=== PATIENT | male | born 1970 | race Caucasian/White ===

== ENCOUNTER 2018-02-03 17:38 | Observation (INO) | payer SELFPAY ==
[2018-02-03] MEDS ORDERED: NA CHLORIDE 0.9% 1,000 ML ONE (19:53)
[2018-02-03 20:02] LABS: Potassium 4.1 mEq/L (3.6-5.0)
[2018-02-03 20:09] LABS: Albumin 3.8 g/dL (3.2-5.5); Bilirubin Direct 0.1 mg/dL (0-0.2); Bilirubin Total 0.5 mg/dL (0.3-1.2); Protein, Total 6.7 g/dL (6.0-8.3)
[2018-02-03 20:10] LABS: Absolute Lymphocytes (CBC) 1.4 K/uL (0.7-4.9); Absolute Monocytes 0.7 K/uL (0.1-1.3); Absolute Neutrophil 6.2 K/uL (1.8-8.0); Basophils % 0.4 % (0-1.3); Eosinophils % 0.9 % (0-4.4); Hematocrit 41.3 % (39.6-49.0); Lymphocytes % 16.6 % (15.3-44.8); MCH 30.1 pg (27.0-35.0); MCV 89.4 fL (80-100); MPV 8.6 fL (7.6-11.3); Monocytes % 8.4 % (3.3-12.3); RBC Red Blood Cell Count 4.62 M/uL (4.33-5.43)
[2018-02-03 20:31] LABS: Urine Blood NEGATIVE (NEG); Urine Glucose NEGATIVE (NEG); Urine Protein 1+ (NEG); Urine Specific Gravity >1.030 (1.005-1.030); Urine pH 5.5 (5.0-7.0)
[2018-02-03 20:33] LABS: Urine Bacteria <20 /HPF (NONE SEEN); Urine RBC <5 /HPF (NONE SEEN)
[2018-02-03 20:34] LABS: Urine Culture Reflex Order NOT NEEDED
--- NOTE | 2018-02-03 20:55 | RAD REPORT ---
EXAM DESCRIPTION: RAD - Abdomen Acute Series - 02/03/2018 8:39 pm CLINICAL HISTORY: Lower chest pain, abdominal pain, abdominal distention COMPARISON: Chest and abdomen imaging September 2016 FINDINGS: Lungs are clear. Heart size and pulmonary vasculature are normal. No pleural effusion, pne umothorax or other acute cardiopulmonary process seen. Trachea is midline. Left hemidiaphragm elevati on is present but less pronounced than on the prior study. Multiple distended to minimally dilated small bowel loops are present. No gastric dilatation. No free air or pneumatosis. Reidel lobe configuration of the liver noted. No suspicious calcifications. Col on does not appear to be dilated at this time. No suspicious calcifications. No significant bone finding. IMPRESSION: Negative single view chest examination. Prominent to mildly dilated small bowel loops. No free air or pneumatosis. Ileus or enteritis current ly favored over small bowel obstruction. Continued follow-up is needed.
--- NOTE | 2018-02-03 22:13 | ER ---
Nurse's Notes [facility] Name: Rico Mcneill Age: 47 yrs Sex: Male : 1970 Arrival Date: 02/03/2018 Time: 17:40 Bed 26 Private MD: None, None Diagnosis: Ileus, unspecified;Colostomy status;Colostomy complication, unspecified;Nausea Presentation: 02/03 17:57 Presenting complaint: Patient states: Abdominal swelling and increased swelling at colostomy stoma since yesterday. Transition of care: patient was not received from another setting of care. Onset of symptoms was February 03, 2018. Risk Assessment: Do you want to hurt yourself or someone else? Patient reports no desire to harm self or others. Care prior to arrival: None. 17:57 Method Of Arrival: Ambulatory 17:57 Acuity: OCTAVIO 3 02/04 00:24 Initial Sepsis Screen: Does the patient meet any 2 criteria? No. Patient's initial tl3 sepsis screen is negative. Does the patient have a suspected source of infection? No. Patient's initial sepsis screen is negative. Triage Assessment: 02/03 17:59 General: Appears in no apparent distress. comfortable, Behavior is calm, cooperative, aj appropriate for age. Pain: Complains of pain in right lower quadrant. Neuro: Level of Consciousness is awake, alert, obeys commands, Oriented to person, place, time, situation, Appropriate for age. Respiratory: Airway is patent Respiratory effort is even, unlabored, Respiratory pattern is regular, symmetrical. GI: Abdomen is distended, Colostomy site is reddened. Ostomy appliance. Derm: Skin is intact, is healthy with good turgor, Skin is pink, warm \T\ dry. normal. Historical: - Allergies: 17:59 NKDA; aj - Home Meds: 17:59 None [Active]; aj - PMHx: 17:59 Bipolar disorder; bowel obstruction; Hypothyroidism; aj - PSHx: 17:59 Colostomy; aj - Immunization history:: Adult Immunizations up to date. - Social history:: Smoking status: Patient/guardian denies using tobacco, Patient uses alcohol, on a daily basis. - Ebola Screening: : Patient negative for fever greater than or equal to 101.5 degrees Fahrenheit, and additional compatible Ebola Virus Disease symptoms Patient denies exposure to infectious person Patient denies travel to an Ebola-affected area in the 21 days before illness onset No symptoms or risks identified at this time. - Family history:: not pertinent. Screenin:33 Abuse screen: Denies threats or abuse. Nutritional screening: No deficits noted. tl3 Tuberculosis screening: No symptoms or risk factors identified. Fall Risk None identified. Assessment: 18:33 General: Appears uncomfortable, well groomed, well developed, well nourished, Behavior tl3 is calm, cooperative, appropriate for age. Pain: Complains of pain in abdomen Pain currently is 8 out of 10 on a pain scale. Pain began 2-3 days ago. Neuro: Level of Consciousness is awake, alert, obeys commands, Oriented to person, place, time, situation, Appropriate for age. Cardiovascular: Heart tones S1 S2 present Patient's skin is warm and dry. Respiratory: Airway is patent Respiratory effort is even, unlabored, Respiratory pattern is regular, symmetrical, Breath sounds are clear bilaterally. GI: Bowel sounds present X 4 quads. hyperactive in right upper quadrant, left upper quadrant, right lower quadrant and left lower quadrant Abd is rigid X 4 quads. : No deficits noted. No signs and/or symptoms were reported regarding the genitourinary system. EENT: No deficits noted. No signs and/or symptoms were reported regarding the EENT system. Derm: No deficits noted. No signs and/or symptoms reported regarding the dermatologic system. Musculoskeletal: No deficits noted. No signs and/or symptoms reported regarding the musculoskeletal system. 18:33 GI: Reports bloating, stoma red and enlarged. tl3 19:32 Reassessment: Patient and/or family updated on plan of care and expected duration. Pain tl3 level reassessed. Patient is alert, oriented x 3, equal unlabored respirations, skin warm/dry/pink. pts stoma has greatly reduced in size, abdomen still distended. Vital Signs: 17:59 BP 127 / 84; Pulse 85; Resp 19; Temp 98.6; Pulse Ox 98% on R/A; Weight 77.11 kg; Height aj 6 ft. 1 in. (185.42 cm); 19:32 BP 118 / 88; Pulse 81; Resp 18; Pulse Ox 100% on R/A; tl3 14 00:24 BP 125 / 82; Pulse 63; Resp 18; Pulse Ox 99% on R/A; tl3 02/03 17:59 Body Mass Index 22.43 (77.11 kg, 185.42 cm) ED Course: 02/03 17:40 Patient arrived in ED. mr 17:40 None, None is Private Physician. mr 17:58 Triage completed. aj 17:59 Arm band placed on right wrist. Patient placed in an exam room. 18:16 Alma Selby, RN is Primary Nurse. tl3 18:33 Patient has correct armband on for positive identification. Bed in low position. Call tl3 light in reach. Side rails up X 1. Adult w/ patient. 18:33 No provider procedures requiring assistance completed. tl3 19:36 Urine Dipstick--Ancillary (enter results) Sent. tl3 19:42 Rashaun Jiménez MD is Attending Physician. [facility] 20:35 Patient moved to radiology via wheelchair. jb2 20:36 X-ray completed. Patient tolerated procedure well. jb2 20:36 Patient moved back from radiology. jb2 20:36 Abdomen Acute Series XRAY In Process Unspecified. EDMS 22:12 Ashlyn Robison MD is Hospitalizing Provider. [facility] 02/04 00:25 Patient admitted, IV remains in place. tl3 Administered Medications: 02/03 20:02 Drug: NS 0.9% 1000 ml Route: IV; Rate: 1 bolus; Site: right antecubital; Delivery: tl3 Primary tubing; 21:10 Follow up: IV Status: Completed infusion; IV Intake: 1000ml tl3 22:45 Drug: Pepcid 20 mg Route: IVP; Infused Over: 2 mins; Site: right antecubital; tl3 23:38 Follow up: Response: No adverse reaction tl3 22:46 Drug: Cipro 400 mg Volume: 200 ml; Route: IVPB; Infused Over: 60 mins; Site: right tl3 antecubital; 02/04 00:23 Follow up: IV Status: Completed infusion; IV Intake: 200ml tl3 02/03 22:46 Drug: Flagyl 500 mg Volume: 100 ml; Route: IVPB; Rate: 200 ml/hr; Infused Over: 30 tl3 mins; Site: right antecubital; 23:38 Follow up: IV Status: Completed infusion; IV Intake: 100ml tl3 Intake: 21:10 IV: 1000ml; Total: 1000ml. tl3 23:38 IV: 100ml; Total: 1100ml. tl3 02/04 00:23 IV: 200ml; Total: 1300ml. tl3 Outcome: 02/03 22:13 Decision to Hospitalize by Provider. [facility] 02/04 00:25 Admitted to Tele accompanied by tech, via wheelchair, with chart, Report called to tl3 BRITTNY Magaña Condition: stable Instructed on the need for admit, Demonstrated understanding of instructions. 00:26 Patient left the ED. tl3 Signatures: Dispatcher [employer] Drea Degroot, RN RN Rashaun Armenta MD MD cha Rivera, Maria mr Buechter, Jesse jb2 Lowrey, Tammy, BRITTNY RN tl3
--- NOTE | 2018-02-03 22:14 | EDPHYS ---
Physician Documentation [facility] Name: Rico Mcneill Age: 47 yrs Sex: Male : 1970 Arrival Date: 02/03/2018 Time: 17:40 Bed 26 Private MD: None, None ED Physician Rashaun Jiménez HPI: 02/03 19:48 This 47 yrs old Male presents to ER via Ambulatory with complaints of diego Abdominal Swelling. 19:48 The patient presents with abdominal pain in the lower abdomen. Onset: The diego symptoms/episode began/occurred 1 day(s) ago. The symptoms do not radiate. Associated signs and symptoms: none. The symptoms are described as crampy. Modifying factors: The symptoms are alleviated by nothing, the symptoms are aggravated by nothing. Severity of pain: At its worst the pain was mild moderate in the emergency department the pain is unchanged. The patient has not experienced similar symptoms in the past. Historical: - Allergies: 17:59 NKDA; aj - Home Meds: 17:59 None [Active]; aj - PMHx: 17:59 Bipolar disorder; bowel obstruction; Hypothyroidism; aj - PSHx: 17:59 Colostomy; aj - Immunization history:: Adult Immunizations up to date. - Social history:: Smoking status: Patient/guardian denies using tobacco, Patient uses alcohol, on a daily basis. - Ebola Screening: : Patient negative for fever greater than or equal to 101.5 degrees Fahrenheit, and additional compatible Ebola Virus Disease symptoms Patient denies exposure to infectious person Patient denies travel to an Ebola-affected area in the 21 days before illness onset No symptoms or risks identified at this time. - Family history:: not pertinent. ROS: 19:48 Constitutional: Negative for fever, chills, and weight loss, Eyes: Negative for injury, diego pain, redness, and discharge, ENT: Negative for injury, pain, and discharge, Neck: Negative for injury, pain, and swelling, Cardiovascular: Negative for chest pain, palpitations, and edema, Respiratory: Negative for shortness of breath, cough, wheezing, and pleuritic chest pain, Back: Negative for injury and pain, : Negative for injury, bleeding, discharge, and swelling, MS/Extremity: Negative for injury and deformity, Skin: Negative for injury, rash, and discoloration, Neuro: Negative for headache, weakness, numbness, tingling, and seizure, Psych: Negative for depression, anxiety, suicide ideation, homicidal ideation, and hallucinations, Allergy/Immunology: Negative for hives, rash, and allergies, Endocrine: Negative for neck swelling, polydipsia, polyuria, polyphagia, and marked weight changes, Hematologic/Lymphatic: Negative for swollen nodes, abnormal bleeding, and unusual bruising. 19:48 Abdomen/GI: Positive for abdominal pain, abdominal distension, of the right lower quadrant, colostomy. Exam: 19:48 Constitutional: This is a well developed, well nourished patient who is awake, alert, diego and in no acute distress. Head/Face: Normocephalic, atraumatic. Eyes: Pupils equal round and reactive to light, extra-ocular motions intact. Lids and lashes normal. Conjunctiva and sclera are non-icteric and not injected. Cornea within normal limits. Periorbital areas with no swelling, redness, or edema. ENT: Nares patent. No nasal discharge, no septal abnormalities noted. Tympanic membranes are normal and external auditory canals are clear. Oropharynx with no redness, swelling, or masses, exudates, or evidence of obstruction, uvula midline. Mucous membranes moist. Neck: Trachea midline, no thyromegaly or masses palpated, and no cervical lymphadenopathy. Supple, full range of motion without nuchal rigidity, or vertebral point tenderness. No Meningismus. Chest/axilla: Normal chest wall appearance and motion. Nontender with no deformity. No lesions are appreciated. Cardiovascular: Regular rate and rhythm with a normal S1 and S2. No gallops, murmurs, or rubs. Normal PMI, no JVD. No pulse deficits. Respiratory: Lungs have equal breath sounds bilaterally, clear to auscultation and percussion. No rales, rhonchi or wheezes noted. No increased work of breathing, no retractions or nasal flaring. Back: No spinal tenderness. No costovertebral tenderness. Full range of motion. Male : Normal genitalia with no discharge or lesions. Skin: Warm, dry with normal turgor. Normal color with no rashes, no lesions, and no evidence of cellulitis. MS/ Extremity: Pulses equal, no cyanosis. Neurovascular intact. Full, normal range of motion. Neuro: Awake and alert, GCS 15, oriented to person, place, time, and situation. Cranial nerves II-XII grossly intact. Motor strength 5/5 in all extremities. Sensory grossly intact. Cerebellar exam normal. Normal gait. Psych: Awake, alert, with orientation to person, place and time. Behavior, mood, and affect are within normal limits. 19:48 Abdomen/GI: Inspection: distension, Bowel sounds: hyperactive, Palpation: nontender, Liver: no appreciated palpable abnormalities, Hernia: not appreciated, colostomy right lower quadrant. Vital Signs: 17:59 BP 127 / 84; Pulse 85; Resp 19; Temp 98.6; Pulse Ox 98% on R/A; Weight 77.11 kg; Height aj 6 ft. 1 in. (185.42 cm); 19:32 BP 118 / 88; Pulse 81; Resp 18; Pulse Ox 100% on R/A; tl3 02/04 00:24 BP 125 / 82; Pulse 63; Resp 18; Pulse Ox 99% on R/A; tl3 02/03 17:59 Body Mass Index 22.43 (77.11 kg, 185.42 cm) MDM: 02/03 19:42 Patient medically screened. [facility] 19:52 Data reviewed: vital signs, nurses notes, lab test result(s), radiologic studies, plain diego films. 02/03 19:24 Order name: Urine Dipstick--Ancillary (enter results); Complete Time: 20:47 2 02/03 19:35 Order name: Amylase, Serum; Complete Time: 20:47 3 02/03 19:35 Order name: Basic Metabolic Panel; Complete Time: 20:47 3 02/03 19:35 Order name: CBC with Diff; Complete Time: 20:47 3 02/03 19:35 Order name: Creatinine for Radiology; Complete Time: 20:47 3 02/03 19:35 Order name: Hepatic Function; Complete Time: 20:47 3 02/03 19:35 Order name: Lipase; Complete Time: 20:47 3 02/03 19:35 Order name: Urine Microscopic Only; Complete Time: 20:47 3 02/03 19:48 Order name: Abdomen Acute Series XRAY; Complete Time: 21:01 diego 02/03 22:23 Order name: Abdomen W Erect EDMS 02/03 19:35 Order name: IV Saline Lock; Complete Time: 19:36 tl3 02/03 19:35 Order name: Labs collected and sent; Complete Time: 19:36 3 02/03 19:35 Order name: Urine Dipstick-Ancillary (obtain specimen); Complete Time: 19:36 3 02/03 21:00 Order name: PO challenge; Complete Time: 21:12 [facility] 02/03 22:19 Order name: CONS Physician Consult; Complete Time: 23:38 EDMS Administered Medications: 20:02 Drug: NS 0.9% 1000 ml Route: IV; Rate: 1 bolus; Site: right antecubital; Delivery: tl3 Primary tubing; 21:10 Follow up: IV Status: Completed infusion; IV Intake: 1000ml tl3 22:45 Drug: Pepcid 20 mg Route: IVP; Infused Over: 2 mins; Site: right antecubital; tl3 23:38 Follow up: Response: No adverse reaction tl3 22:46 Drug: Cipro 400 mg Volume: 200 ml; Route: IVPB; Infused Over: 60 mins; Site: right tl3 antecubital; 02/04 00:23 Follow up: IV Status: Completed infusion; IV Intake: 200ml 3 02/03 22:46 Drug: Flagyl 500 mg Volume: 100 ml; Route: IVPB; Rate: 200 ml/hr; Infused Over: 30 tl3 mins; Site: right antecubital; 23:38 Follow up: IV Status: Completed infusion; IV Intake: 100ml tl3 Disposition: 02/03/18 22:13 Hospitalization ordered by Ashlyn Robison for Observation. Preliminary diagnosis are Ileus, unspecified, Colostomy status, Colostomy complication, unspecified, Nausea. - Bed requested for Telemetry/MedSurg (observation). - Status is Observation. tl3 - Condition is Stable. - Problem is new. - Symptoms have improved. UTI on Admission? No Signatures: Dispatcher [employer] EDMarj Easley RN RN kl Myers, Amanda, RN RN aj Anderson, Corey, MD MD cha Lowrey, Tammy, RN RN tl3 Corrections: (The following items were deleted from the chart) 23:35 22:13 Hospitalization Ordered by Ashlyn Robison MD for Observation. Preliminary diagnosis is Ileus, unspecified; Colostomy status; Colostomy complication, unspecified; Nausea. Bed requested for Telemetry/MedSurg (observation). Status is Observation. Condition is Stable. Problem is new. Symptoms have improved. UTI on Admission? No. diego 02/04 00:26 02/03 23:35 02/03/2018 22:13 Hospitalization Ordered by Ashlyn Robison MD for tl3 Observation. Preliminary diagnosis is Ileus, unspecified; Colostomy status; Colostomy complication, unspecified; Nausea. Bed requested for Telemetry/MedSurg (observation). Status is Observation. Condition is Stable. Problem is new. Symptoms have improved. UTI on Admission? No. kl
[2018-02-03] MEDS ORDERED: FAMOTIDINE 20 MG/2 ML VIAL IV ONE (22:36)
[2018-02-03] MEDS ORDERED: METRONIDAZOLE 500mg IVPB 500 MG/100 ML BAG IV ONE (22:37)
[2018-02-03] MEDS: NA CHLORIDE 0.9% 1,000 ML IV SCH (23:00)
--- NOTE | 2018-02-03 23:29 | P.HP ---
Certification for Inpatient Patient admitted to: Observation With expected LOS: <2 Midnights Practitioner: I am a practitioner with admitting privileges, knowledge of patient current condition, hospital course, and medical plan of care. Services: Services provided to patient in accordance with Admission requirements found in Title 42 Section 412.3 of the Code of Federal Regulations Patient History Date of Service: 02/03/18 Reason for admission: enteritis/ileus History of Present Illness: Mr Mcneill is a 47 years old male with history of bipolar disorder, bowel resection, colostomy after a volvulus episode, who came to ED complaining of abdominal pain and increasing swelling at the stoma area. The pain is mostly on his lower abdomen described as cramps. He denied nausea or vomiting. No fever or chills either. He noticed that his stools are more liquids since this morning. Lab work shows normal WBC count. Abdominal series report ileus vs enteritis. Allergies No Known Drug Allergies Allergy (Verified 09/09/16 22:36) Unknown Home Medications: Docusate [Colace Cap] 100 mg PO BID #60 cap 09/11/16 Lactulose 20 gm PO DAILY #500 ml 09/11/16 - Past Medical/Surgical History -: HTn -: Bipolar Disorder -: HTN -: bowel obstruction -: colon resection -: colostomy - Family History Family History: Reviewed- Non-Contributory - Social History Smoking Status: Never smoker Alcohol use: Yes CD- Drugs: No Caffeine use: Yes Place of Residence: Home Review of Systems 10-point ROS is otherwise unremarkable Physical Examination - Physical Exam General: Alert, In no apparent distress HEENT: Atraumatic, PERRLA, Mucous membr. moist/pink, EOMI, Sclerae nonicteric Neck: Supple, 2+ carotid pulse no bruit, No LAD, Without JVD or thyroid abnormality Respiratory: Clear to auscultation bilaterally, Normal air movement Cardiovascular: Regular rate/rhythm, Normal S1 S2 Gastrointestinal: Hypoactive, Distended, Tenderness Musculoskeletal: No tenderness Integumentary: No rashes Neurological: Normal speech, Normal strength at 5/5 x4 extr, Normal tone, Normal affect Lymphatics: No axilla or inguinal lymphadenopathy - Studies Laboratory Data (last 24 hrs) 02/03/18 19:30: Creatinine 1.37 H 02/03/18 19:30: WBC 8.4, Hgb 13.9, Hct 41.3, Plt Count 233 02/03/18 19:30: Sodium 137, Potassium 4.1, BUN 23 H, Creatinine 1.42 H, Glucose 96, Total Bilirubin 0.5, AST 24, ALT 28, Alkaline Phosphatase 61, Amylase 41, Lipase 31 Assessment and Plan - Problems (Diagnosis) (1) Enteritis Current Visit: Yes Status: Acute (2) Ileus Current Visit: Yes Status: Acute (3) Bipolar 1 disorder, depressed Current Visit: No Status: Chronic - Plan The patient will be admitted to the hospital due to possible enteritis vs ileus. Will continue empiric abx treatment. Keep the patient NPO, start I fluids , empiric antibiotic therapy. Consult Dr Diaz. - Advance Directives Does patient have a Living Will: No Does patient have a Durable POA for Healthcare: No
[2018-02-04] MEDS: NA CHLORIDE 0.9% 1,000 ML IV SCH ×5 (00:56→23:00)
[2018-02-04] MEDS ORDERED: ONDANSETRON 4 MG/2 ML VIAL IV PRN (01:10)
[2018-02-04 01:11] VITALS: BMI 26.4
[2018-02-04] MEDS: METRONIDAZOLE 500mg IVPB 500 MG/100 ML BAG IV SCH ×4 (05:46→16:59)
[2018-02-04 05:52] LABS: Absolute Lymphocytes (CBC) 1.3 K/uL (0.7-4.9); Absolute Monocytes 0.6 K/uL (0.1-1.3); Basophils % 0.8 % (0-1.3); Eosinophils % 1.7 % (0-4.4); Hematocrit 38.5 % (39.6-49.0); Lymphocytes % 25.6 % (15.3-44.8); MCH 30.2 pg (27.0-35.0); MCV 89.2 fL (80-100); MPV 8.4 fL (7.6-11.3); Monocytes % 12.2 % (3.3-12.3); RBC Red Blood Cell Count 4.32 M/uL (4.33-5.43)
[2018-02-04 06:07] LABS: Potassium 3.5 mEq/L (3.6-5.0)
[2018-02-04 06:30] LABS: Magnesium 2.2 mg/dL (1.8-2.5)
[2018-02-04] MEDS: CIPROFLOXACIN 400mg IV 400 MG/200 ML BAG IV SCH ×2 (08:42→20:55)
[2018-02-04] MEDS ORDERED: KCL 20 MEQ/100 mL IVPB 20 MEQ/100 ML BAG IV SCH (09:00)
--- NOTE | 2018-02-04 10:22 | RAD REPORT ---
EXAM DESCRIPTION: RAD - Abdomen W Erect - 02/04/2018 7:05 am CLINICAL HISTORY: ileus Pain COMPARISON: 09/10/2016 FINDINGS: The bowel gas pattern is non-obstructive. No evidence of free air or pneumatosis. Moderate fecal retention is seen. No suspicious calcifications. No significant bony findings. IMPRESSION: Negative examination.
--- NOTE | 2018-02-04 16:59 | PN ---
Date of Progress Note: 02/04/2018 Subjective: The patient seen and examined, chart reviewed, and case discussed with RN. The patient states, he is still having some abdominal pain and swelling of the ostomy. Review of Systems: Negative except as above. Medications: Reviewed. Objective: Vital signs: Temperature 97.3, heart rate 66, blood pressure 122/89, respirations 18, an d O2 98% on room air. General: Awake, alert, oriented x3, some mild distress, ill-appearing male. CV: S1, S2. No murmurs. Regular rate and rhythm. Peripheral pulses present. Respiratory: Clear to auscultation bilaterally. No wheezing. No stridor. No use of accessory musc les. Gastrointestinal: Abdomen is soft. Mild distention. Mild tenderness to palpation. Ostomy site wit h some swelling of the stoma with some dark liquid stool. Extremities: No clubbing, cyanosis, edema. Neurologic: Nonfocal. Laboratory Data: Sodium 140, potassium 3.5, chloride 109, CO2 25, BUN 18, creatinine 1.07, glucose 8 9, calcium 8.1, and magnesium 2.2. WBC 5, H and H 13.1, 38.5, and platelets 191. Abdominal x-ray, p ersonally reviewed, shows negative examination. Bowel gas pattern is nonobstructive, Assessment And Plan: A 47-year-old male with; 1.Enteritis. Continue supportive care. Continue IV fluids. Follow up on stool cultures. 2.Ileus. Abdominal x-ray does not show any obstructive pattern. Dr. Diaz has been consulted. We will follow up with his recommendation. 3.Bipolar 1 disorder, depressed. 4.Essential hypertension, stable. Plan: Continue empiric antibiotics, IV fluids, follow up with surgical recommendations, keep n.p.o. SA/MODL Voice ID: [id number] Report ID: [id number]
[2018-02-04 18:49] VITALS: O2SAT 98
--- NOTE | 2018-02-04 22:53 | CON ---
Date of Consultation: 02/03/2018 Diagnosis: Abdominal pain. Indications: This is a case of a 47-year-old patient with multiple medical problems including bipola r disorder and history of colostomy after a bowel obstruction many years ago, who come with abdominal pain to the ER overnight. He describe his abdominal pain as on and off cramps. No dysuria, hematur ia, hematochezia, or melena. No recent traveling out of the country. No family member sick at home. The patient had an x-ray that suggests an ileus, so the patient was admitted for observation and a surgical consult was obtained. Past Medical History: Hypertension, bipolar, bowel obstruction, colon resection from volvulus. Surgical History: Include bowel resection and colostomy. Family History: Noncontributory. Allergies: NONE. Medication: Colace and lactulose. Social History: The patient does not smoke. He does not drink alcohol. Review of Systems: Constitutional: Denies any fever. Gastrointestinal: As above. Respiratory: Denies any shortness of breath. Genitourinary: Denies any dysuria or hematuria. Physical Examination: General: The patient is awake and alert. HEENT: Pupils are equal and reactive, anicteric. Neck: Supple. Chest: Clear. Heart: S1, S2. Abdomen: Softly distended. Bowel sounds positive. Ostomy intact. There is some gas on the ostomy back at this moment. The ostomy looked nice and pink. The abdomen's midline incision looks well hea led with no guarding or rebound. Rectal: Deferred. Extremities: Good capillary refill. Laboratory Data: Blood work shows WBC count of 8.4, hemoglobin of 13.9, creatinine is 1.42. UA, nit rite and blood negative. X-ray of the abdomen and pelvis was reviewed with the patient with findings possible consistent with an enteritis or gastroenteritis per Dr. Lebron. Assessment: This is a 47-year-old patient, who come with abdominal pain. He feels better today, pas sing gas from the ostomy site. He is tolerating clear liquid diet, and he is tolerating that. We go ing to advance diet slowly. He was counseled once again on proper chewing of his foot. He understan ds the surgical options in case if he develop bowel obstruction. The benefits, alternatives, and ris ks fully explained to him. Hopefully, he improved with conservative treatment. We are going to cont inue with serial abdominal examinations and advance diet. ANGIE/CAROLE Voice ID: [id number] Report ID: [id number]
[2018-02-05] MEDS: METRONIDAZOLE 500mg IVPB 500 MG/100 ML BAG IV SCH ×5 (00:14→23:20)
[2018-02-05] MEDS: NA CHLORIDE 0.9% 1,000 ML IV SCH ×4 (05:07→20:56)
[2018-02-05 05:13] LABS: Potassium 3.7 mEq/L (3.6-5.0)
[2018-02-05] MEDS ORDERED: POTASSIUM CL SA 10 MEQ TAB PO ONE (06:30)
[2018-02-05] MEDS: CIPROFLOXACIN 400mg IV 400 MG/200 ML BAG IV SCH ×2 (09:11→20:55)
--- NOTE | 2018-02-05 20:07 | P.PN ---
Subjective Date of Service: 02/05/18 Primary Care Provider: none Chief Complaint: enteritis/ileus Subjective: Tolerating diet (Clears, will increase to full liquid, Colostomy contents remain liquid/watery) Review of Systems General: Malaise Eyes: Unremarkable ENT: Unremarkable Respiratory: Unremarkable Cardiovascular: Unremarkable Gastrointestinal: As per HPI Genitourinary: Unremarkable Musculoskeletal: Unremarkable Integumentary: Unremarkable Neurological: Unremarkable Physical Examination - Vital Signs Temperature: 97.6 F Blood Pressure: 159/70 Pulse: 64 Respirations: 16 Pulse Ox (%): 99 - Physical Exam General: Alert, In no apparent distress, Oriented x3 HEENT: Atraumatic, Normocephalic, PERRLA Neck: Supple, 2+ carotid pulse no bruit, JVD not distended Respiratory: Clear to auscultation bilaterally, Normal air movement Cardiovascular: No edema, Normal pulses, Regular rate/rhythm Capillary refill: <2 Seconds Gastrointestinal: Other (no vomiting today, green soupy colostomy contents), Hyperactive Musculoskeletal: No clubbing, No swelling Integumentary: No rashes, No breakdown Neurological: Normal gait, Normal speech Lymphatics: No axilla or inguinal lymphadenopathy External genitalia: Deferred Rectal: Deferred Assessment & Plan - Problems (Diagnosis) (1) Enteritis Onset Date: 02/04/18 Current Visit: Yes Status: Acute Plan: Advance diet, keep on empiric antibiotics, reassessment per Dr. Diaz with probable discharge tomorrow
[2018-02-06] MEDS: METRONIDAZOLE 500mg IVPB 500 MG/100 ML BAG IV SCH ×4 (05:18→23:33)
[2018-02-06 07:07] LABS: Potassium 3.8 mEq/L (3.6-5.0)
[2018-02-06] MEDS: CIPROFLOXACIN 400mg IV 400 MG/200 ML BAG IV SCH ×2 (08:31→20:34)
[2018-02-06] MEDS: NA CHLORIDE 0.9% 1,000 ML IV SCH ×3 (08:37→23:31)
[2018-02-06] MEDS ORDERED: POTASSIUM 25 MEQ EFFERV TAB PO ONE (09:00)
--- NOTE | 2018-02-06 12:35 | P.PN ---
Subjective Date of Service: 02/06/18 Primary Care Provider: none Chief Complaint: enteritis/ileus Subjective: Improving (Patient is doing much better no new complaints diet has been advanced) Review of Systems is unable to be obtained Physical Examination - Vital Signs Temperature: 97.7 F Blood Pressure: 97/62 Pulse: 76 Respirations: 15 Pulse Ox (%): 98 - Physical Exam General: Alert, Oriented x3 Neck: Supple Respiratory: Clear to auscultation bilaterally Cardiovascular: No edema Gastrointestinal: Normal bowel sounds, Soft and benign Assessment & Plan - Problems (Diagnosis) (1) Enteritis Onset Date: 02/04/18 Current Visit: Yes Status: Acute Plan: Patient is 47 years of age admitted with abdominal pain antritis currently doing better diet will be advanced chemistries unremarkable CBC normal vital signs stable patient is on IV antibiotics possible discharge Discharge Plan: Home
[2018-02-07] MEDS: METRONIDAZOLE 500mg IVPB 500 MG/100 ML BAG IV SCH (05:27)
[2018-02-07 08:49] VITALS: BP 124/78; TEMP 97.3
[2018-02-07] MEDS: CIPROFLOXACIN 400mg IV 400 MG/200 ML BAG IV SCH (08:54)
[2018-02-07] MEDS: NA CHLORIDE 0.9% 1,000 ML IV SCH (08:54)
--- NOTE | 2018-02-07 10:12 | P.DS ---
Admission Date: 02/03/18 Discharge Date: 02/07/18 Primary Care Provider: none Disposition: ROUTINE DISCHARGE Discharge Condition: FAIR Reason for Admission: enteritis/ileus Consultations: Dr. Tal Diaz - [place] (1) Enteritis Onset Date: 02/04/18 Current Visit: Yes Status: Acute Brief History of Present Illness: 47-year-old admitted with abdominal pain and swelling in the stromal area Hospital Course: Patient's x-rays showed enteritis versus small-bowel obstruction he did well with conservative therapy at the time of discharge patient was well alert oriented responsive cooperative tolerating a full diet vital signs all stable labs unremarkable On examination chest clear cardiovascular stem os all normal abdomen soft extremities no edema Vital Signs/Physical Exam: Temp Pulse Resp BP Pulse Ox 97.3 F 61 19 124/78 99 02/07/18 08:00 02/07/18 08:00 02/07/18 08:00 02/07/18 08:00 02/07/18 08:00 Laboratory Data at Discharge: WBC 5.0 K/uL (4.3-10.9) D 02/04/18 05:12 Hgb 13.1 g/dL (13.6-17.9) L 02/04/18 05:12 Hct 38.5 % (39.6-49.0) L 02/04/18 05:12 Plt Count 191 K/uL (152-406) 02/04/18 05:12 Sodium 140 mEq/L (135-145) 02/06/18 05:57 Potassium 4.0 mEq/L (3.6-5.0) 02/07/18 05:27 BUN 5 mg/dL (6-20) L 02/06/18 05:57 Creatinine 1.12 mg/dL (0.61-1.24) 02/06/18 05:57 Glucose 108 mg/dL (65-120) 02/06/18 05:57 Magnesium 2.2 mg/dL (1.8-2.5) 02/04/18 05:12 Total Bilirubin 0.5 mg/dL (0.3-1.2) 02/03/18 19:30 AST 24 IU/L (10-42) 02/03/18 19:30 ALT 28 IU/L (10-60) 02/03/18 19:30 Alkaline Phosphatase 61 IU/L (42-121) 02/03/18 19:30 Amylase 41 U/L (28-100) 02/03/18 19:30 Lipase 31 U/L (22-51) 02/03/18 19:30 Home Medications: NK [No Home Meds] 02/04/18 Diet: Regular Activity: Ad tomeka Followup: Tal Diaz MD [ACTIVE - CAN ADMIT] -
== END 2018-02-07 11:10 | disposition home or self-care (01) ==
LOC: ER 17:38 → ERHOLD 22:33 → 4TH 23:40
PROVIDERS: ADMIT Internal Medicine; ATTEND Internal Medicine Sleep Medicine
DX: K52.9 Noninfective gastroenteritis and colitis, unspecified (principal); K56.7 Ileus, unspecified; I10 Essential (primary) hypertension; F31.9 Bipolar disorder, unspecified; Z93.3 Colostomy status; R53.81 Other malaise
CPT/HCPCS: 36415; 74019; 74022; 80048; 80076; 81003; 81015; 82150; 83690; 83735; 84132; 85025; 96361; 96365; 96366; 96368; 96375; 99285; G0378; J0744; J7030

== ENCOUNTER 2018-03-14 10:07 | Emergency (ER) | payer SELFPAY ==
--- OUTSIDE RECORDS SUMMARY | 2018-03-14 10:10 | XMS REPORT | Clinical Summary ---
:1970 Author Organization [facility] Address [address] [place] [id number] Care Team Providers Name Role Phone Unavailable Primary Care Provider Unavailable Allergies No Known Allergies Current Medications Prescription Sig. Disp. Refills Start Date End Date Status thiamine, B-1, 100 mg Take 1 tablet 100 tablet 0 04/14/2017 Active tabletIndications: by mouth Alcohol abuse, in daily. remission multivitamin (DAILY Take 1 tablet 100 tablet 0 04/14/2017 Active VITES) by mouth tabletIndications: daily. Alcohol abuse, in remission diphenhydrAMINE Take 1 capsule 24 capsule 0 04/23/2017 05/03/2017 (BANOPHEN) 25 mg by mouth every capsuleIndications: 6 hours as Environmental needed for up allergies to 10 days for Allergies. Active Problems Problem Noted Date Disorder of stoma 05/08/2017 Encounters Date Type Specialty Care Team Description 07/28/2017 Office Visit General Surgery Dennys Arias NO SHOW ENCOUNTER (Primary Dx) Sophia Schultz PA 06/22/2017 - Emergency Emergency Medicine 06/23/2017 06/09/2017 Office Visit General Surgery Nathaniel Granados NO SHOW ENCOUNTER (Primary Dx) Sophia Schultz PA 05/08/2017 Emergency Emergency Medicine Nini Godoy MD Disorder of stoma (Primary Dx); Colostomy complication, unspecified; Intestinal stoma prolapse 04/23/2017 Office Visit Family Practice Leonora Goetz Environmental allergies (Primary Dx); D, WIRE SETTER Homeless; Health education 04/17/2017 Nurse Only Elba Thomason [facility] KADE Evans care (Primary Dx) 04/14/2017 Office Visit Family Practice Leonora Goetz Routine physical examination (Primary Dx); D, WIRE SETTER Alcohol abuse, in remission; Colostomy present; Preventative health care; Positive depression screening; Homeless; Health education; Screening for HIV without presence of risk factors after 03/13/2017 Immunizations Name Dates Previously Given Next Due PPD 04/14/2017 Family History Relation Name Status Comments Father Mother Social History Tobacco Use Types Packs/Day Years Used Date Never Smoker Smokeless Tobacco: Current User Alcohol Use Drinks/Week oz/Week Comments Yes Sex Assigned at Date Recorded Not on file Last Filed Vital Signs Vital Sign Reading Time Taken Blood Pressure 125/83 06/23/2017 3:50 AM CDT Pulse 64 06/23/2017 3:50 AM CDT Temperature 36.7 C (98.1 F) 06/23/2017 3:50 AM CDT Respiratory Rate 18 06/23/2017 3:50 AM CDT Oxygen Saturation 99% 06/23/2017 3:50 AM CDT Inhaled Oxygen Concentration - - Weight 89.4 kg (197 lb) 04/23/2017 1:04 PM CDT Height 182.9 cm (6') 04/23/2017 1:04 PM CDT Body Mass Index 26.72 04/23/2017 1:04 PM CDT Plan of Treatment Health Maintenance Due Date Last Done Comments IMM Influenza Seasonal May to October (>/=19 yrs) 05/24/2018 Results TROPONIN I POC (06/23/2017 3:30 AM)Only the most recent of3 resultswithin the time period is included. Component Value Ref Range Troponin POC 0.00 0.00 - 0.08 ng/mL Specimen Performing Laboratory MISYS 12 LEAD EKG (06/23/2017 3:21 AM)Only the most recent of3 resultswithin the time period is included. 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 Measurements IntervalsAxis Rate: 67 P: 9 LA: 130QRS: 64 QRSD: 106T: 78 QT: 374 QTc:395 Interpretive Statements SINUS RHYTHM POSSIBLE RIGHT VENTRICULAR CONDUCTION DELAY Electronically Signed On 06-23-17 05:04:21 CDT by Chepe Juan M.D. Specimen Performing Laboratory SMS BMP POC (06/22/2017 10:23 PM)Only the most recent of3 resultswithin the time period is included. Component Value Ref Range CO2 POC 26Comment: Physician Notified 21 - 32 mmol/L Chloride POC 98 98 - 107 mmol/L Potassium POC 3.1 (L) 3.50 - 5.10 mmol/L Sodium POC 138 136 - 145 mmol/L Glucose POC 115 (H) 74 - 106 mg/dL Urea Nitrogen POC 14 7 - 18 mg/dL Creatinine POC 0.9 0.6 - 1.3 mg/dL Calcium Ionized POC 1.10 (L) 1.15 - 1.29 mmol/L Hemoglobin POC 17.0 14.0 - 18.0 g/dL Hematocrit POC 50.0 40.0 - 54.0 % GFR, Estimated >60 mL/min/1.73 m2 GFR, Estim, Afr-Am >60 mL/min/1.73 m2 Specimen Performing Laboratory MIS[facility] XRAY CHEST 2 VIEWS (06/22/2017 9:48 PM) Specimen Performing Laboratory SMS Impressions IMPRESSION: No acute abnormality. If the report is described as "FINALIZED" it indicates the attending/staff radiologist below has reviewed the images and agrees with the resident's interpretation. Dictated By: Mervin Zepeda MD, 06/22/2017 11:35 PM I have reviewed the study and agree with the findings in this report. Signed By: Maia Montes MD, 06/23/2017 12:45 AM Narrative EXAM: XRAY CHEST 2 VIEWS 06/22/2017 9:48 PM INDICATION: cp COMPARISON: None FINDINGS: Unremarkable appearance of the heart, mediastinum, lungs and pleural spaces. Mildly elevated left hemidiaphragm. Mild gaseous distention of the visualized stomach. Procedure Note Interface, Rad/Mammog In - 06/23/2017 12:50 AM CDT EXAM: XRAY CHEST 2 VIEWS 06/22/2017 9:48 PM INDICATION: cp COMPARISON: None FINDINGS: Unremarkable appearance of the heart, mediastinum, lungs and pleural spaces. Mildly elevated left hemidiaphragm. Mild gaseous distention of the visualized stomach. IMPRESSION IMPRESSION: No acute abnormality. If the report is described as "FINALIZED" it indicates the attending/staff radiologist below has reviewed the images and agrees with the resident's interpretation. Dictated By: Mervin Zepeda MD, 06/22/2017 11:35 PM I have reviewed the study and agree with the findings in this report. Signed By: Maia Montes MD, 06/23/2017 12:45 AM HIV-1/HIV-2 ROUTINE SCREENING (06/22/2017 9:30 PM) Component Value Ref Range HIV-1/HIV-2 Negative NEG Specimen Performing Laboratory MISYS CBC/DIFF (06/22/2017 9:30 PM)Only the most recent of2 resultswithin the time period is included. Component Value Ref Range WBC 6.1 4.5 - 12.0 K/uL RBC 4.60 4.60 - 6.20 M/uL Hemoglobin 14.0 14.0 - 18.0 g/dL Hematocrit 42.9 40.0 - 54.0 % MCV 93 (H) 82 - 92 fL MCH 30.4 27.0 - 31.0 pg MCHC 32.6 32.0 - 36.0 g/dL RDW 44.9 (H) 35.1 - 43.9 fL Platelet 197 150 - 400 K/uL Mean Platelet Volume 10.5 9.4 - 12.4 fL Percent NRBC 0.0 Absolute NRBC 0.00 Neutrophil 62.9 34.0 - 67.9 % Lymphocyte 24.5 21.8 - 50.0 % Monocyte 10.6 5.3 - 12.0 % Eosinophil 1.5 0.8 - 5.0 % Basophil 0.3 0.2 - 1.2 % Pct Immat Gran 0.2 0.0 - 0.5 Neutrophil, Abs 3.81 1.78 - 5.36 K/uL Lymphocyte, Abs 1.48 1.32 - 3.57 K/uL Monocyte, Abs 0.64 0.30 - 0.82 K/uL Eosinophil, Abs 0.09 0.04 - 0.54 K/uL Basophil, Abs 0.02 0.01 - 0.08 K/uL Absol Immat Gran 0.01 0.00 - 0.03 K/uL Specimen Performing Laboratory Blood MISYS VBG POC (05/07/2017 3:49 PM) Component Value Ref Range pH, Ruthann POC 7.29 (L)Comment: Physician Notified 7.33 - 7.43 pCO2, Ruthann POC 55.7 (H) 38.0 - 50.0 mm Hg pO2, Ruthann POC 17 (L) 50 - 75 mm Hg Base Deficit, Ruthann POC 1 HCO3, Ruthann POC 26.6 (H) 22.0 - 26.0 mmol/L % Sat, Ruthann POC 20 (L) 60 - 85 % Lactic Acid, Ruthann POC 1.33 0.4 - 2.0 mmol/L Sample Type Ruthann TCO2, RUTHANN POC 28 21 - 32 mmol/L Specimen Performing Laboratory [facility] UA CHEMISTRIES (05/07/2017 3:45 PM) Component Value Ref Range Color Yellow Clarity Clear Spec [place] 1.023 1.001 - 1.035 pH 5.0 5 - 8 Protein Negative NEG Glucose Negative NEG Ketone Negative NEG Bilirubin Negative NEG Nitrate Negative NEG Urobilinogen <1.0 0.2 - 1.0 EU/dL Leukocyte Negative NEG Blood Negative NEG Specimen Performing Laboratory Urine MISYS LIVER PROFILE (05/07/2017 3:45 PM) Component Value Ref Range T Protein 6.7 6.4 - 8.2 g/dL Albumin 3.8 3.4 - 5.0 g/dL T Bilirubin 0.3 0.2 - 1.0 mg/dL Alk Phos 96 45 - 117 U/L AST 21 15 - 37 U/L ALT 32 12 - 78 U/L D Bilirubin 0.1 0.0 - 0.2 mg/dL Specimen Performing Laboratory Blood MISYS LIPASE (05/07/2017 3:45 PM) Component Value Ref Range Lipase 262 73 - 393 U/L Specimen Performing Laboratory Blood MISYS POC RAPID HIV (04/14/2017 1:52 PM) Component Value Ref Range Rapid HIV Result Negative Rapid HIV Control Done Specimen Performing Laboratory Blood GLUCOSE POC (04/14/2017 1:51 PM) Component Value Ref Range Glucose POC 149 (H) 74 - 106 mg/dL Specimen Performing Laboratory MISYS after 03/13/2017
--- OUTSIDE RECORDS SUMMARY | 2018-03-14 10:10 | XMS REPORT ---
:1970 Author Organization [facility] Address [address] [place] [address] [address] [place] [address] Care Team Providers Name Role Phone UNKNOWN, REFFERING Primary Care Provider Unavailable VANIA PERAZA Unavailable Unavailable Problems This patient has no known problems. Allergies, Adverse Reactions, Alerts This patient has no known allergies or adverse reactions. Medications This patient has no known medications. Encounters Start End Encounter Admission Attending Care Care Encounter Date/Time Date/Time Type Type Clinicians Facility Department ID 2017-11-02 2017-11-02 Emergency [facility] MED [id number] 08:33:00 08:33:00 2017-08-05 2017-08-05 Outpatient [facility] [id number] 00:00:00 00:00:00 2017-07-28 2017-07-28 Outpatient [facility] [id number] 00:00:00 00:00:00 2017-06-24 2017-06-24 Outpatient [facility] [id number] 00:00:00 00:00:00 2017-06-22 2017-06-22 Emergency [facility] [id number] 21:37:29 21:37:29 2017-06-22 2017-06-22 Emergency [facility] [id number] 21:06:00 21:06:00 2017-06-22 2017-06-22 Outpatient [facility] [id number] 10:02:31 10:02:31 2017-06-09 2017-06-09 Outpatient [facility] [id number] 00:00:00 00:00:00 2017-06-09 2017-06-09 Outpatient [facility] [id number] 00:00:00 00:00:00 2017-05-08 2017-05-08 Emergency [facility] MED [id number] 01:04:44 01:04:44 2017-05-05 2017-05-05 Emergency [facility] MED [id number] 08:11:00 08:11:00 2017-04-15 2017-04-15 Emergency [facility] MED [id number] 09:53:00 09:53:00 2017-04-14 2017-04-14 Outpatient [facility] [id number] 13:31:02 13:31:02 Results Test Description Test Time Test Comments Text Results Atomic Results Result Comments XR ABDOMEN 2 VIEWS 2017-05-05 09:03:45 XR ABDOMEN 2 VIEWSLOCATION: [id number]: Colstomy ProlapseCOMPARISON: Chest radiograph 04/15/2017, CT of the abdomen and pelvis04/14/2017FINDINGS: AP chest and AP supine/upright abdominal radiographs are obtained.The lungs are grossly clear. There is no evidence for pneumothorax. The cardiomediastinal silhouette is within normal limits. A nonspecific, nonobstructive bowel gas pattern is present.There is no evidence for pneumoperitoneum.There are no acute osseous abnormalities.IMPRESSION: 1. No acute cardiopulmonary abnormalities.2. Nonspecific, nonobstructive bowel gas pattern. XR CHEST 1 VIEW 2017-04-15 11:32:15 EXAM: CHEST ONE VIEWINDICATION: Chest painCOMPARISON: None availableTECHNIQUE: AP view of the chest.FINDINGS: The cardiomediastinal silhouette is normal. The lungs are clearbilaterally. No pneumothorax or pleural effusion is identified. Theosseous structures are unremarkable.IMPRESSION: No acute cardiopulmonary process.LOCATION: R16 Blood Type and RH 2017-04-14 21:21:00 Test Item Value Reference Range Comments ABO type (test code=ABO) O Rh Type (test code=RH) Positive Comprehensive Metabolic [id number] 20:36:00 Test Item Value Reference Range Comments Sodium (test code=NA) 137 mmol/L 135-145 Potassium (test code=K) 4.5 mmol/L 3.5-5.1 Chloride (test code=CL) 103 mmol/L 98-105 Carbon Dioxide (test 25 mmol/L 22-29 code=CO2) Glucose (test code=GLU) 85 mg/dL 70-115 Blood Urea Nitrogen 19 mg/dL 6-20 (test code=BUN) Creatinine (test 1.1 mg/dL 0.7-1.2 code=CREAT) Calcium (test code=CA) 9.3 mg/dL 8.3-10.5 Prot Total (test 6.7 g/dL 6.4-8.3 code=TP) Albumin (test code=ALB) 4.3 g/dL 3.5-5.2 A/G Ratio (test 1.8 Ratio code=AGRATIO) Globulin (test 2.4 2.9-3.1 code=GLOB) Bili Total (test 0.3 mg/dL 0.1-0.9 code=TBIL) Alk Phos (test 67 U/L 40-129 code=APHOS) AST (test code=AST) 22 U/L 1-40 HEMOLYZED ALT (test code=ALT) 18 U/L 1-41 BUN/Creatinine Ratio 17.3 (test code=BCRATIO) Anion Gap (test 9 mmol/L 7-16 code=AGAP) Estimated GFR (test >60 mL/min/1.73m2 eGFR (estimated Glomerular code=GFR) Filtration Rate) is an estimated value,calculated from the patient's serum creatinine using the MDRD equation.It is NOT the patient's actual GFR. The eGFR provides a more clinicallyuseful measure of kidney disease than serum creatinine alone.This calculation takes sex and race into account, if the informationis provided. If the race is not provided, and the patient isAfrican-Barbadian, multiply by 1.212. If sex is not provided, and thepatient is female, multiply by 0.742. Results for patients <18 years ofage have not been validated by the MDRD study and should be interpretedwith caution.eGFR Result Interpretation:eGFR > or=60 is in the Normal RangeeGFR < 60 may mean kidney diseaseeGFR < 15 may mean kidney failureRanges recommended by the National Kidney Foundation,http://nkdep.nih .gov Alcohol/Ethanol, [id number] 20:36:00 Test Item Value Reference Range Comments Alcohol, Ethyl (test <0.01 g/dL 0.00-0.01 Intoxicated 0.080 g/dL or code=ETOH) more Prothrombin [id number] 20:00:00 Test Item Value Reference Range Comments PT (test code=PT) 10.10 seconds 9.78-13.35 INR (test code=INR) 0.88 Ratio 0.6-1.2 Partial Thromboplastin [id number] 20:00:00 Test Item Value Reference Range Comments aPTT (test code=PTT) 31.50 seconds 24.39-37.25 CBC with [id number] 19:50:00 Test Item Value Reference Range Comments WBC (test code=WBC) 6.5 K/cumm 4.4-10.5 RBC (test code=RBC) 4.78 M/cumm 4.10-5.70 Hemoglobin (test code=HGB) 14.0 gm/dL 13.4-17.4 Hematocrit (test code=HCT) 44.9 % 38.7-52.0 MCV (test code=MCV) 93.8 fL 80-100 MCH (test code=MCH) 29.2 pg 27.0-32.5 MCHC (test code=MCHC) 31.1 g/dL 32.0-37.5 RDW (test code=RDW) 16.7 % 11.5-14.5 Platelet Count (test code=PLTCT) 208 K/cumm 140-440 MPV (test code=MPV) 8.6 fL Diff Method (test code=DIFFM) Auto Neutrophil (test code=NEUT) 55.7 % 36-70 Lymphocyte (test code=LYMPH) 34.6 % 12-44 Monocyte (test code=MONO) 6.6 % 0-11 Eosinophil (test code=EOS) 2.6 % 0-7 Basophil (test code=BASO) 0.5 % 0-2 Neutro Abs (test code=ANEUT) 3.6 K/cumm 1.6-7.4 Lymph Abs (test code=ALYMPH) 2.2 K/cumm 0.5-4.6 [place] Abs (test code=AMONO) 0.4 K/cumm 0.0-1.2 Eos Abs (test code=AEOS) 0.17 K/cumm 0.00-0.74 Baso Abs (test code=ABASO) 0.0 K/cumm 0.00-0.21 78531& PELVIS W/O [id number] 17:36:28CT ABDOMEN AND PELVIS WITHOUT CONTRAST.CLINICAL HISTORY: Abdominal pain, GI bleeding, abdominal surgery 6months ago COMPARISON: None TECHNIQUE: Noncontrast images of the abdomen and pelvis were obtainedfrom the diaphragm to the pelvic floor. Coronal and sagittal reformatswere obtained. Oral contrast was not provided. One or more of thefollowing dose reduction techniques were used: Automated exposurecontrol, adjustment of the mA and/or kV according to patient size,and/or utilization of iterative reconstruction technique. FINDINGS:The visualized lung bases are clear. No pleural effusion is seen. Theheart size is normal.Evaluation of the abdominal viscera is limited to lack of intravenouscontrast. The left hepatic lobe is diminutive. No intrahepatic mass isidentified. The gallbladder is contracted. The spleen is normal insize. The pancreas, adrenal glands, and kidneys appear normal. Nohydronephrosis or nephrolithiasis is identified.Oral contrast was not provided. The patient has a right lower quadrantileostomy. The small and large bowel loops show mild diffuse wallthickening. There is no abnormally distended loop of bowel to suggestan obstruction. No free air or free fluid is seen. The normal appendixis identified. The urinary bladder is empty. The prostate gland is normal in size. Noadenopathy is identified.The bones are intact.IMPRESSION: 1. Mild nonspecific wall thickening of the small and large bowel. Correlate for possible enterocolitis.2. Right lower quadrant ileostomy.Location: R16
--- NOTE | 2018-03-14 11:54 | EDPHYS ---
Physician Documentation [facility] Name: Rico Mcneill Age: 48 yrs Sex: Male : 1970 Arrival Date: 03/14/2018 Time: 10:08 Bed 5 Private MD: None, None ED Physician Rashaun Jiménez HPI: 03/14 10:45 This 48 yrs old Male presents to ER via Ambulatory with complaints of needing snw colostomy bags. 10:45 The patient presents with need of supplies. Onset: The symptoms/episode began/occurred snw gradually, 1 week(s) ago, and became persistent. The symptoms do not radiate. Associated signs and symptoms: Pertinent positives: using cup to collect colostomy discharge. The symptoms are described as none. Severity of pain: in the emergency department the pain none. The patient has experienced similar episodes in the past. It is unknown whether or not the patient has recently seen a physician. pt is homeless and has had no colostomy supplies x 1 week. Historical: - Allergies: 10:41 NKDA; iw - PMHx: 10:41 Bipolar disorder; bowel obstruction; Hypertension; Hypothyroidism; iw - PSHx: 10:41 Colostomy; iw - Immunization history:: Adult Immunizations not up to date. - Social history:: Smoking status: Patient uses tobacco products, chewing tobacco. - Ebola Screening: : No symptoms or risks identified at this time. ROS: 10:40 Constitutional: Negative for fever, chills, and weight loss, Eyes: Negative for injury, snw pain, redness, and discharge, ENT: Negative for injury, pain, and discharge, Neck: Negative for injury, pain, and swelling, Cardiovascular: Negative for chest pain, palpitations, and edema, Respiratory: Negative for shortness of breath, cough, wheezing, and pleuritic chest pain, Back: Negative for injury and pain, : Negative for injury, bleeding, discharge, and swelling, MS/Extremity: Negative for injury and deformity, Skin: Negative for injury, rash, and discoloration, Neuro: Negative for headache, weakness, numbness, tingling, and seizure. 10:40 Abdomen/GI: Positive for needs supplies for colostomy, pt is homeless and is using a paper cup to collect stool. Exam: 10:41 Head/Face: Normocephalic, atraumatic. Eyes: Pupils equal round and reactive to light, snw extra-ocular motions intact. Lids and lashes normal. Conjunctiva and sclera are non-icteric and not injected. Cornea within normal limits. Periorbital areas with no swelling, redness, or edema. ENT: Nares patent. No nasal discharge, no septal abnormalities noted. Tympanic membranes are normal and external auditory canals are clear. Oropharynx with no redness, swelling, or masses, exudates, or evidence of obstruction, uvula midline. Mucous membranes moist. Neck: Trachea midline, no thyromegaly or masses palpated, and no cervical lymphadenopathy. Supple, full range of motion without nuchal rigidity, or vertebral point tenderness. No Meningismus. Chest/axilla: Normal chest wall appearance and motion. Nontender with no deformity. No lesions are appreciated. Cardiovascular: Regular rate and rhythm with a normal S1 and S2. No gallops, murmurs, or rubs. Normal PMI, no JVD. No pulse deficits. Respiratory: Lungs have equal breath sounds bilaterally, clear to auscultation and percussion. No rales, rhonchi or wheezes noted. No increased work of breathing, no retractions or nasal flaring. Back: No spinal tenderness. No costovertebral tenderness. Full range of motion. Skin: Warm, dry with normal turgor. Normal color with no rashes, no lesions, and no evidence of cellulitis. MS/ Extremity: Pulses equal, no cyanosis. Neurovascular intact. Full, normal range of motion. Neuro: Awake and alert, GCS 15, oriented to person, place, time, and situation. Cranial nerves II-XII grossly intact. Motor strength 5/5 in all extremities. Sensory grossly intact. Cerebellar exam normal. Normal gait. 10:41 Constitutional: The patient appears in no acute distress, excessively tanned skin 10:41 Abdomen/GI: Inspection: abdomen appears normal, colostomy with external stoma, denies pain, denies bleeding, normal appearance per patient. Vital Signs: 10:40 BP 120 / 83; Pulse 83; Resp 16 S; Temp 98.6; Pulse Ox 98% on R/A; Weight 77.11 kg; iw Height 6 ft. 1 in. (185.42 cm); Pain 0/10; 11:55 BP 114 / 74; Pulse 88; Resp 18 S; Pulse Ox 99% on R/A; aa5 10:40 Body Mass Index 22.43 (77.11 kg, 185.42 cm) [facility]: 10:28 Patient medically screened. [facility] 11:54 Data reviewed: vital signs, nurses notes. Data interpreted: Pulse oximetry: on room air snw is 98 %. Interpretation: normal. Counseling: I had a detailed discussion with the patient and/or guardian regarding: the historical points, exam findings, and any diagnostic results supporting the discharge/admit diagnosis, the presence of at least one elevated blood pressure reading (>120/80) during this emergency department visit, the need for outpatient follow up, to return to the emergency department if symptoms worsen or persist or if there are any questions or concerns that arise at home. Special discussion: Based on the history and exam findings, there is no indication for further emergent testing or inpatient evaluation. I discussed with the patient/guardian the need to see the primary care provider for further evaluation of the symptoms. 03/14 11:51 [place] [facility] [place] supply; Complete Time: 11:59 snw Administered Medications: No medications were administered Disposition: 03/14/18 11:52 Discharged to Home. Impression: Encounter for screening, unspecified. - Condition is Stable. - Medication Reconciliation Form, Thank You Letter, Antibiotic Education, Prescription Opioid Use form. - Follow up: Private Physician; When: 2 - 3 days; Reason: Recheck today's complaints, Continuance of care, Re-evaluation by your physician. Follow up: Emergency Department; When: As needed; Reason: Worsening of condition. Addendum: 03/15/2018 15:16 Co-signature as Attending Physician, Rashaun Jiménez MD I agree with the assessment and c bojorquez plan of care. Signatures: Rashaun Jiménez MD MD cha Therrien, Shelly, TAPROOM ATTENDANT-C TAPROOM ATTENDANT-Csnw Ashlie Goetz, RN RN Julissa Maldonado RN RN aa5 Corrections: (The following items were deleted from the chart) 03/14 12:03 11:52 03/14/2018 11:52 Discharged to Home. Impression: Encounter for screening, aa5 unspecified. Condition is Stable. Forms are Medication Reconciliation Form, Thank You Letter, Antibiotic Education, Prescription Opioid Use. Follow up: Private Physician; When: 2 - 3 days; Reason: Recheck today's complaints, Continuance of care, Re-evaluation by your physician. Follow up: Emergency Department; When: As needed; Reason: Worsening of condition. snw
--- NOTE | 2018-03-14 11:54 | ER ---
Nurse's Notes [facility] Name: Rico Mcneill Age: 48 yrs Sex: Male : 1970 Arrival Date: 03/14/2018 Time: 10:08 Bed 5 Private MD: None, None Diagnosis: Encounter for screening, unspecified Presentation: 03/14 10:35 Presenting complaint: Patient states: has been out of colostomy supplies X 1 month, pt iw is homeless and has not been able to buy supplies, hx of colostomy X 2 years at [facility] s/p bowel obstruction. 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 Transition of care: patient was not received from another setting of care. Onset of symptoms was January 2018. Care prior to arrival: None. 10:35 Method Of Arrival: Ambulatory iw 10:38 Risk Assessment: Do you want to hurt yourself or someone else? Patient reports no iw desire to harm self or others. Initial Sepsis Screen: Does the patient meet any 2 criteria? No. Patient's initial sepsis screen is negative. Does the patient have a suspected source of infection? No. Patient's initial sepsis screen is negative. 10:38 Acuity: OCTAVIO 3 iw Historical: - Allergies: 10:41 NKDA; iw - PMHx: 10:41 Bipolar disorder; bowel obstruction; Hypertension; Hypothyroidism; iw - PSHx: 10:41 Colostomy; iw - Immunization history:: Adult Immunizations not up to date. - Social history:: Smoking status: Patient uses tobacco products, chewing tobacco. - Ebola Screening: : No symptoms or risks identified at this time. Screenin:40 Abuse screen: Denies threats or abuse. Nutritional screening: No deficits noted. aa5 Tuberculosis screening: No symptoms or risk factors identified. Fall Risk None identified. Assessment: 10:40 General: Appears comfortable, Behavior is calm, cooperative. Pain: Denies pain. Neuro: aa5 Level of Consciousness is awake, alert, obeys commands, Oriented to person, place, time, situation. Cardiovascular: Heart tones S1 S2 present Rhythm is regular. Respiratory: Airway is patent Respiratory effort is even, unlabored, Respiratory pattern is regular, symmetrical. GI: Abdomen is distended, Colostomy site is clean and dry. appears healthy, red in color, no ostomy appliance noted at this time. Pt states "my ostomy bag blew up last night and that was my last one" Bowel sounds present X 4 quads. Abd is non tender X 4 quads. : No signs and/or symptoms were reported regarding the genitourinary system. EENT: No signs and/or symptoms were reported regarding the EENT system. Derm: Skin is pink, warm \\T\\ dry. Musculoskeletal: Range of motion: intact in all extremities. 11:52 Reassessment: Colostomy care provided, colostomy bag placed with paste and secured with aa5 colostomy belt. Pt also given several colostomy supplies per [employer]. Pt reports he is homeless and unable to afford supplies. Pt also reports friend will help him buy supplies later. . 12:00 Reassessment: Patient is alert, oriented x 3, equal unlabored respirations, skin aa5 warm/dry/pink. Vital Signs: 10:40 BP 120 / 83; Pulse 83; Resp 16 S; Temp 98.6; Pulse Ox 98% on R/A; Weight 77.11 kg; iw Height 6 ft. 1 in. (185.42 cm); Pain 0/10; 11:55 BP 114 / 74; Pulse 88; Resp 18 S; Pulse Ox 99% on R/A; aa5 10:40 Body Mass Index 22.43 (77.11 kg, 185.42 cm) iw ED Course: 10:08 Patient arrived in ED. mr 10:10 None, None is Private Physician. mr 10:15 [facility] snw 10:15 Rashaun Jiménez MD is Attending Physician. snw 10:32 Julissa Roy, BRITTNY is Primary Nurse. aa5 10:39 Triage completed. iw 10:40 Arm band placed on. iw 10:40 Patient has correct armband on for positive identification. Placed in gown. Bed in low aa5 position. Call light in reach. Side rails up X2. Adult w/ patient. 12:00 Patient did not have IV access during this emergency room visit. aa5 12:00 No provider procedures requiring assistance completed. aa5 Administered Medications: No medications were administered Outcome: 11:52 Discharge ordered by . snw 12:00 Discharged to home ambulatory, with friend. aa5 12:00 Condition: good 12:00 Discharge instructions given to patient, Instructed on discharge instructions, follow up and referral plans. Demonstrated understanding of instructions, follow-up care. 12:03 Patient left the ED. aa5 Signatures: Belem Mcnamara FNP-C FNP-Elisa Sutton Ashlie Goetz, RN RN iw Julissa Roy RN RN aa5 Corrections: (The following items were deleted from the chart) 10:39 10:35 Presenting complaint: Patient states: has been out of colostomy supplies X 1 iw month, pt is homeless and has not been able to buy supplies, hx of colostomy X 2 years at [facility] s/p bowel obstruction. Pt denies pain, abd distention is chronic since the colostomy iw
[2018-03-14 12:06] VITALS: BP 120/83; TEMP 98.6; O2SAT 98
== END 2018-03-14 12:03 | disposition home or self-care (01) ==
LOC: ER 10:07
DX: Z13.9 Encounter for screening, unspecified (principal); I10 Essential (primary) hypertension; Z72.0 Tobacco use
CPT/HCPCS: 99281

== ENCOUNTER 2018-11-27 20:08 | Emergency (ER) | payer SELFPAY ==
--- OUTSIDE RECORDS SUMMARY | 2018-11-27 20:10 | XMS REPORT ---
:1970 Author Organization [facility] Address [address] [place] [address] [address]. [address] [place] [address] Care Team Providers Name Role Phone UNKNOWN, [...] Facility Department ID 2017-11-02 2017-11-02 Emergency [facility] [id number] 08:33:00 08:33:00 2017-08-05 2017-08-05 Outpatient [facility] [id number] 00:00:00 00:00:00 2017-07-28 2017-07-28 Outpatient [facility] [id number] 00:00:00 00:00:00 2017-06-24 2017-06-24 Outpatient [facility] [id number] 00:00:00 00:00:00 2017-06-22 2017-06-22 Emergency [facility] [id number] 21:37:29 21:37:29 2017-06-22 2017-06-22 Emergency [facility] [id number] 21:06:00 21:06:00 2017-06-22 2017-06-22 Outpatient [facility] [id number] 10:02:31 10:02:31 2017-06-09 2017-06-09 Outpatient [facility] [id number] 00:00:00 00:00:00 2017-06-09 2017-06-09 Outpatient [facility] [id number] 00:00:00 00:00:00 2017-05-08 2017-05-08 Emergency [facility] MED [id number] 01:04:44 01:04:44 2017-05-05 2017-05-05 Emergency [facility] [id number] 08:11:00 08:11:00 2017-04-15 2017-04-15 Emergency [facility] MED [id number] 09:53:00 09:53:00 2017-04-14 2017-04-14 Outpatient [facility] [id number] 13:31:02 13:31:02 Results Test Description Test Time Test Comments Text Results Atomic Results Result Comments XR ABDOMEN 2 VIEWS 2017-05-05 09:03:45 XR ABDOMEN 2 VIEWSLOCATION: [id number]: Colstomy ProlapseCOMPARISON: Chest radiograph 04/15/2017, CT of [...] Rh Type (test code=RH) Positive Comprehensive Metabolic [id number] 20:36:00 Test Item Value Reference Range Comments [...] race is not provided, and the patient isAfrican-Andorran, multiply by 1.212. If sex is not provided, and thepatient is female, multiply by 0.742. Results for patients <18 years ofage have not been validated by the MDRD study and should be interpretedwith caution.eGFR Result Interpretation:eGFR > or=60 is in the Normal RangeeGFR < 60 may mean kidney diseaseeGFR < 15 may mean kidney failureRanges recommended by the National Kidney Foundation,http://nkdep.nih .gov Alcohol/Ethanol, [id number] 20:36:00 Test Item Value Reference Range Comments Alcohol, Ethyl (test <0.01 g/dL 0.00-0.01 Intoxicated 0.080 g/dL or code=ETOH) more Prothrombin [id number] 20:00:00 Test Item Value Reference Range Comments PT (test code=PT) 10.10 seconds 9.78-13.35 INR (test code=INR) 0.88 Ratio 0.6-1.2 Partial Thromboplastin [id number] 20:00:00 Test Item Value Reference Range Comments aPTT (test code=PTT) 31.50 seconds 24.39-37.25 CBC with [id number] 19:50:00 Test Item Value Reference Range Comments [...] Lymph Abs (test code=ALYMPH) 2.2 K/cumm 0.5-4.6 [place] Abs (test code=AMONO) 0.4 K/cumm 0.0-1.2 Eos Abs (test code=AEOS) 0.17 K/cumm 0.00-0.74 Baso Abs (test code=ABASO) 0.0 K/cumm 0.00-0.21 [id number]& PELVIS W/O [id number] 17:36:28CT ABDOMEN AND PELVIS WITHOUT CONTRAST.CLINICAL HISTORY: [...]
[2018-11-27] MEDS ORDERED: NA CHLORIDE 0.9% 1,000 ML ONE (20:53)
--- NOTE | 2018-11-27 22:00 | ER ---
Nurse's Notes [facility] Name: Rico Mcneill Age: 48 yrs Sex: Male : 1970 Arrival Date: 11/27/2018 Time: 20:10 Bed 30 Private MD: Diagnosis: Colostomy complication, unspecified Presentation: 11/27 20:11 Presenting complaint: EMS states: they were toned out for report of pt with abdominal bb pain, pt is indigent and has a GI stoma which is open and protruding pt does not have supplies to keep stoma covered for approx 2 weeks now. Transition of care: patient was not received from another setting of care. Onset of symptoms was November 14, 2018. Risk Assessment: Do you want to hurt yourself or someone else? Patient reports no desire to harm self or others. Initial Sepsis Screen: Does the patient meet any 2 criteria? No. Patient's initial sepsis screen is negative. Does the patient have a suspected source of infection? Yes: Skin breakdown/wound. Care prior to arrival: Medication(s) given: Normal saline infusion, toradol 30 mg IV initiated. 20 GA, in the left forearm. 20:11 Method Of Arrival: EMS: [facility] bb 20:11 Acuity: OCTAVIO 2 bb Historical: - Allergies: 20:18 NKDA; bb - Home Meds: 20:18 None [Active]; bb - PMHx: 20:18 Bipolar disorder; bowel obstruction; Hypertension; Hypothyroidism; bb - PSHx: 20:18 bowel surgery with ileostomy; bb - Immunization history:: Adult Immunizations unknown. - Social history:: Smoking status: Patient/guardian denies using tobacco, Patient uses alcohol, occasionally. - Ebola Screening: : No symptoms or risks identified at this time. Screenin:47 Abuse screen: Denies threats or abuse. Denies injuries from another. Nutritional mg2 screening: No deficits noted. Tuberculosis screening: No symptoms or risk factors identified. Fall Risk IV access (20 points). Assessment: 20:45 General: Appears in no apparent distress. comfortable, Behavior is calm, cooperative. mg2 Pain: Complains of pain in abdomen Pain does not radiate. Pain currently is 3 out of 10 on a pain scale. Quality of pain is described as aching, Pain began gradually, Is intermittent. Neuro: Level of Consciousness is awake, alert, obeys commands, Oriented to person, place, time, situation. Cardiovascular: Capillary refill < 3 seconds Patient's skin is warm and dry. Respiratory: Airway is patent Respiratory effort is even, unlabored, Respiratory pattern is regular, symmetrical. GI: Abdomen is round distended, Colostomy site is reddened. is not intact. open without colostomy bag in placed., Reports lower abdominal pain, upper abdominal pain. 20:48 GI: Bowel sounds present X 4 quads. Abd is rigid X 4 quads. mg2 22:26 Reassessment: Patient denies pain at this time. mg2 22:27 Reassessment: colostomy bag applied. patient tolerated well. mg2 Vital Signs: 20:18 BP 130 / 93; Pulse 82; Resp 16 S; Temp 99.6(O); Pulse Ox 99% on R/A; Weight 79.38 kg bb (R); Height 6 ft. 1 in. (185.42 cm) (R); Pain 6/10; 22:20 BP 125 / 78; Pulse 80; Resp 18; Pulse Ox 100% on R/A; Pain 0/10; mg2 20:18 Body Mass Index 23.09 (79.38 kg, 185.42 cm) bb ED Course: 20:10 Patient arrived in ED. bb 20:13 Triage completed. bb 20:18 Oliver Sweeney MD is Attending Physician. gs 20:18 Arm band placed on Patient placed in an exam room, on a stretcher, on pulse oximetry. bb 20:40 Edgardo Tinoco, BRITTNY is Primary Nurse. mg2 20:47 No provider procedures requiring assistance completed. Maintain EMS IV. Dressing mg2 intact. Good blood return noted. Site clean \T\ dry. Gauge \T\ site: 20 \T\ LFA. 20:48 Patient has correct armband on for positive identification. Pulse ox on. NIBP on. Door mg2 closed. Warm blanket given. 21:59 Tal Diaz MD is Referral Physician. gs 22:26 IV discontinued, intact, bleeding controlled, No redness/swelling at site. Pressure mg2 dressing applied. Wound care:. Administered Medications: 20:44 Drug: NS 0.9% 1000 ml Route: IV; Rate: 1 bolus; Site: left forearm; mg2 22:28 Follow up: Response: No adverse reaction; IV Status: Completed infusion mg2 Outcome: 21:59 Discharge ordered by . uday 22:28 Discharged to home ambulatory. mg2 22:28 Condition: stable 22:28 Discharge instructions given to patient, Instructed on discharge instructions, follow up and referral plans. Demonstrated understanding of instructions, follow-up care. 22:29 Patient left the ED. mg2 Signatures: Montserrat Parnell RN RN bb Oliver Sweeney MD MD gs Gardose, Michele, RN RN mg2
--- NOTE | 2018-11-27 22:00 | EDPHYS ---
Physician Documentation [facility] Name: Rico Mcneill Age: 48 yrs Sex: Male : 1970 Arrival Date: 11/27/2018 Time: 20:10 Bed 30 Private MD: ED Physician Oliver Sweeney HPI: 11/27 21:26 This 48 yrs old Male presents to ER via EMS with complaints of GI stoma gs problem. 21:26 The patient presents with no colostomy bags for 2 weeks. Associated signs and symptoms: gs Pertinent negatives: nausea and vomiting, diarrhea, dysuria, fever. The symptoms are described as achy. Severity of pain: At its worst the pain was very mild in the emergency department the pain is unchanged. The patient has experienced similar episodes in the past, a few times. Historical: - Allergies: 20:18 NKDA; bb - Home Meds: 20:18 None [Active]; bb - PMHx: 20:18 Bipolar disorder; bowel obstruction; Hypertension; Hypothyroidism; bb - PSHx: 20:18 bowel surgery with ileostomy; bb - Immunization history:: Adult Immunizations unknown. - Social history:: Smoking status: Patient/guardian denies using tobacco, Patient uses alcohol, occasionally. - Ebola Screening: : No symptoms or risks identified at this time. ROS: 21:26 All other systems are negative. gs Exam: 21:26 Head/Face: Normocephalic, atraumatic. Eyes: Pupils equal round and reactive to light, gs extra-ocular motions intact. Lids and lashes normal. Conjunctiva and sclera are non-icteric and not injected. Cornea within normal limits. Periorbital areas with no swelling, redness, or edema. ENT: Nares patent. No nasal discharge, no septal abnormalities noted. Tympanic membranes are normal and external auditory canals are clear. Oropharynx with no redness, swelling, or masses, exudates, or evidence of obstruction, uvula midline. Mucous membranes moist. Neck: Trachea midline, no thyromegaly or masses palpated, and no cervical lymphadenopathy. Supple, full range of motion without nuchal rigidity, or vertebral point tenderness. No Meningismus. Chest/axilla: Normal chest wall appearance and motion. Nontender with no deformity. No lesions are appreciated. Cardiovascular: Regular rate and rhythm with a normal S1 and S2. No gallops, murmurs, or rubs. Normal PMI, no JVD. No pulse deficits. Respiratory: Lungs have equal breath sounds bilaterally, clear to auscultation and percussion. No rales, rhonchi or wheezes noted. No increased work of breathing, no retractions or nasal flaring. Back: No spinal tenderness. No costovertebral tenderness. Full range of motion. Skin: Warm, dry with normal turgor. Normal color with no rashes, no lesions, and no evidence of cellulitis. MS/ Extremity: Pulses equal, no cyanosis. Neurovascular intact. Full, normal range of motion. Neuro: Awake and alert, GCS 15, oriented to person, place, time, and situation. Cranial nerves II-XII grossly intact. Motor strength 5/5 in all extremities. Sensory grossly intact. Cerebellar exam normal. Normal gait. 21:26 Constitutional: The patient appears alert, awake. 21:26 Abdomen/GI: Palpation: abdomen is soft and non-tender, in all quadrants, stoma intact good output no cellulitis. Vital Signs: 20:18 BP 130 / 93; Pulse 82; Resp 16 S; Temp 99.6(O); Pulse Ox 99% on R/A; Weight 79.38 kg bb (R); Height 6 ft. 1 in. (185.42 cm) (R); Pain 6/10; 22:20 BP 125 / 78; Pulse 80; Resp 18; Pulse Ox 100% on R/A; Pain 0/10; mg2 20:18 Body Mass Index 23.09 (79.38 kg, 185.42 cm) bb MDM: 20:34 Patient medically screened. 21:26 Data reviewed: vital signs, nurses notes. ED course: supplies given, ivf given at pt gs req he thinks he is dehydrated. Administered Medications: 20:44 Drug: NS 0.9% 1000 ml Route: IV; Rate: 1 bolus; Site: left forearm; mg2 22:28 Follow up: Response: No adverse reaction; IV Status: Completed infusion mg2 Disposition: 11/27/18 21:59 Discharged to Home. Impression: Colostomy complication, unspecified. - Condition is Stable. - Discharge Instructions: Colostomy Home Guide, Adult. - Medication Reconciliation Form, Thank You Letter, Antibiotic Education, Prescription Opioid Use form. - Follow up: Tal Diaz MD; When: 2 - 3 days; Reason: Re-evaluation by your physician. Signatures: Montserrat Parnell RN RN bb Oliver Sweeney MD MD gs Edgardo Tinoco RN RN mg2 Corrections: (The following items were deleted from the chart) 22:29 21:59 11/27/2018 21:59 Discharged to Home. Impression: Colostomy complication, mg2 unspecified. Condition is Stable. Forms are Medication Reconciliation Form, Thank You Letter, Antibiotic Education, Prescription Opioid Use. Follow up: Tal Diaz; When: 2 - 3 days; Reason: Re-evaluation by your physician. gs
[2018-11-27 22:49] VITALS: TEMP 99.6
[2018-11-27 22:54] VITALS: BP 125/78; O2SAT 100
== END 2018-11-27 22:29 | disposition home or self-care (01) ==
LOC: ER 20:08
DX: K94.09 Other complications of colostomy (principal); I10 Essential (primary) hypertension
CPT/HCPCS: 96360; 96361; 99284; J7030

== ENCOUNTER 2018-12-08 04:49 | Emergency (ER) | payer SELFPAY ==
--- OUTSIDE RECORDS SUMMARY | 2018-12-08 04:52 | XMS REPORT ---
:1970 [facility] Address [address] [place] [address] Dr. Huitron[address] [place] [id number] Care Team Providers Name Role Phone UNKNOWN, [...] Facility Department ID 2017-11-02 2017-11-02 Emergency [facility] [id number] 08:33:00 08:33:00 2017-08-05 2017-08-05 Outpatient [facility] [id number] 00:00:00 00:00:00 2017-07-28 2017-07-28 Outpatient [facility] [id number] 00:00:00 00:00:00 2017-06-24 2017-06-24 Outpatient [facility] [id number] 00:00:00 00:00:00 2017-06-22 2017-06-22 Emergency [facility] [id number] 21:37:29 21:37:29 2017-06-22 2017-06-22 Emergency [facility] [id number] 21:06:00 21:06:00 2017-06-22 2017-06-22 Outpatient [facility] [id number] 10:02:31 10:02:31 2017-06-09 2017-06-09 Outpatient [facility] [id number] 00:00:00 00:00:00 2017-06-09 2017-06-09 Outpatient [facility] [id number] 00:00:00 00:00:00 2017-05-08 2017-05-08 Emergency [facility] MED [id number] 01:04:44 01:04:44 2017-05-05 2017-05-05 Emergency [facility] [id number] 08:11:00 08:11:00 2017-04-15 2017-04-15 Emergency [facility] [id number] 09:53:00 09:53:00 2017-04-14 2017-04-14 Outpatient [facility] [id number] 13:31:02 13:31:02 Results Test Description Test Time Test Comments Text Results Atomic Results Result Comments XR ABDOMEN 2 VIEWS 2017-05-05 09:03:45 XR ABDOMEN 2 VIEWSLOCATION: [id number]: Colstomy ProlapseCOMPARISON: Chest radiograph 04/15/2017, CT of [...] Rh Type (test code=RH) Positive Comprehensive Metabolic [id number] 20:36:00 Test Item Value Reference Range Comments [...] race is not provided, and the patient isAfrican-Venezuelan, multiply by 1.212. If sex is not provided, and thepatient is female, multiply by 0.742. Results for patients <18 years ofage have not been validated by the MDRD study and should be interpretedwith caution.eGFR Result Interpretation:eGFR > or=60 is in the Normal RangeeGFR < 60 may mean kidney diseaseeGFR < 15 may mean kidney failureRanges recommended by the National Kidney Foundation,http://nkdep.nih .gov Alcohol/Ethanol, [id number] 20:36:00 Test Item Value Reference Range Comments Alcohol, Ethyl (test <0.01 g/dL 0.00-0.01 Intoxicated 0.080 g/dL or code=ETOH) more Prothrombin [id number] 20:00:00 Test Item Value Reference Range Comments PT (test code=PT) 10.10 seconds 9.78-13.35 INR (test code=INR) 0.88 Ratio 0.6-1.2 Partial Thromboplastin [id number] 20:00:00 Test Item Value Reference Range Comments aPTT (test code=PTT) 31.50 seconds 24.39-37.25 CBC with [id number] 19:50:00 Test Item Value Reference Range Comments [...] Lymph Abs (test code=ALYMPH) 2.2 K/cumm 0.5-4.6 [place] Abs (test code=AMONO) 0.4 K/cumm 0.0-1.2 Eos Abs (test code=AEOS) 0.17 K/cumm 0.00-0.74 Baso Abs (test code=ABASO) 0.0 K/cumm 0.00-0.21 11476& PELVIS W/O [id number] 17:36:28CT ABDOMEN AND PELVIS WITHOUT CONTRAST.CLINICAL HISTORY: [...]
--- NOTE | 2018-12-08 06:33 | EDPHYS ---
Physician Documentation [facility] Name: Rico Mcneill Age: 48 yrs Sex: Male : 1970 Arrival Date: 12/08/2018 Time: 05:07 Bed 16 Private MD: ED Physician Chris Ramirez HPI: 12/08 05:35 This 48 yrs old Male presents to ER via EMS with unknown complaint. pkl 05:35 abdominal distention. Onset: The symptoms/episode began/occurred today. H/O colostomy. pkl Denies abdominal pain. Complain of abdominal distention. Historical: - Allergies: 05:11 NKDA; jb4 - Home Meds: 05:11 None [Active]; jb4 - PMHx: 05:11 Bipolar disorder; bowel obstruction; Hypertension; Hypothyroidism; jb4 - PSHx: 05:16 ilieostomy; jb4 - Immunization history:: Adult Immunizations unknown. - Social history:: Smoking status: Patient/guardian denies using tobacco, Patient uses alcohol, occasionally. - Ebola Screening: : No symptoms or risks identified at this time. ROS: 05:35 Eyes: Negative for injury, pain, redness, and discharge, ENT: Negative for injury, pkl pain, and discharge, Neck: Negative for injury, pain, and swelling, Cardiovascular: Negative for chest pain, palpitations, and edema, Respiratory: Negative for shortness of breath, cough, wheezing, and pleuritic chest pain. 05:35 Abdomen/GI: Positive for abdominal distension. 05:35 Back: Negative for acute changes. 05:35 : Negative for urinary symptoms. 05:35 MS/extremity: Negative for acute changes. 05:35 Skin: Negative for rash. 05:35 Neuro: Negative for altered mental status. Exam: 05:35 Head/Face: Normocephalic, atraumatic. Eyes: Pupils equal round and reactive to light, pkl extra-ocular motions intact. Lids and lashes normal. Conjunctiva and sclera are non-icteric and not injected. Cornea within normal limits. Periorbital areas with no swelling, redness, or edema. ENT: Nares patent. No nasal discharge, no septal abnormalities noted. Tympanic membranes are normal and external auditory canals are clear. Oropharynx with no redness, swelling, or masses, exudates, or evidence of obstruction, uvula midline. Mucous membranes moist. Neck: Trachea midline, no thyromegaly or masses palpated, and no cervical lymphadenopathy. Supple, full range of motion without nuchal rigidity, or vertebral point tenderness. No Meningismus. Chest/axilla: Normal chest wall appearance and motion. Nontender with no deformity. No lesions are appreciated. Cardiovascular: Regular rate and rhythm with a normal S1 and S2. No gallops, murmurs, or rubs. Normal PMI, no JVD. No pulse deficits. Respiratory: Lungs have equal breath sounds bilaterally, clear to auscultation and percussion. No rales, rhonchi or wheezes noted. No increased work of breathing, no retractions or nasal flaring. 05:35 Abdomen/GI: Inspection: distension, that is mild, Bowel sounds: normal, Palpation: abdomen is soft and non-tender, in all quadrants. 05:35 Back: Exam negative for acute changes. 05:35 : Exam negative for acute changes. 05:35 Musculoskeletal/extremity: Exam is negative for acute changes. 05:35 Skin: Exam negative for rash. 05:35 Neuro: Orientation: is normal, Mentation: is normal, Cranial nerves: grossly normal, Motor: is normal. Vital Signs: 05:11 BP 131 / 93; Pulse 76; Resp 16; Temp 97.9(O); Pulse Ox 100% on R/A; Weight 79.38 kg jb4 (R); Height 6 ft. 1 in. (185.42 cm) (R); Pain 0/10; 06:00 BP 97 / 67; Pulse 74; Resp 16; Pulse Ox 100% on R/A; jb4 06:39 BP 123 / 87; Pulse 77; Resp 16; Pulse Ox 97% on R/A; jb4 05:11 Body Mass Index 23.09 (79.38 kg, 185.42 cm) jb4 MDM: 05:12 Patient medically screened. pkl 06:12 Data reviewed: vital signs, nurses notes, radiologic studies, plain films. pkl 12/08 05:33 Order name: XRAY Abdomen Acute Series pkl Administered Medications: No medications were administered Disposition: 12/08/18 06:32 Discharged to Home. Impression: Abdominal Distension. - Condition is Stable. - Medication Reconciliation Form, Thank You Letter, Antibiotic Education, Prescription Opioid Use form. - Follow up: Private Physician; When: 2 - 3 days; Reason: Re-evaluation by your physician. - Problem is new. - Symptoms have improved. Signatures: Dispatcher [employer] Chris Flores MD MD pkl Nathaniel Kumar, RN RN jb4 Corrections: (The following items were deleted from the chart) 05:16 05:11 PSHx: Colostomy; jb4 jb4 06:42 06:32 12/08/2018 06:32 Discharged to Home. Impression: Abdominal Distension. Condition jb4 is Stable. Forms are Medication Reconciliation Form, Thank You Letter, Antibiotic Education, Prescription Opioid Use. Follow up: Private Physician; When: 2 - 3 days; Reason: Re-evaluation by your physician. Problem is new. Symptoms have improved. pkl
--- NOTE | 2018-12-08 06:33 | ER ---
Nurse's Notes [facility] Name: Rico Mcneill Age: 48 yrs Sex: Male : 1970 Arrival Date: 12/08/2018 Time: 05:07 Bed 16 Private MD: Diagnosis: Abdominal Distension Presentation: 12/08 05:07 Presenting complaint: Patient states: I am out of ileostomy bags and I have been having jb4 recurring distention of my stomach. I have not had any pain but this is not normal and it keeps coming back. I was wanting to get it checked out. EMS states: Pt was found by Abdifatah Rodrigez who called us. Upon arrival, pt reported being out of Ileostomy bags and was holding a cup to his ostomy. Transition of care: patient was not received from another setting of care. Onset of symptoms. Risk Assessment: Do you want to hurt yourself or someone else? Patient reports no desire to harm self or others. Initial Sepsis Screen: Does the patient meet any 2 criteria? No. Patient's initial sepsis screen is negative. Does the patient have a suspected source of infection? No. Patient's initial sepsis screen is negative. Care prior to arrival: None. 05:07 Method Of Arrival: EMS: [facility] jb4 05:07 Acuity: OCTAVIO 4 jb4 Triage Assessment: 05:11 General: Appears in no apparent distress. comfortable, Behavior is calm, cooperative, jb4 appropriate for age. Pain: Denies pain. EENT: No signs and/or symptoms were reported regarding the EENT system. Neuro: Level of Consciousness is awake, alert, obeys commands, Oriented to person, place, time, situation. Cardiovascular: Patient's skin is warm and dry. Respiratory: Airway is patent Respiratory effort is even, unlabored, Respiratory pattern is regular, symmetrical. GI: Ileostomy site is clean and dry. Ostomy appliance is not intact. Reports bloating, Pt has an ileostomy with not bag attached. Reports being out of appliances for the ostomy, reports recurring distention and bloating that has been going of for "a while". : No signs and/or symptoms were reported regarding the genitourinary system. Derm: Skin is intact, Skin is pink, warm \\T\\ dry. Musculoskeletal: Circulation, motion, and sensation intact. Historical: - Allergies: 05:11 NKDA; jb4 - Home Meds: 05:11 None [Active]; jb4 - PMHx: 05:11 Bipolar disorder; bowel obstruction; Hypertension; Hypothyroidism; jb4 - PSHx: 05:16 ilieostomy; jb4 - Immunization history:: Adult Immunizations unknown. - Social history:: Smoking status: Patient/guardian denies using tobacco, Patient uses alcohol, occasionally. - Ebola Screening: : No symptoms or risks identified at this time. Screenin:17 Abuse screen: Denies threats or abuse. Nutritional screening: No deficits noted. jb4 Tuberculosis screening: No symptoms or risk factors identified. Fall Risk None identified. Assessment: 05:17 General: See triage assessment.. jb4 06:10 Reassessment: Patient appears in no apparent distress at this time. Patient and/or jb4 family updated on plan of care and expected duration. Pain level reassessed. Patient is alert, oriented x 3, equal unlabored respirations, skin warm/dry/pink. Ostomy bag put in place. 06:39 Reassessment: Patient appears in no apparent distress at this time. Patient and/or jb4 family updated on plan of care and expected duration. Pain level reassessed. Patient is alert, oriented x 3, equal unlabored respirations, skin warm/dry/pink. PT discharged to [facility], colostomy bag intact, provider a information about community resources to assist with obtaining additional supplies and healthcare. pt is ambulatory A\\T\\o4, no signs of pain or distress noted. verbalized understanding of instructions. Vital Signs: 05:11 BP 131 / 93; Pulse 76; Resp 16; Temp 97.9(O); Pulse Ox 100% on R/A; Weight 79.38 kg jb4 (R); Height 6 ft. 1 in. (185.42 cm) (R); Pain 0/10; 06:00 BP 97 / 67; Pulse 74; Resp 16; Pulse Ox 100% on R/A; jb4 06:39 BP 123 / 87; Pulse 77; Resp 16; Pulse Ox 97% on R/A; jb4 05:11 Body Mass Index 23.09 (79.38 kg, 185.42 cm) 4 ED Course: 05:07 Patient arrived in ED. jb4 05:10 Triage completed. jb4 05:11 Arm band placed on left wrist. jb4 05:12 Chris Ramirez MD is Attending Physician. pkl 05:17 Patient has correct armband on for positive identification. Bed in low position. Call jb4 light in reach. Side rails up X 1. Pulse ox on. NIBP on. 05:45 Nathaniel Kumar, RN is Primary Nurse. jb4 06:21 Patient moved to radiology via wheelchair. kw 06:21 X-ray completed. Patient tolerated procedure well. kw 06:21 Patient moved back from radiology. kw 06:22 XRAY Abdomen Acute Series In Process Unspecified. EDMS 06:39 No provider procedures requiring assistance completed. Patient did not have IV access jb4 during this emergency room visit. Administered Medications: No medications were administered Outcome: 06:32 Discharge ordered by . pkl 06:39 Discharged to home ambulatory. jb4 06:39 Condition: stable 06:39 Discharge instructions given to patient, Instructed on discharge instructions, follow up and referral plans. Demonstrated understanding of instructions, follow-up care. 06:42 Patient left the ED. jb4 Signatures: Dispatcher [employer] EDRI Chris Ramirez MD MD Sowmya Angulo James, RN RN jb4 Corrections: (The following items were deleted from the chart) 05:16 05:11 PSHx: Colostomy; jb4 jb4 05:17 05:07 Presenting complaint: Patient states: I am out of colostomy bags and I have been jb4 having recurring distention of my stomach. I have not had any pain but this is not normal and it keeps coming back. I was wanting to get it checked out. EMS states: Pt was found by Abdifatah Rodrigez who called us. Upon arrival, pt reported being out of Colostomy bags and was holding a cup to his ostomy. jb4
[2018-12-08 06:47] VITALS: TEMP 97.9
[2018-12-08 06:51] VITALS: BP 123/87; O2SAT 97
--- NOTE | 2018-12-08 08:25 | RAD REPORT ---
EXAM DESCRIPTION: RAD - Abdomen Acute Series - 12/08/2018 6:29 am CLINICAL HISTORY: ABDOMINAL DISTENTION COMPARISON: Abdomen Acute Series dated 02/03/2018; Abdomen Acute Series dated 10/07/2016; Chest Single View dated 09/09/2016; Chest Single View dated 05/14/2016 FINDINGS: Prominent small bowel loops are present in the central abdomen in a relatively unorganized fashion. No pneumoperitoneum seen. The lungs appear grossly clear. No pathologic calcifications seen .
== END 2018-12-08 06:42 | disposition home or self-care (01) ==
LOC: ER 04:49
DX: R14.0 Abdominal distension (gaseous) (principal); F31.9 Bipolar disorder, unspecified; I10 Essential (primary) hypertension; E03.9 Hypothyroidism, unspecified
CPT/HCPCS: 74022; 99283

== ENCOUNTER 2019-02-27 12:02 | Emergency (ER) | payer SELFPAY ==
--- OUTSIDE RECORDS SUMMARY | 2019-02-27 12:05 | XMS REPORT ---
:1970 [facility] Address [address] [place] [address] Dr. Gomez [address] [place] [address] Care Team Providers Name Role Phone UNKNOWN, [...] Facility Department ID 2017-11-02 2017-11-02 Emergency [facility] [id number] 08:33:00 08:33:00 2017-08-05 2017-08-05 Outpatient [facility] [id number] 00:00:00 00:00:00 2017-07-28 2017-07-28 Outpatient [facility] [id number] 00:00:00 00:00:00 2017-06-24 2017-06-24 Outpatient [facility] [id number] 00:00:00 00:00:00 2017-06-22 2017-06-22 Emergency [facility] [id number] 21:37:29 21:37:29 2017-06-22 2017-06-22 Emergency [facility] [id number] 21:06:00 21:06:00 2017-06-22 2017-06-22 Outpatient [facility] [id number] 10:02:31 10:02:31 2017-06-09 2017-06-09 Outpatient [facility] [id number] 00:00:00 00:00:00 2017-06-09 2017-06-09 Outpatient [facility] [id number] 00:00:00 00:00:00 2017-05-08 2017-05-08 Emergency [facility] MED [id number] 01:04:44 01:04:44 2017-05-05 2017-05-05 Emergency [facility] [id number] 08:11:00 08:11:00 2017-04-15 2017-04-15 Emergency E [facility] [id number] 09:53:00 09:53:00 2017-04-14 2017-04-14 Outpatient [facility] [id number] 13:31:02 13:31:02 Results Test Description Test Time Test Comments Text Results Atomic Results Result Comments XR ABDOMEN 2 VIEWS 2017-05-05 09:03:45 XR ABDOMEN 2 VIEWSLOCATION: [id number]: Colstomy ProlapseCOMPARISON: Chest radiograph 04/15/2017, CT of [...] Rh Type (test code=RH) Positive Comprehensive Metabolic [id number] 20:36:00 Test Item Value Reference Range Comments [...] race is not provided, and the patient isAfrican-Thai, multiply by 1.212. If sex is not provided, and thepatient is female, multiply by 0.742. Results for patients <18 years ofage have not been validated by the MDRD study and should be interpretedwith caution.eGFR Result Interpretation:eGFR > or=60 is in the Normal RangeeGFR < 60 may mean kidney diseaseeGFR < 15 may mean kidney failureRanges recommended by the National Kidney Foundation,http://nkdep.nih .gov Alcohol/Ethanol, [id number] 20:36:00 Test Item Value Reference Range Comments Alcohol, Ethyl (test <0.01 g/dL 0.00-0.01 Intoxicated 0.080 g/dL or code=ETOH) more Prothrombin [id number] 20:00:00 Test Item Value Reference Range Comments PT (test code=PT) 10.10 seconds 9.78-13.35 INR (test code=INR) 0.88 Ratio 0.6-1.2 Partial Thromboplastin [id number] 20:00:00 Test Item Value Reference Range Comments aPTT (test code=PTT) 31.50 seconds 24.39-37.25 CBC with [id number] 19:50:00 Test Item Value Reference Range Comments [...] Lymph Abs (test code=ALYMPH) 2.2 K/cumm 0.5-4.6 [place] Abs (test code=AMONO) 0.4 K/cumm 0.0-1.2 Eos Abs (test code=AEOS) 0.17 K/cumm 0.00-0.74 Baso Abs (test code=ABASO) 0.0 K/cumm 0.00-0.21 32323& PELVIS W/O [id number] 17:36:28CT ABDOMEN AND PELVIS WITHOUT CONTRAST.CLINICAL HISTORY: [...]
[2019-02-27 12:45] LABS: Absolute Lymphocytes (CBC) 1.2 K/uL (0.7-4.9); Basophils % 0.6 % (0-1.3); Eosinophils % 0.8 % (0-4.4); Hematocrit 41.9 % (39.6-49.0); Lymphocytes % 19.4 % (15.3-44.8); MPV 8.8 fL (7.6-11.3); Monocytes % 7.5 % (3.3-12.3); RBC Red Blood Cell Count 4.59 M/uL (4.33-5.43)
--- NOTE | 2019-02-27 13:17 | RAD REPORT ---
EXAM DESCRIPTION: RAD - Abdomen 1 View (KUB) - 02/27/2019 12:56 pm CLINICAL HISTORY: Abdominal pain, abdominal distention, history of colostomy COMPARISON: CT since September 2016 FINDINGS: Prominent- is distention of the stomach present. Multiple distended and mildly dilated sma ll bowel loops are present. No free air or pneumatosis. No suspicious calcifications. No significant bony findings IMPRESSION: Prominent air distended stomach with distended and mildly dilated small bowel loops. No free air or pneumatosis.
--- NOTE | 2019-02-27 13:25 | ER ---
Nurse's Notes [facility] Name: Rico Mcneill Age: 49 yrs Sex: Male : 1970 Arrival Date: 02/27/2019 Time: 12:06 Bed 20 Private MD: Diagnosis: Colostomy status;Generalized abdominal pain Presentation: 02/27 12:11 Presenting complaint: EMS states: called out for colostomy stoma that was sticking out em for 2 days, pt was walking from [place] to [place] and someone called EMS, pt reports abd pain and nausea, reports pain 3/10, moist and beefy red stoma noted, no colostomy bag on, holding cup underneath stoma. Transition of care: patient was not received from another setting of care. Onset of symptoms was February 27, 2019. Risk Assessment: Do you want to hurt yourself or someone else? Patient reports no desire to harm self or others. Initial Sepsis Screen: Does the patient meet any 2 criteria? No. Patient's initial sepsis screen is negative. Does the patient have a suspected source of infection? Yes: Skin breakdown/wound. Care prior to arrival: None. 12:11 Method Of Arrival: EMS: [place] [facility] em 12:29 Acuity: OCTAVIO 3 iw Historical: - Allergies: 12:15 NKDA; em - Home Meds: 12:15 None [Active]; em - PMHx: 12:15 Bipolar disorder; bowel obstruction; Hypertension; Hypothyroidism; em - PSHx: 12:15 Colostomy; em - Immunization history:: Adult Immunizations up to date. - Social history:: Smoking status: Patient/guardian denies using tobacco. - Ebola Screening: : Patient negative for fever greater than or equal to 101.5 degrees Fahrenheit, and additional compatible Ebola Virus Disease symptoms Patient denies exposure to infectious person Patient denies travel to an Ebola-affected area in the 21 days before illness onset No symptoms or risks identified at this time. Screenin:17 Abuse screen: Denies threats or abuse. Nutritional screening: No deficits noted. em Tuberculosis screening: No symptoms or risk factors identified. Fall Risk None identified. Assessment: 12:15 General: Appears in no apparent distress. comfortable, Behavior is calm, cooperative. em Pain: Complains of pain in abdomen diffusely Pain currently is 3 out of 10 on a pain scale. Neuro: Level of Consciousness is awake, alert, obeys commands. Cardiovascular: Capillary refill < 3 seconds Patient's skin is warm and dry. Respiratory: Airway is patent Respiratory effort is even, unlabored, Respiratory pattern is regular, symmetrical. GI: Abdomen is flat, Colostomy site is reddened. is not intact. Bowel sounds present X 4 quads. Abd is soft X 4 quads Abdomen is tender to palpation X 4 quads. Reports nausea, colostomy stoma is normal in appearance for patient Patient currently denies diarrhea, vomiting. Derm: Skin is intact, is healthy with good turgor, Skin is pink, warm \T\ dry. Musculoskeletal: Capillary refill < 3 seconds, Range of motion: intact in all extremities. 13:26 Reassessment: Patient appears in no apparent distress at this time. Patient and/or em family updated on plan of care and expected duration. Pain level reassessed. Patient is alert, oriented x 3, equal unlabored respirations, skin warm/dry/pink. Vital Signs: 12:15 BP 112 / 77; Pulse 86; Resp 18; Temp 98.4(O); Pulse Ox 100% on R/A; Weight 77.11 kg; em Height 6 ft. 11 in. (210.82 cm); Pain 3/10; 13:26 BP 104 / 68; Pulse 69; Resp 18; Pulse Ox 99% on R/A; em 12:15 Body Mass Index 17.35 (77.11 kg, 210.82 cm) em ED Course: 12:06 Patient arrived in ED. em 12:09 Lauren Morrell FNP-C [facility]. kb 12:09 Cindy Pastor MD is Attending Physician. kb 12:15 Arm band placed on. em 12:17 Patient has correct armband on for positive identification. Placed in gown. Bed in low em position. Call light in reach. Side rails up X2. Pulse ox on. NIBP on. 12:18 Thomas Goncalves LVN is Primary Nurse. em 12:29 Triage completed. iw 12:30 Initial lab(s) drawn, by me, sent to lab. Inserted saline lock: 20 gauge in right em forearm, using aseptic technique. Blood collected. 12:57 Abdomen 1 View (KUB) XRAY In Process Unspecified. EDMS 13:46 No provider procedures requiring assistance completed. IV discontinued, intact, em bleeding controlled, No redness/swelling at site. Pressure dressing applied. Administered Medications: No medications were administered Outcome: 13:24 Discharge ordered by . tavia 13:46 Discharged to home ambulatory. em 13:46 Condition: good 13:46 Discharge instructions given to patient, Instructed on discharge instructions, follow up and referral plans. Demonstrated understanding of instructions, follow-up care. 13:47 Patient left the ED. em Signatures: Dispatcher [employer] EDMO Lauren Morrell, LANG PATH THERAPIST-C LANG PATH THERAPIST-Thomas Molina, CEMENT MASON HELPER CEMENT MASON HELPER em Ashlie Goetz, RN RN iw Corrections: (The following items were deleted from the chart) 13:16 12:15 GI: Abdomen is flat, Colostomy site is reddened. is not intact. Bowel sounds em present X 4 quads. Abd is soft X 4 quads Abdomen is tender to palpation X 4 quads. Reports nausea, Patient currently denies diarrhea, vomiting, em
--- NOTE | 2019-02-27 13:25 | EDPHYS ---
Physician Documentation [facility] Name: Rico Mcneill Age: 49 yrs Sex: Male : 1970 Arrival Date: 02/27/2019 Time: 12:06 Bed 20 Private MD: ED Physician Cindy Pastor HPI: 02/27 12:23 This 49 yrs old Male presents to ER via EMS with complaints of Abdominal kb Pain, colostomy problem. 12:23 The patient presents with abdominal pain that is diffuse, abdominal distention that is kb diffuse. Onset: The symptoms/episode began/occurred 2 day(s) ago. The symptoms do not radiate. Associated signs and symptoms: none. The symptoms are described as constant. Modifying factors: The symptoms are alleviated by nothing, the symptoms are aggravated by nothing. Severity of pain: At its worst the pain was mild in the emergency department the pain is unchanged. The patient has experienced similar episodes in the past, multiple times. The patient has not recently seen a physician. Historical: - Allergies: 12:15 NKDA; em - Home Meds: 12:15 None [Active]; em - PMHx: 12:15 Bipolar disorder; bowel obstruction; Hypertension; Hypothyroidism; em - PSHx: 12:15 Colostomy; em - Immunization history:: Adult Immunizations up to date. - Social history:: Smoking status: Patient/guardian denies using tobacco. - Ebola Screening: : Patient negative for fever greater than or equal to 101.5 degrees Fahrenheit, and additional compatible Ebola Virus Disease symptoms Patient denies exposure to infectious person Patient denies travel to an Ebola-affected area in the 21 days before illness onset No symptoms or risks identified at this time. ROS: 12:20 Constitutional: Negative for fever, chills, and weight loss, Neck: Negative for injury, kb pain, and swelling, Cardiovascular: Negative for chest pain, palpitations, and edema, Respiratory: Negative for shortness of breath, cough, wheezing, and pleuritic chest pain, Back: Negative for injury and pain, : Negative for injury, bleeding, discharge, and swelling, MS/Extremity: Negative for injury and deformity, Skin: Negative for injury, rash, and discoloration, Neuro: Negative for headache, weakness, numbness, tingling, and seizure. 12:20 Abdomen/GI: Positive for abdominal pain, abdominal distension, Negative for nausea, vomiting, and diarrhea, diarrhea, constipation. Exam: 12:20 Constitutional: This is a well developed, well nourished patient who is awake, alert, kb and in no acute distress. Head/Face: Normocephalic, atraumatic. Chest/axilla: Normal chest wall appearance and motion. Nontender with no deformity. No lesions are appreciated. Cardiovascular: Regular rate and rhythm with a normal S1 and S2. No gallops, murmurs, or rubs. Normal PMI, no JVD. No pulse deficits. Respiratory: Lungs have equal breath sounds bilaterally, clear to auscultation and percussion. No rales, rhonchi or wheezes noted. No increased work of breathing, no retractions or nasal flaring. Back: No spinal tenderness. No costovertebral tenderness. Full range of motion. Skin: Warm, dry with normal turgor. Normal color with no rashes, no lesions, and no evidence of cellulitis. MS/ Extremity: Pulses equal, no cyanosis. Neurovascular intact. Full, normal range of motion. Neuro: Awake and alert, GCS 15, oriented to person, place, time, and situation. Cranial nerves II-XII grossly intact. Motor strength 5/5 in all extremities. Sensory grossly intact. Cerebellar exam normal. Normal gait. 12:20 Abdomen/GI: Inspection: distension, that is mild, in the abdomen diffusely, stoma to RLQ, pt holding paper cup to collect drainage. Appears beefy red and moist. Pt reports it has always stuck out like it is now. Denies any change in stoma, Bowel sounds: hyperactive, Palpation: soft, in all quadrants, mild abdominal tenderness, in all quadrants. Vital Signs: 12:15 BP 112 / 77; Pulse 86; Resp 18; Temp 98.4(O); Pulse Ox 100% on R/A; Weight 77.11 kg; em Height 6 ft. 11 in. (210.82 cm); Pain 3/10; 13:26 BP 104 / 68; Pulse 69; Resp 18; Pulse Ox 99% on R/A; em 12:15 Body Mass Index 17.35 (77.11 kg, 210.82 cm) em MDM: 12:09 Patient medically screened. kb 12:18 Data reviewed: vital signs, nurses notes. Data interpreted: Pulse oximetry: on room air kb is 100 %. Interpretation: normal. 13:10 Counseling: I had a detailed discussion with the patient and/or guardian regarding: the kb historical points, exam findings, and any diagnostic results supporting the discharge/admit diagnosis, lab results, radiology results, the need for outpatient follow up, a family practitioner, a adult ministries director, to return to the emergency department if symptoms worsen or persist or if there are any questions or concerns that arise at home. 02/27 12:18 Order name: Basic Metabolic Panel; Complete Time: 12:58 kb 02/27 12:18 Order name: CBC with Diff; Complete Time: 12:58 kb 02/27 12:18 Order name: IV Saline Lock; Complete Time: 12:45 kb 02/27 12:18 Order name: Labs collected and sent; Complete Time: 12:45 kb 02/27 12:20 Order name: Abdomen 1 View (KUB) XRAY; Complete Time: 13:21 kb Administered Medications: No medications were administered Disposition: 18:59 Co-signature as Attending Physician, Cindy Pastor MD. ma2 Disposition: 02/27/19 13:24 Discharged to Home. Impression: Colostomy status, Generalized abdominal pain. - Condition is Stable. - Discharge Instructions: Abdominal Pain, Adult, [id number]. - Medication Reconciliation Form, Thank You Letter, Antibiotic Education, Prescription Opioid Use form. - Follow up: Emergency Department; When: As needed; Reason: Worsening of condition. Follow up: Private Physician; When: 2 - 3 days; Reason: Recheck today's complaints, Continuance of care, Re-evaluation by your physician. Signatures: Dispatcher [employer] Lauren Juarez, CABLE LACER-C CABLE LACER-Ckb Thomas Goncalves, FILLING LAYER UP FILLING LAYER UP Cindy Linares MD MD ma2 Corrections: (The following items were deleted from the chart) 13:47 13:24 02/27/2019 13:24 Discharged to Home. Impression: Colostomy status; Generalized em abdominal pain. Condition is Stable. Discharge Instructions: Abdominal Pain, Adult, [id number]. Forms are Medication Reconciliation Form, Thank You Letter, Antibiotic Education, Prescription Opioid Use. Follow up: Emergency Department; When: As needed; Reason: Worsening of condition. Follow up: Private Physician; When: 2 - 3 days; Reason: Recheck today's complaints, Continuance of care, Re-evaluation by your physician. kb
[2019-02-27 13:53] VITALS: TEMP 98.4
[2019-02-27 13:55] VITALS: BP 104/68; O2SAT 99
== END 2019-02-27 13:47 | disposition home or self-care (01) ==
LOC: ER 12:02
DX: Z93.3 Colostomy status (principal); R10.9 Unspecified abdominal pain; I10 Essential (primary) hypertension; E03.9 Hypothyroidism, unspecified; F31.9 Bipolar disorder, unspecified
CPT/HCPCS: 36415; 74018; 80048; 85025; 99284

== ENCOUNTER 2019-03-09 19:56 | Emergency (ER) | payer SELFPAY ==
--- OUTSIDE RECORDS SUMMARY | 2019-03-09 20:00 | XMS REPORT ---
:1970 [facility] Address [address] [place] [address] [address] [place] [address] Care Team Providers Name Role Phone UNKNOWN, [...] Facility Department ID 2017-11-02 2017-11-02 Emergency [facility] [id number] 08:33:00 08:33:00 2017-08-05 2017-08-05 Outpatient [facility] [id number] 00:00:00 00:00:00 2017-07-28 2017-07-28 Outpatient [facility] [id number] 00:00:00 00:00:00 2017-06-24 2017-06-24 Outpatient [facility] [id number] 00:00:00 00:00:00 2017-06-22 2017-06-22 Emergency [facility] [id number] 21:37:29 21:37:29 2017-06-22 2017-06-22 Emergency [facility] [id number] 21:06:00 21:06:00 2017-06-22 2017-06-22 Outpatient [facility] [id number] 10:02:31 10:02:31 2017-06-09 2017-06-09 Outpatient [facility] [id number] 00:00:00 00:00:00 2017-06-09 2017-06-09 Outpatient [facility] [id number] 00:00:00 00:00:00 2017-05-08 2017-05-08 Emergency [facility] [id number] 01:04:44 01:04:44 2017-05-05 2017-05-05 Emergency [facility] [id number] 08:11:00 08:11:00 2017-04-15 2017-04-15 Emergency [facility] [id number] 09:53:00 09:53:00 2017-04-14 2017-04-14 Outpatient [facility] [id number] 13:31:02 13:31:02 Results Test Description Test Time Test Comments Text Results Atomic Results Result Comments XR ABDOMEN 2 VIEWS 2017-05-05 09:03:45 XR ABDOMEN 2 VIEWSLOCATION: [id number]: Colstomy ProlapseCOMPARISON: Chest radiograph 04/15/2017, CT of [...] Rh Type (test code=RH) Positive Comprehensive Metabolic [id number] 20:36:00 Test Item Value Reference Range Comments [...] race is not provided, and the patient isAfrican-Ukrainian, multiply by 1.212. If sex is not provided, and thepatient is female, multiply by 0.742. Results for patients <18 years ofage have not been validated by the MDRD study and should be interpretedwith caution.eGFR Result Interpretation:eGFR > or=60 is in the Normal RangeeGFR < 60 may mean kidney diseaseeGFR < 15 may mean kidney failureRanges recommended by the National Kidney Foundation,http://nkdep.nih .gov Alcohol/Ethanol, [id number] 20:36:00 Test Item Value Reference Range Comments Alcohol, Ethyl (test <0.01 g/dL 0.00-0.01 Intoxicated 0.080 g/dL or code=ETOH) more Prothrombin [id number] 20:00:00 Test Item Value Reference Range Comments PT (test code=PT) 10.10 seconds 9.78-13.35 INR (test code=INR) 0.88 Ratio 0.6-1.2 Partial Thromboplastin [id number] 20:00:00 Test Item Value Reference Range Comments aPTT (test code=PTT) 31.50 seconds 24.39-37.25 CBC with [id number] 19:50:00 Test Item Value Reference Range Comments [...] Lymph Abs (test code=ALYMPH) 2.2 K/cumm 0.5-4.6 [place] Abs (test code=AMONO) 0.4 K/cumm 0.0-1.2 Eos Abs (test code=AEOS) 0.17 K/cumm 0.00-0.74 Baso Abs (test code=ABASO) 0.0 K/cumm 0.00-0.21 [id number]& PELVIS W/O [id number] 17:36:28CT ABDOMEN AND PELVIS WITHOUT CONTRAST.CLINICAL HISTORY: [...]
--- NOTE | 2019-03-09 21:19 | ER ---
Nurse's Notes [facility] Name: Rico Mcneill Age: 49 yrs Sex: Male : 1970 Arrival Date: 03/09/2019 Time: 20:00 Bed 12 Private MD: Diagnosis: Need colonoscopy bag clip Presentation: 03/09 20:03 Presenting complaint: Patient states: Patient needs more clips for colostomy bag. aj Transition of care: patient was not received from another setting of care. Onset of symptoms was March 09, 2019. Risk Assessment: Do you want to hurt yourself or someone else? Patient reports no desire to harm self or others. Initial Sepsis Screen: Does the patient meet any 2 criteria? No. Patient's initial sepsis screen is negative. Does the patient have a suspected source of infection? No. Patient's initial sepsis screen is negative. Care prior to arrival: None. 20:03 Method Of Arrival: Ambulatory aj 20:03 Acuity: OCTAVIO 5 aj Triage Assessment: 20:04 General: Appears in no apparent distress. comfortable, Behavior is calm, cooperative, aj appropriate for age. Pain: Denies pain. Neuro: Level of Consciousness is awake, alert, obeys commands, Oriented to person, place, time, situation, Appropriate for age. Respiratory: Airway is patent Respiratory effort is even, unlabored, Respiratory pattern is regular, symmetrical. Derm: Skin is intact, is healthy with good turgor, Skin is pink, warm \T\ dry. normal. Historical: - Allergies: 20:04 NKDA; aj - PMHx: 20:04 Bipolar disorder; bowel obstruction; Hypertension; Hypothyroidism; aj - PSHx: 20:04 Colostomy; aj - Immunization history:: Adult Immunizations up to date. - Social history:: Smoking status: Patient uses tobacco products, chewing tobacco. - Ebola Screening: : Patient negative for fever greater than or equal to 101.5 degrees Fahrenheit, and additional compatible Ebola Virus Disease symptoms Patient denies exposure to infectious person Patient denies travel to an Ebola-affected area in the 21 days before illness onset No symptoms or risks identified at this time. Screenin:10 Abuse screen: Denies threats or abuse. Denies injuries from another. Nutritional aa1 screening: No deficits noted. Tuberculosis screening: No symptoms or risk factors identified. Fall Risk None identified. Assessment: 21:10 General: Appears in no apparent distress. comfortable, Behavior is calm, cooperative, aa1 appropriate for age. Pain: Denies pain. Neuro: Level of Consciousness is awake, alert, obeys commands, Oriented to person, place, time, situation, Gait is steady. Respiratory: Airway is patent Respiratory effort is even, unlabored, Respiratory pattern is regular, symmetrical. GI: No signs and/or symptoms were reported involving the gastrointestinal system. : No signs and/or symptoms were reported regarding the genitourinary system. EENT: No signs and/or symptoms were reported regarding the EENT system. Derm: Skin is intact, is healthy with good turgor, Skin is pink, warm \T\ dry. Musculoskeletal: Circulation, motion, and sensation intact. Capillary refill < 3 seconds. 21:38 Reassessment: Patient appears in no apparent distress at this time. Patient is alert, aa1 oriented x 3, equal unlabored respirations, skin warm/dry/pink. Pt amb to lobby with steady gait. Vital Signs: 20:04 BP 110 / 48; Pulse 86; Resp 16; Temp 98.0; Pulse Ox 97% on R/A; Weight 77.11 kg; Height aj 6 ft. 1 in. (185.42 cm); 21:39 BP 116 / 59; Pulse 81; Resp 16; Temp 98.2; Pulse Ox 96% on R/A; Pain 0/10; aa1 20:04 Body Mass Index 22.43 (77.11 kg, 185.42 cm) ED Course: 20:00 Patient arrived in ED. ag3 20:04 Triage completed. aj 20:04 Arm band placed on left wrist. Patient placed in an exam room. aj 21:03 Chris Ramirez MD is Attending Physician. pkl 21:10 Patient has correct armband on for positive identification. Bed in low position. Call aa1 light in reach. 21:38 Nell Skinner, BRITTNY is Primary Nurse. aa1 21:38 No provider procedures requiring assistance completed. Patient did not have IV access aa1 during this emergency room visit. Administered Medications: No medications were administered Outcome: 21:17 Discharge ordered by MD. pkl 21:38 Discharged to home ambulatory. aa1 21:38 Condition: good 21:38 Discharge instructions given to patient, Instructed on discharge instructions, follow up and referral plans. Demonstrated understanding of instructions, follow-up care. 21:40 Patient left the ED. aa1 Signatures: Nell Skinner RN RN aa1 Drea Galicia RN RN aj Lam, Pin, MD MD pkl Jennifer Khalil ag3
--- NOTE | 2019-03-09 21:19 | EDPHYS ---
Physician Documentation [facility] Name: Rico Mcneill Age: 49 yrs Sex: Male : 1970 Arrival Date: 03/09/2019 Time: 20:00 Bed 12 Private MD: ED Physician Chris Ramirez HPI: 03/09 21:12 This 49 yrs old Male presents to ER via Ambulatory with complaints of pkl COLOSTOMY BAG PROBLEM. 21:12 Patient requesting clip for colostomy bag. Onset: The symptoms/episode began/occurred pkl today. Patient said Medical supply store is out of stock at present. Historical: - Allergies: 20:04 NKDA; aj - PMHx: 20:04 Bipolar disorder; bowel obstruction; Hypertension; Hypothyroidism; aj - PSHx: 20:04 Colostomy; aj - Immunization history:: Adult Immunizations up to date. - Social history:: Smoking status: Patient uses tobacco products, chewing tobacco. - Ebola Screening: : Patient negative for fever greater than or equal to 101.5 degrees Fahrenheit, and additional compatible Ebola Virus Disease symptoms Patient denies exposure to infectious person Patient denies travel to an Ebola-affected area in the 21 days before illness onset No symptoms or risks identified at this time. ROS: 21:12 Eyes: Negative for injury, pain, redness, and discharge, ENT: Negative for injury, pkl pain, and discharge, Neck: Negative for injury, pain, and swelling, Cardiovascular: Negative for chest pain, palpitations, and edema, Respiratory: Negative for shortness of breath, cough, wheezing, and pleuritic chest pain, Abdomen/GI: Negative for abdominal pain, nausea, vomiting, diarrhea, and constipation, Back: Negative for injury and pain, : Negative for injury, bleeding, discharge, and swelling, MS/Extremity: Negative for injury and deformity, Skin: Negative for injury, rash, and discoloration, Neuro: Negative for headache, weakness, numbness, tingling, and seizure. Exam: 21:12 Head/Face: Normocephalic, atraumatic. Eyes: Pupils equal round and reactive to light, pkl extra-ocular motions intact. Lids and lashes normal. Conjunctiva and sclera are non-icteric and not injected. Cornea within normal limits. Periorbital areas with no swelling, redness, or edema. ENT: Nares patent. No nasal discharge, no septal abnormalities noted. Tympanic membranes are normal and external auditory canals are clear. Oropharynx with no redness, swelling, or masses, exudates, or evidence of obstruction, uvula midline. Mucous membranes moist. Neck: Trachea midline, no thyromegaly or masses palpated, and no cervical lymphadenopathy. Supple, full range of motion without nuchal rigidity, or vertebral point tenderness. No Meningismus. Chest/axilla: Normal chest wall appearance and motion. Nontender with no deformity. No lesions are appreciated. Cardiovascular: Regular rate and rhythm with a normal S1 and S2. No gallops, murmurs, or rubs. Normal PMI, no JVD. No pulse deficits. Respiratory: Lungs have equal breath sounds bilaterally, clear to auscultation and percussion. No rales, rhonchi or wheezes noted. No increased work of breathing, no retractions or nasal flaring. Abdomen/GI: Soft, non-tender, with normal bowel sounds. No distension or tympany. No guarding or rebound. No evidence of tenderness throughout. Back: No spinal tenderness. No costovertebral tenderness. Full range of motion. Skin: Warm, dry with normal turgor. Normal color with no rashes, no lesions, and no evidence of cellulitis. MS/ Extremity: Pulses equal, no cyanosis. Neurovascular intact. Full, normal range of motion. Neuro: Awake and alert, GCS 15, oriented to person, place, time, and situation. Cranial nerves II-XII grossly intact. Motor strength 5/5 in all extremities. Sensory grossly intact. Cerebellar exam normal. Normal gait. Vital Signs: 20:04 BP 110 / 48; Pulse 86; Resp 16; Temp 98.0; Pulse Ox 97% on R/A; Weight 77.11 kg; Height aj 6 ft. 1 in. (185.42 cm); 21:39 BP 116 / 59; Pulse 81; Resp 16; Temp 98.2; Pulse Ox 96% on R/A; Pain 0/10; aa1 20:04 Body Mass Index 22.43 (77.11 kg, 185.42 cm) aj MDM: 21:03 Patient medically screened. pkl 21:12 Data reviewed: vital signs, nurses notes. pkl Administered Medications: No medications were administered Disposition: 03/09/19 21:17 Discharged to Home. Impression: Need colonoscopy bag clip. - Condition is Stable. - Medication Reconciliation Form, Thank You Letter, Antibiotic Education, Prescription Opioid Use form. - Follow up: Private Physician; When: 2 - 3 days; Reason: Re-evaluation by your physician. - Problem is new. - Symptoms have improved. Signatures: Nell Skinner RN RN aa1 Drea Galicia RN RN aj Lam, Pin, MD MD pkl Corrections: (The following items were deleted from the chart) 21:40 21:17 03/09/2019 21:17 Discharged to Home. Impression: Need colonoscopy bag clip. aa1 Condition is Stable. Forms are Medication Reconciliation Form, Thank You Letter, Antibiotic Education, Prescription Opioid Use. Follow up: Private Physician; When: 2 - 3 days; Reason: Re-evaluation by your physician. Problem is new. Symptoms have improved. pkl
[2019-03-09 21:47] VITALS: BP 116/59; TEMP 98.2; O2SAT 96
== END 2019-03-09 21:40 | disposition home or self-care (01) ==
LOC: ER 19:56
DX: Z43.3 Encounter for attention to colostomy (principal); F31.9 Bipolar disorder, unspecified; I10 Essential (primary) hypertension; E03.9 Hypothyroidism, unspecified
CPT/HCPCS: 99281

== ENCOUNTER 2019-03-12 19:37 | Emergency (ER) | payer SELFPAY ==
--- OUTSIDE RECORDS SUMMARY | 2019-03-12 19:40 | XMS REPORT ---
:1970 [facility] Address [address] [place] [address] [address] [place] [address] Care Team Providers Name Role Phone UNKNOWN, [...] Facility Department ID 2017-11-02 2017-11-02 Emergency E [facility] MED [id number] 08:33:00 08:33:00 2017-08-05 2017-08-05 Outpatient [facility] [id number] 00:00:00 00:00:00 2017-07-28 2017-07-28 Outpatient [facility] [id number] 00:00:00 00:00:00 2017-06-24 2017-06-24 Outpatient [facility] [id number] 00:00:00 00:00:00 2017-06-22 2017-06-22 Emergency [facility] [id number] 21:37:29 21:37:29 2017-06-22 2017-06-22 Emergency [facility] [id number] 21:06:00 21:06:00 2017-06-22 2017-06-22 Outpatient [facility] [id number] 10:02:31 10:02:31 2017-06-09 2017-06-09 Outpatient [facility] [id number] 00:00:00 00:00:00 2017-06-09 2017-06-09 Outpatient [facility] [id number] 00:00:00 00:00:00 2017-05-08 2017-05-08 Emergency [facility] MED [id number] 01:04:44 01:04:44 2017-05-05 2017-05-05 Emergency E [facility] MED [id number] 08:11:00 08:11:00 2017-04-15 2017-04-15 Emergency E [facility] MED [id number] 09:53:00 09:53:00 2017-04-14 2017-04-14 Outpatient [facility] [id number] 13:31:02 13:31:02 Results Test Description Test Time Test Comments Text Results Atomic Results Result Comments XR ABDOMEN 2 VIEWS 2017-05-05 09:03:45 XR ABDOMEN 2 VIEWSLOCATION: [id number]: Colstomy ProlapseCOMPARISON: Chest radiograph 04/15/2017, CT of [...] Rh Type (test code=RH) Positive Comprehensive Metabolic [id number] 20:36:00 Test Item Value Reference Range Comments [...] race is not provided, and the patient isAfrican-Sri Lankan, multiply by 1.212. If sex is not provided, and thepatient is female, multiply by 0.742. Results for patients <18 years ofage have not been validated by the MDRD study and should be interpretedwith caution.eGFR Result Interpretation:eGFR > or=60 is in the Normal RangeeGFR < 60 may mean kidney diseaseeGFR < 15 may mean kidney failureRanges recommended by the National Kidney Foundation,http://nkdep.nih .gov Alcohol/Ethanol, [id number] 20:36:00 Test Item Value Reference Range Comments Alcohol, Ethyl (test <0.01 g/dL 0.00-0.01 Intoxicated 0.080 g/dL or code=ETOH) more Prothrombin [id number] 20:00:00 Test Item Value Reference Range Comments PT (test code=PT) 10.10 seconds 9.78-13.35 INR (test code=INR) 0.88 Ratio 0.6-1.2 Partial Thromboplastin [id number] 20:00:00 Test Item Value Reference Range Comments aPTT (test code=PTT) 31.50 seconds 24.39-37.25 CBC with [id number] 19:50:00 Test Item Value Reference Range Comments [...] Lymph Abs (test code=ALYMPH) 2.2 K/cumm 0.5-4.6 [place] Abs (test code=AMONO) 0.4 K/cumm 0.0-1.2 Eos Abs (test code=AEOS) 0.17 K/cumm 0.00-0.74 Baso Abs (test code=ABASO) 0.0 K/cumm 0.00-0.21 [id number]& PELVIS W/O [id number] 17:36:28CT ABDOMEN AND PELVIS WITHOUT CONTRAST.CLINICAL HISTORY: [...]
[2019-03-12 20:07] LABS: Absolute Lymphocytes (CBC) 1.9 K/uL (0.7-4.9); Basophils % 0.7 % (0-1.3); Eosinophils % 1.1 % (0-4.4); Lymphocytes % 26.1 % (15.3-44.8); MPV 9.1 fL (7.6-11.3); Monocytes % 8.4 % (3.3-12.3); RBC Red Blood Cell Count 4.88 M/uL (4.33-5.43)
[2019-03-12] MEDS ORDERED: ONDANSETRON 4 MG/2 ML VIAL ONE (20:19)
[2019-03-12] MEDS ORDERED: NA CHLORIDE 0.9% 1,000 ML ONE ×2 (20:19→21:08)
[2019-03-12 20:25] LABS: ALT/SGPT 29 U/L (12-78); AST/SGOT 18 U/L (15-37); Albumin 4.2 g/dL (3.4-5.0); Alkaline Phosphatase 77 U/L (45-117); BUN Blood Urea Nitrogen 43 mg/dL (7-18); Bicarbonate 21 mmol/L (21-32); Bilirubin Direct 0.1 mg/dL (0-0.2); Bilirubin Total 0.6 mg/dL (0.2-1.0); Glucose Level 109 mg/dL (74-106); Magnesium 2.5 mg/dL (1.8-2.4); NT PRO-BNP 39 pg/mL (<125); Potassium 4.2 mmol/L (3.5-5.1); Protein, Total 7.2 g/dL (6.4-8.2); Sodium Level 137 mmol/L (136-145); Troponin (Emerg Dept Use Only) < 0.02 ng/mL (0.0-0.045)
--- NOTE | 2019-03-12 20:47 | RAD REPORT ---
EXAM DESCRIPTION: Lucas Single View03/12/2019 8:11 pm CLINICAL HISTORY: Chest pain COMPARISON: November 2018 FINDINGS: The lungs appear clear of acute infiltrate. The heart is normal size Mild dilatation of small bowel in the upper abdomen IMPRESSION: Mild dilatation of small bowel in the upper abdomen. If clinically indicated further jareth luation with complete abdominal plain film series may be helpful
[2019-03-12 22:58] LABS: BUN Blood Urea Nitrogen 40 mg/dL (7-18); Bicarbonate 20 mmol/L (21-32); Glucose Level 107 mg/dL (74-106); Potassium 3.4 mmol/L (3.5-5.1); Sodium Level 140 mmol/L (136-145); Troponin (Emerg Dept Use Only) < 0.02 ng/mL (0.0-0.045)
--- NOTE | 2019-03-13 00:42 | ER ---
Nurse's Notes [facility] Name: Rico Mcneill Age: 49 yrs Sex: Male : 1970 Arrival Date: 03/12/2019 Time: 19:38 Bed 19 Private MD: Diagnosis: Heat exhaustion, unspecified;Heat fatigue, transient Presentation: 03/12 19:41 Presenting complaint: Patient states: "I've been feeling like I'm having a heat stoke aj and I've been throwing up I feel really weak and sluggish." Patient also reports palpitations. Patient reports chest pain. Transition of care: patient was not received from another setting of care. Onset of symptoms was March 12, 2019. Risk Assessment: Do you want to hurt yourself or someone else? Patient reports no desire to harm self or others. Initial Sepsis Screen: Does the patient meet any 2 criteria? No. Patient's initial sepsis screen is negative. Does the patient have a suspected source of infection? No. Patient's initial sepsis screen is negative. Care prior to arrival: None. 19:41 Method Of Arrival: Ambulatory [facility] 19:41 Acuity: OCTAVIO 3 aj1 Triage Assessment: 19:43 General: Appears in no apparent distress. comfortable, Behavior is calm, cooperative, aj1 appropriate for age. Pain: Complains of pain in chest Pain currently is 6 out of 10 on a pain scale. Neuro: Level of Consciousness is awake, alert, confused. Cardiovascular: Reports chest pain, Patient's skin is warm and dry. Respiratory: Airway is patent Respiratory effort is Respiratory pattern is regular, symmetrical. Historical: - Allergies: 19:43 NKDA; aj1 - Home Meds: 19:43 None [Active]; aj1 - PMHx: 19:43 bowel obstruction; Hypertension; Hypothyroidism; colostomy; aj1 - Immunization history:: Flu vaccine is not up to date. - Social history:: Smoking status: Patient uses tobacco products, chewing tobacco. - Ebola Screening: : Patient denies travel to an Ebola-affected area in the 21 days before illness onset. Screenin:17 Abuse screen: Denies threats or abuse. Denies injuries from another. Nutritional ch screening: No deficits noted. Tuberculosis screening: No symptoms or risk factors identified. Fall Risk None identified. Assessment: 19:55 General: Appears in no apparent distress. comfortable, Behavior is calm, cooperative, ch appropriate for age, Smells of body odor. Pain: Complains of pain in chest Pain currently is 4 out of 10 on a pain scale. Pain began gradually. Neuro: No deficits noted. Cardiovascular: Reports chest pain, chest tightness Heart tones S1 S2 present Capillary refill < 3 seconds in bilateral fingers Clubbing of nail beds is absent. Respiratory: Airway is patent Respiratory effort is even, unlabored, Breath sounds are clear bilaterally. GI: No signs and/or symptoms were reported involving the gastrointestinal system. Derm: Skin is dry, Skin is pt skin is very abad, leathery Skin temperature is warm. Musculoskeletal: Circulation, motion, and sensation intact. 20:43 Reassessment: Patient appears in no apparent distress at this time. Patient and/or ch family updated on plan of care and expected duration. Pain level reassessed. Patient is alert, oriented x 3, equal unlabored respirations, skin warm/dry/pink. Patient states feeling better. Patient states symptoms have improved. 20:57 Reassessment: Patient appears in no apparent distress at this time. pt states he feels ch better, pt is drinking water and eating crackers in room. 22:01 Reassessment: Patient appears in no apparent distress at this time. Patient and/or ch family updated on plan of care and expected duration. Pain level reassessed. Patient is alert, oriented x 3, equal unlabored respirations, skin warm/dry/pink. 22:33 Reassessment: Patient appears in no apparent distress at this time. Patient and/or ch family updated on plan of care and expected duration. Pain level reassessed. Patient is alert, oriented x 3, equal unlabored respirations, skin warm/dry/pink. awaiting repeat blood results. 03/13 00:29 Reassessment: Patient appears in no apparent distress at this time. pt asleep in room. ch no s/s of distress. Vital Signs: 03/12 19:43 BP 103 / 65; Pulse 94; Resp 18; Temp 98.4; Pulse Ox 100% on R/A; Weight 77.11 kg (R); aj1 Height 6 ft. 1 in. (185.42 cm) (R); Pain 6/10; 20:17 BP 115 / 71; Pulse 86; Resp 14; Pulse Ox 99% on R/A; Pain 4/10; ch 20:43 BP 102 / 54; Pulse 80; Resp 18; Temp 98.9(O); Pulse Ox 99% on R/A; Pain 2/10; ch 22:01 BP 97 / 56; Pulse 91; Resp 16; Temp 98.8; Pulse Ox 99% on R/A; Pain 0/10; ch 03/13 00:00 BP 100 / 54; Pulse 76; Resp 15; Temp 98.8; Pulse Ox 100% on R/A; Pain 0/10; ch 00:30 BP 98 / 72; Pulse 80; Resp 14; Temp 98.8; Pulse Ox 99% on R/A; Pain 0/10; ch 03/12 19:43 Body Mass Index 22.43 (77.11 kg, 185.42 cm) aj1 00:00 pt is asleep. Vitals: 03/12 20:43 Cardiac Rhythm Assessment Regular Sinus rhythm. ED Course: 19:38 Patient arrived in ED. am2 19:42 Triage completed. aj1 19:43 Arm band placed on Patient placed in an exam room. aj1 19:47 Hector Garcia MD is Attending Physician. tw4 19:48 No apparent distress. Resting quietly. ch 19:48 EKG done, by ED staff, reviewed by Hector Garcia MD. 19:50 No provider procedures requiring assistance completed. Inserted saline lock: 18 gauge ch in right forearm, using aseptic technique. Blood collected. 20:02 Whit Martin, RN is Primary Nurse. 20:03 Patient has correct armband on for positive identification. Bed in low position. Call light in reach. Side rails up X 1. Pulse ox on. NIBP on. Warm blanket given. Pillow given. PO fluids given. 20:13 XRAY Chest (1 view) In Process Unspecified. EDMS 20:43 manager monitoring on. 22:10 Repeat lab(s) drawn. by mi, sent to lab. 03/13 00:20 IV discontinued, intact, bleeding controlled, No redness/swelling at site. Pressure dressing applied. Administered Medications: 03/12 20:03 Drug: NS 0.9% 1000 ml Route: IV; Rate: 1 bolus; Site: right forearm; 20:44 Follow up: IV Status: Completed infusion; IV Intake: 1000ml 20:05 Drug: Zofran 4 mg Route: IVP; Site: right forearm; 20:44 Follow up: Response: No adverse reaction; Marked relief of symptoms 20:51 Drug: NS 0.9% 1000 ml Route: IV; Rate: 1 bolus; Site: right forearm; 22:34 Follow up: IV Status: Completed infusion; IV Intake: 1000ml ch Intake: 20:44 IV: 1000ml; Total: 1000ml. ch 22:34 IV: 1000ml; Total: 2000ml. Outcome: 03/13 00:30 Discharge ordered by . tw4 00:32 Discharged to home ambulatory. 00:32 Condition: stable 00:32 Discharge instructions given to patient, Instructed on discharge instructions, follow up and referral plans. Demonstrated understanding of instructions, follow-up care. 00:38 Patient left the ED. Signatures: Dispatcher [employer] Whit Julien RN RN ch Johnson, Angela, RN RN radha1 Drea Fisher Terrence, MD MD tw4
--- NOTE | 2019-03-13 00:43 | EDPHYS ---
Physician Documentation [facility] Name: Rico Mcneill Age: 49 yrs Sex: Male : 1970 Arrival Date: 03/12/2019 Time: 19:38 Bed 19 Private MD: ED Physician Hector Garcia HPI: 03/13 04:02 This 49 yrs old Male presents to ER via Ambulatory with complaints of General tw4 Weakness, dehydration, Feels hot. 04:02 The patient presents with feeling faint, generalized weakness. Onset: The tw4 symptoms/episode began/occurred today. Context: occurred at home. Modifying factors: The symptoms are alleviated by nothing, the symptoms are aggravated by nothing. Associated signs and symptoms: Pertinent positives: chest pain. Severity of symptoms: At their worst the symptoms were mild in the emergency department the symptoms are unchanged. Patient's baseline: Neuro: alert and fully oriented. The patient has not experienced similar symptoms in the past. The patient has not recently seen a physician. Patient states that he was in the sun and became "overheated". Historical: - Allergies: 03/12 19:43 NKDA; aj1 - Home Meds: 19:43 None [Active]; aj1 - PMHx: 19:43 bowel obstruction; Hypertension; Hypothyroidism; colostomy; aj1 - Immunization history:: Flu vaccine is not up to date. - Social history:: Smoking status: Patient uses tobacco products, chewing tobacco. - Ebola Screening: : Patient denies travel to an Ebola-affected area in the 21 days before illness onset. ROS: 03/13 04:02 Constitutional: Negative for fever, chills, and weight loss, Eyes: Negative for injury, tw4 pain, redness, and discharge, Respiratory: Negative for shortness of breath, cough, wheezing, and pleuritic chest pain, Abdomen/GI: Negative for abdominal pain, nausea, vomiting, diarrhea, and constipation, Back: Negative for injury and pain. MS/Extremity: Negative for injury and deformity, Skin: Negative for injury, rash, and discoloration, Neuro: Negative for headache, weakness, numbness, tingling, and seizure. Cardiovascular: Positive for chest pain, Negative for edema, orthopnea, palpitations, paroxysmal nocturnal dyspnea. Exam: 04:02 Constitutional: This is a well developed, well nourished patient who is awake, alert, tw4 and in no acute distress. Head/Face: Normocephalic, atraumatic. Chest/axilla: Normal chest wall appearance and motion. Nontender with no deformity. No lesions are appreciated. Cardiovascular: Regular rate and rhythm with a normal S1 and S2. No gallops, murmurs, or rubs. Normal PMI, no JVD. No pulse deficits. Respiratory: Lungs have equal breath sounds bilaterally, clear to auscultation and percussion. No rales, rhonchi or wheezes noted. No increased work of breathing, no retractions or nasal flaring. 04:02 Back: No spinal tenderness. No costovertebral tenderness. Full range of motion. MS/ Extremity: Pulses equal, no cyanosis. Neurovascular intact. Full, normal range of motion. Neuro: Awake and alert, GCS 15, oriented to person, place, time, and situation. Cranial nerves II-XII grossly intact. Motor strength 5/5 in all extremities. Sensory grossly intact. Cerebellar exam normal. Normal gait. 04:02 Abdomen/GI: Inspection: colostomy, Bowel sounds: normal, Palpation: abdomen is soft and non-tender, soft. Vital Signs: 03/12 19:43 BP 103 / 65; Pulse 94; Resp 18; Temp 98.4; Pulse Ox 100% on R/A; Weight 77.11 kg (R); aj1 Height 6 ft. 1 in. (185.42 cm) (R); Pain 6/10; 20:17 BP 115 / 71; Pulse 86; Resp 14; Pulse Ox 99% on R/A; Pain 4/10; ch 20:43 BP 102 / 54; Pulse 80; Resp 18; Temp 98.9(O); Pulse Ox 99% on R/A; Pain 2/10; ch 22:01 BP 97 / 56; Pulse 91; Resp 16; Temp 98.8; Pulse Ox 99% on R/A; Pain 0/10; ch 03/13 00:00 BP 100 / 54; Pulse 76; Resp 15; Temp 98.8; Pulse Ox 100% on R/A; Pain 0/10; ch 00:30 BP 98 / 72; Pulse 80; Resp 14; Temp 98.8; Pulse Ox 99% on R/A; Pain 0/10; ch 03/12 19:43 Body Mass Index 22.43 (77.11 kg, 185.42 cm) aj1 00:00 pt is asleep. MDM: 03/12 19:47 Patient medically screened. 03/13 04:02 Differential diagnosis: cardiac arrhythmia, CVA, generalized weakness, TIA. Data tw4 reviewed: vital signs, nurses notes. Data interpreted: pvc monitor: Pulse oximetry: Interpretation: normal. Counseling: I had a detailed discussion with the patient and/or guardian regarding: the historical points, exam findings, and any diagnostic results supporting the discharge/admit diagnosis, lab results, radiology results. Special discussion: I discussed with the patient/guardian in detail that at this point there is no indication for admission to the hospital. It is understood, however, that if the symptoms persist or worsen the patient needs to return immediately for re-evaluation. 03/12 19:48 Order name: Basic Metabolic Panel [facility] 03/12 19:48 Order name: CBC with Diff [facility] 03/12 19:48 Order name: LFT's [facility] 03/12 19:48 Order name: Magnesium tw 03/12 19:48 Order name: NT PRO-BNP; Complete Time: 20:48 [facility] 03/12 20:48 Interpretation: Within normal limits: NT PRO-BNP 39. tw 03/12 19:48 Order name: PT-INR; Complete Time: 20:48 [facility] 03/12 20:48 Interpretation: Within normal limits: PT 11.8. [facility] 03/12 19:48 Order name: Troponin (emerg Dept Use Only); Complete Time: 20:48 [facility] 03/12 20:49 Interpretation: Within normal limits: TROPED < 0.02. tw 03/12 19:48 Order name: XRAY Chest (1 view); Complete Time: 20:49 [facility] 03/12 20:49 Interpretation: No acute disease. [facility] 03/12 19:50 Order name: Basic Metabolic Panel; Complete Time: 20:48 EDMS 03/12 20:48 Interpretation: Normal except: CRE 2.18; BUN 43; GLUC 109; GFR 32. [facility] 03/12 19:50 Order name: CBC with Automated Diff; Complete Time: 20:48 EDMS 03/12 20:48 Interpretation: Normal except: WBC 7.3. [facility] 03/12 19:50 Order name: Liver (Hepatic) Function; Complete Time: 20:49 EDMS 03/12 20:49 Interpretation: Within normal limits. 03/12 22:05 Order name: Basic Metabolic Panel; Complete Time: 00:28 4 03/13 00:28 Interpretation: Normal except: K 3.4; CL 109; CO2 20; GLUC 107; BUN 40; CRE 1.68; GFR tw4 44. 03/12 22:05 Order name: Troponin (emerg Dept Use Only); Complete Time: 00:29 tw4 03/13 00:29 Interpretation: Within normal limits: TROPED < 0.02. 4 03/12 19:48 Order name: EKG; Complete Time: 19:50 03/12 19:48 Order name: Cardiac monitoring; Complete Time: 20:05 4 03/12 19:48 Order name: EKG - Nurse/Tech; Complete Time: 20:03 4 03/12 19:48 Order name: IV Saline Lock; Complete Time: 20:03 tw4 03/12 19:48 Order name: Labs collected and sent; Complete Time: 20:03 4 03/12 19:48 Order name: O2 Per Protocol; Complete Time: 20:03 03/12 19:48 Order name: O2 Sat Monitoring; Complete Time: 20:03 Administered Medications: 03/12 20:03 Drug: NS 0.9% 1000 ml Route: IV; Rate: 1 bolus; Site: right forearm; ch 20:44 Follow up: IV Status: Completed infusion; IV Intake: 1000ml ch 20:05 Drug: Zofran 4 mg Route: IVP; Site: right forearm; ch 20:44 Follow up: Response: No adverse reaction; Marked relief of symptoms ch 20:51 Drug: NS 0.9% 1000 ml Route: IV; Rate: 1 bolus; Site: right forearm; ch 22:34 Follow up: IV Status: Completed infusion; IV Intake: 1000ml ch Disposition: 03/13/19 00:30 Discharged to Home. Impression: Heat exhaustion, unspecified, Heat fatigue, transient. - Condition is Stable. - Discharge Instructions: Nonspecific Chest Pain, Fatigue, Heat Exhaustion Information, Dehydration, Adult, [id number], Chest Pain Observation. - Medication Reconciliation Form, Thank You Letter, Antibiotic Education, Prescription Opioid Use form. - Follow up: Private Physician; When: Upon discharge from the Emergency Department; Reason: If symptoms return, Recheck today's complaints, Continuance of care. - Problem is new. - Symptoms have improved. Signatures: Dispatcher [employer] EDWhit Fay, RN RN Kimmy Brannon RN RN aj1 Hector Garcia MD MD tw4 Corrections: (The following items were deleted from the chart) 03/13 00:38 00:30 03/13/2019 00:30 Discharged to Home. Impression: Heat exhaustion, unspecified; ch Heat fatigue, transient. Condition is Stable. Forms are Medication Reconciliation Form, Thank You Letter, Antibiotic Education, Prescription Opioid Use. Follow up: Private Physician; When: Upon discharge from the Emergency Department; Reason: If symptoms return, Recheck today's complaints, Continuance of care. Problem is new. Symptoms have improved. tw4
[2019-03-13 02:17] VITALS: TEMP 98.8
[2019-03-13 02:32] VITALS: BP 122/78; O2SAT 98
--- NOTE | 2019-03-13 09:12 | EKG ---
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
== END 2019-03-13 00:38 | disposition home or self-care (01) ==
LOC: ER 19:37
DX: T67.5XXA Heat exhaustion, unspecified, initial encounter (principal); T67.6XXA Heat fatigue, transient, initial encounter; I10 Essential (primary) hypertension; E03.9 Hypothyroidism, unspecified; Z72.0 Tobacco use
CPT/HCPCS: 36415; 71045; 80048; 80076; 83735; 83880; 84484; 85025; 85610; 93005; 96361; 96374; 99284; J2405; J7030

== ENCOUNTER 2019-03-17 05:26 | Emergency (ER) | payer SELFPAY ==
--- OUTSIDE RECORDS SUMMARY | 2019-03-17 05:28 | XMS REPORT ---
:1970 Author Organization [facility] Address [address] [place] [address] [address] [place] [address] Care Team Providers Name Role Phone UNKNOWN, [...] Facility Department ID 2017-11-02 2017-11-02 Emergency E [facility] [id number] 08:33:00 08:33:00 2017-08-05 2017-08-05 Outpatient [facility] [id number] 00:00:00 00:00:00 2017-07-28 2017-07-28 Outpatient [facility] [id number] 00:00:00 00:00:00 2017-06-24 2017-06-24 Outpatient [facility] [id number] 00:00:00 00:00:00 2017-06-22 2017-06-22 Emergency [facility] [id number] 21:37:29 21:37:29 2017-06-22 2017-06-22 Emergency [facility] [id number] 21:06:00 21:06:00 2017-06-22 2017-06-22 Outpatient [facility] [id number] 10:02:31 10:02:31 2017-06-09 2017-06-09 Outpatient [facility] [id number] 00:00:00 00:00:00 2017-06-09 2017-06-09 Outpatient [facility] [id number] 00:00:00 00:00:00 2017-05-08 2017-05-08 Emergency [facility] [id number] 01:04:44 01:04:44 2017-05-05 2017-05-05 Emergency E [facility] [id number] 08:11:00 08:11:00 2017-04-15 2017-04-15 Emergency E [facility] [id number] 09:53:00 09:53:00 2017-04-14 2017-04-14 Outpatient [facility] [id number] 13:31:02 13:31:02 Results Test Description Test Time Test Comments Text Results Atomic Results Result Comments XR ABDOMEN 2 VIEWS 2017-05-05 09:03:45 XR ABDOMEN 2 VIEWSLOCATION: [id number]: Colstomy ProlapseCOMPARISON: Chest radiograph 04/15/2017, CT of [...] Rh Type (test code=RH) Positive Comprehensive Metabolic [id number] 20:36:00 Test Item Value Reference Range Comments [...] race is not provided, and the patient isAfrican-Belarusian, multiply by 1.212. If sex is not provided, and thepatient is female, multiply by 0.742. Results for patients <18 years ofage have not been validated by the MDRD study and should be interpretedwith caution.eGFR Result Interpretation:eGFR > or=60 is in the Normal RangeeGFR < 60 may mean kidney diseaseeGFR < 15 may mean kidney failureRanges recommended by the National Kidney Foundation,http://nkdep.nih .gov Alcohol/Ethanol, [id number] 20:36:00 Test Item Value Reference Range Comments Alcohol, Ethyl (test <0.01 g/dL 0.00-0.01 Intoxicated 0.080 g/dL or code=ETOH) more Prothrombin [id number] 20:00:00 Test Item Value Reference Range Comments PT (test code=PT) 10.10 seconds 9.78-13.35 INR (test code=INR) 0.88 Ratio 0.6-1.2 Partial Thromboplastin [id number] 20:00:00 Test Item Value Reference Range Comments aPTT (test code=PTT) 31.50 seconds 24.39-37.25 CBC with [id number] 19:50:00 Test Item Value Reference Range Comments [...] Lymph Abs (test code=ALYMPH) 2.2 K/cumm 0.5-4.6 Lipscomb Abs (test code=AMONO) 0.4 K/cumm 0.0-1.2 Eos Abs (test code=AEOS) 0.17 K/cumm 0.00-0.74 Baso Abs (test code=ABASO) 0.0 K/cumm 0.00-0.21 72023& PELVIS W/O [id number] 17:36:28CT ABDOMEN AND PELVIS WITHOUT CONTRAST.CLINICAL HISTORY: [...]
[2019-03-17 06:10] LABS: Absolute Lymphocytes (CBC) 2.8 K/uL (0.7-4.9); Basophils % 0.8 % (0-1.3); Hematocrit 42.6 % (39.6-49.0); Lymphocytes % 44.1 % (15.3-44.8); MPV 8.3 fL (7.6-11.3); RBC Red Blood Cell Count 4.67 M/uL (4.33-5.43)
[2019-03-17 06:14] LABS: Protime INR 0.94
[2019-03-17] MEDS ORDERED: MORPHINE 4 MG/ML SYR ONE ×2 (06:20→06:49)
[2019-03-17] MEDS ORDERED: METRONIDAZOLE 500mg IVPB 500 MG/100 ML BAG IV ONE (06:21)
[2019-03-17] MEDS ORDERED: NA CHLORIDE 0.9% 2,000 ML ONE (06:21)
[2019-03-17] MEDS ORDERED: FAMOTIDINE 20 MG/2 ML VIAL IV ONE (06:21)
[2019-03-17] MEDS ORDERED: Levofloxacin500mg IV 500 MG/100 ML BAG IV ONE (06:21)
[2019-03-17] MEDS ORDERED: ONDANSETRON 4 MG/2 ML VIAL ONE ×2 (06:22→06:50)
[2019-03-17 06:28] LABS: ALT/SGPT 26 U/L (12-78); AST/SGOT 17 U/L (15-37); Alkaline Phosphatase 61 U/L (45-117); BUN Blood Urea Nitrogen 20 mg/dL (7-18); Bicarbonate 24 mmol/L (21-32); Bilirubin Direct 0.1 mg/dL (0-0.2); Bilirubin Total 0.6 mg/dL (0.2-1.0); Glucose Level 98 mg/dL (74-106); Lipase 181 U/L (73-393); Magnesium 2.4 mg/dL (1.8-2.4); NT PRO-BNP 66 pg/mL (<125); Potassium 3.9 mmol/L (3.5-5.1); Sodium Level 142 mmol/L (136-145); Troponin (Emerg Dept Use Only) < 0.02 ng/mL (0.0-0.045)
--- NOTE | 2019-03-17 07:29 | ER ---
Nurse's Notes [facility] Name: Rico Mcneill Age: 49 yrs Sex: Male : 1970 Arrival Date: 03/17/2019 Time: 05:30 Bed 14 Private MD: Diagnosis: Colostomy complications-prolapsed bowel, ischemic;Abdominal tenderness;Gastrointestinal hemorrhage, unspecified-colostomy Presentation: 03/17 05:44 Presenting complaint: Patient states: My intestines have popped through my colostomy. jb4 Transition of care: patient was not received from another setting of care. Onset of symptoms was March 16, 2019. Risk Assessment: Do you want to hurt yourself or someone else? Patient reports no desire to harm self or others. Initial Sepsis Screen: Does the patient meet any 2 criteria? No. Patient's initial sepsis screen is negative. Does the patient have a suspected source of infection? Yes: Acute abdominal pain. Care prior to arrival: None. 05:44 Method Of Arrival: Wheelchair jb 05:44 Acuity: OCTAVIO 2 jb4 Historical: - Allergies: 05:44 NKDA; jb4 - Home Meds: 05:44 None [Active]; jb4 - PMHx: 05:44 Bipolar disorder; bowel obstruction; colostomy; Hypertension; Hypothyroidism; jb4 - PSHx: 05:44 Colostomy; jb4 - Immunization history:: Adult Immunizations up to date. - Social history:: Smoking status: Patient/guardian denies using tobacco, Patient uses alcohol, occasionally. - Family history:: not pertinent. - Ebola Screening: : No symptoms or risks identified at this time. Screenin:44 Abuse screen: Denies threats or abuse. Nutritional screening: No deficits noted. jb4 Tuberculosis screening: No symptoms or risk factors identified. Fall Risk IV access (20 points). Gait- Impaired (20 pts.). Total Stanley Fall Scale indicates Low Risk Score (25-44 pts). Fall prevention measures have been instituted. Side Rails Up X 2 Placed close to Nursing Station Frequent Obs/Assesments occuring As available Patient and Family Educated on Fall Prevention Program and strategies. Assessment: 05:44 General: Appears distressed, uncomfortable, Behavior is cooperative, agitated, anxious. jb4 Pain: Complains of pain in right lower quadrant Pain does not radiate. Pain currently is 10 out of 10 on a pain scale. Neuro: Level of Consciousness is awake, alert, obeys commands, Oriented to person, place, time, situation. Cardiovascular: Skin warm and clammy.. Respiratory: Airway is patent Respiratory effort is even, unlabored, Respiratory pattern is regular, symmetrical. GI: Pt's large intestines are protruding through colostomy site. Tissue is dark red/ purple. Reports lower abdominal pain, nausea. : No signs and/or symptoms were reported regarding the genitourinary system. EENT: No signs and/or symptoms were reported regarding the EENT system. Derm: Skin is intact, Skin is clammy, Skin is normal, Skin temperature is warm. Musculoskeletal: Circulation, motion, and sensation intact. Range of motion: intact in all extremities. 06:45 Reassessment: Patient appears in no apparent distress at this time. No changes from jb4 previously documented assessment. Patient and/or family updated on plan of care and expected duration. Pain level reassessed. 07:14 General: Appears in no apparent distress. uncomfortable, Behavior is cooperative, hj anxious. Pain: Complains of pain in abdomen and right lower quadrant Pain currently is 10 out of 10 on a pain scale. Neuro: Level of Consciousness is awake, alert, obeys commands, Oriented to person, place, time, situation, Appropriate for age. Cardiovascular: Capillary refill < 3 seconds. Respiratory: Airway is patent Respiratory effort is even, unlabored, Respiratory pattern is regular, symmetrical. GI: Abdomen is distended, Colostomy site Ostomy appliance is intact. intestinal contents sticking out into the colostomy bag;. : No signs and/or symptoms were reported regarding the genitourinary system. EENT: No signs and/or symptoms were reported regarding the EENT system. Derm: Skin is intact, Skin is clammy, Skin is normal, Skin temperature is warm. Musculoskeletal: No signs and/or symptoms reported regarding the musculoskeletal system. 07:25 Reassessment: per pt colostomy in place for 2 years now;. hj 07:35 Reassessment: NS with kerlix at bedside for wet dressing application to intestinal hj content; awaiting for provider to be assisted;. 07:50 Reassessment: ED doc with RN removed colostomy bag and wrapped perforated bowel with hj kerlix soaked witrh sterile water;. 08:35 Reassessment: surgeon in the room with ED doc, recommended to transfer pt; ordered to wrapped perforated bowel with OR towels soaked with sterile water; called OR to bring sterile OR towels;. Reassessment: OR towels soaked with sterile water applied to perforated bowel;. 09:02 Reassessment: called report to [facility], [id number]- Arcelia Burnett RN; awaiting ambulance transfers;. 09:59 General: Appears in no apparent distress. comfortable, Behavior is calm, cooperative, aj appropriate for age. Neuro: Level of Consciousness is awake, alert, obeys commands, Oriented to person, place, time, situation, Appropriate for age. Respiratory: Airway is patent Respiratory effort is even, unlabored, Respiratory pattern is regular, symmetrical. GI: Colostomy site Ostomy appliance is prolapsed Ostomy is prolapsed. Derm: Skin is intact, is healthy with good turgor, Skin is pink, warm \T\ dry. normal. Vital Signs: 05:44 BP 128 / 88; Pulse 63; Resp 20; Temp 97.8(O); Pulse Ox 98% on R/A; Weight 77.11 kg (R); Height 6 ft. 1 in. (185.42 cm) (R); Pain 10/10; 07:17 BP 133 / 77; Pulse 55; Resp 18; Temp 98.1(TE); Pulse Ox 100% on 2 lpm NC; hj 07:30 BP 106 / 67; Pulse 62; Resp 18; Pulse Ox 99% on 2 lpm NC; hj 08:07 BP 134 / 90; Pulse 59; Resp 18; Pulse Ox 100% on 2 lpm NC; hj 09:05 BP 138 / 82; Pulse 56; Resp 18; Pulse Ox 100% on 2 lpm NC; hj 10:01 BP 110 / 81; Pulse 68; Resp 16; Pulse Ox 99% on 2 lpm NC; aj 10:55 BP 112 / 81; Pulse 79; Resp 19; Pulse Ox 100% on 2 lpm NC; aj 05:44 Body Mass Index 22.43 (77.11 kg, 185.42 cm) ED Course: 05:30 Patient arrived in ED. ag3 05:42 Rashaun Jiménez MD is Attending Physician. diego 05:44 Nathaniel Kumar, BRITTNY is Primary Nurse. jb4 05:44 Arm band placed on right wrist. jb4 05:44 Patient has correct armband on for positive identification. Bed in low position. Call jb4 light in reach. Side rails up X 1. Pulse ox on. NIBP on. 06:27 Radiology exam delayed due to PT WANTS TO WAIT FOR PAIN MED TO WORK. WILL TRY AGAIN. kw 06:41 Triage completed. jb4 07:00 XRAY Chest (1 view) In Process Unspecified. EDMS 07:00 Report given to BRITTNY Parada. jb4 07:00 Inserted saline lock: 20 gauge in right antecubital area, using aseptic technique. hj 07:00 Inserted saline lock: 20 gauge in right forearm, using aseptic technique. hj 07:[address] Jiménez with Tawny from the [facility] transfer center. eb 07:[address] Hernandez the Surgeon senior environmental engineer for [facility] with Dr. Jiménez for patient eb transfer consultation. 08:12 transfer initiated with Emili Dalal by Dr. Jiménez at the [facility] eb Center. 08:38 administrative approval given by Emili Dalal / patient has been accepted to [facility] bed 1555/ Dr. Larson has accepted the patient in transfer/ report to be called to [phone]. 08:45 wrapping bowel with wet lola. hj 09:04 Patient transferred, IV remains in place. intact. hj Administered Medications: 06:06 Drug: Pepcid 20 mg Route: IVP; Site: right forearm; jb4 07:34 Follow up: Response: No adverse reaction hj 06:07 Drug: Zofran 4 mg Route: IVP; Site: right forearm; jb4 06:30 Follow up: Response: No adverse reaction; Nausea unchanged jb4 06:09 Drug: morphine 4 mg Route: IVP; Site: right forearm; jb4 06:30 Follow up: Response: No adverse reaction; Pain is unchanged, physician notified jb4 06:10 Drug: NS 0.9% 1000 ml Route: IV; Rate: 1 bolus; Site: right antecubital; jb4 08:00 Follow up: IV Status: Completed infusion; IV Intake: 1000ml hj 06:10 Drug: NS 0.9% 1000 ml Route: IV; Rate: 125 ml/hr; Site: right forearm; jb4 09:01 Follow up: IV Status: Infusion continued upon transfer hj 06:10 Drug: Flagyl 500 mg Volume: 100 ml; Route: IVPB; Rate: 200 ml/hr; Infused Over: 30 jb4 mins; Site: right forearm; 08:00 Follow up: IV Status: Completed infusion; IV Intake: 100ml hj 06:10 Drug: LevaQUIN 500 mg Volume: 100 ml; Route: IVPB; Infused Over: 60 mins; Site: right jb4 antecubital; 08:00 Follow up: IV Status: Completed infusion hj 06:40 Drug: Zofran 4 mg Route: IVP; Site: right antecubital; jb4 07:34 Follow up: Response: No adverse reaction hj 06:43 Drug: morphine 4 mg Route: IVP; Site: right antecubital; jb4 07:34 Follow up: Response: No adverse reaction hj 07:54 Drug: fentaNYL (PF) 50 mcg Route: IVP; Site: right antecubital; bp 09:00 Follow up: Response: No adverse reaction hj Intake: 08:00 IV: 100ml; Total: 100ml. hj 08:00 IV: 1000ml; Total: 1100ml. hj Outcome: 07:28 ER care complete, transfer ordered by . diego 09:04 Transferred by ground EMS to [facility], Transfer form completed. hj X-rays sent w/ patient. 09:04 Condition: stable 09:04 Instructed on the need for transfer, Demonstrated understanding of instructions. 10:56 Patient left the ED. radha Signatures: Dispatcher [employer] EDMS Drea Galicia RN RN aj Anderson, Corey, MD MD cha Whitley, Kimberlee kw Joaquin, Henry, RN RN hj Bryson, James, RN RN jb4 Peltier, Brian, RN RN bp Botello, Elizabeth eb Gomez, Alice ag3 Corrections: (The following items were deleted from the chart) 08:09 05:44 BP 128 / 88; Pulse 63bpm; Resp 20bpm; Pulse Ox 98% RA; Temp 97.8F Oral; 77.11 kg hj Reported; Height 6 ft. 1 in. Reported; BMI: 22.4; Pain 10/10; jb4 08:09 07:17 BP 133 / 77; Pulse 55bpm; Resp 18bpm; Pulse Ox 100% RA; Temp 98.1F Temporal; hj 08:09 08:07 BP 134 / 90; Pulse 59bpm; Resp 18bpm; Pulse Ox 100% RA; [facility] 09:05 09:05 BP 138 / 82; Pulse 56bpm; Resp 18bpm; Pulse Ox 100% RA; [facility] 10:55 10:01 BP 110 / 81; Pulse 68bpm; Resp 16bpm; Pulse Ox 99% RA; aj aj
--- NOTE | 2019-03-17 07:29 | EDPHYS ---
Physician Documentation [facility] Name: Rico Mcneill Age: 49 yrs Sex: Male : 1970 Arrival Date: 03/17/2019 Time: 05:30 Bed 14 Private MD: JEANNETTE Physician Rashaun Jiménez HPI: 03/17 05:48 This 49 yrs old Male presents to ER via Unassigned with complaints of diego COLOSTOMY BAG PROBLEM. 05:48 The patient presents with abdominal pain in the upper abdomen, abdominal distention in diego the right upper quadrant, in the right lower quadrant. Onset: The symptoms/episode began/occurred yesterday. The symptoms do not radiate. Associated signs and symptoms: Pertinent positives: nausea and vomiting. The symptoms are described as constant. Modifying factors: The symptoms are alleviated by nothing, the symptoms are aggravated by movement, pressure. Severity of pain: At its worst the pain was moderate in the emergency department the pain has resolved. The patient has experienced similar episodes in the past, a few times. Historical: - Allergies: 05:44 NKDA; jb4 - Home Meds: 05:44 None [Active]; jb4 - PMHx: 05:44 Bipolar disorder; bowel obstruction; colostomy; Hypertension; Hypothyroidism; jb4 - PSHx: 05:44 Colostomy; jb4 - Immunization history:: Adult Immunizations up to date. - Social history:: Smoking status: Patient/guardian denies using tobacco, Patient uses alcohol, occasionally. - Family history:: not pertinent. - Ebola Screening: : No symptoms or risks identified at this time. ROS: 05:48 Constitutional: Negative for fever, chills, and weight loss, Eyes: Negative for injury, diego pain, redness, and discharge, ENT: Negative for injury, pain, and discharge, Neck: Negative for injury, pain, and swelling, Cardiovascular: Negative for chest pain, palpitations, and edema, Respiratory: Negative for shortness of breath, cough, wheezing, and pleuritic chest pain, Back: Negative for injury and pain, : Negative for injury, bleeding, discharge, and swelling, MS/Extremity: Negative for injury and deformity, Skin: Negative for injury, rash, and discoloration, Neuro: Negative for headache, weakness, numbness, tingling, and seizure, Psych: Negative for depression, anxiety, suicide ideation, homicidal ideation, and hallucinations, Allergy/Immunology: Negative for hives, rash, and allergies, Endocrine: Negative for neck swelling, polydipsia, polyuria, polyphagia, and marked weight changes, Hematologic/Lymphatic: Negative for swollen nodes, abnormal bleeding, and unusual bruising. 05:48 Abdomen/GI: Positive for abdominal pain, of the right lower quadrant, colostomy, prolapsed bowel, ischemic, 12 inches. Exam: 05:48 Constitutional: This is a well developed, well nourished patient who is awake, alert, diego and in no acute distress. Head/Face: Normocephalic, atraumatic. Eyes: Pupils equal round and reactive to light, extra-ocular motions intact. Lids and lashes normal. Conjunctiva and sclera are non-icteric and not injected. Cornea within normal limits. Periorbital areas with no swelling, redness, or edema. ENT: Nares patent. No nasal discharge, no septal abnormalities noted. Tympanic membranes are normal and external auditory canals are clear. Oropharynx with no redness, swelling, or masses, exudates, or evidence of obstruction, uvula midline. Mucous membranes moist. Neck: Trachea midline, no thyromegaly or masses palpated, and no cervical lymphadenopathy. Supple, full range of motion without nuchal rigidity, or vertebral point tenderness. No Meningismus. Chest/axilla: Normal chest wall appearance and motion. Nontender with no deformity. No lesions are appreciated. Cardiovascular: Regular rate and rhythm with a normal S1 and S2. No gallops, murmurs, or rubs. Normal PMI, no JVD. No pulse deficits. Respiratory: Lungs have equal breath sounds bilaterally, clear to auscultation and percussion. No rales, rhonchi or wheezes noted. No increased work of breathing, no retractions or nasal flaring. Back: No spinal tenderness. No costovertebral tenderness. Full range of motion. Male : Normal genitalia with no discharge or lesions. Skin: Warm, dry with normal turgor. Normal color with no rashes, no lesions, and no evidence of cellulitis. MS/ Extremity: Pulses equal, no cyanosis. Neurovascular intact. Full, normal range of motion. Neuro: Awake and alert, GCS 15, oriented to person, place, time, and situation. Cranial nerves II-XII grossly intact. Motor strength 5/5 in all extremities. Sensory grossly intact. Cerebellar exam normal. Normal gait. Psych: Awake, alert, with orientation to person, place and time. Behavior, mood, and affect are within normal limits. 05:48 Abdomen/GI: Inspection: distension, Bowel sounds: hyperactive, Palpation: mild abdominal tenderness, in the right lower quadrant, Liver: no appreciated palpable abnormalities, Hernia: not appreciated, ischemic. Vital Signs: 05:44 BP 128 / 88; Pulse 63; Resp 20; Temp 97.8(O); Pulse Ox 98% on R/A; Weight 77.11 kg (R); hj Height 6 ft. 1 in. (185.42 cm) (R); Pain 10/10; 07:17 BP 133 / 77; Pulse 55; Resp 18; Temp 98.1(TE); Pulse Ox 100% on 2 lpm NC; hj 07:30 BP 106 / 67; Pulse 62; Resp 18; Pulse Ox 99% on 2 lpm NC; hj 08:07 BP 134 / 90; Pulse 59; Resp 18; Pulse Ox 100% on 2 lpm NC; hj 09:05 BP 138 / 82; Pulse 56; Resp 18; Pulse Ox 100% on 2 lpm NC; hj 10:01 BP 110 / 81; Pulse 68; Resp 16; Pulse Ox 99% on 2 lpm NC; aj 10:55 BP 112 / 81; Pulse 79; Resp 19; Pulse Ox 100% on 2 lpm NC; aj 05:44 Body Mass Index 22.43 (77.11 kg, 185.42 cm) MDM: 05:42 Patient medically screened. [facility] 05:53 Data reviewed: vital signs, nurses notes, lab test result(s), EKG, radiologic studies, [facility] CT scan, plain films. 08:06 ED course: call to dr gautam at 6am, told to call dr Diaz or transfer, will need [facility] colorectal surgeon or the surgeon that did the original surgery, with no history as to why, call to dr diaz x several, dr diaz on the way to see the patient, states will send to colorectal md, meanwhile bowel covered in saline guaze and left outside the colostomy bag . call to [facility] rios. dr diaz in route to see. 03/17 05:48 Order name: Basic Metabolic Panel [facility] 03/17 05:48 Order name: CBC with Diff; Complete Time: 07:13 diego 03/17 05:48 Order name: LFT's; Complete Time: 07:13 [facility] 03/17 05:48 Order name: Magnesium; Complete Time: 07:13 [facility] 03/17 05:48 Order name: NT PRO-BNP; Complete Time: 07:13 [facility] 03/17 05:48 Order name: PT-INR; Complete Time: 07:13 diego 03/17 05:48 Order name: Troponin (emerg Dept Use Only); Complete Time: 07:13 [facility] 03/17 05:48 Order name: XRAY Chest (1 view) [facility] 03/17 05:48 Order name: Lipase; Complete Time: 07:13 [facility] 03/17 05:48 Order name: Basic Metabolic Panel; Complete Time: 07:13 EDMS 03/17 05:48 Order name: EKG; Complete Time: 05:49 [facility] 03/17 05:48 Order name: Cardiac monitoring; Complete Time: 07:11 [facility] 03/17 05:48 Order name: EKG - Nurse/Tech; Complete Time: 07:11 [facility] 03/17 05:48 Order name: IV Saline Lock; Complete Time: 07:11 [facility] 03/17 05:48 Order name: Labs collected and sent; Complete Time: 07:11 [facility] 03/17 05:48 Order name: O2 Per Protocol; Complete Time: 07:11 [facility] 03/17 05:48 Order name: O2 Sat Monitoring; Complete Time: 07:11 [facility] 03/17 08:33 Order name: NPO; Complete Time: 08:45 [facility] Administered Medications: 06:06 Drug: Pepcid 20 mg Route: IVP; Site: right forearm; jb4 07:34 Follow up: Response: No adverse reaction hj 06:07 Drug: Zofran 4 mg Route: IVP; Site: right forearm; jb4 06:30 Follow up: Response: No adverse reaction; Nausea unchanged jb4 06:09 Drug: morphine 4 mg Route: IVP; Site: right forearm; jb4 06:30 Follow up: Response: No adverse reaction; Pain is unchanged, physician notified jb4 06:10 Drug: NS 0.9% 1000 ml Route: IV; Rate: 1 bolus; Site: right antecubital; jb4 08:00 Follow up: IV Status: Completed infusion; IV Intake: 1000ml hj 06:10 Drug: NS 0.9% 1000 ml Route: IV; Rate: 125 ml/hr; Site: right forearm; jb4 09:01 Follow up: IV Status: Infusion continued upon transfer hj 06:10 Drug: Flagyl 500 mg Volume: 100 ml; Route: IVPB; Rate: 200 ml/hr; Infused Over: 30 jb4 mins; Site: right forearm; 08:00 Follow up: IV Status: Completed infusion; IV Intake: 100ml hj 06:10 Drug: LevaQUIN 500 mg Volume: 100 ml; Route: IVPB; Infused Over: 60 mins; Site: right jb4 antecubital; 08:00 Follow up: IV Status: Completed infusion hj 06:40 Drug: Zofran 4 mg Route: IVP; Site: right antecubital; jb4 07:34 Follow up: Response: No adverse reaction hj 06:43 Drug: morphine 4 mg Route: IVP; Site: right antecubital; jb4 07:34 Follow up: Response: No adverse reaction hj 07:54 Drug: fentaNYL (PF) 50 mcg Route: IVP; Site: right antecubital; 09:00 Follow up: Response: No adverse reaction Disposition: 03/17/19 07:[address] [facility]. Diagnosis are Colostomy complications - prolapsed bowel, ischemic, Abdominal tenderness, Gastrointestinal hemorrhage, unspecified - colostomy. - Reason for transfer: Higher level of care. - Accepting physician is to [facility] Dr. RYAN Rodriguez. - Condition is Serious. - Problem is new. - Symptoms have improved. Signatures: Dispatcher [employer] EDMT Drea Galicia RN RN aj Anderson, Corey, MD MD cha Bryson, James, RN RN jb Raffaele Chan RN RN bp Joaquin, Henry RN Corrections: (The following items were deleted from the chart) 08:33 07:28 03/17/2019 07:28 Transfer ordered to [facility]. Diagnosis is Colostomy diego complications - prolapsed bowel, ischemic; Abdominal tenderness; Gastrointestinal hemorrhage, unspecified - colostomy. Reason for transfer: Higher level of care. Accepting physician [facility] to [facility]. Condition is Serious. Problem is new. Symptoms have improved. diego 10:56 08:33 03/17/2019 07:[address] [facility]. Diagnosis is aj Colostomy complications - prolapsed bowel, ischemic; Abdominal tenderness; Gastrointestinal hemorrhage, unspecified - colostomy. Reason for transfer: Higher level of care. Accepting physician is to [facility] Rodriguez, Dr. DAVIS. Condition is Serious. Problem is new. Symptoms have improved. diego
[2019-03-17] MEDS ORDERED: FENTANYL CITR 100 MCG/2 ML ONE (08:06)
--- NOTE | 2019-03-17 09:12 | RAD REPORT ---
EXAM DESCRIPTION: RAD - Chest Single View - 03/17/2019 6:59 am CLINICAL HISTORY: Abdominal pain, abdominal distention COMPARISON: March 12 TECHNIQUE: AP portable chest image was obtained 0656 hours . FINDINGS: No mass or consolidation. Lung pattern is similar to comparison. Hilar regions also simila r and stable. Trachea is midline. Heart and vasculature are normal. No measurable pleural effusion an d no pneumothorax. No acute bony abnormality seen. No acute aortic findings suspected. IMPRESSION: No acute cardiopulmonary process. No significant change from March 12 study.
[2019-03-17 11:03] VITALS: TEMP 98.1
[2019-03-17 11:10] VITALS: BP 112/81; O2SAT 100
--- NOTE | 2019-03-17 11:21 | EKG ---
Test Date: 2019-03-17 Test Time: 06:48:54 [employer]: LUMAT MEASUREMENT RESULTS: Intervals: Rate: 53 MT: 112 QRSD: 92 QT: 458 QTc: 429 [place]: P: 47 MT: 112 QRS: 62 T: 67 INTERPRETIVE STATEMENTS: Sinus bradycardia Otherwise normal ECG Compared to ECG 03/12/2019 19:50:28 Sinus rhythm no longer present Electronically Signed On 03-17-19 11:20:54 CDT by Vicente Walker
--- NOTE | 2019-03-18 08:58 | CON ---
Date of Consultation: 03/17/2019 Reason For Service: Colostomy hernia with herniated bowel. History Of Present Illness: This is a case of a 49-year-old patient with multiple surgical histories , hard to obtain any information from him. When he noticed his colostomy, he said intestines were co chente through his colostomy with prolapse. He decided to come to the ER. We found about a foot of in testines outside. He says that he has been pulling with that before would never really stay outside for that long. He says his surgical history is extensive [facility] until recently. He says he has at least 4 laparotomies done and every time they go there they release and unkink bowel and then after that it kinks once again and they have to do it once again and the last time they just put a c olostomy in. At that moment, does not have any peritonitis but obviously he is trying to take a look at this area. The patient came last night. They were initially intentions to transfer this patient out this morning, I was covering the hospital the last night and they asked to see if I can see this patient before the patient gets transferred. Review of Systems: Ten points unremarkable. He denies any dysuria, hematochezia, or melena. Review of Systems: Ten points, otherwise unremarkable. Past Medical History: Small bowel obstructions as per patient. Colonic obstructions as per patient. Social Habits: Unknown. Family History: Unknown. Past Surgical History: As described above. Allergies: NONE. Physical Examination: General: The patient is awake and, alert in no distress. Once again, he cannot give much informatio n, but not because he does not want to, it is because he really does not know. Eyes: Pupils are equal and reactive, anicteric. Neck: Supple. Chest: Clear. Abdomen: Soft and depressible. No guarding or rebound. He has a lot of foot and a little more of i ntestines prolapsed with the ostomy. There is no ischemia at this moment. Right now, even though th e ER physicians at the beginning he has noticed some ischemia, right now and capillary ref ill of that bowel. It does seem to get reduced like that. The patient is not a big patient's of edilberto t amount of intestines are back. It requires some pushing up, obviously he cannot tolerate with pain if we to do that. Rectal: Deferred. Extremities: Good capillary refill. Assessment: This is a male who comes to us with multiple surgeries. We do not know anything about t he history done in [email or web address] with many complications this area. He has colon coming through the bowel although that is no necrosis or gangrene at this time. I believe shoul d be addressed, but I believe should be addressed with the expertise of the [facility] [[email or web address] colorectal surgeons there since they have been working on him before. At this moment, his vital signs are stable and he is stable, I believe he should be in a tertiary center especially when he has some any surgeries done recently in that institution. So, I agreed with the previous surgeon and the ER physicians to try a nd to transfer this patient to a higher level of care while he still has vital signs stable. He is a wake and alert. He is not in any distress at this moment. ANGIE/CAROLE Voice ID: [id number] Report ID: [id number]
== END 2019-03-17 10:56 | disposition short-term general hospital (02) ==
LOC: ER 05:26
DX: K94.09 Other complications of colostomy (principal); K63.4 Enteroptosis; K92.2 Gastrointestinal hemorrhage, unspecified; F31.9 Bipolar disorder, unspecified; I10 Essential (primary) hypertension; E03.9 Hypothyroidism, unspecified
CPT/HCPCS: 36415; 71045; 80048; 80076; 83690; 83735; 83880; 84484; 85025; 85610; 93005; 96361; 96365; 96366; 96368; 96375; 99285; J2405; J3010; J7030

== ENCOUNTER 2019-04-02 09:52 | Emergency (ER) | payer SELFPAY ==
--- OUTSIDE RECORDS SUMMARY | 2019-04-02 09:56 | XMS REPORT | Clinical Summary ---
:1970 Author Organization [facility] Address [address] [place] [address] Care Team Providers Name Role Phone Pcp, No Primary Care Provider Unavailable Allergies No Known Allergies Medications Medication Sig Dispensed Refills Start Date End Date Status acetaminophen Take 2 tablets 30 tablet 0 04/01/2019 03/26/2020 Active (TYLENOL) 325 MG (650 mg total) tablet by mouth every 6 (six) hours as needed for up to 360 days. tamsulosin (FLOMAX) Take 1 capsule 15 capsule 0 04/02/2019 Active 0.4 mg Cap 24 hr (0.4 mg total) capsule by mouth daily. traMADol (ULTRAM) 50 Take 1 tablet 20 tablet 0 04/01/2019 04/11/2019 Active mg tablet (50 mg total) by mouth every 6 (six) hours as needed for up to 10 days. 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 Encounters Date Type Specialty Care Team Description 03/25/2019 Anesthesia Event Luis Morales MD 03/25/2019 Surgery Graciela Garrison LAPAROTOMY,ISHAAN FMD CHERYL Childers 03/23/2019 Surgery Gastroenterology Vicente Monsivais COLONOSCOPY MD Niru 03/23/2019 Anesthesia Event Gastroenterology Karin Wallis 03/18/2019 Anesthesia Event Chago Moise MD 03/18/2019 Surgery Marsha, REVISION,ILEOSTOMY Juan Alberto Simmons MD 03/17/2019 - [facility] Internal [facility], Intestinal stoma prolapse (HCC); 04/01/2019 Encounter Medicine Juan Alberto Simmons, S/P small bowel resection; Colon stricture (HCC); Increased ileostomy output (HCC) after 04/01/2018 Social History Tobacco Use Types Packs/Day Years Used Date Never Smoker Smokeless Tobacco: Current User Snuff Tobacco Cessation: Ready to Quit: Yes; Counseling Given: No Alcohol Use Drinks/Week oz/Week Comments Yes 1 Cans of beer 0.6 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 Sex Assigned at Date Recorded Not on file Job Start Date Occupation Industry Not on file Not on file Not on file Travel History Travel Start Travel End No recent travel history available. Last Filed Vital Signs Vital Sign Reading Time Taken Blood Pressure 120/72 04/01/2019 2:20 PM CDT Pulse 100 04/01/2019 2:20 PM CDT Temperature 36.1 C (96.9 F) 04/01/2019 2:20 PM CDT Respiratory Rate 18 04/01/2019 2:20 PM CDT Oxygen Saturation 97% 04/01/2019 2:20 PM CDT Inhaled Oxygen Concentration - - Weight 77.1 kg (170 lb) 03/23/2019 9:25 AM CDT Height 185.4 cm (6' 1") 03/23/2019 9:25 AM CDT Body Mass Index 22.43 03/23/2019 9:25 AM CDT Plan of Treatment Not on file Implants Implanted Type Area Data Services Developer Device Shelf Model / Identifier Expiration Serial / Date Lot Memb Sepfilgold [employer] 5x6 4301-02 - [id number] IMPLANTS N/A: GENZYME ROSALIE: 09/23/2021 4301-02 / Implanted: Qty: 1 on 03/25/2019 by Graciela Garrison MD Abdomen BIO-SURG / [id number] Procedures Procedure Name Priority Date/Time Associated Comments Diagnosis CBC (HEMOGRAM ONLY) Routine 04/01/2019 4:48 Results for this AM CDT procedure are in the results section. PHOSPHORUS STAT 04/01/2019 4:48 Results for this AM CDT procedure are in the results section. MAGNESIUM STAT 04/01/2019 4:48 Results for this AM CDT procedure are in the results section. 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 STAT 04/01/2019 4:48 Results for this PANEL (7) AM CDT procedure are in the results section. CBC (HEMOGRAM ONLY) Routine 03/31/2019 4:57 Results for this AM CDT procedure are in the results section. PHOSPHORUS STAT 03/31/2019 4:57 Results for this AM CDT procedure are in the results section. MAGNESIUM STAT 03/31/2019 4:57 Results for this AM CDT procedure are in the results section. 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 STAT 03/31/2019 4:57 Results for this PANEL (7) AM CDT procedure are in the results section. CBC (HEMOGRAM ONLY) Routine 03/30/2019 3:56 Results for this AM CDT procedure are in the results section. PHOSPHORUS STAT 03/30/2019 3:56 Results for this AM CDT procedure are in the results section. MAGNESIUM STAT 03/30/2019 3:56 Results for this AM CDT procedure are in the results section. 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 STAT 03/30/2019 3:56 Results for this PANEL (7) AM CDT procedure are in the results section. CT ABDOMEN/PELVIS STAT 03/29/2019 1:29 Results for this WITH IV CONTRAST PM CDT procedure are in the results section. XR ABDOMEN 1 VIEW Routine 03/29/2019 8:10 Results for this AM CDT procedure are in the results section. CBC (HEMOGRAM ONLY) Routine 03/29/2019 8:00 Results for this AM CDT procedure are in the results section. PHOSPHORUS STAT 03/29/2019 5:02 Results for this AM CDT procedure are in the results section. MAGNESIUM STAT 03/29/2019 5:02 Results for this AM CDT procedure are in the results section. 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 STAT 03/29/2019 5:02 Results for this PANEL (7) AM CDT procedure are in the results section. XR ABDOMEN ACUTE STAT 03/28/2019 9:19 Results for this SERIES FLAT W PM CDT procedure are in UPRIGHT CHEST OR the results DECUBS section. XR ABDOMEN 1 VIEW STAT 03/28/2019 10:10 Results for this AM CDT procedure are in the results section. PHOSPHORUS STAT 03/28/2019 4:10 Results for this AM CDT procedure are in the results section. MAGNESIUM STAT 03/28/2019 4:10 Results for this AM CDT procedure are in the results section. 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 STAT 03/28/2019 4:10 Results for this PANEL (7) AM CDT procedure are in the results section. PHOSPHORUS STAT 03/27/2019 5:06 Results for this AM CDT procedure are in the results section. MAGNESIUM STAT 03/27/2019 5:06 Results for this AM CDT procedure are in the results section. 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 STAT 03/27/2019 5:06 Results for this PANEL (7) AM CDT procedure are in the results section. PHOSPHORUS STAT 03/26/2019 5:20 Results for this AM CDT procedure are in the results section. MAGNESIUM STAT 03/26/2019 5:20 Results for this AM CDT procedure are in the results section. 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 STAT 03/26/2019 5:20 Results for this PANEL (7) AM CDT procedure are in the results section. TRANSFUSION SERVICE 03/25/2019 6:01 REPORT - SCAN PM CDT TISSUE EXAM AP Routine 03/25/2019 11:33 Results for this AM CDT procedure are in the results section. CLOSURE,ILEOSTOMY 03/25/2019 9:05 Ileostomy status AM CDT (HCC) Case Notes [address] ORDONEZ Special Needs (NO ICU BED NEEDED) LAPAROTOMY,EXPLORATORY 03/25/2019 9:05 AM CDT Ileostomy status (HCC) Case Notes [address] ORDONEZ Special Needs (NO ICU BED NEEDED) CBC (HEMOGRAM ONLY) Routine 03/25/2019 5:18 AM Results for this CDT procedure are in the results section. PHOSPHORUS STAT 03/25/2019 5:18 AM Results for this CDT procedure are in the results section. MAGNESIUM STAT 03/25/2019 5:18 AM Results for this CDT procedure are in the results section. 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 PANEL STAT 03/25/2019 5:18 AM Results for this (7) CDT procedure are in the results section. TYPE AND SCREEN, Routine 03/24/2019 12:38 PM Results for this AUTOMATED CDT procedure are in the results section. PHOSPHORUS STAT 03/24/2019 4:17 AM Results for this CDT procedure are in the results section. MAGNESIUM STAT 03/24/2019 4:17 AM Results for this CDT procedure are in the results section. 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 PANEL STAT 03/24/2019 4:17 AM Results for this (7) CDT procedure are in the results section. REPORT OF PROCEDURE - 03/23/2019 10:14 AM ENDOSCOPY URL CDT COLONOSCOPY 03/23/2019 10:00 AM Colonic stricture CDT (HCC) Case Notes DR DIDN'T HAVE HARD COPY TO SEND/freed CBC (HEMOGRAM ONLY) Routine 03/23/2019 5:48 AM Results for this CDT procedure are in the results section. PHOSPHORUS STAT 03/23/2019 5:48 AM Results for this CDT procedure are in the results section. MAGNESIUM STAT 03/23/2019 5:48 AM Results for this CDT procedure are in the results section. 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 PANEL STAT 03/23/2019 5:48 AM Results for this (7) CDT procedure are in the results section. PHOSPHORUS STAT 03/22/2019 6:13 AM Results for this CDT procedure are in the results section. MAGNESIUM STAT 03/22/2019 6:13 AM Results for this CDT procedure are in the results section. 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 PANEL STAT 03/22/2019 6:13 AM Results for this (7) CDT procedure are in the results section. CBC W/PLT COUNT & STAT 03/22/2019 4:46 AM Results for this AUTO DIFFERENTIAL CDT procedure are in the results section. CBC W/PLT COUNT & STAT 03/22/2019 4:46 AM Results for this AUTO DIFFERENTIAL CDT procedure are in the results section. FL COLON JOÃO 03/21/2019 4:30 PM Results for this CDT procedure are in the results section. CBC W/PLT COUNT & STAT 03/21/2019 2:53 AM Results for this AUTO DIFFERENTIAL CDT procedure are in the results section. PHOSPHORUS STAT 03/21/2019 2:53 AM Results for this CDT procedure are in the results section. MAGNESIUM STAT 03/21/2019 2:53 AM Results for this CDT procedure are in the results section. CBC W/PLT COUNT & STAT 03/21/2019 2:53 AM Results for this AUTO DIFFERENTIAL CDT procedure are in the results section. 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 PANEL STAT 03/21/2019 2:53 AM Results for this (7) CDT procedure are in the results section. CBC W/PLT COUNT & STAT 03/20/2019 4:31 AM Results for this AUTO DIFFERENTIAL CDT procedure are in the results section. PHOSPHORUS STAT 03/20/2019 4:31 AM Results for this CDT procedure are in the results section. MAGNESIUM STAT 03/20/2019 4:31 AM Results for this CDT procedure are in the results section. CBC W/PLT COUNT & STAT 03/20/2019 4:31 AM Results for this AUTO DIFFERENTIAL CDT procedure are in the results section. 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 PANEL STAT 03/20/2019 4:31 AM Results for this (7) CDT procedure are in the results section. TRANSFUSION SERVICE 03/19/2019 5:50 PM REPORT - SCAN CDT CBC W/PLT COUNT & STAT 03/19/2019 3:38 AM Results for this AUTO DIFFERENTIAL CDT procedure are in the results section. PHOSPHORUS STAT 03/19/2019 3:38 AM Results for this CDT procedure are in the results section. MAGNESIUM STAT 03/19/2019 3:38 AM Results for this CDT procedure are in the results section. CBC W/PLT COUNT & STAT 03/19/2019 3:38 AM Results for this AUTO DIFFERENTIAL CDT procedure are in the results section. 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 PANEL STAT 03/19/2019 3:38 AM Results for this (7) CDT procedure are in the results section. TISSUE EXAM AP Routine 03/18/2019 6:27 PM Results for this CDT procedure are in the results section. REVISION,ILEOSTOMY 03/18/2019 4:00 PM Prolapse of CDT ileostomy (HCC) Special Needs REQ:TF ABORH, MANUAL STAT 03/18/2019 6:18 AM CDT CBC W/PLT COUNT & AUTO STAT 03/18/2019 5:15 AM CDT Results for this DIFFERENTIAL procedure are in the results section. TYPE AND SCREEN, AUTOMATED STAT 03/18/2019 5:15 AM CDT PHOSPHORUS STAT 03/18/2019 5:15 AM CDT MAGNESIUM STAT 03/18/2019 5:15 AM CDT CBC W/PLT COUNT & AUTO STAT 03/18/2019 5:15 AM CDT Results for this DIFFERENTIAL procedure are in the results section. 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 PANEL (7) STAT 03/18/2019 5:[address] ABDOMEN/PELVIS WITHOUT IV STAT 03/17/2019 4:38 PM CDT Results for this CONTRAST procedure are in the results section. after 04/01/2018 Results CBC (Hemogram only) (04/01/2019 4:48 AM CDT)Only the most recent of6 resultswithin the time period is included. WBC 5.6 3.5 - 10.5 K/L [facility] RBC 3.28 (L) 4.63 - 6.08 M/L [facility] Hemoglobin 9.7 (L) 13.7 - 17.5 GM/DL [facility] Hematocrit 29.9 (L) 40.1 - 51.0 % [facility] MCV 91.2 79.0 - 92.2 fL [facility] MCH 29.6 25.7 - 32.2 pg [facility] MCHC 32.4 32.3 - 36.5 GM/DL [facility] RDW 12.9 11.6 - 14.4 % [facility] Platelets 374 150 - 450 K/CU MM [facility] MPV 9.8 9.4 - 12.4 fL [facility] nRBC 0 0 - 0 /100 WBC [facility] Specimen Blood Performing Organization Address City/[facility] Phone Number [address] [address] [phone] CENTER Phosphorus (04/01/2019 4:48 AM CDT)Only the most recent of15 resultswithin the time period is included. Phosphorus 2.5 2.3 - 4.7 mg/dL [facility] Specimen Blood Performing Organization Address City/[facility] Cent[facility]ode Phone Number [address] [address] [phone] CENTER Magnesium (04/01/2019 4:48 AM CDT)Only the most recent of15 resultswithin the time period is included. Magnesium 1.7 1.6 - 2.6 mg/dL [facility] Specimen Blood Performing Organization Address City/[facility] Cent[facility]ode Phone Number [address] [address] [phone] CENTER Basic Metabolic Panel (04/01/2019 4:48 AM CDT)Only the most recent of15 resultswithin the time period is included. Sodium 137 136 - 145 meq/L [facility] Potassium 3.3 (L) 3.5 - 5.1 meq/L [facility] Chloride 101 98 - 107 meq/L [facility] CO2 24 22 - 29 meq/L [facility] BUN 6 (L) 7 - 21 mg/dL [facility] Creatinine 0.72 0.57 - 1.25 mg/dL [facility] Glucose 82 70 - 105 mg/dL [facility] Calcium 8.0 (L) 8.4 - 10.2 mg/dL [facility] EGFR 116Comment: ESTIMATED GFR IS mL/min/1.73 sq m [facility] NOT ACCURATE CREATININE [facility] CLEARANCE IN PREDICTING GLOMERULAR FILTRATION RATE. ESTIMATED GFR IS NOT APPLICABLE FOR DIALYSIS PATIENTS. Specimen Blood Performing Organization Address City/State/Zipcode Phone Number [facility] [address] [place] [address] abdomen/pelvis with IV contrast (03/29/2019 1:29 PM CDT) Specimen Narrative Performed At FINAL REPORT [employer] TECHNIQUE: CT of the abdomen and pelvis WITH intravenous contrast and WITHOUT oral contrast. Dose modulation, iterative reconstruction, and/or weight-based adjustment of the mA/kV was utilized to reduce the radiation dose to as low as reasonably achievable. INDICATION: 49-year-old man with ileus or small bowel traction. COMPARISON: Abdomen and pelvis CT 03/17/2019. FINDINGS: LOWER THORAX: Trace bilateral pleural effusions, left greater than right, with adjacent relaxation atelectasis. HEPATOBILIARY: No focal hepatic lesions. Gallbladder is unremarkable. No biliary ductal dilatation. SPLEEN: No splenomegaly. PANCREAS: No focal masses or ductal dilatation. ADRENALS: No adrenal nodules. KIDNEYS/URETERS: No hydronephrosis, stones, or solid mass lesions. PELVIC ORGANS/BLADDER: The bladder is decompressed by Zepeda catheter. Trace air in the bladder lumen, likely from catheterization. Prostate and seminal vesicles are grossly unremarkable. PERITONEUM/RETROPERITONEUM: Small amount of free air and free fluid. Stranding within the mesenteric fat which underlies the prior ileostomy site. LYMPH NODES: No lymphadenopathy. VESSELS: Unremarkable. GI TRACT: Recent ileostomy takedown. The colon and small bowel are distended, the transverse colon is distended up to 14.6 cm in diameter and the small bowel is distended up to 9.5 cm in diameter, within apparent abrupt change in caliber in the sigmoid. No bowel wall thickening. BONES AND SOFT TISSUES: Unremarkable. IMPRESSION: Distended colon and small bowel with an apparent abrupt change in bowel caliber at the sigmoid. Ileus is favored, however bowel obstruction cannot be entirely excluded. Small amount of pneumoperitoneum and ascites, likely from recent surgery. Focal fat stranding in the region of prior ileostomy site likely represents postsurgical change. Signed: Marsha Kim MD Report Verified Date/Time:03/29/2019 14:16:01 Reading Location: [facility] B1 C013Y CT Body Reading Room Procedure Note Interface, External Ris In - 03/29/2019 2:18 PM CDT FINAL REPORT TECHNIQUE: CT of the abdomen and pelvis WITH intravenous contrast and WITHOUT oral contrast. Dose modulation, iterative reconstruction, and/or weight-based adjustment of the mA/kV was utilized to reduce the radiation dose to as low as reasonably achievable. INDICATION: 49-year-old man with ileus or small bowel traction. COMPARISON: Abdomen and pelvis CT 03/17/2019. FINDINGS: LOWER THORAX: Trace bilateral pleural effusions, left greater than right, with adjacent relaxation atelectasis. HEPATOBILIARY: No focal hepatic lesions. Gallbladder is unremarkable. No biliary ductal dilatation. SPLEEN: No splenomegaly. PANCREAS: No focal masses or ductal dilatation. ADRENALS: No adrenal nodules. KIDNEYS/URETERS: No hydronephrosis, stones, or solid mass lesions. PELVIC ORGANS/BLADDER: The bladder is decompressed by Zepeda catheter. Trace air in the bladder lumen, likely from catheterization. Prostate and seminal vesicles are grossly unremarkable. PERITONEUM/RETROPERITONEUM: Small amount of free air and free fluid. Stranding within the mesenteric fat which underlies the prior ileostomy site. LYMPH NODES: No lymphadenopathy. VESSELS: Unremarkable. GI TRACT: Recent ileostomy takedown. The colon and small bowel are distended, the transverse colon is distended up to 14.6 cm in diameter and the small bowel is distended up to 9.5 cm in diameter, within apparent abrupt change in caliber in the sigmoid. No bowel wall thickening. BONES AND SOFT TISSUES: Unremarkable. IMPRESSION: Distended colon and small bowel with an apparent abrupt change in bowel caliber at the sigmoid. Ileus is favored, however bowel obstruction cannot be entirely excluded. Small amount of pneumoperitoneum and ascites, likely from recent surgery. Focal fat stranding in the region of prior ileostomy site likely represents postsurgical change. Signed: Marsha Kim MD Report Verified Date/Time: 03/29/2019 14:16:01 Reading Location: [facility] C013Y CT Body Reading Room Performing Organization Address City/State/Zipcode Phone Number [employer] XR abdomen / KUB 1 view (03/29/2019 8:10 AM CDT)Only the most recent of2 resultswithin the time period is included. Specimen Narrative Performed At FINAL REPORT [employer] Technique: Supine radiographs of the abdomen dated 03/29/2019. HISTORY: Evaluate ileus. COMPARISON: Abdominal radiographs dated 03/28/2019 IMPRESSION: There has been no change in the distention of the bowel when compared to prior study. Previously seen pneumoperitoneum has resolved. No abnormal soft tissue mass. Surgical skin carmenza are seen along the midline. No fracture. Signed: Nuria Urbina MD Report Verified Date/Time:03/29/2019 10:23:29 Reading Location: [facility] Mammo Reading Room Procedure Note Interface, External Ris In - 03/29/2019 10:53 PM CDT FINAL REPORT Technique: Supine radiographs of the abdomen dated 03/29/2019. HISTORY: Evaluate ileus. COMPARISON: Abdominal radiographs dated 03/28/2019 IMPRESSION: There has been no change in the distention of the bowel when compared to prior study. Previously seen pneumoperitoneum has resolved. No abnormal soft tissue mass. Surgical skin carmenza are seen along the midline. No fracture. Signed: Nuria Urbina MD Report Verified Date/Time: 03/29/2019 10:23:29 Reading Location: [facility] Reading Room Performing Organization Address City/State/Zipcode Phone Number [facility] XR abdomen acute series flat/uprt with uprt pa chest and/or decubs (03/28/2019 9:19 PM CDT) Specimen Narrative Performed At FINAL REPORT [facility] CLINICAL HISTORY: eval ileus EXAMINATION: RAD, ABDOMEN SERIES W/ UPRIGHT PA CHEST COMPARISON: Plain radiograph the abdomen, same day. FINDINGS: Chest: Normal cardiomediastinal silhouette. No pleural effusion. No focal parenchymal process. No pneumothorax or pneumoperitoneum. No acute osseous abnormalities. Small volume free air underneath the right and the diaphragm. Abdomen: Supine and left lateral decubitus view demonstrates small volume pneumoperitoneum which may be related to recent abdominal surgery. Again seen are multiple air-filled loops of small large bowel throughout the abdomen with multiple abnormal air-fluid levels. Scattered areas of mucosal wall thickening. No distal decompressed bowel suggest ileus over obstruction. Surgical carmenza overlie the mid abdomen. Osseous structures are grossly unremarkable. Impression: Small volume pneumoperitoneum is likely postsurgical. Unchanged diffuse distended loops of small and large bowel within the abdomen with no distal decompressed bowel which suggests ileus over obstruction. However if there is persistent clinical concern recommend further evaluation with CT abdomen pelvis. Signed: Jian Bethea MD Report Verified Date/Time:03/28/2019 22:18:50 Procedure Note Interface, External Ris In - 03/28/2019 10:20 PM CDT FINAL REPORT CLINICAL HISTORY: eval ileus EXAMINATION: RAD, ABDOMEN SERIES W/ UPRIGHT PA CHEST COMPARISON: Plain radiograph the abdomen, same day. FINDINGS: Chest: Normal cardiomediastinal silhouette. No pleural effusion. No focal parenchymal process. No pneumothorax or pneumoperitoneum. No acute osseous abnormalities. Small volume free air underneath the right and the diaphragm. Abdomen: Supine and left lateral decubitus view demonstrates small volume pneumoperitoneum which may be related to recent abdominal surgery. Again seen are multiple air-filled loops of small large bowel throughout the abdomen with multiple abnormal air-fluid levels. Scattered areas of mucosal wall thickening. No distal decompressed bowel suggest ileus over obstruction. Surgical carmenza overlie the mid abdomen. Osseous structures are grossly unremarkable. Impression: Small volume pneumoperitoneum is likely postsurgical. Unchanged diffuse distended loops of small and large bowel within the abdomen with no distal decompressed bowel which suggests ileus over obstruction. However if there is persistent clinical concern recommend further evaluation with CT abdomen pelvis. Signed: Jian Bethea MD Report Verified Date/Time: 03/28/2019 22:18:50 Performing Organization Address City/State/Zipcode Phone Number [employer] TRANSFUSION SERVICE REPORT - SCAN (03/25/2019 6:01 PM CDT)Only the most recent of2 resultswithin the time period is included. Narrative Performed At Tissue Exam (03/25/2019 11:33 AM CDT)Only the most recent of2 resultswithin the time period is included. Case Report Surgical Pathology Report Case: [id number] [facility] Authorizing Provider:Graciela Garrison MD Collected: 03/25/2019 1133 [facility] Ordering Location: [facility] PERIOPERATIVE Received: 03/25/2019 1527 SERVICES Pathologist: Jordan Celaya MD Specimens: A) - Ileostomy, end ileostomy B) - Appendix DIAGNOSIS A. SMALL BOWEL, END ILEOSTOMY, TAKEDOWN: [facility] - ENTERIC WALL WITH ULCERATION, TRANSMURAL ACUTE INFLAMMATION, NECROSIS [facility] AND FOCAL INFLAMMATORY CHANGES CONSISTENT WITH DIVERSION COLITIS - VIABLE MARGINS - NEGATIVE FOR DYSPLASIA OR MALIGNANCY B. APPENDIX, APPENDECTOMY: - APPENDIX WITH NO SIGNIFICANT DIAGNOSTIC ABNORMALITY - NEGATIVE FOR MALIGNANCY Signing Pathologist Direct Phone Line: [phone] CPT Code(s) 00182Q0 [facility] CLINICAL HISTORY Pre and postop diagnosis: [facility] ileostomy status [facility] SPECIMEN SOURCE A. End ileostomy; B. [facility] Appendix [facility] GROSS DESCRIPTION A. Received fresh labeled with the patient's name, accession number and "end ileostomy" is an unoriented segment of small bowel measuring 4 cm in length and 5 cm in diameter with a minimal amount of att [facility] ached mesentery. Also received is a second segment of unoriented small bowel measuring 3 cm in length and ranging 1.7-5.5 cm in diameter which has a small amount of mesentery with a focal area of necros [facility] is and hemorrhage. Each segment of small bowel is opened to reveal focal areas of submucosal hemorrhage. In the area of dilatation of the second mentioned segment of small bowel are focal areas of mucos al hemorrhage. Skin is not grossly identified on either segment. The mucosa is slightly edematous. No gross lesions are identified. Lymph nodes are not identified in the mesentery. Lcsw sections are submitted. Section code: A, product representative section of each end of first mentioned segment of small bowel; A2, product representative of first mentioned segment of small bowel mucosa; A3, area of hemorrhagic mesentery of s econd mentioned segment of mucosa; A4, product representative of hemorrhagic mucosa at open end of second portion of small bowel; A5, product representative of stapled margin from second mentioned segment of small bowel, en face. B. Received fresh labeled with the patient's name, accession number and "appendix" is an intact appendix measuring 3.5 cm in length and 0.6 cm in diameter which has a moderate amount of attached mesoap pendix. The serosa is pink and smooth. The proximal end is cauterized. The specimen is serially sectioned to reveal a abad, smooth mucosa. No fecaliths are present. The wall thickness is 0.2 cm. No gross lesions are identified. Lcsw sections are submitted. Section code: B1, proximal margin en face and tip; B2, product representative cross section. CG/pl MICROSCOPIC DESCRIPTION Performed. [facility] Specimen Tissue Tissue - Appendix structure (body structure) Performing Organization Address City/State/Zipcode Phone Number [facility] [address] [place] [address] [phone] CENTER Type and screen, automated (03/24/2019 12:38 PM CDT)Only the most recent of2 resultswithin the time period is included. ABO/RH AUTOMATED (BEAKER) O POSITIVE [facility] Ab Scrn NEGATIVE [facility] Specimen Blood Performing Organization Address City/State/Zipcode Phone Number [facility] [address] [place] [address] REPORT OF PROCEDURE - ENDOSCOPY URL (03/23/2019 10:14 AM CDT) Narrative Performed At CBC with platelet count + automated diff (03/22/2019 4:46 AM CDT)Only the most recent of5 resultswithin the time period is included. WBC 5.0 3.5 - 10.5 K/L [facility] RBC 3.85 (L) 4.63 - 6.08 M/L [facility] Hemoglobin 11.7 (L) 13.7 - 17.5 GM/DL [facility] Hematocrit 34.8 (L) 40.1 - 51.0 % [facility] MCV 90.4 79.0 - 92.2 fL [facility] MCH 30.4 25.7 - 32.2 pg [facility] MCHC 33.6 32.3 - 36.5 GM/DL [facility] RDW 13.7 11.6 - 14.4 % [facility] Platelets 247 150 - 450 K/CU MM [facility] MPV 11.1 9.4 - 12.4 fL [facility] nRBC 0 0 - 0 /100 WBC [facility] % Neutros 60 % [facility] % Lymphs 26 % [facility] % Monos 9 % [facility] % Eos 4 % [facility] % Baso 1 % [facility] # Neutros 2.99 1.78 - 5.38 K/L [facility] # Lymphs 1.30 (L) 1.32 - 3.57 K/L [facility] # Monos 0.47 0.30 - 0.82 K/L [facility] # Eos 0.18 0.04 - 0.54 K/L [facility] # Baso 0.04 0.01 - 0.08 K/L [facility] Immature Granulocytes-Relative 1 0 - 1 % [facility] Specimen Blood Performing Organization Address City/State/Zipcode Phone Number [facility] [address] [place] [address] [phone] CENTER IN colon (03/21/2019 4:30 PM CDT) Specimen Narrative Performed At FINAL REPORT [facility] Gastrografin enema CLINICAL HISTORY: Evaluate colonic stricture DISCUSSION: After the rectal tube is advanced into the rectum and the balloon inflated (performed by the technologist), Gastrografin is infused into the rectum in a retrograde fashion via gravity, until the cecum is opacified. Sequential fluoroscopic images of the colon are obtained by the radiologist, with additional overhead images obtained by the technologist. There is mild narrowing of the mid to distal descending colon, and sigmoid colon, which has an ahaustral appearance. Mild contour irregularity is noted at the colonic anastomosis. No evidence of bowel obstruction. Fluoroscopy time: 0.83 minutes Number of images obtained: 11 Signed: David Lopez MD Report Verified Date/Time:03/21/2019 17:42:21 Reading Location: [facility] C013X [facility] Consult Reading Room Procedure Note Interface, External Ris In - 03/21/2019 5:44 PM CDT FINAL REPORT Gastrografin enema CLINICAL HISTORY: Evaluate colonic stricture DISCUSSION: After the rectal tube is advanced into the rectum and the balloon inflated (performed by the technologist), Gastrografin is infused into the rectum in a retrograde fashion via gravity, until the cecum is opacified. Sequential fluoroscopic images of the colon are obtained by the radiologist, with additional overhead images obtained by the technologist. There is mild narrowing of the mid to distal descending colon, and sigmoid colon, which has an ahaustral appearance. Mild contour irregularity is noted at the colonic anastomosis. No evidence of bowel obstruction. Fluoroscopy time: 0.83 minutes Number of images obtained: 11 Signed: David Lopez MD Report Verified Date/Time: 03/21/2019 17:42:21 Reading Location: [facility] C013X Ortho Consult Reading Room Performing Organization Address City/[facility]/Zipcode Phone Number [email or web address] RIS ABORH, manual (03/18/2019 6:18 AM CDT) ABO Grouping O [facility] Rh Factor POS [facility] Specimen Blood Performing Organization Address City/[facility]/Zipcode Phone Number [facility] [address] [place] [address] CT abdomen/pelvis without iv contrast (03/17/2019 4:38 PM CDT) Specimen Narrative Performed At FINAL REPORT [facility] ABDOMINAL AND PELVIS CT DATED 03/17/2019 CLINICAL INFORMATION:Abdominal pain, unspecified large prolapse, eval anatomy for potential ileostomy revision TECHNIQUE:Axial images of the abdomen and pelvis were obtained from diaphragm to the pubic symphysis without GI or intravenous contrast. This exam was performed according to our departmental dose-optimization program, which includes automated exposure control, adjustment of the mA and/or kV according to patient size and/or use of interactive reconstruction technique. COMMENT: Liver and spleen are normal in size without focal abnormality.Gallbladder is contracted. No gallstone or biliary dilatation is noted. Pancreas and adrenals are unremarkable. Both kidneys are normal in size. No hydronephrosis, hydroureter, urolithiasis is seen. The small and large bowel are suboptimally evaluated secondary to lack of GI and intravenous contrast. Right mid abdominal hernia is present with herniation a segment of the small bowel, omentum, and ascitic fluid. There is nonspecific wall thickening in the descending and sigmoid colon. No small or large bowel dilatation is apparent. Appendix is not visualized. Prostate is normal in size. The urinary bladder is contracted. No mass, adenopathy or ascites is present. IMPRESSION: 1. Large right mid abdominal hernia with herniation a segment of the small bowel, omentum, and ascites fluid. 2. No mechanical obstruction or ileus. 3. Nonspecific wall thickening in the descending and sigmoid colon secondary to nondistention or colitis. Signed: Amberly Munroe MD Report Verified Date/Time:03/17/2019 17:04:19 Reading Location: [facility] C013Y CT Body Reading Room Procedure Note Interface, External Ris In - 03/17/2019 5:06 PM CDT FINAL REPORT ABDOMINAL AND PELVIS CT DATED 03/17/2019 CLINICAL INFORMATION: Abdominal pain, unspecified large prolapse, eval anatomy for potential ileostomy revision TECHNIQUE: Axial images of the abdomen and pelvis were obtained from diaphragm to the pubic symphysis without GI or intravenous contrast. This exam was performed according to our departmental dose-optimization program, which includes automated exposure control, adjustment of the mA and/or kV according to patient size and/or use of interactive reconstruction technique. COMMENT: Liver and spleen are normal in size without focal abnormality. Gallbladder is contracted. No gallstone or biliary dilatation is noted. Pancreas and adrenals are unremarkable. Both kidneys are normal in size. No hydronephrosis, hydroureter, urolithiasis is seen. The small and large bowel are suboptimally evaluated secondary to lack of GI and intravenous contrast. Right mid abdominal hernia is present with herniation a segment of the small bowel, omentum, and ascitic fluid. There is nonspecific wall thickening in the descending and sigmoid colon. No small or large bowel dilatation is apparent. Appendix is not visualized. Prostate is normal in size. The urinary bladder is contracted. No mass, adenopathy or ascites is present. IMPRESSION: 1. Large right mid abdominal hernia with herniation a segment of the small bowel, omentum, and ascites fluid. 2. No mechanical obstruction or ileus. 3. Nonspecific wall thickening in the descending and sigmoid colon secondary to nondistention or colitis. Signed: Amberly Munroe MD Report Verified Date/Time: 03/17/2019 17:04:19 Reading Location: [facility] B1 C013Y CT Body Reading Room Performing Organization Address City/State/Zipcode Phone Number [facility] RIS after 04/01/2018 Advance Directives For more information, please contact:[address] [place], [place] [phone] Code Status Date Activated Date Inactivated Comments Full Code 03/17/2019 12:08 PM 04/01/2019 8:31 PM This code status was determined by: Patient
--- OUTSIDE RECORDS SUMMARY | 2019-04-02 09:57 | XMS REPORT ---
:1970 [facility] [address] [place] [address] Care Team Providers Name Role Phone UNKNOWN, REFFERING Primary Care Provider Unavailable MELA DAVIS Unavailable Unavailable VANIA PERAZA Unavailable Unavailable Problems This patient has no known problems. Allergies, Adverse Reactions, Alerts This patient has no known allergies or adverse reactions. Medications This patient has no known medications. Encounters Start End Encounter Admission Attending Care Care Encounter Date/Time Date/Time Type Type Clinicians Facility Department ID 2017-11-02 2017-11-02 Emergency E [facility] MED [id number] 08:33:00 08:33:00 2017-08-05 2017-08-05 Outpatient [facility] [id number] 00:00:00 00:00:00 2017-07-28 2017-07-28 Outpatient [facility] [id number] 00:00:00 00:00:00 2017-06-24 2017-06-24 Outpatient [facility] [id number] 00:00:00 00:00:00 2017-06-22 2017-06-22 Emergency [facility] [id number] 21:37:29 21:37:29 2017-06-22 2017-06-22 Emergency [facility] [id number] 21:06:00 21:06:00 2017-06-22 2017-06-22 Outpatient [facility] [id number] 10:02:31 10:02:31 2017-06-09 2017-06-09 Outpatient [facility] [id number] 00:00:00 00:00:00 2017-06-09 2017-06-09 Outpatient [facility] [id number] 00:00:00 00:00:00 2017-05-08 2017-05-08 Emergency [facility] MED [id number] 01:04:44 01:04:44 2017-05-05 2017-05-05 Emergency E [facility] MED [id number] 08:11:00 08:11:00 2017-04-15 2017-04-15 Emergency E [facility] MED [id number] 09:53:00 09:53:00 2017-04-14 2017-04-14 Outpatient [facility] [id number] 13:31:02 13:31:02 Results Test Description Test Time Test Comments Text Results Atomic Results Result Comments PHOSPHORUS 2019-04-01 05:49:00 Test Item Value Reference Range Comments PHOSPHORUS (BEAKER) (test bvfb=991) 2.5 mg/dL 2.3-4.7 [id number] 05:49:00 Test Item Value Reference Range Comments MAGNESIUM (BEAKER) (test bulf=625) 1.7 mg/dL 1.6-2.6 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 [id number] 05:49:00 Test Item Value Reference Range Comments SODIUM (BEAKER) (test 137 meq/L 136-145 xaki=852) POTASSIUM (BEAKER) (test 3.3 meq/L 3.5-5.1 yjxv=488) CHLORIDE (BEAKER) (test 101 meq/L 98-107 qczg=561) CO2 (BEAKER) (test 24 meq/L 22-29 luqc=003) BLOOD UREA NITROGEN 6 mg/dL 7-21 (BEAKER) (test ghms=765) CREATININE (BEAKER) (test 0.72 mg/dL 0.57-1.25 rvdd=426) GLUCOSE RANDOM (BEAKER) 82 mg/dL 70-105 (test lmny=137) CALCIUM (BEAKER) (test 8.0 mg/dL 8.4-10.2 yfqw=677) EGFR (BEAKER) (test 116 mL/min/1.73 sq m ESTIMATED GFR IS NOT wtdj=6502) ACCURATE CREATININE CLEARANCE IN PREDICTING GLOMERULAR FILTRATION RATE. ESTIMATED GFR IS NOT APPLICABLE FOR DIALYSIS PATIENTS. CBC (HEMOGRAM ONLY)2019-04-01 05:17:00 Test Item Value Reference Range Comments WHITE BLOOD CELL COUNT (BEAKER) (test nwvt=361) 5.6 K/ L 3.5-10.5 RED BLOOD CELL COUNT (BEAKER) (test ibbu=199) 3.28 M/ L 4.63-6.08 HEMOGLOBIN (BEAKER) (test cvzw=659) 9.7 GM/DL 13.7-17.5 HEMATOCRIT (BEAKER) (test oism=325) 29.9 % 40.1-51.0 MEAN CORPUSCULAR VOLUME (BEAKER) (test mdwb=543) 91.2 fL 79.0-92.2 MEAN CORPUSCULAR HEMOGLOBIN (BEAKER) (test 29.6 pg 25.7-32.2 daxo=946) MEAN CORPUSCULAR HEMOGLOBIN CONC (BEAKER) (test 32.4 GM/DL 32.3-36.5 arqs=411) RED CELL DISTRIBUTION WIDTH (BEAKER) (test 12.9 % 11.6-14.4 rbzf=238) PLATELET COUNT (BEAKER) (test oxok=380) 374 K/CU MM 150-450 MEAN PLATELET VOLUME (BEAKER) (test vpzw=363) 9.8 fL 9.4-12.4 NUCLEATED RED BLOOD CELLS (BEAKER) (test 0 /100 WBC 0-0 fzep=541) 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 [id number] 06:19:00 Test Item Value Reference Range Comments SODIUM (BEAKER) (test 138 meq/L 136-145 yaan=134) POTASSIUM (BEAKER) (test 3.5 meq/L 3.5-5.1 Specimen slightly eswi=286) hemolyzed CHLORIDE (BEAKER) (test 103 meq/L 98-107 kodq=448) CO2 (BEAKER) (test 24 meq/L 22-29 dxdf=918) BLOOD UREA NITROGEN 7 mg/dL 7-21 (BEAKER) (test swdv=228) CREATININE (BEAKER) (test 0.73 mg/dL 0.57-1.25 Specimen slightly kcuk=171) hemolyzed GLUCOSE RANDOM (BEAKER) 101 mg/dL 70-105 (test pxba=785) CALCIUM (BEAKER) (test 7.9 mg/dL 8.4-10.2 abmj=734) EGFR (BEAKER) (test 114 mL/min/1.73 sq m ESTIMATED GFR IS NOT smcj=9578) ACCURATE CREATININE CLEARANCE IN PREDICTING GLOMERULAR FILTRATION RATE. ESTIMATED GFR IS NOT APPLICABLE FOR DIALYSIS PATIENTS. [id number] 06:10:00 Test Item Value Reference Range Comments MAGNESIUM (BEAKER) (test 1.8 mg/dL 1.6-2.6 Specimen slightly hemolyzed fjky=300) [id number] 06:10:00 Test Item Value Reference Range Comments PHOSPHORUS (BEAKER) (test 2.5 mg/dL 2.3-4.7 Specimen slightly hemolyzed ciqg=196) CBC (HEMOGRAM ONLY)2019-03-31 05:55:00 Test Item Value Reference Range Comments WHITE BLOOD CELL COUNT (BEAKER) (test alfk=000) 6.9 K/ L 3.5-10.5 RED BLOOD CELL COUNT (BEAKER) (test mkxq=443) 3.19 M/ L 4.63-6.08 HEMOGLOBIN (BEAKER) (test oifs=496) 9.5 GM/DL 13.7-17.5 HEMATOCRIT (BEAKER) (test xbjp=248) 29.1 % 40.1-51.0 MEAN CORPUSCULAR VOLUME (BEAKER) (test vgft=378) 91.2 fL 79.0-92.2 MEAN CORPUSCULAR HEMOGLOBIN (BEAKER) (test 29.8 pg 25.7-32.2 ipfd=931) MEAN CORPUSCULAR HEMOGLOBIN CONC (BEAKER) (test 32.6 GM/DL 32.3-36.5 cita=762) RED CELL DISTRIBUTION WIDTH (BEAKER) (test 13.2 % 11.6-14.4 nqvz=355) PLATELET COUNT (BEAKER) (test dpfn=276) 397 K/CU MM 150-450 MEAN PLATELET VOLUME (BEAKER) (test rgje=573) 9.7 fL 9.4-12.4 NUCLEATED RED BLOOD CELLS (BEAKER) (test 0 /100 WBC 0-0 hitv=347) CBC (HEMOGRAM ONLY)2019-03-30 05:17:00 Test Item Value Reference Range Comments WHITE BLOOD CELL COUNT (BEAKER) (test mhbs=277) 6.6 K/ L 3.5-10.5 RED BLOOD CELL COUNT (BEAKER) (test nnqg=288) 3.24 M/ L 4.63-6.08 HEMOGLOBIN (BEAKER) (test ogke=295) 9.5 GM/DL 13.7-17.5 HEMATOCRIT (BEAKER) (test xosy=821) 29.7 % 40.1-51.0 MEAN CORPUSCULAR VOLUME (BEAKER) (test dioe=341) 91.7 fL 79.0-92.2 MEAN CORPUSCULAR HEMOGLOBIN (BEAKER) (test 29.3 pg 25.7-32.2 lzcm=592) MEAN CORPUSCULAR HEMOGLOBIN CONC (BEAKER) (test 32.0 GM/DL 32.3-36.5 yylq=572) RED CELL DISTRIBUTION WIDTH (BEAKER) (test 12.8 % 11.6-14.4 ykgq=102) PLATELET COUNT (BEAKER) (test egif=328) 342 K/CU MM 150-450 MEAN PLATELET VOLUME (BEAKER) (test odxj=434) 9.9 fL 9.4-12.4 NUCLEATED RED BLOOD CELLS (BEAKER) (test 0 /100 WBC 0-0 sqhn=248) 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 [id number] 04:57:00 Test Item Value Reference Range Comments SODIUM (BEAKER) (test 134 meq/L 136-145 fxlh=730) POTASSIUM (BEAKER) (test 3.6 meq/L 3.5-5.1 ucnq=057) CHLORIDE (BEAKER) (test 100 meq/L 98-107 nvjq=890) CO2 (BEAKER) (test 22 meq/L 22-29 sxhd=300) BLOOD UREA NITROGEN 7 mg/dL 7-21 (BEAKER) (test mnid=443) CREATININE (BEAKER) (test 0.74 mg/dL 0.57-1.25 wpvf=793) GLUCOSE RANDOM (BEAKER) 72 mg/dL 70-105 (test rkdh=208) CALCIUM (BEAKER) (test 7.8 mg/dL 8.4-10.2 mizw=939) EGFR (BEAKER) (test 112 mL/min/1.73 sq m ESTIMATED GFR IS NOT jmdn=0230) ACCURATE CREATININE CLEARANCE IN PREDICTING GLOMERULAR FILTRATION RATE. ESTIMATED GFR IS NOT APPLICABLE FOR DIALYSIS PATIENTS. [id number] 04:55:00 Test Item Value Reference Range Comments PHOSPHORUS (BEAKER) (test hypx=261) 2.6 mg/dL 2.3-4.7 [id number] 04:55:00 Test Item Value Reference Range Comments MAGNESIUM (BEAKER) (test wjql=787) 1.8 mg/dL 1.6-2.6 CT, [id number] 14:16:00FINAL REPORT TECHNIQUE: CT of the abdomen and pelvis WITH intravenous contrast and WITHOUT oral contrast. Dose modulation, iterative reconstruction, and/or weight-based adjustment of the mA/kV was utilized to reduce the radiation dose to as low as reasonably achievable. INDICATION: 49-year-old man with ileus or small bowel traction. COMPARISON: Abdomen and pelvis CT 03/17/2019.FINDINGS: LOWER THORAX: Trace bilateral pleural effusions, left greater than right, with adjacent relaxation atelectasis. HEPATOBILIARY: No focal hepatic lesions. Gallbladder is unremarkable. No biliary ductal dilatation.SPLEEN: No splenomegaly.PANCREAS: No focal masses or ductal dilatation. ADRENALS:No adrenal nodules.KIDNEYS/URETERS: No hydronephrosis, stones, or solid mass lesions.PELVIC ORGANS/BLADDER: The bladder is decompressed by Zepeda catheter. Trace air in the bladder lumen, likely from catheterization. Prostate and seminal vesicles are grossly unremarkable. PERITONEUM/RETROPERITONEUM: Small amount of free air and free fluid. Stranding within the mesenteric fat which underlies the prior ileostomy site.LYMPH NODES: No lymphadenopathy.VESSELS: Unremarkable. GI TRACT: Recent ileostomy takedown. The colon and small bowel are distended, the transverse colon is distended up to 14.6 cm in diameter and the small bowel is distended up to 9.5 cm in diameter, within apparent abrupt change in caliber in the sigmoid. No bowel wall thickening. BONES AND SOFT TISSUES: Unremarkable. IMPRESSION:Distended colon and small bowel with an apparent abrupt change in bowel caliber at the sigmoid. Ileus is favored, however bowel obstruction cannot be entirely excluded. Small amount of pneumoperitoneum and ascites, likely from recent surgery. Focal fat stranding in the region of prior ileostomy site likelyrepresents postsurgical change. Signed: Marsha Kim MDReport Verified Date/Time: 03/29/2019 14:16:01 Reading Location: [facility] C013Y CT Body Reading Room RAD, ABDOMEN/KUB, 1 VIEW [id number] 10:23:00Reason for exam:->evaluate ileusFINAL REPORT Technique: Supine radiographs of the abdomen dated 03/29/2019. HISTORY: Evaluate ileus. COMPARISON: Abdominal radiographs dated 03/28/2019 IMPRESSION:There has been no change in the distention of the bowel when compared to prior study. Previously seen pneumoperitoneum has resolved. No abnormal soft tissue mass. Surgical skin carmenza are seen along the midline. No fracture. Signed: Nuria Urbinaeport Verified Date/Time: 03/29/2019 10:23:29 Reading Location: [facility] Reading Room Electronically signed by: NURIA URBINA MD on 2018 10:23 AMCBC (HEMOGRAM ONLY)2019-03-29 08:10:00 Test Item Value Reference Range Comments WHITE BLOOD CELL COUNT (BEAKER) (test nnuo=686) 6.9 K/ L 3.5-10.5 RED BLOOD CELL COUNT (BEAKER) (test tbwn=959) 3.21 M/ L 4.63-6.08 HEMOGLOBIN (BEAKER) (test qfcs=104) 9.4 GM/DL 13.7-17.5 HEMATOCRIT (BEAKER) (test aiuu=445) 29.7 % 40.1-51.0 MEAN CORPUSCULAR VOLUME (BEAKER) (test lreg=708) 92.5 fL 79.0-92.2 MEAN CORPUSCULAR HEMOGLOBIN (BEAKER) (test 29.3 pg 25.7-32.2 ffjr=250) MEAN CORPUSCULAR HEMOGLOBIN CONC (BEAKER) (test 31.6 GM/DL 32.3-36.5 hrwh=137) RED CELL DISTRIBUTION WIDTH (BEAKER) (test 13.0 % 11.6-14.4 lway=007) PLATELET COUNT (BEAKER) (test zltk=410) 312 K/CU MM 150-450 MEAN PLATELET VOLUME (BEAKER) (test emjn=072) 9.4 fL 9.4-12.4 NUCLEATED RED BLOOD CELLS (BEAKER) (test 0 /100 WBC 0-0 agaq=440) [id number] 06:20:00 Test Item Value Reference Range Comments PHOSPHORUS (BEAKER) (test stgk=038) 2.6 mg/dL 2.3-4.7 [id number] 06:20:00 Test Item Value Reference Range Comments MAGNESIUM (BEAKER) (test awus=848) 2.0 mg/dL 1.6-2.6 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 [id number] 06:20:00 Test Item Value Reference Range Comments SODIUM (BEAKER) (test 135 meq/L 136-145 mnoa=807) POTASSIUM (BEAKER) (test 3.6 meq/L 3.5-5.1 wxnt=915) CHLORIDE (BEAKER) (test 99 meq/L 98-107 pkam=473) CO2 (BEAKER) (test 24 meq/L 22-29 xlwt=758) BLOOD UREA NITROGEN 9 mg/dL 7-21 (BEAKER) (test acme=190) CREATININE (BEAKER) (test 0.78 mg/dL 0.57-1.25 lcvc=808) GLUCOSE RANDOM (BEAKER) 71 mg/dL 70-105 (test wvis=159) CALCIUM (BEAKER) (test 8.0 mg/dL 8.4-10.2 ahsx=258) EGFR (BEAKER) (test 106 mL/min/1.73 sq m ESTIMATED GFR IS NOT poqp=3878) ACCURATE CREATININE CLEARANCE IN PREDICTING GLOMERULAR FILTRATION RATE. ESTIMATED GFR IS NOT APPLICABLE FOR DIALYSIS PATIENTS. RAD, ABDOMEN SERIES W/ UPRIGHT PA [id number] 22:18:00Reason for exam:-> eval ileusFINAL REPORT CLINICAL HISTORY: eval ileus EXAMINATION: RAD, ABDOMEN SERIES W/UPRIGHT PA CHEST COMPARISON: Plain radiograph the abdomen, [...] mid abdomen. Osseous structures are grossly unremarkable. Impression:Small volume pneumoperitoneum is likely postsurgical. Unchanged diffuse distended loops of small and large bowel within the abdomenwith no distal decompressed bowel which suggests ileus over obstruction. However if there is persistent clinical concern recommend further evaluation with CT abdomen pelvis. Signed: Abraham Bethea Verified Date/Time: 03/28/2019 22:18:50 RAD, ABDOMEN/KUB, 1 VIEW [id number] 11:23:00Reason for exam:->abdominal distensionShould this be performed at the bedside?->YesFINAL REPORT RAD , ABDOMEN/KUB, 1 VIEW AP CLINICAL INDICATION: abdominal distension COMPARISON: CT 03/17/2019 TECHNIQUE: AP supine view of the abdomen FINDINGS: Markedly distended stomach, small bowel, and colonic loops. The small bowel loops are somewhat featureless with mural thickening. No pneumatosis. Supine positioning limits evaluation for free air. IMPRESSION:Diffuse distended bowel loops with mural thickening, suggestive of ileus or obstruction. No focal transition pointis identified. Signed: Candido Cruzeport Verified Date/Time: 2018 11:23:34 Reading Location: [facility] Radiology Reading Room Electronically signed by: CANDIDO CRUZ MD on03/28/2019 11:23 AMTISSUE [id number] 09:00:00Surgical Pathology Report Case: [id number] Authorizing Provider: Graciela Garrison MD Collected: 03/25/2019 1133 Ordering Location: [facility] PERIOPERATIVE Received: 03/25/2019 1527 SERVICES Pathologist: Joradn Celaya MD Specimens: A) - Ileostomy, end ileostomy B) -Appendix A. SMALL BOWEL, END ILEOSTOMY, TAKEDOWN: - ENTERIC WALL WITH ULCERATION, TRANSMURAL ACUTE INFLAMMATION, NECROSIS AND FOCAL INFLAMMATORY CHANGES CONSISTENT WITH DIVERSION COLITIS - VIABLE MARGINS - NEGATIVE FOR DYSPLASIA OR MALIGNANCYB. APPENDIX, APPENDECTOMY: - APPENDIX WITH NO SIGNIFICANT DIAGNOSTIC ABNORMALITY - NEGATIVE FOR MALIGNANCY Signing Pathologist Direct Phone Line: [phone] and postop diagnosis: ileostomy statusA. End ileostomy; B. Appendix A. Received fresh labeled with the patient's name, accession number and "end ileostomy" is an unoriented segment of small bowel measuring 4 cm in length and 5 cm in diameter with a minimal amount of attached mesentery. Also received is a second segment of unoriented smallbowel measuring 3 cm in length and ranging 1.7-5.5 cm in diameter which has a small amount of mesentery with a focal area of necrosis and hemorrhage. Each segment of small bowel is opened to reveal focal areas of submucosal hemorrhage. In the area of dilatation of the second mentioned segment of smallbowel are focal areas of mucosal hemorrhage. Skin is not grossly identified on either segment. The mucosa is slightly edematous. No gross lesions are identified. Lymph nodes are not identified in the mesentery. Vaccine Manager sections are submitted. Section code: A, outside sales representative section of each end of first mentioned segment of small bowel; A2 , outside sales representative of first mentioned segment of small bowel mucosa; A3, area of hemorrhagic mesentery of second mentioned segment of mucosa; A4, outside sales representative of hemorrhagic mucosa at open end of second portion of small bowel; A5, outside sales representative of stapled margin from second mentioned segment of small bowel, en face. B. Received fresh labeled with the patient's name, accession number and "appendix" is an intact appendix measuring 3.5 cm in length and 0.6 cm in diameter which has a moderate amount of attached mesoappendix. The serosa is pink and smooth. The proximal end is cauterized. The specimen is serially sectioned to reveal a abad, smooth mucosa. No fecaliths are present. The wall thickness is 0.2 cm. No gross lesions are identified. Vaccine Manager sections are submitted. Section code: B1, proximal margin en face and tip; B2, outside sales representative cross section. CG/pl Performed.[id number] 06:23:00 Test Item Value Reference Range Comments PHOSPHORUS (BEAKER) (test zvfw=343) 2.7 mg/dL 2.3-4.7 [id number] 06:23:00 Test Item Value Reference Range Comments MAGNESIUM (BEAKER) (test xmqu=231) 1.9 mg/dL 1.6-2.6 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 [id number] 06:23:00 Test Item Value Reference Range Comments SODIUM (BEAKER) (test 136 meq/L 136-145 oysa=853) POTASSIUM (BEAKER) (test 3.4 meq/L 3.5-5.1 smbi=557) CHLORIDE (BEAKER) (test 99 meq/L 98-107 fdfr=297) CO2 (BEAKER) (test 27 meq/L 22-29 bjvl=391) BLOOD UREA NITROGEN 9 mg/dL 7-21 (BEAKER) (test xqyc=796) CREATININE (BEAKER) (test 0.85 mg/dL 0.57-1.25 mjsa=981) GLUCOSE RANDOM (BEAKER) 80 mg/dL 70-105 (test slgp=626) CALCIUM (BEAKER) (test 8.4 mg/dL 8.4-10.2 ntet=802) EGFR (BEAKER) (test 96 mL/min/1.73 sq m ESTIMATED GFR IS NOT qqvj=0625) ACCURATE CREATININE CLEARANCE IN PREDICTING GLOMERULAR FILTRATION RATE. ESTIMATED GFR IS NOT APPLICABLE FOR DIALYSIS PATIENTS. [id number] 08:20:00 Test Item Value Reference Range Comments PHOSPHORUS (BEAKER) (test opcb=416) 2.6 mg/dL 2.3-4.7 [id number] 08:20:00 Test Item Value Reference Range Comments MAGNESIUM (BEAKER) (test oznj=358) 1.8 mg/dL 1.6-2.6 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 [id number] 08:20:00 Test Item Value Reference Range Comments SODIUM (BEAKER) (test 135 meq/L 136-145 xixg=792) POTASSIUM (BEAKER) (test 3.8 meq/L 3.5-5.1 cawy=121) CHLORIDE (BEAKER) (test 101 meq/L 98-107 athq=886) CO2 (BEAKER) (test 28 meq/L 22-29 vfpo=114) BLOOD UREA NITROGEN 12 mg/dL 7-21 (BEAKER) (test lnyd=616) CREATININE (BEAKER) (test 0.89 mg/dL 0.57-1.25 dzyu=029) GLUCOSE RANDOM (BEAKER) 87 mg/dL 70-105 (test rjxt=689) CALCIUM (BEAKER) (test 8.1 mg/dL 8.4-10.2 jbpt=061) EGFR (BEAKER) (test 91 mL/min/1.73 sq m ESTIMATED GFR IS NOT dpgq=9130) ACCURATE CREATININE CLEARANCE IN PREDICTING GLOMERULAR FILTRATION RATE. ESTIMATED GFR IS NOT APPLICABLE FOR DIALYSIS PATIENTS. [id number] 06:06:00 Test Item Value Reference Range Comments PHOSPHORUS (BEAKER) (test ewlc=935) 4.1 mg/dL 2.3-4.7 [id number] 06:06:00 Test Item Value Reference Range Comments MAGNESIUM (BEAKER) (test eedx=738) 1.8 mg/dL 1.6-2.6 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 [id number] 06:06:00 Test Item Value Reference Range Comments SODIUM (BEAKER) (test 136 meq/L 136-145 hkqh=599) POTASSIUM (BEAKER) (test 4.5 meq/L 3.5-5.1 vwhv=365) CHLORIDE (BEAKER) (test 106 meq/L 98-107 nbsh=917) CO2 (BEAKER) (test 25 meq/L 22-29 lvnu=778) BLOOD UREA NITROGEN 16 mg/dL 7-21 (BEAKER) (test jmnq=580) CREATININE (BEAKER) (test 1.04 mg/dL 0.57-1.25 hlhc=678) GLUCOSE RANDOM (BEAKER) 108 mg/dL 70-105 (test snbg=051) CALCIUM (BEAKER) (test 8.3 mg/dL 8.4-10.2 ylvp=164) EGFR (BEAKER) (test 76 mL/min/1.73 sq m ESTIMATED GFR IS NOT mhkz=1289) ACCURATE CREATININE CLEARANCE IN PREDICTING GLOMERULAR FILTRATION RATE. ESTIMATED GFR IS NOT APPLICABLE FOR DIALYSIS PATIENTS. [id number] 06:03:00 Test Item Value Reference Range Comments PHOSPHORUS (BEAKER) (test ngdl=615) 4.2 mg/dL 2.3-4.7 [id number] 06:03:00 Test Item Value Reference Range Comments MAGNESIUM (BEAKER) (test iooa=848) 2.0 mg/dL 1.6-2.6 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 [id number] 06:03:00 Test Item Value Reference Range Comments SODIUM (BEAKER) (test 136 meq/L 136-145 drwf=888) POTASSIUM (BEAKER) (test 3.9 meq/L 3.5-5.1 yqik=782) CHLORIDE (BEAKER) (test 104 meq/L 98-107 tvtc=308) CO2 (BEAKER) (test 23 meq/L 22-29 bibe=981) BLOOD UREA NITROGEN 11 mg/dL 7-21 (BEAKER) (test ysji=477) CREATININE (BEAKER) (test 1.01 mg/dL 0.57-1.25 vfmo=351) GLUCOSE RANDOM (BEAKER) 88 mg/dL 70-105 (test rsfp=323) CALCIUM (BEAKER) (test 9.2 mg/dL 8.4-10.2 fmgq=058) EGFR (BEAKER) (test 79 mL/min/1.73 sq m ESTIMATED GFR IS NOT ioqt=4216) ACCURATE CREATININE CLEARANCE IN PREDICTING GLOMERULAR FILTRATION RATE. ESTIMATED GFR IS NOT APPLICABLE FOR DIALYSIS PATIENTS. CBC (HEMOGRAM ONLY)2019-03-25 05:40:00 Test Item Value Reference Range Comments WHITE BLOOD CELL COUNT (BEAKER) (test bswi=831) 4.8 K/ L 3.5-10.5 RED BLOOD CELL COUNT (BEAKER) (test qvmu=731) 4.10 M/ L 4.63-6.08 HEMOGLOBIN (BEAKER) (test ngzo=168) 12.1 GM/DL 13.7-17.5 HEMATOCRIT (BEAKER) (test jbaq=749) 36.6 % 40.1-51.0 MEAN CORPUSCULAR VOLUME (BEAKER) (test edtn=458) 89.3 fL 79.0-92.2 MEAN CORPUSCULAR HEMOGLOBIN (BEAKER) (test 29.5 pg 25.7-32.2 xfjf=396) MEAN CORPUSCULAR HEMOGLOBIN CONC (BEAKER) (test 33.1 GM/DL 32.3-36.5 toxl=686) RED CELL DISTRIBUTION WIDTH (BEAKER) (test 13.2 % 11.6-14.4 rmqa=974) PLATELET COUNT (BEAKER) (test cufd=443) 285 K/CU MM 150-450 MEAN PLATELET VOLUME (BEAKER) (test vedw=647) 9.4 fL 9.4-12.4 NUCLEATED RED BLOOD CELLS (BEAKER) (test 0 /100 WBC 0-0 vznx=832) [id number] 05:52:00 Test Item Value Reference Range Comments PHOSPHORUS (BEAKER) (test ovqo=982) 4.2 mg/dL 2.3-4.7 [id number] 05:52:00 Test Item Value Reference Range Comments MAGNESIUM (BEAKER) (test oymj=587) 1.9 mg/dL 1.6-2.6 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 [id number] 05:52:00 Test Item Value Reference Range Comments SODIUM (BEAKER) (test 136 meq/L 136-145 ednm=833) POTASSIUM (BEAKER) (test 3.9 meq/L 3.5-5.1 bjal=862) CHLORIDE (BEAKER) (test 103 meq/L 98-107 icgf=680) CO2 (BEAKER) (test 27 meq/L 22-29 dhjy=489) BLOOD UREA NITROGEN 14 mg/dL 7-21 (BEAKER) (test ogvs=602) CREATININE (BEAKER) (test 0.91 mg/dL 0.57-1.25 jszc=121) GLUCOSE RANDOM (BEAKER) 85 mg/dL 70-105 (test jtog=581) CALCIUM (BEAKER) (test 8.7 mg/dL 8.4-10.2 boyu=549) EGFR (BEAKER) (test 89 mL/min/1.73 sq m ESTIMATED GFR IS NOT lcvx=2117) ACCURATE CREATININE CLEARANCE IN PREDICTING GLOMERULAR FILTRATION RATE. ESTIMATED GFR IS NOT APPLICABLE FOR DIALYSIS PATIENTS. [id number] 06:51:00 Test Item Value Reference Range Comments PHOSPHORUS (BEAKER) (test txiu=261) 4.3 mg/dL 2.3-4.7 [id number] 06:51:00 Test Item Value Reference Range Comments MAGNESIUM (BEAKER) (test thdt=560) 2.0 mg/dL 1.6-2.6 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 [id number] 06:51:00 Test Item Value Reference Range Comments SODIUM (BEAKER) (test 137 meq/L 136-145 zvdt=661) POTASSIUM (BEAKER) (test 4.0 meq/L 3.5-5.1 uutq=992) CHLORIDE (BEAKER) (test 107 meq/L 98-107 wubq=552) CO2 (BEAKER) (test 25 meq/L 22-29 rdws=946) BLOOD UREA NITROGEN 19 mg/dL 7-21 (BEAKER) (test jydy=678) CREATININE (BEAKER) (test 0.88 mg/dL 0.57-1.25 tsld=858) GLUCOSE RANDOM (BEAKER) 91 mg/dL 70-105 (test aapo=413) CALCIUM (BEAKER) (test 8.9 mg/dL 8.4-10.2 emwt=065) EGFR (BEAKER) (test 92 mL/min/1.73 sq m ESTIMATED GFR IS NOT zdfo=2679) ACCURATE CREATININE CLEARANCE IN PREDICTING GLOMERULAR FILTRATION RATE. ESTIMATED GFR IS NOT APPLICABLE FOR DIALYSIS PATIENTS. CBC (HEMOGRAM ONLY)2019-03-23 06:07:00 Test Item Value Reference Range Comments WHITE BLOOD CELL COUNT (BEAKER) (test xpjb=577) 5.0 K/ L 3.5-10.5 RED BLOOD CELL COUNT (BEAKER) (test byxs=026) 3.76 M/ L 4.63-6.08 HEMOGLOBIN (BEAKER) (test iqhx=557) 11.4 GM/DL 13.7-17.5 HEMATOCRIT (BEAKER) (test gsht=855) 34.4 % 40.1-51.0 MEAN CORPUSCULAR VOLUME (BEAKER) (test nflf=417) 91.5 fL 79.0-92.2 MEAN CORPUSCULAR HEMOGLOBIN (BEAKER) (test 30.3 pg 25.7-32.2 wnuu=632) MEAN CORPUSCULAR HEMOGLOBIN CONC (BEAKER) (test 33.1 GM/DL 32.3-36.5 lhre=202) RED CELL DISTRIBUTION WIDTH (BEAKER) (test 13.5 % 11.6-14.4 rkqm=078) PLATELET COUNT (BEAKER) (test jtcf=414) 241 K/CU MM 150-450 MEAN PLATELET VOLUME (BEAKER) (test rtmc=607) 9.7 fL 9.4-12.4 NUCLEATED RED BLOOD CELLS (BEAKER) (test 0 /100 WBC 0-0 typx=418) TISSUE [id number] 11:50:00Surgical Pathology Report Case: [id number] Authorizing Provider: Mela Davis MD Collected: 03/18/2019 1827 Ordering Location: [facility] Received: 03/21/2019 0823 SERVICES Pathologist: Jordan Celaya MD Specimen: Small Bowel, NOS A. SMALL BOWEL, ILEOSTOMY PROLAPSE , TAKEDOWN: - ANASTOMOSIS SITE WITH ACTIVE CHRONIC INFLAMMATION AND FOCAL ISCHEMIC CHANGES - MUCOSAL RESECTION MARGINS, NEGATIVE FOR MALIGNANCY - ONE BENIGN LYMPH NODE (0/1) - NEGATIVE FOR DYSPLASIA OR MALIGNANCY Signing Pathologist Direct Phone Line: [phone] signed by Jordan Celaya MD on 03/22/2019 at 11:50 [id number] of ileostomyReceived in a container labeled "small bowel" is a 48 cm long bowel segment with a diameter ranging from 2.5 to 5 cm. The attached adipose tissue measures 23 x 5 x 0.5 cm. The specimen is unoriented. Mucosal margin is opened with a diameter of 3.5 cm. The outer margin appears to be the ostomy stump with a diameter of 4.2 cm with abad-pink possible skin identified. Serosal surface is abad-pink and smooth. Serosal surface is abad-pink and smooth. The specimen is opened to show blood- filled lumen with abad-pink and hemorrhagic mucosa. The ostomy stump margin is serially sectioned to show underneath adipose tissue with no grossly identified lesions. Sectioning through the fat reveals two lymph nodes ranging from 0.5 to1.2 cm in greatest dimension. Vaccine Manager sections are submitted as follows : A1-A2, mucosal resection margin, en face; A3-A6, outside sales representative sections of the possible ostomy stump; A7-A11, serial outside sales representative sections from mucosal resection margin to the possible ostomy stump; A12, two lymph nodes. TH/ plPerformed.[id number] 06:58:00 Test Item Value Reference Range Comments PHOSPHORUS (BEAKER) (test jonj=942) 3.8 mg/dL 2.3-4.7 [id number] 06:58:00 Test Item Value Reference Range Comments MAGNESIUM (BEAKER) (test xdwg=592) 2.0 mg/dL 1.6-2.6 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 [id number] 06:58:00 Test Item Value Reference Range Comments SODIUM (BEAKER) (test 139 meq/L 136-145 pcro=417) POTASSIUM (BEAKER) (test 3.7 meq/L 3.5-5.1 dupj=354) CHLORIDE (BEAKER) (test 105 meq/L 98-107 ckwa=178) CO2 (BEAKER) (test 28 meq/L 22-29 ilya=235) BLOOD UREA NITROGEN 12 mg/dL 7-21 (BEAKER) (test azsv=357) CREATININE (BEAKER) (test 0.82 mg/dL 0.57-1.25 bdyz=403) GLUCOSE RANDOM (BEAKER) 93 mg/dL 70-105 (test fobd=696) CALCIUM (BEAKER) (test 8.8 mg/dL 8.4-10.2 hwtt=299) EGFR (BEAKER) (test 100 mL/min/1.73 sq m ESTIMATED GFR IS NOT leoa=0939) ACCURATE CREATININE CLEARANCE IN PREDICTING GLOMERULAR FILTRATION RATE. ESTIMATED GFR IS NOT APPLICABLE FOR DIALYSIS PATIENTS. CBC W/PLT COUNT & AUTO [id number] 05:42:00 Test Item Value Reference Range Comments WHITE BLOOD CELL COUNT (BEAKER) (test zqfm=781) 5.0 K/ L 3.5-10.5 RED BLOOD CELL COUNT (BEAKER) (test uren=398) 3.85 M/ L 4.63-6.08 HEMOGLOBIN (BEAKER) (test qlrf=879) 11.7 GM/DL 13.7-17.5 HEMATOCRIT (BEAKER) (test sekb=816) 34.8 % 40.1-51.0 MEAN CORPUSCULAR VOLUME (BEAKER) (test ytcz=831) 90.4 fL 79.0-92.2 MEAN CORPUSCULAR HEMOGLOBIN (BEAKER) (test 30.4 pg 25.7-32.2 lblv=633) MEAN CORPUSCULAR HEMOGLOBIN CONC (BEAKER) (test 33.6 GM/DL 32.3-36.5 jrqm=435) RED CELL DISTRIBUTION WIDTH (BEAKER) (test 13.7 % 11.6-14.4 czok=505) PLATELET COUNT (BEAKER) (test ckdo=107) 247 K/CU MM 150-450 MEAN PLATELET VOLUME (BEAKER) (test xlcm=793) 11.1 fL 9.4-12.4 NUCLEATED RED BLOOD CELLS (BEAKER) (test 0 /100 WBC 0-0 ptho=812) NEUTROPHILS RELATIVE PERCENT (BEAKER) (test 60 % khln=641) LYMPHOCYTES RELATIVE PERCENT (BEAKER) (test 26 % krap=281) MONOCYTES RELATIVE PERCENT (BEAKER) (test 9 % gizk=002) EOSINOPHILS RELATIVE PERCENT (BEAKER) (test 4 % itdu=456) BASOPHILS RELATIVE PERCENT (BEAKER) (test 1 % zcwh=366) NEUTROPHILS ABSOLUTE COUNT (BEAKER) (test 2.99 K/ L 1.78-5.38 hqxw=549) LYMPHOCYTES ABSOLUTE COUNT (BEAKER) (test 1.30 K/ L 1.32-3.57 yxfl=980) MONOCYTES ABSOLUTE COUNT (BEAKER) (test 0.47 K/ L 0.30-0.82 baye=593) EOSINOPHILS ABSOLUTE COUNT (BEAKER) (test 0.18 K/ L 0.04-0.54 fgdp=732) BASOPHILS ABSOLUTE COUNT (BEAKER) (test 0.04 K/ L 0.01-0.08 jplt=997) IMMATURE GRANULOCYTES-RELATIVE PERCENT (BEAKER) 1 % 0-1 (test xhui=4514) [place], [id number] 17:42:00Reason for exam:->evaluate for colon stricture as seen on CTFINAL REPORT Gastrografin enema CLINICAL HISTORY: Evaluate colonic stricture DISCUSSION: After the rectal tube is advanced into the rectum and the balloon inflated (performed bythe technologist) , Gastrografin is infused into the rectum in [...] of images obtained: 11 Signed: David Lopez Verified Date/Time: 03/21/2019 17:42:21 Reading Location: [facility] C013X [facility] Consult Reading Room [id number] 03:58:00 Test Item Value Reference Range Comments PHOSPHORUS (BEAKER) (test wghk=959) 3.0 mg/dL 2.3-4.7 [id number] 03:58:00 Test Item Value Reference Range Comments MAGNESIUM (BEAKER) (test oxsz=638) 2.0 mg/dL 1.6-2.6 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 [id number] 03:58:00 Test Item Value Reference Range Comments SODIUM (BEAKER) (test 137 meq/L 136-145 tijx=619) POTASSIUM (BEAKER) (test 4.0 meq/L 3.5-5.1 qqbx=449) CHLORIDE (BEAKER) (test 104 meq/L 98-107 cqzy=905) CO2 (BEAKER) (test 29 meq/L 22-29 xvod=628) BLOOD UREA NITROGEN 10 mg/dL 7-21 (BEAKER) (test besv=463) CREATININE (BEAKER) (test 0.85 mg/dL 0.57-1.25 lejb=567) GLUCOSE RANDOM (BEAKER) 96 mg/dL 70-105 (test rbui=275) CALCIUM (BEAKER) (test 8.0 mg/dL 8.4-10.2 pkxf=583) EGFR (BEAKER) (test 96 mL/min/1.73 sq m ESTIMATED GFR IS NOT ieum=6018) ACCURATE CREATININE CLEARANCE IN PREDICTING GLOMERULAR FILTRATION RATE. ESTIMATED GFR IS NOT APPLICABLE FOR DIALYSIS PATIENTS. CBC W/PLT COUNT & AUTO [id number] 03:20:00 Test Item Value Reference Range Comments WHITE BLOOD CELL COUNT (BEAKER) (test darf=801) 4.8 K/ L 3.5-10.5 RED BLOOD CELL COUNT (BEAKER) (test rwdz=469) 3.56 M/ L 4.63-6.08 HEMOGLOBIN (BEAKER) (test inwa=949) 10.7 GM/DL 13.7-17.5 HEMATOCRIT (BEAKER) (test xwys=392) 33.3 % 40.1-51.0 MEAN CORPUSCULAR VOLUME (BEAKER) (test djsf=436) 93.5 fL 79.0-92.2 MEAN CORPUSCULAR HEMOGLOBIN (BEAKER) (test 30.1 pg 25.7-32.2 xffr=652) MEAN CORPUSCULAR HEMOGLOBIN CONC (BEAKER) (test 32.1 GM/DL 32.3-36.5 whij=968) RED CELL DISTRIBUTION WIDTH (BEAKER) (test 13.5 % 11.6-14.4 acdv=885) PLATELET COUNT (BEAKER) (test qefv=095) 196 K/CU MM 150-450 MEAN PLATELET VOLUME (BEAKER) (test mqfw=527) 9.8 fL 9.4-12.4 NUCLEATED RED BLOOD CELLS (BEAKER) (test 0 /100 WBC 0-0 cnum=067) NEUTROPHILS RELATIVE PERCENT (BEAKER) (test 58 % mnmu=523) LYMPHOCYTES RELATIVE PERCENT (BEAKER) (test 27 % irrw=734) MONOCYTES RELATIVE PERCENT (BEAKER) (test 12 % epnx=091) EOSINOPHILS RELATIVE PERCENT (BEAKER) (test 2 % mgpe=685) BASOPHILS RELATIVE PERCENT (BEAKER) (test 1 % xzeu=596) NEUTROPHILS ABSOLUTE COUNT (BEAKER) (test 2.77 K/ L 1.78-5.38 qopz=170) LYMPHOCYTES ABSOLUTE COUNT (BEAKER) (test 1.29 K/ L 1.32-3.57 vjuw=339) MONOCYTES ABSOLUTE COUNT (BEAKER) (test 0.59 K/ L 0.30-0.82 uwex=690) EOSINOPHILS ABSOLUTE COUNT (BEAKER) (test 0.11 K/ L 0.04-0.54 phty=327) BASOPHILS ABSOLUTE COUNT (BEAKER) (test 0.03 K/ L 0.01-0.08 iiwe=595) IMMATURE GRANULOCYTES-RELATIVE PERCENT (BEAKER) 0 % 0-1 (test ssqr=8001) 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 [id number] 06:26:00 Test Item Value Reference Range Comments SODIUM (BEAKER) (test 134 meq/L 136-145 yvjs=171) POTASSIUM (BEAKER) (test 3.7 meq/L 3.5-5.1 isds=101) CHLORIDE (BEAKER) (test 103 meq/L 98-107 oily=572) CO2 (BEAKER) (test 26 meq/L 22-29 ipgo=384) BLOOD UREA NITROGEN 15 mg/dL 7-21 (BEAKER) (test jrvl=581) CREATININE (BEAKER) (test 0.84 mg/dL 0.57-1.25 geti=026) GLUCOSE RANDOM (BEAKER) 93 mg/dL 70-105 (test jdes=288) CALCIUM (BEAKER) (test 7.9 mg/dL 8.4-10.2 vobw=867) EGFR (BEAKER) (test 97 mL/min/1.73 sq m ESTIMATED GFR IS NOT nhey=7473) ACCURATE CREATININE CLEARANCE IN PREDICTING GLOMERULAR FILTRATION RATE. ESTIMATED GFR IS NOT APPLICABLE FOR DIALYSIS PATIENTS. [id number] 06:05:00 Test Item Value Reference Range Comments PHOSPHORUS (BEAKER) (test yvjn=427) 2.2 mg/dL 2.3-4.7 [id number] 06:05:00 Test Item Value Reference Range Comments MAGNESIUM (BEAKER) (test bqff=931) 2.0 mg/dL 1.6-2.6 CBC W/PLT COUNT & AUTO [id number] 05:25:00 Test Item Value Reference Range Comments WHITE BLOOD CELL COUNT (BEAKER) (test pptl=505) 5.9 K/ L 3.5-10.5 RED BLOOD CELL COUNT (BEAKER) (test dlup=615) 3.80 M/ L 4.63-6.08 HEMOGLOBIN (BEAKER) (test ozwp=946) 11.4 GM/DL 13.7-17.5 HEMATOCRIT (BEAKER) (test pnzb=111) 35.2 % 40.1-51.0 MEAN CORPUSCULAR VOLUME (BEAKER) (test vimj=088) 92.6 fL 79.0-92.2 MEAN CORPUSCULAR HEMOGLOBIN (BEAKER) (test 30.0 pg 25.7-32.2 fsgd=028) MEAN CORPUSCULAR HEMOGLOBIN CONC (BEAKER) (test 32.4 GM/DL 32.3-36.5 rlbn=945) RED CELL DISTRIBUTION WIDTH (BEAKER) (test 13.8 % 11.6-14.4 wgvz=046) PLATELET COUNT (BEAKER) (test rzgo=893) 201 K/CU MM 150-450 MEAN PLATELET VOLUME (BEAKER) (test bnaw=140) 10.2 fL 9.4-12.4 NUCLEATED RED BLOOD CELLS (BEAKER) (test 0 /100 WBC 0-0 rvog=377) NEUTROPHILS RELATIVE PERCENT (BEAKER) (test 67 % ddbc=109) LYMPHOCYTES RELATIVE PERCENT (BEAKER) (test 21 % ojpw=178) MONOCYTES RELATIVE PERCENT (BEAKER) (test 11 % idns=523) EOSINOPHILS RELATIVE PERCENT (BEAKER) (test 1 % kxdj=825) BASOPHILS RELATIVE PERCENT (BEAKER) (test 0 % trrh=481) NEUTROPHILS ABSOLUTE COUNT (BEAKER) (test 3.92 K/ L 1.78-5.38 xwol=148) LYMPHOCYTES ABSOLUTE COUNT (BEAKER) (test 1.25 K/ L 1.32-3.57 ywdm=506) MONOCYTES ABSOLUTE COUNT (BEAKER) (test 0.63 K/ L 0.30-0.82 qqdd=602) EOSINOPHILS ABSOLUTE COUNT (BEAKER) (test 0.06 K/ L 0.04-0.54 wvjx=505) BASOPHILS ABSOLUTE COUNT (BEAKER) (test 0.02 K/ L 0.01-0.08 sqpb=414) IMMATURE GRANULOCYTES-RELATIVE PERCENT (BEAKER) 0 % 0-1 (test fiwk=8033) [id number] 04:31:00 Test Item Value Reference Range Comments PHOSPHORUS (BEAKER) (test kpnm=889) 3.7 mg/dL 2.3-4.7 [id number] 04:31:00 Test Item Value Reference Range Comments MAGNESIUM (BEAKER) (test dmfe=858) 1.9 mg/dL 1.6-2.6 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 [id number] 04:31:00 Test Item Value Reference Range Comments SODIUM (BEAKER) (test 133 meq/L 136-145 biyf=162) POTASSIUM (BEAKER) (test 4.7 meq/L 3.5-5.1 yqlu=297) CHLORIDE (BEAKER) (test 106 meq/L 98-107 xpsv=537) CO2 (BEAKER) (test 19 meq/L 22-29 vhnq=728) BLOOD UREA NITROGEN 19 mg/dL 7-21 (BEAKER) (test hglt=708) CREATININE (BEAKER) (test 1.10 mg/dL 0.57-1.25 vzwc=314) GLUCOSE RANDOM (BEAKER) 105 mg/dL 70-105 (test ghqx=187) CALCIUM (BEAKER) (test 8.1 mg/dL 8.4-10.2 qhfp=486) EGFR (BEAKER) (test 71 mL/min/1.73 sq m ESTIMATED GFR IS NOT lqdy=1971) ACCURATE CREATININE CLEARANCE IN PREDICTING GLOMERULAR FILTRATION RATE. ESTIMATED GFR IS NOT APPLICABLE FOR DIALYSIS PATIENTS. CBC W/PLT COUNT & AUTO [id number] 04:15:00 Test Item Value Reference Range Comments WHITE BLOOD CELL COUNT (BEAKER) (test cuee=419) 9.9 K/ L 3.5-10.5 RED BLOOD CELL COUNT (BEAKER) (test hocj=454) 4.34 M/ L 4.63-6.08 HEMOGLOBIN (BEAKER) (test penx=472) 13.1 GM/DL 13.7-17.5 HEMATOCRIT (BEAKER) (test kriz=998) 40.3 % 40.1-51.0 MEAN CORPUSCULAR VOLUME (BEAKER) (test rgwn=984) 92.9 fL 79.0-92.2 MEAN CORPUSCULAR HEMOGLOBIN (BEAKER) (test 30.2 pg 25.7-32.2 zrbw=689) MEAN CORPUSCULAR HEMOGLOBIN CONC (BEAKER) (test 32.5 GM/DL 32.3-36.5 kxgj=648) RED CELL DISTRIBUTION WIDTH (BEAKER) (test 14.2 % 11.6-14.4 ogkx=612) PLATELET COUNT (BEAKER) (test lmbl=829) 207 K/CU MM 150-450 MEAN PLATELET VOLUME (BEAKER) (test pasv=151) 10.3 fL 9.4-12.4 NUCLEATED RED BLOOD CELLS (BEAKER) (test 0 /100 WBC 0-0 tdhx=548) NEUTROPHILS RELATIVE PERCENT (BEAKER) (test 79 % vruo=221) LYMPHOCYTES RELATIVE PERCENT (BEAKER) (test 12 % bxee=096) MONOCYTES RELATIVE PERCENT (BEAKER) (test 9 % xlmg=566) EOSINOPHILS RELATIVE PERCENT (BEAKER) (test 0 % wjna=554) BASOPHILS RELATIVE PERCENT (BEAKER) (test 0 % mfxg=263) NEUTROPHILS ABSOLUTE COUNT (BEAKER) (test 7.77 K/ L 1.78-5.38 jjnb=554) LYMPHOCYTES ABSOLUTE COUNT (BEAKER) (test 1.17 K/ L 1.32-3.57 mrvh=875) MONOCYTES ABSOLUTE COUNT (BEAKER) (test 0.89 K/ L 0.30-0.82 vmdr=798) EOSINOPHILS ABSOLUTE COUNT (BEAKER) (test 0.00 K/ L 0.04-0.54 welv=203) BASOPHILS ABSOLUTE COUNT (BEAKER) (test 0.01 K/ L 0.01-0.08 ldhu=055) IMMATURE GRANULOCYTES-RELATIVE PERCENT (BEAKER) 0 % 0-1 (test afxe=8342) [id number] 06:41:00 Test Item Value Reference Range Comments PHOSPHORUS (BEAKER) (test ntrn=196) 3.1 mg/dL 2.3-4.7 [id number] 06:41:00 Test Item Value Reference Range Comments MAGNESIUM (BEAKER) (test labd=348) 1.9 mg/dL 1.6-2.6 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 [id number] 06:41:00 Test Item Value Reference Range Comments SODIUM (BEAKER) (test 136 meq/L 136-145 flzx=863) POTASSIUM (BEAKER) (test 4.0 meq/L 3.5-5.1 vfxg=929) CHLORIDE (BEAKER) (test 108 meq/L 98-107 crgh=343) CO2 (BEAKER) (test 22 meq/L 22-29 qfgm=075) BLOOD UREA NITROGEN 17 mg/dL 7-21 (BEAKER) (test qscn=909) CREATININE (BEAKER) (test 1.00 mg/dL 0.57-1.25 edyf=210) GLUCOSE RANDOM (BEAKER) 106 mg/dL 70-105 (test bwbb=604) CALCIUM (BEAKER) (test 8.5 mg/dL 8.4-10.2 opfv=544) EGFR (BEAKER) (test 79 mL/min/1.73 sq m ESTIMATED GFR IS NOT dopg=4993) ACCURATE CREATININE CLEARANCE IN PREDICTING GLOMERULAR FILTRATION RATE. ESTIMATED GFR IS NOT APPLICABLE FOR DIALYSIS PATIENTS. CBC W/PLT COUNT & AUTO [id number] 06:36:00 Test Item Value Reference Range Comments WHITE BLOOD CELL COUNT (BEAKER) (test plly=029) 11.1 K/ L 3.5-10.5 RED BLOOD CELL COUNT (BEAKER) (test jcfd=835) 4.86 M/ L 4.63-6.08 HEMOGLOBIN (BEAKER) (test nlky=456) 14.6 GM/DL 13.7-17.5 HEMATOCRIT (BEAKER) (test qnyj=363) 43.7 % 40.1-51.0 MEAN CORPUSCULAR VOLUME (BEAKER) (test uoxw=994) 89.9 fL 79.0-92.2 MEAN CORPUSCULAR HEMOGLOBIN (BEAKER) (test 30.0 pg 25.7-32.2 jxdn=445) MEAN CORPUSCULAR HEMOGLOBIN CONC (BEAKER) (test 33.4 GM/DL 32.3-36.5 rmfw=651) RED CELL DISTRIBUTION WIDTH (BEAKER) (test 14.2 % 11.6-14.4 ufcc=317) PLATELET COUNT (BEAKER) (test kxwv=043) 265 K/CU MM 150-450 MEAN PLATELET VOLUME (BEAKER) (test vbus=305) 10.3 fL 9.4-12.4 NUCLEATED RED BLOOD CELLS (BEAKER) (test 0 /100 WBC 0-0 dpcp=981) NEUTROPHILS RELATIVE PERCENT (BEAKER) (test 78 % inca=199) LYMPHOCYTES RELATIVE PERCENT (BEAKER) (test 13 % jrom=245) MONOCYTES RELATIVE PERCENT (BEAKER) (test 8 % jwmi=804) EOSINOPHILS RELATIVE PERCENT (BEAKER) (test 0 % tcun=753) BASOPHILS RELATIVE PERCENT (BEAKER) (test 0 % yzfx=234) NEUTROPHILS ABSOLUTE COUNT (BEAKER) (test 8.60 K/ L 1.78-5.38 qmsl=343) LYMPHOCYTES ABSOLUTE COUNT (BEAKER) (test 1.43 K/ L 1.32-3.57 rhwb=075) MONOCYTES ABSOLUTE COUNT (BEAKER) (test 0.92 K/ L 0.30-0.82 zhge=504) EOSINOPHILS ABSOLUTE COUNT (BEAKER) (test 0.00 K/ L 0.04-0.54 hjdl=394) BASOPHILS ABSOLUTE COUNT (BEAKER) (test 0.04 K/ L 0.01-0.08 rrfl=245) IMMATURE GRANULOCYTES-RELATIVE PERCENT (BEAKER) 1 % 0-1 (test satz=0616) CT, [id number] 17:04:00No PO contrastFINAL REPORT ABDOMINAL AND PELVIS CT DATED 03/17/2019 CLINICAL INFORMATION: Abdominal pain , unspecifiedlarge prolapse, eval anatomy for potential ileostomy revision TECHNIQUE: Axial images of the abdomen and pelvis were obtained from diaphragm to the pubic symphysis without GIor intravenous contrast. This exam was performed according to our departmental dose-optimization program, which includes automated exposure control, adjustment of the mA and/or kV according to patientsize and/or use of interactive reconstruction technique. COMMENT: [...] is nonspecific wall thickening in the descending andsigmoid colon. No small or large bowel dilatation is apparent. Appendix is not visualized. Prostate is normal in size. The urinary bladder is contracted. No mass, adenopathy or ascites is present. IMPRESSION: 1. Large right mid abdominal hernia with herniation a segment of the small bowel, omentum, and ascites fluid.2. No mechanical obstruction or ileus.3. Nonspecific wall thickening in the descending and sigmoid colon secondary to nondistention or colitis. Signed: Amberly Munroe MDReport Verified Date/Time: 03/17/2019 17:04:19 Reading Location: [facility] B1 C013Y CT Body Reading Room XR ABDOMEN 2 [id number] 09:03: 45XR ABDOMEN 2 VIEWSLOCATION: [id number]: Colstomy ProlapseCOMPARISON: Chest radiograph 04/15/2017, CTof the abdomen and pelvis04/14/2017FINDINGS: AP chest and AP supine/upright abdominal radiographs areobtained.The lungs are grossly clear. There is no evidence for pneumothorax. The cardiomediastinal silhouette is within normal limits. A nonspecific, nonobstructive bowel gas pattern is present.There is no evidence for pneumoperitoneum.There are no acute osseous abnormalities.IMPRESSION: 1. No acutecardiopulmonary abnormalities.2. Nonspecific, nonobstructive bowel gas pattern.XR CHEST 1 [id number] 11:32: 15EXAM: CHEST ONE VIEWINDICATION: Chest painCOMPARISON: None availableTECHNIQUE : AP view of the chest.FINDINGS: The cardiomediastinal silhouette is normal. The lungs are clearbilaterally. No pneumothoraxor pleural effusion is identified. Theosseous structures are unremarkable.IMPRESSION: No acute cardiopulmonary process.LOCATION: I89Gwbmt Type and [id number] 21:21:00 Test Item Value Reference Range Comments ABO type (test code=ABO) O Rh Type (test code=RH) Positive Comprehensive Metabolic [id number] 20:36:00 Test Item Value Reference Range Comments [...] race is not provided, and the patient isAfrican-Tanzanian, multiply by 1.212. If sex is not provided, and thepatient is female, multiply by 0.742. Results for patients <18 years ofage have not been validated by the MDRD study and should be interpretedwith caution.eGFR Result Interpretation:eGFR > or=60 is in the Normal RangeeGFR < 60 may mean kidney diseaseeGFR < 15 may mean kidney failureRanges recommended by the National Kidney Foundation,http://nkdep.nih .gov Alcohol/Ethanol, [id number] 20:36:00 Test Item Value Reference Range Comments Alcohol, Ethyl (test <0.01 g/dL 0.00-0.01 Intoxicated 0.080 g/dL or code=ETOH) more Prothrombin [id number] 20:00:00 Test Item Value Reference Range Comments PT (test code=PT) 10.10 seconds 9.78-13.35 INR (test code=INR) 0.88 Ratio 0.6-1.2 Partial Thromboplastin [id number] 20:00:00 Test Item Value Reference Range Comments aPTT (test code=PTT) 31.50 seconds 24.39-37.25 CBC with [id number] 19:50:00 Test Item Value Reference Range Comments [...] Lymph Abs (test code=ALYMPH) 2.2 K/cumm 0.5-4.6 [place] Abs (test code=AMONO) 0.4 K/cumm 0.0-1.2 Eos Abs (test code=AEOS) 0.17 K/cumm 0.00-0.74 Baso Abs (test code=ABASO) 0.0 K/cumm 0.00-0.21 32602& PELVIS W/O [id number] 17:36:28CT ABDOMEN AND PELVIS WITHOUT CONTRAST.CLINICAL HISTORY: [...]
[2019-04-02] MEDS ORDERED: CIPROFLOXACIN 400mg IV 400 MG/200 ML BAG IV ONE (12:04)
[2019-04-02] MEDS ORDERED: METRONIDAZOLE 500mg IVPB 500 MG/100 ML BAG IV ONE (12:05)
[2019-04-02] MEDS ORDERED: NA CHLORIDE 0.9% 1,000 ML ONE (12:05)
--- NOTE | 2019-04-02 12:05 | RAD REPORT ---
EXAM DESCRIPTION: RAD - Chest Single View - 04/02/2019 11:49 am CLINICAL HISTORY: ABDOMINAL DISTENTION Chest pain. COMPARISON: Chest Single View dated 03/17/2019; Chest Single View dated 03/12/2019; Abdomen 1 View ([facility]) dated 02/27/2019; Abdomen Acute Series dated 12/08/2018 FINDINGS: Portable technique limits examination quality. Distended bowel loops in the upper abdomen are seen with underinflated lungs. The heart is normal in size. No displaced fractures.
[2019-04-02 12:32] LABS: Absolute Lymphocytes (CBC) 0.8 K/uL (0.7-4.9); Basophils % 0.9 % (0-1.3); Hematocrit 29.3 % (39.6-49.0); Lymphocytes % 13.1 % (15.3-44.8); MPV 8.4 fL (7.6-11.3); RBC Red Blood Cell Count 3.26 M/uL (4.33-5.43)
[2019-04-02 12:38] LABS: Protime INR 1.1
[2019-04-02 12:49] LABS: ALT/SGPT 17 U/L (12-78); AST/SGOT 18 U/L (15-37); Albumin 2.4 g/dL (3.4-5.0); Alkaline Phosphatase 47 U/L (45-117); BUN Blood Urea Nitrogen 11 mg/dL (7-18); Bicarbonate 25 mmol/L (21-32); Bilirubin Direct < 0.1 mg/dL (0-0.2); Bilirubin Total 0.3 mg/dL (0.2-1.0); Glucose Level 88 mg/dL (74-106); Lipase 62 U/L (73-393); NT PRO-BNP 132 pg/mL (<125); Potassium 3.6 mmol/L (3.5-5.1); Protein, Total 5.7 g/dL (6.4-8.2); Sodium Level 140 mmol/L (136-145); Troponin (Emerg Dept Use Only) < 0.02 ng/mL (0.0-0.045)
[2019-04-02] MEDS ORDERED: NA CHLORIDE 0.9% 2,000 ML ONE (13:03)
[2019-04-02] MEDS ORDERED: FAMOTIDINE 20 MG/2 ML VIAL IV ONE (13:03)
--- NOTE | 2019-04-02 13:33 | RAD REPORT ---
EXAM DESCRIPTION: CTAbdomen Pelvis W Contrast - 04/02/2019 1:19 pm CLINICAL HISTORY: Abdominal pain. ABD PAIN COMPARISON: Abdomen Pelvis W Contrast dated 10/17/2016; Abdomen Pelvis W Contrast dated 09/27/2016; Abdomen Pelvis W Contrast dated 09/09/2016; Abdomen Pelvis W Contrast dated 05/14/2016 TECHNIQUE: Biphasic CT imaging of the abdomen and pelvis was performed with 100 ml non-ionic IV cont rast. All CT scans are performed using dose optimization technique as appropriate and may include automated exposure control or mA/KV adjustment according to patient size. FINDINGS: There is quite significant distention of the colon seen, in particular the transverse colo n which is distended to 9 cm and air-filled. A few small bowel loops also appear mildly thickened and distended in the central and lower abdomen in an unorganized fashion. Mild ascites is present in the abdomen. The left hemidiaphragmatic leaflet is elevated with atelectasis in the left lung base. No aggressive solid organ finding. No intra-abdominal abscess or significant free air. Anterior abdominal wall skin carmenza are noted. IMPRESSION: Findings favor a prominent adynamic ileus involving colon and small bowel loops. Mild as cites is present.
[2019-04-02 13:37] LABS: Urine Blood 3+ (NEG); Urine Glucose NEGATIVE (NEG); Urine Protein NEGATIVE (NEG); Urine pH 5.5 (5.0-7.0)
--- NOTE | 2019-04-02 13:53 | ER ---
Nurse's Notes [facility] Name: Rico Mcneill Age: 49 yrs Sex: Male : 1970 Arrival Date: 04/02/2019 Time: 09:55 Bed 4 Private MD: Diagnosis: Abdominal tenderness;Ileus, unspecified;Ascites Presentation: 04/02 10:00 Presenting complaint: EMS states: Pt had colostomy removed last week, released from [address] yesterday, abdominal surgical incision site leaking, Zepeda catheter in place since last week c/o head of penis burning. Transition of care: patient was not received from another setting of care. Onset of symptoms was April 02, 2019. Risk Assessment: Do you want to hurt yourself or someone else? Patient reports no desire to harm self or others. Initial Sepsis Screen: Does the patient meet any 2 criteria? No. Patient's initial sepsis screen is negative. Does the patient have a suspected source of infection? Yes: Catheter related infection (Zepeda/dialysis/PICC/central line). Care prior to arrival: Medication(s) given: Normal saline infusion, 1000 mL, IV initiated. 20 GA, in the right hand, Glucose check: 137. 10:00 Method Of Arrival: EMS: [facility] 10:00 Acuity: OCTAVIO 3 [facility] Triage Assessment: 10:06 General: Appears in no apparent distress. uncomfortable, Behavior is cooperative, jl7 appropriate for age, anxious. Pain: Complains of pain in abdomen and groin. Neuro: Level of Consciousness is awake, alert, obeys commands, Oriented to person, place, time, situation. GI: Abdomen is round distended, Stools are reported to be diarrhea. Last BM was April 02, 2019. : Zepeda in place to gravity drainage Reports Head of penis burning. Derm: Skin is pink, warm \T\ dry. abdominal incision leaking. Historical: - Allergies: 10:06 NKDA; jl7 - PMHx: 10:06 Bipolar disorder; bowel obstruction; colostomy; Hypertension; Hypothyroidism; jl7 - PSHx: 10:06 Colostomy; Colostomy reversal; jl7 - Immunization history:: Adult Immunizations unknown. - Ebola Screening: : No symptoms or risks identified at this time. - Family history:: not pertinent. - Social history:: Smoking status: Patient uses tobacco products. Screenin:00 Abuse screen: Denies threats or abuse. Denies injuries from another. Nutritional jl7 screening: No deficits noted. Tuberculosis screening: No symptoms or risk factors identified. Fall Risk IV access (20 points). Total Stanley Fall Scale indicates No Risk (0-24 pts). Assessment: 12:38 Reassessment: Patient is alert, oriented x 3, equal unlabored respirations, skin aa5 warm/dry/pink. Lights dimmed for comfort, pt notified of wait time for lab results and notified of wait time for CT scan to be completed. . 13:08 Reassessment: Pt taken to CT via stretcher . aa5 Vital Signs: 10:06 BP 125 / 85; Pulse 105; Resp 16 S; Temp 98.3(O); Pulse Ox 100% on R/A; jl7 12:58 BP 111 / 78; Pulse 80; Resp 14 S; Pulse Ox 100% on R/A; Pain 0/10; aa5 16:30 BP 124 / 80; Pulse 80; Resp 18 S; Pulse Ox 100% on R/A; jl7 ED Course: 09:55 Patient arrived in ED. em1 09:59 Abril Noonan, RN is Primary Nurse. jl7 10:04 Triage completed. jl7 10:06 Arm band placed on right wrist. jl7 10:08 Rashaun Jiménez MD is Attending Physician. diego 10:10 Patient has correct armband on for positive identification. Placed in gown. Bed in low jl7 position. Call light in reach. Side rails up X2. radiation monitor on. Pulse ox on. NIBP on. Warm blanket given. 11:48 XRAY Chest (1 view) In Process Unspecified. EDMS 12:20 2 unsuccessful attempts to draw blood. aa5 12:27 Initial lab(s) drawn, by me, sent to lab. Inserted saline lock: 22 gauge in left aa5 forearm, using aseptic technique. Blood collected. 13:19 CT completed. Patient tolerated procedure well. Patient moved back from CT. mw3 13:20 CT Abd/Pelvis - PO and IV Contrast In Process Unspecified. EDMS 13:45 Urine collected: Zepeda catheter specimen, clear, vicente colored. jb1 16:58 No provider procedures requiring assistance completed. Patient transferred, IV remains jl7 in place. intact, No redness/swelling at site. Administered Medications: 12:37 Drug: NS 0.9% 1000 ml Route: IV; Rate: 1 bolus; Site: left forearm; aa5 14:48 Follow up: IV Status: Completed infusion; IV Intake: 1000ml aa5 12:37 Drug: Flagyl 500 mg Volume: 100 ml; Route: IVPB; Rate: 200 ml/hr; Infused Over: 30 aa5 mins; Site: left forearm; 13:07 Follow up: Response: No adverse reaction; IV Status: Completed infusion; IV Intake: aa5 100ml 13:07 Drug: NS 0.9% 1000 ml Route: IV; Rate: 1 bolus; Site: left forearm; aa5 14:48 Follow up: IV Status: Completed infusion; IV Intake: 1000ml aa5 13:07 Drug: Pepcid 20 mg Route: IVP; Site: left forearm; aa5 13:09 Follow up: Response: No adverse reaction aa5 13:48 Drug: Cipro 400 mg Volume: 200 ml; Route: IVPB; Infused Over: 60 mins; Site: left aa5 forearm; 14:47 Follow up: Response: No adverse reaction; IV Status: Completed infusion aa5 16:55 Drug: NS 0.9% 1000 ml Route: IV; Rate: 125 ml/hr; Site: left forearm; jl7 16:56 Follow up: IV Status: Infusion continued upon transfer jl7 Intake: 13:07 IV: 100ml; Total: 100ml. aa5 14:48 IV: 1000ml; Total: 1100ml. aa5 14:48 IV: 1000ml; Total: 2100ml. aa5 12:35 Vicente colored urine. Will wait for fresh urine to collect for urine specimen, pt aa5 notified. Output: 12:35 Urine: 150ml (Zepeda); Total: 150ml. aa5 12:35 Vicente colored urine. Will wait for fresh urine to collect for urine specimen, pt aa5 notified. Outcome: 13:54 ER care complete, transfer ordered by MD. cortez 16:58 Transferred by [facility], Transfer form completed. [facility] 16:58 Condition: stable 16:58 Discharge instructions given to patient, Instructed on the need for transfer, Demonstrated understanding of instructions. 16:58 Patient left the ED. jl7 Signatures: Dispatcher [employer] EDMS Bernardo Kumari jb1 Rashaun Jiménez MD MD cha Martinez, Eric em1 Julissa Roy RN RN aa5 Abril Noonan RN RN jl7 Funmilayo Munguia mw3 Corrections: (The following items were deleted from the chart) 12:43 12:35 Urine 150, (Zepeda), Output Total 150; Note:Will wait for fresh urine to collect aa5 for urine specimen, pt notified. . aa5
--- NOTE | 2019-04-02 17:00 | EDPHYS ---
Physician Documentation [facility] Name: Rico Mcneill Age: 49 yrs Sex: Male : 1970 Arrival Date: 04/02/2019 Time: 09:55 Bed 4 Private MD: ED Physician Rashaun Jiménez HPI: 04/02 11:23 This 49 yrs old Male presents to ER via EMS with complaints of Urinary diego Problem, Surigal incision draining. 11:23 The patient presents with abdominal pain in the upper abdomen, in the lower abdomen, diego abdominal distention in the upper abdomen, in the lower abdomen. Onset: The symptoms/episode began/occurred 2 day(s) ago. The symptoms do not radiate. Associated signs and symptoms: none. Modifying factors: The symptoms are alleviated by nothing, the symptoms are aggravated by movement, pressure. Severity of pain: At its worst the pain was mild in the emergency department the pain is unchanged. The patient has not experienced similar symptoms in the past. Historical: - Allergies: 10:06 NKDA; jl7 - PMHx: 10:06 Bipolar disorder; bowel obstruction; colostomy; Hypertension; Hypothyroidism; jl7 - PSHx: 10:06 Colostomy; Colostomy reversal; jl7 - Immunization history:: Adult Immunizations unknown. - Ebola Screening: : No symptoms or risks identified at this time. - Family history:: not pertinent. - Social history:: Smoking status: Patient uses tobacco products. ROS: 11:23 Constitutional: Negative for fever, chills, and weight loss, Eyes: Negative for injury, diego pain, redness, and discharge, ENT: Negative for injury, pain, and discharge, Neck: Negative for injury, pain, and swelling, Cardiovascular: Negative for chest pain, palpitations, and edema, Respiratory: Negative for shortness of breath, cough, wheezing, and pleuritic chest pain, Back: Negative for injury and pain, MS/Extremity: Negative for injury and deformity, Skin: Negative for injury, rash, and discoloration, Neuro: Negative for headache, weakness, numbness, tingling, and seizure, Psych: Negative for depression, anxiety, suicide ideation, homicidal ideation, and hallucinations, Allergy/Immunology: Negative for hives, rash, and allergies, Endocrine: Negative for neck swelling, polydipsia, polyuria, polyphagia, and marked weight changes, Hematologic/Lymphatic: Negative for swollen nodes, abnormal bleeding, and unusual bruising. 11:23 Abdomen/GI: Positive for abdominal pain, abdominal distension, of the right upper quadrant, left upper quadrant, right lower quadrant and left lower quadrant. Exam: 11:23 Constitutional: This is a well developed, well nourished patient who is awake, alert, diego and in no acute distress. Head/Face: Normocephalic, atraumatic. Eyes: Pupils equal round and reactive to light, extra-ocular motions intact. Lids and lashes normal. Conjunctiva and sclera are non-icteric and not injected. Cornea within normal limits. Periorbital areas with no swelling, redness, or edema. ENT: Nares patent. No nasal discharge, no septal abnormalities noted. Tympanic membranes are normal and external auditory canals are clear. Oropharynx with no redness, swelling, or masses, exudates, or evidence of obstruction, uvula midline. Mucous membranes moist. Neck: Trachea midline, no thyromegaly or masses palpated, and no cervical lymphadenopathy. Supple, full range of motion without nuchal rigidity, or vertebral point tenderness. No Meningismus. Chest/axilla: Normal chest wall appearance and motion. Nontender with no deformity. No lesions are appreciated. Cardiovascular: Regular rate and rhythm with a normal S1 and S2. No gallops, murmurs, or rubs. Normal PMI, no JVD. No pulse deficits. Respiratory: Lungs have equal breath sounds bilaterally, clear to auscultation and percussion. No rales, rhonchi or wheezes noted. No increased work of breathing, no retractions or nasal flaring. Back: No spinal tenderness. No costovertebral tenderness. Full range of motion. Skin: Warm, dry with normal turgor. Normal color with no rashes, no lesions, and no evidence of cellulitis. MS/ Extremity: Pulses equal, no cyanosis. Neurovascular intact. Full, normal range of motion. Neuro: Awake and alert, GCS 15, oriented to person, place, time, and situation. Cranial nerves II-XII grossly intact. Motor strength 5/5 in all extremities. Sensory grossly intact. Cerebellar exam normal. Normal gait. Psych: Awake, alert, with orientation to person, place and time. Behavior, mood, and affect are within normal limits. 11:23 Abdomen/GI: Inspection: distension, Bowel sounds: hyperactive, Palpation: mild abdominal tenderness, in all quadrants, Liver: no appreciated palpable abnormalities, Hernia: not appreciated. Vital Signs: 10:06 BP 125 / 85; Pulse 105; Resp 16 S; Temp 98.3(O); Pulse Ox 100% on R/A; jl7 12:58 BP 111 / 78; Pulse 80; Resp 14 S; Pulse Ox 100% on R/A; Pain 0/10; aa5 16:30 BP 124 / 80; Pulse 80; Resp 18 S; Pulse Ox 100% on R/A; jl7 MDM: 10:09 Patient medically screened. [facility] 11:26 Data reviewed: vital signs, nurses notes, lab test result(s), EKG, radiologic studies. [facility] 14:23 Other consultation: dr gautam, explained case, transfer to primary facility. [facility] 04/02 11:21 Order name: Basic Metabolic Panel [facility] 04/02 11:21 Order name: CBC with Diff [facility] 04/02 11:21 Order name: LFT's [facility] 04/02 11:21 Order name: Magnesium; Complete Time: 12:51 [facility] 04/02 11:21 Order name: NT PRO-BNP; Complete Time: 12:51 [facility] 04/02 11:21 Order name: PT-INR; Complete Time: 12:49 [facility] 04/02 11:21 Order name: Troponin (emerg Dept Use Only); Complete Time: 12:51 [facility] 04/02 11:21 Order name: XRAY Chest (1 view); Complete Time: 12:49 [facility] 04/02 11:21 Order name: Lipase; Complete Time: 12:51 [facility] 04/02 11:21 Order name: Urine Culture [facility] 04/02 11:22 Order name: Basic Metabolic Panel; Complete Time: 12:51 [facility] 04/02 11:22 Order name: CBC with Automated Diff; Complete Time: 12:49 [facility] 04/02 11:22 Order name: Liver (Hepatic) Function; Complete Time: 12:51 [facility] 04/02 13:33 Order name: Urine Dipstick--Ancillary (enter results); Complete Time: 13:49 em1 04/02 11:21 Order name: EKG; Complete Time: 11:22 [facility] 04/02 11:21 Order name: Cardiac monitoring; Complete Time: 12:40 [facility] 04/02 11:21 Order name: EKG - Nurse/Tech; Complete Time: 12:40 [facility] 04/02 11:21 Order name: IV Saline Lock; Complete Time: 12:40 [facility] 04/02 11:21 Order name: Labs collected and sent; Complete Time: 12:40 [facility] 04/02 11:21 Order name: O2 Per Protocol; Complete Time: 12:40 [facility] 04/02 11:21 Order name: O2 Sat Monitoring; Complete Time: 12:40 [facility] 04/02 11:21 Order name: Urine Dipstick-Ancillary (obtain specimen); Complete Time: 13:31 [facility] 04/02 11:21 Order name: CT Abd/Pelvis - PO and IV Contrast; Complete Time: 13:49 [facility] 04/02 13:53 Order name: NPO; Complete Time: 14:47 [facility] Administered Medications: 12:37 Drug: NS 0.9% 1000 ml Route: IV; Rate: 1 bolus; Site: left forearm; aa5 14:48 Follow up: IV Status: Completed infusion; IV Intake: 1000ml aa5 12:37 Drug: Flagyl 500 mg Volume: 100 ml; Route: IVPB; Rate: 200 ml/hr; Infused Over: 30 aa5 mins; Site: left forearm; 13:07 Follow up: Response: No adverse reaction; IV Status: Completed infusion; IV Intake: aa5 100ml 13:07 Drug: NS 0.9% 1000 ml Route: IV; Rate: 1 bolus; Site: left forearm; aa5 14:48 Follow up: IV Status: Completed infusion; IV Intake: 1000ml aa5 13:07 Drug: Pepcid 20 mg Route: IVP; Site: left forearm; aa5 13:09 Follow up: Response: No adverse reaction aa5 13:48 Drug: Cipro 400 mg Volume: 200 ml; Route: IVPB; Infused Over: 60 mins; Site: left aa5 forearm; 14:47 Follow up: Response: No adverse reaction; IV Status: Completed infusion aa5 16:55 Drug: NS 0.9% 1000 ml Route: IV; Rate: 125 ml/hr; Site: left forearm; jl7 16:56 Follow up: IV Status: Infusion continued upon transfer jl7 Disposition: 04/02/19 13:[address] [facility]. Diagnosis are Abdominal tenderness, Ileus, unspecified, Ascites. - Reason for transfer: Higher level of care. - Accepting physician is abdominal pain. - Condition is Fair. - Problem is new. - Symptoms have improved. Signatures: Dispatcher [employer] Rashaun Delarosa MD MD cha Calderon, Audri, RN RN aa5 Abril Noonan RN RN jl7 Corrections: (The following items were deleted from the chart) 16:58 13:54 04/02/2019 13:[address] [facility]. Diagnosis is jl7 Abdominal tenderness; Ileus, unspecified; Ascites. Reason for transfer: Higher level of care. Accepting physician is abdominal pain. Condition is Fair. Problem is new. Symptoms have improved. diego
[2019-04-02 17:19] VITALS: TEMP 98.3; O2SAT 100
[2019-04-02 17:22] VITALS: BP 124/80
--- NOTE | 2019-04-03 10:24 | EKG ---
Test Date: 2019-04-02 Test Time: 12:33:02 Proration Clerk: EMI MEASUREMENT RESULTS: Intervals: Rate: 85 UT: 142 QRSD: 92 QT: 374 QTc: 445 [place]: P: 66 UT: 142 QRS: 41 T: 60 INTERPRETIVE STATEMENTS: Normal sinus rhythm Normal ECG Compared to ECG 03/17/2019 06:48:54 Sinus bradycardia no longer present Electronically Signed On 04-03-19 10:23:23 CDT by Andre Lynne
== END 2019-04-02 16:58 | disposition short-term general hospital (02) ==
LOC: ER 09:52
DX: R10.10 Upper abdominal pain, unspecified (principal); R10.30 Lower abdominal pain, unspecified; R18.8 Other ascites; F31.9 Bipolar disorder, unspecified; I10 Essential (primary) hypertension; E03.9 Hypothyroidism, unspecified
CPT/HCPCS: 36415; 71045; 74177; 80048; 80076; 81003; 83690; 83735; 83880; 84484; 85025; 85610; 87086; 87088; 93005; 96361; 96365; 96367; 96375; 99285; J0744; J7030; Q9967

== ENCOUNTER 2019-04-16 09:11 | Emergency (ER) | payer SELFPAY ==
--- OUTSIDE RECORDS SUMMARY | 2019-04-16 09:14 | XMS REPORT | Clinical Summary ---
:1970 Author Organization [facility] Address [address] [place] [address] Care Team Providers Name Role Phone Pcp, [...] 1 tablet 20 tablet 0 04/01/2019 04/11/2019 mg tablet (50 mg total) by mouth every 6 (six) hours as needed for up to 10 days. 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 Encounters Date Type Specialty Care Team Description 04/02/2019 - [facility] Internal [facility] Ileus (HCC) 04/04/2019 Encounter Medicine Carmen Smith MD Zindani, Shireen, MD Lin, Fang-Ying, MD 04/02/2019 Travel 03/25/2019 Anesthesia Event Luis Morales MD 03/25/2019 Surgery Graciela Garrison EXPLORA F., MD TORY 03/23/2019 Surgery Gastroenterology Vicente Monsivais COLONOSCOPY MD Niru 03/23/2019 Anesthesia Event Gastroenterology Karin Wallis 03/18/2019 Anesthesia Event Chago Moise MD 03/18/2019 Surgery Marsha, REVISION,ILEOSTOMY Juan Alberto Simmons MD 03/17/2019 - [facility] Internal [facility], Intestinal stoma prolapse (HCC); 04/01/2019 Encounter Medicine Juan Alberto Simmons, S/P small bowel resection; Colon stricture (HCC); Increased ileostomy output (HCC) after 04/15/2018 Social History Tobacco Use Types Packs/Day Years [...] Vital Sign Reading Time Taken Blood Pressure 122/78 04/04/2019 7:37 AM CDT Pulse 85 04/04/2019 7:37 AM CDT Temperature 36 C (96.8 F) 04/04/2019 7:37 AM CDT Respiratory Rate 19 04/04/2019 7:37 AM CDT Oxygen Saturation 99% 04/04/2019 7:37 AM CDT Inhaled Oxygen Concentration - - Weight 77.1 kg (170 lb) 03/23/2019 9:25 AM CDT Height 185.4 cm (6' 1") 03/23/2019 9:25 AM CDT Body Mass Index 22.43 03/23/2019 9:25 AM CDT Plan of Treatment Not on file Implants Implanted Type Area Customer Support Advisor Device Shelf Model / Identifier Expiration Serial / Date Lot Tessab Sepfilm Alpesh Kinney 5x6 4301-02 - [id number] IMPLANTS N/A: GENZYME ROSALIE: 09/23/2021 4301-02 / Implanted: Qty: 1 on 03/25/2019 by Graciela Garrison MD Abdomen BIO-SURG / [id number] Procedures Procedure Name Priority Date/Time Associated Comments Diagnosis (CELLAVISION MANUAL STAT 04/04/2019 6:17 Results for this DIFF) AM CDT procedure are in the results section. CBC W/PLT COUNT & STAT 04/04/2019 6:17 Results for this AUTO DIFFERENTIAL AM CDT procedure are in the results section. CBC W/PLT COUNT & STAT 04/04/2019 6:17 Results for this AUTO DIFFERENTIAL AM CDT procedure are in the results section. PHOSPHORUS STAT 04/04/2019 6:17 Results for this AM CDT procedure are in the results section. MAGNESIUM STAT 04/04/2019 6:17 Results for this AM CDT procedure are in the results section. 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 PANEL STAT 04/04/2019 6:17 Results for this (7) AM CDT procedure are in the results section. XR ABDOMEN 1 VIEW Routine 04/03/2019 5:59 Results for this AM CDT procedure are in the results section. 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 PANEL Routine 04/03/2019 5:00 Results for this (7) AM CDT procedure are in the results section. CBC (HEMOGRAM ONLY) Routine 04/03/2019 5:00 Results for this AM CDT procedure are in the results section. URINALYSIS Routine 04/02/2019 9:45 Results for this MICROSCOPIC PM CDT procedure are in the results section. URINALYSIS WITH Routine 04/02/2019 9:45 Results for this MICROSCOPIC IF PM CDT procedure are in INDICATED the results section. CBC (HEMOGRAM ONLY) Routine 04/01/2019 4:48 Results for this AM CDT procedure are in the results section. PHOSPHORUS STAT 04/01/2019 4:48 Results for this AM CDT procedure are in the results section. MAGNESIUM STAT 04/01/2019 4:48 Results for this AM CDT procedure are in the results section. 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 PANEL STAT 04/01/2019 4:48 Results for this (7) AM CDT procedure are in the results section. CBC (HEMOGRAM ONLY) Routine 03/31/2019 4:57 Results for this AM CDT procedure are in the results section. PHOSPHORUS STAT 03/31/2019 4:57 Results for this AM CDT procedure are in the results section. MAGNESIUM STAT 03/31/2019 4:57 Results for this AM CDT procedure are in the results section. 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 PANEL STAT 03/31/2019 4:57 Results for this (7) AM CDT procedure are in the results section. CBC (HEMOGRAM ONLY) Routine 03/30/2019 3:56 Results for this AM CDT procedure are in the results section. PHOSPHORUS STAT 03/30/2019 3:56 Results for this AM CDT procedure are in the results section. MAGNESIUM STAT 03/30/2019 3:56 Results for this AM CDT procedure are in the results section. 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 PANEL STAT 03/30/2019 3:56 Results for this (7) AM CDT procedure are in the [...] the results section. 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 PANEL STAT 03/29/2019 5:02 Results for this (7) AM CDT procedure are in the results section. XR ABDOMEN ACUTE STAT 03/28/2019 9:19 Results for this SERIES FLAT W UPRIGHT PM CDT procedure are in CHEST OR DECUBS the results section. XR ABDOMEN 1 VIEW STAT 03/28/2019 10:10 Results for this AM CDT procedure are in the results section. PHOSPHORUS STAT 03/28/2019 4:10 Results for this AM CDT procedure are in the results section. MAGNESIUM STAT 03/28/2019 4:10 Results for this AM CDT procedure are in the results section. 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 PANEL STAT 03/28/2019 4:10 Results for this (7) AM CDT procedure are in the results section. PHOSPHORUS STAT 03/27/2019 5:06 Results for this AM CDT procedure are in the results section. MAGNESIUM STAT 03/27/2019 5:06 Results for this AM CDT procedure are in the results section. 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 PANEL STAT 03/27/2019 5:06 Results for this (7) AM CDT procedure are in the results section. PHOSPHORUS STAT 03/26/2019 5:20 Results for this AM CDT procedure are in the results section. MAGNESIUM STAT 03/26/2019 5:20 Results for this AM CDT procedure are in the results section. 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 PANEL STAT 03/26/2019 5:20 Results for this (7) AM CDT procedure are in the [...] procedure are in the results section. after 04/15/2018 Results Manual Differential (04/04/2019 6:17 AM CDT) % Neutros 79 % [facility] % Lymphs 15 % [facility] % Monos 3 % [facility] % Eos 3 % [facility] # Neutros 3.40 1.78 - 5.38 K/ul [facility] # Lymphs 0.65 (L) 1.32 - 3.57 K/ul [facility] # Monos 0.13 (L) 0.30 - 0.82 K/uL [facility] # Eos 0.13 0.04 - 0.54 K/uL [facility] Total Counted 100 [facility] WBC Morphology Normal [facility] Platelet Morphology Normal [facility] Anisocytosis 1+ few [facility] Microcytes 1+ few [facility] Artifact Present [facility] Platelet Conc Adequate [facility] Specimen Blood Narrative Performed At Received comment: [facility] User comments: Slide comments: Performing Organization Address City/[facility] Phone Number [facility] [address] [place] [phone] [place] CBC with platelet count + automated diff (04/04/2019 6:17 AM CDT)Only the most recent of6 resultswithin the time period is included. WBC 4.3 3.5 - 10.5 K/L [facility] RBC 3.06 (L) 4.63 - 6.08 M/L [facility] Hemoglobin 8.8 (L) 13.7 - 17.5 GM/DL [facility] Hematocrit 28.1 (L) 40.1 - 51.0 % [facility] MCV 91.8 79.0 - 92.2 fL [facility] MCH 28.8 25.7 - 32.2 pg [facility] MCHC 31.3 (L) 32.3 - 36.5 GM/DL [facility] RDW 13.3 11.6 - 14.4 % [facility] Platelets 357 150 - 450 K/CU MM [facility] MPV 10.0 9.4 - 12.4 fL [facility] nRBC 0 0 - 0 /100 WBC [facility] Specimen Blood Performing Organization Address City/State/Zipcode Phone Number [facility] [address] [place] [address] [phone] CENTER Phosphorus (04/04/2019 6:17 AM CDT)Only the most recent of16 resultswithin the time period is included. Phosphorus 3.1 2.3 - 4.7 mg/dL [facility] Specimen Blood Performing Organization Address City/[facility]/Zipcode Phone Number [address] [address] [place] Magnesium (04/04/2019 6:17 AM CDT)Only the most recent of16 resultswithin the time period is included. Magnesium 1.6 1.6 - 2.6 mg/dL [facility] Specimen Blood Performing Organization Address [facility] Phone Number [address] [address] [phone] [place] Basic Metabolic Panel (04/04/2019 6:17 AM CDT)Only the most recent of17 resultswithin the time period is included. Sodium 141 136 - 145 meq/L [facility] Potassium 2.8 (L) 3.5 - 5.1 meq/L [facility] Chloride 105 98 - 107 meq/L [facility] CO2 25 22 - 29 meq/L [facility] BUN 5 (L) 7 - 21 mg/dL [facility] Creatinine 0.73 0.57 - 1.25 mg/dL [facility] Glucose 77 70 - 105 mg/dL [facility] Calcium 7.6 (L) 8.4 - 10.2 mg/dL [facility] EGFR 114Comment: ESTIMATED GFR IS mL/min/1.73 sq m [facility] NOT ACCURATE [facility] CLEARANCE IN PREDICTING GLOMERULAR FILTRATION RATE. ESTIMATED GFR IS NOT APPLICABLE FOR DIALYSIS PATIENTS. Specimen Blood Performing Organization Address City/[facility]/Zipcode Phone Number [address] [address] [place] XR abdomen / KUB 1 view (04/03/2019 5:59 AM CDT)Only the most recent of3 resultswithin the time period is included. Specimen Narrative Performed At FINAL REPORT [facility] Abdomen , one view History: Ileus Comparison: 03/29/2019 Findings: Moderate diffuse distention of both small and large bowel, most suggestive of ileus. Surgical carmenza are seen within the midline. No pneumoperitoneum.No definite bowel pneumatosis or portal venous gas.No calcifications along the expected course of the urinary tract. Impression: Moderate diffuse distention of both small and large bowel, most suggestive of ileus. Signed: Diony Gallegos MD Report Verified Date/Time:04/03/2019 07:04:46 Reading Location: [facility] C013X Ortho Consult Reading Room Procedure Note Interface, External Ris In - 04/03/2019 7:06 AM CDT FINAL REPORT Abdomen , one view History: Ileus Comparison: 03/29/2019 Findings: Moderate diffuse distention of both small and large bowel, most suggestive of ileus. Surgical carmenza are seen within the midline. No pneumoperitoneum. No definite bowel pneumatosis or portal venous gas. No calcifications along the expected course of the urinary tract. Impression: Moderate diffuse distention of both small and large bowel, most suggestive of ileus. Signed: Diony Gallegos MD Report Verified Date/Time: 04/03/2019 07:04:46 Reading Location: [facility] B1 C013X Ortho Consult Reading Room Performing Organization Address City/State/Zipcode Phone Number [facility] CBC (Hemogram only) (04/03/2019 5:00 AM CDT)Only the most recent of7 resultswithin the time period is included. WBC 4.4 3.5 - 10.5 K/L [facility] RBC 2.77 (L) 4.63 - 6.08 M/L [facility] Hemoglobin 8.3 (L) 13.7 - 17.5 GM/DL [facility] Hematocrit 25.5 (L) 40.1 - 51.0 % [facility] MCV 92.1 79.0 - 92.2 fL [facility] MCH 30.0 25.7 - 32.2 pg [facility] MCHC 32.5 32.3 - 36.5 GM/DL [facility] RDW 13.2 11.6 - 14.4 % [facility] Platelets 326 150 - 450 K/CU MM [facility] MPV 9.7 9.4 - 12.4 fL [facility] nRBC 0 0 - 0 /100 WBC [facility] Specimen Blood Performing Organization Address City/[facility]/Zipcode Phone Number [address] [address] C[place] Urinalysis Microscopic Only (04/02/2019 9:45 PM CDT) RBC, UA 18 /HPF [facility] WBC, UA 1 /HPF [facility] Ca Oxalate [place], UA Occasional [facility] Specimen Urine Performing Organization Address City/State/Zipcode Phone Number [address] [address] [place] Urinalysis with Microscopic If Indicated (04/02/2019 9:45 PM CDT) Color, UA Light Yellow [facility] Clarity, UA Clear [facility] Specific [place], UA 1.018 1.001 - 1.035 [facility] pH, UA 5.5 5.0 - 8.0 [facility] Protein, UA Negative Negative [facility] Glucose, UA Negative Negative [facility] Ketones, UA 100 mg/dL (A) Negative [facility] Bilirubin, UA Negative Negative [facility] Blood, UA Moderate (A) Negative [facility] Nitrite, UA Negative Negative [facility] Leukocytes, UA Negative Negative [facility] Urobilinogen, UA 0.2 0.2 - 1.0 mg/dL [facility] Specimen Source [facility] Specimen Urine Performing Organization Address City/State/Zipcode Phone Number [facility] [address] [place] [address] abdomen/pelvis with IV contrast (03/29/2019 1:29 PM CDT) Specimen Narrative Performed At FINAL REPORT [facility] TECHNIQUE: CT of the abdomen and pelvis [...] MD Report Verified Date/Time:03/29/2019 14:16:01 Reading Location: [facility] C013Y CT Body Reading Room Procedure Note [...] Report Verified Date/Time: 03/29/2019 14:16:01 Reading Location: [facility] C013Y CT Body Reading Room Performing Organization Address City/State/Zipcode Phone Number [facility] XR abdomen acute series flat/uprt with uprt pa chest and/or decubs (03/28/2019 9:19 PM CDT) Specimen Narrative Performed At FINAL REPORT [facility] CLINICAL HISTORY: eval ileus EXAMINATION: RAD, ABDOMEN [...] 22:18:50 Performing Organization Address City/State/Zipcode Phone Number [facility] TRANSFUSION SERVICE REPORT - SCAN (03/25/2019 6:01 PM CDT)Only the most recent of2 resultswithin the time period is included. Narrative Performed At Tissue Exam (03/25/2019 11:33 AM CDT)Only the most recent of2 resultswithin the time period is included. Case Report Surgical Pathology Report Case: [id number] [facility] Authorizing Provider:Graciela Garrison MD Collected: 03/25/2019 1133 [facility] Ordering Location: [facility] Received: 03/25/2019 1527 SERVICES Pathologist: Jordan Celaya MD Specimens: A) - Ileostomy, end ileostomy B) - Appendix DIAGNOSIS A. SMALL BOWEL, END ILEOSTOMY, TAKEDOWN: [facility] - ENTERIC WALL WITH ULCERATION, TRANSMURAL ACUTE INFLAMMATION, NECROSIS [facility] AND FOCAL INFLAMMATORY CHANGES CONSISTENT WITH DIVERSION COLITIS - VIABLE MARGINS - NEGATIVE FOR DYSPLASIA OR MALIGNANCY B. APPENDIX, APPENDECTOMY: - APPENDIX WITH NO SIGNIFICANT DIAGNOSTIC ABNORMALITY - NEGATIVE FOR MALIGNANCY Signing Pathologist Direct Phone Line: [phone] CPT Code(s) 19942G3 [facility] CLINICAL HISTORY Pre and postop diagnosis: [facility] ileostomy status [facility] SPECIMEN SOURCE A. End ileostomy; B. [facility] Appendix [facility] GROSS DESCRIPTION A. Received fresh labeled with the patient's name, accession number and "end ileostomy" is an unoriented segment of small bowel measuring 4 cm in length and 5 cm in diameter with a minimal amount of att [facility] ached mesentery. Also received is a second segment of unoriented small bowel measuring 3 cm in length and ranging 1.7-5.5 cm in diameter which has a small amount of mesentery with a focal area of necros [facility] is and hemorrhage. Each segment of small bowel is opened to reveal focal areas of submucosal hemorrhage. In the area of dilatation of the second mentioned segment of small bowel are focal areas of mucos al hemorrhage. Skin is not grossly identified on either segment. The mucosa is slightly edematous. No gross lesions are identified. Lymph nodes are not identified in the mesentery. Quarrying Manager sections are submitted. Section code: A, access representative section of each end of first mentioned segment of small bowel; A2, access representative of first mentioned segment of small bowel mucosa; A3, area of hemorrhagic mesentery of s econd mentioned segment of mucosa; A4, access representative of hemorrhagic mucosa at open end of second portion of small bowel; A5, access representative of stapled margin from second mentioned [...] 0.2 cm. No gross lesions are identified. Quarrying Manager sections are submitted. Section code: B1, proximal margin en face and tip; B2, access representative cross section. CG/pl MICROSCOPIC DESCRIPTION Performed. [facility] Specimen Tissue Tissue - Appendix structure (body structure) Performing Organization Address City/State/Zipcode Phone Number [facility] [address] [place] [address] [phone] CENTER Type and screen, automated (03/24/2019 12:38 PM CDT)Only the most recent of2 resultswithin the time period is included. ABO/RH AUTOMATED (BEAKER) O POSITIVE [facility] Ab Scrn NEGATIVE [facility] Specimen Blood Performing Organization Address City/State/Zipcode Phone Number [facility] [address] [place] [address] REPORT OF PROCEDURE - ENDOSCOPY URL (03/23/2019 10:14 AM CDT) Narrative Performed At [place] colon (03/21/2019 4:30 PM CDT) Specimen Narrative Performed At FINAL REPORT [facility] Gastrografin enema CLINICAL HISTORY: Evaluate colonic stricture [...] MD Report Verified Date/Time:03/21/2019 17:42:21 Reading Location: [address] Consult Reading Room Procedure Note Interface, External [...] Report Verified Date/Time: 03/21/2019 17:42:21 Reading Location: [facility] B1 C013X Ortho Consult Reading Room Performing Organization Address City/State/Zipcode Phone Number [facility] maryse [place] (03/18/2019 6:18 AM CDT) ABO Grouping O [facility] Rh Factor POS [facility] Specimen Blood Performing Organization Address City/[facility]/Zipcode Phone Number [facility] [address] [place] [address] CT abdomen/pelvis without iv contrast (03/17/2019 4:38 PM CDT) Specimen Narrative Performed At FINAL REPORT [facility] ABDOMINAL AND PELVIS CT DATED 03/17/2019 CLINICAL [...] MD Report Verified Date/Time:03/17/2019 17:04:19 Reading Location: [facility] B1 C013Y CT Body Reading Room Procedure [...] Report Verified Date/Time: 03/17/2019 17:04:19 Reading Location: [facility] B1 C013Y CT Body Reading Room Performing Organization Address City/State/Zipcode Phone Number GE RIS after 04/15/2018 Insurance Payer Benefit Plan / Group Subscriber ID Type Phone Address PENDING [facility] EMERGENCY ADMIT xxxxxxxxx Advance Directives For more information, please contact:[place] [address] [address] [place], [place] [phone] Code Status Date Activated Date Inactivated Comments Full Code 03/17/2019 12:08 PM 04/01/2019 8:31 PM This code status was determined by: Patient
--- OUTSIDE RECORDS SUMMARY | 2019-04-16 09:15 | XMS REPORT ---
:1970 Author Organization [facility] Address [address] [place] [address] Care Team Providers Name Role Phone UNKNOWN, REFFERING Primary Care Provider Unavailable CINDA ROTHMAN Unavailable Unavailable MELA DAVIS Unavailable Unavailable VANIA PERAZA Unavailable Unavailable Problems This patient has no known problems. Allergies, Adverse Reactions, Alerts This patient has no known allergies or adverse reactions. Medications This patient has no known medications. Encounters Start End Encounter Admission Attending Care Care Encounter Date/Time Date/Time Type Type Clinicians Facility Department ID 2017-11-02 2017-11-02 Emergency [facility] [id number] 08:33:00 08:33:00 2017-08-05 2017-08-05 Outpatient [facility] [id number] 00:00:00 00:00:00 2017-07-28 2017-07-28 Outpatient [facility] [id number] 00:00:00 00:00:00 2017-06-24 2017-06-24 Outpatient [facility] [id number] 00:00:00 00:00:00 2017-06-22 2017-06-22 Emergency [facility] [id number] 21:37:29 21:37:29 2017-06-22 2017-06-22 Emergency [facility] [id number] 21:06:00 21:06:00 2017-06-22 2017-06-22 Outpatient [facility] [id number] 10:02:31 10:02:31 2017-06-09 2017-06-09 Outpatient [facility] [id number] 00:00:00 00:00:00 2017-06-09 2017-06-09 Outpatient [facility] [id number] 00:00:00 00:00:00 2017-05-08 2017-05-08 Emergency [facility] [id number] 01:04:44 01:04:44 2017-05-05 2017-05-05 Emergency [facility] [id number] 08:11:00 08:11:00 2017-04-15 2017-04-15 Emergency [facility] [id number] 09:53:00 09:53:00 2017-04-14 2017-04-14 Outpatient [facility] [id number] 13:31:02 13:31:02 Results Test Description Test Time Test Comments Text Results Atomic Results Result Comments CBC W/PLT COUNT & AUTO DIFFERENTIAL 2019-04-04 08:02:00 Test Item Value Reference Range Comments WHITE BLOOD CELL COUNT (BEAKER) (test xtec=412) 4.3 K/ L 3.5-10.5 RED BLOOD CELL COUNT (BEAKER) (test gvok=542) 3.06 M/ L 4.63-6.08 HEMOGLOBIN (BEAKER) (test qtmc=967) 8.8 GM/DL 13.7-17.5 HEMATOCRIT (BEAKER) (test qqxy=313) 28.1 % 40.1-51.0 MEAN CORPUSCULAR VOLUME (BEAKER) (test wcff=862) 91.8 fL 79.0-92.2 MEAN CORPUSCULAR HEMOGLOBIN (BEAKER) (test meht=820) 28.8 pg 25.7-32.2 MEAN CORPUSCULAR HEMOGLOBIN CONC (BEAKER) (test wmpr=147) 31.3 GM/DL 32.3- 36.5 RED CELL DISTRIBUTION WIDTH (BEAKER) (test pvxx=162) 13.3 % 11.6-14.4 PLATELET COUNT (BEAKER) (test wmfc=876) 357 K/CU MM 150-450 MEAN PLATELET VOLUME (BEAKER) (test bnlc=135) 10.0 fL 9.4-12.4 NUCLEATED RED BLOOD CELLS (BEAKER) (test onkg=627) 0 /100 WBC 0-0 (CELLAVISION MANUAL DIFF)2019-04-04 08:02:00 Test Item Value Reference Range Comments NEUTROPHILS - REL (CELLAVISION)(BEAKER) (test 79 % svic=3682) LYMPHOCYTES - REL (CELLAVISION)(BEAKER) (test 15 % pqbb=9252) MONOCYTES - REL (CELLAVISION)(BEAKER) (test 3 % jghs=2065) EOSINOPHILS - REL (CELLAVISION)(BEAKER) (test 3 % yoqk=6333) NEUTROPHILS - ABS (CELLAVISION)(BEAKER) (test 3.40 K/ul 1.78-5.38 fpzx=1150) LYMPHOCYTES - ABS (CELLAVISION)(BEAKER) (test 0.65 K/ul 1.32-3.57 dkgw=4659) MONOCYTES - ABS (CELLAVISION)(BEAKER) (test 0.13 K/uL 0.30-0.82 ckaq=6037) EOSINOPHILS - ABS (CELLAVISION)(BEAKER) (test 0.13 K/uL 0.04-0.54 enrt=6364) TOTAL COUNTED (BEAKER) (test qjon=5267) 100 WBC MORPHOLOGY (BEAKER) (test hqtj=785) Normal PLT MORPHOLOGY (BEAKER) (test wsqw=652) Normal ANISOCYTOSIS (BEAKER) (test dzxa=664) 1+ few MICROCYTES (BEAKER) (test ppum=957) 1+ few ARTIFACT (CELLAVISION)(BEAKER) (test hjji=8582) Present PLATELET CONCENTRATION (CELLAVISION)(BEAKER) (test Adequate raxy=5540) Received comment: User comments: Slide comments: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 [id number] 07:34:00 Test Item Value Reference Range Comments SODIUM (BEAKER) (test 141 meq/L 136-145 wshb=326) POTASSIUM (BEAKER) (test 2.8 meq/L 3.5-5.1 zhpr=565) CHLORIDE (BEAKER) (test 105 meq/L 98-107 zllu=149) CO2 (BEAKER) (test 25 meq/L 22-29 hvwm=739) BLOOD UREA NITROGEN 5 mg/dL 7-21 (BEAKER) (test cbht=987) CREATININE (BEAKER) (test 0.73 mg/dL 0.57-1.25 fbat=619) GLUCOSE RANDOM (BEAKER) 77 mg/dL 70-105 (test gfyq=459) CALCIUM (BEAKER) (test 7.6 mg/dL 8.4-10.2 lkix=297) EGFR (BEAKER) (test 114 mL/min/1.73 sq m ESTIMATED GFR IS NOT lbyk=9961) ACCURATE CREATININE CLEARANCE IN PREDICTING GLOMERULAR FILTRATION RATE. ESTIMATED GFR IS NOT APPLICABLE FOR DIALYSIS PATIENTS. [id number] 07:26:00 Test Item Value Reference Range Comments PHOSPHORUS (BEAKER) (test czsq=550) 3.1 mg/dL 2.3-4.7 [id number] 07:26:00 Test Item Value Reference Range Comments MAGNESIUM (BEAKER) (test euqd=023) 1.6 mg/dL 1.6-2.6 RAD, ABDOMEN/KUB, 1 VIEW [id number] 07:04:00Reason for exam:->ileusFINAL REPORT Abdomen , one view History: Ileus Comparison: 2018 Findings:Moderate diffuse distention of both small and large bowel, most suggestive of ileus. Surgical staplesare seen within the midline. No pneumoperitoneum. No definite bowel pneumatosis or portal venous gas. No calcifications along the expected course of the urinary tract. Impression: Moderate diffuse distention of both small and large bowel, most suggestive of ileus. Signed: Diony Gallegos MDReport Verified Date/Time: 04/03/2019 07:04: 46 Reading Location: [facility] B1 C013X Ortho Consult Reading Room 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 [id number] 06:47:00 Test Item Value Reference Range Comments SODIUM (BEAKER) (test 140 meq/L 136-145 raiw=460) POTASSIUM (BEAKER) (test 2.9 meq/L 3.5-5.1 ujvn=965) CHLORIDE (BEAKER) (test 106 meq/L 98-107 uvnl=975) CO2 (BEAKER) (test 25 meq/L 22-29 dcpy=951) BLOOD UREA NITROGEN 7 mg/dL 7-21 (BEAKER) (test chgu=922) CREATININE (BEAKER) (test 0.72 mg/dL 0.57-1.25 aubf=561) GLUCOSE RANDOM (BEAKER) 72 mg/dL 70-105 (test xrib=931) CALCIUM (BEAKER) (test 7.7 mg/dL 8.4-10.2 gcev=541) EGFR (BEAKER) (test 116 mL/min/1.73 sq m ESTIMATED GFR IS NOT jwea=6446) ACCURATE CREATININE CLEARANCE IN PREDICTING GLOMERULAR FILTRATION RATE. ESTIMATED GFR IS NOT APPLICABLE FOR DIALYSIS PATIENTS. CBC (HEMOGRAM ONLY)2019-04-03 05:20:00 Test Item Value Reference Range Comments WHITE BLOOD CELL COUNT (BEAKER) (test mdmc=928) 4.4 K/ L 3.5-10.5 RED BLOOD CELL COUNT (BEAKER) (test rgns=156) 2.77 M/ L 4.63-6.08 HEMOGLOBIN (BEAKER) (test kbph=365) 8.3 GM/DL 13.7-17.5 HEMATOCRIT (BEAKER) (test dfab=129) 25.5 % 40.1-51.0 MEAN CORPUSCULAR VOLUME (BEAKER) (test cfsd=299) 92.1 fL 79.0-92.2 MEAN CORPUSCULAR HEMOGLOBIN (BEAKER) (test 30.0 pg 25.7-32.2 vpvw=049) MEAN CORPUSCULAR HEMOGLOBIN CONC (BEAKER) (test 32.5 GM/DL 32.3-36.5 vjeo=288) RED CELL DISTRIBUTION WIDTH (BEAKER) (test 13.2 % 11.6-14.4 ajqr=193) PLATELET COUNT (BEAKER) (test lbkm=765) 326 K/CU MM 150-450 MEAN PLATELET VOLUME (BEAKER) (test ifxq=399) 9.7 fL 9.4-12.4 NUCLEATED RED BLOOD CELLS (BEAKER) (test 0 /100 WBC 0-0 gubl=695) URINALYSIS WITH MICROSCOPIC IF [id number] 22:01:00 Test Item Value Reference Range Comments COLOR (BEAKER) (test mfyy=375) Light Yellow CLARITY (BEAKER) (test nrlq=695) Clear SPECIFIC GRAVITY UA (BEAKER) (test vaqx=315) 1.018 1.001-1.035 PH UA (BEAKER) (test fmfy=639) 5.5 5.0-8.0 PROTEIN UA (BEAKER) (test tphy=329) Negative Negative GLUCOSE UA (BEAKER) (test sklm=039) Negative Negative KETONES UA (BEAKER) (test ocsi=192) 100 mg/dL Negative BILIRUBIN UA (BEAKER) (test ehgk=697) Negative Negative BLOOD UA (BEAKER) (test pfjv=730) Moderate Negative NITRITE UA (BEAKER) (test opgj=640) Negative Negative LEUKOCYTE ESTERASE UA (BEAKER) (test zmjy=609) Negative Negative UROBILINOGEN UA (BEAKER) (test qzva=765) 0.2 mg/dL 0.2-1.0 SOURCE(BEAKER) (test ooqa=8643) URINALYSIS [id number] 22:01:00 Test Item Value Reference Range Comments RBC UA (BEAKER) (test xyht=944) 18 /HPF WBC UA (BEAKER) (test knnv=376) 1 /HPF CALCIUM OXALATE CRYSTALS (BEAKER) (test szng=960) Occasional [id number] 05:49:00 Test Item Value Reference Range Comments PHOSPHORUS (BEAKER) (test bujj=056) 2.5 mg/dL 2.3-4.7 [id number] 05:49:00 Test Item Value Reference Range Comments MAGNESIUM (BEAKER) (test yfto=121) 1.7 mg/dL 1.6-2.6 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 [id number] 05:49:00 Test Item Value Reference Range Comments SODIUM (BEAKER) (test 137 meq/L 136-145 ryjp=427) POTASSIUM (BEAKER) (test 3.3 meq/L 3.5-5.1 kouc=761) CHLORIDE (BEAKER) (test 101 meq/L 98-107 bbxm=038) CO2 (BEAKER) (test 24 meq/L 22-29 obmh=692) BLOOD UREA NITROGEN 6 mg/dL 7-21 (BEAKER) (test yrou=600) CREATININE (BEAKER) (test 0.72 mg/dL 0.57-1.25 nhhf=947) GLUCOSE RANDOM (BEAKER) 82 mg/dL 70-105 (test rljv=197) CALCIUM (BEAKER) (test 8.0 mg/dL 8.4-10.2 begx=695) EGFR (BEAKER) (test 116 mL/min/1.73 sq m ESTIMATED GFR IS NOT jbte=3103) ACCURATE CREATININE CLEARANCE IN PREDICTING GLOMERULAR FILTRATION RATE. ESTIMATED GFR IS NOT APPLICABLE FOR DIALYSIS PATIENTS. CBC (HEMOGRAM ONLY)2019-04-01 05:17:00 Test Item Value Reference Range Comments WHITE BLOOD CELL COUNT (BEAKER) (test xlpu=871) 5.6 K/ L 3.5-10.5 RED BLOOD CELL COUNT (BEAKER) (test dlrt=750) 3.28 M/ L 4.63-6.08 HEMOGLOBIN (BEAKER) (test algz=088) 9.7 GM/DL 13.7-17.5 HEMATOCRIT (BEAKER) (test fugp=846) 29.9 % 40.1-51.0 MEAN CORPUSCULAR VOLUME (BEAKER) (test qxlp=717) 91.2 fL 79.0-92.2 MEAN CORPUSCULAR HEMOGLOBIN (BEAKER) (test 29.6 pg 25.7-32.2 tqvi=746) MEAN CORPUSCULAR HEMOGLOBIN CONC (BEAKER) (test 32.4 GM/DL 32.3-36.5 ffrr=961) RED CELL DISTRIBUTION WIDTH (BEAKER) (test 12.9 % 11.6-14.4 bbqy=953) PLATELET COUNT (BEAKER) (test tabl=229) 374 K/CU MM 150-450 MEAN PLATELET VOLUME (BEAKER) (test hrox=212) 9.8 fL 9.4-12.4 NUCLEATED RED BLOOD CELLS (BEAKER) (test 0 /100 WBC 0-0 lpdq=339) 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 [id number] 06:19:00 Test Item Value Reference Range Comments SODIUM (BEAKER) (test 138 meq/L 136-145 swcw=085) POTASSIUM (BEAKER) (test 3.5 meq/L 3.5-5.1 Specimen slightly sabj=850) hemolyzed CHLORIDE (BEAKER) (test 103 meq/L 98-107 ksbz=731) CO2 (BEAKER) (test 24 meq/L 22-29 rlhk=530) BLOOD UREA NITROGEN 7 mg/dL 7-21 (BEAKER) (test wtij=609) CREATININE (BEAKER) (test 0.73 mg/dL 0.57-1.25 Specimen slightly wnwo=424) hemolyzed GLUCOSE RANDOM (BEAKER) 101 mg/dL 70-105 (test jnad=407) CALCIUM (BEAKER) (test 7.9 mg/dL 8.4-10.2 jayt=056) EGFR (BEAKER) (test 114 mL/min/1.73 sq m ESTIMATED GFR IS NOT phyk=1938) ACCURATE CREATININE CLEARANCE IN PREDICTING GLOMERULAR FILTRATION RATE. ESTIMATED GFR IS NOT APPLICABLE FOR DIALYSIS PATIENTS. [id number] 06:10:00 Test Item Value Reference Range Comments MAGNESIUM (BEAKER) (test 1.8 mg/dL 1.6-2.6 Specimen slightly hemolyzed hvhp=311) [id number] 06:10:00 Test Item Value Reference Range Comments PHOSPHORUS (BEAKER) (test 2.5 mg/dL 2.3-4.7 Specimen slightly hemolyzed nupk=603) CBC (HEMOGRAM ONLY)2019-03-31 05:55:00 Test Item Value Reference Range Comments WHITE BLOOD CELL COUNT (BEAKER) (test avcb=761) 6.9 K/ L 3.5-10.5 RED BLOOD CELL COUNT (BEAKER) (test duaa=844) 3.19 M/ L 4.63-6.08 HEMOGLOBIN (BEAKER) (test fcbq=765) 9.5 GM/DL 13.7-17.5 HEMATOCRIT (BEAKER) (test agqe=433) 29.1 % 40.1-51.0 MEAN CORPUSCULAR VOLUME (BEAKER) (test aomf=961) 91.2 fL 79.0-92.2 MEAN CORPUSCULAR HEMOGLOBIN (BEAKER) (test 29.8 pg 25.7-32.2 upaz=104) MEAN CORPUSCULAR HEMOGLOBIN CONC (BEAKER) (test 32.6 GM/DL 32.3-36.5 ujaz=480) RED CELL DISTRIBUTION WIDTH (BEAKER) (test 13.2 % 11.6-14.4 xtky=615) PLATELET COUNT (BEAKER) (test jajs=539) 397 K/CU MM 150-450 MEAN PLATELET VOLUME (BEAKER) (test nzlu=314) 9.7 fL 9.4-12.4 NUCLEATED RED BLOOD CELLS (BEAKER) (test 0 /100 WBC 0-0 vqag=526) CBC (HEMOGRAM ONLY)2019-03-30 05:17:00 Test Item Value Reference Range Comments WHITE BLOOD CELL COUNT (BEAKER) (test tmhw=962) 6.6 K/ L 3.5-10.5 RED BLOOD CELL COUNT (BEAKER) (test ozco=737) 3.24 M/ L 4.63-6.08 HEMOGLOBIN (BEAKER) (test ofde=481) 9.5 GM/DL 13.7-17.5 HEMATOCRIT (BEAKER) (test qhgk=216) 29.7 % 40.1-51.0 MEAN CORPUSCULAR VOLUME (BEAKER) (test jomp=246) 91.7 fL 79.0-92.2 MEAN CORPUSCULAR HEMOGLOBIN (BEAKER) (test 29.3 pg 25.7-32.2 bjkh=276) MEAN CORPUSCULAR HEMOGLOBIN CONC (BEAKER) (test 32.0 GM/DL 32.3-36.5 anwx=478) RED CELL DISTRIBUTION WIDTH (BEAKER) (test 12.8 % 11.6-14.4 xmxs=681) PLATELET COUNT (BEAKER) (test wygp=881) 342 K/CU MM 150-450 MEAN PLATELET VOLUME (BEAKER) (test ungw=225) 9.9 fL 9.4-12.4 NUCLEATED RED BLOOD CELLS (BEAKER) (test 0 /100 WBC 0-0 slcb=462) 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 [id number] 04:57:00 Test Item Value Reference Range Comments SODIUM (BEAKER) (test 134 meq/L 136-145 syeq=873) POTASSIUM (BEAKER) (test 3.6 meq/L 3.5-5.1 wklx=920) CHLORIDE (BEAKER) (test 100 meq/L 98-107 zsyz=817) CO2 (BEAKER) (test 22 meq/L 22-29 klhu=749) BLOOD UREA NITROGEN 7 mg/dL 7-21 (BEAKER) (test jucp=932) CREATININE (BEAKER) (test 0.74 mg/dL 0.57-1.25 mglv=393) GLUCOSE RANDOM (BEAKER) 72 mg/dL 70-105 (test ivzc=431) CALCIUM (BEAKER) (test 7.8 mg/dL 8.4-10.2 cmuf=071) EGFR (BEAKER) (test 112 mL/min/1.73 sq m ESTIMATED GFR IS NOT zkqi=4938) ACCURATE CREATININE CLEARANCE IN PREDICTING GLOMERULAR FILTRATION RATE. ESTIMATED GFR IS NOT APPLICABLE FOR DIALYSIS PATIENTS. [id number] 04:55:00 Test Item Value Reference Range Comments PHOSPHORUS (BEAKER) (test whka=063) 2.6 mg/dL 2.3-4.7 [id number] 04:55:00 Test Item Value Reference Range Comments MAGNESIUM (BEAKER) (test ficf=708) 1.8 mg/dL 1.6-2.6 CT, [id number] 14:16:00FINAL REPORT TECHNIQUE: CT of the abdomen [...] MDReport Verified Date/Time: 03/29/2019 14:16:01 Reading Location: [facility] C013Y CT Body Reading Room RAD, ABDOMEN/KUB, 1 VIEW [id number] 10:23:00Reason for exam:->evaluate ileusFINAL REPORT Technique: Supine radiographs of the abdomen dated 03/29/2019. HISTORY: Evaluate ileus. COMPARISON: Abdominal radiographs dated 03/28/2019 IMPRESSION:There has been no change in the distention of the bowel when compared to prior study. Previously seen pneumoperitoneum has resolved. No abnormal soft tissue mass. Surgical skin carmenza are seen along the midline. No fracture. Signed: Nuria Urbina MDReport Verified Date/Time: 03/29/2019 10:23:29 Reading Location: [facility] Reading Room Electronically signed by: NURIA URBINA MD on 2018 10:23 [facility] (HEMOGRAM ONLY)2019-03-29 08:10:00 Test Item Value Reference Range Comments WHITE BLOOD CELL COUNT (BEAKER) (test pxxk=543) 6.9 K/ L 3.5-10.5 RED BLOOD CELL COUNT (BEAKER) (test nlvf=325) 3.21 M/ L 4.63-6.08 HEMOGLOBIN (BEAKER) (test zwoo=950) 9.4 GM/DL 13.7-17.5 HEMATOCRIT (BEAKER) (test meov=536) 29.7 % 40.1-51.0 MEAN CORPUSCULAR VOLUME (BEAKER) (test jbbn=940) 92.5 fL 79.0-92.2 MEAN CORPUSCULAR HEMOGLOBIN (BEAKER) (test 29.3 pg 25.7-32.2 uowi=981) MEAN CORPUSCULAR HEMOGLOBIN CONC (BEAKER) (test 31.6 GM/DL 32.3-36.5 amte=005) RED CELL DISTRIBUTION WIDTH (BEAKER) (test 13.0 % 11.6-14.4 mxau=551) PLATELET COUNT (BEAKER) (test bobw=024) 312 K/CU MM 150-450 MEAN PLATELET VOLUME (BEAKER) (test wryf=383) 9.4 fL 9.4-12.4 NUCLEATED RED BLOOD CELLS (BEAKER) (test 0 /100 WBC 0-0 gprg=237) [id number] 06:20:00 Test Item Value Reference Range Comments PHOSPHORUS (BEAKER) (test zppz=639) 2.6 mg/dL 2.3-4.7 [id number] 06:20:00 Test Item Value Reference Range Comments MAGNESIUM (BEAKER) (test ehuc=092) 2.0 mg/dL 1.6-2.6 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 [id number] 06:20:00 Test Item Value Reference Range Comments SODIUM (BEAKER) (test 135 meq/L 136-145 cqul=485) POTASSIUM (BEAKER) (test 3.6 meq/L 3.5-5.1 oinz=782) CHLORIDE (BEAKER) (test 99 meq/L 98-107 slpg=121) CO2 (BEAKER) (test 24 meq/L 22-29 icnd=840) BLOOD UREA NITROGEN 9 mg/dL 7-21 (BEAKER) (test whpm=854) CREATININE (BEAKER) (test 0.78 mg/dL 0.57-1.25 wets=701) GLUCOSE RANDOM (BEAKER) 71 mg/dL 70-105 (test ojll=547) CALCIUM (BEAKER) (test 8.0 mg/dL 8.4-10.2 jsrg=566) EGFR (BEAKER) (test 106 mL/min/1.73 sq m ESTIMATED GFR IS NOT dcns=7606) ACCURATE CREATININE CLEARANCE IN PREDICTING GLOMERULAR FILTRATION RATE. ESTIMATED GFR IS NOT APPLICABLE FOR DIALYSIS PATIENTS. RAD, ABDOMEN SERIES W/ UPRIGHT PA [id number] 22:18:00Reason for exam:-> eval ileusFINAL REPORT CLINICAL [...] Date/Time: 03/28/2019 22:18:50 RAD, ABDOMEN/KUB, 1 VIEW [id number] 11:23:00Reason for exam:->abdominal distensionShould this be performed [...] No focal transition pointis identified. Signed: Candido Cruz Verified Date/Time: 2018 11:23:34 Reading Location: [facility] Radiology Reading Room Electronically signed by: CANDIDO CRUZ MD on03/28/2019 11:23 AMTISSUE [id number] 09:00:00Surgical Pathology Report Case: [id number] Authorizing Provider: Graciela Garrison MD Collected: 03/25/2019 1133 Ordering Location: [facility] PERIOPERATIVE Received: 03/25/2019 1527 SERVICES Pathologist: Jordan [...] FOR MALIGNANCY Signing Pathologist Direct Phone Line: [phone] and postop diagnosis: ileostomy statusA. End ileostomy; [...] nodes are not identified in the mesentery. [employer] sections are submitted. Section code: A, in store marketing representative section of each end of first mentioned segment of small bowel; A2 , in store marketing representative of first mentioned segment of small bowel mucosa; A3, area of hemorrhagic mesentery of second mentioned segment of mucosa; A4, in store marketing representative of hemorrhagic mucosa at open end of second portion of small bowel; A5, in store marketing representative of stapled margin from second mentioned [...] 0.2 cm. No gross lesions are identified. [employer] sections are submitted. Section code: B1, proximal margin en face and tip; B2, in store marketing representative cross section. CG/pl Performed.[id number] 06:23:00 Test Item Value Reference Range Comments PHOSPHORUS (BEAKER) (test dplr=190) 2.7 mg/dL 2.3-4.7 [id number] 06:23:00 Test Item Value Reference Range Comments MAGNESIUM (BEAKER) (test srcx=785) 1.9 mg/dL 1.6-2.6 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 [id number] 06:23:00 Test Item Value Reference Range Comments SODIUM (BEAKER) (test 136 meq/L 136-145 fgmn=416) POTASSIUM (BEAKER) (test 3.4 meq/L 3.5-5.1 wujh=086) CHLORIDE (BEAKER) (test 99 meq/L 98-107 qrcp=736) CO2 (BEAKER) (test 27 meq/L 22-29 doek=130) BLOOD UREA NITROGEN 9 mg/dL 7-21 (BEAKER) (test iezr=937) CREATININE (BEAKER) (test 0.85 mg/dL 0.57-1.25 edqk=129) GLUCOSE RANDOM (BEAKER) 80 mg/dL 70-105 (test ovqa=411) CALCIUM (BEAKER) (test 8.4 mg/dL 8.4-10.2 hhre=463) EGFR (BEAKER) (test 96 mL/min/1.73 sq m ESTIMATED GFR IS NOT mjrm=9146) ACCURATE CREATININE CLEARANCE IN PREDICTING GLOMERULAR FILTRATION RATE. ESTIMATED GFR IS NOT APPLICABLE FOR DIALYSIS PATIENTS. [id number] 08:20:00 Test Item Value Reference Range Comments PHOSPHORUS (BEAKER) (test focn=547) 2.6 mg/dL 2.3-4.7 [id number] 08:20:00 Test Item Value Reference Range Comments MAGNESIUM (BEAKER) (test bgfm=270) 1.8 mg/dL 1.6-2.6 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 [id number] 08:20:00 Test Item Value Reference Range Comments SODIUM (BEAKER) (test 135 meq/L 136-145 mqbu=542) POTASSIUM (BEAKER) (test 3.8 meq/L 3.5-5.1 ungz=363) CHLORIDE (BEAKER) (test 101 meq/L 98-107 wunj=254) CO2 (BEAKER) (test 28 meq/L 22-29 jjfa=317) BLOOD UREA NITROGEN 12 mg/dL 7-21 (BEAKER) (test zbvt=551) CREATININE (BEAKER) (test 0.89 mg/dL 0.57-1.25 jlnw=176) GLUCOSE RANDOM (BEAKER) 87 mg/dL 70-105 (test zoem=636) CALCIUM (BEAKER) (test 8.1 mg/dL 8.4-10.2 dmum=045) EGFR (BEAKER) (test 91 mL/min/1.73 sq m ESTIMATED GFR IS NOT xjwo=2767) ACCURATE CREATININE CLEARANCE IN PREDICTING GLOMERULAR FILTRATION RATE. ESTIMATED GFR IS NOT APPLICABLE FOR DIALYSIS PATIENTS. [id number] 06:06:00 Test Item Value Reference Range Comments PHOSPHORUS (BEAKER) (test coos=345) 4.1 mg/dL 2.3-4.7 [id number] 06:06:00 Test Item Value Reference Range Comments MAGNESIUM (BEAKER) (test hhjm=672) 1.8 mg/dL 1.6-2.6 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 [id number] 06:06:00 Test Item Value Reference Range Comments SODIUM (BEAKER) (test 136 meq/L 136-145 zads=590) POTASSIUM (BEAKER) (test 4.5 meq/L 3.5-5.1 hdcl=565) CHLORIDE (BEAKER) (test 106 meq/L 98-107 augo=430) CO2 (BEAKER) (test 25 meq/L 22-29 xayk=528) BLOOD UREA NITROGEN 16 mg/dL 7-21 (BEAKER) (test knig=932) CREATININE (BEAKER) (test 1.04 mg/dL 0.57-1.25 atag=711) GLUCOSE RANDOM (BEAKER) 108 mg/dL 70-105 (test gsni=999) CALCIUM (BEAKER) (test 8.3 mg/dL 8.4-10.2 utmp=206) EGFR (BEAKER) (test 76 mL/min/1.73 sq m ESTIMATED GFR IS NOT mcks=1559) ACCURATE CREATININE CLEARANCE IN PREDICTING GLOMERULAR FILTRATION RATE. ESTIMATED GFR IS NOT APPLICABLE FOR DIALYSIS PATIENTS. [id number] 06:03:00 Test Item Value Reference Range Comments PHOSPHORUS (BEAKER) (test xfol=548) 4.2 mg/dL 2.3-4.7 [id number] 06:03:00 Test Item Value Reference Range Comments MAGNESIUM (BEAKER) (test evwp=236) 2.0 mg/dL 1.6-2.6 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 [id number] 06:03:00 Test Item Value Reference Range Comments SODIUM (BEAKER) (test 136 meq/L 136-145 awlv=440) POTASSIUM (BEAKER) (test 3.9 meq/L 3.5-5.1 hths=577) CHLORIDE (BEAKER) (test 104 meq/L 98-107 jzyg=656) CO2 (BEAKER) (test 23 meq/L 22-29 rprj=907) BLOOD UREA NITROGEN 11 mg/dL 7-21 (BEAKER) (test tesu=366) CREATININE (BEAKER) (test 1.01 mg/dL 0.57-1.25 vvnx=810) GLUCOSE RANDOM (BEAKER) 88 mg/dL 70-105 (test euen=557) CALCIUM (BEAKER) (test 9.2 mg/dL 8.4-10.2 sfgb=327) EGFR (BEAKER) (test 79 mL/min/1.73 sq m ESTIMATED GFR IS NOT aweu=9669) ACCURATE CREATININE CLEARANCE IN PREDICTING GLOMERULAR FILTRATION RATE. ESTIMATED GFR IS NOT APPLICABLE FOR DIALYSIS PATIENTS. CBC (HEMOGRAM ONLY)2019-03-25 05:40:00 Test Item Value Reference Range Comments WHITE BLOOD CELL COUNT (BEAKER) (test hkmk=732) 4.8 K/ L 3.5-10.5 RED BLOOD CELL COUNT (BEAKER) (test vzum=754) 4.10 M/ L 4.63-6.08 HEMOGLOBIN (BEAKER) (test jenk=639) 12.1 GM/DL 13.7-17.5 HEMATOCRIT (BEAKER) (test ecdb=425) 36.6 % 40.1-51.0 MEAN CORPUSCULAR VOLUME (BEAKER) (test goks=442) 89.3 fL 79.0-92.2 MEAN CORPUSCULAR HEMOGLOBIN (BEAKER) (test 29.5 pg 25.7-32.2 umcd=060) MEAN CORPUSCULAR HEMOGLOBIN CONC (BEAKER) (test 33.1 GM/DL 32.3-36.5 dxdt=239) RED CELL DISTRIBUTION WIDTH (BEAKER) (test 13.2 % 11.6-14.4 rwnt=994) PLATELET COUNT (BEAKER) (test fahx=643) 285 K/CU MM 150-450 MEAN PLATELET VOLUME (BEAKER) (test rutu=556) 9.4 fL 9.4-12.4 NUCLEATED RED BLOOD CELLS (BEAKER) (test 0 /100 WBC 0-0 qrqm=110) [id number] 05:52:00 Test Item Value Reference Range Comments PHOSPHORUS (BEAKER) (test wjrk=522) 4.2 mg/dL 2.3-4.7 [id number] 05:52:00 Test Item Value Reference Range Comments MAGNESIUM (BEAKER) (test kwna=720) 1.9 mg/dL 1.6-2.6 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 [id number] 05:52:00 Test Item Value Reference Range Comments SODIUM (BEAKER) (test 136 meq/L 136-145 tgdw=531) POTASSIUM (BEAKER) (test 3.9 meq/L 3.5-5.1 vjrd=459) CHLORIDE (BEAKER) (test 103 meq/L 98-107 qltk=250) CO2 (BEAKER) (test 27 meq/L 22-29 rfqm=707) BLOOD UREA NITROGEN 14 mg/dL 7-21 (BEAKER) (test rxzd=245) CREATININE (BEAKER) (test 0.91 mg/dL 0.57-1.25 jaxs=349) GLUCOSE RANDOM (BEAKER) 85 mg/dL 70-105 (test zvco=246) CALCIUM (BEAKER) (test 8.7 mg/dL 8.4-10.2 zqbc=230) EGFR (BEAKER) (test 89 mL/min/1.73 sq m ESTIMATED GFR IS NOT umgn=8217) ACCURATE CREATININE CLEARANCE IN PREDICTING GLOMERULAR FILTRATION RATE. ESTIMATED GFR IS NOT APPLICABLE FOR DIALYSIS PATIENTS. [id number] 06:51:00 Test Item Value Reference Range Comments PHOSPHORUS (BEAKER) (test wwpg=779) 4.3 mg/dL 2.3-4.7 [id number] 06:51:00 Test Item Value Reference Range Comments MAGNESIUM (BEAKER) (test wfhd=533) 2.0 mg/dL 1.6-2.6 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 [id number] 06:51:00 Test Item Value Reference Range Comments SODIUM (BEAKER) (test 137 meq/L 136-145 fygq=526) POTASSIUM (BEAKER) (test 4.0 meq/L 3.5-5.1 pnpm=474) CHLORIDE (BEAKER) (test 107 meq/L 98-107 dnrs=289) CO2 (BEAKER) (test 25 meq/L 22-29 ksjo=567) BLOOD UREA NITROGEN 19 mg/dL 7-21 (BEAKER) (test sjwr=477) CREATININE (BEAKER) (test 0.88 mg/dL 0.57-1.25 kupl=806) GLUCOSE RANDOM (BEAKER) 91 mg/dL 70-105 (test djsb=670) CALCIUM (BEAKER) (test 8.9 mg/dL 8.4-10.2 mvuv=980) EGFR (BEAKER) (test 92 mL/min/1.73 sq m ESTIMATED GFR IS NOT hoet=5803) ACCURATE CREATININE CLEARANCE IN PREDICTING GLOMERULAR FILTRATION RATE. ESTIMATED GFR IS NOT APPLICABLE FOR DIALYSIS PATIENTS. CBC (HEMOGRAM ONLY)2019-03-23 06:07:00 Test Item Value Reference Range Comments WHITE BLOOD CELL COUNT (BEAKER) (test txrp=399) 5.0 K/ L 3.5-10.5 RED BLOOD CELL COUNT (BEAKER) (test reru=076) 3.76 M/ L 4.63-6.08 HEMOGLOBIN (BEAKER) (test gipj=589) 11.4 GM/DL 13.7-17.5 HEMATOCRIT (BEAKER) (test jttw=144) 34.4 % 40.1-51.0 MEAN CORPUSCULAR VOLUME (BEAKER) (test qfxs=741) 91.5 fL 79.0-92.2 MEAN CORPUSCULAR HEMOGLOBIN (BEAKER) (test 30.3 pg 25.7-32.2 gnza=277) MEAN CORPUSCULAR HEMOGLOBIN CONC (BEAKER) (test 33.1 GM/DL 32.3-36.5 uqjb=388) RED CELL DISTRIBUTION WIDTH (BEAKER) (test 13.5 % 11.6-14.4 mnkw=004) PLATELET COUNT (BEAKER) (test lemq=285) 241 K/CU MM 150-450 MEAN PLATELET VOLUME (BEAKER) (test iqdg=762) 9.7 fL 9.4-12.4 NUCLEATED RED BLOOD CELLS (BEAKER) (test 0 /100 WBC 0-0 ubor=523) TISSUE [id number] 11:50:00Surgical Pathology Report Case: [id number] Authorizing Provider: Mela Davis MD Collected: 03/18/2019 1827 Ordering Location: [facility] PERIOPERATIVE Received: 03/21/2019 0823 SERVICES Pathologist: Jordan Celaya MD Specimen: Small Bowel, NOS A. SMALL BOWEL, ILEOSTOMY PROLAPSE , TAKEDOWN: - ANASTOMOSIS SITE WITH ACTIVE CHRONIC INFLAMMATION AND FOCAL ISCHEMIC CHANGES - MUCOSAL RESECTION MARGINS, NEGATIVE FOR MALIGNANCY - ONE BENIGN LYMPH NODE (0/1) - NEGATIVE FOR DYSPLASIA OR MALIGNANCY Signing Pathologist Direct Phone Line: [phone] signed by Jordan Celaya MD on 03/22/2019 at 11:50 [id number] of ileostomyReceived in a container labeled "small [...] from 0.5 to1.2 cm in greatest dimension. [employer] sections are submitted as follows : A1-A2, mucosal resection margin, en face; A3-A6, in store marketing representative sections of the possible ostomy stump; A7-A11, serial in store marketing representative sections from mucosal resection margin to the possible ostomy stump; A12, two lymph nodes. TH/ plPerformed.[id number] 06:58:00 Test Item Value Reference Range Comments PHOSPHORUS (BEAKER) (test yjjw=717) 3.8 mg/dL 2.3-4.7 [id number] 06:58:00 Test Item Value Reference Range Comments MAGNESIUM (BEAKER) (test rfuo=132) 2.0 mg/dL 1.6-2.6 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 [id number] 06:58:00 Test Item Value Reference Range Comments SODIUM (BEAKER) (test 139 meq/L 136-145 bzno=567) POTASSIUM (BEAKER) (test 3.7 meq/L 3.5-5.1 pcwx=357) CHLORIDE (BEAKER) (test 105 meq/L 98-107 opqa=180) CO2 (BEAKER) (test 28 meq/L 22-29 dchl=423) BLOOD UREA NITROGEN 12 mg/dL 7-21 (BEAKER) (test yior=909) CREATININE (BEAKER) (test 0.82 mg/dL 0.57-1.25 ebip=291) GLUCOSE RANDOM (BEAKER) 93 mg/dL 70-105 (test ptmi=530) CALCIUM (BEAKER) (test 8.8 mg/dL 8.4-10.2 dxlx=715) EGFR (BEAKER) (test 100 mL/min/1.73 sq m ESTIMATED GFR IS NOT rmfw=8631) ACCURATE CREATININE CLEARANCE IN PREDICTING GLOMERULAR FILTRATION RATE. ESTIMATED GFR IS NOT APPLICABLE FOR DIALYSIS PATIENTS. CBC W/PLT COUNT & AUTO [id number] 05:42:00 Test Item Value Reference Range Comments WHITE BLOOD CELL COUNT (BEAKER) (test dfsh=342) 5.0 K/ L 3.5-10.5 RED BLOOD CELL COUNT (BEAKER) (test bnqk=498) 3.85 M/ L 4.63-6.08 HEMOGLOBIN (BEAKER) (test gubf=694) 11.7 GM/DL 13.7-17.5 HEMATOCRIT (BEAKER) (test goev=174) 34.8 % 40.1-51.0 MEAN CORPUSCULAR VOLUME (BEAKER) (test rxqw=327) 90.4 fL 79.0-92.2 MEAN CORPUSCULAR HEMOGLOBIN (BEAKER) (test 30.4 pg 25.7-32.2 ooce=000) MEAN CORPUSCULAR HEMOGLOBIN CONC (BEAKER) (test 33.6 GM/DL 32.3-36.5 zump=280) RED CELL DISTRIBUTION WIDTH (BEAKER) (test 13.7 % 11.6-14.4 qdic=725) PLATELET COUNT (BEAKER) (test csxp=490) 247 K/CU MM 150-450 MEAN PLATELET VOLUME (BEAKER) (test zdjc=356) 11.1 fL 9.4-12.4 NUCLEATED RED BLOOD CELLS (BEAKER) (test 0 /100 WBC 0-0 ojtv=650) NEUTROPHILS RELATIVE PERCENT (BEAKER) (test 60 % gycl=804) LYMPHOCYTES RELATIVE PERCENT (BEAKER) (test 26 % qqzl=654) MONOCYTES RELATIVE PERCENT (BEAKER) (test 9 % atev=387) EOSINOPHILS RELATIVE PERCENT (BEAKER) (test 4 % gqdy=308) BASOPHILS RELATIVE PERCENT (BEAKER) (test 1 % byxb=885) NEUTROPHILS ABSOLUTE COUNT (BEAKER) (test 2.99 K/ L 1.78-5.38 lnjc=655) LYMPHOCYTES ABSOLUTE COUNT (BEAKER) (test 1.30 K/ L 1.32-3.57 cnod=677) MONOCYTES ABSOLUTE COUNT (BEAKER) (test 0.47 K/ L 0.30-0.82 nynf=520) EOSINOPHILS ABSOLUTE COUNT (BEAKER) (test 0.18 K/ L 0.04-0.54 ppsk=727) BASOPHILS ABSOLUTE COUNT (BEAKER) (test 0.04 K/ L 0.01-0.08 fiwv=967) IMMATURE GRANULOCYTES-RELATIVE PERCENT (BEAKER) 1 % 0-1 (test ndqu=9131) [place], [id number] 17:42:00Reason for exam:->evaluate for colon stricture as [...] Number of images obtained: 11 Signed: David Lopezeport Verified Date/Time: 03/21/2019 17:42:21 Reading Location: [facility] C013X [facility] Consult Reading Room [id number] 03:58:00 Test Item Value Reference Range Comments PHOSPHORUS (BEAKER) (test bwsv=377) 3.0 mg/dL 2.3-4.7 [id number] 03:58:00 Test Item Value Reference Range Comments MAGNESIUM (BEAKER) (test mxrd=927) 2.0 mg/dL 1.6-2.6 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 [id number] 03:58:00 Test Item Value Reference Range Comments SODIUM (BEAKER) (test 137 meq/L 136-145 jzgy=749) POTASSIUM (BEAKER) (test 4.0 meq/L 3.5-5.1 oxnr=182) CHLORIDE (BEAKER) (test 104 meq/L 98-107 bgka=398) CO2 (BEAKER) (test 29 meq/L 22-29 nzep=843) BLOOD UREA NITROGEN 10 mg/dL 7-21 (BEAKER) (test cnis=413) CREATININE (BEAKER) (test 0.85 mg/dL 0.57-1.25 pasw=881) GLUCOSE RANDOM (BEAKER) 96 mg/dL 70-105 (test rmkq=329) CALCIUM (BEAKER) (test 8.0 mg/dL 8.4-10.2 fozy=128) EGFR (BEAKER) (test 96 mL/min/1.73 sq m ESTIMATED GFR IS NOT cdjv=3538) ACCURATE CREATININE CLEARANCE IN PREDICTING GLOMERULAR FILTRATION RATE. ESTIMATED GFR IS NOT APPLICABLE FOR DIALYSIS PATIENTS. CBC W/PLT COUNT & AUTO [id number] 03:20:00 Test Item Value Reference Range Comments WHITE BLOOD CELL COUNT (BEAKER) (test aadl=467) 4.8 K/ L 3.5-10.5 RED BLOOD CELL COUNT (BEAKER) (test jutk=392) 3.56 M/ L 4.63-6.08 HEMOGLOBIN (BEAKER) (test oymf=049) 10.7 GM/DL 13.7-17.5 HEMATOCRIT (BEAKER) (test disz=204) 33.3 % 40.1-51.0 MEAN CORPUSCULAR VOLUME (BEAKER) (test iumh=953) 93.5 fL 79.0-92.2 MEAN CORPUSCULAR HEMOGLOBIN (BEAKER) (test 30.1 pg 25.7-32.2 rymv=056) MEAN CORPUSCULAR HEMOGLOBIN CONC (BEAKER) (test 32.1 GM/DL 32.3-36.5 lovb=842) RED CELL DISTRIBUTION WIDTH (BEAKER) (test 13.5 % 11.6-14.4 uknc=292) PLATELET COUNT (BEAKER) (test ltme=495) 196 K/CU MM 150-450 MEAN PLATELET VOLUME (BEAKER) (test xghf=913) 9.8 fL 9.4-12.4 NUCLEATED RED BLOOD CELLS (BEAKER) (test 0 /100 WBC 0-0 xdtn=273) NEUTROPHILS RELATIVE PERCENT (BEAKER) (test 58 % euav=802) LYMPHOCYTES RELATIVE PERCENT (BEAKER) (test 27 % zcks=453) MONOCYTES RELATIVE PERCENT (BEAKER) (test 12 % wion=080) EOSINOPHILS RELATIVE PERCENT (BEAKER) (test 2 % elma=067) BASOPHILS RELATIVE PERCENT (BEAKER) (test 1 % ufvn=878) NEUTROPHILS ABSOLUTE COUNT (BEAKER) (test 2.77 K/ L 1.78-5.38 mpxh=532) LYMPHOCYTES ABSOLUTE COUNT (BEAKER) (test 1.29 K/ L 1.32-3.57 qspd=490) MONOCYTES ABSOLUTE COUNT (BEAKER) (test 0.59 K/ L 0.30-0.82 ymee=915) EOSINOPHILS ABSOLUTE COUNT (BEAKER) (test 0.11 K/ L 0.04-0.54 nqnm=126) BASOPHILS ABSOLUTE COUNT (BEAKER) (test 0.03 K/ L 0.01-0.08 ufld=104) IMMATURE GRANULOCYTES-RELATIVE PERCENT (BEAKER) 0 % 0-1 (test tzxv=4436) 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 [id number] 06:26:00 Test Item Value Reference Range Comments SODIUM (BEAKER) (test 134 meq/L 136-145 aemb=948) POTASSIUM (BEAKER) (test 3.7 meq/L 3.5-5.1 iruo=148) CHLORIDE (BEAKER) (test 103 meq/L 98-107 dann=213) CO2 (BEAKER) (test 26 meq/L 22-29 jdtl=739) BLOOD UREA NITROGEN 15 mg/dL 7-21 (BEAKER) (test dzqg=316) CREATININE (BEAKER) (test 0.84 mg/dL 0.57-1.25 gtbm=543) GLUCOSE RANDOM (BEAKER) 93 mg/dL 70-105 (test dlnb=026) CALCIUM (BEAKER) (test 7.9 mg/dL 8.4-10.2 arat=789) EGFR (BEAKER) (test 97 mL/min/1.73 sq m ESTIMATED GFR IS NOT jayf=0799) ACCURATE CREATININE CLEARANCE IN PREDICTING GLOMERULAR FILTRATION RATE. ESTIMATED GFR IS NOT APPLICABLE FOR DIALYSIS PATIENTS. [id number] 06:05:00 Test Item Value Reference Range Comments PHOSPHORUS (BEAKER) (test bokf=639) 2.2 mg/dL 2.3-4.7 [id number] 06:05:00 Test Item Value Reference Range Comments MAGNESIUM (BEAKER) (test clbk=399) 2.0 mg/dL 1.6-2.6 CBC W/PLT COUNT & AUTO [id number] 05:25:00 Test Item Value Reference Range Comments WHITE BLOOD CELL COUNT (BEAKER) (test qobx=533) 5.9 K/ L 3.5-10.5 RED BLOOD CELL COUNT (BEAKER) (test uryf=852) 3.80 M/ L 4.63-6.08 HEMOGLOBIN (BEAKER) (test gddm=856) 11.4 GM/DL 13.7-17.5 HEMATOCRIT (BEAKER) (test mtek=685) 35.2 % 40.1-51.0 MEAN CORPUSCULAR VOLUME (BEAKER) (test bvoq=093) 92.6 fL 79.0-92.2 MEAN CORPUSCULAR HEMOGLOBIN (BEAKER) (test 30.0 pg 25.7-32.2 kvvb=050) MEAN CORPUSCULAR HEMOGLOBIN CONC (BEAKER) (test 32.4 GM/DL 32.3-36.5 affg=128) RED CELL DISTRIBUTION WIDTH (BEAKER) (test 13.8 % 11.6-14.4 pjrz=652) PLATELET COUNT (BEAKER) (test itcn=963) 201 K/CU MM 150-450 MEAN PLATELET VOLUME (BEAKER) (test jzip=326) 10.2 fL 9.4-12.4 NUCLEATED RED BLOOD CELLS (BEAKER) (test 0 /100 WBC 0-0 isws=370) NEUTROPHILS RELATIVE PERCENT (BEAKER) (test 67 % eikw=739) LYMPHOCYTES RELATIVE PERCENT (BEAKER) (test 21 % xgdz=396) MONOCYTES RELATIVE PERCENT (BEAKER) (test 11 % kugr=718) EOSINOPHILS RELATIVE PERCENT (BEAKER) (test 1 % gzhz=714) BASOPHILS RELATIVE PERCENT (BEAKER) (test 0 % hnrn=409) NEUTROPHILS ABSOLUTE COUNT (BEAKER) (test 3.92 K/ L 1.78-5.38 ghds=690) LYMPHOCYTES ABSOLUTE COUNT (BEAKER) (test 1.25 K/ L 1.32-3.57 kzat=550) MONOCYTES ABSOLUTE COUNT (BEAKER) (test 0.63 K/ L 0.30-0.82 tovo=724) EOSINOPHILS ABSOLUTE COUNT (BEAKER) (test 0.06 K/ L 0.04-0.54 sxjb=095) BASOPHILS ABSOLUTE COUNT (BEAKER) (test 0.02 K/ L 0.01-0.08 fldc=544) IMMATURE GRANULOCYTES-RELATIVE PERCENT (BEAKER) 0 % 0-1 (test xnlw=4318) [id number] 04:31:00 Test Item Value Reference Range Comments PHOSPHORUS (BEAKER) (test cfnj=840) 3.7 mg/dL 2.3-4.7 [id number] 04:31:00 Test Item Value Reference Range Comments MAGNESIUM (BEAKER) (test wvvz=858) 1.9 mg/dL 1.6-2.6 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 [id number] 04:31:00 Test Item Value Reference Range Comments SODIUM (BEAKER) (test 133 meq/L 136-145 rgnu=706) POTASSIUM (BEAKER) (test 4.7 meq/L 3.5-5.1 aghj=871) CHLORIDE (BEAKER) (test 106 meq/L 98-107 xuxi=687) CO2 (BEAKER) (test 19 meq/L 22-29 ixqh=994) BLOOD UREA NITROGEN 19 mg/dL 7-21 (BEAKER) (test woxl=401) CREATININE (BEAKER) (test 1.10 mg/dL 0.57-1.25 liur=991) GLUCOSE RANDOM (BEAKER) 105 mg/dL 70-105 (test dxrd=750) CALCIUM (BEAKER) (test 8.1 mg/dL 8.4-10.2 rygw=075) EGFR (BEAKER) (test 71 mL/min/1.73 sq m ESTIMATED GFR IS NOT kkqz=6145) ACCURATE CREATININE CLEARANCE IN PREDICTING GLOMERULAR FILTRATION RATE. ESTIMATED GFR IS NOT APPLICABLE FOR DIALYSIS PATIENTS. CBC W/PLT COUNT & AUTO [id number] 04:15:00 Test Item Value Reference Range Comments WHITE BLOOD CELL COUNT (BEAKER) (test uxcy=402) 9.9 K/ L 3.5-10.5 RED BLOOD CELL COUNT (BEAKER) (test lmzc=003) 4.34 M/ L 4.63-6.08 HEMOGLOBIN (BEAKER) (test jjsh=736) 13.1 GM/DL 13.7-17.5 HEMATOCRIT (BEAKER) (test wnlx=764) 40.3 % 40.1-51.0 MEAN CORPUSCULAR VOLUME (BEAKER) (test ueah=156) 92.9 fL 79.0-92.2 MEAN CORPUSCULAR HEMOGLOBIN (BEAKER) (test 30.2 pg 25.7-32.2 iuwu=314) MEAN CORPUSCULAR HEMOGLOBIN CONC (BEAKER) (test 32.5 GM/DL 32.3-36.5 kwmm=999) RED CELL DISTRIBUTION WIDTH (BEAKER) (test 14.2 % 11.6-14.4 htlf=461) PLATELET COUNT (BEAKER) (test hbpl=515) 207 K/CU MM 150-450 MEAN PLATELET VOLUME (BEAKER) (test qssq=361) 10.3 fL 9.4-12.4 NUCLEATED RED BLOOD CELLS (BEAKER) (test 0 /100 WBC 0-0 yxak=142) NEUTROPHILS RELATIVE PERCENT (BEAKER) (test 79 % mxtk=486) LYMPHOCYTES RELATIVE PERCENT (BEAKER) (test 12 % dfyg=278) MONOCYTES RELATIVE PERCENT (BEAKER) (test 9 % uovo=641) EOSINOPHILS RELATIVE PERCENT (BEAKER) (test 0 % niym=854) BASOPHILS RELATIVE PERCENT (BEAKER) (test 0 % gswz=032) NEUTROPHILS ABSOLUTE COUNT (BEAKER) (test 7.77 K/ L 1.78-5.38 gimm=245) LYMPHOCYTES ABSOLUTE COUNT (BEAKER) (test 1.17 K/ L 1.32-3.57 onqd=478) MONOCYTES ABSOLUTE COUNT (BEAKER) (test 0.89 K/ L 0.30-0.82 njco=562) EOSINOPHILS ABSOLUTE COUNT (BEAKER) (test 0.00 K/ L 0.04-0.54 sjdu=329) BASOPHILS ABSOLUTE COUNT (BEAKER) (test 0.01 K/ L 0.01-0.08 uvbi=001) IMMATURE GRANULOCYTES-RELATIVE PERCENT (BEAKER) 0 % 0-1 (test izod=8670) [id number] 06:41:00 Test Item Value Reference Range Comments PHOSPHORUS (BEAKER) (test qafb=875) 3.1 mg/dL 2.3-4.7 [id number] 06:41:00 Test Item Value Reference Range Comments MAGNESIUM (BEAKER) (test mamk=455) 1.9 mg/dL 1.6-2.6 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 [id number] 06:41:00 Test Item Value Reference Range Comments SODIUM (BEAKER) (test 136 meq/L 136-145 fqtx=672) POTASSIUM (BEAKER) (test 4.0 meq/L 3.5-5.1 pqrt=322) CHLORIDE (BEAKER) (test 108 meq/L 98-107 flvn=384) CO2 (BEAKER) (test 22 meq/L 22-29 pndg=958) BLOOD UREA NITROGEN 17 mg/dL 7-21 (BEAKER) (test bgkp=141) CREATININE (BEAKER) (test 1.00 mg/dL 0.57-1.25 zzbt=319) GLUCOSE RANDOM (BEAKER) 106 mg/dL 70-105 (test cgfp=638) CALCIUM (BEAKER) (test 8.5 mg/dL 8.4-10.2 urzs=911) EGFR (BEAKER) (test 79 mL/min/1.73 sq m ESTIMATED GFR IS NOT pcsv=3218) ACCURATE CREATININE CLEARANCE IN PREDICTING GLOMERULAR FILTRATION RATE. ESTIMATED GFR IS NOT APPLICABLE FOR DIALYSIS PATIENTS. CBC W/PLT COUNT & AUTO [id number] 06:36:00 Test Item Value Reference Range Comments WHITE BLOOD CELL COUNT (BEAKER) (test ftcc=406) 11.1 K/ L 3.5-10.5 RED BLOOD CELL COUNT (BEAKER) (test rxnj=096) 4.86 M/ L 4.63-6.08 HEMOGLOBIN (BEAKER) (test njzn=784) 14.6 GM/DL 13.7-17.5 HEMATOCRIT (BEAKER) (test wbov=629) 43.7 % 40.1-51.0 MEAN CORPUSCULAR VOLUME (BEAKER) (test fkgm=829) 89.9 fL 79.0-92.2 MEAN CORPUSCULAR HEMOGLOBIN (BEAKER) (test 30.0 pg 25.7-32.2 sbqe=082) MEAN CORPUSCULAR HEMOGLOBIN CONC (BEAKER) (test 33.4 GM/DL 32.3-36.5 jnvo=147) RED CELL DISTRIBUTION WIDTH (BEAKER) (test 14.2 % 11.6-14.4 axdn=810) PLATELET COUNT (BEAKER) (test ekjf=960) 265 K/CU MM 150-450 MEAN PLATELET VOLUME (BEAKER) (test fxqk=140) 10.3 fL 9.4-12.4 NUCLEATED RED BLOOD CELLS (BEAKER) (test 0 /100 WBC 0-0 vifl=553) NEUTROPHILS RELATIVE PERCENT (BEAKER) (test 78 % fwnj=150) LYMPHOCYTES RELATIVE PERCENT (BEAKER) (test 13 % iish=312) MONOCYTES RELATIVE PERCENT (BEAKER) (test 8 % axqj=296) EOSINOPHILS RELATIVE PERCENT (BEAKER) (test 0 % bhko=166) BASOPHILS RELATIVE PERCENT (BEAKER) (test 0 % ubmg=236) NEUTROPHILS ABSOLUTE COUNT (BEAKER) (test 8.60 K/ L 1.78-5.38 nsfm=666) LYMPHOCYTES ABSOLUTE COUNT (BEAKER) (test 1.43 K/ L 1.32-3.57 hucj=679) MONOCYTES ABSOLUTE COUNT (BEAKER) (test 0.92 K/ L 0.30-0.82 pgmw=697) EOSINOPHILS ABSOLUTE COUNT (BEAKER) (test 0.00 K/ L 0.04-0.54 xfkn=292) BASOPHILS ABSOLUTE COUNT (BEAKER) (test 0.04 K/ L 0.01-0.08 xbzv=228) IMMATURE GRANULOCYTES-RELATIVE PERCENT (BEAKER) 1 % 0-1 (test fbsk=8189) CT, [id number] 17:04:00No PO contrastFINAL REPORT ABDOMINAL AND PELVIS [...] MDReport Verified Date/Time: 03/17/2019 17:04:19 Reading Location: [facility] C013Y CT Body Reading Room XR ABDOMEN 2 [id number] 09:03: 45XR ABDOMEN 2 VIEWSLOCATION: [id number]: Colstomy ProlapseCOMPARISON: Chest radiograph 04/15/2017, CTof the [...] Nonspecific, nonobstructive bowel gas pattern.XR CHEST 1 [id number] 11:32: 15EXAM: CHEST ONE VIEWINDICATION: Chest painCOMPARISON: None availableTECHNIQUE : AP view of the chest.FINDINGS: The cardiomediastinal silhouette is normal. The lungs are clearbilaterally. No pneumothoraxor pleural effusion is identified. Theosseous structures are unremarkable.IMPRESSION: No acute cardiopulmonary process.LOCATION: R78Ecebc Type and [id number] 21:21:00 Test Item Value Reference Range Comments ABO type (test code=ABO) O Rh Type (test code=RH) Positive Comprehensive Metabolic [id number] 20:36:00 Test Item Value Reference Range Comments [...] race is not provided, and the patient isAfrican-Swiss, multiply by 1.212. If sex is not provided, and thepatient is female, multiply by 0.742. Results for patients <18 years ofage have not been validated by the MDRD study and should be interpretedwith caution.eGFR Result Interpretation:eGFR > or=60 is in the Normal RangeeGFR < 60 may mean kidney diseaseeGFR < 15 may mean kidney failureRanges recommended by the National Kidney Foundation,http://nkdep.nih .gov Alcohol/Ethanol, [id number] 20:36:00 Test Item Value Reference Range Comments Alcohol, Ethyl (test <0.01 g/dL 0.00-0.01 Intoxicated 0.080 g/dL or code=ETOH) more Prothrombin [id number] 20:00:00 Test Item Value Reference Range Comments PT (test code=PT) 10.10 seconds 9.78-13.35 INR (test code=INR) 0.88 Ratio 0.6-1.2 Partial Thromboplastin [id number] 20:00:00 Test Item Value Reference Range Comments aPTT (test code=PTT) 31.50 seconds 24.39-37.25 CBC with [id number] 19:50:00 Test Item Value Reference Range Comments [...] Lymph Abs (test code=ALYMPH) 2.2 K/cumm 0.5-4.6 Wilkinson Abs (test code=AMONO) 0.4 K/cumm 0.0-1.2 Eos Abs (test code=AEOS) 0.17 K/cumm 0.00-0.74 Baso Abs (test code=ABASO) 0.0 K/cumm 0.00-0.21 83461& PELVIS W/O [id number] 17:36:28CT ABDOMEN AND PELVIS WITHOUT CONTRAST.CLINICAL HISTORY: [...]
[2019-04-16] MEDS ORDERED: Mastisol Adhesive Liq ONE (09:47)
--- NOTE | 2019-04-16 10:03 | ER ---
Nurse's Notes [facility] Name: Rico Mcneill Age: 49 yrs Sex: Male : 1970 Arrival Date: 04/16/2019 Time: 09:12 Bed 20 Private MD: Diagnosis: Encounter for removal of sutures-carmenza Presentation: 04/16 09:36 Presenting complaint: Patient states: Patient had reanastomosis surgery approximately ss 17 days ago and is here hoping to have carmenza removed. Patient reports after he was discharged from hospital they did not set up a follow up appointment. Transition of care: patient was not received from another setting of care. Onset of symptoms is unknown. Risk Assessment: Do you want to hurt yourself or someone else? Patient reports no desire to harm self or others. Initial Sepsis Screen: Does the patient meet any 2 criteria? No. Patient's initial sepsis screen is negative. Does the patient have a suspected source of infection? No. Patient's initial sepsis screen is negative. Care prior to arrival: None. 09:36 Method Of Arrival: Ambulatory 09:36 Acuity: OCTAVIO 5 ss Historical: - Allergies: 09:39 NKDA; ss - PMHx: 09:39 Bipolar disorder; bowel obstruction; colostomy; Hypertension; Hypothyroidism; ss - PSHx: 09:39 Colostomy; Colostomy reversal; ss - Immunization history:: Adult Immunizations up to date. - Social history:: Smoking status: Patient/guardian denies using tobacco. - Ebola Screening: : Patient denies exposure to infectious person Patient denies travel to an Ebola-affected area in the 21 days before illness onset. - Family history:: not pertinent. Screenin:45 Abuse screen: Denies threats or abuse. Nutritional screening: No deficits noted. em Tuberculosis screening: No symptoms or risk factors identified. Fall Risk None identified. Assessment: 09:45 General: Appears in no apparent distress. comfortable, Behavior is calm, cooperative, em Denies fever. Pain: Denies pain. Neuro: Level of Consciousness is awake, alert, obeys commands, Oriented to person, place, time, situation. Cardiovascular: Capillary refill < 3 seconds Patient's skin is warm and dry. Respiratory: Airway is patent Respiratory effort is even, unlabored, Respiratory pattern is regular, symmetrical. Derm: carmenza noted on abdomen, no drainage or redness noted, denies pain Reports. Musculoskeletal: Capillary refill < 3 seconds, Range of motion: intact in all extremities. Vital Signs: 09:39 BP 103 / 81; Pulse 92; Resp 15; Temp 98.5(TE); Pulse Ox 100% on R/A; Weight 77.11 kg; ss Height 6 ft. 1 in. (185.42 cm); Pain 0/10; 09:39 Body Mass Index 22.43 (77.11 kg, 185.42 cm) ED Course: 09:12 Patient arrived in ED. mr 09:33 Rashaun Jiménez MD is Attending Physician. [facility] 09:38 Triage completed. ss 09:39 Arm band placed on right wrist. 09:45 Patient has correct armband on for positive identification. Bed in low position. Call em light in reach. 09:49 Thomas Goncalves LVN is Primary Nurse. em 10:12 No provider procedures requiring assistance completed. Patient did not have IV access em during this emergency room visit. Administered Medications: No medications were administered Outcome: 10:02 Discharge ordered by . [facility] 10:12 Discharged to home ambulatory. em 10:12 Condition: good 10:12 Discharge instructions given to patient, Instructed on discharge instructions, follow up and referral plans. wound care, Demonstrated understanding of instructions, follow-up care, wound care. 10:13 Patient left the ED. em Signatures: Rashaun Jiménez MD MD cha Rivera, Mary mr SachaThomas, KADE BRAUN em Eryn Aceves, BRITTNY RN
--- NOTE | 2019-04-16 10:03 | EDPHYS ---
Physician Documentation [facility] Name: Rico Mcneill Age: 49 yrs Sex: Male : 1970 Arrival Date: 04/16/2019 Time: 09:12 Bed 20 Private MD: Rashaun Cerna HPI: 04/16 09:58 This 49 yrs old Male presents to ER via Ambulatory with complaints of Suture diego Removal. 09:58 The patient has carmenza on the abdomen. Previous treatment: The patient was initially diego treated 14 day(s) ago. Sutures/carmenza progress: The patient has no c/o's. The wound is well-healing with no redness, swelling, discharge, or dehiscence reported. The patient has not experienced similar symptoms in the past. Historical: - Allergies: 09:39 NKDA; ss - PMHx: 09:39 Bipolar disorder; bowel obstruction; colostomy; Hypertension; Hypothyroidism; ss - PSHx: 09:39 Colostomy; Colostomy reversal; ss - Immunization history:: Adult Immunizations up to date. - Social history:: Smoking status: Patient/guardian denies using tobacco. - Ebola Screening: : Patient denies exposure to infectious person Patient denies travel to an Ebola-affected area in the 21 days before illness onset. - Family history:: not pertinent. ROS: 09:58 Constitutional: Negative for fever, chills, and weight loss, Eyes: Negative for injury, diego pain, redness, and discharge, ENT: Negative for injury, pain, and discharge, Neck: Negative for injury, pain, and swelling, Cardiovascular: Negative for chest pain, palpitations, and edema, Respiratory: Negative for shortness of breath, cough, wheezing, and pleuritic chest pain, Back: Negative for injury and pain, : Negative for injury, bleeding, discharge, and swelling, MS/Extremity: Negative for injury and deformity, Skin: Negative for injury, rash, and discoloration, Neuro: Negative for headache, weakness, numbness, tingling, and seizure, Psych: Negative for depression, anxiety, suicide ideation, homicidal ideation, and hallucinations, Allergy/Immunology: Negative for hives, rash, and allergies, Endocrine: Negative for neck swelling, polydipsia, polyuria, polyphagia, and marked weight changes, Hematologic/Lymphatic: Negative for swollen nodes, abnormal bleeding, and unusual bruising. 09:58 Abdomen/GI: Positive for abdominal pain, of the right upper quadrant, left upper quadrant, right lower quadrant and left lower quadrant. Exam: 09:58 Constitutional: This is a well developed, well nourished patient who is awake, alert, diego and in no acute distress. Head/Face: Normocephalic, atraumatic. Eyes: Pupils equal round and reactive to light, extra-ocular motions intact. Lids and lashes normal. Conjunctiva and sclera are non-icteric and not injected. Cornea within normal limits. Periorbital areas with no swelling, redness, or edema. ENT: Nares patent. No nasal discharge, no septal abnormalities noted. Tympanic membranes are normal and external auditory canals are clear. Oropharynx with no redness, swelling, or masses, exudates, or evidence of obstruction, uvula midline. Mucous membranes moist. Neck: Trachea midline, no thyromegaly or masses palpated, and no cervical lymphadenopathy. Supple, full range of motion without nuchal rigidity, or vertebral point tenderness. No Meningismus. Chest/axilla: Normal chest wall appearance and motion. Nontender with no deformity. No lesions are appreciated. Cardiovascular: Regular rate and rhythm with a normal S1 and S2. No gallops, murmurs, or rubs. Normal PMI, no JVD. No pulse deficits. Respiratory: Lungs have equal breath sounds bilaterally, clear to auscultation and percussion. No rales, rhonchi or wheezes noted. No increased work of breathing, no retractions or nasal flaring. Back: No spinal tenderness. No costovertebral tenderness. Full range of motion. Male : Normal genitalia with no discharge or lesions. Skin: Warm, dry with normal turgor. Normal color with no rashes, no lesions, and no evidence of cellulitis. MS/ Extremity: Pulses equal, no cyanosis. Neurovascular intact. Full, normal range of motion. Neuro: Awake and alert, GCS 15, oriented to person, place, time, and situation. Cranial nerves II-XII grossly intact. Motor strength 5/5 in all extremities. Sensory grossly intact. Cerebellar exam normal. Normal gait. Psych: Awake, alert, with orientation to person, place and time. Behavior, mood, and affect are within normal limits. 09:58 Abdomen/GI: Inspection: distension, Bowel sounds: normal, Palpation: nontender, Liver: no appreciated palpable abnormalities, Hernia: not appreciated. Vital Signs: 09:39 BP 103 / 81; Pulse 92; Resp 15; Temp 98.5(TE); Pulse Ox 100% on R/A; Weight 77.11 kg; ss Height 6 ft. 1 in. (185.42 cm); Pain 0/10; 09:39 Body Mass Index 22.43 (77.11 kg, 185.42 cm) ss MDM: 09:33 Patient medically screened. [facility] 10:00 Data reviewed: vital signs, nurses notes. [facility] Administered Medications: No medications were administered Disposition: 04/16/19 10:02 Discharged to Home. Impression: Encounter for removal of sutures - carmenza. - Condition is Stable. - Discharge Instructions: Stitches, Fowler, or Adhesive Wound Closure, Suture Removal, Care After, Incision Care, Adult, Wound Closure Removal, Incision Care, [id number]. - Medication Reconciliation Form, Thank You Letter, Antibiotic Education, Prescription Opioid Use form. - Follow up: Private Physician; When: 2 - 3 days; Reason: Recheck today's complaints, Continuance of care, Re-evaluation by your physician. - Problem is new. - Symptoms have improved. Signatures: Rashaun Jiménez MD MD cha Munoz, Edgar, DIRECTOR BIOINFORMATICS DIRECTOR BIOINFORMATICS Eryn Kapadia RN RN ss Corrections: (The following items were deleted from the chart) 10:13 10:02 04/16/2019 10:02 Discharged to Home. Impression: Encounter for removal of sutures em - carmenza. Condition is Stable. Forms are Medication Reconciliation Form, Thank You Letter, Antibiotic Education, Prescription Opioid Use. Follow up: Private Physician; When: 2 - 3 days; Reason: Recheck today's complaints, Continuance of care, Re-evaluation by your physician. Problem is new. Symptoms have improved. [facility]
[2019-04-16 10:38] VITALS: BP 103/81; TEMP 98.5; O2SAT 100
== END 2019-04-16 10:13 | disposition home or self-care (01) ==
LOC: ER 09:11
DX: Z48.02 Encounter for removal of sutures (principal)
CPT/HCPCS: 99281

== ENCOUNTER 2019-12-11 14:53 | Emergency (ER) | payer SELFPAY ==
--- OUTSIDE RECORDS SUMMARY | 2019-12-11 14:57 | XMS REPORT ---
:1970 Author Organization [facility] t Address [address] [place] [address] Care Team Providers Name Role Phone UNKNOWN Primary Care Provider Unavailable MARK ROTHMAN Unavailable Unavailable NITHIN DAVIS Unavailable Unavailable HOSRANI Unavailable Unavailable Problems This patient has no known problems. Allergies, Adverse Reactions, Alerts This patient has no known allergies or adverse reactions. Medications This patient has no known medications. Encounters Start End Encounter Admission Attending Care Care Encounter Date/Time Date/Time Type Type Clinicians Facility Department ID 2017-11-02 2017-11-02 Emergency [facility] [id number] 44 08:33:00 08:33:00 2017-05-05 2017-05-05 Emergency [facility] [id number] 42 08:11:00 08:11:00 2017-04-15 2017-04-15 Emergency [facility] [id number] 10 09:53:00 09:53:00 Results Test Description Test Time Test Comments Text Results Atomic Results Result Comments CBC W/PLT COUNT & AUTO DIFFERENTIAL 2019-04-04 08:02:00 Test Item Value Reference Range Comments WHITE BLOOD CELL COUNT (BEAKER) (test code = 775) 4.3 K/ L 3.5-10.5 RED BLOOD CELL COUNT (BEAKER) (test code = 761) 3.06 M/ L 4.63-6.08 HEMOGLOBIN (BEAKER) (test code = 410) 8.8 GM/DL 13.7-17.5 HEMATOCRIT (BEAKER) (test code = 411) 28.1 % 40.1-51.0 MEAN CORPUSCULAR VOLUME (BEAKER) (test code = 753) 91.8 fL 79.0-92.2 MEAN CORPUSCULAR HEMOGLOBIN (BEAKER) (test code = 751) 28.8 pg 25.7-32.2 MEAN CORPUSCULAR HEMOGLOBIN CONC (BEAKER) (test code = 752) 31.3 GM/DL 32.3-36.5 RED CELL DISTRIBUTION WIDTH (BEAKER) (test code = 412) 13.3 % 11.6-14.4 PLATELET COUNT (BEAKER) (test code = 756) 357 K/CU MM 150-45 0 MEAN PLATELET VOLUME (BEAKER) (test code = 754) 10.0 fL 9.4-12.4 NUCLEATED RED BLOOD CELLS (BEAKER) (test code = 413) 0 /100 WBC 0-0 (CELLAVISION MANUAL DIFF)2019-04-04 08:02:00 Test Item Value Reference Range Comments NEUTROPHILS - REL (CELLAVISION)(BEAKER) (test code 79 % = 2816) LYMPHOCYTES - REL (CELLAVISION)(BEAKER) (test code 15 % = 2817) MONOCYTES - REL (CELLAVISION)(BEAKER) (test code = 3 % 2818) EOSINOPHILS - REL (CELLAVISION)(BEAKER) (test code 3 % = 2819) NEUTROPHILS - ABS (CELLAVISION)(BEAKER) (test code 3.40 K/ul 1.78-5.38 = 2830) LYMPHOCYTES - ABS (CELLAVISION)(BEAKER) (test code 0.65 K/ul 1.32-3.57 = 2831) MONOCYTES - ABS (CELLAVISION)(BEAKER) (test code = 0.13 K/uL 0.30-0.82 2832) EOSINOPHILS - ABS (CELLAVISION)(BEAKER) (test code 0.13 K/uL 0.04-0.54 = 2834) TOTAL COUNTED (BEAKER) (test code = 1351) 100 WBC MORPHOLOGY (BEAKER) (test code = 487) Normal PLT MORPHOLOGY (BEAKER) (test code = 486) Normal ANISOCYTOSIS (BEAKER) (test code = 961) 1+ few MICROCYTES (BEAKER) (test code = 965) 1+ few ARTIFACT (CELLAVISION)(BEAKER) (test code = 3432) Present PLATELET CONCENTRATION (CELLAVISION)(BEAKER) (test Adequate code = 3438) Received comment: User comments: Slide comments: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 [id number] 07:34:00 Test Item Value Reference Range Comments SODIUM (BEAKER) (test 141 meq/L 136-145 code = 381) POTASSIUM (BEAKER) (test 2.8 meq/L 3.5-5.1 code = 379) CHLORIDE (BEAKER) (test 105 meq/L 98-107 code = 382) CO2 (BEAKER) (test code = 25 meq/L 22-29 355) BLOOD UREA NITROGEN 5 mg/dL 7-21 (BEAKER) (test code = 354) CREATININE (BEAKER) (test 0.73 mg/dL 0.57-1.25 code = 358) GLUCOSE RANDOM (BEAKER) 77 mg/dL 70-105 (test code = 652) CALCIUM (BEAKER) (test 7.6 mg/dL 8.4-10.2 code = 697) EGFR (BEAKER) (test code 114 mL/min/1.73 sq m ES TIMATED GFR IS NOT = 1092) ACCURATE CREA TININE CLEARANCE IN PRE DICTING GLOMERULAR FILTR ATION RATE. ESTIMATED GFR IS NOT APPLICABLE F OR DIALYSIS PATIENT S. [id number] 07:26:00 Test Item Value Reference Range Comments PHOSPHORUS (BEAKER) (test code = 604) 3.1 mg/dL 2.3-4.7 [id number] 07:26:00 Test Item Value Reference Range Comments MAGNESIUM (BEAKER) (test code = 627) 1.6 mg/dL 1.6-2.6 RAD, ABDOMEN/KUB, 1 VIEW [id number] 07:04:00Reason for exam:->ileusFINAL REPORT Abdomen , one view History: Ileus Comparison: 03/29/2019 Findings:Moderate diffuse distention of both small and large bowel, most suggestive of ileus. Surgical staplesare seen within the midline. No pneumoperitoneum. No definite bowel pneumatosis or portal venous gas. No calcifications along the expected course of the urinary tract. Impression:Moderate diffuse distention of both small and large bowel, most suggestive of ileus. Signed: Diony Gallegos MDReport Verified Date/Time: 04/03/2019 07:04:46 Reading Location: [address] Ortho Consult Reading Room 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 [id number] 06:47:00 Test Item Value Reference Range Comments SODIUM (BEAKER) (test 140 meq/L 136-145 code = 381) POTASSIUM (BEAKER) (test 2.9 meq/L 3.5-5.1 code = 379) CHLORIDE (BEAKER) (test 106 meq/L 98-107 code = 382) CO2 (BEAKER) (test code = 25 meq/L 22-29 355) BLOOD UREA NITROGEN 7 mg/dL 7-21 (BEAKER) (test code = 354) CREATININE (BEAKER) (test 0.72 mg/dL 0.57-1.25 code = 358) GLUCOSE RANDOM (BEAKER) 72 mg/dL 70-105 (test code = 652) CALCIUM (BEAKER) (test 7.7 mg/dL 8.4-10.2 code = 697) EGFR (BEAKER) (test code 116 mL/min/1.73 sq m ES TIMATED GFR IS NOT = 1092) ACCURATE CREA TININE CLEARANCE IN PRE DICTING GLOMERULAR FILTR ATION RATE. ESTIMATED GFR IS NOT APPLICABLE F OR DIALYSIS PATIENT S. CBC (HEMOGRAM ONLY)2019-04-03 05:20:00 Test Item Value Reference Range Comments WHITE BLOOD CELL COUNT (BEAKER) (test code = 4.4 K/ L 3.5 -10.5 775) RED BLOOD CELL COUNT (BEAKER) (test code = 761) 2.77 M/ L 4.63-6.08 HEMOGLOBIN (BEAKER) (test code = 410) 8.3 GM/DL 13.7-17.5 HEMATOCRIT (BEAKER) (test code = 411) 25.5 % 40.1-51.0 MEAN CORPUSCULAR VOLUME (BEAKER) (test code = 92.1 fL 79 .0-92.2 753) MEAN CORPUSCULAR HEMOGLOBIN (BEAKER) (test code 30.0 pg 25.7-32.2 = 751) MEAN CORPUSCULAR HEMOGLOBIN CONC (BEAKER) (test 32.5 GM/DL 32.3-36.5 code = 752) RED CELL DISTRIBUTION WIDTH (BEAKER) (test code 13.2 % 11.6-14.4 = 412) PLATELET COUNT (BEAKER) (test code = 756) 326 K/CU MM 150-45 0 MEAN PLATELET VOLUME (BEAKER) (test code = 754) 9.7 fL 9.4-12.4 NUCLEATED RED BLOOD CELLS (BEAKER) (test code = 0 /100 WBC 0-0 413) URINALYSIS WITH MICROSCOPIC IF [id number] 22:01:00 Test Item Value Reference Range Comments COLOR (BEAKER) (test code = 470) Light Yellow CLARITY (BEAKER) (test code = 469) Clear SPECIFIC GRAVITY UA (BEAKER) (test code = 468) 1.018 1 .001-1.035 PH UA (BEAKER) (test code = 467) 5.5 5.0-8.0 PROTEIN UA (BEAKER) (test code = 464) Negative Negative GLUCOSE UA (BEAKER) (test code = 365) Negative Negative KETONES UA (BEAKER) (test code = 371) 100 mg/dL Negative BILIRUBIN UA (BEAKER) (test code = 462) Negative Negative BLOOD UA (BEAKER) (test code = 461) Moderate Negative NITRITE UA (BEAKER) (test code = 465) Negative Negative LEUKOCYTE ESTERASE UA (BEAKER) (test code = Negative Nega tive 466) UROBILINOGEN UA (BEAKER) (test code = 463) 0.2 mg/dL 0.2-1 .0 SOURCE(BEAKER) (test code = 2795) URINALYSIS [id number] 22:01:00 Test Item Value Reference Range Comments RBC UA (BEAKER) (test code = 519) 18 /HPF WBC UA (BEAKER) (test code = 520) 1 /HPF CALCIUM OXALATE CRYSTALS (BEAKER) (test code = Occasional 518) [id number] 05:49:00 Test Item Value Reference Range Comments PHOSPHORUS (BEAKER) (test code = 604) 2.5 mg/dL 2.3-4.7 [id number] 05:49:00 Test Item Value Reference Range Comments MAGNESIUM (BEAKER) (test code = 627) 1.7 mg/dL 1.6-2.6 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 [id number] 05:49:00 Test Item Value Reference Range Comments SODIUM (BEAKER) (test 137 meq/L 136-145 code = 381) POTASSIUM (BEAKER) (test 3.3 meq/L 3.5-5.1 code = 379) CHLORIDE (BEAKER) (test 101 meq/L 98-107 code = 382) CO2 (BEAKER) (test code = 24 meq/L 22-29 355) BLOOD UREA NITROGEN 6 mg/dL 7-21 (BEAKER) (test code = 354) CREATININE (BEAKER) (test 0.72 mg/dL 0.57-1.25 code = 358) GLUCOSE RANDOM (BEAKER) 82 mg/dL 70-105 (test code = 652) CALCIUM (BEAKER) (test 8.0 mg/dL 8.4-10.2 code = 697) EGFR (BEAKER) (test code 116 mL/min/1.73 sq m ES TIMATED GFR IS NOT = 1092) ACCURATE CREA TININE CLEARANCE IN PRE DICTING GLOMERULAR FILTR ATION RATE. ESTIMATED GFR IS NOT APPLICABLE F OR DIALYSIS PATIENT S. CBC (HEMOGRAM ONLY)2019-04-01 05:17:00 Test Item Value Reference Range Comments WHITE BLOOD CELL COUNT (BEAKER) (test code = 5.6 K/ L 3.5 -10.5 775) RED BLOOD CELL COUNT (BEAKER) (test code = 761) 3.28 M/ L 4.63-6.08 HEMOGLOBIN (BEAKER) (test code = 410) 9.7 GM/DL 13.7-17.5 HEMATOCRIT (BEAKER) (test code = 411) 29.9 % 40.1-51.0 MEAN CORPUSCULAR VOLUME (BEAKER) (test code = 91.2 fL 79 .0-92.2 753) MEAN CORPUSCULAR HEMOGLOBIN (BEAKER) (test code 29.6 pg 25.7-32.2 = 751) MEAN CORPUSCULAR HEMOGLOBIN CONC (BEAKER) (test 32.4 GM/DL 32.3-36.5 code = 752) RED CELL DISTRIBUTION WIDTH (BEAKER) (test code 12.9 % 11.6-14.4 = 412) PLATELET COUNT (BEAKER) (test code = 756) 374 K/CU MM 150-45 0 MEAN PLATELET VOLUME (BEAKER) (test code = 754) 9.8 fL 9.4-12.4 NUCLEATED RED BLOOD CELLS (BEAKER) (test code = 0 /100 WBC 0-0 413) 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 [id number] 06:19:00 Test Item Value Reference Range Comments SODIUM (BEAKER) (test 138 meq/L 136-145 code = 381) POTASSIUM (BEAKER) (test 3.5 meq/L 3.5-5.1 Specime n slightly code = 379) hemolyzed CHLORIDE (BEAKER) (test 103 meq/L 98-107 code = 382) CO2 (BEAKER) (test code = 24 meq/L 22-29 355) BLOOD UREA NITROGEN 7 mg/dL 7-21 (BEAKER) (test code = 354) CREATININE (BEAKER) (test 0.73 mg/dL 0.57-1.25 Specim en slightly code = 358) hemolyzed GLUCOSE RANDOM (BEAKER) 101 mg/dL 70-105 (test code = 652) CALCIUM (BEAKER) (test 7.9 mg/dL 8.4-10.2 code = 697) EGFR (BEAKER) (test code 114 mL/min/1.73 sq m ES TIMATED GFR IS NOT = 1092) ACCURATE CREA TININE CLEARANCE IN PRE DICTING GLOMERULAR FILTR ATION RATE. ESTIMATED GFR IS NOT APPLICABLE F OR DIALYSIS PATIENT S. [id number] 06:10:00 Test Item Value Reference Range Comments MAGNESIUM (BEAKER) (test code = 1.8 mg/dL 1.6-2.6 Specimen slightly hemolyzed 627) [id number] 06:10:00 Test Item Value Reference Range Comments PHOSPHORUS (BEAKER) (test code 2.5 mg/dL 2.3-4.7 S pecimen slightly hemolyzed = 604) CBC (HEMOGRAM ONLY)2019-03-31 05:55:00 Test Item Value Reference Range Comments WHITE BLOOD CELL COUNT (BEAKER) (test code = 6.9 K/ L 3.5 -10.5 775) RED BLOOD CELL COUNT (BEAKER) (test code = 761) 3.19 M/ L 4.63-6.08 HEMOGLOBIN (BEAKER) (test code = 410) 9.5 GM/DL 13.7-17.5 HEMATOCRIT (BEAKER) (test code = 411) 29.1 % 40.1-51.0 MEAN CORPUSCULAR VOLUME (BEAKER) (test code = 91.2 fL 79 .0-92.2 753) MEAN CORPUSCULAR HEMOGLOBIN (BEAKER) (test code 29.8 pg 25.7-32.2 = 751) MEAN CORPUSCULAR HEMOGLOBIN CONC (BEAKER) (test 32.6 GM/DL 32.3-36.5 code = 752) RED CELL DISTRIBUTION WIDTH (BEAKER) (test code 13.2 % 11.6-14.4 = 412) PLATELET COUNT (BEAKER) (test code = 756) 397 K/CU MM 150-45 0 MEAN PLATELET VOLUME (BEAKER) (test code = 754) 9.7 fL 9.4-12.4 NUCLEATED RED BLOOD CELLS (BEAKER) (test code = 0 /100 WBC 0-0 413) CBC (HEMOGRAM ONLY)2019-03-30 05:17:00 Test Item Value Reference Range Comments WHITE BLOOD CELL COUNT (BEAKER) (test code = 6.6 K/ L 3.5 -10.5 775) RED BLOOD CELL COUNT (BEAKER) (test code = 761) 3.24 M/ L 4.63-6.08 HEMOGLOBIN (BEAKER) (test code = 410) 9.5 GM/DL 13.7-17.5 HEMATOCRIT (BEAKER) (test code = 411) 29.7 % 40.1-51.0 MEAN CORPUSCULAR VOLUME (BEAKER) (test code = 91.7 fL 79 .0-92.2 753) MEAN CORPUSCULAR HEMOGLOBIN (BEAKER) (test code 29.3 pg 25.7-32.2 = 751) MEAN CORPUSCULAR HEMOGLOBIN CONC (BEAKER) (test 32.0 GM/DL 32.3-36.5 code = 752) RED CELL DISTRIBUTION WIDTH (BEAKER) (test code 12.8 % 11.6-14.4 = 412) PLATELET COUNT (BEAKER) (test code = 756) 342 K/CU MM 150-45 0 MEAN PLATELET VOLUME (BEAKER) (test code = 754) 9.9 fL 9.4-12.4 NUCLEATED RED BLOOD CELLS (BEAKER) (test code = 0 /100 WBC 0-0 413) 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 [id number] 04:57:00 Test Item Value Reference Range Comments SODIUM (BEAKER) (test 134 meq/L 136-145 code = 381) POTASSIUM (BEAKER) (test 3.6 meq/L 3.5-5.1 code = 379) CHLORIDE (BEAKER) (test 100 meq/L 98-107 code = 382) CO2 (BEAKER) (test code = 22 meq/L 22-29 355) BLOOD UREA NITROGEN 7 mg/dL 7-21 (BEAKER) (test code = 354) CREATININE (BEAKER) (test 0.74 mg/dL 0.57-1.25 code = 358) GLUCOSE RANDOM (BEAKER) 72 mg/dL 70-105 (test code = 652) CALCIUM (BEAKER) (test 7.8 mg/dL 8.4-10.2 code = 697) EGFR (BEAKER) (test code 112 mL/min/1.73 sq m ES TIMATED GFR IS NOT = 1092) ACCURATE CREA TININE CLEARANCE IN PRE DICTING GLOMERULAR FILTR ATION RATE. ESTIMATED GFR IS NOT APPLICABLE F OR DIALYSIS PATIENT S. [id number] 04:55:00 Test Item Value Reference Range Comments PHOSPHORUS (BEAKER) (test code = 604) 2.6 mg/dL 2.3-4.7 [id number] 04:55:00 Test Item Value Reference Range Comments MAGNESIUM (BEAKER) (test code = 627) 1.8 mg/dL 1.6-2.6 CT, [id number] 14:16:00FINAL REPORT TECHNIQUE: CT of the abdomen [...] likely represents postsurgical change. Signed: Marsha Kim MDReport Verified Date/Time: 03/29/2019 14:16:01 Reading Location: [facility] C013Y CT Body Reading Room RAD, ABDOMEN/KUB, 1 VIEW [id number] 10:23:00Reason for exam:->evaluate ileusFINAL REPORT Technique: Supine [...] MDReport Verified Date/Time: 03/29/2019 10:23:29 Reading Location: [facility] Mammo Reading Room CBC (HEMOGRAM ONLY)2019-03-29 08:10:00 Test Item Value Reference Range Comments WHITE BLOOD CELL COUNT (BEAKER) (test code = 6.9 K/ L 3.5 -10.5 775) RED BLOOD CELL COUNT (BEAKER) (test code = 761) 3.21 M/ L 4.63-6.08 HEMOGLOBIN (BEAKER) (test code = 410) 9.4 GM/DL 13.7-17.5 HEMATOCRIT (BEAKER) (test code = 411) 29.7 % 40.1-51.0 MEAN CORPUSCULAR VOLUME (BEAKER) (test code = 92.5 fL 79 .0-92.2 753) MEAN CORPUSCULAR HEMOGLOBIN (BEAKER) (test code 29.3 pg 25.7-32.2 = 751) MEAN CORPUSCULAR HEMOGLOBIN CONC (BEAKER) (test 31.6 GM/DL 32.3-36.5 code = 752) RED CELL DISTRIBUTION WIDTH (BEAKER) (test code 13.0 % 11.6-14.4 = 412) PLATELET COUNT (BEAKER) (test code = 756) 312 K/CU MM 150-45 0 MEAN PLATELET VOLUME (BEAKER) (test code = 754) 9.4 fL 9.4-12.4 NUCLEATED RED BLOOD CELLS (BEAKER) (test code = 0 /100 WBC 0-0 413) [id number] 06:20:00 Test Item Value Reference Range Comments PHOSPHORUS (BEAKER) (test code = 604) 2.6 mg/dL 2.3-4.7 [id number] 06:20:00 Test Item Value Reference Range Comments MAGNESIUM (BEAKER) (test code = 627) 2.0 mg/dL 1.6-2.6 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 [id number] 06:20:00 Test Item Value Reference Range Comments SODIUM (BEAKER) (test 135 meq/L 136-145 code = 381) POTASSIUM (BEAKER) (test 3.6 meq/L 3.5-5.1 code = 379) CHLORIDE (BEAKER) (test 99 meq/L 98-107 code = 382) CO2 (BEAKER) (test code = 24 meq/L 22-29 355) BLOOD UREA NITROGEN 9 mg/dL 7-21 (BEAKER) (test code = 354) CREATININE (BEAKER) (test 0.78 mg/dL 0.57-1.25 code = 358) GLUCOSE RANDOM (BEAKER) 71 mg/dL 70-105 (test code = 652) CALCIUM (BEAKER) (test 8.0 mg/dL 8.4-10.2 code = 697) EGFR (GILMAR) (test code 106 mL/min/1.73 sq m ES TIMATED GFR IS NOT = 1092) ACCURATE CREA TININE CLEARANCE IN PRE DICTING GLOMERULAR FILTR ATION RATE. ESTIMATED GFR IS NOT APPLICABLE F OR DIALYSIS PATIENT S. RAD, ABDOMEN SERIES W/ UPRIGHT PA [id number] 22:18:00Reason for exam:- >eval ileusFINAL REPORT CLINICAL HISTORY: eval ileus EXAMINATION: RAD, ABDOMEN SERIES W/UPRIGHT PA CHEST COMPARISON: Plain radiograph the abdomen, same day. FINDINGS: Chest: Normal cardiomediastinal silhouette. No pleural effusion. No focal parenchymal process. No pneumothorax or pneumoper itoneum. No acute osseous abnormalities. Small volume free [...] Date/Time: 03/28/2019 22:18:50 RAD, ABDOMEN/KUB, 1 VIEW [id number] 11:23:00Reason for exam:->abdominal distensionShould this be performed at the bedside?->YesFINAL REPORT RAD, ABDOMEN/KUB, 1 VIEW AP CLINICAL INDICATION: abdominal distension COMPARISON: CT 03/17/2019 TECHNIQUE: AP supine view of the abdomen FINDINGS: Markedly distended stomach, small bowel, and colonic loops. The small bowel loops are somewhat featureless with mural thi ckening. No pneumatosis. Supine positioning limits evaluation for free air. IMPRESSION:Diffuse distended bowel loops with mural thickening, suggestive of ileus or obstruction. No focal transition pointis identified. Signed: Candido Cruz MDReport Verified Date/Time: 03/28/2019 11:23:34 Reading Location: [facility] Radiology Reading Room Electronically signed by: CANDIDO CRUZ MD on03/28/2019 11:23 AMTISSUE [id number] 09:00:00Surgical Pathology Report Case: [id number] Authorizing Provider: Graciela Garrison MD Collected: 03/25/2019 1133 Ordering Location: [facility] Received: 03/25/2019 1527 SERVICES Pathologist: Jordan Celaya MD Specimens: A) - Ileostomy, end ileostomy B) -Appendix A. SMALL BOWEL, END ILEOSTOMY, TAKEDOWN: - ENTERIC WALL WITH ULCERATION, TRANSMURAL ACUTE INFLAMMATION, NECROSIS AND FOCAL INFLAMMATORY CHANGES CONSISTENT WITH DIVERSION COLITIS - VIABLE MARGINS - NEGATIVE FOR DYSPLASIA OR MALIGNANCYB. APPENDIX, APPENDECTOMY: - APPENDIX WITH NO SIGNIFICANT DIAGNOSTIC ABNORMALITY -NEGATIVE FOR MALIGNANCY Signing Pathologist Direct Phone Line: [phone] signed by Jordan Celaya MD on 03/28/2019 at 9:00 [id number] and postop diagnosis: ileostomy statusA. End ileostomy; [...] not grossly identified on either segment. The mu cosa is slightly edematous. No gross lesions are identified. Lymph nodes are not identified in the mesentery. [employer] Analyst sections are submitted. Section code: A, front desk representative section of each end of first mentioned segment of small bowel; A2, front desk representative of first mentioned segment of small bowel mucosa; A3, area of hemorrhagic mesentery of second mentioned segment of mucosa; A4, front desk representative of hemorrhagic mucosa at open end of second portion of small bowel; A5, front desk representative of stapled margin from second mentioned [...] 0.2 cm. No gross lesions are identified. [employer] Analyst s ections are submitted. Section code: B1, proximal margin en face and tip; B2, front desk representative cross section. CG/pl Performed.[id number] 06:23:00 Test Item Value Reference Range Comments PHOSPHORUS (BEAKER) (test code = 604) 2.7 mg/dL 2.3-4.7 [id number] 06:23:00 Test Item Value Reference Range Comments MAGNESIUM (BEAKER) (test code = 627) 1.9 mg/dL 1.6-2.6 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 [id number] 06:23:00 Test Item Value Reference Range Comments SODIUM (BEAKER) (test 136 meq/L 136-145 code = 381) POTASSIUM (BEAKER) (test 3.4 meq/L 3.5-5.1 code = 379) CHLORIDE (BEAKER) (test 99 meq/L 98-107 code = 382) CO2 (BEAKER) (test code = 27 meq/L 22-29 355) BLOOD UREA NITROGEN 9 mg/dL 7-21 (BEAKER) (test code = 354) CREATININE (BEAKER) (test 0.85 mg/dL 0.57-1.25 code = 358) GLUCOSE RANDOM (BEAKER) 80 mg/dL 70-105 (test code = 652) CALCIUM (BEAKER) (test 8.4 mg/dL 8.4-10.2 code = 697) EGFR (BEAKER) (test code 96 mL/min/1.73 sq m EST IMATED GFR IS NOT = 1092) ACCURATE CREA TININE CLEARANCE IN PRE DICTING GLOMERULAR FILTR ATION RATE. ESTIMATED GFR IS NOT APPLICABLE F OR DIALYSIS PATIENT S. [id number] 08:20:00 Test Item Value Reference Range Comments PHOSPHORUS (BEAKER) (test code = 604) 2.6 mg/dL 2.3-4.7 [id number] 08:20:00 Test Item Value Reference Range Comments MAGNESIUM (BEAKER) (test code = 627) 1.8 mg/dL 1.6-2.6 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 [id number] 08:20:00 Test Item Value Reference Range Comments SODIUM (BEAKER) (test 135 meq/L 136-145 code = 381) POTASSIUM (BEAKER) (test 3.8 meq/L 3.5-5.1 code = 379) CHLORIDE (BEAKER) (test 101 meq/L 98-107 code = 382) CO2 (BEAKER) (test code = 28 meq/L 22-29 355) BLOOD UREA NITROGEN 12 mg/dL 7-21 (BEAKER) (test code = 354) CREATININE (BEAKER) (test 0.89 mg/dL 0.57-1.25 code = 358) GLUCOSE RANDOM (BEAKER) 87 mg/dL 70-105 (test code = 652) CALCIUM (BEAKER) (test 8.1 mg/dL 8.4-10.2 code = 697) EGFR (BEAKER) (test code 91 mL/min/1.73 sq m EST IMATED GFR IS NOT = 1092) ACCURATE CREA TININE CLEARANCE IN PRE DICTING GLOMERULAR FILTR ATION RATE. ESTIMATED GFR IS NOT APPLICABLE F OR DIALYSIS PATIENT S. [id number] 06:06:00 Test Item Value Reference Range Comments PHOSPHORUS (BEAKER) (test code = 604) 4.1 mg/dL 2.3-4.7 [id number] 06:06:00 Test Item Value Reference Range Comments MAGNESIUM (BEAKER) (test code = 627) 1.8 mg/dL 1.6-2.6 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 [id number] 06:06:00 Test Item Value Reference Range Comments SODIUM (BEAKER) (test 136 meq/L 136-145 code = 381) POTASSIUM (BEAKER) (test 4.5 meq/L 3.5-5.1 code = 379) CHLORIDE (BEAKER) (test 106 meq/L 98-107 code = 382) CO2 (BEAKER) (test code = 25 meq/L 22-29 355) BLOOD UREA NITROGEN 16 mg/dL 7-21 (BEAKER) (test code = 354) CREATININE (BEAKER) (test 1.04 mg/dL 0.57-1.25 code = 358) GLUCOSE RANDOM (BEAKER) 108 mg/dL 70-105 (test code = 652) CALCIUM (BEAKER) (test 8.3 mg/dL 8.4-10.2 code = 697) EGFR (BEAKER) (test code 76 mL/min/1.73 sq m EST IMATED GFR IS NOT = 1092) ACCURATE CREA TININE CLEARANCE IN PRE DICTING GLOMERULAR FILTR ATION RATE. ESTIMATED GFR IS NOT APPLICABLE F OR DIALYSIS PATIENT S. [id number] 06:03:00 Test Item Value Reference Range Comments PHOSPHORUS (BEAKER) (test code = 604) 4.2 mg/dL 2.3-4.7 [id number] 06:03:00 Test Item Value Reference Range Comments MAGNESIUM (BEAKER) (test code = 627) 2.0 mg/dL 1.6-2.6 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 [id number] 06:03:00 Test Item Value Reference Range Comments SODIUM (BEAKER) (test 136 meq/L 136-145 code = 381) POTASSIUM (BEAKER) (test 3.9 meq/L 3.5-5.1 code = 379) CHLORIDE (BEAKER) (test 104 meq/L 98-107 code = 382) CO2 (BEAKER) (test code = 23 meq/L 22-29 355) BLOOD UREA NITROGEN 11 mg/dL 7-21 (BEAKER) (test code = 354) CREATININE (BEAKER) (test 1.01 mg/dL 0.57-1.25 code = 358) GLUCOSE RANDOM (BEAKER) 88 mg/dL 70-105 (test code = 652) CALCIUM (BEAKER) (test 9.2 mg/dL 8.4-10.2 code = 697) EGFR (BEAKER) (test code 79 mL/min/1.73 sq m EST IMATED GFR IS NOT = 1092) ACCURATE CREA TININE CLEARANCE IN PRE DICTING GLOMERULAR FILTR ATION RATE. ESTIMATED GFR IS NOT APPLICABLE F OR DIALYSIS PATIENT S. CBC (HEMOGRAM ONLY)2019-03-25 05:40:00 Test Item Value Reference Range Comments WHITE BLOOD CELL COUNT (BEAKER) (test code = 4.8 K/ L 3.5 -10.5 775) RED BLOOD CELL COUNT (BEAKER) (test code = 761) 4.10 M/ L 4.63-6.08 HEMOGLOBIN (BEAKER) (test code = 410) 12.1 GM/DL 13.7-17.5 HEMATOCRIT (BEAKER) (test code = 411) 36.6 % 40.1-51.0 MEAN CORPUSCULAR VOLUME (BEAKER) (test code = 89.3 fL 79 .0-92.2 753) MEAN CORPUSCULAR HEMOGLOBIN (BEAKER) (test code 29.5 pg 25.7-32.2 = 751) MEAN CORPUSCULAR HEMOGLOBIN CONC (BEAKER) (test 33.1 GM/DL 32.3-36.5 code = 752) RED CELL DISTRIBUTION WIDTH (BEAKER) (test code 13.2 % 11.6-14.4 = 412) PLATELET COUNT (BEAKER) (test code = 756) 285 K/CU MM 150-45 0 MEAN PLATELET VOLUME (BEAKER) (test code = 754) 9.4 fL 9.4-12.4 NUCLEATED RED BLOOD CELLS (BEAKER) (test code = 0 /100 WBC 0-0 413) [id number] 05:52:00 Test Item Value Reference Range Comments PHOSPHORUS (BEAKER) (test code = 604) 4.2 mg/dL 2.3-4.7 [id number] 05:52:00 Test Item Value Reference Range Comments MAGNESIUM (BEAKER) (test code = 627) 1.9 mg/dL 1.6-2.6 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 [id number] 05:52:00 Test Item Value Reference Range Comments SODIUM (BEAKER) (test 136 meq/L 136-145 code = 381) POTASSIUM (BEAKER) (test 3.9 meq/L 3.5-5.1 code = 379) CHLORIDE (BEAKER) (test 103 meq/L 98-107 code = 382) CO2 (BEAKER) (test code = 27 meq/L 22-29 355) BLOOD UREA NITROGEN 14 mg/dL 7-21 (BEAKER) (test code = 354) CREATININE (BEAKER) (test 0.91 mg/dL 0.57-1.25 code = 358) GLUCOSE RANDOM (BEAKER) 85 mg/dL 70-105 (test code = 652) CALCIUM (BEAKER) (test 8.7 mg/dL 8.4-10.2 code = 697) EGFR (BEAKER) (test code 89 mL/min/1.73 sq m EST IMATED GFR IS NOT = 1092) ACCURATE CREA TININE CLEARANCE IN PRE DICTING GLOMERULAR FILTR ATION RATE. ESTIMATED GFR IS NOT APPLICABLE F OR DIALYSIS PATIENT S. [id number] 06:51:00 Test Item Value Reference Range Comments PHOSPHORUS (BEAKER) (test code = 604) 4.3 mg/dL 2.3-4.7 [id number] 06:51:00 Test Item Value Reference Range Comments MAGNESIUM (BEAKER) (test code = 627) 2.0 mg/dL 1.6-2.6 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 [id number] 06:51:00 Test Item Value Reference Range Comments SODIUM (BEAKER) (test 137 meq/L 136-145 code = 381) POTASSIUM (BEAKER) (test 4.0 meq/L 3.5-5.1 code = 379) CHLORIDE (BEAKER) (test 107 meq/L 98-107 code = 382) CO2 (BEAKER) (test code = 25 meq/L 22-29 355) BLOOD UREA NITROGEN 19 mg/dL 7-21 (BEAKER) (test code = 354) CREATININE (BEAKER) (test 0.88 mg/dL 0.57-1.25 code = 358) GLUCOSE RANDOM (BEAKER) 91 mg/dL 70-105 (test code = 652) CALCIUM (BEAKER) (test 8.9 mg/dL 8.4-10.2 code = 697) EGFR (BEAKER) (test code 92 mL/min/1.73 sq m EST IMATED GFR IS NOT = 1092) ACCURATE CREA TININE CLEARANCE IN PRE DICTING GLOMERULAR FILTR ATION RATE. ESTIMATED GFR IS NOT APPLICABLE F OR DIALYSIS PATIENT S. CBC (HEMOGRAM ONLY)2019-03-23 06:07:00 Test Item Value Reference Range Comments WHITE BLOOD CELL COUNT (BEAKER) (test code = 5.0 K/ L 3.5 -10.5 775) RED BLOOD CELL COUNT (BEAKER) (test code = 761) 3.76 M/ L 4.63-6.08 HEMOGLOBIN (BEAKER) (test code = 410) 11.4 GM/DL 13.7-17.5 HEMATOCRIT (BEAKER) (test code = 411) 34.4 % 40.1-51.0 MEAN CORPUSCULAR VOLUME (BEAKER) (test code = 91.5 fL 79 .0-92.2 753) MEAN CORPUSCULAR HEMOGLOBIN (BEAKER) (test code 30.3 pg 25.7-32.2 = 751) MEAN CORPUSCULAR HEMOGLOBIN CONC (BEAKER) (test 33.1 GM/DL 32.3-36.5 code = 752) RED CELL DISTRIBUTION WIDTH (BEAKER) (test code 13.5 % 11.6-14.4 = 412) PLATELET COUNT (BEAKER) (test code = 756) 241 K/CU MM 150-45 0 MEAN PLATELET VOLUME (BEAKER) (test code = 754) 9.7 fL 9.4-12.4 NUCLEATED RED BLOOD CELLS (BEAKER) (test code = 0 /100 WBC 0-0 413) TISSUE [id number] 11:50:00Surgical Pathology Report Case: [id number] Authorizing Provider: Juan Alberto Davis MD Collected: 03/18/2019 1827 Ordering Location: [facility] Received: 03/21/2019 0823 SERVICES Pathologist: Jordan Celaya MD Specimen: Small Bowel, NOS A. SMALL BOWEL, ILEOSTOMY PROLAPSE, TAKEDOWN: - ANASTOMOSIS SITE WITH ACTIVE CHRONIC INFLAMMATION AND FOCAL ISCHEMIC CHANGES - MUCOSAL RESECTION MARGINS, NEGATIVE FOR MALIGNANCY - ONE BENIGN LYMPH NODE (0/1) - NEGATIVE FOR DYSPLASIA OR MALIGNANCY Signing Pathologist Direct Phone Line: [phone] signed by Jordan Celaya MD on 03/22/2019 at 11:50 [id number] of ileostomyReceived in a c ontainer labeled "small bowel" is a 48 cm [...] reveals two lymph nodes ranging from 0.5 to 1.2 cm in greatest dimension. [employer] Analyst sections are submitted as follows: A1-A2, mucosal resection margin, en face; A3-A6, front desk representative sections of the possible ostomy stump; A7-A11, serial front desk representative sections from mucosal resection margin to the possible ostomy stump; A12, two lymph nodes. TH/plPerformed.[id number] 06:58:00 Test Item Value Reference Range Comments PHOSPHORUS (BEAKER) (test code = 604) 3.8 mg/dL 2.3-4.7 [id number] 06:58:00 Test Item Value Reference Range Comments MAGNESIUM (BEAKER) (test code = 627) 2.0 mg/dL 1.6-2.6 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 [id number] 06:58:00 Test Item Value Reference Range Comments SODIUM (BEAKER) (test 139 meq/L 136-145 code = 381) POTASSIUM (BEAKER) (test 3.7 meq/L 3.5-5.1 code = 379) CHLORIDE (BEAKER) (test 105 meq/L 98-107 code = 382) CO2 (BEAKER) (test code = 28 meq/L 22-29 355) BLOOD UREA NITROGEN 12 mg/dL 7-21 (BEAKER) (test code = 354) CREATININE (BEAKER) (test 0.82 mg/dL 0.57-1.25 code = 358) GLUCOSE RANDOM (BEAKER) 93 mg/dL 70-105 (test code = 652) CALCIUM (BEAKER) (test 8.8 mg/dL 8.4-10.2 code = 697) EGFR (BEAKER) (test code 100 mL/min/1.73 sq m ES TIMATED GFR IS NOT = 1092) ACCURATE CREA TININE CLEARANCE IN PRE DICTING GLOMERULAR FILTR ATION RATE. ESTIMATED GFR IS NOT APPLICABLE F OR DIALYSIS PATIENT S. CBC W/PLT COUNT & AUTO [id number] 05:42:00 Test Item Value Reference Range Comments WHITE BLOOD CELL COUNT (BEAKER) (test code = 5.0 K/ L 3.5 -10.5 775) RED BLOOD CELL COUNT (BEAKER) (test code = 761) 3.85 M/ L 4.63-6.08 HEMOGLOBIN (BEAKER) (test code = 410) 11.7 GM/DL 13.7-17.5 HEMATOCRIT (BEAKER) (test code = 411) 34.8 % 40.1-51.0 MEAN CORPUSCULAR VOLUME (BEAKER) (test code = 90.4 fL 79 .0-92.2 753) MEAN CORPUSCULAR HEMOGLOBIN (BEAKER) (test code 30.4 pg 25.7-32.2 = 751) MEAN CORPUSCULAR HEMOGLOBIN CONC (BEAKER) (test 33.6 GM/DL 32.3-36.5 code = 752) RED CELL DISTRIBUTION WIDTH (BEAKER) (test code 13.7 % 11.6-14.4 = 412) PLATELET COUNT (BEAKER) (test code = 756) 247 K/CU MM 150-45 0 MEAN PLATELET VOLUME (BEAKER) (test code = 754) 11.1 fL 9.4-12.4 NUCLEATED RED BLOOD CELLS (BEAKER) (test code = 0 /100 WBC 0-0 413) NEUTROPHILS RELATIVE PERCENT (BEAKER) (test code 60 % = 429) LYMPHOCYTES RELATIVE PERCENT (BEAKER) (test code 26 % = 430) MONOCYTES RELATIVE PERCENT (BEAKER) (test code = 9 % 431) EOSINOPHILS RELATIVE PERCENT (BEAKER) (test code 4 % = 432) BASOPHILS RELATIVE PERCENT (BEAKER) (test code = 1 % 437) NEUTROPHILS ABSOLUTE COUNT (BEAKER) (test code = 2.99 K/ L 1.78-5.38 670) LYMPHOCYTES ABSOLUTE COUNT (BEAKER) (test code = 1.30 K/ L 1.32-3.57 414) MONOCYTES ABSOLUTE COUNT (BEAKER) (test code = 0.47 K/ L 0 .30-0.82 415) EOSINOPHILS ABSOLUTE COUNT (BEAKER) (test code = 0.18 K/ L 0.04-0.54 416) BASOPHILS ABSOLUTE COUNT (BEAKER) (test code = 0.04 K/ L 0 .01-0.08 417) IMMATURE GRANULOCYTES-RELATIVE PERCENT (BEAKER) 1 % 0-1 (test code = 2801) ALTHEA [id number] 17:42:00Reason for exam:->evaluate for colon stricture as seen on CTFINAL REPORT Gastrografin enema CLINICAL HISTORY: Evaluate colonic stricture DISCUSSION: After the rectal tube is advanced into the rectum and the balloon inflated (performed bythe technologist), Gastrografin is infused into the rectum [...] Lopez Verified Date/Time: 03/21/2019 17:42:21 Reading Location: [facility] C013X [facility] Consult Reading Room [id number] 03:58:00 Test Item Value Reference Range Comments PHOSPHORUS (BEAKER) (test code = 604) 3.0 mg/dL 2.3-4.7 [id number] 03:58:00 Test Item Value Reference Range Comments MAGNESIUM (BEAKER) (test code = 627) 2.0 mg/dL 1.6-2.6 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 [id number] 03:58:00 Test Item Value Reference Range Comments SODIUM (BEAKER) (test 137 meq/L 136-145 code = 381) POTASSIUM (BEAKER) (test 4.0 meq/L 3.5-5.1 code = 379) CHLORIDE (BEAKER) (test 104 meq/L 98-107 code = 382) CO2 (BEAKER) (test code = 29 meq/L 22-29 355) BLOOD UREA NITROGEN 10 mg/dL 7-21 (BEAKER) (test code = 354) CREATININE (BEAKER) (test 0.85 mg/dL 0.57-1.25 code = 358) GLUCOSE RANDOM (BEAKER) 96 mg/dL 70-105 (test code = 652) CALCIUM (BEAKER) (test 8.0 mg/dL 8.4-10.2 code = 697) EGFR (BEAKER) (test code 96 mL/min/1.73 sq m EST IMATED GFR IS NOT = 1092) ACCURATE CREA TININE CLEARANCE IN PRE DICTING GLOMERULAR FILTR ATION RATE. ESTIMATED GFR IS NOT APPLICABLE F OR DIALYSIS PATIENT S. CBC W/PLT COUNT & AUTO [id number] 03:20:00 Test Item Value Reference Range Comments WHITE BLOOD CELL COUNT (BEAKER) (test code = 4.8 K/ L 3.5 -10.5 775) RED BLOOD CELL COUNT (BEAKER) (test code = 761) 3.56 M/ L 4.63-6.08 HEMOGLOBIN (BEAKER) (test code = 410) 10.7 GM/DL 13.7-17.5 HEMATOCRIT (BEAKER) (test code = 411) 33.3 % 40.1-51.0 MEAN CORPUSCULAR VOLUME (BEAKER) (test code = 93.5 fL 79 .0-92.2 753) MEAN CORPUSCULAR HEMOGLOBIN (BEAKER) (test code 30.1 pg 25.7-32.2 = 751) MEAN CORPUSCULAR HEMOGLOBIN CONC (BEAKER) (test 32.1 GM/DL 32.3-36.5 code = 752) RED CELL DISTRIBUTION WIDTH (BEAKER) (test code 13.5 % 11.6-14.4 = 412) PLATELET COUNT (BEAKER) (test code = 756) 196 K/CU MM 150-45 0 MEAN PLATELET VOLUME (BEAKER) (test code = 754) 9.8 fL 9.4-12.4 NUCLEATED RED BLOOD CELLS (BEAKER) (test code = 0 /100 WBC 0-0 413) NEUTROPHILS RELATIVE PERCENT (BEAKER) (test code 58 % = 429) LYMPHOCYTES RELATIVE PERCENT (BEAKER) (test code 27 % = 430) MONOCYTES RELATIVE PERCENT (BEAKER) (test code = 12 % 431) EOSINOPHILS RELATIVE PERCENT (BEAKER) (test code 2 % = 432) BASOPHILS RELATIVE PERCENT (BEAKER) (test code = 1 % 437) NEUTROPHILS ABSOLUTE COUNT (BEAKER) (test code = 2.77 K/ L 1.78-5.38 670) LYMPHOCYTES ABSOLUTE COUNT (BEAKER) (test code = 1.29 K/ L 1.32-3.57 414) MONOCYTES ABSOLUTE COUNT (BEAKER) (test code = 0.59 K/ L 0 .30-0.82 415) EOSINOPHILS ABSOLUTE COUNT (BEAKER) (test code = 0.11 K/ L 0.04-0.54 416) BASOPHILS ABSOLUTE COUNT (BEAKER) (test code = 0.03 K/ L 0 .01-0.08 417) IMMATURE GRANULOCYTES-RELATIVE PERCENT (BEAKER) 0 % 0-1 (test code = 2801) 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 [id number] 06:26:00 Test Item Value Reference Range Comments SODIUM (BEAKER) (test 134 meq/L 136-145 code = 381) POTASSIUM (BEAKER) (test 3.7 meq/L 3.5-5.1 code = 379) CHLORIDE (BEAKER) (test 103 meq/L 98-107 code = 382) CO2 (BEAKER) (test code = 26 meq/L 22-29 355) BLOOD UREA NITROGEN 15 mg/dL 7-21 (BEAKER) (test code = 354) CREATININE (BEAKER) (test 0.84 mg/dL 0.57-1.25 code = 358) GLUCOSE RANDOM (BEAKER) 93 mg/dL 70-105 (test code = 652) CALCIUM (BEAKER) (test 7.9 mg/dL 8.4-10.2 code = 697) EGFR (BEAKER) (test code 97 mL/min/1.73 sq m EST IMATED GFR IS NOT = 1092) ACCURATE CREA TININE CLEARANCE IN PRE DICTING GLOMERULAR FILTR ATION RATE. ESTIMATED GFR IS NOT APPLICABLE F OR DIALYSIS PATIENT S. [id number] 06:05:00 Test Item Value Reference Range Comments PHOSPHORUS (BEAKER) (test code = 604) 2.2 mg/dL 2.3-4.7 [id number] 06:05:00 Test Item Value Reference Range Comments MAGNESIUM (BEAKER) (test code = 627) 2.0 mg/dL 1.6-2.6 CBC W/PLT COUNT & AUTO [id number] 05:25:00 Test Item Value Reference Range Comments WHITE BLOOD CELL COUNT (BEAKER) (test code = 5.9 K/ L 3.5 -10.5 775) RED BLOOD CELL COUNT (BEAKER) (test code = 761) 3.80 M/ L 4.63-6.08 HEMOGLOBIN (BEAKER) (test code = 410) 11.4 GM/DL 13.7-17.5 HEMATOCRIT (BEAKER) (test code = 411) 35.2 % 40.1-51.0 MEAN CORPUSCULAR VOLUME (BEAKER) (test code = 92.6 fL 79 .0-92.2 753) MEAN CORPUSCULAR HEMOGLOBIN (BEAKER) (test code 30.0 pg 25.7-32.2 = 751) MEAN CORPUSCULAR HEMOGLOBIN CONC (BEAKER) (test 32.4 GM/DL 32.3-36.5 code = 752) RED CELL DISTRIBUTION WIDTH (BEAKER) (test code 13.8 % 11.6-14.4 = 412) PLATELET COUNT (BEAKER) (test code = 756) 201 K/CU MM 150-45 0 MEAN PLATELET VOLUME (BEAKER) (test code = 754) 10.2 fL 9.4-12.4 NUCLEATED RED BLOOD CELLS (BEAKER) (test code = 0 /100 WBC 0-0 413) NEUTROPHILS RELATIVE PERCENT (BEAKER) (test code 67 % = 429) LYMPHOCYTES RELATIVE PERCENT (BEAKER) (test code 21 % = 430) MONOCYTES RELATIVE PERCENT (BEAKER) (test code = 11 % 431) EOSINOPHILS RELATIVE PERCENT (BEAKER) (test code 1 % = 432) BASOPHILS RELATIVE PERCENT (BEAKER) (test code = 0 % 437) NEUTROPHILS ABSOLUTE COUNT (BEAKER) (test code = 3.92 K/ L 1.78-5.38 670) LYMPHOCYTES ABSOLUTE COUNT (BEAKER) (test code = 1.25 K/ L 1.32-3.57 414) MONOCYTES ABSOLUTE COUNT (BEAKER) (test code = 0.63 K/ L 0 .30-0.82 415) EOSINOPHILS ABSOLUTE COUNT (BEAKER) (test code = 0.06 K/ L 0.04-0.54 416) BASOPHILS ABSOLUTE COUNT (BEAKER) (test code = 0.02 K/ L 0 .01-0.08 417) IMMATURE GRANULOCYTES-RELATIVE PERCENT (BEAKER) 0 % 0-1 (test code = 2801) [id number] 04:31:00 Test Item Value Reference Range Comments PHOSPHORUS (BEAKER) (test code = 604) 3.7 mg/dL 2.3-4.7 [id number] 04:31:00 Test Item Value Reference Range Comments MAGNESIUM (BEAKER) (test code = 627) 1.9 mg/dL 1.6-2.6 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 [id number] 04:31:00 Test Item Value Reference Range Comments SODIUM (BEAKER) (test 133 meq/L 136-145 code = 381) POTASSIUM (BEAKER) (test 4.7 meq/L 3.5-5.1 code = 379) CHLORIDE (BEAKER) (test 106 meq/L 98-107 code = 382) CO2 (BEAKER) (test code = 19 meq/L 22-29 355) BLOOD UREA NITROGEN 19 mg/dL 7-21 (BEAKER) (test code = 354) CREATININE (BEAKER) (test 1.10 mg/dL 0.57-1.25 code = 358) GLUCOSE RANDOM (BEAKER) 105 mg/dL 70-105 (test code = 652) CALCIUM (BEAKER) (test 8.1 mg/dL 8.4-10.2 code = 697) EGFR (BEAKER) (test code 71 mL/min/1.73 sq m EST IMATED GFR IS NOT = 1092) ACCURATE CREA TININE CLEARANCE IN PRE DICTING GLOMERULAR FILTR ATION RATE. ESTIMATED GFR IS NOT APPLICABLE F OR DIALYSIS PATIENT S. CBC W/PLT COUNT & AUTO [id number] 04:15:00 Test Item Value Reference Range Comments WHITE BLOOD CELL COUNT (BEAKER) (test code = 9.9 K/ L 3.5 -10.5 775) RED BLOOD CELL COUNT (BEAKER) (test code = 761) 4.34 M/ L 4.63-6.08 HEMOGLOBIN (BEAKER) (test code = 410) 13.1 GM/DL 13.7-17.5 HEMATOCRIT (BEAKER) (test code = 411) 40.3 % 40.1-51.0 MEAN CORPUSCULAR VOLUME (BEAKER) (test code = 92.9 fL 79 .0-92.2 753) MEAN CORPUSCULAR HEMOGLOBIN (BEAKER) (test code 30.2 pg 25.7-32.2 = 751) MEAN CORPUSCULAR HEMOGLOBIN CONC (BEAKER) (test 32.5 GM/DL 32.3-36.5 code = 752) RED CELL DISTRIBUTION WIDTH (BEAKER) (test code 14.2 % 11.6-14.4 = 412) PLATELET COUNT (BEAKER) (test code = 756) 207 K/CU MM 150-45 0 MEAN PLATELET VOLUME (BEAKER) (test code = 754) 10.3 fL 9.4-12.4 NUCLEATED RED BLOOD CELLS (BEAKER) (test code = 0 /100 WBC 0-0 413) NEUTROPHILS RELATIVE PERCENT (BEAKER) (test code 79 % = 429) LYMPHOCYTES RELATIVE PERCENT (BEAKER) (test code 12 % = 430) MONOCYTES RELATIVE PERCENT (BEAKER) (test code = 9 % 431) EOSINOPHILS RELATIVE PERCENT (BEAKER) (test code 0 % = 432) BASOPHILS RELATIVE PERCENT (BEAKER) (test code = 0 % 437) NEUTROPHILS ABSOLUTE COUNT (BEAKER) (test code = 7.77 K/ L 1.78-5.38 670) LYMPHOCYTES ABSOLUTE COUNT (BEAKER) (test code = 1.17 K/ L 1.32-3.57 414) MONOCYTES ABSOLUTE COUNT (BEAKER) (test code = 0.89 K/ L 0 .30-0.82 415) EOSINOPHILS ABSOLUTE COUNT (BEAKER) (test code = 0.00 K/ L 0.04-0.54 416) BASOPHILS ABSOLUTE COUNT (BEAKER) (test code = 0.01 K/ L 0 .01-0.08 417) IMMATURE GRANULOCYTES-RELATIVE PERCENT (BEAKER) 0 % 0-1 (test code = 2801) [id number] 06:41:00 Test Item Value Reference Range Comments PHOSPHORUS (BEAKER) (test code = 604) 3.1 mg/dL 2.3-4.7 [id number] 06:41:00 Test Item Value Reference Range Comments MAGNESIUM (BEAKER) (test code = 627) 1.9 mg/dL 1.6-2.6 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 [id number] 06:41:00 Test Item Value Reference Range Comments SODIUM (BEAKER) (test 136 meq/L 136-145 code = 381) POTASSIUM (BEAKER) (test 4.0 meq/L 3.5-5.1 code = 379) CHLORIDE (BEAKER) (test 108 meq/L 98-107 code = 382) CO2 (BEAKER) (test code = 22 meq/L 22-29 355) BLOOD UREA NITROGEN 17 mg/dL 7-21 (BEAKER) (test code = 354) CREATININE (BEAKER) (test 1.00 mg/dL 0.57-1.25 code = 358) GLUCOSE RANDOM (BEAKER) 106 mg/dL 70-105 (test code = 652) CALCIUM (BEAKER) (test 8.5 mg/dL 8.4-10.2 code = 697) EGFR (BEAKER) (test code 79 mL/min/1.73 sq m EST IMATED GFR IS NOT = 1092) ACCURATE CREA TININE CLEARANCE IN PRE DICTING GLOMERULAR FILTR ATION RATE. ESTIMATED GFR IS NOT APPLICABLE F OR DIALYSIS PATIENT S. CBC W/PLT COUNT & AUTO [id number] 06:36:00 Test Item Value Reference Range Comments WHITE BLOOD CELL COUNT (BEAKER) (test code = 11.1 K/ L 3.5 -10.5 775) RED BLOOD CELL COUNT (BEAKER) (test code = 761) 4.86 M/ L 4.63-6.08 HEMOGLOBIN (BEAKER) (test code = 410) 14.6 GM/DL 13.7-17.5 HEMATOCRIT (BEAKER) (test code = 411) 43.7 % 40.1-51.0 MEAN CORPUSCULAR VOLUME (BEAKER) (test code = 89.9 fL 79 .0-92.2 753) MEAN CORPUSCULAR HEMOGLOBIN (BEAKER) (test code 30.0 pg 25.7-32.2 = 751) MEAN CORPUSCULAR HEMOGLOBIN CONC (BEAKER) (test 33.4 GM/DL 32.3-36.5 code = 752) RED CELL DISTRIBUTION WIDTH (BEAKER) (test code 14.2 % 11.6-14.4 = 412) PLATELET COUNT (BEAKER) (test code = 756) 265 K/CU MM 150-45 0 MEAN PLATELET VOLUME (BEAKER) (test code = 754) 10.3 fL 9.4-12.4 NUCLEATED RED BLOOD CELLS (BEAKER) (test code = 0 /100 WBC 0-0 413) NEUTROPHILS RELATIVE PERCENT (BEAKER) (test code 78 % = 429) LYMPHOCYTES RELATIVE PERCENT (BEAKER) (test code 13 % = 430) MONOCYTES RELATIVE PERCENT (BEAKER) (test code = 8 % 431) EOSINOPHILS RELATIVE PERCENT (BEAKER) (test code 0 % = 432) BASOPHILS RELATIVE PERCENT (BEAKER) (test code = 0 % 437) NEUTROPHILS ABSOLUTE COUNT (BEAKER) (test code = 8.60 K/ L 1.78-5.38 670) LYMPHOCYTES ABSOLUTE COUNT (BEAKER) (test code = 1.43 K/ L 1.32-3.57 414) MONOCYTES ABSOLUTE COUNT (BEAKER) (test code = 0.92 K/ L 0 .30-0.82 415) EOSINOPHILS ABSOLUTE COUNT (BEAKER) (test code = 0.00 K/ L 0.04-0.54 416) BASOPHILS ABSOLUTE COUNT (BEAKER) (test code = 0.04 K/ L 0 .01-0.08 417) IMMATURE GRANULOCYTES-RELATIVE PERCENT (BEAKER) 1 % 0-1 (test code = 2801) CT, [id number] 17:04:00No PO contrastFINAL REPORT ABDOMINAL AND PELVIS CT DATED 03/17/2019 CLINICAL INFORMATION: Abdominal pain, unspecifiedlarge prolapse, eval anatomy for potential ileostomy [...] kidneys are normal in size. No hydronephrosis, hydrou reter, urolithiasis is seen. The small and large [...] MDReport Verified Date/Time: 03/17/2019 17:04:19 Reading Location: [facility] B1 C013Y CT Body Reading Room XR ABDOMEN 2 [id number] 09:03:45XR ABDOMEN 2 VIEWSLOCATION: [id number]: Colstomy ProlapseCOMPARISON: Chest radiograph 04/15/2017, CTof the abdomen and pelvis04/14/2017FINDINGS: AP chest and AP supine/upright abdominal radiographs areobtained.The lungs are grossly clear. There is no evidence for pneumothorax. The cardiomediastinal si lhouette is within normal limits. A nonspecific, nonobstructive bowel gas pattern is present.There is no evidence for pneumoperitoneum.There are no acute osseous abnormalities.IMPRESSION: 1. No acutecardiopulmonary abnormalities.2. Nonspecific, nonobstructive bowel gas pattern.XR CHEST 1 [id number] 11:32:15 EXAM: CHEST ONE VIEWINDICATION: Chest painCOMPARISON: None availableTECHNIQUE: AP view of the chest.FINDINGS: The cardiomediastinal silhouette is normal. The lungs are clearbilaterally. No pneumothoraxor pleural effusion is identified. Theosseous structures are unremarkable.IMPRESSION: No acute cardiopulmonary process.LOCATION: [id number] Type and [id number] 21:21:00 Test Item Value Reference Range Comments ABO type (test code = ABO) O Rh Type (test code = RH) Positive Comprehensive Metabolic [id number] 20:36:00 Test Item Value Reference Range Comments Sodium (test code = NA) 137 mmol/L 135-145 Potassium (test code = 4.5 mmol/L 3.5-5.1 K) Chloride (test code = 103 mmol/L 98-105 CL) Carbon Dioxide (test 25 mmol/L 22-29 code = CO2) Glucose (test code = 85 mg/dL 70-115 GLU) Blood Urea Nitrogen 19 mg/dL 6-20 (test code = BUN) Creatinine (test code = 1.1 mg/dL 0.7-1.2 CREAT) Calcium (test code = CA) 9.3 mg/dL 8.3-10.5 Prot Total (test code = 6.7 g/dL 6.4-8.3 TP) Albumin (test code = 4.3 g/dL 3.5-5.2 ALB) A/G Ratio (test code = 1.8 Ratio AGRATIO) Globulin (test code = 2.4 2.9-3.1 GLOB) Bili Total (test code = 0.3 mg/dL 0.1-0.9 TBIL) Alk Phos (test code = 67 U/L 40-129 APHOS) AST (test code = AST) 22 U/L 1-40 HEMOLYZED ALT (test code = ALT) 18 U/L 1-41 BUN/Creatinine Ratio 17.3 (test code = BCRATIO) Anion Gap (test code = 9 mmol/L 7-16 AGAP) Estimated GFR (test code >60 mL/min/1.73m2 eGFR (estimated Glomerular = GFR) Filtration Rate) is an estimated value, calculated from the patient 's serum creatinine using the MDRD equation.It is N OT the patient's actual GFR. The eGFR provides a more clinicallyuseful measure of kidney disease t duckworth serum creatinine alone .This calculation take s sex and race into accoun t, if the informationis pr ovided. If the race is not provided, and the patient isAfrican-Americ an, multiply by 1.21 2. If sex is not provided, and thepatient is fe male, multiply by 0.74 2. Results for patients <18 years ofage have not b een validated by the MDRD study and should be interpretedwith caution.eGFR Res ult Interpretation:e GFR > or = 60 is in the Nor mal RangeeGFR < 60 m ay mean kidney diseaseeG FR < 15 may mean kidney failureRanges recommended by carmen holland [employer],http: //nkdep.nih .gov Alcohol/Ethanol, [id number] 20:36:00 Test Item Value Reference Range Comments Alcohol, Ethyl (test code <0.01 g/dL 0.00-0.01 Intoxi cated 0.080 g/dL or = ETOH) more Prothrombin [id number] 20:00:00 Test Item Value Reference Range Comments PT (test code = PT) 10.10 seconds 9.78-13.35 INR (test code = INR) 0.88 Ratio 0.6-1.2 Partial Thromboplastin [id number] 20:00:00 Test Item Value Reference Range Comments aPTT (test code = PTT) 31.50 seconds 24.39-37.25 CBC with [id number] 19:50:00 Test Item Value Reference Range Comments WBC (test code = WBC) 6.5 K/cumm 4.4-10.5 RBC (test code = RBC) 4.78 M/cumm 4.10-5.70 Hemoglobin (test code = HGB) 14.0 gm/dL 13.4-17.4 Hematocrit (test code = HCT) 44.9 % 38.7-52.0 MCV (test code = MCV) 93.8 fL 80-100 MCH (test code = MCH) 29.2 pg 27.0-32.5 MCHC (test code = MCHC) 31.1 g/dL 32.0-37.5 RDW (test code = RDW) 16.7 % 11.5-14.5 Platelet Count (test code = PLTCT) 208 K/cumm 140-440 MPV (test code = MPV) 8.6 fL Diff Method (test code = DIFFM) Auto Neutrophil (test code = NEUT) 55.7 % 36-70 Lymphocyte (test code = LYMPH) 34.6 % 12-44 Monocyte (test code = MONO) 6.6 % 0-11 Eosinophil (test code = EOS) 2.6 % 0-7 Basophil (test code = BASO) 0.5 % 0-2 Neutro Abs (test code = ANEUT) 3.6 K/cumm 1.6-7.4 Lymph Abs (test code = ALYMPH) 2.2 K/cumm 0.5-4.6 [place] Abs (test code = AMONO) 0.4 K/cumm 0.0-1.2 Eos Abs (test code = AEOS) 0.17 K/cumm 0.00-0.74 Baso Abs (test code = ABASO) 0.0 K/cumm 0.00-0.21 [id number]& PELVIS W/O [id number] 17:36:28CT ABDOMEN AND PELVIS WITHOUT CONTRAST.CLINICAL HISTORY: [...] No intrahepatic mass isidentified. The gallbladder is con tracted. The spleen is normal insize. The pancreas, [...]
[2019-12-11] MEDS ORDERED: NA CHLORIDE 0.9% 2,000 ML ONE (15:18)
[2019-12-11 15:41] LABS: Absolute Lymphocytes (CBC) 1.4 K/uL (0.7-4.9); Basophils % 0.9 % (0-1.3); Hematocrit 36.5 % (39.6-49.0); Lymphocytes % 26.6 % (15.3-44.8); MPV 8.4 fL (7.6-11.3); RBC Red Blood Cell Count 4.11 M/uL (4.33-5.43)
[2019-12-11 15:53] LABS: Albumin 3.6 g/dL (3.4-5.0); Bilirubin Direct 0.1 mg/dL (0-0.2); Bilirubin Total 0.6 mg/dL (0.2-1.0); Potassium 4.3 mmol/L (3.5-5.1); Protein, Total 6.3 g/dL (6.4-8.2)
--- NOTE | 2019-12-11 18:02 | RAD REPORT ---
EXAM DESCRIPTION: CT - Abdomen Pelvis W Contrast - 12/11/2019 5:30 pm CLINICAL HISTORY: ABD PAIN COMPARISON: Abdomen Pelvis W Contrast dated 04/02/2019; Abdomen Pelvis W Contrast dated 10/17/2016 TECHNIQUE: Biphasic, helical CT imaging of the abdomen and pelvis was performed following 100 ml non -ionic IV contrast. Oral contrast was given. All CT scans are performed using dose optimization technique as appropriate and may include automated exposure control or mA/KV adjustment according to patient size. FINDINGS: No suspicious findings in the lung bases. The liver, spleen, and pancreas show no suspicious findings. Gallbladder and biliary tree are also wi thout suspicious finding. Gallstones can be occult on CT imaging. Symmetric renal function is seen with no hydronephrosis or suspicious renal mass. No pyelonephritis o r acute parenchymal process. Urinary bladder is only partially filled. No gross abnormality seen. Acc entuated bladder lindsey can be accounted for by the diminished volume. No prostate acute finding. No a drenal abnormalities. No dilatation of the stomach and no gastric wall thickening or mass. Small bowel loops are not dilate d. No terminal ileum abnormality. No acute appendicitis findings seen. The terminal ileum, tip of the cecum and periappendiceal region unchanged from comparison. Ascending colon and cecum the without ac [place] finding. Patient has significant gas dilatation of the transverse colon. No wall thickening or ma ss. Left colon anastomotic site shows no wall thickening, mass or stricture. No acute colon finding s een. Oral CT contrast has reached the distal rectum. Transverse colon is 10-12 cm in diameter. No mary e air, free fluid or inflammatory stranding. No hernia, mass or bulky lymphadenopathy. No suspicious bony findings. IMPRESSION: Chronic transverse colon dilation slightly worse than seen on the March 2019. Transvers e colon is 10-12 cm in diameter compared to 9-10 cm in 2019. No bowel obstruction. Oral contrast has reached the distal rectum. The left side colon anastomosis sh ows no stricture or mass. No free air, pneumatosis or other surgically emergent finding.
--- NOTE | 2019-12-11 19:15 | ER ---
Nurse's Notes [facility] Name: Rico Mcneill Age: 49 yrs Sex: Male : 1970 Arrival Date: 12/11/2019 Time: 14:57 Bed 8 Private MD: Diagnosis: Generalized abdominal pain;Gas pain Presentation: 12/10 15:01 Chief complaint: EMS states: Diffuse abdominal pain x 3 days, abdomen is round and jl7 distended, soft on palpation. Pt reports mild nausea and loose stool since this morning. Coronavirus screen: Proceed with normal triage. Patient denies a cough. Patient denies shortness of breath or difficulty breathing. Patient denies measured and/or subjective temperature greater than 100.4F prior to today's visit. Patient denies travel on a cruise ship or to a country the [facility] currently lists as an affected area. Patient denies contact with known and/or suspected case of COVID-19. Ebola Screen: No symptoms or risks identified at this time. Initial Sepsis Screen: Does the patient meet any 2 criteria? No. Patient's initial sepsis screen is negative. Does the patient have a suspected source of infection? No. Patient's initial sepsis screen is negative. Risk Assessment: Do you want to hurt yourself or someone else? Patient reports no desire to harm self or others. Onset of symptoms was December 09, 2019. Care prior to arrival: Medication(s) given: Normal saline infusion, 250 mL IV initiated. 20 GA, in the right antecubital area, Glucose check: 94. 15:01 Method Of Arrival: EMS: [facility] 15:01 Acuity: OCTAVIO 3 jl7 Triage Assessment: 15:00 General: Appears in no apparent distress. uncomfortable, Behavior is calm, cooperative, jl7 appropriate for age. Pain: Complains of pain in abdomen diffusely Pain currently is 6 out of 10 on a pain scale. at worst was 10 out of 10 on a pain scale. Pain began 2-3 days ago. Is intermittent. Neuro: Level of Consciousness is awake, alert, obeys commands, Oriented to person, place, time, situation. Cardiovascular: Patient's skin is warm and dry. Respiratory: Airway is patent Respiratory effort is even, unlabored, Respiratory pattern is regular, symmetrical. GI: Abdomen is round distended, Stools are reported to be loose, Last BM was December 11, 2019. Bowel sounds present X 4 quads. hypoactive in right upper quadrant, left upper quadrant, right lower quadrant and left lower quadrant. : No signs and/or symptoms were reported regarding the genitourinary system. Derm: Skin is pink, warm \T\ dry. Historical: - Allergies: 15:18 NKDA; jl7 - Home Meds: 15:18 None [Active]; jl7 - PMHx: 15:18 Bipolar disorder; bowel obstruction; colostomy; Hypertension; Hypothyroidism; jl7 - PSHx: 15:18 Colostomy; Colostomy reversal; jl7 - Immunization history:: Adult Immunizations unknown. - Social history:: Smoking status: Patient reports use of chewing tobacco. Screenin:21 Abuse screen: Denies threats or abuse. Denies injuries from another. Nutritional jl7 screening: No deficits noted. Tuberculosis screening: No symptoms or risk factors identified. Fall Risk IV access (20 points). Total Stanley Fall Scale indicates No Risk (0-24 pts). Assessment: 15:00 General: See triage assessment. jl7 15:35 Reassessment: Pt finished oral contrast, CT notified. jl7 16:00 Reassessment: Patient appears in no apparent distress at this time. No changes from jl7 previously documented assessment. Patient and/or family updated on plan of care and expected duration. Pain level reassessed. Patient is alert, oriented x 3, equal unlabored respirations, skin warm/dry/pink. 17:00 Reassessment: Patient appears in no apparent distress at this time. No changes from jl7 previously documented assessment. Patient and/or family updated on plan of care and expected duration. Pain level reassessed. Patient is alert, oriented x 3, equal unlabored respirations, skin warm/dry/pink. 18:42 Reassessment: Tap water enema done with approximately 500 mL of tap water. Pt jl7 instructed to hold the water for 5 min and attempt to have a BM, pt verbalized understanding. 18:49 Reassessment: Pt sitting on bedside commode at this time. jl7 19:19 Reassessment: Patient states feeling better. General: Appears in no apparent distress. jl7 comfortable, Behavior is calm, cooperative, appropriate for age. Pain: Denies pain. Neuro: Level of Consciousness is awake, alert, obeys commands, Oriented to person, place, time, situation. Cardiovascular: Denies chest pain, Capillary refill < 3 seconds Patient's skin is warm and dry. Respiratory: Airway is patent Respiratory effort is even, unlabored, Respiratory pattern is regular, symmetrical, Denies cough, shortness of breath. GI: Abdomen is round Abd is soft and non tender X 4 quads. Reports BM at 1915, feeling better Patient currently denies abdominal pain. : No signs and/or symptoms were reported regarding the genitourinary system. EENT: No signs and/or symptoms were reported regarding the EENT system. Derm: Skin is intact, Skin is dry, Skin is normal, Skin temperature is warm. Musculoskeletal: Circulation, motion, and sensation intact. Range of motion: intact in all extremities. Vital Signs: 15:01 BP 112 / 61; Pulse 86; Resp 17 S; Temp 98.6(O); Pulse Ox 99% on R/A; Weight 79.38 kg jl7 (R); Height 6 ft. 1 in. (185.42 cm) (R); Pain 6/10; 16:12 BP 118 / 75; Pulse 65; Resp 16 S; Pulse Ox 99% on R/A; jl7 17:16 BP 119 / 77; Pulse 76; Resp 16 S; Pulse Ox 99% on R/A; jl7 18:17 BP 127 / 88; Pulse 76; Resp 16 S; Pulse Ox 100% on R/A; ca1 18:44 BP 135 / 90; Pulse 69; Resp 16 S; Pulse Ox 100% on R/A; jl7 15:01 Body Mass Index 23.09 (79.38 kg, 185.42 cm) jl7 ED Course: 14:57 Patient arrived in ED. em1 14:57 Belem Mcnamara FNP-C [facility] snw 14:57 Theodore Whyte MD is Attending Physician. snw 15:00 Arm band placed on right wrist. jl7 15:01 Abril Noonan RN is Primary Nurse. jl7 15:06 Triage completed. jl7 15:21 Patient has correct armband on for positive identification. Placed in gown. Bed in low jl7 position. Call light in reach. Side rails up X 1. Pulse ox on. NIBP on. 15:21 Maintain EMS IV. Dressing intact. Good blood return noted. Site clean \T\ dry. Gauge \T\ jl 7 site: 20 R AC. 15:21 Initial lab(s) drawn, by ED staff, sent to lab. First set of blood cultures drawn by me.ca1 15:31 Inserted saline lock: 20 gauge in left forearm, using aseptic technique. Blood ca1 collected. 15:42 Second set of blood cultures drawn by me. ca1 17:30 CT Abd/Pelvis - PO and IV Contrast In Process Unspecified. EDMS 18:44 tap water Patient tolerated well. jl7 19:23 No provider procedures requiring assistance completed. IV discontinued, intact, jl7 bleeding controlled, No redness/swelling at site. Pressure dressing applied. Administered Medications: 15:30 Drug: NS 0.9% 1000 ml Route: IV; Rate: 1 bolus; Site: left femoral; ca1 19:00 Follow up: Response: No adverse reaction; IV Status: Completed infusion; IV Intake: jl7 1000ml 16:30 Drug: NS 0.9% 1000 ml Route: IV; Rate: 125 ml/hr; Site: left forearm; ca1 19:24 Follow up: Response: No adverse reaction; IV Status: Order to discontinue infusion jl7 Intake: 19:00 IV: 1000ml; Total: 1000ml. jl7 Outcome: 19:14 Discharge ordered by MD. pj 19:23 Discharged to home ambulatory. jl7 19:23 Condition: stable 19:23 Discharge instructions given to patient, Instructed on discharge instructions, follow up and referral plans. medication usage, Demonstrated understanding of instructions, follow-up care, medications, Prescriptions given X 1. 19:24 Patient left the ED. jl7 Signatures: Dispatcher [employer] EDMS Belem Mcnamara, VEHICLE OPERATOR TECHNICIAN-C VEHICLE OPERATOR TECHNICIAN-Csnw Miah Plummer PA PA jmm Martinez, Eric em1 Abril Noonan RN RN jl7 Sukh Brooks RN RN jd3 Acob, Cheryl, RN RN ca1 Corrections: (The following items were deleted from the chart) 18:49 18:46 Reassessment: Tap water enema done with approximately 500 mL of tap water. Pt jl7 instructed to hold the water for 5 min and attempt to have a BM, pt verbalized understanding jl7 19:25 19:19 General: Appears in no apparent distress. comfortable, Behavior is calm, jd3 cooperative, appropriate for age, [facility] 19:19 Reassessment: Patient states feeling better. [place] [id number] : 19:19 Neuro: Level of Consciousness is awake, alert, obeys commands, Oriented to jd3 person, place, time, situation, [facility] 19:19 Cardiovascular: Denies chest pain, Capillary refill < 3 seconds Patient's skin is jd3 warm and dry. [facility] 19:19 Respiratory: Airway is patent Respiratory effort is even, unlabored, Respiratory jd3 pattern is regular, symmetrical, Denies cough, shortness of breath [facility] : 19:19 GI: Abdomen is round Abd is soft and non tender X 4 quads. Reports BM at 1915, jd3 feeling better Patient currently denies abdominal pain, [facility] 19:19 : No signs and/or symptoms were reported regarding the genitourinary system. [facility] : 19:19 EENT: No signs and/or symptoms were reported regarding the EENT system. [place] [id number] :25 19:19 Derm: Skin is intact, Skin is dry, Skin is normal, Skin temperature is warm [place] [address] : 19:19 Musculoskeletal: Circulation, motion, and sensation intact. Range of motion: jd3 intact in all extremities, [facility]
--- NOTE | 2019-12-11 19:15 | EDPHYS ---
Physician Documentation [facility] Name: Rico Mcneill Age: 49 yrs Sex: Male : 1970 Arrival Date: 12/11/2019 Time: 14:57 Bed 8 Private MD: ED Physician Theodore Whyte HPI: 12/10 15:21 This 49 yrs old Male presents to ER via EMS with complaints of abdominal pain.snw 15:21 The patient presents with abdominal pain that is diffuse. Onset: The symptoms/episode snw began/occurred gradually, 3 day(s) ago, and became persistent. The symptoms do not radiate. Associated signs and symptoms: Pertinent positives: nausea, one episode of loose stool. The symptoms are described as steady. Modifying factors: The symptoms are alleviated by nothing. Severity of pain: At its worst the pain was mild moderate. The patient has experienced similar episodes in the past. The patient has not recently seen a physician. reanastomosis [address] [facility]. Historical: - Allergies: 15:18 NKDA; jl7 - Home Meds: 15:18 None [Active]; jl7 - PMHx: 15:18 Bipolar disorder; bowel obstruction; colostomy; Hypertension; Hypothyroidism; jl7 - PSHx: 15:18 Colostomy; Colostomy reversal; jl7 - Immunization history:: Adult Immunizations unknown. - Social history:: Smoking status: Patient reports use of chewing tobacco. ROS: 15:21 Constitutional: Negative for fever, chills, and weight loss, Eyes: Negative for injury, snw pain, redness, and discharge, ENT: Negative for injury, pain, and discharge, Neck: Negative for injury, pain, and swelling, Cardiovascular: Negative for chest pain, palpitations, and edema, Respiratory: Negative for shortness of breath, cough, wheezing, and pleuritic chest pain, Back: Negative for injury and pain, : Negative for injury, bleeding, discharge, and swelling, MS/Extremity: Negative for injury and deformity, Skin: Negative for injury, rash, and discoloration, Neuro: Negative for headache, weakness, numbness, tingling, and seizure. 15:21 Abdomen/GI: Positive for abdominal pain, nausea, diarrhea. Exam: 15:21 Constitutional: This is a well developed, well nourished patient who is awake, alert, snw and in no acute distress. Head/Face: Normocephalic, atraumatic. Eyes: Pupils equal round and reactive to light, extra-ocular motions intact. Lids and lashes normal. Conjunctiva and sclera are non-icteric and not injected. Cornea within normal limits. Periorbital areas with no swelling, redness, or edema. ENT: Nares patent. No nasal discharge, no septal abnormalities noted. Tympanic membranes are normal and external auditory canals are clear. Oropharynx with no redness, swelling, or masses, exudates, or evidence of obstruction, uvula midline. Mucous membranes moist. Neck: Trachea midline, no thyromegaly or masses palpated, and no cervical lymphadenopathy. Supple, full range of motion without nuchal rigidity, or vertebral point tenderness. No Meningismus. Chest/axilla: Normal chest wall appearance and motion. Nontender with no deformity. No lesions are appreciated. Cardiovascular: Regular rate and rhythm with a normal S1 and S2. No gallops, murmurs, or rubs. Normal PMI, no JVD. No pulse deficits. Respiratory: Lungs have equal breath sounds bilaterally, clear to auscultation and percussion. No rales, rhonchi or wheezes noted. No increased work of breathing, no retractions or nasal flaring. Back: No spinal tenderness. No costovertebral tenderness. Full range of motion. Skin: Warm, dry with normal turgor. Normal color with no rashes, no lesions, and no evidence of cellulitis. MS/ Extremity: Pulses equal, no cyanosis. Neurovascular intact. Full, normal range of motion. Neuro: Awake and alert, GCS 15, oriented to person, place, time, and situation. Cranial nerves II-XII grossly intact. Motor strength 5/5 in all extremities. Sensory grossly intact. Cerebellar exam normal. Normal gait. Psych: Awake, alert, with orientation to person, place and time. Behavior, mood, and affect are within normal limits. 15:21 Abdomen/GI: Inspection: distension, that is moderate, Bowel sounds: diminished, Palpation: mild abdominal tenderness, in all quadrants. Vital Signs: 15:01 BP 112 / 61; Pulse 86; Resp 17 S; Temp 98.6(O); Pulse Ox 99% on R/A; Weight 79.38 kg jl7 (R); Height 6 ft. 1 in. (185.42 cm) (R); Pain 6/10; 16:12 BP 118 / 75; Pulse 65; Resp 16 S; Pulse Ox 99% on R/A; jl7 17:16 BP 119 / 77; Pulse 76; Resp 16 S; Pulse Ox 99% on R/A; jl7 18:17 BP 127 / 88; Pulse 76; Resp 16 S; Pulse Ox 100% on R/A; ca1 18:44 BP 135 / 90; Pulse 69; Resp 16 S; Pulse Ox 100% on R/A; jl7 15:01 Body Mass Index 23.09 (79.38 kg, 185.42 cm) jl7 MDM: 15:10 Patient medically screened. snw 18:03 Data reviewed: vital signs, nurses notes. Data interpreted: Pulse oximetry: on room air snw is 99 %. Interpretation: normal. Counseling: I had a detailed discussion with the patient and/or guardian regarding: the historical points, exam findings, and any diagnostic results supporting the discharge/admit diagnosis, lab results, radiology results, the need for outpatient follow up, to return to the emergency department if symptoms worsen or persist or if there are any questions or concerns that arise at home. Transition of care: After a detail discussion of the patient's case, care is transferred to [facility]. Special discussion: Based on the patient's Hx, exam, and Dx evaluation, there is no indication for emergent surgery or inpatient Tx. It is understood by the patient/guardian that if the Sx's persist or worsen they need to return immediately for re-evaluation. Based on the history and exam findings, there is no indication for further emergent testing or inpatient evaluation. I discussed with the patient/guardian the need to see the primary care provider for further evaluation of the symptoms. 12/10 15:10 Order name: Basic Metabolic Panel; Complete Time: 15:58 snw 12/10 15:10 Order name: CBC with Diff; Complete Time: 15:51 snw 12/10 15:10 Order name: Creatinine for Radiology; Complete Time: 15:51 snw 12/10 15:10 Order name: Hepatic Function; Complete Time: 15:58 snw 12/10 15:10 Order name: Lipase; Complete Time: 15:58 snw 12/10 15:10 Order name: Blood Culture Adult (2) snw 12/10 15:10 Order name: IV Saline Lock; Complete Time: 15:31 snw 12/10 15:10 Order name: Labs collected and sent; Complete Time: 15:31 snw 12/10 15:10 Order name: CT Abd/Pelvis - PO and IV Contrast; Complete Time: 18:04 snw 12/10 15:10 Order name: Lactate; Complete Time: 15:58 snw 12/10 17:39 Order name: Misc. Order: tap water enema; Complete Time: 18:42 snw Administered Medications: 15:30 Drug: NS 0.9% 1000 ml Route: IV; Rate: 1 bolus; Site: left femoral; ca1 19:00 Follow up: Response: No adverse reaction; IV Status: Completed infusion; IV Intake: jl7 1000ml 16:30 Drug: NS 0.9% 1000 ml Route: IV; Rate: 125 ml/hr; Site: left forearm; ca1 19:24 Follow up: Response: No adverse reaction; IV Status: Order to discontinue infusion jl7 Disposition: 12/11 07:26 Co-signature as Attending Physician, Theodore Whyte MD. rn Disposition: 12/11/19 19:14 Discharged to Home. Impression: Generalized abdominal pain, Gas pain. - Condition is Stable. - Discharge Instructions: Abdominal Pain, Adult, Intestinal Gas and Gas Pains, Pediatric, Rehydration, Adult. - Prescriptions for Miralax 17 gram/dose Oral - take 1 packet by ORAL route once daily dilute powder in 8 ounces of water or juice; 1 Pack. - Medication Reconciliation Form, Thank You Letter, Antibiotic Education, Prescription Opioid Use form. - Follow up: Private Physician; When: 2 - 3 days; Reason: Recheck today's complaints, Continuance of care, Re-evaluation by your physician. Follow up: Emergency Department; When: As needed; Reason: Worsening of condition. Signatures: Dispatcher [employer] EDMS Belem Mcnamara, JEREMY-C STORAGE SOLUTIONS ARCHITECT-Csnw Miah Plummer PA PA jmm Nieto, Roman, MD MD rn Leal, Jahala, RN RN jl7 Nicci Rodriguez RN RN ca1 Corrections: (The following items were deleted from the chart) 12/10 19:24 19:14 12/11/2019 19:14 Discharged to Home. Impression: Generalized abdominal pain; Gas jl7 pain. Condition is Stable. Discharge Instructions: Abdominal Pain, Adult, Intestinal Gas and Gas Pains, Pediatric, Rehydration, Adult. Prescriptions for Miralax 17 gram/dose Oral - take 1 packet by ORAL route once daily dilute powder in 8 ounces of water or juice; 1 Pack. and Forms are Medication Reconciliation Form, Thank You Letter, Antibiotic Education, Prescription Opioid Use. Follow up: Private Physician; When: 2 - 3 days; Reason: Recheck today's complaints, Continuance of care, Re-evaluation by your physician. Follow up: Emergency Department; When: As needed; Reason: Worsening of condition. renée
[2019-12-11 19:31] VITALS: TEMP 98.6
[2019-12-11 19:37] VITALS: O2SAT 100
[2019-12-11 19:39] VITALS: BP 135/90
== END 2019-12-11 19:24 | disposition home or self-care (01) ==
LOC: ER 14:53
DX: R14.1 Gas pain (principal); I10 Essential (primary) hypertension; F17.220 Nicotine dependence, chewing tobacco, uncomplicated
CPT/HCPCS: 36415; 74177; 80048; 80076; 83605; 83690; 85025; 87040; 96360; 96361; 99285; J7030; Q9967

== ENCOUNTER 2019-12-16 21:19 | Emergency (ER) | payer SELFPAY ==
--- OUTSIDE RECORDS SUMMARY | 2019-12-16 21:23 | XMS REPORT | Summary of Care ---
:1970 Author Organization [facility] Address [address] [place] [id number] Care Team Providers Name Role Phone Andre Christensen MD Unavailable Pcp, Does Not Have A Primary Care Provider Reason for Referral (Routine) Status Reason Specialty Diagnoses / Referred By Referred To Procedures Contact Contact New Request [facility] Diagnoses Abdominal distention Osmar Schaffer, Fabien Discharge Follow-Up: Specialty Service [facility]ERY; [address] [place] [id number] Reason for Visit Reason Comments REFERRAL Auth/Cert Status Reason Specialty Diagnoses / Referred By Referred To Procedures Contact Contact Emergency Medicine Diagnoses Dilated Transverse Colon Ed-Emergency Dept [address] [place] [phone] Fax: Encounter Details Date Type Department Care Team Description 12/12/2019 Emergency [facility] Departm ent Osmar Schaffer MD Abdominal distention [address] [place] [address] (Primary Dx) [address] [id number] [id number] Allergies No Known Allergiesdocumented as of this encounter (statuses as of 12/12/2019) Medications Medication Sig Dispensed Refills Start Date End Date Status levothyroxine 50 mcg Take 1 tablet 90 tablet 4 09/30/2016 Active tablet by mouth every morning. mineral oil oral Take 30 mL by 420 mL 0 12/12/2019 12/26/19 20 Active liquidIndications: mouth daily for Abdominal distention 14 days. 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 12/04/2016 Abdominal pain 11/22/2016 Dehiscence of closure of fascia, superficial or muscul ar, initial 10/17/2016 encounter Ileus 10/11/2016 Abdominal distention 10/03/2012 Difficult airway for intubation documented as of this encounter (statuses as of 12/12/2019) Resolved Problems Problem Noted Date Resolved Date Volvulus 10/07/2016 10/11/2016 Colon distention 09/27/2016 10/11/2016 Abdominal pain 05/14/2016 10/11/2016 Constipation 09/30/2012 10/14/2016 Volvulus of colon 09/27/2012 10/11/2016 Suicidal ideation 09/27/2012 10/14/2016 documented as of this encounter (statuses as of 12/12/2019) Immunizations Name Administration Dates Next Due Influenza Virus Vaccine Quad IM 3+ YRS 05/16/2016 documented as of this encounter Social History Tobacco Use Types Packs/Day Years Used Date Never Smoker Smokeless Tobacco: Current User Chew Alcohol Use Drinks/Week oz/Week Comments Yes 6 pk every other week Sex Assigned at Date Recorded Not on file Job Start Date Occupation Industry Not on file Not on file Not on file Travel History Travel Start Travel End No recent travel history available. documented as of this encounter Last Filed Vital Signs Vital Sign Reading Time Taken Comments Blood Pressure 114/77 12/12/2019 8:57 PM CDT Pulse 75 12/12/2019 8:57 PM CDT Temperature 36.7 C (98.1 F) 12/12/2019 9:56 PM CDT Respiratory Rate 20 12/12/2019 8:57 PM CDT Oxygen Saturation 97% 12/12/2019 8:57 PM CDT Inhaled Oxygen Concentration - - Weight 68 kg (150 lb) 12/12/2019 8:57 PM CDT Height 185.4 cm (6' 1") 12/12/2019 8:57 PM CDT Body Mass Index 19.79 12/12/2019 8:57 PM CDT documented in this encounter Plan of Treatment Health Maintenance Due Date Last Done Comments DTaP,Tdap,and Td Vaccines ( - 1981 Tdap) INFLUENZA VACCINE (#1) 2019 05/16/2016 PNEUMOCOCCAL 0-64 YEARS COMBINED Aged Out No longer eligible based on SERIES patient's age to complete this topic documented as of this encounter Results Not on filedocumented in this encounter Visit Diagnoses Diagnosis Abdominal distention - Primary Flatulence, eructation, and gas pain documented in this encounter
--- OUTSIDE RECORDS SUMMARY | 2019-12-16 21:23 | XMS REPORT ---
:1970 Author Organization [facility] t Address [address] [place] [address] Care Team Providers Name Role Phone UNKNOWN Primary Care Provider Unavailable MARK ROTHMAN Unavailable Unavailable NITHIN DAVIS Unavailable Unavailable KARMEN Unavailable Unavailable Payers Payer Name Policy Type Policy Number Effective Date Expiration D ate Problems This patient has no known problems. Allergies, Adverse Reactions, Alerts Allergy Allergy Status Severity Reaction(s) Onset Inactive Treating C omments Name Type Date Date Clinician No Known DA Active U 2013-02 Allergies 00:00:0 0 Medications This patient has no known medications. Encounters Start End Encounter Admission Attending Care Care Encounter Date/Time Date/Time Type Type Clinicians Facility Department ID 2017-11-02 2017-11-[address] [facility] MED [id number] 08:33:00 08:33:00 2017-05-05 2017-05-[address] [facility] MED [id number] 08:11:00 08:11:00 2017-04-15 2017-04-[address] [facility] MED [id number] 09:53:00 09:53:00 Results Test Description Test Time Test Comments Text Results Atomic Results Result Comments - RI 2019-12-13 [place]: St: ABD 19:42:00 REG -- PELVIS Name: KIA JOSEPH [facility] : W/O 1970 Age /S: 49/M [address] Unit: [id number] Loc: [place], [place]: [place] [address] Acct: [id number] Dis Date: Status : REG ER PHONE #: [phone] Exam Date: 12/12 FAX #: [phone] Reason: pain EXAMS: CPT COD E: [id number] CT ABD PELVIS W/O CONT 64152 Examination: CT scan abdomen and pelvis without contrast. Location code: H 60. TECHNIQUE: Multiple axial images of the abdomen and pelvis were obtained without intravenous administration o f contrast with sagittal and coronal reconstructions. CT exam was perform ed using automated dose reduction. COMPARISON: 02/28/2013. Discussion: Clinical history is significant for abdominal pain. No radiopaque renal calculi identified. There is no evidence for hydronephrosis. N o radiopaque gallstones are identified. Given the lack o f intravenous contrast and limitations of the study secondary to lack of intra venous contrast the solid organs are grossly unremarkable. No enlarged retr operitoneal, pelvic or inguinal adenopathy is identified. Bladder is diste nded and is grossly unremarkable. Prostatic calcifications are noted. There is significant distention of the transverse colon. This finding was also described on the prior examination and is likely chronic in nature. No definite obstructing lesion is identified. Images through the lung bases are unremarkable. IMPRESSION: 1. Marked distention of the transverse colon essentially unchanged in appearance when compared to the prior study dated 02/28/2013. No definite obstructive lesi on is identified given the stability of this finding is likely as a crust sorter denise finding. 2. Otherwise unremarkable unenhanced CT scan of abdomen and pelvis. at 19 42 Reported and signed by: SHANEL EDWARDS CC: Technologist: SUJATA ALMANZAR Trnscrd Dt/Tm: 12/13/2019 (1941) [id number] Shawn g Print D/T: S: 12/13/2019 (1945 PAGE 1 Signed Report 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 PANEL 2019-12-13 18:49:00 Test Item Value Reference Range Comments SODIUM (test code = NA) 142 mmol/l 134.0-147.0 POTASSIUM (test code = K) 4.0 mmol/L 3.6-5.2 CHLORIDE (test code = CL) 106 mmol/l 98.0-107.0 CARBON DIOXIDE (test code = CO2) 26.6 mmol/l 21.0-33.0 ANION GAP (test code = GAP) 13.4 0-20 GLUCOSE (test code = GLU) 91 mg/dl 70.0-110.0 BLOOD UREA NITROGEN (test code = BUN) 24 mg/dl 7.0-18.0 CREATININE (test code = CREAT) 1.21 mg/dL 0.60-1.30 GFR NON BLACK (test code = GFRNONBLACK) 68 mL/min 95-105 GFR BLACK (test code = GFRBLACK) 82 mL/min 115-127 CALCIUM (test code = CA) 8.6 mg/dl 8.0-10.5 [id number] 18:49:00 Test Item Value Reference Range Comments LIPASE (test code = LIP) 97 Units/L 65.0-230.0 CBC W/AUTO [id number] 18:38:00 Test Item Value Reference Range Comments WHITE BLOOD CELL (test code = WBC) 6.1 K/mm3 4.5-11.0 RED BLOOD CELL (test code = RBC) 3.48 M/mm3 4.40-5.90 HEMOGLOBIN (test code = HGB) 10.1 gm/dL 13.0-17.0 HEMATOCRIT (test code = HCT) 32.2 % 36.0-48.0 MEAN CELL VOLUME (test code = MCV) 92.5 UM3 80.0-94.0 MEAN CELL HGB (test code = MCH) 29.0 UUG 25.5-32.5 MEAN CELL HGB CONCETRATION (test code = MCHC) 31.4 gm/dL 29 .0-35.5 RED CELL DISTRIBUTION WIDTH (test code = RDW) 15.3 % 11 .5-15.0 RED CELL DISTRIBUTION WIDTH SD (test code = 51.8 fL 34.8 -50.2 RDW-SD) PLATELET COUNT (test code = PLT) 152 K/mm3 150-400 MEAN PLATELET VOLUME (test code = MPV) 9.9 fl 7.4-10.4 NEUTROPHIL % (test code = NT%) 57.0 % 49.0-76.0 IMMATURE GRANULOCYTE % (test code = IG%) 0.2 % 0.0-0.4 LYMPHOCYTE % (test code = LY%) 30.6 % 23.0-38.0 MONOCYTE % (test code = MO%) 10.4 % 1.0-10.0 EOSINOPHIL % (test code = EO%) 1.3 % 1.0-5.0 BASOPHIL % (test code = BA%) 0.5 % 0.0-1.0 NEUTROPHIL # (test code = NT#) 3.5 K/mm3 2.4-6.3 IMMATURE GRANULOCYTE # (test code = IG#) 0.01 x10 3/uL 0.00-0. 07 LYMPHOCYTE # (test code = LY#) 1.9 K/mm3 1.2-4.0 MONOCYTE # (test code = MO#) 0.6 K/mm3 0.0-0.6 EOSINOPHIL # (test code = EO#) 0.1 K/MM3 0.0-0.7 BASOPHIL # (test code = BA#) 0.0 K/mm3 0.0-0.2 - XR CHEST 1 [id number] 18:36:00 [place]: St: PRE Name: DORA JOSEPH [facility] : 1970 Age/S: 49/M [address] [facility] [place] Unit#: [id number] [place], [place]: [place] [address] Acct: [id number] Dis Date: Status: PRE ER PHONE #: [phone] Exam Date: 12/13/2019 1822 FAX #: [phone] Reason: SOB EXAMS: CPT CODE: [id number] XR CHEST 1 V 38421 Examination: One view chest x-ray Location code: H60 Comparison: None Discussion: Clinical history is remarkable for shortness of breath and weakness. Heart is normal in size. Lungs are clear of consolidating infiltrates. No effusions identified. There is significant distention of the colon. Impression: 1. Normal one view chest x-ray. 2. Colonic distention. at 1836 Reported and signed by: SHANEL EDWARDS CC: Technologist: AMBER GENTILE Trnscrd Date/Time/By: 12/13/2019 (1835) : By: GarettVR5 PAGE 1 Signed Report [place]: St: PRE----- Name: DORA JOSEPH [facility] : 1970 Age/S: 49/M [address] [facility] Unit #: [id number] Loc: [place], [place]: [place] [address] Acct: [id number] Dis Date: Status: PRE ER PHONE #: [phone] Exam Date: 12/13/2019 1822 FAX #: [phone] Reason: SOB EXAMS: CPT CODE: [id number] XR CHEST 1 V 34297 <Continued> Orig Print D/T: S: 12/13/2019 (1838) PAGE 2 Signed ReportCBC W/PLT COUNT & AUTO [id number] 08:02:00 Test Item Value Reference Range Comments WHITE BLOOD CELL COUNT (BEAKER) (test code = 4.3 K/ L 3.5 -10.5 775) RED BLOOD CELL COUNT (BEAKER) (test code = 761) 3.06 M/ L 4.63-6.08 HEMOGLOBIN (BEAKER) (test code = 410) 8.8 GM/DL 13.7-17.5 HEMATOCRIT (BEAKER) (test code = 411) 28.1 % 40.1-51.0 MEAN CORPUSCULAR VOLUME (BEAKER) (test code = 91.8 fL 79 .0-92.2 753) MEAN CORPUSCULAR HEMOGLOBIN (BEAKER) (test code 28.8 pg 25.7-32.2 = 751) MEAN CORPUSCULAR HEMOGLOBIN CONC (BEAKER) (test 31.3 GM/DL 32.3-36.5 code = 752) RED CELL DISTRIBUTION WIDTH (BEAKER) (test code 13.3 % 11.6-14.4 = 412) PLATELET COUNT (BEAKER) (test code = 756) 357 K/CU MM 150-45 0 MEAN PLATELET VOLUME (BEAKER) (test code = 754) 10.0 fL 9.4-12.4 NUCLEATED RED BLOOD CELLS (BEAKER) (test code = 0 /100 WBC 0-0 413) (CELLAVISION MANUAL DIFF)2019-04-04 08:02:00 Test Item Value [...] Received comment: User comments: Slide comments: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 [id number] 07:34:00 Test Item Value Reference Range Comments [...] NOT APPLICABLE F OR DIALYSIS PATIENT S. [id number] 07:26:00 Test Item Value Reference Range Comments PHOSPHORUS (BEAKER) (test code = 604) 3.1 mg/dL 2.3-4.7 [id number] 07:26:00 Test Item Value Reference Range Comments MAGNESIUM (BEAKER) (test code = 627) 1.6 mg/dL 1.6-2.6 RAD, ABDOMEN/KUB, 1 VIEW [id number] 07:04:00Reason for exam:->ileusFINAL REPORT Abdomen , one [...] MDReport Verified Date/Time: 04/03/2019 07:04:46 Reading Location: [facility] B1 C013X Ortho Consult Reading Room 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 [id number] 06:47:00 Test Item Value Reference Range Comments [...] WBC 0-0 413) URINALYSIS WITH MICROSCOPIC IF [id number] 22:01:00 Test Item Value Reference Range Comments [...] .0 SOURCE(BEAKER) (test code = 2795) URINALYSIS [id number] 22:01:00 Test Item Value Reference Range Comments RBC UA (BEAKER) (test code = 519) 18 /HPF WBC UA (BEAKER) (test code = 520) 1 /HPF CALCIUM OXALATE CRYSTALS (BEAKER) (test code = Occasional 518) [id number] 05:49:00 Test Item Value Reference Range Comments PHOSPHORUS (BEAKER) (test code = 604) 2.5 mg/dL 2.3-4.7 [id number] 05:49:00 Test Item Value Reference Range Comments MAGNESIUM (BEAKER) (test code = 627) 1.7 mg/dL 1.6-2.6 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 [id number] 05:49:00 Test Item Value Reference Range Comments [...] 0 /100 WBC 0-0 413) 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 [id number] 06:19:00 Test Item Value Reference Range Comments [...] NOT APPLICABLE F OR DIALYSIS PATIENT S. [id number] 06:10:00 Test Item Value Reference Range Comments MAGNESIUM (BEAKER) (test code = 1.8 mg/dL 1.6-2.6 Specimen slightly hemolyzed 627) [id number] 06:10:00 Test Item Value Reference Range Comments [...] 0 /100 WBC 0-0 413) 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 [id number] 04:57:00 Test Item Value Reference Range Comments [...] NOT APPLICABLE F OR DIALYSIS PATIENT S. [id number] 04:55:00 Test Item Value Reference Range Comments PHOSPHORUS (BEAKER) (test code = 604) 2.6 mg/dL 2.3-4.7 [id number] 04:55:00 Test Item Value Reference Range Comments MAGNESIUM (BEAKER) (test code = 627) 1.8 mg/dL 1.6-2.6 CT, [id number] 14:16:00FINAL REPORT TECHNIQUE: CT of the abdomen [...] MDReport Verified Date/Time: 03/29/2019 14:16:01 Reading Location: [facility] B1 C013Y CT Body Reading Room RAD, ABDOMEN/KUB, 1 VIEW [id number] 10:23:00Reason for exam:->evaluate ileusFINAL REPORT Technique: Supine [...] MDReport Verified Date/Time: 03/29/2019 10:23:29 Reading Location: [facility] Mammo Reading Room CBC (HEMOGRAM ONLY)2019-03-29 08:10:00 [...] code = 0 /100 WBC 0-0 413) [id number] 06:20:00 Test Item Value Reference Range Comments PHOSPHORUS (BEAKER) (test code = 604) 2.6 mg/dL 2.3-4.7 [id number] 06:20:00 Test Item Value Reference Range Comments MAGNESIUM (BEAKER) (test code = 627) 2.0 mg/dL 1.6-2.6 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 [id number] 06:20:00 Test Item Value Reference Range Comments [...] code = 697) EGFR (BEAKER) (test code 106 mL/min/1.73 sq m ES TIMATED GFR IS NOT = 1092) ACCURATE CREA TININE CLEARANCE IN PRE DICTING GLOMERULAR FILTR ATION RATE. ESTIMATED GFR IS NOT APPLICABLE F OR DIALYSIS PATIENT S. RAD, ABDOMEN SERIES W/ UPRIGHT PA [id number] 22:18:00Reason for exam:- >eval ileusFINAL REPORT CLINICAL [...] Date/Time: 03/28/2019 22:18:50 RAD, ABDOMEN/KUB, 1 VIEW [id number] 11:23:00Reason for exam:->abdominal distensionShould this be performed [...] MDReport Verified Date/Time: 03/28/2019 11:23:34 Reading Location: [facility] Radiology Reading Room Electronically signed by: CANDIDO CRUZ MD on03/28/2019 11:23 AMTISSUE [id number] 09:00:00Surgical Pathology Report Case: [id number] Authorizing Provider: Graciela Garrison MD Collected: 03/25/2019 1133 Ordering Location: [facility] Received: 03/25/2019 1527 SERVICES Pathologist: Jordan [...] FOR MALIGNANCY Signing Pathologist Direct Phone Line: [phone] signed by Jordan Celaya MD on 03/28/2019 at 9:00 [id number] and postop diagnosis: ileostomy statusA. End ileostomy; [...] nodes are not identified in the mesentery. Composite Mechanic sections are submitted. Section code: A, media sales representative section of each end of first mentioned segment of small bowel; A2, media sales representative of first mentioned segment of small bowel mucosa; A3, area of hemorrhagic mesentery of second mentioned segment of mucosa; A4, media sales representative of hemorrhagic mucosa at open end of second portion of small bowel; A5, media sales representative of stapled margin from second [...] 0.2 cm. No gross lesions are identified. Composite Mechanic s ections are submitted. Section code: B1, proximal margin en face and tip; B2, media sales representative cross section. CG/pl Performed.[id number] 06:23:00 Test Item Value Reference Range Comments PHOSPHORUS (BEAKER) (test code = 604) 2.7 mg/dL 2.3-4.7 [id number] 06:23:00 Test Item Value Reference Range Comments MAGNESIUM (BEAKER) (test code = 627) 1.9 mg/dL 1.6-2.6 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 [id number] 06:23:00 Test Item Value Reference Range Comments [...] NOT APPLICABLE F OR DIALYSIS PATIENT S. [id number] 08:20:00 Test Item Value Reference Range Comments PHOSPHORUS (BEAKER) (test code = 604) 2.6 mg/dL 2.3-4.7 [id number] 08:20:00 Test Item Value Reference Range Comments MAGNESIUM (BEAKER) (test code = 627) 1.8 mg/dL 1.6-2.6 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 [id number] 08:20:00 Test Item Value Reference Range Comments [...] NOT APPLICABLE F OR DIALYSIS PATIENT S. [id number] 06:06:00 Test Item Value Reference Range Comments PHOSPHORUS (BEAKER) (test code = 604) 4.1 mg/dL 2.3-4.7 [id number] 06:06:00 Test Item Value Reference Range Comments MAGNESIUM (BEAKER) (test code = 627) 1.8 mg/dL 1.6-2.6 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 [id number] 06:06:00 Test Item Value Reference Range Comments [...] NOT APPLICABLE F OR DIALYSIS PATIENT S. [id number] 06:03:00 Test Item Value Reference Range Comments PHOSPHORUS (BEAKER) (test code = 604) 4.2 mg/dL 2.3-4.7 [id number] 06:03:00 Test Item Value Reference Range Comments MAGNESIUM (BEAKER) (test code = 627) 2.0 mg/dL 1.6-2.6 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 [id number] 06:03:00 Test Item Value Reference Range Comments [...] code = 0 /100 WBC 0-0 413) [id number] 05:52:00 Test Item Value Reference Range Comments PHOSPHORUS (BEAKER) (test code = 604) 4.2 mg/dL 2.3-4.7 [id number] 05:52:00 Test Item Value Reference Range Comments MAGNESIUM (BEAKER) (test code = 627) 1.9 mg/dL 1.6-2.6 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 [id number] 05:52:00 Test Item Value Reference Range Comments [...] NOT APPLICABLE F OR DIALYSIS PATIENT S. [id number] 06:51:00 Test Item Value Reference Range Comments PHOSPHORUS (BEAKER) (test code = 604) 4.3 mg/dL 2.3-4.7 [id number] 06:51:00 Test Item Value Reference Range Comments MAGNESIUM (BEAKER) (test code = 627) 2.0 mg/dL 1.6-2.6 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 [id number] 06:51:00 Test Item Value Reference Range Comments [...] = 0 /100 WBC 0-0 413) TISSUE [id number] 11:50:00Surgical Pathology Report Case: [id number] Authorizing Provider: Juan Alberto Davis MD Collected: 03/18/2019 1827 Ordering Location: [facility] Received: 03/21/2019 0823 SERVICES Pathologist: Jordan Celaya MD Specimen: Small Bowel, NOS A. SMALL BOWEL, ILEOSTOMY PROLAPSE, TAKEDOWN: - ANASTOMOSIS SITE WITH ACTIVE CHRONIC INFLAMMATION AND FOCAL ISCHEMIC CHANGES - MUCOSAL RESECTION MARGINS, NEGATIVE FOR MALIGNANCY - ONE BENIGN LYMPH NODE (0/1) - NEGATIVE FOR DYSPLASIA OR MALIGNANCY Signing Pathologist Direct Phone Line: [phone] signed by Jordan Celaya MD on 03/22/2019 at 11:50 [id number] of ileostomyReceived in a c ontainer labeled [...] 0.5 to 1.2 cm in greatest dimension. Composite Mechanic sections are submitted as follows: A1-A2, mucosal resection margin, en face; A3-A6, media sales representative sections of the possible ostomy stump; A7-A11, serial media sales representative sections from mucosal resection margin to the possible ostomy stump; A12, two lymph nodes. TH/plPerformed.[id number] 06:58:00 Test Item Value Reference Range Comments PHOSPHORUS (BEAKER) (test code = 604) 3.8 mg/dL 2.3-4.7 [id number] 06:58:00 Test Item Value Reference Range Comments MAGNESIUM (BEAKER) (test code = 627) 2.0 mg/dL 1.6-2.6 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 [id number] 06:58:00 Test Item Value Reference Range Comments [...] PATIENT S. CBC W/PLT COUNT & AUTO [id number] 05:42:00 Test Item Value Reference Range Comments [...] 1 % 0-1 (test code = 2801) FL, [id number] 17:42:00Reason for exam:->evaluate for colon stricture as [...] Lopez Verified Date/Time: 03/21/2019 17:42:21 Reading Location: [address] Reading Room [id number] 03:58:00 Test Item Value Reference Range Comments PHOSPHORUS (BEAKER) (test code = 604) 3.0 mg/dL 2.3-4.7 [id number] 03:58:00 Test Item Value Reference Range Comments MAGNESIUM (BEAKER) (test code = 627) 2.0 mg/dL 1.6-2.6 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 [id number] 03:58:00 Test Item Value Reference Range Comments [...] PATIENT S. CBC W/PLT COUNT & AUTO [id number] 03:20:00 Test Item Value Reference Range Comments [...] 0-1 (test code = 2801) 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 [id number] 06:26:00 Test Item Value Reference Range Comments [...] NOT APPLICABLE F OR DIALYSIS PATIENT S. [id number] 06:05:00 Test Item Value Reference Range Comments PHOSPHORUS (BEAKER) (test code = 604) 2.2 mg/dL 2.3-4.7 [id number] 06:05:00 Test Item Value Reference Range Comments MAGNESIUM (BEAKER) (test code = 627) 2.0 mg/dL 1.6-2.6 CBC W/PLT COUNT & AUTO [id number] 05:25:00 Test Item Value Reference Range Comments [...] 0 % 0-1 (test code = 2801) [id number] 04:31:00 Test Item Value Reference Range Comments PHOSPHORUS (BEAKER) (test code = 604) 3.7 mg/dL 2.3-4.7 [id number] 04:31:00 Test Item Value Reference Range Comments MAGNESIUM (BEAKER) (test code = 627) 1.9 mg/dL 1.6-2.6 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 [id number] 04:31:00 Test Item Value Reference Range Comments [...] PATIENT S. CBC W/PLT COUNT & AUTO [id number] 04:15:00 Test Item Value Reference Range Comments [...] 0 % 0-1 (test code = 2801) [id number] 06:41:00 Test Item Value Reference Range Comments PHOSPHORUS (BEAKER) (test code = 604) 3.1 mg/dL 2.3-4.7 [id number] 06:41:00 Test Item Value Reference Range Comments MAGNESIUM (BEAKER) (test code = 627) 1.9 mg/dL 1.6-2.6 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 [id number] 06:41:00 Test Item Value Reference Range Comments [...] PATIENT S. CBC W/PLT COUNT & AUTO [id number] 06:36:00 Test Item Value Reference Range Comments [...] % 0-1 (test code = 2801) CT, [id number] 17:04:00No PO contrastFINAL REPORT ABDOMINAL AND PELVIS [...] MDReport Verified Date/Time: 03/17/2019 17:04:19 Reading Location: [address] Body Reading Room XR ABDOMEN 2 [id number] 09:03:45XR ABDOMEN 2 VIEWSLOCATION: [id number]: Colstomy ProlapseCOMPARISON: Chest radiograph 04/15/2017, CTof the [...] Nonspecific, nonobstructive bowel gas pattern.XR CHEST 1 [id number] 11:32:15 EXAM: CHEST ONE VIEWINDICATION: Chest painCOMPARISON: None availableTECHNIQUE: AP view of the chest.FINDINGS: The cardiomediastinal silhouette is normal. The lungs are clearbilaterally. No pneumothoraxor pleural effusion is identified. Theosseous structures are unremarkable.IMPRESSION: No acute cardiopulmonary process.LOCATION: [id number] Type and [id number] 21:21:00 Test Item Value Reference Range Comments ABO type (test code = ABO) O Rh Type (test code = RH) Positive Comprehensive Metabolic [id number] 20:36:00 Test Item Value Reference Range Comments [...] [place] [employer],http: //nkdep.nih .gov Alcohol/Ethanol, [id number] 20:36:00 Test Item Value Reference Range Comments Alcohol, Ethyl (test code <0.01 g/dL 0.00-0.01 Intoxi cated 0.080 g/dL or = ETOH) more Prothrombin [id number] 20:00:00 Test Item Value Reference Range Comments PT (test code = PT) 10.10 seconds 9.78-13.35 INR (test code = INR) 0.88 Ratio 0.6-1.2 Partial Thromboplastin [id number] 20:00:00 Test Item Value Reference Range Comments aPTT (test code = PTT) 31.50 seconds 24.39-37.25 CBC with [id number] 19:50:00 Test Item Value Reference Range Comments [...] (test code = ALYMPH) 2.2 K/cumm 0.5-4.6 [place] Abs (test code = AMONO) 0.4 K/cumm 0.0-1.2 Eos Abs (test code = AEOS) 0.17 K/cumm 0.00-0.74 Baso Abs (test code = ABASO) 0.0 K/cumm 0.00-0.21 91602& PELVIS W/O [id number] 17:36:28CT ABDOMEN AND PELVIS WITHOUT CONTRAST.CLINICAL HISTORY: [...]
[2019-12-16] MEDS ORDERED: ONDANSETRON 4 MG/2 ML VIAL ONE (22:13)
[2019-12-16] MEDS ORDERED: NA CHLORIDE 0.9% 1,000 ML ONE (22:13)
[2019-12-16 22:16] LABS: Absolute Lymphocytes (CBC) 1.4 K/uL (0.7-4.9); Hematocrit 34.7 % (39.6-49.0); Lymphocytes % 31.9 % (15.3-44.8); MPV 8.7 fL (7.6-11.3); RBC Red Blood Cell Count 3.91 M/uL (4.33-5.43)
[2019-12-16 22:35] LABS: Albumin 3.7 g/dL (3.4-5.0); Bilirubin Direct 0.3 mg/dL (0-0.2); Potassium 3.6 mmol/L (3.5-5.1); Protein, Total 6.4 g/dL (6.4-8.2)
--- NOTE | 2019-12-17 00:20 | ER ---
Nurse's Notes [facility] Name: Rico Mcneill Age: 49 yrs Sex: Male : 1970 Arrival Date: 12/16/2019 Time: 21:22 Bed 6 Private MD: Diagnosis: Diarrhea, unspecified;Nausea and vomiting Presentation: 12/15 21:28 Chief complaint: Patient states: "After I ate I had diarrhea, I threw up once but just vc a little, I also have a dry mouth." EMS states: "The patient was at [facility] and told someone he thought he had the [place] virus so they called 911. Patient is homeless and states that at 0800 he ate some [employer] after that he started feeling nauseous, vomited and had diarrhea. Patient also claims he started feeling weak and not himself.". Coronavirus screen: Proceed with normal triage. Ebola Screen: No symptoms or risks identified at this time. Initial Sepsis Screen: Does the patient meet any 2 criteria? No. Patient's initial sepsis screen is negative. Does the patient have a suspected source of infection? No. Patient's initial sepsis screen is negative. Risk Assessment: Do you want to hurt yourself or someone else? Patient reports no desire to harm self or others. Onset of symptoms was December 16, 2019 at 08:00. Care prior to arrival: Medication(s) given: Normal saline infusion, 200ml administered IV initiated. 18 GA, in the right antecubital area, Glucose check: 200. 21:28 Method Of Arrival: EMS: [facility] vc 21:28 Acuity: OCTAVIO 3 vc Triage Assessment: 21:37 General: Appears in no apparent distress. Behavior is calm, cooperative, appropriate vc for age. Pain: Denies pain. GI: Reports diarrhea, nausea, vomiting, Patient states he vomited one time and had 3 bouts of diarrhea. Historical: - Allergies: 21:35 NKDA; vc - Home Meds: 21:35 None [Active]; vc - PMHx: 21:35 Bipolar disorder; bowel obstruction; Hypertension; Hypothyroidism; vc - PSHx: 21:35 Colostomy reversal; vc - Immunization history:: Adult Immunizations up to date. - Social history:: Smoking status: Patient reports use of chewing tobacco. Screenin:36 Abuse screen: Denies threats or abuse. Nutritional screening: No deficits noted. vc Tuberculosis screening: No symptoms or risk factors identified. Fall Risk None identified. Assessment: 21:37 General: Appears in no apparent distress. uncomfortable, Behavior is calm, cooperative, vc appropriate for age. Pain: Denies pain. Neuro: Level of Consciousness is awake, alert, obeys commands, Oriented to person, place, time. Cardiovascular: Capillary refill < 3 seconds Patient's skin is warm and dry. Respiratory: Airway is patent Respiratory effort is even, unlabored, Respiratory pattern is regular, symmetrical. : No signs and/or symptoms were reported regarding the genitourinary system. EENT: No signs and/or symptoms were reported regarding the EENT system. Derm: Skin is intact, Skin temperature is warm. Musculoskeletal: Circulation, motion, and sensation intact. Range of motion: intact in all extremities. 21:38 GI: Abdomen is distended, noted to have ascites, Bowel sounds present X 4 quads. vc hyperactive in right upper quadrant, left upper quadrant, right lower quadrant and left lower quadrant Abd is non tender. 22:42 Reassessment: Patient appears in no apparent distress at this time. Patient and/or vc family updated on plan of care and expected duration. Pain level reassessed. 23:30 Reassessment: Patient appears in no apparent distress at this time. Patient and/or vc family updated on plan of care and expected duration. Pain level reassessed. Patient states feeling better. Patient states symptoms have improved. 12/16 00:30 Reassessment: Patient appears in no apparent distress at this time. Patient and/or vc family updated on plan of care and expected duration. Pain level reassessed. Patient states feeling better. Patient states symptoms have improved. Vital Signs: 12/15 21:28 BP 114 / 76; Pulse 92; Resp 14; Temp 98.4(TE); Pulse Ox 99% on R/A; Weight 68.04 kg; vc Height 6 ft. 1 in. (185.42 cm); Pain 0/10; 23:30 BP 108 / 92; Pulse 96; Resp 15; Pulse Ox 98.6% ; vc 12/16 00:30 BP 90 / 61; Pulse 82; Resp 15; Pulse Ox 100% on R/A; vc 12/15 21:28 Body Mass Index 19.79 (68.04 kg, 185.42 cm) vc ED Course: 12/15 21:22 Patient arrived in ED. sg 21:27 Alejandra Mack, RN is Primary Nurse. vc 21:34 Triage completed. vc 21:36 [facility] kb 21:36 Demario Soriano MD is Attending Physician. kb 21:38 Arm band placed on right wrist. vc 21:39 Patient has correct armband on for positive identification. Bed in low position. Call vc light in reach. Side rails up X 1. Pulse ox on. NIBP on. 23:03 CT Stone Protocol In Process Unspecified. EDMS 12/16 00:45 No provider procedures requiring assistance completed. IV discontinued, intact, vc bleeding controlled, No redness/swelling at site. Pressure dressing applied. Administered Medications: 12/15 22:13 Drug: NS 0.9% 1000 ml Route: IV; Rate: 1000 ml; Site: right antecubital; vc 12/16 00:46 Follow up: IV Status: Completed infusion; IV Intake: 1000ml vc 12/15 22:13 Drug: Zofran (Ondansetron) 4 mg Route: IVP; Site: right antecubital; vc 22:47 Follow up: Response: No adverse reaction; Nausea is decreased vc Intake: 12/16 00:46 IV: 1000ml; Total: 1000ml. vc Outcome: 00:19 Discharge ordered by . kb 00:45 Discharged to home ambulatory. vc 00:45 Condition: good 00:45 Discharge instructions given to patient, Instructed on discharge instructions, follow up and referral plans. medication usage, Demonstrated understanding of instructions, follow-up care, medications, Prescriptions given X 1. 00:46 Patient left the ED. vc Signatures: Dispatcher [employer] EDMN Lauren Morrell FNP-C FNP-Ckb Gay, Steven RN RN Alejandra Shahid, RN RN vc
--- NOTE | 2019-12-17 00:20 | EDPHYS ---
Physician Documentation [facility] Name: Rico Mcneill Age: 49 yrs Sex: Male : 1970 Arrival Date: 12/16/2019 Time: 21:22 Bed 6 Private MD: ED Physician Demario Soriano HPI: 12/15 23:14 This 49 yrs old Male presents to ER via EMS with complaints of kb Nausea/Vomiting/Diarrhea. 23:14 The patient presents to the emergency department with nausea, vomiting, diarrhea, kb abdominal pain. Onset: The symptoms/episode began/occurred this morning. Possible causes: unknown. The symptoms are aggravated by nothing. The symptoms are alleviated by nothing. Associated signs and symptoms: Pertinent positives: abdominal pain, diarrhea, nausea, vomiting, Pertinent negatives: constipation, fever. Severity of symptoms: At their worst the symptoms were moderate in the emergency department the symptoms are unchanged. The patient has experienced similar episodes in the past, a few times. The patient has not recently seen a physician. Pt reports he ate breakfast this morning and started having diarrhea. Reports nausea and "very little" vomiting. Reports abd "soreness". Historical: - Allergies: 21:35 NKDA; vc - Home Meds: 21:35 None [Active]; vc - PMHx: 21:35 Bipolar disorder; bowel obstruction; Hypertension; Hypothyroidism; vc - PSHx: 21:35 Colostomy reversal; vc - Immunization history:: Adult Immunizations up to date. - Social history:: Smoking status: Patient reports use of chewing tobacco. ROS: 23:12 Constitutional: Negative for fever, chills, and weight loss, Neck: Negative for injury, kb pain, and swelling, Cardiovascular: Negative for chest pain, palpitations, and edema, Respiratory: Negative for shortness of breath, cough, wheezing, and pleuritic chest pain, Back: Negative for injury and pain, MS/Extremity: Negative for injury and deformity, Skin: Negative for injury, rash, and discoloration, Neuro: Negative for headache, weakness, numbness, tingling, and seizure. 23:12 Abdomen/GI: Positive for abdominal pain, nausea, vomiting, and diarrhea, Negative for constipation, abdominal cramps, abdominal distension, anorexia. Exam: 23:12 Constitutional: This is a well developed, well nourished patient who is awake, alert, kb and in no acute distress. Head/Face: Normocephalic, atraumatic. Chest/axilla: Normal chest wall appearance and motion. Nontender with no deformity. No lesions are appreciated. Cardiovascular: Regular rate and rhythm with a normal S1 and S2. No gallops, murmurs, or rubs. Normal PMI, no JVD. No pulse deficits. Respiratory: Lungs have equal breath sounds bilaterally, clear to auscultation and percussion. No rales, rhonchi or wheezes noted. No increased work of breathing, no retractions or nasal flaring. Back: No spinal tenderness. No costovertebral tenderness. Full range of motion. Skin: Warm, dry with normal turgor. Normal color with no rashes, no lesions, and no evidence of cellulitis. MS/ Extremity: Pulses equal, no cyanosis. Neurovascular intact. Full, normal range of motion. Neuro: Awake and alert, GCS 15, oriented to person, place, time, and situation. Cranial nerves II-XII grossly intact. Motor strength 5/5 in all extremities. Sensory grossly intact. Cerebellar exam normal. Normal gait. 23:12 Abdomen/GI: Inspection: scar(s), are noted in the umbilical area and right lower quadrant, Bowel sounds: normal, in all quadrants, Palpation: soft, in all quadrants, mild abdominal tenderness, in all quadrants. Vital Signs: 21:28 BP 114 / 76; Pulse 92; Resp 14; Temp 98.4(TE); Pulse Ox 99% on R/A; Weight 68.04 kg; vc Height 6 ft. 1 in. (185.42 cm); Pain 0/10; 23:30 BP 108 / 92; Pulse 96; Resp 15; Pulse Ox 98.6% ; vc 12/16 00:30 BP 90 / 61; Pulse 82; Resp 15; Pulse Ox 100% on R/A; vc 12/15 21:28 Body Mass Index 19.79 (68.04 kg, 185.42 cm) vc MDM: 12/15 21:37 Patient medically screened. kb 23:13 Data reviewed: vital signs, nurses notes. Data interpreted: Pulse oximetry: on room air kb is 99 %. Interpretation: normal. 12/16 00:19 Counseling: I had a detailed discussion with the patient and/or guardian regarding: the kb historical points, exam findings, and any diagnostic results supporting the discharge/admit diagnosis, lab results, radiology results, the need for outpatient follow up, a family practitioner, to return to the emergency department if symptoms worsen or persist or if there are any questions or concerns that arise at home. 12/15 21:37 Order name: Basic Metabolic Panel; Complete Time: 22:36 kb 12/15 21:37 Order name: CBC with Diff; Complete Time: 22:27 kb 12/15 21:37 Order name: Hepatic Function; Complete Time: 22:36 kb 12/15 21:37 Order name: Lipase; Complete Time: 22:36 kb 12/15 22:37 Order name: CT Stone Protocol kb 12/15 21:37 Order name: IV Saline Lock; Complete Time: 22:13 kb 12/15 21:37 Order name: Labs collected and sent; Complete Time: 22:13 kb Administered Medications: 12/15 22:13 Drug: NS 0.9% 1000 ml Route: IV; Rate: 1000 ml; Site: right antecubital; vc 12/16 00:46 Follow up: IV Status: Completed infusion; IV Intake: 1000ml vc 12/15 22:13 Drug: Zofran (Ondansetron) 4 mg Route: IVP; Site: right antecubital; vc 22:47 Follow up: Response: No adverse reaction; Nausea is decreased vc Disposition: 12/16 06:34 Co-signature as Attending Physician, Demario Soriano MD I agree with the assessment and kdr plan of care. Disposition: 12/17/19 00:19 Discharged to Home. Impression: Diarrhea, unspecified, Nausea and vomiting. - Condition is Stable. - Discharge Instructions: Food Choices to Help Relieve Diarrhea, Adult, Viral Gastroenteritis, Adult, [id number]. - Prescriptions for Zofran 4 mg Oral Tablet - take 1 tablet by ORAL route every 6 hours As needed; 20 tablet. - Medication Reconciliation Form, Thank You Letter, Antibiotic Education, Prescription Opioid Use form. - Follow up: Emergency Department; When: As needed; Reason: Worsening of condition. Follow up: Private Physician; When: 2 - 3 days; Reason: Recheck today's complaints, Continuance of care, Re-evaluation by your physician. Signatures: Dispatcher [employer] Lauren Juarez FNP-C FNP-Ckb Rittger, Demario, MD MD kdr Alejandra Mack RN RN vc Corrections: (The following items were deleted from the chart) 00:46 00:19 12/17/2019 00:19 Discharged to Home. Impression: Diarrhea, unspecified; Nausea vc and vomiting. Condition is Stable. Forms are Medication Reconciliation Form, Thank You Letter, Antibiotic Education, Prescription Opioid Use. Follow up: Emergency Department; When: As needed; Reason: Worsening of condition. Follow up: Private Physician; When: 2 - 3 days; Reason: Recheck today's complaints, Continuance of care, Re-evaluation by your physician. kb
[2019-12-17 00:54] VITALS: TEMP 98.4
[2019-12-17 00:57] VITALS: BP 90/61; O2SAT 100
--- NOTE | 2019-12-17 18:28 | RAD REPORT ---
EXAM DESCRIPTION: CT - Stone Protocol - 12/17/2019 1:53 am CLINICAL HISTORY: The patient is 49 years old and is Male; ABD PAIN TECHNIQUE: Axial computed tomography images of the abdomen and pelvis without intravenous contrast. Sagittal and coronal reformatted images were created and reviewed. This CT exam was performed usi ng one or more of the following dose reduction techniques: automated exposure control, adjustment o f the mA and/or kV according to patient size, and/or use of iterative reconstruction technique. CONTRAST: CT of the abdomen and pelvis December 11, 2019 COMPARISON: No relevant prior studies available. FINDINGS: LUNG BASES: Unremarkable. No mass. No consolidation. ABDOMEN: LIVER: Homogeneous without focal mass. GALLBLADDER AND BILE DUCTS: The gallbladder is not well distended. PANCREAS: Unremarkable. No ductal dilation. SPLEEN: Unremarkable. ADRENALS: Unremarkable. No mass. KIDNEYS AND URETERS: No obstructing stones. No hydronephrosis. No perinephric fluid. STOMACH AND BOWEL: The stomach is moderately distended with food contents. The small bowel is rel atively normal in caliber. Redemonstration of significant gaseous dilatation of the transverse colon is noted. The transverse colon measures approximately 12.7 cm in greatest AP dimension. Postsurgical change of the left colon with associated anastomosis is present. Stool is present throughout majority the colon. There is no mucosal thickening. PELVIS: APPENDIX: The appendix is normal in caliber without surrounding inflammation. BLADDER: The bladder is moderately distended. No stones. REPRODUCTIVE: Unremarkable as visualized. ABDOMEN and PELVIS: INTRAPERITONEAL SPACE: Unremarkable. No free air. No significant fluid collection. BONES/JOINTS: No acute fracture. SOFT TISSUES: The soft tissues are normal. VASCULATURE: Atherosclerosis of the vasculature is present. No abdominal aortic aneurysm. LYMPH NODES: Unremarkable. No enlarged lymph nodes. IMPRESSION: 1. Slight interval increase in the chronic transverse colon dilatation. There is no bowel obstruction . 2. Chronic findings as detailed above. Electronically signed by: Maya Fairchild MD 12/17/2019 12:09 AM CDT Due to temporary technical issues with the PACS/Fluency reporting system, reports are being signed by the in house radiologist as a courtesy to ensure prompt reporting. The interpreting radiologist is f ully responsible for the content of the report.
== END 2019-12-17 00:46 | disposition home or self-care (01) ==
LOC: ER 21:19
DX: R19.7 Diarrhea, unspecified (principal); I10 Essential (primary) hypertension; F17.220 Nicotine dependence, chewing tobacco, uncomplicated
CPT/HCPCS: 36415; 74176; 76377; 80048; 80076; 83690; 85025; 96361; 96374; 99284; J2405; J7030

== ENCOUNTER 2022-04-14 18:53 | Inpatient (IN) | payer SELFPAY ==
--- OUTSIDE RECORDS SUMMARY | 2022-04-14 19:42 | XMS REPORT | Continuity of Care Document ---
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 vitamin 2021-0 Yes 1000ug Take 1 [facility] s B-12 1,000 1-13 tablet by ity of mcg tablet 00:00: mouth [place] 00 daily. Medical Branch vitamin 2021-0 Yes 1000ug Take 1 [facility] s B-12 1,000 1-13 tablet by ity of mcg tablet 00:00: mouth [place] 00 daily. Medical Branch vitamin 2021-0 Yes 1000ug Take 1 Un[facility] s B-12 1,000 1-13 tablet by ity of mcg tablet 00:00: mouth [place] 00 daily. Medical Branch vitamin 2021-0 Yes 1000ug Take 1 [facility] s B-12 1,000 1-13 tablet by ity of mcg tablet 00:00: mouth [place] 00 daily. Medical Branch vitamin 2021-0 Yes 1000ug Take 1 [facility] s B-12 1,000 1-13 tablet by ity of mcg tablet 00:00: mouth [place] 00 daily. Medical Branch vitamin 2-0 Yes 1000ug Take 1 [facility] s B-12 1,000 1-13 tablet by ity of mcg tablet 00:00: mouth [place] 00 daily. Medical Branch vitamin 2021-0 Yes 1000ug Take 1 [facility] s B-12 1,000 1-13 tablet by ity of mcg tablet 00:00: mouth [place] 00 daily. Medical Branch vitamin 2021-0 Yes 1000ug Take 1 [facility] s B-12 1,000 1-13 tablet by ity of mcg tablet 00:00: mouth [place] 00 daily. Medical Branch vitamin 2021-0 Yes 1000ug Take 1 [facility] s B-12 1,000 1-13 tablet by ity of mcg tablet 00:00: mouth [place] 00 daily. Medical Branch vitamin 2021-0 2022- No 1000ug Take 1 Un[facility] rs B-12 1,000 1-13 08-10 tablet by ity of mcg tablet 00:00: 00:00 mouth [place] 00 :00 daily. Medical Branch acetaminoph 2021-0 Yes 650mg Take 2 Uni vers en 325 mg 1-12 tablets by ity of tablet 00:00: mouth [place] 00 every 6 Medical (six) Branch hours as needed for Pain (scale 1-3). ibuprofen 2021-0 Yes 600mg Take 1 [facility] rs 600 mg 1-12 tablet by ity of tablet 00:00: mouth 3 (three) Medical times Branch daily with meals. loperamide 2021-0 Yes [id number] 2mg Take 1 [facility] 2 mg 1-12 capsule by ity of capsule 00:00: mouth 2 (two) Medical times Branch daily. psyllium 2021-0 Yes 1{packe Take 1 [facility] ers 3.4 gram 1-12 t} Packet by ity of packet 00:00: mouth 2 00 (two) Medical times Branch daily. acetaminoph 2021-0 Yes 650mg Take 2 [facility] vers en 325 mg 1-12 tablets by ity of tablet 00:00: mouth [place] 00 every 6 Medical (six) Branch hours as needed for Pain (scale 1-3). ibuprofen 2022-0 Yes 600mg Take 1 [facility] rs 600 mg 1-12 tablet by ity of tablet 00:00: mouth (three) Medical times Branch daily with meals. loperamide 2022-0 Yes [id number] 2mg Take 1 [facility] 2 mg 1-12 capsule by ity of capsule 00:00: mouth (two) Medical times Branch daily. psyllium 2022-0 Yes 1{packe Take 1 Univ ers 3.4 gram 1-12 t} Packet by ity of packet 00:00: mouth (two) Medical times Branch daily. acetaminoph 2022-0 Yes 650mg Take 2 [facility] vers en 325 mg 1-12 tablets by ity of tablet 00:00: mouth every 6 Medical (six) Branch hours as needed for Pain (scale 1-3). ibuprofen 2022-0 Yes 600mg Take 1 [facility] rs 600 mg 1-12 tablet by ity of tablet 00:00: mouth (three) Medical times Branch daily with meals. loperamide 2022-0 Yes [id number] 2mg Take 1 [facility] 2 mg 1-12 capsule by ity of capsule 00:00: mouth (two) Medical times Branch daily. psyllium 2022-0 Yes 1{packe Take 1 [facility] ers 3.4 gram 1-12 t} Packet by ity of packet 00:00: mouth (two) Medical times Branch daily. acetaminoph 2022-0 Yes 650mg Take 2 [facility] vers en 325 mg 1-12 tablets by ity of tablet 00:00: mouth every 6 Medical (six) Branch hours as needed for Pain (scale 1-3). ibuprofen 2022-0 Yes 600mg Take 1 [facility] rs 600 mg 1-12 tablet by ity of tablet 00:00: mouth (three) Medical times Branch daily with meals. loperamide 2022-0 Yes [id number] 2mg Take 1 [facility] 2 mg 1-12 capsule by ity of capsule 00:00: mouth (two) Medical times Branch daily. psyllium 2022-0 Yes 1{packe Take 1 [facility] ers 3.4 gram 1-12 t} Packet by ity of packet 00:00: mouth (two) Medical times Branch daily. acetaminoph 2022-0 Yes 650mg Take 2 [facility] vers en 325 mg 1-12 tablets by ity of tablet 00:00: mouth every 6 Medical (six) Branch hours as needed for Pain (scale 1-3). ibuprofen 2022-0 Yes 600mg Take 1 [facility] rs 600 mg 1-12 tablet by ity of tablet 00:00: mouth (three) Medical times Branch daily with meals. loperamide 2022-0 Yes [id number] 2mg Take 1 [facility] 2 mg 1-12 capsule by ity of capsule 00:00: mouth (two) Medical times Branch daily. psyllium 2022-0 Yes 1{packe Take 1 [facility] ers 3.4 gram 1-12 t} Packet by ity of packet 00:00: mouth (two) Medical times Branch daily. acetaminoph 2022-0 Yes 650mg Take 2 [facility] vers en 325 mg 1-12 tablets by ity of tablet 00:00: mouth every 6 Medical (six) Branch hours as needed for Pain (scale 1-3). ibuprofen 2022-0 Yes 600mg Take 1 [facility] rs 600 mg 1-12 tablet by ity of tablet 00:00: mouth (three) Medical times Branch daily with meals. loperamide 2022-0 Yes [id number] 2mg Take 1 [facility] 2 mg 1-12 capsule by ity of capsule 00:00: mouth (two) Medical times Branch daily. psyllium 2022-0 Yes 1{packe Take 1 [facility] ers 3.4 gram 1-12 t} Packet by ity of packet 00:00: mouth (two) Medical times Branch daily. acetaminoph 2022-0 Yes 650mg Take 2 [facility] vers en 325 mg 1-12 tablets by ity of tablet 00:00: mouth every 6 Medical (six) Branch hours as needed for Pain (scale 1-3). ibuprofen 2022-0 Yes 600mg Take 1 [facility] rs 600 mg 1-12 tablet by ity of tablet 00:00: mouth (three) Medical times Branch daily with meals. loperamide 2022-0 Yes [id number] 2mg Take 1 [facility] 2 mg 1-12 capsule by ity of capsule 00:00: mouth (two) Medical times Branch daily. psyllium 2022-0 Yes 1{packe Take 1 [facility] ers 3.4 gram 1-12 t} Packet by ity of packet 00:00: mouth (two) Medical times Branch daily. acetaminoph 2022-0 Yes 650mg Take 2 [facility] vers en 325 mg 1-12 tablets by ity of tablet 00:00: mouth every 6 Medical (six) Branch hours as needed for Pain (scale 1-3). ibuprofen 2022-0 Yes 600mg Take 1 [facility] rs 600 mg 1-12 tablet by ity of tablet 00:00: mouth (three) Medical times Branch daily with meals. loperamide 2022-0 Yes [id number] 2mg Take 1 [facility] 2 mg 1-12 capsule by ity of capsule 00:00: mouth (two) Medical times Branch daily. psyllium 2022-0 Yes 1{packe Take 1 Univ ers 3.4 gram 1-12 t} Packet by ity of packet 00:00: mouth (two) Medical times Branch daily. acetaminoph 2022-0 Yes 650mg Take 2 [facility] vers en 325 mg 1-12 tablets by ity of tablet 00:00: mouth every 6 Medical (six) Branch hours as needed for Pain (scale 1-3). ibuprofen 2022-0 Yes 600mg Take 1 [facility] rs 600 mg 1-12 tablet by ity of tablet 00:00: mouth (three) Medical times Branch daily with meals. loperamide 2022-0 Yes [id number] 2mg Take 1 [facility] 2 mg 1-12 capsule by ity of capsule 00:00: mouth (two) Medical times Branch daily. psyllium 2022-0 Yes 1{packe Take 1 Univ ers 3.4 gram 1-12 t} Packet by ity of packet 00:00: mouth (two) Medical times Branch daily. acetaminoph 2022-0 2022- No 650mg Take 2 Un piyush en 325 mg 1-12 08-10 tablets by ity of tablet 00:00: 00:00 mouth [place] 00 :00 every 6 Medical (six) Branch hours as needed for Pain (scale 1-3). ibuprofen 2022-0 2022- No 600mg Take 1 [facility] ers 600 mg 09-04 tablet by ity of tablet 00:00: 00:00 mouth 3 [place] 00 :00 (three) Medical times Branch daily with meals. loperamide 2021- No [id number] 2mg Take 1 [facility] 2 mg 09-04 capsule by ity of capsule 00:00: 00:00 mouth 2 [place] 00 :00 (two) Medical times Branch daily. psyllium 2021- No 1{packe Take 1 Uni vers 3.4 gram 09-04 t} Packet by ity o f packet 00:00: 00:00 mouth 2 [place] 00 :00 (two) Medical times Branch daily. vitamin 2021-0 Yes 1000ug 1,000 mcg, Un piyush B-12 09-03 Oral, ity of (CYANOCOBAL 20:00: DAILY, [place] 00 First dose Medical tablet on [facility] 1,000 mcg 09/03/21 at 1400, Until Discontinu ed, Routine vitamin 2021-0 Yes 1000ug 1,000 mcg, Un piyush -12 09-03 Oral, ity of (CYANOCOBAL 20:00: DAILY, [place] 00 First dose Medical tablet on [facility] 1,000 mcg 09/03/21 at 1400, Until Discontinu ed, Routine ibuprofen 2021- No 600mg 600 mg, Uni vers (IBU) 09-03 Oral, TID ity of tablet 600 18:00: 17:59 MEALS, 15 [place] mg 00 :00 doses, Medical First dose Branch on Thu09/03/21 at 1200, Last dose on 09/08/21 at 0800, Routine ibuprofen 2021- No 600mg 600 mg, Uni vers (IBU) 09-03 Oral, TID ity of tablet 600 18:00: 17:59 MEALS, 15 [place] mg 00 :00 doses, Medical First dose Branch on Thu09/03/21 at 1200, Last dose on 09/08/21 at 0800, Routine traMADoL Yes 50mg 50 mg, Univers (ULTRAM) 09-03 Oral, ity of tablet 50 14:28: Q6HPRN, [place] mg 55 Starting Medical on Thu Branch 09/03/21 at 0828, Until Discontinu ed, Routine, Pain (scale 4-6) traMADoL Yes 50mg 50 mg, Univers (ULTRAM) 09-03 Oral, ity of tablet 50 14:28: Q6HPRN, [place] mg 55 Starting Medical on Thu Branch 09/03/21 at 0828, Until Discontinu ed, Routine, Pain (scale 4-6) lidocaine-e 2021- No PRN, Unive rs pinephrine 09-03 Starting ity of (XYLOCAINE 14:15: 15:38 on Thu [place] WITH 00 :29 09/03/21 at Medical EPINEPHRINE 0815, Branch ) 1 Until Thu %-1:100,000 09/03/21 at injection 0938, Routine, Intra-op D5W 0.45% 2021- No IV [facility] NaCl 09-03 Infusion, ity of (1/2NS) 1 L 09:45: 14:26 at 110 [place] + KCL 20 00 :39 mL/hr, Medical mEq CONTINUOUS Branch , Starting on Thu09/03/21 at 0345, Until Thu09/03/21 at 0826, Routine sulfur 2021- No [id number] 5mL 5 mL, Unive rs hexafluorid 09-02 Intravenou i ty of e microsphr 21:30: 21:30 s, ONCE, 1 [place] (LUMASON) 00 :00 dose, On Medica l injection 5 Mon Branch mL 09/02/21 at 1530, Routine
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 : CAMILA GREGORY NaCl 0.9% 2021- No 500mL at 999 Univ ers (NS) bolus 09-01- mL/hr, 500 it y of infusion 23:15: 22:18 mL, IV [place] 500 mL 00 :00 Piggyback, Medical ONCE, 1 Branch dose, On 09/01/21 at 1715, JOÃO NaCl 0.9% 2021- No 1000mL at 75 Univ ers (NS) IV 09-01- mL/hr, IV ity of infusion 14:00: 16:07 Infusion, [place] 1,000 mL 00 :36 CONTINUOUS Medic al , Starting Branch on 09/01/21 at 0800, Until [place] 09/01/21 at 1007, Routine NaCl 0.9% 2022-0 2022- No 1000mL at 999 Uni vers (NS) bolus 1-08 01-08 mL/hr, ity of infusion 15:15: 15:11 1,000 mL, [place] 1,000 mL 00 :00 IV Medical Infusion, [place] ONCE, 1 dose, [facility] at 0915, STAT pantoprazol 202-0 Yes 40mg 40 mg, Univ ers e 1-08 Oral, ity of (PROTONIX) 15:00: DAILY, [place] EC tablet 00 First dose Medi mariusz 40 [facility] on [facility] Branch 08/31/21 at 0900, Until Discontinu ed, Routine pantoprazol 2021-0 Yes 40mg 40 mg, Univ ers e 1-08 Oral, ity of (PROTONIX) 15:00: DAILY, [place] EC tablet 00 First dose Medi mariusz 40 mg on [facility] Branch 08/31/21 at 0900, Until Discontinu ed, Routine loperamide 2021-0 Yes 2mg 2 mg, Univer s (IMODIUM 1-08 Oral, BID, ity o f A-D) 14:00: First dose [place] capsule 2 00 on [facility] Medical mg 08/31/21 at Branch 0800, Until Discontinu ed, Routine psyllium 2021-0 Yes 1{packe 1 Packet, U nivers (METAMUCIL 1-08 t} Oral, BID, ity of FIBER 14:00: First dose [place] SINGLES) 00 on [facility] Medical 3.4 gram 08/31/21 at Branch packet 1 0800, Packet Until Discontinu ed, Routine heparin 2022-0 Yes 5000U 5,000 Univers (porcine) 1-08 Units, ity of injection 14:00: [place]cut[place]o [place] 5,000 Units 00 us, Q12H, Med ical First dose Branch on 08/31/21 at 0800, Until Discontinu ed, Routine loperamide 2022-0 Yes 2mg 2 mg, Univer s (IMODIUM 1-08 Oral, BID, ity o f A-D) 14:00: First dose [place] capsule 2 00 on Sat Medical mg 08/31/21 at Branch 0800, Until Discontinu ed, Routine psyllium 2021-0 Yes 1{packe 1 Packet, U nivers (METAMUCIL -08 t} Oral, BID, ity of FIBER 14:00: First dose [place] SINGLES) 00 on Sat Medical 3.4 gram 08/31/21 at Branch packet 1 0800, Packet Until Discontinu ed, Routine heparin 2021-0 Yes 5000U 5,000 [facility] (porcine) 1-08 Units, ity of injection 14:00: [place]cut[place] 5,000 Units 00 us, Q12H, Med ical First dose Branch on 08/31/21 at 0800, Until Discontinu ed, Routine NaCl 0.9% 2021-0 2021- No at 125 Unive rs (NS) IV 08-31 01-08 mL/hr, IV ity of infusion 07:15: 08:03 Infusion, [place] 00 :43 CONTINUOUS Medical , Starting Branch on 08/31/21 at 0115, Until 08/31/21 at 0203, Routine acetaminoph 2021-0 Yes 650mg 650 mg, Un piyush en 1-08 Oral, ity of (TYLENOL) 06:03: Q6HPRN, [place] tablet 650 36 Starting Medic al mg on Sat Branch 08/31/21 at 0003, Until Discontinu ed, Routine, Pain (scale 1-3) acetaminoph 2021-0 Yes 650mg 650 mg, Un piyush en 1-08 Oral, ity of (TYLENOL) 06:03: Q6HPRN, [place] tablet 650 36 Starting Medic al mg on Sat Branch 08/31/21 at 0003, Until Discontinu ed, Routine, Pain (scale 1-3) NaCl 0.9% 0 2021- No 1000mL at 999 Uni vers (NS) bolus 08-31 01-08 mL/hr, ity of infusion 01:45: 02:43 1,000 mL, [place] 1,000 mL 00 :00 IV Medical Infusion, Branch ONCE, 1 dose, On Thu08/30/21 at 1945, STAT albuterol 2021-0 202- No 8{puff} 8 Puff, U nivers (VENTOLIN) 08-30 01-07 Inhalation it y of inhaler 8 01:00: 00:20 , ONCE, 1 [place] Puff 00 :00 dose, On Medical [place] 08/29/21 Branch at 1900, JOÃO acetaminoph No 1000mg 1,000 mg, Univers en 08-30 Oral, ity of (TYLENOL) 00:30: 00:20 ONCE, 1 [place] tablet 00 :00 dose, On Medical 1,000 mg [place] 08/29/21 Branc h at 1830, Routine lidocaine No 10mL 10 mL, Unive rs 2% viscous 08-30 Oral, ity of (LIDOCAINE 00:30: 00:20 ONCE, 1 [place] VISCOUS) 2 00 :00 dose, On Medic al % solution [place] 08/29/21 Bra nch 10 mL at 1830, JOÃO benzonatate 2021- No 100mg 100 mg, U nivers (TESSALON 08-30 Oral, ity of PERLES) 00:30: 00:22 ONCE, 1 [place] capsule 100 00 :00 dose, On Medi mariusz mg [place] 08/29/21 Branch at 1830, Routine No known No Univers medications 06 ity of 19:35: [address] Branch NaCl 0.9% 2020-08 Yes 10mL 10 mL, Univer s (NS) 2-12 Slow IV ity of injection 19:13: Push, PRN, [place] 10 mL 37 Starting Medical on [place] Branch 08/04/21 at 1313, Until Discontinu ed, Routine, line maintenanc e lidocaine 2020-08 Yes 5mL 5 mL, Univers 1% (PF) 212 Subcutaneo ity of (XYLOCAINE) 19:13: us, PRN, [place] injection 5 37 Starting Medi mariusz mL on [place] Branch 08/04/21 at 1313, Until Discontinu ed, Routine, Local anesthesia dextrose 5% 2020-08 Yes IV Univer s and 0.45% 2-12 Infusion, ity o f NaCl with 16:00: CONTINUOUS [place] KCl 40 mEq 00 , Starting Med ical 1,000 mL IV on [place] Branch Solution 08/04/21 at 1000, Until Discontinu ed, 1,000 mL, at 125 mL/hr NaCl 0.9% 2020-08- No 1000mL at 999 Uni vers (NS) bolus 2-12 12-12 mL/hr, ity of infusion 15:53: 17:17 1,000 mL, [place] 1,000 mL 00 :00 IV Medical Piggyback, Branch ONCE, 1 dose, On Thu08/04/21 at 1000, JOÃO D5W 0.45% 2020-08- No IV Univers NaCl + KCL 2-10 12-12 Infusion, ity of 20 mEq RTU 15:00: 15:56 CONTINUOUS [place] 20 mEq/L 00 :45 , Starting Medic al 1,000 mL IV on Thu Branch Solution 08/02/21 at 0900, Until Thu08/04/21 at 0956, 1,000 mL, at 100 mL/hr diphenoxyla 2020-08 Yes 2{tbl} 2 tablet, Univers te-atropine 2-10 Oral, TID, it y of (LOMOTIL) 14:00: First dose [place] 2.5-0.025 00 (after Medical mg tablet 2 last Branch tablet modificati on) on Thu08/02/21 at 0800, Until Discontinu ed, Routine pantoprazol 2020-08 Yes 40mg 40 mg, Univ ers e 2-10 Slow IV ity of (PROTONIX) 14:00: Push, [place] injection 00 Q12H, Medical 40 mg First dose Branch on Thu08/02/21 at 0800, Until Discontinu ed psyllium 2020-08 Yes 2{packe 2 Packet, U nivers (METAMUCIL 2-09 t} Oral, TID, ity of FIBER 14:00: First dose [place] SINGLES) 00 (after Medical 3.4 gram last Branch packet 2 modificati Packet on) on Thu08/01/21 at 0800, Until Discontinu ed, Routine diphenoxyla 2020-08- No 1{tbl} 1 tablet, Univers te-atropine 2-09 12-10 Oral, TID, i ty of (LOMOTIL) 14:00: 13:40 First dose [place] 2.5-0.025 00 :20 (after Medical mg tablet 1 last Branch tablet modificati on) on Thu08/01/21 at 0800, Until Discontinu ed, Routine loperamide 2020-08 Yes 4mg 4 mg, Univer s (IMODIUM 10-02 Oral, Q6H, ity o f A-D) 13:30: First dose [place] capsule 4 00 (after Medical mg last Branch modificati on) on [place] 08/01/21 at 0730, Until Discontinu ed, Routine magnesium 2020-08 No 2g 2 g, IV Univ ers sulfate in 10-02 Piggyback, it y of water 2 13:00: 14:28 ONCE, 1 [place] gram/50 mL 00 :00 dose, On Medic al (4 %) [facility] Branch infusion 2 08/01/21 at g 0700, Routine diphenoxyla 2020-08 No 1{tbl} 1 tablet, Univers te-atropine 10-01 Oral, BID, i ty of (LOMOTIL) 15:30: 13:19 First dose [place] 2.5-0.025 00 :28 on Thu Medical mg tablet 1 07/31/21 at Br anch tablet 0930, Until Discontinu ed, Routine iopamidol 2020-08 No [id number] 100mL 100 mL, Univers (ISOVUE 10-01 Intravenou ity o f 370-500 mL) 05:14: 05:14 s, ONCE, 1 [place] injection 00 :00 dose, On Medica l 100 mL [facility] 07/30/21 at 2315, Routine morpHINE 2020-08 No 2mg 2 mg, Slow Un piyush injection 2 09-30 IV Push, ity of mg 17:00: 17:10 ONCE, 1 [place] 00 :00 dose, On Medical [facility] 07/30/21 at 1115, Routine enoxaparin 2020-08 Yes 40mg 40 mg, Unive rs (LOVENOX) 09-30 Subcutaneo ity of injection 15:00: us, DAILY, [place] 40 mg 00 First dose Medical (after Branch last modificati on) on Thu07/30/21 at 0900, Until Discontinu ed, Routine pantoprazol 2020-08 No 40mg 40 mg, Uni vers e 09-30 12-10 Oral, ity of (PROTONIX) 15:00: 13:40 DAILY, [place] EC tablet 00 :20 First dose Medi mariusz 40 mg on Tu Branch 07/30/21 at 0900, Until Discontinu ed, Routine loperamide 2020-08 No 4mg 4 mg, Unive rs (IMODIUM 09-30 Oral, TID, ity of A-D) 14:00: 13:19 First dose [place] capsule 4 00 :28 on [facility] Medical mg 07/30/21 at Branch 0800, Until Discontinu ed, Routine psyllium 2020-08- No 1{packe 1 Packet, Univers (METAMUCIL 09-30 t} Oral, TID, it y of FIBER 14:00: 13:19 First dose [place] SINGLES) 00 :28 on [facility] Medical 3.4 gram 07/30/21 at [facility] h packet 1 0800, Packet Until Discontinu ed, Routine lactated 2020-08 No 1000mL at 75 Unive rs ringers IV 2 12-10 mL/hr, ity of infusion 07:30: 13:59 1,000 mL, [place] 1,000 mL 00 :30 IV Medical Infusion, Branch CONTINUOUS , Starting on Thu07/30/21 at 0130, Until Thu08/02/21 at 0759, Routine NaCl 0.9% 2020-08 No 1000mL at 999 Uni vers (NS) bolus 2-07 12-07 mL/hr, ity of infusion 07:15: 07:17 1,000 mL, [place] 1,000 mL 00 :00 IV Medical Infusion, Branch ONCE, 1 dose, On Thu07/30/21 at 0115, STAT ondansetron 2020-08 Yes 4mg 4 mg, Slow Univers (ZOFRAN 2-07 IV Push, ity of (PF)) 06:10: Administer [place] injection 4 46 over 15 Medic al mg Minutes, Branch Q6HPRN, Starting on Thu07/30/21 at 0010, Until Discontinu ed, Routine, Nausea and Vomiting (N/V) NaCl 0.9% 2020-08 Yes 1000mL at 999 Univ ers (NS) bolus 2-07 mL/hr, ity of infusion 06:10: 1,000 mL, [place] 1,000 mL 43 IV Medical Piggyback, Branch PRN, Starting on Thu07/30/21 at 0010, Until Discontinu ed, Routine acetaminoph 2020-08 Yes 650mg 650 mg, Un piyush en 2-07 Oral, ity of (TYLENOL) 06:10: Q6HPRN, [place] tablet 650 40 Starting Medic al mg on Thu Branch 07/30/21 at 0010, Until Discontinu ed, Routine, Pain (scale 1-3) morpHINE 2020-08- No 4mg 4 mg, Slow Un piyush injection 4 2-07 12- IV Push, ity of mg 03:30: 02:55 ONCE, 1 [place] 00 :00 dose, On [facility] Branch 07/29/21 at 2130, STAT psyllium 2020-08 Yes [id number] 1{packe Take 1 Univers 3.4 gram 2-03 t} Packet by ity of packet 00:00: mouth 3 00 (three) Medical times Branch daily. loperamide 2020-08 Yes [id number] 4mg Take 2 [facility] 2 mg 2-03 capsules ity of capsule 00:00: by mouth 3 [place] 00 (three) Medical times Branch daily. pantoprazol 2020-08 Yes [id number] 40mg Take 1 Univers e 40 mg EC 2-03 tablet by ity of tablet 00:00: mouth 00 daily. Medical Branch psyllium 2020-08 Yes [id number] 1{packe Take 1 [facility] 3.4 gram 2-03 t} Packet by ity of packet 00:00: mouth 3 00 (three) Medical times Branch daily. loperamide 2020-08 Yes [id number] 4mg Take 2 [facility] 2 mg 2-03 capsules ity of capsule 00:00: by mouth 3 [place] 00 (three) Medical times Branch daily. pantoprazol 2020-08 Yes [id number] 40mg Take 1 Univers e 40 mg EC 2-03 tablet by ity of tablet 00:00: mouth 00 daily. Medical Branch psyllium 2020-08- No [id number] 1{packe Take 1 Univers 3.4 gram 2-03 12-13 t} Packet by ity o f packet 00:00: 00:00 mouth 3 [place] 00 :00 (three) Medical times Branch daily. loperamide 2020-08- No [id number] 4mg Take 2 Univers 2 mg 2-11 02-13 capsules ity of capsule 00:00: 00:00 by mouth 3 [place] 00 :00 (three) Medical times Branch daily. pantoprazol 2020-08- No [id number] 40mg Take 1 Univers e 40 mg EC 2-11 02-13 tablet by ity of tablet 00:00: 00:00 mouth [place] 00 :00 daily. Medical Branch psyllium 2020-08- No [id number] 1{packe Take 1 Univers 3.4 gram 2-03 - t} Packet by ity o f packet 00:00: 00:00 mouth 3 [place] 00 :00 (three) Medical times Branch daily for 90 days. loperamide 2020-08- No [id number] 4mg Take 2 Univers 2 mg 2-11 02- capsules ity of capsule 00:00: 00:00 by mouth 3 [place] 00 :00 (three) Medical times Branch daily for 90 days. pantoprazol 2020-08- No [id number] 40mg Take 1 Univers e 40 mg EC 2-07-26 tablet by ity of tablet 00:00: 00:00 mouth [place] 00 :00 daily for Medical 90 days. Branch psyllium 2020-08- No [id number] 1{packe Take 1 Univers 3.4 gram 2-03 - t} Packet by ity o f packet 00:00: 00:00 mouth 3 [place] 00 :00 (three) Medical times Branch daily. pantoprazol 2020-08- No [id number] 40mg Take 1 Univers e 40 mg EC 2-11 02- tablet by ity of tablet 00:00: 00:00 mouth [place] 00 :00 daily. Medical Branch loperamide 2020-08- No [id number] 4mg Take 2 Univers 2 mg 2-03 12- capsules ity of capsule 00:00: 00:00 by mouth 3 [place] 00 :00 (three) Medical times Branch daily. psyllium 2020-08- No [id number] 1{packe Take 1 Univers 3.4 gram 2-03 12-03 t} Packet by ity o f packet 00:00: 00:00 mouth 3 [place] 00 :00 (three) Medical times Branch daily. loperamide 2020-08 No [id number] 4mg Take 2 Univers 2 mg 09-26 capsules ity of capsule 00:00: 00:00 by mouth 3 [place] 00 :00 (three) Medical times Branch daily. pantoprazol 2020-08 No [id number] 40mg Take 1 Univers e 40 mg EC 09-26 tablet by ity of tablet 00:00: 00:00 mouth [place] 00 :00 daily. Medical Branch pantoprazol 2020-08 Yes 40mg 40 mg, Univ ers e 09-25 Oral, ity of (PROTONIX) 15:00: DAILY, [place] EC tablet 00 First dose Medi mariusz [address] [facility] Branch 07/25/21 at 0900, Until Discontinu ed, Routine psyllium 2020-08 Yes 1{packe 1 Packet, U nivers (METAMUCIL 09-25 t} Oral, TID, ity of FIBER 14:00: First dose [place] SINGLES) 00 (after Medical 3.4 gram last Branch packet 1 modificati Packet on) on [place] 07/25/21 at 0800, Until Discontinu ed, Routine diphenoxyla 2020-08- No 1{tbl} 1 tablet, Univers te-atropine 09-25 Oral, BID, i ty of (LOMOTIL) 14:00: 12:39 First dose [place] 2.5-0.025 00 :[address] [facility] Medical mg tablet 1 07/25/21 at Br anch tablet 0800, Until Discontinu ed, Routine NaCl 0.9% 2020-08 Yes 1000mL at 999 Univ ers (NS) bolus 2-02 mL/hr, ity of infusion 13:20: 1,000 mL, [place] 1,000 mL 46 IV Medical Piggyback, Branch PRN, Starting on [place] 07/25/21 at 0720, Until Discontinu ed, Routine NaCl 0.9% 2020-08 No 1000mL at 999 Uni vers (NS) IV 2 12-01 mL/hr, IV ity of infusion 22:45: 21:43 Infusion, [place] 1,000 mL 00 :00 ONCE, 1 Medical dose, On Branch Thu07/24/21 at 1645, Routine lactated 2020-08 No 500mL at 999 Unive rs ringers IV 09-24 mL/hr, 500 it y of infusion 17:15: 17:15 mL, [place] 500 mL 00 :00 Intravenou Medical s, ONCE, 1 Branch dose, On Thu07/24/21 at 1115, Routine loperamide 2020-08 Yes 4mg 4 mg, Univer s (IMODIUM 09-24 Oral, TID, ity o f A-D) 14:00: First dose [place] capsule 4 00 (after Medical mg last Branch modificati on) on Thu07/24/21 at 0800, Until Discontinu ed, Routine psyllium 2020-08 No 1{packe 1 Packet, Univers (METAMUCIL 09-24 t} Oral, BID, it y of FIBER 14:00: 12:09 First dose [place] SINGLES) 00 :58 (after Medical 3.4 gram last Branch packet 1 modificati Packet on) on Thu07/24/21 at 0800, Until Discontinu ed, Routine enoxaparin 2020-08 Yes 40mg 40 mg, Unive rs (LOVENOX) 09-22 Subcutaneo ity of injection 23:00: [place], [place]ILY, [place] 40 mg 00 First dose Medical on Thu07/23/21 at 1700, Until Discontinu ed, Routine psyllium 2020-08 No 1{packe 1 Packet, Univers (METAMUCIL 09-22 t} Oral, ity of FIBER 15:00: 11:41 DAILY, [place] SINGLES) 00 :12 First dose Medic al 3.4 gram on Thu packet 1 07/23/21 Packet at 0900, Until Discontinu ed, Routine loperamide 2020-08- No 2mg 2 mg, Unive rs (IMODIUM 09-22 Oral, TID, ity of A-D) 07:45: 11:41 First dose [place] capsule 2 00 :12 (after Medical mg last Branch modificati on) on Thu07/23/21 at 0145, Until Discontinu ed, Routine pantoprazol 2020-08 No 40mg 40 mg, Uni vers e 09-22 Slow IV ity of (PROTONIX) 07:45: 20:38 Push, [place] injection 00 :59 Q24H, Medical 40 mg First dose Branch on Thu07/23/21 at 0145, Until Discontinu ed D5W 0.45% 2020-08- No IV Univers NaCl 1-30 12-01 Infusion, ity of (1/2NS) 1 L 07:45: 16:08 at 125 [place] + KCL 20 00 :16 mL/hr, Medical mEq CONTINUOUS Branch , Starting on Thu07/23/21 at 0145, Until Thu07/24/21 at 1008, Routine ondansetron 2020-08 Yes 4mg 4 mg, Slow Univers (ZOFRAN 1-30 IV Push, ity of (PF)) 07:31: Administer [place] injection 4 37 over 15 Medic al mg Minutes, Branch Q6HPRN, Starting on Thu07/23/21 at 0131, Until Discontinu ed, Routine, Nausea and Vomiting (N/V) acetaminoph 2020-08 Yes 650mg 650 mg, Un piyush en 130 Oral, ity of (TYLENOL) 07:31: Q6HPRN, [place] tablet 650 37 Starting Medic al mg on Thu Branch 07/23/21 at 0131, Until Discontinu ed, Routine, Pain (scale 1-3) NaCl 0.9% 2020-08- No 1000mL at 999 Uni vers (NS) bolus 1-30 11-30 mL/hr, ity of infusion 06:46: 07:00 1,000 mL, [place] 1,000 mL 00 :00 IV Medical Piggyback, Branch ONCE, 1 dose, On Thu07/23/21 at 0100, STAT heparin 2020-08 Yes 5000U 5,000 Univers (porcine) 0-09 Units, ity of injection 22:00: Subcutaneo [place] 5,000 Units 00 us, Q8H, Medi mariusz First dose Branch on Thu06/01/21 at 1700, Until Discontinu ed, Routine pantoprazol 2020-08 Yes 40mg 40 mg, Univ ers e 0-09 Oral, BID, ity of (PROTONIX) 14:45: First dose [place] EC tablet 00 on Thu Medical 40 mg 06/01/21 at Branch 0945, Until Discontinu ed, Routine psyllium 2020-08 Yes 1{packe 1 Packet, U nivers (METAMUCIL 0-09 t} Oral, ity of FIBER 14:45: DAILY, [place] SINGLES) 00 First dose Medic al 3.4 gram on [facility] packet 1 06/01/21 at Packet 0945, Until Discontinu ed, Routine traMADoL 2020-08 Yes 50mg 50 mg, Univers (ULTRAM) 0-09 Oral, ity of tablet 50 14:39: Q6HPRN, [place] mg 34 Starting [facility] 06/01/21 at 0939, Until Discontinu ed, Routine, Pain (scale 4-6) HYDROcodone 2020-08 Yes 1{tbl} 1 tablet, Univers -acetaminop 0-09 Oral, ity of hen (NORCO 14:39: [facility] 5-325 mg 16 Starting Medi mariusz tablet 1 on [facility] tablet 06/01/21 at 0939, Until Discontinu ed, Routine, Pain (scale 7-10) ondansetron 2020-08 Yes 4mg 4 mg, Slow Univers (ZOFRAN 0-09 IV Push, ity of (PF)) 14:38: Q6HPRN, [place] injection 4 58 Starting Medi mariusz mg on [facility] 06/01/21 at 0938, Until Discontinu ed, Routine, Nausea and Vomiting (N/V) acetaminoph 2020-08 Yes 650mg 650 mg, Un piyush en 0-09 Oral, ity of (TYLENOL) 14:36: Q6HPRN, [place] tablet 650 07 Starting Medic al mg on [facility] 06/01/21 at 0936, Until Discontinu ed, Routine, Pain (scale 1-3), Temp > 38.5 C NaCl 0.9% 2020-08- No 1000mL at 125 Uni vers (NS) IV 0-09 10-10 mL/hr, ity of infusion 02:15: 14:57 Intravenou [place] 1,000 mL 00 :33 s, Medical CONTINUOUS Branch , Starting on Thu05/31/21 at 2115, Until 06/02/21 at 0957, Routine NaCl 0.9% 2020-08- No 1000mL at 999 Uni vers (NS) bolus 0-09 10-09 mL/hr, ity of infusion 01:45: 00:58 1,000 mL, [place] 1,000 mL 00 :00 IV Medical Piggyback, Branch ONCE, 1 dose, On Thu05/31/21 at 2045, STAT iopamidol 2020-08- No [id number] 100mL 100 mL, Univers (ISOVUE 0-09 10-09 Intravenou ity o f 370-500 mL) 00:30: 00:30 s, ONCE, 1 [place] injection 00 :00 dose, On Medica l 100 mL [facility] 05/31/21 at 1930, Routine morpHINE 2020-08- No 4mg 4 mg, Slow Un piyush injection 4 0- 10-08 IV Push, ity of mg 23:30: 22:48 ONCE, 1 [place] 00 :00 dose, On Medical Fri [place] 05/31/21 at 1830, STAT ondansetron 2020-08- No 8mg 8 mg, Slow Univers (ZOFRAN 0-08 IV Push, ity of (PF)) 23:30: 22:47 ONCE, 1 [place] injection 8 00 :00 dose, On Medi mariusz mg [facility] 05/31/21 at 1830, JOÃO NaCl 0.9% 2020-08- No 500mL at 999 Univ ers (NS) bolus 0-08 10-08 mL/hr, 500 it y of infusion 23:30: 23:59 mL, IV [place] 500 mL 00 :00 Piggyback, Medical ONCE, 1 Branch dose, On Thu05/31/21 at 1830, STAT psyllium 0 Yes [id number] 1{packe Take 1 Univers 3.4 gram 9-29 t} Packet by ity of packet 00:00: mouth [place] 00 daily. Medical Branch psyllium Yes [id number] 1{packe Take 1 [facility] 3.4 gram 9-29 t} Packet by ity of packet 00:00: mouth [place] 00 daily. Medical Branch psyllium 0 Yes [id number] 1{packe Take 1 [facility] 3.4 gram 9-29 t} Packet by ity of packet 00:00: mouth [place] 00 daily. Medical Branch psyllium Yes [id number] 1{packe Take 1 [facility] 3.4 gram 9-29 t} Packet by ity of packet 00:00: mouth [place] 00 daily. Medical Branch psyllium Yes [id number] 1{packe Take 1 [facility] 3.4 gram 9-29 t} Packet by ity of packet 00:00: mouth [place] 00 daily. Medical Branch psyllium 202- No [id number] 1{packe Take 1 Univers 3.4 gram -29 12-13 t} Packet by ity o f packet 00:00: 00:00 mouth [place] 00 :00 daily. Medical Branch enoxaparin Yes 40mg 40 mg, Unive rs (LOVENOX) 05-21 Subcutaneo ity of injection 14:00: us, DAILY, [place] 40 mg 00 First dose Medical on Thu [place] 05/21/21 at 0900, Until Discontinu ed, Routine ondansetron Yes 4mg 4 mg, Slow Univers (ZOFRAN 05-21 IV Push, ity of (PF)) 00:15: Q6HPRN, [place] injection 4 13 Starting Medi mariusz mg on Thu05/20/21 at 191, Until Discontinu ed, Routine, Nausea and Vomiting (N/V) HYDROcodone Yes 1{tbl} 1 tablet, Univers -acetaminop 05-21 Oral, ity of hen (NORCO) 00:15: Q6HPRN, [place] 10-325 mg 10 Starting Medica l tablet 1 on Thu [place] tablet 05/20/21 at 1914, Until Discontinu ed, Routine, Pain (scale 7-10) traMADoL No 50mg 50 mg, Univer s (ULTRAM) 05-2130 Oral, ity of tablet 50 00:15: 00:14 Q8HPRN, [place] mg 07 :07 Starting Medical on Thu05/20/21 at 191, Until 05/22/21 at 1914, Routine, Pain (scale 4-6) acetaminoph Yes 650mg 650 mg, Un piyush en 05-21 Oral, ity of (TYLENOL) 00:15: Q6HPRN, [place] tablet 650 01 Starting Medic al mg on [facility] 05/20/21 at 1915, Until Discontinu ed, Routine, Pain (scale 1-3) D5W 0.45% Yes IV Univers NaCl 05-20 Infusion, ity of (1/2NS) 1 L 23:30: at 125 [place] + KCL 20 00 mL/hr, Medical mEq CONTINUOUS Branch , Starting on Thu05/20/21 at 1830, Until Discontinu ed, Routine psyllium Yes 1{packe 1 Packet, U nivers (METAMUCIL 05-20 t} Oral, ity of FIBER 22:15: DAILY, [place] SINGLES) 00 First dose Medic al 3.4 gram (after Branch packet 1 last Packet modificati on) on Thu05/20/21 at 1715, Until Discontinu ed, Routine lactated 2020- No 2000mL at 999 Univ ers ringers IV 05-20 mL/hr, ity of infusion 22:02: 22:36 2,000 mL, [place] 2,000 mL 00 :00 Intravenou Medic al s, ONCE, 1 Branch dose, On Thu05/20/21 at 1715, JOÃO ondansetron 2020- No 4mg 4 mg, Slow Univers (ZOFRAN 05-20 IV Push, ity of (PF)) 21:00: 20:15 ONCE, 1 [place] injection 4 00 :00 dose, On Medi mariusz mg [facility] 05/20/21 at 1600, JOÃO morpHINE 2020- No 4mg 4 mg, Slow Un piyush injection 4 05-20 IV Push, ity of mg 21:00: 20:15 ONCE, 1 [place] 00 :00 dose, On Medical [facility] 05/20/21 at 1600, STAT NaCl 0.9% 202- No 500mL at 999 Univ ers (NS) bolus 05-20 mL/hr, 500 it y of infusion 21:00: 21:00 mL, IV [place] 500 mL 00 :00 Piggyback, Medical ONCE, 1 Branch dose, On [facility] 05/20/21 at 1600, STAT pantoprazol Yes 40mg 40 mg, Univ ers e 05-10 Oral, BID, ity of (PROTONIX) 01:00: First dose [place] EC tablet 00 on [place] [facility] 40 mg 05/09/21 at [place] 1999, Until Discontinu ed, Routine pantoprazol Yes 40mg 40 mg, Univ ers e 9-17 Oral, BID, ity of (PROTONIX) 01:00: First dose [place] EC tablet 00 on [place] [facility] 40 mg 05/09/21 at [place] 1999, Until Discontinu ed, Routine pantoprazol 2020- No [id number] 40mg Take 1 Univers e 40 mg EC 16 16 tablet by ity of tablet 00:00: 05:59 mouth 2 [place] 00 :00 (two) Medical times [place] daily pantoprazol 2020- No [id number] 40mg Take 1 Univers e 40 mg EC 05-0916 tablet by ity of tablet 00:00: 05:59 mouth 2 [place] 00 :00 (two) Medical times [place] daily pantoprazol 2020- No [id number] 40mg Take 1 Univers e 40 mg EC 05-0916 tablet by ity of tablet 00:00: 05:59 mouth 2 [place] 00 :00 (two) Medical times [place] daily pantoprazol 2020- No [id number] 40mg Take 1 Univers e 40 mg EC 16 16 tablet by ity of tablet 00:00: 05:59 mouth 2 [place] 00 :00 (two) Medical times [place] daily pantoprazol 2020- No [id number] 40mg Take 1 Univers e 40 mg EC 16 16 tablet by ity of tablet 00:00: 05:59 mouth 2 [place] 00 :00 (two) Medical times [place] daily pantoprazol 2020- No [id number] 40mg Take 1 Univers e 40 mg EC 16 16 tablet by ity of tablet 00:00: 05:59 mouth 2 [place] 00 :00 (two) Medical times [place] daily pantoprazol 2020- No [id number] 40mg Take 1 Univers e 40 mg EC 16 16 tablet by ity of tablet 00:00: 05:59 mouth 2 [place] 00 :00 (two) Medical times [place] daily enoxaparin Yes 40mg 40 mg, Unive rs (LOVENOX) 9-15 Subcutaneo ity of injection 16:15: us, Q24H, [place] 40 mg 00 First dose Medical on Thu Branch 05/08/21 at 1115, Until Discontinu ed, Routine enoxaparin Yes 40mg 40 mg, Unive rs (LOVENOX) 9-15 Subcutaneo ity of injection 16:15: us, Q24H, [place] 40 mg 00 First dose Medical on Thu Branch 05/08/21 at 1115, Until Discontinu ed, Routine D5W-LR IV 2020- No 1000mL at 75 Univ ers infusion 05-08 09-16 mL/hr, IV ity o f 1,000 mL 15:15: 13:02 Infusion, [place] 00 :56 CONTINUOUS Medical , Starting Branch on Thu05/08/21 at 1015, Until [place] 05/09/21 at 0802, Routine D5W-LR IV 2020- No 1000mL at 75 Univ ers infusion 05-08 09-16 mL/hr, IV ity o f 1,000 mL 15:15: 13:02 Infusion, [place] 00 :56 CONTINUOUS Medical , Starting Branch on Thu05/08/21 at 1015, Until [place] 05/09/21 at 0802, Routine D5W-LR IV 2020- No 1000mL at 125 Uni vers infusion 05-08 09-15 mL/hr, IV ity o f 1,000 mL 12:15: 15:05 Infusion, [place] 00 :30 CONTINUOUS Medical , Starting Branch on Thu05/08/21 at 0715, Until Thu05/08/21 at 1005, Routine D5W-LR IV 2020- No 1000mL at 125 Uni vers infusion 05-08 09-15 mL/hr, IV ity o f 1,000 mL 12:15: 15:05 Infusion, [place] 00 :30 CONTINUOUS Medical , Starting Branch on Thu05/08/21 at 0715, Until Thu05/08/21 at 1005, Routine lactated 2020- No 1000mL at 999 Univ ers ringers IV 05-08 09-15 mL/hr, ity of infusion 12:03: 13:04 1,000 mL, [place] 1,000 mL 00 :00 Intravenou Medic al s, ONCE, 1 Branch dose, On Thu05/08/21 at 0715, Routine lactated 2020- No 1000mL at 999 Univ ers ringers IV 05-08-15 mL/hr, ity of infusion 12:03: 13:04 1,000 mL, [place] 1,000 mL 00 :00 Intravenou Medic al s, ONCE, 1 Branch dose, On Thu05/08/21 at 0715, Routine D5W-LR IV 2020- No 1000mL at 70 Univ ers infusion 05-08-15 mL/hr, IV ity o f 1,000 mL 05:30: 12:03 Infusion, [place] 00 :16 CONTINUOUS Medical , Starting Branch on Thu05/08/21 at 0030, Until Thu05/08/21 at 0703, Routine D5W-LR IV 2020- No 1000mL at 70 Univ ers infusion 05-08-15 mL/hr, IV ity o f 1,000 mL 05:30: 12:03 Infusion, [place] 00 :16 CONTINUOUS Medical , Starting Branch on Thu05/08/21 at 0030, Until Thu05/08/21 at 0703, Routine pantoprazol No 40mg 40 mg, Uni vers e 05-08 Slow IV ity of (PROTONIX) 04:30: 14:42 Push, [place] injection 00 :43 Q12H, Medical 40 mg First dose Branch on Thu05/07/21 at 2330, Until Discontinu ed pantoprazol 2020- No 40mg 40 mg, Uni vers e 05-08 Slow IV ity of (PROTONIX) 04:30: 14:42 Push, [place] injection 00 :43 Q12H, Medical 40 mg First dose Branch on Thu05/07/21 at 2330, Until Discontinu ed ondansetron Yes 4mg 4 mg, Slow Univers (ZOFRAN 05-08 IV Push, ity of (PF)) 04:16: Q6HPRN, [place] injection 4 34 Starting Medi mariusz mg on Tu Branch 05/07/21 at 2316, Until Discontinu ed, Routine, Nausea and Vomiting (N/V) ondansetron Yes 4mg 4 mg, Slow Univers (ZOFRAN 05-08 IV Push, ity of (PF)) 04:16: Q6HPRN, [place] injection 4 34 Starting Medi mariusz mg on [facility] 05/07/21 at 2316, Until Discontinu ed, Routine, Nausea and Vomiting (N/V) morpHINE 2020- No 4mg 4 mg, Slow Un piyush injection 4 05-08 IV Push, ity of mg 04:16: 04:15 Q4HPRN, [place] 32 :32 Starting Medical on [facility] 05/07/21 at 2316, Until 05/08/21 at 2315, Routine, Pain (scale 7-10) morpHINE 2020- No 4mg 4 mg, Slow Un piyush injection 4 05-08 IV Push, ity of mg 04:16: 04:15 Q4HPRN, [place] 32 :32 Starting Medical on [facility] 05/07/21 at 2316, Until Thu05/08/21 at 2315, Routine, Pain (scale 7-10) diazePAM 2020- No 5mg 5 mg, Slow Un piyush (VALIUM) 05-08 IV Push, ity of injection 5 02:45: 02:49 ONCE, 1 [place] mg 00 :00 dose, On [facility] 05/07/21 at 2145, STAT diazePAM 2020- No 5mg 5 mg, Slow Un piyush (VALIUM) 05-08 IV Push, ity of injection 5 02:45: 02:49 ONCE, 1 [place] mg 00 :00 dose, On [facility] 05/07/21 at 2145, STAT iopamidol 2020- No [id number] 100mL 100 mL, Univers (ISOVUE 05-08 Intravenou ity o f 370-500 mL) 02:15: 01:08 s, ONCE, 1 [place] injection 00 :00 dose, On Medica l 100 mL [facility] 05/07/21 at 2115, Routine iopamidol 2020- No [id number] 100mL 100 mL, Univers (ISOVUE 05-08 Intravenou ity o f 370-500 mL) 02:15: 01:08 s, ONCE, 1 [place] injection 00 :00 dose, On Medica l 100 mL [facility] Branch 05/07/21 at 2115, Routine morpHINE 2020- No 4mg 4 mg, Slow Un piyush injection 4 05-08 IV Push, ity of mg 01:45: 00:48 ONCE, 1 [place] 00 :00 dose, On Medical e Branch 05/07/21 at 2044, JOÃO ondansetron 2020- No 4mg 4 mg, Slow Univers (ZOFRAN 05-08 IV Push, ity of (PF)) 01:45: 00:47 ONCE, 1 [place] injection 4 00 :00 dose, On Medi mariusz mg [facility] Branch 05/07/21 at 2044, JOÃO morpHINE 2020- No 4mg 4 mg, Slow Un piyush injection 4 05-08 IV Push, ity of mg 01:45: 00:48 ONCE, 1 [place] 00 :00 dose, On Medical [facility] 05/07/21 at 204, JOÃO ondansetron 2020- No 4mg 4 mg, Slow Univers (ZOFRAN 05-08 IV Push, ity of (PF)) 01:45: 00:47 ONCE, 1 [place] injection 4 00 :00 dose, On Medi mariusz mg [facility] 05/07/21 at 204, JOÃO flu vaccine 2020- No .5mL 0.5 mL, Un piyush 6 months 08-24 Intramuscu ity of and up (PF) 17:30: 18:09 lar, ONCE, [place] (FLUZONE 00 :00 1 dose, Medical QUAD 08/24/20 Branch [id number] at 1130, (PF)) Routine syringe 0.5 mL sulfamethox 2020- No 1{tbl} 1 tablet, [facility] azole-trime 08-24 Oral, BID, i ty of thoprim 02:00: 13:59 7 doses, [place] (BACTRIM 00 :00 First dose Medic al DS) 800-[address] [facility] Branch mg per 08/23/20 tablet 1 at 1999, tablet Last dose on 08/26/20 at 2000, JOÃO
Re ason for Anti-Infec tive: Empiric Therapy for Suspected Infection< br>Empiric Therapy Site: Skin / Soft tissue
Duration of therapy: 72 hours sulfamethox 2020- No [id number] 1{tbl} Take 1 Univers azole-trime 08-24 tablet by it y of 00:00: 05:59 mouth 2 [place] 800-160 mg 00 :00 (two) Medical per tablet times Branch daily for 7 days. enoxaparin 2019-08 Yes 40mg 40 mg, Unive rs (LOVENOX) 2-31 Subcutaneo ity of injection 21:30: us, Q24H, [place] 40 mg 00 First dose Medical on [facility] Branch 08/23/20 at 1530, Until Discontinu ed, Routine docusate 2019-08 Yes 100mg 100 mg, Unive rs (COLACE) 2-31 Oral, ity of capsule 100 15:00: DAILY, [place] mg 00 First dose Medical on [facility] Branch 08/23/20 at 0900, Until Discontinu ed, Routine psyllium 2019-08 Yes 3{packe 3 Packet, U nivers (METAMUCIL 2- t} Oral, TID, ity of FIBER 14:00: First dose [place] SINGLES) [address] [facility] Medical 3.4 gram 08/23/20 Branch packet 3 at 0800, Packet Until Discontinu ed, Routine heparin 2019-08 2020- No 5000U 5,000 Univers (porcine) 2-23 08- Units, ity of injection 14:00: 20:18 Subcutaneo [place] 5,000 Units 00 :30 us, Q12H, Med ical First dose Branch on [place] 08/23/20 at 0800, Until Discontinu ed, Routine NaCl 0.9% 2019-08 Yes 1000mL at 75 Unive rs (NS) IV 2-31 mL/hr, IV ity of infusion 04:45: Infusion, [place] 1,000 mL 00 CONTINUOUS Medic al , Starting Branch 08/22/20 at 2245, Until Discontinu ed, Routine melatonin 2019- Yes 6mg 6 mg, Univers (MELATIN) 2-31 Oral, PRN ity o f tablet 6 mg 03:12: - SEE [place] 40 INSTRUCTIO Medical NS, 1 Branch dose, Starting 08/22/20 at 2111, Until Discontinu ed, Routine, Insomnia, HS labetaloL 2019-08 Yes 10mg 10 mg, Univer s (NORMODYNE) 2-31 Slow IV ity o f injection 03:12: Push, [place] 10 mg 33 Q6HPRN, Medical Starting Branch Thu08/22/20 at 2111, Until Discontinu ed, Routine, hypertensi on ondansetron 2019-08 Yes 4mg 4 mg, Slow Univers (ZOFRAN 2 IV Push, ity of (PF)) 03:12: Q6HPRN, [place] injection 4 08 Starting Medi mariusz mg Wed Branch 08/22/20 at 2111, Until Discontinu ed, Routine, Nausea and Vomiting (N/V) acetaminoph 2019-08 Yes 650mg 650 mg, Un piyush en 2 Oral, ity of (TYLENOL) 03:11: Q6HPRN, [place] tablet 650 56 Starting Medic al mg Wed Branch 08/22/20 at 2110, Until Discontinu ed, Routine, Pain (scale 1-3) NaCl 0.9% 2019-08 2020- No 1000mL at 999 Uni vers (NS) bolus 12-31 mL/hr, ity of infusion 21:45: 00:21 1,000 mL, [place] 1,000 mL 00 :00 IV Medical Infusion, Branch ONCE, 1 dose, Thu08/22/20 at 1545, JOÃO iohexol 2019-08- No 100mL 100 mL, Unive rs (OMNIPAQUE 09-09 Intravenou it y of 350 00:30: 00:14 s, ONCE, 1 [place] BULK-100 00 :00 dose, Mon Medica l mL) 07/09/20 Branch injection at 1830, 100 mL Routine cefTRIAXone 2019-08 2020- No 1000mg 1,000 mg, Univers (ROCEPHIN) 09-08 IV ity of 1,000 mg in 23:30: 00:58 Piggyback, [place] NaCl 0.9% 00 :00 ONCE, 1 Medical (NS) 50 mL dose, Mon Bran ch MINI-BAG 07/09/20 at 1730, 50 mL
Reas on for Anti-Infec tive: Documented Infection< br>Documen dain Infection Site: HEENT
D uration of Therapy: Other (see Comments) NaCl 0.9% 2019-08 No 1000mL at 999 Uni vers (NS) bolus 1-16 11-17 mL/hr, ity of infusion 22:45: 00:07 1,000 mL, [place] 1,000 mL 00 :00 IV Medical Infusion, Branch ONCE, 1 dose, 07/09/20 at 1645, JOÃO amoxicillin 2019-08 Yes [id number] 1{tbl} Take 1 Univers -clavulanat 1-16 tablet by ity of e 875-125 00:00: mouth [place] mg per 00 every 12 Medical tablet (twelve) Branch hours. amoxicillin 2019-08 [id number] 1{tbl} Take 1 Univers -clavulanat 1-16 08-24 tablet by it y of e 875-125 00:00: 00:00 mouth [place] mg per 00 :00 every 12 Medical tablet (twelve) Branch hours. iohexol 2019-08 No 120mL 120 mL, Unive rs (OMNIPAQUE 0-13 10-13 Intravenou it y of 350 13:15: 12:53 s, ONCE, 1 [place] BULK-150 00 :00 dose, Tue Medica l mL) 06/05/20 Branch injection at 0815, 120 mL Routine NaCl 0.9% 2019-08- No 1000mL at 999 Uni vers (NS) bolus 0-13 10-13 mL/hr, ity of infusion 12:00: 13:00 1,000 mL, [place] 1,000 mL 00 :00 IV Medical Infusion, Branch ONCE, 1 dose, 06/05/20 at 0700, JOÃO levoFLOXaci 2019-08- No 750mg 750 mg, U nivers n 0-08 10-08 Oral, Q24H ity of (LEVAQUIN) 04:30: 04:35 ABX, 1 [place] tablet 750 00 :00 dose, Medical mg First dose Branch (after last modificati on) on Thu05/30/20 at 2330, JOÃO
Re ason for Anti-Infec tive: Documented Infection< br>Documen dain Infection Site: Abdominal& lt;br>Dura tion of Therapy: 7 days ibuprofen 2020-1 Yes [id number] 800mg Take 1 U nivers 800 mg 0-08 tablet by ity of tablet 00:00: mouth [place] 00 every 6 Medical (six) Branch hours as needed for Pain (scale 4-6). loperamide 2020-1 Yes [id number] 4mg Take 2 U nivers 2 mg 0-08 capsules ity of capsule 00:00: by mouth 4 [place] 00 (four) Medical times Branch daily. diphenoxyla 2020-1 Yes [id number] 1{tbl} Take 1 Univers te-atropine 0-08 tablet by ity of 2.5-0.025 00:00: mouth [place] mg tablet 00 every 8 Medical (eight) Branch hours. psyllium 2020- Yes [id number] 3{packe Take 3 Univers 3.4 gram 0-08 t} Packets by ity o f packet 00:00: mouth 3 [place] 00 (three) Medical times Branch daily. psyllium 2020-1 Yes [id number] 3{packe Take 3 Univers 3.4 gram 0-08 t} Packets by ity o f packet 00:00: mouth 3 [place] 00 (three) Medical times Branch daily. diphenoxyla 2020- Yes [id number] 1{tbl} Take 1 Univers te-atropine 0-08 tablet by ity of 2.5-0.025 00:00: mouth [place] mg tablet 00 every 8 Medical (eight) Branch hours. loperamide 2020-1 Yes [id number] 4mg Take 2 U nivers 2 mg 0-08 capsules ity of capsule 00:00: by mouth 4 [place] 00 (four) Medical times Branch daily. ibuprofen 2020-1 Yes [id number] 800mg Take 1 U nivers 800 mg 0-08 tablet by ity of tablet 00:00: mouth [place] 00 every 6 Medical (six) Branch hours as needed for Pain (scale 4-6). psyllium 2020-1 Yes [id number] 3{packe Take 3 Univers 3.4 gram 0-08 t} Packets by ity o f packet 00:00: mouth 3 [place] 00 (three) Medical times Branch daily. diphenoxyla 2020- Yes [id number] 1{tbl} Take 1 Univers te-atropine 0-08 tablet by ity of 2.5-0.025 00:00: mouth [place] mg tablet 00 every 8 Medical (eight) Branch hours. loperamide 2020-1 Yes [id number] 4mg Take 2 U nivers 2 mg 0-08 capsules ity of capsule 00:00: by mouth 4 [place] 00 (four) Medical times Branch daily. ibuprofen 2020-1 Yes [id number] 800mg Take 1 U nivers 800 mg 0-08 tablet by ity of tablet 00:00: mouth [place] 00 every 6 Medical (six) Branch hours as needed for Pain (scale 4-6). psyllium 2020-1 Yes [id number] 3{packe Take 3 Univers 3.4 gram 0-08 t} Packets by ity o f packet 00:00: mouth 3 [place] 00 (three) Medical times Branch daily. diphenoxyla 2020-1 Yes [id number] 1{tbl} Take 1 Univers te-atropine 0-08 tablet by ity of 2.5-0.025 00:00: mouth [place] mg tablet 00 every 8 Medical (eight) Branch hours. loperamide 2020-1 Yes [id number] 4mg Take 2 U nivers 2 mg 0-08 capsules ity of capsule 00:00: by mouth 4 [place] 00 (four) Medical times Branch daily. ibuprofen 2020-1 Yes [id number] 800mg Take 1 U nivers 800 mg 0-08 tablet by ity of tablet 00:00: mouth [place] 00 every 6 Medical (six) Branch hours as needed for Pain (scale 4-6). psyllium 2020-1 Yes [id number] 3{packe Take 3 Univers 3.4 gram 0-08 t} Packets by ity o f packet 00:00: mouth 3 [place] 00 (three) Medical times Branch daily. diphenoxyla 2020-1 Yes [id number] 1{tbl} Take 1 Univers te-atropine 0-08 tablet by ity of 2.5-0.025 00:00: mouth [place] mg tablet 00 every 8 Medical (eight) Branch hours. loperamide 2020-1 Yes [id number] 4mg Take 2 U nivers 2 mg 0-08 capsules ity of capsule 00:00: by mouth 4 [place] 00 (four) Medical times Branch daily. ibuprofen 2020-1 Yes [id number] 800mg Take 1 U nivers 800 mg 0-08 tablet by ity of tablet 00:00: mouth [place] 00 every 6 Medical (six) Branch hours as needed for Pain (scale 4-6). psyllium 2020-1 Yes [id number] 3{packe Take 3 [facility] 3.4 gram 0-08 t} Packets by [facility] o f packet 00:00: mouth 3 [place] 00 (three) Medical times Branch daily. diphenoxyla 2020-1 Yes [id number] 1{tbl} Take 1 [facility] te-atropine 0-08 tablet by [facility] of 2.5-0.025 00:00: mouth [place] mg tablet 00 every 8 [facility] (eight) [facility] hours. loperamide 2020- Yes [id number] 4mg Take 2 [facility] 2 mg 0-08 capsules [facility] capsule 00:00: [place] mouth [place] (four[place] [facility] times [facility] daily. ibuprofen 2020- Yes [id number] 800mg Take 1 [facility] 800 mg 0-08 tablet by [facility] of tablet 00:00: mouth [place] 00 every 6 [facility] (six) Branch hours as needed for Pain (scale 4-6). psyllium 2020-1 Yes [id number] 3{packe Take 3 [facility] 3.4 gram 0-08 t} Packets by [facility] o f packet 00:00: mouth 3 [place] 00 (three) Medical times Branch daily. diphenoxyla 2020-1 Yes [id number] 1{tbl} Take 1 [facility] te-atropine 0-08 tablet by ity of 2.5-0.025 00:00: mouth [place] mg tablet 00 every 8 Medical (eight) Branch hours. loperamide 2020-1 Yes [id number] 4mg Take 2 [facility] n[facility] 2 mg 0-08 capsules it[facility] of capsule 00:00: by mouth 4 [place] 00 (four) [facility] times Branch daily. ibuprofen 2020-1 Yes [id number] 800mg Take 1 [facility] 800 mg 0-08 tablet by ity of tablet 00:00: mouth [place] 00 every 6 Medical (six) Branch hours as needed for Pain (scale 4-6). psyllium 2020-1 Yes [id number] 3{packe Take 3 [facility] 3.4 gram 0-08 t} Packets by ity o f packet 00:00: mouth 3 [place] 00 (three) Medical times Branch daily. diphenoxyla 2020-1 Yes [id number] 1{tbl} Take 1 [facility] te-atropine 0-08 tablet by ity of 2.5-0.025 00:00: mouth [place] mg tablet 00 every 8 Medical (eight) Branch hours. loperamide 2020-1 Yes [id number] 4mg Take 2 [facility] 2 mg 0-08 capsules [facility] of capsule 00:00: by mouth 4 [place] 00 (four) Medical times Branch daily. ibuprofen 2020-1 Yes [id number] 800mg Take 1 [facility] 800 mg 0-08 tablet by ity of tablet 00:00: mouth [place] 00 every 6 Medical (six) Branch hours as needed for Pain (scale 4-6). psyllium 2020-1 Yes [id number] 3{packe Take 3 [facility] 3.4 gram 0-08 t} Packets by ity o f packet 00:00: mouth 3 [place] 00 (three) Medical times Branch daily. diphenoxyla 2020-1 Yes [id number] 1{tbl} Take 1 [facility] te-atropine 0-08 tablet by ity of 2.5-0.025 00:00: mouth [place] mg tablet 00 every 8 Medical (eight) Branch hours. loperamide 2020-1 Yes [id number] 4mg Take 2 [facility] 2 mg 0-08 capsules it[facility] of capsule 00:00: by mouth 4 [place] 00 (four) Medical times Branch daily. ibuprofen 2020-1 Yes [id number] 800mg Take 1 [facility] 800 mg 0-08 tablet by ity of tablet 00:00: mouth [place] 00 every 6 Medical (six) Branch hours as needed for Pain (scale 4-6). psyllium 2020-1 Yes [id number] 3{packe Take 3 [facility] 3.4 gram 0-08 t} Packets by ity o f packet 00:00: mouth 3 [place] 00 (three) Medical times Branch daily. diphenoxyla 2020-1 Yes [id number] 1{tbl} Take 1 [facility] te-atropine 0-08 tablet by ity of 2.5-0.025 00:00: mouth [place] mg tablet 00 every 8 Medical (eight) Branch hours. loperamide 2020-1 Yes [id number] 4mg Take 2 [facility] 2 mg 0-08 capsules [facility] of capsule 00:00: by mouth 4 [place] 00 (four) Medical times Branch daily. ibuprofen 2020-1 Yes [id number] 800mg Take 1 [facility] 800 mg 0-08 tablet by ity of tablet 00:00: mouth [place] 00 every 6 Medical (six) Branch hours as needed for Pain (scale 4-6). psyllium 2020-1 Yes [id number] 3{packe Take 3 [facility] 3.4 gram 0-08 t} Packets by ity o f packet 00:00: mouth 3 [place] 00 (three) Medical times Branch daily. diphenoxyla 2020- Yes [id number] 1{tbl} Take 1 [facility] te-atropine 0-08 tablet by ity of 2.5-0.025 00:00: mouth [place] mg tablet 00 every 8 Medical (eight) Branch hours. loperamide 2020- Yes [id number] 4mg Take 2 [facility] 2 mg 0-08 capsules [facility] of capsule 00:00: by mouth 4 [place] 00 (four) Medical times Branch daily. ibuprofen 2020- Yes [id number] 800mg Take 1 [facility] 800 mg 0-08 tablet by ity of tablet 00:00: mouth [place] 00 every 6 Medical (six) Branch hours as needed for Pain (scale 4-6). psyllium 2020- Yes [id number] 3{packe Take 3 [facility] 3.4 gram 0-08 t} Packets by ity o f packet 00:00: mouth 3 [place] 00 (three) Medical times Branch daily. diphenoxyla 2020- Yes [id number] 1{tbl} Take 1 [facility] te-atropine 0-08 tablet by ity of 2.5-0.025 00:00: mouth [place] mg tablet 00 every 8 Medical (eight) Branch hours. loperamide 2020-1 Yes [id number] 4mg Take 2 [facility] 2 mg 0-08 capsules [facility] of capsule 00:00: by mouth 4 [place] 00 (four) Medical times Branch daily. ibuprofen 2020- Yes [id number] 800mg Take 1 [facility] 800 mg 0-08 tablet by ity of tablet 00:00: mouth [place] 00 every 6 Medical (six) Branch hours as needed for Pain (scale 4-6). psyllium 2020-1 Yes [id number] 3{packe Take 3 [facility] 3.4 gram 0-08 t} Packets by ity o f packet 00:00: mouth 3 [place] 00 (three) Medical times Branch daily. diphenoxyla 2020-1 Yes [id number] 1{tbl} Take 1 [facility] te-atropine 0-08 tablet by ity of 2.5-0.025 00:00: mouth [place] mg tablet 00 every 8 Medical (eight) Branch hours. loperamide 2019- Yes [id number] 4mg Take 2 [facility] 2 mg 0-08 capsules [facility] of capsule 00:00: by mouth 4 [place] 00 (four) Medical times Branch daily. ibuprofen 2019-08 Yes [id number] 800mg Take 1 [facility] 800 mg 0-08 tablet by ity of tablet 00:00: mouth [place] 00 every 6 Medical (six) Branch hours as needed for Pain (scale 4-6). psyllium 2019-08 Yes [id number] 3{packe Take 3 [facility] 3.4 gram 0-08 t} Packets by ity o f packet 00:00: mouth 3 [place] 00 (three) Medical times Branch daily. diphenoxyla 2019- Yes [id number] 1{tbl} Take 1 [facility] te-atropine 0-08 tablet by ity of 2.5-0.025 00:00: mouth [place] mg tablet 00 every 8 Medical (eight) Branch hours. loperamide 2019-08 Yes [id number] 4mg Take 2 [facility] 2 mg 0-08 capsules [facility] of capsule 00:00: by mouth 4 [place] 00 (four) Medical times Branch daily. ibuprofen 2019-08 Yes [id number] 800mg Take 1 [facility] 800 mg 0-08 tablet by ity of tablet 00:00: mouth [place] 00 every 6 Medical (six) Branch hours as needed for Pain (scale 4-6). acetaminoph 2019-08- No [id number] 650mg Take 2 [facility] en 325 mg 0-08 10-09 tablets by ity of tablet 00:00: 04:59 mouth [place] 00 :00 every 6 Medical (six) Branch hours as needed for Pain (scale 1-3). acetaminoph 2019-08 No [id number] 650mg Take 2 [facility] en 325 mg 0-08 10-09 tablets by ity of tablet 00:00: 04:59 mouth [place] 00 :00 every 6 Medical (six) Branch hours as needed for Pain (scale 1-3). acetaminoph 2019-08 No [id number] 650mg Take 2 [facility] en 325 mg 0-08 10-09 tablets by ity of tablet 00:00: 04:59 mouth [place] 00 :00 every 6 Medical (six) Branch hours as needed for Pain (scale 1-3). acetaminoph 2019-08 No [id number] 650mg Take 2 [facility] en 325 mg 0-08 10-09 tablets by ity of tablet 00:00: 04:59 mouth [place] 00 :00 every 6 Medical (six) Branch hours as needed for Pain (scale 1-3). acetaminoph 2019-08 No [id number] 650mg Take 2 [facility] en 325 mg 0-08 10-09 tablets by ity of tablet 00:00: 04:59 mouth [place] 00 :00 every 6 Medical (six) Branch hours as needed for Pain (scale 1-3). acetaminoph 2019-08 No [id number] 650mg Take 2 [facility] en 325 mg 0-08 10-09 tablets by ity of tablet 00:00: 04:59 mouth [place] 00 :00 every 6 Medical (six) Branch hours as needed for Pain (scale 1-3). acetaminoph 2019-08 No [id number] 650mg Take 2 [facility] en 325 mg 0-08 10-09 tablets by ity of tablet 00:00: 04:59 mouth [place] 00 :00 every 6 Medical (six) Branch hours as needed for Pain (scale 1-3). acetaminoph 2019-08 No [id number] 650mg Take 2 [facility] en 325 mg 0-08 10-09 tablets by ity of tablet 00:00: 04:59 mouth [place] 00 :00 every 6 Medical (six) Branch hours as needed for Pain (scale 1-3). acetaminoph 2019-08 No [id number] 650mg Take 2 [facility] en 325 mg 0-08 10-09 tablets by ity of tablet 00:00: 04:59 mouth [place] 00 :00 every 6 Medical (six) Branch hours as needed for Pain (scale 1-3). acetaminoph 2019-08 No [id number] 650mg Take 2 [facility] en 325 mg 0-08 10-09 tablets by ity of tablet 00:00: 04:59 mouth [place] 00 :00 every 6 Medical (six) Branch hours as needed for Pain (scale 1-3). acetaminoph 2019-08 No [id number] 650mg Take 2 [facility] en 325 mg 0-08 10-09 tablets by ity of tablet 00:00: 04:59 mouth [place] 00 :00 every 6 Medical (six) Branch hours as needed for Pain (scale 1-3). acetaminoph 2019-08 No [id number] 650mg Take 2 [facility] en 325 mg 0-08 10-09 tablets by ity of tablet 00:00: 04:59 mouth [place] 00 :00 every 6 Medical (six) Branch hours as needed for Pain (scale 1-3). acetaminoph 2019-08 No [id number] 650mg Take 2 [facility] en 325 mg 0-08 10-09 tablets by ity of tablet 00:00: 04:59 mouth [place] 00 :00 every 6 Medical (six) Branch hours as needed for Pain (scale 1-3). acetaminoph 2019-08 No [id number] 650mg Take 2 [facility] en 325 mg 0-08 10-09 tablets by ity of tablet 00:00: 04:59 mouth [place] 00 :00 every 6 Medical (six) Branch hours as needed for Pain (scale 1-3). psyllium 2019-08 No [id number] 3{packe Take 3 [facility] 3.4 gram 0-08 -16 t} Packets by ity of packet 00:00: 00:00 mouth 3 [place] 00 :00 (three) Medical times Branch daily. diphenoxyla 2019-08 No [id number] 1{tbl} Take 1 [facility] te-atropine 0-08 -16 tablet by it y of 2.5-0.025 00:00: 00:00 mouth [place] mg tablet 00 :00 every 8 Medical (eight) Branch hours. loperamide 2019-08 No [id number] 4mg Take 2 [facility] 2 mg 0-08 -16 capsules ity of capsule 00:00: 00:00 by mouth 4 [place] 00 :00 (four) Medical times Branch daily. ibuprofen 2019-08 No [id number] 800mg Take 1 [facility] 800 mg 0-08 -16 tablet by ity of tablet 00:00: 00:00 mouth [place] 00 :00 every 6 Medical (six) Branch hours as needed for Pain (scale 4-6). acetaminoph 2019-08 No [id number] 650mg Take 2 [facility] en 325 mg 0-08 09-16 tablets by ity of tablet 00:00: 00:00 mouth [place] 00 :00 every 6 Medical (six) Branch hours as needed for Pain (scale 1-3). psyllium 2019-08 [id number] 3{packe Take 3 [facility] 3.4 gram 0-08 09-16 t} Packets by ity of packet 00:00: 00:00 mouth 3 [place] 00 :00 (three) Medical times Branch daily. diphenoxyla 2019-08 [id number] 1{tbl} Take 1 [facility] te-atropine 0-08 09-16 tablet by it y of 2.5-0.025 00:00: 00:00 mouth [place] mg tablet 00 :00 every 8 Medical (eight) Branch hours. loperamide 2019-08 [id number] 4mg Take 2 [facility] 2 mg 0-08 09-16 capsules ity of capsule 00:00: 00:00 by mouth 4 [place] 00 :00 (four) Medical times Branch daily. ibuprofen 2019-08 [id number] 800mg Take 1 [facility] 800 mg 0-08 09-16 tablet by ity of tablet 00:00: 00:00 mouth [place] 00 :00 every 6 Medical (six) Branch hours as needed for Pain (scale 4-6). acetaminoph 2019-08 [id number] 650mg Take 2 [facility] en 325 mg 0-08 09-16 tablets by ity of tablet 00:00: 00:00 mouth [place] 00 :00 every 6 Medical (six) Branch hours as needed for Pain (scale 1-3). acetaminoph 2019-08 No [id number] 650mg Take 2 [facility] en 325 mg 0-08 10-08 tablets by ity of tablet 00:00: 00:00 mouth [place] 00 :00 every 6 Medical (six) Branch hours as needed for Pain (scale 1-3). ibuprofen 2019-08 [id number] 800mg Take 1 [facility] 800 mg 0-08 10-08 tablet by ity of tablet 00:00: 00:00 mouth [place] 00 :00 every 6 Medical (six) Branch hours as needed for Pain (scale 4-6). loperamide 2019-08 No [id number] 4mg Take 2 [facility] 2 mg 0-08 10-08 capsules ity of capsule 00:00: 00:00 by mouth 4 [place] 00 :00 (four) Medical times Branch daily. diphenoxyla 2020- 2020- No [id number] 1{tbl} Take 1 [facility] te-atropine 0-08 10-08 tablet by it y of 2.5-0.025 00:00: 00:00 mouth [place] mg tablet 00 :00 every 8 Medical (eight) Branch hours. psyllium 2019- 2020- No [id number] 3{packe Take 3 [facility] 3.4 gram 0-08 10-08 t} Packets by ity of packet 00:00: 00:00 mouth 3 [place] 00 :00 (three) Medical times Branch daily. iohexoL 2019-2019- No 50mL 50 mL, [facility] (OMNIPAQUE 0-07 10-07 Injection, it y of 300-50 mL)) 19:00: 18:59 ONCE, 1 [place] injection 00 :00 dose, Wed Medic al 50 mL 05/30/20 at Branch 1400, Routine diphenoxyla 2019-08 Yes 1{tbl} 1 tablet, [facility] te-atropine 0-06 Oral, Q8H, it y of (LOMOTIL) 14:00: First dose [place] 2.5-0.025 00 on Thu Medical mg tablet 1 05/29/20 at Br anch tablet 0900, Until Discontinu ed, Routine psyllium 2019- Yes 3{packe 3 Packet, U nivers (METAMUCIL 0-06 t} Oral, TID, ity of FIBER 13:00: First dose [place] SINGLES) 00 (after Medical 3.4 gram last Branch packet 3 modificati Packet on) on Thu05/29/20 at 0800, Until Discontinu ed, Routine magnesium 2019- 2020- No 4g 4 g, IV Univ ers sulfate in 0-06 10-06 Piggyback, it y of water 4 12:30: 14:29 ONCE, 1 [place] gram/50 mL 00 :00 dose, Tue Medi mariusz (8 %) IV 05/29/20 at Branc h Piggyback 4 0730, g Routine magnesium 2019- 2020- No 2g 2 g, IV Univ ers sulfate in 0-05 10-05 Piggyback, it y of water 2 13:30: 13:20 ONCE, 1 [place] gram/50 mL 00 :00 dose, Mon Medi mariusz (4 %) 05/28/20 at Branch infusion 2 0830, g Routine loperamide 2019- Yes 4mg 4 mg, Univer s (IMODIUM 0-05 Oral, QID, ity o f A-D) 13:00: First dose [place] capsule 4 00 (after Medical mg last Branch modificati on) on 05/28/20 at 0800, Until Discontinu ed, Routine psyllium 2019- 2020- No 1{packe 1 Packet, Univers (METAMUCIL 0-05 10-06 t} Oral, BID, it y of FIBER 01:00: 12:18 First dose [place] SINGLES) 00 :14 on Sun Medical 3.4 gram 05/27/20 at [facility] h packet 1 1999, Packet Until Discontinu ed, Routine loperamide 2019-08- No 4mg 4 mg, Unive rs (IMODIUM 0-04 10-05 Oral, TID, ity of A-D) 19:00: 12:56 First dose [place] capsule 4 00 :31 (after Medical mg last Branch modificati on) on [place] 05/27/20 at 1400, Until Discontinu ed, Routine magnesium 2019-08- No 2g 2 g, IV Univ ers sulfate in 0-04 10-04 Piggyback, it y of water 2 13:00: 12:28 ONCE, 1 [place] gram/50 mL 00 :00 dose, Sun Medi mariusz (4 %) 05/27/20 at Branch infusion 2 0800, g Routine lactated 2019-08 Yes 1000mL at 999 Unive rs ringers IV 0-03 mL/hr, ity of infusion 11:39: 1,000 mL, [place] 1,000 mL 37 Intravenou Medic al s, PRN - Branch SEE INSTRUCTIO NS, Starting 05/26/20 at 0639, Until Discontinu ed, Routine loperamide 2019-08 2020- No 4mg 4 mg, Unive rs (IMODIUM 0-03 10-04 Oral, BID, ity of A-D) 01:00: 14:08 First dose [place] capsule 4 00 :08 (after Medical mg last Branch modificati on) on Thu05/25/20 at 2000, Until Discontinu ed, Routine lactated 2020-1 2020- No 1000mL at 999 Univ ers ringers IV 002 10-03 mL/hr, ity of infusion 20:08: 01:57 1,000 mL, [place] 1,000 mL 00 :00 Intravenou Medic al s, ONCE, 1 Branch dose, 05/25/20 at 1515, Routine magnesium 2019-08 No 4g 4 g, IV Univ ers sulfate in 005-24 Piggyback, it y of water 4 22:15: 22:07 ONCE, 1 [place] gram/50 mL 00 :00 dose, [place] Medi mariusz (8 %) IV 05/24/20 at [facility] h Piggyback 4 1715, g Routine iohexoL 2019-08- No 50mL 50 mL, Univers (OMNIPAQUE 005-24 Injection, it y of 300-50 mL)) 17:45: 17:37 ONCE, 1 [place] injection 00 :00 dose, [place] Medic al 50 mL 05/24/20 at Branch 1245, Routine FENTanyl PF 2019-08 No Slow IV Un piyush (SUBLIMAZE 005-24 Push, PRN, it y of (PF)) 17:00: 17:26 Starting [place] injection 30 :44 [place] Medical 05/24/20 at Branch 1200, Until Discontinu ed, Routine midazolam 2019-08 No IV Push, Uni vers (VERSED) 005-24 PRN, ity of injection 17:00: 17:00 Starting [place] 16 :16 [place] [facility] 05/24/20 at Branch 1200, Until Discontinu ed, Routine FENTanyl PF 2019-08 No Slow IV Un pi[place]ush (SUBLIMAZE 005-24 Push, PRN, it y of (PF)) 16:01: 16:01 Starting [place] injection 03 :[address] [facility] Medical 05/24/20 at Branch 1101, Until Discontinu ed, Routine loperamide 2019-08- No 2mg 2 mg, Unive rs (IMODIUM 005-25 Oral, BID, ity of A-D) 13:00: 12:33 First dose [place] capsule 2 00 :17 on [place] Medical mg 05/24/20 at Branch 0800, Until Discontinu ed, Routine iohexol 2019- No 100mL 100 mL, Unive rs (OMNIPAQUE 05-23 Intravenou it y of 350 14:54: 14:54 s, ONCE, 1 [place] BULK-100 00 :00 dose, Thu Medica l mL) 05/23/20 at Branch injection 1015, 100 mL Routine docusate 2019-0 2020- No 100mg 100 mg, Univ ers (COLACE) 05-23 10-02 Oral, ity of capsule 100 14:00: 17:31 DAILY, [place] mg 00 :24 First dose Medical on Thu Branch 05/23/20 at 0900, Until Discontinu ed, Routine levoFLOXaci 2019-0 2020- No 750mg 750 mg, U nivers n 05-23 10-07 Oral, Q24H ity of (LEVAQUIN) 04:30: 18:00 ABX, First [place] tablet 750 00 :16 dose on Medica l mg [facility] Branch 05/22/20 at 2330, Until Discontinu ed, JOÃO
Re ason for Anti-Infec tive: Documented Infection< br>Documen dain Infection Site: Abdominal< br>Duratio n of Therapy: 7 days ondansetron 2019-0 Yes 4mg 4 mg, Slow [facility] (ZOFRAN 9-30 IV Push, ity of (PF)) 03:15: Administer [place] injection 4 50 over 15 Medic al mg Minutes, Branch Q8HPRN, Starting Thu05/22/20 at 2215, Until Discontinu ed, Routine, Nausea and Vomiting (N/V) D5W 0.45% 2019-0 Yes IV [facility] NaCl 9-30 Infusion, ity of (1/2NS) 1 L 03:15: at 50 [place] + KCL 20 00 mL/hr, Medical mEq CONTINUOUS Branch , Starting Thu05/22/20 at 2230, Until Discontinu ed, Routine ibuprofen 2019-0 Yes 800mg 800 mg, Univ ers (IBU) 05-23 Oral, ity of tablet 800 03:13: Q6HPRN, [place] mg 38 Starting Medical e Branch 05/22/20 at 2213, Until Discontinu ed, Routine, Pain (scale 4-6) acetaminoph 2019-0 Yes 650mg 650 mg, Un piyush en 05-23 Oral, ity of (TYLENOL) 03:13: Q6HPRN, [place] tablet 650 36 Starting Medic al mg Tue [place] 05/22/20 at 2213, Until Discontinu ed, Routine, Pain (scale 1-3) morpHINE 2019-0 2020- No 4mg 4 mg, Slow Un pi[place] injection 4 05-22 IV Push, ity of mg 03:30: 03:13 ONCE, 1 [place] 00 :00 dose, Mon Medical 05/21/20 at Branch 2230, STAT piperacilli 2019-0 2020- No 3.375g 3.375 g, Univers n-tazobacta 05-20 IV ity of m (ZOSYN) 10:15: 22:14 Piggyback, [place] 3.375 g in 00 :00 ONCE, 1 Medica l NaCl 0.9% dose, Sun Branc h (NS) 100 mL 05/20/20 at MINI-BAG 0515, 100 mL
Reas on for Anti-Infec tive: Documented Infection< br>Documen dain Infection Site: Abdominal< br>Duratio n of Therapy: 7 days iohexol 2019-0 2020- No 100mL 100 mL, Unive rs (OMNIPAQUE 05-20 Intravenou it y of 350 04:02: 04:02 s, ONCE, 1 [place] BULK-100 00 :00 dose, Sat Medica l mL) 05/19/20 at Branch injection 2315, 100 mL Routine ondansetron 2019-0 2019- No 4mg 4 mg, Slow Univers (ZOFRAN 05-20 IV Push, ity of (PF)) 03:45: 03:36 ONCE, 1 [place] injection 4 00 :00 dose, Sat Med ical mg 05/19/20 at Branch 2245, JOÃO morpHINE 2019-0 2019- No 4mg 4 mg, Slow Un piyush injection 4 05-20 IV Push, ity of mg 03:45: 03:36 ONCE, 1 [place] 00 :00 dose, Sat Medical 05/19/20 at Branch 2245, STAT NaCl 0.9% 2019-0 2020- No 1000mL at 999 Uni vers (NS) bolus 05-20 mL/hr, ity of infusion 03:45: 11:13 1,000 mL, [place] 1,000 mL 00 :00 IV Medical Piggyback, [place] ONCE, 1 dose, 05/19/20 at 2245, STAT ibuprofen 2020-0 Yes [id number] 800mg Take 1 U nivers 800 mg 9-18 tablet by ity of tablet 00:00: mouth [place] 00 every 6 Medical (six) Branch hours as needed for Pain (scale 4-6). levoFLOXaci 2020-0 Yes [id number] 750mg Take 1 [facility] n 750 mg 9-18 tablet by ity of tablet 00:00: mouth [place] 00 every 24 Medical (twenty-fo Branch ur) hours. loperamide 2020-0 Yes [id number] 2mg Take 1 U nivers 2 mg 9-18 capsule by ity of capsule 00:00: mouth [place] 00 daily. Medical Branch ibuprofen 2020-0 Yes [id number] 800mg Take 1 U nivers 800 mg 9-18 tablet by ity of tablet 00:00: mouth [place] 00 every 6 Medical (six) Branch hours as needed for Pain (scale 4-6). levoFLOXaci 2020-0 Yes [id number] 750mg Take 1 [facility] n 750 mg 9-18 tablet by ity of tablet 00:00: mouth [place] 00 every 24 Medical (twenty-fo Branch ur) hours. loperamide 2020-0 Yes [id number] 2mg Take 1 U nivers 2 mg 9-18 capsule by ity of capsule 00:00: mouth [place] 00 daily. Medical Branch ibuprofen 2020-0 Yes [id number] 800mg Take 1 U nivers 800 mg 9-18 tablet by ity of tablet 00:00: mouth [place] 00 every 6 Medical (six) Branch hours as needed for Pain (scale 4-6). levoFLOXaci 2020-0 Yes [id number] 750mg Take 1 Univers n 750 mg 9-18 tablet by ity of tablet 00:00: mouth [place] 00 every 24 Medical (twenty-fo Branch ur) hours. loperamide 2020-0 Yes [id number] 2mg Take 1 U nivers 2 mg 9-18 capsule by ity of capsule 00:00: mouth [place] 00 daily. Medical Branch ibuprofen 2020-0 Yes [id number] 800mg Take 1 U nivers 800 mg 9-18 tablet by ity of tablet 00:00: mouth [place] 00 every 6 Medical (six) Branch hours as needed for Pain (scale 4-6). levoFLOXaci 2020-0 Yes [id number] 750mg Take 1 [facility] n 750 mg 9-18 tablet by ity of tablet 00:00: mouth [place] 00 every 24 Medical (twenty-fo Branch ur) hours. loperamide 2020-0 Yes [id number] 2mg Take 1 U nivers 2 mg 9-18 capsule by ity of capsule 00:00: mouth [place] 00 daily. Medical Branch ibuprofen 2020-0 Yes [id number] 800mg Take 1 U nivers 800 mg 9-18 tablet by ity of tablet 00:00: mouth [place] 00 every 6 Medical (six) Branch hours as needed for Pain (scale 4-6). levoFLOXaci 2020-0 Yes [id number] 750mg Take 1 [facility] n 750 mg 9-18 tablet by ity of tablet 00:00: mouth [place] 00 every 24 Medical (twenty-fo Branch ur) hours. loperamide 2020-0 Yes [id number] 2mg Take 1 U nivers 2 mg 9-18 capsule by ity of capsule 00:00: mouth [place] 00 daily. Medical Branch ibuprofen 2020-0 Yes [id number] 800mg Take 1 U nivers 800 mg 9-18 tablet by ity of tablet 00:00: mouth [place] 00 every 6 Medical (six) Branch hours as needed for Pain (scale 4-6). levoFLOXaci 2020-0 Yes [id number] 750mg Take 1 [facility] n 750 mg 9-18 tablet by ity of tablet 00:00: mouth [place] 00 every 24 Medical (twenty-fo Branch ur) hours. loperamide 2020-0 Yes [id number] 2mg Take 1 U nivers 2 mg 9-18 capsule by ity of capsule 00:00: mouth [place] 00 daily. Medical Branch ibuprofen 2020-0 Yes [id number] 800mg Take 1 U nivers 800 mg 9-18 tablet by ity of tablet 00:00: mouth [place] 00 every 6 Medical (six) Branch hours as needed for Pain (scale 4-6). levoFLOXaci 2020-0 Yes [id number] 750mg Take 1 [facility] n 750 mg 9-18 tablet by ity of tablet 00:00: mouth [place] 00 every 24 Medical (twenty-fo Branch ur) hours. loperamide 2020-0 Yes [id number] 2mg Take 1 U nivers 2 mg 9-18 capsule by ity of capsule 00:00: mouth [place] 00 daily. Medical Branch ibuprofen 2020-0 Yes [id number] 800mg Take 1 U nivers 800 mg 9-18 tablet by ity of tablet 00:00: mouth [place] 00 every 6 Medical (six) Branch hours as needed for Pain (scale 4-6). levoFLOXaci 2020-0 Yes [id number] 750mg Take 1 [facility] n 750 mg 9-18 tablet by ity of tablet 00:00: mouth [place] 00 every 24 Medical (twenty-fo Branch ur) hours. loperamide 2020-0 Yes [id number] 2mg Take 1 U nivers 2 mg 9-18 capsule by ity of capsule 00:00: mouth [place] 00 daily. Medical Branch ibuprofen 2020-0 Yes [id number] 800mg Take 1 U nivers 800 mg 9-18 tablet by ity of tablet 00:00: mouth [place] 00 every 6 Medical (six) Branch hours as needed for Pain (scale 4-6). levoFLOXaci 2020-0 Yes [id number] 750mg Take 1 [facility] n 750 mg 9-18 tablet by ity of tablet 00:00: mouth [place] 00 every 24 Medical (twenty-fo Branch ur) hours. loperamide 2020-0 Yes [id number] 2mg Take 1 U nivers 2 mg 9-18 capsule by ity of capsule 00:00: mouth [place] 00 daily. Medical Branch ibuprofen 2020-0 Yes [id number] 800mg Take 1 U nivers 800 mg 9-18 tablet by ity of tablet 00:00: mouth [place] 00 every 6 Medical (six) Branch hours as needed for Pain (scale 4-6). levoFLOXaci 2020-0 Yes [id number] 750mg Take 1 [facility] n 750 mg 9-18 tablet by ity of tablet 00:00: mouth [place] 00 every 24 Medical (twenty-fo Branch ur) hours. loperamide 2020-0 Yes [id number] 2mg Take 1 U nivers 2 mg 9-18 capsule by ity of capsule 00:00: mouth [place] 00 daily. Medical Branch ibuprofen 2020-0 Yes [id number] 800mg Take 1 U nivers 800 mg 9-18 tablet by ity of tablet 00:00: mouth [place] 00 every 6 Medical (six) Branch hours as needed for Pain (scale 4-6). levoFLOXaci 2020-0 Yes [id number] 750mg Take 1 [facility] n 750 mg 9-18 tablet by ity of tablet 00:00: mouth [place] 00 every 24 Medical (twenty-fo Branch ur) hours. loperamide 2020-0 Yes [id number] 2mg Take 1 U nivers 2 mg 9-18 capsule by ity of capsule 00:00: mouth [place] 00 daily. Medical Branch ibuprofen 2020-0 Yes [id number] 800mg Take 1 U nivers 800 mg 9-18 tablet by ity of tablet 00:00: mouth [place] 00 every 6 Medical (six) Branch hours as needed for Pain (scale 4-6). levoFLOXaci 2020-0 Yes [id number] 750mg Take 1 [facility] n 750 mg 9-18 tablet by ity of tablet 00:00: mouth [place] 00 every 24 Medical (twenty-fo Branch ur) hours. loperamide 2020-0 Yes [id number] 2mg Take 1 U nivers 2 mg 9-18 capsule by ity of capsule 00:00: mouth [place] 00 daily. Medical Branch ibuprofen 2020-0 Yes [id number] 800mg Take 1 U nivers 800 mg 9-18 tablet by ity of tablet 00:00: mouth [place] 00 every 6 Medical (six) Branch hours as needed for Pain (scale 4-6). levoFLOXaci 2020-0 Yes [id number] 750mg Take 1 [facility] n 750 mg 9-18 tablet by ity of tablet 00:00: mouth [place] 00 every 24 Medical (twenty-fo Branch ur) hours. loperamide 2020-0 Yes [id number] 2mg Take 1 U nivers 2 mg 9-18 capsule by ity of capsule 00:00: mouth [place] 00 daily. Medical Branch acetaminoph 2019-0 2020- No [id number] 650mg Take 2 [facility] en 325 mg 9-18 09-19 tablets by ity of tablet 00:00: 04:59 mouth [place] 00 :00 every 6 Medical (six) Branch hours as needed for Pain (scale 1-3). acetaminoph 2020-0 2020- No [id number] 650mg Take 2 [facility] en 325 mg 9-18 09-19 tablets by ity of tablet 00:00: 04:59 mouth [place] 00 :00 every 6 Medical (six) Branch hours as needed for Pain (scale 1-3). acetaminoph 2020-0 2020- No [id number] 650mg Take 2 [facility] en 325 mg 9-18 09-19 tablets by ity of tablet 00:00: 04:59 mouth [place] 00 :00 every 6 Medical (six) Branch hours as needed for Pain (scale 1-3). acetaminoph No [id number] 650mg Take 2 [facility] en 325 mg 9-18 09-19 tablets by ity of tablet 00:00: 04:59 mouth [place] 00 :00 every 6 Medical (six) Branch hours as needed for Pain (scale 1-3). acetaminoph No [id number] 650mg Take 2 [facility] en 325 mg 9-18 09-19 tablets by ity of tablet 00:00: 04:59 mouth [place] 00 :00 every 6 Medical (six) Branch hours as needed for Pain (scale 1-3). acetaminoph No [id number] 650mg Take 2 [facility] en 325 mg 9-18 09-19 tablets by ity of tablet 00:00: 04:59 mouth [place] 00 :00 every 6 Medical (six) Branch hours as needed for Pain (scale 1-3). acetaminoph No [id number] 650mg Take 2 [facility] en 325 mg 9-18 09-19 tablets by ity of tablet 00:00: 04:59 mouth [place] 00 :00 every 6 Medical (six) Branch hours as needed for Pain (scale 1-3). acetaminoph No [id number] 650mg Take 2 [facility] en 325 mg 9-18 09-19 tablets by ity of tablet 00:00: 04:59 mouth [place] 00 :00 every 6 Medical (six) Branch hours as needed for Pain (scale 1-3). acetaminoph No [id number] 650mg Take 2 [facility] en 325 mg 9-18 09-19 tablets by ity of tablet 00:00: 04:59 mouth [place] 00 :00 every 6 Medical (six) Branch hours as needed for Pain (scale 1-3). acetaminoph No [id number] 650mg Take 2 [facility] en 325 mg 9-18 09-19 tablets by ity of tablet 00:00: 04:59 mouth [place] 00 :00 every 6 Medical (six) Branch hours as needed for Pain (scale 1-3). acetaminoph No [id number] 650mg Take 2 [facility] en 325 mg 9-18 09-19 tablets by ity of tablet 00:00: 04:59 mouth [place] 00 :00 every 6 Medical (six) Branch hours as needed for Pain (scale 1-3). acetaminoph 2019-2020- No [id number] 650mg Take 2 [facility] en 325 mg 9-18 09-19 tablets by ity of tablet 00:00: 04:59 mouth [place] 00 :00 every 6 Medical (six) Branch hours as needed for Pain (scale 1-3). acetaminoph 2019- No [id number] 650mg Take 2 [facility] en 325 mg 9-18 09-19 tablets by ity of tablet 00:00: 04:59 mouth [place] 00 :00 every 6 Medical (six) Branch hours as needed for Pain (scale 1-3). acetaminoph 2019- No [id number] 650mg Take 2 [facility] en 325 mg 9-18 10-08 tablets by ity of tablet 00:00: 00:00 mouth [place] 00 :00 every 6 Medical (six) Branch hours as needed for Pain (scale 1-3). ibuprofen No [id number] 800mg Take 1 [facility] 800 mg 9-18 10-08 tablet by ity of tablet 00:00: 00:00 mouth [place] 00 :00 every 6 Medical (six) Branch hours as needed for Pain (scale 4-6). levoFLOXaci 2019-2019- No [id number] 750mg Take 1 Univers n 750 mg 9-18 10-08 tablet by ity o f tablet 00:00: 00:00 mouth [place] 00 :00 every 24 Medical (twenty-fo Branch ur) hours. loperamide 2019- No [id number] 2mg Take 1 [facility] 2 mg 9-18 10-08 capsule by ity of capsule 00:00: 00:00 mouth [place] 00 :00 daily. Medical Branch HYDROcodone 2019- No [id number] 1{tbl} Take 1 U nivers -acetaminop 9-18 09-26 tablet by it y of hen 5-325 00:00: 04:59 mouth [place] mg tablet 00 :00 every 6 Medical (six) Branch hours as needed for Pain (scale 4-6) for up to 7 days. Indication s: acute pain HYDROcodone 2019-2019- No [id number] 1{tbl} Take 1 U nivers -acetaminop 9-18 09-26 tablet by it y of hen 5-325 00:00: 04:59 mouth [place] mg tablet 00 :00 every 6 Medical (six) Branch hours as needed for Pain (scale 4-6) for up to 7 days. Indication s: acute pain HYDROcodone 2019-2019- No [id number] 1{tbl} Take 1 U nivers -acetaminop -05-19 tablet by it y of hen 5-325 00:00: 04:59 mouth [place] mg tablet 00 :00 every 6 Medical (six) Branch hours as needed for Pain (scale 4-6) for up to 7 days. Indication s: acute pain HYDROcodone 2019-2019- No [id number] 1{tbl} Take 1 U nivers -acetaminop -05-19 tablet by it y of hen 5-325 00:00: 04:59 mouth [place] mg tablet 00 :00 every 6 Medical (six) Branch hours as needed for Pain (scale 4-6) for up to 7 days. Indication s: acute pain HYDROcodone 2019-2019- No [id number] 1{tbl} Take 1 U nivers -acetaminop -05-19 tablet by it y of hen 5-325 00:00: 04:59 mouth [place] mg tablet 00 :00 every 6 Medical (six) Branch hours as needed for Pain (scale 4-6) for up to 7 days. Indication s: acute pain HYDROcodone 2019-2019- No 4647 1{tbl} Take 1 U nivers -acetaminop 05-11 tablet by it y of hen 5-325 00:00: 04:59 mouth [place] mg tablet 00 :00 every 6 Medical (six) Branch hours as needed for Pain (scale 4-6) for up to 7 days. Indication s: acute pain levoFLOXaci Yes 750mg 750 mg, Un piyush n -17 Oral, Q24H ity of (LEVAQUIN) 00:00: ABX, First [place] tablet 750 00 dose on Medica l mg Wed Branch 05/09/20 at 1900, Until Discontinu ed, JOÃO
Re ason for Anti-Infec tive: Documented Infection< br>Documen dain Infection Site: Abdominal< br>Duratio n of Therapy: 14 days metroNIDAZO 2019- No 500mg 500 mg, U nivers LE (FLAGYL) 05-09 Oral, Q8H it y of tablet 500 21:30: 13:14 ABX, First [place] mg 00 :28 dose on Medical Wed Branch 05/09/20 at 1630, Until Discontinu ed, Routine
Reason for Anti-Infec tive: Documented Infection< br>Documen dain Infection Site: Abdominal< br>Duratio n of Therapy: 14 days magnesium 2020-0 2020- No 4g 4 g, IV Univ ers sulfate in 05-08 Piggyback, it y of water 4 12:30: 12:54 ONCE, 1 [place] gram/50 mL 00 :00 dose, Tue Medi mariusz (8 %) IV 05/08/20 at Branc h Piggyback 4 0730, g Routine loperamide 2019-0 Yes 2mg 2 mg, Univer s (IMODIUM 05-08 Oral, Q4H, ity o f A-D) 01:00: First dose [place] capsule 2 00 on Mon Medical mg 05/07/20 at Branch 2000, Until Discontinu ed, Routine lactated 2020-0 2020- No 1000mL at 999 Univ ers ringers IV 05-07 mL/hr, ity of infusion 22:15: 22:21 1,000 mL, [place] 1,000 mL 00 :00 Intravenou Medic al s, ONCE, 1 Branch dose, [facility] 05/07/20 at 1715, Routine lactated 2020-0 2020- No 1000mL at 999 Univ ers ringers IV 05-07 mL/hr, ity of infusion 13:15: 14:09 1,000 mL, [place] 1,000 mL 00 :00 Intravenou Medic al s, ONCE, 1 Branch dose, [facility] 05/07/20 at 0815, Routine HYDROcodone 2020-0 Yes 1{tbl} 1 tablet, Univers -acetaminop 05-07 Oral, ity of hen (NORCO 13:00: Q6HPRN, [place] 5) 5-325 mg 00 Starting Medi mariusz tablet 1 Mon Branch tablet 05/07/20 at 0800, Until Discontinu ed, Routine, Pain (scale 4-6) magnesium 2020-0 2020- No 2g 2 g, IV Univ ers sulfate in 05-07 Piggyback, it y of water 2 13:00: 15:10 ONCE, 1 [place] gram/50 mL 00 :00 dose, Mon Medi mariusz (4 %) 05/07/20 at Branch infusion 2 0800, g Routine ibuprofen 2019- Yes 800mg 800 mg, Univ ers (IBU) 05-07 Oral, ity of tablet 800 12:45: Q6HPRN, [place] mg 22 Starting Medical [facility] 05/07/20 at 0745, Until Discontinu ed, Routine, Pain (scale 4-6) FENTanyl PF 2019-2019- No Slow IV Un piyush (SUBLIMAZE 05-05 Push, PRN, it y of (PF)) 18:53: 20:05 Starting [place] injection 39 :03 Sat Medical 05/05/20 at Branch 1353, Until Discontinu ed, Routine lidocaine 2019- 2020- No PRN, Univers 1% (PF) 05-05 Starting ity of (XYLOCAINE) 18:26: 18:26 Sat [place] injection 34 :34 05/05/20 at [facility] 1326, Branch Until Discontinu ed, Routine NaCl 0.9% 2019-2019- No CONTINUOUS U nivers (NS) bolus 05-05 PRN, ity of infusion 18:15: 18:15 [place] 06 :06 [facility] 05/05/20 at Branch 1315, Until Discontinu ed, STAT D5W 0.45% 2019-2019- No IV Univers NaCl 05-05 Infusion, ity of (1/2NS) 1 L 09:30: 14:01 at 100 [place] + KCL 20 00 :57 mL/hr, Medical mEq CONTINUOUS Branch , Starting 05/05/20 at 0430, Until 05/06/20 at 0901, Routine metroNIDAZO 2019- 2020- No 500mg 500 mg, IV Univers LE in NaCl 05-05 Infusion, ity of (iso-os) 07:30: 16:36 Q8H ABX, [place] (FLAGYL 00 :33 First dose Medica l I.V.) RTU on [facility] IV infusion 05/05/20 at 500 mg 0230, Until Discontinu ed, 100 mL
Reas on for Anti-Infec tive: Empiric Therapy for Suspected Infection< br>Empiric Therapy Site: Skin / Soft tissue
Duration of therapy: 7 days levoFLOXaci 2019-0 2020- No 750mg 750 mg, IV Univers n in D5W 05-05 Piggyback, ity of (LEVAQUIN) 07:30: 16:36 Administer [place] 750 mg/150 00 :33 over 90 Medica l mL Minutes, Branch Piggyback Q24H ABX, 750 mg First dose on 05/05/20 at 0230, Until Discontinu ed, JOÃO
Re ason for Anti-Infec tive: Documented Infection< br>Documen dain Infection Site: Abdominal< br>Duratio n of Therapy: 7 days morpHINE 2019- 2020- No 2mg 2 mg, Slow Un piyush injection 2 05-05 IV Push, ity of mg 06:15: 06:14 Q4HPRN, [place] 31 :31 Starting Medical Sat Branch 05/05/20 at 0115, Until 05/07/20 at 0114, Routine, Pain (scale 7-10) HYDROcodone 2019- 2020- No 1{tbl} 1 tablet, Univers -acetaminop 05-05 Oral, ity of hen (NORCO 06:15: 12:45 Q4HPRN, [place] 5) 5-325 mg 28 :43 Starting Medi mariusz tablet 1 Sat [place] tablet 05/05/20 at 0115, Until 05/07/20 at 0745, Routine, Pain (scale 4-6) acetaminoph Yes 650mg 650 mg, Un piyush en 05-05 Oral, ity of (TYLENOL) 06:15: Q6HPRN, [place] tablet 650 23 Starting Medic al mg Sat Branch 05/05/20 at 0115, Until Discontinu ed, Routine, Pain (scale 1-3) NaCl 0.9% 2019-0 2020- No 1000mL at 999 Uni vers (NS) bolus 05-05 mL/hr, ity of infusion 06:15: 07:34 1,000 mL, [place] 1,000 mL 00 :00 IV Medical Infusion, Branch ONCE, 1 dose, 05/05/20 at 0115, STAT NaCl 0.9% 2020-0 2020- No 1000mL at 999 Uni vers (NS) bolus 05-05 mL/hr, ity of infusion 06:15: 07:34 1,000 mL, [place] 1,000 mL 00 :00 IV Medical Infusion, Branch ONCE, 1 dose, 05/05/20 at 0115, STAT iohexol 2019-0 2020- No 120mL 120 mL, Unive rs (OMNIPAQUE 05-05 Intravenou it y of 350 04:00: 03:48 s, ONCE, 1 [place] BULK-150 00 :00 dose, Fri Medica l mL) 05/04/20 at Branch injection 2300, 120 mL Routine NaCl 0.9% 2019-0 2020- No 1000mL at 999 Uni vers (NS) bolus 05-05 mL/hr, ity of infusion 03:30: 05:46 1,000 mL, [place] 1,000 mL 00 :00 IV Medical Infusion, Branch ONCE, 1 dose, 05/04/20 at 2230, STAT FENTanyl PF 2019- No 50ug 50 mcg, Un piyush (SUBLIMAZE 05-05 Slow IV ity o f (PF)) 03:15: 03:19 Push, [place] injection 00 :00 ONCE, 1 Medical 50 mcg dose, Fri Branch 05/04/20 at 2215, Routine ondansetron 0 2019- No 4mg 4 mg, Slow Univers (ZOFRAN 05-05 IV Push, ity of (PF)) 03:15: 03:18 ONCE, 1 [place] injection 4 00 :00 dose, Fri Med ical mg 05/04/20 at Branch 2215, JOÃO ketorolac 2019-0 2020- No 60mg 60 mg, Unive rs (TORADOL) 05-03 Intramuscu ity of injection 05:00: 05:14 lar, ONCE, [place] 60 mg 00 :00 1 dose, Medical [place] Branch 05/03/20 at 0015, JOÃO
Fa culty member approving Restricted medication : JOEL BAEZ traMADoL 2020-0 Yes [id number] 50mg Take 1 Univers (ULTRAM) 50 9-10 tablet by ity of mg tablet 00:00: mouth [place] 00 every 6 Medical (six) Branch hours as needed for Pain (scale 7-10). Indication s: acute pain traMADoL 2020-0 Yes [id number] 50mg Take 1 Univers (ULTRAM) 50 9-10 tablet by ity of mg tablet 00:00: mouth [place] 00 every 6 Medical (six) Branch hours as needed for Pain (scale 7-10). Indication s: acute pain traMADoL 2020-0 Yes [id number] 50mg Take 1 Univers (ULTRAM) 50 9-10 tablet by ity of mg tablet 00:00: mouth [place] 00 every 6 Medical (six) Branch hours as needed for Pain (scale 7-10). Indication s: acute pain traMADoL 2020-0 Yes [id number] 50mg Take 1 Univers (ULTRAM) 50 9-10 tablet by ity of mg tablet 00:00: mouth [place] 00 every 6 Medical (six) Branch hours as needed for Pain (scale 7-10). Indication s: acute pain traMADoL 2020-0 Yes 4647 50mg Take 1 Univers (ULTRAM) 50 9-10 tablet by ity of mg tablet 00:00: mouth [place] 00 every 6 Medical (six) Branch hours as needed for Pain (scale 7-10). Indication s: acute pain traMADoL 2020-0 Yes 4647 50mg Take 1 Univers (ULTRAM) 50 9-10 tablet by ity of mg tablet 00:00: mouth [place] 00 every 6 Medical (six) Branch hours as needed for Pain (scale 7-10). Indication s: acute pain traMADoL 2020-0 2020- No 4647 50mg Take 1 Univer s (ULTRAM) 50 9-10 09-18 tablet by it y of mg tablet 00:00: 00:00 mouth [place] 00 :00 every 6 Medical (six) Branch hours as needed for Pain (scale 7-10). Indication s: acute pain ibuprofen 2020-0 Yes [id number] 400mg Take 2 [facility] 200 mg 9-08 tablets by ity of tablet 00:00: mouth [place] 00 every 6 Medical (six) Branch hours as needed for Pain (scale 1-3). ibuprofen 2020-0 Yes [id number] 400mg Take 2 Univers 200 mg 9-08 tablets by ity of tablet 00:00: mouth [place] 00 every 6 Medical (six) Branch hours as needed for Pain (scale 1-3). ibuprofen 2020-0 Yes [id number] 400mg Take 2 [facility] 200 mg 9-08 tablets by ity of tablet 00:00: mouth [place] 00 every 6 Medical (six) Branch hours as needed for Pain (scale 1-3). ibuprofen 2020-0 Yes [id number] 400mg Take 2 [facility] 200 mg 9-08 tablets by ity of tablet 00:00: mouth [place] 00 every 6 Medical (six) Branch hours as needed for Pain (scale 1-3). ibuprofen 2020-0 Yes [id number] 400mg Take 2 [facility] 200 mg 9-08 tablets by ity of tablet 00:00: mouth [place] 00 every 6 Medical (six) Branch hours as needed for Pain (scale 1-3). ibuprofen 2020-0 Yes [id number] 400mg Take 2 [facility] 200 mg 9-08 tablets by ity of tablet 00:00: mouth [place] 00 every 6 Medical (six) Branch hours as needed for Pain (scale 1-3). ibuprofen 2020-0 Yes [id number] 400mg Take 2 [facility] 200 mg 9-08 tablets by ity of tablet 00:00: mouth [place] 00 every 6 Medical (six) Branch hours as needed for Pain (scale 1-3). acetaminoph 2020- No [id number] 650mg Take 2 Univers en - 09-09 tablets by ity of (TYLENOL) 00:00: 04:59 mouth [place] 325 mg 00 :00 every 6 Medical tablet (six) Branch hours as needed for Pain (scale 4-6). acetaminoph 2019-2020- No [id number] 650mg Take 2 Univers en 9- 09-09 tablets by ity of (TYLENOL) 00:00: 04:59 mouth [place] 325 mg 00 :00 every 6 Medical tablet (six) Branch hours as needed for Pain (scale 4-6). acetaminoph 2019-2020- No [id number] 650mg Take 2 Univers en -08 09-09 tablets by ity of (TYLENOL) 00:00: 04:59 mouth [place] 325 mg 00 :00 every 6 Medical tablet (six) Branch hours as needed for Pain (scale 4-6). acetaminoph 2020-2020- No [id number] 650mg Take 2 Univers en 9-08 09-09 tablets by ity of (TYLENOL) 00:00: 04:59 mouth [place] 325 mg 00 :00 every 6 Medical tablet (six) Branch hours as needed for Pain (scale 4-6). acetaminoph 2020- No [id number] 650mg Take 2 Univers en 9-08 09-09 tablets by ity of (TYLENOL) 00:00: 04:59 mouth [place] 325 mg 00 :00 every 6 Medical tablet (six) Branch hours as needed for Pain (scale 4-6). acetaminoph 2019-2020- No [id number] 650mg Take 2 Univers en 05-01 tablets by ity of (TYLENOL) 00:00: 04:59 mouth [place] 325 mg 00 :00 every 6 Medical tablet (six) Branch hours as needed for Pain (scale 4-6). acetaminoph 2019-2020- No [id number] 650mg Take 2 Univers en 05-01 tablets by ity of (TYLENOL) 00:00: 04:59 mouth [place] 325 mg 00 :00 every 6 Medical tablet (six) Branch hours as needed for Pain (scale 4-6). ciprofloxac No [id number] 750mg Take 1 Univers in HCl 750 05-01 tablet by ity of mg tablet 00:00: 04:59 mouth [place] 00 :00 every 12 Medical (twelve) Branch hours for 14 days. amoxicillin No [id number] 1{tbl} Take 1 Univers -clavulanat 05-01 tablet by it y of e 00:00: 04:59 mouth 2 [place] (AUGMENTIN) 00 :00 (two) Medical 875-125 mg times Branch per tablet daily for 14 days. ciprofloxac No [id number] 750mg Take 1 Univers in HCl 750 05-01 tablet by ity of mg tablet 00:00: 04:59 mouth [place] 00 :00 every 12 Medical (twelve) Branch hours for 14 days. amoxicillin No [id number] 1{tbl} Take 1 Univers -clavulanat 05-01 tablet by it y of e 00:00: 04:59 mouth 2 [place] (AUGMENTIN) 00 :00 (two) Medical 875-125 mg times Branch per tablet daily for 14 days. ciprofloxac 2019- No [id number] 750mg Take 1 Univers in HCl 750 05-01 tablet by ity of mg tablet 00:00: 04:59 mouth [place] 00 :00 every 12 Medical (twelve) Branch hours for 14 days. amoxicillin No [id number] 1{tbl} Take 1 Univers -clavulanat 05-01 tablet by it y of e 00:00: 04:59 mouth 2 [place] (AUGMENTIN) 00 :00 (two) Medical 875-125 mg times Branch per tablet daily for 14 days. ciprofloxac 2019-2019- No [id number] 750mg Take 1 Univers in HCl 750 05-01 tablet by ity of mg tablet 00:00: 04:59 mouth [place] 00 :00 every 12 Medical (twelve) Branch hours for 14 days. amoxicillin 2019- 2020- No [id number] 1{tbl} Take 1 Univers -clavulanat 05-01 tablet by it y of e 00:00: 04:59 mouth 2 [place] (AUGMENTIN) 00 :00 (two) Medical 875-125 mg times Branch per tablet daily for 14 days. ciprofloxac 2019-2019- No [id number] 750mg Take 1 Univers in HCl 750 05-01 tablet by ity of mg tablet 00:00: 04:59 mouth [place] 00 :00 every 12 Medical (twelve) Branch hours for 14 days. amoxicillin 2019-2019- No [id number] 1{tbl} Take 1 Univers -clavulanat 05-01 tablet by it y of e 00:00: 04:59 mouth 2 [place] (AUGMENTIN) 00 :00 (two) Medical 875-125 mg times Branch per tablet daily for 14 days. ciprofloxac 2019-0 2019- No [id number] 750mg Take 1 Univers in HCl 750 05-01 tablet by ity of mg tablet 00:00: 04:59 mouth [place] 00 :00 every 12 Medical (twelve) Branch hours for 14 days. amoxicillin 2019-0 2019- No [id number] 1{tbl} Take 1 Univers -clavulanat 05-01 tablet by it y of e 00:00: 04:59 mouth 2 [place] (AUGMENTIN) 00 :00 (two) Medical 875-125 mg times Branch per tablet daily for 14 days. ciprofloxac 2020- 2020- No [id number] 750mg Take 1 Univers in HCl 750 05-01 tablet by ity of mg tablet 00:00: 04:59 mouth [place] 00 :00 every 12 Medical (twelve) Branch hours for 14 days. amoxicillin 2019- 2020- No [id number] 1{tbl} Take 1 Univers -clavulanat 05-01 tablet by it y of e 00:00: 04:59 mouth 2 [place] (AUGMENTIN) 00 :00 (two) Medical 875-125 mg times Branch per tablet daily for 14 days. acetaminoph 2019- 2020- No [id number] 650mg Take 2 Univers en 05-01 tablets by ity of (TYLENOL) 00:00: 00:00 mouth [place] 325 mg 00 :00 every 6 Medical tablet (six) Branch hours as needed for Pain (scale 4-6). ibuprofen 2019-0 2020- No [id number] 400mg Take 2 [facility] 200 mg 05-01 tablets by ity of tablet 00:00: 00:00 mouth [place] 00 :00 every 6 Medical (six) Branch hours as needed for Pain (scale 1-3). ciprofloxac 2019- 2020- No [id number] 750mg Take 1 Univers in HCl 750 05-01 tablet by ity of mg tablet 00:00: 00:00 mouth [place] 00 :00 every 12 Medical (twelve) Branch hours for 14 days. amoxicillin 2019- 2020- No [id number] 1{tbl} Take 1 Univers -clavulanat 05-01 tablet by it y of e 00:00: 00:00 mouth 2 [place] (AUGMENTIN) 00 :00 (two) Medical 875-125 mg times Branch per tablet daily for 14 days. lactated 2019- 2020- No 1000mL at 999 Univ ers ringers IV 04-25 mL/hr, ity of infusion 14:15: 13:31 1,000 mL, [place] 1,000 mL 00 :00 Intravenou Medic al s, ONCE, 1 Branch dose, 04/25/20 at 0915, Routine amoxicillin 2019-0 Yes 1{tbl} 1 tablet, Univers -clavulanat 04-25 Oral, ity of e 01:00: Q12H, [place] (AUGMENTIN) 00 First dose Me dical 875-125 mg on Thu Branch per tablet 04/24/20 at 1 tablet 2000, Until Discontinu ed, Routine
Reason for Anti-Infec tive: Empiric Therapy for Suspected Infection< br>Empiric Therapy Site: Abdominal& lt;br>Dura tion of therapy: 72 hours enoxaparin 2020-0 Yes 40mg 40 mg, Unive rs (LOVENOX) 04-24 Subcutaneo ity of injection 14:00: us, Q24H, [place] 40 mg 00 First dose Medical (after Branch last modificati on) on Thu04/24/20 at 0900, Until Discontinu ed, Routine iohexol 2019-0 2020- No 100mL 100 mL, Unive rs (OMNIPAQUE 04-23 Intravenou it y of 350 23:30: 23:30 s, ONCE, 1 [place] BULK-100 00 :00 dose, [facility] Medica l mL) 04/23/20 at Branch injection 1830, 100 mL Routine lactated 2019-0 2020- No 1000mL at 125 Univ ers ringers IV 04-2301 mL/hr, ity of infusion 23:15: 16:44 1,000 mL, [place] 1,000 mL 00 :20 IV Medical Infusion, Branch CONTINUOUS , Starting Thu04/23/20 at 1815, Until Thu04/24/20 at 1144, Routine NaCl 0.9% 2019-0 2020- No 1000mL at 999 Uni vers (NS) bolus 04-23 mL/hr, ity of infusion 16:30: 16:14 1,000 mL, [place] 1,000 mL 00 :00 IV Medical Piggyback, Branch ONCE, 1 dose, [facility] 04/23/20 at 1130, STAT micafungin 2019-0 2019- No 100mg 100 mg, IV Univers (MYCAMINE) 04-22 Piggyback, it y of 100 mg in 13:00: 15:59 Q24H ABX, [place] NaCl 0.9% 00 :00 1 dose, Medical (NS) 100 mL First dose Br anch MINI-BAG (after last reorder) on [place] 04/22/20 at 0800, 100 mL
Rest ricted use approved by: [employer]< br>Reason for Anti-Infec tive: Documented Infection< br>Documen dain Infection Site: Abdominal< br>Duratio n of Therapy: 7 days ciprofloxac 2020-0 Yes 750mg 750 mg, Un piyush in HCl 04-21 Oral, ity of (CIPRO) 23:00: Q12HA2, [place] tablet 750 00 First dose Med ical [facility] 04/21/20 at 1800, Until Discontinu ed, JOÃO
Re ason for Anti-Infec tive: Documented Infection< br>Documen dain Infection Site: Abdominal< br>Duratio n of Therapy: 7 days aspirin Yes 81mg 81 mg, Univers chewable 04-21 Oral, ity of tablet 81 14:00: DAILY, [place] mg 00 First dose Medical on [facility] 04/21/20 at 0900, Until Discontinu ed, Routine multivitami Yes 1{tbl} 1 tablet, Univers n tablet 1 04-21 Oral, ity of tablet 14:00: DAILY, [place] 00 First dose Medical on [facility] 04/21/20 at 0900, Until Discontinu ed, Routine amoxicillin 2020- No 500mg 500 mg, U nivers -pot 04-21 Oral, TID, ity of clavulanate 13:00: 14:44 First dose [place] 500 mg 00 :32 on [facility] (AUGMENTIN 04/21/20 at [facility] 500) 0800, 500-125 mg Until tablet 500 Discontinu mg ed, JOÃO
Re ason for Anti-Infec tive: Documented Infection< br>Documen dain Infection Site: Abdominal< br>Duratio n of Therapy: 7 days ciprofloxac 2020- No 400mg 400 mg, IV Univers in in 5 % 04-20 Piggyback, ity of dextrose 22:45: 14:44 Administer [place] (CIPRO) 00 :32 over 60 Medical piggyback Minutes, Branch 400 mg Q12H ABX, First dose on Thu04/20/20 at 1745, Until Discontinu ed, JOÃO
Re ason for Anti-Infec tive: Documented Infection< br>Documen dain Infection Site: Abdominal< br>Duratio n of Therapy: 7 days traMADoL 2019-0 2020- No 50mg 50 mg, Univer s (ULTRAM) 04-20 0909 Oral, ity of tablet 50 15:31: 11:12 Q6HPRN, [place] mg 23 :14 Starting Medical Fri Branch 04/20/20 at 1031, Until Thu05/02/20 at 0612, Routine, Pain (scale 7-10) D5W 0.45% 2020- No IV Univers NaCl 04-19 Infusion, ity of (1/2NS) 1 L 16:15: 11:41 at 20 [place] + KCL 20 00 :10 mL/hr, Medical mEq CONTINUOUS Branch , Starting Thu04/19/20 at 1115, Until Thu04/20/20 at 0641, Routine pantoprazol Yes 40mg 40 mg, Univ ers e 04-19 Oral, ity of (PROTONIX) 14:00: DAILY, [place] EC tablet 00 First dose Medi mariusz 40 mg on Thu Branch 04/19/20 at 0900, Until Discontinu ed, Routine acetaminoph Yes 500mg 500 mg, Un piyush en 04-19 Oral, ity of (TYLENOL) 11:00: Q6HPRN, [place] tablet 500 00 Starting Medic al mg Thu Branch 04/19/20 at 0600, Until Discontinu ed, Routine, Pain (scale 4-6), Temp > 38.5 C D5W 0.45% 2020- No IV Univers NaCl 04-18 Infusion, ity of (1/2NS) 1 L 15:00: 16:05 at 42 [place] + KCL 20 00 :11 mL/hr, Medical mEq CONTINUOUS Branch , Starting Thu04/18/20 at 1000, Until Thu04/19/20 at 1105, Routine ciprofloxac 2019- No 500mg 500 mg, U nivers in HCl 04-18 Oral, ity of (CIPRO) 01:45: 15:30 Q12HA2, [place] tablet 500 00 :34 First dose Med ical mg on Thu Branch 04/17/20 at 204, Until Discontinu ed, JOÃO
Re ason for Anti-Infec tive: Documented Infection< br>Documen dain Infection Site: Abdominal< br>Duratio n of Therapy: 7 days micafungin 0 2020- No 100mg 100 mg, IV Univers (MYCAMINE) 04-17 Piggyback, it y of 100 mg in 19:45: 20:45 Q24H ABX, [place] NaCl 0.9% 00 :00 5 doses, Medica l (NS) 100 mL First dose Br anch MINI-BAG (after last reorder) on [facility] 04/17/20 at 1445, [facility] 04/21/20 at 1445, 100 mL
Rest ricted use approved by: [employer]< br>Reason for Anti-Infec tive: Documented Infection< br>Documen dain Infection Site: Abdominal< br>Duratio n of Therapy: 7 days traMADoL 2019- No 50mg 50 mg, Univer s (ULTRAM) 04-17 Oral, ity of tablet 50 17:11: 15:31 Q6HPRN, [place] mg 09 :33 Starting Medical [facility] 04/17/20 at 1211, Until Thu04/20/20 at 1031, Routine, Pain (scale 4-6), Pain (scale 7-10) aspirin 2019- No 325mg 325 mg, Unive rs tablet 325 04-17 Oral, ity of mg 14:00: 15:33 DAILY, [place] 00 :03 First dose Medical on [facility] 04/17/20 at 0900, Until Discontinu ed, Routine lidocaine 2019- 2020- No PRN, Univers 1% (PF) 04-16 Starting ity of (XYLOCAINE) 21:17: 21:17 [facility] - [place] injection 53 :53 04/16/20 at [facility] 1617, Branch Until [facility] 04/16/20 at 1617, Routine FENTanyl PF 2019-0 2020- No Slow IV Un piyush (SUBLIMAZE 04-16 Push, PRN, it y of (PF)) 21:16: 21:16 Starting [place] injection 07 :07 [facility] 04/16/20 at Branch 1616, Until [facility] 04/16/20 at 1616, Routine midazolam 2019-0 2020- No IV Push, Uni vers (VERSED) 04-16 PRN, ity of injection 21:16: 21:16 Starting [place] 07 :07 [facility] 04/16/20 at Branch 1616, Until 04/16/20 at 1616, Routine piperacilli 2019- No 3.375g 3.375 g, Univers n-tazobacta 04-16 IV ity of m (ZOSYN) 18:15: 12:34 [place]back, [place] 3.375 g in 00 :59 Q6H ABX, Medic al NaCl 0.9% First dose Bran ch (NS) 100 mL on Mon MINI-BAG 04/16/20 at 1315, Until Discontinu ed, 100 mL
R mitali for Anti-Infec tive: Documented Infection< br>Documen dain Infection Site: Abdominal< br>Duratio n of Therapy: 7 days iohexol 2019- No 120mL 120 mL, Unive rs (OMNIPAQUE 04-16 Intravenou it y of 350 07:15: 06:55 s, ONCE, 1 [place] BULK-150 00 :00 dose, Mon Medica l mL) 04/16/20 at Branch injection 0215, 120 mL Routine DAPTOmycin No 500mg 500 mg, IV Univers (CUBICIN) 04-16 Piggyback, ity of 500 mg in 02:15: 01:11 Q24H ABX, [place] NaCl 0.9% 00 :00 4 doses, Medica l (NS) First dose Branch piggyback (after last reorder) on 04/15/20 at 2115, Last dose on 04/18/20 at 2115, 100 mL
Reas on for Anti-Infec tive: Empiric Therapy for Suspected Infection< br>Empiric Therapy Site: Abdominal< br>Duratio n of therapy: 7 days
Re stricted use approved by: [employer] lactated 2019- No 1000mL at 100 Univ ers ringers IV 04-14 09-01 mL/hr, ity of infusion 12:01: 17:52 1,000 mL, [place] 1,000 mL 00 :54 IV Medical Infusion, Branch TITRATE, Starting 04/14/20 at 0701, Until 04/24/20 at 1252, Routine D5W 0.45% 2019- No IV Univers NaCl 8-22 08-26 Infusion, ity of (1/2NS) 1 L 11:15: 14:50 at 84 [place] + KCL 20 00 :18 mL/hr, Medical mEq CONTINUOUS Branch , Starting 04/14/20 at 0615, Until 04/18/20 at 0950, Routine FENTanyl PF 2019- No 25ug 25 mcg, Un piyush (SUBLIMAZE 04-13 Slow IV ity o f (PF)) 22:09: 17:11 Push, [place] injection 26 :22 Q3HPRN, Medical 25 mcg Starting Branch 04/13/20 at 1709, Until 04/17/20 at 1211, Routine, Pain (scale 7-10) FENTanyl PF 2019- No Slow IV Un piyush (SUBLIMAZE 04-13 Push, PRN, it y of (PF)) 19:31: 19:55 Starting [place] injection 48 :00 Fri Medical 04/13/20 at Branch 1431, Until 04/13/20 at 1455, Routine midazolam No IV Push, Uni vers (VERSED) 04-13 PRN, ity of injection 19:31: 19:55 Starting [place] 36 :00 Fri Medical 04/13/20 at Branch 1431, Until 04/13/20 at 1455, Routine DAPTOmycin No 500mg 500 mg, IV Univers (CUBICIN) 04-13 Piggyback, ity of 500 mg in 01:00: 00:59 Q24H ABX, [place] NaCl 0.9% 00 :00 4 doses, Medica l (NS) First dose Branch piggyback (after last modificati on) on [place] 04/12/20 at 2000, Last dose on 04/15/20 at 2000, 100 mL
Reas on for Anti-Infec tive: Empiric Therapy for Suspected Infection< br>Empiric Therapy Site: Abdominal< br>Duratio n of therapy: 7 days<br&gt ;Restricte d use approved by: [employer] ampicillin- 2020- No 3g 3 g, IV Un piyush sulbactam 04-13 Piggyback, ity of (UNASYN) 3 01:00: 17:09 Q8H ABX, [place] g in NaCl 00 :25 First dose Medi mariusz 0.9% (NS) (after Branch 100 mL last MINI-BAG modificati on) on [place] 04/12/20 at 2000, Until Discontinu ed, 100 mL
Reas on for Anti-Infec tive: Documented Infection< br>Documen dain Infection Site: Abdominal< br>Duratio n of Therapy: 7 days pantoprazol 2019- No 40mg 40 mg, IV Univers e 04-12 Piggyback, ity of (PROTONIX) 22:45: 14:50 Q24H, [place] 40 mg in 00 :18 First dose Medic al NaCl 0.9% on [place] Branch (NS) 100 mL 04/12/20 at MINI-BAG 1745, Until Discontinu ed, 100 mL micafungin No 100mg 100 mg, IV Univers (MYCAMINE) 04-12 Piggyback, it y of 100 mg in 22:45: 23:08 Q24H ABX, [place] NaCl 0.9% 00 :00 5 doses, Medica l (NS) 100 mL First dose Br anch MINI-BAG on [place] 04/12/20 at 1800, Last dose on 04/16/20 at 1800, 100 mL
Rest ricted use approved by: [employer]< br>Reason for Anti-Infec tive: Documented Infection< br>Documen dain Infection Site: Abdominal< br>Duratio n of Therapy: 7 days D5W 0.45% 2019- No IV Univers NaCl 04-12 Infusion, ity of (1/2NS) 1 L 21:45: 11:01 at 125 [place] + KCL 20 00 :54 mL/hr, Medical mEq CONTINUOUS Branch , Starting [place] 04/12/20 at 1645, Until 04/14/20 at 0601, Routine iohexol 2019- No 100mL 100 mL, Unive rs (OMNIPAQUE 04-12 Intravenou it y of 350 21:30: 21:30 s, ONCE, 1 [place] BULK-100 00 :00 dose, [place] Medica l mL) 04/12/20 at Branch injection 1630, 100 mL Routine piperacilli 2019-0 2020- No 3.375g 3.375 g, Univers n-tazobacta 04-12 IV ity of m (ZOSYN) 19:15: 21:44 [place]gyback, [place] 3.375 g in 00 :46 Q6H ABX, Medic al NaCl 0.9% First dose Bran ch (NS) 100 mL on [place] MINI-BAG 04/12/20 at 1415, Until Discontinu ed, 100 mL
R mitali for Anti-Infec tive: Empiric Therapy for Suspected Infection< br>Empiric Therapy Site: Abdominal< br>Duratio n of therapy: 72 hours ketorolac 2019- 2020- No 15mg 15 mg, Unive rs (TORADOL) 04-12 Slow IV ity of injection 17:00: 17:03 Push, ONCE [place] 15 mg 00 :00 NOW, 1 Medical dose, [place] Branch 04/12/20 at 1200, Routine
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 : PHATAK, BIA D5W 0.45% 2020- No IV Univers NaCl 04-11 Infusion, ity of (1/2NS) 1 L 14:00: 21:44 at 42 [place] + KCL 20 00 :46 mL/hr, Medical mEq CONTINUOUS Branch , Starting 04/11/20 at 0900, Until [place] 04/12/20 at 1644, Routine pantoprazol 2019-2019- No 40mg 40 mg, Uni vers e 04-11 Oral, ity of (PROTONIX) 14:00: 21:44 DAILY, [place] EC tablet 00 :46 First dose Medi mariusz 40 mg on Wed Branch 04/11/20 at 0900, Until Discontinu ed, Routine KCL 2019-0 2020- No IV Univers (POTASSIUM 04-11 Infusion, ity of CHLORIDE) 13:52: 11:01 TITRATE, [place] 20 mEq in 06 :54 Starting Medica l lactated [facility] Branch ringers 04/11/20 at 1,000 mL 0852, infusion Until 04/14/20 at 0601, 1,000 mL, at 50 mL/hr nicotine 2019-0 Yes 1{patch 1 Patch, Un piyush (NICODERM) 04-11 } Topical, ity o f 7 mg/24 hr 13:15: Administer [place] patch 1 00 over 24 Medical Patch Hours, Branch Q24H, First dose on Thu04/11/20 at 0815, Until Discontinu ed, Routine enoxaparin 2019- 2020- No 40mg 40 mg, Univ ers (LOVENOX) 04-11 Subcutaneo ity of injection 13:00: 00:44 us, Q24H, [place] 40 mg 00 :31 First dose Medical on Thu Branch 04/11/20 at 0800, Until Discontinu ed, Routine magnesium 2020-0 2020- No 2g 2 g, IV Univ ers sulfate in 04-11 Piggyback, it y of water 2 11:45: 15:06 ONCE, 1 [place] gram/50 mL 00 :00 dose, Thu Medi mariusz (4 %) 04/11/20 at [place] infusion 2 0645, g Routine Total 2019- 2020- No at 40 Univers Parenteral 04-10 mL/hr, ity of Nutrition 22:00: 11:51 2,040 mL, [place] Adult 00 :29 TPNCONTINU Medical OUS, 1 Branch dose, First dose (after last modificati on) on Thu04/10/20 at 1700 magnesium 2020-0 2020- No 4g 4 g, IV Univ ers sulfate in 04-10 Piggyback, it y of water 4 13:30: 13:41 ONCE, 1 [place] gram/50 mL 00 :00 dose, Thu Medi mariusz (8 %) IV 04/10/20 at [facility] Piggyback 4 0830, g Routine DAPTOmycin 2019-0 2020- No 500mg 500 mg, IV Univers (CUBICIN) 04-10 Piggyback, ity of 500 mg in 06:00: 15:57 Q24H ABX, [place] NaCl 0.9% 00 :33 First dose Medi mariusz (NS) on Thu piggyback 04/10/20 at 0100, Until Discontinu ed, 100 mL
R mitali for Anti-Infec tive: Documented Infection< br>Documen dain Infection Site: Abdominal< br>Duratio n of Therapy: 7 days
Re stricted use approved by: [employer] ibuprofen 2019- No 600mg 600 mg, Uni vers (IBU) 04-10 Oral, Q8H, ity of tablet 600 03:00: 10:59 First dose [place] mg 00 :06 on [facility] Medical 04/09/20 at Branch 2200, Until Discontinu ed, Routine micafungin 2019- No 100mg 100 mg, IV Univers (MYCAMINE) 04-10 Piggyback, it y of 100 mg in 02:45: 15:57 Q24H ABX, [place] NaCl 0.9% 00 :33 First dose Medi mariusz (NS) 100 mL on [facility] MINI-BAG 04/09/20 at 2145, Until Discontinu ed, 100 mL
R estricted use approved by: [employer]< br>Reason for Anti-Infec tive: Documented Infection< br>Documen dain Infection Site: Abdominal< br>Duratio n of Therapy: 7 days ampicillin- 2019- No 3g 3 g, IV Un piyush sulbactam 04-10 Piggyback, ity of (UNASYN) 3 02:45: 16:18 Q8H ABX, [place] g in NaCl 00 :37 First dose Medi mariusz 0.9% (NS) on [facility] 100 mL 04/09/20 at MINI-BAG 2145, Until Discontinu ed, 100 mL
Reas on for Anti-Infec tive: Documented Infection< br>Documen dain Infection Site: Abdominal< br>Duratio n of Therapy: 7 days acetaminoph 2019- No 500mg 500 mg, U nivers en 04-0927 Oral, Q6H, ity of (TYLENOL) 23:00: 10:54 First dose [place] tablet 500 00 :23 on [facility] Medical mg 04/09/20 at Branch 1800, Until Discontinu ed, Routine Total 2019- No at 85 Univers Parenteral 04-09 08-18 mL/hr, ity of Nutrition 22:00: 22:18 2,040 mL, [place] 00 :00 TPNCONTINU Medical OUS, 1 Branch dose, First dose (after last reorder) on Thu04/09/20 at 1700 KCL 2019- 2020- No IV Univers (POTASSIUM 04-09 Infusion, ity of CHLORIDE) 17:43: 13:52 TITRATE, [place] 20 mEq in 20 :43 Starting Medica l lactated Mon Branch ringers 04/09/20 at 1,000 mL 1243, infusion Until Thu04/11/20 at 0852, 1,000 mL, at 50 mL/hr acetaminoph 2019- No 1000mg 1,000 mg, Univers en ADULT 04-09 IV ity of (OFIRMEV) 17:00: 19:44 Infusion, [place] injection 00 :03 Administer Medi mariusz 1,000 mg over 15 Branch Minutes, Q6H, 4 doses, First dose (after last reorder) on Thu04/09/20 at 1200, Last dose on Thu04/10/20 at 0600, Routine
Indicatio n: Perioperat ector Patient sodium 2019- 2020- No Topical, Univer s hypochlorit 04-09 BID, First i ty of e 0.025% 13:00: 14:50 dose on ([employer]) 00 :18 Mon Medical solution 04/09/20 at Bran h 0800, Until Discontinu ed, Routine magnesium 2019-2019- No 2g 2 g, IV Univ ers sulfate in 04-09 Piggyback, it y of water 2 12:00: 12:00 ONCE, 1 [place] gram/50 mL 00 :00 dose, Mon Medi mariusz (4 %) 04/09/20 at Branch infusion 2 0700, g Routine potassium 2019- 2020- No 44meq 44 mEq, IV Univers phosphate 04-09 Piggyback, ity of 44 mEq in 12:00: 13:04 ONCE, 1 [place] NaCl 0.9% 00 :00 dose, Mon Medic al (NS) 250 mL 04/09/20 at Br anch piggyback 0700, 250 mL Total 2019- 2020- No at 85 Univers Parenteral 04-08 mL/hr, ity of Nutrition 22:00: 21:45 2,040 mL, [place] 00 :00 TPNCONTINU Medical OUS, 1 Branch dose, First dose (after last modificati on) on 04/08/20 at 1700 acetaminoph 2019- 2020- No 1000mg 1,000 mg, Univers en ADULT 04-08 IV ity of ([facility]) 17:00: 11:15 Infusion, [place] injection 00 :00 Administer Medi mariusz 1,000 mg over 15 Branch Minutes, Q6H, 4 doses, First dose (after last modificati on) on 04/08/20 at 1200, Last dose on 04/09/20 at 0600, Routine
Indicatio n: Perioperat ector Patient acetaminoph 2020- No 1000mg 1,000 mg, Univers en ADULT 04-07 IV ity of ([facility]) 23:00: 14:28 Infusion, [place] injection 00 :31 Administer Medi mariusz 1,000 mg over 15 Branch Minutes, Q6H, 4 doses, First dose (after last reorder) on 04/07/20 at 1800, Last dose on [place] 04/08/20 at 1200, Routine
Indicatio n: Perioperat ector Patient D5W-LR IV 2019-0 2020- No 1000mL at 60 Univ ers infusion 04-07 08-16 mL/hr, IV ity o f 1,000 mL 22:45: 15:29 Infusion, [place] 00 :52 CONTINUOUS Medical , Starting Branch 04/07/20 at 1745, Until [place] 04/08/20 at 1029, Routine Total 2019- 2020- No at 85 Univers Parenteral 04-07 08-16 mL/hr, ity of Nutrition 22:00: 22:05 2,040 mL, [place] 00 :00 TPNCONTINU Medical OUS, 1 Branch dose, First dose on 04/07/20 at 1700 fluconazole 2019- 2020- No 400mg at 100 Un piyush (DIFLUCAN) 04-07 08-18 mL/hr, IV ity of IV 20:00: 01:35 Piggyback, [place] Piggyback 00 :07 Q24H ABX, Medic al 400 mg First dose Branch on 04/07/20 at 1500, Until Discontinu ed, JOÃO multivitami 2019-0 2020- No 15mL 15 mL, Uni vers n (CENTRUM) 8-15 08-28 Enteral, ity of solution 15 14:00: 15:31 DAILY, [place] mL 00 :33 First dose Medical (after Branch last modificati on) on Thu04/07/20 at 0900, Until Discontinu ed, Routine heparin 2020-0 2020- No 5000U 5,000 Univers (porcine) 04-07 0819 Units, ity of injection 11:00: 11:53 Subcutaneo [place] 5,000 Units 00 :30 us, Q8H, Medi mariusz First dose Branch on Thu04/07/20 at 0600, Until Discontinu ed, Routine D5W-LR IV 2020-0 2020- No 1000mL at 150 Uni vers infusion 04-07 08-15 mL/hr, IV ity o f 1,000 mL 08:45: 22:41 Infusion, [place] 00 :18 CONTINUOUS Medical , Starting Branch Thu04/07/20 at 0345, Until 04/07/20 at 1741, Routine D5W-LR IV 2020-0 2020- No 1000mL at 200 Uni vers infusion 04-07 08-15 mL/hr, IV ity o f 1,000 mL 03:00: 08:43 Infusion, [place] 00 :59 CONTINUOUS Medical , Starting Branch Thu04/06/20 at 2200, Until 04/07/20 at 0343, Routine hydrocortis 2019-0 2020- No 50mg 50 mg, IV Univers one sod 04-0716 Piggyback, ity o f succ 02:00: 02:09 Q6H, First [place] (CORTEF) 50 00 :14 dose on Medic al mg in NaCl Fri Branch 0.9% (NS) 04/06/20 at piggyback 2100, Until Discontinu ed, 50 mL sodium 2020-0 Yes 1{bottl 473 mL (1 Uni vers hypochlorit 04-07 e} Bottle), ity of e 0.5% 01:00: Topical, [place] (DAKINS) 00 BID, First Medic al solution dose Branch 473 mL (after last modificati on) on Thu04/06/20 at 2000, Until Discontinu ed, Routine linezolid 2020-0 2020- No 600mg 600 mg, IV Univers in dextrose 04-06 Infusion, it y of 5% (ZYVOX) 23:15: 01:35 Q12H ABX, [place] 600 mg/300 00 :07 First dose Med ical mL iv on Fri Branch infusion 04/06/20 at 600 mg 1815, Until Discontinu ed, 300 mL
R mitali for Anti-Infec tive: Empiric Therapy for Suspected Infection< br>Empiric Therapy Site: Abdominal< br>Duratio n of therapy: 7 days
Re stricted use approved by: Complicate d intra-abdo anca infection acetaminoph 2019- No 1000mg 1,000 mg, Univers en ADULT 04-06 IV ity of (OFIRMEV) 23:00: 17:13 Infusion, [place] injection 00 :00 Administer Medi mariusz 1,000 mg over 15 Branch Minutes, Q6H, 4 doses, First dose (after last reorder) on Thu04/06/20 at 1800, Last dose on 04/07/20 at 1200, Routine
Indicatio n: Perioperat ector Patient albumin 2019- No 25g 25 g, IV Unive rs (ALBUMINAR- 04-06 Infusion, it y of 5) 5 % 23:00: 22:59 Q6H, 4 [place] injection 00 :00 doses, Medical 25 g First dose Branch on Thu04/06/20 at 1800, Last dose on 04/07/20 at 1200, 500 mL
[place]opa cation: SEVERE SEPSIS AND SEPTIC SHOCK
C omments: First-line therapy: Crystalloi ds. Albumin in fluid resuscitat ion when patient requires substantia l amounts of crystalloi ds. perflutren 2019- No 3mL 3 mL, IV Un piyush protein-A 04-06 Push, ity of microsphr 22:30: 21:00 ONCE, 1 [place] (OPTISON) 00 :00 dose, Fri Medic al injection 3 04/06/20 at Br anch mL 1730, Routine fluconazole 2019- No 800mg at 100 Un piyush (DIFLUCAN) 04-06 mL/hr, IV ity of IV 21:15: 22:10 Piggyback, [place] piggyback 00 :00 ONCE, 1 Medical 800 mg dose, Fri Branch 04/06/20 at 1615, JOÃO hydrocortis 2020- No 100mg 100 mg, IV Univers one sod 04-06 Piggyback, ity o f succ 21:15: 22:41 ONCE, 1 [place] (CORTEF) 00 :00 dose, Fri Medica l 100 mg in 04/06/20 at Bran ch NaCl 0.9% 1615, 50 (NS) mL piggyback vasopressin 2020- No .03U/mi 0.03 Un piyush (PITRESSIN 04-06 n Units/min ity of SYNTHETIC) 21:00: 11:04 (4.5 [place] 40 Units in 00 :07 mL/hr), IV Me dical NaCl 0.9% Infusion, Bran h (NS) 100 mL CONTINUOUS infusion , Starting Thu04/06/20 at 1600 magnesium 2019-2019- No 4g 4 g, IV Univ ers sulfate in 04-06 Piggyback, it y of water 4 21:00: 00:03 ONCE, 1 [place] gram/50 mL 00 :00 dose, Fri Medi mariusz (8 %) IV 04/06/20 at Branc h Piggyback 4 1600, g Routine lactated 2019- 2020- No 1000mL at 999 Univ ers ringers IV 04-06 mL/hr, ity of infusion 20:01: 20:15 1,000 mL, [place] 1,000 mL 00 :00 Intravenou Medic al s, ONCE, 1 Branch dose, Thu04/06/20 at 1515, STAT meropenem 2020- No 1000mg 1,000 mg, Univers (MERREM) 04-06 IV ity of 1,000 mg in 19:30: 01:35 Piggyback, [place] NaCl 0.9% 00 :07 Administer Medi mariusz (NS) 100 mL over 180 Bran ch IV Minutes, piggyback Q8H ABX, First dose (after last modificati on) on Thu04/06/20 at 1430, Until Discontinu ed, JOÃO
Re stricted use approved by: [employer]
R mitali for Anti-Infec tive: Empiric Therapy for Suspected Infection< br>Empiric Therapy Site: Abdominal< br>Duratio n of therapy: 7 days D5W-LR IV 2019-0 2020- No 1000mL at 125 Uni vers infusion 04-06 08-15 mL/hr, IV ity o f 1,000 mL 19:30: 02:50 Infusion, [place] 00 :43 CONTINUOUS Medical , Starting Branch Thu04/06/20 at 1430, Until Thu04/06/20 at 2150, Routine lactated 2019- No 500mL at 999 Unive rs ringers IV 04-06-14 mL/hr, 500 it y of infusion 19:30: 19:30 mL, [place] 500 mL 00 :00 Intravenou Medical s, ONCE, 1 Branch dose, Thu04/06/20 at 1430, Routine NORepinephr 2019- No .05ug/k 0.05-1.5 Univers ine 4 mg in 04-06 08-17 g/min mcg/kg/min ity of D5W 250 mL 18:24: 11:04 ?79.4 kg [place] infusion 00 :07 (14.8875-4 Medic al RTU 46.625 Branch mL/hr, rounded to 14.89-446. 63 mL/hr), IV Infusion, TITRATE, MAP Goal > or = 65 mmHg, Starting Thu04/06/20 at 1324
In itiate titration at 0.05 mcg/kg/min . &nb sp;Increas e by 0.01 mcg/kg/min every 30 seconds to 5 minutes as needed to reach and maintain goal blood pressure.& nbsp;&nbsp ;Maximum dose = 1.5 mcg/kg/min . &nb sp;If goal not maintained at maximum allowed dose, contact prescriber .
fentaNYL PF 2020- No 25ug/h 25-200 U nivers (SUBLIMAZE) 04-06 08-17 mcg/hr ity o f STD 2,500 17:42: 11:04 (2.5-20 [place] mcg in NaCl 33 :07 mL/hr), IV Me dical 0.9% (NS) Infusion, Branc h 250 mL TITRATE, infusion CPOT/Pain RTU Scale Goals Determined by Provider, Starting Thu04/06/20 at 1242
In itiate infusion at 25 mcg/hr. Titrate by 25 mcg/hr every 1 minute to 15 minutes to identified goal pain and/or sedation scores. Maximum dose = 200 mcg/hr. If goal not maintained at maximum allowed dose, contact prescriber .
dexMEDEtomi 2019- 2020- No .2ug/kg 0.2-1.5 Univers dine 200 04-0614 /h mcg/kg/hr ity o f mcg in 0.9 17:28: 20:20 ?79.4 kg [place] % NaCl 50 14 :54 (3.97-29.7 Medi mariusz mL 75 mL/hr, Branch (PRECEDEX) rounded to RTU IV 3.97-29.78 infusion mL/hr), IV Infusion, TITRATE, Sedation-R ASS score (0 to -1), Starting Thu04/06/20 at 1228
In itiate infusion at 0.2 mcg/kg/hr and titrate by 0.1 mcg/kg/hr every 30 minutes to goal sedation score. Maximum dose = 1.5 mcg/kg/hr. If goal not maintained at maximum allowed dose, contact prescriber .
LORazepam 2020- No 2mg 2 mg, Slow U nivers (ATIVAN) 04-06 IV Push, ity of injection 2 16:46: 14:23 Q4HPRN, [place] mg 54 :22 Starting Medical Fri Branch 04/06/20 at 1146, Until 04/08/20 at 0923, Routine, Agitation, Sedation lactated 2019-0 2020- No 1000mL at 150 Univ ers ringers IV 04-06 mL/hr, ity of infusion 16:15: 18:30 1,000 mL, [place] 1,000 mL 00 :12 IV Medical Infusion, Branch CONTINUOUS , Starting Thu04/06/20 at 1115, Until Thu04/06/20 at 1330, Routine sodium 2020-0 2020- No ONCE INTRA Univ ers bicarbonate 04-06 PROCEDURE, i ty of 8.4 % (1 16:10: 16:29 Starting [place] mEq/mL) 00 :35 Fri Medical injection 04/06/20 at Bran ch 1110, Until 04/06/20 at 1129, Routine, Intra-op sodium 2020-0 2020- No ONCE INTRA Univ ers bicarbonate 04-06 PROCEDURE, i ty of 8.4 % (1 16:10: 16:29 Starting [place] mEq/mL) 00 :35 Fri Medical injection 04/06/20 at [facility] 1110, Until Thu04/06/20 at 1129, Routine, Intra-op calcium 2020-0 2020- No ONCE INTRA Uni vers chloride 04-06 PROCEDURE, ity of 100 mg/mL 16:09: 16:29 Starting [place] as (10 %) 00 :35 Fri Medical syringe 04/06/20 at Branch 1109, Until Thu04/06/20 at 1129, Routine, Intra-op calcium 2020-0 2020- No ONCE INTRA Uni vers chloride 04-06 PROCEDURE, ity of 100 mg/mL 16:09: 16:29 Starting [place] (10 %) 00 :35 Fri Medical syringe 04/06/20 at Branch 1109, Until Thu04/06/20 at 1129, Routine, Intra-op midazolam 2020-0 2020- No ONCE INTRA U nivers (VERSED) 04-06 PROCEDURE, ity of injection 15:39: 16:29 Starting [place] as 00 :35 Fri Medical 04/06/20 at Branch 1039, Until Thu04/06/20 at 1129, Routine, Intra-op midazolam 2020-0 2020- No ONCE INTRA U nivers (VERSED) 04-06 PROCEDURE, ity of injection 15:39: 16:29 Starting [place] 00 :35 Fri Medical 04/06/20 at Branch 1039, Until Thu04/06/20 at 1129, Routine, Intra-op EPINEPHrine 2020-0 2020- No CONTINUOUS Univers 1 mg in 04-06 PRN, ity of NaCl 0.9% 15:29: 16:29 Starting [place] as (NS) 00 :35 Fri Medical infusion 04/06/20 at [facility] 1029, Until Thu04/06/20 at 1129, Routine, Intra-op EPINEPHrine 2020-0 2020- No CONTINUOUS Univers 1 mg in 04-06 PRN, ity of NaCl 0.9% 15:29: 16:29 Starting [place] as (NS) 00 :35 Fri Medical infusion 04/06/20 at [facility] 1029, Until Thu04/06/20 at 1129, Routine, Intra-op piperacilli 2020-0 2020- No CONTINUOUS Univers n-tazobacta 04-06 PRN, ity of m (ZOSYN) 14:57: 16:29 Starting [place] as 3.375 g in 00 :35 Fri Medical NaCl 0.9% 04/06/20 at [facility] (NS) 100 mL 0957, infusion Until Discontinu ed, 100 mL, Intra-op piperacilli 2020-0 2020- No CONTINUOUS Univers n-tazobacta 04-06 PRN, ity of m (ZOSYN) 14:57: 16:29 Starting [place] 3.375 g in 00 :35 Fri Medical NaCl 0.9% 04/06/20 at [facility] (NS) 100 mL 0957, infusion Until Discontinu ed, 100 mL, Intra-op EPINEPHrine 2020-0 2020- No ONCE INTRA Univers 1:1,000 (1 04-06 PROCEDURE, it y of mg/mL) 14:54: 16:29 Starting [place] (ADRENALIN) 00 :35 Fri Medical injection 04/06/20 at [facility] 0954, Until Discontinu ed, Routine, Intra-op EPINEPHrine 2020-0 2020- No ONCE INTRA Univers 1:1,000 (1 04-06 PROCEDURE, it y of mg/mL) 14:54: 16:29 Starting [place] (ADRENALIN) 00 :35 Fri Medical injection 04/06/20 at [facility] 0954, Until Discontinu ed, Routine, Intra-op NORepinephr 2020-0 2020- No CONTINUOUS Univers ine 04-06 PRN, ity of (LEVOPHED) 14:39: 16:29 Starting [place] 4 mg in 00 :35 Fri Medical NaCl 0.9% 04/06/20 at [facility] (NS) 250 mL 0939, infusion Intra-op NORepinephr 2020-0 2020- No CONTINUOUS Univers ine 04-06 PRN, ity of (LEVOPHED) 14:39: 16:29 Starting [place] 4 mg in 00 :35 Fri Medical NaCl 0.9% 04/06/20 at [facility] (NS) 250 mL 0939, infusion Intra-op rocuronium 2020-0 2020- No IV Push, Un piyush (ZEMURON) 04-06 ONCE INTRA ity of injection 14:36: 16:29 PROCEDURE, [place] 00 :35 Starting Medical Fri Branch 04/06/20 at 0936, Until Thu04/06/20 at 1129, Routine, Intra-op rocuronium 2020-0 2020- No IV Push, Un piyush (ZEMURON) 04-06 ONCE INTRA ity of injection 14:36: 16:29 PROCEDURE, [place] 00 :35 Starting [facility] Fri Branch 04/06/20 at 0936, Until Thu04/06/20 at 1129, Routine, Intra-op phenylephri 2020-0 2020- No Intravenou Univers ne 04-06 s, ONCE ity of (VAZCULEP) 14:22: 16:29 INTRA [place] injection 00 :35 PROCEDURE, [facility] Starting Branch [facility] 04/06/20 at 0922, Until Thu04/06/20 at 1129, Routine, Intra-op phenylephri 2020-0 2020- No Intravenou Univers ne 04-06 s, ONCE ity of (VAZCULEP) 14:22: 16:29 INTRA [place] injection 00 :35 PROCEDURE, [facility] Starting Branch [facility] 04/06/20 at 0922, Until Thu04/06/20 at 1129, Routine, Intra-op ePHEDrine 2020-0 2020- No Slow IV Univ ers 25 mg/5 mL 04-06 Push, ONCE it y of (5 mg/mL) 14:15: 16:29 INTRA [place] syringe 00 :35 PROCEDURE, Medica l Starting Branch 04/06/20 at 0915, Until Thu04/06/20 at 1129, Routine, Intra-op succinylcho 2020-0 2020- No IV Push, U nivers line 04-06 ONCE INTRA ity of (QUELICIN) 14:15: 16:29 PROCEDURE, [place] injection 00 :35 Starting Medica l Fri Branch 04/06/20 at 0915, Until Thu04/06/20 at 1129, Routine, Intra-op propofol IV 2020-0 2020- No ONCE INTRA Univers infusion 04-06 PROCEDURE, ity of 14:15: 16:29 Starting [place] 00 :35 Fri Medical 04/06/20 at Branch 0915, Until Thu04/06/20 at 1129, Routine, Intra-op lidocaine 2020-0 2020- No ONCE INTRA U nivers 1% 04-06 PROCEDURE, ity of (XYLOCAINE) 14:15: 16:29 [place] 100 mg/10 00 :35 Fri Medical mL (1 %) 04/06/20 at [facility] h injection 0915, Until Thu04/06/20 at 1129, Routine, Intra-op FENTanyl PF 2020-0 2020- No ONCE INTRA Univers (SUBLIMAZE 04-06 PROCEDURE, it y of (PF)) 14:15: 16:29 Starting [place] injection 00 :35 Fri Medical 04/06/20 at Branch 0915, Until Thu04/06/20 at 1129, Routine, Intra-op ePHEDrine 2020-0 2020- No Slow IV Univ ers 25 mg/5 mL 04-06 Push, ONCE it y of (5 mg/mL) 14:15: 16:29 INTRA [place] syringe 00 :35 PROCEDURE, Medica l Starting Branch 04/06/20 at 0915, Until Thu04/06/20 at 1129, Routine, Intra-op succinylcho 2020-0 2020- No IV Push, U nivers line 04-06 ONCE INTRA ity of (QUELICIN) 14:15: 16:29 PROCEDURE, [place] injection 00 :35 Starting Medica l Fri Branch 04/06/20 at 0915, Until Thu04/06/20 at 1129, Routine, Intra-op propofol IV 2020-0 2020- No ONCE INTRA [facility] infusion 04-06 PROCEDURE, ity of 14:15: 16:29 Starting [place] 00 :35 [facility] 04/06/20 at Branch 0915, Until Thu04/06/20 at 1129, Routine, Intra-op lidocaine 2020-0 2020- No ONCE INTRA U nivers 1% 04-06 PROCEDURE, ity of (XYLOCAINE) 14:15: 16:29 [place] 100 mg/10 00 :35 Fri Medical mL (1 %) 04/06/20 at [facility] h injection 0915, Until Thu04/06/20 at 1129, Routine, Intra-op FENTanyl PF 2020-0 2020- No ONCE INTRA Univers (SUBLIMAZE 04-06 PROCEDURE, it y of (PF)) 14:15: 16:29 Starting [place] injection 00 :35 Fri Medical 04/06/20 at Branch 0915, Until Thu04/06/20 at 1129, Routine, Intra-op albumin 2020-0 2020- No CONTINUOUS Uni vers (ALBUMINAR- 04-06 PRN, ity of 5) 5 % 14:10: 16:29 Starting [place] injection 00 :35 [facility] 04/06/20 at Branch 0910, Until Discontinu ed, Intra-op lactated 2020-0 2020- No CONTINUOUS Un piyush ringers IV 04-06 PRN, ity of infusion 14:10: 16:29 [place] 00 :35 [facility] 04/06/20 at Branch 0910, Until Discontinu ed, Routine, Intra-op albumin 2020-0 2020- No CONTINUOUS Uni vers (ALBUMINAR- 04-06 PRN, ity of 5) 5 % 14:10: 16:29 Starting [place] injection 00 :35 [facility] 04/06/20 at Branch 0910, Until Discontinu ed, Intra-op lactated 2020-0 2020- No CONTINUOUS Un piyush ringers IV 04-06 PRN, ity of infusion 14:10: 16:29 [place] 00 :35 [facility] 04/06/20 at Branch 0910, Until Discontinu ed, Routine, Intra-op lactated 2020-0 2020- No 1000mL at 999 Univ ers ringers IV 04-06 mL/hr, ity of infusion 12:30: 12:37 1,000 mL, [place] 1,000 mL 00 :00 Intravenou Medic al s, ONCE, 1 Branch dose, 04/06/20 at 0730, Routine methocarbam 2019-0 2020- No 1000mg 1,000 mg, Univers ol 04-06 Intravenou ity of (ROBAXIN) 03:00: 16:15 s, Q8H, [place] injection 00 :46 First dose Medi mariusz 1,000 mg on [place] Branch 04/05/20 at 2200, Until Discontinu ed, Routine pantoprazol 2019-0 2020- No 40mg 40 mg, IV Univers e 04-06 Piggyback, ity of (PROTONIX) 01:00: 11:53 Q12H, [place] 40 mg in 00 :30 First dose Medic al NaCl 0.9% on [place] Branch (NS) 100 mL 04/05/20 at MINI-BAG 2000, Until Discontinu ed, 100 mL acetaminoph 2020-0 2020- No 1000mg 1,000 mg, Univers en ADULT 04-05 IV ity of (OFIRMEV) 23:00: 22:59 Infusion, [place] injection 00 :00 Administer Medi mariusz 1,000 mg over 15 Branch Minutes, Q6H, 4 doses, First dose on Thu04/05/20 at 1800, Last dose on Thu04/06/20 at 1200, Routine
Indicatio n: Perioperat ector Patient D5W 0.45% 2020-0 2020- No IV Univers NaCl 04-05 Infusion, ity of (1/2NS) 1 L 19:15: 11:04 at 125 [place] + KCL 20 00 :54 mL/hr, Medical mEq CONTINUOUS Branch , Starting Thu04/05/20 at 1415, Until Thu04/06/20 at 0604, Routine acetaminoph 2020-0 2020- No 650mg 650 mg, U nivers en 04-05 Oral, Q6H, ity of (TYLENOL) 17:00: 20:23 First dose [place] 160 mg/5 mL 00 :52 on [place] Medica l liquid 650 04/05/20 at Bra nch mg 1200, Until Discontinu ed, Routine methocarbam 2020-0 2020- No 500mg 500 mg, U nivers ol 04-05 Oral, QID, ity of (ROBAXIN) 13:00: 20:23 First dose [place] tablet 500 00 :52 on [place] Medical mg 04/05/20 at Branch 0800, Until Discontinu ed, Routine acetaminoph 2020-0 2020- No 1000mg 1,000 mg, Univers en ADULT 04-04 IV ity of (OFIRMEV) 23:00: 11:00 Infusion, [place] injection 00 :49 Administer Medi mariusz 1,000 mg over 15 Branch Minutes, Q6H, 4 doses, First dose (after last reorder) on Thu04/04/20 at 1800, Last dose on Thu04/05/20 at 1200, Routine
Indicatio n: Perioperat ector Patient alvimopan 2020-0 2020- No 12mg 12 mg, Unive rs (ENTEREG) 04-04 Oral, ity of capsule 12 20:00: 20:23 DAILY AT [place] mg 00 :52 1500, 6 Medical doses, Branch First dose (after last reorder) on Thu04/04/20 at 1500, Last dose on Thu04/09/20 at 1500, Routine
Restricte d use approved by: HELENE MEDELLIN - SURGERY/GE NERAL D5W 0.45% 2020-0 2020- No IV Univers NaCl 04-04 Infusion, ity of (1/2NS) 1 L 18:00: 19:13 at 42 [place] + KCL 20 00 :30 mL/hr, Medical mEq CONTINUOUS Branch , Starting Thu04/04/20 at 1300, Until [place] 04/05/20 at 1413, Routine enoxaparin 2020-0 2020- No 40mg 40 mg, Univ ers (LOVENOX) 04-04 Subcutaneo ity of injection 14:00: 16:15 us, DAILY, [place] 40 mg 00 :46 First dose Medical (after Branch last modificati on) on Thu04/04/20 at 0900, Until Discontinu ed, Routine pantoprazol 2020-0 2020- No 40mg 40 mg, Uni vers e 04-04 Oral, ity of (PROTONIX) 14:00: 20:23 DAILY, [place] EC tablet 00 :52 First dose Medi mariusz 40 mg on Thu Branch 04/04/20 at 0900, Until Discontinu ed, Routine gabapentin 2020-0 2020- No 300mg 300 mg, Un piyush (NEURONTIN) 04-04 Oral, TID, i ty of 250 mg/5 mL 13:00: 16:15 First dose [place] solution 00 :46 on Thu Medical 300 mg 04/04/20 at Branch 0800, Until Discontinu ed, Routine magnesium 2020-0 2020- No 4g 4 g, IV Univ ers sulfate in 04-04 Piggyback, it y of water 4 12:15: 19:01 ONCE, 1 [place] gram/50 mL 00 :00 dose, Wed Medi mariusz (8 %) IV 04/04/20 at Branc h Piggyback 4 0715, g Routine ketorolac 2020-0 2020- No 30mg 30 mg, Unive rs (TORADOL) 04-04 Slow IV ity of injection 05:00: 16:23 Push, Q6H, [place] 30 mg 00 :00 3 doses, Medical First dose Branch (after last modificati on) on Thu04/04/20 at 0000, Last dose on Thu04/04/20 at 1200, Routine
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
Indicatio n: Perioperat ector Patient ondansetron 2019- Yes 4mg 4 mg, Slow Univers (ZOFRAN 04-03 IV Push, ity of (PF)) 21:27: Q6HPRN, [place] injection 4 26 Starting Medi mariusz mg Branch 04/03/20 at 1627, Until Discontinu ed, Routine, Nausea and Vomiting (N/V) alvimopan 2019-2019- No 12mg 12 mg, Unive rs (ENTEREG) 04-03 Oral, ity of capsule 12 13:45: 14:02 ONCE, 1 [place] mg 00 :00 dose, [facility] Medical 04/03/20 at Branch 0845, Routine
Restricte d use approved by: HELENE MEDELLIN - SURGERY/GE NERAL heparin 2019-0 2020- No 5000U 5,000 Univers (porcine) 04-03 Units, ity of injection 12:00: 12:02 Subcutaneo [place] 5,000 Units 00 :00 us, ONCE, Med ical 1 dose, Branch 04/03/20 at 0700, Routine gabapentin 2019-2019- No 300mg 300 mg, Un piyush (NEURONTIN) 04-03 Oral, ity of 250 mg/5 mL 12:00: 12:02 ONCE, 1 [place] solution 00 :00 dose, Tue Medica l 300 mg 04/03/20 at Branch 0700, Routine D5W 0.45% 2019- 2020- No IV Univers NaCl 04-02 Infusion, ity of (1/2NS) 1 L 23:30: 17:59 at 125 [place] + KCL 20 00 :42 mL/hr, Medical mEq CONTINUOUS Branch , Starting 04/02/20 at 1830, Until 04/04/20 at 1259, Routine NaCl 0.9% 0 2020- No 1000mL at 999 Uni vers (NS) bolus 04-02 mL/hr, ity of infusion 22:45: 21:48 1,000 mL, [place] 1,000 mL 00 :00 IV Medical Piggyback, Branch ONCE, 1 dose, 04/02/20 at 1745, STAT pantoprazol 0 2019- No 40mg 40 mg, IV Univers e 04-02 Piggyback, ity of (PROTONIX) 00:15: 10:49 Q24H, [place] 40 mg in 00 :10 First dose Medic al NaCl 0.9% on [place] Branch (NS) 100 mL 04/01/20 at MINI-BAG 191, Until Discontinu ed, 100 mL D5W 0.45% 2019-0 2020- No IV Univers NaCl 04-02 Infusion, ity of (1/2NS) 1 L 00:15: 23:16 at 150 [place] + KCL 20 00 :16 mL/hr, Medical mEq CONTINUOUS Branch , Starting Thu04/01/20 at 1915, Until Thu04/02/20 at 1816, Routine acetaminoph 2019-0 2019- No 650mg 650 mg, U nivers en 04-01 Oral, ity of (TYLENOL) 23:11: 21:31 Q6HPRN, [place] tablet 650 57 :27 Starting Medic al mg 04/01/20 Branch at 1811, Until Thu04/03/20 at 1631, Routine, Pain (scale 1-3), Pain (scale 4-6) NaCl 0.9% 2019-0 2020- No 1000mL at 999 Uni vers (NS) bolus 04-01 08-10 mL/hr, ity of infusion 23:10: 00:18 1,000 mL, [place] 1,000 mL 00 :00 IV Medical Piggyback, Branch ONCE, 1 dose, [place] 04/01/20 at 1815, STAT lactulose 2019-0 2020- No 15mL 15 mL, Unive rs (CEPHULAC) 04-01 Oral, ity of solution 15 16:15: 16:01 ONCE, 1 [place] mL 00 :00 dose, [facility] 04/01/20 at Branch 1115, Routine Polyethylen 2019-0 2020- No 17g 17 g, Univ ers e Glycol 03-31 Oral, BID ity o f 3350 15:45: 23:13 MEALS, [place] (MIRALAX) 00 :14 First dose Medi mariusz powder 17 g on [facility] 03/31/20 at 1045, Until Discontinu ed, Routine enoxaparin 2019-0 2020- No 40mg 40 mg, Univ ers (LOVENOX) 03-31 Subcutaneo ity of injection 14:00: 10:50 us, DAILY, [place] 40 mg 00 :07 First dose Medical on [facility] 03/31/20 at 0900, Until Discontinu ed, Routine D5W-LR IV 2019-0 2020- No 1000mL at 125 Uni vers infusion 03-31 mL/hr, IV ity o f 1,000 mL 03:00: 23:13 Infusion, [place] 00 :14 CONTINUOUS Medical , Starting Branch Thu03/30/20 at 2200, Until [place] 04/01/20 at 1813, Routine ondansetron 2019-0 2020- No 4mg 4 mg, Slow Univers (ZOFRAN 03-31 IV Push, ity of (PF)) 01:51: 21:31 Q6HPRN, [place] injection 4 28 :27 Starting Medi mariusz mg Thu03/30/20 Branch at 2051, Until Tu04/03/20 at 1631, Routine, Nausea and Vomiting (N/V) iohexol 2019-0 2020- No 100mL 100 mL, Unive rs (OMNIPAQUE 03-31 Intravenou it y of 350 00:15: 21:08 s, ONCE, 1 [place] BULK-100 00 :00 dose, Fri Medica l mL) 03/30/20 at Branch injection 1915, 100 mL Routine ondansetron 2019-0 2020- No 4mg 4 mg, Slow Univers (ZOFRAN 03-30 IV Push, ity of (PF)) 23:15: 22:07 ONCE, 1 [place] injection 4 00 :00 dose, Fri Med ical mg 03/30/20 at Branch 1815, JOÃO FENTanyl PF 2019- 2020- No 50ug 50 mcg, Un piyush (SUBLIMAZE 03-30 Slow IV ity o f (PF)) 23:15: 22:06 Push, [place] injection 00 :00 ONCE, 1 Medical 50 mcg dose, Fri Branch 03/30/20 at 1815, Routine NaCl 0.9% 2019-0 2020- No 1000mL at 999 Uni vers (NS) bolus 03-30 mL/hr, ity of infusion 22:15: 23:43 1,000 mL, [place] 1,000 mL 00 :00 IV Medical Infusion, Branch ONCE, 1 dose, 03/30/20 at 1715, JOÃO metoclopram 2019-0 2020- No 5mg 5 mg, Slow Univers tammi HCl 03-28 08-06 IV Push, ity of (REGLAN) 01:00: 00:59 Q12H, 2 [place] injection 5 00 :00 doses, Medica l mg First dose Branch on Thu03/27/20 at 2000, Last dose on Thu03/28/20 at 0800, Routine metoclopram 2020-0 Yes [id number] 5mg Take 1 Univers tammi HCl 8-05 tablet by ity of (REGLAN) 5 00:00: mouth [place] mg tablet 00 every 12 Medica l (twelve) Branch hours as needed for Nausea and Vomiting (N/V) (constipat ion). metoclopram 2020-0 Yes [id number] 5mg Take 1 Univers tammi HCl 8-05 tablet by ity of (REGLAN) 5 00:00: mouth [place] mg tablet 00 every 12 Medica l (twelve) Branch hours as needed for Nausea and Vomiting (N/V) (constipat ion). metoclopram 2020-0 Yes [id number] 5mg Take 1 Univers tammi HCl 8-05 tablet by ity of (REGLAN) 5 00:00: mouth [place] mg tablet 00 every 12 Medica l (twelve) Branch hours as needed for Nausea and Vomiting (N/V) (constipat ion). metoclopram 2020-0 Yes [id number] 5mg Take 1 Univers tammi HCl 8-05 tablet by ity of (REGLAN) 5 00:00: mouth [place] mg tablet 00 every 12 Medica l (twelve) Branch hours as needed for Nausea and Vomiting (N/V) (constipat ion). metoclopram 2020-0 2020- No [id number] 5mg Take 1 Univers tammi HCl 8-05 09-08 tablet by ity of (REGLAN) 5 00:00: 00:00 mouth [place] mg tablet 00 :00 every 12 Medica l (twelve) Branch hours as needed for Nausea and Vomiting (N/V) (constipat ion). D5W-LR IV 2020-0 Yes 1000mL at 50 Unive rs infusion 8-04 mL/hr, IV ity of 1,000 mL 18:45: Infusion, [place] 00 CONTINUOUS Medical , Starting Branch Tu03/27/20 at 1345, Until Discontinu ed, Routine D5W-LR IV 2020-0 2020- No 1000mL at 100 Uni vers infusion 03-27 08-04 mL/hr, IV ity o f 1,000 mL 05:00: 18:41 Infusion, [place] 00 :45 CONTINUOUS Medical , Starting Branch Tu03/27/20 at 0000, Until Tu03/27/20 at 1341, Routine acetaminoph 2020-0 2020- No 1000mg 1,000 mg, Univers en ADULT 03-26 IV ity of (OFIRMEV) 05:15: 04:42 Infusion, [place] injection 00 :00 Administer Medi mariusz 1,000 mg over 15 Branch Minutes, ONCE, 1 dose, 03/26/20 at 0015, Routine
Indica tion: Perioperat ector Patient metoclopram 2020-0 2020- No 5mg 5 mg, Slow Univers tammi HCl 03-26 IV Push, ity of (REGLAN) 04:30: 22:24 Q8H ABX, 3 [place] injection 5 00 :00 doses, Medica l mg First dose Branch on 03/25/20 at 2330, Last dose on 03/26/20 at 1530, Routine heparin 2020-0 Yes 5000U 5,000 Univers (porcine) 03 Units, ity of injection 03:00: Subcutaneo [place] 5,000 Units 00 us, Q8H, Medi mariusz First dose Branch on 03/25/20 at 2200, Until Discontinu ed, Routine ondansetron 2020-0 Yes 4mg 4 mg, Slow Univers (ZOFRAN 03-26 IV Push, ity of (PF)) 02:46: Q6HPRN, [place] injection 4 11 Starting Medi mariusz mg [place] 03/25/20 Branch at 2146, Until Discontinu ed, Routine, Nausea and Vomiting (N/V) acetaminoph 2020-0 Yes 650mg 650 mg, Un piyush en 03-26 Oral, ity of (TYLENOL) 02:46: Q6HPRN, [place] tablet 650 05 Starting Medic al mg [place] 03/25/20 Branch at 2146, Until Discontinu ed, Routine, Pain (scale 1-3) iohexol 2020-0 2020- No 100mL 100 mL, Unive rs (OMNIPAQUE 03-26 0803 Intravenou it y of 350 01:30: 01:30 s, ONCE, 1 [place] BULK-100 00 :00 dose, [place] Medica l mL) 03/25/20 at Branch injection 2030, 100 mL Routine NaCl 0.9% 2020-0 2020- No 1000mL at 999 Uni vers (NS) bolus 03-26-03 mL/hr, ity of infusion 00:45: 00:42 1,000 mL, [place] 1,000 mL 00 :00 IV Medical Infusion, Branch ONCE, 1 dose, [place] 03/25/20 at 1945, JOÃO enoxaparin 2020-0 Yes 40mg 40 mg, Unive rs (LOVENOX) -11 Subcutaneo ity of injection 14:00: us, DAILY, [place] 40 mg 00 First dose Medical on Sat Branch 03/03/20 at 0900, Until Discontinu ed, Routine lactated 2020-0 Yes 1000mL at 100 Unive rs ringers IV 7-11 mL/hr, ity of infusion 04:15: 1,000 mL, [place] 1,000 mL 00 IV Medical Infusion, Branch CONTINUOUS , Starting Thu03/02/20 at 2315, Until Discontinu ed, Routine ondansetron 2020-0 Yes 4mg 4 mg, Slow Univers (ZOFRAN 7-11 IV Push, ity of (PF)) 04:05: Q6HPRN, [place] injection 4 40 Starting Medi mariusz mg Thu03/02/20 at 2305, Until Discontinu ed, Routine, Nausea and Vomiting (N/V) acetaminoph 2020-0 Yes 650mg 650 mg, Un piyush en 7-11 Oral, ity of (TYLENOL) 04:05: Q6HPRN, [place] tablet 650 30 Starting Medic al mg Thu03/02/20 at 2305, Until Discontinu ed, Routine, Pain (scale 1-3) Polyethylen 2020-0 Yes [id number] 17g Take 1 Univers e Glycol 7-07 Packet by ity of 3350 17 00:00: mouth [place] gram powder 00 daily. Medica l Branch Polyethylen 2020-0 Yes [id number] 17g Take 1 Univers e Glycol 7-07 Packet by ity of 3350 17 00:00: mouth [place] gram powder 00 daily. Medica l Branch Polyethylen 2020-0 Yes [id number] 17g Take 1 Univers e Glycol 7-07 Packet by ity of 3350 17 00:00: mouth [place] gram powder 00 daily. Medica l Branch Polyethylen 2020-0 Yes [id number] 17g Take 1 Univers e Glycol 7-07 Packet by ity of 3350 17 00:00: mouth [place] gram powder 00 daily. Medica l Branch Polyethylen 2020-0 2020- No [id number] 17g Take 1 Univers e Glycol 7-07 08-05 Packet by ity o f 3350 17 00:00: 00:00 mouth [place] gram powder 00 :00 daily. Medica l Branch Polyethylen 2020-0 Yes 17g 17 g, Unive rs e Glycol 7-06 Oral, ity of 3350 18:15: DAILY, [place] (MIRALAX) 00 First dose Medi mariusz powder 17 g on Mon Branch 02/27/20 at 1315, Until Discontinu ed, Routine enoxaparin 2020-0 Yes 40mg 40 mg, Unive rs (LOVENOX) 7-06 Subcutaneo ity of injection 14:00: us, DAILY, [place] 40 mg 00 First dose Medical on Mon Branch 02/27/20 at 0900, Until Discontinu ed, Routine polyethylen 2019-0 Yes [id number] 17g Take 17 g Univers e glycol 17 7-06 by mouth ity of gram/dose 00:00: daily. powder [facility] polyethylen 2020-0 Yes [id number] 17g Take 17 g Univers e glycol 17 7-06 by mouth ity of gram/dose 00:00: daily. powder [facility] polyethylen 2020-0 Yes [id number] 17g Take 17 g Univers e glycol 17 7-06 by mouth ity of gram/dose 00:00: daily. [place] powder [facility] polyethylen 2020-0 Yes [id number] 17g Take 17 g Univers e glycol 17 7-06 by mouth ity of gram/dose 00:00: daily. powder [facility] polyethylen 2020-0 Yes [id number] 17g Take 17 g Univers e glycol 17 7-06 by mouth ity of gram/dose 00:00: daily. powder [facility] polyethylen 2020-0 Yes [id number] 17g Take 17 g Univers e glycol 17 7-06 by mouth ity of gram/dose 00:00: daily. [place] powder [facility] polyethylen 2020-0 Yes [id number] 17g Take 17 g Univers e glycol 17 7-06 by mouth ity of gram/dose 00:00: daily. powder [facility] polyethylen 2020-0 Yes [id number] 17g Take 17 g Univers e glycol 17 7-06 by mouth ity of gram/dose 00:00: daily. [place] powder [facility] polyethylen 2020-0 2020- No [id number] 17g Take 17 g Univers e glycol 17 7-06 09-08 by mouth ity of gram/dose 00:00: 00:00 daily. [place] powder 00 :00 [facility] iohexol 2019-0 2020- No 120mL 120 mL, Unive rs (OMNIPAQUE 02-25 07-05 Intravenou it y of 350 18:30: 18:30 s, ONCE, 1 [place] BULK-100 00 :00 dose, [place] Medica l mL) 02/26/20 at Branch injection 1330, 120 mL Routine lactated 2020-0 2020- No 1000mL at 125 Univ ers ringers IV 7- 07-06 mL/hr, ity of infusion 16:00: 17:57 1,000 mL, [place] 1,000 mL 00 :14 IV Medical Infusion, Branch CONTINUOUS , Starting 02/26/20 at 1100, Until 02/27/20 at 1257, Routine acetaminoph 2019-0 Yes 650mg 650 mg, Un piyush en 705 Oral, ity of (TYLENOL) 15:01: Q6HPRN, [place] tablet 650 46 Starting Medic al mg 02/26/20 Branch at 1001, Until Discontinu ed, Routine, Pain (scale 1-3), Pain (scale 4-6) pantoprazol 2020-0 2020- No [id number] 40mg Take 1 Univers e 40 mg EC 6-15 -14 tablet by ity of tablet 00:00: 04:59 mouth [place] 00 :00 daily for Medical 90 days. Branch pantoprazol 2020-0 2020- No [id number] 40mg Take 1 Univers e 40 mg EC 6-15 -14 tablet by ity of tablet 00:00: 04:59 mouth [place] 00 :00 daily for Medical 90 days. Branch pantoprazol 2020-0 2020- No [id number] 40mg Take 1 Univers e 40 mg EC 6-15 -14 tablet by ity of tablet 00:00: 04:59 mouth [place] 00 :00 daily for Medical 90 days. Branch pantoprazol 2020-0 2020- No [id number] 40mg Take 1 Univers e 40 mg EC 6-15 -14 tablet by ity of tablet 00:00: 04:59 mouth [place] 00 :00 daily for Medical 90 days. Branch pantoprazol 2020-0 2020- No [id number] 40mg Take 1 Univers e 40 mg EC 6-15 -14 tablet by ity of tablet 00:00: 04:59 mouth [place] 00 :00 daily for Medical 90 days. Branch pantoprazol 2020-0 2020- No [id number] 40mg Take 1 Univers e 40 mg EC 6-15 -14 tablet by ity of tablet 00:00: 04:59 mouth [place] 00 :00 daily for Medical 90 days. Branch pantoprazol 2020-0 2020- No [id number] 40mg Take 1 Univers e 40 mg EC 6-15 09-14 tablet by ity of tablet 00:00: 04:59 mouth [place] 00 :00 daily for Medical 90 days. Branch pantoprazol 2020-0 2020- No [id number] 40mg Take 1 Univers e 40 mg EC 6-15 09-14 tablet by ity of tablet 00:00: 04:59 mouth [place] 00 :00 daily for Medical 90 days. Branch pantoprazol 2020-0 2020- No [id number] 40mg Take 1 Univers e 40 mg EC 6-15 -14 tablet by ity of tablet 00:00: 04:59 mouth [place] 00 :00 daily for Medical 90 days. Branch pantoprazol 2020-0 2020- No [id number] 40mg Take 1 Univers e 40 mg EC 6-15 -14 tablet by ity of tablet 00:00: 04:59 mouth [place] 00 :00 daily for Medical 90 days. Branch pantoprazol 2020-0 2020- No [id number] 40mg Take 1 Univers e 40 mg EC 6-15 -14 tablet by ity of tablet 00:00: 04:59 mouth [place] 00 :00 daily for Medical 90 days. Branch pantoprazol 2020-0 2020- No [id number] 40mg Take 1 Univers e 40 mg EC 6-15 -14 tablet by ity of tablet 00:00: 04:59 mouth [place] 00 :00 daily for Medical 90 days. Branch pantoprazol 2020-0 2020- No [id number] 40mg Take 1 Univers e 40 mg EC 6-15 09-08 tablet by ity of tablet 00:00: 00:00 mouth [place] 00 :00 daily for Medical 90 days. Branch docusate 2020-0 2020- No [id number] 100mg Take 1 Univers 100 mg 6-14 09-13 capsule by ity of capsule 00:00: 04:59 mouth 2 [place] 00 :00 (two) Medical times Branch daily for 90 days. docusate 2020-0 2020- No [id number] 100mg Take 1 Univers 100 mg 6-14 09-13 capsule by ity of capsule 00:00: 04:59 mouth 2 [place] 00 :00 (two) Medical times Branch daily for 90 days. docusate 2020-0 2020- No [id number] 100mg Take 1 Univers 100 mg 6-14 09-13 capsule by ity of capsule 00:00: 04:59 mouth 2 [place] 00 :00 (two) Medical times Branch daily for 90 days. docusate 2020-0 2020- No [id number] 100mg Take 1 Univers 100 mg 6-14 09-13 capsule by ity of capsule 00:00: 04:59 mouth 2 [place] 00 :00 (two) Medical times Branch daily for 90 days. docusate 2020-0 2020- No [id number] 100mg Take 1 [facility] 100 mg 6-14 09-13 capsule by ity of capsule 00:00: 04:59 mouth 2 [place] 00 :00 (two) Medical times Branch daily for 90 days. docusate 2020-0 2020- No [id number] 100mg Take 1 [facility] 100 mg 6-14 09-13 capsule by ity of capsule 00:00: 04:59 mouth 2 [place] 00 :00 (two) Medical times Branch daily for 90 days. docusate 2020-0 2020- No [id number] 100mg Take 1 [facility] 100 mg 6-14 09-13 capsule by ity of capsule 00:00: 04:59 mouth 2 [place] 00 :00 (two) Medical times Branch daily for 90 days. docusate 2020-0 2020- No [id number] 100mg Take 1 [facility] 100 mg 6-14 09-13 capsule by ity of capsule 00:00: 04:59 mouth 2 [place] 00 :00 (two) Medical times Branch daily for 90 days. docusate 2020-0 2020- No [id number] 100mg Take 1 [facility] 100 mg 6-14 09-13 capsule by ity of capsule 00:00: 04:59 mouth 2 [place] 00 :00 (two) Medical times Branch daily for 90 days. docusate 2020-0 2020- No [id number] 100mg Take 1 [facility] 100 mg 6-14 09-13 capsule by ity of capsule 00:00: 04:59 mouth 2 [place] 00 :00 (two) Medical times Branch daily for 90 days. docusate 2020-0 2020- No [id number] 100mg Take 1 [facility] 100 mg 6-14 09-13 capsule by ity of capsule 00:00: 04:59 mouth 2 [place] 00 :00 (two) Medical times Branch daily for 90 days. docusate 2020-0 2020- No [id number] 100mg Take 1 [facility] 100 mg 6-14 09-13 capsule by ity of capsule 00:00: 04:59 mouth 2 [place] 00 :00 (two) Medical times Branch daily for 90 days. docusate 2020-0 2020- No [id number] 100mg Take 1 [facility] 100 mg 02-04 capsule by ity of capsule 00:00: 00:00 mouth 2 [place] 00 :00 (two) Medical times [place] daily for 90 days. pantoprazol 2020-0 Yes 40mg 40 mg, Univ ers e 01-28 Oral, ity of (PROTONIX) 14:00: DAILY, [place] EC tablet 00 First dose Medi mariusz 40 mg on [facility] 01/29/20 at 0900, Until Discontinu ed, Routine enoxaparin 2020-0 Yes 40mg 40 mg, Unive rs (LOVENOX) 01-28 Subcutaneo ity of injection 14:00: us, DAILY, [place] 40 mg 00 First dose Medical on [facility] 01/29/20 at 0900, Until Discontinu ed, Routine docusate 2020-0 Yes 100mg 100 mg, Unive rs (COLACE) 01-28 Oral, ity of capsule 100 14:00: DAILY, [place] mg 00 First dose Medical on [facility] 01/29/20 at 0900, Until Discontinu ed, Routine levothyroxi 2020-0 Yes 50ug 50 mcg, Uni vers ne 01-28 Oral, ity of (SYNTHROID) 11:00: QAM-0600, [place] tablet 50 00 First dose Medi mariusz mcg on [facility] 01/29/20 at 0600, Until Discontinu ed, Routine simethicone 2020-0 Yes 80mg 80 mg, Univ ers (GAS RELIEF 01-28 Oral, ity of (SIMETHICON 04:45: PC[place]HS[place] 00 First dose Medical che[facility]able [facility] tablet 80 01/28/20 at mg 2345, Until Discontinu ed, Routine D5W IV 2020-0 2020- No 1000mL at 50 Univers infusion 01-28-14 mL/hr, IV ity o f 1,000 mL 03:45: 18:41 Infusion, Javi as 00 :31 CONTINUOUS Medical , Starting [facility] 01[facility]20 at 2245, Until [place] 02/05/20 at 1341, Routine bisacodyL 2020-0 2020- No 10mg 10 mg, Unive rs (DULCOLAX) 01-28-07 Rectal, ity o f suppository 03:00: 02:52 [place]CE, 1 [place] 10 mg 00 :00 dose, Sat Medical 01/28/20 at Branch 2200, Routine ondansetron 2020-0 Yes 4mg 4 mg, Slow Univers (ZOFRAN 01-28 IV Push, ity of (PF)) 01:32: Q6HPRN, [place] injection 4 44 Starting Medi mariusz mg 01/28/20 Branch at 2031, Until Discontinu ed, Routine, Nausea and Vomiting (N/V) traMADol 2019-0 2020- No 50mg 50 mg, Univer s (ULTRAM) 01-28 06-09 Oral, ity of tablet 50 01:32: 01:31 Q8HPRN, [place] mg 25 :25 Starting Medical 01/28/20 Branch at 2031, Until 01/30/20 at 2030, Routine, Pain (scale 4-6) acetaminoph 2019-0 Yes 650mg 650 mg, Un piyush en 01-28 Oral, ity of (TYLENOL) 01:32: Q6HPRN, [place] tablet 650 14 Starting Medic al mg [facility] 01/28[facility]20 Branch at 2031, Until Discontinu ed, Routine, Pain (scale 1-3) morpHINE 2020-0 2020- No 4mg 4 mg, Slow Un piyush injection 4 01-28- IV Push, ity of mg 00:45: 23:55 ONCE, 1 [place] 00 :00 dose, Sat Medical 01/28/20 at Branch 1945, STAT iohexol 2020-0 2020- No 100mL 100 mL, Unive rs (OMNIPAQUE 01-28 Intravenou it y of 350 00:00: 00:00 s, ONCE, 1 [place] BULK-100 00 :00 dose, Sat Medica l mL) 01/28/20 at Branch injection 1900, 100 mL Routine ondansetron 2020-0 2020- No 4mg 4 mg, Slow Univers (ZOFRAN 01-27- IV Push, ity of (PF)) 23:15: 23:35 Administer [place] injection 4 00 :00 over 15 Medic al mg Minutes, Branch ONCE, 1 dose, 01/28/20 at 1815, STAT heparin 2020-0 Yes 5000U 5,000 Univers (porcine) 6-03 Units, ity of injection 13:00: [place] 5,000 Units 00 us, Q12H, Med ical First dose Branch on Thu01/25/20 at 0800, Until Discontinu ed, Routine D5W 0.9% 2020-0 Yes 1000mL at 100 Unive rs NaCl (NS) 6-03 mL/hr, ity of IV infusion 07:15: 1,000 mL, [place] 1,000 mL 00 IV Medical Infusion, Branch CONTINUOUS , Starting Thu01/25/20 at 0215, Until Discontinu ed, Routine morpHINE 2020-0 Yes 2mg 2 mg, Slow Uni vers injection 2 01-24 IV Push, ity of mg 06:14: Q6HPRN, [place] 00 Starting Medical Thu01/25/20 Branch at 0114, Until Discontinu ed, Routine, Pain (scale 7-10) proCHLORper 2020-0 Yes 10mg 10 mg, Univ ers azine 03 Slow IV ity of (COMPAZINE) 06:12: Push, [place] injection 17 Q6HPRN, Medical 10 mg Starting Branch Thu01/25/20 at 0112, Until Discontinu ed, Routine, Nausea and Vomiting (N/V) iohexol 2020-0 2020- No 100mL 100 mL, Unive rs (OMNIPAQUE 01-24 Intravenou it y of 350 02:15: 02:11 s, ONCE, 1 [place] BULK-100 00 :00 dose, Tue Medica l mL) 01/24/20 at Branch injection 2115, 100 mL Routine morpHINE 2020-0 2020- No 4mg 4 mg, Slow Un piyush injection 4 01-24- IV Push, ity of mg 01:45: 00:43 ONCE, 1 [place] 00 :00 dose, [facility] Medical 01/24/20 at Branch 2045, Routine ondansetron 2020-0 2020- No 4mg 4 mg, Slow Univers (ZOFRAN 01-24 06- IV Push, ity of (PF)) 00:45: 00:58 Administer [place] injection 4 00 :00 over 15 Medic al mg Minutes, Branch ONCE, 1 dose, [facility] 01/24/20 at 1945, STAT NaCl 0.9% 2020-0 2020- No 1000mL at 999 Uni vers (NS) bolus 01-24 06-03 mL/hr, ity of infusion 00:45: 01:15 1,000 mL, Javi as 1,000 mL 00 :00 IV Medical Infusion, [place] ONCE, 1 dose, 01/24/20 at 1945, JOÃO mineral oil 0 2020- No [id number] 30mL Take 30 mL Univers oral liquid 4-20 05-05 by mouth ity of 00:00: 04:59 daily for [place] 00 :00 14 days. Medical Branch tamsulosin Yes .4mg QD Take 1 [facility] (FLOMAX) 8-10 capsule [facility] 0.4 mg Cap 00:00: (0.4 mg Medi mariusz 24 hr 00 total) by Center capsule mouth daily. levothyroxi Yes 50ug Take 1 Univ ers ne 50 mcg 2-07 tablet by ity o f tablet 00:00: mouth [place] 00 every Medical morning. Branch levothyroxi Yes 50ug Take 1 Univ ers ne 50 mcg 2-07 tablet by ity o f tablet 00:00: mouth [place] 00 every Medical morning. Branch levothyroxi Yes 50ug Take 1 Univ ers ne 50 mcg 2-07 tablet by ity o f tablet 00:00: mouth [place] 00 every Medical morning. Branch levothyroxi 2020- No 50ug Take 1 Uni vers ne 50 mcg 2-07 06-14 tablet by ity of tablet 00:00: 00:00 mouth [place] 00 :00 every Medical morning. Branch Immunizations Ordered Filled Immunization Date Status Comments [facility] e Immunization Name Name Influenza Virus 2021-06-04 Completed Universit y of Vaccine Quad IM, 00:00:00 [place] Me dical Preserv and ABX Branch Free 2-64 YRS Influenza Virus 2021-06-04 Completed Universit y of Vaccine Quad IM, 00:00:00 [place] Me dical Preserv and ABX Branch Free 6 MO-64 YRS Influenza Virus 2021-06-04 Completed Universit y of Vaccine Quad IM, 00:00:00 [place] Me dical Preserv and ABX Branch Free 6 MO-64 YRS Influenza Virus 2021-06-04 Completed Universit y of Vaccine Quad IM, 00:00:00 [place] Me dical Preserv and ABX Branch Free 6 MO-64 YRS Influenza Virus 2021-06-04 Completed Universit y of Vaccine Quad IM, 00:00:00 [place] Me dical Preserv and ABX Branch Free 6 MO-64 YRS Influenza Virus 2021-06-04 Completed Universit y of Vaccine Quad IM, 00:00:00 [place] Me dical Preserv and ABX Branch Free 6 MO-64 YRS Influenza Virus 2021-06-04 Completed Universit y of Vaccine Quad IM, 00:00:00 [place] Me dical Preserv and ABX Branch Free 6 MO-64 YRS Influenza Virus 2021-06-04 Completed Universit y of Vaccine Quad IM, 00:00:00 [place] Me dical Preserv and ABX Branch Free 6 MO-64 YRS Influenza Virus 2021-06-04 Completed Universit y of Vaccine Quad IM, 00:00:00 [place] Me dical Preserv and ABX Branch Free 6 MO-64 YRS Influenza Virus 2021-06-04 Completed Universit y of Vaccine Quad IM, 00:00:00 [place] Me dical Preserv and ABX Branch Free 6 MO-64 YRS Influenza Virus 2021-06-04 Completed Universit y of Vaccine Quad IM, 00:00:00 [place] Me dical Preserv and ABX Branch Free 6 MO-64 YRS Influenza Virus 2021-06-04 Completed Universit y of Vaccine Quad IM, 00:00:00 [place] Me dical Preserv and ABX Branch Free 6 MO-64 YRS Influenza Virus 2021-06-04 Completed Universit y of Vaccine Quad IM, 00:00:00 [place] Me dical Preserv and ABX Branch Free 6 MO-64 YRS Influenza Virus 2021-06-04 Completed Universit y of Vaccine Quad IM, 00:00:00 [place] Me dical Preserv and ABX Branch Free 6 MO-64 YRS Influenza Virus 2021-06-04 Completed Universit y of Vaccine Quad IM, 00:00:00 [place] Me dical Preserv and ABX Branch Free 6 MO-64 YRS Influenza Virus 2021-06-04 Completed Universit y of Vaccine Quad IM, 00:00:00 [place] Me dical Preserv and ABX Branch Free 6 MO-64 YRS Influenza Virus 2021-06-04 Completed Universit y of Vaccine Quad IM, 00:00:00 [place] Me dical Preserv and ABX Branch Free 6 MO-64 YRS Influenza Virus 2021-06-04 Completed Universit y of Vaccine Quad IM, 00:00:00 [place] Me dical Preserv and ABX Branch Free 6 MO-64 YRS Influenza Virus 2021-06-04 Completed Universit y of Vaccine Quad IM, 00:00:00 [facility] dical Preserv and ABX Branch Free 6 MO-64 YRS Influenza Virus 2020-08-24 Completed Universit y of Vaccine Quad .5 mL 00:00:00 [place] [facility] IM 6+ MO Branch Influenza Virus 2020-08-24 Completed Universit y of Vaccine Quad .5 mL 00:00:00 [place] [facility] IM 6+ MO Branch Influenza Virus 2020-08-24 Completed Universit y of Vaccine Quad .5 mL 00:00:00 [place] [facility] IM 6+ MO Branch Influenza Virus 2020-08-24 Completed Universit y of Vaccine Quad .5 mL 00:00:[address] [facility] IM 6+ MO Branch Influenza Virus 2020-08-24 Completed Universit y of Vaccine Quad .5 mL 00:00:[address] [facility] IM 6+ MO Branch Influenza Virus 2020-08-24 Completed Universit y of Vaccine Quad .5 mL 00:00:[address] [facility] IM 6+ MO Branch Influenza Virus 2020-08-24 Completed Universit y of Vaccine Quad .5 mL 00:00:[address] [facility] IM 6+ MO Branch Influenza Virus 2020-08-24 Completed Universit y of Vaccine Quad .5 mL 00:00:[address] [facility] IM 6+ MO Branch Influenza Virus 2020-08-24 Completed Universit y of Vaccine Quad .5 mL 00:00:[address] [facility] IM 6+ MO Branch Influenza Virus 2020-08-24 Completed Universit y of Vaccine Quad .5 mL 00:00:[address] [facility] IM 6+ MO Branch Influenza Virus 2020-08-24 Completed Universit y of Vaccine Quad .5 mL 00:00:[address] [facility] IM 6+ MO Branch Influenza Virus 2020-08-24 Completed Universit y of Vaccine Quad .5 mL 00:00:00 [place] [facility] IM 6+ MO Branch Influenza Virus 2020-08-24 Completed Universit y of Vaccine Quad .5 mL 00:00:[address] [facility] IM 6+ MO Branch Influenza Virus 2020-08-24 Completed Universit y of Vaccine Quad .5 mL 00:00:[address] [facility] IM 6+ MO Branch Influenza Virus 2020-08-24 Completed Universit y of Vaccine Quad .5 mL 00:00:[address] [facility] IM 6+ MO Branch Influenza Virus 2020-08-24 Completed Universit y of Vaccine Quad .5 mL 00:00:00 [place] [facility] IM 6+ MO Branch Influenza Virus 2020-08-24 Completed Universit y of Vaccine Quad .5 mL 00:00:00 [place] [facility] IM 6+ MO Branch Influenza Virus 2020-08-24 Completed Universit y of Vaccine Quad .5 mL 00:00:00 [place] [facility] IM 6+ MO Branch Influenza Virus 2020-08-24 Completed Universit y of Vaccine Quad .5 mL 00:00:00 [place] [facility] IM 6+ MO Branch Influenza Virus 2020-08-24 Completed Universit y of Vaccine Quad .5 mL 00:00:00 [place] [facility] IM 6+ MO Branch Influenza Virus 2020-08-24 Completed Universit y of Vaccine Quad .5 mL 00:00:00 [place] [facility] IM 6+ MO Branch Influenza Virus 2020-08-24 Completed Universit y of Vaccine Quad .5 mL 00:00:00 [place] [facility] IM 6+ MO Branch Influenza Virus 2020-08-24 Completed Universit y of Vaccine Quad .5 mL 00:00:00 [place] [facility] IM 6+ MO Branch Influenza Virus 2020-08-24 Completed Universit y of Vaccine Quad .5 mL 00:00:00 [place] [facility] IM 6+ MO Branch Influenza Virus 2020-08-24 Completed Universit y of Vaccine Quad .5 mL 00:00:00 [place] [facility] IM 6+ MO Branch Influenza Virus 2020-08-24 Completed Universit y of Vaccine Quad .5 mL 00:00:00 [place] [facility] IM 6+ MO Branch Influenza Virus 2016-05-16 Completed Universit y of Vaccine Quad IM 3+ 00:00:00 [facility] Influenza Virus 2016-05-16 Completed Universit y of Vaccine Quad IM 3+ 00:00:00 [facility] Influenza Virus 2016-05-16 Completed Universit y of Vaccine Quad IM 3+ 00:00:00 [facility] Influenza Virus 2016-05-16 Completed Universit y of Vaccine Quad IM 3+ 00:00:00 [facility] Influenza Virus 2016-05-16 Completed Universit y of Vaccine Quad IM 3+ 00:00:00 [facility] Influenza Virus 2016-05-16 Completed Universit y of Vaccine Quad IM 3+ 00:00:00 [facility] Influenza Virus 2016-05-16 Completed Universit y of Vaccine Quad IM 3+ 00:00:00 [facility] Influenza Virus 2016-05-16 Completed Universit y of Vaccine Quad IM 3+ 00:00:00 [facility] Influenza Virus 2016-05-16 Completed Universit y of Vaccine Quad IM 3+ 00:00:00 [facility] Influenza Virus 2016-05-16 Completed Universit y of Vaccine Quad IM 3+ 00:00:00 [facility] Influenza Virus 2016-05-16 Completed Universit y of Vaccine Quad IM 3+ 00:00:00 [facility] Influenza Virus 2016-05-16 Completed Universit y of Vaccine Quad IM 3+ 00:00:00 [facility] Influenza Virus 2016-05-16 Completed Universit y of Vaccine Quad IM 3+ 00:00:00 [facility] Influenza Virus 2016-05-16 Completed Universit y of Vaccine Quad IM 3+ 00:00:00 [facility] Influenza Virus 2016-05-16 Completed Universit y of Vaccine Quad IM 3+ 00:00:00 [facility] Influenza Virus 2016-05-16 Completed Universit y of Vaccine Quad IM 3+ 00:00:00 [facility] Influenza Virus 2016-05-16 Completed Universit y of Vaccine Quad IM 3+ 00:00:00 [facility] Influenza Virus 2016-05-16 Completed Universit y of Vaccine Quad IM 3+ 00:00:00 [facility] Influenza Virus 2016-05-16 Completed Universit y of Vaccine Quad IM 3+ 00:00:00 [facility] Influenza Virus 2016-05-16 Completed Universit y of Vaccine Quad IM 3+ 00:00:00 [facility] Influenza Virus 2016-05-16 Completed Universit y of Vaccine Quad IM 3+ 00:00:00 [facility] Influenza Virus 2016-05-16 Completed Universit y of Vaccine Quad IM 3+ 00:00:00 [facility] Influenza Virus 2016-05-16 Completed Universit y of Vaccine Quad IM 3+ 00:00:00 [facility] Influenza Virus 2016-05-16 Completed Universit y of Vaccine Quad IM 3+ 00:00:00 [facility] Influenza Virus 2016-05-16 Completed Universit y of Vaccine Quad IM 3+ 00:00:00 [facility] Influenza Virus 2016-05-16 Completed Universit y of Vaccine Quad IM 3+ 00:00:00 [facility] Influenza Virus 2016-05-16 Completed Universit y of Vaccine Quad IM 3+ 00:00:00 [facility] Influenza Virus 2016-05-16 Completed Universit y of Vaccine Quad IM 3+ 00:00:00 [facility] Influenza Virus 2016-05-16 Completed Universit y of Vaccine Quad IM 3+ 00:00:00 [facility] Influenza Virus 2016-05-16 Completed Universit y of Vaccine Quad IM 3+ 00:00:00 [facility] Influenza Virus 2016-05-16 Completed Universit y of Vaccine Quad IM 3+ 00:00:00 [facility] Influenza Virus 2016-05-16 Completed Universit y of Vaccine Quad IM 3+ 00:00:00 [facility] Influenza Virus 2016-05-16 Completed Universit y of Vaccine Quad IM 3+ 00:00:00 [facility] Influenza Virus 2016-05-16 Completed Universit y of Vaccine Quad IM 3+ 00:00:00 [facility] Influenza Virus 2016-05-16 Completed Universit y of Vaccine Quad IM 3+ 00:00:00 [facility] Influenza Virus 2016-05-16 Completed Universit y of Vaccine Quad IM 3+ 00:00:00 [facility] Influenza Virus 2016-05-16 Completed Universit y of Vaccine Quad IM 3+ 00:00:00 [facility] Influenza Virus 2016-05-16 Completed Universit y of Vaccine Quad IM 3+ 00:00:00 [facility] Influenza Virus 2016-05-16 Completed Universit y of Vaccine Quad IM 3+ 00:00:00 [facility] Influenza Virus 2016-05-16 Completed Universit y of Vaccine Quad IM 3+ 00:00:00 [facility] Influenza Virus 2016-05-16 Completed Universit y of Vaccine Quad IM 3+ 00:00:00 [facility] Influenza Virus 2016-05-16 Completed Universit y of Vaccine Quad IM 3+ 00:00:00 [facility] Influenza Virus 2016-05-16 Completed Universit y of Vaccine Quad IM 3+ 00:00:00 [facility] Influenza Virus 2016-05-16 Completed Universit y of Vaccine Quad IM 3+ 00:00:00 [facility] Influenza Virus 2016-05-16 Completed Universit y of Vaccine Quad IM 3+ 00:00:00 [facility] Influenza Virus 2016-05-16 Completed Universit y of Vaccine Quad IM 3+ 00:00:00 [facility] Influenza Virus 2016-05-16 Completed Universit y of Vaccine Quad IM 3+ 00:00:00 [facility] Influenza Virus 2016-05-16 Completed Universit y of Vaccine Quad IM 3+ 00:00:00 [facility] Influenza Virus 2016-05-16 Completed Universit y of Vaccine Quad IM 3+ 00:00:00 [facility] Influenza Virus 2016-05-16 Completed Universit y of Vaccine Quad IM 3+ 00:00:00 [facility] Influenza Virus 2016-05-16 Completed Universit y of Vaccine Quad IM 3+ 00:00:00 [facility] Influenza Virus 2016-05-16 Completed Universit y of Vaccine Quad IM 3+ 00:00:00 [facility] Influenza Virus 2016-05-16 Completed Universit y of Vaccine Quad IM 3+ 00:00:00 [facility] Influenza Virus 2016-05-16 Completed Universit y of Vaccine Quad IM 3+ 00:00:00 [facility] Influenza Virus 2016-05-16 Completed Universit y of Vaccine Quad IM 3+ 00:00:00 [facility] Influenza Virus 2016-05-16 Completed Universit y of Vaccine Quad IM 3+ 00:00:00 [facility] Influenza Virus 2016-05-16 Completed Universit y of Vaccine Quad IM 3+ 00:00:00 [facility] Influenza Virus 2016-05-16 Completed Universit y of Vaccine Quad IM 3+ 00:00:00 [facility] Influenza Virus 2016-05-16 Completed Universit y of Vaccine Quad IM 3+ 00:00:00 [facility] Influenza Virus 2016-05-16 Completed Universit y of Vaccine Quad IM 3+ 00:00:00 [facility] Influenza Virus 2016-05-16 Completed Universit y of Vaccine Quad IM 3+ 00:00:00 [facility] Influenza Virus 2016-05-16 Completed Universit y of Vaccine Quad IM 3+ 00:00:00 [facility] Influenza Virus 2016-05-16 Completed Universit y of Vaccine Quad IM 3+ 00:00:00 [facility] Influenza Virus 2016-05-16 Completed Universit y of Vaccine Quad IM 3+ 00:00:00 [facility] Influenza Virus 2016-05-16 Completed Universit y of Vaccine Quad IM 3+ 00:00:00 [facility] Influenza Virus 2016-05-16 Completed Universit y of Vaccine Quad IM 3+ 00:00:00 [facility] Influenza Virus 2016-05-16 Completed Universit y of Vaccine Quad IM 3+ 00:00:00 [facility] Influenza Virus 2016-05-16 Completed Universit y of Vaccine Quad IM 3+ 00:00:00 [facility] Influenza Virus 2016-05-16 Completed Universit y of Vaccine Quad IM 3+ 00:00:00 [facility] Influenza Virus 2016-05-16 Completed Universit y of Vaccine Quad IM 3+ 00:00:00 [facility] Influenza Virus 2016-05-16 Completed Universit y of Vaccine Quad IM 3+ 00:00:00 [facility] Influenza Virus 2016-05-16 Completed Universit y of Vaccine Quad IM 3+ 00:00:00 [facility] Influenza Virus 2016-05-16 Completed Universit y of Vaccine Quad IM 3+ 00:00:00 [facility] Vital Signs Vital Name Observation Time Observation Value Comments Source Systolic blood 2022-04-10 115 mm[Hg] University of pressure 05:05:13 [facility] Diastolic blood 2022-04-10 93 mm[Hg] University o f pressure 05:05:13 [facility] Heart rate 2022-04-10 87 /min [facility] 05:05:13 [facility] Respiratory rate 2022-04-10 15 /min [facility] 05:05:13 [facility] Oxygen saturation 2022-04-10 100 /min [facility] in Arterial blood 05:05:13 [facility] by Pulse oximetry [place] Body temperature 2022-04-10 36.61 Tasia [facility] 01:35:00 [facility] Body height 2022-04-10 185.4 cm University of 01:35:00 [facility] Body weight 2022-04-10 68.04 kg [facility] 01:35:00 [facility] BMI 2022-04-10 19.79 kg/m2 University of 01:35:00 [facility] Systolic blood 2022-04-08 86 mm[Hg] University of pressure 13:00:00 [facility] Diastolic blood 2022-04-08 75 mm[Hg] University o f pressure 13:00:00 [facility] Heart rate 2022-04-08 61 /min University of 13:00:00 [facility] Body temperature 2022-04-08 35.67 Tasia University of 13:00:00 [facility] Respiratory rate 2022-04-08 17 /min University of 13:00:00 [facility] Oxygen saturation 2022-04-08 95 /min University of in Arterial blood 13:00:00 [facility] mariusz by Pulse oximetry Branch Body weight 2022-04-06 72.984 kg University of 08:20:00 [facility] BMI 2022-04-06 21.23 kg/m2 University of 08:20:00 [facility] Body height 2022-04-02 185.4 cm University of 16:37:00 [facility] HEIGHT 2022-03-06 185.4 cm 12:05:00 WEIGHT 2022-03-06 65.772 kg 12:05:00 HEIGHT 2022-03-06 185.4 cm 12:05:00 WEIGHT 2022-03-06 65.772 kg 12:05:00 Systolic blood 2021-09-14 106 mm[Hg] University of pressure 03:17:00 [facility] Diastolic blood 2021-09-14 55 mm[Hg] University o f pressure 03:17:00 [facility] Heart rate 2021-09-14 86 /min University of 03:17:00 [facility] Body temperature 2021-09-14 36.89 Tasia University of 03:17:00 [facility] Respiratory rate 2021-09-14 18 /min University of 03:17:00 [facility] Oxygen saturation 2021-09-14 98 /min University of in Arterial blood 03:17:00 [facility] mariusz by Pulse oximetry Branch Systolic blood 2021-09-12 90 mm[Hg] University of pressure 22:20:[address] [facility] Branch Diastolic blood 2021-09-12 66 mm[Hg] University o f pressure 22:20:00 [facility] Heart rate 2021-09-12 97 /min University of 22:20:00 [facility] Body temperature 2021-09-12 36.61 Tasia University of 22:20:[address] [facility] Branch Respiratory rate 2021-09-12 16 /min University of 22:20:00 [facility] Oxygen saturation 2021-09-12 98 /min University of in Arterial blood 22:20:00 [place] Medi mariusz by Pulse oximetry Branch Body weight 2021-09-12 68.04 kg University of 20:25:00 [facility] BMI 2021-09-12 19.79 kg/m2 University of 20:25:00 [facility] Systolic blood 2021-09-12 103 mm[Hg] University of pressure 13:29:00 [facility] Diastolic blood 2021-09-12 67 mm[Hg] University o f pressure 13:29:00 [facility] Heart rate 2021-09-12 91 /min University of 13:29:00 [facility] Body temperature 2021-09-12 36.72 Tasia University of 13:29:00 [facility] Respiratory rate 2021-09-12 33 /min University of 13:29:00 [facility] Oxygen saturation 2021-09-12 98 /min [place] of in Arterial blood 13:29:00 [facility] by Pulse oximetry Branch Body weight 2021-09-12 68.04 kg University of 12:17:00 [facility] BMI 2021-09-12 19.79 kg/m2 University of 12:17:00 [facility] Systolic blood 2021-09-09 100 mm[Hg] University of pressure 04:59:00 [facility] Diastolic blood 2021-09-09 60 mm[Hg] University o f pressure 04:59:00 [facility] Heart rate 2021-09-09 85 /min [place] of 04:59:00 [facility] Body temperature 2021-09-09 36.5 Tasia University of 04:59:00 [facility] Respiratory rate 2021-09-09 16 /min [place] of 04:59:00 [facility] Body height 2021-09-09 185.4 cm University of 04:59:00 [facility] Body weight 2021-09-09 68.04 kg University of 04:59:00 [facility] BMI 2021-09-09 19.79 kg/m2 University of 04:59:00 [facility] Oxygen saturation 2021-09-09 98 /min [place] of in Arterial blood 04:59:00 [facility] by Pulse oximetry Branch Systolic blood 2021-09-08 129 mm[Hg] [facility] of pressure 05:42:00 [facility] Diastolic blood 2021-09-08 69 mm[Hg] [facility] o f pressure 05:42:00 [facility] Heart rate 2021-09-08 85 /min [facility] of 05:42:00 [facility] Respiratory rate 2021-09-08 17 /min [facility] of 05:42:00 [facility] Oxygen saturation 2021-09-08 98 /min [facility] of in Arterial blood 05:42:00 [facility] by Pulse oximetry Branch Body temperature 2021-09-08 37.44 Tasia [facility] of 01:22:00 [facility] Body weight 2021-09-08 68 kg University of :22:00 [facility] BMI 2021-09-08 19.78 kg/m2 University of 01:22:00 [facility] Systolic blood 2021-09-06 123 mm[Hg] [facility] of pressure 21:33:00 [facility] Diastolic blood 2021-09-06 65 mm[Hg] [facility] o f pressure 21:33:00 [facility] Heart rate 2021-09-06 91 /min [facility] of 21:33:00 [facility] Body temperature 2021-09-06 36.39 Tasia [facility] of 21:33:00 [facility] Respiratory rate 2021-09-06 18 /min [facility] of 21:33:00 [facility] Body weight 2021-09-06 68.04 kg University of 21:33:00 [facility] BMI 2021-09-06 19.79 kg/m2 University of 21:33:00 [facility] Oxygen saturation 2021-09-06 100 /min [facility] of in Arterial blood 21:33:00 [facility] by Pulse oximetry Branch Systolic blood 2021-09-05 99 mm[Hg] [facility] pressure 17:16:00 [facility] Diastolic blood 2021-09-05 62 mm[Hg] [facility] o f pressure 17:16:00 [facility] Heart rate 2021-09-05 78 /min [facility] of 17:16:00 [facility] Body temperature 2021-09-05 36.39 Tasia [facility] of 17:16:00 [facility] Respiratory rate 2021-09-05 17 /min [facility] of 17:16:00 [facility] Oxygen saturation 2021-09-05 95 /min [facility] of in Arterial blood 17:16:00 [facility] by Pulse oximetry Branch Body height 2021-08-31 185.4 cm University of 07:29:00 [facility] Body weight 2021-08-31 68.04 kg University of 07:29:00 [facility] BMI 2021-08-31 19.79 kg/m2 University of 07:29:00 [facility] Systolic blood 2021-09-03 111 mm[Hg] [facility] of pressure 15:59:[address] [facility] Diastolic blood 2021-09-03 65 mm[Hg] [facility] o f pressure 15:59:00 [facility] Heart rate 2021-09-03 75 /min [facility] of 15:59:00 [facility] Body temperature 2021-09-03 35.72 Tasia [facility] of 15:59:00 [facility] Respiratory rate 2021-09-03 18 /min [facility] of 15:59:00 [facility] Oxygen saturation 2021-09-03 100 /min [facility] of in Arterial blood 15:59:00 [facility] by Pulse oximetry Branch Body height 2021-08-31 185.4 cm University of 07:29:00 [facility] Body weight 2021-08-31 68.04 kg University of 07:29:00 [facility] BMI 2021-08-31 19.79 kg/m2 University of 07:29:00 [facility] Systolic blood 2021-08-29 111 mm[Hg] [facility] pressure 23:12:00 [facility] Diastolic blood 2021-08-29 73 mm[Hg] [facility] o f pressure 23:12:00 [facility] Heart rate 2021-08-29 95 /min [facility] of 23:12:00 [facility] Body temperature 2021-08-29 37 Tasia [facility] of 23:12:00 [facility] Respiratory rate 2021-08-29 18 /min [facility] of 23:12:00 [facility] Body weight 2021-08-29 68.04 kg University of 23:12:00 [facility] BMI 2021-08-29 19.79 kg/m2 University of 23:12:00 [facility] Oxygen saturation 2021-08-29 99 /min [facility] of in Arterial blood 23:12:00 [facility] by Pulse oximetry Branch Systolic blood 2021-08-05 92 mm[Hg] [facility] of pressure 10:56:00 [facility] Diastolic blood 2021-08-05 75 mm[Hg] [facility] o f pressure 10:56:00 [facility] Heart rate 2021-08-05 67 /min [facility] of 10:56:00 [facility] Body temperature 2021-08-05 36.22 Tasia [facility] of 10:56:00 [facility] Oxygen saturation 2021-08-05 93 /min [facility] of in Arterial blood 10:56:00 [facility] by Pulse oximetry Branch Respiratory rate 2021-08-05 16 /min [facility] of 06:24:00 [facility] Body height 2021-07-30 185.4 cm University of 09:49:00 [facility] Body weight 2021-07-30 65.772 kg University of 09:49:00 [facility] BMI 2021-07-30 19.13 kg/m2 University of 09:49:00 [facility] Systolic blood 2021-07-26 107 mm[Hg] [facility] of pressure 17:32:[address] [facility] Diastolic blood 2021-07-26 69 mm[Hg] [facility] o f pressure 17:32:00 [facility] Heart rate 2021-07-26 70 /min [facility] of 17:32:00 [facility] Body temperature 2021-07-26 36.39 Tasia [facility] of 17:32:00 [facility] Respiratory rate 2021-07-26 16 /min [facility] of 17:32:00 [facility] Oxygen saturation 2021-07-26 96 /min [facility] of in Arterial blood 17:32:00 [facility] by Pulse oximetry Branch Body height 2021-07-23 185.4 cm University of 08:40:00 [facility] Body weight 2021-07-23 84.5 kg University of 08:40:00 [facility] BMI 2021-07-23 24.58 kg/m2 University of 08:40:00 [facility] Systolic blood 2021-06-04 95 mm[Hg] [facility] of pressure 16:20:[address] [facility] Diastolic blood 2021-06-04 60 mm[Hg] [facility] o f pressure 16:20:00 [facility] Heart rate 2021-06-04 61 /min [facility] of 16:20:00 [facility] Body temperature 2021-06-04 36.17 Tasia [facility] of 16:20:[address] [facility] Respiratory rate 2021-06-04 18 /min [facility] of 16:20:00 [facility] Oxygen saturation 2021-06-04 100 /min [facility] of in Arterial blood 16:20:00 [facility] by Pulse oximetry [facility] Body weight 2021-06-01 65.772 kg University of 19:00:00 [facility] BMI 2021-06-01 19.13 kg/m2 University of 19:00:00 [facility] Body height 2021-05-31 185.4 cm University of 22:12:00 [facility] Systolic blood 2021-05-21 101 mm[Hg] [facility] pressure 20:21:[address] [facility] Diastolic blood 2021-05-21 68 mm[Hg] [facility] o f pressure 20:21:00 [facility] Heart rate 2021-05-21 74 /min [facility] of 20:21:00 [facility] Body temperature 2021-05-21 36.56 Tasia [facility] of 20:21:00 [facility] Respiratory rate 2021-05-21 18 /min [facility] of 20:21:00 [facility] Oxygen saturation 2021-05-21 99 /min [facility] of in Arterial blood 20:21:00 [facility] by Pulse oximetry Branch Body height 2021-05-21 185.4 cm University of 00:15:00 [facility] Body weight 2021-05-21 65.772 kg University of 00:15:00 [facility] BMI 2021-05-21 19.13 kg/m2 [facility] of 00:15:00 [facility] Systolic blood 2021-05-09 101 mm[Hg] [facility] of pressure 16:32:00 [facility] Diastolic blood 2021-05-09 70 mm[Hg] [facility] o f pressure 16:32:00 [facility] Heart rate 2021-05-09 69 /min [facility] of 16:32:00 [facility] Body temperature 2021-05-09 36.72 Tasia [facility] of 16:32:00 [facility] Respiratory rate 2021-05-09 16 /min [facility] of 16:32:00 [facility] Oxygen saturation 2021-05-09 99 /min [facility] of in Arterial blood 16:32:00 [facility] by Pulse oximetry [facility] Body height 2021-05-08 185.4 cm [facility] of 05:48:00 [facility] Body weight 2021-05-08 80.196 kg University of 05:48:00 [facility] BMI 2021-05-08 23.33 kg/m2 University of 05:48:00 [facility] Heart rate 2020-09-27 89 /min [facility] of 04:25:00 [facility] Respiratory rate 2020-09-27 20 /min [facility] of 04:25:00 [facility] Oxygen saturation 2020-09-27 99 /min [facility] of in Arterial blood 04:25:00 [facility] by Pulse oximetry Branch Systolic blood 2020-09-27 103 mm[Hg] [facility] pressure 04:02:00 [facility] Diastolic blood 2020-09-27 78 mm[Hg] [facility] o f pressure 04:02:00 [facility] Body temperature 2020-09-27 36.72 Tasia [facility] of 04:00:00 [facility] Body weight 2020-09-26 79.379 kg University of 22:35:00 [facility] BMI 2020-09-26 23.09 kg/m2 [facility] of 22:35:00 [facility] Systolic blood 2020-08-24 105 mm[Hg] [facility] pressure 17:24:00 [facility] Diastolic blood 2020-08-24 64 mm[Hg] [facility] o f pressure 17:24:00 [facility] Heart rate 2020-08-24 83 /min [facility] of 17:24:00 [facility] Body temperature 2020-08-24 36.56 Tasia [facility] of 17:24:00 [facility] Respiratory rate 2020-08-24 16 /min [facility] of 17:24:00 [facility] Oxygen saturation 2020-08-24 98 /min [facility] of in Arterial blood 17:24:00 [facility] by Pulse oximetry [place] Body height 2020-08-23 185.4 cm University of 03:19:00 [facility] Body weight 2020-08-23 79.379 kg University of 03:19:00 [facility] BMI 2020-08-23 23.09 kg/m2 [facility] of 03:19:00 [facility] Systolic blood 2020-07-10 126 mm[Hg] [facility] pressure 01:32:00 [facility] Diastolic blood 2020-07-10 67 mm[Hg] [facility] o f pressure 01:32:00 [facility] Heart rate 2020-07-10 92 /min University of :32:00 [facility] Body temperature 2020-07-10 37.17 Tasia University of :32:00 [facility] Respiratory rate 2020-07-10 16 /min University of :32:00 [facility] Oxygen saturation 2020-07-10 100 /min [facility] of in Arterial blood 01:32:00 [facility] by Pulse oximetry Branch Body height 2020-07-09 154.9 cm University of 22:23:00 [facility] Body weight 2020-07-09 68.04 kg University of 22:23:00 [facility] BMI 2020-07-09 28.34 kg/m2 [facility] of 22:23:00 [facility] Systolic blood 2020-06-05 106 mm[Hg] [facility] of pressure 15:00:[address] [facility] Diastolic blood 2020-06-05 72 mm[Hg] [facility] o f pressure 15:00:[address] [facility] Heart rate 2020-06-05 84 /min University of 15:00:[address] [facility] Respiratory rate 2020-06-05 18 /min [facility] of 15:00:[address] [facility] Oxygen saturation 2020-06-05 100 /min [facility] of in Arterial blood 15:00:00 [facility] by Pulse oximetry Branch Body temperature 2020-06-05 36.61 Tasia [facility] of 14:54:52 [facility] Body weight 2020-06-05 65.772 kg University of 11:48:00 [facility] BMI 2020-06-05 19.13 kg/m2 [facility] of 11:48:00 [facility] Systolic blood 2020-06-04 130 mm[Hg] [facility] pressure 18:30:[address] [facility] Diastolic blood 2020-06-04 84 mm[Hg] [facility] o f pressure 18:30:00 [facility] Heart rate 2020-06-04 72 /min [facility] of 18:30:00 [facility] Body temperature 2020-06-04 36.72 Tasia [facility] of 18:30:00 [facility] Respiratory rate 2020-06-04 16 /min [facility] of 18:30:00 [facility] Oxygen saturation 2020-06-04 98 /min [facility] of in Arterial blood 18:30:00 [facility] by Pulse oximetry Branch Systolic blood 2020-05-31 90 mm[Hg] [facility] pressure 19:59:[address] [facility] Diastolic blood 2020-05-31 59 mm[Hg] [facility] o f pressure 19:59:[address] [facility] Heart rate 2020-05-31 88 /min [facility] of 19:59:00 [facility] Body temperature 2020-05-31 36.78 Tasia [facility] of 19:59:[address] [facility] Respiratory rate 2020-05-31 16 /min [facility] of 19:59:[address] [facility] Oxygen saturation 2020-05-31 98 /min [facility] of in Arterial blood 19:59:00 [facility] by Pulse oximetry Branch Body height 2020-05-30 185.4 cm University of 18:29:00 [facility] Body weight 2020-05-30 69.5 kg weighed in bed University of 18:29:00 [facility] BMI 2020-05-30 20.21 kg/m2 [facility] of 18:29:00 [facility] Systolic blood 2020-05-22 100 mm[Hg] [facility] pressure 04:38:00 [facility] Diastolic blood 2020-05-22 71 mm[Hg] [facility] o f pressure 04:38:00 [facility] Heart rate 2020-05-22 90 /min [facility] of 04:38:00 [facility] Respiratory rate 2020-05-22 18 /min [facility] of 04:38:00 [facility] Oxygen saturation 2020-05-22 97 /min [facility] in Arterial blood 04:38:00 [facility] by Pulse oximetry Branch Body temperature 2020-05-22 36.83 Tasia [facility] of 02:02:11 [facility] Body height 2020-05-22 185.4 cm [facility] of 01:59:00 [facility] Body weight 2020-05-22 65.772 kg University of 01:59:00 [facility] BMI 2020-05-22 19.13 kg/m2 [facility] of 01:59:00 [facility] Systolic blood 2020-05-20 95 mm[Hg] [facility] pressure 18:33:34 [facility] Diastolic blood 2020-05-20 62 mm[Hg] [facility] o f pressure 18:33:34 [facility] Heart rate 2020-05-20 86 /min [facility] of 18:33:34 [facility] Respiratory rate 2020-05-20 20 /min [facility] of 18:33:34 [facility] Oxygen saturation 2020-05-20 98 /min [facility] of in Arterial blood 18:33:34 [facility] by Pulse oximetry Branch Body temperature 2020-05-20 37 Tasia [facility] of 12:02:00 [facility] Body weight 2020-05-20 65.8 kg University of 12:02:00 [facility] BMI 2020-05-20 19.14 kg/m2 [facility] of 12:02:00 [facility] Systolic blood 2020-05-20 101 mm[Hg] [facility] of pressure 10:58:00 [facility] Diastolic blood 2020-05-20 56 mm[Hg] [facility] o f pressure 10:58:00 [facility] Heart rate 2020-05-20 79 /min [facility] of 10:58:00 [facility] Body temperature 2020-05-20 37 Tasia [facility] of 10:58:[address] [facility] Respiratory rate 2020-05-20 16 /min [facility] of 10:58:00 [facility] Oxygen saturation 2020-05-20 99 /min [facility] of in Arterial blood 10:58:00 [facility] by Pulse oximetry Branch Body height 2020-05-20 185.4 cm University of 02:36:00 [facility] Body weight 2020-05-20 65.772 kg University of 02:36:00 [facility] BMI 2020-05-20 19.13 kg/m2 [facility] of 02:36:00 [facility] Systolic blood 2020-05-12 93 mm[Hg] [facility] pressure 17:02:00 [facility] Diastolic blood 2020-05-12 61 mm[Hg] [facility] o f pressure 17:02:00 [facility] Body temperature 2020-05-12 37.06 Tasia [facility] of 17:02:00 [facility] Heart rate 2020-05-12 74 /min [facility] of 09:00:00 [facility] Respiratory rate 2020-05-12 18 /min [facility] of 09:00:00 [facility] Oxygen saturation 2020-05-12 95 /min [facility] of in Arterial blood 09:00:00 [facility] by Pulse oximetry Branch Body height 2020-05-05 185.4 cm [facility] of 09:05:00 [facility] Body weight 2020-05-05 65.772 kg [facility] of 09:05:00 [facility] BMI 2020-05-05 19.13 kg/m2 [facility] of 09:05:00 [facility] Systolic blood 2020-05-03 107 mm[Hg] [facility] of pressure 04:30:00 [facility] Diastolic blood 2020-05-03 62 mm[Hg] [facility] o f pressure 04:30:00 [facility] Heart rate 2020-05-03 105 /min [facility] of 04:30:00 [facility] Body temperature 2020-05-03 37.22 Tasia [facility] of 04:30:00 [facility] Respiratory rate 2020-05-03 14 /min [facility] of 04:30:00 [facility] Body height 2020-05-03 185.4 cm [facility] of 04:30:00 [facility] Body weight 2020-05-03 65.772 kg [facility] of 04:30:00 [facility] BMI 2020-05-03 19.13 kg/m2 [facility] of 04:30:00 [facility] Systolic blood 2020-05-02 105 mm[Hg] [facility] pressure 12:46:00 [facility] Diastolic blood 2020-05-02 57 mm[Hg] [facility] o f pressure 12:46:00 [facility] Heart rate 2020-05-02 79 /min [facility] of 12:46:00 [facility] Body temperature 2020-05-02 36.28 Tasia [facility] of 12:46:00 [facility] Respiratory rate 2020-05-02 16 /min [facility] of 12:46:00 [facility] Oxygen saturation 2020-05-02 98 /min [facility] of in Arterial blood 12:46:00 [facility] by Pulse oximetry Branch Body height 2020-04-16 185.4 cm [facility] of 20:11:00 [facility] Body weight 2020-04-16 79.379 kg University of 20:11:00 [facility] BMI 2020-04-16 23.09 kg/m2 [facility] of 20:11:00 [facility] Respiratory rate 2020-04-06 12 /min [facility] of 16:20:00 [facility] Systolic blood 2020-03-28 125 mm[Hg] [facility] of pressure 16:00:00 [facility] Diastolic blood 2020-03-28 87 mm[Hg] [facility] o f pressure 16:00:00 [facility] Heart rate 2020-03-28 74 /min [facility] of 16:00:00 [facility] Body temperature 2020-03-28 36.44 Tasia [facility] of 16:00:00 [facility] Respiratory rate 2020-03-28 18 /min [facility] of 16:00:00 [facility] Oxygen saturation 2020-03-28 100 /min [facility] of in Arterial blood 16:00:00 [facility] by Pulse oximetry Branch Body height 2020-03-26 185.4 cm [facility] of 03:49:00 [facility] Body weight 2020-03-26 74.844 kg University of 03:49:00 [facility] BMI 2020-03-26 21.77 kg/m2 [facility] of 03:49:00 [facility] Systolic blood 2020-03-05 107 mm[Hg] [facility] of pressure 16:00:00 [facility] Diastolic blood 2020-03-05 67 mm[Hg] [facility] o f pressure 16:00:00 [facility] Heart rate 2020-03-05 56 /min [facility] of 16:00:00 [facility] Body temperature 2020-03-05 36.5 Tasia [facility] of 16:00:00 [facility] Respiratory rate 2020-03-05 18 /min [facility] of 16:00:00 [facility] Oxygen saturation 2020-03-05 100 /min [facility] of in Arterial blood 16:00:00 [facility] by Pulse oximetry [place] Body height 2020-03-03 185.4 cm University of 05:49:00 [facility] Body weight 2020-03-03 71.668 kg University of 05:49:00 [facility] BMI 2020-03-03 20.85 kg/m2 [facility] of 05:49:00 [facility] Systolic blood 2020-02-27 100 mm[Hg] [facility] of pressure 21:12:00 [facility] Diastolic blood 2020-02-27 74 mm[Hg] [facility] o f pressure 21:12:00 [facility] Heart rate 2020-02-27 90 /min [facility] of 21:12:00 [facility] Body temperature 2020-02-27 35.78 Tasia [facility] of 21:12:00 [facility] Respiratory rate 2020-02-27 19 /min [facility] of 21:12:00 [facility] Oxygen saturation 2020-02-27 99 /min [facility] of in Arterial blood 21:12:00 [facility] by Pulse oximetry [place] Body weight 2020-02-26 71.215 kg University of 23:05:00 [facility] BMI 2020-02-26 20.71 kg/m2 [facility] of 23:05:00 [facility] Systolic blood 2020-02-26 132 mm[Hg] [facility] of pressure 07:43:00 [facility] Diastolic blood 2020-02-26 71 mm[Hg] [facility] o f pressure 07:43:00 [facility] Heart rate 2020-02-26 82 /min [facility] of 07:43:00 [facility] Respiratory rate 2020-02-26 18 /min [facility] of 07:43:00 [facility] Oxygen saturation 2020-02-26 100 /min [facility] of in Arterial blood 07:43:00 [facility] by Pulse oximetry [place] Body temperature 2020-02-26 36.94 Tasia [facility] of 04:57:00 [facility] Body height 2020-02-26 185.4 cm University of 02:30:00 [facility] Body weight 2020-02-26 68.04 kg [facility] of 02:30:00 [facility] BMI 2020-02-26 19.79 kg/m2 [facility] of 02:30:00 [facility] Systolic blood 2020-02-05 100 mm[Hg] [facility] of pressure 16:00:[address] [facility] Diastolic blood 2020-02-05 61 mm[Hg] [facility] o f pressure 16:00:00 [facility] Heart rate 2020-02-05 60 /min [facility] of 16:00:00 [facility] Body temperature 2020-02-05 36.67 Tasia [facility] 16:00:00 [facility] Respiratory rate 2020-02-05 17 /min [facility] 16:[facility] [facility] Oxygen saturation 2020-02-05 98 /min University of in Arterial blood 16:00:00 [facility] mariusz by Pulse oximetry Branch Body height 2020-01-28 185.4 cm University of 23:13:00 [facility] Body weight 2020-01-28 68.04 kg University of 23:13:00 [facility] BMI 2020-01-28 19.79 kg/m2 University of 23:13:00 [facility] Systolic blood 2020-02-05 100 mm[Hg] University of pressure 16:00:00 [facility] Diastolic blood 2020-02-05 61 mm[Hg] University o f pressure 16:00:00 [facility] Heart rate 2020-02-05 60 /min University of 16:00:00 [facility] Body temperature 2020-02-05 36.67 Tasia University of 16:00:00 [facility] Respiratory rate 2020-02-05 17 /min University of 16:00:00 [facility] Oxygen saturation 2020-02-05 98 /min University of in Arterial blood 16:00:00 [facility] mariusz by Pulse oximetry [place] Body height 2020-01-28 185.4 cm University of 23:13:00 [facility] Body weight 2020-01-28 68.04 kg University of 23:13:00 [facility] BMI 2020-01-28 19.79 kg/m2 University of 23:13:00 [facility] Systolic blood 2020-01-27 114 mm[Hg] University of pressure 00:32:00 [facility] Diastolic blood 2020-01-27 66 mm[Hg] University o f pressure 00:32:00 [facility] Heart rate 2020-01-27 73 /min University of 00:32:00 [facility] Body temperature 2020-01-27 36.67 Tasia University of 00:32:[address] [facility] Respiratory rate 2020-01-27 18 /min University of 00:32:[address] [facility] Oxygen saturation 2020-01-27 97 /min [facility] in Arterial blood 00:32:00 [place] [facility] by Pulse oximetry Branch Body height 2020-01-24 185.4 cm University of 23:55:00 [facility] Body weight 2020-01-24 68.04 kg University of :55:[address] [facility] BMI 2020-01-24 19.79 kg/m2 University of 23:55:00 [facility] Systolic blood 2020-01-27 114 mm[Hg] University of pressure 00:32:[address] [facility] Diastolic blood 2020-01-27 66 mm[Hg] University o f pressure 00:32:00 [facility] Heart rate 2020-01-27 73 /min University of 00:32:00 [facility] Body temperature 2020-01-27 36.67 Tasia [place] of 00:32:00 [facility] Respiratory rate 2020-01-27 18 /min University of 00:32:00 [facility] Oxygen saturation 2020-01-27 97 /min University of in Arterial blood 00:32:00 [facility] by Pulse oximetry Branch Body height 2020-01-24 185.4 cm University of :55:00 [facility] Body weight 2020-01-24 68.04 kg University of :55:00 [facility] BMI 2020-01-24 19.79 kg/m2 University of :55:00 [facility] Body temperature 2019-12-13 36.72 Tasia [place] of 02:56:16 [facility] Systolic blood 2019-12-13 114 mm[Hg] University of pressure 01:57:00 [facility] Diastolic blood 2019-12-13 77 mm[Hg] University o f pressure 01:57:00 [facility] Heart rate 2019-12-13 75 /min University of :57:[address] [facility] Respiratory rate 2019-12-13 20 /min University of :57:00 [facility] Body height 2019-12-13 185.4 cm University of :57:00 [facility] Body weight 2019-12-13 68.04 kg University of :57:00 [facility] BMI 2019-12-13 19.79 kg/m2 University of :57:00 [facility] Oxygen saturation 2019-12-13 97 /min [facility] in Arterial blood 01:57:00 [facility] by Pulse oximetry [place] Body temperature 2019-12-13 36.72 Tasia [facility] 02:56:16 [facility] Systolic blood 2019-12-13 114 mm[Hg] [facility] pressure 01:57:00 [facility] Diastolic blood 2019-12-13 77 mm[Hg] [facility] pressure 01:57:00 [facility] Heart rate 2019-12-13 75 /min [facility] :57:00 [facility] Respiratory rate 2019-12-13 20 /min [facility] :57:00 [facility] Body height 2019-12-13 185.4 cm [facility] :57:00 [facility] Body weight 2019-12-13 68.04 kg [facility] :57:00 [facility] BMI 2019-12-13 19.79 kg/m2 [facility] :57:00 [facility] Oxygen saturation 2019-12-13 97 /min [facility] in Arterial blood 01:57:00 [facility] by Pulse oximetry [place] Procedures Procedure Date / Time Performing Clinician Source Performed COMP. METABOLIC PANEL 2022-04-10 03:54:00 [id number] CBC WITH DIFF 2022-04-10 03:49:00 Alvarez Guerra [facility] LIPASE 2022-04-10 03:07:00 Alvarez Guerra [facility] XR CHEST 2 VW 2022-04-10 02:59:18 Alvarez Guerra [facility] COVID-19 (ID NOW RAPID 2022-04-10 02:43:00 Alvarez Guerra [facility] TESTING) Medical Branch PHOSPHORUS 2022-04-08 10:26:00 Shelia Lemus [facility] MAGNESIUM 2022-04-08 10:26:00 Kurt [facility] 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 PANEL (NA, 2022-04-08 10:26:00 [facility], CL, CO2, GLUCOSE, BUN, Medica l Branch CREATININE, CA) CBC WITH DIFF 2022-04-08 10:26:00 Kurt [facility] PHOSPHORUS 2022-04-07 09:45:00 [facility] MAGNESIUM 2022-04-07 09:45:00 [facility] 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 PANEL (NA, 2022-04-07 09:45:00 [facility] [place] K, CL, CO2, GLUCOSE, BUN, Medica l Branch CREATININE, CA) LACTIC ACID WHOLE BLOOD 2022-04-06 09:05:00 Kurt [facility] MAGNESIUM 2022-04-06 09:04:00 Kurt [facility] 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 PANEL (NA, 2022-04-06 09:04:00 [facility] K, CL, CO2, GLUCOSE, BUN, Medica l Branch CREATININE, CA) CBC WITH DIFF 2022-04-06 09:04:00 Kurt [facility] 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 PANEL (NA, 2022-04-05 08:12:00 Agatha Noonan [facility] [place] K, CL, CO2, GLUCOSE, BUN, Medica l Branch CREATININE, CA) ACUTE CARE VENOUS BLOOD 2022-04-05 08:12:00 Octavio Macario [facility] CBC WITH DIFF 2022-04-05 08:12:00 [facility] 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 PANEL (NA, 2022-04-04 09:03:00 [facility] K, CL, CO2, GLUCOSE, BUN, Medica l Branch CREATININE, CA) US RETROPERITONEAL LIMITED 2022-04-03 23:10:49 Octavio Macario [facility] ACUTE CARE VENOUS BLOOD 2022-04-03 18:33:00 Octavio Macario [facility] OSMOLALITY URINE 2022-04-03 17:59:00 Amirah [facility] 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 PANEL (NA, 2022-04-03 17:59:00 [facility] K, CL, CO2, GLUCOSE, BUN, Medica l Branch CREATININE, CA) CREATININE, URINE RANDOM 2022-04-03 17:59:00 Octavio Macario [facility] POTASSIUM, URINE RANDOM 2022-04-03 17:59:00 [facility] URINE RANDOM 2022-04-03 17:59:00 Amirah [facility] MAGNESIUM 2022-04-03 09:29:00 [facility]SM[facility]ALITY, SERUM OR 2022-04-03 09:29[facility] 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 PANEL (NA, 2022-04-03 09:29:00 Juventino [facility] K, CL, CO2, GLUCOSE, BUN, Medica l Branch CREATININE, CA) CBC WITH DIFF 2022-04-03 09:29:00 William [facility] CLOSTRIDIUM DIFFICILE 2022-04-03 03:44:00 William Juventino [facility] TOXIN [facility] LACTIC ACID WHOLE BLOOD 2022-04-03 03:38:00 William [facility] LACTIC ACID WHOLE BLOOD 2022-04-03 00:07:00 William [facility] URINE CULTURE 2022-04-02 22:39:00 Aguila [facility] CT ABDOMEN PELVIS WO 2022-04-02 21:07:00 Rekha Sheehan [facility] CONTRAST [facility] LIPASE 2022-04-02 20:00:00 Aguila [facility] TROPONIN I 2022-04-02 20:00:00 Aguila [facility] HEPATIC FUNCTION PANEL 2022-04-02 20:00:00 Rekha Sheehan [facility] ([id number]) (ALB,T.PRO,BILI Medical Branch T,BU/BC,ALT,AST,ALK PHOS) 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 PANEL (NA, 2022-04-02 20:00:00 Rekha [facility] K, CL, CO2, GLUCOSE, BUN, Medica l [place] CREATININE, CA) URINALYSIS 2022-04-02 20:00:00 Rekha Sheehan [facility] CBC WITH DIFF 2022-04-02 18:20:00 Aguila [facility] COVID-19 (ID NOW RAPID 2022-04-02 18:20:00 Rekha Sheehan [facility] TESTING) Medical Branch LAB ONLY COVID 2022-04-02 18:20:00 Aguila [facility] INTERPRETATION [facility] XR CHEST 2 VW 2022-04-02 17:29:13 Aguila [facility] HB ECG ROUTINE & RHYTHM 2022-04-02 16:32:43 Rekha Sheehan [facility] STRIP [facility] CONSENT/REFUSAL FOR 2022-04-02 16:29:46 Doctor Unassigned, [facility] DIAGNOSIS AND TREATMENT [place] [facility] COMP. METABOLIC PANEL 2021-09-14 03:41:00 Mickey Aguirre [facility] ([id number]) [facility] CBC WITH DIFF 2021-09-14 03:41:00 Mickey Aguirre [facility] CT HEAD WO CONTRAST 2021-09-12 14:10:00 Odin [facility] TROPONIN I 2021-09-12 13:00:00 Odin [facility] 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 PANEL (NA, 2021-09-12 13:00:00 Odin [facility] K, CL, CO2, GLUCOSE, BUN, Medica l Branch CREATININE, CA) CBC WITH DIFF 2021-09-12 13:00:00 Odin [facility] N-TERMINAL PRO-BNP 2021-09-12 13:00:00 Alona [facility]by [facility] LIPASE 2021-09-09 05:30:00 Sebastian Pacheco [facility] COMP. METABOLIC PANEL 2021-09-09 05:30:00 Sebastian Pacheco [facility] ([id number]) [facility] CBC WITH DIFF 2021-09-09 05:30:00 Sebastian Pacheco [facility] URINALYSIS 2021-09-08 04:45:00 Sebastian Pacheco [facility] CT ABDOMEN PELVIS W 2021-09-08 02:25:23 Sebastian Pacheco [facility] CONTRAST [facility] LIPASE 2021-09-08 02:02:00 Sebastian Pacheco [facility] COMP. METABOLIC PANEL 2021-09-08 02:02:00 Sebastian Pacheco [facility] ([id number]) Medical Branch CBC WITH DIFF 2021-09-08 02:02:00 Sebastian Pacheco [facility] LACTIC ACID WHOLE BLOOD 2021-09-08 02:02:00 Sebastian Pacheco [facility] COVID-19 (ID NOW RAPID 2021-09-08 01:54:00 Sebastian Pacheco [facility] TESTING) Medical Branch 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 PANEL (NA, 2021-09-04 12:30:00 Demario Godoy [facility] K, CL, CO2, GLUCOSE, BUN, Medica l Branch CREATININE, CA) 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 PANEL (NA, 2021-09-04 12:30:00 Demario Godoy [facility] K, CL, CO2, GLUCOSE, BUN, Medica l Branch CREATININE, CA) SURGICAL PATHOLOGY EXAM 2021-09-03 14:01:00 Mayela [facility] COLOSTOMY REVISION 2021-09-03 12:58:00 Mayela [facility] COLOSTOMY REVISION 2021-09-03 12:58:00 Mayela [facility] 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 PANEL (NA, 2021-09-03 11:26:00 Cynthia [facility]iddiqi [facility] K, CL, CO2, GLUCOSE, BUN, Medica l Branch CREATININE, CA) CBC WITHOUT DIFF 2021-09-03 11:26:00 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 PANEL (NA, 2021-09-03 11:26:00 Cynthai [facility]i [facility] K, CL, CO2, GLUCOSE, BUN, Medica l Branch CREATININE, CA) CBC WITHOUT DIFF 2021-09-03 11:26:00 [facility] TRAN[facility] ECHO (TTE) 2021-09-02 21:22:12 Siddiqi, Cynthia [facility] [place] COMPLETE W/ CONTRAST [facility] TRANSTHORACIC ECHO (TTE) 2021-09-02 21:22:12 Siddiqi, Cynthia [facility] [place] COMPLETE W/ CONTRAST Medical [facility] COVID-19 (ID NOW RAPID 2021-09-02 19:35:00 Demario [facility] TESTING) Medical Branch LAB ONLY COVID 2021-09-02 19:35:00 Demario Godoy [facility] INTERPRETATION Medical Branch COVID-19 (ID NOW RAPID 2021-09-02 19:35:00 Demario [facility] TEST[facility]) Medical Branch LAB ONLY COVID 2021-09-02 19:35:00 Demario Godoy [facility] 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 PANEL (NA, 2021-09-02 10:40:00 Siddiqi, Cynthia [facility] [place] K, CL, CO2, GLUCOSE, BUN, Medica l Branch CREATININE, CA) 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 PANEL (NA, 2021-09-02 10:40:00 Siddiqi, Cynthia [facility] [place] K, CL, CO2, GLUCOSE, BUN, Medica l Branch CREATININE, CA) 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 PANEL (NA, 2021-09-01 21:20:00 Siddiqi, Cynthia [facility] [place] K, CL, CO2, GLUCOSE, BUN, Medica l Branch CREATININE, CA) 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 PANEL (NA, 2021-09-01 21:20:00 Siddiqi, Cynthia [facility] [place] K, CL, CO2, GLUCOSE, BUN, Medica l Branch CREATININE, CA) BLOOD CULTURE SCREEN 2021-09-01 08:03:00 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 PANEL (NA, 2021-09-01 08:03:00 Siddiqi, Cynthia [facility] [place] K, CL, CO2, GLUCOSE, BUN, Medica l Branch CREATININE, CA) CBC WITH DIFF 2021-09-01 08:03:00 Neeru [facility] BLOOD CULTURE SCREEN 2021-09-01 08:03:00 Chasity [facility] 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 PANEL (NA, 2021-09-01 08:03:00 Siddiqi, [facility] K, CL, CO2, GLUCOSE, BUN, Medica l Branch CREATININE, CA) CBC WITH DIFF 2021-09-01 08:03:00 Neeru, [facility] MAGNESIUM 2021-09-01 02:09:00 [facility] 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 PANEL (NA, 2021-09-01 02:09:00 Roberto [facility] K, CL, CO2, GLUCOSE, BUN, Arpita Medica l Branch CREATININE, CA) MAGNESIUM 2021-09-01 02:09:00 [facility] 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 PANEL (NA, 2021-09-01 02:09:00 Roberto [facility] K, CL, CO2, GLUCOSE, BUN, Arpita Medica l Branch CREATININE, CA) LACTIC ACID WHOLE BLOOD 2021-08-31 12:40:00 Siddiqi, [facility] LACTIC ACID WHOLE BLOOD 2021-08-31 12:40:00 [facility] 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 PANEL (NA, 2021-08-31 11:44:00 Gaspar, [facility] [place] K, CL, CO2, GLUCOSE, BUN, Medica l Branch CREATININE, CA) 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 PANEL (NA, 2021-08-31 11:44:00 Gaspar, [facility] [place] K, CL, CO2, GLUCOSE, BUN, Medica l Branch CREATININE, CA) 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 PANEL (NA, 2021-08-31 06:29:00 Gaspar, Roland [facility] [place] K, CL, CO2, GLUCOSE, BUN, Medica l Branch CREATININE, CA) LACTIC ACID WHOLE BLOOD 2021-08-31 06:29:00 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 PANEL (NA, 2021-08-31 06:29:00 Gaspar, [facility] [place] K, CL, CO2, GLUCOSE, BUN, Medica l Branch CREATININE, CA) LACTIC ACID WHOLE BLOOD 2021-08-31 06:29:00 [facility] 2021-08-31 06:28:00 Chasity [facility] BLOOD CULTURE WORKUP 2021-08-31 06:28:00 Chasity [facility] GRAM POSITIVE BLOOD 2021-08-31 06:28:00 Chasity [facility] PATHOGENS DNA [facility] PROBE-AEROBIC BLOOD CULTURE SCREEN 2021-08-31 06:28:00 Chasity [facility] BLOOD CULTURE WORKUP 2021-08-31 06:28:00 Chasity [facility] GRAM POSITIVE BLOOD 2021-08-31 06:28:00 Chasity [facility] PATHOGENS DNA [facility] PROBE-AEROBIC XR CHEST 2 VW 2021-08-31 03:08:00 [facility]W 2021-08-31 03:08:00 Riccardo [facility] OSMOLALITY, SERUM OR 2021-08-31 02:44:00 [facility] 2021-08-31 02:44:00 Riccardo [facility] THYROID STIMULATING 2021-08-31 02:44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EL (NA, 2021-08-31 02:44:00 Riccardo [facility] K, CL, CO2, GLUCOSE, BUN, Mer[place] [facility] [place] CREATININE, CA) OSMOLALITY, SERUM OR 2021-08-31 [facility]:44[facility] 2021-08-31 02:44:00 Riccardo [facility] THYROID STIMULATING 2021-08-31 02:44:00 [facility] 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 PANEL (NA, 2021-08-31 02:44:00 [facility], CO2, GLUCOSE, BUN, [facility] [place] CREATININE, CA) OSMOLALITY URINE 2021-08-31 00:08:00 Chasity [facility] URINALYSIS 2021-08-31 00:08:00 [facility] URINE RANDOM 2021-08-31 00:08:00 Gaspar [facility] CHLORIDE, URINE RANDOM 2021-08-31 00:08:00 Chasity [facility] OSMOLALITY URINE 2021-08-31 00:08:00 Gaspar [facility] URINALYSIS 2021-08-31 00:08:00 [facility], URINE RANDOM 2021-08-31 00:08:00 Gaspar [facility] CHLORIDE, URINE RANDOM 2021-08-31 00:08:00 Chasity [facility] TROPONIN I 2021-08-30 23:27:00 Riccardo [facility] COMP. METABOLIC PANEL 2021-08-30 23:27:00 Riccardo [facility] ([id number]) [facility] CBC WITH DIFF 2021-08-30 23:27:00 Riccardo [facility] N-TERMINAL PRO-BNP 2021-08-30 23:27:00 Gayatri Gu [facility] TROPONIN I 2021-08-30 23:27:00 Riccardo [facility] COMP. METABOLIC PANEL 2021-08-30 23:27:00 Riccardo [facility] ([id number]) [facility] CBC WITH DIFF 2021-08-30 23:27:00 Riccardo [facility] N-TERMINAL PRO-BNP 2021-08-30 23:27:00 Gayatri Gu [facility] HB ECG ROUTINE & RHYTHM 2021-08-30 23:04:48 Gayatri Gu Un [facility] HB ECG ROUTINE & RHYTHM 2021-08-30 23:04:48 Gayatri Gu Un [facility] XR CHEST 1 VW 2021-08-30 00:31:51 Alvarez Guerra [facility] POCT RAPID STREP SCREEN 2021-08-30 00:24:00 Alvarez Guerra [facility] FOR GROUP A [facility] GALV ONLY - INFLUENZA A B 2021-08-30 00:15:00 Alvarez Guerra [facility] RSV PCR Medical Branch COVID-19 (MOLECULAR 2021-08-30 00:15:00 Alvarez Guerra [facility] TESTING [facility] NUCLEIC ACID AMPLIFICATION) PREALBUMIN, SERUM 2021-08-05 10:46:00 Cesar [facility] PHOSPHORUS 2021-08-05 10:46:00 Cesar [facility] ALBUMIN 2021-08-05 10:46:00 Cesar [facility] MAGNESIUM 2021-08-05 10:46:00 Cesar [facility] 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 PANEL (NA, 2021-08-05 10:46:00 Jessica Guerrero [facility] K, CL, CO2, GLUCOSE, BUN, Medica l Branch CREATININE, CA) CBC WITH DIFF 2021-08-05 10:46:00 Cesar [facility] COVID-19 (ID NOW RAPID 2021-08-05 00:29:00 Jessica Guerrero [facility]) Medical Branch PHOSPHORUS 2021-08-04 11:37:00 Hakeem Jo [facility] MAGNESIUM 2021-08-04 11:37:00 Hakeem Jo [facility] 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 PANEL (NA, 2021-08-04 11:37:00 Beau Benedict [facility] K, CL, CO2, GLUCOSE, BUN, [place] [facility]ica [facility] CREATININE, CA) CBC WITH DIFF 2021-08-04 11:37:00 Hakeem Jo [facility] PHOSPHORUS 2021-08-03 10:36:00 Hakeem Jo [facility] MAGNESIUM 2021-08-03 10:36:00 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 (NA, 2021-08-03 10:36:00 Hakeem Jo [facility] [place] K, CL, CO2, GLUCOSE, BUN, [place] [facility] CREATININE, CA) CBC WITH DIFF 2021-08-03 10:36:00 Hakeem Jo [facility] PHOSPHORUS 2021-08-02 10:53:00 Hakeem Jo [facility] MAGNESIUM 2021-08-02 10:53:00 [facility] 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 PANEL (NA, 2021-08-02 10:53:00 Hakeem Jo, [facility] [place] K, CL, CO2, GLUCOSE, BUN, [place] [facility] CREATININE, CA) CBC WITH DIFF 2021-08-02 10:53:00 Hakeem Jo [facility] PHOSPHORUS 2021-08-01 10:03:00 Hakeem Jo [facility] MAGNESIUM 2021-08-01 10:03:00 [facility] 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 PANEL (NA, 2021-08-01 10:03:00 Beau [facility] [place] K, CL, CO2, GLUCOSE, BUN, [place] [facility] CREATININE, CA) CBC WITH DIFF 2021-08-01 10:03:00 [facility] PREALBUMIN, SERUM 2021-07-31 10:22:00 [facility] PHOSPHORUS 2021-07-31 10:22:00 [facility]UM 2021-07-31 10:22:00 [facility] 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 PANEL (NA, 2021-07-31 10:22:00 Beau Benedict [facility] K, CL, CO2, GLUCOSE, BUN, [place] [facility] CREATININE, CA) CBC WITH DIFF 2021-07-31 10:22:00 Hakeem Jo [facility] COVID-19 (ID NOW RAPID 2021-07-30 06:13:00 Jonah Rees [facility] TESTING) Medical Branch LAB ONLY COVID 2021-07-30 06:13:00 Jonah Rees [facility] INTERPRETATION [facility] CT ABDOMEN PELVIS W 2021-07-30 05:19:01 Jonah Rees [facility] CONTRAST [facility] COMP. METABOLIC PANEL 2021-07-30 03:25:00 Jonah Rees [facility] ([id number]) [facility] LACTIC ACID WHOLE BLOOD 2021-07-30 02:53:00 NegritaJonah escoto [facility] LIPASE 2021-07-30 02:52:00 NegritaJonah escoto [facility] CBC WITH DIFF 2021-07-30 02:52:00 NegritaJonah escoto [facility] CONSENT/REFUSAL FOR 2021-07-30 02:09:09 Doctor Unassigned, [facility] DIAGNOSIS AND TREATMENT [place] [facility] PHOSPHORUS 2021-07-26 12:30:00 [facility]ino [facility] MAGNESIUM 2021-07-26 12:30:00 Antonino [facility] 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 PANEL (NA, 2021-07-26 12:30:00 Antonino jin [facility] K, CL, CO2, GLUCOSE, BUN, [place], [place] [facility] CREATININE, CA) CBC WITH DIFF 2021-07-26 12:30:00 Antonino [facility] PHOSPHORUS 2021-07-25 11:32:00 Hakeem Jo [facility] MAGNESIUM 2021-07-25 11:32:00 Hakeem Jo [facility] 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 PANEL (NA, 2021-07-25 11:32:00 Antonino Dietrich de [facility] [place] K, CL, CO2, GLUCOSE, BUN, [place], [place] [facility] CREATININE, CA) CBC WITH DIFF 2021-07-25 11:32:00 Antonino jin [facility] CBC WITH DIFF 2021-07-25 04:13:00 Cesar, [facility] PHOSPHORUS 2021-07-24 12:18:00 Cesar, [facility] MAGNESIUM 2021-07-24 12:18:00 Cesar, [facility] 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 PANEL (NA, 2021-07-24 12:18:00 Cesar, Jessica [facility] [place] K, CL, CO2, GLUCOSE, BUN, Medica l Branch CREATININE, CA) COVID-19 (ID NOW RAPID 2021-07-23 15:23:00 Flaco Lmeus [facility] TESTING) Medical Branch LAB ONLY COVID 2021-07-23 15:23:00 Flaco Lemus [facility] INTERPRETATION [facility] URINALYSIS 2021-07-23 12:49:00 Hakeem Jo [facility] PHOSPHORUS 2021-07-23 12:42:00 Hakeem Jo [facility] MAGNESIUM 2021-07-23 12:42:00 Hakeem Jo [facility] 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 PANEL (NA, 2021-07-23 12:42:00 Beau Benedict niversity of [place] K, CL, CO2, GLUCOSE, BUN, [place] [facility] CREATININE, CA) CBC WITH DIFF 2021-07-23 12:42:00 Hakeem Jo [facility] CT ABDOMEN PELVIS WO 2021-07-23 08:55:17 Flaco Lemus [facility] CONTRAST Medical Branch EXTERNAL PROVIDER RECORDS 2021-06-25 05:01:00 Doctor Unassigned, [facility] [place] [facility] 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 PANEL (NA, 2021-06-03 10:37:00 Shweta Anderson [facility] K, CL, CO2, GLUCOSE, BUN, Medica l Branch CREATININE, CA) 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 PANEL (NA, 2021-06-02 10:54:00 Shweta Anderson [facility] K, CL, CO2, GLUCOSE, BUN, Medica l Branch CREATININE, CA) CLOSTRIDIUM DIFFICILE 2021-06-01 22:51:[address] [facility] TOXIN [facility] FECAL PATHOGENS BY PCR 2021-06-01 22:51:00 JordonWilfrid [facility] 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 PANEL (NA, 2021-06-01 15:42:00 Shweta Anderson [facility] K, CL, CO2, GLUCOSE, BUN, Medica l Branch CREATININE, CA) LACTIC ACID WHOLE BLOOD 2021-06-01 05:38:00 Clementine Castellon [facility] CT ABDOMEN PELVIS W 2021-05-31 23:25:45 Willie Garrett [facility] CONTRAST [facility] Branch LIPASE 2021-05-31 22:44:00 Willie Garrett [facility] TROPONIN I 2021-05-31 22:44:00 Willie Garrett [facility] COMP. METABOLIC PANEL 2021-05-31 22:44:00 Willie Garrett [facility] ([id number]) Medical Branch CBC WITH DIFF 2021-05-31 22:44:00 Willie Garrett [facility] COVID-19 (ID NOW RAPID 2021-05-31 22:44:00 Willie Garrett [facility] TESTING) [facility] Branch LAB ONLY COVID 2021-05-31 22:44:00 Willie Garrett [facility] INTERPRETATION [facility] PHOSPHORUS 2021-05-21 09:03:00 Jessica Guerrero [facility] MAGNESIUM 2021-05-21 09:03:00 Ceasr [facility] 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 PANEL (NA, 2021-05-21 09:03:00 Agatha [facility] K, CL, CO2, GLUCOSE, BUN, Medica l Branch CREATININE, CA) CBC WITH DIFF 2021-05-21 09:03:00 Noonan, Agatha [facility] XR KUB 2021-05-20 20:02:49 Andrzej [facility] LIPASE 2021-05-20 20:00:00 Andrzej [facility] COMP. METABOLIC PANEL 2021-05-20 20:00:00 Bernardo Donnelly [facility] ([id number]) Medical Branch CBC WITH DIFF 2021-05-20 20:00:00 Andrzej [facility] LACTIC ACID WHOLE BLOOD 2021-05-20 20:00:00 Andrzej [facility] COVID-19 (ID NOW RAPID 2021-05-20 20:00:00 Andrzej [facility] TESTING) Medical Branch 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 PANEL (NA, 2021-05-08 10:04:00 Irene Laughlin [facility] K, CL, CO2, GLUCOSE, BUN, Medica l Branch CREATININE, CA) CBC WITH DIFF 2021-05-08 10:04:00 Irene Laughlin [facility] XR KUB 2021-05-08 09:44:22 Beto [facility] XR ABDOMEN 1 VW 2021-05-08 05:32:36 Irene Laughlin [facility] CT ABDOMEN PELVIS W 2021-05-08 01:08:43 Beto [facility] CONTRAST [facility] Branch HEPATIC FUNCTION PANEL 2021-05-08 00:49:00 Beto [facility] ([id number]) (ALB,T.PRO,BILI Medical Branch T,BU/BC,ALT,AST,ALK PHOS) 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 PANEL (NA, 2021-05-08 00:49:00 Alona [facility] K, CL, CO2, GLUCOSE, BUN, Medica l Branch CREATININE, CA) CBC WITH DIFF 2021-05-08 00:49:00 Beto [facility] COVID-19 (ID NOW RAPID 2021-05-08 00:42:00 Beto [facility] TESTING) Medical Branch LAB ONLY COVID 2021-05-08 00:42:00 Beto [facility] INTERPRETATION Medical Branch NOTICE OF PRIVACY 2020-09-27 01:47:31 Doctor Unassigned, [facility] PRACTICES [place] [facility] [place] CONSENT/REFUSAL FOR 2020-09-27 01:47:01 Doctor Unassigned, [facility] DIAGNOSIS AND TREATMENT [place] [facility] [place] 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 PANEL (NA, 2020-08-23 10:03:00 Judith Ingram [facility] K, CL, CO2, GLUCOSE, BUN, Medica l Branch CREATININE, CA) CBC WITHOUT DIFF 2020-08-23 10:03:00 Judith Ingram [facility] COVID-19 (ID NOW RAPID 2020-08-23 00:23:00 Funmilayo Pinzon [facility] TESTING) Medical [place] HB ECG ROUTINE & RHYTHM 2020-08-22 22:19:37 Funmilayo [facility]zon [facility] STRIP [facility] HEPATIC FUNCTION PANEL 2020-08-22 22:08:00 Funmilayo Pinzon [facility] ([id number]) (ALB,T.PRO,BILI Medical Branch T,BU/BC,ALT,AST,ALK PHOS) 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 PANEL (NA, 2020-08-22 22:08:00 Nallely Pinzon [facility] K, CL, CO2, GLUCOSE, BUN, Medica l Branch CREATININE, CA) CBC WITH DIFF 2020-08-22 22:08:00 Funmilayo Pinzon [facility] CT SOFT TISSUE NECK W 2020-07-10 00:21:10 Juan M Castaneda [facility] CONTRAST [facility] URINALYSIS 2020-07-09 23:07:00 Juan M Castaneda [facility] 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 PANEL (NA, 2020-07-09 22:51:00 Kirk Castaneda [facility] K, CL, CO2, GLUCOSE, BUN, Medica l Branch CREATININE, CA) CBC WITH DIFF 2020-07-09 22:51:00 Juan M Castaneda [facility] RAPID STREP SCREEN FOR 2020-07-09 22:51:00 Juan M Castaneda [facility] GROUP A Medical Branch COVID-19 (ID NOW RAPID 2020-07-09 22:51:00 Juan M Castaneda [facility] [place] TESTING) Medical Branch CT ABDOMEN PELVIS W 2020-06-05 13:02:55 Travis Valdez [facility] CONTRAST [facility] URINALYSIS 2020-06-05 13:02:00 More Goetz [facility] EKG-12 LEAD 2020-06-05 11:57:46 More Goetz [facility] LIPASE 2020-06-05 11:57:00 More Goetz [facility] TROPONIN I 2020-06-05 11:57:00 More Goetz [facility] HEPATIC FUNCTION PANEL 2020-06-05 11:57:00 More Goetz [facility] ([id number]) (ALB,T.PRO,BILI [facility] T,BU/BC,ALT,AST,ALK PHOS) 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 PANEL (NA, 2020-06-05 11:57:00 More Goetz [facility] K, CL, CO2, GLUCOSE, BUN, Medica l Branch CREATININE, CA) CBC WITH DIFF 2020-06-05 11:57:00 More Goetz [facility] LACTIC ACID WHOLE BLOOD 2020-06-05 11:57:00 [facility] PH[facility] 2020-05-31 07:54:00 Katia Gomez [facility] MAGNESIUM 2020-05-31 07:54:00 Katia Gomez [facility] 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 PANEL (NA, 2020-05-31 07:54:00 Katia Gomez [facility] K, CL, CO2, GLUCOSE, BUN, Medica l Branch CREATININE, CA) CBC WITH DIFF 2020-05-31 07:54:00 Katia Gomez [facility] IR CHANGE OF ABSCESS DRAIN 2020-05-30 19:33:43 Ahswin [facility] PHOSPHORUS 2020-05-30 08:19:00 Socorro Gonzales [facility] MAGNESIUM 2020-05-30 08:19:00 Socorro Gonzales [facility] 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 PANEL (NA, 2020-05-30 08:19:00 Lambreton Carlos a, [facility] [place] K, CL, CO2, GLUCOSE, BUN, Rex [facility]ica [facility] CREATININE, CA) PHOSPHORUS 2020-05-29 06:43:00 Lambreton Gonzales, [facility] MAGNESIUM 2020-05-29 06:43:00 Lambreton Gonzales, [facility] 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 PANEL (NA, 2020-05-29 06:43:00 Lambreton Carlos a, [facility] [place] K, CL, CO2, GLUCOSE, BUN, [facility] CREATININE, CA) PHOSPHORUS 2020-05-28 09:08:00 Lambreton Gonzales, [facility] MAGNESIUM 2020-05-28 09:08:00 Lambreton Gonzales, [facility] 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 PANEL (NA, 2020-05-28 09:08:00 Lambreton Carlos a, [facility] K, CL, CO2, GLUCOSE, BUN, [facility] CREATININE, CA) PHOSPHORUS 2020-05-27 09:33:00 Lambreton Gonzales, [facility] MAGNESIUM 2020-05-27 09:33:00 Lambreton Gonzales, [facility] 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 PANEL (NA, 2020-05-27 09:33:00 Lambreton Carlos a, [facility] K, CL, CO2, GLUCOSE, BUN, [facility] CREATININE, CA) PHOSPHORUS 2020-05-26 09:27:00 Lambreton Gonzales, [facility] MAGNESIUM 2020-05-26 09:27:00 Lambreton Gonzales, [facility] 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 PANEL (NA, 2020-05-26 09:27:00 Lambreton Carlos a, [facility] [place] K, CL, CO2, GLUCOSE, BUN, [facility] CREATININE, CA) PHOSPHORUS 2020-05-25 21:42:00 Lambreton Gonzales, [facility] MAGNESIUM 2020-05-25 21:42:00 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 PANEL (NA, 2020-05-25 21:42:00 Lambangeloon Carlos a, [facility] [place] K, CL, CO2, GLUCOSE, BUN, [facility] CREATININE, CA) CBC WITH DIFF 2020-05-25 21:42:00 [facility]UB 2020-05-25 20:39:54 Lambreton Gonzales, [facility] PHOSPHORUS 2020-05-25 08:48:00 Lambreton Gonzales, [facility] MAGNESIUM 2020-05-25 08:48:00 [facility] 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 PANEL (NA, 2020-05-25 08:48:00 Lambangeloon Carlos a, [facility] [place] K, CL, CO2, GLUCOSE, BUN, Rex [facility] CREATININE, CA) PHOSPHORUS 2020-05-24 20:41:00 Lambreton Gonzales, [facility] MAGNESIUM 2020-05-24 20:41:00 [facility] 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 PANEL (NA, 2020-05-24 20:41:00 Lambangeloon Carlos a, [facility] [place] K, CL, CO2, GLUCOSE, BUN, Rex [facility] CREATININE, CA) IR CHANGE OF ABSCESS DRAIN 2020-05-24 17:57:11 Vance [facility] IR ASPIRATION ABSCESS 2020-05-24 17:24:40 Randa [facility] BULLA OR CYST BY NEEDLE [facility] ASPIRATE OR ABSCESS 2020-05-24 17:23:00 Nixon Prince [facility] CULTURE(AEROBIC/ANAEROBIC) Medic wa Branch CBC WITH DIFF 2020-05-24 11:08:00 Alondra Fay [facility] PELVIS W 2020-05-23 15:02:24 Julio Tolentino [facility] CONTRAST [facility] 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 PANEL (NA, 2020-05-23 09:45:00 Alondra Fay [facility] K, CL, CO2, GLUCOSE, BUN, Anahi Medica [facility] CREATININE, CA) COVID-19 (PCR MOLECULAR 2020-05-23 06:53:00 Bia Pedro [facility] TESTING) Medical Branch URINALYSIS 2020-05-22 21:41:00 Alvarenga, [facility] LIPASE 2020-05-22 21:26:00 Alvarenga, [facility] HEPATIC FUNCTION PANEL 2020-05-22 21:26:00 Alvarenga, Vageri [facility] ([id number]) (ALB,T.PRO,BILI [facility] T,BU/BC,ALT,AST,ALK PHOS) 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 PANEL (NA, 2020-05-22 21:26:00 [facility], CL, CO2, GLUCOSE, BUN, Medica l Branch CREATININE, CA) CBC WITH DIFF 2020-05-22 21:26:00 Alvarenga, [facility] PROTHROMBIN TIME / INR 2020-05-22 21:26:00 Alvarenga, Vageri [facility] ACTIVATED PARTIAL THRMPLAS 2020-05-22 21:26:00 Alvarenga, Vageri [facility] XR CHEST 1 VW 2020-05-22 20:55:00 Alvarenga, [facility] HOSPITAL ADMISSION 2020-05-22 05:01:00 Doctor Unassigned, [facility] [place] [facility] URINALYSIS 2020-05-20 09:58:00 Jonah Heredia [facility] COVID-19 (ID NOW RAPID 2020-05-20 09:48:00 Jonah Heredia [facility] TESTING) Medical Branch CT ABDOMEN PELVIS W 2020-05-20 04:07:43 Jonah Heredia [facility] CONTRAST [facility] LIPASE 2020-05-20 03:09:00 Jonah Heredia [facility] MAGNESIUM 2020-05-20 03:09:00 [facility] TROPONIN I 2020-05-20 03:09:00 [facility] COMP. METABOLIC PANEL 2020-05-20 03:09:00 Michael [facility] ([id number]) Medical Branch CBC WITH DIFF 2020-05-20 03:09:00 [facility] [place] [facility] 2020-05-10 09:13:00 Randa [facility] MAGNESIUM 2020-05-10 09:13:00 [facility] 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 PANEL (NA, 2020-05-10 09:13:00 Kerr, [facility] K, CL, CO2, GLUCOSE, BUN, Medica l Branch CREATININE, CA) CBC WITH DIFF 2020-05-10 09:13:00 [facility] 2020-05-09 10:28:00 [facility] MAGNESIUM 2020-05-09 10:28:00 [facility] 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 PANEL (NA, 2020-05-09 10:28:00 Randa, [facility] [place] K, CL, CO2, GLUCOSE, BUN, Medica l Branch CREATININE, CA) CBC WITH DIFF 2020-05-09 10:28:00 Randa [facility] PHOSPHORUS 2020-05-08 11:18:00 [facility] MAG[facility] 2020-05-08 11:18:00 [facility] 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 PANEL (NA, 2020-05-08 11:18:00 Kerr, [facility] [place] K, CL, CO2, GLUCOSE, BUN, Medica l Branch CREATININE, CA) CBC WITH DIFF 2020-05-08 11:18:00 [facility] PHOS[facility]US 2020-05-07 09:21:00 [facility] MAGNESIUM 2020-05-07 09:21:00 [facility] 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 PANEL (NA, 2020-05-07 09:21:00 Kerr, [facility] K, CL, CO2, GLUCOSE, BUN, Medica l Branch CREATININE, CA) CBC WITH DIFF 2020-05-07 09:21:00 [facility] PHOS[facility] 2020-05-06 09:57:00 [facility] MAGNESIUM 2020-05-06 09:57:00 [facility] 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 PANEL (NA, 2020-05-06 09:57:00 [facility] K, CL, CO2, GLUCOSE, BUN, Medica l Branch CREATININE, CA) CBC WITH DIFF 2020-05-06 09:56:00 [facility] IR DRAINAGE BY CATHETER 2020-05-05 19:55:00 [facility] Medical Branch RETROPERITONEAL BODY FLUID 2020-05-05 19:06:00 Nixon [facility] CULTURE(AEROBIC/ANAEROBIC) [facility] FUNGUS (ROUTINE) CULTURE 2020-05-05 19:06:00 Suresh Nixon [facility] BODY FLUID 2020-05-05 19:00:[address] [facility] CULTURE(AEROBIC/ANAEROBIC) [facility] FUNGUS (ROUTINE) CULTURE 2020-05-05 19:00:00 Ivan Guthrie [facility] PREPARE PACKED RBC 2020-05-05 15:59:33 [facility]ING 2020-05-05 10:55:00 [facility] PREALBUMIN, SERUM 2020-05-05 08:56:00 [facility] 2020-05-05 08:56:00 [facility] MAGNESIUM 2020-05-05 08:56:00 [facility] 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 PANEL (NA, 2020-05-05 08:56:00 Randa [facility] K, CL, CO2, GLUCOSE, BUN, Medica l Branch CREATININE, CA) CBC WITH DIFF 2020-05-05 08:56:00 [facility] URINALYSIS 2020-05-05 05:11:00 Lora Hall [facility] CT ABDOMEN PELVIS W 2020-05-05 04:18:56 Lora Hall [facility] LIPASE 2020-05-05 02:35:00 Lora Hall [facility] COMP. METABOLIC PANEL 2020-05-05 02:35:00 [facility] ([id number]) [facility] CBC WITH DIFF 2020-05-05 02:35:00 Lora Hall [facility] COVID-19 (ID NOW RAPID 2020-05-05 02:27:00 Lora Hall [facility] TESTING) Medical Branch HOSPITAL ADMISSION 2020-05-04 05:01:00 Doctor Unassigned, [facility] [place] [facility] CBC WITH DIFF 2020-05-01 11:32:00 [facility] PHOS[facility]US 2020-05-01 11:32:00 [facility] MAGNESIUM 2020-05-01 11:32:00 [facility] 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 PANEL (NA, 2020-05-01 11:32:00 Randa [facility] K, CL, CO2, GLUCOSE, BUN, Medica l Branch CREATININE, CA) CBC WITH DIFF 2020-04-29 11:31:00 [facility] PHOS[facility]US 2020-04-29 11:31:00 [facility] MAGNESIUM 2020-04-29 11:31:00 [facility] 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 PANEL (NA, 2020-04-29 11:31:00 Randa [facility] K, CL, CO2, GLUCOSE, BUN, Medica l Branch CREATININE, CA) CBC WITH DIFF 2020-04-28 08:51:00 Becky, [facility] MAGNESIUM 2020-04-28 08:51:00 Becky, [facility] 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 PANEL (NA, 2020-04-28 08:51:00 Becky, [facility] K, CL, CO2, GLUCOSE, BUN, Cathryn Medica l Branch CREATININE, CA) CBC WITH DIFF 2020-04-27 09:34:00 Becky, [facility] MAGNESIUM 2020-04-27 09:34:00 Becky, [facility] 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 PANEL (NA, 2020-04-27 09:34:00 Becky, [facility] K, CL, CO2, GLUCOSE, BUN, Cathryn [facility] CREATININE, CA) CBC WITH DIFF 2020-04-26 09:27:00 Becky, [facility] MAGNESIUM 2020-04-26 09:27:00 Becky, [facility] 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 PANEL (NA, 2020-04-26 09:27:00 Becky, [facility] K, CL, CO2, GLUCOSE, BUN, Cathryn [facility] CREATININE, CA) CBC WITH DIFF 2020-04-25 08:59:00 Becky, [facility] MAGNESIUM 2020-04-25 08:59:00 Becky, [facility] 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 PANEL (NA, 2020-04-25 08:59:00 Becky, [facility] K, CL, CO2, GLUCOSE, BUN, Cathryn [facility] CREATININE, CA) CBC WITH DIFF 2020-04-24 09:44:00 Becky, [facility] MAGNESIUM 2020-04-24 09:44:00 Becky, [facility] 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 PANEL (NA, 2020-04-24 09:44:00 Becky, [facility] K, CL, CO2, GLUCOSE, BUN, Cathryn [facility] CREATININE, CA) CT ABDOMEN PELVIS W 2020-04-23 23:24:02 Grant Cheema, [facility] CONTRAST [facility] CT THORAX W CONTRAST 2020-04-23 23:24:02 Grant Cheema, [facility] COVID-19 (ID NOW RAPID 2020-04-23 15:06:00 [facility] PREALBUMIN, SERUM 2020-04-23 13:42:00 Grant Cheema [facility] POTASSIUM SERUM 2020-04-23 13:42:00 Becky [facility] CBC WITH DIFF 2020-04-23 10:17:00 Becky, [facility] MAGNESIUM 2020-04-23 10:17:00 Becky, [facility] 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 PANEL (NA, 2020-04-23 10:17:00 Becky, [facility] K, CL, CO2, GLUCOSE, BUN, Cathryn [facility] CREATININE, CA) XR CHEST 1 VW 2020-04-23 10:03:00 Becky, [facility] MAGNESIUM 2020-04-22 10:37:00 Becky, [facility] 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 PANEL (NA, 2020-04-22 10:37:00 Becky, [facility] K, CL, CO2, GLUCOSE, BUN, Cathryn [facility] CREATININE, CA) CBC WITH DIFF 2020-04-22 10:30:00 Becky, [facility] XR CHEST 1 VW 2020-04-22 07:30:00 Becky, [facility] CBC WITH DIFF 2020-04-21 13:09:00 Becky, [facility] MAGNESIUM 2020-04-21 13:09:00 Becky, [facility] 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 PANEL (NA, 2020-04-21 13:09:00 Becky, [facility] K, CL, CO2, GLUCOSE, BUN, [facility] [place] [facility] CREATININE, CA) XR CHEST 1 VW 2020-04-21 06:41:[address] [facility] XR CHEST 1 VW 2020-04-20 11:03:[address] [facility] CBC WITH DIFF 2020-04-20 09:45:00 Katrina [facility] PREALBUMIN, SERUM 2020-04-20 09:45:00 Grant Cheema [facility] PHOSPHORUS 2020-04-20 09:45:00 Carola [facility] MAGNESIUM 2020-04-20 09:45:00 Katrina [facility] 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 PANEL (NA, 2020-04-20 09:45:00 Yosvany Herndon [facility] [place] K, CL, CO2, GLUCOSE, BUN, Medica l Branch CREATININE, CA) XR CHEST 1 2020-04-19 10:13:45 Becky [facility] CBC WITH DIFF 2020-04-19 10:10:00 Katrina [facility] PHOSPHORUS 2020-04-19 10:10:00 Carola [facility] MAGNESIUM 2020-04-19 10:10:00 Katrina [facility] 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 PANEL (NA, 2020-04-19 10:10:00 Yosvany Herndon [facility] [place] K, CL, CO2, GLUCOSE, BUN, Medica l Branch CREATININE, CA) XR CHEST 1 2020-04-18 11:01:00 Becky [facility] CBC WITH DIFF 2020-04-18 10:19:00 Katrina [facility] PHOSPHORUS 2020-04-18 10:19:00 Carola [facility] MAGNESIUM 2020-04-18 10:19:00 Katrina [facility] 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 PANEL (NA, 2020-04-18 10:19:00 Yosvany Herndon [facility] [place] K, CL, CO2, GLUCOSE, BUN, Medica l Branch CREATININE, CA) XR CHEST 1 2020-04-17 18:58:00 Becky [facility] CBC WITH DIFF 2020-04-17 09:33:00 Katrina [facility] PHOSPHORUS 2020-04-17 09:33:00 Carola [facility] MAGNESIUM 2020-04-17 09:33:00 Katrina [facility] 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 PANEL (NA, 2020-04-17 09:33:00 Yosvany Herndon [facility] [place] K, CL, CO2, GLUCOSE, BUN, Medica l Branch CREATININE, CA) XR CHEST 1 2020-04-17 08:52:[address] [facility] XR CHEST 1 VW 2020-04-16 23:45:00 [facility] BODY FLUID 2020-04-16 21:50:00 Rivera [facility] CULTURE(AEROBIC/ANAEROBIC) [facility] FUNGUS (ROUTINE) CULTURE 2020-04-16 21:50:00 Vance Stafford [facility] CYTO PLEURAL FLUID 2020-04-16 21:50:00 Rivera [facility] LDH TOTAL BODY FLUID 2020-04-16 21:50:00 Rivera [facility] AMYLASE BODY FLUID 2020-04-16 21:50:00 Rivera [facility] GLUCOSE BODY FLUID 2020-04-16 21:50:00 Rivera [facility] PH, BODY FLUID 2020-04-16 21:50:00 [facility] T.PROTEIN BODY FLUID 2020-04-16 21:50:00 Rivera Vance [facility] BODY FLUID DIRECT COUNT 2020-04-16 21:50:00 Jamie Staffordalan [facility] IR PLEURAL DRAINAGE WITH 2020-04-16 21:36:25 [facility] TUBE WITH IMAGING [facility] PROTHROMBIN TIME / INR 2020-04-16 16:07:00 Rosaura Pena [facility] CBC WITH DIFF 2020-04-16 10:07:00 Yosvany Herndon [facility] PHOSPHORUS 2020-04-16 10:07:00 Sabi Srivastava [facility] MAGNESIUM 2020-04-16 10:07:00 [facility] 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 PANEL (NA, 2020-04-16 10:07:00 Yosvany Herndon [facility] K, CL, CO2, GLUCOSE, BUN, Medica l Branch CREATININE, CA) CT ABDOMEN PELVIS W 2020-04-16 07:02:21 Grant Cheema [facility] CONTRAST [facility] CBC WITH DIFF 2020-04-15 10:02:00 Katrina [facility] PHOSPHORUS 2020-04-15 10:02:00 Carola [facility] MAGNESIUM 2020-04-15 10:02:00 Katrina [facility] 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 PANEL (NA, 2020-04-15 10:02:00 Katrina [facility] K, CL, CO2, GLUCOSE, BUN, Medica l Branch CREATININE, CA) CBC WITH DIFF 2020-04-14 10:26:00 Katrina [facility] PHOSPHORUS 2020-04-14 10:26:00 Carola [facility] MAGNESIUM 2020-04-14 10:26:00 Katrina [facility] 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 PANEL (NA, 2020-04-14 10:26:00 Katrina [facility] K, CL, CO2, GLUCOSE, BUN, Medica l Branch CREATININE, CA) 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 PANEL (NA, 2020-04-13 23:53:00 Grant Santana i, [facility] K, CL, CO2, GLUCOSE, BUN, Danny Medica l Branch CREATININE, CA) CBC WITHOUT DIFF 2020-04-13 23:53:[address] [facility] IR DRAINAGE BY CATHETER 2020-04-13 20:35:08 Grant Cheema, [facility] PERITONEAL OR [facility] RETROPERITONEAL BODY FLUID 2020-04-13 20:05:00 Neris Grier [facility] CULTURE(AEROBIC/ANAEROBIC) Medic al Branch [facility] TOTAL BODY FLUID 2020-04-13 20:05:00 Grant Cheema, Uni [facility] GLUCOSE BODY FLUID 2020-04-13 20:05:00 Grant Cheema, [facility] B[facility] FLUID 2020-04-13 20:05:00 Grant Cheema, Uni [facility] BODY FLUID DIRECT COUNT 2020-04-13 20:05:00 [facility] CBC WITH DIFF 2020-04-13 10:44:00 Katrina [facility] PHOSPHORUS 2020-04-13 10:44:00 Carola [facility] MAGNESIUM 2020-04-13 10:44:00 [facility] 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 PANEL (NA, 2020-04-13 10:44:00 Yosvany Herndon [facility] K, CL, CO2, GLUCOSE, BUN, Medica l Branch CREATININE, CA) CT ABDOMEN PELVIS W 2020-04-12 21:23:19 [facility] 2020-04-12 20:43:00 Becky [facility] URINE CULTURE 2020-04-12 20:43:00 Becky [facility] BLOOD CULTURE WORKUP 2020-04-12 18:51:00 Becky [facility] GRAM NEGATIVE BLOOD 2020-04-12 18:51:00 Rosaura Pena [facility] PATHOGENS DNA [facility] PROBE-ANAEROBIC BLOOD CULTURE SCREEN 2020-04-12 18:51:00 Becky [facility] BLOOD CULTURE SCREEN 2020-04-12 18:50:00 Rosaura Pena [facility] CBC WITH DIFF 2020-04-12 08:46:00 [facility] PHOSPHORUS 2020-04-12 08:46:00 [facility] MAGNESIUM 2020-04-12 08:46:00 [facility] 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 PANEL (NA, 2020-04-12 08:46:00 Yosvany Herndon [facility] K, CL, CO2, GLUCOSE, BUN, Medica l Branch CREATININE, CA) CBC WITH DIFF 2020-04-11 08:54:00 [facility] PHOSPHORUS 2020-04-11 08:54:00 Carola [facility] MAGNESIUM 2020-04-11 08:54:00 [facility] 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 PANEL (NA, 2020-04-11 08:54:00 [facility]don [facility] K, CL, CO2, GLUCOSE, BUN, Medica l Branch CREATININE, CA) CBC WITH DIFF 2020-04-10 09:49:00 [facility] PHOSPHORUS 2020-04-10 09:49:00 [facility] MAGNESIUM 2020-04-10 09:49:00 [facility] XR CHEST 1 VW 2020-04-09 11:27:[address] [facility] CBC WITH DIFF 2020-04-09 09:07:00 [facility] PHOSPHORUS 2020-04-09 09:07:00 [facility] MAGNESIUM 2020-04-09 09:07:00 [facility] 2020-04-09 09:07:00 [facility] ([id number]) (ALB,T.PRO,[facility] T,BU/BC,ALT,AST,ALK PHOS) 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 PANEL (NA, 2020-04-09 09:07:00 Yosvany Herndon [facility] K, CL, CO2, GLUCOSE, BUN, Medica l Branch CREATININE, CA) AC PANEL 20 + LACTIC ACID 2020-04-08 21:11:00 [facility] PO[facility] GLUCOSE (AUTOMATED) 2020-04-08 12:27:00 Bia Pedro [facility] AC PANEL 21 + LACTIC ACID 2020-04-08 09:34:00 [facility]g [facility] PO[facility] GLU[facility]SE (AUTOMATED) 2020-04-08 09:33:00 Bia Pedro [facility] CBC WITH DIFF 2020-04-08 09:26:00 [facility] MAGNESIUM 2020-04-08 09:26:00 [facility] 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 PANEL (NA, 2020-04-08 09:26:00 Yosvany Herndon [facility] K, CL, CO2, GLUCOSE, BUN, Medica l Branch CREATININE, CA) POCT GLUCOSE (AUTOMATED) 2020-04-08 04:24:00 LeonardkGriffina Uni [facility] POCT GLUCOSE (AUTOMATED) 2020-04-08 00:36:00 Phadmitrik, Bia Uni [facility] POCT GLUCOSE (AUTOMATED) 2020-04-07 21:24:00 PhatakBia [facility] POCT GLUCOSE (AUTOMATED) 2020-04-07 16:49:00 Bia Pedro [facility] AC PANEL 20 + LACTIC ACID 2020-04-07 14:14:00 [facility] LACTIC ACID WHOLE BLOOD 2020-04-07 13:53:00 [facility] POCT GLUCOSE (AUTOMATED) 2020-04-07 12:50:00 Bia Pedro [facility] AC PANEL 20 + LACTIC ACID 2020-04-07 11:16:00 Yosvany Herndon [facility] MAGNESIUM 2020-04-07 08:48:00 [facility] 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 PANEL (NA, 2020-04-07 08:48:00 [facility] K, CL, CO2, GLUCOSE, BUN, Medica l Branch CREATININE, CA) CBC WITH DIFF 2020-04-07 08:48:00 [facility] XR CHEST 1 VW 2020-04-07 08:10:00 Rosaura Pena [facility] POCT GLUCOSE (AUTOMATED) 2020-04-07 04:36:00 Bia Pedro [facility] AC PANEL 21 + LACTIC ACID 2020-04-07 02:05:00 Bigg Lawton [facility] MRSA / MSSA SCREEN BY PCR, 2020-04-07 02:05:00 Grant Santana i [facility] BLOOD CULTURE SCREEN 2020-04-07 02:05:00 Grant Cheema [facility] POCT GLUCOSE (AUTOMATED) 2020-04-07 00:37:00 Bia Pedro [facility] HCV ANTIBODY 2020-04-06 23:44:[address] [facility] POCT GLUCOSE (AUTOMATED) 2020-04-06 23:43:00 Bia Pedro [facility] HIV 1/2 AG-AB WITH REFLEX 2020-04-06 23:30:00 Grant Cheema [facility] POCT GLUCOSE (AUTOMATED) 2020-04-06 22:14:00 Bia Pedro [facility] ECHO ROUTINE W/DOPPLER 2020-04-06 20:25:55 Katrina [facility] PROTHROMBIN TIME / INR 2020-04-06 19:00:00 Becky [facility] ACTIVATED PARTIAL THRMPLAS 2020-04-06 19:00:00 Becky [facility] MAGNESIUM 2020-04-06 19:00:00 Becky [facility] 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 PANEL (NA, 2020-04-06 19:00:00 [facility] K, CL, CO2, GLUCOSE, BUN, [facility] CREATININE, CA) COMP. METABOLIC PANEL 2020-04-06 19:00:00 Yosvany Herndon [id number] CBC WITH DIFF 2020-04-06 19:00:00 [facility] AC PANEL 21 + LACTIC ACID 2020-04-06 18:59:00 Simi [facility] ABG+COOX+NA+K+GLU+CA2+ 2020-04-06 16:06:00 Bia Pedro [facility] INTUBATION 2020-04-06 16:04:59 Ana Syed [facility] XR CHEST 1 VW 2020-04-06 15:43:00 [facility] SURGICAL PATHOLOGY EXAM 2020-04-06 15:12:00 [facility], [facility] CENTRAL LINE 2020-04-06 14:52:37 Cynthia Herring [facility] ARTERIAL LINE 2020-04-06 14:51:44 Ana Syed [facility] ASPIRATE OR ABSCESS 2020-04-06 14:50:29 Person, [facility] CULTURE(AEROBIC/ANAEROBIC) Medic al Branch [employer] CULTURE 2020-04-06 14:50:29 Person, [facility] FUNGUS (ROUTINE) CULTURE 2020-04-06 14:50:29 Person, [facility] ABG+COOX+NA+K+GLU+CA2+ 2020-04-06 14:46:00 Bia Pedro [facility] HB ABO GROUPING 2020-04-06 14:39:00 Dana Sampson [facility] EXPLORATORY LAPAROTOMY 2020-04-06 13:51:00 Person, [facility] URINE CULTURE 2020-04-06 13:48:[address] [facility] XR KUB 2020-04-06 13:34:[address] [facility] XR CHEST 1 VW 2020-04-06 13:34:[address] [facility] MAGNESIUM 2020-04-06 11:47:00 Becky [facility] 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 PANEL (NA, 2020-04-06 11:47:00 Becky [facility] K, CL, CO2, GLUCOSE, BUN, [facility] [place] CREATININE, CA) CBC WITH DIFF 2020-04-06 11:47:00 Becky [facility] XR KUB 2020-04-05 21:34:[address] [facility] XR KUB 2020-04-05 19:41:[address] [facility] MAGNESIUM 2020-04-05 09:44:00 Becky [facility] 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 PANEL (NA, 2020-04-05 09:44:00 Becky [facility] K, CL, CO2, GLUCOSE, BUN, Cathryn Medica l Branch CREATININE, CA) CBC WITH DIFF 2020-04-05 09:44:00 Becky [facility] MAGNESIUM 2020-04-04 10:09:00 Becky [facility] 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 PANEL (NA, 2020-04-04 10:09:00 Becky [facility] K, CL, CO2, GLUCOSE, BUN, Cathryn Medica l Branch CREATININE, CA) CBC WITH DIFF 2020-04-04 10:09:00 Becky [facility] SURGICAL PATHOLOGY EXAM 2020-04-03 20:13:00 Mayela [facility] LAPAROSCOPIC COLECTOMY 2020-04-03 15:35:00 Mayela [facility] COLONOSCOPY 2020-04-03 15:35:00 Phataoctavia [facility] COLECTOMY 2020-04-03 15:35:00 Phataoctavia [facility] MAGNESIUM 2020-04-03 09:20:00 Becky [facility] 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 PANEL (NA, 2020-04-03 09:20:00 Becky [facility] K, CL, CO2, GLUCOSE, BUN, Cathryn Medica l Branch CREATININE, CA) CBC WITH DIFF 2020-04-03 09:20:00 Becky [facility] HB ABO GROUPING 2020-04-02 22:45:00 Hugo Alfaro [facility] MAGNESIUM 2020-04-02 10:22:00 Becky [facility] 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 PANEL (NA, 2020-04-02 10:22:00 Becky [facility] K, CL, CO2, GLUCOSE, BUN, Cathryn Medica l Branch CREATININE, CA) CBC WITH DIFF 2020-04-02 10:22:00 Becky [facility] COVID-19 (ID NOW RAPID 2020-04-01 23:02:00 Rosaura Pena [facility] TESTING) [facility] URINALYSIS 2020-03-31 11:25:00 Colette Vageri [facility] CT ABDOMEN PELVIS W 2020-03-31 00:17:06 Alex Alvarenga [facility] CONTRAST Medical Branch XR CHEST 1 VW 2020-03-30 22:43:49 Alex Alvarenga [facility] EKG-12 LEAD 2020-03-30 22:14:24 Doctor Unassigned, [facility] Name Medical [place] PROTHROMBIN TIME / INR 2020-03-30 22:05:00 Alex Alvarenga [facility] ACTIVATED PARTIAL THRMPLAS 2020-03-30 22:05:00 Alex Alvarenga [facility] N-TERMINAL PRO-BNP 2020-03-30 22:05:00 Alex Alvarenga [facility] LIPASE 2020-03-30 22:05:00 Alex Alvarenga [facility] TROPONIN I 2020-03-30 22:05:00 Colette Vageri [facility] HEPATIC FUNCTION PANEL 2020-03-30 22:05:00 Alex Alvarenga [facility] ([id number]) (ALB,T.PRO,BILI Medical Branch T,BU/BC,ALT,AST,ALK PHOS) 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 PANEL (NA, 2020-03-30 22:05:00 [facility] K, CL, CO2, GLUCOSE, BUN, Medica l Branch CREATININE, CA) CBC WITH DIFF 2020-03-30 22:05:00 Alex Alvarenga [facility] EKG-12 LEAD 2020-03-30 22:01:44 Alex Alvarenga [facility] HOSPITAL ADMISSION 2020-03-30 05:01:00 Doctor Unassigned, [facility] Name Medical Branch MAGNESIUM 2020-03-26 09:57:00 [facility] 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 PANEL (NA, 2020-03-26 09:57:00 [facility], CL, CO2, GLUCOSE, BUN, Medica l Branch CREATININE, CA) CBC WITH DIFF 2020-03-26 09:57:00 Simin [facility] LACTIC ACID WHOLE BLOOD 2020-03-26 04:09:00 Sarah Duval [facility] COVID-19 (ID NOW RAPID 2020-03-26 02:01:00 Bernardo Donnelly [facility] TESTING) Medical Branch CT ABDOMEN PELVIS W 2020-03-26 01:17:18 Bernardo Donnelly [facility] CONTRAST [facility] PHOSPHORUS 2020-03-26 00:39:00 Simin [facility] MAGNESIUM 2020-03-26 00:39:00 Simin [facility] HEPATIC FUNCTION PANEL 2020-03-26 00:39:00 Bernardo Donnelly [facility] ([id number]) (ALB,T.PRO,BILI [facility] T,BU/BC,ALT,AST,ALK PHOS) 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 PANEL (NA, 2020-03-26 00:39:00 Bernardo [facility]ly [facility] K, CL, CO2, GLUCOSE, BUN, Medica l Branch CREATININE, CA) CBC WITH DIFF 2020-03-26 00:39:00 Bernardo Donnelly [place] [facility] EXTRA TUBE LT. BLUE 2020-03-26 00:39:00 eBrnardo Donnelly [facility] HOSPITAL ADMISSION 2020-03-25 05:01:00 Doctor Unassigned, [facility] [place] [facility] Branch PROTHROMBIN TIME / INR 2020-03-03 04:27:00 Ori Persaud [facility] ACTIVATED PARTIAL THRMPLAS 2020-03-03 04:27:00 Zahraa Persaud se [facility] XR ABDOMEN ACUTE SERIES 2020-03-03 02:15:00 Sabi Begum [facility] PHOSPHORUS 2020-03-03 01:22:00 Ori Persaud [facility] MAGNESIUM 2020-03-03 01:22:00 Ori Persaud [facility] HEPATIC FUNCTION PANEL 2020-03-03 01:22:00 Sabi Begum [facility] ([id number]) (ALB,T.PRO,BILI Medical Branch T,BU/BC,ALT,AST,ALK PHOS) 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 PANEL (NA, 2020-03-03 01:22:00 [facility]i [facility] K, CL, CO2, GLUCOSE, BUN, Medica l Branch CREATININE, CA) CBC WITH DIFFERENTIAL 2020-03-03 01:22:00 Sabi Begum [facility] URINALYSIS 2020-03-03 01:22:00 Shy [facility] LACTIC ACID WHOLE BLOOD 2020-03-03 01:22:00 Shy [facility] COVID-19 (ID NOW RAPID 2020-03-03 01:22:00 Shy [facility] TESTING) Medical Branch GALV/CLC ONLY - URINE DRUG 2020-02-27 20:02:00 [facility] - [facility] COMPREHENSIVE DRUG SCREEN FREE T4 2020-02-27 17:48:00 [facility] THYROID STIMULATING 2020-02-27 17:48:00 [facility] HORMONE [facility] FREE T3 2020-02-27 17:48:[address] [facility] [address] ABDOMEN PELVIS W 2020-02-26 18:27:28 Alondra Fay [facility] CONTRAST [facility] COVID-19 (ID NOW RAPID 2020-02-26 06:41:00 Shy [facility] TESTING) Medical Branch XR ABDOMEN ACUTE SERIES 2020-02-26 04:48:30 Shy [facility] LIPASE 2020-02-26 03:35:00 Shy [facility] HEPATIC FUNCTION PANEL 2020-02-26 03:35:00 Shy [facility] ([id number]) (ALB,T.PRO,BILI Medical Branch T,BU/BC,ALT,AST,ALK PHOS) 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 PANEL (NA, 2020-02-26 03:35:00 Sabi [facility] K, CL, CO2, GLUCOSE, BUN, Medica l Branch CREATININE, CA) CBC WITH DIFFERENTIAL 2020-02-26 03:35:00 Shy [facility] LACTIC ACID WHOLE BLOOD 2020-02-26 03:35:00 Shy [facility] EXTRA TUBE LT. BLUE 2020-02-26 03:35:00 Sabi Begum [facility] acute [facility] MAGNESIUM 2020-02-03 16:38:00 Simin [facility] 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 PANEL (NA, 2020-02-03 16:38:00 Simin, [facility] K, CL, CO2, GLUCOSE, BUN, Medica l Branch CREATININE, CA) XR KUB 2020-01-31 16:59:00 Helene Griffin [facility] 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 PANEL (NA, 2020-01-31 06:15:00 Kirill [facility] K, CL, CO2, GLUCOSE, BUN, Medica l Branch CREATININE, CA) CBC WITH DIFFERENTIAL 2020-01-31 06:15:00 Kirill Henson [facility] 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 PANEL (NA, 2020-01-29 10:06:00 Nataly [facility] K, CL, CO2, GLUCOSE, BUN, Medica l Branch CREATININE, CA) CBC WITH DIFFERENTIAL 2020-01-29 10:06:00 Judith Ingram [facility] COVID-19 (PCR MOLECULAR 2020-01-29 03:56:00 Liz [facility] TESTING) Medical Branch LACTIC ACID WHOLE BLOOD 2020-01-29 03:55:00 Bernardo Donnelly [facility] EXTRA TUBE LAV 2020-01-29 03:55:00 Liz [facility] o [facility] EXTRA TUBE LT. BLUE 2020-01-29 03:55:00 [facility]. GREEN 2020-01-29 03:55:00 Arleth Hill [facility] URINALYSIS 2020-01-29 01:35:00 Silvia Jurado I [facility] COVID-19 (ID NOW RAPID 2020-01-29 01:32:00 Bernardo Donnelly [facility] TESTING) Medical Branch CT ABDOMEN PELVIS W 2020-01-28 23:53:23 JuradoSilvia I [facility] CONTRAST [facility] LIPASE 2020-01-28 23:19:00 JuradoSoheilaSilviaGeneral acute hospital HEPATIC FUNCTION PANEL 2020-01-28 23:19:00 [facility] ([id number]) (ALB,T.PRO,BILI Medical [place] T,BU/BC,ALT,AST,ALK PHOS) 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 PANEL (NA, 2020-01-28 23:19:00 JuradoSondra [facility] K, CL, CO2, GLUCOSE, BUN, Medica l [place] CREATININE, CA) CBC WITH DIFFERENTIAL 2020-01-28 23:19:00 HollywoodSoheilaSilvia I [facility] HOSPITAL ADMISSION 2020-01-28 05:01:00 Doctor Unassigned, [facility] [place] Medical Branch 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 PANEL (NA, 2020-01-26 18:06:00 [facility], CL, CO2, GLUCOSE, BUN, Medica l [place] CREATININE, CA) MAGNESIUM 2020-01-26 08:17:00 Liz [facility] XR KUB 2020-01-26 06:00:00 Helene Griffin [facility] PHOSPHORUS 2020-01-25 09:43:00 Liz [facility] COVID-19 (ID NOW RAPID 2020-01-25 04:31:00 Shy [facility] TESTING) Medical Branch LACTIC ACID WHOLE BLOOD 2020-01-25 04:27:00 Sabi Begum [facility] CT ABDOMEN PELVIS W 2020-01-25 02:15:22 Sabi Begum [facility] CONTRAST [facility] Branch URINALYSIS 2020-01-25 01:05:00 Shy [facility] LIPASE 2020-01-25 00:42:00 Shy [facility] HEPATIC FUNCTION PANEL 2020-01-25 00:42:00 Sabi Begum [facility] ([id number]) (ALB,T.PRO,BILI [facility] T,BU/BC,ALT,AST,ALK PHOS) 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 PANEL (NA, 2020-01-25 00:42:00 Sabi Begum [facility] K, CL, CO2, GLUCOSE, BUN, Medica l Branch CREATININE, CA) CBC WITH DIFFERENTIAL 2020-01-25 00:42:[address] [id number] 2020-01-09 00:00:[address] [facility] EXTERNAL PROVIDER RECORDS 2019-12-28 05:01:00 Doctor Unassigned, [facility] [place] [facility] Plan of Care Planned Activity Planned Date Details Comments Source Future Scheduled 2029-03-[address] [facility] 00:00:00 malignant neoplasm Medical C enter of colon (procedure) [code = 142604959] Future Scheduled 2020-04-[address] [facility] Test 00:00:00 (#1) [code = [facility] INFLUENZA VACCINE (#1)] Future Scheduled [address] [facility] Test 00:00:00 (procedure) [code = [facility] [id number]] Encounters Start End Encounter Admission Attending Care Care Encounter Source Date/Time Date/Time Type Type Clinicians Facility Department ID 2021-09-13 Inpatient EM Raffaele Levi [facility]L [facility] [id number] [facility] 14:59:00 06 [facility] 2021-06-25 Emergency [facility] [id number] Univers 05:25:[address] [facility] 2021-06-25 Emergency [facility] [id number] Univers 01:41:18 ity [facility] 2021-06-24 Emergency [facility] [id number] Univers 22:38:[address] [facility] 2021-06-22 Emergency [facility] [id number] Univers 21:40:[address] [facility] 2021-06-22 Emergency [facility] [id number] Univers 13:55:[address] [facility] 2021-06-22 Emergency [facility] [id number] Univers 05:54:[address] [facility] 2021-06-21 Emergency [facility] [id number] Univers 22:33:[address] [facility] 2021-06-21 Emergency [facility] [id number] Univers 22:33:[address] [facility] 2021-06-21 Emergency [facility] [id number] Univers 22:22:[address] [facility] 2021-06-21 Emergency [facility] [id number] Univers 20:04:[address] [facility] 2021-06-21 Emergency [facility] [id number] Univers 19:53:[address] [facility] 2021-06-21 Emergency [facility] [id number] Univers 19:37:[address] [facility] 2021-06-21 Emergency [facility] [id number] Univers 19:36:[address] [facility] 2021-06-21 Emergency [facility] [id number] Univers 17:11:[address] [facility] 2021-06-21 Emergency [facility] [id number] Univers 16:44:[address] [facility] 2021-06-21 Emergency [facility] [id number] Univers 11:19:[address] [facility] 2021-06-21 Emergency [facility] [id number] Univers 10:16:[address] [facility] 2021-06-21 Emergency [facility] [id number] Univers 06:08:[address] [facility] 2021-06-21 Emergency [facility] [id number] Univers 04:43:[address] [facility] 2021-06-21 Emergency [facility] [id number] Univers 04:42:[address] [facility] 2021-06-20 Emergency X [facility] [id number] Univers 18:31:[address] [facility] 2020-02-23 Inpatient HCAPM LENNY [id number] [facility] 18:42:00 [id number] [facility] 2020-02-17 Inpatient EM Avtar, HCAPM MAS [id number] [facility] 00:22:00 Oladipo [id number] [facility] 2020-02-16 Inpatient HCAPM LENNY [id number] [facility] 23:50:00 [id number] [facility] 2020-01-05 Inpatient UR Perea, HCAPM MEDI.01 [id number] [facility] 20:23:00 Mark 01253 [facility] 2019-12-13 Inpatient HCAMN JULIA [id number] [facility] 17:52:00 [id number] [facility] 2022-04-14 2022-04-14 Transition MELANIE Valdes [id number] Univers 00:00:00 00:00:00 of Care Miryam RECINOS [id number] [id number] [id number] [facility] 403 Branch 2022-04-09 2022-04-10 Emergency X [facility] ERT [id number] Univers 20:38:00 00:14:[address] [facility] 2022-04-09 2022-04-10 Emergency [facility] [id number] Univers 20:38:00 00:14:00 Alvarez Rosibel [place] [id number] [facility] [id number] [facility] [id number] [facility] 084 Branch 2022-04-09 2022-04-09 Transition ASIA ValdesEddie [id number] Univers 00:00:00 00:00:00 of Care Miryam RECINOS [id number] [id number] [id number] [facility] 403 Branch 2022-04-02 2022-04-08 [id number] Univers 11:42:00 12:30:[address] [facility] 2022-04-02 2022-04-08 [facility] Rekha Sheehan [facility] [id number] Univers 11:42:00 12:30:00 Encounter Open mHealthZahraa dawsonshua [facility] [id number] ity of [place] [id number] [place] [id number] [address] ([facility]) 2022-03-29 2022-03-29 Emergency EM White, HCACL AERS [id number] [facility] 14:26:00 16:45:00 Sabi Adams [facility] 2022-03-29 2022-03-29 Emergency EM White, HCACL HCACL [id number] [facility] 14:26:00 16:45:00 Sabi Pollock [facility] 2022-03-25 2022-03-26 Inpatient E RASHAWNLEE [facility] [id number] [facility] 13:38:00 10:16:00 , YESSI 2022-03-15 2022-03-18 Emergency E RADHA, [facility] MED [id number] [facility] 13:36:00 18:59:00 JULIO 2022-03-13 2022-03-13 Emergency [facility] MED [id number] [place] 15:33:00 20:25:00 [facility] 2022-03-13 2022-03-13 [facility] [id number] [place] 00:00:00 00:00:00 [facility] [place] 2022-03-06 2022-03-09 Inpatient ER LUIS ENRIQUE EARLED [facility] Emergency [id number] [facility] 12:16:00 12:55:00 2022-03-06 2022-03-06 Outpatient [facility] [id number] [facility] 00:00:00 23:59:00 [facility] 2022-02-18 2022-02-20 [facility] [id number] [place] 13:58:00 11:55:00 [facility] 2022-02-18 2022-02-18 [facility] [id number] [place] 15:19:05 15:23:18 [facility] 2022-02-18 2022-02-18 Outpatient 1 TEJAS [facility] [id number] [place] 13:58:00 13:58:00 [facility] 2022-02-18 2022-02-18 Outpatient DENIZ [facility] [id number] [place] 00:00:00 00:00:00 , 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 2022-02-07 2022-02-11 Inpatient ERIBERTO [facility] [id number] [place] 13:40:00 13:22:00 [facility] 2022-02-07 2022-02-07 Outpatient 1 DAILY ISLAS [facility] [id number] [place] 13:40:00 13:40:00 [facility] 2022-01-30 2022-01-30 Emergency EM Tara [facility] [id number] [facility] 17:02:00 18:29:00 Dwain Scanlon [facility] 2022-01-30 2022-01-30 Emergency EM Tara [facility] [id number] [facility] 17:02:00 18:29:00 Dwain Ortiz [facility] 2022-01-22 2022-01-22 Emergency [facility] [id number] [place] 17:24:00 20:39:00 [facility] 2022-01-16 2022-01-21 Outpatient [facility] [id number] [place] 11:04:00 18:08:00 [facility] 2022-01-19 2022-01-19 Outpatient [facility] [id number] [place] 12:34:08 13:29:31 [facility] 2022-01-16 2022-01-16 Outpatient [facility] [id number] [place] 19:42:28 20:01:28 [facility] 2022-01-16 2022-01-16 Outpatient [facility] [id number] [place] 11:04:00 11:04:00 KARIN Khannacarmen 2022-01-10 2022-01-11 [facility] [id number] [place] 10:58:00 11:20:00 [facility] 2022-01-10 2022-01-10 Outpatient 1 [facility] [id number] [place] 10:58:00 10:58:00 [facility] 2022-01-08 2022-01-09 Emergency [facility] [id number] [place] 17:57:00 02:50:00 [facility] 2022-01-08 2022-01-08 Emergency [facility] [id number] [place] 21:40:34 21:50:19 [facility] 2021-09-23 2021-09-23 Emergency EM Raffaele Levi [facility] AERS [id number] [facility] 19:35:00 21:10:00 [facility] 2021-09-13 2021-09-13 Emergency X ROSHAN AGUIRRE ERT [id number] Univers 21:20:00 22:36:00 MICKEY atwood [facility] 2021-09-13 2021-09-13 Emergency Harrosmery, [facility] 1.2.055.881 [id number] Univers 21:20:00 22:36:[address] [facility] 350.1.13.10 it [place] [phone] [address] ([facility]) 2021-09-13 2021-09-13 Emergency EM Raffaele Levi [facility] AERS [id number] [facility] 14:57:00 16:37:00 [facility] 2021-09-12 2021-09-12 Emergency X MORRICAL, [facility] ERT [id number] Univers 14:25:00 17:51:00 DWAIN ity [facility] 2021-09-12 2021-09-12 Emergency Morrical, TRAUMA 1.2.840.114 [id number] Univers 14:25:00 17:51:00 Dwain [facility] 350.1.13.10 [phone] [address] 2021-09-12 2021-09-12 Emergency X JIGARTERESARUST ERT [id number] Univers 06:20:00 10:10:00 CONSTANTIN ity [facility] 2021-09-12 2021-09-12 Emergency Alona Newby TRA[place] 1.2.840 .114 [id number] Univers 06:20:00 10:10:00 Constantin Franco [place] 350.1.13.10 [place] [id number] [address] 2021-09-08 2021-09-09 Emergency X YINA, [facility] ERT [id number] Univers 23:01:00 01:30:00 SEBASTIAN ity [facility] 2021-09-08 2021-09-09 Emergency Pacheco, TRAUMA 1.2.077.434 [id number] Univers 23:01:00 01:30:00 Sebastian L [place] 350.1.13.10 [phone] [address] 2021-09-07 2021-09-07 Emergency X YINARUST ERT [id number] Univers 19:24:00 23:44:[address] of [facility] 2021-09-07 2021-09-07 Emergency Pacheco, TRAUMA 1.2.671.149 [id number] Univers 19:24:00 23:44:00 Sebastian L [place] 350.1.13.10 [place] [id number] [facility] 014 Branch 2021-09-06 2021-09-06 Emergency X YINARUST ERT [id number] Univers 15:35:00 17:52:[address] [facility] 2021-09-06 2021-09-06 Emergency Pacheco, TRAUMA 1.2.515.306 [id number] [id number] Univers 15:35:00 17:52:00 Sebastian L [place] 350.1.13.10 [place] [id number] [facility] 014 Branch 2021-09-06 2021-09-06 Transition MELANIE Vallejo 1.2.840.114 [id number] Univers 00:00:00 00:00:00 of Care Emiillaurel RECINOS 350.1.13.10 it[place] [id number] [facility] 403 Branch 2021-08-30 2021-09-05 Inpatient X [facility] PAKO [id number] Univers 16:53:00 16:00:[address] [facility] 2021-08-30 2021-09-05 [facility] Gayatri Gu 1 .2.840.114 [id number] Univers 16:53:00 16:00:00 Encounter Sophia Andrea 350.1 .13.10 ity of [facility] 4.2.7.2.[address] [facility] [place] [place] [phone] Medical 7 Branch 2021-09-03 2021-09-03 Surgery [facility] ABILIO 1.2.840.114 [id number] Univers 07:15:00 10:04:00 MAGGY 350.1.13.10 it y of [facility] 4.2.7.2.686 Javi as [phone] [facility] 103 Branch 2021-08-29 2021-08-29 Emergency X IBLUCY, [facility] ERT [id number] Univers 17:15:00 20:03:[address] [facility] 2021-08-29 2021-08-29 Emergency Ibikunle, TRAUMA 1.2.840.114 [id number] Univers 17:15:00 20:03:00 [facility] 350.1.13.10 [place] [phone] [facility] 014 Branch 2021-07-29 2021-08-05 Inpatient X [facility] PAKO [id number] Univers 20:15:00 07:43:[address] [facility] 2021-07-29 2021-08-05 [facility] Jonah Rees 1.2.840.1 14 [id number] Univers 20:15:00 07:43:00 Encounter Karin Myers 350.1.13.1 0 ity of [facility] 4.2.7.2.686 [place] [phone] [facility] 091 Branch 2021-07-29 2021-07-29 Transition MELANIE Vallejo 1.2.840.114 [id number] Univers 00:00:00 00:00:00 of Care Emili RECINOS 350.1.13.10 [place] [id number] [facility] 403 Branch 2021-07-27 2021-07-27 Emergency EM Koussayer, HCAMN JULIA [id number] [facility] 10:15:00 12:36:00 [facility] [address] [facility] 2021-07-27 2021-07-27 Emergency EM Koussayer, HCAMN HCAMN [id number] [facility] 10:15:00 12:36:[address] [facility] 2021-07-23 2021-07-26 Inpatient X [facility] PAKO [id number] Univers 00:39:00 14:50:[address] [facility] 2021-07-23 2021-07-26 Hospital Antoine Sabi ABILIO 1.2.840 .114 [id number] Univers 00:39:00 14:50:00 Encounter Bia Pedro 350.1.13.10 ity of HOSPITAL 4.2.7.2.686 Javi as [phone] [facility] 093 Branch 2021-07-22 2021-07-22 Emergency EM Marcelina, [facility] AERS [id number] [facility] 04:25:00 08:20:00 Gabriella 45905 [facility] 2021-06-27 2021-06-27 Emergency EM White, [facility] AERS [id number] 02 [facility] 15:31:00 17:37:00 Sabi 75558 [facility] 2021-06-25 2021-06-25 Orders Doctor BERNARDO 1.2.840.[id number] [place] [address] 00:00:00 00:00:00 Only Unassigned, MAGGY 350.1.13.10 ity of [facility] 4.2.7.2.686 Javi as [phone] [facility] 009 Branch 2021-05-31 2021-06-04 Emergency Willie Garrett [facility] 1.2.840.1 14 [id number] Univers 17:10:00 16:38:00 [facility]ine [facility] 350.1.13.10 ity of Sabi Gann 4.2.7.2.686 [place] Tamika Lyle Bhatt [phone] [address] ([facility]) 2021-05-20 2021-05-21 Emergency Bernardo Donnelly [facility] 1.2.840.114 [id number] Univers 14:29:00 17:10:00 [facility] 350.1.13.10 ity of [place] 4.2.7.2.686 [facility] Bhatt [phone] [address] ([facility]) 2021-05-10 2021-05-10 Transition Mleanie Vallejo 1.2.840.114 [id number] Univers 00:00:00 00:00:00 of Care Emili Jjy 350.1.13.10 ity of [place] 4.2.7.2.[place] [id number] [facility] 403 Branch 2021-05-07 2021-05-09 Hospital Alona Pérez [facility] 1.2.840.11 4 [id number] Univers 19:23:00 15:26:00 Encounter Diogo [facility] 350.1.13. 10 ity of Abad Watson [place] 4.2.7.2.686 [facility] [phone] [facility] 114 Branch ([facility]) 2021-04-28 2021-05-01 [facility] [id number] [facility] 21:05:00 14:18:00 Marcello 14149 [facility] 2020-09-26 2020-09-26 Emergency Jose, [facility] 1.2.878.395 [id number] Univers 16:56:00 23:00:00 Mariaelena Oropeza 350.1.13.10 i ty of [place] 4.2.7.2.686 [facility] [phone] [facility] 084 Branch 2020-08-22 2020-08-24 Emergency Funmilayo Pinzon [facility] 1.2.8 40.114 [id number] Univers 15:31:00 14:20:00 SweeneyBart mata Health 350.1.13.10 ity of Ori Persaud [place] 4.2.7.2.686 [facility] [phone] [facility] 114 Branch ([facility]) 2020-07-09 2020-07-09 Emergency Umbertoeki [facility] 1.2.840.114 [id number] Univers 16:23:00 19:43:00 , Juan M [facility] 350.1.13.10 ity of [place] 4.2.7.2.686 [facility] [phone] [facility] 014 Branch ([facility]) 2020-06-15 2020-06-15 Patient Saira Goodman 1.2.840.114 [id number] Univers 00:00:00 00:00:00 Outreach E Recinos 350.1.13.10 i ty of [place] [phone] [place] [address] Branch 2020-06-12 2020-06-12 Patient Saira Goodman 1.2.840.114 [id number] Univers 00:00:00 00:00:00 Outreach E Recinos 350.1.13.10 i ty of [place] [phone] [place] [address] Branch 2020-06-08 2020-06-08 Patient Melanie Emanuel 1.2.840.114 [id number] Univers 00:00:00 00:00:00 Outreach Mela Nolberto Recinos 350.1.13.10 ity of [place] [phone] [address] 2020-06-07 2020-06-07 Patient Saira Goodman 1.2.840.114 78 [id number] Univers 00:00:00 00:00:00 Outreach E Recinos 350.1.13.10 i ty [place] [phone] [address] 2020-06-05 2020-06-05 Emergency [facility] 1.2.840.114 [id number] Univers 06:47:00 10:55:00 More Oropeza 350.1.13.10 ity of [place].2.[place] [id number] [facility] 084 Branch 2020-06-04 2020-06-04 Emergency DonnellyRUST 1.2.487.218 [id number] Univers 10:36:00 13:38:00 [facility] 350.1.13.10 it y [place] [phone] [facility] 014 Branch ([facility]) 2020-06-04 2020-06-04 Patient Saira Goodman 1.2.840.114 [id number] Univers 00:00:00 00:00:00 Outreach E Recinos 350.1.13.10 i ty of [place] 4.[place].2.[place] [phone] [place] [address] Branch 2020-06-04 2020-06-04 Patient Melanie Emanuel 1.2.840.114 [id number] Univers 00:00:00 00:00:00 Outreach Mela Arvizu Recinos 350.1.13.10 ity of [place] [phone] [address] 2020-06-01 2020-06-01 Transition Melanie Vallejo 1.2.840.114 [id number] Univers 00:00:00 00:00:00 of Care Emili Recinos 350.1.13.10 ity of [place] [id number] [address] 2020-05-22 2020-05-31 Hospital Alex Alvarenga 1.2.840.11 4 [id number] Univers 14:42:00 18:40:00 Encounter Bia Pedro Maggy 350.1.13.10 ity of Hospital 4.2.7.2.686 Javi as [phone] [address] 2020-05-31 2020-05-31 Patient Saira Goodman 1.2.840.114 [id number] Univers 00:00:00 00:00:00 Outreach E Recinos 350.1.13.10 i [place] [id number] [address] 2020-05-23 2020-05-23 Outpatient R [facility] [id number] Univers 10:00:00 10:00:[id number] [facility] 2020-05-23 2020-05-23 Patient Saira Goodman 1.2.840.114 [id number] Univers 00:00:00 00:00:00 Outreach E Reicnos 350.1.13.10 i ty [place] [phone] [address] 2020-05-23 2020-05-23 Patient Saira Goodman 1.2.840.114 78 [id number] Univers 00:00:00 00:00:00 Outreach E Recinos 350.1.13.10 i ty [place].2.[place] [phone] [address] 2020-05-23 2020-05-23 Patient Melanie Emanuel 1.2.840.114 [id number] Univers 00:00:00 00:00:00 Outreach Mela Nolberto Bacilio 350.1.13.10 it[place] of [place].2.[place] [phone] [address] 2020-05-21 2020-05-21 Emergency [facility] 1.2.799.025 [id number] Univers 20:52:00 23:41:00 [facility] 350.1.13.10 it y [place] [phone] [address] ([facility]) 2020-05-20 2020-05-20 Emergency Unknown, TRAUMA 1.2.840.114 [id number] Univers 07:04:00 15:13:00 Attending CENTER 350.1.13.10 [place] [phone] [address] 2020-05-19 2020-05-20 Emergency [facility] 1.2.840.114 [id number] Univers 21:29:00 06:12:00 [facility] 350.1.13.10 it [place].2.[place] [phone] [address] ([facility]) 2020-05-18 2020-05-18 Patient Saira Goodman 1.2.840.114 [id number] Univers 10:18:59 11:28:59 Outreach E Bacilio 350.1.13.10 i ty [place] [phone] [address] 2020-05-18 2020-05-18 Outpatient R [facility] [id number] -[id number] Univers 09:30:00 09:30:[id number] [facility] 2020-05-18 2020-05-18 Patient Melanie Emnauel 1.2.840.114 [id number] Univers 00:00:00 00:00:00 Outreach Mela Nolberto Bacilio 350.1.13.10 it[place] [phone] [address] 2020-05-17 2020-05-17 Outpatient R [facility] [id number] -[id number] Univers 10:00:00 10:00:[id number] [facility] 2020-05-17 2020-05-17 Patient Saira Goodman 1.2.840.114 [id number] Univers 00:00:00 00:00:00 Outreach E Recinos 350.1.13.10 i ty [place] [id number] [address] 2020-05-17 2020-05-17 Patient Asia Emanueleddie 1.2.840.114 [id number] Univers 00:00:00 00:00:00 Outreach Mela Jjy 350.1.13.10 ity of [place] [phone] [address] 2020-05-15 2020-05-15 Patient Asia Emanueleddie 1.2.840.114 [id number] Univers 00:00:00 00:00:00 Outreach Mela Recinos 350.1.13.10 ity of [place] 4[place] [id number] [address] 2020-05-14 2020-05-14 Transition Melanie Vallejo 1.2.840.114 [id number] [id number] Univers 00:00:00 00:00:00 of Care Emili Recinos 350.1.13.10 it[place] of [place] [phone] [address] 2020-05-04 2020-05-12 Hospital [facility] 1.2. 840.114 [id number] Univers 21:09:00 14:03:00 Encounter Carol Ann Jason 350.1.13.10 ity of Hospital 4.2.7.2.686 Javi as [phone] [address] 2020-05-10 2020-05-10 Patient Saira Goodman 1.2.840.114 78 [id number] Univers 00:00:00 00:00:00 Outreach E Recinos 350.1.13.10 i ty [place] [phone] [place] [address] Branch 2020-05-09 2020-05-09 Transition Melanie Vallejo 1.2.840.114 [id number] [id number] Univers 00:00:00 00:00:00 of Care Emili Recinos 350.1.13.10 it[place] [id number] [address] 2020-05-08 2020-05-08 Patient Saira Goodman 1.2.840.114 [id number] Univers 00:00:00 00:00:00 Outreach E Recinos 350.1.13.10 i ty [place] [phone] [address] 2020-05-02 2020-05-03 Emergency [facility] 1.2.038.086 [id number] Univers 23:37:00 01:53:00 Joel Oropeza 350.1.13.10 ity of [place] [phone] [facility] 084 Branch 2020-05-03 2020-05-03 Patient Saira Goodman 1.2.840.114 78 [id number] Univers 00:00:00 00:00:00 Outreach E Recinos 350.1.13.10 i ty [place] [id number] [address] 2020-05-03 2020-05-03 Transition Melanie Vallejo 1.2.840.114 [id number] Univers 00:00:00 00:00:00 of Care Emili Recinos 350.1.13.10 ity of [place].2.[place] [phone] [place] [address] Branch 2020-03-30 2020-05-02 Hospital Alex Alvarenga 1.2.840.11 4 [id number] Univers 16:55:00 16:45:00 Encounter Diogo Brown 350.1.13. 10 ity of [facility] 4.2.7.2.686 [place] [phone] [facility] 091 Branch 2020-04-06 2020-04-06 Anesthesia Dana Sampson 1.2.8 40.114 [id number] Univers 09:10:00 11:29:00 Cynthia Herring 350.1.1 3.10 ity of Hospital 4.2.7.2.686 Javi as [id number] [facility] 103 Branch 2020-03-29 2020-03-29 Transition Melanie Vallejo 1.2.840.114 [id number] Univers 00:00:00 00:00:00 of Care Emili Recinos 350.1.13.10 it[place] of [place].2.[place] [id number] [facility] 403 Branch 2020-03-25 2020-03-28 Hospital Bernardo Donnelly [facility] 1.2.840.114 [id number] Univers 19:12:00 18:43:00 Encounter Felix [facility] 350.1.13.1 0 it[place].2.[place] [phone] [facility] 113 Branch ([facility]) 2020-03-07 2020-03-07 Transition Melanie Vallejo 1.2.840.114 [id number] Univers 00:00:00 00:00:00 of Care Emili Recinos 350.1.13.10 it[place] of [place].2.[place] [phone] [facility] 403 [address] 2020-03-02 2020-03-05 Hospital Sabi Begum [facility] 1.2.840.11 [id number] Univers 19:53:34 17:23:00 Encounter Eliu [facility] 350.1.13.10 ity of Simin, Radmargarethyam [place] 4.2.7.2.686 [place] Bhatt [phone] [facility] 110 Branch ([facility]) 2020-02-29 2020-02-29 Transition Melanie Vallejo 1.2.840.114 [id number] Univers 00:00:00 00:00:00 of Care Emili Recinos 350.1.13.10 ity of [place].2.[place] [phone] [facility] 403 [address] 2020-02-26 2020-02-27 Hospital Juventino Mccabe 1.2.840.11 4 [id number] Univers 04:55:41 19:20:00 Encounter Bia Pedro 350.1.13.10 ity of [facility] 4.2.7.2.686 Javi as [phone] [facility] 090 Branch 2020-02-27 2020-02-27 Patient Saira Goodman Melanie 1.2.840.114 [id number] Univers 00:00:00 00:00:00 Outreach E Recinos 350.1.13.10 i ty of [place].2.[place] 535.6026594 [facility] 403 [address] 2020-02-25 2020-02-26 Emergency Begum, [facility] 1.2.357.770 [id number] Univers 21:25:58 03:55:00 [facility] 350.1.13.10 it y [place].2.[place] [phone] [facility] 014 Branch ([facility]) 2020-02-24 2020-02-24 Outpatient Perea, [facility] LABO [id number] [facility] 07:51:00 07:51:00 Mark 52402 [facility] 2020-02-18 2020-02-18 Outpatient Avtar, [facility] LABO [id number] [facility] 00:26:00 00:26:00 Coco 14126 [facility] 2020-02-07 2020-02-07 Transition Melanie Vallejo 1.2.840.114 [id number] Univers 00:00:00 00:00:00 of Care Emili Recinos 350.1.13.10 ity of [place] 4.[place].7.2.[place] [phone] [place] [address] Branch 2020-02-07 2020-02-07 Transition Melanie Vallejo 1.2.840.114 [id number] [id number] 00:00:00 00:00:00 of Care Emili Recinos 350.1.13.10 [place] 4.2.7.2.686 [id number] [facility] 2020-01-28 2020-02-05 Inpatient X SIMIN [facility] [id number] Univers 18:12:56 15:12:00 RADHESHYAM ity [facility] 2020-01-28 2020-02-05 [facility] Bernardo Donnelly [facility] 1.2.840.114 [id number] Univers 18:12:56 15:12:00 Encounter Ahteetee [facility] 350.1.13.10 ity of [place]in Radheshyam [place] 4.2.7.2.686 [facility] [phone] [facility] 114 [address] ([facility]) 2020-01-28 2020-02-05 [facility] Bernardo Donnelly [facility] 1.2.840.114 [id number] 18:12:56 15:12:00 Encounter Liz [facility] 350.1.13.10 Simin, Radheshyam [place] 4.2.7.2.686 [place] [phone] [place] [address] ([facility]) 2020-01-24 2020-01-26 Emergency Sabi Begum [facility] 1.2.840.1 14 [id number] Univers 18:46:34 19:35:00 Ahteetee [facility] 350.1.13.10 ity of [place], Radheshyam [place] 4.2.7.2.686 [facility] [phone] [facility] 109 [address] ([facility]) 2020-01-24 2020-01-26 Outpatient X SIMIN [facility] [id number] Univers 18:46:34 19:35:00 RADHESHYAM ity [facility] 2020-01-24 2020-01-26 Emergency Sabi Begum [facility] 1.2.840.1 14 [id number] 18:46:34 19:35:00 Ahmed, [facility] 350.1.13.10 Simin, Radheshyam [place] 4.2.7.2.686 [place] [phone] [place] [address] ([facility]) 2020-01-05 2020-01-05 Outpatient JOE Perea OUTD [id number] [facility] 23:52:00 23:52:00 [facility] 2019-12-28 2019-12-28 Orders Doctor BERNARDO 1.2.840.114 [id number] Univers 00:00:00 00:00:00 Only Unassigned, MAGGY 350.1.13.10 ity [facility] 4.2.7.2.686 Javi as [id number] [facility] [address] 2019-12-28 2019-12-28 Orders Doctor BERNARDO [id number] 00:00:00 00:00:00 Only Unassigned, MAGGY 350.1.13.10 [facility] 4.2.7.2.686 [id number] 009 2019-12-12 2019-12-12 Emergency [place], TRAUMA [id number] [facility] 21:02:30 23:20:00 [facility] 350.1.13.10 [place] [id number] [facility] [address] 2019-12-12 2019-12-12 Emergency [place], TRAUMA [id number] 21:02:30 23:20:00 [place] 350.1.13.10 4.2.7.2.686 [id number] 2017-11-02 2017-11-02 Emergency E [facility] [id number] 08:33:00 08:33:00 [facility] 2017-08-05 2017-08-05 Outpatient [facility] [id number] [place] 00:00:00 00:00:00 Health 2017-07-28 2017-07-28 Outpatient [facility] [id number] [place] 00:00:00 00:00:00 [facility] 2017-06-24 2017-06-24 Outpatient [facility] [id number] [place] 00:00:00 00:00:00 [facility] 2017-06-22 2017-06-22 Emergency [facility] [id number] [place] 21:37:29 21:37:29 Health 2017-06-22 2017-06-22 Emergency [facility] [id number] [place] 21:06:00 21:06:00 Health 2017-06-22 2017-06-22 Outpatient [facility] [id number] [place] 10:02:31 10:02:31 Health 2017-06-09 2017-06-09 Outpatient [facility] [id number] [place] 00:00:00 00:00:00 [facility] 2017-06-09 2017-06-09 Outpatient [facility] [id number] [place] 00:00:00 00:00:00 [facility] 2017-05-08 2017-05-08 Emergency [facility] [id number] [place] 01:04:44 01:04:44 [facility] 2017-05-05 2017-05-05 Emergency E [facility] [id number] [address] 08:11:00 08:11:00 [facility] 2017-04-15 2017-04-15 Emergency E [facility] [id number] 09:53:00 09:53:00 [facility] 2017-04-14 2017-04-14 Outpatient [facility] [id number] [place] 13:31:02 13:31:02 Health Results Test Description Test Time Test Comments Results Result Comments Source CBC WITH DIFF 2022-04-10 05:06:34 Test Item Value Reference Range Interpretation Comme nts WBC (test code = 6690-2) See_Comment [A utomated message] The system which Lum[employer] nerated this result transmit dain reference range: 4.20 - 1 0.70 10*3/?L. The reference r meredith was not used to interpr et this result as normal/abnor mal. RBC (test code = 789-8) See_Comment L [Au tomated message] The system which [employer] nerated this result transmit dain reference range: 4.26 - 5 .52 10*6/?L. The reference r meredith was not used to interpr et this result as normal/abnor mal. HGB (test code = 718-7) 9.9 g/dL 12.2-16.4 L HCT (test code = 4544-3) 31.3 % 38.4-49.3 L MCV (test code = 787-2) 87.9 fL 81.7-95.6 MCH (test code = 785-6) 27.8 pg 26.1-32.7 MCHC (test code = 786-4) 31.6 g/dL 31.2-35 RDW-SD (test code = 35094-1) 56.7 fL 38.5-51.6 H RDW-CV (test code = 788-0) 17.4 % 12.1-15.4 H PLT (test code = 777-3) See_Comment [Au tomated message] The system which ge nerated this result transmit dain reference range: 150 - 32 8 10*3/?L. The reference range was not used to interpret th is result as normal/abnormal . MPV (test code = 44720-3) 9.5 fL 9.8-13 L NRBC/100 WBC (test code = See_Comment [ Automated message] The 2315042994) system which ge nerated this result transmit dain reference range: 0.0 - 10 .0 /100 WBCs. The reference r meredith was not used to interpr et this result as normal/abnor mal. NRBC x10^3 (test code = See_Comment [Au tomated message] The 8672320758) system which ge nerated this result transmit dain reference range: 10*3/?L. The reference range was not u sed to interpret this result as normal/abnormal . SEG % (test code = 47106-2) 56 % 33-76 LYMPH % (test code = 28 % 14-54 47902-7) MONO % (test code = 26396-5) 12 % 0-4 H EOS % (test code = 70670-1) 4 % 0-3 H ANC (test code = 753-4) 4.72 10*3/uL 1.99-6.95 PLT ESTIMATE (test code = Normal Normal 9317-9) Lab Interpretation (test Abnormal code = 75948-8) [facility]. METABOLIC PANEL ([id number])2022-04-10 04:19:15 Test Item Value Reference Range Interpretation Comments NA (test code = 137 mmol/L 135-145 0889065412) K (test code = 4.6 mmol/L 3.5-5 8696950054) CL (test code = 108 mmol/L 98-108 9628005147) CO2 TOTAL (test code = 22 mmol/L 23-31 L 3141835110) AGAP (test code = 2-16 1290461258) BUN (test code = 16 mg/dL 7-23 6230877969) GLUCOSE (test code = 96 mg/dL 70-110 1028918039) CREATININE (test code = 1.35 mg/dL 0.6-1.25 H 6310477410) TOTAL BILI (test code = 0.4 mg/dL 0.1-1.4 8617865260) CALCIUM (test code = 9.1 mg/dL 8.6-10.6 6805800895) T PROTEIN (test code = 5.5 g/dL 6.3-8.2 L 2565894871) ALBUMIN (test code = 3.9 g/dL 3.5-5 1139282518) ALK PHOS (test code = 58 U/L 34-122 0390878729) ALTv (test code = 41 U/L 5-50 1742-6) AST(SGOT) (test code = 42 U/L 13-40 H 0975860893) eGFR (test code = mL/min/1.73m2 7964930023) GILBERTO (test code = GILBERTO) Association of Glomerular Filtration Rate (GFR) and Staging of Kidney Disease* + --+ --+ ------+| GFR (mL/min/1.73 m2) ?| With Kidney Damage ?| ?Without Kidney Damage+ --------+ --------+ +| ?>90 ?| ?Stage one ?| ? Normal ?+ ---+ ---+ -------+| ?60-89 ?| ?Stage two ?| ? Decreased GFR ? + --+ --+ ------+| ?30-59 ?| ?Stage three ?| ? Stage three ? + --+ --+ ------+| ?15-29 ?| ?Stage four ? | ? Stage four ?+ ---+ ---+ -------+| ?<15 (or dialysis) ? ?| ?Stage five ? | ? Stage five ?+ ---+ ---+ -------+ *Each stage assumes the associated GFR level has been in effect for at least three months. ?Stages 1 to 5, with or without kidney disease, indicate chronic kidney disease. Notes: Determination of stages one and two (with eGFR >59mL/min/1.73 m2) requires estimation of kidney damage for at least three months as defined by structural or functional abnormalities of the kidney, manifested by either:Pathological abnormalities or Markers of kidney damage (including abnormalities in the composition of the blood or urine or abnormalities in imaging tests). Lab Interpretation Abnormal (test code = 17318-3) [facility] Test Item Value Reference Range Interpretation Comments LIPASE (test code = 8565404526) 90 U/L 0-220 Lab Interpretation (test code = Normal 58782-5) [facility] 12:00:33 Test Item Value Reference Range Interpretation Comments MAGNESIUM (test code = 6400472111) 1.5 mg/dL 1.7-2.4 L Lab Interpretation (test code = Abnormal 71101-3) [facility] METABOLIC PANEL (NA, K, CL, CO2, GLUCOSE, BUN, CREATININE, CA)2022-04-08 11:12:32 Test Item Value Reference Range Interpretation Comments NA (test code = 136 mmol/L 135-145 6240279961) K (test code = 4.1 mmol/L 3.5-5 9951884175) CL (test code = 108 mmol/L 98-108 4422945558) CO2 TOTAL (test code = 25 mmol/L 23-31 8826597817) AGAP (test code = 2-16 8816575675) BUN (test code = 10 mg/dL 7-23 3328469988) GLUCOSE (test code = 82 mg/dL 70-110 1068641200) CREATININE (test code = 1.10 mg/dL 0.6-1.25 4198446799) CALCIUM (test code = 8.3 mg/dL 8.6-10.6 L 5488917389) eGFR (test code = mL/min/1.73m2 6717562965) GILBERTO (test code = GILBERTO) Association of Glomerular Filtration Rate (GFR) and Staging of Kidney Disease* + --+ --+ ------+| GFR (mL/min/1.73 m2) ?| With Kidney Damage ?| ?Without Kidney Damage+ --------+ --------+ +| ?>90 ?| ?Stage one ?| ? Normal ?+ ---+ ---+ -------+| ?60-89 ?| ?Stage two ?| ? Decreased GFR ? + --+ --+ ------+| ?30-59 ?| ?Stage three ?| ? Stage three ? + --+ --+ ------+| ?15-29 ?| ?Stage four ? | ? Stage four ?+ ---+ ---+ -------+| ?<15 (or dialysis) ? ?| ?Stage five ? | ? Stage five ?+ ---+ ---+ -------+ *Each stage assumes the associated GFR level has been in effect for at least three months. ?Stages 1 to 5, with or without kidney disease, indicate chronic kidney disease. Notes: Determination of stages one and two (with eGFR >59mL/min/1.73 m2) requires estimation of kidney damage for at least three months as defined by structural or functional abnormalities of the kidney, manifested by either:Pathological abnormalities or Markers of kidney damage (including abnormalities in the composition of the blood or urine or abnormalities in imaging tests). Lab Interpretation Abnormal (test code = 50282-8) [facility] 11:12:32 Test Item Value Reference Range Interpretation Comments PHOSPHORUS (test code = 7759876397) 2.5 mg/dL 2.5-5 Lab Interpretation (test code = Normal 58150-7) [facility] WITH [id number] 10:47:27 Test Item Value Reference Range Interpretation Comments WBC (test code = See_Comment [Automated 6690-2) message] The sy stem which generated this result transmitted reference range : 4.20 - 10.70 10*3/?L. The reference range was not used to interpret this result as normal/abnormal . RBC (test code = See_Comment L [Automated 789-8) message] The sy stem which generated this result transmitted reference range : 4.26 - 5.52 10*6/?L. The reference range was not used to interpret this result as normal/abnormal . HGB (test code = 10.0 g/dL 12.2-16.4 L 718-7) HCT (test code = 31.1 % 38.4-49.3 L 4544-3) MCV (test code = 87.6 fL 81.7-95.6 787-2) MCH (test code = 28.2 pg 26.1-32.7 785-6) MCHC (test code = 32.2 g/dL 31.2-35 786-4) RDW-SD (test code = 54.4 fL 38.5-51.6 H 97943-1) RDW-CV (test code = 16.9 % 12.1-15.4 H 788-0) PLT (test code = See_Comment [Automated 777-3) message] The sy stem which generated this result transmitted reference range : 150 - 328 10*3/ ?L. The reference r meredith was not used to interpret this result as normal/abnormal . MPV (test code = 9.7 fL 9.8-13 L 74943-9) NRBC/100 WBC (test See_Comment [Automat ed code = 2781799713) message] The system which generated this result transmitted reference range : 0.0 - 10.0 /100 WBCs. The refer ence range was not u sed to interpret th is result as normal/abnormal . NRBC x10^3 (test code See_Comment [Auto mated = 9010798380) message] The s ystem which generated this result transmitted reference range : 10*3/?L. The reference range was not used to interpret this result as normal/abnormal . GRAN MAT (NEUT) % 54.7 % (test code = 770-8) IMM GRAN % (test code 0.40 % = 7486347710) LYMPH % (test code = 33.8 % 736-9) MONO % (test code = 8.7 % 5905-5) EOS % (test code = 2.0 % 713-8) BASO % (test code = 0.4 % 706-2) GRAN MAT x10^3(ANC) 2.95 10*3/uL 1.99-6.95 (test code = 4640006314) IMM GRAN x10^3 (test 0-0.06 code = 3631346110) LYMPH x10^3 (test code 1.82 10*3/uL 1.09-3.23 = 731-0) MONO x10^3 (test code 0.47 10*3/uL 0.36-1.02 = 742-7) EOS x10^3 (test code = 0.11 10*3/uL 0.06-0.53 711-2) BASO x10^3 (test code 0.01-0.09 = 704-7) Lab Interpretation Abnormal (test code = 53273-9) [facility] METABOLIC PANEL (NA, K, CL, CO2, GLUCOSE, BUN, CREATININE, CA)2022-04-06 09:47:17 Test Item Value Reference Range Interpretation Comments NA (test code = 134 mmol/L 135-145 L 1838225349) K (test code = 4.2 mmol/L 3.5-5 Slight 5055941801) hemolysis CL (test code = 114 mmol/L 98-108 H 0259716163) CO2 TOTAL (test code 16 mmol/L 23-31 L = 4229031925) AGAP (test code = 2-16 9165732786) BUN (test code = 16 mg/dL 7-23 Slight 2076353875) hemolysis GLUCOSE (test code = 79 mg/dL 70-110 3478478446) CREATININE (test code 1.00 mg/dL 0.6-1.25 = 2474410341) CALCIUM (test code = 7.5 mg/dL 8.6-10.6 L 1147985371) eGFR (test code = mL/min/1.73m2 5846717020) GILBERTO (test code = GILBERTO) Association of Glomerular Filtration Rate (GFR) and Staging of Kidney Disease* + -----+ --------+ +| GFR (mL/min/1.73 m2) ?| With Kidney Damage ?| ?Without Kidney Damage+ +------- +---- --+| ?>90 ?| ?Stage one ?| ? Normal ?+ ------+ ---------+--------- +| ?60-89 ?| ?Stage two ?| ? Decreased GFR ? + -----+ --------+ +| ?30-59 ?| ?Stage three ?| ? Stage three ? + -----+ --------+ +| ?15-29 ?| ?Stage four ? | ? Stage four ?+ ------+ ---------+--------- +| ?<15 (or dialysis) ? ?| ?Stage five ? | ? Stage five ?+ ------+ ---------+--------- + *Each stage assumes the associated GFR level has been in effect for at least three months. ?Stages 1 to 5, with or without kidney disease, indicate chronic kidney disease. Notes: Determination of stages one and two (with eGFR >59mL/min/1.73 m2) requires estimation of kidney damage for at least three months as defined by structural or functional abnormalities of the kidney, manifested by either:Pathological abnormalities or Markers of kidney damage (including abnormalities in the composition of the blood or urine or abnormalities in imaging tests). Lab Interpretation Abnormal (test code = 29579-9) [facility] 09:47:17 Test Item Value Reference Range Interpretation Comments MAGNESIUM (test code = 7239228428) 1.2 mg/dL 1.7-2.4 L Lab Interpretation (test code = Abnormal 06573-3) [facility] CenterL[facility] Whole [id number] 09:16:49 Test Item Value Reference Range Interpretation Comments LACTIC ACID (test code = 1.35 mmol/L 0.5-2.2 0549412485) Lab Interpretation (test code = Normal 25544-7) [facility] WITH [id number] 09:13:32 Test Item Value Reference Range Interpretation Comments WBC (test code = See_Comment [Automated 6690-2) message] The sy stem which generated this result transmitted reference range : 4.20 - 10.70 10*3/?L. The reference range was not used to interpret this result as normal/abnormal . RBC (test code = See_Comment L [Automated 789-8) message] The sy stem which generated this result transmitted reference range : 4.26 - 5.52 10*6/?L. The reference range was not used to interpret this result as normal/abnormal . HGB (test code = 9.3 g/dL 12.2-16.4 L 718-7) HCT (test code = 27.3 % 38.4-49.3 L 4544-3) MCV (test code = 85.6 fL 81.7-95.6 787-2) MCH (test code = 29.2 pg 26.1-32.7 785-6) MCHC (test code = 34.1 g/dL 31.2-35 786-4) RDW-SD (test code = 52.4 fL 38.5-51.6 H 51605-6) RDW-CV (test code = 16.6 % 12.1-15.4 H 788-0) PLT (test code = See_Comment [Automated 777-3) message] The sy stem which generated this result transmitted reference range : 150 - 328 10*3/ ?L. The reference r meredith was not used to interpret this result as normal/abnormal . MPV (test code = 10.0 fL 9.8-13 52000-0) NRBC/100 WBC (test See_Comment [Automat ed code = 4992024236) message] The system which generated this result transmitted reference range : 0.0 - 10.0 /100 WBCs. The refer ence range was not u sed to interpret th is result as normal/abnormal . NRBC x10^3 (test code See_Comment [Auto mated = 2361140598) message] The s ystem which generated this result transmitted reference range : 10*3/?L. The reference range was not used to interpret this result as normal/abnormal . GRAN MAT (NEUT) % 48.6 % (test code = 770-8) IMM GRAN % (test code 0.20 % = 7661022875) LYMPH % (test code = 39.4 % 736-9) MONO % (test code = 9.3 % 5905-5) EOS % (test code = 1.9 % 713-8) BASO % (test code = 0.6 % 706-2) GRAN MAT x10^3(ANC) 2.36 10*3/uL 1.99-6.95 (test code = 9325890704) IMM GRAN x10^3 (test 0-0.06 code = 7801797757) LYMPH x10^3 (test code 1.91 10*3/uL 1.09-3.23 = 731-0) MONO x10^3 (test code 0.45 10*3/uL 0.36-1.02 = 742-7) EOS x10^3 (test code = 0.09 10*3/uL 0.06-0.53 711-2) BASO x10^3 (test code 0.03 10*3/uL 0.01-0.09 = 704-7) Lab Interpretation Abnormal (test code = 28813-3) [facility] 07:34:48 Test Item Value Reference Range Interpretation Comments MAGNESIUM (test code = 2068350500) 1.8 mg/dL 1.7-2.4 Lab Interpretation (test code = Normal 67238-6) [facility] [id number] 18:40:18 Test Item Value Reference Range Interpretation Comments PH (test code = 7.32-7.42 L 6156801842) PCO2 RUTHANN (test code = See_Comment [Auto mated message] 3249700223) The system [employer] generated this result transmitted ref erence range: 41 - 51 mmHg. The reference r meredith was not used to interpret this result as normal/abnor mal. PO2 RUTHANN (test code = See_Comment L [Autom ated message] 3937173379) The system [employer] generated this result transmitted ref erence range: 25 - 40 mmHg. The reference r meredith was not used to interpret this result as normal/abnor mal. HCO3 RUTHANN (test code = See_Comment L [Auto mated message] 4101993495) The system [employer] generated this result transmitted ref erence range: 24 - 28 mEq/L. The reference r meredith was not used to interpret this result as normal/abnor mal. AC VBE(BEAKER) (test mEq/L code = 8069367795) Lab Interpretation (test Abnormal code = 10796-2) 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 (NA, K, CL, CO2, GLUCOSE, BUN, CREATININE, CA)2022-04-03 18:33:26 Test Item Value Reference Range Interpretation Comments NA (test code = 129 mmol/L 135-145 L 1749779481) K (test code = 3.3 mmol/L 3.5-5 L 1771429027) CL (test code = 100 mmol/L 98-108 5352609915) CO2 TOTAL (test code = 19 mmol/L 23-31 L 9736417546) AGAP (test code = 2-16 0948266841) BUN (test code = 49 mg/dL 7-23 H 7609392492) GLUCOSE (test code = 75 mg/dL 70-110 7136793268) CREATININE (test code = 2.55 mg/dL 0.6-1.25 H 1643399805) CALCIUM (test code = 8.6 mg/dL 8.6-10.6 9704591007) eGFR (test code = mL/min/1.73m2 1995666223) GILBERTO (test code = GILBERTO) Association of Glomerular Filtration Rate (GFR) and Staging of Kidney Disease* + --+ --+ ------+| GFR (mL/min/1.73 m2) ?| With Kidney Damage ?| ?Without Kidney Damage+ --------+ --------+ +| ?>90 ?| ?Stage one ?| ? Normal ?+ ---+ ---+ -------+| ?60-89 ?| ?Stage two ?| ? Decreased GFR ? + --+ --+ ------+| ?30-59 ?| ?Stage three ?| ? Stage three ? + --+ --+ ------+| ?15-29 ?| ?Stage four ? | ? Stage four ?+ ---+ ---+ -------+| ?<15 (or dialysis) ? ?| ?Stage five ? | ? Stage five ?+ ---+ ---+ -------+ *Each stage assumes the associated GFR level has been in effect for at least three months. ?Stages 1 to 5, with or without kidney disease, indicate chronic kidney disease. Notes: Determination of stages one and two (with eGFR >59mL/min/1.73 m2) requires estimation of kidney damage for at least three months as defined by structural or functional abnormalities of the kidney, manifested by either:Pathological abnormalities or Markers of kidney damage (including abnormalities in the composition of the blood or urine or abnormalities in imaging tests). Lab Interpretation Abnormal (test code = 27322-6) [facility] CenterOSMOLALITY, SERUM OR [id number] 15:45:31 Test Item Value Reference Range Interpretation Comments OSMOLALITY (test code = See_Comment [Au tomated message] 3052-2) The system [employer] generated this result transmitted ref erence range: 278 - 30 5 mOsm/kg. The re ference range was not u sed to interpret this result as normal/abnor mal. Lab Interpretation (test Normal code = 95631-1) [facility] with [id number] 11:27:34 Test Item Value Reference Range Interpretation Comments WBC (test code = See_Comment [Automated 4590-2) message] The sy stem which generated this result transmitted reference range : 4.20 - 10.70 10*3/?L. The reference range was not used to interpret this result as normal/abnormal . RBC (test code = See_Comment L [Automated 789-8) message] The sy stem which generated this result transmitted reference range : 4.26 - 5.52 10*6/?L. The reference range was not used to interpret this result as normal/abnormal . HGB (test code = 11.1 g/dL 12.2-16.4 L 718-7) HCT (test code = 33.0 % 38.4-49.3 L 4544-3) MCV (test code = 84.0 fL 81.7-95.6 787-2) MCH (test code = 28.2 pg 26.1-32.7 785-6) MCHC (test code = 33.6 g/dL 31.2-35 786-4) RDW-SD (test code = 48.7 fL 38.5-51.6 22064-5) RDW-CV (test code = 15.9 % 12.1-15.4 H 788-0) PLT (test code = See_Comment [Automated 777-3) message] The sy stem which generated this result transmitted reference range : 150 - 328 10*3/ ?L. The reference r meredith was not used to interpret this result as normal/abnormal . MPV (test code = 9.4 fL 9.8-13 L 69541-4) NRBC/100 WBC (test See_Comment [Automat ed code = 3569520922) message] The system which generated this result transmitted reference range : 0.0 - 10.0 /100 WBCs. The refer ence range was not u sed to interpret th is result as normal/abnormal . NRBC x10^3 (test code See_Comment [Auto mated = 3562639356) message] The s ystem which generated this result transmitted reference range : 10*3/?L. The reference range was not used to interpret this result as normal/abnormal . GRAN MAT (NEUT) % 56.0 % (test code = 770-8) IMM GRAN % (test code 0.50 % = 4162487768) LYMPH % (test code = 33.2 % 736-9) MONO % (test code = 8.6 % 5905-5) EOS % (test code = 1.1 % 713-8) BASO % (test code = 0.6 % 706-2) GRAN MAT x10^3(ANC) 3.64 10*3/uL 1.99-6.95 (test code = 7687244329) IMM GRAN x10^3 (test 0.03 10*3/uL 0-0.06 code = 8226237079) LYMPH x10^3 (test code 2.16 10*3/uL 1.09-3.23 = 731-0) MONO x10^3 (test code 0.56 10*3/uL 0.36-1.02 = 742-7) EOS x10^3 (test code = 0.07 10*3/uL 0.06-0.53 711-2) BASO x10^3 (test code 0.04 10*3/uL 0.01-0.09 = 704-7) Lab Interpretation Abnormal (test code = 85107-3) [facility] Metabolic Panel (NA, K, CL, CO2, GLUCOSE, BUN, CREATININE, CA)2022-04-03 10:08:59 Test Item Value Reference Range Interpretation Comments NA (test code = 125 mmol/L 135-145 L 0351635282) K (test code = 3.7 mmol/L 3.5-5 6079695229) CL (test code = 96 mmol/L 98-108 L 6007257789) CO2 TOTAL (test code = 15 mmol/L 23-31 L 3783686706) AGAP (test code = 2-16 2304908415) BUN (test code = 50 mg/dL 7-23 H 5865215714) GLUCOSE (test code = 86 mg/dL 70-110 2204825189) CREATININE (test code = 3.86 mg/dL 0.6-1.25 H 1748522065) CALCIUM (test code = 8.6 mg/dL 8.6-10.6 3413153054) eGFR (test code = mL/min/1.73m2 7658678616) GILBERTO (test code = GILBERTO) Association of Glomerular Filtration Rate (GFR) and Staging of Kidney Disease* + --+ --+ ------+| GFR (mL/min/1.73 m2) ?| With Kidney Damage ?| ?Without Kidney Damage+ --------+ --------+ +| ?>90 ?| ?Stage one ?| ? Normal ?+ ---+ ---+ -------+| ?60-89 ?| ?Stage two ?| ? Decreased GFR ? + --+ --+ ------+| ?30-59 ?| ?Stage three ?| ? Stage three ? + --+ --+ ------+| ?15-29 ?| ?Stage four ? | ? Stage four ?+ ---+ ---+ -------+| ?<15 (or dialysis) ? ?| ?Stage five ? | ? Stage five ?+ ---+ ---+ -------+ *Each stage assumes the associated GFR level has been in effect for at least three months. ?Stages 1 to 5, with or without kidney disease, indicate chronic kidney disease. Notes: Determination of stages one and two (with eGFR >59mL/min/1.73 m2) requires estimation of kidney damage for at least three months as defined by structural or functional abnormalities of the kidney, manifested by either:Pathological abnormalities or Markers of kidney damage (including abnormalities in the composition of the blood or urine or abnormalities in imaging tests). Lab Interpretation Abnormal (test code = 53979-4) [facility] CenterL[facility] Whole Mvpse6073-13-14 04:09:02 Test Item Value Reference Range Interpretation Comments LACTIC ACID (test code = 1.54 mmol/L 0.5-2.2 5252067726) Lab Interpretation (test code = Normal 17706-4) [facility] CenterL[facility] Whole [id number] 00:25:08 Test Item Value Reference Range Interpretation Comments LACTIC ACID (test code = 2.50 mmol/L 0.5-2.2 H 3567412155) Lab Interpretation (test code = Abnormal 66240-7) [facility] WITH [id number] 20:19:45 Test Item Value Reference Range Interpretation Comments WBC (test code = See_Comment H [Automated 5138-2) message] The system which generated this result transmit dain reference range : 4.20 - 10.70 10*3/?L. The reference range was not used to interpret this result as normal/abnormal . RBC (test code = See_Comment [Automated 850-8) message] The system which generated this result transmit dain reference range : 4.26 - 5.52 10*6/?L. The reference range was not used to interpret this result as normal/abnormal . HGB (test code = 15.1 g/dL 12.2-16.4 718-7) HCT (test code = 44.0 % 38.4-49.3 4544-3) MCV (test code = 82.6 fL 81.7-95.6 787-2) MCH (test code = 28.3 pg 26.1-32.7 785-6) MCHC (test code = 34.3 g/dL 31.2-35 786-4) RDW-SD (test code = 49.8 fL 38.5-51.6 13925-6) RDW-CV (test code = 16.4 % 12.1-15.4 H 788-0) PLT (test code = See_Comment H [Automated 777-3) message] The system which generated this result transmit dain reference range : 150 - 328 10*3/ ?L. The reference range was not u sed to interpret th is result as normal/abnormal . MPV (test code = 10.7 fL 9.8-13 01570-8) NRBC/100 WBC (test See_Comment [Automat ed code = 4490366686) message] The system which generated this result transmit dain reference range : 0.0 - 10.0 /100 WBCs. The reference range was not used to interpret this result as normal/abnormal . NRBC x10^3 (test code See_Comment [Auto mated = 8466772824) message] The system which generated this result transmit dain reference range : 10*3/?L. The reference range was not used to interpret this result as normal/abnormal . GRAN MAT (NEUT) % 73.4 % (test code = 770-8) IMM GRAN % (test code 0.60 % = 2533700388) LYMPH % (test code = 17.2 % 736-9) MONO % (test code = 8.2 % 5905-5) EOS % (test code = 0.2 % 713-8) BASO % (test code = 0.4 % 706-2) GRAN MAT x10^3(ANC) 10.17 10*3/uL 1.99-6.95 H (test code = 6994012154) IMM GRAN x10^3 (test 0.09 10*3/uL 0-0.06 H code = 2460607374) LYMPH x10^3 (test code 2.38 10*3/uL 1.09-3.23 = 731-0) MONO x10^3 (test code 1.13 10*3/uL 0.36-1.02 H = 742-7) EOS x10^3 (test code = 0.03 10*3/uL 0.06-0.53 L 711-2) BASO x10^3 (test code 0.05 10*3/uL 0.01-0.09 = 704-7) Lab Interpretation Abnormal (test code = 79549-3) [facility] W/AUTO [id number] 00:06:00 Test Item Value Reference Range Interpretation Comments WHITE BLOOD CELL (test code = WBC) 5.2 K/uL 3.5-11.0 N RED BLOOD CELL (test code = RBC) 4.40 M/uL 4.00-5.60 N HEMOGLOBIN (test code = HGB) 12.8 GM/DL 12.5-16.9 N HEMATOCRIT (test code = HCT) 36.3 % 40.0-54.0 L MEAN CELL VOLUME (test code = MCV) 82.5 fL 81.0-99.0 N MEAN CELL HGB (test code = MCH) 29.1 pg 27.0-31.0 N MEAN CELL HGB CONCETRATION (test 35.3 GM/DL 33.0-37.0 N code = MCHC) RED CELL DISTRIBUTION WIDTH CV 16.9 % 11.5-14.5 H (test code = RDW) PLATELET COUNT (test code = PLT) 363 K/mm3 150-400 N MEAN PLATELET VOLUME (test code = 9.6 FL 8.8-13.1 N MPV) NEUTROPHIL % (test code = NT%) 60.0 % 40.0-76.0 N LYMPHOCYTE % (test code = LY%) 29.9 % 15.0-40.0 N MIXED % (test code = MX%) 10.1 % 3.0-15.0 N NEUTROPHIL # (test code = NT#) 3.1 K/uL 1.8-7.6 N LYMPHOCYTE # (test code = LY#) 1.6 K/uL 1.0-3.8 N MIXED # (test code = MX#) 0.5 k/mm3 0.1-0.8 N TROPONIN-I [id number] 15:07:00 Test Item Value Reference Range Interpretation Comments TROPONIN-I RAPID 0.00 ng/mL 0.00-0.08 N Performed b y certified (test code = 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 [facility]OP[facility]) Ctr Negative: < = 0.08 Positive: >= 0. 09An elevated tropon in value alone is not rodriguez fficient todiagnose a my ocardial infarction. Rat her, the patient sclinic al presentation (h istory, physical exam) and ECGshould be us ed in conjunction wit h troponin in thediagnosti c evaluation of s uspected myocardial infa rction. Aserial samplin g protocol is recommended to facilitate the identification of temporal changes in trop onin levels characteristic of DC. 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 [id number] 14:56:00 Test Item Value Reference Range Interpretation Comments SODIUM (test code = NA/ABG) 131 MEQ/L 134-147 L POTASSIUM (test code = K/ABG) 3.5 MEQ/L 3.4-5.0 N CHLORIDE (test code = CL/ABG) 94 MEQ/L 100-108 L CREATININE ABG (test code = 1.7 mg/dL 0.8-1.3 H CREAABG) POC IONIZED CALCIUM (test code = 1.12 MMOL/L 1.12-1.32 N POCCA) POC GLUCOSE (test code = POCGLU) 106 MG/DL 70-110 N - XR CHEST 1 [id number] 00:00:00 [facility] 1970 Sex: M FAX: Sabi Urias MD [phone] Gerry: CO St: REG Name: HOANG JOSEPH FSED : 1970 Age/S: 52/M [address] [facility]. Unit #: [id number] Loc: [place] [address] Phys: Sabi Urias MD Acct: [id number] Dis Date: Status: REG ER PHONE #: Exam Date: 03/29/2022 1505 FAX #: Reason: Weakness EXAMS: CPT CODE: [id number] XR CHEST 1 V 17159 PROCEDURE INFORMATION: Exam: XR Chest Exam date and time: 03/29/2022 2:31 PM Age: 52 years old Clinical indication: Other: Weakness; () TECHNIQUE: Imaging protocol: Radiologicexam of the chest. Views: 1 view. COMPARISON: CR XR CHEST 1V 06/27/2021 3:37 PM FINDINGS: Lungs: The lungs appear emphysematous. No appreciable pneumonia or edema. Pleural spaces: No appreciable pleural effusion or pneumothorax. Heart/Mediastinum: Cardiac silhouette within normal limits. Diaphragm: Moderate elevation left hemidiaphragm, unchanged. Bones/joints: Negative acute. IMPRESSION: COPD. Jaymie ctronically Signed by Renée Bailey on 03/29/2022 at 1530 Reported and signed by: Barrett Bailey M.D. CC: Sabi Urias MD Technologist: RT Simone(Esperanza)(CT) Trnazrd Date/Time/By: 03/29/2022 (1530) : By: GarettTTV Orig Print D/T: S: 03/29/2022 (1531) PAGE 1 Signed ReportHEPATIC FUNCTION [id number] 06:45:03 Test Item Value Reference Range Interpretation Comments TOTAL PROTEIN (BEAKER) (test code = 6.9 gm/dL 6.0-8.3 770) ALBUMIN (BEAKER) (test code = 1145) 4.2 g/dL 3.5-5.0 BILIRUBIN TOTAL (BEAKER) (test code 0.6 mg/dL 0.2-1.2 = 377) BILIRUBIN DIRECT (BEAKER) (test 0.2 mg/dL 0.1-0.5 code = 706) ALKALINE PHOSPHATASE (BEAKER) (test 90 U/L 40-150 code = 346) AST (SGOT) (BEAKER) (test code = 17 U/L 5-34 353) ALT (SGPT) (BEAKER) (test code = 13 U/L 6-55 347) Brokerage Manager ID Philipp HOOD W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 [id number] 06:45:02 Test Item Value Reference Range Interpretation Comments SODIUM (BEAKER) 131 meq/L 136-145 L (test code = 381) POTASSIUM (BEAKER) 3.4 meq/L 3.5-5.1 L (test code = 379) CHLORIDE (BEAKER) 106 meq/L 98-107 (test code = 382) CO2 (BEAKER) (test 17 meq/L 22-29 L code = 355) BLOOD UREA NITROGEN 40 mg/dL 7-21 H (BEAKER) (test code = 354) CREATININE (BEAKER) 1.38 mg/dL 0.57-1.25 H (test code = 358) GLUCOSE RANDOM 88 mg/dL 70-105 (BEAKER) (test code = 652) CALCIUM (BEAKER) 9.0 mg/dL 8.4-10.2 (test code = 697) EGFR (BEAKER) (test 54 mL/min/1.73 ESTIMA DAIN GFR IS code = 1092) sq m NOT ACCURATE CREATININE CLEARANCE IN PREDICTING GLOMERULAR FILTRATION RATE . ESTIMATED GFR I S NOT APPLICABLE FOR DIALYSIS PATIEN TS. Brokerage Manager ID Philipp HOOD WCBC W/PLT COUNT & AUTO [id number] 06:26:54 Test Item Value Reference Range Interpretation Comments WHITE BLOOD CELL COUNT (BEAKER) 6.8 K/ L 3.5-10.5 (test code = 775) RED BLOOD CELL COUNT (BEAKER) 4.44 M/ L 4.63-6.08 L (test code = 761) HEMOGLOBIN (BEAKER) (test code = 12.1 GM/DL 13.7-17.5 L 410) HEMATOCRIT (BEAKER) (test code = 36.8 % 40.1-51.0 L 411) MEAN CORPUSCULAR VOLUME (BEAKER) 82.9 fL 79.0-92.2 (test code = 753) MEAN CORPUSCULAR HEMOGLOBIN 27.3 pg 25.7-32.2 (BEAKER) (test code = 751) MEAN CORPUSCULAR HEMOGLOBIN CONC 32.9 GM/DL 32.3-36.5 (BEAKER) (test code = 752) RED CELL DISTRIBUTION WIDTH 17.2 % 11.6-14.4 H (BEAKER) (test code = 412) PLATELET COUNT (BEAKER) (test 309 K/CU MM 150-450 code = 756) MEAN PLATELET VOLUME (BEAKER) 9.6 fL 9.4-12.4 (test code = 754) NUCLEATED RED BLOOD CELLS 0 /100 WBC 0-0 (BEAKER) (test code = 413) NEUTROPHILS RELATIVE PERCENT 59 % (BEAKER) (test code = 429) LYMPHOCYTES RELATIVE PERCENT 30 % (BEAKER) (test code = 430) MONOCYTES RELATIVE PERCENT 9 % (BEAKER) (test code = 431) EOSINOPHILS RELATIVE PERCENT 1 % (BEAKER) (test code = 432) BASOPHILS RELATIVE PERCENT 1 % (BEAKER) (test code = 437) NEUTROPHILS ABSOLUTE COUNT 3.99 K/ L 1.78-5.38 (BEAKER) (test code = 670) LYMPHOCYTES ABSOLUTE COUNT 2.03 K/ L 1.32-3.57 (BEAKER) (test code = 414) MONOCYTES ABSOLUTE COUNT (BEAKER) 0.62 K/ L 0.30-0.82 (test code = 415) EOSINOPHILS ABSOLUTE COUNT 0.09 K/ L 0.04-0.54 (BEAKER) (test code = 416) BASOPHILS ABSOLUTE COUNT (BEAKER) 0.04 K/ L 0.01-0.08 (test code = 417) IMMATURE GRANULOCYTES-RELATIVE 0 % 0-1 PERCENT (BEAKER) (test code = 2801) U/S, RENAL, [id number] 19:23:00Reason for exam:->acute kidney injury [facility] 1970 Sex: MFINAL REPORT TECHNIQUE: Grayscale ultrasound of the kidneys and bladder with Dopplerand spectral analysis. INDICATION: acute kidney injury. COMPARISON: None. FINDINGS: RIGHT KIDNEY: The right kidney is 9.5 x 4.3 x 4.5 cm. Cortical thickness is 0.9 cm. No solid mass lesions. No hydronephrosis. Renal artery and vein are patent. LEFT KIDNEY: The left kidney is 10.4 x 4.4 x 4.1 cm. Cortical thickness is 1.2 cm. No solid mass lesions. No hydronephrosis. Renal artery and vein are patent. BLADDER: Unremarkable. IMPRESSION:Unremarkable ultrasound of the kidneys. Signed: Amberly Praterort Verified Date/Time: 03/06/2022 19:23:41 -COV2/RT-PCR ([facility])2022-03-06 19:17:07 Test Item Value Reference Range Interpretation Comments SARS-COV2/RT-PCR Negative Negative The SARS-Co V-2 target (test code = nucleic acids a re not [id number]) detected in thi s specimen. Negative result s do not preclude SARS-C oV-2 infection and s hould not be used as the richard e basis for patient managem ent decisions. Nega tive results must be combine d with clinical observ ations, patient history , and epidemiological information. A false negativ e result may occur if a spec imen is improperly pat ected, transported or handled. This SARS CoV-2 test is a rapid, real-time RT-PC R test intended for th e qualitative detection of nu cleic acid from SARS-CoV-2 in a nasopharyngeal swab specimen collected from individuals suspected of CO VID-19 by their healthcar e provider. This test has been authorized by FDA under an EUA for use by authorized laboratories. This test is only authorized for the duration of the declaration that circumstances exist justifying the authorization of emergency use of in vitro diagnostic tests for detection and/or diagnosis of COVID-19 under Section 564(b)(1) of the Federal Food, Drug and Cosmetic Act, 21 U.S.C. 360bbb-3(b)(1), unless the authorization is terminated or revoked sooner. Fact Sheet for Healthcare Providers: https://www.[employer] m/Documents/Xpert%20Xpress%20SARS%20CoV-2/Fact%20Sheets/3023802%67KHDC-HBZ-6%20 HEALTHCARE%20PROVIDERS%20FACT%20SHEET.pdf Fact Sheet for Healthcare Patients: https://www.[employer]/Documents/Xpert%20Xp ress%20SARS%20CoV-2/Fact%20Sheets/3023801%61YQPO-FYV-0%20PATIENT%20FACT%20SHEET .pdfCREATINE KINASE (CK)2022-03-06 16:19:14 Test Item Value Reference Range Interpretation Comments CREATINE KINASE TOTAL (BEAKER) (test 141 U/L 29-200 code = 380) Brokerage Manager ID - BST4, [id number] 15:13:16 Test Item Value Reference Range Interpretation Comments FREE T4 (BEAKER) (test code = 655) 0.95 ng/dL 0.70-1.48 Brokerage Manager ID - BSTSH/FREE T4 IF [id number] 15:13:16 Test Item Value Reference Range Interpretation Comments THYROID STIMULATING HORMONE 2.060 uIU/mL 0.350-4.940 (BEAKER) (test code = 772) Brokerage Manager ID - BSB-TYPE NATRIURETIC FACTOR (BNP)2022-03-06 14:26:30 Test Item Value Reference Range Interpretation Comments B-TYPE NATRIURETIC PEPTIDE (BEAKER) < pg/mL 0-100 (test code = 700) Brokerage Manager ID - JSHIGH SENSITIVITY TROPONIN [id number] 14:14:54 Test Item Value Reference Range Interpretation Comments HIGH SENSITIVITY < pg/ml See_Comment [Automated message] TROPONIN I (test code = The system which [id number]) generated this result transmitted ref erence range: <=35. Th e reference range was not used to interpr et this result as normal/abnormal . Brokerage Manager ID - JSThe FABRICATOR ARTIFICIAL BREAST STAT High Sensitivity Troponin-I results should be used in conjunctionwith other diagnostic information such as ECG, clinical observations and information, and patient symptoms to aid in the diagnosis of DC.RAD, CHEST, 1 VIEW, NON [id number] 14:10:00Reason for exam:- >NEUROLOGIC PROBLEMShould this be performed at the bedside?->Yes [facility] 1970 Sex: MFINAL REPORT Chest, 1 view, 03/06/2022 2:03 PM. History: Neurologic problem. Comparison: 03/28/2019. Discussion: The cardiomediastinal silhouette and pulmonary vasculature are within normal limits for a portable exam. The lungs are clear without evidence of consolidation or effusion. The soft tissues and osseous structures are intact. IMPRESSION: No acute cardiopulmonary abnormality. Signed: Alona Brown [facility] Verified Date/Time: 03/06/2022 14:10:44 REHENSIVE METABOLIC [id number] 14:08:22 Test Item Value Reference Range Interpretation Comments TOTAL PROTEIN 7.8 gm/dL 6.0-8.3 (BEAKER) (test code = 770) ALBUMIN (BEAKER) 4.8 g/dL 3.5-5.0 (test code = 1145) ALKALINE PHOSPHATASE 98 U/L 40-150 (BEAKER) (test code = 346) BILIRUBIN TOTAL 0.6 mg/dL 0.2-1.2 (BEAKER) (test code = 377) SODIUM (BEAKER) (test 127 meq/L 136-145 L code = 381) POTASSIUM (BEAKER) 3.4 meq/L 3.5-5.1 L (test code = 379) CHLORIDE (BEAKER) 101 meq/L 98-107 (test code = 382) CO2 (BEAKER) (test 15 meq/L 22-29 L code = 355) BLOOD UREA NITROGEN 52 mg/dL 7-21 H (BEAKER) (test code = 354) CREATININE (BEAKER) 2.70 mg/dL 0.57-1.25 H (test code = 358) GLUCOSE RANDOM 111 mg/dL 70-105 H (BEAKER) (test code = 652) CALCIUM (BEAKER) 10.0 mg/dL 8.4-10.2 (test code = 697) AST (SGOT) (BEAKER) 21 U/L 5-34 (test code = 353) ALT (SGPT) (BEAKER) 15 U/L 6-55 (test code = 347) EGFR (BEAKER) (test 25 mL/min/1.73 ESTIMA DAIN GFR IS code = 1092) sq m NOT ACCURATE CREATININE CLEARANCE IN PREDICTING GLOMERULAR FILTRATION RATE . ESTIMATED GFR I S NOT APPLICABLE FOR DIALYSIS PATIEN TS. Brokerage Manager ID - [id number] 14:07:49 Test Item Value Reference Range Interpretation Comments MAGNESIUM (BEAKER) (test code = 2.0 mg/dL 1.6-2.6 627) Brokerage Manager ID - [id number] 14:07:49 Test Item Value Reference Range Interpretation Comments PHOSPHORUS (BEAKER) (test code = 5.6 mg/dL 2.3-4.7 H 604) Brokerage Manager ID - JSLACTIC ACID, [id number] 13:51:04 Test Item Value Reference Range Interpretation Comments LACTATE BLOOD VENOUS 1.32 mmol/L 0.50-2.20 Specime n slightly (2) (BEAKER) (test hemolyzed code = 6057) Brokerage Manager ID - JSCBC W/PLT COUNT & AUTO [id number] 13:47:24 Test Item Value Reference Range Interpretation Comments WHITE BLOOD CELL COUNT (BEAKER) 10.9 K/ L 3.5-10.5 H (test code = 775) RED BLOOD CELL COUNT (BEAKER) 4.75 M/ L 4.63-6.08 (test code = 761) HEMOGLOBIN (BEAKER) (test code = 13.0 GM/DL 13.7-17.5 L 410) HEMATOCRIT (BEAKER) (test code = 38.6 % 40.1-51.0 L 411) MEAN CORPUSCULAR VOLUME (BEAKER) 81.3 fL 79.0-92.2 (test code = 753) MEAN CORPUSCULAR HEMOGLOBIN 27.4 pg 25.7-32.2 (BEAKER) (test code = 751) MEAN CORPUSCULAR HEMOGLOBIN CONC 33.7 GM/DL 32.3-36.5 (BEAKER) (test code = 752) RED CELL DISTRIBUTION WIDTH 16.8 % 11.6-14.4 H (BEAKER) (test code = 412) PLATELET COUNT (BEAKER) (test 378 K/CU MM 150-450 code = 756) MEAN PLATELET VOLUME (BEAKER) 9.6 fL 9.4-12.4 (test code = 754) NUCLEATED RED BLOOD CELLS 0 /100 WBC 0-0 (BEAKER) (test code = 413) NEUTROPHILS RELATIVE PERCENT 70 % (BEAKER) (test code = 429) LYMPHOCYTES RELATIVE PERCENT 21 % (BEAKER) (test code = 430) MONOCYTES RELATIVE PERCENT 8 % (BEAKER) (test code = 431) EOSINOPHILS RELATIVE PERCENT 0 % (BEAKER) (test code = 432) BASOPHILS RELATIVE PERCENT 1 % (BEAKER) (test code = 437) NEUTROPHILS ABSOLUTE COUNT 7.63 K/ L 1.78-5.38 H (BEAKER) (test code = 670) LYMPHOCYTES ABSOLUTE COUNT 2.26 K/ L 1.32-3.57 (BEAKER) (test code = 414) MONOCYTES ABSOLUTE COUNT (BEAKER) 0.83 K/ L 0.30-0.82 H (test code = 415) EOSINOPHILS ABSOLUTE COUNT 0.04 K/ L 0.04-0.54 (BEAKER) (test code = 416) BASOPHILS ABSOLUTE COUNT (BEAKER) 0.06 K/ L 0.01-0.08 (test code = 417) IMMATURE GRANULOCYTES-RELATIVE 1 % 0-1 PERCENT (BEAKER) (test code = 2801) SARS-CoV-2 ORF1ab Resp Ql OLENA+[id number] 01:07:20 Test Item Value Reference Range Interpretation Comments Hospitalized? (test No code = 01120-2) ICU? (test code = No 10089-0) Symptomatic as No defined by CDC? (test code = 15983-6) Employed in No Healthcare? (test code = 04392-7) Resident in a No congregate care setting (including nursing homes, residential care for people with intellectual and developmental disabilities, psychiatric treatment facilities, group homes, board and care homes, homeless senior care, foster care or other): (test code = 76080-8) SARS-CoV-2 ORF1ab NOT DETECTED Not Detected INTERPRETA TION: No Resp Ql OLENA+probe detectable levels of (test code = SARS-CoV-2 82768-4) Coronavirus (COVID-19) were present in this patient's sampl e by this test. A no t detected result does not exclude the possibility of active infection with this virus due to ot her factors that ma y affect the resu lts such as a poorl y collected sampl e, viral titers be low the limit of detection of th e assay, and the infrequent possibility of inhibitors in t he sample. This re sult should be inter preted in conjunction with clinical, radiographic, a nd other laborator y findings and sh ould not be used as the sole indicator of active infectio n with SARS-CoV-2 Coronavirus (COVID-19).COMM ENT: This Hologic Ap leatha SARS-CoV-2 mole cular diagnostic assa y utilizes Field Human Resources Manager Mediated Amplification ( TMA) technology to r apidly detect the SARS -CoV-2 (COVID-19) viru s from respiratory adriana ples. In accordance with\\XC2A0\\the FDA's guidance docume nt "Policy for Diagnostic Test s for Coronavirus Disease-2019 du ring the Public Heal th Emergency", amalia s test was developed, and its performance characteristics were verified by the [facility] molecular diagn ostics laboratory and is authorized for clinical diagno stic use. \\XC2A0\\Amalia s laboratory is certified under the Clinical Labora tory Improvement Amendments (CLI A) as qualified to pe rform high complexity clinical labora tory testing. SARS-CoV-2 ORF1ab Resp Ql OLENA+[id number] 23:25:40 Test Item Value Reference Range Interpretation Comments Hospitalized? (test No code = 23384-5) ICU? (test code = No 32345-4) Symptomatic as No defined by CDC? (test code = 49928-6) Employed in No Healthcare? (test code = 99289-2) Resident in a No congregate care setting (including nursing homes, residential care for people with intellectual and developmental disabilities, psychiatric treatment facilities, group homes, board and care homes, homeless senior care, foster care or other): (test code = 56278-8) SARS-CoV-2 ORF1ab NOT DETECTED Not Detected INTERPRETA TION: No Resp Ql OLENA+probe detectable levels of (test code = SARS-CoV-2 93200-6) Coronavirus (COVID-19) were present in this patient's sampl e by this test. A no t detected result does not exclude the possibility of active infection with this virus due to ot her factors that ma y affect the resu lts such as a poorl y collected sampl e, viral titers be low the limit of detection of th e assay, and the infrequent possibility of inhibitors in t he sample. This re sult should be inter preted in conjunction with clinical, radiographic, a nd other laborator y findings and sh ould not be used as the sole indicator of active infectio n with SARS-CoV-2 Coronavirus (COVID-19).COMM ENT: This Hologic Ap leatha SARS-CoV-2 mole cular diagnostic assa y utilizes Field Human Resources Manager Mediated Amplification ( TMA) technology to r apidly detect the SARS -CoV-2 (COVID-19) viru s from respiratory adriana ples. In accordance with\\XC2A0\\the FDA's guidance docume nt "Policy for Diagnostic Test s for Coronavirus Disease-2019 du ring the Public Heal Emergency", amalia s test was developed, and its performance characteristics were verified by the [facility] molecular diagn ostics laboratory and is authorized for clinical diagno stic use. \\XC2A0\\Amalia s laboratory is certified under the Clinical Labora tory Improvement Amendments (CLI A) as qualified to pe rform high complexity clinical labora tory testing. HIV 1+2 Ab+HIV1 p24 Ag SerPl Ql [id number] 07:02:58 Test Item Value Reference Range Interpretation Comments HIV 1+2 Ab+HIV1 p24 Ag SerPl Ql IA NEGATIVE Negative (test code = 30397-3) SARS-CoV-2 ORF1ab Resp Ql OLENA+[id number] 19:57:49 Test Item Value Reference Range Interpretation Comments Hospitalized? (test No code = 62272-3) ICU? (test code = No 40593-1) Symptomatic as No defined by CDC? (test code = 87995-2) Employed in No Healthcare? (test code = 26739-7) Resident in a No congregate care setting (including nursing homes, residential care for people with intellectual and developmental disabilities, psychiatric treatment facilities, group homes, board and care homes, homeless senior care, foster care or other): (test code = 90114-5) SARS-CoV-2 ORF1ab NOT DETECTED Not Detected INTERPRETA TION: No Resp Ql OLENA+probe detectable levels of (test code = SARS-CoV-2 28736-5) Coronavirus (COVID-19) were present in this patient's sampl e by this test. A no t detected result does not exclude the possibility of active infection with this virus due to ot her factors that ma y affect the resu lts such as a poorl y collected sampl e, viral titers be low the limit of detection of th e assay, and the infrequent possibility of inhibitors in t he sample. This re sult should be inter preted in conjunction with clinical, radiographic, a nd other laborator y findings and sh ould not be used as the sole indicator of active infectio n with SARS-CoV-2 Coronavirus (COVID-19).COMM ENT: This Hologic Ap leatha SARS-CoV-2 mole cular diagnostic assa y utilizes Field Human Resources Manager Mediated Amplification ( TMA) technology to r apidly detect the SARS -CoV-2 (COVID-19) viru s from respiratory adriana ples. In accordance with\\XC2A0\\the FDA's guidance docume nt "Policy for Diagnostic Test s for Coronavirus Disease-2019 du ring the Public Heal Emergency", thi s test was developed, and its performance characteristics were verified by the [facility] molecular diagn ostics laboratory and is authorized for clinical diagno stic use. \\XC2A0\\Thi s laboratory is certified under the Clinical Labora tory Improvement Amendments (CLI A) as qualified to pe rform high complexity clinical labora tory testing. SARS-CoV-2 ORF1ab Resp Ql OLENA+[id number] 20:25:16 Test Item Value Reference Range Interpretation Comments Hospitalized? (test No code = 31155-7) ICU? (test code = No 70604-5) Symptomatic as No defined by CDC? (test code = 41323-3) Employed in No Healthcare? (test code = 35747-7) Resident in a No congregate care setting (including nursing homes, residential care for people with intellectual and developmental disabilities, psychiatric treatment facilities, group homes, board and care homes, homeless senior care, foster care or other): (test code = 83061-1) SARS-CoV-2 ORF1ab NOT DETECTED Not Detected INTERPRETA TION: No Resp Ql OLENA+probe detectable levels of (test code = SARS-CoV-2 88381-5) Coronavirus (COVID-19) were present in this patient's sampl e by this test. A no t detected result does not exclude the possibility of active infection with this virus due to ot her factors that ma y affect the resu lts such as a poorl y collected sampl e, viral titers be low the limit of detection of th e assay, and the infrequent possibility of inhibitors in t he sample. This re sult should be inter preted in conjunction with clinical, radiographic, a nd other laborator y findings and sh ould not be used as the sole indicator of active infectio n with SARS-CoV-2 Coronavirus (COVID-19).COMM ENT: This Hologic Ap leatha SARS-CoV-2 mole cular diagnostic assa y utilizes Field Human Resources Manager Mediated Amplification ( TMA) technology to r apidly detect the SARS -CoV-2 (COVID-19) viru s from respiratory adriana ples. In accordance with\\XC2A0\\the FDA's guidance docume nt "Policy for Diagnostic Test s for Coronavirus Disease-2019 du ring the Public Heal th Emergency", amalia s test was developed, and its performance characteristics were verified by the [facility] molecular diagn ostics laboratory and is authorized for clinical diagno stic use. \\XC2A0\\Thi s laboratory is certified under the Clinical Labora tory Improvement Amendments (CLI A) as qualified to pe rform high complexity clinical labora tory testing. CBC W/AUTO [id number] 23:52:00 Test Item Value Reference Range Interpretation Comments WHITE BLOOD CELL (test code = WBC) 6.8 K/uL 3.5-11.0 N RED BLOOD CELL (test code = RBC) 3.70 M/uL 4.00-5.60 L HEMOGLOBIN (test code = HGB) 11.1 GM/DL 12.5-16.9 L HEMATOCRIT (test code = HCT) 32.7 % 40.0-54.0 L MEAN CELL VOLUME (test code = MCV) 88.4 fL 81.0-99.0 N MEAN CELL HGB (test code = MCH) 30.0 pg 27.0-31.0 N MEAN CELL HGB CONCETRATION (test 33.9 GM/DL 33.0-37.0 N code = MCHC) RED CELL DISTRIBUTION WIDTH CV 14.3 % 11.5-14.5 N (test code = RDW) PLATELET COUNT (test code = PLT) 415 K/mm3 150-400 H MEAN PLATELET VOLUME (test code = 9.4 FL 8.8-13.1 N MPV) NEUTROPHIL % (test code = NT%) 54.0 % 40.0-76.0 N LYMPHOCYTE % (test code = LY%) 34.1 % 15.0-40.0 N MIXED % (test code = MX%) 11.9 % 3.0-15.0 N NEUTROPHIL # (test code = NT#) 3.7 K/uL 1.8-7.6 N LYMPHOCYTE # (test code = LY#) 2.3 K/uL 1.0-3.8 N MIXED # (test code = MX#) 0.8 k/mm3 0.1-0.8 N LIVER [id number] 20:04:00 Test Item Value Reference Range Interpretation Comments TOTAL PROTEIN (test code 6.7 GM/DL 5.0-8.0 N Per formed by = PROT) 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 [facility] ed Ctr ALBUMIN (test code = 3.4 g/dL 3.4-5.0 N ALB) BILIRUBIN TOTAL (test 0.4 MG/DL 0.0-1.0 N code = BILT) SGOT/AST (test code = 19 IUnit/L 15-37 N AST) SGPT/ALT (test code = 19 IUnit/L 30-65 L ALT) GAMMA GLUTAMYL 13 UNITS/L 5-85 N TRANSPEPTIDASE (test code = GGT) ALKALINE PHOSPHATASE 82 IUNIT/L 20-125 N TOTAL (test code = ALKP) AMYLASE (test code = 67 UNITS/L 25-125 N LYNDSEY) 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 [id number] 19:54:00 Test Item Value Reference Range Interpretation Comments SODIUM (test code = NA/ABG) 138 MEQ/L 134-147 N POTASSIUM (test code = K/ABG) 3.7 MEQ/L 3.4-5.0 N CHLORIDE (test code = CL/ABG) 98 MEQ/L 100-108 L CREATININE ABG (test code = 1.2 mg/dL 0.8-1.3 N CREAABG) POC IONIZED CALCIUM (test code = 1.17 MMOL/L 1.12-1.32 N POCCA) POC GLUCOSE (test code = POCGLU) 81 MG/DL - CT ABD PELVIS [id number] 00:00:00 [facility] 1970 Sex: M Name: HOANG JOSEPH FSED : 1970 Age/S: 51 / M [address] [facility] Unit #: [id number] Loc: [place] [address] Phys: Raffaele Levi MD Acct: [id number] Dis Date: Status: PRE ER PHONE #: Exam Date: 09/23/20211999 FAX #: Reason: RUQ PAIN, VOMITING EXAMS: CPT CODE: [id number] CT ABD PELVIS W/CONT 74525 PROCEDURE INFORMATION: Exam: CT Abdomen And Pelvis With Contrast Exam date and time: 09/23/2021 7:51 PMAge: 51 years old Clinical indication: Abdominal pain; Additional info: Ruq pain, vomiting TECHNIQUE: Imaging protocol: Computed tomography of the abdomen and pelvis with contrast. Radiation optimization: All CT scans at this facility use at least one of these dose optimization techniques: automated exposure control; mA and/or kV adjustment per patient size (includes targeted exams where dose is matched to clinical indication); or iterative reconstruction. Contrast material: ISOVUE 300; Contrast volume: 100 ml; Contrast route: INTRAVENOUS (IV); COMPARISON: CT ABD PELVIS W/CONT 06/27/2021 4:14 PM FINDINGS: Lungs: Mild right basilar atelectasis or scarring. Liver: The left hepatic lobe is not present. No right hepatic lobe abnormality identified. Gallbladder and bile ducts: Gallbladder is contracted. No calcified gallstones are seen. Pancreas: Normal. No ductal dilation. Spleen: Spleen is normal size. Mild splenic varices may be present. Adrenal glands: Normal. No mass. Kidneys and ureters: Punctate 2 mm nonobstructing left renal calculus versus excreted contrast. Bilateral kidneys otherwise normal. Stomach and bowel: The colon has been removed. Mild to moderate wall thickening of few left abdominal small bowel loops are seen. No dilated bowel loops are seen. Right lower quadrant ileostomy present with peristomal fat containing hernia once again seen. Appendix: Not visualized. Intraperitonealspace: No free air or free fluid in the abdomen or pelvis. Vasculature: Abdominal aorta is normal caliber. Lymph nodes: Subcentimeter short axis lymph nodes present. Urinary bladder: Bladder is partially distended with fluid. Reproductive: Unremarkable as visualized. Bones/joints: No suspicious osseous abnormality identified. IMPRESSION: 1. Nonspecific mild to moderate wall thickening of few left PAGE 1 Signed Report (CONTINUED) Name: HOANG JOSEPH FSED : 1970 Age/S: 51 / M [address] [facility] Unit #: [id number] Loc: [place] [address] Phys: Raffaele Levi MD Acct: [id number] Dis Date: Status: PRE ER PHONE #: Exam Date: 09/23/20211999 FAX #: Reason: RUQ PAIN, VOMITING EXAMS: CPT CODE: [id number] CT ABD PELVIS W/CONT 32935 <Continued> abdominal small bowel loops may relate to incom plete luminal distention or enteritis. 2. 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 No obstruction. at 2048 Reported and signed by: Juan Juarez M.D. CC: Raffaele Levi MD Technologist:Stephanie Albrecht, RT(R)(CT) CTDI: DLP: Trnscb Date/Time: 09/23/2021 (2048) t.SDR.SG9 Orig Print D/T: S: 09/23/2021 (2049) PAGE 2 Signed ReportCOMP. METABOLIC PANEL ([id number])2021-09-14 03:57:44 Test Item Value Reference Range Interpretation Comments NA (test code = 132 mmol/L 135-145 L 8401260039) K (test code = 4.1 mmol/L 3.5-5.0 9144327812) CL (test code = 101 mmol/L 98-108 0126690822) CO2 TOTAL (test code = 23 mmol/L 23-31 8949559385) AGAP (test code = 2-16 1540609094) BUN (test code = 23 mg/dL 7-23 5955191873) GLUCOSE (test code = 97 mg/dL 70-110 0252110582) CREATININE (test code = 1.48 mg/dL 0.60-1.25 H 8267321753) TOTAL BILI (test code = 0.3 mg/dL 0.1-1.7 4697273624) CALCIUM (test code = 9.0 mg/dL 8.6-10.6 1032308622) T PROTEIN (test code = 6.2 g/dL 6.3-8.2 L 5650789887) ALBUMIN (test code = 3.7 g/dL 3.5-5.0 6668923508) ALK PHOS (test code = 82 U/L 34-122 7484874318) ALTv (test code = 21 U/L 5-50 1742-6) AST(SGOT) (test code = 20 U/L 13-40 1450577438) eGFR (test code = mL/min/1.73m2 2405799566) GILBERTO (test code = GILBERTO) Association of Glomerular Filtration Rate (GFR) and Staging of Kidney Disease* + --+ --+ ------+| GFR (mL/min/1.73 m2) ?| With Kidney Damage ?| ?Without Kidney Damage+ --------+ --------+ +| ?>90 ?| ?Stage one ?| ? Normal ?+ ---+ ---+ -------+| ?60-89 ?| ?Stage two ?| ? Decreased GFR ? + --+ --+ ------+| ?30-59 ?| ?Stage three ?| ? Stage three ? + --+ --+ ------+| ?15-29 ?| ?Stage four ? | ? Stage four ?+ ---+ ---+ -------+| ?<15 (or dialysis) ? ?| ?Stage five ? | ? Stage five ?+ ---+ ---+ -------+ *Each stage assumes the associated GFR level has been in effect for at least three months. ?Stages 1 to 5, with or without kidney disease, indicate chronic kidney disease. Notes: Determination of stages one and two (with eGFR >59mL/min/1.73 m2) requires estimation of kidney damage for at least three months as defined by structural or functional abnormalities of the kidney, manifested by either:Pathological abnormalities or Markers of kidney damage (including abnormalities in the composition of the blood or urine or abnormalities in imaging tests). Lab Interpretation Abnormal (test code = 48684-7) [facility] WITH [id number] 03:52:42 Test Item Value Reference Range Interpretation Comments WBC (test code = See_Comment [Automated 3434-2) message] The sy stem which generated this result transmitted reference range : 4.20 - 10.70 10*3/?L. The reference range was not used to interpret this result as normal/abnormal . RBC (test code = See_Comment L [Automated 286-8) message] The sy stem which generated this result transmitted reference range : 4.26 - 5.52 10*6/?L. The reference range was not used to interpret this result as normal/abnormal . HGB (test code = 10.0 g/dL 12.2-16.4 L 718-7) HCT (test code = 30.3 % 38.4-49.3 L 4544-3) MCV (test code = 91.3 fL 81.7-95.6 787-2) MCH (test code = 30.1 pg 26.1-32.7 785-6) MCHC (test code = 33.0 g/dL 31.2-35.0 786-4) RDW-SD (test code = 47.2 fL 38.5-51.6 30680-6) RDW-CV (test code = 14.0 % 12.1-15.4 788-0) PLT (test code = See_Comment H [Automated 777-3) message] The sy stem which generated this result transmitted reference range : 150 - 328 10*3/ ?L. The reference r meredith was not used to interpret this result as normal/abnormal . MPV (test code = 9.2 fL 9.8-13.0 L 38730-8) NRBC/100 WBC (test See_Comment [Automat ed code = 9868838934) message] The system which generated this result transmitted reference range : 0.0 - 10.0 /100 WBCs. The refer ence range was not u sed to interpret th is result as normal/abnormal . NRBC x10^3 (test code <0.01 See_Comment [Auto mated = 9412296426) message] The s ystem which generated this result transmitted reference range : 10*3/?L. The reference range was not used to interpret this result as normal/abnormal . GRAN MAT (NEUT) % 61.3 % (test code = 770-8) IMM GRAN % (test code 0.20 % = 0870049115) LYMPH % (test code = 23.1 % 736-9) MONO % (test code = 13.7 % 5905-5) EOS % (test code = 1.5 % 713-8) BASO % (test code = 0.2 % 706-2) GRAN MAT x10^3(ANC) 2.78 10*3/uL 1.99-6.95 (test code = 6110714585) IMM GRAN x10^3 (test <0.03 0.00-0.06 code = 0927821960) LYMPH x10^3 (test code 1.05 10*3/uL 1.09-3.23 L = 731-0) MONO x10^3 (test code 0.62 10*3/uL 0.36-1.02 = 742-7) EOS x10^3 (test code = 0.07 10*3/uL 0.06-0.53 711-2) BASO x10^3 (test code <0.03 0.01-0.09 = 704-7) Lab Interpretation Abnormal (test code = 01139-1) [facility] [id number] 13:36:34 Test Item Value Reference Interpretation Comments Range TROPONIN I (test 0.001 ng/mL See_Comment [Automated code = 6996935500) message] The system which generated this result transmitted reference range : <=0.034. The reference range was not used to interpret this result as normal/abnormal . GILBERTO (test code = Reference (Normal) GILBERTO) Range (defined by the 99th percentile reference limit): <= 0.034 ng/mL Note: Cardiac troponin begins to rise 3-4 hours after the onset of ischemia. Repeat in 4-6 hours if the sample was drawn within 3-4 hours of the onset of the symptom and found normal. Diagnosis of myocardial injury is made with acute changes in cTn concentrations with at least one serial sample above the 99th percentile upper reference limit (URL), taken together with the patient's clinical presentation. Biotin has been reported to cause a negative bias, interpret results relative to patient's use of biotin. Lab Interpretation Normal (test code = 01811-7) [facility] Center[facility]AL [id number] 13:36:34 Test Item Value Reference Range Interpretation Comments NT-proBNP (test code 79 pg/mL See_Comment [Autom ated = 0604367285) message] The system which generated this result transmitted reference range : <=125. The reference range was not used to interpret this result as normal/abnormal . GILBERTO (test code = GILBERTO) Biotin has been reported to cause a negative bias, interpret results relative to patient's use of biotin. Lab Interpretation Normal (test code = 78482-5) [facility] METABOLIC PANEL (NA, K, CL, CO2, GLUCOSE, BUN, CREATININE, CA)2021-09-12 13:24:32 Test Item Value Reference Range Interpretation Comments NA (test code = 134 mmol/L 135-145 L 0678717751) K (test code = 4.3 mmol/L 3.5-5.0 4282730802) CL (test code = 102 mmol/L 98-108 0066780873) CO2 TOTAL (test code = 23 mmol/L 23-31 6098676761) AGAP (test code = 2-16 5087951462) BUN (test code = 22 mg/dL 7-23 4509655372) GLUCOSE (test code = 89 mg/dL 70-110 7616988861) CREATININE (test code = 1.69 mg/dL 0.60-1.25 H 7092690010) CALCIUM (test code = 9.0 mg/dL 8.6-10.6 9762020331) eGFR (test code = mL/min/1.73m2 1684351242) GILBERTO (test code = GILBERTO) Association of Glomerular Filtration Rate (GFR) and Staging of Kidney Disease* + --+ --+ ------+| GFR (mL/min/1.73 m2) ?| With Kidney Damage ?| ?Without Kidney Damage+ --------+ --------+ +| ?>90 ?| ?Stage one ?| ? Normal ?+ ---+ ---+ -------+| ?60-89 ?| ?Stage two ?| ? Decreased GFR ? + --+ --+ ------+| ?30-59 ?| ?Stage three ?| ? Stage three ? + --+ --+ ------+| ?15-29 ?| ?Stage four ? | ? Stage four ?+ ---+ ---+ -------+| ?<15 (or dialysis) ? ?| ?Stage five ? | ? Stage five ?+ ---+ ---+ -------+ *Each stage assumes the associated GFR level has been in effect for at least three months. ?Stages 1 to 5, with or without kidney disease, indicate chronic kidney disease. Notes: Determination of stages one and two (with eGFR >59mL/min/1.73 m2) requires estimation of kidney damage for at least three months as defined by structural or functional abnormalities of the kidney, manifested by either:Pathological abnormalities or Markers of kidney damage (including abnormalities in the composition of the blood or urine or abnormalities in imaging tests). Lab Interpretation Abnormal (test code = 66541-8) [facility] WITH [id number] 13:09:28 Test Item Value Reference Range Interpretation Comments WBC (test code = See_Comment [Automated 6690-2) message] The sy stem which generated this result transmitted reference range : 4.20 - 10.70 10*3/?L. The reference range was not used to interpret this result as normal/abnormal . RBC (test code = See_Comment L [Automated 789-8) message] The sy stem which generated this result transmitted reference range : 4.26 - 5.52 10*6/?L. The reference range was not used to interpret this result as normal/abnormal . HGB (test code = 10.5 g/dL 12.2-16.4 L 718-7) HCT (test code = 31.8 % 38.4-49.3 L 4544-3) MCV (test code = 89.1 fL 81.7-95.6 787-2) MCH (test code = 29.4 pg 26.1-32.7 785-6) MCHC (test code = 33.0 g/dL 31.2-35.0 786-4) RDW-SD (test code = 45.3 fL 38.5-51.6 00784-8) RDW-CV (test code = 13.9 % 12.1-15.4 788-0) PLT (test code = See_Comment H [Automated 777-3) message] The sy stem which generated this result transmitted reference range : 150 - 328 10*3/ ?L. The reference r meredith was not used to interpret this result as normal/abnormal . MPV (test code = 9.0 fL 9.8-13.0 L 35921-1) NRBC/100 WBC (test See_Comment [Automat ed code = 0547945537) message] The system which generated this result transmitted reference range : 0.0 - 10.0 /100 WBCs. The refer ence range was not u sed to interpret th is result as normal/abnormal . NRBC x10^3 (test code <0.01 See_Comment [Auto mated = 0689222002) message] The s ystem which generated this result transmitted reference range : 10*3/?L. The reference range was not used to interpret this result as normal/abnormal . GRAN MAT (NEUT) % 69.7 % (test code = 770-8) IMM GRAN % (test code 0.40 % = 1465522348) LYMPH % (test code = 16.9 % 736-9) MONO % (test code = 11.9 % 5905-5) EOS % (test code = 0.7 % 713-8) BASO % (test code = 0.4 % 706-2) GRAN MAT x10^3(ANC) 3.88 10*3/uL 1.99-6.95 (test code = 5221899913) IMM GRAN x10^3 (test <0.03 0.00-0.06 code = 4073778847) LYMPH x10^3 (test code 0.94 10*3/uL 1.09-3.23 L = 731-0) MONO x10^3 (test code 0.66 10*3/uL 0.36-1.02 = 742-7) EOS x10^3 (test code = 0.04 10*3/uL 0.06-0.53 L 711-2) BASO x10^3 (test code <0.03 0.01-0.09 = 704-7) Lab Interpretation Abnormal (test code = 82418-7) [facility] WITH [id number] 05:55:28 Test Item Value Reference Range Interpretation Comments WBC (test code = See_Comment [Automated 6690-2) message] The sy stem which generated this result transmitted reference range : 4.20 - 10.70 10*3/?L. The reference range was not used to interpret this result as normal/abnormal . RBC (test code = See_Comment L [Automated 789-8) message] The sy stem which generated this result transmitted reference range : 4.26 - 5.52 10*6/?L. The reference range was not used to interpret this result as normal/abnormal . HGB (test code = 9.8 g/dL 12.2-16.4 L 718-7) HCT (test code = 30.0 % 38.4-49.3 L 4544-3) MCV (test code = 89.8 fL 81.7-95.6 787-2) MCH (test code = 29.3 pg 26.1-32.7 785-6) MCHC (test code = 32.7 g/dL 31.2-35.0 786-4) RDW-SD (test code = 45.4 fL 38.5-51.6 97249-7) RDW-CV (test code = 13.8 % 12.1-15.4 788-0) PLT (test code = See_Comment [Automated 777-3) message] The sy stem which generated this result transmitted reference range : 150 - 328 10*3/ ?L. The reference r meredith was not used to interpret this result as normal/abnormal . MPV (test code = 9.2 fL 9.8-13.0 L 45447-4) NRBC/100 WBC (test See_Comment [Automat ed code = 1082839357) message] The system which generated this result transmitted reference range : 0.0 - 10.0 /100 WBCs. The refer ence range was not u sed to interpret th is result as normal/abnormal . NRBC x10^3 (test code <0.01 See_Comment [Auto mated = 3161827637) message] The s ystem which generated this result transmitted reference range : 10*3/?L. The reference range was not used to interpret this result as normal/abnormal . GRAN MAT (NEUT) % 60.6 % (test code = 770-8) IMM GRAN % (test code 0.20 % = 7196256604) LYMPH % (test code = 25.5 % 736-9) MONO % (test code = 10.5 % 5905-5) EOS % (test code = 2.8 % 713-8) BASO % (test code = 0.4 % 706-2) GRAN MAT x10^3(ANC) 3.23 10*3/uL 1.99-6.95 (test code = 0121334742) IMM GRAN x10^3 (test <0.03 0.00-0.06 code = 8404311017) LYMPH x10^3 (test code 1.36 10*3/uL 1.09-3.23 = 731-0) MONO x10^3 (test code 0.56 10*3/uL 0.36-1.02 = 742-7) EOS x10^3 (test code = 0.15 10*3/uL 0.06-0.53 711-2) BASO x10^3 (test code <0.03 0.01-0.09 = 704-7) Lab Interpretation Abnormal (test code = 02098-3) [facility] 05:48:47 Test Item Value Reference Range Interpretation Comments LIPASE (test code = 9012028810) 116 U/L 0-220 Lab Interpretation (test code = Normal 06866-3) [facility] Center[facility] MET[facility]OLIC PANEL ([id number])2021-09-09 05:48:46 Test Item Value Reference Range Interpretation Comments NA (test code = 137 mmol/L 135-145 4947275656) K (test code = 4.0 mmol/L 3.5-5.0 4535607944) CL (test code = 108 mmol/L 98-108 1018862760) CO2 TOTAL (test code = 22 mmol/L 23-31 L 6770829486) AGAP (test code = 2-16 7272920741) BUN (test code = 23 mg/dL 7-23 1551691464) GLUCOSE (test code = 89 mg/dL 70-110 3633816541) CREATININE (test code = 1.28 mg/dL 0.60-1.25 H 6270395333) TOTAL BILI (test code = 0.4 mg/dL 0.1-1.1 0619450160) CALCIUM (test code = 8.9 mg/dL 8.6-10.6 3627100878) T PROTEIN (test code = 6.0 g/dL 6.3-8.2 L 8872037823) ALBUMIN (test code = 3.5 g/dL 3.5-5.0 7929956828) ALK PHOS (test code = 67 U/L 34-122 7312106807) ALTv (test code = 18 U/L 5-50 1742-6) AST(SGOT) (test code = 22 U/L 13-40 1137822359) eGFR (test code = mL/min/1.73m2 0473049965) GILBERTO (test code = GILBERTO) Association of Glomerular Filtration Rate (GFR) and Staging of Kidney Disease* + --+ --+ ------+| GFR (mL/min/1.73 m2) ?| With Kidney Damage ?| ?Without Kidney Damage+ --------+ --------+ +| ?>90 ?| ?Stage one ?| ? Normal ?+ ---+ ---+ -------+| ?60-89 ?| ?Stage two ?| ? Decreased GFR ? + --+ --+ ------+| ?30-59 ?| ?Stage three ?| ? Stage three ? + --+ --+ ------+| ?15-29 ?| ?Stage four ? | ? Stage four ?+ ---+ ---+ -------+| ?<15 (or dialysis) ? ?| ?Stage five ? | ? Stage five ?+ ---+ ---+ -------+ *Each stage assumes the associated GFR level has been in effect for at least three months. ?Stages 1 to 5, with or without kidney disease, indicate chronic kidney disease. Notes: Determination of stages one and two (with eGFR >59mL/min/1.73 m2) requires estimation of kidney damage for at least three months as defined by structural or functional abnormalities of the kidney, manifested by either:Pathological abnormalities or Markers of kidney damage (including abnormalities in the composition of the blood or urine or abnormalities in imaging tests). Lab Interpretation Abnormal (test code = 60335-4) [facility]. METABOLIC PANEL ([id number])2021-09-08 02:29:45 Test Item Value Reference Range Interpretation Comments NA (test code = 138 mmol/L 135-145 5666345086) K (test code = 4.3 mmol/L 3.5-5.0 8239360979) CL (test code = 106 mmol/L 98-108 7982452551) CO2 TOTAL (test code = 27 mmol/L 23-31 9364038489) AGAP (test code = 2-16 5153236965) BUN (test code = 22 mg/dL 7-23 2316293941) GLUCOSE (test code = 90 mg/dL 70-110 2013877503) CREATININE (test code = 1.36 mg/dL 0.60-1.25 H 2892353479) TOTAL BILI (test code = 0.4 mg/dL 0.1-1.9 4613343084) CALCIUM (test code = 9.2 mg/dL 8.6-10.6 6284113657) T PROTEIN (test code = 6.5 g/dL 6.3-8.2 5831806037) ALBUMIN (test code = 3.8 g/dL 3.5-5.0 0317524889) ALK PHOS (test code = 73 U/L 34-122 1223836189) ALTv (test code = 19 U/L 5-50 2-6) AST(SGOT) (test code = 24 U/L 13-40 3333107032) eGFR (test code = mL/min/1.73m2 3547548324) GILBERTO (test code = GILBERTO) Association of Glomerular Filtration Rate (GFR) and Staging of Kidney Disease* + --+ --+ ------+| GFR (mL/min/1.73 m2) ?| With Kidney Damage ?| ?Without Kidney Damage+ --------+ --------+ +| ?>90 ?| ?Stage one ?| ? Normal ?+ ---+ ---+ -------+| ?60-89 ?| ?Stage two ?| ? Decreased GFR ? + --+ --+ ------+| ?30-59 ?| ?Stage three ?| ? Stage three ? + --+ --+ ------+| ?15-29 ?| ?Stage four ? | ? Stage four ?+ ---+ ---+ -------+| ?<15 (or dialysis) ? ?| ?Stage five ? | ? Stage five ?+ ---+ ---+ -------+ *Each stage assumes the associated GFR level has been in effect for at least three months. ?Stages 1 to 5, with or without kidney disease, indicate chronic kidney disease. Notes: Determination of stages one and two (with eGFR >59mL/min/1.73 m2) requires estimation of kidney damage for at least three months as defined by structural or functional abnormalities of the kidney, manifested by either:Pathological abnormalities or Markers of kidney damage (including abnormalities in the composition of the blood or urine or abnormalities in imaging tests). Lab Interpretation Abnormal (test code = 68267-4) [facility] 02:29:45 Test Item Value Reference Range Interpretation Comments LIPASE (test code = 0529318789) 75 U/L 0-220 Lab Interpretation (test code = Normal 03214-1) [facility] Center[facility] WITH [id number] 02:15:21 Test Item Value Reference Range Interpretation Comments WBC (test code = See_Comment [Automated 6690-2) message] The sy stem which generated this result transmitted reference range : 4.20 - 10.70 10*3/?L. The reference range was not used to interpret this result as normal/abnormal . RBC (test code = See_Comment L [Automated 789-8) message] The sy stem which generated this result transmitted reference range : 4.26 - 5.52 10*6/?L. The reference range was not used to interpret this result as normal/abnormal . HGB (test code = 10.7 g/dL 12.2-16.4 L 718-7) HCT (test code = 33.4 % 38.4-49.3 L 4544-3) MCV (test code = 91.0 fL 81.7-95.6 787-2) MCH (test code = 29.2 pg 26.1-32.7 785-6) MCHC (test code = 32.0 g/dL 31.2-35.0 786-4) RDW-SD (test code = 45.9 fL 38.5-51.6 22757-0) RDW-CV (test code = 13.6 % 12.1-15.4 788-0) PLT (test code = See_Comment [Automated 777-3) message] The sy stem which generated this result transmitted reference range : 150 - 328 10*3/ ?L. The reference r meredith was not used to interpret this result as normal/abnormal . MPV (test code = 9.4 fL 9.8-13.0 L 29466-9) NRBC/100 WBC (test See_Comment [Automat ed code = 2661787840) message] The system which generated this result transmitted reference range : 0.0 - 10.0 /100 WBCs. The refer ence range was not u sed to interpret th is result as normal/abnormal . NRBC x10^3 (test code <0.01 See_Comment [Auto mated = 7938357590) message] The s ystem which generated this result transmitted reference range : 10*3/?L. The reference range was not used to interpret this result as normal/abnormal . GRAN MAT (NEUT) % 66.0 % (test code = 770-8) IMM GRAN % (test code 0.50 % = 5073931772) LYMPH % (test code = 20.0 % 736-9) MONO % (test code = 9.8 % 5905-5) EOS % (test code = 3.5 % 713-8) BASO % (test code = 0.2 % 706-2) GRAN MAT x10^3(ANC) 3.77 10*3/uL 1.99-6.95 (test code = 4416600200) IMM GRAN x10^3 (test 0.03 10*3/uL 0.00-0.06 code = 3346802151) LYMPH x10^3 (test code 1.14 10*3/uL 1.09-3.23 = 731-0) MONO x10^3 (test code 0.56 10*3/uL 0.36-1.02 = 742-7) EOS x10^3 (test code = 0.20 10*3/uL 0.06-0.53 711-2) BASO x10^3 (test code <0.03 0.01-0.09 = 704-7) Lab Interpretation Abnormal (test code = 46305-7) [facility] CenterL[facility] Whole [id number] 02:10:44 Test Item Value Reference Range Interpretation Comments LACTIC ACID (test code = 1.35 mmol/L 0.50-2.20 6307946387) Lab Interpretation (test code = Normal 43977-0) [facility] [id number] 15:31:19 Test Item Value Reference Range Interpretation Comments Case Report (test code Surgical Pathology ? ? = [id number]) ?Case: [id number] ? Authorizing Provider: ?iBa Pedro MD ?Collected: ? 09/03/2021800 ?Ordering Location: ? ? [facility] OR ? Received: ?09/03/2021841 ? Department ? Pathologist: ? Shaneka Douglas MD ? Specimen: ? ?ILEUM, Ileostomy ( staple ?end proximal ) ? Final Diagnosis (test v4fsuQDdIDNiy2noHFDfvC code = 2193412105) FuZzEwMzNcZnRuYmpcdWMx IHtccnRmMVxlcGljOTYwMV enpdKlDWJdaCNtK8Iwycso RRbpZH9bOT2sdTasrXUzzF BqBVDaMvKnj7oya570qIFq u7zmGGUCioymfXg1xGwdM8 7dv5S6MyllO22ajHTyZZT3 KCZdTUSkcFBzIITwSRK5AM ZnxOByI4enJSMySG6cjdts FVkaEZqtCMDkpKY7BMGihE UiT9QzQUHmNCskBGGnkgn8 NqPbOi2vnVIxzKjkQHteXE JkXHBsYWluXGZzMjBccGFy IEEuIElMRVVNLCBJTEVPU1 BLIYt7PLTivrPmACSnUZ3j QkVOSUdOIElMRUFMIFRJU1 DHRQVPLELIUNQIB1TQHV3U D75AIKvzMVZTC0mMEeYsAU 3KMXZLQhqCJ5HCSFYIINVP RUxTLCBccGFyICAgICAgIC YCX67HTMFJWJ8UBVxJLUoh RQqHS7IBK18XJEJbzpbdNR JcZnMyMiBTcmkgQmhhcmF0 hMvlT3Y8tUFeEITUScXEWF DofcinIHK6u9ztdFZpQWIw gSMbVfWjQGOwMNHqi8nuTW VmbGFuZzEwMzNcZnRuYmpc yEOiQEJzSdWbd4flm751bL Bce2rvXEIhIcG7dLKdKXJx dMtnrdn2wKryMpFaMBArn8 lzcyBcZmNoYXJzZXQwIEFy yUWzO781NYQgABtiw2rxz2 MwHHIxkICwd3Q4BGEASWaq PkSsG598v8hmk1iqwmFqzQ R2QDSkDYO1OTuwigMowtR0 SUhpoZPsDoI8BJxvarFaZO dmrbJfdrLbAgh6CVQaX901 OMQ4pXgrw3nxBWL9XLUoES HjSlvkUk8ioXFhW216XOLp TJDSOTZrxVq6BSCzevAixl MtuQKCw713G297h1azXZKa pdPzmVoIdzgei6epU562DK BhcGVydzEyMjQwXHBhcGVy uWF8VSVcAN1fxqxpEYtiFT koHVQrzpX1OOKjaDHtH9At FZXjLV4mimfnXBR1BJeiPC PzSWF9QkFkNCMms3Idhzb3 GrDnzt7wqv03BSC5c4VxzM dkJQO5CRZ5QiIzGi0wmOVn PZClZD9hXrHcxXPkCTVtaw 72oFzuOZhmjdGqnM8lOcDw AHOfaWTxCCAtXW5tsGTwNP RylY1qwhilCHGlMtIqpigu BJLatKcqsuDeEl0prUweZE W9TNugZ0lzkN6iPqH4UZzj H2vwlY5iXEc7UIaqcMM1WN DpqX8sUI8adielt8cfVUrd AHodDAWsyfS3kkI4QNDvxK RzE8EsvQ7rNZQkWC4ytgav k5fjMVQ5ACizKCBzEKC3Ay KtDHKxi7Rhqrw2XjJdc6Ty zTOcAAfoD13jc318VNXfqk WaY7cmjZEdujgxnAXtpgws LWlyvqB1KXJyQDCoKOfbPJ YxXGZzMjBcbGFuZzEwMzNc aGljaFxmMVxkYmNoXGYxXG kcE7whAnNvF5GiJMHsNdDf dUOuPYnvtVM8UOJtDJHdh1 1hsZj6VMAubtwoa3RoHIKu dWNqkHRzxG8gwfKur0hvSO AjGREfYHWtQ0LeAUO1uOQu FJZvmLEbpIL5BJ8ptfLxYW 1hZGUgYnkgcmVzaWRlbnRz WFFtPCxsi8owDQ5vBEOcmW pnzG9neEJ2HSZjm8rmhLCp fBBhh9nxc6MdhiZdLEnnTS TxJBogHWBdILKjGC0kVFXb iIIdbjNgs7R3VmnlmCJyze lbNdggcjF9XQegozpzDTVj IEsyG4znRkWoMTHfbZedFw laa0RiNEFsBZEmQmscrMOz fX0= Clinical Information 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] 3119750654) Gross Description (test r7tdvVDlEVXqzZVSPEUbVo code = 0759754254) ozxzHeKMDupPQuH4Ipfgwu WGkkYB7yTQ8phUaazRJvuI AmDQ2MZYLhIjYkIODupIOt woSuIwWcFKYdyDVskIT0IS IrVZ2ecjcbMBnuSSgcINIk iiZ0KQZqqWKmI4YhPGDoVE 4opbteFEC4ELzzlS0svbRU QyhrGj5ieHBhkIabKaOuSk NoYXJzZXQwXGZuaWwgQXJp CNn8jD0YErlgHHM7NILGBc sqRWCqCS3Jq4hvZEBdqFNr WGL1NLkmuLDuAWGcJGRxYS l9UXXsINhtwORrQG4uwUtp QacwvHluc1QdpNOlCAymSB KtNBLyUXdjXRMwXQ3KNiFq RAyLJOYtFYIlMpT1DOn0HD LGTiOrLuMmOQz6Fsl5ZwSu FQc1QJc3BKnALyJrSUO5Ox RdHcK0PYG1JUPzWOoaiXIe IFxcZiBBcmlhbCBcXGZzID RlKUwhNwjjSAxuQ53flSeo eE1uYlPhXVJGKbKKNPLXXC 1yoJQjYC2DVVSqSVzkMUGx uZQQGGU9LX6lKZTGQhrzwA PgZFAnsJosVLkxbD3uKO9Y VSv8sqVdSURxSbLoW7PwR1 htHH3aYYRqzzXhLRFajCXs ZCBmcmVzaCBhbmQgbGFiZW feBTJ0xRHxVATsERCcIAHw UD40W4ZaltPgKPhuDPudca KpNkOxDDMkvQT1bBnueCkx l5A8a425QQXbsASghRZnKA 6zPBDwf7zmmBIgQiQrmfJi B65gn8aqyJVqc6WlYNN0TR 7bkLrrxiLwNClqTZ32SA6p VGJhYQtnQPGkl8PxZVg6Vr VrR27vxA8psEWlH0VyYKZ4 IDQuMiBjbSBpbiBkaWFtZX Lfckczo7d3qCInHNB7c82i XPmnLhgsjYIiRlAkD72ePU wxyiOqYWykiSncYOC1qCwp AGSbmILbKmD9SC6cZhMwj3 1ky7tnoeMmpuDhSYNboKMg pTLnTNPyn3DbdTlevwEyHW GiiM7rBGQkXMJzhNLliI2q biBpcyBvcGVuIHRvIHJldm IotLF3XE8saAtvthRxbh9p y4y7LYDlurRaBQBkVAYsZR LlmWWmh1PfMDXFULGoTTXm tsSvgGf7QVOnXJB5rL1tur QyavJua0AblTs8dAJzXOoh GNJqRECfvd76X4quLVWyHY BhciANClxwYXIgDQpBMTog xGJiiXfoISmroNBpP6euJW RkFIUlHJRqpwHyxXr1GYWk bTBzKR4HYYT2RQE8g23qWK GlJNXqYPVmlaXlhOp1CZnq ZQPqLQnWHcnnTd43SDrmd0 TbpMcpgbNpwyHsBR97RMVw jtTlcJCfMA3WRRKdkyBJAn J5cUuqFJs5LSN6IAqzIDJ3 mP4sf8cxc0QqJcHGo9Ieb7 UposGsb9E9ELYruLbzsW2x PX3vzttsYNQdXIW1x7BdOC VRXRmhbTljzD8dGWKyR23w i5WCx3JlJPMvAHfgn4gpeH zmj1NvpVYlVNfpIJAwiXFp LBrkdB9bFwVdi5bwaXy5AZ rmomT6QMTfkf2SOmzuoE1c KfJry8sucZk8BVZLZwyewo R0w7dkuUcgh2UzxARyXS9Z Cn0= Disclaimer (test code = a5stmCKqPGKlz3jmXOIgfM [id number]) FuZzEwMzNcZnRuYmpcdWMx EMiqfhCyCAnwp5KcW0OrOt AwMFxhbnNpXGRlZmxhbmcx JGNfETR7chJiZUNpBMprNZ ZnQIcfMq7mjCZddDkrAlOw COFij5hzquEYCXtxAtGsH9 32LITwOJhqw3egz9QkBRJf sRBtx8J3BDVHeyaqbTz8rS gyP42rl0D3ZrpgQ2fyAOWy SZWxC2XwRM1dOQGvXjy7LP A0PRC4VUXiBPXtK9UiGN5f ELSwhAYvZUy5x0oeeZwaUF ZaCMJ7l6xbPXvdgmSsVI8r lu4doWr4w8ulgbVqPHXuGF QoyBFBUXKeR8IlbDuwLb5o pKi5lElaHqxfCVJ5Rcv1ET 7puu35jqj5hBrmCMSjcxjj WsS4ILaaACUksjqzXXf2XG kzSIJqtUF7FHUomWAqI9Kc SRJzLY5cjqd6TGZ0YNycAF KtPbC9LLPnfDNqMUGjtXml JEzzk701EGK4UmEdTB9dU8 Vfr3V2eP7xuLQaGBZxmUMo AnGqRYReaw6aoRAgXDqbg5 CqNPW8vmP0yCHykHMmMIZq UM22Vnmdw4GdZtxqu1FdY5 5daAP7VKupj5gmBH6iWwI1 jnLwXUxhm9ogrK8aCyO5DC gvQD5uKA1vCQCwrW7ktbrt XHBnYnJkcmhlYWRccGdicm LtVc7qdSrlNOV3HUisR1zd sO9kOvH4UQsqP1yzsE0vWG u3MEcagXE5KGQdwT9gRV7j asrpn3cgJTnjCJceLXRypd O2zfD5CVFmrSZaT7BuhT3a TGWtTJ2pkecuq0paJMR8ML fqVCSsEAN4LoHrXRNtf1Mp bpn8OdDef8JybAWtPNthM4 2dj377OYBltwZyI6yesLHx udddrEWmlxfjERzkgcK9UH QztsVyt9BxRCIrOLY9AHfu ZLmagGSbWNCohTxow9ynH3 RscGFyXHBsYWluXGYxXGZz MjBcbGFuZzEwMzNcaGljaF wxNBjpCkQrPJVeSJqpV5if QjRuC0RcGCHvGpZhvNOdO5 ggVGhpcyByZXBvcnQgbWF5 MRbaM4r6CDFkjeQrePb4sh JlUwIpDUOrPMQ1ZHrvoZNu CNYwz4CmvurniINvUp0wsL DqPMMkcS6bRVAfMXXcOKzy QZ5hfSo7VKJNkRIrfFUcLd RQKKWrXT82iwUsSSOSbmmj l7J1CBgtFPIcc1GtnZGlN5 edy9RiQYGug70pWM4zp9D6 c4qnVGP5OX6mr9RdXGBupN McjHPsYUVul0Asumwwg1Rl EHLkfnAwf0VmSWQtuyNisQ HeAPOfkcPbov8viiZhSJAy QIErJ7GkgitxmWscyqZpRH Ekqq0jdlDkUIF3FXNQDMKf GVFhb2CalU1pvCQZETU8cT Cpux2yyrCOwLAnNXNvll24 QRAgPG3iZ5nnDKMtSLUdhr GgfIRcp5LzBPHuhAX5rGWf PZ6FYgEQj28gWVIxWNULkj QoEJVpcNullIY1dmN6yK7u IChGREEpLlx+IFRoZSBGRE OpBC5mmrFgr1FxfmLzzNmu RKJbqRLwh3KvhIMdz1CzeG ygx0PkhTDxbYWeFJ9qVBLv clxwYXIgVVRNQiBMYWJvcm Z3s0NlRQUnOQLsPTA0bUnb sol7EDZhvC8jWLHvY8bdcr jxZXicDSZln3PpbZ4ppRPK wWNpw0UozEVvxVNIkJWcZT 0msfJqPWfHDKzCSTL7fqBp XXGpg4MpJEcaL7woV14xmD rssCy6yON6GLW0pQ6dGbc+ IFxwYXJccGFyIEFwcHJvcH CoYKJvrYtjrcMuP9MxlfGr vK6unGLfeaHiWC5nJD2sW5 P7aZTnYCJqcwXpt9nmYAln dmUgYmVlbiByZXZpZXdlZC Kto0CiINtpVTN2LKrgkpAr bmNsdWRpbmcgSCZFLCBTcG KisWAuXND5LIqjmiZetsPq HZ2tdB6ugTmhzL9xeKNkcO V3hnymHAOmAMWdkAtlIKGc SL0tzAByVLRivuPTvGlrpX QihA9oG9BrTXJxKWAvyy9b ILGlbJ0tURdkv1MbsjjwFL FlQMRtGBKognVaqo7uCHMl wFWLIV9JVMqhxJEoj7Tvhv OgA4cJHKT6MYGmUpZmIokm KDHdrYSllFMtCUBfol66WU CfpW1seLwvIEUmyD4jwI1d nXwulW7nMnGiEiIzOKemGG 6ySXOtM0ubsZMqUYUzWNPz J0ipPpBcoM2juRrhYZdqFh IvCbNoXAxeOWP1zA== Embedded Images (test code = 4917641799) [facility] [id number] 09:01:06 Test Item Value Reference Range Interpretation Comments Blood Culture-Aerobic No organisms No growth Previo us (test code = 31681-6) isolated prelim inary verified result was Culture In Progress on 08/31/2021 at 060 1 CSTPrevious preliminary verified result was No growth a t 24 hours on 09/01/2021 at 030 1 CSTPrevious preliminary verified result was No growth a t 48 hours on 09/02/2021 at 03 01 CSTPrevious preliminary verified result was No growth a t 72 hours on 09/03/2021 at 03 01 ENGRAVER LETTER Blood No organisms No growth Previous Culture-Anaerobic isolated preliminar y (test code = 10756-9) verifi ed result was Culture In Progress on 08/31/2021 at 060 1 CSTPrevious preliminary verified result was No growth a t 24 hours on 09/01/2021 at 030 1 CSTPrevious preliminary verified result was No growth a t 48 hours on 09/02/2021 at 03 01 CSTPrevious preliminary verified result was No growth a t 72 hours on 09/03/2021 at 03 01 ENGRAVER LETTER Lab Interpretation Normal (test code = 37310-7) [facility] (NA, K, CL, CO2, GLUCOSE, BUN, CREATININE, CA)2021-09-04 13:22:54 Test Item Value Reference Range Interpretation Comments NA (test code = 132 mmol/L 135-145 L 6079969364) K (test code = 4.3 mmol/L 3.5-5.0 1124857358) CL (test code = 104 mmol/L 98-108 1486112219) CO2 TOTAL (test code = 23 mmol/L 23-31 9304036588) AGAP (test code = 2-16 5269242102) BUN (test code = 15 mg/dL 7-23 1578367771) GLUCOSE (test code = 96 mg/dL 70-110 0214475598) CREATININE (test code = 1.42 mg/dL 0.60-1.25 H 3558075050) CALCIUM (test code = 8.7 mg/dL 8.6-10.6 8882269968) eGFR (test code = mL/min/1.73m2 2816616243) GILBERTO (test code = GILBERTO) Association of Glomerular Filtration Rate (GFR) and Staging of Kidney Disease* + --+ --+ ------+| GFR (mL/min/1.73 m2) ?| With Kidney Damage ?| ?Without Kidney Damage+ --------+ --------+ +| ?>90 ?| ?Stage one ?| ? Normal ?+ ---+ ---+ -------+| ?60-89 ?| ?Stage two ?| ? Decreased GFR ? + --+ --+ ------+| ?30-59 ?| ?Stage three ?| ? Stage three ? + --+ --+ ------+| ?15-29 ?| ?Stage four ? | ? Stage four ?+ ---+ ---+ -------+| ?<15 (or dialysis) ? ?| ?Stage five ? | ? Stage five ?+ ---+ ---+ -------+ *Each stage assumes the associated GFR level has been in effect for at least three months. ?Stages 1 to 5, with or without kidney disease, indicate chronic kidney disease. Notes: Determination of stages one and two (with eGFR >59mL/min/1.73 m2) requires estimation of kidney damage for at least three months as defined by structural or functional abnormalities of the kidney, manifested by either:Pathological abnormalities or Markers of kidney damage (including abnormalities in the composition of the blood or urine or abnormalities in imaging tests). Lab Interpretation Abnormal (test code = 25112-1) [facility] (NA, K, CL, CO2, GLUCOSE, BUN, CREATININE, CA)2021-09-04 13:22:54 Test Item Value Reference Range Interpretation Comments NA (test code = 132 mmol/L 135-145 L 0571675214) K (test code = 4.3 mmol/L 3.5-5.0 0255894694) CL (test code = 104 mmol/L 98-108 2143544055) CO2 TOTAL (test code = 23 mmol/L 23-31 9098472069) AGAP (test code = 2-16 4213629985) BUN (test code = 15 mg/dL 7-23 2597141873) GLUCOSE (test code = 96 mg/dL 70-110 7260890913) CREATININE (test code = 1.42 mg/dL 0.60-1.25 H 4644940265) CALCIUM (test code = 8.7 mg/dL 8.6-10.6 3087740814) eGFR (test code = mL/min/1.73m2 0054884799) GILBERTO (test code = GILBERTO) Association of Glomerular Filtration Rate (GFR) and Staging of Kidney Disease* + --+ --+ ------+| GFR (mL/min/1.73 m2) ?| With Kidney Damage ?| ?Without Kidney Damage+ --------+ --------+ +| ?>90 ?| ?Stage one ?| ? Normal ?+ ---+ ---+ -------+| ?60-89 ?| ?Stage two ?| ? Decreased GFR ? + --+ --+ ------+| ?30-59 ?| ?Stage three ?| ? Stage three ? + --+ --+ ------+| ?15-29 ?| ?Stage four ? | ? Stage four ?+ ---+ ---+ -------+| ?<15 (or dialysis) ? ?| ?Stage five ? | ? Stage five ?+ ---+ ---+ -------+ *Each stage assumes the associated GFR level has been in effect for at least three months. ?Stages 1 to 5, with or without kidney disease, indicate chronic kidney disease. Notes: Determination of stages one and two (with eGFR >59mL/min/1.73 m2) requires estimation of kidney damage for at least three months as defined by structural or functional abnormalities of the kidney, manifested by either:Pathological abnormalities or Markers of kidney damage (including abnormalities in the composition of the blood or urine or abnormalities in imaging tests). Lab Interpretation Abnormal (test code = 31696-6) [facility] CULTURE [id number] 17:16:36 Test Item Value Reference Range Interpretation Comments Blood Culture Coagulase negative Addition al Workup (test Staphylococcus work-up perfo rmed code = 600-7) only per reque st. Culture plate(s ) will be saved until this date : 09/08/21 Gram stain Isolated from aerobic (test code = bottle Gram positive 664-3) cocci in clusters [facility] CULTURE [id number] 17:16:36 Test Item Value Reference Range Interpretation Comments Blood Culture Coagulase negative Addition al Workup (test Staphylococcus work-up perfo rmed code = 600-7) only per reque st. Culture plate(s ) will be saved until this date : - 09/08/21 Gram stain Isolated from aerobic (test code = bottle Gram positive 664-3) cocci in clusters [facility] Culture - Peripheral Vein # 17:16:26 Test Item Value Reference Range Interpretation Comments Blood Culture-Aerobic Culture positive. No growth AA P revious (test code = 57510-2) See Blood Culture p reliminary Workup for verified result additional was Culture In information. Progress on 08/31/2021 at 060 1 ENGRAVER LETTER Blood No organisms No growth Previous Culture-Anaerobic isolated preliminar y (test code = 29479-1) verifi ed result was Culture In Progress on 09/01/2021 at 012 7 ENGRAVER LETTER Lab Interpretation Abnormal (test code = 68459-2) [facility] Culture - Peripheral Vein # 17:16:26 Test Item Value Reference Range Interpretation Comments Blood Culture-Aerobic Culture positive. No growth AA P revious (test code = 25747-6) See Blood Culture p reliminary Workup for verified result additional was Culture In information. Progress on 08/31/2021 at 060 1 ENGRAVER LETTER Blood No organisms No growth Previous Culture-Anaerobic isolated preliminar y (test code = 74822-1) verifi ed result was Culture In Progress on 09/01/2021 at 012 7 ENGRAVER LETTER Lab Interpretation Abnormal (test code = 84119-8) [facility] (NA, K, CL, CO2, GLUCOSE, BUN, CREATININE, CA)2021-09-03 12:16:04 Test Item Value Reference Range Interpretation Comments NA (test code = 130 mmol/L 135-145 L 3262901111) K (test code = 4.1 mmol/L 3.5-5.0 9916777736) CL (test code = 103 mmol/L 98-108 4495953282) CO2 TOTAL (test code = 21 mmol/L 23-31 L 0300681834) AGAP (test code = 2-16 3418001678) BUN (test code = 14 mg/dL 7-23 7744316311) GLUCOSE (test code = 90 mg/dL 70-110 8481329802) CREATININE (test code = 1.28 mg/dL 0.60-1.25 H 0918633947) CALCIUM (test code = 8.8 mg/dL 8.6-10.6 0719882992) eGFR (test code = mL/min/1.73m2 1468449816) GILBERTO (test code = GILBERTO) Association of Glomerular Filtration Rate (GFR) and Staging of Kidney Disease* + --+ --+ ------+| GFR (mL/min/1.73 m2) ?| With Kidney Damage ?| ?Without Kidney Damage+ --------+ --------+ +| ?>90 ?| ?Stage one ?| ? Normal ?+ ---+ ---+ -------+| ?60-89 ?| ?Stage two ?| ? Decreased GFR ? + --+ --+ ------+| ?30-59 ?| ?Stage three ?| ? Stage three ? + --+ --+ ------+| ?15-29 ?| ?Stage four ? | ? Stage four ?+ ---+ ---+ -------+| ?<15 (or dialysis) ? ?| ?Stage five ? | ? Stage five ?+ ---+ ---+ -------+ *Each stage assumes the associated GFR level has been in effect for at least three months. ?Stages 1 to 5, with or without kidney disease, indicate chronic kidney disease. Notes: Determination of stages one and two (with eGFR >59mL/min/1.73 m2) requires estimation of kidney damage for at least three months as defined by structural or functional abnormalities of the kidney, manifested by either:Pathological abnormalities or Markers of kidney damage (including abnormalities in the composition of the blood or urine or abnormalities in imaging tests). Lab Interpretation Abnormal (test code = 64000-9) [facility] (NA, K, CL, CO2, GLUCOSE, BUN, CREATININE, CA)2021-09-03 12:16:04 Test Item Value Reference Range Interpretation Comments NA (test code = 130 mmol/L 135-145 L 0035619602) K (test code = 4.1 mmol/L 3.5-5.0 1703012846) CL (test code = 103 mmol/L 98-108 4749889619) CO2 TOTAL (test code = 21 mmol/L 23-31 L 5626541350) AGAP (test code = 2-16 6864168765) BUN (test code = 14 mg/dL 7-23 4409796146) GLUCOSE (test code = 90 mg/dL 70-110 5696736341) CREATININE (test code = 1.28 mg/dL 0.60-1.25 H 4334032347) CALCIUM (test code = 8.8 mg/dL 8.6-10.6 8862576418) eGFR (test code = mL/min/1.73m2 8975956332) GILBERTO (test code = GILBERTO) Association of Glomerular Filtration Rate (GFR) and Staging of Kidney Disease* + --+ --+ ------+| GFR (mL/min/1.73 m2) ?| With Kidney Damage ?| ?Without Kidney Damage+ --------+ --------+ +| ?>90 ?| ?Stage one ?| ? Normal ?+ ---+ ---+ -------+| ?60-89 ?| ?Stage two ?| ? Decreased GFR ? + --+ --+ ------+| ?30-59 ?| ?Stage three ?| ? Stage three ? + --+ --+ ------+| ?15-29 ?| ?Stage four ? | ? Stage four ?+ ---+ ---+ -------+| ?<15 (or dialysis) ? ?| ?Stage five ? | ? Stage five ?+ ---+ ---+ -------+ *Each stage assumes the associated GFR level has been in effect for at least three months. ?Stages 1 to 5, with or without kidney disease, indicate chronic kidney disease. Notes: Determination of stages one and two (with eGFR >59mL/min/1.73 m2) requires estimation of kidney damage for at least three months as defined by structural or functional abnormalities of the kidney, manifested by either:Pathological abnormalities or Markers of kidney damage (including abnormalities in the composition of the blood or urine or abnormalities in imaging tests). Lab Interpretation Abnormal (test code = 42214-4) [facility] WITHOUT [id number] 11:53:39 Test Item Value Reference Range Interpretation Comments WBC (test code = 6690-2) See_Comment [A utomated message] The system [employer] generated this result transmit dain reference range : 4.20 - 10.70 10*3/?L. The reference range was not used to interpret this result as normal/abnormal . RBC (test code = 789-8) See_Comment L [Au tomated message] The system [employer] generated this result transmit dain reference range : 4.26 - 5.52 10* 6/?L. The reference r meredith was not used to interpret this result as normal/abnormal . HGB (test code = 718-7) 10.7 g/dL 12.2-16.4 L HCT (test code = 4544-3) 32.5 % 38.4-49.3 L MCH (test code = 785-6) 29.6 pg 26.1-32.7 MCV (test code = 787-2) 89.8 fL 81.7-95.6 MCHC (test code = 786-4) 32.9 g/dL 31.2-35.0 PLT (test code = 777-3) See_Comment [Au tomated message] The system [facility] generated this result transmit dain reference range : 150 - 328 10*3/?L. The reference range was not used to interpret this result as normal/abnormal . MPV (test code = 10.1 fL 9.8-13.0 79124-9) RDW-CV (test code = 13.5 % 12.1-15.4 788-0) RDW-SD (test code = 44.6 fL 38.5-51.6 22660-3) NRBC x10^3 (test code = <0.01 See_Comment [Au tomated message] 7927882199) The system [employer] generated this result transmit dain reference range : 10*3/?L. The reference range was not used to interpret this result as normal/abnormal . NRBC/100 WBC (test code See_Comment [Au tomated message] = 1611862357) The system [facility] generated this result transmit dain reference range : 0.0 - 10.0 /100 WBC s. The reference r meredith was not used to interpret this result as normal/abnormal . IPF % (test code = 8239230958) Lab Interpretation (test Abnormal code = 49457-2) [facility] WITHOUT [id number] 11:53:39 Test Item Value Reference Range Interpretation Comments WBC (test code = 6690-2) See_Comment [A utomated message] The system [employer] generated this result transmit dain reference range : 4.20 - 10.70 10*3/?L. The reference range was not used to interpret this result as normal/abnormal . RBC (test code = 789-8) See_Comment L [Au tomated message] The system [employer] generated this result transmit dain reference range : 4.26 - 5.52 10* 6/?L. The reference r meredith was not used to interpret this result as normal/abnormal . HGB (test code = 718-7) 10.7 g/dL 12.2-16.4 L HCT (test code = 4544-3) 32.5 % 38.4-49.3 L MCH (test code = 785-6) 29.6 pg 26.1-32.7 MCV (test code = 787-2) 89.8 fL 81.7-95.6 MCHC (test code = 786-4) 32.9 g/dL 31.2-35.0 PLT (test code = 777-3) See_Comment [Au tomated message] The system [employer] generated this result transmit dain reference range : 150 - 328 10*3/?L. The reference range was not used to interpret this result as normal/abnormal . MPV (test code = 10.1 fL 9.8-13.0 71054-0) RDW-CV (test code = 13.5 % 12.1-15.4 788-0) RDW-SD (test code = 44.6 fL 38.5-51.6 31858-0) NRBC x10^3 (test code = <0.01 See_Comment [Au tomated message] 3374267873) The system [employer] generated this result transmit dain reference range : 10*3/?L. The reference range was not used to interpret this result as normal/abnormal . NRBC/100 WBC (test code See_Comment [Au tomated message] = 8439897527) The system [facility] generated this result transmit dain reference range : 0.0 - 10.0 /100 WBC s. The reference r meredith was not used to interpret this result as normal/abnormal . IPF % (test code = 7826108966) Lab Interpretation (test Abnormal code = 43413-4) [facility] (NA, K, CL, CO2, GLUCOSE, BUN, CREATININE, CA)2021-09-02 12:06:01 Test Item Value Reference Range Interpretation Comments NA (test code = 132 mmol/L 135-145 L 1337322682) K (test code = 4.4 mmol/L 3.5-5.0 1471174527) CL (test code = 106 mmol/L 98-108 6586643617) CO2 TOTAL (test code = 22 mmol/L 23-31 L 2037070002) AGAP (test code = 2-16 4270202444) BUN (test code = 16 mg/dL 7-23 7816815510) GLUCOSE (test code = 83 mg/dL 70-110 8533559511) CREATININE (test code = 1.33 mg/dL 0.60-1.25 H 9350870693) CALCIUM (test code = 8.8 mg/dL 8.6-10.6 1442748600) eGFR (test code = mL/min/1.73m2 7764208430) GILBERTO (test code = GILBERTO) Association of Glomerular Filtration Rate (GFR) and Staging of Kidney Disease* + --+ --+ ------+| GFR (mL/min/1.73 m2) ?| With Kidney Damage ?| ?Without Kidney Damage+ --------+ --------+ +| ?>90 ?| ?Stage one ?| ? Normal ?+ ---+ ---+ -------+| ?60-89 ?| ?Stage two ?| ? Decreased GFR ? + --+ --+ ------+| ?30-59 ?| ?Stage three ?| ? Stage three ? + --+ --+ ------+| ?15-29 ?| ?Stage four ? | ? Stage four ?+ ---+ ---+ -------+| ?<15 (or dialysis) ? ?| ?Stage five ? | ? Stage five ?+ ---+ ---+ -------+ *Each stage assumes the associated GFR level has been in effect for at least three months. ?Stages 1 to 5, with or without kidney disease, indicate chronic kidney disease. Notes: Determination of stages one and two (with eGFR >59mL/min/1.73 m2) requires estimation of kidney damage for at least three months as defined by structural or functional abnormalities of the kidney, manifested by either:Pathological abnormalities or Markers of kidney damage (including abnormalities in the composition of the blood or urine or abnormalities in imaging tests). Lab Interpretation Abnormal (test code = 22190-4) [facility] METABOLIC PANEL (NA, K, CL, CO2, GLUCOSE, BUN, CREATININE, CA)2021-09-02 12:06:01 Test Item Value Reference Range Interpretation Comments NA (test code = 132 mmol/L 135-145 L 3333012319) K (test code = 4.4 mmol/L 3.5-5.0 0937531605) CL (test code = 106 mmol/L 98-108 6288086102) CO2 TOTAL (test code = 22 mmol/L 23-31 L 0221137872) AGAP (test code = 2-16 6712282648) BUN (test code = 16 mg/dL 7-23 2472052360) GLUCOSE (test code = 83 mg/dL 70-110 7599736560) CREATININE (test code = 1.33 mg/dL 0.60-1.25 H 5341071345) CALCIUM (test code = 8.8 mg/dL 8.6-10.6 8235451231) eGFR (test code = mL/min/1.73m2 4931584914) GILBERTO (test code = GILBERTO) Association of Glomerular Filtration Rate (GFR) and Staging of Kidney Disease* + --+ --+ ------+| GFR (mL/min/1.73 m2) ?| With Kidney Damage ?| ?Without Kidney Damage+ --------+ --------+ +| ?>90 ?| ?Stage one ?| ? Normal ?+ ---+ ---+ -------+| ?60-89 ?| ?Stage two ?| ? Decreased GFR ? + --+ --+ ------+| ?30-59 ?| ?Stage three ?| ? Stage three ? + --+ --+ ------+| ?15-29 ?| ?Stage four ? | ? Stage four ?+ ---+ ---+ -------+| ?<15 (or dialysis) ? ?| ?Stage five ? | ? Stage five ?+ ---+ ---+ -------+ *Each stage assumes the associated GFR level has been in effect for at least three months. ?Stages 1 to 5, with or without kidney disease, indicate chronic kidney disease. Notes: Determination of stages one and two (with eGFR >59mL/min/1.73 m2) requires estimation of kidney damage for at least three months as defined by structural or functional abnormalities of the kidney, manifested by either:Pathological abnormalities or Markers of kidney damage (including abnormalities in the composition of the blood or urine or abnormalities in imaging tests). Lab Interpretation Abnormal (test code = 59771-3) [facility] METABOLIC PANEL (NA, K, CL, CO2, GLUCOSE, BUN, CREATININE, CA)2021-09-01 21:55:22 Test Item Value Reference Range Interpretation Comments NA (test code = 130 mmol/L 135-145 L [id number]) K (test code = 4.2 mmol/L 3.5-5.0 3390755625) CL (test code = 103 mmol/L 98-108 4466281172) CO2 TOTAL (test code = 20 mmol/L 23-31 L 8950257105) AGAP (test code = 2-16 6380959706) BUN (test code = 20 mg/dL 7-23 6074773136) GLUCOSE (test code = 106 mg/dL 70-110 8430359059) CREATININE (test code = 1.51 mg/dL 0.60-1.25 H 6182723651) CALCIUM (test code = 8.5 mg/dL 8.6-10.6 L 7417260426) eGFR (test code = mL/min/1.73m2 1574872093) GILBERTO (test code = GILBERTO) Association of Glomerular Filtration Rate (GFR) and Staging of Kidney Disease* + --+ --+ ------+| GFR (mL/min/1.73 m2) ?| With Kidney Damage ?| ?Without Kidney Damage+ --------+ --------+ +| ?>90 ?| ?Stage one ?| ? Normal ?+ ---+ ---+ -------+| ?60-89 ?| ?Stage two ?| ? Decreased GFR ? + --+ --+ ------+| ?30-59 ?| ?Stage three ?| ? Stage three ? + --+ --+ ------+| ?15-29 ?| ?Stage four ? | ? Stage four ?+ ---+ ---+ -------+| ?<15 (or dialysis) ? ?| ?Stage five ? | ? Stage five ?+ ---+ ---+ -------+ *Each stage assumes the associated GFR level has been in effect for at least three months. ?Stages 1 to 5, with or without kidney disease, indicate chronic kidney disease. Notes: Determination of stages one and two (with eGFR >59mL/min/1.73 m2) requires estimation of kidney damage for at least three months as defined by structural or functional abnormalities of the kidney, manifested by either:Pathological abnormalities or Markers of kidney damage (including abnormalities in the composition of the blood or urine or abnormalities in imaging tests). Lab Interpretation Abnormal (test code = 72430-6) [facility] [facility] METABOLIC PANEL (NA, K, CL, CO2, GLUCOSE, BUN, CREATININE, [place])2021-09-01 21:55:22 Test Item Value Reference Range Interpretation Comments NA (test code = 130 mmol/L 135-145 L 8590324722) K (test code = 4.2 mmol/L 3.5-5.0 1355296546) CL (test code = 103 mmol/L 98-108 7469232392) CO2 TOTAL (test code = 20 mmol/L 23-31 L 6721895108) AGAP (test code = 2-16 7364266795) BUN (test code = 20 mg/dL 7-23 5271593200) GLUCOSE (test code = 106 mg/dL 70-110 0913049440) CREATININE (test code = 1.51 mg/dL 0.60-1.25 H 6947651623) CALCIUM (test code = 8.5 mg/dL 8.6-10.6 L 2625381805) eGFR (test code = mL/min/1.73m2 0231517272) GILBERTO (test code = GILBERTO) Association of Glomerular Filtration Rate (GFR) and Staging of Kidney Disease* + --+ --+ ------+| GFR (mL/min/1.73 m2) ?| With Kidney Damage ?| ?Without Kidney Damage+ --------+ --------+ +| ?>90 ?| ?Stage one ?| ? Normal ?+ ---+ ---+ -------+| ?60-89 ?| ?Stage two ?| ? Decreased GFR ? + --+ --+ ------+| ?30-59 ?| ?Stage three ?| ? Stage three ? + --+ --+ ------+| ?15-29 ?| ?Stage four ? | ? Stage four ?+ ---+ ---+ -------+| ?<15 (or dialysis) ? ?| ?Stage five ? | ? Stage five ?+ ---+ ---+ -------+ *Each stage assumes the associated GFR level has been in effect for at least three months. ?Stages 1 to 5, with or without kidney disease, indicate chronic kidney disease. Notes: Determination of stages one and two (with eGFR >59mL/min/1.73 m2) requires estimation of kidney damage for at least three months as defined by structural or functional abnormalities of the kidney, manifested by either:Pathological abnormalities or Markers of kidney damage (including abnormalities in the composition of the blood or urine or abnormalities in imaging tests). Lab Interpretation Abnormal (test code = 62699-4) [facility] DNA [id number] 10:31:32 Test Item Value Reference Range Interpretation Comments Coagulase Negative Positive Negative, See A Staphylococcus (test Comment/Narrative code = 12503-6) GILBERTO (test code = GILBERTO) Coagulase negative Staphylococcus (CoNS) detected by DNA probe. ?CoNS often contaminate blood cultures from skin colonization during phlebotomy. ?Preferred management is to repeat blood cultures, and monitor off antibiotics. ?Contamination is suggested by culture growth after 48 hours, or growth in single culture (i.e., one of two sets). ?True bacteremia is suggested by the fever, hypotension, and leukocytosis that are not explained by an alternative infection, or indwelling foreign devices that appear infected (catheters, lines, or prostheses). Consider Infectious Diseases consultation if differentiation of CoNS bacteremia from contamination is uncertain. If clinical context suggests true bacteremia, preferred therapy is vancomycin. Please contact the Antimicrobial Stewardship Program with questions.Pager: ?[phone] Testing included eleven identification and three resistance marker targets. Lab Interpretation Abnormal (test code = 01013-0) [facility] DNA [id number] 10:31:32 Test Item Value Reference Range Interpretation Comments Coagulase Negative Positive Negative, See A Staphylococcus (test Comment/Narrative code = 82618-1) GILBERTO (test code = GILBERTO) Coagulase negative Staphylococcus (CoNS) detected by DNA probe. ?CoNS often contaminate blood cultures from skin colonization during phlebotomy. ?Preferred management is to repeat blood cultures, and monitor off antibiotics. ?Contamination is suggested by culture growth after 48 hours, or growth in single culture (i.e., one of two sets). ?True bacteremia is suggested by the fever, hypotension, and leukocytosis that are not explained by an alternative infection, or indwelling foreign devices that appear infected (catheters, lines, or prostheses). Consider Infectious Diseases consultation if differentiation of CoNS bacteremia from contamination is uncertain. If clinical context suggests true bacteremia, preferred therapy is vancomycin. Please contact the Antimicrobial Stewardship Program with questions.Pager: ?[phone] Testing included eleven identification and three resistance marker targets. Lab Interpretation Abnormal (test code = 53925-5) [facility] (NA, K, CL, CO2, GLUCOSE, BUN, CREATININE, CA)2021-09-01 08:38:47 Test Item Value Reference Range Interpretation Comments NA (test code = 130 mmol/L 135-145 L 7848001684) K (test code = 4.0 mmol/L 3.5-5.0 4265479773) CL (test code = 105 mmol/L 98-108 7992570369) CO2 TOTAL (test code = 20 mmol/L 23-31 L 0500039501) AGAP (test code = 2-16 2647085658) BUN (test code = 21 mg/dL 7-23 8124834408) GLUCOSE (test code = 88 mg/dL 70-110 0500952814) CREATININE (test code = 1.31 mg/dL 0.60-1.25 H 0239563387) CALCIUM (test code = 8.5 mg/dL 8.6-10.6 L 3623902797) eGFR (test code = mL/min/1.73m2 2498537708) GILBERTO (test code = GILBERTO) Association of Glomerular Filtration Rate (GFR) and Staging of Kidney Disease* + --+ --+ ------+| GFR (mL/min/1.73 m2) ?| With Kidney Damage ?| ?Without Kidney Damage+ --------+ --------+ +| ?>90 ?| ?Stage one ?| ? Normal ?+ ---+ ---+ -------+| ?60-89 ?| ?Stage two ?| ? Decreased GFR ? + --+ --+ ------+| ?30-59 ?| ?Stage three ?| ? Stage three ? + --+ --+ ------+| ?15-29 ?| ?Stage four ? | ? Stage four ?+ ---+ ---+ -------+| ?<15 (or dialysis) ? ?| ?Stage five ? | ? Stage five ?+ ---+ ---+ -------+ *Each stage assumes the associated GFR level has been in effect for at least three months. ?Stages 1 to 5, with or without kidney disease, indicate chronic kidney disease. Notes: Determination of stages one and two (with eGFR >59mL/min/1.73 m2) requires estimation of kidney damage for at least three months as defined by structural or functional abnormalities of the kidney, manifested by either:Pathological abnormalities or Markers of kidney damage (including abnormalities in the composition of the blood or urine or abnormalities in imaging tests). Lab Interpretation Abnormal (test code = 58490-5) [facility] METABOLIC PANEL (NA, K, CL, CO2, GLUCOSE, BUN, CREATININE, CA)2021-09-01 08:38:47 Test Item Value Reference Range Interpretation Comments NA (test code = 130 mmol/L 135-145 L 8924885473) K (test code = 4.0 mmol/L 3.5-5.0 6298111029) CL (test code = 105 mmol/L 98-108 8215266013) CO2 TOTAL (test code = 20 mmol/L 23-31 L 8615096830) AGAP (test code = 2-16 2473216140) BUN (test code = 21 mg/dL 7-23 4479786228) GLUCOSE (test code = 88 mg/dL 70-110 7910580024) CREATININE (test code = 1.31 mg/dL 0.60-1.25 H 6327282748) CALCIUM (test code = 8.5 mg/dL 8.6-10.6 L 9456475323) eGFR (test code = mL/min/1.73m2 9608136964) GILBERTO (test code = GILBERTO) Association of Glomerular Filtration Rate (GFR) and Staging of Kidney Disease* + --+ --+ ------+| GFR (mL/min/1.73 m2) ?| With Kidney Damage ?| ?Without Kidney Damage+ --------+ --------+ +| ?>90 ?| ?Stage one ?| ? Normal ?+ ---+ ---+ -------+| ?60-89 ?| ?Stage two ?| ? Decreased GFR ? + --+ --+ ------+| ?30-59 ?| ?Stage three ?| ? Stage three ? + --+ --+ ------+| ?15-29 ?| ?Stage four ? | ? Stage four ?+ ---+ ---+ -------+| ?<15 (or dialysis) ? ?| ?Stage five ? | ? Stage five ?+ ---+ ---+ -------+ *Each stage assumes the associated GFR level has been in effect for at least three months. ?Stages 1 to 5, with or without kidney disease, indicate chronic kidney disease. Notes: Determination of stages one and two (with eGFR >59mL/min/1.73 m2) requires estimation of kidney damage for at least three months as defined by structural or functional abnormalities of the kidney, manifested by either:Pathological abnormalities or Markers of kidney damage (including abnormalities in the composition of the blood or urine or abnormalities in imaging tests). Lab Interpretation Abnormal (test code = 83005-5) [facility] WITH [id number] 08:13:43 Test Item Value Reference Range Interpretation Comments WBC (test code = See_Comment [Automated 6690-2) message] The sy stem which generated this result transmitted reference range : 4.20 - 10.70 10*3/?L. The reference range was not used to interpret this result as normal/abnormal . RBC (test code = See_Comment L [Automated 789-8) message] The sy stem which generated this result transmitted reference range : 4.26 - 5.52 10*6/?L. The reference range was not used to interpret this result as normal/abnormal . HGB (test code = 11.4 g/dL 12.2-16.4 L 718-7) HCT (test code = 33.7 % 38.4-49.3 L 4544-3) MCV (test code = 86.6 fL 81.7-95.6 787-2) MCH (test code = 29.3 pg 26.1-32.7 785-6) MCHC (test code = 33.8 g/dL 31.2-35.0 786-4) RDW-SD (test code = 43.0 fL 38.5-51.6 41644-6) RDW-CV (test code = 13.7 % 12.1-15.4 788-0) PLT (test code = See_Comment [Automated 777-3) message] The sy stem which generated this result transmitted reference range : 150 - 328 10*3/ ?L. The reference r meredith was not used to interpret this result as normal/abnormal . MPV (test code = 9.9 fL 9.8-13.0 44333-8) NRBC/100 WBC (test See_Comment [Automat ed code = 2897648087) message] The system which generated this result transmitted reference range : 0.0 - 10.0 /100 WBCs. The refer ence range was not u sed to interpret th is result as normal/abnormal . NRBC x10^3 (test code <0.01 See_Comment [Auto mated = 8143301527) message] The s ystem which generated this result transmitted reference range : 10*3/?L. The reference range was not used to interpret this result as normal/abnormal . GRAN MAT (NEUT) % 48.2 % (test code = 770-8) IMM GRAN % (test code 0.40 % = 6777690837) LYMPH % (test code = 39.5 % 736-9) MONO % (test code = 9.0 % 5905-5) EOS % (test code = 2.3 % 713-8) BASO % (test code = 0.6 % 706-2) GRAN MAT x10^3(ANC) 2.35 10*3/uL 1.99-6.95 (test code = 7698516249) IMM GRAN x10^3 (test <0.03 0.00-0.06 code = 2751563924) LYMPH x10^3 (test code 1.93 10*3/uL 1.09-3.23 = 731-0) MONO x10^3 (test code 0.44 10*3/uL 0.36-1.02 = 742-7) EOS x10^3 (test code = 0.11 10*3/uL 0.06-0.53 711-2) BASO x10^3 (test code 0.03 10*3/uL 0.01-0.09 = 704-7) Lab Interpretation Abnormal (test code = 37951-6) [facility] WITH [id number] 08:13:43 Test Item Value Reference Range Interpretation Comments WBC (test code = See_Comment [Automated 9990-2) message] The sy stem which generated this result transmitted reference range : 4.20 - 10.70 10*3/?L. The reference range was not used to interpret this result as normal/abnormal . RBC (test code = See_Comment L [Automated 939-8) message] The sy stem which generated this result transmitted reference range : 4.26 - 5.52 10*6/?L. The reference range was not used to interpret this result as normal/abnormal . HGB (test code = 11.4 g/dL 12.2-16.4 L 718-7) HCT (test code = 33.7 % 38.4-49.3 L 4544-3) MCV (test code = 86.6 fL 81.7-95.6 787-2) MCH (test code = 29.3 pg 26.1-32.7 785-6) MCHC (test code = 33.8 g/dL 31.2-35.0 786-4) RDW-SD (test code = 43.0 fL 38.5-51.6 51082-4) RDW-CV (test code = 13.7 % 12.1-15.4 788-0) PLT (test code = See_Comment [Automated 777-3) message] The sy stem which generated this result transmitted reference range : 150 - 328 10*3/ ?L. The reference r meredith was not used to interpret this result as normal/abnormal . MPV (test code = 9.9 fL 9.8-13.0 08321-7) NRBC/100 WBC (test See_Comment [Automat ed code = 2484936658) message] The system which generated this result transmitted reference range : 0.0 - 10.0 /100 WBCs. The refer ence range was not u sed to interpret th is result as normal/abnormal . NRBC x10^3 (test code <0.01 See_Comment [Auto mated = 1221400350) message] The s ystem which generated this result transmitted reference range : 10*3/?L. The reference range was not used to interpret this result as normal/abnormal . GRAN MAT (NEUT) % 48.2 % (test code = 770-8) IMM GRAN % (test code 0.40 % = 8557418338) LYMPH % (test code = 39.5 % 736-9) MONO % (test code = 9.0 % 5905-5) EOS % (test code = 2.3 % 713-8) BASO % (test code = 0.6 % 706-2) GRAN MAT x10^3(ANC) 2.35 10*3/uL 1.99-6.95 (test code = 2682005813) IMM GRAN x10^3 (test <0.03 0.00-0.06 code = 9489596803) LYMPH x10^3 (test code 1.93 10*3/uL 1.09-3.23 = 731-0) MONO x10^3 (test code 0.44 10*3/uL 0.36-1.02 = 742-7) EOS x10^3 (test code = 0.11 10*3/uL 0.06-0.53 711-2) BASO x10^3 (test code 0.03 10*3/uL 0.01-0.09 = 704-7) Lab Interpretation Abnormal (test code = 78107-7) [facility] [id number] 06:37:20 Test Item Value Reference Range Interpretation Comments MAGNESIUM (test code = 6234037245) 1.9 mg/dL 1.7-2.4 Lab Interpretation (test code = Normal 01092-7) [facility] [id number] 06:37:20 Test Item Value Reference Range Interpretation Comments MAGNESIUM (test code = 4347027540) 1.9 mg/dL 1.7-2.4 Lab Interpretation (test code = Normal 88294-4) [facility] METABOLIC PANEL (NA, K, CL, CO2, GLUCOSE, BUN, CREATININE, CA)2021-09-01 02:46:47 Test Item Value Reference Range Interpretation Comments NA (test code = 132 mmol/L 135-145 L 1340752610) K (test code = 4.0 mmol/L 3.5-5.0 8483074911) CL (test code = 102 mmol/L 98-108 6515836145) CO2 TOTAL (test code = 21 mmol/L 23-31 L 2281182679) AGAP (test code = 2-16 3130026556) BUN (test code = 24 mg/dL 7-23 H 5521931841) GLUCOSE (test code = 95 mg/dL 70-110 3989011962) CREATININE (test code = 1.40 mg/dL 0.60-1.25 H 2433687377) CALCIUM (test code = 8.6 mg/dL 8.6-10.6 8432245268) eGFR (test code = mL/min/1.73m2 4069411396) GILBERTO (test code = GILBERTO) Association of Glomerular Filtration Rate (GFR) and Staging of Kidney Disease* + --+ --+ ------+| GFR (mL/min/1.73 m2) ?| With Kidney Damage ?| ?Without Kidney Damage+ --------+ --------+ +| ?>90 ?| ?Stage one ?| ? Normal ?+ ---+ ---+ -------+| ?60-89 ?| ?Stage two ?| ? Decreased GFR ? + --+ --+ ------+| ?30-59 ?| ?Stage three ?| ? Stage three ? + --+ --+ ------+| ?15-29 ?| ?Stage four ? | ? Stage four ?+ ---+ ---+ -------+| ?<15 (or dialysis) ? ?| ?Stage five ? | ? Stage five ?+ ---+ ---+ -------+ *Each stage assumes the associated GFR level has been in effect for at least three months. ?Stages 1 to 5, with or without kidney disease, indicate chronic kidney disease. Notes: Determination of stages one and two (with eGFR >59mL/min/1.73 m2) requires estimation of kidney damage for at least three months as defined by structural or functional abnormalities of the kidney, manifested by either:Pathological abnormalities or Markers of kidney damage (including abnormalities in the composition of the blood or urine or abnormalities in imaging tests). Lab Interpretation Abnormal (test code = 74276-2) [facility] METABOLIC PANEL (NA, K, CL, CO2, GLUCOSE, BUN, CREATININE, CA)2021-09-01 02:46:47 Test Item Value Reference Range Interpretation Comments NA (test code = 132 mmol/L 135-145 L 8182749077) K (test code = 4.0 mmol/L 3.5-5.0 7210553748) CL (test code = 102 mmol/L 98-108 9745893093) CO2 TOTAL (test code = 21 mmol/L 23-31 L 3735771590) AGAP (test code = 2-16 9291240978) BUN (test code = 24 mg/dL 7-23 H 6777954211) GLUCOSE (test code = 95 mg/dL 70-110 8345538122) CREATININE (test code = 1.40 mg/dL 0.60-1.25 H 9502296809) CALCIUM (test code = 8.6 mg/dL 8.6-10.6 2181800109) eGFR (test code = mL/min/1.73m2 4624056631) GILBERTO (test code = GILBERTO) Association of Glomerular Filtration Rate (GFR) and Staging of Kidney Disease* + --+ --+ ------+| GFR (mL/min/1.73 m2) ?| With Kidney Damage ?| ?Without Kidney Damage+ --------+ --------+ +| ?>90 ?| ?Stage one ?| ? Normal ?+ ---+ ---+ -------+| ?60-89 ?| ?Stage two ?| ? Decreased GFR ? + --+ --+ ------+| ?30-59 ?| ?Stage three ?| ? Stage three ? + --+ --+ ------+| ?15-29 ?| ?Stage four ? | ? Stage four ?+ ---+ ---+ -------+| ?<15 (or dialysis) ? ?| ?Stage five ? | ? Stage five ?+ ---+ ---+ -------+ *Each stage assumes the associated GFR level has been in effect for at least three months. ?Stages 1 to 5, with or without kidney disease, indicate chronic kidney disease. Notes: Determination of stages one and two (with eGFR >59mL/min/1.73 m2) requires estimation of kidney damage for at least three months as defined by structural or functional abnormalities of the kidney, manifested by either:Pathological abnormalities or Markers of kidney damage (including abnormalities in the composition of the blood or urine or abnormalities in imaging tests). Lab Interpretation Abnormal (test code = 10379-3) [facility] Whole [id number] 12:49:48 Test Item Value Reference Range Interpretation Comments LACTIC ACID (test code = 2.02 mmol/L 0.50-2.20 QUE S 6826418980) Lab Interpretation (test code = Normal 17533-8) [facility] [id number] 12:49:48 Test Item Value Reference Range Interpretation Comments LACTIC ACID (test code = 2.02 mmol/L 0.50-2.20 QUE S 2266149678) Lab Interpretation (test code = Normal 32542-7) [facility] METABOLIC PANEL (NA, K, CL, CO2, GLUCOSE, BUN, CREATININE, CA)2021-08-31 12:29:06 Test Item Value Reference Range Interpretation Comments NA (test code = 129 mmol/L 135-145 L 7049620397) K (test code = 3.6 mmol/L 3.5-5.0 7421852118) CL (test code = 101 mmol/L 98-108 6362602147) CO2 TOTAL (test code = 18 mmol/L 23-31 L 2242587923) AGAP (test code = 2-16 3891635953) BUN (test code = 35 mg/dL 7-23 H 9299122583) GLUCOSE (test code = 97 mg/dL 70-110 8913852067) CREATININE (test code = 1.58 mg/dL 0.60-1.25 H 7148298166) CALCIUM (test code = 8.3 mg/dL 8.6-10.6 L 6473732616) eGFR (test code = mL/min/1.73m2 7397620284) GILBERTO (test code = GILBERTO) Association of Glomerular Filtration Rate (GFR) and Staging of Kidney Disease* + --+ --+ ------+| GFR (mL/min/1.73 m2) ?| With Kidney Damage ?| ?Without Kidney Damage+ --------+ --------+ +| ?>90 ?| ?Stage one ?| ? Normal ?+ ---+ ---+ -------+| ?60-89 ?| ?Stage two ?| ? Decreased GFR ? + --+ --+ ------+| ?30-59 ?| ?Stage three ?| ? Stage three ? + --+ --+ ------+| ?15-29 ?| ?Stage four ? | ? Stage four ?+ ---+ ---+ -------+| ?<15 (or dialysis) ? ?| ?Stage five ? | ? Stage five ?+ ---+ ---+ -------+ *Each stage assumes the associated GFR level has been in effect for at least three months. ?Stages 1 to 5, with or without kidney disease, indicate chronic kidney disease. Notes: Determination of stages one and two (with eGFR >59mL/min/1.73 m2) requires estimation of kidney damage for at least three months as defined by structural or functional abnormalities of the kidney, manifested by either:Pathological abnormalities or Markers of kidney damage (including abnormalities in the composition of the blood or urine or abnormalities in imaging tests). Lab Interpretation Abnormal (test code = 88459-7) [facility] METABOLIC PANEL (NA, K, CL, CO2, GLUCOSE, BUN, CREATININE, CA)2021-08-31 12:29:06 Test Item Value Reference Range Interpretation Comments NA (test code = 129 mmol/L 135-145 L 4616062100) K (test code = 3.6 mmol/L 3.5-5.0 4228205096) CL (test code = 101 mmol/L 98-108 4070500402) CO2 TOTAL (test code = 18 mmol/L 23-31 L 5641807619) AGAP (test code = 2-16 2028655058) BUN (test code = 35 mg/dL 7-23 H 0654774311) GLUCOSE (test code = 97 mg/dL 70-110 2783499082) CREATININE (test code = 1.58 mg/dL 0.60-1.25 H 8480555665) CALCIUM (test code = 8.3 mg/dL 8.6-10.6 L 5074627395) eGFR (test code = mL/min/1.73m2 2389730149) GILBERTO (test code = GILBERTO) Association of Glomerular Filtration Rate (GFR) and Staging of Kidney Disease* + --+ --+ ------+| GFR (mL/min/1.73 m2) ?| With Kidney Damage ?| ?Without Kidney Damage+ --------+ --------+ +| ?>90 ?| ?Stage one ?| ? Normal ?+ ---+ ---+ -------+| ?60-89 ?| ?Stage two ?| ? Decreased GFR ? + --+ --+ ------+| ?30-59 ?| ?Stage three ?| ? Stage three ? + --+ --+ ------+| ?15-29 ?| ?Stage four ? | ? Stage four ?+ ---+ ---+ -------+| ?<15 (or dialysis) ? ?| ?Stage five ? | ? Stage five ?+ ---+ ---+ -------+ *Each stage assumes the associated GFR level has been in effect for at least three months. ?Stages 1 to 5, with or without kidney disease, indicate chronic kidney disease. Notes: Determination of stages one and two (with eGFR >59mL/min/1.73 m2) requires estimation of kidney damage for at least three months as defined by structural or functional abnormalities of the kidney, manifested by either:Pathological abnormalities or Markers of kidney damage (including abnormalities in the composition of the blood or urine or abnormalities in imaging tests). Lab Interpretation Abnormal (test code = 56295-6) [facility] [id number] 07:42:44 Test Item Value Reference Range Interpretation Comments TSH (test code = See_Comment [Automated message] 1123980050) The system [employer] generated this result transmitted ref erence range: 0.45 - 4 .70 mIU/L. The refe rence range was not u sed to interpret this result as normal/abnor mal. Lab Interpretation (test Normal code = 75939-2) [facility] [id number] 07:42:44 Test Item Value Reference Range Interpretation Comments TSH (test code = See_Comment [Automated message] 6433192741) The system [employer] generated this result transmitted ref erence range: 0.45 - 4 .70 mIU/L. The refe rence range was not u sed to interpret this result as normal/abnor mal. Lab Interpretation (test Normal code = 77973-5) [facility] METABOLIC PANEL (NA, K, CL, CO2, GLUCOSE, BUN, CREATININE, CA)2021-08-31 07:40:43 Test Item Value Reference Range Interpretation Comments NA (test code = 129 mmol/L 135-145 L 2755635186) K (test code = 3.8 mmol/L 3.5-5.0 Slight 1325958821) hemolysis CL (test code = 102 mmol/L 98-108 7134044483) CO2 TOTAL (test code 18 mmol/L 23-31 L = 3157900807) AGAP (test code = 2-16 0408056241) BUN (test code = 46 mg/dL 7-23 H Slight 3066010382) hemolysis GLUCOSE (test code = 100 mg/dL 70-110 1936744727) CREATININE (test code 1.72 mg/dL 0.60-1.25 H = 4192630971) CALCIUM (test code = 8.5 mg/dL 8.6-10.6 L 1802785192) eGFR (test code = mL/min/1.73m2 1065852644) GILBERTO (test code = GILBERTO) Association of Glomerular Filtration Rate (GFR) and Staging of Kidney Disease* + -----+ --------+ +| GFR (mL/min/1.73 m2) ?| With Kidney Damage ?| ?Without Kidney Damage+ +------- +---- --+| ?>90 ?| ?Stage one ?| ? Normal ?+ ------+ ---------+--------- +| ?60-89 ?| ?Stage two ?| ? Decreased GFR ? + -----+ --------+ +| ?30-59 ?| ?Stage three ?| ? Stage three ? + -----+ --------+ +| ?15-29 ?| ?Stage four ? | ? Stage four ?+ ------+ ---------+--------- +| ?<15 (or dialysis) ? ?| ?Stage five ? | ? Stage five ?+ ------+ ---------+--------- + *Each stage assumes the associated GFR level has been in effect for at least three months. ?Stages 1 to 5, with or without kidney disease, indicate chronic kidney disease. Notes: Determination of stages one and two (with eGFR >59mL/min/1.73 m2) requires estimation of kidney damage for at least three months as defined by structural or functional abnormalities of the kidney, manifested by either:Pathological abnormalities or Markers of kidney damage (including abnormalities in the composition of the blood or urine or abnormalities in imaging tests). Lab Interpretation Abnormal (test code = 17346-1) [facility] METABOLIC PANEL (NA, K, CL, CO2, GLUCOSE, BUN, CREATININE, CA)2021-08-31 07:40:43 Test Item Value Reference Range Interpretation Comments NA (test code = 129 mmol/L 135-145 L 4064200923) K (test code = 3.8 mmol/L 3.5-5.0 Slight 3786580931) hemolysis CL (test code = 102 mmol/L 98-108 9237267835) CO2 TOTAL (test code 18 mmol/L 23-31 L = 1485855272) AGAP (test code = 2-16 4492013769) BUN (test code = 46 mg/dL 7-23 H Slight 2835728156) hemolysis GLUCOSE (test code = 100 mg/dL 70-110 4465009320) CREATININE (test code 1.72 mg/dL 0.60-1.25 H = 5914113941) CALCIUM (test code = 8.5 mg/dL 8.6-10.6 L 2572363478) eGFR (test code = mL/min/1.73m2 4337664290) GILBERTO (test code = GILBERTO) Association of Glomerular Filtration Rate (GFR) and Staging of Kidney Disease* + -----+ --------+ +| GFR (mL/min/1.73 m2) ?| With Kidney Damage ?| ?Without Kidney Damage+ +------- +---- --+| ?>90 ?| ?Stage one ?| ? Normal ?+ ------+ ---------+--------- +| ?60-89 ?| ?Stage two ?| ? Decreased GFR ? + -----+ --------+ +| ?30-59 ?| ?Stage three ?| ? Stage three ? + -----+ --------+ +| ?15-29 ?| ?Stage four ? | ? Stage four ?+ ------+ ---------+--------- +| ?<15 (or dialysis) ? ?| ?Stage five ? | ? Stage five ?+ ------+ ---------+--------- + *Each stage assumes the associated GFR level has been in effect for at least three months. ?Stages 1 to 5, with or without kidney disease, indicate chronic kidney disease. Notes: Determination of stages one and two (with eGFR >59mL/min/1.73 m2) requires estimation of kidney damage for at least three months as defined by structural or functional abnormalities of the kidney, manifested by either:Pathological abnormalities or Markers of kidney damage (including abnormalities in the composition of the blood or urine or abnormalities in imaging tests). Lab Interpretation Abnormal (test code = 37303-2) [facility] [id number] 07:08:01 Test Item Value Reference Range Interpretation Comments LACTIC ACID (test code = 1.96 mmol/L 0.50-2.20 QUE S [id number]) Lab Interpretation (test code = Normal 91228-8) [facility] [id number] 07:08:01 Test Item Value Reference Range Interpretation Comments LACTIC ACID (test code = 1.96 mmol/L 0.50-2.20 QUE S [id number]) Lab Interpretation (test code = Normal 58176-3) [facility], SERUM OR [id number] 06:33:43 Test Item Value Reference Range Interpretation Comments OSMOLALITY (test code = See_Comment [Au tomated message] [id number]) The system [employer] generated this result transmitted ref erence range: 278 - 30 5 mOsm/kg. The re ference range was not u sed to interpret this result as normal/abnor mal. Lab Interpretation (test Normal code = 55257-7) [facility], SERUM OR [id number] 06:33:43 Test Item Value Reference Range Interpretation Comments OSMOLALITY (test code = See_Comment [Au tomated message] [id number]) The system [employer] generated this result transmitted ref erence range: 278 - 30 5 mOsm/kg. The re ference range was not u sed to interpret this result as normal/abnor mal. Lab Interpretation (test Normal code = 87068-8) [facility] [id number] 04:28:44 Test Item Value Reference Interpretation Comments Range TROPONIN I (test 0.003 ng/mL See_Comment [Automated code = 5253739503) message] The system which generated this result transmitted reference range : <=0.034. The reference range was not used to interpret this result as normal/abnormal . GILBERTO (test code = Reference (Normal) GILBERTO) Range (defined by the 99th percentile reference limit): <= 0.034 ng/mL Note: Cardiac troponin begins to rise 3-4 hours after the onset of ischemia. Repeat in 4-6 hours if the sample was drawn within 3-4 hours of the onset of the symptom and found normal. Diagnosis of myocardial injury is made with acute changes in cTn concentrations with at least one serial sample above the 99th percentile upper reference limit (URL), taken together with the patient's clinical presentation. Biotin has been reported to cause a negative bias, interpret results relative to patient's use of biotin. Lab Interpretation Normal (test code = 48868-6) [facility] [id number] 04:28:44 Test Item Value Reference Interpretation Comments Range TROPONIN I (test 0.003 ng/mL See_Comment [Automated code = 1915552328) message] The system which generated this result transmitted reference range : <=0.034. The reference range was not used to interpret this result as normal/abnormal . GILBERTO (test code = Reference (Normal) GILBERTO) Range (defined by the 99th percentile reference limit): <= 0.034 ng/mL Note: Cardiac troponin begins to rise 3-4 hours after the onset of ischemia. Repeat in 4-6 hours if the sample was drawn within 3-4 hours of the onset of the symptom and found normal. Diagnosis of myocardial injury is made with acute changes in cTn concentrations with at least one serial sample above the 99th percentile upper reference limit (URL), taken together with the patient's clinical presentation. Biotin has been reported to cause a negative bias, interpret results relative to patient's use of biotin. Lab Interpretation Normal (test code = 51444-9) [facility] METABOLIC PANEL (NA, K, CL, CO2, GLUCOSE, BUN, CREATININE, CA)2021-08-31 04:07:42 Test Item Value Reference Range Interpretation Comments NA (test code = 125 mmol/L 135-145 L 0775846916) K (test code = 4.1 mmol/L 3.5-5.0 Slight 1342409000) hemolysis CL (test code = 100 mmol/L 98-108 0288495466) CO2 TOTAL (test code 17 mmol/L 23-31 L = 8227982272) AGAP (test code = 2-16 6324103017) BUN (test code = 52 mg/dL 7-23 H Slight 0621950180) hemolysis GLUCOSE (test code = 94 mg/dL 70-110 3824292797) CREATININE (test code 1.77 mg/dL 0.60-1.25 H = 8707796399) CALCIUM (test code = 8.2 mg/dL 8.6-10.6 L 5520945225) eGFR (test code = mL/min/1.73m2 4503355135) GILBERTO (test code = GILBERTO) Association of Glomerular Filtration Rate (GFR) and Staging of Kidney Disease* + -----+ --------+ +| GFR (mL/min/1.73 m2) ?| With Kidney Damage ?| ?Without Kidney Damage+ +------- +---- --+| ?>90 ?| ?Stage one ?| ? Normal ?+ ------+ ---------+--------- +| ?60-89 ?| ?Stage two ?| ? Decreased GFR ? + -----+ --------+ +| ?30-59 ?| ?Stage three ?| ? Stage three ? + -----+ --------+ +| ?15-29 ?| ?Stage four ? | ? Stage four ?+ ------+ ---------+--------- +| ?<15 (or dialysis) ? ?| ?Stage five ? | ? Stage five ?+ ------+ ---------+--------- + *Each stage assumes the associated GFR level has been in effect for at least three months. ?Stages 1 to 5, with or without kidney disease, indicate chronic kidney disease. Notes: Determination of stages one and two (with eGFR >59mL/min/1.73 m2) requires estimation of kidney damage for at least three months as defined by structural or functional abnormalities of the kidney, manifested by either:Pathological abnormalities or Markers of kidney damage (including abnormalities in the composition of the blood or urine or abnormalities in imaging tests). Lab Interpretation Abnormal (test code = 77343-7) [facility] (NA, K, CL, CO2, GLUCOSE, BUN, CREATININE, CA)2021-08-31 04:07:42 Test Item Value Reference Range Interpretation Comments NA (test code = 125 mmol/L 135-145 L 3949097018) K (test code = 4.1 mmol/L 3.5-5.0 Slight 3778422559) hemolysis CL (test code = 100 mmol/L 98-108 2364968227) CO2 TOTAL (test code 17 mmol/L 23-31 L = 0949642933) AGAP (test code = 2-16 8122887937) BUN (test code = 52 mg/dL 7-23 H Slight 8028561587) hemolysis GLUCOSE (test code = 94 mg/dL 70-110 2313356086) CREATININE (test code 1.77 mg/dL 0.60-1.25 H = 9606224973) CALCIUM (test code = 8.2 mg/dL 8.6-10.6 L 5672359055) eGFR (test code = mL/min/1.73m2 6175293203) GILBERTO (test code = GILBERTO) Association of Glomerular Filtration Rate (GFR) and Staging of Kidney Disease* + -----+ --------+ +| GFR (mL/min/1.73 m2) ?| With Kidney Damage ?| ?Without Kidney Damage+ +------- +---- --+| ?>90 ?| ?Stage one ?| ? Normal ?+ ------+ ---------+--------- +| ?60-89 ?| ?Stage two ?| ? Decreased GFR ? + -----+ --------+ +| ?30-59 ?| ?Stage three ?| ? Stage three ? + -----+ --------+ +| ?15-29 ?| ?Stage four ? | ? Stage four ?+ ------+ ---------+--------- +| ?<15 (or dialysis) ? ?| ?Stage five ? | ? Stage five ?+ ------+ ---------+--------- + *Each stage assumes the associated GFR level has been in effect for at least three months. ?Stages 1 to 5, with or without kidney disease, indicate chronic kidney disease. Notes: Determination of stages one and two (with eGFR >59mL/min/1.73 m2) requires estimation of kidney damage for at least three months as defined by structural or functional abnormalities of the kidney, manifested by either:Pathological abnormalities or Markers of kidney damage (including abnormalities in the composition of the blood or urine or abnormalities in imaging tests). Lab Interpretation Abnormal (test code = 83346-6) [facility] [id number] 00:22:59 Test Item Value Reference Interpretation Comments Range TROPONIN I (test 0.003 ng/mL See_Comment [Automated code = 7117536286) message] The system which generated this result transmitted reference range : <=0.034. The reference range was not used to interpret this result as normal/abnormal . GILBERTO (test code = Reference (Normal) GILBERTO) Range (defined by the 99th percentile reference limit): <= 0.034 ng/mL Note: Cardiac troponin begins to rise 3-4 hours after the onset of ischemia. Repeat in 4-6 hours if the sample was drawn within 3-4 hours of the onset of the symptom and found normal. Diagnosis of myocardial injury is made with acute changes in cTn concentrations with at least one serial sample above the 99th percentile upper reference limit (URL), taken together with the patient's clinical presentation. Biotin has been reported to cause a negative bias, interpret results relative to patient's use of biotin. Lab Interpretation Normal (test code = 39208-9) [facility] [id number] 00:22:59 Test Item Value Reference Range Interpretation Comments NT-proBNP (test code 55 pg/mL See_Comment [Autom ated = 6033429514) message] The system which generated this result transmitted reference range : <=125. The reference range was not used to interpret this result as normal/abnormal . GILBERTO (test code = GILBERTO) Biotin has been reported to cause a negative bias, interpret results relative to patient's use of biotin. Lab Interpretation Normal (test code = 79775-7) [id number] 00:22:59 Test Item Value Reference Interpretation Comments Range TROPONIN I (test 0.003 ng/mL See_Comment [Automated code = 3973255401) message] The system which generated this result transmitted reference range : <=0.034. The reference range was not used to interpret this result as normal/abnormal . GILBERTO (test code = Reference (Normal) GILBERTO) Range (defined by the 99th percentile reference limit): <= 0.034 ng/mL Note: Cardiac troponin begins to rise 3-4 hours after the onset of ischemia. Repeat in 4-6 hours if the sample was drawn within 3-4 hours of the onset of the symptom and found normal. Diagnosis of myocardial injury is made with acute changes in cTn concentrations with at least one serial sample above the 99th percentile upper reference limit (URL), taken together with the patient's clinical presentation. Biotin has been reported to cause a negative bias, interpret results relative to patient's use of biotin. Lab Interpretation Normal (test code = 09378-0) [facility] [id number] 00:22:59 Test Item Value Reference Range Interpretation Comments NT-proBNP (test code 55 pg/mL See_Comment [Autom ated = 9224654703) message] The system which generated this result transmitted reference range : <=125. The reference range was not used to interpret this result as normal/abnormal . GILBERTO (test code = GILBERTO) Biotin has been reported to cause a negative bias, interpret results relative to patient's use of biotin. Lab Interpretation Normal (test code = 13943-8) [facility]. METABOLIC PANEL ([id number])2021-08-31 00:07:17 Test Item Value Reference Range Interpretation Comments NA (test code = 126 mmol/L 135-145 L 9357283113) K (test code = 4.3 mmol/L 3.5-5.0 Slight 2898542241) hemolysis CL (test code = 96 mmol/L 98-108 L 5019616589) CO2 TOTAL (test code 18 mmol/L 23-31 L = 7325932258) AGAP (test code = 2-16 8163258711) BUN (test code = 58 mg/dL 7-23 H Slight 1376567513) hemolysis GLUCOSE (test code = 108 mg/dL 70-110 4859890712) CREATININE (test code 2.11 mg/dL 0.60-1.25 H = 7211041343) TOTAL BILI (test code 0.7 mg/dL 0.1-1.1 = 7684727097) CALCIUM (test code = 9.2 mg/dL 8.6-10.6 7991783315) T PROTEIN (test code 7.6 g/dL 6.3-8.2 = 3459922349) ALBUMIN (test code = 4.9 g/dL 3.5-5.0 7193972240) ALK PHOS (test code = 96 U/L 34-122 Slight 9272911876) hemolysis ALTv (test code = 27 U/L 5-50 1742-6) AST(SGOT) (test code 46 U/L 13-40 H Slight = 0230073014) hemolysis eGFR (test code = mL/min/1.73m2 5987372095) GILBERTO (test code = GILBERTO) Association of Glomerular Filtration Rate (GFR) and Staging of Kidney Disease* + -----+ --------+ +| GFR (mL/min/1.73 m2) ?| With Kidney Damage ?| ?Without Kidney Damage+ +------- +---- --+| ?>90 ?| ?Stage one ?| ? Normal ?+ ------+ ---------+--------- +| ?60-89 ?| ?Stage two ?| ? Decreased GFR ? + -----+ --------+ +| ?30-59 ?| ?Stage three ?| ? Stage three ? + -----+ --------+ +| ?15-29 ?| ?Stage four ? | ? Stage four ?+ ------+ ---------+--------- +| ?<15 (or dialysis) ? ?| ?Stage five ? | ? Stage five ?+ ------+ ---------+--------- + *Each stage assumes the associated GFR level has been in effect for at least three months. ?Stages 1 to 5, with or without kidney disease, indicate chronic kidney disease. Notes: Determination of stages one and two (with eGFR >59mL/min/1.73 m2) requires estimation of kidney damage for at least three months as defined by structural or functional abnormalities of the kidney, manifested by either:Pathological abnormalities or Markers of kidney damage (including abnormalities in the composition of the blood or urine or abnormalities in imaging tests). Lab Interpretation Abnormal (test code = 03113-0) [facility]. METABOLIC PANEL ([id number])2021-08-31 00:07:17 Test Item Value Reference Range Interpretation Comments NA (test code = 126 mmol/L 135-145 L 2999360831) K (test code = 4.3 mmol/L 3.5-5.0 Slight 1986992627) hemolysis CL (test code = 96 mmol/L 98-108 L 1747961473) CO2 TOTAL (test code 18 mmol/L 23-31 L = 4022314083) AGAP (test code = 2-16 4031838026) BUN (test code = 58 mg/dL 7-23 H Slight 2494876578) hemolysis GLUCOSE (test code = 108 mg/dL 70-110 0496791432) CREATININE (test code 2.11 mg/dL 0.60-1.25 H = 8157590388) TOTAL BILI (test code 0.7 mg/dL 0.1-1.1 = 1320930971) CALCIUM (test code = 9.2 mg/dL 8.6-10.6 5653988754) T PROTEIN (test code 7.6 g/dL 6.3-8.2 = 9436955677) ALBUMIN (test code = 4.9 g/dL 3.5-5.0 6773783294) ALK PHOS (test code = 96 U/L 34-122 Slight 0598333888) hemolysis ALTv (test code = 27 U/L 5-50 1742-6) AST(SGOT) (test code 46 U/L 13-40 H Slight = 1843206896) hemolysis eGFR (test code = mL/min/1.73m2 7355081777) GILBERTO (test code = GILBERTO) Association of Glomerular Filtration Rate (GFR) and Staging of Kidney Disease* + -----+ --------+ +| GFR (mL/min/1.73 m2) ?| With Kidney Damage ?| ?Without Kidney Damage+ +------- +---- --+| ?>90 ?| ?Stage one ?| ? Normal ?+ ------+ ---------+--------- +| ?60-89 ?| ?Stage two ?| ? Decreased GFR ? + -----+ --------+ +| ?30-59 ?| ?Stage three ?| ? Stage three ? + -----+ --------+ +| ?15-29 ?| ?Stage four ? | ? Stage four ?+ ------+ ---------+--------- +| ?<15 (or dialysis) ? ?| ?Stage five ? | ? Stage five ?+ ------+ ---------+--------- + *Each stage assumes the associated GFR level has been in effect for at least three months. ?Stages 1 to 5, with or without kidney disease, indicate chronic kidney disease. Notes: Determination of stages one and two (with eGFR >59mL/min/1.73 m2) requires estimation of kidney damage for at least three months as defined by structural or functional abnormalities of the kidney, manifested by either:Pathological abnormalities or Markers of kidney damage (including abnormalities in the composition of the blood or urine or abnormalities in imaging tests). Lab Interpretation Abnormal (test code = 23474-7) [facility] WITH [id number] 23:36:10 Test Item Value Reference Range Interpretation Comments WBC (test code = See_Comment [Automated 8890-2) message] The sy stem which generated this result transmitted reference range : 4.20 - 10.70 10*3/?L. The reference range was not used to interpret this result as normal/abnormal . RBC (test code = See_Comment [Automated 789-8) message] The sy stem which generated this result transmitted reference range : 4.26 - 5.52 10*6/?L. The reference range was not used to interpret this result as normal/abnormal . HGB (test code = 13.9 g/dL 12.2-16.4 718-7) HCT (test code = 38.7 % 38.4-49.3 4544-3) MCV (test code = 83.8 fL 81.7-95.6 787-2) MCH (test code = 30.1 pg 26.1-32.7 785-6) MCHC (test code = 35.9 g/dL 31.2-35.0 H 786-4) RDW-SD (test code = 41.7 fL 38.5-51.6 30451-9) RDW-CV (test code = 13.4 % 12.1-15.4 788-0) PLT (test code = See_Comment [Automated 777-3) message] The sy stem which generated this result transmitted reference range : 150 - 328 10*3/ ?L. The reference r meredith was not used to interpret this result as normal/abnormal . MPV (test code = 10.3 fL 9.8-13.0 86751-8) NRBC/100 WBC (test See_Comment [Automat ed code = 3286648080) message] The system which generated this result transmitted reference range : 0.0 - 10.0 /100 WBCs. The refer ence range was not u sed to interpret th is result as normal/abnormal . NRBC x10^3 (test code <0.01 See_Comment [Auto mated = 5948797915) message] The s ystem which generated this result transmitted reference range : 10*3/?L. The reference range was not used to interpret this result as normal/abnormal . GRAN MAT (NEUT) % 60.6 % (test code = 770-8) IMM GRAN % (test code 0.30 % = 4121668428) LYMPH % (test code = 29.1 % 736-9) MONO % (test code = 8.8 % 5905-5) EOS % (test code = 0.6 % 713-8) BASO % (test code = 0.6 % 706-2) GRAN MAT x10^3(ANC) 4.08 10*3/uL 1.99-6.95 (test code = 9633877566) IMM GRAN x10^3 (test <0.03 0.00-0.06 code = 5438592576) LYMPH x10^3 (test code 1.96 10*3/uL 1.09-3.23 = 731-0) MONO x10^3 (test code 0.59 10*3/uL 0.36-1.02 = 742-7) EOS x10^3 (test code = 0.04 10*3/uL 0.06-0.53 L 711-2) BASO x10^3 (test code 0.04 10*3/uL 0.01-0.09 = 704-7) Lab Interpretation Abnormal (test code = 88052-5) [facility] WITH [id number] 23:36:10 Test Item Value Reference Range Interpretation Comments WBC (test code = See_Comment [Automated 6690-2) message] The sy stem which generated this result transmitted reference range : 4.20 - 10.70 10*3/?L. The reference range was not used to interpret this result as normal/abnormal . RBC (test code = See_Comment [Automated 309-8) message] The sy stem which generated this result transmitted reference range : 4.26 - 5.52 10*6/?L. The reference range was not used to interpret this result as normal/abnormal . HGB (test code = 13.9 g/dL 12.2-16.4 718-7) HCT (test code = 38.7 % 38.4-49.3 4544-3) MCV (test code = 83.8 fL 81.7-95.6 787-2) MCH (test code = 30.1 pg 26.1-32.7 785-6) MCHC (test code = 35.9 g/dL 31.2-35.0 H 786-4) RDW-SD (test code = 41.7 fL 38.5-51.6 73858-5) RDW-CV (test code = 13.4 % 12.1-15.4 788-0) PLT (test code = See_Comment [Automated 777-3) message] The sy stem which generated this result transmitted reference range : 150 - 328 10*3/ ?L. The reference r meredith was not used to interpret this result as normal/abnormal . MPV (test code = 10.3 fL 9.8-13.0 66721-7) NRBC/100 WBC (test See_Comment [Automat ed code = 2596108923) message] The system which generated this result transmitted reference range : 0.0 - 10.0 /100 WBCs. The refer ence range was not u sed to interpret th is result as normal/abnormal . NRBC x10^3 (test code <0.01 See_Comment [Auto mated = 8630311878) message] The s ystem which generated this result transmitted reference range : 10*3/?L. The reference range was not used to interpret this result as normal/abnormal . GRAN MAT (NEUT) % 60.6 % (test code = 770-8) IMM GRAN % (test code 0.30 % = 6068605696) LYMPH % (test code = 29.1 % 736-9) MONO % (test code = 8.8 % 5905-5) EOS % (test code = 0.6 % 713-8) BASO % (test code = 0.6 % 706-2) GRAN MAT x10^3(ANC) 4.08 10*3/uL 1.99-6.95 (test code = 0669251113) IMM GRAN x10^3 (test <0.03 0.00-0.06 code = 5560145733) LYMPH x10^3 (test code 1.96 10*3/uL 1.09-3.23 = 731-0) MONO x10^3 (test code 0.59 10*3/uL 0.36-1.02 = 742-7) EOS x10^3 (test code = 0.04 10*3/uL 0.06-0.53 L 711-2) BASO x10^3 (test code 0.04 10*3/uL 0.01-0.09 = 704-7) Lab Interpretation Abnormal (test code = 90424-7) [facility] RAPID STREP SCREEN FOR GROUP [id number] 00:24:00 Test Item Value Reference Range Interpretation Comments POCT GP A STREP (test code = Negative Negative - Negative 48853-8) Lab Interpretation (test code = Normal 48827-5) [facility] 11:38:43 Test Item Value Reference Range Interpretation Comments PALB (test code = 59720-9) 25.2 mg/dL 18.0-45.0 Lab Interpretation (test code = Normal 07825-8) [facility]OL[facility] (NA, K, CL, CO2, GLUCOSE, BUN, CREATININE, CA)2021-08-05 11:30:59 Test Item Value Reference Range Interpretation Comments NA (test code = 140 mmol/L 135-145 8613611286) K (test code = 4.2 mmol/L 3.5-5.0 9288665912) CL (test code = 110 mmol/L 98-108 H 0195465472) CO2 TOTAL (test code = 27 mmol/L 23-31 1144552695) AGAP (test code = 2-16 2259463448) BUN (test code = 9 mg/dL 7-23 1599507289) GLUCOSE (test code = 86 mg/dL 70-110 3436498734) CREATININE (test code = 1.51 mg/dL 0.60-1.25 H 8487440880) CALCIUM (test code = 8.5 mg/dL 8.6-10.6 L 5814481460) eGFR (test code = mL/min/1.73m2 5088990695) GILBERTO (test code = GILBERTO) Association of Glomerular Filtration Rate (GFR) and Staging of Kidney Disease* + --+ --+ ------+| GFR (mL/min/1.73 m2) ?| With Kidney Damage ?| ?Without Kidney Damage+ --------+ --------+ +| ?>90 ?| ?Stage one ?| ? Normal ?+ ---+ ---+ -------+| ?60-89 ?| ?Stage two ?| ? Decreased GFR ? + --+ --+ ------+| ?30-59 ?| ?Stage three ?| ? Stage three ? + --+ --+ ------+| ?15-29 ?| ?Stage four ? | ? Stage four ?+ ---+ ---+ -------+| ?<15 (or dialysis) ? ?| ?Stage five ? | ? Stage five ?+ ---+ ---+ -------+ *Each stage assumes the associated GFR level has been in effect for at least three months. ?Stages 1 to 5, with or without kidney disease, indicate chronic kidney disease. Notes: Determination of stages one and two (with eGFR >59mL/min/1.73 m2) requires estimation of kidney damage for at least three months as defined by structural or functional abnormalities of the kidney, manifested by either:Pathological abnormalities or Markers of kidney damage (including abnormalities in the composition of the blood or urine or abnormalities in imaging tests). Lab Interpretation Abnormal (test code = 93430-0) [facility] 11:30:59 Test Item Value Reference Range Interpretation Comments MAGNESIUM (test code = 0380845748) 2.0 mg/dL 1.7-2.4 Lab Interpretation (test code = Normal 88269-4) [facility]21[facility] 11:30:59 Test Item Value Reference Range Interpretation Comments PHOSPHORUS (test code = 1927288885) 5.1 mg/dL 2.5-5.0 H Lab Interpretation (test code = Abnormal 35654-5) [facility] 11:30:59 Test Item Value Reference Range Interpretation Comments ALBUMIN (test code = 3869799424) 3.1 g/dL 3.5-5.0 L Lab Interpretation (test code = Abnormal 71583-5) [facility] Center[facility] WITH [id number] 11:05:58 Test Item Value Reference Range Interpretation Comments WBC (test code = See_Comment L [Automated 6690-2) message] The sy stem which generated this result transmitted reference range : 4.20 - 10.70 10*3/?L. The reference range was not used to interpret this result as normal/abnormal . RBC (test code = See_Comment L [Automated 789-8) message] The sy stem which generated this result transmitted reference range : 4.26 - 5.52 10*6/?L. The reference range was not used to interpret this result as normal/abnormal . HGB (test code = 10.7 g/dL 12.2-16.4 L 718-7) HCT (test code = 32.8 % 38.4-49.3 L 4544-3) MCV (test code = 93.4 fL 81.7-95.6 787-2) MCH (test code = 30.5 pg 26.1-32.7 785-6) MCHC (test code = 32.6 g/dL 31.2-35.0 786-4) RDW-SD (test code = 47.5 fL 38.5-51.6 69644-4) RDW-CV (test code = 14.0 % 12.1-15.4 788-0) PLT (test code = See_Comment [Automated 777-3) message] The sy stem which generated this result transmitted reference range : 150 - 328 10*3/ ?L. The reference r meredith was not used to interpret this result as normal/abnormal . MPV (test code = 9.5 fL 9.8-13.0 L 12211-9) NRBC/100 WBC (test See_Comment [Automat ed code = 5026680161) message] The system which generated this result transmitted reference range : 0.0 - 10.0 /100 WBCs. The refer ence range was not u sed to interpret th is result as normal/abnormal . NRBC x10^3 (test code <0.01 See_Comment [Auto mated = 0727723895) message] The s ystem which generated this result transmitted reference range : 10*3/?L. The reference range was not used to interpret this result as normal/abnormal . GRAN MAT (NEUT) % 52.5 % (test code = 770-8) IMM GRAN % (test code 0.30 % = 1694988209) LYMPH % (test code = 31.1 % 736-9) MONO % (test code = 11.7 % 5905-5) EOS % (test code = 3.9 % 713-8) BASO % (test code = 0.5 % 706-2) GRAN MAT x10^3(ANC) 2.03 10*3/uL 1.99-6.95 (test code = 7979791572) IMM GRAN x10^3 (test <0.03 0.00-0.06 code = 8072165002) LYMPH x10^3 (test code 1.20 10*3/uL 1.09-3.23 = 731-0) MONO x10^3 (test code 0.45 10*3/uL 0.36-1.02 = 742-7) EOS x10^3 (test code = 0.15 10*3/uL 0.06-0.53 711-2) BASO x10^3 (test code <0.03 0.01-0.09 = 704-7) Lab Interpretation Abnormal (test code = 48554-2) [facility] WITH [id number] 12:30:17 Test Item Value Reference Range Interpretation Comments WBC (test code = See_Comment L [Automated 7490-2) message] The sy stem which generated this result transmitted reference range : 4.20 - 10.70 10*3/?L. The reference range was not used to interpret this result as normal/abnormal . RBC (test code = See_Comment L [Automated 719-8) message] The sy stem which generated this result transmitted reference range : 4.26 - 5.52 10*6/?L. The reference range was not used to interpret this result as normal/abnormal . HGB (test code = 10.5 g/dL 12.2-16.4 L 718-7) HCT (test code = 33.2 % 38.4-49.3 L 4544-3) MCV (test code = 94.6 fL 81.7-95.6 787-2) MCH (test code = 29.9 pg 26.1-32.7 785-6) MCHC (test code = 31.6 g/dL 31.2-35.0 786-4) RDW-SD (test code = 49.2 fL 38.5-51.6 01954-6) RDW-CV (test code = 14.3 % 12.1-15.4 788-0) PLT (test code = See_Comment [Automated 777-3) message] The sy stem which generated this result transmitted reference range : 150 - 328 10*3/ ?L. The reference r meredith was not used to interpret this result as normal/abnormal . MPV (test code = 9.2 fL 9.8-13.0 L 39801-9) NRBC/100 WBC (test See_Comment [Automat ed code = 5819767725) message] The system which generated this result transmitted reference range : 0.0 - 10.0 /100 WBCs. The refer ence range was not u sed to interpret th is result as normal/abnormal . NRBC x10^3 (test code <0.01 See_Comment [Auto mated = 7885053734) message] The s ystem which generated this result transmitted reference range : 10*3/?L. The reference range was not used to interpret this result as normal/abnormal . GRAN MAT (NEUT) % 47.2 % (test code = 770-8) IMM GRAN % (test code 0.30 % = 9981808182) LYMPH % (test code = 36.0 % 736-9) MONO % (test code = 12.6 % 5905-5) EOS % (test code = 3.4 % 713-8) BASO % (test code = 0.5 % 706-2) GRAN MAT x10^3(ANC) 1.80 10*3/uL 1.99-6.95 L (test code = 7425096832) IMM GRAN x10^3 (test <0.03 0.00-0.06 code = 8720849714) LYMPH x10^3 (test code 1.37 10*3/uL 1.09-3.23 = 731-0) MONO x10^3 (test code 0.48 10*3/uL 0.36-1.02 = 742-7) EOS x10^3 (test code = 0.13 10*3/uL 0.06-0.53 711-2) BASO x10^3 (test code <0.03 0.01-0.09 = 704-7) Lab Interpretation Abnormal (test code = 05892-2) [facility] METABOLIC PANEL (NA, K, CL, CO2, GLUCOSE, BUN, CREATININE, CA)2021-08-04 12:17:48 Test Item Value Reference Range Interpretation Comments NA (test code = 139 mmol/L 135-145 4081555688) K (test code = 4.3 mmol/L 3.5-5.0 6133646358) CL (test code = 110 mmol/L 98-108 H 3605196671) CO2 TOTAL (test code = 26 mmol/L 23-31 2080132512) AGAP (test code = 2-16 5399805526) BUN (test code = 8 mg/dL 7-23 1870248163) GLUCOSE (test code = 87 mg/dL 70-110 5879365106) CREATININE (test code = 1.50 mg/dL 0.60-1.25 H 6175492100) CALCIUM (test code = 8.4 mg/dL 8.6-10.6 L 3814191431) eGFR (test code = mL/min/1.73m2 1861451667) GILBERTO (test code = GILBERTO) Association of Glomerular Filtration Rate (GFR) and Staging of Kidney Disease* + --+ --+ ------+| GFR (mL/min/1.73 m2) ?| With Kidney Damage ?| ?Without Kidney Damage+ --------+ --------+ +| ?>90 ?| ?Stage one ?| ? Normal ?+ ---+ ---+ -------+| ?60-89 ?| ?Stage two ?| ? Decreased GFR ? + --+ --+ ------+| ?30-59 ?| ?Stage three ?| ? Stage three ? + --+ --+ ------+| ?15-29 ?| ?Stage four ? | ? Stage four ?+ ---+ ---+ -------+| ?<15 (or dialysis) ? ?| ?Stage five ? | ? Stage five ?+ ---+ ---+ -------+ *Each stage assumes the associated GFR level has been in effect for at least three months. ?Stages 1 to 5, with or without kidney disease, indicate chronic kidney disease. Notes: Determination of stages one and two (with eGFR >59mL/min/1.73 m2) requires estimation of kidney damage for at least three months as defined by structural or functional abnormalities of the kidney, manifested by either:Pathological abnormalities or Markers of kidney damage (including abnormalities in the composition of the blood or urine or abnormalities in imaging tests). Lab Interpretation Abnormal (test code = 33857-0) [facility] Test Item Value Reference Range Interpretation Comments MAGNESIUM (test code = 0716563509) 1.9 mg/dL 1.7-2.4 Lab Interpretation (test code = Normal 92020-8) [facility] 12:17:48 Test Item Value Reference Range Interpretation Comments PHOSPHORUS (test code = 4016610270) 4.6 mg/dL 2.5-5.0 Lab Interpretation (test code = Normal 79733-1) [facility] WITH [id number] 11:23:38 Test Item Value Reference Range Interpretation Comments WBC (test code = See_Comment L [Automated 6690-2) message] The sy stem which generated this result transmitted reference range : 4.20 - 10.70 10*3/?L. The reference range was not used to interpret this result as normal/abnormal . RBC (test code = See_Comment L [Automated 789-8) message] The sy stem which generated this result transmitted reference range : 4.26 - 5.52 10*6/?L. The reference range was not used to interpret this result as normal/abnormal . HGB (test code = 9.8 g/dL 12.2-16.4 L 718-7) HCT (test code = 30.3 % 38.4-49.3 L 4544-3) MCV (test code = 93.2 fL 81.7-95.6 787-2) MCH (test code = 30.2 pg 26.1-32.7 785-6) MCHC (test code = 32.3 g/dL 31.2-35.0 786-4) RDW-SD (test code = 47.8 fL 38.5-51.6 06648-6) RDW-CV (test code = 14.1 % 12.1-15.4 788-0) PLT (test code = See_Comment [Automated 777-3) message] The sy stem which generated this result transmitted reference range : 150 - 328 10*3/ ?L. The reference r meredith was not used to interpret this result as normal/abnormal . MPV (test code = 9.3 fL 9.8-13.0 L 60648-1) NRBC/100 WBC (test See_Comment [Automat ed code = 7758563682) message] The system which generated this result transmitted reference range : 0.0 - 10.0 /100 WBCs. The refer ence range was not u sed to interpret th is result as normal/abnormal . NRBC x10^3 (test code <0.01 See_Comment [Auto mated = 3379586941) message] The s ystem which generated this result transmitted reference range : 10*3/?L. The reference range was not used to interpret this result as normal/abnormal . GRAN MAT (NEUT) % 49.3 % (test code = 770-8) IMM GRAN % (test code 0.30 % = 3431501174) LYMPH % (test code = 34.6 % 736-9) MONO % (test code = 12.0 % 5905-5) EOS % (test code = 3.3 % 713-8) BASO % (test code = 0.5 % 706-2) GRAN MAT x10^3(ANC) 1.97 10*3/uL 1.99-6.95 L (test code = 6657834161) IMM GRAN x10^3 (test <0.03 0.00-0.06 code = 5571814456) LYMPH x10^3 (test code 1.38 10*3/uL 1.09-3.23 = 731-0) MONO x10^3 (test code 0.48 10*3/uL 0.36-1.02 = 742-7) EOS x10^3 (test code = 0.13 10*3/uL 0.06-0.53 711-2) BASO x10^3 (test code <0.03 0.01-0.09 = 704-7) Lab Interpretation Abnormal (test code = 49900-8) [facility] METABOLIC PANEL (NA, K, CL, CO2, GLUCOSE, BUN, CREATININE, CA)2021-08-03 11:18:55 Test Item Value Reference Range Interpretation Comments NA (test code = 139 mmol/L 135-145 0083429110) K (test code = 4.1 mmol/L 3.5-5.0 9049999160) CL (test code = 110 mmol/L 98-108 H 4843870926) CO2 TOTAL (test code = 27 mmol/L 23-31 5201546358) AGAP (test code = 2-16 3708971235) BUN (test code = 8 mg/dL 7-23 2201263014) GLUCOSE (test code = 93 mg/dL 70-110 2301685673) CREATININE (test code = 1.39 mg/dL 0.60-1.25 H 7670516610) CALCIUM (test code = 8.1 mg/dL 8.6-10.6 L 4391451416) eGFR (test code = mL/min/1.73m2 5168683980) GILBERTO (test code = GILBERTO) Association of Glomerular Filtration Rate (GFR) and Staging of Kidney Disease* + --+ --+ ------+| GFR (mL/min/1.73 m2) ?| With Kidney Damage ?| ?Without Kidney Damage+ --------+ --------+ +| ?>90 ?| ?Stage one ?| ? Normal ?+ ---+ ---+ -------+| ?60-89 ?| ?Stage two ?| ? Decreased GFR ? + --+ --+ ------+| ?30-59 ?| ?Stage three ?| ? Stage three ? + --+ --+ ------+| ?15-29 ?| ?Stage four ? | ? Stage four ?+ ---+ ---+ -------+| ?<15 (or dialysis) ? ?| ?Stage five ? | ? Stage five ?+ ---+ ---+ -------+ *Each stage assumes the associated GFR level has been in effect for at least three months. ?Stages 1 to 5, with or without kidney disease, indicate chronic kidney disease. Notes: Determination of stages one and two (with eGFR >59mL/min/1.73 m2) requires estimation of kidney damage for at least three months as defined by structural or functional abnormalities of the kidney, manifested by either:Pathological abnormalities or Markers of kidney damage (including abnormalities in the composition of the blood or urine or abnormalities in imaging tests). Lab Interpretation Abnormal (test code = 56356-6) [facility] 11:18:55 Test Item Value Reference Range Interpretation Comments MAGNESIUM (test code = 4056060988) 2.0 mg/dL 1.7-2.4 Lab Interpretation (test code = Normal 70689-5) [facility] 11:18:55 Test Item Value Reference Range Interpretation Comments PHOSPHORUS (test code = 3690830539) 3.8 mg/dL 2.5-5.0 Lab Interpretation (test code = Normal 48594-0) [facility] (NA, K, CL, CO2, GLUCOSE, BUN, CREATININE, CA)2021-08-02 14:06:51 Test Item Value Reference Range Interpretation Comments NA (test code = 137 mmol/L 135-145 9312958840) K (test code = 4.4 mmol/L 3.5-5.0 7979598106) CL (test code = 108 mmol/L 98-108 4145337927) CO2 TOTAL (test code = 24 mmol/L 23-31 9092029090) AGAP (test code = 2-16 2759945162) BUN (test code = 10 mg/dL 7-23 2046188149) GLUCOSE (test code = 83 mg/dL 70-110 1248135823) CREATININE (test code = 1.48 mg/dL 0.60-1.25 H 5625062166) CALCIUM (test code = 8.4 mg/dL 8.6-10.6 L 2074327651) eGFR (test code = mL/min/1.73m2 6128362800) GILBERTO (test code = GILBERTO) Association of Glomerular Filtration Rate (GFR) and Staging of Kidney Disease* + --+ --+ ------+| GFR (mL/min/1.73 m2) ?| With Kidney Damage ?| ?Without Kidney Damage+ --------+ --------+ +| ?>90 ?| ?Stage one ?| ? Normal ?+ ---+ ---+ -------+| ?60-89 ?| ?Stage two ?| ? Decreased GFR ? + --+ --+ ------+| ?30-59 ?| ?Stage three ?| ? Stage three ? + --+ --+ ------+| ?15-29 ?| ?Stage four ? | ? Stage four ?+ ---+ ---+ -------+| ?<15 (or dialysis) ? ?| ?Stage five ? | ? Stage five ?+ ---+ ---+ -------+ *Each stage assumes the associated GFR level has been in effect for at least three months. ?Stages 1 to 5, with or without kidney disease, indicate chronic kidney disease. Notes: Determination of stages one and two (with eGFR >59mL/min/1.73 m2) requires estimation of kidney damage for at least three months as defined by structural or functional abnormalities of the kidney, manifested by either:Pathological abnormalities or Markers of kidney damage (including abnormalities in the composition of the blood or urine or abnormalities in imaging tests). Lab Interpretation Abnormal (test code = 46927-2) [facility] 14:06:51 Test Item Value Reference Range Interpretation Comments MAGNESIUM (test code = 7748992486) 2.1 mg/dL 1.7-2.4 Lab Interpretation (test code = Normal 00795-1) [facility] 14:06:51 Test Item Value Reference Range Interpretation Comments PHOSPHORUS (test code = 1968387524) 4.6 mg/dL 2.5-5.0 Lab Interpretation (test code = Normal 41259-3) [facility] [id number] 12:30:05 Test Item Value Reference Range Interpretation Comments WBC (test code = See_Comment L [Automated 6690-2) message] The sy stem which generated this result transmitted reference range : 4.20 - 10.70 10*3/?L. The reference range was not used to interpret this result as normal/abnormal . RBC (test code = See_Comment L [Automated 789-8) message] The sy stem which generated this result transmitted reference range : 4.26 - 5.52 10*6/?L. The reference range was not used to interpret this result as normal/abnormal . HGB (test code = 10.6 g/dL 12.2-16.4 L 718-7) HCT (test code = 33.5 % 38.4-49.3 L 4544-3) MCV (test code = 93.8 fL 81.7-95.6 787-2) MCH (test code = 29.7 pg 26.1-32.7 785-6) MCHC (test code = 31.6 g/dL 31.2-35.0 786-4) RDW-SD (test code = 48.6 fL 38.5-51.6 17411-2) RDW-CV (test code = 14.3 % 12.1-15.4 788-0) PLT (test code = See_Comment [Automated 777-3) message] The sy stem which generated this result transmitted reference range : 150 - 328 10*3/ ?L. The reference r meredith was not used to interpret this result as normal/abnormal . MPV (test code = 10.0 fL 9.8-13.0 91613-2) NRBC/100 WBC (test See_Comment [Automat ed code = 4317486150) message] The system which generated this result transmitted reference range : 0.0 - 10.0 /100 WBCs. The refer ence range was not u sed to interpret th is result as normal/abnormal . NRBC x10^3 (test code <0.01 See_Comment [Auto mated = 8830871009) message] The s ystem which generated this result transmitted reference range : 10*3/?L. The reference range was not used to interpret this result as normal/abnormal . GRAN MAT (NEUT) % 51.9 % (test code = 770-8) IMM GRAN % (test code 0.60 % = 0966430975) LYMPH % (test code = 32.7 % 736-9) MONO % (test code = 11.3 % 5905-5) EOS % (test code = 3.2 % 713-8) BASO % (test code = 0.3 % 706-2) GRAN MAT x10^3(ANC) 1.80 10*3/uL 1.99-6.95 L (test code = 4843312225) IMM GRAN x10^3 (test <0.03 0.00-0.06 code = 8422963850) LYMPH x10^3 (test code 1.13 10*3/uL 1.09-3.23 = 731-0) MONO x10^3 (test code 0.39 10*3/uL 0.36-1.02 = 742-7) EOS x10^3 (test code = 0.11 10*3/uL 0.06-0.53 711-2) BASO x10^3 (test code <0.03 0.01-0.09 = 704-7) Lab Interpretation Abnormal (test code = 72507-6) [facility] WITH [id number] 10:44:18 Test Item Value Reference Range Interpretation Comments WBC (test code = See_Comment L [Automated 6690-2) message] The sy stem which generated this result transmitted reference range : 4.20 - 10.70 10*3/?L. The reference range was not used to interpret this result as normal/abnormal . RBC (test code = See_Comment L [Automated 789-8) message] The sy stem which generated this result transmitted reference range : 4.26 - 5.52 10*6/?L. The reference range was not used to interpret this result as normal/abnormal . HGB (test code = 10.2 g/dL 12.2-16.4 L 718-7) HCT (test code = 30.8 % 38.4-49.3 L 4544-3) MCV (test code = 91.9 fL 81.7-95.6 787-2) MCH (test code = 30.4 pg 26.1-32.7 785-6) MCHC (test code = 33.1 g/dL 31.2-35.0 786-4) RDW-SD (test code = 48.0 fL 38.5-51.6 31639-3) RDW-CV (test code = 14.1 % 12.1-15.4 788-0) PLT (test code = See_Comment [Automated 777-3) message] The sy stem which generated this result transmitted reference range : 150 - 328 10*3/ ?L. The reference r meredith was not used to interpret this result as normal/abnormal . MPV (test code = 9.5 fL 9.8-13.0 L 24161-6) NRBC/100 WBC (test See_Comment [Automat ed code = 2981816810) message] The system which generated this result transmitted reference range : 0.0 - 10.0 /100 WBCs. The refer ence range was not u sed to interpret th is result as normal/abnormal . NRBC x10^3 (test code <0.01 See_Comment [Auto mated = 2914977024) message] The s ystem which generated this result transmitted reference range : 10*3/?L. The reference range was not used to interpret this result as normal/abnormal . GRAN MAT (NEUT) % 50.8 % (test code = 770-8) IMM GRAN % (test code 0.30 % = 6224400594) LYMPH % (test code = 34.6 % 736-9) MONO % (test code = 10.3 % 5905-5) EOS % (test code = 3.7 % 713-8) BASO % (test code = 0.3 % 706-2) GRAN MAT x10^3(ANC) 1.78 10*3/uL 1.99-6.95 L (test code = 8607768997) IMM GRAN x10^3 (test <0.03 0.00-0.06 code = 5223304624) LYMPH x10^3 (test code 1.21 10*3/uL 1.09-3.23 = 731-0) MONO x10^3 (test code 0.36 10*3/uL 0.36-1.02 = 742-7) EOS x10^3 (test code = 0.13 10*3/uL 0.06-0.53 711-2) BASO x10^3 (test code <0.03 0.01-0.09 = 704-7) Lab Interpretation Abnormal (test code = 90645-4) [facility] METABOLIC PANEL (NA, K, CL, CO2, GLUCOSE, BUN, CREATININE, CA)2021-08-01 10:25:17 Test Item Value Reference Range Interpretation Comments NA (test code = 138 mmol/L 135-145 9445510404) K (test code = 4.1 mmol/L 3.5-5.0 5563594952) CL (test code = 105 mmol/L 98-108 6990578088) CO2 TOTAL (test code = 28 mmol/L 23-31 9822302295) AGAP (test code = 2-16 4037496317) BUN (test code = 13 mg/dL 7-23 9426759207) GLUCOSE (test code = 86 mg/dL 70-110 3913369260) CREATININE (test code = 1.46 mg/dL 0.60-1.25 H 3956907902) CALCIUM (test code = 8.7 mg/dL 8.6-10.6 7483458861) eGFR (test code = mL/min/1.73m2 3763662965) GILBERTO (test code = GILBERTO) Association of Glomerular Filtration Rate (GFR) and Staging of Kidney Disease* + --+ --+ ------+| GFR (mL/min/1.73 m2) ?| With Kidney Damage ?| ?Without Kidney Damage+ --------+ --------+ +| ?>90 ?| ?Stage one ?| ? Normal ?+ ---+ ---+ -------+| ?60-89 ?| ?Stage two ?| ? Decreased GFR ? + --+ --+ ------+| ?30-59 ?| ?Stage three ?| ? Stage three ? + --+ --+ ------+| ?15-29 ?| ?Stage four ? | ? Stage four ?+ ---+ ---+ -------+| ?<15 (or dialysis) ? ?| ?Stage five ? | ? Stage five ?+ ---+ ---+ -------+ *Each stage assumes the associated GFR level has been in effect for at least three months. ?Stages 1 to 5, with or without kidney disease, indicate chronic kidney disease. Notes: Determination of stages one and two (with eGFR >59mL/min/1.73 m2) requires estimation of kidney damage for at least three months as defined by structural or functional abnormalities of the kidney, manifested by either:Pathological abnormalities or Markers of kidney damage (including abnormalities in the composition of the blood or urine or abnormalities in imaging tests). Lab Interpretation Abnormal (test code = 60435-9) [facility] 10:25:17 Test Item Value Reference Range Interpretation Comments MAGNESIUM (test code = 2410627109) 1.6 mg/dL 1.7-2.4 L Lab Interpretation (test code = Abnormal 20007-2) [facility] 10:25:17 Test Item Value Reference Range Interpretation Comments PHOSPHORUS (test code = 5408584525) 4.1 mg/dL 2.5-5.0 Lab Interpretation (test code = Normal 23726-1) [facility] 16:18:34 Test Item Value Reference Range Interpretation Comments PALB (test code = 42841-7) 24.3 mg/dL 18.0-45.0 Lab Interpretation (test code = Normal 23902-0) [facility] WITH [id number] 11:20:19 Test Item Value Reference Range Interpretation Comments WBC (test code = See_Comment L [Automated 6690-2) message] The sy stem which generated this result transmitted reference range : 4.20 - 10.70 10*3/?L. The reference range was not used to interpret this result as normal/abnormal . RBC (test code = See_Comment L [Automated 789-8) message] The sy stem which generated this result transmitted reference range : 4.26 - 5.52 10*6/?L. The reference range was not used to interpret this result as normal/abnormal . HGB (test code = 10.5 g/dL 12.2-16.4 L 718-7) HCT (test code = 32.8 % 38.4-49.3 L 4544-3) MCV (test code = 93.2 fL 81.7-95.6 787-2) MCH (test code = 29.8 pg 26.1-32.7 785-6) MCHC (test code = 32.0 g/dL 31.2-35.0 786-4) RDW-SD (test code = 49.6 fL 38.5-51.6 92456-3) RDW-CV (test code = 14.6 % 12.1-15.4 788-0) PLT (test code = See_Comment [Automated 777-3) message] The sy stem which generated this result transmitted reference range : 150 - 328 10*3/ ?L. The reference r meredith was not used to interpret this result as normal/abnormal . MPV (test code = 9.6 fL 9.8-13.0 L 75079-1) NRBC/100 WBC (test See_Comment [Automat ed code = 5953141831) message] The system which generated this result transmitted reference range : 0.0 - 10.0 /100 WBCs. The refer ence range was not u sed to interpret th is result as normal/abnormal . NRBC x10^3 (test code <0.01 See_Comment [Auto mated = 4102230166) message] The s ystem which generated this result transmitted reference range : 10*3/?L. The reference range was not used to interpret this result as normal/abnormal . GRAN MAT (NEUT) % 49.1 % (test code = 770-8) IMM GRAN % (test code 0.30 % = 9731581586) LYMPH % (test code = 36.0 % 736-9) MONO % (test code = 10.6 % 5905-5) EOS % (test code = 3.4 % 713-8) BASO % (test code = 0.6 % 706-2) GRAN MAT x10^3(ANC) 1.76 10*3/uL 1.99-6.95 L (test code = 4943327965) IMM GRAN x10^3 (test <0.03 0.00-0.06 code = 1065223356) LYMPH x10^3 (test code 1.29 10*3/uL 1.09-3.23 = 731-0) MONO x10^3 (test code 0.38 10*3/uL 0.36-1.02 = 742-7) EOS x10^3 (test code = 0.12 10*3/uL 0.06-0.53 711-2) BASO x10^3 (test code <0.03 0.01-0.09 = 704-7) Lab Interpretation Abnormal (test code = 12302-9) [facility] METABOLIC PANEL (NA, K, CL, CO2, GLUCOSE, BUN, CREATININE, CA)2021-07-31 11:11:17 Test Item Value Reference Range Interpretation Comments NA (test code = 135 mmol/L 135-145 0293817695) K (test code = 3.8 mmol/L 3.5-5.0 5868570394) CL (test code = 108 mmol/L 98-108 9379785357) CO2 TOTAL (test code = 24 mmol/L 23-31 2042826851) AGAP (test code = 2-16 2468026085) BUN (test code = 13 mg/dL 7-23 1411441652) GLUCOSE (test code = 88 mg/dL 70-110 7186763242) CREATININE (test code = 1.32 mg/dL 0.60-1.25 H 6158880269) CALCIUM (test code = 8.4 mg/dL 8.6-10.6 L 1918678683) eGFR (test code = mL/min/1.73m2 3893788758) GILBERTO (test code = GILBERTO) Association of Glomerular Filtration Rate (GFR) and Staging of Kidney Disease* + --+ --+ ------+| GFR (mL/min/1.73 m2) ?| With Kidney Damage ?| ?Without Kidney Damage+ --------+ --------+ +| ?>90 ?| ?Stage one ?| ? Normal ?+ ---+ ---+ -------+| ?60-89 ?| ?Stage two ?| ? Decreased GFR ? + --+ --+ ------+| ?30-59 ?| ?Stage three ?| ? Stage three ? + --+ --+ ------+| ?15-29 ?| ?Stage four ? | ? Stage four ?+ ---+ ---+ -------+| ?<15 (or dialysis) ? ?| ?Stage five ? | ? Stage five ?+ ---+ ---+ -------+ *Each stage assumes the associated GFR level has been in effect for at least three months. ?Stages 1 to 5, with or without kidney disease, indicate chronic kidney disease. Notes: Determination of stages one and two (with eGFR >59mL/min/1.73 m2) requires estimation of kidney damage for at least three months as defined by structural or functional abnormalities of the kidney, manifested by either:Pathological abnormalities or Markers of kidney damage (including abnormalities in the composition of the blood or urine or abnormalities in imaging tests). Lab Interpretation Abnormal (test code = 12206-9) [facility] Test Item Value Reference Range Interpretation Comments MAGNESIUM (test code = 4627529015) 1.8 mg/dL 1.7-2.4 Lab Interpretation (test code = Normal 57039-8) [facility]:11:17 Test Item Value Reference Range Interpretation Comments PHOSPHORUS (test code = 0950277745) 4.0 mg/dL 2.5-5.0 Lab Interpretation (test code = Normal 76311-7) [facility]. METABOLIC PANEL ([id number])2021-07-30 03:46:32 Test Item Value Reference Range Interpretation Comments NA (test code = 132 mmol/L 135-145 L 9683801786) K (test code = 4.4 mmol/L 3.5-5.0 5486602924) CL (test code = 102 mmol/L 98-108 9899290573) CO2 TOTAL (test code = 24 mmol/L 23-31 7974406519) AGAP (test code = 2-16 3504701631) BUN (test code = 21 mg/dL 7-23 4834499767) GLUCOSE (test code = 95 mg/dL 70-110 3510903322) CREATININE (test code = 1.76 mg/dL 0.60-1.25 H 2986445072) TOTAL BILI (test code = 0.7 mg/dL 0.1-1.2 1800236677) CALCIUM (test code = 8.8 mg/dL 8.6-10.6 4442489730) T PROTEIN (test code = 6.0 g/dL 6.3-8.2 L 8853404179) ALBUMIN (test code = 3.8 g/dL 3.5-5.0 9406491589) ALK PHOS (test code = 67 U/L 34-122 7985860638) ALTv (test code = 47 U/L 5-50 1742-6) AST(SGOT) (test code = 39 U/L 13-40 9296295090) eGFR (test code = mL/min/1.73m2 0445434783) GILBERTO (test code = GILBERTO) Association of Glomerular Filtration Rate (GFR) and Staging of Kidney Disease* + --+ --+ ------+| GFR (mL/min/1.73 m2) ?| With Kidney Damage ?| ?Without Kidney Damage+ --------+ --------+ +| ?>90 ?| ?Stage one ?| ? Normal ?+ ---+ ---+ -------+| ?60-89 ?| ?Stage two ?| ? Decreased GFR ? + --+ --+ ------+| ?30-59 ?| ?Stage three ?| ? Stage three ? + --+ --+ ------+| ?15-29 ?| ?Stage four ? | ? Stage four ?+ ---+ ---+ -------+| ?<15 (or dialysis) ? ?| ?Stage five ? | ? Stage five ?+ ---+ ---+ -------+ *Each stage assumes the associated GFR level has been in effect for at least three months. ?Stages 1 to 5, with or without kidney disease, indicate chronic kidney disease. Notes: Determination of stages one and two (with eGFR >59mL/min/1.73 m2) requires estimation of kidney damage for at least three months as defined by structural or functional abnormalities of the kidney, manifested by either:Pathological abnormalities or Markers of kidney damage (including abnormalities in the composition of the blood or urine or abnormalities in imaging tests). Lab Interpretation Abnormal (test code = 71934-0) [facility] Test Item Value Reference Range Interpretation Comments LIPASE (test code = 8996488561) 58 U/L 0-220 Lab Interpretation (test code = Normal 12504-7) [facility] WITH [id number] 03:07:20 Test Item Value Reference Range Interpretation Comments WBC (test code = See_Comment [Automated 6690-2) message] The sy stem which generated this result transmitted reference range : 4.20 - 10.70 10*3/?L. The reference range was not used to interpret this result as normal/abnormal . RBC (test code = See_Comment L [Automated 739-8) message] The sy stem which generated this result transmitted reference range : 4.26 - 5.52 10*6/?L. The reference range was not used to interpret this result as normal/abnormal . HGB (test code = 10.8 g/dL 12.2-16.4 L 718-7) HCT (test code = 32.2 % 38.4-49.3 L 4544-3) MCV (test code = 90.7 fL 81.7-95.6 787-2) MCH (test code = 30.4 pg 26.1-32.7 785-6) MCHC (test code = 33.5 g/dL 31.2-35.0 786-4) RDW-SD (test code = 47.4 fL 38.5-51.6 12722-1) RDW-CV (test code = 14.2 % 12.1-15.4 788-0) PLT (test code = See_Comment [Automated 777-3) message] The sy stem which generated this result transmitted reference range : 150 - 328 10*3/ ?L. The reference r meredith was not used to interpret this result as normal/abnormal . MPV (test code = 9.9 fL 9.8-13.0 94858-3) NRBC/100 WBC (test See_Comment [Automat ed code = 1345428214) message] The system which generated this result transmitted reference range : 0.0 - 10.0 /100 WBCs. The refer ence range was not u sed to interpret th is result as normal/abnormal . NRBC x10^3 (test code <0.01 See_Comment [Auto mated = 0179072772) message] The s ystem which generated this result transmitted reference range : 10*3/?L. The reference range was not used to interpret this result as normal/abnormal . GRAN MAT (NEUT) % 61.1 % (test code = 770-8) IMM GRAN % (test code 0.20 % = 4599701208) LYMPH % (test code = 24.4 % 736-9) MONO % (test code = 11.8 % 5905-5) EOS % (test code = 2.2 % 713-8) BASO % (test code = 0.3 % 706-2) GRAN MAT x10^3(ANC) 3.98 10*3/uL 1.99-6.95 (test code = 6384833343) IMM GRAN x10^3 (test <0.03 0.00-0.06 code = 6964016765) LYMPH x10^3 (test code 1.59 10*3/uL 1.09-3.23 = 731-0) MONO x10^3 (test code 0.77 10*3/uL 0.36-1.02 = 742-7) EOS x10^3 (test code = 0.14 10*3/uL 0.06-0.53 711-2) BASO x10^3 (test code <0.03 0.01-0.09 = 704-7) Lab Interpretation Abnormal (test code = 78023-7) [facility] CenterL[facility] Whole [id number] 03:00:47 Test Item Value Reference Range Interpretation Comments LACTIC ACID (test code = 1.45 mmol/L 0.50-2.20 QUE S [id number]) Lab Interpretation (test code = Normal 72037-4) [facility] Center[facility]PRE[facility] METABOLIC [id number] 11:51:00 Test Item Value Reference Range Interpretation Comments SODIUM (test code = NA) 136 mmol/l 134.0-147.0 N POTASSIUM (test code = K) 3.7 mmol/L 3.6-5.2 N CHLORIDE (test code = CL) 102 mmol/l 98.0-107.0 N CARBON DIOXIDE (test code = CO2) 26.3 mmol/l 21.0-33.0 N ANION GAP (test code = GAP) 11.4 0-20 N GLUCOSE (test code = GLU) 99 mg/dl 70.0-110.0 N BLOOD UREA NITROGEN (test code = 10 mg/dl 7.0-18.0 N BUN) CREATININE (test code = CREAT) 1.70 mg/dL 0.60-1.30 H GFR NON BLACK (test code = 45 mL/min 90-95 L GFRNONBLACK) GFR BLACK (test code = GFRBLACK) 55 mL/min 109-115 L TOTAL PROTEIN (test code = PROT) 6.4 GM/DL 6.0-8.1 N ALBUMIN (test code = ALB) 3.5 gm/dL 3.2-4.7 N CALCIUM (test code = CA) 9.2 mg/dl 8.0-10.5 N BILIRUBIN TOTAL (test code = 0.5 mg/dl 0.0-1.0 N BILT) SGOT/AST (test code = AST) 48 Units/L 15-37 H SGPT/ALT (test code = ALT) 54 Units/L 12.0-78.0 N ALKALINE PHOSPHATASE TOTAL (test 74 Units/L 50.0-136.0 N code = ALKP) PROTHROMBIN [id number] 11:41:00 Test Item Value Reference Range Interpretation Comments PROTHROMBIN TIME 10.9 SECONDS 9.9-12.8 N PATIENT (test code = PTP) INTERNATIONAL NORMAL 0.9 0.89-1.14 N THE INR IS TO BE USED RATIO (test code = ONLY FOR MONITORING INR) ORAL ANTICOAGULANTTH ERAPY. THE FOLLOWING A RE SUGGESTED RANGE S [facility] OF CHEST PHYSICIANS:ROOPA CATION INR VALUEPROPHY LAXIS OF VENOUS THROM BOSIS (ORTHOPEDIC PAKO BOB) 2.0 - 3.0PROPHY LAXIS OF VENOUS THROM BOSIS (OTHER THAN HIG H-RISK SURGERY) 2.0 - 3.0TREATMENT OF DEEP VEIN THROMBOSIS OR PULMONARY EMBOL ISM 2.0 - 3.0PREVENTION OF SYSTEMIC EMBOLI SM TISSUE HEART VA LVES 2.0 - 3.0 ACUTE MYOCARDIAL INFA RCTION (TO PREVENT SYS TEMIC EMBOLISM) 2.0 - 3.0 ACUTE MYOCARDIA L INFARCTION (TO PREVENT RECURRENT INFAR CT) 2.5 - 3.0 VALVULAR HEART DISEASE 2.0 - 3 .0 ATRIAL FIBRILAT ION 2.0 - 3.0BILEAFLET MECHANICAL VALV E IN AORTIC POSITION 2.0 - 3.0MECHANICAL PROSTHETIC VALV ES (HIGH RISK) 2.5 - 3.5PRESENCE OF LUPUS ANTICOAGULANT O R ANTIPHOSPHOLIPI D ANTIBODIES 2.5 - 3.5 CBC W/AUTO [id number] 11:36:00 Test Item Value Reference Range Interpretation Comments WHITE BLOOD CELL (test code = 7.5 K/mm3 4.5-11.0 N WBC) RED BLOOD CELL (test code = 3.79 M/mm3 4.40-5.90 L RBC) HEMOGLOBIN (test code = HGB) 11.3 gm/dL 13.0-17.0 L HEMATOCRIT (test code = HCT) 35.3 % 36.0-48.0 L MEAN CELL VOLUME (test code = 93.1 UM3 80.0-94.0 N MCV) MEAN CELL HGB (test code = MCH) 29.8 UUG 25.5-32.5 N MEAN CELL HGB CONCETRATION 32.0 gm/dL 29.0-35.5 N (test code = MCHC) RED CELL DISTRIBUTION WIDTH 14.3 % 11.5-15.0 N (test code = RDW) RED CELL DISTRIBUTION WIDTH SD 48.5 fL 34.8-50.2 N (test code = RDW-SD) PLATELET COUNT (test code = 247 K/mm3 150-400 N PLT) MEAN PLATELET VOLUME (test code 9.5 fl 7.4-10.4 N = MPV) NEUTROPHIL % (test code = NT%) 72.8 % 49.0-76.0 N IMMATURE GRANULOCYTE % (test 0.4 % 0.0-0.4 N code = IG%) LYMPHOCYTE % (test code = LY%) 16.4 % 23.0-38.0 L MONOCYTE % (test code = MO%) 9.5 % 1.0-10.0 N EOSINOPHIL % (test code = EO%) 0.5 % 1.0-5.0 L BASOPHIL % (test code = BA%) 0.4 % 0.0-1.0 N NUCLEATED RBC % (test code = 0.0 % 0.0-0.1 N NRBC%) NEUTROPHIL # (test code = NT#) 5.5 K/mm3 2.4-6.3 N IMMATURE GRANULOCYTE # (test 0.03 x10 3/uL 0.00-0.07 N code = IG#) LYMPHOCYTE # (test code = LY#) 1.2 K/mm3 1.2-4.0 N MONOCYTE # (test code = MO#) 0.7 K/mm3 0.0-0.6 H EOSINOPHIL # (test code = EO#) 0.0 K/MM3 0.0-0.7 N BASOPHIL # (test code = BA#) 0.0 K/mm3 0.0-0.2 N NUCLEATED RBC # (test code = 0.00 X10 3uL 0.00-0.01 N NRBC#) BASIC METABOLIC PANEL (NA, K, CL, CO2, GLUCOSE, BUN, CREATININE, CA)2021-07-26 13:15:26 Test Item Value Reference Range Interpretation Comments NA (test code = 137 mmol/L 135-145 9523129612) K (test code = 4.2 mmol/L 3.5-5.0 9949780247) CL (test code = 109 mmol/L 98-108 H 3091579233) CO2 TOTAL (test code = 25 mmol/L 23-31 1869932851) AGAP (test code = 2-16 6558871393) BUN (test code = 11 mg/dL 7-23 1400041781) GLUCOSE (test code = 83 mg/dL 70-110 0331607247) CREATININE (test code = 1.40 mg/dL 0.60-1.25 H 8382153394) CALCIUM (test code = 8.6 mg/dL 8.6-10.6 7774088803) eGFR (test code = mL/min/1.73m2 4330737503) GILBERTO (test code = GILBERTO) Association of Glomerular Filtration Rate (GFR) and Staging of Kidney Disease* + --+ --+ ------+| GFR (mL/min/1.73 m2) ?| With Kidney Damage ?| ?Without Kidney Damage+ --------+ --------+ +| ?>90 ?| ?Stage one ?| ? Normal ?+ ---+ ---+ -------+| ?60-89 ?| ?Stage two ?| ? Decreased GFR ? + --+ --+ ------+| ?30-59 ?| ?Stage three ?| ? Stage three ? + --+ --+ ------+| ?15-29 ?| ?Stage four ? | ? Stage four ?+ ---+ ---+ -------+| ?<15 (or dialysis) ? ?| ?Stage five ? | ? Stage five ?+ ---+ ---+ -------+ *Each stage assumes the associated GFR level has been in effect for at least three months. ?Stages 1 to 5, with or without kidney disease, indicate chronic kidney disease. Notes: Determination of stages one and two (with eGFR >59mL/min/1.73 m2) requires estimation of kidney damage for at least three months as defined by structural or functional abnormalities of the kidney, manifested by either:Pathological abnormalities or Markers of kidney damage (including abnormalities in the composition of the blood or urine or abnormalities in imaging tests). Lab Interpretation Abnormal (test code = 79646-2) [facility] 13:15:26 Test Item Value Reference Range Interpretation Comments MAGNESIUM (test code = 9898939266) 1.6 mg/dL 1.7-2.4 L Lab Interpretation (test code = Abnormal 82227-8) [facility] 13:15:26 Test Item Value Reference Range Interpretation Comments PHOSPHORUS (test code = 6186004955) 3.5 mg/dL 2.5-5.0 Lab Interpretation (test code = Normal 09976-9) [facility] WITH [id number] 12:50:41 Test Item Value Reference Range Interpretation Comments WBC (test code = See_Comment [Automated 6690-2) message] The sy stem which generated this result transmitted reference range : 4.20 - 10.70 10*3/?L. The reference range was not used to interpret this result as normal/abnormal . RBC (test code = See_Comment L [Automated 789-8) message] The sy stem which generated this result transmitted reference range : 4.26 - 5.52 10*6/?L. The reference range was not used to interpret this result as normal/abnormal . HGB (test code = 11.1 g/dL 12.2-16.4 L 718-7) HCT (test code = 32.9 % 38.4-49.3 L 4544-3) MCV (test code = 89.4 fL 81.7-95.6 787-2) MCH (test code = 30.2 pg 26.1-32.7 785-6) MCHC (test code = 33.7 g/dL 31.2-35.0 786-4) RDW-SD (test code = 46.7 fL 38.5-51.6 96381-3) RDW-CV (test code = 14.3 % 12.1-15.4 788-0) PLT (test code = See_Comment [Automated 777-3) message] The sy stem which generated this result transmitted reference range : 150 - 328 10*3/ ?L. The reference r meredith was not used to interpret this result as normal/abnormal . MPV (test code = 9.6 fL 9.8-13.0 L 01021-8) NRBC/100 WBC (test See_Comment [Automat ed code = 0414825441) message] The system which generated this result transmitted reference range : 0.0 - 10.0 /100 WBCs. The refer ence range was not u sed to interpret th is result as normal/abnormal . NRBC x10^3 (test code <0.01 See_Comment [Auto mated = 3651471585) message] The s ystem which generated this result transmitted reference range : 10*3/?L. The reference range was not used to interpret this result as normal/abnormal . GRAN MAT (NEUT) % 52.7 % (test code = 770-8) IMM GRAN % (test code 0.40 % = 4008161118) LYMPH % (test code = 33.7 % 736-9) MONO % (test code = 10.4 % 5905-5) EOS % (test code = 2.4 % 713-8) BASO % (test code = 0.4 % 706-2) GRAN MAT x10^3(ANC) 2.65 10*3/uL 1.99-6.95 (test code = 0101580029) IMM GRAN x10^3 (test <0.03 0.00-0.06 code = 0896692081) LYMPH x10^3 (test code 1.69 10*3/uL 1.09-3.23 = 731-0) MONO x10^3 (test code 0.52 10*3/uL 0.36-1.02 = 742-7) EOS x10^3 (test code = 0.12 10*3/uL 0.06-0.53 711-2) BASO x10^3 (test code <0.03 0.01-0.09 = 704-7) Lab Interpretation Abnormal (test code = 90398-8) [facility] 12:35:59 Test Item Value Reference Range Interpretation Comments MAGNESIUM (test code = 5664667395) 1.6 mg/dL 1.7-2.4 L Lab Interpretation (test code = Abnormal 83033-8) [facility] 12:35:59 Test Item Value Reference Range Interpretation Comments PHOSPHORUS (test code = 8667871095) 4.0 mg/dL 2.5-5.0 Lab Interpretation (test code = Normal 69153-2) [facility]OL[facility] PAN[facility] (NA, K, CL, CO2, GLUCOSE, BUN, CREATININE, CA)2021-07-25 12:09:12 Test Item Value Reference Range Interpretation Comments NA (test code = 139 mmol/L 135-145 8618922834) K (test code = 4.1 mmol/L 3.5-5.0 9326944452) CL (test code = 111 mmol/L 98-108 H 9740489298) CO2 TOTAL (test code = 25 mmol/L 23-31 7033918342) AGAP (test code = 2-16 0639328802) BUN (test code = 13 mg/dL 7-23 4289792132) GLUCOSE (test code = 86 mg/dL 70-110 0313948122) CREATININE (test code = 1.43 mg/dL 0.60-1.25 H 0754413645) CALCIUM (test code = 8.4 mg/dL 8.6-10.6 L 5462571404) eGFR (test code = mL/min/1.73m2 2384765797) GILBERTO (test code = GILBERTO) Association of Glomerular Filtration Rate (GFR) and Staging of Kidney Disease* + --+ --+ ------+| GFR (mL/min/1.73 m2) ?| With Kidney Damage ?| ?Without Kidney Damage+ --------+ --------+ +| ?>90 ?| ?Stage one ?| ? Normal ?+ ---+ ---+ -------+| ?60-89 ?| ?Stage two ?| ? Decreased GFR ? + --+ --+ ------+| ?30-59 ?| ?Stage three ?| ? Stage three ? + --+ --+ ------+| ?15-29 ?| ?Stage four ? | ? Stage four ?+ ---+ ---+ -------+| ?<15 (or dialysis) ? ?| ?Stage five ? | ? Stage five ?+ ---+ ---+ -------+ *Each stage assumes the associated GFR level has been in effect for at least three months. ?Stages 1 to 5, with or without kidney disease, indicate chronic kidney disease. Notes: Determination of stages one and two (with eGFR >59mL/min/1.73 m2) requires estimation of kidney damage for at least three months as defined by structural or functional abnormalities of the kidney, manifested by either:Pathological abnormalities or Markers of kidney damage (including abnormalities in the composition of the blood or urine or abnormalities in imaging tests). Lab Interpretation Abnormal (test code = 39931-5) [facility] WITH [id number] 11:44:33 Test Item Value Reference Range Interpretation Comments WBC (test code = See_Comment [Automated 6690-2) message] The sy stem which generated this result transmitted reference range : 4.20 - 10.70 10*3/?L. The reference range was not used to interpret this result as normal/abnormal . RBC (test code = See_Comment L [Automated 789-8) message] The sy stem which generated this result transmitted reference range : 4.26 - 5.52 10*6/?L. The reference range was not used to interpret this result as normal/abnormal . HGB (test code = 10.9 g/dL 12.2-16.4 L 718-7) HCT (test code = 33.2 % 38.4-49.3 L 4544-3) MCV (test code = 92.2 fL 81.7-95.6 787-2) MCH (test code = 30.3 pg 26.1-32.7 785-6) MCHC (test code = 32.8 g/dL 31.2-35.0 786-4) RDW-SD (test code = 48.9 fL 38.5-51.6 50784-0) RDW-CV (test code = 14.3 % 12.1-15.4 788-0) PLT (test code = See_Comment [Automated 777-3) message] The sy stem which generated this result transmitted reference range : 150 - 328 10*3/ ?L. The reference r meredith was not used to interpret this result as normal/abnormal . MPV (test code = 9.6 fL 9.8-13.0 L 04350-6) NRBC/100 WBC (test See_Comment [Automat ed code = 0627770015) message] The system which generated this result transmitted reference range : 0.0 - 10.0 /100 WBCs. The refer ence range was not u sed to interpret th is result as normal/abnormal . NRBC x10^3 (test code <0.01 See_Comment [Auto mated = 2132516380) message] The s ystem which generated this result transmitted reference range : 10*3/?L. The reference range was not used to interpret this result as normal/abnormal . GRAN MAT (NEUT) % 50.0 % (test code = 770-8) IMM GRAN % (test code 0.20 % = 8479794102) LYMPH % (test code = 36.7 % 736-9) MONO % (test code = 10.0 % 5905-5) EOS % (test code = 2.6 % 713-8) BASO % (test code = 0.5 % 706-2) GRAN MAT x10^3(ANC) 2.11 10*3/uL 1.99-6.95 (test code = 0814657634) IMM GRAN x10^3 (test <0.03 0.00-0.06 code = 6338283605) LYMPH x10^3 (test code 1.55 10*3/uL 1.09-3.23 = 731-0) MONO x10^3 (test code 0.42 10*3/uL 0.36-1.02 = 742-7) EOS x10^3 (test code = 0.11 10*3/uL 0.06-0.53 711-2) BASO x10^3 (test code <0.03 0.01-0.09 = 704-7) Lab Interpretation Abnormal (test code = 72936-4) [facility] WITH [id number] 04:23:56 Test Item Value Reference Range Interpretation Comments WBC (test code = See_Comment [Automated 6690-2) message] The sy stem which generated this result transmitted reference range : 4.20 - 10.70 10*3/?L. The reference range was not used to interpret this result as normal/abnormal . RBC (test code = See_Comment L [Automated 499-8) message] The sy stem which generated this result transmitted reference range : 4.26 - 5.52 10*6/?L. The reference range was not used to interpret this result as normal/abnormal . HGB (test code = 10.3 g/dL 12.2-16.4 L 718-7) HCT (test code = 31.8 % 38.4-49.3 L 4544-3) MCV (test code = 92.7 fL 81.7-95.6 787-2) MCH (test code = 30.0 pg 26.1-32.7 785-6) MCHC (test code = 32.4 g/dL 31.2-35.0 786-4) RDW-SD (test code = 49.0 fL 38.5-51.6 02924-2) RDW-CV (test code = 14.4 % 12.1-15.4 788-0) PLT (test code = See_Comment [Automated 777-3) message] The sy stem which generated this result transmitted reference range : 150 - 328 10*3/ ?L. The reference r meredith was not used to interpret this result as normal/abnormal . MPV (test code = 9.5 fL 9.8-13.0 L 98290-9) NRBC/100 WBC (test See_Comment [Automat ed code = 6363808899) message] The system which generated this result transmitted reference range : 0.0 - 10.0 /100 WBCs. The refer ence range was not u sed to interpret th is result as normal/abnormal . NRBC x10^3 (test code <0.01 See_Comment [Auto mated = 5115055786) message] The s ystem which generated this result transmitted reference range : 10*3/?L. The reference range was not used to interpret this result as normal/abnormal . GRAN MAT (NEUT) % 49.9 % (test code = 770-8) IMM GRAN % (test code 0.20 % = 4085730335) LYMPH % (test code = 35.2 % 736-9) MONO % (test code = 11.7 % 5905-5) EOS % (test code = 2.4 % 713-8) BASO % (test code = 0.6 % 706-2) GRAN MAT x10^3(ANC) 2.31 10*3/uL 1.99-6.95 (test code = 5770950817) IMM GRAN x10^3 (test <0.03 0.00-0.06 code = 8620309806) LYMPH x10^3 (test code 1.63 10*3/uL 1.09-3.23 = 731-0) MONO x10^3 (test code 0.54 10*3/uL 0.36-1.02 = 742-7) EOS x10^3 (test code = 0.11 10*3/uL 0.06-0.53 711-2) BASO x10^3 (test code 0.03 10*3/uL 0.01-0.09 = 704-7) Lab Interpretation Abnormal (test code = 94815-4) [facility] METABOLIC PANEL (NA, K, CL, CO2, GLUCOSE, BUN, CREATININE, CA)2021-07-24 12:55:24 Test Item Value Reference Range Interpretation Comments NA (test code = 135 mmol/L 135-145 7863607603) K (test code = 4.0 mmol/L 3.5-5.0 8666298427) CL (test code = 109 mmol/L 98-108 H 0611714844) CO2 TOTAL (test code = 22 mmol/L 23-31 L 4937534094) AGAP (test code = 2-16 3991713865) BUN (test code = 12 mg/dL 7-23 2464931573) GLUCOSE (test code = 102 mg/dL 70-110 1902532760) CREATININE (test code = 1.27 mg/dL 0.60-1.25 H 8034471129) CALCIUM (test code = 8.6 mg/dL 8.6-10.6 4576650323) eGFR (test code = mL/min/1.73m2 2572598080) GILBERTO (test code = GILBERTO) Association of Glomerular Filtration Rate (GFR) and Staging of Kidney Disease* + --+ --+ ------+| GFR (mL/min/1.73 m2) ?| With Kidney Damage ?| ?Without Kidney Damage+ --------+ --------+ +| ?>90 ?| ?Stage one ?| ? Normal ?+ ---+ ---+ -------+| ?60-89 ?| ?Stage two ?| ? Decreased GFR ? + --+ --+ ------+| ?30-59 ?| ?Stage three ?| ? Stage three ? + --+ --+ ------+| ?15-29 ?| ?Stage four ? | ? Stage four ?+ ---+ ---+ -------+| ?<15 (or dialysis) ? ?| ?Stage five ? | ? Stage five ?+ ---+ ---+ -------+ *Each stage assumes the associated GFR level has been in effect for at least three months. ?Stages 1 to 5, with or without kidney disease, indicate chronic kidney disease. Notes: Determination of stages one and two (with eGFR >59mL/min/1.73 m2) requires estimation of kidney damage for at least three months as defined by structural or functional abnormalities of the kidney, manifested by either:Pathological abnormalities or Markers of kidney damage (including abnormalities in the composition of the blood or urine or abnormalities in imaging tests). Lab Interpretation Abnormal (test code = 37119-1) [facility] 12:55:24 Test Item Value Reference Range Interpretation Comments MAGNESIUM (test code = 7776162929) 1.7 mg/dL 1.7-2.4 Lab Interpretation (test code = Normal 88613-9) [facility] 12:55:24 Test Item Value Reference Range Interpretation Comments PHOSPHORUS (test code = 9537295649) 3.1 mg/dL 2.5-5.0 Lab Interpretation (test code = Normal 25640-5) [facility] (NA, K, CL, CO2, Glucose, BUN, Creatinine, CA)2021-07-23 13:27:55 Test Item Value Reference Range Interpretation Comments NA (test code = 134 mmol/L 135-145 L 2817568411) K (test code = 3.8 mmol/L 3.5-5.0 2381247068) CL (test code = 107 mmol/L 98-108 7265331218) CO2 TOTAL (test code = 21 mmol/L 23-31 L 3404638443) AGAP (test code = 2-16 3163994494) BUN (test code = 18 mg/dL 7-23 1321270549) GLUCOSE (test code = 120 mg/dL 70-110 H [id number]) CREATININE (test code = 1.46 mg/dL 0.60-1.25 H 1108993664) CALCIUM (test code = 8.7 mg/dL 8.6-10.6 3533053616) eGFR (test code = mL/min/1.73m2 0337535390) GILBERTO (test code = GILBERTO) Association of Glomerular Filtration Rate (GFR) and Staging of Kidney Disease* + --+ --+ ------+| GFR (mL/min/1.73 m2) ?| With Kidney Damage ?| ?Without Kidney Damage+ --------+ --------+ +| ?>90 ?| ?Stage one ?| ? Normal ?+ ---+ ---+ -------+| ?60-89 ?| ?Stage two ?| ? Decreased GFR ? + --+ --+ ------+| ?30-59 ?| ?Stage three ?| ? Stage three ? + --+ --+ ------+| ?15-29 ?| ?Stage four ? | ? Stage four ?+ ---+ ---+ -------+| ?<15 (or dialysis) ? ?| ?Stage five ? | ? Stage five ?+ ---+ ---+ -------+ *Each stage assumes the associated GFR level has been in effect for at least three months. ?Stages 1 to 5, with or without kidney disease, indicate chronic kidney disease. Notes: Determination of stages one and two (with eGFR >59mL/min/1.73 m2) requires estimation of kidney damage for at least three months as defined by structural or functional abnormalities of the kidney, manifested by either:Pathological abnormalities or Markers of kidney damage (including abnormalities in the composition of the blood or urine or abnormalities in imaging tests). Lab Interpretation Abnormal (test code = 55362-0) [facility] Test Item Value Reference Range Interpretation Comments MAGNESIUM (test code = [id number]) 1.9 mg/dL 1.7-2.4 Lab Interpretation (test code = Normal 81311-3) [facility] 13:27:55 Test Item Value Reference Range Interpretation Comments PHOSPHORUS (test code = 1039650913) 3.5 mg/dL 2.5-5.0 Lab Interpretation (test code = Normal 41872-2) [facility] with [id number] 13:06:55 Test Item Value Reference Range Interpretation Comments WBC (test code = See_Comment [Automated 4874-2) message] The sy stem which generated this result transmitted reference range : 4.20 - 10.70 10*3/?L. The reference range was not used to interpret this result as normal/abnormal . RBC (test code = See_Comment L [Automated 789-8) message] The sy stem which generated this result transmitted reference range : 4.26 - 5.52 10*6/?L. The reference range was not used to interpret this result as normal/abnormal . HGB (test code = 11.6 g/dL 12.2-16.4 L 718-7) HCT (test code = 34.8 % 38.4-49.3 L 4544-3) MCV (test code = 90.9 fL 81.7-95.6 787-2) MCH (test code = 30.3 pg 26.1-32.7 785-6) MCHC (test code = 33.3 g/dL 31.2-35.0 786-4) RDW-SD (test code = 47.8 fL 38.5-51.6 68819-8) RDW-CV (test code = 14.4 % 12.1-15.4 788-0) PLT (test code = See_Comment [Automated 777-3) message] The sy stem which generated this result transmitted reference range : 150 - 328 10*3/ ?L. The reference r meredith was not used to interpret this result as normal/abnormal . MPV (test code = 9.4 fL 9.8-13.0 L 57148-3) NRBC/100 WBC (test See_Comment [Automat ed code = 5372049015) message] The system which generated this result transmitted reference range : 0.0 - 10.0 /100 WBCs. The refer ence range was not u sed to interpret th is result as normal/abnormal . NRBC x10^3 (test code <0.01 See_Comment [Auto mated = 3594887709) message] The s ystem which generated this result transmitted reference range : 10*3/?L. The reference range was not used to interpret this result as normal/abnormal . GRAN MAT (NEUT) % 54.7 % (test code = 770-8) IMM GRAN % (test code 0.40 % = 7782929835) LYMPH % (test code = 33.3 % 736-9) MONO % (test code = 9.4 % 5905-5) EOS % (test code = 1.8 % 713-8) BASO % (test code = 0.4 % 706-2) GRAN MAT x10^3(ANC) 2.78 10*3/uL 1.99-6.95 (test code = 3838121846) IMM GRAN x10^3 (test <0.03 0.00-0.06 code = 4677061622) LYMPH x10^3 (test code 1.69 10*3/uL 1.09-3.23 = 731-0) MONO x10^3 (test code 0.48 10*3/uL 0.36-1.02 = 742-7) EOS x10^3 (test code = 0.09 10*3/uL 0.06-0.53 711-2) BASO x10^3 (test code <0.03 0.01-0.09 = 704-7) Lab Interpretation Abnormal (test code = 43794-0) [facility] W/AUTO [id number] 09:48:00 Test Item Value Reference Range Interpretation Comments WHITE BLOOD CELL (test code = WBC) 9.4 K/uL 3.5-11.0 N RED BLOOD CELL (test code = RBC) 4.45 M/uL 4.00-5.60 N HEMOGLOBIN (test code = HGB) 13.7 GM/DL 12.5-16.9 N HEMATOCRIT (test code = HCT) 39.3 % 40.0-54.0 L MEAN CELL VOLUME (test code = MCV) 88.3 fL 81.0-99.0 N MEAN CELL HGB (test code = MCH) 30.8 pg 27.0-31.0 N MEAN CELL HGB CONCETRATION (test 34.9 GM/DL 33.0-37.0 N code = MCHC) RED CELL DISTRIBUTION WIDTH CV 14.7 % 11.5-14.5 H (test code = RDW) PLATELET COUNT (test code = PLT) 361 K/mm3 150-400 N MEAN PLATELET VOLUME (test code = 10.1 FL 8.8-13.1 N MPV) NEUTROPHIL % (test code = NT%) 53.6 % 40.0-76.0 N LYMPHOCYTE % (test code = LY%) 38.0 % 15.0-40.0 N MIXED % (test code = MX%) 8.4 % 3.0-15.0 N NEUTROPHIL # (test code = NT#) 5.0 K/uL 1.8-7.6 N LYMPHOCYTE # (test code = LY#) 3.6 K/uL 1.0-3.8 N MIXED # (test code = MX#) 0.8 k/mm3 0.1-0.8 N GLUCOSE [id number] 06:12:00 Test Item Value Reference Range Interpretation Comments GLUCOSE BEDSIDE (test 129 MG/DL 70-110 H Perfor med by certified code = GLUBED) 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 [facility] BASIC METABOLIC [id number] 05:21:00 Test Item Value Reference Range Interpretation Comments SODIUM (test code = NA/ABG) 136 MEQ/L 134-147 N POTASSIUM (test code = K/ABG) 3.4 MEQ/L 3.4-5.0 N CHLORIDE (test code = CL/ABG) 100 MEQ/L 100-108 N CREATININE ABG (test code = 1.8 mg/dL 0.8-1.3 H CREAABG) POC IONIZED CALCIUM (test code = 1.22 MMOL/L 1.12-1.32 N POCCA) POC GLUCOSE (test code = POCGLU) 92 MG/DL GLUCOSE [id number] 05:19:00 Test Item Value Reference Range Interpretation Comments GLUCOSE BEDSIDE (test 51 MG/DL 70-110 L Perfor med by certified code = GLUBED) 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 [facility] CBC W/AUTO [id number] 14:00:00 Test Item Value Reference Range Interpretation Comments WHITE BLOOD CELL (test code = WBC) 7.5 K/uL 3.5-11.0 N RED BLOOD CELL (test code = RBC) 4.51 M/uL 4.00-5.60 N HEMOGLOBIN (test code = HGB) 14.2 GM/DL 12.5-16.9 N HEMATOCRIT (test code = HCT) 39.3 % 40.0-54.0 L MEAN CELL VOLUME (test code = MCV) 87.1 fL 81.0-99.0 N MEAN CELL HGB (test code = MCH) 31.5 pg 27.0-31.0 H MEAN CELL HGB CONCETRATION (test 36.1 GM/DL 33.0-37.0 N code = MCHC) RED CELL DISTRIBUTION WIDTH CV 15.0 % 11.5-14.5 H (test code = RDW) RED CELL DISTRIBUTION WIDTH SD 46.6 % 37.0-54.0 N (test code = RDW-SD) PLATELET COUNT (test code = PLT) 322 K/mm3 150-400 N MEAN PLATELET VOLUME (test code = 9.5 FL 8.8-13.1 N MPV) NEUTROPHIL % (test code = NT%) 66.0 % 40.0-76.0 N LYMPHOCYTE % (test code = LY%) 32.0 % 15.0-40.0 N MIXED % (test code = MX%) 2.0 % 3.0-15.0 L NEUTROPHIL # (test code = NT#) 4.9 K/uL 1.8-7.6 N LYMPHOCYTE # (test code = LY#) 2.4 K/uL 1.0-3.8 N MIXED # (test code = MX#) 0.2 k/mm3 0.1-0.8 N CBC W/AUTO [id number] 00:07:00 Test Item Value Reference Range Interpretation Comments WHITE BLOOD CELL (test code = 7.7 K/uL 3.5-11.0 N WBC) RED BLOOD CELL (test code = RBC) 4.58 M/uL 4.00-5.60 N HEMOGLOBIN (test code = HGB) 14.3 GM/DL 12.5-16.9 N HEMATOCRIT (test code = HCT) 39.9 % 40.0-54.0 L MEAN CELL VOLUME (test code = 87.1 fL 81.0-99.0 N MCV) MEAN CELL HGB (test code = MCH) 31.2 pg 27.0-31.0 H MEAN CELL HGB CONCETRATION (test 35.8 GM/DL 33.0-37.0 N code = MCHC) RED CELL DISTRIBUTION WIDTH CV 15.0 % 11.5-14.5 H (test code = RDW) PLATELET COUNT (test code = PLT) 327 K/mm3 150-400 N MEAN PLATELET VOLUME (test code = 9.6 FL 8.8-13.1 N MPV) NEUTROPHIL % (test code = NT%) % 40.0-76.0 NO RESULT LYMPHOCYTE % (test code = LY%) 31.7 % 15.0-40.0 N NEUTROPHIL # (test code = NT#) K/uL 1.8-7.6 NO RESULT LYMPHOCYTE # (test code = LY#) 2.4 K/uL 1.0-3.8 N LIVER [id number] 16:14:00 Test Item Value Reference Range Interpretation Comments TOTAL PROTEIN (test code 7.5 GM/DL 5.0-8.0 N Per formed by = PROT) 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 [facility] ALBUMIN (test code = 3.9 g/dL 3.4-5.0 N ALB) BILIRUBIN TOTAL (test 0.5 MG/DL 0.0-1.0 N code = BILT) SGOT/AST (test code = 28 IUnit/L 15-37 N AST) SGPT/ALT (test code = 21 IUnit/L 30-65 L ALT) GAMMA GLUTAMYL 14 UNITS/L 5-85 N TRANSPEPTIDASE (test code = GGT) ALKALINE PHOSPHATASE 90 IUNIT/L 20-125 N TOTAL (test code = ALKP) AMYLASE (test code = 65 UNITS/L 25-125 N LYNDSEY) BASIC METABOLIC [id number] 16:07:00 Test Item Value Reference Range Interpretation Comments SODIUM (test code = NA/ABG) 137 MEQ/L 134-147 N POTASSIUM (test code = K/ABG) 4.7 MEQ/L 3.4-5.0 N CHLORIDE (test code = CL/ABG) 103 MEQ/L 100-108 N CREATININE ABG (test code = 1.6 mg/dL 0.8-1.3 H CREAABG) POC IONIZED CALCIUM (test code = 1.26 MMOL/L 1.12-1.32 N POCCA) POC GLUCOSE (test code = POCGLU) 96 MG/DL - XR CHEST 1 [id number] 00:00:00 [facility] 1970 Sex: MFAX: Sabi Urias MD [phone] [place]erry: [place] St: PRE Name: DORA JOSEPH FSED : 1970 Age/S: 51/M [address] [facility]. Unit #: [id number] Loc: [place] [address] Phys: Sabi Urias MD Acct: [id number] Dis Date: Status: PRE ER PHONE #: Exam Date: 06/27/2021 0396 FAX #: Reason: Abdominal PainEXAMS: CPT CODE: [id number] XR CHEST 1 V 09130 PROCEDURE INFORMATION: Exam: XR Chest Exam date and time: 06/27/2021 3:37 PM Age: 51 years old Clinical indication: Other: Abdominal pain TECHNIQUE: Imagingprotocol: XR of the chest. Views: 1 view. COMPARISON: DX XR CHEST 1V 02/23/2020 8:56 PM FINDINGS: Lungs: No pulmonary infiltrate. Pleural spaces: No pleural effusion or pneumothorax. Heart/Mediastinum: Heart size is within normal limits. Vasculature is unremarkable. Bones/joints: Unremarkable. Gastrointestinal tract: There is gaseous distention of stomach or colon elevating the left diaphragm IMPRESSION: Gaseous distention of stomach or colon elevates the left diaphragm. No acute cardiopulmonary findings otherwise.. at 8586 Reported and signed by: Андрей Mar M.D. CC: Sabi Urias MD Technologist: RT Alanna(R)(CT) Trnscrd Date/Time/By: 06/27/2021 (1551) : By: [email or web address] Orig Print D/T: S: 06/27/2021 (9878) PAGE 1 Signed Report- CT ABD PELVIS W/[id number] 00:00:00 [facility] : 1970 Sex: MName: DORA JOSEPH FSED : 1970 Age/S: 51 / M [address] [facility] Unit #: [id number] Loc: [place] [address] Phys: Sabi Urias MD Acct: [id number] Dis Date: Status: REG ER PHONE #: Exam Date: 06/27/2021 3747 FAX #: Reason: pain in region of colostomy EXAMS: CPT CODE: [id number] CT ABD PELVIS W/CONT 85489 PROCEDURE INFORMATION: Exam: CT Abdomen And Pelvis With Contrast Exam date and time: 06/27/2021 4:14 PM Age: 51 years old Clinical indication: Abdominal pain; Generalized; Additional info: Pain in region of colostomy TECHNIQUE: Imaging protocol: Computed tomography of the abdomen and pelvis with contrast. Radiation optimization: All CT scans at this facility use at least one of these dose optimization techniques: automated exposure control; mA and/or kV adjustment per patient size (includes targeted exams where dose is matched to clinical indication); or iterative reconstruction. Contrast material: 300; Contrast volume: 100 ml; Contrast route: INTRAVENOUS (IV) COMPARISON: CT ABD PELVIS W/CONT 04/28/2021 7:11 PM FINDINGS: ABDOMINAL ORGANS: No acute CT abnormalities of the liver, spleen, pancreas, adrenal glands or kidneys are detected. There is no CT evidence of acute renal collecting system obstruction or calcified renal collecting system stone. BILIARY: The gallbladderis normally distended. No significant biliary ductal dilatation is detected. GASTROINTESTINAL: Bowel assessment is limited by the absence of bowel contrast. No gross abnormalities of the stomach or duodenum are identified. 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 A parastomal fat containing hernia is present is present with ileo stomy prolapse. No small bowel dilatation is present to suggest associated intestinal obstruction. The Aaron pouch has an unremarkable CT appearance. PERITONEUM: No evidence of free intraperitoneal air. No significant free intraperitoneal fluid. RETROPERITONEUM: The abdominal aorta demonstrates no e vidence of aneurysm or dissection. There is no evidence of retroperitoneal mass or adenopathy. PELVIS: The bladder has an unremarkable appearance. No enlarged pelvic lymph nodes are identified. LOWER CHEST: The lung bases appear clear of acute disease. ADDITIONAL FINDINGS: None. IMPRESSION: 1. 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 A peristomal fat containing hernia is present PAGE 1 Signed Report (CONTINUED) Name: DORA JOSEPH FSED : 1970 Age/S: 51 / M [address] [facility] Unit #: [id number] Loc: [place] [address] Phys: Sabi Urias MD Acct: [id number] Dis Date: Status: REG ER PHONE #: Exam Date: 06/27/2021 1625 FAX #: Reason: pain in region of colostomy EXAMS: CPT CODE: [id number] CT ABD PELVIS W/CONT 31450 <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 There is no evidence of associated intestinal obstruction. 2. No additional acute CT abnormalities of the abdomen or pelvis are identified. SL:131 at 1650 Reported and signed by: Marco Raman M.D. CC: Sabi Urias MD Technologist:RT Alanna(R)(CT) CTDI: DLP: Trnscb Date/Time: 06/27/2021 (1649) [place] Orig Print D/T: S: 06/27/2021 (165) PAGE 2 Signed ReportBASIC METABOLIC PANEL (NA, K, CL, CO2, GLUCOSE, BUN, CREATININE, CA)2021-06-03 11:32:40 Test Item Value Reference Range Interpretation Comments NA (test code = 133 mmol/L 135-145 L 9962035977) K (test code = 3.7 mmol/L 3.5-5.0 1636539870) CL (test code = 108 mmol/L 98-108 2741663309) CO2 TOTAL (test code = 20 mmol/L 23-31 L 7540924846) AGAP (test code = 2-16 6156498800) BUN (test code = 11 mg/dL 7-23 2548308330) GLUCOSE (test code = 82 mg/dL 70-110 7923620662) CREATININE (test code = 0.96 mg/dL 0.60-1.25 2519582036) CALCIUM (test code = 8.6 mg/dL 8.6-10.6 2856203138) eGFR (test code = mL/min/1.73m2 1256953127) GILBERTO (test code = GILBERTO) Association of Glomerular Filtration Rate (GFR) and Staging of Kidney Disease* + --+ --+ ------+| GFR (mL/min/1.73 m2) ?| With Kidney Damage ?| ?Without Kidney Damage+ --------+ --------+ +| ?>90 ?| ?Stage one ?| ? Normal ?+ ---+ ---+ -------+| ?60-89 ?| ?Stage two ?| ? Decreased GFR ? + --+ --+ ------+| ?30-59 ?| ?Stage three ?| ? Stage three ? + --+ --+ ------+| ?15-29 ?| ?Stage four ? | ? Stage four ?+ ---+ ---+ -------+| ?<15 (or dialysis) ? ?| ?Stage five ? | ? Stage five ?+ ---+ ---+ -------+ *Each stage assumes the associated GFR level has been in effect for at least three months. ?Stages 1 to 5, with or without kidney disease, indicate chronic kidney disease. Notes: Determination of stages one and two (with eGFR >59mL/min/1.73 m2) requires estimation of kidney damage for at least three months as defined by structural or functional abnormalities of the kidney, manifested by either:Pathological abnormalities or Markers of kidney damage (including abnormalities in the composition of the blood or urine or abnormalities in imaging tests). Lab Interpretation Abnormal (test code = 57615-4) [facility] METABOLIC PANEL (NA, K, CL, CO2, GLUCOSE, BUN, CREATININE, CA)2021-06-02 11:45:25 Test Item Value Reference Range Interpretation Comments NA (test code = 133 mmol/L 135-145 L 7352495888) K (test code = 3.7 mmol/L 3.5-5.0 6697686902) CL (test code = 111 mmol/L 98-108 H 3717273813) CO2 TOTAL (test code = 17 mmol/L 23-31 L 5818583067) AGAP (test code = 2-16 1885560914) BUN (test code = 15 mg/dL 7-23 5508406389) GLUCOSE (test code = 88 mg/dL 70-110 3309757377) CREATININE (test code = 0.96 mg/dL 0.60-1.25 9193683577) CALCIUM (test code = 8.1 mg/dL 8.6-10.6 L 2467202779) eGFR (test code = mL/min/1.73m2 1480563375) GILBERTO (test code = GILBERTO) Association of Glomerular Filtration Rate (GFR) and Staging of Kidney Disease* + --+ --+ ------+| GFR (mL/min/1.73 m2) ?| With Kidney Damage ?| ?Without Kidney Damage+ --------+ --------+ +| ?>90 ?| ?Stage one ?| ? Normal ?+ ---+ ---+ -------+| ?60-89 ?| ?Stage two ?| ? Decreased GFR ? + --+ --+ ------+| ?30-59 ?| ?Stage three ?| ? Stage three ? + --+ --+ ------+| ?15-29 ?| ?Stage four ? | ? Stage four ?+ ---+ ---+ -------+| ?<15 (or dialysis) ? ?| ?Stage five ? | ? Stage five ?+ ---+ ---+ -------+ *Each stage assumes the associated GFR level has been in effect for at least three months. ?Stages 1 to 5, with or without kidney disease, indicate chronic kidney disease. Notes: Determination of stages one and two (with eGFR >59mL/min/1.73 m2) requires estimation of kidney damage for at least three months as defined by structural or functional abnormalities of the kidney, manifested by either:Pathological abnormalities or Markers of kidney damage (including abnormalities in the composition of the blood or urine or abnormalities in imaging tests). Lab Interpretation Abnormal (test code = 69629-8) [facility] METABOLIC PANEL (NA, K, CL, CO2, GLUCOSE, BUN, CREATININE, CA)2021-06-01 17:06:47 Test Item Value Reference Range Interpretation Comments NA (test code = 131 mmol/L 135-145 L 9216215645) K (test code = 3.9 mmol/L 3.5-5.0 Slight 8444309988) hemolysis CL (test code = 108 mmol/L 98-108 3595045053) CO2 TOTAL (test code 15 mmol/L 23-31 L = 3920274620) AGAP (test code = 2-16 3507355334) BUN (test code = 26 mg/dL 7-23 H Slight 6183132934) hemolysis GLUCOSE (test code = 85 mg/dL 70-110 7527697614) CREATININE (test code 1.26 mg/dL 0.60-1.25 H = 1238667498) CALCIUM (test code = 8.1 mg/dL 8.6-10.6 L 9321113004) eGFR (test code = mL/min/1.73m2 3658944226) GILBERTO (test code = GILBERTO) Association of Glomerular Filtration Rate (GFR) and Staging of Kidney Disease* + -----+ --------+ +| GFR (mL/min/1.73 m2) ?| With Kidney Damage ?| ?Without Kidney Damage+ +------- +---- --+| ?>90 ?| ?Stage one ?| ? Normal ?+ ------+ ---------+--------- +| ?60-89 ?| ?Stage two ?| ? Decreased GFR ? + -----+ --------+ +| ?30-59 ?| ?Stage three ?| ? Stage three ? + -----+ --------+ +| ?15-29 ?| ?Stage four ? | ? Stage four ?+ ------+ ---------+--------- +| ?<15 (or dialysis) ? ?| ?Stage five ? | ? Stage five ?+ ------+ ---------+--------- + *Each stage assumes the associated GFR level has been in effect for at least three months. ?Stages 1 to 5, with or without kidney disease, indicate chronic kidney disease. Notes: Determination of stages one and two (with eGFR >59mL/min/1.73 m2) requires estimation of kidney damage for at least three months as defined by structural or functional abnormalities of the kidney, manifested by either:Pathological abnormalities or Markers of kidney damage (including abnormalities in the composition of the blood or urine or abnormalities in imaging tests). Lab Interpretation Abnormal (test code = 97571-6) [facility] CenterLactic Acid Whole [id number] 05:45:35 Test Item Value Reference Range Interpretation Comments LACTIC ACID (test code = 0.67 mmol/L 0.50-2.20 6029225459) Lab Interpretation (test code = Normal 98626-9) [facility] CenterTROP[facility]IN [id number] 23:44:55 Test Item Value Reference Interpretation Comments Range TROPONIN I (test 0.004 ng/mL See_Comment [Automated code = 6889222127) message] The system which generated this result transmitted reference range : <=0.034. The reference range was not used to interpret this result as normal/abnormal . GILBERTO (test code = Reference (Normal) GILBERTO) Range (defined by the 99th percentile reference limit): <= 0.034 ng/mL Note: Cardiac troponin begins to rise 3-4 hours after the onset of ischemia. Repeat in 4-6 hours if the sample was drawn within 3-4 hours of the onset of the symptom and found normal. Diagnosis of myocardial injury is made with acute changes in cTn concentrations with at least one serial sample above the 99th percentile upper reference limit (URL), taken together with the patient's clinical presentation. Biotin has been reported to cause a negative bias, interpret results relative to patient's use of biotin. Lab Interpretation Normal (test code = 44879-5) [facility] CenterLIPASE2021-[facility] 23:33:28 Test Item Value Reference Range Interpretation Comments LIPASE (test code = 2389176434) 386 U/L 0-220 H Lab Interpretation (test code = Abnormal 30640-5) [facility]. METABOLIC PANEL (66478)2021-05-31 23:33:28 Test Item Value Reference Range Interpretation Comments NA (test code = 128 mmol/L 135-145 L 2084160053) K (test code = 4.2 mmol/L 3.5-5.0 1924294395) CL (test code = 102 mmol/L 98-108 1632137024) CO2 TOTAL (test code = 13 mmol/L 23-31 L 1531485291) AGAP (test code = 2-16 3570214862) BUN (test code = 47 mg/dL 7-23 H 4424418312) GLUCOSE (test code = 106 mg/dL 70-110 7978817290) CREATININE (test code = 2.38 mg/dL 0.60-1.25 H 3844452866) TOTAL BILI (test code = 0.6 mg/dL 0.1-1.9 4727400641) CALCIUM (test code = 9.5 mg/dL 8.6-10.6 3736227778) T PROTEIN (test code = 7.3 g/dL 6.3-8.2 4995836524) ALBUMIN (test code = 4.6 g/dL 3.5-5.0 8948696195) ALK PHOS (test code = 110 U/L 34-122 2326953323) ALTv (test code = 29 U/L 5-50 1742-6) AST(SGOT) (test code = 33 U/L 13-40 8164164775) eGFR (test code = mL/min/1.73m2 5035070491) GILBERTO (test code = GILBERTO) Association of Glomerular Filtration Rate (GFR) and Staging of Kidney Disease* + --+ --+ ------+| GFR (mL/min/1.73 m2) ?| With Kidney Damage ?| ?Without Kidney Damage+ --------+ --------+ +| ?>90 ?| ?Stage one ?| ? Normal ?+ ---+ ---+ -------+| ?60-89 ?| ?Stage two ?| ? Decreased GFR ? + --+ --+ ------+| ?30-59 ?| ?Stage three ?| ? Stage three ? + --+ --+ ------+| ?15-29 ?| ?Stage four ? | ? Stage four ?+ ---+ ---+ -------+| ?<15 (or dialysis) ? ?| ?Stage five ? | ? Stage five ?+ ---+ ---+ -------+ *Each stage assumes the associated GFR level has been in effect for at least three months. ?Stages 1 to 5, with or without kidney disease, indicate chronic kidney disease. Notes: Determination of stages one and two (with eGFR >59mL/min/1.73 m2) requires estimation of kidney damage for at least three months as defined by structural or functional abnormalities of the kidney, manifested by either:Pathological abnormalities or Markers of kidney damage (including abnormalities in the composition of the blood or urine or abnormalities in imaging tests). Lab Interpretation Abnormal (test code = 07579-2) [facility] WITH [id number] 22:57:06 Test Item Value Reference Range Interpretation Comments WBC (test code = See_Comment [Automated 0715-2) message] The sy stem which generated this result transmitted reference range : 4.20 - 10.70 10*3/?L. The reference range was not used to interpret this result as normal/abnormal . RBC (test code = See_Comment [Automated 552-8) message] The sy stem which generated this result transmitted reference range : 4.26 - 5.52 10*6/?L. The reference range was not used to interpret this result as normal/abnormal . HGB (test code = 14.2 g/dL 12.2-16.4 718-7) HCT (test code = 39.5 % 38.4-49.3 4544-3) MCV (test code = 87.2 fL 81.7-95.6 787-2) MCH (test code = 31.3 pg 26.1-32.7 785-6) MCHC (test code = 35.9 g/dL 31.2-35.0 H 786-4) RDW-SD (test code = 43.2 fL 38.5-51.6 12460-4) RDW-CV (test code = 13.7 % 12.1-15.4 788-0) PLT (test code = See_Comment [Automated 367-3) message] The sy stem which generated this result transmitted reference range : 150 - 328 10*3/ ?L. The reference r meredith was not used to interpret this result as normal/abnormal . MPV (test code = 10.1 fL 9.8-13.0 43955-1) NRBC/100 WBC (test See_Comment [Automat ed code = 9362807557) message] The system which generated this result transmitted reference range : 0.0 - 10.0 /100 WBCs. The refer ence range was not u sed to interpret th is result as normal/abnormal . NRBC x10^3 (test code <0.01 See_Comment [Auto mated = 0359238501) message] The s ystem which generated this result transmitted reference range : 10*3/?L. The reference range was not used to interpret this result as normal/abnormal . GRAN MAT (NEUT) % 68.1 % (test code = 770-8) IMM GRAN % (test code 0.40 % = 0841166437) LYMPH % (test code = 21.9 % 736-9) MONO % (test code = 8.9 % 5905-5) EOS % (test code = 0.3 % 713-8) BASO % (test code = 0.4 % 706-2) GRAN MAT x10^3(ANC) 5.38 10*3/uL 1.99-6.95 (test code = 2840690798) IMM GRAN x10^3 (test 0.03 10*3/uL 0.00-0.06 code = 1596719182) LYMPH x10^3 (test code 1.73 10*3/uL 1.09-3.23 = 731-0) MONO x10^3 (test code 0.70 10*3/uL 0.36-1.02 = 742-7) EOS x10^3 (test code = <0.03 0.06-0.53 L 711-2) BASO x10^3 (test code 0.03 10*3/uL 0.01-0.09 = 704-7) Lab Interpretation Abnormal (test code = 08189-5) [facility] Test Item Value Reference Range Interpretation Comments MAGNESIUM (test code = 7097829993) 2.0 mg/dL 1.7-2.4 Lab Interpretation (test code = Normal 38151-5) [facility] CenterPHOSPHORUS2021-[facility]-28 09:49:03 Test Item Value Reference Range Interpretation Comments PHOSPHORUS (test code = 5851518459) 4.0 mg/dL 2.5-5.0 Lab Interpretation (test code = Normal 22271-8) [facility] (NA, K, CL, CO2, GLUCOSE, BUN, CREATININE, CA)2021-05-21 09:49:03 Test Item Value Reference Range Interpretation Comments NA (test code = 132 mmol/L 135-145 L [id number]) K (test code = 4.3 mmol/L 3.5-5.0 8616834035) CL (test code = 105 mmol/L 98-108 3710058817) CO2 TOTAL (test code = 21 mmol/L 23-31 L 6291743580) AGAP (test code = 2-16 5586357317) BUN (test code = 25 mg/dL 7-23 H 6744123584) GLUCOSE (test code = 98 mg/dL 70-110 8103247186) CREATININE (test code = 1.20 mg/dL 0.60-1.25 5231565424) CALCIUM (test code = 8.4 mg/dL 8.6-10.6 L 1736483524) eGFR (test code = mL/min/1.73m2 6014687535) GILBERTO (test code = GILBERTO) Association of Glomerular Filtration Rate (GFR) and Staging of Kidney Disease* + --+ --+ ------+| GFR (mL/min/1.73 m2) ?| With Kidney Damage ?| ?Without Kidney Damage+ --------+ --------+ +| ?>90 ?| ?Stage one ?| ? Normal ?+ ---+ ---+ -------+| ?60-89 ?| ?Stage two ?| ? Decreased GFR ? + --+ --+ ------+| ?30-59 ?| ?Stage three ?| ? Stage three ? + --+ --+ ------+| ?15-29 ?| ?Stage four ? | ? Stage four ?+ ---+ ---+ -------+| ?<15 (or dialysis) ? ?| ?Stage five ? | ? Stage five ?+ ---+ ---+ -------+ *Each stage assumes the associated GFR level has been in effect for at least three months. ?Stages 1 to 5, with or without kidney disease, indicate chronic kidney disease. Notes: Determination of stages one and two (with eGFR >59mL/min/1.73 m2) requires estimation of kidney damage for at least three months as defined by structural or functional abnormalities of the kidney, manifested by either:Pathological abnormalities or Markers of kidney damage (including abnormalities in the composition of the blood or urine or abnormalities in imaging tests). Lab Interpretation Abnormal (test code = 67942-0) [facility] with Obphrwgqpjhm9573-46-04 09:22:22 Test Item Value Reference Range Interpretation Comments WBC (test code = See_Comment [Automated 1690-2) message] The sy stem which generated this result transmitted reference range : 4.20 - 10.70 10*3/?L. The reference range was not used to interpret this result as normal/abnormal . RBC (test code = See_Comment L [Automated 789-8) message] The sy stem which generated this result transmitted reference range : 4.26 - 5.52 10*6/?L. The reference range was not used to interpret this result as normal/abnormal . HGB (test code = 12.0 g/dL 12.2-16.4 L 718-7) HCT (test code = 36.3 % 38.4-49.3 L 4544-3) MCV (test code = 90.5 fL 81.7-95.6 787-2) MCH (test code = 29.9 pg 26.1-32.7 785-6) MCHC (test code = 33.1 g/dL 31.2-35.0 786-4) RDW-SD (test code = 45.6 fL 38.5-51.6 22783-6) RDW-CV (test code = 13.7 % 12.1-15.4 788-0) PLT (test code = See_Comment [Automated 777-3) message] The sy stem which generated this result transmitted reference range : 150 - 328 10*3/ ?L. The reference r meredith was not used to interpret this result as normal/abnormal . MPV (test code = 9.7 fL 9.8-13.0 L 50150-8) NRBC/100 WBC (test See_Comment [Automat ed code = 3672257232) message] The system which generated this result transmitted reference range : 0.0 - 10.0 /100 WBCs. The refer ence range was not u sed to interpret th is result as normal/abnormal . NRBC x10^3 (test code <0.01 See_Comment [Auto mated = 9011561996) message] The s ystem which generated this result transmitted reference range : 10*3/?L. The reference range was not used to interpret this result as normal/abnormal . GRAN MAT (NEUT) % 49.4 % (test code = 770-8) IMM GRAN % (test code 0.60 % = 8758720244) LYMPH % (test code = 35.2 % 736-9) MONO % (test code = 11.9 % 5905-5) EOS % (test code = 2.1 % 713-8) BASO % (test code = 0.8 % 706-2) GRAN MAT x10^3(ANC) 2.33 10*3/uL 1.99-6.95 (test code = 9874750338) IMM GRAN x10^3 (test 0.03 10*3/uL 0.00-0.06 code = 5165778937) LYMPH x10^3 (test code 1.66 10*3/uL 1.09-3.23 = 731-0) MONO x10^3 (test code 0.56 10*3/uL 0.36-1.02 = 742-7) EOS x10^3 (test code = 0.10 10*3/uL 0.06-0.53 711-2) BASO x10^3 (test code 0.04 10*3/uL 0.01-0.09 = 704-7) Lab Interpretation Abnormal (test code = 09316-4) [facility] Test Item Value Reference Range Interpretation Comments LIPASE (test code = 6494906191) 307 U/L 0-220 H Lab Interpretation (test code = Abnormal 62418-5) [facility] (41848)2021-05-20 20:21:19 Test Item Value Reference Range Interpretation Comments NA (test code = 132 mmol/L 135-145 L 3607890383) K (test code = 4.3 mmol/L 3.5-5.0 9499103508) CL (test code = 100 mmol/L 98-108 2531306108) CO2 TOTAL (test code = 18 mmol/L 23-31 L 3815963951) AGAP (test code = 2-16 1396082008) BUN (test code = 32 mg/dL 7-23 H 8042682168) GLUCOSE (test code = 100 mg/dL 70-110 4567845381) CREATININE (test code = 1.76 mg/dL 0.60-1.25 H 1321398813) TOTAL BILI (test code = 0.7 mg/dL 0.1-1.8 4484839208) CALCIUM (test code = 9.6 mg/dL 8.6-10.6 2751383898) T PROTEIN (test code = 7.5 g/dL 6.3-8.2 4086034976) ALBUMIN (test code = 4.7 g/dL 3.5-5.0 4465480866) ALK PHOS (test code = 104 U/L 34-122 5170445066) ALTv (test code = 23 U/L 5-50 1742-6) AST(SGOT) (test code = 29 U/L 13-40 4187066795) eGFR (test code = mL/min/1.73m2 7604953233) GILBERTO (test code = GILBERTO) Association of Glomerular Filtration Rate (GFR) and Staging of Kidney Disease* + --+ --+ ------+| GFR (mL/min/1.73 m2) ?| With Kidney Damage ?| ?Without Kidney Damage+ --------+ --------+ +| ?>90 ?| ?Stage one ?| ? Normal ?+ ---+ ---+ -------+| ?60-89 ?| ?Stage two ?| ? Decreased GFR ? + --+ --+ ------+| ?30-59 ?| ?Stage three ?| ? Stage three ? + --+ --+ ------+| ?15-29 ?| ?Stage four ? | ? Stage four ?+ ---+ ---+ -------+| ?<15 (or dialysis) ? ?| ?Stage five ? | ? Stage five ?+ ---+ ---+ -------+ *Each stage assumes the associated GFR level has been in effect for at least three months. ?Stages 1 to 5, with or without kidney disease, indicate chronic kidney disease. Notes: Determination of stages one and two (with eGFR >59mL/min/1.73 m2) requires estimation of kidney damage for at least three months as defined by structural or functional abnormalities of the kidney, manifested by either:Pathological abnormalities or Markers of kidney damage (including abnormalities in the composition of the blood or urine or abnormalities in imaging tests). Lab Interpretation Abnormal (test code = 49244-7) [facility] WITH [id number] 20:15:39 Test Item Value Reference Range Interpretation Comments WBC (test code = See_Comment [Automated message] 3090-2) The system [employer] generated this result transmitted ref erence range: 4.20 - 1 0.70 10*3/?L. The re ference range was not u sed to interpret this result as normal/abnor mal. RBC (test code = See_Comment [Automated message] 499-8) The system [employer] generated this result transmitted ref erence range: 4.26 - 5 .52 10*6/?L. The re ference range was not u sed to interpret this result as normal/abnor mal. HGB (test code = 13.7 g/dL 12.2-16.4 718-7) HCT (test code = 39.8 % 38.4-49.3 4544-3) MCV (test code = 89.4 fL 81.7-95.6 787-2) MCH (test code = 30.8 pg 26.1-32.7 785-6) MCHC (test code = 34.4 g/dL 31.2-35.0 786-4) RDW-SD (test code 44.8 fL 38.5-51.6 = 04698-7) RDW-CV (test code 13.7 % 12.1-15.4 = 788-0) PLT (test code = See_Comment [Automated message] 497-3) The system whic h generated this result transmitted ref erence range: 150 - 32 8 10*3/?L. The re ference range was not u sed to interpret this result as normal/abnor mal. MPV (test code = 9.8 fL 9.8-13.0 73696-1) NRBC/100 WBC (test See_Comment [Automat ed message] code = 0650700081) The syste m which generated this result transmitted ref erence range: 0.0 - 10 .0 /100 WBCs. The refer ence range was not u sed to interpret this result as normal/abnor mal. NRBC x10^3 (test <0.01 See_Comment [Automated message] code = 9946128690) The syste m which generated this result transmitted ref erence range: 10*3/?L. The reference range was not used to interpr et this result as normal/abnormal . GRAN MAT (NEUT) % 55.9 % (test code = 770-8) IMM GRAN % (test 0.40 % code = 2525550054) LYMPH % (test code 32.5 % = 736-9) MONO % (test code 9.4 % = 5905-5) EOS % (test code = 1.2 % 713-8) BASO % (test code 0.6 % = 706-2) GRAN MAT 3.87 10*3/uL 1.99-6.95 x10^3(ANC) (test code = 7538711724) IMM GRAN x10^3 0.03 10*3/uL 0.00-0.06 (test code = 4606268268) LYMPH x10^3 (test 2.25 10*3/uL 1.09-3.23 code = 731-0) MONO x10^3 (test 0.65 10*3/uL 0.36-1.02 code = 742-7) EOS x10^3 (test 0.08 10*3/uL 0.06-0.53 code = 711-2) BASO x10^3 (test 0.04 10*3/uL 0.01-0.09 code = 704-7) [facility] Center[facility] Whole [id number] 20:07:57 Test Item Value Reference Range Interpretation Comments LACTIC ACID (test code = 1.81 mmol/L 0.50-2.20 7903743474) Lab Interpretation (test code = Normal 73937-3) [facility] Metabolic Panel (NA, K, CL, CO2, GLUCOSE, BUN, CREATININE, CA)2021-05-08 10:32:35 Test Item Value Reference Range Interpretation Comments NA (test code = 135 mmol/L 135-145 7676673857) K (test code = 4.2 mmol/L 3.5-5.0 6525625243) CL (test code = 106 mmol/L 98-108 5305829875) CO2 TOTAL (test code 23 mmol/L 23-31 = 1507611288) AGAP (test code = 2-16 1713928691) BUN (test code = 22 mg/dL 7-23 5899093858) GLUCOSE (test code = 87 mg/dL 70-110 0156475046) CREATININE (test code 1.21 mg/dL 0.60-1.25 = 4735010741) CALCIUM (test code = 8.7 mg/dL 8.6-10.6 8783560395) eGFR (test code = mL/min/1.73m2 1230384537) GILBERTO (test code = GILBERTO) Association of Glomerular Filtration Rate (GFR) and Staging of Kidney Disease* + + +- +| GFR (mL/min/1.73 m2) ?| With Kidney Damage ?| ?Without Kidney Damage+ ------+ ----+ ------+| ?>90 ?| ?Stage one ?| ? Normal ?+ -+ + -+| ?60-89 ?| ?Stage two ?| ? Decreased GFR ? + + +- +| ?30-59 ?| ?Stage three ?| ? Stage three ? + + +- +| ?15-29 ?| ?Stage four ? | ? Stage four ?+ -+ + -+| ?<15 (or dialysis) ? ?| ?Stage five ? | ? Stage five ?+ -+ + -+ *Each stage assumes the associated GFR level has been in effect for at least three months. ?Stages 1 to 5, with or without kidney disease, indicate chronic kidney disease. Notes: Determination of stages one and two (with eGFR >59mL/min/1.73 m2) requires estimation of kidney damage for at least three months as defined by structural or functional abnormalities of the kidney, manifested by either:Pathological abnormalities or Markers of kidney damage (including abnormalities in the composition of the blood or urine or abnormalities in imaging tests). [facility] Metabolic Panel (NA, K, CL, CO2, GLUCOSE, BUN, CREATININE, CA)2021-05-08 10:32:35 Test Item Value Reference Range Interpretation Comments NA (test code = 135 mmol/L 135-145 1509072097) K (test code = 4.2 mmol/L 3.5-5.0 6187469852) CL (test code = 106 mmol/L 98-108 8183281285) CO2 TOTAL (test code 23 mmol/L 23-31 = 5578855882) AGAP (test code = 2-16 5559934819) BUN (test code = 22 mg/dL 7-23 9288189537) GLUCOSE (test code = 87 mg/dL 70-110 8483858289) CREATININE (test code 1.21 mg/dL 0.60-1.25 = 5511047247) CALCIUM (test code = 8.7 mg/dL 8.6-10.6 7638378428) eGFR (test code = mL/min/1.73m2 2214861089) GILBERTO (test code = GILBERTO) Association of Glomerular Filtration Rate (GFR) and Staging of Kidney Disease* + + +- +| GFR (mL/min/1.73 m2) ?| With Kidney Damage ?| ?Without Kidney Damage+ ------+ ----+ ------+| ?>90 ?| ?Stage one ?| ? Normal ?+ -+ + -+| ?60-89 ?| ?Stage two ?| ? Decreased GFR ? + + +- +| ?30-59 ?| ?Stage three ?| ? Stage three ? + + +- +| ?15-29 ?| ?Stage four ? | ? Stage four ?+ -+ + -+| ?<15 (or dialysis) ? ?| ?Stage five ? | ? Stage five ?+ -+ + -+ *Each stage assumes the associated GFR level has been in effect for at least three months. ?Stages 1 to 5, with or without kidney disease, indicate chronic kidney disease. Notes: Determination of stages one and two (with eGFR >59mL/min/1.73 m2) requires estimation of kidney damage for at least three months as defined by structural or functional abnormalities of the kidney, manifested by either:Pathological abnormalities or Markers of kidney damage (including abnormalities in the composition of the blood or urine or abnormalities in imaging tests). [facility] with Kexrjgtkzjvx9961-85-99 10:12:52 Test Item Value Reference Range Interpretation Comments WBC (test code = See_Comment [Automated 6690-2) message] The sy stem which generated this result transmitted reference range : 4.20 - 10.70 10*3/?L. The reference range was not used to interpret this result as normal/abnormal . RBC (test code = See_Comment L [Automated 789-8) message] The sy stem which generated this result transmitted reference range : 4.26 - 5.52 10*6/?L. The reference range was not used to interpret this result as normal/abnormal . HGB (test code = 12.0 g/dL 12.2-16.4 L 718-7) HCT (test code = 36.8 % 38.4-49.3 L 4544-3) MCV (test code = 94.8 fL 81.7-95.6 787-2) MCH (test code = 30.9 pg 26.1-32.7 785-6) MCHC (test code = 32.6 g/dL 31.2-35.0 786-4) RDW-SD (test code = 48.4 fL 38.5-51.6 00279-5) RDW-CV (test code = 14.0 % 12.1-15.4 788-0) PLT (test code = See_Comment [Automated 777-3) message] The sy stem which generated this result transmitted reference range : 150 - 328 10*3/ ?L. The reference r meredith was not used to interpret this result as normal/abnormal . MPV (test code = 9.6 fL 9.8-13.0 L 99424-3) NRBC/100 WBC (test See_Comment [Automat ed code = 9383347778) message] The system which generated this result transmitted reference range : 0.0 - 10.0 /100 WBCs. The refer ence range was not u sed to interpret th is result as normal/abnormal . NRBC x10^3 (test code <0.01 See_Comment [Auto mated = 3601604304) message] The s ystem which generated this result transmitted reference range : 10*3/?L. The reference range was not used to interpret this result as normal/abnormal . GRAN MAT (NEUT) % 55.6 % (test code = 770-8) IMM GRAN % (test code 0.20 % = 2372760454) LYMPH % (test code = 31.5 % 736-9) MONO % (test code = 9.9 % 5905-5) EOS % (test code = 2.0 % 713-8) BASO % (test code = 0.8 % 706-2) GRAN MAT x10^3(ANC) 2.76 10*3/uL 1.99-6.95 (test code = 1439696550) IMM GRAN x10^3 (test <0.03 0.00-0.06 code = 6367655383) LYMPH x10^3 (test code 1.56 10*3/uL 1.09-3.23 = 731-0) MONO x10^3 (test code 0.49 10*3/uL 0.36-1.02 = 742-7) EOS x10^3 (test code = 0.10 10*3/uL 0.06-0.53 711-2) BASO x10^3 (test code 0.04 10*3/uL 0.01-0.09 = 704-7) Lab Interpretation Abnormal (test code = 75532-6) [facility] with Sxdwnqxxdpgr5757-89-04 10:12:52 Test Item Value Reference Range Interpretation Comments WBC (test code = See_Comment [Automated 6690-2) message] The sy stem which generated this result transmitted reference range : 4.20 - 10.70 10*3/?L. The reference range was not used to interpret this result as normal/abnormal . RBC (test code = See_Comment L [Automated 789-8) message] The sy stem which generated this result transmitted reference range : 4.26 - 5.52 10*6/?L. The reference range was not used to interpret this result as normal/abnormal . HGB (test code = 12.0 g/dL 12.2-16.4 L 718-7) HCT (test code = 36.8 % 38.4-49.3 L 4544-3) MCV (test code = 94.8 fL 81.7-95.6 787-2) MCH (test code = 30.9 pg 26.1-32.7 785-6) MCHC (test code = 32.6 g/dL 31.2-35.0 786-4) RDW-SD (test code = 48.4 fL 38.5-51.6 42516-9) RDW-CV (test code = 14.0 % 12.1-15.4 788-0) PLT (test code = See_Comment [Automated 777-3) message] The sy stem which generated this result transmitted reference range : 150 - 328 10*3/ ?L. The reference r meredith was not used to interpret this result as normal/abnormal . MPV (test code = 9.6 fL 9.8-13.0 L 74088-6) NRBC/100 WBC (test See_Comment [Automat ed code = 4258905073) message] The system which generated this result transmitted reference range : 0.0 - 10.0 /100 WBCs. The refer ence range was not u sed to interpret th is result as normal/abnormal . NRBC x10^3 (test code <0.01 See_Comment [Auto mated = 5371716579) message] The s ystem which generated this result transmitted reference range : 10*3/?L. The reference range was not used to interpret this result as normal/abnormal . GRAN MAT (NEUT) % 55.6 % (test code = 770-8) IMM GRAN % (test code 0.20 % = 9285402985) LYMPH % (test code = 31.5 % 736-9) MONO % (test code = 9.9 % 5905-5) EOS % (test code = 2.0 % 713-8) BASO % (test code = 0.8 % 706-2) GRAN MAT x10^3(ANC) 2.76 10*3/uL 1.99-6.95 (test code = 7509223258) IMM GRAN x10^3 (test <0.03 0.00-0.06 code = 4779065398) LYMPH x10^3 (test code 1.56 10*3/uL 1.09-3.23 = 731-0) MONO x10^3 (test code 0.49 10*3/uL 0.36-1.02 = 742-7) EOS x10^3 (test code = 0.10 10*3/uL 0.06-0.53 711-2) BASO x10^3 (test code 0.04 10*3/uL 0.01-0.09 = 704-7) Lab Interpretation Abnormal (test code = 88993-1) [facility] METABOLIC PANEL (NA, K, CL, CO2, GLUCOSE, BUN, CREATININE, CA)2021-05-08 01:11:57 Test Item Value Reference Range Interpretation Comments NA (test code = 134 mmol/L 135-145 L 6543580131) K (test code = 4.7 mmol/L 3.5-5.0 3561184037) CL (test code = 100 mmol/L 98-108 4285061117) CO2 TOTAL (test code = 24 mmol/L 23-31 4375065051) AGAP (test code = 2-16 0834018179) BUN (test code = 27 mg/dL 7-23 H 4446301012) GLUCOSE (test code = 94 mg/dL 70-110 1594090903) CREATININE (test code = 1.31 mg/dL 0.60-1.25 H 8252406301) CALCIUM (test code = 9.5 mg/dL 8.6-10.6 2966229931) eGFR (test code = mL/min/1.73m2 9650126178) GILBERTO (test code = GILBERTO) Association of Glomerular Filtration Rate (GFR) and Staging of Kidney Disease* + --+ --+ ------+| GFR (mL/min/1.73 m2) ?| With Kidney Damage ?| ?Without Kidney Damage+ --------+ --------+ +| ?>90 ?| ?Stage one ?| ? Normal ?+ ---+ ---+ -------+| ?60-89 ?| ?Stage two ?| ? Decreased GFR ? + --+ --+ ------+| ?30-59 ?| ?Stage three ?| ? Stage three ? + --+ --+ ------+| ?15-29 ?| ?Stage four ? | ? Stage four ?+ ---+ ---+ -------+| ?<15 (or dialysis) ? ?| ?Stage five ? | ? Stage five ?+ ---+ ---+ -------+ *Each stage assumes the associated GFR level has been in effect for at least three months. ?Stages 1 to 5, with or without kidney disease, indicate chronic kidney disease. Notes: Determination of stages one and two (with eGFR >59mL/min/1.73 m2) requires estimation of kidney damage for at least three months as defined by structural or functional abnormalities of the kidney, manifested by either:Pathological abnormalities or Markers of kidney damage (including abnormalities in the composition of the blood or urine or abnormalities in imaging tests). Lab Interpretation Abnormal (test code = 79800-2) [facility] (ALB,T.PRO,BILI T,BU/BC,ALT,AST,ALK PHOS)2021-05-08 01:11:57 Test Item Value Reference Range Interpretation Comments TOTAL BILI (test code = 9115302643) 0.8 mg/dL 0.1-1.1 BILI UNCON (test code = 6395336494) 0.2 mg/dL 0.1-1.1 BILI CONJ (test code = 3885291916) 0.0 mg/dL 0.0-0.3 T PROTEIN (test code = 2570041441) 7.1 g/dL 6.3-8.2 ALBUMIN (test code = 8041122202) 4.4 g/dL 3.5-5.0 ALK PHOS (test code = 5527719907) 88 U/L 34-122 ALTv (test code = 1742-6) 40 U/L 5-50 AST(SGOT) (test code = 9112343092) 38 U/L 13-40 Lab Interpretation (test code = Normal 98540-6) [facility] METABOLIC PANEL (NA, K, CL, CO2, GLUCOSE, BUN, CREATININE, CA)2021-05-08 01:11:57 Test Item Value Reference Range Interpretation Comments NA (test code = 134 mmol/L 135-145 L 3970576864) K (test code = 4.7 mmol/L 3.5-5.0 4328436263) CL (test code = 100 mmol/L 98-108 3705600453) CO2 TOTAL (test code = 24 mmol/L 23-31 3592201941) AGAP (test code = 2-16 0749191434) BUN (test code = 27 mg/dL 7-23 H 6972555382) GLUCOSE (test code = 94 mg/dL 70-110 7848766763) CREATININE (test code = 1.31 mg/dL 0.60-1.25 H 2869700251) CALCIUM (test code = 9.5 mg/dL 8.6-10.6 6656367063) eGFR (test code = mL/min/1.73m2 3260722670) GILBERTO (test code = GILBERTO) Association of Glomerular Filtration Rate (GFR) and Staging of Kidney Disease* + --+ --+ ------+| GFR (mL/min/1.73 m2) ?| With Kidney Damage ?| ?Without Kidney Damage+ --------+ --------+ +| ?>90 ?| ?Stage one ?| ? Normal ?+ ---+ ---+ -------+| ?60-89 ?| ?Stage two ?| ? Decreased GFR ? + --+ --+ ------+| ?30-59 ?| ?Stage three ?| ? Stage three ? + --+ --+ ------+| ?15-29 ?| ?Stage four ? | ? Stage four ?+ ---+ ---+ -------+| ?<15 (or dialysis) ? ?| ?Stage five ? | ? Stage five ?+ ---+ ---+ -------+ *Each stage assumes the associated GFR level has been in effect for at least three months. ?Stages 1 to 5, with or without kidney disease, indicate chronic kidney disease. Notes: Determination of stages one and two (with eGFR >59mL/min/1.73 m2) requires estimation of kidney damage for at least three months as defined by structural or functional abnormalities of the kidney, manifested by either:Pathological abnormalities or Markers of kidney damage (including abnormalities in the composition of the blood or urine or abnormalities in imaging tests). Lab Interpretation Abnormal (test code = 17107-6) [facility]06040[facility] (ALB,T.PRO,BILI T,BU/BC,ALT,AST,ALK PHOS)2021-05-08 01:11:57 Test Item Value Reference Range Interpretation Comments TOTAL BILI (test code = 7286433724) 0.8 mg/dL 0.1-1.1 BILI UNCON (test code = 3061619543) 0.2 mg/dL 0.1-1.1 BILI CONJ (test code = 1879701499) 0.0 mg/dL 0.0-0.3 T PROTEIN (test code = 0990699474) 7.1 g/dL 6.3-8.2 ALBUMIN (test code = 5502708796) 4.4 g/dL 3.5-5.0 ALK PHOS (test code = 8685636871) 88 U/L 34-122 ALTv (test code = 1742-6) 40 U/L 5-50 AST(SGOT) (test code = 4701991995) 38 U/L 13-40 Lab Interpretation (test code = Normal 73233-9) [facility] [id number] 00:59:56 Test Item Value Reference Range Interpretation Comments WBC (test code = See_Comment [Automated 6590-2) message] The sy stem which generated this result transmitted reference range : 4.20 - 10.70 10*3/?L. The reference range was not used to interpret this result as normal/abnormal . RBC (test code = See_Comment L [Automated 579-8) message] The sy stem which generated this result transmitted reference range : 4.26 - 5.52 10*6/?L. The reference range was not used to interpret this result as normal/abnormal . HGB (test code = 12.3 g/dL 12.2-16.4 718-7) HCT (test code = 37.1 % 38.4-49.3 L 4544-3) MCV (test code = 92.1 fL 81.7-95.6 787-2) MCH (test code = 30.5 pg 26.1-32.7 785-6) MCHC (test code = 33.2 g/dL 31.2-35.0 786-4) RDW-SD (test code = 46.9 fL 38.5-51.6 48983-9) RDW-CV (test code = 13.9 % 12.1-15.4 788-0) PLT (test code = See_Comment [Automated 777-3) message] The sy stem which generated this result transmitted reference range : 150 - 328 10*3/ ?L. The reference r meredith was not used to interpret this result as normal/abnormal . MPV (test code = 10.0 fL 9.8-13.0 98879-4) NRBC/100 WBC (test See_Comment [Automat ed code = 0819061634) message] The system which generated this result transmitted reference range : 0.0 - 10.0 /100 WBCs. The refer ence range was not u sed to interpret th is result as normal/abnormal . NRBC x10^3 (test code <0.01 See_Comment [Auto mated = 9126241324) message] The s ystem which generated this result transmitted reference range : 10*3/?L. The reference range was not used to interpret this result as normal/abnormal . GRAN MAT (NEUT) % 53.9 % (test code = 770-8) IMM GRAN % (test code 0.30 % = 3104111656) LYMPH % (test code = 32.0 % 736-9) MONO % (test code = 11.6 % 5905-5) EOS % (test code = 1.6 % 713-8) BASO % (test code = 0.6 % 706-2) GRAN MAT x10^3(ANC) 3.67 10*3/uL 1.99-6.95 (test code = 5591814168) IMM GRAN x10^3 (test <0.03 0.00-0.06 code = 2809820922) LYMPH x10^3 (test code 2.18 10*3/uL 1.09-3.23 = 731-0) MONO x10^3 (test code 0.79 10*3/uL 0.36-1.02 = 742-7) EOS x10^3 (test code = 0.11 10*3/uL 0.06-0.53 711-2) BASO x10^3 (test code 0.04 10*3/uL 0.01-0.09 = 704-7) Lab Interpretation Abnormal (test code = 69656-0) [facility] WITH [id number] 00:59:56 Test Item Value Reference Range Interpretation Comments WBC (test code = See_Comment [Automated 6690-2) message] The sy stem which generated this result transmitted reference range : 4.20 - 10.70 10*3/?L. The reference range was not used to interpret this result as normal/abnormal . RBC (test code = See_Comment L [Automated 789-8) message] The sy stem which generated this result transmitted reference range : 4.26 - 5.52 10*6/?L. The reference range was not used to interpret this result as normal/abnormal . HGB (test code = 12.3 g/dL 12.2-16.4 718-7) HCT (test code = 37.1 % 38.4-49.3 L 4544-3) MCV (test code = 92.1 fL 81.7-95.6 787-2) MCH (test code = 30.5 pg 26.1-32.7 785-6) MCHC (test code = 33.2 g/dL 31.2-35.0 786-4) RDW-SD (test code = 46.9 fL 38.5-51.6 26794-4) RDW-CV (test code = 13.9 % 12.1-15.4 788-0) PLT (test code = See_Comment [Automated 777-3) message] The sy stem which generated this result transmitted reference range : 150 - 328 10*3/ ?L. The reference r meredith was not used to interpret this result as normal/abnormal . MPV (test code = 10.0 fL 9.8-13.0 04074-3) NRBC/100 WBC (test See_Comment [Automat ed code = 0090197729) message] The system which generated this result transmitted reference range : 0.0 - 10.0 /100 WBCs. The refer ence range was not u sed to interpret th is result as normal/abnormal . NRBC x10^3 (test code <0.01 See_Comment [Auto mated = 0274701921) message] The s ystem which generated this result transmitted reference range : 10*3/?L. The reference range was not used to interpret this result as normal/abnormal . GRAN MAT (NEUT) % 53.9 % (test code = 770-8) IMM GRAN % (test code 0.30 % = 5616685627) LYMPH % (test code = 32.0 % 736-9) MONO % (test code = 11.6 % 5905-5) EOS % (test code = 1.6 % 713-8) BASO % (test code = 0.6 % 706-2) GRAN MAT x10^3(ANC) 3.67 10*3/uL 1.99-6.95 (test code = 9428912344) IMM GRAN x10^3 (test <0.03 0.00-0.06 code = 2797887434) LYMPH x10^3 (test code 2.18 10*3/uL 1.09-3.23 = 731-0) MONO x10^3 (test code 0.79 10*3/uL 0.36-1.02 = 742-7) EOS x10^3 (test code = 0.11 10*3/uL 0.06-0.53 711-2) BASO x10^3 (test code 0.04 10*3/uL 0.01-0.09 = 704-7) Lab Interpretation Abnormal (test code = 74842-9) [facility] W/AUTO [id number] 09:20:00 Test Item Value Reference Range Interpretation Comments WHITE BLOOD CELL (test code = 3.8 x10 3/uL 4.5-11.0 L WBC) RED BLOOD CELL (test code = 3.94 x10 6/uL 4.00-5.60 L RBC) HEMOGLOBIN (test code = HGB) 12.1 g/dL 12.5-16.9 L HEMATOCRIT (test code = HCT) 38.2 % 37.5-50.7 N MEAN CELL VOLUME (test code = 97.0 fL 81.0-99.0 N MCV) MEAN CELL HGB (test code = MCH) 30.7 pg 27.0-33.0 N MEAN CELL HGB CONCETRATION 31.7 g/dL 33.0-37.0 L (test code = MCHC) RED CELL DISTRIBUTION WIDTH CV 13.4 % 11.5-14.5 N (test code = RDW) RED CELL DISTRIBUTION WIDTH SD 48.2 fL 37.0-54.0 N (test code = RDW-SD) PLATELET COUNT (test code = 209 x10 3/uL 150-400 N PLT) MEAN PLATELET VOLUME (test code 10.2 fL 7.0-9.0 H = MPV) NEUTROPHIL % (test code = NT%) 51.3 % 56.0-77.0 L IMMATURE GRANULOCYTE % (test 0.3 % 0.0-2.0 N code = IG%) LYMPHOCYTE % (test code = LY%) 34.1 % 14.0-32.0 H MONOCYTE % (test code = MO%) 10.7 % 4.8-9.0 H EOSINOPHIL % (test code = EO%) 3.1 % 0.3-3.7 N BASOPHIL % (test code = BA%) 0.5 % 0.0-2.0 N NUCLEATED RBC % (test code = 0.0 % 0-0 N NRBC%) NEUTROPHIL # (test code = NT#) 1.97 x10 3/uL 2.0-7.6 L IMMATURE GRANULOCYTE # (test 0.01 x10 3/uL 0.00-0.03 N code = IG#) LYMPHOCYTE # (test code = LY#) 1.31 x10 3/uL 1.0-3.8 N MONOCYTE # (test code = MO#) 0.41 x10 3/uL 0.1-0.8 N EOSINOPHIL # (test code = EO#) 0.12 x10 3/uL 0.0-0.2 N BASOPHIL # (test code = BA#) 0.02 x10 3/uL 0.0-0.2 N NUCLEATED RBC # (test code = 0.00 x10 3/uL 0.0-0.1 N NRBC#) MANUAL DIFF REQUIRED (test code NO = MDIFF) CBC W/AUTO [id number] 08:59:00 Test Item Value Reference Range Interpretation Comments WHITE BLOOD CELL (test code = x10 3/uL 4.5-11.0 WBC) RED BLOOD CELL (test code = RBC) x10 6/uL 4.00-5.60 HEMOGLOBIN (test code = HGB) g/dL 12.5-16.9 HEMATOCRIT (test code = HCT) 38.2 % 37.5-50.7 N MEAN CELL VOLUME (test code = fL 81.0-99.0 MCV) MEAN CELL HGB (test code = MCH) pg 27.0-33.0 MEAN CELL HGB CONCETRATION (test g/dL 33.0-37.0 code = MCHC) RED CELL DISTRIBUTION WIDTH CV % 11.5-14.5 (test code = RDW) PLATELET COUNT (test code = PLT) 209 x10 3/uL 150-400 N NEUTROPHIL % (test code = NT%) % 56.0-77.0 LYMPHOCYTE % (test code = LY%) % 14.0-32.0 NEUTROPHIL # (test code = NT#) x10 3/uL 2.0-7.6 LYMPHOCYTE # (test code = LY#) x10 3/uL 1.0-3.8 MANUAL DIFF REQUIRED (test code = MDIFF) BASIC METABOLIC [id number] 08:21:00 Test Item Value Reference Range Interpretation Comments SODIUM (test code = NA) 144 mEq/L 134-147 N POTASSIUM (test code = 3.9 mEq/L 3.4-5.0 N K) CHLORIDE (test code = 111 mEq/L 100-108 H CL) CARBON DIOXIDE (test 26 mEq/l 21-33 N code = CO2) ANION GAP (test code = 11 0-20 N GAP) GLUCOSE (test code = 76 mg/dL 70-110 N GLU) BLOOD UREA NITROGEN 8 mg/dL 7-18 (test code = BUN) GLOMERULAR FILTRATION 63.8 90-95 L Units of measure = RATE (test code = GFR) ml/mi n/1.73 m2 CREATININE (test code = 1.2 mg/dL 0.6-1.3 N CREAT) CALCIUM (test code = 8.4 mg/dL 8.0-10.5 N CA) BASIC METABOLIC [id number] 08:34:00 Test Item Value Reference Range Interpretation Comments SODIUM (test code = NA) 143 mEq/L 134-147 N POTASSIUM (test code = 3.9 mEq/L 3.4-5.0 N K) CHLORIDE (test code = 110 mEq/L 100-108 H CL) CARBON DIOXIDE (test 25 mEq/l 21-33 N code = CO2) ANION GAP (test code = 12 0-20 N GAP) GLUCOSE (test code = 78 mg/dL 70-110 N GLU) BLOOD UREA NITROGEN 17 mg/dL 7-18 N (test code = BUN) GLOMERULAR FILTRATION 58.2 90-95 L Units of measure = RATE (test code = GFR) ml/mi n/1.73 m2 CREATININE (test code = 1.3 mg/dL 0.6-1.3 N CREAT) CALCIUM (test code = 8.4 mg/dL 8.0-10.5 N CA) CBC W/AUTO [id number] 07:41:00 Test Item Value Reference Range Interpretation Comments WHITE BLOOD CELL (test code = 3.6 x10 3/uL 4.5-11.0 L WBC) RED BLOOD CELL (test code = 3.73 x10 6/uL 4.00-5.60 L RBC) HEMOGLOBIN (test code = HGB) 11.5 g/dL 12.5-16.9 L HEMATOCRIT (test code = HCT) 36.4 % 37.5-50.7 L MEAN CELL VOLUME (test code = 97.6 fL 81.0-99.0 N MCV) MEAN CELL HGB (test code = MCH) 30.8 pg 27.0-33.0 N MEAN CELL HGB CONCETRATION 31.6 g/dL 33.0-37.0 L (test code = MCHC) RED CELL DISTRIBUTION WIDTH CV 13.5 % 11.5-14.5 N (test code = RDW) RED CELL DISTRIBUTION WIDTH SD 48.8 fL 37.0-54.0 N (test code = RDW-SD) PLATELET COUNT (test code = 210 x10 3/uL 150-400 N PLT) MEAN PLATELET VOLUME (test code 10.2 fL 7.0-9.0 H = MPV) NEUTROPHIL % (test code = NT%) 46.5 % 56.0-77.0 L IMMATURE GRANULOCYTE % (test 0.3 % 0.0-2.0 N code = IG%) LYMPHOCYTE % (test code = LY%) 39.4 % 14.0-32.0 H MONOCYTE % (test code = MO%) 9.8 % 4.8-9.0 H EOSINOPHIL % (test code = EO%) 3.4 % 0.3-3.7 N BASOPHIL % (test code = BA%) 0.6 % 0.0-2.0 N NUCLEATED RBC % (test code = 0.0 % 0-0 N NRBC%) NEUTROPHIL # (test code = NT#) 1.67 x10 3/uL 2.0-7.6 L IMMATURE GRANULOCYTE # (test 0.01 x10 3/uL 0.00-0.03 N code = IG#) LYMPHOCYTE # (test code = LY#) 1.41 x10 3/uL 1.0-3.8 N MONOCYTE # (test code = MO#) 0.35 x10 3/uL 0.1-0.8 N EOSINOPHIL # (test code = EO#) 0.12 x10 3/uL 0.0-0.2 N BASOPHIL # (test code = BA#) 0.02 x10 3/uL 0.0-0.2 N NUCLEATED RBC # (test code = 0.00 x10 3/uL 0.0-0.1 N NRBC#) MANUAL DIFF REQUIRED (test code NO = MDIFF) UA RFLX MICR CULT IF [id number] 10:10:00 Test Item Value Reference Range Interpretation Comments UA COLOR (test code = COLU) YELLOW YEL/STRAW UA APPEARANCE (test code = CLEAR CLEAR APPU) UA GLUCOSE DIPSTICK (test code NEGATIVE NEGATIVE = DGLUU) UA BILIRUBIN DIPSTICK (test NEGATIVE NEGATIVE code = BILU) UA KETONE DIPSTICK (test code NEGATIVE NEGATIVE = KETU) UA SPECIFIC GRAVITY (test code 1.048 1.005-1.030 H = SGU) UA BLOOD DIPSTICK (test code = NEGATIVE NEGATIVE LYNETTE) UA PH DIPSTICK (test code = 5.0 5.0-7.0 N OWEN) UA PROTEIN DIPSTICK (test code NEGATIVE NEGATIVE = PROU) UA UROBILINIOGEN DIPSTICK 0.2 mg/dL 0.2-1.0 (test code = URO) UA NITRITE DIPSTICK (test code NEGATIVE NEGATIVE = ERIN) UA LEUKOCYTE ESTERASE DIPSTICK NEGATIVE NEGATIVE (test code = LEUU) UA WBC (test code = WBCU) 0-3 WBC/HPF 0-3 UA RBC (test code = RBCU) 4-10 RBC/HPF 0-3 UA WBC NO REFLEX (test code = 0-3 WBC/HPF 0-3 WBCUCL) UA BACTERIA (test code = BACU) NONE SEEN /HPF NONE SEEN UA SQUAMOUS CELLS (test code = 0-5 /HPF NONE SEEN SQU) UA CALCIUM OXALATE CRYSTALS TRACE /HPF NONE SEEN (test code = CAOXU) UA MUCUS (test code = MUCU) 1+ /LPF NONE SEEN Indication for culture: Dysuria/Frequency Gross Hematuria Flank Pain RiskForSepsis-no oth src Suprapubic Pain Temperature > 100.4 FSpecimen Description: [facility] [id number] 04:13:00 Test Item Value Reference Range Interpretation Comments SODIUM (test code = NA) 141 mEq/L 134-147 N POTASSIUM (test code = 4.0 mEq/L 3.4-5.0 N K) CHLORIDE (test code = 109 mEq/L 100-108 H CL) CARBON DIOXIDE (test 27 mEq/l 21-33 N code = CO2) ANION GAP (test code = 9 0-20 N GAP) GLUCOSE (test code = 89 mg/dL 70-110 N GLU) BLOOD UREA NITROGEN 19 mg/dL 7-18 H (test code = BUN) GLOMERULAR FILTRATION 53.4 90-95 L Units of measure = RATE (test code = GFR) ml/mi n/1.73 m2 CREATININE (test code = 1.4 mg/dL 0.6-1.3 H CREAT) CALCIUM (test code = 9.1 mg/dL 8.0-10.5 N CA) Coronavirus 2019 nCoV [id number] 22:03:00 Test Item Value Reference Range Interpretation Comments Coronavirus 2019 Negative Negative Performed b y certified nCoV Bedside (backend tester at [place] [facility] code = CtrNegative res ults should [id number]) be treated as presumptive and, ifinconsis tent with clinical signs and symptoms or necessaryfor patient management, fifi uld be tested with an alternativemole cular assay. Negative result s do not preclude LKIQ-IuL-1nljok tion and should not be u sed as the sole basis forp atient management deci sions. Negative result s should beconsidered in the context of a patient's recent exposures,histo ry, presence of clinical sig ns and symptoms consis tentwith COVID-19. CBC W/AUTO [id number] 21:11:00 Test Item Value Reference Range Interpretation Comments WHITE BLOOD CELL (test code = WBC) 5.9 K/uL 3.5-11.0 N RED BLOOD CELL (test code = RBC) 3.89 M/uL 4.00-5.60 L HEMOGLOBIN (test code = HGB) 12.0 GM/DL 12.5-16.9 L HEMATOCRIT (test code = HCT) 35.8 % 40.0-54.0 L MEAN CELL VOLUME (test code = MCV) 92.0 fL 81.0-99.0 N MEAN CELL HGB (test code = MCH) 30.8 pg 27.0-31.0 N MEAN CELL HGB CONCETRATION (test 33.5 GM/DL 33.0-37.0 N code = MCHC) RED CELL DISTRIBUTION WIDTH CV 14.2 % 11.5-14.5 N (test code = RDW) PLATELET COUNT (test code = PLT) 206 K/mm3 150-400 N MEAN PLATELET VOLUME (test code = 10.4 FL 8.8-13.1 N MPV) NEUTROPHIL % (test code = NT%) 52.7 % 40.0-76.0 N LYMPHOCYTE % (test code = LY%) 36.5 % 15.0-40.0 N MIXED % (test code = MX%) 10.8 % 3.0-15.0 N NEUTROPHIL # (test code = NT#) 3.1 K/uL 1.8-7.6 N LYMPHOCYTE # (test code = LY#) 2.2 K/uL 1.0-3.8 N MIXED # (test code = MX#) 0.6 k/mm3 0.1-0.8 N BASIC METABOLIC [id number] 19:00:00 Test Item Value Reference Range Interpretation Comments SODIUM (test code = NA/ABG) 139 MEQ/L 134-147 N POTASSIUM (test code = K/ABG) 4.3 MEQ/L 3.4-5.0 N CHLORIDE (test code = CL/ABG) 105 MEQ/L 100-108 N CREATININE ABG (test code = 1.9 mg/dL 0.8-1.3 H CREAABG) POC IONIZED CALCIUM (test code = 1.12 MMOL/L 1.12-1.32 N POCCA) POC GLUCOSE (test code = POCGLU) 92 MG/DL - CT ABD PELVIS [id number] 00:00:00 [facility] 1970 Sex: MName: DORA JOSEPH FSED : 1970 Age/S: 51 / M [address] [facility] Unit #: [id number] Loc: [facility] [address] Phys: Marcello Benoit MD Acct: [id number] Dis Date: Status: KISHOR ER PHONE #: Exam Date: 04/28/2021 1914 FAX #: Reason: epigastric and LLQ pain, R-sided colostomy EXAMS: CPT CODE: [id number] CT ABD PELVIS W/CONT [id number] PROCEDURE INFORMATION: Exam: CT Abdomen And Pelvis With Contrast Exam date and time: 04/28/2021 7:11 PM Age: 51 years old Clinical indication: Abdominal pain; Additional info: Epigastric and llq pain, r-sided colostomy TECHNIQUE: Imaging protocol: Computed tomography of the abdomen and pelvis with contrast. Radiation optimization: All CT scans at this facility use at least one of these dose optimization techniques: automated exposure control; mA and/orkV adjustment per patient size (includes targeted exams where dose is matched to clinical indication); or iterative reconstruction. Contrast material: ISOVUE 300; Contrast volume: 100 ml; Contrast route: INTRAVENOUS (IV); Other technique: CT radiation dose DLP (MGY-CM) : 838.32 COMPARISON: CT ABD PELVIS W/CONT 02/23/2020 8:43 PM FINDINGS: Lungs: Mild compressive atelectasis left base. Additional bandlike opacities in the lower lung zones compatible with subsegmental atelectasis or scarring. There is no consolidation. Diaphragm: Stable elevation left hemidiaphragm. 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 The remaining right lobe of liver is unremarkable. The portal venous system is patent. Gallbladder and bile ducts: The gallbladder is contracted, otherwise unremarkable. There is no biliary dilatation. Pancreas: Normal. No ductal dilation. Spleen: Normal. No splenomegaly. Adrenal glands: Normal. No mass. Kidneys and ureters: Normal. No hydronephrosis. Stomach and bowel: The stomach is unremarkable. There is subjective mucosal prominence/wall thickening throughout the small bowel without pathologic dilatation. Interval subtotal colectomy with right lower quadrant ileostomy. Unremarkable Aaron's pouch. Appendix: No evidence of appendicitis. Intraperitoneal space: There is no free intraperitoneal fluid or air. No focal fluid collection. Vasculature: There is mild atherosclerotic calcification of the coronary arteries. The aorta demonstrates mild atherosclerotic calcification. Lymph nodes: Unremarkable. No enlarged lymph nodes. Urinary bladder: Urinary bladder is contracted otherwise unremarkable. PAGE 1 Signed Report (CONTINUED) Name: DORA JOSEPH FS : 1970 Age/S: 51 / M [address] [facility] Unit #: [id number] Loc: [facility] [address] Phys: Marcello Benoit MD Acct: [id number] Dis Date: Status: REG ER PHONE #: Exam Date: 04/28/20211913 FAX #: Reason: epigastricand LLQ pain, R-sided colostomy EXAMS: CPT CODE: [id number] CT ABD PELVIS W/CONT 70751 <Continued> Reproductive: Unremarkable as visualized. Bones/joints: Unremarkable. No acute fracture. Soft tissues: Unremarkable. IMPRESSION: 1. 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 2. Mild long segment bowel wall thickening/mucosal prominence compatible with an enteritis. No evidence for obstruction. at 1956 Reported and signed by: Hector Nichols M.D. CC: Marcello Benoit MD Technologist:RT Wicho(R)(CT) CTDI: DLP: Trnscb Date/Time: 04/28/2021 (1955) IsabelaL Orig Print D/T: S: 04/28/2021 (1955) PAGE 2 Signed ReportBasic Metabolic Panel (NA, K, CL, CO2, GLUCOSE, BUN, CREATININE, CA)2020-08-23 10:29:00 Test Item Value Reference Range Interpretation Comments NA (test code = 139 mmol/L 135-145 7844056424) K (test code = 4.0 mmol/L 3.5-5 7886194659) CL (test code = 108 mmol/L 98-108 0105900953) CO2 TOTAL (test code = 22 mmol/L 23-31 L 0328042508) AGAP (test code = 2-16 0171120764) BUN (test code = 25 mg/dL 7-23 H 2449552626) GLUCOSE (test code = 91 mg/dL 70-110 3986540780) CREATININE (test code = 1.14 mg/dL 0.6-1.25 4712819283) CALCIUM (test code = 8.9 mg/dL 8.6-10.6 6099988246) eGFR Calculation mL/min/1.73m2 (Non-) (test code = 0811217353) eGFR Calculation mL/min/1.73m2 () (test code = 9128369514) GILBERTO (test code = GILBERTO) Association of Glomerular Filtration Rate (GFR) and Staging of Kidney Disease* + --+ --+ ------+| GFR (mL/min/1.73 m2) ?| With Kidney Damage ?| ?Without Kidney Damage+ --------+ --------+ +| ?>90 ?| ?Stage one ?| ? Normal ?+ ---+ ---+ -------+| ?60-89 ?| ?Stage two ?| ? Decreased GFR ? + --+ --+ ------+| ?30-59 ?| ?Stage three ?| ? Stage three ? + --+ --+ ------+| ?15-29 ?| ?Stage four ? | ? Stage four ?+ ---+ ---+ -------+| ?<15 (or dialysis) ? ?| ?Stage five ? | ? Stage five ?+ ---+ ---+ -------+ *Each stage assumes the associated GFR level has been in effect for at least three months. ?Stages 1 to 5, with or without kidney disease, indicate chronic kidney disease. Notes: Determination of stages one and two (with eGFR >59mL/min/1.73 m2) requires estimation of kidney damage for at least three months as defined by structural or functional abnormalities of the kidney, manifested by either:Pathological abnormalities or Markers of kidney damage (including abnormalities in the composition of the blood or urine or abnormalities in imaging tests). Lab Interpretation Abnormal (test code = 97849-1) [facility] / [id number] 10:13:00 Test Item Value Reference Range Interpretation Comments WBC (test code = 6690-2) See_Comment [A utomated message] The system [employer] generated this result transmit dain reference range : 4.20 - 10.70 10*3/?L. The reference range was not used to interpret this result as normal/abnormal . RBC (test code = 789-8) See_Comment L [Au tomated message] The system [employer] generated this result transmit dain reference range : 4.26 - 5.52 10* 6/?L. The reference r meredith was not used to interpret this result as normal/abnormal . HGB (test code = 718-7) 11.6 g/dL 12.2-16.4 L HCT (test code = 4544-3) 36.1 % 38.4-49.3 L MCH (test code = 785-6) 28.0 pg 26.1-32.7 MCV (test code = 787-2) 87.2 fL 81.7-95.6 MCHC (test code = 786-4) 32.1 g/dL 31.2-35 PLT (test code = 777-3) See_Comment [Au tomated message] The system [employer] generated this result transmit dain reference range : 150 - 328 10*3/?L. The reference range was not used to interpret this result as normal/abnormal . MPV (test code = 9.0 fL 9.8-13 L 44318-1) RDW-CV (test code = 18.7 % 12.1-15.4 H 788-0) RDW-SD (test code = 59.7 fL 38.5-51.6 H 70623-4) NRBC x10^3 (test code = <0.01 See_Comment [Au tomated message] 0813091235) The system [employer] h generated this result transmit dain reference range : 10*3/?L. The reference range was not used to interpret this result as normal/abnormal . NRBC/100 WBC (test code See_Comment [Au tomated message] = 8733362063) The system [employer] ch generated this result transmit dain reference range : 0.0 - 10.0 /100 WBC s. The reference r meredith was not used to interpret this result as normal/abnormal . IPF % (test code = 5739783186) Lab Interpretation (test Abnormal code = 16146-0) [facility] Center[facility]OVID[facility] (ID NOW RAPID TESTING)2020-08-23 00:56:00 Test Item Value Reference Range Interpretation Comments SARS-CoV-2 Rapid ID NOW Not Detected Not Detected (test code = 85904-3) GILBERTO (test code = GILBERTO) ID NOW COVID-19 Assay is an isothermal nucleic acid amplification test intended for the qualitative detection of nucleic acid from SARS-CoV-2 viral RNA in nasopharyngeal (HUMAN GEOGRAPHY INSTRUCTOR) specimens. It is used under Emergency Use Authorization (EUA) by FDA. The limit of detection (LOD) of the assay is 125 Genome Equivalents/mL. A positive result is indicative of the presence of SARS-CoV-2 RNA. ?Clinical correlation with patient history and other diagnostic information is necessary to determine patient infection status. A negative (Not Detected) result does not preclude SARS-CoV-2 infection. In patients with clinical symptoms and other tests that are consistent with SARS-CoV-2 infection, negative results should be treated as presumptive negative and a new specimen should be tested with alternative PCR molecular test. Invalid: Please collect a new specimen for repeat patient testing if clinically indicated. Lab Interpretation Normal (test code = 57897-1) [facility] Metabolic Panel (NA, K, CL, CO2, GLUCOSE, BUN, CREATININE, CA)2020-08-22 22:36:00 Test Item Value Reference Range Interpretation Comments NA (test code = 133 mmol/L 135-145 L 3186955174) K (test code = 4.5 mmol/L 3.5-5 8564619635) CL (test code = 104 mmol/L 98-108 9286215716) CO2 TOTAL (test code = 25 mmol/L 23-31 0527579818) AGAP (test code = 2-16 2641122568) BUN (test code = 27 mg/dL 7-23 H 4941874110) GLUCOSE (test code = 94 mg/dL 70-110 0815327125) CREATININE (test code = 1.33 mg/dL 0.6-1.25 H 8735535226) CALCIUM (test code = 9.5 mg/dL 8.6-10.6 4808655541) eGFR Calculation mL/min/1.73m2 (Non-) (test code = 9052230399) eGFR Calculation mL/min/1.73m2 () (test code = 4798071253) GILBERTO (test code = GILBERTO) Association of Glomerular Filtration Rate (GFR) and Staging of Kidney Disease* + --+ --+ ------+| GFR (mL/min/1.73 m2) ?| With Kidney Damage ?| ?Without Kidney Damage+ --------+ --------+ +| ?>90 ?| ?Stage one ?| ? Normal ?+ ---+ ---+ -------+| ?60-89 ?| ?Stage two ?| ? Decreased GFR ? + --+ --+ ------+| ?30-59 ?| ?Stage three ?| ? Stage three ? + --+ --+ ------+| ?15-29 ?| ?Stage four ? | ? Stage four ?+ ---+ ---+ -------+| ?<15 (or dialysis) ? ?| ?Stage five ? | ? Stage five ?+ ---+ ---+ -------+ *Each stage assumes the associated GFR level has been in effect for at least three months. ?Stages 1 to 5, with or without kidney disease, indicate chronic kidney disease. Notes: Determination of stages one and two (with eGFR >59mL/min/1.73 m2) requires estimation of kidney damage for at least three months as defined by structural or functional abnormalities of the kidney, manifested by either:Pathological abnormalities or Markers of kidney damage (including abnormalities in the composition of the blood or urine or abnormalities in imaging tests). Lab Interpretation Abnormal (test code = 76256-7) [facility] (ALB, T.PRO, BILI T, BU/BC, ALT, AST, ALK PHOS)2020-08-22 22:36:00 Test Item Value Reference Range Interpretation Comments TOTAL BILI (test code = 7881519935) 0.4 mg/dL 0.1-1.1 BILI UNCON (test code = 6896520171) 0.1 mg/dL 0.1-1.1 BILI CONJ (test code = 4323822680) 0.0 mg/dL 0-0.3 T PROTEIN (test code = 2000153032) 6.8 g/dL 6.3-8.2 ALBUMIN (test code = 6678791961) 4.0 g/dL 3.5-5 ALK PHOS (test code = 0959363569) 78 U/L 34-122 ALTv (test code = 1742-6) 35 U/L 5-50 AST(SGOT) (test code = 2023549076) 29 U/L 13-40 Lab Interpretation (test code = Normal 10198-8) [facility] CenterCB with [id number] 22:15:00 Test Item Value Reference Range Interpretation Comments WBC (test code = See_Comment [Automated 3090-2) message] The sy stem which generated this result transmitted reference range : 4.20 - 10.70 10*3/?L. The reference range was not used to interpret this result as normal/abnormal . RBC (test code = See_Comment L [Automated 789-8) message] The sy stem which generated this result transmitted reference range : 4.26 - 5.52 10*6/?L. The reference range was not used to interpret this result as normal/abnormal . HGB (test code = 12.0 g/dL 12.2-16.4 L 718-7) HCT (test code = 36.9 % 38.4-49.3 L 4544-3) MCV (test code = 87.0 fL 81.7-95.6 787-2) MCH (test code = 28.3 pg 26.1-32.7 785-6) MCHC (test code = 32.5 g/dL 31.2-35 786-4) RDW-SD (test code = 60.6 fL 38.5-51.6 H 69483-2) RDW-CV (test code = 19.0 % 12.1-15.4 H 788-0) PLT (test code = See_Comment [Automated 777-3) message] The sy stem which generated this result transmitted reference range : 150 - 328 10*3/ ?L. The reference r meredith was not used to interpret this result as normal/abnormal . MPV (test code = 9.3 fL 9.8-13 L 40324-7) NRBC/100 WBC (test See_Comment [Automat ed code = [id number]) message] The system which generated this result transmitted reference range : 0.0 - 10.0 /100 WBCs. The refer ence range was not u sed to interpret th is result as normal/abnormal . NRBC x10^3 (test code <0.01 See_Comment [Auto mated = [id number]) message] The s ystem which generated this result transmitted reference range : 10*3/?L. The reference range was not used to interpret this result as normal/abnormal . GRAN MAT (NEUT) % 58.6 % (test code = 770-8) IMM GRAN % (test code 0.60 % = [id number]) LYMPH % (test code = 28.2 % 736-9) MONO % (test code = 9.5 % 5905-5) EOS % (test code = 2.4 % 713-8) BASO % (test code = 0.7 % 706-2) GRAN MAT x10^3(ANC) 3.14 10*3/uL 1.99-6.95 (test code = [id number]) IMM GRAN x10^3 (test 0.03 10*3/uL 0-0.06 code = [id number]) LYMPH x10^3 (test code 1.51 10*3/uL 1.09-3.23 = 731-0) MONO x10^3 (test code 0.51 10*3/uL 0.36-1.02 = 742-7) EOS x10^3 (test code = 0.13 10*3/uL 0.06-0.53 711-2) BASO x10^3 (test code 0.04 10*3/uL 0.01-0.09 = 704-7) Lab Interpretation Abnormal (test code = 25948-9) [facility] [id number] 00:47:10Impression: 1. Patent aerodigestive tract.2. No discrete fluid collection or abscess is identified. RL: [id number] End of Report Exam: CT Neck With Contrast, 07/09/2020 5:30 PM. Ordering Physician: JUAN M CASTANEDA. History: Sore throat, difficulty swallowing. Technique: CT neck was obtained with intravenous contrast. ?CT wasperformed according to ALARA (As Low As Reasonably Achievable). Comparison: None. Findings: Aerodigestive tract is patent. Oral and nasal cavity structures are withinnormal limits. Nasopharynx is normal. Oropharynx is normal. Hypopharynx isnormal. Parapharyngeal spaces are normal. Retropharyngeal space is normal.Larynx is normal. No abnormally enlarged lymph nodes are seen. No discrete fluid collectionor abscess is identified. Major blood vessels of the neck, including thecarotid arteries and jugular veins, are patent. Parotid and submandibular glands are normal. Thyroid gland is unremarkable. Metal Drilling Machine Operator spaces are normal. Buccal spaces are normal. Visualizedparanasal sinuses are clear. There is no significant mastoid air cellopacification. Visualized intracranial contents are unremarkable. Visualized esophagus, trachea, and superior mediastinum are within normallimits. Visualized lungs are clear. There are degenerative changes of the spine. 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 [facility], Radiant Results Inft User - 07/09/2020 6:48 PM CSTExam: CT Neck With Contrast, 07/09/2020 5:30 PM.Ordering Physician: JUAN M CASTANEDA.History: Sore throat, difficulty swallowing.Technique: CT neck was obtained with intravenous contrast. CT wasperformed according to ALARA (As Low As Reasonably Achievable).Comparison: None.Findings: Aerodigestive tract is patent. Oral and nasal cavity structures are withinnormal limits. Nasopharynx is normal. Oropharynx is normal. Hypopharynx isnormal. Parapharyngeal spaces are normal. Retropharyngeal space is normal.Larynx is normal. No abnormally enlarged lymph nodes are seen. No discrete fluid collectionor abscess is identified. Major blood vessels of the neck, including thecarotid arteries and jugular veins, are patent.Parotid and submandibular glands are normal. Thyroid gland is unremarkable.Metal Drilling Machine Operator spaces are normal. Buccal spaces are normal. Vi sualizedparanasal sinuses are clear. There is no significant mastoid air cellopacification. Visualized intracranial contents are unremarkable.Visualized esophagus, trachea, and superior mediastinum arewithin normallimits. Visualized lungs are clear. There are degenerative changes of the spine. 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 Patent aerodigestive tract.2. No discrete fluid collection or abscess is identified.RL: [id number] of Report UnTexas [facility] WorthCOVID-19 (ID NOW RAPID TESTING)2020-07-09 23:23:00 Test Item Value Reference Range Interpretation Comments SARS-CoV-2 Rapid ID NOW Not Detected Not Detected (test code = 75270-2) GILBERTO (test code = GILBERTO) ID NOW COVID-19 Assay is an isothermal nucleic acid amplification test intended for the qualitative detection of nucleic acid from SARS-CoV-2 viral RNA in nasopharyngeal (HUMAN GEOGRAPHY INSTRUCTOR) specimens. It is used under Emergency Use Authorization (EUA) by FDA. The limit of detection (LOD) of the assay is 125 Genome Equivalents/mL. A positive result is indicative of the presence of SARS-CoV-2 RNA. ?Clinical correlation with patient history and other diagnostic information is necessary to determine patient infection status. A negative (Not Detected) result does not preclude SARS-CoV-2 infection. In patients with clinical symptoms and other tests that are consistent with SARS-CoV-2 infection, negative results should be treated as presumptive negative and a new specimen should be tested with alternative PCR molecular test. Invalid: Please collect a new specimen for repeat patient testing if clinically indicated. Lab Interpretation Normal (test code = 90875-7) [facility] Center[facility]ysis2020-[facility] 23:21:00 Test Item Value Reference Range Interpretation Comments APPEARANCE (test code = Clear Clear 2744793821) COLOR (test code = Yellow Yellow 6973389022) PH (test code = 4.8-8.0 4025095026) SP GRAVITY (test code = 1.003-1.030 5723402493) GLU U QUAL (test code = Normal Normal 1109058911) BLOOD (test code = Negative Negative 8557194432) KETONES (test code = Negative Negative 4768864111) PROTEIN (test code = 30 mg/dL Negative A 2887-8) UROBILIN (test code = Normal Normal 1499914668) BILIRUBIN (test code = Negative Negative 2797621737) NITRITE (test code = Negative Negative 3961372769) LEUK ROGER (test code = Negative Negative 1860953225) RBC/HPF (test code = <1 See_Comment [Autom ated message] 5387564330) The system [employer] generated this result transmitted ref erence range: 0 - 3 HP F. The reference range was not used to int erpret this result as normal/abnormal . WBC/HPF (test code = See_Comment [Autom ated message] 1428260114) The system [employer] generated this result transmitted ref erence range: 0 - 5 HP F. The reference range was not used to int erpret this result as normal/abnormal . BACTERIA (test code = Negative Negative 8287383535) MUCOUS (test code = Moderate Negative LPF A 5382601333) HYAL CAST (test code = See_Comment H [Aut omated message] 0119046942) The system [employer] generated this result transmitted ref erence range: <=2 LPF. The reference range was not used to int erpret this result as normal/abnormal . Lab Interpretation (test Abnormal code = 52206-8) [facility] (NA, K, CL, CO2, GLUCOSE, BUN, CREATININE, CA)2020-07-09 23:20:00 Test Item Value Reference Range Interpretation Comments NA (test code = 135 mmol/L 135-145 2427964487) K (test code = 3.9 mmol/L 3.5-5 3609169267) CL (test code = 107 mmol/L 98-108 2302228398) CO2 TOTAL (test code = 20 mmol/L 23-31 L 0906835745) AGAP (test code = 2-16 0138922469) BUN (test code = 27 mg/dL 7-23 H 0937550049) GLUCOSE (test code = 86 mg/dL 70-110 3507026300) CREATININE (test code = 1.11 mg/dL 0.6-1.25 3366841541) CALCIUM (test code = 9.0 mg/dL 8.6-10.6 7596846295) eGFR Calculation mL/min/1.73m2 (Non-) (test code = 5997447426) eGFR Calculation mL/min/1.73m2 () (test code = 9979920945) GILBERTO (test code = GILBERTO) Association of Glomerular Filtration Rate (GFR) and Staging of Kidney Disease* + --+ --+ ------+| GFR (mL/min/1.73 m2) ?| With Kidney Damage ?| ?Without Kidney Damage+ --------+ --------+ +| ?>90 ?| ?Stage one ?| ? Normal ?+ ---+ ---+ -------+| ?60-89 ?| ?Stage two ?| ? Decreased GFR ? + --+ --+ ------+| ?30-59 ?| ?Stage three ?| ? Stage three ? + --+ --+ ------+| ?15-29 ?| ?Stage four ? | ? Stage four ?+ ---+ ---+ -------+| ?<15 (or dialysis) ? ?| ?Stage five ? | ? Stage five ?+ ---+ ---+ -------+ *Each stage assumes the associated GFR level has been in effect for at least three months. ?Stages 1 to 5, with or without kidney disease, indicate chronic kidney disease. Notes: Determination of stages one and two (with eGFR >59mL/min/1.73 m2) requires estimation of kidney damage for at least three months as defined by structural or functional abnormalities of the kidney, manifested by either:Pathological abnormalities or Markers of kidney damage (including abnormalities in the composition of the blood or urine or abnormalities in imaging tests). Lab Interpretation Abnormal (test code = 81485-9) [facility] CenterRAPID STREP SCREEN FOR GROUP [id number] 23:11:00 Test Item Value Reference Range Interpretation Comments Streptococcus pyogenes (group A) Negative Negative antigen (test code = 50020-9) Lab Interpretation (test code = Normal 46613-7) [facility] with [id number] 23:02:00 Test Item Value Reference Range Interpretation Comments WBC (test code = See_Comment [Automated 6690-2) message] The sy stem which generated this result transmitted reference range : 4.20 - 10.70 10*3/?L. The reference range was not used to interpret this result as normal/abnormal . RBC (test code = See_Comment L [Automated 789-8) message] The sy stem which generated this result transmitted reference range : 4.26 - 5.52 10*6/?L. The reference range was not used to interpret this result as normal/abnormal . HGB (test code = 11.4 g/dL 12.2-16.4 L 718-7) HCT (test code = 34.3 % 38.4-49.3 L 4544-3) MCV (test code = 80.9 fL 81.7-95.6 L 787-2) MCH (test code = 26.9 pg 26.1-32.7 785-6) MCHC (test code = 33.2 g/dL 31.2-35 786-4) RDW-SD (test code = 55.5 fL 38.5-51.6 H 40844-6) RDW-CV (test code = 18.9 % 12.1-15.4 H 788-0) PLT (test code = See_Comment [Automated 777-3) message] The sy stem which generated this result transmitted reference range : 150 - 328 10*3/ ?L. The reference r meredith was not used to interpret this result as normal/abnormal . MPV (test code = 8.9 fL 9.8-13 L 12040-0) NRBC/100 WBC (test See_Comment [Automat ed code = 3377361532) message] The system which generated this result transmitted reference range : 0.0 - 10.0 /100 WBCs. The refer ence range was not u sed to interpret th is result as normal/abnormal . NRBC x10^3 (test code <0.01 See_Comment [Auto mated = 2341475780) message] The s ystem which generated this result transmitted reference range : 10*3/?L. The reference range was not used to interpret this result as normal/abnormal . GRAN MAT (NEUT) % 59.4 % (test code = 770-8) IMM GRAN % (test code 0.20 % = 2675511171) LYMPH % (test code = 29.9 % 736-9) MONO % (test code = 9.0 % 5905-5) EOS % (test code = 1.2 % 713-8) BASO % (test code = 0.3 % 706-2) GRAN MAT x10^3(ANC) 3.56 10*3/uL 1.99-6.95 (test code = 3642249633) IMM GRAN x10^3 (test <0.03 0-0.06 code = 9001871507) LYMPH x10^3 (test code 1.79 10*3/uL 1.09-3.23 = 731-0) MONO x10^3 (test code 0.54 10*3/uL 0.36-1.02 = 742-7) EOS x10^3 (test code = 0.07 10*3/uL 0.06-0.53 711-2) BASO x10^3 (test code <0.03 0.01-0.09 = 704-7) Lab Interpretation Abnormal (test code = 49055-9) [facility] CenterUrinalysis2020-10-13 13:37:00 Test Item Value Reference Range Interpretation Comments APPEARANCE (test code = Hazy Clear A 5371972059) COLOR (test code = Yellow Yellow 5708396245) PH (test code = 4.8-8.0 1881717817) SP GRAVITY (test code = 1.003-1.030 H 5072681190) GLU U QUAL (test code = Normal Normal 5228922836) BLOOD (test code = Negative Negative 8091355151) KETONES (test code = Negative Negative 9265816444) PROTEIN (test code = Negative Negative 2887-8) UROBILIN (test code = Normal Normal 8816722912) BILIRUBIN (test code = Negative Negative 3570538305) NITRITE (test code = Negative Negative 8782499473) LEUK ROGER (test code = Negative Negative 7202322551) RBC/HPF (test code = See_Comment H [Autom ated message] 5703768794) The system [employer] generated this result transmitted ref erence range: 0 - 3 HP F. The reference range was not used to int erpret this result as normal/abnormal . WBC/HPF (test code = See_Comment [Autom ated message] 7439025279) The system [employer] generated this result transmitted ref erence range: 0 - 5 HP F. The reference range was not used to int erpret this result as normal/abnormal . BACTERIA (test code = Negative Negative 0057471287) MUCOUS (test code = Moderate Negative LPF A 6327012855) CA OXALATE (test code = See_Comment [Au tomated message] 2625713402) The system [employer] generated this result transmitted ref erence range: <=1 HPF. The reference range was not used to int erpret this result as normal/abnormal . SPERM (test code = See_Comment H [Automat ed message] 3657043784) The system [employer] generated this result transmitted ref erence range: <=1 HPF. The reference range was not used to int erpret this result as normal/abnormal . HYAL CAST (test code = See_Comment H [Aut omated message] 4681004713) The system [employer] generated this result transmitted ref erence range: <=2 LPF. The reference range was not used to int erpret this result as normal/abnormal . Lab Interpretation (test Abnormal code = 08573-2) [facility] CenterCT [facility]BDOMEN PEL[facility] W [id number] 13:22:00CT Abdomen and Pelvis with intravenous contrast. CLINICAL HISTORY: Abdominal infection including peritonitis. DOSE: Up-to-date CT equipment and radiation dose reduction techniques wereemployed. CTDIvol: 4.89 mGy. DLP: 248 mGy-cm. TECHNIQUE : Contiguous axial imaging from the level of the lung basesthrough the pubic symphysis were performed after the uncomplicatedadministration of Omnipaque contrast material. Coronal and sagittalreconstructions were obtained. Auto mA and/or iterative reconstruction wereused to reduce radiation dose. FINDINGS: Comparison is made with 05/23/2020 study. Lower lungs: Left basal Pleural thickening with minimal left pleuraleffusion.Probable short sliding hiatal hernia. Liver, Gallbladder and Spleen: No focal lesions detected in the liver or inthe spleen. Gallbladder is collapsed with diffuse thickening of the lindsey. Peritoneum: ?Thickened soft tissues noted in the subdiaphragmatic spacebetween liver and the diaphragm could be scar tissue from prior infection.Pigtail catheter in the right anterior upper abdomen is in place surroundedby small amount of residual fluid. Small track of fluid is seen along themidline over to the left subdiaphragmatic region. Second pigtailcatheter in the left anterior subdiaphragmatic space appearsto have been discontinued since the previous study. Congested mesentery noted throughout abdomen with minimal fluid in theright paracolic gutter. Pancreas and Adrenals: ?Unremarkable pancreas and adrenal glands. Kidneys and Ureters: ?No visible calculi in the renal collecting systems. No hydroureter or hydronephrosis. Vessels: Normal. Retroperitoneum: No abnormal fluid or lymphadenopathy. Bowel: Ileostomy noted on the right side. Rectum andlower portion of thesigmoid noted with normal-appearing Aaron's pouch. Some of the small bowel loops are dilated which could be ileus. Bladder and Reproductive Organs: Thickened bladder lindsey could be due toincomplete luminal distention. Bones: Benign lesion in L4. Bone island in the neck of the right femur. Soft tissues: Unremarkable. CONCLUSION:1. Evidence of large bowel resection. Smith's pouch appears normal.Minimally congested mesenteric fat noted with minimal fluid in the rightparacolic gutter.2. Small amount of fluid along with scar tissue suspected surrounding theliver and spleen in the upper abdomen. Minimal left pleural effusion.Pigtail catheter in the right anterior abdominal good position.3. Functioning right-sided ileostomy.4. Enlarged prostate with central zone calcifications. Diffuse moderateenhancement of the right seminal vesicle noted which is unusual and ofunknown etiology. It could be a sign of infection. Left seminal vesicleshowed no significant enhancement. [facility], Radiant Results Inft User - 06/05/2020 8:23 AM CDTCT Abdomen and Pelvis with intravenous contrast.CLINICAL HISTORY: Abdominal infection including peritonitis.DOSE: Up-to-date CT equipment and radiation dosereduction techniques wereemployed. CTDIvol: 4.89 mGy. DLP: 248 mGy-cm.TECHNIQUE : Contiguous axial imaging from the level of the lung basesthrough the pubic symphysis were performed after the uncomplicatedadministration of Omnipaque contrast material. Coronal and sagittalreconstructions were obtained.Auto mA and/or iterative reconstruction wereused to reduce radiation dose.FINDINGS: Comparison is made with 05/23/2020 study.Lower lungs: Left basal Pleural thickening with minimal left pleuraleffusion.Probable short sliding hiatal hernia.Liver, Gallbladder and Spleen: No focal lesions detected in the liver or inthe spleen. Gallbladder is collapsed with diffuse thickening of the lindsey.Peritoneum: Thickened soft tissues noted in the subdiaphragmatic spacebetween liver and the diaphragm could be scar tissue from prior infection.Pigtail catheter in the right anterior upper abdomen is in place surroundedby small amount of residual fluid. Small track of fluid is seen along themidline over to the left subdiaphragmatic region.Second pigtail catheter in the left anterior subdiaphragmatic space appearsto have been discontinued since the previous study.Congested mesentery noted throughout abdomen with minimal fluid in theright paracolic gutter.Pancreas and Adrenals: Unremarkable pancreas and adrenal glands.Kidneys and Ureters: No visible calculi in the renal collecting systems. No hydroureter or hydronephrosis. Vessels: Normal.Retroperitoneum: No abnormal fluid or lymphadenopathy.Bowel: Ileostomy noted on the right side. Rectum and lower portion of thesigmoid noted with normal-appearing Aaron's pouch.Some of the small bowel loops are dilated which could be ileus.Bladder and Reproductive Organs: Thickened bladder lindsey could be due toincomplete luminal distention.Bones: Benign lesion in L4. Bone island in the neck of the right femur.Soft tissues: Unremarkable.CONCLUSION:1. Evidence of large bowel resection. Smith's pouch appears normal.Minimally congested mesenteric fat noted with minimal fluidin the rightparacolic gutter.2. Small amount of fluid along with scar tissue suspected surrounding theliver and spleen in the upper abdomen. Minimal left pleural effusion.Pigtail catheter in the right anterior abdominal good position.3. Functioning right-sided ileostomy.4. Enlarged prostate with central zone calcifications. Diffuse moderateenhancement of the right seminal vesicle noted which is unusual and ofunknown etiology. It could be a sign of infection. Left seminal vesicleshowed no significantenhancement.[facility] CenterTroponin [id number] 12:40:00 Test Item Value Reference Range Interpretation Comments TROPONIN I (test <0.012 See_Comment [Automated code = 3187033045) message] The system which generated this result transmitted reference range : <=0.034 ng/mL. The reference range was not used to interpr et this result as normal/abnormal . GILBERTO (test code = Equal or Less than GILBERTO) 0.034 ng/ml---Normal ?Note: Cardiac troponin begins to rise 3-4 hours after the onset of ischemia. Repeat in 4-6 hours if the sample was drawn within 3-4 hours of the onset of the symptom and found normal. Between 0.035 and 0.120 ng/mL--- Borderline. Questionable myocardial injury or necrosis ? ?Note: Serial measurement may be necessary to confirm or exclude the diagnosis of myocardial injury or necrosis; Clinical correlation (symptoms, EKGs, imaging studies, and others) required; Repeat in 4-6 hours if clinically indicated. ? Equal or Higher than 0.121 ng/mL---Abnormal. Myocardial Injury or Necrosis Likely ? Biotin has been reported to cause a negative bias, interpret results relative to patient's use of biotin. ? Lab Interpretation Normal (test code = 01281-4) [facility] CenterBasi Metabolic Panel (NA, K, CL, CO2, GLUCOSE, BUN, CREATININE, CA)2020-06-05 12:28:00 Test Item Value Reference Range Interpretation Comments NA (test code = 139 mmol/L 135-145 3221974157) K (test code = 4.4 mmol/L 3.5-5 5128045131) CL (test code = 112 mmol/L 98-108 H 6529099442) CO2 TOTAL (test code = 24 mmol/L 23-31 9756098601) AGAP (test code = 2-16 1356901371) BUN (test code = 23 mg/dL 7-23 3579748875) GLUCOSE (test code = 88 mg/dL 70-110 4011939386) CREATININE (test code = 0.96 mg/dL 0.6-1.25 1453144513) CALCIUM (test code = 9.5 mg/dL 8.6-10.6 9721754580) eGFR Calculation mL/min/1.73m2 (Non-) (test code = 0688182198) eGFR Calculation mL/min/1.73m2 () (test code = 5664864049) GILBERTO (test code = GILBERTO) Association of Glomerular Filtration Rate (GFR) and Staging of Kidney Disease* + --+ --+ ------+| GFR (mL/min/1.73 m2) ?| With Kidney Damage ?| ?Without Kidney Damage+ --------+ --------+ +| ?>90 ?| ?Stage one ?| ? Normal ?+ ---+ ---+ -------+| ?60-89 ?| ?Stage two ?| ? Decreased GFR ? + --+ --+ ------+| ?30-59 ?| ?Stage three ?| ? Stage three ? + --+ --+ ------+| ?15-29 ?| ?Stage four ? | ? Stage four ?+ ---+ ---+ -------+| ?<15 (or dialysis) ? ?| ?Stage five ? | ? Stage five ?+ ---+ ---+ -------+ *Each stage assumes the associated GFR level has been in effect for at least three months. ?Stages 1 to 5, with or without kidney disease, indicate chronic kidney disease. Notes: Determination of stages one and two (with eGFR >59mL/min/1.73 m2) requires estimation of kidney damage for at least three months as defined by structural or functional abnormalities of the kidney, manifested by either:Pathological abnormalities or Markers of kidney damage (including abnormalities in the composition of the blood or urine or abnormalities in imaging tests). Lab Interpretation Abnormal (test code = 05480-6) [facility] CenterHepatic Function Panel (ALB, T.PRO, BILI T, BU/BC, ALT, AST, ALK PHOS)2020-06-05 12:28:00 Test Item Value Reference Range Interpretation Comments TOTAL BILI (test code = 8581749704) 0.5 mg/dL 0.1-1.1 BILI UNCON (test code = 6007312989) 0.3 mg/dL 0.1-1.1 BILI CONJ (test code = 4895821785) 0.0 mg/dL 0-0.3 T PROTEIN (test code = 8681567750) 6.6 g/dL 6.3-8.2 ALBUMIN (test code = 4430513212) 3.7 g/dL 3.5-5 ALK PHOS (test code = 3523802622) 79 U/L 34-122 ALTv (test code = 1742-6) 23 U/L 5-50 AST(SGOT) (test code = 0093784831) 27 U/L 13-40 Lab Interpretation (test code = Normal 08546-1) [facility] CenterLipase [id number] 12:28:00 Test Item Value Reference Range Interpretation Comments LIPASE (test code = 4174070561) 150 U/L 0-220 Lab Interpretation (test code = Normal 66578-7) [facility] CenterCBC with [id number] 12:11:00 Test Item Value Reference Range Interpretation Comments WBC (test code = See_Comment [Automated 6690-2) message] The sy stem which generated this result transmitted reference range : 4.20 - 10.70 10*3/?L. The reference range was not used to interpret this result as normal/abnormal . RBC (test code = See_Comment L [Automated 789-8) message] The sy stem which generated this result transmitted reference range : 4.26 - 5.52 10*6/?L. The reference range was not used to interpret this result as normal/abnormal . HGB (test code = 9.9 g/dL 12.2-16.4 L 718-7) HCT (test code = 32.9 % 38.4-49.3 L 4544-3) MCV (test code = 85.9 fL 81.7-95.6 787-2) MCH (test code = 25.8 pg 26.1-32.7 L 785-6) MCHC (test code = 30.1 g/dL 31.2-35 L 786-4) RDW-SD (test code = 62.2 fL 38.5-51.6 H 95809-1) RDW-CV (test code = 20.0 % 12.1-15.4 H 788-0) PLT (test code = See_Comment [Automated 777-3) message] The sy stem which generated this result transmitted reference range : 150 - 328 10*3/ ?L. The reference r meredith was not used to interpret this result as normal/abnormal . MPV (test code = 10.0 fL 9.8-13 71904-8) NRBC/100 WBC (test See_Comment [Automat ed code = 8154378017) message] The system which generated this result transmitted reference range : 0.0 - 10.0 /100 WBCs. The refer ence range was not u sed to interpret th is result as normal/abnormal . NRBC x10^3 (test code <0.01 See_Comment [Auto mated = 0876698029) message] The s ystem which generated this result transmitted reference range : 10*3/?L. The reference range was not used to interpret this result as normal/abnormal . GRAN MAT (NEUT) % 65.7 % (test code = 770-8) IMM GRAN % (test code 0.30 % = 9051285442) LYMPH % (test code = 21.2 % 736-9) MONO % (test code = 10.0 % 5905-5) EOS % (test code = 2.3 % 713-8) BASO % (test code = 0.5 % 706-2) GRAN MAT x10^3(ANC) 3.99 10*3/uL 1.99-6.95 (test code = 7543975944) IMM GRAN x10^3 (test <0.03 0-0.06 code = 6936550346) LYMPH x10^3 (test code 1.29 10*3/uL 1.09-3.23 = 731-0) MONO x10^3 (test code 0.61 10*3/uL 0.36-1.02 = 742-7) EOS x10^3 (test code = 0.14 10*3/uL 0.06-0.53 711-2) BASO x10^3 (test code 0.03 10*3/uL 0.01-0.09 = 704-7) Lab Interpretation Abnormal (test code = 95935-0) [facility] Acid Whole [id number] 12:04:00 Test Item Value Reference Range Interpretation Comments LACTIC ACID (test code = 1.23 mmol/L 6864359983) [facility] CenterIR ABSCESS DRAIN [id number] 14:57:23 Successful abscessogram demonstrated unchanged position of the pigtailcatheter within the right upper quadrant, with questionable fistulizationto bowel. PLAN: It is advised to leave the catheter in place for 6-8 weeks given thepossibility of fistula formation between the collection and the bowel toallow for maturation of the tract. According to Executive Order [place] 09 and emergency rule 22 [place] ([place] ?187.57(c), this procedure was deemed medicallynecessary to address a medical condition (status post drain placement inright abdomen fluid collection; no output for 3 consecutive days; needdrain evaluation and possible removal) which places this patient at riskfor serious adverse medical consequences or . Preliminary Report Dictated by Resident: Johnny Tilley. As the attendingradiologist, I, Dr. Sadiq Gordon, was present inthe room during the entire procedure. ISadiq MD., have reviewed this study and agree with theabove report.EXAMINATION: PERCUT ANEOUS PERIHEPATIC ABSCESS DRAINAGE CATHETEREVALUATION/EXCHANGE. HISTORY: 50 years-old; Male; s/p Drain placement in right abdomen fluidcollection. No output for 3 consecutive days. Please eval for possibleremoval. ATTENDEES: ?Attending radiologist: Dr. Sadiq Gordon; Resident: Dr. Johnny Tilley;Contributing VIR resident: Dr. Leeanna Valenzuela. SEDATION: No moderate sedation was administered forthis procedure. RADIATION DOSE: 7.7 mGy. TECHNIQUE: The risks, benefits and alternatives were discussed and informed consentwas obtained. Prior to beginning the procedure, Dexter Protocol was usedtoconfirm the patient's identity and planned procedure. Maximum sterilebarriers including cap, mask, bojorquez nd hygiene, sterile gloves, sterile gown,large sterile drape and cutaneous antisepsis were used. Theskin overlying the existing drainage catheter in the right upperquadrant of the abdomen was sterilely prepped, draped and infiltrated with1 percent lidocaine. A drying room operator image was documented prior to the injection of contrast.Approximately 20 mL of contrast was injected through the existing catheterto delineate the collection cavity. Fluoroscopy imaging was obtained andarchived into PACS system. The tipof the catheter was in an unchangedposition compared to the most recent study. No catheter exchange or removalwas performed. The catheter was reconnected to gravity drainage. A sterile dressing wasapplied. The patient tolerated the procedure well without immediatecomplication. COMPLICATIONS: None immediate. ESTIMATED BLOOD LOSS: None. DISCHARGED TO: To inpatient unit. CONDITION: Stable. FINDINGS: Images from the procedure revealed a small residual perihepatic cavity withunchanged position of the drainage catheter and with questionablefistulization to bowel. [facility], Radiant Results Inft User - 05/31/2020 9:58 AM CDTEXAMINATION: PERCUTANEOUS PERIHEPATIC ABSCESS DRAINAGE CATHETEREVALUATION/EXCHANGE.HISTORY: 50 years-old; Male; s/p Drain placement in right abdomen fluidcollection. No output for 3 consecutive days. Please eval for possibleremoval.ATTENDEES: Attending radiologist: Dr. Sadiq Gordon; Resident: Dr. Johnny Tilley;Contributing [facility] resident: Dr. Leeanna Valenzuela.SEDATION: No moderate sedation was administered for this procedure.RADIATION DOSE: 7.7 mGy.TECHNIQUE: The risks, benefits and alternatives were discussed and informed consentwas obtained. Prior to beginning the procedure, Dexter Protocol was usedto confirm the patient's identity and planned procedure. Maximum sterilebarriers including cap, mask, hand hygiene, sterile gloves, sterile gown,large sterile drape and cutaneous antisepsis were used. The skin overlying the existing drainage catheter in the right upperquadrant of the abdomen was sterilely prepped, draped and infiltrated with1 percent lidocaine. A drying room operator image was documented prior to the injection of contrast.Approximately 20 mL of contrast was injected throughthe existing catheterto delineate the collection cavity. Fluoroscopy imaging was obtained andarchived into PACS system. The tip of the catheter was in an unchangedposition compared to the most recent study. No catheter exchange or removalwas performed.The catheter was reconnected to gravity drainage. A sterile dressing wasapplied. The patient tolerated the procedure well without immediatecomplication.COMPLICATIONS: None immediate.ESTIMATED BLOOD LOSS: None.DISCHARGED TO: To inpatient unit.CONDITION:Stable.FINDINGS: Images from the procedure revealed a small residual perihepatic cavity withunchanged position of the drainage catheter and with questionablefistulization to bowel.IMPRESSIONSuccessful abscessogram demonstrated unchanged position of the pigtailcatheter within the right upper quadrant, with questionable fistulizationto bowel.PLAN: It is advised to leave the catheter in place for 6-8 weeks given thepossibility of fistula formation between the collection and the bowel toallow for maturation of the tract.According to Executive Order [place] 09 and emergency rule 22 [place] ([place] ?187.57(c), this procedure was deemed medicallynecessary to address a medical condition (status post drain placement inright abdomen fluid collection; no output for 3 consecutive days; needdrain evaluation and possible removal) which places this patient at riskfor serious adverse medical consequences or .Preliminary Report Dictated by Resident: Johnny Tilley.As the attending radiologist, I, Dr. Sadiq Gordon, was present inthe room during the entire procedure.I, Sadiq Gordon MD., have reviewed this study and agree with theabove report. [facility] (NA, K, CL, CO2, GLUCOSE, BUN, CREATININE, CA)2020-05-31 08:13:00 Test Item Value Reference Range Interpretation Comments NA (test code = 135 mmol/L 135-145 0057387722) K (test code = 4.1 mmol/L 3.5-5 7770067050) CL (test code = 99 mmol/L 98-108 5244181384) CO2 TOTAL (test code = 32 mmol/L 23-31 H 4992076670) AGAP (test code = 2-16 8169904355) BUN (test code = 14 mg/dL 7-23 4666578896) GLUCOSE (test code = 89 mg/dL 70-110 7324978010) CREATININE (test code = 0.67 mg/dL 0.6-1.25 8635298488) CALCIUM (test code = 8.2 mg/dL 8.6-10.6 L 0451685119) eGFR Calculation mL/min/1.73m2 (Non-) (test code = 5811326923) eGFR Calculation mL/min/1.73m2 () (test code = 9866801131) GILBERTO (test code = GILBERTO) Association of Glomerular Filtration Rate (GFR) and Staging of Kidney Disease* + --+ --+ ------+| GFR (mL/min/1.73 m2) ?| With Kidney Damage ?| ?Without Kidney Damage+ --------+ --------+ +| ?>90 ?| ?Stage one ?| ? Normal ?+ ---+ ---+ -------+| ?60-89 ?| ?Stage two ?| ? Decreased GFR ? + --+ --+ ------+| ?30-59 ?| ?Stage three ?| ? Stage three ? + --+ --+ ------+| ?15-29 ?| ?Stage four ? | ? Stage four ?+ ---+ ---+ -------+| ?<15 (or dialysis) ? ?| ?Stage five ? | ? Stage five ?+ ---+ ---+ -------+ *Each stage assumes the associated GFR level has been in effect for at least three months. ?Stages 1 to 5, with or without kidney disease, indicate chronic kidney disease. Notes: Determination of stages one and two (with eGFR >59mL/min/1.73 m2) requires estimation of kidney damage for at least three months as defined by structural or functional abnormalities of the kidney, manifested by either:Pathological abnormalities or Markers of kidney damage (including abnormalities in the composition of the blood or urine or abnormalities in imaging tests). Lab Interpretation Abnormal (test code = 79424-6) [facility]2020-[facility]-08 08:13:00 Test Item Value Reference Range Interpretation Comments MAGNESIUM (test code = 1508713676) 1.8 mg/dL 1.7-2.4 Lab Interpretation (test code = Normal 35948-6) [facility]2020-[facility]-08 08:13:00 Test Item Value Reference Range Interpretation Comments PHOSPHORUS (test code = 1365780006) 5.2 mg/dL 2.5-5 H Lab Interpretation (test code = Abnormal 76932-0) [facility] WITH [id number] 08:05:00 Test Item Value Reference Range Interpretation Comments WBC (test code = See_Comment L [Automated 6690-2) message] The sy stem which generated this result transmitted reference range : 4.20 - 10.70 10*3/?L. The reference range was not used to interpret this result as normal/abnormal . RBC (test code = See_Comment L [Automated 789-8) message] The sy stem which generated this result transmitted reference range : 4.26 - 5.52 10*6/?L. The reference range was not used to interpret this result as normal/abnormal . HGB (test code = 8.2 g/dL 12.2-16.4 L 718-7) HCT (test code = 26.8 % 38.4-49.3 L 4544-3) MCV (test code = 83.8 fL 81.7-95.6 787-2) MCH (test code = 25.6 pg 26.1-32.7 L 785-6) MCHC (test code = 30.6 g/dL 31.2-35 L 786-4) RDW-SD (test code = 57.9 fL 38.5-51.6 H 75762-5) RDW-CV (test code = 18.7 % 12.1-15.4 H 788-0) PLT (test code = See_Comment [Automated 777-3) message] The sy stem which generated this result transmitted reference range : 150 - 328 10*3/ ?L. The reference r meredith was not used to interpret this result as normal/abnormal . MPV (test code = 10.3 fL 9.8-13 40796-2) NRBC/100 WBC (test See_Comment [Automat ed code = 8083725313) message] The system which generated this result transmitted reference range : 0.0 - 10.0 /100 WBCs. The refer ence range was not u sed to interpret th is result as normal/abnormal . NRBC x10^3 (test code <0.01 See_Comment [Auto mated = 9182517912) message] The s ystem which generated this result transmitted reference range : 10*3/?L. The reference range was not used to interpret this result as normal/abnormal . GRAN MAT (NEUT) % 56.4 % (test code = 770-8) IMM GRAN % (test code 0.50 % = 3439065333) LYMPH % (test code = 26.2 % 736-9) MONO % (test code = 12.2 % 5905-5) EOS % (test code = 4.2 % 713-8) BASO % (test code = 0.5 % 706-2) GRAN MAT x10^3(ANC) 2.31 10*3/uL 1.99-6.95 (test code = 4794230601) IMM GRAN x10^3 (test <0.03 0-0.06 code = 7906111239) LYMPH x10^3 (test code 1.07 10*3/uL 1.09-3.23 L = 731-0) MONO x10^3 (test code 0.50 10*3/uL 0.36-1.02 = 742-7) EOS x10^3 (test code = 0.17 10*3/uL 0.06-0.53 711-2) BASO x10^3 (test code <0.03 0.01-0.09 = 704-7) Lab Interpretation Abnormal (test code = 51975-3) [facility] METABOLIC PANEL (NA, K, CL, CO2, GLUCOSE, BUN, CREATININE, CA)2020-05-30 09:04:00 Test Item Value Reference Range Interpretation Comments NA (test code = 138 mmol/L 135-145 2285760359) K (test code = 4.4 mmol/L 3.5-5 3839247299) CL (test code = 99 mmol/L 98-108 0015887795) CO2 TOTAL (test code = 33 mmol/L 23-31 H 5771241509) AGAP (test code = 2-16 2789486391) BUN (test code = 18 mg/dL 7-23 9901515600) GLUCOSE (test code = 86 mg/dL 70-110 4373220516) CREATININE (test code = 0.61 mg/dL 0.6-1.25 0159331253) CALCIUM (test code = 8.1 mg/dL 8.6-10.6 L 0773203949) eGFR Calculation mL/min/1.73m2 (Non-) (test code = 2546763468) eGFR Calculation mL/min/1.73m2 () (test code = 1257984021) GILBERTO (test code = GILBERTO) Association of Glomerular Filtration Rate (GFR) and Staging of Kidney Disease* + --+ --+ ------+| GFR (mL/min/1.73 m2) ?| With Kidney Damage ?| ?Without Kidney Damage+ --------+ --------+ +| ?>90 ?| ?Stage one ?| ? Normal ?+ ---+ ---+ -------+| ?60-89 ?| ?Stage two ?| ? Decreased GFR ? + --+ --+ ------+| ?30-59 ?| ?Stage three ?| ? Stage three ? + --+ --+ ------+| ?15-29 ?| ?Stage four ? | ? Stage four ?+ ---+ ---+ -------+| ?<15 (or dialysis) ? ?| ?Stage five ? | ? Stage five ?+ ---+ ---+ -------+ *Each stage assumes the associated GFR level has been in effect for at least three months. ?Stages 1 to 5, with or without kidney disease, indicate chronic kidney disease. Notes: Determination of stages one and two (with eGFR >59mL/min/1.73 m2) requires estimation of kidney damage for at least three months as defined by structural or functional abnormalities of the kidney, manifested by either:Pathological abnormalities or Markers of kidney damage (including abnormalities in the composition of the blood or urine or abnormalities in imaging tests). Lab Interpretation Abnormal (test code = 16684-0) [facility]2020-10-07 09:04:00 Test Item Value Reference Range Interpretation Comments MAGNESIUM (test code = 1194353172) 2.0 mg/dL 1.7-2.4 Lab Interpretation (test code = Normal 90472-2) [facility]2020-10-07 09:04:00 Test Item Value Reference Range Interpretation Comments PHOSPHORUS (test code = 3212349736) 4.6 mg/dL 2.5-5 Lab Interpretation (test code = Normal 32189-1) [facility] METABOLIC PANEL (NA, K, CL, CO2, GLUCOSE, BUN, CREATININE, CA)2020-05-29 07:31:00 Test Item Value Reference Range Interpretation Comments NA (test code = 135 mmol/L 135-145 6808283786) K (test code = 4.0 mmol/L 3.5-5 7391089920) CL (test code = 100 mmol/L 98-108 3993271606) CO2 TOTAL (test code = 32 mmol/L 23-31 H 4404119180) AGAP (test code = 2-16 8511560176) BUN (test code = 19 mg/dL 7-23 7443576820) GLUCOSE (test code = 86 mg/dL 70-110 3906148216) CREATININE (test code = 0.68 mg/dL 0.6-1.25 7835356947) CALCIUM (test code = 8.0 mg/dL 8.6-10.6 L 6159005297) eGFR Calculation mL/min/1.73m2 (Non-) (test code = 6769316974) eGFR Calculation mL/min/1.73m2 () (test code = 7200949692) GILBERTO (test code = GILBERTO) Association of Glomerular Filtration Rate (GFR) and Staging of Kidney Disease* + --+ --+ ------+| GFR (mL/min/1.73 m2) ?| With Kidney Damage ?| ?Without Kidney Damage+ --------+ --------+ +| ?>90 ?| ?Stage one ?| ? Normal ?+ ---+ ---+ -------+| ?60-89 ?| ?Stage two ?| ? Decreased GFR ? + --+ --+ ------+| ?30-59 ?| ?Stage three ?| ? Stage three ? + --+ --+ ------+| ?15-29 ?| ?Stage four ? | ? Stage four ?+ ---+ ---+ -------+| ?<15 (or dialysis) ? ?| ?Stage five ? | ? Stage five ?+ ---+ ---+ -------+ *Each stage assumes the associated GFR level has been in effect for at least three months. ?Stages 1 to 5, with or without kidney disease, indicate chronic kidney disease. Notes: Determination of stages one and two (with eGFR >59mL/min/1.73 m2) requires estimation of kidney damage for at least three months as defined by structural or functional abnormalities of the kidney, manifested by either:Pathological abnormalities or Markers of kidney damage (including abnormalities in the composition of the blood or urine or abnormalities in imaging tests). Lab Interpretation Abnormal (test code = 20395-3) [facility]2020-10-06 07:31:00 Test Item Value Reference Range Interpretation Comments MAGNESIUM (test code = 1848407063) 1.6 mg/dL 1.7-2.4 L Lab Interpretation (test code = Abnormal 54594-7) [facility]2020-10-06 07:31:00 Test Item Value Reference Range Interpretation Comments PHOSPHORUS (test code = 8750548695) 3.5 mg/dL 2.5-5 Lab Interpretation (test code = Normal 01016-5) [facility] CenterASPIR[facility] OR ABSCESS CULTURE(AEROBIC/ANAEROBIC) 2020-05-28 12:35:00 Test Item Value Reference Range Interpretation Comments Aspirate or Abscess No aerobic/anaerobic Culture (test code = organisms isolated 68195-7) Gram stain (test code Occasional (Rare) = 664-3) Mononuclear cells [facility] MET[facility]OLIC PAN[facility] (NA, K, CL, CO2, GLUCOSE, BUN, CREATININE, CA)2020-05-28 09:36:00 Test Item Value Reference Range Interpretation Comments NA (test code = 136 mmol/L 135-145 0506131933) K (test code = 4.3 mmol/L 3.5-5 8114025516) CL (test code = 102 mmol/L 98-108 7318160287) CO2 TOTAL (test code = 31 mmol/L 23-31 3855366620) AGAP (test code = 2-16 9325876846) BUN (test code = 25 mg/dL 7-23 H 6364755677) GLUCOSE (test code = 87 mg/dL 70-110 2607160152) CREATININE (test code = 0.65 mg/dL 0.6-1.25 4438468769) CALCIUM (test code = 8.2 mg/dL 8.6-10.6 L 6942290045) eGFR Calculation mL/min/1.73m2 (Non-) (test code = 0032721802) eGFR Calculation mL/min/1.73m2 () (test code = 5533353155) GILBERTO (test code = GILBERTO) Association of Glomerular Filtration Rate (GFR) and Staging of Kidney Disease* + --+ --+ ------+| GFR (mL/min/1.73 m2) ?| With Kidney Damage ?| ?Without Kidney Damage+ --------+ --------+ +| ?>90 ?| ?Stage one ?| ? Normal ?+ ---+ ---+ -------+| ?60-89 ?| ?Stage two ?| ? Decreased GFR ? + --+ --+ ------+| ?30-59 ?| ?Stage three ?| ? Stage three ? + --+ --+ ------+| ?15-29 ?| ?Stage four ? | ? Stage four ?+ ---+ ---+ -------+| ?<15 (or dialysis) ? ?| ?Stage five ? | ? Stage five ?+ ---+ ---+ -------+ *Each stage assumes the associated GFR level has been in effect for at least three months. ?Stages 1 to 5, with or without kidney disease, indicate chronic kidney disease. Notes: Determination of stages one and two (with eGFR >59mL/min/1.73 m2) requires estimation of kidney damage for at least three months as defined by structural or functional abnormalities of the kidney, manifested by either:Pathological abnormalities or Markers of kidney damage (including abnormalities in the composition of the blood or urine or abnormalities in imaging tests). Lab Interpretation Abnormal (test code = 61059-4) [facility]2020-10-05 09:36:00 Test Item Value Reference Range Interpretation Comments MAGNESIUM (test code = 5946304135) 1.6 mg/dL 1.7-2.4 L Lab Interpretation (test code = Abnormal 69953-0) [facility]2020-10-05 09:36:00 Test Item Value Reference Range Interpretation Comments PHOSPHORUS (test code = 6941903628) 2.6 mg/dL 2.5-5 Lab Interpretation (test code = Normal 20656-1) [facility]OL[facility] (NA, K, CL, CO2, GLUCOSE, BUN, CREATININE, CA)2020-05-27 10:13:00 Test Item Value Reference Range Interpretation Comments NA (test code = 135 mmol/L 135-145 9131221047) K (test code = 3.9 mmol/L 3.5-5 0101089796) CL (test code = 103 mmol/L 98-108 6433500432) CO2 TOTAL (test code = 28 mmol/L 23-31 6928834779) AGAP (test code = 2-16 0694950396) BUN (test code = 20 mg/dL 7-23 9655988803) GLUCOSE (test code = 95 mg/dL 70-110 7042190260) CREATININE (test code = 0.67 mg/dL 0.6-1.25 5802996058) CALCIUM (test code = 8.2 mg/dL 8.6-10.6 L 3718466881) eGFR Calculation mL/min/1.73m2 (Non-) (test code = 8405623104) eGFR Calculation mL/min/1.73m2 () (test code = 4077675834) GILBERTO (test code = GILBERTO) Association of Glomerular Filtration Rate (GFR) and Staging of Kidney Disease* + --+ --+ ------+| GFR (mL/min/1.73 m2) ?| With Kidney Damage ?| ?Without Kidney Damage+ --------+ --------+ +| ?>90 ?| ?Stage one ?| ? Normal ?+ ---+ ---+ -------+| ?60-89 ?| ?Stage two ?| ? Decreased GFR ? + --+ --+ ------+| ?30-59 ?| ?Stage three ?| ? Stage three ? + --+ --+ ------+| ?15-29 ?| ?Stage four ? | ? Stage four ?+ ---+ ---+ -------+| ?<15 (or dialysis) ? ?| ?Stage five ? | ? Stage five ?+ ---+ ---+ -------+ *Each stage assumes the associated GFR level has been in effect for at least three months. ?Stages 1 to 5, with or without kidney disease, indicate chronic kidney disease. Notes: Determination of stages one and two (with eGFR >59mL/min/1.73 m2) requires estimation of kidney damage for at least three months as defined by structural or functional abnormalities of the kidney, manifested by either:Pathological abnormalities or Markers of kidney damage (including abnormalities in the composition of the blood or urine or abnormalities in imaging tests). Lab Interpretation Abnormal (test code = 00614-8) [facility] Test Item Value Reference Range Interpretation Comments MAGNESIUM (test code = 1081090161) 1.5 mg/dL 1.7-2.4 L Lab Interpretation (test code = Abnormal 59528-4) [facility]2020-[facility]-04 10:13:00 Test Item Value Reference Range Interpretation Comments PHOSPHORUS (test code = 8844409255) 3.4 mg/dL 2.5-5 Lab Interpretation (test code = Normal 09541-1) [facility] Center[facility] CH[facility] ABSCESS [id number] 17:06:27 Successful removal of the left upper quadrant drainage catheter. Replacement of the right upper quadrant catheter into the most superiorsegment of the collection with a new 10 [place] pigtail catheter.PLAN: This tube should be flushed with 10 of saline twice a day. ?We willcontinue to monitor the output of the catheter while the patient isin-house. If the patient is discharged prior to catheter removal, follow-upwith VIR is recommended in 7-10 ?days. This can be arranged by [id number]. Preliminary Report Dictated by Resident: Johnny Tilley I, as teaching physician, was present during the entire procedure and/orduring the botello components. I, Nixon Prince MD., have reviewed this study andagree with theabove report.EXAMINATION: 1. PERCUTANEOUS PERIHEPATIC DRAINAGE REPLACEMENT2. LEFT UPPER QUADRANT DRAINAGE REMOVAL. HISTORY: 50 years- old; Male; abscess ATTENDEES: ?Attending radiologist: Nixon Perez; Resident: Dr. Johnny Tilley;Contributing VIR Fellow: Dr. Vance Stafford. SEDATION: Mo derate sedation was administered under the attendingphysician's direction and continuous monitoring by a trained nursespecialist who was independent from those actually performing theprocedure. Please see [facility] for sedation time. RADIATION DOSE: 33.0 mGy. TECHNIQUE: The risks, benefits and alternativeswere discussed and informed consentwas obtained. Prior to beginning the procedure, Dexter Protocol was usedto confirm the patient's identity and planned procedure. Maximum sterilebarriers including cap, mask, hand hygiene, sterile gloves, sterile gown,large sterile drape and cutaneous antisepsis were used. The skin overlying the fluid collection in the RUQ and LUQ was sterilelyprepped, draped. PROCEDURE 1 (LUQ DRAINAGE REMOVAL): After minimal injection of contrast material into the collection cavitythrough the existing drainage catheter, fluoroscopy images were acquired todelineate the entirety of the fluid collection. The anchor suture at theskin was cut followed by uneventful removal of the catheter. A steriledressing was applied. PROCEDURE 2 (RUQ DRAINAGE REPLACEMENT): Contrast material wasinjected into the collection to delineate the extentof the cavity. A Glidewire was advanced through the existing catheter intothe fluid collection with the tip placed in the most superior segment. A 10F rench pigtail catheter was then advanced over the wire, formed in thecollection and then secured in place with a stitch. The catheter wasconnected to an accordion bag. A sterile dressing was applied. ESTIMATED BLOOD LOSS: Minimal. DISCHARGED TO: Recovery and then to inpatient unit. CONDITION: Stable. FINDINGS: Fluoroscopic images of the RUQ and LUQ drainage catheters afteradministration of contrast material demonstrated placement of the pigtailcatheters within the respective collections. [facility], Radiant Results Inft User - 05/26/2020 12:07 PM CDTEXAMINATION: 1. PERCUTANEOUS PERIHEPATIC DRAINAGE REPLACEMENT2. LEFT UPPER QUADRANT DRAINAGE REMOVAL.HISTORY: 50 years-old; Male; abscess ATTENDEES: Attending radiologist: Nixon Perez; Resident: Dr. Johnny Tilley;Contributing VIR Fellow: Dr. Vance Stafford.SEDATION: Moderate sedation was administered under the attendingphysician's direction and continuous monitoring by a trained nursespecialist who was independent from those actually performing theprocedure. Please see [facility] for sedation time.RADIATION DOSE: 33.0 mGy.TECHNIQUE: The risks, benefits andalternatives were discussed and informed consentwas obtained. Prior to beginning the procedure, Dexter Protocol was usedto confirm the patient's identity and planned procedure. Maximum sterilebarriers including cap, mask, hand hygiene, sterile gloves, sterile gown,large sterile drape and cutaneous a ntisepsis were used. The skin overlying the fluid collection in the RUQ and LUQ was sterilelyprepped, draped.PROCEDURE 1 (LUQ DRAINAGE REMOVAL):After minimal injection of contrast material into the collection cavitythrough the existing drainage catheter, fluoroscopy images were acquired todelineate the entirety of the fluid collection. The anchor suture at theskin was cut followed by uneventful removal of the catheter. A steriledressing was applied.PROCEDURE 2 (RUQ DRAINAGE REPLACEMENT):Contrast material was injected into the collection to delineate the extentof the cavity. A Glidewire was advancedthrough the existing catheter intothe fluid collection with the tip placed in the most superior segme nt. A 10French pigtail catheter was then advanced over the wire, formed in thecollection and then secured in place with a stitch. The catheter wasconnected to an accordion bag. A sterile dressing was applied. ESTIMATED BLOOD LOSS: Minimal.DISCHARGED TO: Recovery and then to inpatient unit.CONDITION: St able.FINDINGS: Fluoroscopic images of the RUQ and LUQ drainage catheters afteradministration of contrast material demonstrated placement of the pigtailcatheters within the respective collections.IMPRESSIONSuccessful removal of the left upper quadrant drainage catheter.Replacement of the right upper neno drant catheter into the most superiorsegment of the collection with a new 10 [place] pigtail catheter.PLAN: This tube should be flushed with 10 of saline twice a day. We willcontinue to monitor the output of the catheter while the patient isin-house. If the patient is discharged prior to catheter removal, follow-upwith VIR is recommended in 7-10 days. This can be arranged by [id number].Preliminary Report Dictated by Resident: Johnny Benitez, as teaching physician, was present during the entire procedure and/orduring the botello components.Nixon Damon MD., have reviewed this study and agree with theabove report.[facility] CenterIR ASP[facility]ATION ABSCESS BULLA OR CYST BY [id number] 17:06:16 Successful ultrasound-guided aspiration of intrahepatic small fluidcollection. Sample sent for culture. Preliminary Report Dictated by Resident: Johnny Tilley I, as teaching physician, was present during the entire procedure and/orduring the botello components. Nixon Damon MD., have reviewed this study and agree with theabove report.EXAMINATION: IMAGE GUIDED PERCUTANEOUS INFRAHEPATIC FLUID COLLECTIONASPIRATION HISTORY: 50 years- old; Male; peritoneal abscess. ATTENDEES: ?Attending radiologist:Nixon Perez; Resident: Dr. Johnny Tilley;Contributing VIR Fellow: Dr. Vnace Satfford. SEDATION: No moderate sedation was utilized for this procedure. TECHNIQUE: The risks, benefits and alternativeswere discussed and informed consentwas obtained. Prior to beginning the procedure, Dexter Protocol was usedto confirm the patient's identity and planned procedure. Maximum sterilebarriers including cap, mask, hand hygiene, sterile gloves, sterile gown,large sterile drape and cutaneous antisepsis were used. The skin overlying the right mid abdomen was sterilely prepped, draped andinfiltrated with 1percent lidocaine. The targeted infrahepatic small collection was then accessed with [id number] micropuncture needle using imaging guidance which includedultrasound. The fluid collection was carefully aspirated. A steriledressing was applied. A sample of the fluid was sent for culture ESTIMATED BLOOD LOSS: Minimal. DISCHARGED TO: Recovery and then to inpatient unit. CONDITION: Stable. FINDINGS: Ultrasound imaging of the infrahepatic area demonstrated a very smallanechoic fluid collection. 1 mL yellowviscous-appearing fluid wasaspirated. [facility], Radiant Results Inft User - 05/26/2020 12:07 PM CDTEXAMINATION: IMAGE GUIDED PERCUTANEOUS INFRAHEPATIC FLUID COLLECTIONASPIRATIONHISTORY: 50 years-old; Male;peritoneal abscess.ATTENDEES: Attending radiologist: Nixon Perez; Resident: Dr. Johnny Tilley;Contributing VIR Fellow: Dr. Vance Stafford.SEDATION: No moderate sedation was utilized for this procedure.TECHNIQUE: The risks, benefits and alternatives were discussed and informed consentwas obtained. Prior to beginning the procedure, Dexter Protocol was usedto confirm the patient's identity and planned procedure. Maximum sterilebarriers including cap, mask, hand hygiene, sterile gloves, sterile gown,large sterile drape and cutaneous antisepsis were used. The skin overlying the right mid abdomen was sterilely prepped, draped andinfiltrated with 1 percent lidocaine. The targeted infrahepatic small collection was then accessed with [id number] micropuncture needle using imaging guidance which includ edultrasound. The fluid collection was carefully aspirated. A steriledressing was applied. A sample of the fluid was sent for cultureESTIMATED BLOOD LOSS: Minimal.DISCHARGED TO: Recovery and then to inpatient unit.CONDITION: Stable.FINDINGS: Ultrasound imaging of the infrahepatic area demonstrated a very smallanechoic fluid collection. 1 mL yellow viscous-appearing fluid wasaspirated.IMPRESSIONSuccessful ultrasound-guided aspiration of intrahepatic small fluidcollection. Sample sent for culture.Preliminary Report Dictated by Resident: Johnny Benitez, as teaching physician, was present during the entire procedure and/orduring the botello components.I, Nixon Prince MD., have reviewed this study and agree with theabove report.[facility] (NA, K, CL, CO2, GLUCOSE, BUN, CREATININE, CA) 2020-05-26 10:13:00 Test Item Value Reference Range Interpretation Comments NA (test code = 135 mmol/L 135-145 0881534811) K (test code = 4.4 mmol/L 3.5-5 1555126883) CL (test code = 107 mmol/L 98-108 7049046564) CO2 TOTAL (test code = 23 mmol/L 23-31 8442486450) AGAP (test code = 2-16 5838804125) BUN (test code = 18 mg/dL 7-23 3367373681) GLUCOSE (test code = 101 mg/dL 70-110 6781802867) CREATININE (test code = 0.61 mg/dL 0.6-1.25 6973304659) CALCIUM (test code = 8.1 mg/dL 8.6-10.6 L 0223731073) eGFR Calculation mL/min/1.73m2 (Non-) (test code = 0628892307) eGFR Calculation mL/min/1.73m2 () (test code = 0034167786) GILBERTO (test code = GILBERTO) Association of Glomerular Filtration Rate (GFR) and Staging of Kidney Disease* + --+ --+ ------+| GFR (mL/min/1.73 m2) ?| With Kidney Damage ?| ?Without Kidney Damage+ --------+ --------+ +| ?>90 ?| ?Stage one ?| ? Normal ?+ ---+ ---+ -------+| ?60-89 ?| ?Stage two ?| ? Decreased GFR ? + --+ --+ ------+| ?30-59 ?| ?Stage three ?| ? Stage three ? + --+ --+ ------+| ?15-29 ?| ?Stage four ? | ? Stage four ?+ ---+ ---+ -------+| ?<15 (or dialysis) ? ?| ?Stage five ? | ? Stage five ?+ ---+ ---+ -------+ *Each stage assumes the associated GFR level has been in effect for at least three months. ?Stages 1 to 5, with or without kidney disease, indicate chronic kidney disease. Notes: Determination of stages one and two (with eGFR >59mL/min/1.73 m2) requires estimation of kidney damage for at least three months as defined by structural or functional abnormalities of the kidney, manifested by either:Pathological abnormalities or Markers of kidney damage (including abnormalities in the composition of the blood or urine or abnormalities in imaging tests). Lab Interpretation Abnormal (test code = 75415-8) [facility] CenterMAG[facility]IUM2020-10-03 10:13:00 Test Item Value Reference Range Interpretation Comments MAGNESIUM (test code = 3157078188) 1.7 mg/dL 1.7-2.4 Lab Interpretation (test code = Normal 17756-2) [facility] CenterPHOSPHORUS2020-10-03 10:13:00 Test Item Value Reference Range Interpretation Comments PHOSPHORUS (test code = 8213461491) 3.4 mg/dL 2.5-5 Lab Interpretation (test code = Normal 31682-7) [facility] CenterXR [id number] 23:20:33 Positioning dictated draining the right upper quadrant. Nopneumoperitoneum. Preliminary Report Dicta dain by Resident: Abhijit Cornell MD., have reviewed this study and agree with theabove report.EXAM: XR KUB HISTORY: Evaluate for free air Please take with patient upright to evaluatefor free air. COMPARISON: Abdomen radiographs 04/06/2020, CT 05/23/2020 FINDINGS: The bowel gaspattern is unremarkable. No pathologically dilated bowelloops. A pigtail tube is noted with the tip at the right upper quadrant. No radiopaque stones or abnormal calcifications are identified. No acutebony abnormality is present. [facility], Radiant Results Inft User - 05/25/2020 6:21 PM CDTEXAM: XR KUBHISTORY: Evaluate for free air Please take with patient upright to evaluatefor free air.COMPARISON: Abdomen radiographs 04/06/2020, CT 05/23/2020FINDINGS:The bowel gas pattern is unremarkable. No pathologically dilated bowelloops. A pigtail tube is noted with the tip at the right upper quadrant.No radiopaque stones or abnormal calcifications are identified.No acute bony abnormality is present.IMPRESSIONPositioning dictated draining the right upper quadrant. Nopneumoperitoneum.Preliminary Report Dictated by Resident: Abhijit Chang MD., have reviewed this study and agree with theabove report.[facility] (NA, K, CL, CO2, GLUCOSE, BUN, CREATININE, CA)2020-05-25 22:49:00 Test Item Value Reference Range Interpretation Comments NA (test code = 136 mmol/L 135-145 9635045202) K (test code = 4.5 mmol/L 3.5-5 2546434230) CL (test code = 105 mmol/L 98-108 0291937116) CO2 TOTAL (test code = 22 mmol/L 23-31 L 5932102654) AGAP (test code = 2-16 9243441679) BUN (test code = 24 mg/dL 7-23 H 8335031008) GLUCOSE (test code = 101 mg/dL 70-110 7793607485) CREATININE (test code = 0.74 mg/dL 0.6-1.25 2333360504) CALCIUM (test code = 8.6 mg/dL 8.6-10.6 0641737570) eGFR Calculation mL/min/1.73m2 (Non-) (test code = 9451435742) eGFR Calculation mL/min/1.73m2 () (test code = 2072378246) GILBERTO (test code = GILBERTO) Association of Glomerular Filtration Rate (GFR) and Staging of Kidney Disease* + --+ --+ ------+| GFR (mL/min/1.73 m2) ?| With Kidney Damage ?| ?Without Kidney Damage+ --------+ --------+ +| ?>90 ?| ?Stage one ?| ? Normal ?+ ---+ ---+ -------+| ?60-89 ?| ?Stage two ?| ? Decreased GFR ? + --+ --+ ------+| ?30-59 ?| ?Stage three ?| ? Stage three ? + --+ --+ ------+| ?15-29 ?| ?Stage four ? | ? Stage four ?+ ---+ ---+ -------+| ?<15 (or dialysis) ? ?| ?Stage five ? | ? Stage five ?+ ---+ ---+ -------+ *Each stage assumes the associated GFR level has been in effect for at least three months. ?Stages 1 to 5, with or without kidney disease, indicate chronic kidney disease. Notes: Determination of stages one and two (with eGFR >59mL/min/1.73 m2) requires estimation of kidney damage for at least three months as defined by structural or functional abnormalities of the kidney, manifested by either:Pathological abnormalities or Markers of kidney damage (including abnormalities in the composition of the blood or urine or abnormalities in imaging tests). Lab Interpretation Abnormal (test code = 22478-3) [facility] CenterMAGN[facility]IUM2020-10-02 22:11:00 Test Item Value Reference Range Interpretation Comments MAGNESIUM (test code = 0098106164) 2.0 mg/dL 1.7-2.4 Lab Interpretation (test code = Normal 35080-1) [facility] CenterPHOSPHORUS2020-10-02 22:11:00 Test Item Value Reference Range Interpretation Comments PHOSPHORUS (test code = 0292968758) 3.1 mg/dL 2.5-5 Lab Interpretation (test code = Normal 72965-2) [facility] CenterCB WITH [id number] 21:51:00 Test Item Value Reference Range Interpretation Comments WBC (test code = See_Comment [Automated 9262-2) message] The sy stem which generated this result transmitted reference range : 4.20 - 10.70 10*3/?L. The reference range was not used to interpret this result as normal/abnormal . RBC (test code = See_Comment [Automated 318-9) message] The sy stem which generated this result transmitted reference range : 4.26 - 5.52 10*6/?L. The reference range was not used to interpret this result as normal/abnormal . HGB (test code = 11.1 g/dL 12.2-16.4 L 718-7) HCT (test code = 35.4 % 38.4-49.3 L 4544-3) MCV (test code = 82.3 fL 81.7-95.6 787-2) MCH (test code = 25.8 pg 26.1-32.7 L 785-6) MCHC (test code = 31.4 g/dL 31.2-35 786-4) RDW-SD (test code = 53.1 fL 38.5-51.6 H 98336-5) RDW-CV (test code = 17.9 % 12.1-15.4 H 788-0) PLT (test code = See_Comment [Automated 777-3) message] The sy stem which generated this result transmitted reference range : 150 - 328 10*3/ ?L. The reference r meredith was not used to interpret this result as normal/abnormal . MPV (test code = 9.1 fL 9.8-13 L 57844-8) NRBC/100 WBC (test See_Comment [Automat ed code = 6140159624) message] The system which generated this result transmitted reference range : 0.0 - 10.0 /100 WBCs. The refer ence range was not u sed to interpret th is result as normal/abnormal . NRBC x10^3 (test code <0.01 See_Comment [Auto mated = 1871582745) message] The s ystem which generated this result transmitted reference range : 10*3/?L. The reference range was not used to interpret this result as normal/abnormal . GRAN MAT (NEUT) % 73.4 % (test code = 770-8) IMM GRAN % (test code 0.50 % = 8128124765) LYMPH % (test code = 17.9 % 736-9) MONO % (test code = 5.2 % 5905-5) EOS % (test code = 2.5 % 713-8) BASO % (test code = 0.5 % 706-2) GRAN MAT x10^3(ANC) 4.05 10*3/uL 1.99-6.95 (test code = 2697821635) IMM GRAN x10^3 (test 0.03 10*3/uL 0-0.06 code = 4303538705) LYMPH x10^3 (test code 0.99 10*3/uL 1.09-3.23 L = 731-0) MONO x10^3 (test code 0.29 10*3/uL 0.36-1.02 L = 742-7) EOS x10^3 (test code = 0.14 10*3/uL 0.06-0.53 711-2) BASO x10^3 (test code 0.03 10*3/uL 0.01-0.09 = 704-7) Lab Interpretation Abnormal (test code = 26767-3) [facility] METABOLIC PANEL (NA, K, CL, CO2, GLUCOSE, BUN, CREATININE, CA)2020-05-25 09:24:00 Test Item Value Reference Range Interpretation Comments NA (test code = 135 mmol/L 135-145 6967523693) K (test code = 5.3 mmol/L 3.5-5 H Slight 8664781635) hemolysis CL (test code = 104 mmol/L 98-108 1850898582) CO2 TOTAL (test code 24 mmol/L 23-31 = 7986259577) AGAP (test code = 2-16 8574857338) BUN (test code = 22 mg/dL 7-23 Slight 1907224161) hemolysis GLUCOSE (test code = 96 mg/dL 70-110 1098617501) CREATININE (test code 0.73 mg/dL 0.6-1.25 = 4190637158) CALCIUM (test code = 8.2 mg/dL 8.6-10.6 L 7082870978) eGFR Calculation mL/min/1.73m2 (Non-) (test code = 9253277893) eGFR Calculation mL/min/1.73m2 () (test code = 1560481238) GILBERTO (test code = GILBERTO) Association of Glomerular Filtration Rate (GFR) and Staging of Kidney Disease* + -----+ --------+ +| GFR (mL/min/1.73 m2) ?| With Kidney Damage ?| ?Without Kidney Damage+ +------- +---- --+| ?>90 ?| ?Stage one ?| ? Normal ?+ ------+ ---------+--------- +| ?60-89 ?| ?Stage two ?| ? Decreased GFR ? + -----+ --------+ +| ?30-59 ?| ?Stage three ?| ? Stage three ? + -----+ --------+ +| ?15-29 ?| ?Stage four ? | ? Stage four ?+ ------+ ---------+--------- +| ?<15 (or dialysis) ? ?| ?Stage five ? | ? Stage five ?+ ------+ ---------+--------- + *Each stage assumes the associated GFR level has been in effect for at least three months. ?Stages 1 to 5, with or without kidney disease, indicate chronic kidney disease. Notes: Determination of stages one and two (with eGFR >59mL/min/1.73 m2) requires estimation of kidney damage for at least three months as defined by structural or functional abnormalities of the kidney, manifested by either:Pathological abnormalities or Markers of kidney damage (including abnormalities in the composition of the blood or urine or abnormalities in imaging tests). Lab Interpretation Abnormal (test code = 83028-4) [facility]MAG[facility]UM2020-10-02 09:24:00 Test Item Value Reference Range Interpretation Comments MAGNESIUM (test code = 1478428199) 2.3 mg/dL 1.7-2.4 Lab Interpretation (test code = Normal 10334-7) [facility]PH[facility]2020-10-02 09:24:00 Test Item Value Reference Range Interpretation Comments PHOSPHORUS (test code = 6581628721) 3.4 mg/dL 2.5-5 Lab Interpretation (test code = Normal 56271-0) [facility] CenterBASIC METABOLIC PANEL (NA, K, CL, CO2, GLUCOSE, BUN, CREATININE, CA)2020-05-24 21:00:00 Test Item Value Reference Range Interpretation Comments NA (test code = 135 mmol/L 135-145 2861329447) K (test code = 4.3 mmol/L 3.5-5 3154604510) CL (test code = 102 mmol/L 98-108 9250340197) CO2 TOTAL (test code = 25 mmol/L 23-31 7444343142) AGAP (test code = 2-16 0626544053) BUN (test code = 20 mg/dL 7-23 6416125976) GLUCOSE (test code = 102 mg/dL 70-110 3564782560) CREATININE (test code 0.97 mg/dL 0.6-1.25 = 2309711940) CALCIUM (test code = 9.0 mg/dL 8.6-10.6 1836446166) eGFR Calculation mL/min/1.73m2 (Non-) (test code = 8465716635) eGFR Calculation mL/min/1.73m2 () (test code = 8249798922) GILBERTO (test code = GILBERTO) Association of Glomerular Filtration Rate (GFR) and Staging of Kidney Disease* + -+ + ---+| GFR (mL/min/1.73 m2) ?| With Kidney Damage ?| ?Without Kidney Damage+ -------+ ------+ ---------+| ?>90 ?| ?Stage one ?| ? Normal ?+ --+ -+ ----+| ?60-89 ?| ?Stage two ?| ? Decreased GFR ? + -+ + ---+| ?30-59 ?| ?Stage three ?| ? Stage three ? + -+ + ---+| ?15-29 ?| ?Stage four ? | ? Stage four ?+ --+ -+ ----+| ?<15 (or dialysis) ? ?| ?Stage five ? | ? Stage five ?+ --+ -+ ----+ *Each stage assumes the associated GFR level has been in effect for at least three months. ?Stages 1 to 5, with or without kidney disease, indicate chronic kidney disease. Notes: Determination of stages one and two (with eGFR >59mL/min/1.73 m2) requires estimation of kidney damage for at least three months as defined by structural or functional abnormalities of the kidney, manifested by either:Pathological abnormalities or Markers of kidney damage (including abnormalities in the composition of the blood or urine or abnormalities in imaging tests). [facility]2020-10-01 21:00:00 Test Item Value Reference Range Interpretation Comments MAGNESIUM (test code = 5701735365) 1.5 mg/dL 1.7-2.4 L Lab Interpretation (test code = Abnormal 98338-2) [facility]2020-10-01 20:58:00 Test Item Value Reference Range Interpretation Comments PHOSPHORUS (test code = 2879372601) 3.3 mg/dL 2.5-5 Lab Interpretation (test code = Normal 05914-6) [id number] 11:31:00 Test Item Value Reference Range Interpretation Comments WBC (test code = See_Comment [Automated 6690-2) message] The sy stem which generated this result transmitted reference range : 4.20 - 10.70 10*3/?L. The reference range was not used to interpret this result as normal/abnormal . RBC (test code = See_Comment L [Automated 789-8) message] The sy stem which generated this result transmitted reference range : 4.26 - 5.52 10*6/?L. The reference range was not used to interpret this result as normal/abnormal . HGB (test code = 10.4 g/dL 12.2-16.4 L 718-7) HCT (test code = 32.9 % 38.4-49.3 L 4544-3) MCV (test code = 81.6 fL 81.7-95.6 L 787-2) MCH (test code = 25.8 pg 26.1-32.7 L 785-6) MCHC (test code = 31.6 g/dL 31.2-35 786-4) RDW-SD (test code = 51.9 fL 38.5-51.6 H 89789-8) RDW-CV (test code = 17.6 % 12.1-15.4 H 788-0) PLT (test code = See_Comment H [Automated 777-3) message] The sy stem which generated this result transmitted reference range : 150 - 328 10*3/ ?L. The reference r meredith was not used to interpret this result as normal/abnormal . MPV (test code = 9.0 fL 9.8-13 L 78185-9) NRBC/100 WBC (test See_Comment [Automat ed code = 7514431654) message] The system which generated this result transmitted reference range : 0.0 - 10.0 /100 WBCs. The refer ence range was not u sed to interpret th is result as normal/abnormal . NRBC x10^3 (test code <0.01 See_Comment [Auto mated = 5586741450) message] The s ystem which generated this result transmitted reference range : 10*3/?L. The reference range was not used to interpret this result as normal/abnormal . GRAN MAT (NEUT) % 66.0 % (test code = 770-8) IMM GRAN % (test code 0.20 % = 8984503592) LYMPH % (test code = 20.3 % 736-9) MONO % (test code = 10.4 % 5905-5) EOS % (test code = 2.6 % 713-8) BASO % (test code = 0.5 % 706-2) GRAN MAT x10^3(ANC) 4.33 10*3/uL 1.99-6.95 (test code = 5694379194) IMM GRAN x10^3 (test <0.03 0-0.06 code = 3458510114) LYMPH x10^3 (test code 1.33 10*3/uL 1.09-3.23 = 731-0) MONO x10^3 (test code 0.68 10*3/uL 0.36-1.02 = 742-7) EOS x10^3 (test code = 0.17 10*3/uL 0.06-0.53 711-2) BASO x10^3 (test code 0.03 10*3/uL 0.01-0.09 = 704-7) Lab Interpretation Abnormal (test code = 67999-6) [facility] CenterCT [facility] PEL[facility] W [id number] 17:39:05 Since 05/19/2020 slight increase in size of collection in the rightparacolic gutter, interval post removal of the right lower quadrant drain. The left diaphragmatic and right perihepatic are unchanged with drains insitu as above. CT ABDOMEN PELVIS W CONTRAST 05/23/2020 9:50 AM HISTORY: fluid collections , eval for IR drainage. 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 Concern for displacement of the RLQ drain COMPARISON: CT abdomen pelvis 05/23/2020 DOSE: 369.5 mGy-cm TECHNIQUE: Axial images of the abdomen and pelvis were acquired afteradministration of 100 ml Omnipaque 350. Coronal and sagittalreconstructions were also created. FINDINGS: LOWERCHEST: Small left pleural effusion and adjacent lung atelectasis. HEPATOBILIARY: No hepatomegaly. Nobiliary ductal dilatation.. No biliaryductal dilatation. No hyperdense stone. Pericholecystic stranding likelysecondary to adjacent subphrenic collection. SPLEEN: No splenomegaly. PANCREAS: No ductal dilation, or solid masses. ADRENAL GLANDS: No adrenal nodules. KIDNEYS: No hydronephrosis or stone. Nosolid mass. GI TRACT/PERITONEUM: Postsurgical changes of total colectomy and ileostomyin the right lower quadrant.. The Aaron pouch is noted. No boweldistention. There are multiple T12 organized collection as follow: Unchanged left subphrenic fluid collection currently measures 3.5 x 2.5 x1.4 cm. Unchanged percutaneous drain anterior inferior aspect of thiscollection. Unchanged right perihepatic gas and fluid collection anterior to thegallbladder measuring 2.5 x 1.8 x 6.9 cm. Unchanged percutaneous drain isnoted in the inferior aspect of the collection. Interval removal of the drain in the rightlower quadrant collection alongthe right paracolic gutter. The collection currently measures 2.5 x 0.9 x2.9 cm collection, previously 1.9 x 1.4 x 1.4 cm. Marked edema and stranding of bilateral paracolic gutters. Unchanged traceascites. LYMPH NODES: No lymphadenopathy is seen. PELVIS/BLADDER: Unremarkable. VESSELS: No aortic aneurysm or critical stenosis. . BONES AND SOFT TISSUES: Stable within L4 victoriano tebral body since priorexamination dated back to 2017 suggestive of benign lesion. [facility], Radiant Results Inft User - 05/23/2020 12:40 PM CDTCT ABDOMEN PELVIS W CONTRAST 05/23/2020 9:50 AMHISTORY: fluid collections, eval for IR drainage. 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 Concern for displacement of the RLQ drainCOMPARISON: CT abdomen pelvis 05/23/2020DOSE: 369.5 mGy- cmTECHNIQUE: Axial images of the abdomen and pelvis were acquired afteradmi nistration of 100 ml Omnipaque 350. Coronal and sagittalreconstructions were also created.FINDINGS:LOWER CHEST: Small left pleural effusion and adjacent lung atelectasis.HEPATOBILIARY: No hepatomegaly.No biliary ductal dilatation.. No biliaryductal dilatation. No hyperdense stone. Pericholecystic stranding likelysecondary to adjacent subphrenic collection.SPLEEN: No splenomegaly.PANCREAS: No ductal dilation, or solid masses.ADRENAL GLANDS: No adrenal nodules.KIDNEYS: No hydronephrosis or stone. No solid mass.GI TRACT/PERITONEUM: Postsurgical changes of total colectomy and ileostomyin the right lower quadrant.. The Aaron pouch is noted. No boweldistention.There are multiple T12 organized collection as follow:Unchanged left subphrenic fluid collection currently measures 3.5 x 2.5 x1.4 cm. Unchanged percutaneous drain anterior inferior aspect of thiscollection.Unchanged right perihepatic gas and fluid collection anterior to thegallbladder measuring 2.5 x 1.8 x 6.9 cm. Unchanged percutaneous drain isnoted in the inferior aspect of the collection.Interval removal of the drain in the right lowerquadrant collection alongthe right paracolic gutter. The collection currently measures 2.5 x 0.9 x2.9 cm collection, previously 1.9 x 1.4 x 1.4 cm.Marked edema and stranding of bilateral paracolic gutters. Unchanged traceascites.LYMPH NODES: No lymphadenopathy is seen.PELVIS/BLADDER: Unremarkable.VESSELS: No aortic aneurysm or critical stenosis. .BONES AND SOFT TISSUES: Stable within L4 vertebral body since priorexamination dated back to 2017 suggestive of benign lesion.IMPRESSIONSince 05/19/2020 slight increase in size of collection in the rightparacolic gutter, interval post removal of the right lower quadrant drain. The left diaphragmatic and right perihepatic are unchanged with drains insitu as above.[facility] (NA, K, CL, CO2, Glucose, BUN, Creatinine, CA)2020-05-23 10:25:00 Test Item Value Reference Range Interpretation Comments NA (test code = 135 mmol/L 135-145 0566517351) K (test code = 3.7 mmol/L 3.5-5 7085003004) CL (test code = 105 mmol/L 98-108 9711639994) CO2 TOTAL (test code = 24 mmol/L 23-31 0456475373) AGAP (test code = 2-16 9654835404) BUN (test code = 19 mg/dL 7-23 1337688071) GLUCOSE (test code = 117 mg/dL 70-110 H 5802012669) CREATININE (test code = 0.74 mg/dL 0.6-1.25 0410125857) CALCIUM (test code = 7.3 mg/dL 8.6-10.6 L 6585913295) eGFR Calculation mL/min/1.73m2 (Non-) (test code = 5725219134) eGFR Calculation mL/min/1.73m2 () (test code = 8588902338) GILBERTO (test code = GILBERTO) Association of Glomerular Filtration Rate (GFR) and Staging of Kidney Disease* + --+ --+ ------+| GFR (mL/min/1.73 m2) ?| With Kidney Damage ?| ?Without Kidney Damage+ --------+ --------+ +| ?>90 ?| ?Stage one ?| ? Normal ?+ ---+ ---+ -------+| ?60-89 ?| ?Stage two ?| ? Decreased GFR ? + --+ --+ ------+| ?30-59 ?| ?Stage three ?| ? Stage three ? + --+ --+ ------+| ?15-29 ?| ?Stage four ? | ? Stage four ?+ ---+ ---+ -------+| ?<15 (or dialysis) ? ?| ?Stage five ? | ? Stage five ?+ ---+ ---+ -------+ *Each stage assumes the associated GFR level has been in effect for at least three months. ?Stages 1 to 5, with or without kidney disease, indicate chronic kidney disease. Notes: Determination of stages one and two (with eGFR >59mL/min/1.73 m2) requires estimation of kidney damage for at least three months as defined by structural or functional abnormalities of the kidney, manifested by either:Pathological abnormalities or Markers of kidney damage (including abnormalities in the composition of the blood or urine or abnormalities in imaging tests). Lab Interpretation Abnormal (test code = 12014-3) [facility] Branch[facility] COVID-19 [id number] 07:40:00 Test Item Value Reference Range Interpretation Comments SARS-CoV-2 Rapid ID NOW Not Detected Not Detected (test code = 57421-5) GILBERTO (test code = GILBERTO) ID NOW COVID-19 Assay is an isothermal nucleic acid amplification test intended for the qualitative detection of nucleic acid from SARS-CoV-2 viral RNA in nasopharyngeal (HUMAN GEOGRAPHY INSTRUCTOR) specimens. It is used under Emergency Use Authorization (EUA) by FDA. The limit of detection (LOD) of the assay is 125 Genome Equivalents/mL. A positive result is indicative of the presence of SARS-CoV-2 RNA. ?Clinical correlation with patient history and other diagnostic information is necessary to determine patient infection status. A negative (Not Detected) result does not preclude SARS-CoV-2 infection. In patients with clinical symptoms and other tests that are consistent with SARS-CoV-2 infection, negative results should be treated as presumptive negative and a new specimen should be tested with alternative PCR molecular test. Invalid: Please collect a new specimen for repeat patient testing if clinically indicated. Lab Interpretation Normal (test code = 56282-6) [facility] CenterUrinalysis2020-09-29 22:41:00 Test Item Value Reference Range Interpretation Comments APPEARANCE (test code = Hazy Clear A 8198430482) COLOR (test code = Yellow Yellow 8540035574) PH (test code = 4.8-8.0 4487920658) SP GRAVITY (test code = 1.003-1.030 5563735944) GLU U QUAL (test code = Normal Normal 3396831699) BLOOD (test code = Negative Negative 1461191896) KETONES (test code = Negative Negative 0612009351) PROTEIN (test code = 30 mg/dL Negative A 2887-8) UROBILIN (test code = Normal Normal 8701294021) BILIRUBIN (test code = Negative Negative 5097977304) NITRITE (test code = Negative Negative 1747440009) LEUK ROGER (test code = Negative Negative 5557260833) RBC/HPF (test code = See_Comment H [Autom ated message] 7710605988) The system [employer] generated this result transmitted ref erence range: 0 - 3 HP F. The reference range was not used to int erpret this result as normal/abnormal . WBC/HPF (test code = See_Comment H [Autom ated message] 4695854998) The system [employer] generated this result transmitted ref erence range: 0 - 5 HP F. The reference range was not used to int erpret this result as normal/abnormal . BACTERIA (test code = Negative Negative 1828869027) MUCOUS (test code = Moderate Negative LPF A 5861338435) SQ EPITH (test code = See_Comment [Auto mated message] 1267016774) The system [employer] generated this result transmitted ref erence range: <=2 HPF. The reference range was not used to int erpret this result as normal/abnormal . CA OXALATE (test code = See_Comment H [Au tomated message] 5824962843) The system [employer] generated this result transmitted ref erence range: <=1 HPF. The reference range was not used to int erpret this result as normal/abnormal . HYAL CAST (test code = See_Comment H [Aut omated message] 0055282425) The system [employer] generated this result transmitted ref erence range: <=2 LPF. The reference range was not used to int erpret this result as normal/abnormal . Lab Interpretation (test Abnormal code = 55898-9) [facility] Metabolic Panel (NA, K, CL, CO2, GLUCOSE, BUN, CREATININE, CA)2020-05-22 21:46:00 Test Item Value Reference Range Interpretation Comments NA (test code = 134 mmol/L 135-145 L 3725881280) K (test code = 5.0 mmol/L 3.5-5 1090877646) CL (test code = 103 mmol/L 98-108 5262244524) CO2 TOTAL (test code = 25 mmol/L 23-31 1086471075) AGAP (test code = 2-16 6204311892) BUN (test code = 24 mg/dL 7-23 H 4953209931) GLUCOSE (test code = 102 mg/dL 70-110 6643031087) CREATININE (test code = 0.87 mg/dL 0.6-1.25 2043575703) CALCIUM (test code = 9.2 mg/dL 8.6-10.6 7923374932) eGFR Calculation mL/min/1.73m2 (Non-) (test code = 3848567666) eGFR Calculation mL/min/1.73m2 () (test code = 8305000410) GILBERTO (test code = GILBERTO) Association of Glomerular Filtration Rate (GFR) and Staging of Kidney Disease* + --+ --+ ------+| GFR (mL/min/1.73 m2) ?| With Kidney Damage ?| ?Without Kidney Damage+ --------+ --------+ +| ?>90 ?| ?Stage one ?| ? Normal ?+ ---+ ---+ -------+| ?60-89 ?| ?Stage two ?| ? Decreased GFR ? + --+ --+ ------+| ?30-59 ?| ?Stage three ?| ? Stage three ? + --+ --+ ------+| ?15-29 ?| ?Stage four ? | ? Stage four ?+ ---+ ---+ -------+| ?<15 (or dialysis) ? ?| ?Stage five ? | ? Stage five ?+ ---+ ---+ -------+ *Each stage assumes the associated GFR level has been in effect for at least three months. ?Stages 1 to 5, with or without kidney disease, indicate chronic kidney disease. Notes: Determination of stages one and two (with eGFR >59mL/min/1.73 m2) requires estimation of kidney damage for at least three months as defined by structural or functional abnormalities of the kidney, manifested by either:Pathological abnormalities or Markers of kidney damage (including abnormalities in the composition of the blood or urine or abnormalities in imaging tests). Lab Interpretation Abnormal (test code = 60055-5) [facility] CenterHepatic Function Panel (ALB, T.PRO, BILI T, BU/BC, ALT, AST, ALK PHOS)2020-05-22 21:46:00 Test Item Value Reference Range Interpretation Comments TOTAL BILI (test code = 8034957524) 0.4 mg/dL 0.1-1.1 BILI UNCON (test code = 3457342269) 0.2 mg/dL 0.1-1.1 BILI CONJ (test code = 2668772014) 0.0 mg/dL 0-0.3 T PROTEIN (test code = 7896208578) 6.5 g/dL 6.3-8.2 ALBUMIN (test code = 4783288101) 3.6 g/dL 3.5-5 ALK PHOS (test code = 8255215959) 96 U/L 34-122 ALTv (test code = 1742-6) 22 U/L 5-50 AST(SGOT) (test code = 7673651874) 28 U/L 13-40 Lab Interpretation (test code = Normal 87915-5) [facility] CenterLipase [id number] 21:46:00 Test Item Value Reference Range Interpretation Comments LIPASE (test code = 6953176602) 95 U/L 0-220 Lab Interpretation (test code = Normal 89259-5) [facility] CenteraPTT2020-09-29 21:46:00 Test Item Value Reference Range Interpretation Comments APTT Patient (test code = See_Comment [ Automated message] 3173-2) The system [employer] generated this result transmitted ref erence range: 26 - 36 Seconds. The re ference range was not u sed to interpret this result as normal/abnor mal. Lab Interpretation (test Normal code = 94508-4) [facility] CenterProthrombin Time (PT) / [id number] 21:46:00 Test Item Value Reference Range Interpretation Comments PROTIME PATIENT (test See_Comment H [Auto mated message] code = 5964-2) The system [employer] generated this result transmitted ref erence range: 10.1 - 1 2.6 Seconds. The reference range was not used to int erpret this result as normal/abnormal . INR (test code = 6301-6) Nor mal INR <1.1; Warfarin Therap eutic range 2.0 to 3. 0 or 2.5 to 3.5, dep ending upon the indica tions. Lab Interpretation (test Abnormal code = 81983-0) [facility] CenterCBC with [id number] 21:41:00 Test Item Value Reference Range Interpretation Comments WBC (test code = See_Comment [Automated 0290-2) message] The sy stem which generated this result transmitted reference range : 4.20 - 10.70 10*3/?L. The reference range was not used to interpret this result as normal/abnormal . RBC (test code = See_Comment L [Automated 089-8) message] The sy stem which generated this result transmitted reference range : 4.26 - 5.52 10*6/?L. The reference range was not used to interpret this result as normal/abnormal . HGB (test code = 10.0 g/dL 12.2-16.4 L 718-7) HCT (test code = 31.3 % 38.4-49.3 L 4544-3) MCV (test code = 82.6 fL 81.7-95.6 787-2) MCH (test code = 26.4 pg 26.1-32.7 785-6) MCHC (test code = 31.9 g/dL 31.2-35 786-4) RDW-SD (test code = 53.0 fL 38.5-51.6 H 82650-0) RDW-CV (test code = 17.6 % 12.1-15.4 H 788-0) PLT (test code = See_Comment H [Automated 777-3) message] The sy stem which generated this result transmitted reference range : 150 - 328 10*3/ ?L. The reference r meredith was not used to interpret this result as normal/abnormal . MPV (test code = 9.1 fL 9.8-13 L 92231-1) NRBC/100 WBC (test See_Comment [Automat ed code = 7559863264) message] The system which generated this result transmitted reference range : 0.0 - 10.0 /100 WBCs. The refer ence range was not u sed to interpret th is result as normal/abnormal . NRBC x10^3 (test code <0.01 See_Comment [Auto mated = 3770085606) message] The s ystem which generated this result transmitted reference range : 10*3/?L. The reference range was not used to interpret this result as normal/abnormal . GRAN MAT (NEUT) % 77.4 % (test code = 770-8) IMM GRAN % (test code 0.50 % = 9032666366) LYMPH % (test code = 15.8 % 736-9) MONO % (test code = 4.9 % 5905-5) EOS % (test code = 0.8 % 713-8) BASO % (test code = 0.6 % 706-2) GRAN MAT x10^3(ANC) 5.04 10*3/uL 1.99-6.95 (test code = 4555820872) IMM GRAN x10^3 (test 0.03 10*3/uL 0-0.06 code = 6216623027) LYMPH x10^3 (test code 1.03 10*3/uL 1.09-3.23 L = 731-0) MONO x10^3 (test code 0.32 10*3/uL 0.36-1.02 L = 742-7) EOS x10^3 (test code = 0.05 10*3/uL 0.06-0.53 L 711-2) BASO x10^3 (test code 0.04 10*3/uL 0.01-0.09 = 704-7) Lab Interpretation Abnormal (test code = 51016-7) [facility] 1 [id number] 21:19:32CHEST ONE VIEW HISTORY: ?Weakness TECHNIQUE: ?AP view of the chest is obtained. COMPARISON: 04/23/2020 FINDINGS: Lungs are clear. Blunting of the left costophrenic angle is seen. Heartsize is normal. A pigtail catheter remains in the left upper quadrant ofthe abdomen. No pneumothorax is seen. CONCLUSIONS: Blunting of the left costophrenic angle suggests a leftpleural effusion. [facility], Radiant Results Inft User - 05/22/2020 4:20 PM CDTCHEST ONE VIEWHISTORY: WeaknessTECHNIQUE: AP view of the chest is obtained.COMPARISON: 04/23/2020FINDINGS:Lungs are clear. Blunting of the left costophrenic angle is seen.Heartsize is normal. A pigtail catheter remains in the left upper quadrant ofthe abdomen. No pneumothorax is seen.CONCLUSIONS: Blunting of the left costophrenic angle suggests a leftpleural effusion.[facility] CenterCOVID-19 (ID NOW RAPID TESTING) 2020-05-20 10:09:00 Test Item Value Reference Range Interpretation Comments SARS-CoV-2 Rapid ID NOW Not Detected Not Detected (test code = 38152-9) GILBERTO (test code = GILBERTO) ID NOW COVID-19 Assay is an isothermal nucleic acid amplification test intended for the qualitative detection of nucleic acid from SARS-CoV-2 viral RNA in nasopharyngeal (HUMAN GEOGRAPHY INSTRUCTOR) specimens. It is used under Emergency Use Authorization (EUA) by FDA. The limit of detection (LOD) of the assay is 125 Genome Equivalents/mL. A positive result is indicative of the presence of SARS-CoV-2 RNA. ?Clinical correlation with patient history and other diagnostic information is necessary to determine patient infection status. A negative (Not Detected) result does not preclude SARS-CoV-2 infection. In patients with clinical symptoms and other tests that are consistent with SARS-CoV-2 infection, negative results should be treated as presumptive negative and a new specimen should be tested with alternative PCR molecular test. Invalid: Please collect a new specimen for repeat patient testing if clinically indicated. Lab Interpretation Normal (test code = 34882-8) [facility] CenterURINALYSIS2020-09-27 10:07:00 Test Item Value Reference Range Interpretation Comments APPEARANCE (test code = Clear Clear 7069424759) COLOR (test code = Yellow Yellow 2278250979) PH (test code = 4.8-8.0 6126101926) SP GRAVITY (test code = 1.003-1.030 H 6855935518) GLU U QUAL (test code = Normal Normal 0776105366) BLOOD (test code = Negative Negative 5119760062) KETONES (test code = Negative Negative 1522900074) PROTEIN (test code = Negative Negative 2887-8) UROBILIN (test code = Normal Normal 6366823480) BILIRUBIN (test code = Negative Negative 3021223755) NITRITE (test code = Negative Negative 1573810768) LEUK ROGER (test code = Negative Negative 6444991993) RBC/HPF (test code = See_Comment [Autom ated message] 8172282725) The system [employer] generated this result transmitted ref erence range: 0 - 3 HP F. The reference range was not used to int erpret this result as normal/abnormal . WBC/HPF (test code = See_Comment [Autom ated message] 3815304030) The system [employer] generated this result transmitted ref erence range: 0 - 5 HP F. The reference range was not used to int erpret this result as normal/abnormal . BACTERIA (test code = Negative Negative 2966743942) MUCOUS (test code = Slight Negative LPF A 1487606575) SQ EPITH (test code = See_Comment [Auto mated message] 6075012336) The system [employer] generated this result transmitted ref erence range: <=2 HPF. The reference range was not used to int erpret this result as normal/abnormal . HYAL CAST (test code = See_Comment H [Aut omated message] 5504210178) The system [employer] generated this result transmitted ref erence range: <=2 LPF. The reference range was not used to int erpret this result as normal/abnormal . Lab Interpretation (test Abnormal code = 48667-2) [facility] CenterCT ABDOMEN PELVIS W [id number] 04:28:40Impression: 1. Multiple rim-enhancing fluid and gas collections noted in the rightperihepatic region, left perisplenic region, and bilateral subphrenicabdomen, likely representing abscesses. Percutaneous drainage catheters arenoted in the right perihepatic fluid collection, right lower quadrant, andleft upper quadrant. Tip of the left upper quadrant drainage catheter maybe positioned peripherally within either the perisplenic or subphreniccollection.2. Interval subtotal colectomy and right lower quadrant ileostomy.3. No evidence of bowel obstruction. Small bowel mucosal fold thickening,which may reflect enteritis.4. Trace abdominal ascites. Small bilateral pleural effusions, possiblyloculated on the left. RL: 2824AFC: [id number] End of Report Exam: CT Abdomen and Pelvis With Contrast, 05/19/2020 10:15 PM. Ordering Physician: JONAH HEREDIA. History: Abdominal pain. Technique: CT abdomen and pelvis was obtained with intravenous contrast. CT was performed according to ALARA (As Low As Reasonably Achievable). Comparison: 03/30/2020. Findings: CT Abdomen:Small bilateral pleural effusions with bibasilar atelectasis. Left pleuraleffusion has aloculated appearance, with surrounding thickened pleuralsurfaces. Left hemidiaphragm is mildly elevated. ?Heart size is normal. Gallbladder is contracted. Liver, pancreas, spleen, and adrenal glands arewithin normal limits. There is no pancreatic or biliary duct dilatation. Kidneys are symmetric in siz e, enhancement, and contrast excretion. Thereis no hydronephrosis or hydroureter. There is trace bilateral abdominal ascites. No free air is noted. There isno abdominal adenopathy. Abdominal aorta is normal in caliber anddemonstrates mild calcified plaque. Stomach is unremarkable. There is diffuse small bowel mucosal foldthickening. There is no evidence of bowel obstruction. Appendix is normal.Changes of subtotal colectomy are noted, with right lower quadrantileostomy. Rim-enhancing fluid and gas collection is demonstrated in theright anterior perihepatic region, measuring up to 11.4 x 4.1 x 2.2 cm. Percutaneous drainage catheter enters the inferior aspect of thiscollection via the right anterior abdominal approach. Additional elongated,multiloculated anterior subphrenic collection is demonstratedspanning theupper abdomen, measuring up to 15.6 x 1.3 x 2.1 cm. Percutaneous drainagecatheter via left anterior abdominal approach enters the left upperquadrant in the subphrenic region. Perisplenic, rim-enhancing fluidcollection in the left upper quadrant measures up to 5.7 x 1.8 x 4.7 cm.Additional percutaneous drainage catheter the right anterolateral lowerabdominal approach terminates in the right lower quadrant in the region ofthe right paracolic gutter. Osseous structures are unremarkable. CT Pelvis:Pelvic small bowel loops are unremarkable. 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 ? Urinary bladder demonstrates wall thickening. Prostate and seminal vesiclesare not enlarged. There is no pelvic free fluid. ?There is no pelvic adenopathy. Osseous structures are unremarkable. [facility], Radiant Results Inft User - 05/19/2020 11:29 PM CDTExam: CT Abdomen and Pelvis With Contrast, 05/19/2020 10:15 PM.Ordering Physician: JONAH HEREDIA.History: Abdominal pain.Technique: CT abdomen and pelvis was obtained with intravenous contrast. CT was performed according to ALARA (As Low As Reaso nably Achievable).Comparison: 03/30/2020.Findings: CT Abdomen:Small bilateral pleural effusions with bibasilar atelectasis. Left pleuraleffusion has a loculated appearance, with surrounding thickened pleuralsurfaces. Left hemidiaphragm is mildly elevated. Heart size is normal.Gallbladder is contracted. Liver, pancreas, spleen, and adrenal glands arewithin normal limits. There is no pancreatic or biliary duct dilatation.Kidneys are symmetric in size, enhancement, and contrast excretion. Thereis no hydronephrosis or hydroureter.There is trace bilateral abdominal ascites. No free air is noted. There isno abdominal adenopathy. Abdominal aorta is normal in caliber anddemonstrates mild calcified plaque.Stomach is unremarkable. There is diffuse small bowel mucosal foldthickening. There is no evidence of bowel obstruction. Appendix is normal.Changes of subtotal colectomy are noted, with right lower quadrantileostomy. Rim-enhancing fluid and gas collection is demonstrated in theright anterior perihepatic region, measuring up to 11.4 x 4.1 x 2.2 cm.Percutaneous drainage catheter enters the inferior aspectof thiscollection via the right anterior abdominal approach. Additional elongated,multiloculated anterior subphrenic collection is demonstrated spanning theupper abdomen, measuring up to 15.6 x 1.3 x 2.1 cm. Percutaneous drainagecatheter via left anterior abdominal approach enters the left upperquadrant in the subphrenic region. Perisplenic, rim-enhancing fluidcollection in the left upper quadrant measures up to 5.7 x 1.8 x 4.7 cm.Additional percutaneous drainage catheter the right anterolateral lowerabdominal approach terminates in the right lower quadrant in the region ofthe right paracolic gutter.Osseous structures are unremarkable. CT Pelvis:Pelvic small bowel loops are unremarkable. 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 Urinary bladder demonstrates wall thickening. Prostateand seminal vesiclesare not enlarged.There is no pelvic free fluid. There is no pelvic adenopathy.Osseous structures are unremarkable. IMPRESSIONImpression: 1. Multiple rim-enhancing fluid and gas collections noted in the rightperihepatic region, left perisplenic region, and bilateral subphrenicabdomen, likely representing abscesses. Percutaneous drainage catheters arenoted in the right perihepatic fluid collection, right lower quadrant, andleft upper quadrant. Tip of the left upper quadrant drainage catheter maybe positioned peripherally within either the perisplenic or subphreniccollection.2. Interval subtotal colectomy and right lower quadrant ileostomy.3. No evidence of bowel obstruction. Small bowel mucosal fold thickening,which may reflect enteritis.4. Trace abdominal ascites. Small bilateral pleural effusions, possiblyloculated on the left.RL: [id number]: [id number] of Report [facility] CenterJOEMCLEOD HEALTH SEACOASTTIMMY [id number] 03:44:00 Test Item Value Reference Range Interpretation Comments TROPONIN I (test 0.001 ng/mL See_Comment [Automated code = 2171363359) message] The system which generated this result transmitted reference range : <=0.034. The reference range was not used to interpret this result as normal/abnormal . GILBERTO (test code = Equal or Less than GILBERTO) 0.034 ng/ml---Normal ?Note: Cardiac troponin begins to rise 3-4 hours after the onset of ischemia. Repeat in 4-6 hours if the sample was drawn within 3-4 hours of the onset of the symptom and found normal. Between 0.035 and 0.120 ng/mL--- Borderline. Questionable myocardial injury or necrosis ? ?Note: Serial measurement may be necessary to confirm or exclude the diagnosis of myocardial injury or necrosis; Clinical correlation (symptoms, EKGs, imaging studies, and others) required; Repeat in 4-6 hours if clinically indicated. ? Equal or Higher than 0.121 ng/mL---Abnormal. Myocardial Injury or Necrosis Likely ? Biotin has been reported to cause a negative bias, interpret results relative to patient's use of biotin. ? Lab Interpretation Normal (test code = 96201-4) [facility] ([id number][facility]2020-05-20 03:33:00 Test Item Value Reference Range Interpretation Comments NA (test code = 138 mmol/L 135-145 5477103256) K (test code = 5.3 mmol/L 3.5-5 H 4252154199) CL (test code = 100 mmol/L 98-108 6246713275) CO2 TOTAL (test code = 28 mmol/L 23-31 1981809256) AGAP (test code = 2-16 8081433398) BUN (test code = 27 mg/dL 7-23 H 6001936982) GLUCOSE (test code = 90 mg/dL 70-110 9382712972) CREATININE (test code = 1.25 mg/dL 0.6-1.25 7719147657) TOTAL BILI (test code = 0.2 mg/dL 0.1-1.9 8379776327) CALCIUM (test code = 9.9 mg/dL 8.6-10.6 5511672773) T PROTEIN (test code = 6.8 g/dL 6.3-8.2 0986338621) ALBUMIN (test code = 3.7 g/dL 3.5-5 3326307551) ALK PHOS (test code = 122 U/L 34-122 0069130683) ALTv (test code = 26 U/L 5-50 1742-6) AST(SGOT) (test code = 24 U/L 13-40 5155061501) eGFR Calculation mL/min/1.73m2 (Non-) (test code = 8361307494) eGFR Calculation mL/min/1.73m2 () (test code = 5795379759) GILBERTO (test code = GILBERTO) Association of Glomerular Filtration Rate (GFR) and Staging of Kidney Disease* + --+ --+ ------+| GFR (mL/min/1.73 m2) ?| With Kidney Damage ?| ?Without Kidney Damage+ --------+ --------+ +| ?>90 ?| ?Stage one ?| ? Normal ?+ ---+ ---+ -------+| ?60-89 ?| ?Stage two ?| ? Decreased GFR ? + --+ --+ ------+| ?30-59 ?| ?Stage three ?| ? Stage three ? + --+ --+ ------+| ?15-29 ?| ?Stage four ? | ? Stage four ?+ ---+ ---+ -------+| ?<15 (or dialysis) ? ?| ?Stage five ? | ? Stage five ?+ ---+ ---+ -------+ *Each stage assumes the associated GFR level has been in effect for at least three months. ?Stages 1 to 5, with or without kidney disease, indicate chronic kidney disease. Notes: Determination of stages one and two (with eGFR >59mL/min/1.73 m2) requires estimation of kidney damage for at least three months as defined by structural or functional abnormalities of the kidney, manifested by either:Pathological abnormalities or Markers of kidney damage (including abnormalities in the composition of the blood or urine or abnormalities in imaging tests). Lab Interpretation Abnormal (test code = 48091-1) [facility]00 Test Item Value Reference Range Interpretation Comments LIPASE (test code = 4611559543) 223 U/L 0-220 H Lab Interpretation (test code = Abnormal 65733-6) [facility]MAG[facility]IUM2020-[facility]-27 03:33:00 Test Item Value Reference Range Interpretation Comments MAGNESIUM (test code = 8851736538) 1.7 mg/dL 1.7-2.4 Lab Interpretation (test code = Normal 22006-8) [facility]CB WITH [id number] 03:17:00 Test Item Value Reference Range Interpretation Comments WBC (test code = See_Comment [Automated 6690-2) message] The sy stem which generated this result transmitted reference range : 4.20 - 10.70 10*3/?L. The reference range was not used to interpret this result as normal/abnormal . RBC (test code = See_Comment L [Automated 789-8) message] The sy stem which generated this result transmitted reference range : 4.26 - 5.52 10*6/?L. The reference range was not used to interpret this result as normal/abnormal . HGB (test code = 10.1 g/dL 12.2-16.4 L 718-7) HCT (test code = 31.6 % 38.4-49.3 L 4544-3) MCV (test code = 81.7 fL 81.7-95.6 787-2) MCH (test code = 26.1 pg 26.1-32.7 785-6) MCHC (test code = 32.0 g/dL 31.2-35 786-4) RDW-SD (test code = 49.9 fL 38.5-51.6 29191-5) RDW-CV (test code = 17.2 % 12.1-15.4 H 788-0) PLT (test code = See_Comment H [Automated 777-3) message] The sy stem which generated this result transmitted reference range : 150 - 328 10*3/ ?L. The reference r meredith was not used to interpret this result as normal/abnormal . MPV (test code = 9.3 fL 9.8-13 L 69020-4) NRBC/100 WBC (test See_Comment [Automat ed code = 5425305656) message] The system which generated this result transmitted reference range : 0.0 - 10.0 /100 WBCs. The refer ence range was not u sed to interpret th is result as normal/abnormal . NRBC x10^3 (test code <0.01 See_Comment [Auto mated = 2790777078) message] The s ystem which generated this result transmitted reference range : 10*3/?L. The reference range was not used to interpret this result as normal/abnormal . GRAN MAT (NEUT) % 78.5 % (test code = 770-8) IMM GRAN % (test code 0.50 % = 1908693245) LYMPH % (test code = 11.6 % 736-9) MONO % (test code = 8.4 % 5905-5) EOS % (test code = 0.6 % 713-8) BASO % (test code = 0.4 % 706-2) GRAN MAT x10^3(ANC) 6.16 10*3/uL 1.99-6.95 (test code = 9028200120) IMM GRAN x10^3 (test 0.04 10*3/uL 0-0.06 code = 2811472499) LYMPH x10^3 (test code 0.91 10*3/uL 1.09-3.23 L = 731-0) MONO x10^3 (test code 0.66 10*3/uL 0.36-1.02 = 742-7) EOS x10^3 (test code = 0.05 10*3/uL 0.06-0.53 L 711-2) BASO x10^3 (test code 0.03 10*3/uL 0.01-0.09 = 704-7) Lab Interpretation Abnormal (test code = 53508-4) [facility] Center[facility]EROBIC/ANAEROBIC) 2020-05-10 15:19:00 Test Item Value Reference Range Interpretation Comments BODY FLUID CULT 2+ Clostridioides (test code = (Clostridium) difficile 611-4) Gram stain (test Few PMNs or Mononuclear code = 664-3) cells observed [facility] Center[facility] Met[facility] Panel (NA, K, CL, CO2, GLUCOSE, BUN, CREATININE, CA)2020-05-10 10:27:00 Test Item Value Reference Range Interpretation Comments NA (test code = 132 mmol/L 135-145 L 7983691907) K (test code = 4.0 mmol/L 3.5-5 2669870510) CL (test code = 97 mmol/L 98-108 L 0679998892) CO2 TOTAL (test code = 28 mmol/L 23-31 0426363010) AGAP (test code = 2-16 9099761649) BUN (test code = 12 mg/dL 7-23 2649257310) GLUCOSE (test code = 128 mg/dL 70-110 H 0038300745) CREATININE (test code = 0.63 mg/dL 0.6-1.25 8151956439) CALCIUM (test code = 8.7 mg/dL 8.6-10.6 7150375941) eGFR Calculation mL/min/1.73m2 (Non-) (test code = 5354724844) eGFR Calculation mL/min/1.73m2 () (test code = 8386279961) GILBERTO (test code = GILBERTO) Association of Glomerular Filtration Rate (GFR) and Staging of Kidney Disease* + --+ --+ ------+| GFR (mL/min/1.73 m2) ?| With Kidney Damage ?| ?Without Kidney Damage+ --------+ --------+ +| ?>90 ?| ?Stage one ?| ? Normal ?+ ---+ ---+ -------+| ?60-89 ?| ?Stage two ?| ? Decreased GFR ? + --+ --+ ------+| ?30-59 ?| ?Stage three ?| ? Stage three ? + --+ --+ ------+| ?15-29 ?| ?Stage four ? | ? Stage four ?+ ---+ ---+ -------+| ?<15 (or dialysis) ? ?| ?Stage five ? | ? Stage five ?+ ---+ ---+ -------+ *Each stage assumes the associated GFR level has been in effect for at least three months. ?Stages 1 to 5, with or without kidney disease, indicate chronic kidney disease. Notes: Determination of stages one and two (with eGFR >59mL/min/1.73 m2) requires estimation of kidney damage for at least three months as defined by structural or functional abnormalities of the kidney, manifested by either:Pathological abnormalities or Markers of kidney damage (including abnormalities in the composition of the blood or urine or abnormalities in imaging tests). Lab Interpretation Abnormal (test code = 32982-3) [facility] CenterMagnesium [id number] 10:27:00 Test Item Value Reference Range Interpretation Comments MAGNESIUM (test code = 4225472186) 1.7 mg/dL 1.7-2.4 Lab Interpretation (test code = Normal 55862-6) [facility] CenterPhosphorus [id number] 10:27:00 Test Item Value Reference Range Interpretation Comments PHOSPHORUS (test code = 9197544977) 3.4 mg/dL 2.5-5 Lab Interpretation (test code = Normal 72049-2) [facility] CenterCB with [id number] 10:03:00 Test Item Value Reference Range Interpretation Comments WBC (test code = See_Comment [Automated 6690-2) message] The sy stem which generated this result transmitted reference range : 4.20 - 10.70 10*3/?L. The reference range was not used to interpret this result as normal/abnormal . RBC (test code = See_Comment L [Automated 789-8) message] The sy stem which generated this result transmitted reference range : 4.26 - 5.52 10*6/?L. The reference range was not used to interpret this result as normal/abnormal . HGB (test code = 8.5 g/dL 12.2-16.4 L 718-7) HCT (test code = 26.5 % 38.4-49.3 L 4544-3) MCV (test code = 82.0 fL 81.7-95.6 787-2) MCH (test code = 26.3 pg 26.1-32.7 785-6) MCHC (test code = 32.1 g/dL 31.2-35 786-4) RDW-SD (test code = 47.3 fL 38.5-51.6 03804-7) RDW-CV (test code = 15.7 % 12.1-15.4 H 788-0) PLT (test code = See_Comment H [Automated 777-3) message] The sy stem which generated this result transmitted reference range : 150 - 328 10*3/ ?L. The reference r meredith was not used to interpret this result as normal/abnormal . MPV (test code = 8.9 fL 9.8-13 L 88251-7) NRBC/100 WBC (test See_Comment [Automat ed code = 2965162239) message] The system which generated this result transmitted reference range : 0.0 - 10.0 /100 WBCs. The refer ence range was not u sed to interpret th is result as normal/abnormal . NRBC x10^3 (test code <0.01 See_Comment [Auto mated = 6604973434) message] The s ystem which generated this result transmitted reference range : 10*3/?L. The reference range was not used to interpret this result as normal/abnormal . GRAN MAT (NEUT) % 80.0 % (test code = 770-8) IMM GRAN % (test code 0.50 % = 4933607311) LYMPH % (test code = 11.8 % 736-9) MONO % (test code = 6.6 % 5905-5) EOS % (test code = 0.8 % 713-8) BASO % (test code = 0.3 % 706-2) GRAN MAT x10^3(ANC) 6.98 10*3/uL 1.99-6.95 H (test code = 9978510839) IMM GRAN x10^3 (test 0.04 10*3/uL 0-0.06 code = 7347076869) LYMPH x10^3 (test code 1.03 10*3/uL 1.09-3.23 L = 731-0) MONO x10^3 (test code 0.58 10*3/uL 0.36-1.02 = 742-7) EOS x10^3 (test code = 0.07 10*3/uL 0.06-0.53 711-2) BASO x10^3 (test code 0.03 10*3/uL 0.01-0.09 = 704-7) Lab Interpretation Abnormal (test code = 33289-1) [facility] Metabolic Panel (NA, K, CL, CO2, GLUCOSE, BUN, CREATININE, CA)2020-05-09 11:07:00 Test Item Value Reference Range Interpretation Comments NA (test code = 133 mmol/L 135-145 L 0851386836) K (test code = 4.4 mmol/L 3.5-5 7861697173) CL (test code = 100 mmol/L 98-108 1295498483) CO2 TOTAL (test code = 25 mmol/L 23-31 3841441356) AGAP (test code = 2-16 3153758268) BUN (test code = 14 mg/dL 7-23 1502379386) GLUCOSE (test code = 93 mg/dL 70-110 0518937029) CREATININE (test code = 0.66 mg/dL 0.6-1.25 7737686419) CALCIUM (test code = 8.3 mg/dL 8.6-10.6 L 0754285153) eGFR Calculation mL/min/1.73m2 (Non-) (test code = 4793407422) eGFR Calculation mL/min/1.73m2 () (test code = 7426439180) GILBERTO (test code = GILBERTO) Association of Glomerular Filtration Rate (GFR) and Staging of Kidney Disease* + --+ --+ ------+| GFR (mL/min/1.73 m2) ?| With Kidney Damage ?| ?Without Kidney Damage+ --------+ --------+ +| ?>90 ?| ?Stage one ?| ? Normal ?+ ---+ ---+ -------+| ?60-89 ?| ?Stage two ?| ? Decreased GFR ? + --+ --+ ------+| ?30-59 ?| ?Stage three ?| ? Stage three ? + --+ --+ ------+| ?15-29 ?| ?Stage four ? | ? Stage four ?+ ---+ ---+ -------+| ?<15 (or dialysis) ? ?| ?Stage five ? | ? Stage five ?+ ---+ ---+ -------+ *Each stage assumes the associated GFR level has been in effect for at least three months. ?Stages 1 to 5, with or without kidney disease, indicate chronic kidney disease. Notes: Determination of stages one and two (with eGFR >59mL/min/1.73 m2) requires estimation of kidney damage for at least three months as defined by structural or functional abnormalities of the kidney, manifested by either:Pathological abnormalities or Markers of kidney damage (including abnormalities in the composition of the blood or urine or abnormalities in imaging tests). Lab Interpretation Abnormal (test code = 21307-1) [facility] CenterMagnesium Aaonw5730-10-45 11:07:00 Test Item Value Reference Range Interpretation Comments MAGNESIUM (test code = 0775461170) 1.8 mg/dL 1.7-2.4 Lab Interpretation (test code = Normal 14871-5) [facility] CenterPhosphorus [id number] 11:07:00 Test Item Value Reference Range Interpretation Comments PHOSPHORUS (test code = 8961821412) 3.2 mg/dL 2.5-5 Lab Interpretation (test code = Normal 79093-1) [facility] CenterCB with Dqddlmuerjuz1180-12-69 10:42:00 Test Item Value Reference Range Interpretation Comments WBC (test code = See_Comment [Automated 6690-2) message] The sy stem which generated this result transmitted reference range : 4.20 - 10.70 10*3/?L. The reference range was not used to interpret this result as normal/abnormal . RBC (test code = See_Comment L [Automated 789-8) message] The sy stem which generated this result transmitted reference range : 4.26 - 5.52 10*6/?L. The reference range was not used to interpret this result as normal/abnormal . HGB (test code = 8.2 g/dL 12.2-16.4 L 718-7) HCT (test code = 25.3 % 38.4-49.3 L 4544-3) MCV (test code = 82.1 fL 81.7-95.6 787-2) MCH (test code = 26.6 pg 26.1-32.7 785-6) MCHC (test code = 32.4 g/dL 31.2-35 786-4) RDW-SD (test code = 45.9 fL 38.5-51.6 67177-6) RDW-CV (test code = 15.4 % 12.1-15.4 788-0) PLT (test code = See_Comment H [Automated 777-3) message] The sy stem which generated this result transmitted reference range : 150 - 328 10*3/ ?L. The reference r meredith was not used to interpret this result as normal/abnormal . MPV (test code = 8.9 fL 9.8-13 L 81780-9) NRBC/100 WBC (test See_Comment [Automat ed code = 6106885317) message] The system which generated this result transmitted reference range : 0.0 - 10.0 /100 WBCs. The refer ence range was not u sed to interpret th is result as normal/abnormal . NRBC x10^3 (test code <0.01 See_Comment [Auto mated = 9944075108) message] The s ystem which generated this result transmitted reference range : 10*3/?L. The reference range was not used to interpret this result as normal/abnormal . GRAN MAT (NEUT) % 77.7 % (test code = 770-8) IMM GRAN % (test code 0.50 % = 0317671622) LYMPH % (test code = 11.8 % 736-9) MONO % (test code = 8.4 % 5905-5) EOS % (test code = 1.4 % 713-8) BASO % (test code = 0.2 % 706-2) GRAN MAT x10^3(ANC) 6.48 10*3/uL 1.99-6.95 (test code = 6591699792) IMM GRAN x10^3 (test 0.04 10*3/uL 0-0.06 code = 9651808849) LYMPH x10^3 (test code 0.98 10*3/uL 1.09-3.23 L = 731-0) MONO x10^3 (test code 0.70 10*3/uL 0.36-1.02 = 742-7) EOS x10^3 (test code = 0.12 10*3/uL 0.06-0.53 711-2) BASO x10^3 (test code <0.03 0.01-0.09 = 704-7) Lab Interpretation Abnormal (test code = 27336-2) [facility] Metabolic Panel (NA, K, CL, CO2, GLUCOSE, BUN, CREATININE, CA)2020-05-08 12:18:00 Test Item Value Reference Range Interpretation Comments NA (test code = 136 mmol/L 135-145 6126348248) K (test code = 4.1 mmol/L 3.5-5 8152045091) CL (test code = 102 mmol/L 98-108 1401959720) CO2 TOTAL (test code = 26 mmol/L 23-31 0462663717) AGAP (test code = 2-16 3008556616) BUN (test code = 18 mg/dL 7-23 8536119388) GLUCOSE (test code = 99 mg/dL 70-110 1797318743) CREATININE (test code = 0.63 mg/dL 0.6-1.25 1954749006) CALCIUM (test code = 8.4 mg/dL 8.6-10.6 L 5455663892) eGFR Calculation mL/min/1.73m2 (Non-) (test code = 7440346059) eGFR Calculation mL/min/1.73m2 () (test code = 4395170067) GILBERTO (test code = GILBERTO) Association of Glomerular Filtration Rate (GFR) and Staging of Kidney Disease* + --+ --+ ------+| GFR (mL/min/1.73 m2) ?| With Kidney Damage ?| ?Without Kidney Damage+ --------+ --------+ +| ?>90 ?| ?Stage one ?| ? Normal ?+ ---+ ---+ -------+| ?60-89 ?| ?Stage two ?| ? Decreased GFR ? + --+ --+ ------+| ?30-59 ?| ?Stage three ?| ? Stage three ? + --+ --+ ------+| ?15-29 ?| ?Stage four ? | ? Stage four ?+ ---+ ---+ -------+| ?<15 (or dialysis) ? ?| ?Stage five ? | ? Stage five ?+ ---+ ---+ -------+ *Each stage assumes the associated GFR level has been in effect for at least three months. ?Stages 1 to 5, with or without kidney disease, indicate chronic kidney disease. Notes: Determination of stages one and two (with eGFR >59mL/min/1.73 m2) requires estimation of kidney damage for at least three months as defined by structural or functional abnormalities of the kidney, manifested by either:Pathological abnormalities or Markers of kidney damage (including abnormalities in the composition of the blood or urine or abnormalities in imaging tests). Lab Interpretation Abnormal (test code = 01606-6) [facility] CenterMagnesium Rxdqr0484-78-21 12:18:00 Test Item Value Reference Range Interpretation Comments MAGNESIUM (test code = 9519062826) 1.8 mg/dL 1.7-2.4 Lab Interpretation (test code = Normal 00071-5) [facility] CenterPhosphorus [id number] 12:18:00 Test Item Value Reference Range Interpretation Comments PHOSPHORUS (test code = 4087558070) 3.2 mg/dL 2.5-5 Lab Interpretation (test code = Normal 59183-2) [facility] CenterCBC with Igbuqvzxppby5544-94-68 11:50:00 Test Item Value Reference Range Interpretation Comments WBC (test code = See_Comment [Automated 0290-2) message] The sy stem which generated this result transmitted reference range : 4.20 - 10.70 10*3/?L. The reference range was not used to interpret this result as normal/abnormal . RBC (test code = See_Comment L [Automated 909-8) message] The sy stem which generated this result transmitted reference range : 4.26 - 5.52 10*6/?L. The reference range was not used to interpret this result as normal/abnormal . HGB (test code = 8.4 g/dL 12.2-16.4 L 718-7) HCT (test code = 26.3 % 38.4-49.3 L 4544-3) MCV (test code = 84.0 fL 81.7-95.6 787-2) MCH (test code = 26.8 pg 26.1-32.7 785-6) MCHC (test code = 31.9 g/dL 31.2-35 786-4) RDW-SD (test code = 46.9 fL 38.5-51.6 13223-8) RDW-CV (test code = 15.2 % 12.1-15.4 788-0) PLT (test code = See_Comment H [Automated 777-3) message] The sy stem which generated this result transmitted reference range : 150 - 328 10*3/ ?L. The reference r meredith was not used to interpret this result as normal/abnormal . MPV (test code = 9.0 fL 9.8-13 L 97097-7) NRBC/100 WBC (test See_Comment [Automat ed code = 9812255780) message] The system which generated this result transmitted reference range : 0.0 - 10.0 /100 WBCs. The refer ence range was not u sed to interpret th is result as normal/abnormal . NRBC x10^3 (test code <0.01 See_Comment [Auto mated = 1510599637) message] The s ystem which generated this result transmitted reference range : 10*3/?L. The reference range was not used to interpret this result as normal/abnormal . GRAN MAT (NEUT) % 76.3 % (test code = 770-8) IMM GRAN % (test code 0.70 % = 9238217394) LYMPH % (test code = 13.3 % 736-9) MONO % (test code = 8.4 % 5905-5) EOS % (test code = 1.1 % 713-8) BASO % (test code = 0.2 % 706-2) GRAN MAT x10^3(ANC) 6.93 10*3/uL 1.99-6.95 (test code = 1549716572) IMM GRAN x10^3 (test 0.06 10*3/uL 0-0.06 code = 4190559012) LYMPH x10^3 (test code 1.21 10*3/uL 1.09-3.23 = 731-0) MONO x10^3 (test code 0.76 10*3/uL 0.36-1.02 = 742-7) EOS x10^3 (test code = 0.10 10*3/uL 0.06-0.53 711-2) BASO x10^3 (test code <0.03 0.01-0.09 = 704-7) Lab Interpretation Abnormal (test code = 10219-2) [facility] CenterIR D[facility]INAGE BY CATHETER PERITONEAL OR [id number] 13:09:04 Technically successful drainage catheter placement in the right upperquadrant, left upper quadrant,and right lower quadrant collections. Preliminary Report Dictated by Resident: Sukhjinder Gregory I, Rach Prince MD., have reviewed this study and agree with theabove report. I, as teaching physician,was present during the entire procedure and/orduring the botello components.EXAMINATION: CT-GUIDED INTRA-ABDOMINAL ABSCESS DRAIN PLACEMENT Procedures: 1. Technically successful right upper quadrant CT guided drain placement.For abscess no immediate complications. 2. Technically successful left upper quadrant CT guided drain placement.For abscess no immediate complications. 3. Technically successful rightlower quadrant CT guided drain placement.For abscess no immediate complications. HISTORY/INDICATION:?need for drain SEDATION: Moderate sedation was administered under the attendingphysician's direction and continuous monitoring by a trained nursespecialist who was independent from those actually performing theprocedure. Please see [facility] for total sedation time. TECHNIQUE: The risks, benefits and alternatives were discussed and informedconsent was obtained. Prior to beginning the procedure, UniversalProtocolwas performed to confirm the patient's identity and the planned procedure.Maximum sterile barriers including cap, mask, hand hygiene, sterile gloves,sterile gown, large sterile drape and cutaneous antisepsis were used. The right upper quadrant collection was identified under real-timeultrasound guidance and a 17-gauge coaxial needle was advanced into thecollection. An Amplatz wire was advanced into the collection and serialdilatation of the tract was performed. A 14 [place] locking pigtail michael inagecatheter was placed in the collection and samples were sent for laboratoryanalysis. The left upper quadrant collection was identified under ultrasound and CTguidance. A 17-gauge coaxial needle wasadvanced into the collection. AnAmplatz wire was advanced into the collection over the needle and serialdilatation of the tract was performed. A 12 [place] locking pigtail drainagecatheter was placed within the collection and samples were sent forlaboratory analysis. The right lower quadrant collectionwas identified under ultrasound and CTguidance. A 17-gauge coaxial needle was advanced into the colle ction.Serial dilatation was performed over the Amplatz wire. A 14 [place] lockingpigtail drainage catheter was placed within the collection. Proper positioning was confirmed with postprocedural CT imaging of theabdomen and pelvis. The catheters were sutured to the skin. ESTIMATED BLOOD LOSS: <3cc. CONDITION: Stable. FINDINGS: Initial CT images demonstrate multiple abscesses in the left upper, rightupper, and right lower quadrants. [facility], Radiant Results Inft User - 05/07/2020 8:10 AM CDTEXAMINATION: CT-GUIDED INTRA-ABDOMINAL ABSCESS DRAIN PLACEMENTProcedures:1. Technically successful right upper quadrant CT guided drain placement.For abscess no immediate complications.2. Technically successful left upper quadrant CT guided drain placement.For abscess no immediate complications.3. Technically successful right lower quadrant CT guided drain placement.For abscess no immediate complications. HISTORY/INDICATION: need for drain SEDATION: Moderate sedation was administered under the attendingphysician's direction and continuous monitoring by a trained nursespecialist who was independent from those actually performing theprocedure. Please see [facility] for total sedation time. TECHNIQUE: The risks, benefits and alternatives were discussed and informedconsent was obtained. Prior to beginning the procedure, Dexter Protocolwas performed to confirm the patient's identity and the planned procedure.Maximum sterile barriers including cap, mask, hand hygiene, sterile gloves,sterile gown, large sterile drape and cutaneous antisepsis were used.The right upper quadrant collection was identified under real-timeultrasound guidance and a 17-gauge coaxial needle was advanced into thecollection. An Amplatz wire was advanced into the collection and serialdilatation of the tract was performed. A 14 [place] lockingpigtail drainagecatheter was placed in the collection and samples were sent for laboratoryanalysis.The left upper quadrant collection was identified under ultrasound and CTguidance. A 17-gauge coaxial needle was advanced into the collection. AnAmplatz wire was advanced into the collection over the needle and serialdilatation of the tract was performed. A 12 [place] locking pigtail drainagecatheter wasplaced within the collection and samples were sent forlaboratory analysis.The right lower quadrant collection was identified under ultrasound and CTguidance. A 17-gauge coaxial needle was advanced intothe collection.Serial dilatation was performed over the Amplatz wire. A 14 [place] lockingpigtail drainage catheter was placed within the collection.Proper positioning was confirmed with postprocedural CT imaging of theabdomen and pelvis. The catheters were sutured to the skin.ESTIMATED BLOOD LOSS: < 3cc.CONDITION: Stable.FINDINGS:Initial CT images demonstrate multiple abscesses in the left upper, rightupper, and right lower quadrants.IMPRESSIONTechnically successful drainage catheter placement in the right upperquadrant, left upper quadrant, and right lower quadrant collections.Preliminary ReportDictated by Resident: Nixon Taylor MD., have reviewed this study and agree withtheabove report.I, as teaching physician, was present during the entire procedure and/orduring the botello components.[facility] Metabolic Panel (NA, K, CL, CO2, GLUCOSE, BUN, CREATININE, CA) 2020-05-07 11:49:00 Test Item Value Reference Range Interpretation Comments NA (test code = 132 mmol/L 135-145 L 8366683253) K (test code = 4.0 mmol/L 3.5-5 1918922284) CL (test code = 101 mmol/L 98-108 6578832624) CO2 TOTAL (test code = 23 mmol/L 23-31 8464243005) AGAP (test code = 2-16 2409655277) BUN (test code = 21 mg/dL 7-23 2313352254) GLUCOSE (test code = 98 mg/dL 70-110 2881845444) CREATININE (test code = 0.65 mg/dL 0.6-1.25 7603076367) CALCIUM (test code = 8.4 mg/dL 8.6-10.6 L 6840452966) eGFR Calculation mL/min/1.73m2 (Non-) (test code = 5058894291) eGFR Calculation mL/min/1.73m2 () (test code = 2062167208) GILBERTO (test code = GILBERTO) Association of Glomerular Filtration Rate (GFR) and Staging of Kidney Disease* + --+ --+ ------+| GFR (mL/min/1.73 m2) ?| With Kidney Damage ?| ?Without Kidney Damage+ --------+ --------+ +| ?>90 ?| ?Stage one ?| ? Normal ?+ ---+ ---+ -------+| ?60-89 ?| ?Stage two ?| ? Decreased GFR ? + --+ --+ ------+| ?30-59 ?| ?Stage three ?| ? Stage three ? + --+ --+ ------+| ?15-29 ?| ?Stage four ? | ? Stage four ?+ ---+ ---+ -------+| ?<15 (or dialysis) ? ?| ?Stage five ? | ? Stage five ?+ ---+ ---+ -------+ *Each stage assumes the associated GFR level has been in effect for at least three months. ?Stages 1 to 5, with or without kidney disease, indicate chronic kidney disease. Notes: Determination of stages one and two (with eGFR >59mL/min/1.73 m2) requires estimation of kidney damage for at least three months as defined by structural or functional abnormalities of the kidney, manifested by either:Pathological abnormalities or Markers of kidney damage (including abnormalities in the composition of the blood or urine or abnormalities in imaging tests). Lab Interpretation Abnormal (test code = 03261-4) [facility] [id number] 11:49:00 Test Item Value Reference Range Interpretation Comments MAGNESIUM (test code = 0251668505) 1.5 mg/dL 1.7-2.4 L Lab Interpretation (test code = Abnormal 70290-3) [facility] CenterPhosphorus [id number] 11:49:00 Test Item Value Reference Range Interpretation Comments PHOSPHORUS (test code = 2171572340) 2.7 mg/dL 2.5-5 Lab Interpretation (test code = Normal 32578-6) [facility] CenterCB with [id number] 11:31:00 Test Item Value Reference Range Interpretation Comments WBC (test code = See_Comment [Automated 6690-2) message] The sy stem which generated this result transmitted reference range : 4.20 - 10.70 10*3/?L. The reference range was not used to interpret this result as normal/abnormal . RBC (test code = See_Comment L [Automated 789-8) message] The sy stem which generated this result transmitted reference range : 4.26 - 5.52 10*6/?L. The reference range was not used to interpret this result as normal/abnormal . HGB (test code = 7.5 g/dL 12.2-16.4 L 718-7) HCT (test code = 23.4 % 38.4-49.3 L 4544-3) MCV (test code = 83.9 fL 81.7-95.6 787-2) MCH (test code = 26.9 pg 26.1-32.7 785-6) MCHC (test code = 32.1 g/dL 31.2-35 786-4) RDW-SD (test code = 47.2 fL 38.5-51.6 42933-2) RDW-CV (test code = 15.3 % 12.1-15.4 788-0) PLT (test code = See_Comment H [Automated 777-3) message] The sy stem which generated this result transmitted reference range : 150 - 328 10*3/ ?L. The reference r meredith was not used to interpret this result as normal/abnormal . MPV (test code = 9.4 fL 9.8-13 L 77708-4) NRBC/100 WBC (test See_Comment [Automat ed code = 4412293967) message] The system which generated this result transmitted reference range : 0.0 - 10.0 /100 WBCs. The refer ence range was not u sed to interpret th is result as normal/abnormal . NRBC x10^3 (test code <0.01 See_Comment [Auto mated = 0432056403) message] The s ystem which generated this result transmitted reference range : 10*3/?L. The reference range was not used to interpret this result as normal/abnormal . GRAN MAT (NEUT) % 81.1 % (test code = 770-8) IMM GRAN % (test code 0.80 % = 1199338873) LYMPH % (test code = 9.5 % 736-9) MONO % (test code = 7.8 % 5905-5) EOS % (test code = 0.6 % 713-8) BASO % (test code = 0.2 % 706-2) GRAN MAT x10^3(ANC) 8.26 10*3/uL 1.99-6.95 H (test code = 3215628499) IMM GRAN x10^3 (test 0.08 10*3/uL 0-0.06 H code = 2004147490) LYMPH x10^3 (test code 0.97 10*3/uL 1.09-3.23 L = 731-0) MONO x10^3 (test code 0.79 10*3/uL 0.36-1.02 = 742-7) EOS x10^3 (test code = 0.06 10*3/uL 0.06-0.53 711-2) BASO x10^3 (test code <0.03 0.01-0.09 = 704-7) Lab Interpretation Abnormal (test code = 69543-3) [facility] Metabolic Panel (NA, K, CL, CO2, GLUCOSE, BUN, CREATININE, CA)2020-05-06 15:02:00 Test Item Value Reference Range Interpretation Comments NA (test code = 134 mmol/L 135-145 L 2559320796) K (test code = 4.3 mmol/L 3.5-5 7228913947) CL (test code = 105 mmol/L 98-108 3388786276) CO2 TOTAL (test code = 23 mmol/L 23-31 3297884552) AGAP (test code = 2-16 8719449919) BUN (test code = 18 mg/dL 7-23 6595817401) GLUCOSE (test code = 96 mg/dL 70-110 6979158191) CREATININE (test code = 0.67 mg/dL 0.6-1.25 4728433033) CALCIUM (test code = 8.5 mg/dL 8.6-10.6 L 7962201627) eGFR Calculation mL/min/1.73m2 (Non-) (test code = 5704741364) eGFR Calculation mL/min/1.73m2 () (test code = 8443026808) GILBERTO (test code = GILBERTO) Association of Glomerular Filtration Rate (GFR) and Staging of Kidney Disease* + --+ --+ ------+| GFR (mL/min/1.73 m2) ?| With Kidney Damage ?| ?Without Kidney Damage+ --------+ --------+ +| ?>90 ?| ?Stage one ?| ? Normal ?+ ---+ ---+ -------+| ?60-89 ?| ?Stage two ?| ? Decreased GFR ? + --+ --+ ------+| ?30-59 ?| ?Stage three ?| ? Stage three ? + --+ --+ ------+| ?15-29 ?| ?Stage four ? | ? Stage four ?+ ---+ ---+ -------+| ?<15 (or dialysis) ? ?| ?Stage five ? | ? Stage five ?+ ---+ ---+ -------+ *Each stage assumes the associated GFR level has been in effect for at least three months. ?Stages 1 to 5, with or without kidney disease, indicate chronic kidney disease. Notes: Determination of stages one and two (with eGFR >59mL/min/1.73 m2) requires estimation of kidney damage for at least three months as defined by structural or functional abnormalities of the kidney, manifested by either:Pathological abnormalities or Markers of kidney damage (including abnormalities in the composition of the blood or urine or abnormalities in imaging tests). Lab Interpretation Abnormal (test code = 55270-8) [facility] CenterMagnesium [id number] 15:02:00 Test Item Value Reference Range Interpretation Comments MAGNESIUM (test code = 9400116588) 1.8 mg/dL 1.7-2.4 Lab Interpretation (test code = Normal 88874-5) [facility] CenterPhosphorus [id number] 15:02:00 Test Item Value Reference Range Interpretation Comments PHOSPHORUS (test code = 1596893449) 3.2 mg/dL 2.5-5 Lab Interpretation (test code = Normal 58253-1) [facility] CenterCB with Nrtecepcekni9015-64-06 10:41:00 Test Item Value Reference Range Interpretation Comments WBC (test code = See_Comment [Automated 6790-2) message] The sy stem which generated this result transmitted reference range : 4.20 - 10.70 10*3/?L. The reference range was not used to interpret this result as normal/abnormal . RBC (test code = See_Comment L [Automated 658-8) message] The sy stem which generated this result transmitted reference range : 4.26 - 5.52 10*6/?L. The reference range was not used to interpret this result as normal/abnormal . HGB (test code = 7.5 g/dL 12.2-16.4 L 718-7) HCT (test code = 23.6 % 38.4-49.3 L 4544-3) MCV (test code = 84.6 fL 81.7-95.6 787-2) MCH (test code = 26.9 pg 26.1-32.7 785-6) MCHC (test code = 31.8 g/dL 31.2-35 786-4) RDW-SD (test code = 47.0 fL 38.5-51.6 73224-1) RDW-CV (test code = 15.2 % 12.1-15.4 788-0) PLT (test code = See_Comment H [Automated 777-3) message] The sy stem which generated this result transmitted reference range : 150 - 328 10*3/ ?L. The reference r meredith was not used to interpret this result as normal/abnormal . MPV (test code = 9.1 fL 9.8-13 L 62509-6) NRBC/100 WBC (test See_Comment [Automat ed code = 0963189717) message] The system which generated this result transmitted reference range : 0.0 - 10.0 /100 WBCs. The refer ence range was not u sed to interpret th is result as normal/abnormal . NRBC x10^3 (test code <0.01 See_Comment [Auto mated = 9427258628) message] The s ystem which generated this result transmitted reference range : 10*3/?L. The reference range was not used to interpret this result as normal/abnormal . GRAN MAT (NEUT) % 77.3 % (test code = 770-8) IMM GRAN % (test code 0.60 % = 3188906954) LYMPH % (test code = 11.6 % 736-9) MONO % (test code = 9.5 % 5905-5) EOS % (test code = 0.8 % 713-8) BASO % (test code = 0.2 % 706-2) GRAN MAT x10^3(ANC) 6.69 10*3/uL 1.99-6.95 (test code = 6447010726) IMM GRAN x10^3 (test 0.05 10*3/uL 0-0.06 code = 3067845480) LYMPH x10^3 (test code 1.00 10*3/uL 1.09-3.23 L = 731-0) MONO x10^3 (test code 0.82 10*3/uL 0.36-1.02 = 742-7) EOS x10^3 (test code = 0.07 10*3/uL 0.06-0.53 711-2) BASO x10^3 (test code <0.03 0.01-0.09 = 704-7) Lab Interpretation Abnormal (test code = 82435-2) [facility] Units 2020-05-05 15:59:33 Test Item Value Reference Range Interpretation Comments Cross Match Result Compatible (test code = 4409) ISBT Blood Type Code (test code = 010636) Unit Blood Type (test O Pos code = 4410) Unit Number (test [id number] code = 4411) Blood Expiration Date & Time (test code = 065763) Status Information Issued (test code = 4412) Product Red Blood Cells Identification (test code = 4413) Product Code (test M1464B79 Performed at [facility] code = 4414) Laboratory Services - [facility] Blood [address] [address]Pexi Free: [phone] A No. [id number] [facility] CenterType and Screen - ONCE Crpspxp9821-60-62 11:34:29 Test Item Value Reference Range Interpretation Comments ABO & RH (test code O POSITIVE Performe d at [facility] = 20) Laboratory Serv [facility] Blood [facility] [facility] [address]Igyj Free: [phone] A No. [id number] IAT (test code = Negative Performed a t [facility] 1185) Laboratory Serv [facility] Blood [facility] [facility] [address]Eavt Free: [phone] A No. [id number] [facility] CenterPREALBUMIN2020-09-12 10:19:00 Test Item Value Reference Range Interpretation Comments PALB (test code = 65334-4) 8.0 mg/dL 18-45 L Lab Interpretation (test code = Abnormal 30649-0) [facility] CenterB[facility] Metabolic Panel (NA, K, CL, CO2, GLUCOSE, BUN, CREATININE, CA)2020-05-05 10:12:00 Test Item Value Reference Range Interpretation Comments NA (test code = 135 mmol/L 135-145 3670650843) K (test code = 4.1 mmol/L 3.5-5 1787983913) CL (test code = 106 mmol/L 98-108 7924509119) CO2 TOTAL (test code = 22 mmol/L 23-31 L 0029090170) AGAP (test code = 2-16 0409598776) BUN (test code = 25 mg/dL 7-23 H 0872570799) GLUCOSE (test code = 91 mg/dL 70-110 5835734490) CREATININE (test code = 0.68 mg/dL 0.6-1.25 7327093419) CALCIUM (test code = 7.4 mg/dL 8.6-10.6 L 2260606141) eGFR Calculation mL/min/1.73m2 (Non-) (test code = 4116547005) eGFR Calculation mL/min/1.73m2 () (test code = 2141701997) GILBERTO (test code = GILBERTO) Association of Glomerular Filtration Rate (GFR) and Staging of Kidney Disease* + --+ --+ ------+| GFR (mL/min/1.73 m2) ?| With Kidney Damage ?| ?Without Kidney Damage+ --------+ --------+ +| ?>90 ?| ?Stage one ?| ? Normal ?+ ---+ ---+ -------+| ?60-89 ?| ?Stage two ?| ? Decreased GFR ? + --+ --+ ------+| ?30-59 ?| ?Stage three ?| ? Stage three ? + --+ --+ ------+| ?15-29 ?| ?Stage four ? | ? Stage four ?+ ---+ ---+ -------+| ?<15 (or dialysis) ? ?| ?Stage five ? | ? Stage five ?+ ---+ ---+ -------+ *Each stage assumes the associated GFR level has been in effect for at least three months. ?Stages 1 to 5, with or without kidney disease, indicate chronic kidney disease. Notes: Determination of stages one and two (with eGFR >59mL/min/1.73 m2) requires estimation of kidney damage for at least three months as defined by structural or functional abnormalities of the kidney, manifested by either:Pathological abnormalities or Markers of kidney damage (including abnormalities in the composition of the blood or urine or abnormalities in imaging tests). Lab Interpretation Abnormal (test code = 03454-5) [facility] CenterMagnesium [id number] 10:12:00 Test Item Value Reference Range Interpretation Comments MAGNESIUM (test code = 5930262513) 1.8 mg/dL 1.7-2.4 Lab Interpretation (test code = Normal 39000-0) [facility] CenterPhosphorus [id number] 10:12:00 Test Item Value Reference Range Interpretation Comments PHOSPHORUS (test code = 9037555973) 3.1 mg/dL 2.5-5 Lab Interpretation (test code = Normal 81112-6) [facility] CenterCBC with [id number] 09:18:00 Test Item Value Reference Range Interpretation Comments WBC (test code = See_Comment [Automated 2590-2) message] The sy stem which generated this result transmitted reference range : 4.20 - 10.70 10*3/?L. The reference range was not used to interpret this result as normal/abnormal . RBC (test code = See_Comment L [Automated 789-8) message] The sy stem which generated this result transmitted reference range : 4.26 - 5.52 10*6/?L. The reference range was not used to interpret this result as normal/abnormal . HGB (test code = 6.7 g/dL 12.2-16.4 L 718-7) HCT (test code = 21.3 % 38.4-49.3 L 4544-3) MCV (test code = 84.5 fL 81.7-95.6 787-2) MCH (test code = 26.6 pg 26.1-32.7 785-6) MCHC (test code = 31.5 g/dL 31.2-35 786-4) RDW-SD (test code = 48.4 fL 38.5-51.6 96627-2) RDW-CV (test code = 15.7 % 12.1-15.4 H 788-0) PLT (test code = See_Comment H [Automated 777-3) message] The sy stem which generated this result transmitted reference range : 150 - 328 10*3/ ?L. The reference r meredith was not used to interpret this result as normal/abnormal . MPV (test code = 9.1 fL 9.8-13 L 87053-2) NRBC/100 WBC (test See_Comment [Automat ed code = 9053625672) message] The system which generated this result transmitted reference range : 0.0 - 10.0 /100 WBCs. The refer ence range was not u sed to interpret th is result as normal/abnormal . NRBC x10^3 (test code <0.01 See_Comment [Auto mated = 7936681259) message] The s ystem which generated this result transmitted reference range : 10*3/?L. The reference range was not used to interpret this result as normal/abnormal . GRAN MAT (NEUT) % 79.0 % (test code = 770-8) IMM GRAN % (test code 0.70 % = 1803390754) LYMPH % (test code = 10.6 % 736-9) MONO % (test code = 8.9 % 5905-5) EOS % (test code = 0.5 % 713-8) BASO % (test code = 0.3 % 706-2) GRAN MAT x10^3(ANC) 7.81 10*3/uL 1.99-6.95 H (test code = 7264850042) IMM GRAN x10^3 (test 0.07 10*3/uL 0-0.06 H code = 4549633873) LYMPH x10^3 (test code 1.05 10*3/uL 1.09-3.23 L = 731-0) MONO x10^3 (test code 0.88 10*3/uL 0.36-1.02 = 742-7) EOS x10^3 (test code = 0.05 10*3/uL 0.06-0.53 L 711-2) BASO x10^3 (test code 0.03 10*3/uL 0.01-0.09 = 704-7) Lab Interpretation Abnormal (test code = 71844-6) [facility] CenterURINALYSIS2020-09-12 06:03:00 Test Item Value Reference Range Interpretation Comments APPEARANCE (test code = Hazy Clear A 1051377731) COLOR (test code = Yellow Yellow 1987555881) PH (test code = 4.8-8.0 7714101995) SP GRAVITY (test code = 1.003-1.030 H 4012815335) GLU U QUAL (test code = Normal Normal 6128253841) BLOOD (test code = Negative Negative 2044286245) KETONES (test code = Negative Negative 4093189520) PROTEIN (test code = Negative Negative 2887-8) UROBILIN (test code = Normal Normal 5808753438) BILIRUBIN (test code = Negative Negative 4611827874) NITRITE (test code = Negative Negative 4198871213) LEUK ROGER (test code = Negative Negative 3443540560) RBC/HPF (test code = See_Comment H [Autom ated message] 9398570226) The system [employer] generated this result transmitted ref erence range: 0 - 3 HP F. The reference range was not used to int erpret this result as normal/abnormal . WBC/HPF (test code = See_Comment [Autom ated message] 9073528209) The system [employer] generated this result transmitted ref erence range: 0 - 5 HP F. The reference range was not used to int erpret this result as normal/abnormal . BACTERIA (test code = Few Negative A 4138574796) MUCOUS (test code = Slight Negative LPF A 9474038706) CA OXALATE (test code = See_Comment H [Au tomated message] 2527808570) The system [employer] generated this result transmitted ref erence range: <=1 HPF. The reference range was not used to int erpret this result as normal/abnormal . Lab Interpretation (test Abnormal code = 48379-5) [facility] CenterCT ABDOMEN PELVIS W [id number] 04:56:59 1. ?Interval removal of left subdiaphragmatic, right lower quadrant andright lower quadrant left abdominal wall approach drainage catheters.2. ?Interval decrease in size of anterior peritoneal large multiloculatedabscess , right subdiaphragmatic perihepatic fluid collection, leftperisplenic fluid pat ection, and right paracolic gutter abscess.3. ?Interval increase in size of left subdiaphragmatic abscess, nowmeasuring 10.9 x 9.0 x 5.8 cm and right lower quadrant fluid and gascollection, now measuring 10.2 x 3.2 x 4.1 cm.4. 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 Preliminary Report Dictated by Resident: Ankush Lott ?MD. Valdo, have reviewed this study and agree with the abovereport.EXAM: CT ABDOMEN/PELVIS WITH CONTRAST HISTORY: ? 50 years-old Male presenting with Abd pain, acute, generalized COMPARISON: CT abdomen pelviswith contrast 04/23/2020 DOSE: 473 mGycm TECHNIQUE AND FINDINGS: Contiguous axial imaging from the level of the lungbases through the proximal thighs was performed after the administration of120 cc of intravenous Omnipaque contrast. Coronal and sagittalreconstructions were obtained. ?Auto mA and/or iterative reconstructionwere used to reduce radiation dose. FINDINGS: LOWER THORAX: Bilateral dependent atelectatic changes. Interval improvementof left basilar hydropneumothorax with small amount of residual fluid andgas. LIVER: Enlarged liver measuring 23.2 cm in craniocaudal dimension. No focalhepatic lesions. Normal contour. Interval decrease in size of rightsubdiaphragmatic hyperattenuating fluid collection abutting the hepaticdome, now measuring 2.1 x 3.6 x 0.8 cm compared to 3.9 x 5.0 x 2.[address] GALLBLADDER AND BILIARY TREE: The gallbladder is contracted with a smallamount of pericholecystic fluid. No biliary ductal dilation. No radiopaquecholelithiasis. No gallbladder wall thickening. SPLEEN: The spleen is borderline enlarged measuring 12.6 cm in transversediameter. PANCREAS: No ductal dilation or masses. ADRENAL GLANDS: No adrenal nodules. KIDNEYS: No hydronephrosis, stones, or masses. PERITONEUM AND RETROPERITONEUM: Interval decrease in size of anteriorperitoneal large multiloculated peripherally enhancing fluid and gascollection now measuring 18.0 x 19.1 x 3.8 cm (CC X TR X AP) compared to 25x 23.5 x 5.[address]. This collection extends into the leftsubdiaphragmatic space with interval removal of the left perisplenicdrainage tube and increase in size of the left subdia phragmatic collection,now measuring 10.9 x 9.0 x 5.8 cm (AP X TR X CC) compared to 6.4 x 5[address] Interval decrease in size of left sided perisplenic fluid collection notedat the inferoposterior aspect of the spleen. Interval removal of right-sided pigtail drainage catheter with intervaldecrease in the right paracolic gutter fluid and gas collection. Interval removal of right lower quadrantleft abdominal wall approachdrainage tube with interval increase in size of fluid and gas collectionwithin the right lower quadrant measuring up to 10.2 x 3.2 x 4.1 cm (TR XAP X CC). Redemonstrated diffuse mesenteric haziness. LYMPH NODES: Prominent mesenteric and todd hepatis lymphadenopathy,unchanged. GI TRACT: Redemonstrated 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 Mild thickeningof the bowel wall with increased enhancement, likely reactive. PELVIS/BLADDER: Urinary bladder is unremarkable for the degree ofdistention. The prostate isnot enlarged. VESSELS: Patent and unremarkable. BONES AND SOFT TISSUES: No suspicious lytic or sclero tic bony lesions.Unchanged L4 1.7 cm radiolucency. Interval decrease in size of midline lower abdominal wall soft tissuedefect. [facility], Radiant Results Inft User - 05/04/2020 11:58 PM CDTEXAM: CT ABDOMEN/PELVIS WITH CONTRASTHISTORY: 50 years- old Male presenting with Abd pain, acute, generalized COMPARISON: CT abdomen pelvis with contrast 04/23/2020DOSE: 473 mGycmTECHNIQUE AND FINDINGS: Contiguous axial imaging from the level of the lungbases through the proximal thighs was performed after the administration of120 cc of intravenous Omnipaque contrast. Coronal and sagittalreconstructions were obtained. Auto mA and/or iterative reconstructionwere used to reduce radiation dose.FINDINGS:LOWER THORAX: Bilat eral dependent atelectatic changes. Interval improvementof left basilar hydropneumothorax with smallamount of residual fluid andgas.LIVER: Enlarged liver measuring 23.2 cm in craniocaudal dimension. No focalhepatic lesions. Normal contour. Interval decrease in size of rightsubdiaphragmatic hyperattenu ating fluid collection abutting the hepaticdome, now measuring 2.1 x 3.6 x 0.8 cm compared to 3.9 x 5.0 x 2.[address]GALLBLADDER AND BILIARY TREE: The gallbladder is contracted with a smallamount of pericholecystic fluid. No biliary ductal dilation. No radiopaquecholelithiasis. No gallbladder wall thickening.SPLEEN: The spleen is borderline enlarged measuring 12.6 cm in transversediameter.PANCREAS: No ductal dilation or masses.ADRENAL GLANDS: No adrenal nodules.KIDNEYS: No hydronephrosis, stones, or masses.PERITONEUM AND RETROPERITONEUM: Interval decrease in size of anteriorperitoneal large m ultiloculated peripherally enhancing fluid and gascollection now measuring 18.0 x 19.1 x 3.8 cm (CC X TR X AP) compared to 25x 23.5 x 5.[address]. This collection extends into the leftsubdiaphragmatic space with interval removal of the left perisplenicdrainage tube and increase in size of the left subdiaphragmatic collection,now measuring 10.9 x 9.0 x 5.8 cm (AP X TR X CC) compared to 6.4 x 5.[address]Interval decrease in size of left sided perisplenic fluid collection notedat the inferoposterior aspect of the spleen.Interval removal of right-sided pigtail drainage catheter with interv aldecrease in the right paracolic gutter fluid and gas collection.Interval removal of right lower quadrant left abdominal wall approachdrainage tube with interval increase in size of fluid and gas collectionwithin the right lower quadrant measuring up to 10.2 x 3.2 x 4.1 cm (TR XAP X CC).Redemonstrated diffuse mesenteric haziness.LYMPH NODES: Prominent mesenteric and todd hepatis lymphadenopathy,unchanged.GI TRACT: Redemonstrated 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 Mild thickeningof the bowel wall with increased enhancement, likely reactive.PELVIS/BLADDER: Urinary bladder is unremarkable for the degree ofdistention. The prostate is not enlarged.VESSELS: Patent and unremarkable.BONES AND SOFT TISSUES: No suspicious lytic or sclerotic bony lesions.Unchanged L4 1.7 cm radiolucency.Interval decrease in size of midline lower abdominal wall soft tissuedefect.IMPRESSION1. Interval removal of left subdiaphragmatic, right lower quadrant andright lower quadrant left abdominal wall approach drainage catheters.2. Interval decrease in size of anterior peritoneal large multiloculatedabscess , right subdiaphragmatic perihepatic fluid collection, leftperisplenic fluid collection, and right paracolic gutter abscess.3. Interval increase in size of left subdiaphragmatic abscess, nowmeasuring 10.9 x 9.0 x 5.8 cm and right lower quadrant fluidand gascollection, now measuring 10.2 x 3.2 x 4.1 cm.4. 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 ([facility] NOW [facility]APID TESTING)2020-05-05 03:40:00 Test Item Value Reference Range Interpretation Comments SARS-CoV-2 Rapid ID NOW Not Detected Not Detected (test code = 32630-7) GILBERTO (test code = GILBERTO) ID NOW COVID-19 Assay is an isothermal nucleic acid amplification test intended for the qualitative detection of nucleic acid from SARS-CoV-2 viral RNA in nasopharyngeal (HUMAN GEOGRAPHY INSTRUCTOR) specimens. It is used under Emergency Use Authorization (EUA) by FDA. The limit of detection (LOD) of the assay is 125 Genome Equivalents/mL. A positive result is indicative of the presence of SARS-CoV-2 RNA. ?Clinical correlation with patient history and other diagnostic information is necessary to determine patient infection status. A negative (Not Detected) result does not preclude SARS-CoV-2 infection. In patients with clinical symptoms and other tests that are consistent with SARS-CoV-2 infection, negative results should be treated as presumptive negative and a new specimen should be tested with alternative PCR molecular test. Invalid: Please collect a new specimen for repeat patient testing if clinically indicated. Lab Interpretation Normal (test code = 93739-9) [facility]. METABOLIC PANEL ([id number])2020-05-05 03:02:00 Test Item Value Reference Range Interpretation Comments NA (test code = 134 mmol/L 135-145 L 9814964341) K (test code = 4.7 mmol/L 3.5-5 5418940609) CL (test code = 99 mmol/L 98-108 4474484381) CO2 TOTAL (test code = 24 mmol/L 23-31 3806996561) AGAP (test code = 2-16 6027033830) BUN (test code = 37 mg/dL 7-23 H 7577873832) GLUCOSE (test code = 105 mg/dL 70-110 7472398058) CREATININE (test code = 0.94 mg/dL 0.6-1.25 4961420065) TOTAL BILI (test code = 0.5 mg/dL 0.1-1.6 0285669897) CALCIUM (test code = 8.8 mg/dL 8.6-10.6 6277361037) T PROTEIN (test code = 6.2 g/dL 6.3-8.2 L 1954230698) ALBUMIN (test code = 3.0 g/dL 3.5-5 L 3770596592) ALK PHOS (test code = 150 U/L 34-122 H 1653483257) ALTv (test code = 28 U/L 5-50 1742-6) AST(SGOT) (test code = 23 U/L 13-40 3092889767) eGFR Calculation mL/min/1.73m2 (Non-) (test code = 2579264078) eGFR Calculation mL/min/1.73m2 () (test code = 4400978496) GILBERTO (test code = GILBERTO) Association of Glomerular Filtration Rate (GFR) and Staging of Kidney Disease* + --+ --+ ------+| GFR (mL/min/1.73 m2) ?| With Kidney Damage ?| ?Without Kidney Damage+ --------+ --------+ +| ?>90 ?| ?Stage one ?| ? Normal ?+ ---+ ---+ -------+| ?60-89 ?| ?Stage two ?| ? Decreased GFR ? + --+ --+ ------+| ?30-59 ?| ?Stage three ?| ? Stage three ? + --+ --+ ------+| ?15-29 ?| ?Stage four ? | ? Stage four ?+ ---+ ---+ -------+| ?<15 (or dialysis) ? ?| ?Stage five ? | ? Stage five ?+ ---+ ---+ -------+ *Each stage assumes the associated GFR level has been in effect for at least three months. ?Stages 1 to 5, with or without kidney disease, indicate chronic kidney disease. Notes: Determination of stages one and two (with eGFR >59mL/min/1.73 m2) requires estimation of kidney damage for at least three months as defined by structural or functional abnormalities of the kidney, manifested by either:Pathological abnormalities or Markers of kidney damage (including abnormalities in the composition of the blood or urine or abnormalities in imaging tests). Lab Interpretation Abnormal (test code = 93277-3) [facility]2020[facility] 03:02:00 Test Item Value Reference Range Interpretation Comments LIPASE (test code = 6871079283) 323 U/L 0-220 H Lab Interpretation (test code = Abnormal 95968-8) [facility] WITH [id number] 02:43:00 Test Item Value Reference Range Interpretation Comments WBC (test code = See_Comment H [Automated 6690-2) message] The system which generated this result transmit dain reference range : 4.20 - 10.70 10*3/?L. The reference range was not used to interpret this result as normal/abnormal . RBC (test code = See_Comment L [Automated 789-8) message] The system which generated this result transmit dain reference range : 4.26 - 5.52 10*6/?L. The reference range was not used to interpret this result as normal/abnormal . HGB (test code = 7.4 g/dL 12.2-16.4 L 718-7) HCT (test code = 22.2 % 38.4-49.3 L 4544-3) MCV (test code = 81.6 fL 81.7-95.6 L 787-2) MCH (test code = 27.2 pg 26.1-32.7 785-6) MCHC (test code = 33.3 g/dL 31.2-35 786-4) RDW-SD (test code = 45.7 fL 38.5-51.6 03168-5) RDW-CV (test code = 15.4 % 12.1-15.4 788-0) PLT (test code = See_Comment H [Automated 777-3) message] The system which generated this result transmit dain reference range : 150 - 328 10*3/ ?L. The reference range was not u sed to interpret th is result as normal/abnormal . MPV (test code = 8.9 fL 9.8-13 L 59847-7) NRBC/100 WBC (test See_Comment [Automat ed code = 6172908865) message] The system which generated this result transmit dain reference range : 0.0 - 10.0 /100 WBCs. The reference range was not used to interpret this result as normal/abnormal . NRBC x10^3 (test code <0.01 See_Comment [Auto mated = 0808170763) message] The system which generated this result transmit dain reference range : 10*3/?L. The reference range was not used to interpret this result as normal/abnormal . GRAN MAT (NEUT) % 82.6 % (test code = 770-8) IMM GRAN % (test code 0.60 % = 3575754114) LYMPH % (test code = 8.1 % 736-9) MONO % (test code = 8.1 % 5905-5) EOS % (test code = 0.4 % 713-8) BASO % (test code = 0.2 % 706-2) GRAN MAT x10^3(ANC) 11.18 10*3/uL 1.99-6.95 H (test code = 6624540631) IMM GRAN x10^3 (test 0.08 10*3/uL 0-0.06 H code = 1783166619) LYMPH x10^3 (test code 1.10 10*3/uL 1.09-3.23 = 731-0) MONO x10^3 (test code 1.09 10*3/uL 0.36-1.02 H = 742-7) EOS x10^3 (test code = 0.05 10*3/uL 0.06-0.53 L 711-2) BASO x10^3 (test code 0.03 10*3/uL 0.01-0.09 = 704-7) Lab Interpretation Abnormal (test code = 23735-8) [facility] METABOLIC PANEL (NA, K, CL, CO2, GLUCOSE, BUN, CREATININE, CA)2020-05-01 12:25:00 Test Item Value Reference Range Interpretation Comments NA (test code = 131 mmol/L 135-145 L 0151377401) K (test code = 4.7 mmol/L 3.5-5 2944065960) CL (test code = 97 mmol/L 98-108 L 1191499679) CO2 TOTAL (test code = 25 mmol/L 23-31 4538030306) AGAP (test code = 2-16 7955612940) BUN (test code = 30 mg/dL 7-23 H 4722215382) GLUCOSE (test code = 111 mg/dL 70-110 H 8895780917) CREATININE (test code = 0.69 mg/dL 0.6-1.25 4070616243) CALCIUM (test code = 9.3 mg/dL 8.6-10.6 8664191745) eGFR Calculation mL/min/1.73m2 (Non-) (test code = 8179812306) eGFR Calculation mL/min/1.73m2 () (test code = 0741086324) GILBERTO (test code = GILBERTO) Association of Glomerular Filtration Rate (GFR) and Staging of Kidney Disease* + --+ --+ ------+| GFR (mL/min/1.73 m2) ?| With Kidney Damage ?| ?Without Kidney Damage+ --------+ --------+ +| ?>90 ?| ?Stage one ?| ? Normal ?+ ---+ ---+ -------+| ?60-89 ?| ?Stage two ?| ? Decreased GFR ? + --+ --+ ------+| ?30-59 ?| ?Stage three ?| ? Stage three ? + --+ --+ ------+| ?15-29 ?| ?Stage four ? | ? Stage four ?+ ---+ ---+ -------+| ?<15 (or dialysis) ? ?| ?Stage five ? | ? Stage five ?+ ---+ ---+ -------+ *Each stage assumes the associated GFR level has been in effect for at least three months. ?Stages 1 to 5, with or without kidney disease, indicate chronic kidney disease. Notes: Determination of stages one and two (with eGFR >59mL/min/1.73 m2) requires estimation of kidney damage for at least three months as defined by structural or functional abnormalities of the kidney, manifested by either:Pathological abnormalities or Markers of kidney damage (including abnormalities in the composition of the blood or urine or abnormalities in imaging tests). Lab Interpretation Abnormal (test code = 45609-3) [facility]2020-[facility]-08 12:07:00 Test Item Value Reference Range Interpretation Comments MAGNESIUM (test code = 2578785766) 2.3 mg/dL 1.7-2.4 Lab Interpretation (test code = Normal 29515-7) [facility]2020-[facility]-08 12:07:00 Test Item Value Reference Range Interpretation Comments PHOSPHORUS (test code = 5317035035) 4.6 mg/dL 2.5-5 Lab Interpretation (test code = Normal 93338-7) [facility]CBC WITH [id number] 11:44:00 Test Item Value Reference Range Interpretation Comments WBC (test code = See_Comment H [Automated 6690-2) message] The system which generated this result transmit dain reference range : 4.20 - 10.70 10*3/?L. The reference range was not used to interpret this result as normal/abnormal . RBC (test code = See_Comment L [Automated 789-8) message] The system which generated this result transmit dain reference range : 4.26 - 5.52 10*6/?L. The reference range was not used to interpret this result as normal/abnormal . HGB (test code = 8.0 g/dL 12.2-16.4 L 718-7) HCT (test code = 24.6 % 38.4-49.3 L 4544-3) MCV (test code = 82.6 fL 81.7-95.6 787-2) MCH (test code = 26.8 pg 26.1-32.7 785-6) MCHC (test code = 32.5 g/dL 31.2-35 786-4) RDW-SD (test code = 44.9 fL 38.5-51.6 63023-3) RDW-CV (test code = 14.8 % 12.1-15.4 788-0) PLT (test code = See_Comment H [Automated 777-3) message] The system which generated this result transmit dain reference range : 150 - 328 10*3/ ?L. The reference range was not u sed to interpret th is result as normal/abnormal . MPV (test code = 9.1 fL 9.8-13 L 07692-4) NRBC/100 WBC (test See_Comment [Automat ed code = 0007455893) message] The system which generated this result transmit dain reference range : 0.0 - 10.0 /100 WBCs. The reference range was not used to interpret this result as normal/abnormal . NRBC x10^3 (test code <0.01 See_Comment [Auto mated = 0376979227) message] The system which generated this result transmit dain reference range : 10*3/?L. The reference range was not used to interpret this result as normal/abnormal . GRAN MAT (NEUT) % 81.4 % (test code = 770-8) IMM GRAN % (test code 0.70 % = 1294186134) LYMPH % (test code = 8.7 % 736-9) MONO % (test code = 8.5 % 5905-5) EOS % (test code = 0.3 % 713-8) BASO % (test code = 0.4 % 706-2) GRAN MAT x10^3(ANC) 12.01 10*3/uL 1.99-6.95 H (test code = 2689314566) IMM GRAN x10^3 (test 0.10 10*3/uL 0-0.06 H code = 8014179572) LYMPH x10^3 (test code 1.28 10*3/uL 1.09-3.23 = 731-0) MONO x10^3 (test code 1.25 10*3/uL 0.36-1.02 H = 742-7) EOS x10^3 (test code = 0.04 10*3/uL 0.06-0.53 L 711-2) BASO x10^3 (test code 0.06 10*3/uL 0.01-0.09 = 704-7) Lab Interpretation Abnormal (test code = 89294-4) [facility] METABOLIC PANEL (NA, K, CL, CO2, GLUCOSE, BUN, CREATININE, CA)2020-04-29 12:08:00 Test Item Value Reference Range Interpretation Comments NA (test code = 130 mmol/L 135-145 L 6894258855) K (test code = 5.0 mmol/L 3.5-5 5332257639) CL (test code = 94 mmol/L 98-108 L 5738503192) CO2 TOTAL (test code = 27 mmol/L 23-31 8582871099) AGAP (test code = 2-16 8844230777) BUN (test code = 35 mg/dL 7-23 H 5990220415) GLUCOSE (test code = 116 mg/dL 70-110 H 0630686922) CREATININE (test code = 0.76 mg/dL 0.6-1.25 8309617277) CALCIUM (test code = 9.0 mg/dL 8.6-10.6 6510131803) eGFR Calculation mL/min/1.73m2 (Non-) (test code = 9273261087) eGFR Calculation mL/min/1.73m2 () (test code = 7484614330) GILBERTO (test code = GILBERTO) Association of Glomerular Filtration Rate (GFR) and Staging of Kidney Disease* + --+ --+ ------+| GFR (mL/min/1.73 m2) ?| With Kidney Damage ?| ?Without Kidney Damage+ --------+ --------+ +| ?>90 ?| ?Stage one ?| ? Normal ?+ ---+ ---+ -------+| ?60-89 ?| ?Stage two ?| ? Decreased GFR ? + --+ --+ ------+| ?30-59 ?| ?Stage three ?| ? Stage three ? + --+ --+ ------+| ?15-29 ?| ?Stage four ? | ? Stage four ?+ ---+ ---+ -------+| ?<15 (or dialysis) ? ?| ?Stage five ? | ? Stage five ?+ ---+ ---+ -------+ *Each stage assumes the associated GFR level has been in effect for at least three months. ?Stages 1 to 5, with or without kidney disease, indicate chronic kidney disease. Notes: Determination of stages one and two (with eGFR >59mL/min/1.73 m2) requires estimation of kidney damage for at least three months as defined by structural or functional abnormalities of the kidney, manifested by either:Pathological abnormalities or Markers of kidney damage (including abnormalities in the composition of the blood or urine or abnormalities in imaging tests). Lab Interpretation Abnormal (test code = 95989-5) [facility] Test Item Value Reference Range Interpretation Comments MAGNESIUM (test code = 2031571482) 2.3 mg/dL 1.7-2.4 Lab Interpretation (test code = Normal 24731-0) [facility] 12:01:00 Test Item Value Reference Range Interpretation Comments PHOSPHORUS (test code = 0884865069) 4.5 mg/dL 2.5-5 Lab Interpretation (test code = Normal 98839-0) [facility] [id number] 11:52:00 Test Item Value Reference Range Interpretation Comments WBC (test code = See_Comment H [Automated 6690-2) message] The system which generated this result transmit dain reference range : 4.20 - 10.70 10*3/?L. The reference range was not used to interpret this result as normal/abnormal . RBC (test code = See_Comment L [Automated 789-8) message] The system which generated this result transmit dain reference range : 4.26 - 5.52 10*6/?L. The reference range was not used to interpret this result as normal/abnormal . HGB (test code = 8.2 g/dL 12.2-16.4 L 718-7) HCT (test code = 24.6 % 38.4-49.3 L 4544-3) MCV (test code = 82.3 fL 81.7-95.6 787-2) MCH (test code = 27.4 pg 26.1-32.7 785-6) MCHC (test code = 33.3 g/dL 31.2-35 786-4) RDW-SD (test code = 44.4 fL 38.5-51.6 21257-8) RDW-CV (test code = 14.7 % 12.1-15.4 788-0) PLT (test code = See_Comment H [Automated 777-3) message] The system which generated this result transmit dain reference range : 150 - 328 10*3/ ?L. The reference range was not u sed to interpret th is result as normal/abnormal . MPV (test code = 9.1 fL 9.8-13 L 61293-7) NRBC/100 WBC (test See_Comment [Automat ed code = 4268057971) message] The system which generated this result transmit dain reference range : 0.0 - 10.0 /100 WBCs. The reference range was not used to interpret this result as normal/abnormal . NRBC x10^3 (test code <0.01 See_Comment [Auto mated = 8547505469) message] The system which generated this result transmit dain reference range : 10*3/?L. The reference range was not used to interpret this result as normal/abnormal . GRAN MAT (NEUT) % 82.5 % (test code = 770-8) IMM GRAN % (test code 1.30 % = 4209780354) LYMPH % (test code = 7.1 % 736-9) MONO % (test code = 8.5 % 5905-5) EOS % (test code = 0.3 % 713-8) BASO % (test code = 0.3 % 706-2) GRAN MAT x10^3(ANC) 14.27 10*3/uL 1.99-6.95 H (test code = 2578220243) IMM GRAN x10^3 (test 0.23 10*3/uL 0-0.06 H code = 5844924014) LYMPH x10^3 (test code 1.23 10*3/uL 1.09-3.23 = 731-0) MONO x10^3 (test code 1.47 10*3/uL 0.36-1.02 H = 742-7) EOS x10^3 (test code = 0.05 10*3/uL 0.06-0.53 L 711-2) BASO x10^3 (test code 0.06 10*3/uL 0.01-0.09 = 704-7) Lab Interpretation Abnormal (test code = 91778-5) [facility] METABOLIC PANEL (NA, K, CL, CO2, GLUCOSE, BUN, CREATININE, CA)2020-04-28 10:15:00 Test Item Value Reference Range Interpretation Comments NA (test code = 130 mmol/L 135-145 L 2436718656) K (test code = 5.3 mmol/L 3.5-5 H 0206812536) CL (test code = 91 mmol/L 98-108 L 0017542821) CO2 TOTAL (test code = 29 mmol/L 23-31 7080413426) AGAP (test code = 2-16 3760989157) BUN (test code = 32 mg/dL 7-23 H 5607975271) GLUCOSE (test code = 101 mg/dL 70-110 6914528297) CREATININE (test code = 0.74 mg/dL 0.6-1.25 1212692894) CALCIUM (test code = 9.5 mg/dL 8.6-10.6 4124146233) eGFR Calculation mL/min/1.73m2 (Non-) (test code = 6085372969) eGFR Calculation mL/min/1.73m2 () (test code = 1233492331) GILBERTO (test code = GILBERTO) Association of Glomerular Filtration Rate (GFR) and Staging of Kidney Disease* + --+ --+ ------+| GFR (mL/min/1.73 m2) ?| With Kidney Damage ?| ?Without Kidney Damage+ --------+ --------+ +| ?>90 ?| ?Stage one ?| ? Normal ?+ ---+ ---+ -------+| ?60-89 ?| ?Stage two ?| ? Decreased GFR ? + --+ --+ ------+| ?30-59 ?| ?Stage three ?| ? Stage three ? + --+ --+ ------+| ?15-29 ?| ?Stage four ? | ? Stage four ?+ ---+ ---+ -------+| ?<15 (or dialysis) ? ?| ?Stage five ? | ? Stage five ?+ ---+ ---+ -------+ *Each stage assumes the associated GFR level has been in effect for at least three months. ?Stages 1 to 5, with or without kidney disease, indicate chronic kidney disease. Notes: Determination of stages one and two (with eGFR >59mL/min/1.73 m2) requires estimation of kidney damage for at least three months as defined by structural or functional abnormalities of the kidney, manifested by either:Pathological abnormalities or Markers of kidney damage (including abnormalities in the composition of the blood or urine or abnormalities in imaging tests). Lab Interpretation Abnormal (test code = 62475-3) [facility] Test Item Value Reference Range Interpretation Comments MAGNESIUM (test code = 6208054839) 2.3 mg/dL 1.7-2.4 Lab Interpretation (test code = Normal 42730-9) [facility] WITH [id number] 09:55:00 Test Item Value Reference Range Interpretation Comments WBC (test code = See_Comment H [Automated 6690-2) message] The system which generated this result transmit dain reference range : 4.20 - 10.70 10*3/?L. The reference range was not used to interpret this result as normal/abnormal . RBC (test code = See_Comment L [Automated 789-8) message] The system which generated this result transmit dain reference range : 4.26 - 5.52 10*6/?L. The reference range was not used to interpret this result as normal/abnormal . HGB (test code = 9.1 g/dL 12.2-16.4 L 718-7) HCT (test code = 28.1 % 38.4-49.3 L 4544-3) MCV (test code = 84.4 fL 81.7-95.6 787-2) MCH (test code = 27.3 pg 26.1-32.7 785-6) MCHC (test code = 32.4 g/dL 31.2-35 786-4) RDW-SD (test code = 45.1 fL 38.5-51.6 78537-3) RDW-CV (test code = 14.7 % 12.1-15.4 788-0) PLT (test code = See_Comment H [Automated 777-3) message] The system which generated this result transmit dain reference range : 150 - 328 10*3/ ?L. The reference range was not u sed to interpret th is result as normal/abnormal . MPV (test code = 9.5 fL 9.8-13 L 75723-6) NRBC/100 WBC (test See_Comment [Automat ed code = 2632231744) message] The system which generated this result transmit dain reference range : 0.0 - 10.0 /100 WBCs. The reference range was not used to interpret this result as normal/abnormal . NRBC x10^3 (test code <0.01 See_Comment [Auto mated = 1499210509) message] The system which generated this result transmit dain reference range : 10*3/?L. The reference range was not used to interpret this result as normal/abnormal . GRAN MAT (NEUT) % 81.1 % (test code = 770-8) IMM GRAN % (test code 1.40 % = 9960754967) LYMPH % (test code = 8.6 % 736-9) MONO % (test code = 7.9 % 5905-5) EOS % (test code = 0.5 % 713-8) BASO % (test code = 0.5 % 706-2) GRAN MAT x10^3(ANC) 14.68 10*3/uL 1.99-6.95 H (test code = 3170309691) IMM GRAN x10^3 (test 0.25 10*3/uL 0-0.06 H code = 6151973237) LYMPH x10^3 (test code 1.55 10*3/uL 1.09-3.23 = 731-0) MONO x10^3 (test code 1.43 10*3/uL 0.36-1.02 H = 742-7) EOS x10^3 (test code = 0.09 10*3/uL 0.06-0.53 711-2) BASO x10^3 (test code 0.09 10*3/uL 0.01-0.09 = 704-7) Lab Interpretation Abnormal (test code = 55298-7) [facility] METABOLIC PANEL (NA, K, CL, CO2, GLUCOSE, BUN, CREATININE, CA)2020-04-27 10:20:00 Test Item Value Reference Range Interpretation Comments NA (test code = 130 mmol/L 135-145 L 8526093894) K (test code = 4.5 mmol/L 3.5-5 3758570063) CL (test code = 93 mmol/L 98-108 L 4386313334) CO2 TOTAL (test code = 28 mmol/L 23-31 8495828730) AGAP (test code = 2-16 9069757474) BUN (test code = 31 mg/dL 7-23 H 3139132048) GLUCOSE (test code = 102 mg/dL 70-110 7029629641) CREATININE (test code = 0.81 mg/dL 0.6-1.25 9534960453) CALCIUM (test code = 9.0 mg/dL 8.6-10.6 6377332951) eGFR Calculation mL/min/1.73m2 (Non-) (test code = 8454147592) eGFR Calculation mL/min/1.73m2 () (test code = 8823088228) GILBERTO (test code = GILBERTO) Association of Glomerular Filtration Rate (GFR) and Staging of Kidney Disease* + --+ --+ ------+| GFR (mL/min/1.73 m2) ?| With Kidney Damage ?| ?Without Kidney Damage+ --------+ --------+ +| ?>90 ?| ?Stage one ?| ? Normal ?+ ---+ ---+ -------+| ?60-89 ?| ?Stage two ?| ? Decreased GFR ? + --+ --+ ------+| ?30-59 ?| ?Stage three ?| ? Stage three ? + --+ --+ ------+| ?15-29 ?| ?Stage four ? | ? Stage four ?+ ---+ ---+ -------+| ?<15 (or dialysis) ? ?| ?Stage five ? | ? Stage five ?+ ---+ ---+ -------+ *Each stage assumes the associated GFR level has been in effect for at least three months. ?Stages 1 to 5, with or without kidney disease, indicate chronic kidney disease. Notes: Determination of stages one and two (with eGFR >59mL/min/1.73 m2) requires estimation of kidney damage for at least three months as defined by structural or functional abnormalities of the kidney, manifested by either:Pathological abnormalities or Markers of kidney damage (including abnormalities in the composition of the blood or urine or abnormalities in imaging tests). Lab Interpretation Abnormal (test code = 84561-9) [facility]20:00 Test Item Value Reference Range Interpretation Comments MAGNESIUM (test code = 1616572452) 2.2 mg/dL 1.7-2.4 Lab Interpretation (test code = Normal 53805-3) [facility] WITH [id number] 09:49:00 Test Item Value Reference Range Interpretation Comments WBC (test code = See_Comment H [Automated 6690-2) message] The system which generated this result transmit dain reference range : 4.20 - 10.70 10*3/?L. The reference range was not used to interpret this result as normal/abnormal . RBC (test code = See_Comment L [Automated 789-8) message] The system which generated this result transmit dain reference range : 4.26 - 5.52 10*6/?L. The reference range was not used to interpret this result as normal/abnormal . HGB (test code = 8.7 g/dL 12.2-16.4 L 718-7) HCT (test code = 27.4 % 38.4-49.3 L 4544-3) MCV (test code = 84.8 fL 81.7-95.6 787-2) MCH (test code = 26.9 pg 26.1-32.7 785-6) MCHC (test code = 31.8 g/dL 31.2-35 786-4) RDW-SD (test code = 45.2 fL 38.5-51.6 04748-4) RDW-CV (test code = 14.5 % 12.1-15.4 788-0) PLT (test code = See_Comment H [Automated 777-3) message] The system which generated this result transmit dain reference range : 150 - 328 10*3/ ?L. The reference range was not u sed to interpret th is result as normal/abnormal . MPV (test code = 9.0 fL 9.8-13 L 21693-0) NRBC/100 WBC (test See_Comment [Automat ed code = 1656244571) message] The system which generated this result transmit dain reference range : 0.0 - 10.0 /100 WBCs. The reference range was not used to interpret this result as normal/abnormal . NRBC x10^3 (test code <0.01 See_Comment [Auto mated = 4692153455) message] The system which generated this result transmit dain reference range : 10*3/?L. The reference range was not used to interpret this result as normal/abnormal . GRAN MAT (NEUT) % 80.9 % (test code = 770-8) IMM GRAN % (test code 1.30 % = 6039314076) LYMPH % (test code = 8.9 % 736-9) MONO % (test code = 7.7 % 5905-5) EOS % (test code = 0.6 % 713-8) BASO % (test code = 0.6 % 706-2) GRAN MAT x10^3(ANC) 13.18 10*3/uL 1.99-6.95 H (test code = 2284276690) IMM GRAN x10^3 (test 0.21 10*3/uL 0-0.06 H code = 2608991349) LYMPH x10^3 (test code 1.45 10*3/uL 1.09-3.23 = 731-0) MONO x10^3 (test code 1.26 10*3/uL 0.36-1.02 H = 742-7) EOS x10^3 (test code = 0.09 10*3/uL 0.06-0.53 711-2) BASO x10^3 (test code 0.10 10*3/uL 0.01-0.09 H = 704-7) Lab Interpretation Abnormal (test code = 68411-5) [facility] (NA, K, CL, CO2, GLUCOSE, BUN, CREATININE, CA)2020-04-26 11:29:00 Test Item Value Reference Range Interpretation Comments NA (test code = 133 mmol/L 135-145 L 7027991695) K (test code = 4.7 mmol/L 3.5-5 8240227521) CL (test code = 98 mmol/L 98-108 4827699718) CO2 TOTAL (test code = 25 mmol/L 23-31 1011194393) AGAP (test code = 2-16 9892588947) BUN (test code = 26 mg/dL 7-23 H 5981799996) GLUCOSE (test code = 97 mg/dL 70-110 8749523621) CREATININE (test code = 0.73 mg/dL 0.6-1.25 1721987748) CALCIUM (test code = 8.7 mg/dL 8.6-10.6 0418797122) eGFR Calculation mL/min/1.73m2 (Non-) (test code = 7029117203) eGFR Calculation mL/min/1.73m2 () (test code = 3949742998) GILBERTO (test code = GILBERTO) Association of Glomerular Filtration Rate (GFR) and Staging of Kidney Disease* + --+ --+ ------+| GFR (mL/min/1.73 m2) ?| With Kidney Damage ?| ?Without Kidney Damage+ --------+ --------+ +| ?>90 ?| ?Stage one ?| ? Normal ?+ ---+ ---+ -------+| ?60-89 ?| ?Stage two ?| ? Decreased GFR ? + --+ --+ ------+| ?30-59 ?| ?Stage three ?| ? Stage three ? + --+ --+ ------+| ?15-29 ?| ?Stage four ? | ? Stage four ?+ ---+ ---+ -------+| ?<15 (or dialysis) ? ?| ?Stage five ? | ? Stage five ?+ ---+ ---+ -------+ *Each stage assumes the associated GFR level has been in effect for at least three months. ?Stages 1 to 5, with or without kidney disease, indicate chronic kidney disease. Notes: Determination of stages one and two (with eGFR >59mL/min/1.73 m2) requires estimation of kidney damage for at least three months as defined by structural or functional abnormalities of the kidney, manifested by either:Pathological abnormalities or Markers of kidney damage (including abnormalities in the composition of the blood or urine or abnormalities in imaging tests). Lab Interpretation Abnormal (test code = 43420-5) [facility] 11[facility]29[facility]00 Test Item Value Reference Range Interpretation Comments MAGNESIUM (test code = 8997756884) 2.1 mg/dL 1.7-2.4 Lab Interpretation (test code = Normal 21803-5) [facility] [id number] 10:27:00 Test Item Value Reference Range Interpretation Comments WBC (test code = See_Comment H [Automated 6690-2) message] The system which generated this result transmit dain reference range : 4.20 - 10.70 10*3/?L. The reference range was not used to interpret this result as normal/abnormal . RBC (test code = See_Comment L [Automated 789-8) message] The system which generated this result transmit dain reference range : 4.26 - 5.52 10*6/?L. The reference range was not used to interpret this result as normal/abnormal . HGB (test code = 8.4 g/dL 12.2-16.4 L 718-7) HCT (test code = 26.4 % 38.4-49.3 L 4544-3) MCV (test code = 85.7 fL 81.7-95.6 787-2) MCH (test code = 27.3 pg 26.1-32.7 785-6) MCHC (test code = 31.8 g/dL 31.2-35 786-4) RDW-SD (test code = 45.4 fL 38.5-51.6 58066-4) RDW-CV (test code = 14.5 % 12.1-15.4 788-0) PLT (test code = See_Comment H [Automated 777-3) message] The system which generated this result transmit dain reference range : 150 - 328 10*3/ ?L. The reference range was not u sed to interpret th is result as normal/abnormal . MPV (test code = 9.3 fL 9.8-13 L 53147-5) NRBC/100 WBC (test See_Comment [Automat ed code = 5142548453) message] The system which generated this result transmit dain reference range : 0.0 - 10.0 /100 WBCs. The reference range was not used to interpret this result as normal/abnormal . NRBC x10^3 (test code <0.01 See_Comment [Auto mated = 6338639965) message] The system which generated this result transmit dain reference range : 10*3/?L. The reference range was not used to interpret this result as normal/abnormal . GRAN MAT (NEUT) % 79.6 % (test code = 770-8) IMM GRAN % (test code 1.30 % = 7896517464) LYMPH % (test code = 8.6 % 736-9) MONO % (test code = 9.3 % 5905-5) EOS % (test code = 0.8 % 713-8) BASO % (test code = 0.4 % 706-2) GRAN MAT x10^3(ANC) 12.46 10*3/uL 1.99-6.95 H (test code = 1878924639) IMM GRAN x10^3 (test 0.21 10*3/uL 0-0.06 H code = 8657384374) LYMPH x10^3 (test code 1.34 10*3/uL 1.09-3.23 = 731-0) MONO x10^3 (test code 1.45 10*3/uL 0.36-1.02 H = 742-7) EOS x10^3 (test code = 0.13 10*3/uL 0.06-0.53 711-2) BASO x10^3 (test code 0.07 10*3/uL 0.01-0.09 = 704-7) Lab Interpretation Abnormal (test code = 53526-9) [facility] METABOLIC PANEL (NA, K, CL, CO2, GLUCOSE, BUN, CREATININE, CA)2020-04-25 10:03:00 Test Item Value Reference Range Interpretation Comments NA (test code = 133 mmol/L 135-145 L 1323987518) K (test code = 4.6 mmol/L 3.5-5 6974313321) CL (test code = 96 mmol/L 98-108 L 7068491237) CO2 TOTAL (test code = 27 mmol/L 23-31 3678025851) AGAP (test code = 2-16 5962509023) BUN (test code = 21 mg/dL 7-23 2402197128) GLUCOSE (test code = 108 mg/dL 70-110 1290047430) CREATININE (test code = 0.76 mg/dL 0.6-1.25 9469154141) CALCIUM (test code = 9.5 mg/dL 8.6-10.6 5815316458) eGFR Calculation mL/min/1.73m2 (Non-) (test code = 0574438517) eGFR Calculation mL/min/1.73m2 () (test code = 4178029505) GILBERTO (test code = GILBERTO) Association of Glomerular Filtration Rate (GFR) and Staging of Kidney Disease* + --+ --+ ------+| GFR (mL/min/1.73 m2) ?| With Kidney Damage ?| ?Without Kidney Damage+ --------+ --------+ +| ?>90 ?| ?Stage one ?| ? Normal ?+ ---+ ---+ -------+| ?60-89 ?| ?Stage two ?| ? Decreased GFR ? + --+ --+ ------+| ?30-59 ?| ?Stage three ?| ? Stage three ? + --+ --+ ------+| ?15-29 ?| ?Stage four ? | ? Stage four ?+ ---+ ---+ -------+| ?<15 (or dialysis) ? ?| ?Stage five ? | ? Stage five ?+ ---+ ---+ -------+ *Each stage assumes the associated GFR level has been in effect for at least three months. ?Stages 1 to 5, with or without kidney disease, indicate chronic kidney disease. Notes: Determination of stages one and two (with eGFR >59mL/min/1.73 m2) requires estimation of kidney damage for at least three months as defined by structural or functional abnormalities of the kidney, manifested by either:Pathological abnormalities or Markers of kidney damage (including abnormalities in the composition of the blood or urine or abnormalities in imaging tests). Lab Interpretation Abnormal (test code = 68138-7) [facility] 10:03:00 Test Item Value Reference Range Interpretation Comments MAGNESIUM (test code = 0043135448) 2.4 mg/dL 1.7-2.4 Lab Interpretation (test code = Normal 39747-3) [facility] WITH [id number] 09:48:00 Test Item Value Reference Range Interpretation Comments WBC (test code = See_Comment H [Automated 8894-2) message] The system which generated this result transmit dain reference range : 4.20 - 10.70 10*3/?L. The reference range was not used to interpret this result as normal/abnormal . RBC (test code = See_Comment L [Automated 067-8) message] The system which generated this result transmit dain reference range : 4.26 - 5.52 10*6/?L. The reference range was not used to interpret this result as normal/abnormal . HGB (test code = 10.0 g/dL 12.2-16.4 L 718-7) HCT (test code = 31.3 % 38.4-49.3 L 4544-3) MCV (test code = 86.7 fL 81.7-95.6 787-2) MCH (test code = 27.7 pg 26.1-32.7 785-6) MCHC (test code = 31.9 g/dL 31.2-35 786-4) RDW-SD (test code = 45.7 fL 38.5-51.6 14081-4) RDW-CV (test code = 14.3 % 12.1-15.4 788-0) PLT (test code = See_Comment HH [Automated 777-3) message] The system which generated this result transmit dain reference range : 150 - 328 10*3/ ?L. The reference range was not u sed to interpret th is result as normal/abnormal . MPV (test code = 9.1 fL 9.8-13 L 78993-3) NRBC/100 WBC (test See_Comment [Automat ed code = 2735061764) message] The system which generated this result transmit dain reference range : 0.0 - 10.0 /100 WBCs. The reference range was not used to interpret this result as normal/abnormal . NRBC x10^3 (test code <0.01 See_Comment [Auto mated = 9157061011) message] The system which generated this result transmit dain reference range : 10*3/?L. The reference range was not used to interpret this result as normal/abnormal . GRAN MAT (NEUT) % 78.9 % (test code = 770-8) IMM GRAN % (test code 1.70 % = 9670957938) LYMPH % (test code = 8.7 % 736-9) MONO % (test code = 9.1 % 5905-5) EOS % (test code = 0.9 % 713-8) BASO % (test code = 0.7 % 706-2) GRAN MAT x10^3(ANC) 11.96 10*3/uL 1.99-6.95 H (test code = 1079884157) IMM GRAN x10^3 (test 0.26 10*3/uL 0-0.06 H code = 0578982077) LYMPH x10^3 (test code 1.32 10*3/uL 1.09-3.23 = 731-0) MONO x10^3 (test code 1.38 10*3/uL 0.36-1.02 H = 742-7) EOS x10^3 (test code = 0.13 10*3/uL 0.06-0.53 711-2) BASO x10^3 (test code 0.11 10*3/uL 0.01-0.09 H = 704-7) Lab Interpretation Abnormal (test code = 78206-8) [facility] WITH [id number] 10:40:00 Test Item Value Reference Range Interpretation Comments WBC (test code = See_Comment H [Automated 6690-2) message] The sy stem which generated this result transmitted reference range : 4.20 - 10.70 10*3/?L. The reference range was not used to interpret this result as normal/abnormal . RBC (test code = See_Comment L [Automated 789-8) message] The sy stem which generated this result transmitted reference range : 4.26 - 5.52 10*6/?L. The reference range was not used to interpret this result as normal/abnormal . HGB (test code = 7.5 g/dL 12.2-16.4 L 718-7) HCT (test code = 23.3 % 38.4-49.3 L 4544-3) MCV (test code = 86.6 fL 81.7-95.6 787-2) MCH (test code = 27.9 pg 26.1-32.7 785-6) MCHC (test code = 32.2 g/dL 31.2-35 786-4) RDW-SD (test code = 46.3 fL 38.5-51.6 09192-9) RDW-CV (test code = 14.5 % 12.1-15.4 788-0) PLT (test code = See_Comment HH [Automated 777-3) message] The sy stem which generated this result transmitted reference range : 150 - 328 10*3/ ?L. The reference r meredith was not used to interpret this result as normal/abnormal . MPV (test code = 9.1 fL 9.8-13 L 53938-8) NRBC/100 WBC (test See_Comment [Automat ed code = 3670897271) message] The system which generated this result transmitted reference range : 0.0 - 10.0 /100 WBCs. The refer ence range was not u sed to interpret th is result as normal/abnormal . NRBC x10^3 (test code <0.01 See_Comment [Auto mated = 7871220272) message] The s ystem which generated this result transmitted reference range : 10*3/?L. The reference range was not used to interpret this result as normal/abnormal . GRAN MAT (NEUT) % 74.7 % (test code = 770-8) IMM GRAN % (test code 2.00 % = 2838731610) LYMPH % (test code = 10.0 % 736-9) MONO % (test code = 11.4 % 5905-5) EOS % (test code = 1.3 % 713-8) BASO % (test code = 0.6 % 706-2) GRAN MAT x10^3(ANC) 9.44 10*3/uL 1.99-6.95 H (test code = 8558375168) IMM GRAN x10^3 (test 0.25 10*3/uL 0-0.06 H code = 4906995358) LYMPH x10^3 (test code 1.26 10*3/uL 1.09-3.23 = 731-0) MONO x10^3 (test code 1.44 10*3/uL 0.36-1.02 H = 742-7) EOS x10^3 (test code = 0.16 10*3/uL 0.06-0.53 711-2) BASO x10^3 (test code 0.07 10*3/uL 0.01-0.09 = 704-7) Lab Interpretation Abnormal (test code = 66996-7) [facility] METABOLIC PANEL (NA, K, CL, CO2, GLUCOSE, BUN, CREATININE, CA)2020-04-24 10:39:00 Test Item Value Reference Range Interpretation Comments NA (test code = 133 mmol/L 135-145 L 4062675589) K (test code = 4.3 mmol/L 3.5-5 3474014457) CL (test code = 99 mmol/L 98-108 3003779353) CO2 TOTAL (test code = 29 mmol/L 23-31 8021205426) AGAP (test code = 2-16 2814735314) BUN (test code = 20 mg/dL 7-23 2191050832) GLUCOSE (test code = 109 mg/dL 70-110 6120022312) CREATININE (test code = 0.78 mg/dL 0.6-1.25 7335229331) CALCIUM (test code = 8.4 mg/dL 8.6-10.6 L 6301138695) eGFR Calculation mL/min/1.73m2 (Non-) (test code = 4967014657) eGFR Calculation mL/min/1.73m2 () (test code = 8188257107) GILBERTO (test code = GILBERTO) Association of Glomerular Filtration Rate (GFR) and Staging of Kidney Disease* + --+ --+ ------+| GFR (mL/min/1.73 m2) ?| With Kidney Damage ?| ?Without Kidney Damage+ --------+ --------+ +| ?>90 ?| ?Stage one ?| ? Normal ?+ ---+ ---+ -------+| ?60-89 ?| ?Stage two ?| ? Decreased GFR ? + --+ --+ ------+| ?30-59 ?| ?Stage three ?| ? Stage three ? + --+ --+ ------+| ?15-29 ?| ?Stage four ? | ? Stage four ?+ ---+ ---+ -------+| ?<15 (or dialysis) ? ?| ?Stage five ? | ? Stage five ?+ ---+ ---+ -------+ *Each stage assumes the associated GFR level has been in effect for at least three months. ?Stages 1 to 5, with or without kidney disease, indicate chronic kidney disease. Notes: Determination of stages one and two (with eGFR >59mL/min/1.73 m2) requires estimation of kidney damage for at least three months as defined by structural or functional abnormalities of the kidney, manifested by either:Pathological abnormalities or Markers of kidney damage (including abnormalities in the composition of the blood or urine or abnormalities in imaging tests). Lab Interpretation Abnormal (test code = 48871-1) [facility] Test Item Value Reference Range Interpretation Comments MAGNESIUM (test code = 0817913598) 2.2 mg/dL 1.7-2.4 Lab Interpretation (test code = Normal 67869-9) [facility] [id number] 09:30:06 1. ?Overall, no significant change in size of multiple large loculated gasand fluid containing collections in the abdomen (since 04/16/2020). 2. ?Interval removal of right approach drainage catheter. 3. 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 4. ?Unchanged mildly edematous appearance of small bowel, probablyreactive. 5. ?Mild thickening of the urinary bladder dome is likely reactive.Consider checking UA. 6. ?Unchanged soft tissue defect in the ventral abdominal wall at the siteof midline incision (containing packing material). 7. ?Mild additional findings as above. Preliminary Report Dictated by Resident: Louis Ames MD., have reviewed this study and agree with theabove report.EXAM: CT ABDOMEN AND PELVIS WITH CONTRAST HISTORY:Acute generalized abdominal pain. Postoperative with fever. COMPARISON: 04/12/2020, 04/16/2020. DOSE: Total exam DLP [867 ] mGy-cm TECHNIQUE AND FINDINGS: Contiguous axial imaging from the level of the lungbases through the proximal femurs was performed after the uncomplicatedadministration of 100 cc ofintravenous Omnipaque contrast. Coronal andsagittal reconstructions were obtained. Auto mA and/or ite rativereconstruction were used to reduce radiation dose. FINDINGS: LOWER THORAX: See separately dictated CT chest report for thoracicfindings. LIVER: Hepatomegaly (25.8 cm craniocaudally). Diminutive left hepatic lobe.See below for subdiaphragmatic and subcapsular hepatic collections. Normalcontour. GA LLBLADDER AND BILIARY TREE: No biliary ductal dilation. The gallbladderis completely decompressed. Small amount of fluid adjacent to thegallbladder, unchanged. SPLEEN: No splenomegaly. Perisplenic collection as below. PANCREAS: No ductal dilation or masses. ADRENAL GLANDS: No adrenal nodules. KIDNEYS: Subcentimeter hypoattenuating lesion within the left upper renalpole is too small to characterize. No hydronephrosis, stones, or solidmasses. PERITONEUM AND RETROPERITONEUM: No free air. Multiple intra-abdominal loculated collections:* ?Scalloped 5.1 x 3.9 x 2.3 cm (AP x TV x CC) right subdiaphragmaticcollection abutting the dome of the liver (5:18), previously measuring upto 6.1 cm.* ?A 2.1 cm subcapsular hypoattenuating lesion/collection within segment 6previously measured 2.7 cm (5:60). * ?A 5.9 x 2.5 x 5.5 cm (AP x TV x CC) perisplenic collection abutting theinferior spleen (5:39), essentially unchanged and in communication with theleft subdiaphragmatic gaseous and fluid containing collection drained bypigtail catheter.* ?Peripherally enhancing multiloculated 5.4 x 25 x 23.5 cm (AP x TV x CC)gas and fluid containing collection spanning the bilateral upper abdomenand right lower abdomen, essentially unchanged. Interval removal of largebore right upper quadrant drain.* ?A 4.4 cm collection within the right lower quadrant containing pigtailcatheter (5:91), previously measured 4.8 cm. A left abdominal approach surgical drainage catheter terminates within theright hemipelvis. No significant drainable collection surrounded the tip ofthe catheter. Diffuse mesenteric haziness. LYMPH NODES: No lym phadenopathy. Mildly prominent 1.1 cm todd hepaticlymph node (5:49), unchanged. 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 No bowel dilation. Edematousappearing small bowel with mural thickening and hyperenhancement, likelyreactive. PELVIS/BLADDER: Moderately distended urinary bladder with mild wallthickening, similar prior. VESSELS: Mild calcified atherosclerosis of the left common iliac artery.Mildly dilated main portal vein measuring 1.8 cm in AP diameter just abovethe splenic vein confluence. BONES AND SOFT TISSUES: Subcutaneous soft tissue defect at the midline incision contains packingmaterial, unchanged. A 1.7 cm radiolucent lesion within the L4 vertebral body, unchanged andwithout aggressive feature. Steeply angulated coccyx. No acute oraggressive osseous abnormality. [facility], Radiant Results Inft User - 04/24/2020 4:31 AM CDTEXAM: CT ABDOMEN AND PELVIS WITH CONTRASTHISTORY: Acute generalized abdominal pain. Postoperative with fever.COMPARISON: 04/12/2020, 04/16/2020.DOSE: Total exam DLP [867 ] mGy-cmTECHNIQUE AND FINDINGS: Contiguous axial imaging from the level of the lungbases through the proximal femurs was performed after the uncomplicatedadministration of 100 cc of intravenous Omnipaque contrast. Coronal andsagittal reconstructions were obtained. Auto mA and/or iterativereconstruction were used to reduce radiation dose.FINDINGS:LOWER THORAX: See separately dictated CT chest report for thoracicfindings.LIVER: Hep atomegaly (25.8 cm craniocaudally). Diminutive left hepatic lobe.See below for subdiaphragmatic and subcapsular hepatic collections. Normalcontour.GALLBLADDER AND BILIARY TREE: No biliary ductal dilation. The gallbladderis completely decompressed. Small amount of fluid adjacent to thegallbladder, uncha nged.SPLEEN: No splenomegaly. Perisplenic collection as below.PANCREAS: No ductal dilation or masses.ADRENAL GLANDS: No adrenal nodules.KIDNEYS: Subcentimeter hypoattenuating lesion within the left upper renalpole is too small to characterize. No hydronephrosis, stones, or solidmasses.PERITONEUM AND RETROPERITONEUM: No free air.Multiple intra-abdominal loculated collections:* Scalloped 5.1 x 3.9 x 2.3 cm (AP x TV x CC) right subdiaphragmaticcollection abutting the dome of the liver (5:18), previously measuring upto 6.1 cm.* A 2.1 cm subcapsular hypoattenuating lesion/collection within segment 6previously measured 2.7 cm (5:60). * A 5.9 x 2.5 x 5.5 cm (AP x TV x CC) perisplenic collection abutting theinferior spleen (5:39), essentially unchanged and in communication with theleft subdiaphragmatic gaseous and fluid containing collection drained bypigtail catheter.* Peripherally enhancing multiloculated 5.4 x 25 x 23.5 cm (AP x TV x CC)gas and fluid containing collection spanning the bilateral upper abdomenand right lower abdomen, essentially unchanged. Interval removal of largebore right upper quadrant drain.* A 4.4 cm collection within the right lower quadrant containing pigtailcatheter (5:91),previously measured 4.8 cm.A left abdominal approach surgical drainage catheter terminates within theright hemipelvis. No significant drainable collection surrounded the tip ofthe catheter. Diffuse mesenteric haziness.LYMPH NODES: No lymphadenopathy. 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 No bowel dilation. Edematousappearing small bowel with mural thickening and hyperenhancement, likelyreactive.PELVIS/BLADDER: Moderately distended urinary bladder with mild wallthickening, similar prior. VESSELS: Mild calcified atherosclerosis of the left common iliac artery.Mildly dilated main portal vein measuring 1.8 cm in AP diameter just abovethe splenic vein confluence.BONES AND SOFT TISSUES: Subcutaneous soft tissue defect at the midline incision contains packingmaterial, unchanged. A 1.7 cm radiolucent lesion within the L4 vertebral body, unchanged andwithout aggressive feature. Steeply angulated coccyx. No acute oraggressive osseous abnormality.IMPRESSION1. Overall, no significant change in size of multiple large loculated gasand fluid containing collections in the abdomen (since 04/16/2020).2. Interval removal of right approach drainage catheter.3. 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 4. Unchanged mildly edematous a ppearance of small bowel, probablyreactive.5. Mild thickening of the urinary bladder dome is likely reactive.Consider checking UA.6. Unchanged soft tissue defect in the ventral abdominal wall at the siteof midline incision (containing packing material).7. Mild additional findings as above.Preliminary Report Dictated by Resident: Louis Dixon MD., have reviewed this study and agree with theabove report.[facility] [id number] 03:46:28 Acute pulmonary emboli in the anterior segmental branch supplying the leftupper lobe. No CT findings of right heart strain. Moderate-sized loculated left hydropneumothorax. Pleural fistula to thesubdiaphragmatic collection should be considered. Focal hypoattenuatingarea within the anterior left diaphragm on 601:60 and 603:68 may representa defect or represent artifacta. Visualization is suboptimal. Small right pleural effusion with associated atelectasis. Loculated gas containing collections of in the upper abdomen with leftquadrant drain. Please refer to the concurrently obtained the separatelydictated abdominal CT report for details. Additional findings as above. Findings relayed to Dr. Flanagan 7:23 PM via telephone. Preliminary Report Dictated by Resident: Louis Rios MD., have reviewed this study and agree with theabove report.PROCEDURE: CT CHEST WITH CONTRAST - CHEST PROTOCOL CLINICAL INDICATION: Pneumonia, unresolved or complicated ? COMPARISON: Same day chest radiograph TECHNIQUE: ?Helical CT was performed of the chest (lung apices to bases)using 100 mL Omnipaque 350 nonionic intravenous contrast, withoutcomplication. Imageswere reconstructed at 1.25 mm slice thickness. MIP andcoronal & sagittal MPR images were generated and reviewed. (DFOV = 40 cm) FINDINGS: The lower neck is unremarkable. Normal thyroid gland. Contrast bolus timing is excellent for evaluation of pulmonary tovasculature. Acute pulmonary emboli in the left upper lobe anterior segmental branch(2:114, 2:112). No other acute pulmonary emboli are seen. No CT evidence of right heart strain. The pulmonary trunk is normal incaliber. Elevated left hemidiaphragm. Small left pleural effusion with layeringpleural fluid extending medially to the posterior mediastinum withintermixed foci of gas and moderate sized pneumothorax extending to theapex posteriorly.Fistula subdiaphragmatic collection is a possibility butone is not definitely visualized. Small right pleural effusion with adjacent compressive atelectasis. Subtle peribronchovascular nodularity in the left lower lobe on 601:96,specifically. Mild groundglass opacity within the right lung apex best seenon coronal image 601:57 probably represents atelectasis. Bibasilar linear opacities with interlobular septal thickening, likelysubsegmental atelectasis with scarring. No right pneumothorax. Solid 3 mmright lower lobe pulmonary nodule on2:183. The central airways are patent. Normal diameter of the thoracic aorta. Three-vessel aortic arch anatomy. Trace proximal LAD coronary arterial calcification. Normal heart size andmorphology. No significant pericardial thickening or effusion. Oftadeys-ke-yiecw cardiomediastinal shift. Scattered subcentimeter mediastinal and bilateral hilar nodes, nonspecificbut likely reactive. No suspicious or aggressive osseous lesion. No lines/tubes in place in the chest. Abdominal drain in the left upperquadrant. Multiple loculated gas containing collections with peripheral enhancementin the upper abdomen, partially visualized. Please refer to the same-dayabdomen ?report for detailed findings in the abdomen. [facility], [facility]iant Results Inft User - 04/23/2020 10:47 PM CDTPROCEDURE: CT CHEST WITH CONTRAST - CHEST PROTOCOLCLINICAL INDICATION: Pneumonia, unresolved or complicated COMPARISON: Same day chest radiographTECHNIQUE: Helical CT was performed of the chest (lung apices to bases)using 100 mL Omnipaque 350 nonionic intravenous contrast, withoutcomplication. Images were reconstructed at 1.25 mm slice thickness. MIP andcoronal & sagittal MPR images were generated and reviewed. (DFOV = 40 cm)FINDINGS:The lower neck is unremarkable. Normal thyroid gland.Contrast bolus timing is excellent for evaluation of pulmonary tovasculature.Acute pulmonary emboli in the left upper lobe anterior segmental branch(2:114, 2:112). No other acute pulmonary emboli are seen. No CT evidence of right heart strain. The pulmonary trunk is normal incaliber.Elevated left hemidiaphragm. Small left pleural effusion with layeringpleural fluid extending mediallyto the posterior mediastinum withintermixed foci of gas and moderate sized pneumothorax extending totheapex posteriorly. Fistula subdiaphragmatic collection is a possibility butone is not definitely visualized.Small right pleural effusion with adjacent compressive atelectasis. Subtle peribronchovascul ar nodularity in the left lower lobe on 601:96,specifically. Mild groundglass opacity within the right lung apex best seenon coronal image 601:57 probably represents atelectasis. Bibasilar linear opacities with interlobular septal thickening, likelysubsegmental atelectasis with scarring. No right pneumothorax. Solid 3 mm right lower lobe pulmonary nodule on2:183. The central airways are patent. Normal diameter of the thoracic aorta. Three-vessel aortic arch anatomy.Trace proximal LAD coronary arterial calcification. Normal heart size andmorphology. No significant pericardial thickening or effusion. Aywskzcz-jh-qyvno cardiomediastinal shift.Scattered subcentimeter mediastinal and bilateral hilar nodes, nonspecificbut likely reactive. No suspicious or aggressive osseous lesion. No lines/tubes in place in the chest. Abdominal drain in the left upperquadrant.Multiple loculated gas containing collections with peripheral enhancementin the upper abdomen, partially visualized. Please refer to the same-dayabdomen report for detailed findings in the abdomen. IMPRESSIONAcute pulmonary emboli in the anterior segmental branch supplying the leftupper lobe. No CT findings of right heart strain. Moderate-sized loculated left hydropneumothorax. Pleural fistula to thesubdiaphragmatic collection should be considered. Focal hypoattenuatingarea within the anterior left diaphragm on 601:60 and 603:68 may representa defect or represent artifacta. Visualization is suboptimal.Small right pleural effusion with associated atelectasis.Loculated gas containing collections of in the upper abdomen with leftquadrant drain. Please refer to the concurrently obtained the separatelydictated abdominal CT report for details.Additional findings as above.Findings relayed to Dr. Godoy at 7:23 PM via telephone. Preliminary Report Dictated by Resident: Dwain Cummings, Louis Rice MD., have reviewed this study and agree with theabove report.[facility] CenterCOVID-19 (ID NOW RAPID TESTING)2020-04-23 17:45:00 Test Item Value Reference Range Interpretation Comments SARS-CoV-2 Rapid ID NOW Not Detected Not Detected (test code = 54522-7) GILBERTO (test code = GILBERTO) ID NOW COVID-19 Assay is an isothermal nucleic acid amplification test intended for the qualitative detection of nucleic acid from SARS-CoV-2 viral RNA in nasopharyngeal (HUMAN GEOGRAPHY INSTRUCTOR) specimens. It is used under Emergency Use Authorization (EUA) by FDA. The limit of detection (LOD) of the assay is 125 Genome Equivalents/mL. A positive result is indicative of the presence of SARS-CoV-2 RNA. ?Clinical correlation with patient history and other diagnostic information is necessary to determine patient infection status. A negative (Not Detected) result does not preclude SARS-CoV-2 infection. In patients with clinical symptoms and other tests that are consistent with SARS-CoV-2 infection, negative results should be treated as presumptive negative and a new specimen should be tested with alternative PCR molecular test. Invalid: Please collect a new specimen for repeat patient testing if clinically indicated. Lab Interpretation Normal (test code = 68170-9) [facility] CenterPRE[facility]UMIN2020-08-31 17:40:00 Test Item Value Reference Range Interpretation Comments PALB (test code = 39002-8) 11.8 mg/dL 18-45 L Lab Interpretation (test code = Abnormal 70617-7) [facility] CenterXR [facility] 1 [id number] 15:00:55 Stable appearance of left pleural effusion and left lung atelectasis. Preliminary Report Dictated by Resident: Bart De La Torre I reviewed this study and agree. IWeston MD., have reviewed this study and agree with theabove report.EXAM: XR CHEST 1 VW CLINICAL INDICATION: 50 years-old Male; left pleural effusion COMPARISON: CXR 04/22/2020 FINDINGS: The tip of a left pigtail catheter remains projecting over the left lowerlung. The previously seen abdominal pigtail catheter is not visualized. The left sided pleural effusion continues to obscure the left costophrenicangle and is mostly unchanged from prior. The lungs are well expanded apartfrom atelectasis in the left middle/lower lung spaces. No interval rightsided pleural effusion or pneumothorax. The cardiomediastinal silhouette is normal. No acute osseous abnormality. [facility], [facility] Results Inft User - 04/23/2020 10:02 AM CDTEXAM: XR CHEST 1 VWCLINICAL INDICATION: 50 years- old Male; left pleural effusion COMPARISON: CXR 8/30/2020FINDINGS:The tip of a left pigtail catheter remains projecting over the left lowerlung. The previously seen abdominal pigtail catheter is not visualized.The left sided pleural effusion continues to obscure theleft costophrenicangle and is mostly unchanged from prior. The lungs are well expanded apartfrom atelectasis in the left middle/lower lung spaces. No interval rightsided pleural effusion or pneumothorax.The cardiomediastinal silhouette is normal. No acute osseous abnormality. IMPRESSIONStable appearance of left pleural effusion and left lung atelectasis.Preliminary Report Dictated by Resident: Bart Klein reviewed this study and agree.IWeston MD., have reviewed this study and agree with theabove report.[facility] CenterPOTASSIUM [id number] 14:14:00 Test Item Value Reference Range Interpretation Comments K (test code = 3169543987) 4.8 mmol/L 3.5-5 Lab Interpretation (test code = Normal 58614-0) [facility] CenterCBC WITH [id number] 11:30:00 Test Item Value Reference Range Interpretation Comments WBC (test code = See_Comment H [Automated 6690-2) message] The sy stem which generated this result transmitted reference range : 4.20 - 10.70 10*3/?L. The reference range was not used to interpret this result as normal/abnormal . RBC (test code = See_Comment L [Automated 729-8) message] The sy stem which generated this result transmitted reference range : 4.26 - 5.52 10*6/?L. The reference range was not used to interpret this result as normal/abnormal . HGB (test code = 9.0 g/dL 12.2-16.4 L 718-7) HCT (test code = 27.9 % 38.4-49.3 L 4544-3) MCV (test code = 85.1 fL 81.7-95.6 787-2) MCH (test code = 27.4 pg 26.1-32.7 785-6) MCHC (test code = 32.3 g/dL 31.2-35 786-4) RDW-SD (test code = 45.0 fL 38.5-51.6 81118-9) RDW-CV (test code = 14.5 % 12.1-15.4 788-0) PLT (test code = See_Comment HH [Automated 777-3) message] The sy stem which generated this result transmitted reference range : 150 - 328 10*3/ ?L. The reference r meredith was not used to interpret this result as normal/abnormal . MPV (test code = 9.4 fL 9.8-13 L 66088-3) IPF % (test code = 1.6 % 1.2-10.7 Platelet count 7910756191) measured by fluorescence method. NRBC/100 WBC (test See_Comment [Automat ed code = 6740528325) message] The system which generated this result transmitted reference range : 0.0 - 10.0 /100 WBCs. The refer ence range was not u sed to interpret th is result as normal/abnormal . NRBC x10^3 (test code <0.01 See_Comment [Auto mated = 8665554610) message] The s ystem which generated this result transmitted reference range : 10*3/?L. The reference range was not used to interpret this result as normal/abnormal . GRAN MAT (NEUT) % 73.4 % (test code = 770-8) IMM GRAN % (test code 1.80 % = 6560135285) LYMPH % (test code = 12.6 % 736-9) MONO % (test code = 10.8 % 5905-5) EOS % (test code = 1.0 % 713-8) BASO % (test code = 0.4 % 706-2) GRAN MAT x10^3(ANC) 9.57 10*3/uL 1.99-6.95 H (test code = 7213743516) IMM GRAN x10^3 (test 0.24 10*3/uL 0-0.06 H code = 6093080924) LYMPH x10^3 (test code 1.64 10*3/uL 1.09-3.23 = 731-0) MONO x10^3 (test code 1.41 10*3/uL 0.36-1.02 H = 742-7) EOS x10^3 (test code = 0.13 10*3/uL 0.06-0.53 711-2) BASO x10^3 (test code 0.05 10*3/uL 0.01-0.09 = 704-7) Lab Interpretation Abnormal (test code = 59235-0) [facility] METABOLIC PANEL (NA, K, CL, CO2, GLUCOSE, BUN, CREATININE, CA)2020-04-23 10:52:00 Test Item Value Reference Range Interpretation Comments NA (test code = 132 mmol/L 135-145 L 2117835825) K (test code = 5.7 mmol/L 3.5-5 H 7189784622) CL (test code = 97 mmol/L 98-108 L 4346465849) CO2 TOTAL (test code = 26 mmol/L 23-31 4791506034) AGAP (test code = 2-16 7643124188) BUN (test code = 34 mg/dL 7-23 H 0545981095) GLUCOSE (test code = 101 mg/dL 70-110 5785458322) CREATININE (test code = 0.85 mg/dL 0.6-1.25 5595923545) CALCIUM (test code = 9.0 mg/dL 8.6-10.6 4904204271) eGFR Calculation mL/min/1.73m2 (Non-) (test code = 8883551370) eGFR Calculation mL/min/1.73m2 () (test code = 4396751300) GILBERTO (test code = GILBERTO) Association of Glomerular Filtration Rate (GFR) and Staging of Kidney Disease* + --+ --+ ------+| GFR (mL/min/1.73 m2) ?| With Kidney Damage ?| ?Without Kidney Damage+ --------+ --------+ +| ?>90 ?| ?Stage one ?| ? Normal ?+ ---+ ---+ -------+| ?60-89 ?| ?Stage two ?| ? Decreased GFR ? + --+ --+ ------+| ?30-59 ?| ?Stage three ?| ? Stage three ? + --+ --+ ------+| ?15-29 ?| ?Stage four ? | ? Stage four ?+ ---+ ---+ -------+| ?<15 (or dialysis) ? ?| ?Stage five ? | ? Stage five ?+ ---+ ---+ -------+ *Each stage assumes the associated GFR level has been in effect for at least three months. ?Stages 1 to 5, with or without kidney disease, indicate chronic kidney disease. Notes: Determination of stages one and two (with eGFR >59mL/min/1.73 m2) requires estimation of kidney damage for at least three months as defined by structural or functional abnormalities of the kidney, manifested by either:Pathological abnormalities or Markers of kidney damage (including abnormalities in the composition of the blood or urine or abnormalities in imaging tests). Lab Interpretation Abnormal (test code = 32850-7) [facility] CenterMAGNESIUM2020-08-31 10:52:00 Test Item Value Reference Range Interpretation Comments MAGNESIUM (test code = 9393727263) 2.3 mg/dL 1.7-2.4 Lab Interpretation (test code = Normal 69622-3) [facility] CenterXR [facility] 1 [id number] 13:26:55 FINDINGS/IMPRESSION: 1. ?A left pigtail chest tube is again noted with overall unchangedleft-sided pleural effusion compared to most recent x-ray. 2. ?The lungs are clear other than minimal areas of subsegmentalatelectasis of the left mid/lower lung. 3. ?The cardiomediastinal silhouette is normal. 4. ?No acute osseous abnormality. A pigtail catheter is partiallyvisualized superimposed upon the left upper abdomen. Preliminary Report Dictated by Resident: Lincoln Lala ?MD Raúl., have reviewed this study and agree with theabove report.XR CHEST 1 VW HISTORY: left pleural effusion COMPARISON: Chest x-ray on 04/21/2020 [facility], [facility] Results Inft User - 04/22/2020 8:28 AM CDTXR CHEST 1 VWHISTORY: left pleural effusion COMPARISON: Chest x-ray on 04/21/2020IMPRESSIONFINDINGS/IMPRESSION:1. A left pigtail chest tube is again noted with overall unchangedleft-sided pleural effusion compared to most recent x-ray.2. The lungs are clear other than minimal areas of subsegmentalatelectasis of the left mid/lower lung.3. The cardiomediastinal silhouette is normal.4. No acute osseous abnormality. A pigtail catheter is partiallyvisualized superimposed upon the left upper abdomen.Preliminary Report Dictated by Resident: Lincoln Palomino MD., have reviewed this study and agree with theabove report.[facility] CenterXR [facility] 1 [facility]W 2020-04-22 13:24:27FINDINGS/IMPRESSION: 1. ?A left pigtail chest tube is again noted with mild interval decrease inthe size of the left-sided pleural effusion. 2. ?The lungs are clear other than minimal subsegmental atelectasis of theleft lower lung. 3. ?The cardiomediastinal silhouette is normal. 4. ?No acute osseous abnormality. Preliminary Report Dictated by Resident: Lincoln Lala MD., have reviewed this study and agree with theabove report.XR CHEST 1 VW HISTORY: chest tube removed siting up in bed COMPARISON: Chest x-ray on 04/20/2020 [facility], [facility]iant Results Inft User - 04/22/2020 8:25 AM CDTXRCHEST 1 VWHISTORY: chest tube removed siting up in bedCOMPARISON: Chest x-ray on 04/20/2020IMPRESSIONFINDINGS/IMPRESSION:1. A left pigtail chest tube is again noted with mild interval decrease inthe size of the left-sided pleural effusion.2. The lungs are clear other than minimal subsegmental atelectasis of theleft lower lung.3. The cardiomediastinal silhouette is normal.4. No acute osseous abnormality.Preliminary Report Dictated by Resident: Lincoln Palomino MD., have reviewed this study and agree with theabove report. [facility] CenterBAS[facility] METABOLIC PANEL (NA, K, CL, CO2, GLUCOSE, BUN, CREATININE, CA)2020-04-22 11:49:00 Test Item Value Reference Range Interpretation Comments NA (test code = 132 mmol/L 135-145 L 7858445805) K (test code = 4.7 mmol/L 3.5-5 9308576744) CL (test code = 97 mmol/L 98-108 L 5619219384) CO2 TOTAL (test code = 30 mmol/L 23-31 0887246604) AGAP (test code = 2-16 2480681107) BUN (test code = 28 mg/dL 7-23 H 9022731100) GLUCOSE (test code = 117 mg/dL 70-110 H 2509357348) CREATININE (test code = 0.88 mg/dL 0.6-1.25 1398016928) CALCIUM (test code = 8.8 mg/dL 8.6-10.6 8794184777) eGFR Calculation mL/min/1.73m2 (Non-) (test code = 9203143052) eGFR Calculation mL/min/1.73m2 () (test code = 2498246731) GILBERTO (test code = GILBERTO) Association of Glomerular Filtration Rate (GFR) and Staging of Kidney Disease* + --+ --+ ------+| GFR (mL/min/1.73 m2) ?| With Kidney Damage ?| ?Without Kidney Damage+ --------+ --------+ +| ?>90 ?| ?Stage one ?| ? Normal ?+ ---+ ---+ -------+| ?60-89 ?| ?Stage two ?| ? Decreased GFR ? + --+ --+ ------+| ?30-59 ?| ?Stage three ?| ? Stage three ? + --+ --+ ------+| ?15-29 ?| ?Stage four ? | ? Stage four ?+ ---+ ---+ -------+| ?<15 (or dialysis) ? ?| ?Stage five ? | ? Stage five ?+ ---+ ---+ -------+ *Each stage assumes the associated GFR level has been in effect for at least three months. ?Stages 1 to 5, with or without kidney disease, indicate chronic kidney disease. Notes: Determination of stages one and two (with eGFR >59mL/min/1.73 m2) requires estimation of kidney damage for at least three months as defined by structural or functional abnormalities of the kidney, manifested by either:Pathological abnormalities or Markers of kidney damage (including abnormalities in the composition of the blood or urine or abnormalities in imaging tests). Lab Interpretation Abnormal (test code = 97535-4) [facility] CenterMAGNESIUM2020-08-30 11:49:00 Test Item Value Reference Range Interpretation Comments MAGNESIUM (test code = 4712545723) 2.4 mg/dL 1.7-2.4 Lab Interpretation (test code = Normal 30419-4) [facility] WITH [id number] 11:23:00 Test Item Value Reference Range Interpretation Comments WBC (test code = See_Comment H [Automated 6690-2) message] The sy stem which generated this result transmitted reference range : 4.20 - 10.70 10*3/?L. The reference range was not used to interpret this result as normal/abnormal . RBC (test code = See_Comment L [Automated 789-8) message] The sy stem which generated this result transmitted reference range : 4.26 - 5.52 10*6/?L. The reference range was not used to interpret this result as normal/abnormal . HGB (test code = 8.7 g/dL 12.2-16.4 L 718-7) HCT (test code = 26.9 % 38.4-49.3 L 4544-3) MCV (test code = 85.7 fL 81.7-95.6 787-2) MCH (test code = 27.7 pg 26.1-32.7 785-6) MCHC (test code = 32.3 g/dL 31.2-35 786-4) RDW-SD (test code = 44.9 fL 38.5-51.6 02829-2) RDW-CV (test code = 14.4 % 12.1-15.4 788-0) PLT (test code = See_Comment HH [Automated 777-3) message] The sy stem which generated this result transmitted reference range : 150 - 328 10*3/ ?L. The reference r meredith was not used to interpret this result as normal/abnormal . MPV (test code = 9.5 fL 9.8-13 L 39263-4) NRBC/100 WBC (test See_Comment [Automat ed code = 4082038234) message] The system which generated this result transmitted reference range : 0.0 - 10.0 /100 WBCs. The refer ence range was not u sed to interpret th is result as normal/abnormal . NRBC x10^3 (test code <0.01 See_Comment [Auto mated = 1680768996) message] The s ystem which generated this result transmitted reference range : 10*3/?L. The reference range was not used to interpret this result as normal/abnormal . GRAN MAT (NEUT) % 80.3 % (test code = 770-8) IMM GRAN % (test code 1.50 % = 7302475680) LYMPH % (test code = 7.2 % 736-9) MONO % (test code = 9.7 % 5905-5) EOS % (test code = 0.7 % 713-8) BASO % (test code = 0.6 % 706-2) GRAN MAT x10^3(ANC) 9.99 10*3/uL 1.99-6.95 H (test code = 3250065184) IMM GRAN x10^3 (test 0.19 10*3/uL 0-0.06 H code = 5757616212) LYMPH x10^3 (test code 0.90 10*3/uL 1.09-3.23 L = 731-0) MONO x10^3 (test code 1.21 10*3/uL 0.36-1.02 H = 742-7) EOS x10^3 (test code = 0.09 10*3/uL 0.06-0.53 711-2) BASO x10^3 (test code 0.07 10*3/uL 0.01-0.09 = 704-7) Lab Interpretation Abnormal (test code = 32208-7) [facility] WITH [id number] 14:15:00 Test Item Value Reference Range Interpretation Comments WBC (test code = See_Comment H [Automated 6690-2) message] The sy stem which generated this result transmitted reference range : 4.20 - 10.70 10*3/?L. The reference range was not used to interpret this result as normal/abnormal . RBC (test code = See_Comment L [Automated 789-8) message] The sy stem which generated this result transmitted reference range : 4.26 - 5.52 10*6/?L. The reference range was not used to interpret this result as normal/abnormal . HGB (test code = 8.4 g/dL 12.2-16.4 L 718-7) HCT (test code = 25.2 % 38.4-49.3 L 4544-3) MCV (test code = 85.4 fL 81.7-95.6 787-2) MCH (test code = 28.5 pg 26.1-32.7 785-6) MCHC (test code = 33.3 g/dL 31.2-35 786-4) RDW-SD (test code = 44.4 fL 38.5-51.6 18362-6) RDW-CV (test code = 14.2 % 12.1-15.4 788-0) PLT (test code = See_Comment HH [Automated 777-3) message] The sy stem which generated this result transmitted reference range : 150 - 328 10*3/ ?L. The reference r meredith was not used to interpret this result as normal/abnormal . MPV (test code = 9.0 fL 9.8-13 L 70167-9) NRBC/100 WBC (test See_Comment [Automat ed code = 9974807696) message] The system which generated this result transmitted reference range : 0.0 - 10.0 /100 WBCs. The refer ence range was not u sed to interpret th is result as normal/abnormal . NRBC x10^3 (test code <0.01 See_Comment [Auto mated = 3727134401) message] The s ystem which generated this result transmitted reference range : 10*3/?L. The reference range was not used to interpret this result as normal/abnormal . GRAN MAT (NEUT) % 76.4 % (test code = 770-8) IMM GRAN % (test code 1.30 % = 5623742763) LYMPH % (test code = 10.9 % 736-9) MONO % (test code = 9.6 % 5905-5) EOS % (test code = 1.1 % 713-8) BASO % (test code = 0.7 % 706-2) GRAN MAT x10^3(ANC) 9.41 10*3/uL 1.99-6.95 H (test code = 5617927193) IMM GRAN x10^3 (test 0.16 10*3/uL 0-0.06 H code = 2775247158) LYMPH x10^3 (test code 1.34 10*3/uL 1.09-3.23 = 731-0) MONO x10^3 (test code 1.18 10*3/uL 0.36-1.02 H = 742-7) EOS x10^3 (test code = 0.13 10*3/uL 0.06-0.53 711-2) BASO x10^3 (test code 0.08 10*3/uL 0.01-0.09 = 704-7) Lab Interpretation Abnormal (test code = 59134-6) [facility] METABOLIC PANEL (NA, K, CL, CO2, GLUCOSE, BUN, CREATININE, CA)2020-04-21 13:47:00 Test Item Value Reference Range Interpretation Comments NA (test code = 130 mmol/L 135-145 L 6807407676) K (test code = 4.8 mmol/L 3.5-5 7123673929) CL (test code = 95 mmol/L 98-108 L 9889524093) CO2 TOTAL (test code = 29 mmol/L 23-31 5347277168) AGAP (test code = 2-16 4525892029) BUN (test code = 25 mg/dL 7-23 H 3480186494) GLUCOSE (test code = 98 mg/dL 70-110 1797821571) CREATININE (test code = 0.78 mg/dL 0.6-1.25 7542314415) CALCIUM (test code = 8.2 mg/dL 8.6-10.6 L 1739870236) eGFR Calculation mL/min/1.73m2 (Non-) (test code = 2171941384) eGFR Calculation mL/min/1.73m2 () (test code = 4631311084) GILBERTO (test code = GILBERTO) Association of Glomerular Filtration Rate (GFR) and Staging of Kidney Disease* + --+ --+ ------+| GFR (mL/min/1.73 m2) ?| With Kidney Damage ?| ?Without Kidney Damage+ --------+ --------+ +| ?>90 ?| ?Stage one ?| ? Normal ?+ ---+ ---+ -------+| ?60-89 ?| ?Stage two ?| ? Decreased GFR ? + --+ --+ ------+| ?30-59 ?| ?Stage three ?| ? Stage three ? + --+ --+ ------+| ?15-29 ?| ?Stage four ? | ? Stage four ?+ ---+ ---+ -------+| ?<15 (or dialysis) ? ?| ?Stage five ? | ? Stage five ?+ ---+ ---+ -------+ *Each stage assumes the associated GFR level has been in effect for at least three months. ?Stages 1 to 5, with or without kidney disease, indicate chronic kidney disease. Notes: Determination of stages one and two (with eGFR >59mL/min/1.73 m2) requires estimation of kidney damage for at least three months as defined by structural or functional abnormalities of the kidney, manifested by either:Pathological abnormalities or Markers of kidney damage (including abnormalities in the composition of the blood or urine or abnormalities in imaging tests). Lab Interpretation Abnormal (test code = 81082-8) [facility]2020-08-29 13:47:00 Test Item Value Reference Range Interpretation Comments MAGNESIUM (test code = 6044557826) 2.1 mg/dL 1.7-2.4 Lab Interpretation (test code = Normal 85906-5) [facility]PRE[facility]2020-08-28 21:30:00 Test Item Value Reference Range Interpretation Comments PALB (test code = 62582-2) 9.3 mg/dL 18-45 L Lab Interpretation (test code = Abnormal 41038-1) [facility] CenterBody Fluid [id number] 14:32:00 Test Item Value Reference Range Interpretation Comments BODY FLUID CULT No organisms isolated (test code = 611-4) Gram stain (test Occasional (Rare) code = 664-3) Polymorphonuclear leukocytes [facility]XR [facility] 1 [id number] 13:09:21EXAM: XR CHEST 1 VW HISTORY: ct removed Sitting up in bed COMPARISON: None. FINDINGS: The upper mostof the 2 chest tubes on the left was removed, but the lowerone remains in place. A large volume of pleural effusion obscures the leftcostophrenic angle, the left hemidiaphragm and the cardiac apex. Fluffydensities in the left mid lung are probably due to atelectasis. The rightlung is well-expanded andclear. The heart and great vessels are normal. ? [facility], [facility]iant Results Inft User - 04/20/2020 8:10 AM CDTEXAM: XR CHEST 1 VWHISTORY: ct removed Sitting up in bedCOMPARISON: None.FINDINGS:The upper mostof the 2 chest tubes on the left was removed, but the lowerone remains in place. A large volume of pleural effusion obscures the leftcostophrenic angle, the left hemidiaphragm and the cardiac apex. Fluffydensities in the left mid lung are probably due to atelectasis. The rightlung is well-expanded andclear. The heart and great vessels are normal. [facility] METABOLIC PANEL (NA, K, CL, CO2, GLUCOSE, BUN, CREATININE, CA)2020-04-20 11:00:00 Test Item Value Reference Range Interpretation Comments NA (test code = 132 mmol/L 135-145 L 8356824926) K (test code = 5.2 mmol/L 3.5-5 H 6342725299) CL (test code = 100 mmol/L 98-108 5183304855) CO2 TOTAL (test code = 24 mmol/L 23-31 3689829210) AGAP (test code = 2-16 7614329266) BUN (test code = 19 mg/dL 7-23 3552595949) GLUCOSE (test code = 121 mg/dL 70-110 H 5052773202) CREATININE (test code = 0.77 mg/dL 0.6-1.25 2627014972) CALCIUM (test code = 8.2 mg/dL 8.6-10.6 L 1519576149) eGFR Calculation mL/min/1.73m2 (Non-) (test code = 8553246328) eGFR Calculation mL/min/1.73m2 () (test code = 8973037486) GILBERTO (test code = GILBERTO) Association of Glomerular Filtration Rate (GFR) and Staging of Kidney Disease* + --+ --+ ------+| GFR (mL/min/1.73 m2) ?| With Kidney Damage ?| ?Without Kidney Damage+ --------+ --------+ +| ?>90 ?| ?Stage one ?| ? Normal ?+ ---+ ---+ -------+| ?60-89 ?| ?Stage two ?| ? Decreased GFR ? + --+ --+ ------+| ?30-59 ?| ?Stage three ?| ? Stage three ? + --+ --+ ------+| ?15-29 ?| ?Stage four ? | ? Stage four ?+ ---+ ---+ -------+| ?<15 (or dialysis) ? ?| ?Stage five ? | ? Stage five ?+ ---+ ---+ -------+ *Each stage assumes the associated GFR level has been in effect for at least three months. ?Stages 1 to 5, with or without kidney disease, indicate chronic kidney disease. Notes: Determination of stages one and two (with eGFR >59mL/min/1.73 m2) requires estimation of kidney damage for at least three months as defined by structural or functional abnormalities of the kidney, manifested by either:Pathological abnormalities or Markers of kidney damage (including abnormalities in the composition of the blood or urine or abnormalities in imaging tests). Lab Interpretation Abnormal (test code = 31716-8) [facility] 11:00:00 Test Item Value Reference Range Interpretation Comments MAGNESIUM (test code = 1259673404) 2.1 mg/dL 1.7-2.4 Lab Interpretation (test code = Normal 54642-9) [facility]2020-[facility]28 11:00:00 Test Item Value Reference Range Interpretation Comments PHOSPHORUS (test code = 1141641973) 3.9 mg/dL 2.5-5 Lab Interpretation (test code = Normal 57538-0) [facility] WITH [id number] 10:23:00 Test Item Value Reference Range Interpretation Comments WBC (test code = See_Comment H [Automated 5190-2) message] The system which generated this result transmit dain reference range : 4.20 - 10.70 10*3/?L. The reference range was not used to interpret this result as normal/abnormal . RBC (test code = See_Comment L [Automated 669-8) message] The system which generated this result transmit dain reference range : 4.26 - 5.52 10*6/?L. The reference range was not used to interpret this result as normal/abnormal . HGB (test code = 8.8 g/dL 12.2-16.4 L 718-7) HCT (test code = 27.5 % 38.4-49.3 L 4544-3) MCV (test code = 87.0 fL 81.7-95.6 787-2) MCH (test code = 27.8 pg 26.1-32.7 785-6) MCHC (test code = 32.0 g/dL 31.2-35 786-4) RDW-SD (test code = 45.2 fL 38.5-51.6 90387-9) RDW-CV (test code = 14.2 % 12.1-15.4 788-0) PLT (test code = See_Comment HH [Automated 777-3) message] The system which generated this result transmit dain reference range : 150 - 328 10*3/ ?L. The reference range was not u sed to interpret th is result as normal/abnormal . MPV (test code = 9.3 fL 9.8-13 L 41581-1) NRBC/100 WBC (test See_Comment [Automat ed code = 0440158840) message] The system which generated this result transmit dain reference range : 0.0 - 10.0 /100 WBCs. The reference range was not used to interpret this result as normal/abnormal . NRBC x10^3 (test code <0.01 See_Comment [Auto mated = 1523971678) message] The system which generated this result transmit dain reference range : 10*3/?L. The reference range was not used to interpret this result as normal/abnormal . GRAN MAT (NEUT) % 79.8 % (test code = 770-8) IMM GRAN % (test code 1.50 % = 3366127657) LYMPH % (test code = 9.8 % 736-9) MONO % (test code = 7.5 % 5905-5) EOS % (test code = 0.6 % 713-8) BASO % (test code = 0.8 % 706-2) GRAN MAT x10^3(ANC) 10.64 10*3/uL 1.99-6.95 H (test code = 9661018997) IMM GRAN x10^3 (test 0.20 10*3/uL 0-0.06 H code = 7932264481) LYMPH x10^3 (test code 1.31 10*3/uL 1.09-3.23 = 731-0) MONO x10^3 (test code 1.00 10*3/uL 0.36-1.02 = 742-7) EOS x10^3 (test code = 0.08 10*3/uL 0.06-0.53 711-2) BASO x10^3 (test code 0.10 10*3/uL 0.01-0.09 H = 704-7) Lab Interpretation Abnormal (test code = 84857-9) [facility] 1 [id number] 12:25:53 No residual pleural effusion noted. Preliminary Report Dictated by Resident: Lincoln Roy MD., have reviewed this study and agree with theabove report.PROCEDURE: XR CHEST 1 VW CLINICAL INDICATION: left pleural effusion COMPARISON: Chest x-ray dated 04/18/2020. FINDINGS: The left lower chest and upper quadrant chest tubes are unchanged. Interval improvement in the previously noted left midlung opacity.Persistent opacity of the left bone. Otherwise, the lungs are clear. Nopleural effusion or pneumothorax is seen. The heart is unchanged. No acute bony abnormality. [facility], Radiant Results Inft User - 04/19/2020 7:27 AM CDTPROCEDURE: XR CHEST 1 VWCLINICAL INDICATION: left pleural effusion COMPARISON: Chest x-ray dated 04/18/2020.FINDINGS:The left lower chest and upper quadrant chest tubes are unchanged.Interval improvement in the previously noted left midlung opacity.Persistent opacity of the left bone. Otherwise, the lungs are clear. Nopleural effusion or pneumothorax is seen. The heart is unchanged.No acute bony abnormality.IMPRESSIONNo residual pleural e ffusion noted.Preliminary Report Dictated by Resident: Lincoln Gee MD., have reviewed this study and agree with theabove report.[facility] Center[facility]OL[facility] PANEL (NA, K, CL, CO2, GLUCOSE, BUN, CREATININE, CA)2020-04-19 11:09:00 Test Item Value Reference Range Interpretation Comments NA (test code = 133 mmol/L 135-145 L 7285411285) K (test code = 4.2 mmol/L 3.5-5 3485549754) CL (test code = 101 mmol/L 98-108 2796206736) CO2 TOTAL (test code = 26 mmol/L 23-31 2502461238) AGAP (test code = 2-16 3637975366) BUN (test code = 15 mg/dL 7-23 3410963971) GLUCOSE (test code = 113 mg/dL 70-110 H 3010243023) CREATININE (test code = 0.73 mg/dL 0.6-1.25 0325741386) CALCIUM (test code = 8.1 mg/dL 8.6-10.6 L 4631265508) eGFR Calculation mL/min/1.73m2 (Non-) (test code = 8118877197) eGFR Calculation mL/min/1.73m2 () (test code = 0877836315) GILBERTO (test code = GILBERTO) Association of Glomerular Filtration Rate (GFR) and Staging of Kidney Disease* + --+ --+ ------+| GFR (mL/min/1.73 m2) ?| With Kidney Damage ?| ?Without Kidney Damage+ --------+ --------+ +| ?>90 ?| ?Stage one ?| ? Normal ?+ ---+ ---+ -------+| ?60-89 ?| ?Stage two ?| ? Decreased GFR ? + --+ --+ ------+| ?30-59 ?| ?Stage three ?| ? Stage three ? + --+ --+ ------+| ?15-29 ?| ?Stage four ? | ? Stage four ?+ ---+ ---+ -------+| ?<15 (or dialysis) ? ?| ?Stage five ? | ? Stage five ?+ ---+ ---+ -------+ *Each stage assumes the associated GFR level has been in effect for at least three months. ?Stages 1 to 5, with or without kidney disease, indicate chronic kidney disease. Notes: Determination of stages one and two (with eGFR >59mL/min/1.73 m2) requires estimation of kidney damage for at least three months as defined by structural or functional abnormalities of the kidney, manifested by either:Pathological abnormalities or Markers of kidney damage (including abnormalities in the composition of the blood or urine or abnormalities in imaging tests). Lab Interpretation Abnormal (test code = 06148-0) [facility] Test Item Value Reference Range Interpretation Comments MAGNESIUM (test code = 7298661488) 2.1 mg/dL 1.7-2.4 Lab Interpretation (test code = Normal 05159-8) [facility]2020-08-27 11:09:00 Test Item Value Reference Range Interpretation Comments PHOSPHORUS (test code = 0370766836) 3.9 mg/dL 2.5-5 Lab Interpretation (test code = Normal 34990-8) [facility] WITH [id number] 10:59:00 Test Item Value Reference Range Interpretation Comments WBC (test code = See_Comment H [Automated 6690-2) message] The sy stem which generated this result transmitted reference range : 4.20 - 10.70 10*3/?L. The reference range was not used to interpret this result as normal/abnormal . RBC (test code = See_Comment L [Automated 789-8) message] The sy stem which generated this result transmitted reference range : 4.26 - 5.52 10*6/?L. The reference range was not used to interpret this result as normal/abnormal . HGB (test code = 8.5 g/dL 12.2-16.4 L 718-7) HCT (test code = 26.6 % 38.4-49.3 L 4544-3) MCV (test code = 87.8 fL 81.7-95.6 787-2) MCH (test code = 28.1 pg 26.1-32.7 785-6) MCHC (test code = 32.0 g/dL 31.2-35 786-4) RDW-SD (test code = 46.0 fL 38.5-51.6 64983-6) RDW-CV (test code = 14.2 % 12.1-15.4 788-0) PLT (test code = See_Comment HH [Automated 777-3) message] The sy stem which generated this result transmitted reference range : 150 - 328 10*3/ ?L. The reference r meredith was not used to interpret this result as normal/abnormal . MPV (test code = 9.3 fL 9.8-13 L 68145-2) NRBC/100 WBC (test See_Comment [Automat ed code = 8739941384) message] The system which generated this result transmitted reference range : 0.0 - 10.0 /100 WBCs. The refer ence range was not u sed to interpret th is result as normal/abnormal . NRBC x10^3 (test code <0.01 See_Comment [Auto mated = 2789075958) message] The s ystem which generated this result transmitted reference range : 10*3/?L. The reference range was not used to interpret this result as normal/abnormal . GRAN MAT (NEUT) % 79.2 % (test code = 770-8) IMM GRAN % (test code 1.00 % = 8650330875) LYMPH % (test code = 11.4 % 736-9) MONO % (test code = 6.7 % 5905-5) EOS % (test code = 1.0 % 713-8) BASO % (test code = 0.7 % 706-2) GRAN MAT x10^3(ANC) 9.49 10*3/uL 1.99-6.95 H (test code = 9923928842) IMM GRAN x10^3 (test 0.12 10*3/uL 0-0.06 H code = 7197207264) LYMPH x10^3 (test code 1.36 10*3/uL 1.09-3.23 = 731-0) MONO x10^3 (test code 0.80 10*3/uL 0.36-1.02 = 742-7) EOS x10^3 (test code = 0.12 10*3/uL 0.06-0.53 711-2) BASO x10^3 (test code 0.08 10*3/uL 0.01-0.09 = 704-7) Lab Interpretation Abnormal (test code = 37172-9) [facility] CenterBL[facility] C[facility] [id number] 22:29:00 Test Item Value Reference Range Interpretation Comments Blood Culture-Aerobic No organisms No growth Previo us (test code = 88020-7) isolated prelim inary verified result was Culture In Progress on 04/13/2020 at 06 06 CDT Blood Culture positive. No growth AA Previous Culture-Anaerobic See Blood Culture preli minary (test code = 30199-9) Workup for verifi ed result additional was Culture In information. Progress on 04/12/2020 at 18 01 CDT Lab Interpretation Abnormal (test code = 50400-9) [facility] CenterIR [facility]RAIN[facility] WITH TUBE WITH IMAGING 2020-04-18 15:38:00Successful image guided 10 [place] pigtail chest tube insertioninto the left pleural space. PLAN: Post procedure chest radiograph will be obtained.EXAMINATION: IMAGE GUIDED LEFT CHEST TUBE INSERTION HIST ORY/INDICATION: ?left pleural effusion ATTENDING PRESENCE: ?As the attending radiologist, I performed the entireprocedure. ? SEDATION: Moderate sedation was administered under the attendingphysician's direction and continuous monitoring by a trained nursespecialist who was independent from those actually performing theprocedure. Total monitored sedation time is documented in Epic. TECHNIQUE: The risks, benefits and alternatives were discussed and informedconsent was obtained. Prior to beginning the procedure, Dexter Protocolwas performed to confirm the patient's identity and the planned procedure.Maximum sterile barriers including cap, mask, hand hygiene, sterile gloves,sterile gown, large sterile drape and cutaneous antisepsis were used. The patient's left chest was examined with ultrasound and a suitablecatheter insertion site was identified. The skin overlying this area wasanesthetized with 1 percent lidocaine. Using real-time ultrasound guidancea 19-gauge coaxial needle was advanced intothe pleural space. ?A wire wasinserted through the catheter and coiled in the pleural space. The tractwas dilated to 10 [place], and a 10 [place] pigtail chest tube was insertedand coiled within the pleural space. The catheter was sutured to the skin,and a sterile dressing was applied. The catheter was connected toPleur-evac gravity drainage. Serous yellow fluid was drained during the procedure. Samples were sent for laboratory analysis. ESTIMATED BLOOD LOSS: Minimal. CONDITION: Stable. DISCHARGED TO:Recovery and then returned to inpatient unit. FINDINGS: Ultrasound demonstrated a large amount of pleural fluid. [facility], Radiant Results Inft User - 04/18/2020 10:39 AM CDTEXAMINATION: IMAGE GUIDED LEFT CHEST TUBE INSERTIONHISTORY/INDICATION: left pleural effusion ATTENDING PRESENCE: As the attending radiologist, I performed the entireprocedure. SEDATION: Moderate sedation was administered under the att endingphysician's direction and continuous monitoring by a trained nursespecialist who was independent from those actually performing theprocedure. Total monitored sedation time is documented in Epic.TECHNIQUE: The risks, benefits and alternatives were discussed and informedconsent was obtained. Prior to beginning the procedure, Dexter Protocolwas performed to confirm the patient's identity and the planned procedure.Maximum sterile barriers including cap, mask, hand hygiene, sterile gloves,sterile gown, large sterile drape and cutaneous antisepsis were used. The patient's left chest was examinedwith ultrasound and a suitablecatheter insertion site was identified. The skin overlying this area wasanesthetized with 1 percent lidocaine. Using real-time ultrasound guidancea 19-gauge coaxial needlewas advanced into the pleural space. A wire wasinserted through the catheter and coiled in the pleural space. The tractwas dilated to 10 [place], and a 10 [place] pigtail chest tube was insertedand coiled within the pleural space. The catheter was sutured to the skin,and a sterile dressing was applied. The catheter was connected toPleur-evac gravity drainage. Serous yellow fluid was drained during the procedure. Samples were sent for laboratory analysis.ESTIMATED BLOOD LOSS: Minimal. CONDITION: Stable.DISCHARGED TO: Recovery and then returned to inpatient unit. FINDINGS: Ultrasound demonstrated a large amount of pleural fluid. IMPRESSIONSuccessful image guided 10 [place] pigtail chest tube insertioninto the left pleural space. PLAN: Post procedure chest radiograph will be obtained.[facility]XR [facility] 1 [id number] 13:37:38 Hazy left midlung opacity, may represent loculated pleural effusion.Further evaluation with CT of the chest is recommended. Preliminary Report Dictated by Resident: Hayden Bundy I, Hoang Norris MD., have reviewed this study and agree with the abovereport.PROCEDURE: XR CHEST 1 VW CLINICAL INDICATION: left pleural effusion COMPARISON: Chest x-ray dated 04/17/2020. FINDINGS: Hazy left midlung opacity is seen, may represent loculated effusion. Nopneumothorax. Unchanged left basal chest tubes. The heart is normal insize. Presumed pleural effusion improved since 04/17. Continued low lungvolume on the left. No acute bony abnormality. [facility], Radiant Results Inft User - 04/18/2020 8:40 AM CDTPROCEDURE: XR CHEST 1 VWCLINICAL INDICATION: left pleural effusion COMPARISON: Chest x-ray dated 04/17/2020.FINDINGS:Hazy left midlung opacity is seen, may represent loculated effusion. Nopneumothorax. Unchanged left basal chest tubes. The heart is normal insize. Presumed pleural effusion improved since 04/17. Continued low lungvolume on the left.No acute bony abnormality.IMPRESSIONHazy left midlung opacity, may represent loculated pleural effusion.Further evaluation with CT of the chest is recommended.Preliminary Report Dictated by Resident: Hayden Galindo, Hoang Norris MD., have reviewed this study and agree with the abovereport.[facility] (NA, K, CL, CO2, GLUCOSE, BUN, CREATININE, CA)2020-04-18 11:18:00 Test Item Value Reference Range Interpretation Comments NA (test code = 134 mmol/L 135-145 L 6318944364) K (test code = 4.4 mmol/L 3.5-5 6679287733) CL (test code = 102 mmol/L 98-108 5155899883) CO2 TOTAL (test code = 26 mmol/L 23-31 6932320089) AGAP (test code = 2-16 2857614123) BUN (test code = 12 mg/dL 7-23 0178385435) GLUCOSE (test code = 106 mg/dL 70-110 8677147328) CREATININE (test code = 0.74 mg/dL 0.6-1.25 4586346295) CALCIUM (test code = 7.5 mg/dL 8.6-10.6 L 4149450605) eGFR Calculation mL/min/1.73m2 (Non-) (test code = 6669650151) eGFR Calculation mL/min/1.73m2 () (test code = 6374440384) GILBERTO (test code = GILBERTO) Association of Glomerular Filtration Rate (GFR) and Staging of Kidney Disease* + --+ --+ ------+| GFR (mL/min/1.73 m2) ?| With Kidney Damage ?| ?Without Kidney Damage+ --------+ --------+ +| ?>90 ?| ?Stage one ?| ? Normal ?+ ---+ ---+ -------+| ?60-89 ?| ?Stage two ?| ? Decreased GFR ? + --+ --+ ------+| ?30-59 ?| ?Stage three ?| ? Stage three ? + --+ --+ ------+| ?15-29 ?| ?Stage four ? | ? Stage four ?+ ---+ ---+ -------+| ?<15 (or dialysis) ? ?| ?Stage five ? | ? Stage five ?+ ---+ ---+ -------+ *Each stage assumes the associated GFR level has been in effect for at least three months. ?Stages 1 to 5, with or without kidney disease, indicate chronic kidney disease. Notes: Determination of stages one and two (with eGFR >59mL/min/1.73 m2) requires estimation of kidney damage for at least three months as defined by structural or functional abnormalities of the kidney, manifested by either:Pathological abnormalities or Markers of kidney damage (including abnormalities in the composition of the blood or urine or abnormalities in imaging tests). Lab Interpretation Abnormal (test code = 68972-9) [facility]MAG[facility]UM2020-08-26 11:18:00 Test Item Value Reference Range Interpretation Comments MAGNESIUM (test code = 1926397872) 2.0 mg/dL 1.7-2.4 Lab Interpretation (test code = Normal 85876-1) [facility]PH[facility]2020-08-26 11:18:00 Test Item Value Reference Range Interpretation Comments PHOSPHORUS (test code = 0645181615) 3.4 mg/dL 2.5-5 Lab Interpretation (test code = Normal 18975-8) [facility]CB WITH [id number] 10:46:00 Test Item Value Reference Range Interpretation Comments WBC (test code = See_Comment H [Automated 1390-2) message] The system which generated this result transmit dain reference range : 4.20 - 10.70 10*3/?L. The reference range was not used to interpret this result as normal/abnormal . RBC (test code = See_Comment L [Automated 749-8) message] The system which generated this result transmit dain reference range : 4.26 - 5.52 10*6/?L. The reference range was not used to interpret this result as normal/abnormal . HGB (test code = 8.2 g/dL 12.2-16.4 L 718-7) HCT (test code = 25.5 % 38.4-49.3 L 4544-3) MCV (test code = 88.2 fL 81.7-95.6 787-2) MCH (test code = 28.4 pg 26.1-32.7 785-6) MCHC (test code = 32.2 g/dL 31.2-35 786-4) RDW-SD (test code = 46.5 fL 38.5-51.6 16694-9) RDW-CV (test code = 14.5 % 12.1-15.4 788-0) PLT (test code = See_Comment HH [Automated 777-3) message] The system which generated this result transmit dain reference range : 150 - 328 10*3/ ?L. The reference range was not u sed to interpret th is result as normal/abnormal . MPV (test code = 9.6 fL 9.8-13 L 37197-9) NRBC/100 WBC (test See_Comment [Automat ed code = 0102079951) message] The system which generated this result transmit dain reference range : 0.0 - 10.0 /100 WBCs. The reference range was not used to interpret this result as normal/abnormal . NRBC x10^3 (test code <0.01 See_Comment [Auto mated = 3260818121) message] The system which generated this result transmit dain reference range : 10*3/?L. The reference range was not used to interpret this result as normal/abnormal . GRAN MAT (NEUT) % 82.1 % (test code = 770-8) IMM GRAN % (test code 0.90 % = 0424823015) LYMPH % (test code = 9.2 % 736-9) MONO % (test code = 6.6 % 5905-5) EOS % (test code = 0.7 % 713-8) BASO % (test code = 0.5 % 706-2) GRAN MAT x10^3(ANC) 10.02 10*3/uL 1.99-6.95 H (test code = 1510466213) IMM GRAN x10^3 (test 0.11 10*3/uL 0-0.06 H code = 7486697224) LYMPH x10^3 (test code 1.12 10*3/uL 1.09-3.23 = 731-0) MONO x10^3 (test code 0.80 10*3/uL 0.36-1.02 = 742-7) EOS x10^3 (test code = 0.08 10*3/uL 0.06-0.53 711-2) BASO x10^3 (test code 0.06 10*3/uL 0.01-0.09 = 704-7) Lab Interpretation Abnormal (test code = 07762-3) [facility] CenterBL[facility] [id number] 20:01:00 Test Item Value Reference Range Interpretation Comments Blood Culture-Aerobic No organisms No growth Previo us (test code = 50501-4) isolated prelim inary verified result was Culture In Progress on 04/12/2020 at 18 01 CDTPrevious preliminary verified result was No growth a t 24 hours on 04/13/2020 at 15 01 CDTPrevious preliminary verified result was No growth a t 48 hours on 04/14/2020 at 15 01 CDTPrevious preliminary verified result was No growth a t 72 hours on 04/15/2020 at 15 01 CDT Blood No organisms No growth Previous Culture-Anaerobic isolated preliminar y (test code = 81290-8) verifi ed result was Culture In Progress on 04/12/2020 at 18 01 CDTPrevious preliminary verified result was No growth a t 24 hours on 04/13/2020 at 15 01 CDTPrevious preliminary verified result was No growth a t 48 hours on 04/14/2020 at 15 01 CDTPrevious preliminary verified result was No growth a t 72 hours on 04/15/2020 at 15 01 CDT Lab Interpretation Normal (test code = 66776-0) [facility] 1 [id number] 19:38:57 FINDINGS/IMPRESSION: There are 2 left-sided chest tube seen again ending at the left lung base. Compared to the prior chest x-ray, there is decreasing opacificationoverlying the left hemithorax compatible with decreasing pleural effusion.Persistent streaky opacities at the left lung base are likely related toatelectasis, less likely infectious infiltrate. There is a tiny left apical pneumothorax measuring approximately 0.8 cmfrom the apex which may have also been present also on previous chestx-raysfrom 04/09/2020 and 04/16/2020. The right lung is clear. Thecardiomediastinal silhouette is not enlarged. Finding regarding tiny apical left pneumothorax discussed with Dr. Riggins at 2:35 PM on 04/17/[address] Mathieu Chapa. EXAM: XR CHEST 1 VW HISTORY: ?50 yearsyear-old Male left pleural effusion COMPARISON: Chest x-ray 04/17/2020, 04/16/2020, 04/09/2020 [facility], Radiant Results Inft User - 04/17/2020 2:40 PM CDTEXAM: XR CHEST 1 VWHISTORY: 50 yearsyear-old Male left pleural effusion COMPARISON: Chest x-ray 04/17/2020, 04/16/2020, 04/09/2020IMPRESSIONFINDINGS/IMPRESSION:There are 2 left- sided chest tube seen again ending at the left lung base.Compared to the prior chest x-ray, there is decreasing opacificationoverlying the left hemithorax compatible with decreasing pleural effusion.Persistent streaky opacities at the left lung base are likely related toatelectasis, less likely infectious infiltrate.There cassandra tiny left apical pneumothorax measuring approximately 0.8 cmfrom the apex which may have also beenpresent also on previous chestx-rays from 04/09/2020 and 04/16/2020. The right lung is clear. Thecardiomediastinal silhouette is not enlarged.Finding regarding tiny apical left pneumothorax discussed with Dr. Riggins at 2:35 PM on 04/17/[address] Mathieu Chapa.[facility] CenterCyt Pleural [id number] 17:29:00 Test Item Value Reference Range Interpretation Comments Case Report (test code Non-Gynecologic = [id number]) Cytology ?Case: [id number] ?Authorizing Provider: ?Vance Stafford MD ?Collected: ? 04/16/2020 1650 ?Ordering Location: ? ? Surgery (NADEGE 9C) ? Received: ?04/16/2020 1809 ?Pathologist: ? Jean Marie, Alice Lopez, ? Specimen: ? ?PLEURAL, LEFT, EFFUSION ? Final Diagnosis (test t3riiFLoROPin4ciVZLuhT code = 3877025165) FuZzEwMzNcZnRuYmpcdWMx PUmexmFaMOmsz3BeH8NvEh AwMFxhbnNpXGRlZmxhbmcx UDAiACT8bkFaMRFtMBzqOF ZwGRgtKr7axTZidLsmKzLn RRMcy4xbyaVFqxmugAr6j0 glLVYwIeP2xQRhYJbaO5pw roWwxUXeCHBjMIh9kG14CH QjwL7jvMZuKQgnubGwJqX9 UEipCQIkTkR4RYWcuGPlOS EgF3ouRHLbLObbKUPwVSjg qHZqTOL7tXjkx8Q8yDMfvW WcsTusBpHwIjSiLQOHj4Xq FAl5lVxjV9BhOBPbXvE4tC QgUGFyYWdyYXBoIEZvbnQ7 jA65VSrbaqI3zQZke7Edz6 4ry118nK2szFBdPGP5FHVj NOYraGZiPYMdZKB5JCZyhW CkC8fqRVpcFT8jmersMDB8 MFxtYXJndDcyMFxtYXJnYj YqpSXmPMNnuArrUMvcb956 WLB4NbRhHA6vD7Zyj1F6hY 9maXRcZGVmdGFiNzIwXGZv sw7yhZMlMQuaa0NjMLJ2ra W9zUFocALuUUTcDA48Kjna z1AxZvsjVTN4KTXkbwOfc2 Ndk9lvAbJkirNyT8sgF4Yx ZHJoZWFkXHBnYnJkcmZvb3 Qsi4EqrDWphSa2g9umIMSr YYOpvKlmp4mgBFF9LHVcG6 N0uMFxb4eoISqgIWKwwAN9 ryTsBYOsyDVyP4XrrM5iQG daVG7mluq7m1tgHbXvLZ6g tpszb3fjYDwnNHKfLAZ0Qd MeKPUqf9FokfmlUqUsm5Qw xUUjUPpqC03nz162YKQjos RrQ6tgmEVktlgopZQaheid VKnyvjF6XGMsdgQleCbupA 7ePpBbLtAeKJyvXC1mJFCl Z4sauHKhZSVhZVDhZ2uyLq QjvF9ijCzzBHjgRtMpBuDf MFxiIEEuICBQTEVVUkEsIE fBUcY8VPOGW0PSN3QFHSZP SVMgRkxVSURccGFyICAgIC WnZT7vQE1ASRNSCRILWE3Y ESWBYtPID42ZPvZEIZaZGQ 0NHMNSU2PVYOzUC4nlGRXk ICAgICAgLSBORUdBVElWRS NNY4PfCXUSIXhAJF0GQBIJ TExTXHBsYWluXGYxXGZzMj BcbGFuZzEwMzNcaGljaFxm QRpdDnLeJUQqMNjeF0hkMw MjKuEyLLUlMYDFSVUGH69M OW5IOXvnCKQ8o8aiiDRcFQ UxpYRiZvTgPFWnUEAzd7jc ZGVmbGFuZzEwMzNcZnRuYm kdxHGcNONjJsHxx5dgg306 xSUin8ddBRObYvP7sBMzSU RytNaivrj4sAwxNuVfAFKt e1qfszWrRpGuLGKlOKMzAJ JxqHLlJ140JEAiJNynz9bs n2FdWHGwhKKqd8Q0AKKARO raFlHmF333w1gtg8epuzXu tSQ8YEOkRQS7UZupycWwua J4NKqalKVyQfH3QUicldSk IVojxjMcmlWnSxp5JYVlP4 06ETX3qRslv6aqYSC3PCKz UTDxBjwfVw9frKReT217CG MaHNGONODpeUm9TZAvynNf usFlaKFTt439S729v4iqCH UbjpEzkUsFrmbfe1zsH023 XHBhcGVydzEyMjQwXHBhcG NelEP8IZTvUY5camakOUzm PLcqILYvxtZ7UKNosIViH6 LrSUMgBZ6fkwgaDBJ3MZhr MHSeUCD6WbItKHJvv3Pjwk m1NfGeir6ayx87PUI9p7Po yMyfGXG1WDG0BpCfBu4kqP QqDHEzLW0vRmDtaOKvOEYi dn20mPzmTQupjrQsfT2aLo XrMEJrmMHjQLPtFL2xeOQi JGNxdB2hiiapWLMjAjQedn irNKFgpFkkurRuXi0gtAwr KGN9OFbuY9dvdH1wYmH5EL loM7cliU1vMVl6PRaqmWE6 WAQbeJ3sND4zhznxz0jbDC upRQcnZBUrfdF1nbZ1AIHy hNCcQ1HgiX3kVGWxSA1ewk syc9yvVTP3CEhlKNWiALT6 OmXlQWKto7Ynksc3LuCmj1 CfvUQsDSjaV20yz455VEHi crKzC8vvfQRteedabSGlfp qkBBqkblX4YWEgBSOaHBha XGYxXGZzMjBcbGFuZzEwMz NcaGljaFxmMVxkYmNoXGYx MPkbF7rnVwQnO0JjAXHkOb WqvXSiKAfqxDY6NSQgTCAp v39fxAo9BYPoflyph3WbBC BciLNbvAVfvJ9vsyUrp4dw UOZoATMuMEEpV1KbANX5dA ZyRMMcmHIhoAO1HZ7ihuCs PT5gLXDhFgsbizOwqWQhbi MoXZVnQMzvi1lrYH0mWHAs dZzjoO9gdBL4ZYIbz4yeeH GihONkv2gbj0WlydLqWAol UICxQAbsEHJlLOCwQR4sWQ SneMVpdeDli4Y8NpgmqINo cvbnAkneehM6BXsjyehdMF TwSMjdD0jjYmTqCZDvkXvy Hdwys0WqOCFfYAWuXfqgoJ FyfX0= Final Diagnosis Comment k6ecbTAeLIMufQOoCkSoUI (test code = ZmIKMsm3wmYVSzeDMiTwLg [id number]) MzNcZnRuYmpcdWMxXGRlZm Ggh3wzv044pENeg3ejKTIs ZgN7xSWmQMXigUFdO129q9 eck8ekvcOjlDQ8ZHEoUXH0 QSxwpsMbcyW3PYbfcISeJv S3JTfebkAbZYvexmTgxxDa Dom9COLxI528ZET6kOfrw7 quDEE8NGMaUFHvZlPxHx9c xHWxK818VMPzYNPLAGWwxS c2TKHyynVsigEpiIWXk758 V974w2yjSUQmjsIzgAxAwq xoe5agU686BCHjoMYtdvOc LnBqIVRbeTQrqPU0JQUeZR 2tkgeuQZJ5BGndHAHfmxNw BIXilMJgI7G3NrUgxTZeM7 PdRBgjTBXbawt9WzQbOk5q eFDcwWY0LDsvv6eqq0hduY LyCpl6QAOeLwZcGjnqTTti o2Tat4kkYFXipz3mINQ5hF SyfVxwl7K9yIXpHORxoYCv fdDtIJDuBcA1MDplQR3ols 61ZOSzRVF1fr6ruBViqEyc okApnQVaRNysK6NsUBSja1 95OKFdM0KfBCQam6P1udAt MdMiBWZgjCW8gsT1BQOwYG v2rSDavvE7xjFboGCfK0jz hE9cRJegBE2rrclfn4gzBE H9VVbwIGXzwVC4plcuJTxr STQsElI8riJpfGWfWZOrbC nkUDdoi332WUN2PfLhHZYk c3YgQ1RucNybG90yoOzhK2 7wGHPqlNcmuY7adDxacL4w ZjBcZnMyNFxxbFxwbGFpbl xmMFxmczIwXGxhbmcxMDMz ZFtpS5bzSkIgQPYmbHhpSY hut2FyZVUmNXGlNiWiW35b DUBbc1kwl7YtoFq8MAOheG 2poKApaLM5eK8mMYbhxMsw xUWsVS6pcO8hlxWpcILyNA P0pu7tjFisygxsVhL6LYx0 qJBsa6G0eJNbLMWxKROpzP TkqP4xQFOiv19ikLJ3MF67 WHtmzWrgGP6oyHAuTK8xZv 7awDWriNyfZY56NQBhgUve XQjmCW00mLEdNFIvULihZE J9 Clinical Information Clinical Hx: ?Total (test code = colectomy complicated [id number]) . Requested per consulting surgery team. Gross Description (test a5rsaTGsYQNmxVXoJiJbVP code = 0933496653) LgGAAxi1ybLQIwuQPjSyGe MzNcZnRuYmpcdWMxXGRlZm Nzm0oar333tCNdb0pbTKOm RmD9rXDsSVGicCZnO123a0 ped2ipekObmQQ1EUWyIRO5 AXvbqwUqtaG1VJikuVUqYq Y1OSudlaXjNSlaltQkzzVa Gmq1RQAyY598PQQ4eFtmq7 esJBT7MBYyASKxVxVmGy3k dJPrU859PNVgRVUJYDLaxO p0IWXiyaTvagNljVTXm234 E597r8byKTEihbJvmQyWub hzi9ndY224GWTfjKQdidYu XpMyCBKocWLkqXM8HDRwZR 7njhanEOK5UTecFZXjlhWo DWJkuHMiF7U2ZrUsgSVsX5 GwPFhoNNOxgkx2DvYuWc6r nTAviBX0LOphm2sgt1dgcD RoAfy3AQLcOsIdIsnmFXxb p9Zux1epWJFept5qQJT5zJ LkeCdrm6N7hUSlJQIcrTVc xmDnZRVbZlM3LTpyHN1jiz 60YASyZGO6vn0mvSExwObp teVodTXtTHxxK8QlKAPgn9 40OTPhW0DhPIDti4B5pqGe UnPtPWUbcIA0utD2HCPoTB k4wEReviU4ipHfmAXfP4zi xW1gLBhgKQ7xrhdsf9iaQZ F6MSscUNHooXQ2ounkZUmy ZWOfIxX2yaOmtWIiMSKbpW txVDlpt989LIA1RvUcPKBy g7ZlJ5XswAnyY62giJlnW8 3hZVXvlVgqzR6ofFcasU1s ZjBcZnMyNFxxbFxwbGFpbl xmMFxmczIwXGxhbmcxMDMz RPtsM0plXbKsEQRxzUzzON omn8OgJWReABYzNoBsXGKr UFVFXRLVPrGzDOxPApG3XY QTV8QOA0UJTTDJURJzSylF UVHjvTTtQDLgR7TssvInGQ SuPPGvUOubFCAxIODzZ8Jw b9HujCQrlX59DJDnvNzkYM xwYXIgUHJlcGFyZWQgMiBz iSgtKXEjYBClGBXsJU8zZ7 6sJU61BGU6rC8unWzsQMCq ujIpQUSEu63nww95d6l4HM M2qA4goHhkLZSsYDPmldG8 jV8uEQavAWO8 Embedded Images (test code = 9031155167) [facility] [id number] 13:05:21EXAM: XR CHEST 1 VW HISTORY: post thoracentesis COMPARISON: None. FINDINGS: The chest tubes on the left are unchanged in position. Similarly unchangedis the pleural effusion on that side, part of it loculated. The density inthe lung on the left is probably due to pneumonia since pulmonary edemawould produce changes on the right as well, and the right lung iswell-expanded and clear. The heart and great vessels are normal. Theappearance of the chest is little different than noted yesterday. ? [facility], Radiant Results Inft User - 04/17/2020 8:06 AM CDTEXAM: XR CHEST 1 VWHISTORY: post thoracentesis COMPARISON: None.FINDINGS:The chest tubes on the left are unchanged in position. Similarly unchangedis the pleural effusion on that side, part of it loculated. The density inthe lung on the left is probably due to pneumonia since pulmonary edemawould produce changes on the right as well, and the right lung iswell-expanded and clear. The heart and great vessels are normal. Theappearance of the chest is little different than noted yesterday.[facility] WITH [id number] 11:18:00 Test Item Value Reference Range Interpretation Comments WBC (test code = See_Comment H [Automated 6090-2) message] The system which generated this result transmit dain reference range : 4.20 - 10.70 10*3/?L. The reference range was not used to interpret this result as normal/abnormal . RBC (test code = See_Comment L [Automated 989-8) message] The system which generated this result transmit dain reference range : 4.26 - 5.52 10*6/?L. The reference range was not used to interpret this result as normal/abnormal . HGB (test code = 8.6 g/dL 12.2-16.4 L 718-7) HCT (test code = 26.4 % 38.4-49.3 L 4544-3) MCV (test code = 88.3 fL 81.7-95.6 787-2) MCH (test code = 28.8 pg 26.1-32.7 785-6) MCHC (test code = 32.6 g/dL 31.2-35 786-4) RDW-SD (test code = 47.8 fL 38.5-51.6 16690-2) RDW-CV (test code = 14.7 % 12.1-15.4 788-0) PLT (test code = See_Comment HH [Automated 777-3) message] The system which generated this result transmit dain reference range : 150 - 328 10*3/ ?L. The reference range was not u sed to interpret th is result as normal/abnormal . MPV (test code = 9.9 fL 9.8-13 30388-8) NRBC/100 WBC (test See_Comment [Automat ed code = 0825786097) message] The system which generated this result transmit dain reference range : 0.0 - 10.0 /100 WBCs. The reference range was not used to interpret this result as normal/abnormal . NRBC x10^3 (test code <0.01 See_Comment [Auto mated = 1347241728) message] The system which generated this result transmit dain reference range : 10*3/?L. The reference range was not used to interpret this result as normal/abnormal . GRAN MAT (NEUT) % 81.7 % (test code = 770-8) IMM GRAN % (test code 1.10 % = 5479506367) LYMPH % (test code = 9.1 % 736-9) MONO % (test code = 7.3 % 5905-5) EOS % (test code = 0.5 % 713-8) BASO % (test code = 0.3 % 706-2) GRAN MAT x10^3(ANC) 10.91 10*3/uL 1.99-6.95 H (test code = 3245255596) IMM GRAN x10^3 (test 0.15 10*3/uL 0-0.06 H code = 7394805479) LYMPH x10^3 (test code 1.21 10*3/uL 1.09-3.23 = 731-0) MONO x10^3 (test code 0.97 10*3/uL 0.36-1.02 = 742-7) EOS x10^3 (test code = 0.07 10*3/uL 0.06-0.53 711-2) BASO x10^3 (test code 0.04 10*3/uL 0.01-0.09 = 704-7) Lab Interpretation Abnormal (test code = 80229-6) [facility] METABOLIC PANEL (NA, K, CL, CO2, GLUCOSE, BUN, CREATININE, CA)2020-04-17 10:49:00 Test Item Value Reference Range Interpretation Comments NA (test code = 134 mmol/L 135-145 L 1491740512) K (test code = 4.2 mmol/L 3.5-5 2535615407) CL (test code = 103 mmol/L 98-108 2123376585) CO2 TOTAL (test code = 26 mmol/L 23-31 7793996587) AGAP (test code = 2-16 2168134351) BUN (test code = 12 mg/dL 7-23 9108974164) GLUCOSE (test code = 107 mg/dL 70-110 3006060243) CREATININE (test code = 0.74 mg/dL 0.6-1.25 3481680579) CALCIUM (test code = 7.8 mg/dL 8.6-10.6 L 1766507559) eGFR Calculation mL/min/1.73m2 (Non-) (test code = 2747269551) eGFR Calculation mL/min/1.73m2 () (test code = 6643082466) GILBERTO (test code = GILBERTO) Association of Glomerular Filtration Rate (GFR) and Staging of Kidney Disease* + --+ --+ ------+| GFR (mL/min/1.73 m2) ?| With Kidney Damage ?| ?Without Kidney Damage+ --------+ --------+ +| ?>90 ?| ?Stage one ?| ? Normal ?+ ---+ ---+ -------+| ?60-89 ?| ?Stage two ?| ? Decreased GFR ? + --+ --+ ------+| ?30-59 ?| ?Stage three ?| ? Stage three ? + --+ --+ ------+| ?15-29 ?| ?Stage four ? | ? Stage four ?+ ---+ ---+ -------+| ?<15 (or dialysis) ? ?| ?Stage five ? | ? Stage five ?+ ---+ ---+ -------+ *Each stage assumes the associated GFR level has been in effect for at least three months. ?Stages 1 to 5, with or without kidney disease, indicate chronic kidney disease. Notes: Determination of stages one and two (with eGFR >59mL/min/1.73 m2) requires estimation of kidney damage for at least three months as defined by structural or functional abnormalities of the kidney, manifested by either:Pathological abnormalities or Markers of kidney damage (including abnormalities in the composition of the blood or urine or abnormalities in imaging tests). Lab Interpretation Abnormal (test code = 69917-3) [facility]2020-08-25 10:49:00 Test Item Value Reference Range Interpretation Comments MAGNESIUM (test code = 9468353139) 2.3 mg/dL 1.7-2.4 Lab Interpretation (test code = Normal 96867-6) [facility]US2020-08-25 10:49:00 Test Item Value Reference Range Interpretation Comments PHOSPHORUS (test code = 5244144207) 3.8 mg/dL 2.5-5 Lab Interpretation (test code = Normal 59073-8) [facility] TOTAL BODY [id number] 00:37:00 Test Item Value Reference Range Interpretation Comments LDH BF (test code = 3707 U/L 6726499907) UNSPUN BODY FLUID Light Yellow COLOR (test code = 2815486374) UNSPUN BODY FLUID Clear CLARITY (test code = 8454915058) SPUN BODY FLUID Light Yellow COLOR (test code = 3272173706) SPUN BODY FLUID Clear CLARITY (test code = 8594658841) Sediment (test code The sediment volume is 0.1 = 9855800113) mLs of the total fluid volume of 3mLs and its color is white. GILBERTO (test code = Test developed and GILBERTO) characteristics determined by [facility] Laboratory Services. [facility] 1 [id number] 00:22:53 1. ?Left lower lung zone [address]. A pleural effusionappears slightly larger compared to 817 with a possible small pneumothorax.EXAM: XR CHEST 1 VW HISTORY: post chest tube COMPARISON: 04/09/2020 FINDINGS: Lines/Tubes: 2 left chest tube pigtail catheters in place. Lungs: The left lung is partial opacified by an enlarging effusion. Thereis also previous central lucency extending along the sulcus suggesting asmall pneumothorax.In the right lung and hemithorax are clear.. Heart/Mediastinum: The cardiomediastinal silhouette is normal fortechnique. Bones: No acute osseous abnormalityis seen. [facility], Radiant Results Inft User - 04/16/2020 7:23 PM CDTEXAM: XR CHEST 1 VWHISTORY: post chest tube COMPARISON: 04/09/2020FINDINGS:Lines/Tubes: 2 left chest tube pigtail catheters in place.Lungs: The left lung is partial opacified by an enlarging effusion. Thereis also previous central lucencyextending along the sulcus suggesting asmall pneumothorax.In the right lung and hemithorax are clear. .Heart/Mediastinum: The cardiomediastinal silhouette is normal fortechnique.Bones: No acute osseous abnormality is seen.IMPRESSION1. Left lower lung zone [address]. A pleural effusionappears slightly larger compared to 817 with a possible small pneumothorax.[facility] CenterBODY FLUID DIRECT [id number] 00:10:00 Test Item Value Reference Range Interpretation Comments BF COLOR Light Yellow (test code = 4231867828) BF WBC Count See_Comment [Automated (test code = message] The sy stem 0420077247) which generated this result transmitted reference range : /?L. The refere nce range was not u sed to interpret th is result as normal/abnormal . BF RBC Count <3000 See_Comment [Automated (test code = message] The sy stem 3641805437) which generated this result transmitted reference range : /?L. The refere nce range was not u sed to interpret th is result as normal/abnormal . GILBERTO (test The reference range code = GILBERTO) and other method performance specifications have not been established for this body fluid. ?The test results must be integrated into the clinical context for interpretation. [facility] CenterBODY FLUID MANUAL [id number] 00:10:00 Test Item Value Reference Range Interpretation Comments BF SEGS (test code = 0765166396) 78 % MACROPHAGE (test code = 1633703764) 22 % #CELS CNTD (test code = 0161536071) [facility] CenterAmylase Body [id number] 00:03:00 Test Item Value Reference Range Interpretation Comments AMYLASE BF (test 313 U/L code = 2593684114) UNSPUN BODY FLUID Yellow COLOR (test code = 2094017349) UNSPUN BODY FLUID Clear CLARITY (test code = 6456022664) SPUN BODY FLUID Yellow COLOR (test code = 5713589577) SPUN BODY FLUID Clear CLARITY (test code = 5991890089) Sediment (test code The sediment volume is = 6658897003) <0.1 mLs of the total fluid volume of 1mL and its color is red. GILBERTO (test code = Test developed and GILBERTO) characteristics determined by [facility] Laboratory Services. [facility] CenterGlucose Body [id number] 00:03:00 Test Item Value Reference Range Interpretation Comments GLUCOSE BF (test 57 mg/dL code = 9017495811) UNSPUN BODY FLUID Yellow COLOR (test code = 6868952122) UNSPUN BODY FLUID Clear CLARITY (test code = 8601227027) SPUN BODY FLUID Yellow COLOR (test code = 7198243949) SPUN BODY FLUID Clear CLARITY (test code = 9251651013) Sediment (test code The sediment volume is = 3084546720) <0.1 mLs of the total fluid volume of 1mL and its color is red. GILBERTO (test code = Test developed and GILBERTO) characteristics determined by [facility] Laboratory Services. [facility] CenterTotal Protein Body [id number] 00:03:00 Test Item Value Reference Range Interpretation Comments T.PROT BF (test 3000.0 mg/dL code = 1907555064) UNSPUN BODY FLUID Yellow COLOR (test code = 6983007050) UNSPUN BODY FLUID Clear CLARITY (test code = 9180707957) SPUN BODY FLUID Yellow COLOR (test code = 3603560381) SPUN BODY FLUID Clear CLARITY (test code = 5313167126) Sediment (test code The sediment volume is = 9905824314) <0.1 mLs of the total fluid volume of 1mL and its color is red. GILBERTO (test code = Test developed and GILBERTO) characteristics determined by [facility] Laboratory Services. [facility] CenterPH, Body [id number] 23:56:00 Test Item Value Reference Range Interpretation Comments PH BF (test code = 0250728874) UNSPUN BODY FLUID COLOR Light Yellow (test code = 0742238187) UNSPUN BODY FLUID Clear CLARITY (test code = 3449304039) SPUN BODY FLUID COLOR Light Yellow (test code = 5195086509) SPUN BODY FLUID CLARITY Clear (test code = 8279426006) Sediment (test code = The sediment volume is 7989145187) 0.1 mLs of the total fluid volume of 5.5mLs and its color is white/red. [facility] CenterIR DRAINAGE BY CATHETER PERITONEAL OR [id number] 21:10:26 Successful placement of a 12 [place] drain in the left upper quadrantcollection. Successful placement of a 14 [place] drain in the midline air fluidcollection. Successful placement of a 10 [place] drain in the right lower quadrant fluidcollection. Preliminary Report Dictated by Resident: Hayden Bundy As the attending radiologist I was present in the room for the entirety ofthe procedure. I, Neris Grier MD., have reviewed this study and agree with the abovereport.EXAMINATION:PERCUTANEOUS ASPIRATION HISTORY: 50-year-old male with postoperative abdominal fluid collections SEDATION: Moderate sedation was administered under the supervision of atrained nurse specialist who was independent from those actually performingthe procedure. Please refer to [facility] regarding sedation time. RADIATION DOSE: 1957 mGy - cm. TECHNIQUE: The risks, benefits and alternatives were discussed and informed consentwas obtained. Prior to beginning the procedure, Dexter Protocol was usedto confirm the patient's identity and planned procedure. Maximum sterilebarriers including cap, mask, hand hygiene, sterile gloves, sterile gown,large sterile drape and cutaneous antisepsis were used. The anteriorabdominal wall was sterilely prepped, and draped. The skinoverlying the left upper, right upper, andright lower quadrants wasinfiltrated with lidocaine 2%. The targeted collection in the left upper quadrant was then accessed with b77-qgohk quadrant needle using CT guidance. A 0.035 Amplatz wire wasadvanced through the coaxial needle. The tract was serially dilated to 12French. A pigtail 12 [place] catheter was placed in the left upper quadrantcollection. Approximately, 210 cc of purulent fluid was removed. The air-fluid collection in the mid abdomen was accessed through the rightupper quadrant. An 18 [place] pigtail catheter was placed in this collectionunder CT guidance in a similar fashion to thedrain and left upperquadrant. Approximately, 1250 cc of purulent material were removed. The fluid collection in the right lower quadrant was also accessed in asimilar fashion. A 10 [place] pigtail catheter was placed in this collectionunder CT guidance. 50 cc of purulent material were removed. A sampleof the fluid was sent to the lab for analysis. ESTIMATED BLOOD LOSS: Minimal. DISCHARGED TO: Recovery and then returned to inpatient unit. CONDITION: Stable. FINDINGS: Images from the procedure revealed air and fluid collections in the leftupper quadrant, midabdomen, and right lower quadrant that wereaccessedunder CT guidance, as described above. The fluid appeared purulent. Approximately total of 1510 mL was aspirated at the time of the procedure. [facility], Radiant Results Inft User - 04/16/2020 4:11 PM CDTEXAMINATION: PERCUTANEOUS ASPIRATIONHISTORY: 50-year-old male with postoperative abdominal fluid collections SEDATION: Moderate sedation was administered under the supervision of atrained nurse specialist who was independent from those actually performingthe procedure. Please refer to [facility] regarding sedation time.RADIATION DOSE: 1957 mGy - cm.TECHNIQUE: The risks, benefits and alternatives were d iscussed and informed consentwas obtained. Prior to beginning the procedure, Dexter Protocol was usedto confirm the patient's identity and planned procedure. Maximum sterilebarriers including cap, mask, hand hygiene, sterile gloves, sterile gown,large sterile drape and cutaneous antisepsis were used. The anterior abdominal wall was sterilely prepped, and draped. The skinoverlying the left upper, right upper, and right lower quadrants wasinfiltrated with lidocaine 2%.The targeted collection in theleft upper quadrant was then accessed with a18- gauge quadrant needle using CT guidance. A 0.035 Amplatz wire wasadvanced through the coaxial needle. The tract was serially dilated to 12French. A pigtail 12 [place] catheter was placed in the left upper quadrantcollection. Approximately, 210 cc of purulent fluid was removed.The air-fluid collection in the mid abdomen was accessed through the rightupper quadrant. An 18 [place] pigtail catheter was placed in this collectionunder CT guidance in a similar fa shion to the drain and left upperquadrant. Approximately, 1250 cc of purulent material were removed.The fluid collection in the right lower quadrant was also accessed in asimilar fashion. A 10 [place] pigtail catheter was placed in this collectionunder CT guidance. 50 cc of purulent material were removed.A sample of the fluid was sent to the lab for analysis.ESTIMATED BLOOD LOSS: Minimal.DISCHARGED TO: Recovery and then returned to inpatient unit.CONDITION: Stable.FINDINGS: Images from the procedure revealed air and fluid collections in the leftupper quadrant, midabdomen, and right lower quadrant that were accessedunder CT guidance, as described above.The fluid appeared purulent.Approximately totalof 1510 mL was aspirated at the time of the procedure. IMPRESSIONSuccessful placement of a 12 Frenchdrain in the left upper quadrantcollection.Successful placement of a 14 [place] drain in the midline air fluidcollection.Successful placement of a 10 [place] drain in the right lower quadrant fluidcollection.Preliminary Report Dictated by Resident: Hayden Murphy the attending radiologist I was present in the room for the entirety ofthe procedure.I, Neris Grier MD., have reviewed this study and agree with the abovereport.[facility] CenterB[facility]EROBIC/ANAEROBIC)2020-04-16 19:45:00 Test Item Value Reference Range Interpretation Comments BODY FLUID CULT 2+ Bacteroides fragillis (test code = 611-4) Gram stain (test Occasional (Rare) code = 664-3) Mononuclear cells [facility] CenterPROTHROMBIN TIME / [id number] 16:38:00 Test Item Value Reference Range Interpretation Comments PROTIME PATIENT (test See_Comment H [Auto mated message] code = 5964-2) The system [facility] generated this result transmitted ref erence range: 10.1 - 1 2.6 Seconds. The reference range was not used to int erpret this result as normal/abnormal . INR (test code = 6301-6) Nor mal INR <1.1; Warfarin Therap eutic range 2.0 to 3. 0 or 2.5 to 3.5, dep ending upon the indica tions. Lab Interpretation (test Abnormal code = 21400-7) [facility] CenterCT ABDOMEN PELVIS W [id number] 13:40:08Impression: 1. ?Interval placement of 4 percutaneous drainage catheters with decreasein size of previously seen collections. Improvement in free air.Subcapsular scalloping collections are again seen around the liver and thespleen. Large left and a small right-sided pleural effusion. 2. ?Stable appearance of postsurgical changes, and open wound in themidline anterior abdominal wall, and oral contrast seen up to the ostomy.Exam: CT ABDOMEN PELVIS W CONTRAST Clinical History: Abd pain, fever, abscess suspected IV and PO contrastneeded Comparison: April 12, 2020 Findings: The visualized lung bases show a large left and a small right-sided pleuraleffusion along with bilateral lower lobe atelectasis. There is no evidenceof pericardial effusion. The liver shows no focal lesions or ductal dilatation. Subcapsularhypodensities are again seen, slightly larger when compared to the priorstudy. A hypodensityabutting hepatic segment 6 measures 1.3 cm, previouslymeasuring 0.9 cm (3:63). The gallbladder is collapsed and unremarkable. Thespleen is normal in size and shows no focal lesions. A scallopingperipheral collection is again seen measuring 6.5 cm (3:41), previouslymeasuring 6.9 cm. The pancreas, adrenals, and the kidneys are unremarkable. Interval placement of a right upper quadrant and a left upper quadrantpercutaneous drainage catheters with their tips in the intra- abdominalcollections which are smaller when compared to the prior study. Theleft-sided subdiaphragmatic collection measures approximately 3 cm(601:46), previously measuring about 5 cm. The previously seen large airand fluid collectionin the upper abdomen, in the midline is also smallerin size and measures approximately 16.5 cm, previously measuring about 27cm. 2 additional percutaneous drainage catheters are seen in the lower quadrantof the abdomen, the tip of one of the catheters is in the right side of thepelvis and the other one is draining the collection in the right lowerquadrant. In this location the collection measures approximately 5 cm,previously measuring about 7.5 cm (3:96). There is no evidence oflymphadenopathy. Free air has also improved when compared to the priorstudy. 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 Oral contrast is visualized uptothe right-sided ileostomy with no evidence of contrast extravasation. Theurinary bladder and prostate are unremarkable. The abdominal wall shows a ostomy on the right side, a midline open woundwith packing material. The vasculature is unremarkable and the bones showmild degenerative changes and no suspicious focal lesions. [facility], Radiant Results Inft User - 04/16/2020 8:41 AM CDTExam: CT ABDOMEN PELVIS W CONTRASTClinical History: Abd pain, fever, abscess suspected IV and PO contrastneededComparison: April 12, 2020Findings: The visualized lung bases show a large left and a small right- sided pleuraleffusion along with bilateral lower lobe atelectasis. There is no evidenceof pericardial effusion.The liver shows no focal lesions or ductal dilatation. Subcapsularhypodensities are again seen, slightly larger when compared to the priorstudy. A hypodensity abutting hepatic segment 6 measures 1.3 cm, previouslymeasuring 0.9 cm (3:63). The gallbladder is collapsed and unremarkable. Thespleen is normal in size and shows no focal lesions. A scallopingperipheral collection is again seen measuring 6.5 cm (3:41), previouslymeasuring 6.9 cm. The pancreas, adrenals, and the kidneys are unremarkable.Intervalplacement of a right upper quadrant and a left upper quadrantpercutaneous drainage catheters with their tips in the intra- abdominalcollections which are smaller when compared to the prior study. Theleft -sided subdiaphragmatic collection measures approximately 3 cm(601:46), previously measuring about 5cm. The previously seen large airand fluid collection in the upper abdomen, in the midline is also smallerin size and measures approximately 16.5 cm, previously measuring about 27cm.2 additional percutaneous drainage catheters are seen in the lower quadrantof the abdomen, the tip of one of the catheters is in the right side of thepelvis and the other one is draining the collection in the right lowerquadrant. In this location the collection measures approximately 5 cm,previously measuring about 7.5 cm (3:96). There is no evidence oflymphadenopathy. Free air has also improved when compared to the priorstudy.Stable appearance of postsurgical changes (colostomy with Smith's pouch)with no evidence ofdilated bowel loops. Oral contrast is visualized up tothe right-sided ileostomy with no evidence of contrast extravasation. Theurinary bladder and prostate are unremarkable.The abdominal wall shows a ostomy on the right side, a midline open woundwith packing material. The vasculature is unremarkable and the bones showmild degenerative changes and no suspicious focal lesions.IMPRESSIONImpression: 1. Interval placement of 4 percutaneous drainage catheters with decreasein size of previously seen collections. Improvement in free air.Subcapsular scalloping collections are again seen around the liver andthespleen. Large left and a small right-sided pleural effusion.2. Stable appearance of postsurgical changes, and open wound in themidline anterior abdominal wall, and oral contrast seen up to the ostomy.[facility] (NA, K, CL, CO2, GLUCOSE, BUN, CREATININE, CA)2020-04-16 10:51:00 Test Item Value Reference Range Interpretation Comments NA (test code = 132 mmol/L 135-145 L 6647543233) K (test code = 4.1 mmol/L 3.5-5 6584499472) CL (test code = 103 mmol/L 98-108 3178479170) CO2 TOTAL (test code = 24 mmol/L 23-31 4400251429) AGAP (test code = 2-16 2878357470) BUN (test code = 13 mg/dL 7-23 3561050803) GLUCOSE (test code = 132 mg/dL 70-110 H 2974254098) CREATININE (test code = 0.77 mg/dL 0.6-1.25 2111141057) CALCIUM (test code = 7.4 mg/dL 8.6-10.6 L 4587058009) eGFR Calculation mL/min/1.73m2 (Non-) (test code = 7556004356) eGFR Calculation mL/min/1.73m2 () (test code = 4015352800) GILBERTO (test code = GILBERTO) Association of Glomerular Filtration Rate (GFR) and Staging of Kidney Disease* + --+ --+ ------+| GFR (mL/min/1.73 m2) ?| With Kidney Damage ?| ?Without Kidney Damage+ --------+ --------+ +| ?>90 ?| ?Stage one ?| ? Normal ?+ ---+ ---+ -------+| ?60-89 ?| ?Stage two ?| ? Decreased GFR ? + --+ --+ ------+| ?30-59 ?| ?Stage three ?| ? Stage three ? + --+ --+ ------+| ?15-29 ?| ?Stage four ? | ? Stage four ?+ ---+ ---+ -------+| ?<15 (or dialysis) ? ?| ?Stage five ? | ? Stage five ?+ ---+ ---+ -------+ *Each stage assumes the associated GFR level has been in effect for at least three months. ?Stages 1 to 5, with or without kidney disease, indicate chronic kidney disease. Notes: Determination of stages one and two (with eGFR >59mL/min/1.73 m2) requires estimation of kidney damage for at least three months as defined by structural or functional abnormalities of the kidney, manifested by either:Pathological abnormalities or Markers of kidney damage (including abnormalities in the composition of the blood or urine or abnormalities in imaging tests). Lab Interpretation Abnormal (test code = 65732-2) [facility]2020-08-24 10:51:00 Test Item Value Reference Range Interpretation Comments MAGNESIUM (test code = 9590268899) 2.2 mg/dL 1.7-2.4 Lab Interpretation (test code = Normal 08315-2) [facility]2020-08-24 10:51:00 Test Item Value Reference Range Interpretation Comments PHOSPHORUS (test code = 9370756748) 3.1 mg/dL 2.5-5 Lab Interpretation (test code = Normal 94872-2) [facility] CenterCB WITH [id number] 10:37:00 Test Item Value Reference Range Interpretation Comments WBC (test code = See_Comment H [Automated 6690-2) message] The system which generated this result transmit dain reference range : 4.20 - 10.70 10*3/?L. The reference range was not used to interpret this result as normal/abnormal . RBC (test code = See_Comment L [Automated 789-8) message] The system which generated this result transmit dain reference range : 4.26 - 5.52 10*6/?L. The reference range was not used to interpret this result as normal/abnormal . HGB (test code = 9.1 g/dL 12.2-16.4 L 718-7) HCT (test code = 28.1 % 38.4-49.3 L 4544-3) MCV (test code = 87.3 fL 81.7-95.6 787-2) MCH (test code = 28.3 pg 26.1-32.7 785-6) MCHC (test code = 32.4 g/dL 31.2-35 786-4) RDW-SD (test code = 47.4 fL 38.5-51.6 87373-4) RDW-CV (test code = 14.7 % 12.1-15.4 788-0) PLT (test code = See_Comment H [Automated 777-3) message] The system which generated this result transmit dain reference range : 150 - 328 10*3/ ?L. The reference range was not u sed to interpret th is result as normal/abnormal . MPV (test code = 10.1 fL 9.8-13 22878-3) NRBC/100 WBC (test See_Comment [Automat ed code = 3344691755) message] The system which generated this result transmit dain reference range : 0.0 - 10.0 /100 WBCs. The reference range was not used to interpret this result as normal/abnormal . NRBC x10^3 (test code <0.01 See_Comment [Auto mated = 3064352950) message] The system which generated this result transmit dain reference range : 10*3/?L. The reference range was not used to interpret this result as normal/abnormal . GRAN MAT (NEUT) % 83.0 % (test code = 770-8) IMM GRAN % (test code 1.50 % = 3247249129) LYMPH % (test code = 7.6 % 736-9) MONO % (test code = 7.3 % 5905-5) EOS % (test code = 0.3 % 713-8) BASO % (test code = 0.3 % 706-2) GRAN MAT x10^3(ANC) 11.53 10*3/uL 1.99-6.95 H (test code = 4038030356) IMM GRAN x10^3 (test 0.21 10*3/uL 0-0.06 H code = 3884309573) LYMPH x10^3 (test code 1.05 10*3/uL 1.09-3.23 L = 731-0) MONO x10^3 (test code 1.01 10*3/uL 0.36-1.02 = 742-7) EOS x10^3 (test code = 0.04 10*3/uL 0.06-0.53 L 711-2) BASO x10^3 (test code 0.04 10*3/uL 0.01-0.09 = 704-7) Lab Interpretation Abnormal (test code = 75559-1) [facility] METABOLIC PANEL (NA, K, CL, CO2, GLUCOSE, BUN, CREATININE, CA)2020-04-15 11:01:00 Test Item Value Reference Range Interpretation Comments NA (test code = 132 mmol/L 135-145 L 9733860187) K (test code = 4.7 mmol/L 3.5-5 9629698189) CL (test code = 103 mmol/L 98-108 2484299785) CO2 TOTAL (test code = 22 mmol/L 23-31 L 8648246512) AGAP (test code = 2-16 9015358538) BUN (test code = 14 mg/dL 7-23 3932405454) GLUCOSE (test code = 114 mg/dL 70-110 H 7545704952) CREATININE (test code = 0.74 mg/dL 0.6-1.25 1800187271) CALCIUM (test code = 7.9 mg/dL 8.6-10.6 L 7604370271) eGFR Calculation mL/min/1.73m2 (Non-) (test code = 1790868679) eGFR Calculation mL/min/1.73m2 () (test code = 2566430225) GILBERTO (test code = GILBERTO) Association of Glomerular Filtration Rate (GFR) and Staging of Kidney Disease* + --+ --+ ------+| GFR (mL/min/1.73 m2) ?| With Kidney Damage ?| ?Without Kidney Damage+ --------+ --------+ +| ?>90 ?| ?Stage one ?| ? Normal ?+ ---+ ---+ -------+| ?60-89 ?| ?Stage two ?| ? Decreased GFR ? + --+ --+ ------+| ?30-59 ?| ?Stage three ?| ? Stage three ? + --+ --+ ------+| ?15-29 ?| ?Stage four ? | ? Stage four ?+ ---+ ---+ -------+| ?<15 (or dialysis) ? ?| ?Stage five ? | ? Stage five ?+ ---+ ---+ -------+ *Each stage assumes the associated GFR level has been in effect for at least three months. ?Stages 1 to 5, with or without kidney disease, indicate chronic kidney disease. Notes: Determination of stages one and two (with eGFR >59mL/min/1.73 m2) requires estimation of kidney damage for at least three months as defined by structural or functional abnormalities of the kidney, manifested by either:Pathological abnormalities or Markers of kidney damage (including abnormalities in the composition of the blood or urine or abnormalities in imaging tests). Lab Interpretation Abnormal (test code = 29565-6) [facility]2020-08-23 11:01:00 Test Item Value Reference Range Interpretation Comments MAGNESIUM (test code = 2228657574) 2.1 mg/dL 1.7-2.4 Lab Interpretation (test code = Normal 07162-8) [facility]PH[facility]2020-08-23 11:01:00 Test Item Value Reference Range Interpretation Comments PHOSPHORUS (test code = 0372723741) 3.4 mg/dL 2.5-5 Lab Interpretation (test code = Normal 34978-8) [facility] CenterCBC WITH [id number] 10:46:00 Test Item Value Reference Range Interpretation Comments WBC (test code = See_Comment H [Automated 6690-2) message] The system which generated this result transmit dain reference range : 4.20 - 10.70 10*3/?L. The reference range was not used to interpret this result as normal/abnormal . RBC (test code = See_Comment L [Automated 789-8) message] The system which generated this result transmit dain reference range : 4.26 - 5.52 10*6/?L. The reference range was not used to interpret this result as normal/abnormal . HGB (test code = 9.5 g/dL 12.2-16.4 L 718-7) HCT (test code = 29.4 % 38.4-49.3 L 4544-3) MCV (test code = 86.2 fL 81.7-95.6 787-2) MCH (test code = 27.9 pg 26.1-32.7 785-6) MCHC (test code = 32.3 g/dL 31.2-35 786-4) RDW-SD (test code = 47.7 fL 38.5-51.6 77331-7) RDW-CV (test code = 15.0 % 12.1-15.4 788-0) PLT (test code = See_Comment H [Automated 777-3) message] The system which generated this result transmit dain reference range : 150 - 328 10*3/ ?L. The reference range was not u sed to interpret th is result as normal/abnormal . MPV (test code = 10.4 fL 9.8-13 52526-5) NRBC/100 WBC (test See_Comment [Automat ed code = 9386333052) message] The system which generated this result transmit dain reference range : 0.0 - 10.0 /100 WBCs. The reference range was not used to interpret this result as normal/abnormal . NRBC x10^3 (test code <0.01 See_Comment [Auto mated = 3449389680) message] The system which generated this result transmit dain reference range : 10*3/?L. The reference range was not used to interpret this result as normal/abnormal . GRAN MAT (NEUT) % 85.0 % (test code = 770-8) IMM GRAN % (test code 1.10 % = 9321334968) LYMPH % (test code = 7.2 % 736-9) MONO % (test code = 6.4 % 5905-5) EOS % (test code = 0.1 % 713-8) BASO % (test code = 0.2 % 706-2) GRAN MAT x10^3(ANC) 14.87 10*3/uL 1.99-6.95 H (test code = 8657607071) IMM GRAN x10^3 (test 0.20 10*3/uL 0-0.06 H code = 2804846235) LYMPH x10^3 (test code 1.25 10*3/uL 1.09-3.23 = 731-0) MONO x10^3 (test code 1.11 10*3/uL 0.36-1.02 H = 742-7) EOS x10^3 (test code = <0.03 0.06-0.53 L 711-2) BASO x10^3 (test code 0.03 10*3/uL 0.01-0.09 = 704-7) Lab Interpretation Abnormal (test code = 66720-8) [facility] METABOLIC PANEL (NA, K, CL, CO2, GLUCOSE, BUN, CREATININE, CA)2020-04-14 12:15:00 Test Item Value Reference Range Interpretation Comments NA (test code = 134 mmol/L 135-145 L 3623803687) K (test code = 4.9 mmol/L 3.5-5 3880171806) CL (test code = 105 mmol/L 98-108 9652744067) CO2 TOTAL (test code = 23 mmol/L 23-31 3022042487) AGAP (test code = 2-16 9733441015) BUN (test code = 16 mg/dL 7-23 5147473808) GLUCOSE (test code = 102 mg/dL 70-110 7758249014) CREATININE (test code = 0.82 mg/dL 0.6-1.25 1496956689) CALCIUM (test code = 7.9 mg/dL 8.6-10.6 L 6799858781) eGFR Calculation mL/min/1.73m2 (Non-) (test code = 8387228978) eGFR Calculation mL/min/1.73m2 () (test code = 4873663404) GILBERTO (test code = GILBERTO) Association of Glomerular Filtration Rate (GFR) and Staging of Kidney Disease* + --+ --+ ------+| GFR (mL/min/1.73 m2) ?| With Kidney Damage ?| ?Without Kidney Damage+ --------+ --------+ +| ?>90 ?| ?Stage one ?| ? Normal ?+ ---+ ---+ -------+| ?60-89 ?| ?Stage two ?| ? Decreased GFR ? + --+ --+ ------+| ?30-59 ?| ?Stage three ?| ? Stage three ? + --+ --+ ------+| ?15-29 ?| ?Stage four ? | ? Stage four ?+ ---+ ---+ -------+| ?<15 (or dialysis) ? ?| ?Stage five ? | ? Stage five ?+ ---+ ---+ -------+ *Each stage assumes the associated GFR level has been in effect for at least three months. ?Stages 1 to 5, with or without kidney disease, indicate chronic kidney disease. Notes: Determination of stages one and two (with eGFR >59mL/min/1.73 m2) requires estimation of kidney damage for at least three months as defined by structural or functional abnormalities of the kidney, manifested by either:Pathological abnormalities or Markers of kidney damage (including abnormalities in the composition of the blood or urine or abnormalities in imaging tests). Lab Interpretation Abnormal (test code = 75972-6) [facility]2020-08-22 12:15:00 Test Item Value Reference Range Interpretation Comments MAGNESIUM (test code = 4176915635) 2.1 mg/dL 1.7-2.4 Lab Interpretation (test code = Normal 92055-8) [facility]2020-08-22 12:15:00 Test Item Value Reference Range Interpretation Comments PHOSPHORUS (test code = 8457620130) 4.2 mg/dL 2.5-5 Lab Interpretation (test code = Normal 25574-2) [facility] WITH [id number] 11:49:00 Test Item Value Reference Range Interpretation Comments WBC (test code = See_Comment H [Automated 6690-2) message] The system which generated this result transmit dain reference range : 4.20 - 10.70 10*3/?L. The reference range was not used to interpret this result as normal/abnormal . RBC (test code = See_Comment L [Automated 789-8) message] The system which generated this result transmit dain reference range : 4.26 - 5.52 10*6/?L. The reference range was not used to interpret this result as normal/abnormal . HGB (test code = 9.9 g/dL 12.2-16.4 L 718-7) HCT (test code = 30.6 % 38.4-49.3 L 4544-3) MCV (test code = 87.2 fL 81.7-95.6 787-2) MCH (test code = 28.2 pg 26.1-32.7 785-6) MCHC (test code = 32.4 g/dL 31.2-35 786-4) RDW-SD (test code = 48.1 fL 38.5-51.6 69184-3) RDW-CV (test code = 15.1 % 12.1-15.4 788-0) PLT (test code = See_Comment H [Automated 777-3) message] The system which generated this result transmit dain reference range : 150 - 328 10*3/ ?L. The reference range was not u sed to interpret th is result as normal/abnormal . MPV (test code = 10.7 fL 9.8-13 00513-1) NRBC/100 WBC (test See_Comment [Automat ed code = 3421169369) message] The system which generated this result transmit dain reference range : 0.0 - 10.0 /100 WBCs. The reference range was not used to interpret this result as normal/abnormal . NRBC x10^3 (test code <0.01 See_Comment [Auto mated = 5315891230) message] The system which generated this result transmit dain reference range : 10*3/?L. The reference range was not used to interpret this result as normal/abnormal . GRAN MAT (NEUT) % 84.4 % (test code = 770-8) IMM GRAN % (test code 1.10 % = 7662071445) LYMPH % (test code = 7.4 % 736-9) MONO % (test code = 6.8 % 5905-5) EOS % (test code = 0.1 % 713-8) BASO % (test code = 0.2 % 706-2) GRAN MAT x10^3(ANC) 13.45 10*3/uL 1.99-6.95 H (test code = 4797785767) IMM GRAN x10^3 (test 0.18 10*3/uL 0-0.06 H code = 0409889450) LYMPH x10^3 (test code 1.18 10*3/uL 1.09-3.23 = 731-0) MONO x10^3 (test code 1.09 10*3/uL 0.36-1.02 H = 742-7) EOS x10^3 (test code = <0.03 0.06-0.53 L 711-2) BASO x10^3 (test code 0.03 10*3/uL 0.01-0.09 = 704-7) Lab Interpretation Abnormal (test code = 72713-8) [facility] TOTAL BODY [id number] 01:27:00 Test Item Value Reference Range Interpretation Comments LDH BF (test code = >6450 U/L 2737132729) UNSPUN BODY FLUID Yellow COLOR (test code = 0336534253) UNSPUN BODY FLUID Turbid CLARITY (test code = 9279939865) SPUN BODY FLUID Yellow COLOR (test code = 1181201120) SPUN BODY FLUID Clear CLARITY (test code = 1373139155) Sediment (test code The sediment volume is 0.1 = 9374593643) mLs of the total fluid volume of 5mLs and its color is Red/White. GILBERTO (test code = Test developed and GILBERTO) characteristics determined by [facility] Laboratory Services. [facility] (NA, K, CL, CO2, GLUCOSE, BUN, CREATININE, CA)2020-04-14 00:15:00 Test Item Value Reference Range Interpretation Comments NA (test code = 132 mmol/L 135-145 L 1165166004) K (test code = 5.3 mmol/L 3.5-5 H 8236446017) CL (test code = 105 mmol/L 98-108 5494277900) CO2 TOTAL (test code = 20 mmol/L 23-31 L 3853068750) AGAP (test code = 2-16 4299874320) BUN (test code = 14 mg/dL 7-23 0080104407) GLUCOSE (test code = 280 mg/dL 70-110 H 4038578599) CREATININE (test code = 0.75 mg/dL 0.6-1.25 7989435656) CALCIUM (test code = 7.4 mg/dL 8.6-10.6 L 4089604388) eGFR Calculation mL/min/1.73m2 (Non-) (test code = 6491519054) eGFR Calculation mL/min/1.73m2 () (test code = 2439554146) GILBERTO (test code = GILBERTO) Association of Glomerular Filtration Rate (GFR) and Staging of Kidney Disease* + --+ --+ ------+| GFR (mL/min/1.73 m2) ?| With Kidney Damage ?| ?Without Kidney Damage+ --------+ --------+ +| ?>90 ?| ?Stage one ?| ? Normal ?+ ---+ ---+ -------+| ?60-89 ?| ?Stage two ?| ? Decreased GFR ? + --+ --+ ------+| ?30-59 ?| ?Stage three ?| ? Stage three ? + --+ --+ ------+| ?15-29 ?| ?Stage four ? | ? Stage four ?+ ---+ ---+ -------+| ?<15 (or dialysis) ? ?| ?Stage five ? | ? Stage five ?+ ---+ ---+ -------+ *Each stage assumes the associated GFR level has been in effect for at least three months. ?Stages 1 to 5, with or without kidney disease, indicate chronic kidney disease. Notes: Determination of stages one and two (with eGFR >59mL/min/1.73 m2) requires estimation of kidney damage for at least three months as defined by structural or functional abnormalities of the kidney, manifested by either:Pathological abnormalities or Markers of kidney damage (including abnormalities in the composition of the blood or urine or abnormalities in imaging tests). Lab Interpretation Abnormal (test code = 79081-3) [facility] WITHOUT [id number] 00:01:00 Test Item Value Reference Range Interpretation Comments WBC (test code = 6690-2) See_Comment H [A utomated message] The system [employer] generated this result transmit dain reference range : 4.20 - 10.70 10*3/?L. The reference range was not used to interpret this result as normal/abnormal . RBC (test code = 789-8) See_Comment L [Au tomated message] The system [employer] generated this result transmit dain reference range : 4.26 - 5.52 10* 6/?L. The reference r meredith was not used to interpret this result as normal/abnormal . HGB (test code = 718-7) 9.9 g/dL 12.2-16.4 L HCT (test code = 4544-3) 29.9 % 38.4-49.3 L MCH (test code = 785-6) 29.0 pg 26.1-32.7 MCV (test code = 787-2) 87.7 fL 81.7-95.6 MCHC (test code = 786-4) 33.1 g/dL 31.2-35 PLT (test code = 777-3) See_Comment H [Au tomated message] The system [employer] generated this result transmit dain reference range : 150 - 328 10*3/?L. The reference range was not used to interpret this result as normal/abnormal . MPV (test code = 10.2 fL 9.8-13 54217-4) RDW-CV (test code = 15.3 % 12.1-15.4 788-0) RDW-SD (test code = 49.1 fL 38.5-51.6 20279-8) NRBC x10^3 (test code = <0.01 See_Comment [Au tomated message] 4673234988) The system [employer] generated this result transmit dain reference range : 10*3/?L. The reference range was not used to interpret this result as normal/abnormal . NRBC/100 WBC (test code See_Comment [Au tomated message] = 9898977914) The system [facility] generated this result transmit dain reference range : 0.0 - 10.0 /100 WBC s. The reference r meredith was not used to interpret this result as normal/abnormal . IPF % (test code = 0789293931) Lab Interpretation (test Abnormal code = 06734-1) [facility] Center[facility] DIRECT [id number] 23:40:00 Test Item Value Reference Range Interpretation Comments BF COLOR Yellow (test code = 2528174842) BF WBC Count See_Comment [Automated (test code = message] The sy stem 8688198743) which generated this result transmitted reference range : /?L. The refere nce range was not u sed to interpret th is result as normal/abnormal . BF RBC Count <3000 See_Comment [Automated (test code = message] The sy stem 0605762473) which generated this result transmitted reference range : /?L. The refere nce range was not u sed to interpret th is result as normal/abnormal . GILBERTO (test The reference range code = GILBERTO) and other method performance specifications have not been established for this body fluid. ?The test results must be integrated into the clinical context for interpretation. [facility] MANUAL [id number] 23:40:00 Test Item Value Reference Range Interpretation Comments BF SEGS (test code 99 % = 4251832903) BF LYMPHS (test 1 % code = 3819088250) #CELS CNTD (test code = 0486593076) GILBERTO (test code = Possible intracellular GILBERTO) bacteria. [facility] CenterGLU[facility]SE BODY [id number] 23:17:00 Test Item Value Reference Range Interpretation Comments GLUCOSE BF (test <20 mg/dL code = 4552645975) UNSPUN BODY FLUID Yellow COLOR (test code = 5695519940) UNSPUN BODY FLUID Turbid CLARITY (test code = 8124622128) SPUN BODY FLUID Yellow COLOR (test code = 8668320315) SPUN BODY FLUID Clear CLARITY (test code = 2756461844) Sediment (test code The sediment volume is 0.1 = 9198601820) mLs of the total fluid volume of 5mLs and its color is Red/White. GILBERTO (test code = Test developed and GILBERTO) characteristics determined by [facility] Laboratory Services. [facility] [id number] 22:52:00 Test Item Value Reference Range Interpretation Comments T.PROT BF (test 3000.0 mg/dL code = 3102803742) UNSPUN BODY FLUID Yellow COLOR (test code = 5427626156) UNSPUN BODY FLUID Turbid CLARITY (test code = 2075009325) SPUN BODY FLUID Yellow COLOR (test code = 6289130486) SPUN BODY FLUID Clear CLARITY (test code = 8584941962) Sediment (test code The sediment volume is 0.1 = 0907140413) mLs of the total fluid volume of 5mLs and its color is Red/White. GILBERTO (test code = Test developed and GILBERTO) characteristics determined by [facility] Laboratory Services. [facility] [id number] 19:44:00 Test Item Value Reference Range Interpretation Comments URINE CULTURE (test No aerobic growth (< code = 630-4) 1000 CFU/mL) [facility] NE[facility] BLO[facility] PATHOGENS DNA [id number] 13:23:00 Test Item Value Reference Range Interpretation Comments Enterobacter species Positive Negative A (test code = 73480-2) GILBERTO (test code = GILBERTO) See blood culture result for additional information. ?Testing included eight identification and six resistance marker targets. Lab Interpretation Abnormal (test code = 39121-3) [facility] WITH [id number] 12:43:00 Test Item Value Reference Range Interpretation Comments WBC (test code = See_Comment H [Automated 6690-2) message] The system which generated this result transmit dain reference range : 4.20 - 10.70 10*3/?L. The reference range was not used to interpret this result as normal/abnormal . RBC (test code = See_Comment L [Automated 789-8) message] The system which generated this result transmit dain reference range : 4.26 - 5.52 10*6/?L. The reference range was not used to interpret this result as normal/abnormal . HGB (test code = 9.7 g/dL 12.2-16.4 L 718-7) HCT (test code = 29.9 % 38.4-49.3 L 4544-3) MCV (test code = 88.2 fL 81.7-95.6 787-2) MCH (test code = 28.6 pg 26.1-32.7 785-6) MCHC (test code = 32.4 g/dL 31.2-35 786-4) RDW-SD (test code = 49.8 fL 38.5-51.6 43827-6) RDW-CV (test code = 15.3 % 12.1-15.4 788-0) PLT (test code = See_Comment H [Automated 777-3) message] The system which generated this result transmit dain reference range : 150 - 328 10*3/ ?L. The reference range was not u sed to interpret th is result as normal/abnormal . MPV (test code = 10.7 fL 9.8-13 80905-1) NRBC/100 WBC (test See_Comment [Automat ed code = 6173046835) message] The system which generated this result transmit dain reference range : 0.0 - 10.0 /100 WBCs. The reference range was not used to interpret this result as normal/abnormal . NRBC x10^3 (test code <0.01 See_Comment [Auto mated = 2075385610) message] The system which generated this result transmit dain reference range : 10*3/?L. The reference range was not used to interpret this result as normal/abnormal . GRAN MAT (NEUT) % 81.3 % (test code = 770-8) IMM GRAN % (test code 1.40 % = 4854743390) LYMPH % (test code = 8.0 % 736-9) MONO % (test code = 8.9 % 5905-5) EOS % (test code = 0.2 % 713-8) BASO % (test code = 0.2 % 706-2) GRAN MAT x10^3(ANC) 10.74 10*3/uL 1.99-6.95 H (test code = 4013864952) IMM GRAN x10^3 (test 0.18 10*3/uL 0-0.06 H code = 0651719501) LYMPH x10^3 (test code 1.06 10*3/uL 1.09-3.23 L = 731-0) MONO x10^3 (test code 1.17 10*3/uL 0.36-1.02 H = 742-7) EOS x10^3 (test code = <0.03 0.06-0.53 L 711-2) BASO x10^3 (test code <0.03 0.01-0.09 = 704-7) Lab Interpretation Abnormal (test code = 07979-0) [facility] METABOLIC PANEL (NA, K, CL, CO2, GLUCOSE, BUN, CREATININE, CA)2020-04-13 11:57:00 Test Item Value Reference Range Interpretation Comments NA (test code = 134 mmol/L 135-145 L 2107161382) K (test code = 4.6 mmol/L 3.5-5 2718192877) CL (test code = 106 mmol/L 98-108 0280691154) CO2 TOTAL (test code = 23 mmol/L 23-31 7667346256) AGAP (test code = 2-16 4703624257) BUN (test code = 14 mg/dL 7-23 8983965986) GLUCOSE (test code = 106 mg/dL 70-110 3390872105) CREATININE (test code = 0.84 mg/dL 0.6-1.25 5574073607) CALCIUM (test code = 7.7 mg/dL 8.6-10.6 L 2659534516) eGFR Calculation mL/min/1.73m2 (Non-) (test code = 8117662150) eGFR Calculation mL/min/1.73m2 () (test code = 7943085651) GILBERTO (test code = GILBERTO) Association of Glomerular Filtration Rate (GFR) and Staging of Kidney Disease* + --+ --+ ------+| GFR (mL/min/1.73 m2) ?| With Kidney Damage ?| ?Without Kidney Damage+ --------+ --------+ +| ?>90 ?| ?Stage one ?| ? Normal ?+ ---+ ---+ -------+| ?60-89 ?| ?Stage two ?| ? Decreased GFR ? + --+ --+ ------+| ?30-59 ?| ?Stage three ?| ? Stage three ? + --+ --+ ------+| ?15-29 ?| ?Stage four ? | ? Stage four ?+ ---+ ---+ -------+| ?<15 (or dialysis) ? ?| ?Stage five ? | ? Stage five ?+ ---+ ---+ -------+ *Each stage assumes the associated GFR level has been in effect for at least three months. ?Stages 1 to 5, with or without kidney disease, indicate chronic kidney disease. Notes: Determination of stages one and two (with eGFR >59mL/min/1.73 m2) requires estimation of kidney damage for at least three months as defined by structural or functional abnormalities of the kidney, manifested by either:Pathological abnormalities or Markers of kidney damage (including abnormalities in the composition of the blood or urine or abnormalities in imaging tests). Lab Interpretation Abnormal (test code = 07377-4) [facility] 11:57:00 Test Item Value Reference Range Interpretation Comments MAGNESIUM (test code = 6253362818) 2.1 mg/dL 1.7-2.4 Lab Interpretation (test code = Normal 98463-2) [facility]2020-[facility]-21 11:57:00 Test Item Value Reference Range Interpretation Comments PHOSPHORUS (test code = 1660591472) 3.4 mg/dL 2.5-5 Lab Interpretation (test code = Normal 14087-1) [facility] CenterCT [facility] W [id number] 00:22:08 1. ?Multiple intraperitoneal collections as detailed above measuring up to26.7 cm. Marked peritoneal and mesenteric fat stranding with trackinginflammatory fluid.2. 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 ?Wound dehiscence with an elongated 4.1 cm peripherally enhancingcollection, may represent a seroma or an abscess.4. ?Ascites and pneumoperitoneum.5. ?Hepatosplenomegaly.6. ?Partially visualized moderate bilateral pleural effusions. Critical Finding Reported to and acknowledged by Dr. Pennington of General surgery and thecolorectal team@ 5:20 PM, 04/12/2020. Multiple intra-abdominal fluid collection, ascites and pneumoperitoneum Failed communication attempts 0 Preliminary Report Dictated by Resident: Mathieu Johnson MD., have reviewed this study and agree with the abovereport.EXAM: CT ABDOMEN PELVIS W CONTRAST HISTORY: Abd pain, fever, abscess suspected IV Contrast, no PO Contrast COMPARISON: CT abdomen and pelvis with contrast 03/30/2020, 03/25/2020 DOSE: DLP-590.09 mGy-cm TECHNIQUE AND FINDINGS: Contiguous axial imaging from the level of the lungbases through the pubic symphysis was performed after the uncomplicatedadministration of 100 mL of intravenous Omnipaque contrast material. Coronal and sagittal reconstructions were obtained. Auto mA and/or iterative reconstruction were used to reduce radiationdose. FINDINGS: LOWER THORAX: Bilateral moderate pleural effusions with adjacentatelectasis. No cardiomegaly. LIVER: ?The liver is markedly enlarged measuring 28.8 cm. Subcapsular hypodensities most likely represents loculated fluid. No focal hepaticlesions . ?Normal contour. GALLBLADDER AND BILIARY TREE: No biliary ductal dilation. The gallbladderis decompressed. SPLEEN: The spleen measures 14.1 cm, splenomegaly.A 6.8 cm hypodensecollection posterior to the inferior lateral pole of the spleen mayrepresent a loculated fluid collection. PANCREAS: No ductal dilation or masses. ADRENAL GLANDS: No adrenal nodules. KIDNEYS: No hydronephrosis, stones, or masses. PERITONEUM AND RETROPERITONEUM: . Multiple intraperitoneal collections asfollow:1. ?A large 9.4 x 26.6 x 26.7 cm air and fluid containing collection withanair-fluid level and thin enhancing wall is seen in the anterior upperabdomen. 2. ?Right-sided peripherally enhancing 7.7 x 4.5 x 6.2 cm collection. Thiscommunicates superiorly with the previously described collection (sagittalimage 106).3. ?Left subphrenic air-containing fluid collection is not fully evaluated.This appears to communicate inferiorly with the previously described largelayering anteriorcollection (collection is appreciated on 602:51).4. ?Multiple perihepatic collections are noted, measuring up to 2.8 cm(sagittal image 101).5. ?A 2.6 x 8.0 x 6.5 cm perisplenic collection is noted posterior to thespleen (sagittal image 54. There is marked mesenteric and peritoneal fat stranding with trackinginflammatory fluid. Free fluid is noted between bowel loops in the leftlower quadrant (3:72. Foci of free air noted in the pelvis (3:113 LYMPH NODES: 1.3 cm portacaval lymph node, similar to prior. Prominentmesenteric lymph nodes measure up to 0.9 cm GI TRACT: Interval changes of total colectomy. Fluid-filled Aaron'spouch with mild concentric wall thickening. Left lower quadrant ileostomy .Left lower quadrant approach percutaneous ?drain traverses the peritoneumand terminates in the right lower quadrant ileostomy (3:100, sagittal image94). The jejunum is diffusely thickened. Fluid-filled ileal loop with thickenedwalls. Findings may be reactive to adjacent inflammatory changes. PELVIS/BLADDER: The bladder is well distended. A tiny focus of air in theurinary bladder is indeterminate but may be related to recentcatheterization. Nonspecific prostatic wall calcification.. VESSELS: Left common iliac atherosclerotic calcifications. BONES AND SOFT TISSUES: No suspicious lytic or sclerotic bonylesions.Midline anterior abdominal wall surgical defect with distraction of thewound ends, concerning for wound dehiscence.A 1.1 x 1.6 x 4.1 cm peripherally enhancing fluid collection is seen in themidline anterior abdominal wall just inferior to the wound defect (3:93) [facility], Radiant Results Inft User- 04/12/2020 7:23 PM CDTEXAM: CT ABDOMEN PELVIS W CONTRASTHISTORY: Abd pain, fever, abscess suspected IV Contrast, no PO ContrastCOMPARISON: CT abdomen and pelvis with contrast 03/30/2020, 03/25/2020DOSE: DLP-590.09 mGy-cmTECHNIQUE AND FINDINGS: Contiguous axial imaging from the level of the lungbases through the pubic symphysis was performed after the uncomplicatedadministration of 100 mL of intravenousOmnipaque contrast material. Coronal and sagittal reconstructions were obtained. Auto mA and/or iterative reconstruction were used to reduce radiationdose.FINDINGS:LOWER THORAX: Bilateral moderate pleural effusions with adjacentatelectasis. No cardiomegaly.LIVER: The liver is markedly enlarged measuring 28.8 cm. Subcapsular hypodensities most likely represents loculated fluid. No focal hepaticlesions. Normal contour.GALLBLADDER AND BILIARY TREE: No biliary ductal dilation. The gallbladderis decompressed.SPLEEN: The spleen measures 14.1 cm, splenomegaly. A 6.8 cm hypodensecollection posterior to the inferior lateral pole of the spleen mayrepresent a loculated fluid collection.PANCREAS: No ductal dilation or masses.ADRENAL GLANDS: No adrenal nodules.KIDNEYS: No hydronephrosis, stones, or masses.PERITONEUM AND RETROPERITONEUM: . Multiple intraperitoneal collections asfollow:1. A large 9.4 x 26.6 x26.7 cm air and fluid containing collection withan air-fluid level and thin enhancing wall is seen in the anterior upperabdomen. 2. Right-sided peripherally enhancing 7.7 x 4.5 x 6.2 cm collection. Thiscommunicates superiorly with the previously described collection (sagittalimage 106).3. Left subphrenic air-containing fluid collection is not fully evaluated.This appears to communicate inferiorly with the previously described largelayering anterior collection (collection is appreciated on 602:51).4.Multiple perihepatic collections are noted, measuring up to 2.8 cm(sagittal image 101).5. A 2.6 x 8.0 x 6.5 cm perisplenic collection is noted posterior to thespleen (sagittal image 54.There is marked mesenteric and peritoneal fat stranding with trackinginflammatory fluid. Free fluid is noted between bowel loops in the leftlower quadrant (3:72.Foci of free air noted in the pelvis (3:113LYMPH NODES: 1.3 cm portacaval lymph node, similar to prior. Prominentmesenteric lymph nodes measure up to 0.9 cmGITRACT: Interval changes of total colectomy. Fluid-filled Aaron'spouch with mild concentric wall th ickening. Left lower quadrant ileostomy .Left lower quadrant approach percutaneous drain traverses the peritoneumand terminates in the right lower quadrant ileostomy (3:100, sagittal image94).The jejunum is diffusely thickened. Fluid-filled ileal loop with thickenedwalls. Findings may be reactive to ad jacent inflammatory changes.PELVIS/BLADDER: The bladder is well distended. A tiny focus of air in theurinary bladder is indeterminate but may be related to recentcatheterization. Nonspecific prostatic wall calcification..VESSELS: Left common iliac atherosclerotic calcifications.BONES AND SOFT TISSUES:No suspicious lytic or sclerotic bony lesions.Midline anterior abdominal wall surgical defect with distraction of thewound ends, concerning for wound dehiscence.A 1.1 x 1.6 x 4.1 cm peripherally enhancing fluid collection is seen in themidline anterior abdominal wall just inferior to the wound defect (3:93)IMPRESSION1. Multiple intraperitoneal collections as detailed above measuring up to26.7 cm. Marked peritoneal and mesenteric fat stranding with trackinginflammatory fluid.2. 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 Wound dehiscence with an elongated 4.1 cm peripherally enhancingcollection, may represent a seroma or an abscess.4. Ascites and pne umoperitoneum.5. Hepatosplenomegaly.6. Partially visualized moderate bilateral pleural effusions.Critical FindingReported to and acknowledged by Dr. Pennington of General surgery and thecolorectal team@ 5:20PM, 04/12/2020.Multiple intra- abdominal fluid collection, ascites and pneumoperitoneum Failed communication attempts 0Preliminary Report Dictated by Resident: Sierra Lamar, Mathieu Chapa MD., have reviewed this study and agree with the abovereport. [facility] 23:20:00 Test Item Value Reference Range Interpretation Comments APPEARANCE (test code = Clear Clear 0355163081) COLOR (test code = Yellow Yellow 0906915362) PH (test code = 4.8-8.0 3308127733) SP GRAVITY (test code = 1.003-1.030 3407530040) GLU U QUAL (test code = Normal Normal 1515122059) BLOOD (test code = Negative Negative 2684764174) KETONES (test code = Negative Negative 8060669752) PROTEIN (test code = 30 mg/dL Negative A 2887-8) UROBILIN (test code = Normal Normal 3773059935) BILIRUBIN (test code = Negative Negative 3557608936) NITRITE (test code = Negative Negative 1859980312) LEUK ROGER (test code = Negative Negative 8734241472) RBC/HPF (test code = See_Comment [Autom ated message] 1476699046) The system [employer] generated this result transmitted ref erence range: 0 - 3 HP F. The reference range was not used to int erpret this result as normal/abnormal . WBC/HPF (test code = <1 See_Comment [Autom ated message] 1122841276) The system [employer] generated this result transmitted ref erence range: 0 - 5 HP F. The reference range was not used to int erpret this result as normal/abnormal . BACTERIA (test code = Negative Negative 3685405086) MUCOUS (test code = Slight Negative LPF A 1252504053) SQ EPITH (test code = See_Comment [Auto mated message] 8126733921) The system [employer] generated this result transmitted ref erence range: <=2 HPF. The reference range was not used to int erpret this result as normal/abnormal . Lab Interpretation (test Abnormal code = 82976-0) [facility] WITH [id number] 12:08:00 Test Item Value Reference Range Interpretation Comments WBC (test code = See_Comment H [Automated 6690-2) message] The sy stem which generated this result transmitted reference range : 4.20 - 10.70 10*3/?L. The reference range was not used to interpret this result as normal/abnormal . RBC (test code = See_Comment L [Automated 789-8) message] The sy stem which generated this result transmitted reference range : 4.26 - 5.52 10*6/?L. The reference range was not used to interpret this result as normal/abnormal . HGB (test code = 10.8 g/dL 12.2-16.4 L 718-7) HCT (test code = 33.0 % 38.4-49.3 L 4544-3) MCV (test code = 87.1 fL 81.7-95.6 787-2) MCH (test code = 28.5 pg 26.1-32.7 785-6) MCHC (test code = 32.7 g/dL 31.2-35 786-4) RDW-SD (test code = 48.9 fL 38.5-51.6 91309-4) RDW-CV (test code = 15.4 % 12.1-15.4 788-0) PLT (test code = See_Comment [Automated 777-3) message] The sy stem which generated this result transmitted reference range : 150 - 328 10*3/ ?L. The reference r meredith was not used to interpret this result as normal/abnormal . MPV (test code = 11.2 fL 9.8-13 09239-3) NRBC/100 WBC (test See_Comment [Automat ed code = 0180482702) message] The system which generated this result transmitted reference range : 0.0 - 10.0 /100 WBCs. The refer ence range was not u sed to interpret th is result as normal/abnormal . NRBC x10^3 (test code <0.01 See_Comment [Auto mated = 2365846600) message] The s ystem which generated this result transmitted reference range : 10*3/?L. The reference range was not used to interpret this result as normal/abnormal . GRAN MAT (NEUT) % 79.9 % (test code = 770-8) IMM GRAN % (test code 1.30 % = 3822052222) LYMPH % (test code = 7.4 % 736-9) MONO % (test code = 11.0 % 5905-5) EOS % (test code = 0.2 % 713-8) BASO % (test code = 0.2 % 706-2) GRAN MAT x10^3(ANC) 9.56 10*3/uL 1.99-6.95 H (test code = 4014300370) IMM GRAN x10^3 (test 0.15 10*3/uL 0-0.06 H code = 5034383328) LYMPH x10^3 (test code 0.89 10*3/uL 1.09-3.23 L = 731-0) MONO x10^3 (test code 1.32 10*3/uL 0.36-1.02 H = 742-7) EOS x10^3 (test code = <0.03 0.06-0.53 L 711-2) BASO x10^3 (test code <0.03 0.01-0.09 = 704-7) Lab Interpretation Abnormal (test code = 50518-7) [facility] METABOLIC PANEL (NA, K, CL, CO2, GLUCOSE, BUN, CREATININE, CA)2020-04-12 10:43:00 Test Item Value Reference Range Interpretation Comments NA (test code = 133 mmol/L 135-145 L 6629516511) K (test code = 4.3 mmol/L 3.5-5 4708978424) CL (test code = 104 mmol/L 98-108 8847143714) CO2 TOTAL (test code = 22 mmol/L 23-31 L 4309968175) AGAP (test code = 2-16 2791961079) BUN (test code = 20 mg/dL 7-23 2953575190) GLUCOSE (test code = 108 mg/dL 70-110 6486430094) CREATININE (test code = 0.77 mg/dL 0.6-1.25 0042752259) CALCIUM (test code = 8.1 mg/dL 8.6-10.6 L 7355280798) eGFR Calculation mL/min/1.73m2 (Non-) (test code = 6248368050) eGFR Calculation mL/min/1.73m2 () (test code = 1050370774) GILBERTO (test code = GILBERTO) Association of Glomerular Filtration Rate (GFR) and Staging of Kidney Disease* + --+ --+ ------+| GFR (mL/min/1.73 m2) ?| With Kidney Damage ?| ?Without Kidney Damage+ --------+ --------+ +| ?>90 ?| ?Stage one ?| ? Normal ?+ ---+ ---+ -------+| ?60-89 ?| ?Stage two ?| ? Decreased GFR ? + --+ --+ ------+| ?30-59 ?| ?Stage three ?| ? Stage three ? + --+ --+ ------+| ?15-29 ?| ?Stage four ? | ? Stage four ?+ ---+ ---+ -------+| ?<15 (or dialysis) ? ?| ?Stage five ? | ? Stage five ?+ ---+ ---+ -------+ *Each stage assumes the associated GFR level has been in effect for at least three months. ?Stages 1 to 5, with or without kidney disease, indicate chronic kidney disease. Notes: Determination of stages one and two (with eGFR >59mL/min/1.73 m2) requires estimation of kidney damage for at least three months as defined by structural or functional abnormalities of the kidney, manifested by either:Pathological abnormalities or Markers of kidney damage (including abnormalities in the composition of the blood or urine or abnormalities in imaging tests). Lab Interpretation Abnormal (test code = 39617-4) [facility] 10:43:00 Test Item Value Reference Range Interpretation Comments MAGNESIUM (test code = 8251757877) 2.0 mg/dL 1.7-2.4 Lab Interpretation (test code = Normal 88194-0) [facility] 10:43:00 Test Item Value Reference Range Interpretation Comments PHOSPHORUS (test code = 3701341170) 4.3 mg/dL 2.5-5 Lab Interpretation (test code = Normal 34511-3) [facility] CULTURE [id number] 04:01:00 Test Item Value Reference Range Interpretation Comments Blood Culture-Aerobic No organisms No growth Previo us (test code = 54941-9) isolated prelim inary verified result was Culture In Progress on 04/07/2020 at 02 CDTPrevious preliminary verified result was No growth a t 24 hours on 04/07/2020 at 23 CDTPrevious preliminary verified result was No growth a t 48 hours on 04/08/2020 at 15 09 CDTPrevious preliminary verified result was No growth a t 72 hours on 04/09/2020 at 23 CDT Blood No organisms No growth Previous Culture-Anaerobic isolated preliminar y (test code = 45728-8) verifi ed result was Culture In Progress on 04/07/2020 at 09 24 CDTPrevious preliminary verified result was No growth a t 24 hours on 04/07/2020 at 15 09 CDTPrevious preliminary verified result was No growth a t 48 hours on 04/08/2020 at 23 CDTPrevious preliminary verified result was No growth a t 72 hours on 04/09/2020 at 23 01 CDT Lab Interpretation Normal (test code = 33152-5) [facility] CULTURE [id number] 04:01:00 Test Item Value Reference Range Interpretation Comments Blood Culture-Aerobic No organisms No growth Previo us (test code = 15365-9) isolated prelim inary verified result was Culture In Progress on 04/07/2020 at 09 24 CDTPrevious preliminary verified result was No growth a t 24 hours on 04/07/2020 at 23 CDTPrevious preliminary verified result was No growth a t 48 hours on 04/08/2020 at 23 CDTPrevious preliminary verified result was No growth a t 72 hours on 04/09/2020 at 23 01 CDT Blood No organisms No growth Previous Culture-Anaerobic isolated preliminar y (test code = 90371-3) verifi ed result was Culture In Progress on 04/07/2020 at 02 CDTPrevious preliminary verified result was No growth a t 24 hours on 04/07/2020 at 23 CDTPrevious preliminary verified result was No growth a t 48 hours on 04/08/2020 at 23 01 CDTPrevious preliminary verified result was No growth a t 72 hours on 04/09/2020 at 23 01 CDT Lab Interpretation Normal (test code = 30007-5) [facility] METABOLIC PANEL (NA, K, CL, CO2, GLUCOSE, BUN, CREATININE, CA)2020-04-11 10:13:00 Test Item Value Reference Range Interpretation Comments NA (test code = 138 mmol/L 135-145 4626405440) K (test code = 3.9 mmol/L 3.5-5 6300838987) CL (test code = 106 mmol/L 98-108 8083008226) CO2 TOTAL (test code = 27 mmol/L 23-31 5599783942) AGAP (test code = 2-16 9318066786) BUN (test code = 24 mg/dL 7-23 H 6710919727) GLUCOSE (test code = 97 mg/dL 70-110 7897219073) CREATININE (test code = 0.63 mg/dL 0.6-1.25 7458819034) CALCIUM (test code = 8.1 mg/dL 8.6-10.6 L 0914499147) eGFR Calculation mL/min/1.73m2 (Non-) (test code = 9787848100) eGFR Calculation mL/min/1.73m2 () (test code = 5457127779) GILBERTO (test code = GILBERTO) Association of Glomerular Filtration Rate (GFR) and Staging of Kidney Disease* + --+ --+ ------+| GFR (mL/min/1.73 m2) ?| With Kidney Damage ?| ?Without Kidney Damage+ --------+ --------+ +| ?>90 ?| ?Stage one ?| ? Normal ?+ ---+ ---+ -------+| ?60-89 ?| ?Stage two ?| ? Decreased GFR ? + --+ --+ ------+| ?30-59 ?| ?Stage three ?| ? Stage three ? + --+ --+ ------+| ?15-29 ?| ?Stage four ? | ? Stage four ?+ ---+ ---+ -------+| ?<15 (or dialysis) ? ?| ?Stage five ? | ? Stage five ?+ ---+ ---+ -------+ *Each stage assumes the associated GFR level has been in effect for at least three months. ?Stages 1 to 5, with or without kidney disease, indicate chronic kidney disease. Notes: Determination of stages one and two (with eGFR >59mL/min/1.73 m2) requires estimation of kidney damage for at least three months as defined by structural or functional abnormalities of the kidney, manifested by either:Pathological abnormalities or Markers of kidney damage (including abnormalities in the composition of the blood or urine or abnormalities in imaging tests). Lab Interpretation Abnormal (test code = 47694-1) [facility]13[facility]00 Test Item Value Reference Range Interpretation Comments MAGNESIUM (test code = 5068049687) 1.8 mg/dL 1.7-2.4 Lab Interpretation (test code = Normal 49834-3) [facility] 10:13:00 Test Item Value Reference Range Interpretation Comments PHOSPHORUS (test code = 2055341623) 3.6 mg/dL 2.5-5 Lab Interpretation (test code = Normal 57126-8) [facility] [id number] 10:06:00 Test Item Value Reference Range Interpretation Comments WBC (test code = See_Comment [Automated 6690-2) message] The sy stem which generated this result transmitted reference range : 4.20 - 10.70 10*3/?L. The reference range was not used to interpret this result as normal/abnormal . RBC (test code = See_Comment L [Automated 239-8) message] The sy stem which generated this result transmitted reference range : 4.26 - 5.52 10*6/?L. The reference range was not used to interpret this result as normal/abnormal . HGB (test code = 8.7 g/dL 12.2-16.4 L 718-7) HCT (test code = 27.2 % 38.4-49.3 L 4544-3) MCV (test code = 87.5 fL 81.7-95.6 787-2) MCH (test code = 28.0 pg 26.1-32.7 785-6) MCHC (test code = 32.0 g/dL 31.2-35 786-4) RDW-SD (test code = 48.9 fL 38.5-51.6 81576-5) RDW-CV (test code = 15.3 % 12.1-15.4 788-0) PLT (test code = See_Comment [Automated 777-3) message] The sy stem which generated this result transmitted reference range : 150 - 328 10*3/ ?L. The reference r meredith was not used to interpret this result as normal/abnormal . MPV (test code = 11.7 fL 9.8-13 95002-4) NRBC/100 WBC (test See_Comment [Automat ed code = 4537949936) message] The system which generated this result transmitted reference range : 0.0 - 10.0 /100 WBCs. The refer ence range was not u sed to interpret th is result as normal/abnormal . NRBC x10^3 (test code <0.01 See_Comment [Auto mated = 9138188890) message] The s ystem which generated this result transmitted reference range : 10*3/?L. The reference range was not used to interpret this result as normal/abnormal . GRAN MAT (NEUT) % 75.6 % (test code = 770-8) IMM GRAN % (test code 1.10 % = 5129871349) LYMPH % (test code = 10.5 % 736-9) MONO % (test code = 11.0 % 5905-5) EOS % (test code = 1.5 % 713-8) BASO % (test code = 0.3 % 706-2) GRAN MAT x10^3(ANC) 5.56 10*3/uL 1.99-6.95 (test code = 4247913283) IMM GRAN x10^3 (test 0.08 10*3/uL 0-0.06 H code = 8897023594) LYMPH x10^3 (test code 0.77 10*3/uL 1.09-3.23 L = 731-0) MONO x10^3 (test code 0.81 10*3/uL 0.36-1.02 = 742-7) EOS x10^3 (test code = 0.11 10*3/uL 0.06-0.53 711-2) BASO x10^3 (test code <0.03 0.01-0.09 = 704-7) TOXIC CHANGES (test Present A code = 803-7) Lab Interpretation Abnormal (test code = 94007-1) [facility] [id number] 22:00:00 Test Item Value Reference Range Interpretation Comments Case Report (test code Surgical Pathology ? ? = [id number]) ?Case: [id number] ? Authorizing Provider: ?Eliot, MD Juventino ? Collected: ? 04/06/2020 1012 ?Ordering Location: ? ? [facility] OR ? Received: ?04/06/2020 1146 ? Department ? Pathologist: ? Misael, MD Shaneka ? Specimen: ? ?SOFT TISSUE, OTHER, ileo rectal anastamosis ? Final Diagnosis (test i1eknTCyCTYvz6qbOFEoiB code = 2100576120) FuZzEwMzNcZnRuYmpcdWMx KJxdubDdRAlry7JmQ6YoSf AwMFxhbnNpXGRlZmxhbmcx ANDwHNO4xfFfJTMnFTcdJE DkXKfjDc3hfJOosKfoPnVu UVMsp5heodHVcmszqUg5n1 hjTRZhKiZ4fCMmXFneN9rq vbUcpSLrEIZoLIw4rV23JS CzqY0ivUOyYArzodOcNlW4 EZvdSCVdWxO8KPToyMDwWU ZvD7saMNBtNFztUVOjLOnz xDCjTRK9oGckr6F4jETgiX ZdlIqiDmOsDyVhNVKTh8Ip DOj6yEmpM6BsQJZbVwT1wG QgUGFyYWdyYXBoIEZvbnQ7 dF54QUbsceG0lEZji3Mlh8 8iu363xQ9dyROaVRP7ZPPt CNNejNUzHSBgJGP0ZGSryY JrA2znRBomMG6mynkyGEC8 MFxtYXJndDcyMFxtYXJnYj AwmQGqNEAepJhwMJibz743 WME3BdDzDX5qL1Rnr4X8iN 9maXRcZGVmdGFiNzIwXGZv na7slMVuUSymq8IeQMF3wg D0oYRiiZZtTDZaTZ11Luzu i9QsLyqsPXC5ALUxbfLmj9 Nqy6vtSaKocqNkS4ayE5Jk ZHJoZWFkXHBnYnJkcmZvb3 Nhi8EomPRecYn1d6egFBSj TNIfbSlyw5ysEIZ7HHFpU9 B6zJFwj4wjVSulFYGpeQW8 ydKsDRGyyNAyG3ZmxA2qMI vqBM2iehy9m2aeUsVmDX6o gbxla2kaAJtfMFQdNHI7Am DeHAXod5QssuslMrLos9Fh gRYlAKvzC71bc168OEHiwh ThZ5wkrHGognrmwHSwgnrl HIitszZ5VAJaXDZqCFdpER YxXGZzMjBcbGFuZzEwMzNc aGljaFxmMVxkYmNoXGYxXG mlV2uhNnRqMuXpQNneWQDy UX9mJ00KD49dNQgHGC2sAd AYTMWXUHMVCROSL24UP8gL OXFDCLRsLZPWZ73UPcDEZL QSFFONJ7RGQ589VWUveuKe AYVzOL2uJxACOJZUCMIVKS ZQQQKOSTVPRYABWSJoF1zF EDXXInFFS02KAuDNNZnAGe dBJW1CFWgQOeviHCzOWPLC NNsGQuinR8XXP2VRWOiAYV FORFxwYXIgICAgICAgICBQ CJILSN1VGWCMB2ntOTElDJ TxQGCfGIIOT9VCUSyAUhSH SLAATD3MTWFJPQPZWACLXP VccGFyXHBhclxwbGFpblxm MVxmczIyXGxhbmcxMDMzXG wpZ2fbYaNtKKYgyRubSDie a2AkKVHmXJQqMnwhklUkAZ BrB6vqgUklLYyfIOR0WD2r SM6PM7jPZRV3LeV3ZqAoHl XeWJD6ShYiXF2foKmxzW3q ZgAqQkJrOUqhVS6uKUDsC1 ghlARnUTLlQHZdE7reUvOm tE2gbTtdMAjhkoReTDPhbJ JyVDHulx30TBZ8UkWij4X0 APDqKgAkDMLfFC8xuKhzNU XgHL9hZKYiQ4jriT0wdps7 QwRuDWQsYxJ9ODTuiwS1Bk a9CUTuJUuqu6skt3NfB3Fb bHRlyRa6t6jdYRYgBeU5cO GtXRxzR1plrmGxfUHdWQJs BVi1gShdLuUpILJjz3tzgh BcZmNoYXJzZXQwIENhbGli oca6oZ48AYWxjT3acXToZT junwCcGtN9JEpmWRRiAvS1 GJReuTDrKGSnI4riWKUoSS fcJHFzKLmqrGRmBUD9zVht c9E6fQExxOJpyTnySeTxQy DfPYWKf0CkZHq2eRntA8Qt CCTrCgQ1pNXtNCViMLziUP PvCGEuqiY9cB92JSkjanY6 mIKcl6Wbv92wr593tG2ucK QlEOC6UZKxPRAwnVBkTOXe TUJ4NSGqbLZsB8ceRBSwMY 9dsgtfIPypMJfsHINggTH5 GKXhrGKgO8RsNYOhCSbjJW Wfzcf2ZyYuVg0qtEPyyCvq XXlnf2kac7qmoTAfBls4XN LdCmInSabtYCsqg7Xtk3wp TWFile9sEIN9cOJbgJqca8 W3wURqMBCtvDXummXkKAAz AkR3XPtkRD6qdh60SYVxHW W3po1jpPUxgWdlmqItfRSt OAanS3ZfDPHlc942CRFyL3 MzLJSvx5A0edNbZbGvLOLt dSO2jgI5YCZgQMm0jEIedw I4bgOwkWHrJ4xmjI5lPNHi PO8iyeksq6pzUKmyWMawWI DciUX7npY5ZOSwwWUwA2Ub oY8yTFMrKMksXBQkwri5Xd OpXc2vyGFosDjpJTjkDvaq YWdlXHBnbmNvbnRccGduZG VjXHBsYWluXHBsYWluXGYw EDEzHlKfvXlscMeimL2pBw HqVyAsHRrnUM7fFFQuI9gl pHRrUQCqMXZgJ7rtPiFihC 9jaFxmMVxjZjJcZnMyMFxw YXIgSSBoYXZlIHBlcnNvbm HdgQbvyoB5wHB7NCJjOTzd PWBdAIZspZIqos6kbVqoHN OeCY8cOBMhccQaRPoonFtp BRdwSIS1ENVvkFGvwLKmzR FkZSBieSByZXNpZGVudHMs CKXmlVzfu5Usq5FuxLD4xX 1tz8shs3KqYILbuGQ4WF22 kbW0tU9mSUKcLI7sKTFqDP 8omUQqkWBfCQBbz93pkAcy cyByZXBvcnQuXHBsYWluXG YyXGZzMjhcbGFuZzEwMzNc aGljaFxmMlxkYmNoXGYyXG xfF0mvCwYsMuJnRUezRTL3 fQ== Clinical Information Abdominal distention (test code = [R14.0] 0498267462) Gross Description (test d0qndIFaDZTyiRVqJcXzOE code = 8166127273) QlIOSox8ozQTAevRCjAgFe MzNcZnRuYmpcdWMxXGRlZm Vxp0bol738dNFdx4kgOMHw MfP3yGUnFGKylBLpQ637HR CdFKzic2roo6QyCHRwmNFa u9N4HUVUdiapoDo4bGdzS4 7nm1B5JvyfA7rzOWDhRKfj NOEaVGubwCPmVSE1YJEvNE K0DRmpblHlzmP3GDpgsJUd DzU5FQn5k8jovEmaLGGeHI S8z1mhKKzvbaEfWD5vzv2e nUz5a5qrejGmHLAhKSGhiO KEECOzU2CwbZmiMs5qwId2 mKksRsteMFX8Lxd0ZM8xej 23huo4mOxvZBKtpmhxToC7 OLgoUTYuclegWWb3MAalWL KfuQZwPWUlyOPcY5OcFGmz IY5gixs2ZuZeDI7gxvanQQ mkRFDnJUM1OxIvPWBvf3Wh rgaoCuOemw9lqn82TFY9u5 AavTmtUFC8MZF6JoWlFe3f oDCzIJDxNK6sMxKbhZEoHG Iqnz52qSdqMTjaofFmuP7e LiKzYDKrcXEaJQUkSK3ypC AqJDTtmH4gcipjECHoKaRx eazkIFDieMuwlrUhLu1ycE qbTVP7LSrvK9zkfW1pMiP5 ZPggP5tzbN1wGFg9TVpkpH D3GYRpiQ2eXK3prjeqy1mi QRB0XRvdORAlisZ2piNjGQ RdiBEtE2CshO94TlLxtNRm H0PskP3eKTojFXRalhg0Se SsGl7ndSMylZB2AUjdKnxb YWdlXHBnbmNvbnRccGduZG VjXHBsYWluXHBsYWluXGYw ZAMqMsIdfMnbsQrdaQ3eZm BcZnMyMFxwbGFpblxmMFxm czIwIFNwZWNpbWVuIEEgcm BuDDn4BBPnGvZsu2mroBDv UGdiDSU9xDPeAUAoHVIrWG TbXD64U6AahkBbUPufGGbz oaXhFoHjFRCgo97tiGU9xH BfrVWcAHndRVKjIXUlM2Su mRUsfnChwF1sp3LvllHtDB 4lIXGindHex9QfDE3wCIEp y1NsnLDhkYBvZEZho5QtnC vkdzTxFaLxuD8jUIUmlfBh z8gpsVPfDD13CTTwJHfbTJ cssxw5pCRgzdNrarEsJ5lj UePzgg0vHBIqCRvulCGztj cuWWjbhoNjEOQ8VkKzCWtz WMJciChefV3sEbGiYcBdQU W7WrVgL03zZMzhvAR5KSZm LGWkasRyi8JaszQwc7s8xY QzhKWlUJSqS8JhkUMvcrZk yW9hr1Cgyk5tQVHTpKMrx7 Lpa9ZwjFHbFRSqc8EgtFcz nbWePE0lFSivWJ1yRUZyPI hpyOGlud79QJMoILVkdHzi QHWyPFS4b89mh1osFTIagT YzBH1oXJV5eKRkafJetGG2 tPKuBrVlOHsvkOA6GQAbPW btSTJAcOLxaBGqYq1cRYAx e90zqMWgkG4bGONyZMBsMy SkQ34zGhWjhGE5hHPddIiy XPmvuVSiK8biTIEjLMTfBz PkLhMbcMS2rDDilzDvhOQo DY7yzyhylf1hVBrzOHY7qh wdS9AbMY9qwvxadrUzOIIf MQ4gSI3lXZKwnfJnqPbaTU SeYQIknBTgNDiiQTwzN5pw XYUzqiG2YGAphT5vNBIpwS BxRu4gPIXlz01qe7r3LWL7 xHDtcI0wkAkwGSBhTJT1d5 4wr9ioWBR3BPLkZEVvzW4o OtSuFfRjLFbcGCFeQK6tIO XdDQRziDPnc5CbtOVehK2p WAGbgaPkrnAkDLPufRR2h1 CrAOVogYNon1MxJSV0uJIs SABlgiFoRSCsGAZlYE4btK BmCVPqbNXog3VfgVK6bVCt YBLmM9Hpn42eQTYeXODzoJ HchKH2OORbVQZwAGPuqBse zX4qJaUsIwNjROl8GWNpEO TnHaa4HMHxAGbzQSAyVRLy MjAgQTQuXHBhclxwYXIgU2 JetGmvsdQar9UjPzcgVXSm EOG0UHASEOO2BIksq8TmV7 voGEfhnQKbV4rqZSPdWTZu PHIhgjLpaMc4DAdyBNRfPX J7LLMIlHConKChxPLfqJGp pMJeFHDtwU8oFOLjoIHkc5 KviYA3vEZbQOOgpgEJBuwp SAWagdHhpfL3bO8hYOThtP IkpDUgETT0RbPnAC3neaKf qRAmHGGrRAY3aR0gAI9pXZ MkWFpyNWFkj1KdDXLhCTDy ITJhpsTyjHv2ASigWGDqkO OdTLQfvsDjvBleuJ5iMyKt ZnMyMFxwbGFpblxmMVxmcz YnPMWwkUovZUXscWSoCF3A FRyZPGRfr3szJ9fqsSLRw5 Qnl5NhzyKcBFFkPZauGOXw XGZzMjBccGFyXHFsXHBsYW ziFKUwPZXbKsTizBodsT8v ZjBcZnMyMFxwYXJccGFyfQ == Embedded Images (test code = 5532690549) [facility] WITH [id number] 11:29:00 Test Item Value Reference Range Interpretation Comments WBC (test code = See_Comment [Automated 6190-2) message] The sy stem which generated this result transmitted reference range : 4.20 - 10.70 10*3/?L. The reference range was not used to interpret this result as normal/abnormal . RBC (test code = See_Comment L [Automated 789-8) message] The sy stem which generated this result transmitted reference range : 4.26 - 5.52 10*6/?L. The reference range was not used to interpret this result as normal/abnormal . HGB (test code = 8.5 g/dL 12.2-16.4 L 718-7) HCT (test code = 26.2 % 38.4-49.3 L 4544-3) MCV (test code = 87.9 fL 81.7-95.6 787-2) MCH (test code = 28.5 pg 26.1-32.7 785-6) MCHC (test code = 32.4 g/dL 31.2-35 786-4) RDW-SD (test code = 48.8 fL 38.5-51.6 55770-7) RDW-CV (test code = 15.2 % 12.1-15.4 788-0) PLT (test code = See_Comment L [Automated 777-3) message] The sy stem which generated this result transmitted reference range : 150 - 328 10*3/ ?L. The reference r meredith was not used to interpret this result as normal/abnormal . MPV (test code = 11.6 fL 9.8-13 16151-6) NRBC/100 WBC (test See_Comment [Automat ed code = 3689152952) message] The system which generated this result transmitted reference range : 0.0 - 10.0 /100 WBCs. The refer ence range was not u sed to interpret th is result as normal/abnormal . NRBC x10^3 (test code <0.01 See_Comment [Auto mated = 7519312627) message] The s ystem which generated this result transmitted reference range : 10*3/?L. The reference range was not used to interpret this result as normal/abnormal . GRAN MAT (NEUT) % 79.1 % (test code = 770-8) IMM GRAN % (test code 0.50 % = 1414542476) LYMPH % (test code = 11.0 % 736-9) MONO % (test code = 7.8 % 5905-5) EOS % (test code = 1.4 % 713-8) BASO % (test code = 0.2 % 706-2) GRAN MAT x10^3(ANC) 4.67 10*3/uL 1.99-6.95 (test code = 8609517966) IMM GRAN x10^3 (test 0.03 10*3/uL 0-0.06 code = 8901943650) LYMPH x10^3 (test code 0.65 10*3/uL 1.09-3.23 L = 731-0) MONO x10^3 (test code 0.46 10*3/uL 0.36-1.02 = 742-7) EOS x10^3 (test code = 0.08 10*3/uL 0.06-0.53 711-2) BASO x10^3 (test code <0.03 0.01-0.09 = 704-7) Lab Interpretation Abnormal (test code = 56311-3) [facility] 11:19:00 Test Item Value Reference Range Interpretation Comments MAGNESIUM (test code = 6240216010) 1.7 mg/dL 1.7-2.4 Lab Interpretation (test code = Normal 77073-0) [facility] 11:19:00 Test Item Value Reference Range Interpretation Comments PHOSPHORUS (test code = 1900147040) 3.0 mg/dL 2.5-5 Lab Interpretation (test code = Normal 32501-2) [facility] [id number] 13:59:01 Interval extubation and removal of enteric tube. No acute cardiopulmonary changes. Preliminary Report Dictated by Resident: Bart De La Torre I reviewed this study and agree. Weston Damon MD., have reviewed this study and agree with theabove report.EXAM: XR CHEST 1 VW CLINICAL INDICATION: 50 years-old Male; sepsis COMPARISON: CXR 04/07/2020 FINDINGS: Lines/tubes: Interval extubation and removal of enteric tube. The tip ofthe right internal jugular line is in stable position and projects over theright atrium. The lungs remain poorly expanded with perihilar vascular congestion. Nointerval pneumothorax. A small right pleural effusion blunts the rightcostophrenic angle. The left hemidiaphragm remains elevated and ispartially obscured by left basilar atelectasis. The stomach and small bowelare distended with gas. The cardiomediastinal silhouette is normal. No acute osseous abnormality. [facility], Radiant Results Inft User - 04/09/2020 9:00 AM CDTEXAM: XR CHEST 1 VWCLINICAL INDICATION: 50 years-old Male; sepsis COMPARISON: CXR 04/07/2020FINDINGS:Lines/tubes: Interval extubation and removal of enteric tube. The tip ofthe right internal jugular line is in stable position and projects over theright atrium.The lungs remain poorly expanded with perihilar vascular congestion. Nointerval pneumothorax. A small right pleural effusion blunts the rightcostophrenic angle. The left hemidiaphragm remains elevated and ispartially obscured by left basilar atelectasis. The stomach and small bowelare distended withgas.The cardiomediastinal silhouette is normal. No acute osseous abnormality. IMPRESSIONInterval extubation and removal of enteric tube.No acute cardiopulmonary changes.Preliminary Report Dictated by Resident: Bart Klein reviewed this study and agree.Weston Damon MD., have reviewed this study and agree with theabove report.[facility] (86928[facility] (ALB,T.PRO,BILI T,BU/BC,ALT,AST,ALK PHOS) 2020-04-09 11:52:00 Test Item Value Reference Range Interpretation Comments TOTAL BILI (test code = 8293291264) 1.2 mg/dL 0.1-1.1 H BILI UNCON (test code = 9591189100) 0.8 mg/dL 0.1-1.1 BILI CONJ (test code = 3894784601) 0.0 mg/dL 0-0.3 T PROTEIN (test code = 2161481751) 4.2 g/dL 6.3-8.2 L ALBUMIN (test code = 4390564439) 2.2 g/dL 3.5-5 L ALK PHOS (test code = 6775116475) 36 U/L 34-122 ALTv (test code = 1742-6) 13 U/L 5-50 AST(SGOT) (test code = 5329029610) 23 U/L 13-40 Lab Interpretation (test code = Abnormal 83037-0) [facility] WITH [id number] 10:01:00 Test Item Value Reference Range Interpretation Comments WBC (test code = See_Comment [Automated 6690-2) message] The sy stem which generated this result transmitted reference range : 4.20 - 10.70 10*3/?L. The reference range was not used to interpret this result as normal/abnormal . RBC (test code = See_Comment L [Automated 789-8) message] The sy stem which generated this result transmitted reference range : 4.26 - 5.52 10*6/?L. The reference range was not used to interpret this result as normal/abnormal . HGB (test code = 8.6 g/dL 12.2-16.4 L 718-7) HCT (test code = 26.5 % 38.4-49.3 L 4544-3) MCV (test code = 86.6 fL 81.7-95.6 787-2) MCH (test code = 28.1 pg 26.1-32.7 785-6) MCHC (test code = 32.5 g/dL 31.2-35 786-4) RDW-SD (test code = 47.6 fL 38.5-51.6 94427-5) RDW-CV (test code = 14.8 % 12.1-15.4 788-0) PLT (test code = See_Comment L [Automated 777-3) message] The sy stem which generated this result transmitted reference range : 150 - 328 10*3/ ?L. The reference r meredith was not used to interpret this result as normal/abnormal . MPV (test code = 11.6 fL 9.8-13 12638-5) NRBC/100 WBC (test See_Comment [Automat ed code = 2802086112) message] The system which generated this result transmitted reference range : 0.0 - 10.0 /100 WBCs. The refer ence range was not u sed to interpret th is result as normal/abnormal . NRBC x10^3 (test code <0.01 See_Comment [Auto mated = 8148700783) message] The s ystem which generated this result transmitted reference range : 10*3/?L. The reference range was not used to interpret this result as normal/abnormal . GRAN MAT (NEUT) % 87.5 % (test code = 770-8) IMM GRAN % (test code 0.90 % = 9478805870) LYMPH % (test code = 7.5 % 736-9) MONO % (test code = 3.4 % 5905-5) EOS % (test code = 0.5 % 713-8) BASO % (test code = 0.2 % 706-2) GRAN MAT x10^3(ANC) 5.12 10*3/uL 1.99-6.95 (test code = 8646282461) IMM GRAN x10^3 (test 0.05 10*3/uL 0-0.06 code = 0704242000) LYMPH x10^3 (test code 0.44 10*3/uL 1.09-3.23 L = 731-0) MONO x10^3 (test code 0.20 10*3/uL 0.36-1.02 L = 742-7) EOS x10^3 (test code = 0.03 10*3/uL 0.06-0.53 L 711-2) BASO x10^3 (test code <0.03 0.01-0.09 = 704-7) DOHLE BODIES (test Present A code = 7792-5) TOXIC CHANGES (test Present A code = 803-7) Lab Interpretation Abnormal (test code = 74363-3) [facility] METABOLIC PANEL (NA, K, CL, CO2, GLUCOSE, BUN, CREATININE, CA)2020-04-09 09:37:00 Test Item Value Reference Range Interpretation Comments NA (test code = 135 mmol/L 135-145 1964439429) K (test code = 3.6 mmol/L 3.5-5 3808412973) CL (test code = 105 mmol/L 98-108 2931725096) CO2 TOTAL (test code = 31 mmol/L 23-31 7935846621) AGAP (test code = <1 2-16 L 4212738946) BUN (test code = 28 mg/dL 7-23 H 6110430593) GLUCOSE (test code = 95 mg/dL 70-110 2200609374) CREATININE (test code = 0.78 mg/dL 0.6-1.25 8698792549) CALCIUM (test code = 8.1 mg/dL 8.6-10.6 L 0355871262) eGFR Calculation mL/min/1.73m2 (Non-) (test code = 2835316085) eGFR Calculation mL/min/1.73m2 () (test code = 7335440799) GILBERTO (test code = GILBERTO) Association of Glomerular Filtration Rate (GFR) and Staging of Kidney Disease* + --+ --+ ------+| GFR (mL/min/1.73 m2) ?| With Kidney Damage ?| ?Without Kidney Damage+ --------+ --------+ +| ?>90 ?| ?Stage one ?| ? Normal ?+ ---+ ---+ -------+| ?60-89 ?| ?Stage two ?| ? Decreased GFR ? + --+ --+ ------+| ?30-59 ?| ?Stage three ?| ? Stage three ? + --+ --+ ------+| ?15-29 ?| ?Stage four ? | ? Stage four ?+ ---+ ---+ -------+| ?<15 (or dialysis) ? ?| ?Stage five ? | ? Stage five ?+ ---+ ---+ -------+ *Each stage assumes the associated GFR level has been in effect for at least three months. ?Stages 1 to 5, with or without kidney disease, indicate chronic kidney disease. Notes: Determination of stages one and two (with eGFR >59mL/min/1.73 m2) requires estimation of kidney damage for at least three months as defined by structural or functional abnormalities of the kidney, manifested by either:Pathological abnormalities or Markers of kidney damage (including abnormalities in the composition of the blood or urine or abnormalities in imaging tests). Lab Interpretation Abnormal (test code = 19795-3) [facility] Test Item Value Reference Range Interpretation Comments MAGNESIUM (test code = 6855476981) 1.8 mg/dL 1.7-2.4 Lab Interpretation (test code = Normal 46018-3) [facility] Test Item Value Reference Range Interpretation Comments PHOSPHORUS (test code = 5256496721) 1.8 mg/dL 2.5-5 L Lab Interpretation (test code = Abnormal 47356-4) [facility] [id number] 21:18:00 Test Item Value Reference Range Interpretation Comments PH (test code = 2) 7.35-7.45 PCO2 (test code = See_Comment [Automate d 2329044648) message] The sy stem which generated this result transmitted reference range : 35 - 45 mmHg. The reference range was not used to interpret this result as normal/abnormal . PO2 (test code = See_Comment L [Automated 6972827906) message] The sy stem which generated this result transmitted reference range : 80 - 100 mmHg. The reference range was not used to interpret this result as normal/abnormal . HCO3 (test code = See_Comment [Automate d 2538945142) message] The sy stem which generated this result transmitted reference range : 22 - 26 mEq/L. The reference range was not used to interpret this result as normal/abnormal . BE (test code = See_Comment [Automated 6501306406) message] The sy stem which generated this result transmitted reference range : -3.0 - 3.0 mEq/ L. The reference r meredith was not used to interpret this result as normal/abnormal . THB (test code = 9.2 g/dL 13.5-18 L 5869679379) %O2HB (test code = 94.3 % 94-99 1358302759) %COHB ART (test code = 0.7 % 0-1.5 1993599009) %METHB ART (test code = 0.3 % 0.4-1.5 L 7549780312) VOL%O2 ART (test code = 12.3 % 15-23 L 0417376305) NA (test code = 135 mmol/L 135-145 6800243541) K+ (test code = 3.7 mmol/L 3.5-5 3612010184) AC CA IONZ (test code = 4.90 mg/dL 4.5-5.3 2947532231) GLUCOSE (test code = 94 mg/dL 70-110 6457173925) LACTIC ACID (test code 1.35 mmol/L = 4249512406) Lab Interpretation Abnormal (test code = 50477-4) [facility] GLUCOSE (AUTOMATED)2020-04-08 16:33:00 Test Item Value Reference Range Interpretation Comments POCT GLU (test code = 5028821344) 109 mg/dL 70-110 Lab Interpretation (test code = Normal 87584-1) [facility] GLUCOSE (AUTOMATED)2020-04-08 16:33:00 Test Item Value Reference Range Interpretation Comments POCT GLU (test code = 1843937227) 120 mg/dL 70-110 H Lab Interpretation (test code = Abnormal 59671-4) [facility] GLUCOSE (AUTOMATED)2020-04-08 16:33:00 Test Item Value Reference Range Interpretation Comments POCT GLU (test code = 5026362110) 93 mg/dL 70-110 Lab Interpretation (test code = Normal 27869-3) [facility] GLUCOSE (AUTOMATED)2020-04-08 12:46:00 Test Item Value Reference Range Interpretation Comments POCT GLU (test code = 6383335257) 109 mg/dL 70-110 Lab Interpretation (test code = Normal 57434-2) [facility] WITH [id number] 10:21:00 Test Item Value Reference Range Interpretation Comments WBC (test code = See_Comment L [Automated 6690-2) message] The system which generated this result transmitted reference range : 4.20 - 10.70 10*3/?L. The reference range was not used to interpret this result as normal/abnormal . RBC (test code = See_Comment L [Automated 789-8) message] The system which generated this result transmitted reference range : 4.26 - 5.52 10*6/?L. The reference range was not used to interpret this result as normal/abnormal . HGB (test code = 9.0 g/dL 12.2-16.4 L 718-7) HCT (test code = 25.8 % 38.4-49.3 L 4544-3) MCV (test code = 87.8 fL 81.7-95.6 787-2) MCH (test code = 30.6 pg 26.1-32.7 785-6) MCHC (test code = 34.9 g/dL 31.2-35 786-4) RDW-SD (test code = 48.4 fL 38.5-51.6 71812-7) RDW-CV (test code = 15.0 % 12.1-15.4 788-0) PLT (test code = See_Comment L [Automated 777-3) message] The system which generated this result transmitted reference range : 150 - 328 10*3/?L. The reference range was not used to interpret this result as normal/abnormal . MPV (test code = 11.4 fL 9.8-13 87188-3) NRBC/100 WBC (test See_Comment [Automat ed code = 6520698210) message] The system which generated this result transmitted reference range : 0.0 - 10.0 /100 WBCs. The reference range was not used to interpret this result as normal/abnormal . NRBC x10^3 (test code <0.01 See_Comment [Auto mated = 3107871180) message] The system which generated this result transmitted reference range : 10*3/?L. The reference range was not used to interpret this result as normal/abnormal . GRAN MAT (NEUT) % 84.9 % (test code = 770-8) IMM GRAN % (test code 0.80 % = 7030666110) LYMPH % (test code = 7.9 % 736-9) MONO % (test code = 5.3 % 5905-5) EOS % (test code = 0.3 % 713-8) BASO % (test code = 0.8 % 706-2) GRAN MAT x10^3(ANC) 3.34 10*3/uL 1.99-6.95 (test code = 9928197402) IMM GRAN x10^3 (test 0.03 10*3/uL 0-0.06 code = 6043445920) LYMPH x10^3 (test 0.31 10*3/uL 1.09-3.23 L code = 731-0) MONO x10^3 (test code 0.21 10*3/uL 0.36-1.02 L = 742-7) EOS x10^3 (test code <0.03 0.06-0.53 L = 711-2) BASO x10^3 (test code 0.03 10*3/uL 0.01-0.09 = 704-7) GOLDEN CELLS (test code 2+ See_Comment A [Auto mated = 7790-9) message] The system which generated this result transmitted reference range : (none). The reference range was not used to interpret this result as normal/abnormal . BANDS (test code = MARKED INCREASED A 3421435744) DOHLE BODIES (test Present A code = 7792-5) TOXIC CHANGES (test Present A code = 803-7) Lab Interpretation Abnormal (test code = 47695-2) [facility] METABOLIC PANEL (NA, K, CL, CO2, GLUCOSE, BUN, CREATININE, CA)2020-04-08 10:02:00 Test Item Value Reference Range Interpretation Comments NA (test code = 138 mmol/L 135-145 8910298006) K (test code = 4.1 mmol/L 3.5-5 8801725570) CL (test code = 109 mmol/L 98-108 H 7683312983) CO2 TOTAL (test code = 25 mmol/L 23-31 6196502074) AGAP (test code = 2-16 7156693792) BUN (test code = 26 mg/dL 7-23 H 2981548506) GLUCOSE (test code = 103 mg/dL 70-110 9912608148) CREATININE (test code = 0.90 mg/dL 0.6-1.25 3515079284) CALCIUM (test code = 8.4 mg/dL 8.6-10.6 L 6018634623) eGFR Calculation mL/min/1.73m2 (Non-) (test code = 0720290406) eGFR Calculation mL/min/1.73m2 () (test code = 9805589227) GILBERTO (test code = GILBERTO) Association of Glomerular Filtration Rate (GFR) and Staging of Kidney Disease* + --+ --+ ------+| GFR (mL/min/1.73 m2) ?| With Kidney Damage ?| ?Without Kidney Damage+ --------+ --------+ +| ?>90 ?| ?Stage one ?| ? Normal ?+ ---+ ---+ -------+| ?60-89 ?| ?Stage two ?| ? Decreased GFR ? + --+ --+ ------+| ?30-59 ?| ?Stage three ?| ? Stage three ? + --+ --+ ------+| ?15-29 ?| ?Stage four ? | ? Stage four ?+ ---+ ---+ -------+| ?<15 (or dialysis) ? ?| ?Stage five ? | ? Stage five ?+ ---+ ---+ -------+ *Each stage assumes the associated GFR level has been in effect for at least three months. ?Stages 1 to 5, with or without kidney disease, indicate chronic kidney disease. Notes: Determination of stages one and two (with eGFR >59mL/min/1.73 m2) requires estimation of kidney damage for at least three months as defined by structural or functional abnormalities of the kidney, manifested by either:Pathological abnormalities or Markers of kidney damage (including abnormalities in the composition of the blood or urine or abnormalities in imaging tests). Lab Interpretation Abnormal (test code = 50526-9) [facility] 10:02[facility]00 Test Item Value Reference Range Interpretation Comments MAGNESIUM (test code = 3549935925) 2.6 mg/dL 1.7-2.4 H Lab Interpretation (test code = Abnormal 58048-4) [facility] + LACTIC [id number] 09:43:00 Test Item Value Reference Range Interpretation Comments PH (test code = 7.32-7.42 2264690104) PCO2 RUTHANN (test code = See_Comment [Auto mated 7827633391) message] The sy stem which generated this result transmitted reference range : 41 - 51 mmHg. The reference range was not used to interpret this result as normal/abnormal . PO2 RUTHANN (test code = See_Comment [Autom ated 0624035337) message] The sy stem which generated this result transmitted reference range : 25 - 40 mmHg. The reference range was not used to interpret this result as normal/abnormal . HCO3 RUTHANN (test code = See_Comment [Auto mated 0948955344) message] The sy stem which generated this result transmitted reference range : 24 - 28 mEq/L. The reference range was not used to interpret this result as normal/abnormal . AC VBE(BEAKER) (test mEq/L code = 0369780249) THB RUTHANN (test code = 11.4 g/dL 13.5-18 L 9191227654) %O2HB RUTHANN (test code = 64.9 % 52-63 H 3882601344) %COHB RUTHANN (test code = 1.0 % 0-1.5 8427717701) %METHB RUTHANN (test code = 0.3 % 0.4-1.5 L 5475908177) VOL%O2 RUTHANN (test code = 10.4 % 6-12 7697198176) NA (test code = 138 mmol/L 135-145 8074002163) K+ (test code = 4.1 mmol/L 3.5-5 7117293348) AC CA IONZ (test code = 4.90 mg/dL 4.5-5.3 8038445543) GLUCOSE (test code = 98 mg/dL 70-110 4617369790) LACTIC ACID (test code 1.90 mmol/L = 0217377554) Lab Interpretation Abnormal (test code = 02742-1) [facility]2020-04-08 04:25:00 Test Item Value Reference Range Interpretation Comments POCT GLU (test code = 9633378586) 106 mg/dL 70-110 Lab Interpretation (test code = Normal 12386-1) [facility] 1 [id number] 22:55:21Impression: Stable findings with no new changes.Exam: XR CHEST 1 VW Clinical History: intubated, sepsis Comparison: April 06, 2020 Findings: Single frontal view of the chest is compared to the prior study. Thecardiomediastinal silhouette and the lung childress show no new changes. Noevidence of an acuteinfiltrate, pleural effusion, or pneumothorax. Otherstable findings include right-sided central venous catheter with its tip inthe right atrium, endotracheal tube, NG tube, and elevated lefthemidiaphragm. Bones and upper abdomen are unchanged. [facility], Radiant Results Inft User - 04/07/2020 5:56 PM CDTExam: XR CHEST 1 VWClinical History: intubated, sepsis Comparison: April 06, 2020Findings: Single frontal view of the chest is compared to the prior study. Thecardiomediastinal silhouette and the lung childress show no new changes. Noevidence of an acute infiltrate, pleural effusion, or pneumothorax. Otherstable findings include right-sided central venous catheter with its tip inthe right atrium, endotracheal tube, NG tube, and elevated lefthemidiaphragm. Bones and upper abdomen are unchanged.IMPRESSIONIm pression: Stable findings with no new changes.[facility] MRSA / MSSA Screen by Estefanía [id number] 19:28:00 Test Item Value Reference Range Interpretation Comments MSSA Screen by Estefanía VIEIRA (test code Negative Negative = 22275-6) MRSA/MSSA Positive? (test code = No No 8290598872) Lab Interpretation (test code = Normal 18957-7) [facility]2020-04-07 17:01:00 Test Item Value Reference Range Interpretation Comments POCT GLU (test code = 5707600791) 95 mg/dL 70-110 Lab Interpretation (test code = Normal 06874-8) [facility] + LACTIC [id number] 14:15:00 Test Item Value Reference Range Interpretation Comments PH (test code = 2) 7.35-7.45 L PCO2 (test code = See_Comment [Automate d 9468849811) message] The sy stem which generated this result transmitted reference range : 35 - 45 mmHg. The reference range was not used to interpret this result as normal/abnormal . PO2 (test code = See_Comment H [Automated 7082138410) message] The sy stem which generated this result transmitted reference range : 80 - 100 mmHg. The reference range was not used to interpret this result as normal/abnormal . HCO3 (test code = See_Comment L [Automate d 2243843762) message] The sy stem which generated this result transmitted reference range : 22 - 26 mEq/L. The reference range was not used to interpret this result as normal/abnormal . BE (test code = See_Comment L [Automated 6812333948) message] The sy stem which generated this result transmitted reference range : -3.0 - 3.0 mEq/ L. The reference r meredith was not used to interpret this result as normal/abnormal . THB (test code = 9.6 g/dL 13.5-18 L 6992570419) %O2HB (test code = 98.6 % 94-99 6254870821) %COHB ART (test code = 0.3 % 0-1.5 1196938418) %METHB ART (test code = 0.0 % 0.4-1.5 L 3471997012) VOL%O2 ART (test code = NA 7979486884) NA (test code = 131 mmol/L 135-145 L 1368672777) K+ (test code = 4.3 mmol/L 3.5-5 6064662050) AC CA IONZ (test code = 4.60 mg/dL 4.5-5.3 8370317532) GLUCOSE (test code = 147 mg/dL 70-110 H 4562826234) LACTIC ACID (test code 3.12 mmol/L 0.5-2.2 H = 0096509409) Lab Interpretation Abnormal (test code = 85832-1) [facility] CenterLaokic Acid Whole [id number] 14:00:00 Test Item Value Reference Range Interpretation Comments LACTIC ACID (test code = 3.12 mmol/L 5967437782) [facility] 12:53:00 Test Item Value Reference Range Interpretation Comments POCT GLU (test code = 5785806867) 140 mg/dL 70-110 H Lab Interpretation (test code = Abnormal 68044-1) [facility] + LACTIC [id number] 12:01:00 Test Item Value Reference Range Interpretation Comments PH (test code = 2) 7.35-7.45 L PCO2 (test code = See_Comment L [Automate d 6873143819) message] The sy stem which generated this result transmitted reference range : 35 - 45 mmHg. The reference range was not used to interpret this result as normal/abnormal . PO2 (test code = See_Comment H [Automated 2945200438) message] The sy stem which generated this result transmitted reference range : 80 - 100 mmHg. The reference range was not used to interpret this result as normal/abnormal . HCO3 (test code = See_Comment L [Automate d 4200521668) message] The sy stem which generated this result transmitted reference range : 22 - 26 mEq/L. The reference range was not used to interpret this result as normal/abnormal . BE (test code = See_Comment L [Automated 9550555998) message] The sy stem which generated this result transmitted reference range : -3.0 - 3.0 mEq/ L. The reference r meredith was not used to interpret this result as normal/abnormal . THB (test code = 10.8 g/dL 13.5-18 L 4112985907) %O2HB (test code = 98.8 % 94-99 0750331882) %COHB ART (test code = 0.3 % 0-1.5 5009033691) %METHB ART (test code = 0.0 % 0.4-1.5 L 0186394533) VOL%O2 ART (test code = 15.4 % 15-23 4541326007) NA (test code = 126 mmol/L 135-145 L 1260018351) K+ (test code = 4.3 mmol/L 3.5-5 3903699939) AC CA IONZ (test code = 4.70 mg/dL 4.5-5.3 0594863144) GLUCOSE (test code = 144 mg/dL 70-110 H 6945830352) LACTIC ACID (test code 2.79 mmol/L = 2427114580) Lab Interpretation Abnormal (test code = 00662-3) [facility] CenterURINE [id number] 11:44:00 Test Item Value Reference Range Interpretation Comments URINE CULTURE (test No aerobic growth (< code = 630-4) 1000 CFU/mL) [facility]CB WITH [id number] 09:53:00 Test Item Value Reference Range Interpretation Comments WBC (test code = See_Comment L [Automated 6690-2) message] The sy stem which generated this result transmitted reference range : 4.20 - 10.70 10*3/?L. The reference range was not used to interpret this result as normal/abnormal . RBC (test code = See_Comment L [Automated 789-8) message] The sy stem which generated this result transmitted reference range : 4.26 - 5.52 10*6/?L. The reference range was not used to interpret this result as normal/abnormal . HGB (test code = 8.9 g/dL 12.2-16.4 L 718-7) HCT (test code = 27.9 % 38.4-49.3 L 4544-3) MCV (test code = 89.7 fL 81.7-95.6 787-2) MCH (test code = 28.6 pg 26.1-32.7 785-6) MCHC (test code = 31.9 g/dL 31.2-35 786-4) RDW-SD (test code = 48.8 fL 38.5-51.6 56182-2) RDW-CV (test code = 15.0 % 12.1-15.4 788-0) PLT (test code = See_Comment L [Automated 777-3) message] The sy stem which generated this result transmitted reference range : 150 - 328 10*3/ ?L. The reference r meredith was not used to interpret this result as normal/abnormal . MPV (test code = 11.8 fL 9.8-13 52594-0) IPF % (test code = 6.5 % 1.2-10.7 Platelet count 7672545062) measured by fluorescence method. NRBC/100 WBC (test See_Comment [Automat ed code = 7201411168) message] The system which generated this result transmitted reference range : 0.0 - 10.0 /100 WBCs. The refer ence range was not u sed to interpret th is result as normal/abnormal . NRBC x10^3 (test code <0.01 See_Comment [Auto mated = 9665380054) message] The s ystem which generated this result transmitted reference range : 10*3/?L. The reference range was not used to interpret this result as normal/abnormal . SEG % (test code = 20 % 33-76 L 81420-0) BAND % (test code = 45 % 0-1 H 90985-3) META % (test code = 9 % See_Comment H [Automa dain 30725-9) message] The sy stem which generated this result transmitted reference range : <=0. The refere nce range was not u sed to interpret th is result as normal/abnormal . MYELO % (test code = 1 % See_Comment H [Autom ated 19106-0) message] The sy stem which generated this result transmitted reference range : <=0. The refere nce range was not u sed to interpret th is result as normal/abnormal . LYMPH % (test code = 20 % 14-54 96460-5) MONO % (test code = 5 % 0-4 H 11669-7) ANC (test code = 1.40 10*3/uL 1.99-6.95 L 6466862599) GOLDEN CELLS (test code 2+ See_Comment A [Auto mated = 7790-9) message] The sy stem which generated this result transmitted reference range : (none). The reference range was not used to interpret this result as normal/abnormal . SCHISTOCYTES (test 1+ A code = 800-3) DOHLE BODIES (test Present A code = 7792-5) TOXIC CHANGES (test Present A code = 803-7) Lab Interpretation Abnormal (test code = 27221-1) [facility] METABOLIC PANEL (NA, K, CL, CO2, GLUCOSE, BUN, CREATININE, CA)2020-04-07 09:21:00 Test Item Value Reference Range Interpretation Comments NA (test code = 137 mmol/L 135-145 3108517882) K (test code = 4.6 mmol/L 3.5-5 0471664131) CL (test code = 110 mmol/L 98-108 H 3777712890) CO2 TOTAL (test code = 17 mmol/L 23-31 L 2607563241) AGAP (test code = 2-16 7119916963) BUN (test code = 24 mg/dL 7-23 H 5587458680) GLUCOSE (test code = 132 mg/dL 70-110 H 1088227458) CREATININE (test code = 1.23 mg/dL 0.6-1.25 1099066268) CALCIUM (test code = 8.0 mg/dL 8.6-10.6 L 5065496776) eGFR Calculation mL/min/1.73m2 (Non-) (test code = 9567764338) eGFR Calculation mL/min/1.73m2 () (test code = 2385230219) GILBERTO (test code = GILBERTO) Association of Glomerular Filtration Rate (GFR) and Staging of Kidney Disease* + --+ --+ ------+| GFR (mL/min/1.73 m2) ?| With Kidney Damage ?| ?Without Kidney Damage+ --------+ --------+ +| ?>90 ?| ?Stage one ?| ? Normal ?+ ---+ ---+ -------+| ?60-89 ?| ?Stage two ?| ? Decreased GFR ? + --+ --+ ------+| ?30-59 ?| ?Stage three ?| ? Stage three ? + --+ --+ ------+| ?15-29 ?| ?Stage four ? | ? Stage four ?+ ---+ ---+ -------+| ?<15 (or dialysis) ? ?| ?Stage five ? | ? Stage five ?+ ---+ ---+ -------+ *Each stage assumes the associated GFR level has been in effect for at least three months. ?Stages 1 to 5, with or without kidney disease, indicate chronic kidney disease. Notes: Determination of stages one and two (with eGFR >59mL/min/1.73 m2) requires estimation of kidney damage for at least three months as defined by structural or functional abnormalities of the kidney, manifested by either:Pathological abnormalities or Markers of kidney damage (including abnormalities in the composition of the blood or urine or abnormalities in imaging tests). Lab Interpretation Abnormal (test code = 16294-9) [facility]15 09:19:00 Test Item Value Reference Range Interpretation Comments MAGNESIUM (test code = 9094123216) 2.9 mg/dL 1.7-2.4 H Lab Interpretation (test code = Abnormal 25525-3) [facility]2020-04-07 04:37:00 Test Item Value Reference Range Interpretation Comments POCT GLU (test code = 7757035189) 111 mg/dL 70-110 H Lab Interpretation (test code = Abnormal 04686-7) [facility] CenterHCV [id number] 02:35:00 Test Item Value Reference Range Interpretation Comments HCV Ab (test code = 05319-8) Negative HCV Semi-Quantitative (test code = 00675-6) [facility] + LACTIC [id number] 02:15:00 Test Item Value Reference Range Interpretation Comments PH (test code = 7.32-7.42 L 5346047443) PCO2 RUTHANN (test code = See_Comment L [Auto mated 1669294006) message] The sy stem which generated this result transmitted reference range : 41 - 51 mmHg. The reference range was not used to interpret this result as normal/abnormal . PO2 RUTHANN (test code = See_Comment HH [Autom ated 7087897991) message] The sy stem which generated this result transmitted reference range : 25 - 40 mmHg. The reference range was not used to interpret this result as normal/abnormal . HCO3 RUTHANN (test code = See_Comment L [Auto mated 7715497644) message] The sy stem which generated this result transmitted reference range : 24 - 28 mEq/L. The reference range was not used to interpret this result as normal/abnormal . AC VBE(BEAKER) (test mEq/L code = 4817479477) THB RUTHANN (test code = 11.2 g/dL 13.5-18 L 3310611422) %O2HB RUTHANN (test code = 98.7 % 52-63 H 5281694492) %COHB RUTHANN (test code = 0.3 % 0-1.5 0418052747) %METHB RUTHANN (test code = 0.1 % 0.4-1.5 L 8443096299) VOL%O2 RUTHANN (test code = 15.9 % 6-12 H 5476693205) NA (test code = 136 mmol/L 135-145 2644213664) K+ (test code = 4.2 mmol/L 3.5-5 3495699922) AC CA IONZ (test code = 4.60 mg/dL 4.5-5.3 0967500198) GLUCOSE (test code = 108 mg/dL 70-110 5234969940) LACTIC ACID (test code 2.37 mmol/L = 5065537191) Lab Interpretation Abnormal (test code = 19483-4) [facility] CenterABG+COOX+NA+K+GLU+CA2+2020-04-07 01:54:00 Test Item Value Reference Range Interpretation Comments PH (test code = 2) 7.35-7.45 LL PCO2 (test code = See_Comment [Automate d message] 2659005110) The system [employer] generated this result transmit dain reference range : 35 - 45 mmHg. The reference range was not used to interpret this result as normal/abnormal . PO2 (test code = See_Comment H [Automated message] 2427248916) The system [employer] generated this result transmit dain reference range : 80 - 100 mmHg. The reference range was not used to interpret this result as normal/abnormal . HCO3 (test code = See_Comment L [Automate d message] 1730341713) The system [employer] generated this result transmit dain reference range : 22 - 26 mEq/L. The reference range was not used to interpret this result as normal/abnormal . BE (test code = See_Comment L [Automated message] 6737343339) The system [employer] generated this result transmit dain reference range : -3.0 - 3.0 mEq/ L. The reference r meredith was not used to interpret this result as normal/abnormal . THB (test code = 10.6 g/dL 13.5-18 L 4660695076) %O2HB (test code = 99.0 % 94-99 5126272224) %COHB ART (test code = 0.3 % 0-1.5 8729074155) %METHB ART (test code = 0.3 % 0.4-1.5 L 0362907874) VOL%O2 ART (test code = 15.3 % 15-23 0167714832) NA (test code = 136 mmol/L 135-145 9281910547) K+ (test code = 3.1 mmol/L 3.5-5 L 2406047937) AC CA IONZ (test code = 4.30 mg/dL 4.5-5.3 L 8837251362) GLUCOSE (test code = 113 mg/dL 70-110 H 2718323496) Lab Interpretation Abnormal (test code = 72637-6) [facility]ABG+COOX+NA+K+GLU+CA2+2020-04-07 01:53:00 Test Item Value Reference Range Interpretation Comments PH (test code = 2) 7.35-7.45 PCO2 (test code = See_Comment L [Automate d message] 5057711124) The system [employer] generated this result transmit dain reference range : 35 - 45 mmHg. The reference range was not used to interpret this result as normal/abnormal . PO2 (test code = See_Comment H [Automated message] 3865562206) The system [employer] generated this result transmit dain reference range : 80 - 100 mmHg. The reference range was not used to interpret this result as normal/abnormal . HCO3 (test code = See_Comment L [Automate d message] 1321805960) The system [employer] generated this result transmit dain reference range : 22 - 26 mEq/L. The reference range was not used to interpret this result as normal/abnormal . BE (test code = See_Comment L [Automated message] 1998631358) The system [employer] generated this result transmit dain reference range : -3.0 - 3.0 mEq/ L. The reference r meredith was not used to interpret this result as normal/abnormal . THB (test code = 13.1 g/dL 13.5-18 L 7606430238) %O2HB (test code = 98.9 % 94-99 2585518059) %COHB ART (test code = 0.1 % 0-1.5 7353446313) %METHB ART (test code = 0.6 % 0.4-1.5 5912449594) VOL%O2 ART (test code = 19.3 % 15-23 4167237009) NA (test code = 132 mmol/L 135-145 L 7593584210) K+ (test code = 4.2 mmol/L 3.5-5 6456109075) AC CA IONZ (test code = 4.60 mg/dL 4.5-5.3 1641664384) GLUCOSE (test code = 99 mg/dL 70-110 2798541178) Lab Interpretation Abnormal (test code = 94797-7) [facility]HIV [facility]2 AG-AB WITH [id number] 01:29:00 Test Item Value Reference Range Interpretation Comments HIV Negative Negative Semi-quantitative (test code = 61960-0) GILBERTO (test code = Non-reactive for HIV-1 GILBERTO) antigen and HIV-1/HIV-2 antibodies. ?No laboratory evidence of HIV infection. ?Repeat in 2-4 weeks if acute HIV infection is suspected. [facility] GLUCOSE (AUTOMATED)2020-04-07 00:40:00 Test Item Value Reference Range Interpretation Comments POCT GLU (test code = 2594361422) 100 mg/dL 70-110 Lab Interpretation (test code = Normal 07817-5) [facility] GLUCOSE (AUTOMATED)2020-04-07 00:06:00 Test Item Value Reference Range Interpretation Comments POCT GLU (test code = 2376138301) 116 mg/dL 70-110 H Lab Interpretation (test code = Abnormal 89888-4) [facility] GLUCOSE (AUTOMATED)2020-04-06 22:48:00 Test Item Value Reference Range Interpretation Comments POCT GLU (test code = 8991232927) 94 mg/dL 70-110 Lab Interpretation (test code = Normal 64476-7) [facility] 1 [id number] 21:06:45 1. Interval placement of right internal jugular central venous catheter andendotracheal tube, as detailed above. Tip of the endotracheal tube is abovethe level of clavicles and should be advanced.2. The side port of the nasogastric tube is in the distal esophagus. Thetube should be advanced by at least 3 to 4 cm3. Elevation of the left hemidiaphragm with left lower lung atelectasis. Preliminary Report Dictated by Resident: Ankush Emerson MD., have reviewed this study and agreewith the abovereport.EXAM: XR CHEST 1 VW HISTORY: intubated COMPARISON: Chest x-ray 04/06/2020 Technique: ?AP view radiograph of the chest FINDINGS: The endotracheal tube tip terminates 8 cm from the matilde, the level of thecarotid. Right internal jugular central venous catheter terminates in theright atrium. The endogastric tube terminates in the stomach body.Side-port is most likely in the distal esophagus. Elevation of the left hemidiaphragm with left lower lung atelectasis. Nopleural effusion or p neumothorax is seen. The cardiac silhouette is normal in size. No acute bony abnormality. Marked gaseous distention of the stomach. [facility], Radiant Results Inft User - 04/06/2020 4:07 PM CDTEXAM: XR CHEST 1 VWHISTORY: intubated COMPARISON: Chest x-ray 04/06/2020Technique: AP view radiograph of the chestFI NDINGS:The endotracheal tube tip terminates 8 cm from the matilde, the level of thecarotid. Right internal jugular central venous catheter terminates in theright atrium. The endogastric tube terminates in the stomach body.Side-port is most likely in the distal esophagus.Elevation of the left hemidiaphragm with left lower lung atelectasis. Nopleural effusion or pneumothorax is seen. The cardiac silhouette is normal in size.No acute bony abnormality.Marked gaseous distention of the stomach.IMPRESSION1.Interval placement of right internal jugular central venous catheter andendotracheal tube, as detailed above. Tip of the endotracheal tube is abovethe level of clavicles and should be advanced.2. The side port of the nasogastric tube is in the distal esophagus. Thetube should be advanced by at least 3to 4 cm3. Elevation of the left hemidiaphragm with left lower lung atelectasis.Preliminary Report Dictated by Resident: Kvng Pelaez, Ankush Lyle MD., have reviewed this study and agree with the abovereport.[facility] WITH [id number] 20:15:00 Test Item Value Reference Range Interpretation Comments WBC (test code = See_Comment LL [Automated 4590-2) message] The sy stem which generated this result transmitted reference range : 4.20 - 10.70 10*3/?L. The reference range was not used to interpret this result as normal/abnormal . RBC (test code = See_Comment L [Automated 929-8) message] The sy stem which generated this result transmitted reference range : 4.26 - 5.52 10*6/?L. The reference range was not used to interpret this result as normal/abnormal . HGB (test code = 9.6 g/dL 12.2-16.4 L 718-7) HCT (test code = 30.3 % 38.4-49.3 L 4544-3) MCV (test code = 91.3 fL 81.7-95.6 787-2) MCH (test code = 28.9 pg 26.1-32.7 785-6) MCHC (test code = 31.7 g/dL 31.2-35 786-4) RDW-SD (test code = 49.2 fL 38.5-51.6 99275-7) RDW-CV (test code = 14.7 % 12.1-15.4 788-0) PLT (test code = See_Comment L [Automated 777-3) message] The sy stem which generated this result transmitted reference range : 150 - 328 10*3/ ?L. The reference r meredith was not used to interpret this result as normal/abnormal . MPV (test code = 12.1 fL 9.8-13 14585-2) NRBC/100 WBC (test See_Comment [Automat ed code = 4001567005) message] The system which generated this result transmitted reference range : 0.0 - 10.0 /100 WBCs. The refer ence range was not u sed to interpret th is result as normal/abnormal . NRBC x10^3 (test code <0.01 See_Comment [Auto mated = 6115892402) message] The s ystem which generated this result transmitted reference range : 10*3/?L. The reference range was not used to interpret this result as normal/abnormal . SEG % (test code = 38 % 33-76 03232-2) BAND % (test code = 28 % 0-1 H 93335-9) META % (test code = 4 % See_Comment H [Automa dain 58022-7) message] The sy stem which generated this result transmitted reference range : <=0. The refere nce range was not u sed to interpret th is result as normal/abnormal . MYELO % (test code = 6 % See_Comment H [Autom ated 42421-7) message] The sy stem which generated this result transmitted reference range : <=0. The refere nce range was not u sed to interpret th is result as normal/abnormal . LYMPH % (test code = 16 % 14-54 16282-7) MONO % (test code = 8 % 0-4 H 10186-3) ANC (test code = 0.40 10*3/uL 1.99-6.95 L 0853555142) GOLDEN CELLS (test code 3+ See_Comment A [Auto mated = 7790-9) message] The sy stem which generated this result transmitted reference range : (none). The reference range was not used to interpret this result as normal/abnormal . DOHLE BODIES (test Present A code = 7792-5) Lab Interpretation Abnormal (test code = 25694-2) [facility] Test Item Value Reference Range Interpretation Comments APTT Patient (test code See_Comment H [Au tomated message] = 3173-2) The system [employer] h generated this result transmitted ref erence range: 26 - 36 Seconds. The reference range was not used to int erpret this result as normal/abnormal . Lab Interpretation (test Abnormal code = 18951-0) [facility] / [id number] 19:55:00 Test Item Value Reference Range Interpretation Comments PROTIME PATIENT (test See_Comment H [Auto mated message] code = 5964-2) The system [employer] generated this result transmitted ref erence range: 10.1 - 1 2.6 Seconds. The reference range was not used to int erpret this result as normal/abnormal . INR (test code = 6301-6) Nor mal INR <1.1; Warfarin Therap eutic range 2.0 to 3. 0 or 2.5 to 3.5, dep ending upon the indica tions. Lab Interpretation (test Abnormal code = 24587-8) [facility]OL[facility] ([id number])2020-04-06 19:50:00 Test Item Value Reference Range Interpretation Comments NA (test code = 137 mmol/L 135-145 6556446835) K (test code = 3.6 mmol/L 3.5-5 4215099896) CL (test code = 109 mmol/L 98-108 H 0813202161) CO2 TOTAL (test code = 18 mmol/L 23-31 L 5279138904) AGAP (test code = 2-16 9034562296) BUN (test code = 27 mg/dL 7-23 H 3575854217) GLUCOSE (test code = 91 mg/dL 70-110 7983334022) CREATININE (test code = 1.38 mg/dL 0.6-1.25 H 8874719167) TOTAL BILI (test code = 1.0 mg/dL 0.1-1.7 2727390335) CALCIUM (test code = 8.0 mg/dL 8.6-10.6 L 1694240057) T PROTEIN (test code = 4.3 g/dL 6.3-8.2 L 4749566911) ALBUMIN (test code = 2.7 g/dL 3.5-5 L 9078330418) ALK PHOS (test code = <20 34-122 L 1183564412) ALTv (test code = 9 U/L 5-50 1742-6) AST(SGOT) (test code = 21 U/L 13-40 1127622092) eGFR Calculation mL/min/1.73m2 (Non-) (test code = 7001954156) eGFR Calculation mL/min/1.73m2 () (test code = 4000162580) GILBERTO (test code = GILBERTO) Association of Glomerular Filtration Rate (GFR) and Staging of Kidney Disease* + --+ --+ ------+| GFR (mL/min/1.73 m2) ?| With Kidney Damage ?| ?Without Kidney Damage+ --------+ --------+ +| ?>90 ?| ?Stage one ?| ? Normal ?+ ---+ ---+ -------+| ?60-89 ?| ?Stage two ?| ? Decreased GFR ? + --+ --+ ------+| ?30-59 ?| ?Stage three ?| ? Stage three ? + --+ --+ ------+| ?15-29 ?| ?Stage four ? | ? Stage four ?+ ---+ ---+ -------+| ?<15 (or dialysis) ? ?| ?Stage five ? | ? Stage five ?+ ---+ ---+ -------+ *Each stage assumes the associated GFR level has been in effect for at least three months. ?Stages 1 to 5, with or without kidney disease, indicate chronic kidney disease. Notes: Determination of stages one and two (with eGFR >59mL/min/1.73 m2) requires estimation of kidney damage for at least three months as defined by structural or functional abnormalities of the kidney, manifested by either:Pathological abnormalities or Markers of kidney damage (including abnormalities in the composition of the blood or urine or abnormalities in imaging tests). Lab Interpretation Abnormal (test code = 57454-9) [facility] METABOLIC PANEL (NA, K, CL, CO2, GLUCOSE, BUN, CREATININE, CA)2020-04-06 19:50:00 Test Item Value Reference Range Interpretation Comments NA (test code = 137 mmol/L 135-145 2633090868) K (test code = 3.6 mmol/L 3.5-5 3380747582) CL (test code = 109 mmol/L 98-108 H 3487150763) CO2 TOTAL (test code = 18 mmol/L 23-31 L 7917744493) AGAP (test code = 2-16 1746049297) BUN (test code = 27 mg/dL 7-23 H 3614713698) GLUCOSE (test code = 91 mg/dL 70-110 9371914843) CREATININE (test code = 1.38 mg/dL 0.6-1.25 H 8436796223) CALCIUM (test code = 8.0 mg/dL 8.6-10.6 L 7041705922) eGFR Calculation mL/min/1.73m2 (Non-) (test code = 3904395256) eGFR Calculation mL/min/1.73m2 () (test code = 5497588457) GILBERTO (test code = GILBERTO) Association of Glomerular Filtration Rate (GFR) and Staging of Kidney Disease* + --+ --+ ------+| GFR (mL/min/1.73 m2) ?| With Kidney Damage ?| ?Without Kidney Damage+ --------+ --------+ +| ?>90 ?| ?Stage one ?| ? Normal ?+ ---+ ---+ -------+| ?60-89 ?| ?Stage two ?| ? Decreased GFR ? + --+ --+ ------+| ?30-59 ?| ?Stage three ?| ? Stage three ? + --+ --+ ------+| ?15-29 ?| ?Stage four ? | ? Stage four ?+ ---+ ---+ -------+| ?<15 (or dialysis) ? ?| ?Stage five ? | ? Stage five ?+ ---+ ---+ -------+ *Each stage assumes the associated GFR level has been in effect for at least three months. ?Stages 1 to 5, with or without kidney disease, indicate chronic kidney disease. Notes: Determination of stages one and two (with eGFR >59mL/min/1.73 m2) requires estimation of kidney damage for at least three months as defined by structural or functional abnormalities of the kidney, manifested by either:Pathological abnormalities or Markers of kidney damage (including abnormalities in the composition of the blood or urine or abnormalities in imaging tests). Lab Interpretation Abnormal (test code = 10130-0) [facility] Center[facility]IUM2020-08-14 19:44:00 Test Item Value Reference Range Interpretation Comments MAGNESIUM (test code = 0624038483) 1.7 mg/dL 1.7-2.4 Lab Interpretation (test code = Normal 47765-6) [facility] Center[facility] 21 + LACTIC [id number] 19:25:00 Test Item Value Reference Range Interpretation Comments PH (test code = 7.32-7.42 L 9686630970) PCO2 RUTHANN (test code = See_Comment L [Auto mated 5112893843) message] The sy stem which generated this result transmitted reference range : 41 - 51 mmHg. The reference range was not used to interpret this result as normal/abnormal . PO2 RUTHANN (test code = See_Comment H [Autom ated 2450598278) message] The sy stem which generated this result transmitted reference range : 25 - 40 mmHg. The reference range was not used to interpret this result as normal/abnormal . HCO3 RUTHANN (test code = See_Comment L [Auto mated 9539652056) message] The sy stem which generated this result transmitted reference range : 24 - 28 mEq/L. The reference range was not used to interpret this result as normal/abnormal . AC VBE(BEAKER) (test mEq/L code = 5852973505) THB RUTHANN (test code = 10.1 g/dL 13.5-18 L 8956782258) %O2HB RUTHANN (test code = 84.0 % 52-63 H 3014121992) %COHB RUTHANN (test code = 0.6 % 0-1.5 9801446983) %METHB RUTHANN (test code = 0.3 % 0.4-1.5 L 7299377790) VOL%O2 RUTHANN (test code = 12.0 % 6-12 3454781466) NA (test code = 135 mmol/L 135-145 1082382207) K+ (test code = 3.5 mmol/L 3.5-5 1038812568) AC CA IONZ (test code = 4.50 mg/dL 4.5-5.3 9826294678) GLUCOSE (test code = 87 mg/dL 70-110 7466701654) LACTIC ACID (test code 3.34 mmol/L = 7313811037) Lab Interpretation Abnormal (test code = 43777-3) [facility] 20 + LACTIC [id number] 19:19:00 Test Item Value Reference Range Interpretation Comments PH (test code = 2) 7.35-7.45 L PCO2 (test code = See_Comment L [Automate d 9226755209) message] The sy stem which generated this result transmitted reference range : 35 - 45 mmHg. The reference range was not used to interpret this result as normal/abnormal . PO2 (test code = See_Comment H [Automated 9124765167) message] The sy stem which generated this result transmitted reference range : 80 - 100 mmHg. The reference range was not used to interpret this result as normal/abnormal . HCO3 (test code = See_Comment L [Automate d 8516970693) message] The sy stem which generated this result transmitted reference range : 22 - 26 mEq/L. The reference range was not used to interpret this result as normal/abnormal . BE (test code = See_Comment L [Automated 3177873537) message] The sy stem which generated this result transmitted reference range : -3.0 - 3.0 mEq/ L. The reference r meredith was not used to interpret this result as normal/abnormal . THB (test code = 10.4 g/dL 13.5-18 L 2513750300) %O2HB (test code = 98.3 % 94-99 5570969008) %COHB ART (test code = 0.3 % 0-1.5 1916376407) %METHB ART (test code = 0.3 % 0.4-1.5 L 0483558176) VOL%O2 ART (test code = 14.8 % 15-23 L 4528669363) NA (test code = 135 mmol/L 135-145 0762957502) K+ (test code = 3.5 mmol/L 3.5-5 1756114883) AC CA IONZ (test code = 4.50 mg/dL 4.5-5.3 7954141801) GLUCOSE (test code = 96 mg/dL 70-110 4877681857) LACTIC ACID (test code 2.95 mmol/L = 0819978115) Lab Interpretation Abnormal (test code = 71949-8) [facility] [id number] 16:51:00 Test Item Value Reference Range Interpretation Comments Case Report (test code Surgical Pathology ? ? = 1797645029) ?Case: [id number] ? Authorizing Provider: ?Bia Pedro MD ?Collected: ? 04/03/2020 1513 ?Ordering Location: ? ? [facility] OR ? Received: ?04/03/2020 1657 ? Department ? Pathologist: ? Nimisha Galloway MD PHD ?Specimens: ? A) - COLON, total abdominal colectomy ? B) - COLON, donuts x2 ? Final Diagnosis (test p2cpfZKoEPQfc0jiJEGkyR code = 0108062530) FuZzEwMzNcZnRuYmpcdWMx PJxjzdGpKKgls3InR7RlNt AwMFxhbnNpXGRlZmxhbmcx NTLqHXE1pfSxFTIwOJhgXI JeHNjtYb0kiJRzvRmjKaXf IGRsy8qvtcDRyyueyTn1m5 akVZPkTbS0zCXnGEvdT8th ptAxkHXmPRVhZOu2yC47NA YwsP3rmKCpJAclhuZrIJjd tnGoboUrOki9MWMdC3veSZ AtYPPaZ7RlNH1uEDXdLln9 BLM1ZIG1zRtdx3W3bVTmrY IfhAkdHqAlCsPdMYUHe4Ur XRy3cFbeA7ZfXSEpHjW6jP QgUGFyYWdyYXBoIEZvbnQ7 jUtxF0QpEPOvMrW1iBGxOT ZrJQsxYIIcHl0ogQi5mMwb AirlMYV9Tfk9WJ8btf60em m7pSiqNVErjrgdSoX8VLuf VKAwhpzzIYb4JMnoJDFzmB NcSUTnxKRiZ5XxPUgfRX0g adq9FpUvBM7cohjkPLblIJ RvDBO4YmUaVBZhh9Rcmpng TdQajt3qok88YPL6y0KodO rrRVN8ZEV8SdIuTj9hzVYp WKZvGU4aTmHkjQEgRKVqqg 52nTqvLVbsrvCriQ2wTiNc GIMyqKWaUSTqIG6loWUoDL YcwX3cfpkdUPIrOwPivecd EUJbsGxibuUiDf4cyQxbUF R9JHihA5kjaU7bSzM8OMft A0grsK4tGAh2ZHpmrDN1HJ AidW1fAZ0ihiays4eqRJL7 MGbfJWEjtsC8yiOrVUXemO TrL8WotF88DgZsaEXtP3Sn kF0hNUebSJZkohw2TeXySl 2rpQEdkBK4CIahYhasAAvx XHBnbmNvbnRccGduZGVjXH BsYWluXHBsYWluXGYwXGZz CsAuzUygxYejeM0mMnQtRs MyMFxwbGFpblxmMVxmczIw HJEhnfOVLbIVF7jJWpnzHZ 4DKCatOdYDFLPKAL3BGrdq OTBfBNYxCN4lPuVOM0ULOL KlZ29NV2BVHUrZIgRFTNBF THPOQd5ZL56WCVNFDP1EAv SSYBrHMSPUF97TGUOEUBLW XuQSUITFFBCMF0qCQMaoWT EwBOPeYXGmQ0YAIDSIN4KQ U70jKIWnxzVxQGMsWGXSKP hYVKZEGTRQKMIMD1WSAU5Q AS6JGWyLXKQfU4bNTTYUCD EmY85FT39FZdALXkVPBCkX TGZYTJKNHV3LPJfDFlINEV aJXhqEDREKL1BDSWYszSEb DZXpUBVmCX6XS5NBWPLIFB 9OXHBhciAgICAgLSBOTyBF WrbGJP0ROGSZAlXDATDKQ0 ITYJ0PG1ZDM3bDMXjqIOOu UHFfCL9xTK0BPQRFTzNSRJ BTRVNTSUxFIFNFUlJBVEVE SRPCVZ2FLLBpzKFzITViMX AtIFJFQUNUSVZFIExZTVBI UZ6AUNJLTQZojxEsXTTpCO YVTEQNCOVsWjZPHGNUNB3J CR4AOcuDKlMaqHXrYEZgky xwbGFpblxmMVxmczIyXGxh erjcHPQjRKtaA3vySzZlGV HjhHeyIQhkn5GpPJPhGZFz MCswggSqGXGtz3afPCYyOk G3yVEoXNYMPhIKVrFpRC5p XG7eGHUkXAInZIgiKaRENM xwbGFpblxmMVxmczIwXHBh cdysOKX2x5hrjDLzJOIxgQ OxWzVgGKCkEOZqy4cnTLWu bGFuZzEwMzNcZnRuYmpcdW YwDVLeLqMqs8njv819rECr o6tjMMViFyN4dTKwBKPkkP frvpy8uNrsCrMrXVKyy1ix cyBcZmNoYXJzZXQwIEFyaW ZsH023SZApJDozs4jer7Bd CZKelMKul4E1WQDCNRkxDs IqO683o9syl2vxtuUptCL7 DCJzCPF8FDjfpbUxicZ1EJ hihXOjJnS3ZHdamqEyNWps idPxozUvDav8YZBvM046ZA F0gSutr4vlNFY6GHBfRZMy ShywHh1zrDRwT683YEUmAW CYGJTjqAu0FEHnalClgoBt zLNAm230I622c3voFKZjyv CddSnHxlzrm5nhD626JFGc cGVydzEyMjQwXHBhcGVyaD E5NAWjDI3qeldiIWtnTTtl MGYisuY6NLGtlRWaW3RzWB UhBG9mgrptAEJ4WUuwNZEl WRO3MkBoVOJme1Dltas2Ld Wsjz4jsc73NXF0a8WrcKpt JAR2OME8LyNbPu0auTFfOA ChHH2xWjNeqXDrXRWfez75 kIhxQXaeoqHcdY4fWlKhCF FsaNKcJKBiSI1gcDYxIDMk mH9wdjyiIFHhHoVwjkxhVI ZanPqleoZeCe1jzDvpHZD8 XLsnV0wokW0zQrF2KHlmA2 oscQ6mCVe0DAxcbZH1PKIf mE7dAM0jsmkyj2yrVOkeDK jdTWBqgaU0alE8SWGqnDSm U3XldL2xBIDpUW5xugkjw5 tmLSV0NNjxDACyBXS0DfPt XYInu8Xblgk9UpRbf6YurX QaOYkdG11ec910ODSzsfCd H1emyIPwtulcpDCizttiUJ viymA2LUMsCTNgGOhxRYXt XGZzMjBcbGFuZzEwMzNcaG ljaFxmMVxkYmNoXGYxXGxv M4cjQvJwO3QbCTAnExPvqG FzZBghdCO8WIVwBUBmi27f aTk0JZSfgkqba1IyYOXjaN VkpIDelH2ptyDqq1jhILFq QTMoCMKcB5NxVNN4lZGyHE HxgOUgdYB1BB3hcgCmFI9o ZGUgYnkgcmVzaWRlbnRzLC OiTZktt0szBJ8aRWUlsHuh aT8mhCJ9MSCcj9yudKMdhY Brs6hok9IytrYdHRzaBQIm FZwoMSMvHKHyIR5oOPLmuX ReixDwf2S6YssdjLXbndhv BxtakvU7UWgzwxokHXXfJQ fhL0rsYvAuNMOjdFiaEhen d3WvMWUnVPDiJpuyhQXuzT 0= Clinical Information Large bowel (test code = obstruction [K56.609] 7274683178) Gross Description (test a7bqzSMdEKCthHAbJfNyMT code = 9396260034) NwWWDar3pbASUeyMYhHyTf MzNcZnRuYmpcdWMxXGRlZm Ldf0obk644hTWfp9rhZEBq IdT2dMLvQEQaqNXvD901WB LcFQccx3bus5RsDFFbhPVk e0D2YIMQyjjgtMg1iOenH9 8oj8G4LgdwA2xhXWZhDNch YUKkZVepkDAjOEC5ZSNuRV N0AWrmqqFyqpU1SFqicNUv BnI1TJy3a6lhyAonJTSqQG R6l2tuFHbeixHnKT1gwi0l pHc0x9vedxSlCPEzXPJgdA EMDEFqG0TlqVpgYb9ahZg7 fYcnKehcRPO1Hig2QF5fmb 74ipr9rGwdFTJmbgmgAfA9 PFivVWTvvavmPEt7YZdpLJ ZlyYFjVBYkaFAkW3RxETgc CW2lfkg1LcUyBR6aurbdXU mjCDMzNCH7DdIgRWAlg7Ln dqqiVcNdqo9jou73ZVZ7a1 KtsZqtJKC4CUW3TlRsOj1v mOCrNWKrLD3mLtAiuJCbAQ Ondh76rHcjFTlmnoBkfU7t QbYrACTqbYQcMVCxQD4enN RjPAGvfJ9qgsopBAIeJeLt nwmsULFdoAetlwSeEp2kuO hqFGV0EIddS8ebzR1mFiF2 FPseP5jczS4aCBj2UBcodT Z6AWQneQ2mME9sldanq5py UKA3XOzlYCSbxcG1xgSeZL FtnBNyI9YltA47ZhAmwWXf Y9BkbF7gEEymHGJhysa1Ta FjXv4pbLAlfID6WKutWwck YWdlXHBnbmNvbnRccGduZG VjXHBsYWluXHBsYWluXGYw QZQySqRbxPhmdVzhpC9pFv BcZnMyMFxwbGFpblxmMVxm czIwIFNwZWNpbWVuIEEgaX SnglEqDWb1JVKmDaVzz9ce pCQfBYmpMWDjm7c0sBK3sC EkpUB0kSLqgDbwGG5soIUl CAQUQC77aJVodgEiF03nm6 9fMZRwjPXvVXKiXK9kbJ0p oJRiy7tcU3VisDxlYQSrqk BsA37qz2anbPHty4UiKYE8 o1PvzFXju4qsM9FawAwxj7 NtF3hhRA5tBSbtBnDxK94i xO0jzLGlV4MlCLzbEM0zYV HrQdNyT84fmF1lAXmkwDD7 DIPjHVqgsTlaHUM5DKYsHT ByjXGhoOwbFMeznFbtbS1s RUKcJNXugEKvsdNnCR5qlT fefGY8BtFzC48dXWpeqNG3 RKZjDHR4bGEhXG8yZFlvk9 NzbHkgaWRlbnRpZmlhYmxl GSRxdWSuXTl7BvQZtPQvx6 Qpq9TrAFjhINUfzs7kVUTo VU1yMGNdo692uSB9uZYdUX OkhCE1KZTgysRuo1Veyj7l VGhlIHNwZWNpbWVuIGlzIG 3tHG4zNMTyzB8yEpFwwGLe JH87bE5ic9QspYXhuYDfOa 9yZGVyLiBUaGVyZSBpcyBh VQNfupK8oETgdaYfyJkjmC E9REtdKVivWJazGBWpT9Gx PUVcv81wVZTcyhT1uZ72cb WouOOgMAS0DNYdPFXigQRb OpXaK43gYqHkpWG4aATdWI mdyZLzVA6itcnkyeNjzwCk VGXcY05dPwWjzDI5vZPtxY GzfBjtMDiecDXgQ9qaHxME sw25zO4fvMH9bfD5dUFmyD TshffkjYUwoLLoOB65jJ3y USAla8LsW9mpMEbvd3Lpww A9kWQjTw51RFxsfYUvXJgk dGVuZGVkIGZvciBhIGxlbm d8rSPaFxKqZP0uGUYlTiLU vRFgiK8kgIexTEEbe5Pdlj TsDGIbDTtay18pfLbyYC59 H95tAUDmzwFlb6JakXm7KI FuOAF6VU7uYMbtC6VecxSq YXIsIHdpdGggYXJlYXMgb2 JlM82cNeegj8JjyrUrJPJu EHZaXK5jAMLnnqOcL2liAj Eyxf1bRYJlEB5yWi95IYVs RG3xGWakLJmkvBved5MvrE qqZMJvt9YqgoOoXYMnGFpa x73vaCIntGlxT7pkkcNhUP NoGTVcrNVsTHW5SUxqSM1x wM7hTZElp47iGT2yFUScDv BaxHcuRUGdKLGyBY8nfU5i tthrlUHph1QfHY2nWIWuCT Lvy0hlzpEhyzZ1HI8nyByr jeTjggLktWwjMUWuq9CwbB GfQQLecP7eGDAaHGFyiwDg lg4te4v3ROMlMMVnMD7lRX QedEsaXAouQU7iGYLadODi rR2kkXmeknB2hMZuZFGqzn BhbiBhZGRpdGlvbmFsIHdl ySkpnULtzPVlPNO9moyfW9 EkXBJaPURlUCDsb1EgwVS6 nhK4cZOkqHetq6PtR0JfSC l4wuZ0lC3pGBDlOAJeEBgq XHMztD5jr4wcnCJusYfjk9 EjV3RgSYPvxVSuHNftrMkp QC3vQIW8MDTsFENjs1XopT CinZMgPlEhsjXtj9ObdqRf OYWqCNVzlWYjneKdGC3aiO zbLwjbWB33EMWuSWrxUSMd SR0tqCUpCBA4eAWsOPVut4 PzvCXwUMSuWDNfx6GweNvr IGxpbmUgYXQgdGhlIGJsaW 4lUGPnEGfjq3Xpzb27bxDm EDElaEVcpIAqZ4pmLOHoIC tcf9ErETHqo9W0KY2oQUpf IHJlbWFpbmluZyBtdWNvc2 Udn5KopBxfWEsvCDNrXBhr IZSfRqL1m5OmxVHjiMQxjQ BhbmQgdGhlIHZpYWJpbGl0 yLJlNcS4aLKnkzMbVMN7lM 9qWS0jykosumPzFV7on9Bu AwHeW9Xys5ExoCDcXCKevl 1pbmVkLiBUaGUgcGVyaWNv sH4lvIBtFDJnnN4xANK7sP ZjdEUnaXRsuJEmjKQ5SJJl Wq6oKDLydU2mf7dvbDApdW nqeSlren0zGPOoPHTboueq elwtNxWltVIxXxBdSD73OL XyWHetJOacCZF1UYE2VJGf sTZkm3knsnnfIFCvcTHfs5 VefRT4yJGpNJLdM6Edl05t MWRiZWJxzQFamVU2FYJtvX 4gQTEtQTEwLlxwYXJccGFy NXEhO3Mze84cR32dFIgrbH PiXNEbNyIOxs67tO2fbMFg RWNvU5Aru95hkORrI1bqUR BlbiBmYWNlLCByZXByZXNl lwGfcAm8TTxkWCTjVZM1JT Dop7YxbLXcKTHrI5Pvs41p fMWkB0ypDOQbncTiVWHuVR OoFVBfYZUgajXmtJp7VAym LAUdFPU7FUozEE3eNPLfgT NubW3yxTlsprN4hUYkZUJ3 ltatO2LjFIMvNVYbKIQrbP Daz7WdcXL1dDUhROKcktYU ACpcRuYpbiUdQJ65VXQmyx Esl9AjwRyzleAza7LxtAOz g7UaSZZqBJC9AQpnZYWqz4 hpbWFsIHRvIHRoZSBkaXN0 NR2vAEHlDXWvFJfwIQGrUU NtIEE6IZXlqWFbx4GqgHY1 iKWyVNAmN7Ino30tXD3dNP 91U51qBKCyyjSai7GshSCr bu4uJLGyUDIweXA4HC5aQU EkSUTsFYaaMVTpTMt7UJFf KVXuz2WuQHM7yvxsT1QrYV NjYXIgZGlzdGFsIHRvIGRp n0LmuoDbPWKlfwCnEKKeFY DfRLZaqdNhgYo5VQgpPXUz ACa2ZDVohDKca9GebFS6hK QaNHIrH6Kzj14rDT6lZK72 K85fGLNpsbWue4NalPCntV U3YYwfkI7wgGazFGBjw0Fn bmRlZCBhcmVhXHBhciBBOT whOZ1rd9xttFPvmUuks0Nd N1PiCNRqlGKeOSMfGGVkNV FskuFbzYb4LCqjTROiTUWi NoBDet9uezIcBNP0zW4bSH 9mIGludGVzdGluZSBhdHRh K4ogJKL6cjFyr1NlgMEaTN BbgQAkZ8EdTVfzgiEmbwDy FIPxeYRag3OtoYP5wXOkYR QbtlOQFIP5TKJtvW1gw7ov aMNwfXrtoZitni3bZXKwFX qvt2ivQGciZLRasCUqROYx urJqiDomaO8vUgFlWiMlFB xwbGFpblxmMVxmczIwIFNw ZWNpbWVuIEIgaXMgcmVjZW i4HOSkMfQbd2bzcRQlARed RUO6zZQkSQNaBPXhATKoPD 76Y7SwjdQbNIngIHualqNk XiNfGLQuo2ahmmrfVA2nkZ DqTDerKPueCcvkGF0wIWYw sqKhl7XvIM7uCGTsZL0jw9 XevQ6teV4eXHUumeQ8vyKf FN51AMvyUV60TMmaCA07WS NtIGFuZCAyLjUgeCAxLjkg dXRhVlmyJ86lIfWHk5ZeXL BuxaH4uaIcimWwEesuNRO7 YKDhDGPlRBKpoOMlaU5mcq CewzKalRNkhGV1YSUuPY93 oONaqXrfKD8oWwWlHGYvgb YEQN7HMgfduBPqD9DsZUYc xzC5AVsvMGWvDMWlJFLuXP BzbWFsbGVyIGRvdWdobnV0 IGluIEIzLiBccGFyXHBhci KDTQB3VDLjdpBhuEpaLXFA JTYwIFEvU0Q3BZXwlEqbJU YiQVC3nyNlACOsV1WoIZWA QQBTL8WhMABcVNbxSRAgRV ZzMTZcbGFuZzEwMzNcaGlj aFxmMVxkYmNoXGYxXGxvY2 vkYhDfZ9JaKGOuYWRzB40r aDpctM6mJdUlKdEpGSerTP UrzRsejBsytM8bRcQrNmPv MFxwbGFpblxmMVxmczIwXH Bhcn0= Embedded Images (test code = [id number]) [facility]Int[facility] 16:04:Ana Ahn MD ? ? 04/06/2020 11:06 AMIntubationUrgency: emergent Difficult airway General Information and Staff Patient location during procedure: ORAnesthesiologist: Cynthia Herring MDResident/WATER QUALITY MANAGER: Dana Sampson DOPerformed: anesthesiologist and resident/WATER QUALITY MANAGER Indications and Patient ConditionIndications for airway management: anesthesiaSpontaneous Ventilation: absentSedation level: deepPreoxygenated: yesPatient position: sniffingMask difficulty assessment: 2 - vent by mask +OA or adjuvant +/- NMBA Final Airway DetailsFinal airway type: endotracheal airway Successful airway: ETT Successful intubation technique: video laryngoscopyFacilitating devices/methods: cricoid pressure and anterior pressure/BURPEndotracheal tube insertion site: oralBlade: MacintoshBlade size: #3ETT size (mm): 7.5Cormack-Lehane Classification: grade I - full view of glottisPlacement verified by: chest auscultation and capnometry Number of attempts at approach: 2Ventilation between attempts: BVMNumber of other approaches attempted: 2 Other AttemptsUnsuccessful endotracheal intubation approaches: needed stiff stylet from glidescope to advance tube into airway. [facility] CenterIntubation2020-08-[facility] 16:04:59Ana Syed MD ? ? 04/08/2020 ?5:11 AMIntubationUrgency: emergent Difficult airway General Information and Staff Patient location during procedure: ORAnesthesiologist: Cynthia Herring MDResident/WATER QUALITY MANAGER: Dana Sampson DOPerformed: anesthesiologist and resident/WATER QUALITY MANAGER Indications and Patient ConditionIndications for airway management: anesthesiaSpontaneous Ventilation: absentSedation level: deepPreoxygenated: yesPatient position: sniffingMask difficulty assessment: 2 - vent by mask +OA or adjuvant +/- NMBA Final Airway DetailsFinal airway type: endotracheal airway Successful airway: ETT Successful intubation technique: video laryngoscopyFacilitating devices/methods: cricoid pressure and anterior pressure/BURPEndotracheal tube insertion site: oralBlade: MacintoshBlade size: #3ETT size (mm): 7.5Cormack-Lehane Classification: grade I - full view of glottisPlacement verified by: chest auscultation and capnometry Number of attempts at approach: 2Ventilation between attempts: BVMNumber of other approaches attempted: 2 Other AttemptsUnsuccessful endotracheal intubation approaches: needed stiff stylet from glidescope to advance tube into airway. Additional OfbpmpmrC1y on VL by CA1, multiple attempts by CA1 with ETT with stylet and bougie, unable to pass ETT through glottis. BVM between attempts. Glidescope stylet with ETT used by faculty under VL, attempt x 1 by faculty, g1v, atraumatic.[facility] CenterXR [id number] 15:42:20 Large volume pneumoperitoneum. Continued gaseous distention and dilatation of the stomach and smallbowelfollowing total colectomy with ileoanal anastomosis may representpostoperative ileus. Findings regarding pneumoperitoneum were already communicated to [facility]. Preliminary Report Dictated by Resident: Bart De La Torre I reviewed this study and agree. 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 A large volume ofintraperitoneal free air is visualized under the righthemidiaphragm, in the right flank, and in the lesser peritoneal sac. Theamount is more than expected for recent surgical procedure. Gaseous distention greatly distends the stomach and small bowel and issimilar to prior radiographs. Carmenza project over the midline in the lowerabdomen. [facility], Radiant Results Inft User - 04/06/2020 10:43 AM CDTEXAM: XR KUBHISTORY: hypotension status post total colectomy with ileoanal anastomosisCOMPARISON: KUB 04/05/2020, CXR 04/06/2020FINDINGS:The tip of the enteric tube is in the body of the stomach with theside-port at the gastroesophageal junction.A large volume of intraperitoneal free air is visualized under the righthemidiaphragm, in the right flank, and in the lesser peritoneal sac. Theamount is more than expected for recent surgical procedure.Gaseous distention greatly distends the stomach and small bowel and issimilar to prior radiographs. Carmenza project over the midline in the lowerabdomen.IMPRESSIONLarge volume pneumoperitoneum.Continued gaseous distention and dilatation of the stomach and small bowelfollowing total colectomy with ileoanal anastomosis may representpostoperative ileus.Findings regarding pneumoperitoneum were already communicated to [facility].Preliminary Report Dictated by Resident: Bart Klein reviewed this study and agree.Weston Damon MD., have reviewed this study andagree with theabove report. [facility] CenterType and Screen - ONCE [id number] 15:18:48 Test Item Value Reference Range Interpretation Comments ABO & RH (test code O POSITIVE Performe d at [facility] = 20) Laboratory Serv [facility] Blood Bank3 [address] [facility] s [address]ke Free: [phone] A No. [id number] IAT (test code = Negative Performed a t [facility] 1185) Laboratory Serv [facility] Blood Bank3 [facility] [place] [address]kn[place] Free: [phone] A No. [id number] [facility] 1 [id number] 15:09:51 1. ?Interval development of a large pneumoperitoneum.2. ?No interval change in lung findings. The findings of this study, including pneumoperitoneum, have been discussedwith and acknowledged by Dr. Haines over the phone on 04/06/2020 at 0931amwith readback. 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 FINDINGS: Lines/tubes: Enteric tube c ourses over the midline and inferiorly beyondthe diaphragm and qxzmz-vj-mezj. Left diaphragm is elevated with interval development of large amount offree air noted under the diaphragms, better seen on concomitant abdominalx-ray. Lungs are clear without focal consolidation, pleural effusion orpneumothorax. The cardiomediastinal silhouette is stable. ?No acute osseousabnormalities. 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 Left diaphragm is elevated with interval development of large amount offree air noted under the diaphragms, better seen on concomitant abdominalx-ray. Lungs are clear without focal consolidation, pleural effusion orpneumothorax.The cardiomediastinal silhouette is stable. No acute osseousabnormalities.IMPRESSION1. Interval development of a large pneumoperitoneum.2. No interval change in lung findings.The findings of this study, including pneumoperitoneum, have been discussedwith and acknowledged by Dr. Haines over the phone on 04/06/2020 at 0931amwith readback. Preliminary R eport Dictated by Resident: Jovanna Bhandari MD., have reviewed this study and agree with the abovereport.[facility] [id number] 14:52:37Ana Syed MD ? ? 04/06/2020 ?9:53 AM Central Line Date/Time: 04/06/2020 9:40 AMPerformed by: Cynthia Herring MD Central Line Placement: ?Ultrasound-Guided: ultrasound guided ? ?Patient Location: ?OR ?Indication: central venous access ?Staff: ?Supervising Anesthesiologist: ?Cynthia Herring MD ?Anesthesiologist: ?Cynthia Herring MDSterility and Timeout Preparation: provider hand hygiene prior to procedure, provider used sterile gloves, gown, hat, mask and maximum barrier technique (sterile drape) was used ?Procedure Detail: ?Patient Position: ?Trendelenburg ?Laterality: ?Right ?Site: ?Internal jugular ?Prep: ?Chloraprep ?Cathether Size: ?7 Fr ?Number of Lumens: ?Triple lumen ?target vein identified, needle advanced into vein and blood aspirated and guidewire advanced into vein ? ?Seldinger Technique?: Yes ? ?Intravenous Verification: verified by ultrasound and venous blood return ?all ports aspirated, all ports flushed easily, guidewire was removed intact, biopatch was applied, line was sutured in place and dressing was applied ? ?Confirmation for Venous Placement: ?UltrasoundEvents: ?Events: patient tolerated procedure well with no complications ? [facility] [id number] 14:52:37Ana Syed MD ? ? 04/06/2020 ?9:53 AM Central Line Date/Time: 04/06/2020 9:40 AMPerformed by: Cynthia Herring MD Central Line Placement: ?Ultrasound-Guided: ultrasound guided ? ?Patient Location: ?OR ?Indication: central venous access ?Staff: ?Supervising Anesthesiologist: ?Cynthia Herring MD ?Anesthesiologist: ?Cynthia Herring MDSterility and Timeout Preparation: provider hand hygiene prior to procedure, provider used sterile gloves, gown, hat, mask and maximum barrier technique (sterile drape) was used ?Procedure Detail: ?Patient Position: ?Trendelenburg ?Laterality: ?Right ?Site: ?Internal jugular ?Prep: ?Chloraprep ?Cathether Size: ?7 Fr ?Number of Lumens: ?Triple lumen ?target vein identified, needle advanced into vein and blood aspirated and guidewire advanced into vein ? ?Seldinger Technique?: Yes ? ?Intravenous Verification: verified by ultrasound and venous blood return ?all ports aspirated, all ports flushed easily, guidewire was removed intact, biopatch was applied, line was sutured in place and dressing was applied ? ?Confirmation for Venous Placement: ?UltrasoundEvents: ?Events: patient tolerated procedure well with no complications ? [facility] Branch[facility] [id number] 14:51:44Ana Syed MD ? ? 04/06/2020 ?9:52 AM Arterial Line Date/Time: 04/06/2020 9:21 AMPerformed by: Ana Syed MD Arterial Line Placement: ?Ultrasound-Guided: ultrasound guided ? ?Patient Location: ?OR ?Indication: continuous blood pressure monitoring and blood sampling needed ?Staff: ?Supervising Anesthesiologist: ?Cynthia Herring MD ?Resident: ?Ana Syed MDProcedure Detail: ?Catheter Size: ?20 gauge ?Catheter Length: ?1 and 3/4 inch ?Catheter Type: ?Arrow ?Seldinger Technique?: No ? ?Laterality: ?Right ?Site: ?Radial artery ?Line Secured: ?Biopatch, Tegaderm andtape ?Preparation: ?Chloroprep, drape, sterile gloves, guidewire removed intact and biopatch appliedEvents: ?Events: ?Patient tolerated procedure well with no complications and all wires accounted for _ [facility] BranchArterial [id number] 14:51:44Ana Syed MD ? ? 04/06/2020 ?9:52 AM Arterial Line Date/Time: 04/06/2020 9:21 AMPerformed by: Ana Syed MD Arterial Line Placement: ?Ultrasound- Guided: ultrasound guided ? ?Patient Location: ?OR ?Indication: continuous blood pressure monitoring and blood sampling needed ?Staff: ?Supervising Anesthesiologist: ?Cynthia Herring MD ?Resident: ?Ana Syed MDProcedure Detail: ?Catheter Size: ?20 gauge ?Catheter Length: ?1 and 3/4 inch ?Catheter Type: ?Arrow ?Seldinger Technique?: No ? ?Laterality: ?Right ?Site: ?Radial artery ?Line Secured: ?Biopatch, Tegaderm andtape ?Preparation: ?Chloroprep, drape, sterile gloves, guidewire removed intact and biopatch appliedEvents: ?Events: ?Patient tolerated procedure well with no complications and all wires accounted for _ [facility] WITH [id number] 13:22:00 Test Item Value Reference Range Interpretation Comments WBC (test code = See_Comment LL [Automated 9523-2) message] The system which generated this result transmitted reference range : 4.20 - 10.70 10*3/?L. The reference range was not used to interpret this result as normal/abnormal . RBC (test code = See_Comment [Automated 809-8) message] The system which generated this result transmitted reference range : 4.26 - 5.52 10*6/?L. The reference range was not used to interpret this result as normal/abnormal . HGB (test code = 13.3 g/dL 12.2-16.4 718-7) HCT (test code = 41.4 % 38.4-49.3 4544-3) MCV (test code = 89.8 fL 81.7-95.6 787-2) MCH (test code = 28.9 pg 26.1-32.7 785-6) MCHC (test code = 32.1 g/dL 31.2-35 786-4) RDW-SD (test code = 47.8 fL 38.5-51.6 22088-4) RDW-CV (test code = 14.6 % 12.1-15.4 788-0) PLT (test code = See_Comment [Automated 777-3) message] The system which generated this result transmitted reference range : 150 - 328 10*3/?L. The reference range was not used to interpret this result as normal/abnormal . MPV (test code = 12.1 fL 9.8-13 11931-2) NRBC/100 WBC (test See_Comment [Automat ed code = 0689928798) message] The system which generated this result transmitted reference range : 0.0 - 10.0 /100 WBCs. The reference range was not used to interpret this result as normal/abnormal . NRBC x10^3 (test code <0.01 See_Comment [Auto mated = 0218258342) message] The system which generated this result transmitted reference range : 10*3/?L. The reference range was not used to interpret this result as normal/abnormal . GRAN MAT (NEUT) % 71.6 % (test code = 770-8) IMM GRAN % (test code 0.90 % = 8344868732) LYMPH % (test code = 18.3 % 736-9) MONO % (test code = 9.2 % 5905-5) EOS % (test code = 0.0 % 713-8) BASO % (test code = 0.0 % 706-2) GRAN MAT x10^3(ANC) 0.78 10*3/uL 1.99-6.95 L (test code = 9410848216) IMM GRAN x10^3 (test <0.03 0-0.06 code = 2777117049) LYMPH x10^3 (test 0.20 10*3/uL 1.09-3.23 L code = 731-0) MONO x10^3 (test code 0.10 10*3/uL 0.36-1.02 L = 742-7) EOS x10^3 (test code <0.03 0.06-0.53 L = 711-2) BASO x10^3 (test code <0.03 0.01-0.09 = 704-7) GOLDEN CELLS (test code 2+ See_Comment A [Auto mated = 5990-9) message] The system which generated this result transmitted reference range : (none). The reference range was not used to interpret this result as normal/abnormal . BANDS (test code = MARKED INCREASED A 8447418756) Lab Interpretation Abnormal (test code = 42838-3) [facility] METABOLIC PANEL (NA, K, CL, CO2, GLUCOSE, BUN, CREATININE, CA)2020-04-06 12:38:00 Test Item Value Reference Range Interpretation Comments NA (test code = 134 mmol/L 135-145 L 8054262423) K (test code = 4.5 mmol/L 3.5-5 0149580688) CL (test code = 105 mmol/L 98-108 1792702321) CO2 TOTAL (test code = 18 mmol/L 23-31 L 3336837243) AGAP (test code = 2-16 2058061487) BUN (test code = 30 mg/dL 7-23 H 3105879755) GLUCOSE (test code = 117 mg/dL 70-110 H 4998440305) CREATININE (test code = 1.95 mg/dL 0.6-1.25 H 3293288990) CALCIUM (test code = 8.6 mg/dL 8.6-10.6 0220320976) eGFR Calculation mL/min/1.73m2 (Non-) (test code = 8860212299) eGFR Calculation mL/min/1.73m2 () (test code = 7572038978) GILBERTO (test code = GILBERTO) Association of Glomerular Filtration Rate (GFR) and Staging of Kidney Disease* + --+ --+ ------+| GFR (mL/min/1.73 m2) ?| With Kidney Damage ?| ?Without Kidney Damage+ --------+ --------+ +| ?>90 ?| ?Stage one ?| ? Normal ?+ ---+ ---+ -------+| ?60-89 ?| ?Stage two ?| ? Decreased GFR ? + --+ --+ ------+| ?30-59 ?| ?Stage three ?| ? Stage three ? + --+ --+ ------+| ?15-29 ?| ?Stage four ? | ? Stage four ?+ ---+ ---+ -------+| ?<15 (or dialysis) ? ?| ?Stage five ? | ? Stage five ?+ ---+ ---+ -------+ *Each stage assumes the associated GFR level has been in effect for at least three months. ?Stages 1 to 5, with or without kidney disease, indicate chronic kidney disease. Notes: Determination of stages one and two (with eGFR >59mL/min/1.73 m2) requires estimation of kidney damage for at least three months as defined by structural or functional abnormalities of the kidney, manifested by either:Pathological abnormalities or Markers of kidney damage (including abnormalities in the composition of the blood or urine or abnormalities in imaging tests). Lab Interpretation Abnormal (test code = 68940-8) [facility] Test Item Value Reference Range Interpretation Comments MAGNESIUM (test code = 5724032804) 2.3 mg/dL 1.7-2.4 Lab Interpretation (test code = Normal 06492-7) [facility] [id number] 23:28:32 Prominent gaseous distention of small bowel and massive distention of thestomach. Findings likely represent postoperative ileus in the perioperativesetting. No definite transition point identified. Paucity of gas within thepelvis, nonspecific. Small bowel obstruction is possible but felt lesslikely given relatively acute perioperative course. Correlate with physicalexam. Preliminary Report Dictated b y Resident: Louis Donnelly MD., have reviewed this study and agree with theabovereport.EXAM: XR KUB HISTORY: 50-year-old male status post total abdominal colectomy withileorectal anastomosis on 04/03/2020. History of colonic dysmotility. COMPARISON: CT abdomen 03/30/2020, CT abdomen 03/25/2020, acute abdominalseries 03/02/2020 TECHNIQUE: AP views of the abdomen and pelvis. Note: Left hemidiaphragm isnot fully within gleqg-pr-npam. FINDINGS: Status post colectomy. Massive gaseous distention of the stomach and to lesser degree of smallbowel. Paucity of gas within the anorectal region and lower pelvis.Multiple surgical clips project over the right lower quadrant. Staplesproject over the midline. No pneumoperitoneum within limits of single AP technique. [facility], Radiant Results Inft User - 04/05/2020 6:29 PM CDTEXAM: XR KUBHISTORY: 50-year-old male status post total abdominal colectomy withileorectal anastomosis on 04/03/2020. History of colonic dysmotility.COMPARISON: CT abdomen 03/30/2020, CT abdomen 03/25/2020, acute abdominalseries 03/02/2020TECHNIQUE: AP views of the abdomen and pelvis.Note: Left hemidiaphragm isnot fully within ewpen-lq-btbk.FINDINGS:Status post colectomy.Massive gaseous distention of the stomach and to lesser degree of smallbowel. Paucity of gas within the anorectal region and lower pelvis.Multiple surgical clips project over the right lower quadrant. Staplesproject over the midline. No pneumoperitoneum within limits of single AP technique.IMPRESSIONProminent gaseous distention of small bowel and massive distention of thestomach. Findings likely represent postoperative ileus in the perioperativesetting. No definite transition point identified. Paucity of gas within thepelvis, nonspecific. Small bowel obstruction is possible but felt lesslikely given relativelyacute perioperative course. Correlate with physicalexam.Preliminary Report Dictated by Resident: Louis Muller MD., have reviewed this study and agree with theabove report. [facility] [id number] 23:22:45 Esophogastric tube tip projects over the stomach fundus. Redemonstration of extensive small bowel dilatation in the recentpostoperative setting status post total colectomy with ileoanalanastomosis. Findings may represent severe ileus. Correlate clinically. Preliminary Report Dictated by Resident: Louis Donnelly MD., have reviewed this study and agree with theabove report.EXAM: XRKUB HISTORY: post ngt placement COMPARISON: [email or web address] 04/05/2020 Technique: Single AP view of the upper abdomen. Note: Bilateralhemidiaphragms and upper abdomen are not within gvqzg-fk-qtwq. FINDINGS: The tipof the esophogastric tube projects over the expected position ofstomach fundus with the side-port projecting over the proximal stomach. Significant distention of small bowel and stomach minimally improved fromreference exam from 04/22/2020 at 14:49. No evidence of pneumoperitoneumwithin limits of supine exam. Surgical carmenza project over the midline andbilateral mid to lower abdomen. [facility], Radiant Results Inft User - 04/05/2020 6:23 PM CDTEXAM: XR KUBHISTORY: post ngt placement COMPARISON: KUB 04/05/2020Technique: Single AP view of the upper abdomen. Note: Bilateralhemidiaphragms and upper abdomen are not within gbxvd-gt-jaou.FINDINGS:The tip of the esophogastric tube projects over the expected position ofstomach fundus with the side-port projecting over the proximal stomach.Significant distentionof small bowel and stomach minimally improved fromreference exam from 04/22/2020 at 14:49. No evidence of pneumoperitoneumwithin limits of supine exam. Surgical carmenza project over the midline andbilateral mid to lower abdomen.IMPRESSIONEsophogastric tube tip projects over the stomach fundus. Redemonstration of extensive small bowel dilatation in the recentpostoperative setting status post total colectomy with ileoanalanastomosis. Findings may represent severe ileus. Correlate clinically. Preliminary Report Dictated by Resident: Louis Muller MD., have reviewed this study and agree with theabove report.[facility] METABOLIC PANEL (NA, K, CL, CO2, GLUCOSE, BUN, CREATININE, CA)2020-04-05 11:08:00 Test Item Value Reference Range Interpretation Comments NA (test code = 137 mmol/L 135-145 1715990994) K (test code = 4.4 mmol/L 3.5-5 5786995066) CL (test code = 104 mmol/L 98-108 1230593915) CO2 TOTAL (test code = 24 mmol/L 23-31 4448583292) AGAP (test code = 2-16 7279486052) BUN (test code = 10 mg/dL 7-23 4157910906) GLUCOSE (test code = 104 mg/dL 70-110 1019915776) CREATININE (test code 1.18 mg/dL 0.6-1.25 = 5764905470) CALCIUM (test code = 8.7 mg/dL 8.6-10.6 6368915077) eGFR Calculation mL/min/1.73m2 (Non-) (test code = 8610941141) eGFR Calculation mL/min/1.73m2 () (test code = 2253626212) GILBERTO (test code = GILBERTO) Association of Glomerular Filtration Rate (GFR) and Staging of Kidney Disease* + -+ + ---+| GFR (mL/min/1.73 m2) ?| With Kidney Damage ?| ?Without Kidney Damage+ -------+ ------+ ---------+| ?>90 ?| ?Stage one ?| ? Normal ?+ --+ -+ ----+| ?60-89 ?| ?Stage two ?| ? Decreased GFR ? + -+ + ---+| ?30-59 ?| ?Stage three ?| ? Stage three ? + -+ + ---+| ?15-29 ?| ?Stage four ? | ? Stage four ?+ --+ -+ ----+| ?<15 (or dialysis) ? ?| ?Stage five ? | ? Stage five ?+ --+ -+ ----+ *Each stage assumes the associated GFR level has been in effect for at least three months. ?Stages 1 to 5, with or without kidney disease, indicate chronic kidney disease. Notes: Determination of stages one and two (with eGFR >59mL/min/1.73 m2) requires estimation of kidney damage for at least three months as defined by structural or functional abnormalities of the kidney, manifested by either:Pathological abnormalities or Markers of kidney damage (including abnormalities in the composition of the blood or urine or abnormalities in imaging tests). [facility]2020-[facility]-13 11:08:00 Test Item Value Reference Range Interpretation Comments MAGNESIUM (test code = 2891729528) 2.3 mg/dL 1.7-2.4 Lab Interpretation (test code = Normal 83981-3) [facility] WITH [id number] 10:32:00 Test Item Value Reference Range Interpretation Comments WBC (test code = See_Comment [Automated 0890-2) message] The sy stem which generated this result transmitted reference range : 4.20 - 10.70 10*3/?L. The reference range was not used to interpret this result as normal/abnormal . RBC (test code = See_Comment L [Automated 699-8) message] The sy stem which generated this result transmitted reference range : 4.26 - 5.52 10*6/?L. The reference range was not used to interpret this result as normal/abnormal . HGB (test code = 11.5 g/dL 12.2-16.4 L 718-7) HCT (test code = 35.8 % 38.4-49.3 L 4544-3) MCV (test code = 89.7 fL 81.7-95.6 787-2) MCH (test code = 28.8 pg 26.1-32.7 785-6) MCHC (test code = 32.1 g/dL 31.2-35 786-4) RDW-SD (test code = 47.8 fL 38.5-51.6 63895-8) RDW-CV (test code = 14.6 % 12.1-15.4 788-0) PLT (test code = See_Comment [Automated 777-3) message] The sy stem which generated this result transmitted reference range : 150 - 328 10*3/ ?L. The reference r meredith was not used to interpret this result as normal/abnormal . MPV (test code = 11.6 fL 9.8-13 84837-4) NRBC/100 WBC (test See_Comment [Automat ed code = 3296191247) message] The system which generated this result transmitted reference range : 0.0 - 10.0 /100 WBCs. The refer ence range was not u sed to interpret th is result as normal/abnormal . NRBC x10^3 (test code <0.01 See_Comment [Auto mated = 8316250048) message] The s ystem which generated this result transmitted reference range : 10*3/?L. The reference range was not used to interpret this result as normal/abnormal . GRAN MAT (NEUT) % 82.4 % (test code = 770-8) IMM GRAN % (test code 0.30 % = 3707207048) LYMPH % (test code = 12.4 % 736-9) MONO % (test code = 4.5 % 5905-5) EOS % (test code = 0.2 % 713-8) BASO % (test code = 0.2 % 706-2) GRAN MAT x10^3(ANC) 5.12 10*3/uL 1.99-6.95 (test code = 7950886403) IMM GRAN x10^3 (test <0.03 0-0.06 code = 2642900053) LYMPH x10^3 (test code 0.77 10*3/uL 1.09-3.23 L = 731-0) MONO x10^3 (test code 0.28 10*3/uL 0.36-1.02 L = 742-7) EOS x10^3 (test code = <0.03 0.06-0.53 L 711-2) BASO x10^3 (test code <0.03 0.01-0.09 = 704-7) Lab Interpretation Abnormal (test code = 59194-9) [facility] (NA, K, CL, CO2, GLUCOSE, BUN, CREATININE, CA)2020-04-04 11:02:00 Test Item Value Reference Range Interpretation Comments NA (test code = 135 mmol/L 135-145 3068539373) K (test code = 4.4 mmol/L 3.5-5 Slight 6999614990) hemolysis CL (test code = 103 mmol/L 98-108 8378187968) CO2 TOTAL (test code 26 mmol/L 23-31 = 4429626829) AGAP (test code = 2-16 8809816096) BUN (test code = 7 mg/dL 7-23 Slight 8081911311) hemolysis GLUCOSE (test code = 119 mg/dL 70-110 H 4435272205) CREATININE (test code 0.95 mg/dL 0.6-1.25 = 4972949224) CALCIUM (test code = 8.3 mg/dL 8.6-10.6 L 5154076857) eGFR Calculation mL/min/1.73m2 (Non-) (test code = 2109101095) eGFR Calculation mL/min/1.73m2 () (test code = 2948333900) GILBERTO (test code = GILBERTO) Association of Glomerular Filtration Rate (GFR) and Staging of Kidney Disease* + -----+ --------+ +| GFR (mL/min/1.73 m2) ?| With Kidney Damage ?| ?Without Kidney Damage+ +------- +---- --+| ?>90 ?| ?Stage one ?| ? Normal ?+ ------+ ---------+--------- +| ?60-89 ?| ?Stage two ?| ? Decreased GFR ? + -----+ --------+ +| ?30-59 ?| ?Stage three ?| ? Stage three ? + -----+ --------+ +| ?15-29 ?| ?Stage four ? | ? Stage four ?+ ------+ ---------+--------- +| ?<15 (or dialysis) ? ?| ?Stage five ? | ? Stage five ?+ ------+ ---------+--------- + *Each stage assumes the associated GFR level has been in effect for at least three months. ?Stages 1 to 5, with or without kidney disease, indicate chronic kidney disease. Notes: Determination of stages one and two (with eGFR >59mL/min/1.73 m2) requires estimation of kidney damage for at least three months as defined by structural or functional abnormalities of the kidney, manifested by either:Pathological abnormalities or Markers of kidney damage (including abnormalities in the composition of the blood or urine or abnormalities in imaging tests). Lab Interpretation Abnormal (test code = 98175-3) [facility]2020-08-12 11:02:00 Test Item Value Reference Range Interpretation Comments MAGNESIUM (test code = 8231222160) 1.7 mg/dL 1.7-2.4 Lab Interpretation (test code = Normal 02087-8) [facility] WITH [id number] 10:31:00 Test Item Value Reference Range Interpretation Comments WBC (test code = See_Comment [Automated 6690-2) message] The sy stem which generated this result transmitted reference range : 4.20 - 10.70 10*3/?L. The reference range was not used to interpret this result as normal/abnormal . RBC (test code = See_Comment L [Automated 789-8) message] The sy stem which generated this result transmitted reference range : 4.26 - 5.52 10*6/?L. The reference range was not used to interpret this result as normal/abnormal . HGB (test code = 11.5 g/dL 12.2-16.4 L 718-7) HCT (test code = 35.2 % 38.4-49.3 L 4544-3) MCV (test code = 89.6 fL 81.7-95.6 787-2) MCH (test code = 29.3 pg 26.1-32.7 785-6) MCHC (test code = 32.7 g/dL 31.2-35 786-4) RDW-SD (test code = 46.5 fL 38.5-51.6 29848-3) RDW-CV (test code = 14.3 % 12.1-15.4 788-0) PLT (test code = See_Comment L [Automated 777-3) message] The sy stem which generated this result transmitted reference range : 150 - 328 10*3/ ?L. The reference r meredith was not used to interpret this result as normal/abnormal . MPV (test code = 11.2 fL 9.8-13 79444-6) NRBC/100 WBC (test See_Comment [Automat ed code = 0487089105) message] The system which generated this result transmitted reference range : 0.0 - 10.0 /100 WBCs. The refer ence range was not u sed to interpret th is result as normal/abnormal . NRBC x10^3 (test code <0.01 See_Comment [Auto mated = 0332942846) message] The s ystem which generated this result transmitted reference range : 10*3/?L. The reference range was not used to interpret this result as normal/abnormal . GRAN MAT (NEUT) % 76.7 % (test code = 770-8) IMM GRAN % (test code 0.30 % = 4573666487) LYMPH % (test code = 16.4 % 736-9) MONO % (test code = 6.2 % 5905-5) EOS % (test code = 0.2 % 713-8) BASO % (test code = 0.2 % 706-2) GRAN MAT x10^3(ANC) 5.12 10*3/uL 1.99-6.95 (test code = 3629988743) IMM GRAN x10^3 (test <0.03 0-0.06 code = 4737463425) LYMPH x10^3 (test code 1.09 10*3/uL 1.09-3.23 = 731-0) MONO x10^3 (test code 0.41 10*3/uL 0.36-1.02 = 742-7) EOS x10^3 (test code = <0.03 0.06-0.53 L 711-2) BASO x10^3 (test code <0.03 0.01-0.09 = 704-7) Lab Interpretation Abnormal (test code = 04208-1) [facility] WITH [id number] 11:04:00 Test Item Value Reference Range Interpretation Comments WBC (test code = See_Comment L [Automated 6690-2) message] The sy stem which generated this result transmitted reference range : 4.20 - 10.70 10*3/?L. The reference range was not used to interpret this result as normal/abnormal . RBC (test code = See_Comment L [Automated 789-8) message] The sy stem which generated this result transmitted reference range : 4.26 - 5.52 10*6/?L. The reference range was not used to interpret this result as normal/abnormal . HGB (test code = 11.3 g/dL 12.2-16.4 L 718-7) HCT (test code = 35.6 % 38.4-49.3 L 4544-3) MCV (test code = 89.7 fL 81.7-95.6 787-2) MCH (test code = 28.5 pg 26.1-32.7 785-6) MCHC (test code = 31.7 g/dL 31.2-35 786-4) RDW-SD (test code = 45.6 fL 38.5-51.6 07342-9) RDW-CV (test code = 14.0 % 12.1-15.4 788-0) PLT (test code = See_Comment L [Automated 777-3) message] The sy stem which generated this result transmitted reference range : 150 - 328 10*3/ ?L. The reference r meredith was not used to interpret this result as normal/abnormal . MPV (test code = 11.2 fL 9.8-13 23329-9) NRBC/100 WBC (test See_Comment [Automat ed code = 5609547849) message] The system which generated this result transmitted reference range : 0.0 - 10.0 /100 WBCs. The refer ence range was not u sed to interpret th is result as normal/abnormal . NRBC x10^3 (test code <0.01 See_Comment [Auto mated = 8246573439) message] The s ystem which generated this result transmitted reference range : 10*3/?L. The reference range was not used to interpret this result as normal/abnormal . GRAN MAT (NEUT) % 52.7 % (test code = 770-8) IMM GRAN % (test code 0.30 % = 3554485499) LYMPH % (test code = 34.6 % 736-9) MONO % (test code = 9.6 % 5905-5) EOS % (test code = 2.2 % 713-8) BASO % (test code = 0.6 % 706-2) GRAN MAT x10^3(ANC) 1.88 10*3/uL 1.99-6.95 L (test code = 4164670199) IMM GRAN x10^3 (test <0.03 0-0.06 code = 5745210354) LYMPH x10^3 (test code 1.23 10*3/uL 1.09-3.23 = 731-0) MONO x10^3 (test code 0.34 10*3/uL 0.36-1.02 L = 742-7) EOS x10^3 (test code = 0.08 10*3/uL 0.06-0.53 711-2) BASO x10^3 (test code <0.03 0.01-0.09 = 704-7) REACT LYMPHS (test Rare code = 2751483431) Lab Interpretation Abnormal (test code = 68867-2) [facility] METABOLIC PANEL (NA, K, CL, CO2, GLUCOSE, BUN, CREATININE, CA)2020-04-03 10:54:00 Test Item Value Reference Range Interpretation Comments NA (test code = 140 mmol/L 135-145 9384556729) K (test code = 3.9 mmol/L 3.5-5 8525013750) CL (test code = 107 mmol/L 98-108 5174501462) CO2 TOTAL (test code = 28 mmol/L 23-31 3052262623) AGAP (test code = 2-16 4866680470) BUN (test code = 4 mg/dL 7-23 L 2750970050) GLUCOSE (test code = 88 mg/dL 70-110 0140166255) CREATININE (test code = 0.96 mg/dL 0.6-1.25 0024343987) CALCIUM (test code = 8.6 mg/dL 8.6-10.6 9096106080) eGFR Calculation mL/min/1.73m2 (Non-) (test code = 8022653226) eGFR Calculation mL/min/1.73m2 () (test code = 2256325089) GILBERTO (test code = GILBERTO) Association of Glomerular Filtration Rate (GFR) and Staging of Kidney Disease* + --+ --+ ------+| GFR (mL/min/1.73 m2) ?| With Kidney Damage ?| ?Without Kidney Damage+ --------+ --------+ +| ?>90 ?| ?Stage one ?| ? Normal ?+ ---+ ---+ -------+| ?60-89 ?| ?Stage two ?| ? Decreased GFR ? + --+ --+ ------+| ?30-59 ?| ?Stage three ?| ? Stage three ? + --+ --+ ------+| ?15-29 ?| ?Stage four ? | ? Stage four ?+ ---+ ---+ -------+| ?<15 (or dialysis) ? ?| ?Stage five ? | ? Stage five ?+ ---+ ---+ -------+ *Each stage assumes the associated GFR level has been in effect for at least three months. ?Stages 1 to 5, with or without kidney disease, indicate chronic kidney disease. Notes: Determination of stages one and two (with eGFR >59mL/min/1.73 m2) requires estimation of kidney damage for at least three months as defined by structural or functional abnormalities of the kidney, manifested by either:Pathological abnormalities or Markers of kidney damage (including abnormalities in the composition of the blood or urine or abnormalities in imaging tests). Lab Interpretation Abnormal (test code = 70904-2) [facility] 10:54:00 Test Item Value Reference Range Interpretation Comments MAGNESIUM (test code = 7780272173) 2.0 mg/dL 1.7-2.4 Lab Interpretation (test code = Normal 54830-1) [facility] Center[facility] Screen - ONCE [id number] 23:40:25 Test Item Value Reference Range Interpretation Comments ABO & RH (test code O POSITIVE Performe d at [facility] = 20) Laboratory Serv [facility] [facility] [address] Free: [phone] A No. [id number] IAT (test code = Negative Performed a t [facility] 1185) Laboratory Serv [facility] Blood [facility] [address] Free: [phone] A No. [id number] [facility] WITH [id number] 11:21:00 Test Item Value Reference Range Interpretation Comments WBC (test code = See_Comment L [Automated 6690-2) message] The sy stem which generated this result transmitted reference range : 4.20 - 10.70 10*3/?L. The reference range was not used to interpret this result as normal/abnormal . RBC (test code = See_Comment L [Automated 789-8) message] The sy stem which generated this result transmitted reference range : 4.26 - 5.52 10*6/?L. The reference range was not used to interpret this result as normal/abnormal . HGB (test code = 11.0 g/dL 12.2-16.4 L 718-7) HCT (test code = 34.3 % 38.4-49.3 L 4544-3) MCV (test code = 89.6 fL 81.7-95.6 787-2) MCH (test code = 28.7 pg 26.1-32.7 785-6) MCHC (test code = 32.1 g/dL 31.2-35 786-4) RDW-SD (test code = 45.8 fL 38.5-51.6 08340-0) RDW-CV (test code = 14.2 % 12.1-15.4 788-0) PLT (test code = See_Comment L [Automated 777-3) message] The sy stem which generated this result transmitted reference range : 150 - 328 10*3/ ?L. The reference r meredith was not used to interpret this result as normal/abnormal . MPV (test code = 10.6 fL 9.8-13 52068-0) NRBC/100 WBC (test See_Comment [Automat ed code = 5009582136) message] The system which generated this result transmitted reference range : 0.0 - 10.0 /100 WBCs. The refer ence range was not u sed to interpret th is result as normal/abnormal . NRBC x10^3 (test code <0.01 See_Comment [Auto mated = 6622792793) message] The s ystem which generated this result transmitted reference range : 10*3/?L. The reference range was not used to interpret this result as normal/abnormal . GRAN MAT (NEUT) % 46.4 % (test code = 770-8) IMM GRAN % (test code 0.30 % = 4912396875) LYMPH % (test code = 38.8 % 736-9) MONO % (test code = 10.5 % 5905-5) EOS % (test code = 3.3 % 713-8) BASO % (test code = 0.7 % 706-2) GRAN MAT x10^3(ANC) 1.41 10*3/uL 1.99-6.95 L (test code = 5467827785) IMM GRAN x10^3 (test <0.03 0-0.06 code = 7414749843) LYMPH x10^3 (test code 1.18 10*3/uL 1.09-3.23 = 731-0) MONO x10^3 (test code 0.32 10*3/uL 0.36-1.02 L = 742-7) EOS x10^3 (test code = 0.10 10*3/uL 0.06-0.53 711-2) BASO x10^3 (test code <0.03 0.01-0.09 = 704-7) HYPERSEG NEUTS (test Present See_Comment A [Autom ated code = 765-8) message] The s ystem which generated this result transmitted reference range : (none). The reference range was not used to interpret this result as normal/abnormal . Lab Interpretation Abnormal (test code = 67301-7) [facility] METABOLIC PANEL (NA, K, CL, CO2, GLUCOSE, BUN, CREATININE, CA)2020-04-02 11:05:00 Test Item Value Reference Range Interpretation Comments NA (test code = 139 mmol/L 135-145 9686117206) K (test code = 4.0 mmol/L 3.5-5 9855756488) CL (test code = 108 mmol/L 98-108 9679317350) CO2 TOTAL (test code = 25 mmol/L 23-31 3762927465) AGAP (test code = 2-16 1844403999) BUN (test code = 6 mg/dL 7-23 L 7775209055) GLUCOSE (test code = 99 mg/dL 70-110 3063327354) CREATININE (test code = 0.92 mg/dL 0.6-1.25 0126035684) CALCIUM (test code = 8.3 mg/dL 8.6-10.6 L 1622730471) eGFR Calculation mL/min/1.73m2 (Non-) (test code = 0037742585) eGFR Calculation mL/min/1.73m2 () (test code = 6977652339) GILBERTO (test code = GILBERTO) Association of Glomerular Filtration Rate (GFR) and Staging of Kidney Disease* + --+ --+ ------+| GFR (mL/min/1.73 m2) ?| With Kidney Damage ?| ?Without Kidney Damage+ --------+ --------+ +| ?>90 ?| ?Stage one ?| ? Normal ?+ ---+ ---+ -------+| ?60-89 ?| ?Stage two ?| ? Decreased GFR ? + --+ --+ ------+| ?30-59 ?| ?Stage three ?| ? Stage three ? + --+ --+ ------+| ?15-29 ?| ?Stage four ? | ? Stage four ?+ ---+ ---+ -------+| ?<15 (or dialysis) ? ?| ?Stage five ? | ? Stage five ?+ ---+ ---+ -------+ *Each stage assumes the associated GFR level has been in effect for at least three months. ?Stages 1 to 5, with or without kidney disease, indicate chronic kidney disease. Notes: Determination of stages one and two (with eGFR >59mL/min/1.73 m2) requires estimation of kidney damage for at least three months as defined by structural or functional abnormalities of the kidney, manifested by either:Pathological abnormalities or Markers of kidney damage (including abnormalities in the composition of the blood or urine or abnormalities in imaging tests). Lab Interpretation Abnormal (test code = 23598-5) [facility]2020-[facility]-10 11:05:00 Test Item Value Reference Range Interpretation Comments MAGNESIUM (test code = 3220668389) 2.0 mg/dL 1.7-2.4 Lab Interpretation (test code = Normal 74503-4) [facility] CenterCOVID[facility] (ID NOW RAPID TESTING)2020-04-02 00:43:00 Test Item Value Reference Range Interpretation Comments SARS-CoV-2 Rapid ID NOW Not Detected Not Detected (test code = 95027-8) GILBERTO (test code = GILBERTO) ID NOW COVID-19 Assay is an isothermal nucleic acid amplification test intended for the qualitative detection of nucleic acid from SARS-CoV-2 viral RNA in nasopharyngeal (HUMAN GEOGRAP[employer] INSTRUCTOR) specimens. It is used under Emergency Use Authorization (EUA) by FDA. The limit of detection (LOD) of the assay is 125 Genome Equivalents/mL. A positive result is indicative of the presence of SARS-CoV-2 RNA. ?Clinical correlation with patient history and other diagnostic information is necessary to determine patient infection status. A negative (Not Detected) result does not preclude SARS-CoV-2 infection. In patients with clinical symptoms and other tests that are consistent with SARS-CoV-2 infection, negative results should be treated as presumptive negative and a new specimen should be tested with alternative PCR molecular test. Invalid: Please collect a new specimen for repeat patient testing if clinically indicated. Lab Interpretation Normal (test code = 97675-3) [facility] CenterUrinalysis2020-08-08 11:39:00 Test Item Value Reference Range Interpretation Comments APPEARANCE (test code = Hazy Clear A 5133711667) COLOR (test code = Yellow Yellow 1393856477) PH (test code = 4.8-8.0 2926766332) SP GRAVITY (test code = 1.003-1.030 H 4964477925) GLU U QUAL (test code = Normal Normal 1821849150) BLOOD (test code = Negative Negative 5038865024) KETONES (test code = 5 mg/dL Negative A 8653981312) PROTEIN (test code = Negative Negative 2887-8) UROBILIN (test code = 2.0 mg/dL Normal A 6574552274) BILIRUBIN (test code = Negative Negative 3689146337) NITRITE (test code = Negative Negative 7577113831) LEUK ROGER (test code = Negative Negative 9243011722) RBC/HPF (test code = See_Comment [Autom ated message] 1870684263) The system [employer] generated this result transmit dain reference range : 0 - 3 HPF. The refe rence range was not u sed to interpret th is result as normal/abnormal . WBC/HPF (test code = See_Comment [Autom ated message] 5565623960) The system [employer] generated this result transmit dain reference range : 0 - 5 HPF. The refe rence range was not u sed to interpret th is result as normal/abnormal . BACTERIA (test code = Negative Negative 6296316758) CA OXALATE (test code = See_Comment H [Au tomated message] 0316519438) The system [employer] generated this result transmit dain reference range : <=1 HPF. The refere nce range was not u sed to interpret th is result as normal/abnormal . Lab Interpretation (test Abnormal code = 04913-6) [facility] CenterCT ABDOMEN PELVIS W [id number] 00:38:37 1. ?Massive air distention of the colon and proximal small bowel. This isslightly increased since the previous exam. Once again no definite point oftransition is identified although there is some mesenteric swirling seen inthe central and right abdomen. The findings could still represent profoundcolonic ileus, however some type of obstruction cannot entirely be ruledout given the degree of progressive distention. Surgical consult should beconsidered.2. No evidence of free air, pneumatosis, or focalloculated drainable fluidcollection. RL: 460 END OF REPORT ORDERING PHYSICIAN: ALEX ALVARENGA CLINICAL INFORMATION: ? Nausea, vomiting Bowelobstruction, high-grade Abdpain, acute, generalized COMPARISON: 03/25/2020 Technique: ? CT of the abdomen and pelvis was performed after theadministration of IV contrast. No p.o. contrast was used. Multip lanarreformats were also obtained. This study was performed according to ALARAprinciple for radiation dose reduction. Findings: There is no evidence of obstructive uropathy. No suspicious renalparenchymal abnormalities are seen. The colon is massively distended withair. Measures up to 13 cm in diameter. No definite clear point oftransition is identified. Due to the severe distention of multipleadjoining loops of bowel it is difficult to identify the specific segments.The distal small bowel also appears grossly distended. There is evidence ofsome mesenteric whirling in the central and right abdomen.No evidence ofpneumatosis, free air, or focal loculated fluid collections are seen. Thereis no evidence of pneumatosis. No pathologically enlarged lymph nodes arepresent. The lung bases remain clear. There are no suspicious focal osseouslesions. [facility], Radiant Results Inft User - 03/30/2020 7:39 PM CDTORDERING PHYSICIAN: ALEX SALCEDONCLINICAL INFORMATION: Nausea, vomiting Bowel obstruction, high-grade Abdpain, acute, generalized COMPARISON: 03/25/2020Technique: CT of the abdomen and pelvis was performed after theadministration of IV contrast. No p.o. contrast was used. Multiplanarreformats were also obtained. This study was performed according to ALARAprinciple for radiation dose reduction.Findings:There is no evidence of obstructive uropathy. No suspicious renalparenchymal abnormalities are seen. The colon is massively distended withair. Measures up to 13 cm in diameter. No definite clear point oftransition is identified. Due to the severe distention of multipleadjoining loops of bowel it is difficult to identify the specific segments.The distal small bowel also appears grossly distended. There i s evidence ofsome mesenteric whirling in the central and right abdomen. No evidence ofpneumatosis, free air, or focal loculated fluid collections are seen. Thereis no evidence of pneumatosis. No pathologically enlarged lymph nodes arepresent. The lung bases remain clear. There are no suspicious focal o sseouslesions.IMPRESSION1. Massive air distention of the colon and proximal small bowel. This isslightly increased since the previous exam. Once again no definite point oftransition is identified although there is some mesenteric swirling seen inthe central and right abdomen. The findings could still r epresent profoundcolonic ileus, however some type of obstruction cannot entirely be ruledout given the degree of progressive distention. Surgical consult should beconsidered.2. No evidence of free air,pneumatosis, or focal loculated drainable fluidcollection.RL: 460END OF REPORT [facility] (NA, K, CL, CO2, GLUCOSE, BUN, CREATININE, CA)2020-03-30 23:45:00 Test Item Value Reference Range Interpretation Comments NA (test code = 140 mmol/L 135-145 1368488191) K (test code = 4.3 mmol/L 3.5-5 4381339689) CL (test code = 101 mmol/L 98-108 6123624587) CO2 TOTAL (test code = 28 mmol/L 23-31 5525765099) AGAP (test code = 2-16 3898639685) BUN (test code = 24 mg/dL 7-23 H 0619096032) GLUCOSE (test code = 90 mg/dL 70-110 0356760610) CREATININE (test code = 1.29 mg/dL 0.6-1.25 H 6493093168) CALCIUM (test code = 9.4 mg/dL 8.6-10.6 7157073977) eGFR Calculation mL/min/1.73m2 (Non-) (test code = 7902610325) eGFR Calculation mL/min/1.73m2 () (test code = 2971077960) GILBERTO (test code = GILBERTO) Association of Glomerular Filtration Rate (GFR) and Staging of Kidney Disease* + --+ --+ ------+| GFR (mL/min/1.73 m2) ?| With Kidney Damage ?| ?Without Kidney Damage+ --------+ --------+ +| ?>90 ?| ?Stage one ?| ? Normal ?+ ---+ ---+ -------+| ?60-89 ?| ?Stage two ?| ? Decreased GFR ? + --+ --+ ------+| ?30-59 ?| ?Stage three ?| ? Stage three ? + --+ --+ ------+| ?15-29 ?| ?Stage four ? | ? Stage four ?+ ---+ ---+ -------+| ?<15 (or dialysis) ? ?| ?Stage five ? | ? Stage five ?+ ---+ ---+ -------+ *Each stage assumes the associated GFR level has been in effect for at least three months. ?Stages 1 to 5, with or without kidney disease, indicate chronic kidney disease. Notes: Determination of stages one and two (with eGFR >59mL/min/1.73 m2) requires estimation of kidney damage for at least three months as defined by structural or functional abnormalities of the kidney, manifested by either:Pathological abnormalities or Markers of kidney damage (including abnormalities in the composition of the blood or urine or abnormalities in imaging tests). Lab Interpretation Abnormal (test code = 31578-9) [facility] 1 [id number] 23:00:46 No evidence for an acute cardiopulmonary process. Unchanged asymmetric elevation of the left hemidiaphragm. Air-filled colon, similar to that seen on the March 02, 2020 exam. RL: ?3708 CHEST SINGLE VIEW CLINICAL HISTORY: Abdominal pain ORDERING PHYSICIAN: RENETTA ALVARENGA TECHNIQUE: Frontal view of chest COMPARISON: Chest and abdominal radiographic series performed March 02, 2020 FINDINGS: There is a normal cardiomediastinal silhouette. The pulmonary vascularitydoes not appear congested. The lungs appear clear demonstrating no focalpulmonary consolidation, pleural effusion, or pneumothorax. No acuteosseous process is observed. Asymmetric elevation of the left hemidiaphragmis unchanged. Air-filled colon is noted within the included upper abdomen.No free air is seen under the diaphragm. [facility], Radiant Results Inft User - 03/30/2020 6:01 PM CDTCHEST SINGLE VIEWCLINICAL HISTORY: Abdominal painORDERING PHYSICIAN: ALEX SALCEDONTECHNIQUE: Frontal view of chestCOMPARISON: Chest and abdominal radiographic series performed March 02, 2020FINDINGS: There is a normal cardiomediastinal silhouette. The pulmonary vascularitydoes not appear congested. The lungs appear clear demonstrating no focalpulmonary consolidation, pleural effusion, or pneumothorax. No acuteosseous process is observed. Asymmetric elevation of the left hemidiaphragmis unchanged. Air-filled colon is noted within the included upper abdomen.No free air is seen under the diaphragm.IMPRESSIONNo evidence for an acute cardiopulmonary process.Unchanged asymmetric elevation of the left hemidiaphragm.Air-filled colon, similar to that seen on the March 02, 2020 exam.RL: 3708 [facility] [id number] 22:39:00 Test Item Value Reference Range Interpretation Comments TROPONIN I (test 0.008 ng/mL See_Comment [Automated code = 8188948255) message] The system which generated this result transmitted reference range : <=0.034. The reference range was not used to interpret this result as normal/abnormal . GILBERTO (test code = Equal or Less than GILBERTO) 0.034 ng/ml---Normal ?Note: Cardiac troponin begins to rise 3-4 hours after the onset of ischemia. Repeat in 4-6 hours if the sample was drawn within 3-4 hours of the onset of the symptom and found normal. Between 0.035 and 0.120 ng/mL--- Borderline. Questionable myocardial injury or necrosis ? ?Note: Serial measurement may be necessary to confirm or exclude the diagnosis of myocardial injury or necrosis; Clinical correlation (symptoms, EKGs, imaging studies, and others) required; Repeat in 4-6 hours if clinically indicated. ? Equal or Higher than 0.121 ng/mL---Abnormal. Myocardial Injury or Necrosis Likely ? Biotin has been reported to cause a negative bias, interpret results relative to patient's use of biotin. ? Lab Interpretation Normal (test code = 74992-7) [facility] CenterN-TERMINAL [id number] 22:39:00 Test Item Value Reference Range Interpretation Comments NT-proBNP (test code 42 pg/mL See_Comment [Autom ated = 0130048920) message] The system which generated this result transmitted reference range : <=125. The reference range was not used to interpret this result as normal/abnormal . GILBERTO (test code = GILBERTO) Biotin has been reported to cause a negative bias, interpret results relative to patient's use of biotin. Lab Interpretation Normal (test code = 14426-6) [facility] CenterHep[facility] Function Panel (ALB, T.PRO, BILI T, BU/BC, ALT, AST, ALK PHOS)2020-03-30 22:27:00 Test Item Value Reference Range Interpretation Comments TOTAL BILI (test code = 9674297816) 0.5 mg/dL 0.1-1.1 BILI UNCON (test code = 6793424320) 0.3 mg/dL 0.1-1.1 BILI CONJ (test code = 8500395174) 0.0 mg/dL 0-0.3 T PROTEIN (test code = 2932376700) 6.7 g/dL 6.3-8.2 ALBUMIN (test code = 7225394939) 4.5 g/dL 3.5-5 ALK PHOS (test code = 3006500461) 57 U/L 34-122 ALTv (test code = 1742-6) 31 U/L 5-50 AST(SGOT) (test code = 1381482436) 38 U/L 13-40 Lab Interpretation (test code = Normal 11155-5) [facility] CenterLipase [id number] 22:27:00 Test Item Value Reference Range Interpretation Comments LIPASE (test code = 7082652537) 62 U/L 0-220 Lab Interpretation (test code = Normal 51782-0) [facility] CenteraPTT2020-08-07 22:25:00 Test Item Value Reference Range Interpretation Comments APTT Patient (test code = See_Comment [ Automated message] 3173-2) The system [employer] generated this result transmitted ref erence range: 26 - 36 Seconds. The re ference range was not u sed to interpret this result as normal/abnor mal. Lab Interpretation (test Normal code = 03171-4) [facility] CenterProthrombin Time (PT) / [id number] 22:25:00 Test Item Value Reference Range Interpretation Comments PROTIME PATIENT (test See_Comment [Auto mated message] code = 5964-2) The system [employer] generated this result transmitted ref erence range: 10.1 - 1 2.6 Seconds. The re ference range was not u sed to interpret this result as normal/abnor mal. INR (test code = 6301-6) Nor mal INR <1.1; Warfarin Therap eutic range 2.0 to 3. 0 or 2.5 to 3.5, dep ending upon the indica tions. Lab Interpretation (test Normal code = 72403-3) [facility] CenterCBC with [id number] 22:17:00 Test Item Value Reference Range Interpretation Comments WBC (test code = See_Comment [Automated 6690-2) message] The sy stem which generated this result transmitted reference range : 4.20 - 10.70 10*3/?L. The reference range was not used to interpret this result as normal/abnormal . RBC (test code = See_Comment L [Automated 789-8) message] The sy stem which generated this result transmitted reference range : 4.26 - 5.52 10*6/?L. The reference range was not used to interpret this result as normal/abnormal . HGB (test code = 12.1 g/dL 12.2-16.4 L 718-7) HCT (test code = 37.0 % 38.4-49.3 L 4544-3) MCV (test code = 89.8 fL 81.7-95.6 787-2) MCH (test code = 29.4 pg 26.1-32.7 785-6) MCHC (test code = 32.7 g/dL 31.2-35 786-4) RDW-SD (test code = 46.9 fL 38.5-51.6 30189-1) RDW-CV (test code = 14.3 % 12.1-15.4 788-0) PLT (test code = See_Comment [Automated 777-3) message] The sy stem which generated this result transmitted reference range : 150 - 328 10*3/ ?L. The reference r meredith was not used to interpret this result as normal/abnormal . MPV (test code = 10.7 fL 9.8-13 49353-5) NRBC/100 WBC (test See_Comment [Automat ed code = 7991842053) message] The system which generated this result transmitted reference range : 0.0 - 10.0 /100 WBCs. The refer ence range was not u sed to interpret th is result as normal/abnormal . NRBC x10^3 (test code <0.01 See_Comment [Auto mated = 2643389197) message] The s ystem which generated this result transmitted reference range : 10*3/?L. The reference range was not used to interpret this result as normal/abnormal . GRAN MAT (NEUT) % 51.7 % (test code = 770-8) IMM GRAN % (test code 0.40 % = 9339640758) LYMPH % (test code = 32.8 % 736-9) MONO % (test code = 12.4 % 5905-5) EOS % (test code = 2.1 % 713-8) BASO % (test code = 0.6 % 706-2) GRAN MAT x10^3(ANC) 2.76 10*3/uL 1.99-6.95 (test code = 0451167966) IMM GRAN x10^3 (test <0.03 0-0.06 code = 0558260285) LYMPH x10^3 (test code 1.75 10*3/uL 1.09-3.23 = 731-0) MONO x10^3 (test code 0.66 10*3/uL 0.36-1.02 = 742-7) EOS x10^3 (test code = 0.11 10*3/uL 0.06-0.53 711-2) BASO x10^3 (test code 0.03 10*3/uL 0.01-0.09 = 704-7) Lab Interpretation Abnormal (test code = 30126-3) [facility] with Axvjwdaffcze6478-19-62 10:26:00 Test Item Value Reference Range Interpretation Comments WBC (test code = See_Comment L [Automated 6690-2) message] The sy stem which generated this result transmitted reference range : 4.20 - 10.70 10*3/?L. The reference range was not used to interpret this result as normal/abnormal . RBC (test code = See_Comment L [Automated 789-8) message] The sy stem which generated this result transmitted reference range : 4.26 - 5.52 10*6/?L. The reference range was not used to interpret this result as normal/abnormal . HGB (test code = 11.8 g/dL 12.2-16.4 L 718-7) HCT (test code = 36.9 % 38.4-49.3 L 4544-3) MCV (test code = 90.2 fL 81.7-95.6 787-2) MCH (test code = 28.9 pg 26.1-32.7 785-6) MCHC (test code = 32.0 g/dL 31.2-35 786-4) RDW-SD (test code = 46.3 fL 38.5-51.6 41121-2) RDW-CV (test code = 14.2 % 12.1-15.4 788-0) PLT (test code = See_Comment L [Automated 777-3) message] The sy stem which generated this result transmitted reference range : 150 - 328 10*3/ ?L. The reference r meredith was not used to interpret this result as normal/abnormal . MPV (test code = 10.6 fL 9.8-13 36642-3) NRBC/100 WBC (test See_Comment [Automat ed code = 8963097418) message] The system which generated this result transmitted reference range : 0.0 - 10.0 /100 WBCs. The refer ence range was not u sed to interpret th is result as normal/abnormal . NRBC x10^3 (test code <0.01 See_Comment [Auto mated = 7050488112) message] The s ystem which generated this result transmitted reference range : 10*3/?L. The reference range was not used to interpret this result as normal/abnormal . GRAN MAT (NEUT) % 51.3 % (test code = 770-8) IMM GRAN % (test code 0.30 % = 6405984513) LYMPH % (test code = 32.2 % 736-9) MONO % (test code = 12.7 % 5905-5) EOS % (test code = 3.0 % 713-8) BASO % (test code = 0.5 % 706-2) GRAN MAT x10^3(ANC) 1.89 10*3/uL 1.99-6.95 L (test code = 0839116080) IMM GRAN x10^3 (test <0.03 0-0.06 code = 3372480990) LYMPH x10^3 (test code 1.19 10*3/uL 1.09-3.23 = 731-0) MONO x10^3 (test code 0.47 10*3/uL 0.36-1.02 = 742-7) EOS x10^3 (test code = 0.11 10*3/uL 0.06-0.53 711-2) BASO x10^3 (test code <0.03 0.01-0.09 = 704-7) Lab Interpretation Abnormal (test code = 24025-5) [facility] Kfjfe2031-72-59 10:17:00 Test Item Value Reference Range Interpretation Comments MAGNESIUM (test code = 3188734636) 2.0 mg/dL 1.7-2.4 Lab Interpretation (test code = Normal 66650-6) [facility] (NA, K, CL, CO2, GLUCOSE, BUN, CREATININE, CA)2020-03-26 10:17:00 Test Item Value Reference Range Interpretation Comments NA (test code = 136 mmol/L 135-145 9130572518) K (test code = 4.6 mmol/L 3.5-5 Slight 5395438540) hemolysis CL (test code = 109 mmol/L 98-108 H 4063242269) CO2 TOTAL (test code 26 mmol/L 23-31 = 1554413591) AGAP (test code = 2-16 L 9052996499) BUN (test code = 22 mg/dL 7-23 Slight 3106571679) hemolysis GLUCOSE (test code = 82 mg/dL 70-110 6945899114) CREATININE (test code 0.88 mg/dL 0.6-1.25 = 6141834891) CALCIUM (test code = 8.1 mg/dL 8.6-10.6 L 9752376910) eGFR Calculation mL/min/1.73m2 (Non-) (test code = 0134749600) eGFR Calculation mL/min/1.73m2 () (test code = 8995210319) GILBERTO (test code = GILBERTO) Association of Glomerular Filtration Rate (GFR) and Staging of Kidney Disease* + -----+ --------+ +| GFR (mL/min/1.73 m2) ?| With Kidney Damage ?| ?Without Kidney Damage+ +------- +---- --+| ?>90 ?| ?Stage one ?| ? Normal ?+ ------+ ---------+--------- +| ?60-89 ?| ?Stage two ?| ? Decreased GFR ? + -----+ --------+ +| ?30-59 ?| ?Stage three ?| ? Stage three ? + -----+ --------+ +| ?15-29 ?| ?Stage four ? | ? Stage four ?+ ------+ ---------+--------- +| ?<15 (or dialysis) ? ?| ?Stage five ? | ? Stage five ?+ ------+ ---------+--------- + *Each stage assumes the associated GFR level has been in effect for at least three months. ?Stages 1 to 5, with or without kidney disease, indicate chronic kidney disease. Notes: Determination of stages one and two (with eGFR >59mL/min/1.73 m2) requires estimation of kidney damage for at least three months as defined by structural or functional abnormalities of the kidney, manifested by either:Pathological abnormalities or Markers of kidney damage (including abnormalities in the composition of the blood or urine or abnormalities in imaging tests). Lab Interpretation Abnormal (test code = 42777-2) [facility] CenterLactic Acid Whole Ncgte3700-51-83 04:22:00 Test Item Value Reference Range Interpretation Comments LACTIC ACID (test code = 1.52 mmol/L 2263305624) [facility] CenterPhosphorus Rwula2729-20-75 03:37:00 Test Item Value Reference Range Interpretation Comments PHOSPHORUS (test code = 8503658174) 4.6 mg/dL 2.5-5 Lab Interpretation (test code = Normal 94436-5) [facility] CenterMAGNESIUM2020-08-03 03:37:00 Test Item Value Reference Range Interpretation Comments MAGNESIUM (test code = 1522379212) 2.3 mg/dL 1.7-2.4 Lab Interpretation (test code = Normal 18312-7) [facility] CenterCOVID-19 (ID NOW RAPID TESTING)2020-03-26 02:24:00 Test Item Value Reference Range Interpretation Comments SARS-CoV-2 Rapid ID NOW Not Detected Not Detected (test code = 69066-6) GILBERTO (test code = GILBERTO) ID NOW COVID-19 Assay is an isothermal nucleic acid amplification test intended for the qualitative detection of nucleic acid from SARS-CoV-2 viral RNA in nasopharyngeal (HUMAN GEOGRAPHY INSTRUCTOR) specimens. It is used under Emergency Use Authorization (EUA) by FDA. The limit of detection (LOD) of the assay is 125 Genome Equivalents/mL. A positive result is indicative of the presence of SARS-CoV-2 RNA. ?Clinical correlation with patient history and other diagnostic information is necessary to determine patient infection status. A negative (Not Detected) result does not preclude SARS-CoV-2 infection. In patients with clinical symptoms and other tests that are consistent with SARS-CoV-2 infection, negative results should be treated as presumptive negative and a new specimen should be tested with alternative PCR molecular test. Invalid: Please collect a new specimen for repeat patient testing if clinically indicated. Lab Interpretation Normal (test code = 19884-8) 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 Overall degree of dilatation is similar incomparison to prior exams. No focal bowel inflammation or wall thickening.. ORDERING PROVIDER: BERNARDO DONNELLY HISTORY: Abdominal distention EXAM: CT abdomen and pelvis TECHNIQUE: Multiple contiguous axial CT images were obtained from the lungbases through the lower pelvis following intravenous contrastadministration. Coronal and sagittal reformatted images were generated andreviewed. CT radiation dose parameters performed according to ALARA. COMPARISON: Abdomen radiograph from 03/02/[address] of the abdomen andpelvis from 02/26/2020 and 01/28/2020. FINDINGS: The imaged lung bases are essentially clear. There is no pleural orpericardial effusion. The liver, spleen, gallbladder, pancreas, and adrenal glands areunremarkable. The kidneys are symmetric insize and enhancement with nohydronephrosis. Abdominal aorta is normal caliber. No abdominal orretroperitoneal adenopathy. There is persistent marked dilatation of the transverse colon withoutevidence of focal obstructing mass, or stricture. There is a moderatevolume of stool within the sigmoid colon and rectum. There is no focalbowel wall thickening or inflammation. There is no evidence ofappendicitis. The urinary bladder is unremarkable. There is no pelvic free fluid. Noinguinal or pelvic adenopathy. No acute osseous abnormality is identified.Lytic lesion within the L4 vertebral body is unchanged from prior exams andis likely benign. [facility], Radiant Results Inft User - 03/25/2020 8:34 PM CDTORDERING PROVIDER: BERNARDO DONNELLYHISTORY: Abdominal distentionEXAM: CT abdomen and pelvisTECHNIQUE: Multiple contiguous axial CT images were obtained from the lungbases through the lower pelvis following intravenous contrastadministration. Coronal and sagittal reformatted images were generated andreviewed. CT radiation dose parameters performed according to ALARA.COMPARISON: Abdomen radiograph from 03/02/[address] of the abdomen andpelvis from 02/26/2020 and 01/28/2020.FINDINGS:The imaged lung bases are essentially clear. There is no pleural orpericardial effusion.The liver, spleen, gallbladder, pancreas, and adrenal glands areunremarkable. The kidneys are symmetric in size and enhancement with nohydronephrosis. Abdominal aorta is normal caliber. No abdominal orretroperitoneal adenopathy.There is persistent marked dilatation of the transverse colon withoutevidence of focal obstructing mass, or stricture. There is a moderatevolume of stool within the sigmoid colon and rectum. There is no focalbowel wall thickening or inflammation. There is no evidence ofappendicitis.The urinary bladder is unremarkable. Thereis no pelvic free fluid. Noinguinal or pelvic adenopathy. 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 Overall degree of dilatation is similar incompa rison to prior exams. No focal bowel inflammation or wall thickening.. [facility] Met[facility] (NA, K, CL, CO2, GLUCOSE, BUN, CREATININE, CA)2020-03-26 00:57:00 Test Item Value Reference Range Interpretation Comments NA (test code = 139 mmol/L 135-145 4436712753) K (test code = 4.4 mmol/L 3.5-5 1862948053) CL (test code = 105 mmol/L 98-108 9982553823) CO2 TOTAL (test code = 29 mmol/L 23-31 0811188942) AGAP (test code = 2-16 5385619460) BUN (test code = 28 mg/dL 7-23 H 9539717330) GLUCOSE (test code = 84 mg/dL 70-110 5873385526) CREATININE (test code = 1.19 mg/dL 0.6-1.25 4663699919) CALCIUM (test code = 8.9 mg/dL 8.6-10.6 1669802644) eGFR Calculation mL/min/1.73m2 (Non-) (test code = 4055860074) eGFR Calculation mL/min/1.73m2 () (test code = 1378507259) GILBERTO (test code = GILBERTO) Association of Glomerular Filtration Rate (GFR) and Staging of Kidney Disease* + --+ --+ ------+| GFR (mL/min/1.73 m2) ?| With Kidney Damage ?| ?Without Kidney Damage+ --------+ --------+ +| ?>90 ?| ?Stage one ?| ? Normal ?+ ---+ ---+ -------+| ?60-89 ?| ?Stage two ?| ? Decreased GFR ? + --+ --+ ------+| ?30-59 ?| ?Stage three ?| ? Stage three ? + --+ --+ ------+| ?15-29 ?| ?Stage four ? | ? Stage four ?+ ---+ ---+ -------+| ?<15 (or dialysis) ? ?| ?Stage five ? | ? Stage five ?+ ---+ ---+ -------+ *Each stage assumes the associated GFR level has been in effect for at least three months. ?Stages 1 to 5, with or without kidney disease, indicate chronic kidney disease. Notes: Determination of stages one and two (with eGFR >59mL/min/1.73 m2) requires estimation of kidney damage for at least three months as defined by structural or functional abnormalities of the kidney, manifested by either:Pathological abnormalities or Markers of kidney damage (including abnormalities in the composition of the blood or urine or abnormalities in imaging tests). Lab Interpretation Abnormal (test code = 97507-1) [facility] CenterHepatic Function Panel (ALB, T.PRO, BILI T, BU/BC, ALT, AST, ALK PHOS)2020-03-26 00:57:00 Test Item Value Reference Range Interpretation Comments TOTAL BILI (test code = 5599936889) 0.2 mg/dL 0.1-1.1 BILI UNCON (test code = 4334165239) 0.0 mg/dL 0.1-1.1 L BILI CONJ (test code = 9364990683) 0.0 mg/dL 0-0.3 T PROTEIN (test code = 4956117681) 6.2 g/dL 6.3-8.2 L ALBUMIN (test code = 5878745549) 4.1 g/dL 3.5-5 ALK PHOS (test code = 1998902952) 56 U/L 34-122 ALTv (test code = 1742-6) 24 U/L 5-50 AST(SGOT) (test code = 9748053743) 28 U/L 13-40 Lab Interpretation (test code = Abnormal 26328-2) [facility] with Ghnfneunvtwo0663-53-38 00:47:00 Test Item Value Reference Range Interpretation Comments WBC (test code = See_Comment [Automated 2690-2) message] The sy stem which generated this result transmitted reference range : 4.20 - 10.70 10*3/?L. The reference range was not used to interpret this result as normal/abnormal . RBC (test code = See_Comment L [Automated 799-8) message] The sy stem which generated this result transmitted reference range : 4.26 - 5.52 10*6/?L. The reference range was not used to interpret this result as normal/abnormal . HGB (test code = 11.5 g/dL 12.2-16.4 L 718-7) HCT (test code = 35.6 % 38.4-49.3 L 4544-3) MCV (test code = 90.4 fL 81.7-95.6 787-2) MCH (test code = 29.2 pg 26.1-32.7 785-6) MCHC (test code = 32.3 g/dL 31.2-35 786-4) RDW-SD (test code = 45.9 fL 38.5-51.6 84594-9) RDW-CV (test code = 14.0 % 12.1-15.4 788-0) PLT (test code = See_Comment [Automated 777-3) message] The sy stem which generated this result transmitted reference range : 150 - 328 10*3/ ?L. The reference r meredith was not used to interpret this result as normal/abnormal . MPV (test code = 10.9 fL 9.8-13 35758-8) NRBC/100 WBC (test See_Comment [Automat ed code = 5382456648) message] The system which generated this result transmitted reference range : 0.0 - 10.0 /100 WBCs. The refer ence range was not u sed to interpret th is result as normal/abnormal . NRBC x10^3 (test code <0.01 See_Comment [Auto mated = 0876258844) message] The s ystem which generated this result transmitted reference range : 10*3/?L. The reference range was not used to interpret this result as normal/abnormal . GRAN MAT (NEUT) % 49.8 % (test code = 770-8) IMM GRAN % (test code 0.20 % = 1621001892) LYMPH % (test code = 32.0 % 736-9) MONO % (test code = 14.3 % 5905-5) EOS % (test code = 3.0 % 713-8) BASO % (test code = 0.7 % 706-2) GRAN MAT x10^3(ANC) 2.29 10*3/uL 1.99-6.95 (test code = 4192541988) IMM GRAN x10^3 (test <0.03 0-0.06 code = 9308703090) LYMPH x10^3 (test code 1.47 10*3/uL 1.09-3.23 = 731-0) MONO x10^3 (test code 0.66 10*3/uL 0.36-1.02 = 742-7) EOS x10^3 (test code = 0.14 10*3/uL 0.06-0.53 711-2) BASO x10^3 (test code 0.03 10*3/uL 0.01-0.09 = 704-7) Lab Interpretation Abnormal (test code = 48671-2) [facility] CenterMagnesium Wjwlg8717-96-81 05:23:00 Test Item Value Reference Range Interpretation Comments MAGNESIUM (test code = 3019366142) 2.1 mg/dL 1.7-2.4 Lab Interpretation (test code = Normal 39788-1) [facility] CenterCOVID[facility]19 (ID NOW RAPID TESTING)2020-03-03 04:45:00 Test Item Value Reference Range Interpretation Comments SARS-CoV-2 Rapid ID NOW Not Detected Not Detected (test code = 96177-8) GILBERTO (test code = GILBERTO) ID NOW COVID-19 Assay is an isothermal nucleic acid amplification test intended for the qualitative detection of nucleic acid from SARS-CoV-2 viral RNA in nasopharyngeal (HUMAN GEOGRAPHY INSTRUCTOR) specimens. It is used under Emergency Use Authorization (EUA) by FDA. The limit of detection (LOD) of the assay is 125 Genome Equivalents/mL. A positive result is indicative of the presence of SARS-CoV-2 RNA. ?Clinical correlation with patient history and other diagnostic information is necessary to determine patient infection status. A negative (Not Detected) result does not preclude SARS-CoV-2 infection. In patients with clinical symptoms and other tests that are consistent with SARS-CoV-2 infection, negative results should be treated as presumptive negative and a new specimen should be tested with alternative PCR molecular test. Invalid: Please collect a new specimen for repeat patient testing if clinically indicated. Lab Interpretation Normal (test code = 33307-4) [facility] CenterProthrombin Time / [id number] 04:40:00 Test Item Value Reference Range Interpretation Comments PROTIME PATIENT (test See_Comment [Auto mated message] code = 5964-2) The system [employer] generated this result transmitted ref erence range: 10.1 - 1 2.6 Seconds. The re ference range was not u sed to interpret this result as normal/abnor mal. INR (test code = 6301-6) Nor mal INR <1.1; Warfarin Therap eutic range 2.0 to 3. 0 or 2.5 to 3.5, dep ending upon the indica tions. Lab Interpretation (test Normal code = 21355-8) [facility] CenteraPTT2020-07-11 04:40:00 Test Item Value Reference Range Interpretation Comments APTT Patient (test code = See_Comment [ Automated message] 3173-2) The system [employer] generated this result transmitted ref erence range: 26 - 36 Seconds. The re ference range was not u sed to interpret this result as normal/abnor mal. Lab Interpretation (test Normal code = 44546-4) [facility] CenterPhosphorus Ynibv6484-21-93 04:31:00 Test Item Value Reference Range Interpretation Comments PHOSPHORUS (test code = 5633548323) 4.0 mg/dL 2.5-5 Lab Interpretation (test code = Normal 89230-1) [facility] CenterXR ABDOMEN ACUTE JJKCDM6716-11-42 02:54:09 Impression: No radiographic evidence for acute cardiopulmonary disease. No radiographic evidence forpneumoperitoneum. Marked gaseous distention of predominantly large bowel loops in the abdomenand pelvis, similar to prior CT of 02/26/2020. On that CT, there was atransition in the distal descending colon, without mass lesion or definitesigmoid volvulus appreciated. RL: 460 AFC: [id number] Indication: Diffuse abdominal pain, obstructionComparison: CT the abdomen and pelvis dated 02/26/2020 Findings: AP view of the chest and upright and supine views of the abdomenand pelvis. The cardiothymic silhouette is within normal limits. The lungsare clear bilaterally. The visualized bony thorax is unremarkable. No free air is seen under either hemidiaphragm to suggest pneumoperitoneum.There is marked gaseous distention of predominantly large bowel loops inthe abdomen and pelvis, similar to prior CT of 02/26/2020 [facility], Radiant Results Inft User -03/02/2020 9:55 PM CDTIndication: Diffuse abdominal pain, obstructionComparison: CT the abdomen and pelvis dated 02/26/2020Findings: AP view of the chest and upright and supine views of the abdomenand pelvis. The cardiothymic silhouette is within normal limits. The lungsare clear bilaterally. The visualized bony thorax is unremarkable.No free air is seen under either hemidiaphragm to suggest pneumoperitoneum.There is marked gaseous distention of predominantly large bowel loops inthe abdomen and pelvis, similar to prior CT of 02/26/2020IMPRESSIONImpression:No radiographic evidence for acute cardiopulmonary disease.No radiographic evidence for pneumoperitoneum.Marked gaseous distention of predominantly large bowel loops in the abdomenand pelvis, similar to prior CT of 02/26/2020. On that CT, there was atransition in the distal descending colon, without mass lesion or definitesigmoid volvulus appreciated. RL: 460AFC: [id number] signed by Angeli Carrillo MD, PhD at 03/02/2020 9:54 PM [facility] CenterUrinalysis2020-07-11 01:50:00 Test Item Value Reference Range Interpretation Comments APPEARANCE (test code = Hazy Clear A 5443836480) COLOR (test code = Tahira Yellow A 1926902041) PH (test code = 4.8-8.0 9764713516) SP GRAVITY (test code = 1.003-1.030 0170868139) GLU U QUAL (test code = Normal Normal 6353035945) BLOOD (test code = Negative Negative 1774624163) KETONES (test code = 5 mg/dL Negative A 1858799225) PROTEIN (test code = Negative Negative 2887-8) UROBILIN (test code = 2.0 mg/dL Normal A 0999634544) BILIRUBIN (test code = Negative Negative 8840842200) NITRITE (test code = Negative Negative 0840807600) LEUK ROGER (test code = Negative Negative 7467698755) RBC/HPF (test code = See_Comment [Autom ated message] 5034180716) The system [employer] generated this result transmit dain reference range : 0 - 3 HPF. The refe rence range was not u sed to interpret th is result as normal/abnormal . WBC/HPF (test code = See_Comment [Autom ated message] 7052110819) The system [employer] generated this result transmit dain reference range : 0 - 5 HPF. The refe rence range was not u sed to interpret th is result as normal/abnormal . BACTERIA (test code = Negative Negative 0893204202) MUCOUS (test code = Slight Negative LPF A 1429278212) SQ EPITH (test code = <1 See_Comment [Auto mated message] 9853472465) The system [employer] generated this result transmit dain reference range : <=2 HPF. The refere nce range was not u sed to interpret th is result as normal/abnormal . CA OXALATE (test code = See_Comment H [Au tomated message] 4553103920) The system [employer] generated this result transmit dain reference range : <=1 HPF. The refere nce range was not u sed to interpret th is result as normal/abnormal . SPERM (test code = See_Comment [Automat ed message] 4252322642) The system [employer] generated this result transmit dain reference range : <=1 HPF. The refere nce range was not u sed to interpret th is result as normal/abnormal . Lab Interpretation (test Abnormal code = 13862-6) [facility] Metabolic Panel (NA, K, CL, CO2, GLUCOSE, BUN, CREATININE, CA)2020-03-03 01:44:00 Test Item Value Reference Range Interpretation Comments NA (test code = 140 mmol/L 135-145 3395120437) K (test code = 4.1 mmol/L 3.5-5 2479797472) CL (test code = 106 mmol/L 98-108 8739507683) CO2 TOTAL (test code = 25 mmol/L 23-31 7272778308) AGAP (test code = 2-16 6117018542) BUN (test code = 17 mg/dL 7-23 2275666922) GLUCOSE (test code = 91 mg/dL 70-110 2353468525) CREATININE (test code 1.13 mg/dL 0.6-1.25 = 9254961073) CALCIUM (test code = 9.0 mg/dL 8.6-10.6 5308479567) eGFR Calculation mL/min/1.73m2 (Non-) (test code = 2414813265) eGFR Calculation mL/min/1.73m2 () (test code = 5617256309) GILBERTO (test code = GILBERTO) Association of Glomerular Filtration Rate (GFR) and Staging of Kidney Disease* + -+ + ---+| GFR (mL/min/1.73 m2) ?| With Kidney Damage ?| ?Without Kidney Damage+ -------+ ------+ ---------+| ?>90 ?| ?Stage one ?| ? Normal ?+ --+ -+ ----+| ?60-89 ?| ?Stage two ?| ? Decreased GFR ? + -+ + ---+| ?30-59 ?| ?Stage three ?| ? Stage three ? + -+ + ---+| ?15-29 ?| ?Stage four ? | ? Stage four ?+ --+ -+ ----+| ?<15 (or dialysis) ? ?| ?Stage five ? | ? Stage five ?+ --+ -+ ----+ *Each stage assumes the associated GFR level has been in effect for at least three months. ?Stages 1 to 5, with or without kidney disease, indicate chronic kidney disease. Notes: Determination of stages one and two (with eGFR >59mL/min/1.73 m2) requires estimation of kidney damage for at least three months as defined by structural or functional abnormalities of the kidney, manifested by either:Pathological abnormalities or Markers of kidney damage (including abnormalities in the composition of the blood or urine or abnormalities in imaging tests). [facility] (ALB, T.PRO, BILI T, BU/BC, ALT, AST, ALK PHOS)2020-03-03 01:44:00 Test Item Value Reference Range Interpretation Comments TOTAL BILI (test code = 4854208838) 0.4 mg/dL 0.1-1.1 BILI UNCON (test code = 5116928408) 0.4 mg/dL 0.1-1.1 BILI CONJ (test code = 6808968426) 0.0 mg/dL 0-0.3 T PROTEIN (test code = 5942403282) 6.3 g/dL 6.3-8.2 ALBUMIN (test code = 0649544116) 4.2 g/dL 3.5-5 ALK PHOS (test code = 5936767565) 43 U/L 34-122 ALTv (test code = 1742-6) 20 U/L 5-50 AST(SGOT) (test code = 0640673604) 26 U/L 13-40 Lab Interpretation (test code = Normal 67038-6) [facility] CenterCBC WITH [id number] 01:37:00 Test Item Value Reference Range Interpretation Comments WBC (test code = See_Comment [Automated 9522-2) message] The sy stem which generated this result transmitted reference range : 4.20 - 10.70 10*3/?L. The reference range was not used to interpret this result as normal/abnormal . RBC (test code = See_Comment L [Automated 823-8) message] The sy stem which generated this result transmitted reference range : 4.26 - 5.52 10*6/?L. The reference range was not used to interpret this result as normal/abnormal . HGB (test code = 11.3 g/dL 12.2-16.4 L 718-7) HCT (test code = 34.5 % 38.4-49.3 L 4544-3) MCV (test code = 90.3 fL 81.7-95.6 787-2) MCH (test code = 29.6 pg 26.1-32.7 785-6) MCHC (test code = 32.8 g/dL 31.2-35 786-4) RDW-SD (test code = 45.0 fL 38.5-51.6 61695-6) RDW-CV (test code = 13.7 % 12.1-15.4 788-0) PLT (test code = See_Comment [Automated 777-3) message] The sy stem which generated this result transmitted reference range : 150 - 328 10*3/ ?L. The reference r meredith was not used to interpret this result as normal/abnormal . MPV (test code = 11.3 fL 9.8-13 02753-5) NRBC/100 WBC (test See_Comment [Automat ed code = 3844733604) message] The system which generated this result transmitted reference range : 0.0 - 10.0 /100 WBCs. The refer ence range was not u sed to interpret th is result as normal/abnormal . NRBC x10^3 (test code <0.01 See_Comment [Auto mated = 3238666327) message] The s ystem which generated this result transmitted reference range : 10*3/?L. The reference range was not used to interpret this result as normal/abnormal . GRAN MAT (NEUT) % 53.2 % (test code = 770-8) IMM GRAN % (test code 0.20 % = 7163019054) LYMPH % (test code = 34.5 % 736-9) MONO % (test code = 9.7 % 5905-5) EOS % (test code = 1.8 % 713-8) BASO % (test code = 0.6 % 706-2) GRAN MAT x10^3(ANC) 2.69 10*3/uL 1.99-6.95 (test code = 4476610799) IMM GRAN x10^3 (test <0.03 0-0.06 code = 7877418271) LYMPH x10^3 (test code 1.74 10*3/uL 1.09-3.23 = 731-0) MONO x10^3 (test code 0.49 10*3/uL 0.36-1.02 = 742-7) EOS x10^3 (test code = 0.09 10*3/uL 0.06-0.53 711-2) BASO x10^3 (test code 0.03 10*3/uL 0.01-0.09 = 704-7) Lab Interpretation Abnormal (test code = 65701-4) [facility] CenterLactic Acid Whole [id number] 01:28:00 Test Item Value Reference Range Interpretation Comments LACTIC ACID (test code = 1.62 mmol/L 8896003918) [facility] CenterDRUG PANEL 2 [id number] 22:13:00 Test Item Value Reference Range Interpretation Comments AMPHET (test code = Negative Negative 4142823828) LOS U (test code = Negative Negative 7714632783) BENZO U (test code = Negative Negative 9762239704) Cocaine Metabolite (test Negative Negative code = 6590833469) METHADONE (test code = Negative Negative 0925098118) OPIATES (test code = Negative Negative 3775471364) PCP (test code = Negative Negative 9141653365) THC (test code = Negative Negative 3087855163) GILBERTO (test code = GILBERTO) Urine Drug Cutoff Ranges Cocaine: ? 150 ng/mLBenzodiazepines: ? ? 200 ng/mLMethadone: ? 300 ng/mLAmphetamine: ? 1,000 ng/mLOpiates: ? 300 ng/mLCannabinoids: ?50 ng/mLPhencyclidine: ? ? ? 25 ng/mLBarbiturates: ?200 ng/mL The results are to be used only for medical (i.e., treatment) purposes. Unconfirmed screening results must not be used for non-medical purposes (e.g., employment testing, legal testing). Lab Interpretation (test Normal code = 83518-8) [facility] CenterTHYROID STIMULATING [id number] 19:02:00 Test Item Value Reference Range Interpretation Comments TSH (test code = See_Comment [Automated message] 4849296234) The system [employer] generated this result transmitted ref erence range: 0.45 - 4 .70 mIU/L. The refe rence range was not u sed to interpret this result as normal/abnor mal. Lab Interpretation (test Normal code = 28213-9) [facility] [id number] 18:49:00 Test Item Value Reference Range Interpretation Comments FREE T3 (test code = 1888647000) 2.56 pg/mL 2.77-5.27 L Lab Interpretation (test code = Abnormal 96419-0) [facility] [id number] 18:49:00 Test Item Value Reference Range Interpretation Comments FREE T4 (test code = See_Comment [Autom ated message] 0389085077) The system [employer] generated this result transmitted ref erence range: 0.78 - 2 .20 ng/dL:. The ref erence range was not u sed to interpret this result as normal/abnor mal. Lab Interpretation (test Normal code = 93504-6) [facility] ABDOMEN PELVIS W [id number] 20:56:47 Persistent marked severe dilatation of the transverse colon and small bowelwithout obstructing massor mural thickening. Additionally, there isgaseous distention and dilatation of the distal bowel. These findings aregrossly unchanged compared to prior CTs. No CT evidence evidence ofvolvulus. Preliminary Report Dictated by Resident: Merritt Fontenot ?MD. Jenniffer, have reviewed this study and agree withthe above report.CT ABDOMEN PELVIS W CONTRAST HISTORY: 50 years-old; Male; VolvulusCOMPARISON: 01/30/2020 TECHNIQUE AND FINDINGS: Contiguous axial imaging from the level of the lungbases through the pubic symphysis was performed after the uncomplicatedadministration of 120 cc of intravenous Omnipaque contrast. Coronal andsagittal reconstructions were obtained. ?Auto mA and/or iterativereconstruction were used to reduce radiation dose. FINDINGS: LOWER THORAX: The lung bases are clear.LIVER: No focal hepatic lesions. Normal contour. Hepatomegaly, uqjrnsuvg15.7 cm, in the craniocaudal dimension. Diffuse hypoattenuation of thehepatic parenchyma relative to the spleen. GALLBLADDER AND BILIARY TREE: No intra or extrahepatic biliary ductaldilation. SPLEEN: Splenomegaly, measuring 13.4 cm, in the craniocaudal dimension. PANCREAS: No ductal dilation or masses. ADRENAL GLANDS: No adrenal l esions. KIDNEYS: No hydronephrosis, stones, or masses. Homogeneous and symmetricalenhancement. GI TRACT: There is marked gaseous distention of the with the transversecolon proximally measuring 13.0 cm,grossly unchanged. Additionally, thereis distal small bowel gaseous distention. Stool is noted in the distalcolon. Anastomotic sutures in the splenic fracture are again noted.Surgical sutures are notedin the right lower quadrant. PERITONEUM AND RETROPERITONEUM: No free air or fluid collection. LYMPH NODES: No intra- abdominal or pelvic lymph node enlargement. PELVIS/BLADDER: Bladder is fully distended with no wall thickening.Heterogeneous appearance of the prostate which indents the bladder base issuggestive of central gland enlargement/BPH. VESSELS: Unremarkable. BONES AND SOFT TISSUES: No suspicious lytic or sclerotic bony lesions. [facility], Radiant Results Inft User - 02/26/2020 3:57 PM CDTCT ABDOMEN PELVIS W CONTRASTHISTORY: 50 years-old; Male; Volvulus COMPARISON: 01/30/2020TECHNIQUE AND FINDINGS:Contiguous axial imaging from the level of the lungbases through the pubic symphysis was performed after the uncomplicatedadministration of 120 cc of intravenous Omnipaque contrast. Coronal andsagittalreconstructions were obtained. Auto mA and/or iterativereconstruction were used to reduce radiation dose.FINDINGS:LOWER THORAX: The lung bases are clear. LIVER: No focal hepatic lesions. Normal contour. Hepatomegaly, qlirasvyf11.7 cm, in the craniocaudal dimension. Diffuse hypoattenuation of thehepatic parenchyma relative to the spleen.GALLBLADDER AND BILIARY TREE: No intra or extrahepatic biliary ductaldilation. SPLEEN: Splenomegaly, measuring 13.4 cm, in the craniocaudal dimension.PANCREAS: No ductal dilation or masses.ADRENAL GLANDS: No adrenal lesions.KIDNEYS: No hydronephrosis, stones, or masses. Homogeneous and symmetricalenhancement.GI TRACT: There is marked gaseous distention of the with the transversecolon proximally measuring 13.0 cm, grossly unchanged. Additionally, thereis distal small bowel gaseous distention. Stool is noted in the distalcolon. Anastomotic sutures in the splenic fracture are again noted.Surgical sutures are noted in the right lower quadrant. PERITONEUM AND RETROPERITONEUM: No free air or fluid collection.LYMPH NODES: No intra-abdominal or pelvic lymph node enlargement.PELVIS/BLADDER: Bladder is fully distended with no wall thickening.Heterogeneous appearance of the prostate which indents the bladder base issuggestive of central gland enlargement/BPH. VESSELS: Unr emarkable.BONES AND SOFT TISSUES: No suspicious lytic or sclerotic bony lesions.IMPRESSIONPersistentmarked severe dilatation of the transverse colon and small bowelwithout obstructing mass or mural thickening. Additionally, there isgaseous distention and dilatation of the distal bowel. These findings aregrossly unchanged compared to prior CTs. No CT evidence evidence ofvolvulus.Preliminary Report Dictated by Resident: Merritt Resendiz MD., have reviewed this study and agree withthe above report. [facility] CenterCOVID-19 (ID NOW RAPID TESTING)2020-02-26 07:03:00 Test Item Value Reference Range Interpretation Comments SARS-CoV-2 Rapid ID NOW Not Detected Not Detected (test code = 51458-6) GILBERTO (test code = GILBERTO) ID NOW COVID-19 Assay is an isothermal nucleic acid amplification test intended for the qualitative detection of nucleic acid from SARS-CoV-2 viral RNA in nasopharyngeal (HUMAN GEOGRAPHY INSTRUCTOR) specimens. It is used under Emergency Use Authorization (EUA) by FDA. The limit of detection (LOD) of the assay is 125 Genome Equivalents/mL. A positive result is indicative of the presence of SARS-CoV-2 RNA. ?Clinical correlation with patient history and other diagnostic information is necessary to determine patient infection status. A negative (Not Detected) result does not preclude SARS-CoV-2 infection. In patients with clinical symptoms and other tests that are consistent with SARS-CoV-2 infection, negative results should be treated as presumptive negative and a new specimen should be tested with alternative PCR molecular test. Invalid: Please collect a new specimen for repeat patient testing if clinically indicated. Lab Interpretation Normal (test code = 51466-6) [facility] CenterXR ABDOMEN ACUTE [id number] 05:00:33 Impression: No radiographic evidence for acute cardiopulmonary disease. Marked gaseous distention ofthe colon, with a relative paucity of gas inthe distal sigmoid colon and rectum. This may reflect pseudoobstruction,but mechanical distal colonic obstruction cannot be excluded. RL: 460 AF: [id number] Ordering physician: SABI Taborcation: Abdominal distention Comparison: None Findings: AP view of the chest and upright and supine views of the abdomenand pelvis. The cardiothymic silhouette is within normal limits. The lungsareclear bilaterally. The visualized bony thorax is unremarkable. No free air is seen under either hemidiaphragm to suggest pneumoperitoneum.There is marked gaseous distention of the colon. There is a relativepaucity of gas in the distal sigmoid colon and rectum. [facility], Radiant Results Inft User - 02/26/2020 12:02 AM CDTOrdering physician: SABI Taborcation: Abdominal distentionComparison: NoneFindi ngs: AP view of the chest and upright and supine views of the abdomenand pelvis. The cardiothymic silhouette is within normal limits. The lungsare clear bilaterally. The visualized bony thorax is unremarkable.No free air is seen under either hemidiaphragm to suggest pneumoperitoneum.There is marked gaseous distention of the colon. There is a relativepaucity of gas in the distal sigmoid colon and rectum.IMPRESSIONImpression:No radiographic evidence for acute cardiopulmonary disease.Marked gaseous distention of the colon, with a relative paucity of gas inthe distal sigmoid colon and rectum. This may reflect pseudoobstruction,but mechanical distal colonic obstruction cannot be excluded.RL: 460AF: [id number] signed by Angeli Carrillo MD, PhD at 02/26/2020 12:00 AMWilson [facility]. [facility] CenterBamarc[facility] Met[facility] Panel (NA, K, CL, CO2, GLUCOSE, BUN, CREATININE, CA)2020-02-26 04:03:00 Test Item Value Reference Range Interpretation Comments NA (test code = 142 mmol/L 135-145 5419453652) K (test code = 4.1 mmol/L 3.5-5 2544298580) CL (test code = 107 mmol/L 98-108 9842404561) CO2 TOTAL (test code = 29 mmol/L 23-31 4194873262) AGAP (test code = 2-16 8088800481) BUN (test code = 13 mg/dL 7-23 5924701069) GLUCOSE (test code = 82 mg/dL 70-110 0117849108) CREATININE (test code 1.14 mg/dL 0.6-1.25 = 4424209124) CALCIUM (test code = 9.5 mg/dL 8.6-10.6 9435412010) eGFR Calculation mL/min/1.73m2 (Non-) (test code = 0399839536) eGFR Calculation mL/min/1.73m2 () (test code = 4700015769) GILBERTO (test code = GILBERTO) Association of Glomerular Filtration Rate (GFR) and Staging of Kidney Disease* + -+ + ---+| GFR (mL/min/1.73 m2) ?| With Kidney Damage ?| ?Without Kidney Damage+ -------+ ------+ ---------+| ?>90 ?| ?Stage one ?| ? Normal ?+ --+ -+ ----+| ?60-89 ?| ?Stage two ?| ? Decreased GFR ? + -+ + ---+| ?30-59 ?| ?Stage three ?| ? Stage three ? + -+ + ---+| ?15-29 ?| ?Stage four ? | ? Stage four ?+ --+ -+ ----+| ?<15 (or dialysis) ? ?| ?Stage five ? | ? Stage five ?+ --+ -+ ----+ *Each stage assumes the associated GFR level has been in effect for at least three months. ?Stages 1 to 5, with or without kidney disease, indicate chronic kidney disease. Notes: Determination of stages one and two (with eGFR >59mL/min/1.73 m2) requires estimation of kidney damage for at least three months as defined by structural or functional abnormalities of the kidney, manifested by either:Pathological abnormalities or Markers of kidney damage (including abnormalities in the composition of the blood or urine or abnormalities in imaging tests). [facility] CenterHep[facility] Function Panel (ALB, T.PRO, BILI T, BU/BC, ALT, AST, ALK PHOS)2020-02-26 04:03:00 Test Item Value Reference Range Interpretation Comments TOTAL BILI (test code = 9708016634) 0.5 mg/dL 0.1-1.1 BILI UNCON (test code = 8926994022) 0.5 mg/dL 0.1-1.1 BILI CONJ (test code = 9619458791) 0.0 mg/dL 0-0.3 T PROTEIN (test code = 1540539427) 6.2 g/dL 6.3-8.2 L ALBUMIN (test code = 3084416381) 4.2 g/dL 3.5-5 ALK PHOS (test code = 4395120923) 40 U/L 34-122 ALTv (test code = 1742-6) 20 U/L 5-50 AST(SGOT) (test code = 7883490873) 26 U/L 13-40 Lab Interpretation (test code = Abnormal 42353-3) [facility] CenterLipase [id number] 04:03:00 Test Item Value Reference Range Interpretation Comments LIPASE (test code = 6270007176) 57 U/L 0-220 Lab Interpretation (test code = Normal 73720-0) [facility] CenterLactic Acid Whole [id number] 03:52:00 Test Item Value Reference Range Interpretation Comments LACTIC ACID (test code = 1.66 mmol/L 0.5-2.2 5633935468) [facility] CenterCB WITH [id number] 03:47:00 Test Item Value Reference Range Interpretation Comments WBC (test code = See_Comment [Automated 4990-2) message] The sy stem which generated this result transmitted reference range : 4.20 - 10.70 10*3/?L. The reference range was not used to interpret this result as normal/abnormal . RBC (test code = See_Comment L [Automated 501-8) message] The sy stem which generated this result transmitted reference range : 4.26 - 5.52 10*6/?L. The reference range was not used to interpret this result as normal/abnormal . HGB (test code = 12.0 g/dL 12.2-16.4 L 718-7) HCT (test code = 37.7 % 38.4-49.3 L 4544-3) MCV (test code = 90.2 fL 81.7-95.6 787-2) MCH (test code = 28.7 pg 26.1-32.7 785-6) MCHC (test code = 31.8 g/dL 31.2-35 786-4) RDW-SD (test code = 45.1 fL 38.5-51.6 74698-0) RDW-CV (test code = 13.7 % 12.1-15.4 788-0) PLT (test code = See_Comment [Automated 777-3) message] The sy stem which generated this result transmitted reference range : 150 - 328 10*3/ ?L. The reference r meredith was not used to interpret this result as normal/abnormal . MPV (test code = 10.7 fL 9.8-13 14544-0) NRBC/100 WBC (test See_Comment [Automat ed code = 9278365485) message] The system which generated this result transmitted reference range : 0.0 - 10.0 /100 WBCs. The refer ence range was not u sed to interpret th is result as normal/abnormal . NRBC x10^3 (test code <0.01 See_Comment [Auto mated = 0889138790) message] The s ystem which generated this result transmitted reference range : 10*3/?L. The reference range was not used to interpret this result as normal/abnormal . GRAN MAT (NEUT) % 63.1 % (test code = 770-8) IMM GRAN % (test code 0.40 % = 8353164879) LYMPH % (test code = 25.1 % 736-9) MONO % (test code = 9.9 % 5905-5) EOS % (test code = 1.1 % 713-8) BASO % (test code = 0.4 % 706-2) GRAN MAT x10^3(ANC) 3.52 10*3/uL 1.99-6.95 (test code = 9448125012) IMM GRAN x10^3 (test <0.03 0-0.06 code = 0761159063) LYMPH x10^3 (test code 1.40 10*3/uL 1.09-3.23 = 731-0) MONO x10^3 (test code 0.55 10*3/uL 0.36-1.02 = 742-7) EOS x10^3 (test code = 0.06 10*3/uL 0.06-0.53 711-2) BASO x10^3 (test code <0.03 0.01-0.09 = 704-7) Lab Interpretation Abnormal (test code = 68738-9) [facility]- XR ABDOMEN 1 [id number] 12:53:00 Name: [facility] : 1970 Age/S: 50 / M [address] Unit #: [id number] Loc: [place] [address] 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 Acct: [id number] Dis Date: Status: ADM IN PHONE #: [phone] Exam Date: 02/25/2020 1036 FAX #: Reason: abdominal distention EXAMS: CPT: [id number] XR ABDOMEN 1 V 91474 Fluoro Time: DAP (Gy m2): Air Kerma (mGy): Location: B2 EXAM: ABDOMEN AP History: Abdominal distention Comparison: CT abdomen and pelvis dated 02/23/2020. Multiple prior abdominal radiographs. Findings: The lung bases are grossly clear. Redemonstrated are markedly dilated, gas-filled small and large bowel loops, filling and distending the abdomen. There is gas in the rectum. The se appear progressed as prior exam with increased distention of small bowel loops in the left lower quadrant (not previously seen) The osseous structures appear normal. Impression: Redemonstrated are markedly dilated, gas-filled small and large bowel loops, filling and distending the abdomen. These appear progressed as prior exam with increased distention of small bowel loops in the left lower quadrant (not previously seen) [id number] Reported and signed by: Sol Paige MD CC: Andre Solano; Mark Perea MD PAGE 1 Signed Report Name: DORA JOSEPH Lehighton : 1970 Age/S: 50 / M [address] Unit #: [id number] Loc: [place] [address] 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 Acct: [id number] Dis Date:Status: ADM IN PHONE #: [phone] Exam Date: 02/25/2020 1036 FAX #: Reason: abdominal distentionEXAMS: CPT: [id number] XR ABDOMEN 1 V 34288 Fluoro Time: DAP (Gy m2): Air Kerma (mGy): <Continued> Technologist: Nichole Dill RT(R) Trnscb Date/Time: 02/25/2020 (3413) [email or web address] Orig Print D/T: S: 02/25/2020 (6118) PAGE 2 Signed Report COMPREHENSIVE METABOLIC [id number] 08:20:00 Test Item Value Reference Range Interpretation Comments SODIUM (test code = NA) 142 mmol/L 134-147 N POTASSIUM (test code = 3.8 mmol/L 3.4-5.0 N K) CHLORIDE (test code = 110 mmol/L 100-108 H CL) CARBON DIOXIDE (test 25 mmol/L 21-32 N code = CO2) ANION GAP (test code = 7.0 GAP calc 4.0-15.0 N GAP) GLUCOSE (test code = 77 MG/DL 70-110 N GLU) BLOOD UREA NITROGEN 11 MG/DL 7-18 N (test code = BUN) GLOMERULAR FILTRATION >=60 max estimate >60 RATE (test code = GFR) estGFR CREATININE (test code = 1.0 MG/DL 0.8-1.3 N CREAT) TOTAL PROTEIN (test code 5.4 G/DL 6.4-8.2 L = PROT) ALBUMIN (test code = 3.0 G/DL 3.4-5.0 L ALB) GLOBULIN (test code = 2.4 GM/dL GLOB) ALBUMIN/GLOBULIN RATIO 1.3 RATIO 1.2-2.2 N (test code = A/G) CALCIUM (test code = CA) 8.1 MG/DL 8.5-10.1 L BILIRUBIN TOTAL (test 0.80 MG/DL 0.2-1.2 N code = BILT) SGOT/AST (test code = 17 Unit/L 15-37 N AST) SGPT/ALT (test code = 21 Unit/L 12-78 N ALT) ALKALINE PHOSPHATASE 40 Unit/L 50-136 L TOTAL (test code = ALKP) [id number] 08:20:00 Test Item Value Reference Range Interpretation Comments MAGNESIUM (test code = MAG) 2.2 MG/DL 1.8-2.4 N THYROID STIMULATING [id number] 08:20:00 Test Item Value Reference Range Interpretation Comments THYROID STIMULATING HORMONE 5.430 mcIU/ML 0.340-4.820 H (test code = TSH) CBC W/AUTO [id number] 07:55:00 Test Item Value Reference Range Interpretation Comments WHITE BLOOD CELL (test code = 3.2 K/mm3 3.5-11.0 L WBC) RED BLOOD CELL (test code = 3.99 M/mm3 4.70-6.10 L RBC) HEMOGLOBIN (test code = HGB) 11.5 G/DL 12.3-15.9 L HEMATOCRIT (test code = HCT) 37.0 % 35.8-46.7 N MEAN CELL VOLUME (test code = 92.7 Fl 86.3-98.9 N MCV) MEAN CELL HGB (test code = MCH) 28.8 pg 28.9-34.4 L MEAN CELL HGB CONCETRATION 31.1 G/DL 32.1-34.5 L (test code = MCHC) RED CELL DISTRIBUTION WIDTH 13.5 SD 11.5-14.5 N (test code = RDW) PLATELET COUNT (test code = 140 K/mm3 150-450 L PLT) MEAN PLATELET VOLUME (test code 10.90 fL 7.0-9.6 H = MPV) NEUTROPHIL % (test code = NT%) 53.5 % 40-76 N LYMPHOCYTE % (test code = LY%) 34.7 % 20.5-51.1 N MONOCYTE % (test code = MO%) 8.4 % 1.7-9.3 N EOSINOPHIL % (test code = EO%) 2.2 % 0.0-6.0 N BASOPHIL % (test code = BA%) 0.9 % 0.0-2.0 N NUCLEATED RBC % (test code = 0.0 /100WBC% 0.0-1.0 N NRBC%) NEUTROPHIL # (test code = NT#) 1.7 K/mm3 1.8-7.6 L IMMATURE GRANULOCYTE # (test 0.01 x10 3/uL 0.00-0.03 N code = IG#) LYMPHOCYTE # (test code = LY#) 1.1 K/mm3 0.6-3.0 N MONOCYTE # (test code = MO#) 0.3 K/mm3 0.2-1.5 N EOSINOPHIL # (test code = EO#) 0.1 K/mm3 0.0-0.4 N BASOPHIL # (test code = BA#) 0.0 K/mm3 0.0-0.2 N NUCLEATED RBC # (test code = 0.0 K/mm3 0.00-0.01 N NRBC#) UA RFLX MICR CULT IF [id number] 12:29:00 Test Item Value Reference Range Interpretation Comments UA COLOR (test code = COLU) YELLOW discript YEL/STRAW UA APPEARANCE (test code = CLEAR discript CLEAR APPU) UA GLUCOSE DIPSTICK (test NEGATIVE mg/dL NEG code = DGLUU) UA BILIRUBIN DIPSTICK (test NEGATIVE mg/dL NEG code = BILU) UA KETONE DIPSTICK (test NEGATIVE mg/dL NEG code = KETU) UA SPECIFIC GRAVITY (test 1.025 SG 1.005-1.030 code = SGU) UA BLOOD DIPSTICK (test NEGATIVE mg/DL NEG code = LYNETTE) UA PH DIPSTICK (test code = 6.0 pH UNITS 5.0-7.0 OWEN) UA PROTEIN DIPSTICK (test NEGATIVE mg/dL NEG code = PROU) UA UROBILINIOGEN DIPSTICK 0.2 mg/dL <2.0 (test code = URO) UA NITRITE DIPSTICK (test NEGATIVE SCREEN NEG code = ERIN) UA LEUKOCYTE ESTERASE NEGATIVE Leuk/mcL NEGATIVE DIPSTICK (test code = LEUU) UA CULTURE NEEDED? (test Criteria Culture CHK code = UACULT) SOURCE OF URINE: CLEAN CATCHIndication for culture: Suprapubic PainUA RFLX MICR CULT IF [id number] 12:29:00 Test Item Value Reference Range Interpretation Comments UA COLOR (test code = COLU) YELLOW discript YEL/STRAW UA APPEARANCE (test code = CLEAR discript CLEAR APPU) UA GLUCOSE DIPSTICK (test NEGATIVE mg/dL NEG code = DGLUU) UA BILIRUBIN DIPSTICK (test NEGATIVE mg/dL NEG code = BILU) UA KETONE DIPSTICK (test NEGATIVE mg/dL NEG code = KETU) UA SPECIFIC GRAVITY (test 1.025 SG 1.005-1.030 code = SGU) UA BLOOD DIPSTICK (test NEGATIVE mg/DL NEG code = LYNETTE) UA PH DIPSTICK (test code = 6.0 pH UNITS 5.0-7.0 OWEN) UA PROTEIN DIPSTICK (test NEGATIVE mg/dL NEG code = PROU) UA UROBILINIOGEN DIPSTICK 0.2 mg/dL <2.0 (test code = URO) UA NITRITE DIPSTICK (test NEGATIVE SCREEN NEG code = ERIN) UA LEUKOCYTE ESTERASE NEGATIVE Leuk/mcL NEGATIVE DIPSTICK (test code = LEUU) SOURCE OF URINE: CLEAN CATCHIndication for culture: Suprapubic PainCOVID 19 Asymptomatic IH [id number] 22:09:00 Test Item Value Reference Range Interpretation Comments COVID 19 Asymptomatic NEGATIVE Negative Per ma nufacturer, IH AG (test code = negative results should COVNONPUIAG) be treated aspresumptive a nd, if inconsistent wi th clinical signs andsymptoms or necessary for p atient management, fifi uld betested with a n alternative mol ecular assay. Negative resultsdo not p reclude SARS-CoV-2 infe ction and should not be usedas the sole basis for patient man agement decisions. Nega tive results should be considered in t he context of apat ient's recent exposure s, history, presen ce of clinicalsigns a nd symptoms consis tent with COVID-19. - CT ABD PELVIS W/[id number] 21:10:00 Name: DORA JOSEPH [facility] : 1970 Age/S: 50 / M [address] Unit #: [id number] Loc: [place] [address] Phys: Evin Castellanos MD Acct: [id number] Dis Date: Status: REG ER PHONE #: [phone] Exam Date: 02/23/20202047 FAX #: Reason: diffuse abdomen pain and distention EXAMS: CPT: [id number] CT ABD PELVIS W/CONT 86956 EXAM: - CT ABD PELVIS W/CONT LOCATION: H61 CLINICAL HISTORY/INDICATION: diffuse abdomen pain and distention COMPARISON: Multiple prior KUBs are intact to 01/06/2020, most recent dated 02/19/2020. Abdominal CT/. TECHNIQUE: Axial CT images of the abdomen and pelvis were obtained from the diaphragm to the lesser trochanter with IV contrast administration. Coronal and sagittal reformations were reconstructed from the axial data set. Postcontrast imageswere acquired in the portal venous phase This examination was performed according to our departmental dose optimization program, which includes automated exposure control, adjustment of the mA and/or kV according to patient size, and/or use of iterative reconstruction technique. FINDINGS: LOWER THORAX: Clear. LIVER: No focal hepatic lesions or intrahepatic biliary dilatation. GALLBLADDER/BILIARY SYSTEM: Contracted gallbladder. PANCREAS: Unremarkable. SPLEEN: No splenomegaly or focal lesions. ADRENALS: No adrenal nodules. KIDNEYS/URETERS: No hydronephrosis, stones, or solid mass lesions. VESSELS: NoAAA. Patent portal vein. LYMPH NODES: No lymphadenopathy. PERITONEUM / RETROPERITONEUM: No free air or fluid. GI TRACT: No findings to suggest small bowel obstruction. There is similar chronic distention of the colon, which is greatest at the transverse segment. The transverse colon measures up to 11.8 cm. No obstructing mass, strictures or volvulus seen. Colonic dilatation is similar when compared to multiple prior KUBs as well as the 12/12/2019 PAGE 1 Signed Report (CONTINUED) Name: DORA JOSEPH [facility] : 1970 Age/S: 50 / M [address] [facility] Unit #: [id number] Loc: [place] [address] Phys: Evin Castellanos MD Acct: [id number] Dis Date: Status: REG ER PHONE #: [phone] Exam Date: 02/23/20202047 FAX #: Reason: diffuse abdomen pain and distention EXAMS: CPT: [id number] CTABD PELVIS W/CONT 39287 <Continued> CT. No bowel wall thickening or pneumatosis. There are postsurgical change of appendectomy. GENITOURINARY ORGANS: Prostatic calcifications are present. Prostate is normal in size. PELVIC FREE FLUID/FLUID COLLECTION: None. URINARY BLADDER: Unremarkable. EXTERNAL SOFT TISSUE: No abnormalities. BONES: Regional osseous structures are intact. Unchanged lucent lesion within the L4 vertebral body which may reflect a hemangioma. IMPRESSION: 1. Unchanged chronic colonic dilatation when compared to multiple prior KUBs and CT. No evidence of stricture, mass or volvulus. No evidence of small bowel obstruction. at 2109 Reported and signed by: Marybel José M.D. CC: Susana Meza NP; Carl Luevano MD Technologist:Rudy Zuniga, RT(R)(CT)(MRI) CTDI: DLP: Trnscb Date/Time: 02/23/2020 (2109) [email or web address] Orig Print D/T: S: 02/23/2020 (2112) PAGE 2 Signed Report- XR CHEST 1 [id number] 21:03:00 Name: DORA JOSEPH [facility] : 1970 Age/S: 50 / M [address] Unit #: [id number] Loc: [place] [address] Phys: Evin Castellanos MD Acct: [id number] Dis Date: Status: REG ER PHONE #: [phone] Exam Date: 02/23/20202055 FAX #: Reason: Code Sepsis EXAMS: CPT: [id number] XR CHEST 1 V 75549 Fluoro Time: DAP (Gy m2): Air Kerma (mGy): DICTATION LOCATION: 8 HISTORY: Male, 50 years of age with Code Sepsis, abdomen pain EXAM: CHEST X-RAY, ONE VIEW COMPARISON: 12/13/2019 COMMENT: Frontal view of the chest is provided. Left diaphragm is chronically elevated. There is chronic colonic air distention which has been present since baseline chest and abdomen x-rays performed 02/27/2013. No focal infiltrate, consolidation, mass lesion, or effusion is seen. Cardiac silhouette is withinnormal limits. No acute bony abnormalities. IMPRESSION: 1. No acute cardiopulmonary disease. 2. Chronic colonic air distention unchanged. at 210 Reported and signed by: Monica Quijano MD CC: Susana Meza NP; Carl Luevano MD PAGE1 Signed Report Name: DORA JOSEPH [facility] : 1970 Age/S: 50 / M [address] Unit #: [id number] Loc: [place] [address] Phys: Evin Castellanos MD Acct: [id number] Dis Date: Status: REG ER PHONE #: [phone] Exam Date: 02/23/20202055 FAX #: Reason: Code Sepsis EXAMS: CPT: [id number] XR CHEST 1 V 53401 Fluoro Time: DAP (Gy m2): Air Kerma (mGy): <Continued> Technologist: Rudy Zuniga RT(R)(CT)(MRI) Trnscb Date/Time: 02/23/2020 (2102) t.[email or web address].CLW Orig Print D/T: S: 02/23/2020 (2106) PAGE 2 Signed ReportBASIC METABOLIC PANEL 2020-02-23 20:02:00 Test Item Value Reference Range Interpretation Comments SODIUM (test code = NA) 144 mmol/L 134-147 N POTASSIUM (test code = K) 3.6 mmol/L 3.4-5.0 N CHLORIDE (test code = CL) 109 mmol/L 100-108 H CARBON DIOXIDE (test code = CO2) 27 mmol/L 21-32 N ANION GAP (test code = GAP) 8.0 GAP calc 4.0-15.0 N GLUCOSE (test code = GLU) 88 MG/DL 70-110 N BLOOD UREA NITROGEN (test code = 22 MG/DL 7-18 H BUN) GLOMERULAR FILTRATION RATE (test 57 estGFR >60 L code = GFR) CREATININE (test code = CREAT) 1.4 MG/DL 0.8-1.3 H CALCIUM (test code = CA) 8.5 MG/DL 8.5-10.1 N Completed by Nursing: NOHEPATIC FUNCTION [id number] 20:02:00 Test Item Value Reference Range Interpretation Comments TOTAL PROTEIN (test code = PROT) 6.5 G/DL 6.4-8.2 N ALBUMIN (test code = ALB) 3.7 G/DL 3.4-5.0 N BILIRUBIN TOTAL (test code = BILT) 0.40 MG/DL 0.2-1.2 N BILIRUBIN DIRECT (test code = 0.10 MG/DL 0.00-0.30 N BILD) BILIRUBIN INDIRECT (test code = 0.30 MG/DL 0.2-1.2 N BILIND) SGOT/AST (test code = AST) 20 Unit/L 15-37 N SGPT/ALT (test code = ALT) 29 Unit/L 12-78 N ALKALINE PHOSPHATASE TOTAL (test 61 Unit/L 50-136 N code = ALKP) Completed by Nursing: [id number] 20:02:00 Test Item Value Reference Range Interpretation Comments LIPASE (test code = LIP) 97 Unit/L 114-286 L Completed by Nursing: [id number] 20:02:00 Test Item Value Reference Range Interpretation Comments TROPONIN-I (test < 0.015 NG/ML 0.000-0.045 N Negative: </= 0.045 code = TROPI) Positive: >/= 0.046 Correlation wit h serial results, other cardiac markers, and cl inical findings is nec essary to determine the c linical significance of this result. Quantit ative results using d ifferent methodologies s hould not be compared to one another as nume rical results may brittani yby method. Completed by Nursing: NOLACTIC [id number] 19:59:00 Test Item Value Reference Range Interpretation Comments LACTIC ACID (test code = LACT) 1.2 mmol/L 0.4-2.0 N CBC W/AUTO [id number] 19:46:00 Test Item Value Reference Range Interpretation Comments WHITE BLOOD CELL (test code = 4.7 K/mm3 3.5-11.0 N WBC) RED BLOOD CELL (test code = 3.90 M/mm3 4.70-6.10 L RBC) HEMOGLOBIN (test code = HGB) 11.3 G/DL 12.3-15.9 L HEMATOCRIT (test code = HCT) 36.4 % 35.8-46.7 N MEAN CELL VOLUME (test code = 93.3 Fl 86.3-98.9 N MCV) MEAN CELL HGB (test code = MCH) 29.0 pg 28.9-34.4 N MEAN CELL HGB CONCETRATION 31.0 G/DL 32.1-34.5 L (test code = MCHC) RED CELL DISTRIBUTION WIDTH 13.8 SD 11.5-14.5 N (test code = RDW) PLATELET COUNT (test code = 172 K/mm3 150-450 N PLT) MEAN PLATELET VOLUME (test code 10.90 fL 7.0-9.6 H = MPV) NEUTROPHIL % (test code = NT%) 50.0 % 40-76 N LYMPHOCYTE % (test code = LY%) 36.6 % 20.5-51.1 N MONOCYTE % (test code = MO%) 10.0 % 1.7-9.3 H EOSINOPHIL % (test code = EO%) 2.6 % 0.0-6.0 N BASOPHIL % (test code = BA%) 0.6 % 0.0-2.0 N NUCLEATED RBC % (test code = 0.0 /100WBC% 0.0-1.0 N NRBC%) NEUTROPHIL # (test code = NT#) 2.4 K/mm3 1.8-7.6 N IMMATURE GRANULOCYTE # (test 0.01 x10 3/uL 0.00-0.03 N code = IG#) LYMPHOCYTE # (test code = LY#) 1.7 K/mm3 0.6-3.0 N MONOCYTE # (test code = MO#) 0.5 K/mm3 0.2-1.5 N EOSINOPHIL # (test code = EO#) 0.1 K/mm3 0.0-0.4 N BASOPHIL # (test code = BA#) 0.0 K/mm3 0.0-0.2 N NUCLEATED RBC # (test code = 0.0 K/mm3 0.00-0.01 N NRBC#) MANUAL DIFF REQUIRED (test code NO DIFF/SCN CRITERIA = MDIFF) - XR ABDOMEN 2 [id number] 06:22:00 Name: DORA JOSEPH [facility] : 1970 Age/S: 50 / M [address] Unit #: [id number] Loc: [place] [address] Phys: Leonidas Robertson MD Acct: [id number] Dis Date: Status: ADM INPHONE #: [phone] Exam Date: 02/19/2020 0440 FAX #: Reason: megacolon EXAMS: CPT: [id number] XR ABDOMEN 2 V 34954 Fluoro Time: DAP (Gy m2): Air Kerma (mGy): EXAM: Abdomen 2 views Location: H24 HISTORY: Megacolon. COMPARISON: 01/10/2020 FINDINGS: AP upright and supine views of the abdomen were obtained. There is marked gaseous distention of the colon followed to level the rectum. Multiple gas dilated loops of small bowel loops are seen centrally. There is no free intraperitoneal air. There is no definite organomegaly. No further radiopacities are seen within the abdomen. Since prior imaging thereis been interval removal of drainage catheter. IMPRESSION: Marked dilation of colonic loops as well as small bowel loops. No free intraperitoneal air. at 0622 Reported and signed by: David Rodríguez M.D. CC: Leonidas Robertson MD; Coco Nova MD PAGE 1 Signed Report Name: DORA JOSEPH [facility] : 1970 Age/S: 50 / M [address] Unit #: [id number] Loc: [place] [address] Phys: Leonidas Robertson MD Acct: [id number] Dis Date: Status: ADM IN PHONE #: [phone] Exam Date: 02/19/2020 0440 FAX #: Reason: megacolon EXAMS:CPT: [id number] XR ABDOMEN 2 V 58650 Fluoro Time: DAP (Gy m2): Air Kerma (mGy): <Continued> Technologist: Carrie Barnett, RT(R)(CT) Trnscb Date/Time: 02/19/2020 (621) [id number] Orig Print D/T: S: 02/19/2020 (06) PAGE 2 Signed ReportBASIC METABOLIC [id number] 05:52:00 Test Item Value Reference Range Interpretation Comments SODIUM (test code = NA) 142 mmol/L 134-147 N POTASSIUM (test code = 3.9 mmol/L 3.4-5.0 N K) CHLORIDE (test code = 110 mmol/L 100-108 H CL) CARBON DIOXIDE (test 27 mmol/L 21-32 N code = CO2) ANION GAP (test code = 5.0 GAP calc 4.0-15.0 N GAP) GLUCOSE (test code = 84 MG/DL 70-110 N GLU) BLOOD UREA NITROGEN 9 MG/DL 7-18 N (test code = BUN) GLOMERULAR FILTRATION >=60 max estimate >60 RATE (test code = GFR) estGFR CREATININE (test code = 1.1 MG/DL 0.8-1.3 N CREAT) CALCIUM (test code = CA) 8.5 MG/DL 8.5-10.1 N CBC W/AUTO [id number] 05:40:00 Test Item Value Reference Range Interpretation Comments WHITE BLOOD CELL (test code = 3.6 K/mm3 3.5-11.0 N WBC) RED BLOOD CELL (test code = 3.92 M/mm3 4.70-6.10 L RBC) HEMOGLOBIN (test code = HGB) 11.6 G/DL 12.3-15.9 L HEMATOCRIT (test code = HCT) 36.7 % 35.8-46.7 N MEAN CELL VOLUME (test code = 93.6 Fl 86.3-98.9 N MCV) MEAN CELL HGB (test code = MCH) 29.6 pg 28.9-34.4 N MEAN CELL HGB CONCETRATION 31.6 G/DL 32.1-34.5 L (test code = MCHC) RED CELL DISTRIBUTION WIDTH 13.5 SD 11.5-14.5 N (test code = RDW) PLATELET COUNT (test code = 179 K/mm3 150-450 N PLT) MEAN PLATELET VOLUME (test code 10.50 fL 7.0-9.6 H = MPV) NEUTROPHIL % (test code = NT%) 46.9 % 40-76 LYMPHOCYTE % (test code = LY%) 39.9 % 20.5-51.1 N MONOCYTE % (test code = MO%) 9.6 % 1.7-9.3 H EOSINOPHIL % (test code = EO%) 2.5 % 0.0-6.0 N BASOPHIL % (test code = BA%) 0.8 % 0.0-2.0 N NUCLEATED RBC % (test code = 0.0 /100WBC% 0.0-1.0 N NRBC%) NEUTROPHIL # (test code = NT#) 1.7 K/mm3 1.8-7.6 L IMMATURE GRANULOCYTE # (test 0.01 x10 3/uL 0.00-0.03 N code = IG#) LYMPHOCYTE # (test code = LY#) 1.4 K/mm3 0.6-3.0 N MONOCYTE # (test code = MO#) 0.3 K/mm3 0.2-1.5 N EOSINOPHIL # (test code = EO#) 0.1 K/mm3 0.0-0.4 N BASOPHIL # (test code = BA#) 0.0 K/mm3 0.0-0.2 N NUCLEATED RBC # (test code = 0.0 K/mm3 0.00-0.01 N NRBC#) MANUAL DIFF REQUIRED (test code NO DIFF/SCN CRITERIA = MDIFF) BASIC METABOLIC [id number] 06:52:00 Test Item Value Reference Range Interpretation Comments SODIUM (test code = NA) 142 mmol/L 134-147 N POTASSIUM (test code = 3.8 mmol/L 3.4-5.0 N K) CHLORIDE (test code = 109 mmol/L 100-108 H CL) CARBON DIOXIDE (test 28 mmol/L 21-32 N code = CO2) ANION GAP (test code = 5.0 GAP calc 4.0-15.0 N GAP) GLUCOSE (test code = 82 MG/DL 70-110 N GLU) BLOOD UREA NITROGEN 14 MG/DL 7-18 N (test code = BUN) GLOMERULAR FILTRATION >=60 max estimate >60 RATE (test code = GFR) estGFR CREATININE (test code = 0.9 MG/DL 0.8-1.3 N CREAT) CALCIUM (test code = CA) 8.3 MG/DL 8.5-10.1 L CBC W/AUTO [id number] 06:39:00 Test Item Value Reference Range Interpretation Comments WHITE BLOOD CELL (test code = 3.8 K/mm3 3.5-11.0 N WBC) RED BLOOD CELL (test code = 3.95 M/mm3 4.70-6.10 L RBC) HEMOGLOBIN (test code = HGB) 11.5 G/DL 12.3-15.9 L HEMATOCRIT (test code = HCT) 36.1 % 35.8-46.7 N MEAN CELL VOLUME (test code = 91.4 Fl 86.3-98.9 N MCV) MEAN CELL HGB (test code = MCH) 29.1 pg 28.9-34.4 N MEAN CELL HGB CONCETRATION 31.9 G/DL 32.1-34.5 L (test code = MCHC) RED CELL DISTRIBUTION WIDTH 13.7 SD 11.5-14.5 N (test code = RDW) PLATELET COUNT (test code = 147 K/mm3 150-450 L PLT) MEAN PLATELET VOLUME (test code 11.10 fL 7.0-9.6 H = MPV) NEUTROPHIL % (test code = NT%) 61.5 % 40-76 N LYMPHOCYTE % (test code = LY%) 27.2 % 20.5-51.1 N MONOCYTE % (test code = MO%) 8.4 % 1.7-9.3 N EOSINOPHIL % (test code = EO%) 1.8 % 0.0-6.0 N BASOPHIL % (test code = BA%) 0.8 % 0.0-2.0 N NUCLEATED RBC % (test code = 0.0 /100WBC% 0.0-1.0 N NRBC%) NEUTROPHIL # (test code = NT#) 2.4 K/mm3 1.8-7.6 N IMMATURE GRANULOCYTE # (test 0.01 x10 3/uL 0.00-0.03 N code = IG#) LYMPHOCYTE # (test code = LY#) 1.0 K/mm3 0.6-3.0 N MONOCYTE # (test code = MO#) 0.3 K/mm3 0.2-1.5 N EOSINOPHIL # (test code = EO#) 0.1 K/mm3 0.0-0.4 N BASOPHIL # (test code = BA#) 0.0 K/mm3 0.0-0.2 N NUCLEATED RBC # (test code = 0.0 K/mm3 0.00-0.01 N NRBC#) MANUAL DIFF REQUIRED (test code NO DIFF/SCN CRITERIA = MDIFF) Coronavirus 2019 nCoV [id number] 05:35:00 Test Item Value Reference Range Interpretation Comments Coronavirus 2019 nCoV Negative NEGATIVE Per sindi nufacturer, Bedside (test code = negativ e results should COVNONPUIBED) be treated aspresumptive a nd, if inconsistent wi th clinical signs andsymptoms or necessary for p atient management, fifi uld betested with a n alternative mol ecular assay. Negative resultsdo not p reclude SARS-CoV-2 infe ction and should not be usedas the sole basis for patient man agement decisions. Nega tive results should be considered in t he context of apat ient's recent exposure s, history, presen ce of clinicalsigns a nd symptoms consis tent with COVID-19. BASIC METABOLIC PANEL (NA, K, CL, CO2, GLUCOSE, BUN, CREATININE, CA)2020-02-03 16:58:00 Test Item Value Reference Range Interpretation Comments NA (test code = 139 mmol/L 135-145 4568368340) K (test code = 4.3 mmol/L 3.5-5 6847188890) CL (test code = 105 mmol/L 98-108 4468765792) CO2 TOTAL (test code = 30 mmol/L 23-31 3479407819) AGAP (test code = 2-16 9881736235) BUN (test code = 6 mg/dL 7-23 L 6540892097) GLUCOSE (test code = 94 mg/dL 70-110 1761394033) CREATININE (test code = 1.07 mg/dL 0.6-1.25 5922154988) CALCIUM (test code = 9.3 mg/dL 8.6-10.6 5119986791) eGFR Calculation mL/min/1.73m2 (Non-) (test code = 9703441982) eGFR Calculation mL/min/1.73m2 () (test code = 7491074189) GILBERTO (test code = GILBERTO) Association of Glomerular Filtration Rate (GFR) and Staging of Kidney Disease* + --+ --+ ------+| GFR (mL/min/1.73 m2) ?| With Kidney Damage ?| ?Without Kidney Damage+ --------+ --------+ +| ?>90 ?| ?Stage one ?| ? Normal ?+ ---+ ---+ -------+| ?60-89 ?| ?Stage two ?| ? Decreased GFR ? + --+ --+ ------+| ?30-59 ?| ?Stage three ?| ? Stage three ? + --+ --+ ------+| ?15-29 ?| ?Stage four ? | ? Stage four ?+ ---+ ---+ -------+| ?<15 (or dialysis) ? ?| ?Stage five ? | ? Stage five ?+ ---+ ---+ -------+ *Each stage assumes the associated GFR level has been in effect for at least three months. ?Stages 1 to 5, with or without kidney disease, indicate chronic kidney disease. Notes: Determination of stages one and two (with eGFR >59mL/min/1.73 m2) requires estimation of kidney damage for at least three months as defined by structural or functional abnormalities of the kidney, manifested by either:Pathological abnormalities or Markers of kidney damage (including abnormalities in the composition of the blood or urine or abnormalities in imaging tests). Lab Interpretation Abnormal (test code = 43136-0) [facility]2020[facility] 16:58:00 Test Item Value Reference Range Interpretation Comments MAGNESIUM (test code = 5144304718) 2.0 mg/dL 1.7-2.4 Lab Interpretation (test code = Normal 01003-4) [facility] CenterXR [id number] 17:02:411. Interval worsening of air distended loops of bowel particularly thecolon with cecum measuring up to 15 cm. EXAM: KUB HISTORY: Abdomen pain TECHNIQUE:A KUB radiograph is obtained. COMPARISON: 01/26/2020 FINDINGS:A small amount of stool is seen in the rectosigmoid colon. Airdistended colon is identified with significant dilation of the cecum andtransverse colon measuring up to 15 cm in size. Mild distention of thesmall bowel loops is noted as well. [facility], Radiant Results Inft User - 01/31/2020 12:03 PM CDTEXAM: KUBHISTORY: Abdomen painTECHNIQUE:A KUB radiograph is obtained.COMPARISON: 01/26/2020FINDINGS:A small amount of stool is seen in the rectosigmoid colon. Airdistended colon is identified with significant dilation of the cecum andtransverse colon measuring up to 15 cm in size. Mild distention ofthesmall bowel loops is noted as well.IMPRESSION1. Interval worsening of air distended loops of bowel particularly thecolon with cecum measuring up to 15 cm. [facility] CenterCBC WITH [id number] 07:20:00 Test Item Value Reference Range Interpretation Comments WBC (test code = See_Comment L [Automated 6690-2) message] The sy stem which generated this result transmitted reference range : 4.20 - 10.70 10*3/?L. The reference range was not used to interpret this result as normal/abnormal . RBC (test code = See_Comment [Automated 789-8) message] The sy stem which generated this result transmitted reference range : 4.26 - 5.52 10*6/?L. The reference range was not used to interpret this result as normal/abnormal . HGB (test code = 12.6 g/dL 12.2-16.4 718-7) HCT (test code = 38.8 % 38.4-49.3 4544-3) MCV (test code = 91.1 fL 81.7-95.6 787-2) MCH (test code = 29.6 pg 26.1-32.7 785-6) MCHC (test code = 32.5 g/dL 31.2-35 786-4) RDW-SD (test code = 46.5 fL 38.5-51.6 26514-6) RDW-CV (test code = 13.9 % 12.1-15.4 788-0) PLT (test code = See_Comment L [Automated 777-3) message] The sy stem which generated this result transmitted reference range : 150 - 328 10*3/ ?L. The reference r meredith was not used to interpret this result as normal/abnormal . MPV (test code = 10.7 fL 9.8-13 94049-1) NRBC/100 WBC (test See_Comment [Automat ed code = 5133215127) message] The system which generated this result transmitted reference range : 0.0 - 10.0 /100 WBCs. The refer ence range was not u sed to interpret th is result as normal/abnormal . NRBC x10^3 (test code <0.01 See_Comment [Auto mated = 6140290209) message] The s ystem which generated this result transmitted reference range : 10*3/?L. The reference range was not used to interpret this result as normal/abnormal . GRAN MAT (NEUT) % 48.6 % (test code = 770-8) IMM GRAN % (test code 0.20 % = 0364452373) LYMPH % (test code = 39.6 % 736-9) MONO % (test code = 8.4 % 5905-5) EOS % (test code = 2.7 % 713-8) BASO % (test code = 0.5 % 706-2) GRAN MAT x10^3(ANC) 1.96 10*3/uL 1.99-6.95 L (test code = 8074906612) IMM GRAN x10^3 (test <0.03 0-0.06 code = 4112602060) LYMPH x10^3 (test code 1.60 10*3/uL 1.09-3.23 = 731-0) MONO x10^3 (test code 0.34 10*3/uL 0.36-1.02 L = 742-7) EOS x10^3 (test code = 0.11 10*3/uL 0.06-0.53 711-2) BASO x10^3 (test code <0.03 0.01-0.09 = 704-7) Lab Interpretation Abnormal (test code = 84736-1) [facility] METABOLIC PANEL (NA, K, CL, CO2, GLUCOSE, BUN, CREATININE, CA)2020-01-31 06:32:00 Test Item Value Reference Range Interpretation Comments NA (test code = 138 mmol/L 135-145 3333715298) K (test code = 4.2 mmol/L 3.5-5 Slight 2682372632) hemolysis CL (test code = 108 mmol/L 98-108 7933287723) CO2 TOTAL (test code 22 mmol/L 23-31 L = 2547709908) AGAP (test code = 2-16 3404207398) BUN (test code = 7 mg/dL 7-23 Slight 3677401217) hemolysis GLUCOSE (test code = 92 mg/dL 70-110 3469692324) CREATININE (test code 1.02 mg/dL 0.6-1.25 = 4338297061) CALCIUM (test code = 8.9 mg/dL 8.6-10.6 6928067007) eGFR Calculation mL/min/1.73m2 (Non-) (test code = 0121675017) eGFR Calculation mL/min/1.73m2 () (test code = 3634027455) GILBERTO (test code = GILBERTO) Association of Glomerular Filtration Rate (GFR) and Staging of Kidney Disease* + -----+ --------+ +| GFR (mL/min/1.73 m2) ?| With Kidney Damage ?| ?Without Kidney Damage+ +------- +---- --+| ?>90 ?| ?Stage one ?| ? Normal ?+ ------+ ---------+--------- +| ?60-89 ?| ?Stage two ?| ? Decreased GFR ? + -----+ --------+ +| ?30-59 ?| ?Stage three ?| ? Stage three ? + -----+ --------+ +| ?15-29 ?| ?Stage four ? | ? Stage four ?+ ------+ ---------+--------- +| ?<15 (or dialysis) ? ?| ?Stage five ? | ? Stage five ?+ ------+ ---------+--------- + *Each stage assumes the associated GFR level has been in effect for at least three months. ?Stages 1 to 5, with or without kidney disease, indicate chronic kidney disease. Notes: Determination of stages one and two (with eGFR >59mL/min/1.73 m2) requires estimation of kidney damage for at least three months as defined by structural or functional abnormalities of the kidney, manifested by either:Pathological abnormalities or Markers of kidney damage (including abnormalities in the composition of the blood or urine or abnormalities in imaging tests). Lab Interpretation Abnormal (test code = 66231-1) [facility] WITH [id number] 11:00:00 Test Item Value Reference Range Interpretation Comments WBC (test code = See_Comment L [Automated 9290-2) message] The sy stem which generated this result transmitted reference range : 4.20 - 10.70 10*3/?L. The reference range was not used to interpret this result as normal/abnormal . RBC (test code = See_Comment L [Automated 609-8) message] The sy stem which generated this result transmitted reference range : 4.26 - 5.52 10*6/?L. The reference range was not used to interpret this result as normal/abnormal . HGB (test code = 11.4 g/dL 12.2-16.4 L 718-7) HCT (test code = 35.6 % 38.4-49.3 L 4544-3) MCV (test code = 93.2 fL 81.7-95.6 787-2) MCH (test code = 29.8 pg 26.1-32.7 785-6) MCHC (test code = 32.0 g/dL 31.2-35 786-4) RDW-SD (test code = 48.7 fL 38.5-51.6 37937-9) RDW-CV (test code = 14.4 % 12.1-15.4 788-0) PLT (test code = See_Comment L [Automated 777-3) message] The sy stem which generated this result transmitted reference range : 150 - 328 10*3/ ?L. The reference r meredith was not used to interpret this result as normal/abnormal . MPV (test code = 10.7 fL 9.8-13 38518-5) IPF % (test code = 5.1 % 1.2-10.7 Platelet count 8143400917) measured by fluorescence method. NRBC/100 WBC (test See_Comment [Automat ed code = 3439271041) message] The system which generated this result transmitted reference range : 0.0 - 10.0 /100 WBCs. The refer ence range was not u sed to interpret th is result as normal/abnormal . NRBC x10^3 (test code <0.01 See_Comment [Auto mated = 6423502942) message] The s ystem which generated this result transmitted reference range : 10*3/?L. The reference range was not used to interpret this result as normal/abnormal . SEG % (test code = 53 % 33-76 41103-4) BAND % (test code = 1 % 0-1 21688-9) LYMPH % (test code = 39 % 14-54 19085-0) MONO % (test code = 4 % 0-4 59685-6) EOS % (test code = 3 % 0-3 57176-3) ANC (test code = 1.93 10*3/uL 1.99-6.95 L 0108565979) Lab Interpretation Abnormal (test code = 71866-2) [facility] Metabolic Panel (NA, K, CL, CO2, GLUCOSE, BUN, CREATININE, CA)2020-01-29 10:23:00 Test Item Value Reference Range Interpretation Comments NA (test code = 138 mmol/L 135-145 9408262254) K (test code = 4.0 mmol/L 3.5-5 3274140952) CL (test code = 109 mmol/L 98-108 H 3341580410) CO2 TOTAL (test code = 27 mmol/L 23-31 6033455536) AGAP (test code = 2-16 1803660639) BUN (test code = 16 mg/dL 7-23 4458639986) GLUCOSE (test code = 81 mg/dL 70-110 0026147552) CREATININE (test code = 1.14 mg/dL 0.6-1.25 5069290800) CALCIUM (test code = 8.6 mg/dL 8.6-10.6 4786351404) eGFR Calculation mL/min/1.73m2 (Non-) (test code = 6323916510) eGFR Calculation mL/min/1.73m2 () (test code = 4380637702) GILBERTO (test code = GILBERTO) Association of Glomerular Filtration Rate (GFR) and Staging of Kidney Disease* + --+ --+ ------+| GFR (mL/min/1.73 m2) ?| With Kidney Damage ?| ?Without Kidney Damage+ --------+ --------+ +| ?>90 ?| ?Stage one ?| ? Normal ?+ ---+ ---+ -------+| ?60-89 ?| ?Stage two ?| ? Decreased GFR ? + --+ --+ ------+| ?30-59 ?| ?Stage three ?| ? Stage three ? + --+ --+ ------+| ?15-29 ?| ?Stage four ? | ? Stage four ?+ ---+ ---+ -------+| ?<15 (or dialysis) ? ?| ?Stage five ? | ? Stage five ?+ ---+ ---+ -------+ *Each stage assumes the associated GFR level has been in effect for at least three months. ?Stages 1 to 5, with or without kidney disease, indicate chronic kidney disease. Notes: Determination of stages one and two (with eGFR >59mL/min/1.73 m2) requires estimation of kidney damage for at least three months as defined by structural or functional abnormalities of the kidney, manifested by either:Pathological abnormalities or Markers of kidney damage (including abnormalities in the composition of the blood or urine or abnormalities in imaging tests). Lab Interpretation Abnormal (test code = 51057-3) [facility] [id number] 04:27:00 Test Item Value Reference Range Interpretation Comments SARS-CoV-2 Rapid ID NOW Not Detected Not Detected (test code = 20550-0) GILBERTO (test code = GILBERTO) ID NOW COVID-19 Assay is an isothermal nucleic acid amplification test intended for the qualitative detection of nucleic acid from SARS-CoV-2 viral RNA in nasopharyngeal (HUMAN GEOGRAPHY INSTRUCTOR) specimens. It is used under Emergency Use Authorization (EUA) by FDA. The limit of detection (LOD) of the assay is 125 Genome Equivalents/mL. A positive result is indicative of the presence of SARS-CoV-2 RNA. ?Clinical correlation with patient history and other diagnostic information is necessary to determine patient infection status. A negative (Not Detected) result does not preclude SARS-CoV-2 infection. In patients with clinical symptoms and other tests that are consistent with SARS-CoV-2 infection, negative results should be treated as presumptive negative and a new specimen should be tested with alternative PCR molecular test. Invalid: Please collect a new specimen for repeat patient testing if clinically indicated. Lab Interpretation Normal (test code = 25422-0) [facility] CenterL[facility] Whole [id number] 04:10:00 Test Item Value Reference Range Interpretation Comments LACTIC ACID (test code = 1.74 mmol/L 0.5-2.2 6920398186) [facility] CenterC[facility] (ID NOW RAPID TESTING)2020-01-29 02:17:00 Test Item Value Reference Range Interpretation Comments SARS-CoV-2 Rapid ID NOW Not Detected Not Detected (test code = 94216-3) GILBERTO (test code = GILBERTO) ID NOW COVID-19 Assay is an isothermal nucleic acid amplification test intended for the qualitative detection of nucleic acid from SARS-CoV-2 viral RNA in nasopharyngeal (HUMAN GEOGRAPHY INSTRUCTOR) specimens. It is used under Emergency Use Authorization (EUA) by FDA. The limit of detection (LOD) of the assay is 125 Genome Equivalents/mL. A positive result is indicative of the presence of SARS-CoV-2 RNA. ?Clinical correlation with patient history and other diagnostic information is necessary to determine patient infection status. A negative (Not Detected) result does not preclude SARS-CoV-2 infection. In patients with clinical symptoms and other tests that are consistent with SARS-CoV-2 infection, negative results should be treated as presumptive negative and a new specimen should be tested with alternative PCR molecular test. Invalid: Please collect a new specimen for repeat patient testing if clinically indicated. Lab Interpretation Normal (test code = 01181-8) [facility] CenterUrinalysis2020-06-07 02:14:00 Test Item Value Reference Range Interpretation Comments APPEARANCE (test code = Clear Clear 5309191457) COLOR (test code = Dark Yellow Yellow A 8361024310) PH (test code = 4.8-8.0 0717986285) SP GRAVITY (test code = 1.003-1.030 H 4598125884) GLU U QUAL (test code = Normal Normal 9158600445) BLOOD (test code = 1+ Negative A 6461298466) KETONES (test code = 5 mg/dL Negative A 9503781572) PROTEIN (test code = Negative Negative 2887-8) UROBILIN (test code = Normal Normal 5753418210) BILIRUBIN (test code = Negative Negative 4937915486) NITRITE (test code = Negative Negative 5108911804) LEUK ROGER (test code = Negative Negative 6248472196) RBC/HPF (test code = See_Comment H [Autom ated 4497533657) message] The sy stem which generated this result transmitted reference range : 0 - 3 HPF. The reference range was not used to interpret this result as normal/abnormal . WBC/HPF (test code = See_Comment [Autom ated 8164758597) message] The sy stem which generated this result transmitted reference range : 0 - 5 HPF. The reference range was not used to interpret this result as normal/abnormal . BACTERIA (test code = Moderate Negative A 5379644286) MUCOUS (test code = Slight Negative LPF A 9894978241) AMORPHOUS (test code = Rare Rare HPF 9515809910) SQ EPITH (test code = <1 See_Comment [Auto mated 1827621896) message] The sy stem which generated this result transmitted reference range : <=2 HPF. The reference range was not used to interpret this result as normal/abnormal . CA OXALATE (test code = See_Comment H [Au tomated 5961421272) message] The sy stem which generated this result transmitted reference range : <=1 HPF. The reference range was not used to interpret this result as normal/abnormal . HYAL CAST (test code = See_Comment H [Aut omated 1570390508) message] The sy stem which generated this result transmitted reference range : <=2 LPF. The reference range was not used to interpret this result as normal/abnormal . ASCORBIC ACID (test Negative code = 1125610766) Lab Interpretation Abnormal (test code = 78294-9) [facility] CenterCT ABDOMEN PELVIS W [id number] 00:25:08Persistent marked and severe dilatation of the transverse colon withoutfocal obstructing masses or lesions identified. This may be functional.Extent of distention is essentially stable compared to prior examination. CLINICAL HISTORY:Abdominal pain. Distention. COMPARISON:01/24/2020 TECHNIQUE: CT scan of the abdomen and pelvis ?performed. Contiguous axial CT imageswere obtained after administration of intravenous contrast material. Study was performed using ALARA principle. FINDINGS:Atelectasis left lower lobe. Liver, pancreas, spleen, adrenal glands, kidneys are stable. There is severe dilatation of the transverse colon as seen on priorexamination, with transition at the left colon/sigmoid junction. Noobstructing masses or lesions identified with stool burden within thesigmoid. This may be functional. No abscess or free air. There is some free fluid within the cul-de-sac. No evidence of aortic aneurysm or dissection. Transverse colon dilated up to 11 cm. Overall, this is essentially stablecompared to prior examination. There are no appreciable acute bony abnormalities. [facility], Radiant Results Inft User - 01/28/2020 7:26 PM CDTCLINICAL HISTORY:Abdominal pain. Distention.COMPARISON:01/24/2020TECHNIQUE: CT scan of the abdomen and pelvis performed. Contiguous axial CT imageswere obtained after administration of intravenous contrast material.Study was performed using ALARA principle. FINDINGS:Atelectasis left lower lobe.Liver, pancreas, spleen,adrenal glands, kidneys are stable.There is severe dilatation of the transverse colon as seen on priorexamination, with transition at the left colon/sigmoid junction. Noobstructing masses or lesions identified with stool burden within thesigmoid. This may be functional.No abscess or free air. There issome free fluid within the cul-de-sac.No evidence of aortic aneurysm or dissection.Transverse colon d ilated up to 11 cm. Overall, this is essentially stablecompared to prior examination.There are no appreciable acute bony abnormalities.IMPRESSIONPersistent marked and severe dilatation of the transverse colon withoutfocal obstructing masses or lesions identified. This may be functional.Extent of distention is essentially stable compared to prior examination. [facility] (NA, K, CL, CO2, GLUCOSE, BUN, CREATININE, CA)2020-01-28 23:38:00 Test Item Value Reference Range Interpretation Comments NA (test code = 143 mmol/L 135-145 6383315017) K (test code = 4.2 mmol/L 3.5-5 6250919639) CL (test code = 111 mmol/L 98-108 H 1162820200) CO2 TOTAL (test code = 28 mmol/L 23-31 0241859303) AGAP (test code = 2-16 1469242716) BUN (test code = 15 mg/dL 7-23 9632410361) GLUCOSE (test code = 68 mg/dL 70-110 L 2393148571) CREATININE (test code = 1.32 mg/dL 0.6-1.25 H 4208274272) CALCIUM (test code = 9.0 mg/dL 8.6-10.6 8174258400) eGFR Calculation mL/min/1.73m2 (Non-) (test code = 3302465526) eGFR Calculation mL/min/1.73m2 () (test code = 1701334034) GILBERTO (test code = GILBERTO) Association of Glomerular Filtration Rate (GFR) and Staging of Kidney Disease* + --+ --+ ------+| GFR (mL/min/1.73 m2) ?| With Kidney Damage ?| ?Without Kidney Damage+ --------+ --------+ +| ?>90 ?| ?Stage one ?| ? Normal ?+ ---+ ---+ -------+| ?60-89 ?| ?Stage two ?| ? Decreased GFR ? + --+ --+ ------+| ?30-59 ?| ?Stage three ?| ? Stage three ? + --+ --+ ------+| ?15-29 ?| ?Stage four ? | ? Stage four ?+ ---+ ---+ -------+| ?<15 (or dialysis) ? ?| ?Stage five ? | ? Stage five ?+ ---+ ---+ -------+ *Each stage assumes the associated GFR level has been in effect for at least three months. ?Stages 1 to 5, with or without kidney disease, indicate chronic kidney disease. Notes: Determination of stages one and two (with eGFR >59mL/min/1.73 m2) requires estimation of kidney damage for at least three months as defined by structural or functional abnormalities of the kidney, manifested by either:Pathological abnormalities or Markers of kidney damage (including abnormalities in the composition of the blood or urine or abnormalities in imaging tests). Lab Interpretation Abnormal (test code = 66601-5) [facility] CenterHepatic Function Panel (ALB, T.PRO, BILI T, BU/BC, ALT, AST, ALK PHOS)2020-01-28 23:38:00 Test Item Value Reference Range Interpretation Comments TOTAL BILI (test code = 8896119544) 0.6 mg/dL 0.1-1.1 BILI UNCON (test code = 6841499976) 0.6 mg/dL 0.1-1.1 BILI CONJ (test code = 7153387778) 0.0 mg/dL 0-0.3 T PROTEIN (test code = 6661446099) 5.7 g/dL 6.3-8.2 L ALBUMIN (test code = 9382012924) 3.8 g/dL 3.5-5 ALK PHOS (test code = 8978698982) 37 U/L 34-122 ALTv (test code = 1742-6) 23 U/L 5-50 AST(SGOT) (test code = 8467601697) 25 U/L 13-40 Lab Interpretation (test code = Abnormal 01519-7) [facility] CenterLipase [id number] 23:38:00 Test Item Value Reference Range Interpretation Comments LIPASE (test code = 5230708662) 62 U/L 0-220 Lab Interpretation (test code = Normal 55562-9) [facility] WITH [id number] 23:29:00 Test Item Value Reference Range Interpretation Comments WBC (test code = See_Comment [Automated 6690-2) message] The sy stem which generated this result transmitted reference range : 4.20 - 10.70 10*3/?L. The reference range was not used to interpret this result as normal/abnormal . RBC (test code = See_Comment L [Automated 789-8) message] The sy stem which generated this result transmitted reference range : 4.26 - 5.52 10*6/?L. The reference range was not used to interpret this result as normal/abnormal . HGB (test code = 11.0 g/dL 12.2-16.4 L 718-7) HCT (test code = 33.9 % 38.4-49.3 L 4544-3) MCV (test code = 91.6 fL 81.7-95.6 787-2) MCH (test code = 29.7 pg 26.1-32.7 785-6) MCHC (test code = 32.4 g/dL 31.2-35 786-4) RDW-SD (test code = 47.5 fL 38.5-51.6 88259-4) RDW-CV (test code = 14.3 % 12.1-15.4 788-0) PLT (test code = See_Comment [Automated 777-3) message] The sy stem which generated this result transmitted reference range : 150 - 328 10*3/ ?L. The reference r meredith was not used to interpret this result as normal/abnormal . MPV (test code = 10.6 fL 9.8-13 60456-6) NRBC/100 WBC (test See_Comment [Automat ed code = 3117590963) message] The system which generated this result transmitted reference range : 0.0 - 10.0 /100 WBCs. The refer ence range was not u sed to interpret th is result as normal/abnormal . NRBC x10^3 (test code <0.01 See_Comment [Auto mated = 1051735340) message] The s ystem which generated this result transmitted reference range : 10*3/?L. The reference range was not used to interpret this result as normal/abnormal . GRAN MAT (NEUT) % 50.1 % (test code = 770-8) IMM GRAN % (test code 0.20 % = 3669175815) LYMPH % (test code = 34.7 % 736-9) MONO % (test code = 12.5 % 5905-5) EOS % (test code = 1.8 % 713-8) BASO % (test code = 0.7 % 706-2) GRAN MAT x10^3(ANC) 2.28 10*3/uL 1.99-6.95 (test code = 3948567459) IMM GRAN x10^3 (test <0.03 0-0.06 code = 1245334739) LYMPH x10^3 (test code 1.58 10*3/uL 1.09-3.23 = 731-0) MONO x10^3 (test code 0.57 10*3/uL 0.36-1.02 = 742-7) EOS x10^3 (test code = 0.08 10*3/uL 0.06-0.53 711-2) BASO x10^3 (test code 0.03 10*3/uL 0.01-0.09 = 704-7) Lab Interpretation Abnormal (test code = 66713-7) [facility] METABOLIC PANEL (NA, K, CL, CO2, GLUCOSE, BUN, CREATININE, CA)2020-01-26 18:34:00 Test Item Value Reference Range Interpretation Comments NA (test code = 138 mmol/L 135-145 2020860033) K (test code = 3.7 mmol/L 3.5-5 6780059373) CL (test code = 108 mmol/L 98-108 8974384069) CO2 TOTAL (test code = 25 mmol/L 23-31 3592477043) AGAP (test code = 2-16 2881275514) BUN (test code = 9 mg/dL 7-23 3404515133) GLUCOSE (test code = 107 mg/dL 70-110 2196215317) CREATININE (test code 0.96 mg/dL 0.6-1.25 = 4276138352) CALCIUM (test code = 8.7 mg/dL 8.6-10.6 0388791900) eGFR Calculation mL/min/1.73m2 (Non-) (test code = 6899564003) eGFR Calculation mL/min/1.73m2 () (test code = 6770313727) GILBERTO (test code = GILBERTO) Association of Glomerular Filtration Rate (GFR) and Staging of Kidney Disease* + -+ + ---+| GFR (mL/min/1.73 m2) ?| With Kidney Damage ?| ?Without Kidney Damage+ -------+ ------+ ---------+| ?>90 ?| ?Stage one ?| ? Normal ?+ --+ -+ ----+| ?60-89 ?| ?Stage two ?| ? Decreased GFR ? + -+ + ---+| ?30-59 ?| ?Stage three ?| ? Stage three ? + -+ + ---+| ?15-29 ?| ?Stage four ? | ? Stage four ?+ --+ -+ ----+| ?<15 (or dialysis) ? ?| ?Stage five ? | ? Stage five ?+ --+ -+ ----+ *Each stage assumes the associated GFR level has been in effect for at least three months. ?Stages 1 to 5, with or without kidney disease, indicate chronic kidney disease. Notes: Determination of stages one and two (with eGFR >59mL/min/1.73 m2) requires estimation of kidney damage for at least three months as defined by structural or functional abnormalities of the kidney, manifested by either:Pathological abnormalities or Markers of kidney damage (including abnormalities in the composition of the blood or urine or abnormalities in imaging tests). [facility] CenterMagnesium [id number] 08:33:00 Test Item Value Reference Range Interpretation Comments MAGNESIUM (test code = 1.9 mg/dL 1.7-2.4 Sligh t hemolysis 7841288645) Lab Interpretation (test Normal code = 47452-9) [facility] CenterXR [id number] 06:18:53 Redemonstration of marked gaseous distention of the transverse anddescending colon. RL: 460 AFC: [id number] Ordering physician: HELENE GRIFFIN INDICATION: Abdominal pain COMPARISON: CT the abdomen and pelvis dated 01/24/2020 FINDINGS:Supine AP views of the abdomen and pelvis. There isredemonstration of marked distention of the transverse and descendingcolon. [facility], Radiant Results Inft User - 01/26/2020 1:20 AM CDTOrdering physician: HELENE GRIFFININDICATION: Abdominal painCOMPARISON: CT the abdomen and pelvis dated 01/24/2020FINDINGS: Supine AP views of the abdomen and pelvis. There isredemonstration of marked distention of the transverse and descendingcolon.IMPRESSIONRedemonstration of marked gaseous distention of the transverse anddescending colon.RL: 460AF: [id number] signed by Angeli Carrillo MD, PhD at 01/26/2020 1:18 AMWilson [facility]. [facility] Phosphorus [id number] 10:11:00 Test Item Value Reference Range Interpretation Comments PHOSPHORUS (test code = 7758366226) 3.9 mg/dL 2.5-5 Lab Interpretation (test code = Normal 55629-4) [facility] CenterCOVID-19 (ID NOW RAPID TESTING)2020-01-25 05:12:00 Test Item Value Reference Range Interpretation Comments SARS-CoV-2 Rapid ID NOW Not Detected Not Detected (test code = 76452-5) GILBERTO (test code = GILBERTO) ID NOW COVID-19 Assay is an isothermal nucleic acid amplification test intended for the qualitative detection of nucleic acid from SARS-CoV-2 viral RNA in nasopharyngeal (HUMAN GEOGRAPHY INSTRUCTOR) specimens. It is used under Emergency Use Authorization (EUA) by FDA. The limit of detection (LOD) of the assay is 125 Genome Equivalents/mL. A positive result is indicative of the presence of SARS-CoV-2 RNA. ?Clinical correlation with patient history and other diagnostic information is necessary to determine patient infection status. A negative (Not Detected) result does not preclude SARS-CoV-2 infection. In patients with clinical symptoms and other tests that are consistent with SARS-CoV-2 infection, negative results should be treated as presumptive negative and a new specimen should be tested with alternative PCR molecular test. Invalid: Please collect a new specimen for repeat patient testing if clinically indicated. Lab Interpretation Normal (test code = 59854-6) [facility] CenterLactic Acid Whole [id number] 04:34:00 Test Item Value Reference Range Interpretation Comments LACTIC ACID (test code = 0.89 mmol/L 0.5-2.2 2137906907) [facility] CenterCT ABDOMEN PELVIS W [id number] 02:47:02Impression: Marked distention and dilatation of the colon with stools and gas withoutany definite evidence of mural thickening or obstruction. There is gaseousdistention and dilatation of the distal small bowel as well. Rectal tubedecompression may be considered.Exam: CT ABDOMEN PELVIS W CONTRAST Clinical History: Abd pain, acute, generalized Comparison: February 2019 Findings: The visualized lungs are clear. There is no evidence of pleural orpericardial effusion. The liver, gallbladder, kidneys, adrenals, spleen, and the pancreas appearsnormal. There is no evidence of free fluid, air, or lymphadenopathy seen in theabdomen and pelvis. There is marked distention of the colon with stools and gas. The transversecolon measures approximately 16 cm in diameter. There is gaseous distentionof distal small bowel loops. Distal to the distention the sigmoid and therectum have small amount of stool with no focal lesions or signs ofobstruction. Anastomotic site in the splenic flexure is unremarkable. Urinary bladder is partially distended and shows nonspecific muralthickening. The prostate is enlarged and measures 4.6 cm in transversedimension. The abdominal wall, vasculature, and the bones are unremarkable. [facility], Radiant Results Inft User - 01/24/2020 9:48 PM CDTExam: CT ABDOMEN PELVIS W CONTRASTClinical History: Abd pain, acute, generalized Comparison: February 2019Findings: The visualized lungs are clear. There is no evidence of pleural orpericardial effusion.The liver, gallbladder, kidneys, adrenals, spleen, and the pancreas appearsnormal.There is no evidence of free fluid, air, or lymphadenopathy seen intheabdomen and pelvis.There is marked distention of the colon with stools and gas. The transversecolon measures approximately 16 cm in diameter. There is gaseous distentionof distal small bowel loops. Distal to the distention the sigmoid and therectum have small amount of stool with no focal lesions or signs ofobstruction. Anastomotic site in the splenic flexure is unremarkable.Urinary bladder is partially distended and shows nonspecific muralthickening. The prostate is enlarged and measures 4.6 cm in transversedimension.The abdominal wall, vasculature, and the bones are unremarkable.IMPRESSIONImpression: Marked distention and dilatation of the colon with stools and gas withoutany definite evidence of mural thickening or obstruction. There is gaseousdistention and dilatation of the distal small bowel as well. Rectal tubedecompression may be considered.[facility] CenterUrinalysis2020-06-03 01:51:00 Test Item Value Reference Range Interpretation Comments APPEARANCE (test code = Hazy Clear A 1806290181) COLOR (test code = Yellow Yellow 3566696195) PH (test code = 4.8-8.0 8288503300) SP GRAVITY (test code = 1.003-1.030 5881944622) GLU U QUAL (test code = Normal Normal 0907477646) BLOOD (test code = Negative Negative 4869864185) KETONES (test code = Negative Negative 2757432406) PROTEIN (test code = Negative Negative 2887-8) UROBILIN (test code = Normal Normal 9130881360) BILIRUBIN (test code = Negative Negative 3405054853) NITRITE (test code = Negative Negative 0054552542) LEUK ROGER (test code = Negative Negative 8770356916) RBC/HPF (test code = See_Comment H [Autom ated message] 5944388697) The system [employer] generated this result transmitted ref erence range: 0 - 3 HP F. The reference range was not used to int erpret this result as normal/abnormal . WBC/HPF (test code = See_Comment [Autom ated message] 5972019785) The system [employer] generated this result transmitted ref erence range: 0 - 5 HP F. The reference range was not used to int erpret this result as normal/abnormal . BACTERIA (test code = Negative Negative 9397114009) SQ EPITH (test code = <1 See_Comment [Auto mated message] 9228977696) The system [employer] generated this result transmitted ref erence range: <=2 HPF. The reference range was not used to int erpret this result as normal/abnormal . CA OXALATE (test code = See_Comment H [Au tomated message] 4264347542) The system [employer] generated this result transmitted ref erence range: <=1 HPF. The reference range was not used to int erpret this result as normal/abnormal . Lab Interpretation (test Abnormal code = 17368-6) [facility] Metabolic Panel (NA, K, CL, CO2, GLUCOSE, BUN, CREATININE, CA)2020-01-25 01:01:00 Test Item Value Reference Range Interpretation Comments NA (test code = 139 mmol/L 135-145 5060738794) K (test code = 4.6 mmol/L 3.5-5 Slight hemoly sis 4975896327) CL (test code = 107 mmol/L 98-108 5609376354) CO2 TOTAL (test 26 mmol/L 23-31 code = 8359475790) AGAP (test code = 2-16 3624129123) BUN (test code = 23 mg/dL 7-23 Slight hemo lysis 3772368025) GLUCOSE (test code 94 mg/dL 70-110 = 8256187828) CREATININE (test 1.13 mg/dL 0.6-1.25 code = 6977634517) CALCIUM (test code 8.9 mg/dL 8.6-10.6 = 7533389434) eGFR Calculation mL/min/1.73m2 (Non-) (test code = 4616403257) eGFR Calculation mL/min/1.73m2 () (test code = 4982149331) GIL[place]ERT[employer] (test code = Association of [employer]) Glomerular Filtration Rate (GFR) and Staging of Kidney Disease* + ----+ ------+ +| GFR (mL/min/1.73 m2) ?| With Kidney Damage ?| ?Without Kidney Damage+ +--------- +------- +| ?>90 ?| ?Stage one ?| ? Normal ?+ -----+ -------+ +| ?60-89 ?| ?Stage two ?| ? Decreased GFR ? + ----+ ------+ +| ?30-59 ?| ?Stage three ?| ? Stage three ? + ----+ ------+ +| ?15-29 ?| ?Stage four ? | ? Stage four ?+ -----+ -------+ +| ?<15 (or dialysis) ? ?| ?Stage five ? | ? Stage five ?+ -----+ -------+ + *Each stage assumes the associated GFR level has been in effect for at least three months. ?Stages 1 to 5, with or without kidney disease, indicate chronic kidney disease. Notes: Determination of stages one and two (with eGFR >59mL/min/1.73 m2) requires estimation of kidney damage for at least three months as defined by structural or functional abnormalities of the kidney, manifested by either:Pathological abnormalities or Markers of kidney damage (including abnormalities in the composition of the blood or urine or abnormalities in imaging tests). [facility] (ALB, T.PRO, BILI T, BU/BC, ALT, AST, ALK PHOS)2020-01-25 01:01:00 Test Item Value Reference Range Interpretation Comments TOTAL BILI (test code = 6885704401) 0.7 mg/dL 0.1-1.1 BILI UNCON (test code = 2519787129) 0.6 mg/dL 0.1-1.1 BILI CONJ (test code = 2964713707) 0.0 mg/dL 0-0.3 T PROTEIN (test code = 1936378144) 6.2 g/dL 6.3-8.2 L ALBUMIN (test code = 7230931471) 4.1 g/dL 3.5-5 ALK PHOS (test code = 0380945747) 46 U/L 34-122 ALTv (test code = 1742-6) 27 U/L 5-50 AST(SGOT) (test code = 8003723046) 31 U/L 13-40 Lab Interpretation (test code = Abnormal 87196-7) [facility] Center[facility] [id number] 01:01:00 Test Item Value Reference Range Interpretation Comments LIPASE (test code = 4927475925) 246 U/L 0-220 H Lab Interpretation (test code = Abnormal 24978-7) [facility] CenterCBC WITH [id number] 00:49:00 Test Item Value Reference Range Interpretation Comments WBC (test code = See_Comment [Automated 6690-2) message] The sy stem which generated this result transmitted reference range : 4.20 - 10.70 10*3/?L. The reference range was not used to interpret this result as normal/abnormal . RBC (test code = See_Comment L [Automated 789-8) message] The sy stem which generated this result transmitted reference range : 4.26 - 5.52 10*6/?L. The reference range was not used to interpret this result as normal/abnormal . HGB (test code = 11.1 g/dL 12.2-16.4 L 718-7) HCT (test code = 33.1 % 38.4-49.3 L 4544-3) MCV (test code = 89.9 fL 81.7-95.6 787-2) MCH (test code = 30.2 pg 26.1-32.7 785-6) MCHC (test code = 33.5 g/dL 31.2-35 786-4) RDW-SD (test code = 46.8 fL 38.5-51.6 32189-3) RDW-CV (test code = 14.2 % 12.1-15.4 788-0) PLT (test code = See_Comment [Automated 777-3) message] The sy stem which generated this result transmitted reference range : 150 - 328 10*3/ ?L. The reference r meredith was not used to interpret this result as normal/abnormal . MPV (test code = 10.7 fL 9.8-13 29011-5) NRBC/100 WBC (test See_Comment [Automat ed code = 6396602240) message] The system which generated this result transmitted reference range : 0.0 - 10.0 /100 WBCs. The refer ence range was not u sed to interpret th is result as normal/abnormal . NRBC x10^3 (test code <0.01 See_Comment [Auto mated = 4254573836) message] The s ystem which generated this result transmitted reference range : 10*3/?L. The reference range was not used to interpret this result as normal/abnormal . GRAN MAT (NEUT) % 56.9 % (test code = 770-8) IMM GRAN % (test code 0.20 % = 3769451422) LYMPH % (test code = 31.2 % 736-9) MONO % (test code = 9.7 % 5905-5) EOS % (test code = 1.6 % 713-8) BASO % (test code = 0.4 % 706-2) GRAN MAT x10^3(ANC) 2.86 10*3/uL 1.99-6.95 (test code = 8053569105) IMM GRAN x10^3 (test <0.03 0-0.06 code = 2685829931) LYMPH x10^3 (test code 1.57 10*3/uL 1.09-3.23 = 731-0) MONO x10^3 (test code 0.49 10*3/uL 0.36-1.02 = 742-7) EOS x10^3 (test code = 0.08 10*3/uL 0.06-0.53 711-2) BASO x10^3 (test code <0.03 0.01-0.09 = 704-7) Lab Interpretation Abnormal (test code = 51414-7) [facility]- X[facility] ABDOMEN 1 [id number] 07:32:00 Name: DORA JOSEPH [facility] : 1970 Age/S: 49 / M [address] [address] Unit #: [id number] Loc: [place] [address] Phys: Jay Mayo MD Acct: [id number] Dis Date: Status: ADM IN PHONE #: [phone] Exam Date: 01/10/2020 0658 FAX #: Reason: follow up colonic ileus EXAMS:CPT: [id number] XR ABDOMEN 1 V 02494 Fluoro Time: DAP (Gy m2): Air Kerma (mGy): EXAM: - XR ABDOMEN 1 V HISTORY: follow up colonic ileus Location code:C3 COMPARISON: 01/09/2020 FINDINGS: 3 views of the abdomen are provided. Drainage catheter about the left upper quadrant is seen. Severe gaseous distention of loops of colon persist without air-fluid levels. Enteric tube is no longer visualized. IMPRESSION: 1. Severe colonic distention is unchanged. at 0732 Reported and signed by: Marcello Santacruz MD CC: Jay Vasquez; Mark Perea MD PAGE 1 Signed Report Name: DORA JOSEPH [facility] : 1970 Age/S: 49 / M [address] [address] Unit #: [id number] Loc: [place] [address] Phys: Jay Mayo MD Acct: [id number] Dis Date: Status: ADM IN PHONE #: [phone] Exam Date: 01/10/2020 0658 FAX #: Reason: follow up colonic ileus EXAMS: CPT: [id number] XR ABDOMEN 1 V 68364 Fluoro Time: DAP (Gy m2): Air Kerma (mGy): <Continued> Technologist: Alexander De Leon RT(R)(CT) Trnscb Date/Time: 01/10/2020 (0732) t.FLEXR.CB5 Orig Print D/T: S: 01/10/2020 (0736) PAGE 2 Signed ReportCOMPREHENSIVE METABOLIC [id number] 05:56:00 Test Item Value Reference Range Interpretation Comments SODIUM (test code = NA) 140 mmol/L 134-147 N POTASSIUM (test code = 4.0 mmol/L 3.4-5.0 N K) CHLORIDE (test code = 110 mmol/L 100-108 H CL) CARBON DIOXIDE (test 25 mmol/L 21-32 N code = CO2) ANION GAP (test code = 5.0 GAP calc 4.0-15.0 N GAP) GLUCOSE (test code = 83 MG/DL 70-110 N GLU) BLOOD UREA NITROGEN 6 MG/DL 7-18 L (test code = BUN) GLOMERULAR FILTRATION >=60 max estimate >60 RATE (test code = GFR) estGFR CREATININE (test code = 1.2 MG/DL 0.8-1.3 N CREAT) TOTAL PROTEIN (test code 6.0 G/DL 6.4-8.2 L = PROT) ALBUMIN (test code = 3.5 G/DL 3.4-5.0 N ALB) GLOBULIN (test code = 2.5 GM/dL GLOB) ALBUMIN/GLOBULIN RATIO 1.4 RATIO 1.2-2.2 N (test code = A/G) CALCIUM (test code = CA) 9.0 MG/DL 8.5-10.1 N BILIRUBIN TOTAL (test 0.60 MG/DL 0.2-1.2 N code = BILT) SGOT/AST (test code = 17 Unit/L 15-37 N AST) SGPT/ALT (test code = 20 Unit/L 12-78 N ALT) ALKALINE PHOSPHATASE 46 Unit/L 50-136 L TOTAL (test code = ALKP) CBC W/AUTO [id number] 05:42:00 Test Item Value Reference Range Interpretation Comments WHITE BLOOD CELL (test code = 3.8 K/mm3 3.5-11.0 N WBC) RED BLOOD CELL (test code = RBC) 4.22 M/mm3 4.70-6.10 L HEMOGLOBIN (test code = HGB) 11.8 G/DL 12.3-15.9 L HEMATOCRIT (test code = HCT) 38.5 % 35.8-46.7 N MEAN CELL VOLUME (test code = 91.2 Fl 86.3-98.9 N MCV) MEAN CELL HGB (test code = MCH) 28.0 pg 28.9-34.4 L MEAN CELL HGB CONCETRATION (test 30.6 G/DL 32.1-34.5 L code = MCHC) RED CELL DISTRIBUTION WIDTH (test 14.8 SD 11.5-14.5 H code = RDW) PLATELET COUNT (test code = PLT) 147.0 K/mm3 150-450 L MEAN PLATELET VOLUME (test code = 10.70 fL 7.0-9.6 H MPV) NEUTROPHIL % (test code = NT%) 46.1 % 40-76 LYMPHOCYTE % (test code = LY%) 38.3 % 20.5-51.1 N MONOCYTE % (test code = MO%) 11.5 % 1.7-9.3 H EOSINOPHIL % (test code = EO%) 3.1 % 0.0-6.0 N BASOPHIL % (test code = BA%) 1.0 % 0.0-2.0 N NEUTROPHIL # (test code = NT#) 1.77 K/mm3 1.8-7.6 L LYMPHOCYTE # (test code = LY#) 1.5 K/mm3 0.6-3.0 N MONOCYTE # (test code = MO#) 0.4 K/mm3 0.2-1.5 N EOSINOPHIL # (test code = EO#) 0.1 K/mm3 0.0-0.4 N BASOPHIL # (test code = BA#) 0.0 K/mm3 0.0-0.2 N MANUAL DIFF REQUIRED (test code = NO DIFF/SCN CRITERIA MDIFF) BASIC METABOLIC [id number] 06:59:00 Test Item Value Reference Range Interpretation Comments SODIUM (test code = NA) 142 mmol/L 134-147 N POTASSIUM (test code = 3.7 mmol/L 3.4-5.0 N K) CHLORIDE (test code = 110 mmol/L 100-108 H CL) CARBON DIOXIDE (test 26 mmol/L 21-32 N code = CO2) ANION GAP (test code = 6.0 GAP calc 4.0-15.0 N GAP) GLUCOSE (test code = 82 MG/DL 70-110 N GLU) BLOOD UREA NITROGEN 7 MG/DL 7-18 N (test code = BUN) GLOMERULAR FILTRATION >=60 max estimate >60 RATE (test code = GFR) estGFR CREATININE (test code = 1.1 MG/DL 0.8-1.3 N CREAT) CALCIUM (test code = CA) 8.5 MG/DL 8.5-10.1 N [id number] 06:59:00 Test Item Value Reference Range Interpretation Comments MAGNESIUM (test code = MAG) 2.2 MG/DL 1.8-2.4 PROTHROMBIN [id number] 06:39:00 Test Item Value Reference Range Interpretation Comments PT PATIENT (test code = PTP) 13.1 SECONDS 9.3-12.9 H INTERNATIONAL NORMAL RATIO 1.16 INR Unit 0.8-1.2 N (test code = INR) CBC W/AUTO [id number] 06:22:00 Test Item Value Reference Range Interpretation Comments WHITE BLOOD CELL (test code = 4.5 K/mm3 3.5-11.0 N WBC) RED BLOOD CELL (test code = RBC) 4.02 M/mm3 4.70-6.10 L HEMOGLOBIN (test code = HGB) 11.4 G/DL 12.3-15.9 L HEMATOCRIT (test code = HCT) 36.9 % 35.8-46.7 N MEAN CELL VOLUME (test code = 91.8 Fl 86.3-98.9 N MCV) MEAN CELL HGB (test code = MCH) 28.4 pg 28.9-34.4 L MEAN CELL HGB CONCETRATION (test 30.9 G/DL 32.1-34.5 L code = MCHC) RED CELL DISTRIBUTION WIDTH (test 14.9 SD 11.5-14.5 H code = RDW) PLATELET COUNT (test code = PLT) 151.0 K/mm3 150-450 N MEAN PLATELET VOLUME (test code = 10.40 fL 7.0-9.6 H MPV) NEUTROPHIL % (test code = NT%) 62.8 % 40-76 N LYMPHOCYTE % (test code = LY%) 24.4 % 20.5-51.1 N MONOCYTE % (test code = MO%) 10.4 % 1.7-9.3 H EOSINOPHIL % (test code = EO%) 2.2 % 0.0-6.0 N BASOPHIL % (test code = BA%) 0.2 % 0.0-2.0 N NEUTROPHIL # (test code = NT#) 2.85 K/mm3 1.8-7.6 N LYMPHOCYTE # (test code = LY#) 1.1 K/mm3 0.6-3.0 N MONOCYTE # (test code = MO#) 0.5 K/mm3 0.2-1.5 N EOSINOPHIL # (test code = EO#) 0.1 K/mm3 0.0-0.4 N BASOPHIL # (test code = BA#) 0.0 K/mm3 0.0-0.2 N MANUAL DIFF REQUIRED (test code = NO DIFF/SCN CRITERIA MDIFF) - XR ABDOMEN 1 [id number] 05:39:00 Name: DORA JOSEPH [facility] : 1970 Age/S: 49 / M [address] [address] Unit #: [id number] Loc: [place] [address] 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 [facility] Acct: [id number] Dis Date: Status: ADM IN PHONE #: [phone] Exam Date: 01/09/2020 0568 FAX #: Reason: colonic ileus/obstruction EXAMS: CPT: [id number] XR ABDOMEN 1 V 81162 Fluoro Time: DAP (Gy m2): Air Kerma (mGy): Exam: KUB. Location: H 12 History: colonic ileus/obstruction COMPARISON: 01/08/2020 Findings: A supine view of the abdomen demonstrates no change has occurred in the dilatation of the distal colon. No organomegaly, abnormal massesor calcifications are seen. No pneumatosis or free air is present. Impression: Stable abdomen. at 0539 Reported and signed by: Teo Do M.D. CC: Andre Solano; Mark Perea MD PAGE 1 Signed Report Name: DORA JOSEPH [facility] : 1970 Age/S: 49 / M [address] [address] Unit #: [id number] Loc: [place] [address] 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 Acct: [id number] Dis Date: Status: ADM IN PHONE #: [phone] Exam Date: 01/09/2020522 FAX #: Reason: colonic ileus/obstruction EXAMS: CPT: [id number] XR ABDOMEN 1 V 69635 Fluoro Time: DAP (Gy m2): Air Kerma (mGy): <Continued> Technologist: Carrie Barnett, RT(R)(CT) Trnscb Date/Time: 01/09/2020 (05) [id number] Orig Print D/T: S: 01/09/2020 (0542) PAGE 2 Signed ReportCoronavirus 2018 nCoV [id number] 22:38:00 Test Item Value Reference Range Interpretation Comments Coronavirus 2019 nCoV Bedside (test Negative Negative code = [id number]) Emergent procedure? YESCoronavirus 2018 nCoV [id number] 22:38:00 Test Item Value Reference Range Interpretation Comments Coronavirus 2019 nCoV Bedside (test Negative Negative code = [id number]) Emergent procedure? YESBASIC METABOLIC [id number] 18:42:00 Test Item Value Reference Range Interpretation Comments SODIUM (test code = NA) 142 mmol/L 134-147 N POTASSIUM (test code = 3.7 mmol/L 3.4-5.0 N K) CHLORIDE (test code = 107 mmol/L 100-108 N CL) CARBON DIOXIDE (test 29 mmol/L 21-32 N code = CO2) ANION GAP (test code = 6.0 GAP calc 4.0-15.0 N GAP) GLUCOSE (test code = 87 MG/DL 70-110 N GLU) BLOOD UREA NITROGEN 7 MG/DL 7-18 N (test code = BUN) GLOMERULAR FILTRATION >=60 max estimate >60 RATE (test code = GFR) estGFR CREATININE (test code = 1.2 MG/DL 0.8-1.3 N CREAT) CALCIUM (test code = CA) 8.5 MG/DL 8.5-10.1 N CBC W/AUTO [id number] 10:50:00 Test Item Value Reference Range Interpretation Comments WHITE BLOOD CELL (test code = 5.2 K/mm3 3.5-11.0 N WBC) RED BLOOD CELL (test code = RBC) 4.30 M/mm3 4.70-6.10 L HEMOGLOBIN (test code = HGB) 12.1 G/DL 12.3-15.9 L HEMATOCRIT (test code = HCT) 39.8 % 35.8-46.7 N MEAN CELL VOLUME (test code = 92.6 Fl 86.3-98.9 N MCV) MEAN CELL HGB (test code = MCH) 28.1 pg 28.9-34.4 L MEAN CELL HGB CONCETRATION (test 30.4 G/DL 32.1-34.5 L code = MCHC) RED CELL DISTRIBUTION WIDTH (test 15.0 SD 11.5-14.5 H code = RDW) PLATELET COUNT (test code = PLT) 182.0 K/mm3 150-450 N MEAN PLATELET VOLUME (test code = 10.80 fL 7.0-9.6 H MPV) NEUTROPHIL % (test code = NT%) 61.1 % 40-76 LYMPHOCYTE % (test code = LY%) 26.1 % 20.5-51.1 N MONOCYTE % (test code = MO%) 9.7 % 1.7-9.3 H EOSINOPHIL % (test code = EO%) 2.7 % 0.0-6.0 N BASOPHIL % (test code = BA%) 0.4 % 0.0-2.0 N NEUTROPHIL # (test code = NT#) 3.16 K/mm3 1.8-7.6 N LYMPHOCYTE # (test code = LY#) 1.4 K/mm3 0.6-3.0 N MONOCYTE # (test code = MO#) 0.5 K/mm3 0.2-1.5 N EOSINOPHIL # (test code = EO#) 0.1 K/mm3 0.0-0.4 N BASOPHIL # (test code = BA#) 0.0 K/mm3 0.0-0.2 N MANUAL DIFF REQUIRED (test code = NO DIFF/SCN CRITERIA MDIFF) COMPREHENSIVE METABOLIC [id number] 10:46:00 Test Item Value Reference Range Interpretation Comments SODIUM (test code = NA) 140 mmol/L 134-147 N POTASSIUM (test code = 3.7 mmol/L 3.4-5.0 N K) CHLORIDE (test code = 108 mmol/L 100-108 CL) CARBON DIOXIDE (test 25 mmol/L 21-32 code = CO2) ANION GAP (test code = 7.0 GAP calc 4.0-15.0 N GAP) GLUCOSE (test code = 104 MG/DL 70-110 N GLU) BLOOD UREA NITROGEN 8 MG/DL 7-18 N (test code = BUN) GLOMERULAR FILTRATION >=60 max estimate >60 RATE (test code = GFR) estGFR CREATININE (test code = 1.3 MG/DL 0.8-1.3 N CREAT) TOTAL PROTEIN (test code 6.7 G/DL 6.4-8.2 = PROT) ALBUMIN (test code = 3.8 G/DL 3.4-5.0 ALB) GLOBULIN (test code = 2.9 GM/dL GLOB) ALBUMIN/GLOBULIN RATIO 1.3 RATIO 1.2-2.2 N (test code = A/G) CALCIUM (test code = CA) 8.8 MG/DL 8.5-10.1 N BILIRUBIN TOTAL (test 0.70 MG/DL 0.2-1.2 N code = BILT) SGOT/AST (test code = 16 Unit/L 15-37 N AST) SGPT/ALT (test code = 23 Unit/L 12-78 N ALT) ALKALINE PHOSPHATASE 50 Unit/L 50-136 N TOTAL (test code = ALKP) [id number] 10:46:00 Test Item Value Reference Range Interpretation Comments MAGNESIUM (test code = MAG) 2.6 MG/DL 1.8-2.4 H COMPREHENSIVE METABOLIC [id number] 10:34:00 Test Item Value Reference Range Interpretation Comments SODIUM (test code = NA) 140 mmol/L 134-147 N POTASSIUM (test code = K) 3.7 mmol/L 3.4-5.0 N CHLORIDE (test code = CL) 108 mmol/L 100-108 CARBON DIOXIDE (test code = CO2) 25 mmol/L 21-32 ANION GAP (test code = GAP) 7.0 GAP calc 4.0-15.0 N GLUCOSE (test code = GLU) 104 MG/DL 70-110 N BLOOD UREA NITROGEN (test code = 8 MG/DL 7-18 N BUN) GLOMERULAR FILTRATION RATE (test estGFR >60 code = GFR) CREATININE (test code = CREAT) MG/DL 0.8-1.3 TOTAL PROTEIN (test code = PROT) G/DL 6.4-8.2 ALBUMIN (test code = ALB) G/DL 3.4-5.0 GLOBULIN (test code = GLOB) GM/dL ALBUMIN/GLOBULIN RATIO (test RATIO 1.2-2.2 code = A/G) CALCIUM (test code = CA) 8.8 MG/DL 8.5-10.1 N BILIRUBIN TOTAL (test code = MG/DL 0.2-1.2 BILT) SGOT/AST (test code = AST) Unit/L 15-37 SGPT/ALT (test code = ALT) Unit/L 12-78 ALKALINE PHOSPHATASE TOTAL (test Unit/L 50-136 code = ALKP) [id number] 10:34:00 Test Item Value Reference Range Interpretation Comments MAGNESIUM (test code = MAG) MG/DL 1.8-2.4 - XR ABDOMEN 1 [id number] 08:28:00 Name: DORA JOSEPH [facility] : 1970 Age/S: 49 / M [address] [facility] Unit #: [id number] Loc: [place] [address] Phys: Yas Edwards MD Acct: [id number] Dis Date: Status: ADM IN PHONE #: [phone] Exam Date: 01/08/2020 0510 FAX #: Reason: ileus EXAMS: CPT: [id number] XR ABDOMEN 1V 87561 Fluoro Time: DAP (Gy m2): Air Kerma (mGy): KUB Location T 18 INDICATION: Ileus, bowel obstruction Comparison 01/07/2020 and 01/06/[address] Significant gaseous distention of the colon, may have increased slightly from the prior studies. Apparent minimal small bowel gas in the mid abdomen. IMPRESSION: Generalized ileus versus distal obstruction. at 0828 Reported and signed by: Bernardo Ochoa M.D. CC: Mark Perea MD; Yas Edwards MD PAGE 1 Signed Report Name[facility] 1970 Age/S: 49 / M [address] [address] Unit #: [id number] Loc: [place] [address] Phys: Yas Edwards MD Acct: [id number] Dis Date: Status: ADM IN PHONE #: [phone] Exam Date: 01/08/2020509 FAX #: Reason: ileus EXAMS: CPT: [id number] XR ABDOMEN 1 V 97895 Fluoro Time: DAP (Gy m2): Air Kerma (mGy): <Continued> Technologist: Carrie Barnett, RT(R)(CT); ... Trnscb Date/Time: 01/08/2020 (827) t.SDR.JTM Orig Print D/T: S: 01/08/2020 (31) PAGE 2 Signed ReportCOMPREHENSIVE METABOLIC [id number] 07:08:00 Test Item Value Reference Range Interpretation Comments SODIUM (test code = NA) 150 mmol/L 134-147 H POTASSIUM (test code = 2.5 mmol/L 3.4-5.0 LL K) CHLORIDE (test code = 127 mmol/L 100-108 H CL) CARBON DIOXIDE (test 16 mmol/L 21-32 L code = CO2) ANION GAP (test code = 7.0 GAP calc 4.0-15.0 N GAP) GLUCOSE (test code = 52 MG/DL 70-110 L GLU) BLOOD UREA NITROGEN 7 MG/DL 7-18 N (test code = BUN) GLOMERULAR FILTRATION >=60 max estimate >60 RATE (test code = GFR) estGFR CREATININE (test code = 0.5 MG/DL 0.8-1.3 L CREAT) TOTAL PROTEIN (test code 2.9 G/DL 6.4-8.2 L = PROT) ALBUMIN (test code = 1.7 G/DL 3.4-5.0 L ALB) GLOBULIN (test code = 1.2 GM/dL GLOB) ALBUMIN/GLOBULIN RATIO 1.4 RATIO 1.2-2.2 N (test code = A/G) CALCIUM (test code = CA) <5.0 MG/DL 8.5-10.1 LL BILIRUBIN TOTAL (test 0.30 MG/DL 0.2-1.2 N code = BILT) SGOT/AST (test code = 8 Unit/L 15-37 L AST) SGPT/ALT (test code = 10 Unit/L 12-78 L ALT) ALKALINE PHOSPHATASE 21 Unit/L 50-136 L TOTAL (test code = ALKP) [id number] 07:08:00 Test Item Value Reference Range Interpretation Comments MAGNESIUM (test code = MAG) 1.3 MG/DL 1.8-2.4 L COMPREHENSIVE METABOLIC [id number] 05:16:00 Test Item Value Reference Range Interpretation Comments SODIUM (test code = NA) 150 mmol/L 134-147 H POTASSIUM (test code = 2.5 mmol/L 3.4-5.0 LL K) CHLORIDE (test code = 127 mmol/L 100-108 H CL) CARBON DIOXIDE (test 16 mmol/L 21-32 L code = CO2) ANION GAP (test code = 7.0 GAP calc 4.0-15.0 N GAP) GLUCOSE (test code = 52 MG/DL 70-110 L GLU) BLOOD UREA NITROGEN 7 MG/DL 7-18 N (test code = BUN) GLOMERULAR FILTRATION >=60 max estimate >60 RATE (test code = GFR) estGFR CREATININE (test code = 0.5 MG/DL 0.8-1.3 L CREAT) TOTAL PROTEIN (test code 2.9 G/DL 6.4-8.2 L = PROT) ALBUMIN (test code = 1.7 G/DL 3.4-5.0 L ALB) GLOBULIN (test code = 1.2 GM/dL GLOB) ALBUMIN/GLOBULIN RATIO 1.4 RATIO 1.2-2.2 N (test code = A/G) CALCIUM (test code = CA) MG/DL 8.5-10.1 BILIRUBIN TOTAL (test 0.30 MG/DL 0.2-1.2 N code = BILT) SGOT/AST (test code = 8 Unit/L 15-37 L AST) SGPT/ALT (test code = 10 Unit/L 12-78 L ALT) ALKALINE PHOSPHATASE 21 Unit/L 50-136 L TOTAL (test code = ALKP) [id number] 05:16:00 Test Item Value Reference Range Interpretation Comments MAGNESIUM (test code = MAG) 1.3 MG/DL 1.8-2.4 L CBC W/AUTO [id number] 05:02:00 Test Item Value Reference Range Interpretation Comments WHITE BLOOD CELL (test code = 2.3 K/mm3 3.5-11.0 LL WBC) RED BLOOD CELL (test code = RBC) 2.70 M/mm3 4.70-6.10 L HEMOGLOBIN (test code = HGB) 7.6 G/DL 12.3-15.9 L HEMATOCRIT (test code = HCT) 25.3 % 35.8-46.7 L MEAN CELL VOLUME (test code = 93.7 Fl 86.3-98.9 N MCV) MEAN CELL HGB (test code = MCH) 28.1 pg 28.9-34.4 L MEAN CELL HGB CONCETRATION (test 30.0 G/DL 32.1-34.5 L code = MCHC) RED CELL DISTRIBUTION WIDTH (test 14.7 SD 11.5-14.5 H code = RDW) PLATELET COUNT (test code = PLT) 113.0 K/mm3 150-450 L MEAN PLATELET VOLUME (test code = 10.30 fL 7.0-9.6 H MPV) NEUTROPHIL % (test code = NT%) 48.9 % 40-76 LYMPHOCYTE % (test code = LY%) 36.8 % 20.5-51.1 N MONOCYTE % (test code = MO%) 11.3 % 1.7-9.3 H EOSINOPHIL % (test code = EO%) 2.6 % 0.0-6.0 N BASOPHIL % (test code = BA%) 0.4 % 0.0-2.0 N NEUTROPHIL # (test code = NT#) 1.13 K/mm3 1.8-7.6 L LYMPHOCYTE # (test code = LY#) 0.9 K/mm3 0.6-3.0 N MONOCYTE # (test code = MO#) 0.3 K/mm3 0.2-1.5 N EOSINOPHIL # (test code = EO#) 0.1 K/mm3 0.0-0.4 N BASOPHIL # (test code = BA#) 0.0 K/mm3 0.0-0.2 N MANUAL DIFF REQUIRED (test code = NO DIFF/SCN CRITERIA MDIFF) [id number] 16:51:00 Test Item Value Reference Range Interpretation Comments MAGNESIUM (test code = MAG) 2.3 MG/DL 1.8-2.4 N FE W/TOTAL IRON BINDING CAP.2020-01-07 16:51:00 Test Item Value Reference Range Interpretation Comments SERUM IRON (test code = IRON) 38 mcG/DL 65-175 L TOTAL IRON BINDING CAPACITY (test 322 mcG/DL 250-450 N code = TIBC) IRON SATURATION (test code = 12 % calc 12-57 N FESAT) [id number] 16:51:00 Test Item Value Reference Range Interpretation Comments FERRITIN (test code = DAVID) 17.6 NG/ML 5.0-323.0 N CALCIUM [id number] 16:50:00 Test Item Value Reference Range Interpretation Comments CALCIUM IONIZED (test code = NAVEED) 1.12 mmol/L 1.12-1.32 N - XR ABDOMEN 1 [id number] 10:29:00 Name: DORA JOSEPH [facility] : 1970 Age/S: 49 / M [address] Unit #: [id number] Loc: [place] [address] Phys: Verona Frost PA-C Acct: [id number] Dis Date: Status: ADM IN PHONE #: [phone] Exam Date: 01/07/2020 0712 FAX #: Reason: reassess SBO EXAMS: CPT: [id number] XR ABDOMEN 1 V 66024 Fluoro Time: DAP (Gy m2): Air Kerma (mGy): CLINICAL INFORMATION: Bowel obstruction.Dictation location: J9 Comparison: 01/06/2020 reported distended colon Technique: Supine view. Findings. Once again noted is diffuse air-filled distention of the colon particularly the transverse section. Formed fecal matter is seen in the left colon and pelvis. An NG tube is in place. No destructive bone lesion or pathologic calcification identified. IMPRESSION: 1. Diffuse gaseous distention of the colon is again identified of approximately similar degree. 2. NG tube in place. at 1029 Reported and signed by: Sukhwinder Hinkle M.D. CC: Mark Perea MD; Verona Frost PAGE 1 Signed Report Name: DORA JOSEPH [facility] : 1970 Age/S: 49 / M [address] Unit #: [id number] Loc: [place] [address] Phys:Verona Frost PA-C Acct: [id number] Dis Date: Status: ADM IN PHONE #: [phone] Exam Date: 01/07/2020711 FAX #: Reason: reassess SBO EXAMS: CPT: [id number] XR ABDOMEN 1 V 83719 Fluoro Time: DAP (Gy m2): Air Kerma (mGy): <Continued> Technologist: Alexander De Leon RT(R)(CT) Trnscb Date/Time: 01/07/2020 (1029) [email or web address].AGV Orig Print D/T: S: 01/07/2020 (3786) PAGE 2 Signed ReportBASIC METABOLIC PANEL 2020-01-07 07:01:00 Test Item Value Reference Range Interpretation Comments SODIUM (test code = NA) 146 mmol/L 134-147 N POTASSIUM (test code = 2.6 mmol/L 3.4-5.0 LL K) CHLORIDE (test code = 122 mmol/L 100-108 H CL) CARBON DIOXIDE (test 15 mmol/L 21-32 L code = CO2) ANION GAP (test code = 9.0 GAP calc 4.0-15.0 N GAP) GLUCOSE (test code = 123 MG/DL 70-110 H GLU) BLOOD UREA NITROGEN 11 MG/DL 7-18 N (test code = BUN) GLOMERULAR FILTRATION >=60 max estimate >60 RATE (test code = GFR) estGFR CREATININE (test code = 0.7 MG/DL 0.8-1.3 L CREAT) CALCIUM (test code = CA) 5.4 MG/DL 8.5-10.1 LL CBC W/AUTO [id number] 06:49:00 Test Item Value Reference Range Interpretation Comments WHITE BLOOD CELL (test code = 4.0 K/mm3 3.5-11.0 N WBC) RED BLOOD CELL (test code = RBC) 3.29 M/mm3 4.70-6.10 L HEMOGLOBIN (test code = HGB) 9.2 G/DL 12.3-15.9 L HEMATOCRIT (test code = HCT) 31.0 % 35.8-46.7 L MEAN CELL VOLUME (test code = 94.2 Fl 86.3-98.9 N MCV) MEAN CELL HGB (test code = MCH) 28.0 pg 28.9-34.4 L MEAN CELL HGB CONCETRATION (test 29.7 G/DL 32.1-34.5 L code = MCHC) RED CELL DISTRIBUTION WIDTH (test 14.9 SD 11.5-14.5 H code = RDW) PLATELET COUNT (test code = PLT) 121.0 K/mm3 150-450 L MEAN PLATELET VOLUME (test code = 10.40 fL 7.0-9.6 H MPV) NEUTROPHIL % (test code = NT%) 68.8 % 40-76 LYMPHOCYTE % (test code = LY%) 20.8 % 20.5-51.1 N MONOCYTE % (test code = MO%) 7.3 % 1.7-9.3 N EOSINOPHIL % (test code = EO%) 2.8 % 0.0-6.0 N BASOPHIL % (test code = BA%) 0.3 % 0.0-2.0 N NEUTROPHIL # (test code = NT#) 2.72 K/mm3 1.8-7.6 N LYMPHOCYTE # (test code = LY#) 0.8 K/mm3 0.6-3.0 N MONOCYTE # (test code = MO#) 0.3 K/mm3 0.2-1.5 N EOSINOPHIL # (test code = EO#) 0.1 K/mm3 0.0-0.4 N BASOPHIL # (test code = BA#) 0.0 K/mm3 0.0-0.2 N MANUAL DIFF REQUIRED (test code = NO DIFF/SCN CRITERIA MDIFF) COMPREHENSIVE METABOLIC [id number] 06:10:00 Test Item Value Reference Range Interpretation Comments SODIUM (test code = NA) 143 mmol/L 134-147 N POTASSIUM (test code = 4.0 mmol/L 3.4-5.0 N K) CHLORIDE (test code = 113 mmol/L 100-108 H CL) CARBON DIOXIDE (test 25 mmol/L 21-32 N code = CO2) ANION GAP (test code = 5.0 GAP calc 4.0-15.0 N GAP) GLUCOSE (test code = 85 MG/DL 70-110 N GLU) BLOOD UREA NITROGEN 22 MG/DL 7-18 H (test code = BUN) GLOMERULAR FILTRATION >=60 max estimate >60 RATE (test code = GFR) estGFR CREATININE (test code = 1.0 MG/DL 0.8-1.3 N CREAT) TOTAL PROTEIN (test code 5.5 G/DL 6.4-8.2 L = PROT) ALBUMIN (test code = 3.3 G/DL 3.4-5.0 L ALB) GLOBULIN (test code = 2.2 GM/dL GLOB) ALBUMIN/GLOBULIN RATIO 1.5 RATIO 1.2-2.2 N (test code = A/G) CALCIUM (test code = CA) 8.2 MG/DL 8.5-10.1 L BILIRUBIN TOTAL (test 0.70 MG/DL 0.2-1.2 N code = BILT) SGOT/AST (test code = 15 Unit/L 15-37 N AST) SGPT/ALT (test code = 27 Unit/L 12-78 N ALT) ALKALINE PHOSPHATASE 44 Unit/L 50-136 L TOTAL (test code = ALKP) CBC W/AUTO [id number] 05:52:00 Test Item Value Reference Range Interpretation Comments WHITE BLOOD CELL (test code = 3.9 K/mm3 3.5-11.0 N WBC) RED BLOOD CELL (test code = RBC) 3.72 M/mm3 4.70-6.10 L HEMOGLOBIN (test code = HGB) 10.4 G/DL 12.3-15.9 L HEMATOCRIT (test code = HCT) 34.5 % 35.8-46.7 L MEAN CELL VOLUME (test code = 92.7 Fl 86.3-98.9 N MCV) MEAN CELL HGB (test code = MCH) 28.0 pg 28.9-34.4 L MEAN CELL HGB CONCETRATION (test 30.1 G/DL 32.1-34.5 L code = MCHC) RED CELL DISTRIBUTION WIDTH (test 15.3 SD 11.5-14.5 H code = RDW) PLATELET COUNT (test code = PLT) 156.0 K/mm3 150-450 N MEAN PLATELET VOLUME (test code = 10.50 fL 7.0-9.6 H MPV) NEUTROPHIL % (test code = NT%) 56.1 % 40-76 N LYMPHOCYTE % (test code = LY%) 32.5 % 20.5-51.1 N MONOCYTE % (test code = MO%) 9.0 % 1.7-9.3 N EOSINOPHIL % (test code = EO%) 2.1 % 0.0-6.0 N BASOPHIL % (test code = BA%) 0.3 % 0.0-2.0 N NEUTROPHIL # (test code = NT#) 2.18 K/mm3 1.8-7.6 N LYMPHOCYTE # (test code = LY#) 1.3 K/mm3 0.6-3.0 N MONOCYTE # (test code = MO#) 0.4 K/mm3 0.2-1.5 N EOSINOPHIL # (test code = EO#) 0.1 K/mm3 0.0-0.4 N BASOPHIL # (test code = BA#) 0.0 K/mm3 0.0-0.2 N MANUAL DIFF REQUIRED (test code = NO DIFF/SCN CRITERIA MDIFF) - XR ABDOMEN 1 [id number] 01:30:00 Name: DORA JOSEPH [facility] : 1970 Age/S: 49 / M [address] [facility] [place] Unit #: [id number] Loc: [place] [address] Phys: 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 Location: H 12 History: NG Tube Placement Verification Findings: A supine view of the abdomen demonstrates gaseous distention of the colon. A nasogastric tube is in place, the tip is in the stomach. No organomegaly, abnormal masses or calcifications are seen. No pneumatosis or free air is present. Impression: Satisfactory nasogastric tube placement. at 0130 Reported and signed by: Teo Do M.D. CC: Mark Perea MD; Ted Coelman HUMAN GEOGRAPHY INSTRUCTOR PAGE 1 Signed Report Name: DORA JOSEPH [facility] : 1970 Age/S:49 / M [address] [place] Unit #: [id number] Loc: [place] [address] Phys: Ted Coleman NP Acct: [id number] Dis Date: Status: ADM IN PHONE #: [phone] Exam Date: 01/06/2020 010 FAX #: Reason: NG Tube Placement Verification EXAMS: CPT: [id number] XR ABDOMEN 1 V 43218 Fluoro Time: DAP (Gy m2): Air Kerma (mGy): <Continued> Technologist: RT Tatum(R) [facility] [place] [place] Date/Time: 01/06/2020 (013) [email or web address] Orig Print D/T: S: 01/06/2020 (0133) PAGE 2 Signed Report- CT ABD PELVIS W/O [id number] 19:42:00 Gerry: St: REG -- Name: DORA JOSEPH [facility] : 1970 Age/S: 49/M [address] [facility] Unit:[id number] Loc: [place], [place] Phys: [place] [address] Acct: [id number] Dis Date: Status: REG ER PHONE #: [phone] Exam Date: 12/13/20191924 FAX #: [phone] Reason: pain EXAMS: CPT CODE: [id number] CT ABD PELVIS W/O CONT 39938 Examination: CT scan abdomen and pelvis without contrast. Location code: H 60. TECHNIQUE: Multiple axial images of the abdomen and pelvis were obtained without intravenous administration of contrast with sagittal and coronal reconstructions. CT exam wa s performed using automated dose reduction. COMPARISON: 02/28/2013. Discussion: Clinical history is significant for abdominal pain. No radiopaque renal calculi identified. There is no evidence for hydronephrosis. No radiopaque gallstones are identified. Given the lack of intravenous contrast and limitations of the study secondary to lack of intravenous contrast the solid organs are grossly unremarkable. No enlarged retroperitoneal, pelvic or inguinal adenopathy is identified. Bladder is distended andis grossly unremarkable. Prostatic calcifications are noted. There [...] prior study dated 02/28/2013. No definite obstructive lesion is identified given the stability of this finding is likely as a chronic finding. 2. Otherwise unremarkable unenhanced CT scan of abdomen and pelvis. at 1942 Reported and signed by: SHANEL EDWARDS CC: Technologist: SUJATA ALMANZAR Trnscrd Dt/Tm: 12/13/2019 (1941) [email or web address] Orig Parvin nt D/T: S: 12/13/2019 (5 PAGE 1 Signed ReportBASIC METABOLIC [id number] 18:49:00 Test Item Value Reference Range Interpretation Comments SODIUM (test code = NA) 142 mmol/l 134.0-147.0 N POTASSIUM (test code = K) 4.0 mmol/L 3.6-5.2 N CHLORIDE (test code = CL) 106 mmol/l 98.0-107.0 N CARBON DIOXIDE (test code = CO2) 26.6 mmol/l 21.0-33.0 N ANION GAP (test code = GAP) 13.4 0-20 N GLUCOSE (test code = GLU) 91 mg/dl 70.0-110.0 N BLOOD UREA NITROGEN (test code = 24 mg/dl 7.0-18.0 H BUN) CREATININE (test code = CREAT) 1.21 mg/dL 0.60-1.30 N GFR NON BLACK (test code = 68 mL/min 95-105 L GFRNONBLACK) GFR BLACK (test code = GFRBLACK) 82 mL/min 115-127 L CALCIUM (test code = CA) 8.6 mg/dl 8.0-10.5 N [id number] 18:49:00 Test Item Value Reference Range Interpretation Comments LIPASE (test code = LIP) 97 Units/L 65.0-230.0 N CBC W/AUTO [id number] 18:38:00 Test Item Value Reference Range Interpretation Comments WHITE BLOOD CELL (test code = 6.1 K/mm3 4.5-11.0 N WBC) RED BLOOD CELL (test code = 3.48 M/mm3 4.40-5.90 L RBC) HEMOGLOBIN (test code = HGB) 10.1 gm/dL 13.0-17.0 L HEMATOCRIT (test code = HCT) 32.2 % 36.0-48.0 L MEAN CELL VOLUME (test code = 92.5 UM3 80.0-94.0 N MCV) MEAN CELL HGB (test code = MCH) 29.0 UUG 25.5-32.5 N MEAN CELL HGB CONCETRATION 31.4 gm/dL 29.0-35.5 N (test code = MCHC) RED CELL DISTRIBUTION WIDTH 15.3 % 11.5-15.0 H (test code = RDW) RED CELL DISTRIBUTION WIDTH SD 51.8 fL 34.8-50.2 H (test code = RDW-SD) PLATELET COUNT (test code = 152 K/mm3 150-400 N PLT) MEAN PLATELET VOLUME (test code 9.9 fl 7.4-10.4 N = MPV) NEUTROPHIL % (test code = NT%) 57.0 % 49.0-76.0 N IMMATURE GRANULOCYTE % (test 0.2 % 0.0-0.4 N code = IG%) LYMPHOCYTE % (test code = LY%) 30.6 % 23.0-38.0 N MONOCYTE % (test code = MO%) 10.4 % 1.0-10.0 H EOSINOPHIL % (test code = EO%) 1.3 % 1.0-5.0 N BASOPHIL % (test code = BA%) 0.5 % 0.0-1.0 N NEUTROPHIL # (test code = NT#) 3.5 K/mm3 2.4-6.3 N IMMATURE GRANULOCYTE # (test 0.01 x10 3/uL 0.00-0.07 N code = IG#) LYMPHOCYTE # (test code = LY#) 1.9 K/mm3 1.2-4.0 N MONOCYTE # (test code = MO#) 0.6 K/mm3 0.0-0.6 N EOSINOPHIL # (test code = EO#) 0.1 K/MM3 0.0-0.7 N BASOPHIL # (test code = BA#) 0.0 K/mm3 0.0-0.2 N - XR CHEST 1 [id number] 18:36:00 Gerry: St: PRE -- Name: DORA JOSEPH [facility] : 1970 Age/S: 49/M [address] [facility] Unit #: [id number] Loc: [place], [place] Phys: [place] [address] Acct: [id number] Dis Date: Status: PRE ER PHONE #: [phone] Exam Date: 12/13/2019 1822 FAX #: [phone] Reason: SOB EXAMS: CPT CODE: [id number] XR CHEST 1 V 74954 Examination: One view chest x-ray Location code: H60 Comparison: None Discussion: Clinical history is remarkable for shortness of breath and weakness. Heart isnormal in size. Lungs are clear of consolidating infiltrates. No effusions identified. There is significant distention of the colon. Impression: 1. Normal one view chest x-ray. 2. Colonic distention. at 1836 Reported and signed by: SHANEL EDWARDS CC: Technologist: AMBER GENTILE [facility] Date/Time/By: 12/13/2019 (1835) : By: [email or web address] PAGE 1 Signed Report Gerry: EM St: PRE ----- Name: DORA JOSEPH [facility] : 1970 Age/S: 49/M [address] [facility] [facility] Unit #: [id number] Loc: [place], [place]: [place] [address] Acct: [id number] Dis Date: Status: PRE ER PHONE #: [phone] Exam Date: 12/13/20191821 FAX #: [phone] Reason: SOB EXAMS: CPT CODE: [id number] XR CHEST 1 V 79573 (Continued) Orig Print D/T: S: 12/13/2019 (183) PAGE 2 [facility] & AUTO [id number] 08:02:00 Test Item Value Reference Range Interpretation Comments WHITE BLOOD CELL COUNT (BEAKER) 4.3 K/ L 3.5-10.5 (test code = 775) RED BLOOD CELL COUNT (BEAKER) 3.06 M/ L 4.63-6.08 L (test code = 761) HEMOGLOBIN (BEAKER) (test code = 8.8 GM/DL 13.7-17.5 L 410) HEMATOCRIT (BEAKER) (test code = 28.1 % 40.1-51.0 L 411) MEAN CORPUSCULAR VOLUME (BEAKER) 91.8 fL 79.0-92.2 (test code = 753) MEAN CORPUSCULAR HEMOGLOBIN 28.8 pg 25.7-32.2 (BEAKER) (test code = 751) MEAN CORPUSCULAR HEMOGLOBIN CONC 31.3 GM/DL 32.3-36.5 L (BEAKER) (test code = 752) RED CELL DISTRIBUTION WIDTH 13.3 % 11.6-14.4 (BEAKER) (test code = 412) PLATELET COUNT (BEAKER) (test 357 K/CU MM 150-450 code = 756) MEAN PLATELET VOLUME (BEAKER) 10.0 fL 9.4-12.4 (test code = 754) NUCLEATED RED BLOOD CELLS 0 /100 WBC 0-0 (BEAKER) (test code = 413) (CELLAVISION MANUAL DIFF)2019-04-04 08:02:00 Test Item Value Reference Range Interpretation Comments NEUTROPHILS - REL 79 % (CELLAVISION)(BEAKER) (test code = 2816) LYMPHOCYTES - REL 15 % (CELLAVISION)(BEAKER) (test code = 2817) MONOCYTES - REL 3 % (CELLAVISION)(BEAKER) (test code = 2818) EOSINOPHILS - REL 3 % (CELLAVISION)(BEAKER) (test code = 2819) NEUTROPHILS - ABS 3.40 K/ul 1.78-5.38 (CELLAVISION)(BEAKER) (test code = 2830) LYMPHOCYTES - ABS 0.65 K/ul 1.32-3.57 L (CELLAVISION)(BEAKER) (test code = 2831) MONOCYTES - ABS 0.13 K/uL 0.30-0.82 L (CELLAVISION)(BEAKER) (test code = 2832) EOSINOPHILS - ABS 0.13 K/uL 0.04-0.54 (CELLAVISION)(BEAKER) (test code = 2834) TOTAL COUNTED (BEAKER) (test code = 100 1351) WBC MORPHOLOGY (BEAKER) (test code Normal = 487) PLT MORPHOLOGY (BEAKER) (test code Normal = 486) ANISOCYTOSIS (BEAKER) (test code = 1+ few 961) MICROCYTES (BEAKER) (test code = 1+ few 965) ARTIFACT (CELLAVISION)(BEAKER) Present (test code = 3432) PLATELET CONCENTRATION Adequate (CELLAVISION)(BEAKER) (test code = 3438) Received comment: User comments: Slide comments:BASIC METABOLIC [id number] 07:34:00 Test Item Value Reference Range Interpretation Comments SODIUM (BEAKER) 141 meq/L 136-145 (test code = 381) POTASSIUM (BEAKER) 2.8 meq/L 3.5-5.1 L (test code = 379) CHLORIDE (BEAKER) 105 meq/L 98-107 (test code = 382) CO2 (BEAKER) (test 25 meq/L 22-29 code = 355) BLOOD UREA NITROGEN 5 mg/dL 7-21 L (BEAKER) (test code = 354) CREATININE (BEAKER) 0.73 mg/dL 0.57-1.25 (test code = 358) GLUCOSE RANDOM 77 mg/dL 70-105 (BEAKER) (test code = 652) CALCIUM (BEAKER) 7.6 mg/dL 8.4-10.2 L (test code = 697) EGFR (BEAKER) (test 114 mL/min/1.73 ESTIM ATED GFR IS code = 1092) sq m NOT ACCURATE CREATININE CLEARANCE IN PREDICTING GLOMERULAR FILTRATION RATE . ESTIMATED GFR I S NOT APPLICABLE FOR DIALYSIS PATIEN TS. [id number] 07:26:00 Test Item Value Reference Range Interpretation Comments PHOSPHORUS (BEAKER) (test code = 3.1 mg/dL 2.3-4.7 604) [id number] 07:26:00 Test Item Value Reference Range Interpretation Comments MAGNESIUM (BEAKER) (test code = 1.6 mg/dL 1.6-2.6 627) RAD, ABDOMEN/KUB, 1 VIEW [id number] 07:04:00Reason for exam:->ileusFINAL REPORT Abdomen , one [...] large bowel, most suggestive of ileus. Signed: iDony Gallegos MDReport Verified Date/Time: 04/03/2019 07:04:46 Reading Location: [facility] C013X Ortho Consult Reading Room BASIC METABOLIC [id number] 06:47:00 Test Item Value Reference Range Interpretation Comments SODIUM (BEAKER) 140 meq/L 136-145 (test code = 381) POTASSIUM (BEAKER) 2.9 meq/L 3.5-5.1 L (test code = 379) CHLORIDE (BEAKER) 106 meq/L 98-107 (test code = 382) CO2 (BEAKER) (test 25 meq/L 22-29 code = 355) BLOOD UREA NITROGEN 7 mg/dL 7-21 (BEAKER) (test code = 354) CREATININE (BEAKER) 0.72 mg/dL 0.57-1.25 (test code = 358) GLUCOSE RANDOM 72 mg/dL 70-105 (BEAKER) (test code = 652) CALCIUM (BEAKER) 7.7 mg/dL 8.4-10.2 L (test code = 697) EGFR (BEAKER) (test 116 mL/min/1.73 ESTIM ATED GFR IS code = 1092) sq m NOT ACCURATE CREATININE CLEARANCE IN PREDICTING GLOMERULAR FILTRATION RATE . ESTIMATED GFR I S NOT APPLICABLE FOR DIALYSIS PATIEN TS. CBC (HEMOGRAM ONLY)2019-04-03 05:20:00 Test Item Value Reference Range Interpretation Comments WHITE BLOOD CELL COUNT (BEAKER) 4.4 K/ L 3.5-10.5 (test code = 775) RED BLOOD CELL COUNT (BEAKER) 2.77 M/ L 4.63-6.08 L (test code = 761) HEMOGLOBIN (BEAKER) (test code = 8.3 GM/DL 13.7-17.5 L 410) HEMATOCRIT (BEAKER) (test code = 25.5 % 40.1-51.0 L 411) MEAN CORPUSCULAR VOLUME (BEAKER) 92.1 fL 79.0-92.2 (test code = 753) MEAN CORPUSCULAR HEMOGLOBIN 30.0 pg 25.7-32.2 (BEAKER) (test code = 751) MEAN CORPUSCULAR HEMOGLOBIN CONC 32.5 GM/DL 32.3-36.5 (BEAKER) (test code = 752) RED CELL DISTRIBUTION WIDTH 13.2 % 11.6-14.4 (BEAKER) (test code = 412) PLATELET COUNT (BEAKER) (test 326 K/CU MM 150-450 code = 756) MEAN PLATELET VOLUME (BEAKER) 9.7 fL 9.4-12.4 (test code = 754) NUCLEATED RED BLOOD CELLS 0 /100 WBC 0-0 (BEAKER) (test code = 413) URINALYSIS WITH MICROSCOPIC IF [id number] 22:01:00 Test Item Value Reference Range Interpretation Comments COLOR (BEAKER) (test code = 470) Light Yellow CLARITY (BEAKER) (test code = Clear 469) SPECIFIC GRAVITY UA (BEAKER) 1.018 1.001-1.035 (test code = 468) PH UA (BEAKER) (test code = 467) 5.5 5.0-8.0 PROTEIN UA (BEAKER) (test code = Negative Negative 464) GLUCOSE UA (BEAKER) (test code = Negative Negative 365) KETONES UA (BEAKER) (test code = 100 mg/dL Negative A 371) BILIRUBIN UA (BEAKER) (test code Negative Negative = 462) BLOOD UA (BEAKER) (test code = Moderate Negative A 461) NITRITE UA (BEAKER) (test code = Negative Negative 465) LEUKOCYTE ESTERASE UA (BEAKER) Negative Negative (test code = 466) UROBILINOGEN UA (BEAKER) (test 0.2 mg/dL 0.2-1.0 code = 463) SOURCE(BEAKER) (test code = 2795) URINALYSIS [id number] 22:01:00 Test Item Value Reference Range Interpretation Comments RBC UA (BEAKER) (test code = 519) 18 /HPF WBC UA (BEAKER) (test code = 520) 1 /HPF CALCIUM OXALATE CRYSTALS (BEAKER) Occasional (test code = 518) [id number] 05:49:00 Test Item Value Reference Range Interpretation Comments PHOSPHORUS (BEAKER) (test code = 2.5 mg/dL 2.3-4.7 604) [id number] 05:49:00 Test Item Value Reference Range Interpretation Comments MAGNESIUM (BEAKER) (test code = 1.7 mg/dL 1.6-2.6 627) BASIC METABOLIC [id number] 05:49:00 Test Item Value Reference Range Interpretation Comments SODIUM (BEAKER) 137 meq/L 136-145 (test code = 381) POTASSIUM (BEAKER) 3.3 meq/L 3.5-5.1 L (test code = 379) CHLORIDE (BEAKER) 101 meq/L 98-107 (test code = 382) CO2 (BEAKER) (test 24 meq/L 22-29 code = 355) BLOOD UREA NITROGEN 6 mg/dL 7-21 L (BEAKER) (test code = 354) CREATININE (BEAKER) 0.72 mg/dL 0.57-1.25 (test code = 358) GLUCOSE RANDOM 82 mg/dL 70-105 (BEAKER) (test code = 652) CALCIUM (BEAKER) 8.0 mg/dL 8.4-10.2 L (test code = 697) EGFR (BEAKER) (test 116 mL/min/1.73 ESTIM ATED GFR IS code = 1092) sq m NOT ACCURATE CREATININE CLEARANCE IN PREDICTING GLOMERULAR FILTRATION RATE . ESTIMATED GFR I S NOT APPLICABLE FOR DIALYSIS PATIEN TS. CBC (HEMOGRAM ONLY)2019-04-01 05:17:00 Test Item Value Reference Range Interpretation Comments WHITE BLOOD CELL COUNT (BEAKER) 5.6 K/ L 3.5-10.5 (test code = 775) RED BLOOD CELL COUNT (BEAKER) 3.28 M/ L 4.63-6.08 L (test code = 761) HEMOGLOBIN (BEAKER) (test code = 9.7 GM/DL 13.7-17.5 L 410) HEMATOCRIT (BEAKER) (test code = 29.9 % 40.1-51.0 L 411) MEAN CORPUSCULAR VOLUME (BEAKER) 91.2 fL 79.0-92.2 (test code = 753) MEAN CORPUSCULAR HEMOGLOBIN 29.6 pg 25.7-32.2 (BEAKER) (test code = 751) MEAN CORPUSCULAR HEMOGLOBIN CONC 32.4 GM/DL 32.3-36.5 (BEAKER) (test code = 752) RED CELL DISTRIBUTION WIDTH 12.9 % 11.6-14.4 (BEAKER) (test code = 412) PLATELET COUNT (BEAKER) (test 374 K/CU MM 150-450 code = 756) MEAN PLATELET VOLUME (BEAKER) 9.8 fL 9.4-12.4 (test code = 754) NUCLEATED RED BLOOD CELLS 0 /100 WBC 0-0 (BEAKER) (test code = 413) BASIC METABOLIC [id number] 06:19:00 Test Item Value Reference Range Interpretation Comments SODIUM (BEAKER) 138 meq/L 136-145 (test code = 381) POTASSIUM (BEAKER) 3.5 meq/L 3.5-5.1 Specimen slightly (test code = 379) hemolyzed CHLORIDE (BEAKER) 103 meq/L 98-107 (test code = 382) CO2 (BEAKER) (test 24 meq/L 22-29 code = 355) BLOOD UREA NITROGEN 7 mg/dL 7-21 (BEAKER) (test code = 354) CREATININE (BEAKER) 0.73 mg/dL 0.57-1.25 Specimen slightly (test code = 358) hemolyzed GLUCOSE RANDOM 101 mg/dL 70-105 (BEAKER) (test code = 652) CALCIUM (BEAKER) 7.9 mg/dL 8.4-10.2 L (test code = 697) EGFR (BEAKER) (test 114 mL/min/1.73 ESTIM ATED GFR IS code = 1092) sq m NOT ACCURATE CREATININE CLEARANCE IN PREDICTING GLOMERULAR FILTRATION RATE . ESTIMATED GFR I S NOT APPLICABLE FOR DIALYSIS PATIEN TS. [id number] 06:10:00 Test Item Value Reference Range Interpretation Comments MAGNESIUM (BEAKER) 1.8 mg/dL 1.6-2.6 Specimen slightly (test code = 627) hemolyzed [id number] 06:10:00 Test Item Value Reference Range Interpretation Comments PHOSPHORUS (BEAKER) 2.5 mg/dL 2.3-4.7 Specimen slightly (test code = 604) hemolyzed CBC (HEMOGRAM ONLY)2019-03-31 05:55:00 Test Item Value Reference Range Interpretation Comments WHITE BLOOD CELL COUNT (BEAKER) 6.9 K/ L 3.5-10.5 (test code = 775) RED BLOOD CELL COUNT (BEAKER) 3.19 M/ L 4.63-6.08 L (test code = 761) HEMOGLOBIN (BEAKER) (test code = 9.5 GM/DL 13.7-17.5 L 410) HEMATOCRIT (BEAKER) (test code = 29.1 % 40.1-51.0 L 411) MEAN CORPUSCULAR VOLUME (BEAKER) 91.2 fL 79.0-92.2 (test code = 753) MEAN CORPUSCULAR HEMOGLOBIN 29.8 pg 25.7-32.2 (BEAKER) (test code = 751) MEAN CORPUSCULAR HEMOGLOBIN CONC 32.6 GM/DL 32.3-36.5 (BEAKER) (test code = 752) RED CELL DISTRIBUTION WIDTH 13.2 % 11.6-14.4 (BEAKER) (test code = 412) PLATELET COUNT (BEAKER) (test 397 K/CU MM 150-450 code = 756) MEAN PLATELET VOLUME (BEAKER) 9.7 fL 9.4-12.4 (test code = 754) NUCLEATED RED BLOOD CELLS 0 /100 WBC 0-0 (BEAKER) (test code = 413) CBC (HEMOGRAM ONLY)2019-03-30 05:17:00 Test Item Value Reference Range Interpretation Comments WHITE BLOOD CELL COUNT (BEAKER) 6.6 K/ L 3.5-10.5 (test code = 775) RED BLOOD CELL COUNT (BEAKER) 3.24 M/ L 4.63-6.08 L (test code = 761) HEMOGLOBIN (BEAKER) (test code = 9.5 GM/DL 13.7-17.5 L 410) HEMATOCRIT (BEAKER) (test code = 29.7 % 40.1-51.0 L 411) MEAN CORPUSCULAR VOLUME (BEAKER) 91.7 fL 79.0-92.2 (test code = 753) MEAN CORPUSCULAR HEMOGLOBIN 29.3 pg 25.7-32.2 (BEAKER) (test code = 751) MEAN CORPUSCULAR HEMOGLOBIN CONC 32.0 GM/DL 32.3-36.5 L (BEAKER) (test code = 752) RED CELL DISTRIBUTION WIDTH 12.8 % 11.6-14.4 (BEAKER) (test code = 412) PLATELET COUNT (BEAKER) (test 342 K/CU MM 150-450 code = 756) MEAN PLATELET VOLUME (BEAKER) 9.9 fL 9.4-12.4 (test code = 754) NUCLEATED RED BLOOD CELLS 0 /100 WBC 0-0 (BEAKER) (test code = 413) BASIC METABOLIC [id number] 04:57:00 Test Item Value Reference Range Interpretation Comments SODIUM (BEAKER) 134 meq/L 136-145 L (test code = 381) POTASSIUM (BEAKER) 3.6 meq/L 3.5-5.1 (test code = 379) CHLORIDE (BEAKER) 100 meq/L 98-107 (test code = 382) CO2 (BEAKER) (test 22 meq/L 22-29 code = 355) BLOOD UREA NITROGEN 7 mg/dL 7-21 (BEAKER) (test code = 354) CREATININE (BEAKER) 0.74 mg/dL 0.57-1.25 (test code = 358) GLUCOSE RANDOM 72 mg/dL 70-105 (BEAKER) (test code = 652) CALCIUM (BEAKER) 7.8 mg/dL 8.4-10.2 L (test code = 697) EGFR (BEAKER) (test 112 mL/min/1.73 ESTIM ATED GFR IS code = 1092) sq m NOT ACCURATE CREATININE CLEARANCE IN PREDICTING GLOMERULAR FILTRATION RATE . ESTIMATED GFR I S NOT APPLICABLE FOR DIALYSIS PATIEN TS. [id number] 04:55:00 Test Item Value Reference Range Interpretation Comments PHOSPHORUS (BEAKER) (test code = 2.6 mg/dL 2.3-4.7 604) [id number] 04:55:00 Test Item Value Reference Range Interpretation Comments MAGNESIUM (BEAKER) (test code = 1.8 mg/dL 1.6-2.6 627) CT, [id number] 14:16:00FINAL REPORT TECHNIQUE: CT of the abdomen [...] splenomegaly.PANCREAS: No focal masses or ductal dilatation. ADRENALS: Noadrenal nodules.KIDNEYS/URETERS: No hydronephrosis, stones, or solid mass lesions.PELVIC ORGANS/BLADDER: The bladder is decompressed by Zepeda catheter. Trace air in the bladder lumen, likely from catheterization. Prostate and seminal vesicles are grossly unremarkable. PERITONEUM/RETROPERITONEUM: Smallamount of free air and free fluid. Stranding [...] site likely represents postsurgical change. Signed: Marsha Pope MDReport Verified Date/Time: 03/29/2019 14:16:01Reading Location: [facility] C013Y CT Body Reading Room , ABDOMEN/KUB, 1 VIEW [id number] 10:23:00Reason for exam:->evaluate ileusFINAL REPORT Technique: Supine [...] Urbinaeport Verified Date/Time: 03/29/2019 10:23:29 Reading Location: [facility] Reading Room CBC (HEMOGRAM ONLY)2019-03-29 08:10:00 Test Item Value Reference Range Interpretation Comments WHITE BLOOD CELL COUNT (BEAKER) 6.9 K/ L 3.5-10.5 (test code = 775) RED BLOOD CELL COUNT (BEAKER) 3.21 M/ L 4.63-6.08 L (test code = 761) HEMOGLOBIN (BEAKER) (test code = 9.4 GM/DL 13.7-17.5 L 410) HEMATOCRIT (BEAKER) (test code = 29.7 % 40.1-51.0 L 411) MEAN CORPUSCULAR VOLUME (BEAKER) 92.5 fL 79.0-92.2 H (test code = 753) MEAN CORPUSCULAR HEMOGLOBIN 29.3 pg 25.7-32.2 (BEAKER) (test code = 751) MEAN CORPUSCULAR HEMOGLOBIN CONC 31.6 GM/DL 32.3-36.5 L (BEAKER) (test code = 752) RED CELL DISTRIBUTION WIDTH 13.0 % 11.6-14.4 (BEAKER) (test code = 412) PLATELET COUNT (BEAKER) (test 312 K/CU MM 150-450 code = 756) MEAN PLATELET VOLUME (BEAKER) 9.4 fL 9.4-12.4 (test code = 754) NUCLEATED RED BLOOD CELLS 0 /100 WBC 0-0 (BEAKER) (test code = 413) [id number] 06:20:00 Test Item Value Reference Range Interpretation Comments PHOSPHORUS (BEAKER) (test code = 2.6 mg/dL 2.3-4.7 604) [id number] 06:20:00 Test Item Value Reference Range Interpretation Comments MAGNESIUM (BEAKER) (test code = 2.0 mg/dL 1.6-2.6 627) BASIC METABOLIC [id number] 06:20:00 Test Item Value Reference Range Interpretation Comments SODIUM (BEAKER) 135 meq/L 136-145 L (test code = 381) POTASSIUM (BEAKER) 3.6 meq/L 3.5-5.1 (test code = 379) CHLORIDE (BEAKER) 99 meq/L 98-107 (test code = 382) CO2 (BEAKER) (test 24 meq/L 22-29 code = 355) BLOOD UREA NITROGEN 9 mg/dL 7-21 (BEAKER) (test code = 354) CREATININE (BEAKER) 0.78 mg/dL 0.57-1.25 (test code = 358) GLUCOSE RANDOM 71 mg/dL 70-105 (BEAKER) (test code = 652) CALCIUM (BEAKER) 8.0 mg/dL 8.4-10.2 L (test code = 697) EGFR (BEAKER) (test 106 mL/min/1.73 ESTIM ATED GFR IS code = 1092) sq m NOT ACCURATE CREATININE CLEARANCE IN PREDICTING GLOMERULAR FILTRATION RATE . ESTIMATED GFR I S NOT APPLICABLE FOR DIALYSIS PATIEN TS. RAD, ABDOMEN SERIES W/ UPRIGHT PA [id number] 22:18:00Reason for exam:- >eval ileusFINAL REPORT CLINICAL HISTORY: eval ileus EXAMINATION: RAD, ABDOMEN SERIES W/ UPRIGHT PA CHEST COMPARISON: Plain radiograph the abdomen, same day. FINDINGS: Chest: Normal cardiomediastinal silhouette. No pleural effusion. No focal parenchymal process. No pneumothorax or pneumoperitoneum. No acute osseous abnormalities. Small volume free air underneath the right and the diaphragm.Abdomen: Supine and left lateral decubitus view demonstrates small volume pneumoperitoneum which maybe related to recent abdominal surgery. Again seen [...] with CT abdomen pelvis. Signed: Jian Bethea Verified Date/Time: 03/28/2019 22:18:50 RAD, ABDOMEN/KUB, 1 VIEW [id number] 11:23:00Reason for exam:->abdominal distensionShould this be performed [...] of ileus or obstruction. No focal transition point is identified. Signed: Candido Cruz Verified Date/Time: 03/28/2019 11:23:34 Reading Location: [facility] Radiology Reading Room TISSUE [id number] 09:00:00Surgical Pathology Report Case: [id number] Authorizing Provider: Graciela Garrison MD Collected: 03/25/2019 1133 Ordering Location: [facility] Received: 03/25/2019 1527 SERVICES Pathologist: Jordan Celaya MD Specimens: A) - Ileostomy, end ileostomy B) - Appendix A. SMALL BOWEL, END ILEOSTOMY, TAKEDOWN: - ENTERIC WALL WITH ULCERATION, TRANSMURAL ACUTE INFLAMMATION, NECROSIS AND FOCAL INFLAMMATORY CHANGES CONSISTENT WITH DIVERSION COLITIS - VIABLE MARGINS - NEGATIVE FOR DYSPLASIA OR MALIGNANCYB. APPENDIX, APPENDECTOMY: - APPENDIX WITH NO SIGNIFICANT DIAGNOSTIC ABNORMALITY - NEGATIVE FOR MALIGNANCY Signing Pathologist Direct Phone Line: [phone] signed by Chiara Celaya MD on 03/28/2019 at 9:00 [id number] and postop diagnosis: ileostomy statusA. End ileostomy; B. Appendix A. Received fresh labeled with the patient's name, accession number and "end ileostomy" is an unoriented segment of small bowel measuring 4 cm in length and 5 cm in diameter with a minimal amount of attached mesentery. Also received is a second segment of unoriented small bowel measuring3 cm in length and ranging 1.7-5.5 cm in diameter which has a small amount of mesentery with a focalarea of necrosis and hemorrhage. Each segment of small bowel is opened to reveal focal areas of submucosal hemorrhage. In the area of dilatation of the second mentioned segment of small bowel are focalareas of mucosal hemorrhage. Skin is not grossly identified on either segment. The mucosa is slightly edematous. No gross lesions are identified. Lymph nodes are not identified in the mesentery. Motor Vehicle Clerk sections are submitted. Section code: A, outside dealer sales representative section of each end of first mentioned segment of small bowel; A2, outside dealer sales representative of first mentioned segment of small bowel mucosa; A3, area of hemorrhagic mesentery of second mentioned segment of mucosa; A4, outside dealer sales representative of hemorrhagicmucosa at open end of second portion of small bowel; A5, outside dealer sales representative of stapled margin from second mentioned segment of small bowel, en face. B. Received fresh labeled with the patient's name, access ion number and "appendix" is an intact appendix measuring 3.5 cm in length and 0.6 cm in diameter which has a moderate amount of attached mesoappendix. The serosa is pink and smooth. The proximal end is cauterized. The specimen is serially sectioned to reveal a abad, smooth mucosa. No fecaliths are present. The wall thickness is 0.2 cm. No gross lesions are identified. Motor Vehicle Clerk sections are submitted. Section code: B1, proximal margin en face and tip; B2, outside dealer sales representative cross section. CG/pl Performed.[id number] 06:23:00 Test Item Value Reference Range Interpretation Comments PHOSPHORUS (BEAKER) (test code = 2.7 mg/dL 2.3-4.7 604) [id number] 06:23:00 Test Item Value Reference Range Interpretation Comments MAGNESIUM (BEAKER) (test code = 1.9 mg/dL 1.6-2.6 627) BASIC METABOLIC [id number] 06:23:00 Test Item Value Reference Range Interpretation Comments SODIUM (BEAKER) 136 meq/L 136-145 (test code = 381) POTASSIUM (BEAKER) 3.4 meq/L 3.5-5.1 L (test code = 379) CHLORIDE (BEAKER) 99 meq/L 98-107 (test code = 382) CO2 (BEAKER) (test 27 meq/L 22-29 code = 355) BLOOD UREA NITROGEN 9 mg/dL 7-21 (BEAKER) (test code = 354) CREATININE (BEAKER) 0.85 mg/dL 0.57-1.25 (test code = 358) GLUCOSE RANDOM 80 mg/dL 70-105 (BEAKER) (test code = 652) CALCIUM (BEAKER) 8.4 mg/dL 8.4-10.2 (test code = 697) EGFR (BEAKER) (test 96 mL/min/1.73 ESTIMA DAIN GFR IS code = 1092) sq m NOT ACCURATE CREATININE CLEARANCE IN PREDICTING GLOMERULAR FILTRATION RATE . ESTIMATED GFR I S NOT APPLICABLE FOR DIALYSIS PATIEN TS. [id number] 08:20:00 Test Item Value Reference Range Interpretation Comments PHOSPHORUS (BEAKER) (test code = 2.6 mg/dL 2.3-4.7 604) [id number] 08:20:00 Test Item Value Reference Range Interpretation Comments MAGNESIUM (BEAKER) (test code = 1.8 mg/dL 1.6-2.6 627) BASIC METABOLIC [id number] 08:20:00 Test Item Value Reference Range Interpretation Comments SODIUM (BEAKER) 135 meq/L 136-145 L (test code = 381) POTASSIUM (BEAKER) 3.8 meq/L 3.5-5.1 (test code = 379) CHLORIDE (BEAKER) 101 meq/L 98-107 (test code = 382) CO2 (BEAKER) (test 28 meq/L 22-29 code = 355) BLOOD UREA NITROGEN 12 mg/dL 7-21 (BEAKER) (test code = 354) CREATININE (BEAKER) 0.89 mg/dL 0.57-1.25 (test code = 358) GLUCOSE RANDOM 87 mg/dL 70-105 (BEAKER) (test code = 652) CALCIUM (BEAKER) 8.1 mg/dL 8.4-10.2 L (test code = 697) EGFR (BEAKER) (test 91 mL/min/1.73 ESTIMA DAIN GFR IS code = 1092) sq m NOT ACCURATE CREATININE CLEARANCE IN PREDICTING GLOMERULAR FILTRATION RATE . ESTIMATED GFR I S NOT APPLICABLE FOR DIALYSIS PATIEN TS. [id number] 06:06:00 Test Item Value Reference Range Interpretation Comments PHOSPHORUS (BEAKER) (test code = 4.1 mg/dL 2.3-4.7 604) [id number] 06:06:00 Test Item Value Reference Range Interpretation Comments MAGNESIUM (BEAKER) (test code = 1.8 mg/dL 1.6-2.6 627) BASIC METABOLIC [id number] 06:06:00 Test Item Value Reference Range Interpretation Comments SODIUM (BEAKER) 136 meq/L 136-145 (test code = 381) POTASSIUM (BEAKER) 4.5 meq/L 3.5-5.1 (test code = 379) CHLORIDE (BEAKER) 106 meq/L 98-107 (test code = 382) CO2 (BEAKER) (test 25 meq/L 22-29 code = 355) BLOOD UREA NITROGEN 16 mg/dL 7-21 (BEAKER) (test code = 354) CREATININE (BEAKER) 1.04 mg/dL 0.57-1.25 (test code = 358) GLUCOSE RANDOM 108 mg/dL 70-105 H (BEAKER) (test code = 652) CALCIUM (BEAKER) 8.3 mg/dL 8.4-10.2 L (test code = 697) EGFR (BEAKER) (test 76 mL/min/1.73 ESTIMA DAIN GFR IS code = 1092) sq m NOT ACCURATE CREATININE CLEARANCE IN PREDICTING GLOMERULAR FILTRATION RATE . ESTIMATED GFR I S NOT APPLICABLE FOR DIALYSIS PATIEN TS. [id number] 06:03:00 Test Item Value Reference Range Interpretation Comments PHOSPHORUS (BEAKER) (test code = 4.2 mg/dL 2.3-4.7 604) [id number] 06:03:00 Test Item Value Reference Range Interpretation Comments MAGNESIUM (BEAKER) (test code = 2.0 mg/dL 1.6-2.6 627) BASIC METABOLIC [id number] 06:03:00 Test Item Value Reference Range Interpretation Comments SODIUM (BEAKER) 136 meq/L 136-145 (test code = 381) POTASSIUM (BEAKER) 3.9 meq/L 3.5-5.1 (test code = 379) CHLORIDE (BEAKER) 104 meq/L 98-107 (test code = 382) CO2 (BEAKER) (test 23 meq/L 22-29 code = 355) BLOOD UREA NITROGEN 11 mg/dL 7-21 (BEAKER) (test code = 354) CREATININE (BEAKER) 1.01 mg/dL 0.57-1.25 (test code = 358) GLUCOSE RANDOM 88 mg/dL 70-105 (BEAKER) (test code = 652) CALCIUM (BEAKER) 9.2 mg/dL 8.4-10.2 (test code = 697) EGFR (BEAKER) (test 79 mL/min/1.73 ESTIMA DAIN GFR IS code = 1092) sq m NOT ACCURATE CREATININE CLEARANCE IN PREDICTING GLOMERULAR FILTRATION RATE . ESTIMATED GFR I S NOT APPLICABLE FOR DIALYSIS PATIEN TS. CBC (HEMOGRAM ONLY)2019-03-25 05:40:00 Test Item Value Reference Range Interpretation Comments WHITE BLOOD CELL COUNT (BEAKER) 4.8 K/ L 3.5-10.5 (test code = 775) RED BLOOD CELL COUNT (BEAKER) 4.10 M/ L 4.63-6.08 L (test code = 761) HEMOGLOBIN (BEAKER) (test code = 12.1 GM/DL 13.7-17.5 L 410) HEMATOCRIT (BEAKER) (test code = 36.6 % 40.1-51.0 L 411) MEAN CORPUSCULAR VOLUME (BEAKER) 89.3 fL 79.0-92.2 (test code = 753) MEAN CORPUSCULAR HEMOGLOBIN 29.5 pg 25.7-32.2 (BEAKER) (test code = 751) MEAN CORPUSCULAR HEMOGLOBIN CONC 33.1 GM/DL 32.3-36.5 (BEAKER) (test code = 752) RED CELL DISTRIBUTION WIDTH 13.2 % 11.6-14.4 (BEAKER) (test code = 412) PLATELET COUNT (BEAKER) (test 285 K/CU MM 150-450 code = 756) MEAN PLATELET VOLUME (BEAKER) 9.4 fL 9.4-12.4 (test code = 754) NUCLEATED RED BLOOD CELLS 0 /100 WBC 0-0 (BEAKER) (test code = 413) [id number] 05:52:00 Test Item Value Reference Range Interpretation Comments PHOSPHORUS (BEAKER) (test code = 4.2 mg/dL 2.3-4.7 604) [id number] 05:52:00 Test Item Value Reference Range Interpretation Comments MAGNESIUM (BEAKER) (test code = 1.9 mg/dL 1.6-2.6 627) BASIC METABOLIC [id number] 05:52:00 Test Item Value Reference Range Interpretation Comments SODIUM (BEAKER) 136 meq/L 136-145 (test code = 381) POTASSIUM (BEAKER) 3.9 meq/L 3.5-5.1 (test code = 379) CHLORIDE (BEAKER) 103 meq/L 98-107 (test code = 382) CO2 (BEAKER) (test 27 meq/L 22-29 code = 355) BLOOD UREA NITROGEN 14 mg/dL 7-21 (BEAKER) (test code = 354) CREATININE (BEAKER) 0.91 mg/dL 0.57-1.25 (test code = 358) GLUCOSE RANDOM 85 mg/dL 70-105 (BEAKER) (test code = 652) CALCIUM (BEAKER) 8.7 mg/dL 8.4-10.2 (test code = 697) EGFR (BEAKER) (test 89 mL/min/1.73 ESTIMA DAIN GFR IS code = 1092) sq m NOT ACCURATE CREATININE CLEARANCE IN PREDICTING GLOMERULAR FILTRATION RATE . ESTIMATED GFR I S NOT APPLICABLE FOR DIALYSIS PATIEN TS. [id number] 06:51:00 Test Item Value Reference Range Interpretation Comments PHOSPHORUS (BEAKER) (test code = 4.3 mg/dL 2.3-4.7 604) [id number] 06:51:00 Test Item Value Reference Range Interpretation Comments MAGNESIUM (BEAKER) (test code = 2.0 mg/dL 1.6-2.6 627) BASIC METABOLIC [id number] 06:51:00 Test Item Value Reference Range Interpretation Comments SODIUM (BEAKER) 137 meq/L 136-145 (test code = 381) POTASSIUM (BEAKER) 4.0 meq/L 3.5-5.1 (test code = 379) CHLORIDE (BEAKER) 107 meq/L 98-107 (test code = 382) CO2 (BEAKER) (test 25 meq/L 22-29 code = 355) BLOOD UREA NITROGEN 19 mg/dL 7-21 (BEAKER) (test code = 354) CREATININE (BEAKER) 0.88 mg/dL 0.57-1.25 (test code = 358) GLUCOSE RANDOM 91 mg/dL 70-105 (BEAKER) (test code = 652) CALCIUM (BEAKER) 8.9 mg/dL 8.4-10.2 (test code = 697) EGFR (BEAKER) (test 92 mL/min/1.73 ESTIMA DAIN GFR IS code = 1092) sq m NOT ACCURATE CREATININE CLEARANCE IN PREDICTING GLOMERULAR FILTRATION RATE . ESTIMATED GFR I S NOT APPLICABLE FOR DIALYSIS PATIEN TS. CBC (HEMOGRAM ONLY)2019-03-23 06:07:00 Test Item Value Reference Range Interpretation Comments WHITE BLOOD CELL COUNT (BEAKER) 5.0 K/ L 3.5-10.5 (test code = 775) RED BLOOD CELL COUNT (BEAKER) 3.76 M/ L 4.63-6.08 L (test code = 761) HEMOGLOBIN (BEAKER) (test code = 11.4 GM/DL 13.7-17.5 L 410) HEMATOCRIT (BEAKER) (test code = 34.4 % 40.1-51.0 L 411) MEAN CORPUSCULAR VOLUME (BEAKER) 91.5 fL 79.0-92.2 (test code = 753) MEAN CORPUSCULAR HEMOGLOBIN 30.3 pg 25.7-32.2 (BEAKER) (test code = 751) MEAN CORPUSCULAR HEMOGLOBIN CONC 33.1 GM/DL 32.3-36.5 (BEAKER) (test code = 752) RED CELL DISTRIBUTION WIDTH 13.5 % 11.6-14.4 (BEAKER) (test code = 412) PLATELET COUNT (BEAKER) (test 241 K/CU MM 150-450 code = 756) MEAN PLATELET VOLUME (BEAKER) 9.7 fL 9.4-12.4 (test code = 754) NUCLEATED RED BLOOD CELLS 0 /100 WBC 0-0 (BEAKER) (test code = 413) TISSUE [id number] 11:50:00Surgical Pathology Report Case: [id number] Authorizing Provider: Mela Larson MD Collected: 03/18/2019 1827 Ordering Location: [facility] Received: 03/21/2019 0823 SERVICES Pathologist: Jordan Celaya MD Specimen: Small Bowel, NOS A. SMALL BOWEL, ILEOSTOMY PROLAPSE, TAKEDOWN: - ANASTOMOSIS SITE WITH ACTIVE CHRONIC INFLAMMATION AND FOCAL ISCHEMIC CHANGES - MUCOSAL RESECTION MARGINS, NEGATIVE FOR MALIGNANCY - ONE BENIGN LYMPH NODE (0/1) - NEGATIVE FOR DYSPLASIA OR MALIGNANCY Signing Pathologist Direct Phone Line: [phone] signed by Jordan Celaya MD on 03/22/2019 at 11:50 [id number] of ileostomyReceived in a container labeled "small [...] smooth. The specimen is opened to show blood-filled lumen with abad-pink and hemorrhagic mucosa. The ostomy stump marginis serially sectioned to show underneath adipose tissue with no grossly identified lesions. Sectioning through the fat reveals two lymph nodes ranging from 0.5 to 1.2 cm in greatest dimension. Motor Vehicle Clerk sections are submitted as follows: A1-A2, mucosal resection margin, en face; A3-A6, outside dealer sales representative sections of the possible ostomy stump; A7-A11, serial outside dealer sales representative sections from mucosal resection margin to the possible ostomy stump; A12, two lymph nodes. TH/plPerformed.[id number] 06:58:00 Test Item Value Reference Range Interpretation Comments PHOSPHORUS (BEAKER) (test code = 3.8 mg/dL 2.3-4.7 604) [id number] 06:58:00 Test Item Value Reference Range Interpretation Comments MAGNESIUM (BEAKER) (test code = 2.0 mg/dL 1.6-2.6 627) BASIC METABOLIC [id number] 06:58:00 Test Item Value Reference Range Interpretation Comments SODIUM (BEAKER) 139 meq/L 136-145 (test code = 381) POTASSIUM (BEAKER) 3.7 meq/L 3.5-5.1 (test code = 379) CHLORIDE (BEAKER) 105 meq/L 98-107 (test code = 382) CO2 (BEAKER) (test 28 meq/L 22-29 code = 355) BLOOD UREA NITROGEN 12 mg/dL 7-21 (BEAKER) (test code = 354) CREATININE (BEAKER) 0.82 mg/dL 0.57-1.25 (test code = 358) GLUCOSE RANDOM 93 mg/dL 70-105 (BEAKER) (test code = 652) CALCIUM (BEAKER) 8.8 mg/dL 8.4-10.2 (test code = 697) EGFR (BEAKER) (test 100 mL/min/1.73 ESTIM ATED GFR IS code = 1092) sq m NOT ACCURATE CREATININE CLEARANCE IN PREDICTING GLOMERULAR FILTRATION RATE . ESTIMATED GFR I S NOT APPLICABLE FOR DIALYSIS PATIEN TS. CBC W/PLT COUNT & AUTO [id number] 05:42:00 Test Item Value Reference Range Interpretation Comments WHITE BLOOD CELL COUNT (BEAKER) 5.0 K/ L 3.5-10.5 (test code = 775) RED BLOOD CELL COUNT (BEAKER) 3.85 M/ L 4.63-6.08 L (test code = 761) HEMOGLOBIN (BEAKER) (test code = 11.7 GM/DL 13.7-17.5 L 410) HEMATOCRIT (BEAKER) (test code = 34.8 % 40.1-51.0 L 411) MEAN CORPUSCULAR VOLUME (BEAKER) 90.4 fL 79.0-92.2 (test code = 753) MEAN CORPUSCULAR HEMOGLOBIN 30.4 pg 25.7-32.2 (BEAKER) (test code = 751) MEAN CORPUSCULAR HEMOGLOBIN CONC 33.6 GM/DL 32.3-36.5 (BEAKER) (test code = 752) RED CELL DISTRIBUTION WIDTH 13.7 % 11.6-14.4 (BEAKER) (test code = 412) PLATELET COUNT (BEAKER) (test 247 K/CU MM 150-450 code = 756) MEAN PLATELET VOLUME (BEAKER) 11.1 fL 9.4-12.4 (test code = 754) NUCLEATED RED BLOOD CELLS 0 /100 WBC 0-0 (BEAKER) (test code = 413) NEUTROPHILS RELATIVE PERCENT 60 % (BEAKER) (test code = 429) LYMPHOCYTES RELATIVE PERCENT 26 % (BEAKER) (test code = 430) MONOCYTES RELATIVE PERCENT 9 % (BEAKER) (test code = 431) EOSINOPHILS RELATIVE PERCENT 4 % (BEAKER) (test code = 432) BASOPHILS RELATIVE PERCENT 1 % (BEAKER) (test code = 437) NEUTROPHILS ABSOLUTE COUNT 2.99 K/ L 1.78-5.38 (BEAKER) (test code = 670) LYMPHOCYTES ABSOLUTE COUNT 1.30 K/ L 1.32-3.57 L (BEAKER) (test code = 414) MONOCYTES ABSOLUTE COUNT (BEAKER) 0.47 K/ L 0.30-0.82 (test code = 415) EOSINOPHILS ABSOLUTE COUNT 0.18 K/ L 0.04-0.54 (BEAKER) (test code = 416) BASOPHILS ABSOLUTE COUNT (BEAKER) 0.04 K/ L 0.01-0.08 (test code = 417) IMMATURE GRANULOCYTES-RELATIVE 1 % 0-1 PERCENT (BEAKER) (test code = 2801) FL, [id number] 17:42:00Reason for exam:->evaluate for colon stricture as [...] minutes Number of images obtained: 11 Signed: Shanelle Lopezeport Verified Date/Time: 03/21/2019 17:42:21 Reading Location: [address] Consult Reading Room [id number] 03:58:00 Test Item Value Reference Range Interpretation Comments PHOSPHORUS (BEAKER) (test code = 3.0 mg/dL 2.3-4.7 604) [id number] 03:58:00 Test Item Value Reference Range Interpretation Comments MAGNESIUM (BEAKER) (test code = 2.0 mg/dL 1.6-2.6 627) BASIC METABOLIC [id number] 03:58:00 Test Item Value Reference Range Interpretation Comments SODIUM (BEAKER) 137 meq/L 136-145 (test code = 381) POTASSIUM (BEAKER) 4.0 meq/L 3.5-5.1 (test code = 379) CHLORIDE (BEAKER) 104 meq/L 98-107 (test code = 382) CO2 (BEAKER) (test 29 meq/L - code = 355) BLOOD UREA NITROGEN 10 mg/dL 7-21 (BEAKER) (test code = 354) CREATININE (BEAKER) 0.85 mg/dL 0.57-1.25 (test code = 358) GLUCOSE RANDOM 96 mg/dL 70-105 (BEAKER) (test code = 652) CALCIUM (BEAKER) 8.0 mg/dL 8.4-10.2 L (test code = 697) EGFR (BEAKER) (test 96 mL/min/1.73 ESTIMA DAIN GFR IS code = 1092) sq m NOT ACCURATE CREATININE CLEARANCE IN PREDICTING GLOMERULAR FILTRATION RATE . ESTIMATED GFR I S NOT APPLICABLE FOR DIALYSIS PATIEN TS. CBC W/PLT COUNT & AUTO [id number] 03:20:00 Test Item Value Reference Range Interpretation Comments WHITE BLOOD CELL COUNT (BEAKER) 4.8 K/ L 3.5-10.5 (test code = 775) RED BLOOD CELL COUNT (BEAKER) 3.56 M/ L 4.63-6.08 L (test code = 761) HEMOGLOBIN (BEAKER) (test code = 10.7 GM/DL 13.7-17.5 L 410) HEMATOCRIT (BEAKER) (test code = 33.3 % 40.1-51.0 L 411) MEAN CORPUSCULAR VOLUME (BEAKER) 93.5 fL 79.0-92.2 H (test code = 753) MEAN CORPUSCULAR HEMOGLOBIN 30.1 pg 25.7-32.2 (BEAKER) (test code = 751) MEAN CORPUSCULAR HEMOGLOBIN CONC 32.1 GM/DL 32.3-36.5 L (BEAKER) (test code = 752) RED CELL DISTRIBUTION WIDTH 13.5 % 11.6-14.4 (BEAKER) (test code = 412) PLATELET COUNT (BEAKER) (test 196 K/CU MM 150-450 code = 756) MEAN PLATELET VOLUME (BEAKER) 9.8 fL 9.4-12.4 (test code = 754) NUCLEATED RED BLOOD CELLS 0 /100 WBC 0-0 (BEAKER) (test code = 413) NEUTROPHILS RELATIVE PERCENT 58 % (BEAKER) (test code = 429) LYMPHOCYTES RELATIVE PERCENT 27 % (BEAKER) (test code = 430) MONOCYTES RELATIVE PERCENT 12 % (BEAKER) (test code = 431) EOSINOPHILS RELATIVE PERCENT 2 % (BEAKER) (test code = 432) BASOPHILS RELATIVE PERCENT 1 % (BEAKER) (test code = 437) NEUTROPHILS ABSOLUTE COUNT 2.77 K/ L 1.78-5.38 (BEAKER) (test code = 670) LYMPHOCYTES ABSOLUTE COUNT 1.29 K/ L 1.32-3.57 L (BEAKER) (test code = 414) MONOCYTES ABSOLUTE COUNT (BEAKER) 0.59 K/ L 0.30-0.82 (test code = 415) EOSINOPHILS ABSOLUTE COUNT 0.11 K/ L 0.04-0.54 (BEAKER) (test code = 416) BASOPHILS ABSOLUTE COUNT (BEAKER) 0.03 K/ L 0.01-0.08 (test code = 417) IMMATURE GRANULOCYTES-RELATIVE 0 % 0-1 PERCENT (BEAKER) (test code = 2801) BASIC METABOLIC [id number] 06:26:00 Test Item Value Reference Range Interpretation Comments SODIUM (BEAKER) 134 meq/L 136-145 L (test code = 381) POTASSIUM (BEAKER) 3.7 meq/L 3.5-5.1 (test code = 379) CHLORIDE (BEAKER) 103 meq/L 98-107 (test code = 382) CO2 (BEAKER) (test 26 meq/L 22-29 code = 355) BLOOD UREA NITROGEN 15 mg/dL 7-21 (BEAKER) (test code = 354) CREATININE (BEAKER) 0.84 mg/dL 0.57-1.25 (test code = 358) GLUCOSE RANDOM 93 mg/dL 70-105 (BEAKER) (test code = 652) CALCIUM (BEAKER) 7.9 mg/dL 8.4-10.2 L (test code = 697) EGFR (BEAKER) (test 97 mL/min/1.73 ESTIMA DAIN GFR IS code = 1092) sq m NOT ACCURATE CREATININE CLEARANCE IN PREDICTING GLOMERULAR FILTRATION RATE . ESTIMATED GFR I S NOT APPLICABLE FOR DIALYSIS PATIEN TS. [id number] 06:05:00 Test Item Value Reference Range Interpretation Comments PHOSPHORUS (BEAKER) (test code = 2.2 mg/dL 2.3-4.7 L 604) [id number] 06:05:00 Test Item Value Reference Range Interpretation Comments MAGNESIUM (BEAKER) (test code = 2.0 mg/dL 1.6-2.6 627) CBC W/PLT COUNT & AUTO [id number] 05:25:00 Test Item Value Reference Range Interpretation Comments WHITE BLOOD CELL COUNT (BEAKER) 5.9 K/ L 3.5-10.5 (test code = 775) RED BLOOD CELL COUNT (BEAKER) 3.80 M/ L 4.63-6.08 L (test code = 761) HEMOGLOBIN (BEAKER) (test code = 11.4 GM/DL 13.7-17.5 L 410) HEMATOCRIT (BEAKER) (test code = 35.2 % 40.1-51.0 L 411) MEAN CORPUSCULAR VOLUME (BEAKER) 92.6 fL 79.0-92.2 H (test code = 753) MEAN CORPUSCULAR HEMOGLOBIN 30.0 pg 25.7-32.2 (BEAKER) (test code = 751) MEAN CORPUSCULAR HEMOGLOBIN CONC 32.4 GM/DL 32.3-36.5 (BEAKER) (test code = 752) RED CELL DISTRIBUTION WIDTH 13.8 % 11.6-14.4 (BEAKER) (test code = 412) PLATELET COUNT (BEAKER) (test 201 K/CU MM 150-450 code = 756) MEAN PLATELET VOLUME (BEAKER) 10.2 fL 9.4-12.4 (test code = 754) NUCLEATED RED BLOOD CELLS 0 /100 WBC 0-0 (BEAKER) (test code = 413) NEUTROPHILS RELATIVE PERCENT 67 % (BEAKER) (test code = 429) LYMPHOCYTES RELATIVE PERCENT 21 % (BEAKER) (test code = 430) MONOCYTES RELATIVE PERCENT 11 % (BEAKER) (test code = 431) EOSINOPHILS RELATIVE PERCENT 1 % (BEAKER) (test code = 432) BASOPHILS RELATIVE PERCENT 0 % (BEAKER) (test code = 437) NEUTROPHILS ABSOLUTE COUNT 3.92 K/ L 1.78-5.38 (BEAKER) (test code = 670) LYMPHOCYTES ABSOLUTE COUNT 1.25 K/ L 1.32-3.57 L (BEAKER) (test code = 414) MONOCYTES ABSOLUTE COUNT (BEAKER) 0.63 K/ L 0.30-0.82 (test code = 415) EOSINOPHILS ABSOLUTE COUNT 0.06 K/ L 0.04-0.54 (BEAKER) (test code = 416) BASOPHILS ABSOLUTE COUNT (BEAKER) 0.02 K/ L 0.01-0.08 (test code = 417) IMMATURE GRANULOCYTES-RELATIVE 0 % 0-1 PERCENT (BEAKER) (test code = 2801) [id number] 04:31:00 Test Item Value Reference Range Interpretation Comments PHOSPHORUS (BEAKER) (test code = 3.7 mg/dL 2.3-4.7 604) [id number] 04:31:00 Test Item Value Reference Range Interpretation Comments MAGNESIUM (BEAKER) (test code = 1.9 mg/dL 1.6-2.6 627) BASIC METABOLIC [id number] 04:31:00 Test Item Value Reference Range Interpretation Comments SODIUM (BEAKER) 133 meq/L 136-145 L (test code = 381) POTASSIUM (BEAKER) 4.7 meq/L 3.5-5.1 (test code = 379) CHLORIDE (BEAKER) 106 meq/L 98-107 (test code = 382) CO2 (BEAKER) (test 19 meq/L 22-29 L code = 355) BLOOD UREA NITROGEN 19 mg/dL 7-21 (BEAKER) (test code = 354) CREATININE (BEAKER) 1.10 mg/dL 0.57-1.25 (test code = 358) GLUCOSE RANDOM 105 mg/dL 70-105 (BEAKER) (test code = 652) CALCIUM (BEAKER) 8.1 mg/dL 8.4-10.2 L (test code = 697) EGFR (BEAKER) (test 71 mL/min/1.73 ESTIMA DAIN GFR IS code = 1092) sq m NOT ACCURATE CREATININE CLEARANCE IN PREDICTING GLOMERULAR FILTRATION RATE . ESTIMATED GFR I S NOT APPLICABLE FOR DIALYSIS PATIEN TS. CBC W/PLT COUNT & AUTO [id number] 04:15:00 Test Item Value Reference Range Interpretation Comments WHITE BLOOD CELL COUNT (BEAKER) 9.9 K/ L 3.5-10.5 (test code = 775) RED BLOOD CELL COUNT (BEAKER) 4.34 M/ L 4.63-6.08 L (test code = 761) HEMOGLOBIN (BEAKER) (test code = 13.1 GM/DL 13.7-17.5 L 410) HEMATOCRIT (BEAKER) (test code = 40.3 % 40.1-51.0 411) MEAN CORPUSCULAR VOLUME (BEAKER) 92.9 fL 79.0-92.2 H (test code = 753) MEAN CORPUSCULAR HEMOGLOBIN 30.2 pg 25.7-32.2 (BEAKER) (test code = 751) MEAN CORPUSCULAR HEMOGLOBIN CONC 32.5 GM/DL 32.3-36.5 (BEAKER) (test code = 752) RED CELL DISTRIBUTION WIDTH 14.2 % 11.6-14.4 (BEAKER) (test code = 412) PLATELET COUNT (BEAKER) (test 207 K/CU MM 150-450 code = 756) MEAN PLATELET VOLUME (BEAKER) 10.3 fL 9.4-12.4 (test code = 754) NUCLEATED RED BLOOD CELLS 0 /100 WBC 0-0 (BEAKER) (test code = 413) NEUTROPHILS RELATIVE PERCENT 79 % (BEAKER) (test code = 429) LYMPHOCYTES RELATIVE PERCENT 12 % (BEAKER) (test code = 430) MONOCYTES RELATIVE PERCENT 9 % (BEAKER) (test code = 431) EOSINOPHILS RELATIVE PERCENT 0 % (BEAKER) (test code = 432) BASOPHILS RELATIVE PERCENT 0 % (BEAKER) (test code = 437) NEUTROPHILS ABSOLUTE COUNT 7.77 K/ L 1.78-5.38 H (BEAKER) (test code = 670) LYMPHOCYTES ABSOLUTE COUNT 1.17 K/ L 1.32-3.57 L (BEAKER) (test code = 414) MONOCYTES ABSOLUTE COUNT (BEAKER) 0.89 K/ L 0.30-0.82 H (test code = 415) EOSINOPHILS ABSOLUTE COUNT 0.00 K/ L 0.04-0.54 L (BEAKER) (test code = 416) BASOPHILS ABSOLUTE COUNT (BEAKER) 0.01 K/ L 0.01-0.08 (test code = 417) IMMATURE GRANULOCYTES-RELATIVE 0 % 0-1 PERCENT (BEAKER) (test code = 2801) [id number] 06:41:00 Test Item Value Reference Range Interpretation Comments PHOSPHORUS (BEAKER) (test code = 3.1 mg/dL 2.3-4.7 604) [id number] 06:41:00 Test Item Value Reference Range Interpretation Comments MAGNESIUM (BEAKER) (test code = 1.9 mg/dL 1.6-2.6 627) BASIC METABOLIC [id number] 06:41:00 Test Item Value Reference Range Interpretation Comments SODIUM (BEAKER) 136 meq/L 136-145 (test code = 381) POTASSIUM (BEAKER) 4.0 meq/L 3.5-5.1 (test code = 379) CHLORIDE (BEAKER) 108 meq/L 98-107 H (test code = 382) CO2 (BEAKER) (test 22 meq/L 22-29 code = 355) BLOOD UREA NITROGEN 17 mg/dL 7-21 (BEAKER) (test code = 354) CREATININE (BEAKER) 1.00 mg/dL 0.57-1.25 (test code = 358) GLUCOSE RANDOM 106 mg/dL 70-105 H (BEAKER) (test code = 652) CALCIUM (BEAKER) 8.5 mg/dL 8.4-10.2 (test code = 697) EGFR (BEAKER) (test 79 mL/min/1.73 ESTIMA DAIN GFR IS code = 1092) sq m NOT ACCURATE CREATININE CLEARANCE IN PREDICTING GLOMERULAR FILTRATION RATE . ESTIMATED GFR I S NOT APPLICABLE FOR DIALYSIS PATIEN TS. CBC W/PLT COUNT & AUTO [id number] 06:36:00 Test Item Value Reference Range Interpretation Comments WHITE BLOOD CELL COUNT (BEAKER) 11.1 K/ L 3.5-10.5 H (test code = 775) RED BLOOD CELL COUNT (BEAKER) 4.86 M/ L 4.63-6.08 (test code = 761) HEMOGLOBIN (BEAKER) (test code = 14.6 GM/DL 13.7-17.5 410) HEMATOCRIT (BEAKER) (test code = 43.7 % 40.1-51.0 411) MEAN CORPUSCULAR VOLUME (BEAKER) 89.9 fL 79.0-92.2 (test code = 753) MEAN CORPUSCULAR HEMOGLOBIN 30.0 pg 25.7-32.2 (BEAKER) (test code = 751) MEAN CORPUSCULAR HEMOGLOBIN CONC 33.4 GM/DL 32.3-36.5 (BEAKER) (test code = 752) RED CELL DISTRIBUTION WIDTH 14.2 % 11.6-14.4 (BEAKER) (test code = 412) PLATELET COUNT (BEAKER) (test 265 K/CU MM 150-450 code = 756) MEAN PLATELET VOLUME (BEAKER) 10.3 fL 9.4-12.4 (test code = 754) NUCLEATED RED BLOOD CELLS 0 /100 WBC 0-0 (BEAKER) (test code = 413) NEUTROPHILS RELATIVE PERCENT 78 % (BEAKER) (test code = 429) LYMPHOCYTES RELATIVE PERCENT 13 % (BEAKER) (test code = 430) MONOCYTES RELATIVE PERCENT 8 % (BEAKER) (test code = 431) EOSINOPHILS RELATIVE PERCENT 0 % (BEAKER) (test code = 432) BASOPHILS RELATIVE PERCENT 0 % (BEAKER) (test code = 437) NEUTROPHILS ABSOLUTE COUNT 8.60 K/ L 1.78-5.38 H (BEAKER) (test code = 670) LYMPHOCYTES ABSOLUTE COUNT 1.43 K/ L 1.32-3.57 (BEAKER) (test code = 414) MONOCYTES ABSOLUTE COUNT (BEAKER) 0.92 K/ L 0.30-0.82 H (test code = 415) EOSINOPHILS ABSOLUTE COUNT 0.00 K/ L 0.04-0.54 L (BEAKER) (test code = 416) BASOPHILS ABSOLUTE COUNT (BEAKER) 0.04 K/ L 0.01-0.08 (test code = 417) IMMATURE GRANULOCYTES-RELATIVE 1 % 0-1 PERCENT (BEAKER) (test code = 2801) CT, [id number] 17:04:00No PO contrastFINAL REPORT ABDOMINAL AND PELVIS CT DATED 03/17/2019 CLINICAL INFORMATION: Abdominal pain, unspecifiedlarge prolapse, eval anatomy for potential ileostomy revision TECHNIQUE: Axialimages of the abdomen and pelvis were obtained from diaphragm to the pubic symphysis without GI or intravenous contrast. This exam was performed according to our departmental dose-optimization program,which includes automated exposure control, adjustment of the mA and/or kV according to patient size a nd/or use of interactive reconstruction technique. COMMENT: Liver [...] mass, adenopathy or ascites is present. IMPRESSION: 1.Large right mid abdominal hernia with herniation a segment of the small bowel, omentum, and ascites fluid.2. No mechanical obstruction or ileus.3. Nonspecific wall thickening in the descending and sigmoid colon secondary to nondistention or colitis. Signed: Amberly Munroe MDReport Verified Date/Time: 03/17/2019 17:04:19 Reading Location: [facility] C013Y CT Body Reading Room XR ABDOMEN 2 [id number] 09:03:45XR ABDOMEN 2 VIEWSLOCATION: [id number]: Colstomy ProlapseCOMPARISON: Chest radiograph 04/15/2017, CT of the abdomen and pelvis04/14/2017FINDINGS: AP chest and AP supine/upright abdominal radiographs are obtained.The lungs are grossly clear. There is no evidence for pneumothorax. The cardiomediastinal silhouette is within normal limits. A nonspecific, nonobstructive bowel gas pattern is present.There isno evidence for pneumoperitoneum.There are no acute osseous abnormalities.IMPRESSION: 1. No acute cardiopulmonary abnormalities.2. Nonspecific, nonobstructive bowel gas pattern.XR CHEST 1 [id number] 11:32:15EXAM: CHEST ONE VIEWINDICATION: Chest painCOMPARISON: None availableTECHNIQUE: AP view of the chest.FINDINGS: The cardiomediastinal silhouette is normal. The lungs are clearbilaterally. No pneumothoraxor pleural effusion is identified. Theosseous structures are unremarkable.IMPRESSION: No acute cardiopulmonary process.LOCATION: [id number] Type and [id number] 21:21:00 Test Item Value Reference Range Interpretation Comments ABO type (test code = ABO) O Rh Type (test code = RH) Positive Comprehensive Metabolic [id number] 20:36:00 Test Item Value Reference Range Interpretation Comments Sodium (test code = 137 mmol/L 135-145 N NA) Potassium (test 4.5 mmol/L 3.5-5.1 N code = K) Chloride (test code 103 mmol/L 98-105 N = CL) Carbon Dioxide 25 mmol/L 22-29 N (test code = CO2) Glucose (test code 85 mg/dL 70-115 N = GLU) Blood Urea Nitrogen 19 mg/dL 6-20 N (test code = BUN) Creatinine (test 1.1 mg/dL 0.7-1.2 N code = CREAT) Calcium (test code 9.3 mg/dL 8.3-10.5 N = CA) Prot Total (test 6.7 g/dL 6.4-8.3 N code = TP) Albumin (test code 4.3 g/dL 3.5-5.2 N = ALB) A/G Ratio (test 1.8 Ratio code = AGRATIO) Globulin (test code 2.4 2.9-3.1 L = GLOB) Bili Total (test 0.3 mg/dL 0.1-0.9 N code = TBIL) Alk Phos (test code 67 U/L 40-129 N = APHOS) AST (test code = 22 U/L 1-40 N HEMOLYZED AST) ALT (test code = 18 U/L 1-41 N ALT) BUN/Creatinine 17.3 Ratio (test code = BCRATIO) Anion Gap (test 9 mmol/L 7-16 N code = AGAP) Estimated GFR (test >60 eGFR (es timated code = GFR) mL/min/1.73m2 Glomerular Glenn tration Rate) is an est imated value,calculate d from the patient's s kamron creatinine usin g the MDRD equation.I t is NOT the patient 's actual GFR. The eGFR provides a more clinicallyusefu l measure of kidn ey disease than se rum creatinine alone.This calculation cathy es sex and race into account, if the informationis provided. If th e race is not provided , and the patient isAfrican-Ameri can, multiply by 1.2 12. If sex is not prov ided, and thepatient is female, multipl y by 0.742. Results for patients <18 ye ars ofage have not been validated by th e MDRD study and shoul d be interpretedwith caution.eGFR Re sult Interpretation: eGFR > or = 60 is in t he Normal RangeeGF R < 60 may mean kidney diseaseeGFR < 1 5 may mean kidney failureRange s recommended by the National Kidney Foundation,http ://nkd ep.nih.gov Alcohol/Ethanol, [id number] 20:36:00 Test Item Value Reference Range Interpretation Comments Alcohol, Ethyl <0.01 g/dL 0.00-0.01 N Intoxicated 0 .080 g/dL (test code = ETOH) or more Prothrombin [id number] 20:00:00 Test Item Value Reference Range Interpretation Comments PT (test code = PT) 10.10 seconds 9.78-13.35 N INR (test code = INR) 0.88 Ratio 0.6-1.2 N Partial Thromboplastin [id number] 20:00:00 Test Item Value Reference Range Interpretation Comments aPTT (test code = PTT) 31.50 seconds 24.39-37.25 N CBC with [id number] 19:50:00 Test Item Value Reference Range Interpretation Comments WBC (test code = WBC) 6.5 K/cumm 4.4-10.5 N RBC (test code = RBC) 4.78 M/cumm 4.10-5.70 N Hemoglobin (test code = HGB) 14.0 gm/dL 13.4-17.4 N Hematocrit (test code = HCT) 44.9 % 38.7-52.0 N MCV (test code = MCV) 93.8 fL 80-100 N MCH (test code = MCH) 29.2 pg 27.0-32.5 N MCHC (test code = MCHC) 31.1 g/dL 32.0-37.5 L RDW (test code = RDW) 16.7 % 11.5-14.5 H Platelet Count (test code = 208 K/cumm 140-440 N PLTCT) MPV (test code = MPV) 8.6 fL Diff Method (test code = DIFFM) Auto Neutrophil (test code = NEUT) 55.7 % 36-70 N Lymphocyte (test code = LYMPH) 34.6 % 12-44 N Monocyte (test code = MONO) 6.6 % 0-11 N Eosinophil (test code = EOS) 2.6 % 0-7 N Basophil (test code = BASO) 0.5 % 0-2 N Neutro Abs (test code = ANEUT) 3.6 K/cumm 1.6-7.4 N Lymph Abs (test code = ALYMPH) 2.2 K/cumm 0.5-4.6 N [place] Abs (test code = AMONO) 0.4 K/cumm 0.0-1.2 N Eos Abs (test code = AEOS) 0.17 K/cumm 0.00-0.74 N Baso Abs (test code = ABASO) 0.0 K/cumm 0.00-0.21 N 00290& PELVIS W/O [id number] 17:36:28CT ABDOMEN AND PELVIS WITHOUT CONTRAST.CLINICAL HISTORY: [...] The prostate gland is normal in size. Noadenopathyis identified.The bones are intact.IMPRESSION: 1. Mild nonspecific wall thickening of the small and large bowel. Correlate for possible enterocolitis.2. Right lower quadrant ileostomy.Location: R16
--- NOTE | 2022-04-14 22:16 | RAD REPORT ---
EXAM DESCRIPTION: Lucas Single View04/14/2022 10:04 pm CLINICAL HISTORY: Abdominal pain COMPARISON: 2018 FINDINGS: Chronic elevation left hemidiaphragm The lungs appear clear of acute infiltrate. The heart is normal size IMPRESSION: No acute abnormalities displayed
[2022-04-14] MEDS ORDERED: NA CHLORIDE 0.9% 1,000 ML ONE (22:43)
[2022-04-14 23:34] LABS: Absolute Lymphocytes (CBC) 1.8 K/uL (0.7-4.9); Hematocrit 38.6 % (39.6-49.0); Lymphocytes % 27.8 % (15.3-44.8); MPV 7.5 fL (7.6-11.3); RBC Red Blood Cell Count 4.49 M/uL (4.33-5.43)
[2022-04-14 23:40] LABS: Protime INR 0.93
[2022-04-14 23:53] LABS: ALT/SGPT 53 U/L (12-78); AST/SGOT 24 U/L (15-37); Alkaline Phosphatase 90 U/L (45-117); BUN Blood Urea Nitrogen 37 mg/dL (7-18); Bicarbonate 24 mmol/L (21-32); Bilirubin Direct 0.1 mg/dL (0-0.2); Bilirubin Total 0.6 mg/dL (0.2-1.0); Glomerular Filtration Rate 30 ml/min (=/>90); Glucose Level 88 mg/dL (74-106); Potassium 4.2 mmol/L (3.5-5.1); Sodium Level 132 mmol/L (136-145)
[2022-04-14 23:54] LABS: Albumin 4.7 g/dL (3.4-5.0); Lipase 200 U/L (73-393); Magnesium 2.2 mg/dL (1.8-2.4); Protein, Total 8.6 g/dL (6.4-8.2)
[2022-04-15 00:04] LABS: Troponin High Sensitivity < 3.0 pg/mL (<58.9)
--- NOTE | 2022-04-15 01:27 | EDPHYS ---
Physician Documentation [facility] Name: Rico Mcneill Age: 52 yrs Sex: Male : 1970 Arrival Date: 04/14/2022 Time: 19:02 Bed 13 Private MD: ED Physician Rashaun Jiménez HPI: 04/14 21:35 This 52 yrs old Male presents to ER via EMS with complaints of Weakness. cp 21:35 The patient presents to the emergency department with weakness of the entire body, cp generalized weakness, that is mild. 21:35 Associated signs and symptoms: Pertinent positives: increased watery stool output from cp ileostomy, decreased urine output, Pertinent negatives: altered mental status, fever, headache. Severity of symptoms: in the emergency department the symptoms are unchanged despite home interventions. Patient's baseline: Neuro: alert and fully oriented, Motor: no deficits, Ambulation: walks without assistance, Speech: normal. Historical: - Allergies: 19:27 NKDA; kb3 - Home Meds: 19:27 None [Active]; kb3 - PMHx: 19:27 Bipolar disorder; bowel obstruction; colostomy; Hypertension; Hypothyroidism; kb3 - PSHx: 19:27 ileostomy; kb3 - Immunization history:: Adult Immunizations unknown, Client reports having NOT received the Covid vaccine. Last tetanus immunization: unknown. - Social history:: Smoking status: Patient denies any tobacco usage or history of. ROS: 21:40 Constitutional: Negative for body aches, chills, fever, poor PO intake. cp 21:40 Eyes: Negative for injury, pain, redness, and discharge. cp 21:40 ENT: Negative for drainage from ear(s), ear pain, sore throat, difficulty swallowing, difficulty handling secretions. 21:40 Cardiovascular: Negative for chest pain, edema, palpitations. 21:40 Respiratory: Negative for cough, shortness of breath, wheezing. 21:40 Abdomen/GI: Positive for abdominal pain, diarrhea, Negative for vomiting, constipation, black/tarry stool, rectal bleeding. 21:40 : Positive for decreased urine output, Negative for flank pain. 21:40 Neuro: Positive for weakness, Negative for altered mental status, headache, loss of consciousness, syncope. 21:40 All other systems are negative. Exam: 21:45 Constitutional: The patient appears in no acute distress, alert, awake, cp non-diaphoretic, non-toxic, well developed, well nourished. 21:45 Head/Face: Normocephalic, atraumatic. cp 21:45 Eyes: Periorbital structures: appear normal, Conjunctiva: normal, no exudate, no injection, Sclera: no appreciated abnormality, Lids and lashes: appear normal, bilaterally. 21:45 ENT: External ear(s): are unremarkable, Nose: is normal, Mouth: Lips: moist, Oral mucosa: pink and intact, moist, Posterior pharynx: Airway: no evidence of obstruction, patent. 21:45 Neck: ROM/movement: is normal, is supple, without pain, no range of motions limitations, no nuchal rigidity. 21:45 Chest/axilla: Inspection: normal, Palpation: is normal, no crepitus, no tenderness. 21:45 Cardiovascular: Rate: normal, Rhythm: regular, Edema: is not appreciated, JVD: is not appreciated. 21:45 Respiratory: the patient does not display signs of respiratory distress, Respirations: normal, no use of accessory muscles, no retractions, labored breathing, is not present, Breath sounds: are clear throughout, no decreased breath sounds, no stridor, no wheezing. 21:45 Abdomen/GI: Inspection: ileostomy noted RLQ, Bowel sounds: active, all quadrants, Palpation: soft, in all quadrants, mild abdominal tenderness, in all quadrants, rebound tenderness, involuntary guarding, is not appreciated. 21:45 Back: pain, is absent, ROM is normal. 21:45 Skin: no rash present. 21:45 Neuro: Orientation: to person, place \T\ time. Mentation: is normal, Cerebellar function: is grossly normal, Motor: moves all fours, strength is normal, Sensation: is normal. 22:45 ECG was reviewed by the Attending Physician. cp Vital Signs: 19:25 BP 97 / 67; Pulse 65; Resp 20; Temp 97.7; Pulse Ox 99% ; Weight 68.04 kg; Height 6 ft. kb3 1 in. (185.42 cm); Pain 10/10; 22:51 BP 91 / 73; Pulse 100; Resp 18; Pulse Ox 100% on R/A; tw5 23:06 BP 103 / 79; Pulse 95; Resp 18; Pulse Ox 100% on R/A; tw5 04/15 02:08 BP 96 / 74; Pulse 73; Resp 16 S; Pulse Ox 98% on R/A; ha1 04/14 19:25 Body Mass Index 19.79 (68.04 kg, 185.42 cm) kb3 MDM: 04/14 21:00 Patient medically screened. diego 23:00 Differential diagnosis: appendicitis, bowel obstruction, cholecystitis, Cholelithiasis, cp diverticulitis, non-specific abd pain, pancreatitis. 04/15 00:30 Data reviewed: vital signs, nurses notes, lab test result(s), EKG, radiologic studies, cp CT scan, plain films. 00:30 Test interpretation: by ED physician or midlevel provider: ECG, plain radiologic cp studies. Counseling: I had a detailed discussion with the patient and/or guardian regarding: the historical points, exam findings, and any diagnostic results supporting the discharge/admit diagnosis, lab results, radiology results, the need for further work-up and treatment in the hospital. Response to treatment: the patient's symptoms have mildly improved after treatment. 04/14 21:27 Order name: Basic Metabolic Panel; Complete Time: 00:14 cp 04/15 00:14 Interpretation: Normal except: NA 132; BUN 37; CRE 2.50; GFR 30; CA 10.3. cp 04/14 21: Order name: CBC with Diff; Complete Time: 00:01 cp 04/15 00:01 Interpretation: Normal except: HGB 12.5; HCT 38.6; RDW 18.0; MPV 7.5. cp 04/14 Order name: LFT's; Complete Time: 00:14 cp 04/15 01:27 Interpretation: Normal except: TP 8.6; GLOB 3.9. cp 04/14 21: Order name: Magnesium; Complete Time: 00:14 cp 04/14 21: Order name: PT-INR; Complete Time: 00:01 cp 04/14 21: Order name: Troponin HS; Complete Time: 00:14 cp 04/14 21:28 Order name: Lipase; Complete Time: 00:14 cp 04/14 21:28 Order name: Urine Microscopic Only cp 04/15 01:38 Order name: SARS RAPID; Complete Time: 02:40 tw5 04/15 05:09 Order name: CBC with Automated Diff; Complete Time: 18:26 EDMS 04/15 05:28 Order name: Renal Panel; Complete Time: 18:26 EDMS 04/15 05:28 Order name: Magnesium; Complete Time: 18:26 EDMS 04/16 02:57 Order name: CBC with Automated Diff EDMS 04/16 03:10 Order name: Renal Panel EDMS 04/14 21:27 Order name: XRAY Chest (1 view); Complete Time: 22:25 cp 04/15 00:02 Interpretation: Report review. cp 04/14 21:27 Order name: EKG; Complete Time: 21:28 cp 04/14 21:27 Order name: Cardiac monitoring; Complete Time: 02:08 cp 04/14 21:27 Order name: EKG - Nurse/Tech; Complete Time: 22:54 cp 04/14 21:27 Order name: IV Saline Lock; Complete Time: 22:54 cp 04/14 21:27 Order name: Labs collected and sent; Complete Time: 22:54 cp 04/14 21:28 Order name: O2 Per Protocol; Complete Time: 22:54 cp 04/15 00:21 Order name: Abdomen EDPA 04/15 07:34 Order name: US; Complete Time: 18:26 EDMS 04/16 03:10 Order name: Uric Acid EDPA 04/16 03:10 Order name: Magnesium EDPA 04/16 03:49 Order name: PTH Intact EDPA 04/16 09:38 Order name: Urine Microscopic Only EDMS 04/14 21:28 Order name: O2 Sat Monitoring; Complete Time: 22:54 cp EC/22 22:45 Rate is 77 beats/min. Rhythm is regular. DE interval is normal. QRS interval is normal. cp QT interval is normal. T waves are Inverted in leads aVL, aVR. Interpreted by me. Reviewed by me. Administered Medications: 23:05 Drug: NS 0.9% 1000 ml Route: IV; Rate: 1 bolus; Site: right hand; tw5 04/15 02:08 Follow up: Response: No adverse reaction; IV Status: Completed infusion; IV Intake: lg3 1000ml 01:52 Drug: NS 0.9% 1000 ml Route: IV; Rate: 125 ml/hr; Site: right hand; tw5 Disposition Summary: 04/15/22 01:26 Hospitalization Ordered Hospitalization Status: Observation cp Provider: Denice Higginbotham cp Condition: Stable cp Problem: new cp Symptoms: have improved cp Bed/Room Type: Standard cp Location: Telemetry/MedSurg (observation)(04/16/22 17:07) dw Room Assignment: 409(04/16/22 17:07) dw Diagnosis - Weakness cp - Unspecified kidney failure cp Forms: - Medication Reconciliation Form cp - SBAR form cp Signatures: Dispatcher [employer] EDPA Clemencia Hook, RN RN Rashaun Pat MD MD cha Page, Corey, PA PA cp Annia Blas, RN RN Radha Myers tw5 Denice Higginbotham PA PA sb3 Margaret Ac RN RN kb3 Ashlyn Ray RN lg3 Corrections: (The following items were deleted from the chart) 00:20 04/14 22:25 Abdomen Pelvis W Con+CT.RAD.BRZ ordered. EDPA EDPA 04/15 03:14 01:26 Telemetry/MedSurg (observation) cp cg 03:14 01:26 cp cg 04/16 17:07 04/15 03:14 [facility] ER HOLD cg dw 04/16 17:07 04/15 03:14 ERHOLD- cg dw
--- NOTE | 2022-04-15 01:27 | ER ---
Nurse's Notes [facility] Name: Rico Mcneill Age: 52 yrs Sex: Male : 1970 Arrival Date: 04/14/2022 Time: 19:02 Bed 13 Private MD: Diagnosis: Weakness;Unspecified kidney failure Presentation: 04/14 19:25 Chief complaint: Patient states: Pt reports right-sided abdominal pin, increased output kb3 from his ileostomy and vomiting x2 episodes since 0900 this morning. Coronavirus screen: Vaccine status: Patient reports being unvaccinated. Client denies travel out of the [place] in the last 14 days. Ebola Screen: Patient negative for fever greater than or equal to 101.5 degrees Fahrenheit, and additional compatible Ebola Virus Disease symptoms Patient denies exposure to infectious person. Patient denies travel to an Ebola-affected area in the 21 days before illness onset. No symptoms or risks identified at this time. No acute neurological deficit is noted. Initial Sepsis Screen: Does the patient meet any 2 criteria? No. Patient's initial sepsis screen is negative. Does the patient have a suspected source of infection? No. Patient's initial sepsis screen is negative. Risk Assessment: Do you want to hurt yourself or someone else? Patient reports no desire to harm self or others. Onset of symptoms was April 14, 2022 at 09:00. 19:25 Method Of Arrival: EMS: [facility] kb3 19:25 Acuity: OCTAVIO 3 kb3 Triage Assessment: 19:27 The onset of the patients symptoms was more than six hours ago. General: Appears in no kb3 apparent distress. Behavior is calm, cooperative. Pain: Complains of pain in right upper quadrant and right lower quadrant Pain does not radiate. Pain currently is 10 out of 10 on a pain scale. Quality of pain is described as burning, Pain began. Neuro: No deficits noted. Historical: - Allergies: 19:27 NKDA; kb3 - Home Meds: 19:27 None [Active]; kb3 - PMHx: 19:27 Bipolar disorder; bowel obstruction; colostomy; Hypertension; Hypothyroidism; kb3 - PSHx: 19:27 ileostomy; kb3 - Immunization history:: Adult Immunizations unknown, Client reports having NOT received the Covid vaccine. Last tetanus immunization: unknown. - Social history:: Smoking status: Patient denies any tobacco usage or history of. Screenin:51 Abuse screen: Denies threats or abuse. Denies injuries from another. Nutritional tw5 screening: No deficits noted. Tuberculosis screening: No symptoms or risk factors identified. Fall Risk None identified. Assessment: 22:51 General: Reports "I have not been able to pee for two days. I dont feel like it has tw5 been leaking out or anything, I just have not peed.". Respiratory: Airway is patent Trachea midline. GI: Colostomy site is clean and dry. : Bladder scanner showed 0 ML in bladder. Patient denies the feeling of 'fullness' or the need to urinate. 04/15 02:08 The patient tolerated 90mL of water. No drooling, immediate coughing, gurgling, or lg3 clearing of the throat was noted. 02:31 Reassessment: No changes from previously documented assessment. Patient and/or family ha1 updated on plan of care and expected duration. Pain level reassessed. Patient is alert, oriented x 3, equal unlabored respirations, skin warm/dry/pink. Vital Signs: 04/14 19:25 BP 97 / 67; Pulse 65; Resp 20; Temp 97.7; Pulse Ox 99% ; Weight 68.04 kg; Height 6 ft. kb3 1 in. (185.42 cm); Pain 10/10; 22:51 BP 91 / 73; Pulse 100; Resp 18; Pulse Ox 100% on R/A; tw5 23:06 BP 103 / 79; Pulse 95; Resp 18; Pulse Ox 100% on R/A; tw5 04/15 02:08 BP 96 / 74; Pulse 73; Resp 16 S; Pulse Ox 98% on R/A; ha1 04/14 19:25 Body Mass Index 19.79 (68.04 kg, 185.42 cm) kb3 ED Course: 04/14 19:02 Patient arrived in ED. mr 19:26 Triage completed. kb3 19:27 Arm band placed on right wrist. kb3 20:40 Rashaun Irby PA is PHCP. cp 20:40 Rashaun Jiménez MD is Attending Physician. cp 21:25 Radha Block is Primary Nurse. tw5 22:07 XRAY Chest (1 view) In Process Unspecified. EDMS 22:51 Patient has correct armband on for positive identification. Bed in low position. Call tw5 light in reach. Side rails up X 1. Pulse ox on. NIBP on. Door closed. Noise minimized. Moved to private room. 22:51 EKG done. tw5 23:05 Inserted saline lock: 22 gauge in right hand, using aseptic technique. unable to tw5 collect blood. Lab paged for blood draw. 04/15 00:37 Abdomen In Process Unspecified. EDMS 01:25 Denice Higginbotham PA is Hospitalizing Provider. cp 01:52 SARS RAPID Sent. tw5 02:09 No provider procedures requiring assistance completed. Patient admitted, IV remains in lg3 place. intact. 04/16 07:03 Primary Nurse role handed off by Rahda Block 07:14 Karin Haro, RN is Primary Nurse. jg9 Administered Medications: 04/14 23:05 Drug: NS 0.9% 1000 ml Route: IV; Rate: 1 bolus; Site: right hand; tw5 04/15 02:08 Follow up: Response: No adverse reaction; IV Status: Completed infusion; IV Intake: lg3 1000ml 01:52 Drug: NS 0.9% 1000 ml Route: IV; Rate: 125 ml/hr; Site: right hand; tw5 Medication: 04/14 22:51 VIS not applicable for this client. tw5 Intake: 04/15 02:08 IV: 1000ml; Total: 1000ml. lg3 Outcome: 01:26 Decision to Hospitalize by Provider. cp 02:09 Admitted to ER Hold. Please see [facility] for further documentation. lg3 02:09 Condition: stable 02:09 Instructed on the need for admit, Demonstrated understanding of instructions. 04/16 17:38 Patient left the ED. jg9 Signatures: Dispatcher [employer] EDMS Yana BlackSaira segal mr Rashaun Irby PA PA cp Gibson, Lacie, RN RN lg3 Radha Block tw5 Karin Haro, RN BRITTNY jg9 Josi Bernardo, BRITTNY RN Margaret Townsend RN RN kb3
[2022-04-15] MEDS ORDERED: NA CHLORIDE 0.9% 1,000 ML ONE ×5 (01:46→15:21)
[2022-04-15 02:17] LABS: SARS-CoV-2 Antigen Rapid Res Negative (Negative)
--- NOTE | 2022-04-15 03:10 | P.HP ---
Certification for Inpatient Patient admitted to: Observation With expected LOS: <2 Midnights Patient will require the following post-hospital care: None Practitioner: I am a practitioner with admitting privileges, knowledge of patient current condition, hospital course, and medical plan of care. Services: Services provided to patient in accordance with Admission requirements found in Title 42 Section 412.3 of the Code of Federal Regulations Patient History Date of Service: 04/15/22 Reason for admission: Acute Renal Failure History of Present Illness: Patient is a 52-year-old male with history of hypertension, hypothyroidism and ileostomy status post colectomy who presented to the ED with complaints of right-sided abdominal pain, decreased urine output, increased ostomy output, and vomiting. Patient reports that the symptoms have been occurring for about 2 days now. He states that he is homeless and drinks a lot of water but has not urinated in 2 days. He feels that all of the water he drinks has just resulted in watery stool through his ostomy. His vitals are stable upon arrival to the ED. Initial bladder scan shows 0 mL. Labs significant for creatinine 2.5, sodium 132, BUN 37, CT negative for acute findings. He was given 2 L of fluid. Upon my assessment, patient still without any urine output. Patient states he does not feel the urge to urinate either. He states that this has never happened before. He denies any current pain, just reports some nausea. Patient is admitted for further evaluation and treatment. Allergies No Known Drug Allergies Allergy (Verified 09/09/16 22:36) Unknown Home Medications: NK [No Home Meds] 02/04/18 - Past Medical/Surgical History Diabetic: No -: Hypothyroidism -: Bipolar Disorder -: HTN -: bowel obstruction -: Colectomy -: Ileostomy Psychosocial/ Personal History: Patient is homeless. - Family History Father -: Cancer Mother -: Heart disease - Social History Smoking Status: Never smoker Alcohol use: Yes CD- Drugs: No Caffeine use: Yes Place of Residence: Homeless Review of Systems Gastrointestinal: Nausea, Vomiting, Diarrhea Genitourinary: As per HPI Physical Examination - Physical Exam General: Alert, In no apparent distress HEENT: Atraumatic, PERRLA, EOMI, Sclerae nonicteric Neck: Supple, 2+ carotid pulse no bruit, No LAD, Without JVD or thyroid abnormality Respiratory: Clear to auscultation bilaterally, Normal air movement Cardiovascular: Regular rate/rhythm, Normal S1 S2 Gastrointestinal: Normal bowel sounds, Soft and benign, Non-distended, No tenderness, Other (Ileostomy) Musculoskeletal: No tenderness Integumentary: No rashes Neurological: Normal speech, Normal strength at 5/5 x4 extr, Normal tone, Normal affect - Studies Laboratory Data (last 24 hrs) 04/14/22 23:21: PT 10.2, INR 0.93 04/14/22 23:21: WBC 6.30, Hgb 12.5 L, Hct 38.6 L, Plt Count 335 04/14/22 23:21: Sodium 132 L, Potassium 4.2, BUN 37 H, Creatinine 2.50 H, Glucose 88, Magnesium 2.2, Total Bilirubin 0.6, AST 24, ALT 53, Alkaline Phosphatase 90, Lipase 200 Assessment and Plan - Problems (Diagnosis) (1) Acute renal failure Current Visit: Yes Status: Acute Qualifiers: Acute renal failure type: unspecified Qualified Code(s): N17.9 - Acute kidney failure, unspecified (2) Anuria Current Visit: Yes Status: Acute (3) Hyponatremia Current Visit: Yes Status: Acute (4) Nausea, vomiting, and diarrhea Current Visit: Yes Status: Acute - Plan -Nephrology consulted. Renal ultrasound ordered. -Repeat labs in morning -Monitor intake and output closely -Continue IV fluids -Antiemetics as needed -Monitor and replete electrolytes per protocol -Reconcile and continue home medications -Lovenox for VTE ppx -Full code Discharge Plan: Other Plan to discharge in: 24 Hours - Advance Directives Does patient have a Living Will: No Does patient have a Durable POA for Healthcare: No - Code Status/Comfort Care Code Status Assessed: Yes (Full) Critical Care: No Time Spent Managing Pts Care (In Minutes): 50
[2022-04-15] MEDS ORDERED: ACETAMINOPHEN 500 MG TAB PO PRN (03:56)
[2022-04-15] MEDS: NA CHLORIDE 0.9% 1,000 ML IV SCH ×2 (04:00→12:00)
[2022-04-15 05:08] LABS: Absolute Lymphocytes (CBC) 1.7 K/uL (0.7-4.9); Hematocrit 33.7 % (39.6-49.0); Lymphocytes % 30.6 % (15.3-44.8); MCV 85.5 fL (80-100); MPV 7.4 fL (7.6-11.3); RBC Red Blood Cell Count 3.95 M/uL (4.33-5.43)
[2022-04-15 05:27] LABS: Albumin 3.7 g/dL (3.4-5.0); Magnesium 2.1 mg/dL (1.8-2.4); Phosphorus 5.3 mg/dL (2.5-4.9); Potassium 3.7 mmol/L (3.5-5.1)
[2022-04-15] MEDS ORDERED: POTASSIUM 25 MEQ EFFERV TAB PO ONE (05:58)
[2022-04-15] MEDS ORDERED: POTASSIUM 25 MEQ EFFERV TAB ONE (06:07)
--- NOTE | 2022-04-15 07:34 | RAD REPORT ---
EXAM DESCRIPTION: US - Renal Ultrasound-Complete - 04/15/2022 4:54 am CLINICAL HISTORY: acute renal failure, oliguria COMPARISON: Abdomen Pelvis Wo Contrast dated 04/15/2022 FINDINGS: Both kidneys are normal in size, shape and echotexture. The right kidney measures 8.6 cm. No hydronephrosis, focal mass or perinephric fluid. The left kidney measures 8.9 cm. No hydronephrosis, focal mass or perinephric fluid. The urinary bladder is incompletely distended without gross abnormality seen. IMPRESSION: Unremarkable renal sonogram. No hydronephrosis.
[2022-04-15] MEDS: ENOXAPARIN 40 MG/0.4 ML SQ SCH (09:00)
[2022-04-15] MEDS ORDERED: ENOXAPARIN 40 MG/0.4 ML SQ ONE (10:21)
[2022-04-15] MEDS ORDERED: NA CHLORIDE 0.9% 1,000 ML IV ONE (13:24)
--- NOTE | 2022-04-15 13:49 | EKG ---
Test Date: 2022-04-14 Test Time: 22:41:13 [employer] Products: MEASUREMENT RESULTS: Intervals: Rate: 77 TN: 144 QRSD: 92 QT: 356 QTc: 402 [place]: P: 78 TN: 144 QRS: 75 T: 78 INTERPRETIVE STATEMENTS: Normal sinus rhythm Possible Left atrial enlargement Borderline ECG Compared to ECG 04/02/2019 12:33:02 No significant changes Electronically Signed On 04-15-22 13:48:03 CDT by Rivera Ascencio
[2022-04-15] MEDS: NA CHLORIDE 0.9% 1,000 ML with POTASSIUM CL 10 MEQ IV SCH ×4 (14:00→22:03)
--- NOTE | 2022-04-15 15:47 | RAD REPORT ---
EXAM DESCRIPTION: CT - Abdomen Pelvis Wo Contrast - 04/15/2022 6:44 am CLINICAL HISTORY: The patient is 52 years old and is Male; diarrhea TECHNIQUE: Axial computed tomography images of the abdomen and pelvis without intravenous contrast. Sagittal and coronal reformatted images were created and reviewed. This CT exam was performed usi ng one or more of the following dose reduction techniques: automated exposure control, adjustment o f the mA and/or kV according to patient size, and/or use of iterative reconstruction technique. COMPARISON: No relevant prior studies available. FINDINGS: LUNG BASES: Unremarkable. No mass. No consolidation. ABDOMEN: LIVER: Homogeneous without focal mass. GALLBLADDER AND BILE DUCTS: The gallbladder is contracted. No calcified gallstones are seen. PANCREAS: Unremarkable. No ductal dilation. SPLEEN: Unremarkable. ADRENALS: Unremarkable. No mass. KIDNEYS AND URETERS: Punctate left intrarenal calcifications are present. There is no hydronephro sis or hydroureter of either kidney. No obstructing renal or ureteral calculus is seen. STOMACH AND BOWEL: The stomach is distended with food contents. The small bowel is normal in irina josefina. Evidence of near-complete colectomy is noted with a right lower quadrant ileostomy in place. The re is no evidence of bowel obstruction. PELVIS: APPENDIX: See above. BLADDER: The bladder is incompletely distended. No stones. REPRODUCTIVE: Calcified stones are present within the prostate. ABDOMEN and PELVIS: INTRAPERITONEAL SPACE: Unremarkable. No free air. No significant fluid collection. BONES/JOINTS: A small cyst is present within the L4 vertebral body. The bones are mildly osteopen ic. SOFT TISSUES: The soft tissues are normal. VASCULATURE: A few calcified phleboliths are present within the pelvis. Minimal atherosclerosis of the vasculature is noted. No abdominal aortic aneurysm. LYMPH NODES: Unremarkable. No enlarged lymph nodes. IMPRESSION: 1. Postsurgical change of the bowel without acute findings. 2. Left nephrolithiasis without obstruction. Electronically signed by: Maya Fairchild MD 04/15/2022 1:08 AM CDT Due to temporary technical issues with the PACS/Fluency reporting system, reports are being signed by the in house radiologists without review as a courtesy to insure prompt reporting. The interpreting radiologist is fully responsible for the content of the report
--- NOTE | 2022-04-15 16:44 | P.PN ---
Date of Service: 04/15/22 Seen and examined. He is complaining of persistent diarrhea. No urine output. He denies abdominal pain No nausea or vomiting. Diagnosis: Acute renal failure: Serum creatinine level is improving slowly. Continue aggressive IV hydration. Continue to monitor renal function. Stool studies. Start antibiotics.
[2022-04-15] MEDS: METRONIDAZOLE 500mg IVPB 500 MG/100 ML BAG IV SCH (17:00)
[2022-04-15] MEDS ORDERED: METRONIDAZOLE 500mg IVPB 500 MG/100 ML BAG IV ONE (17:36)
--- NOTE | 2022-04-15 18:02 | CON ---
Date of Consultation: 04/15/2022 Reason For Consultation: Elevated BUN and creatinine, dehydration, heat exhaustion. History Of Present Illness: This is a 52-year-old gentleman with significant past medical history of hypertension, hypothyroidism, ileostomy. The patient came to the hospital with right-sided abdominal pain with decreased urine output. The patient complaining from nausea and vomiting and increased his ostomy output. Upon arrival to the hospital, found to have elevation in creatinine 2.5 with hyponatremia 132. For that reason, we have been consulted. The patient has been started on IV hydration. The patient is still feeling weak. Past Medical History: Includes; 1. Hypothyroidism. 2. Bipolar. 3. Hypertension. 4. History of small bowel obstruction. Past Surgical History: Includes cholecystectomy, ileostomy. Allergies: NO KNOWN DRUGS ALLERGY. Home Medications: The patient denied taking any nonsteroidal. No IV contrast. Social History: Denied smoking. Occasional alcohol. Denied drugs abuse. Family History: Positive for CAD and hypertension and cancer. Review of Systems: Head and Neck: No red eye. No ear pain. GI: Has nausea, vomiting. Has increased ileostomy output/diarrhea. Turbine Engineer: Not applicable. Respiratory: No shortness of breath. Cardiovascular: No chest pain. : Has decreased urine output. Anuric. Respiratory: No shortness of breath. Cardiovascular: No chest pain. Endocrine: No polydipsia. Skin: No rash. Musculoskeletal: Generalized cramp. Neuro: Has weakness. Physical Examination: Vital Signs: When I saw the patient; blood pressure 89/59, pulse of 68, afebrile. Chest: Clear to auscultation. Heart: S1, S2. Regular. Abdomen: Ileostomy, soft, nontender. No guarding or rebound. Extremities: No edema. Neurologic: Alert. Pleasantly confused. No focality. Laboratory Data: WBC 5.6, H and H 11/33.7. Sodium 137, potassium 3.7, bicarb 26, BUN 37, creatinine 2, GFR of 39, calcium 9.4, phosphorus 5.3, magnesium 2.1, albumin 3.7. Urine not done. Renal ultrasound; small size kidney 8.6/8.9, no obstruction. Reviewing the record for the patient, kidney function back in 2019, creatinine 1.5, GFR of 49. Assessment And Plan: 1. Acute kidney injury on chronic kidney disease, stage 3 secondary to prerenal. Obstructive uropathy and rhabdomyolysis have been ruled out. I am going to go ahead. The patient looked to me still on the dry side. I am going to bolus the patient with another liter of normal saline and we will continue aggressive hydration. We will follow up the patient. 2. Hyponatremia secondary to depletion. We will continue aggressive hydration. 3. Hypokalemia. We will supplement. We will check magnesium within normal limit. 4. Dehydration secondary to heat exhaustion, gastrointestinal loss. We will continue aggressive hydration. 5. Chronic kidney disease, baseline 1.5/with GFR 49 in November 2019, with acute kidney injury as above. We will continue to monitor. We will start IV hydration. Time spent examining the patient [id number], reviewing the data lab and radiology, placing orders, discussing with the patient, explaining risks, benefits, alternatives, discussing with the staff member including nursing discussing with the hospitalist more than 65 minutes. YUN Voice ID: [id number] Report ID: [id number] MTDD
[2022-04-15] MEDS: CIPROFLOXACIN 400mg IV 400 MG/200 ML BAG IV SCH (21:00)
[2022-04-15] MEDS ORDERED: CIPROFLOXACIN 400mg IV 400 MG/200 ML BAG IV ONE (21:56)
[2022-04-16] MEDS ORDERED: MIDODRINE HCL 5 MG TABLET PO ONE (00:35)
[2022-04-16] MEDS: METRONIDAZOLE 500mg IVPB 500 MG/100 ML BAG IV SCH ×3 (02:00→18:42)
[2022-04-16] MEDS ORDERED: METRONIDAZOLE 500mg IVPB 500 MG/100 ML BAG IV ONE ×2 (02:27→09:52)
[2022-04-16 02:53] LABS: Absolute Lymphocytes (CBC) 1.3 K/uL (0.7-4.9); Hematocrit 29.3 % (39.6-49.0); Lymphocytes % 27.2 % (15.3-44.8); MCV 86.6 fL (80-100); MPV 7.8 fL (7.6-11.3); RBC Red Blood Cell Count 3.38 M/uL (4.33-5.43)
[2022-04-16 03:02] LABS: Magnesium 1.8 mg/dL (1.8-2.4); Phosphorus 3.6 mg/dL (2.5-4.9); Potassium 4.1 mmol/L (3.5-5.1); Uric Acid 6.3 mg/dL (3.5-7.2)
[2022-04-16 06:03] VITALS: BMI 19.6
[2022-04-16] MEDS: NA CHLORIDE 0.9% 1,000 ML with POTASSIUM CL 10 MEQ IV SCH ×4 (06:06→14:09)
[2022-04-16] MEDS: ENOXAPARIN 40 MG/0.4 ML SQ SCH (09:00)
[2022-04-16] MEDS: CIPROFLOXACIN 400mg IV 400 MG/200 ML BAG IV SCH ×2 (09:00→21:00)
[2022-04-16 09:38] LABS: Urine Bacteria <20 /HPF (<20); Urine Crystals Unidentified Few /HPF (None Seen); Urine RBC None Seen /HPF (None Seen)
[2022-04-16] MEDS ORDERED: CIPROFLOXACIN 400mg IV 400 MG/200 ML BAG IV ONE (09:52)
[2022-04-16] MEDS ORDERED: ENOXAPARIN 40 MG/0.4 ML SQ ONE (09:52)
--- NOTE | 2022-04-16 14:01 | PN ---
Date of Progress Note: 04/16/2022 Subjective: The patient was admitted with acute kidney injury secondary to prerenal, secondary to GI loss. The patient continued to have diarrhea back. The patient had fluid resuscitation over the night. Kidney function has been improved significantly. Physical Examination: Vital Signs: Blood pressure of 99/60, pulse of 71. Chest: Clear to auscultation. Heart: S1, S2. Regular. Abdomen: Soft, nontender. Ileostomy bag. Extremities: No edema. Neurologic: Alert. No focality. Laboratory Data: Patient WBC 4.9, H and H 9.6/29.3. Sodium 139, potassium 4.1, bicarb 24, BUN 25, creatinine down to 1.2, GFR of 67, uric acid 6.3, calcium 8.2, phosphorus 3.6, magnesium 1.8, albumin of 3. PTH 65. Urinalysis was negative for infection. Assessment And Plan: 1. Acute kidney injury secondary to prerenal, obstructive uropathy has been ruled out, small size kidney bilaterally, the acute kidney injury secondary to prerenal, secondary to GI loss. The patient looked to me still on the dry side. I am going to continue current hydration. 2. Hyponatremia secondary to depletional, recovered, resolved. 3. Hypokalemia. We will continue supplement. 4. Hypomagnesemia. We will supplement. 5. Diarrhea, GI loss. We will follow up with primary. 6. Dehydration with contraction alkalosis and heat exhaustion. Continue IV hydration. 7. Chronic kidney disease, small size kidney, proteinuric, nonnephrotic secondary to hypertension nephrosclerosis with acute kidney injury as above, back to baseline. Time spent examining the patient [id number], reviewing the data lab and radiology, placing orders, discussing with the patient, explaining risks, benefits, alternatives, discussing with the staff member including nursing discussing with the hospitalist more than 35 minutes. YUN Voice ID: [id number] Report ID: [id number] DAAN
--- NOTE | 2022-04-16 14:07 | P.PN ---
Subjective Date of Service: 04/16/22 Chief Complaint: Acute Renal Failure Patient reports persistent diarrhea. He denies any abdominal pain. About 5000 ml output from the colostomy. No fever. Physical Examination - Vital Signs Temperature: 97.8 F Blood Pressure: 128/72 Pulse: 87 Respirations: 12 Pulse Ox (%): 95 Assessment And Plan - Current Problems (Diagnosis) (1) Acute renal failure Current Visit: Yes Status: Acute Qualifiers: Acute renal failure type: unspecified Qualified Code(s): N17.9 - Acute kidney failure, unspecified (2) Hyponatremia Current Visit: Yes Status: Acute (3) Nausea, vomiting, and diarrhea Current Visit: Yes Status: Acute (4) Chronic anemia Current Visit: Yes Status: Acute - Plan Physical Exam General: Alert, In no apparent distress HEENT: Atraumatic, Sclerae nonicteric Respiratory: Clear to auscultation bilaterally, Normal air movement Cardiovascular: Regular rate/rhythm, Normal S1 S2 Gastrointestinal: Normal bowel sounds, Soft and benign, Non-distended, No tenderness. Ileostomy. Integumentary: No rashes Neurological: Normal speech, Normal strength at 5/5 x4 extr. Plan: Acute renal failure resolved. Patient with large ileostomy output. Check stool studies-fecal leukocyte and C. difficile. IV Cipro and Flagyl. Antidiarrheal agent pending stool studies. Continue IV hydration Also encouraged oral rehydration. Continue to monitor renal function. Anemia likely secondary to multiple nutrients malabsorption.
[2022-04-16] MEDS: ONDANSETRON 4 MG/2 ML VIAL IV PRN (18:43)
[2022-04-16 18:58] VITALS: O2SAT 98
[2022-04-17] MEDS: METRONIDAZOLE 500mg IVPB 500 MG/100 ML BAG IV SCH ×3 (00:59→17:10)
[2022-04-17 03:56] LABS: Albumin 2.6 g/dL (3.4-5.0); Magnesium 1.6 mg/dL (1.8-2.4); Phosphorus 2.7 mg/dL (2.5-4.9); Potassium 3.5 mmol/L (3.5-5.1)
[2022-04-17] MEDS ORDERED: MAGNESIUM SULFATE 1 gm IVPB 1 GM/100 ML BAG IV ONE (04:14)
[2022-04-17] MEDS ORDERED: POTASSIUM CL SA 10 MEQ TAB PO ONE (04:15)
[2022-04-17] MEDS: NA CHLORIDE 0.9% 1,000 ML with POTASSIUM CL 10 MEQ IV SCH ×6 (06:15→17:10)
[2022-04-17] MEDS: ONDANSETRON 4 MG/2 ML VIAL IV PRN (09:42)
[2022-04-17] MEDS: CIPROFLOXACIN 400mg IV 400 MG/200 ML BAG IV SCH ×2 (09:43→21:26)
[2022-04-17] MEDS: ENOXAPARIN 40 MG/0.4 ML SQ SCH (09:44)
[2022-04-17 10:55] LABS: C.diff Antigen/Toxin Ag neg : Tox neg (NEG : NEG)
--- NOTE | 2022-04-17 13:44 | PN ---
Subjective: The patient was admitted with acute kidney injury secondary to prerenal, secondary to GI loss with hyponatremia. The patient was started on hydration. Kidney function started being improving significantly. According to him, his stool has been more solid. Physical Examination: Vital Signs: Blood pressure 103/60, pulse of 80, afebrile. The patient had good urine output of more than 600. Still has significant gastric output. Chest: Clear to auscultation. Heart: S1, S2. Regular. Abdomen: Ileostomy. Soft, nontender. Extremities: No edema. Neuro: Alert. No focality. Laboratory Data: WBC 4.9, H and H 9.6/29.3. Sodium 141, potassium 3.5, bicarb 23, BUN 16, creatinine down to 1.1, GFR of 76, calcium 7.7, phosphorus 2.7, magnesium 1.6, albumin 2.6, corrected calcium is 8.9. Current Medications: The patient on include ciprofloxacin, metronidazole, midodrine, Tylenol, Zofran. Assessment And Plan: 1. Acute kidney injury secondary to prerenal, recovered, resolved, looked to me normal volume. I am going to go ahead and decrease IV fluid to 50 per hour. The patient cleared from the Renal standpoint for discharge planning. 2. Hypertension, controlled. Currently, the patient depends on midodrine. 3. Hypokalemia, hypomagnesemia. We will supplement. 4. Increased output from his ileostomy. The patient was started on treatment. We will follow up with primary and GI. Time spent examining the patient [id number], reviewing the data lab and radiology, placing orders, discussing with the patient, explaining risks, benefits, alternatives, discussing with the staff member including nursing discussing with the hospitalist more than 35 minutes. UYN Voice ID: [id number] Report ID: [id number] ADAN
[2022-04-17] MEDS ORDERED: LOPERAMIDE HCL 2 MG CAPSULE PO PRN (18:15)
--- NOTE | 2022-04-17 18:18 | P.PN ---
Subjective Date of Service: 04/17/22 Chief Complaint: Acute Renal Failure Patient state his ileostomy output is more formed but he continues to have copious diarrhea. Physical Examination - Vital Signs Temperature: 97.3 F Blood Pressure: 112/61 Pulse: 65 Respirations: 18 Pulse Ox (%): 99 Assessment And Plan - Current Problems (Diagnosis) (1) Acute renal failure Current Visit: Yes Status: Acute Qualifiers: Acute renal failure type: unspecified Qualified Code(s): N17.9 - Acute kidney failure, unspecified (2) Hyponatremia Current Visit: Yes Status: Acute (3) Nausea, vomiting, and diarrhea Current Visit: Yes Status: Acute (4) Chronic anemia Current Visit: Yes Status: Acute - Plan Physical Exam General: Alert, In no apparent distress HEENT: Atraumatic, Sclerae nonicteric Respiratory: Clear to auscultation bilaterally, Normal air movement Cardiovascular: Regular rate/rhythm, Normal S1 S2 Gastrointestinal: Normal bowel sounds, Soft and benign, Non-distended, No tenderness. Ileostomy. Integumentary: No rashes Plan: Acute renal failure resolved. Patient continues to have copious ileostomy output. fecal leukocyte and C. difficile are negative making infection unlikely. Continue IV Cipro and Flagyl. Start antidiarrheal agent-Imodium Continue IV hydration Also encouraged oral rehydration. Continue to monitor renal function. Anemia likely secondary to multiple nutrients malabsorption. Wound care consult for ileostomy care.
[2022-04-17] MEDS ORDERED: MORPHINE 4 MG/ML SYR IV PRN (21:29)
[2022-04-18] MEDS: METRONIDAZOLE 500mg IVPB 500 MG/100 ML BAG IV SCH ×2 (01:29→09:59)
[2022-04-18 06:31] LABS: Albumin 2.5 g/dL (3.4-5.0); Magnesium 1.8 mg/dL (1.8-2.4); Phosphorus 2.5 mg/dL (2.5-4.9); Potassium 3.7 mmol/L (3.5-5.1)
[2022-04-18] MEDS ORDERED: POTASSIUM CL SA 10 MEQ TAB PO ONE (09:00)
[2022-04-18] MEDS: CIPROFLOXACIN 400mg IV 400 MG/200 ML BAG IV SCH (09:59)
[2022-04-18] MEDS: ENOXAPARIN 40 MG/0.4 ML SQ SCH (10:01)
--- NOTE | 2022-04-18 11:53 | P.PN ---
Subjective Date of Service: 04/18/22 Chief Complaint: Acute Renal Failure Subjective: No new changes Physical Examination - Vital Signs Temperature: 98.1 F Blood Pressure: 96/54 Pulse: 66 Respirations: 18 Pulse Ox (%): 100 - Physical Exam General: Other (appears as his stated age) HEENT: Atraumatic, Normocephalic Neck: Supple, JVD not distended Respiratory: Other (symmetric chest expansion) Cardiovascular: No rubs, No murmurs Gastrointestinal: Soft and benign, No guarding Musculoskeletal: No clubbing Integumentary: No warmth Neurological: Normal tone Urinary: Other (no bladder distention) External genitalia: Deferred Rectal: Deferred Assessment And Plan - Plan 1. Acute kidney injury secondary to prerenal, resolved. [place] po fluid intake. 2. Hypertension. BP currently borderline low. Monitor. 3. Anemia. Monitor H&H. 4. Hypomagnesemia. Improved to serum mag 1.8. Monitor. Replete when necessary. 5. Increased output from his ileostomy. The patient was started on treatment. We will follow up with primary and GI.
[2022-04-18] MEDS: NA CHLORIDE 0.9% 1,000 ML with POTASSIUM CL 10 MEQ IV SCH ×2 (13:52)
--- NOTE | 2022-04-18 15:22 | P.DS ---
Admission Date: 04/15/22 Discharge Date: 04/18/22 Disposition: ROUTINE DISCHARGE Discharge Condition: FAIR Reason for Admission: Acute Renal Failure - Problems (1) Acute renal failure Current Visit: Yes Status: Acute Qualifiers: Acute renal failure type: unspecified Qualified Code(s): N17.9 - Acute kidney failure, unspecified (2) Hyponatremia Current Visit: Yes Status: Acute (3) Nausea, vomiting, and diarrhea Current Visit: Yes Status: Acute (4) Chronic anemia Current Visit: Yes Status: Acute Brief History of Present Illness: Patient is a 52-year-old male with history of hypertension, hypothyroidism and ileostomy status post colectomy who presented to the ED with complaints of ri ght-sided abdominal pain, decreased urine output, increased ostomy output, and vomiting. Patient reports that the symptoms have been occurring for about 2 days now. He states that he is homeless and drinks a lot of water but has not urinated in 2 days. He feels that all of the water he drinks has just resulted in watery stool through his ostomy. His vitals were stable upon arrival to the ED. Initial bladder scan shows 0 mL. Labs significant for creatinine 2.5, sodium 132, BUN 37, CT negative for acute findings. He was given 2 L of fluid. Patient was admitted for further evaluation and treatment. Hospital Course: Admitted to the medical floor and aggressively hydrated with IV fluid. He was seen in consultation by nephrology for acute renal failure The acute renal failure resolved but patient continued to have copious ileostomy output. Fecal leukocyte and C. difficile were done which were negative making infection unlikely. He was treated with IV Cipro and Flagyl for possible infection. Later started on antidiarrheal agent-Imodium to reduce the diarrhea. Patient tolerated his meals, renal function remained stable. Noted his ileostomy prolapsed. He was seen in consultation by surgery Dr. Torres who recommended no surgical intervention. Patient noted to have anemia likely secondary to multiple nutrients malabsorption. Wound care saw patient for ileostomy care. Patient was clinically improved and deemed stable for discharge. Vital Signs/Physical Exam: Temp Pulse Resp BP Pulse Ox 98.1 F 66 18 96/54 L 100 04/18/22 11:53 04/18/22 11:53 04/18/22 11:53 04/18/22 11:53 04/18/22 11:53 General: Alert, In no apparent distress, Oriented x3 HEENT: Mucous membr. moist/pink Neck: Supple, JVD not distended Respiratory: Clear to auscultation bilaterally, Normal air movement Cardiovascular: No edema, Regular rate/rhythm, Normal S1 S2 Gastrointestinal: Soft and benign, Non-distended, Other (Prolapsed right-sided ileostomy) Musculoskeletal: No swelling Integumentary: No rashes Neurological: Normal strength at 5/5 x4 extr Laboratory Data at Discharge: WBC 4.90 K/uL (4.3-10.9) 04/16/22 02:22 Hgb 9.6 g/dL (13.6-17.9) L 04/16/22 02:22 Hct 29.3 % (39.6-49.0) L 04/16/22 02:22 Plt Count 245 K/uL (152-406) 04/16/22 02:22 PT 10.2 SECONDS (9.5-12.5) 04/14/22 23:21 INR 0.93 04/14/22 23:21 Sodium 141 mmol/L (136-145) 04/18/22 05:43 Potassium 3.7 mmol/L (3.5-5.1) 04/18/22 05:43 BUN 13 mg/dL (7-18) 04/18/22 05:43 Creatinine 1.17 mg/dL (0.55-1.3) 04/18/22 05:43 Glucose 91 mg/dL (74-106) 04/18/22 05:43 Uric Acid 6.3 mg/dL (3.5-7.2) 04/16/22 02:22 Phosphorus 2.5 mg/dL (2.5-4.9) 04/18/22 05:43 Magnesium 1.8 mg/dL (1.8-2.4) 04/18/22 05:43 Total Bilirubin 0.6 mg/dL (0.2-1.0) 04/14/22 23:21 AST 24 U/L (15-37) 04/14/22 23:21 ALT 53 U/L (12-78) 04/14/22 23:21 Alkaline Phosphatase 90 U/L (45-117) 04/14/22 23:21 Lipase 200 U/L (73-393) 04/14/22 23:21 Home Medications: Loperamide [Imodium*] 2 mg PO Q4H PRN #30 tab 04/18/22 New Medications: Loperamide [Imodium*] 2 mg PO Q4H PRN #30 tab PRN Reason: Diarrhea Diet: Regular Activity: Ad tomeka Followup: NONE,NONE [Primary Care Provider] - Time spent managing pt's care (in minutes): 37
[2022-04-19 07:17] VITALS: BP 96/54; TEMP 98.1
[2022-04-19 19:01] LABS: Vitamin D 1,25-Dihydroxy Total 16 pg/mL (18-72); Vitamin D,1,25-OH2, D2 <8 pg/mL
== END 2022-04-18 16:57 | disposition home or self-care (01) | DRG 683 ==
LOC: ER 18:53 → ERHOLD 04-15 03:01 → OBSVTOIN 04-15 12:28 → 4TH 04-16 17:42
PROVIDERS: ADMIT Internal Medicine; ATTEND Internal Medicine
DX: N17.9 Acute kidney failure, unspecified (principal); E87.1 Hypo-osmolality and hyponatremia; K94.19 Other complications of enterostomy; I10 Essential (primary) hypertension; E03.9 Hypothyroidism, unspecified; E86.0 Dehydration; E87.6 Hypokalemia; E83.42 Hypomagnesemia; R19.7 Diarrhea, unspecified; D64.9 Anemia, unspecified; R11.2 Nausea with vomiting, unspecified; F31.9 Bipolar disorder, unspecified; Z90.49 Acquired absence of other specified parts of digestive tract; Z59.00 Homelessness unspecified; Z20.822 Contact with and (suspected) exposure to COVID-19
CPT/HCPCS: 36415; 71045; 74176; 76770; 80048; 80069; 80076; 81015; 82652; 83690; 83735; 83970; 84484; 84550; 85025; 85610; 87324; 87811; 89055; 93005; 96360; 96361; 99285; G0378; J0744; J1650; J2405; J3475; J3480; J7030

== ENCOUNTER 2022-04-28 03:22 | Emergency (ER) | payer SELFPAY ==
--- OUTSIDE RECORDS SUMMARY | 2022-04-28 04:03 | XMS REPORT | Continuity of Care Document ---
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 t} [id number] Packet by [employer] 6 gram PwPk 00:00: 00:00 elimination 3D mouth 3 00 :00 due to times intestinal daily ostomy (before meals) for 90 days tamsulosin 2021- No Benign .4mg QD Take 1 Momin rris (FLOMAX) 01-12 prostatic capsule by [employer] 0.4 mg 00:00: 00:00 hyperplasia mouth capsule 00 :00 , daily. unspecified Start on whether 01/12/2022. lower urinary tract symptoms present cyanocobala Yes Malnutritio 1000ug QD Take 1 [place]ne min, 5-21 n due to tablet by [employer] vitamin 00:00: starvation mouth B-12, 1,000 00 daily mcg tablet nutritional 2021- No Malnutritio 1{packa Take 1 Lynne supplemment 01-11- n due to ge} Package by [employer] (BOOST) 00:00: 00:00 starvation mouth 3 oral liquid 00 :00 times daily loperamide 2021- No Disorder of 2mg Take 1 [place] (IMODIUM) 2 01-11 stoma capsule by [employer] mg capsule 00:00: 00:00 mouth once 00 :00 for 1 dose NaCl 0.9% 2021- No 500mL at 999 Univ ers (NS) bolus 09-14 mL/hr, 500 it y of infusion 04:30: 04:20 mL, IV [place] 500 mL 00 :00 Infusion, Medical ONCE, 1 Branch dose, On Thu09/13/21 at 2230, STAT meclizine 2021- No 25mg 25 mg, Unive rs (TRAVEL-EAS 09-1220 Oral, ity of E 22:15: 22:15 ONCE, [...] mg, Slow Un piyush injection 2 09-08 IV Push, ity of mg 02:45: 02:09 ONCE, 1 [place] 00 :00 dose, On Medical Sat Branch 09/07/21 at 2045, STAT ondansetron 2021- No 4mg 4 mg, Slow Univers (ZOFRAN 09-08 IV Push, ity of (PF)) 02:45: 02:09 ONCE, 1 [place] injection 4 00 :00 dose, On Medi mariusz mg Sat Branch 09/07/21 at 2045, JOÃO iopamidol 2021- No [id number] 100mL 100 mL, Univers (ISOVUE 09-08 Intravenou ity o f 370-500 mL) 02:21: 02:21 s, ONCE, 1 [place] injection 00 :00 dose, On Medica l 100 mL Sat Branch 09/07/21 at 2030, Routine traMADoL 50 0 Yes [id number] 50mg Take 1 Univ ers mg tablet 1-15 tablet by ity o f 00:00: mouth [place] 00 every 6 Medical (six) Branch hours as needed for Pain (scale 4-6). Indication s: acute pain ondansetron 2021-0 Yes [id number] 4mg Take 1 Univers 4 mg 1-15 [...] (scale 4-6). Indication s: acute pain ondansetron 2-0 Yes [id number] 4mg Take 1 Univers 4 mg 1-15 [...] Indication s: acute pain ondansetron 2021-0 Yes [id number] 4mg Take 1 Univers 4 mg 1-15 [...] Indication s: acute pain ondansetron 2021-0 Yes [id number] 4mg Take 1 Univers 4 mg 1-15 [...] Indication s: acute pain ondansetron 2021-0 Yes [id number] 4mg Take 1 Univers 4 mg 1-15 tablet by ity of disintegrat 00:00: mouth [place] ing tablet 00 every 8 Medica l (eight) Branch hours as needed for Nausea and Vomiting (N/V). traMADoL 50 2021-0 2021- No [id number] 50mg Take 1 Uni vers mg tablet 1-15 08-10 tablet by ity of 00:00: 00:00 mouth [place] 00 :00 every 6 Medical (six) Branch hours as needed for Pain (scale 4-6). Indication s: acute pain ondansetron 0 2021- No [id number] 4mg Take 1 Univers 4 mg 1-15 [...] [place] 00 daily. Medical Branch vitamin 2021-0 2021- No 1000ug Take 1 Unive rs B-12 1,000 1-13 08-10 tablet by ity of mcg tablet 00:00: 00:00 mouth [place] 00 :00 daily. Medical Branch acetaminoph 2021-0 Yes 650mg Take 2 Uni vers en 325 mg 1-12 tablets by ity of tablet 00:00: mouth 00 every 6 Medical (six) Branch hours as needed for Pain (scale 1-3). ibuprofen 2022-0 Yes 600mg Take 1 Unive rs 600 mg 1-12 tablet by ity of tablet 00:00: mouth (three) Medical times Branch daily with meals. loperamide 2022-0 Yes [id number] 2mg Take 1 Univers 2 mg 1-12 [...] Branch daily with meals. loperamide 2022-0 Yes [id number] 2mg Take 1 Univers 2 mg 1-12 [...] Branch daily with meals. loperamide 2022-0 Yes [id number] 2mg Take 1 Univers 2 mg 1-12 [...] Branch daily with meals. loperamide 2022-0 Yes [id number] 2mg Take 1 Univers 2 mg 1-12 [...] Branch daily with meals. loperamide 2022-0 Yes [id number] 2mg Take 1 Univers 2 mg 1-12 [...] Branch daily with meals. loperamide 2022-0 Yes [id number] 2mg Take 1 Univers 2 mg 1-12 capsule by ity of capsule 00:00: mouth (two) Medical times Branch daily. psyllium 2022-0 Yes 1{packe Take 1 Univ ers 3.4 gram 1-12 t} Packet by ity of packet 00:00: mouth (two) Medical times Branch daily. acetaminoph 2022-0 Yes 650mg Take 2 Uni vers en 325 mg 1-12 tablets by ity of tablet 00:00: mouth 00 every 6 Medical (six) Branch hours as needed for Pain (scale 1-3). ibuprofen 2022-0 Yes 600mg Take 1 Unive rs 600 mg 1-12 tablet by ity of tablet 00:00: mouth (three) Medical times Branch daily with meals. loperamide 2022-0 Yes [id number] 2mg Take 1 Univers 2 mg 1-12 [...] Branch daily with meals. loperamide 2022-0 Yes [id number] 2mg Take 1 Univers 2 mg 1-12 [...] by ity of tablet 00:00: mouth 3 [place] 00 (three) Medical times Branch daily with meals. loperamide 2022-0 Yes [id number] 2mg Take 1 Univers 2 mg 1-12 capsule by ity of capsule 00:00: mouth 2 [place] 00 (two) Medical times Branch daily. psyllium 2022-0 Yes 1{packe Take 1 Univ ers 3.4 gram 1-12 t} Packet by ity of packet 00:00: mouth 2 [place] 00 (two) Medical times Branch daily. acetaminoph 2022-0 2022- No 650mg Take 2 Un piyush en 325 mg 12 08-10 tablets by ity of tablet 00:00: 00:00 mouth [place] 00 :00 every 6 Medical (six) Branch hours as needed for Pain (scale 1-3). ibuprofen 2021-0 2022- No 600mg Take 1 Univ ers 600 mg -12 08-10 tablet by ity of tablet 00:00: 00:00 mouth 3 [place] 00 :00 (three) Medical times Branch daily with meals. loperamide 2022-0 2022- No [id number] 2mg Take 1 Univers 2 mg 1-12 08-10 capsule by ity of capsule 00:00: 00:00 mouth 2 [place] 00 :00 (two) Medical times Branch daily. psyllium 2022-0 2022- No 1{packe Take 1 Uni vers 3.4 gram 1-12 08-10 t} Packet by ity o f packet 00:00: 00:00 mouth 2 [place] 00 :00 (two) Medical times Branch daily. vitamin 2022-0 Yes 1000ug 1,000 mcg, Un piyush B-12 09-03 Oral, ity of (CYANOCOBAL 20:00: DAILY, [place] 00 First dose Medical tablet on Tue Branch 1,000 mcg 09/03/21 at 1400, Until Discontinu ed, Routine vitamin 2022-0 Yes 1000ug 1,000 mcg, Un piyush B-12 09-03 Oral, ity of (CYANOCOBAL 20:00: DAILY, [place] 00 First dose Medical tablet on e Branch 1,000 mcg 09/03/21 at 1400, Until Discontinu ed, Routine ibuprofen 2021- No 600mg 600 mg, Uni vers (IBU) 09-03 Oral, TID ity of tablet 600 18:00: 17:59 MEALS, 15 [place] mg 00 :00 doses, Medical First dose Branch on Thu09/03/21 at 1200, Last dose on Thu09/08/21 at 0800, Routine ibuprofen 2021- No 600mg 600 mg, Uni vers (IBU) 09-03 Oral, TID ity of tablet 600 18:00: 17:59 MEALS, 15 [place] mg 00 :00 doses, Medical First dose Branch on Thu09/03/21 at 1200, Last dose on Thu09/08/21 at 0800, Routine traMADoL Yes 50mg 50 mg, Univers (ULTRAM) 09-03 Oral, ity of tablet 50 14:28: Q6HPRN, [place] mg 55 Starting Medical on Thu [place] 09/03/21 at 0828, Until Discontinu ed, Routine, Pain (scale 4-6) traMADoL Yes 50mg 50 mg, Univers (ULTRAM) 09-03 Oral, ity of tablet 50 14:28: Q6HPRN, [place] mg 55 Starting Medical on [facility] 09/03/21 at 0828, Until Discontinu ed, Routine, Pain (scale 4-6) lidocaine-e 2021- No PRN, Unive rs pinephrine 09-03 Starting ity of (XYLOCAINE 14:15: 15:38 on Thu s WITH 00 :29 09/03/21 at Medical [...] Thu09/03/21 at 0826, Routine sulfur 2021- No [id number] 5mL 5 mL, Unive rs hexafluorid 1-10 01-10 Intravenou i ty of e microsphr 21:30: 21:30 s, ONCE, 1 [place] (LUMASON) 00 :00 dose, On Medica l injection 5 Mon Branch mL 09/02/21 at 1530, Routine
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 : WALKERLazCAMILA NaCl 0.9% 2-0 2022- No 500mL at 999 Univ ers (NS) bolus 09-01-09 mL/hr, 500 it y of infusion 23:15: 22:18 mL, IV [place] 500 mL 00 :00 Piggyback, Medical ONCE, 1 Branch dose, On 09/01/21 at 1715, JOÃO NaCl 0.9% 2021-0 2021- No 1000mL at 75 Univ ers (NS) IV 09-01-09 mL/hr, IV ity of infusion 14:00: 16:07 Infusion, [place]avi as 1,000 mL 00 :36 CONTINUOUS Medic al , Starting Branch on 09/01/21 at 0800, Until [place] 09/01/21 at 1007, Routine NaCl 0.9% 2021-0 2021- No 1000mL at 999 Uni vers (NS) bolus 08-31 01-08 mL/hr, ity of infusion 15:15: 15:11 1,000 mL, [place] 1,000 mL 00 :00 IV Medical Infusion, Branch ONCE, 1 dose, On 08/31/21 at 0915, STAT pantoprazol 2022-0 Yes 40mg 40 mg, Univ ers e 1-08 Oral, ity of (PROTONIX) 15:00: DAILY, [place] EC tablet 00 First dose Medi mariusz 40 mg on Sat Branch 08/31/21 at 0900, Until Discontinu ed, Routine pantoprazol 2022-0 Yes 40mg 40 mg, Univ ers e 1-08 Oral, ity of (PROTONIX) 15:00: DAILY, [place] EC tablet 00 First dose Medi mariusz 40 mg on Sat Branch 08/31/21 at 0900, Until Discontinu ed, Routine loperamide 2022-0 Yes 2mg 2 mg, Univer s (IMODIUM 1-08 Oral, BID, ity o f A-D) 14:00: First dose [place] capsule 2 00 on Sat Medical mg 08/31/21 at Branch 0800, Until Discontinu ed, Routine psyllium 2022-0 Yes 1{packe 1 Packet, U nivers (METAMUCIL [...] at 0800, Until Discontinu ed, Routine loperamide 2021-0 Yes 2mg 2 mg, Univer s (IMODIUM 1-08 Oral, BID, ity o f A-D) 14:00: First dose [place] capsule 2 00 on Sat Medical mg 08/31/21 at Branch 0800, Until Discontinu ed, Routine psyllium 2022-0 Yes 1{packe 1 Packet, U nivers (METAMUCIL [...] Until Discontinu ed, Routine NaCl 0.9% 2021-0 2022- No at 125 Unive rs (NS) IV 1-08 01-08 mL/hr, IV ity of infusion 07:15: 08:03 Infusion, [place] 00 :43 CONTINUOUS Medical , Starting Branch on 08/31/21 at 0115, Until 08/31/21 at 0203, Routine acetaminoph 2022-0 Yes 650mg 650 mg, Un piyush en 1-08 Oral, ity of (TYLENOL) 06:03: Q6HPRN, [place] tablet 650 36 Starting Medic al mg on Sat Branch 08/31/21 at 0003, Until Discontinu ed, Routine, Pain (scale 1-3) acetaminoph Yes 650mg 650 mg, Un piyush en 08 Oral, ity of (TYLENOL) 06:03: Q6HPRN, [place] tablet 650 36 Starting Medic al mg on Sat Branch 08/31/21 at 0003, Until Discontinu ed, Routine, Pain (scale 1-3) NaCl 0.9% No 1000mL at 999 Uni vers (NS) bolus 08-3108 mL/hr, ity of infusion 01:45: 02:43 1,000 mL, [place] 1,000 mL 00 :00 IV Medical Infusion, Branch ONCE, 1 dose, On 08/30/21 at 1945, STAT albuterol 2021- No 8{puff} 8 Puff, U nivers (VENTOLIN) 08-30 Inhalation it y of inhaler 8 01:00: 00:20 , ONCE, 1 [place] Puff 00 :00 dose, On Medical [place] 08/29/21 Branch at 1900, JOÃO acetaminoph No 1000mg 1,000 mg, Univers en 08-30 Oral, ity of (TYLENOL) 00:30: 00:20 ONCE, 1 [place] tablet 00 :00 dose, On Medical 1,000 mg [facility] 08/29/21 Branc h at 1830, Routine lidocaine No 10mL 10 mL, Unive rs 2% viscous 08-30 Oral, ity of (LIDOCAINE 00:30: 00:20 ONCE, 1 [place] VISCOUS) 2 00 :00 dose, On Medic al % solution [facility] 08/29/21 Bra nch 10 mL at 1830, JOÃO benzonatate 2021- No 100mg 100 mg, U nivers (TESSALON 08-30 Oral, ity of PERLES) 00:30: 00:22 ONCE, 1 [place] capsule 100 00 :00 dose, On Medi mariusz mg [place] 08/29/21 Branch at 1830, Routine No known No Univers medications 06 ity of 19:35: [place] 26 Medical Branch NaCl 0.9% 2020-08 Yes 10mL 10 mL, Univer s (NS) 2-12 Slow IV ity of injection 19:13: Push, PRN, [place] 10 mL 37 Starting Medical on [place] 08/04/21 at 1313, Until Discontinu ed, Routine, line maintenanc e lidocaine 2020-08 Yes 5mL 5 mL, Univers 1% (PF) 212 Subcutaneo ity of (XYLOCAINE) 19:13: us, PRN, [place] injection 5 37 Starting Medi mariusz mL on [place] Branch 08/04/21 at 1313, Until Discontinu ed, Routine, Local anesthesia dextrose 5% 2020-08 Yes IV Univer s and 0.45% 212 Infusion, ity o f NaCl with 16:00: CONTINUOUS [place] KCl 40 mEq 00 , Starting Med ical 1,000 mL IV on [place] Branch Solution 08/04/21 at 1000, Until Discontinu [...] Yes 2{packe 2 Packet, U nivers (METAMUCIL 10-02 t} Oral, TID, ity of FIBER 14:00: First dose [place] SINGLES) 00 (after Medical 3.4 gram last Branch packet 2 modificati Packet on) on Thu08/01/21 at 0800, Until Discontinu ed, Routine diphenoxyla 2020-08- No 1{tbl} 1 tablet, Univers te-atropine 10-02 Oral, TID, i ty of (LOMOTIL) 14:00: [...] Medical mg last Branch modificati on) on Thu08/01/21 at 0730, Until Discontinu ed, Routine magnesium 2020-08 No 2g 2 g, IV Univ ers sulfate in 10-02 Piggyback, it y of water 2 13:00: 14:28 ONCE, 1 [place] gram/50 mL 00 :00 dose, On Medic al (4 %) [place] Branch infusion 2 08/01/21 at g 0700, Routine diphenoxyla 2020-08- No 1{tbl} 1 tablet, Univers te-atropine 10-01 Oral, BID, i ty of (LOMOTIL) 15:30: 13:19 First dose [place] 2.5-0.025 00 :28 on Wed Medical mg tablet 1 07/31/21 at Br anch tablet 0930, Until Discontinu ed, Routine iopamidol 2020-08- No [id number] 100mL 100 mL, Univers (ISOVUE 10-01 Intravenou ity o f 370-500 mL) 05:14: 05:14 s, ONCE, 1 [place] injection 00 :00 dose, On Medica l 100 mL Tue Branch 07/30/21 at 2315, Routine morpHINE 2020-08 No 2mg 2 mg, Slow Un piyush injection 2 09-30 IV Push, ity of mg 17:00: 17:10 ONCE, 1 [place] 00 :00 dose, On Medical [facility] 07/30/21 at 1115, Routine enoxaparin 2020-08 Yes 40mg 40 mg, Unive rs (LOVENOX) 09-30 Subcutaneo ity of injection 15:00: us, DAILY, [place] 40 mg 00 First dose Medical (after Branch last modificati on) on [facility] 07/30/21 at 0900, Until Discontinu ed, Routine pantoprazol 2020-08 No 40mg 40 mg, Uni vers e 09-30-10 Oral, ity of (PROTONIX) 15:00: 13:40 DAILY, [place] EC tablet 00 :20 First dose Medi mariusz 40 mg on [facility] 07/30/21 at 0900, Until Discontinu ed, Routine loperamide 2020-08 No 4mg 4 mg, Unive rs (IMODIUM 09-30 Oral, TID, ity of A-D) 14:00: 13:19 First dose [place] capsule 4 00 :28 on [facility] Medical mg 07/30/21 at Branch 0800, Until Discontinu ed, Routine psyllium 2020-08- No 1{packe 1 Packet, Univers (METAMUCIL 09-30 t} Oral, TID, it y of FIBER 14:00: 13:19 First dose [place] SINGLES) 00 :28 on [facility] Medical 3.4 gram 07/30/21 at [facility] h packet 1 0800, Packet Until Discontinu ed, Routine lactated 2020-08- No 1000mL at 75 Unive rs ringers IV 09-30 12-10 mL/hr, ity of infusion 07:30: 13:59 1,000 mL, [place] 1,000 mL 00 :30 IV Medical Infusion, Branch CONTINUOUS , Starting on Thu07/30/21 at 0130, Until Thu08/02/21 at 0759, Routine NaCl 0.9% 2020-08- No 1000mL at [...] 2-07 Oral, ity of (TYLENOL) 06:10: Q6HPRN, [place] tablet 650 40 Starting Medic al mg on Thu Branch 07/30/21 at 0010, Until Discontinu ed, Routine, Pain (scale 1-3) morpHINE 2020-08 4mg 4 mg, Slow Un piyush injection 4 2-07 12-07 IV Push, ity of mg 03:30: 02:55 ONCE, 1 [place] 00 :00 dose, On Medical Mon Branch 07/29/21 at 2130, STAT psyllium 2020-08 Yes [id number] 1{packe Take 1 Univers 3.4 gram 2-03 t} Packet by ity of packet 00:00: mouth 3 [place] 00 (three) Medical times Branch daily. loperamide 2020-08 Yes [id number] 4mg Take 2 Univers 2 mg 2-03 capsules ity of capsule 00:00: by mouth 3 [place] 00 (three) Medical times Branch daily. pantoprazol 2020-08 Yes [id number] 40mg Take 1 Univers e 40 mg EC 2-03 tablet by ity of tablet 00:00: mouth [place] 00 daily. Medical Branch psyllium 2020-08 Yes [id number] 1{packe Take 1 Univers 3.4 gram 2-03 t} Packet by ity of packet 00:00: mouth 3 [place] 00 (three) Medical times Branch daily. loperamide 2020-08 Yes [id number] 4mg Take 2 Univers 2 mg 2-03 capsules ity of capsule 00:00: by mouth 3 [place] 00 (three) Medical times Branch daily. pantoprazol 2020-08 Yes [id number] 40mg Take 1 Univers e 40 mg EC 2-03 tablet by ity of tablet 00:00: mouth [place] 00 daily. Medical Branch psyllium 2020-08- No [id number] 1{packe Take 1 Univers 3.4 gram 2-03 12-13 t} Packet by ity o f packet 00:00: 00:00 mouth 3 [place] 00 :00 (three) Medical times Branch daily. loperamide 2020-08- No [id number] 4mg Take 2 Univers 2 mg 2-03 12-13 capsules ity of capsule 00:00: 00:00 by mouth 3 [place] 00 :00 (three) Medical times Branch daily. pantoprazol 2020-08- No [id number] 40mg Take 1 Univers e 40 mg EC 2-03 12-13 tablet by ity of tablet 00:00: 00:00 mouth [place] 00 :00 daily. Medical Branch psyllium 2020-08- No [id number] 1{packe Take 1 Univers 3.4 gram 2-03 12-03 t} Packet by ity o f packet 00:00: 00:00 mouth 3 [place] 00 :00 (three) Medical times Branch daily for 90 days. loperamide 2020-08- No [id number] 4mg Take 2 Univers 2 mg 2-03 12-03 capsules ity of capsule 00:00: 00:00 by mouth 3 [place] 00 :00 (three) Medical times Branch daily for 90 days. pantoprazol 2020-08- No [id number] 40mg Take 1 Univers e 40 mg EC 2-03 12-03 tablet by ity of tablet 00:00: 00:00 mouth [place] 00 :00 daily for Medical 90 days. Branch psyllium 2020-08- No [id number] 1{packe Take 1 Univers 3.4 gram 2-03 12-03 t} Packet by ity o f packet 00:00: 00:00 mouth 3 [place] 00 :00 (three) Medical times Branch daily. pantoprazol 2020-08- No [id number] 40mg Take 1 Univers e 40 mg EC 09-26 tablet by ity of tablet 00:00: 00:00 mouth [place] 00 :00 daily. Medical Branch loperamide 2020-08- No [id number] 4mg Take 2 Univers 2 mg 09-26 capsules ity of capsule 00:00: 00:00 by mouth 3 [place] 00 :00 (three) Medical times Branch daily. psyllium 2020-08- No [id number] 1{packe Take 1 Univers 3.4 gram 09-26 t} Packet by ity o f packet 00:00: 00:00 mouth 3 [place] 00 :00 (three) Medical times Branch daily. loperamide 2020-08- No [id number] 4mg Take 2 Univers 2 mg 09-26 capsules ity of capsule 00:00: 00:00 by mouth 3 [place] 00 :00 (three) Medical times Branch daily. pantoprazol 2020-08- No [id number] 40mg Take 1 Univers e 40 mg EC 09-26 tablet by ity of tablet 00:00: 00:00 mouth [place] 00 :00 daily. Medical Branch pantoprazol 2020-08 Yes 40mg 40 mg, Univ ers e 2- Oral, ity of (PROTONIX) 15:00: DAILY, [place] EC tablet 00 First dose Medi mariusz 40 mg on [facility] Branch 07/25/21 at 0900, Until Discontinu ed, Routine psyllium 2020-08 Yes 1{packe 1 Packet, U nivers (METAMUCIL 2 t} Oral, TID, ity of FIBER 14:00: First dose [place] SINGLES) 00 (after Medical 3.4 gram last Branch packet 1 modificati Packet on) on [facility] 07/25/21 at 0800, Until Discontinu ed, Routine diphenoxyla 2020-08- No 1{tbl} 1 tablet, Univers te-atropine 207-26 Oral, BID, i ty of (LOMOTIL) 14:00: 12:39 First dose [place] 2.5-0.025 00 :48 on [place] Medical mg tablet 1 07/25/21 at Br anch tablet 0800, Until Discontinu ed, Routine NaCl 0.9% 2020-08 Yes 1000mL at 999 Univ ers (NS) bolus 2-02 mL/hr, ity of infusion 13:20: 1,000 mL, [place] 1,000 mL 46 IV Medical Piggyback, Branch PRN, Starting on Thu07/25/21 at 0720, Until Discontinu ed, Routine NaCl 0.9% 2020-08- No 1000mL at 999 Uni vers (NS) IV 2 12-01 mL/hr, IV ity of infusion 22:45: 21:43 Infusion, [place] 1,000 mL 00 :00 ONCE, 1 Medical dose, On Thu07/24/21 at 1645, Routine lactated 2020-08- No 500mL at 999 Unive rs ringers IV 09-24 12- mL/hr, 500 it y of infusion 17:15: [...] at 0800, Until Discontinu ed, Routine psyllium 2020-08- No 1{packe 1 Packet, Univers (METAMUCIL 09-24 t} Oral, BID, it y of FIBER 14:00: 12:09 First dose [place] SINGLES) 00 :58 (after Medical 3.4 gram last Branch packet 1 modificati Packet on) on Thu07/24/21 at 0800, Until Discontinu ed, Routine enoxaparin 2020-08 Yes 40mg 40 mg, Unive rs (LOVENOX) 1-30 Subcutaneo ity of injection 23:00: us, DAILY, [place] 40 mg 00 First dose Medical on Thu07/23/21 at 1700, Until Discontinu ed, Routine psyllium 2020-08- No 1{packe 1 Packet, Univers (METAMUCIL 09-22 t} Oral, ity of FIBER 15:00: 11:41 DAILY, [place] SINGLES) 00 :12 First dose Medic al 3.4 gram on Thu Branch packet 1 07/23/21 Packet at 0900, Until [...] at 0145, Until Discontinu ed D5W 0.45% 2020-08 No IV Univers NaCl 09-22 Infusion, ity of (1/2NS) 1 L 07:45: 16:08 at 125 Javi as + KCL 20 00 :16 mL/hr, Medical mEq CONTINUOUS Branch , Starting on Thu07/23/21 at 0145, Until Thu07/24/21 at 1008, Routine ondansetron 2020-08 Yes 4mg 4 mg, Slow Univers (ZOFRAN 09-22 IV Push, ity of (PF)) 07:31: Administer [place] injection 4 37 over 15 Medic al mg Minutes, Branch Q6HPRN, Starting on Thu07/23/21 at 0131, Until Discontinu ed, Routine, Nausea and Vomiting (N/V) acetaminoph 2020-08 Yes 650mg 650 mg, Un piyush en 30 Oral, ity of (TYLENOL) 07:31: Q6HPRN, [place] tablet 650 37 Starting Medic al mg on Thu Branch 07/23/21 at 0131, Until Discontinu ed, Routine, Pain (scale 1-3) NaCl 0.9% 2020-08- No 1000mL at 999 Uni vers (NS) bolus 1-30 11-30 mL/hr, ity of infusion 06:46: 07:00 1,000 mL, [place] 1,000 mL 00 :00 IV Medical Piggyback, [place] ONCE, 1 dose, On Thu07/23/21 at 0100, STAT heparin 2020-08 Yes 5000U 5,000 Univers (porcine) 0-09 Units, ity of injection 22:00: Subcutaneo [place] 5,000 Units 00 us, Q8H, Medi mariusz First dose Branch on 06/01/21 at 1700, Until Discontinu ed, Routine pantoprazol 2020-08 Yes 40mg 40 mg, Univ ers e 0-09 Oral, BID, ity of (PROTONIX) 14:45: First dose [place] EC tablet 00 on [facility] Medical 40 mg 06/01/21 at Branch 0945, Until Discontinu ed, Routine psyllium 2020-08 Yes 1{packe 1 Packet, U nivers (METAMUCIL 0-09 t} Oral, ity of FIBER 14:45: DAILY, [place] SINGLES) 00 First dose Medic al 3.4 gram on [facility] Branch packet 1 06/01/21 at Packet 0945, Until Discontinu ed, Routine traMADoL 2020-08 Yes 50mg 50 mg, Univers (ULTRAM) 0-09 Oral, ity of tablet 50 14:39: Q6HPRN, [place] mg 34 Starting Medical on Sat Branch 06/01/21 at 0939, Until Discontinu ed, Routine, Pain (scale 4-6) HYDROcodone 2020-08 Yes 1{tbl} 1 tablet, Univers -acetaminop 0-09 Oral, ity of hen (NORCO 14:39: Q6HPRN, [place] 5) 5-325 mg 16 Starting Medi mariusz tablet 1 on [facility] Branch tablet 06/01/21 at 0939, Until Discontinu ed, Routine, Pain (scale 7-10) ondansetron 2020-08 Yes 4mg 4 mg, Slow Univers (ZOFRAN 0-09 IV Push, ity of (PF)) 14:38: Q6HPRN, [place] injection 4 58 Starting Medi mariusz mg on Sat Branch 06/01/21 at 0938, Until Discontinu ed, Routine, Nausea and Vomiting (N/V) acetaminoph 2020-08 Yes 650mg 650 mg, Un piyush en 0-09 Oral, ity of (TYLENOL) 14:36: Q6HPRN, [place] tablet 650 07 Starting Medic al mg on Sat Branch 06/01/21 at 0936, Until Discontinu ed, [...] Thu05/31/21 at 2045, STAT iopamidol 2020-08- No [id number] 100mL 100 mL, Univers (ISOVUE 0-09 10-09 Intravenou ity o f 370-500 mL) 00:30: 00:30 s, ONCE, 1 [place] injection 00 :00 dose, On Medica l 100 mL Fri Branch 05/31/21 at 1930, Routine morpHINE 2020-08- No 4mg 4 mg, Slow Un piyush injection 4 0-08 10-08 IV Push, ity of mg 23:30: 22:48 ONCE, 1 [place] 00 :00 dose, On Medical Fri Branch 05/31/21 at 1830, STAT ondansetron 2020-08- No 8mg 8 mg, Slow Univers (ZOFRAN 0-08 10-08 IV Push, ity of (PF)) 23:30: 22:47 ONCE, 1 [place] injection 8 00 :00 dose, On Medi mariusz mg Fri Branch 05/31/21 at 1830, JOÃO NaCl 0.9% 2020-08- No 500mL at 999 Univ ers (NS) bolus 0-08 10-08 mL/hr, 500 it y of infusion 23:30: 23:59 mL, IV [place] 500 mL 00 :00 Piggyback, [facility] ONCE, 1 Branch dose, On Thu05/31/21 at 1830, STAT psyllium Yes [id number] 1{packe Take 1 Univers 3.4 gram 9-29 t} Packet by ity of packet 00:00: mouth [place] 00 daily. [facility] Branch psyllium 0 Yes [id number] 1{packe Take 1 Univers 3.4 gram 9-29 t} Packet by ity of packet 00:00: mouth [place] 00 daily. [facility] Branch psyllium 0 Yes [id number] 1{packe Take 1 Univers 3.4 gram 9-29 t} Packet by ity of packet 00:00: mouth [place] 00 daily. [facility] psyllium 0 Yes [id number] 1{packe Take 1 Univers 3.4 gram 9-29 t} Packet by ity of packet 00:00: mouth [place] 00 daily. [facility] psyllium Yes [id number] 1{packe Take 1 [facility] 3.4 gram 9-29 t} Packet by ity of packet 00:00: mouth [place] 00 daily. [facility] psyllium 202- No [id number] 1{packe Take 1 [facility] 3.4 gram 9-29 12-13 t} Packet by ity o f packet 00:00: 00:00 mouth [place] 00 :00 daily. [facility] Branch enoxaparin Yes 40mg 40 mg, Unive rs (LOVENOX) 05-21 Subcutaneo ity of injection 14:00: [place], DAILY, [place] 40 mg 00 First dose Medical on Thu Branch 05/21/21 at 0900, Until Discontinu ed, Routine ondansetron Yes 4mg 4 mg, Slow Univers (ZOFRAN 05-21 IV Push, ity of (PF)) 00:15: Q6HPRN, [place] injection 4 13 Starting Medi mariusz mg on Thu Branch 05/20/21 at 1915, Until Discontinu ed, Routine, Nausea and Vomiting (N/V) HYDROcodone Yes 1{tbl} 1 tablet, Univers -acetaminop 05-21 Oral, ity of hen (NORCO) 00:15: Q6HPRN, [place] 10-325 mg 10 Starting Medica l tablet 1 on Thu Branch tablet 05/20/21 at 1915, Until Discontinu ed, Routine, Pain (scale 7-10) traMADoL 2020- No 50mg 50 mg, Univer s (ULTRAM) 05-21 0930 Oral, ity of tablet 50 00:15: 00:14 Q8HPRN, [place] mg 07 :07 Starting Medical on Thu Branch 05/20/21 at 1915, Until Thu05/22/21 at 1914, Routine, Pain (scale 4-6) acetaminoph Yes 650mg 650 mg, Un piyush en 05-21 Oral, ity of (TYLENOL) 00:15: Q6HPRN, [place] tablet 650 01 Starting Medic al mg on Thu Branch 05/20/21 at 1915, Until Discontinu ed, Routine, Pain (scale 1-3) D5W 0.45% Yes IV Univers NaCl 05-20 Infusion, ity of (1/2NS) 1 L 23:30: at 125 [place] + KCL 20 00 mL/hr, Medical mEq CONTINUOUS Branch , Starting on Thu05/20/21 at 1830, Until Discontinu ed, Routine psyllium Yes 1{packe 1 Packet, U nivers (METAMUCIL 05-20 t} Oral, ity of FIBER 22:15: DAILY, [place] SINGLES) 00 First dose Medic al 3.4 [...] 00 :00 dose, On Medi mariusz mg [facility] 05/20/21 at 1600, JOÃO morpHINE 2020- No 4mg 4 mg, Slow Un piyush injection 4 05-20 IV Push, ity of mg 21:00: 20:15 ONCE, 1 [place] 00 :00 dose, On Medical [facility] 05/20/21 at 1600, STAT NaCl 0.9% 2020- No 500mL at 999 Univ ers (NS) bolus 05-20 mL/hr, 500 it y of infusion 21:00: 21:00 mL, IV [place] 500 mL 00 :00 Piggyback, Medical ONCE, 1 [place] dose, On [facility] 05/20/21 at 1600, STAT pantoprazol Yes 40mg 40 mg, Univ ers e 9-17 Oral, BID, ity of (PROTONIX) 01:00: First dose [place] EC tablet 00 on [facility] Medical 40 mg 05/09/21 at [place] 1999, Until Discontinu ed, Routine pantoprazol Yes 40mg 40 mg, Univ ers e 9-17 Oral, BID, ity of (PROTONIX) 01:00: First dose [place] EC tablet 00 on [facility] 40 mg 05/09/21 at [place] 1999, Until Discontinu ed, Routine pantoprazol 2020- No [id number] 40mg Take 1 Univers e 40 mg EC 9-16 11-16 tablet by ity of tablet 00:00: 05:59 mouth 2 [place] 00 :00 (two) Medical [facility] daily pantoprazol 2020- No [id number] 40mg Take 1 Univers e 40 mg EC 9-16 11-16 tablet by ity of tablet 00:00: 05:59 mouth 2 [place] 00 :00 (two) Medical [facility] daily pantoprazol 2020- No [id number] 40mg Take 1 Univers e 40 mg EC 9-16 11-16 tablet by ity of tablet 00:00: 05:59 mouth 2 [place] 00 :00 (two) Medical [facility] daily pantoprazol 2020- No [id number] 40mg Take 1 Univers e 40 mg EC 9-16 11-16 tablet by ity of tablet 00:00: 05:59 mouth 2 [place] 00 :00 (two) Medical times Branch daily pantoprazol 2020-0 2020- No [id number] 40mg Take 1 Univers e 40 mg EC 9-16 11-16 tablet by ity of tablet 00:00: 05:59 mouth 2 [place] 00 :00 (two) Medical times Branch daily pantoprazol 2020-0 2020- No [id number] 40mg Take 1 Univers e 40 mg EC 9-16 11-16 tablet by ity of tablet 00:00: 05:59 mouth 2 [place] 00 :00 (two) Medical times Branch daily pantoprazol 2020- No [id number] 40mg Take 1 Univers e 40 mg EC 9-16 11-16 tablet by ity of tablet 00:00: 05:59 mouth 2 [place] 00 :00 (two) Medical times Branch daily enoxaparin Yes 40mg 40 mg, Unive rs (LOVENOX) 9-15 Subcutaneo ity of injection 16:15: us, Q24H, [place] 40 mg 00 First dose Medical on Thu05/08/21 at 1115, Until Discontinu ed, Routine enoxaparin Yes 40mg 40 mg, Unive rs (LOVENOX) 9-15 Subcutaneo ity of injection 16:15: us, Q24H, [place] 40 mg 00 First dose Medical on Thu05/08/21 at 1115, Until Discontinu ed, Routine D5W-LR IV 2020- No 1000mL at 75 Univ ers infusion 05-08-16 mL/hr, IV ity o f 1,000 mL [...] No 1000mL at 125 Uni vers infusion 9-15 09-15 mL/hr, IV ity o f 1,000 [...] No 1000mL at 70 Univ ers infusion 05-08 09-15 mL/hr, IV ity o f 1,000 mL 05:30: 12:03 Infusion, [place] 00 :16 CONTINUOUS Medical , Starting Branch on Thu05/08/21 at 0030, Until Thu05/08/21 at 0703, Routine D5W-LR IV 2020- No 1000mL at 70 Univ ers infusion 05-08 09-15 mL/hr, IV ity o f 1,000 mL 05:30: 12:03 Infusion, [place] 00 :16 CONTINUOUS Medical , Starting Branch on Thu05/08/21 at 0030, Until Thu05/08/21 at 0703, Routine pantoprazol 2020- No 40mg 40 mg, Uni vers e 05-08 Slow IV ity of (PROTONIX) 04:30: 14:42 Push, [place] injection 00 :43 Q12H, Medical 40 mg First dose Branch on [facility] 05/07/21 at 2330, Until Discontinu ed pantoprazol No 40mg 40 mg, Uni vers e 05-08 Slow IV ity of (PROTONIX) 04:30: 14:42 Push, [place] injection 00 :43 Q12H, Medical 40 mg First dose Branch on [facility] 05/07/21 at 2330, Until Discontinu ed ondansetron Yes 4mg 4 mg, Slow Univers (ZOFRAN 9-15 IV Push, ity of (PF)) 04:16: Q6HPRN, [place] injection 4 34 Starting Medi mariusz mg on [facility] 05/07/21 at 2316, Until Discontinu ed, Routine, Nausea and Vomiting (N/V) ondansetron Yes 4mg 4 mg, Slow Univers (ZOFRAN 9-15 IV Push, ity of (PF)) 04:16: Q6HPRN, [place] injection 4 34 Starting Medi mariusz mg on [facility] 05/07/21 at 2316, Until Discontinu ed, Routine, Nausea and Vomiting (N/V) morpHINE 2020- No 4mg 4 mg, Slow Un piyush injection 4 05-08 IV Push, ity of mg 04:16: [facility] [place] [facility]32 Starting Medical on [facility] 05/07/21 at 2316, Until Thu05/08/21 at 2315, Routine, Pain (scale 7-10) morpHINE 2020- No 4mg 4 mg, Slow Un piyush injection 4 05-08 IV Push, ity of mg 04:16: 04:15 [facility] [place] 32 :32 Starting Medical on [facility] 05/07/21 at 2316, Until Thu05/08/21 at 2315, Routine, Pain (scale 7-10) diazePAM 2020- No 5mg 5 mg, Slow Un piyush (VALIUM) 05-08 IV Push, ity of injection 5 02:45: 02:49 ONCE, 1 [place] mg 00 :00 dose, On Medical [facility] 05/07/21 at 2145, STAT diazePAM 2020- No 5mg 5 mg, Slow Un piyush (VALIUM) 05-08 IV Push, ity of injection 5 02:45: 02:49 ONCE, 1 [place] mg 00 :00 dose, On [facility] 05/07/21 at 2145, STAT iopamidol 2020-0 2020- No [id number] 100mL 100 mL, Univers (ISOVUE 05-08 Intravenou ity o f 370-500 mL) 02:15: 01:08 s, ONCE, 1 [place] injection 00 :00 dose, On Medica l 100 mL [facility] 05/07/21 at 2115, Routine iopamidol 2020- No [id number] 100mL 100 mL, Univers (ISOVUE 05-08 Intravenou ity o f 370-500 mL) 02:15: 01:08 s, ONCE, 1 [place] injection 00 :00 dose, On Medica l 100 mL [facility] 05/07/21 at 2115, Routine morpHINE 2020-2020- No 4mg 4 mg, Slow Un piyush injection 4 05-08 IV Push, ity of mg 01:45: 00:48 ONCE, 1 [place] 00 :00 dose, On [facility] 05/07/21 at 2044, JOÃO ondansetron 2020-2020- No 4mg 4 mg, Slow Univers (ZOFRAN 05-08 IV Push, ity of (PF)) 01:45: 00:47 ONCE, 1 [place] injection 4 00 :00 dose, On Medi mariusz mg [facility] 05/07/21 at 2044, JOÃO morpHINE 2020-0 2020- No 4mg 4 mg, Slow Un piyush injection 4 05-08 IV Push, ity of mg 01:45: 00:48 ONCE, 1 [place] 00 :00 dose, On [facility] 05/07/21 at 2044, JOÃO ondansetron 2020-0 2020- No 4mg 4 mg, Slow Univers (ZOFRAN 05-08 IV Push, ity of (PF)) 01:45: 00:47 ONCE, 1 [place] injection 4 00 :00 dose, On Medi mariusz mg e Branch 05/07/21 at 2045, JOÃO flu vaccine 2020- No .5mL 0.5 mL, Un piyush 6 months 08-24 Intramuscu ity of and up (PF) 17:30: 18:09 lar, ONCE, [place] (FLUZONE 00 :00 1 dose, Medical QUAD 08/24/20 Branch at 1130, (PF)) Routine syringe 0.5 mL sulfamethox 2020- No 1{tbl} 1 tablet, [facility] azole-trime 08-24 Oral, BID, i ty of thoprim 02:00: 13:59 7 doses, [place] (BACTRIM 00 :00 First dose Medic al DS) 800-160 on [facility] Branch mg per 08/23/20 tablet 1 at 1999, tablet Last dose on 08/26/20 at 1999, JOÃO
Re ason for Anti-Infec tive: Empiric Therapy for Suspected Infection< br>Empiric Therapy Site: Skin / Soft tissue
Duration of therapy: 72 hours sulfamethox 2020- No [id number] 1{tbl} Take 1 Univers azole-trime 08-24 tablet by it y of thoprim 00:00: 05:59 mouth 2 [place] 800-160 mg 00 :00 (two) Medical per tablet times Branch daily for 7 days. enoxaparin 2019-08 Yes 40mg 40 mg, Unive rs (LOVENOX) 2- Subcutaneo ity of injection 21:30: us, Q24H, [place] 40 mg 00 First dose Medical on [facility] Branch 08/23/20 at 1530, Until Discontinu ed, Routine docusate 2019-08 Yes 100mg 100 mg, Unive rs (COLACE) 2-31 Oral, ity of capsule 100 15:00: DAILY, [place] mg 00 First dose Medical on [facility] Branch 08/23/20 at 0900, Until Discontinu ed, Routine psyllium 2019-08 Yes 3{packe 3 Packet, U nivers (METAMUCIL 2-31 t} Oral, TID, ity of FIBER 14:00: First dose [place] SINGLES) 00 on [facility] Medical 3.4 gram 08/23/20 Branch packet 3 at 0800, Packet Until Discontinu ed, Routine heparin 2019-08 2020- No 5000U 5,000 Univers (porcine) 2-31 12- Units, ity of injection 14:00: 20:18 Subcutaneo [place] 5,000 Units 00 :30 us, Q12H, Med ical First dose Branch on [facility] 08/23/20 at 0800, Until Discontinu ed, Routine NaCl 0.9% 2019-08 Yes 1000mL at 75 Unive rs (NS) IV 2-31 mL/hr, IV ity of infusion 04:45: Infusion, [place] 1,000 mL 00 CONTINUOUS Medic al , Starting Branch Thu08/22/20 at 2245, Until Discontinu ed, Routine melatonin 2019-08 Yes 6mg 6 mg, Univers (MELATIN) 2-31 Oral, PRN ity o f tablet 6 mg 03:12: - SEE [address] Medical NS, 1 Branch dose, Starting Thu08/22/20 at 2111, Until Discontinu ed, Routine, Insomnia, HS labetaloL 2019-08 Yes 10mg 10 mg, Univer s (NORMODYNE) 2-31 Slow IV ity o f injection 03:12: Push, [place] 10 mg 33 Q6HPRN, Medical Starting Branch Thu08/22/20 at 2111, Until Discontinu ed, Routine, hypertensi on ondansetron 2019-08 Yes 4mg 4 mg, Slow Univers (ZOFRAN 2-31 IV Push, ity of (PF)) 03:12: Q6HPRN, [place] injection 4 08 Starting Medi mariusz mg Wed Branch 08/22/20 at 2111, Until Discontinu ed, Routine, Nausea and Vomiting (N/V) acetaminoph 2019-08 Yes 650mg 650 mg, Un piyush en 2-31 Oral, ity of (TYLENOL) 03:11: Q6HPRN, [place] tablet 650 56 Starting Medic al mg Wed Branch 08/22/20 at 2110, Until Discontinu ed, Routine, Pain (scale 1-3) NaCl 0.9% 2019-08 2020- No 1000mL at 999 Uni vers (NS) bolus 2-30 12-31 mL/hr, ity of infusion 21:45: 00:21 1,000 mL, [place] 1,000 mL 00 :00 IV Medical Infusion, Branch ONCE, 1 dose, 08/22/20 at 1545, JOÃO iohexol 2019-08- No 100mL 100 mL, Unive rs (OMNIPAQUE 17 07-10 Intravenou it y of 350 00:30: 00:14 s, ONCE, 1 [place] BULK-100 00 :00 dose, Mon Medica l mL) 07/09/20 Branch injection at 1830, 100 mL Routine cefTRIAXone 2019-08- No 1000mg 1,000 mg, Univers (ROCEPHIN) 09-08 IV ity of 1,000 mg in 23:30: 00:58 Piggyback, [place] NaCl 0.9% 00 :00 ONCE, 1 Medical (NS) 50 mL dose, Mon Bran ch MINI-BAG 07/09/20 at 1730, 50 mL
Reas on for Anti-Infec tive: Documented Infection< br>Documen dain Infection Site: HEENT
D uration of Therapy: Other (see Comments) NaCl 0.9% 2019-08- No 1000mL at 999 Uni vers (NS) bolus 09-08-17 mL/hr, ity of infusion 22:45: 00:07 1,000 mL, [place] 1,000 mL 00 :00 IV Medical Infusion, Branch ONCE, 1 dose, 07/09/20 at 1645, [facility] amoxicillin 2019-08 Yes [id number] 1{tbl} Take 1 Univers -clavulanat 1-16 tablet by ity of e 875-125 00:00: mouth [place] mg per 00 every 12 Medical tablet (twelve) Branch hours. amoxicillin 2019-08- No [id number] 1{tbl} Take 1 Univers -clavulanat 1-16 - tablet by it y of e 875-125 00:00: 00:00 mouth [place] mg per 00 :00 every 12 Medical tablet (twelve) Branch hours. iohexol 2019-08- No 120mL 120 mL, Unive rs (OMNIPAQUE 0-13 - Intravenou it y of 350 13:15: 12:53 s, ONCE, 1 [place] BULK-150 00 :00 dose, Tue Medica l mL) 06/05/20 Branch injection at 0815, 120 mL Routine NaCl 0.9% 2019-08- No 1000mL at 999 Uni vers (NS) bolus 0-13 10-13 mL/hr, ity of infusion 12:00: 13:00 1,000 mL, [place] 1,000 mL 00 :00 IV Medical Infusion, Branch ONCE, 1 dose, Thu06/05/20 at 0700, JOÃO levoFLOXaci 2019-08- No 750mg 750 mg, U nivers n 0-08 10-08 Oral, Q24H ity of (LEVAQUIN) 04:30: 04:35 ABX, 1 [place] tablet 750 00 :00 dose, Medical mg First dose Branch (after last modificati on) on Thu05/30/20 at 2330, JOÃO
Re ason for Anti-Infec tive: Documented Infection< br>Documen dain Infection Site: Abdominal& lt;br>Dura tion of Therapy: 7 days ibuprofen 2019-08 Yes [id number] 800mg Take 1 U nivers 800 mg 0-08 tablet by ity of tablet 00:00: mouth [place] 00 every 6 Medical (six) Branch hours as needed for Pain (scale 4-6). loperamide 2019-08 Yes [id number] 4mg Take 2 U nivers 2 mg 0-08 capsules ity of capsule 00:00: by mouth 4 [place] 00 (four) Medical times Branch daily. diphenoxyla 2019-08 Yes [id number] 1{tbl} Take 1 Univers te-atropine 0-08 tablet by ity of 2.5-0.025 00:00: mouth [place] mg tablet 00 every 8 Medical (eight) Branch hours. psyllium 2019- Yes [id number] 3{packe Take 3 Univers 3.4 gram 0-08 t} Packets by ity o f packet 00:00: mouth 3 [place] 00 (three) Medical times Branch daily. psyllium 2020- Yes [id number] 3{packe Take 3 Univers 3.4 gram 0-08 t} Packets by ity o f packet 00:00: mouth 3 [place] 00 (three) Medical times Branch daily. diphenoxyla 2019- Yes [id number] 1{tbl} Take 1 Univers te-atropine 0-08 tablet by ity of 2.5-0.025 00:00: mouth [place] mg tablet 00 every 8 Medical (eight) Branch hours. loperamide 2020-1 Yes [id number] 4mg Take 2 U nivers 2 mg 0-08 capsules ity of capsule 00:00: by mouth 4 [place] 00 (four) Medical times Branch daily. ibuprofen 2020-1 Yes [id number] 800mg Take 1 U nivers 800 mg 0-08 tablet by ity of tablet 00:00: mouth [place] 00 every 6 Medical (six) Branch hours as needed for Pain (scale 4-6). psyllium 2020-1 Yes [id number] 3{packe Take 3 Univers 3.4 gram 0-08 t} Packets by ity o f packet 00:00: mouth 3 [place] 00 (three) Medical times Branch daily. diphenoxyla 2020-1 Yes [id number] 1{tbl} Take 1 Univers te-atropine 0-08 tablet by ity of 2.5-0.025 00:00: mouth [place] mg tablet 00 every 8 Medical (eight) Branch hours. loperamide 2020-1 Yes [id number] 4mg Take 2 U nivers 2 mg 0-08 capsules ity of capsule 00:00: by mouth 4 [place] 00 (four) Medical times Branch daily. ibuprofen 2020-1 Yes [id number] 800mg Take 1 U nivers 800 mg 0-08 tablet by ity of tablet 00:00: mouth [place] 00 every 6 Medical (six) Branch hours as needed for Pain (scale 4-6). psyllium 2020-1 Yes [id number] 3{packe Take 3 Univers 3.4 gram 0-08 t} Packets by ity o f packet 00:00: mouth 3 [place] 00 (three) Medical times Branch daily. diphenoxyla 2020-1 Yes [id number] 1{tbl} Take 1 Univers te-atropine 0-08 tablet by ity of 2.5-0.025 00:00: mouth [place] mg tablet 00 every 8 Medical (eight) Branch hours. loperamide 2020-1 Yes [id number] 4mg Take 2 U nivers 2 mg 0-08 capsules ity of capsule 00:00: by mouth 4 [place] 00 (four) Medical times Branch daily. ibuprofen 2020-1 Yes [id number] 800mg Take 1 U nivers 800 mg 0-08 tablet by ity of tablet 00:00: mouth [place] 00 every 6 Medical (six) Branch hours as needed for Pain (scale 4-6). psyllium 2020-1 Yes [id number] 3{packe Take 3 Univers 3.4 gram 0-08 t} Packets by ity o f packet 00:00: mouth 3 [place] 00 (three) Medical times Branch daily. diphenoxyla 2020-1 Yes [id number] 1{tbl} Take 1 Univers te-atropine 0-08 tablet by ity of 2.5-0.025 00:00: mouth [place] mg tablet 00 every 8 Medical (eight) Branch hours. loperamide 2020- Yes [id number] 4mg Take 2 U nivers 2 mg 0-08 capsules ity of capsule 00:00: by mouth 4 [place] 00 (four) Medical times Branch daily. ibuprofen 2020- Yes [id number] 800mg Take 1 U nivers 800 mg 0-08 tablet by ity of tablet 00:00: mouth [place] 00 every 6 Medical (six) Branch hours as needed for Pain (scale 4-6). psyllium 2020-1 Yes [id number] 3{packe Take 3 Univers 3.4 gram 0-08 t} Packets by ity o f packet 00:00: mouth 3 [place] 00 (three) Medical times Branch daily. diphenoxyla 2020- Yes [id number] 1{tbl} Take 1 Univers te-atropine 0-08 tablet by ity of 2.5-0.025 00:00: mouth [place] mg tablet 00 every 8 Medical (eight) Branch hours. loperamide 2020-1 Yes [id number] 4mg Take 2 U nivers 2 mg 0-08 capsules ity of capsule 00:00: by mouth 4 [place] 00 (four) Medical times Branch daily. ibuprofen 2020- Yes [id number] 800mg Take 1 U nivers 800 mg 0-08 tablet by ity of tablet 00:00: mouth [place] 00 every 6 Medical (six) Branch hours as needed for Pain (scale 4-6). psyllium 2020-1 Yes [id number] 3{packe Take 3 Univers 3.4 gram 0-08 t} Packets by ity o f packet 00:00: mouth 3 [place] 00 (three) Medical times Branch daily. diphenoxyla 2020-1 Yes [id number] 1{tbl} Take 1 Univers te-atropine 0-08 tablet by ity of 2.5-0.025 00:00: mouth [place] mg tablet 00 every 8 Medical (eight) Branch hours. loperamide 2020-1 Yes [id number] 4mg Take 2 U nivers 2 mg 0-08 capsules ity of capsule 00:00: by mouth 4 [place] 00 (four) Medical times Branch daily. ibuprofen 2020-1 Yes [id number] 800mg Take 1 U nivers 800 mg 0-08 tablet by ity of tablet 00:00: mouth [place] 00 every 6 Medical (six) Branch hours as needed for Pain (scale 4-6). psyllium 2020-1 Yes [id number] 3{packe Take 3 Univers 3.4 gram 0-08 t} Packets by ity o f packet 00:00: mouth 3 [place] 00 (three) Medical times Branch daily. diphenoxyla 2020-1 Yes [id number] 1{tbl} Take 1 Univers te-atropine 0-08 tablet by ity of 2.5-0.025 00:00: mouth [place] mg tablet 00 every 8 Medical (eight) Branch hours. loperamide 2020-1 Yes [id number] 4mg Take 2 U nivers 2 mg 0-08 capsules ity of capsule 00:00: by mouth 4 [place] 00 (four) Medical times Branch daily. ibuprofen 2020-1 Yes [id number] 800mg Take 1 U nivers 800 mg 0-08 tablet by ity of tablet 00:00: mouth [place] 00 every 6 Medical (six) Branch hours as needed for Pain (scale 4-6). psyllium 2020-1 Yes [id number] 3{packe Take 3 Univers 3.4 gram 0-08 t} Packets by ity o f packet 00:00: mouth 3 [place] 00 (three) Medical times Branch daily. diphenoxyla 2020-1 Yes [id number] 1{tbl} Take 1 Univers te-atropine 0-08 tablet by ity of 2.5-0.025 00:00: mouth [place] mg tablet 00 every 8 Medical (eight) Branch hours. loperamide 2020-1 Yes [id number] 4mg Take 2 U nivers 2 mg 0-08 capsules ity of capsule 00:00: by mouth 4 [place] 00 (four) Medical times Branch daily. ibuprofen 2020-1 Yes [id number] 800mg Take 1 U nivers 800 mg 0-08 tablet by ity of tablet 00:00: mouth [place] 00 every 6 Medical (six) Branch hours as needed for Pain (scale 4-6). psyllium 2020-1 Yes [id number] 3{packe Take 3 Univers 3.4 gram 0-08 t} Packets by ity o f packet 00:00: mouth 3 [place] 00 (three) Medical times Branch daily. diphenoxyla 2020-1 Yes [id number] 1{tbl} Take 1 Univers te-atropine 0-08 tablet by ity of 2.5-0.025 00:00: mouth [place] mg tablet 00 every 8 Medical (eight) Branch hours. loperamide 2020-1 Yes [id number] 4mg Take 2 U nivers 2 mg 0-08 capsules ity of capsule 00:00: by mouth 4 [place] 00 (four) Medical times Branch daily. ibuprofen 2020-1 Yes [id number] 800mg Take 1 U nivers 800 mg 0-08 tablet by ity of tablet 00:00: mouth [place] 00 every 6 Medical (six) Branch hours as needed for Pain (scale 4-6). psyllium 2020-1 Yes [id number] 3{packe Take 3 Univers 3.4 gram 0-08 t} Packets by ity o f packet 00:00: mouth 3 [place] 00 (three) Medical times Branch daily. diphenoxyla 2020-1 Yes [id number] 1{tbl} Take 1 Univers te-atropine 0-08 tablet by ity of 2.5-0.025 00:00: mouth [place] mg tablet 00 every 8 Medical (eight) Branch hours. loperamide 2020-1 Yes [id number] 4mg Take 2 U nivers 2 mg 0-08 capsules ity of capsule 00:00: by mouth 4 [place] 00 (four) Medical times Branch daily. ibuprofen 2020-1 Yes [id number] 800mg Take 1 U nivers 800 mg 0-08 tablet by ity of tablet 00:00: mouth [place] 00 every 6 Medical (six) Branch hours as needed for Pain (scale 4-6). psyllium 2020-1 Yes [id number] 3{packe Take 3 Univers 3.4 gram 0-08 t} Packets by ity o f packet 00:00: mouth 3 [place] 00 (three) Medical times Branch daily. diphenoxyla 2020-1 Yes [id number] 1{tbl} Take 1 Univers te-atropine 0-08 tablet by ity of 2.5-0.025 00:00: mouth [place] mg tablet 00 every 8 Medical (eight) Branch hours. loperamide 2020-1 Yes [id number] 4mg Take 2 U nivers 2 mg 0-08 capsules ity of capsule 00:00: by mouth 4 [place] 00 (four) Medical times Branch daily. ibuprofen 2019- Yes [id number] 800mg Take 1 U nivers 800 mg 0-08 tablet by ity of tablet 00:00: mouth [place] 00 every 6 Medical (six) Branch hours as needed for Pain (scale 4-6). psyllium 2020- Yes [id number] 3{packe Take 3 Univers 3.4 gram 0-08 t} Packets by ity o f packet 00:00: mouth 3 [place] 00 (three) Medical times Branch daily. diphenoxyla 2020-1 Yes [id number] 1{tbl} Take 1 Univers te-atropine 0-08 tablet by ity of 2.5-0.025 00:00: mouth [place] mg tablet 00 every 8 Medical (eight) Branch hours. loperamide 2019- Yes [id number] 4mg Take 2 U nivers 2 mg 0-08 capsules ity of capsule 00:00: by mouth 4 [place] 00 (four) Medical times Branch daily. ibuprofen 2019- Yes [id number] 800mg Take 1 U nivers 800 mg 0-08 tablet by ity of tablet 00:00: mouth [place] 00 every 6 Medical (six) Branch hours as needed for Pain (scale 4-6). psyllium 2020-1 Yes [id number] 3{packe Take 3 Univers 3.4 gram 0-08 t} Packets by ity o f packet 00:00: mouth 3 [place] 00 (three) Medical times Branch daily. diphenoxyla 2020-1 Yes [id number] 1{tbl} Take 1 Univers te-atropine 0-08 tablet by ity of 2.5-0.025 00:00: mouth [place] mg tablet 00 every 8 Medical (eight) Branch hours. loperamide 2020-1 Yes [id number] 4mg Take 2 U nivers 2 mg 0-08 capsules ity of capsule 00:00: by mouth 4 [place] 00 (four) Medical times Branch daily. ibuprofen 2020- Yes [id number] 800mg Take 1 U nivers 800 mg 0-08 tablet by ity of tablet 00:00: mouth [place] 00 every 6 Medical (six) Branch hours as needed for Pain (scale 4-6). acetaminoph 2019-08- No [id number] 650mg Take 2 Univers en 325 mg 0-08 10-09 tablets by ity of tablet 00:00: 04:59 mouth [place] 00 :00 every 6 Medical (six) Branch hours as needed for Pain (scale 1-3). acetaminoph 2019-08- No [id number] 650mg Take 2 Univers en 325 mg 0-08 10-09 tablets by ity of tablet 00:00: 04:59 mouth [place] 00 :00 every 6 Medical (six) Branch hours as needed for Pain (scale 1-3). acetaminoph 2019-08 No [id number] 650mg Take 2 Univers en 325 mg 0-08 10-09 tablets by ity of tablet 00:00: 04:59 mouth [place] 00 :00 every 6 Medical (six) Branch hours as needed for Pain (scale 1-3). acetaminoph 2019-08 No [id number] 650mg Take 2 Univers en 325 mg 0-08 10-09 tablets by ity of tablet 00:00: 04:59 mouth [place] 00 :00 every 6 Medical (six) Branch hours as needed for Pain (scale 1-3). acetaminoph 2019-08 No [id number] 650mg Take 2 Univers en 325 mg 0-08 10-09 tablets by ity of tablet 00:00: 04:59 mouth [place] 00 :00 every 6 Medical (six) Branch hours as needed for Pain (scale 1-3). acetaminoph 2019-08- No [id number] 650mg Take 2 Univers en 325 mg 0-08 10-09 tablets by ity of tablet 00:00: 04:59 mouth [place] 00 :00 every 6 Medical (six) Branch hours as needed for Pain (scale 1-3). acetaminoph 2019-08- No [id number] 650mg Take 2 Univers en 325 mg 0-08 10-09 tablets by ity of tablet 00:00: 04:59 mouth [place] 00 :00 every 6 Medical (six) Branch hours as needed for Pain (scale 1-3). acetaminoph 2019-08 No [id number] 650mg Take 2 Univers en 325 mg 0-08 10-09 tablets by ity of tablet 00:00: 04:59 mouth [place] 00 :00 every 6 Medical (six) Branch hours as needed for Pain (scale 1-3). acetaminoph 2019-08- No [id number] 650mg Take 2 Univers en 325 mg 0-08 10-09 tablets by ity of tablet 00:00: 04:59 mouth [place] 00 :00 every 6 Medical (six) Branch hours as needed for Pain (scale 1-3). acetaminoph 2019-08- No [id number] 650mg Take 2 [facility] en 325 mg 0-08 10-09 tablets by ity of tablet 00:00: 04:59 mouth [place] 00 :00 every 6 Medical (six) Branch hours as needed for Pain (scale 1-3). acetaminoph 2019-08- No [id number] 650mg Take 2 [facility] en 325 mg 0-08 10-09 tablets by ity of tablet 00:00: 04:59 mouth [place] 00 :00 every 6 Medical (six) Branch hours as needed for Pain (scale 1-3). acetaminoph 2019-08- No [id number] 650mg Take 2 [facility] en 325 mg 0-08 10-09 tablets by ity of tablet 00:00: 04:59 mouth [place] 00 :00 every 6 Medical (six) Branch hours as needed for Pain (scale 1-3). acetaminoph 2019-08- No [id number] 650mg Take 2 [facility] en 325 mg 0-08 10-09 tablets by ity of tablet 00:00: 04:59 mouth [place] 00 :00 every 6 Medical (six) Branch hours as needed for Pain (scale 1-3). acetaminoph 2019-08- No [id number] 650mg Take 2 [facility] en 325 mg 0-08 10-09 tablets by ity of tablet 00:00: 04:59 mouth [place] 00 :00 every 6 Medical (six) Branch hours as needed for Pain (scale 1-3). psyllium 2019-08- No [id number] 3{packe Take 3 [facility] 3.4 gram 0-08 09-16 t} Packets by ity of packet 00:00: 00:00 mouth 3 [place] 00 :00 (three) Medical times Branch daily. diphenoxyla 2019-08 No [id number] 1{tbl} Take 1 [facility] te-atropine 0-08 -16 tablet by it y of 2.5-0.025 00:00: 00:00 mouth [place] mg tablet 00 :00 every 8 Medical (eight) Branch hours. loperamide 2019-08 No [id number] 4mg Take 2 [facility] 2 mg 0-08 09-16 capsules ity of capsule 00:00: 00:00 by mouth 4 [place] 00 :00 (four) Medical times Branch daily. ibuprofen 2019-08 No [id number] 800mg Take 1 [facility] 800 mg 0-08 09-16 tablet by ity of tablet 00:00: 00:00 mouth [place] 00 :00 every 6 Medical (six) Branch hours as needed for Pain (scale 4-6). acetaminoph 2019-08 No [id number] 650mg Take 2 [facility] en 325 mg 0-08 -16 tablets by ity of tablet 00:00: 00:00 mouth [place] 00 :00 every 6 Medical (six) Branch hours as needed for Pain (scale 1-3). psyllium 2019-08 No [id number] 3{packe Take 3 [facility] 3.4 gram 0-08 -16 t} Packets by ity of packet 00:00: 00:00 mouth 3 [place] 00 :00 (three) Medical times Branch daily. diphenoxyla 2019-08 No [id number] 1{tbl} Take 1 [facility] te-atropine 0-08 -16 tablet by it y of 2.5-0.025 00:00: 00:00 mouth [place] mg tablet 00 :00 every 8 Medical (eight) Branch hours. loperamide 2019-08 No [id number] 4mg Take 2 [facility] 2 mg 0-08 09-16 capsules ity of capsule 00:00: 00:00 by mouth 4 [place] 00 :00 (four) Medical times Branch daily. ibuprofen 2019-08 No [id number] 800mg Take 1 [facility] 800 mg 0-08 09-16 tablet by ity of tablet 00:00: 00:00 mouth [place] 00 :00 every 6 Medical (six) Branch hours as needed for Pain (scale 4-6). acetaminoph 2019-08 No [id number] 650mg Take 2 [facility] en 325 mg 0-08 09-16 tablets by ity of tablet 00:00: 00:00 mouth [place] 00 :00 every 6 Medical (six) Branch hours as needed for Pain (scale 1-3). acetaminoph 2019-08- No [id number] 650mg Take 2 [facility] en 325 mg 0-08 10-08 tablets by ity of tablet 00:00: 00:00 mouth [place] 00 :00 every 6 Medical (six) Branch hours as needed for Pain (scale 1-3). ibuprofen 2019-08- No [id number] 800mg Take 1 [facility] 800 mg 0-08 10-08 tablet by ity of tablet 00:00: 00:00 mouth [place] 00 :00 every 6 Medical (six) Branch hours as needed for Pain (scale 4-6). loperamide 2019-08- No [id number] 4mg Take 2 [facility] 2 mg 0-08 10-08 capsules ity of capsule 00:00: 00:00 by mouth 4 [place] 00 :00 (four) Medical times Branch daily. diphenoxyla 2019-08- No [id number] 1{tbl} Take 1 [facility] te-atropine 0-08 10-08 tablet by it y of 2.5-0.025 00:00: 00:00 mouth [place] mg tablet 00 :00 every 8 Medical (eight) Branch hours. psyllium 2019-08- No [id number] 3{packe Take 3 [facility] 3.4 gram 0-08 10-08 t} Packets by ity of packet 00:00: 00:00 mouth 3 [place] 00 :00 (three) Medical times Branch daily. iohexoL 2019-08 2020- No 50mL 50 mL, Univers (OMNIPAQUE 0-07 10-07 Injection, it y of 300-50 mL)) 19:00: 18:59 ONCE, 1 [place] injection 00 :00 dose, Wed Medic al 50 mL 05/30/20 at Branch 1400, Routine diphenoxyla 2019-08 Yes 1{tbl} 1 tablet, Univers te-atropine 0-06 Oral, Q8H, it y of (LOMOTIL) 14:00: First dose [place] 2.5-0.025 00 on Tue Medical mg tablet 1 05/29/20 at Br anch tablet 0900, Until Discontinu ed, Routine psyllium 2020-1 Yes 3{packe 3 Packet, U nivers (METAMUCIL 0-06 t} Oral, TID, ity of FIBER 13:00: First dose [place] SINGLES) 00 (after Medical 3.4 gram last Branch packet 3 modificati Packet on) on Thu05/29/20 at 0800, Until Discontinu ed, Routine magnesium 2019- 2020- No 4g 4 g, IV Univ ers sulfate in 0-06 -06 Piggyback, it y of water 4 12:30: 14:29 ONCE, 1 [place] gram/50 mL 00 :00 dose, Thu Medi mariusz (8 %) IV 05/29/20 at [facility] Piggyback 4 0730, g Routine magnesium 2019-08 2020- No 2g 2 g, IV Univ ers sulfate in 0- 10-05 Piggyback, it y of water 2 13:30: 13:20 ONCE, 1 [place] gram/50 mL 00 :00 dose, [facility] Medi mariusz (4 %) 05/28/20 at Branch infusion 2 0830, g Routine loperamide 2019-08 Yes 4mg 4 mg, Univer s (IMODIUM 0-05 Oral, QID, ity o f A-D) 13:00: First dose [place] capsule 4 00 (after Medical mg last Branch modificati on) on Thu05/28/20 at 0800, Until Discontinu ed, Routine psyllium 2020- 2020- No 1{packe 1 Packet, Univers (METAMUCIL 0-05 10-06 t} Oral, BID, it y of FIBER 01:00: 12:18 First dose [place] SINGLES) 00 :14 on [place] [facility] 3.4 gram 05/27/20 at [facility] packet 1 1999, Packet Until Discontinu ed, Routine loperamide 2019-08 2020- No 4mg 4 mg, Unive rs (IMODIUM 0-04 10-05 Oral, TID, ity of A-D) 19:00: 12:56 First dose [place] capsule 4 00 :31 (after Medical mg last Branch modificati on) on [place] 05/27/20 at 1400, Until Discontinu ed, Routine magnesium 2020- 2020- No 2g 2 g, IV Univ ers sulfate in 0-04 10-04 Piggyback, it y of water 2 13:00: 12:28 ONCE, 1 [place] gram/50 mL 00 :00 dose, Sun Medi mariusz (4 %) 05/27/20 at [place] infusion 2 0800, g Routine lactated 2019-08 Yes 1000mL at 999 Unive rs ringers IV 0-03 mL/hr, ity of infusion 11:39: 1,000 mL, [place] 1,000 mL 37 Intravenou Medic al s, PRN - Branch SEE INSTRUCTIO NS, Starting 05/26/20 at 0639, Until Discontinu ed, Routine loperamide 2019-08- No 4mg 4 mg, Unive rs (IMODIUM 005-27 Oral, BID, ity of A-D) 01:00: 14:08 First dose [place] capsule 4 00 :08 (after Medical mg last Branch modificati on) on Thu05/25/20 at 2000, Until Discontinu ed, Routine lactated 2019-08- No 1000mL at 999 Univ ers ringers IV 0-02 10-03 mL/hr, ity of infusion 20:08: 01:57 1,000 mL, [place] 1,000 mL 00 :00 Intravenou Medic al s, ONCE, 1 Branch dose, 05/25/20 at 1515, Routine magnesium 2019-08- No 4g 4 g, IV Univ ers sulfate in 005-24 Piggyback, it y of water 4 22:15: 22:07 ONCE, 1 [place] gram/50 mL 00 :00 dose, [place] Medi mariusz (8 %) IV 05/24/20 at [facility] h Piggyback 4 1715, g Routine iohexoL 2019-08- No 50mL 50 mL, Univers (OMNIPAQUE 005-24 Injection, it y of 300-50 mL)) 17:45: 17:37 ONCE, 1 [place] injection 00 :00 dose, [place] Medic al 50 mL 05/24/20 at Branch 1245, Routine FENTanyl PF 2019-08- No Slow IV Un piyush (SUBLIMAZE 005-24 Push, PRN, it y of (PF)) 17:00: 17:26 Starting [place] injection 30 :44 [place] [facility] 05/24/20 at Branch 1200, Until Discontinu ed, Routine midazolam 2019-08- No IV Push, Uni vers (VERSED) 001 PRN, ity of injection 17:00: 17:00 Starting [place] 16 :16 [place] [facility] 05/24/20 at Branch 1200, Until Discontinu ed, Routine FENTanyl PF 2019-08- No Slow IV Un piyush (SUBLIMAZE 05-24 Push, PRN, it y of (PF)) 16:01: 16:01 Starting [place] injection 03 :03 [place] [facility] 05/24/20 at Branch 1101, Until Discontinu ed, Routine loperamide 2019-08- No 2mg 2 mg, Unive rs (IMODIUM 05-25 Oral, BID, ity of A-D) 13:00: 12:33 First dose [place] capsule 2 00 :17 on [place] [facility] mg 05/24/20 at Branch 0800, Until Discontinu ed, Routine iohexol 2019- No 100mL 100 mL, Unive rs (OMNIPAQUE 05-23 Intravenou it y of 350 14:54: 14:54 s, ONCE, 1 [place] BULK-100 00 :00 dose, Thu Medica l mL) 05/23/20 at [place] injection 1015, 100 mL Routine docusate 2019- No 100mg 100 mg, Univ ers (COLACE) 05-23 Oral, ity of capsule 100 14:00: 17:31 DAILY, [place] mg 00 :24 First dose Medical on Thu Branch 05/23/20 at 0900, Until Discontinu ed, Routine levoFLOXaci 2019- No 750mg 750 mg, U nivers n 05-2307 Oral, Q24H ity of (LEVAQUIN) 04:30: 18:00 ABX, First [place] tablet 750 00 :16 dose on Medica l mg Thu [place] 05/22/20 at 2330, Until Discontinu ed, JOÃO
Re ason for Anti-Infec tive: Documented Infection< br>Documen dain Infection Site: Abdominal< br>Duratio n of Therapy: 7 days ondansetron 2019-0 Yes 4mg 4 mg, Slow Univers (ZOFRAN 05-23 IV Push, ity of (PF)) 03:15: Administer [place] injection 4 50 over 15 Medic al mg Minutes, Branch Q8HPRN, Starting 05/22/20 at 2215, Until Discontinu ed, Routine, Nausea and Vomiting (N/V) D5W 0.45% 2020-0 Yes IV Univers NaCl 05-23 Infusion, ity of (1/2NS) 1 L 03:15: at 50 [place] + KCL 20 00 mL/hr, Medical mEq CONTINUOUS Branch , Starting 05/22/20 at 2230, Until Discontinu ed, Routine ibuprofen 2020-0 Yes 800mg 800 mg, Univ ers (IBU) 05-23 Oral, ity of tablet 800 03:13: Q6HPRN, [place] mg 38 Starting Medical Tue Branch 05/22/20 at 2213, Until Discontinu ed, Routine, Pain (scale 4-6) acetaminoph 2019-0 Yes 650mg 650 mg, Un piyush en 05-23 Oral, ity of (TYLENOL) 03:13: Q6HPRN, [place] tablet 650 36 Starting Medic al mg [facility] Branch 05/22/20 at 2213, Until Discontinu ed, Routine, Pain (scale 1-3) morpHINE 2019-0 2020- No 4mg 4 mg, Slow Un piyush injection 4 05-22 IV Push, ity of mg 03:30: 03:13 ONCE, 1 [place] 00 :00 dose, [facility] 05/21/20 at Branch 2230, STAT piperacilli 2020-0 2020- No 3.375g 3.375 g, Univers n-tazobacta 05-20 IV ity of m (ZOSYN) 10:15: 22:14 Piggyback, [place] 3.375 g in 00 :00 ONCE, 1 Medica l NaCl 0.9% dose, [facility] h (NS) 100 mL 05/20/20 at MINI-BAG 0515, 100 mL
Reas on for Anti-Infec tive: Documented Infection< br>Documen dain Infection Site: Abdominal< br>Duratio n of Therapy: 7 days iohexol 2020-0 2020- No 100mL 100 mL, Unive rs (OMNIPAQUE 05-20 Intravenou it y of 350 04:02: 04:02 s, ONCE, 1 [place] BULK-100 00 :00 dose, Sat Medica l mL) 05/19/20 at Branch injection 2315, 100 mL Routine ondansetron 2019-0 2020- No 4mg 4 mg, Slow Univers (ZOFRAN 05-20 IV Push, ity of (PF)) 03:45: 03:36 ONCE, 1 [place] injection 4 00 :00 dose, Sat Med ical mg 05/19/20 at Branch 2245, JOÃO morpHINE 2019-0 2020- No 4mg 4 mg, Slow Un piyush injection 4 05-20 IV Push, ity of mg 03:45: 03:36 ONCE, 1 [place] 00 :00 dose, Sat Medical 05/19/20 at Branch 2245, STAT NaCl 0.9% 2019-0 2020- No 1000mL at 999 Uni vers (NS) bolus 05-20 mL/hr, ity of infusion 03:45: 11:13 1,000 mL, [place] 1,000 mL 00 :00 IV Medical Piggyback, [place] ONCE, 1 dose, 05/19/20 at 2245, STAT ibuprofen 2020-0 Yes [id number] 800mg Take 1 U nivers 800 mg 9-18 tablet by ity of tablet 00:00: mouth [place] 00 every 6 Medical (six) Branch hours as needed for Pain (scale 4-6). levoFLOXaci 2020-0 Yes [id number] 750mg Take 1 Univers n 750 mg 9-18 tablet by ity of tablet 00:00: mouth [place] 00 every 24 Medical (twenty-fo Branch ur) hours. loperamide 2020-0 Yes [id number] 2mg Take 1 U nivers 2 mg 9-18 capsule by ity of capsule 00:00: mouth [place] 00 daily. Medical Branch ibuprofen 2020-0 Yes [id number] 800mg Take 1 U nivers 800 mg 9-18 tablet by ity of tablet 00:00: mouth [place] 00 every 6 Medical (six) Branch hours as needed for Pain (scale 4-6). levoFLOXaci 2020-0 Yes [id number] 750mg Take 1 Univers n 750 mg 9-18 tablet by ity of tablet 00:00: mouth [place] 00 every 24 Medical (twenty-fo Branch ur) hours. loperamide 2020-0 Yes [id number] 2mg Take 1 U nivers 2 mg 9-18 capsule by ity of capsule 00:00: mouth [place] 00 daily. Medical Branch ibuprofen 2020-0 Yes [id number] 800mg Take 1 U nivers 800 mg 9-18 tablet by ity of tablet 00:00: mouth [place] 00 every 6 Medical (six) Branch hours as needed for Pain (scale 4-6). levoFLOXaci 2020-0 Yes [id number] 750mg Take 1 Univers n 750 mg 9-18 tablet by ity of tablet 00:00: mouth [place] 00 every 24 Medical (twenty-fo Branch ur) hours. loperamide 2020-0 Yes [id number] 2mg Take 1 U nivers 2 mg 9-18 capsule by ity of capsule 00:00: mouth [place] 00 daily. Medical Branch ibuprofen 2020-0 Yes [id number] 800mg Take 1 U nivers 800 mg 9-18 tablet by ity of tablet 00:00: mouth [place] 00 every 6 Medical (six) Branch hours as needed for Pain (scale 4-6). levoFLOXaci 2020-0 Yes [id number] 750mg Take 1 Univers n 750 mg 9-18 tablet by ity of tablet 00:00: mouth [place] 00 every 24 Medical (twenty-fo Branch ur) hours. loperamide 2020-0 Yes [id number] 2mg Take 1 U nivers 2 mg 9-18 capsule by ity of capsule 00:00: mouth [place] 00 daily. Medical Branch ibuprofen 2020-0 Yes [id number] 800mg Take 1 U nivers 800 mg 9-18 tablet by ity of tablet 00:00: mouth [place] 00 every 6 Medical (six) Branch hours as needed for Pain (scale 4-6). levoFLOXaci 2020-0 Yes [id number] 750mg Take 1 Univers n 750 mg 9-18 tablet by ity of tablet 00:00: mouth [place] 00 every 24 Medical (twenty-fo Branch ur) hours. loperamide 2020-0 Yes [id number] 2mg Take 1 U nivers 2 mg 9-18 capsule by ity of capsule 00:00: mouth [place] 00 daily. Medical Branch ibuprofen 2020-0 Yes [id number] 800mg Take 1 U nivers 800 mg 9-18 tablet by ity of tablet 00:00: mouth [place] 00 every 6 Medical (six) Branch hours as needed for Pain (scale 4-6). levoFLOXaci 2020-0 Yes [id number] 750mg Take 1 Univers n 750 mg 9-18 tablet by ity of tablet 00:00: mouth [place] 00 every 24 Medical (twenty-fo Branch ur) hours. loperamide 2020-0 Yes [id number] 2mg Take 1 U nivers 2 mg 9-18 capsule by ity of capsule 00:00: mouth [place] 00 daily. Medical Branch ibuprofen 2020-0 Yes [id number] 800mg Take 1 U nivers 800 mg 9-18 tablet by ity of tablet 00:00: mouth [place] 00 every 6 Medical (six) Branch hours as needed for Pain (scale 4-6). levoFLOXaci 2020-0 Yes [id number] 750mg Take 1 Univers n 750 mg 9-18 tablet by ity of tablet 00:00: mouth [place] 00 every 24 Medical (twenty-fo Branch ur) hours. loperamide 2020-0 Yes [id number] 2mg Take 1 U nivers 2 mg 9-18 capsule by ity of capsule 00:00: mouth [place] 00 daily. Medical Branch ibuprofen 2020-0 Yes [id number] 800mg Take 1 U nivers 800 mg 9-18 tablet by ity of tablet 00:00: mouth [place] 00 every 6 Medical (six) Branch hours as needed for Pain (scale 4-6). levoFLOXaci 2020-0 Yes [id number] 750mg Take 1 Univers n 750 mg 9-18 tablet by ity of tablet 00:00: mouth [place] 00 every 24 Medical (twenty-fo Branch ur) hours. loperamide 2020-0 Yes [id number] 2mg Take 1 U nivers 2 mg 9-18 capsule by ity of capsule 00:00: mouth [place] 00 daily. Medical Branch ibuprofen 2020-0 Yes [id number] 800mg Take 1 U nivers 800 mg 9-18 tablet by ity of tablet 00:00: mouth [place] 00 every 6 Medical (six) Branch hours as needed for Pain (scale 4-6). levoFLOXaci 2020-0 Yes [id number] 750mg Take 1 Univers n 750 mg 9-18 tablet by ity of tablet 00:00: mouth [place] 00 every 24 Medical (twenty-fo Branch ur) hours. loperamide 2020-0 Yes [id number] 2mg Take 1 U nivers 2 mg 9-18 capsule by ity of capsule 00:00: mouth [place] 00 daily. Medical Branch ibuprofen 2020-0 Yes [id number] 800mg Take 1 U nivers 800 mg 9-18 tablet by ity of tablet 00:00: mouth [place] 00 every 6 Medical (six) Branch hours as needed for Pain (scale 4-6). levoFLOXaci 2020-0 Yes [id number] 750mg Take 1 Univers n 750 mg 9-18 tablet by ity of tablet 00:00: mouth [place] 00 every 24 Medical (twenty-fo Branch ur) hours. loperamide 2020-0 Yes [id number] 2mg Take 1 U nivers 2 mg 9-18 capsule by ity of capsule 00:00: mouth [place] 00 daily. Medical Branch ibuprofen 2020-0 Yes [id number] 800mg Take 1 U nivers 800 mg 9-18 tablet by ity of tablet 00:00: mouth [place] 00 every 6 Medical (six) Branch hours as needed for Pain (scale 4-6). levoFLOXaci 2020-0 Yes [id number] 750mg Take 1 Univers n 750 mg 9-18 tablet by ity of tablet 00:00: mouth [place] 00 every 24 Medical (twenty-fo Branch ur) hours. loperamide 2020-0 Yes [id number] 2mg Take 1 U nivers 2 mg 9-18 capsule by ity of capsule 00:00: mouth [place] 00 daily. Medical Branch ibuprofen 2020-0 Yes [id number] 800mg Take 1 U nivers 800 mg 9-18 tablet by ity of tablet 00:00: mouth [place] 00 every 6 Medical (six) Branch hours as needed for Pain (scale 4-6). levoFLOXaci 2020-0 Yes [id number] 750mg Take 1 Univers n 750 mg 9-18 tablet by ity of tablet 00:00: mouth [place] 00 every 24 Medical (twenty-fo Branch ur) hours. loperamide 2020-0 Yes [id number] 2mg Take 1 U nivers 2 mg 9-18 capsule by ity of capsule 00:00: mouth [place] 00 daily. Medical Branch ibuprofen 2020-0 Yes [id number] 800mg Take 1 U nivers 800 mg 9-18 tablet by ity of tablet 00:00: mouth [place] 00 every 6 Medical (six) Branch hours as needed for Pain (scale 4-6). levoFLOXaci 2020-0 Yes [id number] 750mg Take 1 Univers n 750 mg 9-18 tablet by ity of tablet 00:00: mouth [place] 00 every 24 Medical (twenty-fo Branch ur) hours. loperamide 2020-0 Yes [id number] 2mg Take 1 U nivers 2 mg 9-18 capsule by ity of capsule 00:00: mouth [place] 00 daily. Medical Branch acetaminoph No [id number] 650mg Take 2 Univers en 325 mg 9-18 09-19 tablets by ity of tablet 00:00: 04:59 mouth [place] 00 :00 every 6 Medical (six) Branch hours as needed for Pain (scale 1-3). acetaminoph No [id number] 650mg Take 2 Univers en 325 mg 9-18 09-19 tablets by ity of tablet 00:00: 04:59 mouth [place] 00 :00 every 6 Medical (six) Branch hours as needed for Pain (scale 1-3). acetaminoph No [id number] 650mg Take 2 Univers en 325 mg 9-18 09-19 tablets by ity of tablet 00:00: 04:59 mouth [place] 00 :00 every 6 Medical (six) Branch hours as needed for Pain (scale 1-3). acetaminoph No [id number] 650mg Take 2 Univers en 325 mg 9-18 09-19 tablets by ity of tablet 00:00: 04:59 mouth [place] 00 :00 every 6 Medical (six) Branch hours as needed for Pain (scale 1-3). acetaminoph No [id number] 650mg Take 2 Univers en 325 mg 9-18 09-19 tablets by ity of tablet 00:00: 04:59 mouth [place] 00 :00 every 6 Medical (six) Branch hours as needed for Pain (scale 1-3). acetaminoph No [id number] 650mg Take 2 Univers en 325 mg 9-18 09-19 tablets by ity of tablet 00:00: 04:59 mouth [place] 00 :00 every 6 Medical (six) Branch hours as needed for Pain (scale 1-3). acetaminoph No [id number] 650mg Take 2 [facility] en 325 mg 9-18 09-19 tablets by ity of tablet 00:00: 04:59 mouth [place] 00 :00 every 6 Medical (six) Branch hours as needed for Pain (scale 1-3). acetaminoph No [id number] 650mg Take 2 Univers en 325 mg 9-18 09-19 tablets by ity of tablet 00:00: 04:59 mouth [place] 00 :00 every 6 Medical (six) Branch hours as needed for Pain (scale 1-3). acetaminoph No [id number] 650mg Take 2 Univers en 325 mg 9-18 09-19 tablets by ity of tablet 00:00: 04:59 mouth [place] 00 :00 every 6 Medical (six) Branch hours as needed for Pain (scale 1-3). acetaminoph No [id number] 650mg Take 2 Univers en 325 mg 9-18 09-19 tablets by ity of tablet 00:00: 04:59 mouth [place] 00 :00 every 6 Medical (six) Branch hours as needed for Pain (scale 1-3). acetaminoph No [id number] 650mg Take 2 Univers en 325 mg 9-18 09-19 tablets by ity of tablet 00:00: 04:59 mouth [place] 00 :00 every 6 Medical (six) Branch hours as needed for Pain (scale 1-3). acetaminoph No [id number] 650mg Take 2 Univers en 325 mg 9-18 09-19 tablets by ity of tablet 00:00: 04:59 mouth [place] 00 :00 every 6 Medical (six) Branch hours as needed for Pain (scale 1-3). acetaminoph No [id number] 650mg Take 2 Univers en 325 mg 9-18 09-19 tablets by ity of tablet 00:00: 04:59 mouth [place] 00 :00 every 6 Medical (six) Branch hours as needed for Pain (scale 1-3). acetaminoph No [id number] 650mg Take 2 Univers en 325 mg 9-18 10-08 tablets by ity of tablet 00:00: 00:00 mouth [place] 00 :00 every 6 Medical (six) Branch hours as needed for Pain (scale 1-3). ibuprofen 2019- No [id number] 800mg Take 1 [facility] 800 mg 9-18 10-08 tablet by ity of tablet 00:00: 00:00 mouth [place] 00 :00 every 6 Medical (six) Branch hours as needed for Pain (scale 4-6). levoFLOXaci 2019- No [id number] 750mg Take 1 Univers n 750 mg 9-18 10-08 tablet by ity o f tablet 00:00: 00:00 mouth [place] 00 :00 every 24 Medical (twenty-fo Branch ur) hours. loperamide 2019- No [id number] 2mg Take 1 Univers 2 mg 9-18 10-08 capsule by ity of capsule 00:00: 00:00 mouth [place] 00 :00 daily. Medical Branch HYDROcodone No [id number] 1{tbl} Take 1 U nivers -acetaminop 9-18 09-26 tablet by it y of hen 5-325 00:00: 04:59 mouth [place] mg tablet 00 :00 every 6 Medical (six) Branch hours as needed for Pain (scale 4-6) for up to 7 days. Indication s: acute pain HYDROcodone No [id number] 1{tbl} Take 1 U nivers -acetaminop 9-18 09-26 tablet by it y of hen 5-325 00:00: 04:59 mouth [place] mg tablet 00 :00 every 6 Medical (six) Branch hours as needed for Pain (scale 4-6) for up to 7 days. Indication s: acute pain HYDROcodone No [id number] 1{tbl} Take 1 U nivers -acetaminop 9-18 09-26 tablet by it y of hen 5-325 00:00: 04:59 mouth [place] mg tablet 00 :00 every 6 Medical (six) Branch hours as needed for Pain (scale 4-6) for up to 7 days. Indication s: acute pain HYDROcodone No 4647 1{tbl} Take 1 U nivers -acetaminop 9-18 09-26 tablet by it y of hen 5-325 00:00: 04:59 mouth [place] mg tablet 00 :00 every 6 Medical (six) Branch hours as needed for Pain (scale 4-6) for up to 7 days. Indication s: acute pain HYDROcodone 2019- No 4647 1{tbl} Take 1 U nivers -acetaminop 9-18 09-26 tablet by it y of hen 5-325 00:00: 04:59 mouth [place] mg tablet 00 :00 every 6 Medical (six) Branch hours as needed for Pain (scale 4-6) for up to 7 days. Indication s: acute pain HYDROcodone No 4647 1{tbl} Take 1 U nivers -acetaminop 9-18 09-26 tablet by it y of hen 5-325 00:00: 04:59 mouth [place] mg tablet 00 :00 every 6 Medical (six) Branch hours as needed for Pain (scale 4-6) for up to 7 days. Indication s: acute pain levoFLOXaci 2020-0 Yes 750mg 750 mg, Un piyush n 17 Oral, Q24H ity of (LEVAQUIN) 00:00: ABX, First [place] tablet 750 00 dose on Medica l mg Thu Branch 05/09/20 at 1900, Until Discontinu ed, JOÃO
Re ason for Anti-Infec tive: Documented Infection< br>Documen dain Infection Site: Abdominal< br>Duratio n of Therapy: 14 days metroNIDAZO 2019-0 2020- No 500mg 500 mg, U nivers LE (FLAGYL) 05-09 Oral, Q8H it y of tablet 500 21:30: 13:14 ABX, First [place] mg 00 :28 dose on Medical [facility] Branch 05/09/20 at 1630, Until Discontinu ed, Routine
Reason for Anti-Infec tive: Documented Infection< br>Documen dain Infection Site: Abdominal< br>Duratio n of Therapy: 14 days magnesium 2019-0 2020- No 4g 4 g, IV Univ ers sulfate in 05-08 Piggyback, it y of water 4 12:30: 12:54 ONCE, 1 [place] gram/50 mL 00 :00 dose, Tue Medi mariusz (8 %) IV 05/08/20 at Branc h Piggyback 4 0730, g Routine loperamide 2019-0 Yes 2mg 2 mg, Univer s (IMODIUM -15 Oral, Q4H, ity o f A-D) 01:00: First dose [place] capsule 2 00 on Mon Medical mg 05/07/20 at Branch 2000, Until Discontinu ed, Routine lactated 2020-0 2020- No 1000mL at 999 Univ ers ringers IV 05-07- mL/hr, ity of infusion 22:15: 22:21 1,000 mL, [place] 1,000 mL 00 :00 Intravenou Medic al s, ONCE, 1 Branch dose, 05/07/20 at 1715, Routine lactated 2020-0 2020- No 1000mL at 999 Univ ers ringers IV 05-07 mL/hr, ity of infusion 13:15: 14:09 1,000 mL, [place] 1,000 mL 00 :00 Intravenou Medic al s, ONCE, 1 [place] dose, [facility] 05/07/20 at 0815, Routine HYDROcodone 2020-0 Yes 1{tbl} 1 tablet, Univers -acetaminop 05-07 Oral, ity of hen (NORCO 13:00: Q6HPRN, [place] 5) 5-325 mg 00 Starting [facility] tablet 1 Mon [place] tablet 05/07/20 at 0800, Until Discontinu ed, Routine, Pain (scale 4-6) magnesium 2020-0 2020- No 2g 2 g, IV [facility] ers sulfate in 05-07 Piggyback, it y of water 2 13:00: 15:10 ONCE, 1 [place] gram/50 mL 00 :00 dose, [facility] (4 %) 05/07/20 at [place] infusion 2 0800, g Routine ibuprofen 2020-0 Yes 800mg 800 mg, [facility] ers (IBU) 05-07 Oral, ity of tablet 800 12:45: Q6HPRN, [place] mg 22 Starting [facility] 05/07/20 at 0745, Until Discontinu ed, Routine, Pain (scale 4-6) FENTanyl PF 2020-0 2020- No Slow IV Un piyush (SUBLIMAZE 05-05 Push, PRN, it y of (PF)) 18:53: 20:05 Starting [place] injection 39 :03 [facility] 05/05/20 at Branch 1353, Until Discontinu ed, Routine lidocaine 2019-0 2020- No PRN, Univers 1% (PF) 05-05 Starting ity of (XYLOCAINE) 18:26: 18:26 [facility] [place] injection 34 :34 05/05/20 at [facility] 1326, Branch Until Discontinu ed, Routine NaCl 0.9% 2020-0 2020- No CONTINUOUS U nivers (NS) bolus 05-05 PRN, ity of infusion 18:15: 18:15 [place] 06 :06 [facility] 05/05/20 at Branch 1315, Until Discontinu ed, STAT D5W 0.45% 2020-0 2020- No IV Univers NaCl 9-12 09-13 Infusion, ity of (1/2NS) 1 L 09:30: [...] First dose Medica l I.V.) RTU on Sat Branch IV infusion 05/05/20 at 500 mg 0230, Until Discontinu ed, 100 mL
Reas on for Anti-Infec tive: Empiric Therapy for Suspected Infection< br>Empiric Therapy Site: Skin / Soft tissue
Duration of therapy: 7 days levoFLOXaci 2020- No 750mg 750 mg, IV Univers [...] br>Duratio n of Therapy: 7 days morpHINE 2020- No 2mg 2 mg, Slow Un piyush injection 2 05-05 IV Push, ity of mg 06:15: 06:14 Q4HPRN, [place] 31 :31 Starting Medical Sat Branch 05/05/20 at 0115, Until 05/07/20 at 0114, Routine, Pain (scale 7-10) HYDROcodone 2019-0 2020- No 1{tbl} 1 tablet, Univers -acetaminop 05-05 Oral, ity of hen (NORCO 06:15: 12:45 Q4HPRN, [place] 5) 5-325 mg 28 :43 Starting Medi mariusz tablet 1 Sat Branch tablet 05/05/20 at 0115, Until 05/07/20 at 0745, Routine, Pain (scale 4-6) acetaminoph 2020-0 Yes 650mg 650 mg, Un piyush en 05-05 Oral, ity of (TYLENOL) 06:15: Q6HPRN, [place] tablet 650 23 Starting Medic al mg Sat Branch 05/05/20 at 0115, Until Discontinu ed, Routine, Pain (scale 1-3) NaCl 0.9% 2020-0 2020- No 1000mL at [...] 1 dose, 05/05/20 at 0115, STAT iohexol 2020-0 2020- No 120mL 120 mL, Unive rs (OMNIPAQUE 05-05 Intravenou it y of 350 04:00: 03:48 s, ONCE, 1 [place] BULK-150 00 :00 dose, Fri Medica l mL) 05/04/20 at Branch injection 2300, 120 mL Routine NaCl 0.9% 2020-0 2020- No 1000mL at 999 Uni vers (NS) bolus 05-05 mL/hr, ity of infusion 03:30: 05:46 1,000 mL, [place] 1,000 mL 00 :00 IV Medical Infusion, Branch ONCE, 1 dose, 05/04/20 at 2230, STAT FENTanyl PF 2020-0 2020- No 50ug 50 mcg, Un piyush (SUBLIMAZE 05-05 Slow IV ity o f (PF)) 03:15: 03:19 Push, [place] injection 00 :00 ONCE, 1 Medical 50 mcg dose, Fri [place] 05/04/20 at 2215, Routine ondansetron 2020-0 2020- No 4mg 4 mg, Slow Univers (ZOFRAN 05-05 IV Push, ity of (PF)) 03:15: 03:18 ONCE, 1 [place] injection 4 00 :00 dose, Fri Med ical mg 05/04/20 at Branch 2215, JOÃO ketorolac 2020-0 2020- No 60mg 60 mg, Unive rs (TORADOL) 05-03 0910 Intramuscu ity of injection 05:00: 05:14 lar, [...] Take 1 Univer s (ULTRAM) 50 9-10 -18 tablet by it y of mg tablet 00:00: 00:00 mouth [place] 00 :00 every 6 Medical (six) Branch hours as needed for Pain (scale 7-10). Indication s: acute pain ibuprofen 2020-0 Yes [id number] 400mg Take 2 Univers 200 mg 9-08 tablets by ity of tablet 00:00: mouth [place] 00 every 6 Medical (six) Branch hours as needed for Pain (scale 1-3). ibuprofen 2020-0 Yes [id number] 400mg Take 2 Univers 200 mg 9-08 tablets by ity of tablet 00:00: mouth [place] 00 every 6 Medical (six) Branch hours as needed for Pain (scale 1-3). ibuprofen 2020-0 Yes [id number] 400mg Take 2 Univers 200 mg 9-08 tablets by ity of tablet 00:00: mouth [place] 00 every 6 Medical (six) Branch hours as needed for Pain (scale 1-3). ibuprofen 2020-0 Yes [id number] 400mg Take 2 Univers 200 mg 9-08 tablets by ity of tablet 00:00: mouth [place] 00 every 6 Medical (six) Branch hours as needed for Pain (scale 1-3). ibuprofen 2020-0 Yes [id number] 400mg Take 2 Univers 200 mg 9-08 tablets by ity of tablet 00:00: mouth [place] 00 every 6 Medical (six) Branch hours as needed for Pain (scale 1-3). ibuprofen 2020-0 Yes [id number] 400mg Take 2 Univers 200 mg 9-08 tablets by ity of tablet 00:00: mouth [place] 00 every 6 Medical (six) Branch hours as needed for Pain (scale 1-3). ibuprofen 2020-0 Yes [id number] 400mg Take 2 Univers 200 mg 9-08 tablets by ity of tablet 00:00: mouth [place] 00 every 6 Medical (six) Branch hours as needed for Pain (scale 1-3). acetaminoph 2020-0 2021- No [id number] 650mg Take 2 Univers en 9-08 09-09 tablets by ity of (TYLENOL) 00:00: 04:59 mouth [place] 325 mg 00 :00 every 6 Medical tablet (six) Branch hours as needed for Pain (scale 4-6). acetaminoph 2020-0 1- No [id number] 650mg Take 2 Univers en 9-08 09-09 tablets by ity of (TYLENOL) 00:00: 04:59 mouth [place] 325 mg 00 :00 every 6 Medical tablet (six) Branch hours as needed for Pain (scale 4-6). acetaminoph 2019-2020- No [id number] 650mg Take 2 Univers en 05-01 tablets by ity of (TYLENOL) 00:00: 04:59 mouth [place] 325 mg 00 :00 every 6 Medical tablet (six) Branch hours as needed for Pain (scale 4-6). acetaminoph 2019-2020- No [id number] 650mg Take 2 Univers en 05-01 tablets by ity of (TYLENOL) 00:00: 04:59 mouth [place] 325 mg 00 :00 every 6 Medical tablet (six) Branch hours as needed for Pain (scale 4-6). acetaminoph 2020- No [id number] 650mg Take 2 Univers en 05-01 tablets by ity of (TYLENOL) 00:00: 04:59 mouth [place] 325 mg 00 :00 every 6 Medical tablet (six) Branch hours as needed for Pain (scale 4-6). acetaminoph 2020- No [id number] 650mg Take 2 Univers en 05-01 tablets by ity of (TYLENOL) 00:00: 04:59 mouth [place] 325 mg 00 :00 every 6 Medical tablet (six) Branch hours as needed for Pain (scale 4-6). acetaminoph No [id number] 650mg Take 2 Univers en 05-01 tablets by ity of (TYLENOL) 00:00: 04:59 mouth [place] 325 mg 00 :00 every 6 Medical tablet (six) Branch hours as needed for Pain (scale 4-6). ciprofloxac 2019- No [id number] 750mg Take 1 Univers in HCl 750 05-01 tablet by ity of mg tablet 00:00: 04:59 mouth [place] 00 :00 every 12 Medical (twelve) Branch hours for 14 days. amoxicillin 2019-2019- No [id number] 1{tbl} Take 1 Univers -clavulanat 05-01 tablet by it y of e 00:00: 04:59 mouth 2 [place] (AUGMENTIN) 00 :00 (two) Medical 875-125 mg times Branch per tablet daily for 14 days. ciprofloxac 2019- No [id number] 750mg Take 1 Univers in HCl 750 05-01 tablet by ity of mg tablet 00:00: 04:59 mouth [place] 00 :00 every 12 Medical (twelve) Branch hours for 14 days. amoxicillin 2019- 2020- No [id number] 1{tbl} Take 1 Univers -clavulanat 05-01 tablet by it y of e 00:00: 04:59 mouth 2 [place] (AUGMENTIN) 00 :00 (two) Medical 875-125 mg times Branch per tablet daily for 14 days. ciprofloxac 2019-2019- No [id number] 750mg Take 1 Univers in HCl 750 05-01 tablet by ity of mg tablet 00:00: 04:59 mouth [place] 00 :00 every 12 Medical (twelve) Branch hours for 14 days. amoxicillin 2019-2019- No [id number] 1{tbl} Take 1 Univers -clavulanat 05-01 tablet by it y of e 00:00: 04:59 mouth 2 [place] (AUGMENTIN) 00 :00 (two) Medical 875-125 mg times Branch per tablet daily for 14 days. ciprofloxac 2019-0 2019- No [id number] 750mg Take 1 Univers in HCl 750 05-01 tablet by ity of mg tablet 00:00: 04:59 mouth [place] 00 :00 every 12 Medical (twelve) Branch hours for 14 days. amoxicillin 2019-2019- No [id number] 1{tbl} Take 1 Univers -clavulanat 05-01 tablet by it y of e 00:00: 04:59 mouth 2 [place] (AUGMENTIN) 00 :00 (two) Medical 875-125 mg times Branch per tablet daily for 14 days. ciprofloxac 2019-0 2019- No [id number] 750mg Take 1 Univers in HCl 750 05-01 tablet by ity of mg tablet 00:00: 04:59 mouth [place] 00 :00 every 12 Medical (twelve) Branch hours for 14 days. amoxicillin 2019-2019- No [id number] 1{tbl} Take 1 Univers -clavulanat 05-01 tablet by it y of e 00:00: 04:59 mouth 2 [place] (AUGMENTIN) 00 :00 (two) Medical 875-125 mg times Branch per tablet daily for 14 days. ciprofloxac 2020-0 2020- No [id number] 750mg Take 1 Univers in HCl 750 05-01 tablet by ity of mg tablet 00:00: 04:59 mouth [place] 00 :00 every 12 Medical (twelve) Branch hours for 14 days. amoxicillin 2019-0 2020- No [id number] 1{tbl} Take 1 Univers -clavulanat 05-01 tablet by it y of e 00:00: 04:59 mouth 2 [place] (AUGMENTIN) 00 :00 (two) Medical 875-125 mg times Branch per tablet daily for 14 days. ciprofloxac 2019- 2020- No [id number] 750mg Take 1 Univers in HCl 750 05-01 tablet by ity of mg tablet 00:00: 04:59 mouth [place] 00 :00 every 12 Medical (twelve) Branch hours for 14 days. amoxicillin 2019-2019- No [id number] 1{tbl} Take 1 Univers -clavulanat 05-01 tablet by it y of e 00:00: 04:59 mouth 2 [place] (AUGMENTIN) 00 :00 (two) Medical 875-125 mg times Branch per tablet daily for 14 days. acetaminoph 2020-0 2020- No [id number] 650mg Take 2 Univers en 05-01 tablets by ity of (TYLENOL) 00:00: 00:00 mouth [place] 325 mg 00 :00 every 6 Medical tablet (six) Branch hours as needed for Pain (scale 4-6). ibuprofen 2019-0 2020- No [id number] 400mg Take 2 Univers 200 mg 05-01 tablets by ity of tablet 00:00: 00:00 mouth [place] 00 :00 every 6 Medical (six) Branch hours as needed for Pain (scale 1-3). ciprofloxac 2019-0 2020- No [id number] 750mg Take 1 Univers in HCl 750 05-01 tablet by ity of mg tablet 00:00: 00:00 mouth [place] 00 :00 every 12 Medical (twelve) Branch hours for 14 days. amoxicillin 2019-0 2020- No [id number] 1{tbl} Take 1 Univers -clavulanat 05-01 tablet by it y of e 00:00: 00:00 mouth 2 [place] (AUGMENTIN) 00 :00 (two) Medical 875-125 mg times Branch per tablet daily for 14 days. lactated 2020-0 2020- No 1000mL at 999 Univ ers ringers IV 04-25 09-02 mL/hr, ity of infusion 14:15: 13:31 1,000 mL, [place] 1,000 mL 00 :00 Intravenou Medic al s, ONCE, 1 Branch dose, 04/25/20 at 0915, Routine amoxicillin 2020-0 Yes 1{tbl} 1 tablet, Univers -clavulanat 04-25 Oral, ity of e 01:00: Q12H, [place] (AUGMENTIN) 00 First dose Me dical 875-125 [...] at 0900, Until Discontinu ed, Routine iohexol 2020-0 2020- No 100mL 100 mL, Unive rs (OMNIPAQUE 04-23 Intravenou it y of 350 23:30: 23:30 s, ONCE, 1 [place] BULK-100 00 :00 dose, Mon Medica l mL) 04/23/20 at Branch injection 1830, 100 mL Routine lactated 2020-0 2020- No 1000mL at 125 Univ ers ringers IV 04-23 09-01 mL/hr, ity of infusion 23:15: 16:44 1,000 mL, [place] 1,000 mL 00 :20 IV Medical Infusion, Branch CONTINUOUS , Starting 04/23/20 at 1815, Until Thu04/24/20 at 1144, Routine NaCl 0.9% 2020-0 2020- No 1000mL at 999 Uni vers (NS) bolus 04-23 mL/hr, ity of infusion 16:30: 16:14 1,000 mL, [place] 1,000 mL 00 :00 IV Medical Piggyback, [place] ONCE, 1 dose, 04/23/20 at 1130, STAT micafungin 2020- No 100mg 100 mg, IV Univers (MYCAMINE) 04-22 Piggyback, it y of 100 mg in 13:00: 15:59 Q24H ABX, [place] NaCl 0.9% 00 :00 1 dose, Medical (NS) 100 mL First dose Br anch MINI-BAG (after last reorder) on 04/22/20 at 0800, 100 mL
Rest ricted use approved by: [employer]< br>Reason for Anti-Infec tive: Documented Infection< br>Documen dain Infection Site: Abdominal< br>Duratio n of Therapy: 7 days ciprofloxac 2019-0 Yes 750mg 750 mg, Un piyush in HCl 04-21 Oral, ity of (CIPRO) 23:00: Q12HA2, [place] tablet 750 00 First dose Med ical mg on [facility] [place] 04/21/20 at 1800, Until Discontinu ed, JOÃO
Re ason for Anti-Infec tive: Documented Infection< br>Documen dain Infection Site: Abdominal< br>Duratio n of Therapy: 7 days aspirin 2019-0 Yes 81mg 81 mg, Univers chewable 04-21 Oral, ity of tablet 81 14:00: DAILY, [place] mg 00 First dose Medical on [facility] [place] 04/21/20 at 0900, Until Discontinu ed, Routine multivitami 2019-0 Yes 1{tbl} 1 tablet, Univers n tablet 1 04-21 Oral, ity of tablet 14:00: DAILY, [place] 00 First dose Medical on [facility] [place] 04/21/20 at 0900, Until Discontinu ed, Routine amoxicillin 2019- 2020- No 500mg 500 mg, U nivers -pot 04-21 Oral, TID, ity of clavulanate 13:00: 14:44 First dose [place] 500 mg 00 :32 on [facility] (AUGMENTIN 04/21/20 at [facility] 500) 0800, 500-125 mg Until tablet 500 Discontinu mg ed, JOÃO
Re ason for Anti-Infec tive: Documented Infection< br>Documen dain Infection Site: Abdominal< br>Duratio n of Therapy: 7 days ciprofloxac 2019-2019- No 400mg 400 mg, IV Univers in [...] Q6HPRN, [place] mg 23 :14 Starting [facility] Fri Branch 04/20/20 at 1031, Until Thu05/02/20 at 0612, Routine, Pain (scale 7-10) D5W 0.45% 2019- No IV Univers NaCl 04-19 Infusion, ity of (1/2NS) 1 L 16:15: 11:41 at 20 [place] + KCL 20 00 :10 mL/hr, [facility] mEq CONTINUOUS Branch , Starting [place] 04/19/20 at 1115, Until Thu04/20/20 at 0641, Routine pantoprazol 2019-0 Yes 40mg 40 mg, Univ ers e 04-19 Oral, ity of (PROTONIX) 14:00: DAILY, [place] EC tablet 00 First dose Medi mariusz 40 mg on [facility] Branch 04/19/20 at 0900, Until Discontinu ed, Routine acetaminoph 2020-0 Yes 500mg 500 mg, Un piyush en 04-19 Oral, ity of (TYLENOL) 11:00: Q6HPRN, [place] tablet 500 00 Starting Medic al mg [facility] Branch 04/19/20 at 0600, Until Discontinu ed, Routine, Pain (scale 4-6), Temp > 38.5 C D5W 0.45% 0 2020- No IV Univers NaCl 04-18 Infusion, ity of (1/2NS) 1 L 15:00: 16:05 at 42 [place] + KCL 20 00 :11 mL/hr, Medical mEq CONTINUOUS Branch , Starting Thu04/18/20 at 1000, Until [place] 04/19/20 at 1105, Routine ciprofloxac 2020- No 500mg 500 mg, U nivers in HCl 04-18 Oral, ity of (CIPRO) 01:45: 15:30 Q12HA2, [place] tablet 500 00 :34 First dose Med ical mg on Branch 04/17/20 at 2045, Until Discontinu ed, JOÃO
Re ason for Anti-Infec tive: Documented Infection< br>Documen dain Infection Site: Abdominal< br>Duratio n of Therapy: 7 days micafungin 2019- No 100mg 100 mg, IV Univers (MYCAMINE) 04-17 Piggyback, it y of 100 mg in 19:45: 20:45 Q24H ABX, [place] NaCl 0.9% 00 :00 5 doses, Medica l (NS) 100 mL First dose Br anch MINI-BAG (after last reorder) on Thu04/17/20 at 1445, Last dose on Thu04/21/20 at 1445, 100 mL
Rest ricted use approved by: [employer]< br>Reason for Anti-Infec tive: Documented Infection< br>Documen dain Infection Site: Abdominal< br>Duratio n of Therapy: 7 days traMADoL 2019- No 50mg 50 mg, Univer s (ULTRAM) 04-17 Oral, ity of tablet 50 17:11: 15:31 Q6HPRN, [place] mg 09 :33 Starting Medical Thu Branch 04/17/20 at 1211, Until Thu04/20/20 at 1031, Routine, Pain (scale 4-6), Pain (scale 7-10) aspirin 2019- 2020- No 325mg 325 mg, Unive rs tablet 325 04-17 Oral, ity of mg 14:00: 15:33 DAILY, [place] 00 :03 First dose Medical on [facility] 04/17/20 at 0900, Until Discontinu ed, Routine lidocaine 2020-0 2020- No PRN, Univers 1% (PF) 04-16 Starting ity of (XYLOCAINE) 21:17: 21:17 Mon [place] injection 53 :53 04/16/20 at [facility] 1617, Branch Until 04/16/20 at 1617, Routine FENTanyl PF 2020- No Slow IV Un piyush (SUBLIMAZE 04-16 Push, PRN, it y of (PF)) 21:16: 21:16 Starting [place] injection 07 :07 [facility] Medical 04/16/20 at Branch 1616, Until 04/16/20 at 1616, Routine midazolam 2020- No IV Push, Uni vers (VERSED) 04-16 PRN, ity of injection 21:16: 21:16 Starting [place] 07 :07 [facility] Medical 04/16/20 at [place] 1616, Until 04/16/20 at 1616, Routine piperacilli 2019- No 3.375g 3.375 g, Univers n-tazobacta 04-16 IV ity of m (ZOSYN) 18:15: 12:34 [place]back, [place] 3.375 g in 00 :59 Q6H ABX, Medic al NaCl 0.9% First dose Bran ch (NS) 100 mL on Thu MINI-BAG 04/16/20 at 1315, Until Discontinu ed, 100 mL
R mitali for Anti-Infec tive: Documented Infection< br>Documen dain Infection Site: Abdominal< br>Duratio n of Therapy: 7 days iohexol 2019- No 120mL 120 mL, Unive rs (OMNIPAQUE 04-16 Intravenou it y of 350 07:15: 06:55 s, ONCE, 1 [place] BULK-150 00 :00 dose, Mon Medica l mL) 04/16/20 at [place] injection 0215, 120 mL Routine DAPTOmycin 2019- No 500mg 500 mg, IV Univers (CUBICIN) 04-16 Piggyback, ity of 500 mg in 02:15: 01:11 Q24H ABX, [place] NaCl 0.9% 00 :00 4 doses, Medica l (NS) First dose Branch piggyback (after last reorder) on 8/23/20 at 2115, Last dose on Thu04/18/20 at 2115, 100 mL
Reas on for Anti-Infec tive: Empiric Therapy for Suspected Infection< br>Empiric Therapy Site: Abdominal< br>Duratio n of therapy: 7 days
Re stricted use approved by: [employer] lactated 2019- No 1000mL at 100 Univ ers ringers IV 04-14-01 mL/hr, ity of infusion 12:01: 17:52 1,000 mL, [place] 1,000 mL 00 :54 IV Medical Infusion, Branch TITRATE, Starting 04/14/20 at 0701, Until Thu04/24/20 at 1252, Routine D5W 0.45% 2019- No IV Univers NaCl 04-14 Infusion, ity of (1/2NS) 1 L 11:15: 14:50 at 84 [place] + KCL 20 00 :18 mL/hr, Medical mEq CONTINUOUS Branch , Starting 04/14/20 at 0615, Until Thu04/18/20 at 0950, Routine FENTanyl PF 2019- No 25ug 25 mcg, Un piyush (SUBLIMAZE 04-13 Slow IV ity o f (PF)) 22:09: 17:11 Push, [place] injection 26 :22 Q3HPRN, Medical 25 mcg Starting Branch Thu04/13/20 at 1709, Until Thu04/17/20 at 1211, Routine, Pain (scale 7-10) FENTanyl PF 2019- No Slow IV Un piyush (SUBLIMAZE 04-13 Push, PRN, it y of (PF)) 19:31: 19:55 Starting [place] injection 48 :00 Fri Medical 04/13/20 at Branch 1431, Until Thu04/13/20 at 1455, Routine midazolam 2019- No IV Push, Uni vers (VERSED) 04-13 PRN, ity of injection 19:31: 19:55 Starting [place] 36 :00 Fri Medical 04/13/20 at Branch 1431, Until Thu04/13/20 at 1455, Routine DAPTOmycin 2019- No 500mg 500 mg, IV Univers (CUBICIN) 8-21 08-25 Piggyback, ity of 500 mg in 01:00: 00:59 Q24H ABX, [place] NaCl 0.9% 00 :00 4 doses, Medica l (NS) First dose Branch piggyback (after last modificati on) on [place] 04/12/20 at 1999, Last dose on 04/15/20 at 1999, 100 mL
Reas on for Anti-Infec tive: [...] MINI-BAG modificati on) on [place] 04/12/20 at 1999, Until Discontinu ed, 100 mL
Reas on for Anti-Infec tive: Documented Infection< br>Documen dain Infection Site: Abdominal< br>Duratio n of Therapy: 7 days pantoprazol 2020- No 40mg 40 mg, IV Univers e 04-12 Piggyback, ity of (PROTONIX) 22:45: 14:50 Q24H, [place] 40 mg in 00 :18 First dose Medic al NaCl 0.9% on [place] Branch (NS) 100 mL 04/12/20 at MINI-BAG 1745, Until Discontinu ed, 100 mL micafungin 2020- No 100mg 100 mg, IV Univers [...] Branch injection 1630, 100 mL Routine piperacilli No 3.375g 3.375 g, Univers n-tazobacta 04-12 [...] br>Duratio n of therapy: 72 hours ketorolac No 15mg 15 mg, Unive rs (TORADOL) 04-12 Slow IV ity of injection 17:00: 17:03 Push, ONCE [place] 15 mg 00 :00 NOW, 1 Medical dose, [place] Branch 04/12/20 at 1200, Routine
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 : BIA PEDRO D5W 0.45% 2019- No IV Univers NaCl 04-11 Infusion, ity of (1/2NS) 1 L 14:00: 21:44 at 42 [place] + KCL 20 00 :46 mL/hr, Medical mEq CONTINUOUS Branch , Starting Wed 20 at 0900, Until [place] 04/12/20 at 1644, Routine pantoprazol 2020-0 2020- No 40mg 40 mg, Uni vers e 04-11 Oral, ity of (PROTONIX) 14:00: 21:44 DAILY, [place] EC tablet 00 :46 First dose Medi mariusz 40 mg on Thu Branch 04/11/20 at 0900, Until Discontinu ed, Routine KCL 2020-0 2020- No IV Univers (POTASSIUM 04-11 Infusion, ity of CHLORIDE) 13:52: 11:01 TITRATE, [place] 20 mEq in 06 :54 Starting Medica l lactated Thu Branch ringers 04/11/20 at 1,000 mL 0852, infusion Until 04/14/20 at 0601, 1,000 mL, at 50 mL/hr nicotine 2020-0 Yes 1{patch 1 Patch, Un piyush (NICODERM) 04-11 } Topical, ity o f 7 mg/24 hr 13:15: Administer [place] patch 1 00 over 24 Medical Patch Hours, Branch Q24H, First dose on Thu04/11/20 at 0815, Until Discontinu ed, Routine enoxaparin 2020-0 2020- No 40mg 40 [...] Thu Medi mariusz (4 %) 04/11/20 at Branch infusion 2 0645, g Routine Total 2020-0 2020- No at 40 Univers Parenteral 04-10 [...] dose, Tue Medi mariusz (8 %) IV 04/10/20 at [facility] h Piggyback 4 0830, g Routine DAPTOmycin 2019- No 500mg 500 mg, IV Univers (CUBICIN) 04-10 Piggyback, ity of 500 mg in 06:00: 15:57 Q24H ABX, [place] NaCl 0.9% 00 :33 First dose Medi mariusz (NS) on [facility] piggyback 04/10/20 at 0100, Until Discontinu ed, 100 mL
R mitali for Anti-Infec tive: Documented Infection< br>Documen dain Infection Site: Abdominal< br>Duratio n of Therapy: 7 days
Re stricted use approved by: [employer] ibuprofen 2019- No 600mg 600 mg, Uni vers (IBU) 04-10 Oral, Q8H, ity of tablet 600 03:00: 10:59 First dose [place] mg 00 :06 on [facility] Medical 04/09/20 at Branch 2200, Until Discontinu ed, Routine micafungin 2019- No 100mg 100 mg, IV Univers (MYCAMINE) 04-10 Piggyback, it y of 100 mg in 02:45: 15:57 Q24H ABX, [place] NaCl 0.9% 00 :33 First dose Medi mariusz (NS) 100 mL on [facility] MINI-BAG 04/09/20 at 2145, Until Discontinu ed, 100 mL
R estricted use approved by: [employer]< br>Reason for Anti-Infec tive: Documented Infection< br>Documen dain Infection Site: Abdominal< br>Duratio n of Therapy: 7 days ampicillin- 2020- No 3g 3 g, IV Un piyush sulbactam 04-10 Piggyback, ity of (UNASYN) 3 02:45: 16:18 Q8H ABX, [place] g in NaCl 00 :37 First dose Medi mariusz 0.9% (NS) on Mon Branch 100 mL 04/09/20 at MINI-BAG 2145, Until Discontinu ed, 100 mL
Reas on for Anti-Infec tive: Documented Infection< br>Documen dain Infection Site: Abdominal< br>Duratio n of Therapy: 7 days acetaminoph 2019- 2020- No 500mg 500 mg, U nivers en 04-09 Oral, Q6H, ity of (TYLENOL) 23:00: 10:54 First dose [place] tablet 500 00 :23 on [facility] Medical mg 04/09/20 at Branch 1800, Until Discontinu ed, Routine Total 2019- 2020- No at 85 Univers Parenteral 04-09 mL/hr, ity of Nutrition 22:00: 22:18 2,040 mL, [place] Adult 00 :00 TPNCONTINU Medical OUS, 1 Branch dose, First dose (after last reorder) on Thu04/09/20 at 1700 KCL 2019- 2020- No IV Univers (POTASSIUM 04-09 Infusion, ity of CHLORIDE) 17:43: 13:52 TITRATE, [place] 20 mEq in 20 :43 Starting Medica l lactated [facility] ringers 04/09/20 at 1,000 mL 1243, infusion Until Thu04/11/20 at 0852, 1,000 mL, at 50 mL/hr acetaminoph 2020- No 1000mg 1,000 mg, Univers en ADULT 04-09 IV ity of (OFIRMEV) 17:00: 19:44 Infusion, [place] injection 00 :03 Administer Medi mariusz 1,000 mg over 15 Branch Minutes, Q6H, 4 doses, First dose (after last reorder) on Thu04/09/20 at 1200, Last dose on Thu04/10/20 at 0600, Routine
Indicatio n: Perioperat ector Patient sodium 2020- 2020- No Topical, Univer s hypochlorit 04-09 BID, First i ty of e 0.025% 13:00: 14:50 dose on ([facility]) 00 :18 [facility] Medical solution 04/09/20 at Bran h 0800, Until Discontinu ed, Routine magnesium 2019- 2020- No 2g 2 [...] Univers en ADULT 04-08 IV ity of (OFIRMEV) 17:00: 11:15 Infusion, [place] injection 00 :00 Administer Medi mariusz 1,000 mg over 15 Branch Minutes, Q6H, 4 doses, First dose (after last modificati on) on 04/08/20 at 1200, Last dose on 04/09/20 at 0600, Routine
Indicatio n: Perioperat ector Patient acetaminoph 2019- 2020- No 1000mg 1,000 mg, Univers en ADULT 04-07 IV ity of (OFIRMEV) 23:00: 14:28 Infusion, [place] injection 00 :31 Administer Medi mariusz 1,000 mg over 15 Branch Minutes, Q6H, 4 doses, First dose (after last reorder) on 04/07/20 at 1800, Last dose on 04/08/20 at 1200, Routine
Indicatio n: Perioperat ector Patient D5W-LR IV 2019-0 2020- No 1000mL at 60 Univ ers infusion 04-07 mL/hr, IV ity o f 1,000 mL 22:45: 15:29 Infusion, [place] 00 :52 CONTINUOUS Medical , Starting Branch 04/07/20 at 1745, Until 04/08/20 at 1029, Routine Total 2020-0 2020- No at 85 Univers Parenteral 04-07 08-16 mL/hr, ity of Nutrition 22:00: 22:05 2,040 mL, [place] 00 :00 TPNCONTINU Medical OUS, 1 Branch dose, First dose on 04/07/20 at 1700 fluconazole 2020- No 400mg at 100 Un piyush (DIFLUCAN) 04-07 08-18 mL/hr, IV ity of IV 20:00: 01:35 Piggyback, [place] Piggyback 00 :07 Q24H ABX, Medic al 400 mg First dose Branch on 04/07/20 at 1500, Until Discontinu ed, JOÃO multivitami 2020- No 15mL 15 mL, Uni vers n (CENTRUM) 04-07 08-28 Enteral, ity of solution 15 14:00: 15:31 DAILY, [place] mL 00 :33 First dose Medical (after Branch last modificati on) on 04/07/20 at 0900, Until Discontinu ed, Routine heparin 2020- No 5000U 5,000 Univers (porcine) 04-07 08-19 Units, ity of injection 11:00: 11:53 Subcutaneo [place] 5,000 Units 00 :30 us, Q8H, Medi [facility] First dose Branch on 04/07/20 at 0600, Until Discontinu ed, Routine D5W-LR IV 2020- No 1000mL at 150 Uni vers infusion 04-07 08-15 mL/hr, IV ity o f 1,000 mL 08:45: 22:41 Infusion, Javi as 00 :18 CONTINUOUS Medical , Starting Branch 04/07/20 at 0345, Until 04/07/20 at 1741, Routine D5W-LR IV 0 2020- No 1000mL at 200 Uni vers infusion 04-07 08-15 mL/hr, IV ity o f 1,000 mL 03:00: 08:43 Infusion, Javi as 00 :59 CONTINUOUS Medical , Starting Branch 04/06/20 at 2200, Until 04/07/20 at 0343, Routine hydrocortis 2020- No 50mg 50 mg, IV Univers one sod 04-07 Piggyback, ity o f succ 02:00: 02:09 Q6H, First [place] (CORTEF) 50 00 :14 dose on Medic al mg in NaCl Fri Branch 0.9% (NS) 04/06/20 at piggyback 2100, Until Discontinu ed, 50 mL sodium 2019-0 Yes 1{bottl 473 mL (1 Uni vers hypochlorit 04-07 e} Bottle), ity of e 0.5% 01:00: Topical, [place] (DAKINS) 00 BID, First Medic al solution dose Branch 473 mL (after last modificati on) on Thu04/06/20 at 2000, Until Discontinu ed, Routine linezolid 2019- No 600mg 600 mg, IV Univers in dextrose 04-06 Infusion, it y of 5% (ZYVOX) 23:15: 01:35 Q12H ABX, [place] 600 mg/300 00 :07 First dose Med ical mL iv on Thu Branch infusion 04/06/20 at 600 mg 1815, [...] Routine
Indicatio n: Perioperat ector Patient albumin 2020- No 25g 25 g, IV Unive rs [...] Fri Branch 04/06/20 at 1615, JOÃO hydrocortis 2019- No 100mg 100 mg, IV Univers one sod 04-06 Piggyback, ity o f succ 21:15: 22:41 ONCE, 1 [place] (CORTEF) 00 :00 dose, Fri Medica l 100 mg in 04/06/20 at Bran NaCl 0.9% 1615, 50 (NS) mL piggyback vasopressin 2019- No .03U/mi 0.03 Un piyush (PITRESSIN 04-06 08-17 n Units/min ity of SYNTHETIC) 21:00: 11:04 (4.5 [place] 40 Units in 00 :07 mL/hr), IV Me dical NaCl 0.9% Infusion, [facility] h (NS) 100 mL CONTINUOUS infusion , Starting 04/06/20 at 1600 magnesium 2019-2019- No 4g 4 g, IV Univ ers sulfate in 04-0615 Piggyback, it y of water 4 21:00: 00:03 ONCE, 1 [place] gram/50 mL 00 :00 dose, Thu Medi mariusz (8 %) IV 04/06/20 at Branc h Piggyback 4 1600, g Routine lactated 2019-2019- No 1000mL at 999 Univ ers ringers IV 04-06-14 mL/hr, ity of infusion 20:01: 20:15 1,000 mL, [place] 1,000 mL 00 :00 Intravenou Medic al s, ONCE, 1 Branch dose, Thu04/06/20 at 1515, STAT meropenem 2019- No 1000mg 1,000 mg, Univers (MERREM) 04-06 08-18 IV ity of 1,000 mg in 19:30: 01:35 Piggyback, [place] NaCl 0.9% 00 :07 Administer Medi mariusz (NS) 100 mL over 180 Bran ch IV Minutes, piggyback Q8H ABX, First dose (after last modificati on) on Thu04/06/20 at 1430, Until Discontinu ed, JOÃO
Re stricted use approved by: [employer] [employer] [employer]
R mitali for Anti-Infec tive: Empiric Therapy for Suspected Infection< br>Empiric Therapy Site: Abdominal< br>Duratio n of therapy: 7 days D5W-LR IV 2019- No 1000mL at 125 Uni vers infusion 04-06 08-15 mL/hr, IV ity o f 1,000 mL 19:30: 02:50 Infusion, [place] 00 :43 CONTINUOUS Medical , Starting Branch Thu04/06/20 at 1430, Until Thu04/06/20 at 2150, Routine lactated 2019- 2020- No 500mL at 999 Unive rs ringers IV 04-06-14 mL/hr, 500 it y of infusion 19:30: 19:30 mL, [place] 500 mL 00 :00 Intravenou Medical s, ONCE, 1 Branch dose, Thu04/06/20 at 1430, Routine NORepinephr 2019-2019- No .05ug/k 0.05-1.5 Univers ine 4 mg [...] allowed dose, contact prescriber .
dexMEDEtomi 2019- No .2ug/kg 0.2-1.5 Univers dine 200 04-06 08-14 /h mcg/kg/hr ity o f mcg in [...] maximum allowed dose, contact prescriber .
LORazepam 2019- No 2mg 2 mg, Slow U nivers (ATIVAN) 04-06-16 IV Push, ity of injection 2 16:46: 14:23 Q4HPRN, [place] mg 54 :22 Starting Medical Fri Branch 04/06/20 at 1146, Until 04/08/20 at 0923, Routine, Agitation, Sedation lactated 2020-0 2020- No 1000mL at 150 Univ ers [...] 00 :35 Fri Medical injection 04/06/20 at [facility] 1110, Until Thu04/06/20 at 1129, Routine, Intra-op sodium 2020-0 2020- No ONCE INTRA Univ ers bicarbonate 04-06 PROCEDURE, i ty of 8.4 % (1 16:10: 16:29 [place] mEq/mL) 00 :35 Fri Medical injection 04/06/20 at [facility] 1110, Until Thu04/06/20 at 1129, Routine, Intra-op [...] as 00 :35 Fri Medical 04/06/20 at [place] 1039, Until Thu04/06/20 at 1129, Routine, Intra-op EPINEPHrine 2020-0 2020- No CONTINUOUS Univers 1 mg in 04-06 PRN, ity of NaCl 0.9% 15:29: 16:29 Starting [place] (NS) 00 :35 Fri Medical infusion 04/06/20 at [facility] 1029, Until Thu04/06/20 at 1129, Routine, Intra-op EPINEPHrine 2020-0 2020- No CONTINUOUS Univers 1 mg in 04-06 PRN, ity of NaCl 0.9% 15:29: 16:29 Starting [place] (NS) 00 :35 Thu Medical infusion 04/06/20 at [facility] 1029, Until Thu04/06/20 at 1129, Routine, Intra-op piperacilli 2020-0 2020- No CONTINUOUS Univers n-tazobacta 04-06 PRN, ity of m (ZOSYN) 14:57: 16:29 Starting [place] 3.375 g in 00 :35 Fri Medical NaCl 0.9% 04/06/20 at [facility] (NS) 100 mL 0957, infusion Until Discontinu ed, 100 mL, Intra-op piperacilli 2020-0 2020- No CONTINUOUS Univers n-tazobacta 04-06 PRN, ity of m (ZOSYN) 14:57: 16:29 Starting [place] as 3.375 g in 00 :35 [place] [facility] Medical NaCl 0.9% 04/06/20 at [facility] (NS) 100 mL 0957, infusion Until Discontinu ed, 100 mL, Intra-op EPINEPHrine 2020-0 2020- No ONCE INTRA Univers 1:1,000 (1 04-06 PROCEDURE, it y of mg/mL) 14:54: 16:29 Starting [place] (ADRENALIN) 00 :35 Fri Medical injection 04/06/20 at [facility] 0954, Until Discontinu ed, Routine, Intra-op EPINEPHrine 2020-0 2020- No ONCE INTRA Univers 1:1,000 (1 04-06 PROCEDURE, it y of mg/mL) 14:54: 16:29 Starting [place] (ADRENALIN) 00 :35 Fri Medical injection 04/06/20 at [facility] 0954, Until Discontinu ed, Routine, Intra-op NORepinephr 2020-0 2020- No CONTINUOUS Univers ine 04-06 PRN, ity of (LEVOPHED) 14:39: 16:29 [place] 4 mg in 00 :35 Fri Medical NaCl 0.9% 04/06/20 at [facility] (NS) 250 mL 0939, infusion Intra-op NORepinephr 2020-0 2020- No CONTINUOUS Univers ine 04-06 PRN, ity of (LEVOPHED) 14:39: 16:29 [place] 4 mg in 00 :35 Fri Medical NaCl 0.9% 04/06/20 at [facility] (NS) 250 mL 0939, infusion Intra-op rocuronium [...] phenylephri 2020-0 2020- No Intravenou Univers ne 04-06- s, ONCE ity of (VAZCULEP) 14:22: 16:29 INTRA [place] injection 00 :35 PROCEDURE, [facility] Starting Branch 04/06/20 at 0922, Until Thu04/06/20 at 1129, Routine, Intra-op phenylephri 2020-0 2020- No Intravenou Univers ne 04-06 s, ONCE ity of (VAZCULEP) 14:22: 16:29 INTRA [place] injection 00 :35 PROCEDURE, [facility] Starting Branch 04/06/20 at 0922, Until Thu04/06/20 at 1129, Routine, Intra-op ePHEDrine 2020-0 2020- No Slow IV Univ ers 25 mg/5 mL 04-06 Push, ONCE it y of (5 mg/mL) 14:15: 16:29 INTRA [place] syringe 00 :35 PROCEDURE, Medica l Starting Branch 04/06/20 at 0915, Until 04/06/20 at 1129, Routine, Intra-op succinylcho 2020-0 2020- [...] 04/06/20 at [facility] h injection 0915, Until Thu04/06/20 at 1129, [...] l Starting Branch 04/06/20 at 0915, Until 04/06/20 at 1129, Routine, Intra-op succinylcho 2020-0 2020- No IV Push, U nivers line 04-06 ONCE INTRA ity of (QUELICIN) 14:15: 16:29 PROCEDURE, [place] injection 00 :35 Starting Medica l Fri Branch 04/06/20 at 0915, Until Thu04/06/20 at 1129, Routine, Intra-op propofol IV 2020-0 2020- No ONCE INTRA Univers infusion 04-06 PROCEDURE, ity of 14:15: 16:29 Starting [place] 00 :35 [facility] 04/06/20 at Branch 0915, Until Thu04/06/20 at 1129, Routine, Intra-op lidocaine 2020-0 2020- No ONCE INTRA U nivers 1% 04-06 PROCEDURE, ity of (XYLOCAINE) 14:15: 16:29 Starting [place] 100 mg/10 00 :35 [facility] mL (1 %) 04/06/20 at [facility] h injection 0915, Until Thu04/06/20 at 1129, Routine, Intra-op FENTanyl PF 2020-0 2020- No ONCE INTRA Univers (SUBLIMAZE 04-06 PROCEDURE, it y of (PF)) 14:15: 16:29 Starting [place] injection 00 :35 [facility] 04/06/20 at Branch 0915, Until Thu04/06/20 at 1129, Routine, Intra-op albumin 2020-0 2020- No CONTINUOUS Uni vers (ALBUMINAR- 04-06 PRN, ity of 5) 5 % 14:10: 16:29 Starting [place] injection 00 :35 [facility] 04/06/20 at Branch 0910, Until Discontinu ed, Intra-op lactated 2020-0 2020- No CONTINUOUS Un piyush ringers IV 04-06 PRN, ity of infusion 14:10: 16:29 [place] 00 :35 [facility] 04/06/20 at Branch 0910, Until Discontinu ed, Routine, Intra-op albumin 2020-0 2020- No CONTINUOUS Uni vers (ALBUMINAR- 04-06 PRN, ity of 5) 5 % 14:10: 16:29 Starting [place] injection 00 :35 [facility] 04/06/20 at Branch 0910, Until Discontinu ed, Intra-op lactated 2020-0 2020- No CONTINUOUS Un piyush ringers IV 04-06 PRN, ity of infusion 14:10: 16:29 [place] 00 :35 [facility] 04/06/20 at Branch 0910, Until Discontinu ed, Routine, Intra-op lactated 2020-0 2020- No 1000mL at 999 Univ ers ringers IV 04-06 mL/hr, ity of infusion 12:30: 12:37 1,000 mL, [place] 1,000 mL 00 :00 Intravenou Medic al s, ONCE, 1 Branch dose, Thu04/06/20 at 0730, Routine methocarbam 2020-0 2020- No 1000mg 1,000 mg, Univers ol 04-06 Intravenou ity of (ROBAXIN) 03:00: 16:15 s, Q8H, [place] injection 00 :46 First dose Medi mariusz 1,000 mg on [place] Branch 04/05/20 at 2200, Until Discontinu ed, Routine pantoprazol 2020-0 2020- No 40mg 40 mg, IV Univers [...] Medical mEq CONTINUOUS Branch , Starting [place] 04/05/20 at 1415, Until Thu04/06/20 at 0604, Routine [...] Routine
Indicatio n: Perioperat ector Patient alvimopan 2019-0 2020- No 12mg 12 mg, Unive rs (ENTEREG) 04-04 Oral, ity of capsule 12 20:00: 20:23 DAILY AT [place] mg 00 :52 1500, 6 Medical doses, Branch First dose (after last reorder) on Thu04/04/20 at 1500, Last dose on Thu04/09/20 at 1500, Routine
Restricte d use approved by: HELENE MEDELLIN - SURGERY/GE NERAL D5W 0.45% 2019- 2020- No IV Univers NaCl 04-04 Infusion, ity of (1/2NS) 1 L 18:00: 19:13 at 42 [place] + KCL 20 00 :30 mL/hr, Medical mEq CONTINUOUS Branch , Starting Thu04/04/20 at 1300, Until Thu04/05/20 at 1413, Routine enoxaparin 2019-0 2020- No 40mg 40 [...] at 0900, Until Discontinu ed, Routine gabapentin 2019-0 2020- No 300mg 300 mg, Un piyush (NEURONTIN) 04-04 Oral, TID, i ty of 250 mg/5 mL 13:00: 16:15 First dose [place] solution 00 :46 on Thu Medical 300 mg 04/04/20 at Branch 0800, Until Discontinu ed, Routine magnesium 2019- 2020- No 4g 4 g, IV Univ ers sulfate in 04-04 Piggyback, it y of water 4 12:15: 19:01 ONCE, 1 [place] gram/50 mL 00 :00 dose, Thu Medi mariusz (8 %) IV 04/04/20 at Branc h Piggyback 4 0715, g Routine ketorolac 2019-2019- No 30mg 30 mg, Unive rs (TORADOL) 04-04 Slow IV ity of injection 05:00: 16:23 Push, Q6H, [place] 30 mg 00 :00 3 doses, Medical First dose Branch (after last modificati on) on Thu04/04/20 at 0000, Last dose on Thu04/04/20 at 1200, Routine
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
Indicatio n: Perioperat ector Patient ondansetron 2019-0 Yes 4mg 4 mg, Slow Univers (ZOFRAN 04-03 IV Push, ity of (PF)) 21:27: Q6HPRN, [place] injection 4 26 Starting Medi mariusz mg [facility] 04/03/20 at 1627, Until Discontinu ed, Routine, Nausea and Vomiting (N/V) alvimopan 2019- No 12mg 12 mg, Unive rs (ENTEREG) 04-03 Oral, ity of capsule 12 13:45: 14:02 ONCE, 1 [place] mg 00 :00 dose, [facility] 04/03/20 at Branch 0845, Routine
Restricte d use approved by: HELENE MEDELLIN - SURGERY/GE NERAL heparin 2019- No 5000U 5,000 Univers (porcine) 04-03 Units, ity of injection 12:00: 12:02 Subcutaneo [place] 5,000 Units 00 :00 , ONCE, Med ical 1 dose, [facility] 04/03/20 at 0700, Routine gabapentin 2019- No 300mg 300 mg, Un piyush (NEURONTIN) 04-03 Oral, ity of 250 mg/5 mL 12:00: 12:02 ONCE, 1 [place] solution 00 :00 dose, [facility] Medica l 300 mg 04/03/20 at Branch 0700, Routine D5W 0.45% 2019- No IV Univers NaCl 04-02 Infusion, ity of (1/2NS) 1 L 23:30: 17:59 at 125 [place] + KCL 20 00 :42 mL/hr, Medical mEq CONTINUOUS [place] , Starting 04/02/20 at 1830, Until 04/04/20 at 1259, Routine NaCl 0.9% 2019- No 1000mL at 999 Uni vers (NS) bolus 04-02 mL/hr, ity of infusion 22:45: 21:48 1,000 mL, [place] 1,000 mL 00 :00 IV Medical Piggyback, [place] ONCE, 1 dose, 04/02/20 at 1745, STAT pantoprazol 2019-2019- No 40mg 40 mg, IV Univers e 04-02 Piggyback, ity of (PROTONIX) 00:15: 10:49 Q24H, [place] 40 mg in 00 :10 First dose Medic al NaCl 0.9% on [place] Branch (NS) 100 mL 04/01/20 at MINI-BAG 1915, Until Discontinu ed, 100 mL D5W 0.45% 2019-2019- No IV Univers NaCl 04-0210 Infusion, ity of (1/2NS) 1 L 00:15: 23:16 at 150 [place] + KCL 20 00 :16 mL/hr, Medical mEq CONTINUOUS Branch , Starting [place] 04/01/20 at 1915, Until 04/02/20 at 1816, Routine acetaminoph 2019- No 650mg 650 mg, U nivers en 04-01 Oral, ity of (TYLENOL) 23:11: 21:31 Q6HPRN, [place] tablet 650 57 :27 Starting Medic al mg [place] 04/01/20 Branch at 1811, Until Tu04/03/20 at 1631, Routine, Pain (scale 1-3), Pain (scale 4-6) NaCl 0.9% 2019- No 1000mL at 999 Uni vers (NS) bolus 04-01 mL/hr, ity of infusion 23:10: 00:18 1,000 mL, [place] 1,000 mL 00 :00 IV Medical Piggyback, [place] ONCE, 1 dose, [place] 04/01/20 at 1815, STAT lactulose 2019- No 15mL 15 mL, Unive rs (CEPHULAC) 04-01 Oral, ity of solution 15 16:15: 16:01 ONCE, 1 [place] mL 00 :00 dose, [facility] 04/01/20 at Branch 1115, Routine Polyethylen 2019- No 17g 17 g, Univ ers e Glycol 03-31 Oral, BID ity o f 3350 15:45: 23:13 MEALS, [place] (MIRALAX) 00 :14 First dose Medi mariusz powder 17 g on [facility] 03/31/20 at 1045, Until Discontinu ed, Routine enoxaparin 2019- No 40mg 40 mg, Univ ers (LOVENOX) 03-31 Subcutaneo ity of injection 14:00: 10:50 us, DAILY, [place] 40 mg 00 :07 First dose Medical on [facility] [place] 03/31/20 at 0900, Until Discontinu ed, Routine D5W-LR IV 2020-0 2020- No 1000mL at 125 Uni vers infusion 03-31- mL/hr, IV ity o f 1,000 mL 03:00: 23:13 Infusion, [place] 00 :14 CONTINUOUS Medical , Starting Branch 03/30/20 at 2200, Until 04/01/20 at 1813, Routine ondansetron 2019-0 2020- No 4mg 4 mg, Slow Univers (ZOFRAN 03-31 IV Push, ity of (PF)) 01:51: 21:31 Q6HPRN, [place] injection 4 28 :27 Starting Medi mariusz mg 03/30/20 Branch at 2051, Until 04/03/20 at 1631, Routine, Nausea and Vomiting (N/V) iohexol 2019-0 2020- No 100mL 100 mL, Unive rs (OMNIPAQUE 03-31 Intravenou it y of 350 00:15: 21:08 s, ONCE, 1 [place] BULK-100 00 :00 dose, Fri Medica l mL) 03/30/20 at Branch injection 1915, 100 mL Routine ondansetron 2020- No 4mg 4 mg, Slow Univers (ZOFRAN 03-30 IV Push, ity of (PF)) 23:15: 22:07 ONCE, 1 [place] injection 4 00 :00 dose, Fri Med ical mg 03/30/20 at Branch 1815, JOÃO FENTanyl PF 2020- No 50ug 50 mcg, Un piyush (SUBLIMAZE 03-30 Slow IV ity o f (PF)) 23:15: 22:06 Push, [place] injection 00 :00 ONCE, 1 Medical 50 mcg dose, Fri Branch 03/30/20 at 1815, Routine NaCl 0.9% 2019- 2020- No 1000mL at 999 Uni vers (NS) bolus 03-30 mL/hr, ity of infusion 22:15: 23:43 1,000 mL, [place] 1,000 mL 00 :00 IV Medical Infusion, Branch ONCE, 1 dose, 03/30/20 at 1715, JOÃO metoclopram 2020- No 5mg 5 mg, Slow Univers tammi HCl 8-05 08-06 IV Push, ity of (REGLAN) 01:00: 00:59 Q12H, 2 [place] injection 5 00 :00 doses, Medica l mg First dose Branch on Thu03/27/20 at 2000, Last dose on Thu03/28/20 at 0800, Routine metoclopram 2020-0 Yes [id number] 5mg Take 1 Univers tammi HCl 8-05 tablet by ity of (REGLAN) 5 00:00: mouth [place] mg tablet 00 every 12 Medica l (twelve) Branch hours as needed for Nausea and Vomiting (N/V) (constipat ion). metoclopram 2020-0 Yes [id number] 5mg Take 1 Univers tammi HCl 8-05 tablet by ity of (REGLAN) 5 00:00: mouth [place] mg tablet 00 every 12 Medica l (twelve) Branch hours as needed for Nausea and Vomiting (N/V) (constipat ion). metoclopram 2020-0 Yes [id number] 5mg Take 1 Univers tammi HCl 8-05 tablet by ity of (REGLAN) 5 00:00: mouth [place] mg tablet 00 every 12 Medica l (twelve) Branch hours as needed for Nausea and Vomiting (N/V) (constipat ion). metoclopram 2020-0 Yes [id number] 5mg Take 1 Univers tammi HCl 8-05 tablet by ity of (REGLAN) 5 00:00: mouth [place] mg tablet 00 every 12 Medica l (twelve) Branch hours as needed for Nausea and Vomiting (N/V) (constipat ion). metoclopram 2020-0 2020- No [id number] 5mg Take 1 Univers tammi HCl 8-05 [...] s 00 CONTINUOUS Medical , Starting Branch Thu03/27/20 at 1345, Until Discontinu ed, Routine D5W-LR IV 2020-0 2020- No 1000mL at 100 Uni vers infusion 8-04 08-04 mL/hr, IV ity o f 1,000 mL 05:00: 18:41 Infusion, [place] 00 :45 CONTINUOUS Medical , Starting Branch Thu03/27/20 at 0000, Until Thu03/27/20 at 1341, Routine acetaminoph 2020-0 2020- No 1000mg 1,000 mg, Univers en ADULT 03-26 08-03 IV ity of (OFIRMEV) 05:15: 04:42 Infusion, [place] injection 00 :00 Administer Medi mariusz 1,000 mg over 15 Branch Minutes, ONCE, 1 dose, Thu03/26/20 at 0015, Routine
Indica tion: Perioperat ector Patient metoclopram 2019-0 2020- No 5mg 5 mg, Slow Univers tammi HCl 03-26 IV Push, ity of (REGLAN) 04:30: 22:24 Q8H ABX, 3 [place] injection 5 00 :00 doses, Medica l mg First dose Branch on Thu03/25/20 at 2330, Last dose on Thu03/26/20 at 1530, Routine heparin 2020-0 Yes 5000U 5,000 Univers (porcine) 03-26 Units, ity of injection 03:00: Subcutaneo [place] 5,000 Units 00 us, Q8H, Medi mariusz First dose Branch on Thu03/25/20 at 2200, Until Discontinu ed, Routine ondansetron 2020-0 Yes 4mg 4 mg, Slow Univers (ZOFRAN 03-26 IV Push, ity of (PF)) 02:46: Q6HPRN, [place] injection 4 11 Starting Medi mariusz mg [place] 03/25/20 Branch at 2146, Until Discontinu ed, Routine, Nausea and Vomiting (N/V) acetaminoph 2020-0 Yes 650mg 650 mg, Un piyush en 03 Oral, ity of (TYLENOL) 02:46: Q6HPRN, [place] tablet 650 05 Starting Medic al mg [place] 03/25/20 Branch at 2146, Until Discontinu ed, Routine, Pain (scale 1-3) iohexol 2020-0 2020- No 100mL 100 mL, Unive rs (OMNIPAQUE 03-26 Intravenou it y of 350 01:30: 01:30 s, ONCE, 1 [place] BULK-100 00 :00 dose, [place] Medica l mL) 03/25/20 at Branch injection 2030, 100 mL Routine NaCl 0.9% 2020-0 2020- No 1000mL at 999 Uni vers (NS) bolus 8 08-03 mL/hr, ity of infusion 00:45: 00:42 1,000 mL, [place] 1,000 mL 00 :00 IV Medical Infusion, [place] ONCE, 1 dose, [place] 03/25/20 at 1945, JOÃO enoxaparin 2020-0 Yes 40mg 40 mg, Unive rs (LOVENOX) 7-11 Subcutaneo ity of injection 14:00: us, DAILY, [place] 40 mg 00 First dose Medical on Sat [place] 03/03/20 at 0900, Until Discontinu ed, Routine lactated 2020-0 Yes 1000mL at 100 Unive rs ringers IV 7-11 mL/hr, ity of infusion 04:15: 1,000 mL, [place] 1,000 mL 00 IV Medical Infusion, Branch CONTINUOUS , Starting Thu03/02/20 at 2315, Until Discontinu ed, Routine ondansetron 2020-0 Yes 4mg 4 mg, Slow Univers (ZOFRAN 7-11 IV Push, ity of (PF)) 04:05: Q6HPRN, [place] injection 4 40 Starting Medi mariusz mg Fri [place] 03/02/20 at 2305, Until Discontinu ed, Routine, Nausea and Vomiting (N/V) acetaminoph 2020-0 Yes 650mg 650 mg, Un piyush en 7-11 Oral, ity of (TYLENOL) 04:05: Q6HPRN, [place] tablet 650 30 Starting Medic al mg Fri [place] 03/02/20 at 2305, Until Discontinu ed, Routine, Pain (scale 1-3) Polyethylen 2020-0 Yes [id number] 17g Take 1 Univers e Glycol 7-07 Packet by ity of 3350 17 00:00: mouth [place] gram powder 00 daily. Medica l Branch Polyethylen 2020-0 Yes [id number] 17g Take 1 Univers e Glycol 7-07 Packet by ity of 3350 17 00:00: mouth [place] gram powder 00 daily. Medica l Branch Polyethylen 2020-0 Yes [id number] 17g Take 1 Univers e Glycol 7-07 Packet by ity of 3350 17 00:00: mouth [place] gram powder 00 daily. Medica l Branch Polyethylen 2020-0 Yes [id number] 17g Take 1 Univers e Glycol 7-07 Packet by ity of 3350 17 00:00: mouth [place] gram powder 00 daily. Medica l Branch Polyethylen 2020-0 2020- No [id number] 17g Take 1 Univers e Glycol 7-07 08-05 Packet by ity o f 3350 17 00:00: 00:00 mouth [place] gram powder 00 :00 daily. Medica l Branch Polyethylen 2020-0 Yes 17g 17 g, Unive rs e Glycol 7-06 Oral, ity of 3350 18:15: DAILY, [place] (MIRALAX) 00 First dose Medi mariusz powder 17 g on Thu [place] 02/27/20 at 1315, Until Discontinu ed, Routine enoxaparin 2020-0 Yes 40mg 40 mg, Unive rs (LOVENOX) 7-06 Subcutaneo ity of injection 14:00: us, DAILY, [place] 40 mg 00 First dose Medical on [facility] 02/27/20 at 0900, Until Discontinu ed, Routine polyethylen 2020-0 Yes [id number] 17g Take 17 g Univers e glycol 17 7-06 by mouth ity of gram/dose 00:00: daily. [place] powder [facility] polyethylen 2020-0 Yes [id number] 17g Take 17 g Univers e glycol 17 7-06 by mouth ity of gram/dose 00:00: daily. [place] powder [facility] polyethylen 2020-0 Yes [id number] 17g Take 17 g Univers e glycol 17 7-06 by mouth ity of gram/dose 00:00: daily. [place] powder [facility] polyethylen 2020-0 Yes [id number] 17g Take 17 g Univers e glycol 17 7-06 by mouth ity of gram/dose 00:00: daily. [place] powder [facility] polyethylen 2020-0 Yes [id number] 17g Take 17 g Univers e glycol 17 7-06 by mouth ity of gram/dose 00:00: daily. [place] powder [facility] polyethylen 2020-0 Yes [id number] 17g Take 17 g Univers e glycol 17 7-06 by mouth ity of gram/dose 00:00: daily. [place] powder [facility] polyethylen 2020-0 Yes [id number] 17g Take 17 g Univers e glycol 17 7-06 by mouth ity of gram/dose 00:00: daily. [place] powder 00 Medical Branch polyethylen 2020-0 Yes [id number] 17g Take 17 g Univers e glycol 17 -06 by mouth ity of gram/dose 00:00: daily. [place] powder 00 Medical Branch polyethylen 2019-0 2020- No [id number] 17g Take 17 g Univers e glycol 17 - 09-08 by mouth ity of gram/dose 00:00: 00:00 daily. [place] powder 00 :00 Medical Branch iohexol 2019-0 2020- No 120mL 120 mL, Unive rs (OMNIPAQUE 02-25 Intravenou it y of 350 18:30: 18:30 s, ONCE, 1 [place] BULK-100 00 :00 dose, [place] Medica l mL) 02/26/20 at Branch injection 1330, 120 mL Routine lactated 2019-0 2020- No 1000mL at 125 Univ ers ringers IV 02-25-06 mL/hr, ity of infusion 16:00: 17:57 1,000 mL, [place] 1,000 mL 00 :14 IV Medical Infusion, Branch CONTINUOUS , Starting 02/26/20 at 1100, Until 02/27/20 at 1257, Routine acetaminoph Yes 650mg 650 mg, Un piyush en 02-25 Oral, ity of (TYLENOL) 15:01: Q6HPRN, [place] tablet 650 46 Starting Medic al mg 02/26/20 Branch at 1001, Until Discontinu ed, Routine, Pain (scale 1-3), Pain (scale 4-6) pantoprazol 2019-0 2020- No [id number] 40mg Take 1 Univers e 40 mg EC 614 tablet by ity of tablet 00:00: 04:59 mouth [place] 00 :00 daily for Medical 90 days. Branch pantoprazol 2020-0 2020- No [id number] 40mg Take 1 Univers e 40 mg EC 6-08 05-14 tablet by ity of tablet 00:00: 04:59 mouth [place] 00 :00 daily for Medical 90 days. Branch pantoprazol 2020-0 2020- No [id number] 40mg Take 1 Univers e 40 mg EC 6-08 05-14 tablet by ity of tablet 00:00: 04:59 mouth [place] 00 :00 daily for Medical 90 days. Branch pantoprazol 2019-0 2020- No [id number] 40mg Take 1 Univers e 40 mg EC 6-15 -14 tablet by ity of tablet 00:00: 04:59 mouth [place] 00 :00 daily for Medical 90 days. Branch pantoprazol 2019-0 2019- No [id number] 40mg Take 1 [facility] 40 mg EC 6-15 14 tablet by [facility] tablet 00:00: 04:59 mouth [place] 00 :00 daily for Medical 90 days. Branch pantoprazol 2020-0 2020- No [id number] 40mg Take 1 [facility] 40 mg EC 6-15 14 tablet by [facility] tablet 00:00: 04:59 mouth [place] 00 :00 daily for Medical 90 days. Branch pantoprazol 2019-0 2019- No [id number] 40mg Take 1 [facility] 40 mg EC 6-15 14 tablet by [facility] of tablet 00:00: 04:59 mouth [place] 00 :00 daily for Medical 90 days. Branch pantoprazol 2019-0 2019- No [id number] 40mg Take 1 [facility] 40 mg EC 6-15 14 tablet by [facility] of tablet 00:00: 04:59 mouth [place] 00 :00 daily for Medical 90 days. Branch pantoprazol 2019-0 2020- No [id number] 40mg Take 1 [facility] 40 mg EC 6-15 14 tablet by [facility] of tablet 00:00: 04:59 mouth [place] 00 :00 daily for Medical 90 days. Branch pantoprazol 2020-0 2020- No [id number] 40mg Take 1 Univers e 40 mg EC 6-15 14 tablet by ity of tablet 00:00: 04:59 mouth [place] 00 :00 daily for Medical 90 days. Branch pantoprazol 2020-0 2020- No [id number] 40mg Take 1 Univers e 40 mg EC 6-15 -14 tablet by ity of tablet 00:00: 04:59 mouth [place] 00 :00 daily for Medical 90 days. Branch pantoprazol 2020-0 2020- No [id number] 40mg Take 1 Univers e 40 mg EC 6-15 14 tablet by ity of tablet 00:00: 04:59 mouth [place] 00 :00 daily for Medical 90 days. Branch pantoprazol 2020-0 2020- No [id number] 40mg Take 1 Univers e 40 mg EC 6-15 08 tablet by ity of tablet 00:00: 00:00 mouth [place] 00 :00 daily for Medical 90 days. Branch docusate 2020-0 2020- No [id number] 100mg Take 1 Univers 100 mg 6-14 09-13 capsule by ity of capsule 00:00: 04:59 mouth 2 [place] 00 :00 (two) Medical times Branch daily for 90 days. docusate 2020-0 2020- No [id number] 100mg Take 1 Univers 100 mg 6-14 09-13 capsule by ity of capsule 00:00: 04:59 mouth 2 [place] 00 :00 (two) Medical times Branch daily for 90 days. docusate 2020-0 2020- No [id number] 100mg Take 1 Univers 100 mg 6-14 09-13 capsule by ity of capsule 00:00: 04:59 mouth 2 [place] 00 :00 (two) Medical times Branch daily for 90 days. docusate 2020-0 2020- No [id number] 100mg Take 1 Univers 100 mg 6-14 09-13 capsule by ity of capsule 00:00: 04:59 mouth 2 [place] 00 :00 (two) Medical times Branch daily for 90 days. docusate 2020-0 2020- No [id number] 100mg Take 1 Univers 100 mg 6-14 09-13 capsule by ity of capsule 00:00: 04:59 mouth 2 [place] 00 :00 (two) Medical times Branch daily for 90 days. docusate 2020-0 2020- No [id number] 100mg Take 1 Univers 100 mg 6-14 09-13 capsule by ity of capsule 00:00: 04:59 mouth 2 [place] 00 :00 (two) Medical times Branch daily for 90 days. docusate 2020-0 2020- No [id number] 100mg Take 1 Univers 100 mg 6-14 09-13 capsule by ity of capsule 00:00: 04:59 mouth 2 [place] 00 :00 (two) Medical times Branch daily for 90 days. docusate 2020-0 2020- No [id number] 100mg Take 1 Univers 100 mg 6-14 09-13 capsule by ity of capsule 00:00: 04:59 mouth 2 [place] 00 :00 (two) Medical times Branch daily for 90 days. docusate 2020-0 2020- No [id number] 100mg Take 1 Univers 100 mg 6-14 09-13 capsule by ity of capsule 00:00: 04:59 mouth 2 [place] 00 :00 (two) Medical times Branch daily for 90 days. docusate 2020-0 2020- No [id number] 100mg Take 1 [facility] 100 mg 02-04 capsule by ity of capsule 00:00: 04:59 mouth 2 [place] 00 :00 (two) Medical times Branch daily for 90 days. docusate 2020-0 2020- No [id number] 100mg Take 1 [facility] 100 mg 02-04 capsule by ity of capsule 00:00: 04:59 mouth 2 [place] 00 :00 (two) Medical times Branch daily for 90 days. docusate 2020-0 2020- No [id number] 100mg Take 1 [facility] 100 mg 02-04 capsule by ity of capsule 00:00: 04:59 mouth 2 [place] 00 :00 (two) Medical times Branch daily for 90 days. docusate 2020-0 2020- No [id number] 100mg Take 1 [facility] 100 mg 02-04 capsule by ity of capsule 00:00: 00:00 mouth 2 [place] 00 :00 (two) Medical times Branch daily for 90 days. pantoprazol 2019-0 Yes 40mg 40 mg, Univ ers e 01-28 Oral, ity of (PROTONIX) 14:00: DAILY, [place] EC tablet 00 First dose Medi mariusz 40 mg on Sun [place] 01/29/20 at 0900, Until Discontinu ed, Routine enoxaparin 2020-0 Yes 40mg 40 mg, Unive rs (LOVENOX) 01-28 Subcutaneo ity of injection 14:00: [place], [place]ILY, [place] 40 mg 00 First dose Medical on Sun [facility] 01/29/20 at 0900, Until Discontinu ed, Routine docusate 2020-0 Yes 100mg 100 mg, Unive rs (COLACE) 01-28 Oral, ity of capsule 100 14:00: DAILY, [place] mg 00 First dose Medical on Sun [facility] 01/29/20 at 0900, Until Discontinu ed, Routine levothyroxi 2020-0 Yes 50ug 50 mcg, Uni vers ne 01-28 Oral, ity of (SYNTHROID) 11:00: QAM-0600, [place] tablet 50 00 First dose Medi mariusz mcg on Sun Branch 01/29/20 at 0600, Until Discontinu ed, Routine simethicone 2020-0 Yes 80mg 80 mg, Univ ers (GAS RELIEF 01-28 Oral, ity of (SIMETHICON 04:45: PC+HS, [place] E)) 00 First dose Medical chewable on [facility] Branch tablet 80 01/28/20 at mg 2345, Until Discontinu ed, Routine D5W IV 2020-0 2020- No 1000mL at 50 Univers infusion 01-28 06-14 mL/hr, IV ity o f 1,000 mL 03:45: 18:41 Infusion, [place] 00 :31 CONTINUOUS Medical , Starting Branch 01/28/20 at 2245, Until 02/05/20 at 1341, Routine bisacodyL 2019-0 2020- No 10mg 10 mg, Unive rs (DULCOLAX) 01-28 Rectal, ity o f suppository 03:00: 02:52 ONCE, 1 [place] 10 mg 00 :00 dose, [facility] 01/28/20 at Branch 2200, Routine ondansetron 2019-0 Yes 4mg 4 mg, Slow Univers (ZOFRAN 01-28 IV Push, ity of (PF)) 01:32: Q6HPRN, [place] injection 4 44 Starting Medi mariusz mg [facility] 01/28/20 Branch at 2031, Until Discontinu ed, Routine, Nausea and Vomiting (N/V) traMADol 2019-0 2020- No 50mg 50 mg, Univer s (ULTRAM) 01-28 06-09 Oral, ity of tablet 50 01:32: 01:31 Q8HPRN, [place] mg 25 :25 Starting Medical [facility] 01/28/20 Branch at 2031, Until 01/30/20 at 2030, Routine, Pain (scale 4-6) acetaminoph 2019-0 Yes 650mg 650 mg, Un piyush en 07 Oral, ity of (TYLENOL) 01:32: Q6HPRN, [place] tablet 650 14 Starting Medic al mg [facility] 01/28/20 Branch at 2031, Until Discontinu ed, Routine, Pain (scale 1-3) morpHINE 2020-0 2020- No 4mg 4 mg, Slow Un piyush injection 4 01-28 06-06 IV Push, ity of mg 00:45: 23:55 ONCE, 1 [place] 00 :00 dose, [facility] 01/28/20 at Branch 1945, STAT iohexol 2020-0 2020- No 100mL 100 mL, Unive rs (OMNIPAQUE 01-28- Intravenou it y of 350 00:00: 00:00 s, ONCE, 1 [place] BULK-100 00 :00 dose, Sat Medica l mL) 01/28/20 at Branch injection 1900, 100 mL Routine ondansetron 2019-0 2020- No 4mg 4 mg, Slow Univers (ZOFRAN 01-27-06 IV Push, ity of (PF)) 23:15: 23:35 [...] 2 mg, Slow Uni vers injection 2 -03 IV Push, ity of mg 06:14: Q6HPRN, [place] 00 Starting Medical Thu01/25/20 Branch at 0114, Until Discontinu ed, Routine, Pain (scale 7-10) proCHLORper 2020-0 Yes 10mg 10 mg, Univ ers azine 6-03 Slow IV ity of (COMPAZINE) 06:12: Push, [place] injection 17 Q6HPRN, Medical 10 mg Starting Branch Thu01/25/20 at 0112, Until Discontinu ed, Routine, Nausea and Vomiting (N/V) iohexol 2020-0 2020- No 100mL 100 mL, Unive rs (OMNIPAQUE 01-24- Intravenou it y of 350 02:15: 02:11 s, ONCE, 1 [place] BULK-100 00 :00 dose, Tue Medica l mL) 01/24/20 at [place] injection 2114, 100 mL Routine morpHINE 2019- No 4mg 4 mg, Slow Un piyush injection 4 01-24 IV Push, ity of mg 01:45: 00:43 ONCE, 1 [place] 00 :00 dose, Tue Medical 01/24/20 at Branch 2044, Routine ondansetron 2019- No 4mg 4 mg, Slow Univers (ZOFRAN 01-24 IV Push, ity of (PF)) 00:45: 00:58 Administer [place] injection 4 00 :00 over 15 Medic al mg Minutes, Branch ONCE, 1 dose, [facility] 01/24/20 at 194, STAT NaCl 0.9% 2019- No 1000mL at 999 Uni vers (NS) bolus 01-24 mL/hr, ity of infusion 00:45: 01:15 1,000 mL, Javi as 1,000 mL 00 :00 IV Medical Infusion, [place] ONCE, 1 dose, [facility] 01/24/20 at 5, JOÃO mineral oil 2019- No [id number] 30mL Take 30 mL Univers oral liquid 12-11 05-05 by mouth ity of 00:00: 04:59 daily for [place] 00 :00 14 days. [facility] tamsulosin Yes .4mg QD Take 1 [facility] (FLOMAX[facility] 8-10 [facility] mg Cap 00:00: (0.4 mg Medi mariusz 24 hr 00 total) by Center capsule mouth daily. tamsulosin Yes .4mg QD Take 1 [facility] (FLOMAX[facility] 8[facility]10 [facility] 0.4 mg Cap 00:00: (0.4 mg Medi mariusz 24 hr 00 total) by Center capsule mouth daily. 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 multivitami 2021- No Alcohol 1{tbl} QD Take 1 [place] n (DAILY 04-14 abuse, in tablet by [employer]) 00:00: 00:00 remission mouth tablet 00 :00 daily. levothyroxi Yes 50ug Take 1 Univ [...] Immunizations Ordered Filled Immunization Date Status Comments [facility] e Immunization Name Name Influenza Virus 2021-06-04 Completed Universit y of Vaccine Quad IM, 00:00:00 [place] Me dical Preserv and ABX Branch Free 2-64 YRS Influenza Virus 2021-06-04 Completed Universit y of Vaccine Quad IM, 00:00:00 [place] Me dical Preserv and ABX Branch Free 6 MO-64 YRS Influenza Virus 2021-06-04 Completed Universit y of Vaccine Quad IM, 00:00:00 [place] Me dical Preserv and ABX Branch Free 6 MO-64 YRS Influenza Virus 2021-06-04 Completed Universit y of Vaccine Quad IM, 00:00:00 [place] Me dical Preserv and ABX Branch Free 6 MO-64 YRS Influenza Virus 2021-06-04 Completed Universit y of Vaccine Quad IM, 00:00:00 [place] Me dical Preserv and ABX Branch Free [...] Universit y of Vaccine Quad IM, 00:00:00 [place] Me dical Preserv and ABX Branch Free [...] y of Vaccine Quad .5 mL 00:00:00 [place] Medical IM 6+ MO Branch Influenza Virus 2020-08-24 Completed Universit y of Vaccine Quad .5 mL 00:00:00 [place] Medical IM 6+ MO Branch Influenza Virus 2020-08-24 Completed Universit y of Vaccine Quad .5 mL 00:00:00 [place] Medical IM 6+ MO Branch Influenza Virus 2020-08-24 Completed Universit y of Vaccine Quad .5 mL 00:00:00 [place] Medical IM 6+ MO Branch Influenza Virus 2020-08-24 Completed Universit y of Vaccine Quad .5 mL 00:00:00 [place] Medical IM 6+ MO Branch Influenza Virus 2020-08-24 Completed Universit y of Vaccine Quad .5 mL 00:00:00 [place] Medical IM 6+ MO Branch PPD 2017-04-14 Completed [facility] 00:00:00 Influenza Virus 2016-05-16 Completed Universit y of Vaccine Quad IM 3+ 00:00:00 [facility] Influenza Virus 2016-05-16 Completed Universit y of Vaccine Quad IM 3+ 00:00:00 [facility] Influenza Virus 2016-05-16 Completed Universit y of Vaccine Quad IM 3+ 00:00:00 [facility] Influenza Virus 2016-05-16 Completed Universit y of Vaccine Quad IM 3+ 00:00:00 [facility] Influenza Virus 2016-05-16 Completed Universit y of Vaccine Quad IM 3+ 00:00:00 [facility] Influenza Virus 2016-05-16 Completed Universit y of Vaccine Quad IM 3+ 00:00:00 [facility] Influenza Virus 2016-05-16 Completed Universit y of Vaccine Quad IM 3+ 00:00:00 [facility] Influenza Virus 2016-05-16 Completed Universit y of Vaccine Quad IM 3+ 00:00:00 [facility] Influenza Virus 2016-05-16 Completed Universit y of Vaccine Quad IM 3+ 00:00:00 [facility] Influenza Virus 2016-05-16 Completed Universit y of Vaccine Quad IM 3+ 00:00:00 [facility] Influenza Virus 2016-05-16 Completed Universit y of Vaccine Quad IM 3+ 00:00:00 [facility] Influenza Virus 2016-05-16 Completed Universit y of Vaccine Quad IM 3+ 00:00:00 [facility] Influenza Virus 2016-05-16 Completed Universit y of Vaccine Quad IM 3+ 00:00:00 [facility] Influenza Virus 2016-05-16 Completed Universit y of Vaccine Quad IM 3+ 00:00:00 [facility] Influenza Virus 2016-05-16 Completed Universit y of Vaccine Quad IM 3+ 00:00:00 [facility] Influenza Virus 2016-05-16 Completed Universit y of Vaccine Quad IM 3+ 00:00:00 [facility] Influenza Virus 2016-05-16 Completed Universit y of Vaccine Quad IM 3+ 00:00:00 [facility] Influenza Virus 2016-05-16 Completed Universit y of Vaccine Quad IM 3+ 00:00:00 [facility] Influenza Virus 2016-05-16 Completed Universit y of Vaccine Quad IM 3+ 00:00:00 [facility] Influenza Virus 2016-05-16 Completed Universit y of Vaccine Quad IM 3+ 00:00:00 [facility] Influenza Virus 2016-05-16 Completed Universit y of Vaccine Quad IM 3+ 00:00:00 [facility] Influenza Virus 2016-05-16 Completed Universit y of Vaccine Quad IM 3+ 00:00:00 [facility] Influenza Virus 2016-05-16 Completed Universit y of Vaccine Quad IM 3+ 00:00:00 [facility] Influenza Virus 2016-05-16 Completed Universit y of Vaccine Quad IM 3+ 00:00:00 [facility] Influenza Virus 2016-05-16 Completed Universit y of Vaccine Quad IM 3+ 00:00:00 [facility] Influenza Virus 2016-05-16 Completed Universit y of Vaccine Quad IM 3+ 00:00:00 [facility] Influenza Virus 2016-05-16 Completed Universit y of Vaccine Quad IM 3+ 00:00:00 [facility] Influenza Virus 2016-05-16 Completed Universit y of Vaccine Quad IM 3+ 00:00:00 [facility] Influenza Virus 2016-05-16 Completed Universit y of Vaccine Quad IM 3+ 00:00:00 [facility] Influenza Virus 2016-05-16 Completed Universit y of Vaccine Quad IM 3+ 00:00:00 [facility] Influenza Virus 2016-05-16 Completed Universit y of Vaccine Quad IM 3+ 00:00:00 [facility] Influenza Virus 2016-05-16 Completed Universit y of Vaccine Quad IM 3+ 00:00:00 [facility] Influenza Virus 2016-05-16 Completed Universit y of Vaccine Quad IM 3+ 00:00:00 [facility] Influenza Virus 2016-05-16 Completed Universit y of Vaccine Quad IM 3+ 00:00:00 [facility] Influenza Virus 2016-05-16 Completed Universit y of Vaccine Quad IM 3+ 00:00:00 [facility] Influenza Virus 2016-05-16 Completed Universit y of Vaccine Quad IM 3+ 00:00:00 [facility] Influenza Virus 2016-05-16 Completed Universit y of Vaccine Quad IM 3+ 00:00:00 [facility] Influenza Virus 2016-05-16 Completed Universit y of Vaccine Quad IM 3+ 00:00:00 [facility] Influenza Virus 2016-05-16 Completed Universit y of Vaccine Quad IM 3+ 00:00:00 [facility] Influenza Virus 2016-05-16 Completed Universit y of Vaccine Quad IM 3+ 00:00:00 [facility] Influenza Virus 2016-05-16 Completed Universit y of Vaccine Quad IM 3+ 00:00:00 [facility] Influenza Virus 2016-05-16 Completed Universit y of Vaccine Quad IM 3+ 00:00:00 [facility] Influenza Virus 2016-05-16 Completed Universit y of Vaccine Quad IM 3+ 00:00:00 [facility] Influenza Virus 2016-05-16 Completed Universit y of Vaccine Quad IM 3+ 00:00:00 [facility] Influenza Virus 2016-05-16 Completed Universit y of Vaccine Quad IM 3+ 00:00:00 [facility] Influenza Virus 2016-05-16 Completed Universit y of Vaccine Quad IM 3+ 00:00:00 [facility] Influenza Virus 2016-05-16 Completed Universit y of Vaccine Quad IM 3+ 00:00:00 [facility] Influenza Virus 2016-05-16 Completed Universit y of Vaccine Quad IM 3+ 00:00:00 [facility] Influenza Virus 2016-05-16 Completed Universit y of Vaccine Quad IM 3+ 00:00:00 [facility] Influenza Virus 2016-05-16 Completed Universit y of Vaccine Quad IM 3+ 00:00:00 [facility] Influenza Virus 2016-05-16 Completed Universit y of Vaccine Quad IM 3+ 00:00:00 [facility] Influenza Virus 2016-05-16 Completed Universit y of Vaccine Quad IM 3+ 00:00:00 [facility] Influenza Virus 2016-05-16 Completed Universit y of Vaccine Quad IM 3+ 00:00:00 [facility] Influenza Virus 2016-05-16 Completed Universit y of Vaccine Quad IM 3+ 00:00:00 [facility] Influenza Virus 2016-05-16 Completed Universit y of Vaccine Quad IM 3+ 00:00:00 [facility] Influenza Virus 2016-05-16 Completed Universit y of Vaccine Quad IM 3+ 00:00:00 [facility] Influenza Virus 2016-05-16 Completed Universit y of Vaccine Quad IM 3+ 00:00:00 [facility] Influenza Virus 2016-05-16 Completed Universit y of Vaccine Quad IM 3+ 00:00:00 [facility] Influenza Virus 2016-05-16 Completed Universit y of Vaccine Quad IM 3+ 00:00:00 [facility] Influenza Virus 2016-05-16 Completed Universit y of Vaccine Quad IM 3+ 00:00:00 [facility] Influenza Virus 2016-05-16 Completed Universit y of Vaccine Quad IM 3+ 00:00:00 [facility] Influenza Virus 2016-05-16 Completed Universit y of Vaccine Quad IM 3+ 00:00:00 [facility] Influenza Virus 2016-05-16 Completed Universit y of Vaccine Quad IM 3+ 00:00:00 [facility] Influenza Virus 2016-05-16 Completed Universit y of Vaccine Quad IM 3+ 00:00:00 [facility] Influenza Virus 2016-05-16 Completed Universit y of Vaccine Quad IM 3+ 00:00:00 [facility] Influenza Virus 2016-05-16 Completed Universit y of Vaccine Quad IM 3+ 00:00:00 [facility] Influenza Virus 2016-05-16 Completed Universit y of Vaccine Quad IM 3+ 00:00:00 [facility] Influenza Virus 2016-05-16 Completed Universit y of Vaccine Quad IM 3+ 00:00:00 [facility] Influenza Virus 2016-05-16 Completed Universit y of Vaccine Quad IM 3+ 00:00:00 [facility] Influenza Virus 2016-05-16 Completed Universit y of Vaccine Quad IM 3+ 00:00:00 [facility] Influenza Virus 2016-05-16 Completed Universit y of Vaccine Quad IM 3+ 00:00:00 [facility] Influenza Virus 2016-05-16 Completed Universit y of Vaccine Quad IM 3+ 00:00:00 [facility] Influenza Virus 2016-05-16 Completed Universit y of Vaccine Quad IM 3+ 00:00:00 [facility] Vital Signs Vital Name Observation Time Observation Value Comments Source Systolic blood 2022-04-10 115 mm[Hg] University of pressure 05:05:13 [facility] Diastolic blood 2022-04-10 93 mm[Hg] University o f pressure 05:05:13 [facility] Heart rate 2022-04-10 87 /min University 05:05:13 [facility] Respiratory rate 2022-04-10 15 /min University 05:05:13 [facility] Oxygen saturation 2022-04-10 100 /min Cow[facility] of in Arterial blood 05:05:13 [place] Medi mariusz by Pulse oximetry [place] Body temperature 2022-04-10 36.61 Tasia [facility] of 01:35:00 [facility] Body height 2022-04-10 185.4 cm University 01:35:00 [facility] Body weight 2022-04-10 68.04 kg [facility] of 01:35:00 [facility] BMI 2022-04-10 19.79 kg/m2 University of 01:35:00 [facility] Systolic blood 2022-04-08 86 mm[Hg] University of pressure 13:00:00 [facility] Diastolic blood 2022-04-08 75 mm[Hg] University o f pressure 13:00:00 [facility] Heart rate 2022-04-08 61 /min University of 13:00:00 [facility] Body temperature 2022-04-08 35.67 Tasia University of 13:00:00 [facility] Respiratory rate 2022-04-08 17 /min University of 13:00:00 [facility] Oxygen saturation 2022-04-08 95 /min University of in Arterial blood 13:00:00 [place] Medi mariusz by Pulse oximetry Branch Body weight 2022-04-06 72.984 kg [facility] of 08:20:00 [facility] BMI 2022-04-06 21.23 kg/m2 [facility] of 08:20:00 [facility] Body height 2022-04-02 185.4 cm University 16:37:00 [facility] HEIGHT 2022-03-06 185.4 cm 12:05:00 WEIGHT 2022-03-06 65.772 kg 12:05:00 HEIGHT 2022-03-06 185.4 cm 12:05:00 WEIGHT 2022-03-06 65.772 kg 12:05:00 HEIGHT 2022-03-06 185.4 cm 12:05:00 WEIGHT 2022-03-06 65.772 kg 12:05:00 Systolic blood 2021-09-14 106 mm[Hg] University of pressure 03:17:00 [facility] Diastolic blood 2021-09-14 55 mm[Hg] University o f pressure 03:17:00 [facility] Heart rate 2021-09-14 86 /min University 03:17:00 [facility] Body temperature 2021-09-14 36.89 Tasia University 03:17:00 [facility] Respiratory rate 2021-09-14 18 /min University of 03:17:00 [facility] Oxygen saturation 2021-09-14 98 /min University in Arterial blood 03:17:00 [facility] by Pulse oximetry Branch Systolic blood 2021-09-12 90 mm[Hg] University of pressure 22:20:00 [facility] Diastolic blood 2021-09-12 66 mm[Hg] University o f pressure 22:20:00 [facility] Heart rate 2021-09-12 97 /min University of 22:20:00 [facility] Body temperature 2021-09-12 36.61 Tasia University of 22:20:00 [facility] Respiratory rate 2021-09-12 16 /min University of 22:20:00 [facility] Oxygen saturation 2021-09-12 98 /min [facility] in Arterial blood 22:20:00 [facility] by Pulse oximetry Branch Body weight 2021-09-12 68.04 kg University of 20:25:00 [facility] BMI 2021-09-12 19.79 kg/m2 University of 20:25:00 [facility] Systolic blood 2021-09-12 103 mm[Hg] University of pressure 13:29:00 [facility] Diastolic blood 2021-09-12 67 mm[Hg] University o f pressure 13:29:00 [facility] Heart rate 2021-09-12 91 /min University of 13:29:00 [facility] Body temperature 2021-09-12 36.72 Tasia University of 13:29:00 [facility] Respiratory rate 2021-09-12 33 /min University of 13:29:00 [facility] Oxygen saturation 2021-09-12 98 /min University of in Arterial blood 13:29:00 [facility] mariusz by Pulse oximetry Branch Body weight 2021-09-12 68.04 kg University of 12:17:00 [facility] BMI 2021-09-12 19.79 kg/m2 University of 12:17:00 [facility] Systolic blood 2021-09-09 100 mm[Hg] University of pressure 04:59:00 [facility] Diastolic blood 2021-09-09 60 mm[Hg] University o f pressure 04:59:00 [facility] Heart rate 2021-09-09 85 /min University 04:59:00 [facility] Body temperature 2021-09-09 36.5 Tasia University of 04:59:00 [facility] Respiratory rate 2021-09-09 16 /min University of 04:59:00 [facility] Body height 2021-09-09 185.4 cm University of 04:59:00 [facility] Body weight 2021-09-09 68.04 kg University of 04:59:00 [facility] BMI 2021-09-09 19.79 kg/m2 University of 04:59:00 [facility] Oxygen saturation 2021-09-09 98 /min University of in Arterial blood 04:59:00 [facility] mariusz by Pulse oximetry Branch Systolic blood 2021-09-08 129 mm[Hg] University of pressure 05:42:00 [facility] Diastolic blood 2021-09-08 69 mm[Hg] University o f pressure 05:42:00 [facility] Heart rate 2021-09-08 85 /min University of 05:42:00 [facility] Branch Respiratory rate 2021-09-08 17 /min University of 05:42:00 [facility] Oxygen saturation 2021-09-08 98 /min University of in Arterial blood 05:42:00 [place] Medi mariusz by Pulse oximetry Branch Body temperature 2021-09-08 37.44 Tasia [facility] of 01:22:00 [facility] Body weight 2021-09-08 68 kg University of 01:22:00 [facility] BMI 2021-09-08 19.78 kg/m2 University of 01:22:00 [facility] Systolic blood 2021-09-06 123 mm[Hg] University of pressure 21:33:00 [facility] Diastolic blood 2021-09-06 65 mm[Hg] University o f pressure 21:33:00 [facility] Heart rate 2021-09-06 91 /min University of 21:33:00 [facility] Body temperature 2021-09-06 36.39 Tasia University of 21:33:00 [facility] Respiratory rate 2021-09-06 18 /min University of 21:33:00 [facility] Body weight 2021-09-06 68.04 kg University of 21:33:00 [facility] BMI 2021-09-06 19.79 kg/m2 University of 21:33:00 [facility] Oxygen saturation 2021-09-06 100 /min University of in Arterial blood 21:33:00 [facility] by Pulse oximetry [facility] Systolic blood 2021-09-05 99 mm[Hg] [facility] pressure 17:16:00 [facility] Diastolic blood 2021-09-05 62 mm[Hg] [facility] pressure 17:16:00 [facility] Heart rate 2021-09-05 78 /min [facility] of 17:16:00 [facility] Body temperature 2021-09-05 36.39 Tasia [facility] 17:16:00 [facility] Respiratory rate 2021-09-05 17 /min [facility] of 17:16:00 [facility] Oxygen saturation 2021-09-05 95 /min [facility] in Arterial blood 17:16:00 [facility] by Pulse oximetry [facility] Body height 2021-08-31 185.4 cm University of 07:29:00 [facility] Body weight 2021-08-31 68.04 kg University of 07:29:00 [facility] BMI 2021-08-31 19.79 kg/m2 University of 07:29:00 [facility] Systolic blood 2021-09-03 111 mm[Hg] [facility] pressure 15:59:00 [facility] Diastolic blood 2021-09-03 65 mm[Hg] [facility] pressure 15:59:00 [facility] Heart rate 2021-09-03 75 /min [facility] of 15:59:00 [facility] Body temperature 2021-09-03 35.72 Tasia [facility] 15:59:00 [facility] Respiratory rate 2021-09-03 18 /min [facility] of 15:59:00 [facility] Oxygen saturation 2021-09-03 100 /min [facility] in Arterial blood 15:59:00 [facility] by Pulse oximetry [facility] Body height 2021-08-31 185.4 cm University of 07:29:00 [facility] Body weight 2021-08-31 68.04 kg [facility] of 07:29:00 [facility] BMI 2021-08-31 19.79 kg/m2 University of 07:29:00 [facility] Systolic blood 2021-08-29 111 mm[Hg] [facility] pressure 23:12:00 [facility] Diastolic blood 2021-08-29 73 mm[Hg] [facility] pressure 23:12:00 [facility] Heart rate 2021-08-29 95 /min University 23:12:00 [facility] Body temperature 2021-08-29 37 Tasia [facility] 23:12:00 [facility] Respiratory rate 2021-08-29 18 /min [facility] of 23:12:00 [facility] Body weight 2021-08-29 68.04 kg University of 23:12:00 [facility] BMI 2021-08-29 19.79 kg/m2 University of 23:12:00 [facility] Oxygen saturation 2021-08-29 99 /min [facility] in Arterial blood 23:12:00 [facility] Pulse oximetry [facility] Systolic blood 2021-08-05 92 mm[Hg] [facility] pressure 10:56:00 [facility] Diastolic blood 2021-08-05 75 mm[Hg] [facility] pressure 10:56:00 [facility] Heart rate 2021-08-05 67 /min [facility] of 10:56:00 [facility] Body temperature 2021-08-05 36.22 Tasia [facility] 10:56:00 [facility] Oxygen saturation 2021-08-05 93 /min [facility] in Arterial blood 10:56:00 [facility] Pulse oximetry [facility] Respiratory rate 2021-08-05 16 /min University 06:24:00 [facility] Body height 2021-07-30 185.4 cm University 09:49:00 [facility] Body weight 2021-07-30 65.772 kg University of 09:49:00 [facility] BMI 2021-07-30 19.13 kg/m2 University of 09:49:00 [facility] Systolic blood 2021-07-26 107 mm[Hg] [facility] pressure 17:32:00 [facility] Diastolic blood 2021-07-26 69 mm[Hg] [facility] pressure 17:32:00 [facility] Heart rate 2021-07-26 70 /min [facility] of 17:32:00 [facility] Body temperature 2021-07-26 36.39 Tasia [facility] 17:32:00 [facility] Respiratory rate 2021-07-26 16 /min [facility] of 17:32:00 [facility] Oxygen saturation 2021-07-26 96 /min [facility] of in Arterial blood 17:32:00 [facility]z by Pulse oximetry Branch Body height 2021-07-23 185.4 cm University of 08:40:00 [facility] Body weight 2021-07-23 84.5 kg University of 08:40:00 [facility] BMI 2021-07-23 24.58 kg/m2 University of 08:40:00 [facility] Systolic blood 2021-06-04 95 mm[Hg] [facility] pressure 16:20:00 [facility] Diastolic blood 2021-06-04 60 mm[Hg] [facility] pressure 16:20:00 [facility] Heart rate 2021-06-04 61 /min [facility] of 16:20:00 [facility] Body temperature 2021-06-04 36.17 Tasia [facility] 16:20:00 [facility] Respiratory rate 2021-06-04 18 /min [facility] of 16:20:00 [facility] Oxygen saturation 2021-06-04 100 /min [facility] in Arterial blood 16:20:00 [facility] m[facility]z by Pulse oximetry Branch Body weight 2021-06-01 65.772 kg University of 19:00:00 [facility] BMI 2021-06-01 19.13 kg/m2 University of 19:00:00 [facility] Body height 2021-05-31 185.4 cm University of 22:12:00 [facility] Systolic blood 2021-05-21 101 mm[Hg] [facility] pressure 20:21:00 [facility] Diastolic blood 2021-05-21 68 mm[Hg] [facility] pressure 20:21:00 [facility] Heart rate 2021-05-21 74 /min [facility] of 20:21:00 [facility] Body temperature 2021-05-21 36.56 Tasia [facility] 20:21:00 [facility] Respiratory rate 2021-05-21 18 /min University of 20:21:00 [facility] Oxygen saturation 2021-05-21 99 /min [facility] in Arterial blood 20:21:00 [facility]z by Pulse oximetry Branch Body height 2021-05-21 185.4 cm University of 00:15:00 [facility] Body weight 2021-05-21 65.772 kg University of 00:15:00 [facility] BMI 2021-05-21 19.13 kg/m2 University of 00:15:00 [facility] Systolic blood 2021-05-09 101 mm[Hg] [facility] pressure 16:32:00 [facility] Diastolic blood 2021-05-09 70 mm[Hg] [facility] pressure 16:32:00 [facility] Heart rate 2021-05-09 69 /min [facility] of 16:32:00 [facility] Body temperature 2021-05-09 36.72 Tasia [facility] 16:32:00 [facility] Respiratory rate 2021-05-09 16 /min [facility] of 16:32:00 [facility] Oxygen saturation 2021-05-09 99 /min [facility] in Arterial blood 16:32:00 [facility] Pulse oximetry [facility] Body height 2021-05-08 185.4 cm University of 05:48:00 [facility] Body weight 2021-05-08 80.196 kg University of 05:48:00 [facility] BMI 2021-05-08 23.33 kg/m2 University of 05:48:00 [facility] Heart rate 2020-09-27 89 /min [facility] of 04:25:00 [facility] Respiratory rate 2020-09-27 20 /min [facility] of 04:25:00 [facility] Oxygen saturation 2020-09-27 99 /min [facility] in Arterial blood 04:25:00 [facility]z by Pulse oximetry Branch Systolic blood 2020-09-27 103 mm[Hg] [facility] pressure 04:02:00 [facility] Diastolic blood 2020-09-27 78 mm[Hg] [facility] pressure 04:02:00 [facility] Body temperature 2020-09-27 36.72 Tasia [facility] of 04:00:00 [facility] Body weight 2020-09-26 79.379 kg University of :35:00 [facility] BMI 2020-09-26 23.09 kg/m2 University of :35:00 [facility] Systolic blood 2020-08-24 105 mm[Hg] [facility] pressure 17:24:00 [facility] Diastolic blood 2020-08-24 64 mm[Hg] [facility] pressure 17:24:00 [facility] Heart rate 2020-08-24 83 /min [facility] of 17:24:00 [facility] Body temperature 2020-08-24 36.56 Tasia [facility] 17:24:00 [facility] Respiratory rate 2020-08-24 16 /min [facility] of 17:24:00 [facility] Oxygen saturation 2020-08-24 98 /min [facility] in Arterial blood 17:24:00 [facility] Pulse oximetry [facility] Body height 2020-08-23 185.4 cm University 03:19:00 [facility] Body weight 2020-08-23 79.379 kg University of 03:19:00 [facility] BMI 2020-08-23 23.09 kg/m2 University of 03:19:00 [facility] Systolic blood 2020-07-10 126 mm[Hg] [facility] pressure :32:00 [facility] Diastolic blood 2020-07-10 67 mm[Hg] [facility] pressure :32:00 [facility] Heart rate 2020-07-10 92 /min [facility] :32:00 [facility] Body temperature 2020-07-10 37.17 Tasia [facility] :32:00 [facility] Respiratory rate 2020-07-10 16 /min University of :32:00 [facility] Oxygen saturation 2020-07-10 100 /min [facility] in Arterial blood 01:32:00 [facility] Pulse oximetry [facility] Body height 2020-07-09 154.9 cm University of ::00 [facility] Body weight 2020-07-09 68.04 kg University of ::00 [facility] BMI 2020-07-09 28.34 kg/m2 University of :23:00 [facility] Systolic blood 2020-06-05 106 mm[Hg] [facility] pressure 15:00:00 [facility] Diastolic blood 2020-06-05 72 mm[Hg] [facility] f pressure 15:00:00 [facility] Heart rate 2020-06-05 84 /min [facility] of 15:00:00 [facility] Respiratory rate 2020-06-05 18 /min [facility] of 15:00:00 [facility] Oxygen saturation 2020-06-05 100 /min [facility] in Arterial blood 15:00:00 [facility] Pulse oximetry [facility] Body temperature 2020-06-05 36.61 Tasia [facility] of 14:54:52 [facility] Body weight 2020-06-05 65.772 kg University of 11:48:00 [facility] BMI 2020-06-05 19.13 kg/m2 University of 11:48:00 [facility] Systolic blood 2020-06-04 130 mm[Hg] [facility] pressure 18:30:00 [facility] Diastolic blood 2020-06-04 84 mm[Hg] [facility] pressure 18:30:00 [facility] Heart rate 2020-06-04 72 /min [facility] of 18:30:00 [facility] Body temperature 2020-06-04 36.72 Tasia [facility] 18:30:00 [facility] Respiratory rate 2020-06-04 16 /min [facility] of 18:30:00 [facility] Oxygen saturation 2020-06-04 98 /min [facility] in Arterial blood 18:30:00 [facility] Pulse oximetry [facility] Systolic blood 2020-05-31 90 mm[Hg] [facility] pressure 19:59:00 [facility] Diastolic blood 2020-05-31 59 mm[Hg] [facility] pressure 19:59:00 [facility] Heart rate 2020-05-31 88 /min [facility] of 19:59:00 [facility] Body temperature 2020-05-31 36.78 Tasia [facility] of 19:59:00 [facility] Respiratory rate 2020-05-31 16 /min [facility] of 19:59:00 [facility] Oxygen saturation 2020-05-31 98 /min [facility] in Arterial blood 19:59:00 [facility] by Pulse oximetry [facility] Body height 2020-05-30 185.4 cm University of 18:29:00 [facility] Body weight 2020-05-30 69.5 kg weighed in bed University of 18:29:00 [facility] BMI 2020-05-30 20.21 kg/m2 University of 18:29:00 [facility] Systolic blood 2020-05-22 100 mm[Hg] [facility] pressure 04:38:00 [facility] Diastolic blood 2020-05-22 71 mm[Hg] [facility] pressure 04:38:00 [facility] Heart rate 2020-05-22 90 /min University of 04:38:00 [facility] Respiratory rate 2020-05-22 18 /min [facility] of 04:38:00 [facility] Oxygen saturation 2020-05-22 97 /min [facility] in Arterial blood 04:38:00 [facility] Body temperature 2020-05-22 36.83 Tasia [facility] of 02:02:11 [facility] Body height 2020-05-22 185.4 cm University of 01:59:00 [facility] Body weight 2020-05-22 65.772 kg University of 01:59:00 [facility] BMI 2020-05-22 19.13 kg/m2 University of 01:59:00 [facility] Systolic blood 2020-05-20 95 mm[Hg] [facility] pressure 18:33:34 [facility] Diastolic blood 2020-05-20 62 mm[Hg] [facility] f pressure 18:33:34 [facility] Heart rate 2020-05-20 86 /min University of 18:33:34 [facility] Respiratory rate 2020-05-20 20 /min University of 18:33:34 [facility] Oxygen saturation 2020-05-20 98 /min [facility] in Arterial blood 18:33:34 [facility] Body temperature 2020-05-20 37 Tasia [facility] of 12:02:00 [facility] Body weight 2020-05-20 65.8 kg University of 12:02:00 [facility] BMI 2020-05-20 19.14 kg/m2 University of 12:02:00 [facility] Systolic blood 2020-05-20 101 mm[Hg] [facility] pressure 10:58:00 [facility] Diastolic blood 2020-05-20 56 mm[Hg] [facility] pressure 10:58:00 [facility] Heart rate 2020-05-20 79 /min [facility] of 10:58:00 [facility] Body temperature 2020-05-20 37 Tasia [facility] 10:58:00 [facility] Respiratory rate 2020-05-20 16 /min [facility] of 10:58:00 [facility] Oxygen saturation 2020-05-20 99 /min [facility] in Arterial blood 10:58:00 [facility] Body height 2020-05-20 185.4 cm University of 02:36:00 [facility] Body weight 2020-05-20 65.772 kg University of 02:36:00 [facility] BMI 2020-05-20 19.13 kg/m2 University of 02:36:00 [facility] Systolic blood 2020-05-12 93 mm[Hg] [facility] pressure 17:02:00 [facility] Diastolic blood 2020-05-12 61 mm[Hg] [facility] pressure 17:02:00 [facility] Body temperature 2020-05-12 37.06 Tasia [facility] 17:02:00 [facility] Heart rate 2020-05-12 74 /min [facility] of 09:00:00 [facility] Respiratory rate 2020-05-12 18 /min [facility] 09:00:00 [facility] Oxygen saturation 2020-05-12 95 /min [facility] Arterial blood 09:00:00 [facility] by Pulse oximetry [place] Body height 2020-05-05 185.4 cm [facility] 09:05:00 [facility] Body weight 2020-05-05 65.772 kg [facility] 09:05:00 [facility] BMI 2020-05-05 19.13 kg/m2 University of 09:05:00 [facility] Systolic blood 2020-05-03 107 mm[Hg] [facility] pressure 04:30:00 [facility] Diastolic blood 2020-05-03 62 mm[Hg] [facility] pressure 04:30:00 [facility] Heart rate 2020-05-03 105 /min [facility] 04:30:00 [facility] Body temperature 2020-05-03 37.22 Tasia [facility] 04:30:00 [facility] Respiratory rate 2020-05-03 14 /min [facility] of 04:30:00 [facility] Body height 2020-05-03 185.4 cm [facility] of 04:30:00 [facility] Body weight 2020-05-03 65.772 kg University of 04:30:00 [facility] BMI 2020-05-03 19.13 kg/m2 University of 04:30:00 [facility] Systolic blood 2020-05-02 105 mm[Hg] [facility] pressure 12:46:00 [facility] Diastolic blood 2020-05-02 57 mm[Hg] [facility] pressure 12:46:00 [facility] Heart rate 2020-05-02 79 /min [facility] of 12:46:00 [facility] Body temperature 2020-05-02 36.28 Tasia [facility] of 12:46:00 [facility] Respiratory rate 2020-05-02 16 /min [facility] of 12:46:00 [facility] Oxygen saturation 2020-05-02 98 /min [facility] in Arterial blood 12:46:00 [facility] by Pulse oximetry [facility] Body height 2020-04-16 185.4 cm University of 20:11:00 [facility] Body weight 2020-04-16 79.379 kg University of 20:11:00 [facility] BMI 2020-04-16 23.09 kg/m2 University of 20:11:00 [facility] Respiratory rate 2020-04-06 12 /min [facility] of 16:20:00 [facility] Systolic blood 2020-03-28 125 mm[Hg] [facility] pressure 16:00:00 [facility] Diastolic blood 2020-03-28 87 mm[Hg] [facility] pressure 16:00:00 [facility] Heart rate 2020-03-28 74 /min [facility] of 16:00:00 [facility] Body temperature 2020-03-28 36.44 Tasia [facility] of 16:00:00 [facility] Respiratory rate 2020-03-28 18 /min [facility] of 16:00:00 [facility] Oxygen saturation 2020-03-28 100 /min [facility] in Arterial blood 16:00:00 [facility] by Pulse oximetry [facility] Body height 2020-03-26 185.4 cm University of 03:49:00 [facility] Body weight 2020-03-26 74.844 kg University of 03:49:00 [facility] BMI 2020-03-26 21.77 kg/m2 University of 03:49:00 [facility] Systolic blood 2020-03-05 107 mm[Hg] [facility] pressure 16:00:00 [facility] Diastolic blood 2020-03-05 67 mm[Hg] [facility] o f pressure 16:00:00 [facility] Heart rate 2020-03-05 56 /min University of 16:00:00 [facility] Body temperature 2020-03-05 36.5 Tasia [facility] of 16:00:00 [facility] Respiratory rate 2020-03-05 18 /min [facility] of 16:00:00 [facility] Oxygen saturation 2020-03-05 100 /min [facility] in Arterial blood 16:00:00 [facility] by Pulse oximetry [facility] Body height 2020-03-03 185.4 cm University of 05:49:00 [facility] Body weight 2020-03-03 71.668 kg University of 05:49:00 [facility] BMI 2020-03-03 20.85 kg/m2 University of 05:49:00 [facility] Systolic blood 2020-02-27 100 mm[Hg] [facility] pressure 21:12:00 [facility] Diastolic blood 2020-02-27 74 mm[Hg] [facility] pressure 21:12:00 [facility] Heart rate 2020-02-27 90 /min [facility] of 21:12:00 [facility] Body temperature 2020-02-27 35.78 Tasia University of 21:12:00 [facility] Respiratory rate 2020-02-27 19 /min University of 21:12:00 [facility] Oxygen saturation 2020-02-27 99 /min [facility] in Arterial blood 21:12:00 [facility] by Pulse oximetry [place] Body weight 2020-02-26 71.215 kg University of 23:05:00 [facility] BMI 2020-02-26 20.71 kg/m2 University of 23:05:00 [facility] Systolic blood 2020-02-26 132 mm[Hg] [facility] pressure 07:43:00 [facility] Diastolic blood 2020-02-26 71 mm[Hg] [facility] f pressure 07:43:00 [facility] Heart rate 2020-02-26 82 /min [facility] of 07:43:00 [facility] Respiratory rate 2020-02-26 18 /min [facility] of 07:43:00 [facility] Oxygen saturation 2020-02-26 100 /min [facility] in Arterial blood 07:43:00 [facility] by Pulse oximetry [place] Body temperature 2020-02-26 36.94 Tasia [facility] of 04:57:00 [facility] Body height 2020-02-26 185.4 cm University of 02:30:00 [facility] Body weight 2020-02-26 68.04 kg University of 02:30:00 [facility] BMI 2020-02-26 19.79 kg/m2 University of 02:30:00 [facility] Systolic blood 2020-02-05 100 mm[Hg] [facility] pressure 16:00:00 [facility] Diastolic blood 2020-02-05 61 mm[Hg] [facility] pressure 16:00:00 [facility] Heart rate 2020-02-05 60 /min [facility] of 16:00:00 [facility] Body temperature 2020-02-05 36.67 Tasia [facility] of 16:00:00 [facility] Respiratory rate 2020-02-05 17 /min [facility] of 16:00:00 [facility] Oxygen saturation 2020-02-05 98 /min [facility] in Arterial blood 16:00:00 [place] [facility] Body height 2020-01-28 185.4 cm University of 23:13:00 [facility] Body weight 2020-01-28 68.04 kg University of 23:13:00 [facility] BMI 2020-01-28 19.79 kg/m2 University of 23:13:00 [facility] Systolic blood 2020-02-05 100 mm[Hg] [facility] of pressure 16:00:00 [facility] Diastolic blood 2020-02-05 61 mm[Hg] [facility] o f pressure 16:00:00 [facility] Heart rate 2020-02-05 60 /min [facility] of 16:00:00 [facility] Body temperature 2020-02-05 36.67 Tasia [facility] of 16:00:00 [facility] Respiratory rate 2020-02-05 17 /min [facility] of 16:00:00 [facility] Oxygen saturation 2020-02-05 98 /min [facility] in Arterial blood 16:00:00 [place] [facility] Body height 2020-01-28 185.4 cm University of 23:13:00 [facility] Body weight 2020-01-28 68.04 kg University of 23:13:00 [facility] BMI 2020-01-28 19.79 kg/m2 University of 23:13:00 [facility] Systolic blood 2020-01-27 114 mm[Hg] [facility] pressure 00:32:00 [facility] Diastolic blood 2020-01-27 66 mm[Hg] [facility] pressure 00:32:00 [facility] Heart rate 2020-01-27 73 /min [facility] of 00:32:00 [facility] Body temperature 2020-01-27 36.67 Tasia [facility] 00:32:00 [facility] Respiratory rate 2020-01-27 18 /min [facility] of 00:32:00 [facility] Oxygen saturation 2020-01-27 97 /min [facility] in Arterial blood 00:32:00 [facility] Body height 2020-01-24 185.4 cm University of 23:55:00 [facility] Body weight 2020-01-24 68.04 kg University of 23:55:00 [facility] BMI 2020-01-24 19.79 kg/m2 University of :55:00 [facility] Systolic blood 2020-01-27 114 mm[Hg] [facility] pressure 00:32:00 [facility] Diastolic blood 2020-01-27 66 mm[Hg] [facility] pressure 00:32:00 [facility] Heart rate 2020-01-27 73 /min [facility] of 00:32:00 [facility] Body temperature 2020-01-27 36.67 Tasia [facility] of 00:32:00 [facility] Respiratory rate 2020-01-27 18 /min [facility] of 00:32:00 [facility] Oxygen saturation 2020-01-27 97 /min [facility] in Arterial blood 00:32:00 [facility] by Pulse oximetry [facility] Body height 2020-01-24 185.4 cm University of :55:00 [facility] Body weight 2020-01-24 68.04 kg University of :55:00 [facility] BMI 2020-01-24 19.79 kg/m2 University of :55:00 [facility] Body temperature 2019-12-13 36.72 Tasia University of 02:56:16 [facility] Systolic blood 2019-12-13 114 mm[Hg] University of pressure 01:57:00 [facility] Diastolic blood 2019-12-13 77 mm[Hg] University o f pressure 01:57:00 [facility] Heart rate 2019-12-13 75 /min University of 01:57:00 [facility] Respiratory rate 2019-12-13 20 /min University of :57:00 [facility] Body height 2019-12-13 185.4 cm University of :57:00 [facility] Body weight 2019-12-13 68.04 kg University of :57:00 [facility] BMI 2019-12-13 19.79 kg/m2 University of :57:00 [facility] Oxygen saturation 2019-12-13 97 /min University of in Arterial blood 01:57:00 [facility] mariusz by Pulse oximetry Branch Body temperature 2019-12-13 36.72 Tasia University of 02:56:16 [facility] Systolic blood 2019-12-13 114 mm[Hg] University of pressure 01:57:00 [facility] Diastolic blood 2019-12-13 77 mm[Hg] University o f pressure 01:57:00 [facility] Heart rate 2019-12-13 75 /min [facility] :57:00 [facility] Respiratory rate 2019-12-13 20 /min [facility] :57:00 [facility] Body height 2019-12-13 185.4 cm [facility] :57:00 [facility] Body weight 2019-12-13 68.04 kg [facility] :57:00 [facility] BMI 2019-12-13 19.79 kg/m2 [facility] :57:00 [facility] Oxygen saturation 2019-12-13 97 /min [facility] in Arterial blood 01:57:00 [facility] by Pulse oximetry [place] Systolic blood 2022-03-13 94 mm[Hg] [facility] pressure 15:33:00 Diastolic blood 2022-03-13 62 mm[Hg] [facility] h pressure 15:33:00 Heart rate 2022-03-13 109 /min [facility] 15:33:00 Body temperature 2022-03-13 36.67 Tasia [facility] 15:33:00 Respiratory rate 2022-03-13 20 /min [facility] 15:33:00 Body height 2022-03-13 185.4 cm [facility] 15:33:00 Body weight 2022-03-13 66.679 kg [facility] 15:33:00 BMI 2022-03-13 19.39 kg/m2 [facility] 15:33:00 Oxygen saturation 2022-03-13 100 /min [facility] Arterial blood 15:33:00 by Pulse oximetry Systolic blood 2022-03-09 107 mm[Hg] [facility] pressure 11:00:00 [facility] Diastolic blood 2022-03-09 66 mm[Hg] [facility] pressure 11:00:00 [facility] Heart rate 2022-03-09 58 /min [facility] 11:00:00 [facility] Body temperature 2022-03-[address] [facility] 11:[facility]:00 [facility] Respiratory rate 2022-03-09 16 /min [facility] 11:00:00 [facility] Oxygen saturation 2022-03-09 100 /min [facility] in Arterial blood 11:00:00 [facility] nter by Pulse oximetry Body height 2022-03-[address] [facility] 12:05:00 [facility] Body weight 2022-03-[address] [facility] 12:05:00 [facility] BMI 2022-03-06 19.13 kg/m2 [facility] 12:05:00 [facility] Procedures Procedure Date / Time Performing Clinician Source Performed COMP. METABOLIC PANEL 2022-04-10 03:54:00 Alvarez Austin [facility] ([id number]) [facility] CBC WITH DIFF 2022-04-10 03:49:00 Alvarez Austin [facility] LIPASE 2022-04-10 03:07:00 Alvarez Austin [facility] XR CHEST 2 VW 2022-04-10 02:59:18 Alvarez Austin [facility] COVID-19 (ID NOW RAPID 2022-04-10 02:43:00 Alvarez Austin [facility] TESTING) Medical Branch PHOSPHORUS 2022-04-08 10:26:00 [facility] 2022-04-08 10:26:00 Kurt [facility] BASIC METABOLIC PANEL (NA, 2022-04-08 10:26:00 Shelia Lemus [facility] K, CL, CO2, GLUCOSE, BUN, Medica l Branch CREATININE, CA) CBC WITH DIFF 2022-04-08 10:26:00 Kurt [facility] PHOSPHORUS 2022-04-07 09:45:00 Marcela [facility] MAGNESIUM 2022-04-07 09:45:00 Marcela [facility] BASIC METABOLIC PANEL (NA, 2022-04-07 09:45:00 AlbDon jones [facility] K, CL, CO2, GLUCOSE, BUN, Medica l Branch CREATININE, CA) LACTIC ACID WHOLE BLOOD 2022-04-06 09:05:00 Rolf Lemus [facility] MAGNESIUM 2022-04-06 09:04:00 Rolf Lemus [facility] BASIC METABOLIC PANEL (NA, 2022-04-06 09:04:00 Rolf Lemus [facility] K, CL, CO2, GLUCOSE, BUN, Medica l Branch CREATININE, CA) CBC WITH DIFF 2022-04-06 09:04:00 Rolf Lemus [facility] BASIC METABOLIC PANEL (NA, 2022-04-05 08:12:00 Agatha Noonan [facility] K, CL, CO2, GLUCOSE, BUN, Medica l Branch CREATININE, CA) ACUTE CARE VENOUS BLOOD 2022-04-05 08:12:00 Amirah [facility] CBC WITH DIFF 2022-04-05 08:12[facility]00 [facility]OLIC PANEL (NA, 2022-04-04 09:03:00 Rolf Lemus [facility] K, CL, CO2, GLUCOSE, BUN, Medica l Branch CREATININE, CA) RETROPERITONEAL LIMITED 2022-04-03 23:10:49 Octavio Macario [facility] ACUTE CARE VENOUS BLOOD 2022-04-03 18:33:00 Octavio Macario [facility] OSMOLALITY URINE 2022-04-03 17:59:00 Amirah [facility] BASIC METABOLIC PANEL (NA, 2022-04-03 17:59:00 Octavio Macario [facility] K, CL, CO2, GLUCOSE, BUN, Medica l Branch CREATININE, CA) CREATININE, URINE RANDOM 2022-04-03 17:59:00 Octavio Macario [facility] POTASSIUM, URINE RANDOM 2022-04-03 17:59:00 Octavio Macario [facility] SODIUM, URINE RANDOM 2022-04-03 17:59:00 Octavio Macario [facility] MAGNESIUM 2022-04-03 09:29:00 Amirah Octavio [facility] OSMOLALITY, SERUM OR 2022-04-03 09:29:00 Octavio Macario [facility] BASIC METABOLIC PANEL (NA, 2022-04-03 09:29:00 Juventino Thomas [facility] K, CL, CO2, GLUCOSE, BUN, Medica l Branch CREATININE, CA) CBC WITH DIFF 2022-04-03 09:29:00 Zahraa Thomasshua [facility] CLOSTRIDIUM DIFFICILE 2022-04-03 03:44:00 Zahraa Thomasshua [facility] TOXIN [facility] LACTIC ACID WHOLE BLOOD 2022-04-03 03:38:00 William [facility] LACTIC ACID WHOLE BLOOD 2022-04-03 00:07:00 William [facility] URINE CULTURE 2022-04-02 22:39:00 Aguila [facility] CT ABDOMEN PELVIS WO 2022-04-02 21:07:00 Rekha Sheehan [facility] CONTRAST [facility] Branch LIPASE 2022-04-02 20:00:00 Aguila [facility] TROPONIN I 2022-04-02 20:00:00 Aguila [facility] HEPATIC FUNCTION PANEL 2022-04-02 20:00:00 Rekha Sheehan [facility] ([id number]) (ALB,T.PRO,BILI Medical Branch T,BU/BC,ALT,AST,ALK PHOS) BASIC METABOLIC PANEL (NA, 2022-04-02 20:00:00 Rekha Sheehan [facility] K, CL, CO2, GLUCOSE, BUN, Medica l Branch CREATININE, CA) URINALYSIS 2022-04-02 20:00:00 Aguila [facility] CBC WITH DIFF 2022-04-02 18:20:00 Aguila [facility] COVID-19 (ID NOW RAPID 2022-04-02 18:20:00 Rekha Sheehan [facility] TESTING) Medical Branch LAB ONLY COVID 2022-04-02 18:20:00 Aguila [facility] INTERPRETATION [facility] XR CHEST 2 VW 2022-04-02 17:29:13 Aguila [facility] HB ECG ROUTINE & RHYTHM 2022-04-02 16:32:43 Rekha Sheehan [facility] STRIP [facility] CONSENT/REFUSAL FOR 2022-04-02 16:29:46 Doctor Unassigned, [facility] DIAGNOSIS AND TREATMENT [place] Medical [facility] BASIC METABOLIC PANEL (7) 2022-03-07 05:51:00 Eduar KuoZander [facility] HEPATIC FUNCTION PANEL 2022-03-07 05:51:00 [facility]a [facility] W/PLT COUNT & AUTO 2022-03-07 05:51:00 Eduar [facility]Acacia [facility] DIFFERENTIAL Center CBC W/PLT COUNT & AUTO 2022-03-07 05:51:00 Shiela [facility] DIFFERENTIAL [place] RENAL COMPLETE 2022-03-06 18:23:00 Shiela[facility]acia[facility]old [facility] SARS-COV2/RT-PCR ([facility] & 2022-03-06 17:36:00 [facility] REF LABS) Center TSH/FREE T4 IF INDICATED 2022-03-06 14:18:00 [facility], FREE 2022-03-06 14:18:00 Aryan Tello [facility] ED ECG INTERPRETATION 2022-03-06 13:48:12 Aryan Tello [facility] XR CHEST 1 VIEW PORTABLE / 2022-03-06 13:42:[address] [facility] BEDSIDE [facility] B-TYPE NATRIURETIC FACTOR 2022-03-06 13:23:00 Aryan Tello [facility] (BNP) [facility] CBC W/PLT COUNT & AUTO 2022-03-06 13:23:00 Aryan Tello [facility] DIFFERENTIAL [facility] COMPREHENSIVE METABOLIC 2022-03-06 13:23:00 Aryan Tello [facility] PANEL [facility] HIGH SENSITIVITY TROPONIN 2022-03-06 13:23:00 Aryan Tello [facility] MAGNESIUM 2022-03-06 13:23:00 Aryan Tello [facility] PHOSPHORUS 2022-03-06 13:23:00 Aryan Tello [facility] LACTIC ACID, VENOUS 2022-03-06 13:23:00 Aryan Tello [facility] CREATINE KINASE (CK) 2022-03-06 13:23:00 Rasheeda Tellomerrick [facility] CBC W/PLT COUNT & AUTO 2022-03-06 13:23:00 Aryan Tello [facility] S [facility] DIFFERENTIAL [facility] ECG 12-LEAD 2022-03-06 12:12:56 Unknown, Hl7 Doctor [facility] ECG 12-LEAD 2022-03-06 12:12:56 Unknown, Hl7 Doctor [facility] EKG-SCANNED 2022-03-06 00:00:00 Provider, [facility] CBC (WITHOUT DIFFERENTIAL) 2022-02-20 05:10:[address] [facility] BASIC METABOLIC PANEL 2022-02-20 05:10:00 Rufino Lazaro Health MAGNESIUM 2022-02-20 05:10:00 Rufino Lazaro PHOSPHORUS 2022-02-20 05:10:00 Rufino Lazaro INFUSION PUMP 2022-02-19 19:03:50 Rufino Lazaro h COMPREHENSIVE METABOLIC 2022-02-19 06:35:00 Fannie Blake arr Health PANEL CBC/DIFF 2022-02-19 06:35:00 Fannie Blake alth PHOSPHORUS 2022-02-19 06:35:00 Fannie Blake alth CBC 2022-02-19 06:35:00 Fannie Blake alth URINALYSIS W/REFLEX TO 2022-02-19 00:34:00 Fannie Blake [facility] URINE CULTURE URINALYSIS 2022-02-19 00:34:00 Chadd Palacios URINE CULTURE COLLECTION 2022-02-19 00:34:00 Chadd Palacios [facility] KIT SARS-COV-2, FLU A/B, RSV 2022-02-18 19:00:00 Chadd Palacios [facility] CORONAVIRUS, COVID-19, OLENA 2022-02-18 19:00:00 Chadd Palacios [facility] XRAY CHEST 1 VIEW 2022-02-18 15:23:00 Roz Scales [facility] CONSULT CLINICAL CASE 2022-02-18 14:50:50 Yordy Roz Ashia Lynne [facility] MANAGEMENT (RN/SW) CBC/DIFF 2022-02-18 14:16:00 Albab, Susana Lynne [facility] BASIC METABOLIC PANEL 2022-02-18 14:16:00 Albab, [facility] MAGNESIUM 2022-02-18 14:16:00 Albab, [facility] PHOSPHORUS 2022-02-18 14:16:00 [facility] CREATINE KINASE (CK) 2022-02-18 14:16:00 Albab, [facility] CBC 2022-02-18 14:16:00 Albab, [facility] BASIC METABOLIC PANEL 2022-02-11 03:34:00 [facility] 2022-02-11 03:34:00 Cucbeth [facility] th PHOSPHORUS 2022-02-11 03:34:00 [facility] CBC (WITHOUT DIFFERENTIAL) 2022-02-11 03:34:00 [facility] CBC/DIFF 2022-02-10 03:39:00 Antonieta Annaashia Lyn[facility] BASIC METABOLIC PANEL 2022-02-10 03:39:00 [facility] CBC 2022-02-10 03:39:00 [facility]RO[facility] STIMULATING 2022-02-10 03:39:00 [facility] HORMONE (TSH) FREE T4 2022-02-10 03:39:[address] [facility] th CBC/DIFF 2022-02-09 04:38:00 Rosas Islaswillyashia Lynne [facility] BASIC METABOLIC PANEL 2022-02-09 04:38:00 [facility] CBC 2022-02-09 04:38:00 Daily [facility] CORTISOL, TOTAL 2022-02-08 11:37:00 Jian Schmitt ealt GLUCOSE POC 2022-02-08 08:07:00 [facility] (WITHOUT DIFFERENTIAL) 2022-02-08 04:00:00 Jian Schmitt [facility] COMPREHENSIVE METABOLIC 2022-02-08 04:00:00 Jian Schmitt [facility] PANEL PHOSPHORUS 2022-02-08 04:00:00 [facility] MAGNESIUM 2022-02-08 04:00:00 HardeepJian [facility] PT/INR 2022-02-08 04:00:00 HardeepJian [facility] URINALYSIS W/REFLEX TO 2022-02-07 18:06:00 Areli Arciniega [facility] URINE CULTURE URINALYSIS 2022-02-07 18:06:00 Areli Arciniega alth URINE CULTURE COLLECTION 2022-02-07 18:06:00 Areli Arciniega [facility] KIT ELECTROLYTES, URINE 2022-02-07 18:06:00 Jyoti Carrillo [facility] OSMOLALITY, URINE 2022-02-07 18:06:00 Jyoti Carrillo [facility] SARS-COV-2, FLU A/B, RSV 2022-02-07 18:05:00 Jyoti Carrillo [facility] CORONAVIRUS, COVID-19, OLENA 2022-02-07 18:05:00 Jyoti Carrillo [facility] NUTRITION CONSULT 2022-02-07 17:43:36 Jian Schmitt [facility] BASIC METABOLIC PANEL 2022-02-07 17:18:00 Jyoti Carrillo [facility] LACTIC ACID 2022-02-07 14:04:00 Areli rAciniega alth CBC/DIFF 2022-02-07 14:03:00 Areli Arciniega alth BASIC METABOLIC PANEL 2022-02-07 14:03:00 Areli Arciniega [facility] LIVER PROFILE 2022-02-07 14:03:00 Areli Arciniega alth LIPASE 2022-02-07 14:03:00 Areli Arciniega alth MAGNESIUM 2022-02-07 14:03:00 Areli Arciniega Lynne Misael alth PHOSPHORUS 2022-02-07 14:03:00 Areli Arciniega Lynne Misael alth TROPONIN I 2022-02-07 14:03:00 Areli Arciniega Lynne Misael alth CBC 2022-02-07 14:03:00 Areli Arciniega alth 12 LEAD EKG 2022-01-21 15:46:10 Ori Goldberg [facility] h CBC/DIFF 2022-01-21 04:11:00 LindseyTien Heal MAGNESIUM 2022-01-21 04:11:00 Lindsey Tien P [facility] PHOSPHORUS 2022-01-21 04:11:00 LindseyTien P [facility] BASIC METABOLIC PANEL 2022-01-21 04:11:00 Ori Goldberg [facility] CBC 2022-01-21 04:11:00 LindseyTien [facility] CBC/DIFF 2022-01-20 04:37:00 LindseyTien P [facility] MAGNESIUM 2022-01-20 04:37:00 LindseyTien [facility] PHOSPHORUS 2022-01-20 04:37:00 LindseyTien P [facility] BASIC METABOLIC PANEL 2022-01-20 04:37:00 [facility] CBC 2022-01-20 04:37:00 LindseyTien Heal MAGNESIUM 2022-01-19 18:09:00 LindseyTien P [facility] PHOSPHORUS 2022-01-19 18:09:00 Lindsey Tien P [facility] BASIC METABOLIC PANEL 2022-01-19 18:09:00 Lindsey, [facility] CORTISOL, TOTAL 2022-01-19 18:09:00 Karin Bassett [facility] URINALYSIS W/REFLEX TO 2022-01-19 17:22:00 Tien Lucas [facility] URINE CULTURE URINALYSIS 2022-01-19 17:22:00 Tien Lucas [facility] URINE CULTURE COLLECTION 2022-01-19 17:22:00 Tien Lucas Momin [facility] Health KIT COMPUTED TOMOGRAPHY 2022-01-19 13:29:00 Tien Lucas [facility] ABDOMEN AND PELVIS WITHOUT CONTRAST CBC/DIFF 2022-01-19 04:44:00 Tien Lucas [facility] CBC 2022-01-19 04:44:00 LinsdeyNoe herreragera Santana [facility] DIFFERENTIAL, MANUAL (NO 2022-01-19 04:44:00 Lindsey Tien Esther Momin [facility] Health MORPHOLOGY)-WA BASIC METABOLIC PANEL 2022-01-18 17:15:00 Tien [facility] CBC/DIFF 2022-01-18 04:46:00 Tien Lucas [facility] MAGNESIUM 2022-01-18 04:46:00 Tien Lucas [facility] PHOSPHORUS 2022-01-18 04:46:00 Noe Lucash Esther [facility] BASIC METABOLIC PANEL 2022-01-18 04:46:00 Ori Goldberg [facility] CBC 2022-01-18 04:46:00 Noe Lucash Esther [facility] HIV AG/AB COMBO ROUTINE 2022-01-18 04:46:00 Karin Bassett [facility] SCREENING ENTERIC PATHOGENS NUCLEIC 2022-01-18 03:25:[address] [facility] ACID TEST BASIC METABOLIC PANEL 2022-01-18 00:29:00 Ori Goldberg [facility] BASIC METABOLIC PANEL 2022-01-17 17:07:00 Tien [facility] BASIC METABOLIC PANEL 2022-01-17 13:15:00 Tien [facility] CALPROTECTIN FECAL 2022-01-17 12:38:00 Tien Lucas [facility] ealth FECAL LEUKOCYTES 2022-01-17 12:38:00 Tien Lucas [facility] T-TRANSGLUTAMINASE IGA 2022-01-17 12:22:00 Tien [facility] BASIC METABOLIC PANEL 2022-01-17 08:51:00 LindseyNoeh P [facility] BASIC METABOLIC PANEL 2022-01-17 04:47:00 Tien [facility] CBC/DIFF 2022-01-17 04:47:00 Tien Lucas [facility] th MAGNESIUM 2022-01-17 04:47:00 Lindsey Tien P Lynne [facility] th PHOSPHORUS 2022-01-17 04:47:00 Tien Lucas Lyn[facility] CBC 2022-01-17 04:47:00 Lindsey Tien P [facility] BASIC METABOLIC PANEL 2022-01-17 00:08:00 Tien Lucas [facility] 12 LEAD EKG 2022-01-16 21:23:25 Tien Lucas [facility] BASIC METABOLIC PANEL 2022-01-16 21:08:00 Tien Lucas P [facility] XRAY CHEST 2 VIEWS 2022-01-16 19:56:00 LindseyTien [facility] ealth IP CONSULT TO PHYSICAL 2022-01-16 19:17:17 LindseyTien is Health THERAPY CONSULT CLINICAL CASE 2022-01-16 19:17:17 Tien Lucas [facility] MANAGEMENT (RN/SW) SEQUENTIAL COMPRESSION 2022-01-16 19:17:17 LindseyTien is Health PUMP SODIUM, URINE, RANDOM 2022-01-16 16:00:00 Kevin Nieves [facility] CREATININE, URINE, RANDOM 2022-01-16 16:00:00 Kevin Nieves [facility] OSMOLALITY, URINE 2022-01-16 16:00:00 Kevin Nieves [facility] SARS-COV-2, FLU A/B, RSV 2022-01-16 15:20:00 NievesKevin barreto [facility] CORONAVIRUS, COVID-19, OLENA 2022-01-16 15:20:00 Kevin Nieves [facility] FOLIC ACID 2022-01-16 14:13:00 Kevin Nieves [facility] ealt CREATININE POC 2022-01-16 13:55:00 Raymon Martint h BMP POC 2022-01-16 13:46:00 Raymon Martin Healt h CBC/DIFF 2022-01-16 12:12:00 Raymon [facility] CBC 2022-01-16 12:12:00 Raymon [facility] VITAMIN B12 2022-01-16 12:11:00 Kevin Nieves ealth OSMOLALITY,SERUM 2022-01-16 12:11:00 Kevin Nieves [facility] BASIC METABOLIC PANEL 2022-01-16 12:11:00 Sadiq Vargas [facility] MAGNESIUM 2022-01-16 12:11:00 Sadiq Vargas [facility] lt INFUSION PUMP 2022-01-11 09:21:05 Helene Anderson [facility] GLUCOSE POC 2022-01-11 07:54:00 Helene Anderson [facility] BASIC METABOLIC PANEL 2022-01-11 04:07:00 Merissa Richards [facility] MAGNESIUM 2022-01-11 04:07:00 [facility] 2022-01-11 04:07:00 [facility] CBC/DIFF 2022-01-11 04:06:00 [facility] IRON PROFILE 2022-01-11 04:06:00 Merissa Richards [facility] FOLIC ACID 2022-01-11 04:06:00 [facility] CBC 2022-01-11 04:06:00 Merissa Richards [facility] h GLUCOSE POC 2022-01-10 18:16:00 Helene Anderson [facility] URINALYSIS 2022-01-10 16:10:00 [facility] UR[facility] 2022-01-10 16:10:00 Merissa Richards [facility] h SARS-COV-2, FLU A/B, RSV 2022-01-10 15:54:00 Merissa Richards [facility] CORONAVIRUS, COVID-19, OLENA 2022-01-10 15:54:[address] [facility] BASIC METABOLIC PANEL 2022-01-10 15:54:00 Merissa Richards [facility] VITAMIN B12 2022-01-10 15:54:00 [facility] VBG POC 2022-01-10 11:14:00 Unknown, Dia Lynne [facility] CBC/DIFF 2022-01-10 11:13:00 Antoine Hester [facility] BASIC METABOLIC PANEL 2022-01-10 11:13:00 Antoine Hester [facility] LACTIC ACID 2022-01-10 11:13:00 Antoine Hester [facility] h CBC 2022-01-10 11:13:00 Antoine Hester [facility] LIVER PROFILE 2022-01-10 11:13:00 Merissa Richards [facility] CK, TOTAL 2022-01-10 11:13:00 [facility] FERR[facility] 2022-01-10 11:13:00 Merissa Richards [facility] CREATINE KINASE MB (CKMB) 2022-01-10 11:13:00 Merissa Richards [facility] XRAY CHEST 2 VIEWS 2022-01-08 21:50:14 Tanja Sebastian [facility] CBC/DIFF 2022-01-08 21:27:00 Tanja Sebastian [facility] BASIC METABOLIC PANEL 2022-01-08 21:27:00 Tanja Sebastian [facility] LIVER PROFILE 2022-01-08 21:27:00 Tanja Sebastian [facility] CK, TOTAL 2022-01-08 21:27:00 Randa Sebastianandra Watson [facility] TROPONIN I 2022-01-08 21:27:00 Tanja Sebastian [facility] CBC 2022-01-08 21:27:00 Randa Sebastianandra Watson [facility] CREATINE KINASE MB (CKMB) 2022-01-08 21:27:00 Randa Sebastianandra [facility] 12 LEAD EKG 2022-01-08 20:59:56 Tanja Sebastian [facility] COMP. METABOLIC PANEL 2021-09-14 03:41:00 Mickey Ramos [facility] ([id number]) [facility] CBC WITH DIFF 2021-09-14 03:41:00 Mickey Ramos [facility] CT HEAD WO CONTRAST 2021-09-12 14:10:00 Alona Carty [facility] TROPONIN I 2021-09-12 13:00:00 Odin [facility] BASIC METABOLIC PANEL (NA, 2021-09-12 13:00:00 Odin [facility] K, CL, CO2, GLUCOSE, BUN, Medica l Branch CREATININE, CA) CBC WITH DIFF 2021-09-12 13:00:00 Odin [facility] N-TERMINAL PRO-BNP 2021-09-12 13:00:00 Alona Carty [facility] LIPASE 2021-09-09 05:30:00 Sebastian Pacheco [facility] COMP. METABOLIC PANEL 2021-09-09 05:30:00 Sebastian Pacheco [facility] ([id number]) [facility] CBC WITH DIFF 2021-09-09 05:30:00 Sebastian Pacheco [facility] URINALYSIS 2021-09-08 04:45:00 Sebastian Pacheco [facility] CT ABDOMEN PELVIS W 2021-09-08 02:25:23 Sebastian Pacheco [facility] CONTRAST [facility] Branch LIPASE 2021-09-08 02:02:00 Sebastian Pacheco [facility] COMP. METABOLIC PANEL 2021-09-08 02:02:00 Sebastian Pacheco [facility] ([id number]) [facility] CBC WITH DIFF 2021-09-08 02:02:00 Sebastian Pacheco [facility] LACTIC ACID WHOLE BLOOD 2021-09-08 02:02:00 Sebastian Pacheco [facility] COVID-19 (ID NOW RAPID 2021-09-08 01:54:00 Sebastian Pacheco [facility] TESTING) Medical Branch BASIC METABOLIC PANEL (NA, 2021-09-04 12:30:00 Demario Godoy [facility] K, CL, CO2, GLUCOSE, BUN, Medica l Branch CREATININE, CA) BASIC METABOLIC PANEL (NA, 2021-09-04 12:30:00 Demario Godoy [facility] K, CL, CO2, GLUCOSE, BUN, Medica l Branch CREATININE, CA) SURGICAL PATHOLOGY EXAM 2021-09-03 14:01:00 Mayela, [facility] COLOSTOMY REVISION 2021-09-03 12:58:00 Phataoctavia, [facility] COLOSTOMY REVISION 2021-09-03 12:58:00 Phataoctavia, [facility] BASIC METABOLIC PANEL (NA, 2021-09-03 11:26:00 Siddiqi, Cynthia [facility] [employer] [facility] [place] K, CL, CO2, GLUCOSE, BUN, Medica l Branch CREATININE, CA) CBC WITHOUT DIFF 2021-09-03 11:26:00 Siddiqi, [facility] BASIC METABOLIC PANEL (NA, 2021-09-03 11:26:00 Siddiqi, Cynthia [facility] [place] K, CL, CO2, GLUCOSE, BUN, Medica l Branch CREATININE, CA) CBC WITHOUT DIFF 2021-09-03 11:26:00 Siddiqi, [facility] TRANSTHORACIC ECHO (TTE) 2021-09-02 21:22:12 Siddiqi, Cynthia [facility] [place] COMPLETE W/ CONTRAST Medical [facility] TRANSTHORACIC ECHO (TTE) 2021-09-02 21:22:12 Siddiqi, Cynthia [facility] [place] COM[facility]TE W/ CONTRAST Medical [facility] COVID-19 (ID NOW RAPID 2021-09-02 19:35:00 Demario Godoy [facility] TESTING) Medical Branch LAB ONLY COVID 2021-09-02 19:35:00 Demario Godoy [facility] INTERPRETATION Medical Branch COVID-19 (ID NOW RAPID 2021-09-02 19:35:00 Demario Godoy [facility] TESTING) Medical Branch LAB ONLY COVID 2021-09-02 19:35:00 Demario Godoy [facility] INTERPRETATION Medical Branch BASIC METABOLIC PANEL (NA, 2021-09-02 10:40:00 Siddiqi, Cynthia [facility] [facility] [place] K, CL, CO2, GLUCOSE, BUN, Medica l Branch CREATININE, CA) BASIC METABOLIC PANEL (NA, 2021-09-02 10:40:00 Siddiqi, Cynthia [employer] [facility] [place] K, CL, CO2, GLUCOSE, BUN, Medica l Branch CREATININE, CA) BASIC METABOLIC PANEL (NA, 2021-09-01 21:20:00 Siddiqi, Cynthia [facility] [place] K, CL, CO2, GLUCOSE, BUN, Medica l Branch CREATININE, CA) BASIC METABOLIC PANEL (NA, 2021-09-01 21:20:00 Siddiqi, [facility], CL, CO2, GLUCOSE, BUN, Medica l Branch CREATININE, CA) BLOOD CULTURE SCREEN 2021-09-01 08:03:00 Chasity [facility] BASIC METABOLIC PANEL (NA, 2021-09-01 08:03:00 Siddiqi, [facility] K, CL, CO2, GLUCOSE, BUN, Medica l Branch CREATININE, CA) CBC WITH DIFF 2021-09-01 08:03:00 [facility] 2021-09-01 08:03:00 Chasity [facility] BASIC METABOLIC PANEL (NA, 2021-09-01 08:03:00 Siddiqi, [facility] K, CL, CO2, GLUCOSE, BUN, Medica l Branch CREATININE, CA) CBC WITH DIFF 2021-09-01 08:03:00 Siddiqi, [facility] MAGNESIUM 2021-09-01 02:09:00 [facility]OL[facility] PANEL (NA, 2021-09-01 02:09:00 Roberto [facility] K, CL, CO2, GLUCOSE, BUN, Arpita Medica l Branch CREATININE, CA) MAGNESIUM 2021-09-01 02:09:00 [facility] BASIC [facility]OLIC PANEL (NA, 2021-09-01 02:09:00 Roberto [facility] K, CL, CO2, GLUCOSE, BUN, Arpita Medica l Branch CREATININE, CA) LACTIC ACID WHOLE BLOOD 2021-08-31 12:40:00 Siddiqi, [facility] LACTIC ACID WHOLE BLOOD 2021-08-31 12:40:00 Siddiqi, [facility] BASIC METABOLIC PANEL (NA, 2021-08-31 11:44:00 Gaspar, [facility] K, CL, CO2, GLUCOSE, BUN, Medica l Branch CREATININE, CA) BASIC METABOLIC PANEL (NA, 2021-08-31 11:44:00 Gaspar, [facility] K, CL, CO2, GLUCOSE, BUN, Medica l Branch CREATININE, CA) BASIC METABOLIC PANEL (NA, 2021-08-31 06:29:00 Gaspar, [facility] K, CL, CO2, GLUCOSE, BUN, Medica l Branch CREATININE, CA) LACTIC ACID WHOLE BLOOD 2021-08-31 06:29:00 [facility] BASIC METABOLIC PANEL (NA, 2021-08-31 06:29:00 [facility] K, CL, CO2, GLUCOSE, BUN, Medica l Branch CREATININE, CA) LACTIC ACID WHOLE BLOOD 2021-08-31 06:29:[address] [facility] BLOOD CULTURE SCREEN 2021-08-31 06:28:00 Chasity [facility] BLOOD CULTURE WORKUP 2021-08-31 06:28:00 Chasity [facility] GRAM POSITIVE BLOOD 2021-08-31 06:28:00 [facility] [place] PROBE-AEROBIC BLOOD CULTURE SCREEN 2021-08-31 06:28:00 Chasity [facility] BLOOD CULTURE WORKUP 2021-08-31 06:28:00 Chasity [facility] GRAM POSITIVE BLOOD 2021-08-31 06:28:00 [facility] PROBE-AEROBIC XR CHEST 2 VW 2021-08-31 03:08:00 [facility] 2 VW 2021-08-31 03:08:00 Riccardo [facility] OSMOLALITY, SERUM OR 2021-08-31 02:44:00 [facility]OP[facility] 2021-08-31 02:44:00 [facility]card[facility] THYROID STIMULATING 2021-08-31 02:44:00 Chasity [facility] BASIC METABOLIC PANEL (NA, 2021-08-31 02:44:00 Riccardo [facility] K, CL, CO2, GLUCOSE, BUN, [facility] CREATININE, CA) OSMOLALITY, SERUM OR 2021-08-31 02:44:00 [facility] TROPONIN I 2021-08-31 02:44:00 Riccardo [facility] THYROID STIMULATING 2021-08-31 02:44:00 Chasity [facility] BASIC METABOLIC PANEL (NA, 2021-08-31 02:44:00 Riccardo [facility] K, CL, CO2, GLUCOSE, BUN, Merissa [facility] CREATININE, CA) OSMOLALITY URINE 2021-08-31 00:08:00 Chasity [facility] URINALYSIS 2021-08-31 00:08:00 Riccardo [facility] SODIUM, URINE RANDOM 2021-08-31 00:08:00 Chasity [facility] CHLORIDE, URINE RANDOM 2021-08-31 00:08:[address] [facility] OSMOLALITY URINE 2021-08-31 00:08:00 Chasity [facility] URINALYSIS 2021-08-31 00:08:00 Riccardo [facility] SODIUM, URINE RANDOM 2021-08-31 00:08:00 Chasity [facility] CHLORIDE, URINE RANDOM 2021-08-31 00:08:00 [facility] 2021-08-30 23:27:00 Riccardo [facility] COMP. METABOLIC PANEL 2021-08-30 23:27:00 Riccardo [facility] ([id number]) [facility] CBC WITH DIFF 2021-08-30 23:27:00 [facility] N-TERMINAL PRO-BNP 2021-08-30 23:27:00 Gayatri [facility] TROPONIN I 2021-08-30 23:27:00 Riccard[facility] COMP. METABOLIC PANEL 2021-08-30 23:27:00 Riccardo [facility] ([id number]) [facility] CBC WITH DIFF 2021-08-30 23:27:00 Riccardo [facility] N-TERMINAL PRO-BNP 2021-08-30 23:27:00 Gayatri Gu [facility] HB ECG ROUTINE & RHYTHM 2021-08-30 23:04:48 [facility] & RHYTHM 2021-08-30 23:04:48 Gayatri Gu Un [facility] XR CHEST 1 VW 2021-08-30 00:31:51 Alvarez Austin [facility] POCT RAPID STREP SCREEN 2021-08-30 00:24:00 Alvarez Austin [facility] FOR GROUP A [facility] GALV ONLY - INFLUENZA A B 2021-08-30 00:15:00 Alvarez Austin [facility] RSV PCR Medical Branch COVID-19 (MOLECULAR 2021-08-30 00:15:00 Alvarez Austin [facility] TESTING [facility] NUCLEIC ACID AMPLIFICATION) PREALBUMIN, SERUM 2021-08-05 10:46:00 Cesar [facility] PHOSPHORUS 2021-08-05 10:46:00 [facility] 2021-08-05 10:46:00 [facility] MAGNESIUM 2021-08-05 10:46:00 Cesar, Adil [facility] BASIC METABOLIC PANEL (NA, 2021-08-05 10:46:00 Jessica Guerrero [facility] K, CL, CO2, GLUCOSE, BUN, Medica l Branch CREATININE, CA) CBC WITH DIFF 2021-08-05 10:46:00 Cesar liu [facility] COVID-19 (ID NOW RAPID 2021-08-05 00:29:00 Jessica Guerrero [facility] TESTING Medical Branch PHOSPHORUS 2021-08-04 11:37:00 Hakeem Jo [facility] MAGNESIUM 2021-08-04 11:37:[address] [facility] BASIC METABOLIC PANEL (NA, 2021-08-04 11:37:00 [facility], CL, CO2, GLUCOSE, BUN, Skyler Medica l Branch CREATININE, CA) CBC WITH DIFF 2021-08-04 11:37:00 Hakeem Jo [facility] PHOSPHORUS 2021-08-03 10:36:00 Hakeem Jo [facility] MAGNESIUM 2021-08-03 10:36:00 Hakeem Jo [facility] BASIC METABOLIC PANEL (NA, 2021-08-03 10:36:00 Hakeem Jo, [facility], CL, CO2, GLUCOSE, BUN, Skyler Medica l Branch CREATININE, CA) CBC WITH DIFF 2021-08-03 10:36:00 Hakeem Jo [facility] PHOSPHORUS 2021-08-02 10:53:00 Hakeem Jo [facility] MAGNESIUM 2021-08-02 10:53:00 Hakeem Jo [facility] BASIC METABOLIC PANEL (NA, 2021-08-02 10:53:00 Hakeem Jo, [facility], CL, CO2, GLUCOSE, BUN, [place] Medica l Branch CREATININE, CA) CBC WITH DIFF 2021-08-02 10:53:00 Hakeem Jo [facility] PHOSPHORUS 2021-08-01 10:03:00 Hakeem Jo [facility] MAGNESIUM 2021-08-01 10:03:[address] [facility] BASIC METABOLIC PANEL (NA, 2021-08-01 10:03:00 Hakeem Jo, [facility] K, CL, CO2, GLUCOSE, BUN, [place] Medica l Branch CREATININE, CA) CBC WITH DIFF 2021-08-01 10:03:00 Hakeem Jo [facility] PREALBUMIN, SERUM 2021-07-31 10:22:00 Antonino jin [facility] [place] [place] [facility] Branc h PHOSPHORUS 2021-07-31 10:22:00 Hakeem Jo [facility] MAGNESIUM 2021-07-31 10:22:[address] [facility] BASIC METABOLIC PANEL (NA, 2021-07-31 10:22:00 Hakeem Jo, U [facility] K, CL, CO2, GLUCOSE, BUN, [place] Medica l Branch CREATININE, CA) CBC WITH DIFF 2021-07-31 10:22:00 Hakeem Jo [facility] COVID-19 (ID NOW RAPID 2021-07-30 06:13:00 Jonah Rees [facility] TESTING) Medical Branch LAB ONLY COVID 2021-07-30 06:13:00 Jonah Rees [facility] INTERPRETATION [facility] CT ABDOMEN PELVIS W 2021-07-30 05:19:01 Jonah Rees [facility] CONTRAST Medical Branch COMP. METABOLIC PANEL 2021-07-30 03:25:00 Jonah Rees [facility] ([id number]) Medical Branch LACTIC ACID WHOLE BLOOD 2021-07-30 02:53:00 Jonah Rees [facility] Medical Branch LIPASE 2021-07-30 02:52:00 Jonah Rees [facility] CBC WITH DIFF 2021-07-30 02:52:00 Jonah Rees [facility] CONSENT/REFUSAL FOR 2021-07-30 02:09:09 Doctor Unassigned, [facility] DIAGNOSIS AND TREATMENT [place] Medical [facility] PHOSPHORUS 2021-07-26 12:30:00 Antonino Dietrich [facility] [place] [place] [facility] MAGNESIUM 2021-07-26 12:30:00 Antonino Dietrich [facility], [facility] [place] [place] [facility] BASIC METABOLIC PANEL (NA, 2021-07-26 12:30:00 Antonino Karlo de [facility] [employer] [facility] [place] K, CL, CO2, GLUCOSE, BUN, [place], [place] Med ical Branch CREATININE, CA) CBC WITH DIFF 2021-07-26 12:30:00 Antonino Dietrich [facility], [facility] [place] [place] [facility] Bran h PHOSPHORUS 2021-07-25 11:32:[address] [facility] MAGNESIUM 2021-07-25 11:32:[address] [facility] BASIC METABOLIC PANEL (NA, 2021-07-25 11:32:00 Antonino Karlo de [facility] [place] K, CL, CO2, GLUCOSE, BUN, [place], [place] [facility] ical [facility] CREATININE, CA) CBC WITH DIFF 2021-07-25 11:32:00 Antonino Dietrich [facility], [facility] [place] [place] [facility] CBC WITH DIFF 2021-07-25 04:13:00 Cesar [facility] PHOSPHORUS 2021-07-24 12:18:00 Cesar [facility] MAGNESIUM 2021-07-24 12:18:00 Cesar, [facility] BASIC METABOLIC PANEL (NA, 2021-07-24 12:18:00 CesarJessica ayala [facility] [employer] [place] K, CL, CO2, GLUCOSE, BUN, Medica l Branch CREATININE, CA) COVID-19 (ID NOW RAPID 2021-07-23 15:23:00 Flaco Lemus [facility] TESTING) Medical Branch LAB ONLY COVID 2021-07-23 15:23:00 Flaco Lemus [facility] INTERPRETATION [facility] URINALYSIS 2021-07-23 12:49:00 Hakeem Jo [facility] PHOSPHORUS 2021-07-23 12:42:00 Hakeem Jo [facility] MAGNESIUM 2021-07-23 12:42:00 Hakeem Jo [facility] BASIC METABOLIC PANEL (NA, 2021-07-23 12:42:00 Beau Benedict [facility] K, CL, CO2, GLUCOSE, BUN, Skyler Medica l [place] CREATININE, CA) CBC WITH DIFF 2021-07-23 12:42:[address] [facility] ABDOMEN PELVIS WO 2021-07-23 08:55:17 Flaco Lemus [facility] EXTERNAL PROVIDER RECORDS 2021-06-25 05:01:00 Doctor Unassigned, [facility] [place] [facility] BASIC METABOLIC PANEL (NA, 2021-06-03 10:37:00 Shweta Anderson [facility] K, CL, CO2, GLUCOSE, BUN, Medica l Branch CREATININE, CA) BASIC METABOLIC PANEL (NA, 2021-06-02 10:54:00 Shweta Anderson [facility] K, CL, CO2, GLUCOSE, BUN, Medica l Branch CREATININE, CA) CLOSTRIDIUM DIFFICILE 2021-06-01 22:51:00 [facility] BY PCR 2021-06-01 22:51:00 Charly Fowler [facility] BASIC METABOLIC PANEL (NA, 2021-06-01 15:42:00 Shweta Anderson [facility] K, CL, CO2, GLUCOSE, BUN, Medica l Branch CREATININE, CA) LACTIC ACID WHOLE BLOOD 2021-06-01 05:38:00 Clementine Castellon [facility] CT ABDOMEN PELVIS W 2021-05-31 23:25:45 Willie Garrett [facility] LIPASE 2021-05-31 22:44:00 Willie Garrett [facility] TROPONIN I 2021-05-31 22:44:00 Willie Garrett [facility] COMP. METABOLIC PANEL 2021-05-31 22:44:00 Willie Garrett [facility] ([id number]) Medical Branch CBC WITH DIFF 2021-05-31 22:44:00 Willie Garrett [facility] COVID-19 (ID NOW RAPID 2021-05-31 22:44:00 Willie Garrett [facility] TESTING) Medical Branch LAB ONLY COVID 2021-05-31 22:44:00 Willie Garrett [facility] INTERPRETATION [facility] PHOSPHORUS 2021-05-21 09:03:00 Cesar [facility] MAGNESIUM 2021-05-21 09:03:00 Cesar [facility] BASIC METABOLIC PANEL (NA, 2021-05-21 09:03:00 NoonanAgatha glover [facility] K, CL, CO2, GLUCOSE, BUN, Medica l Branch CREATININE, CA) CBC WITH DIFF 2021-05-21 09:03:00 Agatha Noonan [facility] XR KUB 2021-05-20 20:02:49 Andrzej [facility] LIPASE 2021-05-20 20:00:00 Andrzej [facility] COMP. METABOLIC PANEL 2021-05-20 20:00:00 Bernardo Donnelly [facility] ([id number]) Medical Branch CBC WITH DIFF 2021-05-20 20:00:00 Andrzej [facility] LACTIC ACID WHOLE BLOOD 2021-05-20 20:00:00 Bernardo Donnelly [facility] COVID-19 (ID NOW RAPID 2021-05-20 20:00:00 Bernardo Donnelly [facility] TESTING) Medical Branch BASIC METABOLIC PANEL (NA, 2021-05-08 10:04:00 Abu Rodrick Lora [facility] K, CL, CO2, GLUCOSE, BUN, Medica l Branch CREATININE, CA) CBC WITH DIFF 2021-05-08 10:04:00 Abu Geno [facility] XR KUB 2021-05-08 09:44:22 Beto [facility] XR ABDOMEN 1 VW 2021-05-08 05:32:36 Abu [facility] CT ABDOMEN PELVIS W 2021-05-08 01:08:43 Beto [facility] CONTRAST Medical Branch HEPATIC FUNCTION PANEL 2021-05-08 00:49:00 Alona Pérez [facility] ([id number]) (ALB,T.PRO,BILI Medical Branch T,BU/BC,ALT,AST,ALK PHOS) BASIC METABOLIC PANEL (NA, 2021-05-08 00:49:00 Alona Pérez [facility] K, CL, CO2, GLUCOSE, BUN, Medica l Branch CREATININE, CA) CBC WITH DIFF 2021-05-08 00:49:00 Beto [facility] COVID-19 (ID NOW RAPID 2021-05-08 00:42:00 Beto [facility] TESTING) Medical Branch LAB ONLY COVID 2021-05-08 00:42:00 Beto [facility] INTERPRETATION [facility] NOTICE OF PRIVACY 2020-09-27 01:47:31 Doctor Unassigned, [facility] PRACTICES [place] [facility] CONSENT/REFUSAL FOR 2020-09-27 01:47:01 Doctor Unassigned, [facility] DIAGNOSIS AND TREATMENT [place] Medical [place] BASIC METABOLIC PANEL (NA, 2020-08-23 10:03:00 Nataly [facility] K, CL, CO2, GLUCOSE, BUN, Medica l Branch CREATININE, CA) CBC WITHOUT DIFF 2020-08-23 10:03:00 [facility] (ID NOW RAPID 2020-08-23 00:23:00 Funmilayo Pinzon Un [facility] TESTING) Medical Branch HB ECG ROUTINE & RHYTHM 2020-08-22 22:19:37 Funmilayo Pinzon U [facility] STRIP Medical Branch HEPATIC FUNCTION PANEL 2020-08-22 22:08:00 Funmilayo Pinzon Un [facility] ([id number]) (ALB,T.PRO,BILI Medical Branch T,BU/BC,ALT,AST,ALK PHOS) BASIC METABOLIC PANEL (NA, 2020-08-22 22:08:00 Nallely Pinzon [facility] K, CL, CO2, GLUCOSE, BUN, Medica l Branch CREATININE, CA) CBC WITH DIFF 2020-08-22 22:08:00 Funmilayo Pinzon [facility] CT SOFT TISSUE NECK W 2020-07-10 00:21:10 Juan M Aguillon [facility] URINALYSIS 2020-07-09 23:07:00 Juan M Aguillon [facility] BASIC METABOLIC PANEL (NA, 2020-07-09 22:51:00 Kirk Aguillon [facility] K, CL, CO2, GLUCOSE, BUN, Medica l Branch CREATININE, CA) CBC WITH DIFF 2020-07-09 22:51:00 Juan M Aguillon [facility] RAPID STREP SCREEN FOR 2020-07-09 22:51:00 Juan M Aguillon [facility] GROUP A Medical Branch COVID-19 (ID NOW RAPID 2020-07-09 22:51:00 Juan M Aguillon [facility] TESTING) Medical [place] CT ABDOMEN PELVIS W 2020-06-05 13:02:55 Travis Valdez [facility] URINALYSIS 2020-06-05 13:02:00 More Goetz [facility] EKG-12 LEAD 2020-06-05 11:57:46 More Goetz [facility] LIPASE 2020-06-05 11:57:00 More Goetz [facility] TROPONIN I 2020-06-05 11:57:00 More Goetz [facility] HEPATIC FUNCTION PANEL 2020-06-05 11:57:00 More Goetz [facility] ([id number]) (ALB,T.PRO,BILI Medical Branch T,BU/BC,ALT,AST,ALK PHOS) BASIC METABOLIC PANEL (NA, 2020-06-05 11:57:00 More Goetz [facility] K, CL, CO2, GLUCOSE, BUN, Medica l Branch CREATININE, CA) CBC WITH DIFF 2020-06-05 11:57:00 More Goetz [facility] LACTIC ACID WHOLE BLOOD 2020-06-05 11:57:00 More Goetz [facility] PHOSPHORUS 2020-05-31 07:54:00 Patricia Katia Sandra [facility] MAGNESIUM 2020-05-31 07:54:00 Dongur Katia Sandra [facility] BASIC METABOLIC PANEL (NA, 2020-05-31 07:54:00 Katia Gomez [facility] K, CL, CO2, GLUCOSE, BUN, Medica l Branch CREATININE, CA) CBC WITH DIFF 2020-05-31 07:54:00 Patricia Katia Sandra [facility] IR CHANGE OF ABSCESS DRAIN 2020-05-30 19:33:43 Ashwin [facility] PHOSPHORUS 2020-05-30 08:19:00 Lambreton Gonzales, [facility] MAGNESIUM 2020-05-30 08:19:00 Lambreton Gonzales, [facility] BASIC METABOLIC PANEL (NA, 2020-05-30 08:19:00 Lambreton Carlos a, [employer] [place] K, CL, CO2, GLUCOSE, BUN, Rex Medica l Branch CREATININE, CA) PHOSPHORUS 2020-05-29 06:43:00 Lambreton Gonzales, [facility] MAGNESIUM 2020-05-29 06:43:00 Lambreton Gonzales, [facility] BASIC METABOLIC PANEL (NA, 2020-05-29 06:43:00 Lambreton Carlos a, [employer] [place] K, CL, CO2, GLUCOSE, BUN, Rex [facility]ica [facility] Branch CREATININE, CA) PHOSPHORUS 2020-05-28 09:08:00 Lambreton Gonzales, [facility] MAGNESIUM 2020-05-28 09:08:00 Lambreton Gonzales, [facility] BASIC METABOLIC PANEL (NA, 2020-05-28 09:08:00 Lambreton Carlos a, [employer] [place] K, CL, CO2, GLUCOSE, BUN, Rex Medica l Branch CREATININE, CA) PHOSPHORUS 2020-05-27 09:33:00 Lambreton Gonzales, [facility] MAGNESIUM 2020-05-27 09:33:00 Lambreton Gonzales, [facility] BASIC METABOLIC PANEL (NA, 2020-05-27 09:33:00 Lambangeloon Carlos a, [employer] [place] K, CL, CO2, GLUCOSE, BUN, Rex [facility]ica [facility] Branch CREATININE, CA) PHOSPHORUS 2020-05-26 09:27:00 Lambreton Gonzales, [facility] MAGNESIUM 2020-05-26 09:27:00 Lambreton Gonzales, [facility] BASIC METABOLIC PANEL (NA, 2020-05-26 09:27:00 Lambreton Carlos a, [employer] [place] K, CL, CO2, GLUCOSE, BUN, [facility]ica l Branch CREATININE, CA) PHOSPHORUS 2020-05-25 21:42:00 Lambreton Gonzales, [facility] MAGNESIUM 2020-05-25 21:42:00 Lambreton Gonzales, [facility] BASIC METABOLIC PANEL (NA, 2020-05-25 21:42:00 Lambreton Carlos a, [employer] [place] K, CL, CO2, GLUCOSE, BUN, Rex [facility]ica l Branch CREATININE, CA) CBC WITH DIFF 2020-05-25 21:42:00 Lambangeloon Gonzales, [facility] XR KUB 2020-05-25 20:39:54 Lambreton Gonzales, [facility] PHOSPHORUS 2020-05-25 08:48:00 Lambreton Gonzales, [facility] MAGNESIUM 2020-05-25 08:48:00 Lambreton Gonzales, [facility] BASIC METABOLIC PANEL (NA, 2020-05-25 08:48:00 Lambreton Carlos a, [employer] [place] K, CL, CO2, GLUCOSE, BUN, [facility] CREATININE, CA) PHOSPHORUS 2020-05-24 20:41:00 Lambreton Gonzales, [facility] MAGNESIUM 2020-05-24 20:41:[address] [facility] BASIC METABOLIC PANEL (NA, 2020-05-24 20:41:00 Socorro escoto [facility] K, CL, CO2, GLUCOSE, BUN, Rex Medica [facility] CREATININE, CA) IR CHANGE OF ABSCESS DRAIN 2020-05-24 17:57:11 Vance Stafford U [facility] IR ASPIRATION ABSCESS 2020-05-24 17:24:40 Randa [facility] BULLA OR CYST BY NEEDLE [facility] ASPIRATE OR ABSCESS 2020-05-24 17:23:00 Nixon Prince [facility] CULTURE(AEROBIC/ANAEROBIC) Medic wy Branch CBC WITH DIFF 2020-05-24 11:08:00 [facility]EL[facility] W 2020-05-23 15:02:24 Randa [facility] CONTRAST [facility] BASIC METABOLIC PANEL (NA, 2020-05-23 09:45:00 Sumeet [facility] K, CL, CO2, GLUCOSE, BUN, Anahi Medica l Branch CREATININE, CA) COVID-19 (PCR MOLECULAR 2020-05-23 06:53:00 Mayela [facility] TESTING) [facility] URINALYSIS 2020-05-22 21:41:00 Colette Algeri [facility] LIPASE 2020-05-22 21:26:00 Lopez, [facility] HEPATIC FUNCTION PANEL 2020-05-22 21:26:00 LopezAlex sweeney [facility] ([id number]) (ALB,T.PRO,BILI Medical Branch T,BU/BC,ALT,AST,ALK PHOS) BASIC METABOLIC PANEL (NA, 2020-05-22 21:26:00 Alex Lopez [facility] K, CL, CO2, GLUCOSE, BUN, Medica l Branch CREATININE, CA) CBC WITH DIFF 2020-05-22 21:26:00 [facility] PROTHROMBIN TIME / INR 2020-05-22 21:26:00 LopezAlex sweeney [facility] ACTIVATED PARTIAL THRMPLAS 2020-05-22 21:26:00 Alex Lopez [facility] SELENA [facility] [facility] XR CHEST 1 VW 2020-05-22 20:55:00 Alex Lopez [facility] HOSPITAL ADMISSION 2020-05-22 05:01:00 Doctor Unassigned, [facility] [place] [facility] URINALYSIS 2020-05-20 09:58:00 Jonah Rodriguez [facility] COVID-19 (ID NOW RAPID 2020-05-20 09:48:00 Jonah Rodriguez [facility] TESTING) Medical Branch CT ABDOMEN PELVIS W 2020-05-20 04:07:43 Jonah Rodriguez [facility] CONTRAST Medical Branch LIPASE 2020-05-20 03:09:00 Jonah Rodriguez [facility] MAGNESIUM 2020-05-20 03:09:00 Jonah Rodriguez [facility] TROPONIN I 2020-05-20 03:09:00 Michael [facility] COMP. METABOLIC PANEL 2020-05-20 03:09:00 Jonah Rodriguez [facility] ([id number]) [facility] Branch CBC WITH DIFF 2020-05-20 03:09:00 Jonah Rodriguez [facility] PHOSPHORUS 2020-05-10 09:13:00 Randa [facility] MAGNESIUM 2020-05-10 09:13:00 Randa [facility] BASIC METABOLIC PANEL (NA, 2020-05-10 09:13:00 Randa Julio [facility] K, CL, CO2, GLUCOSE, BUN, Medica l Branch CREATININE, CA) CBC WITH DIFF 2020-05-10 09:13:00 Randa [facility] PHOSPHORUS 2020-05-09 10:28:00 Randa [facility] MAGNESIUM 2020-05-09 10:28:00 [facility] BASIC METABOLIC PANEL (NA, 2020-05-09 10:28:00 Randa Julio [facility] K, CL, CO2, GLUCOSE, BUN, Medica l Branch CREATININE, CA) CBC WITH DIFF 2020-05-09 10:28:00 [facility] 2020-05-08 11:18:00 [facility] MAGNESIUM 2020-05-08 11:18:00 [facility] BASIC METABOLIC PANEL (NA, 2020-05-08 11:18:00 [facility] K, CL, CO2, GLUCOSE, BUN, Medica l Branch CREATININE, CA) CBC WITH DIFF 2020-05-08 11:18:00 [facility] PHOSPHORUS 2020-05-07 09:21:00 [facility] MAGNESIUM 2020-05-07 09:21:00 [facility] BASIC METABOLIC PANEL (NA, 2020-05-07 09:21:00 [facility] K, CL, CO2, GLUCOSE, BUN, Medica l Branch CREATININE, CA) CBC WITH DIFF 2020-05-07 09:21:00 [facility] PHOSPHORUS 2020-05-06 09:57:00 [facility] MAGNESIUM 2020-05-06 09:57:00 [facility] BASIC METABOLIC PANEL (NA, 2020-05-06 09:57:00 [facility] K, CL, CO2, GLUCOSE, BUN, Medica l Branch CREATININE, CA) CBC WITH DIFF 2020-05-06 09:56:00 [facility] IR DRAINAGE BY CATHETER 2020-05-05 19:55:00 [facility] PERITONEAL OR Medical Branch RETROPERITONEAL BODY FLUID 2020-05-05 19:06:00 Nixon Prince [facility] CULTURE(AEROBIC/ANAEROBIC) [facility] FUNGUS (ROUTINE) CULTURE 2020-05-05 19:06:00 Nixon Prince [facility] BODY FLUID 2020-05-05 19:00:00 [facility]EROBIC) [facility] FUNGUS (ROUTINE) CULTURE 2020-05-05 19:00:00 Ivan Guthrie [facility] PREPARE PACKED RBC 2020-05-05 15:59:33 Hakeem Jo [facility] HB ABO GROUPING 2020-05-05 10:55:[address] [facility] PREALBUMIN, SERUM 2020-05-05 08:56[facility]00 [facility] 2020-05-05 08:56:00 [facility] MAGNESIUM 2020-05-05 08:56:00 [facility] BASIC METABOLIC PANEL (NA, 2020-05-05 08:56:00 Randa, [facility] K, CL, CO2, GLUCOSE, BUN, Medica l Branch CREATININE, CA) CBC WITH DIFF 2020-05-05 08:56:00 [facility] URINALYSIS 2020-05-05 05:11:00 Lora Hall [facility] CT ABDOMEN PELVIS W 2020-05-05 04:18:56 Lora Hall [facility] 2020-05-05 02:35:00 Lora Hall [facility] COMP. METABOLIC PANEL 2020-05-05 02:35:00 Lora Hall [facility] ([id number]) [facility] CBC WITH DIFF 2020-05-05 02:35:00 Lora Hall [facility] COVID-19 (ID NOW RAPID 2020-05-05 02:27:00 Lora Hall [facility] TESTING) Medical Branch HOSPITAL ADMISSION 2020-05-04 05:01:00 Doctor Unassigned, [facility] [place] [facility] CBC WITH DIFF 2020-05-01 11:32:00 Randa [facility] PHOSPHORUS 2020-05-01 11:32:00 Randa [facility] MAGNESIUM 2020-05-01 11:32:00 [facility] BASIC METABOLIC PANEL (NA, 2020-05-01 11:32:00 Randa [facility] K, CL, CO2, GLUCOSE, BUN, Medica l Branch CREATININE, CA) CBC WITH DIFF 2020-04-29 11:31:00 [facility] PHOSPHORUS 2020-04-29 11:31:00 [facility] MAGNESIUM 2020-04-29 11:31:00 Randa [facility] BASIC METABOLIC PANEL (NA, 2020-04-29 11:31:00 Randa [facility] K, CL, CO2, GLUCOSE, BUN, Medica l Branch CREATININE, CA) CBC WITH DIFF 2020-04-28 08:51:[address] [facility] MAGNESIUM 2020-04-28 08:51:[address] [facility] BASIC METABOLIC PANEL (NA, 2020-04-28 08:51:00 Becky, [facility] K, CL, CO2, GLUCOSE, BUN, Cathryn Medica l Branch CREATININE, CA) CBC WITH DIFF 2020-04-27 09:34:[address] [facility] MAGNESIUM 2020-04-27 09:34:[address] [facility] BASIC METABOLIC PANEL (NA, 2020-04-27 09:34:00 Becky, [facility] K, CL, CO2, GLUCOSE, BUN, Cathryn [facility] CREATININE, CA) CBC WITH DIFF 2020-04-26 09:27:[address] [facility] MAGNESIUM 2020-04-26 09:27:[address] [facility] BASIC METABOLIC PANEL (NA, 2020-04-26 09:27:00 Becky [facility] K, CL, CO2, GLUCOSE, BUN, Cath[facility] CREATININE, CA) CBC WITH DIFF 2020-04-25 08:59:[address] [facility] MAGNESIUM 2020-04-25 08:59:[address] [facility] BASIC METABOLIC PANEL (NA, 2020-04-25 08:59:00 Becky, [facility] K, CL, CO2, GLUCOSE, BUN, Cath[facility] CREATININE, CA) CBC WITH DIFF 2020-04-24 09:44:00 Becky, [facility] 2020-04-24 09:44:[address] [facility] BASIC METABOLIC PANEL (NA, 2020-04-24 09:44:00 Becky [facility] K, CL, CO2, GLUCOSE, BUN, Cathryn [facility] CREATININE, CA) CT ABDOMEN PELVIS W 2020-04-23 23:24:02 Grant Cheema, [facility] CONTRAST [facility] CT THORAX W CONTRAST 2020-04-23 23:24:02 Grant Cheema, [facility] COVID-19 (ID NOW RAPID 2020-04-23 15:06:00 Grant Cheema, [facility] TESTING) [facility] PREALBUMIN, SERUM 2020-04-23 13:42:00 Grant Cheema, [facility] POTASSIUM SERUM 2020-04-23 13:42:[address] [facility] CBC WITH DIFF 2020-04-23 10:17:[address] [facility] MAGNESIUM 2020-04-23 10:17:[address] [facility] BASIC METABOLIC PANEL (NA, 2020-04-23 10:17:00 Becky [facility] K, CL, CO2, GLUCOSE, BUN, Cathryn Medica [facility] [place] CREATININE, CA) XR CHEST 1 VW 2020-04-23 10:03:[address] [facility] MAGNESIUM 2020-04-22 10:37:[address] [facility] BASIC METABOLIC PANEL (NA, 2020-04-22 10:37:00 Becky [facility] K, CL, CO2, GLUCOSE, BUN, Cathryn [facility]ica [facility] [place] CREATININE, CA) CBC WITH DIFF 2020-04-22 10:30:[address] [facility] XR CHEST 1 VW 2020-04-22 07:30:[address] [facility] CBC WITH DIFF 2020-04-21 13:09:[address] [facility] MAGNESIUM 2020-04-21 13:09:[address] [facility] BASIC METABOLIC PANEL (NA, 2020-04-21 13:09:00 Becky [facility] K, CL, CO2, GLUCOSE, BUN, [facility] CREATININE, CA) XR CHEST 1 VW 2020-04-21 06:41:00 [facility] 1 VW 2020-04-20 11:03:41 [facility] CBC WITH DIFF 2020-04-20 09:45:00 Katrina [facility] PREALBUMIN, SERUM 2020-04-20 09:45:[address] [facility] PHOSPHORUS 2020-04-20 09:45:00 Carola [facility] MAGNESIUM 2020-04-20 09:45:00 Katrina [facility] BASIC METABOLIC PANEL (NA, 2020-04-20 09:45:00 [facility], CL, CO2, GLUCOSE, BUN, Medica l Branch CREATININE, CA) XR CHEST 1 2020-04-19 10:13:[address] [facility] CBC WITH DIFF 2020-04-19 10:10:00 Katrina [facility] PHOSPHORUS 2020-04-19 10:10:00 Carola [facility] MAGNESIUM 2020-04-19 10:10:00 Katrina [facility] BASIC METABOLIC PANEL (NA, 2020-04-19 10:10:00 [facility] K, CL, CO2, GLUCOSE, BUN, Medica l Branch CREATININE, CA) XR CHEST 1 2020-04-18 11:01:[address] [facility] CBC WITH DIFF 2020-04-18 10:19:00 Katrina [facility] PHOSPHORUS 2020-04-18 10:19:00 Carola [facility] MAGNESIUM 2020-04-18 10:19:00 Katrina [facility] BASIC METABOLIC PANEL (NA, 2020-04-18 10:19:00 Katrina [facility] K, CL, CO2, GLUCOSE, BUN, Medica l Branch CREATININE, CA) XR CHEST 1 VW 2020-04-17 18:58:00 [facility] DIFF 2020-04-17 09:33:00 Katrina [facility] PHOSPHORUS 2020-04-17 09:33:00 Carola [facility] MAGNESIUM 2020-04-17 09:33:00 Katrina [facility] BASIC METABOLIC PANEL (NA, 2020-04-17 09:33:00 Katrina [facility] K, CL, CO2, GLUCOSE, BUN, Medica l Branch CREATININE, CA) XR CHEST 1 2020-04-17 08:52:00 Grant Cheema [facility] XR CHEST 1 2020-04-16 23:45:00 [facility] 2020-04-16 [facility]:50[facility]IC/ANAEROBIC) [facility] FUNGUS (ROUTINE) CULTURE 2020-04-16 21:50:00 Rivera Vance [facility] CYTO PLEURAL FLUID 2020-04-16 21:50:00 Rivera [facility] LDH TOTAL BODY FLUID 2020-04-16 21:50:00 Rivera [facility] AMYLASE BODY FLUID 2020-04-16 21:50:00 Rivera [facility] GLUCOSE BODY FLUID 2020-04-16 21:50:00 Rivera [facility] PH, BODY FLUID 2020-04-16 21:50:00 Rivera [facility] T.PROTEIN BODY FLUID 2020-04-16 21:50:00 Rivera [facility] BODY FLUID DIRECT COUNT 2020-04-16 21:50:00 Vance Stafford [facility] IR PLEURAL DRAINAGE WITH 2020-04-16 21:36:25 Rosaura Pena [facility] TUBE WITH IMAGING [facility] PROTHROMBIN TIME / INR 2020-04-16 16:07:[address] [facility] CBC WITH DIFF 2020-04-16 10:07:00 Katrina [facility] PHOSPHORUS 2020-04-16 10:07:00 Carola [facility] MAGNESIUM 2020-04-16 10:07:00 Katrina [facility] BASIC METABOLIC PANEL (NA, 2020-04-16 10:07:00 [facility], CL, CO2, GLUCOSE, BUN, Medica l Branch CREATININE, CA) CT ABDOMEN PELVIS W 2020-04-16 07:02:21 Grant Cheema [facility] CONTRAST [facility] CBC WITH DIFF 2020-04-15 10:02:00 Katrina [facility] PHOSPHORUS 2020-04-15 10:02:00 Carola [facility] MAGNESIUM 2020-04-15 10:02:00 Katrina [facility] BASIC METABOLIC PANEL (NA, 2020-04-15 10:02:00 [facility] K, CL, CO2, GLUCOSE, BUN, Medica l Branch CREATININE, CA) CBC WITH DIFF 2020-04-14 10:26:00 Katrina [facility] PHOSPHORUS 2020-04-14 10:26:00 Carola [facility] MAGNESIUM 2020-04-14 10:26:00 Katrina [facility] BASIC METABOLIC PANEL (NA, 2020-04-14 10:26:00 Katrina [facility] K, CL, CO2, GLUCOSE, BUN, Medica l Branch CREATININE, CA) BASIC METABOLIC PANEL (NA, 2020-04-13 23:53:00 Grant Santana i [facility] K, CL, CO2, GLUCOSE, BUN, Danny Medica l Branch CREATININE, CA) CBC WITHOUT DIFF 2020-04-13 23:53:00 Grant Cheema, [facility] IR DRAINAGE BY CATHETER 2020-04-13 20:35:08 Grant Cheema, [facility] PERITONEAL OR [facility] RETROPERITONEAL BODY FLUID 2020-04-13 20:05:00 Neris Grier [facility] CULTURE(AEROBIC/ANAEROBIC) Medic al [place] [facility] TOTAL BODY FLUID 2020-04-13 20:05:00 Grant Cheema, [facility] GLUCOSE BODY FLUID 2020-04-13 20:05:00 Grant Cheema [facility] T.PROTEIN BODY FLUID 2020-04-13 20:05:00 Grant Cheema, [facility] BODY FLUID DIRECT COUNT 2020-04-13 20:05:00 Grant Cheema, [facility] CBC WITH DIFF 2020-04-13 10:44:00 Katrina [facility] PHOSPHORUS 2020-04-13 10:44:00 Carola, [facility] MAGNESIUM 2020-04-13 10:44:00 [facility] BASIC METABOLIC PANEL (NA, 2020-04-13 10:44:00 Yosvany Herndon [facility] K, CL, CO2, GLUCOSE, BUN, [facility] CREATININE, CA) CT ABDOMEN PELVIS W 2020-04-12 21:23:19 Grant Cheema [facility] CONTRAST [facility] URINALYSIS 2020-04-12 20:43:00 Rosaura Pena [facility] URINE CULTURE 2020-04-12 20:43:00 Rosaura Pena [facility] BLOOD CULTURE WORKUP 2020-04-12 18:51:00 [facility] GRAM NEGATIVE BLOOD 2020-04-12 18:51:00 Rosaura [facility] PATHOGENS DNA [facility] PROBE-ANAEROBIC BLOOD CULTURE SCREEN 2020-04-12 18:51:00 Rosaura Pena [facility] BLOOD CULTURE SCREEN 2020-04-12 18:50:00 Rosaura Pena [facility] CBC WITH DIFF 2020-04-12 08:46:00 Katrina [facility] PHOSPHORUS 2020-04-12 08:46:00 Carola [facility] MAGNESIUM 2020-04-12 08:46:00 Katrina [facility] BASIC METABOLIC PANEL (NA, 2020-04-12 08:46:00 [facility] K, CL, CO2, GLUCOSE, BUN, Medica l Branch CREATININE, CA) CBC WITH DIFF 2020-04-11 08:54:00 Katrina [facility] PHOSPHORUS 2020-04-11 08:54:00 Carola [facility] MAGNESIUM 2020-04-11 08:54:00 Katrina [facility] BASIC METABOLIC PANEL (NA, 2020-04-11 08:54:00 Katrina [facility] K, CL, CO2, GLUCOSE, BUN, Medica l Branch CREATININE, CA) CBC WITH DIFF 2020-04-10 09:49:00 Katrina [facility] PHOSPHORUS 2020-04-10 09:49:00 Carola [facility] MAGNESIUM 2020-04-10 09:49:00 Katrina [facility] XR CHEST 1 VW 2020-04-09 11:27:00 Grant Cheema [facility] CBC WITH DIFF 2020-04-09 09:07:00 Katrina [facility] PHOSPHORUS 2020-04-09 09:07:00 Carola [facility] MAGNESIUM 2020-04-09 09:07:00 Katrina [facility] HEPATIC FUNCTION PANEL 2020-04-09 09:07:00 Grant Cheema [facility] ([id number]) (ALB,T.PRO,[facility] T,BU/BC,ALT,AST,ALK PHOS) BASIC METABOLIC PANEL (NA, 2020-04-09 09:07:00 Yosvany Herndon [facility] K, CL, CO2, GLUCOSE, BUN, Medica l Branch CREATININE, CA) AC PANEL 20 + LACTIC ACID 2020-04-08 21:11:00 [facility] (AUTOMATED) 2020-04-08 12:27:00 Bia Pedro Uni [facility] AC PANEL 21 + LACTIC ACID 2020-04-08 09:34:00 Bigg [facility] PO[facility]SE (AUTOMATED) 2020-04-08 09:33:00 Bia Pedro [facility] CBC WITH DIFF 2020-04-08 09:26:00 Katrina [facility] MAGNESIUM 2020-04-08 09:26:00 [facility] BASIC METABOLIC PANEL (NA, 2020-04-08 09:26:00 Yosvany Herndon [facility] K, CL, CO2, GLUCOSE, BUN, Medica l Branch CREATININE, CA) POCT GLUCOSE (AUTOMATED) 2020-04-08 04:24:00 Griffin Pedroa Uni [facility] POCT GLUCOSE (AUTOMATED) 2020-04-08 00:36:00 Mayela, Bia [facility] PO[facility]SE (AUTOMATED) 2020-04-07 21:24:00 Griffin Pedroa Uni [facility] POCT GLUCOSE (AUTOMATED) 2020-04-07 16:49:00 Griffin Pedroa Uni [facility] AC PANEL 20 + LACTIC ACID 2020-04-07 14:14:00 [facility] LACTIC ACID WHOLE BLOOD 2020-04-07 13:53:00 [facility] PO[facility]UCOSE (AUTOMATED) 2020-04-07 12:50:00 Mayela [facility] AC PANEL 20 + LACTIC ACID 2020-04-07 11:16:00 [facility] MAGNESIUM 2020-04-07 08:48:00 Katrina [facility] BASIC METABOLIC PANEL (NA, 2020-04-07 08:48:00 Yosvany Herndon [facility] K, CL, CO2, GLUCOSE, BUN, Medica l Branch CREATININE, CA) CBC WITH DIFF 2020-04-07 08:48:00 Katrina [facility] XR CHEST 1 VW 2020-04-07 08:10:00 [facility] POCT GLUCOSE (AUTOMATED) 2020-04-07 04:36:00 Bia Pedro [facility] AC PANEL 21 + LACTIC ACID 2020-04-07 02:05:00 Bigg Lawton [facility] MRSA / MSSA SCREEN BY PCR, 2020-04-07 02:05:00 Grant Santana i [facility] BLOOD CULTURE SCREEN 2020-04-07 02:05:00 Grant Cheema [facility] POCT GLUCOSE (AUTOMATED) 2020-04-07 00:37:00 Bia Pedro [facility] HCV ANTIBODY 2020-04-06 23:44:00 Grant Cheema [facility] POCT GLUCOSE (AUTOMATED) 2020-04-06 23:43:00 Bia Pedro [facility] HIV 1/2 AG-AB WITH REFLEX 2020-04-06 23:30:00 Grant Cheema [facility] POCT GLUCOSE (AUTOMATED) 2020-04-06 22:14:00 Bia Pedro [facility] ECHO ROUTINE W/DOPPLER 2020-04-06 20:25:55 Katrina Yosvany [facility] PROTHROMBIN TIME / INR 2020-04-06 19:00:00 Rosaura Pena [facility] ACTIVATED PARTIAL THRMPLAS 2020-04-06 19:00:00 [facility] MAGNESIUM 2020-04-06 19:00:[address] [facility] BASIC METABOLIC PANEL (NA, 2020-04-06 19:00:00 Becky [facility] K, CL, CO2, GLUCOSE, BUN, [facility] CREATININE, CA) COMP. METABOLIC PANEL 2020-04-06 19:00:00 Yosvany Herndon [facility] ([id number]) [facility] CBC WITH DIFF 2020-04-06 19:00:00 [facility] AC PANEL 21 + LACTIC ACID 2020-04-06 18:59:00 Simi [facility] ABG+COOX+NA+K+GLU+CA2+ 2020-04-06 16:06:00 Bia Pedro [facility] INTUBATION 2020-04-06 16:04:59 Ana Syed [facility] XR CHEST 1 VW 2020-04-06 15:43:00 [facility] SURGICAL PATHOLOGY EXAM 2020-04-06 15:12:00 Juventino Mccabe [facility] CENTRAL LINE 2020-04-06 14:52:37 Cynthia Herring [facility] E [facility] ARTERIAL LINE 2020-04-06 14:51:44 Ana Syed [facility] ASPIRATE OR ABSCESS 2020-04-06 14:50:29 Person, Juventino [facility] CULTURE(AEROBIC/ANAEROBIC) [facility] [employer] CULTURE 2020-04-06 14:50:29 Person, [facility] FUNGUS (ROUTINE) CULTURE 2020-04-06 14:50:29 Person, Juventino Herring [facility] ABG+COOX+NA+K+GLU+CA2+ 2020-04-06 14:46:00 Bia Pedro [facility] HB ABO GROUPING 2020-04-06 14:39:00 Dana Sampson [facility] EXPLORATORY LAPAROTOMY 2020-04-06 13:51:00 Juventino Mccabe [facility] URINE CULTURE 2020-04-06 13:48:00 Grant Cheema [facility] XR KUB 2020-04-06 13:34:22 Grant Cheema, [facility] XR CHEST 1 VW 2020-04-06 13:34:22 Grant Cheema, [facility] MAGNESIUM 2020-04-06 11:47:[address] [facility] BASIC METABOLIC PANEL (NA, 2020-04-06 11:47:00 Becky [facility] K, CL, CO2, GLUCOSE, BUN, Cathryn [facility] CREATININE, CA) CBC WITH DIFF 2020-04-06 11:47:[address] [facility] XR KUB 2020-04-05 21:34:47 Grant Cheema, [facility] XR KUB 2020-04-05 19:41:00 Grant Cheema, [facility] MAGNESIUM 2020-04-05 09:44:[address] [facility] BASIC METABOLIC PANEL (NA, 2020-04-05 09:44:00 Becky [facility] K, CL, CO2, GLUCOSE, BUN, [facility] CREATININE, CA) CBC WITH DIFF 2020-04-05 09:44:[address] [facility] MAGNESIUM 2020-04-04 10:09:[address] [facility] BASIC METABOLIC PANEL (NA, 2020-04-04 10:09:00 Becky [facility] K, CL, CO2, GLUCOSE, BUN, [facility] CREATININE, CA) CBC WITH DIFF 2020-04-04 10:09:[address] [facility] SURGICAL PATHOLOGY EXAM 2020-04-03 20:13:00 Mayela [facility] LAPAROSCOPIC COLECTOMY 2020-04-03 15:35:00 Mayela [facility] COLONOSCOPY 2020-04-03 15:35:00 Mayela [facility] COLECTOMY 2020-04-03 15:35:00 Phatak, Bia [facility] MAGNESIUM 2020-04-03 09:20:[address] [facility] BASIC METABOLIC PANEL (NA, 2020-04-03 09:20:00 Becky [facility] K, CL, CO2, GLUCOSE, BUN, [facility] CREATININE, CA) CBC WITH DIFF 2020-04-03 09:20:[address] [facility] HB ABO GROUPING 2020-04-02 22:45:00 Hugo Alfaro [facility] MAGNESIUM 2020-04-02 10:22:[address] [facility] BASIC METABOLIC PANEL (NA, 2020-04-02 10:22:00 Becky [facility] K, CL, CO2, GLUCOSE, BUN, [facility] CREATININE, CA) CBC WITH DIFF 2020-04-02 10:22:[address] [facility] COVID-19 (ID NOW RAPID 2020-04-01 23:02:00 Becky [facility] TESTING) [facility] URINALYSIS 2020-03-31 11:25:00 Alex Lopez [facility] CT ABDOMEN PELVIS W 2020-03-31 00:17:06 Alex Lopez [facility] CONTRAST [facility] XR CHEST 1 VW 2020-03-30 22:43:49 Alex Lopez [facility] EKG-12 LEAD 2020-03-30 22:14:24 Doctor Unassigned, [facility] PROTHROMBIN TIME / INR 2020-03-30 22:05:00 Alex Lopez [facility] ACTIVATED PARTIAL THRMPLAS 2020-03-30 22:05:00 [facility]AL PRO-BNP 2020-03-30 22:05:00 Alex Lopez [facility] LIPASE 2020-03-30 22:05:00 Alex Lopez [facility] TROPONIN I 2020-03-30 22:05:00 Colette [facility] HEPATIC FUNCTION PANEL 2020-03-30 22:05:00 Alex Lopez [facility] ([id number]) (ALB,T.PRO,BILI Medical Branch T,BU/BC,ALT,AST,ALK PHOS) BASIC METABOLIC PANEL (NA, 2020-03-30 22:05:00 Alex Lopez [facility] K, CL, CO2, GLUCOSE, BUN, Medica l [place] CREATININE, CA) CBC WITH DIFF 2020-03-30 22:05:00 Lopez, [facility] EKG-12 LEAD 2020-03-30 22:01:44 [facility] 2020-03-30 05:01:00 Doctor Unassigned, [facility] [place] [facility] MAGNESIUM 2020-03-26 09:57:00 Simin, [facility] BASIC METABOLIC PANEL (NA, 2020-03-26 09:57:00 Simin [facility] K, CL, CO2, GLUCOSE, BUN, Medica l [place] CREATININE, CA) CBC WITH DIFF 2020-03-26 09:57:00 Simin [facility] LACTIC ACID WHOLE BLOOD 2020-03-26 04:09:00 Sarah Duval [facility] COVID-19 (ID NOW RAPID 2020-03-26 02:01:00 Bernardo Donnelly [facility] [facility] Medical Branch CT ABDOMEN PELVIS W 2020-03-26 01:17:18 Bernardo Donnelly [facility] CONTRAST Medical Branch PHOSPHORUS 2020-03-26 00:39:00 Simin [facility] MAGNESIUM 2020-03-26 00:39:00 Simin [facility] HEPATIC FUNCTION PANEL 2020-03-26 00:39:00 Bernardo Donnelly [facility] ([id number]) (ALB,T.PRO,BILI Medical Branch T,BU/BC,ALT,AST,ALK PHOS) BASIC METABOLIC PANEL (NA, 2020-03-26 00:39:00 Bernardo Donnelly [facility] K, CL, CO2, GLUCOSE, BUN, Medica l Branch CREATININE, CA) CBC WITH DIFF 2020-03-26 00:39:00 Andrzej [facility] EXTRA TUBE LT. BLUE 2020-03-26 00:39:00 Bernardo Donnelly [facility] HOSPITAL ADMISSION 2020-03-25 05:01:00 Doctor Unassigned, [facility] [place] [facility] PROTHROMBIN TIME / INR 2020-03-03 04:27:00 Ori Persaud [facility] ACTIVATED PARTIAL THRMPLAS 2020-03-03 04:27:00 Zahraa Persaud se [facility] XR ABDOMEN ACUTE SERIES 2020-03-03 02:15:00 Shy [facility] PHOSPHORUS 2020-03-03 01:22:00 Ori Persaud [facility] MAGNESIUM 2020-03-03 01:22:00 Burt Avendaño [facility] HEPATIC FUNCTION PANEL 2020-03-03 01:22:00 Shy [facility] ([id number]) (AL[facility] T,BU/BC,ALT,AST,ALK PHOS) BASIC METABOLIC PANEL (NA, 2020-03-03 01:22:00 Sabi Begum [facility] K, CL, CO2, GLUCOSE, BUN, Medica l Branch CREATININE, CA) CBC WITH DIFFERENTIAL 2020-03-03 01:22:00 Shy [facility] URINALYSIS 2020-03-03 01:22:00 Shy [facility] LACTIC ACID WHOLE BLOOD 2020-03-03 01:22:00 Shy [facility] COVID-19 (ID NOW RAPID 2020-03-03 01:22:00 Shy [facility] TESTING) [facility] GALV/CLC ONLY - URINE DRUG 2020-02-27 20:02:00 [facility] (IMMUNOASSAY) - [facility] COMPREHENSIVE DRUG SCREEN FREE T4 2020-02-27 17:48:00 [facility] THYROID STIMULATING 2020-02-27 17:48:00 [facility] FREE T3 2020-02-27 17:48:00 [facility] CT ABDOMEN PELVIS W 2020-02-26 18:27:28 Alondra Fay [facility] CONTRAST [facility] COVID-19 (ID NOW RAPID 2020-02-26 06:41:00 Begum, [facility] TESTING) Medical Branch XR ABDOMEN ACUTE SERIES 2020-02-26 04:48:30 Begum [facility] LIPASE 2020-02-26 03:35:00 [facility] 2020-02-26 03:35:00 Begum, [facility] ([id number]) ([facility] T,BU/BC,ALT,AST,ALK PHOS) BASIC METABOLIC PANEL (NA, 2020-02-26 03:35:00 Sabi Begum [facility] K, CL, CO2, GLUCOSE, BUN, Medica l Branch CREATININE, CA) CBC WITH DIFFERENTIAL 2020-02-26 03:35:00 Begum, [facility] LACTIC ACID WHOLE BLOOD 2020-02-26 03:35:00 Begum, [facility] EXTRA TUBE LT. BLUE 2020-02-26 03:35:00 Shy [facility] MAGNESIUM 2020-02-03 16:38:00 [facility] BASIC METABOLIC PANEL (NA, 2020-02-03 16:38:00 [facility] K, CL, CO2, GLUCOSE, BUN, Medica l Branch CREATININE, CA) XR KUB 2020-01-31 16:59:00 Helene Griffin [facility] BASIC METABOLIC PANEL (NA, 2020-01-31 06:15:00 Kirill Henson [facility] K, CL, CO2, GLUCOSE, BUN, Medica l Branch CREATININE, CA) CBC WITH DIFFERENTIAL 2020-01-31 06:15:00 [facility]ill [facility] BASIC METABOLIC PANEL (NA, 2020-01-29 10:06:00 Ingram, [facility] K, CL, CO2, GLUCOSE, BUN, Medica l Branch CREATININE, CA) CBC WITH DIFFERENTIAL 2020-01-29 10:06:00 Judith Ingram [facility] COVID-19 (PCR MOLECULAR 2020-01-29 03:56:00 Liz, [facility] TESTING) Medical Branch LACTIC ACID WHOLE BLOOD 2020-01-29 03:55:00 Bernardo Donnelly [facility] EXTRA TUBE LAV 2020-01-29 03:55:00 Liz [facility] EXTRA TUBE LT. BLUE 2020-01-29 03:55:00 Liz [facility] EXTRA TUBE LT. GREEN 2020-01-29 03:55:[address] [facility] URINALYSIS 2020-01-29 01:35:00 Silvia Jurado I [facility] COVID-19 (ID NOW RAPID 2020-01-29 01:32:00 Bernardo Donnelly [facility] TESTING) Medical Branch CT ABDOMEN PELVIS W 2020-01-28 23:53:23 Silvia Jurado I [facility] CONTRAST [facility] LIPASE 2020-01-28 23:19:00 Silvia Jurado I [facility] HEPATIC FUNCTION PANEL 2020-01-28 23:19:00 Silvia Jurado [facility] ([id number]) (ALB,T.PRO,BILI [facility] T,BU/BC,ALT,AST,ALK PHOS) BASIC METABOLIC PANEL (NA, 2020-01-28 23:19:00 Sondra Jurado I [facility] K, CL, CO2, GLUCOSE, BUN, Medica l Branch CREATININE, CA) CBC WITH DIFFERENTIAL 2020-01-28 23:19:00 Silvia Jurado I [facility] HOSPITAL ADMISSION 2020-01-28 05:01:00 Doctor Unassigned, [facility] [place] Medical Branch BASIC METABOLIC PANEL (NA, 2020-01-26 18:06:00 [facility] K, CL, CO2, GLUCOSE, BUN, Medica l Branch CREATININE, CA) MAGNESIUM 2020-01-26 08:17:00 [facility] KUB 2020-01-26 06:00:00 Helene Griffin [facility] Medical Branch PHOSPHORUS 2020-01-25 09:43:00 Liz [facility] COVID-19 (ID NOW RAPID 2020-01-25 04:31:00 Shy [facility] TESTING) Medical [place] LACTIC ACID WHOLE BLOOD 2020-01-25 04:27:00 Shy [facility] CT ABDOMEN PELVIS W 2020-01-25 02:15:22 Shy [facility] CONTRAST [facility] URINALYSIS 2020-01-25 01:05:00 Shy [facility] LIPASE 2020-01-25 00:42:00 Begum, [facility] HEPATIC FUNCTION PANEL 2020-01-25 00:42:00 Shy [facility] ([id number]) (ALB,T.PRO,BILI [facility] T,BU/BC,ALT,AST,ALK PHOS) BASIC METABOLIC PANEL (NA, 2020-01-25 00:42:00 Sabi Begum [facility] K, CL, CO2, GLUCOSE, BUN, Medica l Branch CREATININE, CA) CBC WITH DIFFERENTIAL 2020-01-25 00:42:00 Shy [facility] [id number] 2020-01-09 00:00:00 [facility].[address] [place] [address] 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 Branch Plan of Care Planned Activity Planned Date Details Comments Source Future Scheduled 2029-03-23 Screening for malignant [facility] Test 00:00:00 neoplasm of colon Medical Ce nter (procedure) [code = 660075530] Future Scheduled 2029-03-23 Screening for malignant [facility] Test 00:00:00 neoplasm of colon Medical Ce nter (procedure) [code = 204870901] Future Scheduled 2029-03-23 Screening for malignant [facility] Test 00:00:00 neoplasm of colon Medical Ce nter (procedure) [code = 254363101] Future Scheduled 2022-05-24 IMM Influenza Seasonal [facility] 00:00:00 (>/= 19 yrs) [code = IMM Influenza Seasonal (>/= 19 yrs)] Future Scheduled 2022-04-24 INFLUENZA VACCINE (#1) [facility] 00:[facility]00 [code = INFLUENZA Medical Ce nter VACCINE (#1)] Future Scheduled 2021-08-[address] [facility] Test 00:00:00 (12+) [code = Medical Center DEPRESSION SCREENING (12+)] Future Scheduled 2020-04-24 INFLUENZA VACCINE (#1) [facility] 00:00:00 [code = INFLUENZA Medical Ce nter VACCINE (#1)] Future Scheduled 2020-02-14 SHINGLES VACCINES ([address] [facility] Test 00:00:00 2) [code = SHINGLES Medical Center VACCINES (1 of 2)] Future Scheduled 2020-02-14 Screening for malignant [facility] Test 00:00:00 neoplasm of colon (procedure) [code = 448052875] Future Scheduled 2005 Lipid panel (procedure) [facility] Test 00:00:00 [code = 39841311] Medical Ce nter Future Scheduled 2005 Lipid panel (procedure) [facility] Test 00:00:00 [code = 88566758] Medical Ce nter Future Scheduled 1989 DTAP/TDAP/TD VACCINES [facility] 00:00:00 (1 - Tdap) [code = Medical C enter DTAP/TDAP/TD VACCINES (1 - Tdap)] Future Scheduled 1988-02-14 HEPATITIS C SCREENING [facility] 00:00:00 [code = HEPATITIS C Medical Center SCREENING] Future Scheduled 1970 COVID-19 VACCINE (#1) [facility] 00:00:00 [code = COVID-[address] VACCINE (#1)] Future Scheduled 1970 COVID-19 Vaccine (#1) [facility] 00:00:00 [code = COVID-19 Vaccine (#1)] Future Scheduled 1970 CT Colonography (combo) [facility] Test 00:00:00 [code = CT Colonography [facility] (combo)] Future Scheduled 1970 Screening for malignant [facility] Test 00:00:00 neoplasm of colon Medical Ce nter (procedure) [code = 276894374] Future Scheduled 1970 Screening for malignant [facility] Test 00:00:00 neoplasm of colon Medical Ce nter (procedure) [code = 184152275] Future Scheduled 1970 Sigmoidoscopy [code = [facility] 00:00:00 Sigmoidoscopy] Medical Cente r Future Scheduled 1970 Fluoride Varnish [code [facility] 00:00:00 = Fluoride Varnish] Encounters Start End Encounter Admission Attending Care Care Encounter Source Date/Time Date/Time Type Type Clinicians Facility Department ID 2021-09-13 Inpatient EM Raffaele Levi HCACL HCACL [id number] [facility] 14:59:00 06 [facility] 2021-06-25 Emergency [facility] [id number] Univers 05:25:12 ity of [facility] 2021-06-25 Emergency [facility] [id number] Univers 01:41:18 ity of [facility] 2021-06-24 Emergency [facility] [id number] Univers 22:38:17 ity of [facility] 2021-06-22 Emergency [facility] [id number] Univers 21:40:44 ity of [facility] 2021-06-22 Emergency [facility] [id number] Univers 13:55:03 ity of [facility] 2021-06-22 Emergency [facility] [id number] Univers 05:54:16 ity of [facility] 2021-06-21 Emergency [facility] [id number] Univers 22:33:24 ity of [facility] 2021-06-21 Emergency [facility] [id number] Univers 22:33:24 ity of [facility] 2021-06-21 Emergency [facility] [id number] Univers 22:22:08 ity of [facility] 2021-06-21 Emergency [facility] [id number] Univers 20:04:56 ity of [facility] 2021-06-21 Emergency [facility] [id number] Univers 19:53:56 ity of [facility] 2021-06-21 Emergency [facility] [id number] Univers 19:37:27 ity of [facility] 2021-06-21 Emergency [facility] [id number] Univers 19:36:41 ity of [facility] 2021-06-21 Emergency [facility] [id number] Univers 17:11:26 ity of [facility] 2021-06-21 Emergency [facility] [id number] Univers 16:44:38 ity of [facility] 2021-06-21 Emergency [facility] [id number] Univers 11:19:16 ity of [facility] 2021-06-21 Emergency [facility] [id number] Univers 10:16:06 ity of [facility] 2021-06-21 Emergency [facility] [id number] Univers 06:08:42 ity of [facility] 2021-06-21 Emergency [facility] [id number] Univers 04:43:23 ity of [facility] 2021-06-21 Emergency [facility] [id number] Univers 04:42:49 ity of [facility] 2021-06-20 Emergency X YURIY, [facility] PAKO [id number] Univers 18:31:02 OSMAR ity [facility] 2020-02-23 Inpatient HCAPM LENNY [id number] [facility] 18:42:00 [id number] [facility] 2020-02-17 Inpatient EM Avtar, HCAPM MAS [id number] [facility] 00:22:00 Oladipo 49583 [facility] 2020-02-16 Inpatient HCAPM LENNY [id number] [facility] 23:50:00 20073 [facility] 2020-01-05 Inpatient UR Perea, HCAPM MEDI.01 [id number] [facility] 20:23:00 Mark 70016 [facility] 2019-12-13 Inpatient HCAMN JULIA [id number] [facility] 17:52:00 83442 [facility] 2022-04-14 2022-04-14 Transition MELANIE Valdes 1.2.840.114 [id number] Univers 00:00:00 00:00:00 of Care Miryam TRINIDADY [id number] [id number] [address] Branch 2022-04-09 2022-04-10 Emergency [facility] [id number] Univers 20:38:00 00:14:00 FOLUSHO ity of [facility] 2022-04-09 2022-04-[address] [facility] 1.2.840.114 [id number] Univers 20:38:00 00:14:00 Alvarez OROPEZA 350.1.13.10 ity of [place] 4.2.7.2.686 [facility] [id number] [facility] 084 Branch 2022-04-09 2022-04-09 Transition MELANIE Valdes 1.2.840.114 [id number] Univers 00:00:00 00:00:00 of Care Miryam RECINOS 350.1.13.10 it y of [place] 4.2.7.2.686 [facility] [id number] [facility] 403 Branch 2022-04-02 2022-04-08 Inpatient X [facility] [id number] Univers 11:42:00 12:30:00 rai LORA [facility] 2022-04-02 2022-04-08 [facility] Rekha Sheehan [facility] 1.2.840.11 [id number] Univers 11:42:00 12:30:00 [facility] 350.1.13.10 ity of [facility] Geno Diogo DONN 4.2.7.2.686 [place] [phone] ([facility]) 2022-03-29 2022-03-29 Emergency EM White, HCACL AERS [id number] [facility] 14:26:00 16:45:00 Sabi 28 [facility] 2022-03-29 2022-03-29 Emergency EM White, HCACL HCACL [id number] [facility] 14:26:00 16:45:00 Sabi [address] [facility] 2022-03-25 2022-03-26 Inpatient E RICHARD [facility] MED 7503 [facility] 13:38:00 10:16:00 , YESSI 2022-03-15 2022-03-18 Emergency E RADHA [facility] MED [id number] [facility] 13:36:00 18:59:00 JULIO 2022-03-13 2022-03-13 Emergency [facility] [id number] [place]ayson 15:33:00 20:25:00 [facility] 2022-03-13 2022-03-13 Emergency [facility] MED [id number] [place] 15:33:00 20:25:00 [facility] 2022-03-13 2022-03-13 [facility]patient [facility] [id number] Lynne 00:00:00 00:00:00 [facility] 2022-03-06 2022-03-09 Inpatient ER LEONIDAS JOYNER [facility] Emergency [id number] [facility] 12:16:00 12:55:00 2022-03-06 2022-03-09 [facility] [id number] 12:16:00 12:55:00 Encounter Norma Montalvo [facility] Shiela, Pao Ramos [facility] Leonidas Odell [facility] 2022-03-06 2022-03-06 Outpatient [facility] [id number] [facility] 00:00:00 23:59:00 [facility] 2022-03-06 2022-03-[address] [facility] [id number] 00:00:00 00:00:00 Only [facility] 2022-03-06 2022-03-06 Travel [facility] [id number] [facility] 00:[facility]:00 00:00:00 [facility] 2022-02-18 2022-02-20 Emergency Mitzi Carbajal [facility] [id number] Lynne 13:58:00 11:55:00 [facility] Fannie Chavez 2022-02-18 2022-02-20 Outpatient [facility] [id number] [place] 13:58:00 11:55:00 [facility] 2022-02-18 2022-02-18 Emergency [facility] [id number] Lynne 15:19:05 15:23:18 [facility] 2022-02-18 2022-02-18 Outpatient 1 [facility] [id number] [place] 13:58:00 13:58:00 [facility] 2022-02-18 2022-02-18 Outpatient DENIZ [facility] [id number] [place] 00:00:00 00:00:00 , OSCAR boss 2022-02-07 2022-02-11 [facility] [id number] [place] 13:40:00 13:22:00 Encounter [facility] 2022-02-07 2022-02-11 Inpatient [facility] [id number] [place] 13:40:00 13:22:00 [facility] 2022-02-07 2022-02-07 Outpatient 1 DAILY ISLAS [facility] [id number] [place] 13:40:00 13:40:00 [facility] 2022-01-30 2022-01-30 Emergency [facility] [id number] [facility] 17:02:00 18:29:00 Dwain 53 [facility] 2022-01-30 2022-01-30 Emergency [facility] [id number] [facility] 17:02:00 18:29:00 Dwain [id number] [facility] 2022-01-22 2022-01-22 Emergency [facility] [id number] [place] 17:24:00 20:39:00 [facility] 2022-01-22 2022-01-22 Emergency [facility] [id number] [place] 17:24:00 20:39:00 [facility] 2022-01-16 2022-01-21 Emergency Raymon Martin [facility] [id number] [place] 11:04:00 18:08:00 Karin Bassett [facility] Sushil Loera Parth P 2022-01-16 2022-01-21 Outpatient [facility] [id number] [place] 11:04:00 18:08:00 [facility] 2022-01-19 2022-01-19 Outpatient [facility] [id number] [place] 12:34:08 13:29:31 [facility] 2022-01-16 2022-01-16 Outpatient [facility] [id number] [place] 19:42:28 20:01:28 [facility] 2022-01-16 2022-01-16 Outpatient 1 DANYELLE, [facility] [id number] [place] 11:04:00 11:04:00 KARIN boss 2022-01-10 2022-01-11 Emergency Bert Reed [facility] [id number] [place] 10:58:00 11:20:00 [facility] Merissa Richadrs 2022-01-10 2022-01-11 Outpatient [facility] [id number] [place] [address] 10:58:00 11:20:[address] [facility] 2022-01-10 2022-01-10 Outpatient 1 [facility] [id number] [place] 10:58:00 10:58:[address] [facility] 2022-01-08 2022-01-09 Emergency [facility] [id number] [place] 17:57:00 02:50:00 [facility] 2022-01-08 2022-01-09 Emergency [facility] [id number] [place] 17:57:00 02:50:00 [facility] 2022-01-08 2022-01-08 Emergency [facility] [id number] [place] 21:40:34 21:50:19 [facility] 2021-09-23 2021-09-23 Emergency EM Raffaele Levi [facility] AERS [id number] [facility] 19:35:00 21:10:00 [facility] 2021-09-13 2021-09-13 Emergency X RACHEL, [facility] ERT [id number] Univers 21:20:00 22:36:00 MICKEY atwood [facility] 2021-09-13 2021-09-13 Emergency Harkey, [facility] [id number] Univers 21:20:00 22:36:00 [facility] 350.1.13.10 it hiram of [facility] 4.2.7.2.686 [facility] [id number] [address] ([facility]) 2021-09-13 2021-09-13 Emergency EM Raffaele Levi [facility] AERS [id number] [facility] 14:57:00 16:37:00 [facility] 2021-09-12 2021-09-12 Emergency X MORRICAL, [facility] ERT [id number] Univers 14:25:00 17:51:00 DWAIN ity of [facility] 2021-09-12 2021-09-12 Emergency Morrical, TRAUMA 1.2.840.114 [id number] Univers 14:25:00 17:51:00 Dwain [facility] 350.1.13.10 [id number] [address] 2021-09-12 2021-09-12 Emergency [facility] ERT [id number] Univers 06:20:00 10:10:00 CONSTANTIN ity [facility] 2021-09-12 2021-09-12 Emergency Alona Carty TRAUMA 1.2.840 .114 [id number] Univers 06:20:00 10:10:00 Constantin Concepcion [place] 350.1.13.10 [place] [id number] [address] 2021-09-08 2021-09-09 Emergency [facility] ERT [id number] Univers 23:01:00 01:30:00 SEBASTIAN ity of [facility] 2021-09-08 2021-09-09 Emergency Pacheco, TRAUMA [id number] Univers 23:01:00 01:30:00 Sebastian [facility] 350.1.13.10 [place] [id number] [address] 2021-09-07 2021-09-07 Emergency [facility] ERT [id number] Univers 19:24:00 23:44:00 SEBASTIAN ity of [facility] 2021-09-07 2021-09-07 Emergency Pacheco, TRAUMA [id number] Univers 19:24:00 23:44:00 Sebastian [facility] 350.1.13.10 [place] [id number] [address] 2021-09-06 2021-09-06 Emergency [facility] ERT [id number] Univers 15:35:00 17:52:00 SEBASTIAN ity of [facility] 2021-09-06 2021-09-06 Emergency Pacheco, TRAUMA [id number] Univers 15:35:00 17:52:00 Sebastian L CENTER 350.1.13.10 [place] [id number] [facility] 014 Branch 2021-09-06 2021-09-06 Transition AMANDA VallejoEddie 1.2.840.114 [id number] Univers 00:00:00 00:00:00 of Care Emili RECINOS 350.1.13.10 [place] [id number] [facility] 403 Branch 2021-08-30 2021-09-05 Inpatient X [facility] PAKO [id number] Univers 16:53:00 16:00:00 ity of [facility] 2021-08-30 2021-09-05 [facility] Gayatri Gu 1 .2.840.114 [id number] Univers 16:53:00 16:00:00 Encounter Andrea, Sophia Clare [place] 350.1 .13.10 ity of [facility] 4.2.7.2.686 [facility] [id number] Medical 097 Branch 2021-09-03 2021-09-03 Surgery [facility] MARGARITA 1.2.840.114 [id number] Univers 07:15:00 10:04:00 [place] 350.1.13.10 it y of [facility] 4.2.7.2.686 Javi as [id number] [facility] 103 Branch 2021-08-29 2021-08-29 Emergency X GEOVANNA, [facility] ERT [id number] Univers 17:15:00 20:03:00 FOLNANNETTEO ity of [facility] 2021-08-29 2021-08-29 Emergency Ibikunle, TRAUMA 1.2.840.114 [id number] Univers 17:15:00 20:03:00 Alvarez F CENTER 350.1.13.10 [place] [id number] [facility] 014 Branch 2021-07-29 2021-08-05 Inpatient X MAYELA [facility] PAKO [id number] Univers 20:15:00 07:43:00 ity of [facility] 2021-07-29 2021-08-05 Hospital NegritaJonah 1.2.840.1 [id number] Univers 20:15:00 07:43:00 Encounter Karin Myers 350.1.13.1 0 ity of [facility] 4.2.7.2.686 [place] [id number] [facility] 091 Branch 2021-07-29 2021-07-29 Transition MELANIE Vallejo 1.2.840.114 [id number] Univers 00:00:00 00:00:00 of Care Emili TRINIDADY 350.1.13.10 ity of [place] [id number] [facility] 403 Branch 2021-07-27 2021-07-27 Emergency EM Koussayer, HCAMN JULIA [id number]- [facility] 10:15:00 12:36:00 Tarek [id number] [facility] 2021-07-27 2021-07-27 Emergency EM Koussayer, HCAMN HCAMN [id number] [facility] 10:15:00 12:36:00 Tarek 17 [facility] 2021-07-23 2021-07-26 [facility] [id number] Univers 00:39:00 14:50:00 ity of [facility] 2021-07-23 2021-07-26 Hospital Sabi Schultz 1.2.840 .114 [id number] Univers 00:39:00 14:50:00 Encounter Mayela [facility] [place] 350.1.13.10 ity of [facility] 4.2.7.2.686 Javi as [phone] [facility] 093 Branch 2021-07-22 2021-07-22 Emergency EM Marcelina, MASONCL AERS [id number] [facility] 04:25:00 08:20:00 Gabriella 07961 [facility] 2021-06-27 2021-06-27 Emergency EM Bridgett, HCACL AERS [id number] [facility] 15:31:00 17:37:00 Sabi 69725 [facility] 2021-06-25 2021-06-25 Orders Doctor BERNARDO 1.2.840.114 [id number] Univers 00:00:00 00:00:00 Only Unassigned, [place] 350.1.13.10 ity of [facility] 4.2.7.2.686 Javi as [phone] [facility] 009 Branch 2021-05-31 2021-06-04 Emergency Willie Garrett [facility] 1.2.840.1 14 [id number] Univers 17:10:00 16:38:00 Clementine [facility] 350.1.13.10 ity of Sabi Gann [place] 4.2.7.2.686 [place] Tamika Lyle Bhatt [phone] [address] ([facility]) 2021-05-20 2021-05-21 Emergency Andrzej Bernardo [facility] 1.2.840.114 [id number] Univers 14:29:00 17:10:00 NaylorScott silva Health 350.1.13.10 [place] [phone] [facility] [address] ([facility]) 2021-05-10 2021-05-10 Transition Melanie Vallejo 1.2.840.114 [id number] Univers 00:00:00 00:00:00 of Care Emili Recinos 350.1.13.10 ity of [place] [phone] [facility] 403 [address] 2021-05-07 2021-05-09 Hospital Alona Pérez [facility] 1.2.840.11 4 [id number] Univers 19:23:00 15:26:00 Encounter Diogo [facility] 350.1.13. 10 ity of Abad Watson [place] 4.2.7.2.686 [place]t [phone] [facility] [address] ([facility]) 2021-04-28 2021-05-01 [facility]patient [facility] [id number] [facility] 21:05:00 14:18:00 Marecllo 81850 [facility] 2020-09-26 2020-09-[address] [facility] 1.2.822.447 [id number] Univers 16:56:00 23:00:00 Mariaelena Oropeza 350.1.13.10 i ty of [place] 4.2.7.2.686 [place] [facility] [id number] [facility] 084 Branch 2020-08-22 2020-08-24 Emergency Funmilayo Pinzon [facility] 1.2.8 40.114 [id number] Univers 15:31:00 14:20:00 Bart Sweeney 350.1.13.10 ity of [place] 4.2.7.2.686 [facility] [phone] [facility] [address] ([facility]) 2020-07-09 2020-07-[address] [facility] 1.2.840.114 [id number] Univers 16:23:00 19:43:00 , Juan M Kandi 350.1.13.10 ity of Clear 4.2.7.2.686 [facility] [phone] [facility] 014 Branch ([facility]) 2020-06-15 2020-06-15 Patient Saira Goodman Melanie 1.2.840.114 [id number] Univers 00:00:00 00:00:00 Outreach E Recinos 350.1.13.10 i ty of [place].2.7.2.[place] [id number] [facility] [address] [place] 2020-06-12 2020-06-12 Patient Saira Goodman Melanie 1.2.840.114 [id number] Univers 00:00:00 00:00:00 Outreach E Recinos 350.1.13.10 i ty of [place].7.2.[place] [phone] [facility] [address] [place] 2020-06-08 2020-06-08 Patient Melanie Emanuel 1.2.840.114 [id number] Univers 00:00:00 00:00:00 Outreach Mela Trinidady 350.1.13.10 ity of [place] 4.2.7.2.[place] [id number] [facility] [address] 2020-06-07 2020-06-07 Patient Saira Goodman 1.2.840.114 [id number] Univers 00:00:00 00:00:00 Outreach E Recinos 350.1.13.10 i ty of [place] 4.2.7.2.686 [place] [id number] [facility] [address] 2020-06-05 2020-06-05 [facility] 1.2.840.114 [id number] Univers 06:47:00 10:55:00 More Oropeza 350.1.13.10 ity of [place] 4.2.7.2.686 [place] [id number] [facility] 084 [address] 2020-06-04 2020-06-04 [facility] 1.2.678.487 [id number] Univers 10:36:00 13:38:00 [facility] 350.1.13.10 it y [place]2.[place].2.[place] [phone] [facility] 014 [address] ([facility]) 2020-06-04 2020-06-04 Patient Saira Goodman 1.2.840.114 [id number] Univers 00:00:00 00:00:00 Outreach E Recinos 350.1.13.10 i ty [place] 4.2.7.2.[place] [phone] [place] [address] Branch 2020-06-04 2020-06-04 Patient Jenae Melanie 1.2.840.114 [id number] Univers 00:00:00 00:00:00 Outreach Mela Trinidady 350.1.13.10 ity of [place] 4.2.7.2.686 [place] [phone] [place] [address] Branch 2020-06-01 2020-06-01 Transition Melanie Vallejo 1.2.840.114 [id number] Univers 00:00:00 00:00:00 of Care Emili Trinidady 350.1.13.10 ity of [place].2.[place] [id number] [address] 2020-05-22 2020-05-31 Hospital Alex Lopez 1.2.840.11 4 [id number] Univers 14:42:00 18:40:00 Encounter Bia Pedro 350.1.13.10 ity of [facility] 4.2.7.2.686 Javi as [phone] [address] 2020-05-31 2020-05-31 Patient Saira Goodman 1.2.840.114 [id number] Univers 00:00:00 00:00:00 Outreach E Recinos 350.1.13.10 i ty [place].2.[place] [id number] [address] 2020-05-23 2020-05-23 Outpatient R [facility] [id number] -[id number] Univers 10:00:00 10:00:00 [id number] ity of [facility] 2020-05-23 2020-05-23 Patient Saira Goodman 1.2.840.114 [id number] Univers 00:00:00 00:00:00 Outreach E Recinos 350.1.13.10 i ty [place] 4.[place].7.2.[place] [phone] [address] 2020-05-23 2020-05-23 Patient Saira Goodman 1.2.840.114 [id number] Univers 00:00:00 00:00:00 Outreach E Recinos 350.1.13.10 i ty [place].2.[place] [id number] [address] 2020-05-23 2020-05-23 Patient Melanie Emanuel 1.2.840.114 [id number] Univers 00:00:00 00:00:00 Outreach Mela Trinidady 350.1.13.10 ity of [place] 4.2.7.2.[place] [phone] [address] 2020-05-21 2020-05-21 [facility] 1.2.501.015 [id number] Univers 20:52:00 23:41:00 [facility] 350.1.13.10 it y [place].2.[place].2.[place] [phone] [address] ([facility]) 2020-05-20 2020-05-20 Emergency Unknown, [place] 1.2.840.114 [id number] Univers 07:04:00 15:13:00 Attending CENTER 350.1.13.10 ity of [place].2.[place] [id number] [address] 2020-05-19 2020-05-20 [facility] 1.2.840.114 [id number] Univers 21:29:00 06:12:00 [facility] 350.1.13.10 it y [place] 4.2.[place].2.[place] [phone] [address] ([facility]) 2020-05-18 2020-05-18 Patient Saira Goodmaneddie 1.2.840.114 [id number] Univers 10:18:59 11:28:59 Outreach E Recinos 350.1.13.10 i ty [place] 4.2.7.2.[place] [phone] [address] 2020-05-18 2020-05-18 Outpatient R [facility] [id number] Univers 09:30:00 09:30:00 [id number] ity of [facility] 2020-05-18 2020-05-18 Patient Melanie Emanuel 1.2.840.114 [id number] Univers 00:00:00 00:00:00 Outreach Mela Trinidady 350.1.13.10 ity of [place] 4[place]2.[place] [id number] [address] 2020-05-17 2020-05-17 Outpatient R [facility] [id number] -[id number] Univers 10:00:00 10:00:00 [id number] ity of [facility] 2020-05-17 2020-05-17 Patient Saira Goodman 1.2.840.114 [id number] Univers 00:00:00 00:00:00 Outreach Heidi Recinos 350.1.13.10 i ty [place].2.[place] [id number] [address] 2020-05-17 2020-05-17 Patient Melanie Emanuel 1.2.840.114 [id number] Univers 00:00:00 00:00:00 Outreach Mela Arvizu Recinos 350.1.13.10 ity of [place].2.[place] [id number] [address] 2020-05-15 2020-05-15 Patient Melanie Emanuel 1.2.840.114 [id number] Univers 00:00:00 00:00:00 Outreach Mela Arvizu Recinos 350.1.13.10 ity of [place].2.[place] [phone] [address] 2020-05-14 2020-05-14 Transition Melanie Vallejo 1.2.840.114 [id number] Univers 00:00:00 00:00:00 of Care Emili Recinos 350.1.13.10 ity of [place]2.[place] [id number] [address] 2020-05-04 2020-05-12 [facility] Lora Hall 1.2. 840.114 [id number] Univers 21:09:00 14:03:00 Encounter Carol Ann Jason 350.1.13.10 ity of [facility] 4.2.7.2.686 Javi as [phone] [address] 2020-05-10 2020-05-10 Patient Saira Goodman Melanie 1.2.840.114 78 [id number] Univers 00:00:00 00:00:00 Outreach E Recinos 350.1.13.10 i ty [place] [id number] [address] 2020-05-09 2020-05-09 Transition Melanie Vallejo 1.2.840.114 [id number] Univers 00:00:00 00:00:00 of Care Emili Recinos 350.1.13.10 ity of [place] 4[place].2.[place] [id number] [address] 2020-05-08 2020-05-08 Patient Saira Goodman Melanie 1.2.840.114 [id number] Univers 00:00:00 00:00:00 Outreach E Recinos 350.1.13.10 i ty [place] 4.2.7.2.[place] [id number] [facility] [address] 2020-05-02 2020-05-03 [facility] 1.2.292.791 [id number] Univers 23:37:00 01:53:00 Joel S [place] 350.1.13.10 ity of [place] 4.2.7.2.686 [place] [id number] [facility] 084 [address] 2020-05-03 2020-05-03 Patient Saira Goodmaneddie 1.2.840.114 [id number] Univers 00:00:00 00:00:00 Outreach E Recinos 350.1.13.10 i ty of [place] 4.2.7.2.[place] [phone] [facility] [address] 2020-05-03 2020-05-03 Transition Melanie Vallejo 1.2.840.114 [id number] Univers 00:00:00 00:00:00 of Care Emili Recinos 350.1.13.10 ity of [place] 4.2.7.2.[place] [id number] [facility] [address] 2020-03-30 2020-05-02 Hospital Alex Lopez 1.2.840.11 4 [id number] Univers 16:55:00 16:45:00 Encounter Diogo Keane 350.1.13. 10 ity of [facility] 4.2.7.2.686 [place] [id number] [facility] 091 [address] 2020-04-06 2020-04-06 Anesthesia Adrián Dana Avila 1.2.8 40.114 [id number] Univers 09:10:00 11:29:00 Cynthia Herring 350.1.1 3.10 ity of [facility] 4.2.7.2.686 Javi as [id number] [facility] 103 [address] 2020-03-29 2020-03-29 Transition Melanie Vallejo 1.2.840.114 [id number] Univers 00:00:00 00:00:00 of Care Emili Recinos 350.1.13.10 ity of [place].7.2.[place] [id number] [facility] [address] 2020-03-25 2020-03-28 Hospital Bernardo Donnelly [facility] 1.2.840.114 [id number] Univers 19:12:00 18:43:00 Encounter [facility] 350.1.13.1 0 it[place].2.[place] [id number] [facility] [address] ([facility]) 2020-03-07 2020-03-07 Transition Melanie Vallejo 1.2.840.114 [id number] Univers 00:00:00 00:00:00 of Care Emili Recinos 350.1.13.10 ity [place].2.[place] [id number] [address] 2020-03-02 2020-03-05 [facility] Sabi Begum [facility] 1.2.840.11 [id number] Univers 19:53:34 17:23:00 Encounter Eliu [facility] 350.1.13.10 ity of SiminSarah de leon [place] 4.2.7.2.686 [place] [phone] [facility] [address] ([facility]) 2020-02-29 2020-02-29 Transition Melanie Vallejo 1.2.840.114 [id number] Univers 00:00:00 00:00:00 of Care Emili Recinos 350.1.13.10 ity of [place] 4.2.7.2.[place] [id number] [facility] [address] 2020-02-26 2020-02-27 Hospital Juventino Mccabee 1.2.840.11 4 [id number] Univers 04:55:41 19:20:00 Encounter Bia Pedro 350.1.13.10 ity of Hospital 4.2.7.2.686 Javi as [phone] [facility] 0[address] 2020-02-27 2020-02-27 Patient Saira Goodman 1.2.840.114 [id number] Univers 00:00:00 00:00:00 Outreach E Recinos 350.1.13.10 i ty [place] 4.2.7.2.[place] [id number] [facility] [address] 2020-02-25 2020-02-26 Emergency Begum, [facility] 1.2.807.620 [id number] Univers 21:25:58 03:55:00 [facility] 350.1.13.10 it y [place] [id number] [facility] 014 [address] ([facility]) 2020-02-24 2020-02-24 Outpatient Eliazar, HCACL LABO [id number] [facility] 07:51:00 07:51:00 Mark [address] [facility] 2020-02-18 2020-02-18 Outpatient Avtar, HCACL LABO [id number] [facility] 00:26:00 00:26:00 Oladipo [address] [facility] 2020-02-07 2020-02-07 Transition Melanie Vallejo 1.2.840.114 [id number] Univers 00:00:00 00:00:00 of Care Emili Recinos 350.1.13.10 ity [place].2.[place] [id number] [address] 2020-02-07 2020-02-07 Transition Melanie Vallejo 1.2.840.114 [id number] [id number] 00:00:00 00:00:00 of Care Emili Recinos 350.1.13.10 [place] 4.2.7.2.686 [id number] [facility] 2020-01-28 2020-02-05 Inpatient X [facility] [id number] Univers 18:12:56 15:12:00 RADHESHYAM ity of [facility] 2020-01-28 2020-02-05 Hospital Bernardo Donnelly [facility] 1.2.840.114 [id number] Univers 18:12:56 15:12:00 Encounter [facility] 350.1.13.10 ity of [place] 4.2.7.2.686 [place] [phone] [place] [address] [address] ([facility]) 2020-01-28 2020-02-05 Hospital Bernardo Donnelly [facility] 1.2.840.114 [id number] 18:12:56 15:12:00 Encounter Luis [facility] 350.1.13.10 David Du[place]am [place] 4.2.7.2.686 [place] [phone] [place] [address] ([facility]) 2020-01-24 2020-01-26 Emergency Sabi Begum [facility] 1.2.840.1 14 [id number] Univers 18:46:34 19:35:00 Liz, [facility] 350.1.13.10 [facility] 4.2.7.2.686 [facility] [phone] [place] [address] [address] ([facility]) 2020-01-24 2020-01-26 Outpatient X [facility] [id number] Univers 18:46:34 19:35:00 RADHESHYAM ity of [facility] 2020-01-24 2020-01-26 Emergency BegumSabi simons [facility] 1.2.840.1 14 [id number] 18:46:34 19:35:00 Luis [facility] 350.1.13.10 Felix Duvalhyam [place] 4.2.7.2.686 [place] [phone] [place] [address] ([facility]) 2020-01-05 2020-01-05 Outpatient Perea, MASON OUTD [id number] [facility] 23:52:00 23:52:00 [facility] [address] [facility] 2019-12-28 2019-12-28 Orders Doctor BERNARDO 1.2.840.114 [id number] Univers 00:00:00 00:00:00 Only Unassigned, [place] 350.1.13.10 ity of [place] [facility] 4.2.7.2.686 Javi as [phone] [facility] [address] 2019-12-28 2019-12-28 Orders Doctor BERNARDO 1.2.840.114 [id number] 00:00:00 00:00:00 Only Unassigned, [place] 350.1.13.10 [facility] 4.2.7.2.686 [id number] 009 2019-12-12 2019-12-12 Emergency [place], [place] 1.2.671.571 [id number] [facility] 21:02:30 23:20:00 [facility] 350.1.13.10 i ty of 4.2.7.2.686 Ara lopez [phone] [address] 2019-12-12 2019-12-12 Emergency [place], [place] 1.2.667.456 [id number] 21:02:30 23:20:00 [facility] 350.1.13.10 4.2.7.2.686 [id number] 014 2017-11-02 2017-11-02 Emergency E [facility] MED [id number] [address] 08:33:00 08:33:00 [facility] 2017-08-05 2017-08-05 Outpatient [facility] [id number] [place] 00:00:00 00:00:00 [facility] 2017-07-28 2017-07-28 Outpatient [facility] [id number] [place] 00:00:00 00:00:00 [facility] 2017-06-24 2017-06-24 Outpatient [facility] [id number] [place] 00:00:00 00:00:00 [facility] 2017-06-22 2017-06-22 Emergency [facility] [id number] [place] 21:37:29 21:37:29 [facility] 2017-06-22 2017-06-22 Emergency [facility] MED [id number] [place] 21:06:00 21:06:00 [facility] 2017-06-22 2017-06-22 Outpatient [facility] [id number] [place] 10:02:31 10:02:31 [facility] 2017-06-09 2017-06-09 Outpatient [facility] [id number] [place] 00:00:00 00:00:00 [facility] 2017-06-09 2017-06-09 Outpatient [facility] [id number] [place] 00:00:00 00:00:00 [facility] 2017-05-08 2017-05-08 Emergency [facility] MED [id number] [place] 01:04:44 01:04:44 [facility] 2017-05-05 2017-05-05 Emergency E [facility] MED [id number] [address] 08:11:00 08:11:00 [facility] 2017-04-15 2017-04-15 Emergency E [facility] MED [id number] [address] 09:53:00 09:53:00 [facility] 2017-04-14 2017-04-14 Outpatient [facility] [id number] [place] 13:31:02 13:31:02 Health Results Test Description Test Time Test Comments Results Result Comments Source CBC WITH DIFF 2022-04-10 05:06:34 Test Item Value Reference Range Interpretation Comme nts WBC (test code = 6690-2) See_Comment [A utomated message] The system which ge nerated this result transmit dain reference range: 4.20 - 1 0.70 10*3/?L. The reference r meredith was not used to interpr et this result as normal/abnor mal. RBC (test code = 789-8) See_Comment L [Au tomated message] The system which ge [...] 31.6 g/dL 31.2-35 RDW-SD (test code = 16826-6) 56.7 fL 38.5-51.6 H RDW-CV (test code = 788-0) 17.4 % 12.1-15.4 H PLT (test code = 777-3) See_Comment [Au tomated message] The system which ge nerated this result transmit dain reference range: 150 - 32 8 10*3/?L. The reference range was not used to interpret th is result as normal/abnormal . MPV (test code = 93317-5) 9.5 fL 9.8-13 L NRBC/100 WBC (test code = See_Comment [ Automated message] The 1181954394) system which ge nerated this result transmit dain reference range: 0.0 - 10 .0 /100 WBCs. The reference r meredith was not used to interpr et this result as normal/abnor mal. NRBC x10^3 (test code = See_Comment [Au tomated message] The 0947734877) system which ge nerated this result transmit dain reference range: 10*3/?L. The reference range was not u sed to interpret this result as normal/abnormal . SEG % (test code = 44254-7) 56 % 33-76 LYMPH % (test code = 28 % 14-54 49869-6) MONO % (test code = 64327-9) 12 % 0-4 H EOS % (test code = 04445-7) 4 % 0-3 H ANC (test code = 753-4) 4.72 10*3/uL 1.99-6.95 PLT ESTIMATE (test code = Normal Normal 9317-9) Lab Interpretation (test Abnormal code = 27866-7) [facility]-10 04:19:15 Test Item Value Reference Range Interpretation Comments NA (test code = 137 mmol/L 135-145 4290952309) K (test code = 4.6 mmol/L 3.5-5 1784053887) CL (test code = 108 mmol/L 98-108 8422739816) CO2 TOTAL (test code = 22 mmol/L 23-31 L 7872886377) AGAP (test code = 2-16 0375605773) BUN (test code = 16 mg/dL 7-23 4182035864) GLUCOSE (test code = 96 mg/dL 70-110 4238000412) CREATININE (test code = 1.35 mg/dL 0.6-1.25 H 4537623861) TOTAL BILI (test code = 0.4 mg/dL 0.1-1.3 0120527131) CALCIUM (test code = 9.1 mg/dL 8.6-10.6 0707422423) T PROTEIN (test code = 5.5 g/dL 6.3-8.2 L 8448366279) ALBUMIN (test code = 3.9 g/dL 3.5-5 9126329043) ALK PHOS (test code = 58 U/L 34-122 1044031845) ALTv (test code = 41 U/L 5-50 1742-6) AST(SGOT) (test code = 42 U/L 13-40 H 5957562882) eGFR (test code = mL/min/1.73m2 5892755981) GILBERTO (test code = GILBERTO) Association of [...] tests). Lab Interpretation Abnormal (test code = 01860-1) [facility] 03:33:31 Test Item Value Reference Range Interpretation Comments LIPASE (test code = 2088264231) 90 U/L 0-220 Lab Interpretation (test code = Normal 47542-7) [facility] 12:00:33 Test Item Value Reference Range Interpretation Comments MAGNESIUM (test code = 1778417767) 1.5 mg/dL 1.7-2.4 L Lab Interpretation (test code = Abnormal 69340-8) [facility] (NA, K, CL, CO2, GLUCOSE, BUN, CREATININE, CA)2022-04-08 11:12:32 Test Item Value Reference Range Interpretation Comments NA (test code = 136 mmol/L 135-145 4330782419) K (test code = 4.1 mmol/L 3.5-5 1503990246) CL (test code = 108 mmol/L 98-108 0932516592) CO2 TOTAL (test code = 25 mmol/L 23-31 6608157101) AGAP (test code = 2-16 0360191117) BUN (test code = 10 mg/dL 7-23 7335989129) GLUCOSE (test code = 82 mg/dL 70-110 7107040412) CREATININE (test code = 1.10 mg/dL 0.6-1.25 5637386444) CALCIUM (test code = 8.3 mg/dL 8.6-10.6 L 6769813958) eGFR (test code = mL/min/1.73m2 5468584188) GILBERTO (test code = GILBERTO) Association of [...] tests). Lab Interpretation Abnormal (test code = 64455-6) [facility]22-[facility]-16 11:12:32 Test Item Value Reference Range Interpretation Comments PHOSPHORUS (test code = 2788049206) 2.5 mg/dL 2.5-5 Lab Interpretation (test code = Normal 30769-7) [facility] [id number] 10:47:27 Test Item Value Reference Range Interpretation [...] (test code = 54.4 fL 38.5-51.6 H 57283-9) RDW-CV (test code = 16.9 % 12.1-15.4 H 788-0) PLT (test code = See_Comment [Automated 777-3) message] The sy stem which generated this result transmitted reference range : 150 - 328 10*3/ ?L. The reference r meredith was not used to interpret this result as normal/abnormal . MPV (test code = 9.7 fL 9.8-13 L 86247-2) NRBC/100 WBC (test See_Comment [Automat ed code = 1290182543) message] The system which generated this result transmitted reference range : 0.0 - 10.0 /100 WBCs. The refer ence range was not u sed to interpret th is result as normal/abnormal . NRBC x10^3 (test code See_Comment [Auto mated = [id number]) message] The s ystem which generated this result transmitted reference range : 10*3/?L. The reference range was not used to interpret this result as normal/abnormal . GRAN MAT (NEUT) % 54.7 % (test code = 770-8) IMM GRAN % (test code 0.40 % = 7105237434) LYMPH % (test code = 33.8 % 736-9) MONO % (test code = 8.7 % 5905-5) EOS % (test code = 2.0 % 713-8) BASO % (test code = 0.4 % 706-2) GRAN MAT x10^3(ANC) 2.95 10*3/uL 1.99-6.95 (test code = 7640086459) IMM GRAN x10^3 (test 0-0.06 code = 2969759191) LYMPH x10^3 (test code 1.82 10*3/uL 1.09-3.23 = 731-0) MONO x10^3 (test code 0.47 10*3/uL 0.36-1.02 = 742-7) EOS x10^3 (test code = 0.11 10*3/uL 0.06-0.53 711-2) BASO x10^3 (test code 0.01-0.09 = 704-7) Lab Interpretation Abnormal (test code = 37503-0) [facility] METABOLIC PANEL (NA, K, CL, CO2, GLUCOSE, BUN, CREATININE, CA)2022-04-06 09:47:17 Test Item Value Reference Range Interpretation Comments NA (test code = 134 mmol/L 135-145 L 1203528766) K (test code = 4.2 mmol/L 3.5-5 Slight 8598302953) hemolysis CL (test code = 114 mmol/L 98-108 H 2358096394) CO2 TOTAL (test code 16 mmol/L 23-31 L = 1657174470) AGAP (test code = 2-16 5892143388) BUN (test code = 16 mg/dL 7-23 Slight 1653130851) hemolysis GLUCOSE (test code = 79 mg/dL 70-110 7183087522) CREATININE (test code 1.00 mg/dL 0.6-1.25 = 2739408195) CALCIUM (test code = 7.5 mg/dL 8.6-10.6 L 5175642562) eGFR (test code = mL/min/1.73m2 5270924391) GILBERTO (test code = GILBERTO) Association of [...] tests). Lab Interpretation Abnormal (test code = 17307-7) [facility] Test Item Value Reference Range Interpretation Comments MAGNESIUM (test code = 6828773694) 1.2 mg/dL 1.7-2.4 L Lab Interpretation (test code = Abnormal 02781-2) [facility] Vziyv2977-98-15 09:16:49 Test Item Value Reference Range Interpretation Comments LACTIC ACID (test code = 1.35 mmol/L 0.5-2.2 7427520398) Lab Interpretation (test code = Normal 15690-2) [facility] [facility] [id number] 09:13:32 Test Item Value Reference Range Interpretation [...] (test code = 52.4 fL 38.5-51.6 H 56397-9) RDW-CV (test code = 16.6 % 12.1-15.4 H 788-0) PLT (test code = See_Comment [Automated 777-3) message] The sy stem which generated this result transmitted reference range : 150 - 328 10*3/ ?L. The reference r meredith was not used to interpret this result as normal/abnormal . MPV (test code = 10.0 fL 9.8-13 90823-8) NRBC/100 WBC (test See_Comment [Automat ed code = 8885966197) message] The system which generated this result transmitted reference range : 0.0 - 10.0 /100 WBCs. The refer ence range was not u sed to interpret th is result as normal/abnormal . NRBC x10^3 (test code See_Comment [Auto mated = 9210293456) message] The s ystem which generated this result transmitted reference range : 10*3/?L. The reference range was not used to interpret this result as normal/abnormal . GRAN MAT (NEUT) % 48.6 % (test code = 770-8) IMM GRAN % (test code 0.20 % = 7593599899) LYMPH % (test code = 39.4 % 736-9) MONO % (test code = 9.3 % 5905-5) EOS % (test code = 1.9 % 713-8) BASO % (test code = 0.6 % 706-2) GRAN MAT x10^3(ANC) 2.36 10*3/uL 1.99-6.95 (test code = 8506831981) IMM GRAN x10^3 (test 0-0.06 code = 8289870478) LYMPH x10^3 (test code 1.91 10*3/uL 1.09-3.23 = 731-0) MONO x10^3 (test code 0.45 10*3/uL 0.36-1.02 = 742-7) EOS x10^3 (test code = 0.09 10*3/uL 0.06-0.53 711-2) BASO x10^3 (test code 0.03 10*3/uL 0.01-0.09 = 704-7) Lab Interpretation Abnormal (test code = 19196-7) [facility] Test Item Value Reference Range Interpretation Comments MAGNESIUM (test code = 6590014172) 1.8 mg/dL 1.7-2.4 Lab Interpretation (test code = Normal 03050-3) [facility] CARE VENOUS BLOOD [id number] 18:40:18 Test Item Value Reference Range Interpretation Comments PH (test code = 7.32-7.42 L 1094426823) PCO2 PANKAJ (test code = See_Comment [Auto mated message] 1285673223) The system Sticky generated this result transmitted ref erence range: 41 - 51 mmHg. The reference r meredith was not used to interpret this result as normal/abnor mal. PO2 PANKAJ (test code = See_Comment L [Autom ated message] 1053819512) The system Sticky generated this result transmitted ref erence range: 25 - 40 mmHg. The reference r meredith was not used to interpret this result as normal/abnor mal. HCO3 PANKAJ (test code = See_Comment L [Auto mated message] 0413336609) The system Sticky generated this result transmitted ref erence range: 24 - 28 mEq/L. The reference r meredith was not used to interpret this result as normal/abnor mal. AC VBE(BEAKER) (test mEq/L code = 6271650608) Lab Interpretation (test Abnormal code = 37194-4) [facility] METABOLIC PANEL (NA, K, CL, CO2, GLUCOSE, BUN, CREATININE, CA)2022-04-03 18:33:26 Test Item Value Reference Range Interpretation Comments NA (test code = 129 mmol/L 135-145 L 5387358552) K (test code = 3.3 mmol/L 3.5-5 L 0934523210) CL (test code = 100 mmol/L 98-108 8843718466) CO2 TOTAL (test code = 19 mmol/L 23-31 L 8311697852) AGAP (test code = 2-16 9042375264) BUN (test code = 49 mg/dL 7-23 H 9040201754) GLUCOSE (test code = 75 mg/dL 70-110 2960219073) CREATININE (test code = 2.55 mg/dL 0.6-1.25 H 8601851513) CALCIUM (test code = 8.6 mg/dL 8.6-10.6 7590960400) eGFR (test code = mL/min/1.73m2 5779589408) GILBERTO (test code = GILBERTO) Association of [...] tests). Lab Interpretation Abnormal (test code = 74176-1) [facility] OR [id number] 15:45:31 Test Item Value Reference Range Interpretation Comments OSMOLALITY (test code = See_Comment [Au tomated message] 4212-2) The system Sticky generated this result transmitted ref erence range: 278 - 30 5 mOsm/kg. The re ference range was not u sed to interpret this result as normal/abnor mal. Lab Interpretation (test Normal code = 25903-8) [facility] with Plltkksanzhf2460-84-87 11:27:34 Test Item Value Reference Range Interpretation Comments WBC (test code = See_Comment [Automated 4990-2) message] The sy stem which generated this result transmitted reference range : 4.20 - 10.70 10*3/?L. The reference range was not used to interpret this result as normal/abnormal . RBC (test code = See_Comment L [Automated 059-8) message] The sy stem which generated this [...] RDW-SD (test code = 48.7 fL 38.5-51.6 46852-0) RDW-CV (test code = 15.9 % 12.1-15.4 H 788-0) PLT (test code = See_Comment [Automated 777-3) message] The sy stem which generated this result transmitted reference range : 150 - 328 10*3/ ?L. The reference r meredith was not used to interpret this result as normal/abnormal . MPV (test code = 9.4 fL 9.8-13 L 33011-8) NRBC/100 WBC (test See_Comment [Automat ed code = 4930958509) message] The system which generated this result transmitted reference range : 0.0 - 10.0 /100 WBCs. The refer ence range was not u sed to interpret th is result as normal/abnormal . NRBC x10^3 (test code See_Comment [Auto mated = 4115879742) message] The s ystem which generated this result transmitted reference range : 10*3/?L. The reference range was not used to interpret this result as normal/abnormal . GRAN MAT (NEUT) % 56.0 % (test code = 770-8) IMM GRAN % (test code 0.50 % = 4393620386) LYMPH % (test code = 33.2 % 736-9) MONO % (test code = 8.6 % 5905-5) EOS % (test code = 1.1 % 713-8) BASO % (test code = 0.6 % 706-2) GRAN MAT x10^3(ANC) 3.64 10*3/uL 1.99-6.95 (test code = 4223249838) IMM GRAN x10^3 (test 0.03 10*3/uL 0-0.06 code = 8740822271) LYMPH x10^3 (test code 2.16 10*3/uL 1.09-3.23 = 731-0) MONO x10^3 (test code 0.56 10*3/uL 0.36-1.02 = 742-7) EOS x10^3 (test code = 0.07 10*3/uL 0.06-0.53 711-2) BASO x10^3 (test code 0.04 10*3/uL 0.01-0.09 = 704-7) Lab Interpretation Abnormal (test code = 51281-9) [facility] Metabolic Panel (NA, K, CL, CO2, GLUCOSE, BUN, CREATININE, CA)2022-04-03 10:08:59 Test Item Value Reference Range Interpretation Comments NA (test code = 125 mmol/L 135-145 L 8713698114) K (test code = 3.7 mmol/L 3.5-5 4342971324) CL (test code = 96 mmol/L 98-108 L 6016928646) CO2 TOTAL (test code = 15 mmol/L 23-31 L 4271045470) AGAP (test code = 2-16 0477141697) BUN (test code = 50 mg/dL 7-23 H 8707765644) GLUCOSE (test code = 86 mg/dL 70-110 6835984191) CREATININE (test code = 3.86 mg/dL 0.6-1.25 H 4167384946) CALCIUM (test code = 8.6 mg/dL 8.6-10.6 8284209884) eGFR (test code = mL/min/1.73m2 1334324442) GILBERTO (test code = GILBERTO) Association of [...] tests). Lab Interpretation Abnormal (test code = 05202-8) [facility] Whole [id number] 04:09:02 Test Item Value Reference Range Interpretation Comments LACTIC ACID (test code = 1.54 mmol/L 0.5-2.2 7690387875) Lab Interpretation (test code = Normal 41689-4) [facility] Acid Whole [id number] 00:25:08 Test Item Value Reference Range Interpretation Comments LACTIC ACID (test code = 2.50 mmol/L 0.5-2.2 H 2118380068) Lab Interpretation (test code = Abnormal 01841-6) [facility] WITH [id number] 20:19:45 Test Item Value Reference Range Interpretation Comments WBC (test code = See_Comment H [Automated 6590-2) message] The system which generated this result transmit dain reference range : 4.20 - 10.70 10*3/?L. The reference range was not used to interpret this result as normal/abnormal . RBC (test code = See_Comment [Automated 489-8) message] The system which generated this result [...] RDW-SD (test code = 49.8 fL 38.5-51.6 65402-1) RDW-CV (test code = 16.4 % 12.1-15.4 H 788-0) PLT (test code = See_Comment H [Automated 777-3) message] The system which generated this result transmit dain reference range : 150 - 328 10*3/ ?L. The reference range was not u sed to interpret th is result as normal/abnormal . MPV (test code = 10.7 fL 9.8-13 87136-0) NRBC/100 WBC (test See_Comment [Automat ed code = 0991875578) message] The system which generated this result transmit dain reference range : 0.0 - 10.0 /100 WBCs. The reference range was not used to interpret this result as normal/abnormal . NRBC x10^3 (test code See_Comment [Auto mated = 0240663125) message] The system which generated this result transmit dain reference range : 10*3/?L. The reference range was not used to interpret this result as normal/abnormal . GRAN MAT (NEUT) % 73.4 % (test code = 770-8) IMM GRAN % (test code 0.60 % = 6746294310) LYMPH % (test code = 17.2 % 736-9) MONO % (test code = 8.2 % 5905-5) EOS % (test code = 0.2 % 713-8) BASO % (test code = 0.4 % 706-2) GRAN MAT x10^3(ANC) 10.17 10*3/uL 1.99-6.95 H (test code = 5642895916) IMM GRAN x10^3 (test 0.09 10*3/uL 0-0.06 H code = 0351432155) LYMPH x10^3 (test code 2.38 10*3/uL 1.09-3.23 = 731-0) MONO x10^3 (test code 1.13 10*3/uL 0.36-1.02 H = 742-7) EOS x10^3 (test code = 0.03 10*3/uL 0.06-0.53 L 711-2) BASO x10^3 (test code 0.05 10*3/uL 0.01-0.09 = 704-7) Lab Interpretation Abnormal (test code = 23853-9) [facility] W/AUTO [id number] 00:06:00 Test Item Value Reference Range Interpretation [...] = MX#) 0.5 k/mm3 0.1-0.8 N TROPONIN-I [id number] 15:07:00 Test Item Value Reference Range Interpretation Comments TROPONIN-I RAPID 0.00 ng/mL 0.00-0.08 N Performed b y certified (test code = 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 [facility]) Ctr Negative: < = 0.08 Positive: >= 0. 09An elevated tropon in value alone is not rodriguez fficient todiagnose a my ocardial infarction. Rat her, the patient sclchrista al presentation (h istory, physical exam) and ECGshould be us ed in conjunction wit h troponin in thediagnosti c evaluation of s uspected myocardial infa rction. Aserial samplin g protocol is recommended to facilitate the identification of temporal changes in trop onin levels characteristic of SD. BASIC METABOLIC [id number] 14:56:00 Test Item Value Reference Range Interpretation [...] MG/DL 70-110 N - XR CHEST 1 [id number] 00:00:00 [facility] 1970 Sex: M FAX: Sabi Urias MD [phone] Alpha: ELLYN St: REG Name: JOSEPHHOANG FSED : 1970 Age/S: 52/M [address] [facility] Unit #: [id number] Loc: [place] [address] Phys: Sabi Urias MD Acct: [id number] Dis Date: Status: REG ER PHONE #: Exam Date: 03/29/2022 1501 FAX #: Reason: Weakness EXAMS: CPT CODE: [id number] XR CHEST 1 V 55733 PROCEDURE INFORMATION: Exam: XR Chest Exam date and time: 03/29/2022 2:31 PM Age: 52 years old Clinical indication: Other: Weakness; () TECHNIQUE: Imaging protocol: Radiologic exam of the chest. Views: 1 view. COMPARISON: CR XR CHEST 1V 06/27/2021 3:37 PM FINDINGS: Lungs: Thelungs appear emphysematous. No appreciable pneumonia or edema. Pleural spaces: No appreciable pleural effusion or pneumothorax. Heart/Mediastinum: Cardiac silhouette within normal limits. Diaphragm: Moderate elevation left hemidiaphragm, unchanged. Bones/joints: Negative acute. IMPRESSION: COPD. at 1530 Reported and signed by: Barrett Bailey M.D. CC: Sabi Urias MD Technologist: RT Simone(R)(CT) [facility] Date/Time/By: 03/29/2022 (1530) : By: GarettTTV Orig Print D/T: S: 03/29/2022 (1531) PAGE 1 Signed ReportHEPATIC FUNCTION [id number] 06:45:03 Test Item Value Reference Range Interpretation [...] (test code = 13 U/L 6-55 347) Sand Filler ID Philipp HOOD WBASIC METABOLIC [id number] 06:45:02 Test Item Value Reference Range Interpretation [...] S NOT APPLICABLE FOR DIALYSIS PATIEN TS. Sand Filler ID Philipp HOOD WCBC W/PLT COUNT & AUTO [id number] 06:26:54 Test Item Value Reference Range Interpretation [...] (BEAKER) (test code = 2801) U/S, RENAL, [id number] 19:23:00Reason for exam:->acute kidney injury [facility] 1970 Sex: [...] IMPRESSION:Unremarkable ultrasound of the kidneys. Signed: Amberly Prater MDReport Verified Date/Time: 03/06/2022 19:23:41 -CoV2/RT-PCR (Asymptomatic ONLY)2022-03-06 19:17:07 Test Item Value Reference Interpretation Comments Range SARS-COV2/RT-PCR Negative Negative The SARS-Co V-2 (test code = target nucleic 71863-1) acids are not detected in thi s specimen. Negat ector results do not preclude SARS-C oV-2 infection and should not be u sed as the sole bas is for patient management decisions. Nega tive results must be combined with clinical observations, patient history , and epidemiolog ical information. A false negative result may occu r if a specimen is improperly collected, transported or handled. This S ARS CoV-2 test is a rapid, real-selena e RT-PCR test intended for th e qualitative detection of nucleic acid fr om SARS-CoV-2 in a nasopharyngeal swab specimen [facility] from individual s suspected of COVID-19 by the ir healthcare provider. GILBERTO (test code = This test has been GILBERTO) authorized by FDA under an EUA for [...] revoked sooner. Fact Sheet for Healthcare Providers: https://www.[employer]/Documents/Xp ert%20Xpress%20SAR S%20CoV-2/Fact%20S heets/302-3802%20S ARS-COV-2%20HEALTH CARE%20PROVIDERS%2 0FACT%20SHEET.pdf Fact Sheet for Healthcare Patients: https://www.[employer]/Documents/Xp ert%20Xpress%20SAR S%20CoV-2/Fact%20S heets/302-3801%20S ARS-COV-2%20PATIEN T%20FACT%20SHEET.p df Lab Interpretation Normal (test code = 97304-9) [facility])2022-03-06 19:17:07 Test Item Value Reference Range Interpretation Comments SARS-COV2/RT-PCR Negative Negative The SARS-Co V-2 target (test code = nucleic acids a re not 1172965) detected in thi s specimen. Negative result [...] revoked sooner. Fact Sheet for Healthcare Providers: https://www.[employer]/Documents/Xpert%20Xpress%20SARS%20CoV-2/Fact%20Sheets/302-3802%25RRCH-KKV-6%20 HEALTHCARE%20PROVIDERS%20FACT%20SHEET.pdf Fact Sheet for Healthcare Patients: https://www.[employer]/Documents/Xpert%20Xp ress%20SARS%20CoV-2/Fact%20Sheets/302-3801%75PADR-ZHT-1%20PATIENT%20FACT%20SHEET .pdfCREATINE KINASE (CK)2022-03-06 16:19:14 Test Item Value Reference Range Interpretation Comments CREATINE KINASE TOTAL (BEAKER) (test 141 U/L 29-200 code = 380) Sand Filler ID - BST4, [id number] 15:13:16 Test Item Value Reference Range Interpretation Comments FREE T4 (BEAKER) (test code = 655) 0.95 ng/dL 0.70-1.48 Sand Filler ID - BSTSH/FREE T4 IF [id number] 15:13:16 Test Item Value Reference Range Interpretation Comments THYROID STIMULATING HORMONE 2.060 uIU/mL 0.350-4.940 (BEAKER) (test code = 772) Sand Filler ID - BSB-TYPE NATRIURETIC FACTOR (BNP)2022-03-06 14:26:30 Test Item Value Reference Range Interpretation Comments B-TYPE NATRIURETIC PEPTIDE (BEAKER) < pg/mL 0-100 (test code = 700) Sand Filler ID - JSHIGH SENSITIVITY TROPONIN [id number] 14:14:54 Test Item Value Reference Range Interpretation Comments HIGH SENSITIVITY < pg/ml See_Comment [Automated message] TROPONIN I (test code = The system which 0276698) generated this result transmitted ref erence range: <=35. Th e reference range was not used to interpr et this result as normal/abnormal . Sand Filler ID - JSThe MACHINE SHOP WORKER STAT High Sensitivity Troponin-I results should be used in conjunctionwith other diagnostic information such as ECG, clinical observations and information, and patient symptoms to aid in the diagnosis of SD.RAD, CHEST, 1 VIEW, NON [id number] 14:10:00Reason for exam:- >NEUROLOGIC PROBLEMShould this be performed at the bedside?->Yes [facility] : 1970 Sex: MFINAL REPORT Chest, 1 view, 03/06/2022 2:03 PM. History: Neurologic problem. Comparison: 03/28/2019. Discussion: The cardiomediastinal silhouette and pulmonary vasculature are within normal limits for a portable exam. The lungs are clear without evidence of consolidation or effusion. The soft tissues and osseous structures are intact. IMPRESSION: No acute cardiopulmonary abnormality. Signed: Alona Brown [facility] Verified Date/Time: 03/06/2022 14:10:44 REHENSIVE METABOLIC [id number] 14:08:22 Test Item Value Reference Range Interpretation [...] S NOT APPLICABLE FOR DIALYSIS PATIEN TS. Sand Filler ID - [id number] 14:07:49 Test Item Value Reference Range Interpretation Comments MAGNESIUM (BEAKER) (test code = 2.0 mg/dL 1.6-2.6 627) Sand Filler ID - [id number] 14:07:49 Test Item Value Reference Range Interpretation Comments PHOSPHORUS (BEAKER) (test code = 5.6 mg/dL 2.3-4.7 H 604) Sand Filler ID - JSLACTIC ACID, [id number] 13:51:04 Test Item Value Reference Range Interpretation Comments LACTATE BLOOD VENOUS 1.32 mmol/L 0.50-2.20 Specime n slightly (2) (BEAKER) (test hemolyzed code = 2872) Sand Filler ID - JSCBC W/PLT COUNT & AUTO [id number] 13:47:24 Test Item Value Reference Range Interpretation [...] 0-1 PERCENT (BEAKER) (test code = 2801) Coronavirus, CoVID-19, [id number] 01:07:20 Test Item Value Reference Range Interpretation Comments COVID-19 (SARS-COV-2) Not Detected Not Detected INTERP RETATION: No (test code = 28513-4) detect able levels of SARS-CoV-2 Coronavirus (COVID-19) were present in this patient's [...] SARS-CoV-2 mole cular diagnostic assa y utilizes Heel Buffer Mediated Amplification ( TMA) technology to r apidly detect the SARS -CoV-2 (COVID-19) viru s from respiratory adriana ples. In accordance w ith the FDA's kamran nce document "Polic y for Diagnostic Test s for Coronavirus Disease-2019 du ring the Public Heal Emergency", thi s test was developed, and its performance characteristics were verified by the [facility] molecular diagn ostics laboratory and is authorized for clinical diagno stic use. This labor atory is certified un estevan the Clinical Laboratory Improvement Amendments (CLI A) as qualified to pe rform high complexity clinical labora tory testing. Lab Interpretation Normal (test code = 71582-0) [facility]-CoV-2 ORF1ab Resp Ql OLENA+[id number] 01:07:20 Test Item Value Reference Range Interpretation Comments Hospitalized? (test No code = 73963-2) ICU? (test code = No 64257-2) Symptomatic as No defined by CDC? (test code = 95867-4) Employed in No Healthcare? (test code = 09910-4) Resident in a No congregate care setting (including nursing homes, residential care for people with intellectual and developmental disabilities, psychiatric treatment facilities, group homes, board and care homes, homeless detention, foster care or other): (test code = 34791-9) SARS-CoV-2 ORF1ab NOT DETECTED Not Detected INTERPRETA TION: No Resp Ql OLENA+probe detectable levels of (test code = SARS-CoV-2 71548-7) Coronavirus (COVID-19) were present in this patient's [...] SARS-CoV-2 mole cular diagnostic assa y utilizes Heel Buffer Mediated Amplification ( TMA) technology to r apidly detect the SARS -CoV-2 (COVID-19) viru s from respiratory adriana ples. In accordance with\\XC2A0\\the FDA's guidance docume nt "Policy for Diagnostic Test s for Coronavirus Disease-2019 du [place] the Public Heal Emergency", amalia s test was developed, and its performance characteristics were verified by the [facility] molecular diagn ostics laboratory and is authorized for clinical diagno stic use. \\XC2A0\\Thi s laboratory is certified under the Clinical Labora tory Improvement Amendments (CLI A) as qualified to pe rform high complexity clinical labora tory testing. POCT GLUCOSE POC docked [id number] 08:09:01 Test Item Value Reference Range Interpretation Comments Glucose POC (test code = 13516634) 85 mg/dL 74-106 Lab Interpretation (test code = Normal 50343-3) [facility] ORF1ab Resp Ql OLENA+[id number] 23:25:40 Test Item Value Reference Range Interpretation Comments Hospitalized? (test No code = 05437-9) ICU? (test code = No 99492-4) Symptomatic as No defined by CDC? (test code = 87831-3) Employed in No Healthcare? (test code = 57656-1) Resident in a No congregate care setting (including nursing homes, residential care for people with intellectual and developmental disabilities, psychiatric treatment facilities, group homes, board and care homes, homeless detention, foster care or other): (test code = 86224-4) SARS-CoV-2 ORF1ab NOT DETECTED Not Detected INTERPRETA TION: No Resp Ql OLENA+probe detectable levels of (test code = SARS-CoV-2 70827-9) Coronavirus (COVID-19) were present in this patient's [...] SARS-CoV-2 mole cular diagnostic assa y utilizes Heel Buffer Mediated Amplification ( TMA) technology to r apidly detect the SARS -CoV-2 (COVID-19) viru s from respiratory adriana ples. In accordance with\\XC2A0\\the FDA's guidance docume nt "Policy for Diagnostic Test s for Coronavirus Disease-2018 du [facility] the Public [facility] Emergency", amalia s test was developed, and its performance characteristics were verified by the [facility] molecular diagn ostics laboratory and is authorized for clinical diagno stic use. \\XC2A0\\Thi s laboratory is certified under the Clinical Labora tory Improvement Amendments (CLI A) as qualified to pe rform high complexity clinical labora tory testing. 12 Lead [id number] 15:46:1012 LEAD EKG FOR [facility] Test Date: 5794-73-37Gro Name: DORA JOSEPH Department: 5ECIPatient ID: [id number] Room: Gender: M Hand Zipper Trimmer: [id number]: 1970 Requested By: SUSHIL LOERA Enterprise Number: [id number] Reading MD: Rene Patterson MeasurementsIntervals [place] Rate: 61 P: 72PR: 152 QRS: 55QRSD: 106 T: 63QT: 398 QTc: 400 Interpretive StatementsSINUS RHYTHMPOSSIBLE RIGHT VENTRICULAR CONDUCTION DELAY [RSR (QR) IN V1/V2]Electronically Signed On 01-22-2022 8:30:45 CD[facility]2 Ab+HIV1 p24 Ag SerPl Ql [id number] 07:02:58 Test Item Value Reference Range Interpretation Comments HIV 1+2 Ab+HIV1 p24 Ag SerPl Ql IA NEGATIVE Negative (test code = 65690-1) [id number] 21:23:2512 LEAD EKG FOR [facility] Test Date: 0668-78-71Ysi Name: DORA JOSEPH Department: [id number] ID: [id number] Room: 7D33Hkesxl: M Hand Zipper Trimmer: : 1970 Requested By: KARIN BASSETT AOrder Number: [id number] Reading MD: Chiara Calles MeasurementsIntervals [place] Rate: 72 P: 90PR:157 QRS: 87QRSD: 105 T: 90QT: 360 QTc: 384 Interpretive StatementsSINUS RHYTHMPOSSIBLE RIGHT VENTRICULAR CONDUCTION DELAY [RSR (QR) IN V1/V2]EARLY REPOLARIZATION [ST ELEVATION WITH NORMALLY INFLECTED T-WAVE]Electronically Signed On 01-17-2022 13:02:30 CDT by Chiara DavisCoshocton [facility] Medical CenterRS-CoV-2 ORF1ab Resp Ql OLENA+ubujm6813-62-70 19:57:49 Test Item Value Reference Range Interpretation Comments Hospitalized? (test No code = 48094-6) ICU? (test code = No 31257-3) Symptomatic as No defined by CDC? (test code = 45475-8) Employed in No Healthcare? (test code = 93835-7) Resident in a No congregate care setting (including nursing homes, residential care for people with intellectual and developmental disabilities, psychiatric treatment facilities, group homes, board and care homes, homeless detention, foster care or other): (test code = 08234-7) SARS-CoV-2 ORF1ab NOT DETECTED Not Detected INTERPRETA TION: No Resp Ql OLENA+probe detectable levels of (test code = SARS-CoV-2 01428-2) Coronavirus (COVID-19) were present in this patient's [...] SARS-CoV-2 mole cular diagnostic assa y utilizes Heel Buffer Mediated Amplification ( TMA) technology to r apidly detect the SARS -CoV-2 (COVID-19) viru s from respiratory adriana ples. In accordance with\\XC2A0\\the FDA's guidance docume nt "Policy for Diagnostic Test s for Coronavirus Disease-2019 du [facility] the [facility] Emergency", amalia s test was developed, and its performance characteristics were verified by the [facility] molecular diagn ostics laboratory and is authorized for clinical diagno stic use. \\XC2A0\\Thi s laboratory is certified under the Clinical Labora tory Improvement Amendments (CLI A) as qualified to pe rform high complexity clinical labora tory testing. POCT CREATININE POC docked [id number] 13:57:55 Test Item Value Reference Range Interpretation Comments Creatinine POC (test 2.4 mg/dL 0.6-1.3 H Physici an Notified code = 62606092) eGFR If non- Am 30 See_Comment L [Aut omated message] (test code = 08322077) The s ystem which generated this result transmit dain reference range : >=90 mL/min/1.7 3 m2. The reference r meredith was not used to interpret this result as normal/abnormal . eGFR If Am (test 35 See_Comment L [A utomated message] code = 12137392) The system which generated this result transmit dain reference range : >=90 mL/min/1.7 3 m2. The reference r meredith was not used to interpret this result as normal/abnormal . Lab Interpretation (test Abnormal code = 67929-5) [facility] BMP POC docked [id number] 13:48:46 Test Item Value Reference Range Interpretation Comments Sodium POC (test code = 126 mmol/L 136-145 L 11708162) Potassium POC (test code 4.4 mmol/L 3.5-5.1 = 26266269) Chloride POC (test code 100 mmol/L 98-107 = 36210276) TCO2 POC (test code = 17 mmol/L 21-32 L Physic aylin Notified 68994595) Urea Nitrogen POC (test 36 mg/dL 7-18 H code = 03427805) Glucose POC (test code = 114 mg/dL 74-106 H 46918660) Hemoglobin POC (test 11.9 g/dL 12-16 L code = 50591508) Hematocrit POC (test 35.0 % 37.0-47.0 L code = 46132513) Lab Interpretation (test Abnormal code = 10166-2) [facility]-CoV-2 ORF1ab Resp Ql OLENA+[id number] 20:25:16 Test Item Value Reference Range Interpretation Comments Hospitalized? (test No code = 96340-8) ICU? (test code = No 99229-5) Symptomatic as No defined by CDC? (test code = 76850-0) Employed in No Healthcare? (test code = 40570-0) Resident in a No congregate care setting (including nursing homes, residential care for people with intellectual and developmental disabilities, psychiatric treatment facilities, group homes, board and care homes, homeless detention, foster care or other): (test code = 53711-2) SARS-CoV-2 ORF1ab NOT DETECTED Not Detected INTERPRETA TION: No Resp Ql OLENA+probe detectable levels of (test code = SARS-CoV-2 94355-9) Coronavirus (COVID-19) were present in this patient's [...] SARS-CoV-2 mole cular diagnostic assa y utilizes Heel Buffer Mediated Amplification ( TMA) technology to r apidly detect the SARS -CoV-2 (COVID-19) viru s from respiratory adriana ples. In accordance with\\XC2A0\\the FDA's guidance docume nt "Policy for Diagnostic Test s for Coronavirus Disease-2019 du ring the Public Heal th Emergency", amalia lopez test was developed, and its performance characteristics were verified by the [facility] molecular diagn ostics laboratory and is authorized for clinical diagno stic use. \\XC2A0\\Amalia s laboratory is certified under the Clinical Labora tory Improvement Amendments (CLI A) as qualified to pe rform high complexity clinical labora tory testing. POCT VBG POC docked [id number] 11:16:15 Test Item Value Reference Range Interpretation Comments pH, Pankaj POC (test code 7.32 7.33-7.43 L = 37092373) pCO2,Pankaj POC (test code 31.0 See_Comment L [Au tomated = 87374169) message] The sy stem which generated this result transmitted reference range : 38 - 50 mmHg. The reference range was not used to interpret this result as normal/abnormal . PO2, Venous POC (BKR) 44 See_Comment L [Auto mated (test code = 86405206) messa ge] The system which generated this result transmitted reference range : 50 - 75 mm Hg. The reference range was not used to interpret this result as normal/abnormal . Ionized Calcium POC 1.24 mmol/L 1.15-1.29 (test code = 03389767) HCO3, Pankaj POC (test 16 mmol/L 22-26 L code = 37858240) TCO2 POC (test code = 17 mmol/L 21-32 L 36232422) Base Deficit, Pankaj POC -9 (test code = 13497700) Sample Type (test code IVEN Physi erik Notified = 33457862) % Sat, Pankaj POC (test 77 % code = 53485507) Lab Interpretation Abnormal (test code = 18915-6) [place] [address] LEAD [id number] 20:59:5612 LEAD EKG FOR [facility] Test Date: 9301-29-13Gpb Name: DORA JOSEPH Department: 5520Patient ID: [id number] Room: Gender: M Hand Zipper Trimmer: [id number]: 1970 Requested By: TANJA Garza Number: [id number] Lawson MD: Chiara Calles MeasurementsIntervals [place] Rate: 75 P: 84PR: 153 QRS: 67QRSD: 104 T: 77QT: 344 QTc: 373 Interpretive StatementsSINUS RHYTHMPOSSIBLE RIGHT VENTRICULAR CONDUCTION DELAY [RSR (QR) IN V1/V2]Electronically Signed On 01-09-2022 8:27:19 [facility] [id number] 23:52:00 Test Item Value Reference Range Interpretation [...] = MX#) 0.8 k/mm3 0.1-0.8 N LIVER [id number] 20:04:00 Test Item Value Reference Range Interpretation Comments TOTAL PROTEIN (test code 6.7 GM/DL 5.0-8.0 N Per formed by = PROT) 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 [facility] ALBUMIN (test code = 3.4 [...] (test code = 67 UNITS/L 25-125 N TAWNY) BASIC METABOLIC [id number] 19:54:00 Test Item Value Reference Range Interpretation [...] POCGLU) 81 MG/DL - CT ABD PELVIS W/[id number] 00:00:00 [facility] 1970 Sex: M Name: HOANG JOSEPH FSED : 1970 Age/S: 51 / M [address] [facility] Unit #: [id number] Loc: [place] [address] Phys: Raffaele Levi MD Acct: [id number] Dis Date: Status: PRE ER PHONE #: Exam Date: 09/23/20211999 FAX #: Reason: RUQ PAIN, VOMITING EXAMS: CPT CODE: [id number] CT ABD PELVIS W/CONT 14203 PROCEDURE INFORMATION: Exam: CT Abdomen And Pelvis [...] : 1970 Age/S: 51 / M [address] [facility] Unit #: [id number] Loc: [place] [address] Phys: Raffaele Levi MD Acct: [id number] Dis Date: Status: PRE ER PHONE #: Exam Date: 09/23/20211999 FAX #: Reason: RUQ PAIN, VOMITING EXAMS: CPT CODE: [id number] CT ABD PELVIS W/CONT 87742 <Continued> abdominal small bowel loops may relate to incom plete luminal distention or enteritis. 2. 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 No obstruction. at 2048 Reported and signed by: Juan Juarez M.D. CC: Raffaele Levi MD Technologist:Stephanie Albrecht RT(R)(CT) CTDI: DLP: Trnscb Date/Time: 09/23/2021 (2048) t.SDR.SG9 Orig Print D/T: S: 09/23/2021 (2049) PAGE 2 Signed ReportCOMP. METABOLIC PANEL ([id number])2021-09-14 03:57:44 Test Item Value Reference Range Interpretation Comments NA (test code = 132 mmol/L 135-145 L 5611631532) K (test code = 4.1 mmol/L 3.5-5.0 3699337892) CL (test code = 101 mmol/L 98-108 7669496602) CO2 TOTAL (test code = 23 mmol/L 23-31 4378754410) AGAP (test code = 2-16 7246370948) BUN (test code = 23 mg/dL 7-23 9056658779) GLUCOSE (test code = 97 mg/dL 70-110 4656508834) CREATININE (test code = 1.48 mg/dL 0.60-1.25 H 7148286590) TOTAL BILI (test code = 0.3 mg/dL 0.1-1.0 6335256034) CALCIUM (test code = 9.0 mg/dL 8.6-10.6 2374430721) T PROTEIN (test code = 6.2 g/dL 6.3-8.2 L 6859470736) ALBUMIN (test code = 3.7 g/dL 3.5-5.0 0458517436) ALK PHOS (test code = 82 U/L 34-122 8151087424) ALTv (test code = 21 U/L 5-50 2-6) AST(SGOT) (test code = 20 U/L 13-40 7144291438) eGFR (test code = mL/min/1.73m2 2026799289) GILBERTO (test code = GILBERTO) Association of [...] tests). Lab Interpretation Abnormal (test code = 71533-9) [facility] WITH [id number] 03:52:42 Test Item Value Reference Range Interpretation [...] RDW-SD (test code = 47.2 fL 38.5-51.6 32204-5) RDW-CV (test code = 14.0 % 12.1-15.4 788-0) PLT (test code = See_Comment H [Automated 777-3) message] The sy stem which generated this result transmitted reference range : 150 - 328 10*3/ ?L. The reference r meredith was not used to interpret this result as normal/abnormal . MPV (test code = 9.2 fL 9.8-13.0 L 88729-4) NRBC/100 WBC (test See_Comment [Automat ed code = 5677425323) message] The system which generated this result transmitted reference range : 0.0 - 10.0 /100 WBCs. The refer ence range was not u sed to interpret th is result as normal/abnormal . NRBC x10^3 (test code <0.01 See_Comment [Auto mated = 0247260988) message] The s ystem which generated this result transmitted reference range : 10*3/?L. The reference range was not used to interpret this result as normal/abnormal . GRAN MAT (NEUT) % 61.3 % (test code = 770-8) IMM GRAN % (test code 0.20 % = 4132429616) LYMPH % (test code = 23.1 % 736-9) MONO % (test code = 13.7 % 5905-5) EOS % (test code = 1.5 % 713-8) BASO % (test code = 0.2 % 706-2) GRAN MAT x10^3(ANC) 2.78 10*3/uL 1.99-6.95 (test code = 9957196016) IMM GRAN x10^3 (test <0.03 0.00-0.06 code = 1738442515) LYMPH x10^3 (test code 1.05 10*3/uL 1.09-3.23 L = 731-0) MONO x10^3 (test code 0.62 10*3/uL 0.36-1.02 = 742-7) EOS x10^3 (test code = 0.07 10*3/uL 0.06-0.53 711-2) BASO x10^3 (test code <0.03 0.01-0.09 = 704-7) Lab Interpretation Abnormal (test code = 59362-3) [id number] 13:36[facility]34 Test Item Value Reference Interpretation Comments Range TROPONIN I (test 0.001 ng/mL See_Comment [Automated code = 3189362820) message] The system which generated this result [...] biotin. Lab Interpretation Normal (test code = 32947-8) [facility]-[id number] 13:36:34 Test Item Value Reference Range Interpretation Comments NT-proBNP (test code 79 pg/mL See_Comment [Autom ated = 9799477018) message] The system which generated this result transmitted reference range : <=125. The reference range was not used to interpret this result as normal/abnormal . GILBERTO (test code = GILBERTO) Biotin has been reported to cause a negative bias, interpret results relative to patient's use of biotin. Lab Interpretation Normal (test code = 59997-3) [facility] (NA, K, CL, CO2, GLUCOSE, BUN, CREATININE, CA)2021-09-12 13:24:32 Test Item Value Reference Range Interpretation Comments NA (test code = 134 mmol/L 135-145 L 6143924868) K (test code = 4.3 mmol/L 3.5-5.0 5074383948) CL (test code = 102 mmol/L 98-108 3612715679) CO2 TOTAL (test code = 23 mmol/L 23-31 6195362273) AGAP (test code = 2-16 4528753309) BUN (test code = 22 mg/dL 7-23 4490432110) GLUCOSE (test code = 89 mg/dL 70-110 7780905564) CREATININE (test code = 1.69 mg/dL 0.60-1.25 H 8509282666) CALCIUM (test code = 9.0 mg/dL 8.6-10.6 0726645377) eGFR (test code = mL/min/1.73m2 7834404381) GILBERTO (test code = GILBERTO) Association of [...] tests). Lab Interpretation Abnormal (test code = 07781-1) [facility] WITH [id number] 13:09:28 Test Item Value Reference Range Interpretation [...] RDW-SD (test code = 45.3 fL 38.5-51.6 11695-1) RDW-CV (test code = 13.9 % 12.1-15.4 788-0) PLT (test code = See_Comment H [Automated 777-3) message] The sy stem which generated this result transmitted reference range : 150 - 328 10*3/ ?L. The reference r meredith was not used to interpret this result as normal/abnormal . MPV (test code = 9.0 fL 9.8-13.0 L 49084-4) NRBC/100 WBC (test See_Comment [Automat ed code = 5577757811) message] The system which generated this result transmitted reference range : 0.0 - 10.0 /100 WBCs. The refer ence range was not u sed to interpret th is result as normal/abnormal . NRBC x10^3 (test code <0.01 See_Comment [Auto mated = 7197053722) message] The s ystem which generated this result transmitted reference range : 10*3/?L. The reference range was not used to interpret this result as normal/abnormal . GRAN MAT (NEUT) % 69.7 % (test code = 770-8) IMM GRAN % (test code 0.40 % = 4667741536) LYMPH % (test code = 16.9 % 736-9) MONO % (test code = 11.9 % 5905-5) EOS % (test code = 0.7 % 713-8) BASO % (test code = 0.4 % 706-2) GRAN MAT x10^3(ANC) 3.88 10*3/uL 1.99-6.95 (test code = 4987125467) IMM GRAN x10^3 (test <0.03 0.00-0.06 code = 7782535812) LYMPH x10^3 (test code 0.94 10*3/uL 1.09-3.23 L = 731-0) MONO x10^3 (test code 0.66 10*3/uL 0.36-1.02 = 742-7) EOS x10^3 (test code = 0.04 10*3/uL 0.06-0.53 L 711-2) BASO x10^3 (test code <0.03 0.01-0.09 = 704-7) Lab Interpretation Abnormal (test code = 07864-9) [facility] WITH [id number] 05:55:28 Test Item Value Reference Range Interpretation Comments WBC (test code = See_Comment [Automated 1590-2) message] The sy stem which generated this [...] RDW-SD (test code = 45.4 fL 38.5-51.6 71208-4) RDW-CV (test code = 13.8 % 12.1-15.4 788-0) PLT (test code = See_Comment [Automated 777-3) message] The sy stem which generated this result transmitted reference range : 150 - 328 10*3/ ?L. The reference r meredith was not used to interpret this result as normal/abnormal . MPV (test code = 9.2 fL 9.8-13.0 L 17576-0) NRBC/100 WBC (test See_Comment [Automat ed code = 3203597541) message] The system which generated this result transmitted reference range : 0.0 - 10.0 /100 WBCs. The refer ence range was not u sed to interpret th is result as normal/abnormal . NRBC x10^3 (test code <0.01 See_Comment [Auto mated = 2956400736) message] The s ystem which generated this result transmitted reference range : 10*3/?L. The reference range was not used to interpret this result as normal/abnormal . GRAN MAT (NEUT) % 60.6 % (test code = 770-8) IMM GRAN % (test code 0.20 % = 4944955550) LYMPH % (test code = 25.5 % 736-9) MONO % (test code = 10.5 % 5905-5) EOS % (test code = 2.8 % 713-8) BASO % (test code = 0.4 % 706-2) GRAN MAT x10^3(ANC) 3.23 10*3/uL 1.99-6.95 (test code = 5553505498) IMM GRAN x10^3 (test <0.03 0.00-0.06 code = 4745396775) LYMPH x10^3 (test code 1.36 10*3/uL 1.09-3.23 = 731-0) MONO x10^3 (test code 0.56 10*3/uL 0.36-1.02 = 742-7) EOS x10^3 (test code = 0.15 10*3/uL 0.06-0.53 711-2) BASO x10^3 (test code <0.03 0.01-0.09 = 704-7) Lab Interpretation Abnormal (test code = 39937-4) [facility] 05:48[facility]47 Test Item Value Reference Range Interpretation Comments LIPASE (test code = 3192282392) 116 U/L 0-220 Lab Interpretation (test code = Normal 97618-1) [facility] PAN[facility] ([id number])2021-09-09 05:48:46 Test Item Value Reference Range Interpretation Comments NA (test code = 137 mmol/L 135-145 0350599617) K (test code = 4.0 mmol/L 3.5-5.0 8880414440) CL (test code = 108 mmol/L 98-108 9266030922) CO2 TOTAL (test code = 22 mmol/L 23-31 L 7056469407) AGAP (test code = 2-16 8310405361) BUN (test code = 23 mg/dL 7-23 8758910980) GLUCOSE (test code = 89 mg/dL 70-110 9582602554) CREATININE (test code = 1.28 mg/dL 0.60-1.25 H 8105295687) TOTAL BILI (test code = 0.4 mg/dL 0.1-1.6 8384191916) CALCIUM (test code = 8.9 mg/dL 8.6-10.6 1728251197) T PROTEIN (test code = 6.0 g/dL 6.3-8.2 L 1333917383) ALBUMIN (test code = 3.5 g/dL 3.5-5.0 5760878817) ALK PHOS (test code = 67 U/L 34-122 2863780344) ALTv (test code = 18 U/L 5-50 1742-6) AST(SGOT) (test code = 22 U/L 13-40 9953127935) eGFR (test code = mL/min/1.73m2 7038922449) GILBERTO (test code = GILBERTO) Association of [...] tests). Lab Interpretation Abnormal (test code = 84163-8) [facility]. METABOLIC PANEL ([id number])2021-09-08 02:29:45 Test Item Value Reference Range Interpretation Comments NA (test code = 138 mmol/L 135-145 2279986163) K (test code = 4.3 mmol/L 3.5-5.0 1466177592) CL (test code = 106 mmol/L 98-108 0340611763) CO2 TOTAL (test code = 27 mmol/L 23-31 9037686406) AGAP (test code = 2-16 6723245191) BUN (test code = 22 mg/dL 7-23 3877188734) GLUCOSE (test code = 90 mg/dL 70-110 4027385986) CREATININE (test code = 1.36 mg/dL 0.60-1.25 H 7839475021) TOTAL BILI (test code = 0.4 mg/dL 0.1-1.5 7965091428) CALCIUM (test code = 9.2 mg/dL 8.6-10.6 8750156127) T PROTEIN (test code = 6.5 g/dL 6.3-8.2 3484973208) ALBUMIN (test code = 3.8 g/dL 3.5-5.0 1274454166) ALK PHOS (test code = 73 U/L 34-122 5619363470) ALTv (test code = 19 U/L 5-50 1742-6) AST(SGOT) (test code = 24 U/L 13-40 5737423895) eGFR (test code = mL/min/1.73m2 1707549642) GILBERTO (test code = GILBERTO) Association of [...] tests). Lab Interpretation Abnormal (test code = 52737-4) [facility] 02:29:45 Test Item Value Reference Range Interpretation Comments LIPASE (test code = 7651798869) 75 U/L 0-220 Lab Interpretation (test code = Normal 45875-3) [facility] WITH [id number] 02:15:21 Test Item Value Reference Range Interpretation Comments WBC (test code = See_Comment [Automated 4790-2) message] The sy stem which generated this [...] RDW-SD (test code = 45.9 fL 38.5-51.6 80328-7) RDW-CV (test code = 13.6 % 12.1-15.4 788-0) PLT (test code = See_Comment [Automated 777-3) message] The sy stem which generated this result transmitted reference range : 150 - 328 10*3/ ?L. The reference r meredith was not used to interpret this result as normal/abnormal . MPV (test code = 9.4 fL 9.8-13.0 L 79554-8) NRBC/100 WBC (test See_Comment [Automat ed code = 0810398552) message] The system which generated this result transmitted reference range : 0.0 - 10.0 /100 WBCs. The refer ence range was not u sed to interpret th is result as normal/abnormal . NRBC x10^3 (test code <0.01 See_Comment [Auto mated = 7918587049) message] The s ystem which generated this result transmitted reference range : 10*3/?L. The reference range was not used to interpret this result as normal/abnormal . GRAN MAT (NEUT) % 66.0 % (test code = 770-8) IMM GRAN % (test code 0.50 % = 5344098296) LYMPH % (test code = 20.0 % 736-9) MONO % (test code = 9.8 % 5905-5) EOS % (test code = 3.5 % 713-8) BASO % (test code = 0.2 % 706-2) GRAN MAT x10^3(ANC) 3.77 10*3/uL 1.99-6.95 (test code = 1820393113) IMM GRAN x10^3 (test 0.03 10*3/uL 0.00-0.06 code = 4714678128) LYMPH x10^3 (test code 1.14 10*3/uL 1.09-3.23 = 731-0) MONO x10^3 (test code 0.56 10*3/uL 0.36-1.02 = 742-7) EOS x10^3 (test code = 0.20 10*3/uL 0.06-0.53 711-2) BASO x10^3 (test code <0.03 0.01-0.09 = 704-7) Lab Interpretation Abnormal (test code = 71045-6) [facility] Whole [id number] 02:10:44 Test Item Value Reference Range Interpretation Comments LACTIC ACID (test code = 1.35 mmol/L 0.50-2.20 2899003269) Lab Interpretation (test code = Normal 06521-5) [facility] [id number] 15:31:19 Test Item Value Reference Range Interpretation Comments Case Report (test code Surgical Pathology ? ? = 0359903079) ?Case: [id number] ? Authorizing Provider: ?Bia Pedro MD ?Collected: ? 09/03/2021 0801 ?Ordering Location: ? ? [facility] OR ? Received: ?09/03/2021841 ? Department ? Pathologist: ? Shaneka Douglas MD ? Specimen: ? ?ILEUM, Ileostomy ( staple ?end proximal ) ? Final Diagnosis (test t3zzaOXvDNDef0dmPUVzgO code = 5525617046) FuZzEwMzNcZnRuYmpcdWMx IHtccnRmMVxlcGljOTYwMV ytvqKfDVBhqJCpK0Bzytbs MLvsSJ9uIE2vhIghrOKloY MvSZPhTnTcr1qjh181xWPc y4sxPGKYkuqrjRq9tUgaF7 3jo2R4IqmpV56wdHLtGAQ9 LCUzGQLhsKRxQECiVFA0HN TmgEEmU9qdXBTnNM4vcwae XKzzKBcwKKQeeQN4TAQezP JvN8IiFNJfMZrnOFUholf9 GrEuZn7mfZAcaThvEOcuLJ JkXHBsYWluXGZzMjBccGFy IEEuIElMRVVNLCBJTEVPU1 YYLYf7LWHtqpVmHGSkTO2d QkVOSUdOIElMRUFMIFRJU1 GXQIFTTNWPTXCPK9WGIH0I Q49XHUhbXREXF2dCEvFzNH 9NPEPQOkuTD4PPOGJDREEC RUxTLCBccGFyICAgICAgIC RGN95ABGBCTM4NMTfKKZxe TFjPE9VNI11PFBMkrudlAQ JcZnMyMiBTcmkgQmhhcmF0 bExvF6F2zVJfAFFUQxYGHC RpltpiGBA6h4qhiIStFYBh nPNiZrFqMCNaWKPlj5xsPR VmbGFuZzEwMzNcZnRuYmpc kJYqXBLzJcCog5dbm291uL Jab4kwSIEjFqS7aANzITHi kOpxrsd5sOsuCvUaGCOuh8 lzcyBcZmNoYXJzZXQwIEFy iPXsC655KCHfCAxgs0uip3 UrETXhpSAap9F1JBSPBZhm VhWcW162t2njk0hsufUxuR G0ZBRlZMX4HLsvujHzkpV2 SAjzkSHvTaY4NTosibUgEB zyihNerbLhKtl5XHLzC167 GHW3vYbwo2bbHUM5NFDnOT YyGqhyKa6btYRkY225IVHy WUJOOJBohDc1HFLzvtPhge PuwSTHs282T869u6xuYIOp biPqyQqLxlgoo8qrD953OE BhcGVydzEyMjQwXHBhcGVy zHK7HIXgVM3qluheMWmbJE fwQAYrhlL3QAYwiQOiD5Qw IEToAR4elmzcHGL8BUmaLT YhLKB8KkJvLNXbm7Arysw8 AqArrm3ilr69OAG7b0CkgN ldWKN7QVZ2GqSwSs1fjYJk IUVfFU5eRcEgwEGyVJKsmf 83lTipYFzurzKxqC8eQkEb QIMlkYQqPAKeFB4niKCnII XkcR7jnvweXREoHvNklpvd RHHpgSboogIzSw0qjHadZR V3SOikI9aufN9cNlQ3QDgd Y1evbR4mYXx0OWlqyQH8GZ McbX2qHK2zfwysc2zuQMhd XDbdPOAhbwA9apL9MPPxiA RkI3VxjA8vNBUySP7bfpep c7wxMYJ3CHhtIVAqNTD5Ce EaKSCgq0Fsjsn8HoPpt3Ae bZMoMWkyE81sj341DEQghy KoW2avbUGsjgzvrQLtilhq OQdvihO3JSMdQFIsLXefCG YxXGZzMjBcbGFuZzEwMzNc aGljaFxmMVxkYmNoXGYxXG rqC2ixNnMdQ2EuTJQiTfYf jHMmBDqlpOK5YAViJOFns8 8apGa1NFDrmebfu3SgYKDj bLKbxFDluZ8caaWxx5lcGZ IcMPFoMZTnP9ZgCLN1sVCw FVMmiUZefWL4CG7ycdDuZM 1hZGUgYnkgcmVzaWRlbnRz YNNqBMogi8rwLN6mEHRweF jlyK8vqUR9RCPlj2ceiSDe wCYhk2trb1AllcQoBDdfZV FtELbuGLVqMFRdXO6oWWUp oOLbdqSow0H1TcptoXLeag mpKxyerfU9BTgeqvidIWWl GQeqZ6jlWtXfLUTdxBuvPm pid3ViYJPoRWNvYrtofQQu fX0= Clinical Information 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] 2211925946) Gross Description (test w0oqbKGdLLLsuGVSBWFsNs code = 4948964894) gxnjNcOCQfoQQsZ0Agzmkg UFwxMO2vSR9blShgjBNplJ BkZL1AYQOrGzIzGALfoNIw hsNdIgCkWFBeyAOvuBA4OW JsQJ3qmyaoFVsuUApnZPEx ahZ0FSJesAUzR8AbGLWpMT 4ejdlyQVL6FBwyeT1yiyZF EjfxDh9wtTRihJgsPxHaVe NoYXJzZXQwXGZuaWwgQXJp IVh8dP6NZmdbMBW4PAHSIt yqEKPwVK5Lb7vlZLPmuVLr ZPV2HRldcKFaBCAxZFOgVZ l6TGXjUNptmQUaWH7yeFls FsivpZumv8JliGHjFWbwCP JrYRDtBJhsSQDcCK9SIuZr BZxSWWRxBEEsUoF6JKe0MW YMQyPyCkJgZFh8Hrt9TxRv XEg3UMp8QTxAAhSzSOO1My TiXkC4DQQ6OHFoGGyumNJi IFxcZiBBcmlhbCBcXGZzID DcYJnhNkehRMlaU56rtXdx uJ9bYnXjVKQTYmYTKIBWGF 1rwEYqGY8WZGGlCUqhPMUq jBADDHB7KP6wOUZKZvqofI MiBDZreBacGQopqF7eKL3B FWg9iuMfDFKjAmUsO3TeA5 klIG5nVGDttdQnXVNgoWPs ZCBmcmVzaCBhbmQgbGFiZW ieBDV3eHMdUCLaYCJyNQGe DC27M9AmbbDrBHnbGBewdf ZfRbSvRUCjoJJ8zSgnmJdj r6L9x618YLGzjCAteGWsPM 5nOWPit8jpgTFnPlOhsiVi A74ru3dctLCej9DlTQE2KL 2lgZlqziGkZHsoPG61EX0i EOOeFJpuBMVgd6BbOQl5Lg VuC10ivG4fhXObG8CyXWG5 IDQuMiBjbSBpbiBkaWFtZX Pxuatia3a2sZBsGCJ1b68j JUczIlbwjMCtBhTjA19aSF hnyoEiNSsjcAjvSUM4eJvz XCSdhMPwReT0ZG9nDrUlc2 1ac1pprwNmtrUcLUGahXXd jGEeSGWyf6PcnWhhvtHtEB IpqB1bOUJiHHDslSGyhT8f biBpcyBvcGVuIHRvIHJldm RmgUY9KV4pzKofruUskf6z m8a8IWGqceHvKFXzZKNuFF HalROni9JoTZSJREGzDHJz mcYevBv3NCRlSPB2fQ3kpd BfazRtj2FdvFu4jLXuIKjd QMEqAJLdxa55L9xzGFBuNV BhciANClxwYXIgDQpBMTog dWWiyEtjMRpvkGLjM2hcBH OuFLToNCIbpoIvbAr7KETf pNEzXS8OYCR9QDU7k17oIY AnWXFfUMRihtCmzLq5EDog WHTrXUhYKvpeKg01PZkuu3 YxqGnbfiSijtWkAF35XTCj usTveVAyKT0LRTRmplEVEr B2vQpfMOn6XCJ9UGgmABD3 rK4th4fph8BoGeXVw7Adw8 RaxzKls6P9CRVtiRbrgT6u ZF1wjixoILKjEQC3w2PpCZ NBYRhljEzsqH2oVBLgX89u q3BLd8CsZBDvUAeeo4wzfJ dkm2WgcISrHQqoEQZrmJWa HHfnfW2qBqQdc5srkAk9JG wxomR6DQXfws3CMpiedZ3y CmZwq5ciwIz8FBVRKhgcdw U8i1uwuHgvd9RjtSWiHP4T Cn0= Disclaimer (test code = [id number] [id number]) FuZzEwMzNcZnRuYmpcdWMx EMweakHbDLomj8MdC6VpIj AwMFxhbnNpXGRlZmxhbmcx ETHcHOU3xuJnYERwZVwvZA LoTFxvAt1liDJbuNwxCiSs FKUhe9thpdHNSWixWfDeM7 85WZTvTNrhd2iuo3KuTEIu sMUzg2U9JGDIeryheZy2xT cfJ02nt8C8YnbeJ8hcTECw MKAxR2GvXE1sIMUfYho7NM P8MTT5DDEhTWFeS4VtCE8v UIDspPEvSFd6u3cqbFobXF GzVNV4o7wcSWntgaKjIN4g ro1nqYq5d5krtzHbNGUhHG GpyEKWXDUgG7SxoSeiQh2k yCw4fFhbOqmuPDZ3Tzz9LP 0lrw16bmm2fDisPEMpfisq LcE4QVsfROPuqkwwGYn5DJ ukILVkxGK4QGHwyQFwQ2Qk KDWaHI9bmjm0JCG5RWmoSL ApFkI4BQPnzMCvSWJdcIce CPbgz968LGY9RfJiUB9iW8 Rfm7N8tL5eqTTiSBWoqIRz JtYwPLRsie5tyZOwIRgdd5 MzMVO0jlC4iFDgjEQhXROg WT02Pvmyz0EiXlydo7TfZ6 9gdGL4TTqpc7paLG5eXlY3 rkFqIXkeq3ltkR5sPcU4YS xbUZ2uQR4vZGNsbD5wcnbu XHBnYnJkcmhlYWRccGdicm TiXb0cmEjuLCI4ASlkF4xu lO4aAaL9WNrhD8txwL1mKT v3JWlttYQ2IKCchH3uNA7e fcgdi2xhFFouXGlhHJYkzz Y7qkQ7ELHcgBPiU0NftQ3e VCJtVH1szymgt7kiJRM7SR hiMMMnFBM8GgFgIZRwn1Ef ffr1TcEhr9UevTDiMBlbX2 5hr777YMKdwtKuG8xyeYRg eqlitACsrbfdUJhkbpH6IO ErmmZeh4CzYQNpMYK4SPci AOqwgDCjJNJpoJgwv7ikP6 RscGFyXHBsYWluXGYxXGZz MjBcbGFuZzEwMzNcaGljaF sfKWydZuEeEJLiPWmlJ0fe DsGbY0DgCNKjXmEslWFoA3 ggVGhpcyByZXBvcnQgbWF5 FXpgA0j1KYCeomHhcKb6lh GuTuXhWFIuVRK4GGihoSMr XUVru2UqcbuzfJNmBa0dsA AbUYNoxJ9jSQIwSGQhVYpw SD3fjZu4FODQkEVymBIeLu JXTKFkFS88vxGlLHMAhlgb l2O1CThjZPRxj1YaxFQbF4 juw9RfWGWhm46hAI1aw9K5 m7idAQZ8SE8xa0SsGDKrwC OodCWjTYVtg0Xtxhlaa0Ha LSXxsaSfb8YtKOJegsNswT WjHFWmjnHehb3gzjFqGGNd KEMaQ1RsrllnyBvvtiFhOR Amgp3fmkApASX2MPOWGTIv COOtn3IzzA7sfKBWCVU4yB Ggeo0hvdDPgJWrWHWqpj27 MAIzWP4xJ1zrIAPlIMZhsv BriEKoo5FiDFMpqDQ3lGZm CO2HVjEId04kHCZaGSWInr XdMCJhgFebdJE6ezQ4lH0b IChGREEpLlx+IFRoZSBGRE HrZO5zxoRab6MozpCwiOcf IGVhzCOji4XjhLHwd1AquW cuc2IktBYrcDPsJO7eUKZr clxwYXIgVVRNQiBMYWJvcm J4n4RpHSXuIHGlONH8oBpk vqp9FPXmiC0zFSKfZ4jotn ybSJlpTXTah4OaoM7sgHLZ ePBao7UoaUWrhHADbDDpIK 1fdfGgKBpYXOvNDZR9nxCh CRPqa7OgBSnlY4jgT45gyU eqeWs5mOQ6ZWT2nR2fVcf+ IFxwYXJccGFyIEFwcHJvcH WkLPMatHpifuXcS7TjddDc cF5vmZYphpFjXQ5gPG0nI6 Q9bZHzGUPfmeUpx2rlMXaj dmUgYmVlbiByZXZpZXdlZC Ehe5NsURxkIVT1OQbcotBi bmNsdWRpbmcgSCZFLCBTcG VrdNLhXLP6DXrwguZnewZj XX3rpR0qfLgnjS4fdOIgsB I5xrycANMsBAKeaKduJCIa WD5bcSLqSTMxqrELeOsczA AomP2fU4BqETNqAYRqwn6e OCDlkH3wANnus9XsnujaQH OoYNJvDZGejiGclu4uZPSu aXELNX1OTSyicNTbl5Yjxu SwD1sTCPA8LMYiJyBlAzrq NEAwgKIgjLYbQNMvrv77UM EstK3dyAzsZOXziC1bmO9w oEtrdD9xCnUsTlWgAMjsUV 9xJQWgN2ecmKHhPQDeEQUe B3ciVxKpoZ0keWccIQquUc EqGxZwWAtuKID3wJ== Embedded Images (test code = 2110220215) [facility] [id number] 09:01:06 Test Item Value Reference Range Interpretation Comments Blood Culture-Aerobic No organisms No growth Previo us (test code = 14996-3) isolated prelim inary verified result was Culture In Progress on 08/31/2021 at 060 1 CSTPrevious preliminary verified result was No growth a t 24 hours on 09/01/2021 at 030 1 CSTPrevious preliminary verified result was No growth a t 48 hours on 09/02/2021 at 03 01 CSTPrevious preliminary verified result was No growth a t 72 hours on 09/03/2021 at 03 01 [employer] Blood No organisms No growth Previous Culture-Anaerobic isolated preliminar y (test code = 23729-6) verifi ed result was Culture In Progress on 08/31/2021 at 060 1 CSTPrevious preliminary verified result was No growth a t 24 hours on 09/01/2021 at 030 1 CSTPrevious preliminary verified result was No growth a t 48 hours on 09/02/2021 at 03 01 CSTPrevious preliminary verified result was No growth a t 72 hours on 09/03/2021 at 03 01 [employer] Lab Interpretation Normal (test code = 75664-2) [facility] (NA, K, CL, CO2, GLUCOSE, BUN, CREATININE, CA)2021-09-04 13:22:54 Test Item Value Reference Range Interpretation Comments NA (test code = 132 mmol/L 135-145 L 9040672799) K (test code = 4.3 mmol/L 3.5-5.0 8711170558) CL (test code = 104 mmol/L 98-108 3825541959) CO2 TOTAL (test code = 23 mmol/L 23-31 0261191451) AGAP (test code = 2-16 8513000098) BUN (test code = 15 mg/dL 7-23 5795721707) GLUCOSE (test code = 96 mg/dL 70-110 7451587956) CREATININE (test code = 1.42 mg/dL 0.60-1.25 H 8711411630) CALCIUM (test code = 8.7 mg/dL 8.6-10.6 5063698275) eGFR (test code = mL/min/1.73m2 7329255174) GILBERTO (test code = GILBERTO) Association of [...] tests). Lab Interpretation Abnormal (test code = 26407-1) [facility] METABOLIC PANEL (NA, K, CL, CO2, GLUCOSE, BUN, CREATININE, CA)2021-09-04 13:22:54 Test Item Value Reference Range Interpretation Comments NA (test code = 132 mmol/L 135-145 L 0696470387) K (test code = 4.3 mmol/L 3.5-5.0 5566453977) CL (test code = 104 mmol/L 98-108 0800368304) CO2 TOTAL (test code = 23 mmol/L 23-31 6350629174) AGAP (test code = 2-16 5999112980) BUN (test code = 15 mg/dL 7-23 9298972868) GLUCOSE (test code = 96 mg/dL 70-110 4634255696) CREATININE (test code = 1.42 mg/dL 0.60-1.25 H 2910521078) CALCIUM (test code = 8.7 mg/dL 8.6-10.6 4919886868) eGFR (test code = mL/min/1.73m2 1949667311) GILBERTO (test code = GILBERTO) Association of [...] tests). Lab Interpretation Abnormal (test code = 76031-7) [facility] CULTURE [id number] 17:16:36 Test Item Value Reference Range Interpretation Comments Blood Culture Coagulase negative Addition al Workup (test Staphylococcus work-up perfo rmed code = 600-7) only per reque st. Culture plate(s ) will be saved until this date : - 09/08/21 Gram stain Isolated from aerobic (test code = bottle Gram positive 664-3) cocci in clusters [facility] CULTURE [id number] 17:16:36 Test Item Value Reference Range Interpretation Comments Blood Culture Coagulase negative Addition al Workup (test Staphylococcus work-up perfo rmed code = 600-7) only per reque st. Culture plate(s ) will be saved until this date : - 09/08/21 Gram stain Isolated from aerobic (test code = bottle Gram positive 664-3) cocci in clusters [facility] Culture - Peripheral Vein # 17:16:26 Test Item Value Reference Range Interpretation Comments Blood Culture-Aerobic Culture positive. No growth AA P revious (test code = 92663-5) See Blood Culture p reliminary Workup for verified result additional was Culture In information. Progress on 08/31/2021 at 060 1 [employer] Blood No organisms No growth Previous Culture-Anaerobic isolated preliminar y (test code = 68578-7) verifi ed result was Culture In Progress on 09/01/2021 at 012 7 [employer] Lab Interpretation Abnormal (test code = 02958-5) [facility] Culture - Peripheral Vein # 17:16:26 Test Item Value Reference Range Interpretation Comments Blood Culture-Aerobic Culture positive. No growth AA P revious (test code = 05584-8) See Blood Culture p reliminary Workup for verified result additional was Culture In information. Progress on 08/31/2021 at 060 1 [employer] Blood No organisms No growth Previous Culture-Anaerobic isolated preliminar y (test code = 62005-9) verifi ed result was Culture In Progress on 09/01/2021 at 012 7 [employer] Lab Interpretation Abnormal (test code = 00234-4) [facility] (NA, K, CL, CO2, GLUCOSE, BUN, CREATININE, CA)2021-09-03 12:16:04 Test Item Value Reference Range Interpretation Comments NA (test code = 130 mmol/L 135-145 L 5604608540) K (test code = 4.1 mmol/L 3.5-5.0 0734596157) CL (test code = 103 mmol/L 98-108 3181757262) CO2 TOTAL (test code = 21 mmol/L 23-31 L 5606259451) AGAP (test code = 2-16 2916218848) BUN (test code = 14 mg/dL 7-23 5666009416) GLUCOSE (test code = 90 mg/dL 70-110 7025829008) CREATININE (test code = 1.28 mg/dL 0.60-1.25 H 4249446684) CALCIUM (test code = 8.8 mg/dL 8.6-10.6 6530692564) eGFR (test code = mL/min/1.73m2 3644204064) GILBERTO (test code = GILBERTO) Association of [...] tests). Lab Interpretation Abnormal (test code = 82710-4) [facility] METABOLIC PANEL (NA, K, CL, CO2, GLUCOSE, BUN, CREATININE, CA)2021-09-03 12:16:04 Test Item Value Reference Range Interpretation Comments NA (test code = 130 mmol/L 135-145 L 7767904112) K (test code = 4.1 mmol/L 3.5-5.0 7578479077) CL (test code = 103 mmol/L 98-108 5532713182) CO2 TOTAL (test code = 21 mmol/L 23-31 L 7865576185) AGAP (test code = 2-16 8051830874) BUN (test code = 14 mg/dL 7-23 2929370541) GLUCOSE (test code = 90 mg/dL 70-110 5956557524) CREATININE (test code = 1.28 mg/dL 0.60-1.25 H 1914024732) CALCIUM (test code = 8.8 mg/dL 8.6-10.6 3947289621) eGFR (test code = mL/min/1.73m2 7038566684) GILBERTO (test code = GILBERTO) Association of [...] tests). Lab Interpretation Abnormal (test code = 54817-9) [facility] WITHOUT [id number] 11:53:39 Test Item Value Reference Range Interpretation Comments WBC (test code = 6690-2) See_Comment [A utomated message] The system [employer] generated this result transmit dain reference range : 4.20 - 10.70 10*3/?L. The reference range was not used to interpret this result as normal/abnormal . RBC (test code = 789-8) See_Comment L [Au tomated message] The system [employer] generated this result transmit dain reference range [...] 777-3) See_Comment [Au tomated message] The system [employer] generated this result transmit dain reference range : 150 - 328 10*3/?L. The reference range was not used to interpret this result as normal/abnormal . MPV (test code = 10.1 fL 9.8-13.0 88347-9) RDW-CV (test code = 13.5 % 12.1-15.4 788-0) RDW-SD (test code = 44.6 fL 38.5-51.6 06391-4) NRBC x10^3 (test code = <0.01 See_Comment [Au tomated message] 4046182617) The system [employer] generated this result transmit dain reference range : 10*3/?L. The reference range was not used to interpret this result as normal/abnormal . NRBC/100 WBC (test code See_Comment [Au tomated message] = 7931989616) The system [facility] generated this result transmit dain reference range : 0.0 - 10.0 /100 WBC s. The reference r meredith was not used to interpret this result as normal/abnormal . IPF % (test code = 8502085747) Lab Interpretation (test Abnormal code = 95715-5) [facility] WITHOUT [id number] 11:53:39 Test Item Value Reference Range Interpretation Comments WBC (test code = 6690-2) See_Comment [A utomated message] The system [employer] generated this result transmit dain reference range : 4.20 - 10.70 10*3/?L. The reference range was not used to interpret this result as normal/abnormal . RBC (test code = 789-8) See_Comment L [Au tomated message] The system [employer] generated this result transmit dain reference range [...] 777-3) See_Comment [Au tomated message] The system [employer] generated this result transmit dain reference range : 150 - 328 10*3/?L. The reference range was not used to interpret this result as normal/abnormal . MPV (test code = 10.1 fL 9.8-13.0 57498-1) RDW-CV (test code = 13.5 % 12.1-15.4 788-0) RDW-SD (test code = 44.6 fL 38.5-51.6 80992-7) NRBC x10^3 (test code = <0.01 See_Comment [Au tomated message] 3515967925) The system [employer] generated this result transmit dain reference range : 10*3/?L. The reference range was not used to interpret this result as normal/abnormal . NRBC/100 WBC (test code See_Comment [Au tomated message] = 9028712441) The system [employer] generated this result transmit dain reference range : 0.0 - 10.0 /100 WBC s. The reference r meredith was not used to interpret this result as normal/abnormal . IPF % (test code = 9096698242) Lab Interpretation (test Abnormal code = 61351-2) [facility] METABOLIC PANEL (NA, K, CL, CO2, GLUCOSE, BUN, CREATININE, CA)2021-09-02 12:06:01 Test Item Value Reference Range Interpretation Comments NA (test code = 132 mmol/L 135-145 L 2214979072) K (test code = 4.4 mmol/L 3.5-5.0 4998020875) CL (test code = 106 mmol/L 98-108 9622851653) CO2 TOTAL (test code = 22 mmol/L 23-31 L 7719803772) AGAP (test code = 2-16 0734282071) BUN (test code = 16 mg/dL 7-23 7028202465) GLUCOSE (test code = 83 mg/dL 70-110 8418682057) CREATININE (test code = 1.33 mg/dL 0.60-1.25 H 9385385193) CALCIUM (test code = 8.8 mg/dL 8.6-10.6 3313347743) eGFR (test code = mL/min/1.73m2 0427871618) GILBERTO (test code = GILBERTO) Association of [...] tests). Lab Interpretation Abnormal (test code = 25110-6) [facility] METABOLIC PANEL (NA, K, CL, CO2, GLUCOSE, BUN, CREATININE, CA)2021-09-02 12:06:01 Test Item Value Reference Range Interpretation Comments NA (test code = 132 mmol/L 135-145 L 6787699560) K (test code = 4.4 mmol/L 3.5-5.0 9164314772) CL (test code = 106 mmol/L 98-108 5086364993) CO2 TOTAL (test code = 22 mmol/L 23-31 L 6121301922) AGAP (test code = 2-16 3715910131) BUN (test code = 16 mg/dL 7-23 2122110462) GLUCOSE (test code = 83 mg/dL 70-110 1355837249) CREATININE (test code = 1.33 mg/dL 0.60-1.25 H 8368382498) CALCIUM (test code = 8.8 mg/dL 8.6-10.6 9112944269) eGFR (test code = mL/min/1.73m2 0284181937) GILBERTO (test code = GILBERTO) Association of [...] tests). Lab Interpretation Abnormal (test code = 09552-4) [facility] METABOLIC PANEL (NA, K, CL, CO2, GLUCOSE, BUN, CREATININE, CA)2021-09-01 21:55:22 Test Item Value Reference Range Interpretation Comments NA (test code = 130 mmol/L 135-145 L 2902999817) K (test code = 4.2 mmol/L 3.5-5.0 7081687135) CL (test code = 103 mmol/L 98-108 0856763282) CO2 TOTAL (test code = 20 mmol/L 23-31 L 7803076483) AGAP (test code = 2-16 4591542429) BUN (test code = 20 mg/dL 7-23 9835765969) GLUCOSE (test code = 106 mg/dL 70-110 7664159657) CREATININE (test code = 1.51 mg/dL 0.60-1.25 H 0096789915) CALCIUM (test code = 8.5 mg/dL 8.6-10.6 L 0134342880) eGFR (test code = mL/min/1.73m2 1958700122) GILBERTO (test code = GILBERTO) Association of [...] tests). Lab Interpretation Abnormal (test code = 78945-0) [facility] METABOLIC PANEL (NA, K, CL, CO2, GLUCOSE, BUN, CREATININE, CA)2021-09-01 21:55:22 Test Item Value Reference Range Interpretation Comments NA (test code = 130 mmol/L 135-145 L 2066251965) K (test code = 4.2 mmol/L 3.5-5.0 5334968854) CL (test code = 103 mmol/L 98-108 2935758031) CO2 TOTAL (test code = 20 mmol/L 23-31 L 0501232151) AGAP (test code = 2-16 4776527104) BUN (test code = 20 mg/dL 7-23 0246879278) GLUCOSE (test code = 106 mg/dL 70-110 4823719954) CREATININE (test code = 1.51 mg/dL 0.60-1.25 H 7225132953) CALCIUM (test code = 8.5 mg/dL 8.6-10.6 L 9290234279) eGFR (test code = mL/min/1.73m2 0903002210) GILBERTO (test code = GILBERTO) Association of [...] tests). Lab Interpretation Abnormal (test code = 96875-6) [facility]ENS DNA [id number] 10:31:32 Test Item Value Reference Range Interpretation Comments Coagulase Negative Positive Negative, See A Staphylococcus (test Comment/Narrative code = 65319-2) GILBERTO (test code = GILBERTO) Coagulase negative [...] contact the Antimicrobial Stewardship Program with questions.Pager: ?[phone] Testing included eleven identification and three resistance marker targets. Lab Interpretation Abnormal (test code = 33728-6) [facility]ENS DNA [id number] 10:31:32 Test Item Value Reference Range Interpretation Comments Coagulase Negative Positive Negative, See A Staphylococcus (test Comment/Narrative code = 91529-8) GILBERTO (test code = GILBERTO) Coagulase negative [...] contact the Antimicrobial Stewardship Program with questions.Pager: ?[phone] Testing included eleven identification and three resistance marker targets. Lab Interpretation Abnormal (test code = 44492-4) [facility] (NA, K, CL, CO2, GLUCOSE, BUN, CREATININE, CA)2021-09-01 08:38:47 Test Item Value Reference Range Interpretation Comments NA (test code = 130 mmol/L 135-145 L 6692144406) K (test code = 4.0 mmol/L 3.5-5.0 0376870985) CL (test code = 105 mmol/L 98-108 9498733530) CO2 TOTAL (test code = 20 mmol/L 23-31 L 4299113336) AGAP (test code = 2-16 1437480014) BUN (test code = 21 mg/dL 7-23 6210913164) GLUCOSE (test code = 88 mg/dL 70-110 9566014082) CREATININE (test code = 1.31 mg/dL 0.60-1.25 H 5597857617) CALCIUM (test code = 8.5 mg/dL 8.6-10.6 L 3783792690) eGFR (test code = mL/min/1.73m2 6820618533) GILBERTO (test code = GILBERTO) Association of [...] tests). Lab Interpretation Abnormal (test code = 25504-3) [facility] METABOLIC PANEL (NA, K, CL, CO2, GLUCOSE, BUN, CREATININE, CA)2021-09-01 08:38:47 Test Item Value Reference Range Interpretation Comments NA (test code = 130 mmol/L 135-145 L 7173099855) K (test code = 4.0 mmol/L 3.5-5.0 3460912771) CL (test code = 105 mmol/L 98-108 6523362902) CO2 TOTAL (test code = 20 mmol/L 23-31 L 4221288928) AGAP (test code = 2-16 5487224380) BUN (test code = 21 mg/dL 7-23 1744445968) GLUCOSE (test code = 88 mg/dL 70-110 6121453915) CREATININE (test code = 1.31 mg/dL 0.60-1.25 H 0531056910) CALCIUM (test code = 8.5 mg/dL 8.6-10.6 L 8030628685) eGFR (test code = mL/min/1.73m2 7743062151) GILBERTO (test code = GILBERTO) Association of [...] tests). Lab Interpretation Abnormal (test code = 48875-0) [facility] WITH [id number] 08:13:43 Test Item Value Reference Range Interpretation [...] RDW-SD (test code = 43.0 fL 38.5-51.6 68641-6) RDW-CV (test code = 13.7 % 12.1-15.4 788-0) PLT (test code = See_Comment [Automated 777-3) message] The sy stem which generated this result transmitted reference range : 150 - 328 10*3/ ?L. The reference r meredith was not used to interpret this result as normal/abnormal . MPV (test code = 9.9 fL 9.8-13.0 06113-3) NRBC/100 WBC (test See_Comment [Automat ed code = 6270082440) message] The system which generated this result transmitted reference range : 0.0 - 10.0 /100 WBCs. The refer ence range was not u sed to interpret th is result as normal/abnormal . NRBC x10^3 (test code <0.01 See_Comment [Auto mated = 7511206876) message] The s ystem which generated this result transmitted reference range : 10*3/?L. The reference range was not used to interpret this result as normal/abnormal . GRAN MAT (NEUT) % 48.2 % (test code = 770-8) IMM GRAN % (test code 0.40 % = 2617888659) LYMPH % (test code = 39.5 % 736-9) MONO % (test code = 9.0 % 5905-5) EOS % (test code = 2.3 % 713-8) BASO % (test code = 0.6 % 706-2) GRAN MAT x10^3(ANC) 2.35 10*3/uL 1.99-6.95 (test code = 7781173689) IMM GRAN x10^3 (test <0.03 0.00-0.06 code = 9180811446) LYMPH x10^3 (test code 1.93 10*3/uL 1.09-3.23 = 731-0) MONO x10^3 (test code 0.44 10*3/uL 0.36-1.02 = 742-7) EOS x10^3 (test code = 0.11 10*3/uL 0.06-0.53 711-2) BASO x10^3 (test code 0.03 10*3/uL 0.01-0.09 = 704-7) Lab Interpretation Abnormal (test code = 45362-4) [facility] WITH [id number] 08:13:43 Test Item Value Reference Range Interpretation Comments WBC (test code = See_Comment [Automated 8690-2) message] The sy stem which generated this result transmitted reference range : 4.20 - 10.70 10*3/?L. The reference range was not used to interpret this result as normal/abnormal . RBC (test code = See_Comment L [Automated 119-8) message] The sy stem which generated this [...] RDW-SD (test code = 43.0 fL 38.5-51.6 37522-1) RDW-CV (test code = 13.7 % 12.1-15.4 788-0) PLT (test code = See_Comment [Automated 777-3) message] The sy stem which generated this result transmitted reference range : 150 - 328 10*3/ ?L. The reference r meredith was not used to interpret this result as normal/abnormal . MPV (test code = 9.9 fL 9.8-13.0 40111-7) NRBC/100 WBC (test See_Comment [Automat ed code = 0974297142) message] The system which generated this result transmitted reference range : 0.0 - 10.0 /100 WBCs. The refer ence range was not u sed to interpret th is result as normal/abnormal . NRBC x10^3 (test code <0.01 See_Comment [Auto mated = 3613279347) message] The s ystem which generated this result transmitted reference range : 10*3/?L. The reference range was not used to interpret this result as normal/abnormal . GRAN MAT (NEUT) % 48.2 % (test code = 770-8) IMM GRAN % (test code 0.40 % = 1792965091) LYMPH % (test code = 39.5 % 736-9) MONO % (test code = 9.0 % 5905-5) EOS % (test code = 2.3 % 713-8) BASO % (test code = 0.6 % 706-2) GRAN MAT x10^3(ANC) 2.35 10*3/uL 1.99-6.95 (test code = 2280531021) IMM GRAN x10^3 (test <0.03 0.00-0.06 code = 0953960070) LYMPH x10^3 (test code 1.93 10*3/uL 1.09-3.23 = 731-0) MONO x10^3 (test code 0.44 10*3/uL 0.36-1.02 = 742-7) EOS x10^3 (test code = 0.11 10*3/uL 0.06-0.53 711-2) BASO x10^3 (test code 0.03 10*3/uL 0.01-0.09 = 704-7) Lab Interpretation Abnormal (test code = 11409-6) [facility] [id number] 06:37:20 Test Item Value Reference Range Interpretation Comments MAGNESIUM (test code = 2710922476) 1.9 mg/dL 1.7-2.4 Lab Interpretation (test code = Normal 20649-9) [facility] [id number] 06:37:20 Test Item Value Reference Range Interpretation Comments MAGNESIUM (test code = 6239185156) 1.9 mg/dL 1.7-2.4 Lab Interpretation (test code = Normal 35538-9) [facility] METABOLIC PANEL (NA, K, CL, CO2, GLUCOSE, BUN, CREATININE, CA)2021-09-01 02:46:47 Test Item Value Reference Range Interpretation Comments NA (test code = 132 mmol/L 135-145 L 9705431112) K (test code = 4.0 mmol/L 3.5-5.0 6027918305) CL (test code = 102 mmol/L 98-108 4812337544) CO2 TOTAL (test code = 21 mmol/L 23-31 L 9294824780) AGAP (test code = 2-16 4122903044) BUN (test code = 24 mg/dL 7-23 H 6270181077) GLUCOSE (test code = 95 mg/dL 70-110 8827724691) CREATININE (test code = 1.40 mg/dL 0.60-1.25 H 3427480426) CALCIUM (test code = 8.6 mg/dL 8.6-10.6 4270700423) eGFR (test code = mL/min/1.73m2 2236913557) GILBERTO (test code = GILBERTO) Association of [...] tests). Lab Interpretation Abnormal (test code = 07978-3) [facility] (NA, K, CL, CO2, GLUCOSE, BUN, CREATININE, CA)2021-09-01 02:46:47 Test Item Value Reference Range Interpretation Comments NA (test code = 132 mmol/L 135-145 L 7692756456) K (test code = 4.0 mmol/L 3.5-5.0 1912722361) CL (test code = 102 mmol/L 98-108 3909642684) CO2 TOTAL (test code = 21 mmol/L 23-31 L 6558534388) AGAP (test code = 2-16 4467429836) BUN (test code = 24 mg/dL 7-23 H 5690194759) GLUCOSE (test code = 95 mg/dL 70-110 0993117408) CREATININE (test code = 1.40 mg/dL 0.60-1.25 H 2394284138) CALCIUM (test code = 8.6 mg/dL 8.6-10.6 2788322922) eGFR (test code = mL/min/1.73m2 8371416772) GILBERTO (test code = GILBERTO) Association of [...] tests). Lab Interpretation Abnormal (test code = 99428-2) [facility] [id number] 12:49:48 Test Item Value Reference Range Interpretation Comments LACTIC ACID (test code = 2.02 mmol/L 0.50-2.20 QUE S 6879715527) Lab Interpretation (test code = Normal 85330-9) [facility] [id number] 12:49:48 Test Item Value Reference Range Interpretation Comments LACTIC ACID (test code = 2.02 mmol/L 0.50-2.20 QUE S 4667014171) Lab Interpretation (test code = Normal 59927-3) [facility] (NA, K, CL, CO2, GLUCOSE, BUN, CREATININE, CA)2021-08-31 12:29:06 Test Item Value Reference Range Interpretation Comments NA (test code = 129 mmol/L 135-145 L 2129503111) K (test code = 3.6 mmol/L 3.5-5.0 8165808847) CL (test code = 101 mmol/L 98-108 5675687539) CO2 TOTAL (test code = 18 mmol/L 23-31 L 9042784359) AGAP (test code = 2-16 8135402480) BUN (test code = 35 mg/dL 7-23 H 8300350397) GLUCOSE (test code = 97 mg/dL 70-110 1682955475) CREATININE (test code = 1.58 mg/dL 0.60-1.25 H 3361326602) CALCIUM (test code = 8.3 mg/dL 8.6-10.6 L 8637627632) eGFR (test code = mL/min/1.73m2 8079620475) GILBERTO (test code = GILBERTO) Association of [...] tests). Lab Interpretation Abnormal (test code = 99200-1) [facility] METABOLIC PANEL (NA, K, CL, CO2, GLUCOSE, BUN, CREATININE, CA)2021-08-31 12:29:06 Test Item Value Reference Range Interpretation Comments NA (test code = 129 mmol/L 135-145 L 4213508045) K (test code = 3.6 mmol/L 3.5-5.0 9773649809) CL (test code = 101 mmol/L 98-108 9723040024) CO2 TOTAL (test code = 18 mmol/L 23-31 L 9989067705) AGAP (test code = 2-16 9379622194) BUN (test code = 35 mg/dL 7-23 H 1252019999) GLUCOSE (test code = 97 mg/dL 70-110 2331732056) CREATININE (test code = 1.58 mg/dL 0.60-1.25 H 7659534779) CALCIUM (test code = 8.3 mg/dL 8.6-10.6 L 5126648033) eGFR (test code = mL/min/1.73m2 4287894409) GILBERTO (test code = GILBERTO) Association of [...] tests). Lab Interpretation Abnormal (test code = 09505-5) [facility] [id number] 07:42:44 Test Item Value Reference Range Interpretation Comments TSH (test code = See_Comment [Automated message] 3745343602) The system [employer] generated this result transmitted ref erence range: 0.45 - 4 .70 mIU/L. The refe rence range was not u sed to interpret this result as normal/abnor mal. Lab Interpretation (test Normal code = 50061-1) [facility] [id number] 07:42:44 Test Item Value Reference Range Interpretation Comments TSH (test code = See_Comment [Automated message] [id number]) The system St[employer] generated this result transmitted ref erence range: 0.45 - 4 .70 mIU/L. The refe rence range was not u sed to interpret this result as normal/abnor mal. Lab Interpretation (test Normal code = 43704-8) [facility] METABOLIC PANEL (NA, K, CL, CO2, GLUCOSE, BUN, CREATININE, CA)2021-08-31 07:40:43 Test Item Value Reference Range Interpretation Comments NA (test code = 129 mmol/L 135-145 L [id number]) K (test code = 3.8 mmol/L 3.5-5.0 Slight [id number]) hemolysis CL (test code = 102 mmol/L 98-108 8031640071) CO2 TOTAL (test code 18 mmol/L 23-31 L = 3129067229) AGAP (test code = 2-16 [id number]) BUN (test code = 46 mg/dL 7-23 H Slight [id number]) hemolysis GLUCOSE (test code = 100 mg/dL 70-110 4317348570) CREATININE (test code 1.72 mg/dL 0.60-1.25 H = [id number]) CALCIUM (test code = 8.5 mg/dL 8.6-10.6 L [id number]) eGFR (test code = mL/min/1.73m2 [id number]) GILBERTO (test code = GILBERTO) Association of [...] tests). Lab Interpretation Abnormal (test code = 71567-8) [facility] (NA, K, CL, CO2, GLUCOSE, BUN, CREATININE, CA)2021-08-31 07:40:43 Test Item Value Reference Range Interpretation Comments NA (test code = 129 mmol/L 135-145 L 9301225739) K (test code = 3.8 mmol/L 3.5-5.0 Slight 0126969840) hemolysis CL (test code = 102 mmol/L 98-108 3423491989) CO2 TOTAL (test code 18 mmol/L 23-31 L = 1927363913) AGAP (test code = 2-16 3137548911) BUN (test code = 46 mg/dL 7-23 H Slight 6558292552) hemolysis GLUCOSE (test code = 100 mg/dL 70-110 5292967962) CREATININE (test code 1.72 mg/dL 0.60-1.25 H = 3226987117) CALCIUM (test code = 8.5 mg/dL 8.6-10.6 L 2460896375) eGFR (test code = mL/min/1.73m2 6310502002) GILBERTO (test code = GILBERTO) Association of [...] tests). Lab Interpretation Abnormal (test code = 04714-0) [facility] BranchLactic Acid Whole [id number] 07:08:01 Test Item Value Reference Range Interpretation Comments LACTIC ACID (test code = 1.96 mmol/L 0.50-2.20 QUE S 4896490247) Lab Interpretation (test code = Normal 42201-3) [facility] BranchLactic Acid Whole [id number] 07:08:01 Test Item Value Reference Range Interpretation Comments LACTIC ACID (test code = 1.96 mmol/L 0.50-2.20 QUE S 5458273737) Lab Interpretation (test code = Normal 32461-8) [facility] OR [id number] 06:33:43 Test Item Value Reference Range Interpretation Comments OSMOLALITY (test code = See_Comment [Au tomated message] 8289342317) The system Sticky generated this result transmitted ref erence range: 278 - 30 5 mOsm/kg. The re ference range was not u sed to interpret this result as normal/abnor mal. Lab Interpretation (test Normal code = 79958-2) [facility], SERUM OR [id number] 06:33:43 Test Item Value Reference Range Interpretation Comments OSMOLALITY (test code = See_Comment [Au tomated message] 4035278530) The system Sticky generated this result transmitted ref erence range: 278 - 30 5 mOsm/kg. The re ference range was not u sed to interpret this result as normal/abnor mal. Lab Interpretation (test Normal code = 02948-7) [id number] 04:28[facility]44 Test Item Value Reference Interpretation Comments Range TROPONIN I (test 0.003 ng/mL See_Comment [Automated code = 1546527501) message] The system which generated this result [...] biotin. Lab Interpretation Normal (test code = 11448-7) [facility] [id number] 04:28:44 Test Item Value Reference Interpretation Comments Range TROPONIN I (test 0.003 ng/mL See_Comment [Automated code = 7500224411) message] The system which generated this result [...] biotin. Lab Interpretation Normal (test code = 25542-0) [facility] (NA, K, CL, CO2, GLUCOSE, BUN, CREATININE, CA)2021-08-31 04:07:42 Test Item Value Reference Range Interpretation Comments NA (test code = 125 mmol/L 135-145 L 3105903356) K (test code = 4.1 mmol/L 3.5-5.0 Slight 5719003454) hemolysis CL (test code = 100 mmol/L 98-108 6903897135) CO2 TOTAL (test code 17 mmol/L 23-31 L = 2658996156) AGAP (test code = 2-16 7790841914) BUN (test code = 52 mg/dL 7-23 H Slight 1790914425) hemolysis GLUCOSE (test code = 94 mg/dL 70-110 2656151115) CREATININE (test code 1.77 mg/dL 0.60-1.25 H = 0526664694) CALCIUM (test code = 8.2 mg/dL 8.6-10.6 L 6319725497) eGFR (test code = mL/min/1.73m2 7590749595) GILBERTO (test code = GILBERTO) Association of [...] tests). Lab Interpretation Abnormal (test code = 02338-3) [facility] (NA, K, CL, CO2, GLUCOSE, BUN, CREATININE, CA)2021-08-31 04:07:42 Test Item Value Reference Range Interpretation Comments NA (test code = 125 mmol/L 135-145 L 2718024994) K (test code = 4.1 mmol/L 3.5-5.0 Slight 7158188706) hemolysis CL (test code = 100 mmol/L 98-108 4370180325) CO2 TOTAL (test code 17 mmol/L 23-31 L = 7396614722) AGAP (test code = 2-16 2553495785) BUN (test code = 52 mg/dL 7-23 H Slight 2295018043) hemolysis GLUCOSE (test code = 94 mg/dL 70-110 2633396488) CREATININE (test code 1.77 mg/dL 0.60-1.25 H = 3220160598) CALCIUM (test code = 8.2 mg/dL 8.6-10.6 L 6678067525) eGFR (test code = mL/min/1.73m2 4221580535) GILBERTO (test code = GILBERTO) Association of [...] tests). Lab Interpretation Abnormal (test code = 81795-0) [facility]AT[facility] [id number] 00:22:59 Test Item Value Reference Interpretation Comments Range TROPONIN I (test 0.003 ng/mL See_Comment [Automated code = 5062639534) message] The system which generated this result [...] biotin. Lab Interpretation Normal (test code = 59575-2) [facility]-[id number] 00:22:59 Test Item Value Reference Range Interpretation Comments NT-proBNP (test code 55 pg/mL See_Comment [Autom ated = 1964814579) message] The system which generated this result transmitted reference range : <=125. The reference range was not used to interpret this result as normal/abnormal . GILBERTO (test code = GILBERTO) Biotin has been reported to cause a negative bias, interpret results relative to patient's use of biotin. Lab Interpretation Normal (test code = 13658-7) [facility] [id number] 00:22:59 Test Item Value Reference Interpretation Comments Range TROPONIN I (test 0.003 ng/mL See_Comment [Automated code = 8215817222) message] The system which generated this result [...] biotin. Lab Interpretation Normal (test code = 95812-5) [facility] KEL-[id number] 00:22:59 Test Item Value Reference Range Interpretation Comments NT-proBNP (test code 55 pg/mL See_Comment [Autom ated = 7399578272) message] The system which generated this result transmitted reference range : <=125. The reference range was not used to interpret this result as normal/abnormal . GILBERTO (test code = GILBERTO) Biotin has been reported to cause a negative bias, interpret results relative to patient's use of biotin. Lab Interpretation Normal (test code = 63478-1) [facility]. METABOLIC PANEL ([id number])2021-08-31 00:07:17 Test Item Value Reference Range Interpretation Comments NA (test code = 126 mmol/L 135-145 L 3091403043) K (test code = 4.3 mmol/L 3.5-5.0 Slight 9342547870) hemolysis CL (test code = 96 mmol/L 98-108 L 8779936127) CO2 TOTAL (test code 18 mmol/L 23-31 L = 2318039610) AGAP (test code = 2-16 2962036068) BUN (test code = 58 mg/dL 7-23 H Slight 5171917996) hemolysis GLUCOSE (test code = 108 mg/dL 70-110 3178855844) CREATININE (test code 2.11 mg/dL 0.60-1.25 H = 6122060927) TOTAL BILI (test code 0.7 mg/dL 0.1-1.1 = 1642062567) CALCIUM (test code = 9.2 mg/dL 8.6-10.6 4224026542) T PROTEIN (test code 7.6 g/dL 6.3-8.2 = 5174708219) ALBUMIN (test code = 4.9 g/dL 3.5-5.0 7185643180) ALK PHOS (test code = 96 U/L 34-122 Slight 8862928905) hemolysis ALTv (test code = 27 U/L 5-50 1742-6) AST(SGOT) (test code 46 U/L 13-40 H Slight = 9889883641) hemolysis eGFR (test code = mL/min/1.73m2 8044269053) GILBERTO (test code = GILBERTO) Association of [...] tests). Lab Interpretation Abnormal (test code = 76008-7) [facility] METABOLIC PANEL (98061)2021-08-31 00:07:17 Test Item Value Reference Range Interpretation Comments NA (test code = 126 mmol/L 135-145 L 3305752327) K (test code = 4.3 mmol/L 3.5-5.0 Slight 0004341332) hemolysis CL (test code = 96 mmol/L 98-108 L 1958918314) CO2 TOTAL (test code 18 mmol/L 23-31 L = 2423417781) AGAP (test code = 2-16 8493173719) BUN (test code = 58 mg/dL 7-23 H Slight 3867403723) hemolysis GLUCOSE (test code = 108 mg/dL 70-110 8102402255) CREATININE (test code 2.11 mg/dL 0.60-1.25 H = 8538806046) TOTAL BILI (test code 0.7 mg/dL 0.1-1.1 = 9097623402) CALCIUM (test code = 9.2 mg/dL 8.6-10.6 0706093734) T PROTEIN (test code 7.6 g/dL 6.3-8.2 = 3613493577) ALBUMIN (test code = 4.9 g/dL 3.5-5.0 2104811560) ALK PHOS (test code = 96 U/L 34-122 Slight 4678024143) hemolysis ALTv (test code = 27 U/L 5-50 1742-6) AST(SGOT) (test code 46 U/L 13-40 H Slight = 8672267914) hemolysis eGFR (test code = mL/min/1.73m2 8666550895) GILBERTO (test code = GILBERTO) Association of [...] tests). Lab Interpretation Abnormal (test code = 59754-4) [facility] WITH [id number] 23:36:10 Test Item Value Reference Range Interpretation Comments WBC (test code = See_Comment [Automated 8090-2) message] The sy stem which generated this [...] RDW-SD (test code = 41.7 fL 38.5-51.6 59594-1) RDW-CV (test code = 13.4 % 12.1-15.4 788-0) PLT (test code = See_Comment [Automated 777-3) message] The sy stem which generated this result transmitted reference range : 150 - 328 10*3/ ?L. The reference r meredith was not used to interpret this result as normal/abnormal . MPV (test code = 10.3 fL 9.8-13.0 46761-1) NRBC/100 WBC (test See_Comment [Automat ed code = 7706219963) message] The system which generated this result transmitted reference range : 0.0 - 10.0 /100 WBCs. The refer ence range was not u sed to interpret th is result as normal/abnormal . NRBC x10^3 (test code <0.01 See_Comment [Auto mated = 0246921031) message] The s ystem which generated this result transmitted reference range : 10*3/?L. The reference range was not used to interpret this result as normal/abnormal . GRAN MAT (NEUT) % 60.6 % (test code = 770-8) IMM GRAN % (test code 0.30 % = 3586071537) LYMPH % (test code = 29.1 % 736-9) MONO % (test code = 8.8 % 5905-5) EOS % (test code = 0.6 % 713-8) BASO % (test code = 0.6 % 706-2) GRAN MAT x10^3(ANC) 4.08 10*3/uL 1.99-6.95 (test code = 0631819911) IMM GRAN x10^3 (test <0.03 0.00-0.06 code = 9618125979) LYMPH x10^3 (test code 1.96 10*3/uL 1.09-3.23 = 731-0) MONO x10^3 (test code 0.59 10*3/uL 0.36-1.02 = 742-7) EOS x10^3 (test code = 0.04 10*3/uL 0.06-0.53 L 711-2) BASO x10^3 (test code 0.04 10*3/uL 0.01-0.09 = 704-7) Lab Interpretation Abnormal (test code = 95983-1) [facility] WITH [id number] 23:36:10 Test Item Value Reference Range Interpretation [...] RDW-SD (test code = 41.7 fL 38.5-51.6 85340-0) RDW-CV (test code = 13.4 % 12.1-15.4 788-0) PLT (test code = See_Comment [Automated 777-3) message] The sy stem which generated this result transmitted reference range : 150 - 328 10*3/ ?L. The reference r meredith was not used to interpret this result as normal/abnormal . MPV (test code = 10.3 fL 9.8-13.0 69775-0) NRBC/100 WBC (test See_Comment [Automat ed code = 8752144129) message] The system which generated this result transmitted reference range : 0.0 - 10.0 /100 WBCs. The refer ence range was not u sed to interpret th is result as normal/abnormal . NRBC x10^3 (test code <0.01 See_Comment [Auto mated = 1360653912) message] The s ystem which generated this result transmitted reference range : 10*3/?L. The reference range was not used to interpret this result as normal/abnormal . GRAN MAT (NEUT) % 60.6 % (test code = 770-8) IMM GRAN % (test code 0.30 % = 1252930119) LYMPH % (test code = 29.1 % 736-9) MONO % (test code = 8.8 % 5905-5) EOS % (test code = 0.6 % 713-8) BASO % (test code = 0.6 % 706-2) GRAN MAT x10^3(ANC) 4.08 10*3/uL 1.99-6.95 (test code = 8521925921) IMM GRAN x10^3 (test <0.03 0.00-0.06 code = 9646505750) LYMPH x10^3 (test code 1.96 10*3/uL 1.09-3.23 = 731-0) MONO x10^3 (test code 0.59 10*3/uL 0.36-1.02 = 742-7) EOS x10^3 (test code = 0.04 10*3/uL 0.06-0.53 L 711-2) BASO x10^3 (test code 0.04 10*3/uL 0.01-0.09 = 704-7) Lab Interpretation Abnormal (test code = 66736-3) [facility] FOR GROUP [id number] 00:24:00 Test Item Value Reference Range Interpretation Comments POCT GP A STREP (test code = Negative Negative - Negative 55225-1) Lab Interpretation (test code = Normal 11373-8) [facility]2021-[facility]-13 11:38:43 Test Item Value Reference Range Interpretation Comments PALB (test code = 95794-5) 25.2 mg/dL 18.0-45.0 Lab Interpretation (test code = Normal 01742-4) [facility] (NA, K, CL, CO2, GLUCOSE, BUN, CREATININE, CA)2021-08-05 11:30:59 Test Item Value Reference Range Interpretation Comments NA (test code = 140 mmol/L 135-145 4693328086) K (test code = 4.2 mmol/L 3.5-5.0 4002098334) CL (test code = 110 mmol/L 98-108 H 9508217774) CO2 TOTAL (test code = 27 mmol/L 23-31 8634646619) AGAP (test code = 2-16 5770029872) BUN (test code = 9 mg/dL 7-23 2771586883) GLUCOSE (test code = 86 mg/dL 70-110 1074473987) CREATININE (test code = 1.51 mg/dL 0.60-1.25 H 5142278478) CALCIUM (test code = 8.5 mg/dL 8.6-10.6 L 9417007016) eGFR (test code = mL/min/1.73m2 4019122871) GILBERTO (test code = GILBERTO) Association of [...] tests). Lab Interpretation Abnormal (test code = 29889-9) [facility]2021-[facility]-13 11:30:59 Test Item Value Reference Range Interpretation Comments MAGNESIUM (test code = 6743861692) 2.0 mg/dL 1.7-2.4 Lab Interpretation (test code = Normal 58412-9) [facility]2021-[facility]-13 11:30:59 Test Item Value Reference Range Interpretation Comments PHOSPHORUS (test code = 6809176135) 5.1 mg/dL 2.5-5.0 H Lab Interpretation (test code = Abnormal 39344-8) [facility] 11:30:59 Test Item Value Reference Range Interpretation Comments ALBUMIN (test code = 2854576621) 3.1 g/dL 3.5-5.0 L Lab Interpretation (test code = Abnormal 98841-4) [facility] WITH [id number] 11:05:58 Test Item Value Reference Range Interpretation [...] RDW-SD (test code = 47.5 fL 38.5-51.6 27279-7) RDW-CV (test code = 14.0 % 12.1-15.4 788-0) PLT (test code = See_Comment [Automated 777-3) message] The sy stem which generated this result transmitted reference range : 150 - 328 10*3/ ?L. The reference r meredith was not used to interpret this result as normal/abnormal . MPV (test code = 9.5 fL 9.8-13.0 L 37963-4) NRBC/100 WBC (test See_Comment [Automat ed code = 4903096503) message] The system which generated this result transmitted reference range : 0.0 - 10.0 /100 WBCs. The refer ence range was not u sed to interpret th is result as normal/abnormal . NRBC x10^3 (test code <0.01 See_Comment [Auto mated = 3502989384) message] The s ystem which generated this result transmitted reference range : 10*3/?L. The reference range was not used to interpret this result as normal/abnormal . GRAN MAT (NEUT) % 52.5 % (test code = 770-8) IMM GRAN % (test code 0.30 % = 3511199191) LYMPH % (test code = 31.1 % 736-9) MONO % (test code = 11.7 % 5905-5) EOS % (test code = 3.9 % 713-8) BASO % (test code = 0.5 % 706-2) GRAN MAT x10^3(ANC) 2.03 10*3/uL 1.99-6.95 (test code = 5905861727) IMM GRAN x10^3 (test <0.03 0.00-0.06 code = 0325573453) LYMPH x10^3 (test code 1.20 10*3/uL 1.09-3.23 = 731-0) MONO x10^3 (test code 0.45 10*3/uL 0.36-1.02 = 742-7) EOS x10^3 (test code = 0.15 10*3/uL 0.06-0.53 711-2) BASO x10^3 (test code <0.03 0.01-0.09 = 704-7) Lab Interpretation Abnormal (test code = 86106-7) [facility] WITH [id number] 12:30:17 Test Item Value Reference Range Interpretation Comments WBC (test code = See_Comment L [Automated 2690-2) message] The sy stem which generated this result transmitted reference range : 4.20 - 10.70 10*3/?L. The reference range was not used to interpret this result as normal/abnormal . RBC (test code = See_Comment L [Automated 219-8) message] The sy stem which generated this [...] RDW-SD (test code = 49.2 fL 38.5-51.6 52505-9) RDW-CV (test code = 14.3 % 12.1-15.4 788-0) PLT (test code = See_Comment [Automated 777-3) message] The sy stem which generated this result transmitted reference range : 150 - 328 10*3/ ?L. The reference r meredith was not used to interpret this result as normal/abnormal . MPV (test code = 9.2 fL 9.8-13.0 L 56943-0) NRBC/100 WBC (test See_Comment [Automat ed code = 4683767813) message] The system which generated this result transmitted reference range : 0.0 - 10.0 /100 WBCs. The refer ence range was not u sed to interpret th is result as normal/abnormal . NRBC x10^3 (test code <0.01 See_Comment [Auto mated = 6510389732) message] The s ystem which generated this result transmitted reference range : 10*3/?L. The reference range was not used to interpret this result as normal/abnormal . GRAN MAT (NEUT) % 47.2 % (test code = 770-8) IMM GRAN % (test code 0.30 % = 8461017608) LYMPH % (test code = 36.0 % 736-9) MONO % (test code = 12.6 % 5905-5) EOS % (test code = 3.4 % 713-8) BASO % (test code = 0.5 % 706-2) GRAN MAT x10^3(ANC) 1.80 10*3/uL 1.99-6.95 L (test code = 1426897089) IMM GRAN x10^3 (test <0.03 0.00-0.06 code = 5401468090) LYMPH x10^3 (test code 1.37 10*3/uL 1.09-3.23 = 731-0) MONO x10^3 (test code 0.48 10*3/uL 0.36-1.02 = 742-7) EOS x10^3 (test code = 0.13 10*3/uL 0.06-0.53 711-2) BASO x10^3 (test code <0.03 0.01-0.09 = 704-7) Lab Interpretation Abnormal (test code = 04430-6) [facility] METABOLIC PANEL (NA, K, CL, CO2, GLUCOSE, BUN, CREATININE, CA)2021-08-04 12:17:48 Test Item Value Reference Range Interpretation Comments NA (test code = 139 mmol/L 135-145 7819158804) K (test code = 4.3 mmol/L 3.5-5.0 2840667035) CL (test code = 110 mmol/L 98-108 H 2234008120) CO2 TOTAL (test code = 26 mmol/L 23-31 4298535795) AGAP (test code = 2-16 1886393444) BUN (test code = 8 mg/dL 7-23 6167318506) GLUCOSE (test code = 87 mg/dL 70-110 8835585247) CREATININE (test code = 1.50 mg/dL 0.60-1.25 H 8197278172) CALCIUM (test code = 8.4 mg/dL 8.6-10.6 L 0379616435) eGFR (test code = mL/min/1.73m2 4795992119) GILBERTO (test code = GILBERTO) Association of [...] tests). Lab Interpretation Abnormal (test code = 23335-7) [facility] 12:17[facility] Test Item Value Reference Range Interpretation Comments MAGNESIUM (test code = 4952448176) 1.9 mg/dL 1.7-2.4 Lab Interpretation (test code = Normal 54171-6) [facility] 12:17:48 Test Item Value Reference Range Interpretation Comments PHOSPHORUS (test code = 1233355596) 4.6 mg/dL 2.5-5.0 Lab Interpretation (test code = Normal 25500-2) [facility] [id number] 11:23:38 Test Item Value Reference Range Interpretation [...] RDW-SD (test code = 47.8 fL 38.5-51.6 47880-5) RDW-CV (test code = 14.1 % 12.1-15.4 788-0) PLT (test code = See_Comment [Automated 777-3) message] The sy stem which generated this result transmitted reference range : 150 - 328 10*3/ ?L. The reference r meredith was not used to interpret this result as normal/abnormal . MPV (test code = 9.3 fL 9.8-13.0 L 46737-6) NRBC/100 WBC (test See_Comment [Automat ed code = 1212393019) message] The system which generated this result transmitted reference range : 0.0 - 10.0 /100 WBCs. The refer ence range was not u sed to interpret th is result as normal/abnormal . NRBC x10^3 (test code <0.01 See_Comment [Auto mated = 4145433618) message] The s ystem which generated this result transmitted reference range : 10*3/?L. The reference range was not used to interpret this result as normal/abnormal . GRAN MAT (NEUT) % 49.3 % (test code = 770-8) IMM GRAN % (test code 0.30 % = 5226970312) LYMPH % (test code = 34.6 % 736-9) MONO % (test code = 12.0 % 5905-5) EOS % (test code = 3.3 % 713-8) BASO % (test code = 0.5 % 706-2) GRAN MAT x10^3(ANC) 1.97 10*3/uL 1.99-6.95 L (test code = 9259459973) IMM GRAN x10^3 (test <0.03 0.00-0.06 code = 3908640595) LYMPH x10^3 (test code 1.38 10*3/uL 1.09-3.23 = 731-0) MONO x10^3 (test code 0.48 10*3/uL 0.36-1.02 = 742-7) EOS x10^3 (test code = 0.13 10*3/uL 0.06-0.53 711-2) BASO x10^3 (test code <0.03 0.01-0.09 = 704-7) Lab Interpretation Abnormal (test code = 37601-9) [facility] METABOLIC PANEL (NA, K, CL, CO2, GLUCOSE, BUN, CREATININE, CA)2021-08-03 11:18:55 Test Item Value Reference Range Interpretation Comments NA (test code = 139 mmol/L 135-145 0419334339) K (test code = 4.1 mmol/L 3.5-5.0 8632563565) CL (test code = 110 mmol/L 98-108 H 4240781884) CO2 TOTAL (test code = 27 mmol/L 23-31 1896336831) AGAP (test code = 2-16 1733036057) BUN (test code = 8 mg/dL 7-23 3626523331) GLUCOSE (test code = 93 mg/dL 70-110 4735064203) CREATININE (test code = 1.39 mg/dL 0.60-1.25 H 3071153810) CALCIUM (test code = 8.1 mg/dL 8.6-10.6 L 9988711577) eGFR (test code = mL/min/1.73m2 5592935134) GILBERTO (test code = GILBERTO) Association of [...] tests). Lab Interpretation Abnormal (test code = 78160-7) [facility] Test Item Value Reference Range Interpretation Comments MAGNESIUM (test code = 0010349841) 2.0 mg/dL 1.7-2.4 Lab Interpretation (test code = Normal 89542-7) [facility] 11:18:55 Test Item Value Reference Range Interpretation Comments PHOSPHORUS (test code = 5660732773) 3.8 mg/dL 2.5-5.0 Lab Interpretation (test code = Normal 85444-1) [facility] (NA, K, CL, CO2, GLUCOSE, BUN, CREATININE, CA)2021-08-02 14:06:51 Test Item Value Reference Range Interpretation Comments NA (test code = 137 mmol/L 135-145 8689712487) K (test code = 4.4 mmol/L 3.5-5.0 1359393423) CL (test code = 108 mmol/L 98-108 6344525096) CO2 TOTAL (test code = 24 mmol/L 23-31 0727883404) AGAP (test code = 2-16 9133458871) BUN (test code = 10 mg/dL 7-23 3972246556) GLUCOSE (test code = 83 mg/dL 70-110 1137879690) CREATININE (test code = 1.48 mg/dL 0.60-1.25 H 9273343729) CALCIUM (test code = 8.4 mg/dL 8.6-10.6 L 7865853578) eGFR (test code = mL/min/1.73m2 0861102408) GILBERTO (test code = GILBERTO) Association of [...] tests). Lab Interpretation Abnormal (test code = 21439-9) [facility] 14:06:51 Test Item Value Reference Range Interpretation Comments MAGNESIUM (test code = 0484878442) 2.1 mg/dL 1.7-2.4 Lab Interpretation (test code = Normal 38151-8) [facility] 14:06:51 Test Item Value Reference Range Interpretation Comments PHOSPHORUS (test code = 6150394216) 4.6 mg/dL 2.5-5.0 Lab Interpretation (test code = Normal 08261-0) [facility] [id number] 12:30:05 Test Item Value Reference Range Interpretation [...] RDW-SD (test code = 48.6 fL 38.5-51.6 33339-5) RDW-CV (test code = 14.3 % 12.1-15.4 788-0) PLT (test code = See_Comment [Automated 777-3) message] The sy stem which generated this result transmitted reference range : 150 - 328 10*3/ ?L. The reference r meredith was not used to interpret this result as normal/abnormal . MPV (test code = 10.0 fL 9.8-13.0 41256-5) NRBC/100 WBC (test See_Comment [Automat ed code = [id number]) message] The system which generated this result transmitted reference range : 0.0 - 10.0 /100 WBCs. The refer ence range was not u sed to interpret th is result as normal/abnormal . NRBC x10^3 (test code <0.01 See_Comment [Auto mated = [id number]) message] The s ystem which generated this result transmitted reference range : 10*3/?L. The reference range was not used to interpret this result as normal/abnormal . GRAN MAT (NEUT) % 51.9 % (test code = 770-8) IMM GRAN % (test code 0.60 % = [id number]) LYMPH % (test code = 32.7 % 736-9) MONO % (test code = 11.3 % 5905-5) EOS % (test code = 3.2 % 713-8) BASO % (test code = 0.3 % 706-2) GRAN MAT x10^3(ANC) 1.80 10*3/uL 1.99-6.95 L (test code = [id number]) IMM GRAN x10^3 (test <0.03 0.00-0.06 code = [id number]) LYMPH x10^3 (test code 1.13 10*3/uL 1.09-3.23 = 731-0) MONO x10^3 (test code 0.39 10*3/uL 0.36-1.02 = 742-7) EOS x10^3 (test code = 0.11 10*3/uL 0.06-0.53 711-2) BASO x10^3 (test code <0.03 0.01-0.09 = 704-7) Lab Interpretation Abnormal (test code = 54056-2) [facility] WITH [id number] 10:44:18 Test Item Value Reference Range Interpretation [...] RDW-SD (test code = 48.0 fL 38.5-51.6 96177-3) RDW-CV (test code = 14.1 % 12.1-15.4 788-0) PLT (test code = See_Comment [Automated 777-3) message] The sy stem which generated this result transmitted reference range : 150 - 328 10*3/ ?L. The reference r meredith was not used to interpret this result as normal/abnormal . MPV (test code = 9.5 fL 9.8-13.0 L 52600-7) NRBC/100 WBC (test See_Comment [Automat ed code = 9808807159) message] The system which generated this result transmitted reference range : 0.0 - 10.0 /100 WBCs. The refer ence range was not u sed to interpret th is result as normal/abnormal . NRBC x10^3 (test code <0.01 See_Comment [Auto mated = 8213355201) message] The s ystem which generated this result transmitted reference range : 10*3/?L. The reference range was not used to interpret this result as normal/abnormal . GRAN MAT (NEUT) % 50.8 % (test code = 770-8) IMM GRAN % (test code 0.30 % = 5274697709) LYMPH % (test code = 34.6 % 736-9) MONO % (test code = 10.3 % 5905-5) EOS % (test code = 3.7 % 713-8) BASO % (test code = 0.3 % 706-2) GRAN MAT x10^3(ANC) 1.78 10*3/uL 1.99-6.95 L (test code = 3112513699) IMM GRAN x10^3 (test <0.03 0.00-0.06 code = 4987006661) LYMPH x10^3 (test code 1.21 10*3/uL 1.09-3.23 = 731-0) MONO x10^3 (test code 0.36 10*3/uL 0.36-1.02 = 742-7) EOS x10^3 (test code = 0.13 10*3/uL 0.06-0.53 711-2) BASO x10^3 (test code <0.03 0.01-0.09 = 704-7) Lab Interpretation Abnormal (test code = 37964-3) [facility] METABOLIC PANEL (NA, K, CL, CO2, GLUCOSE, BUN, CREATININE, CA)2021-08-01 10:25:17 Test Item Value Reference Range Interpretation Comments NA (test code = 138 mmol/L 135-145 0197846823) K (test code = 4.1 mmol/L 3.5-5.0 1009768079) CL (test code = 105 mmol/L 98-108 5219696666) CO2 TOTAL (test code = 28 mmol/L 23-31 4430551761) AGAP (test code = 2-16 0354092572) BUN (test code = 13 mg/dL 7-23 6920663271) GLUCOSE (test code = 86 mg/dL 70-110 2195332586) CREATININE (test code = 1.46 mg/dL 0.60-1.25 H 4959315052) CALCIUM (test code = 8.7 mg/dL 8.6-10.6 7543824908) eGFR (test code = mL/min/1.73m2 9168904958) GILBERTO (test code = GILBERTO) Association of [...] tests). Lab Interpretation Abnormal (test code = 39914-7) [facility]17 Test Item Value Reference Range Interpretation Comments MAGNESIUM (test code = 4175791151) 1.6 mg/dL 1.7-2.4 L Lab Interpretation (test code = Abnormal 82527-3) [facility]17 Test Item Value Reference Range Interpretation Comments PHOSPHORUS (test code = 4690373734) 4.1 mg/dL 2.5-5.0 Lab Interpretation (test code = Normal 29731-8) [facility] 16:18:34 Test Item Value Reference Range Interpretation Comments PALB (test code = 24413-2) 24.3 mg/dL 18.0-45.0 Lab Interpretation (test code = Normal 61164-7) [facility] [id number] 11:20:19 Test Item Value Reference Range Interpretation [...] RDW-SD (test code = 49.6 fL 38.5-51.6 78710-4) RDW-CV (test code = 14.6 % 12.1-15.4 788-0) PLT (test code = See_Comment [Automated 777-3) message] The sy stem which generated this result transmitted reference range : 150 - 328 10*3/ ?L. The reference r meredith was not used to interpret this result as normal/abnormal . MPV (test code = 9.6 fL 9.8-13.0 L 22019-9) NRBC/100 WBC (test See_Comment [Automat ed code = 9488819656) message] The system which generated this result transmitted reference range : 0.0 - 10.0 /100 WBCs. The refer ence range was not u sed to interpret th is result as normal/abnormal . NRBC x10^3 (test code <0.01 See_Comment [Auto mated = 4372906660) message] The s ystem which generated this result transmitted reference range : 10*3/?L. The reference range was not used to interpret this result as normal/abnormal . GRAN MAT (NEUT) % 49.1 % (test code = 770-8) IMM GRAN % (test code 0.30 % = 9218085479) LYMPH % (test code = 36.0 % 736-9) MONO % (test code = 10.6 % 5905-5) EOS % (test code = 3.4 % 713-8) BASO % (test code = 0.6 % 706-2) GRAN MAT x10^3(ANC) 1.76 10*3/uL 1.99-6.95 L (test code = 3362562370) IMM GRAN x10^3 (test <0.03 0.00-0.06 code = 1598084488) LYMPH x10^3 (test code 1.29 10*3/uL 1.09-3.23 = 731-0) MONO x10^3 (test code 0.38 10*3/uL 0.36-1.02 = 742-7) EOS x10^3 (test code = 0.12 10*3/uL 0.06-0.53 711-2) BASO x10^3 (test code <0.03 0.01-0.09 = 704-7) Lab Interpretation Abnormal (test code = 15027-8) [facility] METABOLIC PANEL (NA, K, CL, CO2, GLUCOSE, BUN, CREATININE, CA)2021-07-31 11:11:17 Test Item Value Reference Range Interpretation Comments NA (test code = 135 mmol/L 135-145 6970100325) K (test code = 3.8 mmol/L 3.5-5.0 1953381924) CL (test code = 108 mmol/L 98-108 4271089901) CO2 TOTAL (test code = 24 mmol/L 23-31 7822406955) AGAP (test code = 2-16 2109491281) BUN (test code = 13 mg/dL 7-23 0499463696) GLUCOSE (test code = 88 mg/dL 70-110 9199631393) CREATININE (test code = 1.32 mg/dL 0.60-1.25 H 6838671905) CALCIUM (test code = 8.4 mg/dL 8.6-10.6 L 8624820805) eGFR (test code = mL/min/1.73m2 8852118096) GILBERTO (test code = GILBERTO) Association of [...] tests). Lab Interpretation Abnormal (test code = 63508-2) [facility] 11:11:17 Test Item Value Reference Range Interpretation Comments MAGNESIUM (test code = 3739310153) 1.8 mg/dL 1.7-2.4 Lab Interpretation (test code = Normal 83282-8) [facility] 11:11:17 Test Item Value Reference Range Interpretation Comments PHOSPHORUS (test code = 5354633143) 4.0 mg/dL 2.5-5.0 Lab Interpretation (test code = Normal 42381-5) [facility] (54385[facility]2021-07-30 03:46:32 Test Item Value Reference Range Interpretation Comments NA (test code = 132 mmol/L 135-145 L 4271713421) K (test code = 4.4 mmol/L 3.5-5.0 7380911514) CL (test code = 102 mmol/L 98-108 3892972759) CO2 TOTAL (test code = 24 mmol/L 23-31 0033103262) AGAP (test code = 2-16 0382688230) BUN (test code = 21 mg/dL 7-23 8802236364) GLUCOSE (test code = 95 mg/dL 70-110 2690770612) CREATININE (test code = 1.76 mg/dL 0.60-1.25 H 0360838636) TOTAL BILI (test code = 0.7 mg/dL 0.1-1.1 0945537197) CALCIUM (test code = 8.8 mg/dL 8.6-10.6 2605815189) T PROTEIN (test code = 6.0 g/dL 6.3-8.2 L 3436614813) ALBUMIN (test code = 3.8 g/dL 3.5-5.0 8987330025) ALK PHOS (test code = 67 U/L 34-122 6209425494) ALTv (test code = 47 U/L 5-50 1742-6) AST(SGOT) (test code = 39 U/L 13-40 0963438973) eGFR (test code = mL/min/1.73m2 9405532296) GILBERTO (test code = GILBERTO) Association of [...] tests). Lab Interpretation Abnormal (test code = 86026-0) [facility] 03[facility]19:26 Test Item Value Reference Range Interpretation Comments LIPASE (test code = 8253319120) 58 U/L 0-220 Lab Interpretation (test code = Normal 51865-3) [facility] WITH [id number] 03:07:20 Test Item Value Reference Range Interpretation Comments WBC (test code = See_Comment [Automated 6090-2) message] The sy stem which generated this result transmitted reference range : 4.20 - 10.70 10*3/?L. The reference range was not used to interpret this result as normal/abnormal . RBC (test code = See_Comment L [Automated 449-8) message] The sy stem which generated this [...] RDW-SD (test code = 47.4 fL 38.5-51.6 76009-0) RDW-CV (test code = 14.2 % 12.1-15.4 788-0) PLT (test code = See_Comment [Automated 777-3) message] The sy stem which generated this result transmitted reference range : 150 - 328 10*3/ ?L. The reference r meredith was not used to interpret this result as normal/abnormal . MPV (test code = 9.9 fL 9.8-13.0 80321-1) NRBC/100 WBC (test See_Comment [Automat ed code = 1969934318) message] The system which generated this result transmitted reference range : 0.0 - 10.0 /100 WBCs. The refer ence range was not u sed to interpret th is result as normal/abnormal . NRBC x10^3 (test code <0.01 See_Comment [Auto mated = 5043930109) message] The s ystem which generated this result transmitted reference range : 10*3/?L. The reference range was not used to interpret this result as normal/abnormal . GRAN MAT (NEUT) % 61.1 % (test code = 770-8) IMM GRAN % (test code 0.20 % = 1567331924) LYMPH % (test code = 24.4 % 736-9) MONO % (test code = 11.8 % 5905-5) EOS % (test code = 2.2 % 713-8) BASO % (test code = 0.3 % 706-2) GRAN MAT x10^3(ANC) 3.98 10*3/uL 1.99-6.95 (test code = 0735634175) IMM GRAN x10^3 (test <0.03 0.00-0.06 code = 9475095772) LYMPH x10^3 (test code 1.59 10*3/uL 1.09-3.23 = 731-0) MONO x10^3 (test code 0.77 10*3/uL 0.36-1.02 = 742-7) EOS x10^3 (test code = 0.14 10*3/uL 0.06-0.53 711-2) BASO x10^3 (test code <0.03 0.01-0.09 = 704-7) Lab Interpretation Abnormal (test code = 26615-7) [facility] Whole [id number] 03:00:47 Test Item Value Reference Range Interpretation Comments LACTIC ACID (test code = 1.45 mmol/L 0.50-2.20 QUE S 0103497505) Lab Interpretation (test code = Normal 83083-9) [facility] [id number] 11:51:00 Test Item Value Reference Range Interpretation [...] Units/L 50.0-136.0 N code = ALKP) PROTHROMBIN [id number] 11:41:00 Test Item Value Reference Range Interpretation Comments PROTHROMBIN TIME 10.9 SECONDS 9.9-12.8 N PATIENT (test code = PTP) INTERNATIONAL NORMAL 0.9 0.89-1.14 N THE INR IS TO BE USED RATIO (test code = ONLY FOR MONITORING INR) ORAL ANTICOAGULANTTH ERAPY. THE FOLLOWING A RE SU[facility]:ROOPA CATION INR VALUEPROPHY LAXIS [...] D ANTIBODIES 2.5 - 3.5 CBC W/AUTO [id number] 11:36:00 Test Item Value Reference Range Interpretation [...] NA (test code = 137 mmol/L 135-145 7613753014) K (test code = 4.2 mmol/L 3.5-5.0 2073845269) CL (test code = 109 mmol/L 98-108 H 6424674353) CO2 TOTAL (test code = 25 mmol/L 23-31 9319327252) AGAP (test code = 2-16 1194444017) BUN (test code = 11 mg/dL 7-23 1327228838) GLUCOSE (test code = 83 mg/dL 70-110 1340461705) CREATININE (test code = 1.40 mg/dL 0.60-1.25 H 9188964357) CALCIUM (test code = 8.6 mg/dL 8.6-10.6 7832198493) eGFR (test code = mL/min/1.73m2 1138244420) GILBERTO (test code = GILBERTO) Association of [...] tests). Lab Interpretation Abnormal (test code = 99644-8) [facility] 13:15:26 Test Item Value Reference Range Interpretation Comments MAGNESIUM (test code = 3965495955) 1.6 mg/dL 1.7-2.4 L Lab Interpretation (test code = Abnormal 27315-5) [facility] 13:15:26 Test Item Value Reference Range Interpretation Comments PHOSPHORUS (test code = 8836882999) 3.5 mg/dL 2.5-5.0 Lab Interpretation (test code = Normal 91370-0) [facility] WITH [id number] 12:50:41 Test Item Value Reference Range Interpretation [...] RDW-SD (test code = 46.7 fL 38.5-51.6 24553-5) RDW-CV (test code = 14.3 % 12.1-15.4 788-0) PLT (test code = See_Comment [Automated 777-3) message] The sy stem which generated this result transmitted reference range : 150 - 328 10*3/ ?L. The reference r meredith was not used to interpret this result as normal/abnormal . MPV (test code = 9.6 fL 9.8-13.0 L 49274-7) NRBC/100 WBC (test See_Comment [Automat ed code = 3111778975) message] The system which generated this result transmitted reference range : 0.0 - 10.0 /100 WBCs. The refer ence range was not u sed to interpret th is result as normal/abnormal . NRBC x10^3 (test code <0.01 See_Comment [Auto mated = 0178088873) message] The s ystem which generated this result transmitted reference range : 10*3/?L. The reference range was not used to interpret this result as normal/abnormal . GRAN MAT (NEUT) % 52.7 % (test code = 770-8) IMM GRAN % (test code 0.40 % = 9500299140) LYMPH % (test code = 33.7 % 736-9) MONO % (test code = 10.4 % 5905-5) EOS % (test code = 2.4 % 713-8) BASO % (test code = 0.4 % 706-2) GRAN MAT x10^3(ANC) 2.65 10*3/uL 1.99-6.95 (test code = 3275270397) IMM GRAN x10^3 (test <0.03 0.00-0.06 code = 4081604805) LYMPH x10^3 (test code 1.69 10*3/uL 1.09-3.23 = 731-0) MONO x10^3 (test code 0.52 10*3/uL 0.36-1.02 = 742-7) EOS x10^3 (test code = 0.12 10*3/uL 0.06-0.53 711-2) BASO x10^3 (test code <0.03 0.01-0.09 = 704-7) Lab Interpretation Abnormal (test code = 90794-8) [facility] 12:35:59 Test Item Value Reference Range Interpretation Comments MAGNESIUM (test code = 3188223460) 1.6 mg/dL 1.7-2.4 L Lab Interpretation (test code = Abnormal 47557-5) [facility] 12:35:59 Test Item Value Reference Range Interpretation Comments PHOSPHORUS (test code = 0652852860) 4.0 mg/dL 2.5-5.0 Lab Interpretation (test code = Normal 80110-0) [facility] (NA, K, CL, CO2, GLUCOSE, BUN, CREATININE, CA)2021-07-25 12:09:12 Test Item Value Reference Range Interpretation Comments NA (test code = 139 mmol/L 135-145 3249494314) K (test code = 4.1 mmol/L 3.5-5.0 4294682062) CL (test code = 111 mmol/L 98-108 H 0324810541) CO2 TOTAL (test code = 25 mmol/L 23-31 8189731480) AGAP (test code = 2-16 4256160681) BUN (test code = 13 mg/dL 7-23 3753754028) GLUCOSE (test code = 86 mg/dL 70-110 0317550349) CREATININE (test code = 1.43 mg/dL 0.60-1.25 H 6814619228) CALCIUM (test code = 8.4 mg/dL 8.6-10.6 L 6050198408) eGFR (test code = mL/min/1.73m2 0630030659) GILBERTO (test code = GILBERTO) Association of [...] tests). Lab Interpretation Abnormal (test code = 82512-2) [facility] WITH [id number] 11:44:33 Test Item Value Reference Range Interpretation [...] RDW-SD (test code = 48.9 fL 38.5-51.6 98578-0) RDW-CV (test code = 14.3 % 12.1-15.4 788-0) PLT (test code = See_Comment [Automated 777-3) message] The sy stem which generated this result transmitted reference range : 150 - 328 10*3/ ?L. The reference r meredith was not used to interpret this result as normal/abnormal . MPV (test code = 9.6 fL 9.8-13.0 L 63963-8) NRBC/100 WBC (test See_Comment [Automat ed code = 7911077300) message] The system which generated this result transmitted reference range : 0.0 - 10.0 /100 WBCs. The refer ence range was not u sed to interpret th is result as normal/abnormal . NRBC x10^3 (test code <0.01 See_Comment [Auto mated = 2783421849) message] The s ystem which generated this result transmitted reference range : 10*3/?L. The reference range was not used to interpret this result as normal/abnormal . GRAN MAT (NEUT) % 50.0 % (test code = 770-8) IMM GRAN % (test code 0.20 % = 6723998036) LYMPH % (test code = 36.7 % 736-9) MONO % (test code = 10.0 % 5905-5) EOS % (test code = 2.6 % 713-8) BASO % (test code = 0.5 % 706-2) GRAN MAT x10^3(ANC) 2.11 10*3/uL 1.99-6.95 (test code = 5367108122) IMM GRAN x10^3 (test <0.03 0.00-0.06 code = 0882680552) LYMPH x10^3 (test code 1.55 10*3/uL 1.09-3.23 = 731-0) MONO x10^3 (test code 0.42 10*3/uL 0.36-1.02 = 742-7) EOS x10^3 (test code = 0.11 10*3/uL 0.06-0.53 711-2) BASO x10^3 (test code <0.03 0.01-0.09 = 704-7) Lab Interpretation Abnormal (test code = 28468-0) [facility] WITH [id number] 04:23:56 Test Item Value Reference Range Interpretation Comments WBC (test code = See_Comment [Automated 9890-2) message] The sy stem which generated this result transmitted reference range : 4.20 - 10.70 10*3/?L. The reference range was not used to interpret this result as normal/abnormal . RBC (test code = See_Comment L [Automated 599-8) message] The sy stem which generated this [...] RDW-SD (test code = 49.0 fL 38.5-51.6 49495-7) RDW-CV (test code = 14.4 % 12.1-15.4 788-0) PLT (test code = See_Comment [Automated 777-3) message] The sy stem which generated this result transmitted reference range : 150 - 328 10*3/ ?L. The reference r meredith was not used to interpret this result as normal/abnormal . MPV (test code = 9.5 fL 9.8-13.0 L 76180-8) NRBC/100 WBC (test See_Comment [Automat ed code = 6427216250) message] The system which generated this result transmitted reference range : 0.0 - 10.0 /100 WBCs. The refer ence range was not u sed to interpret th is result as normal/abnormal . NRBC x10^3 (test code <0.01 See_Comment [Auto mated = 6884280799) message] The s ystem which generated this result transmitted reference range : 10*3/?L. The reference range was not used to interpret this result as normal/abnormal . GRAN MAT (NEUT) % 49.9 % (test code = 770-8) IMM GRAN % (test code 0.20 % = 3290776387) LYMPH % (test code = 35.2 % 736-9) MONO % (test code = 11.7 % 5905-5) EOS % (test code = 2.4 % 713-8) BASO % (test code = 0.6 % 706-2) GRAN MAT x10^3(ANC) 2.31 10*3/uL 1.99-6.95 (test code = 1225611466) IMM GRAN x10^3 (test <0.03 0.00-0.06 code = 7419070409) LYMPH x10^3 (test code 1.63 10*3/uL 1.09-3.23 = 731-0) MONO x10^3 (test code 0.54 10*3/uL 0.36-1.02 = 742-7) EOS x10^3 (test code = 0.11 10*3/uL 0.06-0.53 711-2) BASO x10^3 (test code 0.03 10*3/uL 0.01-0.09 = 704-7) Lab Interpretation Abnormal (test code = 15596-5) [facility] METABOLIC PANEL (NA, K, CL, CO2, GLUCOSE, BUN, CREATININE, CA)2021-07-24 12:55:24 Test Item Value Reference Range Interpretation Comments NA (test code = 135 mmol/L 135-145 5120191901) K (test code = 4.0 mmol/L 3.5-5.0 9682292003) CL (test code = 109 mmol/L 98-108 H 8819646141) CO2 TOTAL (test code = 22 mmol/L 23-31 L 3652623247) AGAP (test code = 2-16 7400433429) BUN (test code = 12 mg/dL 7-23 8949211207) GLUCOSE (test code = 102 mg/dL 70-110 5971716254) CREATININE (test code = 1.27 mg/dL 0.60-1.25 H 1767638163) CALCIUM (test code = 8.6 mg/dL 8.6-10.6 7241962119) eGFR (test code = mL/min/1.73m2 1386744152) GILBERTO (test code = GILBERTO) Association of [...] tests). Lab Interpretation Abnormal (test code = 60622-9) [facility] 12:55:24 Test Item Value Reference Range Interpretation Comments MAGNESIUM (test code = 7220515872) 1.7 mg/dL 1.7-2.4 Lab Interpretation (test code = Normal 82628-6) [facility] 12:55:24 Test Item Value Reference Range Interpretation Comments PHOSPHORUS (test code = 2687558201) 3.1 mg/dL 2.5-5.0 Lab Interpretation (test code = Normal 61403-4) [facility] (NA, K, CL, CO2, Glucose, BUN, Creatinine, CA)2021-07-23 13:27:55 Test Item Value Reference Range Interpretation Comments NA (test code = 134 mmol/L 135-145 L 8890667707) K (test code = 3.8 mmol/L 3.5-5.0 8778338593) CL (test code = 107 mmol/L 98-108 3398507467) CO2 TOTAL (test code = 21 mmol/L 23-31 L 5086836706) AGAP (test code = 2-16 3577188628) BUN (test code = 18 mg/dL 7-23 4325762526) GLUCOSE (test code = 120 mg/dL 70-110 H 5735670903) CREATININE (test code = 1.46 mg/dL 0.60-1.25 H 0143589950) CALCIUM (test code = 8.7 mg/dL 8.6-10.6 8193162399) eGFR (test code = mL/min/1.73m2 1767515865) GILBERTO (test code = GILBERTO) Association of [...] tests). Lab Interpretation Abnormal (test code = 78947-6) [facility] 13:27:55 Test Item Value Reference Range Interpretation Comments MAGNESIUM (test code = 1942844341) 1.9 mg/dL 1.7-2.4 Lab Interpretation (test code = Normal 62642-9) [facility] 13:27:55 Test Item Value Reference Range Interpretation Comments PHOSPHORUS (test code = 5006075313) 3.5 mg/dL 2.5-5.0 Lab Interpretation (test code = Normal 19328-2) [facility] [id number] 13:06:55 Test Item Value Reference Range Interpretation [...] RDW-SD (test code = 47.8 fL 38.5-51.6 35158-6) RDW-CV (test code = 14.4 % 12.1-15.4 788-0) PLT (test code = See_Comment [Automated 777-3) message] The sy stem which generated this result transmitted reference range : 150 - 328 10*3/ ?L. The reference r meredith was not used to interpret this result as normal/abnormal . MPV (test code = 9.4 fL 9.8-13.0 L 30324-0) NRBC/100 WBC (test See_Comment [Automat ed code = 2691268709) message] The system which generated this result transmitted reference range : 0.0 - 10.0 /100 WBCs. The refer ence range was not u sed to interpret th is result as normal/abnormal . NRBC x10^3 (test code <0.01 See_Comment [Auto mated = 8200295057) message] The s ystem which generated this result transmitted reference range : 10*3/?L. The reference range was not used to interpret this result as normal/abnormal . GRAN MAT (NEUT) % 54.7 % (test code = 770-8) IMM GRAN % (test code 0.40 % = 0037749936) LYMPH % (test code = 33.3 % 736-9) MONO % (test code = 9.4 % 5905-5) EOS % (test code = 1.8 % 713-8) BASO % (test code = 0.4 % 706-2) GRAN MAT x10^3(ANC) 2.78 10*3/uL 1.99-6.95 (test code = 3102756049) IMM GRAN x10^3 (test <0.03 0.00-0.06 code = 7785167305) LYMPH x10^3 (test code 1.69 10*3/uL 1.09-3.23 = 731-0) MONO x10^3 (test code 0.48 10*3/uL 0.36-1.02 = 742-7) EOS x10^3 (test code = 0.09 10*3/uL 0.06-0.53 711-2) BASO x10^3 (test code <0.03 0.01-0.09 = 704-7) Lab Interpretation Abnormal (test code = 76730-7) [facility] W/AUTO [id number] 09:48:00 Test Item Value Reference Range Interpretation [...] = MX#) 0.8 k/mm3 0.1-0.8 N GLUCOSE [id number] 06:12:00 Test Item Value Reference Range Interpretation Comments GLUCOSE BEDSIDE (test 129 MG/DL 70-110 H Perfor med by certified code = GLUBED) 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 [facility] BASIC METABOLIC [id number] 05:21:00 Test Item Value Reference Range Interpretation [...] (test code = POCGLU) 92 MG/DL GLUCOSE [id number] 05:19:00 Test Item Value Reference Range Interpretation Comments GLUCOSE BEDSIDE (test 51 MG/DL 70-110 L [facility] med by certified code = GLUBED) 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 [facility] CBC W/AUTO [id number] 14:00:00 Test Item Value Reference Range Interpretation [...] MX#) 0.2 k/mm3 0.1-0.8 N CBC W/AUTO [id number] 00:07:00 Test Item Value Reference Range Interpretation [...] = LY#) 2.4 K/uL 1.0-3.8 N LIVER [id number] 16:14:00 Test Item Value Reference Range Interpretation Comments TOTAL PROTEIN (test code 7.5 GM/DL 5.0-8.0 N Per formed by = PROT) certified opera tor [facility] ALBUMIN (test code = 3.9 [...] (test code = 65 UNITS/L 25-125 N TAWNY) BASIC METABOLIC [id number] 16:07:00 Test Item Value Reference Range Interpretation [...] POCGLU) 96 MG/DL - XR CHEST 1 [id number] 00:00:00 [facility] 1970 Sex: MFAX: Sabi Urias MD [phone] Alpha: [place] St: PRE Name: DORA JOSEPH FSED : 1970 Age/S: 51/M [address] [facility] Unit #: [id number] Loc: [place] [address] Phys: Sabi Urias MD Acct: [id number] Dis Date: Status: PRE ER PHONE #: Exam Date: 06/27/2021 1548 FAX #: Reason: Abdominal Pain EXAMS: CPT CODE: [id number] XR CHEST 1 V 78989 PROCEDURE INFORMATION: Exam: XR Chest Exam date and time: 06/27/2021 3:37 PM Age: 51 years old Clinical indication: Other: Abdominal pain TECHNIQUE: Imaging protocol: XR of the chest. Views: 1 view. [...] diaphragm. No acute cardiopulmonary findings otherwise.. at 6988 Reported and signed by: Андрей Mar M.D. CC: Sabi Urias MD Technologist: Yecenia Carbajal RT(R)(CT) Trnscrd Date/Time/By: 06/27/2021 (7785) : By: [email or web address] [facility] Print D/T: S: 06/27/2021 (4232) PAGE 1 Signed Report- CT ABD PELVIS W/[id number] 00:00:00 [facility] 1970 Sex: MName: DORA JOSEPH FSED : 1970 Age/S: 51 / M [address] [facility] Unit #: [id number] Loc: [place] [address] Phys: Sabi Urias MD Acct: [id number] Dis Date: Status: REG ER PHONE #: Exam Date: 06/27/2021 1620 FAX #: Reason: pain in region of colostomy EXAMS: CPT CODE: [id number] CT ABD PELVIS W/CONT 28331 PROCEDURE INFORMATION: Exam: CT Abdomen And Pelvis With Contrast Examdate and time: 06/27/2021 4:14 PM Age: 51 years old Clinical indication: Abdominal pain; Generalized; Additional info: Pain in region of colostomy TECHNIQUE: Imaging protocol: Computed tomography of the abdomen and pelvis with contrast. Radiation optimization: All CT scans at this facility use at least one of these dose optimization techniques: automated exposure control; mA and/or kV adjustment perpatient size (includes targeted exams where dose is matched to clinical indication); or iterative reconstruction. Contrast material: 300; Contrast volume: 100 ml; Contrast route: INTRAVENOUS (IV) COMPARISON: CT ABD PELVIS W/CONT 04/28/2021 7:11 PM FINDINGS: ABDOMINAL ORGANS: No acute CT abnormalities ofthe liver, spleen, pancreas, adrenal glands or kidneys are detected. There is no CT evidence of acute renal collecting system obstruction or calcified renal collecting system stone. BILIARY: The gallbladder is normally distended. No significant biliary ductal dilatation is detected. GASTROINTESTINAL:Bowel assessment is limited by the absence of bowel contrast. No gross abnormalities of the stomach or duodenum are identified. 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 A parastomal fat containing hernia is present is present with ileostomy prolapse. No small bowel dilatation is present to suggest associated intestinal obstruction. The Aaron pouch has an unremarkable CT appearance. PERITONEUM: No evidence of free intraperitoneal air. No significant free intraperitoneal fluid. RETROPERITONEUM: The abdominal aorta demonstrates no evidence of aneurysm or dissection. There is no evidence of retroperitoneal mass or adenopathy. PELVIS: The bladder has an unremarkable appearance. No enlarged pelvic lymph nodes are identified.LOWER CHEST: The lung bases appear clear of acute disease. ADDITIONAL FINDINGS: None. IMPRESSION: 1.Status post subtotal colectomy with formation of a right mid abdominal ileostomy. A peristomal fat co ntaining hernia is present PAGE 1 Signed Report (CONTINUED) Name: DORA JOSEPH FSED :1970 Age/S: 51 / M [address] [facility] Unit #: [id number] Loc: [place] [address] Phys: Sabi Urias MD Acct: [id number] Dis Date: Status: REG ER PHONE #: Exam Date: 06/27/2021 1625 FAX #: Reason: pain in region of colostomy EXAMS: CPT CODE: [id number] CT ABD PELVIS W/CONT 43218 <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 There is no evidence of associated intestinal obstruction. 2. No additional acute CT abnormalities of the abdomen or pelvis are identified. SL:131 at 1650 Reported and signed by: Marco Hsu M.D. CC: Sabi Urias MD Technologist:RT Alanna(R)(CT) CTDI: DLP: Trnscb Date/Time: 06/27/2021 (1649) [place] Orig Print D/T: S: 06/27/2021 (1649) PAGE 2 Signed ReportBASIC METABOLIC PANEL (NA, K, CL, CO2, GLUCOSE, BUN, CREATININE, CA)2021-06-03 11:32:40 Test Item Value Reference Range Interpretation Comments NA (test code = 133 mmol/L 135-145 L 1338130315) K (test code = 3.7 mmol/L 3.5-5.0 9129592220) CL (test code = 108 mmol/L 98-108 4957642182) CO2 TOTAL (test code = 20 mmol/L 23-31 L 7073699368) AGAP (test code = 2-16 2132073799) BUN (test code = 11 mg/dL 7-23 9488329973) GLUCOSE (test code = 82 mg/dL 70-110 8244504528) CREATININE (test code = 0.96 mg/dL 0.60-1.25 4225965458) CALCIUM (test code = 8.6 mg/dL 8.6-10.6 0744194606) eGFR (test code = mL/min/1.73m2 4387734812) GILBERTO (test code = GILBERTO) Association of [...] tests). Lab Interpretation Abnormal (test code = 64739-4) [facility] METABOLIC PANEL (NA, K, CL, CO2, GLUCOSE, BUN, CREATININE, CA)2021-06-02 11:45:25 Test Item Value Reference Range Interpretation Comments NA (test code = 133 mmol/L 135-145 L 1667159950) K (test code = 3.7 mmol/L 3.5-5.0 1451720773) CL (test code = 111 mmol/L 98-108 H 2608380184) CO2 TOTAL (test code = 17 mmol/L 23-31 L 1641263793) AGAP (test code = 2-16 3430692967) BUN (test code = 15 mg/dL 7-23 0958030117) GLUCOSE (test code = 88 mg/dL 70-110 6553078300) CREATININE (test code = 0.96 mg/dL 0.60-1.25 5538848907) CALCIUM (test code = 8.1 mg/dL 8.6-10.6 L 7197917343) eGFR (test code = mL/min/1.73m2 6510110966) GILBERTO (test code = GILBERTO) Association of [...] tests). Lab Interpretation Abnormal (test code = 19248-5) [facility] METABOLIC PANEL (NA, K, CL, CO2, GLUCOSE, BUN, CREATININE, CA)2021-06-01 17:06:47 Test Item Value Reference Range Interpretation Comments NA (test code = 131 mmol/L 135-145 L 2036788588) K (test code = 3.9 mmol/L 3.5-5.0 Slight 2175772659) hemolysis CL (test code = 108 mmol/L 98-108 2547727416) CO2 TOTAL (test code 15 mmol/L 23-31 L = 8935182190) AGAP (test code = 2-16 0332896480) BUN (test code = 26 mg/dL 7-23 H Slight 5440957778) hemolysis GLUCOSE (test code = 85 mg/dL 70-110 8298358330) CREATININE (test code 1.26 mg/dL 0.60-1.25 H = 2335879084) CALCIUM (test code = 8.1 mg/dL 8.6-10.6 L 0728366387) eGFR (test code = mL/min/1.73m2 9216857505) GILBERTO (test code = GILBERTO) Association of [...] tests). Lab Interpretation Abnormal (test code = 07410-6) [facility] [id number] 05:45:35 Test Item Value Reference Range Interpretation Comments LACTIC ACID (test code = 0.67 mmol/L 0.50-2.20 2788468332) Lab Interpretation (test code = Normal 92282-3) [facility] [id number] 23:44:55 Test Item Value Reference Interpretation Comments Range TROPONIN I (test 0.004 ng/mL See_Comment [Automated code = 3274892508) message] The system which generated this result [...] biotin. Lab Interpretation Normal (test code = 34798-3) [facility] 23:33:28 Test Item Value Reference Range Interpretation Comments LIPASE (test code = 2855989146) 386 U/L 0-220 H Lab Interpretation (test code = Abnormal 62263-9) [facility]. METABOLIC PANEL ([id number])2021-05-31 23:33:28 Test Item Value Reference Range Interpretation Comments NA (test code = 128 mmol/L 135-145 L 2158396839) K (test code = 4.2 mmol/L 3.5-5.0 8151094365) CL (test code = 102 mmol/L 98-108 1463458017) CO2 TOTAL (test code = 13 mmol/L 23-31 L 0512532729) AGAP (test code = 2-16 2737551865) BUN (test code = 47 mg/dL 7-23 H 7348529440) GLUCOSE (test code = 106 mg/dL 70-110 6314661089) CREATININE (test code = 2.38 mg/dL 0.60-1.25 H 6342573894) TOTAL BILI (test code = 0.6 mg/dL 0.1-1.1 3606426837) CALCIUM (test code = 9.5 mg/dL 8.6-10.6 7397342921) T PROTEIN (test code = 7.3 g/dL 6.3-8.2 0586736302) ALBUMIN (test code = 4.6 g/dL 3.5-5.0 2230468080) ALK PHOS (test code = 110 U/L 34-122 7911358057) ALTv (test code = 29 U/L 5-50 1742-6) AST(SGOT) (test code = 33 U/L 13-40 9113783321) eGFR (test code = mL/min/1.73m2 7983485984) GILBERTO (test code = GILBERTO) Association of [...] tests). Lab Interpretation Abnormal (test code = 05263-7) [facility] WITH [id number] 22:57:06 Test Item Value Reference Range Interpretation Comments WBC (test code = See_Comment [Automated 7890-2) message] The sy stem which generated this result transmitted reference range : 4.20 - 10.70 10*3/?L. The reference range was not used to interpret this result as normal/abnormal . RBC (test code = See_Comment [Automated 659-8) message] The sy stem which generated this [...] RDW-SD (test code = 43.2 fL 38.5-51.6 89987-7) RDW-CV (test code = 13.7 % 12.1-15.4 788-0) PLT (test code = See_Comment [Automated 777-3) message] The sy stem which generated this result transmitted reference range : 150 - 328 10*3/ ?L. The reference r meredith was not used to interpret this result as normal/abnormal . MPV (test code = 10.1 fL 9.8-13.0 21470-3) NRBC/100 WBC (test See_Comment [Automat ed code = 8126608179) message] The system which generated this result transmitted reference range : 0.0 - 10.0 /100 WBCs. The refer ence range was not u sed to interpret th is result as normal/abnormal . NRBC x10^3 (test code <0.01 See_Comment [Auto mated = 4329578072) message] The s ystem which generated this result transmitted reference range : 10*3/?L. The reference range was not used to interpret this result as normal/abnormal . GRAN MAT (NEUT) % 68.1 % (test code = 770-8) IMM GRAN % (test code 0.40 % = 6738179298) LYMPH % (test code = 21.9 % 736-9) MONO % (test code = 8.9 % 5905-5) EOS % (test code = 0.3 % 713-8) BASO % (test code = 0.4 % 706-2) GRAN MAT x10^3(ANC) 5.38 10*3/uL 1.99-6.95 (test code = 3814962615) IMM GRAN x10^3 (test 0.03 10*3/uL 0.00-0.06 code = 8773083234) LYMPH x10^3 (test code 1.73 10*3/uL 1.09-3.23 = 731-0) MONO x10^3 (test code 0.70 10*3/uL 0.36-1.02 = 742-7) EOS x10^3 (test code = <0.03 0.06-0.53 L 711-2) BASO x10^3 (test code 0.03 10*3/uL 0.01-0.09 = 704-7) Lab Interpretation Abnormal (test code = 93340-0) [facility] Test Item Value Reference Range Interpretation Comments MAGNESIUM (test code = 4779372131) 2.0 mg/dL 1.7-2.4 Lab Interpretation (test code = Normal 37868-0) [facility]2021-09-28 09:49:03 Test Item Value Reference Range Interpretation Comments PHOSPHORUS (test code = 5952448920) 4.0 mg/dL 2.5-5.0 Lab Interpretation (test code = Normal 13968-6) [facility] (NA, K, CL, CO2, GLUCOSE, BUN, CREATININE, CA)2021-05-21 09:49:03 Test Item Value Reference Range Interpretation Comments NA (test code = 132 mmol/L 135-145 L 9174756798) K (test code = 4.3 mmol/L 3.5-5.0 1918238804) CL (test code = 105 mmol/L 98-108 5541293195) CO2 TOTAL (test code = 21 mmol/L 23-31 L 8776584848) AGAP (test code = 2-16 6943914706) BUN (test code = 25 mg/dL 7-23 H 2549670543) GLUCOSE (test code = 98 mg/dL 70-110 2810308153) CREATININE (test code = 1.20 mg/dL 0.60-1.25 2809461751) CALCIUM (test code = 8.4 mg/dL 8.6-10.6 L 3949927399) eGFR (test code = mL/min/1.73m2 3560486414) GILBERTO (test code = GILBERTO) Association of [...] tests). Lab Interpretation Abnormal (test code = 93233-3) [facility] with Tmzyaomhtamv1575-35-35 09:22:22 Test Item Value Reference Range Interpretation Comments WBC (test code = See_Comment [Automated 8690-2) message] The sy stem which generated this [...] RDW-SD (test code = 45.6 fL 38.5-51.6 02370-4) RDW-CV (test code = 13.7 % 12.1-15.4 788-0) PLT (test code = See_Comment [Automated 777-3) message] The sy stem which generated this result transmitted reference range : 150 - 328 10*3/ ?L. The reference r meredith was not used to interpret this result as normal/abnormal . MPV (test code = 9.7 fL 9.8-13.0 L 89773-4) NRBC/100 WBC (test See_Comment [Automat ed code = 8571765251) message] The system which generated this result transmitted reference range : 0.0 - 10.0 /100 WBCs. The refer ence range was not u sed to interpret th is result as normal/abnormal . NRBC x10^3 (test code <0.01 See_Comment [Auto mated = 9150964142) message] The s ystem which generated this result transmitted reference range : 10*3/?L. The reference range was not used to interpret this result as normal/abnormal . GRAN MAT (NEUT) % 49.4 % (test code = 770-8) IMM GRAN % (test code 0.60 % = 8811102448) LYMPH % (test code = 35.2 % 736-9) MONO % (test code = 11.9 % 5905-5) EOS % (test code = 2.1 % 713-8) BASO % (test code = 0.8 % 706-2) GRAN MAT x10^3(ANC) 2.33 10*3/uL 1.99-6.95 (test code = 8850477547) IMM GRAN x10^3 (test 0.03 10*3/uL 0.00-0.06 code = 1698807808) LYMPH x10^3 (test code 1.66 10*3/uL 1.09-3.23 = 731-0) MONO x10^3 (test code 0.56 10*3/uL 0.36-1.02 = 742-7) EOS x10^3 (test code = 0.10 10*3/uL 0.06-0.53 711-2) BASO x10^3 (test code 0.04 10*3/uL 0.01-0.09 = 704-7) Lab Interpretation Abnormal (test code = 52874-5) [facility] 20:21:19 Test Item Value Reference Range Interpretation Comments LIPASE (test code = 8917571967) 307 U/L 0-220 H Lab Interpretation (test code = Abnormal 79366-5) [facility]OL[facility] PAN[facility] ([id number])2021-05-20 20:21:19 Test Item Value Reference Range Interpretation Comments NA (test code = 132 mmol/L 135-145 L 4934127522) K (test code = 4.3 mmol/L 3.5-5.0 8508821134) CL (test code = 100 mmol/L 98-108 9313241064) CO2 TOTAL (test code = 18 mmol/L 23-31 L 3372650976) AGAP (test code = 2-16 4545868283) BUN (test code = 32 mg/dL 7-23 H 0607840690) GLUCOSE (test code = 100 mg/dL 70-110 8442107658) CREATININE (test code = 1.76 mg/dL 0.60-1.25 H 6312123642) TOTAL BILI (test code = 0.7 mg/dL 0.1-1.5 3550202235) CALCIUM (test code = 9.6 mg/dL 8.6-10.6 0201066767) T PROTEIN (test code = 7.5 g/dL 6.3-8.2 7589324025) ALBUMIN (test code = 4.7 g/dL 3.5-5.0 6293716983) ALK PHOS (test code = 104 U/L 34-122 3276839204) ALTv (test code = 23 U/L 5-50 1742-6) AST(SGOT) (test code = 29 U/L 13-40 8837552298) eGFR (test code = mL/min/1.73m2 2204734850) GILBERTO (test code = GILBERTO) Association of [...] tests). Lab Interpretation Abnormal (test code = 17988-5) [facility] WITH [id number] 20:15:39 Test Item Value Reference Range Interpretation Comments WBC (test code = See_Comment [Automated message] 6690-2) The system Sticky generated this result transmitted ref erence range: 4.20 - 1 0.70 10*3/?L. The re ference range was not u sed to interpret this result as normal/abnor mal. RBC (test code = See_Comment [Automated message] 249-8) The system Sticky generated this result transmitted ref erence range: [...] RDW-SD (test code 44.8 fL 38.5-51.6 = 58927-6) RDW-CV (test code 13.7 % 12.1-15.4 = 788-0) PLT (test code = See_Comment [Automated message] 777-3) The system whic h generated this result transmitted ref erence range: 150 - 32 8 10*3/?L. The re ference range was not u sed to interpret this result as normal/abnor mal. MPV (test code = 9.8 fL 9.8-13.0 05932-7) NRBC/100 WBC (test See_Comment [Automat ed message] code = 5400977364) The syste m which generated this result transmitted ref erence range: 0.0 - 10 .0 /100 WBCs. The refer ence range was not u sed to interpret this result as normal/abnor mal. NRBC x10^3 (test <0.01 See_Comment [Automated message] code = 4502930601) The syste m which generated this result transmitted ref erence range: 10*3/?L. The reference range was not used to interpr et this result as normal/abnormal . GRAN MAT (NEUT) % 55.9 % (test code = 770-8) IMM GRAN % (test 0.40 % code = 7664804151) LYMPH % (test code 32.5 % = 736-9) MONO % (test code 9.4 % = 5905-5) EOS % (test code = 1.2 % 713-8) BASO % (test code 0.6 % = 706-2) GRAN MAT 3.87 10*3/uL 1.99-6.95 x10^3(ANC) (test code = 3943455515) IMM GRAN x10^3 0.03 10*3/uL 0.00-0.06 (test code = 2122919917) LYMPH x10^3 (test 2.25 10*3/uL 1.09-3.23 code = 731-0) MONO x10^3 (test 0.65 10*3/uL 0.36-1.02 code = 742-7) EOS x10^3 (test 0.08 10*3/uL 0.06-0.53 code = 711-2) BASO x10^3 (test 0.04 10*3/uL 0.01-0.09 code = 704-7) [facility] Acid Whole Hatna4139-21-54 20:07:57 Test Item Value Reference Range Interpretation Comments LACTIC ACID (test code = 1.81 mmol/L 0.50-2.20 4164564830) Lab Interpretation (test code = Normal 67119-5) [facility] Metabolic Panel (NA, K, CL, CO2, GLUCOSE, BUN, CREATININE, CA)2021-05-08 10:32:35 Test Item Value Reference Range Interpretation Comments NA (test code = 135 mmol/L 135-145 3333981978) K (test code = 4.2 mmol/L 3.5-5.0 7066203817) CL (test code = 106 mmol/L 98-108 8459301586) CO2 TOTAL (test code 23 mmol/L 23-31 = 7076036920) AGAP (test code = 2-16 9986891635) BUN (test code = 22 mg/dL 7-23 9890816373) GLUCOSE (test code = 87 mg/dL 70-110 9339656852) CREATININE (test code 1.21 mg/dL 0.60-1.25 = 2272450709) CALCIUM (test code = 8.7 mg/dL 8.6-10.6 7355001976) eGFR (test code = mL/min/1.73m2 8720169738) GILBERTO (test code = GILBERTO) Association of [...] or urine or abnormalities in imaging tests). [facility] Metabolic Panel (NA, K, CL, CO2, GLUCOSE, BUN, CREATININE, CA)2021-05-08 10:32:35 Test Item Value Reference Range Interpretation Comments NA (test code = 135 mmol/L 135-145 1041548545) K (test code = 4.2 mmol/L 3.5-5.0 6353302604) CL (test code = 106 mmol/L 98-108 3149187465) CO2 TOTAL (test code 23 mmol/L 23-31 = 6598879438) AGAP (test code = 2-16 8591511832) BUN (test code = 22 mg/dL 7-23 1220795389) GLUCOSE (test code = 87 mg/dL 70-110 6834561990) CREATININE (test code 1.21 mg/dL 0.60-1.25 = 4502850821) CALCIUM (test code = 8.7 mg/dL 8.6-10.6 0346630847) eGFR (test code = mL/min/1.73m2 7244700436) GILBERTO (test code = GILBERTO) Association of [...] or urine or abnormalities in imaging tests). [facility] with Lmewebricuoa0562-09-44 10:12:52 Test Item Value Reference Range Interpretation Comments WBC (test code = See_Comment [Automated 2790-2) message] The sy stem which generated this result transmitted reference range : 4.20 - 10.70 10*3/?L. The reference range was not used to interpret this result as normal/abnormal . RBC (test code = See_Comment L [Automated 769-8) message] The sy stem which generated this [...] RDW-SD (test code = 48.4 fL 38.5-51.6 71824-5) RDW-CV (test code = 14.0 % 12.1-15.4 788-0) PLT (test code = See_Comment [Automated 777-3) message] The sy stem which generated this result transmitted reference range : 150 - 328 10*3/ ?L. The reference r meredith was not used to interpret this result as normal/abnormal . MPV (test code = 9.6 fL 9.8-13.0 L 95362-9) NRBC/100 WBC (test See_Comment [Automat ed code = 6789438489) message] The system which generated this result transmitted reference range : 0.0 - 10.0 /100 WBCs. The refer ence range was not u sed to interpret th is result as normal/abnormal . NRBC x10^3 (test code <0.01 See_Comment [Auto mated = 2301257178) message] The s ystem which generated this result transmitted reference range : 10*3/?L. The reference range was not used to interpret this result as normal/abnormal . GRAN MAT (NEUT) % 55.6 % (test code = 770-8) IMM GRAN % (test code 0.20 % = 9955903430) LYMPH % (test code = 31.5 % 736-9) MONO % (test code = 9.9 % 5905-5) EOS % (test code = 2.0 % 713-8) BASO % (test code = 0.8 % 706-2) GRAN MAT x10^3(ANC) 2.76 10*3/uL 1.99-6.95 (test code = 9961831936) IMM GRAN x10^3 (test <0.03 0.00-0.06 code = 6220771529) LYMPH x10^3 (test code 1.56 10*3/uL 1.09-3.23 = 731-0) MONO x10^3 (test code 0.49 10*3/uL 0.36-1.02 = 742-7) EOS x10^3 (test code = 0.10 10*3/uL 0.06-0.53 711-2) BASO x10^3 (test code 0.04 10*3/uL 0.01-0.09 = 704-7) Lab Interpretation Abnormal (test code = 85992-1) [facility] with Qlmgcvmsricy0807-88-88 10:12:52 Test Item Value Reference Range Interpretation [...] RDW-SD (test code = 48.4 fL 38.5-51.6 04856-9) RDW-CV (test code = 14.0 % 12.1-15.4 788-0) PLT (test code = See_Comment [Automated 777-3) message] The sy stem which generated this result transmitted reference range : 150 - 328 10*3/ ?L. The reference r meredith was not used to interpret this result as normal/abnormal . MPV (test code = 9.6 fL 9.8-13.0 L 20426-2) NRBC/100 WBC (test See_Comment [Automat ed code = 0125252359) message] The system which generated this result transmitted reference range : 0.0 - 10.0 /100 WBCs. The refer ence range was not u sed to interpret th is result as normal/abnormal . NRBC x10^3 (test code <0.01 See_Comment [Auto mated = 0384680423) message] The s ystem which generated this result transmitted reference range : 10*3/?L. The reference range was not used to interpret this result as normal/abnormal . GRAN MAT (NEUT) % 55.6 % (test code = 770-8) IMM GRAN % (test code 0.20 % = 0715252983) LYMPH % (test code = 31.5 % 736-9) MONO % (test code = 9.9 % 5905-5) EOS % (test code = 2.0 % 713-8) BASO % (test code = 0.8 % 706-2) GRAN MAT x10^3(ANC) 2.76 10*3/uL 1.99-6.95 (test code = 0451198104) IMM GRAN x10^3 (test <0.03 0.00-0.06 code = 8057368863) LYMPH x10^3 (test code 1.56 10*3/uL 1.09-3.23 = 731-0) MONO x10^3 (test code 0.49 10*3/uL 0.36-1.02 = 742-7) EOS x10^3 (test code = 0.10 10*3/uL 0.06-0.53 711-2) BASO x10^3 (test code 0.04 10*3/uL 0.01-0.09 = 704-7) Lab Interpretation Abnormal (test code = 33720-6) [facility] METABOLIC PANEL (NA, K, CL, CO2, GLUCOSE, BUN, CREATININE, CA)2021-05-08 01:11:57 Test Item Value Reference Range Interpretation Comments NA (test code = 134 mmol/L 135-145 L 2424440017) K (test code = 4.7 mmol/L 3.5-5.0 8304525267) CL (test code = 100 mmol/L 98-108 2597167810) CO2 TOTAL (test code = 24 mmol/L 23-31 9775695480) AGAP (test code = 2-16 2262227853) BUN (test code = 27 mg/dL 7-23 H 9951538168) GLUCOSE (test code = 94 mg/dL 70-110 7277762006) CREATININE (test code = 1.31 mg/dL 0.60-1.25 H 7759286897) CALCIUM (test code = 9.5 mg/dL 8.6-10.6 1652791296) eGFR (test code = mL/min/1.73m2 2733981042) GILBERTO (test code = GILBERTO) Association of [...] tests). Lab Interpretation Abnormal (test code = 55846-3) [facility] (ALB,T.PRO,BILI T,BU/BC,ALT,AST,ALK PHOS)2021-05-08 01:11:57 Test Item Value Reference Range Interpretation Comments TOTAL BILI (test code = 6521681589) 0.8 mg/dL 0.1-1.1 BILI UNCON (test code = 2014825185) 0.2 mg/dL 0.1-1.1 BILI CONJ (test code = 4594581763) 0.0 mg/dL 0.0-0.3 T PROTEIN (test code = 3698546973) 7.1 g/dL 6.3-8.2 ALBUMIN (test code = 7296704819) 4.4 g/dL 3.5-5.0 ALK PHOS (test code = 2811892818) 88 U/L 34-122 ALTv (test code = 1742-6) 40 U/L 5-50 AST(SGOT) (test code = 6938399918) 38 U/L 13-40 Lab Interpretation (test code = Normal 79912-6) [facility] METABOLIC PANEL (NA, K, CL, CO2, GLUCOSE, BUN, CREATININE, CA)2021-05-08 01:11:57 Test Item Value Reference Range Interpretation Comments NA (test code = 134 mmol/L 135-145 L 7242235775) K (test code = 4.7 mmol/L 3.5-5.0 0422739260) CL (test code = 100 mmol/L 98-108 9446970624) CO2 TOTAL (test code = 24 mmol/L 23-31 7706066249) AGAP (test code = 2-16 7454441346) BUN (test code = 27 mg/dL 7-23 H 8123363285) GLUCOSE (test code = 94 mg/dL 70-110 4009017575) CREATININE (test code = 1.31 mg/dL 0.60-1.25 H 1346947631) CALCIUM (test code = 9.5 mg/dL 8.6-10.6 5470872260) eGFR (test code = mL/min/1.73m2 8267867789) GILBERTO (test code = GILBERTO) Association of [...] tests). Lab Interpretation Abnormal (test code = 05608-0) [facility]91350[facility] (ALB,T.PRO,BILI T,BU/BC,ALT,AST,ALK PHOS)2021-05-08 01:11:57 Test Item Value Reference Range Interpretation Comments TOTAL BILI (test code = 8956308106) 0.8 mg/dL 0.1-1.1 BILI UNCON (test code = 3175688444) 0.2 mg/dL 0.1-1.1 BILI CONJ (test code = 6759375652) 0.0 mg/dL 0.0-0.3 T PROTEIN (test code = 3405351810) 7.1 g/dL 6.3-8.2 ALBUMIN (test code = 2961834232) 4.4 g/dL 3.5-5.0 ALK PHOS (test code = 0881216116) 88 U/L 34-122 ALTv (test code = 1742-6) 40 U/L 5-50 AST(SGOT) (test code = 3343202958) 38 U/L 13-40 Lab Interpretation (test code = Normal 21659-7) [facility] [id number] 00:59:56 Test Item Value Reference Range Interpretation Comments WBC (test code = See_Comment [Automated 5095-2) message] The sy stem which generated this result transmitted reference range : 4.20 - 10.70 10*3/?L. The reference range was not used to interpret this result as normal/abnormal . RBC (test code = See_Comment L [Automated 723-8) message] The sy stem which generated this [...] RDW-SD (test code = 46.9 fL 38.5-51.6 28951-2) RDW-CV (test code = 13.9 % 12.1-15.4 788-0) PLT (test code = See_Comment [Automated 777-3) message] The sy stem which generated this result transmitted reference range : 150 - 328 10*3/ ?L. The reference r meredith was not used to interpret this result as normal/abnormal . MPV (test code = 10.0 fL 9.8-13.0 62776-9) NRBC/100 WBC (test See_Comment [Automat ed code = [id number]) message] The system which generated this result transmitted reference range : 0.0 - 10.0 /100 WBCs. The refer ence range was not u sed to interpret th is result as normal/abnormal . NRBC x10^3 (test code <0.01 See_Comment [Auto mated = [id number]) message] The s ystem which generated this result transmitted reference range : 10*3/?L. The reference range was not used to interpret this result as normal/abnormal . GRAN MAT (NEUT) % 53.9 % (test code = 770-8) IMM GRAN % (test code 0.30 % = 6501014553) LYMPH % (test code = 32.0 % 736-9) MONO % (test code = 11.6 % 5905-5) EOS % (test code = 1.6 % 713-8) BASO % (test code = 0.6 % 706-2) GRAN MAT x10^3(ANC) 3.67 10*3/uL 1.99-6.95 (test code = 9041029628) IMM GRAN x10^3 (test <0.03 0.00-0.06 code = [id number]) LYMPH x10^3 (test code 2.18 10*3/uL 1.09-3.23 = 731-0) MONO x10^3 (test code 0.79 10*3/uL 0.36-1.02 = 742-7) EOS x10^3 (test code = 0.11 10*3/uL 0.06-0.53 711-2) BASO x10^3 (test code 0.04 10*3/uL 0.01-0.09 = 704-7) Lab Interpretation Abnormal (test code = 42933-6) [facility] WITH [id number] 00:59:56 Test Item Value Reference Range Interpretation [...] RDW-SD (test code = 46.9 fL 38.5-51.6 40066-0) RDW-CV (test code = 13.9 % 12.1-15.4 788-0) PLT (test code = See_Comment [Automated 777-3) message] The sy stem which generated this result transmitted reference range : 150 - 328 10*3/ ?L. The reference r meredith was not used to interpret this result as normal/abnormal . MPV (test code = 10.0 fL 9.8-13.0 26420-0) NRBC/100 WBC (test See_Comment [Automat ed code = 9932913629) message] The system which generated this result transmitted reference range : 0.0 - 10.0 /100 WBCs. The refer ence range was not u sed to interpret th is result as normal/abnormal . NRBC x10^3 (test code <0.01 See_Comment [Auto mated = 0738994661) message] The s ystem which generated this result transmitted reference range : 10*3/?L. The reference range was not used to interpret this result as normal/abnormal . GRAN MAT (NEUT) % 53.9 % (test code = 770-8) IMM GRAN % (test code 0.30 % = 6653862739) LYMPH % (test code = 32.0 % 736-9) MONO % (test code = 11.6 % 5905-5) EOS % (test code = 1.6 % 713-8) BASO % (test code = 0.6 % 706-2) GRAN MAT x10^3(ANC) 3.67 10*3/uL 1.99-6.95 (test code = 6037828063) IMM GRAN x10^3 (test <0.03 0.00-0.06 code = 1261226908) LYMPH x10^3 (test code 2.18 10*3/uL 1.09-3.23 = 731-0) MONO x10^3 (test code 0.79 10*3/uL 0.36-1.02 = 742-7) EOS x10^3 (test code = 0.11 10*3/uL 0.06-0.53 711-2) BASO x10^3 (test code 0.04 10*3/uL 0.01-0.09 = 704-7) Lab Interpretation Abnormal (test code = 82670-8) [facility] W/AUTO [id number] 09:20:00 Test Item Value Reference Range Interpretation [...] (test code NO = MDIFF) CBC W/AUTO [id number] 08:59:00 Test Item Value Reference Range Interpretation [...] REQUIRED (test code = MDIFF) BASIC METABOLIC [id number] 08:21:00 Test Item Value Reference Range Interpretation [...] 8.4 mg/dL 8.0-10.5 N CA) BASIC METABOLIC [id number] 08:34:00 Test Item Value Reference Range Interpretation [...] 8.4 mg/dL 8.0-10.5 N CA) CBC W/AUTO [id number] 07:41:00 Test Item Value Reference Range Interpretation [...] = MDIFF) UA RFLX MICR CULT IF [id number] 10:10:00 Test Item Value Reference Range Interpretation [...] Suprapubic Pain Temperature > 100.4 FSpecimen Description: [facility] [id number] 04:13:00 Test Item Value Reference Range Interpretation [...] mg/dL 8.0-10.5 N CA) Coronavirus 2019 nCoV [id number] 22:03:00 Test Item Value Reference Range Interpretation Comments Coronavirus 2019 Negative Negative Performed b y certified nCoV 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 Negative result s do not preclude GEXY-UpV-6phayi tion and should not be u sed as the sole basis forp atient management deci sions. Negative result s should beconsidered in the context of a patient's recent exposures,histo ry, presence of clinical sig ns and symptoms consis tentwith COVID-19. CBC W/AUTO [id number] 21:11:00 Test Item Value Reference Range Interpretation [...] MX#) 0.6 k/mm3 0.1-0.8 N BASIC METABOLIC [id number] 19:00:00 Test Item Value Reference Range Interpretation [...] POCGLU) 92 MG/DL - CT ABD PELVIS [id number] 00:00:00 [facility] 1970 Sex: MName: DORA JOSEPH FSED : 1970 Age/S: 51 / M [address] [facility] Unit #: [id number] Loc: [place] [address] Phys: Marcello Benoit MD Acct: [id number] Dis Date: [facility] Exam Date: 04/28/20211913 FAX #: Reason: epigastric and LLQ pain, R-sided colostomy EXAMS:CPT CODE: [id number] CT ABD PELVIS W/CONT 59963 PROCEDURE INFORMATION: Exam: CT Abdomen And Pelvis With Contrast Exam date and time: 04/28/2021 7:11 PM Age: 51 years old Clinical indication: Abdominal pain; Additional info: Epigastric and llq pain, r-sided colostomy TECHNIQUE: Imaging protocol: Computedtomography of the abdomen and pelvis with contrast. [...] with subsegmental atelectasis or scarring. There is noconsolidation. Diaphragm: Stable elevation left hemidiaphragm. 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 The remaining right lobe of liver is unremarkable. The portal venous system is patent. Gallbladder and bile ducts: The gallbladder is contracted, otherwise unremarkable. There is no biliary dilatation. Pancreas: Normal. No ductal dilation. Spleen: Normal. No splenomegaly. Adrenal glands: Normal. Nom[place]. Kidneys and ureters: Normal. No hydronephrosis. Stomach [...] Name: DORA JOSEPH FSED : 1970 Age/S: 51/ M [address] [facility] Unit #: [id number] Loc: [place] [address] Phys: Marcello Benoit MD Acct: [id number] Dis Date: Status: REG ER PHONE #: Exam Date: 04/28/2021 3848 FAX #: Reason: epigastricand LLQ pain, R-sided colostomy EXAMS: CPT CODE: [id number] CT ABD PELVIS W/CONT 95841 <Continued> Reproductive: Unremarkable as visualized. Bones/joints: Unremarkable. No acute fracture. Soft tissues: Unremarkable. IMPRESSION: 1. 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 2. Mild long segment bowel wall thickening/mucosal prominence compatible with an enteritis. No evidence for obstruction. at 1956 Reported and signed by: Hector Nichols M.D. CC: Marcello Benoit MD Technologist:Stephanie Albrecht RT(R)(CT) CTDI: DLP: Trnscb Date/Time: 04/28/2021 (1955) Magi Orig Print D/T: S: 04/28/2021 (1955) PAGE 2 Signed ReportBasic Metabolic Panel (NA, K, CL, CO2, GLUCOSE, BUN, CREATININE, CA)2020-08-23 10:29:00 Test Item Value Reference Range Interpretation Comments NA (test code = 139 mmol/L 135-145 3215223925) K (test code = 4.0 mmol/L 3.5-5 3162399813) CL (test code = 108 mmol/L 98-108 9788904731) CO2 TOTAL (test code = 22 mmol/L 23-31 L 7703329826) AGAP (test code = 2-16 0624364674) BUN (test code = 25 mg/dL 7-23 H 1378615704) GLUCOSE (test code = 91 mg/dL 70-110 5406227276) CREATININE (test code = 1.14 mg/dL 0.6-1.25 7413278398) CALCIUM (test code = 8.9 mg/dL 8.6-10.6 4954489400) eGFR Calculation mL/min/1.73m2 (Non-) (test code = 3591891552) eGFR Calculation mL/min/1.73m2 () (test code = 1111425581) GILBERTO (test code = GILBERTO) Association of [...] tests). Lab Interpretation Abnormal (test code = 14904-9) [facility] / [id number] 10:13:00 Test Item Value Reference Range Interpretation Comments WBC (test code = 6690-2) See_Comment [A utomated message] The system Sticky generated this result transmit dain reference range : 4.20 - 10.70 10*3/?L. The reference range was not used to interpret this result as normal/abnormal . RBC (test code = 789-8) See_Comment L [Au tomated message] The system Sticky generated this result transmit dain reference range [...] 777-3) See_Comment [Au tomated message] The system Sticky generated this result transmit dain reference range : 150 - 328 10*3/?L. The reference range was not used to interpret this result as normal/abnormal . MPV (test code = 9.0 fL 9.8-13 L 53251-8) RDW-CV (test code = 18.7 % 12.1-15.4 H 788-0) RDW-SD (test code = 59.7 fL 38.5-51.6 H 92720-4) NRBC x10^3 (test code = <0.01 See_Comment [Au tomated message] 0226506457) The system Sticky generated this result transmit dain reference range : 10*3/?L. The reference range was not used to interpret this result as normal/abnormal . NRBC/100 WBC (test code See_Comment [Au tomated message] = 1881047412) The system [employer] generated this result transmit dain reference range : 0.0 - 10.0 /100 WBC s. The reference r meredith was not used to interpret this result as normal/abnormal . IPF % (test code = 5979736098) Lab Interpretation (test Abnormal code = 34470-2) [facility]OVID[facility] (ID NOW RAPID TESTING)2020-08-23 00:56:00 Test Item Value Reference Range Interpretation Comments SARS-CoV-2 Rapid ID NOW Not Detected Not Detected (test code = 03773-8) GILBERTO (test code = GILBERTO) ID NOW COVID-19 Assay is an isothermal nucleic acid amplification test intended for the qualitative detection of nucleic acid from SARS-CoV-2 viral RNA in nasopharyngeal (PRODUCT SAFETY OFFICER) specimens. It is used under Emergency Use [...] indicated. Lab Interpretation Normal (test code = 77250-5) [facility] Metabolic Panel (NA, K, CL, CO2, GLUCOSE, BUN, CREATININE, CA)2020-08-22 22:36:00 Test Item Value Reference Range Interpretation Comments NA (test code = 133 mmol/L 135-145 L 1980868895) K (test code = 4.5 mmol/L 3.5-5 5809133337) CL (test code = 104 mmol/L 98-108 7527218904) CO2 TOTAL (test code = 25 mmol/L 23-31 1587088054) AGAP (test code = 2-16 7441810571) BUN (test code = 27 mg/dL 7-23 H 5432973358) GLUCOSE (test code = 94 mg/dL 70-110 0964409271) CREATININE (test code = 1.33 mg/dL 0.6-1.25 H 5540540907) CALCIUM (test code = 9.5 mg/dL 8.6-10.6 7094282742) eGFR Calculation mL/min/1.73m2 (Non-) (test code = 5409457097) eGFR Calculation mL/min/1.73m2 () (test code = 6863967091) GILBERTO (test code = GILBERTO) Association of [...] tests). Lab Interpretation Abnormal (test code = 85651-7) [facility] (ALB, T.PRO, BILI T, BU/BC, ALT, AST, ALK PHOS)2020-08-22 22:36:00 Test Item Value Reference Range Interpretation Comments TOTAL BILI (test code = 3727072141) 0.4 mg/dL 0.1-1.1 BILI UNCON (test code = 3030333211) 0.1 mg/dL 0.1-1.1 BILI CONJ (test code = 1350676164) 0.0 mg/dL 0-0.3 T PROTEIN (test code = 1143368454) 6.8 g/dL 6.3-8.2 ALBUMIN (test code = 9104862549) 4.0 g/dL 3.5-5 ALK PHOS (test code = 8190314021) 78 U/L 34-122 ALTv (test code = 1742-6) 35 U/L 5-50 AST(SGOT) (test code = 8002691917) 29 U/L 13-40 Lab Interpretation (test code = Normal 57260-9) [facility]oCBC with [id number] 22:15:00 Test Item Value Reference Range Interpretation Comments WBC (test code = See_Comment [Automated 0090-2) message] The sy stem which generated this result transmitted reference range : 4.20 - 10.70 10*3/?L. The reference range was not used to interpret this result as normal/abnormal . RBC (test code = See_Comment L [Automated 829-8) message] The sy stem which generated this [...] (test code = 60.6 fL 38.5-51.6 H 37238-8) RDW-CV (test code = 19.0 % 12.1-15.4 H 788-0) PLT (test code = See_Comment [Automated 777-3) message] The sy stem which generated this result transmitted reference range : 150 - 328 10*3/ ?L. The reference r meredith was not used to interpret this result as normal/abnormal . MPV (test code = 9.3 fL 9.8-13 L 97816-7) NRBC/100 WBC (test See_Comment [Automat ed code = 7116272381) message] The system which generated this result transmitted reference range : 0.0 - 10.0 /100 WBCs. The refer ence range was not u sed to interpret th is result as normal/abnormal . NRBC x10^3 (test code <0.01 See_Comment [Auto mated = 5224576569) message] The s ystem which generated this result transmitted reference range : 10*3/?L. The reference range was not used to interpret this result as normal/abnormal . GRAN MAT (NEUT) % 58.6 % (test code = 770-8) IMM GRAN % (test code 0.60 % = 5095384804) LYMPH % (test code = 28.2 % 736-9) MONO % (test code = 9.5 % 5905-5) EOS % (test code = 2.4 % 713-8) BASO % (test code = 0.7 % 706-2) GRAN MAT x10^3(ANC) 3.14 10*3/uL 1.99-6.95 (test code = 3226289744) IMM GRAN x10^3 (test 0.03 10*3/uL 0-0.06 code = 0229671383) LYMPH x10^3 (test code 1.51 10*3/uL 1.09-3.23 = 731-0) MONO x10^3 (test code 0.51 10*3/uL 0.36-1.02 = 742-7) EOS x10^3 (test code = 0.13 10*3/uL 0.06-0.53 711-2) BASO x10^3 (test code 0.04 10*3/uL 0.01-0.09 = 704-7) Lab Interpretation Abnormal (test code = 69347-6) [facility]oCT SOFT TISSUE NECK W [id number] 00:47:10Impression: 1. Patent aerodigestive tract.2. No discrete fluid collection or abscess is identified. RL: 2827 End of Report Exam: CT Neck With Contrast, 07/09/2020 5:30 PM. Ordering Physician: JUAN M AGUILLON. History: Sore throat, difficulty swallowing. Technique: CT [...] glands are normal. Thyroid gland is unremarkable. Cat And Dog Bather spaces are normal. Buccal spaces are normal. [...] Contrast, 07/09/2020 5:30 PM.Ordering Physician: JUAN M AGUILLON.History: Sore throat, difficulty swallowing.Technique: CT neck was [...] submandibular glands are normal. Thyroid gland is unremarkable.Cat And Dog Bather spaces are normal. Buccal spaces are normal. [...] or abscess is identified.RL: 2824End of Report [facility] ([facility] RAPID TESTING)2020-07-09 23:23:00 Test Item Value Reference Range Interpretation Comments SARS-CoV-2 Rapid ID NOW Not Detected Not Detected (test code = 63292-7) GILBERTO (test code = GILBERTO) ID NOW COVID-19 Assay is an isothermal nucleic acid amplification test intended for the qualitative detection of nucleic acid from SARS-CoV-2 viral RNA in nasopharyngeal (PRODUCT SAFETY OFFICER) specimens. It is used under Emergency Use [...] indicated. Lab Interpretation Normal (test code = 56239-0) [facility]aredoUrinalysis2020-11-16 23:21:00 Test Item Value Reference Range Interpretation Comments APPEARANCE (test code = Clear Clear 3072857107) COLOR (test code = Yellow Yellow 9346310987) PH (test code = 4.8-8.0 4758544204) SP GRAVITY (test code = 1.003-1.030 2975660494) GLU U QUAL (test code = Normal Normal 3249913250) BLOOD (test code = Negative Negative 8763228581) KETONES (test code = Negative Negative 2583993822) PROTEIN (test code = 30 mg/dL Negative A 2887-8) UROBILIN (test code = Normal Normal 3935150254) BILIRUBIN (test code = Negative Negative 6362099642) NITRITE (test code = Negative Negative 3131184801) LEUK ROGER (test code = Negative Negative 4946726220) RBC/HPF (test code = <1 See_Comment [Autom ated message] 2372968272) The system [employer] generated this result transmitted ref erence range: 0 - 3 HP F. The reference range was not used to int erpret this result as normal/abnormal . WBC/HPF (test code = See_Comment [Autom ated message] 7706815548) The system [employer] generated this result transmitted ref erence range: 0 - 5 HP F. The reference range was not used to int erpret this result as normal/abnormal . BACTERIA (test code = Negative Negative 0029658333) MUCOUS (test code = Moderate Negative LPF A 5834435383) HYAL CAST (test code = See_Comment H [Aut omated message] 6283968497) The system Sticky generated this result transmitted ref erence range: <=2 LPF. The reference range was not used to int erpret this result as normal/abnormal . Lab Interpretation (test Abnormal code = 46317-7) [facility] (NA, K, CL, CO2, GLUCOSE, BUN, CREATININE, CA)2020-07-09 23:20:00 Test Item Value Reference Range Interpretation Comments NA (test code = 135 mmol/L 135-145 6913239703) K (test code = 3.9 mmol/L 3.5-5 6182686479) CL (test code = 107 mmol/L 98-108 2079835009) CO2 TOTAL (test code = 20 mmol/L 23-31 L 2734255024) AGAP (test code = 2-16 7211074052) BUN (test code = 27 mg/dL 7-23 H 5509584932) GLUCOSE (test code = 86 mg/dL 70-110 8036713185) CREATININE (test code = 1.11 mg/dL 0.6-1.25 0572715711) CALCIUM (test code = 9.0 mg/dL 8.6-10.6 5585626095) eGFR Calculation mL/min/1.73m2 (Non-) (test code = 2878841764) eGFR Calculation mL/min/1.73m2 () (test code = 6749290164) GILBERTO (test code = GILBERTO) Association of [...] tests). Lab Interpretation Abnormal (test code = 21520-2) [facility]aredoRAPID STREP SCREEN FOR GROUP [id number] 23:11:00 Test Item Value Reference Range Interpretation Comments Streptococcus pyogenes (group A) Negative Negative antigen (test code = 46516-7) Lab Interpretation (test code = Normal 78391-0) [facility]aredoCB with [id number] 23:02:00 Test Item Value Reference Range Interpretation [...] (test code = 55.5 fL 38.5-51.6 H 92322-7) RDW-CV (test code = 18.9 % 12.1-15.4 H 788-0) PLT (test code = See_Comment [Automated 777-3) message] The sy stem which generated this result transmitted reference range : 150 - 328 10*3/ ?L. The reference r meredith was not used to interpret this result as normal/abnormal . MPV (test code = 8.9 fL 9.8-13 L 42146-3) NRBC/100 WBC (test See_Comment [Automat ed code = 6938071132) message] The system which generated this result transmitted reference range : 0.0 - 10.0 /100 WBCs. The refer ence range was not u sed to interpret th is result as normal/abnormal . NRBC x10^3 (test code <0.01 See_Comment [Auto mated = 8977583804) message] The s ystem which generated this result transmitted reference range : 10*3/?L. The reference range was not used to interpret this result as normal/abnormal . GRAN MAT (NEUT) % 59.4 % (test code = 770-8) IMM GRAN % (test code 0.20 % = 2549729352) LYMPH % (test code = 29.9 % 736-9) MONO % (test code = 9.0 % 5905-5) EOS % (test code = 1.2 % 713-8) BASO % (test code = 0.3 % 706-2) GRAN MAT x10^3(ANC) 3.56 10*3/uL 1.99-6.95 (test code = 0967911798) IMM GRAN x10^3 (test <0.03 0-0.06 code = 4154766911) LYMPH x10^3 (test code 1.79 10*3/uL 1.09-3.23 = 731-0) MONO x10^3 (test code 0.54 10*3/uL 0.36-1.02 = 742-7) EOS x10^3 (test code = 0.07 10*3/uL 0.06-0.53 711-2) BASO x10^3 (test code <0.03 0.01-0.09 = 704-7) Lab Interpretation Abnormal (test code = 37199-0) [facility]oUrinalysis2020-10-13 13:37:00 Test Item Value Reference Range Interpretation Comments APPEARANCE (test code = Hazy Clear A 2755546810) COLOR (test code = Yellow Yellow 5071471861) PH (test code = 4.8-8.0 6783569211) SP GRAVITY (test code = 1.003-1.030 H 7783963752) GLU U QUAL (test code = Normal Normal 5609111222) BLOOD (test code = Negative Negative 2455371384) KETONES (test code = Negative Negative 4172347429) PROTEIN (test code = Negative Negative 2887-8) UROBILIN (test code = Normal Normal 9627325113) BILIRUBIN (test code = Negative Negative 2738689537) NITRITE (test code = Negative Negative 3612889331) LEUK ROGER (test code = Negative Negative 1476636064) RBC/HPF (test code = See_Comment H [Autom ated message] 4171254924) The system [employer] generated this result transmitted ref erence range: 0 - 3 HP F. The reference range was not used to int erpret this result as normal/abnormal . WBC/HPF (test code = See_Comment [Autom ated message] 0363669016) The system [employer] generated this result transmitted ref erence range: 0 - 5 HP F. The reference range was not used to int erpret this result as normal/abnormal . BACTERIA (test code = Negative Negative 2469803243) MUCOUS (test code = Moderate Negative LPF A 8411886669) CA OXALATE (test code = See_Comment [Au tomated message] 5719250341) The system [employer] generated this result transmitted ref erence range: <=1 HPF. The reference range was not used to int erpret this result as normal/abnormal . SPERM (test code = See_Comment H [Automat ed message] 4668860510) The system [employer] generated this result transmitted ref erence range: <=1 HPF. The reference range was not used to int erpret this result as normal/abnormal . HYAL CAST (test code = See_Comment H [Aut omated message] 5864862916) The system [employer] generated this result transmitted ref erence range: <=2 LPF. The reference range was not used to int erpret this result as normal/abnormal . Lab Interpretation (test Abnormal code = 70813-6) [facility]oCT ABDOMEN PELVIS W [id number] 13:22:00CT Abdomen and Pelvis with intravenous contrast. [...] sign of infection. Left seminal vesicleshowed no significantenhancement.[facility]aredoTroponin [id number] 12:40:00 Test Item Value Reference Range Interpretation Comments TROPONIN I (test <0.012 See_Comment [Automated code = 2266111430) message] The system which generated this result [...] ? Lab Interpretation Normal (test code = 92204-9) [facility]oBasi Metabolic Panel (NA, K, CL, CO2, GLUCOSE, BUN, CREATININE, CA)2020-06-05 12:28:00 Test Item Value Reference Range Interpretation Comments NA (test code = 139 mmol/L 135-145 0090639765) K (test code = 4.4 mmol/L 3.5-5 8360409656) CL (test code = 112 mmol/L 98-108 H 5367348341) CO2 TOTAL (test code = 24 mmol/L 23-31 4108749275) AGAP (test code = 2-16 3946419725) BUN (test code = 23 mg/dL 7-23 5407476471) GLUCOSE (test code = 88 mg/dL 70-110 6397061498) CREATININE (test code = 0.96 mg/dL 0.6-1.25 5502405023) CALCIUM (test code = 9.5 mg/dL 8.6-10.6 5187676817) eGFR Calculation mL/min/1.73m2 (Non-) (test code = 3934733675) eGFR Calculation mL/min/1.73m2 () (test code = 9209230802) GILBERTO (test code = GILBERTO) Association of [...] tests). Lab Interpretation Abnormal (test code = 94237-7) [facility]atic Function Panel (ALB, T.PRO, BILI T, BU/BC, ALT, AST, ALK PHOS)2020-06-05 12:28:00 Test Item Value Reference Range Interpretation Comments TOTAL BILI (test code = 7909670210) 0.5 mg/dL 0.1-1.1 BILI UNCON (test code = 8651253168) 0.3 mg/dL 0.1-1.1 BILI CONJ (test code = 1934747148) 0.0 mg/dL 0-0.3 T PROTEIN (test code = 5185104824) 6.6 g/dL 6.3-8.2 ALBUMIN (test code = 0791081098) 3.7 g/dL 3.5-5 ALK PHOS (test code = 9238647171) 79 U/L 34-122 ALTv (test code = 1742-6) 23 U/L 5-50 AST(SGOT) (test code = 0043939230) 27 U/L 13-40 Lab Interpretation (test code = Normal 97379-4) [facility] LaredoLipase [id number] 12:28:00 Test Item Value Reference Range Interpretation Comments LIPASE (test code = 3633016695) 150 U/L 0-220 Lab Interpretation (test code = Normal 48081-9) [facility]oCB with Nnwbwvmrplpe9013-55-49 12:11:00 Test Item Value Reference Range Interpretation Comments WBC (test code = See_Comment [Automated 6690-2) message] The sy stem which generated this result transmitted reference range : 4.20 - 10.70 10*3/?L. The reference range was not used to interpret this result as normal/abnormal . RBC (test code = See_Comment L [Automated 279-8) message] The sy stem which generated this [...] (test code = 62.2 fL 38.5-51.6 H 12858-6) RDW-CV (test code = 20.0 % 12.1-15.4 H 788-0) PLT (test code = See_Comment [Automated 777-3) message] The sy stem which generated this result transmitted reference range : 150 - 328 10*3/ ?L. The reference r meredith was not used to interpret this result as normal/abnormal . MPV (test code = 10.0 fL 9.8-13 84600-3) NRBC/100 WBC (test See_Comment [Automat ed code = 8451594343) message] The system which generated this result transmitted reference range : 0.0 - 10.0 /100 WBCs. The refer ence range was not u sed to interpret th is result as normal/abnormal . NRBC x10^3 (test code <0.01 See_Comment [Auto mated = 3680210597) message] The s ystem which generated this result transmitted reference range : 10*3/?L. The reference range was not used to interpret this result as normal/abnormal . GRAN MAT (NEUT) % 65.7 % (test code = 770-8) IMM GRAN % (test code 0.30 % = 6718670203) LYMPH % (test code = 21.2 % 736-9) MONO % (test code = 10.0 % 5905-5) EOS % (test code = 2.3 % 713-8) BASO % (test code = 0.5 % 706-2) GRAN MAT x10^3(ANC) 3.99 10*3/uL 1.99-6.95 (test code = 2604732182) IMM GRAN x10^3 (test <0.03 0-0.06 code = 0221113782) LYMPH x10^3 (test code 1.29 10*3/uL 1.09-3.23 = 731-0) MONO x10^3 (test code 0.61 10*3/uL 0.36-1.02 = 742-7) EOS x10^3 (test code = 0.14 10*3/uL 0.06-0.53 711-2) BASO x10^3 (test code 0.03 10*3/uL 0.01-0.09 = 704-7) Lab Interpretation Abnormal (test code = 92211-8) [facility] LaredoLactic Acid Whole [id number] 12:04:00 Test Item Value Reference Range Interpretation Comments LACTIC ACID (test code = 1.23 mmol/L 9729555653) [facility]oIR ABSCESS DRAIN [id number] 14:57:23 Successful abscessogram demonstrated unchanged position of [...] present inthe room during the entire procedure. I, Sadiq Walsh MD., have reviewed this study and agree [...] consentwas obtained. Prior to beginning the procedure, [place] Protocol was usedtoconfirm the patient's identity and planned procedure. Maximum sterilebarriers including cap, mask, momin nd hygiene, sterile gloves, sterile gown,large sterile drape and cutaneous antisepsis were used. Theskin overlying the existing drainage catheter in the right upperquadrant of the abdomen was sterilely prepped, draped and infiltrated with1 percent lidocaine. A shoe sticks repairer image was documented prior to the injection [...] drainage catheter and with questionablefistulization to bowel. [facility], Radiant Results Inft User - 05/31/2020 9:58 AM CDTEXAMINATION: PERCUTANEOUS PERIHEPATIC ABSCESS DRAINAGE CATHETEREVALUATION/EXCHANGE.HISTORY: 50 years-old; Male; s/p Drain placement in right abdomen fluidcollection. No output for 3 consecutive days. Please eval for possibleremoval.ATTENDEES: Attending radiologist: Dr. Sadiq Gordon; Resident: Dr. Johnny Tilley;[facility] VIR resident: Dr. Leeanna Valenzuela.SEDATION: No moderate sedation was administered for this procedure.RADIATION DOSE: 7.7 mGy.TECHNIQUE: The risks, benefits and alternatives were discussed and informed consentwas obtained. Prior to beginning the procedure, [place] Protocol was usedto confirm the patient's identity and planned procedure. Maximum sterilebarriers including cap, mask, hand hygiene, sterile gloves, sterile gown,large sterile drape and cutaneous antisepsis were used. The skin overlying the existing drainage catheter in the right upperquadrant of the abdomen was sterilely prepped, draped and infiltrated with1 percent lidocaine. A shoe sticks repairer image was documented prior to the injection [...] this study and agree with theabove report. [facility] (NA, K, CL, CO2, GLUCOSE, BUN, CREATININE, CA)2020-05-31 08:13:00 Test Item Value Reference Range Interpretation Comments NA (test code = 135 mmol/L 135-145 9874098353) K (test code = 4.1 mmol/L 3.5-5 6672981163) CL (test code = 99 mmol/L 98-108 8919300341) CO2 TOTAL (test code = 32 mmol/L 23-31 H 6850054389) AGAP (test code = 2-16 5935015930) BUN (test code = 14 mg/dL 7-23 5226283663) GLUCOSE (test code = 89 mg/dL 70-110 9003074404) CREATININE (test code = 0.67 mg/dL 0.6-1.25 8564931266) CALCIUM (test code = 8.2 mg/dL 8.6-10.6 L 4816515052) eGFR Calculation mL/min/1.73m2 (Non-) (test code = 6850073480) eGFR Calculation mL/min/1.73m2 () (test code = 7266829384) GILBERTO (test code = GILBERTO) Association of [...] tests). Lab Interpretation Abnormal (test code = 90563-6) [facility]00 Test Item Value Reference Range Interpretation Comments MAGNESIUM (test code = 3045607991) 1.8 mg/dL 1.7-2.4 Lab Interpretation (test code = Normal 62587-0) [facility] 08:13:00 Test Item Value Reference Range Interpretation Comments PHOSPHORUS (test code = 6357286691) 5.2 mg/dL 2.5-5 H Lab Interpretation (test code = Abnormal 96473-0) [facility] [id number] 08:05:00 Test Item Value Reference Range Interpretation [...] (test code = 57.9 fL 38.5-51.6 H 83005-5) RDW-CV (test code = 18.7 % 12.1-15.4 H 788-0) PLT (test code = See_Comment [Automated 777-3) message] The sy stem which generated this result transmitted reference range : 150 - 328 10*3/ ?L. The reference r meredith was not used to interpret this result as normal/abnormal . MPV (test code = 10.3 fL 9.8-13 04847-4) NRBC/100 WBC (test See_Comment [Automat ed code = 0006363642) message] The system which generated this result transmitted reference range : 0.0 - 10.0 /100 WBCs. The refer ence range was not u sed to interpret th is result as normal/abnormal . NRBC x10^3 (test code <0.01 See_Comment [Auto mated = 1043499079) message] The s ystem which generated this result transmitted reference range : 10*3/?L. The reference range was not used to interpret this result as normal/abnormal . GRAN MAT (NEUT) % 56.4 % (test code = 770-8) IMM GRAN % (test code 0.50 % = 2373616112) LYMPH % (test code = 26.2 % 736-9) MONO % (test code = 12.2 % 5905-5) EOS % (test code = 4.2 % 713-8) BASO % (test code = 0.5 % 706-2) GRAN MAT x10^3(ANC) 2.31 10*3/uL 1.99-6.95 (test code = 0423514057) IMM GRAN x10^3 (test <0.03 0-0.06 code = 3936896086) LYMPH x10^3 (test code 1.07 10*3/uL 1.09-3.23 L = 731-0) MONO x10^3 (test code 0.50 10*3/uL 0.36-1.02 = 742-7) EOS x10^3 (test code = 0.17 10*3/uL 0.06-0.53 711-2) BASO x10^3 (test code <0.03 0.01-0.09 = 704-7) Lab Interpretation Abnormal (test code = 71611-3) [facility] (NA, K, CL, CO2, GLUCOSE, BUN, CREATININE, CA)2020-05-30 09:04:00 Test Item Value Reference Range Interpretation Comments NA (test code = 138 mmol/L 135-145 0009160173) K (test code = 4.4 mmol/L 3.5-5 1150929196) CL (test code = 99 mmol/L 98-108 5451313232) CO2 TOTAL (test code = 33 mmol/L 23-31 H 2288399404) AGAP (test code = 2-16 3419651905) BUN (test code = 18 mg/dL 7-23 1802722408) GLUCOSE (test code = 86 mg/dL 70-110 0043062430) CREATININE (test code = 0.61 mg/dL 0.6-1.25 7074923069) CALCIUM (test code = 8.1 mg/dL 8.6-10.6 L 2606279513) eGFR Calculation mL/min/1.73m2 (Non-) (test code = 4532126859) eGFR Calculation mL/min/1.73m2 () (test code = 4018734581) GILBERTO (test code = GILBERTO) Association of [...] tests). Lab Interpretation Abnormal (test code = 23260-5) [facility] 09:04:00 Test Item Value Reference Range Interpretation Comments MAGNESIUM (test code = 6432562841) 2.0 mg/dL 1.7-2.4 Lab Interpretation (test code = Normal 15720-1) [facility]07 09:04:00 Test Item Value Reference Range Interpretation Comments PHOSPHORUS (test code = 0308690118) 4.6 mg/dL 2.5-5 Lab Interpretation (test code = Normal 83834-0) [facility] (NA, K, CL, CO2, GLUCOSE, BUN, CREATININE, CA)2020-05-29 07:31:00 Test Item Value Reference Range Interpretation Comments NA (test code = 135 mmol/L 135-145 4317353907) K (test code = 4.0 mmol/L 3.5-5 3083731996) CL (test code = 100 mmol/L 98-108 6615556510) CO2 TOTAL (test code = 32 mmol/L 23-31 H 9142972297) AGAP (test code = 2-16 7751815811) BUN (test code = 19 mg/dL 7-23 9293419884) GLUCOSE (test code = 86 mg/dL 70-110 5834620960) CREATININE (test code = 0.68 mg/dL 0.6-1.25 2471316911) CALCIUM (test code = 8.0 mg/dL 8.6-10.6 L 8595574494) eGFR Calculation mL/min/1.73m2 (Non-) (test code = 2015669404) eGFR Calculation mL/min/1.73m2 () (test code = 2523512591) GILBERTO (test code = GILBERTO) Association of [...] tests). Lab Interpretation Abnormal (test code = 72805-8) [facility]06 07:31:00 Test Item Value Reference Range Interpretation Comments MAGNESIUM (test code = 7982925322) 1.6 mg/dL 1.7-2.4 L Lab Interpretation (test code = Abnormal 60785-0) [facility]2020-10-06 07:31:00 Test Item Value Reference Range Interpretation Comments PHOSPHORUS (test code = 6579111049) 3.5 mg/dL 2.5-5 Lab Interpretation (test code = Normal 58541-7) [facility](AEROBIC/ANAEROBIC) 2020-05-28 12:35:00 Test Item Value Reference Range Interpretation Comments Aspirate or Abscess No aerobic/anaerobic Culture (test code = organisms isolated 07967-4) Gram stain (test code Occasional (Rare) = 664-3) Mononuclear cells [facility] (NA, K, CL, CO2, GLUCOSE, BUN, CREATININE, CA)2020-05-28 09:36:00 Test Item Value Reference Range Interpretation Comments NA (test code = 136 mmol/L 135-145 4665651920) K (test code = 4.3 mmol/L 3.5-5 6870262468) CL (test code = 102 mmol/L 98-108 6942103930) CO2 TOTAL (test code = 31 mmol/L 23-31 8075652586) AGAP (test code = 2-16 4821506323) BUN (test code = 25 mg/dL 7-23 H 1971815202) GLUCOSE (test code = 87 mg/dL 70-110 4245674346) CREATININE (test code = 0.65 mg/dL 0.6-1.25 6477474151) CALCIUM (test code = 8.2 mg/dL 8.6-10.6 L 1963933987) eGFR Calculation mL/min/1.73m2 (Non-) (test code = 8425687105) eGFR Calculation mL/min/1.73m2 () (test code = 7003641386) GILBERTO (test code = GILBERTO) Association of [...] tests). Lab Interpretation Abnormal (test code = 27844-2) [facility]2020-10-05 09:36:00 Test Item Value Reference Range Interpretation Comments MAGNESIUM (test code = 9233891851) 1.6 mg/dL 1.7-2.4 L Lab Interpretation (test code = Abnormal 75422-1) [facility]2020-10-05 09:36:00 Test Item Value Reference Range Interpretation Comments PHOSPHORUS (test code = 9373420897) 2.6 mg/dL 2.5-5 Lab Interpretation (test code = Normal 81289-0) [facility] (NA, K, CL, CO2, GLUCOSE, BUN, CREATININE, CA)2020-05-27 10:13:00 Test Item Value Reference Range Interpretation Comments NA (test code = 135 mmol/L 135-145 6703585954) K (test code = 3.9 mmol/L 3.5-5 5978153469) CL (test code = 103 mmol/L 98-108 1641461375) CO2 TOTAL (test code = 28 mmol/L 23-31 4363493064) AGAP (test code = 2-16 7999074026) BUN (test code = 20 mg/dL 7-23 3943619095) GLUCOSE (test code = 95 mg/dL 70-110 1247503146) CREATININE (test code = 0.67 mg/dL 0.6-1.25 2839401943) CALCIUM (test code = 8.2 mg/dL 8.6-10.6 L 5733356406) eGFR Calculation mL/min/1.73m2 (Non-) (test code = 8374250875) eGFR Calculation mL/min/1.73m2 () (test code = 1690302983) GILBERTO (test code = GILBERTO) Association of [...] tests). Lab Interpretation Abnormal (test code = 76097-0) [facility]2020-10-04 10:13:00 Test Item Value Reference Range Interpretation Comments MAGNESIUM (test code = 4019183140) 1.5 mg/dL 1.7-2.4 L Lab Interpretation (test code = Abnormal 12416-8) [facility]2020-10-04 10:13:00 Test Item Value Reference Range Interpretation Comments PHOSPHORUS (test code = 5557501779) 3.4 mg/dL 2.5-5 Lab Interpretation (test code = Normal 36966-7) [facility] CHANGE OF ABSCESS [id number] 17:06:27 Successful removal of the left upper quadrant drainage catheter. Replacement of the right upper quadrant catheter into the most superiorsegment of the collection with a new 10 Ghanaian pigtail catheter.PLAN: This tube should be flushed with 10 of saline twice a day. ?We willcontinue to monitor the output of the catheter while the patient isin-house. If the patient is discharged prior to catheter removal, follow-upwith VIR is recommended in 7-10 ?days. This can be arranged by [id number]. Preliminary Report Dictated by Resident: Johnny Tilley [...] from those actually performing theprocedure. Please see [facility] for sedation time. RADIATION DOSE: 33.0 mGy. TECHNIQUE: The risks, benefits and alternativeswere discussed and informed consentwas obtained. Prior to beginning the procedure, [place] Protocol was usedto confirm the patient's identity [...] of the pigtailcatheters within the respective collections. [facility], Radiant Results Inft User - [...] from those actually performing theprocedure. Please see [facility] for sedation time.RADIATION DOSE: 33.0 mGy.TECHNIQUE: The risks, benefits andalternatives were discussed and informed consentwas obtained. Prior to beginning the procedure, [place] Protocol was usedto confirm the patient's identity [...] of the collection with a new 10 Ghanaian pigtail catheter.PLAN: This tube should be flushed with 10 of saline twice a day. We willcontinue to monitor the output of the catheter while the patient isin-house. If the patient is discharged prior to catheter removal, follow-upwith VIR is recommended in 7-10 days. This can be arranged by [id number].Preliminary Report Dictated by Resident: Johnny Benitez, as teaching physician, was present during the entire procedure and/orduring the botello components.Nixon Damon MD., have reviewed this study and agree with theabove report.[facility] ABSCESS BULLA OR CYST BY [id number] 17:06:16 Successful ultrasound-guided aspiration of intrahepatic small [...] Tilley;Contributing VIR Fellow: Dr. Vance Stafford. SEDATION: No moderate sedation was utilized for this procedure. TECHNIQUE: The risks, benefits and alternativeswere discussed and informed consentwas obtained. Prior to beginning the procedure, [place] Protocol was usedto confirm the patient's identity and planned procedure. Maximum sterilebarriers including cap, mask, hand hygiene, sterile gloves, sterile gown,large sterile drape and cutaneous antisepsis were used. The skin overlying the right mid abdomen was sterilely prepped, draped andinfiltrated with 1percent lidocaine. The targeted infrahepatic small collection was then accessed with [id number] micropuncture needle using imaging guidance which includedultrasound. The fluid collection was carefully aspirated. A steriledressing was applied. A sample of the fluid was sent for culture ESTIMATED BLOOD LOSS: Minimal. DISCHARGED TO: Recovery and then to inpatient unit. CONDITION: Stable. FINDINGS: Ultrasound imaging of the infrahepatic area demonstrated a very smallanechoic fluid collection. 1 mL yellowviscous-appearing fluid wasaspirated. [facility], Radiant Results Inft User - 05/26/2020 12:07 PM CDTEXAMINATION: IMAGE GUIDED PERCUTANEOUS INFRAHEPATIC FLUID COLLECTIONASPIRATIONHISTORY: 50 years-old; Male;peritoneal abscess.ATTENDEES: Attending radiologist: Nixon Perez; Resident: Dr. oJhnny Tilley;Contributing VIR Fellow: Dr. Vance Stafford.SEDATION: No moderate sedation was utilized for this procedure.TECHNIQUE: The risks, benefits and alternatives were discussed and informed consentwas obtained. Prior to beginning the procedure, [place] Protocol was usedto confirm the patient's identity and planned procedure. Maximum sterilebarriers including cap, mask, hand hygiene, sterile gloves, sterile gown,large sterile drape and cutaneous antisepsis were used. The skin overlying the right mid abdomen was sterilely prepped, draped andinfiltrated with 1 percent lidocaine. The targeted infrahepatic small collection was then accessed with f70-[id number] micropuncture needle using imaging guidance which includ [...] reviewed this study and agree with theabove report.[facility] (NA, K, CL, CO2, GLUCOSE, BUN, CREATININE, CA) 2020-05-26 10:13:00 Test Item Value Reference Range Interpretation Comments NA (test code = 135 mmol/L 135-145 4860707208) K (test code = 4.4 mmol/L 3.5-5 8089497888) CL (test code = 107 mmol/L 98-108 4020388460) CO2 TOTAL (test code = 23 mmol/L 23-31 8661608662) AGAP (test code = 2-16 3259212251) BUN (test code = 18 mg/dL 7-23 6396779519) GLUCOSE (test code = 101 mg/dL 70-110 8721755437) CREATININE (test code = 0.61 mg/dL 0.6-1.25 2118304947) CALCIUM (test code = 8.1 mg/dL 8.6-10.6 L 5995042568) eGFR Calculation mL/min/1.73m2 (Non-) (test code = 3853623995) eGFR Calculation mL/min/1.73m2 () (test code = 9331600925) GILBERTO (test code = GILBERTO) Association of [...] tests). Lab Interpretation Abnormal (test code = 23707-2) [facility]2020-10-03 10:13:00 Test Item Value Reference Range Interpretation Comments MAGNESIUM (test code = 7203536644) 1.7 mg/dL 1.7-2.4 Lab Interpretation (test code = Normal 85269-3) [facility]2020-10-03 10:13:00 Test Item Value Reference Range Interpretation Comments PHOSPHORUS (test code = 4221459797) 3.4 mg/dL 2.5-5 Lab Interpretation (test code = Normal 63415-3) [facility] [id number] 23:20:33 Positioning dictated draining the right upper [...] upper quadrant. Nopneumoperitoneum.Preliminary Report Dictated by Resident: Elena Johansen, Abhijit Smith MD., have reviewed this study and agree with theabove report.[facility] METABOLIC PANEL (NA, K, CL, CO2, GLUCOSE, BUN, CREATININE, CA)2020-05-25 22:49:00 Test Item Value Reference Range Interpretation Comments NA (test code = 136 mmol/L 135-145 1901645798) K (test code = 4.5 mmol/L 3.5-5 8898253838) CL (test code = 105 mmol/L 98-108 9552293719) CO2 TOTAL (test code = 22 mmol/L 23-31 L 1226567077) AGAP (test code = 2-16 4507290458) BUN (test code = 24 mg/dL 7-23 H 9563954879) GLUCOSE (test code = 101 mg/dL 70-110 0297257614) CREATININE (test code = 0.74 mg/dL 0.6-1.25 7282661482) CALCIUM (test code = 8.6 mg/dL 8.6-10.6 8979446767) eGFR Calculation mL/min/1.73m2 (Non-) (test code = 8476051538) eGFR Calculation mL/min/1.73m2 () (test code = 5092202537) GILBERTO (test code = GILBERTO) Association of [...] tests). Lab Interpretation Abnormal (test code = 84674-3) [facility]2020-10-02 22:11:00 Test Item Value Reference Range Interpretation Comments MAGNESIUM (test code = 2024275823) 2.0 mg/dL 1.7-2.4 Lab Interpretation (test code = Normal 51948-8) [facility]2020-10-02 22:11:00 Test Item Value Reference Range Interpretation Comments PHOSPHORUS (test code = 4598587657) 3.1 mg/dL 2.5-5 Lab Interpretation (test code = Normal 18561-9) [facility] [id number] 21:51:00 Test Item Value Reference Range Interpretation Comments WBC (test code = See_Comment [Automated 8064-2) message] The sy stem which generated this result transmitted reference range : 4.20 - 10.70 10*3/?L. The reference range was not used to interpret this result as normal/abnormal . RBC (test code = See_Comment [Automated 737-8) message] The sy stem which generated this [...] (test code = 53.1 fL 38.5-51.6 H 76395-9) RDW-CV (test code = 17.9 % 12.1-15.4 H 788-0) PLT (test code = See_Comment [Automated 777-3) message] The sy stem which generated this result transmitted reference range : 150 - 328 10*3/ ?L. The reference r meredith was not used to interpret this result as normal/abnormal . MPV (test code = 9.1 fL 9.8-13 L 10983-6) NRBC/100 WBC (test See_Comment [Automat ed code = 3284339669) message] The system which generated this result transmitted reference range : 0.0 - 10.0 /100 WBCs. The refer ence range was not u sed to interpret th is result as normal/abnormal . NRBC x10^3 (test code <0.01 See_Comment [Auto mated = 6468273762) message] The s ystem which generated this result transmitted reference range : 10*3/?L. The reference range was not used to interpret this result as normal/abnormal . GRAN MAT (NEUT) % 73.4 % (test code = 770-8) IMM GRAN % (test code 0.50 % = 6727808820) LYMPH % (test code = 17.9 % 736-9) MONO % (test code = 5.2 % 5905-5) EOS % (test code = 2.5 % 713-8) BASO % (test code = 0.5 % 706-2) GRAN MAT x10^3(ANC) 4.05 10*3/uL 1.99-6.95 (test code = 1013005985) IMM GRAN x10^3 (test 0.03 10*3/uL 0-0.06 code = 4925309187) LYMPH x10^3 (test code 0.99 10*3/uL 1.09-3.23 L = 731-0) MONO x10^3 (test code 0.29 10*3/uL 0.36-1.02 L = 742-7) EOS x10^3 (test code = 0.14 10*3/uL 0.06-0.53 711-2) BASO x10^3 (test code 0.03 10*3/uL 0.01-0.09 = 704-7) Lab Interpretation Abnormal (test code = 71830-9) [facility] METABOLIC PANEL (NA, K, CL, CO2, GLUCOSE, BUN, CREATININE, CA)2020-05-25 09:24:00 Test Item Value Reference Range Interpretation Comments NA (test code = 135 mmol/L 135-145 6926370212) K (test code = 5.3 mmol/L 3.5-5 H Slight 1874874420) hemolysis CL (test code = 104 mmol/L 98-108 8732783574) CO2 TOTAL (test code 24 mmol/L 23-31 = 1388608808) AGAP (test code = 2-16 1551662340) BUN (test code = 22 mg/dL 7-23 Slight 7935248485) hemolysis GLUCOSE (test code = 96 mg/dL 70-110 6597630715) CREATININE (test code 0.73 mg/dL 0.6-1.25 = 3231332291) CALCIUM (test code = 8.2 mg/dL 8.6-10.6 L 5981298027) eGFR Calculation mL/min/1.73m2 (Non-) (test code = 4163883433) eGFR Calculation mL/min/1.73m2 () (test code = 7965930209) GILBERTO (test code = GILBERTO) Association of [...] tests). Lab Interpretation Abnormal (test code = 33380-6) [facility] 09:24:00 Test Item Value Reference Range Interpretation Comments MAGNESIUM (test code = 0090764647) 2.3 mg/dL 1.7-2.4 Lab Interpretation (test code = Normal 13121-9) [facility]-02 09:24:00 Test Item Value Reference Range Interpretation Comments PHOSPHORUS (test code = 8154269731) 3.4 mg/dL 2.5-5 Lab Interpretation (test code = Normal 12340-8) [facility] (NA, K, CL, CO2, GLUCOSE, BUN, CREATININE, CA)2020-05-24 21:00:00 Test Item Value Reference Range Interpretation Comments NA (test code = 135 mmol/L 135-145 2934203691) K (test code = 4.3 mmol/L 3.5-5 6201525706) CL (test code = 102 mmol/L 98-108 1584898038) CO2 TOTAL (test code = 25 mmol/L 23-31 9856048653) AGAP (test code = 2-16 0273488215) BUN (test code = 20 mg/dL 7-23 1992161920) GLUCOSE (test code = 102 mg/dL 70-110 0712574873) CREATININE (test code 0.97 mg/dL 0.6-1.25 = 6665240053) CALCIUM (test code = 9.0 mg/dL 8.6-10.6 6638848875) eGFR Calculation mL/min/1.73m2 (Non-) (test code = 1375186029) eGFR Calculation mL/min/1.73m2 () (test code = 5283376968) GILBERTO (test code = GILBERTO) Association of [...] or urine or abnormalities in imaging tests). [facility] 21:00:00 Test Item Value Reference Range Interpretation Comments MAGNESIUM (test code = 5227033824) 1.5 mg/dL 1.7-2.4 L Lab Interpretation (test code = Abnormal 08315-9) [facility] 20:58:00 Test Item Value Reference Range Interpretation Comments PHOSPHORUS (test code = 8795302553) 3.3 mg/dL 2.5-5 Lab Interpretation (test code = Normal 40225-5) [facility] with [id number] 11:31:00 Test Item Value Reference Range Interpretation [...] (test code = 51.9 fL 38.5-51.6 H 71688-0) RDW-CV (test code = 17.6 % 12.1-15.4 H 788-0) PLT (test code = See_Comment H [Automated 777-3) message] The sy stem which generated this result transmitted reference range : 150 - 328 10*3/ ?L. The reference r meredith was not used to interpret this result as normal/abnormal . MPV (test code = 9.0 fL 9.8-13 L 21642-1) NRBC/100 WBC (test See_Comment [Automat ed code = 1304672311) message] The system which generated this result transmitted reference range : 0.0 - 10.0 /100 WBCs. The refer ence range was not u sed to interpret th is result as normal/abnormal . NRBC x10^3 (test code <0.01 See_Comment [Auto mated = 7631109787) message] The s ystem which generated this result transmitted reference range : 10*3/?L. The reference range was not used to interpret this result as normal/abnormal . GRAN MAT (NEUT) % 66.0 % (test code = 770-8) IMM GRAN % (test code 0.20 % = 9618180191) LYMPH % (test code = 20.3 % 736-9) MONO % (test code = 10.4 % 5905-5) EOS % (test code = 2.6 % 713-8) BASO % (test code = 0.5 % 706-2) GRAN MAT x10^3(ANC) 4.33 10*3/uL 1.99-6.95 (test code = 4443547879) IMM GRAN x10^3 (test <0.03 0-0.06 code = 0914789543) LYMPH x10^3 (test code 1.33 10*3/uL 1.09-3.23 = 731-0) MONO x10^3 (test code 0.68 10*3/uL 0.36-1.02 = 742-7) EOS x10^3 (test code = 0.17 10*3/uL 0.06-0.53 711-2) BASO x10^3 (test code 0.03 10*3/uL 0.01-0.09 = 704-7) Lab Interpretation Abnormal (test code = 14549-4) [facility] W [id number] 17:39:05 Since 05/19/2020 slight increase in size [...] tebral body since priorexamination dated back to 2016 suggestive of benign lesion. [facility], Radiant Results Inft User - 05/23/2020 12:40 PM CDTCT ABDOMEN PELVIS W CONTRAST 05/23/2020 9:50 AMHISTORY: fluidcollections, eval for IR drainage. 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 Concern for displacement of the RLQ drainCOMPARISON: CT abdomen pelvis 05/23/2020DOSE: 369.5 mGy- cmTECHNIQUE: Axial images of the abdomen and pelvis were acquired afteradm inistration of 100 ml Omnipaque 350. Coronal and sagittalreconstructions were also created.FINDINGS:LOWER CHEST: Small left pleural effusion and adjacent lung atelectasis.HEPATOBILIARY: No hepatomegaly. No biliary ductal dilatation.. No biliaryductal dilatation. No hyperdense stone. Pericholecystic stranding likelysecondary to adjacent subphrenic collection.SPLEEN: No splenomegaly.PANCREAS: No ductaldilation, or solid masses.ADRENAL GLANDS: No adrenal nodules.KIDNEYS: No hydronephrosis or stone. Nosolid mass.GI TRACT/PERITONEUM: Postsurgical changes of total colectomy [...] removal of the drain in the right lower quadrant collection alongthe right paracolic gutter. The collection currently measures 2.5 x 0.9 x2. 9 cm collection, previously 1.9 x 1.4 x 1.4 cm.Marked edema and stranding of bilateral paracolic gutters. Unchanged traceascites.LYMPH NODES: No lymphadenopathy is seen.PELVIS/BLADDER: Unremarkable.VESSELS: No aortic aneurysm or critical stenosis. .BONES AND SOFT TISSUES: Stable within L4 vertebral body since priorexamination dated back to 2016 suggestive of benign lesion.IMPRESSIONSince 05/19/2020 slight increase in size of collection in the rightparacolic gutter, interval post removal of the right lower quadrant drain. The left diaphragmatic and right perihepatic are unchanged with drains insitu as above.[facility] (NA, K, CL, CO2, Glucose, BUN, Creatinine, CA)2020-05-23 10:25:00 Test Item Value Reference Range Interpretation Comments NA (test code = 135 mmol/L 135-145 8535684476) K (test code = 3.7 mmol/L 3.5-5 1789591973) CL (test code = 105 mmol/L 98-108 8858007550) CO2 TOTAL (test code = 24 mmol/L 23-31 4009870917) AGAP (test code = 2-16 0643181435) BUN (test code = 19 mg/dL 7-23 8944803150) GLUCOSE (test code = 117 mg/dL 70-110 H 2374747117) CREATININE (test code = 0.74 mg/dL 0.6-1.25 0497558841) CALCIUM (test code = 7.3 mg/dL 8.6-10.6 L 4423045736) eGFR Calculation mL/min/1.73m2 (Non-) (test code = 9934371312) eGFR Calculation mL/min/1.73m2 () (test code = 7709572608) GILBERTO (test code = GILBERTO) Association of [...] tests). Lab Interpretation Abnormal (test code = 61845-3) [facility] BranchCORONAVIRUS COVID-19 [id number] 07:40:00 Test Item Value Reference Range Interpretation Comments SARS-CoV-2 Rapid ID NOW Not Detected Not Detected (test code = 60033-2) GILBERTO (test code = GILBERTO) ID NOW COVID-19 Assay is an isothermal nucleic acid amplification test intended for the qualitative detection of nucleic acid from SARS-CoV-2 viral RNA in nasopharyngeal (PRODUCT SAFETY OFFICER) specimens. It is used under Emergency Use [...] indicated. Lab Interpretation Normal (test code = 23165-7) [facility]2020-[facility] 22:41:00 Test Item Value Reference Range Interpretation Comments APPEARANCE (test code = Hazy Clear A 6313221163) COLOR (test code = Yellow Yellow 5667983553) PH (test code = 4.8-8.0 3267563282) SP GRAVITY (test code = 1.003-1.030 3286258741) GLU U QUAL (test code = Normal Normal 5040343405) BLOOD (test code = Negative Negative 6077327298) KETONES (test code = Negative Negative 9203211674) PROTEIN (test code = 30 mg/dL Negative A 2887-8) UROBILIN (test code = Normal Normal 0634095787) BILIRUBIN (test code = Negative Negative 3906899381) NITRITE (test code = Negative Negative 1839875152) LEUK ROGER (test code = Negative Negative 7540670455) RBC/HPF (test code = See_Comment H [Autom ated message] 6239405135) The system Sticky generated this result transmitted ref erence range: 0 - 3 HP F. The reference range was not used to int erpret this result as normal/abnormal . WBC/HPF (test code = See_Comment H [Autom ated message] 8232562496) The system Sticky generated this result transmitted ref erence range: 0 - 5 HP F. The reference range was not used to int erpret this result as normal/abnormal . BACTERIA (test code = Negative Negative 8493936888) MUCOUS (test code = Moderate Negative LPF A 3048691102) SQ EPITH (test code = See_Comment [Auto mated message] 3114642907) The system Sticky generated this result transmitted ref erence range: <=2 HPF. The reference range was not used to int erpret this result as normal/abnormal . CA OXALATE (test code = See_Comment H [Au tomated message] 7539287540) The system Sticky generated this result transmitted ref erence range: <=1 HPF. The reference range was not used to int erpret this result as normal/abnormal . HYAL CAST (test code = See_Comment H [Aut omated message] 2499376216) The system Sticky generated this result transmitted ref erence range: <=2 LPF. The reference range was not used to int erpret this result as normal/abnormal . Lab Interpretation (test Abnormal code = 41815-3) [facility] (NA, K, CL, CO2, GLUCOSE, BUN, CREATININE, CA)2020-05-22 21:46:00 Test Item Value Reference Range Interpretation Comments NA (test code = 134 mmol/L 135-145 L 0432724582) K (test code = 5.0 mmol/L 3.5-5 2461092588) CL (test code = 103 mmol/L 98-108 6654845452) CO2 TOTAL (test code = 25 mmol/L 23-31 5362149593) AGAP (test code = 2-16 7049516447) BUN (test code = 24 mg/dL 7-23 H 0117727068) GLUCOSE (test code = 102 mg/dL 70-110 0528680205) CREATININE (test code = 0.87 mg/dL 0.6-1.25 6924129663) CALCIUM (test code = 9.2 mg/dL 8.6-10.6 0208554925) eGFR Calculation mL/min/1.73m2 (Non-) (test code = 3826006059) eGFR Calculation mL/min/1.73m2 () (test code = 8093998355) GILBERTO (test code = GILBERTO) Association of [...] tests). Lab Interpretation Abnormal (test code = 57970-7) [facility] (ALB, T.PRO, BILI T, BU/BC, ALT, AST, ALK PHOS)2020-05-22 21:46:00 Test Item Value Reference Range Interpretation Comments TOTAL BILI (test code = 9402914079) 0.4 mg/dL 0.1-1.1 BILI UNCON (test code = 8023008651) 0.2 mg/dL 0.1-1.1 BILI CONJ (test code = 7583497610) 0.0 mg/dL 0-0.3 T PROTEIN (test code = 5282137838) 6.5 g/dL 6.3-8.2 ALBUMIN (test code = 3782102077) 3.6 g/dL 3.5-5 ALK PHOS (test code = 3656437909) 96 U/L 34-122 ALTv (test code = 1742-6) 22 U/L 5-50 AST(SGOT) (test code = 5783307757) 28 U/L 13-40 Lab Interpretation (test code = Normal 87994-5) [facility]oLipase Lbcdy2603-32-60 21:46:00 Test Item Value Reference Range Interpretation Comments LIPASE (test code = 8063925617) 95 U/L 0-220 Lab Interpretation (test code = Normal 34991-5) [facility]oaPTT2020-09-29 21:46:00 Test Item Value Reference Range Interpretation Comments APTT Patient (test code = See_Comment [ Automated message] 3173-2) The system BCR Environmental h generated this result transmitted ref erence range: 26 - 36 Seconds. The re ference range was not u sed to interpret this result as normal/abnor mal. Lab Interpretation (test Normal code = 40920-0) [facility]oProthrombin Time (PT) / [id number] 21:46:00 Test Item Value Reference Range Interpretation Comments PROTIME PATIENT (test See_Comment H [Auto mated message] code = 5964-2) The system Flinto generated this result transmitted ref erence range: 10.1 - 1 2.6 Seconds. The reference range was not used to int erpret this result as normal/abnormal . INR (test code = 6301-6) Nor mal INR <1.1; Warfarin Therap eutic range 2.0 to 3. 0 or 2.5 to 3.5, dep ending upon the indica tions. Lab Interpretation (test Abnormal code = 54283-4) [facility]oCBC with Ftrmzydqaqdn7863-53-17 21:41:00 Test Item Value Reference Range Interpretation Comments WBC (test code = See_Comment [Automated 5790-2) message] The sy stem which generated this result transmitted reference range : 4.20 - 10.70 10*3/?L. The reference range was not used to interpret this result as normal/abnormal . RBC (test code = See_Comment L [Automated 587-8) message] The sy stem which generated this [...] (test code = 53.0 fL 38.5-51.6 H 72333-9) RDW-CV (test code = 17.6 % 12.1-15.4 H 788-0) PLT (test code = See_Comment H [Automated 777-3) message] The sy stem which generated this result transmitted reference range : 150 - 328 10*3/ ?L. The reference r meredith was not used to interpret this result as normal/abnormal . MPV (test code = 9.1 fL 9.8-13 L 34939-0) NRBC/100 WBC (test See_Comment [Automat ed code = 7193664551) message] The system which generated this result transmitted reference range : 0.0 - 10.0 /100 WBCs. The refer ence range was not u sed to interpret th is result as normal/abnormal . NRBC x10^3 (test code <0.01 See_Comment [Auto mated = 9314640089) message] The s ystem which generated this result transmitted reference range : 10*3/?L. The reference range was not used to interpret this result as normal/abnormal . GRAN MAT (NEUT) % 77.4 % (test code = 770-8) IMM GRAN % (test code 0.50 % = 9527527671) LYMPH % (test code = 15.8 % 736-9) MONO % (test code = 4.9 % 5905-5) EOS % (test code = 0.8 % 713-8) BASO % (test code = 0.6 % 706-2) GRAN MAT x10^3(ANC) 5.04 10*3/uL 1.99-6.95 (test code = 5013992700) IMM GRAN x10^3 (test 0.03 10*3/uL 0-0.06 code = 9716650315) LYMPH x10^3 (test code 1.03 10*3/uL 1.09-3.23 L = 731-0) MONO x10^3 (test code 0.32 10*3/uL 0.36-1.02 L = 742-7) EOS x10^3 (test code = 0.05 10*3/uL 0.06-0.53 L 711-2) BASO x10^3 (test code 0.04 10*3/uL 0.01-0.09 = 704-7) Lab Interpretation Abnormal (test code = 78167-9) [facility] 1 [id number] 21:19:32CHEST ONE VIEW HISTORY: ?Weakness TECHNIQUE: ?AP [...] the left costophrenic angle suggests a leftpleural effusion.[facility] (ID NOW RAPID TESTING) 2020-05-20 10:09:00 Test Item Value Reference Range Interpretation Comments SARS-CoV-2 Rapid ID NOW Not Detected Not Detected (test code = 37832-6) GILBERTO (test code = GILBERTO) ID NOW COVID-19 Assay is an isothermal nucleic acid amplification test intended for the qualitative detection of nucleic acid from SARS-CoV-2 viral RNA in nasopharyngeal (PRODUCT SAFETY OFFICER) specimens. It is used under Emergency Use [...] indicated. Lab Interpretation Normal (test code = 36266-5) [facility]INALYSIS2020-09-27 10:07:00 Test Item Value Reference Range Interpretation Comments APPEARANCE (test code = Clear Clear 0782005883) COLOR (test code = Yellow Yellow 7786250927) PH (test code = 4.8-8.0 2973922234) SP GRAVITY (test code = 1.003-1.030 H 4695853453) GLU U QUAL (test code = Normal Normal 6878100546) BLOOD (test code = Negative Negative 7202628707) KETONES (test code = Negative Negative 4721504859) PROTEIN (test code = Negative Negative 2887-8) UROBILIN (test code = Normal Normal 0516473271) BILIRUBIN (test code = Negative Negative 0360187745) NITRITE (test code = Negative Negative 3961854000) LEUK ROGER (test code = Negative Negative 6176792890) RBC/HPF (test code = See_Comment [Autom ated message] 6840724271) The system Sticky generated this result transmitted ref erence range: 0 - 3 HP F. The reference range was not used to int erpret this result as normal/abnormal . WBC/HPF (test code = See_Comment [Autom ated message] 0484057251) The system Sticky generated this result transmitted ref erence range: 0 - 5 HP F. The reference range was not used to int erpret this result as normal/abnormal . BACTERIA (test code = Negative Negative 4521690163) MUCOUS (test code = Slight Negative LPF A 9967388237) SQ EPITH (test code = See_Comment [Auto mated message] 1150732454) The system Sticky generated this result transmitted ref erence range: <=2 HPF. The reference range was not used to int erpret this result as normal/abnormal . HYAL CAST (test code = See_Comment H [Aut omated message] 5947685361) The system Sticky generated this result transmitted ref erence range: <=2 LPF. The reference range was not used to int erpret this result as normal/abnormal . Lab Interpretation (test Abnormal code = 75248-2) [facility]oCT ABDOMEN PELVIS W [id number] 04:28:40Impression: 1. Multiple rim-enhancing fluid and gas [...] effusions, possiblyloculated on the left. RL: 2824AFC: [id number] End of Report Exam: CT Abdomen and Pelvis With Contrast, 05/19/2020 10:15 PM. Ordering Physician: JONAH RODRIGUEZ. History: Abdominal pain. Technique: CT abdomen and [...] no pelvic adenopathy. Osseous structures are unremarkable. [facility], Radiant Results Inft User - 05/19/2020 11:29 PM CDTExam: CT Abdomen and Pelvis With Contrast, 05/19/2020 10:15 PM.Ordering Physician: JONAH RODRIGUEZ.History: Abdominal pain.Technique: CT abdomen and pelvis was [...] pleural effusions, possiblyloculated on the left.RL: 2824AFC: [id number] of Report [facility] HospitalN[facility] [id number] 03:44:00 Test Item Value Reference Range Interpretation Comments TROPONIN I (test 0.001 ng/mL See_Comment [Automated code = 2073310331) message] The system which generated this result [...] ? Lab Interpretation Normal (test code = 10942-5) [facility]oCOM. METABOLIC PANEL (19452)2020-05-20 03:33:00 Test Item Value Reference Range Interpretation Comments NA (test code = 138 mmol/L 135-145 4478689985) K (test code = 5.3 mmol/L 3.5-5 H 3240050964) CL (test code = 100 mmol/L 98-108 8864482065) CO2 TOTAL (test code = 28 mmol/L 23-31 3415822743) AGAP (test code = 2-16 6028086915) BUN (test code = 27 mg/dL 7-23 H 4774973273) GLUCOSE (test code = 90 mg/dL 70-110 7948098831) CREATININE (test code = 1.25 mg/dL 0.6-1.25 9792729054) TOTAL BILI (test code = 0.2 mg/dL 0.1-1.6 1100270469) CALCIUM (test code = 9.9 mg/dL 8.6-10.6 8150848877) T PROTEIN (test code = 6.8 g/dL 6.3-8.2 2038916519) ALBUMIN (test code = 3.7 g/dL 3.5-5 4160024482) ALK PHOS (test code = 122 U/L 34-122 9067886859) ALTv (test code = 26 U/L 5-50 1742-6) AST(SGOT) (test code = 24 U/L 13-40 6802212151) eGFR Calculation mL/min/1.73m2 (Non-) (test code = 3544722979) eGFR Calculation mL/min/1.73m2 () (test code = 6061155284) GILBERTO (test code = GILBERTO) Association of [...] tests). Lab Interpretation Abnormal (test code = 31809-8) [facility]oLIPASE2020-09-27 03:33:00 Test Item Value Reference Range Interpretation Comments LIPASE (test code = 9296479945) 223 U/L 0-220 H Lab Interpretation (test code = Abnormal 10629-3) [facility]oMAGNESIUM2020-09-27 03:33:00 Test Item Value Reference Range Interpretation Comments MAGNESIUM (test code = 9897343182) 1.7 mg/dL 1.7-2.4 Lab Interpretation (test code = Normal 52948-0) [facility]oCB WITH [id number] 03:17:00 Test Item Value Reference Range Interpretation [...] RDW-SD (test code = 49.9 fL 38.5-51.6 32118-1) RDW-CV (test code = 17.2 % 12.1-15.4 H 788-0) PLT (test code = See_Comment H [Automated 777-3) message] The sy stem which generated this result transmitted reference range : 150 - 328 10*3/ ?L. The reference r meredith was not used to interpret this result as normal/abnormal . MPV (test code = 9.3 fL 9.8-13 L 89338-1) NRBC/100 WBC (test See_Comment [Automat ed code = 2870225221) message] The system which generated this result transmitted reference range : 0.0 - 10.0 /100 WBCs. The refer ence range was not u sed to interpret th is result as normal/abnormal . NRBC x10^3 (test code <0.01 See_Comment [Auto mated = 5058593685) message] The s ystem which generated this result transmitted reference range : 10*3/?L. The reference range was not used to interpret this result as normal/abnormal . GRAN MAT (NEUT) % 78.5 % (test code = 770-8) IMM GRAN % (test code 0.50 % = 8058227556) LYMPH % (test code = 11.6 % 736-9) MONO % (test code = 8.4 % 5905-5) EOS % (test code = 0.6 % 713-8) BASO % (test code = 0.4 % 706-2) GRAN MAT x10^3(ANC) 6.16 10*3/uL 1.99-6.95 (test code = 7479590708) IMM GRAN x10^3 (test 0.04 10*3/uL 0-0.06 code = 1395606112) LYMPH x10^3 (test code 0.91 10*3/uL 1.09-3.23 L = 731-0) MONO x10^3 (test code 0.66 10*3/uL 0.36-1.02 = 742-7) EOS x10^3 (test code = 0.05 10*3/uL 0.06-0.53 L 711-2) BASO x10^3 (test code 0.03 10*3/uL 0.01-0.09 = 704-7) Lab Interpretation Abnormal (test code = 06049-0) [facility]ODY FLUID CULTURE(AEROBIC/ANAEROBIC) 2020-05-10 15:19:00 Test Item Value Reference Range Interpretation Comments BODY FLUID CULT 2+ Clostridioides (test code = (Clostridium) difficile 611-4) Gram stain (test Few PMNs or Mononuclear code = 664-3) cells observed [facility] Metabolic Panel (NA, K, CL, CO2, GLUCOSE, BUN, CREATININE, CA)2020-05-10 10:27:00 Test Item Value Reference Range Interpretation Comments NA (test code = 132 mmol/L 135-145 L 5098953366) K (test code = 4.0 mmol/L 3.5-5 6202524026) CL (test code = 97 mmol/L 98-108 L 4283934690) CO2 TOTAL (test code = 28 mmol/L 23-31 0778497894) AGAP (test code = 2-16 9650281167) BUN (test code = 12 mg/dL 7-23 6478320784) GLUCOSE (test code = 128 mg/dL 70-110 H 2609673405) CREATININE (test code = 0.63 mg/dL 0.6-1.25 6513650485) CALCIUM (test code = 8.7 mg/dL 8.6-10.6 9001629534) eGFR Calculation mL/min/1.73m2 (Non-) (test code = 6969339606) eGFR Calculation mL/min/1.73m2 () (test code = 2333069385) GILBERTO (test code = GILBERTO) Association of [...] tests). Lab Interpretation Abnormal (test code = 87925-6) [facility]oMagnesium Kqoid8475-56-71 10:27:00 Test Item Value Reference Range Interpretation Comments MAGNESIUM (test code = 3100739365) 1.7 mg/dL 1.7-2.4 Lab Interpretation (test code = Normal 92351-1) [facility]oPhosphorus Majqz2790-28-17 10:27:00 Test Item Value Reference Range Interpretation Comments PHOSPHORUS (test code = 9375350493) 3.4 mg/dL 2.5-5 Lab Interpretation (test code = Normal 42822-8) [facility]oCBC with Nkluucfbumbm1874-07-49 10:03:00 Test Item Value Reference Range Interpretation [...] RDW-SD (test code = 47.3 fL 38.5-51.6 55829-9) RDW-CV (test code = 15.7 % 12.1-15.4 H 788-0) PLT (test code = See_Comment H [Automated 777-3) message] The sy stem which generated this result transmitted reference range : 150 - 328 10*3/ ?L. The reference r meredith was not used to interpret this result as normal/abnormal . MPV (test code = 8.9 fL 9.8-13 L 53421-7) NRBC/100 WBC (test See_Comment [Automat ed code = 6314481797) message] The system which generated this result transmitted reference range : 0.0 - 10.0 /100 WBCs. The refer ence range was not u sed to interpret th is result as normal/abnormal . NRBC x10^3 (test code <0.01 See_Comment [Auto mated = 5990880578) message] The s ystem which generated this result transmitted reference range : 10*3/?L. The reference range was not used to interpret this result as normal/abnormal . GRAN MAT (NEUT) % 80.0 % (test code = 770-8) IMM GRAN % (test code 0.50 % = 7204410295) LYMPH % (test code = 11.8 % 736-9) MONO % (test code = 6.6 % 5905-5) EOS % (test code = 0.8 % 713-8) BASO % (test code = 0.3 % 706-2) GRAN MAT x10^3(ANC) 6.98 10*3/uL 1.99-6.95 H (test code = 3725772812) IMM GRAN x10^3 (test 0.04 10*3/uL 0-0.06 code = 2131342155) LYMPH x10^3 (test code 1.03 10*3/uL 1.09-3.23 L = 731-0) MONO x10^3 (test code 0.58 10*3/uL 0.36-1.02 = 742-7) EOS x10^3 (test code = 0.07 10*3/uL 0.06-0.53 711-2) BASO x10^3 (test code 0.03 10*3/uL 0.01-0.09 = 704-7) Lab Interpretation Abnormal (test code = 10819-7) [facility] (NA, K, CL, CO2, GLUCOSE, BUN, CREATININE, CA)2020-05-09 11:07:00 Test Item Value Reference Range Interpretation Comments NA (test code = 133 mmol/L 135-145 L 4442091339) K (test code = 4.4 mmol/L 3.5-5 2819698704) CL (test code = 100 mmol/L 98-108 3201748911) CO2 TOTAL (test code = 25 mmol/L 23-31 8727946925) AGAP (test code = 2-16 4046261849) BUN (test code = 14 mg/dL 7-23 5117816155) GLUCOSE (test code = 93 mg/dL 70-110 8954559650) CREATININE (test code = 0.66 mg/dL 0.6-1.25 9383859850) CALCIUM (test code = 8.3 mg/dL 8.6-10.6 L 4233061951) eGFR Calculation mL/min/1.73m2 (Non-) (test code = 2222688848) eGFR Calculation mL/min/1.73m2 () (test code = 7113308211) GILBERTO (test code = GILBERTO) Association of [...] tests). Lab Interpretation Abnormal (test code = 40604-3) [facility]oMagnesium Hffkh3522-96-48 11:07:00 Test Item Value Reference Range Interpretation Comments MAGNESIUM (test code = 7783540780) 1.8 mg/dL 1.7-2.4 Lab Interpretation (test code = Normal 12676-9) [facility]oPhosphorus Kcbdp4812-71-29 11:07:00 Test Item Value Reference Range Interpretation Comments PHOSPHORUS (test code = 4243673906) 3.2 mg/dL 2.5-5 Lab Interpretation (test code = Normal 22071-9) [facility]oCBC with Cmzaxvkzjujw7201-30-00 10:42:00 Test Item Value Reference Range Interpretation [...] RDW-SD (test code = 45.9 fL 38.5-51.6 48731-0) RDW-CV (test code = 15.4 % 12.1-15.4 788-0) PLT (test code = See_Comment H [Automated 777-3) message] The sy stem which generated this result transmitted reference range : 150 - 328 10*3/ ?L. The reference r meredith was not used to interpret this result as normal/abnormal . MPV (test code = 8.9 fL 9.8-13 L 46862-0) NRBC/100 WBC (test See_Comment [Automat ed code = 4904954033) message] The system which generated this result transmitted reference range : 0.0 - 10.0 /100 WBCs. The refer ence range was not u sed to interpret th is result as normal/abnormal . NRBC x10^3 (test code <0.01 See_Comment [Auto mated = 2640944625) message] The s ystem which generated this result transmitted reference range : 10*3/?L. The reference range was not used to interpret this result as normal/abnormal . GRAN MAT (NEUT) % 77.7 % (test code = 770-8) IMM GRAN % (test code 0.50 % = 8035583601) LYMPH % (test code = 11.8 % 736-9) MONO % (test code = 8.4 % 5905-5) EOS % (test code = 1.4 % 713-8) BASO % (test code = 0.2 % 706-2) GRAN MAT x10^3(ANC) 6.48 10*3/uL 1.99-6.95 (test code = 2183485221) IMM GRAN x10^3 (test 0.04 10*3/uL 0-0.06 code = 3594952326) LYMPH x10^3 (test code 0.98 10*3/uL 1.09-3.23 L = 731-0) MONO x10^3 (test code 0.70 10*3/uL 0.36-1.02 = 742-7) EOS x10^3 (test code = 0.12 10*3/uL 0.06-0.53 711-2) BASO x10^3 (test code <0.03 0.01-0.09 = 704-7) Lab Interpretation Abnormal (test code = 10475-1) [facility] Metabolic Panel (NA, K, CL, CO2, GLUCOSE, BUN, CREATININE, CA)2020-05-08 12:18:00 Test Item Value Reference Range Interpretation Comments NA (test code = 136 mmol/L 135-145 9934276041) K (test code = 4.1 mmol/L 3.5-5 5493565001) CL (test code = 102 mmol/L 98-108 7724096012) CO2 TOTAL (test code = 26 mmol/L 23-31 9294078173) AGAP (test code = 2-16 3346223807) BUN (test code = 18 mg/dL 7-23 5824013601) GLUCOSE (test code = 99 mg/dL 70-110 8119845887) CREATININE (test code = 0.63 mg/dL 0.6-1.25 5118573913) CALCIUM (test code = 8.4 mg/dL 8.6-10.6 L 9015630783) eGFR Calculation mL/min/1.73m2 (Non-) (test code = 5906556571) eGFR Calculation mL/min/1.73m2 () (test code = 0979695587) GILBERTO (test code = GILBERTO) Association of [...] tests). Lab Interpretation Abnormal (test code = 37843-9) [facility]oMagn[facility] Nuqfw0463-76-38 12:18:00 Test Item Value Reference Range Interpretation Comments MAGNESIUM (test code = 8761301805) 1.8 mg/dL 1.7-2.4 Lab Interpretation (test code = Normal 81446-2) [facility]oPhosphorus Floxf0930-15-30 12:18:00 Test Item Value Reference Range Interpretation Comments PHOSPHORUS (test code = 9082623135) 3.2 mg/dL 2.5-5 Lab Interpretation (test code = Normal 64141-4) [facility] with Gsvzdyosgdjl9170-90-89 11:50:00 Test Item Value Reference Range Interpretation Comments WBC (test code = See_Comment [Automated 9390-2) message] The sy stem which generated this result transmitted reference range : 4.20 - 10.70 10*3/?L. The reference range was not used to interpret this result as normal/abnormal . RBC (test code = See_Comment L [Automated 539-8) message] The sy stem which generated this [...] RDW-SD (test code = 46.9 fL 38.5-51.6 56918-0) RDW-CV (test code = 15.2 % 12.1-15.4 788-0) PLT (test code = See_Comment H [Automated 777-3) message] The sy stem which generated this result transmitted reference range : 150 - 328 10*3/ ?L. The reference r meredith was not used to interpret this result as normal/abnormal . MPV (test code = 9.0 fL 9.8-13 L 04513-3) NRBC/100 WBC (test See_Comment [Automat ed code = 6967216136) message] The system which generated this result transmitted reference range : 0.0 - 10.0 /100 WBCs. The refer ence range was not u sed to interpret th is result as normal/abnormal . NRBC x10^3 (test code <0.01 See_Comment [Auto mated = 7191203188) message] The s ystem which generated this result transmitted reference range : 10*3/?L. The reference range was not used to interpret this result as normal/abnormal . GRAN MAT (NEUT) % 76.3 % (test code = 770-8) IMM GRAN % (test code 0.70 % = 8996205816) LYMPH % (test code = 13.3 % 736-9) MONO % (test code = 8.4 % 5905-5) EOS % (test code = 1.1 % 713-8) BASO % (test code = 0.2 % 706-2) GRAN MAT x10^3(ANC) 6.93 10*3/uL 1.99-6.95 (test code = 1810739458) IMM GRAN x10^3 (test 0.06 10*3/uL 0-0.06 code = 0182844447) LYMPH x10^3 (test code 1.21 10*3/uL 1.09-3.23 = 731-0) MONO x10^3 (test code 0.76 10*3/uL 0.36-1.02 = 742-7) EOS x10^3 (test code = 0.10 10*3/uL 0.06-0.53 711-2) BASO x10^3 (test code <0.03 0.01-0.09 = 704-7) Lab Interpretation Abnormal (test code = 95258-5) [facility] PERITONEAL OR [id number] 13:09:04 Technically successful drainage catheter placement in [...] from those actually performing theprocedure. Please see [facility] for total sedation time. TECHNIQUE: The risks, [...] of the tract was performed. A 14 Ghanaian locking pigtail michale inagecatheter was placed in the collection and samples were sent for laboratoryanalysis. The left upper quadrant collection was identified under ultrasound and CTguidance. A 17-gauge coaxial needle wasadvanced into the collection. AnAmplatz wire was advanced into the collection over the needle and serialdilatation of the tract was performed. A 12 Ghanaian locking pigtail drainagecatheter was placed within the collection and samples were sent forlaboratory analysis. The right lower quadrant collectionwas identified under ultrasound and CTguidance. A 17-gauge coaxial needle was advanced into the colle ction.Serial dilatation was performed over the Amplatz wire. A 14 Ghanaian lockingpigtail drainage catheter was placed within the collection. Proper positioning was confirmed with postprocedural CT imaging of theabdomen and pelvis. The catheters were sutured to the skin. ESTIMATED BLOOD LOSS: <3cc. CONDITION: Stable. FINDINGS: Initial CT images demonstrate multiple abscesses in the left upper, rightupper, and right lower quadrants. [facility], Radiant Results Inft User - 05/07/2020 8:10 [...] from those actually performing theprocedure. Please see EPIC for total sedation time. TECHNIQUE: The risks, benefits and alternatives were discussed and informedconsent was obtained. Prior to beginning the procedure, [place] Protocolwas performed to confirm the patient's identity [...] of the tract was performed. A 14 Ghanaian lockingpigtail drainagecatheter was placed in the collection and samples were sent for laboratoryanalysis.The left upper quadrant collection was identified under ultrasound and CTguidance. A 17-gauge coaxial needle was advanced into the collection. AnAmplatz wire was advanced into the collection over the needle and serialdilatation of the tract was performed. A 12 Ghanaian locking pigtail drainagecatheter wasplaced within the collection and samples were sent forlaboratory analysis.The right lower quadrant collection was identified under ultrasound and CTguidance. A 17-gauge coaxial needle was advanced intothe collection.Serial dilatation was performed over the Amplatz wire. A 14 Ghanaian lockingpigtail drainage catheter was placed within the [...] right lower quadrant collections.Preliminary ReportDictated by Resident: Sukhjinder Gamble, Nixon Prince MD., have reviewed this study and agree withtheabove report.I, as teaching physician, was present during the entire procedure and/orduring the botello components.[facility] Metabolic Panel (NA, K, CL, CO2, GLUCOSE, BUN, CREATININE, CA) 2020-05-07 11:49:00 Test Item Value Reference Range Interpretation Comments NA (test code = 132 mmol/L 135-145 L 4752164467) K (test code = 4.0 mmol/L 3.5-5 5213615445) CL (test code = 101 mmol/L 98-108 7458152477) CO2 TOTAL (test code = 23 mmol/L 23-31 2457459867) AGAP (test code = 2-16 9615129624) BUN (test code = 21 mg/dL 7-23 0540659062) GLUCOSE (test code = 98 mg/dL 70-110 2219934513) CREATININE (test code = 0.65 mg/dL 0.6-1.25 3753732418) CALCIUM (test code = 8.4 mg/dL 8.6-10.6 L 8068842317) eGFR Calculation mL/min/1.73m2 (Non-) (test code = 3236578271) eGFR Calculation mL/min/1.73m2 () (test code = 6742122756) GILBERTO (test code = GILBERTO) Association of [...] tests). Lab Interpretation Abnormal (test code = 37882-8) [facility] [id number] 11:49:00 Test Item Value Reference Range Interpretation Comments MAGNESIUM (test code = 7781557986) 1.5 mg/dL 1.7-2.4 L Lab Interpretation (test code = Abnormal 57123-5) [facility] [id number] 11:49:00 Test Item Value Reference Range Interpretation Comments PHOSPHORUS (test code = 3989324194) 2.7 mg/dL 2.5-5 Lab Interpretation (test code = Normal 66294-0) [facility] with Srpqikdducgf5534-78-21 11:31:00 Test Item Value Reference Range Interpretation Comments WBC (test code = See_Comment [Automated 9190-2) message] The sy stem which generated this result transmitted reference range : 4.20 - 10.70 10*3/?L. The reference range was not used to interpret this result as normal/abnormal . RBC (test code = See_Comment L [Automated 053-8) message] The sy stem which generated this [...] RDW-SD (test code = 47.2 fL 38.5-51.6 64433-7) RDW-CV (test code = 15.3 % 12.1-15.4 788-0) PLT (test code = See_Comment H [Automated 777-3) message] The sy stem which generated this result transmitted reference range : 150 - 328 10*3/ ?L. The reference r meredith was not used to interpret this result as normal/abnormal . MPV (test code = 9.4 fL 9.8-13 L 63472-2) NRBC/100 WBC (test See_Comment [Automat ed code = 2964491337) message] The system which generated this result transmitted reference range : 0.0 - 10.0 /100 WBCs. The refer ence range was not u sed to interpret th is result as normal/abnormal . NRBC x10^3 (test code <0.01 See_Comment [Auto mated = 7930909068) message] The s ystem which generated this result transmitted reference range : 10*3/?L. The reference range was not used to interpret this result as normal/abnormal . GRAN MAT (NEUT) % 81.1 % (test code = 770-8) IMM GRAN % (test code 0.80 % = 2118593436) LYMPH % (test code = 9.5 % 736-9) MONO % (test code = 7.8 % 5905-5) EOS % (test code = 0.6 % 713-8) BASO % (test code = 0.2 % 706-2) GRAN MAT x10^3(ANC) 8.26 10*3/uL 1.99-6.95 H (test code = 1261229734) IMM GRAN x10^3 (test 0.08 10*3/uL 0-0.06 H code = 9055079076) LYMPH x10^3 (test code 0.97 10*3/uL 1.09-3.23 L = 731-0) MONO x10^3 (test code 0.79 10*3/uL 0.36-1.02 = 742-7) EOS x10^3 (test code = 0.06 10*3/uL 0.06-0.53 711-2) BASO x10^3 (test code <0.03 0.01-0.09 = 704-7) Lab Interpretation Abnormal (test code = 84924-6) [facility] Metabolic Panel (NA, K, CL, CO2, GLUCOSE, BUN, CREATININE, CA)2020-05-06 15:02:00 Test Item Value Reference Range Interpretation Comments NA (test code = 134 mmol/L 135-145 L 6455071205) K (test code = 4.3 mmol/L 3.5-5 4252656259) CL (test code = 105 mmol/L 98-108 1025569763) CO2 TOTAL (test code = 23 mmol/L 23-31 3187427568) AGAP (test code = 2-16 5153263113) BUN (test code = 18 mg/dL 7-23 2973124024) GLUCOSE (test code = 96 mg/dL 70-110 3293654956) CREATININE (test code = 0.67 mg/dL 0.6-1.25 4107484245) CALCIUM (test code = 8.5 mg/dL 8.6-10.6 L 0777723472) eGFR Calculation mL/min/1.73m2 (Non-) (test code = 3254841784) eGFR Calculation mL/min/1.73m2 () (test code = 7013864651) GILBERTO (test code = GILBERTO) Association of [...] tests). Lab Interpretation Abnormal (test code = 67145-5) [facility] Krnhm9819-26-81 15:02:00 Test Item Value Reference Range Interpretation Comments MAGNESIUM (test code = 7463751271) 1.8 mg/dL 1.7-2.4 Lab Interpretation (test code = Normal 91882-2) [facility] Twveu9689-96-07 15:02:00 Test Item Value Reference Range Interpretation Comments PHOSPHORUS (test code = 6371142687) 3.2 mg/dL 2.5-5 Lab Interpretation (test code = Normal 27315-7) [facility] with Myomicbpmupp9730-48-69 10:41:00 Test Item Value Reference Range Interpretation [...] RDW-SD (test code = 47.0 fL 38.5-51.6 38578-5) RDW-CV (test code = 15.2 % 12.1-15.4 788-0) PLT (test code = See_Comment H [Automated 777-3) message] The sy stem which generated this result transmitted reference range : 150 - 328 10*3/ ?L. The reference r meredith was not used to interpret this result as normal/abnormal . MPV (test code = 9.1 fL 9.8-13 L 72073-0) NRBC/100 WBC (test See_Comment [Automat ed code = 5647303464) message] The system which generated this result transmitted reference range : 0.0 - 10.0 /100 WBCs. The refer ence range was not u sed to interpret th is result as normal/abnormal . NRBC x10^3 (test code <0.01 See_Comment [Auto mated = 1561576177) message] The s ystem which generated this result transmitted reference range : 10*3/?L. The reference range was not used to interpret this result as normal/abnormal . GRAN MAT (NEUT) % 77.3 % (test code = 770-8) IMM GRAN % (test code 0.60 % = 0669802021) LYMPH % (test code = 11.6 % 736-9) MONO % (test code = 9.5 % 5905-5) EOS % (test code = 0.8 % 713-8) BASO % (test code = 0.2 % 706-2) GRAN MAT x10^3(ANC) 6.69 10*3/uL 1.99-6.95 (test code = 3357537598) IMM GRAN x10^3 (test 0.05 10*3/uL 0-0.06 code = 4352651725) LYMPH x10^3 (test code 1.00 10*3/uL 1.09-3.23 L = 731-0) MONO x10^3 (test code 0.82 10*3/uL 0.36-1.02 = 742-7) EOS x10^3 (test code = 0.07 10*3/uL 0.06-0.53 711-2) BASO x10^3 (test code <0.03 0.01-0.09 = 704-7) Lab Interpretation Abnormal (test code = 12039-9) [facility] Packed RBC (in units), 1 Units 2020-05-05 15:59:33 Test Item Value Reference Range Interpretation Comments Cross Match Result Compatible (test code = 4409) ISBT Blood Type Code (test code = 164066) Unit Blood Type (test O Pos code = 4410) Unit Number (test [id number] code = 4411) Blood Expiration Date & Time (test code = 038754) Status Information Issued (test code = 4412) Product Red Blood Cells Identification (test code = 4413) Product Code (test [id number] Performed at [facility] code = 4414) Laboratory Services - [facility] Blood [address] [facility] s [address]Jnes Free: [phone] A No. [id number] [facility]oType and Screen - ONCE Ccbfrjd5033-33-91 11:34:29 Test Item Value Reference Range Interpretation Comments ABO & RH (test code O POSITIVE Performe d at [facility] = 20) Laboratory Serv [facility] Blood [facility]3 [address] [facility] s [address]Aqyu Free: [phone] A No. [id number] IAT (test code = Negative Performed a t [facility] 1185) [facility] Blood [facility]3 [address] [facility] s [address]Gdho Free: [phone] A No. [id number] [facility]oPREALBUMIN2020-09-12 10:19:00 Test Item Value Reference Range Interpretation Comments PALB (test code = 88138-1) 8.0 mg/dL 18-45 L Lab Interpretation (test code = Abnormal 92920-0) [facility] Met[facility] (NA, K, CL, CO2, GLUCOSE, BUN, CREATININE, CA)2020-05-05 10:12:00 Test Item Value Reference Range Interpretation Comments NA (test code = 135 mmol/L 135-145 6204069901) K (test code = 4.1 mmol/L 3.5-5 1245674777) CL (test code = 106 mmol/L 98-108 7097723035) CO2 TOTAL (test code = 22 mmol/L 23-31 L 2934847463) AGAP (test code = 2-16 4708669031) BUN (test code = 25 mg/dL 7-23 H 5402315257) GLUCOSE (test code = 91 mg/dL 70-110 6958080776) CREATININE (test code = 0.68 mg/dL 0.6-1.25 9939408721) CALCIUM (test code = 7.4 mg/dL 8.6-10.6 L 1227814338) eGFR Calculation mL/min/1.73m2 (Non-) (test code = 8358411658) eGFR Calculation mL/min/1.73m2 () (test code = 6811734484) GILBERTO (test code = GILBERTO) Association of [...] tests). Lab Interpretation Abnormal (test code = 08418-9) [facility] Vhekd5565-33-72 10:12:00 Test Item Value Reference Range Interpretation Comments MAGNESIUM (test code = 8509642155) 1.8 mg/dL 1.7-2.4 Lab Interpretation (test code = Normal 94716-5) [facility] Dywhp4648-07-78 10:12:00 Test Item Value Reference Range Interpretation Comments PHOSPHORUS (test code = 3971776685) 3.1 mg/dL 2.5-5 Lab Interpretation (test code = Normal 05490-6) [facility] with Tqbmdweloafz9325-49-76 09:18:00 Test Item Value Reference Range Interpretation [...] RDW-SD (test code = 48.4 fL 38.5-51.6 71698-7) RDW-CV (test code = 15.7 % 12.1-15.4 H 788-0) PLT (test code = See_Comment H [Automated 777-3) message] The sy stem which generated this result transmitted reference range : 150 - 328 10*3/ ?L. The reference r meredith was not used to interpret this result as normal/abnormal . MPV (test code = 9.1 fL 9.8-13 L 74142-0) NRBC/100 WBC (test See_Comment [Automat ed code = 5186399305) message] The system which generated this result transmitted reference range : 0.0 - 10.0 /100 WBCs. The refer ence range was not u sed to interpret th is result as normal/abnormal . NRBC x10^3 (test code <0.01 See_Comment [Auto mated = 2347695516) message] The s ystem which generated this result transmitted reference range : 10*3/?L. The reference range was not used to interpret this result as normal/abnormal . GRAN MAT (NEUT) % 79.0 % (test code = 770-8) IMM GRAN % (test code 0.70 % = 7256701807) LYMPH % (test code = 10.6 % 736-9) MONO % (test code = 8.9 % 5905-5) EOS % (test code = 0.5 % 713-8) BASO % (test code = 0.3 % 706-2) GRAN MAT x10^3(ANC) 7.81 10*3/uL 1.99-6.95 H (test code = 1680311521) IMM GRAN x10^3 (test 0.07 10*3/uL 0-0.06 H code = 3501156126) LYMPH x10^3 (test code 1.05 10*3/uL 1.09-3.23 L = 731-0) MONO x10^3 (test code 0.88 10*3/uL 0.36-1.02 = 742-7) EOS x10^3 (test code = 0.05 10*3/uL 0.06-0.53 L 711-2) BASO x10^3 (test code 0.03 10*3/uL 0.01-0.09 = 704-7) Lab Interpretation Abnormal (test code = 02263-9) [facility]2020-[facility] 06:03:00 Test Item Value Reference Range Interpretation Comments APPEARANCE (test code = Hazy Clear A 0090936684) COLOR (test code = Yellow Yellow 1542014331) PH (test code = 4.8-8.0 3765750396) SP GRAVITY (test code = 1.003-1.030 H 8060246893) GLU U QUAL (test code = Normal Normal 4959234952) BLOOD (test code = Negative Negative 9059326835) KETONES (test code = Negative Negative 4856707766) PROTEIN (test code = Negative Negative 2887-8) UROBILIN (test code = Normal Normal 9181027297) BILIRUBIN (test code = Negative Negative 1623117892) NITRITE (test code = Negative Negative 0662279674) LEUK ROGER (test code = Negative Negative 1535942068) RBC/HPF (test code = See_Comment H [Autom ated message] 3512946732) The system Sticky generated this result transmitted ref erence range: 0 - 3 HP F. The reference range was not used to int erpret this result as normal/abnormal . WBC/HPF (test code = See_Comment [Autom ated message] 3962386727) The system Sticky generated this result transmitted ref erence range: 0 - 5 HP F. The reference range was not used to int erpret this result as normal/abnormal . BACTERIA (test code = Few Negative A 8030487256) MUCOUS (test code = Slight Negative LPF A 7524597863) CA OXALATE (test code = See_Comment H [Au tomated message] 5872327738) The system Sticky generated this result transmitted ref erence range: <=1 HPF. The reference range was not used to int erpret this result as normal/abnormal . Lab Interpretation (test Abnormal code = 28937-1) [facility] ABDOM[facility] PELVIS W BMCYEUDO8191-08-15 04:56:59 1. ?Interval removal of left subdiaphragmatic, [...] 4.1 cm.4. 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 Preliminary Report Dictated by Resident: Ankush Lott ?MD Valdo., have reviewed this study and agree with [...] lower quadrant ileostomy.Preliminary Report Dictated by Resident: Ashwin Guerra, Ankush Lyle MD., have reviewed this study and agree with the abovereport.[facility]OVID[facility] (ID NOW RAPID TESTING)2020-05-05 03:40:00 Test Item Value Reference Range Interpretation Comments SARS-CoV-2 Rapid ID NOW Not Detected Not Detected (test code = 89471-7) GILBERTO (test code = GILBERTO) ID NOW COVID-19 Assay is an isothermal nucleic acid amplification test intended for the qualitative detection of nucleic acid from SARS-CoV-2 viral RNA in nasopharyngeal (PRODUCT SAFETY OFFICER) specimens. It is used under Emergency Use [...] indicated. Lab Interpretation Normal (test code = 10027-0) [facility]. METABOLIC PANEL (32549)2020-05-05 03:02:00 Test Item Value Reference Range Interpretation Comments NA (test code = 134 mmol/L 135-145 L 4628117789) K (test code = 4.7 mmol/L 3.5-5 0252387226) CL (test code = 99 mmol/L 98-108 1926184697) CO2 TOTAL (test code = 24 mmol/L 23-31 6388201608) AGAP (test code = 2-16 7471701514) BUN (test code = 37 mg/dL 7-23 H 1088510535) GLUCOSE (test code = 105 mg/dL 70-110 2684906442) CREATININE (test code = 0.94 mg/dL 0.6-1.25 7048329347) TOTAL BILI (test code = 0.5 mg/dL 0.1-1.0 5298606886) CALCIUM (test code = 8.8 mg/dL 8.6-10.6 7564814453) T PROTEIN (test code = 6.2 g/dL 6.3-8.2 L 3089463778) ALBUMIN (test code = 3.0 g/dL 3.5-5 L 8677059008) ALK PHOS (test code = 150 U/L 34-122 H 3089032525) ALTv (test code = 28 U/L 5-50 1742-6) AST(SGOT) (test code = 23 U/L 13-40 3899148570) eGFR Calculation mL/min/1.73m2 (Non-) (test code = 8124782782) eGFR Calculation mL/min/1.73m2 () (test code = 9534786940) GILBERTO (test code = GILBERTO) Association of [...] tests). Lab Interpretation Abnormal (test code = 04113-0) [facility]2020-[facility] 03:02:00 Test Item Value Reference Range Interpretation Comments LIPASE (test code = 3534877475) 323 U/L 0-220 H Lab Interpretation (test code = Abnormal 05911-4) [facility] WITH [id number] 02:43:00 Test Item Value Reference Range Interpretation [...] RDW-SD (test code = 45.7 fL 38.5-51.6 29076-7) RDW-CV (test code = 15.4 % 12.1-15.4 788-0) PLT (test code = See_Comment H [Automated 777-3) message] The system which generated this result transmit dain reference range : 150 - 328 10*3/ ?L. The reference range was not u sed to interpret th is result as normal/abnormal . MPV (test code = 8.9 fL 9.8-13 L 42613-6) NRBC/100 WBC (test See_Comment [Automat ed code = 2717070988) message] The system which generated this result transmit dain reference range : 0.0 - 10.0 /100 WBCs. The reference range was not used to interpret this result as normal/abnormal . NRBC x10^3 (test code <0.01 See_Comment [Auto mated = 9327572738) message] The system which generated this result transmit dain reference range : 10*3/?L. The reference range was not used to interpret this result as normal/abnormal . GRAN MAT (NEUT) % 82.6 % (test code = 770-8) IMM GRAN % (test code 0.60 % = 6911744616) LYMPH % (test code = 8.1 % 736-9) MONO % (test code = 8.1 % 5905-5) EOS % (test code = 0.4 % 713-8) BASO % (test code = 0.2 % 706-2) GRAN MAT x10^3(ANC) 11.18 10*3/uL 1.99-6.95 H (test code = 2947711331) IMM GRAN x10^3 (test 0.08 10*3/uL 0-0.06 H code = 4253551602) LYMPH x10^3 (test code 1.10 10*3/uL 1.09-3.23 = 731-0) MONO x10^3 (test code 1.09 10*3/uL 0.36-1.02 H = 742-7) EOS x10^3 (test code = 0.05 10*3/uL 0.06-0.53 L 711-2) BASO x10^3 (test code 0.03 10*3/uL 0.01-0.09 = 704-7) Lab Interpretation Abnormal (test code = 22603-2) [facility] METABOLIC PANEL (NA, K, CL, CO2, GLUCOSE, BUN, CREATININE, CA)2020-05-01 12:25:00 Test Item Value Reference Range Interpretation Comments NA (test code = 131 mmol/L 135-145 L 1529780772) K (test code = 4.7 mmol/L 3.5-5 3427701166) CL (test code = 97 mmol/L 98-108 L 1167179543) CO2 TOTAL (test code = 25 mmol/L 23-31 5096296133) AGAP (test code = 2-16 2458134728) BUN (test code = 30 mg/dL 7-23 H 4247952000) GLUCOSE (test code = 111 mg/dL 70-110 H 1052860716) CREATININE (test code = 0.69 mg/dL 0.6-1.25 3655410042) CALCIUM (test code = 9.3 mg/dL 8.6-10.6 7025879797) eGFR Calculation mL/min/1.73m2 (Non-) (test code = 2363346910) eGFR Calculation mL/min/1.73m2 () (test code = 5594109843) GILBERTO (test code = GILBERTO) Association of [...] tests). Lab Interpretation Abnormal (test code = 71298-6) [facility]2020-09-08 12:07:00 Test Item Value Reference Range Interpretation Comments MAGNESIUM (test code = 9057982369) 2.3 mg/dL 1.7-2.4 Lab Interpretation (test code = Normal 38118-4) [facility]2020-09-08 12:07:00 Test Item Value Reference Range Interpretation Comments PHOSPHORUS (test code = 8001347428) 4.6 mg/dL 2.5-5 Lab Interpretation (test code = Normal 79485-3) [facility] WITH [id number] 11:44:00 Test Item Value Reference Range Interpretation Comments WBC (test code = See_Comment H [Automated 1790-2) message] The system which generated this result [...] RDW-SD (test code = 44.9 fL 38.5-51.6 08135-6) RDW-CV (test code = 14.8 % 12.1-15.4 788-0) PLT (test code = See_Comment H [Automated 777-3) message] The system which generated this result transmit dain reference range : 150 - 328 10*3/ ?L. The reference range was not u sed to interpret th is result as normal/abnormal . MPV (test code = 9.1 fL 9.8-13 L 52323-2) NRBC/100 WBC (test See_Comment [Automat ed code = 1351553056) message] The system which generated this result transmit dain reference range : 0.0 - 10.0 /100 WBCs. The reference range was not used to interpret this result as normal/abnormal . NRBC x10^3 (test code <0.01 See_Comment [Auto mated = 4070123210) message] The system which generated this result transmit dain reference range : 10*3/?L. The reference range was not used to interpret this result as normal/abnormal . GRAN MAT (NEUT) % 81.4 % (test code = 770-8) IMM GRAN % (test code 0.70 % = 0253505484) LYMPH % (test code = 8.7 % 736-9) MONO % (test code = 8.5 % 5905-5) EOS % (test code = 0.3 % 713-8) BASO % (test code = 0.4 % 706-2) GRAN MAT x10^3(ANC) 12.01 10*3/uL 1.99-6.95 H (test code = 1730396177) IMM GRAN x10^3 (test 0.10 10*3/uL 0-0.06 H code = 5772988787) LYMPH x10^3 (test code 1.28 10*3/uL 1.09-3.23 = 731-0) MONO x10^3 (test code 1.25 10*3/uL 0.36-1.02 H = 742-7) EOS x10^3 (test code = 0.04 10*3/uL 0.06-0.53 L 711-2) BASO x10^3 (test code 0.06 10*3/uL 0.01-0.09 = 704-7) Lab Interpretation Abnormal (test code = 35173-5) [facility] METABOLIC PANEL (NA, K, CL, CO2, GLUCOSE, BUN, CREATININE, CA)2020-04-29 12:08:00 Test Item Value Reference Range Interpretation Comments NA (test code = 130 mmol/L 135-145 L 7773889271) K (test code = 5.0 mmol/L 3.5-5 0136899757) CL (test code = 94 mmol/L 98-108 L 4954634346) CO2 TOTAL (test code = 27 mmol/L 23-31 4226251637) AGAP (test code = 2-16 9955675344) BUN (test code = 35 mg/dL 7-23 H 1704291340) GLUCOSE (test code = 116 mg/dL 70-110 H 1632003447) CREATININE (test code = 0.76 mg/dL 0.6-1.25 9034716938) CALCIUM (test code = 9.0 mg/dL 8.6-10.6 6262680398) eGFR Calculation mL/min/1.73m2 (Non-) (test code = 1586362489) eGFR Calculation mL/min/1.73m2 () (test code = 3311948376) GILBERTO (test code = GILBERTO) Association of [...] tests). Lab Interpretation Abnormal (test code = 60588-8) [facility]2020-[facility] 12:01:00 Test Item Value Reference Range Interpretation Comments MAGNESIUM (test code = 5053006227) 2.3 mg/dL 1.7-2.4 Lab Interpretation (test code = Normal 66328-1) [facility]2020-09-06 12:01:00 Test Item Value Reference Range Interpretation Comments PHOSPHORUS (test code = 6712232486) 4.5 mg/dL 2.5-5 Lab Interpretation (test code = Normal 31058-8) [facility] WITH [id number] 11:52:00 Test Item Value Reference Range Interpretation Comments WBC (test code = See_Comment H [Automated 7690-2) message] The system which generated this result [...] RDW-SD (test code = 44.4 fL 38.5-51.6 04541-1) RDW-CV (test code = 14.7 % 12.1-15.4 788-0) PLT (test code = See_Comment H [Automated 777-3) message] The system which generated this result transmit dain reference range : 150 - 328 10*3/ ?L. The reference range was not u sed to interpret th is result as normal/abnormal . MPV (test code = 9.1 fL 9.8-13 L 95539-2) NRBC/100 WBC (test See_Comment [Automat ed code = 8484546397) message] The system which generated this result transmit dain reference range : 0.0 - 10.0 /100 WBCs. The reference range was not used to interpret this result as normal/abnormal . NRBC x10^3 (test code <0.01 See_Comment [Auto mated = 6566904986) message] The system which generated this result transmit dain reference range : 10*3/?L. The reference range was not used to interpret this result as normal/abnormal . GRAN MAT (NEUT) % 82.5 % (test code = 770-8) IMM GRAN % (test code 1.30 % = 6045885060) LYMPH % (test code = 7.1 % 736-9) MONO % (test code = 8.5 % 5905-5) EOS % (test code = 0.3 % 713-8) BASO % (test code = 0.3 % 706-2) GRAN MAT x10^3(ANC) 14.27 10*3/uL 1.99-6.95 H (test code = 7700402430) IMM GRAN x10^3 (test 0.23 10*3/uL 0-0.06 H code = 3439611333) LYMPH x10^3 (test code 1.23 10*3/uL 1.09-3.23 = 731-0) MONO x10^3 (test code 1.47 10*3/uL 0.36-1.02 H = 742-7) EOS x10^3 (test code = 0.05 10*3/uL 0.06-0.53 L 711-2) BASO x10^3 (test code 0.06 10*3/uL 0.01-0.09 = 704-7) Lab Interpretation Abnormal (test code = 84966-8) [facility] METABOLIC PANEL (NA, K, CL, CO2, GLUCOSE, BUN, CREATININE, CA)2020-04-28 10:15:00 Test Item Value Reference Range Interpretation Comments NA (test code = 130 mmol/L 135-145 L 4825717660) K (test code = 5.3 mmol/L 3.5-5 H 2492271697) CL (test code = 91 mmol/L 98-108 L 8626479573) CO2 TOTAL (test code = 29 mmol/L 23-31 2028229868) AGAP (test code = 2-16 7036584561) BUN (test code = 32 mg/dL 7-23 H 7057831852) GLUCOSE (test code = 101 mg/dL 70-110 1114294021) CREATININE (test code = 0.74 mg/dL 0.6-1.25 5467365798) CALCIUM (test code = 9.5 mg/dL 8.6-10.6 5440560754) eGFR Calculation mL/min/1.73m2 (Non-) (test code = 1318490145) eGFR Calculation mL/min/1.73m2 () (test code = 9390395220) GILBERTO (test code = GILBERTO) Association of [...] tests). Lab Interpretation Abnormal (test code = 66269-2) [facility] Test Item Value Reference Range Interpretation Comments MAGNESIUM (test code = 9769737712) 2.3 mg/dL 1.7-2.4 Lab Interpretation (test code = Normal 16401-8) [facility] WITH [id number] 09:55:00 Test Item Value Reference Range Interpretation [...] RDW-SD (test code = 45.1 fL 38.5-51.6 03380-0) RDW-CV (test code = 14.7 % 12.1-15.4 788-0) PLT (test code = See_Comment H [Automated 777-3) message] The system which generated this result transmit dain reference range : 150 - 328 10*3/ ?L. The reference range was not u sed to interpret th is result as normal/abnormal . MPV (test code = 9.5 fL 9.8-13 L 02484-1) NRBC/100 WBC (test See_Comment [Automat ed code = 8522075140) message] The system which generated this result transmit dain reference range : 0.0 - 10.0 /100 WBCs. The reference range was not used to interpret this result as normal/abnormal . NRBC x10^3 (test code <0.01 See_Comment [Auto mated = 7274996470) message] The system which generated this result transmit dain reference range : 10*3/?L. The reference range was not used to interpret this result as normal/abnormal . GRAN MAT (NEUT) % 81.1 % (test code = 770-8) IMM GRAN % (test code 1.40 % = 2795462695) LYMPH % (test code = 8.6 % 736-9) MONO % (test code = 7.9 % 5905-5) EOS % (test code = 0.5 % 713-8) BASO % (test code = 0.5 % 706-2) GRAN MAT x10^3(ANC) 14.68 10*3/uL 1.99-6.95 H (test code = 4625005828) IMM GRAN x10^3 (test 0.25 10*3/uL 0-0.06 H code = 9543707031) LYMPH x10^3 (test code 1.55 10*3/uL 1.09-3.23 = 731-0) MONO x10^3 (test code 1.43 10*3/uL 0.36-1.02 H = 742-7) EOS x10^3 (test code = 0.09 10*3/uL 0.06-0.53 711-2) BASO x10^3 (test code 0.09 10*3/uL 0.01-0.09 = 704-7) Lab Interpretation Abnormal (test code = 44665-9) [facility] METABOLIC PANEL (NA, K, CL, CO2, GLUCOSE, BUN, CREATININE, CA)2020-04-27 10:20:00 Test Item Value Reference Range Interpretation Comments NA (test code = 130 mmol/L 135-145 L 5821405944) K (test code = 4.5 mmol/L 3.5-5 8261076939) CL (test code = 93 mmol/L 98-108 L 4785856944) CO2 TOTAL (test code = 28 mmol/L 23-31 8926054880) AGAP (test code = 2-16 9585517893) BUN (test code = 31 mg/dL 7-23 H 5172736208) GLUCOSE (test code = 102 mg/dL 70-110 8904668947) CREATININE (test code = 0.81 mg/dL 0.6-1.25 4882334621) CALCIUM (test code = 9.0 mg/dL 8.6-10.6 1064321762) eGFR Calculation mL/min/1.73m2 (Non-) (test code = 0101285689) eGFR Calculation mL/min/1.73m2 () (test code = 8486879859) GILBERTO (test code = GILBERTO) Association of [...] tests). Lab Interpretation Abnormal (test code = 06604-1) [facility] Test Item Value Reference Range Interpretation Comments MAGNESIUM (test code = 6782489428) 2.2 mg/dL 1.7-2.4 Lab Interpretation (test code = Normal 77486-9) [facility] WITH [id number] 09:49:00 Test Item Value Reference Range Interpretation [...] RDW-SD (test code = 45.2 fL 38.5-51.6 57680-6) RDW-CV (test code = 14.5 % 12.1-15.4 788-0) PLT (test code = See_Comment H [Automated 777-3) message] The system which generated this result transmit dain reference range : 150 - 328 10*3/ ?L. The reference range was not u sed to interpret th is result as normal/abnormal . MPV (test code = 9.0 fL 9.8-13 L 78354-7) NRBC/100 WBC (test See_Comment [Automat ed code = 5637939978) message] The system which generated this result transmit dain reference range : 0.0 - 10.0 /100 WBCs. The reference range was not used to interpret this result as normal/abnormal . NRBC x10^3 (test code <0.01 See_Comment [Auto mated = 5507351467) message] The system which generated this result transmit dain reference range : 10*3/?L. The reference range was not used to interpret this result as normal/abnormal . GRAN MAT (NEUT) % 80.9 % (test code = 770-8) IMM GRAN % (test code 1.30 % = 4955238047) LYMPH % (test code = 8.9 % 736-9) MONO % (test code = 7.7 % 5905-5) EOS % (test code = 0.6 % 713-8) BASO % (test code = 0.6 % 706-2) GRAN MAT x10^3(ANC) 13.18 10*3/uL 1.99-6.95 H (test code = 8183359045) IMM GRAN x10^3 (test 0.21 10*3/uL 0-0.06 H code = 9999201319) LYMPH x10^3 (test code 1.45 10*3/uL 1.09-3.23 = 731-0) MONO x10^3 (test code 1.26 10*3/uL 0.36-1.02 H = 742-7) EOS x10^3 (test code = 0.09 10*3/uL 0.06-0.53 711-2) BASO x10^3 (test code 0.10 10*3/uL 0.01-0.09 H = 704-7) Lab Interpretation Abnormal (test code = 69643-7) [facility] METABOLIC PANEL (NA, K, CL, CO2, GLUCOSE, BUN, CREATININE, CA)2020-04-26 11:29:00 Test Item Value Reference Range Interpretation Comments NA (test code = 133 mmol/L 135-145 L 0722875969) K (test code = 4.7 mmol/L 3.5-5 0248633423) CL (test code = 98 mmol/L 98-108 0366053775) CO2 TOTAL (test code = 25 mmol/L 23-31 2048757644) AGAP (test code = 2-16 1795516997) BUN (test code = 26 mg/dL 7-23 H 4164385975) GLUCOSE (test code = 97 mg/dL 70-110 6587719584) CREATININE (test code = 0.73 mg/dL 0.6-1.25 1898583684) CALCIUM (test code = 8.7 mg/dL 8.6-10.6 7370721945) eGFR Calculation mL/min/1.73m2 (Non-) (test code = 7120686817) eGFR Calculation mL/min/1.73m2 () (test code = 5681032970) GILBERTO (test code = GILBERTO) Association of [...] tests). Lab Interpretation Abnormal (test code = 17229-8) [facility] 11:[facility]:00 Test Item Value Reference Range Interpretation Comments MAGNESIUM (test code = 3575383890) 2.1 mg/dL 1.7-2.4 Lab Interpretation (test code = Normal 44545-1) [facility] WITH [id number] 10:27:00 Test Item Value Reference Range Interpretation Comments WBC (test code = See_Comment H [Automated 3490-2) message] The system which generated this result [...] RDW-SD (test code = 45.4 fL 38.5-51.6 04101-8) RDW-CV (test code = 14.5 % 12.1-15.4 788-0) PLT (test code = See_Comment H [Automated 777-3) message] The system which generated this result transmit dain reference range : 150 - 328 10*3/ ?L. The reference range was not u sed to interpret th is result as normal/abnormal . MPV (test code = 9.3 fL 9.8-13 L 16675-0) NRBC/100 WBC (test See_Comment [Automat ed code = 4898555397) message] The system which generated this result transmit dain reference range : 0.0 - 10.0 /100 WBCs. The reference range was not used to interpret this result as normal/abnormal . NRBC x10^3 (test code <0.01 See_Comment [Auto mated = 8988715253) message] The system which generated this result transmit dain reference range : 10*3/?L. The reference range was not used to interpret this result as normal/abnormal . GRAN MAT (NEUT) % 79.6 % (test code = 770-8) IMM GRAN % (test code 1.30 % = 1397849598) LYMPH % (test code = 8.6 % 736-9) MONO % (test code = 9.3 % 5905-5) EOS % (test code = 0.8 % 713-8) BASO % (test code = 0.4 % 706-2) GRAN MAT x10^3(ANC) 12.46 10*3/uL 1.99-6.95 H (test code = 9968963159) IMM GRAN x10^3 (test 0.21 10*3/uL 0-0.06 H code = 9247589680) LYMPH x10^3 (test code 1.34 10*3/uL 1.09-3.23 = 731-0) MONO x10^3 (test code 1.45 10*3/uL 0.36-1.02 H = 742-7) EOS x10^3 (test code = 0.13 10*3/uL 0.06-0.53 711-2) BASO x10^3 (test code 0.07 10*3/uL 0.01-0.09 = 704-7) Lab Interpretation Abnormal (test code = 02309-1) [facility] METABOLIC PANEL (NA, K, CL, CO2, GLUCOSE, BUN, CREATININE, CA)2020-04-25 10:03:00 Test Item Value Reference Range Interpretation Comments NA (test code = 133 mmol/L 135-145 L 1557809825) K (test code = 4.6 mmol/L 3.5-5 6135575980) CL (test code = 96 mmol/L 98-108 L 0810430127) CO2 TOTAL (test code = 27 mmol/L 23-31 4477910940) AGAP (test code = 2-16 1331857005) BUN (test code = 21 mg/dL 7-23 1026406757) GLUCOSE (test code = 108 mg/dL 70-110 1598561306) CREATININE (test code = 0.76 mg/dL 0.6-1.25 7311476308) CALCIUM (test code = 9.5 mg/dL 8.6-10.6 0740114966) eGFR Calculation mL/min/1.73m2 (Non-) (test code = 9499592737) eGFR Calculation mL/min/1.73m2 () (test code = 5935982768) GILBERTO (test code = GILBERTO) Association of [...] tests). Lab Interpretation Abnormal (test code = 44857-0) [facility]00 Test Item Value Reference Range Interpretation Comments MAGNESIUM (test code = 3302532332) 2.4 mg/dL 1.7-2.4 Lab Interpretation (test code = Normal 39975-3) [facility] WITH [id number] 09:48:00 Test Item Value Reference Range Interpretation Comments WBC (test code = See_Comment H [Automated 0190-2) message] The system which generated this result transmit dain reference range : 4.20 - 10.70 10*3/?L. The reference range was not used to interpret this result as normal/abnormal . RBC (test code = See_Comment L [Automated 479-8) message] The system which generated this result [...] RDW-SD (test code = 45.7 fL 38.5-51.6 82288-8) RDW-CV (test code = 14.3 % 12.1-15.4 788-0) PLT (test code = See_Comment HH [Automated 777-3) message] The system which generated this result transmit dain reference range : 150 - 328 10*3/ ?L. The reference range was not u sed to interpret th is result as normal/abnormal . MPV (test code = 9.1 fL 9.8-13 L 32973-6) NRBC/100 WBC (test See_Comment [Automat ed code = 2762235661) message] The system which generated this result transmit dain reference range : 0.0 - 10.0 /100 WBCs. The reference range was not used to interpret this result as normal/abnormal . NRBC x10^3 (test code <0.01 See_Comment [Auto mated = 7241296873) message] The system which generated this result transmit dain reference range : 10*3/?L. The reference range was not used to interpret this result as normal/abnormal . GRAN MAT (NEUT) % 78.9 % (test code = 770-8) IMM GRAN % (test code 1.70 % = 2398196342) LYMPH % (test code = 8.7 % 736-9) MONO % (test code = 9.1 % 5905-5) EOS % (test code = 0.9 % 713-8) BASO % (test code = 0.7 % 706-2) GRAN MAT x10^3(ANC) 11.96 10*3/uL 1.99-6.95 H (test code = 2208848896) IMM GRAN x10^3 (test 0.26 10*3/uL 0-0.06 H code = 5516814314) LYMPH x10^3 (test code 1.32 10*3/uL 1.09-3.23 = 731-0) MONO x10^3 (test code 1.38 10*3/uL 0.36-1.02 H = 742-7) EOS x10^3 (test code = 0.13 10*3/uL 0.06-0.53 711-2) BASO x10^3 (test code 0.11 10*3/uL 0.01-0.09 H = 704-7) Lab Interpretation Abnormal (test code = 64331-5) [facility] WITH [id number] 10:40:00 Test Item Value Reference Range Interpretation Comments WBC (test code = See_Comment H [Automated 9490-2) message] The sy stem which generated this [...] RDW-SD (test code = 46.3 fL 38.5-51.6 14510-4) RDW-CV (test code = 14.5 % 12.1-15.4 788-0) PLT (test code = See_Comment HH [Automated 777-3) message] The sy stem which generated this result transmitted reference range : 150 - 328 10*3/ ?L. The reference r meredith was not used to interpret this result as normal/abnormal . MPV (test code = 9.1 fL 9.8-13 L 15345-9) NRBC/100 WBC (test See_Comment [Automat ed code = 1969622896) message] The system which generated this result transmitted reference range : 0.0 - 10.0 /100 WBCs. The refer ence range was not u sed to interpret th is result as normal/abnormal . NRBC x10^3 (test code <0.01 See_Comment [Auto mated = 9051103385) message] The s ystem which generated this result transmitted reference range : 10*3/?L. The reference range was not used to interpret this result as normal/abnormal . GRAN MAT (NEUT) % 74.7 % (test code = 770-8) IMM GRAN % (test code 2.00 % = 1431338504) LYMPH % (test code = 10.0 % 736-9) MONO % (test code = 11.4 % 5905-5) EOS % (test code = 1.3 % 713-8) BASO % (test code = 0.6 % 706-2) GRAN MAT x10^3(ANC) 9.44 10*3/uL 1.99-6.95 H (test code = 0842498213) IMM GRAN x10^3 (test 0.25 10*3/uL 0-0.06 H code = 2237994115) LYMPH x10^3 (test code 1.26 10*3/uL 1.09-3.23 = 731-0) MONO x10^3 (test code 1.44 10*3/uL 0.36-1.02 H = 742-7) EOS x10^3 (test code = 0.16 10*3/uL 0.06-0.53 711-2) BASO x10^3 (test code 0.07 10*3/uL 0.01-0.09 = 704-7) Lab Interpretation Abnormal (test code = 90685-1) [facility] METABOLIC PANEL (NA, K, CL, CO2, GLUCOSE, BUN, CREATININE, CA)2020-04-24 10:39:00 Test Item Value Reference Range Interpretation Comments NA (test code = 133 mmol/L 135-145 L 6307480182) K (test code = 4.3 mmol/L 3.5-5 5499848822) CL (test code = 99 mmol/L 98-108 0679043122) CO2 TOTAL (test code = 29 mmol/L 23-31 3768412000) AGAP (test code = 2-16 4565502519) BUN (test code = 20 mg/dL 7-23 6308929165) GLUCOSE (test code = 109 mg/dL 70-110 0868301909) CREATININE (test code = 0.78 mg/dL 0.6-1.25 6328275297) CALCIUM (test code = 8.4 mg/dL 8.6-10.6 L 8392703218) eGFR Calculation mL/min/1.73m2 (Non-) (test code = 6088366924) eGFR Calculation mL/min/1.73m2 () (test code = 7996292646) GILBERTO (test code = GILBERTO) Association of [...] tests). Lab Interpretation Abnormal (test code = 58806-7) [facility] 10:39:00 Test Item Value Reference Range Interpretation Comments MAGNESIUM (test code = 3240571499) 2.2 mg/dL 1.7-2.4 Lab Interpretation (test code = Normal 92376-9) [facility] [id number] 09:30:06 1. ?Overall, no significant change in [...] findings as above.Preliminary Report Dictated by Resident: Eben Oro, Louis Rice MD., have reviewed this study and agree with theabove report.[facility] TH[facility] [id number] 03:46:28 Acute pulmonary emboli in the anterior [...] andmorphology. No significant pericardial thickening or effusion. Eafwsvgg-qi-bnsoy cardiomediastinal shift. Scattered subcentimeter mediastinal and bilateral [...] andmorphology. No significant pericardial thickening or effusion. Ktltdees-dd-odwqm cardiomediastinal shift.Scattered subcentimeter mediastinal and bilateral hilar [...] telephone. Preliminary Report Dictated by Resident: Louis Braden MD., have reviewed this study and agree with theabove report.[facility] NOW RAPID TESTING)2020-04-23 17:45:00 Test Item Value Reference Range Interpretation Comments SARS-CoV-2 Rapid ID NOW Not Detected Not Detected (test code = 72036-6) GILBERTO (test code = GILBERTO) ID NOW COVID-19 Assay is an isothermal nucleic acid amplification test intended for the qualitative detection of nucleic acid from SARS-CoV-2 viral RNA in nasopharyngeal (PRODUCT SAFETY OFFICER) specimens. It is used under Emergency Use [...] indicated. Lab Interpretation Normal (test code = 79539-3) [facility] 17:40:00 Test Item Value Reference Range Interpretation Comments PALB (test code = 70222-8) 11.8 mg/dL 18-45 L Lab Interpretation (test code = Abnormal 45408-1) [facility] [id number] 15:00:55 Stable appearance of left pleural effusion [...] old Male; left pleural effusion COMPARISON: CXR 04/22/2020FINDINGS:The tip of a left pigtail catheter remains [...] reviewed this study and agree with theabove report.[facility] [id number] 14:14:00 Test Item Value Reference Range Interpretation Comments K (test code = 4819798989) 4.8 mmol/L 3.5-5 Lab Interpretation (test code = Normal 23933-0) [facility] WITH [id number] 11:30:00 Test Item Value Reference Range Interpretation Comments WBC (test code = See_Comment H [Automated 6690-2) message] The sy stem which generated this result transmitted reference range : 4.20 - 10.70 10*3/?L. The reference range was not used to interpret this result as normal/abnormal . RBC (test code = See_Comment L [Automated 459-8) message] The sy stem which generated this [...] RDW-SD (test code = 45.0 fL 38.5-51.6 56471-9) RDW-CV (test code = 14.5 % 12.1-15.4 788-0) PLT (test code = See_Comment HH [Automated 777-3) message] The sy stem which generated this result transmitted reference range : 150 - 328 10*3/ ?L. The reference r meredith was not used to interpret this result as normal/abnormal . MPV (test code = 9.4 fL 9.8-13 L 83682-8) IPF % (test code = 1.6 % 1.2-10.7 Platelet count 1224687969) measured by fluorescence method. NRBC/100 WBC (test See_Comment [Automat ed code = 3361837679) message] The system which generated this result transmitted reference range : 0.0 - 10.0 /100 WBCs. The refer ence range was not u sed to interpret th is result as normal/abnormal . NRBC x10^3 (test code <0.01 See_Comment [Auto mated = 4689805707) message] The s ystem which generated this result transmitted reference range : 10*3/?L. The reference range was not used to interpret this result as normal/abnormal . GRAN MAT (NEUT) % 73.4 % (test code = 770-8) IMM GRAN % (test code 1.80 % = 7598926933) LYMPH % (test code = 12.6 % 736-9) MONO % (test code = 10.8 % 5905-5) EOS % (test code = 1.0 % 713-8) BASO % (test code = 0.4 % 706-2) GRAN MAT x10^3(ANC) 9.57 10*3/uL 1.99-6.95 H (test code = 6183347632) IMM GRAN x10^3 (test 0.24 10*3/uL 0-0.06 H code = 7743325748) LYMPH x10^3 (test code 1.64 10*3/uL 1.09-3.23 = 731-0) MONO x10^3 (test code 1.41 10*3/uL 0.36-1.02 H = 742-7) EOS x10^3 (test code = 0.13 10*3/uL 0.06-0.53 711-2) BASO x10^3 (test code 0.05 10*3/uL 0.01-0.09 = 704-7) Lab Interpretation Abnormal (test code = 29220-4) [facility] METABOLIC PANEL (NA, K, CL, CO2, GLUCOSE, BUN, CREATININE, CA)2020-04-23 10:52:00 Test Item Value Reference Range Interpretation Comments NA (test code = 132 mmol/L 135-145 L 4312882078) K (test code = 5.7 mmol/L 3.5-5 H 7673193144) CL (test code = 97 mmol/L 98-108 L 4005560876) CO2 TOTAL (test code = 26 mmol/L 23-31 0007284983) AGAP (test code = 2-16 0253859580) BUN (test code = 34 mg/dL 7-23 H 4442877215) GLUCOSE (test code = 101 mg/dL 70-110 0220435491) CREATININE (test code = 0.85 mg/dL 0.6-1.25 9541114934) CALCIUM (test code = 9.0 mg/dL 8.6-10.6 6285406307) eGFR Calculation mL/min/1.73m2 (Non-) (test code = 6821553542) eGFR Calculation mL/min/1.73m2 () (test code = 3162448137) GILBERTO (test code = GILBERTO) Association of [...] tests). Lab Interpretation Abnormal (test code = 35156-8) [facility] 10:52:00 Test Item Value Reference Range Interpretation Comments MAGNESIUM (test code = 9216408690) 2.3 mg/dL 1.7-2.4 Lab Interpretation (test code = Normal 88765-0) [facility] [id number] 13:26:55 FINDINGS/IMPRESSION: 1. ?A left pigtail chest [...] Preliminary Report Dictated by Resident: Lincoln Lala ?MD. Raúl, have reviewed this study and agree with theabove report.XR CHEST 1 VW HISTORY: left pleural effusion COMPARISON: Chest x-ray on 04/21/2020 [facility], Radiant Results Inft User - 04/22/2020 8:28 [...] reviewed this study and agree with theabove report.[facility] VW 2020-04-22 13:24:27FINDINGS/IMPRESSION: 1. ?A [...] x-ray on 04/20/2020 [facility], Radiant Results Inft - 04/22/2020 8:25 AM CDTXRCHEST 1 VWHISTORY: [...] this study and agree with theabove report. [facility] (NA, K, CL, CO2, GLUCOSE, BUN, CREATININE, CA)2020-04-22 11:49:00 Test Item Value Reference Range Interpretation Comments NA (test code = 132 mmol/L 135-145 L 0231440487) K (test code = 4.7 mmol/L 3.5-5 8475216763) CL (test code = 97 mmol/L 98-108 L 6979593920) CO2 TOTAL (test code = 30 mmol/L 23-31 5901086240) AGAP (test code = 2-16 8137631214) BUN (test code = 28 mg/dL 7-23 H 3148553203) GLUCOSE (test code = 117 mg/dL 70-110 H 9427435897) CREATININE (test code = 0.88 mg/dL 0.6-1.25 3906097681) CALCIUM (test code = 8.8 mg/dL 8.6-10.6 1761954554) eGFR Calculation mL/min/1.73m2 (Non-) (test code = 1591708279) eGFR Calculation mL/min/1.73m2 () (test code = 9758498197) GILBERTO (test code = GILBERTO) Association of [...] tests). Lab Interpretation Abnormal (test code = 37758-8) [facility] Test Item Value Reference Range Interpretation Comments MAGNESIUM (test code = 3046830053) 2.4 mg/dL 1.7-2.4 Lab Interpretation (test code = Normal 49124-5) [facility] WITH [id number] 11:23:00 Test Item Value Reference Range Interpretation [...] RDW-SD (test code = 44.9 fL 38.5-51.6 19313-8) RDW-CV (test code = 14.4 % 12.1-15.4 788-0) PLT (test code = See_Comment HH [Automated 777-3) message] The sy stem which generated this result transmitted reference range : 150 - 328 10*3/ ?L. The reference r meredith was not used to interpret this result as normal/abnormal . MPV (test code = 9.5 fL 9.8-13 L 94390-8) NRBC/100 WBC (test See_Comment [Automat ed code = 4031148981) message] The system which generated this result transmitted reference range : 0.0 - 10.0 /100 WBCs. The refer ence range was not u sed to interpret th is result as normal/abnormal . NRBC x10^3 (test code <0.01 See_Comment [Auto mated = 6580676104) message] The s ystem which generated this result transmitted reference range : 10*3/?L. The reference range was not used to interpret this result as normal/abnormal . GRAN MAT (NEUT) % 80.3 % (test code = 770-8) IMM GRAN % (test code 1.50 % = [id number]) LYMPH % (test code = 7.2 % 736-9) MONO % (test code = 9.7 % 5905-5) EOS % (test code = 0.7 % 713-8) BASO % (test code = 0.6 % 706-2) GRAN MAT x10^3(ANC) 9.99 10*3/uL 1.99-6.95 H (test code = [id number]) IMM GRAN x10^3 (test 0.19 10*3/uL 0-0.06 H code = [id number]) LYMPH x10^3 (test code 0.90 10*3/uL 1.09-3.23 L = 731-0) MONO x10^3 (test code 1.21 10*3/uL 0.36-1.02 H = 742-7) EOS x10^3 (test code = 0.09 10*3/uL 0.06-0.53 711-2) BASO x10^3 (test code 0.07 10*3/uL 0.01-0.09 = 704-7) Lab Interpretation Abnormal (test code = 71969-5) [facility] WITH [id number] 14:15:00 Test Item Value Reference Range Interpretation Comments WBC (test code = See_Comment H [Automated 0890-2) message] The sy stem which generated this result transmitted reference range : 4.20 - 10.70 10*3/?L. The reference range was not used to interpret this result as normal/abnormal . RBC (test code = See_Comment L [Automated 359-8) message] The sy stem which generated this [...] RDW-SD (test code = 44.4 fL 38.5-51.6 65365-9) RDW-CV (test code = 14.2 % 12.1-15.4 788-0) PLT (test code = See_Comment HH [Automated 777-3) message] The sy stem which generated this result transmitted reference range : 150 - 328 10*3/ ?L. The reference r meredith was not used to interpret this result as normal/abnormal . MPV (test code = 9.0 fL 9.8-13 L 60067-6) NRBC/100 WBC (test See_Comment [Automat ed code = [id number]) message] The system which generated this result transmitted reference range : 0.0 - 10.0 /100 WBCs. The refer ence range was not u sed to interpret th is result as normal/abnormal . NRBC x10^3 (test code <0.01 See_Comment [Auto mated = 6758575292) message] The s ystem which generated this result transmitted reference range : 10*3/?L. The reference range was not used to interpret this result as normal/abnormal . GRAN MAT (NEUT) % 76.4 % (test code = 770-8) IMM GRAN % (test code 1.30 % = 5499271935) LYMPH % (test code = 10.9 % 736-9) MONO % (test code = 9.6 % 5905-5) EOS % (test code = 1.1 % 713-8) BASO % (test code = 0.7 % 706-2) GRAN MAT x10^3(ANC) 9.41 10*3/uL 1.99-6.95 H (test code = 5691054496) IMM GRAN x10^3 (test 0.16 10*3/uL 0-0.06 H code = 1630805715) LYMPH x10^3 (test code 1.34 10*3/uL 1.09-3.23 = 731-0) MONO x10^3 (test code 1.18 10*3/uL 0.36-1.02 H = 742-7) EOS x10^3 (test code = 0.13 10*3/uL 0.06-0.53 711-2) BASO x10^3 (test code 0.08 10*3/uL 0.01-0.09 = 704-7) Lab Interpretation Abnormal (test code = 68472-7) [facility] METABOLIC PANEL (NA, K, CL, CO2, GLUCOSE, BUN, CREATININE, CA)2020-04-21 13:47:00 Test Item Value Reference Range Interpretation Comments NA (test code = 130 mmol/L 135-145 L 5638664193) K (test code = 4.8 mmol/L 3.5-5 2568320823) CL (test code = 95 mmol/L 98-108 L 9826926076) CO2 TOTAL (test code = 29 mmol/L 23-31 1880602600) AGAP (test code = 2-16 5015899096) BUN (test code = 25 mg/dL 7-23 H 8902690276) GLUCOSE (test code = 98 mg/dL 70-110 9400054494) CREATININE (test code = 0.78 mg/dL 0.6-1.25 7349175607) CALCIUM (test code = 8.2 mg/dL 8.6-10.6 L 9286715761) eGFR Calculation mL/min/1.73m2 (Non-) (test code = 1679125512) eGFR Calculation mL/min/1.73m2 () (test code = 2934219162) GILBERTO (test code = GILBERTO) Association of [...] tests). Lab Interpretation Abnormal (test code = 76468-2) [facility]00 Test Item Value Reference Range Interpretation Comments MAGNESIUM (test code = 0342141713) 2.1 mg/dL 1.7-2.4 Lab Interpretation (test code = Normal 56676-6) [facility] 21:30:00 Test Item Value Reference Range Interpretation Comments PALB (test code = 59487-3) 9.3 mg/dL 18-45 L Lab Interpretation (test code = Abnormal 95935-4) [facility] [id number] 14:32:00 Test Item Value Reference Range Interpretation Comments BODY FLUID CULT No organisms isolated (test code = 611-4) Gram stain (test Occasional (Rare) code = 664-3) Polymorphonuclear leukocytes [facility] [id number] 13:09:21EXAM: XR CHEST 1 VW HISTORY: ct [...] removed Sitting up in bedCOMPARISON: None.FINDINGS:The upper most of the 2 chest tubes on the left was removed, but the lowerone remains in place. A large volume of pleural effusion obscures the leftcostophrenic angle, the left hemidiaphragm and the cardiac apex. Fluffydensities in the left mid lung are probably due to atelectasis. The rightlung is well-expanded and clear. The heart and great vessels are normal. [facility] METABOLIC PANEL (NA, K, CL, CO2, GLUCOSE, BUN, CREATININE, CA)2020-04-20 11:00:00 Test Item Value Reference Range Interpretation Comments NA (test code = 132 mmol/L 135-145 L 4269787064) K (test code = 5.2 mmol/L 3.5-5 H 1438870556) CL (test code = 100 mmol/L 98-108 3130732557) CO2 TOTAL (test code = 24 mmol/L 23-31 3526980658) AGAP (test code = 2-16 5384382431) BUN (test code = 19 mg/dL 7-23 0885646952) GLUCOSE (test code = 121 mg/dL 70-110 H 3065659498) CREATININE (test code = 0.77 mg/dL 0.6-1.25 9936590280) CALCIUM (test code = 8.2 mg/dL 8.6-10.6 L 5142188624) eGFR Calculation mL/min/1.73m2 (Non-) (test code = 4686921628) eGFR Calculation mL/min/1.73m2 () (test code = 4335295033) GILBERTO (test code = GILBERTO) Association of [...] tests). Lab Interpretation Abnormal (test code = 09919-9) [facility] 11:00:00 Test Item Value Reference Range Interpretation Comments MAGNESIUM (test code = 4794837155) 2.1 mg/dL 1.7-2.4 Lab Interpretation (test code = Normal 83593-9) [facility]2020-08-28 11:00:00 Test Item Value Reference Range Interpretation Comments PHOSPHORUS (test code = 4259622023) 3.9 mg/dL 2.5-5 Lab Interpretation (test code = Normal 95178-2) [facility] [id number] 10:23:00 Test Item Value Reference Range Interpretation Comments WBC (test code = See_Comment H [Automated 0144-2) message] The system which generated this result transmit dain reference range : 4.20 - 10.70 10*3/?L. The reference range was not used to interpret this result as normal/abnormal . RBC (test code = See_Comment L [Automated 759-8) message] The system which generated this result [...] RDW-SD (test code = 45.2 fL 38.5-51.6 90249-7) RDW-CV (test code = 14.2 % 12.1-15.4 788-0) PLT (test code = See_Comment HH [Automated 777-3) message] The system which generated this result transmit dain reference range : 150 - 328 10*3/ ?L. The reference range was not u sed to interpret th is result as normal/abnormal . MPV (test code = 9.3 fL 9.8-13 L 24577-6) NRBC/100 WBC (test See_Comment [Automat ed code = 7674265127) message] The system which generated this result transmit dain reference range : 0.0 - 10.0 /100 WBCs. The reference range was not used to interpret this result as normal/abnormal . NRBC x10^3 (test code <0.01 See_Comment [Auto mated = 7444588832) message] The system which generated this result transmit dain reference range : 10*3/?L. The reference range was not used to interpret this result as normal/abnormal . GRAN MAT (NEUT) % 79.8 % (test code = 770-8) IMM GRAN % (test code 1.50 % = 0215694583) LYMPH % (test code = 9.8 % 736-9) MONO % (test code = 7.5 % 5905-5) EOS % (test code = 0.6 % 713-8) BASO % (test code = 0.8 % 706-2) GRAN MAT x10^3(ANC) 10.64 10*3/uL 1.99-6.95 H (test code = 0185288742) IMM GRAN x10^3 (test 0.20 10*3/uL 0-0.06 H code = 0869487651) LYMPH x10^3 (test code 1.31 10*3/uL 1.09-3.23 = 731-0) MONO x10^3 (test code 1.00 10*3/uL 0.36-1.02 = 742-7) EOS x10^3 (test code = 0.08 10*3/uL 0.06-0.53 711-2) BASO x10^3 (test code 0.10 10*3/uL 0.01-0.09 H = 704-7) Lab Interpretation Abnormal (test code = 00805-7) [facility] [id number] 12:25:53 No residual pleural effusion noted. Preliminary [...] heart is unchanged. No acute bony abnormality. [facility], Radiant Results Inft - 04/19/2020 7:27 AM CDTPROCEDURE: XR CHEST [...] reviewed this study and agree with theabove report.[facility] (NA, K, CL, CO2, GLUCOSE, BUN, CREATININE, CA)2020-04-19 11:09:00 Test Item Value Reference Range Interpretation Comments NA (test code = 133 mmol/L 135-145 L 3553231336) K (test code = 4.2 mmol/L 3.5-5 1905391691) CL (test code = 101 mmol/L 98-108 5542753292) CO2 TOTAL (test code = 26 mmol/L 23-31 7239136149) AGAP (test code = 2-16 9696441935) BUN (test code = 15 mg/dL 7-23 9778975605) GLUCOSE (test code = 113 mg/dL 70-110 H 3850574955) CREATININE (test code = 0.73 mg/dL 0.6-1.25 3950376926) CALCIUM (test code = 8.1 mg/dL 8.6-10.6 L 9284892305) eGFR Calculation mL/min/1.73m2 (Non-) (test code = 4283069781) eGFR Calculation mL/min/1.73m2 () (test code = 8310197848) GILBERTO (test code = GILBERTO) Association of [...] tests). Lab Interpretation Abnormal (test code = 79743-0) [facility]2020-08-27 11:09:00 Test Item Value Reference Range Interpretation Comments MAGNESIUM (test code = 1160282324) 2.1 mg/dL 1.7-2.4 Lab Interpretation (test code = Normal 25696-4) [facility]2020-08-27 11:09:00 Test Item Value Reference Range Interpretation Comments PHOSPHORUS (test code = 7156827961) 3.9 mg/dL 2.5-5 Lab Interpretation (test code = Normal 71471-0) [facility] [id number] 10:59:00 Test Item Value Reference Range Interpretation [...] RDW-SD (test code = 46.0 fL 38.5-51.6 85893-4) RDW-CV (test code = 14.2 % 12.1-15.4 788-0) PLT (test code = See_Comment HH [Automated 777-3) message] The sy stem which generated this result transmitted reference range : 150 - 328 10*3/ ?L. The reference r meredith was not used to interpret this result as normal/abnormal . MPV (test code = 9.3 fL 9.8-13 L 33074-4) NRBC/100 WBC (test See_Comment [Automat ed code = 4228414439) message] The system which generated this result transmitted reference range : 0.0 - 10.0 /100 WBCs. The refer ence range was not u sed to interpret th is result as normal/abnormal . NRBC x10^3 (test code <0.01 See_Comment [Auto mated = 6788328362) message] The s ystem which generated this result transmitted reference range : 10*3/?L. The reference range was not used to interpret this result as normal/abnormal . GRAN MAT (NEUT) % 79.2 % (test code = 770-8) IMM GRAN % (test code 1.00 % = 2514833371) LYMPH % (test code = 11.4 % 736-9) MONO % (test code = 6.7 % 5905-5) EOS % (test code = 1.0 % 713-8) BASO % (test code = 0.7 % 706-2) GRAN MAT x10^3(ANC) 9.49 10*3/uL 1.99-6.95 H (test code = 6598351729) IMM GRAN x10^3 (test 0.12 10*3/uL 0-0.06 H code = 7713181126) LYMPH x10^3 (test code 1.36 10*3/uL 1.09-3.23 = 731-0) MONO x10^3 (test code 0.80 10*3/uL 0.36-1.02 = 742-7) EOS x10^3 (test code = 0.12 10*3/uL 0.06-0.53 711-2) BASO x10^3 (test code 0.08 10*3/uL 0.01-0.09 = 704-7) Lab Interpretation Abnormal (test code = 58804-0) [facility] [id number] 22:29:00 Test Item Value Reference Range Interpretation Comments Blood Culture-Aerobic No organisms No growth Previo us (test code = 66739-6) isolated prelim inary verified result was Culture In Progress on 04/13/2020 at 06 06 CDT Blood Culture positive. No growth AA Previous Culture-Anaerobic See Blood Culture preli minary (test code = 43610-6) Workup for verifi ed result additional was Culture In information. Progress on 04/12/2020 at 18 01 CDT Lab Interpretation Abnormal (test code = 00596-6) [facility] TUBE WITH IMAGING 2020-04-18 15:38:00Successful image guided 10 Ghanaian pigtail chest tube insertioninto the left pleural [...] was obtained. Prior to beginning the procedure, [place] Protocolwas performed to confirm the patient's identity [...] pleural space. The tractwas dilated to 10 Ghanaian, and a 10 Ghanaian pigtail chest tube was insertedand coiled within [...] was obtained. Prior to beginning the procedure, [place] Protocolwas performed to confirm the patient's identity [...] pleural space. The tractwas dilated to 10 Ghanaian, and a 10 Ghanaian pigtail chest tube was insertedand coiled within [...] of pleural fluid. IMPRESSIONSuccessful image guided 10 Ghanaian pigtail chest tube insertioninto the left pleural space. PLAN: Post procedure chest radiograph will be obtained.[facility] [id number] 13:37:38 Hazy left midlung opacity, may represent [...] insize. Presumed pleural effusion improved since 04/17. Continuedlow lungvolume on the left. No acute bony abnormality. [facility], Radiant Results Inft User - 04/18/2020 8:40 AM CDTPROCEDURE: XR CHEST 1 VWCLINICAL INDICATION: left pleural effusion COMPARISON: Chest x-raydated 04/17/2020.FINDINGS:Hazy left midlung opacity is seen, may [...] reviewed this study and agree with the abovereport.[facility] (NA, K, CL, CO2, GLUCOSE, BUN, CREATININE, CA)2020-04-18 11:18:00 Test Item Value Reference Range Interpretation Comments NA (test code = 134 mmol/L 135-145 L 1388483712) K (test code = 4.4 mmol/L 3.5-5 4903877771) CL (test code = 102 mmol/L 98-108 3827106612) CO2 TOTAL (test code = 26 mmol/L 23-31 3737578960) AGAP (test code = 2-16 3638794525) BUN (test code = 12 mg/dL 7-23 1188422657) GLUCOSE (test code = 106 mg/dL 70-110 9987163852) CREATININE (test code = 0.74 mg/dL 0.6-1.25 8772314075) CALCIUM (test code = 7.5 mg/dL 8.6-10.6 L 3973850057) eGFR Calculation mL/min/1.73m2 (Non-) (test code = 0493846334) eGFR Calculation mL/min/1.73m2 () (test code = 3180028890) GILBERTO (test code = GILBERTO) Association of [...] tests). Lab Interpretation Abnormal (test code = 86526-1) [facility]2020-08-26 11:18:00 Test Item Value Reference Range Interpretation Comments MAGNESIUM (test code = 0247057800) 2.0 mg/dL 1.7-2.4 Lab Interpretation (test code = Normal 12662-7) [facility]2020-08-26 11:18:00 Test Item Value Reference Range Interpretation Comments PHOSPHORUS (test code = 9124296545) 3.4 mg/dL 2.5-5 Lab Interpretation (test code = Normal 41643-2) [facility] [id number] 10:46:00 Test Item Value Reference Range Interpretation Comments WBC (test code = See_Comment H [Automated 0790-2) message] The system which generated this result transmit dain reference range : 4.20 - 10.70 10*3/?L. The reference range was not used to interpret this result as normal/abnormal . RBC (test code = See_Comment L [Automated 309-8) message] The system which generated this result [...] RDW-SD (test code = 46.5 fL 38.5-51.6 31908-5) RDW-CV (test code = 14.5 % 12.1-15.4 788-0) PLT (test code = See_Comment HH [Automated 777-3) message] The system which generated this result transmit dain reference range : 150 - 328 10*3/ ?L. The reference range was not u sed to interpret th is result as normal/abnormal . MPV (test code = 9.6 fL 9.8-13 L 27285-6) NRBC/100 WBC (test See_Comment [Automat ed code = 6930146865) message] The system which generated this result transmit dain reference range : 0.0 - 10.0 /100 WBCs. The reference range was not used to interpret this result as normal/abnormal . NRBC x10^3 (test code <0.01 See_Comment [Auto mated = 5233178329) message] The system which generated this result transmit dain reference range : 10*3/?L. The reference range was not used to interpret this result as normal/abnormal . GRAN MAT (NEUT) % 82.1 % (test code = 770-8) IMM GRAN % (test code 0.90 % = 1790603040) LYMPH % (test code = 9.2 % 736-9) MONO % (test code = 6.6 % 5905-5) EOS % (test code = 0.7 % 713-8) BASO % (test code = 0.5 % 706-2) GRAN MAT x10^3(ANC) 10.02 10*3/uL 1.99-6.95 H (test code = 2727244301) IMM GRAN x10^3 (test 0.11 10*3/uL 0-0.06 H code = 2727364386) LYMPH x10^3 (test code 1.12 10*3/uL 1.09-3.23 = 731-0) MONO x10^3 (test code 0.80 10*3/uL 0.36-1.02 = 742-7) EOS x10^3 (test code = 0.08 10*3/uL 0.06-0.53 711-2) BASO x10^3 (test code 0.06 10*3/uL 0.01-0.09 = 704-7) Lab Interpretation Abnormal (test code = 86501-1) [facility] [id number] 20:01:00 Test Item Value Reference Range Interpretation Comments Blood Culture-Aerobic No organisms No growth Previo us (test code = 82119-9) isolated prelim inary verified result was Culture [...] Culture-Anaerobic isolated preliminar y (test code = 63379-2) verifi ed result was Culture In Progress [...] CDT Lab Interpretation Normal (test code = 51985-6) [facility] [id number] 19:38:57 FINDINGS/IMPRESSION: There are 2 left-sided chest [...] 2:35 PM on 04/17/[address] Mathieu Chapa.[facility] Pleural [id number] 17:29:00 Test Item Value Reference Range Interpretation Comments Case Report (test code Non-Gynecologic = 7487042990) Cytology ?Case: [id number] ?Authorizing Provider: ?Vance Stafford MD ?Collected: ? 04/16/2020 1650 ?Ordering Location: ? ? Surgery ([facility]) ? Received: ?04/16/2020 1809 ?Pathologist: ? Alice Aj, ? Specimen: ? ?PLEURAL, LEFT, EFFUSION ? Final Diagnosis (test j3eouFMlWJCec0fnZPRivN code = 0216035055) FuZzEwMzNcZnRuYmpcdWMx AOytidYcPKumi0QgT2HiRq AwMFxhbnNpXGRlZmxhbmcx EDIxXXZ4dvQmUMQqDFsoAT YjACmlUf5clQHdrOmnQnIa LOLfk2lxggQQpxnajIo7z0 wpUXMaDqD9fQGkTKgpT2xh nvWczZYrJSHaIFg6aR53VD GcfU1mwGJoXMpcumLbRoG8 TYhsTDKaEcG0WLEyfQYwKY AdJ4yoDQOuCLzuXTSxAGai wKRmCGJ7tCzut3O5eXGhrY CfrImtRhDgPvCqALSTa1Jj FNs7wEafE6DvDFElQzR1pA QgUGFyYWdyYXBoIEZvbnQ7 fH04TNsbevD8rWGuj8Ifw0 4xa772tJ1xmTNiINR5LROt AZAhiEMjAZUpRZM6EZZpvD NkI1jmXIuuXH3misxhIFP5 MFxtYXJndDcyMFxtYXJnYj KstAJiYMVcoPrkOIwtj336 MAF4NpXjKF9zK4Zyr3R6xS 9maXRcZGVmdGFiNzIwXGZv vo4jyPFeIYzgf9LiAGE5nc O7yKOyaUQkLPGyJG15Rmru z4VsFvedVUV3JUAjgnFll7 Ape3wsBsVirzKoM7kiM7Wd ZHJoZWFkXHBnYnJkcmZvb3 Jss1JjyDThzYf9t2wjWLXa ILVuhPyla3vbPQP7LVRwK5 I0xXJka5awLBzhESHddPA2 woImMEJhoOVyR6GakB5vZG rvGV1xheo9e1ugFcCaUO9v cfkpn9vmEQncYEQzTVN3Jp CiGNKls5IcttkpKsRpq3Vt dNFsBOpqP06bh033FAPlgz RgX4dvhYJjgjqmyQWdmksu NTtrkyQ6UHXyywXxxImuzI 3aYhLaObNnOLttRT4tJOYg V6pomZQsGBYgFASbN9oxAt YxtU2ljImhMHnsQjMgMxSr MFxiIEEuICBQTEVVUkEsIE oLOrQ8DFMMB6YYY9RTCHOR SVMgRkxVSURccGFyICAgIC TuQT3vMJ6BZRWUFWZIGS9V NDHJBqAHV93QXsRYNRfXXI 6JPGCRD8ITLRnDP7lvVYZb ICAgICAgLSBORUdBVElWRS PFI1GbCGZEVSlVVH9BQKBC TExTXHBsYWluXGYxXGZzMj BcbGFuZzEwMzNcaGljaFxm LArmDzNkSRVoGNvgQ1ljTp BqJdUcWZPgYKYTXHLOV87V MR9YUHpfANL4y5wacUPvUX KrwRTwTzByGCJbOLPvp9tu ZGVmbGFuZzEwMzNcZnRuYm zwcGYcDHTqNdZmd8sxn694 vLDcs7agLJSeCyH3nUXuMQ BlrKnzhnw7hIdeNoCqYOMg d7oifnCwClSzKODiUSSoEM JwgNDvG739TKKuUQjng7fl y0WoETNsvXUhd4M9LEQEHR ahAlSfB666q5zgc3vgvcDl hIV8KYQhDTA1MQtptyAbdk D7OFtttILnJtY7TBeiqzIb TXicxyDeyrLsJff8TPAhW1 29DMV6oMtto5xsUJO2IQRy LPAgUsbnLr7jrFBrB897OH KzKHMCBBUysNj2CZGluuOb iqRvsSAWs205W374h7ucDV ZvkePrrKqHscrtt6jxW302 XHBhcGVydzEyMjQwXHBhcG YtnPG4ORXeFT0uuplcKRke OAyhYSQltkP1QIOfvMSqF9 ByEMFoMN9iwfvpDPI6LIun ZIZzPLF5NeNaKHXuc9Lgza i6IiObco3nzo32YIB1l6Cg iPxgBQG6GUN0ZqFbTh1kmK AlOTGoLB5bScYpeTXvWWTt zd41jWrmHMdcslIlrT3bLk XuQMBdoNUwURLyCV9mcXAo NXJdjJ0lyaplSWYxCtHemg vaVPUsgWwubrHjDo9pqDdt CRB3OFwfZ8aumL2kLoO5VL yxP5timB1sJEg8ATyhwUL7 CIXjoQ3kEE6fbkqmq8hdWG lgITboWSSqmgO8zeC0BARo dIBuF1HsfW6eIXTmYK2eav ade3igDEI5GDwdYHUtHMF8 BrFpGOFpg5Vwxze1RtMmq8 KqtXJoOXjwY21pm215YULi raImM2oasIBkblzpiUGnxr byJDczjuK8JWQaLLDpHRrb XGYxXGZzMjBcbGFuZzEwMz NcaGljaFxmMVxkYmNoXGYx ZKwqY4aqZvRpT2DaSFSwJl KcpRDbENfggQY9FMScARWx r07jxCw3OONrtmfim8YlEK SsoUUrvUUcjS0fuiAlw8bx XQHmWXLoKJOjQ6FbLBC6yL ZlHUMueDXxvLD2RO0hzfBa NF5tPMGgAlhkwwWfpEWrai CzGFWqJNvtt6ryNO1zDNOr zUiefP1qoNW6CTQgd2wmhZ LioQDqn3knz7VxbsRkNGpl AWRyZTarAPWvXZZdXO4sEH AcjQYpmiZch9H1ScplqNEf zmbaLzdfzuK4BLezrwpzZI UaTEfvR1yiVxHyKUVgdQpg Mvpam4IjBMQfMWVkWoljlI FyfX0= Final Diagnosis Comment l3whpYGrSOJhhVVhWhAvHE (test code = YyREZzt1fzYTCayUSwBaQv 9510321795) MzNcZnRuYmpcdWMxXGRlZm Vvl7bgi034dSTcv3jyAQHr BjP7jTQnUGNesVSkF934f2 acl0mcmlEusSC5ATFfQGR8 TIkmylYrohA0KNjgrPYxWc O6KVcqdxBjDXyknmRbloCa Wgl7EOInX651TWE0vUgiz1 prHEV2PTGzEIQvWrTzWo0m hZHgB919IHDgJERWVZHmtV w1LRMykkWnwsJheJNOh893 N268k8juRMMfcxOnyMoOpe tur5ioF078YTTpzGVjpmSm IoPwRDHriYYnsHQ4KZQuJA 4qqfheVSU1LQclSDAcglVa MGFqkFHhG4R4FhLlsTVsB6 RaAUvlXGHligs4VxUjZf2l hZSbkDP3QAgqb8uxh5tirN YyAel0RLRjHqJfLgqgSUut f9Hvv9teGOZpdi1lINH4oX IphQium6E2sLHcVACvyPSp fsRcRFNfZrA2JIroTS7ctr 04LGAnVBO0dy9pjRPllXjv nmCnzQWaSZapC3JmWFQad3 86VUUyH1HtBOYlx7U3tyJq NqUhYQEavIO5jfH9SCFoHY e8vHOgesB2ckYccMXpF1tb pF8mGJfgGP8wkedhm0pfVZ Y4LNabYHRpnOB5pgpuLUlp GAQfCpR7ixFlbEZxJXFdtH gfSAaqc977PXA6QjAlONQl x3GhE8EusJqzJ79riEmuB6 6bHRMfmNituA3oxIwolS6s ZjBcZnMyNFxxbFxwbGFpbl xmMFxmczIwXGxhbmcxMDMz NWcpO3mzDiAbIEFmaUwpFK mja3MdVVBxDHDzNmJoI81w UULba1vbf9LvrGq0FOMyaZ 8bfXJdnLK8nS2oWDvrpCuu yXQbMY1vxJ8zsiCsvAWqUC D5mm3azZfuvcmoSlG4KEn5 cHRrw9I8rYXsBNKoXDEpkM LlpM6xTBZbm04jyBG1RQ00 GJlwsUwpQG1loETnAK2xQm 2jtASppDjdVV34CKCkkQqf CPefET23zSXpWUWxSDtcDY J9 Clinical Information Clinical Hx: ?Total (test code = colectomy complicated [id number]) . Requested per consulting surgery team. Gross Description (test u3cqePDnAUSzdWVlNhHlIP code = [id number]) JlHUOli9daWFPbeZDgNgRh MzNcZnRuYmpcdWMxXGRlZm Sre6dym867bQFvd8nyPYDr JmW0dEKjVAQqmUAtW819z3 kan8tzrwMmoXG6CZWnUJM5 FCsabeZuxuM9QWdfjLDtFn E6FJhmemIkBOvyvfMebbEf Ats4GXQuO820PTS0eNcxq9 ftMSY3TUHnHKDyXxSeZq0c hMNjP147TXZnTMNNBAShnN x1SLNattDorvVkaCTAb110 K518w6zcIHAnyqYliVdKad xdn9hzU682CVOonSMuznWh EzHiHUUatSZroLX1GEGkDW 2ksenlPFQ3CAxzBLJbozTt QPKztZVjR8X5ZbYecQBqO9 CpKCktLTOhmet3ZkDgZk6s rALkzIA1GHtiv2rgy7pwbM XfWsu6YIJeJiMlXqztLYkv i1Qas8toETNfti4oTOT1tM FpuVpnc5L3xWOfCRKrhOPo noRkEXViBgM7ECrhJM5mnp 49BSXoFAE4nk4bmXHpqAhv udMmgTZdWUkoW5XkBIXfh5 61CAXjT1AxSFUdc0N5gyIt GmWrGIUivFC7yuI6XGImBB s5hIYraoO4sfUhjVCfQ3gv eL6eYXikBW4havbds6rzMG W8SFqdCPRafAL0ydvdOAcc XMBbKcN1ylBrfDPeEFYhhY dgVHxux738XWO1IrGsALYy p9RqM0LfjFezA83tnRibS7 1sCUJanQzlsR7mmEfkdD0s ZjBcZnMyNFxxbFxwbGFpbl xmMFxmczIwXGxhbmcxMDMz HKheG9irNmBzACCikFtnGZ pop5UqWAInWFXnYyPrMQIl SEKRLIBHLxZwPTqJVeN5DR MPS8XMY6FYRFYCAGHdHqtX ZHJzkBGeUDYvO5JtrkBxBK VvMALhZQonHZEjBLJpO1Tm h4AwbQKtfN36RLJycWkyFR xwYXIgUHJlcGFyZWQgMiBz lGjcUFWbWKCcPTKtJW7gK8 8zHJ18IKH6rA2qbRelXTCh czXsBYIXg09jqj10h6y1SQ O7xH4tsGzeWWSmXOAaesX1 gG8tTPpbHUP5 Embedded Images (test code = 4405062117) [facility] [id number] 13:05:21EXAM: XR CHEST 1 VW HISTORY: post [...] the chest is little different than noted yesterday.[facility] WITH [id number] 11:18:00 Test Item Value Reference Range Interpretation Comments WBC (test code = See_Comment H [Automated 4690-2) message] The system which generated this result [...] RDW-SD (test code = 47.8 fL 38.5-51.6 60868-4) RDW-CV (test code = 14.7 % 12.1-15.4 788-0) PLT (test code = See_Comment HH [Automated 777-3) message] The system which generated this result transmit dain reference range : 150 - 328 10*3/ ?L. The reference range was not u sed to interpret th is result as normal/abnormal . MPV (test code = 9.9 fL 9.8-13 17241-3) NRBC/100 WBC (test See_Comment [Automat ed code = 9912906282) message] The system which generated this result transmit dain reference range : 0.0 - 10.0 /100 WBCs. The reference range was not used to interpret this result as normal/abnormal . NRBC x10^3 (test code <0.01 See_Comment [Auto mated = 5629514477) message] The system which generated this result transmit dain reference range : 10*3/?L. The reference range was not used to interpret this result as normal/abnormal . GRAN MAT (NEUT) % 81.7 % (test code = 770-8) IMM GRAN % (test code 1.10 % = 8149158468) LYMPH % (test code = 9.1 % 736-9) MONO % (test code = 7.3 % 5905-5) EOS % (test code = 0.5 % 713-8) BASO % (test code = 0.3 % 706-2) GRAN MAT x10^3(ANC) 10.91 10*3/uL 1.99-6.95 H (test code = 8802985204) IMM GRAN x10^3 (test 0.15 10*3/uL 0-0.06 H code = 0332753135) LYMPH x10^3 (test code 1.21 10*3/uL 1.09-3.23 = 731-0) MONO x10^3 (test code 0.97 10*3/uL 0.36-1.02 = 742-7) EOS x10^3 (test code = 0.07 10*3/uL 0.06-0.53 711-2) BASO x10^3 (test code 0.04 10*3/uL 0.01-0.09 = 704-7) Lab Interpretation Abnormal (test code = 74328-2) [facility] METABOLIC PANEL (NA, K, CL, CO2, GLUCOSE, BUN, CREATININE, CA)2020-04-17 10:49:00 Test Item Value Reference Range Interpretation Comments NA (test code = 134 mmol/L 135-145 L 4647695493) K (test code = 4.2 mmol/L 3.5-5 7919420988) CL (test code = 103 mmol/L 98-108 8419096859) CO2 TOTAL (test code = 26 mmol/L 23-31 1863616645) AGAP (test code = 2-16 9603014594) BUN (test code = 12 mg/dL 7-23 9005524942) GLUCOSE (test code = 107 mg/dL 70-110 2673937286) CREATININE (test code = 0.74 mg/dL 0.6-1.25 9354949526) CALCIUM (test code = 7.8 mg/dL 8.6-10.6 L 8842928096) eGFR Calculation mL/min/1.73m2 (Non-) (test code = 2368708911) eGFR Calculation mL/min/1.73m2 () (test code = 2511329566) GILBERTO (test code = GILBERTO) Association of [...] tests). Lab Interpretation Abnormal (test code = 10985-3) [facility] Test Item Value Reference Range Interpretation Comments MAGNESIUM (test code = 6557859751) 2.3 mg/dL 1.7-2.4 Lab Interpretation (test code = Normal 53970-8) [facility] 10:[facility]:00 Test Item Value Reference Range Interpretation Comments PHOSPHORUS (test code = 8579123024) 3.8 mg/dL 2.5-5 Lab Interpretation (test code = Normal 82236-3) [facility] TOTAL BODY [id number] 00:37:00 Test Item Value Reference Range Interpretation Comments LDH BF (test code = 3707 U/L 7185576089) UNSPUN BODY FLUID Light Yellow COLOR (test code = 1098548159) UNSPUN BODY FLUID Clear CLARITY (test code = 6446472293) SPUN BODY FLUID Light Yellow COLOR (test code = 1595859983) SPUN BODY FLUID Clear CLARITY (test code = 0790181318) Sediment (test code The sediment volume is 0.1 = 8636860691) mLs of the total fluid volume of 3mLs and its color is white. GILBERTO (test code = Test developed and GILBERTO) characteristics determined by [facility] Laboratory Services. [facility] 1 [id number] 00:22:53 1. ?Left lower lung zone 2 [...] fortechnique. Bones: No acute osseous abnormalityis seen. [facility], Radiant Results Inft User - [...] compared to 817 with a possible small pneumothorax.[facility] DIRECT [id number] 00:10:00 Test Item Value Reference Range Interpretation Comments BF COLOR Light Yellow (test code = 3198168209) BF WBC Count See_Comment [Automated (test code = message] The sy stem 0855347628) which generated this result transmitted reference range : /?L. The refere nce range was not u sed to interpret th is result as normal/abnormal . BF RBC Count <3000 See_Comment [Automated (test code = message] The sy stem 2039577150) which generated this result transmitted reference range : /?L. The refere nce range was not u sed to interpret th is result as normal/abnormal . GILBERTO (test The reference range code = GILBERTO) and other method performance specifications have not been established for this body fluid. ?The test results must be integrated into the clinical context for interpretation. [facility] MANUAL [id number] 00:10:00 Test Item Value Reference Range Interpretation Comments BF SEGS (test code = 9786566028) 78 % MACROPHAGE (test code = 4357979217) 22 % #CELS CNTD (test code = 0743273440) [facility]oAmylase Body [id number] 00:03:00 Test Item Value Reference Range Interpretation Comments AMYLASE BF (test 313 U/L code = 1958828332) UNSPUN BODY FLUID Yellow COLOR (test code = 0926685442) UNSPUN BODY FLUID Clear CLARITY (test code = 7219070297) SPUN BODY FLUID Yellow COLOR (test code = 9697699710) SPUN BODY FLUID Clear CLARITY (test code = 3601397980) Sediment (test code The sediment volume is = 0062257952) <0.1 mLs of the total fluid volume of 1mL and its color is red. GILBERTO (test code = Test developed and GILBERTO) characteristics determined by [facility] Laboratory Services. [facility]oGlucose Body [id number] 00:03:00 Test Item Value Reference Range Interpretation Comments GLUCOSE BF (test 57 mg/dL code = 9076368096) UNSPUN BODY FLUID Yellow COLOR (test code = 4059385124) UNSPUN BODY FLUID Clear CLARITY (test code = 8724211159) SPUN BODY FLUID Yellow COLOR (test code = 5469592821) SPUN BODY FLUID Clear CLARITY (test code = 7781386420) Sediment (test code The sediment volume is = 8791744426) <0.1 mLs of the total fluid volume of 1mL and its color is red. GILBERTO (test code = Test developed and GILBERTO) characteristics determined by [facility] Laboratory Services. [facility]oTotal Protein Body [id number] 00:03:00 Test Item Value Reference Range Interpretation Comments T.PROT BF (test 3000.0 mg/dL code = 8567573942) UNSPUN BODY FLUID Yellow COLOR (test code = 4522422795) UNSPUN BODY FLUID Clear CLARITY (test code = 7259867844) SPUN BODY FLUID Yellow COLOR (test code = 1727101592) SPUN BODY FLUID Clear CLARITY (test code = 6660781140) Sediment (test code The sediment volume is = 5054477125) <0.1 mLs of the total fluid volume of 1mL and its color is red. GILBERTO (test code = Test developed and GILBERTO) characteristics determined by [facility] Laboratory Services. [facility]oPH, Body [id number] 23:56:00 Test Item Value Reference Range Interpretation Comments PH BF (test code = 2611894510) UNSPUN BODY FLUID COLOR Light Yellow (test code = 1066699347) UNSPUN BODY FLUID Clear CLARITY (test code = 1512103803) SPUN BODY FLUID COLOR Light Yellow (test code = 9886139362) SPUN BODY FLUID CLARITY Clear (test code = 8459030992) Sediment (test code = The sediment volume is 1837459337) 0.1 mLs of the total fluid volume of 5.5mLs and its color is white/red. [facility]oIR DRAINAGE BY CATHETER PERITONEAL OR [id number] 21:10:26 Successful placement of a 12 Ghanaian drain in the left upper quadrantcollection. Successful placement of a 14 Ghanaian drain in the midline air fluidcollection. Successful placement of a 10 Ghanaian drain in the right lower quadrant fluidcollection. [...] those actually performingthe procedure. Please refer to [facility] regarding sedation time. RADIATION DOSE: 1957 mGy - cm. TECHNIQUE: The risks, benefits and alternatives were discussed and informed consentwas obtained. Prior to beginning the procedure, [place] Protocol was usedto confirm the patient's identity and planned procedure. Maximum sterilebarriers including cap, mask, hand hygiene, sterile gloves, sterile gown,large sterile drape and cutaneous antisepsis were used. The anteriorabdominal wall was sterilely prepped, and draped. The skinoverlying the left upper, right upper, andright lower quadrants wasinfiltrated with lidocaine 2%. The targeted collection in the left upper quadrant was then accessed with z49-baijw quadrant needle using CT guidance. A 0.035 Amplatz wire wasadvanced through the coaxial needle. The tract was serially dilated to 12French. A pigtail 12 Ghanaian catheter was placed in the left upper quadrantcollection. Approximately, 210 cc of purulent fluid was removed. The air-fluid collection in the mid abdomen was accessed through the rightupper quadrant. An 18 Ghanaian pigtail catheter was placed in this collectionunder CT guidance in a similar fashion to thedrain and left upperquadrant. Approximately, 1250 cc of purulent material were removed. The fluid collection in the right lower quadrant was also accessed in asimilar fashion. A 10 Ghanaian pigtail catheter was placed in this collectionunder [...] aspirated at the time of the procedure. [facility], Radiant Results Inft User - 04/16/2020 4:11 PM CDTEXAMINATION: PERCUTANEOUS ASPIRATIONHISTORY: 50-year-old male with postoperative abdominal fluid collections SEDATION: Moderate sedation was administered under the supervision of atrained nurse specialist who was independent from those actually performingthe procedure. Please refer to [facility] regarding sedation time.RADIATION DOSE: 1957 mGy - cm.TECHNIQUE: The risks, benefits and alternatives were d iscussed and informed consentwas obtained. Prior to beginning the procedure, [place] Protocol was usedto confirm the patient's identity [...] serially dilated to 12French. A pigtail 12 Ghanaian catheter was placed in the left upper quadrantcollection. Approximately, 210 cc of purulent fluid was removed.The air-fluid collection in the mid abdomen was accessed through the rightupper quadrant. An 18 Ghanaian pigtail catheter was placed in this collectionunder CT guidance in a similar fa shion to the drain and left upperquadrant. Approximately, 1250 cc of purulent material were removed.The fluid collection in the right lower quadrant was also accessed in asimilar fashion. A 10 Ghanaian pigtail catheter was placed in this collectionunder [...] left upper quadrantcollection.Successful placement of a 14 Ghanaian drain in the midline air fluidcollection.Successful placement of a 10 Ghanaian drain in the right lower quadrant fluidcollection.Preliminary Report Dictated by Resident: Hayden Murphy the attending radiologist I was present in the room for the entirety ofthe procedure.I, Neris Grier MD., have reviewed this study and agree with the abovereport.[facility]oBODY FLUID CULTURE(AEROBIC/ANAEROBIC)2020-04-16 19:45:00 Test Item Value Reference Range Interpretation Comments BODY FLUID CULT 2+ Bacteroides fragillis (test code = 611-4) Gram stain (test Occasional (Rare) code = 664-3) Mononuclear cells [facility]aredoPROTHROMBIN TIME / [id number] 16:38:00 Test Item Value Reference Range Interpretation Comments PROTIME PATIENT (test See_Comment H [Auto mated message] code = 5964-2) The system Flinto generated this result transmitted ref erence range: 10.1 - 1 2.6 Seconds. The reference range was not used to int erpret this result as normal/abnormal . INR (test code = 6301-6) Nor mal INR <1.1; Warfarin Therap eutic range 2.0 to 3. 0 or 2.5 to 3.5, dep ending upon the indica tions. Lab Interpretation (test Abnormal code = 30863-4) [facility]oCT ABDOMEN PELVIS W [id number] 13:40:08Impression: 1. ?Interval placement of 4 percutaneous [...] degenerative changes and no suspicious focal lesions. [facility], Radiant Results Inft User - 04/16/2020 8:41 [...] and oral contrast seen up to the ostomy.[facility]oBASI METABOLIC PANEL (NA, K, CL, CO2, GLUCOSE, BUN, CREATININE, CA)2020-04-16 10:51:00 Test Item Value Reference Range Interpretation Comments NA (test code = 132 mmol/L 135-145 L 2287773728) K (test code = 4.1 mmol/L 3.5-5 0369109685) CL (test code = 103 mmol/L 98-108 3710248258) CO2 TOTAL (test code = 24 mmol/L 23-31 8688227176) AGAP (test code = 2-16 5066654591) BUN (test code = 13 mg/dL 7-23 3757362945) GLUCOSE (test code = 132 mg/dL 70-110 H 0007097084) CREATININE (test code = 0.77 mg/dL 0.6-1.25 4609015919) CALCIUM (test code = 7.4 mg/dL 8.6-10.6 L 9059895364) eGFR Calculation mL/min/1.73m2 (Non-) (test code = 5388012649) eGFR Calculation mL/min/1.73m2 () (test code = 2993829369) GILBERTO (test code = GILBERTO) Association of [...] tests). Lab Interpretation Abnormal (test code = 96865-8) [facility]oMAGNESIUM2020-08-24 10:51:00 Test Item Value Reference Range Interpretation Comments MAGNESIUM (test code = 0522694035) 2.2 mg/dL 1.7-2.4 Lab Interpretation (test code = Normal 79717-2) [facility]OSPHORUS2020-08-24 10:51:00 Test Item Value Reference Range Interpretation Comments PHOSPHORUS (test code = 3968526542) 3.1 mg/dL 2.5-5 Lab Interpretation (test code = Normal 77160-8) [facility] WITH [id number] 10:37:00 Test Item Value Reference Range Interpretation [...] RDW-SD (test code = 47.4 fL 38.5-51.6 22380-4) RDW-CV (test code = 14.7 % 12.1-15.4 788-0) PLT (test code = See_Comment H [Automated 777-3) message] The system which generated this result transmit dain reference range : 150 - 328 10*3/ ?L. The reference range was not u sed to interpret th is result as normal/abnormal . MPV (test code = 10.1 fL 9.8-13 28099-1) NRBC/100 WBC (test See_Comment [Automat ed code = 5901850586) message] The system which generated this result transmit dain reference range : 0.0 - 10.0 /100 WBCs. The reference range was not used to interpret this result as normal/abnormal . NRBC x10^3 (test code <0.01 See_Comment [Auto mated = 3517416362) message] The system which generated this result transmit dain reference range : 10*3/?L. The reference range was not used to interpret this result as normal/abnormal . GRAN MAT (NEUT) % 83.0 % (test code = 770-8) IMM GRAN % (test code 1.50 % = 8810855390) LYMPH % (test code = 7.6 % 736-9) MONO % (test code = 7.3 % 5905-5) EOS % (test code = 0.3 % 713-8) BASO % (test code = 0.3 % 706-2) GRAN MAT x10^3(ANC) 11.53 10*3/uL 1.99-6.95 H (test code = 2763835564) IMM GRAN x10^3 (test 0.21 10*3/uL 0-0.06 H code = 5503236774) LYMPH x10^3 (test code 1.05 10*3/uL 1.09-3.23 L = 731-0) MONO x10^3 (test code 1.01 10*3/uL 0.36-1.02 = 742-7) EOS x10^3 (test code = 0.04 10*3/uL 0.06-0.53 L 711-2) BASO x10^3 (test code 0.04 10*3/uL 0.01-0.09 = 704-7) Lab Interpretation Abnormal (test code = 13735-4) [facility] METABOLIC PANEL (NA, K, CL, CO2, GLUCOSE, BUN, CREATININE, CA)2020-04-15 11:01:00 Test Item Value Reference Range Interpretation Comments NA (test code = 132 mmol/L 135-145 L 3786082992) K (test code = 4.7 mmol/L 3.5-5 8307078838) CL (test code = 103 mmol/L 98-108 9389267196) CO2 TOTAL (test code = 22 mmol/L 23-31 L 6256877152) AGAP (test code = 2-16 9728015678) BUN (test code = 14 mg/dL 7-23 6391925257) GLUCOSE (test code = 114 mg/dL 70-110 H 7823281246) CREATININE (test code = 0.74 mg/dL 0.6-1.25 9481263561) CALCIUM (test code = 7.9 mg/dL 8.6-10.6 L 8324107072) eGFR Calculation mL/min/1.73m2 (Non-) (test code = 3764806937) eGFR Calculation mL/min/1.73m2 () (test code = 9533063006) GILBERTO (test code = GILBERTO) Association of [...] tests). Lab Interpretation Abnormal (test code = 92085-1) [facility]2020-08-23 11:01:00 Test Item Value Reference Range Interpretation Comments MAGNESIUM (test code = 2411345755) 2.1 mg/dL 1.7-2.4 Lab Interpretation (test code = Normal 09613-5) [facility]2020-08-23 11:01:00 Test Item Value Reference Range Interpretation Comments PHOSPHORUS (test code = 6709050175) 3.4 mg/dL 2.5-5 Lab Interpretation (test code = Normal 03266-3) [facility] WITH [id number] 10:46:00 Test Item Value Reference Range Interpretation [...] RDW-SD (test code = 47.7 fL 38.5-51.6 63359-4) RDW-CV (test code = 15.0 % 12.1-15.4 788-0) PLT (test code = See_Comment H [Automated 777-3) message] The system which generated this result transmit dain reference range : 150 - 328 10*3/ ?L. The reference range was not u sed to interpret th is result as normal/abnormal . MPV (test code = 10.4 fL 9.8-13 57294-2) NRBC/100 WBC (test See_Comment [Automat ed code = 9077592176) message] The system which generated this result transmit dain reference range : 0.0 - 10.0 /100 WBCs. The reference range was not used to interpret this result as normal/abnormal . NRBC x10^3 (test code <0.01 See_Comment [Auto mated = 8111203942) message] The system which generated this result transmit dain reference range : 10*3/?L. The reference range was not used to interpret this result as normal/abnormal . GRAN MAT (NEUT) % 85.0 % (test code = 770-8) IMM GRAN % (test code 1.10 % = 0943899739) LYMPH % (test code = 7.2 % 736-9) MONO % (test code = 6.4 % 5905-5) EOS % (test code = 0.1 % 713-8) BASO % (test code = 0.2 % 706-2) GRAN MAT x10^3(ANC) 14.87 10*3/uL 1.99-6.95 H (test code = 7073330580) IMM GRAN x10^3 (test 0.20 10*3/uL 0-0.06 H code = 7173760444) LYMPH x10^3 (test code 1.25 10*3/uL 1.09-3.23 = 731-0) MONO x10^3 (test code 1.11 10*3/uL 0.36-1.02 H = 742-7) EOS x10^3 (test code = <0.03 0.06-0.53 L 711-2) BASO x10^3 (test code 0.03 10*3/uL 0.01-0.09 = 704-7) Lab Interpretation Abnormal (test code = 26756-2) [facility] (NA, K, CL, CO2, GLUCOSE, BUN, CREATININE, CA)2020-04-14 12:15:00 Test Item Value Reference Range Interpretation Comments NA (test code = 134 mmol/L 135-145 L 1468143255) K (test code = 4.9 mmol/L 3.5-5 8258817174) CL (test code = 105 mmol/L 98-108 6842746452) CO2 TOTAL (test code = 23 mmol/L 23-31 9981118946) AGAP (test code = 2-16 6430203402) BUN (test code = 16 mg/dL 7-23 5061523361) GLUCOSE (test code = 102 mg/dL 70-110 1707261743) CREATININE (test code = 0.82 mg/dL 0.6-1.25 3391706733) CALCIUM (test code = 7.9 mg/dL 8.6-10.6 L 3049878364) eGFR Calculation mL/min/1.73m2 (Non-) (test code = 9376028271) eGFR Calculation mL/min/1.73m2 () (test code = 9482091780) GILBERTO (test code = GILBERTO) Association of [...] tests). Lab Interpretation Abnormal (test code = 53570-2) [facility]2020-08-22 12:15:00 Test Item Value Reference Range Interpretation Comments MAGNESIUM (test code = 0421027476) 2.1 mg/dL 1.7-2.4 Lab Interpretation (test code = Normal 70537-4) [facility]2020-08-22 12:15:00 Test Item Value Reference Range Interpretation Comments PHOSPHORUS (test code = 5457474798) 4.2 mg/dL 2.5-5 Lab Interpretation (test code = Normal 24159-7) [facility]oCB WITH [id number] 11:49:00 Test Item Value Reference Range Interpretation [...] RDW-SD (test code = 48.1 fL 38.5-51.6 47368-6) RDW-CV (test code = 15.1 % 12.1-15.4 788-0) PLT (test code = See_Comment H [Automated 777-3) message] The system which generated this result transmit dain reference range : 150 - 328 10*3/ ?L. The reference range was not u sed to interpret th is result as normal/abnormal . MPV (test code = 10.7 fL 9.8-13 13223-9) NRBC/100 WBC (test See_Comment [Automat ed code = 9479693578) message] The system which generated this result transmit dain reference range : 0.0 - 10.0 /100 WBCs. The reference range was not used to interpret this result as normal/abnormal . NRBC x10^3 (test code <0.01 See_Comment [Auto mated = 3867874730) message] The system which generated this result transmit dain reference range : 10*3/?L. The reference range was not used to interpret this result as normal/abnormal . GRAN MAT (NEUT) % 84.4 % (test code = 770-8) IMM GRAN % (test code 1.10 % = 8760053268) LYMPH % (test code = 7.4 % 736-9) MONO % (test code = 6.8 % 5905-5) EOS % (test code = 0.1 % 713-8) BASO % (test code = 0.2 % 706-2) GRAN MAT x10^3(ANC) 13.45 10*3/uL 1.99-6.95 H (test code = 9685240247) IMM GRAN x10^3 (test 0.18 10*3/uL 0-0.06 H code = 6036295074) LYMPH x10^3 (test code 1.18 10*3/uL 1.09-3.23 = 731-0) MONO x10^3 (test code 1.09 10*3/uL 0.36-1.02 H = 742-7) EOS x10^3 (test code = <0.03 0.06-0.53 L 711-2) BASO x10^3 (test code 0.03 10*3/uL 0.01-0.09 = 704-7) Lab Interpretation Abnormal (test code = 48126-1) [facility] TOTAL BODY [id number] 01:27:00 Test Item Value Reference Range Interpretation Comments LDH BF (test code = >6450 U/L 5486315793) UNSPUN BODY FLUID Yellow COLOR (test code = 8474196092) UNSPUN BODY FLUID Turbid CLARITY (test code = 9250771220) SPUN BODY FLUID Yellow COLOR (test code = 5999399922) SPUN BODY FLUID Clear CLARITY (test code = 5285734380) Sediment (test code The sediment volume is 0.1 = 3678565467) mLs of the total fluid volume of 5mLs and its color is Red/White. GILBERTO (test code = Test developed and GILBERTO) characteristics determined by [facility] Laboratory Services. [facility] (NA, K, CL, CO2, GLUCOSE, BUN, CREATININE, CA)2020-04-14 00:15:00 Test Item Value Reference Range Interpretation Comments NA (test code = 132 mmol/L 135-145 L 3199391540) K (test code = 5.3 mmol/L 3.5-5 H 0303886619) CL (test code = 105 mmol/L 98-108 9180697665) CO2 TOTAL (test code = 20 mmol/L 23-31 L 1328420680) AGAP (test code = 2-16 0800078773) BUN (test code = 14 mg/dL 7-23 5952148530) GLUCOSE (test code = 280 mg/dL 70-110 H 1033811608) CREATININE (test code = 0.75 mg/dL 0.6-1.25 4626873015) CALCIUM (test code = 7.4 mg/dL 8.6-10.6 L 3167510316) eGFR Calculation mL/min/1.73m2 (Non-) (test code = 0933405701) eGFR Calculation mL/min/1.73m2 () (test code = 3781704283) GILBERTO (test code = GILBERTO) Association of [...] tests). Lab Interpretation Abnormal (test code = 91275-5) [facility] WITHOUT [id number] 00:01:00 Test Item Value Reference Range Interpretation Comments WBC (test code = 6690-2) See_Comment H [A utomated message] The system Sticky generated this result transmit dain reference range : 4.20 - 10.70 10*3/?L. The reference range was not used to interpret this result as normal/abnormal . RBC (test code = 789-8) See_Comment L [Au tomated message] The system Sticky generated this result transmit dain reference range [...] See_Comment H [Au tomated message] The system Sticky generated this result transmit dain reference range : 150 - 328 10*3/?L. The reference range was not used to interpret this result as normal/abnormal . MPV (test code = 10.2 fL 9.8-13 83195-5) RDW-CV (test code = 15.3 % 12.1-15.4 788-0) RDW-SD (test code = 49.1 fL 38.5-51.6 57958-9) NRBC x10^3 (test code = <0.01 See_Comment [Au tomated message] 5099704707) The system Sticky generated this result transmit dain reference range : 10*3/?L. The reference range was not used to interpret this result as normal/abnormal . NRBC/100 WBC (test code See_Comment [Au tomated message] = 7577429879) The system [facility] generated this result transmit dain reference range : 0.0 - 10.0 /100 WBC s. The reference r meredith was not used to interpret this result as normal/abnormal . IPF % (test code = 2712438900) Lab Interpretation (test Abnormal code = 23874-8) [facility] DIRECT [id number] 23:40:00 Test Item Value Reference Range Interpretation Comments BF COLOR Yellow (test code = 5165632992) BF WBC Count See_Comment [Automated (test code = message] The sy stem 2268212236) which generated this result transmitted reference range : /?L. The refere nce range was not u sed to interpret th is result as normal/abnormal . BF RBC Count <3000 See_Comment [Automated (test code = message] The sy stem 6822304946) which generated this result transmitted reference range : /?L. The refere nce range was not u sed to interpret th is result as normal/abnormal . GILBERTO (test The reference range code = GILBERTO) and other method performance specifications have not been established for this body fluid. ?The test results must be integrated into the clinical context for interpretation. [facility] FLUID MANUAL [id number] 23:40:00 Test Item Value Reference Range Interpretation Comments BF SEGS (test code 99 % = 6233454474) BF LYMPHS (test 1 % code = 8010278895) #CELS CNTD (test code = 1329992082) GILBERTO (test code = Possible intracellular GILBERTO) bacteria. [facility]oGLUCOSE BODY [id number] 23:17:00 Test Item Value Reference Range Interpretation Comments GLUCOSE BF (test <20 mg/dL code = 4398403836) UNSPUN BODY FLUID Yellow COLOR (test code = 2245252091) UNSPUN BODY FLUID Turbid CLARITY (test code = 5836111808) SPUN BODY FLUID Yellow COLOR (test code = 2210510934) SPUN BODY FLUID Clear CLARITY (test code = 3522938979) Sediment (test code The sediment volume is 0.1 = 7095337816) mLs of the total fluid volume of 5mLs and its color is Red/White. GILBERTO (test code = Test developed and GILBETRO) characteristics determined by [facility] Laboratory Services. [facility].PROTEIN BODY [id number] 22:52:00 Test Item Value Reference Range Interpretation Comments T.PROT BF (test 3000.0 mg/dL code = 7042815048) UNSPUN BODY FLUID Yellow COLOR (test code = 3197504309) UNSPUN BODY FLUID Turbid CLARITY (test code = 0613159220) SPUN BODY FLUID Yellow COLOR (test code = 0868119813) SPUN BODY FLUID Clear CLARITY (test code = 3118978958) Sediment (test code The sediment volume is 0.1 = 6360368236) mLs of the total fluid volume of 5mLs and its color is Red/White. GILBERTO (test code = Test developed and GILBERTO) characteristics determined by [facility] Laboratory Services. [facility]INE [id number] 19:44:00 Test Item Value Reference Range Interpretation Comments URINE CULTURE (test No aerobic growth (< code = 630-4) 1000 CFU/mL) [facility] NEGATIVE BLOOD PATHOGENS DNA [id number] 13:23:00 Test Item Value Reference Range Interpretation Comments Enterobacter species Positive Negative A (test code = 81484-5) GILBERTO (test code = GILBERTO) See blood culture result for additional information. ?Testing included eight identification and six resistance marker targets. Lab Interpretation Abnormal (test code = 09637-3) [facility] WITH [id number] 12:43:00 Test Item Value Reference Range Interpretation Comments WBC (test code = See_Comment H [Automated 5990-2) message] The system which generated this result transmit dain reference range : 4.20 - 10.70 10*3/?L. The reference range was not used to interpret this result as normal/abnormal . RBC (test code = See_Comment L [Automated 959-8) message] The system which generated this result [...] RDW-SD (test code = 49.8 fL 38.5-51.6 73411-3) RDW-CV (test code = 15.3 % 12.1-15.4 788-0) PLT (test code = See_Comment H [Automated 777-3) message] The system which generated this result transmit dain reference range : 150 - 328 10*3/ ?L. The reference range was not u sed to interpret th is result as normal/abnormal . MPV (test code = 10.7 fL 9.8-13 20086-6) NRBC/100 WBC (test See_Comment [Automat ed code = 8090767525) message] The system which generated this result transmit dain reference range : 0.0 - 10.0 /100 WBCs. The reference range was not used to interpret this result as normal/abnormal . NRBC x10^3 (test code <0.01 See_Comment [Auto mated = 9021529444) message] The system which generated this result transmit dain reference range : 10*3/?L. The reference range was not used to interpret this result as normal/abnormal . GRAN MAT (NEUT) % 81.3 % (test code = 770-8) IMM GRAN % (test code 1.40 % = 1154577754) LYMPH % (test code = 8.0 % 736-9) MONO % (test code = 8.9 % 5905-5) EOS % (test code = 0.2 % 713-8) BASO % (test code = 0.2 % 706-2) GRAN MAT x10^3(ANC) 10.74 10*3/uL 1.99-6.95 H (test code = 2750920351) IMM GRAN x10^3 (test 0.18 10*3/uL 0-0.06 H code = 1164258184) LYMPH x10^3 (test code 1.06 10*3/uL 1.09-3.23 L = 731-0) MONO x10^3 (test code 1.17 10*3/uL 0.36-1.02 H = 742-7) EOS x10^3 (test code = <0.03 0.06-0.53 L 711-2) BASO x10^3 (test code <0.03 0.01-0.09 = 704-7) Lab Interpretation Abnormal (test code = 32835-3) [facility] METABOLIC PANEL (NA, K, CL, CO2, GLUCOSE, BUN, CREATININE, CA)2020-04-13 11:57:00 Test Item Value Reference Range Interpretation Comments NA (test code = 134 mmol/L 135-145 L 9030626285) K (test code = 4.6 mmol/L 3.5-5 5000479935) CL (test code = 106 mmol/L 98-108 2040416980) CO2 TOTAL (test code = 23 mmol/L 23-31 0909622292) AGAP (test code = 2-16 3881978796) BUN (test code = 14 mg/dL 7-23 4133321336) GLUCOSE (test code = 106 mg/dL 70-110 6384842276) CREATININE (test code = 0.84 mg/dL 0.6-1.25 8860844357) CALCIUM (test code = 7.7 mg/dL 8.6-10.6 L 2200892401) eGFR Calculation mL/min/1.73m2 (Non-) (test code = 6137606748) eGFR Calculation mL/min/1.73m2 () (test code = 5931737593) GILBERTO (test code = GILBERTO) Association of [...] tests). Lab Interpretation Abnormal (test code = 24251-9) [facility] Test Item Value Reference Range Interpretation Comments MAGNESIUM (test code = 4383490060) 2.1 mg/dL 1.7-2.4 Lab Interpretation (test code = Normal 82152-8) [facility] 11:57:00 Test Item Value Reference Range Interpretation Comments PHOSPHORUS (test code = 6738153081) 3.4 mg/dL 2.5-5 Lab Interpretation (test code = Normal 54841-8) [facility] [id number] 00:22:08 1. ?Multiple intraperitoneal collections as detailed [...] attempts 0 Preliminary Report Dictated by Resident: Sierra Costello I, Mathieu Chapa MD., have reviewed this study [...] this study and agree with the abovereport. [facility] 23:20:00 Test Item Value Reference Range Interpretation Comments APPEARANCE (test code = Clear Clear 0714867464) COLOR (test code = Yellow Yellow 3136524892) PH (test code = 4.8-8.0 8265433954) SP GRAVITY (test code = 1.003-1.030 2415235068) GLU U QUAL (test code = Normal Normal 9378260245) BLOOD (test code = Negative Negative 0089939430) KETONES (test code = Negative Negative 7152160347) PROTEIN (test code = 30 mg/dL Negative A 2887-8) UROBILIN (test code = Normal Normal 6944625139) BILIRUBIN (test code = Negative Negative 7299179932) NITRITE (test code = Negative Negative 7402747109) LEUK ROGER (test code = Negative Negative 9772971451) RBC/HPF (test code = See_Comment [Autom ated message] 3099475393) The system Sticky generated this result transmitted ref erence range: 0 - 3 HP F. The reference range was not used to int erpret this result as normal/abnormal . WBC/HPF (test code = <1 See_Comment [Autom ated message] 7239086173) The system Sticky generated this result transmitted ref erence range: 0 - 5 HP F. The reference range was not used to int erpret this result as normal/abnormal . BACTERIA (test code = Negative Negative 2255555533) MUCOUS (test code = Slight Negative LPF A 4385331152) SQ EPITH (test code = See_Comment [Auto mated message] 9885845972) The system [employer] generated this result transmitted ref erence range: <=2 HPF. The reference range was not used to int erpret this result as normal/abnormal . Lab Interpretation (test Abnormal code = 40108-8) [facility] WITH [id number] 12:08:00 Test Item Value Reference Range Interpretation [...] RDW-SD (test code = 48.9 fL 38.5-51.6 31953-6) RDW-CV (test code = 15.4 % 12.1-15.4 788-0) PLT (test code = See_Comment [Automated 777-3) message] The sy stem which generated this result transmitted reference range : 150 - 328 10*3/ ?L. The reference r meredith was not used to interpret this result as normal/abnormal . MPV (test code = 11.2 fL 9.8-13 20442-9) NRBC/100 WBC (test See_Comment [Automat ed code = 2891686557) message] The system which generated this result transmitted reference range : 0.0 - 10.0 /100 WBCs. The refer ence range was not u sed to interpret th is result as normal/abnormal . NRBC x10^3 (test code <0.01 See_Comment [Auto mated = 7892020379) message] The s ystem which generated this result transmitted reference range : 10*3/?L. The reference range was not used to interpret this result as normal/abnormal . GRAN MAT (NEUT) % 79.9 % (test code = 770-8) IMM GRAN % (test code 1.30 % = 5727767394) LYMPH % (test code = 7.4 % 736-9) MONO % (test code = 11.0 % 5905-5) EOS % (test code = 0.2 % 713-8) BASO % (test code = 0.2 % 706-2) GRAN MAT x10^3(ANC) 9.56 10*3/uL 1.99-6.95 H (test code = 8240326626) IMM GRAN x10^3 (test 0.15 10*3/uL 0-0.06 H code = 2230897935) LYMPH x10^3 (test code 0.89 10*3/uL 1.09-3.23 L = 731-0) MONO x10^3 (test code 1.32 10*3/uL 0.36-1.02 H = 742-7) EOS x10^3 (test code = <0.03 0.06-0.53 L 711-2) BASO x10^3 (test code <0.03 0.01-0.09 = 704-7) Lab Interpretation Abnormal (test code = 54012-0) [facility] (NA, K, CL, CO2, GLUCOSE, BUN, CREATININE, CA)2020-04-12 10:43:00 Test Item Value Reference Range Interpretation Comments NA (test code = 133 mmol/L 135-145 L 3315823864) K (test code = 4.3 mmol/L 3.5-5 7912900818) CL (test code = 104 mmol/L 98-108 8859958244) CO2 TOTAL (test code = 22 mmol/L 23-31 L 7000181324) AGAP (test code = 2-16 7082577399) BUN (test code = 20 mg/dL 7-23 3116069929) GLUCOSE (test code = 108 mg/dL 70-110 3560994499) CREATININE (test code = 0.77 mg/dL 0.6-1.25 6405551428) CALCIUM (test code = 8.1 mg/dL 8.6-10.6 L 7029974712) eGFR Calculation mL/min/1.73m2 (Non-) (test code = 2401241415) eGFR Calculation mL/min/1.73m2 () (test code = 5088848890) GILBERTO (test code = GILBERTO) Association of [...] tests). Lab Interpretation Abnormal (test code = 43863-9) [facility] 10:43:00 Test Item Value Reference Range Interpretation Comments MAGNESIUM (test code = 2168265165) 2.0 mg/dL 1.7-2.4 Lab Interpretation (test code = Normal 75014-4) [facility] 10:43:00 Test Item Value Reference Range Interpretation Comments PHOSPHORUS (test code = 3335711601) 4.3 mg/dL 2.5-5 Lab Interpretation (test code = Normal 12544-7) [facility] CULTURE [id number] 04:01:00 Test Item Value Reference Range Interpretation Comments Blood Culture-Aerobic No organisms No growth Previo us (test code = 24783-9) isolated prelim inary verified result was Culture [...] Culture-Anaerobic isolated preliminar y (test code = 33203-4) verifi ed result was Culture In Progress [...] CDT Lab Interpretation Normal (test code = 15545-9) [facility] CULTURE [id number] 04:01:00 Test Item Value Reference Range Interpretation Comments Blood Culture-Aerobic No organisms No growth Previo us (test code = 53737-0) isolated prelim inary verified result was Culture In Progress on 04/07/2020 at 02 01 CDTPrevious preliminary verified result was No growth a t 24 hours on 04/07/2020 at 23 01 CDTPrevious preliminary verified result was No growth a t 48 hours on 04/08/2020 at 23 CDTPrevious preliminary verified result was No growth a t 72 hours on 04/09/2020 at 23 01 CDT Blood No organisms No growth Previous Culture-Anaerobic isolated preliminar y (test code = 22284-8) verifi ed result was Culture In Progress on 04/07/2020 at 02 01 CDTPrevious preliminary verified result was No growth a t 24 hours on 04/07/2020 at 23 CDTPrevious preliminary verified result was No growth a t 48 hours on 04/08/2020 at 23 CDTPrevious preliminary verified result was No growth a t 72 hours on 04/09/2020 at 23 01 CDT Lab Interpretation Normal (test code = 96813-1) [facility] METABOLIC PANEL (NA, K, CL, CO2, GLUCOSE, BUN, CREATININE, CA)2020-04-11 10:13:00 Test Item Value Reference Range Interpretation Comments NA (test code = 138 mmol/L 135-145 7117293514) K (test code = 3.9 mmol/L 3.5-5 5059685382) CL (test code = 106 mmol/L 98-108 2816831823) CO2 TOTAL (test code = 27 mmol/L 23-31 3405980708) AGAP (test code = 2-16 4536029718) BUN (test code = 24 mg/dL 7-23 H 0779555413) GLUCOSE (test code = 97 mg/dL 70-110 5920691403) CREATININE (test code = 0.63 mg/dL 0.6-1.25 5676611204) CALCIUM (test code = 8.1 mg/dL 8.6-10.6 L 1603184174) eGFR Calculation mL/min/1.73m2 (Non-) (test code = 7069909063) eGFR Calculation mL/min/1.73m2 () (test code = 1504991409) GILBERTO (test code = GILBERTO) Association of [...] tests). Lab Interpretation Abnormal (test code = 81614-9) [facility] 10:13:00 Test Item Value Reference Range Interpretation Comments MAGNESIUM (test code = 7311530556) 1.8 mg/dL 1.7-2.4 Lab Interpretation (test code = Normal 17116-9) [facility] 10:13:00 Test Item Value Reference Range Interpretation Comments PHOSPHORUS (test code = 3251591790) 3.6 mg/dL 2.5-5 Lab Interpretation (test code = Normal 08319-9) [facility] WITH [id number] 10:06:00 Test Item Value Reference Range Interpretation [...] RDW-SD (test code = 48.9 fL 38.5-51.6 57427-8) RDW-CV (test code = 15.3 % 12.1-15.4 788-0) PLT (test code = See_Comment [Automated 777-3) message] The sy stem which generated this result transmitted reference range : 150 - 328 10*3/ ?L. The reference r meredith was not used to interpret this result as normal/abnormal . MPV (test code = 11.7 fL 9.8-13 63120-4) NRBC/100 WBC (test See_Comment [Automat ed code = 4553615790) message] The system which generated this result transmitted reference range : 0.0 - 10.0 /100 WBCs. The refer ence range was not u sed to interpret th is result as normal/abnormal . NRBC x10^3 (test code <0.01 See_Comment [Auto mated = 9292595691) message] The s ystem which generated this result transmitted reference range : 10*3/?L. The reference range was not used to interpret this result as normal/abnormal . GRAN MAT (NEUT) % 75.6 % (test code = 770-8) IMM GRAN % (test code 1.10 % = 8881663848) LYMPH % (test code = 10.5 % 736-9) MONO % (test code = 11.0 % 5905-5) EOS % (test code = 1.5 % 713-8) BASO % (test code = 0.3 % 706-2) GRAN MAT x10^3(ANC) 5.56 10*3/uL 1.99-6.95 (test code = 7575332138) IMM GRAN x10^3 (test 0.08 10*3/uL 0-0.06 H code = 4489968296) LYMPH x10^3 (test code 0.77 10*3/uL 1.09-3.23 L = 731-0) MONO x10^3 (test code 0.81 10*3/uL 0.36-1.02 = 742-7) EOS x10^3 (test code = 0.11 10*3/uL 0.06-0.53 711-2) BASO x10^3 (test code <0.03 0.01-0.09 = 704-7) TOXIC CHANGES (test Present A code = 803-7) Lab Interpretation Abnormal (test code = 76463-0) [facility] [id number] 22:00:00 Test Item Value Reference Range Interpretation Comments Case Report (test code Surgical Pathology ? ? = [id number]) ?Case: [id number] ? Authorizing Provider: ?Juventino Mccabe MD ? Collected: ? 04/06/2020 1012 ?Ordering Location: ? ? [facility] OR ? Received: ?04/06/2020 1146 ? Department ? Pathologist: ? Shaneka Douglas MD ? Specimen: ? ?SOFT TISSUE, OTHER, ileo rectal anastamosis ? Final Diagnosis (test o2zwtEFkQXZcu3zlLHFniP code = 2081872555) FuZzEwMzNcZnRuYmpcdWMx KFlcepKyCYjyw0HzX6BoSr AwMFxhbnNpXGRlZmxhbmcx VAYxIAU4ixXrHUXsXBvdIF ViVLrkPf8phPLbaNmeRkSs IOQld0ihucGZhkeenQu6k9 emKYEoVhT4iJTiLKstN4sp ygCfbYIcKHLlYVn7kB64YF CktM3hbQDvVIyyszIvNeO0 ZSwoGVAbFyR2SJVxlVFaZL KpB0psXOEtSYifSSUqFCfh mVBfTFM0gZeod5F6kRGcrO AmrAtoPuQwSbDxDTVIu0Cc YMf1jPjaI6WpEIWlYtI6hD QgUGFyYWdyYXBoIEZvbnQ7 tJ64MXcqniA2nORyx6Ymj3 0pw871qZ6acXUuGNU9ZNPr MPUvyVAuXLAvCGO3MYLizL LbK3ymQCvaWQ0zcjupXUI9 MFxtYXJndDcyMFxtYXJnYj JrjJRnRLCycFoxRBmnc522 SHQ5AfIvKO0hL7Szp5X3pA 9maXRcZGVmdGFiNzIwXGZv tj2nkHRsAUxqb2ZtOKH3at E5cZLvfPNyCJTaXS60Jboo u3GtPabiALS2DSRvszMwa4 Pxg5anFwPnqyJpI6icH4Hp ZHJoZWFkXHBnYnJkcmZvb3 Lgy3RnlOYewBd5i8bvJHAi ZKZtvWxrl6pvLSD7XDNiJ9 G5yLHgi8ocTPedUQDxqZL8 eeZhWCWfoUVeR0HzbG5vUW luBM7foam4t1nsGlTlLD4x qnhpo0qaXZtwLFHjMFN7Bl SzFCBgs2HdwltlUlOba2Dz uCNqKIwwV69gx208CBBnxx EjN8kzcMJyxpotmFXkgmag GLaasuC0MPIiZWRfDOqnZI YxXGZzMjBcbGFuZzEwMzNc aGljaFxmMVxkYmNoXGYxXG ctK0wcShSxPaGqMVbsSBDx FE1cT66TY75aMTnQJV1rIj WUPXTRNIHFUVQRJ99AE3aZ KTBWXSTeBHBBH40OHaXJYP NIZYZEX0JNJ398QKWodzHq MDGxMD1pDfMXOZLKFILPGI EJBALAHHJMTSBKRAEkH6mQ NHNWFxZGV37ZGwECWQsBPw zOZF4PXQmVDnozOXkOZGAZ CDgAGsouN5CKB1FZYZdGXJ FORFxwYXIgICAgICAgICBQ FTNWSS3YKORGA0qkMQBfVC IuNMTyXRSNV1PVRQrVXpEJ XWKCYZ5EQGHCEISALQLQRL VccGFyXHBhclxwbGFpblxm MVxmczIyXGxhbmcxMDMzXG iqL3zlWvJzBOAjhKonYFwf v5GhHVSpWYGhIuilesXjVC KsU5gwmNhpPWlvNVU3XR2q UI0BB2bNCRB1AqQ2VsJfJq HcFFG0IjXkNK2soZjxuH2k PiHoFsUuEEsoTE5kKJPpT5 nanBAcHNCbZFTjL3rnMcNb eS4mcKpvCOikjeJmNHUntL ZkCSMxtp29RDO2VrOkc9J4 GVZaAnPyPJThNM8geRpsQD QeHK3dXNHqP7njwU8dmkp2 XzToGEUvWoK6QMUqfqS8Za i7ZKWsITsrx3uyc1IpN2Fn tJFozKm4w1rgTBOgSbB7hY OlCHnhD8ctmyRiaIEcJTRl KMe5aIbqTfXiAWIha7idue BcZmNoYXJzZXQwIENhbGli btj5tY82XYDknM9vdDRlYD cnhkHwYeM6QNdvMMUbHgA5 FCPraNRfYHWzS4vvDBAvDO fcHKRhXLucqBZsBJD4sBrz v0T5gHXvqWTyfKplSwUjPz KfCZUXi3LbNRv5pZffE3Ce ADEzKeS4wHMvEPBhBKgdMT LxVJEsltW2aO06XSfthpQ6 cTWrm9Nxt76pp843cD7xqJ UyKJQ6HLOrLAFpkTWrZDCv LII8LCKflPLeX3drPYAiKU 9igeyfKSwyIOvxZHOnkHR4 XDJkxPQxB0FmJCMfCGljZD Sfxky8TeZqXp6zkLDpqWwo GPfcl0hym6rsoBEcLyu4GE RpQjRxLplhJPvrp9Gxb0pt GYUqbt6mGYY3nNVmuKwdw5 C8xUWgQCCeyYChrfGiDWQs TnI1MCpoRC4ehl85YCUpEF W4sg3hiNIieXgygcYjzFOv SQrbW0CjLJZah345KWPcO0 SsCIQte3M6unPjWlIpPJSp rOA4qcE4EYRlQDt4xDBcez M8fjJnzDDiN5mebE4jHGQo ZF9kydaod4ttDHiuEZilZM KvjNW0quT8GYRghDBwK5Oy fS8gMPNoWXukUGPjgah0Hq HbTa8whKVlgDdvJHbiWujx YWdlXHBnbmNvbnRccGduZG VjXHBsYWluXHBsYWluXGYw VAXnZkWssGqsqFytwM6vRc MqZuTpPJmhXP4fPXTsR2yh iTDfDVGtZQXxJ6asIkOxeH 9jaFxmMVxjZjJcZnMyMFxw YXIgSSBoYXZlIHBlcnNvbm BypXhvucN1vRM1SPFiNTvl LUNjOWJqbXSdwy3ncExuDA JgDZ6rXNSsrsFyHKlmzMgu LVrzACW9CGUrbVEbkTPlhC FkZSBieSByZXNpZGVudHMs EEZkeSkht8Gqq7XlgTJ6mM 8ou7awo4MnOVVyhXP6ZZ50 mjT3fN8yZPMjTU6qGLRgNN 3laYIddGToYMWds85vkRqd cyByZXBvcnQuXHBsYWluXG YyXGZzMjhcbGFuZzEwMzNc aGljaFxmMlxkYmNoXGYyXG tdU6zyUxXcSjXrWFlqISG1 fQ== Clinical Information Abdominal distention (test code = [R14.0] 2834393518) Gross Description (test r5fabKOaWCKoeKWdGgFrPV code = 1631187904) CzZDGdz0ccINHpxRYuBkBp MzNcZnRuYmpcdWMxXGRlZm Sfw4asa891vULhv7cuKSGk CvV4wQTsEWVjlZEwW502JY EjMZyrg3vio3DrQSMazPLq n3T3NDINtzeprEb8qDbjF1 2xi9V3GerlU4diHPMeSQuw KCTiZCamlMZpIBE8EJPvTR F5HCgsdhOzchQ5SWkfwLIs AkS3CIi0i5pnoDprXUHoSS N8b3gnZYjuydFlQR5ngg4x iHm8x0vjdaRkOVMrTKGmsN FSYYMyJ8NagTcrBr7ylZo3 lFugOukpJQR7Nnl4LK1wag 69kfd5bZaqYMNbuzywUwJ5 JPawHUBvoevdDKr6LTntGR MueIPqQSBkjYEyP7AoFCay VS6gwcu7KqKoTY3jwxszSG pkCHQdHYZ8NfGrYWWjy9El jmuaNaGvev9ifr05YYO9p7 RmsEtqTLT2REQ1CfOuUq9i jQJxNAXbWC1mIeMtzACcPJ Vcjq67xYyzIUjcxhOeyM1y JoDxOYDggYPsKWNrTE4lqH NoIPExnX4sepnuIVKtKmWd grjlWKAfeSkfyfJvRp2uuB yhGMQ4TUusP6jkgI4cAlU8 ZNciU7ncfT4aFUw6QJvcmS U1KCXpuG7oEL0cvweja1le TLE5UGngDFMttmN6yrVmIE KlyBUcU7NcaU09PnGtnXQa E0NqoS0dVLkuZLCwfjp1Gc KtDl9cqPWszMH2HYllJzat YWdlXHBnbmNvbnRccGduZG VjXHBsYWluXHBsYWluXGYw KVDiVkCpnVidsFmvqT0fAa BcZnMyMFxwbGFpblxmMFxm czIwIFNwZWNpbWVuIEEgcm OcZDa9YPLzWmZqa6lodPEm MOtnWXL0lTZoXXXnPLGaQO TsRW13K2GixkIwSZdmIOgp hwWnErJrTXAgc47jrRY1kV OzxBSsCJmpZCAxHDWnK5Ne pKCrimLwbR1fk9EkaoPuWG 0yMOKxakLdy6McQI7wXSWf g5QpoHKfuQLnNWPeh6BhoN ibffYuEwDqtI3xVQAaotKj w7lodKQmDQ41KFYlDLjyPT mmrle3jSYwijEqheNzE6sv OrEhwl5tDCWiMFngmGSddd rhVFxnnqAgHBK8RlNrORhp ZMQcsFgczP4jHwUzHhFwFG U3JvYaV36pVAlomYJ5ZZCx OLCpblPbr8GyhyOac0n7aX RxjXTcVDAhH7VemGVxggSw eE9oc3Unuj8xDYIAmESwg1 Hqb0HtpUMmXGSml2HxlYab seDeBR7yOJmiTK7pFJIjTM frwHGnss44NMTnZKLnwUdk YRFfBWZ7a10qh9vqJUJmyN UpOI2uGEO4lAXiutZdtZA3 eJDpVvTvMCtclIY5XYQyKE vkTNNAkSZcfFPdQt7pIIMz u01osBTdmI7kGSPmFIXyCq SxP21yCeIwiVQ8xPSipErf DNeqkTZvY3ruUBDcNPKxKg ElAkSbzYS7vZQqwsAtdHVr WK3zxaoguu5xUZpgUFS8jl wvZ4OfJG3yqxokitZkQBHf EK6uFG4rBXGwbnCyvVovBI RwJFDdlAGnCSmxEOgoJ8bi KPRhanJ4KGVtoS9xYMQtmC PcYl6kUHIpu55kz7h6KFT7 uLBwuK7zhRyyMSXwWAG2j6 5gs7olMCQ9YEKoGWHmrP4h MeUqVrAvNUxiYROgIB5oHZ YkBOEpsBNwf9NwpMAjxQ3z XXAtovDoanCqIPPhlVF3r7 UuVOHmzEVsq6DxUSD0mVVe IZBvyyAxEEPrYGBhKY7cxC XrFJQqcGAue5FviIM1bIYs JZTwL0Stv85vZQRwXYWiwK AfpTG8MLRsTHPvMHKbxTnx oV5rYpCnDsKbSBo0NWFmQM OqKap2RISiBPtjARBgMZNl MjAgQTQuXHBhclxwYXIgU2 MqlVswimMfo0UaRjddKVYk FYM8HKBXMKR5PRsby9AoX6 qxGKoaaWEnB7tmPCWiUNRj WIZhjjDjiYb2SVssJNDuOK N0KQDJoSMkcJEdtANnoIYu wHYwUCRkhJ0sGCQxqGSmu3 YzrOS1qQQkLZIjdjJCCjvy FQGdmqXblnI9zE4dEZXakE XelCTuLOF5SkDaOH5biiNv dDWgSMHdVEX3nZ4dPF6zJP JmFNlxHITuw3NmQPOiVGAo HZZmtrVksNn5NCccOTEwpH KbALZezhAijMfcaN5zTwBm ZnMyMFxwbGFpblxmMVxmcz MmPHNhqNxlJOQodBPeSJ1K YWxNBHNyq0epB2lwuEQEe4 Dhy3RryyPaKRKuMZefROEy XGZzMjBccGFyXHFsXHBsYW ssGQDmYRDpFoEmdAcftX1m ZjBcZnMyMFxwYXJccGFyfQ == Embedded Images (test code = 0698129908) [facility] WITH [id number] 11:29:00 Test Item Value Reference Range Interpretation Comments WBC (test code = See_Comment [Automated 9690-2) message] The sy stem which generated this result transmitted reference range : 4.20 - 10.70 10*3/?L. The reference range was not used to interpret this result as normal/abnormal . RBC (test code = See_Comment L [Automated 769-8) message] The sy stem which generated this [...] RDW-SD (test code = 48.8 fL 38.5-51.6 65328-0) RDW-CV (test code = 15.2 % 12.1-15.4 788-0) PLT (test code = See_Comment L [Automated 777-3) message] The sy stem which generated this result transmitted reference range : 150 - 328 10*3/ ?L. The reference r meredith was not used to interpret this result as normal/abnormal . MPV (test code = 11.6 fL 9.8-13 37455-3) NRBC/100 WBC (test See_Comment [Automat ed code = 6065072400) message] The system which generated this result transmitted reference range : 0.0 - 10.0 /100 WBCs. The refer ence range was not u sed to interpret th is result as normal/abnormal . NRBC x10^3 (test code <0.01 See_Comment [Auto mated = 3786994565) message] The s ystem which generated this result transmitted reference range : 10*3/?L. The reference range was not used to interpret this result as normal/abnormal . GRAN MAT (NEUT) % 79.1 % (test code = 770-8) IMM GRAN % (test code 0.50 % = 6183261021) LYMPH % (test code = 11.0 % 736-9) MONO % (test code = 7.8 % 5905-5) EOS % (test code = 1.4 % 713-8) BASO % (test code = 0.2 % 706-2) GRAN MAT x10^3(ANC) 4.67 10*3/uL 1.99-6.95 (test code = 1761999099) IMM GRAN x10^3 (test 0.03 10*3/uL 0-0.06 code = 0947762093) LYMPH x10^3 (test code 0.65 10*3/uL 1.09-3.23 L = 731-0) MONO x10^3 (test code 0.46 10*3/uL 0.36-1.02 = 742-7) EOS x10^3 (test code = 0.08 10*3/uL 0.06-0.53 711-2) BASO x10^3 (test code <0.03 0.01-0.09 = 704-7) Lab Interpretation Abnormal (test code = 58886-6) [facility] Test Item Value Reference Range Interpretation Comments MAGNESIUM (test code = 7355465349) 1.7 mg/dL 1.7-2.4 Lab Interpretation (test code = Normal 85410-1) [facility] Test Item Value Reference Range Interpretation Comments PHOSPHORUS (test code = 1625458992) 3.0 mg/dL 2.5-5 Lab Interpretation (test code = Normal 21118-7) [facility] [id number] 13:59:01 Interval extubation and removal of enteric [...] abnormality. [facility], Radiant Results Inft User - 04/09/2020 9:00 [...] Resident: Bart Klein reviewed this study and agree.I, Weston Wu MD., have reviewed this study and agree with theabove report.[id number] (ALB,T.PRO,BILI T,BU/BC,ALT,AST,ALK PHOS) 2020-04-09 11:52:00 Test Item Value Reference Range Interpretation Comments TOTAL BILI (test code = 2637125474) 1.2 mg/dL 0.1-1.1 H BILI UNCON (test code = 6351394198) 0.8 mg/dL 0.1-1.1 BILI CONJ (test code = 2294816844) 0.0 mg/dL 0-0.3 T PROTEIN (test code = 7837358493) 4.2 g/dL 6.3-8.2 L ALBUMIN (test code = 8074892402) 2.2 g/dL 3.5-5 L ALK PHOS (test code = 1281970240) 36 U/L 34-122 ALTv (test code = 1742-6) 13 U/L 5-50 AST(SGOT) (test code = 0378013561) 23 U/L 13-40 Lab Interpretation (test code = Abnormal 27883-4) [facility] WITH [id number] 10:01:00 Test Item Value Reference Range Interpretation Comments WBC (test code = See_Comment [Automated 2190-2) message] The sy stem which generated this result transmitted reference range : 4.20 - 10.70 10*3/?L. The reference range was not used to interpret this result as normal/abnormal . RBC (test code = See_Comment L [Automated 859-8) message] The sy stem which generated this [...] RDW-SD (test code = 47.6 fL 38.5-51.6 92504-9) RDW-CV (test code = 14.8 % 12.1-15.4 788-0) PLT (test code = See_Comment L [Automated 777-3) message] The sy stem which generated this result transmitted reference range : 150 - 328 10*3/ ?L. The reference r meredith was not used to interpret this result as normal/abnormal . MPV (test code = 11.6 fL 9.8-13 95035-8) NRBC/100 WBC (test See_Comment [Automat ed code = 8596999882) message] The system which generated this result transmitted reference range : 0.0 - 10.0 /100 WBCs. The refer ence range was not u sed to interpret th is result as normal/abnormal . NRBC x10^3 (test code <0.01 See_Comment [Auto mated = 5040581546) message] The s ystem which generated this result transmitted reference range : 10*3/?L. The reference range was not used to interpret this result as normal/abnormal . GRAN MAT (NEUT) % 87.5 % (test code = 770-8) IMM GRAN % (test code 0.90 % = 5113095586) LYMPH % (test code = 7.5 % 736-9) MONO % (test code = 3.4 % 5905-5) EOS % (test code = 0.5 % 713-8) BASO % (test code = 0.2 % 706-2) GRAN MAT x10^3(ANC) 5.12 10*3/uL 1.99-6.95 (test code = 1040331539) IMM GRAN x10^3 (test 0.05 10*3/uL 0-0.06 code = 5467249523) LYMPH x10^3 (test code 0.44 10*3/uL 1.09-3.23 L = 731-0) MONO x10^3 (test code 0.20 10*3/uL 0.36-1.02 L = 742-7) EOS x10^3 (test code = 0.03 10*3/uL 0.06-0.53 L 711-2) BASO x10^3 (test code <0.03 0.01-0.09 = 704-7) DOHLE BODIES (test Present A code = 7792-5) TOXIC CHANGES (test Present A code = 803-7) Lab Interpretation Abnormal (test code = 11578-1) [facility] METABOLIC PANEL (NA, K, CL, CO2, GLUCOSE, BUN, CREATININE, CA)2020-04-09 09:37:00 Test Item Value Reference Range Interpretation Comments NA (test code = 135 mmol/L 135-145 2077749609) K (test code = 3.6 mmol/L 3.5-5 4553313786) CL (test code = 105 mmol/L 98-108 3628644016) CO2 TOTAL (test code = 31 mmol/L 23-31 0827120169) AGAP (test code = <1 2-16 L 1668593949) BUN (test code = 28 mg/dL 7-23 H 6935355390) GLUCOSE (test code = 95 mg/dL 70-110 5930583745) CREATININE (test code = 0.78 mg/dL 0.6-1.25 5261214706) CALCIUM (test code = 8.1 mg/dL 8.6-10.6 L 2249218467) eGFR Calculation mL/min/1.73m2 (Non-) (test code = 5005068119) eGFR Calculation mL/min/1.73m2 () (test code = 1229288718) GILBERTO (test code = GILBERTO) Association of [...] tests). Lab Interpretation Abnormal (test code = 54150-6) [facility] 09:[facility]:00 Test Item Value Reference Range Interpretation Comments MAGNESIUM (test code = 3143842474) 1.8 mg/dL 1.7-2.4 Lab Interpretation (test code = Normal 89826-3) [facility] 09:36:00 Test Item Value Reference Range Interpretation Comments PHOSPHORUS (test code = 2253961744) 1.8 mg/dL 2.5-5 L Lab Interpretation (test code = Abnormal 60733-0) [facility] + LACTIC [id number] 21:18:00 Test Item Value Reference Range Interpretation Comments PH (test code = 2) 7.35-7.45 PCO2 (test code = See_Comment [Automate d 1491672578) message] The sy stem which generated this result transmitted reference range : 35 - 45 mmHg. The reference range was not used to interpret this result as normal/abnormal . PO2 (test code = See_Comment L [Automated 6709525584) message] The sy stem which generated this result transmitted reference range : 80 - 100 mmHg. The reference range was not used to interpret this result as normal/abnormal . HCO3 (test code = See_Comment [Automate d 5025869969) message] The sy stem which generated this result transmitted reference range : 22 - 26 mEq/L. The reference range was not used to interpret this result as normal/abnormal . BE (test code = See_Comment [Automated 8417123341) message] The sy stem which generated this result transmitted reference range : -3.0 - 3.0 mEq/ L. The reference r meredith was not used to interpret this result as normal/abnormal . THB (test code = 9.2 g/dL 13.5-18 L 8126514706) %O2HB (test code = 94.3 % 94-99 6044442572) %COHB ART (test code = 0.7 % 0-1.5 9922139386) %METHB ART (test code = 0.3 % 0.4-1.5 L 4648976960) VOL%O2 ART (test code = 12.3 % 15-23 L 6026492705) NA (test code = 135 mmol/L 135-145 5878682512) K+ (test code = 3.7 mmol/L 3.5-5 8976209580) AC CA IONZ (test code = 4.90 mg/dL 4.5-5.3 2822602801) GLUCOSE (test code = 94 mg/dL 70-110 1500702252) LACTIC ACID (test code 1.35 mmol/L = 0852957480) Lab Interpretation Abnormal (test code = 00238-6) [facility] GLUCOSE (AUTOMATED)2020-04-08 16:33:00 Test Item Value Reference Range Interpretation Comments POCT GLU (test code = 5561123922) 109 mg/dL 70-110 Lab Interpretation (test code = Normal 07339-2) [facility] GLUCOSE (AUTOMATED)2020-04-08 16:33:00 Test Item Value Reference Range Interpretation Comments POCT GLU (test code = 0608724816) 120 mg/dL 70-110 H Lab Interpretation (test code = Abnormal 89727-6) [facility] GLUCOSE (AUTOMATED)2020-04-08 16:33:00 Test Item Value Reference Range Interpretation Comments POCT GLU (test code = 3533413025) 93 mg/dL 70-110 Lab Interpretation (test code = Normal 72142-5) [facility] GLUCOSE (AUTOMATED)2020-04-08 12:46:00 Test Item Value Reference Range Interpretation Comments POCT GLU (test code = 2614288336) 109 mg/dL 70-110 Lab Interpretation (test code = Normal 16168-7) [facility] WITH [id number] 10:21:00 Test Item Value Reference Range Interpretation [...] RDW-SD (test code = 48.4 fL 38.5-51.6 92101-6) RDW-CV (test code = 15.0 % 12.1-15.4 788-0) PLT (test code = See_Comment L [Automated 777-3) message] The system which generated this result transmitted reference range : 150 - 328 10*3/?L. The reference range was not used to interpret this result as normal/abnormal . MPV (test code = 11.4 fL 9.8-13 15229-4) NRBC/100 WBC (test See_Comment [Automat ed code = 3285511399) message] The system which generated this result transmitted reference range : 0.0 - 10.0 /100 WBCs. The reference range was not used to interpret this result as normal/abnormal . NRBC x10^3 (test code <0.01 See_Comment [Auto mated = 3551630586) message] The system which generated this result transmitted reference range : 10*3/?L. The reference range was not used to interpret this result as normal/abnormal . GRAN MAT (NEUT) % 84.9 % (test code = 770-8) IMM GRAN % (test code 0.80 % = 5944059333) LYMPH % (test code = 7.9 % 736-9) MONO % (test code = 5.3 % 5905-5) EOS % (test code = 0.3 % 713-8) BASO % (test code = 0.8 % 706-2) GRAN MAT x10^3(ANC) 3.34 10*3/uL 1.99-6.95 (test code = 1836311444) IMM GRAN x10^3 (test 0.03 10*3/uL 0-0.06 code = 9218757870) LYMPH x10^3 (test 0.31 10*3/uL 1.09-3.23 L [...] BANDS (test code = MARKED INCREASED A 3550334934) DOHLE BODIES (test Present A code = 7792-5) TOXIC CHANGES (test Present A code = 803-7) Lab Interpretation Abnormal (test code = 98639-9) [facility] METABOLIC PANEL (NA, K, CL, CO2, GLUCOSE, BUN, CREATININE, CA)2020-04-08 10:02:00 Test Item Value Reference Range Interpretation Comments NA (test code = 138 mmol/L 135-145 0226597620) K (test code = 4.1 mmol/L 3.5-5 3122279876) CL (test code = 109 mmol/L 98-108 H 1487248903) CO2 TOTAL (test code = 25 mmol/L 23-31 7718699303) AGAP (test code = 2-16 8081454493) BUN (test code = 26 mg/dL 7-23 H 9309483506) GLUCOSE (test code = 103 mg/dL 70-110 3577855800) CREATININE (test code = 0.90 mg/dL 0.6-1.25 5825639955) CALCIUM (test code = 8.4 mg/dL 8.6-10.6 L 0412333632) eGFR Calculation mL/min/1.73m2 (Non-) (test code = 9557665994) eGFR Calculation mL/min/1.73m2 () (test code = 6924612689) GILBERTO (test code = GILBERTO) Association of [...] tests). Lab Interpretation Abnormal (test code = 84328-3) [facility] Test Item Value Reference Range Interpretation Comments MAGNESIUM (test code = 0485381448) 2.6 mg/dL 1.7-2.4 H Lab Interpretation (test code = Abnormal 27415-9) [facility] [id number] 09:43:00 Test Item Value Reference Range Interpretation Comments PH (test code = 7.32-7.42 2732108821) PCO2 PANKAJ (test code = See_Comment [Auto mated 2649011045) message] The sy stem which generated this result transmitted reference range : 41 - 51 mmHg. The reference range was not used to interpret this result as normal/abnormal . PO2 PANKAJ (test code = See_Comment [Autom ated 1455648006) message] The sy stem which generated this result transmitted reference range : 25 - 40 mmHg. The reference range was not used to interpret this result as normal/abnormal . HCO3 PANKAJ (test code = See_Comment [Auto mated 8136036267) message] The sy stem which generated this result transmitted reference range : 24 - 28 mEq/L. The reference range was not used to interpret this result as normal/abnormal . AC VBE(BEAKER) (test mEq/L code = 6769099759) THB PANKAJ (test code = 11.4 g/dL 13.5-18 L 0941945174) %O2HB PANKAJ (test code = 64.9 % 52-63 H 7087160402) %COHB PANKAJ (test code = 1.0 % 0-1.5 4312616524) %METHB PANKAJ (test code = 0.3 % 0.4-1.5 L 1508184569) VOL%O2 PANKAJ (test code = 10.4 % 6-12 1868605400) NA (test code = 138 mmol/L 135-145 0422831695) K+ (test code = 4.1 mmol/L 3.5-5 5243536740) AC CA IONZ (test code = 4.90 mg/dL 4.5-5.3 5929615436) GLUCOSE (test code = 98 mg/dL 70-110 7442470770) LACTIC ACID (test code 1.90 mmol/L = 4342136902) Lab Interpretation Abnormal (test code = 22180-2) [facility] 04:25:00 Test Item Value Reference Range Interpretation Comments POCT GLU (test code = 3809032624) 106 mg/dL 70-110 Lab Interpretation (test code = Normal 62763-4) [facility] [id number] 22:55:21Impression: Stable findings with no new changes.Exam: [...] unchanged.IMPRESSIONIm pression: Stable findings with no new changes.[facility] MRSA / MSSA Screen by Estefanía [id number] 19:28:00 Test Item Value Reference Range Interpretation Comments MSSA Screen by Estefanía VIEIRA (test code Negative Negative = 93317-8) MRSA/MSSA Positive? (test code = No No 6263180204) Lab Interpretation (test code = Normal 42532-7) [facility]2020-[facility]-07 17:01:00 Test Item Value Reference Range Interpretation Comments POCT GLU (test code = 5074002194) 95 mg/dL 70-110 Lab Interpretation (test code = Normal 93558-1) [facility] LACTIC [id number] 14:15:00 Test Item Value Reference Range Interpretation Comments PH (test code = 2) 7.35-7.45 L PCO2 (test code = See_Comment [Automate d 4956497119) message] The Comprimato stem which generated this result transmitted reference range : 35 - 45 mmHg. The reference range was not used to interpret this result as normal/abnormal . PO2 (test code = See_Comment H [Automated 3576002259) message] The sy stem which generated this result transmitted reference range : 80 - 100 mmHg. The reference range was not used to interpret this result as normal/abnormal . HCO3 (test code = See_Comment L [Automate d 9974397846) message] The sy stem which generated this result transmitted reference range : 22 - 26 mEq/L. The reference range was not used to interpret this result as normal/abnormal . BE (test code = See_Comment L [Automated 3033137411) message] The sy stem which generated this result transmitted reference range : -3.0 - 3.0 mEq/ L. The reference r meredith was not used to interpret this result as normal/abnormal . THB (test code = 9.6 g/dL 13.5-18 L 5462536750) %O2HB (test code = 98.6 % 94-99 1561066862) %COHB ART (test code = 0.3 % 0-1.5 3991231095) %METHB ART (test code = 0.0 % 0.4-1.5 L 7809583304) VOL%O2 ART (test code = NA 7532460355) NA (test code = 131 mmol/L 135-145 L 9057497014) K+ (test code = 4.3 mmol/L 3.5-5 5136359002) AC CA IONZ (test code = 4.60 mg/dL 4.5-5.3 3844336061) GLUCOSE (test code = 147 mg/dL 70-110 H 7756517230) LACTIC ACID (test code 3.12 mmol/L 0.5-2.2 H = 5725513303) Lab Interpretation Abnormal (test code = 43792-2) [facility] Whole [id number] 14:00:00 Test Item Value Reference Range Interpretation Comments LACTIC ACID (test code = 3.12 mmol/L 4897767809) [facility] GLUCOSE (AUTOMATED)2020-04-07 12:53:00 Test Item Value Reference Range Interpretation Comments POCT GLU (test code = 3324338587) 140 mg/dL 70-110 H Lab Interpretation (test code = Abnormal 25321-5) [facility] LACTIC [id number] 12:01:00 Test Item Value Reference Range Interpretation Comments PH (test code = 2) 7.35-7.45 L PCO2 (test code = See_Comment L [Automate d 8648249883) message] The sy stem which generated this result transmitted reference range : 35 - 45 mmHg. The reference range was not used to interpret this result as normal/abnormal . PO2 (test code = See_Comment H [Automated 7695465117) message] The sy stem which generated this result transmitted reference range : 80 - 100 mmHg. The reference range was not used to interpret this result as normal/abnormal . HCO3 (test code = See_Comment L [Automate d 4496447035) message] The sy stem which generated this result transmitted reference range : 22 - 26 mEq/L. The reference range was not used to interpret this result as normal/abnormal . BE (test code = See_Comment L [Automated 4993884507) message] The sy stem which generated this result transmitted reference range : -3.0 - 3.0 mEq/ L. The reference r meredith was not used to interpret this result as normal/abnormal . THB (test code = 10.8 g/dL 13.5-18 L 8206221556) %O2HB (test code = 98.8 % 94-99 0401694471) %COHB ART (test code = 0.3 % 0-1.5 5919071640) %METHB ART (test code = 0.0 % 0.4-1.5 L 7339508146) VOL%O2 ART (test code = 15.4 % 15-23 6945596963) NA (test code = 126 mmol/L 135-145 L 3206303572) K+ (test code = 4.3 mmol/L 3.5-5 8318796251) AC CA IONZ (test code = 4.70 mg/dL 4.5-5.3 9937508058) GLUCOSE (test code = 144 mg/dL 70-110 H 7004383257) LACTIC ACID (test code 2.79 mmol/L = 1508654393) Lab Interpretation Abnormal (test code = 46036-3) [facility] [id number] 11:44:00 Test Item Value Reference Range Interpretation Comments URINE CULTURE (test No aerobic growth (< code = 630-4) 1000 CFU/mL) [facility] WITH [id number] 09:53:00 Test Item Value Reference Range Interpretation [...] RDW-SD (test code = 48.8 fL 38.5-51.6 20631-2) RDW-CV (test code = 15.0 % 12.1-15.4 788-0) PLT (test code = See_Comment L [Automated 777-3) message] The sy stem which generated this result transmitted reference range : 150 - 328 10*3/ ?L. The reference r meredith was not used to interpret this result as normal/abnormal . MPV (test code = 11.8 fL 9.8-13 56051-9) IPF % (test code = 6.5 % 1.2-10.7 Platelet count 0119033504) measured by fluorescence method. NRBC/100 WBC (test See_Comment [Automat ed code = 3487141199) message] The system which generated this result transmitted reference range : 0.0 - 10.0 /100 WBCs. The refer ence range was not u sed to interpret th is result as normal/abnormal . NRBC x10^3 (test code <0.01 See_Comment [Auto mated = 9049146741) message] The s ystem which generated this result transmitted reference range : 10*3/?L. The reference range was not used to interpret this result as normal/abnormal . SEG % (test code = 20 % 33-76 L 54610-8) BAND % (test code = 45 % 0-1 H 88742-9) META % (test code = 9 % See_Comment H [Automa dain 41668-9) message] The sy stem which generated this result transmitted reference range : <=0. The refere nce range was not u sed to interpret th is result as normal/abnormal . MYELO % (test code = 1 % See_Comment H [Autom ated 33330-7) message] The sy stem which generated this result transmitted reference range : <=0. The refere nce range was not u sed to interpret th is result as normal/abnormal . LYMPH % (test code = 20 % 14-54 40784-2) MONO % (test code = 5 % 0-4 H 99039-1) ANC (test code = 1.40 10*3/uL 1.99-6.95 L 5704316990) GOLDEN CELLS (test code 2+ See_Comment A [...] 803-7) Lab Interpretation Abnormal (test code = 54877-7) [facility] METABOLIC PANEL (NA, K, CL, CO2, GLUCOSE, BUN, CREATININE, CA)2020-04-07 09:21:00 Test Item Value Reference Range Interpretation Comments NA (test code = 137 mmol/L 135-145 6969576160) K (test code = 4.6 mmol/L 3.5-5 1398229190) CL (test code = 110 mmol/L 98-108 H 2277564213) CO2 TOTAL (test code = 17 mmol/L 23-31 L 9165214050) AGAP (test code = 2-16 3019724139) BUN (test code = 24 mg/dL 7-23 H 6083885685) GLUCOSE (test code = 132 mg/dL 70-110 H 0492955584) CREATININE (test code = 1.23 mg/dL 0.6-1.25 6275131797) CALCIUM (test code = 8.0 mg/dL 8.6-10.6 L 9664078145) eGFR Calculation mL/min/1.73m2 (Non-) (test code = 6863695871) eGFR Calculation mL/min/1.73m2 () (test code = 9407802496) GILBERTO (test code = GILBERTO) Association of [...] tests). Lab Interpretation Abnormal (test code = 56900-8) [facility] 09:19:00 Test Item Value Reference Range Interpretation Comments MAGNESIUM (test code = 4099129799) 2.9 mg/dL 1.7-2.4 H Lab Interpretation (test code = Abnormal 55750-3) [facility]2020-[facility]-07 04:37:00 Test Item Value Reference Range Interpretation Comments POCT GLU (test code = 1465038431) 111 mg/dL 70-110 H Lab Interpretation (test code = Abnormal 35014-9) [facility] [id number] 02:35:00 Test Item Value Reference Range Interpretation Comments HCV Ab (test code = 65347-1) Negative HCV Semi-Quantitative (test code = 64255-8) [facility] + LACTIC [id number] 02:15:00 Test Item Value Reference Range Interpretation Comments PH (test code = 7.32-7.42 L 7087586596) PCO2 PANKAJ (test code = See_Comment L [Auto mated 6573519881) message] The sy stem which generated this result transmitted reference range : 41 - 51 mmHg. The reference range was not used to interpret this result as normal/abnormal . PO2 PANKAJ (test code = See_Comment HH [Autom ated 7069891804) message] The sy stem which generated this result transmitted reference range : 25 - 40 mmHg. The reference range was not used to interpret this result as normal/abnormal . HCO3 PANKAJ (test code = See_Comment L [Auto mated 5736363346) message] The sy stem which generated this result transmitted reference range : 24 - 28 mEq/L. The reference range was not used to interpret this result as normal/abnormal . AC VBE(BEAKER) (test mEq/L code = 1739281329) THB PANKAJ (test code = 11.2 g/dL 13.5-18 L 6703105173) %O2HB PANKAJ (test code = 98.7 % 52-63 H 3250487713) %COHB PANKAJ (test code = 0.3 % 0-1.5 8270840163) %METHB PANKAJ (test code = 0.1 % 0.4-1.5 L 3553102294) VOL%O2 PANKAJ (test code = 15.9 % 6-12 H 7874623299) NA (test code = 136 mmol/L 135-145 1031381605) K+ (test code = 4.2 mmol/L 3.5-5 2191729395) AC CA IONZ (test code = 4.60 mg/dL 4.5-5.3 6350052006) GLUCOSE (test code = 108 mg/dL 70-110 7211284805) LACTIC ACID (test code 2.37 mmol/L = 2449780026) Lab Interpretation Abnormal (test code = 61214-4) [facility]+NA+K+GLU+CA2+2020-04-07 01:54:00 Test Item Value Reference Range Interpretation Comments PH (test code = 2) 7.35-7.45 LL PCO2 (test code = See_Comment [Automate d message] 3805684380) The system St[employer] generated this result transmit dain reference range : 35 - 45 mmHg. The reference range was not used to interpret this result as normal/abnormal . PO2 (test code = See_Comment H [Automated message] 7468469504) The system [employer] generated this result transmit dain reference range : 80 - 100 mmHg. The reference range was not used to interpret this result as normal/abnormal . HCO3 (test code = See_Comment L [Automate d message] 6386456182) The system [employer] generated this result transmit dain reference range : 22 - 26 mEq/L. The reference range was not used to interpret this result as normal/abnormal . BE (test code = See_Comment L [Automated message] 9457449451) The system Sticky generated this result transmit dain reference range : -3.0 - 3.0 mEq/ L. The reference r meredith was not used to interpret this result as normal/abnormal . THB (test code = 10.6 g/dL 13.5-18 L 0859334658) %O2HB (test code = 99.0 % 94-99 6732214079) %COHB ART (test code = 0.3 % 0-1.5 8652321963) %METHB ART (test code = 0.3 % 0.4-1.5 L 7948476071) VOL%O2 ART (test code = 15.3 % 15-23 5744480413) NA (test code = 136 mmol/L 135-145 2706301900) K+ (test code = 3.1 mmol/L 3.5-5 L 5683838004) AC CA IONZ (test code = 4.30 mg/dL 4.5-5.3 L 4134226839) GLUCOSE (test code = 113 mg/dL 70-110 H 5679932689) Lab Interpretation Abnormal (test code = 83468-7) [facility]+NA+K+GLU+CA2+2020-04-07 01:53:00 Test Item Value Reference Range Interpretation Comments PH (test code = 2) 7.35-7.45 PCO2 (test code = See_Comment L [Automate d message] 6304319126) The system Sticky generated this result transmit dain reference range : 35 - 45 mmHg. The reference range was not used to interpret this result as normal/abnormal . PO2 (test code = See_Comment H [Automated message] 5645412634) The system Sticky generated this result transmit dain reference range : 80 - 100 mmHg. The reference range was not used to interpret this result as normal/abnormal . HCO3 (test code = See_Comment L [Automate d message] 2044205474) The system Sticky generated this result transmit dain reference range : 22 - 26 mEq/L. The reference range was not used to interpret this result as normal/abnormal . BE (test code = See_Comment L [Automated message] 4428600025) The system Sticky generated this result transmit dain reference range : -3.0 - 3.0 mEq/ L. The reference r meredith was not used to interpret this result as normal/abnormal . THB (test code = 13.1 g/dL 13.5-18 L 3128973106) %O2HB (test code = 98.9 % 94-99 5360308269) %COHB ART (test code = 0.1 % 0-1.5 7788945105) %METHB ART (test code = 0.6 % 0.4-1.5 9935416921) VOL%O2 ART (test code = 19.3 % 15-23 8933691669) NA (test code = 132 mmol/L 135-145 L 2889288865) K+ (test code = 4.2 mmol/L 3.5-5 4803875829) AC CA IONZ (test code = 4.60 mg/dL 4.5-5.3 9404358438) GLUCOSE (test code = 99 mg/dL 70-110 3181721757) Lab Interpretation Abnormal (test code = 01138-6) [facility] WITH [id number] 01:29:00 Test Item Value Reference Range Interpretation Comments HIV Negative Negative Semi-quantitative (test code = 44010-2) GILBERTO (test code = Non-reactive for HIV-1 GILBERTO) antigen and HIV-1/HIV-2 antibodies. ?No laboratory evidence of HIV infection. ?Repeat in 2-4 weeks if acute HIV infection is suspected. [facility] GLUCOSE (AUTOMATED)2020-04-07 00:40:00 Test Item Value Reference Range Interpretation Comments POCT GLU (test code = 7754125809) 100 mg/dL 70-110 Lab Interpretation (test code = Normal 01620-7) [facility] GLUCOSE (AUTOMATED)2020-04-07 00:06:00 Test Item Value Reference Range Interpretation Comments POCT GLU (test code = 6240978257) 116 mg/dL 70-110 H Lab Interpretation (test code = Abnormal 14075-0) [facility] GLUCOSE (AUTOMATED)2020-04-06 22:48:00 Test Item Value Reference Range Interpretation Comments POCT GLU (test code = 7128335891) 94 mg/dL 70-110 Lab Interpretation (test code = Normal 97667-5) [facility] [id number] 21:06:45 1. Interval placement of right internal [...] lower lung atelectasis.Preliminary Report Dictated by Resident: Ankush Castillo MD., have reviewed this study and agree with the abovereport.[facility] WITH [id number] 20:15:00 Test Item Value Reference Range Interpretation Comments WBC (test code = See_Comment LL [Automated 5690-2) message] The sy stem which generated this result transmitted reference range : 4.20 - 10.70 10*3/?L. The reference range was not used to interpret this result as normal/abnormal . RBC (test code = See_Comment L [Automated 639-8) message] The sy stem which generated this [...] RDW-SD (test code = 49.2 fL 38.5-51.6 89090-0) RDW-CV (test code = 14.7 % 12.1-15.4 788-0) PLT (test code = See_Comment L [Automated 777-3) message] The sy stem which generated this result transmitted reference range : 150 - 328 10*3/ ?L. The reference r meredith was not used to interpret this result as normal/abnormal . MPV (test code = 12.1 fL 9.8-13 16731-5) NRBC/100 WBC (test See_Comment [Automat ed code = 9987765193) message] The system which generated this result transmitted reference range : 0.0 - 10.0 /100 WBCs. The refer ence range was not u sed to interpret th is result as normal/abnormal . NRBC x10^3 (test code <0.01 See_Comment [Auto mated = 9548327059) message] The s ystem which generated this result transmitted reference range : 10*3/?L. The reference range was not used to interpret this result as normal/abnormal . SEG % (test code = 38 % 33-76 87726-6) BAND % (test code = 28 % 0-1 H 25816-8) META % (test code = 4 % See_Comment H [Automa dain 93889-9) message] The sy stem which generated this result transmitted reference range : <=0. The refere nce range was not u sed to interpret th is result as normal/abnormal . MYELO % (test code = 6 % See_Comment H [Autom ated 85495-2) message] The sy stem which generated this result transmitted reference range : <=0. The refere nce range was not u sed to interpret th is result as normal/abnormal . LYMPH % (test code = 16 % 14-54 94271-1) MONO % (test code = 8 % 0-4 H 27962-1) ANC (test code = 0.40 10*3/uL 1.99-6.95 L 3004513138) GOLDEN CELLS (test code 3+ See_Comment A [Auto mated = 9790-9) message] The sy stem which generated this result transmitted reference range : (none). The reference range was not used to interpret this result as normal/abnormal . DOHLE BODIES (test Present A code = 7792-5) Lab Interpretation Abnormal (test code = 06296-6) [facility] 19:[facility]00 Test Item Value Reference Range Interpretation Comments APTT Patient (test code See_Comment H [Au tomated message] = 3173-2) The system [employer] h generated this result transmitted ref erence range: 26 - 36 Seconds. The reference range was not used to int erpret this result as normal/abnormal . Lab Interpretation (test Abnormal code = 40862-8) [facility]OM[facility] / [id number] 19:55:00 Test Item Value Reference Range Interpretation Comments PROTIME PATIENT (test See_Comment H [Auto mated message] code = 5964-2) The system [employer] ich generated this result transmitted ref erence range: 10.1 - 1 2.6 Seconds. The reference range was not used to int erpret this result as normal/abnormal . INR (test code = 6301-6) Nor mal INR <1.1; Warfarin Therap eutic range 2.0 to 3. 0 or 2.5 to 3.5, dep ending upon the indica tions. Lab Interpretation (test Abnormal code = 41730-2) [facility] MET[facility]OL[facility] PAN[facility] (29464)2020-04-06 19:50:00 Test Item Value Reference Range Interpretation Comments NA (test code = 137 mmol/L 135-145 5948465914) K (test code = 3.6 mmol/L 3.5-5 5019803229) CL (test code = 109 mmol/L 98-108 H 1593163394) CO2 TOTAL (test code = 18 mmol/L 23-31 L 5422733032) AGAP (test code = 2-16 2767703311) BUN (test code = 27 mg/dL 7-23 H 4065973351) GLUCOSE (test code = 91 mg/dL 70-110 5698015437) CREATININE (test code = 1.38 mg/dL 0.6-1.25 H 1828002300) TOTAL BILI (test code = 1.0 mg/dL 0.1-1.6 6672808564) CALCIUM (test code = 8.0 mg/dL 8.6-10.6 L 4517512213) T PROTEIN (test code = 4.3 g/dL 6.3-8.2 L 7495860871) ALBUMIN (test code = 2.7 g/dL 3.5-5 L 3914492396) ALK PHOS (test code = <20 34-122 L 0832043623) ALTv (test code = 9 U/L 5-50 1742-6) AST(SGOT) (test code = 21 U/L 13-40 9582954141) eGFR Calculation mL/min/1.73m2 (Non-) (test code = 4378273952) eGFR Calculation mL/min/1.73m2 () (test code = 1920057401) GILBERTO (test code = GILBERTO) Association of [...] tests). Lab Interpretation Abnormal (test code = 48450-8) [facility] METABOLIC PANEL (NA, K, CL, CO2, GLUCOSE, BUN, CREATININE, CA)2020-04-06 19:50:00 Test Item Value Reference Range Interpretation Comments NA (test code = 137 mmol/L 135-145 8505236104) K (test code = 3.6 mmol/L 3.5-5 7582125885) CL (test code = 109 mmol/L 98-108 H 7606548462) CO2 TOTAL (test code = 18 mmol/L 23-31 L 0346152658) AGAP (test code = 2-16 4413574226) BUN (test code = 27 mg/dL 7-23 H 5476239429) GLUCOSE (test code = 91 mg/dL 70-110 9269500270) CREATININE (test code = 1.38 mg/dL 0.6-1.25 H 1082841320) CALCIUM (test code = 8.0 mg/dL 8.6-10.6 L 7500966623) eGFR Calculation mL/min/1.73m2 (Non-) (test code = 5704808428) eGFR Calculation mL/min/1.73m2 () (test code = 0842103871) GILBERTO (test code = GILBERTO) Association of [...] tests). Lab Interpretation Abnormal (test code = 98221-9) [facility] Test Item Value Reference Range Interpretation Comments MAGNESIUM (test code = 1541663917) 1.7 mg/dL 1.7-2.4 Lab Interpretation (test code = Normal 54979-2) [facility] LACTIC [id number] 19:25:00 Test Item Value Reference Range Interpretation Comments PH (test code = 7.32-7.42 L 6932333215) PCO2 PANKAJ (test code = See_Comment L [Auto mated 7684242286) message] The sy stem which generated this result transmitted reference range : 41 - 51 mmHg. The reference range was not used to interpret this result as normal/abnormal . PO2 PANKAJ (test code = See_Comment H [Autom ated 2729277866) message] The sy stem which generated this result transmitted reference range : 25 - 40 mmHg. The reference range was not used to interpret this result as normal/abnormal . HCO3 PANKAJ (test code = See_Comment L [Auto mated 1025866267) message] The sy stem which generated this result transmitted reference range : 24 - 28 mEq/L. The reference range was not used to interpret this result as normal/abnormal . AC VBE(BEAKER) (test mEq/L code = 9293418516) THB PANKAJ (test code = 10.1 g/dL 13.5-18 L 7951809912) %O2HB PANKAJ (test code = 84.0 % 52-63 H 7029032548) %COHB PANKAJ (test code = 0.6 % 0-1.5 7797676695) %METHB PANKAJ (test code = 0.3 % 0.4-1.5 L 5793025503) VOL%O2 PANKAJ (test code = 12.0 % 6-12 3285209201) NA (test code = 135 mmol/L 135-145 9138556130) K+ (test code = 3.5 mmol/L 3.5-5 0390615640) AC CA IONZ (test code = 4.50 mg/dL 4.5-5.3 9278500626) GLUCOSE (test code = 87 mg/dL 70-110 7932233728) LACTIC ACID (test code 3.34 mmol/L = 8977628197) Lab Interpretation Abnormal (test code = 43142-1) [facility] [id number] 19:19:00 Test Item Value Reference Range Interpretation Comments PH (test code = 2) 7.35-7.45 L PCO2 (test code = See_Comment L [Automate d 0228134273) message] The sy stem which generated this result transmitted reference range : 35 - 45 mmHg. The reference range was not used to interpret this result as normal/abnormal . PO2 (test code = See_Comment H [Automated 4973100481) message] The sy stem which generated this result transmitted reference range : 80 - 100 mmHg. The reference range was not used to interpret this result as normal/abnormal . HCO3 (test code = See_Comment L [Automate d 0479898896) message] The sy stem which generated this result transmitted reference range : 22 - 26 mEq/L. The reference range was not used to interpret this result as normal/abnormal . BE (test code = See_Comment L [Automated 8931461110) message] The sy stem which generated this result transmitted reference range : -3.0 - 3.0 mEq/ L. The reference r meredith was not used to interpret this result as normal/abnormal . THB (test code = 10.4 g/dL 13.5-18 L 9538564745) %O2HB (test code = 98.3 % 94-99 4387880666) %COHB ART (test code = 0.3 % 0-1.5 5671685362) %METHB ART (test code = 0.3 % 0.4-1.5 L 5271165922) VOL%O2 ART (test code = 14.8 % 15-23 L 4162197415) NA (test code = 135 mmol/L 135-145 6404314879) K+ (test code = 3.5 mmol/L 3.5-5 4776679180) AC CA IONZ (test code = 4.50 mg/dL 4.5-5.3 4677926588) GLUCOSE (test code = 96 mg/dL 70-110 0946091465) LACTIC ACID (test code 2.95 mmol/L = 1632874853) Lab Interpretation Abnormal (test code = 07656-1) [facility] [id number] 16:51:00 Test Item Value Reference Range Interpretation Comments Case Report (test code Surgical Pathology ? ? = 5267012796) ?Case: [id number] ? Authorizing Provider: ?Bia Pedro MD ?Collected: ? 04/03/2020 1513 ?Ordering Location: ? ? [facility] OR ? Received: ?04/03/2020 1657 ? Department ? Pathologist: ? Nimisha Galloway MD PHD ?Specimens: ? A) - COLON, total abdominal colectomy ? B) - COLON, donuts x2 ? Final Diagnosis (test r2rvdQSxLGGoa4guTRAszS code = 6165156246) FuZzEwMzNcZnRuYmpcdWMx SDbqreDtXLkrz5JbW8OgMt AwMFxhbnNpXGRlZmxhbmcx DABrHUK0nxVtHQRaWYziFM TeQEqwAp9bbNZyyRyoYnTk HLCte2xvjoNRigtviCz7q1 hwVZClOyQ7yGEoMMgpH3ko jtFzyFDvFBDsJRl4cH82BL HkoB3qlAIkJNtydlAkHYhb syYiuhDcKpj7OIAuW2phOC AjUGAfS5FeJM8tSFTaUnj1 VBK3RNI0iCxci4I7zIXrrT WinQnuMbPqLvCwCNMEc8Yf XZk8cZxvH1YcDHBtSsO3xS QgUGFyYWdyYXBoIEZvbnQ7 fZcsR8CeORQoVsW7mQJtUN EyEYbvCMDrKf2xzUl3aHwe JnxmADH5Gka9JF4uwn59re b3iChkZKDfjazvHgY6KOsy CGZjgatlTKb5MXvqTRPmeS WeCMVxvVJtU0AwPIigAS5u kbi9IzHxLY3zythwEPitNW MlMXS6KfKwGHQty0Lznkiu MlRmxa2eze43ISK4a9TesM xnDRY8TRD3ZnWdFv1mpBIl SQOzBI3hPgPtiJAoMMOdkh 86nIizLUvbjbQlsT6jGeBs NNMcvVWnQLRqHF0crQVqQN RpdP0olojjDDFtCaFsklja RJSbyFipcoUvOy5yxKnvBH H6SQgxL6dikP1eSdE6MStg O7xdmF7dZRq5ZSidxHW0DG KqrO3bSO9skbunq5apGJT2 WMylNDPtydT8seBkQVGxcQ BvZ6JqlZ97XwEyiVKfD5Bu rC9oCCojKNUbyxp8GqGsMw 0yaZDeqKT1QQcdKdgbLTbi XHBnbmNvbnRccGduZGVjXH BsYWluXHBsYWluXGYwXGZz RqLolLewkXpevT3mZzDaHw MyMFxwbGFpblxmMVxmczIw CSItwxFNTrLVL5dFNdmxGP 5TRJcaWdZCTSXUHL7VZtwj YIWcHASzXH0kEiRDX4RNRJ JgW07KN0SEJHkUSyGZWUQI HPQURg9WW79USSGDOG7GBg VNFCbGMSBFH56KYQNRIGGR NnCCPRZTUITSH7lFXVcyWB QbGRStXEZeC3NKPEORV8IS O74uKXFdoaKiVFZvXLZAZU vSDJMRLWIVNIYYW1GEIX0Z PK8TLYgMOVThG1jRBWRNHV WvV56PE25XEsZVDsJGPMvO LOLJPFAOFH1TXEfQYhLLCB gXBxxUKEOFN0TKYNIraNZo IEVtZIGeYF8BR5YPZUDZBG 9OXHBhciAgICAgLSBOTyBF LwiYKE7NKUKDGpVUWEGKV9 LGMC0EJ5ICJ1uVBRrbRRWy DUKbWZ1ePD4DIQGXYuTFQD BTRVNTSUxFIFNFUlJBVEVE SFWESL8QIYRjeORdMTDaID AtIFJFQUNUSVZFIExZTVBI ID9WLVOQJXFdyyBeZHLnAI QWSRLUPOEhZjOIUEBWLW8P PN3UDnoPGbLspDOuWDJwfb xwbGFpblxmMVxmczIyXGxh okidUTMiGMqmZ9qbFrDfZK VxxYyjUGrcn0XcBUHcHPBg YTxdecZcOUNdx5vbLKThEe I8aQEhZSZKThINOgFzWF0o AJ6aHJLpKYAhTLrgXpULYS xwbGFpblxmMVxmczIwXHBh hdbpAEL9a6krhLEsRUCxxY MmNyMkHHOgBLEjl5hiWBKp bGFuZzEwMzNcZnRuYmpcdW WuDBZtCgCkq6xxb529rXUt a9maZACfKsH6cXRzORAqhT bcjec9mXozHoXxUJBvr9dl cyBcZmNoYXJzZXQwIEFyaW BtB846XATcMPhzl4eoc9Wc UBBnlBBrk2A3GRBWRMwrBs KeQ872x7avc9suunQtdFT3 OFSqAON1XJxzkxOnhpB6DJ ycxVWbHhM3MAbfghEzVBwk abTxgsNkVkl9TVYbW333VT P0hDelp1nkHKW5OOGeVETu MtgzEj1czDMfX896UUTxEI UTBEBgvMm3KRTqbdBbieDe zPTZz569A197u4qrPXLiyu RmgKlJbrldt6vwC247JJXr cGVydzEyMjQwXHBhcGVyaD T2DFHiPG2vwxnhJQpjDClr WTXtvnT1NENyaESkC2YbNP WeRL0ayxekHAB7ZGzuWJEd XCE8XkStDYWpz8Ucwbm4Fv Jziw8sak61HBK1a3XjuNfd RYC8OGN1AfHkNp2thNUuRM FwCX7bQdNmtWYvFPKdij71 wQkwRWzoxiKnyW7sAmFaJL OoaQRxJRGgDP3joRXjRCZp oA0upmfwWDBuHkBefxdgUG IzjVldjrPuTt7doVbgJZZ5 CPzyO6rsgD4oFdY6AVumS7 dfoI5iTPd7KBevoAP2BWKk kP7dWB0wyijoc5zxBErjQP czQYHhdyV2sgR2CVAggOGr H0DkkM8aNHIgYX6fettsx7 hpGZB0SCnoJRSeEUO2RkHv VBJca7Lijdb5AiCiz1HloH HxXAihG67ui462LLUjhzLe P3rdzXVrimifjIGfsxbhQI dzzrK9ONCyKKZyEOdzUGPs XGZzMjBcbGFuZzEwMzNcaG ljaFxmMVxkYmNoXGYxXGxv G1mtIxBkO3VuPIEpSeMhmV ZeIYwpwIV6XQToWQUwg26a oOa2FGKxenlju3TlBDEarU WypQJxvJ2nzjQxb5wrNJUs ZVDyWOKjU8TaNAP6jGDeIB ZtvWCzfFE0SZ5klnNvSI7t ZGUgYnkgcmVzaWRlbnRzLC YqQSnik9ymTA3zDICbfEds cK3tmRZ9VPOly0slvWConT Zsu7fzr7CamsFzQXkuHNIy XOueNPXnHDBpRK5jSLVyhE RjonGvz9U7GbyaqYMcfudb HmgezkJ3SWasckxbIVZoBR ftJ7gtWrAxQWRhuNwxUhrv i7ShUUOiDWHrEqotnBWomW 0= Clinical Information Large bowel (test code = obstruction [K56.609] 6986041708) Gross Description (test g7eofAUhMAUqbKOiZgFoUG code = 1899612066) VwZWElb5wfERBosWZpNaGk MzNcZnRuYmpcdWMxXGRlZm Edm4cut901fPRwf3wzIRBp DlK1dLItYQNyrUKsC662AQ DvZZwqw5pyb5XbOARbqNYa c3C2VWDVibnwjBp0pVhhR5 4nc7M3KetbP6faKZXjLJyk VQXpRBqxiGBfESL3IXMiMG O4ZUpbbnYsnkB2WFnyuKYx LmH5JGx6v3gfuOtzWIRkIX T3w5dsQCvcteInKS7kwl3b qMa2p8zwpiGxJPOlSZHivB EUAZUdR3PrjRigSn3brYf6 fLgfYggtQEZ2Ute3RB8jhx 14tbk0nUycATKeehreKhG5 FKhuZRMzznonMWa2DBjdRM QajVHgTXDgdWIaT6KeOLso YN6hnhf8KcMmPK6jeiadXP uaMPQbJBU5QsKzAHQoq8Sf jxgsGqUsny4thz89FKN0j6 QpsYetDDQ9CWQ9QcMzYq8e hZPvRJZpVM8eYtVayFVvRX Rshb41uZhrZYhsohWgyA4z BwHnHXZfwBGpZRWeOZ0ceU KyJTYdjA4szrzgLZPfAkEf ywfiCRRxzUedtoSvZx3brO hlMVK2EIgbW3nqxQ7vEjO0 TRrzX0fnmN1tBQx7YTcgaR K9WXCtxN8cKT8olcadz1ic WAD9PFlbPNDxwjE8ouZfVU McjWQgQ9BaiE68IpGloNIe O8SsxC4sQLjnVPRocdg6Do WgUx5eqOGqvNH8REtkUtkv YWdlXHBnbmNvbnRccGduZG VjXHBsYWluXHBsYWluXGYw JVLyUbWlpAviySbmeA2gAo BcZnMyMFxwbGFpblxmMVxm czIwIFNwZWNpbWVuIEEgaX KzbmHqPCd8QXBqSvQys4ec gJOrITmgBQVdb7h0nWS6vC KbhVB5aLKluFfwXN6unQUl PTRMYN66bQFyqiPmL90qz2 6wPUQqyLTdQDYsVX3efU6o lUKug4tdL0ZbcBuqTJIowt VwN53if5lzaNKkm4KaRMK5 w5NniZMky9arE5QfsEyob8 YbV6trKJ1jWNvvXmJaO15x kZ1ufEEoG2HeNTpcCR8yJE XsFcNoO24vbZ9dBLffwDO1 FAAfJBdpsMzvZOV8AWOaWQ FxeLNviJawFKpjfCmkxD6x ECKsPTXiiHRnqnPfXP9iqI arnSP2JbSwO47yLKmbqKL9 IHCtVLL4wDKfXF3uZNawr5 NzbHkgaWRlbnRpZmlhYmxl HSMhaMAwUJf4LzENvUGlb4 Kwy0ShEInbULNytg7iMSEi OZ2kJHYvy865dKG1lDNxPX XloZJ1GRHvmyWnw4Ojzy5f VGhlIHNwZWNpbWVuIGlzIG 8sFS4sSJHqbE3iTxKupQKj GH33xV2gi1JglOQbcAYwFp 9yZGVyLiBUaGVyZSBpcyBh UHJczbE5yKFcllNhxLgwwX T1PLkwBYhyLGruAEWeN4Wi DEDeh94mXVApxzB3cL19ou VulEHmMRG6BOXrDINpeKBq WgTrK81nHqCyxGF0eVJiOL djsQIyYZ3lsnxcnjVvdgLd TFFfO60qOfAecIA7dNMsyT EuaLkzXLrsuEHsX2vcKgHX bk42bC2xqPW6pcP4fGSazV RlypuzwGBxkMAbLA48wL3u UPYlb0XpS9fnFRewf4Wwlo O3jLTcKk39QDgrhTXcMEwg dGVuZGVkIGZvciBhIGxlbm j3dFJsBfIdQZ6cGEChPmXB iHSvkX7thFrdKOApo2Uqig BlEJRcKHpkg34pjBpkHI97 T75yNBZxptMzn1OykQa3PK WzWFG4YZ3pCQfsV6MekhEv YXIsIHdpdGggYXJlYXMgb2 RtM49yBlkld0JxjdZhBEDv KHIdHX6wUWHkdyXpG1hcRb Eeiw6gYGTtNL7zSc80PREe PL5kFTchMWrupCoqe6TufS piJZYvp0VkigHaQTGvLMxk u69pdFPqnDyvS7swenPqZU PoAYVnnDWtPUH9VQgiNV9z hX4tHLMga12cVI9hXIGuNd MswBtrDLGsILVrVJ7czR4a hyjzrXHob7RnMG9sWWKrKU Zpf8shziRzdrO4CN0dzJfh clLtfvXlmVzkKFRzb2KasD JnPJCwnK1vHPTjPSWtgfDu uy4hh0j5DLZjYQLoVL5tJW GdyOkpMNxgBB1bLOEldJRo iY3nvFqwahB2bDRvJBMzzl BhbiBhZGRpdGlvbmFsIHdl rFkojLVucFPyAMH5xlisX9 HeFGFiTCZmGOSnp8SytRS4 edS8eMZcwJvoy9HpY1LdBQ w4udS2qC5pPEMdAAAaMIyr ZKOreB3rb1lttHYtqEmft4 FiJ9EkLMQrhZOaSNvnaZyq QE6mPMM1JNNaFSRtf8AajS BatXFfNdIwjjShv9SmesVv OTNmRJFxuSAwmxQrBL2osX wxGgkwQC08CPMcWDriQMGj CY3ahCZgJUV6vYZaOKUlh8 VeuFRiIMGkHHPqn8KeqUiv IGxpbmUgYXQgdGhlIGJsaW 5kEEFgBNyne3Pmmm19pkVn NYFnqLFjrSCoH0pxXCHqQW fdp5ExAYIax5S1HQ6cLBmx IHJlbWFpbmluZyBtdWNvc2 Vnw6XiuQfoIHuoGRZiGOdt QLTsSyB0b8QwoFQevWYrrB BhbmQgdGhlIHZpYWJpbGl0 bOTjXoV9dSAdzxZlYCP4dU 6tOO7jdzpjxfDmSX2da1Ms EoVdA2Udr6WdeCXpYXFxgw 1pbmVkLiBUaGUgcGVyaWNv uX2tqPUhLKWidB1xAAJ6wT RatVBijNXycLOcnZI9DKMa Qr1oWRVkdP5vq0jdnIXpeS vahIbkuc1vGNCmXKTnehmx apdrBiZllVLzEfMiZF69XK GcVSvmMSfvLYT6DRP9TMEb xLVqs8nqxrxwSFZscTKfx2 CjnZT8zLYfGNCtK0Ryg77n IJKcWVIviCUpbIO3JNWkcT 4gQTEtQTEwLlxwYXJccGFy OPFyI0Ltx94oP14lGReszQ NiDFAbFoGUie21iW8pqWUg HPFxY6Cbf05mjOFfC9jtDX BlbiBmYWNlLCByZXByZXNl roKeaHo8BNsfVKCfSKT1AN Wcl2JkkPVxPDJhM3Uja99m aDKtK2voGHAvveMiKDDyEA FjOKIuQRDlinDwcQh7BPnb CTNsRTB1DQyfVV9xHBJibK HwnM7rrUzotmT2iIKkXVD8 sxnrV6EcCQOrWIWgSKKwnT Bkr0XsxVF1eSNkFQOlyhEK UAgpPrWqhgQyZB98BLZfwm Fyf3GxqFvmssLeu9EfdMLj t3VmSBAnJGG9OTigYUUld6 hpbWFsIHRvIHRoZSBkaXN0 DA2rHJTeFDGsZDjgECOqHJ XpJTB3XBUpsGStw6GsjWB0 uXFlMFFmT3Pdq23lZV2hRR 28D61gKMBbfcGqo6AgmBLb ff2gFMJeWWHtaVO7YE2bJC FsXQBcKMoiCTXvPBn8BKWm GIWhn2WiDBU8gwmuK3LzZT NjYXIgZGlzdGFsIHRvIGRp s3MqysSlYGQawzFdZCXfPC HaPLQlgvDwqGl8PTlwTNHa XAl4VHYeuAAxh7OsnAX3zV UmTUOeI5Nup21kTU2pKO41 A48lULYrleMkp4IjtICatA Y0XXrwtB2htQcpNTKzd9Mt bmRlZCBhcmVhXHBhciBBOT zvKJ1pr5uboYClnIvdb9Yn U0AyWTWeeMKfTJTrWOKdKS EscyDiyIm9QJgoJUFiREEp CdFHjz1lxaOpSVQ0qD2sJC 9mIGludGVzdGluZSBhdHRh A0ikGQN2uvBwt1DpjWPkHG KdeYViQ5TeZOnimyEgviMt HMBfmKMrz3WtaCT3zOTmOB EgspCQURJ8ZJDjgI7kg7tj eXFkaOhxqZlrgt7vQEKaES wij2ygQXxwEOQouTOpJGQl aoCjoAvhdT9sEkDdNwNwIE xwbGFpblxmMVxmczIwIFNw ZWNpbWVuIEIgaXMgcmVjZW k4OXNlCrDkg5ajvUYhFWho ETF5kBZwBAKzEGQcSPTiOU 82H7ZxzsJzQRuaKQhmzcDa HqVjWQVle3qkuawlZT4kaP UqVDfgCJotGchlND5yHWRx oiVcb9KnEJ4jXSKaPZ5cv4 TnaG2jaP0aRIEqjzX7bnKx OB12VJweGL89QTwwRT71LQ NtIGFuZCAyLjUgeCAxLjkg uRNaLmmbZ47lVfXUt1YzPC WkbqE6ioVjhpNxGdyqCWU5 WWZmJWHmSIMndTTrjU0dam XfkyBolGQevXJ6CPFiYN89 fZUghKedIN0eZcKlUIFvro AHZO7VOrtqzSHjY9SoVRBn wiF6LRwrDOWpHRXkCJIxFT BzbWFsbGVyIGRvdWdobnV0 IGluIEIzLiBccGFyXHBhci HWCMJ3LKGdzfHfbGdfRHSZ HXJgLRSiU1I0ZURtfGqtYE HdPUS5lzDiVXHlD5GmANPJ UEPRQ5JhVIRrRJrwYIMyRG ZzMTZcbGFuZzEwMzNcaGlj aFxmMVxkYmNoXGYxXGxvY2 stVxEeC4MmFSRcHVBzL13j rWepsA1pYeYyPhBpTMznXH SqjFlqrAevmW2iUfSgCkGd MFxwbGFpblxmMVxmczIwXH Bhcn0= Embedded Images (test code = [id number]) [facility]04:Ana Ahn MD ? ? 04/06/2020 11:06 AMIntubationUrgency: emergent Difficult airway General Information and Staff Patient location during procedure: ORAnesthesiologist: Cynthia Herring MDResident/FITNESS SERVICES MANAGER: Dana Sampson DOPerformed: anesthesiologist and resident/FITNESS SERVICES MANAGER Indications and Patient ConditionIndications for airway [...] from glidescope to advance tube into airway. [facility] 16:04:Ana Ahn MD ? ? 04/08/2020 ?5:11 AMIntubationUrgency: emergent Difficult airway General Information and Staff Patient location during procedure: ORAnesthesiologist: Cynthia Herring MDResident/FITNESS SERVICES MANAGER: Dana Sampson DOPerformed: anesthesiologist and resident/FITNESS SERVICES MANAGER Indications and Patient ConditionIndications for airway [...] glidescope to advance tube into airway. Additional [id number] on VL by CA1, multiple attempts by CA1 with ETT with stylet and bougie, unable to pass ETT through glottis. BVM between attempts. Glidescope stylet with ETT used by faculty under VL, attempt x 1 by faculty, g1v, atraumatic.[facility]XR [id number] 15:42:20 Large volume pneumoperitoneum. Continued gaseous distention and dilatation of the stomach and smallbowelfollowing total colectomy with ileoanal anastomosis may representpostoperative ileus. Findings [facility]um [facility] Preliminary Report Dictated by Resident: Bart [...] small bowel and issimilar to prior radiographs. Penrose project over the midline in the lowerabdomen. [facility], Radiant Results Inft User - [...] small bowel and issimilar to prior radiographs. Penrose project over the midline in the lowerabdomen.IMPRESSIONLarge volume pneumoperitoneum.Continued gaseous distention and dilatation of the stomach and small bowelfollowing total colectomy with ileoanal anastomosis may representpostoperative ileus.Findings regarding pneumoperitoneum [facility].Preliminary Report Dictated by Resident: Bart Klein reviewed this study and agree.Weston Damon MD., have reviewed this study andagree with theabove report. [facility]oType and Screen - ONCE [id number] 15:18:48 Test Item Value Reference Range Interpretation Comments ABO & RH (test code O POSITIVE Performe d at [facility] = 20) [facility] [address] [facility] s [id number] Free: [phone] A No. [id number] IAT (test code = Negative Performed a t [facility] 1185) [facility] [address] [facility] [address] [id number] Free: [phone] A No. [id number] [facility] [id number] 15:09:51 1. ?Interval development of a large [...] the midline and inferiorly beyondthe diaphragm and rhehb-di-hdgd. Left diaphragm is elevated with interval development of large amount offree air noted under the diaphragms, better seen on concomitant abdominalx-ray. Lungs are clear without focal consolidation, pleural effusion orpneumothorax. The cardiomediastinal silhouette is stable. ?No acute osseousabnormalities. 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 Left diaphragm is elevated with interval development [...] 0931amwith readback. Preliminary Report Dictated by Resident: Tawny Mccauley, Jovanna Caceres MD., have reviewed this study and agree with theabovereport.[facility] [id number] 14:52:37Ana Syed MD ? ? 04/06/2020 ?9:53 [...] tolerated procedure well with no complications ? [facility] BranchCentral [id number] 14:52:37Ana Syed MD ? ? 04/06/2020 ?9:53 [...] tolerated procedure well with no complications ? [facility] BranchArterial [id number] 14:51:44Ana Syed MD ? ? 04/06/2020 ?9:52 [...] ?Site: ?Radial artery ?Line Secured: ?Biopatch, Tegaderm and tape ?Preparation: ?Chloroprep, drape, sterile gloves, guidewire removed intact and biopatch appliedEvents: ?Events: ?Patient tolerated procedure well with no complications and all wires accounted for [facility] BranchArterial [id number] 14:51:44Ana Syed MD ? ? 04/06/2020 ?9:52 [...] complications and all wires accounted for _ [facility] [id number] 13:22:00 Test Item Value Reference Range Interpretation Comments WBC (test code = See_Comment LL [Automated 5790-2) message] The system which generated this result transmitted reference range : 4.20 - 10.70 10*3/?L. The reference range was not used to interpret this result as normal/abnormal . RBC (test code = See_Comment [Automated 359-8) message] The system which generated this result [...] RDW-SD (test code = 47.8 fL 38.5-51.6 54579-8) RDW-CV (test code = 14.6 % 12.1-15.4 788-0) PLT (test code = See_Comment [Automated 777-3) message] The system which generated this result transmitted reference range : 150 - 328 10*3/?L. The reference range was not used to interpret this result as normal/abnormal . MPV (test code = 12.1 fL 9.8-13 20349-4) NRBC/100 WBC (test See_Comment [Automat ed code = 3811748627) message] The system which generated this result transmitted reference range : 0.0 - 10.0 /100 WBCs. The reference range was not used to interpret this result as normal/abnormal . NRBC x10^3 (test code <0.01 See_Comment [Auto mated = 4226051785) message] The system which generated this result transmitted reference range : 10*3/?L. The reference range was not used to interpret this result as normal/abnormal . GRAN MAT (NEUT) % 71.6 % (test code = 770-8) IMM GRAN % (test code 0.90 % = 2960276410) LYMPH % (test code = 18.3 % 736-9) MONO % (test code = 9.2 % 5905-5) EOS % (test code = 0.0 % 713-8) BASO % (test code = 0.0 % 706-2) GRAN MAT x10^3(ANC) 0.78 10*3/uL 1.99-6.95 L (test code = 4786273477) IMM GRAN x10^3 (test <0.03 0-0.06 code = 6841226174) LYMPH x10^3 (test 0.20 10*3/uL 1.09-3.23 L code = 731-0) MONO x10^3 (test code 0.10 10*3/uL 0.36-1.02 L = 742-7) EOS x10^3 (test code <0.03 0.06-0.53 L = 711-2) BASO x10^3 (test code <0.03 0.01-0.09 = 704-7) GOLDEN CELLS (test code 2+ See_Comment A [Auto mated = 0549-9) message] The system which generated this result transmitted reference range : (none). The reference range was not used to interpret this result as normal/abnormal . BANDS (test code = MARKED INCREASED A 9504072323) Lab Interpretation Abnormal (test code = 65316-3) [facility] METABOLIC PANEL (NA, K, CL, CO2, GLUCOSE, BUN, CREATININE, CA)2020-04-06 12:38:00 Test Item Value Reference Range Interpretation Comments NA (test code = 134 mmol/L 135-145 L 1807157673) K (test code = 4.5 mmol/L 3.5-5 8979034803) CL (test code = 105 mmol/L 98-108 9402298546) CO2 TOTAL (test code = 18 mmol/L 23-31 L 2861922747) AGAP (test code = 2-16 4794984942) BUN (test code = 30 mg/dL 7-23 H 8636199356) GLUCOSE (test code = 117 mg/dL 70-110 H 0451446989) CREATININE (test code = 1.95 mg/dL 0.6-1.25 H 9548683613) CALCIUM (test code = 8.6 mg/dL 8.6-10.6 9693522307) eGFR Calculation mL/min/1.73m2 (Non-) (test code = 7483243966) eGFR Calculation mL/min/1.73m2 () (test code = 6377518619) GILBERTO (test code = GILBERTO) Association of [...] tests). Lab Interpretation Abnormal (test code = 97019-5) [facility]:00 Test Item Value Reference Range Interpretation Comments MAGNESIUM (test code = 4848747016) 2.3 mg/dL 1.7-2.4 Lab Interpretation (test code = Normal 89858-2) [facility] [id number] 23:28:32 Prominent gaseous distention of small bowel [...] pelvis. Note: Left hemidiaphragm isnot fully within pjhgz-mn-hsbk. FINDINGS: Status post colectomy. Massive gaseous distention [...] and pelvis.Note: Left hemidiaphragm isnot fully within wlbwj-aq-obqg.FINDINGS:Status post colectomy.Massive gaseous distention of the stomach [...] with physicalexam.Preliminary Report Dictated by Resident: Louis Mluler MD., have reviewed this study and agree with theabove report. [facility] [id number] 23:22:45 Esophogastric tube tip projects over the stomach fundus. Redemonstration of extensive small bowel dilatation in the recentpostoperative setting status post total colectomy with ileoanalanastomosis. Findings may represent severe ileus. Correlate clinically. Preliminary Report Dictated by Resident: Louis Donnelly MD., have reviewed this study and agree with theabove report.EXAM: XRKUB HISTORY: post ngt placement COMPARISON: KU 04/05/2020 Technique: Single AP view of the upper abdomen. Note: Bilateralhemidiaphragms and upper abdomen are not within skjnv-yx-posd. FINDINGS: The tipof the esophogastric tube projects [...] CDTEXAM: XR KUBHISTORY: post ngt placement COMPARISON: KU 04/05/2020Technique: Single AP view of the upper abdomen. Note: Bilateralhemidiaphragms and upper abdomen are not within ixieb-pq-etro.FINDINGS:The tip of the esophogastric tube projects over [...] Correlate clinically. Preliminary Report Dictated by Resident: Bart Klein, Louis Rice MD., have reviewed this study and agree with theabove report.[facility] (NA, K, CL, CO2, GLUCOSE, BUN, CREATININE, CA)2020-04-05 11:08:00 Test Item Value Reference Range Interpretation Comments NA (test code = 137 mmol/L 135-145 7339599645) K (test code = 4.4 mmol/L 3.5-5 0080602705) CL (test code = 104 mmol/L 98-108 7034461438) CO2 TOTAL (test code = 24 mmol/L 23-31 4979650564) AGAP (test code = 2-16 3320159951) BUN (test code = 10 mg/dL 7-23 6105746799) GLUCOSE (test code = 104 mg/dL 70-110 7189824055) CREATININE (test code 1.18 mg/dL 0.6-1.25 = 4892850670) CALCIUM (test code = 8.7 mg/dL 8.6-10.6 3815085295) eGFR Calculation mL/min/1.73m2 (Non-) (test code = 7176166896) eGFR Calculation mL/min/1.73m2 () (test code = 5240772368) GILBERTO (test code = GILBERTO) Association of [...] or urine or abnormalities in imaging tests). [facility] [facility] 11:[facility]00 Test Item Value Reference Range Interpretation Comments MAGNESIUM (test code = 2030577459) 2.3 mg/dL 1.7-2.4 Lab Interpretation (test code = Normal 83576-2) [facility] WITH [id number] 10:32:00 Test Item Value Reference Range Interpretation Comments WBC (test code = See_Comment [Automated 2090-2) message] The sy stem which generated this result transmitted reference range : 4.20 - 10.70 10*3/?L. The reference range was not used to interpret this result as normal/abnormal . RBC (test code = See_Comment L [Automated 575-8) message] The sy stem which generated this [...] RDW-SD (test code = 47.8 fL 38.5-51.6 42530-8) RDW-CV (test code = 14.6 % 12.1-15.4 788-0) PLT (test code = See_Comment [Automated 777-3) message] The sy stem which generated this result transmitted reference range : 150 - 328 10*3/ ?L. The reference r meredith was not used to interpret this result as normal/abnormal . MPV (test code = 11.6 fL 9.8-13 77249-2) NRBC/100 WBC (test See_Comment [Automat ed code = 8932563379) message] The system which generated this result transmitted reference range : 0.0 - 10.0 /100 WBCs. The refer ence range was not u sed to interpret th is result as normal/abnormal . NRBC x10^3 (test code <0.01 See_Comment [Auto mated = 5431323950) message] The s ystem which generated this result transmitted reference range : 10*3/?L. The reference range was not used to interpret this result as normal/abnormal . GRAN MAT (NEUT) % 82.4 % (test code = 770-8) IMM GRAN % (test code 0.30 % = 1697534657) LYMPH % (test code = 12.4 % 736-9) MONO % (test code = 4.5 % 5905-5) EOS % (test code = 0.2 % 713-8) BASO % (test code = 0.2 % 706-2) GRAN MAT x10^3(ANC) 5.12 10*3/uL 1.99-6.95 (test code = 1684094658) IMM GRAN x10^3 (test <0.03 0-0.06 code = 6805883945) LYMPH x10^3 (test code 0.77 10*3/uL 1.09-3.23 L = 731-0) MONO x10^3 (test code 0.28 10*3/uL 0.36-1.02 L = 742-7) EOS x10^3 (test code = <0.03 0.06-0.53 L 711-2) BASO x10^3 (test code <0.03 0.01-0.09 = 704-7) Lab Interpretation Abnormal (test code = 00830-4) [facility] METABOLIC PANEL (NA, K, CL, CO2, GLUCOSE, BUN, CREATININE, CA)2020-04-04 11:02:00 Test Item Value Reference Range Interpretation Comments NA (test code = 135 mmol/L 135-145 3128499485) K (test code = 4.4 mmol/L 3.5-5 Slight 4661921312) hemolysis CL (test code = 103 mmol/L 98-108 2298515566) CO2 TOTAL (test code 26 mmol/L 23-31 = 1792188812) AGAP (test code = 2-16 0869623328) BUN (test code = 7 mg/dL 7-23 Slight 8952670140) hemolysis GLUCOSE (test code = 119 mg/dL 70-110 H 2947206963) CREATININE (test code 0.95 mg/dL 0.6-1.25 = 1146628560) CALCIUM (test code = 8.3 mg/dL 8.6-10.6 L 1807096120) eGFR Calculation mL/min/1.73m2 (Non-) (test code = 5789244095) eGFR Calculation mL/min/1.73m2 () (test code = 6224911049) GILBERTO (test code = GILBERTO) Association of [...] tests). Lab Interpretation Abnormal (test code = 19511-0) [facility] 11:02:00 Test Item Value Reference Range Interpretation Comments MAGNESIUM (test code = 7593818707) 1.7 mg/dL 1.7-2.4 Lab Interpretation (test code = Normal 99193-8) [facility] WITH [id number] 10:31:00 Test Item Value Reference Range Interpretation [...] RDW-SD (test code = 46.5 fL 38.5-51.6 95458-3) RDW-CV (test code = 14.3 % 12.1-15.4 788-0) PLT (test code = See_Comment L [Automated 777-3) message] The sy stem which generated this result transmitted reference range : 150 - 328 10*3/ ?L. The reference r meredith was not used to interpret this result as normal/abnormal . MPV (test code = 11.2 fL 9.8-13 46081-5) NRBC/100 WBC (test See_Comment [Automat ed code = 9029500686) message] The system which generated this result transmitted reference range : 0.0 - 10.0 /100 WBCs. The refer ence range was not u sed to interpret th is result as normal/abnormal . NRBC x10^3 (test code <0.01 See_Comment [Auto mated = 0757250162) message] The s ystem which generated this result transmitted reference range : 10*3/?L. The reference range was not used to interpret this result as normal/abnormal . GRAN MAT (NEUT) % 76.7 % (test code = 770-8) IMM GRAN % (test code 0.30 % = 3836866880) LYMPH % (test code = 16.4 % 736-9) MONO % (test code = 6.2 % 5905-5) EOS % (test code = 0.2 % 713-8) BASO % (test code = 0.2 % 706-2) GRAN MAT x10^3(ANC) 5.12 10*3/uL 1.99-6.95 (test code = 9183964472) IMM GRAN x10^3 (test <0.03 0-0.06 code = 9134207059) LYMPH x10^3 (test code 1.09 10*3/uL 1.09-3.23 = 731-0) MONO x10^3 (test code 0.41 10*3/uL 0.36-1.02 = 742-7) EOS x10^3 (test code = <0.03 0.06-0.53 L 711-2) BASO x10^3 (test code <0.03 0.01-0.09 = 704-7) Lab Interpretation Abnormal (test code = 11107-7) [facility] WITH [id number] 11:04:00 Test Item Value Reference Range Interpretation [...] RDW-SD (test code = 45.6 fL 38.5-51.6 82470-8) RDW-CV (test code = 14.0 % 12.1-15.4 788-0) PLT (test code = See_Comment L [Automated 777-3) message] The sy stem which generated this result transmitted reference range : 150 - 328 10*3/ ?L. The reference r meredith was not used to interpret this result as normal/abnormal . MPV (test code = 11.2 fL 9.8-13 70002-5) NRBC/100 WBC (test See_Comment [Automat ed code = 8799842750) message] The system which generated this result transmitted reference range : 0.0 - 10.0 /100 WBCs. The refer ence range was not u sed to interpret th is result as normal/abnormal . NRBC x10^3 (test code <0.01 See_Comment [Auto mated = 5572239422) message] The s ystem which generated this result transmitted reference range : 10*3/?L. The reference range was not used to interpret this result as normal/abnormal . GRAN MAT (NEUT) % 52.7 % (test code = 770-8) IMM GRAN % (test code 0.30 % = 6761584055) LYMPH % (test code = 34.6 % 736-9) MONO % (test code = 9.6 % 5905-5) EOS % (test code = 2.2 % 713-8) BASO % (test code = 0.6 % 706-2) GRAN MAT x10^3(ANC) 1.88 10*3/uL 1.99-6.95 L (test code = 5683538093) IMM GRAN x10^3 (test <0.03 0-0.06 code = 5823721472) LYMPH x10^3 (test code 1.23 10*3/uL 1.09-3.23 = 731-0) MONO x10^3 (test code 0.34 10*3/uL 0.36-1.02 L = 742-7) EOS x10^3 (test code = 0.08 10*3/uL 0.06-0.53 711-2) BASO x10^3 (test code <0.03 0.01-0.09 = 704-7) REACT LYMPHS (test Rare code = 0843528743) Lab Interpretation Abnormal (test code = 06047-2) [facility] METABOLIC PANEL (NA, K, CL, CO2, GLUCOSE, BUN, CREATININE, CA)2020-04-03 10:54:00 Test Item Value Reference Range Interpretation Comments NA (test code = 140 mmol/L 135-145 1093414100) K (test code = 3.9 mmol/L 3.5-5 7943246168) CL (test code = 107 mmol/L 98-108 2100003240) CO2 TOTAL (test code = 28 mmol/L 23-31 0972783105) AGAP (test code = 2-16 1100085608) BUN (test code = 4 mg/dL 7-23 L 1454584552) GLUCOSE (test code = 88 mg/dL 70-110 7887508928) CREATININE (test code = 0.96 mg/dL 0.6-1.25 0898192123) CALCIUM (test code = 8.6 mg/dL 8.6-10.6 4612741610) eGFR Calculation mL/min/1.73m2 (Non-) (test code = 9024701186) eGFR Calculation mL/min/1.73m2 () (test code = 9526828467) GILBERTO (test code = GILBERTO) Association of [...] tests). Lab Interpretation Abnormal (test code = 69128-8) [facility] 10:54:00 Test Item Value Reference Range Interpretation Comments MAGNESIUM (test code = 4458938455) 2.0 mg/dL 1.7-2.4 Lab Interpretation (test code = Normal 66785-5) [facility] - ONCE [id number] 23:40:25 Test Item Value Reference Range Interpretation Comments ABO & RH (test code O POSITIVE Performe d at [facility] = 20) [facility] [address] [place] [address]Bajx Free: [phone] A No. [id number] IAT (test code = Negative Performed a t [facility] 1185) [facility] [address] [place], [place] [address]jo [facility] [address]Nrgc Free: [phone] A No. [id number] [facility] WITH [id number] 11:21:00 Test Item Value Reference Range Interpretation [...] RDW-SD (test code = 45.8 fL 38.5-51.6 85960-6) RDW-CV (test code = 14.2 % 12.1-15.4 788-0) PLT (test code = See_Comment L [Automated 777-3) message] The sy stem which generated this result transmitted reference range : 150 - 328 10*3/ ?L. The reference r meredith was not used to interpret this result as normal/abnormal . MPV (test code = 10.6 fL 9.8-13 61784-3) NRBC/100 WBC (test See_Comment [Automat ed code = 5758026643) message] The system which generated this result transmitted reference range : 0.0 - 10.0 /100 WBCs. The refer ence range was not u sed to interpret th is result as normal/abnormal . NRBC x10^3 (test code <0.01 See_Comment [Auto mated = 0280160663) message] The s ystem which generated this result transmitted reference range : 10*3/?L. The reference range was not used to interpret this result as normal/abnormal . GRAN MAT (NEUT) % 46.4 % (test code = 770-8) IMM GRAN % (test code 0.30 % = 7935605485) LYMPH % (test code = 38.8 % 736-9) MONO % (test code = 10.5 % 5905-5) EOS % (test code = 3.3 % 713-8) BASO % (test code = 0.7 % 706-2) GRAN MAT x10^3(ANC) 1.41 10*3/uL 1.99-6.95 L (test code = 2457915789) IMM GRAN x10^3 (test <0.03 0-0.06 code = 3515135279) LYMPH x10^3 (test code 1.18 10*3/uL 1.09-3.23 [...] . Lab Interpretation Abnormal (test code = 21045-2) [facility] (NA, K, CL, CO2, GLUCOSE, BUN, CREATININE, CA)2020-04-02 11:05:00 Test Item Value Reference Range Interpretation Comments NA (test code = 139 mmol/L 135-145 0535807086) K (test code = 4.0 mmol/L 3.5-5 4563195645) CL (test code = 108 mmol/L 98-108 6773368186) CO2 TOTAL (test code = 25 mmol/L 23-31 5727207197) AGAP (test code = 2-16 4573870881) BUN (test code = 6 mg/dL 7-23 L 9239682506) GLUCOSE (test code = 99 mg/dL 70-110 8271972906) CREATININE (test code = 0.92 mg/dL 0.6-1.25 5325131910) CALCIUM (test code = 8.3 mg/dL 8.6-10.6 L 3601549961) eGFR Calculation mL/min/1.73m2 (Non-) (test code = 7449613842) eGFR Calculation mL/min/1.73m2 () (test code = 9174531990) GILBERTO (test code = GILBERTO) Association of [...] tests). Lab Interpretation Abnormal (test code = 65910-9) [facility] 11:05:00 Test Item Value Reference Range Interpretation Comments MAGNESIUM (test code = 7360771140) 2.0 mg/dL 1.7-2.4 Lab Interpretation (test code = Normal 62798-2) [facility] (ID NOW RAPID TESTING)2020-04-02 00:43:00 Test Item Value Reference Range Interpretation Comments SARS-CoV-2 Rapid ID NOW Not Detected Not Detected (test code = 28826-1) GILBERTO (test code = GILBERTO) ID NOW COVID-19 Assay is an isothermal nucleic acid amplification test intended for the qualitative detection of nucleic acid from SARS-CoV-2 viral RNA in nasopharyngeal (PRODUCT SAFETY OFFICER) specimens. It is used under Emergency Use [...] indicated. Lab Interpretation Normal (test code = 59032-6) [facility]inalysis2020-08-08 11:39:00 Test Item Value Reference Range Interpretation Comments APPEARANCE (test code = Hazy Clear A 1125365289) COLOR (test code = Yellow Yellow 0275005793) PH (test code = 4.8-8.0 7418859475) SP GRAVITY (test code = 1.003-1.030 H 2314580577) GLU U QUAL (test code = Normal Normal 0557742269) BLOOD (test code = Negative Negative 0515530187) KETONES (test code = 5 mg/dL Negative A 9724955652) PROTEIN (test code = Negative Negative 2887-8) UROBILIN (test code = 2.0 mg/dL Normal A 0604909241) BILIRUBIN (test code = Negative Negative 2801805565) NITRITE (test code = Negative Negative 5645651467) LEUK ROGER (test code = Negative Negative 6177349882) RBC/HPF (test code = See_Comment [Autom ated message] 5424017086) The system Sticky generated this result transmit dain reference range : 0 - 3 HPF. The refe rence range was not u sed to interpret th is result as normal/abnormal . WBC/HPF (test code = See_Comment [Autom ated message] 9441277746) The system Sticky generated this result transmit dain reference range : 0 - 5 HPF. The refe rence range was not u sed to interpret th is result as normal/abnormal . BACTERIA (test code = Negative Negative 7742721244) CA OXALATE (test code = See_Comment H [Au tomated message] 7109925132) The system Sticky generated this result transmit dain reference range : <=1 HPF. The refere nce range was not u sed to interpret th is result as normal/abnormal . Lab Interpretation (test Abnormal code = 11778-9) [facility] ABDOMEN PELVIS W [id number] 00:38:37 1. ?Massive air distention of the [...] 460 END OF REPORT ORDERING PHYSICIAN: ALEX LOPEZ CLINICAL INFORMATION: ? Nausea, vomiting Bowelobstruction, high-grade [...] - 03/30/2020 7:39 PM CDTORDERING PHYSICIAN: ALEX CORDEROLINICAL INFORMATION: Nausea, vomiting Bowel obstruction, high-grade Abdpain, [...] focal loculated drainable fluidcollection.RL: 460END OF REPORT [facility] (NA, K, CL, CO2, GLUCOSE, BUN, CREATININE, CA)2020-03-30 23:45:00 Test Item Value Reference Range Interpretation Comments NA (test code = 140 mmol/L 135-145 4458282976) K (test code = 4.3 mmol/L 3.5-5 7037746614) CL (test code = 101 mmol/L 98-108 7229698593) CO2 TOTAL (test code = 28 mmol/L 23-31 6664936176) AGAP (test code = 2-16 5989698430) BUN (test code = 24 mg/dL 7-23 H 6243409975) GLUCOSE (test code = 90 mg/dL 70-110 2329545491) CREATININE (test code = 1.29 mg/dL 0.6-1.25 H 0464853919) CALCIUM (test code = 9.4 mg/dL 8.6-10.6 7849588078) eGFR Calculation mL/min/1.73m2 (Non-) (test code = 7181456557) eGFR Calculation mL/min/1.73m2 () (test code = 7254161110) GILBERTO (test code = GILBERTO) Association of [...] tests). Lab Interpretation Abnormal (test code = 88563-9) [facility] 1 [id number] 23:00:46 No evidence for an acute cardiopulmonary process. Unchanged asymmetric elevation of the left hemidiaphragm. Air-filled colon, similar to that seen on the March 02, 2020 exam. RL: ?[id number] CHEST SINGLE VIEW CLINICAL HISTORY: Abdominal pain ORDERING PHYSICIAN: RENETTA LOPEZ TECHNIQUE: Frontal view of chest COMPARISON: Chest [...] on the March 02, 2020 exam.RL: [id number] [facility] [id number] 22:39:00 Test Item Value Reference Range Interpretation Comments TROPONIN I (test 0.008 ng/mL See_Comment [Automated code = 4119599594) message] The system which generated this result [...] ? Lab Interpretation Normal (test code = 21176-4) [facility]MINAL [id number] 22:39:00 Test Item Value Reference Range Interpretation Comments NT-proBNP (test code 42 pg/mL See_Comment [Autom ated = 1242503848) message] The system which generated this result transmitted reference range : <=125. The reference range was not used to interpret this result as normal/abnormal . GILBERTO (test code = GILBERTO) Biotin has been reported to cause a negative bias, interpret results relative to patient's use of biotin. Lab Interpretation Normal (test code = 43542-6) [facility]atic Function Panel (ALB, T.PRO, BILI T, BU/BC, ALT, AST, ALK PHOS)2020-03-30 22:27:00 Test Item Value Reference Range Interpretation Comments TOTAL BILI (test code = 1949087239) 0.5 mg/dL 0.1-1.1 BILI UNCON (test code = 9939679701) 0.3 mg/dL 0.1-1.1 BILI CONJ (test code = 0941703136) 0.0 mg/dL 0-0.3 T PROTEIN (test code = 4358954368) 6.7 g/dL 6.3-8.2 ALBUMIN (test code = 7352017956) 4.5 g/dL 3.5-5 ALK PHOS (test code = 1023442548) 57 U/L 34-122 ALTv (test code = 1742-6) 31 U/L 5-50 AST(SGOT) (test code = 0619402877) 38 U/L 13-40 Lab Interpretation (test code = Normal 38109-0) [facility]aredoLipase [id number] 22:27:00 Test Item Value Reference Range Interpretation Comments LIPASE (test code = 8393659337) 62 U/L 0-220 Lab Interpretation (test code = Normal 63885-6) [facility]oaPTT2020-08-07 22:25:00 Test Item Value Reference Range Interpretation Comments APTT Patient (test code = See_Comment [ Automated message] 3173-2) The system BCR Environmental h generated this result transmitted ref erence range: 26 - 36 Seconds. The re ference range was not u sed to interpret this result as normal/abnor mal. Lab Interpretation (test Normal code = 00638-9) [facility]oProthrombin Time (PT) / [id number] 22:25:00 Test Item Value Reference Range Interpretation Comments PROTIME PATIENT (test See_Comment [Auto mated message] code = 5964-2) The system Flinto generated this result transmitted ref erence range: 10.1 - 1 2.6 Seconds. The re ference range was not u sed to interpret this result as normal/abnor mal. INR (test code = 6301-6) Nor mal INR <1.1; Warfarin Therap eutic range 2.0 to 3. 0 or 2.5 to 3.5, dep ending upon the indica tions. Lab Interpretation (test Normal code = 87080-1) [facility]oCBC with [id number] 22:17:00 Test Item Value Reference Range Interpretation [...] RDW-SD (test code = 46.9 fL 38.5-51.6 86743-7) RDW-CV (test code = 14.3 % 12.1-15.4 788-0) PLT (test code = See_Comment [Automated 777-3) message] The sy stem which generated this result transmitted reference range : 150 - 328 10*3/ ?L. The reference r meredith was not used to interpret this result as normal/abnormal . MPV (test code = 10.7 fL 9.8-13 33072-6) NRBC/100 WBC (test See_Comment [Automat ed code = 7197698122) message] The system which generated this result transmitted reference range : 0.0 - 10.0 /100 WBCs. The refer ence range was not u sed to interpret th is result as normal/abnormal . NRBC x10^3 (test code <0.01 See_Comment [Auto mated = 6929051659) message] The s ystem which generated this result transmitted reference range : 10*3/?L. The reference range was not used to interpret this result as normal/abnormal . GRAN MAT (NEUT) % 51.7 % (test code = 770-8) IMM GRAN % (test code 0.40 % = 8082968593) LYMPH % (test code = 32.8 % 736-9) MONO % (test code = 12.4 % 5905-5) EOS % (test code = 2.1 % 713-8) BASO % (test code = 0.6 % 706-2) GRAN MAT x10^3(ANC) 2.76 10*3/uL 1.99-6.95 (test code = 6314201088) IMM GRAN x10^3 (test <0.03 0-0.06 code = 5787017617) LYMPH x10^3 (test code 1.75 10*3/uL 1.09-3.23 = 731-0) MONO x10^3 (test code 0.66 10*3/uL 0.36-1.02 = 742-7) EOS x10^3 (test code = 0.11 10*3/uL 0.06-0.53 711-2) BASO x10^3 (test code 0.03 10*3/uL 0.01-0.09 = 704-7) Lab Interpretation Abnormal (test code = 85466-4) [facility] with [id number] 10:26:00 Test Item Value Reference Range Interpretation [...] RDW-SD (test code = 46.3 fL 38.5-51.6 54020-7) RDW-CV (test code = 14.2 % 12.1-15.4 788-0) PLT (test code = See_Comment L [Automated 777-3) message] The sy stem which generated this result transmitted reference range : 150 - 328 10*3/ ?L. The reference r meredith was not used to interpret this result as normal/abnormal . MPV (test code = 10.6 fL 9.8-13 42294-4) NRBC/100 WBC (test See_Comment [Automat ed code = 2887631926) message] The system which generated this result transmitted reference range : 0.0 - 10.0 /100 WBCs. The refer ence range was not u sed to interpret th is result as normal/abnormal . NRBC x10^3 (test code <0.01 See_Comment [Auto mated = 9101469589) message] The s ystem which generated this result transmitted reference range : 10*3/?L. The reference range was not used to interpret this result as normal/abnormal . GRAN MAT (NEUT) % 51.3 % (test code = 770-8) IMM GRAN % (test code 0.30 % = 5284526461) LYMPH % (test code = 32.2 % 736-9) MONO % (test code = 12.7 % 5905-5) EOS % (test code = 3.0 % 713-8) BASO % (test code = 0.5 % 706-2) GRAN MAT x10^3(ANC) 1.89 10*3/uL 1.99-6.95 L (test code = 5901409796) IMM GRAN x10^3 (test <0.03 0-0.06 code = 0548141694) LYMPH x10^3 (test code 1.19 10*3/uL 1.09-3.23 = 731-0) MONO x10^3 (test code 0.47 10*3/uL 0.36-1.02 = 742-7) EOS x10^3 (test code = 0.11 10*3/uL 0.06-0.53 711-2) BASO x10^3 (test code <0.03 0.01-0.09 = 704-7) Lab Interpretation Abnormal (test code = 32590-0) [facility]oMagnesium [id number] 10:17:00 Test Item Value Reference Range Interpretation Comments MAGNESIUM (test code = 0927618766) 2.0 mg/dL 1.7-2.4 Lab Interpretation (test code = Normal 39220-7) [facility] Metabolic Panel (NA, K, CL, CO2, GLUCOSE, BUN, CREATININE, CA)2020-03-26 10:17:00 Test Item Value Reference Range Interpretation Comments NA (test code = 136 mmol/L 135-145 7194432522) K (test code = 4.6 mmol/L 3.5-5 Slight 4454272279) hemolysis CL (test code = 109 mmol/L 98-108 H 1931293537) CO2 TOTAL (test code 26 mmol/L 23-31 = 6442923968) AGAP (test code = 2-16 L 7533827404) BUN (test code = 22 mg/dL 7-23 Slight 6122730043) hemolysis GLUCOSE (test code = 82 mg/dL 70-110 3028711237) CREATININE (test code 0.88 mg/dL 0.6-1.25 = 8367153074) CALCIUM (test code = 8.1 mg/dL 8.6-10.6 L 7322629587) eGFR Calculation mL/min/1.73m2 (Non-) (test code = 1248994594) eGFR Calculation mL/min/1.73m2 () (test code = 2112148160) GILBERTO (test code = GILBERTO) Association of [...] tests). Lab Interpretation Abnormal (test code = 78621-6) [facility] LaredoLactic Acid Whole [id number] 04:22:00 Test Item Value Reference Range Interpretation Comments LACTIC ACID (test code = 1.52 mmol/L 8725536520) [facility]oPhosphorus [id number] 03:37:00 Test Item Value Reference Range Interpretation Comments PHOSPHORUS (test code = 5302687372) 4.6 mg/dL 2.5-5 Lab Interpretation (test code = Normal 01218-5) [facility]2020-08-03 03:37:00 Test Item Value Reference Range Interpretation Comments MAGNESIUM (test code = 8579530591) 2.3 mg/dL 1.7-2.4 Lab Interpretation (test code = Normal 94863-0) [facility] (ID NOW RAPID TESTING)2020-03-26 02:24:00 Test Item Value Reference Range Interpretation Comments SARS-CoV-2 Rapid ID NOW Not Detected Not Detected (test code = 70381-2) GILBERTO (test code = GILBERTO) ID NOW COVID-19 Assay is an isothermal nucleic acid amplification test intended for the qualitative detection of nucleic acid from SARS-CoV-2 viral RNA in nasopharyngeal (PRODUCT SAFETY OFFICER) specimens. It is used under Emergency Use [...] indicated. Lab Interpretation Normal (test code = 39480-2) [facility] ABDOMEN PELVIS W [id number] 01:33:06 Redemonstration of severe dilatation of the [...] No focal bowel inflammation or wall thickening.. [facility] (NA, K, CL, CO2, GLUCOSE, BUN, CREATININE, CA)2020-03-26 00:57:00 Test Item Value Reference Range Interpretation Comments NA (test code = 139 mmol/L 135-145 1345421169) K (test code = 4.4 mmol/L 3.5-5 8629179346) CL (test code = 105 mmol/L 98-108 9030111110) CO2 TOTAL (test code = 29 mmol/L 23-31 5615905014) AGAP (test code = 2-16 4123836409) BUN (test code = 28 mg/dL 7-23 H 9780028616) GLUCOSE (test code = 84 mg/dL 70-110 9807678586) CREATININE (test code = 1.19 mg/dL 0.6-1.25 0352831322) CALCIUM (test code = 8.9 mg/dL 8.6-10.6 1465167352) eGFR Calculation mL/min/1.73m2 (Non-) (test code = 8651114264) eGFR Calculation mL/min/1.73m2 () (test code = 4131282759) GILBERTO (test code = GILBERTO) Association of [...] tests). Lab Interpretation Abnormal (test code = 96007-0) [facility]B, T.PRO, BILI T, BU/BC, ALT, AST, ALK PHOS)2020-03-26 00:57:00 Test Item Value Reference Range Interpretation Comments TOTAL BILI (test code = 6444919250) 0.2 mg/dL 0.1-1.1 BILI UNCON (test code = 5210065069) 0.0 mg/dL 0.1-1.1 L BILI CONJ (test code = 9616624618) 0.0 mg/dL 0-0.3 T PROTEIN (test code = 8865061140) 6.2 g/dL 6.3-8.2 L ALBUMIN (test code = 3970105265) 4.1 g/dL 3.5-5 ALK PHOS (test code = 6587681354) 56 U/L 34-122 ALTv (test code = 1742-6) 24 U/L 5-50 AST(SGOT) (test code = 8268133083) 28 U/L 13-40 Lab Interpretation (test code = Abnormal 21513-4) [facility] with Dexrckwzetmf1203-48-74 00:47:00 Test Item Value Reference Range Interpretation Comments WBC (test code = See_Comment [Automated 3290-2) message] The sy stem which generated this result transmitted reference range : 4.20 - 10.70 10*3/?L. The reference range was not used to interpret this result as normal/abnormal . RBC (test code = See_Comment L [Automated 129-8) message] The sy stem which generated this [...] RDW-SD (test code = 45.9 fL 38.5-51.6 42547-5) RDW-CV (test code = 14.0 % 12.1-15.4 788-0) PLT (test code = See_Comment [Automated 777-3) message] The sy stem which generated this result transmitted reference range : 150 - 328 10*3/ ?L. The reference r meredith was not used to interpret this result as normal/abnormal . MPV (test code = 10.9 fL 9.8-13 99112-0) NRBC/100 WBC (test See_Comment [Automat ed code = 8232514304) message] The system which generated this result transmitted reference range : 0.0 - 10.0 /100 WBCs. The refer ence range was not u sed to interpret th is result as normal/abnormal . NRBC x10^3 (test code <0.01 See_Comment [Auto mated = 3179586812) message] The s ystem which generated this result transmitted reference range : 10*3/?L. The reference range was not used to interpret this result as normal/abnormal . GRAN MAT (NEUT) % 49.8 % (test code = 770-8) IMM GRAN % (test code 0.20 % = 8549609784) LYMPH % (test code = 32.0 % 736-9) MONO % (test code = 14.3 % 5905-5) EOS % (test code = 3.0 % 713-8) BASO % (test code = 0.7 % 706-2) GRAN MAT x10^3(ANC) 2.29 10*3/uL 1.99-6.95 (test code = 9436066709) IMM GRAN x10^3 (test <0.03 0-0.06 code = 6135929369) LYMPH x10^3 (test code 1.47 10*3/uL 1.09-3.23 = 731-0) MONO x10^3 (test code 0.66 10*3/uL 0.36-1.02 = 742-7) EOS x10^3 (test code = 0.14 10*3/uL 0.06-0.53 711-2) BASO x10^3 (test code 0.03 10*3/uL 0.01-0.09 = 704-7) Lab Interpretation Abnormal (test code = 53555-2) [facility] [id number] 05:23:00 Test Item Value Reference Range Interpretation Comments MAGNESIUM (test code = 0091809705) 2.1 mg/dL 1.7-2.4 Lab Interpretation (test code = Normal 05258-3) [facility] (ID NOW RAPID TESTING)2020-03-03 04:45:00 Test Item Value Reference Range Interpretation Comments SARS-CoV-2 Rapid ID NOW Not Detected Not Detected (test code = 03637-9) GILBERTO (test code = GILBERTO) ID NOW COVID-19 Assay is an isothermal nucleic acid amplification test intended for the qualitative detection of nucleic acid from SARS-CoV-2 viral RNA in nasopharyngeal (PRODUCT SAFETY OFFICER) specimens. It is used under Emergency Use [...] indicated. Lab Interpretation Normal (test code = 83592-8) [facility]oProthrombin Time / [id number] 04:40:00 Test Item Value Reference Range Interpretation Comments PROTIME PATIENT (test See_Comment [Auto mated message] code = 5964-2) The system Flinto generated this result transmitted ref erence range: 10.1 - 1 2.6 Seconds. The re ference range was not u sed to interpret this result as normal/abnor mal. INR (test code = 6301-6) Nor mal INR <1.1; Warfarin Therap eutic range 2.0 to 3. 0 or 2.5 to 3.5, dep ending upon the indica tions. Lab Interpretation (test Normal code = 18173-3) [facility]oaPTT2020-07-11 04:40:00 Test Item Value Reference Range Interpretation Comments APTT Patient (test code = See_Comment [ Automated message] 3173-2) The system BCR Environmental h generated this result transmitted ref erence range: 26 - 36 Seconds. The re ference range was not u sed to interpret this result as normal/abnor mal. Lab Interpretation (test Normal code = 19017-4) [facility]oPhosphorus [id number] 04:31:00 Test Item Value Reference Range Interpretation Comments PHOSPHORUS (test code = 5066374376) 4.0 mg/dL 2.5-5 Lab Interpretation (test code = Normal 79788-5) [facility]oXR ABDOMEN ACUTE [id number] 02:54:09 Impression: No radiographic evidence for acute cardiopulmonary disease. No radiographic evidence forpneumoperitoneum. Marked gaseous distention of predominantly large bowel loops in the abdomenand pelvis, similar to prior CT of 02/26/2020. On that CT, there was atransition in the distal descending colon, without mass lesion or definitesigmoid volvulus appreciated. RL: 460 AFC: 66838 Indication: Diffuse abdominal pain, obstructionComparison: CT the [...] pelvis, similar to prior CT of 02/26/2020 [facility], Radiant Results Inft User -03/02/2020 9:55 PM [...] mass lesion or definitesigmoid volvulus appreciated. RL: 460AF: [id number] signed by Angeli Carrillo MD, PhD at 03/02/2020 9:54 PM [facility]oUrinalysis2020-07-11 01:50:00 Test Item Value Reference Range Interpretation Comments APPEARANCE (test code = Hazy Clear A 2290080961) COLOR (test code = Tahira Yellow A 5731505376) PH (test code = 4.8-8.0 8308911274) SP GRAVITY (test code = 1.003-1.030 2663674433) GLU U QUAL (test code = Normal Normal 4966500931) BLOOD (test code = Negative Negative 9268772061) KETONES (test code = 5 mg/dL Negative A 6228524924) PROTEIN (test code = Negative Negative 2887-8) UROBILIN (test code = 2.0 mg/dL Normal A 5690892822) BILIRUBIN (test code = Negative Negative 7059753968) NITRITE (test code = Negative Negative 0961436744) LEUK ROGER (test code = Negative Negative 2404557807) RBC/HPF (test code = See_Comment [Autom ated message] 0273914397) The system Sticky generated this result transmit dain reference range : 0 - 3 HPF. The refe rence range was not u sed to interpret th is result as normal/abnormal . WBC/HPF (test code = See_Comment [Autom ated message] 6782423509) The system Sticky generated this result transmit dain reference range : 0 - 5 HPF. The refe rence range was not u sed to interpret th is result as normal/abnormal . BACTERIA (test code = Negative Negative 5661297138) MUCOUS (test code = Slight Negative LPF A 9259013031) SQ EPITH (test code = <1 See_Comment [Auto mated message] 2844356652) The system Sticky generated this result transmit dain reference range : <=2 HPF. The refere nce range was not u sed to interpret th is result as normal/abnormal . CA OXALATE (test code = See_Comment H [Au tomated message] 7147594864) The system Sticky generated this result transmit dain reference range : <=1 HPF. The refere nce range was not u sed to interpret th is result as normal/abnormal . SPERM (test code = See_Comment [Automat ed message] 5614820094) The system Sticky generated this result transmit dain reference range : <=1 HPF. The refere nce range was not u sed to interpret th is result as normal/abnormal . Lab Interpretation (test Abnormal code = 68360-6) [facility] Metabolic Panel (NA, K, CL, CO2, GLUCOSE, BUN, CREATININE, CA)2020-03-03 01:44:00 Test Item Value Reference Range Interpretation Comments NA (test code = 140 mmol/L 135-145 3482454017) K (test code = 4.1 mmol/L 3.5-5 8888433260) CL (test code = 106 mmol/L 98-108 1871674782) CO2 TOTAL (test code = 25 mmol/L 23-31 6345552428) AGAP (test code = 2-16 2131223071) BUN (test code = 17 mg/dL 7-23 0316243347) GLUCOSE (test code = 91 mg/dL 70-110 6371284183) CREATININE (test code 1.13 mg/dL 0.6-1.25 = 2638939844) CALCIUM (test code = 9.0 mg/dL 8.6-10.6 4128785816) eGFR Calculation mL/min/1.73m2 (Non-) (test code = 7998741022) eGFR Calculation mL/min/1.73m2 () (test code = 5571850528) GILBERTO (test code = GILBERTO) Association of [...] or urine or abnormalities in imaging tests). [facility]oHepatic Function Panel (ALB, T.PRO, BILI T, BU/BC, ALT, AST, ALK PHOS)2020-03-03 01:44:00 Test Item Value Reference Range Interpretation Comments TOTAL BILI (test code = 7184961225) 0.4 mg/dL 0.1-1.1 BILI UNCON (test code = 2250050129) 0.4 mg/dL 0.1-1.1 BILI CONJ (test code = 4164825563) 0.0 mg/dL 0-0.3 T PROTEIN (test code = 7518587906) 6.3 g/dL 6.3-8.2 ALBUMIN (test code = 4364711310) 4.2 g/dL 3.5-5 ALK PHOS (test code = 4187004505) 43 U/L 34-122 ALTv (test code = 1742-6) 20 U/L 5-50 AST(SGOT) (test code = 1096017389) 26 U/L 13-40 Lab Interpretation (test code = Normal 22615-5) [facility]oCB WITH [id number] 01:37:00 Test Item Value Reference Range Interpretation Comments WBC (test code = See_Comment [Automated 7090-2) message] The sy stem which generated this result transmitted reference range : 4.20 - 10.70 10*3/?L. The reference range was not used to interpret this result as normal/abnormal . RBC (test code = See_Comment L [Automated 529-8) message] The sy stem which generated this [...] RDW-SD (test code = 45.0 fL 38.5-51.6 94723-0) RDW-CV (test code = 13.7 % 12.1-15.4 788-0) PLT (test code = See_Comment [Automated 777-3) message] The sy stem which generated this result transmitted reference range : 150 - 328 10*3/ ?L. The reference r mereidth was not used to interpret this result as normal/abnormal . MPV (test code = 11.3 fL 9.8-13 88270-0) NRBC/100 WBC (test See_Comment [Automat ed code = 9484508783) message] The system which generated this result transmitted reference range : 0.0 - 10.0 /100 WBCs. The refer ence range was not u sed to interpret th is result as normal/abnormal . NRBC x10^3 (test code <0.01 See_Comment [Auto mated = 2662509194) message] The s ystem which generated this result transmitted reference range : 10*3/?L. The reference range was not used to interpret this result as normal/abnormal . GRAN MAT (NEUT) % 53.2 % (test code = 770-8) IMM GRAN % (test code 0.20 % = 0016096796) LYMPH % (test code = 34.5 % 736-9) MONO % (test code = 9.7 % 5905-5) EOS % (test code = 1.8 % 713-8) BASO % (test code = 0.6 % 706-2) GRAN MAT x10^3(ANC) 2.69 10*3/uL 1.99-6.95 (test code = 4896636445) IMM GRAN x10^3 (test <0.03 0-0.06 code = 3039147216) LYMPH x10^3 (test code 1.74 10*3/uL 1.09-3.23 = 731-0) MONO x10^3 (test code 0.49 10*3/uL 0.36-1.02 = 742-7) EOS x10^3 (test code = 0.09 10*3/uL 0.06-0.53 711-2) BASO x10^3 (test code 0.03 10*3/uL 0.01-0.09 = 704-7) Lab Interpretation Abnormal (test code = 57130-0) [facility]aredoLactic Acid Whole [id number] 01:28:00 Test Item Value Reference Range Interpretation Comments LACTIC ACID (test code = 1.62 mmol/L 7323565517) [facility]oDRUG PANEL 2 [id number] 22:13:00 Test Item Value Reference Range Interpretation Comments AMPHET (test code = Negative Negative 9502034903) LOS U (test code = Negative Negative 3279893914) BENZO U (test code = Negative Negative 0084147600) Cocaine Metabolite (test Negative Negative code = 2104590150) METHADONE (test code = Negative Negative 3133450890) OPIATES (test code = Negative Negative 4913875898) PCP (test code = Negative Negative 9392468803) THC (test code = Negative Negative 5884964656) GILBERTO (test code = GILBERTO) Urine Drug [...] testing). Lab Interpretation (test Normal code = 97301-7) [facility]aredoTHYROID STIMULATING [id number] 19:02:00 Test Item Value Reference Range Interpretation Comments TSH (test code = See_Comment [Automated message] 1647900037) The system Sticky generated this result transmitted ref erence range: 0.45 - 4 .70 mIU/L. The refe rence range was not u sed to interpret this result as normal/abnor mal. Lab Interpretation (test Normal code = 52709-4) [facility] [id number] 18:49:00 Test Item Value Reference Range Interpretation Comments FREE T3 (test code = 5193942535) 2.56 pg/mL 2.77-5.27 L Lab Interpretation (test code = Abnormal 84524-0) [facility] [id number] 18:49:00 Test Item Value Reference Range Interpretation Comments FREE T4 (test code = See_Comment [Autom ated message] 6418500141) The system Sticky generated this result transmitted ref erence range: 0.78 - 2 .20 ng/dL:. The ref erence range was not u sed to interpret this result as normal/abnor mal. Lab Interpretation (test Normal code = 16636-9) [facility]aredoCT ABDOMEN PELVIS W [id number] 20:56:47 Persistent marked severe dilatation of the transverse colon and small bowelwithout obstructing massor mural thickening. Additionally, there isgaseous distention and dilatation of the distal bowel. These findings aregrossly unchanged compared to prior CTs. No CT evidence evidence ofvolvulus. Preliminary Report Dictated by Resident: Merritt Fontenot ?MD. Jneniffer, have reviewed this study and agree withthe [...] No focal hepatic lesions. Normal contour. Hepatomegaly, icnuvlpbr81.7 cm, in the craniocaudal dimension. Diffuse hypoattenuation [...] No focal hepatic lesions. Normal contour. Hepatomegaly, sasnikmmb40.7 cm, in the craniocaudal dimension. Diffuse hypoattenuation [...] this study and agree withthe above report. [facility]OVID[facility] (ID NOW RAPID TESTING)2020-02-26 07:03:00 Test Item Value Reference Range Interpretation Comments SARS-CoV-2 Rapid ID NOW Not Detected Not Detected (test code = 48518-4) GILBERTO (test code = GILBERTO) ID NOW COVID-19 Assay is an isothermal nucleic acid amplification test intended for the qualitative detection of nucleic acid from SARS-CoV-2 viral RNA in nasopharyngeal (PRODUCT SAFETY OFFICER) specimens. It is used under Emergency Use [...] indicated. Lab Interpretation Normal (test code = 23422-0) [facility]oXR ABDOMEN ACUTE [id number] 05:00:33 Impression: No radiographic evidence for acute cardiopulmonary disease. Marked gaseous distention ofthe colon, with a relative paucity of gas inthe distal sigmoid colon and rectum. This may reflect pseudoobstruction,but mechanical distal colonic obstruction cannot be excluded. RL: 460 AFC: 18026 Ordering physician: SABI Briggsdication: Abdominal distention Comparison: None Findings: AP view [...] in the distal sigmoid colon and rectum. [facility], Radiant Results Inft User - [...] mechanical distal colonic obstruction cannot be excluded.RL: 460AFC: [id number] signed by Angeli Carrillo MD, PhD at 02/26/2020 12:00 AMDo[facility]oBas[facility] Met[facility] (NA, K, CL, CO2, GLUCOSE, BUN, CREATININE, CA)2020-02-26 04:03:00 Test Item Value Reference Range Interpretation Comments NA (test code = 142 mmol/L 135-145 7413531748) K (test code = 4.1 mmol/L 3.5-5 0599707409) CL (test code = 107 mmol/L 98-108 9834654784) CO2 TOTAL (test code = 29 mmol/L 23-31 4060461578) AGAP (test code = 2-16 5620215617) BUN (test code = 13 mg/dL 7-23 9058917870) GLUCOSE (test code = 82 mg/dL 70-110 7617936532) CREATININE (test code 1.14 mg/dL 0.6-1.25 = 8756306447) CALCIUM (test code = 9.5 mg/dL 8.6-10.6 0697478625) eGFR Calculation mL/min/1.73m2 (Non-) (test code = 0128798117) eGFR Calculation mL/min/1.73m2 () (test code = 3482495065) GILBERTO (test code = GILBERTO) Association of [...] or urine or abnormalities in imaging tests). [facility]oHepatic Function Panel (ALB, T.PRO, BILI T, BU/BC, ALT, AST, ALK PHOS)2020-02-26 04:03:00 Test Item Value Reference Range Interpretation Comments TOTAL BILI (test code = 6965552263) 0.5 mg/dL 0.1-1.1 BILI UNCON (test code = 8423702110) 0.5 mg/dL 0.1-1.1 BILI CONJ (test code = 7479497695) 0.0 mg/dL 0-0.3 T PROTEIN (test code = 8230495894) 6.2 g/dL 6.3-8.2 L ALBUMIN (test code = 1230434852) 4.2 g/dL 3.5-5 ALK PHOS (test code = 0094525275) 40 U/L 34-122 ALTv (test code = 1742-6) 20 U/L 5-50 AST(SGOT) (test code = 7299386664) 26 U/L 13-40 Lab Interpretation (test code = Abnormal 54536-9) [facility] LaredoLipase [id number] 04:03:00 Test Item Value Reference Range Interpretation Comments LIPASE (test code = 3052984796) 57 U/L 0-220 Lab Interpretation (test code = Normal 37269-0) [facility] LaredoLactic Acid Whole [id number] 03:52:00 Test Item Value Reference Range Interpretation Comments LACTIC ACID (test code = 1.66 mmol/L 0.5-2.2 5140992247) [facility]oCB WITH [id number] 03:47:00 Test Item Value Reference Range Interpretation Comments WBC (test code = See_Comment [Automated 6890-2) message] The sy stem which generated this result transmitted reference range : 4.20 - 10.70 10*3/?L. The reference range was not used to interpret this result as normal/abnormal . RBC (test code = See_Comment L [Automated 689-8) message] The sy stem which generated this [...] RDW-SD (test code = 45.1 fL 38.5-51.6 30297-3) RDW-CV (test code = 13.7 % 12.1-15.4 788-0) PLT (test code = See_Comment [Automated 777-3) message] The sy stem which generated this result transmitted reference range : 150 - 328 10*3/ ?L. The reference r meredith was not used to interpret this result as normal/abnormal . MPV (test code = 10.7 fL 9.8-13 73228-8) NRBC/100 WBC (test See_Comment [Automat ed code = 4111481833) message] The system which generated this result transmitted reference range : 0.0 - 10.0 /100 WBCs. The refer ence range was not u sed to interpret th is result as normal/abnormal . NRBC x10^3 (test code <0.01 See_Comment [Auto mated = 0904303199) message] The s ystem which generated this result transmitted reference range : 10*3/?L. The reference range was not used to interpret this result as normal/abnormal . GRAN MAT (NEUT) % 63.1 % (test code = 770-8) IMM GRAN % (test code 0.40 % = 7100066416) LYMPH % (test code = 25.1 % 736-9) MONO % (test code = 9.9 % 5905-5) EOS % (test code = 1.1 % 713-8) BASO % (test code = 0.4 % 706-2) GRAN MAT x10^3(ANC) 3.52 10*3/uL 1.99-6.95 (test code = 0754767187) IMM GRAN x10^3 (test <0.03 0-0.06 code = 0815451690) LYMPH x10^3 (test code 1.40 10*3/uL 1.09-3.23 = 731-0) MONO x10^3 (test code 0.55 10*3/uL 0.36-1.02 = 742-7) EOS x10^3 (test code = 0.06 10*3/uL 0.06-0.53 711-2) BASO x10^3 (test code <0.03 0.01-0.09 = 704-7) Lab Interpretation Abnormal (test code = 98749-8) [facility]OMEN 1 [id number] 12:53:00 Name: DORA JOSEPH [facility] : 1970 Age/S: 50 / M [address] Unit #: [id number] Loc: [place] [address] 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 Acct: [id number] Dis Date: Status: ADM IN PHONE #: [phone] Exam Date: 02/25/2020 1038 FAX #: Reason: abdominal distention EXAMS: CPT: [id number] XR ABDOMEN 1 V 19540 Fluoro Time: DAP (Gy m2): Air Kerma (mGy): Location: B2 EXAM: ABDOMEN AP History: Abdominal distention Comparison: CT abdomen and pelvis dated 02/23/2020. Multiple prior abdominalradiographs. Findings: The lung bases are grossly clear. Redemonstrated are markedly dilated, gas-filled small and large bowel loops, filling and distending the abdomen. There is gas in the rectum. These appear progressed as prior exam with increased distention of small bowel loops in the left lower quadrant (not previously seen) The osseous structures appear normal. Impression: Redemonstrated are markedly dilated, gas-filled small and large bowel loops, filling and distending the abdomen. These appear progressed as prior exam with increased distention of small bowel loops in the left lower quadrant (not previously seen) at 1253 Reported and signed by: Sol Paige MD CC: Andre Solano; Mark Perea MD PAGE 1 Signed Report [facility] : 1970 Age/S: 50 / M [address] Unit #: [id number] Loc: [place] [address] 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 [employer] Acct: [id number] Dis Date: Status: ADM IN PHONE #: [phone] Exam Date: 02/25/2020 1036 FAX #: Reason: abdominal distention EXAMS: CPT: [id number] XR ABDOMEN 1 V 60525 Fluoro Time: DAP (Gy m2): Air Kerma (mGy): <Continued&gt ; Technologist: Nichole Dill RT(R) Trnscb Date/Time: 02/25/2020 (9683) [email or web address] Orig Print D/T: S: 02/25/2020 (9242) PAGE 2 Signed Report COMPREHENSIVE METABOLIC [id number] 08:20:00 Test Item Value Reference Range Interpretation [...] 50-136 L TOTAL (test code = ALKP) [id number] 08:20:00 Test Item Value Reference Range Interpretation Comments MAGNESIUM (test code = MAG) 2.2 MG/DL 1.8-2.4 N THYROID STIMULATING [id number] 08:20:00 Test Item Value Reference Range Interpretation Comments THYROID STIMULATING HORMONE 5.430 mcIU/ML 0.340-4.820 H (test code = TSH) CBC W/AUTO [id number] 07:55:00 Test Item Value Reference Range Interpretation [...] N NRBC#) UA RFLX MICR CULT IF [id number] 12:29:00 Test Item Value Reference Range Interpretation [...] culture: Suprapubic PainUA RFLX MICR CULT IF [id number] 12:29:00 Test Item Value Reference Range Interpretation [...] for culture: Suprapubic PainCOVID 19 Asymptomatic IH [id number] 22:09:00 Test Item Value Reference Range Interpretation [...] tent with COVID-19. - CT ABD PELVIS W/[id number] 21:10:00 Name: DORA JOSEPH [facility] : 1970 Age/S: 50 / M [address] Unit #: [id number] Loc: [place] [address] Phys: Evin Castellanos MD Acct: [id number] Dis Date: Status: REG ER PHONE #: [phone] Exam Date: 02/23/20201 FAX #: Reason: diffuse abdomen pain and distention EXAMS: CPT: [id number] CT ABD PELVIS W/CONT 99172 EXAM: - CT ABD PELVIS W/CONT LOCATION: H61 CLINICAL HISTORY/INDICATION: diffuse abdomen pain and distention COMPARISON: Multiple prior KUBs are intact to , most recent dated 02/19/2020. Abdominal CT/. TECHNIQUE: Axial CT images of the abdomen and pelvis were obtained from the diaphragm to the lesser trochanter with IV contrast administration.Coronal and sagittal reformations were reconstructed from the axial data set. Postcontrast images were acquired in the portal venous phase This examination was performed according to our departmental dose optimization program, which includes automated exposure control, adjustment of the mA and/or kV according to patient size, and/or use of iterative reconstruction technique. FINDINGS: LOWER THORAX: Clear. LIVER: No focal hepatic lesions or intrahepatic biliary dilatation. GALLBLADDER/BILIARY SYSTEM: Contracted gallbladder. PANCREAS: Unremarkable. SPLEEN: No splenomegaly or focal lesions. ADRENALS:No adrenal nodules. KIDNEYS/URETERS: No hydronephrosis, stones, or solid mass lesions. VESSELS: No AAA. Patent portal vein. LYMPH NODES: No lymphadenopathy. PERITONEUM / RETROPERITONEUM: No free air or fluid. GI TRACT: No findings to suggest small bowel obstruction. There is similar chronic distention of the colon, which is greatest at the transverse segment. The transverse colon measures up to 11.8cm. No obstructing mass, strictures or volvulus seen. Colonic dilatation is similar when compared to multiple prior KUBs as well as the 12/12/2019 PAGE 1 Signed Report (CONTINUED) Name: DORA JOSEPH [facility] : 1970 Age/S: 50 / M [address] [facility] Unit #: [id number] Loc: [place] [address] Phys: Evin Castellanos MD Acct: [id number] Dis Date: Status: REG ER PHONE #: [phone] Exam Date: 02/23/20202047 FAX #: Reason: diffuse abdomen pain and distention EXAMS: CPT: [id number] CTABD PELVIS W/CONT 21303 <Continued> CT. No bowel wall thickening or [...] No evidence of small bowel obstruction. at 0 Reported and signed by: Marybel José M.D. CC: Susana Meza NP; Carl Luevano MD Technologist:Rudy Zuniga, RT(R)(CT)(MRI) CTDI: DLP: Trnscb Date/Time: 02/23/2020 (2109) t.[email or web address].[email or web address] Orig Print D/T: S: 02/23/2020 (2112) PAGE 2 Signed Report- XR CHEST 1 [id number] 21:03:00 [facility] : 1970 Age/S: 50 / M [address] Unit #: [id number] Loc: [place] [address] Phys: Evin Castellanos MD Acct: [id number] Dis Date: Status: REG ER PHONE #: [phone] Exam Date: 02/23/20202055 FAX #: Reason: Code Sepsis EXAMS: CPT: [id number] XR CHEST 1 V 98255 Fluoro Time: DAP (Gy m2): Air Kerma (mGy): DICTATION LOCATION: 8 HISTORY: Male, 50 years of age with Code Sepsis, abdomen pain EXAM: CHEST X-RAY, ONE VIEW COMPARISON: 12/13/2019 COMMENT: Frontal view of the chest is provided. Left diaphragm is chronically elevated. There is chronic colonic air distention which has been present since baseline chest and abdomen x-rays performed 02/27/2013.No focal infiltrate, consolidation, mass lesion, or effusion is seen. Cardiac silhouette is within normal limits. No acute bony abnormalities. IMPRESSION: 1. No acute cardiopulmonary disease. 2. Chronic colonic air distention unchanged. at 2103 Reported and signed by: Monica Quijano MD CC: Susana Meza NP; Carl Luevano MD PAGE 1 Signed Report Name: [facility] : 1970 Age/S: 50 / M [id number] Unit #: [id number] Loc: [place] [address] Phys: Evin Castellanos MD Acct: [id number] Dis Date: Status: REG ER PHONE #: [phone] Exam Date: 02/23/20202055 FAX #: Reason: Code Sepsis EXAMS: CPT:[id number] XR CHEST 1 V 28195 Fluoro Time: DAP (Gy m2): Air Kerma [...] 8.5-10.1 N Completed by Nursing: NOHEPATIC FUNCTION [id number] 20:02:00 Test Item Value Reference Range Interpretation [...] N code = ALKP) Completed by Nursing: [id number] 20:02:00 Test Item Value Reference Range Interpretation Comments LIPASE (test code = LIP) 97 Unit/L 114-286 L Completed by Nursing: [id number]-[id number] 20:02:00 Test Item Value Reference Range Interpretation [...] brittani yby method. Completed by Nursing: NOLACTIC [id number] 19:59:00 Test Item Value Reference Range Interpretation Comments LACTIC ACID (test code = LACT) 1.2 mmol/L 0.4-2.0 N CBC W/AUTO [id number] 19:46:00 Test Item Value Reference Range Interpretation [...] CRITERIA = MDIFF) - XR ABDOMEN 2 [id number] 06:22:00 Name: DORA JOSEPH [facility] : 1970 Age/S: 50 / M [address] Unit #: [id number] Loc: [place] [address] Phys: Leonidas Robertson MD Acct: [id number] Dis Date: Status: ADM IN PHONE #: [phone] Exam Date: 02/19/2020 0440 FAX #: Reason: megacolon EXAMS: CPT: [id number] XR ABDOMEN 2 V 78169 Fluoro Time: DAP (Gy m2): Air Kerma [...] seen within the abdomen. Since prior imaging there is been interval removal of drainage catheter. IMPRESSION: Marked dilation of colonic loops as well as small bowel loops. No free intraperitoneal air. at 0622 Reported and signed by: David Rodríguez M.D. CC: Leonidas Robertson MD; Coco Nova MD PAGE 1 Signed Report Name: DORA JOSEPH [facility] : 1970 Age/S: 50 / M [address] [address] Unit #: [id number] Loc: [place] [address] Phys: Leonidas Robertson MD Acct: [id number] Dis Date: Status: ADM IN PHONE #: [phone] Exam Date: 02/19/2020 0440 FAX #: Reason: megacolon EXAMS: CPT: [id number] XR ABDOMEN 2 V 61957 Fluoro Time: DAP (Gy m2): Air Kerma (mGy): <Continued> Technologist: Carrie Barnett, RT(R)(CT) Trnscb Date/Time: 02/19/2020 (621) [id number] Orig Print D/T:S: 02/19/2020 (624) PAGE 2 Signed ReportBASIC METABOLIC [id number] 05:52:00 Test Item Value Reference Range Interpretation [...] CA) 8.5 MG/DL 8.5-10.1 N CBC W/AUTO [id number] 05:40:00 Test Item Value Reference Range Interpretation [...] NO DIFF/SCN CRITERIA = MDIFF) BASIC METABOLIC [id number] 06:52:00 Test Item Value Reference Range Interpretation [...] CA) 8.3 MG/DL 8.5-10.1 L CBC W/AUTO [id number] 06:39:00 Test Item Value Reference Range Interpretation [...] DIFF/SCN CRITERIA = MDIFF) Coronavirus 2019 nCoV [id number] 05:35:00 Test Item Value Reference Range Interpretation [...] considered in t he context of apat iegisselle's recent exposure s, history, presen ce of clinicalsigns a nd symptoms consis tent with COVID-19. BASIC METABOLIC PANEL (NA, K, CL, CO2, GLUCOSE, BUN, CREATININE, CA)2020-02-03 16:58:00 Test Item Value Reference Range Interpretation Comments NA (test code = 139 mmol/L 135-145 2448871148) K (test code = 4.3 mmol/L 3.5-5 5647794931) CL (test code = 105 mmol/L 98-108 1779390395) CO2 TOTAL (test code = 30 mmol/L 23-31 4591048605) AGAP (test code = 2-16 0349797144) BUN (test code = 6 mg/dL 7-23 L 3931334651) GLUCOSE (test code = 94 mg/dL 70-110 5982639396) CREATININE (test code = 1.07 mg/dL 0.6-1.25 3765306565) CALCIUM (test code = 9.3 mg/dL 8.6-10.6 2967546346) eGFR Calculation mL/min/1.73m2 (Non-) (test code = 7398609805) eGFR Calculation mL/min/1.73m2 () (test code = 2984602504) GILBERTO (test code = GILBERTO) Association of [...] tests). Lab Interpretation Abnormal (test code = 78733-9) [facility] 16:58:00 Test Item Value Reference Range Interpretation Comments MAGNESIUM (test code = 1883199711) 2.0 mg/dL 1.7-2.4 Lab Interpretation (test code = Normal 28899-9) [facility] [id number] 17:02:411. Interval worsening of air distended loops [...] with cecum measuring up to 15 cm. [facility] WITH [id number] 07:20:00 Test Item Value Reference Range Interpretation [...] RDW-SD (test code = 46.5 fL 38.5-51.6 37146-7) RDW-CV (test code = 13.9 % 12.1-15.4 788-0) PLT (test code = See_Comment L [Automated 777-3) message] The sy stem which generated this result transmitted reference range : 150 - 328 10*3/ ?L. The reference r meredith was not used to interpret this result as normal/abnormal . MPV (test code = 10.7 fL 9.8-13 79076-7) NRBC/100 WBC (test See_Comment [Automat ed code = 7553196687) message] The system which generated this result transmitted reference range : 0.0 - 10.0 /100 WBCs. The refer ence range was not u sed to interpret th is result as normal/abnormal . NRBC x10^3 (test code <0.01 See_Comment [Auto mated = 2010051758) message] The s ystem which generated this result transmitted reference range : 10*3/?L. The reference range was not used to interpret this result as normal/abnormal . GRAN MAT (NEUT) % 48.6 % (test code = 770-8) IMM GRAN % (test code 0.20 % = 1744705560) LYMPH % (test code = 39.6 % 736-9) MONO % (test code = 8.4 % 5905-5) EOS % (test code = 2.7 % 713-8) BASO % (test code = 0.5 % 706-2) GRAN MAT x10^3(ANC) 1.96 10*3/uL 1.99-6.95 L (test code = 3829317623) IMM GRAN x10^3 (test <0.03 0-0.06 code = 6603248222) LYMPH x10^3 (test code 1.60 10*3/uL 1.09-3.23 = 731-0) MONO x10^3 (test code 0.34 10*3/uL 0.36-1.02 L = 742-7) EOS x10^3 (test code = 0.11 10*3/uL 0.06-0.53 711-2) BASO x10^3 (test code <0.03 0.01-0.09 = 704-7) Lab Interpretation Abnormal (test code = 57472-0) [facility] METABOLIC PANEL (NA, K, CL, CO2, GLUCOSE, BUN, CREATININE, CA)2020-01-31 06:32:00 Test Item Value Reference Range Interpretation Comments NA (test code = 138 mmol/L 135-145 0975880163) K (test code = 4.2 mmol/L 3.5-5 Slight 4197394313) hemolysis CL (test code = 108 mmol/L 98-108 6426972560) CO2 TOTAL (test code 22 mmol/L 23-31 L = 6739500475) AGAP (test code = 2-16 6902223959) BUN (test code = 7 mg/dL 7-23 Slight 6943978102) hemolysis GLUCOSE (test code = 92 mg/dL 70-110 8881899432) CREATININE (test code 1.02 mg/dL 0.6-1.25 = 6430271578) CALCIUM (test code = 8.9 mg/dL 8.6-10.6 1285947854) eGFR Calculation mL/min/1.73m2 (Non-) (test code = 4209797484) eGFR Calculation mL/min/1.73m2 () (test code = 5251226954) GILBERTO (test code = GILBERTO) Association of [...] tests). Lab Interpretation Abnormal (test code = 51881-8) [facility] WITH [id number] 11:00:00 Test Item Value Reference Range Interpretation Comments WBC (test code = See_Comment L [Automated 2926-2) message] The sy stem which generated this [...] RDW-SD (test code = 48.7 fL 38.5-51.6 27256-9) RDW-CV (test code = 14.4 % 12.1-15.4 788-0) PLT (test code = See_Comment L [Automated 777-3) message] The sy stem which generated this result transmitted reference range : 150 - 328 10*3/ ?L. The reference r meredith was not used to interpret this result as normal/abnormal . MPV (test code = 10.7 fL 9.8-13 98507-9) IPF % (test code = 5.1 % 1.2-10.7 Platelet count 0231422514) measured by fluorescence method. NRBC/100 WBC (test See_Comment [Automat ed code = 1140456555) message] The system which generated this result transmitted reference range : 0.0 - 10.0 /100 WBCs. The refer ence range was not u sed to interpret th is result as normal/abnormal . NRBC x10^3 (test code <0.01 See_Comment [Auto mated = 4438674648) message] The s ystem which generated this result transmitted reference range : 10*3/?L. The reference range was not used to interpret this result as normal/abnormal . SEG % (test code = 53 % 33-76 41721-4) BAND % (test code = 1 % 0-1 06913-2) LYMPH % (test code = 39 % 14-54 07879-0) MONO % (test code = 4 % 0-4 55353-5) EOS % (test code = 3 % 0-3 53582-7) ANC (test code = 1.93 10*3/uL 1.99-6.95 L 2589059503) Lab Interpretation Abnormal (test code = 06227-6) [facility] Metabolic Panel (NA, K, CL, CO2, GLUCOSE, BUN, CREATININE, CA)2020-01-29 10:23:00 Test Item Value Reference Range Interpretation Comments NA (test code = 138 mmol/L 135-145 8750352671) K (test code = 4.0 mmol/L 3.5-5 9407746045) CL (test code = 109 mmol/L 98-108 H 8040350204) CO2 TOTAL (test code = 27 mmol/L 23-31 2280698183) AGAP (test code = 2-16 8137335739) BUN (test code = 16 mg/dL 7-23 8286073189) GLUCOSE (test code = 81 mg/dL 70-110 2540864486) CREATININE (test code = 1.14 mg/dL 0.6-1.25 1439807657) CALCIUM (test code = 8.6 mg/dL 8.6-10.6 0178734320) eGFR Calculation mL/min/1.73m2 (Non-) (test code = 0942372449) eGFR Calculation mL/min/1.73m2 () (test code = 7251728462) GILBERTO (test code = GILBERTO) Association of [...] tests). Lab Interpretation Abnormal (test code = 07722-9) [facility] [id number] 04:27:00 Test Item Value Reference Range Interpretation Comments SARS-CoV-2 Rapid ID NOW Not Detected Not Detected (test code = 48777-5) GILBERTO (test code = GILBERTO) ID NOW COVID-19 Assay is an isothermal nucleic acid amplification test intended for the qualitative detection of nucleic acid from SARS-CoV-2 viral RNA in nasopharyngeal (PRODUCT SAFETY OFFICER) specimens. It is used under Emergency Use [...] indicated. Lab Interpretation Normal (test code = 67665-3) [facility] Whole [id number] 04:10:00 Test Item Value Reference Range Interpretation Comments LACTIC ACID (test code = 1.74 mmol/L 0.5-2.2 0407992206) [facility] (ID NOW RAPID TESTING)2020-01-29 02:17:00 Test Item Value Reference Range Interpretation Comments SARS-CoV-2 Rapid ID NOW Not Detected Not Detected (test code = 13062-9) GILBERTO (test code = GILBERTO) ID NOW COVID-19 Assay is an isothermal nucleic acid amplification test intended for the qualitative detection of nucleic acid from SARS-CoV-2 viral RNA in nasopharyngeal (PRODUCT SAFETY OFFICER) specimens. It is used under Emergency Use [...] indicated. Lab Interpretation Normal (test code = 78385-3) [facility]2020-06-07 02:14:00 Test Item Value Reference Range Interpretation Comments APPEARANCE (test code = Clear Clear 5256973650) COLOR (test code = Dark Yellow Yellow A 4969176442) PH (test code = 4.8-8.0 9162343908) SP GRAVITY (test code = 1.003-1.030 H 1222373023) GLU U QUAL (test code = Normal Normal 8128825132) BLOOD (test code = 1+ Negative A 2945936832) KETONES (test code = 5 mg/dL Negative A 9622801465) PROTEIN (test code = Negative Negative 2887-8) UROBILIN (test code = Normal Normal 1820164111) BILIRUBIN (test code = Negative Negative 4629775726) NITRITE (test code = Negative Negative 8586058348) LEUK ROGER (test code = Negative Negative 4493937969) RBC/HPF (test code = See_Comment H [Autom ated 9694071506) message] The sy stem which generated this result transmitted reference range : 0 - 3 HPF. The reference range was not used to interpret this result as normal/abnormal . WBC/HPF (test code = See_Comment [Autom ated 2971814534) message] The sy stem which generated this result transmitted reference range : 0 - 5 HPF. The reference range was not used to interpret this result as normal/abnormal . BACTERIA (test code = Moderate Negative A 7556623333) MUCOUS (test code = Slight Negative LPF A 7668456281) AMORPHOUS (test code = Rare Rare HPF 0389198685) SQ EPITH (test code = <1 See_Comment [Auto mated 2306858424) message] The sy stem which generated this result transmitted reference range : <=2 HPF. The reference range was not used to interpret this result as normal/abnormal . CA OXALATE (test code = See_Comment H [Au tomated 7136537768) message] The sy stem which generated this result transmitted reference range : <=1 HPF. The reference range was not used to interpret this result as normal/abnormal . HYAL CAST (test code = See_Comment H [Aut omated 8679533041) message] The sy stem which generated this result transmitted reference range : <=2 LPF. The reference range was not used to interpret this result as normal/abnormal . ASCORBIC ACID (test Negative code = 3323704847) Lab Interpretation Abnormal (test code = 07839-7) [facility] PELVIS W [id number] 00:25:08Persistent marked and severe dilatation of the [...] is essentially stable compared to prior examination. [facility] Metabolic Panel (NA, K, CL, CO2, GLUCOSE, BUN, CREATININE, CA)2020-01-28 23:38:00 Test Item Value Reference Range Interpretation Comments NA (test code = 143 mmol/L 135-145 7653662616) K (test code = 4.2 mmol/L 3.5-5 7432859079) CL (test code = 111 mmol/L 98-108 H 9289393588) CO2 TOTAL (test code = 28 mmol/L 23-31 1727715525) AGAP (test code = 2-16 9718620774) BUN (test code = 15 mg/dL 7-23 4239984004) GLUCOSE (test code = 68 mg/dL 70-110 L 1889028507) CREATININE (test code = 1.32 mg/dL 0.6-1.25 H 3410162575) CALCIUM (test code = 9.0 mg/dL 8.6-10.6 6144395348) eGFR Calculation mL/min/1.73m2 (Non-) (test code = 1201805800) eGFR Calculation mL/min/1.73m2 () (test code = 1750016613) GILBERTO (test code = GILBERTO) Association of [...] tests). Lab Interpretation Abnormal (test code = 77546-8) [facility] (ALB, T.PRO, BILI T, BU/BC, ALT, AST, ALK PHOS)2020-01-28 23:38:00 Test Item Value Reference Range Interpretation Comments TOTAL BILI (test code = 8816830524) 0.6 mg/dL 0.1-1.1 BILI UNCON (test code = 3629048882) 0.6 mg/dL 0.1-1.1 BILI CONJ (test code = 5351383399) 0.0 mg/dL 0-0.3 T PROTEIN (test code = 4745149825) 5.7 g/dL 6.3-8.2 L ALBUMIN (test code = 7249681332) 3.8 g/dL 3.5-5 ALK PHOS (test code = 0715470389) 37 U/L 34-122 ALTv (test code = 1742-6) 23 U/L 5-50 AST(SGOT) (test code = 1578038141) 25 U/L 13-40 Lab Interpretation (test code = Abnormal 38524-8) [facility]ared[facility]ip[facility] [id number] 23:38:00 Test Item Value Reference Range Interpretation Comments LIPASE (test code = 3042493382) 62 U/L 0-220 Lab Interpretation (test code = Normal 57336-3) [facility] WITH [id number] 23:29:00 Test Item Value Reference Range Interpretation [...] RDW-SD (test code = 47.5 fL 38.5-51.6 88973-7) RDW-CV (test code = 14.3 % 12.1-15.4 788-0) PLT (test code = See_Comment [Automated 777-3) message] The sy stem which generated this result transmitted reference range : 150 - 328 10*3/ ?L. The reference r meredith was not used to interpret this result as normal/abnormal . MPV (test code = 10.6 fL 9.8-13 78629-6) NRBC/100 WBC (test See_Comment [Automat ed code = 6103222894) message] The system which generated this result transmitted reference range : 0.0 - 10.0 /100 WBCs. The refer ence range was not u sed to interpret th is result as normal/abnormal . NRBC x10^3 (test code <0.01 See_Comment [Auto mated = 1725242105) message] The s ystem which generated this result transmitted reference range : 10*3/?L. The reference range was not used to interpret this result as normal/abnormal . GRAN MAT (NEUT) % 50.1 % (test code = 770-8) IMM GRAN % (test code 0.20 % = 0501219970) LYMPH % (test code = 34.7 % 736-9) MONO % (test code = 12.5 % 5905-5) EOS % (test code = 1.8 % 713-8) BASO % (test code = 0.7 % 706-2) GRAN MAT x10^3(ANC) 2.28 10*3/uL 1.99-6.95 (test code = 5458595850) IMM GRAN x10^3 (test <0.03 0-0.06 code = 6099773607) LYMPH x10^3 (test code 1.58 10*3/uL 1.09-3.23 = 731-0) MONO x10^3 (test code 0.57 10*3/uL 0.36-1.02 = 742-7) EOS x10^3 (test code = 0.08 10*3/uL 0.06-0.53 711-2) BASO x10^3 (test code 0.03 10*3/uL 0.01-0.09 = 704-7) Lab Interpretation Abnormal (test code = 10769-3) [facility] METABOLIC PANEL (NA, K, CL, CO2, GLUCOSE, BUN, CREATININE, CA)2020-01-26 18:34:00 Test Item Value Reference Range Interpretation Comments NA (test code = 138 mmol/L 135-145 1336545054) K (test code = 3.7 mmol/L 3.5-5 0800812660) CL (test code = 108 mmol/L 98-108 3032784044) CO2 TOTAL (test code = 25 mmol/L 23-31 7886888553) AGAP (test code = 2-16 5728073844) BUN (test code = 9 mg/dL 7-23 2384584778) GLUCOSE (test code = 107 mg/dL 70-110 7966309648) CREATININE (test code 0.96 mg/dL 0.6-1.25 = 5149497366) CALCIUM (test code = 8.7 mg/dL 8.6-10.6 7671419667) eGFR Calculation mL/min/1.73m2 (Non-) (test code = 3841913528) eGFR Calculation mL/min/1.73m2 () (test code = 4906262694) GILBERTO (test code = GILBERTO) Association of [...] or urine or abnormalities in imaging tests). [facility] [id number] 08:33:00 Test Item Value Reference Range Interpretation Comments MAGNESIUM (test code = 1.9 mg/dL 1.7-2.4 Sligh t hemolysis 4358433253) Lab Interpretation (test Normal code = 46587-1) [facility] [id number] 06:18:53 Redemonstration of marked gaseous distention of the transverse anddescending colon. RL: 460 AFC: 02625 Ordering physician: HELENE GRIFFIN INDICATION: Abdominal pain [...] gaseous distention of the transverse anddescending colon.RL: 460AFC: 12867Liwavpfuwkmazl signed by Angeli Carrillo MD, PhD at 01/26/2020 1:18 [facility] Phosphorus Tosui0634-01-00 10:11:00 Test Item Value Reference Range Interpretation Comments PHOSPHORUS (test code = 8160989296) 3.9 mg/dL 2.5-5 Lab Interpretation (test code = Normal 22282-4) [facility] (ID NOW RAPID TESTING)2020-01-25 05:12:00 Test Item Value Reference Range Interpretation Comments SARS-CoV-2 Rapid ID NOW Not Detected Not Detected (test code = 93031-5) GILBERTO (test code = GILBERTO) ID NOW COVID-19 Assay is an isothermal nucleic acid amplification test intended for the qualitative detection of nucleic acid from SARS-CoV-2 viral RNA in nasopharyngeal (PRODUCT SAFETY OFFICER) specimens. It is used under Emergency Use [...] indicated. Lab Interpretation Normal (test code = 02307-8) [facility] Acid Whole [id number] 04:34:00 Test Item Value Reference Range Interpretation Comments LACTIC ACID (test code = 0.89 mmol/L 0.5-2.2 8721528331) [facility] ABD[facility] PELVIS W [id number] 02:47:02Impression: Marked distention and dilatation of the [...] bowel as well. Rectal tubedecompression may be considered.[facility]inalysis2020-06-03 01:51:00 Test Item Value Reference Range Interpretation Comments APPEARANCE (test code = Hazy Clear A 0504439433) COLOR (test code = Yellow Yellow 8983508084) PH (test code = 4.8-8.0 1015614503) SP GRAVITY (test code = 1.003-1.030 0107140857) GLU U QUAL (test code = Normal Normal 0635491871) BLOOD (test code = Negative Negative 8187860416) KETONES (test code = Negative Negative 3678666316) PROTEIN (test code = Negative Negative 2887-8) UROBILIN (test code = Normal Normal 2227988874) BILIRUBIN (test code = Negative Negative 1032057190) NITRITE (test code = Negative Negative 8475863124) LEUK ROGER (test code = Negative Negative 8903726339) RBC/HPF (test code = See_Comment H [Autom ated message] 9370685293) The system Sticky generated this result transmitted ref erence range: 0 - 3 HP F. The reference range was not used to int erpret this result as normal/abnormal . WBC/HPF (test code = See_Comment [Autom ated message] 8508745012) The system Sticky generated this result transmitted ref erence range: 0 - 5 HP F. The reference range was not used to int erpret this result as normal/abnormal . BACTERIA (test code = Negative Negative 3963423917) SQ EPITH (test code = <1 See_Comment [Auto mated message] 4869928001) The system Sticky generated this result transmitted ref erence range: <=2 HPF. The reference range was not used to int erpret this result as normal/abnormal . CA OXALATE (test code = See_Comment H [Au tomated message] 1044881920) The system Sticky generated this result transmitted ref erence range: <=1 HPF. The reference range was not used to int erpret this result as normal/abnormal . Lab Interpretation (test Abnormal code = 98426-0) [facility] Metabolic Panel (NA, K, CL, CO2, GLUCOSE, BUN, CREATININE, CA)2020-01-25 01:01:00 Test Item Value Reference Range Interpretation Comments NA (test code = 139 mmol/L 135-145 5658533383) K (test code = 4.6 mmol/L 3.5-5 Slight hemoly sis 4688291464) CL (test code = 107 mmol/L 98-108 7295533805) CO2 TOTAL (test 26 mmol/L 23-31 code = 1339073349) AGAP (test code = 2-16 5835252704) BUN (test code = 23 mg/dL 7-23 Slight hemo lysis 8014280308) GLUCOSE (test code 94 mg/dL 70-110 = 2608278861) CREATININE (test 1.13 mg/dL 0.6-1.25 code = 2479914149) CALCIUM (test code 8.9 mg/dL 8.6-10.6 = 8959399241) eGFR Calculation mL/min/1.73m2 (Non-) (test code = 1829805618) eGFR Calculation mL/min/1.73m2 () (test code = 0539306368) GILBERTO (test code = Association of GILBERTO) [...] or urine or abnormalities in imaging tests). [facility] (ALB, T.PRO, BILI T, BU/BC, ALT, AST, ALK PHOS)2020-01-25 01:01:00 Test Item Value Reference Range Interpretation Comments TOTAL BILI (test code = 6967067846) 0.7 mg/dL 0.1-1.1 BILI UNCON (test code = 2729935319) 0.6 mg/dL 0.1-1.1 BILI CONJ (test code = 8213903072) 0.0 mg/dL 0-0.3 T PROTEIN (test code = 0128149247) 6.2 g/dL 6.3-8.2 L ALBUMIN (test code = 9160360157) 4.1 g/dL 3.5-5 ALK PHOS (test code = 3496449844) 46 U/L 34-122 ALTv (test code = 1742-6) 27 U/L 5-50 AST(SGOT) (test code = 1198914451) 31 U/L 13-40 Lab Interpretation (test code = Abnormal 11051-0) [facility] [id number] 01:01:00 Test Item Value Reference Range Interpretation Comments LIPASE (test code = 7347603485) 246 U/L 0-220 H Lab Interpretation (test code = Abnormal 89577-9) [facility] WITH [id number] 00:49:00 Test Item Value Reference Range Interpretation Comments WBC (test code = See_Comment [Automated 3990-2) message] The sy stem which generated this [...] RDW-SD (test code = 46.8 fL 38.5-51.6 20308-4) RDW-CV (test code = 14.2 % 12.1-15.4 788-0) PLT (test code = See_Comment [Automated 777-3) message] The sy stem which generated this result transmitted reference range : 150 - 328 10*3/ ?L. The reference r meredith was not used to interpret this result as normal/abnormal . MPV (test code = 10.7 fL 9.8-13 86370-7) NRBC/100 WBC (test See_Comment [Automat ed code = 3675690098) message] The system which generated this result transmitted reference range : 0.0 - 10.0 /100 WBCs. The refer ence range was not u sed to interpret th is result as normal/abnormal . NRBC x10^3 (test code <0.01 See_Comment [Auto mated = 2585873479) message] The s ystem which generated this result transmitted reference range : 10*3/?L. The reference range was not used to interpret this result as normal/abnormal . GRAN MAT (NEUT) % 56.9 % (test code = 770-8) IMM GRAN % (test code 0.20 % = 2611648342) LYMPH % (test code = 31.2 % 736-9) MONO % (test code = 9.7 % 5905-5) EOS % (test code = 1.6 % 713-8) BASO % (test code = 0.4 % 706-2) GRAN MAT x10^3(ANC) 2.86 10*3/uL 1.99-6.95 (test code = 0247392105) IMM GRAN x10^3 (test <0.03 0-0.06 code = 2059338238) LYMPH x10^3 (test code 1.57 10*3/uL 1.09-3.23 = 731-0) MONO x10^3 (test code 0.49 10*3/uL 0.36-1.02 = 742-7) EOS x10^3 (test code = 0.08 10*3/uL 0.06-0.53 711-2) BASO x10^3 (test code <0.03 0.01-0.09 = 704-7) Lab Interpretation Abnormal (test code = 29081-9) [facility] ABDOMEN 1 [id number] 07:32:00 Name: DORA JOSEPH [facility] : 1970 Age/S: 49 / M [address] [address] Unit #: [id number] Loc: [place] [address] Phys: Jay Mayo MD Acct: [id number] Dis Date: Status: ADMIN PHONE #: [phone] Exam Date: 01/10/2020 0658 FAX #: Reason: follow up colonic ileus EXAMS: CPT: [id number] XR ABDOMEN 1 V 09390 Fluoro Time: DAP (Gy m2): Air Kerma (mGy): EXAM: - XR ABDOMEN 1 V HISTORY: follow up colonic ileus Location code:C3 COMPARISON: 01/09/2020 FINDINGS: 3 views of the abdomen are provided. Drainage catheter about the left upper quadrant is seen. Severe gaseous distention of loops of colon persist without air-fluid levels. Enteric tube is no longer visualized. IMPRESSION:1. Severe colonic distention is unchanged. Electronically Signed by Marcello Santacruz MD on 01/10/2020 at 0732 Reported and signed by: Marcello Santacruz MD CC: Jay Mayo MD; Mark Perea MD PAGE 1 Signed Report Name: DORA JOSEPH [facility] : 1970 Age/S: 49 / M [address] [address] Unit #: [id number] Loc: [place] [address] Phys: Jay Mayo MD Acct: [id number] Dis Date: Status: ADM IN PHONE #: [phone] Exam Date: 01/10/2020 0658 FAX #: Reason: follow up colonic ileus EXAMS: CPT: [id number] XR ABDOMEN 1 V 50039 Fluoro Time: DAP (Gy m2): Air Kerma (mGy): <Continued> Technologist: Alexander De Leon, RT(R)(CT) Trnscb Date/Time: 01/10/2020 (0732) tDARWINR.[email or web address] Orig Print D/T: S: 01/10/2020 (0736) PAGE 2 Signed ReportCOMPREHENSIVE METABOLIC [id number] 05:56:00 Test Item Value Reference Range Interpretation [...] TOTAL (test code = ALKP) CBC W/AUTO [id number] 05:42:00 Test Item Value Reference Range Interpretation [...] = NO DIFF/SCN CRITERIA MDIFF) BASIC METABOLIC [id number] 06:59:00 Test Item Value Reference Range Interpretation [...] code = CA) 8.5 MG/DL 8.5-10.1 N [id number] 06:59:00 Test Item Value Reference Range Interpretation Comments MAGNESIUM (test code = MAG) 2.2 MG/DL 1.8-2.4 PROTHROMBIN [id number] 06:39:00 Test Item Value Reference Range Interpretation Comments PT PATIENT (test code = PTP) 13.1 SECONDS 9.3-12.9 H INTERNATIONAL NORMAL RATIO 1.16 INR Unit 0.8-1.2 N (test code = INR) CBC W/AUTO [id number] 06:22:00 Test Item Value Reference Range Interpretation [...] DIFF/SCN CRITERIA MDIFF) - XR ABDOMEN 1 [id number] 05:39:00 Name: DORA JOSEPH [facility] : 1970 Age/S: 49 / M [address] Unit #: [id number] Loc: [place] [address] 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 [facility] Acct: [id number] Dis Date: Status: ADM IN PHONE #: [phone] Exam Date: 01/09/2020 05 FAX #: Reason: colonic ileus/obstruction EXAMS: CPT: [id number] XR ABDOMEN 1 V 02262 Fluoro Time: DAP (Gy m2): Air Kerma (mGy): Exam: KUB. Location: H 12 History: colonic ileus/obstruction COMPARISON: 01/08/2020 Findings: A supine view of the abdomen demonstrates no change has occurred in the dilatation of the distal colon. No organomegaly, abnormal massesor calcifications are seen. No pneumatosis or free air is present. Impression: Stable abdomen. at 0539 Reported and signed by: Rosibel Do M.D. CC: Andre Solano; Mark Perea MD PAGE 1 Signed Report Name: DORA JOSEPH [facility] : 1970 Age/S: 49 / M [address] [address] Unit #: [id number] Loc: [place] [address] 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 Acct: [id number] Dis Date: Status: ADM IN PHONE #: [phone] Date: 01/09/2020522 FAX #: Reason: colonic ileus/obstruction EXAMS: CPT: [id number] XR ABDOMEN 1 V 27033 Fluoro Time: DAP (Gy m2): Air Kerma (mGy): <Continued> Technologist: Carrie Barnett, RT(R)(CT) Trnscb Date/Time: 01/09/2020 (0539) tKARTIK Orig Print D/T: S: 01/09/2020 (0542) PAGE 2 Signed ReportCoronavirus 2018 nCoV [id number] 22:38:00 Test Item Value Reference Range Interpretation Comments Coronavirus 2019 nCoV Bedside (test Negative Negative code = [id number]) Emergent procedure? YESCoronavirus 2019 nCoV [id number] 22:38:00 Test Item Value Reference Range Interpretation Comments Coronavirus 2019 nCoV Bedside (test Negative Negative code = [id number]) Emergent procedure? YESBASIC METABOLIC [id number] 18:42:00 Test Item Value Reference Range Interpretation [...] CA) 8.5 MG/DL 8.5-10.1 N CBC W/AUTO [id number] 10:50:00 Test Item Value Reference Range Interpretation [...] = NO DIFF/SCN CRITERIA MDIFF) COMPREHENSIVE METABOLIC [id number] 10:46:00 Test Item Value Reference Range Interpretation [...] 50-136 N TOTAL (test code = ALKP) [id number] 10:46:00 Test Item Value Reference Range Interpretation Comments MAGNESIUM (test code = MAG) 2.6 MG/DL 1.8-2.4 H COMPREHENSIVE METABOLIC [id number] 10:34:00 Test Item Value Reference Range Interpretation [...] TOTAL (test Unit/L 50-136 code = ALKP) [id number] 10:34:00 Test Item Value Reference Range Interpretation Comments MAGNESIUM (test code = MAG) MG/DL 1.8-2.4 - XR ABDOMEN 1 [id number] 08:28:00 Name: DORA JOSEPH [facility] : 1970 Age/S: 49 / M [address] [address] Unit #: [id number] Loc: [place] [address] Phys: Yas Edwards MD Acct: [id number] Dis Date: Status: ADM IN PHONE #: [phone] Exam Date: 01/08/2020509 FAX #: Reason: ileus EXAMS: CPT: [id number] XR ABDOMEN 1 V 60575 Fluoro Time: DAP (Gy m2): Air Kerma [...] PAGE 1 Signed Report Name: DORA JOSEPH [facility] : 1970 Age/S: 49 / M [address] [address] Unit #: [id number] Loc: [place] [address] Phys: Yas Edwards MD Acct: [id number] Dis Date: Status: ADM IN PHONE #: [phone] Exam Date: 01/08/2020 05 FAX #: Reason: ileus EXAMS: CPT: [id number] XR ABDOMEN 1 V 44349 Fluoro Time: DAP (Gy m2): Air Kerma (mGy): <C ontinued> Technologist: Carrie Barnett, RT(R)(CT); ... Trnscb Date/Time: 01/08/2020 (827) tJAQUELINE Orig Print D/T: S: 01/08/2020 (31) PAGE 2 Signed ReportCOMPREHENSIVE METABOLIC [id number] 07:08:00 Test Item Value Reference Range Interpretation [...] 50-136 L TOTAL (test code = ALKP) [id number] 07:08:00 Test Item Value Reference Range Interpretation Comments MAGNESIUM (test code = MAG) 1.3 MG/DL 1.8-2.4 L COMPREHENSIVE METABOLIC [id number] 05:16:00 Test Item Value Reference Range Interpretation [...] 50-136 L TOTAL (test code = ALKP) [id number] 05:16:00 Test Item Value Reference Range Interpretation Comments MAGNESIUM (test code = MAG) 1.3 MG/DL 1.8-2.4 L CBC W/AUTO [id number] 05:02:00 Test Item Value Reference Range Interpretation [...] (test code = NO DIFF/SCN CRITERIA MDIFF) [id number] 16:51:00 Test Item Value Reference Range Interpretation Comments MAGNESIUM (test code = MAG) 2.3 MG/DL 1.8-2.4 N FE W/TOTAL IRON BINDING CAP.2020-01-07 16:51:00 Test Item Value Reference Range Interpretation Comments SERUM IRON (test code = IRON) 38 mcG/DL 65-175 L TOTAL IRON BINDING CAPACITY (test 322 mcG/DL 250-450 N code = TIBC) IRON SATURATION (test code = 12 % calc 12-57 N FESAT) [id number] 16:51:00 Test Item Value Reference Range Interpretation Comments FERRITIN (test code = DAVID) 17.6 NG/ML 5.0-323.0 N CALCIUM [id number] 16:50:00 Test Item Value Reference Range Interpretation Comments CALCIUM IONIZED (test code = NAVEED) 1.12 mmol/L 1.12-1.32 N - XR ABDOMEN 1 [id number] 10:29:00 Name: DORA JOSEPH [facility] : 1970 Age/S: 49 / M [address] [address] Unit #: [id number] Loc: [place] [address] Phys: Verona Frost PA-C Acct: [id number] Dis Date: Status: ADM IN ONE #: [phone] Exam Date: 01/07/2020 0712 FAX #: Reason: reassess SBO EXAMS: CPT: [id number] XRABDOMEN 1 V 57415 Fluoro Time: DAP (Gy m2): Air Kerma (mGy): CLINICAL INFORMATION: Bowel obstruction. Dictation location: J9 Comparison: 01/06/2020 reported distended colon Technique: Supine view. Findings. Once again noted is diffuse air-filled distention of the colon particularly the transverse section. Formed fecal matter is seen in the left colon and pelvis. An NG tube is in place. No destructivebone lesion or pathologic calcification identified. IMPRESSION: 1. Diffuse gaseous distention of thecolon is again identified of approximately similar degree. 2. NG tube in place. at 1029 Reported and signed by: Sukhwinder Hinkle M.D. CC: Mark Perea MD; Verona Frost PAGE 1 Signed Report Name: DORA JOSEPH [facility] : 1970 Age/S: 49 / M [address] [address] Unit #: [id number] Loc: [place] [address] Phys: Verona Frost PA-C Acct: [id number] Dis Date: Status: ADM IN PHONE #: [phone] Exam Date: 01/07/2020 0712 FAX #: Reason: reassess SBO EXAMS: CPT: [id number] XR ABDOMEN 1 V 50153 Fluoro Time: DAP (Gy m2): Air Kerma (mGy): <Continued> Technologist: Alexander De Leon RT(R)(CT) Trnscb Date/Time: 2019 (0176) tJUDSONAGV Orig Print D/T: S: 01/07/2020 (0424) PAGE 2 Signed Report BASIC METABOLIC [id number] 07:01:00 Test Item Value Reference Range Interpretation [...] CA) 5.4 MG/DL 8.5-10.1 LL CBC W/AUTO [id number] 06:49:00 Test Item Value Reference Range Interpretation [...] = NO DIFF/SCN CRITERIA MDIFF) COMPREHENSIVE METABOLIC [id number] 06:10:00 Test Item Value Reference Range Interpretation [...] TOTAL (test code = ALKP) CBC W/AUTO [id number] 05:52:00 Test Item Value Reference Range Interpretation [...] DIFF/SCN CRITERIA MDIFF) - XR ABDOMEN 1 [id number] 01:30:00 Name: DORA JOSEPH [facility] : 1970 Age/S: 49 / M [address] [address] Unit #: [id number] Loc: [place] [address] Phys: Ted Coleman PRODUCT SAFETY OFFICER Acct: [id number] Dis Date: Status: ADM IN PHONE #: [phone] Exam Date: 01/06/2020 0100 FAX #: Reason: NG Tube Placement Verification EXAMS: CPT: [id number] XR ABDOMEN 1 V 13499 Fluoro Time: DAP (Gy m2): Air Kerma [...] Do M.D. CC: Mark Perea MD; Ted Coleman PRODUCT SAFETY OFFICER PAGE 1 Signed Report Name: DORA JOSEPH [facility] : 1970 Age/S: 49 / M [address] [facility] Unit #: [id number] Loc: [place] [address] Phys: Ted Coleman NP Acct : [id number] Dis Date: Status: ADM IN PHONE #: [phone] Exam Date: 01/06/2020 0100 FAX #: Reason: NG Tube Placement Verification EXAMS: CPT: [id number] XR ABDOMEN 1 V 15768 Fluoro Time: DAP (Gy m2): Air Kerma (mGy): <Continued> Technologist: Amberly Borrero RT(R) Trntnb Date/Time: 01/06/2020 (129) tKARTIK Orig Print D/T: S: 01/06/2020 (132) PAGE 2 Signed Report- CT ABD PELVIS W/O [id number] 19:42:00 Alpha: St: REG -- Name: DORA JOSEPH [facility] : 1970 Age/S: 49/M [address] [facility] Unit:[id number] Loc: [place], [place]: [place] [address] Acct: [id number] Dis Date: Status: REG ER PHONE #: [phone] Exam Date: 12/13/2019 1925 FAX #: [phone] Reason: pain EXAMS: CPT CODE: [id number] CT ABD PELVIS W/O CONT 22775 Examination: CT scan abdomen and pelvis without [...] inguinal adenopathy is identified. Bladder is distended and is grossly unremarkable. Prostatic calcifications are [...] finding. 2. Otherwise unremarkable unenhanced CT scan ofabdomen and pelvis. at 1942 Reported and signed by: SHANEL EDWARDS CC: Technologist: SUJATA ALMANZAR Trnscrd Dt/Tm: 12/13/2019 (1941) [email or web address] Orig Pr int D/T: S: 12/13/2019 (5 PAGE 1 Signed ReportBASIC METABOLIC PANEL 2019-12-13 18:49:00 Test Item Value Reference Range Interpretation [...] code = CA) 8.6 mg/dl 8.0-10.5 N [id number] 18:49:00 Test Item Value Reference Range Interpretation Comments LIPASE (test code = LIP) 97 Units/L 65.0-230.0 N CBC W/AUTO [id number] 18:38:00 Test Item Value Reference Range Interpretation [...] K/mm3 0.0-0.2 N - XR CHEST 1 [id number] 18:36:00 Alpha: St: PRE -- Name: DORA JOSEPH [facility] : 1970 Age/S: 49/M [address] [facility] Unit#: [id number] Loc: [place], [place]: [place] [address] Acct: [id number] Dis Date: Status: PRE ER PHONE #: [phone] Exam Date: 12/13/2019 1822 FAX #: [phone] Reason: SOB EXAMS: CPT CODE: [id number] XR CHEST 1 V 92305 Examination: One view chest x-ray Location code: [...] : By: GarettVR5 PAGE 1 Signed Report Alpha: St: PRE ------- Name: DORA JOSEPH [facility] : 1970 Age/S: 49/M [address] [facility] Unit #: [id number] Loc: [place], [place]: [place] [address] Acct: [id number] Dis Date: Status: PRE ER PHONE #: [phone] Exam Date: 12/13/20191821 FAX #: [phone] Reason: SOB EXAMS: CPT CODE: [id number] XR CHEST 1 V 64523 (Continued) Orig Print D/T: S: 12/13/2019 (1838)PAGE 2 Signed ReportCBC W/PLT COUNT & AUTO [id number] 08:02:00 Test Item Value Reference Range Interpretation [...] Received comment: User comments: Slide comments:BASIC METABOLIC [id number] 07:34:00 Test Item Value Reference Range Interpretation [...] S NOT APPLICABLE FOR DIALYSIS PATIEN TS. [id number] 07:26:00 Test Item Value Reference Range Interpretation Comments PHOSPHORUS (BEAKER) (test code = 3.1 mg/dL 2.3-4.7 604) [id number] 07:26:00 Test Item Value Reference Range Interpretation Comments MAGNESIUM (BEAKER) (test code = 1.6 mg/dL 1.6-2.6 627) RAD, ABDOMEN/KUB, 1 VIEW [id number] 07:04:00Reason for exam:->ileusFINAL REPORT Abdomen , one [...] MDReport Verified Date/Time: 04/03/2019 07:04:46 Reading Location: [facility] C0[facility] Ortho Consult Reading Room BASIC METABOLIC [id number] 06:47:00 Test Item Value Reference Range Interpretation [...] code = 413) URINALYSIS WITH MICROSCOPIC IF [id number] 22:01:00 Test Item Value Reference Range Interpretation [...] 463) SOURCE(BEAKER) (test code = 2795) URINALYSIS [id number] 22:01:00 Test Item Value Reference Range Interpretation Comments RBC UA (BEAKER) (test code = 519) 18 /HPF WBC UA (BEAKER) (test code = 520) 1 /HPF CALCIUM OXALATE CRYSTALS (BEAKER) Occasional (test code = 518) [id number] 05:49:00 Test Item Value Reference Range Interpretation Comments PHOSPHORUS (BEAKER) (test code = 2.5 mg/dL 2.3-4.7 604) [id number] 05:49:00 Test Item Value Reference Range Interpretation Comments MAGNESIUM (BEAKER) (test code = 1.7 mg/dL 1.6-2.6 627) BASIC METABOLIC [id number] 05:49:00 Test Item Value Reference Range Interpretation [...] (BEAKER) (test code = 413) BASIC METABOLIC [id number] 06:19:00 Test Item Value Reference Range Interpretation [...] S NOT APPLICABLE FOR DIALYSIS PATIEN TS. [id number] 06:10:00 Test Item Value Reference Range Interpretation Comments MAGNESIUM (BEAKER) 1.8 mg/dL 1.6-2.6 Specimen slightly (test code = 627) hemolyzed [id number] 06:10:00 Test Item Value Reference Range Interpretation [...] (BEAKER) (test code = 413) BASIC METABOLIC [id number] 04:57:00 Test Item Value Reference Range Interpretation [...] S NOT APPLICABLE FOR DIALYSIS PATIEN TS. [id number] 04:55:00 Test Item Value Reference Range Interpretation Comments PHOSPHORUS (BEAKER) (test code = 2.6 mg/dL 2.3-4.7 604) [id number] 04:55:00 Test Item Value Reference Range Interpretation Comments MAGNESIUM (BEAKER) (test code = 1.8 mg/dL 1.6-2.6 627) CT, [id number] 14:16:00FINAL REPORT TECHNIQUE: CT of the abdomen [...] Pope MDReport Verified Date/Time: 03/29/2019 14:16:01Reading Location: [facility] C013Y CT Body Reading Room , ABDOMEN/KUB, 1 VIEW [id number] 10:23:00Reason for exam:->evaluate ileusFINAL REPORT Technique: Supine [...] MDReport Verified Date/Time: 03/29/2019 10:23:29 Reading Location: [facility] Reading Room CBC (HEMOGRAM ONLY)2019-03-29 08:10:00 Test [...] WBC 0-0 (BEAKER) (test code = 413) [id number] 06:20:00 Test Item Value Reference Range Interpretation Comments PHOSPHORUS (BEAKER) (test code = 2.6 mg/dL 2.3-4.7 604) [id number] 06:20:00 Test Item Value Reference Range Interpretation Comments MAGNESIUM (BEAKER) (test code = 2.0 mg/dL 1.6-2.6 627) BASIC METABOLIC [id number] 06:20:00 Test Item Value Reference Range Interpretation [...] 8.4-10.2 L (test code = 697) EGFR (GILMAR) (test 106 mL/min/1.73 ESTIM ATED GFR IS code = 1092) sq m NOT ACCURATE CREATININE CLEARANCE IN PREDICTING GLOMERULAR FILTRATION RATE . ESTIMATED GFR I S NOT APPLICABLE FOR DIALYSIS PATIEN TS. RAD, ABDOMEN SERIES W/ UPRIGHT PA [id number] 22:18:00Reason for exam:- >eval ileusFINAL REPORT CLINICAL [...] evaluation with CT abdomen pelvis. Signed: Jian Powers [facility] Verified Date/Time: 03/28/2019 22:18:50 RAD, ABDOMEN/KUB, 1 VIEW [id number] 11:23:00Reason for exam:->abdominal distensionShould this be performed [...] focal transition point is identified. Signed: Candido Ontiveros MDReport Verified Date/Time: 03/28/2019 11:23:34 Reading Location: [facility] Radiology Reading Room TISSUE [id number] 09:00:00Surgical Pathology Report Case: [id number] Authorizing Provider: Graciela Garrison MD Collected: 03/25/2019 1133 Ordering Location: [facility] Received: 03/25/2019 1527 SERVICES Pathologist: [...] FOR MALIGNANCY Signing Pathologist Direct Phone Line: [phone] signed by Jordan Celaya MD on 03/28/2019 at 9:00 [id number] and postop diagnosis: ileostomy statusA. End ileostomy; [...] of small bowel are focal areas of mucosal hemorrhage. Skin is not grossly identified on either segment. The mucosa is slightly edematous. No gross lesions are identified. Lymph nodes are not identified in the mesentery. Formation Fracturing Operator sections are submitted. Section code: A, textile designs sales representative section of each end of first mentioned segment of small bowel; A2, textile designs sales representative of first mentioned segment of small bowel mucosa; A3, area of hemorrhagic mesentery of second mentioned segment of mucosa; A4, textile designs sales representative of hemorrhagic mucosa at open end of second portion of small bowel; A5, textile designs sales representative of stapled margin from second mentioned segment of small bowel, en face. B. Received fresh labeled with the patient's name, acces cjarlos number and "appendix" is an intact appendix measuring 3.5 cm in length and 0.6 cm in diameter which has a moderate amount of attached mesoappendix. The serosa is pink and smooth. The proximal end is cauterized. The specimen is serially sectioned to reveal a abad, smooth mucosa. No fecaliths are present. The wall thickness is 0.2 cm. No gross lesions are identified. Formation Fracturing Operator sections are submitted. Section code: B1, proximal margin en face and tip; B2, textile designs sales representative cross section. CG/pl Performed.[id number] 06:23:00 Test Item Value Reference Range Interpretation Comments PHOSPHORUS (BEAKER) (test code = 2.7 mg/dL 2.3-4.7 604) [id number] 06:23:00 Test Item Value Reference Range Interpretation Comments MAGNESIUM (BEAKER) (test code = 1.9 mg/dL 1.6-2.6 627) BASIC METABOLIC [id number] 06:23:00 Test Item Value Reference Range Interpretation [...] S NOT APPLICABLE FOR DIALYSIS PATIEN TS. [id number] 08:20:00 Test Item Value Reference Range Interpretation Comments PHOSPHORUS (BEAKER) (test code = 2.6 mg/dL 2.3-4.7 604) [id number] 08:20:00 Test Item Value Reference Range Interpretation Comments MAGNESIUM (BEAKER) (test code = 1.8 mg/dL 1.6-2.6 627) BASIC METABOLIC [id number] 08:20:00 Test Item Value Reference Range Interpretation [...] S NOT APPLICABLE FOR DIALYSIS PATIEN TS. [id number] 06:06:00 Test Item Value Reference Range Interpretation Comments PHOSPHORUS (BEAKER) (test code = 4.1 mg/dL 2.3-4.7 604) [id number] 06:06:00 Test Item Value Reference Range Interpretation Comments MAGNESIUM (BEAKER) (test code = 1.8 mg/dL 1.6-2.6 627) BASIC METABOLIC [id number] 06:06:00 Test Item Value Reference Range Interpretation [...] S NOT APPLICABLE FOR DIALYSIS PATIEN TS. [id number] 06:03:00 Test Item Value Reference Range Interpretation Comments PHOSPHORUS (BEAKER) (test code = 4.2 mg/dL 2.3-4.7 604) [id number] 06:03:00 Test Item Value Reference Range Interpretation Comments MAGNESIUM (BEAKER) (test code = 2.0 mg/dL 1.6-2.6 627) BASIC METABOLIC [id number] 06:03:00 Test Item Value Reference Range Interpretation [...] WBC 0-0 (BEAKER) (test code = 413) [id number] 05:52:00 Test Item Value Reference Range Interpretation Comments PHOSPHORUS (BEAKER) (test code = 4.2 mg/dL 2.3-4.7 604) [id number] 05:52:00 Test Item Value Reference Range Interpretation Comments MAGNESIUM (BEAKER) (test code = 1.9 mg/dL 1.6-2.6 627) BASIC METABOLIC [id number] 05:52:00 Test Item Value Reference Range Interpretation [...] S NOT APPLICABLE FOR DIALYSIS PATIEN TS. [id number] 06:51:00 Test Item Value Reference Range Interpretation Comments PHOSPHORUS (BEAKER) (test code = 4.3 mg/dL 2.3-4.7 604) [id number] 06:51:00 Test Item Value Reference Range Interpretation Comments MAGNESIUM (BEAKER) (test code = 2.0 mg/dL 1.6-2.6 627) BASIC METABOLIC [id number] 06:51:00 Test Item Value Reference Range Interpretation [...] 0-0 (BEAKER) (test code = 413) TISSUE [id number] 11:50:00Surgical Pathology Report Case: [id number] Authorizing Provider: Mela Larson MD Collected: 03/18/2019 1827 Ordering Location: [facility] Received: 03/21/2019 0823 SERVICES Pathologist: Jordan Celaya MD Specimen: Small Bowel, NOS A. SMALL BOWEL, ILEOSTOMY PROLAPSE, TAKEDOWN: - ANASTOMOSIS SITE WITH ACTIVE CHRONIC INFLAMMATION AND FOCAL ISCHEMIC CHANGES - MUCOSAL RESECTION MARGINS, NEGATIVE FOR MALIGNANCY - ONE BENIGN LYMPH NODE (0/1) - NEGATIVE FOR DYSPLASIA OR MALIGNANCYSigning Pathologist Direct Phone Line: [phone] signed by Jordan Celaya MDon 03/22/2019 at 11:50 [id number] of ileostomyReceived in a container labeled "small bowel" is a48 cm long bowel segment with a diameter ranging from 2.5 to 5 cm. The attached adipose tissue measures 23 x 5 x 0.5 cm. The specimen is unoriented. Mucosal margin is opened with a diameter of 3.5 cm. The outer margin appears to be the ostomy stump with a diameter of 4.2 cm with abad-pink possible skinidentified. Serosal surface is abad-pink and smooth. Serosal surface is abad-pink and smooth. The specimen is opened to show blood-filled lumen with abad-pink and hemorrhagic mucosa. The ostomy stump margin is serially sectioned to show underneath adipose tissue with no grossly identified lesions. Sectioning through the fat reveals two lymph nodes ranging from 0.5 to 1.2 cm in greatest dimension. Formation Fracturing Operator sections are submitted as follows: A1-A2, mucosal resection margin, en face; A3-A6, textile designs sales representative sections of the possible ostomy stump; A7-A11, serial textile designs sales representative sections from mucosal resection margin to the possible ostomy stump; A12, two lymph nodes. TH/plPerformed.[id number] 06:58:00 Test Item Value Reference Range Interpretation Comments PHOSPHORUS (BEAKER) (test code = 3.8 mg/dL 2.3-4.7 604) [id number] 06:58:00 Test Item Value Reference Range Interpretation Comments MAGNESIUM (BEAKER) (test code = 2.0 mg/dL 1.6-2.6 627) BASIC METABOLIC [id number] 06:58:00 Test Item Value Reference Range Interpretation [...] PATIEN TS. CBC W/PLT COUNT & AUTO [id number] 05:42:00 Test Item Value Reference Range Interpretation [...] 0-1 PERCENT (BEAKER) (test code = 2801) ALTHEA [id number] 17:42:00Reason for exam:->evaluate for colon stricture as [...] Number of images obtained: 11 Signed: [facility] Verified Date/Time: 03/21/2019 17:42:21 Reading Location: [place] [address]X [facility] Consult Reading Room [id number] 03:58:00 Test Item Value Reference Range Interpretation Comments PHOSPHORUS (BEAKER) (test code = 3.0 mg/dL 2.3-4.7 604) [id number] 03:58:00 Test Item Value Reference Range Interpretation Comments MAGNESIUM (BEAKER) (test code = 2.0 mg/dL 1.6-2.6 627) BASIC METABOLIC [id number] 03:58:00 Test Item Value Reference Range Interpretation [...] PATIEN TS. CBC W/PLT COUNT & AUTO [id number] 03:20:00 Test Item Value Reference Range Interpretation [...] (BEAKER) (test code = 2801) BASIC METABOLIC [id number] 06:26:00 Test Item Value Reference Range Interpretation [...] S NOT APPLICABLE FOR DIALYSIS PATIEN TS. [id number] 06:05:00 Test Item Value Reference Range Interpretation Comments PHOSPHORUS (BEAKER) (test code = 2.2 mg/dL 2.3-4.7 L 604) [id number] 06:05:00 Test Item Value Reference Range Interpretation Comments MAGNESIUM (BEAKER) (test code = 2.0 mg/dL 1.6-2.6 627) CBC W/PLT COUNT & AUTO [id number] 05:25:00 Test Item Value Reference Range Interpretation [...] 0-1 PERCENT (BEAKER) (test code = 2801) [id number] 04:31:00 Test Item Value Reference Range Interpretation Comments PHOSPHORUS (BEAKER) (test code = 3.7 mg/dL 2.3-4.7 604) [id number] 04:31:00 Test Item Value Reference Range Interpretation Comments MAGNESIUM (BEAKER) (test code = 1.9 mg/dL 1.6-2.6 627) BASIC METABOLIC [id number] 04:31:00 Test Item Value Reference Range Interpretation [...] PATIEN TS. CBC W/PLT COUNT & AUTO [id number] 04:15:00 Test Item Value Reference Range Interpretation [...] 0-1 PERCENT (BEAKER) (test code = 2801) [id number] 06:41:00 Test Item Value Reference Range Interpretation Comments PHOSPHORUS (BEAKER) (test code = 3.1 mg/dL 2.3-4.7 604) [id number] 06:41:00 Test Item Value Reference Range Interpretation Comments MAGNESIUM (BEAKER) (test code = 1.9 mg/dL 1.6-2.6 627) BASIC METABOLIC [id number] 06:41:00 Test Item Value Reference Range Interpretation [...] PATIEN TS. CBC W/PLT COUNT & AUTO [id number] 06:36:00 Test Item Value Reference Range Interpretation [...] PERCENT (BEAKER) (test code = 2801) CT, [id number] 17:04:00No PO contrastFINAL REPORT ABDOMINAL AND PELVIS [...] MDReport Verified Date/Time: 03/17/2019 17:04:19 Reading Location: [facility] B1 C013Y CT Body Reading Room XR ABDOMEN 2 [id number] 09:03:45XR ABDOMEN 2 VIEWSLOCATION: [id number]: Colstomy ProlapseCOMPARISON: Chest radiograph 04/15/2017, CT of [...] Nonspecific, nonobstructive bowel gas pattern.XR CHEST 1 [id number] 11:32:15EXAM: CHEST ONE VIEWINDICATION: Chest painCOMPARISON: None availableTECHNIQUE: AP view of the chest.FINDINGS: The cardiomediastinal silhouette is normal. The lungs are clearbilaterally. No pneumothoraxor pleural effusion is identified. Theosseous structures are unremarkable.IMPRESSION: No acute cardiopulmonary process.LOCATION: [id number] Type and [id number] 21:21:00 Test Item Value Reference Range Interpretation Comments ABO type (test code = ABO) O Rh Type (test code = RH) Positive Comprehensive Metabolic [id number] 20:36:00 Test Item Value Reference Range Interpretation [...] the National Kid[employer] Foundation,http ://nkd ep.nih.gov Alcohol/Ethanol, [id number] 20:36:00 Test Item Value Reference Range Interpretation Comments Alcohol, Ethyl <0.01 g/dL 0.00-0.01 N Intoxicated 0 .080 g/dL (test code = ETOH) or more Prothrombin [id number] 20:00:00 Test Item Value Reference Range Interpretation Comments PT (test code = PT) 10.10 seconds 9.78-13.35 N INR (test code = INR) 0.88 Ratio 0.6-1.2 N Partial Thromboplastin [id number] 20:00:00 Test Item Value Reference Range Interpretation Comments aPTT (test code = PTT) 31.50 seconds 24.39-37.25 N CBC with [id number] 19:50:00 Test Item Value Reference Range Interpretation [...] code = ALYMPH) 2.2 K/cumm 0.5-4.6 N Kleberg Abs (test code = AMONO) 0.4 K/cumm 0.0-1.2 N Eos Abs (test code = AEOS) 0.17 K/cumm 0.00-0.74 N Baso Abs (test code = ABASO) 0.0 K/cumm 0.00-0.21 N 15904& PELVIS W/O [id number] 17:36:28CT ABDOMEN AND PELVIS WITHOUT CONTRAST.CLINICAL HISTORY: [...]
[2022-04-28] MEDS ORDERED: ONDANSETRON 4 MG/2 ML VIAL ONE (04:04)
[2022-04-28] MEDS ORDERED: NA CHLORIDE 0.9% 1,000 ML ONE (04:05)
[2022-04-28 04:50] LABS: Absolute Lymphocytes (CBC) 1.7 K/uL (0.7-4.9); Hematocrit 30.4 % (39.6-49.0); MCV 85.2 fL (80-100); MPV 7.8 fL (7.6-11.3); RBC Red Blood Cell Count 3.57 M/uL (4.33-5.43)
[2022-04-28 04:51] LABS: Protime INR 0.88
[2022-04-28 05:04] LABS: ALT/SGPT 35 U/L (12-78); AST/SGOT 21 U/L (15-37); Albumin 3.7 g/dL (3.4-5.0); Alkaline Phosphatase 65 U/L (45-117); BUN Blood Urea Nitrogen 41 mg/dL (7-18); Bicarbonate 21 mmol/L (21-32); Bilirubin Direct 0.1 mg/dL (0-0.2); Bilirubin Total 0.4 mg/dL (0.2-1.0); Glomerular Filtration Rate 59 ml/min (=/>90); Glucose Level 87 mg/dL (74-106); Lipase 620 U/L (73-393); Magnesium 2.2 mg/dL (1.8-2.4); NT PRO-BNP 32 pg/mL (<125); Protein, Total 7.1 g/dL (6.4-8.2); Sodium Level 135 mmol/L (136-145)
[2022-04-28 05:16] LABS: Troponin High Sensitivity < 3.0 pg/mL (<58.9)
--- NOTE | 2022-04-28 05:26 | EDPHYS ---
Physician Documentation [facility] Name: Rico Mcneill Age: 52 yrs Sex: Male : 1970 Arrival Date: 04/28/2022 Time: 03:25 Bed 18 Private MD: ED Physician Rashaun Jiménez HPI: 04/28 05:21 This 52 yrs old Male presents to ER via EMS with complaints of nausea and diego vomiting x 4 days. 05:21 The patient presents to the emergency department with nausea, vomiting, that is diego intermittent. Onset: The symptoms/episode began/occurred 4 day(s) ago. Possible causes: antibiotics. The symptoms are aggravated by nothing. The symptoms are alleviated by nothing. Associated signs and symptoms: The patient has no apparent associated signs or symptoms. Severity of symptoms: At their worst the symptoms were mild in the emergency department the symptoms are unchanged. The patient has not experienced similar symptoms in the past. Historical: - Allergies: 03:27 NKDA; ja4 - Immunization history:: Adult Immunizations up to date. ROS: 05:22 Constitutional: Negative for fever, chills, and weight loss, Eyes: Negative for injury, diego pain, redness, and discharge, ENT: Negative for injury, pain, and discharge, Neck: Negative for injury, pain, and swelling, Cardiovascular: Negative for chest pain, palpitations, and edema, Respiratory: Negative for shortness of breath, cough, wheezing, and pleuritic chest pain, Back: Negative for injury and pain, : Negative for injury, bleeding, discharge, and swelling, MS/Extremity: Negative for injury and deformity, Skin: Negative for injury, rash, and discoloration, Neuro: Negative for headache, weakness, numbness, tingling, and seizure, Psych: Negative for depression, anxiety, suicide ideation, homicidal ideation, and hallucinations, Allergy/Immunology: Negative for hives, rash, and allergies, Endocrine: Negative for neck swelling, polydipsia, polyuria, polyphagia, and marked weight changes, Hematologic/Lymphatic: Negative for swollen nodes, abnormal bleeding, and unusual bruising. 05:22 Abdomen/GI: Positive for nausea and vomiting. Exam: 05:22 Constitutional: This is a well developed, well nourished patient who is awake, alert, diego and in no acute distress. Head/Face: Normocephalic, atraumatic. Eyes: Pupils equal round and reactive to light, extra-ocular motions intact. Lids and lashes normal. Conjunctiva and sclera are non-icteric and not injected. Cornea within normal limits. Periorbital areas with no swelling, redness, or edema. ENT: Nares patent. No nasal discharge, no septal abnormalities noted. Tympanic membranes are normal and external auditory canals are clear. Oropharynx with no redness, swelling, or masses, exudates, or evidence of obstruction, uvula midline. Mucous membranes moist. Neck: Trachea midline, no thyromegaly or masses palpated, and no cervical lymphadenopathy. Supple, full range of motion without nuchal rigidity, or vertebral point tenderness. No Meningismus. Chest/axilla: Normal chest wall appearance and motion. Nontender with no deformity. No lesions are appreciated. Cardiovascular: Regular rate and rhythm with a normal S1 and S2. No gallops, murmurs, or rubs. Normal PMI, no JVD. No pulse deficits. Respiratory: Lungs have equal breath sounds bilaterally, clear to auscultation and percussion. No rales, rhonchi or wheezes noted. No increased work of breathing, no retractions or nasal flaring. Abdomen/GI: Soft, non-tender, with normal bowel sounds. No distension or tympany. No guarding or rebound. No evidence of tenderness throughout. Back: No spinal tenderness. No costovertebral tenderness. Full range of motion. Male : Normal genitalia with no discharge or lesions. Skin: Warm, dry with normal turgor. Normal color with no rashes, no lesions, and no evidence of cellulitis. MS/ Extremity: Pulses equal, no cyanosis. Neurovascular intact. Full, normal range of motion. Neuro: Awake and alert, GCS 15, oriented to person, place, time, and situation. Cranial nerves II-XII grossly intact. Motor strength 5/5 in all extremities. Sensory grossly intact. Cerebellar exam normal. Normal gait. Psych: Awake, alert, with orientation to person, place and time. Behavior, mood, and affect are within normal limits. 05:22 ECG was reviewed by the Attending Physician. Vital Signs: 03:35 BP 98 / 66; Pulse 74; Resp 14; Temp 97.7; Pulse Ox 97% on R/A; Weight 68.04 kg; Height ja4 6 ft. 1 in. (185.42 cm); Pain 0/10; 05:34 BP 102 / 70; Pulse 75; Resp 16; Pulse Ox 97% ; ja4 03:35 Body Mass Index 19.79 (68.04 kg, 185.42 cm) [facility] MDM: 03:44 Patient medically screened. [facility] 05:23 Differential diagnosis: viral gastroenteritis, gastroenteritis. Data reviewed: vital diego signs, nurses notes, lab test result(s), EKG, radiologic studies, plain films. Data interpreted: child monitor: rate is 74 beats/min, rhythm is regular, Pulse oximetry: on room air is 97 %. Test interpretation: by ED physician or midlevel provider: ECG, plain radiologic studies. Counseling: I had a detailed discussion with the patient and/or guardian regarding: the historical points, exam findings, and any diagnostic results supporting the discharge/admit diagnosis, lab results, radiology results, the need for outpatient follow up, for definitive care, a family practitioner. 04/28 03:43 Order name: Basic Metabolic Panel; Complete Time: 05:19 [facility] 04/28 03:43 Order name: CBC with Diff; Complete Time: 05:19 [facility] 04/28 03:43 Order name: LFT's; Complete Time: 05:19 [facility] 04/28 03:43 Order name: Magnesium; Complete Time: 05:19 [facility] 04/28 03:43 Order name: NT PRO-BNP; Complete Time: 05:19 [facility] 04/28 03:43 Order name: PT-INR; Complete Time: 05:19 [facility] 04/28 03:43 Order name: Troponin HS; Complete Time: 05:19 [facility] 04/28 03:43 Order name: XRAY Chest (1 view) [facility] 04/28 03:43 Order name: EKG; Complete Time: 03:44 [facility] 04/28 03:43 Order name: Cardiac monitoring; Complete Time: 04:15 [facility] 04/28 03:43 Order name: EKG - Nurse/Tech; Complete Time: 04:15 [facility] 04/28 03:43 Order name: Lipase; Complete Time: 05:19 [facility] 04/28 03:43 Order name: IV Saline Lock 04/28 03:43 Order name: Labs collected and sent 04/28 03:43 Order name: O2 Per Protocol; Complete Time: 04:15 [facility] 04/28 03:43 Order name: O2 Sat Monitoring; Complete Time: 04:15 [facility] 04/28 03:43 Order name: Urine Dipstick-Ancillary (obtain specimen) [facility] EC: Rate is 67 beats/min. Rhythm is regular. QRS [place] is Normal. RI interval is normal. QRS diego interval is normal. QT interval is normal. No Q waves. T waves are Normal. No ST changes noted. Clinical impression: Normal ECG, NSR w/ Non-specific ST/T Changes, and No evidence of ischemia. Interpreted by me. Reviewed by me. Administered Medications: 04:13 Drug: NS 0.9% 1000 ml Route: IV; Rate: 1 bolus; Site: left hand; tequila 04:13 Drug: Zofran (Ondansetron) 4 mg Route: IVP; Site: left hand; tequila Disposition Summary: 04/28/22 05:25 Discharge Ordered Location: Home diego Problem: new diego Symptoms: have improved diego Condition: Stable diego Diagnosis - Nausea diego - Nausea with vomiting, unspecified diego - Colostomy status diego Followup: diego - With: Private Physician - When: 2 - 3 days - Reason: Recheck today's complaints, Continuance of care, Re-evaluation by your physician Followup: diego - With: Giovanny Hicks DO - When: 2 - 3 days - Reason: Recheck today's complaints, Re-evaluation by your physician Discharge Instructions: - Discharge Summary Sheet diego - Nausea and Vomiting, Adult diego - Nausea, Adult diego - Nausea and Vomiting, Adult, Tbnb-at-Estd diego - Nausea, Adult, Tren-zp-Gxlw diego - Vomiting, Adult diego Forms: - Medication Reconciliation Form [facility] - Thank You Letter diego - Antibiotic Education diego - Prescription Opioid Use [facility] Prescriptions: - Zofran 4 mg Oral Tablet - take 1 tablet by ORAL route every 12 hours As needed; 20 tablet; Refills: 0, diego Product Selection Permitted - promethazine 25 mg Oral Tablet - take 1 tablet by ORAL route every 6 hours As needed; 20 tablet; Refills: 0, diego Product Selection Permitted Signatures: Dispatcher [employer] EDRashaun Zhang MD MD cha Allen, Jeremy RN RN tequila Corrections: (The following items were deleted from the chart) 03: 03:27 PMHx: Hypertension; tequila mandel 03:27 03:27 PMHx: Hypothyroidism; ja4 ja4 : PMHx: Bipolar disorder; ja4 ja4 PMHx: bowel obstruction; ja4 ja4 PMHx: colostomy; ja4 ja4 PSHx: ileostomy; ja4 ja4
--- NOTE | 2022-04-28 05:26 | ER ---
Nurse's Notes [facility] Name: Rico Mcneill Age: 52 yrs Sex: Male : 1970 Arrival Date: 04/28/2022 Time: 03:25 Bed 18 Private MD: Diagnosis: Nausea;Nausea with vomiting, unspecified;Colostomy status Presentation: 04/28 03:26 Chief complaint: Patient states: n/v since midnight x4. Coronavirus screen: At this ja4 time, the client does not indicate any symptoms associated with coronavirus-19. Ebola Screen: No symptoms or risks identified at this time. Initial Sepsis Screen: Does the patient meet any 2 criteria? No. Patient's initial sepsis screen is negative. Risk Assessment: Do you want to hurt yourself or someone else? Patient reports no desire to harm self or others. Onset of symptoms was April 28, 2022 at 00:00. 03:26 Method Of Arrival: EMS ja4 03:26 Acuity: OCTAVIO 3 ja4 Triage Assessment: 03:27 General: Appears in no apparent distress. slender, unkempt, Behavior is calm, ja4 cooperative, appropriate for age. Pain: Denies pain. GI: Reports nausea, vomiting. Historical: - Allergies: 03:27 NKDA; ja4 - Immunization history:: Adult Immunizations up to date. Screenin:28 Abuse screen: Denies threats or abuse. Nutritional screening: No deficits noted. ja4 Tuberculosis screening: No symptoms or risk factors identified. Assessment: 03:28 Reassessment: see triage for assessment. ja4 Vital Signs: 03:35 BP 98 / 66; Pulse 74; Resp 14; Temp 97.7; Pulse Ox 97% on R/A; Weight 68.04 kg; Height ja4 6 ft. 1 in. (185.42 cm); Pain 0/10; 05:34 BP 102 / 70; Pulse 75; Resp 16; Pulse Ox 97% ; ja4 03:35 Body Mass Index 19.79 (68.04 kg, 185.42 cm) ja4 ED Course: 03:25 Patient arrived in ED. mw2 03:26 Brian Schultz, BRITTNY is Primary Nurse. ja4 03:27 Triage completed. ja4 03:27 Arm band placed on right wrist. ja4 03:28 Call light in reach. Side rails up X 1. Adult w/ patient. ja4 03:28 Maintain EMS IV. Dressing intact. Site clean \T\ dry. ja4 03:41 Rashaun Jiménez MD is Attending Physician. diego 03:58 EKG done, by ED staff, reviewed by Rashaun Jiménez MD. wm 04:00 XRAY Chest (1 view) In Process Unspecified. EDMS 04:15 Client placed on continuous cardiac and pulse oximetry monitoring. NIBP monitoring wm applied. pvc monitor on. 05:25 Giovanny Hicks DO is Referral Physician. [facility] 05:34 IV discontinued, intact, bleeding controlled, No redness/swelling at site. Pressure ja4 dressing applied. Administered Medications: 04:13 Drug: NS 0.9% 1000 ml Route: IV; Rate: 1 bolus; Site: left hand; ja4 04:13 Drug: Zofran (Ondansetron) 4 mg Route: IVP; Site: left hand; ja4 Medication: 03:28 VIS not applicable for this client. ja4 Outcome: 05:25 Discharge ordered by . [facility] 05:34 Discharged to home ambulatory. ja4 05:34 Condition: good 05:34 Discharge instructions given to patient, Instructed on discharge instructions, follow up and referral plans. medication usage, Demonstrated understanding of instructions, follow-up care, medications, Prescriptions given X 1. 05:36 Patient left the ED. ja4 Signatures: Dispatcher [employer] EDHI Rahsaun Jmiénez MD MD cha Westbrook, MyKena 2 Savannah Jones Jeremy RN RN ja4 Corrections: (The following items were deleted from the chart) 03:27 03:27 PMHx: Hypertension; ja4 03:27 03:27 PMHx: Hypothyroidism; ja4 03:27 03:27 PMHx: Bipolar disorder; ja4 4 03: 03:27 PMHx: bowel obstruction; ja4 4 03: 03:27 PMHx: colostomy; ja4 4 03:27 03:27 PSHx: ileostomy; ja4 4
[2022-04-28 05:44] VITALS: TEMP 97.7; O2SAT 97
[2022-04-28 05:48] VITALS: BP 102/70
--- NOTE | 2022-04-28 14:50 | RAD REPORT ---
EXAM DESCRIPTION: RAD - Chest Single View - 04/28/2022 3:59 am CLINICAL HISTORY: 52 years, Male, COUGH COMPARISON: None. FINDINGS: Single view of the chest was obtained portable. No prior films are available for compariso n. The cardiomediastinal silhouette demonstrate to be unremarkable. The heart is not enlarged. The th oracic aorta is unremarkable. The pulmonary vasculature is normal distribution. Costophrenic angles a re sharp. No areas of consolidation or masses are seen. The rest of the soft tissue and bony stru ctures demonstrate to be unremarkable. IMPRESSION: No acute cardiopulmonary disease seen. Electronically signed by: Bernardo Echeverria MD 04/28/2022 4:08 AM CDT Due to temporary technical issues with the PACS/Fluency reporting system, reports are being signed by the in house radiologists without review as a courtesy to insure prompt reporting. The interpreting radiologist is fully responsible for the content of the report.
--- NOTE | 2022-04-29 14:34 | EKG ---
Test Date: 2022-04-28 Test Time: 04:00:41 Concrete Finishing Machine Operator: MEASUREMENT RESULTS: Intervals: Rate: 67 SD: 166 QRSD: 98 QT: 394 QTc: 416 [place]: P: 76 SD: 166 QRS: 78 T: 78 INTERPRETIVE STATEMENTS: Normal sinus rhythm Early repolarization Normal ECG Compared to ECG 04/14/2022 22:41:13 Early repolarization now present Electronically Signed On 04-29-22 14:30:54 CDT by Rivera Ascencio
== END 2022-04-28 05:36 | disposition home or self-care (01) ==
LOC: ER 03:22
DX: R11.2 Nausea with vomiting, unspecified (principal); Z93.3 Colostomy status
CPT/HCPCS: 36415; 71045; 80048; 80076; 83690; 83735; 83880; 84484; 85025; 85610; 93005; 96374; 99284; J2405; J7030

== ENCOUNTER 2022-04-30 15:11 | Emergency (ER) | payer SELFPAY ==
--- OUTSIDE RECORDS SUMMARY | 2022-04-30 15:56 | XMS REPORT | Continuity of Care Document ---
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 capsule by [facility] mg capsule 00:00: 00:00 mouth once 00 :00 for 1 dose loperamide 2021- No Disorder of 2mg Take 1 [place] (IMODIUM) 2 01-11 stoma capsule by [facility] mg capsule 00:00: 00:00 mouth once 00 [...] 09/07/21 at 2045, JOÃO iopamidol 2021- No [id number] 100mL 100 mL, Univers (ISOVUE 09-08 Intravenou [...] Indication s: acute pain ondansetron 2021-0 Yes [id number] 4mg Take 1 Univers 4 mg 1-15 [...] Indication s: acute pain ondansetron 2021-0 Yes [id number] 4mg Take 1 Univers 4 mg 1-15 [...] Indication s: acute pain ondansetron 2021-0 Yes [id number] 4mg Take 1 Univers 4 mg 1-15 [...] Indication s: acute pain ondansetron 0 Yes [id number] 4mg Take 1 Univers 4 mg 1-15 [...] Indication s: acute pain ondansetron 2021-0 Yes [id number] 4mg Take 1 Univers 4 mg 1-15 [...] 4-6). Indication s: acute pain ondansetron 2021-0 2022- No [id number] 4mg Take 1 Univers 4 mg 1-15 [...] [place] 00 daily. Medical Branch vitamin 2-0 2021- No 1000ug Take 1 Unive rs [...] Branch daily with meals. loperamide 2022-0 Yes [id number] 2mg Take 1 Univers 2 mg 1-12 [...] Branch daily with meals. loperamide 2022-0 Yes [id number] 2mg Take 1 Univers 2 mg 1-12 [...] Branch daily with meals. loperamide 2022-0 Yes [id number] 2mg Take 1 Univers 2 mg 1-12 [...] Branch daily with meals. loperamide 2022-0 Yes [id number] 2mg Take 1 Univers 2 mg 1-12 [...] Branch daily with meals. loperamide 2022-0 Yes [id number] 2mg Take 1 Univers 2 mg 1-12 [...] Branch daily with meals. loperamide 2022-0 Yes [id number] 2mg Take 1 Univers 2 mg 1-12 [...] Branch daily with meals. loperamide 2022-0 Yes [id number] 2mg Take 1 Univers 2 mg 1-12 [...] Branch daily with meals. loperamide 2022-0 Yes [id number] 2mg Take 1 Univers 2 mg 1-12 [...] by ity of tablet 00:00: mouth 3 [place] 00 (three) Medical times Branch daily with meals. loperamide 2-0 Yes [id number] 2mg Take 1 Univers 2 mg 1-12 capsule by ity of capsule 00:00: mouth 2 [place] 00 (two) Medical times Branch daily. psyllium 2-0 Yes 1{packe Take 1 Univ ers 3.4 gram 1-12 t} Packet by ity of packet 00:00: mouth 2 [place] 00 (two) Medical times Branch daily. acetaminoph 2021-0 2- No 650mg Take 2 Un piyush en 325 mg -12 08-10 tablets by ity of tablet 00:00: 00:00 mouth [place] 00 :00 every 6 Medical (six) Branch hours as needed for Pain (scale 1-3). ibuprofen 2021-0 2- No 600mg Take 1 Univ ers 600 mg 1-12 08-10 tablet by ity of tablet 00:00: 00:00 mouth 3 [place] 00 :00 (three) Medical times Branch daily with meals. loperamide 2021-0 2022- No [id number] 2mg Take 1 Univers 2 mg 1-12 08-10 capsule by ity of capsule 00:00: 00:00 mouth 2 [place] 00 :00 (two) Medical times Branch daily. psyllium 2022-0 2022- No 1{packe Take 1 Uni vers 3.4 gram 1-12 08-10 t} Packet by ity o f packet 00:00: 00:00 mouth 2 [place] 00 :00 (two) Medical times Branch daily. vitamin 2022-0 Yes 1000ug 1,000 mcg, Un piyush B-12 09-03 Oral, ity of (CYANOCOBAL 20:00: DAILY, [place] 00 First dose Medical tablet on Tue Branch 1,000 mcg 09/03/21 at 1400, Until Discontinu ed, Routine vitamin 2-0 Yes 1000ug 1,000 mcg, Un piyush B-12 09-03 Oral, ity of (CYANOCOBAL 20:00: DAILY, [place] 00 First dose Medical tablet on Tue Branch 1,000 mcg 09/03/21 at 1400, Until Discontinu ed, Routine ibuprofen 2022-0 2022- No 600mg 600 mg, Uni vers (IBU) [...] Q6HPRN, [place] mg 55 Starting Medical on [place] 09/03/21 at 0828, Until Discontinu ed, Routine, Pain (scale 4-6) traMADoL Yes 50mg 50 mg, Univers (ULTRAM) 09-03 Oral, ity of tablet 50 14:28: Q6HPRN, [place] mg 55 Starting Medical on [facility] 09/03/21 at 0828, Until Discontinu ed, Routine, [...] Thu09/03/21 at 0826, Routine sulfur 2021- No [id number] 5mL 5 mL, Unive rs hexafluorid 1-10 01-10 Intravenou i ty of e microsphr 21:30: 21:30 s, ONCE, 1 [place] (LUMASON) 00 :00 dose, On Medica l injection 5 Mon Branch mL 09/02/21 at 1530, Routine
team member approving Restricted medication : MARKBRETCAMILA NaCl 0.9% 2022-0 2022- No 500mL at 999 Univ ers (NS) bolus 09-01 01-09 mL/hr, 500 it y of infusion 23:15: 22:18 mL, IV [place] 500 mL 00 :00 Piggyback, Medical ONCE, 1 Branch dose, On 09/01/21 at 1715, JOÃO NaCl 0.9% 2021-0 2021- No 1000mL at 75 Univ ers (NS) IV 09-01 01-09 mL/hr, IV ity of infusion 14:00: 16:07 Infusion, [place]avi as 1,000 mL 00 :36 CONTINUOUS Medic al , Starting Branch on 09/01/21 at 0800, Until [place] 09/01/21 at 1007, Routine NaCl 0.9% 2-0 2022- No 1000mL at 999 Uni vers (NS) bolus 08-31 01-08 mL/hr, ity of infusion 15:15: 15:11 1,000 mL, [place] 1,000 mL 00 :00 IV Medical Infusion, Branch ONCE, 1 dose, On 08/31/21 at 0915, STAT pantoprazol 2022-0 Yes 40mg 40 mg, Univ ers e 1-08 Oral, ity of (PROTONIX) 15:00: DAILY, [place] EC tablet 00 First dose Medi mariusz 40 mg on Sat Branch 08/31/21 at 0900, Until Discontinu ed, Routine pantoprazol 2022-0 Yes 40mg 40 mg, Univ ers e 1-08 Oral, ity of (PROTONIX) 15:00: DAILY, [place] EC tablet 00 First dose Medi mariusz [...] at 0800, Until Discontinu ed, Routine loperamide 2-0 Yes 2mg 2 mg, Univer s (IMODIUM [...] Discontinu ed, Routine, Pain (scale 1-3) acetaminoph 2022-0 Yes 650mg 650 mg, Un piyush en 08 Oral, ity of (TYLENOL) 06:03: Q6HPRN, [place] tablet 650 36 Starting Medic al mg on Sat Branch 08/31/21 at 0003, Until Discontinu ed, Routine, Pain (scale 1-3) NaCl 0.9% 2021- No 1000mL at 999 Uni vers (NS) bolus 08-3108 mL/hr, ity of infusion 01:45: 02:43 1,000 mL, [place] 1,000 mL 00 :00 IV Medical Infusion, Branch ONCE, 1 dose, On Thu08/30/21 at 1945, STAT albuterol 2021- No 8{puff} [...] 00 :00 dose, On Medical 1,000 mg [facility] 08/29/21 Branc h at 1830, Routine lidocaine 2021- No 10mL 10 mL, Unive rs 2% viscous 08-30 Oral, ity of (LIDOCAINE 00:30: 00:20 ONCE, 1 [place] VISCOUS) 2 00 :00 dose, On Medic al % solution [facility] 08/29/21 Bra nch 10 mL at 1830, JOÃO benzonatate 2021- No 100mg 100 mg, U nivers (TESSALON 08-30 Oral, ity of PERLES) 00:30: 00:22 ONCE, 1 [place] capsule 100 00 :00 dose, On Medi mariusz mg [place] 08/29/21 Branch at 1830, Routine No known No Univers medications -06 ity of 19:35: [place] 26 Medical Branch NaCl 0.9% 2020-08 Yes 10mL 10 mL, Univer s (NS) 2-12 Slow IV ity of injection 19:13: Push, PRN, [place] 10 mL 37 Starting Medical on [place] Branch 08/04/21 at 1313, Until Discontinu ed, Routine, line maintenanc e lidocaine 2020-08 Yes 5mL 5 mL, Univers 1% (PF) 2-12 Subcutaneo ity of (XYLOCAINE) 19:13: us, PRN, [place] injection 5 37 Starting Medi mariusz mL on [place] Branch 08/04/21 at 1313, Until Discontinu ed, Routine, Local anesthesia dextrose 5% 2020-08 Yes IV Univer s and 0.45% 2-12 Infusion, ity o f NaCl with 16:00: CONTINUOUS [place] KCl 40 mEq 00 , Starting Med ical 1,000 mL IV on [place] Branch Solution 08/04/21 at 1000, Until Discontinu ed, 1,000 mL, at 125 mL/hr NaCl 0.9% 2020-08- No 1000mL at 999 Uni vers (NS) bolus 2-12 12-12 mL/hr, ity of infusion 15:53: 17:17 1,000 mL, [place] 1,000 mL 00 :00 IV Medical Piggyback, Branch ONCE, 1 dose, On [place] 08/04/21 at 1000, JOÃO D5W 0.45% 2020-08- No IV Univers NaCl + KCL 2-10 12-12 Infusion, ity of 20 mEq RTU 15:00: 15:56 CONTINUOUS [place] 20 mEq/L 00 :45 , Starting Medic al 1,000 mL IV on Thu Branch Solution 08/02/21 at 0900, Until [place] 08/04/21 at 0956, 1,000 mL, at 100 mL/hr [...] :00 dose, On Medic al (4 %) [facility] Branch infusion 2 08/01/21 at g 0700, Routine diphenoxyla 2020-08- No 1{tbl} 1 tablet, Univers te-atropine 10-01 Oral, BID, i ty of (LOMOTIL) 15:30: 13:19 First dose [place] 2.5-0.025 00 :28 on Wed Medical mg tablet 1 07/31/21 at Br anch tablet 0930, Until Discontinu ed, Routine iopamidol 2020-08- No [id number] 100mL 100 mL, Univers (ISOVUE 10-01 Intravenou ity o f 370-500 mL) 05:14: 05:14 s, ONCE, 1 [place] injection 00 :00 dose, On Medica l 100 mL [facility] 07/30/21 at 2315, Routine morpHINE 2020-08 No 2mg 2 mg, Slow Un piyush injection 2 09-30 IV Push, ity of mg 17:00: 17:10 ONCE, 1 [place] 00 :00 dose, On Medical [facility] 07/30/21 at 1115, Routine enoxaparin 2020-08 Yes 40mg 40 mg, Unive rs (LOVENOX) 09-30 Subcutaneo ity of injection 15:00: us, DAILY, [place] 40 mg 00 First dose Medical (after Branch last modificati on) on [facility] 07/30/21 at 0900, Until Discontinu ed, Routine pantoprazol 2020-08 No 40mg 40 mg, Uni vers e 09-3010 Oral, ity of (PROTONIX) 15:00: 13:40 DAILY, [place] tablet 00 :20 First dose Medi mariusz 40 mg on [facility] 07/30/21 at 0900, Until Discontinu ed, Routine loperamide 2020-08 No 4mg 4 mg, Unive rs (IMODIUM 09-30 Oral, TID, ity of A-D) 14:00: 13:19 First dose [place] capsule 4 00 :28 on [facility] Medical mg 07/30/21 at Branch 0800, Until Discontinu ed, Routine psyllium 2020-08- No 1{packe 1 Packet, Univers (METAMUCIL 09-30 t} Oral, TID, it y of FIBER 14:00: 13:19 First dose [place] SINGLES) 00 :28 on [facility] Medical 3.4 gram 07/30/21 at [facility] h packet 1 0800, Packet Until Discontinu [...] 2-07 Oral, ity of (TYLENOL) 06:10: Q6HPRN, [place] tablet 650 40 Starting Medic al mg on Thu Branch 07/30/21 at 0010, Until Discontinu ed, Routine, Pain (scale 1-3) morpHINE 2020-08 4mg 4 mg, Slow Un piyush injection 4 2-07 12-07 IV Push, ity of mg 03:30: 02:55 ONCE, 1 [place] 00 :00 dose, On Medical Mon Branch 07/29/21 at 2130, STAT psyllium 2020-08 Yes [id number] 1{packe Take 1 Univers 3.4 gram 2-03 t} Packet by ity of packet 00:00: mouth 3 [place] 00 (three) Medical times Branch daily. loperamide 2020-08 Yes [id number] 4mg Take 2 Univers 2 mg 2-03 capsules ity of capsule 00:00: by mouth 3 [place] 00 (three) Medical times Branch daily. pantoprazol 2020-08 Yes [id number] 40mg Take 1 Univers e 40 mg EC 2-03 tablet by ity of tablet 00:00: mouth [place] 00 daily. Medical Branch psyllium 2020-08 Yes [id number] 1{packe Take 1 Univers 3.4 gram 2-03 t} Packet by ity of packet 00:00: mouth 3 [place] 00 (three) Medical times Branch daily. loperamide 2020-08 Yes [id number] 4mg Take 2 Univers 2 mg 2-03 capsules ity of capsule 00:00: by mouth 3 [place] 00 (three) Medical times Branch daily. pantoprazol 2020-08 Yes [id number] 40mg Take 1 Univers e 40 mg EC 2-03 tablet by ity of tablet 00:00: mouth [place] 00 daily. Medical Branch psyllium 2020-08- No [id number] 1{packe Take 1 Univers 3.4 gram 2-03 12-13 t} Packet by ity o f packet 00:00: 00:00 mouth 3 [place] 00 :00 (three) Medical times Branch daily. loperamide 2020-08- No [id number] 4mg Take 2 Univers 2 mg 2-03 12-13 capsules ity of capsule 00:00: 00:00 by mouth 3 [place] 00 :00 (three) Medical times Branch daily. pantoprazol 2020-08- No [id number] 40mg Take 1 Univers e 40 mg EC 2-03 12-13 tablet by ity of tablet 00:00: 00:00 mouth [place] 00 :00 daily. Medical Branch psyllium 2020-08- No [id number] 1{packe Take 1 Univers 3.4 gram 2-03 12-03 t} Packet by ity o f packet 00:00: 00:00 mouth 3 [place] 00 :00 (three) Medical times Branch daily for 90 days. loperamide 2020-08- No [id number] 4mg Take 2 Univers 2 mg 2-03 12-03 capsules ity of capsule 00:00: 00:00 by mouth 3 [place] 00 :00 (three) Medical times Branch daily for 90 days. pantoprazol 2020-08- No [id number] 40mg Take 1 Univers e 40 mg EC 2-03 12-03 tablet by ity of tablet 00:00: 00:00 mouth [place] 00 :00 daily for Medical 90 days. Branch psyllium 2020-08- No [id number] 1{packe Take 1 Univers 3.4 gram 2-03 12-03 t} Packet by ity o f packet 00:00: 00:00 mouth 3 [place] 00 :00 (three) Medical times Branch daily. pantoprazol 2020-08- No [id number] 40mg Take 1 Univers e 40 mg EC 09-26 tablet by ity of tablet 00:00: 00:00 mouth [place] 00 :00 daily. Medical Branch loperamide 2020-08- No [id number] 4mg Take 2 Univers 2 mg -07-26 capsules ity of capsule 00:00: 00:00 by mouth 3 [place] 00 :00 (three) Medical times Branch daily. psyllium 2020-08- No [id number] 1{packe Take 1 Univers 3.4 gram 09-26 t} Packet by ity o f packet 00:00: 00:00 mouth 3 [place] 00 :00 (three) Medical times Branch daily. loperamide 2020-08- No [id number] 4mg Take 2 Univers 2 mg 09-26 capsules ity of capsule 00:00: 00:00 by mouth 3 [place] 00 :00 (three) Medical times Branch daily. pantoprazol 2020-08- No [id number] 40mg Take 1 Univers e 40 mg EC 09-26 tablet by ity of tablet 00:00: 00:00 mouth [place] 00 :00 daily. Medical Branch pantoprazol 2020-08 Yes 40mg 40 mg, Univ ers e 2- Oral, ity of (PROTONIX) 15:00: DAILY, [place] EC tablet 00 First dose Medi mariusz 40 mg on [facility] 07/25/21 at 0900, Until Discontinu ed, Routine psyllium 2020-08 Yes 1{packe 1 Packet, U nivers (METAMUCIL 2-02 t} Oral, TID, ity of FIBER 14:00: First dose [place] SINGLES) 00 (after Medical 3.4 gram last Branch packet 1 modificati Packet on) on [facility] 07/25/21 at 0800, Until Discontinu ed, Routine diphenoxyla 2020-08- No 1{tbl} 1 tablet, Univers te-atropine 2-07-26 Oral, BID, i ty of (LOMOTIL) 14:00: [...] 1000mL at 999 Uni vers (NS) IV 09-24 12-01 mL/hr, IV ity of infusion 22:45: [...] 0145, Until Discontinu ed D5W 0.45% 2020-08 IV Univers NaCl 09-22 Infusion, ity of [...] ed, Routine, Pain (scale 1-3) NaCl 0.9% 2020-08 No 1000mL at 999 Uni vers (NS) bolus 1-30 11-30 mL/hr, ity of infusion 06:46: 07:00 1,000 mL, [place] 1,000 mL 00 :00 IV Medical Piggyback, [place] ONCE, 1 dose, On Thu07/23/21 at 0100, [...] dose [place] EC tablet 00 on [facility] Medical 40 mg 06/01/21 at Branch 0945, Until Discontinu ed, Routine psyllium 2020-08 Yes 1{packe 1 Packet, U nivers (METAMUCIL 0-09 t} Oral, ity of FIBER 14:45: DAILY, [place] SINGLES) 00 First dose Medic al 3.4 gram on [facility] Branch packet 1 06/01/21 at Packet [...] 16 Starting Medi mariusz tablet 1 on [facility] Branch tablet 06/01/21 at 0939, Until Discontinu ed, Routine, Pain (scale 7-10) ondansetron 2020-08 Yes 4mg 4 mg, Slow Univers (ZOFRAN 0-09 IV Push, ity of (PF)) 14:38: Q6HPRN, [place] injection 4 58 Starting Medi mariusz mg on [facility] Branch 06/01/21 at 0938, Until Discontinu ed, Routine, Nausea and Vomiting (N/V) acetaminoph 2020-08 Yes 650mg 650 mg, Un piyush en 0-09 Oral, ity of (TYLENOL) 14:36: Q6HPRN, [place] tablet 650 07 Starting Medic al mg [...] Thu05/31/21 at 2045, STAT iopamidol 2020-08- No [id number] 100mL 100 mL, Univers (ISOVUE 0-09 10-09 [...] 00 :00 dose, On Medi mariusz mg Thu Branch 05/31/21 at 1830, JOÃO NaCl 0.9% 2020-08- No 500mL at 999 Univ ers (NS) bolus 0-08 10-08 mL/hr, 500 it y of infusion 23:30: 23:59 mL, IV [place] 500 mL 00 :00 Piggyback, Medical ONCE, 1 Branch dose, On Thu05/31/21 at 1830, STAT psyllium 0 Yes [id number] 1{packe Take 1 Univers 3.4 gram 9-29 t} Packet by ity of packet 00:00: mouth [place] 00 daily. [facility] Branch psyllium 0 Yes [id number] 1{packe Take 1 Univers 3.4 gram 9-29 t} Packet by ity of packet 00:00: mouth [place] 00 daily. [facility] Branch psyllium 2020-0 Yes [id number] 1{packe Take 1 Univers 3.4 gram 9-29 t} Packet by ity of packet 00:00: mouth [place] 00 daily. [facility] Branch psyllium 0 Yes [id number] 1{packe Take 1 Univers 3.4 gram 9-29 t} Packet by ity of packet 00:00: mouth [place] 00 daily. [facility] psyllium 0 Yes [id number] 1{packe Take 1 Univers 3.4 gram 9-29 t} Packet by ity of packet 00:00: mouth [place] 00 daily. [facility] Branch psyllium 2021- No [id number] 1{packe Take 1 Univers 3.4 gram 9-29 12-13 t} Packet by ity o f packet 00:00: 00:00 mouth [place] 00 :00 daily. [facility] Branch enoxaparin Yes 40mg 40 mg, Unive [...] 05-21 Oral, ity of (TYLENOL) 00:15: Q6HPRN, [place] tablet 650 01 Starting Medic al mg [...] t} Oral, ity of FIBER 22:15: DAILY, [place] SINGLES) 00 First dose Medic al 3.4 gram (after Branch packet 1 last Packet modificati on) on Thu05/20/21 at 1715, Until Discontinu ed, Routine lactated 2020- No 2000mL at 999 [facility] ers ringers IV 05-20 mL/hr, ity of infusion 22:02: 22:36 2,000 mL, [place] 2,000 mL 00 :00 Intravenou Medic al s, ONCE, 1 Branch dose, On Thu05/20/21 at 1715, JOÃO ondansetron 2020- No 4mg 4 mg, Slow Univers (ZOFRAN 05-20 IV Push, ity of (PF)) 21:00: 20:15 ONCE, 1 [place] injection 4 00 :00 dose, On Medi mariusz mg Thu27/21 at 1600, JOÃO morpHINE 2020- No 4mg 4 mg, Slow Un piyush injection 4 05-20 IV Push, ity of mg 21:00: 20:15 ONCE, 1 [place] 00 :00 dose, On Medical [facility] 05/20/21 at 1600, STAT NaCl 0.9% 2020- No 500mL at 999 Univ ers (NS) bolus 05-20 mL/hr, 500 it y of infusion 21:00: 21:00 mL, IV [place] 500 mL 00 :00 Piggyback, Medical ONCE, 1 [place] dose, On [facility] 05/20/21 at 1600, STAT pantoprazol Yes 40mg 40 mg, Univ ers e 9-17 Oral, BID, ity of (PROTONIX) 01:00: First dose [place] EC tablet 00 on [facility] Medical 40 mg 05/09/21 at [place] 1999, Until Discontinu ed, Routine pantoprazol Yes 40mg 40 mg, Univ ers e -17 Oral, BID, ity of (PROTONIX) 01:00: First dose [place] EC tablet 00 on [place] Medical 40 mg 05/09/21 at [place] 1999, Until Discontinu ed, Routine pantoprazol 2020- No [id number] 40mg Take 1 Univers e 40 mg EC 9-16 11-16 tablet by ity of tablet 00:00: 05:59 mouth 2 [place] 00 :00 (two) [facility] daily pantoprazol 2020- No [id number] 40mg Take 1 Univers e 40 mg EC 9-16 11-16 tablet by ity of tablet 00:00: 05:59 mouth 2 [place] 00 :00 (two) [facility] daily pantoprazol 2020- No [id number] 40mg Take 1 Univers e 40 mg EC 9-16 11-16 tablet by ity of tablet 00:00: 05:59 mouth 2 [place] 00 :00 (two) [facility] daily pantoprazol 2020- No [id number] 40mg Take 1 Univers e 40 mg EC 9-16 11-16 tablet by ity of tablet 00:00: 05:59 mouth 2 [place] 00 :00 (two) Medical times Branch daily pantoprazol 2020- No [id number] 40mg Take 1 Univers e 40 mg EC 9-16 11-16 tablet by ity of tablet 00:00: 05:59 mouth 2 [place] 00 :00 (two) Medical times Branch daily pantoprazol 2020- No [id number] 40mg Take 1 Univers e 40 mg EC 9-16 11-16 tablet by ity of tablet 00:00: 05:59 mouth 2 [place] 00 :00 (two) Medical times Branch daily pantoprazol 2020- No [id number] 40mg Take 1 Univers e 40 mg EC 9-16 11-16 tablet by ity of tablet 00:00: 05:59 mouth 2 [place] 00 :00 (two) Medical times Branch daily [...] No 1000mL at 125 Uni vers infusion 05-08-15 mL/hr, IV ity o f [...] Medical 40 mg First dose Branch on [facility] 05/07/21 at 2330, Until Discontinu ed pantoprazol 2020- No 40mg 40 mg, Uni vers e 05-08 Slow IV ity of (PROTONIX) 04:30: 14:42 Push, [place] injection 00 :43 Q12H, Medical 40 mg First dose Branch on [facility] 05/07/21 at 2330, Until Discontinu ed ondansetron Yes 4mg 4 mg, Slow Univers (ZOFRAN 9-15 IV Push, ity of (PF)) 04:16: Q6HPRN, [place] injection 4 34 Starting Medi mariusz mg on [facility] Branch 05/07/21 at 2316, Until Discontinu ed, Routine, Nausea and Vomiting (N/V) ondansetron Yes 4mg 4 mg, Slow Univers (ZOFRAN 9-15 IV Push, ity of (PF)) 04:16: Q6HPRN, [place] injection 4 34 Starting Medi mariusz mg on [facility] 05/07/21 at 2316, Until Discontinu ed, Routine, Nausea and Vomiting (N/V) morpHINE 2020- No 4mg 4 mg, Slow Un piyush injection 4 05-08 IV Push, ity of mg 04:16: 04[facility]15 [facility] [place] 32 :32 Starting Medical on [facility] 05/07/21 at 2316, Until Thu05/08/21 at 2315, Routine, Pain (scale 7-10) morpHINE 2020- No 4mg 4 mg, Slow Un piyush injection 4 05-08 IV Push, ity of mg 04:16: 04:15 Q4HPRN, [place] 32 :32 Starting Medical on [facility] 05/07/21 at 2316, Until Thu05/08/21 at 2315, Routine, Pain (scale 7-10) diazePAM 2020- No 5mg 5 mg, Slow Un piyuhs (VALIUM) 05-08 IV Push, ity of injection 5 02:45: 02:49 ONCE, 1 [place] mg 00 :00 dose, On Medical [facility] 05/07/21 at 2145, STAT diazePAM 2020- No 5mg 5 mg, Slow Un piyush (VALIUM) 05-08 IV Push, ity of injection 5 02:45: 02:49 ONCE, 1 [place] mg 00 :00 dose, On [facility] 05/07/21 at 2145, STAT iopamidol 2020-0 2020- No [id number] 100mL 100 mL, Univers (ISOVUE 05-08 Intravenou ity o f 370-500 mL) 02:15: 01:08 s, ONCE, 1 [place] injection 00 :00 dose, On Medica l 100 mL [facility] 05/07/21 at 2115, Routine iopamidol 2020- No [id number] 100mL 100 mL, Univers (ISOVUE 05-08 Intravenou ity o f 370-500 mL) 02:15: 01:08 s, ONCE, 1 [place] injection 00 :00 dose, On Medica l 100 mL [facility] 05/07/21 at 2115, Routine morpHINE 2020- No 4mg 4 mg, Slow Un piyush injection 4 05-08 IV Push, ity of mg 01:45: 00:48 ONCE, 1 [place] 00 :00 dose, On [facility] 05/07/21 at 2044, JOÃO ondansetron 2020- No 4mg 4 mg, Slow Univers (ZOFRAN 05-08 IV Push, ity of (PF)) 01:45: 00:47 ONCE, 1 [place] injection 4 00 :00 dose, On Medi mariusz mg [facility] 05/07/21 at 2044, JOÃO morpHINE 0 2020- No 4mg 4 mg, Slow Un piyush injection 4 05-08 IV Push, ity of mg 01:45: 00:48 ONCE, 1 [place] 00 :00 dose, On [facility] 05/07/21 at 2044, JOÃO ondansetron 2020-0 2020- No 4mg 4 mg, Slow Univers (ZOFRAN 05-08 IV Push, ity of (PF)) 01:45: 00:47 ONCE, 1 [place] injection 4 00 :00 dose, On Medi mariusz mg [facility] 05/07/21 at 2045, JOÃO flu vaccine 2020- No .5mL 0.5 mL, Un piyush 6 months 08-24 Intramuscu ity of and up (PF) 17:30: 18:09 lar, ONCE, [place] (FLUZONE 00 :00 1 dose, Medical QUAD 08/24/20 Branch [id number] at 1130, (PF)) Routine syringe 0.5 mL sulfamethox 2020- No 1{tbl} 1 tablet, [facility] azole-trime 08-24 Oral, BID, i ty of thoprim 02:00: 13:59 7 doses, [place] (BACTRIM 00 :00 First dose Medic al DS) 800-160 on [facility] Branch mg per 08/23/20 tablet 1 at 1999, tablet Last dose on 08/26/20 at 1999, JOÃO
Re ason for Anti-Infec tive: Empiric Therapy for Suspected Infection< br>Empiric Therapy Site: Skin / Soft tissue
Duration of therapy: 72 hours sulfamethox 2020- No [id number] 1{tbl} Take 1 Univers azole-trime 08-24 tablet by it y of thoprim 00:00: 05:59 mouth 2 [place] 800-160 mg 00 :00 (two) Medical per tablet times Branch daily for 7 days. enoxaparin 2019-08 Yes 40mg 40 mg, Unive rs (LOVENOX) 2-31 Subcutaneo ity of injection 21:30: us, Q24H, [place] 40 mg 00 First dose Medical on [facility] Branch 08/23/20 at 1530, Until Discontinu ed, Routine docusate 2019-08 Yes 100mg 100 mg, Unive rs (COLACE) 2-31 Oral, ity of capsule 100 15:00: DAILY, [place] mg 00 First dose Medical on [facility] Branch 08/23/20 at 0900, Until Discontinu ed, Routine psyllium 2019-08 Yes 3{packe 3 Packet, U nivers (METAMUCIL 2-31 t} Oral, TID, ity of FIBER 14:00: First dose [place] SINGLES) 00 on [facility] Medical 3.4 gram 08/23/20 Branch packet 3 at 0800, Packet Until Discontinu ed, Routine heparin 2019-08 2020- No 5000U 5,000 Univers (porcine) 2-31 12-31 Units, ity of injection 14:00: 20:18 Subcutaneo [...] 2019-08 Yes 6mg 6 mg, Univers (MELATIN) 2 Oral, PRN ity o f tablet 6 mg 03:12: - SEE [place] [facility], 1 Branch dose, Starting 08/22/20 at 2111, Until Discontinu ed, Routine, Insomnia, HS labetaloL 2019-08 Yes 10mg 10 mg, Univer s (NORMODYNE) 2-31 Slow IV ity o f injection 03:12: Push, [place] 10 mg 33 Q6HPRN, Medical Starting Branch 08/22/20 at 2111, Until Discontinu ed, Routine, hypertensi on ondansetron 2019-08 Yes 4mg 4 mg, Slow [facility] (ZOFRAN 2 IV Push, ity of (PF)) 03:12: Q6HPRN, [place] injection 4 08 Starting Medi mariusz mg Wed Branch 08/22/20 at 2111, Until Discontinu ed, Routine, Nausea and Vomiting (N/V) acetaminoph 2019-08 Yes 650mg 650 mg, Un piyush en 2-31 Oral, ity of (TYLENOL) 03:11: Q6HPRN, [place] tablet 650 56 Starting Medic al mg Wed Branch 08/22/20 at 211, Until Discontinu ed, Routine, Pain (scale 1-3) [...] of 1,000 mg in 23:30: 00:58 Piggyback, [place] NaCl 0.9% 00 :00 ONCE, 1 Medical [...] Branch ONCE, 1 dose, 07/09/20 at 1645, [facility] amoxicillin 2019-08 Yes [id number] 1{tbl} Take 1 Univers -clavulanat 1-16 tablet by ity of e 875-125 00:00: mouth [place] mg per 00 every 12 Medical tablet (twelve) Branch hours. amoxicillin 2019-08- No [id number] 1{tbl} Take 1 Univers -clavulanat 1-16 08-24 tablet by it y of e 875-125 00:00: 00:00 mouth [place] mg per 00 :00 every 12 Medical tablet (twelve) Branch hours. iohexol 2019-08- No 120mL 120 mL, Unive rs (OMNIPAQUE 0-13 06-05 Intravenou it y of 350 13:15: 12:53 [...] of Therapy: 7 days ibuprofen 2019-08 Yes [id number] 800mg Take 1 U nivers 800 mg 0-08 tablet by ity of tablet 00:00: mouth [place] 00 every 6 Medical (six) Branch hours as needed for Pain (scale 4-6). loperamide 2019-08 Yes [id number] 4mg Take 2 U nivers 2 mg 0-08 capsules ity of capsule 00:00: [place] mouth 4 [place] 00 (four) Medical times Branch daily. diphenoxyla 2019-08 Yes [id number] 1{tbl} Take 1 Univers te-atropine 0-08 tablet by ity of 2.5-0.025 00:00: mouth [place] mg tablet 00 every 8 Medical (eight) Branch hours. psyllium 2019- Yes [id number] 3{packe Take 3 [facility] 3.4 gram 0-08 t} Packets by ity o f packet 00:00: mouth 3 [place] 00 (three) Medical times Branch daily. psyllium 2019- Yes [id number] 3{packe Take 3 [facility] 3.4 gram 0-08 t} Packets by ity o f packet 00:00: mouth 3 [place] 00 (three) Medical times Branch daily. diphenoxyla 2019- Yes [id number] 1{tbl} Take 1 Univers te-atropine 0-08 tablet by ity of 2.5-0.025 00:00: mouth [place] mg tablet 00 every 8 Medical (eight) Branch hours. loperamide 2020-1 Yes [id number] 4mg Take 2 U nivers 2 mg 0-08 capsules ity of capsule 00:00: by mouth 4 [place] 00 (four) Medical times Branch daily. ibuprofen 2020-1 Yes [id number] 800mg Take 1 U nivers 800 mg 0-08 tablet by ity of tablet 00:00: mouth [place] 00 every 6 Medical (six) Branch hours as needed for Pain (scale 4-6). psyllium 2020-1 Yes [id number] 3{packe Take 3 [facility] 3.4 gram 0-08 t} Packets by ity o f packet 00:00: mouth 3 [place] 00 (three) Medical times Branch daily. diphenoxyla 2020-1 Yes [id number] 1{tbl} Take 1 [facility] te-atropine 0-08 tablet by ity of 2.5-0.025 00:00: mouth [place] mg tablet 00 every 8 Medical (eight) Branch hours. loperamide 2020-1 Yes [id number] 4mg Take 2 U nivers 2 mg 0-08 capsules ity of capsule 00:00: by mouth 4 [place] 00 (four) Medical times Branch daily. ibuprofen 2020-1 Yes [id number] 800mg Take 1 U nivers 800 mg 0-08 tablet by ity of tablet 00:00: mouth [place] 00 every 6 Medical (six) Branch hours as needed for Pain (scale 4-6). psyllium 2020-1 Yes [id number] 3{packe Take 3 [facility] 3.4 gram 0-08 t} Packets by ity o f packet 00:00: mouth 3 [place] 00 (three) Medical times Branch daily. diphenoxyla 2020-1 Yes [id number] 1{tbl} Take 1 [facility] te-atropine 0-08 tablet by ity of 2.5-0.025 00:00: mouth [place] mg tablet 00 every 8 Medical (eight) Branch hours. loperamide 2020-1 Yes [id number] 4mg Take 2 U nivers 2 mg 0-08 capsules ity of capsule 00:00: by mouth 4 [place] 00 (four) Medical times Branch daily. ibuprofen 2020-1 Yes [id number] 800mg Take 1 U nivers 800 mg 0-08 tablet by ity of tablet 00:00: mouth [place] 00 every 6 Medical (six) Branch hours as needed for Pain (scale 4-6). psyllium 2020-1 Yes [id number] 3{packe Take 3 [facility] 3.4 gram 0-08 t} Packets by ity o f packet 00:00: mouth 3 [place] 00 (three) Medical times Branch daily. diphenoxyla 2020-1 Yes [id number] 1{tbl} Take 1 [facility] te-atropine 0-08 tablet by ity of 2.5-0.025 00:00: mouth [place] mg tablet 00 every 8 Medical (eight) Branch hours. loperamide 2020- Yes [id number] 4mg Take 2 U nivers 2 mg 0-08 capsules ity of capsule 00:00: by mouth 4 [place] 00 (four) Medical times Branch daily. ibuprofen 2020- Yes [id number] 800mg Take 1 U nivers 800 mg 0-08 tablet by ity of tablet 00:00: mouth [place] 00 every 6 Medical (six) Branch hours as needed for Pain (scale 4-6). psyllium 2020- Yes [id number] 3{packe Take 3 [facility] 3.4 gram 0-08 t} Packets by ity o f packet 00:00: mouth 3 [place] 00 (three) Medical times Branch daily. diphenoxyla 2020- Yes [id number] 1{tbl} Take 1 [facility] te-atropine 0-08 tablet by ity of 2.5-0.025 00:00: mouth [place] mg tablet 00 every 8 Medical (eight) Branch hours. loperamide 2020- Yes [id number] 4mg Take 2 U nivers 2 mg 0-08 capsules ity of capsule 00:00: by mouth 4 [place] 00 (four) Medical times Branch daily. ibuprofen 2020-1 Yes [id number] 800mg Take 1 U nivers 800 mg 0-08 tablet by ity of tablet 00:00: mouth [place] 00 every 6 Medical (six) Branch hours as needed for Pain (scale 4-6). psyllium 2020-1 Yes [id number] 3{packe Take 3 [facility] 3.4 gram 0-08 t} Packets by ity o f packet 00:00: mouth 3 [place] 00 (three) Medical times Branch daily. diphenoxyla 2020- Yes [id number] 1{tbl} Take 1 [facility] te-atropine 0-08 tablet by ity of 2.5-0.025 00:00: mouth [place] mg tablet 00 every 8 Medical (eight) Branch hours. loperamide 2020-1 Yes [id number] 4mg Take 2 U nivers 2 mg 0-08 capsules ity of capsule 00:00: by mouth 4 [place] 00 (four) Medical times Branch daily. ibuprofen 2020-1 Yes [id number] 800mg Take 1 U nivers 800 mg 0-08 tablet by ity of tablet 00:00: mouth [place] 00 every 6 Medical (six) Branch hours as needed for Pain (scale 4-6). psyllium 2020-1 Yes [id number] 3{packe Take 3 [facility] 3.4 gram 0-08 t} Packets by ity o f packet 00:00: mouth 3 [place] 00 (three) Medical times Branch daily. diphenoxyla 2020-1 Yes [id number] 1{tbl} Take 1 Univers te-atropine 0-08 tablet by ity of 2.5-0.025 00:00: mouth [place] mg tablet 00 every 8 Medical (eight) Branch hours. loperamide 2020-1 Yes [id number] 4mg Take 2 U nivers 2 mg 0-08 capsules ity of capsule 00:00: by mouth 4 [place] 00 (four) Medical times Branch daily. ibuprofen 2020-1 Yes [id number] 800mg Take 1 U nivers 800 mg 0-08 tablet by ity of tablet 00:00: mouth [place] 00 every 6 Medical (six) Branch hours as needed for Pain (scale 4-6). psyllium 2020-1 Yes [id number] 3{packe Take 3 [facility] 3.4 gram 0-08 t} Packets by ity o f packet 00:00: mouth 3 [place] 00 (three) Medical times Branch daily. diphenoxyla 2020-1 Yes [id number] 1{tbl} Take 1 [facility] te-atropine 0-08 tablet by ity of 2.5-0.025 00:00: mouth [place] mg tablet 00 every 8 Medical (eight) Branch hours. loperamide 2020-1 Yes [id number] 4mg Take 2 U nivers 2 mg 0-08 capsules ity of capsule 00:00: by mouth 4 [place] 00 (four) Medical times Branch daily. ibuprofen 2020-1 Yes [id number] 800mg Take 1 U nivers 800 mg 0-08 tablet by ity of tablet 00:00: mouth [place] 00 every 6 Medical (six) Branch hours as needed for Pain (scale 4-6). psyllium 2020-1 Yes [id number] 3{packe Take 3 [facility] 3.4 gram 0-08 t} Packets by ity o f packet 00:00: mouth 3 [place] 00 (three) Medical times Branch daily. diphenoxyla 2020-1 Yes [id number] 1{tbl} Take 1 [facility] te-atropine 0-08 tablet by ity of 2.5-0.025 00:00: mouth [place] mg tablet 00 every 8 Medical (eight) Branch hours. loperamide 2020- Yes [id number] 4mg Take 2 U nivers 2 mg 0-08 capsules ity of capsule 00:00: by mouth 4 [place] 00 (four) Medical times Branch daily. ibuprofen 2020- Yes [id number] 800mg Take 1 U nivers 800 mg 0-08 tablet by ity of tablet 00:00: mouth [place] 00 every 6 Medical (six) Branch hours as needed for Pain (scale 4-6). psyllium 2020-1 Yes [id number] 3{packe Take 3 [facility] 3.4 gram 0-08 t} Packets by ity o f packet 00:00: mouth 3 [place] 00 (three) Medical times Branch daily. diphenoxyla 2020-1 Yes [id number] 1{tbl} Take 1 [facility] te-atropine 0-08 tablet by ity of 2.5-0.025 00:00: mouth [place] mg tablet 00 every 8 Medical (eight) Branch hours. loperamide 2020-1 Yes [id number] 4mg Take 2 U nivers 2 mg 0-08 capsules ity of capsule 00:00: by mouth 4 [place] 00 (four) Medical times Branch daily. ibuprofen 2020-1 Yes [id number] 800mg Take 1 U nivers 800 mg 0-08 tablet by ity of tablet 00:00: mouth [place] 00 every 6 Medical (six) Branch hours as needed for Pain (scale 4-6). psyllium 2020-1 Yes [id number] 3{packe Take 3 [facility] 3.4 gram 0-08 t} Packets by ity o f packet 00:00: mouth 3 [place] 00 (three) Medical times Branch daily. diphenoxyla 2020-1 Yes [id number] 1{tbl} Take 1 [facility] te-atropine 0-08 tablet by ity of 2.5-0.025 00:00: mouth [place] mg tablet 00 every 8 Medical (eight) Branch hours. loperamide 2020-1 Yes [id number] 4mg Take 2 U nivers 2 mg 0-08 capsules ity of capsule 00:00: by mouth 4 [place] 00 (four) Medical times Branch daily. ibuprofen 2020-1 Yes [id number] 800mg Take 1 U nivers 800 mg 0-08 tablet by ity of tablet 00:00: mouth [place] 00 every 6 Medical (six) Branch hours as needed for Pain (scale 4-6). psyllium 2020-1 Yes [id number] 3{packe Take 3 [facility] 3.4 gram 0-08 t} Packets by ity o f packet 00:00: mouth 3 [place] 00 (three) Medical times Branch daily. diphenoxyla 2020-1 Yes [id number] 1{tbl} Take 1 [facility] te-atropine 0-08 tablet by ity of 2.5-0.025 00:00: mouth [place] mg tablet 00 every 8 Medical (eight) Branch hours. loperamide 2020-1 Yes [id number] 4mg Take 2 U nivers 2 mg 0-08 capsules ity of capsule 00:00: by mouth 4 [place] 00 (four) Medical times Branch daily. ibuprofen 2020-1 Yes [id number] 800mg Take 1 U nivers 800 mg 0-08 tablet by ity of tablet 00:00: mouth [place] 00 every 6 Medical (six) Branch hours as needed for Pain (scale 4-6). psyllium 2020-1 Yes [id number] 3{packe Take 3 [facility] 3.4 gram 0-08 t} Packets by ity o f packet 00:00: mouth 3 [place] 00 (three) Medical times Branch daily. diphenoxyla 2020-1 Yes [id number] 1{tbl} Take 1 [facility] te-atropine 0-08 tablet by ity of 2.5-0.025 00:00: mouth [place] mg tablet 00 every 8 Medical (eight) Branch hours. loperamide 2020-1 Yes [id number] 4mg Take 2 U nivers 2 mg 0-08 capsules ity of capsule 00:00: by mouth 4 [place] 00 (four) Medical times Branch daily. ibuprofen 2020-1 Yes [id number] 800mg Take 1 U nivers 800 mg 0-08 tablet by ity of tablet 00:00: mouth [place] 00 every 6 Medical (six) Branch hours as needed for Pain (scale 4-6). acetaminoph 2019-08 No [id number] 650mg Take 2 [facility] en 325 mg 0-08 10-09 tablets by ity of tablet 00:00: 04:59 mouth [place] 00 :00 every 6 Medical (six) Branch hours as needed for Pain (scale 1-3). acetaminoph 2019-08 No [id number] 650mg Take 2 [facility] en 325 mg 0-08 10-09 tablets by ity of tablet 00:00: 04:59 mouth [place] 00 :00 every 6 Medical (six) Branch hours as needed for Pain (scale 1-3). acetaminoph 2019-08 No [id number] 650mg Take 2 [facility] en 325 mg 0-08 10-09 tablets by ity of tablet 00:00: 04:59 mouth [place] 00 :00 every 6 Medical (six) Branch hours as needed for Pain (scale 1-3). acetaminoph 2019-08 No [id number] 650mg Take 2 [facility] en 325 mg 0-08 10-09 tablets by ity of tablet 00:00: 04:59 mouth [place] 00 :00 every 6 Medical (six) Branch hours as needed for Pain (scale 1-3). acetaminoph 2019-08 No [id number] 650mg Take 2 [facility] en 325 mg 0-08 10-09 tablets by ity of tablet 00:00: 04:59 mouth [place] 00 :00 every 6 Medical (six) Branch hours as needed for Pain (scale 1-3). acetaminoph 2019-08 No [id number] 650mg Take 2 [facility] en 325 mg 0-08 10-09 tablets by ity of tablet 00:00: 04:59 mouth [place] 00 :00 every 6 Medical (six) Branch hours as needed for Pain (scale 1-3). acetaminoph 2019-08 No [id number] 650mg Take 2 [facility] en 325 mg 0-08 10-09 tablets by ity of tablet 00:00: 04:59 mouth [place] 00 :00 every 6 Medical (six) Branch hours as needed for Pain (scale 1-3). acetaminoph 2019-08 No [id number] 650mg Take 2 [facility] en 325 mg 0-08 10-09 tablets by ity of tablet 00:00: 04:59 mouth [place] 00 :00 every 6 Medical (six) Branch hours as needed for Pain (scale 1-3). acetaminoph 2019-08 No [id number] 650mg Take 2 Univers en 325 mg 0-08 10-09 tablets by ity of tablet 00:00: 04:59 mouth [place] 00 :00 every 6 Medical (six) Branch hours as needed for Pain (scale 1-3). acetaminoph 2019-08- No [id number] 650mg Take 2 Univers en 325 mg 0-08 10-09 tablets by ity of tablet 00:00: 04:59 mouth [place] 00 :00 every 6 Medical (six) Branch hours as needed for Pain (scale 1-3). acetaminoph 2019-08 No [id number] 650mg Take 2 [facility] en 325 mg 0-08 10-09 tablets by ity of tablet 00:00: 04:59 mouth [place] 00 :00 every 6 Medical (six) Branch hours as needed for Pain (scale 1-3). acetaminoph 2019-08 No [id number] 650mg Take 2 [facility] en 325 mg 0-08 10-09 tablets by ity of tablet 00:00: 04:59 mouth [place] 00 :00 every 6 Medical (six) Branch hours as needed for Pain (scale 1-3). acetaminoph 2019-08- No [id number] 650mg Take 2 [facility] en 325 mg 0-08 10-09 tablets by ity of tablet 00:00: 04:59 mouth [place] 00 :00 every 6 Medical (six) Branch hours as needed for Pain (scale 1-3). acetaminoph 2019-08- No [id number] 650mg Take 2 [facility] en 325 mg 0-08 10-09 tablets by ity of tablet 00:00: 04:59 mouth [place] 00 :00 every 6 Medical (six) Branch hours as needed for Pain (scale 1-3). psyllium 2019-08- No [id number] 3{packe Take 3 Univers 3.4 gram 0-08 09-16 t} Packets by ity of packet 00:00: 00:00 mouth 3 [place] 00 :00 (three) Medical times Branch daily. diphenoxyla 2019-08 No [id number] 1{tbl} Take 1 [facility] te-atropine 0-08 09-16 tablet by it y of 2.5-0.025 00:00: 00:00 mouth [place] mg tablet 00 :00 every 8 Medical (eight) Branch hours. loperamide 2019-08 [id number] 4mg Take 2 Univers 2 mg 0-08 09-16 capsules ity of capsule 00:00: 00:00 by mouth 4 [place] 00 :00 (four) Medical times Branch daily. ibuprofen 2019-08 [id number] 800mg Take 1 [facility] 800 mg 0-08 09-16 tablet by ity of tablet 00:00: 00:00 mouth [place] 00 :00 every 6 Medical (six) Branch hours as needed for Pain (scale 4-6). acetaminoph 2019-08 [id number] 650mg Take 2 [facility] en 325 mg 0-08 09-16 tablets by ity of tablet 00:00: 00:00 mouth [place] 00 :00 every 6 Medical (six) Branch hours as needed for Pain (scale 1-3). psyllium 2019-08 No [id number] 3{packe Take 3 [facility] 3.4 gram 0-08 09-16 t} Packets by ity of packet 00:00: 00:00 mouth 3 [place] 00 :00 (three) Medical times Branch daily. diphenoxyla 2019-08 [id number] 1{tbl} Take 1 Univers te-atropine 0-08 -16 tablet by it y of 2.5-0.025 00:00: 00:00 mouth [place] mg tablet 00 :00 every 8 Medical (eight) Branch hours. loperamide 2019-08 [id number] 4mg Take 2 Univers 2 mg 0-08 09-16 capsules ity of capsule 00:00: 00:00 by mouth 4 [place] 00 :00 (four) Medical times Branch daily. ibuprofen 2019-08 [id number] 800mg Take 1 [facility] 800 mg 0-08 09-16 tablet by ity of tablet 00:00: 00:00 mouth [place] 00 :00 every 6 Medical (six) Branch hours as needed for Pain (scale 4-6). acetaminoph 2019-08 No [id number] 650mg Take 2 [facility] en 325 mg 0-08 09-16 tablets by ity of tablet 00:00: 00:00 mouth [place] 00 :00 every 6 Medical (six) Branch hours as needed for Pain (scale 1-3). acetaminoph 2019-08- No [id number] 650mg Take 2 Univers en 325 mg 0-08 10-08 tablets by ity of tablet 00:00: 00:00 mouth [place] 00 :00 every 6 Medical (six) Branch hours as needed for Pain (scale 1-3). ibuprofen 2019-08- No [id number] 800mg Take 1 [facility] 800 mg 0-08 10-08 tablet by ity of tablet 00:00: 00:00 mouth [place] 00 :00 every 6 Medical (six) Branch hours as needed for Pain (scale 4-6). loperamide 2019-08- No [id number] 4mg Take 2 Univers 2 mg 0-08 10-08 capsules ity of capsule 00:00: 00:00 by mouth 4 [place] 00 :00 (four) Medical times Branch daily. diphenoxyla 2019-08- No [id number] 1{tbl} Take 1 Univers te-atropine 0-08 10-08 tablet by it y of 2.5-0.025 00:00: 00:00 mouth [place] mg tablet 00 :00 every 8 Medical (eight) Branch hours. psyllium 2019-08- No [id number] 3{packe Take 3 Univers 3.4 gram 0-08 10-08 t} Packets by ity of packet 00:00: 00:00 mouth 3 [place] 00 :00 (three) Medical times Branch daily. iohexoL 2019-08- No 50mL 50 mL, Univers (OMNIPAQUE 0-07 [...] at 0800, Until Discontinu ed, Routine magnesium 2020- 2020- No 4g 4 g, IV Univ ers sulfate in 0-06 -06 Piggyback, it y of water 4 12:30: 14:29 ONCE, 1 [place] gram/50 mL 00 :00 dose, [facility] Medi mariusz (8 %) IV 05/29/20 at [facility] Piggyback 4 0730, g Routine magnesium 2020- 2020- No 2g 2 g, IV Univ ers sulfate in 0-12 31-05 Piggyback, it y of water 2 13:30: 13:20 ONCE, 1 [place] gram/50 mL 00 :00 dose, [facility] Medi mariusz (4 %) 05/28/20 at [place] infusion 2 0830, g Routine loperamide 2019-08 Yes 4mg 4 mg, Univer s (IMODIUM 0-05 Oral, QID, ity o f A-D) 13:00: First dose [place] capsule 4 00 (after Medical mg last Branch modificati on) on Thu05/28/20 at 0800, Until Discontinu ed, Routine psyllium 2020-1 2020- No 1{packe 1 Packet, Univers (METAMUCIL 0-05 10-06 t} Oral, BID, it y of FIBER 01:00: 12:18 First dose [place] SINGLES) 00 :14 on [place] Medical 3.4 gram 05/27/20 at [facility] packet 1 1999, Packet Until Discontinu ed, Routine loperamide 2019-08 2020- No 4mg 4 mg, Unive rs (IMODIUM 0-04 10-05 Oral, TID, ity of A-D) 19:00: 12:56 First dose [place] capsule 4 00 :31 (after Medical mg last Branch modificati on) on [place] 05/27/20 at 1400, Until Discontinu ed, Routine magnesium 2020-1 2020- No 2g 2 g, IV Univ ers sulfate in 0- 10-04 Piggyback, it y of water 2 [...] Medic al s, ONCE, 1 Branch dose, Thu05/25/20 at 1515, Routine magnesium 2019-08- No 4g 4 g, IV Univ ers sulfate in 005-24 Piggyback, it y of water 4 22:15: 22:07 ONCE, 1 [place] gram/50 mL 00 :00 dose, [place] Medi mariusz (8 %) IV 05/24/20 at [facility] h Piggyback 4 1715, g Routine iohexoL [...] 2019-08- No IV Push, Uni vers (VERSED) 005-24 PRN, ity of injection 17:00: 17:00 Starting [place] 16 :16 [place] [facility] 05/24/20 at Branch 1200, Until Discontinu ed, Routine FENTanyl PF 2019-08- No Slow IV Un piyush (SUBLIMAZE 05-24 Push, PRN, it y of (PF)) 16:01: 16:01 Starting [place] injection 03 :03 [facility] Medical 05/24/20 at Branch 1101, Until Discontinu ed, Routine loperamide 2019-08- No 2mg 2 mg, Unive rs (IMODIUM 05-25 Oral, BID, ity of A-D) 13:00: 12:33 First dose [place] capsule 2 00 :17 on [place] Medical mg 05/24/20 at Branch 0800, Until Discontinu ed, Routine iohexol 2019- No 100mL 100 mL, Unive rs (OMNIPAQUE 05-23 09 Intravenou it y of 350 14:54: 14:54 s, ONCE, 1 [place] BULK-100 00 :00 dose, Thu Medica l mL) 05/23/20 at [place] injection 1015, 100 mL Routine docusate 2019- [...] :16 dose on Medica l mg Thu [place] 05/22/20 at 2330, Until Discontinu ed, JOÃO
Re ason for Anti-Infec tive: Documented Infection< br>Documen dain Infection Site: Abdominal< br>Duratio n of Therapy: 7 days ondansetron Yes 4mg 4 mg, Slow [facility] (ZOFRAN 30 IV Push, ity of (PF)) 03:15: Administer [place] injection 4 50 over 15 Medic al mg Minutes, Branch Q8HPRN, Starting [facility] 05/22/20 at 2215, Until Discontinu ed, Routine, Nausea and Vomiting (N/V) D5W 0.45% 2019-0 Yes IV [facility] NaCl 05-23 Infusion, ity of (1/2NS) 1 L 03:15: at 50 [place] + KCL 20 00 mL/hr, Medical mEq CONTINUOUS Branch , Starting [facility] 05/22/20 at 2230, Until Discontinu ed, Routine ibuprofen 2019-0 Yes 800mg 800 mg, Univ ers (IBU) 05-23 Oral, ity of tablet 800 03:13: Q6HPRN, [place] mg 38 Starting Medical e Branch 05/22/20 at 2213, Until Discontinu ed, Routine, Pain (scale 4-6) acetaminoph 2019-0 Yes 650mg 650 mg, Un piyush en 05-23 Oral, ity of (TYLENOL) 03:13: Q6HPRN, [place] tablet 650 36 Starting Medic al mg [facility] Branch 05/22/20 at 2213, Until Discontinu ed, Routine, Pain (scale 1-3) morpHINE 2019-0 2020- No 4mg 4 mg, Slow Un piyush injection 4 05-22 IV Push, ity of mg 03:30: 03:13 ONCE, 1 [place] 00 :00 dose, [facility] 05/21/20 at Branch 2230, STAT piperacilli 2019-0 2020- No 3.375g 3.375 g, Univers n-tazobacta 05-20 IV ity of m (ZOSYN) 10:15: 22:14 [place], [place] 3.375 g in 00 :00 ONCE, 1 Medica l NaCl 0.9% dose, [place] h (NS) 100 mL 05/20/20 at MINI-BAG [...] 1,000 mL 00 :00 IV Medical [place], [place] ONCE, 1 dose, 05/19/20 at 2245, STAT ibuprofen 2020-0 Yes [id number] 800mg Take 1 U nivers 800 mg 9-18 tablet by ity of tablet 00:00: mouth [place] 00 every 6 Medical (six) Branch hours as needed for Pain (scale 4-6). levoFLOXaci 2020-0 Yes [id number] 750mg Take 1 Univers n 750 mg 9-18 tablet by ity of tablet 00:00: mouth [place] 00 every 24 Medical (twenty-fo Branch ur) hours. loperamide 2020-0 Yes [id number] 2mg Take 1 U nivers 2 mg 9-18 capsule by ity of capsule 00:00: mouth [place] 00 daily. Medical Branch ibuprofen 2020-0 Yes [id number] 800mg Take 1 U nivers 800 mg 9-18 tablet by ity of tablet 00:00: mouth [place] 00 every 6 Medical (six) Branch hours as needed for Pain (scale 4-6). levoFLOXaci 2020-0 Yes [id number] 750mg Take 1 Univers n 750 mg 9-18 tablet by ity of tablet 00:00: mouth [place] 00 every 24 Medical (twenty-fo Branch ur) hours. loperamide 2020-0 Yes [id number] 2mg Take 1 U nivers 2 mg 9-18 capsule by ity of capsule 00:00: mouth [place] 00 daily. Medical Branch ibuprofen 2020-0 Yes [id number] 800mg Take 1 U nivers 800 mg 9-18 tablet by ity of tablet 00:00: mouth [place] 00 every 6 Medical (six) Branch hours as needed for Pain (scale 4-6). levoFLOXaci 2020-0 Yes [id number] 750mg Take 1 Univers n 750 mg 9-18 tablet by ity of tablet 00:00: mouth [place] 00 every 24 Medical (twenty-fo Branch ur) hours. loperamide 2020-0 Yes [id number] 2mg Take 1 U nivers 2 mg 9-18 capsule by ity of capsule 00:00: mouth [place] 00 daily. Medical Branch ibuprofen 2020-0 Yes [id number] 800mg Take 1 U nivers 800 mg 9-18 tablet by ity of tablet 00:00: mouth [place] 00 every 6 Medical (six) Branch hours as needed for Pain (scale 4-6). levoFLOXaci 2020-0 Yes [id number] 750mg Take 1 Univers n 750 mg 9-18 tablet by ity of tablet 00:00: mouth [place] 00 every 24 Medical (twenty-fo Branch ur) hours. loperamide 2020-0 Yes [id number] 2mg Take 1 U nivers 2 mg 9-18 capsule by ity of capsule 00:00: mouth [place] 00 daily. Medical Branch ibuprofen 2020-0 Yes [id number] 800mg Take 1 U nivers 800 mg 9-18 tablet by ity of tablet 00:00: mouth [place] 00 every 6 Medical (six) Branch hours as needed for Pain (scale 4-6). levoFLOXaci 2020-0 Yes [id number] 750mg Take 1 Univers n 750 mg 9-18 tablet by ity of tablet 00:00: mouth [place] 00 every 24 Medical (twenty-fo Branch ur) hours. loperamide 2020-0 Yes [id number] 2mg Take 1 U nivers 2 mg 9-18 capsule by ity of capsule 00:00: mouth [place] 00 daily. Medical Branch ibuprofen 2020-0 Yes [id number] 800mg Take 1 U nivers 800 mg 9-18 tablet by ity of tablet 00:00: mouth [place] 00 every 6 Medical (six) Branch hours as needed for Pain (scale 4-6). levoFLOXaci 2020-0 Yes [id number] 750mg Take 1 Univers n 750 mg 9-18 tablet by ity of tablet 00:00: mouth [place] 00 every 24 Medical (twenty-fo Branch ur) hours. loperamide 2020-0 Yes [id number] 2mg Take 1 U nivers 2 mg 9-18 capsule by ity of capsule 00:00: mouth [place] 00 daily. Medical Branch ibuprofen 2020-0 Yes [id number] 800mg Take 1 U nivers 800 mg 9-18 tablet by ity of tablet 00:00: mouth [place] 00 every 6 Medical (six) Branch hours as needed for Pain (scale 4-6). levoFLOXaci 2020-0 Yes [id number] 750mg Take 1 Univers n 750 mg 9-18 tablet by ity of tablet 00:00: mouth [place] 00 every 24 Medical (twenty-fo Branch ur) hours. loperamide 2020-0 Yes [id number] 2mg Take 1 U nivers 2 mg 9-18 capsule by ity of capsule 00:00: mouth [place] 00 daily. Medical Branch ibuprofen 2020-0 Yes [id number] 800mg Take 1 U nivers 800 mg 9-18 tablet by ity of tablet 00:00: mouth [place] 00 every 6 Medical (six) Branch hours as needed for Pain (scale 4-6). levoFLOXaci 2020-0 Yes [id number] 750mg Take 1 Univers n 750 mg 9-18 tablet by ity of tablet 00:00: mouth [place] 00 every 24 Medical (twenty-fo Branch ur) hours. loperamide 2020-0 Yes [id number] 2mg Take 1 U nivers 2 mg 9-18 capsule by ity of capsule 00:00: mouth [place] 00 daily. Medical Branch ibuprofen 2020-0 Yes [id number] 800mg Take 1 U nivers 800 mg 9-18 tablet by ity of tablet 00:00: mouth [place] 00 every 6 Medical (six) Branch hours as needed for Pain (scale 4-6). levoFLOXaci 2020-0 Yes [id number] 750mg Take 1 Univers n 750 mg 9-18 tablet by ity of tablet 00:00: mouth [place] 00 every 24 Medical (twenty-fo Branch ur) hours. loperamide 2020-0 Yes [id number] 2mg Take 1 U nivers 2 mg 9-18 capsule by ity of capsule 00:00: mouth [place] 00 daily. Medical Branch ibuprofen 2020-0 Yes [id number] 800mg Take 1 U nivers 800 mg 9-18 tablet by ity of tablet 00:00: mouth [place] 00 every 6 Medical (six) Branch hours as needed for Pain (scale 4-6). levoFLOXaci 2020-0 Yes [id number] 750mg Take 1 Univers n 750 mg 9-18 tablet by ity of tablet 00:00: mouth [place] 00 every 24 Medical (twenty-fo Branch ur) hours. loperamide 2020-0 Yes [id number] 2mg Take 1 U nivers 2 mg 9-18 capsule by ity of capsule 00:00: mouth [place] 00 daily. Medical Branch ibuprofen 2020-0 Yes [id number] 800mg Take 1 U nivers 800 mg 9-18 tablet by ity of tablet 00:00: mouth [place] 00 every 6 Medical (six) Branch hours as needed for Pain (scale 4-6). levoFLOXaci 2020-0 Yes [id number] 750mg Take 1 Univers n 750 mg 9-18 tablet by ity of tablet 00:00: mouth [place] 00 every 24 Medical (twenty-fo Branch ur) hours. loperamide 2020-0 Yes [id number] 2mg Take 1 U nivers 2 mg 9-18 capsule by ity of capsule 00:00: mouth [place] 00 daily. Medical Branch ibuprofen 2020-0 Yes [id number] 800mg Take 1 U nivers 800 mg 9-18 tablet by ity of tablet 00:00: mouth [place] 00 every 6 Medical (six) Branch hours as needed for Pain (scale 4-6). levoFLOXaci 2020-0 Yes [id number] 750mg Take 1 Univers n 750 mg 9-18 tablet by ity of tablet 00:00: mouth [place] 00 every 24 Medical (twenty-fo Branch ur) hours. loperamide 2020-0 Yes [id number] 2mg Take 1 U nivers 2 mg 9-18 capsule by ity of capsule 00:00: mouth [place] 00 daily. Medical Branch ibuprofen 2020-0 Yes [id number] 800mg Take 1 U nivers 800 mg 9-18 tablet by ity of tablet 00:00: mouth [place] 00 every 6 Medical (six) Branch hours as needed for Pain (scale 4-6). levoFLOXaci 2020-0 Yes [id number] 750mg Take 1 Univers n 750 mg 9-18 tablet by ity of tablet 00:00: mouth [place] 00 every 24 Medical (twenty-fo Branch ur) hours. loperamide 2020-0 Yes [id number] 2mg Take 1 U nivers 2 mg 9-18 capsule by ity of capsule 00:00: mouth [place] 00 daily. Medical Branch acetaminoph 2019 No [id number] 650mg Take 2 Univers en 325 mg 9-18 09-19 tablets by ity of tablet 00:00: 04:59 mouth [place] 00 :00 every 6 Medical (six) Branch hours as needed for Pain (scale 1-3). acetaminoph No [id number] 650mg Take 2 Univers en 325 mg 9-18 09-19 tablets by ity of tablet 00:00: 04:59 mouth [place] 00 :00 every 6 Medical (six) Branch hours as needed for Pain (scale 1-3). acetaminoph No [id number] 650mg Take 2 Univers en 325 mg 9-18 09-19 tablets by ity of tablet 00:00: 04:59 mouth [place] 00 :00 every 6 Medical (six) Branch hours as needed for Pain (scale 1-3). acetaminoph No [id number] 650mg Take 2 Univers en 325 mg 9-18 09-19 tablets by ity of tablet 00:00: 04:59 mouth [place] 00 :00 every 6 Medical (six) Branch hours as needed for Pain (scale 1-3). acetaminoph No [id number] 650mg Take 2 Univers en 325 mg 9-18 09-19 tablets by ity of tablet 00:00: 04:59 mouth [place] 00 :00 every 6 Medical (six) Branch hours as needed for Pain (scale 1-3). acetaminoph No [id number] 650mg Take 2 Univers en 325 mg 9-18 09-19 tablets by ity of tablet 00:00: 04:59 mouth [place] 00 :00 every 6 Medical (six) Branch hours as needed for Pain (scale 1-3). acetaminoph No [id number] 650mg Take 2 Univers en 325 mg 9-18 09-19 tablets by ity of tablet 00:00: 04:59 mouth [place] 00 :00 every 6 Medical (six) Branch hours as needed for Pain (scale 1-3). acetaminoph No [id number] 650mg Take 2 Univers en 325 mg 9-18 09-19 tablets by ity of tablet 00:00: 04:59 mouth [place] 00 :00 every 6 Medical (six) Branch hours as needed for Pain (scale 1-3). acetaminoph No [id number] 650mg Take 2 Univers en 325 mg 9-18 09-19 tablets by ity of tablet 00:00: 04:59 mouth [place] 00 :00 every 6 Medical (six) Branch hours as needed for Pain (scale 1-3). acetaminoph 2020- No [id number] 650mg Take 2 Univers en 325 mg 9-18 09-19 tablets by ity of tablet 00:00: 04:59 mouth [place] 00 :00 every 6 Medical (six) Branch hours as needed for Pain (scale 1-3). acetaminoph No [id number] 650mg Take 2 Univers en 325 mg 9-18 09-19 tablets by ity of tablet 00:00: 04:59 mouth [place] 00 :00 every 6 Medical (six) Branch hours as needed for Pain (scale 1-3). acetaminoph No [id number] 650mg Take 2 Univers en 325 mg 9-18 09-19 tablets by ity of tablet 00:00: 04:59 mouth [place] 00 :00 every 6 Medical (six) Branch hours as needed for Pain (scale 1-3). acetaminoph No [id number] 650mg Take 2 Univers en 325 mg 9-18 09-19 tablets by ity of tablet 00:00: 04:59 mouth [place] 00 :00 every 6 Medical (six) Branch hours as needed for Pain (scale 1-3). acetaminoph No [id number] 650mg Take 2 Univers en 325 mg 9-18 10-08 tablets by ity of tablet 00:00: 00:00 mouth [place] 00 :00 every 6 Medical (six) Branch hours as needed for Pain (scale 1-3). ibuprofen 2019-2019- No [id number] 800mg Take 1 Univers 800 mg 9-18 10-08 tablet by ity of tablet 00:00: 00:00 mouth [place] 00 :00 every 6 Medical (six) Branch hours as needed for Pain (scale 4-6). levoFLOXaci 2019- No [id number] 750mg Take 1 Univers n 750 mg 9-18 10-08 tablet by ity o f tablet 00:00: 00:00 mouth [place] 00 :00 every 24 Medical (twenty-fo Branch ur) hours. loperamide 2019- No [id number] 2mg Take 1 Univers 2 mg 9-18 [...] [place] mg 00 :28 dose on Medical Thu Branch 05/09/20 at 1630, Until Discontinu ed, Routine
Reason for Anti-Infec tive: Documented Infection< br>Documen dain Infection Site: Abdominal< br>Duratio n of Therapy: 14 days magnesium 2020-0 2020- No 4g 4 g, IV Univ ers sulfate in 05-08 Piggyback, it y of water 4 12:30: 12:54 ONCE, 1 [place] gram/50 mL 00 :00 dose, [facility] Medi mariusz (8 %) IV 05/08/20 at Branc h Piggyback 4 0730, g Routine loperamide 2019-0 Yes 2mg 2 mg, Univer s (IMODIUM 15 Oral, Q4H, ity o f A-D) 01:00: First dose [place] capsule 2 00 on Mon Medical mg 05/07/20 at Branch 2000, Until Discontinu ed, Routine lactated 2020-0 2020- No 1000mL at 999 Univ ers ringers IV 05-07-14 mL/hr, ity of infusion 22:15: 22:21 1,000 mL, [place] 1,000 mL 00 :00 Intravenou Medic al s, ONCE, 1 Branch dose, 05/07/20 at 1715, Routine lactated 2020-0 2020- No 1000mL at 999 Univ ers ringers IV 05-07 mL/hr, ity of infusion 13:15: 14:09 1,000 mL, [place] 1,000 mL 00 :00 Intravenou Medic al s, ONCE, 1 [place] dose, [facility] 05/07/20 at 0815, Routine HYDROcodone 2020-0 Yes 1{tbl} 1 tablet, Univers -acetaminop 05-07 Oral, ity of hen (NORCO 13:00: Q6HPRN, [place] 5) 5-325 mg 00 Starting [facility] tablet 1 Mon [place] tablet 05/07/20 at 0800, Until Discontinu ed, Routine, Pain (scale 4-6) magnesium 2020-0 2020- No 2g 2 g, IV Univ ers sulfate in 05-07 Piggyback, it y of water 2 13:00: 15:10 ONCE, 1 [place] gram/50 mL 00 :00 dose, [facility] (4 %) 05/07/20 at [place] infusion 2 0800, g Routine ibuprofen 2020-0 Yes 800mg 800 mg, Univ ers (IBU) 05-07 Oral, ity of tablet 800 12:45: Q6HPRN, [place] mg 22 Starting [facility] 05/07/20 at 0745, Until Discontinu ed, Routine, Pain (scale 4-6) FENTanyl PF 2020-0 2020- No Slow IV Un piyush (SUBLIMAZE 05-05 Push, PRN, it y of (PF)) 18:53: 20:05 Starting [place] injection 39 :03 [facility] 05/05/20 at Branch 1353, Until Discontinu ed, Routine lidocaine 2020-0 2020- No PRN, Univers 1% (PF) 05-05 Starting ity of (XYLOCAINE) 18:26: 18:26 Sat [place] injection 34 :34 05/05/20 at [facility] 1326, Branch Until Discontinu ed, Routine NaCl 0.9% 2020-0 2020- No CONTINUOUS U nivers (NS) bolus 05-05 PRN, ity of infusion 18:15: 18:15 Starting [place] 06 :06 [facility] 05/05/20 at Branch 1315, Until Discontinu ed, STAT D5W 0.45% 2020-0 2020- No IV Univers NaCl 05-05 Infusion, ity [...] br>Duratio n of Therapy: 7 days morpHINE 2019-0 2020- No 2mg 2 mg, Slow Un [...] at 0745, Routine, Pain (scale 4-6) acetaminoph 2019-0 Yes 650mg 650 mg, Un piyush en 05-05 Oral, ity of (TYLENOL) 06:15: Q6HPRN, [place] tablet 650 23 Starting Medic al mg [...] dose, 05/04/20 at 2230, STAT FENTanyl PF 2019-0 2020- No 50ug 50 mcg, Un piyush (SUBLIMAZE 05-05 Slow IV ity o f (PF)) 03:15: 03:19 Push, [place] injection 00 :00 ONCE, 1 Medical 50 mcg dose, Fri Branch 05/04/20 at 2215, Routine ondansetron 2019-0 2020- No 4mg 4 mg, Slow Univers (ZOFRAN 05-05 IV Push, ity of (PF)) 03:15: 03:18 ONCE, 1 [place] injection 4 00 :00 dose, Fri Med ical mg 05/04/20 at Branch 2215, JOÃO ketorolac 2020-0 2020- No 60mg 60 mg, Unive rs (TORADOL) 05-03 09-10 Intramuscu ity of injection 05:00: 05:14 lar, [...] Indication s: acute pain ibuprofen 2020-0 Yes [id number] 400mg Take 2 Univers 200 mg 9-08 tablets by ity of tablet 00:00: mouth [place] 00 every 6 Medical (six) Branch hours as needed for Pain (scale 1-3). ibuprofen 2020-0 Yes [id number] 400mg Take 2 Univers 200 mg 9-08 tablets by ity of tablet 00:00: mouth [place] 00 every 6 Medical (six) Branch hours as needed for Pain (scale 1-3). ibuprofen 2020-0 Yes [id number] 400mg Take 2 Univers 200 mg 9-08 tablets by ity of tablet 00:00: mouth [place] 00 every 6 Medical (six) Branch hours as needed for Pain (scale 1-3). ibuprofen 2020-0 Yes [id number] 400mg Take 2 Univers 200 mg 9-08 tablets by ity of tablet 00:00: mouth [place] 00 every 6 Medical (six) Branch hours as needed for Pain (scale 1-3). ibuprofen 2020-0 Yes [id number] 400mg Take 2 Univers 200 mg 9-08 tablets by ity of tablet 00:00: mouth [place] 00 every 6 Medical (six) Branch hours as needed for Pain (scale 1-3). ibuprofen 2020-0 Yes [id number] 400mg Take 2 Univers 200 mg 9-08 tablets by ity of tablet 00:00: mouth [place] 00 every 6 Medical (six) Branch hours as needed for Pain (scale 1-3). ibuprofen 2020-0 Yes [id number] 400mg Take 2 Univers 200 mg 9-08 tablets by ity of tablet 00:00: mouth [place] 00 every 6 Medical (six) Branch hours as needed for Pain (scale 1-3). acetaminoph 2020-0 1- No [id number] 650mg Take 2 Univers en 9-08 09-09 tablets by ity of (TYLENOL) 00:00: 04:59 mouth [place] 325 mg 00 :00 every 6 Medical tablet (six) Branch hours as needed for Pain (scale 4-6). acetaminoph 2020-0 1- No [id number] 650mg Take 2 Univers en 9-08 09-09 tablets by ity of (TYLENOL) 00:00: 04:59 mouth [place] 325 mg 00 :00 every 6 Medical tablet (six) Branch hours as needed for Pain (scale 4-6). acetaminoph 2020- No [id number] 650mg Take 2 Univers en 05-01 tablets by ity of (TYLENOL) 00:00: 04:59 mouth [place] 325 mg 00 :00 every 6 Medical tablet (six) Branch hours as needed for Pain (scale 4-6). acetaminoph 2020- No [id number] 650mg Take 2 Univers en 05-01 tablets by ity of (TYLENOL) 00:00: 04:59 mouth [place] 325 mg 00 :00 every 6 Medical tablet (six) Branch hours as needed for Pain (scale 4-6). acetaminoph 2020- No [id number] 650mg Take 2 Univers en 05-01 tablets by ity of (TYLENOL) 00:00: 04:59 mouth [place] 325 mg 00 :00 every 6 Medical tablet (six) Branch hours as needed for Pain (scale 4-6). acetaminoph 2020- No [id number] 650mg Take 2 Univers en 05-01 tablets by ity of (TYLENOL) 00:00: 04:59 mouth [place] 325 mg 00 :00 every 6 Medical tablet (six) Branch hours as needed for Pain (scale 4-6). acetaminoph 2020- No [id number] 650mg Take 2 Univers en 05-01 tablets by ity of (TYLENOL) 00:00: 04:59 mouth [place] 325 mg 00 :00 every 6 Medical tablet (six) Branch hours as needed for Pain (scale 4-6). ciprofloxac 2019-2019- No [id number] 750mg Take 1 Univers in HCl 750 05-01 tablet by ity of mg tablet 00:00: 04:59 mouth [place] 00 :00 every 12 Medical (twelve) Branch hours for 14 days. amoxicillin 2019-2019- No [id number] 1{tbl} Take 1 Univers -clavulanat 05-01 tablet by it y of e 00:00: 04:59 mouth 2 [place] (AUGMENTIN) 00 :00 (two) Medical 875-125 mg times Branch per tablet daily for 14 days. ciprofloxac 2019-2019- No [id number] 750mg Take 1 Univers in HCl 750 05-01 tablet by ity of mg tablet 00:00: 04:59 mouth [place] 00 :00 every 12 Medical (twelve) Branch hours for 14 days. amoxicillin 2019- No [id number] 1{tbl} Take 1 Univers -clavulanat 05-01 tablet by it y of e 00:00: 04:59 mouth 2 [place] (AUGMENTIN) 00 :00 (two) Medical 875-125 mg times Branch per tablet daily for 14 days. ciprofloxac 2019-2019- No [id number] 750mg Take 1 Univers in HCl 750 05-01 tablet by ity of mg tablet 00:00: 04:59 mouth [place] 00 :00 every 12 Medical (twelve) Branch hours for 14 days. amoxicillin 2019- No [id number] 1{tbl} Take 1 Univers -clavulanat 05-01 tablet by it y of e 00:00: 04:59 mouth 2 [place] (AUGMENTIN) 00 :00 (two) Medical 875-125 mg times Branch per tablet daily for 14 days. ciprofloxac 2019-2019- No [id number] 750mg Take 1 Univers in HCl 750 05-01 tablet by ity of mg tablet 00:00: 04:59 mouth [place] 00 :00 every 12 Medical (twelve) Branch hours for 14 days. amoxicillin 2019- No [id number] 1{tbl} Take 1 Univers -clavulanat 05-01 tablet by it y of e 00:00: 04:59 mouth 2 [place] (AUGMENTIN) 00 :00 (two) Medical 875-125 mg times Branch per tablet daily for 14 days. ciprofloxac 2019-2019- No [id number] 750mg Take 1 Univers in HCl 750 05-01 tablet by ity of mg tablet 00:00: 04:59 mouth [place] 00 :00 every 12 Medical (twelve) Branch hours for 14 days. amoxicillin 2019- No [id number] 1{tbl} Take 1 Univers -clavulanat 05-01 tablet by it y of e 00:00: 04:59 mouth 2 [place] (AUGMENTIN) 00 :00 (two) Medical 875-125 mg times Branch per tablet daily for 14 days. ciprofloxac 2019-0 2020- No [id number] 750mg Take 1 Univers in HCl 750 05-01 tablet by ity of mg tablet 00:00: 04:59 mouth [place] 00 :00 every 12 Medical (twelve) Branch hours for 14 days. amoxicillin 2019- 2020- No [id number] 1{tbl} Take 1 Univers -clavulanat 05-01 tablet by it y of e 00:00: 04:59 mouth 2 [place] (AUGMENTIN) 00 :00 (two) Medical 875-125 mg times Branch per tablet daily for 14 days. ciprofloxac 2019-2019- No [id number] 750mg Take 1 Univers in HCl 750 05-01 tablet by ity of mg tablet 00:00: 04:59 mouth [place] 00 :00 every 12 Medical (twelve) Branch hours for 14 days. amoxicillin 2019-2019- No [id number] 1{tbl} Take 1 Univers -clavulanat 05-01 tablet by it y of e 00:00: 04:59 mouth 2 [place] (AUGMENTIN) 00 :00 (two) Medical 875-125 mg times Branch per tablet daily for 14 days. acetaminoph 2019- 2020- No [id number] 650mg Take 2 Univers en 05-01 tablets by ity of (TYLENOL) 00:00: 00:00 mouth [place] 325 mg 00 :00 every 6 Medical tablet (six) Branch hours as needed for Pain (scale 4-6). ibuprofen 2019- 2020- No [id number] 400mg Take 2 Univers 200 mg 05-01 tablets by ity of tablet 00:00: 00:00 mouth [place] 00 :00 every 6 Medical (six) Branch hours as needed for Pain (scale 1-3). ciprofloxac 2019- 2020- No [id number] 750mg Take 1 Univers in HCl 750 05-01 tablet by ity of mg tablet 00:00: 00:00 mouth [place] 00 :00 every 12 Medical (twelve) Branch hours for 14 days. amoxicillin 2019- 2020- No [id number] 1{tbl} Take 1 Univers -clavulanat 05-01 tablet [...] 04-25 Oral, ity of e 01:00: Q12H, [place] (AUGMENTIN) 00 First dose Me dical 875-125 [...] of 350 23:30: 23:30 s, ONCE, 1 [place] BULK-100 00 :00 dose, Mon Medica l mL) 04/23/20 at Branch injection 1830, 100 mL Routine lactated 2020-0 2020- No 1000mL at 125 Univ ers ringers IV 04-23-01 mL/hr, ity of infusion 23:15: 16:44 1,000 mL, [place] 1,000 mL 00 :20 IV Medical Infusion, Branch CONTINUOUS , Starting 04/23/20 at 1815, Until Thu04/24/20 at 1144, Routine NaCl 0.9% 2020-0 2020- No 1000mL at 999 Uni vers (NS) bolus 04-23 mL/hr, ity of infusion 16:30: 16:14 1,000 mL, [place] 1,000 mL 00 :00 IV Medical [facility], [place] ONCE, 1 dose, 04/23/20 at 1130, STAT [...] 00 First dose Med ical mg on [facility] 04/21/20 at 1800, Until Discontinu ed, JOÃO
Re ason for Anti-Infec tive: Documented Infection< br>Documen dain Infection Site: Abdominal< br>Duratio n of Therapy: 7 days aspirin 2019- Yes 81mg 81 mg, Univers chewable 04-21 Oral, ity of tablet 81 14:00: DAILY, [place] mg 00 First dose Medical on [facility] 04/21/20 at 0900, Until Discontinu ed, Routine multivitami 2019-0 Yes 1{tbl} 1 tablet, Univers n tablet 1 04-21 Oral, ity of tablet 14:00: DAILY, [place] 00 First dose Medical on [facility] 04/21/20 at 0900, Until Discontinu ed, Routine amoxicillin 2019- 2020- No 500mg 500 mg, U nivers -pot 04-21 Oral, TID, ity of clavulanate 13:00: 14:44 First dose [place] 500 mg 00 :32 on [facility] (AUGMENTIN 04/21/20 at [facility] 500) 0800, 500-125 mg Until tablet 500 [...] 50mg 50 mg, Univer s (ULTRAM) 04-20 Oral, ity of tablet 50 15:31: 11:12 Q6HPRN, [place] mg 23 :14 Starting Medical Fri Branch 04/20/20 at 1031, Until Thu05/02/20 at 0612, Routine, Pain (scale 7-10) D5W 0.45% 2019- No IV Univers NaCl 04-19 Infusion, ity of (1/2NS) 1 L 16:15: 11:41 at 20 [place] + KCL 20 00 :10 mL/hr, Medical mEq CONTINUOUS Branch , Starting [place] 04/19/20 at 1115, Until Thu04/20/20 at 0641, Routine pantoprazol 2019-0 Yes 40mg 40 mg, Univ ers e 04-19 Oral, ity of (PROTONIX) 14:00: DAILY, [place] EC tablet 00 First dose Medi mariusz 40 mg on [facility] Branch 04/19/20 at 0900, Until Discontinu ed, Routine acetaminoph 2020-0 Yes 500mg 500 mg, Un piyush en 04-19 Oral, ity of (TYLENOL) 11:00: Q6HPRN, [place] tablet 500 00 Starting Medic al mg [facility] Branch 04/19/20 at 0600, Until Discontinu ed, Routine, Pain (scale 4-6), Temp > 38.5 C D5W 0.45% 2020- No IV Univers NaCl 04-18 Infusion, ity of (1/2NS) 1 L 15:00: 16:05 at 42 [place] + KCL 20 00 :11 mL/hr, Medical mEq CONTINUOUS Branch , Starting 04/18/20 at 1000, Until [place] 04/19/20 at 1105, Routine ciprofloxac 2019- No 500mg 500 mg, U nivers in HCl 04-18 Oral, ity of (CIPRO) 01:45: 15:30 Q12HA2, [place] tablet 500 00 :34 First dose Med ical mg on [facility] 04/17/20 at 2045, Until Discontinu ed, JOÃO
[...] [place] mg 09 :33 Starting Medical [facility] Branch 04/17/20 at 1211, Until Thu04/20/20 at 1031, Routine, Pain (scale 4-6), Pain (scale 7-10) aspirin 2019- No 325mg 325 mg, Unive rs tablet 325 04-17 Oral, ity of mg 14:00: 15:33 DAILY, [place] 00 :03 First dose Medical on [facility] 04/17/20 at 0900, Until Discontinu ed, Routine lidocaine 2019- No PRN, Univers 1% (PF) 04-16 Starting ity of (XYLOCAINE) 21:17: 21:17 Mon [place] injection 53 :53 04/16/20 at [facility] 1617, Branch Until [facility] 04/16/20 at 1617, Routine FENTanyl PF 2020- No Slow IV Un piyush (SUBLIMAZE 04-16 Push, PRN, it y of (PF)) 21:16: 21:16 Starting [place] injection 07 :07 [facility] Medical 04/16/20 at Branch 1616, Until [facility] 04/16/20 at 1616, Routine midazolam 2019- No IV Push, Uni vers (VERSED) 04-16 PRN, ity of injection 21:16: 21:16 Starting [place] 07 :07 [facility] Medical 04/16/20 at [place] 1616, Until [facility] 04/16/20 at 1616, Routine piperacilli 2019- No [...] dose, Mon Medica l mL) 04/16/20 at [place] injection 0215, 120 mL Routine DAPTOmycin 2019- No 500mg 500 mg, IV Univers (CUBICIN) 04-16 Piggyback, ity of 500 mg in 02:15: 01:11 Q24H ABX, [place] NaCl 0.9% 00 :00 4 doses, Medica l (NS) First dose Branch piggyback (after last reorder) on 04/15/20 at 2115, Last dose on Thu04/18/20 at 2115, 100 mL
Reas on for Anti-Infec tive: Empiric Therapy for Suspected Infection< br>Empiric Therapy Site: Abdominal< br>Duratio n of therapy: 7 days
Re stricted use approved by: [employer] lactated 2020- No 1000mL at 100 Univ ers ringers [...] 1211, Routine, Pain (scale 7-10) FENTanyl PF 2020- No Slow IV Un piyush (SUBLIMAZE 04-13 Push, PRN, it y of (PF)) 19:31: 19:55 Starting [place] injection 48 :00 Fri Medical 04/13/20 at Branch 1431, Until Thu04/13/20 at 1455, Routine midazolam 2019- 2020- No IV Push, Uni vers (VERSED) 04-13 PRN, ity of injection 19:31: 19:55 Starting [place] 36 :00 Fri Medical 04/13/20 at Branch 1431, Until Thu04/13/20 at 1455, Routine DAPTOmycin 2019- 2020- No 500mg 500 mg, IV [...] 1645, Until 04/14/20 at 0601, Routine iohexol No 100mL 100 mL, Unive rs (OMNIPAQUE [...] dose, [place] Branch 04/12/20 at 1200, Routine
team member approving Restricted medication : BIA PEDRO [...] Medi mariusz (8 %) IV 04/10/20 at Branc h Piggyback 4 0830, g Routine DAPTOmycin 2019- No 500mg 500 mg, IV Univers (CUBICIN) 04-10 Piggyback, ity of 500 mg in 06:00: 15:57 Q24H ABX, [place] NaCl 0.9% 00 :33 First dose Medi mariusz (NS) on [facility] Branch piggyback 04/10/20 at 0100, Until Discontinu ed, 100 mL
R mitali for Anti-Infec tive: Documented Infection< br>Documen dain Infection Site: Abdominal< br>Duratio n of Therapy: 7 days
Re stricted use approved by: [employer] ibuprofen 2019- No 600mg 600 mg, Uni vers (IBU) 04-10 Oral, Q8H, ity of tablet 600 03:00: 10:59 First dose [place] mg 00 :06 on [facility] Medical 04/09/20 at Branch 2200, Until Discontinu ed, Routine micafungin 2019- No 100mg 100 mg, IV Univers (MYCAMINE) 04-10 Piggyback, it y of 100 mg in 02:45: 15:57 Q24H ABX, [place] NaCl 0.9% 00 :33 First dose Medi mariusz (NS) 100 mL on [facility] MINI-BAG 04/09/20 at 2145, Until Discontinu ed, [...] First dose Medi mariusz 0.9% (NS) on [facility] Branch 100 mL 04/09/20 at MINI-BAG 2145, Until Discontinu ed, 100 mL
Reas on for Anti-Infec tive: Documented Infection< br>Documen dain Infection Site: Abdominal< br>Duratio n of Therapy: 7 days acetaminoph 2019- 2020- No 500mg 500 mg, U nivers en 04-09 Oral, Q6H, ity of (TYLENOL) 23:00: 10:54 First dose [place] tablet 500 00 :23 on [facility] Medical mg 04/09/20 at Branch 1800, Until [...] in 20 :43 Starting Medica l lactated [facility] ringers 04/09/20 at 1,000 mL 1243, infusion [...] Routine
Indicatio n: Perioperat ector Patient sodium 2020-0 2020- No Topical, Univer s hypochlorit 04-09 BID, First i ty of e 0.025% 13:00: 14:50 dose on ([facility]) 00 :18 [facility] Medical solution 04/09/20 at [facility] h 0800, Until Discontinu ed, Routine magnesium 2019- 2020- No 2g 2 g, IV Univ ers sulfate in 04-09 Piggyback, it y of water 2 12:00: 12:00 ONCE, 1 [place] gram/50 mL 00 :00 dose, Mon Medi mariusz (4 %) 04/09/20 at Branch infusion 2 0700, g Routine potassium 2019- No 44meq 44 mEq, IV Univers phosphate 04-09 Piggyback, ity of 44 mEq in 12:00: 13:04 ONCE, 1 [place] NaCl 0.9% 00 :00 dose, Mon Medic al (NS) 250 mL 04/09/20 at Br anch piggyback 0700, 250 mL Total 2019- No at 85 Univers Parenteral 04-08 mL/hr, ity of Nutrition 22:00: 21:45 2,040 mL, [place] 00 :00 TPNCONTINU Medical OUS, 1 Branch dose, First dose (after last modificati on) on 04/08/20 at 1700 acetaminoph 2019- No 1000mg 1,000 mg, Univers en ADULT 04-08 IV ity of (IRMEV) 17:00: 11:15 Infusion, [place] injection 00 :00 Administer Medi mariusz 1,000 mg over 15 Branch Minutes, Q6H, 4 doses, First dose (after last modificati on) on 04/08/20 at 1200, Last dose on 04/09/20 at 0600, Routine
Indicatio n: Perioperat ector Patient acetaminoph 2019- No 1000mg 1,000 mg, Univers en ADULT 04-07 IV ity of (OFIRMEV) 23:00: 14:28 Infusion, [place] injection 00 :31 Administer Medi mariusz 1,000 mg over 15 Branch Minutes, Q6H, 4 doses, First dose (after last reorder) on 04/07/20 at 1800, Last dose on 04/08/20 at 1200, Routine
Indicatio n: Perioperat ector Patient D5W-LR IV 2019- 2020- No 1000mL at 60 Univ ers infusion 04-07 mL/hr, IV ity o f 1,000 mL 22:45: 15:29 Infusion, [place] 00 :52 CONTINUOUS Medical , Starting Branch 04/07/20 at 1745, Until 04/08/20 at 1029, Routine Total 2020-0 2020- No at 85 Univers Parenteral 04-07-16 mL/hr, ity of Nutrition 22:00: 22:05 2,040 mL, [place] 00 :00 TPNCONTINU Medical OUS, 1 Branch dose, First dose on 04/07/20 at 1700 fluconazole 2019-0 2020- No 400mg at 100 Un piyush (DIFLUCAN) 04-07 08-18 mL/hr, IV ity of IV 20:00: 01:35 Piggyback, [place] Piggyback 00 :07 Q24H ABX, Medic al 400 mg First dose Branch on 04/07/20 at 1500, Until Discontinu ed, JOÃO multivitami 2020- No 15mL 15 mL, Uni vers n (CENTRUM) 04-0728 Enteral, ity of solution 15 14:00: 15:31 DAILY, [place] mL 00 :33 First dose Medical (after Branch last modificati on) on 04/07/20 at 0900, Until Discontinu ed, Routine heparin 2020- No 5000U 5,000 Univers (porcine) 04-07 08-19 Units, ity of injection 11:00: 11:53 Subcutaneo [place] 5,000 Units 00 :30 us, Q8H, Medi mariusz First dose Branch on 04/07/20 at 0600, Until Discontinu ed, Routine D5W-LR IV 2019-0 2020- No 1000mL at 150 Uni vers [...] 2200, Until 04/07/20 at 0343, Routine hydrocortis 0 2020- No 50mg 50 mg, IV Univers one sod 8-15 08-16 Piggyback, ity o f succ 02:00: 02:09 [...]
Indicatio n: Perioperat ector Patient albumin 2019- 2020- No 25g 25 g, IV Unive [...] No 800mg at 100 Un piyush (DIFLUCAN) 04-06-14 mL/hr, IV ity of IV 21:15: 22:10 [...] mL/hr), IV Me dical NaCl 0.9% Infusion, Branc h (NS) 100 mL CONTINUOUS infusion , Starting Thu04/06/20 at 1600 magnesium 2019- No 4g 4 g, IV Univ ers sulfate in 04-0615 Piggyback, it y of water 4 21:00: 00:03 ONCE, 1 [place] gram/50 mL 00 :00 dose, Thu Medi mariusz (8 %) IV 04/06/20 at Branc h Piggyback 4 1600, g Routine lactated 2020- No 1000mL at 999 Univ ers ringers IV 04-06 08-14 mL/hr, ity of infusion 20:01: 20:15 1,000 mL, [place] 1,000 mL 00 :00 Intravenou Medic al s, ONCE, 1 Branch dose, Thu04/06/20 at 1515, STAT meropenem 2019- 2020- No 1000mg 1,000 mg, Univers (MERREM) 04-06 08-18 IV ity of 1,000 mg in 19:30: 01:35 Piggyback, [place] NaCl 0.9% 00 :07 Administer Medi mariusz [...] 1430, Until Thu04/06/20 at 2150, Routine lactated 2019-0 2020- No 500mL at 999 Unive rs ringers IV 04-06 08-14 mL/hr, 500 it y of infusion 19:30: 19:30 mL, [place] 500 mL 00 :00 Intravenou Medical s, ONCE, 1 Branch dose, Thu04/06/20 at 1430, Routine NORepinephr 2019-0 2020- No .05ug/k 0.05-1.5 Univers ine 4 mg [...] allowed dose, contact prescriber .
fentaNYL PF 2019- No 25ug/h 25-200 U nivers (SUBLIMAZE) 04-06 [...] 2mg 2 mg, Slow U nivers (ATIVAN) 04-0616 IV Push, ity of injection 2 16:46: 14:23 Q4HPRN, [place] mg 54 :22 Starting Medical Fri Branch 04/06/20 at 1146, Until 04/08/20 at 0923, Routine, Agitation, Sedation lactated 2020-0 2020- No 1000mL at 150 Univ ers ringers IV 04-06 mL/hr, ity of infusion 16:15: 18:30 1,000 mL, [place] 1,000 mL 00 :12 IV Medical Infusion, [facility] , Starting Thu04/06/20 at 1115, Until Thu04/06/20 at 1330, Routine sodium 2020-0 2020- No ONCE INTRA Univ ers bicarbonate 04-06 PROCEDURE, i ty of 8.4 % (1 16:10: 16:29 [place] mEq/mL) 00 :35 Fri Medical injection 04/06/20 at [facility] 1110, Until Thu04/06/20 at 1129, Routine, Intra-op sodium 2020-0 2020- No ONCE INTRA Univ ers bicarbonate 04-06 PROCEDURE, i ty of 8.4 % (1 16:10: 16:29 [place] mEq/mL) 00 :35 Fri Medical injection 04/06/20 at [facility] 1110, Until Thu04/06/20 at 1129, Routine, [...] 00 :35 Fri Medical infusion 04/06/20 at [facility] 1029, Until Thu04/06/20 at 1129, Routine, Intra-op EPINEPHrine 2020-0 2020- No CONTINUOUS Univers 1 mg in 04-06 PRN, ity of NaCl 0.9% 15:29: 16:29 Starting [place] (NS) 00 :35 Fri Medical infusion 04/06/20 at [facility] 1029, Until Thu04/06/20 at 1129, Routine, Intra-op piperacilli 2020-0 2020- No CONTINUOUS Univers n-tazobacta 04-06 PRN, ity of m (ZOSYN) 14:57: 16:29 Starting [place] 3.375 g in 00 :35 Fri Medical NaCl 0.9% 04/06/20 at [facility] (NS) 100 mL 0957, infusion Until Discontinu ed, 100 mL, Intra-op piperacilli 2020-0 2020- No CONTINUOUS Univers n-tazobacta 04-06 PRN, ity of m (ZOSYN) 14:57: 16:29 Starting [place] 3.375 g in 00 :35 [facility] Medical NaCl 0.9% 04/06/20 at [facility] (NS) 100 mL 0957, infusion Until Discontinu ed, 100 mL, Intra-op EPINEPHrine 2020-0 2020- No ONCE INTRA Univers 1:1,000 (1 04-06 PROCEDURE, it y of mg/mL) 14:54: 16:29 Starting [place] (ADRENALIN) 00 :35 Fri Medical injection 04/06/20 at [facility] 0954, Until Discontinu ed, Routine, Intra-op EPINEPHrine 2020-0 2020- No ONCE INTRA Univers 1:1,000 (1 04-06 PROCEDURE, it y of mg/mL) 14:54: 16:29 Starting [place] (ADRENALIN) 00 :35 Fri Medical injection 04/06/20 at [facility] 0954, Until Discontinu ed, Routine, Intra-op NORepinephr 2020-0 2020- No CONTINUOUS Univers ine 8-14 08-14 PRN, ity of (LEVOPHED) 14:39: 16:29 [place] 4 mg in 00 :35 Fri Medical NaCl 0.9% 04/06/20 at [facility] (NS) 250 mL 0939, infusion Intra-op NORepinephr 2020-0 2020- No CONTINUOUS Univers ine 04-06 PRN, ity of (LEVOPHED) 14:39: 16:29 [place] 4 mg in 00 :35 Fri Medical NaCl 0.9% 04/06/20 at [facility] (NS) 250 mL 0939, infusion Intra-op [...] 2020-0 2020- No Intravenou Univers ne 04-06 08-14 s, ONCE ity of (VAZCULEP) 14:22: 16:29 INTRA [place] injection 00 :35 PROCEDURE, Medi mariusz Starting Branch 04/06/20 at 0922, Until Thu04/06/20 at 1129, Routine, Intra-op phenylephri 2020-0 2020- No Intravenou Univers ne 04-06-14 s, ONCE ity of (VAZCULEP) 14:22: 16:29 INTRA [place] injection 00 :35 PROCEDURE, Medi mariusz Starting Branch 04/06/20 at 0922, Until Thu04/06/20 [...] Fri Medical mL (1 %) 04/06/20 at [facility] h injection 0915, Until Thu04/06/20 at 1129, [...] of 14:15: 16:29 Starting [place] 00 :35 [facility] 04/06/20 at Branch 0915, Until Thu04/06/20 at 1129, Routine, Intra-op lidocaine 2020-0 2020- No ONCE INTRA U nivers 1% 04-06 PROCEDURE, ity of (XYLOCAINE) 14:15: 16:29 Starting [place] 100 mg/10 00 :35 [facility] Medical mL (1 %) 04/06/20 at [facility] h injection 0915, Until Thu04/06/20 at 1129, Routine, Intra-op FENTanyl PF 2020-0 2020- No ONCE INTRA Univers (SUBLIMAZE 04-06 PROCEDURE, it y of (PF)) 14:15: 16:29 Starting [place] injection 00 :35 [facility] 04/06/20 at Branch 0915, Until Thu04/06/20 at 1129, Routine, Intra-op albumin 2020-0 2020- No CONTINUOUS Uni vers (ALBUMINAR- 04-06 PRN, ity of 5) 5 % 14:: 16:29 Starting [place] injection 00 :35 [facility] 04/06/20 at Branch [facility], Until Discontinu ed, Intra-op lactated 2020-0 2020- No CONTINUOUS Un piyush ringers IV 04-06 PRN, ity of infusion 14:: 16:29 [place] 00 :35 [facility] 04/06/20 at Branch 0910, Until Discontinu ed, Routine, Intra-op albumin 2020-0 2020- No CONTINUOUS Uni vers (ALBUMINAR- 04-06 PRN, ity of 5) 5 % 14:10: 16:29 Starting [place] injection 00 :35 [facility] 04/06/20 at Branch 09, Until Discontinu ed, Intra-op lactated 2020-0 2020- No CONTINUOUS Un piyush ringers IV 04-06 PRN, ity of infusion 14:: 16:29 [place] 00 :35 [facility] 04/06/20 at Branch [facility], Until Discontinu ed, Routine, Intra-op lactated 2020-0 2020- No 1000mL at 999 Univ ers ringers IV 04-06 mL/hr, ity of infusion 12:30: 12:37 1,000 mL, [place] 1,000 mL 00 :00 Intravenou Medic al s, ONCE, 1 Branch dose, 04/06/20 at 0730, Routine methocarbam 2020-0 2020- No [...] 2000, Until Discontinu ed, 100 mL acetaminoph 2019-0 2020- No 1000mg 1,000 mg, Univers en ADULT 04-05 IV ity of (OFIRMEV) 23:00: 22:59 Infusion, [place] injection 00 :00 Administer Medi mariusz 1,000 mg over 15 Branch Minutes, Q6H, 4 doses, First dose on Thu04/05/20 at 1800, Last dose on Thu04/06/20 at 1200, Routine
Indicatio n: Perioperat ector Patient D5W 0.45% 2019-0 2020- No IV Univers NaCl 04-05 Infusion, [...] mg 1200, Until Discontinu ed, Routine methocarbam 2019-0 2020- No 500mg 500 mg, U nivers ol 8-13 08-13 Oral, QID, ity of (ROBAXIN) 13:00: 20:23 [...] h Piggyback 4 0715, g Routine ketorolac 2019-0 2020- No 30mg 30 mg, Unive rs (TORADOL) 04-04 Slow IV ity of injection 05:00: 16:23 Push, Q6H, [place] 30 mg 00 :00 3 doses, Medical First dose Branch (after last modificati on) on Thu04/04/20 at 0000, Last dose on Thu04/04/20 at 1200, Routine
team member approving Restricted medication : VENU PEDROA methocarbam 2019-0 2020- No 1000mg 1,000 mg, [...] Routine
Indicatio n: Perioperat ector Patient ondansetron 2020-0 Yes 4mg 4 mg, Slow Univers (ZOFRAN 04-03 IV Push, ity of (PF)) 21:27: Q6HPRN, [place] injection 4 26 Starting Medi mariusz mg [facility] 04/03/20 at 1627, Until Discontinu ed, Routine, Nausea and Vomiting (N/V) alvimopan 2019- No 12mg 12 mg, Unive rs (ENTEREG) 04-03 Oral, ity of capsule 12 13:45: 14:02 ONCE, 1 [place] mg 00 :00 dose, [facility] Medical 04/03/20 at Branch 0845, Routine
Restricte d use approved by: HELENE MEDELLIN - SURGERY/GE NERAL heparin 2019- No 5000U 5,000 Univers (porcine) 04-03 Units, ity of injection 12:00: 12:02 Subcutaneo [place] 5,000 Units 00 :00 , ONCE, Med ical 1 dose, Branch [facility] 04/03/20 at 0700, Routine gabapentin 2019- No 300mg 300 mg, Un piyush (NEURONTIN) 04-03 Oral, ity of 250 mg/5 mL 12:00: 12:02 ONCE, 1 [place] solution 00 :00 dose, [facility] Medica l 300 mg 04/03/20 at [...] 1,000 mL 00 :00 IV Medical Piggyback, [place] ONCE, 1 dose, 04/02/20 at 1745, STAT pantoprazol 2019- No 40mg 40 mg, IV Univers e 04-02 Piggyback, ity of (PROTONIX) 00:15: 10:49 Q24H, [place] 40 mg in 00 :10 First dose Medic al NaCl 0.9% on [place] Branch (NS) 100 mL 04/01/20 at MINI-BAG 1915, Until Discontinu ed, 100 mL D5W 0.45% 2019- 2020- No IV Univers NaCl 04-02 Infusion, ity of (1/2NS) 1 L 00:15: 23:16 at 150 Javi as + KCL 20 00 :16 mL/hr, Medical mEq CONTINUOUS Branch , Starting [place] 04/01/20 at 1915, Until 04/02/20 at 1816, Routine acetaminoph 2019- No 650mg 650 mg, U nivers en 04-01 Oral, ity of (TYLENOL) 23:11: 21:31 Q6HPRN, [place] tablet 650 57 :27 Starting Medic al mg [place] 04/01/20 Branch at 1811, Until 04/03/20 at 1631, Routine, Pain (scale 1-3), Pain (scale 4-6) NaCl 0.9% 2020- No 1000mL at 999 Uni vers (NS) bolus 04-01 mL/hr, ity of infusion 23:10: 00:18 1,000 mL, [place] 1,000 mL 00 :00 IV Medical Piggyback, [place] ONCE, 1 dose, [place] 04/01/20 at 181, STAT lactulose 2019- No 15mL 15 mL, Unive rs (CEPHULAC) 04-01 Oral, ity of solution 15 16:15: 16:01 ONCE, 1 [place] mL 00 :00 dose, [facility] 04/01/20 at Branch 1115, Routine Polyethylen 2019- No 17g 17 g, Univ ers e Glycol 03-31 Oral, BID ity o f 3350 15:45: 23:13 MEALS, [place] (MIRALAX) 00 :14 First dose Medi mariusz powder [address] [facility] 03/31/20 at 1045, Until Discontinu ed, Routine enoxaparin 2019- 2020- No 40mg 40 mg, Univ ers (LOVENOX) 03-31 Subcutaneo ity of injection 14:00: 10:50 us, DAILY, [place] 40 mg 00 :07 First dose Medical on [facility] 03/31/20 at 0900, Until Discontinu ed, Routine D5W-LR IV 2020-0 2020- No 1000mL at 125 Uni vers infusion 03-31-09 mL/hr, IV ity o f 1,000 mL 03:00: 23:13 Infusion, [place] 00 :14 CONTINUOUS Medical , Starting Branch 03/30/20 at 2200, Until 04/01/20 at 1813, Routine ondansetron 2019-0 2020- No 4mg 4 mg, Slow Univers (ZOFRAN 03-31 IV Push, ity of (PF)) 01:51: 21:31 Q6HPRN, [place] injection 4 28 :27 Starting Medi mariusz mg Thu03/30/20 Branch at 2051, Until 04/03/20 at 1631, [...] 1000mL at 999 Uni vers (NS) bolus 03-30- mL/hr, ity of infusion 22:15: 23:43 1,000 mL, [place] 1,000 mL 00 :00 IV Medical Infusion, Branch ONCE, 1 dose, 03/30/20 at 1715, JOÃO metoclopram 2019- 2020- No 5mg 5 mg, Slow Univers tammi HCl 8-05 08-06 IV Push, ity of (REGLAN) 01:00: 00:59 Q12H, 2 [place] injection 5 00 :00 doses, Medica l mg First dose Branch on Thu03/27/20 at 2000, Last dose on Thu03/28/20 at 0800, Routine metoclopram 2020-0 Yes [id number] 5mg Take 1 Univers tammi HCl 8-05 tablet by ity of (REGLAN) 5 00:00: mouth [place] mg tablet 00 every 12 Medica l (twelve) Branch hours as needed for Nausea and Vomiting (N/V) (constipat ion). metoclopram 2020-0 Yes [id number] 5mg Take 1 Univers atmmi HCl 8-05 tablet by ity of (REGLAN) 5 00:00: mouth [place] mg tablet 00 every 12 Medica l (twelve) Branch hours as needed for Nausea and Vomiting (N/V) (constipat ion). metoclopram 2020-0 Yes [id number] 5mg Take 1 Univers tammi HCl 8-05 tablet by ity of (REGLAN) 5 00:00: mouth [place] mg tablet 00 every 12 Medica l (twelve) Branch hours as needed for Nausea and Vomiting (N/V) (constipat ion). metoclopram 2020-0 Yes [id number] 5mg Take 1 Univers tammi HCl 8-05 tablet by ity of (REGLAN) 5 00:00: mouth [place] mg tablet 00 every 12 Medica l (twelve) Branch hours as needed for Nausea and Vomiting (N/V) (constipat ion). metoclopram 2020-0 2020- No [id number] 5mg Take 1 Univers tammi HCl 8-05 [...] at 2200, Until Discontinu ed, Routine ondansetron 2019-0 Yes 4mg 4 mg, Slow Univers (ZOFRAN 03-26 IV Push, ity of (PF)) 02:46: Q6HPRN, [place] injection 4 11 Starting Medi mariusz mg [place] 03/25/20 Branch at 2146, Until Discontinu ed, Routine, Nausea and Vomiting (N/V) acetaminoph 2020-0 Yes 650mg 650 mg, Un piyush en 03-26 Oral, ity of (TYLENOL) 02:46: Q6HPRN, [place] tablet 650 05 Starting Medic al mg [place] 03/25/20 Branch at 2146, Until Discontinu ed, Routine, Pain (scale 1-3) iohexol 2020-0 2020- No 100mL 100 mL, Unive rs (OMNIPAQUE 03-26 Intravenou it y of 350 01:30: 01:30 s, ONCE, 1 [place] BULK-100 00 :00 dose, [place] Medica l mL) 03/25/20 at Branch injection 2030, 100 mL Routine NaCl 0.9% 2020-0 2020- No 1000mL at 999 Uni vers (NS) bolus 03-26 08-03 mL/hr, ity of infusion 00:45: 00:42 1,000 mL, [place] 1,000 mL 00 :00 IV Medical Infusion, Branch ONCE, 1 dose, 03/25/20 at 1945, JOÃO enoxaparin 2020-0 Yes [...] IV Push, ity of (PF)) 04:05: Q6HPRN, [place] injection 4 40 Starting Medi mariusz mg Fri Branch 03/02/20 at 2305, Until Discontinu ed, Routine, Nausea and Vomiting (N/V) acetaminoph 2020-0 Yes 650mg 650 mg, Un piyush en 11 Oral, ity of (TYLENOL) 04:05: Q6HPRN, [place] tablet 650 30 Starting Medic al mg Fri Branch 03/02/20 at 2305, Until Discontinu ed, Routine, Pain (scale 1-3) Polyethylen 2020-0 Yes [id number] 17g Take 1 Univers e Glycol 7-07 Packet by ity of 3350 17 00:00: mouth [place] gram powder 00 daily. Medica l Branch Polyethylen 2020-0 Yes [id number] 17g Take 1 Univers e Glycol 7-07 Packet by ity of 3350 17 00:00: mouth [place] gram powder 00 daily. Medica l Branch Polyethylen 2020-0 Yes [id number] 17g Take 1 Univers e Glycol 7-07 Packet by ity of 3350 17 00:00: mouth [place] gram powder 00 daily. Medica l Branch Polyethylen 2020-0 Yes [id number] 17g Take 1 Univers e Glycol 7-07 Packet by ity of 3350 17 00:00: mouth [place] gram powder 00 daily. Medica l Branch Polyethylen 2020-0 2020- No [id number] 17g Take 1 Univers e Glycol 7-07 08-05 Packet by ity o f 3350 17 00:00: 00:00 mouth [place] gram powder 00 :00 daily. Medica l Branch Polyethylen 2020-0 Yes 17g 17 g, Unive rs e Glycol 7-06 Oral, ity of 3350 18:15: DAILY, [place] (MIRALAX) 00 First dose Medi mariusz powder 17 g on Thu [place] 02/27/20 at 1315, Until Discontinu ed, Routine enoxaparin 2020-0 Yes 40mg 40 mg, Unive rs (LOVENOX) 7-06 Subcutaneo ity of injection 14:00: us, DAILY, [place] 40 mg 00 First dose Medical on [facility] 02/27/20 at 0900, Until Discontinu ed, Routine polyethylen 2020-0 Yes [id number] 17g Take 17 g Univers e glycol 17 7-06 by mouth ity of gram/dose 00:00: daily. [place] powder [facility] polyethylen 2020-0 Yes [id number] 17g Take 17 g Univers e glycol 17 7-06 by mouth ity of gram/dose 00:00: daily. [place] powder 00 [facility] polyethylen 2020-0 Yes [id number] 17g Take 17 g Univers e glycol 17 7-06 by mouth ity of gram/dose 00:00: daily. [place] powder 00 [facility] polyethylen 2020-0 Yes [id number] 17g Take 17 g Univers e glycol 17 7-06 by mouth ity of gram/dose 00:00: daily. [place] powder 00 [facility] polyethylen 2020-0 Yes [id number] 17g Take 17 g Univers e glycol 17 7-06 by mouth ity of gram/dose 00:00: daily. [place] powder 00 [facility] polyethylen 2020-0 Yes [id number] 17g Take 17 g Univers e glycol 17 7-06 by mouth ity of gram/dose 00:00: daily. [place] powder 00 [facility] polyethylen 2020-0 Yes [id number] 17g Take 17 g Univers e glycol 17 7-06 by mouth ity of gram/dose 00:00: daily. [place] powder 00 Medical Branch polyethylen 2020-0 Yes [id number] 17g Take 17 g Univers e glycol 17 - by mouth ity of gram/dose 00:00: daily. [place] powder 00 Medical [place] polyethylen 2020-0 2020- No [id number] 17g Take 17 g Univers e glycol 17 02-26 09-08 by mouth ity of gram/dose 00:00: [...] 1000mL at 125 Univ ers ringers IV 02-25 07-06 mL/hr, ity of infusion 16:00: 17:57 1,000 mL, [place] 1,000 mL 00 :14 IV Medical Infusion, Branch CONTINUOUS , Starting 02/26/20 at 1100, Until 02/27/20 at 1257, Routine acetaminoph Yes 650mg 650 mg, Un piyush en 705 Oral, ity of (TYLENOL) 15:01: Q6HPRN, [place] tablet 650 46 Starting Medic al mg 02/26/20 Branch at 1001, Until Discontinu ed, Routine, Pain (scale 1-3), Pain (scale 4-6) pantoprazol 2020-0 2020- No [id number] 40mg Take 1 Univers e 40 mg EC 6-08 05-14 tablet by ity of tablet 00:00: 04:59 mouth [place] 00 :00 daily for Medical 90 days. Withams pantoprazol 2020-0 2020- No [id number] 40mg Take 1 Univers e 40 mg EC 6-15 -14 tablet by ity of tablet 00:00: 04:59 mouth [place] 00 :00 daily for Medical 90 days. Withams pantoprazol 2020-0 2020- No [id number] 40mg Take 1 Univers e 40 mg EC 6-08 05-14 tablet by ity of tablet 00:00: 04:59 mouth [place] 00 :00 daily for Medical 90 days. Withams pantoprazol 2019-0 2020- No [id number] 40mg Take 1 Univers e 40 mg EC 6-15 -14 tablet by ity of tablet 00:00: 04:59 mouth [place] 00 :00 daily for Medical 90 days. Branch pantoprazol 2019-0 2019- No [id number] 40mg Take 1 Univers e 40 mg EC 6-15 -14 tablet by ity of tablet 00:00: 04:59 mouth [place] 00 :00 daily for Medical 90 days. Branch pantoprazol 2019-0 2020- No [id number] 40mg Take 1 Univers e 40 mg EC 6-15 -14 tablet by ity of tablet 00:00: 04:59 mouth [place] 00 :00 daily for Medical 90 days. Branch pantoprazol 2020-0 2019- No [id number] 40mg Take 1 Univers e 40 mg EC 6-15 -14 tablet by ity of tablet 00:00: 04:59 mouth [place] 00 :00 daily for Medical 90 days. Branch pantoprazol 2019-0 2019- No [id number] 40mg Take 1 Univers e 40 mg EC 6-15 -14 tablet by ity of tablet 00:00: 04:59 mouth [place] 00 :00 daily for Medical 90 days. Branch pantoprazol 2019-0 2020- No [id number] 40mg Take 1 Univers e 40 mg EC 6-15 -14 tablet by ity of tablet 00:00: 04:59 mouth [place] 00 :00 daily for Medical 90 days. Branch pantoprazol 2020-0 2020- No [id number] 40mg Take 1 Univers e 40 mg EC 6-15 -14 tablet by ity of tablet 00:00: 04:59 mouth [place] 00 :00 daily for Medical 90 days. Branch pantoprazol 2019-0 2020- No [id number] 40mg Take 1 Univers e 40 mg EC 6-15 -14 tablet by ity of tablet 00:00: 04:59 mouth [place] 00 :00 daily for Medical 90 days. Branch pantoprazol 2020-0 2020- No [id number] 40mg Take 1 Univers e 40 mg EC 6-15 -14 tablet by ity of tablet 00:00: 04:59 mouth [place] 00 :00 daily for Medical 90 days. Branch pantoprazol 2020-0 2019- No [id number] 40mg Take 1 Univers e 40 mg EC 6-15 09-08 tablet by ity of tablet 00:00: 00:00 mouth [place] 00 :00 daily for Medical 90 days. Branch docusate 2020-0 2020- No [id number] 100mg Take 1 Univers 100 mg 6-14 09-13 capsule by ity of capsule 00:00: 04:59 mouth 2 [place] 00 :00 (two) Medical times Branch daily for 90 days. docusate 2020-0 2020- No [id number] 100mg Take 1 Univers 100 mg 6-14 09-13 capsule by ity of capsule 00:00: 04:59 mouth 2 [place] 00 :00 (two) Medical times Branch daily for 90 days. docusate 2020-0 2020- No [id number] 100mg Take 1 Univers 100 mg 6-14 09-13 capsule by ity of capsule 00:00: 04:59 mouth 2 [place] 00 :00 (two) Medical times Branch daily for 90 days. docusate 2020-0 2020- No [id number] 100mg Take 1 Univers 100 mg 6-14 09-13 capsule by ity of capsule 00:00: 04:59 mouth 2 [place] 00 :00 (two) Medical times Branch daily for 90 days. docusate 2020-0 2020- No [id number] 100mg Take 1 Univers 100 mg 6-14 09-13 capsule by ity of capsule 00:00: 04:59 mouth 2 [place] 00 :00 (two) Medical times Branch daily for 90 days. docusate 2020-0 2020- No [id number] 100mg Take 1 Univers 100 mg 6-14 09-13 capsule by ity of capsule 00:00: 04:59 mouth 2 [place] 00 :00 (two) Medical times Branch daily for 90 days. docusate 2020-0 2020- No [id number] 100mg Take 1 Univers 100 mg 6-14 09-13 capsule by ity of capsule 00:00: 04:59 mouth 2 [place] 00 :00 (two) Medical times Branch daily for 90 days. docusate 2020-0 2020- No [id number] 100mg Take 1 Univers 100 mg 6-14 09-13 capsule by ity of capsule 00:00: 04:59 mouth 2 [place] 00 :00 (two) Medical times Branch daily for 90 days. docusate 2020-0 2020- No [id number] 100mg Take 1 Univers 100 mg 6-14 09-13 capsule by ity of capsule 00:00: 04:59 mouth 2 [place] 00 :00 (two) Medical times Branch daily for 90 days. docusate 2020-0 2020- No [id number] 100mg Take 1 Univers 100 mg 02-04 capsule by ity of capsule 00:00: 04:59 mouth 2 [place] 00 :00 (two) Medical times Branch daily for 90 days. docusate 2020-0 2020- No [id number] 100mg Take 1 Univers 100 mg 02-04 capsule by ity of capsule 00:00: 04:59 mouth 2 [place] 00 :00 (two) Medical times Branch daily for 90 days. docusate 2020-0 2020- No [id number] 100mg Take 1 Univers 100 mg 02-04 capsule by ity of capsule 00:00: 04:59 mouth 2 [place] 00 :00 (two) Medical times Branch daily for 90 days. docusate 2020-0 2020- No [id number] 100mg Take 1 Univers 100 mg 02-04 capsule by ity of capsule 00:00: 00:00 mouth 2 [place] 00 :00 (two) Medical times Branch daily for 90 days. pantoprazol 2020-0 Yes 40mg 40 mg, Univ ers e 01-28 Oral, ity of (PROTONIX) 14:00: DAILY, [place] EC tablet 00 First dose Medi mariusz 40 mg on [facility] 01/29/20 at 0900, Until Discontinu ed, Routine enoxaparin 2020-0 Yes 40mg 40 mg, Unive rs (LOVENOX) 01-28 Subcutaneo ity of injection 14:00: us, DAILY, [place] 40 mg 00 First dose Medical on [facility] 01/29/20 at 0900, Until Discontinu ed, Routine docusate 2020-0 Yes 100mg 100 mg, Unive rs (COLACE) 01-28 Oral, ity of capsule 100 14:00: DAILY, [place] mg 00 First dose Medical on [facility] 01/29/20 at 0900, Until Discontinu ed, Routine [...] E)) 00 First dose Medical chewable on [facility] tablet 80 01/28/20 at mg 2345, Until Discontinu ed, Routine D5W IV 2019-0 2020- No 1000mL at 50 Univers infusion 01-28 06-14 mL/hr, IV ity o f 1,000 mL 03:45: 18:41 Infusion, [place] 00 :31 CONTINUOUS Medical , Starting Branch 01/28/20 at 2245, Until 02/05/20 at 1341, Routine bisacodyL 2019-0 2020- No 10mg 10 mg, Unive rs (DULCOLAX) 01-28 Rectal, ity o f suppository 03:00: 02:52 ONCE, 1 [place] 10 mg 00 :00 dose, [facility] 01/28/20 at Branch 2200, Routine ondansetron 2019-0 Yes 4mg 4 mg, Slow Univers (ZOFRAN 01-28 IV Push, ity of (PF)) 01:32: Q6HPRN, [place] injection 4 44 Starting Medi mariusz mg 01/28/20 Withams at 2031, Until Discontinu ed, Routine, Nausea and Vomiting (N/V) traMADol 2019-0 2019- No 50mg 50 mg, Univer s (ULTRAM) 01-28 06-09 Oral, ity of tablet 50 01:32: 01:31 Q8HPRN, [place] mg 25 :25 Starting Medical 01/28/20 Branch at 2031, Until 01/30/20 at 2030, Routine, Pain (scale 4-6) acetaminoph 2019-0 Yes 650mg 650 mg, Un piyush en 07 Oral, ity of (TYLENOL) 01:32: Q6HPRN, [place] tablet 650 14 Starting Medic al mg [facility] 01/28/20 Branch at 2031, Until Discontinu ed, Routine, Pain (scale 1-3) morpHINE 2020-0 2020- No 4mg 4 mg, Slow Un piyush injection 4 01-28 06-06 IV Push, ity of mg 00:45: 23:55 ONCE, 1 [place] 00 :00 dose, [facility] 01/28/20 at Branch 1945, STAT iohexol 2020-0 2020- No 100mL 100 mL, Unive rs (OMNIPAQUE 01-28 06-07 Intravenou it y of 350 00:00: 00:00 [...] IV Push, ity of mg 06:14: Q6HPRN, [place] 00 Starting Medical 01/25/20 Branch at 0114, Until Discontinu ed, Routine, Pain (scale 7-10) proCHLORper 2020-0 Yes 10mg 10 mg, Univ ers azine 6-03 Slow IV ity of (COMPAZINE) 06:12: Push, [place] injection 17 Q6HPRN, Medical 10 mg Starting Branch Thu01/25/20 at 0112, Until Discontinu ed, Routine, Nausea and Vomiting (N/V) iohexol 2020-0 2020- No 100mL 100 mL, Unive rs (OMNIPAQUE 01-24 06- Intravenou it y of 350 02:15: 02:11 s, ONCE, 1 [place] BULK-100 00 :00 dose, Tue Medica l mL) 01/24/20 at [place] injection 2114, 100 mL Routine morpHINE 2019- No 4mg 4 mg, Slow Un piyush injection 4 01-24 IV Push, ity of mg 01:45: 00:43 ONCE, 1 [place] 00 :00 dose, Tue Medical 01/24/20 at Branch 2044, Routine ondansetron 2019- No 4mg 4 mg, Slow Univers (ZOFRAN 01-24 IV Push, ity of (PF)) 00:45: 00:58 Administer [place] injection 4 00 :00 over 15 Medic al mg Minutes, Branch ONCE, 1 dose, [facility] 01/24/20 at 1944, STAT NaCl 0.9% 2019- No 1000mL at 999 Uni vers (NS) bolus 01-24 mL/hr, ity of infusion 00:45: 01:15 1,000 mL, Javi as 1,000 mL 00 :00 IV Medical Infusion, Withams ONCE, 1 dose, [facility] 01/24/20 at 1944, JOÃO mineral oil 2019- No [id number] 30mL Take 30 mL Univers oral liquid 12-11 05-05 by mouth ity of 00:00: 04:59 daily for [place] 00 :00 14 days. [facility] Branch tamsulosin 2019-0 Yes .4mg QD Take 1 [facility] mg Cap 00:00: (0.4 mg Medi mariusz 24 hr 00 total) by Center capsule mouth daily. tamsulosin 2019-0 Yes .4mg QD Take 1 [facility] (FL[facility] 0.4 mg Cap 00:00: (0.4 mg Medi mariusz 24 hr 00 total) by Center capsule mouth daily. tamsulosin 2019-0 Yes .4mg QD Take 1 [facility] (FLOMAX[facility]10 [facility] 0.4 mg Cap 00:00: (0.4 mg Medi mariusz 24 hr 00 total) by Center capsule mouth daily. thiamine, 2021- No Alcohol 100mg QD Take 1 H arris B-1, 100 mg 04-14 05-21 abuse, in tablet by Health tablet 00:00: 00:00 remission mouth 00 :00 daily. multivitami 2017-0 2022- No Alcohol 1{tbl} QD Take 1 Lynne n (DAILY 04-14 abuse, in tablet by Health VITES) 00:00: 00:00 remission mouth tablet 00 :00 daily. 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 multivitami 2021- No Alcohol 1{tbl} QD Take 1 Lynne n (DAILY 04-14 abuse, in tablet by Health VITES) 00:00: 00:00 remission mouth tablet 00 :00 [...] Take 1 Uni vers ne 50 mcg 2-02 26- tablet by ity of tablet 00:00: 00:00 mouth [place] 00 :00 every Medical morning. Withams Immunizations Ordered Filled Immunization Date Status Comments [facility] e Immunization Name Name Influenza Virus 2021-06-04 Completed Universit y of Vaccine Quad IM, 00:00:00 [facility] dical Preserv and ABX Branch Free 2-64 YRS Influenza Virus 2021-06-04 Completed Universit y of Vaccine Quad IM, 00:00:00 [place] [facility] dical Preserv and ABX Branch Free 6 MO-64 YRS Influenza Virus 2021-06-04 Completed Universit y of Vaccine Quad IM, 00:00:00 [place] [facility] dical Preserv and ABX Branch Free 6 MO-64 YRS Influenza Virus 2021-06-04 Completed Universit y of Vaccine Quad IM, 00:00:00 [place] [facility] dical Preserv and ABX Branch Free [...] [facility] y [facility]ine [facility], [facility] Preserv and ABX Branch Free 6 MO-64 YRS Influenza Virus 2020-08-24 Completed Universit y of Vaccine Quad .5 mL 00:00:00 [facility] IM 6+ MO Branch Influenza Virus 2020-08-24 Completed Universit y of Vaccine Quad .5 mL 00:00:00 [facility] IM 6+ MO Branch Influenza Virus 2020-08-24 Completed Universit y of Vaccine Quad .5 mL 00:00:00 [facility] IM 6+ MO Branch Influenza Virus 2020-08-24 Completed Universit y of Vaccine Quad .5 mL 00:00:00 [facility] 6+ MO Branch Influenza Virus 2020-08-24 Completed Universit y of Vaccine Quad .5 mL 00:00:00 [facility] 6+ MO Branch Influenza Virus 2020-08-24 Completed Universit y of Vaccine Quad .5 mL 00:00:00 [facility] 6+ MO Branch Influenza Virus 2020-08-24 Completed Universit y of Vaccine Quad .5 mL 00:00:00 [facility] 6+ MO Branch Influenza Virus 2020-08-24 Completed Universit y of Vaccine Quad .5 mL 00:00:00 [facility] 6+ MO Branch Influenza Virus 2020-08-24 Completed Universit y of Vaccine Quad .5 mL 00:00:00 [facility] 6+ MO Branch Influenza Virus 2020-08-24 Completed Universit y of Vaccine Quad .5 mL 00:00:00 [facility] 6+ MO Branch Influenza Virus 2020-08-24 Completed Universit y of Vaccine Quad .5 mL 00:00:00 [facility] IM 6+ MO Branch Influenza Virus 2020-08-24 Completed Universit y of Vaccine Quad .5 mL 00:00:00 [facility] IM 6+ MO Branch Influenza Virus 2020-08-24 Completed Universit y of Vaccine Quad .5 mL 00:00:00 [facility] 6+ MO Branch Influenza Virus 2020-08-24 Completed Universit y of Vaccine Quad .5 mL 00:00:00 [facility] IM 6+ MO Branch Influenza Virus 2020-08-24 Completed Universit y of Vaccine Quad .5 mL 00:00:00 [facility] 6+ MO Branch Influenza Virus 2020-08-24 Completed [...] y of Vaccine Quad .5 mL 00:00:00 [place] [facility] IM 6+ MO Branch Influenza Virus 2020-08-24 Completed Universit y of Vaccine Quad .5 mL 00:00:00 [place] [facility] IM 6+ MO Branch Influenza Virus 2020-08-24 Completed Universit y of Vaccine Quad .5 mL 00:00:00 [place] [facility] IM 6+ MO Branch Influenza Virus 2020-08-24 Completed Universit y of Vaccine Quad .5 mL 00:00:00 [place] [facility] IM 6+ MO Branch Influenza Virus 2020-08-24 Completed Universit y of Vaccine Quad .5 mL 00:00:00 [place] [facility] IM 6+ MO Branch PPD 2017-04-14 Completed [facility] 00:00:00 PPD 2017-04-14 Completed [facility] 00:00:00 Influenza Virus 2016-05-16 Completed Universit y of Vaccine Quad IM 3+ 00:00:00 [facility] Influenza Virus 2016-05-16 Completed Universit y of Vaccine Quad IM 3+ 00:00:00 [facility] Influenza Virus 2016-05-16 Completed Universit y of Vaccine Quad IM 3+ 00:00:00 [facility] Influenza Virus 2016-05-16 Completed Universit y of Vaccine Quad IM 3+ 00:00:00 [facility] Influenza Virus 2016-05-16 Completed Universit y of Vaccine Quad IM 3+ 00:00:00 [facility] Influenza Virus 2016-05-16 Completed Universit y of Vaccine Quad IM 3+ 00:00:00 [facility] Influenza Virus 2016-05-16 Completed Universit y of Vaccine Quad IM 3+ 00:00:00 [facility] Influenza Virus 2016-05-16 Completed Universit y of Vaccine Quad IM 3+ 00:00:00 [facility] Influenza Virus 2016-05-16 Completed Universit y of Vaccine Quad IM 3+ 00:00:00 [facility] Influenza Virus 2016-05-16 Completed Universit y of Vaccine Quad IM 3+ 00:00:00 [facility] Influenza Virus 2016-05-16 Completed Universit y of Vaccine Quad IM 3+ 00:00:00 [facility] Influenza Virus 2016-05-16 Completed Universit y of Vaccine Quad IM 3+ 00:00:00 [facility] Influenza Virus 2016-05-16 Completed Universit y of Vaccine Quad IM 3+ 00:00:00 [facility] Influenza Virus 2016-05-16 Completed Universit y of Vaccine Quad IM 3+ 00:00:00 [facility] Influenza Virus 2016-05-16 Completed Universit y of Vaccine Quad IM 3+ 00:00:00 [facility] Influenza Virus 2016-05-16 Completed Universit y of Vaccine Quad IM 3+ 00:00:00 [facility] Influenza Virus 2016-05-16 Completed Universit y of Vaccine Quad IM 3+ 00:00:00 [facility] Influenza Virus 2016-05-16 Completed Universit y of Vaccine Quad IM 3+ 00:00:00 [facility] Influenza Virus 2016-05-16 Completed Universit y of Vaccine Quad IM 3+ 00:00:00 [facility] Influenza Virus 2016-05-16 Completed Universit y of Vaccine Quad IM 3+ 00:00:00 [facility] Influenza Virus 2016-05-16 Completed Universit y of Vaccine Quad IM 3+ 00:00:00 [facility] Influenza Virus 2016-05-16 Completed Universit y of Vaccine Quad IM 3+ 00:00:00 [facility] Influenza Virus 2016-05-16 Completed Universit y of Vaccine Quad IM 3+ 00:00:00 [facility] Influenza Virus 2016-05-16 Completed Universit y of Vaccine Quad IM 3+ 00:00:00 [facility] Influenza Virus 2016-05-16 Completed Universit y of Vaccine Quad IM 3+ 00:00:00 [facility] Influenza Virus 2016-05-16 Completed Universit y of Vaccine Quad IM 3+ 00:00:00 [facility] Influenza Virus 2016-05-16 Completed Universit y of Vaccine Quad IM 3+ 00:00:00 [facility] Influenza Virus 2016-05-16 Completed Universit y of Vaccine Quad IM 3+ 00:00:00 [facility] Influenza Virus 2016-05-16 Completed Universit y of Vaccine Quad IM 3+ 00:00:00 [facility] Influenza Virus 2016-05-16 Completed Universit y of Vaccine Quad IM 3+ 00:00:00 [facility] Influenza Virus 2016-05-16 Completed Universit y of Vaccine Quad IM 3+ 00:00:00 [facility] Influenza Virus 2016-05-16 Completed Universit y of Vaccine Quad IM 3+ 00:00:00 [facility] Influenza Virus 2016-05-16 Completed Universit y of Vaccine Quad IM 3+ 00:00:00 [facility] Influenza Virus 2016-05-16 Completed Universit y of Vaccine Quad IM 3+ 00:00:00 [facility] Influenza Virus 2016-05-16 Completed Universit y of Vaccine Quad IM 3+ 00:00:00 [facility] Influenza Virus 2016-05-16 Completed Universit y of Vaccine Quad IM 3+ 00:00:00 [facility] Influenza Virus 2016-05-16 Completed Universit y of Vaccine Quad IM 3+ 00:00:00 [facility] Influenza Virus 2016-05-16 Completed Universit y of Vaccine Quad IM 3+ 00:00:00 [facility] Influenza Virus 2016-05-16 Completed Universit y of Vaccine Quad IM 3+ 00:00:00 [facility] Influenza Virus 2016-05-16 Completed Universit y of Vaccine Quad IM 3+ 00:00:00 [facility] Influenza Virus 2016-05-16 Completed Universit y of Vaccine Quad IM 3+ 00:00:00 [facility] Influenza Virus 2016-05-16 Completed Universit y of Vaccine Quad IM 3+ 00:00:00 [facility] Influenza Virus 2016-05-16 Completed Universit y of Vaccine Quad IM 3+ 00:00:00 [facility] Influenza Virus 2016-05-16 Completed Universit y of Vaccine Quad IM 3+ 00:00:00 [facility] Influenza Virus 2016-05-16 Completed Universit y of Vaccine Quad IM 3+ 00:00:00 [facility] Influenza Virus 2016-05-16 Completed Universit y of Vaccine Quad IM 3+ 00:00:00 [facility] Influenza Virus 2016-05-16 Completed Universit y of Vaccine Quad IM 3+ 00:00:00 [facility] Influenza Virus 2016-05-16 Completed Universit y of Vaccine Quad IM 3+ 00:00:00 [facility] Influenza Virus 2016-05-16 Completed Universit y of Vaccine Quad IM 3+ 00:00:00 [facility] Influenza Virus 2016-05-16 Completed Universit y of Vaccine Quad IM 3+ 00:00:00 [facility] Influenza Virus 2016-05-16 Completed Universit y of Vaccine Quad IM 3+ 00:00:00 [facility] Influenza Virus 2016-05-16 Completed Universit y of Vaccine Quad IM 3+ 00:00:00 [facility] Influenza Virus 2016-05-16 Completed Universit y of Vaccine Quad IM 3+ 00:00:00 [facility] Influenza Virus 2016-05-16 Completed Universit y of Vaccine Quad IM 3+ 00:00:00 [facility] Influenza Virus 2016-05-16 Completed Universit y of Vaccine Quad IM 3+ 00:00:00 [facility] Influenza Virus 2016-05-16 Completed Universit y of Vaccine Quad IM 3+ 00:00:00 [facility] Influenza Virus 2016-05-16 Completed Universit y of Vaccine Quad IM 3+ 00:00:00 [facility] Influenza Virus 2016-05-16 Completed Universit y of Vaccine Quad IM 3+ 00:00:00 [facility] Influenza Virus 2016-05-16 Completed Universit y of Vaccine Quad IM 3+ 00:00:00 [facility] Influenza Virus 2016-05-16 Completed Universit y of Vaccine Quad IM 3+ 00:00:00 [facility] Influenza Virus 2016-05-16 Completed Universit y of Vaccine Quad IM 3+ 00:00:00 [facility] Influenza Virus 2016-05-16 Completed Universit y of Vaccine Quad IM 3+ 00:00:00 [facility] Influenza Virus 2016-05-16 Completed Universit y of Vaccine Quad IM 3+ 00:00:00 [facility] Influenza Virus 2016-05-16 Completed Universit y of Vaccine Quad IM 3+ 00:00:00 [facility] Influenza Virus 2016-05-16 Completed Universit y of Vaccine Quad IM 3+ 00:00:00 [facility] Influenza Virus 2016-05-16 Completed Universit y of Vaccine Quad IM 3+ 00:00:00 [facility] Influenza Virus 2016-05-16 Completed Universit y of Vaccine Quad IM 3+ 00:00:00 [facility] Influenza Virus 2016-05-16 Completed Universit y of Vaccine Quad IM 3+ 00:00:00 [facility] Influenza Virus 2016-05-16 Completed Universit y of Vaccine Quad IM 3+ 00:00:00 [facility] Influenza Virus 2016-05-16 Completed Universit y of Vaccine Quad IM 3+ 00:00:00 [facility] Influenza Virus 2016-05-16 Completed Universit y of Vaccine Quad IM 3+ 00:00:00 [facility] Influenza Virus 2016-05-16 Completed Universit y of Vaccine Quad IM 3+ 00:00:00 [facility] Influenza Virus 2016-05-16 Completed Universit y of Vaccine Quad IM 3+ 00:00:00 [facility] Vital Signs Vital Name Observation Time Observation Value Comments Source Systolic blood 2022-04-10 115 mm[Hg] University of pressure 05:05:13 [facility] Diastolic blood 2022-04-10 93 mm[Hg] [facility] o f pressure 05:05:13 [facility] Heart rate 2022-04-10 87 /min [facility] 05:05:13 [facility] Respiratory rate 2022-04-10 15 /min [facility] 05:05:13 [facility] Oxygen saturation 2022-04-10 100 /min [facility] in Arterial blood 05:05:13 [facility] by Pulse oximetry [place] Body temperature 2022-04-10 36.61 Tasia University of 01:35:00 [facility] Body height 2022-04-10 185.4 cm University of 01:35:00 [facility] Body weight 2022-04-10 68.04 kg University of 01:35:00 [facility] BMI 2022-04-10 19.79 kg/m2 University 01:35:00 [facility] Systolic blood 2022-04-08 86 mm[Hg] University of pressure 13:00:00 [facility] Diastolic blood 2022-04-08 75 mm[Hg] University o f pressure 13:00:00 [facility] Heart rate 2022-04-08 61 /min University of 13:00:00 [facility] Body temperature 2022-04-08 35.67 Tasia University of 13:00:00 [facility] Respiratory rate 2022-04-08 17 /min University of 13:00:00 [facility] Oxygen saturation 2022-04-08 95 /min [facility] of in Arterial blood 13:00:00 [facility] by Pulse oximetry Branch Body weight 2022-04-06 72.984 kg University 08:20:00 [facility] BMI 2022-04-06 21.23 kg/m2 University 08:20:00 [facility] Body height 2022-04-02 185.4 cm University 16:37:00 [facility] HEIGHT 2022-03-06 185.4 cm 12:05:00 WEIGHT 2022-03-06 65.772 kg 12:05:00 HEIGHT 2022-03-06 185.4 cm 12:05:00 WEIGHT 2022-03-06 65.772 kg 12:05:00 HEIGHT 2022-03-06 185.4 cm 12:05:00 WEIGHT 2022-03-06 65.772 kg 12:05:00 Systolic blood 2021-09-14 106 mm[Hg] University of pressure 03:17:00 [facility] Diastolic blood 2021-09-14 55 mm[Hg] University o f pressure 03:17:00 [facility] Heart rate 2021-09-14 86 /min [facility] 03:17:00 [facility] Body temperature 2021-09-14 36.89 Tasia [facility] 03:17:00 [facility] Respiratory rate 2021-09-14 18 /min University of 03:17:00 [facility] Oxygen saturation 2021-09-14 98 /min University of in Arterial blood 03:17:00 [place] [facility] by Pulse oximetry Branch Systolic blood 2021-09-12 90 mm[Hg] University of pressure 22:20:00 [facility] Diastolic blood 2021-09-12 66 mm[Hg] University o f pressure 22:20:00 [facility] Heart rate 2021-09-12 97 /min University 22:20:00 [facility] Body temperature 2021-09-12 36.61 Tasia University of 22:20:00 [facility] Respiratory rate 2021-09-12 16 /min University of 22:20:00 [facility] Oxygen saturation 2021-09-12 98 /min University of in Arterial blood 22:20:00 [place] [facility] by Pulse oximetry Branch Body weight 2021-09-12 68.04 kg University of 20:25:00 [facility] BMI 2021-09-12 19.79 kg/m2 University of 20:25:00 [facility] Systolic blood 2021-09-12 103 mm[Hg] University of pressure 13:29:00 [facility] Branch Diastolic blood 2021-09-12 67 mm[Hg] University o f pressure 13:29:00 [facility] Heart rate 2021-09-12 91 /min University of 13:29:00 [facility] Body temperature 2021-09-12 36.72 Tasia University of 13:29:00 [facility] Respiratory rate 2021-09-12 33 /min University of 13:29:00 [facility] Oxygen saturation 2021-09-12 98 /min University of in Arterial blood 13:29:00 [facility] by Pulse oximetry Branch Body weight 2021-09-12 68.04 kg University of 12:17:00 [facility] BMI 2021-09-12 19.79 kg/m2 University of 12:17:00 [facility] Systolic blood 2021-09-09 100 mm[Hg] University of pressure 04:59:00 [facility] Diastolic blood 2021-09-09 60 mm[Hg] University o f pressure 04:59:00 [facility] Heart rate 2021-09-09 85 /min University of 04:59:00 [facility] Body temperature 2021-09-09 36.5 Tasia University of 04:59:00 [facility] Respiratory rate 2021-09-09 16 /min University of 04:59:00 [facility] Body height 2021-09-09 185.4 cm University of 04:59:00 [facility] Body weight 2021-09-09 68.04 kg University of 04:59:00 [facility] BMI 2021-09-09 19.79 kg/m2 University of 04:59:00 [facility] Oxygen saturation 2021-09-09 98 /min University of in Arterial blood 04:59:00 [facility] by Pulse oximetry Branch Systolic blood 2021-09-08 129 mm[Hg] University of pressure 05:42:00 [place] [facility] Diastolic blood 2021-09-08 69 mm[Hg] University o f pressure 05:42:00 [facility] Branch Heart rate 2021-09-08 85 /min University of 05:42:00 [facility] Branch Respiratory rate 2021-09-08 17 /min University of 05:42:00 [facility] Oxygen saturation 2021-09-08 98 /min University of in Arterial blood 05:42:00 [facility] by Pulse oximetry Branch Body temperature 2021-09-08 37.44 Tasia University of 01:22:00 [facility] Body weight 2021-09-08 68 kg University of 01:22:00 [facility] BMI 2021-09-08 19.78 kg/m2 University of 01:22:00 [facility] Systolic blood 2021-09-06 123 mm[Hg] University of pressure 21:33:00 [facility] Diastolic blood 2021-09-06 65 mm[Hg] University o f pressure 21:33:00 [facility] Heart rate 2021-09-06 91 /min University of 21:33:00 [facility] Body temperature 2021-09-06 36.39 Tasia University of 21:33:00 [facility] Respiratory rate 2021-09-06 18 /min University of 21:33:00 [facility] Body weight 2021-09-06 68.04 kg University of 21:33:00 [facility] BMI 2021-09-06 19.79 kg/m2 University of 21:33:00 [facility] Oxygen saturation 2021-09-06 100 /min University of in Arterial blood 21:33:00 [facility] by Pulse oximetry Branch Systolic blood 2021-09-05 99 mm[Hg] University of pressure 17:16:00 [facility] Branch Diastolic blood 2021-09-05 62 mm[Hg] University o f pressure 17:16:00 [facility] Heart rate 2021-09-05 78 /min University of 17:16:00 [facility] Body temperature 2021-09-05 36.39 Tasia University of 17:16:00 [facility] Respiratory rate 2021-09-05 17 /min University of 17:16:00 [facility] Branch Oxygen saturation 2021-09-05 95 /min University of in Arterial blood 17:16:00 [place] [facility] by Pulse oximetry Branch Body height 2021-08-31 185.4 cm University of 07:29:00 [facility] Body weight 2021-08-31 68.04 kg University of 07:29:00 [facility] BMI 2021-08-31 19.79 kg/m2 University of 07:29:00 [facility] Systolic blood 2021-09-03 111 mm[Hg] University of pressure 15:59:00 [facility] Branch Diastolic blood 2021-09-03 65 mm[Hg] University o f pressure 15:59:00 [facility] Heart rate 2021-09-03 75 /min University of 15:59:00 [facility] Body temperature 2021-09-03 35.72 Tasia University of 15:59:00 [facility] Respiratory rate 2021-09-03 18 /min University of 15:59:00 [facility] Oxygen saturation 2021-09-03 100 /min University of in Arterial blood 15:59:00 [place] [facility] by Pulse oximetry Branch Body height 2021-08-31 185.4 cm University of 07:29:00 [facility] Body weight 2021-08-31 68.04 kg University of 07:29:00 [facility] BMI 2021-08-31 19.79 kg/m2 University of 07:29:00 [facility] Systolic blood 2021-08-29 111 mm[Hg] University of pressure 23:12:00 [facility] Diastolic blood 2021-08-29 73 mm[Hg] University o f pressure 23:12:00 [facility] Heart rate 2021-08-29 95 /min University of 23:12:00 [facility] Body temperature 2021-08-29 37 Tasia University of 23:12:00 [facility] Respiratory rate 2021-08-29 18 /min University of 23:12:00 [facility] Body weight 2021-08-29 68.04 kg University of 23:12:00 [facility] BMI 2021-08-29 19.79 kg/m2 University of 23:12:00 [facility] Oxygen saturation 2021-08-29 99 /min University of in Arterial blood 23:12:00 [place] [facility] by Pulse oximetry Branch Systolic blood 2021-08-05 92 mm[Hg] University of pressure 10:56:00 [facility] Diastolic blood 2021-08-05 75 mm[Hg] University o f pressure 10:56:00 [facility] Heart rate 2021-08-05 67 /min University of 10:56:00 [facility] Body temperature 2021-08-05 36.22 Tasia University of 10:56:00 [facility] Oxygen saturation 2021-08-05 93 /min University of in Arterial blood 10:56:00 [facility] mariusz by Pulse oximetry Branch Respiratory rate 2021-08-05 16 /min University of 06:24:00 [facility] Body height 2021-07-30 185.4 cm University of 09:49:00 [facility] Body weight 2021-07-30 65.772 kg University of 09:49:00 [facility] BMI 2021-07-30 19.13 kg/m2 University of 09:49:00 [facility] Systolic blood 2021-07-26 107 mm[Hg] University of pressure 17:32:00 [facility] Diastolic blood 2021-07-26 69 mm[Hg] University o f pressure 17:32:00 [facility] Heart rate 2021-07-26 70 /min University of 17:32:00 [facility] Body temperature 2021-07-26 36.39 Tasia University of 17:32:00 [facility] Respiratory rate 2021-07-26 16 /min University of 17:32:00 [facility] Oxygen saturation 2021-07-26 96 /min University of in Arterial blood 17:32:00 [facility] by Pulse oximetry Branch Body height 2021-07-23 185.4 cm University of 08:40:00 [facility] Body weight 2021-07-23 84.5 kg University of 08:40:00 [facility] BMI 2021-07-23 24.58 kg/m2 University of 08:40:00 [facility] Systolic blood 2021-06-04 95 mm[Hg] University of pressure 16:20:00 [facility] Branch Diastolic blood 2021-06-04 60 mm[Hg] University o f pressure 16:20:00 [facility] Heart rate 2021-06-04 61 /min [facility] 16:20:00 [facility] Body temperature 2021-06-04 36.17 Tasia University of 16:20:00 [facility] Respiratory rate 2021-06-04 18 /min University of 16:20:00 [facility] Oxygen saturation 2021-06-04 100 /min University of in Arterial blood 16:20:00 [facility] mariusz by Pulse oximetry Branch Body weight 2021-06-01 65.772 kg University of 19:00:00 [facility] BMI 2021-06-01 19.13 kg/m2 University of 19:00:00 [facility] Body height 2021-05-31 185.4 cm University of 22:12:00 [facility] Systolic blood 2021-05-21 101 mm[Hg] University of pressure 20:21:00 [facility] Diastolic blood 2021-05-21 68 mm[Hg] University o f pressure 20:21:00 [facility] Heart rate 2021-05-21 74 /min [facility] of 20:21:00 [facility] Body temperature 2021-05-21 36.56 Tasia [facility] of 20:21:00 [facility] Respiratory rate 2021-05-21 18 /min [facility] of 20:21:00 [facility] Oxygen saturation 2021-05-21 99 /min University of in Arterial blood 20:21:00 [facility] by Pulse oximetry Branch Body height 2021-05-21 185.4 cm University of 00:15:00 [facility] Body weight 2021-05-21 65.772 kg University of 00:15:00 [facility] BMI 2021-05-21 19.13 kg/m2 University of 00:15:00 [facility] Systolic blood 2021-05-09 101 mm[Hg] University of pressure 16:32:00 [facility] Diastolic blood 2021-05-09 70 mm[Hg] University o f pressure 16:32:00 [facility] Heart rate 2021-05-09 69 /min [facility] of 16:32:00 [facility] Body temperature 2021-05-09 36.72 Tasia [facility] of 16:32:00 [facility] Respiratory rate 2021-05-09 16 /min [facility] of 16:32:00 [facility] Oxygen saturation 2021-05-09 99 /min [facility] of in Arterial blood 16:32:00 [facility] by Pulse oximetry Branch Body height 2021-05-08 185.4 cm University of 05:48:00 [facility] Body weight 2021-05-08 80.196 kg University of 05:48:00 [facility] BMI 2021-05-08 23.33 kg/m2 University of 05:48:00 [facility] Heart rate 2020-09-27 89 /min University of 04:25:00 [facility] Respiratory rate 2020-09-27 20 /min [facility] of 04:25:00 [facility] Oxygen saturation 2020-09-27 99 /min University of in Arterial blood 04:25:00 [facility] by Pulse oximetry Branch Systolic blood 2020-09-27 103 mm[Hg] University of pressure 04:02:00 [facility] Diastolic blood 2020-09-27 78 mm[Hg] University o f pressure 04:02:00 [facility] Body temperature 2020-09-27 36.72 Tasia [facility] of 04:00:00 [facility] Body weight 2020-09-26 79.379 kg University of 22:35:00 [facility] BMI 2020-09-26 23.09 kg/m2 University of 22:35:00 [facility] Systolic blood 2020-08-24 105 mm[Hg] University of pressure 17:24:00 [facility] Diastolic blood 2020-08-24 64 mm[Hg] University o f pressure 17:24:00 [facility] Heart rate 2020-08-24 83 /min [facility] of 17:24:00 [facility] Body temperature 2020-08-24 36.56 Tasia [facility] of 17:24:00 [facility] Respiratory rate 2020-08-24 16 /min [facility] of 17:24:00 [facility] Oxygen saturation 2020-08-24 98 /min [facility] of in Arterial blood 17:24:00 [facility] by Pulse oximetry [place] Body height 2020-08-23 185.4 cm University of 03:19:00 [facility] Body weight 2020-08-23 79.379 kg University of 03:19:00 [facility] BMI 2020-08-23 23.09 kg/m2 University of 03:19:00 [facility] Systolic blood 2020-07-10 126 mm[Hg] University of pressure 01:32:00 [facility] Diastolic blood 2020-07-10 67 mm[Hg] University o f pressure 01:32:00 [facility] Heart rate 2020-07-10 92 /min University of :32:00 [facility] Body temperature 2020-07-10 37.17 Tasia [facility] of 01:32:00 [facility] Respiratory rate 2020-07-10 16 /min [facility] of 01:32:00 [facility] Oxygen saturation 2020-07-10 100 /min University of in Arterial blood 01:32:00 [facility] by Pulse oximetry Branch Body height 2020-07-09 154.9 cm University of :23:00 [facility] Body weight 2020-07-09 68.04 kg University of ::00 [facility] BMI 2020-07-09 28.34 kg/m2 University of 22:23:00 [facility] Systolic blood 2020-06-05 106 mm[Hg] University of pressure 15:00:00 [facility] Diastolic blood 2020-06-05 72 mm[Hg] University o f pressure 15:00:00 [facility] Heart rate 2020-06-05 84 /min University of 15:00:00 [facility] Respiratory rate 2020-06-05 18 /min [facility] of 15:00:00 [facility] Oxygen saturation 2020-06-05 100 /min University of in Arterial blood 15:00:00 [facility] by Pulse oximetry Branch Body temperature 2020-06-05 36.61 Tasia [facility] 14:54:52 [facility] Body weight 2020-06-05 65.772 kg University of 11:48:00 [facility] BMI 2020-06-05 19.13 kg/m2 University of 11:48:00 [facility] Systolic blood 2020-06-04 130 mm[Hg] University of pressure 18:30:00 [facility] Diastolic blood 2020-06-04 84 mm[Hg] University o f pressure 18:30:00 [facility] Heart rate 2020-06-04 72 /min [facility] of 18:30:00 [facility] Body temperature 2020-06-04 36.72 Tasia [facility] of 18:30:00 [facility] Respiratory rate 2020-06-04 16 /min [facility] of 18:30:00 [facility] Oxygen saturation 2020-06-04 98 /min [facility] of in Arterial blood 18:30:00 [facility] by Pulse oximetry Branch Systolic blood 2020-05-31 90 mm[Hg] University of pressure 19:59:00 [facility] Diastolic blood 2020-05-31 59 mm[Hg] University o f pressure 19:59:00 [facility] Heart rate 2020-05-31 88 /min [facility] of 19:59:00 [facility] Body temperature 2020-05-31 36.78 Tasia [facility] of 19:59:00 [facility] Respiratory rate 2020-05-31 16 /min [facility] of 19:59:00 [facility] Oxygen saturation 2020-05-31 98 /min [facility] of in Arterial blood 19:59:00 [facility] by Pulse oximetry Branch Body height 2020-05-30 185.4 cm University of 18:29:00 [facility] Body weight 2020-05-30 69.5 kg weighed in bed University of 18:29:00 [facility] BMI 2020-05-30 20.21 kg/m2 University of 18:29:00 [facility] Systolic blood 2020-05-22 100 mm[Hg] University of pressure 04:38:00 [facility] Diastolic blood 2020-05-22 71 mm[Hg] University o f pressure 04:38:00 [facility] Heart rate 2020-05-22 90 /min University of 04:38:00 [facility] Respiratory rate 2020-05-22 18 /min [facility] of 04:38:00 [facility] Oxygen saturation 2020-05-22 97 /min Holiday of in Arterial blood 04:38:00 [facility] by Pulse oximetry Branch Body temperature 2020-05-22 36.83 Tasia University of 02:02:11 [facility] Body height 2020-05-22 185.4 cm University of 01:59:00 [facility] Body weight 2020-05-22 65.772 kg University of 01:59:00 [facility] BMI 2020-05-22 19.13 kg/m2 University of 01:59:00 [facility] Systolic blood 2020-05-20 95 mm[Hg] University of pressure 18:33:34 [facility] Diastolic blood 2020-05-20 62 mm[Hg] University o f pressure 18:33:34 [facility] Heart rate 2020-05-20 86 /min University of 18:33:34 [facility] Respiratory rate 2020-05-20 20 /min [facility] of 18:33:34 [facility] Oxygen saturation 2020-05-20 98 /min [facility] of in Arterial blood 18:33:34 [facility] by Pulse oximetry Branch Body temperature 2020-05-20 37 Tasia University of 12:02:00 [facility] Body weight 2020-05-20 65.8 kg University of 12:02:00 [facility] BMI 2020-05-20 19.14 kg/m2 University of 12:02:00 [facility] Systolic blood 2020-05-20 101 mm[Hg] University of pressure 10:58:00 [facility] Diastolic blood 2020-05-20 56 mm[Hg] University o f pressure 10:58:00 [facility] Heart rate 2020-05-20 79 /min University of 10:58:00 [facility] Body temperature 2020-05-20 37 Tasia [facility] of 10:58:00 [facility] Respiratory rate 2020-05-20 16 /min [facility] of 10:58:00 [facility] Oxygen saturation 2020-05-20 99 /min [facility] in Arterial blood 10:58:00 [facility] Pulse oxim[facility] Body height 2020-05-20 185.4 cm University of 02:36:00 [facility] Body weight 2020-05-20 65.772 kg University of 02:36:00 [facility] BMI 2020-05-20 19.13 kg/m2 University of 02:36:00 [facility] Systolic blood 2020-05-12 93 mm[Hg] University of pressure 17:02:00 [facility] Diastolic blood 2020-05-12 61 mm[Hg] University o f pressure 17:02:00 [facility] Body temperature 2020-05-12 37.06 Tasia [facility] 17:02:00 [facility] Heart rate 2020-05-12 74 /min [facility] of 09:00:00 [facility] Respiratory rate 2020-05-12 18 /min [facility] 09:00:00 [facility] Oxygen saturation 2020-05-12 95 /min [facility] in Arterial blood 09:00:00 [facility] Pulse oxim[facility] Body height 2020-05-05 185.4 cm [facility] of 09:05:00 [facility] Body weight 2020-05-05 65.772 kg University of 09:05:00 [facility] BMI 2020-05-05 19.13 kg/m2 University of 09:05:00 [facility] Systolic blood 2020-05-03 107 mm[Hg] University of pressure 04:30:00 [facility] Diastolic blood 2020-05-03 62 mm[Hg] University o f pressure 04:30:00 [facility] Heart rate 2020-05-03 105 /min [facility] of 04:30:00 [facility] Body temperature 2020-05-03 37.22 Tasia [facility] 04:30:00 [facility] Respiratory rate 2020-05-03 14 /min [facility] of 04:30:00 [facility] Body height 2020-05-03 185.4 cm University of 04:30:00 [facility] Body weight 2020-05-03 65.772 kg University of 04:30:00 [facility] BMI 2020-05-03 19.13 kg/m2 University of 04:30:00 [facility] Systolic blood 2020-05-02 105 mm[Hg] [facility] of pressure 12:46:00 [facility] Diastolic blood 2020-05-02 57 mm[Hg] University o f pressure 12:46:00 [facility] Heart rate 2020-05-02 79 /min [facility] of 12:46:00 [facility] Body temperature 2020-05-02 36.28 Tasia [facility] 12:46:00 [facility] Respiratory rate 2020-05-02 16 /min [facility] of 12:46:00 [facility] Oxygen saturation 2020-05-02 98 /min [facility] of in Arterial blood 12:46:00 [facility] mariusz by Pulse oximetry Branch Body height 2020-04-16 185.4 cm University of 20:11:00 [facility] Body weight 2020-04-16 79.379 kg University of 20:11:00 [facility] BMI 2020-04-16 23.09 kg/m2 University of 20:11:00 [facility] Respiratory rate 2020-04-06 12 /min [facility] of 16:20:00 [facility] Systolic blood 2020-03-28 125 mm[Hg] [facility] of pressure 16:00:00 [facility] Diastolic blood 2020-03-28 87 mm[Hg] University o f pressure 16:00:00 [facility] Heart rate 2020-03-28 74 /min [facility] of 16:00:00 [facility] Body temperature 2020-03-28 36.44 Tasia [facility] 16:00:00 [facility] Respiratory rate 2020-03-28 18 /min [facility] 16:00:00 [facility] Oxygen saturation 2020-03-28 100 /min [facility] in Arterial blood 16:00:00 [place] [facility] Pulse oxim[facility] Body height 2020-03-26 185.4 cm [facility] 03:49:00 [facility] Body weight 2020-03-26 74.844 kg University of 03:49:00 [facility] BMI 2020-03-26 21.77 kg/m2 [facility] of 03:49:00 [facility] Systolic blood 2020-03-05 107 mm[Hg] [facility] of pressure 16:00:00 [facility] Diastolic blood 2020-03-05 67 mm[Hg] University o f pressure 16:00:00 [facility] Heart rate 2020-03-05 56 /min [facility] of 16:00:00 [facility] Body temperature 2020-03-05 36.5 Tasia [facility] 16:00:00 [facility] Respiratory rate 2020-03-05 18 /min [facility] of 16:00:00 [facility] Oxygen saturation 2020-03-05 100 /min [facility] of in Arterial blood 16:00:00 [facility] mariusz by Pulse oximetry Branch Body height 2020-03-03 185.4 cm [facility] of 05:49:00 [facility] Body weight 2020-03-03 71.668 kg University of 05:49:00 [facility] BMI 2020-03-03 20.85 kg/m2 University of 05:49:00 [facility] Systolic blood 2020-02-27 100 mm[Hg] [facility] of pressure 21:12:00 [facility] Diastolic blood 2020-02-27 74 mm[Hg] University o f pressure 21:12:00 [facility] Heart rate 2020-02-27 90 /min [facility] of 21:12:00 [facility] Body temperature 2020-02-27 35.78 Tasia [facility] 21:12:00 [facility] Respiratory rate 2020-02-27 19 /min [facility] of 21:12:00 [facility] Oxygen saturation 2020-02-27 99 /min [facility] of in Arterial blood 21:12:00 [facility] mariusz by Pulse oximetry Branch Body weight 2020-02-26 71.215 kg University of 23:05:00 [facility] BMI 2020-02-26 20.71 kg/m2 University of 23:05:00 [facility] Systolic blood 2020-02-26 132 mm[Hg] [facility] of pressure 07:43:00 [facility] Diastolic blood 2020-02-26 71 mm[Hg] [facility] o f pressure 07:43:00 [facility] Heart rate 2020-02-26 82 /min [facility] of 07:43:00 [facility] Respiratory rate 2020-02-26 18 /min [facility] 07:43:00 [facility] Oxygen saturation 2020-02-26 100 /min [facility] in Arterial blood 07:43:00 [place] [facility] Pulse o[facility] [place] Body temperature 2020-02-26 36.94 Tasia [facility] of 04:57:00 [facility] Body height 2020-02-26 185.4 cm University of 02:30:00 [facility] Body weight 2020-02-26 68.04 kg University of 02:30:00 [facility] BMI 2020-02-26 19.79 kg/m2 University of 02:30:00 [facility] Systolic blood 2020-02-05 100 mm[Hg] [facility] of pressure 16:00:00 [facility] Diastolic blood 2020-02-05 61 mm[Hg] University o f pressure 16:00:00 [facility] Heart rate 2020-02-05 60 /min [facility] 16:00:00 [facility] Body temperature 2020-02-05 36.67 Tasia [facility] 16:00:00 [facility] Respiratory rate 2020-02-05 17 /min [facility] of 16:00:00 [facility] Oxygen saturation 2020-02-05 98 /min [facility] of in Arterial blood 16:00:00 [facility] by Pulse oximetry [place] Body height 2020-01-28 185.4 cm University of 23:13:00 [facility] Body weight 2020-01-28 68.04 kg University of 23:13:00 [facility] BMI 2020-01-28 19.79 kg/m2 [facility] of 23:13:00 [facility] Systolic blood 2020-02-05 100 mm[Hg] [facility] of pressure 16:00:00 [facility] Diastolic blood 2020-02-05 61 mm[Hg] [facility] o f pressure 16:00:00 [facility] Heart rate 2020-02-05 60 /min [facility] 16:00:00 [facility] Body temperature 2020-02-05 36.67 Tasia [facility] 16:00:00 [facility] Respiratory rate 2020-02-05 17 /min [facility] of 16:00:00 [facility] Oxygen saturation 2020-02-05 98 /min [facility] in Arterial blood 16:00:00 [facility] by Pulse oximetry [place] Body height 2020-01-28 185.4 cm University of 23:13:00 [facility] Body weight 2020-01-28 68.04 kg University of 23:13:00 [facility] BMI 2020-01-28 19.79 kg/m2 [facility] of 23:13:00 [facility] Systolic blood 2020-01-27 114 mm[Hg] [facility] of pressure 00:32:00 [facility] Diastolic blood 2020-01-27 66 mm[Hg] University o f pressure 00:32:00 [facility] Heart rate 2020-01-27 73 /min [facility] of 00:32:00 [facility] Body temperature 2020-01-27 36.67 Tasia [facility] 00:32:00 [facility] Respiratory rate 2020-01-27 18 /min [facility] 00:32:00 [facility] Oxygen saturation 2020-01-27 97 /min [facility] in Arterial blood 00:32:00 [place] [facility] Pulse oxim[facility] Body height 2020-01-24 185.4 cm University of 23:55:00 [facility] Body weight 2020-01-24 68.04 kg University of 23:55:00 [facility] BMI 2020-01-24 19.79 kg/m2 University of 23:55:00 [facility] Systolic blood 2020-01-27 114 mm[Hg] [facility] of pressure 00:32:00 [facility] Diastolic blood 2020-01-27 66 mm[Hg] [facility] o f pressure 00:32:00 [facility] Heart rate 2020-01-27 73 /min [facility] of 00:32:00 [facility] Body temperature 2020-01-27 36.67 Tasia [facility] 00:32:00 [facility] Respiratory rate 2020-01-27 18 /min [facility] of 00:32:00 [facility] Oxygen saturation 2020-01-27 97 /min [facility] in Arterial blood 00:32:00 [facility] mariusz by Pulse oximetry Branch Body height 2020-01-24 185.4 cm University of :55:00 [facility] Body weight 2020-01-24 68.04 kg University of 23:55:00 [facility] BMI 2020-01-24 19.79 kg/m2 University of 23:55:00 [facility] Body temperature 2019-12-13 36.72 Tasia [facility] of 02:56:16 [facility] Systolic blood 2019-12-13 114 mm[Hg] [facility] of pressure 01:57:00 [facility] Diastolic blood 2019-12-13 77 mm[Hg] University o f pressure 01:57:00 [facility] Heart rate 2019-12-13 75 /min University of 01:57:00 [facility] Respiratory rate 2019-12-13 20 /min University of 01:57:00 [facility] Body height 2019-12-13 185.4 cm [facility] :57:00 [facility] Body weight 2019-12-13 68.04 kg [facility] :57:00 [facility] BMI 2019-12-13 19.79 kg/m2 [facility] :57:00 [facility] Oxygen saturation 2019-12-13 97 /min [facility] in Arterial blood 01:57:00 [facility] by Pulse oximetry Branch Body temperature 2019-12-13 36.72 Tasia [facility] 02:56:16 [facility] Systolic blood 2019-12-13 114 mm[Hg] University of pressure 01:57:00 [facility] Diastolic blood 2019-12-13 77 mm[Hg] [facility] f pressure 01:57:00 [facility] Heart rate 2019-12-13 75 /min [facility] :57:00 [facility] Respiratory rate 2019-12-13 20 /min [facility] :57:00 [facility] Body height 2019-12-13 185.4 cm [facility] :57:00 [facility] Body weight 2019-12-13 68.04 kg [facility] :57:00 [facility] BMI 2019-12-13 19.79 kg/m2 [facility] :57:00 [facility] Oxygen saturation 2019-12-13 97 /min [facility] in Arterial blood 01:57:00 [facility] by Pulse oximetry Branch Systolic blood 2022-03-13 94 mm[Hg] [facility] pressure 15:33:00 Diastolic blood 2022-03-13 62 mm[Hg] [facility] h pressure 15:33:00 Heart rate 2022-03-13 109 /min [facility] 15:33:00 Body temperature 2022-03-13 36.67 Tasia [facility] th 15:33:00 Respiratory rate 2022-03-13 20 /min [facility] 15:33:00 Body height 2022-03-13 185.4 cm [facility] 15:33:00 Body weight 2022-03-13 66.679 kg [facility] 15:33:00 BMI 2022-03-13 19.39 kg/m2 [facility] 15:33:00 Oxygen saturation 2022-03-13 100 /min [facility] in Arterial blood 15:33:00 by Pulse oximetry Systolic blood 2022-03-09 107 mm[Hg] [facility] pressure 11:00:00 [facility] Diastolic blood 2022-03-09 66 mm[Hg] [facility] pressure 11:00:00 [facility] Heart rate 2022-03-09 58 /min [facility] 11:00:00 [facility] Body temperature 2022-03-09 36.[address] [facility] 11:00:00 [facility] Respiratory rate 2022-03-09 16 /min [facility] 11:00:00 [facility] Oxygen saturation 2022-03-09 100 /min [facility] Arterial blood 11:00:00 [facility]ter by Pulse oximetry Body height 2022-03-06 185.[address] [facility] 12:05:00 [facility] Body weight 2022-03-06 [address] [facility] 12:05:00 [facility] BMI 2022-03-06 19.13 kg/m2 [facility] 12:05:00 [facility] Procedures Procedure Date / Time Performing Clinician Source Performed COMP. METABOLIC PANEL 2022-04-10 03:54:00 Alvarez Austin [facility] ([id number]) [facility] CBC WITH DIFF 2022-04-10 03:49:00 Alvarez Austin [facility] LIPASE 2022-04-10 03:07:00 Alvarez Austin [facility] XR CHEST 2 VW 2022-04-10 02:59:18 Alvarez Austin [facility] COVID-19 (ID NOW RAPID 2022-04-10 02:43:00 Alvarez Austin [facility] TESTING) Medical Branch PHOSPHORUS 2022-04-08 10:26:00 Shelia Lemus [facility] MAGNESIUM 2022-04-08 10:26:00 Kurt [facility] BASIC METABOLIC PANEL (NA, 2022-04-08 10:26:00 Shelia Lemus [facility] K, CL, CO2, GLUCOSE, BUN, Medica l Branch CREATININE, [place]) CBC WITH DIFF 2022-04-08 10:26:00 Kurt [facility] PHOSPHORUS 2022-04-07 09:45:00 Albustami [facility] MAGNESIUM 2022-04-07 09:45:00 [facility] BASIC METABOLIC PANEL (NA, 2022-04-07 09:45:00 Marcela Don [facility] K, CL, CO2, GLUCOSE, BUN, Medica l Branch CREATININE, CA) LACTIC ACID WHOLE BLOOD 2022-04-06 09:05:00 Kurt [facility] MAGNESIUM 2022-04-06 09:04[facility] (NA, 2022-04-06 09:04:00 [facility], GLUCOSE, BUN, Medica l Branch CREATININE, CA) CBC WITH DIFF 2022-04-06 09:04[facility] (NA, 2022-04-05 08:12:00 Agatha Noonan [facility] K, CL, CO2, GLUCOSE, BUN, Medica l Branch CREATININE, CA) ACUTE CARE VENOUS BLOOD 2022-04-05 08:12:00 Octavio Macario [facility] CBC WITH DIFF 2022-04-05 08:12:00 Shaista [facility] BASIC METABOLIC PANEL (NA, 2022-04-04 09:03:00 Rolf Lemus [facility] K, CL, CO2, GLUCOSE, BUN, Medica l Branch CREATININE, CA) US RETROPERITONEAL LIMITED 2022-04-03 23:10:49 Octavio Macario [facility] ACUTE CARE VENOUS BLOOD 2022-04-03 18:33:00 Octavio Macario [facility] OSMOLALITY URINE 2022-04-03 17:59:00 Octavio Macario [facility] [facility] BASIC METABOLIC PANEL (NA, 2022-04-03 17:59:00 Octavio Macario [facility] K, CL, CO2, GLUCOSE, BUN, Medica l Branch CREATININE, CA) CREATININE, URINE RANDOM 2022-04-03 17:59:00 Octavio Macario [facility] POTASSIUM, URINE RANDOM 2022-04-03 17:59:00 [facility]INE RANDOM 2022-04-03 17:59:00 Amirah [facility] MAGNESIUM 2022-04-03 09:29:00 Amirah [facility] OSMOLALITY, SERUM OR 2022-04-03 09:29:00 Amirah [facility] PLASMA [facility] BASIC METABOLIC PANEL (NA, 2022-04-03 09:29:00 Juventino Thomas [facility] K, CL, CO2, GLUCOSE, BUN, Medica l Branch CREATININE, CA) CBC WITH DIFF 2022-04-03 09:29:00 [facility] CLOSTRIDIUM DIFFICILE 2022-04-03 03:44:[address] [facility] TOXIN [facility] LACTIC ACID WHOLE BLOOD 2022-04-03 03:38:00 [facility] LACTIC ACID WHOLE BLOOD 2022-04-03 00:07:00 [facility] URINE CULTURE 2022-04-02 22:39:00 Aguila [facility] CT ABDOMEN PELVIS WO 2022-04-02 21:07:00 Rekha Sheehan [facility] CONTRAST [facility] LIPASE 2022-04-02 20:00:00 Aguila [facility] TROPONIN I 2022-04-02 20:00:00 Aguila [facility] HEPATIC FUNCTION PANEL 2022-04-02 20:00:00 Rekha Sheehan [facility] ([id number]) (ALB,T.PRO,BILI Medical Branch T,BU/BC,ALT,AST,ALK PHOS) BASIC METABOLIC PANEL (NA, 2022-04-02 20:00:00 Rekha Sheehan [facility] K, CL, CO2, GLUCOSE, BUN, Medica l Branch CREATININE, CA) URINALYSIS 2022-04-02 20:00:00 Aguila [facility] CBC WITH DIFF 2022-04-02 18:20:00 Rekha Sheehan [facility] COVID-19 (ID NOW RAPID 2022-04-02 18:20:00 Rekha Sheehan [facility] TESTING) Medical Branch LAB ONLY COVID 2022-04-02 18:20:00 Rekha Sheehan [facility] INTERPRETATION [facility] Branch XR CHEST 2 VW 2022-04-02 17:29:13 Aguila [facility] HB ECG ROUTINE & RHYTHM 2022-04-02 16:32:43 Rekha Sheehan [facility] STRIP Medical Branch CONSENT/REFUSAL FOR 2022-04-02 16:29:46 Doctor Unassigned, [facility] DIAGNOSIS AND TREATMENT [place] [facility] BASIC METABOLIC PANEL (7) 2022-03-07 05:51:00 [facility] HEPATIC FUNCTION PANEL 2022-03-07 05:51:00 [facility] CBC W/PLT COUNT & AUTO 2022-03-07 05:51:00 [facility] CBC W/PLT COUNT & AUTO 2022-03-07 05:51:00 [facility] DIFFERENTIAL [place] US RENAL COMPLETE 2022-03-06 18:23:00 [facility] SARS-COV2/RT-PCR ([facility] 2022-03-06 17:36:00 [facility] REF LABS) Center TSH/FREE T4 IF INDICATED 2022-03-06 14:18:00 Aryan Tello [facility] T4, FREE 2022-03-06 14:18:00 Aryan Tello [facility] ED ECG INTERPRETATION 2022-03-06 13:48:12 Aryan Tello [facility] XR CHEST 1 VIEW PORTABLE / 2022-03-06 13:42:00 Aryan Tello [facility] BEDSIDE [facility] B-TYPE NATRIURETIC FACTOR 2022-03-06 13:23:00 Aryan Tello [facility] (BNP) [facility] CBC W/PLT COUNT & AUTO 2022-03-06 13:23:00 Elisha Rasheedamerrick [facility] DIFFERENTIAL [facility] COMPREHENSIVE METABOLIC 2022-03-06 13:23:00 [facility] PANEL [facility] HIGH SENSITIVITY TROPONIN 2022-03-06 13:23:00 JonnagideonAryan I [facility] I [facility] MAGNESIUM 2022-03-06 13:23:00 Jonnagideon Aryan [facility] PHOSPHORUS 2022-03-06 13:23:00 Jonnagideon [facility] LACTIC ACID, VENOUS 2022-03-06 13:23:00 [facility] CREATINE KINASE (CK) 2022-03-06 13:23:00 Jonnagideon [facility] CBC W/PLT COUNT & AUTO 2022-03-06 13:23:00 Elisha Aryan [facility] DIFFERENTIAL [facility] ECG 12-LEAD 2022-03-06 12:12:56 Unknown, [facility] ECG 12-LEAD 2022-03-06 12:12:56 Unknown, [facility] ECG 12-LEAD 2022-03-06 12:12:56 Unknown, [facility] EKG-SCANNED 2022-03-06 00:00:00 Provider, [facility] CBC (WITHOUT DIFFERENTIAL) 2022-02-20 05:10:00 Rufino Lazaro [employer] BASIC METABOLIC PANEL 2022-02-20 05:10:00 Rufino Lazaro Health MAGNESIUM 2022-02-20 05:10:00 Rufino Lazaro h PHOSPHORUS 2022-02-20 05:10:00 Rufino Lazaro h INFUSION PUMP 2022-02-19 19:03:50 Rufino Lazaro h COMPREHENSIVE METABOLIC 2022-02-19 06:35:00 F[facility] PANEL CBC/DIFF 2022-02-19 06:35:00 Fannie Blake alth PHOSPHORUS 2022-02-19 06:35:00 Fannie Blake alth CBC 2022-02-19 06:35:00 Fannie Blake alth URINALYSIS W/REFLEX TO 2022-02-19 00:34:00 Fannie Blake [facility] URINE CULTURE URINALYSIS 2022-02-19 00:34:00 Chadd Palacios URINE CULTURE COLLECTION 2022-02-19 00:34:00 Chadd Palacios [facility] KIT SARS-COV-2, FLU A/B, RSV 2022-02-18 19:00:00 Chadd Palacios [facility] CORONAVIRUS, COVID-19, OLENA 2022-02-18 19:00:00 Chadd Palacios [facility] XRAY CHEST 1 VIEW 2022-02-18 15:23:00 Roz Scales [facility] CONSULT CLINICAL CASE 2022-02-18 14:50:50 Roz Scales [facility] MANAGEMENT (RN/SW) CBC/DIFF 2022-02-18 14:16:00 AlbSusana [address] [facility] h BASIC METABOLIC PANEL 2022-02-18 14:16:00 [facility] MAGNESIUM 2022-02-18 14:16:00 [address] Co[address] [facility] h PHOSPHORUS 2022-02-18 14:16:[address] [facility] h CREATINE KINASE (CK) 2022-02-18 14:16:00 [facility] CBC 2022-02-18 14:16:[address] [facility] h BASIC METABOLIC PANEL 2022-02-11 03:34:00 Daily Islas [facility] MAGNESIUM 2022-02-11 03:34:00 Teresa Alves [facility] th PHOSPHORUS 2022-02-11 03:34:00 Teresa Alves [facility] CBC (WITHOUT DIFFERENTIAL) 2022-02-11 03:34:00 [facility] CBC/DIFF 2022-02-10 03:39:00 Daily [facility]OLIC PANEL 2022-02-10 03:39:[address] [facility] 2022-02-10 03:39:00 [facility] THYRO[facility] STIMUL[facility] 2022-02-10 03:39:00 JamilahfredericTeresa [facility] HORMONE (TSH) FREE T4 2022-02-10 03:39:00 LongTeresa [facility] CBC/DIFF 2022-02-09 04:38:00 [facility] BASIC METABOLIC PANEL 2022-02-09 04:38:00 Antonieta [facility] CBC 2022-02-09 04:38:00 Antonieta [facility] CORTISOL, TOTAL 2022-02-08 11:37:00 Jian Schmitt [facility] GLUCOSE POC 2022-02-08 08:07:00 Daily Islas [facility] CBC (WITHOUT DIFFERENTIAL) 2022-02-08 04:00:00 Jian Schmitt [facility] COMPREHENSIVE METABOLIC 2022-02-08 04:00:00 Jian Schmitt [facility] PANEL PHOSPHORUS 2022-02-08 04:00:00 Jian Schmitt [facility] ealth MAGNESIUM 2022-02-08 04:00:00 Jian Schmitt [facility] PT/INR 2022-02-08 04:00:00 Jian Schmitt [facility] URINALYSIS W/REFLEX TO 2022-02-07 18:06:00 [facility] URINE CULTURE URINALYSIS 2022-02-07 18:06:[address] [facility] URINE CULTURE COLLECTION 2022-02-07 18:06:00 Areli Arciniega [facility] KIT ELECTROLYTES, URINE 2022-02-07 18:06:00 Jyoti Carrillo [facility] OSMOLALITY, URINE 2022-02-07 18:06:00 [facility] SARS-COV-2, FLU A/B, RSV 2022-02-07 18:05:00 Jyoti Carrillo [facility] CORONAVIRUS, COVID-19, OLENA 2022-02-07 18:05:00 Jyoti Carrillo [facility] NUTRITION CONSULT 2022-02-07 17:43:36 Jian Schmitt [facility] ASSESSMENT BASIC METABOLIC PANEL 2022-02-07 17:18:[address] [facility] LACTIC ACID 2022-02-07 14:04:00 Jazmine Arciniegager Chiara Maged Douglas alth CBC/DIFF 2022-02-07 14:03:00 Areli Arciniega Lynne alth BASIC METABOLIC PANEL 2022-02-07 14:03:00 Areli Arciniega [facility] LIVER PROFILE 2022-02-07 14:03:00 Areli Arciniega [facility]aged [facility] LIPASE 2022-02-07 14:03:00 Areli Arciniega Lynne alth MAGNESIUM 2022-02-07 14:03:00 Suze Areli Lynne alth PHOSPHORUS 2022-02-07 14:03:00 Jazmine Arciniegager Lynne alth TROPONIN I 2022-02-07 14:03:00 Areli Arciniega Chiara Lynne alth CBC 2022-02-07 14:03:00 Areli Arciniega [facility] alth 12 LEAD EKG 2022-01-21 15:46:10 Ori Goldberg [facility] CBC/DIFF 2022-01-21 04:11:00 Tien Lucas [facility] MAGNESIUM 2022-01-21 04:11:00 Tien Lucas [facility] PHOSPHORUS 2022-01-21 04:11:00 LindseyTien P [facility] BASIC METABOLIC PANEL 2022-01-21 04:11:00 Ori Goldberg [facility] CBC 2022-01-21 04:11:00 LindseyTien Heal CBC/DIFF 2022-01-20 04:37:00 LindseyTien Lynne [facility]al MAGNESIUM 2022-01-20 04:37:00 LindseyTien [facility] PHOSPHORUS 2022-01-20 04:37:00 Tien Lucas P [facility] BASIC METABOLIC PANEL 2022-01-20 04:37:00 LindseyTien s Health CBC 2022-01-20 04:37:00 LindseyTien P [facility] MAGNESIUM 2022-01-19 18:09:00 [facility] Tien P [facility] PHOSPHORUS 2022-01-19 18:09:00 [facility] Tien P [facility] BASIC METABOLIC PANEL 2022-01-19 18:09:00 [facility] Tien P [facility] CORTISOL, TOTAL 2022-01-19 18:09:00 Karin Bassett [facility] URINALYSIS W/REFLEX TO 2022-01-19 17:22:00 [facility] Tien P [facility] URINE CULTURE URINALYSIS 2022-01-19 17:22:00 [facility] URINE CULTURE COLLECTION 2022-01-19 17:22:00 Lindsey, Tien P [facility] Health KIT COMPUTED TOMOGRAPHY 2022-01-19 13:29:00 [facility] ABDOMEN AND PELVIS WITHOUT CONTRAST CBC/DIFF 2022-01-19 04:44:00 Lindsey Tien P [facility] CBC 2022-01-19 04:44:00 [facility] DIFFERENTIAL, MANUAL (NO 2022-01-19 04:44:00 LindseyTien P [facility] Health MORPHOLOGY)-[place] BASIC METABOLIC PANEL 2022-01-18 17:15:00 [facility] Tien P [facility] CBC/DIFF 2022-01-18 04:46:00 [facility] MAGNESIUM 2022-01-18 04:46:00 [facility] PHOSPHORUS 2022-01-18 04:46:00 [facility] Tien P [facility] BASIC METABOLIC PANEL 2022-01-18 04:46:00 Ori Goldbreg [facility] CBC 2022-01-18 04:46:00 [facility] HIV AG/AB COMBO ROUTINE 2022-01-18 04:46:00 Karin Bassett [facility] SCREENING ENTERIC PATHOGENS NUCLEIC 2022-01-18 03:25:00 Karin Bassett [facility] ACID TEST BASIC METABOLIC PANEL 2022-01-18 00:29:00 Ori Goldberg [facility] BASIC METABOLIC PANEL 2022-01-17 17:07:00 Tien Lucas s Health BASIC METABOLIC PANEL 2022-01-17 13:15:00 Tien Lucasi s Health CALPROTECTIN FECAL 2022-01-17 12:38:00 Tien Lucas ealtgera FECAL LEUKOCYTES 2022-01-17 12:38:00 Tien Lucas Hea lt T-TRANSGLUTAMINASE IGA 2022-01-17 12:22:00 Tien Lucas is Health BASIC METABOLIC PANEL 2022-01-17 08:51:00 Tien Lucas [facility] BASIC METABOLIC PANEL 2022-01-17 04:47:00 Tien [facility] CBC/DIFF 2022-01-17 04:47:00 Tien Lucas [facility] th MAGNESIUM 2022-01-17 04:47:00 Tien Lucas [facility] th PHOSPHORUS 2022-01-17 04:47:00 Tien Lucas [facility] CBC 2022-01-17 04:47:00 Tien Lucas [facility] BASIC METABOLIC PANEL 2022-01-17 00:08:00 Tien Lucas [facility] 12 LEAD EKG 2022-01-16 21:23:25 Tien Lucas [facility] BASIC METABOLIC PANEL 2022-01-16 21:08:00 [facility] XRAY CHEST 2 VIEWS 2022-01-16 19:56:00 Tien Lucas IP CONSULT TO PHYSICAL 2022-01-16 19:17:17 Tien Lucas [facility] THERAPY CONSULT CLINICAL CASE 2022-01-16 19:17:17 [facility] MANAGEMENT (RN/SW) SEQUENTIAL COMPRESSION 2022-01-16 19:17:17 Tien Lucas [facility] PUMP SODIUM, URINE, RANDOM 2022-01-16 16:00:00 Kevin Nieves [facility] CREATININE, URINE, RANDOM 2022-01-16 16:00:00 Kevin Nieves [facility] OSMOLALITY, URINE 2022-01-16 16:00:00 Kevin Nieves [facility] SARS-COV-2, FLU A/B, RSV 2022-01-16 15:20:00 Kevin Nieves [facility] CORONAVIRUS, COVID-19, OLENA 2022-01-16 15:20:00 Kevin Nieves [facility] FOLIC ACID 2022-01-16 14:13:00 Kevin Nieves [facility] ealt CREATININE POC 2022-01-16 13:55:00 Raymon Martin [facility] BMP POC 2022-01-16 13:46:00 [facility] 2022-01-16 12:12:00 [facility] 2022-01-16 12:12:00 [facility] BAS[facility] METABOLIC PANEL 2022-01-16 12:11:[address] [facility] MAGNESIUM 2022-01-16 12:11:00 Sadiq Vargas [facility] VITAMIN B12 2022-01-16 12:11:00 Kevin Nieves [facility] OSMOLALITY,SERUM 2022-01-16 12:11:00 Kevin Nieves [facility] INFUSION PUMP 2022-01-11 09:21:05 Helene Anderson [facility] GLUCOSE POC 2022-01-11 07:54:00 Helene Anderson [facility] BASIC METABOLIC PANEL 2022-01-11 04:07:00 Merissa Richards [facility] MAGNESIUM 2022-01-11 04:07:00 [facility]-11 04:07:00 [facility]/DIFF 2022-01-11 04:06:00 Merissa Richards Healt h IRON PROFILE 2022-01-11 04:06:00 Merissa Richards Healt h FOLIC ACID 2022-01-11 04:06:00 [facility] 2022-[facility]-11 04:06:00 Merissa Richards [facility] GLUCOSE POC 2022-01-10 18:16:00 Helene Anderson [facility] URINALYSIS 2022-01-10 16:10:00 Merissa Richards [facility] URINALYSIS 2022-01-10 16:10:00 Merissa Richards [facility] SARS-COV-2, FLU A/B, RSV 2022-01-10 15:54:00 Merissa Richards [facility] CORONAVIRUS, COVID-19, OLENA 2022-01-10 15:54:00 Antoine Hester [facility] BASIC METABOLIC PANEL 2022-01-10 15:54:00 Merissa Richards [facility] VITAMIN B12 2022-01-10 15:54:00 Merissa Richards [facility] VBG POC 2022-01-10 11:14:00 Dia Jewell [facility] CBC/DIFF 2022-01-10 11:13:00 Antoine Hester [facility] BASIC METABOLIC PANEL 2022-01-10 11:13:00 Antoine Hester [facility] LACTIC ACID 2022-01-10 11:13:00 Antoine Hester [facility] CBC 2022-01-10 11:13:00 Antoine Hester [facility] LIVER PROFILE 2022-01-10 11:13:00 Merissa Richards [facility] CK, TOTAL 2022-01-10 11:13:00 Merissa Richards [facility] FERRITIN 2022-01-10 11:13:00 Merissa Richards [facility] CREATINE KINASE MB (CKMB) 2022-01-10 11:13:[address] [facility] XRAY CHEST 2 VIEWS 2022-01-08 21:50:14 Tanja Sebastian [facility] CBC/DIFF 2022-01-08 21:27:00 Tanja Sebastian [facility] BASIC METABOLIC PANEL 2022-01-08 21:27:[address] [facility] LIVER PROFILE 2022-01-08 21:27:00 Tanja Sebastian [facility] CK, TOTAL 2022-01-08 21:27:00 Tanja Sebastian [facility] TROPONIN I 2022-01-08 21:27:00 Tanja Sebastian [facility] CBC 2022-01-08 21:27:00 Tanja Sebastian [facility] CREATINE KINASE MB (CKMB) 2022-01-08 21:27:00 Tanja Sebastian [place] [id number] LEAD EKG 2022-01-08 20:59:56 Tanja Sebastian [facility] COMP. METABOLIC PANEL 2021-09-14 03:41:[address] [facility] ([id number]) [facility] CBC WITH DIFF 2021-09-14 03:41:00 Mickey Ramos [facility] CT HEAD WO CONTRAST 2021-09-12 14:10:00 Odin [facility] TROPONIN I 2021-09-12 13:00:00 Odin [facility] BASIC METABOLIC PANEL (NA, 2021-09-12 13:00:00 Odin [facility] K, CL, CO2, GLUCOSE, BUN, Medica l Branch CREATININE, CA) CBC WITH DIFF 2021-09-12 13:00:00 Odin [facility] N-TERMINAL PRO-BNP 2021-09-12 13:00:00 Alona Carty [facility] LIPASE 2021-09-09 05:30:00 Sebastian Pacheco [facility] COMP. METABOLIC PANEL 2021-09-09 05:30:00 Sebastian Pacheco [facility] ([id number]) [facility] CBC WITH DIFF 2021-09-09 05:30:00 Sebastian Pacheco [facility] URINALYSIS 2021-09-08 04:45:00 Sebastian Pacheco [facility] CT ABDOMEN PELVIS W 2021-09-08 02:25:23 Sebastian Pacheco [facility] CONTRAST [facility] Branch LIPASE 2021-09-08 02:02:00 Sebastian Pacheco [facility] COMP. METABOLIC PANEL 2021-09-08 02:02:00 Sebastian Pacheco [facility] ([id number]) Medical Branch CBC WITH DIFF 2021-09-08 02:02:00 Sebastian Pacheco [facility] LACTIC ACID WHOLE BLOOD 2021-09-08 02:02:00 Sebastian Pacheco [facility] COVID-19 (ID NOW RAPID 2021-09-08 01:54:00 Sebastian Pacheco [facility] TESTING) Medical Branch BASIC METABOLIC PANEL (NA, 2021-09-04 12:30:00 Demario Godoy [facility] K, CL, CO2, GLUCOSE, BUN, Medica l Branch CREATININE, CA) BASIC METABOLIC PANEL (NA, 2021-09-04 12:30:00 Demario Godoy [facility] K, CL, CO2, GLUCOSE, BUN, Medica l Branch CREATININE, CA) SURGICAL PATHOLOGY EXAM 2021-09-03 14:01:00 Mayela [facility] COLOSTOMY REVISION 2021-09-03 12:58:00 Phadmitrik [facility] COLOSTOMY REVISION 2021-09-03 12:58:00 Mayela, [facility] BASIC METABOLIC PANEL (NA, 2021-09-03 11:26:00 [facility] K, CL, CO2, GLUCOSE, BUN, Medica l Branch CREATININE, CA) CBC WITHOUT DIFF 2021-09-03 11:26:00 Neeru [facility] BASIC METABOLIC PANEL (NA, 2021-09-03 11:26:00 [facility] K, CL, CO2, GLUCOSE, BUN, Medica l Branch CREATININE, CA) CBC WITHOUT DIFF 2021-09-03 11:26:00 [facility] TRANSTHORACIC ECHO (TTE) 2021-09-02 21:22:12 Cynthia Siddiqi [facility] W/ CONTRAST Medical [facility] TRANSTHORACIC ECHO (TTE) 2021-09-02 21:22:12 Cynthia Siddiqi [facility] COMPLETE W/ CONTRAST Medical [facility] COVID-19 (ID NOW RAPID 2021-09-02 19:35:00 [facility] Medical Branch LAB ONLY COVID 2021-09-02 19:35:00 Demario Godoy [facility] INTERPRETATION Medical Branch COVID-19 (ID NOW RAPID 2021-09-02 19:35:00 Demario Godoy [facility] TESTING) Medical Branch LAB ONLY COVID 2021-09-02 19:35:00 Demario Godoy [facility] INTERPRETATION Medical Branch BASIC METABOLIC PANEL [...] CA) BLOOD CULTURE SCREEN 2021-09-01 08:03:00 Chasity [facility] BASIC METABOLIC PANEL (NA, 2021-09-01 08:03:00 Siddiqi, Cynthia [facility] [employer] [facility] [place] K, CL, CO2, GLUCOSE, BUN, Medica l Branch CREATININE, CA) CBC WITH DIFF 2021-09-01 08:03:00 Siddiqi, [facility] BLOOD CULTURE SCREEN 2021-09-01 08:03:00 Chasity [facility] BASIC METABOLIC PANEL (NA, 2021-09-01 08:03:00 Siddiqi, Cynthia [facility] [employer] [place] K, CL, CO2, GLUCOSE, BUN, Medica l Branch CREATININE, CA) CBC WITH DIFF 2021-09-01 08:03:00 Siddiqi, [facility] MAGNESIUM 2021-09-01 02:09:00 [facility] [place] [facility]OL[facility] PANEL (NA, 2021-09-01 02:09:00 Roberto [facility] K, CL, CO2, GLUCOSE, BUN, Arpita Medica l Branch CREATININE, CA) MAGNESIUM 2021-09-01 02:09:00 [facility] [place] BASIC METABOLIC PANEL (NA, 2021-09-01 02:09:00 Roberto [facility] K, CL, CO2, GLUCOSE, BUN, Ar[facility]ita [facility]ica [facility] CREATININE, CA) LACTIC ACID WHOLE BLOOD 2021-08-31 12:40:00 Siddiqi, [facility] LACTIC ACID WHOLE BLOOD 2021-08-31 12:40:[address] [facility], [facility] BASIC METABOLIC PANEL (NA, 2021-08-31 11:44:00 Gaspar, [facility] [place] K, CL, CO2, GLUCOSE, BUN, Medica l Branch CREATININE, CA) BASIC METABOLIC PANEL (NA, 2021-08-31 11:44:00 Gaspar, [facility] [place] K, CL, CO2, GLUCOSE, BUN, Medica l Branch CREATININE, CA) BASIC METABOLIC PANEL (NA, 2021-08-31 06:29:00 Gaspar, [facility] [place] K, CL, CO2, GLUCOSE, BUN, Medica l Branch CREATININE, CA) LACTIC ACID WHOLE BLOOD 2021-08-31 06:29:00 [facility] MET[facility]OLIC PANEL (NA, 2021-08-31 06:29:00 Chasity, [facility] [place] K, CL, CO2, GLUCOSE, BUN, Medica l Branch CREATININE, CA) LACTIC ACID WHOLE BLOOD 2021-08-31 06:29:00 [facility] BLOOD CULTURE SCREEN 2021-08-31 06:28:00 Chasity [facility] BLOOD CULTURE WORKUP 2021-08-31 06:28:00 Chasity [facility] GRAM POSITIVE BLOOD 2021-08-31 06:28:00 Gaspar, [facility] PATHOGENS [facility] PROBE-AEROBIC BLOOD CULTURE SCREEN 2021-08-31 06:28:00 Chasity [facility] BLOOD CULTURE WORKUP 2021-08-31 06:28:00 Chasity [facility] GRAM POSITIVE BLOOD 2021-08-31 06:28:00 Chasity [facility] PATHOGENS [facility] PROBE-AEROBIC XR CHEST 2 VW 2021-08-31 03:08:00 Riccardo [facility] XR CHEST 2 VW 2021-08-31 03:08:00 Riccardo [facility] OSMOLALITY, SERUM OR 2021-08-31 02:44:00 [facility] TROP[facility]IN [facility] 2021-08-31 02:44:00 Riccardo [facility] THYROID STIMULATING 2021-08-31 02:44:00 Chasity [facility] BASIC METABOLIC PANEL (NA, 2021-08-31 02:44:00 Riccardo [facility] K, CL, CO2, GLUCOSE, BUN, [facility] CREATININE, CA) OSMOLALITY, SERUM OR 2021-08-31 02:44:00 Chasity [facility] TROPONIN I 2021-08-31 02:44:00 Riccardo [facility] THYROID STIMULATING 2021-08-31 02:44:00 Chasity [facility] BASIC METABOLIC PANEL (NA, 2021-08-31 02:44:00 [facility] K, CL, CO2, GLUCOSE, BUN, [facility] CREATININE, CA) OSMOLALITY URINE 2021-08-31 00:08:00 [facility] 2021-08-31 00:08:00 Riccardo [facility] SODIUM, URINE RANDOM 2021-08-31 00:08:00 [facility] RANDOM 2021-08-31 00:08:00 Gaspar [facility] OSMOLALITY URINE 2021-08-31 00:08:00 Gaspar [facility] URINALYSIS 2021-08-31 00:08:00 [facility] 2021-08-31 00:08:00 [facility], URINE RANDOM 2021-08-31 00:08:00 [facility] TROPONIN I 2021-08-30 23:27:00 Riccardo [facility] COMP. METABOLIC PANEL 2021-08-30 23:27:00 Riccardo [facility] ([id number]) [facility] CBC WITH DIFF 2021-08-30 23:27:00 Riccardo [facility] N-TERMINAL PRO-BNP 2021-08-30 23:27:00 Riccardo [facility] TROPONIN I 2021-08-30 23:27:00 Riccardo [facility] COMP. METABOLIC PANEL 2021-08-30 23:27:00 Riccardo [facility] ([id number]) [facility] CBC WITH DIFF 2021-08-30 23:27:00 Riccardo [facility] N-TERMINAL PRO-BNP 2021-08-30 23:27:00 Gayatri Gu [facility] HB ECG ROUTINE & RHYTHM 2021-08-30 23:04:48 Gayatri Gu [facility] HB ECG ROUTINE & RHYTHM 2021-08-30 23:04:48 Gayatri Gu [facility] XR CHEST 1 VW 2021-08-30 00:31:51 Alvarez Austin [facility] POCT RAPID STREP SCREEN 2021-08-30 00:24:00 Alvarez Austin [facility] FOR GROUP A Medical Branch GALV ONLY - INFLUENZA A B 2021-08-30 00:15:00 Alvarez Austin [facility] RSV PCR [facility] COVID-19 (MOLECULAR 2021-08-30 00:15:00 [facility] NUCLEIC ACID AMPLIFICATION) PREALBUMIN, SERUM 2021-08-05 10:46:00 Cesar [facility] PHOSPHORUS 2021-08-05 10:46:00 [facility] AL[facility]IN 2021-08-05 10:46:00 Cesar, [facility] MAGNESIUM 2021-08-05 10:46:00 Cesar, [facility] BASIC METABOLIC PANEL (NA, 2021-08-05 10:46:00 [facility], CO2, GLUCOSE, BUN, Medica l Branch CREATININE, CA) CBC WITH DIFF 2021-08-05 10:46:00 Cesar [facility] COVID-19 (ID NOW RAPID 2021-08-05 00:29:00 Cesar [facility] TESTING) Medical Branch PHOSPHORUS 2021-08-04 11:37:00 Hakeem Jo [facility] MAGNESIUM 2021-08-04 11:37:00 Hakeem Jo [facility] BASIC METABOLIC PANEL (NA, 2021-08-04 11:37:00 Hakeem Jo [facility] K, CL, CO2, GLUCOSE, BUN, [place] [facility] CREATININE, CA) CBC WITH DIFF 2021-08-04 11:37:00 Hakeem Jo [facility] PHOSPHORUS 2021-08-03 10:36:00 Hakeem Jo [facility] MAGNESIUM 2021-08-03 10:36:00 Hakeem Jo [facility] BASIC METABOLIC PANEL (NA, 2021-08-03 10:36:00 Hakeem Jo, [facility] K, CL, CO2, GLUCOSE, BUN, [facility] CREATININE, CA) CBC WITH DIFF 2021-08-03 10:36:00 Hakeem Jo [facility] PHOSPHORUS 2021-08-02 10:53:00 Hakeem Jo [facility] MAGNESIUM 2021-08-02 10:53:00 [facility] BASIC MET[facility]OLIC PANEL (NA, 2021-08-02 10:53:00 Hakeem Jo, [facility] [place] K, CL, CO2, GLUCOSE, BUN, [facility] CREATININE, CA) CBC WITH DIFF 2021-08-02 10:53:00 [facility] 2021-08-01 10:03:00 [facility] MAGNESIUM 2021-08-01 10:03:00 [facility] BASIC METABOLIC PANEL (NA, 2021-08-01 10:03:00 Hakeem Jo, [facility] K, CL, CO2, GLUCOSE, BUN, [facility] CREATININE, CA) CBC WITH DIFF 2021-08-01 10:03:00 [facility] PREALBUMIN, SERUM 2021-07-31 10:22:00 Antonino jin [facility] Leda, [facility] Bran h PHOSPHORUS 2021-07-31 10:22:00 [facility] MAGNESIUM 2021-07-31 10:22:00 [facility] BASIC METABOLIC PANEL (NA, 2021-07-31 10:22:00 Hakeem Jo, [facility] K, CL, CO2, GLUCOSE, BUN, [facility] CREATININE, CA) CBC WITH DIFF 2021-07-31 10:22:00 [facility] COVID-[facility] (ID NOW RAPID 2021-07-30 06:13:00 Jonah Rees [facility] TESTING) Medical Branch LAB ONLY COVID 2021-07-30 06:13:00 Jonah Rees [facility] INTERPRETATION [facility] CT ABDOMEN PELVIS W 2021-07-30 05:19:01 Jonah Rees [facility] CONTRAST Medical Branch COMP. METABOLIC PANEL 2021-07-30 03:25:[address] [facility] ([id number]) Medical Branch LACTIC ACID WHOLE BLOOD 2021-07-30 02:53:00 NegritaJonah escoto [facility] Medical Branch LIPASE 2021-07-30 02:52:00 NegritaJonah escoto [facility] CBC WITH DIFF 2021-07-30 02:52:00 NegritaJonah escoto [facility] CONSENT/REFUSAL FOR 2021-07-30 02:09:09 Doctor Unassigned, [facility] DIAGNOSIS AND TREATMENT [place] [facility] PHOSPHORUS 2021-07-26 12:30:00 Antonino Dietrich [facility] [place], [place] [facility] MAGNESIUM 2021-07-26 12:30:00 Antonino Poli [facility] [place], [place] [facility] BASIC METABOLIC PANEL (NA, 2021-07-26 12:30:00 Antonino Karlo wa [facility] K, CL, CO2, GLUCOSE, BUN, [place], [place] [facility] ical [facility] CREATININE, CA) CBC WITH DIFF 2021-07-26 12:30:00 Antonino Karlo [facility] [place], [place] [facility] PHOSPHORUS 2021-07-25 11:32:00 Hakeem Jo [facility] MAGNESIUM 2021-07-25 11:32:00 [facility] BASIC METABOLIC PANEL (NA, 2021-07-25 11:32:00 Antonino Karlo wa [facility] K, CL, CO2, GLUCOSE, BUN, [place], [place] Med ical [facility] CREATININE, CA) CBC WITH DIFF 2021-07-25 11:32:00 Antonino Karlo [facility] [place], [place] [facility] CBC WITH DIFF 2021-07-25 04:13:00 Cesar [facility] PHOSPHORUS 2021-07-24 12:18:00 Cesar [facility] MAGNESIUM 2021-07-24 12:18:00 Cesar, [facility] BASIC METABOLIC PANEL (NA, 2021-07-24 12:18:00 Jessica Guerrero [facility] K, CL, CO2, GLUCOSE, BUN, Medica l Branch CREATININE, CA) COVID-19 (ID NOW RAPID 2021-07-23 15:23:00 Flaco Lemus [facility] TESTING) Medical Branch LAB ONLY COVID 2021-07-23 15:23:00 Flaco Lemus [facility] INTERPRETATION [facility] URINALYSIS 2021-07-23 12:49:00 Hakeem Jo [facility] PHOSPHORUS 2021-07-23 12:42:00 Hakeem Jo [facility] MAGNESIUM 2021-07-23 12:42:00 [facility] BASIC METABOLIC PANEL (NA, 2021-07-23 12:42:00 Beau Benedict [facility] K, CL, CO2, GLUCOSE, BUN, [place] [facility] CREATININE, CA) CBC WITH DIFF 2021-07-23 12:42:00 Hakeem Jo, [facility] CT ABDOMEN PELVIS WO 2021-07-23 08:55:17 Flaco Lemus [facility] CONTRAST [facility] EXTERNAL PROVIDER RECORDS 2021-06-25 05:01:00 Doctor Unassigned, [facility] [place] [facility] BASIC METABOLIC PANEL (NA, 2021-06-03 10:37:00 Shweta Anderson [facility] K, CL, CO2, GLUCOSE, BUN, Medica l Branch CREATININE, CA) BASIC METABOLIC PANEL (NA, 2021-06-02 10:54:00 Shweta Anderson [facility] K, CL, CO2, GLUCOSE, BUN, Medica l Branch CREATININE, CA) CLOSTRIDIUM DIFFICILE 2021-06-01 22:51:00 [facility] FECAL PATHOGENS BY PCR 2021-06-01 22:51:00 Charly Fowler [facility] BASIC METABOLIC PANEL (NA, 2021-06-01 15:42:00 Shweta Anderson [facility] K, CL, CO2, GLUCOSE, BUN, Medica l Branch CREATININE, CA) LACTIC ACID WHOLE BLOOD 2021-06-01 05:38:00 Clementine Castellon [facility] CT ABDOMEN PELVIS W 2021-05-31 23:25:45 Willie Garrett [facility] CONTRAST [facility] LIPASE 2021-05-31 22:44:00 Willie Garrett [facility] TROPONIN I 2021-05-31 22:44:00 Willie Garrett [facility] COMP. METABOLIC PANEL 2021-05-31 22:44:[address] [facility] ([id number]) Medical Branch CBC WITH DIFF 2021-05-31 22:44:00 Willie Garrett [facility] COVID-19 (ID NOW RAPID 2021-05-31 22:44:00 Willie Garrett [facility] TESTING) Medical Branch LAB ONLY COVID 2021-05-31 22:44:00 Willie Garrett [facility] INTERPRETATION [facility] PHOSPHORUS 2021-05-21 09:03:00 Cesar [facility] MAGNESIUM 2021-05-21 09:03:00 Cesar [facility] BASIC METABOLIC PANEL (NA, 2021-05-21 09:03:00 Agatha Noonan [facility] K, CL, CO2, GLUCOSE, BUN, Medica l Branch CREATININE, CA) CBC WITH DIFF 2021-05-21 09:03:00 Agatha Noonan [facility] XR KUB 2021-05-20 20:02:49 Andrzej [facility] LIPASE 2021-05-20 20:00:00 Bernardo Donnelly [facility] COMP. METABOLIC PANEL 2021-05-20 20:00:[address] [facility] ([id number]) Medical Branch CBC WITH DIFF 2021-05-20 20:00:00 Bernardo Donnelly [facility] LACTIC ACID WHOLE BLOOD 2021-05-20 20:00:00 Bernardo Donnelly [facility] Medical Withams COVID-19 (ID NOW RAPID 2021-05-20 20:00:00 Bernardo Donnelly [facility] TESTING) Medical Branch BASIC METABOLIC PANEL (NA, 2021-05-08 10:04:00 [facility], CL, CO2, GLUCOSE, BUN, Medica l Branch CREATININE, CA) CBC WITH DIFF 2021-05-08 10:04:00 Irene Lora [facility] XR KUB 2021-05-08 09:44:22 Beto [facility] XR ABDOMEN 1 VW 2021-05-08 05:32:36 Irene Lora [facility] CT ABDOMEN PELVIS W 2021-05-08 01:08:43 Alona Pérez [facility] CONTRAST Medical Branch HEPATIC FUNCTION PANEL 2021-05-08 00:49:00 Beto [facility] ([id number]) (ALB,T.PRO,BILI Medical Branch T,BU/BC,ALT,AST,ALK PHOS) BASIC METABOLIC PANEL (NA, 2021-05-08 00:49:00 Alona Pérez [facility] K, CL, CO2, GLUCOSE, BUN, Medica l Withams CREATININE, CA) CBC WITH DIFF 2021-05-08 00:49:00 Beto [facility] COVID-19 (ID NOW RAPID 2021-05-08 00:42:00 Beto [facility] TESTING) Medical Branch LAB ONLY COVID 2021-05-08 00:42:00 Beto [facility] INTERPRETATION Medical Branch NOTICE OF PRIVACY 2020-09-27 01:47:31 Doctor Unassigned, [facility] PRACTICES [place] [facility] CONSENT/REFUSAL FOR 2020-09-27 01:47:01 Doctor Unassigned, [facility] DIAGNOSIS AND TREATMENT [place] [facility] BASIC METABOLIC PANEL (NA, 2020-08-23 10:03:00 [facility], [facility], CO2, GLUCOSE, BUN, Medica l Branch CREATININE, CA) CBC WITHOUT DIFF 2020-08-23 10:03:00 Judith Ingram [facility] COVID-19 (ID NOW RAPID 2020-08-23 00:23:00 Funmilayo Pinzon [facility] TESTING) Medical Branch HB ECG ROUTINE & RHYTHM 2020-08-22 22:19:37 Funmilayo Pinzon [facility] STRIP [facility] HEPATIC FUNCTION PANEL 2020-08-22 22:08:00 Funmilayo Pinzon [facility] ([id number]) (ALB,T.PRO,BILI Medical Branch T,BU/BC,ALT,AST,ALK PHOS) BASIC METABOLIC PANEL (NA, 2020-08-22 22:08:00 Nallely Pinzon [facility] K, CL, CO2, GLUCOSE, BUN, Medica l Branch CREATININE, CA) CBC WITH DIFF 2020-08-22 22:08:00 Funmilayo Pinzon [facility] CT SOFT TISSUE NECK W 2020-07-10 00:21:10 Juan M Aguillon [facility] URINALYSIS 2020-07-09 23:07:00 Juan M Aguillon [facility] BASIC METABOLIC PANEL (NA, 2020-07-09 22:51:00 Kirk Aguillon [facility] K, CL, CO2, GLUCOSE, BUN, Medica l Branch CREATININE, CA) CBC WITH DIFF 2020-07-09 22:51:00 Juan M Aguillon [facility] RAPID STREP SCREEN FOR 2020-07-09 22:51:00 Juan M Aguillon [facility] GROUP A Medical Branch COVID-19 (ID NOW RAPID 2020-07-09 22:51:00 Juan M Aguillon [facility] TESTING) Medical Branch CT ABDOMEN PELVIS W 2020-06-05 13:02:55 Travis Valdez [facility] CONTRAST [facility] URINALYSIS 2020-06-05 13:02:00 More Goetz [facility] EKG-12 LEAD 2020-06-05 11:57:46 More Goetz [facility] LIPASE 2020-06-05 11:57:00 More Goetz [facility] TROPONIN I 2020-06-05 11:57:00 More Goetz [facility] HEPATIC FUNCTION PANEL 2020-06-05 11:57:00 More Goetz [facility] ([id number]) (ALB,T.PRO,BILI [facility] T,BU/BC,ALT,AST,ALK PHOS) BASIC METABOLIC PANEL (NA, 2020-06-05 11:57:00 More Goetz [facility] K, CL, CO2, GLUCOSE, BUN, Medica l Branch CREATININE, CA) CBC WITH DIFF 2020-06-05 11:57:00 More Goetz [facility] LACTIC ACID WHOLE BLOOD 2020-06-05 11:57:00 More Goetz U [facility] PHOSPHORUS 2020-05-31 07:54:00 Judy Gomezmi Sandra [facility] MAGNESIUM 2020-05-31 07:54:00 Patricia, Katia Sandra [facility] BASIC METABOLIC PANEL (NA, 2020-05-31 07:54:00 Patricia, Katia Melendrez [facility] K, CL, CO2, GLUCOSE, BUN, Medica l Branch CREATININE, CA) CBC WITH DIFF 2020-05-31 07:54:00 Patricia Katia Sandra [facility] IR CHANGE OF ABSCESS DRAIN 2020-05-30 19:33:43 Ashwin Marshall [facility] PHOSPHORUS 2020-05-30 08:19:00 Lambangeloon Janet, [facility] MAGNESIUM 2020-05-30 08:19:00 Lambreton Janet, [facility] BASIC METABOLIC PANEL (NA, 2020-05-30 08:19:00 Socorro escoto [facility] K, CL, CO2, GLUCOSE, BUN, Rex Medica l Branch CREATININE, CA) PHOSPHORUS 2020-05-29 06:43:00 Lambsaima Gonzales, [facility] MAGNESIUM 2020-05-29 06:43:00 [facility] BAS[facility]ABOLIC PANEL (NA, 2020-05-29 06:43:00 Lambreton Carlos a, [employer] [place] K, CL, CO2, GLUCOSE, BUN, [facility] CREATININE, CA) PHOSPHORUS 2020-05-28 09:08:00 Lambreton Gonzales, [facility] MAGNESIUM 2020-05-28 09:08:00 [facility] BASIC METABOLIC PANEL (NA, 2020-05-28 09:08:00 Lambreton Carlos a, [employer] [place] K, CL, CO2, GLUCOSE, BUN, [facility] CREATININE, CA) PHOSPHORUS 2020-05-27 09:33:00 Lambreton Gonzales, [facility] MAGNESIUM 2020-05-27 09:33:00 [facility] BASIC METABOLIC PANEL (NA, 2020-05-27 09:33:00 Lambreton Carlos a, [facility] [place] K, CL, CO2, GLUCOSE, BUN, [facility] CREATININE, CA) PHOSPHORUS 2020-05-26 09:27:00 Lambreton Gonzales, [facility] MAGNESIUM 2020-05-26 09:27:00 [facility] BASIC METABOLIC PANEL (NA, 2020-05-26 09:27:00 Lambreton Carlos a, [employer] [place] K, CL, CO2, GLUCOSE, BUN, [facility] CREATININE, CA) PHOSPHORUS 2020-05-25 21:42:00 Lambreton Gonzales, [facility] MAGNESIUM 2020-05-25 21:42:00 [facility] BASIC METABOLIC PANEL (NA, 2020-05-25 21:42:00 Lambreton Carlos a, [employer] [place] K, CL, CO2, GLUCOSE, BUN, [facility] CREATININE, CA) CBC WITH DIFF 2020-05-25 21:42:00 [facility]UB 2020-05-25 20:39:54 Socorro [facility] PHOS[facility]US 2020-05-25 08:48:00 [facility] MAG[facility]ESIUM 2020-05-25 08:48:00 [facility] BASIC METABOLIC PANEL (NA, 2020-05-25 08:48:00 Socorro Martinezs a, [facility] K, CL, CO2, GLUCOSE, BUN, [facility]ams CREATININE, CA) PHOSPHORUS 2020-05-24 20:41:00 [facility] MAG[facility]ESIUM 2020-05-24 20:41:00 [facility] BASIC METABOLIC PANEL (NA, 2020-05-24 20:41:00 Socorro Martinezs a, [facility] K, CL, CO2, GLUCOSE, BUN, [facility] CREATININE, CA) IR CHANGE OF ABSCESS DRAIN 2020-05-24 17:57:11 Vance Stafford [facility] IR ASPIRATION ABSCESS 2020-05-24 17:24:40 Randa [facility] BULLA OR CYST BY NEEDLE [facility] ASPIRATE OR ABSCESS 2020-05-24 17:23:00 Nixon Prince [facility] CULTURE(AEROBIC/ANAEROBIC) Medic al Branch CBC WITH DIFF 2020-05-24 11:08:00 Alondra Fay [facility] Anahi [facility] CT ABDOMEN PELVIS W 2020-05-23 15:02:24 Randa Julio [facility] CONTRAST [facility] BASIC METABOLIC PANEL (NA, 2020-05-23 09:45:00 [facility], CL, CO2, GLUCOSE, BUN, Anahi Medica l Branch CREATININE, CA) COVID-19 (PCR MOLECULAR 2020-05-23 06:53:00 Bia Pedro [facility] TESTING) Medical Branch URINALYSIS 2020-05-22 21:41:00 Colette Nmgeri [facility] LIPASE 2020-05-22 21:26:00 Colette [facility] HEPATIC FUNCTION PANEL 2020-05-22 21:26:00 Alex Lopez [facility] ([id number]) (ALB,T.PRO,BILI Medical Branch T,BU/BC,ALT,AST,ALK PHOS) BASIC METABOLIC PANEL (NA, 2020-05-22 21:26:00 Alex Lopez [facility] K, CL, CO2, GLUCOSE, BUN, Medica l Branch CREATININE, CA) CBC WITH DIFF 2020-05-22 21:26:00 Colette [facility] PROTHROMBIN TIME / INR 2020-05-22 21:26:00 Alex Lopez [facility] ACTIVATED PARTIAL THRMPLAS 2020-05-22 21:26:00 Alex Lopez [facility] SELENA [facility] XR CHEST 1 VW 2020-05-22 20:55:00 Colette Nmgeri [facility] HOSPITAL ADMISSION 2020-05-22 05:01:00 Doctor Unassigned, [facility] [place] Medical [facility] URINALYSIS 2020-05-20 09:58:00 Jonah Rodriguez [facility] COVID-19 (ID NOW RAPID 2020-05-20 09:48:00 Jonah Rodriguez [facility] TESTING) Medical Branch CT ABDOMEN PELVIS W 2020-05-20 04:07:43 Jonah Rodriguez [facility] CONTRAST Medical Withams LIPASE 2020-05-20 03:09:00 Jonah Rodriguez [facility] MAGNESIUM 2020-05-20 03:09:00 [facility] TROPONIN I 2020-05-20 03:09:00 [facility] COMP. METABOLIC PANEL 2020-05-20 03:09:00 Jonah Rodriguez [facility] ([id number]) Medical Branch CBC WITH DIFF 2020-05-20 03:09:00 Michael [facility] PHOSPHORUS 2020-05-10 09:13:00 [place] [facility] MAGNESIUM 2020-05-10 09:13:00 [place] [facility] BASIC METABOLIC PANEL (NA, 2020-05-10 09:13:00 Randa, Julio [facility] [place] K, CL, CO2, GLUCOSE, BUN, Medica l Branch CREATININE, CA) CBC WITH DIFF 2020-05-10 09:13:00 [place] [facility] PHOSPHORUS 2020-05-09 10:28:00 [place] [facility] MAGNESIUM 2020-05-09 10:28:00 [place] [facility] BASIC METABOLIC PANEL (NA, 2020-05-09 10:28:00 [place], Julio [facility] [place] K, CL, CO2, GLUCOSE, BUN, Medica l Branch CREATININE, CA) CBC WITH DIFF 2020-05-09 10:28:00 Randa [facility] PHOSPHORUS 2020-05-08 11:18:00 Randa [facility] MAGNESIUM 2020-05-08 11:18[facility]00 [facility] BAS[facility]OLIC PANEL (NA, 2020-05-08 11:18:00 [place], Julio [facility] [place] K, CL, CO2, GLUCOSE, BUN, Medica l Branch CREATININE, CA) CBC WITH DIFF 2020-05-08 11:18:00 Randa [facility] PHOSPHORUS 2020-05-07 09:21:00 Randa [facility] MAGNESIUM 2020-05-07 09:21:00 Randa [facility] BASIC METABOLIC PANEL (NA, 2020-05-07 09:21:00 Randa, Julio [facility] [place] K, CL, CO2, GLUCOSE, BUN, Medica l Branch CREATININE, CA) CBC WITH DIFF 2020-05-07 09:21:00 Randa [facility] PHOSPHORUS 2020-05-06 09:57:00 [place] [facility] MAGNESIUM 2020-05-06 09:57:00 [facility] BASIC METABOLIC PANEL (NA, 2020-05-06 09:57:00 [place], Julio [facility] [place] K, CL, CO2, GLUCOSE, BUN, Medica l Branch CREATININE, CA) CBC WITH DIFF 2020-05-06 09:56:00 [facility] IR DRAINAGE BY CATHETER 2020-05-05 19:55[facility] Branch RETROPERITONEAL BODY FLUID 2020-05-05 19:06:00 Nixon Prince [facility] CULTURE(AEROBIC/ANAEROBIC) [facility] FUNGUS (ROUTINE) CULTURE 2020-05-05 19:06:00 Nixon [facility] BODY FLUID 2020-05-05 19:00:00 [facility] C[facility](AEROBIC/ANAEROBIC) [facility] FUNGUS (ROUTINE) CULTURE 2020-05-05 19:00:00 Ivan Guthrie [facility] PREPARE PACKED RBC 2020-05-05 15:59:33 [facility] 2020-05-05 10:55:00 [facility]UM 2020-05-05 08:56[facility]00 [facility] 2020-05-05 08:56:00 [facility] MAGNESIUM 2020-05-05 08:56:00 [facility] BASIC METABOLIC PANEL (NA, 2020-05-05 08:56:00 Randa [facility] K, CL, CO2, GLUCOSE, BUN, [facility] CREATININE, CA) CBC WITH DIFF 2020-05-05 08:56:00 [facility] URINALYSIS 2020-05-05 05:11:00 Lora Hall [facility] CT ABDOMEN PELVIS W 2020-05-05 04:18:56 Lora Hall [facility] CONTRAST [facility] LIPASE 2020-05-05 02:35:00 Lora Hall [facility] COMP. METABOLIC PANEL 2020-05-05 02:35:00 Lora Hall [facility] ([id number]) Medical Withams CBC WITH DIFF 2020-05-05 02:35:00 Lora Hall [facility] COVID-19 (ID NOW RAPID 2020-05-05 02:27:00 Lora Hall [facility] TESTING) Medical Branch HOSPITAL ADMISSION 2020-05-04 05:01:00 Doctor Unassigned, [facility] [place] Medical [facility] CBC WITH DIFF 2020-05-01 11:32:[facility] 2020-05-01 11:32:00 [facility] 2020-05-01 11:32:00 [facility] BASIC METABOLIC PANEL (NA, 2020-05-01 11:32:00 Randa [facility] K, CL, CO2, GLUCOSE, BUN, Medica l Branch CREATININE, CA) CBC WITH DIFF 2020-04-29 11:31:00 Randa [facility] PHOSPHORUS 2020-04-29 11:31:00 Randa [facility] MAGNESIUM 2020-04-29 11:31:00 [facility] BASIC METABOLIC PANEL (NA, 2020-04-29 11:31:00 Randa [facility] K, CL, CO2, GLUCOSE, BUN, Medica l Branch CREATININE, CA) CBC WITH DIFF 2020-04-28 08:51:00 Becyk [facility] MAGNESIUM 2020-04-28 08:51:00 Becky [facility] BASIC METABOLIC PANEL (NA, 2020-04-28 08:51:00 Becky [facility] K, CL, CO2, GLUCOSE, BUN, Cathryn Medica l Branch CREATININE, CA) CBC WITH DIFF 2020-04-27 09:34:00 Becky, [facility] MAGNESIUM 2020-04-27 09:34:00 Becky, [facility] BASIC METABOLIC PANEL (NA, 2020-04-27 09:34:00 Becky, [facility] K, CL, CO2, GLUCOSE, BUN, Cathryn [facility] CREATININE, CA) CBC WITH DIFF 2020-04-26 09:27:00 Becky, [facility] MAGNESIUM 2020-04-26 09:27:00 Becky, [facility] BASIC METABOLIC PANEL (NA, 2020-04-26 09:27:00 Becky, [facility] K, CL, CO2, GLUCOSE, BUN, Cathryn [facility] CREATININE, CA) CBC WITH DIFF 2020-04-25 08:59:00 Becky, [facility] MAGNESIUM 2020-04-25 08:59:00 Becky, [facility] BASIC METABOLIC PANEL (NA, 2020-04-25 08:59:00 Becky, [facility] K, CL, CO2, GLUCOSE, BUN, Cathryn [facility] CREATININE, CA) CBC WITH DIFF 2020-04-24 09:44:00 Becky, [facility] MAGNESIUM 2020-04-24 09:44:00 Becky, [facility] BASIC METABOLIC PANEL (NA, 2020-04-24 09:44:00 Becky, [facility] K, CL, CO2, GLUCOSE, BUN, [facility] CREATININE, CA) CT ABDOMEN PELVIS W 2020-04-23 23:24:02 Grant Cheema, [facility] CONTRAST [facility] CT THORAX W CONTRAST 2020-04-23 23:24:02 Grant Cheema, [facility] COVID-19 (ID NOW RAPID 2020-04-23 15:06:00 Grant Cheema, [facility] TESTING) [facility] PREALBUMIN, SERUM 2020-04-23 13:42:00 Grant Cheema [facility] POTASSIUM SERUM 2020-04-23 13:42:00 Becky [facility] CBC WITH DIFF 2020-04-23 10:17:00 Becky, [facility] MAGNESIUM 2020-04-23 10:17:00 Becky [facility] BASIC METABOLIC PANEL (NA, 2020-04-23 10:17:00 Becky, [facility] K, CL, CO2, GLUCOSE, BUN, Cathryn [facility] CREATININE, CA) XR CHEST 1 VW 2020-04-23 10:03:00 Becky, [facility] MAGNESIUM 2020-04-22 10:37:00 Becky, [facility] BASIC METABOLIC PANEL (NA, 2020-04-22 10:37:00 Becky [facility] K, CL, CO2, GLUCOSE, BUN, Cathryn [facility] CREATININE, CA) CBC WITH DIFF 2020-04-22 10:30:00 Becky [facility] XR CHEST 1 VW 2020-04-22 07:30:00 Becky [facility] CBC WITH DIFF 2020-04-21 13:09:00 Becky, [facility] MAGNESIUM 2020-04-21 13:09:00 Becky [facility] BASIC METABOLIC PANEL (NA, 2020-04-21 13:09:00 Becky [facility] K, CL, CO2, GLUCOSE, BUN, Cathryn [facility] CREATININE, CA) XR CHEST 1 VW 2020-04-21 06:41:00 Grant Cheema [facility] XR CHEST 1 VW 2020-04-20 11:03:41 Grant Cheema [facility] CBC WITH DIFF 2020-04-20 09:45:00 Katrina [facility] PREALBUMIN, SERUM 2020-04-20 09:45:00 Grant Cheema [facility] PHOSPHORUS 2020-04-20 09:45:00 Carola [facility] MAGNESIUM 2020-04-20 09:45:00 Katrina [facility] BASIC METABOLIC PANEL (NA, 2020-04-20 09:45:00 Yosvany Herndon [facility] K, CL, CO2, GLUCOSE, BUN, Medica [facility] CREATININE, CA) XR CHEST 1 VW 2020-04-19 10:13:45 Becky [facility] CBC WITH DIFF 2020-04-19 10:10:00 Katrina [facility] PHOSPHORUS 2020-04-19 10:10:00 Carola [facility] MAGNESIUM 2020-04-19 10:10:00 Katrina [facility] BASIC METABOLIC PANEL (NA, 2020-04-19 10:10:00 Katrina, Yosvany [facility] K, CL, CO2, GLUCOSE, BUN, Medica [facility] Branch CREATININE, CA) XR CHEST 1 VW 2020-04-18 11:01:00 Becky [facility] CBC WITH DIFF 2020-04-18 10:19:00 Katrina [facility] PHOSPHORUS 2020-04-18 10:19:00 Carola [facility] MAGNESIUM 2020-04-18 10:19:00 Katrina [facility] BASIC METABOLIC PANEL (NA, 2020-04-18 10:19:00 Katrina [facility], CL, CO2, GLUCOSE, BUN, Medica [facility] Branch CREATININE, CA) XR CHEST 1 VW 2020-04-17 18:58:00 Becky [facility] CBC WITH DIFF 2020-04-17 09:33:00 Katrina [facility] PHOSPHORUS 2020-04-17 09:33:00 Carola [facility] MAGNESIUM 2020-04-17 09:33:00 Katrina [facility] BASIC METABOLIC PANEL (NA, 2020-04-17 09:33:00 Katrina [facility] [place] K, CL, CO2, GLUCOSE, BUN, Medica l Branch CREATININE, CA) XR CHEST 1 VW 2020-04-17 08:52:00 Grant Cheema [facility] XR CHEST 1 VW 2020-04-16 23:45:00 Jamie Staffordalan [facility] BODY FLUID 2020-04-16 21:50:00 Health system CULTURE(AEROBIC/ANAEROBIC) Medic al Branch FUNGUS (ROUTINE) CULTURE 2020-04-16 21:50:00 Vance Stafford [facility] CYTO PLEURAL FLUID 2020-04-16 21:50:00 Jamie Staffordalan [facility] LDH TOTAL BODY FLUID 2020-04-16 21:50:00 Rivera Vance [facility] AMYLASE BODY FLUID 2020-04-16 21:50:00 Rivera [facility] GLUCOSE BODY FLUID 2020-04-16 21:50:00 Rivera [facility] PH, BODY FLUID 2020-04-16 21:50:00 Rivera [facility] T.PROTEIN BODY FLUID 2020-04-16 21:50:00 Rivera Vance [facility] BODY FLUID DIRECT COUNT 2020-04-16 21:50:00 Vance [facility] IR PLEURAL DRAINAGE WITH 2020-04-16 21:36:25 Rosaura Pena [facility] TUBE WITH IMAGING [facility] PROTHROMBIN TIME / INR 2020-04-16 16:07:00 Rosaura Pena [facility] CBC WITH DIFF 2020-04-16 10:07:00 Katrina [facility] PHOSPHORUS 2020-04-16 10:07:00 Carola [facility] MAGNESIUM 2020-04-16 10:07:00 Katrina [facility] BASIC METABOLIC PANEL (NA, 2020-04-16 10:07:00 Yosvany Herndon [facility] K, CL, CO2, GLUCOSE, BUN, Medica l Branch CREATININE, CA) CT ABDOMEN PELVIS W 2020-04-16 07:02:21 Grant Cheema [facility] CONTRAST [facility] CBC WITH DIFF 2020-04-15 10:02:00 Katrina [facility] PHOSPHORUS 2020-04-15 10:02:00 Carola [facility] MAGNESIUM 2020-04-15 10:02:00 Katrina [facility] BASIC METABOLIC PANEL (NA, 2020-04-15 10:02:00 Yosvany Herndon [facility] K, CL, CO2, GLUCOSE, BUN, Medica l Branch CREATININE, CA) CBC WITH DIFF 2020-04-14 10:26:00 Katrina [facility] PHOSPHORUS 2020-04-14 10:26:00 Carola [facility] MAGNESIUM 2020-04-14 10:26:00 Katrina [facility] BASIC METABOLIC PANEL (NA, 2020-04-14 10:26:00 Yosvany Herndon [facility] K, CL, CO2, GLUCOSE, BUN, Medica l Branch CREATININE, CA) BASIC METABOLIC PANEL (NA, 2020-04-13 23:53:00 Grant Santana i, [facility] K, CL, CO2, GLUCOSE, BUN, Danny [facility] CREATININE, CA) CBC WITHOUT DIFF 2020-04-13 23:53:00 Grant Cheema [facility] IR DRAINAGE BY CATHETER 2020-04-13 20:35:08 Grant Cheema [facility] PERITONEAL OR [facility] RETROPERITONEAL BODY FLUID 2020-04-13 20:05:00 Neris Grier [facility] CULTURE(AEROBIC/ANAEROBIC) [facility] LDH TOTAL BODY FLUID 2020-04-13 20:05:00 Grant Cheema, [facility] GLUCOSE BODY FLUID 2020-04-13 20:05:00 Grant Cheema [facility] T.PROTEIN BODY FLUID 2020-04-13 20:05:00 Grant Cheema, [facility] BODY FLUID DIRECT COUNT 2020-04-13 20:05:00 Grant Cheema [facility] CBC WITH DIFF 2020-04-13 10:44:00 Katrina [facility] PHOSPHORUS 2020-04-13 10:44:00 Carola [facility] MAGNESIUM 2020-04-13 10:44:00 Katrina [facility] BASIC METABOLIC PANEL (NA, 2020-04-13 10:44:00 [place], [facility] K, CL, CO2, GLUCOSE, BUN, Medica l Branch CREATININE, CA) CT ABDOMEN PELVIS W 2020-04-12 21:23:19 Grant Cheema [facility] URINALYSIS 2020-04-12 20:43:00 Becky [facility] URINE CULTURE 2020-04-12 20:43:00 Becky [facility] BLOOD CULTURE WORKUP 2020-04-12 18:51:00 Becky [facility] [place] GRAM NEGATIVE BLOOD 2020-04-12 18:51:00 Brodie PenaFormerly [facility] PATHOGENS [facility] PROBE-ANAEROBIC BLOOD CULTURE SCREEN 2020-04-12 18:51:00 Becky [facility] [place] BLOOD CULTURE SCREEN 2020-04-12 18:50:00 Becky [facility] [place] CBC WITH DIFF 2020-04-12 08:46:00 Katrina [facility] PHOSPHORUS 2020-04-12 08:46:00 Carola [facility] MAGNESIUM 2020-04-12 08:46:00 Katrina [facility] BASIC METABOLIC PANEL (NA, 2020-04-12 08:46:00 [facility], CL, CO2, GLUCOSE, BUN, Medica l Branch CREATININE, CA) CBC WITH DIFF 2020-04-11 08:54:00 Katrina [facility] PHOSPHORUS 2020-04-11 08:54:00 Carola [facility] MAGNESIUM 2020-04-11 08:54:00 Katrina [facility] BASIC METABOLIC PANEL (NA, 2020-04-11 08:54:00 Katrina [facility] K, CL, CO2, GLUCOSE, BUN, Medica l Branch CREATININE, CA) CBC WITH DIFF 2020-04-10 09:49:00 Katrina [facility] PHOSPHORUS 2020-04-10 09:49:00 Carola [facility] MAGNESIUM 2020-04-10 09:49:00 Katrina [facility] XR CHEST 1 VW 2020-04-09 11:27:00 Grant Cheema [facility] CBC WITH DIFF 2020-04-09 09:07:00 Katrina [facility] PHOSPHORUS 2020-04-09 09:07:00 Carola [facility] MAGNESIUM 2020-04-09 09:07:00 Katrina [facility] HEPATIC FUNCTION PANEL 2020-04-09 09:07:00 [id number] (ALB,T.PRO,[facility] T,BU/BC,ALT,AST,ALK PHOS) BASIC METABOLIC PANEL (NA, 2020-04-09 09:07:00 [facility], CL, CO2, GLUCOSE, BUN, Medica [facility] Branch CREATININE, CA) AC PANEL 20 + LACTIC ACID 2020-04-08 21:11:00 Yosvany Herndon [facility] POCT GLUCOSE (AUTOMATED) 2020-04-08 12:27:00 Bia Pedro [facility] AC PANEL 21 + LACTIC ACID 2020-04-08 09:34:00 Bigg Lawton [facility] POCT GLUCOSE (AUTOMATED) 2020-04-08 09:33:00 Bia Pedro [facility] CBC WITH DIFF 2020-04-08 09:26:00 Katrina [facility] MAGNESIUM 2020-04-08 09:26:00 Katrina [facility] BASIC METABOLIC PANEL (NA, 2020-04-08 09:26:00 Yosvany Herndon [facility] K, CL, CO2, GLUCOSE, BUN, Medica l Branch CREATININE, CA) POCT GLUCOSE (AUTOMATED) 2020-04-08 04:24:00 Phadmitrik, Bia Uni [facility] POCT GLUCOSE (AUTOMATED) 2020-04-08 00:36:00 Phatak Bia [facility] POCT GLUCOSE (AUTOMATED) 2020-04-07 21:24:00 Bia Pedro Uni [facility] POCT GLUCOSE (AUTOMATED) 2020-04-07 16:49:00 Bia Pedro [facility] AC PANEL 20 + LACTIC ACID 2020-04-07 14:14:00 Yosvany Herndon [facility] LACTIC ACID WHOLE BLOOD 2020-04-07 13:53:00 Grant Cheema [facility] POCT GLUCOSE (AUTOMATED) 2020-04-07 12:50:00 Bia Pedro [facility] AC PANEL 20 + LACTIC ACID 2020-04-07 11:16:00 Yosvany Herndon [facility] MAGNESIUM 2020-04-07 08:48:00 Katrina [facility] BASIC METABOLIC PANEL (NA, 2020-04-07 08:48:00 Yosvany Herndon [facility] K, CL, CO2, GLUCOSE, BUN, Medica l Branch CREATININE, CA) CBC WITH DIFF 2020-04-07 08:48:00 Katrina [facility] XR CHEST 1 VW 2020-04-07 08:10:[address] [facility] POCT GLUCOSE (AUTOMATED) 2020-04-07 04:36:00 Bia Pedro [facility] AC PANEL 21 + LACTIC ACID 2020-04-07 02:05:00 Bigg [place] [facility] MRSA / MSSA SCREEN BY PCR, 2020-04-07 02:05:00 Grant Santana i [facility] BLOOD CULTURE SCREEN 2020-04-07 02:05:00 Nevaeh [facility] POCT GLUCOSE (AUTOMATED) 2020-04-07 00:37:00 Bia Pedro [facility] HCV ANTIBODY 2020-04-06 23:44:00 [facility] PO[facility] GLU[facility]SE (AUTOMATED) 2020-04-06 23:43:00 Bia Pedro [facility] HIV 1/2 AG-AB WITH REFLEX 2020-04-06 23:30:00 Grant Cheema , [facility] POCT GLUCOSE (AUTOMATED) 2020-04-06 22:14:00 Bia Pedro [facility] ECHO ROUTINE W/DOPPLER 2020-04-06 20:25:55 Katrina [facility] PROTHROMBIN TIME / INR 2020-04-06 19:00:00 Becky [facility] ACTIVATED PARTIAL THRMPLAS 2020-04-06 19:00:00 Becky [facility] MAGNESIUM 2020-04-06 19:00:00 [facility] BASIC METABOLIC PANEL (NA, 2020-04-06 19:00:00 [facility], CO2, GLUCOSE, BUN, [facility] CREATININE, CA) COMP. METABOLIC PANEL 2020-04-06 19:00:[address] [facility] ([id number]) [facility] CBC WITH DIFF 2020-04-06 19:00:00 Katrina [facility] AC PANEL 21 + LACTIC ACID 2020-04-06 18:59:00 Simi Dennis [facility] ABG+COOX+NA+K+GLU+CA2+ 2020-04-06 16:06:00 Bia Pedro [facility] INTUBATION 2020-04-06 16:04:59 Ana Syed [facility] XR CHEST 1 VW 2020-04-06 15:43:00 Katrina [facility] SURGICAL PATHOLOGY EXAM 2020-04-06 15:12:00 Juventino Mccabe [facility] CENTRAL LINE 2020-04-06 14:52:37 Cynthia Herring [facility] E [facility] ARTERIAL LINE 2020-04-06 14:51:44 Ana Syed [facility] ASPIRATE OR ABSCESS 2020-04-06 14:50:29 Person, Juventino [facility] CULTURE(AEROBIC/ANAEROBIC) Medic pr Branch [employer] CULTURE 2020-04-06 14:50:29 Person, [facility] FUNGUS (ROUTINE) CULTURE 2020-04-06 14:50:29 Person, Juventino Herring [facility] ABG+COOX+NA+K+GLU+CA2+ 2020-04-06 14:46:00 Bia Pedro [facility] HB ABO GROUPING 2020-04-06 14:39:00 Dana Sampson [facility] EXPLORATORY LAPAROTOMY 2020-04-06 13:51:00 Person, Juventino [facility] URINE CULTURE 2020-04-06 13:48:00 Grant Cheema, [facility] XR KUB 2020-04-06 13:34:22 Grant Cheema [facility] XR CHEST 1 VW 2020-04-06 13:34:22 Grant Cheema, [facility] MAGNESIUM 2020-04-06 11:47:00 Becky [facility] BASIC METABOLIC PANEL (NA, 2020-04-06 11:47:00 Becky [facility] K, CL, CO2, GLUCOSE, BUN, [facility] CREATININE, CA) CBC WITH DIFF 2020-04-06 11:47:00 Becky [facility] XR KUB 2020-04-05 21:34:47 Grant Cheema [facility] XR KUB 2020-04-05 19:41:00 Grant Cheema [facility] MAGNESIUM 2020-04-05 09:44:00 Becky [facility] BASIC METABOLIC PANEL (NA, 2020-04-05 09:44:00 Becky [facility] K, CL, CO2, GLUCOSE, BUN, [facility] CREATININE, CA) CBC WITH DIFF 2020-04-05 09:44:00 Becky [facility] MAGNESIUM 2020-04-04 10:09:00 [facility] METABOLIC PANEL (NA, 2020-04-04 10:09:00 Becky [facility] K, CL, CO2, GLUCOSE, BUN, Cathryn [facility] CREATININE, CA) CBC WITH DIFF 2020-04-04 10:09:00 Becky [facility] SURGICAL PATHOLOGY EXAM 2020-04-03 20:13:00 Mayela [facility] LAPAROSCOPIC COLECTOMY 2020-04-03 15:35:00 Mayela [facility] COLONOSCOPY 2020-04-03 15:35:00 [facility] COLECTOMY 2020-04-03 15:35:00 [facility] MAGNESIUM 2020-04-03 09:20:00 Becky [facility] BASIC METABOLIC PANEL (NA, 2020-04-03 09:20:00 Becky [facility] K, CL, CO2, GLUCOSE, BUN, [facility] CREATININE, CA) CBC WITH DIFF 2020-04-03 09:20:00 Becky [facility] HB ABO GROUPING 2020-04-02 22:45:00 Hugo Alfaro [facility] MAGNESIUM 2020-04-02 10:22:00 [facility] BASIC METABOLIC PANEL (NA, 2020-04-02 10:22:00 Becky [facility] K, CL, CO2, GLUCOSE, BUN, Cathryn [facility] CREATININE, CA) CBC WITH DIFF 2020-04-02 10:22:00 Becky [facility] COVID-19 (ID NOW RAPID 2020-04-01 23:02:00 Rosaura Pena [facility] TESTING) [facility] URINALYSIS 2020-03-31 11:25:00 Alex Lopez [facility] CT ABDOMEN PELVIS W 2020-03-31 00:17:06 Alex Lopez [facility] CONTRAST [facility] XR CHEST 1 VW 2020-03-30 22:43:49 Colette [facility] EKG-12 LEAD 2020-03-30 22:14:24 [facility] PROTHROMBIN TIME / INR 2020-03-30 22:05:00 Alex Lopez [facility] ACTIVATED PARTIAL THRMPLAS 2020-03-30 22:05:00 Alex Lopez [facility] SELENA [facility] N-TERMINAL PRO-BNP 2020-03-30 22:05:00 Alex Lopez [facility] LIPASE 2020-03-30 22:05:00 Colette Nmgeri [facility] TROPONIN I 2020-03-30 22:05:00 Colette [facility] HEPATIC FUNCTION PANEL 2020-03-30 22:05:00 Alex Lopez [facility] ([id number]) ([facility] T,BU/BC,ALT,AST,ALK PHOS) BASIC METABOLIC PANEL (NA, 2020-03-30 22:05:00 Alex Lopez [facility] K, CL, CO2, GLUCOSE, BUN, Medica l Branch CREATININE, CA) CBC WITH DIFF 2020-03-30 22:05:00 Alex Lopez [facility] EKG-12 LEAD 2020-03-30 22:01:44 Alex Lopez [facility] HOSPITAL ADMISSION 2020-03-30 05:01:00 Doctor Unassigned, [facility] MAGNESIUM 2020-03-26 09:57:00 [facility]in [facility] BASIC METABOLIC PANEL (NA, 2020-03-26 09:57:00 Simin [facility] K, CL, CO2, GLUCOSE, BUN, Medica l Branch CREATININE, CA) CBC WITH DIFF 2020-03-26 09:57:00 [facility] LACTIC ACID WHOLE BLOOD 2020-03-26 04:09:00 Sarah Duval [facility] COVID-19 (ID NOW RAPID 2020-03-26 02:01:00 Bernardo Donnelly [facility] TESTING) Medical Withams CT ABDOMEN PELVIS W 2020-03-26 01:17:[address] [facility] CONTRAST [facility] PHOSPHORUS 2020-03-26 00:39:00 [facility]in [facility] MAGNESIUM 2020-03-26 00:39:00 [facility]in [facility] HEPATIC FUNCTION PANEL 2020-03-26 00:39:00 Bernardo Donnelly [facility] ([id number]) (ALB,T.PRO,BILI Medical Withams T,BU/BC,ALT,AST,ALK PHOS) BASIC METABOLIC PANEL (NA, 2020-03-26 00:39:00 Bernardo Donnelly [facility] K, CL, CO2, GLUCOSE, BUN, Medica l Branch CREATININE, CA) CBC WITH DIFF 2020-03-26 00:39:00 Bernardo Donnelly [facility] EXTRA TUBE LT. BLUE 2020-03-26 00:39:00 Andrzej [facility] HOSPITAL ADMISSION 2020-03-25 05:01:00 Doctor Unassigned, [facility] [place] [facility] PROTHROMBIN TIME / INR 2020-03-03 04:27:00 rOi Persaud [facility] ACTIVATED PARTIAL THRMPLAS 2020-03-03 04:27:[address] [facility] XR ABDOMEN ACUTE SERIES 2020-03-03 02:15:00 Sabi [facility] PHOSPHORUS 2020-03-03 01:22:00 Ori Persaud [facility] MAGNESIUM 2020-03-03 01:22:00 Ori Persaud [facility] HEPATIC FUNCTION PANEL 2020-03-03 01:22:00 Sabi Begum [facility] ([id number]) (ALB,T.PRO,BILI Medical Branch T,BU/BC,ALT,AST,ALK PHOS) BASIC METABOLIC PANEL (NA, 2020-03-03 01:22:00 Sabi Begum [facility] K, CL, CO2, GLUCOSE, BUN, Medica l Branch CREATININE, CA) CBC WITH DIFFERENTIAL 2020-03-03 01:22:00 Sabi Begum [facility] URINALYSIS 2020-03-03 01:22:00 Shy [facility] LACTIC ACID WHOLE BLOOD 2020-03-03 01:22:00 Shy [facility] COVID-19 (ID NOW RAPID 2020-03-03 01:22:00 Sabi Begum [facility] TESTING) Medical Branch GALV/CLC ONLY - URINE DRUG 2020-02-27 20:02:00 Shana [facility] (IMMUNOASSAY) - [facility] COMPREHENSIVE DRUG SCREEN FREE T4 2020-02-27 17:48:00 [facility] THYROID STIMULATING 2020-02-27 17:48:[facility] FREE T3 2020-02-27 17:48:[address] [facility] [address] ABDOMEN PELVIS W 2020-02-26 18:27:28 Alondra Fay [facility] CONTRAST Anahi [facility] COVID-19 (ID NOW RAPID 2020-02-26 06:41:00 Shy [facility] TESTING) Medical Branch XR ABDOMEN ACUTE SERIES 2020-02-26 04:48:30 Shy [facility] LIPASE 2020-02-26 03:35:00 Shy [facility] HEPATIC FUNCTION PANEL 2020-02-26 03:35:00 Shy [facility] ([id number]) (ALB,T.PRO,BILI [facility] T,BU/BC,ALT,AST,ALK PHOS) BASIC METABOLIC PANEL (NA, 2020-02-26 03:35:00 Sabi Begum [facility] K, CL, CO2, GLUCOSE, BUN, Medica l Branch CREATININE, CA) CBC WITH DIFFERENTIAL 2020-02-26 03:35:00 Sabi Begum [facility] LACTIC ACID WHOLE BLOOD 2020-02-26 03:35:00 Shy [facility] EXTRA TUBE LT. BLUE 2020-02-26 03:35:00 Sabi Begum [facility] MAGNESIUM 2020-02-03 16:38:00 [facility] BASIC METABOLIC PANEL (NA, 2020-02-03 16:38:00 Simin, [facility] K, CL, CO2, GLUCOSE, BUN, Medica l Branch CREATININE, CA) XR KUB 2020-01-31 16:59:00 [facility] BASIC METABOLIC PANEL (NA, 2020-01-31 06:15:00 Kirill Henson [facility] K, CL, CO2, GLUCOSE, BUN, Medica l Branch CREATININE, CA) CBC WITH DIFFERENTIAL 2020-01-31 06:15:00 Kirill Henson [facility] BASIC METABOLIC PANEL (NA, 2020-01-29 10:06:00 [facility], CL, CO2, GLUCOSE, BUN, Medica l Branch CREATININE, CA) CBC WITH DIFFERENTIAL 2020-01-29 10:06:00 Nataly [facility] COVID-19 (PCR MOLECULAR 2020-01-29 03:56:00 Liz [facility] TESTING) [facility] LACTIC ACID WHOLE BLOOD 2020-01-29 03:55:00 Bernardo [facility]nelly [facility] EXTRA TUBE LAV 2020-01-29 03:55:00 Liz [facility] EXTRA TUBE LT. BLUE 2020-01-29 03:55:00 Liz [facility] EXTRA TUBE LT. GREEN 2020-01-29 03:55:00 [place] [facility] URINALYSIS 2020-01-29 01:35:00 Silvia Jurado I [facility] COVID-19 (ID NOW RAPID 2020-01-29 01:32:00 Bernardo Donnelly [facility] TESTING) [facility] CT ABDOMEN PELVIS W 2020-01-28 23:53:23 Silvia Jurado I [facility] CONTRAST [facility] Branch LIPASE 2020-01-28 23:19:00 Silvia Jurado I [facility] HEPATIC FUNCTION PANEL 2020-01-28 23:19:00 [facility] ([id number] (ALB,T.PRO,[facility] Medical Withams T,BU/BC,ALT,AST,ALK PHOS) BASIC METABOLIC PANEL (NA, 2020-01-28 23:19:00 Sondra Jurado [facility] K, CL, CO2, GLUCOSE, BUN, Medica l Branch CREATININE, CA) CBC WITH DIFFERENTIAL 2020-01-28 23:19:00 Jurado [facility] HOSPITAL ADMISSION 2020-01-28 05:01:00 Doctor Unassigned, [facility] [place] [facility] BASIC METABOLIC PANEL (NA, 2020-01-26 18:06:00 [facility], CL, CO2, GLUCOSE, BUN, Medica l Branch CREATININE, CA) MAGNESIUM 2020-01-26 08:17:00 Liz [facility] XR KUB 2020-01-26 06:00:00 Sindhu, [facility] PHOSPHORUS 2020-01-25 09:43:00 Liz [facility] COVID-19 (ID NOW RAPID 2020-01-25 04:31:00 Shy [facility] TESTING) [facility] LACTIC ACID WHOLE BLOOD 2020-01-25 04:27:00 Shy [facility] [facility] ABDOMEN PELVIS W 2020-01-25 02:15:22 Syh [facility] CONTRAST [facility] URINALYSIS 2020-01-25 01:05:00 Shy [facility] LIPASE 2020-01-25 00:42:00 Shy [facility] HEPATIC FUNCTION PANEL 2020-01-25 00:42:00 Shy [facility] ([id number]) (ALB,T.PRO,[facility] T,BU/BC,ALT,AST,ALK PHOS) BASIC METABOLIC PANEL (NA, 2020-01-25 00:42:00 Shy [facility] K, CL, CO2, GLUCOSE, BUN, Medica l [place] CREATININE, CA) CBC WITH DIFFERENTIAL 2020-01-25 00:42:00 Shy [facility] [id number] 2020-01-09 00:00:00 [facility] EXTERNAL PROVIDER RECORDS 2019-12-28 05:01:00 Doctor Unassigned, [facility] [place] [facility] Plan of Care Planned Activity Planned Date Details Comments Source Future Scheduled 2029-03-23 Screening for malignant [facility] Test 00:00:00 neoplasm of colon Medical Ce nter (procedure) [code = 514423377] Future Scheduled 2029-03-23 Screening for malignant [facility] Test 00:00:00 neoplasm of colon Medical Ce nter (procedure) [code = 433923635] Future Scheduled 2029-03-23 Screening for malignant [facility] Test 00:00:00 neoplasm of colon Medical Ce nter (procedure) [code = 327390738] Future Scheduled 2029-03-23 Screening for malignant [facility] Test 00:00:00 neoplasm of colon Medical Ce nter (procedure) [code = 586654487] Future Scheduled 2029-03-23 Screening for malignant [facility] Test 00:00:00 neoplasm of colon Medical Ce nter (procedure) [code = 437261844] Future Scheduled 2022-05-24 IMM Influenza Seasonal [facility] 00:00:00 (>/= 19 yrs) [code = IMM Influenza Seasonal (>/= 19 yrs)] Future Scheduled 2022-05-24 IMM Influenza Seasonal [facility] 00:00:00 (>/= 19 yrs) [code = IMM Influenza Seasonal (>/= 19 yrs)] Future Scheduled 2022-04-24 INFLUENZA VACCINE (#1) [facility]00 [code = INFLUENZA Medical Ce nter VACCINE (#1)] Future Scheduled 2022-04-24 INFLUENZA VACCINE (#1) [facility] 00:00:00 [code = INFLUENZA Medical Ce nter VACCINE (#1)] Future Scheduled 2021-08-[address] [facility] 00:00:00 (12+) [code = Medical Center DEPRESSION SCREENING (12+)] Future Scheduled 2021-08-[address] [facility] 00:00:00 neoplasm of colon (procedure) [code = 105396862] Future Scheduled 2020-02-14 Screening for malignant [facility] 00:00:00 neoplasm of colon (procedure) [code = 027590743] Future Scheduled 2020-02-14 SHINGLES VACCINES ([address] [facility] 00:00:00 2) [code = SHINGLES Medical Center VACCINES (1 of 2)] Future Scheduled 2005 Lipid panel (procedure) [facility] Test 00:00:00 [code = 91919940] Medical Ce nter Future Scheduled 2005 Lipid panel (procedure) [facility] Test 00:00:00 [code = 61979454] Medical Ce nter Future Scheduled 2005 Lipid panel (procedure) [facility] Test 00:00:00 [code = 17635856] Medical Ce nter Future Scheduled 1989 DTAP/TDAP/TD VACCINES [facility] 00:00:00 (1 - Tdap) [code = Medical C enter DTAP/TDAP/TD VACCINES (1 - Tdap)] Future Scheduled 1989 DTAP/TDAP/TD VACCINES [facility] 00:00:00 (1 - Tdap) [code = Medical C enter DTAP/TDAP/TD VACCINES (1 - Tdap)] Future Scheduled 1988-02-14 HEPATITIS C [facility]CRE[facility]ING [facility] 00:00:00 [code = HEPATITIS C Medical Center SCREENING] Future Scheduled 1988-02-14 HEPATITIS C [facility] 00:00:00 [code = HEPATITIS C Medical Center SCREENING] Future Scheduled 1970 COVID-19 VACCINE (#1) [facility] 00:00:00 [code = COVID-[address] VACCINE (#1)] Future Scheduled 1970 COVID-19 Vaccine (#1) [facility] 00:00:00 [code = COVID-19 Vaccine (#1)] Future Scheduled 1970 COVID-19 Vaccine (#1) [facility] 00:00:00 [code = COVID-19 Vaccine (#1)] Future Scheduled 1970 COVID-19 VACCINE (#1) [facility] 00:00:00 [code = COVID-[address] VACCINE (#1)] Future Scheduled 1970 CT Colonography (combo) [facility] 00:00:00 [code = CT Colonography [facility]i [facility] Center (combo)] Future Scheduled 1970 Screening for malignant [facility] Test 00:00:00 neoplasm of colon Medical Ce nter (procedure) [code = 892879515] Future Scheduled 1970 Screening for malignant [facility] Test 00:00:00 neoplasm of colon Medical Ce nter (procedure) [code = 469703666] Future Scheduled 1970 Sigmoidoscopy [code = [facility] S[facility]oscopy] Medical Cente r Future Scheduled 1970 Fluoride Varnish [code [facility] 00:00:00 = Fluoride Varnish] Future Scheduled 1970 Fluoride Varnish [code [facility] 00:00:00 = Fluoride Varnish] Future Scheduled 1970 CT Colonography (combo) [facility] 00:00:00 [code = CT Colonography Medi mariusz Center (combo)] Future Scheduled 1970 Screening for malignant [facility] Test 00:00:00 neoplasm of colon Medical Ce nter (procedure) [code = 150695410] Future Scheduled 1970 Screening for malignant [facility] Test 00:00:00 neoplasm of colon Medical Ce nter (procedure) [code = 824735917] Future Scheduled 1970 Sigmoidoscopy [facility]code = [facility] Sigmoidoscopy] Medical Cente r Encounters Start End Encounter Admission Attending Care Care Encounter Source Date/Time Date/Time Type Type Clinicians Facility Department ID 2021-09-13 Inpatient EM Raffaele Levi HCACL HCACL [id number] [facility] 14:59:00 06 [facility] 2021-06-25 Emergency [facility] [id number] Univers 05:25:12 ity of [facility] 2021-06-25 Emergency [facility] [id number] Univers 01:41:18 ity of [facility] 2021-06-24 Emergency [facility] [id number] Univers 22:38:17 ity of [facility] 2021-06-22 Emergency [facility] [id number] Univers 21:40:44 ity of [facility] 2021-06-22 Emergency [facility] [id number] Univers 13:55:03 ity of [facility] 2021-06-22 Emergency [facility] [id number] Univers 05:54:16 ity of [facility] 2021-06-21 Emergency [facility] [id number] Univers 22:33:24 ity of [facility] 2021-06-21 Emergency [facility] [id number] Univers 22:33:24 ity of [facility] 2021-06-21 Emergency [facility] [id number] Univers 22:22:08 ity of [facility] 2021-06-21 Emergency [facility] [id number] Univers 20:04:56 ity of [facility] 2021-06-21 Emergency [facility] [id number] Univers 19:53:56 ity of [facility] 2021-06-21 Emergency [facility] [id number] Univers 19:37:27 ity of [facility] 2021-06-21 Emergency [facility] [id number] Univers 19:36:41 ity of [facility] 2021-06-21 Emergency [facility] [id number] Univers 17:11:26 ity of [facility] 2021-06-21 Emergency [facility] [id number] Univers 16:44:38 ity of [facility] 2021-06-21 Emergency [facility] [id number] Univers 11:19:16 ity of [facility] 2021-06-21 Emergency [facility] [id number] Univers 10:16:06 ity of [facility] 2021-06-21 Emergency [facility] [id number] Univers 06:08:42 ity of [facility] 2021-06-21 Emergency [facility] [id number] Univers 04:43:23 ity of [facility] 2021-06-21 Emergency [facility] [id number] Univers 04:42:49 ity of [facility] 2021-06-20 Emergency X YURIY, [facility] PAKO [id number] Univers 18:31:02 OSMAR ity of [facility] 2020-02-23 Inpatient HCAPM LENNY [id number] [facility] 18:42:00 [id number] [facility] 2020-02-17 Inpatient EM Avtar, HCAPM MAS [id number] [facility] 00:22:00 Oladipo 82490 [facility] 2020-02-16 Inpatient HCAPM LENNY [id number] [facility] 23:50:00 99540 [facility] 2020-01-05 Inpatient UR Perea, HCAPM MEDI.01 [id number] [facility] 20:23:00 Mark 48193 [facility] 2019-12-13 Inpatient HCAMN JULIA [id number] [facility] 17:52:00 [id number] [facility] 2022-04-14 2022-04-14 Transition MELANIE Valdes 1.2.840.114 [id number] Univers 00:00:00 00:00:00 of Care Miryam RECINOS 350.1.13.10 it y of [place] 4.2.7.2.686 [facility] [id number] [facility] [address] [place] 2022-04-09 2022-04-10 Emergency X [facility] ERT [id number] Univers 20:38:00 00:14:00 ALVAREZ ity of [facility] 2022-04-09 2022-04-10 Emergency [facility] 1.2.840.114 [id number] Univers 20:38:00 00:14:00 Alvarez OROPEZA 350.1.13.10 ity of [place] 4.2.7.2.686 [facility] [id number] [facility] 084 [place] 2022-04-09 2022-04-09 Transition MELANIE Valdes 1.2.840.114 [id number] Univers 00:00:00 00:00:00 of Care Miryam RECINOS 350.1.13.10 it y of [place] 4.2.7.2.686 Ara lopez [id number] [facility] [address] 2022-04-02 2022-04-08 Inpatient X [facility] URI [id number] Univers 11:42:00 12:30:00 rai LORA [facility] 2022-04-02 2022-04-08 Hospital Rekha Sheehan [facility] 1.2.840.11 [id number] Univers 11:42:00 12:30:00 Encounter WilliamJuventino [facility] 350.1.13.10 ity of [place] Lora 4.2.7.2.686 [place] [id number] ([facility]) 2022-03-29 2022-03-29 Emergency EM Bridgett, HCACL AERS [id number] [facility] 14:26:00 16:45:00 Sabi 28 [facility] 2022-03-29 2022-03-29 Emergency EM Bridgett HCACL HCACL [id number] [facility] 14:26:00 16:45:00 Sabi [id number] [facility] 2022-03-25 2022-03-26 Inpatient E [facility]AN [facility] MED [id number] [facility]BL 13:38:00 10:16:00 , YESSI 2022-03-15 2022-03-18 Emergency E RADHA [facility] MED [id number] [facility] 13:36:00 18:59:00 JULIO 2022-03-13 2022-03-13 Emergency [facility] [id number] Lynne 15:33:00 20:25:00 [facility] 2022-03-13 2022-03-13 Emergency [facility] [id number] Lynne 15:33:00 20:25:00 [facility] 2022-03-13 2022-03-13 Outpatient RONALD, [facility] [id number] Maged 00:00:00 00:00:00 [facility] 2022-03-06 2022-03-09 [facility] JonnaAryan meneses [facility] 1 [id number] [facility]3] 12:16:00 12:55:00 Encounter Norma Montalvo Fang-Ying M edical Heinen, Pao P. [facility] Leonidas Bain Colin 2022-03-06 2022-03-09 Inpatient ER LEONIDAS [facility] Emergency 20 [id number] SLE 12:16:00 12:55:00 2022-03-06 2022-03-09 Hospital ER Aryan Tello [facility] [id number] 12:16:00 12:55:00 Encounter Norma Montalvo Fang-Ying M edical [facility] Bain Colin 2022-03-06 2022-03-06 Outpatient [facility] [id number] [facility] 00:00:00 23:59:00 Lorna Medicin e 2022-03-06 2022-03-06 Orders [facility] [id number] 00:00:00 00:00:00 Only [facility] 2022-03-06 2022-03-[address] [facility] [id number] [facility] 00:[facility] 00:00:00 [facility] 2022-03-06 2022-03-06 Orders [facility] [id number] 00:00:00 00:00:00 Only [facility] 2022-03-06 2022-03-[address] [facility] [id number] [facility] 00:[facility] 00:00:00 [facility] 2022-02-18 2022-02-20 Emergency Mitzi Carbajal [facility] [id number] Lynne 13:58:00 11:55:00 Alona Calvert Ashish D Cavazos, Roberto H 2022-02-18 2022-02-20 Emergency Mitzi Carbajal [facility] [id number] Lynne 13:58:00 11:55:00 Alona Calvert Ashish D Cavazos, Roberto H 2022-02-18 2022-02-18 [facility] [id number] [place] 15:19:05 15:23:18 [facility] 2022-02-18 2022-02-18 Outpatient 1 TEJAS, [facility] [id number] [place] 13:58:00 13:58:00 [facility] 2022-02-18 2022-02-18 Outpatient DENIZ [facility] [id number] [place] 00:00:00 00:00:00 , OSCAR Daniels 2022-02-07 2022-02-11 [facility] [id number] [place] 13:40:00 13:22:00 Encounter Antonieta [facility] 2022-02-07 2022-02-11 [facility] [id number] [place] 13:40:00 13:22:00 Encounter Antonieta [facility] 2022-02-07 2022-02-07 Outpatient 1 DAILY ISLAS [facility] [id number] [place] 13:40:00 13:40:00 [facility] 2022-01-30 2022-01-30 Emergency [facility] [id number] [facility] 17:02:00 18:29:[address] [facility] 2022-01-30 2022-01-30 [id number] [facility] 17:02:00 18:29:[id number] [facility] 2022-01-22 2022-01-22 Emergency [facility] [id number] [place] 17:24:00 20:39:00 [facility] 2022-01-22 2022-01-22 Emergency [facility] [id number] [place] 17:24:00 20:39:00 [facility] 2022-01-16 2022-01-21 Emergency Raymon Martin [facility] [id number] Maged 11:04:00 18:08:00 Karin Bassett Julian C Agrawal, Parth P 2022-01-16 2022-01-21 Emergency Raymon Martin [facility] [id number] Maged 11:04:00 18:08:00 Karin Bassett Julian C Agrawal, Parth P 2022-01-19 2022-01-19 Outpatient [facility] [id number] [place] 12:34:08 13:29:31 Health 2022-01-16 2022-01-16 Outpatient [facility] [id number] [place] 19:42:28 20:01:28 Health 2022-01-16 2022-01-16 Outpatient 1 DANYELLE, [facility] [id number] [place] 11:04:00 11:04:00 KARIN Khannacarmen 2022-01-10 2022-01-11 [facility] [id number] [place] 10:58:00 11:20:00 [facility]Helene lucio [facility] 2022-01-10 2022-01-11 [facility] [id number] [place] 10:58:00 11:20:00 JustinHelene lucio [facility], Merissa Q 2022-01-10 2022-01-10 [facility] [id number] [place] 10:58:00 10:58:00 [facility] 2022-01-08 2022-01-09 Emergency [facility] [id number] [place] 17:57:00 02:50:00 [facility] 2022-01-08 2022-01-09 Emergency [facility] [id number] [place] 17:57:00 02:50:00 [facility] 2022-01-08 2022-01-08 Emergency [facility] [id number] [place] 21:40:34 21:50:19 [facility] 2021-09-23 2021-09-23 Emergency EM Raffaele Levi [facility] AERS [id number] [facility] 19:35:00 21:10:00 [facility] 2021-09-13 2021-09-13 Emergency X RACHEL, DESONAM ERT [id number] Univers 21:20:00 22:36:00 MICKEY atwood of [facility] 2021-09-13 2021-09-13 Emergency Rachel, ROSHAN [id number] Univers 21:20:00 22:36:00 [facility] 350.1.13.10 it [facility] 4.2.7.2.686 [facility] [id number] [address] ([facility]) 2021-09-13 2021-09-13 Emergency EM Raffaele Levi HCACL AERS [id number] [facility] 14:57:00 16:37:00 [facility] 2021-09-12 2021-09-12 Emergency X VERNON, [facility] ERT [id number] Univers 14:25:00 17:51:00 DWAIN ithiram [facility] 2021-09-12 2021-09-12 Emergency Morrical, TRAUMA 1.2.840.114 [id number] Univers 14:25:00 17:51:00 Dwain [facility] 350.1.13.10 [id number] [address] 2021-09-12 2021-09-12 Emergency [facility] ERT [id number] Univers 06:20:00 10:10:00 CONSTANTIN dawnFormerly [facility] 2021-09-12 2021-09-12 Emergency Alona Carty TRAUMA 1.2.840 .114 [id number] Univers 06:20:00 10:10:00 Constantin Concepcion [place] 350.1.13.10 [id number] [address] 2021-09-08 2021-09-09 Emergency X YINA, [facility] ERT [id number] Univers 23:01:00 01:30:00 SEBASTIAN atwood [facility] 2021-09-08 2021-09-09 Emergency Pacheco, TRAUMA [id number] Univers 23:01:00 01:30:00 Sebastian [facility] 350.1.13.10 [id number] [address] 2021-09-07 2021-09-07 Emergency [facility] ERT [id number] Univers 19:24:00 23:44:00 SEBASTIAN ithiram [facility] 2021-09-07 2021-09-07 Emergency Pacheco, TRAUMA [id number] Univers 19:24:00 23:44:00 Sebastian [facility] 350.1.13.10 [place] [id number] [facility] 014 Branch 2021-09-06 2021-09-06 Emergency X YINA, [facility] ERT [id number] Univers 15:35:00 17:52:00 SEBASTIAN ity of [facility] 2021-09-06 2021-09-06 Emergency Pacheco, TRAUMA 1.2.103.019 [id number] Univers 15:35:00 17:52:00 Sebastian [facility] 350.1.13.10 [place] [id number] [facility] 014 Branch 2021-09-06 2021-09-06 Transition MELANIE Vallejo 1.2.840.114 [id number] Univers 00:00:00 00:00:00 of Care Emililaurel RECINOS 350.1.13.10 [place] [id number] [facility] 403 [address] 2021-08-30 2021-09-05 Inpatient X [facility], [facility] PAKO [id number] Univers 16:53:00 16:00:00 ity of [facility] 2021-08-30 2021-09-05 [facility] Gayatri Gu 1 .2.840.114 [id number] Univers 16:53:00 16:00:00 Encounter Sophia Andrea MAGGY 350.1 .13.10 ity of [facility] 4.2.7.2.686 [facility] [id number] Medical 097 Branch 2021-09-03 2021-09-03 Surgery [facility] ABILIO 1.2.840.114 [id number] Univers 07:15:00 10:04:00 MAGGY 350.1.13.10 it y of [facility] 4.2.7.2.686 Javi as [id number] [facility] 103 [address] 2021-08-29 2021-08-29 Emergency X GEOVANNA [facility] ERT [id number] Univers 17:15:00 20:03:00 FOLUSHO ity of [facility] 2021-08-29 2021-08-29 Emergency Ibikunle, TRAUMA 1.2.840.114 [id number] Univers 17:15:00 20:03:00 [facility] 350.1.13.10 [place] [id number] [facility] 014 Branch 2021-07-29 2021-08-05 Inpatient [facility] PAKO [id number] Univers 20:15:00 07:43:00 ity of [facility] 2021-07-29 2021-08-05 [facility] Jonah Rees 1.2.840.1 [id number] Univers 20:15:00 07:43:00 Encounter Karin Myers 350.1.13.1 0 ity of [facility] 4.2.7.2.686 [place] [id number] [facility] 091 Branch 2021-07-29 2021-07-29 Transition MELANIE Vallejo 1.2.840.114 [id number] Univers 00:00:00 00:00:00 of Care Emili RECINOS 350.1.13.10 [place] [id number] [facility] 403 [address] 2021-07-27 2021-07-27 Emergency EM Koussayer, HCAMN JULIA [id number] [facility] 10:15:00 12:36:00 Tarek [id number] [facility] 2021-07-27 2021-07-27 Emergency EM Koussayer, HCAMN HCAMN [id number] [facility] 10:15:00 12:36:00 Tarek 17 [facility] 2021-07-23 2021-07-26 Inpatient X [facility] PAKO [id number] Univers 00:39:00 14:50:00 ity of [facility] 2021-07-23 2021-07-26 [facility] Sabi Schultz 1.2.840 .114 [id number] Univers 00:39:00 14:50:00 Encounter Bia Pedro 350.1.13.10 ity of HOSPITAL 4.2.7.2.686 Javi as [id number] [facility] 093 Branch 2021-07-22 2021-07-22 Emergency EM Marcelina, HCACL AERS [id number] [facility] 04:25:00 08:20:00 Gabriella [id number] [facility] 2021-06-27 2021-06-27 Emergency EM White, HCACL AERS [id number] [facility] 15:31:00 17:37:00 Sabi [id number] [facility] 2021-06-25 2021-06-25 Orders Doctor BERNARDO 1.2.840.114 [id number] Univers 00:00:00 00:00:00 Only Unassigned, MAGGY 350.1.13.10 ity of [place] [facility] 4.2.7.2.686 Javi as [id number] [facility] 009 Branch 2021-05-31 2021-06-04 Emergency Willie Garrett [facility] 1.2.840.1 [id number] Univers 17:10:00 16:38:00 RavinderClementine macario Health 350.1.13.10 ity of Sabi Gann 4.2.7.2.686 [place] Tamika Lyle Bhatt [phone] [address] ([facility]) 2021-05-20 2021-05-21 Emergency Bernardo Donnelly [facility] 1.2.840.114 [id number] Univers 14:29:00 17:10:00 NaylorScott silva Health 350.1.13.10 [place] [phone] [facility] [address] ([facility]) 2021-05-10 2021-05-10 Transition Melanie Vallejo 1.2.840.114 [id number] Univers 00:00:00 00:00:00 of Care Emili Recinos 350.1.13.10 ity of [place] [id number] [facility] 403 [address] 2021-05-07 2021-05-09 Hospital Alona Pérez [facility] 1.2.840.11 [id number] Univers 19:23:00 15:26:00 Encounter Diogo [facility] 350.1.13. 10 ity of [place] 4.2.7.2.686 [facility] [id number] [facility] [address] ([facility]) 2021-04-28 2021-05-01 Inpatient [facility] [id number] [facility] 21:05:00 14:18:00 Macrello 73023 [facility] 2020-09-26 2020-09-26 Emergency Jose, [facility] 1.2.087.414 [id number] Univers 16:56:00 23:00:00 Mariaelena Oropeza 350.1.13.10 i ty of [place] 4[place].7.2.686 [place] [facility] [id number] [facility] 084 Branch 2020-08-22 2020-08-24 Emergency Funmilayo Pinzon [facility] 1.2.8 40.114 [id number] Univers 15:31:00 14:20:00 SweeneyBart malik Health 350.1.13.10 ity of Ori [place] 4.2.7.2.686 [facility] [phone] [facility] [address] ([facility]) 2020-07-09 2020-07-09 Emergency Henna [facility] 1.2.840.114 [id number] Univers 16:23:00 19:43:00 , Juan M [facility] 350.1.13.10 [place] [phone] [facility] 014 Branch ([facility]) 2020-06-15 2020-06-15 Patient RexSaira Melanie 1.2.840.114 [id number] Univers 00:00:00 00:00:00 Outreach E Recinos [id number] i [place]2.[place] [phone] [facility] [address] 2020-06-12 2020-06-12 Patient Saira Goodman Melanie 1.2.840.114 [id number] Univers 00:00:00 00:00:00 Outreach E Recinos [id number] i [place] [id number] [address] 2020-06-08 2020-06-08 Patient Melanie Emanuel 1.2.840.114 [id number] Univers 00:00:00 00:00:00 Outreach Mela Arvizu Recinos [id number] [place] [id number] [address] 2020-06-07 2020-06-07 Patient Saira Goodman 1.2.840.114 [id number] Univers 00:00:00 00:00:00 Outreach E Recinos 350.1.13.10 [place] [phone] [address] 2020-06-05 2020-06-05 Emergency [facility] 1.2.840.114 [id number] Univers 06:47:00 10:55:00 More Oropeza 350.1.13.10 it[place] [phone] [facility] [address] 2020-06-04 2020-06-04 Emergency [facility] 1.2.826.933 [id number] Univers 10:36:00 13:38:00 [facility] 350.1.13.10 [place] [phone] [facility] [address] ([facility]) 2020-06-04 2020-06-04 Patient Saira Goodman 1.2.840.114 [id number] Univers 00:00:00 00:00:00 Outreach E Recinos 350.1.13.10 [place] [phone] [address] 2020-06-04 2020-06-04 Patient Melanie Emanuel 1.2.840.114 [id number] Univers 00:00:00 00:00:00 Outreach Mela Arvizu Recinos 350.1.13.10 [place] [phone] [address] 2020-06-01 2020-06-01 Transition Melanie Vallejo 1.2.840.114 [id number] Univers 00:00:00 00:00:00 of Care Emili Jjy 350.1.13.10 [place] [id number] [address] 2020-05-22 2020-05-31 Hospital Alex Lpoez 1.2.840.11 4 [id number] Univers 14:42:00 18:40:00 Encounter Bia Pedro Maggy 350.1.13.10 ity of Hospital 4.2.7.2.686 Javi as [phone] [address] 2020-05-31 2020-05-31 Patient Saira Goodman 1.2.840.114 [id number] Univers 00:00:00 00:00:00 Outreach E Recinos 350.1.13.10 [place] [phone] [address] 2020-05-23 2020-05-23 Outpatient R [facility] [id number] -[id number] Univers 10:00:00 10:00:00 [id number] ity of [facility] 2020-05-23 2020-05-23 Patient Saira Goodman 1.2.840.114 78 [id number] Univers 00:00:00 00:00:00 Outreach E Recinos 350.1.13.10 [place] [phone] [address] 2020-05-23 2020-05-23 Patient Saira Goodman 1.2.840.114 78 [id number] Univers 00:00:00 00:00:00 Outreach E Recinos 350.1.13.10 [place] [phone] [address] 2020-05-23 2020-05-23 Patient JenaeAsia montanaeddie 1.2.840.114 [id number] Univers 00:00:00 00:00:00 Outreach Mela Jjy 350.1.13.10 [place] [phone] [address] 2020-05-21 2020-05-21 Emergency Donnelly, [facility] 1.2.587.267 [id number] Univers 20:52:00 23:41:00 [facility] 350.1.13.10 it [place] [phone] [address] ([facility]) 2020-05-20 2020-05-20 Emergency Unknown, [place] 1.2.840.114 [id number] Univers 07:04:00 15:13:00 Attending CENTER 350.1.13.10 [place] [phone] [address] 2020-05-19 2020-05-20 Emergency [facility], [facility] 1.2.840.114 [id number] Univers 21:29:00 06:12:00 [facility] 350.1.13.10 [place] [phone] [address] ([facility]) 2020-05-18 2020-05-18 Patient Saira Goodman Melanie 1.2.840.114 [id number] Univers 10:18:59 11:28:59 Outreach Heidi Recinos 350.1.13.10 i [place] [phone] [address] 2020-05-18 2020-05-18 Outpatient R [facility] [id number] -[id number] Univers 09:30:00 09:30:00 [id number] ity of [facility] 2020-05-18 2020-05-18 Patient Melanie Emanuel 1.2.840.114 [id number] Univers 00:00:00 00:00:00 Outreach Mela Recinos 350.1.13.10 [place] [phone] [address] 2020-05-17 2020-05-17 Outpatient R [facility] [id number] -20 Univers 10:00:00 10:00:00 [id number] ity of [facility] 2020-05-17 2020-05-17 Patient Saira Goodmann 1.2.840.114 [id number] Univers 00:00:00 00:00:00 Outreach Heidi Recinos 350.1.13.10 [place] [phone] [address] 2020-05-17 2020-05-17 Patient Melanie Emanuel 1.2.840.114 [id number] Univers 00:00:00 00:00:00 Outreach Mela Arvizu Recinos 350.1.13.10 [place] [phone] [address] 2020-05-15 2020-05-15 Patient Melanie Emanuel 1.2.840.114 [id number] Univers 00:00:00 00:00:00 Outreach Mela Jjy 350.1.13.10 [place] [phone] [address] 2020-05-14 2020-05-14 Transition Melanie Vallejo 1.2.840.114 [id number] Univers 00:00:00 00:00:00 of Care Emili Recinos 350.1.13.10 [place] [phone] [address] 2020-05-04 2020-05-12 [facility] Lora Hall 1.2. 840.114 [id number] Univers 21:09:00 14:03:00 Encounter Carol Ann Jason 350.1.13.10 ity of [facility] 4.2.7.2.686 Javi [place] [phone] [address] 2020-05-10 2020-05-10 Patient Saira Goodman Melanie 1.2.840.114 78 [id number] Univers 00:00:00 00:00:00 Outreach E Recinos 350.1.13.10 [place] [phone] [address] 2020-05-09 2020-05-09 Transition Melanie Vallejo 1.2.840.114 [id number] [id number] Univers 00:00:00 00:00:00 of Care Emili Recinos 350.1.13.10 [place] [phone] [address] 2020-05-08 2020-05-08 Patient Saiar Goodman 1.2.840.114 [id number] Univers 00:00:00 00:00:00 Outreach E Recinos 350.1.13.10 [place] [phone] [address] 2020-05-02 2020-05-03 Emergency [facility] 1.2.991.345 [id number] Univers 23:37:00 01:53:00 Joel S Sunflower 350.1.13.10 ity of [place] [phone] [facility] [address] [place] 2020-05-03 2020-05-03 Patient Saira Goodman 1.2.840.114 78 [id number] Univers 00:00:00 00:00:00 Outreach E Recinos 350.1.13.10 [place] [phone] [address] 2020-05-03 2020-05-03 Transition Melanie Vallejo 1.2.840.114 [id number] Univers 00:00:00 00:00:00 of Care Emili Recinos 350.1.13.10 [place] [phone] [address] 2020-03-30 2020-05-02 Hospital Alex Lopez 1.2.840.11 4 [id number] Univers 16:55:00 16:45:00 Encounter Diogo Keane 350.1.13. 10 ity of [facility] 4.2.7.2.686 [place] [phone] [facility] [address] 2020-04-06 2020-04-06 Anesthesia Dana Sampson 1.2.8 40.114 [id number] Univers 09:10:00 11:29:00 Cynthia Herring 350.1.1 3.10 ity of Hospital 4.2.7.2.686 [place] [phone] [facility] [address] 2020-03-29 2020-03-29 Transition Melanie Vallejo 1.2.840.114 [id number] Univers 00:00:00 00:00:00 of Care Emili Recinos 350.1.13.10 it[place] of [place] [phone] [facility] [address] 2020-03-25 2020-03-28 [facility] Bernardo Donnelly [facility] 1.2.840.114 [id number] Univers 19:12:00 18:43:00 Encounter Simin [facility] 350.1.13.1 0 it[place] [phone] [facility] [address] ([facility]) 2020-03-07 2020-03-07 Transition Melanie Vallejo 1.2.840.114 [id number] Univers 00:00:00 00:00:00 of Care Emili Recinos 350.1.13.10 it[place] of [place] [phone] [facility] [address] 2020-03-02 2020-03-05 [facility] Sabi Begum [facility] 1.2.840.11 4 [id number] Univers 19:53:34 17:23:00 Encounter Eliu [facility] 350.1.13.10 ity of [place] 4.2.7.2.686 [place] [phone] [facility] [address] ([facility]) 2020-02-29 2020-02-29 Transition Melanie Vallejo 1.2.840.114 [id number] Univers 00:00:00 00:00:00 of Care Emili Recinos 350.1.13.10 it[place] of [place] [phone] [facility] [address] 2020-02-26 2020-02-27 [facility] Juventino Mccabe .2.840.11 4 [id number] Univers 04:55:41 19:20:00 Encounter Bia Pedro 350.1.13.10 ity of [facility] 4.2.7.2.686 [place]avi [place] [phone] [facility] [address] 2020-02-27 2020-02-27 Patient Saira Goodman 1.2.840.114 [id number] Univers 00:00:00 00:00:00 Outreach E Recinos 350.1.13.10 i ty [place] [phone] [facility] [address] 2020-02-25 2020-02-26 Emergency [facility], [facility] 1.2.479.821 [id number] Univers 21:25:58 03:55:00 [facility] 350.1.13.10 it y of [place] 4.2.7.2.[place] [phone] [facility] [address] ([facility]) 2020-02-24 2020-02-24 Outpatient Perea, HCACL LABO [id number] [facility] 07:51:00 07:51:00 Mark 88197 [facility] 2020-02-18 2020-02-18 Outpatient Avtar, HCACL LABO [id number] [facility] 00:26:00 00:26:00 Oladipo 36756 [facility] 2020-02-07 2020-02-07 Transition Melanie Vallejo 1.2.840.114 [id number] Univers 00:00:00 00:00:00 of Care Emili Recinos 350.1.13.10 it[place] of [place] [phone] [facility] [address] 2020-02-07 2020-02-07 Transition Melanie Vallejo 1.2.840.114 [id number] 00:00:00 00:00:00 of Care Emili Recinos 350.1.13.10 [place] [phone] [facility] 2020-01-28 2020-02-05 [id number] Univers 18:12:56 15:12:00 RADELISSAAM ity of [facility] 2020-01-28 2020-02-05 [facility] Bernardo Donnelly [facility] 1.2.840.114 [id number] Univers 18:12:56 15:12:00 Encounter [facility] 350.1.13.10 ity of [place] 4.2.7.2.686 [facility] [phone] [facility] [address] ([facility]) 2020-01-28 2020-02-05 [facility] Bernardo Donnelly [facility] 1.2.840.114 [id number] 18:12:56 15:12:00 Encounter [facility] 350.1.13.10 Simin Radheshyam [place] 4.2.7.2.686 [place] [phone] [place] [address] ([facility]) 2020-01-24 2020-01-26 [facility] 1.2.840.1 14 [id number] Univers 18:46:34 19:35:00 [facility] 350.1.13.10 ity of Felix [place] 4.2.7.2.686 [facility] [phone] [facility] [address] ([facility]) 2020-01-24 2020-01-26 Outpatient X SIMIN, [facility] [id number] Univers 18:46:34 19:35:00 RADHESHYAM ity of [facility] 2020-01-24 2020-01-26 Emergency BegumSabi simons [facility] 1.2.840.1 14 [id number] 18:46:34 19:35:00 [facility] 350.1.13.10 [place] 4.2.7.2.686 [place] [phone] [facility] 109 ([facility]) 2020-01-05 2020-01-05 Outpatient Eliazar, [facility] [id number] [facility] 23:52:00 23:52:00 [facility] [address] [facility] 2019-12-28 2019-12-28 Orders Doctor BERNARDO 1.2.840.114 [id number] Univers 00:00:00 00:00:00 Only Unassigned, MAGGY 350.1.13.10 ity of [place] [facility] 4.2.7.2.686 Javi as [phone] [place] [address] Branch 2019-12-28 2019-12-28 Orders Doctor BERNARDO 1.2.840.114 [id number] 00:00:00 00:00:00 Only Unassigned, MAGGY 350.1.13.10 [place] [facility] 4.2.7.2.686 [id number] 009 2019-12-12 2019-12-12 Emergency [place], [place] 1.2.139.327 [id number] Univers 21:02:30 23:20:00 [facility] 350.1.13.10 i ty of 4.2.7.2.686 [facility] [phone] [facility] mariusz [address] 2019-12-12 2019-12-12 Emergency [place], [place] 1.2.466.975 [id number] 21:02:30 23:20:00 [facility] 350.1.13.10 4.2.7.2.686 [id number] 014 2017-11-02 2017-11-02 Emergency E [facility] [id number] [address] 08:33:00 08:33:00 [facility] 2017-08-05 2017-08-05 Outpatient [facility] [id number] [place] 00:00:00 00:00:00 Health 2017-07-28 2017-07-28 Outpatient [facility] [id number] [place] 00:00:00 00:00:00 [facility] 2017-06-24 2017-06-24 Outpatient [facility] [id number] [place] 00:00:00 00:00:00 [facility] 2017-06-22 2017-06-22 Emergency [facility] [id number] [place] 21:37:29 21:37:29 Health 2017-06-22 2017-06-22 Emergency [facility] MED [id number] [place] 21:06:00 21:06:00 [facility] 2017-06-22 2017-06-22 Outpatient [facility] [id number] [place] 10:02:31 10:02:31 Health 2017-06-09 2017-06-09 Outpatient [facility] [id number] [place] 00:00:00 00:00:00 Health 2017-06-09 2017-06-09 Outpatient [facility] [id number] [place] 00:00:00 00:00:00 [facility] 2017-05-08 2017-05-08 Emergency [facility] MED [id number] [place] 01:04:44 01:04:44 [facility] 2017-05-05 2017-05-05 Emergency E [facility] MED [id number] [address] 08:11:00 08:11:00 [facility] 2017-04-15 2017-04-15 Emergency E [facility] MED [id number] [address] 09:53:00 09:53:00 [facility] 2017-04-14 2017-04-14 Outpatient [facility] [id number] [place] 13:31:02 13:31:02 Health Results Test [...] 31.6 g/dL 31.2-35 RDW-SD (test code = 31846-2) 56.7 fL 38.5-51.6 H RDW-CV (test code = 788-0) 17.4 % 12.1-15.4 H PLT (test code = 777-3) See_Comment [Au tomated message] The system which ge nerated this result transmit dain reference range: 150 - 32 8 10*3/?L. The reference range was not used to interpret th is result as normal/abnormal . MPV (test code = 38244-0) 9.5 fL 9.8-13 L NRBC/100 WBC (test code = See_Comment [ Automated message] The 9786945487) system which [employer] nerated this result transmit dain reference range: 0.0 - 10 .0 /100 WBCs. The reference r meredith was not used to interpr et this result as normal/abnor mal. NRBC x10^3 (test code = See_Comment [Au tomated message] The 2882236892) system which [employer] nerated this result transmit dain reference range: 10*3/?L. The reference range was not u sed to interpret this result as normal/abnormal . SEG % (test code = 53434-7) 56 % 33-76 LYMPH % (test code = 28 % 14-54 88744-8) MONO % (test code = 21441-7) 12 % 0-4 H EOS % (test code = 81315-7) 4 % 0-3 H ANC (test code = 753-4) 4.72 10*3/uL 1.99-6.95 PLT ESTIMATE (test code = Normal Normal 9317-9) Lab Interpretation (test Abnormal code = 82153-4) [facility]. METABOLIC PANEL (82701)2022-04-10 04:19:15 Test Item Value Reference Range Interpretation Comments NA (test code = 137 mmol/L 135-145 2283492098) K (test code = 4.6 mmol/L 3.5-5 3004401847) CL (test code = 108 mmol/L 98-108 5384441796) CO2 TOTAL (test code = 22 mmol/L 23-31 L 1565365144) AGAP (test code = 2-16 8756178092) BUN (test code = 16 mg/dL 7-23 6787624698) GLUCOSE (test code = 96 mg/dL 70-110 8758287582) CREATININE (test code = 1.35 mg/dL 0.6-1.25 H 4497538432) TOTAL BILI (test code = 0.4 mg/dL 0.1-1.3 5942796241) CALCIUM (test code = 9.1 mg/dL 8.6-10.6 7501822178) T PROTEIN (test code = 5.5 g/dL 6.3-8.2 L 6644739176) ALBUMIN (test code = 3.9 g/dL 3.5-5 1978637422) ALK PHOS (test code = 58 U/L 34-122 7119022005) ALTv (test code = 41 U/L 5-50 1742-6) AST(SGOT) (test code = 42 U/L 13-40 H 6168590640) eGFR (test code = mL/min/1.73m2 1686047129) GILBERTO (test code = GILBERTO) Association of [...] tests). Lab Interpretation Abnormal (test code = 08481-8) [facility] 03:33:31 Test Item Value Reference Range Interpretation Comments LIPASE (test code = 5505175643) 90 U/L 0-220 Lab Interpretation (test code = Normal 68119-2) [facility] 12:00:33 Test Item Value Reference Range Interpretation Comments MAGNESIUM (test code = 2444893580) 1.5 mg/dL 1.7-2.4 L Lab Interpretation (test code = Abnormal 94859-6) [facility] METABOLIC PANEL (NA, K, CL, CO2, GLUCOSE, BUN, CREATININE, CA)2022-04-08 11:12:32 Test Item Value Reference Range Interpretation Comments NA (test code = 136 mmol/L 135-145 3815881633) K (test code = 4.1 mmol/L 3.5-5 4570282118) CL (test code = 108 mmol/L 98-108 4852450884) CO2 TOTAL (test code = 25 mmol/L 23-31 5512309546) AGAP (test code = 2-16 3358193819) BUN (test code = 10 mg/dL 7-23 4951470977) GLUCOSE (test code = 82 mg/dL 70-110 5809813039) CREATININE (test code = 1.10 mg/dL 0.6-1.25 0652630439) CALCIUM (test code = 8.3 mg/dL 8.6-10.6 L 0954480817) eGFR (test code = mL/min/1.73m2 5382854834) GILBERTO (test code = GILBERTO) Association of [...] tests). Lab Interpretation Abnormal (test code = 79099-4) [facility]22-[facility]-16 11:12:32 Test Item Value Reference Range Interpretation Comments PHOSPHORUS (test code = 8703248342) 2.5 mg/dL 2.5-5 Lab Interpretation (test code = Normal 79489-2) [facility] [id number] 10:47:27 Test Item Value Reference Range Interpretation [...] (test code = 54.4 fL 38.5-51.6 H 20902-9) RDW-CV (test code = 16.9 % 12.1-15.4 H 788-0) PLT (test code = See_Comment [Automated 777-3) message] The sy stem which generated this result transmitted reference range : 150 - 328 10*3/ ?L. The reference r meredith was not used to interpret this result as normal/abnormal . MPV (test code = 9.7 fL 9.8-13 L 56907-7) NRBC/100 WBC (test See_Comment [Automat ed code = 7701197263) message] The system which generated this result transmitted reference range : 0.0 - 10.0 /100 WBCs. The refer ence range was not u sed to interpret th is result as normal/abnormal . NRBC x10^3 (test code See_Comment [Auto mated = 3581408917) message] The s ystem which generated this result transmitted reference range : 10*3/?L. The reference range was not used to interpret this result as normal/abnormal . GRAN MAT (NEUT) % 54.7 % (test code = 770-8) IMM GRAN % (test code 0.40 % = 8168371723) LYMPH % (test code = 33.8 % 736-9) MONO % (test code = 8.7 % 5905-5) EOS % (test code = 2.0 % 713-8) BASO % (test code = 0.4 % 706-2) GRAN MAT x10^3(ANC) 2.95 10*3/uL 1.99-6.95 (test code = 4697420279) IMM GRAN x10^3 (test 0-0.06 code = 7705365516) LYMPH x10^3 (test code 1.82 10*3/uL 1.09-3.23 = 731-0) MONO x10^3 (test code 0.47 10*3/uL 0.36-1.02 = 742-7) EOS x10^3 (test code = 0.11 10*3/uL 0.06-0.53 711-2) BASO x10^3 (test code 0.01-0.09 = 704-7) Lab Interpretation Abnormal (test code = 81563-3) [facility] METABOLIC PANEL (NA, K, CL, CO2, GLUCOSE, BUN, CREATININE, CA)2022-04-06 09:47:17 Test Item Value Reference Range Interpretation Comments NA (test code = 134 mmol/L 135-145 L 3535029500) K (test code = 4.2 mmol/L 3.5-5 Slight 0457042389) hemolysis CL (test code = 114 mmol/L 98-108 H 0983875465) CO2 TOTAL (test code 16 mmol/L 23-31 L = 5506462599) AGAP (test code = 2-16 6403018129) BUN (test code = 16 mg/dL 7-23 Slight 1886844968) hemolysis GLUCOSE (test code = 79 mg/dL 70-110 1395753731) CREATININE (test code 1.00 mg/dL 0.6-1.25 = 7611825954) CALCIUM (test code = 7.5 mg/dL 8.6-10.6 L 5400325397) eGFR (test code = mL/min/1.73m2 3100851594) GILBERTO (test code = GILBERTO) Association of [...] tests). Lab Interpretation Abnormal (test code = 47999-2) [facility] Test Item Value Reference Range Interpretation Comments MAGNESIUM (test code = 6304132042) 1.2 mg/dL 1.7-2.4 L Lab Interpretation (test code = Abnormal 64701-4) [facility] Whole [id number] 09:16:49 Test Item Value Reference Range Interpretation Comments LACTIC ACID (test code = 1.35 mmol/L 0.5-2.2 0249786020) Lab Interpretation (test code = Normal 37119-7) [facility] WITH [id number] 09:13:32 Test Item Value Reference Range Interpretation [...] (test code = 52.4 fL 38.5-51.6 H 37771-7) RDW-CV (test code = 16.6 % 12.1-15.4 H 788-0) PLT (test code = See_Comment [Automated 777-3) message] The sy stem which generated this result transmitted reference range : 150 - 328 10*3/ ?L. The reference r meredith was not used to interpret this result as normal/abnormal . MPV (test code = 10.0 fL 9.8-13 23886-4) NRBC/100 WBC (test See_Comment [Automat ed code = 2599844506) message] The system which generated this result transmitted reference range : 0.0 - 10.0 /100 WBCs. The refer ence range was not u sed to interpret th is result as normal/abnormal . NRBC x10^3 (test code See_Comment [Auto mated = 1450202859) message] The s ystem which generated this result transmitted reference range : 10*3/?L. The reference range was not used to interpret this result as normal/abnormal . GRAN MAT (NEUT) % 48.6 % (test code = 770-8) IMM GRAN % (test code 0.20 % = 9867874718) LYMPH % (test code = 39.4 % 736-9) MONO % (test code = 9.3 % 5905-5) EOS % (test code = 1.9 % 713-8) BASO % (test code = 0.6 % 706-2) GRAN MAT x10^3(ANC) 2.36 10*3/uL 1.99-6.95 (test code = 0680861064) IMM GRAN x10^3 (test 0-0.06 code = 2907855371) LYMPH x10^3 (test code 1.91 10*3/uL 1.09-3.23 = 731-0) MONO x10^3 (test code 0.45 10*3/uL 0.36-1.02 = 742-7) EOS x10^3 (test code = 0.09 10*3/uL 0.06-0.53 711-2) BASO x10^3 (test code 0.03 10*3/uL 0.01-0.09 = 704-7) Lab Interpretation Abnormal (test code = 55085-5) [facility]12 07:34:48 Test Item Value Reference Range Interpretation Comments MAGNESIUM (test code = 0687360136) 1.8 mg/dL 1.7-2.4 Lab Interpretation (test code = Normal 75135-1) [facility] BLO[facility] [id number] 18:40:18 Test Item Value Reference Range Interpretation Comments PH (test code = 7.32-7.42 L 1546314297) PCO2 PANKAJ (test code = See_Comment [Auto mated message] 9175524654) The system [employer] generated this result transmitted ref erence range: 41 - 51 mmHg. The reference r meredith was not used to interpret this result as normal/abnor mal. PO2 PANKJA (test code = See_Comment L [Autom ated message] [id number]) The system [employer] generated this result transmitted ref erence range: 25 - 40 mmHg. The reference r meredith was not used to interpret this result as normal/abnor mal. HCO3 PANKAJ (test code = See_Comment L [Auto mated message] [id number]) The system [employer] generated this result transmitted ref erence range: 24 - 28 mEq/L. The reference r meredith was not used to interpret this result as normal/abnor mal. AC VBE(BEAKER) (test mEq/L code = 8067240904) Lab Interpretation (test Abnormal code = 12646-9) [facility] METABOLIC PANEL (NA, K, CL, CO2, GLUCOSE, BUN, CREATININE, CA)2022-04-03 18:33:26 Test Item Value Reference Range Interpretation Comments NA (test code = 129 mmol/L 135-145 L [id number]) K (test code = 3.3 mmol/L 3.5-5 L 4286288679) CL (test code = 100 mmol/L 98-108 4471507121) CO2 TOTAL (test code = 19 mmol/L 23-31 L 4619964546) AGAP (test code = 2-16 0945007783) BUN (test code = 49 mg/dL 7-23 H 2069075669) GLUCOSE (test code = 75 mg/dL 70-110 4813410841) CREATININE (test code = 2.55 mg/dL 0.6-1.25 H 9552945128) CALCIUM (test code = 8.6 mg/dL 8.6-10.6 6342270089) eGFR (test code = mL/min/1.73m2 8706363602) GILBERTO (test code = GILBERTO) Association of [...] tests). Lab Interpretation Abnormal (test code = 08149-8) [facility], SERUM OR [id number] 15:45:31 Test Item Value Reference Range Interpretation Comments OSMOLALITY (test code = See_Comment [Au tomated message] 2692-2) The system [employer] generated this result transmitted ref erence range: 278 - 30 5 mOsm/kg. The re ference range was not u sed to interpret this result as normal/abnor mal. Lab Interpretation (test Normal code = 09129-0) [facility] with [id number] 11:27:34 Test Item Value Reference Range Interpretation Comments WBC (test code = See_Comment [Automated 2590-2) message] The sy stem which generated this result transmitted reference range : 4.20 - 10.70 10*3/?L. The reference range was not used to interpret this result as normal/abnormal . RBC (test code = See_Comment L [Automated 659-8) message] The sy stem which [...] RDW-SD (test code = 48.7 fL 38.5-51.6 49356-8) RDW-CV (test code = 15.9 % 12.1-15.4 H 788-0) PLT (test code = See_Comment [Automated 777-3) message] The sy stem which generated this result transmitted reference range : 150 - 328 10*3/ ?L. The reference r meredith was not used to interpret this result as normal/abnormal . MPV (test code = 9.4 fL 9.8-13 L 47830-9) NRBC/100 WBC (test See_Comment [Automat ed code = 5048298375) message] The system which generated this result transmitted reference range : 0.0 - 10.0 /100 WBCs. The refer ence range was not u sed to interpret th is result as normal/abnormal . NRBC x10^3 (test code See_Comment [Auto mated = 1632300258) message] The s ystem which generated this result transmitted reference range : 10*3/?L. The reference range was not used to interpret this result as normal/abnormal . GRAN MAT (NEUT) % 56.0 % (test code = 770-8) IMM GRAN % (test code 0.50 % = 2835157092) LYMPH % (test code = 33.2 % 736-9) MONO % (test code = 8.6 % 5905-5) EOS % (test code = 1.1 % 713-8) BASO % (test code = 0.6 % 706-2) GRAN MAT x10^3(ANC) 3.64 10*3/uL 1.99-6.95 (test code = 4055933778) IMM GRAN x10^3 (test 0.03 10*3/uL 0-0.06 code = 0912237948) LYMPH x10^3 (test code 2.16 10*3/uL 1.09-3.23 = 731-0) MONO x10^3 (test code 0.56 10*3/uL 0.36-1.02 = 742-7) EOS x10^3 (test code = 0.07 10*3/uL 0.06-0.53 711-2) BASO x10^3 (test code 0.04 10*3/uL 0.01-0.09 = 704-7) Lab Interpretation Abnormal (test code = 53030-4) [facility] Metabolic Panel (NA, K, CL, CO2, GLUCOSE, BUN, CREATININE, CA)2022-04-03 10:08:59 Test Item Value Reference Range Interpretation Comments NA (test code = 125 mmol/L 135-145 L 4618069357) K (test code = 3.7 mmol/L 3.5-5 7037824791) CL (test code = 96 mmol/L 98-108 L 2230087786) CO2 TOTAL (test code = 15 mmol/L 23-31 L 8221690961) AGAP (test code = 2-16 9358860128) BUN (test code = 50 mg/dL 7-23 H 1636014915) GLUCOSE (test code = 86 mg/dL 70-110 5475156350) CREATININE (test code = 3.86 mg/dL 0.6-1.25 H 5637521694) CALCIUM (test code = 8.6 mg/dL 8.6-10.6 3829191909) eGFR (test code = mL/min/1.73m2 6385996959) GILBERTO (test code = GILBERTO) Association of [...] tests). Lab Interpretation Abnormal (test code = 16036-4) [facility] [id number] 04:09:02 Test Item Value Reference Range Interpretation Comments LACTIC ACID (test code = 1.54 mmol/L 0.5-2.2 7543769010) Lab Interpretation (test code = Normal 63148-1) [facility] [id number] 00:25:08 Test Item Value Reference Range Interpretation Comments LACTIC ACID (test code = 2.50 mmol/L 0.5-2.2 H 5580598215) Lab Interpretation (test code = Abnormal 59183-0) [facility] WITH [id number] 20:19:45 Test Item Value Reference Range Interpretation Comments WBC (test code = See_Comment H [Automated 0970-2) message] The system which generated this result transmit dain reference range : 4.20 - 10.70 10*3/?L. The reference range was not used to interpret this result as normal/abnormal . RBC (test code = See_Comment [Automated 693-8) message] The system which generated this result [...] RDW-SD (test code = 49.8 fL 38.5-51.6 01169-6) RDW-CV (test code = 16.4 % 12.1-15.4 H 788-0) PLT (test code = See_Comment H [Automated 777-3) message] The system which generated this result transmit dain reference range : 150 - 328 10*3/ ?L. The reference range was not u sed to interpret th is result as normal/abnormal . MPV (test code = 10.7 fL 9.8-13 53979-0) NRBC/100 WBC (test See_Comment [Automat ed code = 6453992133) message] The system which generated this result transmit dain reference range : 0.0 - 10.0 /100 WBCs. The reference range was not used to interpret this result as normal/abnormal . NRBC x10^3 (test code See_Comment [Auto mated = 4404750037) message] The system which generated this result transmit dain reference range : 10*3/?L. The reference range was not used to interpret this result as normal/abnormal . GRAN MAT (NEUT) % 73.4 % (test code = 770-8) IMM GRAN % (test code 0.60 % = 0826707474) LYMPH % (test code = 17.2 % 736-9) MONO % (test code = 8.2 % 5905-5) EOS % (test code = 0.2 % 713-8) BASO % (test code = 0.4 % 706-2) GRAN MAT x10^3(ANC) 10.17 10*3/uL 1.99-6.95 H (test code = 4748697825) IMM GRAN x10^3 (test 0.09 10*3/uL 0-0.06 H code = 3793963840) LYMPH x10^3 (test code 2.38 10*3/uL 1.09-3.23 = 731-0) MONO x10^3 (test code 1.13 10*3/uL 0.36-1.02 H = 742-7) EOS x10^3 (test code = 0.03 10*3/uL 0.06-0.53 L 711-2) BASO x10^3 (test code 0.05 10*3/uL 0.01-0.09 = 704-7) Lab Interpretation Abnormal (test code = 23860-1) [facility]/AUTO [id number] 00:06:00 Test Item Value Reference Range Interpretation [...] = MX#) 0.5 k/mm3 0.1-0.8 N TROPONIN-I [id number] 15:07:00 Test Item Value Reference Range Interpretation Comments TROPONIN-I RAPID 0.00 ng/mL 0.00-0.08 N Performed b y certified (test code = 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 [facility]) Ctr Negative: <= 0.08 Positive: >= 0. 09An elevated tropon [...] changes in trop onin levels characteristic of [place]. BASIC METABOLIC [id number] 14:56:00 Test Item Value Reference Range Interpretation [...] MG/DL 70-110 N - XR CHEST 1 [id number] 00:00:00 [facility] : 1970 Sex: M FAX: Sabi Urias MD [phone] [place]: [place] St: REG Name: HOANG JOSEPH FSED : 1970 Age/S: 52/M [address] [facility] Unit #: [id number] Loc: [place] [address] Phys: Sabi Urias MD Acct: [id number] Dis Date: Status: REG ER PHONE #: Exam Date: 03/29/2022 1507 FAX #: Reason: Weakness EXAMS: CPT CODE: [id number] XR CHEST 1 V 61326 PROCEDURE INFORMATION: Exam: XR Chest Exam date and time: 03/29/2022 2:31 PMAge: 52 years old Clinical indication: Other: Weakness; [...] CC: Sabi Urias MD Technologist: RT Simone(R)(CT) Trnscrd Date/Time/By: 03/29/2022 (1530): By: GarettTTV Orig Print D/T: S: 03/29/2022 (1531) PAGE 1 Signed ReportHEPATIC FUNCTION [id number] 06:45:03 Test Item Value Reference Range Interpretation [...] (test code = 13 U/L 6-55 347) Firepot Operator And Tender ID Philipp HOOD WBASIC METABOLIC [id number] 06:45:02 Test Item Value Reference Range Interpretation [...] S NOT APPLICABLE FOR DIALYSIS PATIEN TS. Firepot Operator And Tender ID Philipp HOOD WCBC W/PLT COUNT & AUTO [id number] 06:26:54 Test Item Value Reference Range Interpretation [...] (BEAKER) (test code = 2801) U/S, RENAL, [id number] 19:23:00Reason for exam:->acute kidney injury [facility] : 1970 Sex: MFINAL REPORT [...] SARS-Co V-2 (test code = target nucleic 41073-9) acids are not detected in thi s [...] om SARS-CoV-2 in a nasopharyngeal swab specimen [facility] from individual s suspected of COVID-19 [...] revoked sooner. Fact Sheet for Healthcare Providers: https://www.Feedlook[employer]/Documents/Xp ert%20Xpress%20SAR S%20CoV-2/Fact%20S heets/302-3802%20S ARS-COV-2%20HEALTH CARE%20PROVIDERS%2 0FACT%20SHEET.pdf Fact Sheet for Healthcare Patients: https://www.[employer]/Documents/Xp ert%20Xpress%20SAR S%20CoV-2/Fact%20S heets/302-3801%20S ARS-COV-2%20PATIEN T%20FACT%20SHEET.p df Lab Interpretation Normal (test code = 64474-3) [facility]2022-03-06 19:17:07 Test Item Value Reference Interpretation Comments Range SARS-COV2/RT-PCR Negative Negative The SARS-Co V-2 (test code = target nucleic 32503-7) acids are not detected in thi s [...] om SARS-CoV-2 in a nasopharyngeal swab specimen collec dain from individual s suspected of COVID-19 by [...] revoked sooner. Fact Sheet for Healthcare Providers: https://www.Feedlook[employer]/Documents/Xp ert%20Xpress%20SAR S%20CoV-2/Fact%20S heets/302-3802%20S ARS-COV-2%20HEALTH CARE%20PROVIDERS%2 0FACT%20SHEET.pdf Fact Sheet for Healthcare Patients: https://www.Feedlooks/Documents/Xp ert%20Xpress%20SAR S%20CoV-2/Fact%20S heets/302-3801%20S ARS-COV-2%20PATIEN T%20FACT%20SHEET.p df Lab Interpretation Normal (test code = 28889-3) [facility])2022-03-06 19:17:07 Test Item Value Reference Range Interpretation Comments SARS-COV2/RT-PCR Negative Negative The SARS-Co V-2 target (test code = nucleic acids a re not 9970751) detected in thi s specimen. Negative result [...] revoked sooner. Fact Sheet for Healthcare Providers: https://MOBEXO.[employer] m/Documents/Xpert%20Xpress%20SARS%20CoV-2/Fact%20Sheets/302-3802%92VHZN-CFG-4%20 HEALTHCARE%20PROVIDERS%20FACT%20SHEET.pdf Fact Sheet for Healthcare Patients: https://www.[employer]/Documents/Xpert%20Xp ress%20SARS%20CoV-2/Fact%20Sheets/302-3801%18WWYU-WCX-2%20PATIENT%20FACT%20SHEET .pdfCREATINE KINASE (CK)2022-03-06 16:19:14 Test Item Value Reference Range Interpretation Comments CREATINE KINASE TOTAL (BEAKER) (test 141 U/L 29-200 code = 380) Firepot Operator And Tender ID - BST4, [id number] 15:13:16 Test Item Value Reference Range Interpretation Comments FREE T4 (BEAKER) (test code = 655) 0.95 ng/dL 0.70-1.48 Firepot Operator And Tender ID - BSTSH/FREE T4 IF [id number] 15:13:16 Test Item Value Reference Range Interpretation Comments THYROID STIMULATING HORMONE 2.060 uIU/mL 0.350-4.940 (BEAKER) (test code = 772) Firepot Operator And Tender ID - BSB-TYPE NATRIURETIC FACTOR (BNP)2022-03-06 14:26:30 Test Item Value Reference Range Interpretation Comments B-TYPE NATRIURETIC PEPTIDE (BEAKER) < pg/mL 0-100 (test code = 700) Firepot Operator And Tender ID - JSHIGH SENSITIVITY TROPONIN [id number] 14:14:54 Test Item Value Reference Range Interpretation Comments HIGH SENSITIVITY < pg/ml See_Comment [Automated message] TROPONIN I (test code = The system which 7977114) generated this result transmitted ref erence range: <=35. Th e reference range was not used to interpr et this result as normal/abnormal . Firepot Operator And Tender ID - JSThe HOME HEALTH REGISTERED NURSE STAT High Sensitivity Troponin-I results should be used in conjunctionwith other diagnostic information such as ECG, clinical observations and information, and patient symptoms to aid in the diagnosis of [place].RAD, CHEST, 1 VIEW, NON UIJF9903-01-16 14:10:00Reason for exam:- >NEUROLOGIC PROBLEMShould this be performed at the bedside?->Yes [facility] 1970 Sex: MFINAL REPORT Chest, 1 view, 03/06/2022 2:03 PM. History: Neurologic problem. Comparison: 03/28/2019. Discussion: The cardiomediastinal silhouette and pulmonary vasculature are within normal limits for a portable exam. The lungs are clear without evidence of consolidation or effusion. Thesoft tissues and osseous structures are intact. IMPRESSION: No acute cardiopulmonary abnormality. Signed: [facility] Verified Date/Time: 03/06/2022 14:10:44 REHENSIVE METABOLIC [id number] 14:08:22 Test Item Value Reference Range Interpretation [...] S NOT APPLICABLE FOR DIALYSIS PATIEN TS. Firepot Operator And Tender ID - [id number] 14:07:49 Test Item Value Reference Range Interpretation Comments MAGNESIUM (BEAKER) (test code = 2.0 mg/dL 1.6-2.6 627) Firepot Operator And Tender ID - [id number] 14:07:49 Test Item Value Reference Range Interpretation Comments PHOSPHORUS (BEAKER) (test code = 5.6 mg/dL 2.3-4.7 H 604) Firepot Operator And Tender ID - JSLACTIC ACID, [id number] 13:51:04 Test Item Value Reference Range Interpretation Comments LACTATE BLOOD VENOUS 1.32 mmol/L 0.50-2.20 Specime n slightly (2) (BEAKER) (test hemolyzed code = 1052) Firepot Operator And Tender ID - JSCBC W/PLT COUNT & AUTO [id number] 13:47:24 Test Item Value Reference Range Interpretation [...] (BEAKER) (test code = 2801) Coronavirus, CoVID-19, [id number] 01:07:20 Test Item Value Reference Range Interpretation Comments COVID-19 (SARS-COV-2) Not Detected Not Detected INTERP RETATION: No (test code = 15148-5) detect able levels of SARS-CoV-2 Coronavirus (COVID-19) [...] SARS-CoV-2 mole cular diagnostic assa y utilizes Trim Mechanic Mediated Amplification ( TMA) technology to r apidly detect the SARS -CoV-2 (COVID-19) viru s from respiratory adriana ples. In accordance w ith the FDA's kamran nce document "Polic y for Diagnostic Test s for Coronavirus Disease-2019 du ring the Public [facility] Emergency", thi s test was developed, and its performance characteristics were verified by the [facility] molecular diagn ostics laboratory and is authorized for clinical diagno stic use. This labor atory is certified un estevan the Clinical Laboratory Improvement Amendments (CLI A) as qualified to pe rform high complexity clinical labora tory testing. Lab Interpretation Normal (test code = 46938-0) [facility], [id number] 01:07:20 Test Item Value Reference Range Interpretation Comments COVID-19 (SARS-COV-2) Not Detected Not Detected INTERP RETATION: No (test code = 17560-8) detect able levels of SARS-CoV-2 Coronavirus (COVID-19) [...] SARS-CoV-2 mole cular diagnostic assa y utilizes Trim Mechanic Mediated Amplification ( TMA) technology to r apidly detect the SARS -CoV-2 (COVID-19) viru s from respiratory adriana ples. In accordance w ith the FDA's kamran nce document "Polic y for Diagnostic Test s for Coronavirus Disease-2018 du ring the Public [facility]", thi s test was developed, and its performance characteristics were verified by the [facility] molecular diagn ostics laboratory and is authorized for clinical diagno stic use. This labor atory is certified un est[place] the Clinical Laboratory Improvement Amendments (CLI A) as qualified to pe rform high complexity clinical labora tory testing. Lab Interpretation Normal (test code = 12038-8) [facility] HospitalJarsyeXETW-PoE-0 ORF1ab Resp Ql OLENA+afuxt9670-58-72 01:07:20 Test Item Value Reference Range Interpretation Comments Hospitalized? (test No code = 02177-7) ICU? (test code = No 84446-2) Symptomatic as No defined by CDC? (test code = 97422-5) Employed in No Healthcare? (test code = 26957-8) Resident in a No congregate care setting (including nursing homes, residential care for people with intellectual and developmental disabilities, psychiatric treatment facilities, group homes, board and care homes, homeless residential, foster care or other): (test code = 36827-0) SARS-CoV-2 ORF1ab NOT DETECTED Not Detected INTERPRETA TION: No Resp Ql OLENA+probe detectable levels of (test code = SARS-CoV-2 27266-2) Coronavirus (COVID-19) were present in this patient's [...] SARS-CoV-2 mole cular diagnostic assa y utilizes Trim Mechanic Mediated Amplification ( TMA) technology to r apidly detect the SARS -CoV-2 (COVID-19) viru s from respiratory adriana ples. In accordance with\\XC2A0\\the FDA's guidance docume nt "Policy for Diagnostic Test s for Coronavirus Disease-2018 du [facility]", amalia s test was developed, and its performance characteristics were verified by the [facility] molecular diagn ostics laboratory and is authorized for clinical diagno stic use. \\XC2A0\\Amalia s laboratory is certified under the Clinical Labora tory Improvement Amendments (CLI A) as qualified to pe rform high complexity clinical labora tory testing. POCT GLUCOSE POC docked [id number] 08:09:01 Test Item Value Reference Range Interpretation Comments Glucose POC (test code = 77535525) 85 mg/dL 74-106 Lab Interpretation (test code = Normal 97240-1) [facility] GLUCOSE POC docked wfjzij7628-07-82 08:09:01 Test Item Value Reference Range Interpretation Comments Glucose POC (test code = 12163344) 85 mg/dL 74-106 Lab Interpretation (test code = Normal 18818-5) [facility] ORF1ab Resp Ql OLENA+pcwyh6068-46-21 23:25:40 Test Item Value Reference Range Interpretation Comments Hospitalized? (test No code = 29331-6) ICU? (test code = No 92824-5) Symptomatic as No defined by CDC? (test code = 86806-8) Employed in No Healthcare? (test code = 31574-3) Resident in a No congregate care setting (including nursing homes, residential care for people with intellectual and developmental disabilities, psychiatric treatment facilities, group homes, board and care homes, homeless residential, foster care or other): (test code = 12913-8) SARS-CoV-2 ORF1ab NOT DETECTED Not Detected INTERPRETA TION: No Resp Ql OLENA+probe detectable levels of (test code = SARS-CoV-2 69595-9) Coronavirus (COVID-19) were present in this patient's [...] SARS-CoV-2 mole cular diagnostic assa y utilizes Trim Mechanic Mediated Amplification ( TMA) technology to r apidly detect the SARS -CoV-2 (COVID-19) viru s from respiratory adriana ples. In accordance with\\XC2A0\\the FDA's guidance docume nt "Policy for Diagnostic Test s for Coronavirus Disease-2018 du [facility] Emergency", amalia s test was developed, and its performance characteristics were verified by the [facility] molecular diagn ostics laboratory and is authorized for clinical diagno stic use. \\XC2A0\\Thi s laboratory is certified under the Clinical Labora tory Improvement Amendments (CLI A) as qualified to pe rform high complexity clinical labora tory testing. 12 Lead [id number] 15:46:1012 LEAD EKG FOR [facility] Test Date: 4585-67-60Bdj Name: DORA JOSEPH Department: 5ECIPatient ID: [id number] Room: Gender: Bradley Linebacker Crewmember: [id number]: 1970 Requested By: SUSHIL LOERA [place] Number: [id number] Lawson MD: Rene Patterson MeasurementsIntervals Leland Rate: 61 P: 72PR: 152 QRS: 55QRSD: 106 T: 63QT: 398 QTc: 400 Interpretive StatementsSINUS RHYTHMPOSSIBLE RIGHT VENTRICULAR CONDUCTION DELAY [RSR (QR) IN V1/V2]Electronically Signed On 01-22-2022 8:30:45 CDT by [place]ene [place]Re[place] [address] Lead [id number] 15:46:1012 LEAD EKG FOR [facility] Test Date: 6718-43-57Lzm Name: DORA JOSEPH Department: 5ECIPatient ID: [id number] Room: Gender: M Bradley Linebacker Crewmember: [id number]: 1970 Requested By: SUSHIL Cho Number: [id number] Reading MD: Rene Patterson MeasurementsIntervals Leland Rate: 61 P: 72PR: 152 QRS: 55QRSD: 106 T: 63QT: 398 QTc: 400 Interpretive StatementsSINUS RHYTHMPOSSIBLE RIGHT VENTRICULAR CONDUCTION DELAY [RSR (QR) IN V1/V2]Electronically Signed On 01-22-2022 8:30:45 CDT by [facility] 1+2 Ab+HIV1 p24 Ag SerPl Ql [id number] 07:02:58 Test Item Value Reference Range Interpretation Comments HIV 1+2 Ab+HIV1 p24 Ag SerPl Ql IA NEGATIVE Negative (test code = 18114-6) [id number] 21:23:2512 LEAD EKG FOR [facility] Test Date: 2563-88-00Hmy Name: DORA JOSEPH Department: 5520Patient ID: [id number] Room: 4U12Cwbbzs: M Bradley Linebacker Crewmember: : 1970 Requested By: KARIN BASSETT AOrder Number: [id number] Reading MD: Chiara Calles MeasurementsIntervals Leland Rate: 72 P: 90PR: 157 QRS: 87QRSD: 105 T: 90QT: 360 QTc: 384 Interpretive StatementsSINUS RHYTHMPOSSIBLE RIGHT VENTRICULAR CONDUCTION DELAY [RSR (QR) IN V1/V2]EARLY REPOLARIZATION [ST ELEVATION WITH NORMALLY INFLECTED T-WAVE]Electronically Signed On 01-17-2022 13:02:30 CDT by Chiara DavisKaiser Foundation HospitalCompaFerry County Memorial HospitalOnbfgdGXZ6592-09-78 21:23:2512 LEAD EKG FOR [facility] Test Date: 1259-29-98Ftv Name: DORA JOSEPH Department: 5520Patient ID: [id number] Room: 7Y94Ldumhf: M Bradley Linebacker Crewmember: : 1970 Requested By: KARIN BASSETT AOrder Number: [id number] Reading MD: Chiara Calles MeasurementsIntervals Leland Rate: 72 P: 90PR: 157 QRS: 87QRSD: 105 T: 90QT: 360 QTc: 384 Interpretive StatementsSINUS RHYTHMPOSSIBLE RIGHT VENTRICULAR CONDUCTION DELAY [RSR (QR) IN V1/V2]EARLY REPOLARIZATION [ST ELEVATION WITH NORMALLY INFLECTED T-WAVE]Electronically Signed On 01-17-2022 13:02:30 CDT by Chiara [facility]Leg[facility] ORF1ab Resp Ql OLENA+probe 2022-01-16 19:57:49 Test Item Value Reference Range Interpretation Comments Hospitalized? (test No code = 44566-8) ICU? (test code = No 71342-9) Symptomatic as No defined by CDC? (test code = 94108-3) Employed in No Healthcare? (test code = 59013-4) Resident in a No congregate care setting (including nursing homes, residential care for people with intellectual and developmental disabilities, psychiatric treatment facilities, group homes, board and care homes, homeless residential, foster care or other): (test code = 67707-9) SARS-CoV-2 ORF1ab NOT DETECTED Not Detected INTERPRETA TION: No Resp Ql OLENA+probe detectable levels of (test code = SARS-CoV-2 48089-6) Coronavirus (COVID-19) were present in this patient's [...] SARS-CoV-2 mole cular diagnostic assa y utilizes Trim Mechanic Mediated Amplification ( TMA) technology to r apidly detect the SARS -CoV-2 (COVID-19) viru s from respiratory adriana ples. In accordance with\\XC2A0\\the FDA's guidance docume nt "Policy for Diagnostic Test s for Coronavirus Disease-2019 du ring the Public Heal Emergency", thi s test was developed, and its performance characteristics were verified by the [facility] molecular diagn ostics laboratory and is authorized for clinical diagno stic use. \\XC2A0\\Thi s laboratory is certified under the Clinical Labora tory Improvement Amendments (CLI A) as qualified to pe rform high complexity clinical labora tory testing. POCT CREATININE POC docked [id number] 13:57:55 Test Item Value Reference Range Interpretation Comments Creatinine POC (test 2.4 mg/dL 0.6-1.3 H Physici an Notified code = 05465361) eGFR If non- Am 30 See_Comment L [Aut omated message] (test code = 21652204) The s ystem which generated this result transmit dain reference range : >=90 mL/min/1.7 3 m2. The reference r meredith was not used to interpret this result as normal/abnormal . eGFR If Am (test 35 See_Comment L [A utomated message] code = 41856183) The system which generated this result transmit dain reference range : >=90 mL/min/1.7 3 m2. The reference r meredith was not used to interpret this result as normal/abnormal . Lab Interpretation (test Abnormal code = 74826-6) [facility] CREATININE POC docked esmujv1242-74-95 13:57:55 Test Item Value Reference Range Interpretation Comments Creatinine POC (test 2.4 mg/dL 0.6-1.3 H Physici an Notified code = 37776931) eGFR If non- Am 30 See_Comment L [Aut omated message] (test code = 34315412) The s ystem which generated this result transmit dain reference range : >=90 mL/min/1.7 3 m2. The reference r meredith was not used to interpret this result as normal/abnormal . eGFR If Am (test 35 See_Comment L [A utomated message] code = 65989097) The system which generated this result transmit dain reference range : >=90 mL/min/1.7 3 m2. The reference r meredith was not used to interpret this result as normal/abnormal . Lab Interpretation (test Abnormal code = 92548-5) [facility] BMP POC docked rqffjt5350-13-59 13:48:46 Test Item Value Reference Range Interpretation Comments Sodium POC (test code = 126 mmol/L 136-145 L 31406340) Potassium POC (test code 4.4 mmol/L 3.5-5.1 = 03211373) Chloride POC (test code 100 mmol/L 98-107 = 63722059) TCO2 POC (test code = 17 mmol/L 21-32 L Physic aylin Notified 85820989) Urea Nitrogen POC (test 36 mg/dL 7-18 H code = 25287120) Glucose POC (test code = 114 mg/dL 74-106 H 49099342) Hemoglobin POC (test 11.9 g/dL 12-16 L code = 91626087) Hematocrit POC (test 35.0 % 37.0-47.0 L code = 48642393) Lab Interpretation (test Abnormal code = 05771-6) [facility] BMP POC docked isscke8705-38-33 13:48:46 Test Item Value Reference Range Interpretation Comments Sodium POC (test code = 126 mmol/L 136-145 L 60322741) Potassium POC (test code 4.4 mmol/L 3.5-5.1 = 18128123) Chloride POC (test code 100 mmol/L 98-107 = 56260025) TCO2 POC (test code = 17 mmol/L 21-32 L Physic aylin Notified 56618516) Urea Nitrogen POC (test 36 mg/dL 7-18 H code = 30940301) Glucose POC (test code = 114 mg/dL 74-106 H 85952004) Hemoglobin POC (test 11.9 g/dL 12-16 L code = 43561803) Hematocrit POC (test 35.0 % 37.0-47.0 L code = 42701110) Lab Interpretation (test Abnormal code = 08559-9) [facility]-CoV-2 ORF1ab Resp Ql OLENA+[id number] 20:25:16 Test Item Value Reference Range Interpretation Comments Hospitalized? (test No code = 36012-8) ICU? (test code = No 84043-2) Symptomatic as No defined by CDC? (test code = 54290-8) Employed in No Healthcare? (test code = 82810-2) Resident in a No congregate care setting (including nursing homes, residential care for people with intellectual and developmental disabilities, psychiatric treatment facilities, group homes, board and care homes, homeless residential, foster care or other): (test code = 12732-0) SARS-CoV-2 ORF1ab NOT DETECTED Not Detected INTERPRETA TION: No Resp Ql OLENA+probe detectable levels of (test code = SARS-CoV-2 13721-9) Coronavirus (COVID-19) were present in this patient's [...] SARS-CoV-2 mole cular diagnostic assa y utilizes Trim Mechanic Mediated Amplification ( TMA) technology to r apidly detect the SARS -CoV-2 (COVID-19) viru s from respiratory adriana ples. In accordance with\\XC2A0\\the FDA's guidance docume nt "Policy for Diagnostic Test s for Coronavirus Disease-2019 du [facility] the [facility]", amalia lopez test was developed, and its performance characteristics were verified by the [facility] molecular diagn ostics laboratory and is authorized for clinical diagno stic use. \\XC2A0\\Amalia s laboratory is certified under the Clinical Labora tory Improvement Amendments (CLI A) as qualified to pe rform high complexity clinical labora tory testing. POCT VBG POC docked [id number] 11:16:15 Test Item Value Reference Range Interpretation Comments pH, Pankaj POC (test code 7.32 7.33-7.43 L = 80414925) pCO2,Pankaj POC (test code 31.0 See_Comment L [Au tomated = 98707153) message] The sy stem which generated this result transmitted reference range : 38 - 50 mmHg. The reference range was not used to interpret this result as normal/abnormal . PO2, Venous POC (BKR) 44 See_Comment L [Auto mated (test code = 80789524) WISHCLOUDS] The system which generated this result transmitted reference range : 50 - 75 mm Hg. The reference range was not used to interpret this result as normal/abnormal . Ionized Calcium POC 1.24 mmol/L 1.15-1.29 (test code = 67846358) HCO3, Pankaj POC (test 16 mmol/L 22-26 L code = 24953922) TCO2 POC (test code = 17 mmol/L 21-32 L 50501855) Base Deficit, Pankaj POC -9 (test code = 39909810) Sample Type (test code IVFLORENCE Physi erik Notified = 96979565) % Sat, Pankaj POC (test 77 % code = 69191292) Lab Interpretation Abnormal (test code = 17459-3) [facility] VBG POC docked [id number] 11:16:15 Test Item Value Reference Range Interpretation Comments pH, Pankaj POC (test code 7.32 7.33-7.43 L = 08172227) pCO2,Pankaj POC (test code 31.0 See_Comment L [Au tomated = 29601377) message] The sy stem which generated this result transmitted reference range : 38 - 50 mmHg. The reference range was not used to interpret this result as normal/abnormal . PO2, Venous POC (BKR) 44 See_Comment L [Auto mated (test code = 47691915) WISHCLOUDS] The system which generated this result transmitted reference range : 50 - 75 mm Hg. The reference range was not used to interpret this result as normal/abnormal . Ionized Calcium POC 1.24 mmol/L 1.15-1.29 (test code = 40093471) HCO3, Pankaj POC (test 16 mmol/L 22-26 L code = 57046406) TCO2 POC (test code = 17 mmol/L 21-32 L 22322864) Base Deficit, Pankaj POC -9 (test code = 01827276) Sample Type (test code IVFLORENCE Physi erik Notified = 00853059) % Sat, Pankaj POC (test 77 % code = 75952246) Lab Interpretation Abnormal (test code = 61679-0) [place] [address] LEAD [id number] 20:59:5612 [facility]AD E[facility] Test Date: 4412-31-71Plm Name: DORA JOSEPH Department: 5520Patient ID: [id number] Room: Gender: M Bradley Linebacker Crewmember: [id number]: 1970 Requested By: TANJA Garza Number: [id number] Reading MD: Chiara Calles MeasurementsIntervals Leland Rate: 75 P: 84PR: 153 QRS: 67QRSD: 104 T: 77QT: 344 QTc: 373 Interpretive StatementsSINUS RHYTHMPOSSIBLE RIGHT VENTRICULAR CONDUCTION DELAY [RSR (QR) IN V1/V2]Electronically Signed On 01-09-2022 8:27:19 CDT by [place] [address] LEAD [id number] 20:59:5612 LEAD EKG [facility] Test Date: 9837-10-48Yao Name: DORA JOSEPH Department: 5520Patient ID: [id number] Room: Gender: M Bradley Linebacker Crewmember: [id number]: 1970 Requested By: TANJA Garza Number: [id number] Reading MD: Chiara Calles MeasurementsIntervals Leland Rate: 75 P: 84PR: 153 QRS: 67QRSD: 104 T: 77QT: 344 QTc: 373 Interpretive StatementsSINUS RHYTHMPOSSIBLE RIGHT VENT RICULAR CONDUCTION DELAY [RSR (QR) IN V1/V2]Electronically Signed On 01-09-2022 8:27:19 [facility] [id number] 23:52:00 Test Item Value Reference Range Interpretation [...] = MX#) 0.8 k/mm3 0.1-0.8 N LIVER [id number] 20:04:00 Test Item Value Reference Range Interpretation Comments TOTAL PROTEIN (test code 6.7 GM/DL 5.0-8.0 N Per formed by = PROT) 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 [facility] ALBUMIN (test code = 3.4 [...] 67 UNITS/L 25-125 N TAWNY) BASIC METABOLIC [id number] 19:54:00 Test Item Value Reference Range Interpretation [...] POCGLU) 81 MG/DL - CT ABD PELVIS W/[id number] 00:00:00 [facility] HO[facility] JOSEPH : 1970 Sex: M Name: HOANG JOSEPH FSED : 1970 Age/S: 51 / M [address] [facility] Unit #: [id number] Loc: [place] [address] Phys: Raffaele Levi MD Acct: [id number] Dis Date: Status: PRE ER PHONE #: Exam Date: 09/23/20211999 FAX #: Reason: RUQ PAIN, VOMITING EXAMS: CPT CODE: [id number] CT ABD PELVIS W/CONT 92114 PROCEDURE INFORMATION: Exam: CT Abdomen And Pelvis [...] PAGE 1 Signed Report (CONTINUED) Name: HOANG JSOEPH FSED : 1970 Age/S: 51 / M [address] [facility] Unit #: [id number] Loc: [place] [address] Phys: Raffaele Levi MD Acct: [id number] Dis Date: Status: PRE ER PHONE #: Exam Date: 09/23/20211999 FAX #: Reason: RUQ PAIN, VOMITING EXAMS: CPT CODE:[id number] CT ABD PELVIS W/CONT 13884 <Continued> abdominal small bowel loops may relate to incomplete luminal distention or enteritis. 2. 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 No obstruction. at 2048 Reported and signed by: Juan Juarez M.D. CC: Raffaele Levi MD Technologist:RT Wicho(R)(CT) CTDI: DLP: Trnscb Date/Time: 09/23/2021 (2048) [email or web address] Orig Print D/T: S: 09/23/2021 (2049) PAGE 2 Signed ReportCOMP. METABOLIC PANEL (20012)2021-09-14 03:57:44 Test Item Value Reference Range Interpretation Comments NA (test code = 132 mmol/L 135-145 L 0289455067) K (test code = 4.1 mmol/L 3.5-5.0 6149107558) CL (test code = 101 mmol/L 98-108 8151366319) CO2 TOTAL (test code = 23 mmol/L 23-31 3176769006) AGAP (test code = 2-16 1407875122) BUN (test code = 23 mg/dL 7-23 8312654438) GLUCOSE (test code = 97 mg/dL 70-110 6340239162) CREATININE (test code = 1.48 mg/dL 0.60-1.25 H 6516012457) TOTAL BILI (test code = 0.3 mg/dL 0.1-1.5 1663198967) CALCIUM (test code = 9.0 mg/dL 8.6-10.6 4140177920) T PROTEIN (test code = 6.2 g/dL 6.3-8.2 L 3593323297) ALBUMIN (test code = 3.7 g/dL 3.5-5.0 5328142164) ALK PHOS (test code = 82 U/L 34-122 0739682377) ALTv (test code = 21 U/L 5-50 1742-6) AST(SGOT) (test code = 20 U/L 13-40 1036766544) eGFR (test code = mL/min/1.73m2 5076122712) GILBERTO (test code = GILBERTO) Association of [...] tests). Lab Interpretation Abnormal (test code = 03721-0) [facility] WITH [id number] 03:52:42 Test Item Value Reference Range Interpretation [...] RDW-SD (test code = 47.2 fL 38.5-51.6 26927-5) RDW-CV (test code = 14.0 % 12.1-15.4 788-0) PLT (test code = See_Comment H [Automated 777-3) message] The sy stem which generated this result transmitted reference range : 150 - 328 10*3/ ?L. The reference r meredith was not used to interpret this result as normal/abnormal . MPV (test code = 9.2 fL 9.8-13.0 L 44275-0) NRBC/100 WBC (test See_Comment [Automat ed code = 9365125151) message] The system which generated this result transmitted reference range : 0.0 - 10.0 /100 WBCs. The refer ence range was not u sed to interpret th is result as normal/abnormal . NRBC x10^3 (test code <0.01 See_Comment [Auto mated = 3059681260) message] The s ystem which generated this result transmitted reference range : 10*3/?L. The reference range was not used to interpret this result as normal/abnormal . GRAN MAT (NEUT) % 61.3 % (test code = 770-8) IMM GRAN % (test code 0.20 % = 6673856899) LYMPH % (test code = 23.1 % 736-9) MONO % (test code = 13.7 % 5905-5) EOS % (test code = 1.5 % 713-8) BASO % (test code = 0.2 % 706-2) GRAN MAT x10^3(ANC) 2.78 10*3/uL 1.99-6.95 (test code = 1718086280) IMM GRAN x10^3 (test <0.03 0.00-0.06 code = 7643450339) LYMPH x10^3 (test code 1.05 10*3/uL 1.09-3.23 L = 731-0) MONO x10^3 (test code 0.62 10*3/uL 0.36-1.02 = 742-7) EOS x10^3 (test code = 0.07 10*3/uL 0.06-0.53 711-2) BASO x10^3 (test code <0.03 0.01-0.09 = 704-7) Lab Interpretation Abnormal (test code = 74849-6) [id number] 13:36:34 Test Item Value Reference Interpretation Comments Range TROPONIN I (test 0.001 ng/mL See_Comment [Automated code = 4135223529) message] The system which generated this result [...] biotin. Lab Interpretation Normal (test code = 12949-9) [facility] [id number] 13:36:34 Test Item Value Reference Range Interpretation Comments NT-proBNP (test code 79 pg/mL See_Comment [Autom ated = 6533612722) message] The system which generated this result transmitted reference range : <=125. The reference range was not used to interpret this result as normal/abnormal . GILBERTO (test code = GILBERTO) Biotin has been reported to cause a negative bias, interpret results relative to patient's use of biotin. Lab Interpretation Normal (test code = 93247-9) [facility] (NA, K, CL, CO2, GLUCOSE, BUN, CREATININE, CA)2021-09-12 13:24:32 Test Item Value Reference Range Interpretation Comments NA (test code = 134 mmol/L 135-145 L 6840862142) K (test code = 4.3 mmol/L 3.5-5.0 0629811583) CL (test code = 102 mmol/L 98-108 0658815491) CO2 TOTAL (test code = 23 mmol/L 23-31 7537533513) AGAP (test code = 2-16 2924542446) BUN (test code = 22 mg/dL 7-23 5366425801) GLUCOSE (test code = 89 mg/dL 70-110 8626044847) CREATININE (test code = 1.69 mg/dL 0.60-1.25 H 2945009260) CALCIUM (test code = 9.0 mg/dL 8.6-10.6 4945193526) eGFR (test code = mL/min/1.73m2 6448348021) GILBERTO (test code = GILBERTO) Association of [...] tests). Lab Interpretation Abnormal (test code = 08482-2) [facility] WITH [id number] 13:09:28 Test Item Value Reference Range Interpretation Comments WBC (test code = See_Comment [Automated 6743-2) message] The sy stem which generated this result transmitted reference range : 4.20 - 10.70 10*3/?L. The reference range was not used to interpret this result as normal/abnormal . RBC (test code = See_Comment L [Automated 864-8) message] The sy stem which generated this [...] RDW-SD (test code = 45.3 fL 38.5-51.6 46806-6) RDW-CV (test code = 13.9 % 12.1-15.4 788-0) PLT (test code = See_Comment H [Automated 777-3) message] The sy stem which generated this result transmitted reference range : 150 - 328 10*3/ ?L. The reference r meredith was not used to interpret this result as normal/abnormal . MPV (test code = 9.0 fL 9.8-13.0 L 34672-6) NRBC/100 WBC (test See_Comment [Automat ed code = 1815055741) message] The system which generated this result transmitted reference range : 0.0 - 10.0 /100 WBCs. The refer ence range was not u sed to interpret th is result as normal/abnormal . NRBC x10^3 (test code <0.01 See_Comment [Auto mated = 6057143197) message] The s ystem which generated this result transmitted reference range : 10*3/?L. The reference range was not used to interpret this result as normal/abnormal . GRAN MAT (NEUT) % 69.7 % (test code = 770-8) IMM GRAN % (test code 0.40 % = 1317129743) LYMPH % (test code = 16.9 % 736-9) MONO % (test code = 11.9 % 5905-5) EOS % (test code = 0.7 % 713-8) BASO % (test code = 0.4 % 706-2) GRAN MAT x10^3(ANC) 3.88 10*3/uL 1.99-6.95 (test code = 8837898165) IMM GRAN x10^3 (test <0.03 0.00-0.06 code = 2990344546) LYMPH x10^3 (test code 0.94 10*3/uL 1.09-3.23 L = 731-0) MONO x10^3 (test code 0.66 10*3/uL 0.36-1.02 = 742-7) EOS x10^3 (test code = 0.04 10*3/uL 0.06-0.53 L 711-2) BASO x10^3 (test code <0.03 0.01-0.09 = 704-7) Lab Interpretation Abnormal (test code = 18209-5) [facility] WITH [id number] 05:55:28 Test Item Value Reference Range Interpretation Comments WBC (test code = See_Comment [Automated 0990-2) message] The sy stem which generated this result transmitted reference range : 4.20 - 10.70 10*3/?L. The reference range was not used to interpret this result as normal/abnormal . RBC (test code = See_Comment L [Automated 019-8) message] The sy stem which generated this [...] RDW-SD (test code = 45.4 fL 38.5-51.6 98560-7) RDW-CV (test code = 13.8 % 12.1-15.4 788-0) PLT (test code = See_Comment [Automated 777-3) message] The sy stem which generated this result transmitted reference range : 150 - 328 10*3/ ?L. The reference r meredith was not used to interpret this result as normal/abnormal . MPV (test code = 9.2 fL 9.8-13.0 L 05429-2) NRBC/100 WBC (test See_Comment [Automat ed code = 7391880708) message] The system which generated this result transmitted reference range : 0.0 - 10.0 /100 WBCs. The refer ence range was not u sed to interpret th is result as normal/abnormal . NRBC x10^3 (test code <0.01 See_Comment [Auto mated = 8178433434) message] The s ystem which generated this result transmitted reference range : 10*3/?L. The reference range was not used to interpret this result as normal/abnormal . GRAN MAT (NEUT) % 60.6 % (test code = 770-8) IMM GRAN % (test code 0.20 % = 2951233193) LYMPH % (test code = 25.5 % 736-9) MONO % (test code = 10.5 % 5905-5) EOS % (test code = 2.8 % 713-8) BASO % (test code = 0.4 % 706-2) GRAN MAT x10^3(ANC) 3.23 10*3/uL 1.99-6.95 (test code = 1649233016) IMM GRAN x10^3 (test <0.03 0.00-0.06 code = 6447310113) LYMPH x10^3 (test code 1.36 10*3/uL 1.09-3.23 = 731-0) MONO x10^3 (test code 0.56 10*3/uL 0.36-1.02 = 742-7) EOS x10^3 (test code = 0.15 10*3/uL 0.06-0.53 711-2) BASO x10^3 (test code <0.03 0.01-0.09 = 704-7) Lab Interpretation Abnormal (test code = 33907-7) [facility] 05:48:47 Test Item Value Reference Range Interpretation Comments LIPASE (test code = 1584076960) 116 U/L 0-220 Lab Interpretation (test code = Normal 94146-6) [facility] MET[facility]OLIC PANEL (92847)2021-09-09 05:48:46 Test Item Value Reference Range Interpretation Comments NA (test code = 137 mmol/L 135-145 2260870193) K (test code = 4.0 mmol/L 3.5-5.0 1436253269) CL (test code = 108 mmol/L 98-108 6168145331) CO2 TOTAL (test code = 22 mmol/L 23-31 L 0316705702) AGAP (test code = 2-16 6377362188) BUN (test code = 23 mg/dL 7-23 4160136783) GLUCOSE (test code = 89 mg/dL 70-110 1607708832) CREATININE (test code = 1.28 mg/dL 0.60-1.25 H 3608571192) TOTAL BILI (test code = 0.4 mg/dL 0.1-1.2 8876877722) CALCIUM (test code = 8.9 mg/dL 8.6-10.6 5254356552) T PROTEIN (test code = 6.0 g/dL 6.3-8.2 L 0329788254) ALBUMIN (test code = 3.5 g/dL 3.5-5.0 3509162893) ALK PHOS (test code = 67 U/L 34-122 1296073109) ALTv (test code = 18 U/L 5-50 1742-6) AST(SGOT) (test code = 22 U/L 13-40 3216971779) eGFR (test code = mL/min/1.73m2 3069710106) GILBERTO (test code = GILBERTO) Association of [...] tests). Lab Interpretation Abnormal (test code = 00328-5) [facility]. METABOLIC PANEL (78029)2021-09-08 02:29:45 Test Item Value Reference Range Interpretation Comments NA (test code = 138 mmol/L 135-145 1539402732) K (test code = 4.3 mmol/L 3.5-5.0 6895699327) CL (test code = 106 mmol/L 98-108 4057314056) CO2 TOTAL (test code = 27 mmol/L 23-31 8942014979) AGAP (test code = 2-16 8648455220) BUN (test code = 22 mg/dL 7-23 9467881983) GLUCOSE (test code = 90 mg/dL 70-110 8306945804) CREATININE (test code = 1.36 mg/dL 0.60-1.25 H 1896699201) TOTAL BILI (test code = 0.4 mg/dL 0.1-1.8 2128091643) CALCIUM (test code = 9.2 mg/dL 8.6-10.6 3140816591) T PROTEIN (test code = 6.5 g/dL 6.3-8.2 6483291420) ALBUMIN (test code = 3.8 g/dL 3.5-5.0 7395981122) ALK PHOS (test code = 73 U/L 34-122 8019220855) ALTv (test code = 19 U/L 5-50 1742-6) AST(SGOT) (test code = 24 U/L 13-40 1083337922) eGFR (test code = mL/min/1.73m2 8973111428) GILBERTO (test code = GILBERTO) Association of [...] tests). Lab Interpretation Abnormal (test code = 30695-7) [facility] 02:29:45 Test Item Value Reference Range Interpretation Comments LIPASE (test code = 6624072043) 75 U/L 0-220 Lab Interpretation (test code = Normal 82303-7) [facility] WITH [id number] 02:15:21 Test Item Value Reference Range Interpretation Comments WBC (test code = See_Comment [Automated 3890-2) message] The sy stem which generated this result transmitted reference range : 4.20 - 10.70 10*3/?L. The reference range was not used to interpret this result as normal/abnormal . RBC (test code = See_Comment L [Automated 809-8) message] The sy stem which generated this [...] RDW-SD (test code = 45.9 fL 38.5-51.6 93935-3) RDW-CV (test code = 13.6 % 12.1-15.4 788-0) PLT (test code = See_Comment [Automated 777-3) message] The sy stem which generated this result transmitted reference range : 150 - 328 10*3/ ?L. The reference r meredith was not used to interpret this result as normal/abnormal . MPV (test code = 9.4 fL 9.8-13.0 L 02966-0) NRBC/100 WBC (test See_Comment [Automat ed code = 0059411642) message] The system which generated this result transmitted reference range : 0.0 - 10.0 /100 WBCs. The refer ence range was not u sed to interpret th is result as normal/abnormal . NRBC x10^3 (test code <0.01 See_Comment [Auto mated = 3972226785) message] The s ystem which generated this result transmitted reference range : 10*3/?L. The reference range was not used to interpret this result as normal/abnormal . GRAN MAT (NEUT) % 66.0 % (test code = 770-8) IMM GRAN % (test code 0.50 % = 7592774850) LYMPH % (test code = 20.0 % 736-9) MONO % (test code = 9.8 % 5905-5) EOS % (test code = 3.5 % 713-8) BASO % (test code = 0.2 % 706-2) GRAN MAT x10^3(ANC) 3.77 10*3/uL 1.99-6.95 (test code = 3494970974) IMM GRAN x10^3 (test 0.03 10*3/uL 0.00-0.06 code = 5572944073) LYMPH x10^3 (test code 1.14 10*3/uL 1.09-3.23 = 731-0) MONO x10^3 (test code 0.56 10*3/uL 0.36-1.02 = 742-7) EOS x10^3 (test code = 0.20 10*3/uL 0.06-0.53 711-2) BASO x10^3 (test code <0.03 0.01-0.09 = 704-7) Lab Interpretation Abnormal (test code = 81579-8) [facility] RegionalL[facility] Acid Whole [id number] 02:10:44 Test Item Value Reference Range Interpretation Comments LACTIC ACID (test code = 1.35 mmol/L 0.50-2.20 0922916360) Lab Interpretation (test code = Normal 84233-2) [facility] [id number] 15:31:19 Test Item Value Reference Range Interpretation Comments Case Report (test code Surgical Pathology ? ? = 7842607043) ?Case: [id number] ? Authorizing Provider: ?Bia Pedro MD ?Collected: ? 09/03/2021 0801 ?Ordering Location: ? ? [facility] OR ? Received: ?09/03/2021 0842 ? Department ? Pathologist: ? Shaneka Douglas MD ? Specimen: ? ?ILEUM, Ileostomy ( staple ?end proximal ) ? Final Diagnosis (test r7zhaNXyKKBnj1tlFVImwQ code = 1998028571) FuZzEwMzNcZnRuYmpcdWMx IHtccnRmMVxlcGljOTYwMV tdlvMfNZXmmUTrZ7Yatrzd VYgdVQ6yMG7vbObulRCwjR DbAWKeCyOai4mib250dYFp o5csIYPDlkkbgAo9iOvhO1 6ey0I1EwivZ07uzLYsTHZ5 EIWoQIBocNBdILDsQZJ0AQ VavIPmA8gqELSvQJ0fxexh ZKejZDsoIVVbbTA0EKCaqS OxV3GgGYEoKYosUUXxkfx1 WuZwZo3rwQVvvPfgNCoyPM JkXHBsYWluXGZzMjBccGFy IEEuIElMRVVNLCBJTEVPU1 YEZBh1CWWcziIjJEXrEJ7d QkVOSUdOIElMRUFMIFRJU1 PELCHXDRUMRAADZ5CONB9A R52FAGsxYXPOW2xBXtGhIC 2DOVTAFggMU2OUTPVPOJWK RUxTLCBccGFyICAgICAgIC KNH28RBECVJD6QFFyVRFsr HWmXW1LVY74QZWHxfrusYB JcZnMyMiBTcmkgQmhhcmF0 oPuvY9I3jGWqCGOESvAHFC KgkisaPFS5f2ceePKxGWQv yJMbDgVzHAGcDCGzc6abFU VmbGFuZzEwMzNcZnRuYmpc mKYvRUNwOuBev1tap185bD Xka7wxYRNbYqS9sWJdAWGu wFgviih1lVfvPhRmHYGzq4 lzcyBcZmNoYXJzZXQwIEFy vOKkP100AKSaEJrdu8eqf7 AgNMXryKFuk0M1FFQDIZln CvJoU126l9jtz3bheoHujK J9TNXyHVI2VZhknzFukrP1 LAenzELqQgO2ZMwqnmJrOQ nsdiLquzTdOmm5JPXyX164 NTY7eAeat9nsMNW6YJKtDC MaHpcmFc4gpBQyC623CSRq SGAZUBQumEc6CGDvotZqlx OjwUACm255N155j2yhIOJo yzWxiGtTyxyqq0wvM535LW BhcGVydzEyMjQwXHBhcGVy rJE7EOEaWF6eczdlZDlbEM zaKPLtzcR4FYHjiEIaW4Wv WHTyYQ5zrekpQPH3XBlhWW CgCTJ0GpQsASQfh4Inhip1 DoKclh2pti47OOM1p9OnsG vzUXL2GQC1KcGqGo7llRYh OQWaLC5eXoJkjEPtRUQwru 32wSycMLrjqwUkfZ1sTgQu WZZjgCLqDERwLV5tiOHoDG GjcY0rkdzoRNDqTfObzzdz RGAcsPmdcgAlEi1chTnwYV X4MZsyA9urjW3sMqM4QDzy W6mjtT8qTTd8SRpckCF2FD ReoL7aRK6fhacjx2meAEvl HFfvPYQukkY2zdL9BHXumR YlG5GqmJ6ePOYxZV1yjnnh w4lsPSV8BGcvTZHyFPQ9Rk NaZFTzg9Vbeca2DuIrc2Ub kJKaZKjbJ97ut330ZXNlcq IfY8yqjRFjypsqtNCfnwzr HFldcmV9VBPkFEJhTTahLF YxXGZzMjBcbGFuZzEwMzNc aGljaFxmMVxkYmNoXGYxXG saA3byRcPrV0WqWAZbEmFh qFVkKRcejPW1VLQtGREav0 5hoBq9KUZjvatql2RqFMWi bFScbCUweG6bbwRad1rpAM GkHNVjFEHwZ3IcGVR4qWZt EDTehMStnAJ7LH0flfDaUC 1hZGUgYnkgcmVzaWRlbnRz FIBvNKowr8diPU0pTLAbyJ wqqO4kfXJ0ISOtx1wuoQTu gTOsp1rww7LgajPoGRfqSK JeBQhmTGQjIKZqLD9cBJWs pQElysZwi5L5EiljiSFebe imVgqmqpS2QEtezttrULSs JOtvV0qdWsLyYWUwgWlrMc egv3TjKIClZGYxHbwvjCEd fX0= Clinical Information 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] [id number]) Gross Description (test p8glwLPeQKFpdTLFEKQcUy code = [id number]) erudWhDQEhbAFaX2Zsabyg WMqkHA8qJJ4htHqfcIErjR OfUR2GOMCpKvTfHLUumADv ztXvMgPaKMVzzFMmhWQ8OQ FdRA8rlyfeLTamNTreXARa ffA9KXEwuJNjB4AtOTLrSQ 6ilxvpPSV4KVvxnL9utjBN TahmRz3ixVZbeJngYvCiQc NoYXJzZXQwXGZuaWwgQXJp VVh8kQ8KBczfEDE7YMTSIx hiRMJiMF3Ax5bqABGpdUDr AWX2ZLscbARgBMWpKEJbFI s8HSBpYOhpvWHiFL2lvErl CjuzcEuov3EswQWlZExqDQ MeQFHqUUpmTWDpNQ7ZRnNf LXmUJCYuTJQwEwH6ANi2SA PGGcIwOwBfELh9Fox4WaWp HZa4CId9KTkHVoXlRCY9Qa YgDdJ4TMX1KOYlXDtluQAb IFxcZiBBcmlhbCBcXGZzID PrSZghXaysCUezG48wzOaa sA9bVsQuDXVIQyGQAIVIKT 1peZNjSF2NZZYlUAatHESy pKHRWPZ7LK3mUBMYEcsroZ AnNRGikHzqJWbwjK6cQN5V AGf9nuJcGLTrGrIrI4CzL9 lzBE9gFFDwqeTkISQsnVDt ZCBmcmVzaCBhbmQgbGFiZW dyJKY7rKUsWATaCTFoJXFx JP12U9UiwhVfEOffKAheft JgFiDtNMHizYP6jJzjyEug d6J3s595XCRniDGlvTTqXD 7zYDOqg7qnoGXjJyImzhAt G56ze3ripRZrw5WxVTD6LU 7kwPbpkkZdGValIZ76SJ3k PJIfJPykHCEtb5SlZZf9Yf EqH76ltR0fvTYnH0RxUKR9 IDQuMiBjbSBpbiBkaWFtZX Otkevft2a3rVKvQLA7n89z ZJeeJvuidPQaBkWsH64eEA jzzdDcUJsnyGtzCXK3aCnr IKWmhDMuJlQ3WL2bEnAtk0 5pc1kognZaflEjLUHhsLRj xSShVPBbq1GvxYvhciRgEI NolQ9kSDUoROSbzDEdqA2g biBpcyBvcGVuIHRvIHJldm NssYO5MA7tlWlymtYxtw1l m0x3MOQzkvHnESQiNTLdNN QcnNWml7UxZRFNZRNtUDLc hmPyxLs8JSYrRVG6dM5ayt IvnhDew9WjkOc4zUXjJJlk JBPyQMXnmg34O6doVSAiKO BhciANClxwYXIgDQpBMTog yUDbdEpcTRpqhTWrG9xzKH MpBAFaHLGdzrZesJz6GFSn kAScAX2NYEA7DYJ6c91pKR BaCMWiFUAjwhVuhPn2UMfn RILrOFiORnfsYe04WQgax1 RgfHmjliBxohPwGW70SLWt acHpuYUkLM8WTIYktfUODm H8dEorIOh2YFW7KUnrCFA0 jX9im5xpw1OlPnLXj0Ozj9 TproQpr7P8JUGdsFmfiV6c WQ1pnlpvARSySQQ2b5JdNX HOKMphlLtxuW5uKKOyR69c a8MFm2MzIUOuJEndw1rlfD may0DujAUvHZnjCXJduJCv JUaufD1dIbMej0xklJg3NM epkbZ3SQGgqz9KNuulqH7h DmMma6auyJu9UKUHCvgcta E7l6jbxVgxy2TkzBQjUM0N Cn0= Disclaimer (test code = x3ppuYVwTQQhc5nrVTZhxX [id number]) FuZzEwMzNcZnRuYmpcdWMx MVxcjwYfZKcsk1RuO0LmNv AwMFxhbnNpXGRlZmxhbmcx XUUrJGE2frVqHPUpYQpvPM PoILxtPh2msCCbeYtxLsNd MURhi6mbvkHLUOgqIoLoT5 19DMBlGDkle9nuh7DvIELy dROzf0Q9ULQHnpmbfYk5oN udL01mw5H5NrvjA2tfGPWb NZBjX7AcEX8gQDFgAnv9CF G8BXN9XLLySSItN3WqIK4g GFScpGQdCFe6d1ejdBqxMA LxCTS1d9fsIUobywIvWP9l of1pqLi5o4wxesMqDMZgCJ KsiKRISGLsU5QqwFgsLn9a tPu2cUagThveMDZ9Jxd3RT 4nic34ifv4cErxQKOejwbw XpG4MTqpPXFafiziJHw8NO xkRETbzXB8IBXxqSEvK1Cw HREhKD9xqga7HAJ9TAbeEI QoYpX9JZVhbFNkZPTxrOyb YZqaz411SZV6EsNsDE2pZ1 Yix2E5dF3iiUUcUABwaWOv QrBhXIJomx8mlVJcEQzic8 FtCCK0pnO4zKBxpXKlNFDc RR92Aqcgi9DjDmdrf9SvV0 8juEY9JUopc0knAI3cHrJ6 tqGpLNxev0ktcY7dAvS3BF rlFJ7qCO3pLOQuuQ7pdlno XHBnYnJkcmhlYWRccGdicm QkRm3haDbmGRI4XUasX6hj kZ1lKgP8AEugX1xjwM1sTK e7JUkbdRX2IBFeyC2lBE1b sbvtg2kxOAbjAQhcMJMqab K9wqR1IOLulQYnT5MpnL1s DMFwLJ4qjdpay4jqQUP2FI gaZDCbCHD4CvJtSOVlz1Tk yvt0DtAit1XalEPbCLnmN6 8tx601YNRczcYvJ7bexZNl sehxdFHyntgtAIrhtfW7KP CugjBph0NeBGMkEUK5BRuj AHtfyOLyMQDflVslt9rxC1 RscGFyXHBsYWluXGYxXGZz MjBcbGFuZzEwMzNcaGljaF ezSAipJzStAYZqOFkmW1bp RwWcH7AoQHBhHhNmmCGqY1 ggVGhpcyByZXBvcnQgbWF5 APvwN2f6HOOunuGltUf8lp SqIpXyUBAsKDB1LEjnhEPj FWSbe9OntjwdoLFrOs0aqN IgQSXugY4rUWVuYJXmSTlb WS9ksTz2OOWAwXJrjOGwGs DCUXJrCT62fiVnOIJMihkm u9E3VBzyUHGqv2ZgzEYiD5 iqk8RaWWXif80lKH3dg3W0 k0sjANI7ZZ6ip6NuOLXwiU QanTPzYRIbn0Saryztn2Cj GCMqpjFul1PeGPHxqhCimS ZbNCKiytBidj8clxAoWMJf ROLbR3SyraaqtNymzrFaLV Wbou1jxjOvQOL9QDTUBHTv QDBls4TgcL8laNFCZIZ9cL Rzok6virPDiHWrTGNbuy88 ZZDfRC9rC2rsSHDiJLFpkl OarEJay3WeGOWbnLE8zLCz FA8BJrXBw46iKKPbYOTXne AfQGGjvOeqhPN5uzB2cH4a IChGREEpLlx+IFRoZSBGRE WnBH5wgtDqs2VpbiGzlFsb AKIosKTeg2NkzQOrp8PluV lsi3WneYWxvCJeGV1iDYIn clxwYXIgVVRNQiBMYWJvcm E3b4NxCLHcISNdZIX6vQun ati0MTRfcF2ePRIjW5kmge hxSWwsFMWjh2ZuwV5cuNLK lSFno9KzgDUxyDQRnZPqVW 9fsqHsEGwKYYyMGEL3iySm UPFpo0HdTMniH2klR57rpM ctgJh6eII4LCF0iL7yYkr+ IFxwYXJccGFyIEFwcHJvcH DqNKSixQwuwoTsA0AcwePh bH2wvTGgzrZyTF3vWO7dG4 J1bFTvSEOcphOlw4pfVOss dmUgYmVlbiByZXZpZXdlZC Uhi2JwXPghDMT5YHmedpIo bmNsdWRpbmcgSCZFLCBTcG IiaPHoDZI5OZbivaOsakUi MZ2ppN3spRuqzD8mgFEazP R9fusxATZoVEQawCocQNWf GC1iuVYdWFTgxgIIkGfiuT AxhM4jU2FdEKOeQSUfrs8w JOEqiX8zVRxgm7YqhukrZE YrQIVgKJUbkdJplg9rLBUq lKRSCP7LAWmfkDMvq9Rknc EzM1nITUG1WVUmQxKiYjcq CJOpwVNxeKXxKWNslp92CJ QylU9mjXhqYPCheR9ilV0e jBgooC2vJuJzIqZwKVxyAF 2vRRQeV0warIVgYZRaFLCj I4moSfBxrW4bgMzwRJgeGg WfGnEgELzmUBZ1aU== Embedded Images (test code = 2554471806) [facility] [id number] 09:01:06 Test Item Value Reference Range Interpretation Comments Blood Culture-Aerobic No organisms No growth Previo us (test code = 76720-6) isolated prelim inary verified result was Culture In Progress on 08/31/2021 at 060 1 CSTPrevious preliminary verified result was No growth a t 24 hours on 09/01/2021 at 030 1 CSTPrevious preliminary verified result was No growth a t 48 hours on 09/02/2021 at 03 01 CSTPrevious preliminary verified result was No growth a t 72 hours on 09/03/2021 at 03 01 COST ACCOUNTING ANALYST Blood No organisms No growth Previous Culture-Anaerobic isolated preliminar y (test code = 18165-4) verifi ed result was Culture In Progress on 08/31/2021 at 060 1 CSTPrevious preliminary verified result was No growth a t 24 hours on 09/01/2021 at 030 1 CSTPrevious preliminary verified result was No growth a t 48 hours on 09/02/2021 at 03 01 CSTPrevious preliminary verified result was No growth a t 72 hours on 09/03/2021 at 03 01 COST ACCOUNTING ANALYST Lab Interpretation Normal (test code = 87784-8) [facility] METABOLIC PANEL (NA, K, CL, CO2, GLUCOSE, BUN, CREATININE, CA)2021-09-04 13:22:54 Test Item Value Reference Range Interpretation Comments NA (test code = 132 mmol/L 135-145 L 7822583408) K (test code = 4.3 mmol/L 3.5-5.0 6314224718) CL (test code = 104 mmol/L 98-108 6772805208) CO2 TOTAL (test code = 23 mmol/L 23-31 2286017269) AGAP (test code = 2-16 0956119341) BUN (test code = 15 mg/dL 7-23 4042457843) GLUCOSE (test code = 96 mg/dL 70-110 1153016533) CREATININE (test code = 1.42 mg/dL 0.60-1.25 H 0118370800) CALCIUM (test code = 8.7 mg/dL 8.6-10.6 4546926333) eGFR (test code = mL/min/1.73m2 3075505024) GILBERTO (test code = GILBERTO) Association of [...] tests). Lab Interpretation Abnormal (test code = 66091-1) [facility] METABOLIC PANEL (NA, K, CL, CO2, GLUCOSE, BUN, CREATININE, CA)2021-09-04 13:22:54 Test Item Value Reference Range Interpretation Comments NA (test code = 132 mmol/L 135-145 L 0824888681) K (test code = 4.3 mmol/L 3.5-5.0 1498227845) CL (test code = 104 mmol/L 98-108 8070242945) CO2 TOTAL (test code = 23 mmol/L 23-31 2054121891) AGAP (test code = 2-16 1751129071) BUN (test code = 15 mg/dL 7-23 2412369418) GLUCOSE (test code = 96 mg/dL 70-110 8149005303) CREATININE (test code = 1.42 mg/dL 0.60-1.25 H 1379759806) CALCIUM (test code = 8.7 mg/dL 8.6-10.6 2392821699) eGFR (test code = mL/min/1.73m2 6680801835) GILBERTO (test code = GILBERTO) Association of [...] tests). Lab Interpretation Abnormal (test code = 09140-6) [facility] CULTURE [id number] 17:16:36 Test Item Value Reference Range Interpretation Comments Blood Culture Coagulase negative Addition al Workup (test Staphylococcus work-up perfo rmed code = 600-7) only per reque st. Culture plate(s ) will be saved until this date : 09/08/21 Gram stain Isolated from aerobic (test code = bottle Gram positive 664-3) cocci in [facility] CULTURE [id number] 17:16:36 Test Item Value Reference Range Interpretation Comments Blood Culture Coagulase negative Addition al Workup (test Staphylococcus work-up perfo rmed code = 600-7) only per reque st. Culture plate(s ) will be saved until this date : 09/08/21 Gram stain Isolated from aerobic (test code = bottle Gram positive 664-3) cocci in [facility] Culture - Peripheral Vein # 17:16:26 Test Item Value Reference Range Interpretation Comments Blood Culture-Aerobic Culture positive. No growth AA P revious (test code = 38641-3) See Blood Culture p reliminary Workup for verified result additional was Culture In information. Progress on 08/31/2021 at 060 1 COST ACCOUNTING ANALYST Blood No organisms No growth Previous Culture-Anaerobic isolated preliminar y (test code = 40866-8) verifi ed result was Culture In Progress on 09/01/2021 at 012 7 COST ACCOUNTING ANALYST Lab Interpretation Abnormal (test code = 72836-0) [facility] Culture - Peripheral Vein # 17:16:26 Test Item Value Reference Range Interpretation Comments Blood Culture-Aerobic Culture positive. No growth AA P revious (test code = 35840-8) See Blood Culture p reliminary Workup for verified result additional was Culture In information. Progress on 08/31/2021 at 060 1 COST ACCOUNTING ANALYST Blood No organisms No growth Previous Culture-Anaerobic isolated preliminar y (test code = 38443-0) verifi ed result was Culture In Progress on 09/01/2021 at 012 7 COST ACCOUNTING ANALYST Lab Interpretation Abnormal (test code = 83232-5) [facility] METABOLIC PANEL (NA, K, CL, CO2, GLUCOSE, BUN, CREATININE, CA)2021-09-03 12:16:04 Test Item Value Reference Range Interpretation Comments NA (test code = 130 mmol/L 135-145 L 8231379878) K (test code = 4.1 mmol/L 3.5-5.0 2754969945) CL (test code = 103 mmol/L 98-108 0376132669) CO2 TOTAL (test code = 21 mmol/L 23-31 L 6736669621) AGAP (test code = 2-16 0293508362) BUN (test code = 14 mg/dL 7-23 9532098564) GLUCOSE (test code = 90 mg/dL 70-110 7675766300) CREATININE (test code = 1.28 mg/dL 0.60-1.25 H 4541759976) CALCIUM (test code = 8.8 mg/dL 8.6-10.6 9843406494) eGFR (test code = mL/min/1.73m2 3691357949) GILBERTO (test code = GILBERTO) Association of [...] tests). Lab Interpretation Abnormal (test code = 76607-1) [facility] METABOLIC PANEL (NA, K, CL, CO2, GLUCOSE, BUN, CREATININE, CA)2021-09-03 12:16:04 Test Item Value Reference Range Interpretation Comments NA (test code = 130 mmol/L 135-145 L 0860873762) K (test code = 4.1 mmol/L 3.5-5.0 1216306032) CL (test code = 103 mmol/L 98-108 9656729077) CO2 TOTAL (test code = 21 mmol/L 23-31 L 4400668909) AGAP (test code = 2-16 4760039710) BUN (test code = 14 mg/dL 7-23 5489419639) GLUCOSE (test code = 90 mg/dL 70-110 4876376618) CREATININE (test code = 1.28 mg/dL 0.60-1.25 H 2010488104) CALCIUM (test code = 8.8 mg/dL 8.6-10.6 2814685526) eGFR (test code = mL/min/1.73m2 7026528861) GILBERTO (test code = GILBERTO) Association of [...] tests). Lab Interpretation Abnormal (test code = 95636-5) [facility] WITHOUT [id number] 11:53:39 Test Item Value Reference Range Interpretation Comments WBC (test code = 6690-2) See_Comment [A utomated message] The system [employer] generated this result transmit dain reference range : 4.20 - 10.70 10*3/?L. The reference range was not used to interpret this result as normal/abnormal . RBC (test code = 789-8) See_Comment L [Au tomated message] The system [employer] generated this result transmit dain reference range [...] 777-3) See_Comment [Au tomated message] The system [employer] generated this result transmit dain reference range : 150 - 328 10*3/?L. The reference range was not used to interpret this result as normal/abnormal . MPV (test code = 10.1 fL 9.8-13.0 49577-4) RDW-CV (test code = 13.5 % 12.1-15.4 788-0) RDW-SD (test code = 44.6 fL 38.5-51.6 35520-5) NRBC x10^3 (test code = <0.01 See_Comment [Au tomated message] 8371166942) The system [employer] generated this result transmit dain reference range : 10*3/?L. The reference range was not used to interpret this result as normal/abnormal . NRBC/100 WBC (test code See_Comment [Au tomated message] = 6709461698) The system [employer] generated this result transmit dain reference range : 0.0 - 10.0 /100 WBC s. The reference r meredith was not used to interpret this result as normal/abnormal . IPF % (test code = 1246820333) Lab Interpretation (test Abnormal code = 21273-5) [facility] WITHOUT [id number] 11:53:39 Test Item Value Reference Range Interpretation Comments WBC (test code = 6690-2) See_Comment [A utomated message] The system [employer] generated this result transmit dain reference range : 4.20 - 10.70 10*3/?L. The reference range was not used to interpret this result as normal/abnormal . RBC (test code = 789-8) See_Comment L [Au tomated message] The system [employer] generated this result transmit dain reference range [...] 777-3) See_Comment [Au tomated message] The system [employer] generated this result transmit dain reference range : 150 - 328 10*3/?L. The reference range was not used to interpret this result as normal/abnormal . MPV (test code = 10.1 fL 9.8-13.0 10950-7) RDW-CV (test code = 13.5 % 12.1-15.4 788-0) RDW-SD (test code = 44.6 fL 38.5-51.6 46680-5) NRBC x10^3 (test code = <0.01 See_Comment [Au tomated message] 5850772305) The system [employer] generated this result transmit dain reference range : 10*3/?L. The reference range was not used to interpret this result as normal/abnormal . NRBC/100 WBC (test code See_Comment [Au tomated message] = 7446344234) The system [employer] generated this result transmit dain reference range : 0.0 - 10.0 /100 WBC s. The reference r meredith was not used to interpret this result as normal/abnormal . IPF % (test code = 2325305485) Lab Interpretation (test Abnormal code = 70053-4) [facility] METABOLIC PANEL (NA, K, CL, CO2, GLUCOSE, BUN, CREATININE, CA)2021-09-02 12:06:01 Test Item Value Reference Range Interpretation Comments NA (test code = 132 mmol/L 135-145 L 4664360139) K (test code = 4.4 mmol/L 3.5-5.0 3592271271) CL (test code = 106 mmol/L 98-108 6851385502) CO2 TOTAL (test code = 22 mmol/L 23-31 L 1380078934) AGAP (test code = 2-16 3323861935) BUN (test code = 16 mg/dL 7-23 0976083656) GLUCOSE (test code = 83 mg/dL 70-110 3709711972) CREATININE (test code = 1.33 mg/dL 0.60-1.25 H 0863235512) CALCIUM (test code = 8.8 mg/dL 8.6-10.6 9260867468) eGFR (test code = mL/min/1.73m2 1787171002) GILBERTO (test code = GILBERTO) Association of [...] tests). Lab Interpretation Abnormal (test code = 02152-2) [facility] METABOLIC PANEL (NA, K, CL, CO2, GLUCOSE, BUN, CREATININE, CA)2021-09-02 12:06:01 Test Item Value Reference Range Interpretation Comments NA (test code = 132 mmol/L 135-145 L 3950386206) K (test code = 4.4 mmol/L 3.5-5.0 1766402452) CL (test code = 106 mmol/L 98-108 8563311632) CO2 TOTAL (test code = 22 mmol/L 23-31 L 0162941641) AGAP (test code = 2-16 3819481785) BUN (test code = 16 mg/dL 7-23 7433902700) GLUCOSE (test code = 83 mg/dL 70-110 6390578802) CREATININE (test code = 1.33 mg/dL 0.60-1.25 H 8783481017) CALCIUM (test code = 8.8 mg/dL 8.6-10.6 3172287264) eGFR (test code = mL/min/1.73m2 3625397364) GILBERTO (test code = GILBERTO) Association of [...] tests). Lab Interpretation Abnormal (test code = 50402-7) [facility] METABOLIC PANEL (NA, K, CL, CO2, GLUCOSE, BUN, CREATININE, CA)2021-09-01 21:55:22 Test Item Value Reference Range Interpretation Comments NA (test code = 130 mmol/L 135-145 L 1392394492) K (test code = 4.2 mmol/L 3.5-5.0 8433460031) CL (test code = 103 mmol/L 98-108 0460689346) CO2 TOTAL (test code = 20 mmol/L 23-31 L 4506302906) AGAP (test code = 2-16 1700038040) BUN (test code = 20 mg/dL 7-23 8182567153) GLUCOSE (test code = 106 mg/dL 70-110 0318914583) CREATININE (test code = 1.51 mg/dL 0.60-1.25 H 5277087146) CALCIUM (test code = 8.5 mg/dL 8.6-10.6 L 3370639285) eGFR (test code = mL/min/1.73m2 6798044305) GILBERTO (test code = GILBERTO) Association of [...] tests). Lab Interpretation Abnormal (test code = 96253-8) [facility] METABOLIC PANEL (NA, K, CL, CO2, GLUCOSE, BUN, CREATININE, CA)2021-09-01 21:55:22 Test Item Value Reference Range Interpretation Comments NA (test code = 130 mmol/L 135-145 L 2992265237) K (test code = 4.2 mmol/L 3.5-5.0 0991150448) CL (test code = 103 mmol/L 98-108 3600529240) CO2 TOTAL (test code = 20 mmol/L 23-31 L 4371947853) AGAP (test code = 2-16 6334165763) BUN (test code = 20 mg/dL 7-23 7574999564) GLUCOSE (test code = 106 mg/dL 70-110 4825425151) CREATININE (test code = 1.51 mg/dL 0.60-1.25 H 0985857286) CALCIUM (test code = 8.5 mg/dL 8.6-10.6 L 6465557538) eGFR (test code = mL/min/1.73m2 2378327205) GILBERTO (test code = GILBERTO) Association of [...] tests). Lab Interpretation Abnormal (test code = 45932-8) [facility] POSITIVE BLOOD PATHOGENS DNA [id number] 10:31:32 Test Item Value Reference Range Interpretation Comments Coagulase Negative Positive Negative, See A Staphylococcus (test Comment/Narrative code = 36177-0) GILBERTO (test code = GILBERTO) Coagulase negative [...] contact the Antimicrobial Stewardship Program with questions.Pager: ?[phone] Testing included eleven identification and three resistance marker targets. Lab Interpretation Abnormal (test code = 92784-7) [facility] POSITIVE BLOOD PATHOGENS DNA [id number] 10:31:32 Test Item Value Reference Range Interpretation Comments Coagulase Negative Positive Negative, See A Staphylococcus (test Comment/Narrative code = 10029-8) GILBERTO (test code = GILBERTO) Coagulase negative [...] contact the Antimicrobial Stewardship Program with questions.Pager: ?[phone] Testing included eleven identification and three resistance marker targets. Lab Interpretation Abnormal (test code = 89436-2) [facility] (NA, K, CL, CO2, GLUCOSE, BUN, CREATININE, CA)2021-09-01 08:38:47 Test Item Value Reference Range Interpretation Comments NA (test code = 130 mmol/L 135-145 L 3525146036) K (test code = 4.0 mmol/L 3.5-5.0 1225563768) CL (test code = 105 mmol/L 98-108 9506963736) CO2 TOTAL (test code = 20 mmol/L 23-31 L 3010114589) AGAP (test code = 2-16 4456595907) BUN (test code = 21 mg/dL 7-23 9459333262) GLUCOSE (test code = 88 mg/dL 70-110 5951984600) CREATININE (test code = 1.31 mg/dL 0.60-1.25 H 3756300568) CALCIUM (test code = 8.5 mg/dL 8.6-10.6 L 0709459359) eGFR (test code = mL/min/1.73m2 5891100222) GILBERTO (test code = GILBERTO) Association of [...] tests). Lab Interpretation Abnormal (test code = 74313-4) [facility] METABOLIC PANEL (NA, K, CL, CO2, GLUCOSE, BUN, CREATININE, CA)2021-09-01 08:38:47 Test Item Value Reference Range Interpretation Comments NA (test code = 130 mmol/L 135-145 L 0111361973) K (test code = 4.0 mmol/L 3.5-5.0 8624359743) CL (test code = 105 mmol/L 98-108 7055526582) CO2 TOTAL (test code = 20 mmol/L 23-31 L 4949405096) AGAP (test code = 2-16 7447077901) BUN (test code = 21 mg/dL 7-23 8027922767) GLUCOSE (test code = 88 mg/dL 70-110 4821545693) CREATININE (test code = 1.31 mg/dL 0.60-1.25 H 2463151948) CALCIUM (test code = 8.5 mg/dL 8.6-10.6 L 5829156188) eGFR (test code = mL/min/1.73m2 0114309580) GILBERTO (test code = GILBERTO) Association of [...] tests). Lab Interpretation Abnormal (test code = 74855-9) [facility] WITH [id number] 08:13:43 Test Item Value Reference Range Interpretation Comments WBC (test code = See_Comment [Automated 9418-2) message] The sy stem which generated this result transmitted reference range : 4.20 - 10.70 10*3/?L. The reference range was not used to interpret this result as normal/abnormal . RBC (test code = See_Comment L [Automated 805-8) message] The sy stem which generated this [...] RDW-SD (test code = 43.0 fL 38.5-51.6 58159-1) RDW-CV (test code = 13.7 % 12.1-15.4 788-0) PLT (test code = See_Comment [Automated 777-3) message] The sy stem which generated this result transmitted reference range : 150 - 328 10*3/ ?L. The reference r meredith was not used to interpret this result as normal/abnormal . MPV (test code = 9.9 fL 9.8-13.0 41588-2) NRBC/100 WBC (test See_Comment [Automat ed code = 0581007227) message] The system which generated this result transmitted reference range : 0.0 - 10.0 /100 WBCs. The refer ence range was not u sed to interpret th is result as normal/abnormal . NRBC x10^3 (test code <0.01 See_Comment [Auto mated = 3577241840) message] The s ystem which generated this result transmitted reference range : 10*3/?L. The reference range was not used to interpret this result as normal/abnormal . GRAN MAT (NEUT) % 48.2 % (test code = 770-8) IMM GRAN % (test code 0.40 % = 6581044154) LYMPH % (test code = 39.5 % 736-9) MONO % (test code = 9.0 % 5905-5) EOS % (test code = 2.3 % 713-8) BASO % (test code = 0.6 % 706-2) GRAN MAT x10^3(ANC) 2.35 10*3/uL 1.99-6.95 (test code = 5910701799) IMM GRAN x10^3 (test <0.03 0.00-0.06 code = 4414067451) LYMPH x10^3 (test code 1.93 10*3/uL 1.09-3.23 = 731-0) MONO x10^3 (test code 0.44 10*3/uL 0.36-1.02 = 742-7) EOS x10^3 (test code = 0.11 10*3/uL 0.06-0.53 711-2) BASO x10^3 (test code 0.03 10*3/uL 0.01-0.09 = 704-7) Lab Interpretation Abnormal (test code = 30360-9) [facility] WITH [id number] 08:13:43 Test Item Value Reference Range Interpretation [...] RDW-SD (test code = 43.0 fL 38.5-51.6 79284-1) RDW-CV (test code = 13.7 % 12.1-15.4 788-0) PLT (test code = See_Comment [Automated 777-3) message] The sy stem which generated this result transmitted reference range : 150 - 328 10*3/ ?L. The reference r meredith was not used to interpret this result as normal/abnormal . MPV (test code = 9.9 fL 9.8-13.0 62980-5) NRBC/100 WBC (test See_Comment [Automat ed code = 9179851258) message] The system which generated this result transmitted reference range : 0.0 - 10.0 /100 WBCs. The refer ence range was not u sed to interpret th is result as normal/abnormal . NRBC x10^3 (test code <0.01 See_Comment [Auto mated = 7643905636) message] The s ystem which generated this result transmitted reference range : 10*3/?L. The reference range was not used to interpret this result as normal/abnormal . GRAN MAT (NEUT) % 48.2 % (test code = 770-8) IMM GRAN % (test code 0.40 % = 1961118924) LYMPH % (test code = 39.5 % 736-9) MONO % (test code = 9.0 % 5905-5) EOS % (test code = 2.3 % 713-8) BASO % (test code = 0.6 % 706-2) GRAN MAT x10^3(ANC) 2.35 10*3/uL 1.99-6.95 (test code = 1178700737) IMM GRAN x10^3 (test <0.03 0.00-0.06 code = 7455069251) LYMPH x10^3 (test code 1.93 10*3/uL 1.09-3.23 = 731-0) MONO x10^3 (test code 0.44 10*3/uL 0.36-1.02 = 742-7) EOS x10^3 (test code = 0.11 10*3/uL 0.06-0.53 711-2) BASO x10^3 (test code 0.03 10*3/uL 0.01-0.09 = 704-7) Lab Interpretation Abnormal (test code = 72944-7) [facility] [id number] 06:37:20 Test Item Value Reference Range Interpretation Comments MAGNESIUM (test code = 2757863303) 1.9 mg/dL 1.7-2.4 Lab Interpretation (test code = Normal 53507-4) [facility] [id number] 06:37:20 Test Item Value Reference Range Interpretation Comments MAGNESIUM (test code = 4667005383) 1.9 mg/dL 1.7-2.4 Lab Interpretation (test code = Normal 45130-7) [facility] METABOLIC PANEL (NA, K, CL, CO2, GLUCOSE, BUN, CREATININE, CA)2021-09-01 02:46:47 Test Item Value Reference Range Interpretation Comments NA (test code = 132 mmol/L 135-145 L 4640446843) K (test code = 4.0 mmol/L 3.5-5.0 8594385259) CL (test code = 102 mmol/L 98-108 6691500661) CO2 TOTAL (test code = 21 mmol/L 23-31 L 2397665861) AGAP (test code = 2-16 2413834761) BUN (test code = 24 mg/dL 7-23 H 5557510010) GLUCOSE (test code = 95 mg/dL 70-110 4666243161) CREATININE (test code = 1.40 mg/dL 0.60-1.25 H 8875535461) CALCIUM (test code = 8.6 mg/dL 8.6-10.6 5732268710) eGFR (test code = mL/min/1.73m2 4296316443) GILBERTO (test code = GILBERTO) Association of [...] tests). Lab Interpretation Abnormal (test code = 93094-0) [facility] (NA, K, CL, CO2, GLUCOSE, BUN, CREATININE, CA)2021-09-01 02:46:47 Test Item Value Reference Range Interpretation Comments NA (test code = 132 mmol/L 135-145 L [id number]) K (test code = 4.0 mmol/L 3.5-5.0 0509684568) CL (test code = 102 mmol/L 98-108 8534559066) CO2 TOTAL (test code = 21 mmol/L 23-31 L 6510790577) AGAP (test code = 2-16 2146702997) BUN (test code = 24 mg/dL 7-23 H 3209401922) GLUCOSE (test code = 95 mg/dL 70-110 3335196243) CREATININE (test code = 1.40 mg/dL 0.60-1.25 H 1754106640) CALCIUM (test code = 8.6 mg/dL 8.6-10.6 7368958418) eGFR (test code = mL/min/1.73m2 3437012266) GILBERTO (test code = GILBERTO) Association of [...] tests). Lab Interpretation Abnormal (test code = 65639-5) [facility] Acid Whole [id number] 12:49:48 Test Item Value Reference Range Interpretation Comments LACTIC ACID (test code = 2.02 mmol/L 0.50-2.20 QUE S [id number]) Lab Interpretation (test code = Normal 15968-1) [facility] Acid Whole [id number] 12:49:48 Test Item Value Reference Range Interpretation Comments LACTIC ACID (test code = 2.02 mmol/L 0.50-2.20 QUE S [id number]) Lab Interpretation (test code = Normal 68018-6) [facility] METABOLIC PANEL (NA, K, CL, CO2, GLUCOSE, BUN, CREATININE, CA)2021-08-31 12:29:06 Test Item Value Reference Range Interpretation Comments NA (test code = 129 mmol/L 135-145 L 6528884494) K (test code = 3.6 mmol/L 3.5-5.0 1325907970) CL (test code = 101 mmol/L 98-108 3678106374) CO2 TOTAL (test code = 18 mmol/L 23-31 L 6205179369) AGAP (test code = 2-16 6843490468) BUN (test code = 35 mg/dL 7-23 H 8410875641) GLUCOSE (test code = 97 mg/dL 70-110 7120374188) CREATININE (test code = 1.58 mg/dL 0.60-1.25 H 5584036264) CALCIUM (test code = 8.3 mg/dL 8.6-10.6 L 3905749450) eGFR (test code = mL/min/1.73m2 1142761050) GILBERTO (test code = GILBERTO) Association of [...] tests). Lab Interpretation Abnormal (test code = 01735-4) [facility] METABOLIC PANEL (NA, K, CL, CO2, GLUCOSE, BUN, CREATININE, CA)2021-08-31 12:29:06 Test Item Value Reference Range Interpretation Comments NA (test code = 129 mmol/L 135-145 L 7510552945) K (test code = 3.6 mmol/L 3.5-5.0 1483267954) CL (test code = 101 mmol/L 98-108 9497447910) CO2 TOTAL (test code = 18 mmol/L 23-31 L 4325111861) AGAP (test code = 2-16 7965406508) BUN (test code = 35 mg/dL 7-23 H 7837813299) GLUCOSE (test code = 97 mg/dL 70-110 4276898157) CREATININE (test code = 1.58 mg/dL 0.60-1.25 H 4063803779) CALCIUM (test code = 8.3 mg/dL 8.6-10.6 L 4944982469) eGFR (test code = mL/min/1.73m2 8891562564) GILBERTO (test code = GILBETRO) Association of Glomerular Filtration Rate (GFR) and [...] tests). Lab Interpretation Abnormal (test code = 51491-5) [facility] [id number] 07:42:44 Test Item Value Reference Range Interpretation Comments TSH (test code = See_Comment [Automated message] 6100218353) The system [employer] generated this result transmitted ref erence range: 0.45 - 4 .70 mIU/L. The refe rence range was not u sed to interpret this result as normal/abnor mal. Lab Interpretation (test Normal code = 99220-7) [facility] [id number] 07:42:44 Test Item Value Reference Range Interpretation Comments TSH (test code = See_Comment [Automated message] 1113759865) The system [employer] generated this result transmitted ref erence range: 0.45 - 4 .70 mIU/L. The refe rence range was not u sed to interpret this result as normal/abnor mal. Lab Interpretation (test Normal code = 87170-3) [facility] METABOLIC PANEL (NA, K, CL, CO2, GLUCOSE, BUN, CREATININE, CA)2021-08-31 07:40:43 Test Item Value Reference Range Interpretation Comments NA (test code = 129 mmol/L 135-145 L 8636675423) K (test code = 3.8 mmol/L 3.5-5.0 Slight 6626796197) hemolysis CL (test code = 102 mmol/L 98-108 3915116135) CO2 TOTAL (test code 18 mmol/L 23-31 L = 1446665990) AGAP (test code = 2-16 3834604988) BUN (test code = 46 mg/dL 7-23 H Slight 9733132110) hemolysis GLUCOSE (test code = 100 mg/dL 70-110 3809665484) CREATININE (test code 1.72 mg/dL 0.60-1.25 H = 2592103047) CALCIUM (test code = 8.5 mg/dL 8.6-10.6 L 9743012235) eGFR (test code = mL/min/1.73m2 6586938271) GILBERTO (test code = GILBERTO) Association of [...] tests). Lab Interpretation Abnormal (test code = 08528-9) [facility] METABOLIC PANEL (NA, K, CL, CO2, GLUCOSE, BUN, CREATININE, CA)2021-08-31 07:40:43 Test Item Value Reference Range Interpretation Comments NA (test code = 129 mmol/L 135-145 L 9311039777) K (test code = 3.8 mmol/L 3.5-5.0 Slight 4180254503) hemolysis CL (test code = 102 mmol/L 98-108 9029379902) CO2 TOTAL (test code 18 mmol/L 23-31 L = 7431225325) AGAP (test code = 2-16 6161411997) BUN (test code = 46 mg/dL 7-23 H Slight 1913859290) hemolysis GLUCOSE (test code = 100 mg/dL 70-110 6810400572) CREATININE (test code 1.72 mg/dL 0.60-1.25 H = 3386409053) CALCIUM (test code = 8.5 mg/dL 8.6-10.6 L 6483362812) eGFR (test code = mL/min/1.73m2 4476112320) GILBERTO (test code = GILBERTO) Association of [...] tests). Lab Interpretation Abnormal (test code = 61105-0) [facility] [id number] 07:08:01 Test Item Value Reference Range Interpretation Comments LACTIC ACID (test code = 1.96 mmol/L 0.50-2.20 QUE S 7265419941) Lab Interpretation (test code = Normal 09208-3) [facility] Acid Whole [id number] 07:08:01 Test Item Value Reference Range Interpretation Comments LACTIC ACID (test code = 1.96 mmol/L 0.50-2.20 QUE S 3537384100) Lab Interpretation (test code = Normal 95145-3) [facility] SERUM OR [id number] 06:33:43 Test Item Value Reference Range Interpretation Comments OSMOLALITY (test code = See_Comment [Au tomated message] 2892145996) The system [employer] generated this result transmitted ref erence range: 278 - 30 5 mOsm/kg. The re ference range was not u sed to interpret this result as normal/abnor mal. Lab Interpretation (test Normal code = 68333-0) [facility] OR [id number] 06:33:43 Test Item Value Reference Range Interpretation Comments OSMOLALITY (test code = See_Comment [Au tomated message] 5652006475) The system [employer] generated this result transmitted ref erence range: 278 - 30 5 mOsm/kg. The re ference range was not u sed to interpret this result as normal/abnor mal. Lab Interpretation (test Normal code = 89163-3) [facility] [id number] 04:28:44 Test Item Value Reference Interpretation Comments Range TROPONIN I (test 0.003 ng/mL See_Comment [Automated code = 3813362262) message] The system which generated this result [...] biotin. Lab Interpretation Normal (test code = 69396-3) [facility] [id number] 04:28:44 Test Item Value Reference Interpretation Comments Range TROPONIN I (test 0.003 ng/mL See_Comment [Automated code = 2818576988) message] The system which generated this result [...] biotin. Lab Interpretation Normal (test code = 63306-2) [facility] METABOLIC PANEL (NA, K, CL, CO2, GLUCOSE, BUN, CREATININE, CA)2021-08-31 04:07:42 Test Item Value Reference Range Interpretation Comments NA (test code = 125 mmol/L 135-145 L 0971266866) K (test code = 4.1 mmol/L 3.5-5.0 Slight 4270371839) hemolysis CL (test code = 100 mmol/L 98-108 2617590626) CO2 TOTAL (test code 17 mmol/L 23-31 L = 4544238120) AGAP (test code = 2-16 2768163483) BUN (test code = 52 mg/dL 7-23 H Slight 0677648994) hemolysis GLUCOSE (test code = 94 mg/dL 70-110 9831076266) CREATININE (test code 1.77 mg/dL 0.60-1.25 H = 5102870165) CALCIUM (test code = 8.2 mg/dL 8.6-10.6 L 9689097684) eGFR (test code = mL/min/1.73m2 7205704000) GILBERTO (test code = GILBERTO) Association of [...] tests). Lab Interpretation Abnormal (test code = 08830-3) [facility] METABOLIC PANEL (NA, K, CL, CO2, GLUCOSE, BUN, CREATININE, CA)2021-08-31 04:07:42 Test Item Value Reference Range Interpretation Comments NA (test code = 125 mmol/L 135-145 L 0670085187) K (test code = 4.1 mmol/L 3.5-5.0 Slight 2562684042) hemolysis CL (test code = 100 mmol/L 98-108 8081957783) CO2 TOTAL (test code 17 mmol/L 23-31 L = 8730714550) AGAP (test code = 2-16 2236066556) BUN (test code = 52 mg/dL 7-23 H Slight 3508605927) hemolysis GLUCOSE (test code = 94 mg/dL 70-110 2107095954) CREATININE (test code 1.77 mg/dL 0.60-1.25 H = 8709112613) CALCIUM (test code = 8.2 mg/dL 8.6-10.6 L 4396882219) eGFR (test code = mL/min/1.73m2 6733305155) GILBERTO (test code = GILBERTO) Association of [...] tests). Lab Interpretation Abnormal (test code = 53151-7) [facility] [id number] 00:22:59 Test Item Value Reference Interpretation Comments Range TROPONIN I (test 0.003 ng/mL See_Comment [Automated code = 4123318477) message] The system which generated this result [...] biotin. Lab Interpretation Normal (test code = 87802-6) [facility] [id number] 00:22:59 Test Item Value Reference Range Interpretation Comments NT-proBNP (test code 55 pg/mL See_Comment [Autom ated = 8288261999) message] The system which generated this result transmitted reference range : <=125. The reference range was not used to interpret this result as normal/abnormal . GILBERTO (test code = GILBERTO) Biotin has been reported to cause a negative bias, interpret results relative to patient's use of biotin. Lab Interpretation Normal (test code = 12191-3) [facility] [id number] 00:22:59 Test Item Value Reference Interpretation Comments Range TROPONIN I (test 0.003 ng/mL See_Comment [Automated code = 0450432733) message] The system which generated this result [...] biotin. Lab Interpretation Normal (test code = 78020-8) [facility] [id number] 00:22:59 Test Item Value Reference Range Interpretation Comments NT-proBNP (test code 55 pg/mL See_Comment [Autom ated = 7679759137) message] The system which generated this result transmitted reference range : <=125. The reference range was not used to interpret this result as normal/abnormal . GILBERTO (test code = GILBERTO) Biotin has been reported to cause a negative bias, interpret results relative to patient's use of biotin. Lab Interpretation Normal (test code = 51986-8) [facility]. METABOLIC PANEL ([id number])2021-08-31 00:07:17 Test Item Value Reference Range Interpretation Comments NA (test code = 126 mmol/L 135-145 L 9381478460) K (test code = 4.3 mmol/L 3.5-5.0 Slight 7371904626) hemolysis CL (test code = 96 mmol/L 98-108 L 1434793219) CO2 TOTAL (test code 18 mmol/L 23-31 L = 1079830111) AGAP (test code = 2-16 7158425829) BUN (test code = 58 mg/dL 7-23 H Slight 1133585664) hemolysis GLUCOSE (test code = 108 mg/dL 70-110 4776408077) CREATININE (test code 2.11 mg/dL 0.60-1.25 H = 4337025134) TOTAL BILI (test code 0.7 mg/dL 0.1-1.1 = 4158581483) CALCIUM (test code = 9.2 mg/dL 8.6-10.6 8954443653) T PROTEIN (test code 7.6 g/dL 6.3-8.2 = 7921852286) ALBUMIN (test code = 4.9 g/dL 3.5-5.0 8654035322) ALK PHOS (test code = 96 U/L 34-122 Slight 2374924732) hemolysis ALTv (test code = 27 U/L 5-50 1742-6) AST(SGOT) (test code 46 U/L 13-40 H Slight = 5221471973) hemolysis eGFR (test code = mL/min/1.73m2 4214581873) GILBERTO (test code = GILBERTO) Association of [...] tests). Lab Interpretation Abnormal (test code = 88749-6) [facility]. METABOLIC PANEL ([id number])2021-08-31 00:07:17 Test Item Value Reference Range Interpretation Comments NA (test code = 126 mmol/L 135-145 L 9444849014) K (test code = 4.3 mmol/L 3.5-5.0 Slight 8002210088) hemolysis CL (test code = 96 mmol/L 98-108 L 1797612234) CO2 TOTAL (test code 18 mmol/L 23-31 L = 7057752777) AGAP (test code = 2-16 4674103642) BUN (test code = 58 mg/dL 7-23 H Slight 8579857466) hemolysis GLUCOSE (test code = 108 mg/dL 70-110 3862220173) CREATININE (test code 2.11 mg/dL 0.60-1.25 H = 5593487837) TOTAL BILI (test code 0.7 mg/dL 0.1-1.1 = 8213758129) CALCIUM (test code = 9.2 mg/dL 8.6-10.6 9338008518) T PROTEIN (test code 7.6 g/dL 6.3-8.2 = 0622884409) ALBUMIN (test code = 4.9 g/dL 3.5-5.0 1702549043) ALK PHOS (test code = 96 U/L 34-122 Slight 6519509945) hemolysis ALTv (test code = 27 U/L 5-50 1742-6) AST(SGOT) (test code 46 U/L 13-40 H Slight = 9816248398) hemolysis eGFR (test code = mL/min/1.73m2 6762842503) GILBERTO (test code = GILBERTO) Association of [...] tests). Lab Interpretation Abnormal (test code = 21537-3) [facility] WITH [id number] 23:36:10 Test Item Value Reference Range Interpretation Comments WBC (test code = See_Comment [Automated 5386-2) message] The sy stem which generated this result transmitted reference range : 4.20 - 10.70 10*3/?L. The reference range was not used to interpret this result as normal/abnormal . RBC (test code = See_Comment [Automated 631-8) message] The sy stem which generated this [...] RDW-SD (test code = 41.7 fL 38.5-51.6 43992-8) RDW-CV (test code = 13.4 % 12.1-15.4 788-0) PLT (test code = See_Comment [Automated 723-3) message] The sy stem which generated this result transmitted reference range : 150 - 328 10*3/ ?L. The reference r meredith was not used to interpret this result as normal/abnormal . MPV (test code = 10.3 fL 9.8-13.0 34663-1) NRBC/100 WBC (test See_Comment [Automat ed code = 3507303755) message] The system which generated this result transmitted reference range : 0.0 - 10.0 /100 WBCs. The refer ence range was not u sed to interpret th is result as normal/abnormal . NRBC x10^3 (test code <0.01 See_Comment [Auto mated = 6265200377) message] The s ystem which generated this result transmitted reference range : 10*3/?L. The reference range was not used to interpret this result as normal/abnormal . GRAN MAT (NEUT) % 60.6 % (test code = 770-8) IMM GRAN % (test code 0.30 % = 1038509237) LYMPH % (test code = 29.1 % 736-9) MONO % (test code = 8.8 % 5905-5) EOS % (test code = 0.6 % 713-8) BASO % (test code = 0.6 % 706-2) GRAN MAT x10^3(ANC) 4.08 10*3/uL 1.99-6.95 (test code = 4822297305) IMM GRAN x10^3 (test <0.03 0.00-0.06 code = 8361649885) LYMPH x10^3 (test code 1.96 10*3/uL 1.09-3.23 = 731-0) MONO x10^3 (test code 0.59 10*3/uL 0.36-1.02 = 742-7) EOS x10^3 (test code = 0.04 10*3/uL 0.06-0.53 L 711-2) BASO x10^3 (test code 0.04 10*3/uL 0.01-0.09 = 704-7) Lab Interpretation Abnormal (test code = 53171-5) [facility] WITH [id number] 23:36:10 Test Item Value Reference Range Interpretation [...] RDW-SD (test code = 41.7 fL 38.5-51.6 38514-4) RDW-CV (test code = 13.4 % 12.1-15.4 788-0) PLT (test code = See_Comment [Automated 777-3) message] The sy stem which generated this result transmitted reference range : 150 - 328 10*3/ ?L. The reference r meredith was not used to interpret this result as normal/abnormal . MPV (test code = 10.3 fL 9.8-13.0 38452-4) NRBC/100 WBC (test See_Comment [Automat ed code = 5803581134) message] The system which generated this result transmitted reference range : 0.0 - 10.0 /100 WBCs. The refer ence range was not u sed to interpret th is result as normal/abnormal . NRBC x10^3 (test code <0.01 See_Comment [Auto mated = 0530175317) message] The s ystem which generated this result transmitted reference range : 10*3/?L. The reference range was not used to interpret this result as normal/abnormal . GRAN MAT (NEUT) % 60.6 % (test code = 770-8) IMM GRAN % (test code 0.30 % = 6483807755) LYMPH % (test code = 29.1 % 736-9) MONO % (test code = 8.8 % 5905-5) EOS % (test code = 0.6 % 713-8) BASO % (test code = 0.6 % 706-2) GRAN MAT x10^3(ANC) 4.08 10*3/uL 1.99-6.95 (test code = 6034070920) IMM GRAN x10^3 (test <0.03 0.00-0.06 code = 3574299132) LYMPH x10^3 (test code 1.96 10*3/uL 1.09-3.23 = 731-0) MONO x10^3 (test code 0.59 10*3/uL 0.36-1.02 = 742-7) EOS x10^3 (test code = 0.04 10*3/uL 0.06-0.53 L 711-2) BASO x10^3 (test code 0.04 10*3/uL 0.01-0.09 = 704-7) Lab Interpretation Abnormal (test code = 95230-5) [facility] SCREEN FOR GROUP [id number] 00:24:00 Test Item Value Reference Range Interpretation Comments POCT GP A STREP (test code = Negative Negative - Negative 88064-5) Lab Interpretation (test code = Normal 67068-2) [facility]2021-12-13 11:38:43 Test Item Value Reference Range Interpretation Comments PALB (test code = 32868-0) 25.2 mg/dL 18.0-45.0 Lab Interpretation (test code = Normal 79431-4) [facility]OL[facility] (NA, K, CL, CO2, GLUCOSE, BUN, CREATININE, CA)2021-08-05 11:30:59 Test Item Value Reference Range Interpretation Comments NA (test code = 140 mmol/L 135-145 8670717192) K (test code = 4.2 mmol/L 3.5-5.0 6911249336) CL (test code = 110 mmol/L 98-108 H 2277987212) CO2 TOTAL (test code = 27 mmol/L 23-31 8806436920) AGAP (test code = 2-16 0331456043) BUN (test code = 9 mg/dL 7-23 2831150504) GLUCOSE (test code = 86 mg/dL 70-110 8559208217) CREATININE (test code = 1.51 mg/dL 0.60-1.25 H 2884079245) CALCIUM (test code = 8.5 mg/dL 8.6-10.6 L 1576386178) eGFR (test code = mL/min/1.73m2 7839390112) GILBERTO (test code = GILBERTO) Association of [...] tests). Lab Interpretation Abnormal (test code = 23112-0) [facility]2021-12-13 11:30:59 Test Item Value Reference Range Interpretation Comments MAGNESIUM (test code = 1791325410) 2.0 mg/dL 1.7-2.4 Lab Interpretation (test code = Normal 22859-4) [facility]PH[facility]2021-12-13 11:30:59 Test Item Value Reference Range Interpretation Comments PHOSPHORUS (test code = 9262595490) 5.1 mg/dL 2.5-5.0 H Lab Interpretation (test code = Abnormal 46980-4) [facility]2021-[facility]-13 11:30:59 Test Item Value Reference Range Interpretation Comments ALBUMIN (test code = 5579897575) 3.1 g/dL 3.5-5.0 L Lab Interpretation (test code = Abnormal 12012-0) [facility] WITH [id number] 11:05:58 Test Item Value Reference Range Interpretation [...] RDW-SD (test code = 47.5 fL 38.5-51.6 43558-6) RDW-CV (test code = 14.0 % 12.1-15.4 788-0) PLT (test code = See_Comment [Automated 777-3) message] The sy stem which generated this result transmitted reference range : 150 - 328 10*3/ ?L. The reference r meredith was not used to interpret this result as normal/abnormal . MPV (test code = 9.5 fL 9.8-13.0 L 02996-0) NRBC/100 WBC (test See_Comment [Automat ed code = 1414179712) message] The system which generated this result transmitted reference range : 0.0 - 10.0 /100 WBCs. The refer ence range was not u sed to interpret th is result as normal/abnormal . NRBC x10^3 (test code <0.01 See_Comment [Auto mated = 2355186067) message] The s ystem which generated this result transmitted reference range : 10*3/?L. The reference range was not used to interpret this result as normal/abnormal . GRAN MAT (NEUT) % 52.5 % (test code = 770-8) IMM GRAN % (test code 0.30 % = 3842550469) LYMPH % (test code = 31.1 % 736-9) MONO % (test code = 11.7 % 5905-5) EOS % (test code = 3.9 % 713-8) BASO % (test code = 0.5 % 706-2) GRAN MAT x10^3(ANC) 2.03 10*3/uL 1.99-6.95 (test code = 8253090441) IMM GRAN x10^3 (test <0.03 0.00-0.06 code = 6498400204) LYMPH x10^3 (test code 1.20 10*3/uL 1.09-3.23 = 731-0) MONO x10^3 (test code 0.45 10*3/uL 0.36-1.02 = 742-7) EOS x10^3 (test code = 0.15 10*3/uL 0.06-0.53 711-2) BASO x10^3 (test code <0.03 0.01-0.09 = 704-7) Lab Interpretation Abnormal (test code = 55248-9) [facility] WITH [id number] 12:30:17 Test Item Value Reference Range Interpretation Comments WBC (test code = See_Comment L [Automated 4690-2) message] The sy stem which generated this [...] RDW-SD (test code = 49.2 fL 38.5-51.6 74185-8) RDW-CV (test code = 14.3 % 12.1-15.4 788-0) PLT (test code = See_Comment [Automated 777-3) message] The sy stem which generated this result transmitted reference range : 150 - 328 10*3/ ?L. The reference r meredith was not used to interpret this result as normal/abnormal . MPV (test code = 9.2 fL 9.8-13.0 L 48178-1) NRBC/100 WBC (test See_Comment [Automat ed code = 4544700999) message] The system which generated this result transmitted reference range : 0.0 - 10.0 /100 WBCs. The refer ence range was not u sed to interpret th is result as normal/abnormal . NRBC x10^3 (test code <0.01 See_Comment [Auto mated = 6039600814) message] The s ystem which generated this result transmitted reference range : 10*3/?L. The reference range was not used to interpret this result as normal/abnormal . GRAN MAT (NEUT) % 47.2 % (test code = 770-8) IMM GRAN % (test code 0.30 % = 5873705186) LYMPH % (test code = 36.0 % 736-9) MONO % (test code = 12.6 % 5905-5) EOS % (test code = 3.4 % 713-8) BASO % (test code = 0.5 % 706-2) GRAN MAT x10^3(ANC) 1.80 10*3/uL 1.99-6.95 L (test code = 5611956785) IMM GRAN x10^3 (test <0.03 0.00-0.06 code = 6734877372) LYMPH x10^3 (test code 1.37 10*3/uL 1.09-3.23 = 731-0) MONO x10^3 (test code 0.48 10*3/uL 0.36-1.02 = 742-7) EOS x10^3 (test code = 0.13 10*3/uL 0.06-0.53 711-2) BASO x10^3 (test code <0.03 0.01-0.09 = 704-7) Lab Interpretation Abnormal (test code = 25540-2) [facility] METABOLIC PANEL (NA, K, CL, CO2, GLUCOSE, BUN, CREATININE, CA)2021-08-04 12:17:48 Test Item Value Reference Range Interpretation Comments NA (test code = 139 mmol/L 135-145 2313087770) K (test code = 4.3 mmol/L 3.5-5.0 1586483851) CL (test code = 110 mmol/L 98-108 H 3975653026) CO2 TOTAL (test code = 26 mmol/L 23-31 7507772036) AGAP (test code = 2-16 0212019286) BUN (test code = 8 mg/dL 7-23 5794512378) GLUCOSE (test code = 87 mg/dL 70-110 6736405372) CREATININE (test code = 1.50 mg/dL 0.60-1.25 H 9842565783) CALCIUM (test code = 8.4 mg/dL 8.6-10.6 L 7894387004) eGFR (test code = mL/min/1.73m2 0569733340) GILBERTO (test code = GILBERTO) Association of [...] tests). Lab Interpretation Abnormal (test code = 96665-0) [facility] 12:17:48 Test Item Value Reference Range Interpretation Comments MAGNESIUM (test code = 5682053289) 1.9 mg/dL 1.7-2.4 Lab Interpretation (test code = Normal 20523-5) [facility]2021-[facility]-12 12:17:48 Test Item Value Reference Range Interpretation Comments PHOSPHORUS (test code = 4831656153) 4.6 mg/dL 2.5-5.0 Lab Interpretation (test code = Normal 36323-7) [facility] WITH [id number] 11:23:38 Test Item Value Reference Range Interpretation [...] RDW-SD (test code = 47.8 fL 38.5-51.6 29078-9) RDW-CV (test code = 14.1 % 12.1-15.4 788-0) PLT (test code = See_Comment [Automated 777-3) message] The sy stem which generated this result transmitted reference range : 150 - 328 10*3/ ?L. The reference r meredith was not used to interpret this result as normal/abnormal . MPV (test code = 9.3 fL 9.8-13.0 L 41214-3) NRBC/100 WBC (test See_Comment [Automat ed code = 4571212704) message] The system which generated this result transmitted reference range : 0.0 - 10.0 /100 WBCs. The refer ence range was not u sed to interpret th is result as normal/abnormal . NRBC x10^3 (test code <0.01 See_Comment [Auto mated = 4905934752) message] The s ystem which generated this result transmitted reference range : 10*3/?L. The reference range was not used to interpret this result as normal/abnormal . GRAN MAT (NEUT) % 49.3 % (test code = 770-8) IMM GRAN % (test code 0.30 % = 8307103082) LYMPH % (test code = 34.6 % 736-9) MONO % (test code = 12.0 % 5905-5) EOS % (test code = 3.3 % 713-8) BASO % (test code = 0.5 % 706-2) GRAN MAT x10^3(ANC) 1.97 10*3/uL 1.99-6.95 L (test code = 8298063404) IMM GRAN x10^3 (test <0.03 0.00-0.06 code = 9173690292) LYMPH x10^3 (test code 1.38 10*3/uL 1.09-3.23 = 731-0) MONO x10^3 (test code 0.48 10*3/uL 0.36-1.02 = 742-7) EOS x10^3 (test code = 0.13 10*3/uL 0.06-0.53 711-2) BASO x10^3 (test code <0.03 0.01-0.09 = 704-7) Lab Interpretation Abnormal (test code = 74113-3) [facility] METABOLIC PANEL (NA, K, CL, CO2, GLUCOSE, BUN, CREATININE, CA)2021-08-03 11:18:55 Test Item Value Reference Range Interpretation Comments NA (test code = 139 mmol/L 135-145 9730611516) K (test code = 4.1 mmol/L 3.5-5.0 7743318499) CL (test code = 110 mmol/L 98-108 H 0204446545) CO2 TOTAL (test code = 27 mmol/L 23-31 6215208518) AGAP (test code = 2-16 2049485688) BUN (test code = 8 mg/dL 7-23 2082097337) GLUCOSE (test code = 93 mg/dL 70-110 1401345678) CREATININE (test code = 1.39 mg/dL 0.60-1.25 H 5740475962) CALCIUM (test code = 8.1 mg/dL 8.6-10.6 L 6883220313) eGFR (test code = mL/min/1.73m2 1717144204) GILBERTO (test code = GILBERTO) Association of [...] tests). Lab Interpretation Abnormal (test code = 58731-6) [facility]55 Test Item Value Reference Range Interpretation Comments MAGNESIUM (test code = 1797790210) 2.0 mg/dL 1.7-2.4 Lab Interpretation (test code = Normal 27721-7) [facility] 11:18:55 Test Item Value Reference Range Interpretation Comments PHOSPHORUS (test code = 7533967766) 3.8 mg/dL 2.5-5.0 Lab Interpretation (test code = Normal 07430-2) [facility] (NA, K, CL, CO2, GLUCOSE, BUN, CREATININE, CA)2021-08-02 14:06:51 Test Item Value Reference Range Interpretation Comments NA (test code = 137 mmol/L 135-145 4255774716) K (test code = 4.4 mmol/L 3.5-5.0 9282459307) CL (test code = 108 mmol/L 98-108 1899532274) CO2 TOTAL (test code = 24 mmol/L 23-31 8333758190) AGAP (test code = 2-16 8733032918) BUN (test code = 10 mg/dL 7-23 7342971279) GLUCOSE (test code = 83 mg/dL 70-110 9712778187) CREATININE (test code = 1.48 mg/dL 0.60-1.25 H 6723882664) CALCIUM (test code = 8.4 mg/dL 8.6-10.6 L 4667041509) eGFR (test code = mL/min/1.73m2 1597167507) GILBERTO (test code = GILBERTO) Association of [...] tests). Lab Interpretation Abnormal (test code = 75609-8) [facility] 14:06:51 Test Item Value Reference Range Interpretation Comments MAGNESIUM (test code = 1519429349) 2.1 mg/dL 1.7-2.4 Lab Interpretation (test code = Normal 31360-0) [facility] 14:06:51 Test Item Value Reference Range Interpretation Comments PHOSPHORUS (test code = 4654063722) 4.6 mg/dL 2.5-5.0 Lab Interpretation (test code = Normal 16985-6) [facility] WITH [id number] 12:30:05 Test Item Value Reference Range Interpretation [...] RDW-SD (test code = 48.6 fL 38.5-51.6 99788-7) RDW-CV (test code = 14.3 % 12.1-15.4 788-0) PLT (test code = See_Comment [Automated 777-3) message] The sy stem which generated this result transmitted reference range : 150 - 328 10*3/ ?L. The reference r meredith was not used to interpret this result as normal/abnormal . MPV (test code = 10.0 fL 9.8-13.0 13861-7) NRBC/100 WBC (test See_Comment [Automat ed code = 8170062121) message] The system which generated this result transmitted reference range : 0.0 - 10.0 /100 WBCs. The refer ence range was not u sed to interpret th is result as normal/abnormal . NRBC x10^3 (test code <0.01 See_Comment [Auto mated = 5738025514) message] The s ystem which generated this result transmitted reference range : 10*3/?L. The reference range was not used to interpret this result as normal/abnormal . GRAN MAT (NEUT) % 51.9 % (test code = 770-8) IMM GRAN % (test code 0.60 % = 2707133045) LYMPH % (test code = 32.7 % 736-9) MONO % (test code = 11.3 % 5905-5) EOS % (test code = 3.2 % 713-8) BASO % (test code = 0.3 % 706-2) GRAN MAT x10^3(ANC) 1.80 10*3/uL 1.99-6.95 L (test code = 0380838493) IMM GRAN x10^3 (test <0.03 0.00-0.06 code = 2600551736) LYMPH x10^3 (test code 1.13 10*3/uL 1.09-3.23 = 731-0) MONO x10^3 (test code 0.39 10*3/uL 0.36-1.02 = 742-7) EOS x10^3 (test code = 0.11 10*3/uL 0.06-0.53 711-2) BASO x10^3 (test code <0.03 0.01-0.09 = 704-7) Lab Interpretation Abnormal (test code = 68812-5) [facility] WITH [id number] 10:44:18 Test Item Value Reference Range Interpretation [...] RDW-SD (test code = 48.0 fL 38.5-51.6 49161-1) RDW-CV (test code = 14.1 % 12.1-15.4 788-0) PLT (test code = See_Comment [Automated 777-3) message] The sy stem which generated this result transmitted reference range : 150 - 328 10*3/ ?L. The reference r meredith was not used to interpret this result as normal/abnormal . MPV (test code = 9.5 fL 9.8-13.0 L 74669-6) NRBC/100 WBC (test See_Comment [Automat ed code = 7483454503) message] The system which generated this result transmitted reference range : 0.0 - 10.0 /100 WBCs. The refer ence range was not u sed to interpret th is result as normal/abnormal . NRBC x10^3 (test code <0.01 See_Comment [Auto mated = 8901203051) message] The s ystem which generated this result transmitted reference range : 10*3/?L. The reference range was not used to interpret this result as normal/abnormal . GRAN MAT (NEUT) % 50.8 % (test code = 770-8) IMM GRAN % (test code 0.30 % = 2522884752) LYMPH % (test code = 34.6 % 736-9) MONO % (test code = 10.3 % 5905-5) EOS % (test code = 3.7 % 713-8) BASO % (test code = 0.3 % 706-2) GRAN MAT x10^3(ANC) 1.78 10*3/uL 1.99-6.95 L (test code = 6929832924) IMM GRAN x10^3 (test <0.03 0.00-0.06 code = 7368053660) LYMPH x10^3 (test code 1.21 10*3/uL 1.09-3.23 = 731-0) MONO x10^3 (test code 0.36 10*3/uL 0.36-1.02 = 742-7) EOS x10^3 (test code = 0.13 10*3/uL 0.06-0.53 711-2) BASO x10^3 (test code <0.03 0.01-0.09 = 704-7) Lab Interpretation Abnormal (test code = 76385-1) [facility] METABOLIC PANEL (NA, K, CL, CO2, GLUCOSE, BUN, CREATININE, CA)2021-08-01 10:25:17 Test Item Value Reference Range Interpretation Comments NA (test code = 138 mmol/L 135-145 7052615973) K (test code = 4.1 mmol/L 3.5-5.0 2660650326) CL (test code = 105 mmol/L 98-108 9206341741) CO2 TOTAL (test code = 28 mmol/L 23-31 4457000448) AGAP (test code = 2-16 5312146760) BUN (test code = 13 mg/dL 7-23 4394769318) GLUCOSE (test code = 86 mg/dL 70-110 9074288069) CREATININE (test code = 1.46 mg/dL 0.60-1.25 H 8819650472) CALCIUM (test code = 8.7 mg/dL 8.6-10.6 7910808319) eGFR (test code = mL/min/1.73m2 5233605890) GILBERTO (test code = GILBERTO) Association of [...] tests). Lab Interpretation Abnormal (test code = 20513-9) [facility] 10:25:17 Test Item Value Reference Range Interpretation Comments MAGNESIUM (test code = 1940155248) 1.6 mg/dL 1.7-2.4 L Lab Interpretation (test code = Abnormal 37786-9) [facility]21[facility]-09 10:25:17 Test Item Value Reference Range Interpretation Comments PHOSPHORUS (test code = 8060821581) 4.1 mg/dL 2.5-5.0 Lab Interpretation (test code = Normal 27796-1) [facility]2021-[facility]-08 16:18:34 Test Item Value Reference Range Interpretation Comments PALB (test code = 86355-3) 24.3 mg/dL 18.0-45.0 Lab Interpretation (test code = Normal 45785-8) [facility] [id number] 11:20:19 Test Item Value Reference Range Interpretation [...] RDW-SD (test code = 49.6 fL 38.5-51.6 42641-6) RDW-CV (test code = 14.6 % 12.1-15.4 788-0) PLT (test code = See_Comment [Automated 777-3) message] The sy stem which generated this result transmitted reference range : 150 - 328 10*3/ ?L. The reference r meredith was not used to interpret this result as normal/abnormal . MPV (test code = 9.6 fL 9.8-13.0 L 73560-5) NRBC/100 WBC (test See_Comment [Automat ed code = 7741655601) message] The system which generated this result transmitted reference range : 0.0 - 10.0 /100 WBCs. The refer ence range was not u sed to interpret th is result as normal/abnormal . NRBC x10^3 (test code <0.01 See_Comment [Auto mated = 9383037283) message] The s ystem which generated this result transmitted reference range : 10*3/?L. The reference range was not used to interpret this result as normal/abnormal . GRAN MAT (NEUT) % 49.1 % (test code = 770-8) IMM GRAN % (test code 0.30 % = 4912014662) LYMPH % (test code = 36.0 % 736-9) MONO % (test code = 10.6 % 5905-5) EOS % (test code = 3.4 % 713-8) BASO % (test code = 0.6 % 706-2) GRAN MAT x10^3(ANC) 1.76 10*3/uL 1.99-6.95 L (test code = 0995852272) IMM GRAN x10^3 (test <0.03 0.00-0.06 code = 2000319651) LYMPH x10^3 (test code 1.29 10*3/uL 1.09-3.23 = 731-0) MONO x10^3 (test code 0.38 10*3/uL 0.36-1.02 = 742-7) EOS x10^3 (test code = 0.12 10*3/uL 0.06-0.53 711-2) BASO x10^3 (test code <0.03 0.01-0.09 = 704-7) Lab Interpretation Abnormal (test code = 74931-7) [facility] METABOLIC PANEL (NA, K, CL, CO2, GLUCOSE, BUN, CREATININE, CA)2021-07-31 11:11:17 Test Item Value Reference Range Interpretation Comments NA (test code = 135 mmol/L 135-145 3285095792) K (test code = 3.8 mmol/L 3.5-5.0 8354557105) CL (test code = 108 mmol/L 98-108 7313036098) CO2 TOTAL (test code = 24 mmol/L 23-31 1613996714) AGAP (test code = 2-16 9068834695) BUN (test code = 13 mg/dL 7-23 5668140950) GLUCOSE (test code = 88 mg/dL 70-110 4690936777) CREATININE (test code = 1.32 mg/dL 0.60-1.25 H 0558075458) CALCIUM (test code = 8.4 mg/dL 8.6-10.6 L 0996873532) eGFR (test code = mL/min/1.73m2 5674042393) GILBERTO (test code = GILBERTO) Association of [...] tests). Lab Interpretation Abnormal (test code = 07628-4) [facility] 11:11:17 Test Item Value Reference Range Interpretation Comments MAGNESIUM (test code = 2829914735) 1.8 mg/dL 1.7-2.4 Lab Interpretation (test code = Normal 23820-0) [facility]2021-[facility]-08 11:11:17 Test Item Value Reference Range Interpretation Comments PHOSPHORUS (test code = 9898741881) 4.0 mg/dL 2.5-5.0 Lab Interpretation (test code = Normal 36869-7) [facility]OL[facility] (54404)2021-07-30 03:46:32 Test Item Value Reference Range Interpretation Comments NA (test code = 132 mmol/L 135-145 L 4223416314) K (test code = 4.4 mmol/L 3.5-5.0 6237708973) CL (test code = 102 mmol/L 98-108 4359243568) CO2 TOTAL (test code = 24 mmol/L 23-31 4272522143) AGAP (test code = 2-16 3203402548) BUN (test code = 21 mg/dL 7-23 3636030578) GLUCOSE (test code = 95 mg/dL 70-110 4801965672) CREATININE (test code = 1.76 mg/dL 0.60-1.25 H 3406937536) TOTAL BILI (test code = 0.7 mg/dL 0.1-1.1 0901849940) CALCIUM (test code = 8.8 mg/dL 8.6-10.6 7431654893) T PROTEIN (test code = 6.0 g/dL 6.3-8.2 L 1514733282) ALBUMIN (test code = 3.8 g/dL 3.5-5.0 1934885837) ALK PHOS (test code = 67 U/L 34-122 4344432297) ALTv (test code = 47 U/L 5-50 1742-6) AST(SGOT) (test code = 39 U/L 13-40 3163821980) eGFR (test code = mL/min/1.73m2 1756310491) GILBERTO (test code = GILBERTO) Association of [...] tests). Lab Interpretation Abnormal (test code = 73762-0) [facility] 03:19:26 Test Item Value Reference Range Interpretation Comments LIPASE (test code = 5385627854) 58 U/L 0-220 Lab Interpretation (test code = Normal 20087-1) [facility] WITH [id number] 03:07:20 Test Item Value Reference Range Interpretation [...] RDW-SD (test code = 47.4 fL 38.5-51.6 33123-2) RDW-CV (test code = 14.2 % 12.1-15.4 788-0) PLT (test code = See_Comment [Automated 777-3) message] The sy stem which generated this result transmitted reference range : 150 - 328 10*3/ ?L. The reference r meredith was not used to interpret this result as normal/abnormal . MPV (test code = 9.9 fL 9.8-13.0 24140-2) NRBC/100 WBC (test See_Comment [Automat ed code = 3929532863) message] The system which generated this result transmitted reference range : 0.0 - 10.0 /100 WBCs. The refer ence range was not u sed to interpret th is result as normal/abnormal . NRBC x10^3 (test code <0.01 See_Comment [Auto mated = 4128283583) message] The s ystem which generated this result transmitted reference range : 10*3/?L. The reference range was not used to interpret this result as normal/abnormal . GRAN MAT (NEUT) % 61.1 % (test code = 770-8) IMM GRAN % (test code 0.20 % = 9280611879) LYMPH % (test code = 24.4 % 736-9) MONO % (test code = 11.8 % 5905-5) EOS % (test code = 2.2 % 713-8) BASO % (test code = 0.3 % 706-2) GRAN MAT x10^3(ANC) 3.98 10*3/uL 1.99-6.95 (test code = 8673273577) IMM GRAN x10^3 (test <0.03 0.00-0.06 code = 5483732393) LYMPH x10^3 (test code 1.59 10*3/uL 1.09-3.23 = 731-0) MONO x10^3 (test code 0.77 10*3/uL 0.36-1.02 = 742-7) EOS x10^3 (test code = 0.14 10*3/uL 0.06-0.53 711-2) BASO x10^3 (test code <0.03 0.01-0.09 = 704-7) Lab Interpretation Abnormal (test code = 69853-4) [facility] Whole [id number] 03:00:47 Test Item Value Reference Range Interpretation Comments LACTIC ACID (test code = 1.45 mmol/L 0.50-2.20 QUE S 5707541183) Lab Interpretation (test code = Normal 78557-8) [facility] METABOLIC [id number] 11:51:00 Test Item Value Reference Range Interpretation [...] Units/L 50.0-136.0 N code = ALKP) PROTHROMBIN [id number] 11:41:00 Test Item Value Reference Range Interpretation Comments PROTHROMBIN TIME 10.9 SECONDS 9.9-12.8 N PATIENT (test code = PTP) INTERNATIONAL NORMAL 0.9 0.89-1.14 N THE INR IS TO BE USED RATIO (test code = ONLY FOR MONITORING INR) ORAL ANTICOAGULANTTH ERAPY. THE FOLLOWING A RE SUGGESTED RANGE S [facility] LEGE OF CHEST PHYSICIANS:ROOPA CATION INR VALUEPROPHY [...] D ANTIBODIES 2.5 - 3.5 CBC W/AUTO [id number] 11:36:00 Test Item Value Reference Range Interpretation [...] NA (test code = 137 mmol/L 135-145 8829663298) K (test code = 4.2 mmol/L 3.5-5.0 9200659437) CL (test code = 109 mmol/L 98-108 H 6801446182) CO2 TOTAL (test code = 25 mmol/L 23-31 2809371376) AGAP (test code = 2-16 7869816857) BUN (test code = 11 mg/dL 7-23 3459630588) GLUCOSE (test code = 83 mg/dL 70-110 0407553641) CREATININE (test code = 1.40 mg/dL 0.60-1.25 H 8616745861) CALCIUM (test code = 8.6 mg/dL 8.6-10.6 7183547938) eGFR (test code = mL/min/1.73m2 9916449123) GILBERTO (test code = GILBERTO) Association of [...] tests). Lab Interpretation Abnormal (test code = 32069-4) [facility]2021[facility]-03 13:15:26 Test Item Value Reference Range Interpretation Comments MAGNESIUM (test code = 8493921239) 1.6 mg/dL 1.7-2.4 L Lab Interpretation (test code = Abnormal 21172-7) [facility]21[facility]03 13:15:26 Test Item Value Reference Range Interpretation Comments PHOSPHORUS (test code = 6828159254) 3.5 mg/dL 2.5-5.0 Lab Interpretation (test code = Normal 79321-2) [facility] WITH [id number] 12:50:41 Test Item Value Reference Range Interpretation Comments WBC (test code = See_Comment [Automated 0390-2) message] The sy stem which generated this result transmitted reference range : 4.20 - 10.70 10*3/?L. The reference range was not used to interpret this result as normal/abnormal . RBC (test code = See_Comment L [Automated 740-8) message] The sy stem which generated this [...] RDW-SD (test code = 46.7 fL 38.5-51.6 31540-5) RDW-CV (test code = 14.3 % 12.1-15.4 788-0) PLT (test code = See_Comment [Automated 777-3) message] The sy stem which generated this result transmitted reference range : 150 - 328 10*3/ ?L. The reference r meredith was not used to interpret this result as normal/abnormal . MPV (test code = 9.6 fL 9.8-13.0 L 23986-3) NRBC/100 WBC (test See_Comment [Automat ed code = 8355171963) message] The system which generated this result transmitted reference range : 0.0 - 10.0 /100 WBCs. The refer ence range was not u sed to interpret th is result as normal/abnormal . NRBC x10^3 (test code <0.01 See_Comment [Auto mated = 4852184461) message] The s ystem which generated this result transmitted reference range : 10*3/?L. The reference range was not used to interpret this result as normal/abnormal . GRAN MAT (NEUT) % 52.7 % (test code = 770-8) IMM GRAN % (test code 0.40 % = 8898899124) LYMPH % (test code = 33.7 % 736-9) MONO % (test code = 10.4 % 5905-5) EOS % (test code = 2.4 % 713-8) BASO % (test code = 0.4 % 706-2) GRAN MAT x10^3(ANC) 2.65 10*3/uL 1.99-6.95 (test code = 3800534520) IMM GRAN x10^3 (test <0.03 0.00-0.06 code = 5218561948) LYMPH x10^3 (test code 1.69 10*3/uL 1.09-3.23 = 731-0) MONO x10^3 (test code 0.52 10*3/uL 0.36-1.02 = 742-7) EOS x10^3 (test code = 0.12 10*3/uL 0.06-0.53 711-2) BASO x10^3 (test code <0.03 0.01-0.09 = 704-7) Lab Interpretation Abnormal (test code = 73629-4) [facility]21[facility]-02 12:35:59 Test Item Value Reference Range Interpretation Comments MAGNESIUM (test code = 9938768307) 1.6 mg/dL 1.7-2.4 L Lab Interpretation (test code = Abnormal 21073-2) [facility]21[facility] 12:35:59 Test Item Value Reference Range Interpretation Comments PHOSPHORUS (test code = 5558572622) 4.0 mg/dL 2.5-5.0 Lab Interpretation (test code = Normal 31460-0) [facility] (NA, K, CL, CO2, GLUCOSE, BUN, CREATININE, CA)2021-07-25 12:09:12 Test Item Value Reference Range Interpretation Comments NA (test code = 139 mmol/L 135-145 3537020523) K (test code = 4.1 mmol/L 3.5-5.0 0789014874) CL (test code = 111 mmol/L 98-108 H 7193604854) CO2 TOTAL (test code = 25 mmol/L 23-31 9786620998) AGAP (test code = 2-16 9672058496) BUN (test code = 13 mg/dL 7-23 7474683829) GLUCOSE (test code = 86 mg/dL 70-110 8798270398) CREATININE (test code = 1.43 mg/dL 0.60-1.25 H 0465001040) CALCIUM (test code = 8.4 mg/dL 8.6-10.6 L 2074394022) eGFR (test code = mL/min/1.73m2 7312132326) GILBERTO (test code = GILBERTO) Association of [...] tests). Lab Interpretation Abnormal (test code = 08478-3) [facility] WITH [id number] 11:44:33 Test Item Value Reference Range Interpretation Comments WBC (test code = See_Comment [Automated 8790-2) message] The sy stem which generated this result transmitted reference range : 4.20 - 10.70 10*3/?L. The reference range was not used to interpret this result as normal/abnormal . RBC (test code = See_Comment L [Automated 069-8) message] The sy stem which generated this [...] RDW-SD (test code = 48.9 fL 38.5-51.6 85485-7) RDW-CV (test code = 14.3 % 12.1-15.4 788-0) PLT (test code = See_Comment [Automated 777-3) message] The sy stem which generated this result transmitted reference range : 150 - 328 10*3/ ?L. The reference r meredith was not used to interpret this result as normal/abnormal . MPV (test code = 9.6 fL 9.8-13.0 L 30517-1) NRBC/100 WBC (test See_Comment [Automat ed code = 2418000045) message] The system which generated this result transmitted reference range : 0.0 - 10.0 /100 WBCs. The refer ence range was not u sed to interpret th is result as normal/abnormal . NRBC x10^3 (test code <0.01 See_Comment [Auto mated = 2839498722) message] The s ystem which generated this result transmitted reference range : 10*3/?L. The reference range was not used to interpret this result as normal/abnormal . GRAN MAT (NEUT) % 50.0 % (test code = 770-8) IMM GRAN % (test code 0.20 % = 4578064382) LYMPH % (test code = 36.7 % 736-9) MONO % (test code = 10.0 % 5905-5) EOS % (test code = 2.6 % 713-8) BASO % (test code = 0.5 % 706-2) GRAN MAT x10^3(ANC) 2.11 10*3/uL 1.99-6.95 (test code = 9836489301) IMM GRAN x10^3 (test <0.03 0.00-0.06 code = 0933047611) LYMPH x10^3 (test code 1.55 10*3/uL 1.09-3.23 = 731-0) MONO x10^3 (test code 0.42 10*3/uL 0.36-1.02 = 742-7) EOS x10^3 (test code = 0.11 10*3/uL 0.06-0.53 711-2) BASO x10^3 (test code <0.03 0.01-0.09 = 704-7) Lab Interpretation Abnormal (test code = 60282-9) [facility] WITH [id number] 04:23:56 Test Item Value Reference Range Interpretation [...] RDW-SD (test code = 49.0 fL 38.5-51.6 63333-8) RDW-CV (test code = 14.4 % 12.1-15.4 788-0) PLT (test code = See_Comment [Automated 777-3) message] The sy stem which generated this result transmitted reference range : 150 - 328 10*3/ ?L. The reference r meredith was not used to interpret this result as normal/abnormal . MPV (test code = 9.5 fL 9.8-13.0 L 44416-8) NRBC/100 WBC (test See_Comment [Automat ed code = 5350513675) message] The system which generated this result transmitted reference range : 0.0 - 10.0 /100 WBCs. The refer ence range was not u sed to interpret th is result as normal/abnormal . NRBC x10^3 (test code <0.01 See_Comment [Auto mated = 9762249844) message] The s ystem which generated this result transmitted reference range : 10*3/?L. The reference range was not used to interpret this result as normal/abnormal . GRAN MAT (NEUT) % 49.9 % (test code = 770-8) IMM GRAN % (test code 0.20 % = 9606233579) LYMPH % (test code = 35.2 % 736-9) MONO % (test code = 11.7 % 5905-5) EOS % (test code = 2.4 % 713-8) BASO % (test code = 0.6 % 706-2) GRAN MAT x10^3(ANC) 2.31 10*3/uL 1.99-6.95 (test code = 0076773520) IMM GRAN x10^3 (test <0.03 0.00-0.06 code = 6798434373) LYMPH x10^3 (test code 1.63 10*3/uL 1.09-3.23 = 731-0) MONO x10^3 (test code 0.54 10*3/uL 0.36-1.02 = 742-7) EOS x10^3 (test code = 0.11 10*3/uL 0.06-0.53 711-2) BASO x10^3 (test code 0.03 10*3/uL 0.01-0.09 = 704-7) Lab Interpretation Abnormal (test code = 19212-4) [facility] METABOLIC PANEL (NA, K, CL, CO2, GLUCOSE, BUN, CREATININE, CA)2021-07-24 12:55:24 Test Item Value Reference Range Interpretation Comments NA (test code = 135 mmol/L 135-145 2463841467) K (test code = 4.0 mmol/L 3.5-5.0 8576057176) CL (test code = 109 mmol/L 98-108 H 2008903543) CO2 TOTAL (test code = 22 mmol/L 23-31 L 6949859444) AGAP (test code = 2-16 6539065111) BUN (test code = 12 mg/dL 7-23 9885435440) GLUCOSE (test code = 102 mg/dL 70-110 4514653332) CREATININE (test code = 1.27 mg/dL 0.60-1.25 H 5400085812) CALCIUM (test code = 8.6 mg/dL 8.6-10.6 2007779115) eGFR (test code = mL/min/1.73m2 1919422441) GILBERTO (test code = GILBERTO) Association of [...] tests). Lab Interpretation Abnormal (test code = 93683-7) [facility] 12:55:24 Test Item Value Reference Range Interpretation Comments MAGNESIUM (test code = 2647850319) 1.7 mg/dL 1.7-2.4 Lab Interpretation (test code = Normal 77496-3) [facility]21[facility]01 12:55:24 Test Item Value Reference Range Interpretation Comments PHOSPHORUS (test code = 6143123651) 3.1 mg/dL 2.5-5.0 Lab Interpretation (test code = Normal 53407-5) [facility] (NA, K, CL, CO2, Glucose, BUN, Creatinine, CA)2021-07-23 13:27:55 Test Item Value Reference Range Interpretation Comments NA (test code = 134 mmol/L 135-145 L 2852050209) K (test code = 3.8 mmol/L 3.5-5.0 5235623188) CL (test code = 107 mmol/L 98-108 7962866906) CO2 TOTAL (test code = 21 mmol/L 23-31 L 4506975979) AGAP (test code = 2-16 6232873092) BUN (test code = 18 mg/dL 7-23 1608384017) GLUCOSE (test code = 120 mg/dL 70-110 H 3187042266) CREATININE (test code = 1.46 mg/dL 0.60-1.25 H 6566917571) CALCIUM (test code = 8.7 mg/dL 8.6-10.6 6868854893) eGFR (test code = mL/min/1.73m2 5635393756) GILBERTO (test code = GILBERTO) Association of [...] tests). Lab Interpretation Abnormal (test code = 25684-4) [facility]30 13:27:55 Test Item Value Reference Range Interpretation Comments MAGNESIUM (test code = 3175990789) 1.9 mg/dL 1.7-2.4 Lab Interpretation (test code = Normal 98044-0) [facility] 13:27:55 Test Item Value Reference Range Interpretation Comments PHOSPHORUS (test code = 5303369413) 3.5 mg/dL 2.5-5.0 Lab Interpretation (test code = Normal 50527-5) [facility] Ilggaqjrcfqh4519-28-24 13:06:55 Test Item Value Reference Range Interpretation [...] RDW-SD (test code = 47.8 fL 38.5-51.6 05734-2) RDW-CV (test code = 14.4 % 12.1-15.4 788-0) PLT (test code = See_Comment [Automated 777-3) message] The sy stem which generated this result transmitted reference range : 150 - 328 10*3/ ?L. The reference r meredith was not used to interpret this result as normal/abnormal . MPV (test code = 9.4 fL 9.8-13.0 L 67486-0) NRBC/100 WBC (test See_Comment [Automat ed code = [id number]) message] The system which generated this result transmitted reference range : 0.0 - 10.0 /100 WBCs. The refer ence range was not u sed to interpret th is result as normal/abnormal . NRBC x10^3 (test code <0.01 See_Comment [Auto mated = [id number]) message] The s ystem which generated this result transmitted reference range : 10*3/?L. The reference range was not used to interpret this result as normal/abnormal . GRAN MAT (NEUT) % 54.7 % (test code = 770-8) IMM GRAN % (test code 0.40 % = [id number]) LYMPH % (test code = 33.3 % 736-9) MONO % (test code = 9.4 % 5905-5) EOS % (test code = 1.8 % 713-8) BASO % (test code = 0.4 % 706-2) GRAN MAT x10^3(ANC) 2.78 10*3/uL 1.99-6.95 (test code = [id number]) IMM GRAN x10^3 (test <0.03 0.00-0.06 code = 8751745930) LYMPH x10^3 (test code 1.69 10*3/uL 1.09-3.23 = 731-0) MONO x10^3 (test code 0.48 10*3/uL 0.36-1.02 = 742-7) EOS x10^3 (test code = 0.09 10*3/uL 0.06-0.53 711-2) BASO x10^3 (test code <0.03 0.01-0.09 = 704-7) Lab Interpretation Abnormal (test code = 84060-6) [facility] W/AUTO [id number] 09:48:00 Test Item Value Reference Range Interpretation [...] = MX#) 0.8 k/mm3 0.1-0.8 N GLUCOSE [id number] 06:12:00 Test Item Value Reference Range Interpretation Comments GLUCOSE BEDSIDE (test 129 MG/DL 70-110 [facility] Center med by certified code = GLUBED) 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 [facility] BASIC METABOLIC [id number] 05:21:00 Test Item Value Reference Range Interpretation [...] (test code = POCGLU) 92 MG/DL GLUCOSE [id number] 05:19:00 Test Item Value Reference Range Interpretation Comments GLUCOSE BEDSIDE (test 51 MG/DL 70-110 L [facility] med by certified code = GLUBED) 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 [facility] CBC W/AUTO [id number] 14:00:00 Test Item Value Reference Range Interpretation [...] MX#) 0.2 k/mm3 0.1-0.8 N CBC W/AUTO [id number] 00:07:00 Test Item Value Reference Range Interpretation [...] = LY#) 2.4 K/uL 1.0-3.8 N LIVER [id number] 16:14:00 Test Item Value Reference Range Interpretation Comments TOTAL PROTEIN (test code 7.5 GM/DL 5.0-8.0 N Per formed by = PROT) 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 [facility] ALBUMIN (test code = 3.9 [...] 65 UNITS/L 25-125 N TAWNY) BASIC METABOLIC [id number] 16:07:00 Test Item Value Reference Range Interpretation [...] POCGLU) 96 MG/DL - XR CHEST 1 [id number] 00:00:00 [facility]A JO[facility]PH[place] : 1970 Sex: MFAX: Sabi Urias MD [phone] [place]: MS St: PRE Name: OPALDORA Erazo FSED : 1970 Age/S: 51/M [address] [facility] Unit #: [id number] Loc: [place] [address] Phys: Sabi Urias MD Acct: [id number] Dis Date: Status: PRE ER PHONE #: Exam Date: 06/27/2021 6995 FAX #: Reason: Abdominal Pain EXAMS: CPT CODE: [id number] XR CHEST 1 V 37781 PROCEDURE INFORMATION: Exam: XR Chest Exam date [...] diaphragm. No acute cardiopulmonary findings otherwise.. at 1558 Reported and signed by: Андрей Mar M.D. CC: Sabi Urias MD Technologist: RT Alanna(R)(CT) Trnscrd Date/Time/By: 06/27/2021 (1558) : By: [email or web address] Orig Print D/T: S: 06/27/2021 (1558) PAGE 1 Signed Report- CT ABD PELVIS [id number] 00:00:00 [facility]A JOSE[place] : 1970 Sex: MName: DORA JOSEPH FSED : 1970 Age/S: 51 / M [address] [facility] Unit #: [id number] Loc: [place] [address] Phys: Sabi Urias MD Acct: [id number] Dis Date: Status: REG ER PHONE #: Exam Date: 06/27/2021 1626 FAX #: Reason: pain in region of colostomy EXAMS: CPT CODE: [id number] CT ABD PELVIS W/CONT 18203 PROCEDURE INFORMATION: Exam: CT Abdomen And Pelvis [...] containing hernia is present is present with i leostomy prolapse. No small bowel dilatation is present [...] : 1970 Age/S: 51 / M [address] [facility] Unit #: [id number] Loc: [place] [address] Phys: Sabi Urias MD Acct: [id number] Dis Date: Status: REG ER PHONE #: Exam Date: 06/27/2021 1625 FAX #: Reason:pain in region of colostomy EXAMS: CPT CODE: [id number] CT ABD PELVIS W/CONT 24300 <Continued>with ileostomy prolapse. There is no evidence of associated intestinal obstruction. 2. No additionalacute CT abnormalities of the abdomen or pelvis are identified. SL:131 at 1650 Reported and signed by: Marco Raman M.D. CC: Sabi Urias MD Technologist:RT Alanna(R)(CT) CTDI: DLP: Trnscb Date/Time: 06/27/2021 (1649) t.[email or web address] Orig Print D/T: S: 06/27/2021 (1649) PAGE 2 Signed ReportBASIC METABOLIC PANEL (NA, K, CL, CO2, GLUCOSE, BUN, CREATININE, CA)2021-06-03 11:32:40 Test Item Value Reference Range Interpretation Comments NA (test code = 133 mmol/L 135-145 L 9853873797) K (test code = 3.7 mmol/L 3.5-5.0 1574790033) CL (test code = 108 mmol/L 98-108 3093024366) CO2 TOTAL (test code = 20 mmol/L 23-31 L 2683554215) AGAP (test code = 2-16 6017906292) BUN (test code = 11 mg/dL 7-23 3106985301) GLUCOSE (test code = 82 mg/dL 70-110 8485968176) CREATININE (test code = 0.96 mg/dL 0.60-1.25 2427140982) CALCIUM (test code = 8.6 mg/dL 8.6-10.6 0802085564) eGFR (test code = mL/min/1.73m2 6359886162) GILBERTO (test code = GILBERTO) Association of [...] tests). Lab Interpretation Abnormal (test code = 57036-2) [facility] METABOLIC PANEL (NA, K, CL, CO2, GLUCOSE, BUN, CREATININE, CA)2021-06-02 11:45:25 Test Item Value Reference Range Interpretation Comments NA (test code = 133 mmol/L 135-145 L 8516277656) K (test code = 3.7 mmol/L 3.5-5.0 8985919244) CL (test code = 111 mmol/L 98-108 H 4283005297) CO2 TOTAL (test code = 17 mmol/L 23-31 L 3456387466) AGAP (test code = 2-16 4566572552) BUN (test code = 15 mg/dL 7-23 5651050556) GLUCOSE (test code = 88 mg/dL 70-110 2790991668) CREATININE (test code = 0.96 mg/dL 0.60-1.25 6727032387) CALCIUM (test code = 8.1 mg/dL 8.6-10.6 L 2237968122) eGFR (test code = mL/min/1.73m2 8321463829) GILBERTO (test code = GILBERTO) Association of [...] tests). Lab Interpretation Abnormal (test code = 82150-9) [facility] METABOLIC PANEL (NA, K, CL, CO2, GLUCOSE, BUN, CREATININE, CA)2021-06-01 17:06:47 Test Item Value Reference Range Interpretation Comments NA (test code = 131 mmol/L 135-145 L 6405267002) K (test code = 3.9 mmol/L 3.5-5.0 Slight 1179944601) hemolysis CL (test code = 108 mmol/L 98-108 5686145141) CO2 TOTAL (test code 15 mmol/L 23-31 L = 9263508806) AGAP (test code = 2-16 0054646517) BUN (test code = 26 mg/dL 7-23 H Slight 5481762417) hemolysis GLUCOSE (test code = 85 mg/dL 70-110 2653198224) CREATININE (test code 1.26 mg/dL 0.60-1.25 H = 3083025694) CALCIUM (test code = 8.1 mg/dL 8.6-10.6 L 0353249698) eGFR (test code = mL/min/1.73m2 7699869996) GILBERTO (test code = GILBERTO) Association of [...] tests). Lab Interpretation Abnormal (test code = 65877-3) [facility] Whole [id number] 05:45:35 Test Item Value Reference Range Interpretation Comments LACTIC ACID (test code = 0.67 mmol/L 0.50-2.20 9160182853) Lab Interpretation (test code = Normal 58838-3) [facility]TR[facility] [id number] 23:44:55 Test Item Value Reference Interpretation Comments Range TROPONIN I (test 0.004 ng/mL See_Comment [Automated code = 2456001949) message] The system which generated this result [...] biotin. Lab Interpretation Normal (test code = 58739-4) [facility]20[facility] 23:33:28 Test Item Value Reference Range Interpretation Comments LIPASE (test code = 6810557372) 386 U/L 0-220 H Lab Interpretation (test code = Abnormal 64601-8) [facility] MET[facility]OLIC PANEL (59046)2021-05-31 23:33:28 Test Item Value Reference Range Interpretation Comments NA (test code = 128 mmol/L 135-145 L 2827850868) K (test code = 4.2 mmol/L 3.5-5.0 1906186779) CL (test code = 102 mmol/L 98-108 3096177309) CO2 TOTAL (test code = 13 mmol/L 23-31 L 6022343995) AGAP (test code = 2-16 5023523905) BUN (test code = 47 mg/dL 7-23 H 3105043455) GLUCOSE (test code = 106 mg/dL 70-110 3330153207) CREATININE (test code = 2.38 mg/dL 0.60-1.25 H 6338052441) TOTAL BILI (test code = 0.6 mg/dL 0.1-1.0 9202274604) CALCIUM (test code = 9.5 mg/dL 8.6-10.6 0587487325) T PROTEIN (test code = 7.3 g/dL 6.3-8.2 8640143024) ALBUMIN (test code = 4.6 g/dL 3.5-5.0 3113767429) ALK PHOS (test code = 110 U/L 34-122 4081603530) ALTv (test code = 29 U/L 5-50 1742-6) AST(SGOT) (test code = 33 U/L 13-40 1698592415) eGFR (test code = mL/min/1.73m2 8130989820) GILBERTO (test code = GILBERTO) Association of [...] tests). Lab Interpretation Abnormal (test code = 58674-4) [facility] WITH [id number] 22:57:06 Test Item Value Reference Range Interpretation Comments WBC (test code = See_Comment [Automated 2127-2) message] The sy stem which generated this [...] RDW-SD (test code = 43.2 fL 38.5-51.6 33147-9) RDW-CV (test code = 13.7 % 12.1-15.4 788-0) PLT (test code = See_Comment [Automated 777-3) message] The sy stem which generated this result transmitted reference range : 150 - 328 10*3/ ?L. The reference r meredith was not used to interpret this result as normal/abnormal . MPV (test code = 10.1 fL 9.8-13.0 85376-4) NRBC/100 WBC (test See_Comment [Automat ed code = 6955189238) message] The system which generated this result transmitted reference range : 0.0 - 10.0 /100 WBCs. The refer ence range was not u sed to interpret th is result as normal/abnormal . NRBC x10^3 (test code <0.01 See_Comment [Auto mated = 5202991588) message] The s ystem which generated this result transmitted reference range : 10*3/?L. The reference range was not used to interpret this result as normal/abnormal . GRAN MAT (NEUT) % 68.1 % (test code = 770-8) IMM GRAN % (test code 0.40 % = 6211561936) LYMPH % (test code = 21.9 % 736-9) MONO % (test code = 8.9 % 5905-5) EOS % (test code = 0.3 % 713-8) BASO % (test code = 0.4 % 706-2) GRAN MAT x10^3(ANC) 5.38 10*3/uL 1.99-6.95 (test code = 8807658743) IMM GRAN x10^3 (test 0.03 10*3/uL 0.00-0.06 code = 6891537811) LYMPH x10^3 (test code 1.73 10*3/uL 1.09-3.23 = 731-0) MONO x10^3 (test code 0.70 10*3/uL 0.36-1.02 = 742-7) EOS x10^3 (test code = <0.03 0.06-0.53 L 711-2) BASO x10^3 (test code 0.03 10*3/uL 0.01-0.09 = 704-7) Lab Interpretation Abnormal (test code = 22982-5) [facility]MAGN[facility]IUM2021-09-28 09:49:03 Test Item Value Reference Range Interpretation Comments MAGNESIUM (test code = 3501844141) 2.0 mg/dL 1.7-2.4 Lab Interpretation (test code = Normal 36155-3) [facility] RegionalPHOSPHORUS2021-09-28 09:49:03 Test Item Value Reference Range Interpretation Comments PHOSPHORUS (test code = 0691936511) 4.0 mg/dL 2.5-5.0 Lab Interpretation (test code = Normal 76413-8) [facility] RegionalBasi Metabolic Panel (NA, K, CL, CO2, GLUCOSE, BUN, CREATININE, CA)2021-05-21 09:49:03 Test Item Value Reference Range Interpretation Comments NA (test code = 132 mmol/L 135-145 L 9993391092) K (test code = 4.3 mmol/L 3.5-5.0 2349751913) CL (test code = 105 mmol/L 98-108 0885096291) CO2 TOTAL (test code = 21 mmol/L 23-31 L 1500054221) AGAP (test code = 2-16 9153432774) BUN (test code = 25 mg/dL 7-23 H 9387859976) GLUCOSE (test code = 98 mg/dL 70-110 9764603179) CREATININE (test code = 1.20 mg/dL 0.60-1.25 2128058787) CALCIUM (test code = 8.4 mg/dL 8.6-10.6 L 7537784348) eGFR (test code = mL/min/1.73m2 8544045476) GILBERTO (test code = GILBERTO) Association of [...] tests). Lab Interpretation Abnormal (test code = 29543-3) [facility] with Rxigqcpgkhzb9521-32-44 09:22:22 Test Item Value Reference Range Interpretation Comments WBC (test code = See_Comment [Automated 2210-2) message] The sy stem which generated this [...] RDW-SD (test code = 45.6 fL 38.5-51.6 72345-0) RDW-CV (test code = 13.7 % 12.1-15.4 788-0) PLT (test code = See_Comment [Automated 777-3) message] The sy stem which generated this result transmitted reference range : 150 - 328 10*3/ ?L. The reference r meredith was not used to interpret this result as normal/abnormal . MPV (test code = 9.7 fL 9.8-13.0 L 21877-1) NRBC/100 WBC (test See_Comment [Automat ed code = 6470671295) message] The system which generated this result transmitted reference range : 0.0 - 10.0 /100 WBCs. The refer ence range was not u sed to interpret th is result as normal/abnormal . NRBC x10^3 (test code <0.01 See_Comment [Auto mated = 1205521803) message] The s ystem which generated this result transmitted reference range : 10*3/?L. The reference range was not used to interpret this result as normal/abnormal . GRAN MAT (NEUT) % 49.4 % (test code = 770-8) IMM GRAN % (test code 0.60 % = 5870517884) LYMPH % (test code = 35.2 % 736-9) MONO % (test code = 11.9 % 5905-5) EOS % (test code = 2.1 % 713-8) BASO % (test code = 0.8 % 706-2) GRAN MAT x10^3(ANC) 2.33 10*3/uL 1.99-6.95 (test code = 5812408806) IMM GRAN x10^3 (test 0.03 10*3/uL 0.00-0.06 code = 4277517153) LYMPH x10^3 (test code 1.66 10*3/uL 1.09-3.23 = 731-0) MONO x10^3 (test code 0.56 10*3/uL 0.36-1.02 = 742-7) EOS x10^3 (test code = 0.10 10*3/uL 0.06-0.53 711-2) BASO x10^3 (test code 0.04 10*3/uL 0.01-0.09 = 704-7) Lab Interpretation Abnormal (test code = 54284-6) [facility]20[facility] 20:21:19 Test Item Value Reference Range Interpretation Comments LIPASE (test code = 6322709949) 307 U/L 0-220 H Lab Interpretation (test code = Abnormal 08445-2) [facility]COMP[facility] METABOLIC PANEL (56139)2021-05-20 20:21:19 Test Item Value Reference Range Interpretation Comments NA (test code = 132 mmol/L 135-145 L 7182728893) K (test code = 4.3 mmol/L 3.5-5.0 3963525317) CL (test code = 100 mmol/L 98-108 4068345903) CO2 TOTAL (test code = 18 mmol/L 23-31 L 9160113607) AGAP (test code = 2-16 5002785784) BUN (test code = 32 mg/dL 7-23 H 1966677755) GLUCOSE (test code = 100 mg/dL 70-110 4734158172) CREATININE (test code = 1.76 mg/dL 0.60-1.25 H 6052318150) TOTAL BILI (test code = 0.7 mg/dL 0.1-1.7 2869102033) CALCIUM (test code = 9.6 mg/dL 8.6-10.6 3225904195) T PROTEIN (test code = 7.5 g/dL 6.3-8.2 7008009181) ALBUMIN (test code = 4.7 g/dL 3.5-5.0 6705409638) ALK PHOS (test code = 104 U/L 34-122 2356699769) ALTv (test code = 23 U/L 5-50 1742-6) AST(SGOT) (test code = 29 U/L 13-40 7006235219) eGFR (test code = mL/min/1.73m2 8884862047) GILBERTO (test code = GILBERTO) Association of [...] tests). Lab Interpretation Abnormal (test code = 24914-0) [facility] WITH [id number] 20:15:39 Test Item Value Reference Range Interpretation Comments WBC (test code = See_Comment [Automated message] 6690-2) The system [employer] generated this result transmitted ref erence range: 4.20 - 1 0.70 10*3/?L. The re ference range was not u sed to interpret this result as normal/abnor mal. RBC (test code = See_Comment [Automated message] 789-8) The system [employer] generated this result transmitted ref erence range: [...] RDW-SD (test code 44.8 fL 38.5-51.6 = 75846-5) RDW-CV (test code 13.7 % 12.1-15.4 = 788-0) PLT (test code = See_Comment [Automated message] 777-3) The system [employer] generated this result transmitted ref erence range: 150 - 32 8 10*3/?L. The re ference range was not u sed to interpret this result as normal/abnor mal. MPV (test code = 9.8 fL 9.8-13.0 57570-2) NRBC/100 WBC (test See_Comment [Automat ed message] code = 2567419464) The [employer] which generated this result transmitted ref erence range: 0.0 - 10 .0 /100 WBCs. The refer ence range was not u sed to interpret this result as normal/abnor mal. NRBC x10^3 (test <0.01 See_Comment [Automated message] code = 3376260448) The syste m which generated this result transmitted ref erence range: 10*3/?L. The reference range was not used to interpr et this result as normal/abnormal . GRAN MAT (NEUT) % 55.9 % (test code = 770-8) IMM GRAN % (test 0.40 % code = 4700643326) LYMPH % (test code 32.5 % = 736-9) MONO % (test code 9.4 % = 5905-5) EOS % (test code = 1.2 % 713-8) BASO % (test code 0.6 % = 706-2) GRAN MAT 3.87 10*3/uL 1.99-6.95 x10^3(ANC) (test code = 2681510015) IMM GRAN x10^3 0.03 10*3/uL 0.00-0.06 (test code = 5929124451) LYMPH x10^3 (test 2.25 10*3/uL 1.09-3.23 code = 731-0) MONO x10^3 (test 0.65 10*3/uL 0.36-1.02 code = 742-7) EOS x10^3 (test 0.08 10*3/uL 0.06-0.53 code = 711-2) BASO x10^3 (test 0.04 10*3/uL 0.01-0.09 code = 704-7) [facility] RegionalL[facility] Acid Whole Uhiln4163-73-10 20:07:57 Test Item Value Reference Range Interpretation Comments LACTIC ACID (test code = 1.81 mmol/L 0.50-2.20 0757027301) Lab Interpretation (test code = Normal 90759-0) [facility] Metabolic Panel (NA, K, CL, CO2, GLUCOSE, BUN, CREATININE, CA)2021-05-08 10:32:35 Test Item Value Reference Range Interpretation Comments NA (test code = 135 mmol/L 135-145 1798296909) K (test code = 4.2 mmol/L 3.5-5.0 2790189604) CL (test code = 106 mmol/L 98-108 4287000551) CO2 TOTAL (test code 23 mmol/L 23-31 = 7442357835) AGAP (test code = 2-16 7415287391) BUN (test code = 22 mg/dL 7-23 5487583633) GLUCOSE (test code = 87 mg/dL 70-110 5346266537) CREATININE (test code 1.21 mg/dL 0.60-1.25 = 6524494095) CALCIUM (test code = 8.7 mg/dL 8.6-10.6 0047304608) eGFR (test code = mL/min/1.73m2 5900665262) GILBERTO (test code = GILBERTO) Association of [...] or urine or abnormalities in imaging tests). [facility] Metabolic Panel (NA, K, CL, CO2, GLUCOSE, BUN, CREATININE, CA)2021-05-08 10:32:35 Test Item Value Reference Range Interpretation Comments NA (test code = 135 mmol/L 135-145 9036326888) K (test code = 4.2 mmol/L 3.5-5.0 4959881240) CL (test code = 106 mmol/L 98-108 6691645768) CO2 TOTAL (test code 23 mmol/L 23-31 = 4516010372) AGAP (test code = 2-16 3862853272) BUN (test code = 22 mg/dL 7-23 2373256853) GLUCOSE (test code = 87 mg/dL 70-110 5199687418) CREATININE (test code 1.21 mg/dL 0.60-1.25 = 4698458724) CALCIUM (test code = 8.7 mg/dL 8.6-10.6 3478425116) eGFR (test code = mL/min/1.73m2 5393300770) GILBERTO (test code = GILBERTO) Association of [...] or urine or abnormalities in imaging tests). [facility] with Sagssjxjjlbs4093-15-79 10:12:52 Test Item Value Reference Range Interpretation Comments WBC (test code = See_Comment [Automated 3512-2) message] The sy stem which generated this result transmitted reference range : 4.20 - 10.70 10*3/?L. The reference range was not used to interpret this result as normal/abnormal . RBC (test code = See_Comment L [Automated 649-8) message] The sy stem which generated this [...] RDW-SD (test code = 48.4 fL 38.5-51.6 07105-7) RDW-CV (test code = 14.0 % 12.1-15.4 788-0) PLT (test code = See_Comment [Automated 777-3) message] The sy stem which generated this result transmitted reference range : 150 - 328 10*3/ ?L. The reference r meredith was not used to interpret this result as normal/abnormal . MPV (test code = 9.6 fL 9.8-13.0 L 96958-3) NRBC/100 WBC (test See_Comment [Automat ed code = 8116371250) message] The system which generated this result transmitted reference range : 0.0 - 10.0 /100 WBCs. The refer ence range was not u sed to interpret th is result as normal/abnormal . NRBC x10^3 (test code <0.01 See_Comment [Auto mated = 5293230058) message] The s ystem which generated this result transmitted reference range : 10*3/?L. The reference range was not used to interpret this result as normal/abnormal . GRAN MAT (NEUT) % 55.6 % (test code = 770-8) IMM GRAN % (test code 0.20 % = 3359298567) LYMPH % (test code = 31.5 % 736-9) MONO % (test code = 9.9 % 5905-5) EOS % (test code = 2.0 % 713-8) BASO % (test code = 0.8 % 706-2) GRAN MAT x10^3(ANC) 2.76 10*3/uL 1.99-6.95 (test code = 3979475768) IMM GRAN x10^3 (test <0.03 0.00-0.06 code = 7436646841) LYMPH x10^3 (test code 1.56 10*3/uL 1.09-3.23 = 731-0) MONO x10^3 (test code 0.49 10*3/uL 0.36-1.02 = 742-7) EOS x10^3 (test code = 0.10 10*3/uL 0.06-0.53 711-2) BASO x10^3 (test code 0.04 10*3/uL 0.01-0.09 = 704-7) Lab Interpretation Abnormal (test code = 91399-4) [facility] with Jqqodsmxsibk3853-68-12 10:12:52 Test Item Value Reference Range Interpretation [...] RDW-SD (test code = 48.4 fL 38.5-51.6 36680-2) RDW-CV (test code = 14.0 % 12.1-15.4 788-0) PLT (test code = See_Comment [Automated 777-3) message] The sy stem which generated this result transmitted reference range : 150 - 328 10*3/ ?L. The reference r meredith was not used to interpret this result as normal/abnormal . MPV (test code = 9.6 fL 9.8-13.0 L 38288-5) NRBC/100 WBC (test See_Comment [Automat ed code = 0433614012) message] The system which generated this result transmitted reference range : 0.0 - 10.0 /100 WBCs. The refer ence range was not u sed to interpret th is result as normal/abnormal . NRBC x10^3 (test code <0.01 See_Comment [Auto mated = 3103596862) message] The s ystem which generated this result transmitted reference range : 10*3/?L. The reference range was not used to interpret this result as normal/abnormal . GRAN MAT (NEUT) % 55.6 % (test code = 770-8) IMM GRAN % (test code 0.20 % = 2863721356) LYMPH % (test code = 31.5 % 736-9) MONO % (test code = 9.9 % 5905-5) EOS % (test code = 2.0 % 713-8) BASO % (test code = 0.8 % 706-2) GRAN MAT x10^3(ANC) 2.76 10*3/uL 1.99-6.95 (test code = 9972488133) IMM GRAN x10^3 (test <0.03 0.00-0.06 code = 5798055804) LYMPH x10^3 (test code 1.56 10*3/uL 1.09-3.23 = 731-0) MONO x10^3 (test code 0.49 10*3/uL 0.36-1.02 = 742-7) EOS x10^3 (test code = 0.10 10*3/uL 0.06-0.53 711-2) BASO x10^3 (test code 0.04 10*3/uL 0.01-0.09 = 704-7) Lab Interpretation Abnormal (test code = 58059-3) [facility] METABOLIC PANEL (NA, K, CL, CO2, GLUCOSE, BUN, CREATININE, CA)2021-05-08 01:11:57 Test Item Value Reference Range Interpretation Comments NA (test code = 134 mmol/L 135-145 L 2084211123) K (test code = 4.7 mmol/L 3.5-5.0 7076918122) CL (test code = 100 mmol/L 98-108 3165990236) CO2 TOTAL (test code = 24 mmol/L 23-31 7269944261) AGAP (test code = 2-16 7831097113) BUN (test code = 27 mg/dL 7-23 H 7579051263) GLUCOSE (test code = 94 mg/dL 70-110 6069588538) CREATININE (test code = 1.31 mg/dL 0.60-1.25 H 3424940117) CALCIUM (test code = 9.5 mg/dL 8.6-10.6 6270778266) eGFR (test code = mL/min/1.73m2 0095392637) GILBERTO (test code = GILBERTO) Association of [...] tests). Lab Interpretation Abnormal (test code = 66895-2) [facility]98704[facility] (ALB,T.PRO,BILI T,BU/BC,ALT,AST,ALK PHOS)2021-05-08 01:11:57 Test Item Value Reference Range Interpretation Comments TOTAL BILI (test code = 4072806980) 0.8 mg/dL 0.1-1.1 BILI UNCON (test code = 3465368000) 0.2 mg/dL 0.1-1.1 BILI CONJ (test code = 3701302925) 0.0 mg/dL 0.0-0.3 T PROTEIN (test code = 8436256240) 7.1 g/dL 6.3-8.2 ALBUMIN (test code = 1112227193) 4.4 g/dL 3.5-5.0 ALK PHOS (test code = 5706251493) 88 U/L 34-122 ALTv (test code = 1742-6) 40 U/L 5-50 AST(SGOT) (test code = 7547058252) 38 U/L 13-40 Lab Interpretation (test code = Normal 67240-1) [facility] (NA, K, CL, CO2, GLUCOSE, BUN, CREATININE, CA)2021-05-08 01:11:57 Test Item Value Reference Range Interpretation Comments NA (test code = 134 mmol/L 135-145 L 5414686336) K (test code = 4.7 mmol/L 3.5-5.0 6109072436) CL (test code = 100 mmol/L 98-108 6865120336) CO2 TOTAL (test code = 24 mmol/L 23-31 9393213177) AGAP (test code = 2-16 2788667553) BUN (test code = 27 mg/dL 7-23 H 7875944090) GLUCOSE (test code = 94 mg/dL 70-110 3990728785) CREATININE (test code = 1.31 mg/dL 0.60-1.25 H 6132350747) CALCIUM (test code = 9.5 mg/dL 8.6-10.6 0869949597) eGFR (test code = mL/min/1.73m2 0456336600) GILBERTO (test code = GILBERTO) Association of [...] tests). Lab Interpretation Abnormal (test code = 17880-4) [facility] (ALB,T.PRO,BILI T,BU/BC,ALT,AST,ALK PHOS)2021-05-08 01:11:57 Test Item Value Reference Range Interpretation Comments TOTAL BILI (test code = 7410243626) 0.8 mg/dL 0.1-1.1 BILI UNCON (test code = 6558435188) 0.2 mg/dL 0.1-1.1 BILI CONJ (test code = 6153364285) 0.0 mg/dL 0.0-0.3 T PROTEIN (test code = 5098664004) 7.1 g/dL 6.3-8.2 ALBUMIN (test code = 6865331663) 4.4 g/dL 3.5-5.0 ALK PHOS (test code = 9853284644) 88 U/L 34-122 ALTv (test code = 1742-6) 40 U/L 5-50 AST(SGOT) (test code = 7474646277) 38 U/L 13-40 Lab Interpretation (test code = Normal 16817-7) [facility] WITH [id number] 00:59:56 Test Item Value Reference Range Interpretation [...] RDW-SD (test code = 46.9 fL 38.5-51.6 20309-9) RDW-CV (test code = 13.9 % 12.1-15.4 788-0) PLT (test code = See_Comment [Automated 777-3) message] The sy stem which generated this result transmitted reference range : 150 - 328 10*3/ ?L. The reference r meredith was not used to interpret this result as normal/abnormal . MPV (test code = 10.0 fL 9.8-13.0 04273-6) NRBC/100 WBC (test See_Comment [Automat ed code = 4657939717) message] The system which generated this result transmitted reference range : 0.0 - 10.0 /100 WBCs. The refer ence range was not u sed to interpret th is result as normal/abnormal . NRBC x10^3 (test code <0.01 See_Comment [Auto mated = 0848504326) message] The s ystem which generated this result transmitted reference range : 10*3/?L. The reference range was not used to interpret this result as normal/abnormal . GRAN MAT (NEUT) % 53.9 % (test code = 770-8) IMM GRAN % (test code 0.30 % = 2756949934) LYMPH % (test code = 32.0 % 736-9) MONO % (test code = 11.6 % 5905-5) EOS % (test code = 1.6 % 713-8) BASO % (test code = 0.6 % 706-2) GRAN MAT x10^3(ANC) 3.67 10*3/uL 1.99-6.95 (test code = 3348674839) IMM GRAN x10^3 (test <0.03 0.00-0.06 code = 4550347222) LYMPH x10^3 (test code 2.18 10*3/uL 1.09-3.23 = 731-0) MONO x10^3 (test code 0.79 10*3/uL 0.36-1.02 = 742-7) EOS x10^3 (test code = 0.11 10*3/uL 0.06-0.53 711-2) BASO x10^3 (test code 0.04 10*3/uL 0.01-0.09 = 704-7) Lab Interpretation Abnormal (test code = 74161-7) [facility] WITH [id number] 00:59:56 Test Item Value Reference Range Interpretation Comments WBC (test code = See_Comment [Automated 5571-2) message] The sy stem which generated this result transmitted reference range : 4.20 - 10.70 10*3/?L. The reference range was not used to interpret this result as normal/abnormal . RBC (test code = See_Comment L [Automated 198-8) message] The sy stem which generated this [...] RDW-SD (test code = 46.9 fL 38.5-51.6 54433-7) RDW-CV (test code = 13.9 % 12.1-15.4 788-0) PLT (test code = See_Comment [Automated 777-3) message] The sy stem which generated this result transmitted reference range : 150 - 328 10*3/ ?L. The reference r meredith was not used to interpret this result as normal/abnormal . MPV (test code = 10.0 fL 9.8-13.0 30347-9) NRBC/100 WBC (test See_Comment [Automat ed code = 0630654677) message] The system which generated this result transmitted reference range : 0.0 - 10.0 /100 WBCs. The refer ence range was not u sed to interpret th is result as normal/abnormal . NRBC x10^3 (test code <0.01 See_Comment [Auto mated = 8833599008) message] The s ystem which generated this result transmitted reference range : 10*3/?L. The reference range was not used to interpret this result as normal/abnormal . GRAN MAT (NEUT) % 53.9 % (test code = 770-8) IMM GRAN % (test code 0.30 % = 1507036621) LYMPH % (test code = 32.0 % 736-9) MONO % (test code = 11.6 % 5905-5) EOS % (test code = 1.6 % 713-8) BASO % (test code = 0.6 % 706-2) GRAN MAT x10^3(ANC) 3.67 10*3/uL 1.99-6.95 (test code = 4220372659) IMM GRAN x10^3 (test <0.03 0.00-0.06 code = 4717801404) LYMPH x10^3 (test code 2.18 10*3/uL 1.09-3.23 = 731-0) MONO x10^3 (test code 0.79 10*3/uL 0.36-1.02 = 742-7) EOS x10^3 (test code = 0.11 10*3/uL 0.06-0.53 711-2) BASO x10^3 (test code 0.04 10*3/uL 0.01-0.09 = 704-7) Lab Interpretation Abnormal (test code = 08851-6) [facility] W/AUTO [id number] 09:20:00 Test Item Value Reference Range Interpretation [...] (test code NO = MDIFF) CBC W/AUTO [id number] 08:59:00 Test Item Value Reference Range Interpretation [...] REQUIRED (test code = MDIFF) BASIC METABOLIC [id number] 08:21:00 Test Item Value Reference Range Interpretation [...] 8.4 mg/dL 8.0-10.5 N CA) BASIC METABOLIC [id number] 08:34:00 Test Item Value Reference Range Interpretation [...] 8.4 mg/dL 8.0-10.5 N CA) CBC W/AUTO [id number] 07:41:00 Test Item Value Reference Range Interpretation [...] = MDIFF) UA RFLX MICR CULT IF [id number] 10:10:00 Test Item Value Reference Range Interpretation [...] Suprapubic Pain Temperature > 100.4 FSpecimen Description: [facility] [id number] 04:13:00 Test Item Value Reference Range Interpretation [...] mg/dL 8.0-10.5 N CA) Coronavirus 2019 nCoV [id number] 22:03:00 Test Item Value Reference Range Interpretation Comments Coronavirus 2019 Negative Negative Performed b y certified nCoV Bedside (die tester at [facility] code = CtrNegative res ults should [id number]) be treated as presumptive and, ifinconsis tent with clinical signs and symptoms or necessaryfor patient management, fifi uld be tested with an alternativemole cular assay. Negative result s do not preclude AHCD-UxG-7wdkwe tion and should not be u sed as the sole basis forp atient management deci sions. Negative result s should beconsidered in the context of a patient's recent exposures,histo ry, presence of clinical sig ns and symptoms consis tentwith COVID-19. CBC W/AUTO [id number] 21:11:00 Test Item Value Reference Range Interpretation [...] MX#) 0.6 k/mm3 0.1-0.8 N BASIC METABOLIC [id number] 19:00:00 Test Item Value Reference Range Interpretation [...] POCGLU) 92 MG/DL - CT ABD PELVIS [id number]/[id number] 00:00:00 [facility] : 1970 Sex: MName: DORA JOSEPHNADIR Erazo FSED : 1970 Age/S: 51 / M [address] [facility] Unit #: [id number] Loc: Elisoe Erazo [address] Phys: Marcello Benoit MD Acct: [id number] Dis Date: Status: REG ER PHONE #: Exam Date: 04/28/2021 3497 FAX #: Reason: epigastric and LLQ pain, R-sided colostomy EXAMS: CPT CODE: [id number] CT ABD PELVIS W/CONT 80591 PROCEDURE INFORMATION: Exam: CT Abdomen And PelvisWith Contrast Exam date and time: 04/28/2021 7:11 [...] dilation. Spleen: Normal. No splenomegaly. Adrenal glands: Normal.No mass. Kidneys and ureters: Normal. No hydronephrosis. [...] The aorta demonstrates mild atherosclerotic calcification. Lymph nodes:Unremarkable. No enlarged lymph nodes. Urinary bladder: Urinary bladder is contracted otherwise unremarkable. PAGE 1 Signed Report (CONTINUED) Name: DORA JOSEPH FSED : 1970 Age/S:51 / M [address] [facility] Unit #: [id number] Loc: Eliseo Erazo [address] Phys: Marcello Benoit MD Acct: [id number] Dis Date: Status: REG ER PHONE #: Exam Date: 04/28/20211913 FAX #: Reason: epigastric and LLQ pain, R-sided colostomy EXAMS: CPT CODE: [id number] CT ABD PELVIS W/CONT 68015 <Continued> Reproductive: Unremarkable as visualized. Bones/joints: Unremarkable. No acute fracture. Soft tissues: Unremarkable. IMPRESSION: 1. 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 2. Mild long segment bowel wall thickening/mucosal prominence compatible with an enteritis. No evidence for obstruction. at 195 Reported and signed by: Hector Nichols M.D. CC: Marcello Benoit MD Technologist:Stephanie Albrecht RT(R)(CT) CTDI: DLP: Trnscb Date/Time: 04/28/2021 (1955) t.FLEXR.KWL Orig Print D/T: S: 04/28/2021 (1955) PAGE 2 Signed ReportBasic Metabolic Panel (NA, K, CL, CO2, GLUCOSE, BUN, CREATININE, CA)2020-08-23 10:29:00 Test Item Value Reference Range Interpretation Comments NA (test code = 139 mmol/L 135-145 9868634958) K (test code = 4.0 mmol/L 3.5-5 7732049614) CL (test code = 108 mmol/L 98-108 7707673269) CO2 TOTAL (test code = 22 mmol/L 23-31 L 7876074994) AGAP (test code = 2-16 7334905496) BUN (test code = 25 mg/dL 7-23 H 5001919233) GLUCOSE (test code = 91 mg/dL 70-110 8555407492) CREATININE (test code = 1.14 mg/dL 0.6-1.25 1811026596) CALCIUM (test code = 8.9 mg/dL 8.6-10.6 9638645397) eGFR Calculation mL/min/1.73m2 (Non-) (test code = 3015589395) eGFR Calculation mL/min/1.73m2 () (test code = 1623755296) GILBERTO (test code = GILBERTO) Association of [...] tests). Lab Interpretation Abnormal (test code = 45902-9) [facility] BranchPRO[facility] / [id number] 10:13:00 Test Item Value Reference Range Interpretation Comments WBC (test code = 6690-2) See_Comment [A utomated message] The system [employer] generated this result transmit dain reference range : 4.20 - 10.70 10*3/?L. The reference range was not used to interpret this result as normal/abnormal . RBC (test code = 789-8) See_Comment L [Au tomated message] The system [facility] generated this result transmit dain reference [...] 777-3) See_Comment [Au tomated message] The system [facility] generated this result transmit dain reference range : 150 - 328 10*3/?L. The reference range was not used to interpret this result as normal/abnormal . MPV (test code = 9.0 fL 9.8-13 L 32529-6) RDW-CV (test code = 18.7 % 12.1-15.4 H 788-0) RDW-SD (test code = 59.7 fL 38.5-51.6 H 80370-0) NRBC x10^3 (test code = <0.01 See_Comment [Au tomated message] 9343949453) The system [facility] generated this result transmit dain reference range : 10*3/?L. The reference range was not used to interpret this result as normal/abnormal . NRBC/100 WBC (test code See_Comment [Au tomated message] = 5358843783) The system [facility] generated this result transmit dain reference range : 0.0 - 10.0 /100 WBC s. The reference r meredith was not used to interpret this result as normal/abnormal . IPF % (test code = 9270402883) Lab Interpretation (test Abnormal code = 72721-5) [facility] ([facility] NOW RAPID TESTING)2020-08-23 00:56:00 Test Item Value Reference Range Interpretation Comments SARS-CoV-2 Rapid ID NOW Not Detected Not Detected (test code = 80570-4) GILBERTO (test code = GILBERTO) ID NOW COVID-19 Assay is an isothermal nucleic acid amplification test intended for the qualitative detection of nucleic acid from SARS-CoV-2 viral RNA in nasopharyngeal (INSPECTOR ADVANCED COMPOSITE) specimens. It is used under Emergency Use [...] indicated. Lab Interpretation Normal (test code = 52140-8) [facility] Metabolic Panel (NA, K, CL, CO2, GLUCOSE, BUN, CREATININE, CA)2020-08-22 22:36:00 Test Item Value Reference Range Interpretation Comments NA (test code = 133 mmol/L 135-145 L 2918270475) K (test code = 4.5 mmol/L 3.5-5 4768878577) CL (test code = 104 mmol/L 98-108 6466032216) CO2 TOTAL (test code = 25 mmol/L 23-31 8321480908) AGAP (test code = 2-16 2829723695) BUN (test code = 27 mg/dL 7-23 H 5932429261) GLUCOSE (test code = 94 mg/dL 70-110 8292914196) CREATININE (test code = 1.33 mg/dL 0.6-1.25 H 8873065387) CALCIUM (test code = 9.5 mg/dL 8.6-10.6 3296270650) eGFR Calculation mL/min/1.73m2 (Non-) (test code = 1900174122) eGFR Calculation mL/min/1.73m2 () (test code = 8553512904) GILBERTO (test code = GILBERTO) Association of [...] tests). Lab Interpretation Abnormal (test code = 22733-6) [facility] (ALB, T.PRO, BILI T, BU/BC, ALT, AST, ALK PHOS)2020-08-22 22:36:00 Test Item Value Reference Range Interpretation Comments TOTAL BILI (test code = 7989529497) 0.4 mg/dL 0.1-1.1 BILI UNCON (test code = 5895909085) 0.1 mg/dL 0.1-1.1 BILI CONJ (test code = 6303745102) 0.0 mg/dL 0-0.3 T PROTEIN (test code = 7772980298) 6.8 g/dL 6.3-8.2 ALBUMIN (test code = 8465043881) 4.0 g/dL 3.5-5 ALK PHOS (test code = 1097836916) 78 U/L 34-122 ALTv (test code = 1742-6) 35 U/L 5-50 AST(SGOT) (test code = 2745325664) 29 U/L 13-40 Lab Interpretation (test code = Normal 34224-9) [facility] with [id number] 22:15:00 Test Item Value Reference Range Interpretation [...] (test code = 60.6 fL 38.5-51.6 H 21510-5) RDW-CV (test code = 19.0 % 12.1-15.4 H 788-0) PLT (test code = See_Comment [Automated 777-3) message] The sy stem which generated this result transmitted reference range : 150 - 328 10*3/ ?L. The reference r meredith was not used to interpret this result as normal/abnormal . MPV (test code = 9.3 fL 9.8-13 L 31284-0) NRBC/100 WBC (test See_Comment [Automat ed code = 5238797416) message] The system which generated this result transmitted reference range : 0.0 - 10.0 /100 WBCs. The refer ence range was not u sed to interpret th is result as normal/abnormal . NRBC x10^3 (test code <0.01 See_Comment [Auto mated = 5893082361) message] The s ystem which generated this result transmitted reference range : 10*3/?L. The reference range was not used to interpret this result as normal/abnormal . GRAN MAT (NEUT) % 58.6 % (test code = 770-8) IMM GRAN % (test code 0.60 % = 7224322501) LYMPH % (test code = 28.2 % 736-9) MONO % (test code = 9.5 % 5905-5) EOS % (test code = 2.4 % 713-8) BASO % (test code = 0.7 % 706-2) GRAN MAT x10^3(ANC) 3.14 10*3/uL 1.99-6.95 (test code = 8368739620) IMM GRAN x10^3 (test 0.03 10*3/uL 0-0.06 code = 1916937799) LYMPH x10^3 (test code 1.51 10*3/uL 1.09-3.23 = 731-0) MONO x10^3 (test code 0.51 10*3/uL 0.36-1.02 = 742-7) EOS x10^3 (test code = 0.13 10*3/uL 0.06-0.53 711-2) BASO x10^3 (test code 0.04 10*3/uL 0.01-0.09 = 704-7) Lab Interpretation Abnormal (test code = 54338-3) [facility]CT SOFT TISSUE NECK W [id number] 00:47:10Impression: 1. Patent aerodigestive tract.2. No discrete [...] glands are normal. Thyroid gland is unremarkable. Office Electrician spaces are normal. Buccal spaces are normal. [...] submandibular glands are normal. Thyroid gland is unremarkable.Office Electrician spaces are normal. Buccal spaces are normal. [...] or abscess is identified.RL: [id number] of Report [facility]He[facility] CenterCOVID-[facility] (ID NOW RAPID TESTING)2020-07-09 23:23:00 Test Item Value Reference Range Interpretation Comments SARS-CoV-2 Rapid ID NOW Not Detected Not Detected (test code = 33876-7) GILBERTO (test code = GILBERTO) ID NOW COVID-19 Assay is an isothermal nucleic acid amplification test intended for the qualitative detection of nucleic acid from SARS-CoV-2 viral RNA in nasopharyngeal (INSPECTOR ADVANCED COMPOSITE) specimens. It is used under Emergency Use [...] indicated. Lab Interpretation Normal (test code = 10351-4) [facility] RegionalUrinalysis2020-11-16 23:21:00 Test Item Value Reference Range Interpretation Comments APPEARANCE (test code = Clear Clear 9803007271) COLOR (test code = Yellow Yellow 3025282652) PH (test code = 4.8-8.0 6067818750) SP GRAVITY (test code = 1.003-1.030 0794421228) GLU U QUAL (test code = Normal Normal 6278931547) BLOOD (test code = Negative Negative 0289524068) KETONES (test code = Negative Negative 9537830987) PROTEIN (test code = 30 mg/dL Negative A 2887-8) UROBILIN (test code = Normal Normal 4302275548) BILIRUBIN (test code = Negative Negative 9823641208) NITRITE (test code = Negative Negative 7136767964) LEUK ROGER (test code = Negative Negative 3602283942) RBC/HPF (test code = <1 See_Comment [Autom ated message] 1411496715) The system [employer] generated this result transmitted ref erence range: 0 - 3 HP F. The reference range was not used to int erpret this result as normal/abnormal . WBC/HPF (test code = See_Comment [Autom ated message] 3266275865) The system [employer] generated this result transmitted ref erence range: 0 - 5 HP F. The reference range was not used to int erpret this result as normal/abnormal . BACTERIA (test code = Negative Negative 0587702227) MUCOUS (test code = Moderate Negative LPF A 9311930560) HYAL CAST (test code = See_Comment H [Aut omated message] 0605374927) The system [employer] generated this result transmitted ref erence range: <=2 LPF. The reference range was not used to int erpret this result as normal/abnormal . Lab Interpretation (test Abnormal code = 17659-1) [facility] Metabolic Panel (NA, K, CL, CO2, GLUCOSE, BUN, CREATININE, CA)2020-07-09 23:20:00 Test Item Value Reference Range Interpretation Comments NA (test code = 135 mmol/L 135-145 2812699362) K (test code = 3.9 mmol/L 3.5-5 5766598596) CL (test code = 107 mmol/L 98-108 9748559650) CO2 TOTAL (test code = 20 mmol/L 23-31 L 9382189314) AGAP (test code = 2-16 5752526446) BUN (test code = 27 mg/dL 7-23 H 0847613086) GLUCOSE (test code = 86 mg/dL 70-110 7643934187) CREATININE (test code = 1.11 mg/dL 0.6-1.25 5350014607) CALCIUM (test code = 9.0 mg/dL 8.6-10.6 4293274530) eGFR Calculation mL/min/1.73m2 (Non-) (test code = 7764179296) eGFR Calculation mL/min/1.73m2 () (test code = 0666001376) GILBERTO (test code = GILBERTO) Association of [...] tests). Lab Interpretation Abnormal (test code = 30728-2) [facility] RegionalRAPID STREP SCREEN FOR GROUP [id number] 23:11:00 Test Item Value Reference Range Interpretation Comments Streptococcus pyogenes (group A) Negative Negative antigen (test code = 49196-1) Lab Interpretation (test code = Normal 44506-1) [facility] with Devzdxdjeuuo1221-17-68 23:02:00 Test Item Value Reference Range Interpretation Comments WBC (test code = See_Comment [Automated 4900-2) message] The sy stem which generated this result transmitted reference range : 4.20 - 10.70 10*3/?L. The reference range was not used to interpret this result as normal/abnormal . RBC (test code = See_Comment L [Automated 428-8) message] The sy stem which generated this [...] (test code = 55.5 fL 38.5-51.6 H 96892-1) RDW-CV (test code = 18.9 % 12.1-15.4 H 788-0) PLT (test code = See_Comment [Automated 777-3) message] The sy stem which generated this result transmitted reference range : 150 - 328 10*3/ ?L. The reference r meredith was not used to interpret this result as normal/abnormal . MPV (test code = 8.9 fL 9.8-13 L 07830-9) NRBC/100 WBC (test See_Comment [Automat ed code = 8669894779) message] The system which generated this result transmitted reference range : 0.0 - 10.0 /100 WBCs. The refer ence range was not u sed to interpret th is result as normal/abnormal . NRBC x10^3 (test code <0.01 See_Comment [Auto mated = 8710693020) message] The s ystem which generated this result transmitted reference range : 10*3/?L. The reference range was not used to interpret this result as normal/abnormal . GRAN MAT (NEUT) % 59.4 % (test code = 770-8) IMM GRAN % (test code 0.20 % = 1915492062) LYMPH % (test code = 29.9 % 736-9) MONO % (test code = 9.0 % 5905-5) EOS % (test code = 1.2 % 713-8) BASO % (test code = 0.3 % 706-2) GRAN MAT x10^3(ANC) 3.56 10*3/uL 1.99-6.95 (test code = 3289085204) IMM GRAN x10^3 (test <0.03 0-0.06 code = 1125423512) LYMPH x10^3 (test code 1.79 10*3/uL 1.09-3.23 = 731-0) MONO x10^3 (test code 0.54 10*3/uL 0.36-1.02 = 742-7) EOS x10^3 (test code = 0.07 10*3/uL 0.06-0.53 711-2) BASO x10^3 (test code <0.03 0.01-0.09 = 704-7) Lab Interpretation Abnormal (test code = 87674-9) [facility]ysis2020-[facility]-13 13:37:00 Test Item Value Reference Range Interpretation Comments APPEARANCE (test code = Hazy Clear A 2570993340) COLOR (test code = Yellow Yellow 4803403656) PH (test code = 4.8-8.0 4462144702) SP GRAVITY (test code = 1.003-1.030 H 2438109747) GLU U QUAL (test code = Normal Normal 0509248067) BLOOD (test code = Negative Negative 3055211447) KETONES (test code = Negative Negative 8391816635) PROTEIN (test code = Negative Negative 2887-8) UROBILIN (test code = Normal Normal 0005030192) BILIRUBIN (test code = Negative Negative 0937190093) NITRITE (test code = Negative Negative 4760377183) LEUK ROGER (test code = Negative Negative 4799737909) RBC/HPF (test code = See_Comment H [Autom ated message] 7369039921) The system [employer] generated this result transmitted ref erence range: 0 - 3 HP F. The reference range was not used to int erpret this result as normal/abnormal . WBC/HPF (test code = See_Comment [Autom ated message] 6227556862) The system [employer] generated this result transmitted ref erence range: 0 - 5 HP F. The reference range was not used to int erpret this result as normal/abnormal . BACTERIA (test code = Negative Negative 8189730631) MUCOUS (test code = Moderate Negative LPF A 0749078130) CA OXALATE (test code = See_Comment [Au tomated message] 6059997583) The system [employer] generated this result transmitted ref erence range: <=1 HPF. The reference range was not used to int erpret this result as normal/abnormal . SPERM (test code = See_Comment H [Automat ed message] 3517528376) The system [employer] generated this result transmitted ref erence range: <=1 HPF. The reference range was not used to int erpret this result as normal/abnormal . HYAL CAST (test code = See_Comment H [Aut omated message] 5002510164) The system [employer] generated this result transmitted ref erence range: <=2 LPF. The reference range was not used to int erpret this result as normal/abnormal . Lab Interpretation (test Abnormal code = 67965-3) [facility] ABDOMEN PELVIS W [id number] 13:22:00CT Abdomen and Pelvis with intravenous contrast. [...] infection. Left seminal vesicleshowed no significant enhancement. [facility], Radiant Results Inft User - 06/05/2020 8:23 [...] sign of infection. Left seminal vesicleshowed no significantenhancement.[facility] [id number] 12:40:00 Test Item Value Reference Range Interpretation Comments TROPONIN I (test <0.012 See_Comment [Automated code = 2673996735) message] The system which generated this result [...] ? Lab Interpretation Normal (test code = 54810-7) [facility] (NA, K, CL, CO2, GLUCOSE, BUN, CREATININE, CA)2020-06-05 12:28:00 Test Item Value Reference Range Interpretation Comments NA (test code = 139 mmol/L 135-145 8085575449) K (test code = 4.4 mmol/L 3.5-5 3071209112) CL (test code = 112 mmol/L 98-108 H 7229318633) CO2 TOTAL (test code = 24 mmol/L 23-31 3565052877) AGAP (test code = 2-16 7464822240) BUN (test code = 23 mg/dL 7-23 4362012696) GLUCOSE (test code = 88 mg/dL 70-110 5429169232) CREATININE (test code = 0.96 mg/dL 0.6-1.25 1667343528) CALCIUM (test code = 9.5 mg/dL 8.6-10.6 3610235475) eGFR Calculation mL/min/1.73m2 (Non-) (test code = 7927755446) eGFR Calculation mL/min/1.73m2 () (test code = 9020609921) GILBERTO (test code = GILBERTO) Association of [...] tests). Lab Interpretation Abnormal (test code = 13861-9) [facility] (ALB, T.PRO, BILI T, BU/BC, ALT, AST, ALK PHOS)2020-06-05 12:28:00 Test Item Value Reference Range Interpretation Comments TOTAL BILI (test code = 8879893008) 0.5 mg/dL 0.1-1.1 BILI UNCON (test code = 5468267834) 0.3 mg/dL 0.1-1.1 BILI CONJ (test code = 8872429033) 0.0 mg/dL 0-0.3 T PROTEIN (test code = 0074795243) 6.6 g/dL 6.3-8.2 ALBUMIN (test code = 4360279812) 3.7 g/dL 3.5-5 ALK PHOS (test code = 0615613722) 79 U/L 34-122 ALTv (test code = 1742-6) 23 U/L 5-50 AST(SGOT) (test code = 6345459579) 27 U/L 13-40 Lab Interpretation (test code = Normal 33580-4) [facility] RegionalLipase Hphni3131-82-79 12:28:00 Test Item Value Reference Range Interpretation Comments LIPASE (test code = 0661034875) 150 U/L 0-220 Lab Interpretation (test code = Normal 71122-2) [facility]CBC with Qnjotxadktky2291-01-70 12:11:00 Test Item Value Reference Range Interpretation [...] (test code = 62.2 fL 38.5-51.6 H 73457-8) RDW-CV (test code = 20.0 % 12.1-15.4 H 788-0) PLT (test code = See_Comment [Automated 777-3) message] The sy stem which generated this result transmitted reference range : 150 - 328 10*3/ ?L. The reference r meredith was not used to interpret this result as normal/abnormal . MPV (test code = 10.0 fL 9.8-13 11705-8) NRBC/100 WBC (test See_Comment [Automat ed code = 9545203035) message] The system which generated this result transmitted reference range : 0.0 - 10.0 /100 WBCs. The refer ence range was not u sed to interpret th is result as normal/abnormal . NRBC x10^3 (test code <0.01 See_Comment [Auto mated = 3106630654) message] The s ystem which generated this result transmitted reference range : 10*3/?L. The reference range was not used to interpret this result as normal/abnormal . GRAN MAT (NEUT) % 65.7 % (test code = 770-8) IMM GRAN % (test code 0.30 % = 1719427536) LYMPH % (test code = 21.2 % 736-9) MONO % (test code = 10.0 % 5905-5) EOS % (test code = 2.3 % 713-8) BASO % (test code = 0.5 % 706-2) GRAN MAT x10^3(ANC) 3.99 10*3/uL 1.99-6.95 (test code = 3081295461) IMM GRAN x10^3 (test <0.03 0-0.06 code = 7734586446) LYMPH x10^3 (test code 1.29 10*3/uL 1.09-3.23 = 731-0) MONO x10^3 (test code 0.61 10*3/uL 0.36-1.02 = 742-7) EOS x10^3 (test code = 0.14 10*3/uL 0.06-0.53 711-2) BASO x10^3 (test code 0.03 10*3/uL 0.01-0.09 = 704-7) Lab Interpretation Abnormal (test code = 28920-3) [facility] RegionalLactic Acid Whole Sqncb9961-37-04 12:04:00 Test Item Value Reference Range Interpretation Comments LACTIC ACID (test code = 1.23 mmol/L 5809649811) [facility] [id number] 14:57:23 Successful abscessogram demonstrated unchanged position of [...] consentwas obtained. Prior to beginning the procedure, Poyen Protocol was usedtoconfirm the patient's identity and planned procedure. Maximum sterilebarriers including cap, mask, momin nd hygiene, sterile gloves, sterile gown,large sterile drape and cutaneous antisepsis were used. Theskin overlying the existing drainage catheter in the right upperquadrant of the abdomen was sterilely prepped, draped and infiltrated with1 percent lidocaine. A home health care case manager image was documented prior to the injection [...] drainage catheter and with questionablefistulization to bowel. [facility], Radiant Results Inft User - 05/31/2020 9:58 AM CDTEXAMINATION: PERCUTANEOUS PERIHEPATIC ABSCESS DRAINAGE CATHETEREVALUATION/EXCHANGE.HISTORY: 50 years-old; Male; s/p Drain placement in right abdomen fluidcollection. No output for 3 consecutive days. Please eval for possibleremoval.ATTENDEES: Attending radiologist: Dr. Sadiq Gordon; Resident: Dr. Johnny Tilley;Contributing VIR resident: Dr. Leeanna Valenzuela.SEDATION: No moderate sedation was administered for this procedure.RADIATION DOSE: 7.7 mGy.TECHNIQUE: The risks, benefits and alternatives were discussed and informed consentwas obtained. Prior to beginning the procedure, Poyen Protocol was usedto confirm the patient's identity and planned procedure. Maximum sterilebarriers including cap, mask, hand hygiene, sterile gloves, sterile gown,large sterile drape and cutaneous antisepsis were used. The skin overlying the existing drainage catheter in the right upperquadrant of the abdomen was sterilely prepped, draped and infiltrated with1 percent lidocaine. A home health care case manager image was documented prior to the injection [...] by Resident: Johnny Tilley.As the attending radiologist, Ashia, Dr. Sadiq Gordon, was present inthe room during the entire procedure.I, Sadiq Gordon MD., have reviewed this study and agree with theabove report. [facility] METABOLIC PANEL (NA, K, CL, CO2, GLUCOSE, BUN, CREATININE, CA)2020-05-31 08:13:00 Test Item Value Reference Range Interpretation Comments NA (test code = 135 mmol/L 135-145 7152133223) K (test code = 4.1 mmol/L 3.5-5 4853035582) CL (test code = 99 mmol/L 98-108 9939877912) CO2 TOTAL (test code = 32 mmol/L 23-31 H 8935181746) AGAP (test code = 2-16 1999540808) BUN (test code = 14 mg/dL 7-23 1305045386) GLUCOSE (test code = 89 mg/dL 70-110 3076577570) CREATININE (test code = 0.67 mg/dL 0.6-1.25 1791454768) CALCIUM (test code = 8.2 mg/dL 8.6-10.6 L 2947522737) eGFR Calculation mL/min/1.73m2 (Non-) (test code = 7315155786) eGFR Calculation mL/min/1.73m2 () (test code = 4095043623) GILBERTO (test code = GILBERTO) Association of [...] tests). Lab Interpretation Abnormal (test code = 93078-8) [facility]2020-10-08 08:13:00 Test Item Value Reference Range Interpretation Comments MAGNESIUM (test code = 0796017553) 1.8 mg/dL 1.7-2.4 Lab Interpretation (test code = Normal 52829-4) [facility]2020-10-08 08:13:00 Test Item Value Reference Range Interpretation Comments PHOSPHORUS (test code = 2636589172) 5.2 mg/dL 2.5-5 H Lab Interpretation (test code = Abnormal 33688-1) [facility] WITH [id number] 08:05:00 Test Item Value Reference Range Interpretation [...] (test code = 57.9 fL 38.5-51.6 H 95639-9) RDW-CV (test code = 18.7 % 12.1-15.4 H 788-0) PLT (test code = See_Comment [Automated 777-3) message] The sy stem which generated this result transmitted reference range : 150 - 328 10*3/ ?L. The reference r meredith was not used to interpret this result as normal/abnormal . MPV (test code = 10.3 fL 9.8-13 12841-7) NRBC/100 WBC (test See_Comment [Automat ed code = 2356722986) message] The system which generated this result transmitted reference range : 0.0 - 10.0 /100 WBCs. The refer ence range was not u sed to interpret th is result as normal/abnormal . NRBC x10^3 (test code <0.01 See_Comment [Auto mated = 2395194183) message] The s ystem which generated this result transmitted reference range : 10*3/?L. The reference range was not used to interpret this result as normal/abnormal . GRAN MAT (NEUT) % 56.4 % (test code = 770-8) IMM GRAN % (test code 0.50 % = 6880362810) LYMPH % (test code = 26.2 % 736-9) MONO % (test code = 12.2 % 5905-5) EOS % (test code = 4.2 % 713-8) BASO % (test code = 0.5 % 706-2) GRAN MAT x10^3(ANC) 2.31 10*3/uL 1.99-6.95 (test code = 1292309491) IMM GRAN x10^3 (test <0.03 0-0.06 code = 0956666275) LYMPH x10^3 (test code 1.07 10*3/uL 1.09-3.23 L = 731-0) MONO x10^3 (test code 0.50 10*3/uL 0.36-1.02 = 742-7) EOS x10^3 (test code = 0.17 10*3/uL 0.06-0.53 711-2) BASO x10^3 (test code <0.03 0.01-0.09 = 704-7) Lab Interpretation Abnormal (test code = 83556-4) [facility] METABOLIC PANEL (NA, K, CL, CO2, GLUCOSE, BUN, CREATININE, CA)2020-05-30 09:04:00 Test Item Value Reference Range Interpretation Comments NA (test code = 138 mmol/L 135-145 5561760147) K (test code = 4.4 mmol/L 3.5-5 6130376549) CL (test code = 99 mmol/L 98-108 2403690345) CO2 TOTAL (test code = 33 mmol/L 23-31 H 1774409496) AGAP (test code = 2-16 6969374518) BUN (test code = 18 mg/dL 7-23 4891194348) GLUCOSE (test code = 86 mg/dL 70-110 1204861403) CREATININE (test code = 0.61 mg/dL 0.6-1.25 4030142111) CALCIUM (test code = 8.1 mg/dL 8.6-10.6 L 7653243845) eGFR Calculation mL/min/1.73m2 (Non-) (test code = 8230480122) eGFR Calculation mL/min/1.73m2 () (test code = 2056841332) GILBERTO (test code = GILBERTO) Association of [...] tests). Lab Interpretation Abnormal (test code = 59602-2) [facility]2020-10-07 09:04:00 Test Item Value Reference Range Interpretation Comments MAGNESIUM (test code = 9437353178) 2.0 mg/dL 1.7-2.4 Lab Interpretation (test code = Normal 91690-2) [facility]2020-10-07 09:04:00 Test Item Value Reference Range Interpretation Comments PHOSPHORUS (test code = 1696482366) 4.6 mg/dL 2.5-5 Lab Interpretation (test code = Normal 61348-7) [facility] (NA, K, CL, CO2, GLUCOSE, BUN, CREATININE, CA)2020-05-29 07:31:00 Test Item Value Reference Range Interpretation Comments NA (test code = 135 mmol/L 135-145 3893305495) K (test code = 4.0 mmol/L 3.5-5 6792101839) CL (test code = 100 mmol/L 98-108 4136512862) CO2 TOTAL (test code = 32 mmol/L 23-31 H 0409986147) AGAP (test code = 2-16 0340954204) BUN (test code = 19 mg/dL 7-23 7493592222) GLUCOSE (test code = 86 mg/dL 70-110 4473774339) CREATININE (test code = 0.68 mg/dL 0.6-1.25 7357244074) CALCIUM (test code = 8.0 mg/dL 8.6-10.6 L 8977538493) eGFR Calculation mL/min/1.73m2 (Non-) (test code = 6464007816) eGFR Calculation mL/min/1.73m2 () (test code = 5126720471) GILBERTO (test code = GILBERTO) Association of [...] tests). Lab Interpretation Abnormal (test code = 12056-3) [facility]2020-10-06 07:31:00 Test Item Value Reference Range Interpretation Comments MAGNESIUM (test code = 7549006292) 1.6 mg/dL 1.7-2.4 L Lab Interpretation (test code = Abnormal 38759-6) [facility]2020-10-06 07:31:00 Test Item Value Reference Range Interpretation Comments PHOSPHORUS (test code = 1598055046) 3.5 mg/dL 2.5-5 Lab Interpretation (test code = Normal 86967-4) [facility] OR ABSCESS CULTURE(AEROBIC/ANAEROBIC) 2020-05-28 12:35:00 Test Item Value Reference Range Interpretation Comments Aspirate or Abscess No aerobic/anaerobic Culture (test code = organisms isolated 12616-1) Gram stain (test code Occasional (Rare) = 664-3) Mononuclear cells [facility]OL[facility] (NA, K, CL, CO2, GLUCOSE, BUN, CREATININE, CA)2020-05-28 09:36:00 Test Item Value Reference Range Interpretation Comments NA (test code = 136 mmol/L 135-145 3869582725) K (test code = 4.3 mmol/L 3.5-5 9142280089) CL (test code = 102 mmol/L 98-108 1769389762) CO2 TOTAL (test code = 31 mmol/L 23-31 3302592484) AGAP (test code = 2-16 2558746088) BUN (test code = 25 mg/dL 7-23 H 9432613453) GLUCOSE (test code = 87 mg/dL 70-110 2550229260) CREATININE (test code = 0.65 mg/dL 0.6-1.25 9584455225) CALCIUM (test code = 8.2 mg/dL 8.6-10.6 L 8989782752) eGFR Calculation mL/min/1.73m2 (Non-) (test code = 1021960118) eGFR Calculation mL/min/1.73m2 () (test code = 0984999974) GILBERTO (test code = GILBERTO) Association of [...] tests). Lab Interpretation Abnormal (test code = 65389-1) [facility]2020-10-05 09:36:00 Test Item Value Reference Range Interpretation Comments MAGNESIUM (test code = 6373428041) 1.6 mg/dL 1.7-2.4 L Lab Interpretation (test code = Abnormal 07537-8) [facility]2020-10-05 09:36:00 Test Item Value Reference Range Interpretation Comments PHOSPHORUS (test code = 3033529877) 2.6 mg/dL 2.5-5 Lab Interpretation (test code = Normal 94043-4) [facility] (NA, K, CL, CO2, GLUCOSE, BUN, CREATININE, CA)2020-05-27 10:13:00 Test Item Value Reference Range Interpretation Comments NA (test code = 135 mmol/L 135-145 5967654695) K (test code = 3.9 mmol/L 3.5-5 9409863036) CL (test code = 103 mmol/L 98-108 8918769035) CO2 TOTAL (test code = 28 mmol/L 23-31 3879773132) AGAP (test code = 2-16 1833868203) BUN (test code = 20 mg/dL 7-23 8062141816) GLUCOSE (test code = 95 mg/dL 70-110 3517648529) CREATININE (test code = 0.67 mg/dL 0.6-1.25 7517913783) CALCIUM (test code = 8.2 mg/dL 8.6-10.6 L 7608772954) eGFR Calculation mL/min/1.73m2 (Non-) (test code = 2371275211) eGFR Calculation mL/min/1.73m2 () (test code = 3924253983) GILBERTO (test code = GILBERTO) Association of [...] tests). Lab Interpretation Abnormal (test code = 91526-8) [facility]2020-10-04 10:13:00 Test Item Value Reference Range Interpretation Comments MAGNESIUM (test code = 6724176927) 1.5 mg/dL 1.7-2.4 L Lab Interpretation (test code = Abnormal 70857-6) [facility]2020-10-04 10:13:00 Test Item Value Reference Range Interpretation Comments PHOSPHORUS (test code = 2147003972) 3.4 mg/dL 2.5-5 Lab Interpretation (test code = Normal 46996-7) [facility] CH[facility] OF ABSCESS [id number] 17:06:27 Successful removal of the left upper quadrant drainage catheter. Replacement of the right upper quadrant catheter into the most superiorsegment of the collection with a new 10 [place] pigtail catheter.PLAN: This tube should be flushed with 10 of saline twice a day. ?We willcontinue to monitor the output of the catheter while the patient isin-house. If the patient is discharged prior to catheter removal, follow-upwith VIR is recommended in 7-10 ?days. This can be arranged by [id number]. Preliminary Report Dictated by Resident: Johnny Tilley [...] from those actually performing theprocedure. Please see [facility] for sedation time. RADIATION DOSE: 33.0 mGy. TECHNIQUE: The risks, benefits and alternativeswere discussed and informed consentwas obtained. Prior to beginning the procedure, Poyen Protocol was usedto confirm the patient's identity [...] of the pigtailcatheters within the respective collections. [facility], Radiant Results Inft User - 05/26/2020 12:07 PM CDTEXAMINATION: 1. PERCUTANEOUS PERIHEPATIC DRAINAGE REPLACEMENT2. LEFT UPPER QUADRANT DRAINAGE REMOVAL.HISTORY: 50 years-old; Male; abscess ATTENDEES: Attending radiologist: Nixon Perez; Resident: Dr. Johnny Tilley;Contributing VIR Fellow: Dr. Vance Stafford.SEDATION: Moderate sedation was administered under the attendingphysician's direction and continuous monitoring by a trained nursespecialist who was independent from those actually performing theprocedure. Please see [facility] for sedation time.RADIATION DOSE: 33.0 mGy.TECHNIQUE: The risks, benefits and alternatives were discussed and informed consentwas obtained. Prior to beginning the procedure, Poyen Protocol was usedto confirm the patient's identity [...] the tip placed in the most superior segm ent. A 10French pigtail catheter was then advanced over the wire, formed in thecollection and then secured in place with a stitch. The catheter wasconnected to an accordion bag. A sterile dressing was applied. ESTIMATED BLOOD LOSS: Minimal.DISCHARGED TO: Recovery and then to inpatient unit.CONDITION: S table.FINDINGS: Fluoroscopic images of the RUQ and LUQ drainage catheters afteradministration of contrast material demonstrated placement of the pigtailcatheters within the respective collections.IMPRESSIONSuccessful removal of the left upper quadrant drainage catheter.Replacement of the right upper qu adrant catheter into the most superiorsegment of the collection with a new 10 [place] pigtail catheter.PLAN: This tube should be flushed with 10 of saline twice a day. We willcontinue to monitor the output of the catheter while the patient isin-house. If the patient is discharged prior to catheter removal, follow-upwith VIR is recommended in 7-10 days. This can be arranged by [id number].Preliminary Report Dictated by Resident: Johnny Benitez, as teaching physician, was present during the entire procedure and/orduring the botello components.Nixon Damon MD., have reviewed this study and agree with theabove report.[facility] ASP[facility]ATION ABSCESS BULLA OR CYST BY [id number] 17:06:16 Successful ultrasound-guided aspiration of intrahepatic small [...] consentwas obtained. Prior to beginning the procedure, Poyen Protocol was usedto confirm the patient's identity and planned procedure. Maximum sterilebarriers including cap, mask, hand hygiene, sterile gloves, sterile gown,large sterile drape and cutaneous antisepsis were used. The skin overlying the right mid abdomen was sterilely prepped, draped andinfiltrated with 1percent lidocaine. The targeted infrahepatic small collection was then accessed with [id number]-[id number] micropuncture needle using imaging guidance which includedultrasound. The fluid collection was carefully aspirated. A steriledressing was applied. A sample of the fluid was sent for culture ESTIMATED BLOOD LOSS: Minimal. DISCHARGED TO: Recovery and then to inpatient unit. CONDITION: Stable. FINDINGS: Ultrasound imaging of the infrahepatic area demonstrated a very smallanechoic fluid collection. 1 mL yellowviscous-appearing fluid wasaspirated. [facility], Radiant Results Inft User - 05/26/2020 12:07 PM CDTEXAMINATION: IMAGE GUIDED PERCUTANEOUS INFRAHEPATIC FLUID COLLECTIONASPIRATIONHISTORY: 50 years-old; Male;peritoneal abscess.ATTENDEES: Attending radiologist: Nixon Perez; Resident: Dr. Johnny Tilley;Contributing VIR Fellow: Dr. Vance Stafford.SEDATION: No moderate sedation was utilized for this procedure.TECHNIQUE: The risks, benefits and alternatives were discussed and informed consentwas obtained. Prior to beginning the procedure, Poyen Protocol was usedto confirm the patient's identity and planned procedure. Maximum sterilebarriers including cap, mask, hand hygiene, sterile gloves, sterile gown,large sterile drape and cutaneous antisepsis were used. The skin overlying the right mid abdomen was sterilely prepped, draped andinfiltrated with 1 percent lidocaine. The targeted infrahepatic small collection was then accessed with [id number] micropuncture needle using imaging guidance which includ [...] reviewed this study and agree with theabove report.[facility] (NA, K, CL, CO2, GLUCOSE, BUN, CREATININE, CA) 2020-05-26 10:13:00 Test Item Value Reference Range Interpretation Comments NA (test code = 135 mmol/L 135-145 5233698875) K (test code = 4.4 mmol/L 3.5-5 9617492729) CL (test code = 107 mmol/L 98-108 6792278723) CO2 TOTAL (test code = 23 mmol/L 23-31 2913865605) AGAP (test code = 2-16 8162120070) BUN (test code = 18 mg/dL 7-23 9026580058) GLUCOSE (test code = 101 mg/dL 70-110 3845702223) CREATININE (test code = 0.61 mg/dL 0.6-1.25 6453899531) CALCIUM (test code = 8.1 mg/dL 8.6-10.6 L 4236835940) eGFR Calculation mL/min/1.73m2 (Non-) (test code = 4035843471) eGFR Calculation mL/min/1.73m2 () (test code = 4639623652) GILBERTO (test code = GILBERTO) Association of [...] tests). Lab Interpretation Abnormal (test code = 05717-3) [facility]2020-10-03 10:13:00 Test Item Value Reference Range Interpretation Comments MAGNESIUM (test code = 0439400477) 1.7 mg/dL 1.7-2.4 Lab Interpretation (test code = Normal 16893-9) [facility]2020-10-03 10:13:00 Test Item Value Reference Range Interpretation Comments PHOSPHORUS (test code = 1922253054) 3.4 mg/dL 2.5-5 Lab Interpretation (test code = Normal 40120-3) [facility]XR [id number] 23:20:33 Positioning dictated draining the right upper [...] reviewed this study and agree with theabove report.[facility]OL[facility] (NA, K, CL, CO2, GLUCOSE, BUN, CREATININE, CA)2020-05-25 22:49:00 Test Item Value Reference Range Interpretation Comments NA (test code = 136 mmol/L 135-145 2279065602) K (test code = 4.5 mmol/L 3.5-5 3345091144) CL (test code = 105 mmol/L 98-108 2445797440) CO2 TOTAL (test code = 22 mmol/L 23-31 L 1560446082) AGAP (test code = 2-16 1984059848) BUN (test code = 24 mg/dL 7-23 H 8899773897) GLUCOSE (test code = 101 mg/dL 70-110 6460025521) CREATININE (test code = 0.74 mg/dL 0.6-1.25 2753544365) CALCIUM (test code = 8.6 mg/dL 8.6-10.6 3979230377) eGFR Calculation mL/min/1.73m2 (Non-) (test code = 0104841816) eGFR Calculation mL/min/1.73m2 () (test code = 4166375327) GILBERTO (test code = GILBERTO) Association of [...] tests). Lab Interpretation Abnormal (test code = 11595-2) [facility]2020-10-02 22:11:00 Test Item Value Reference Range Interpretation Comments MAGNESIUM (test code = 5721115742) 2.0 mg/dL 1.7-2.4 Lab Interpretation (test code = Normal 51956-9) [facility]2020-10-02 22:11:00 Test Item Value Reference Range Interpretation Comments PHOSPHORUS (test code = 6330281189) 3.1 mg/dL 2.5-5 Lab Interpretation (test code = Normal 21965-9) [facility]CBC WITH [id number] 21:51:00 Test Item Value Reference Range Interpretation [...] (test code = 53.1 fL 38.5-51.6 H 86974-9) RDW-CV (test code = 17.9 % 12.1-15.4 H 788-0) PLT (test code = See_Comment [Automated 777-3) message] The sy stem which generated this result transmitted reference range : 150 - 328 10*3/ ?L. The reference r meredith was not used to interpret this result as normal/abnormal . MPV (test code = 9.1 fL 9.8-13 L 31341-9) NRBC/100 WBC (test See_Comment [Automat ed code = 5122731004) message] The system which generated this result transmitted reference range : 0.0 - 10.0 /100 WBCs. The refer ence range was not u sed to interpret th is result as normal/abnormal . NRBC x10^3 (test code <0.01 See_Comment [Auto mated = 0740383930) message] The s ystem which generated this result transmitted reference range : 10*3/?L. The reference range was not used to interpret this result as normal/abnormal . GRAN MAT (NEUT) % 73.4 % (test code = 770-8) IMM GRAN % (test code 0.50 % = 6162729810) LYMPH % (test code = 17.9 % 736-9) MONO % (test code = 5.2 % 5905-5) EOS % (test code = 2.5 % 713-8) BASO % (test code = 0.5 % 706-2) GRAN MAT x10^3(ANC) 4.05 10*3/uL 1.99-6.95 (test code = 9742017551) IMM GRAN x10^3 (test 0.03 10*3/uL 0-0.06 code = 8263828476) LYMPH x10^3 (test code 0.99 10*3/uL 1.09-3.23 L = 731-0) MONO x10^3 (test code 0.29 10*3/uL 0.36-1.02 L = 742-7) EOS x10^3 (test code = 0.14 10*3/uL 0.06-0.53 711-2) BASO x10^3 (test code 0.03 10*3/uL 0.01-0.09 = 704-7) Lab Interpretation Abnormal (test code = 59484-4) [facility] (NA, K, CL, CO2, GLUCOSE, BUN, CREATININE, CA)2020-05-25 09:24:00 Test Item Value Reference Range Interpretation Comments NA (test code = 135 mmol/L 135-145 5459498431) K (test code = 5.3 mmol/L 3.5-5 H Slight 3427528425) hemolysis CL (test code = 104 mmol/L 98-108 6944907012) CO2 TOTAL (test code 24 mmol/L 23-31 = 5270772350) AGAP (test code = 2-16 4318052335) BUN (test code = 22 mg/dL 7-23 Slight 1499110379) hemolysis GLUCOSE (test code = 96 mg/dL 70-110 6774578165) CREATININE (test code 0.73 mg/dL 0.6-1.25 = 2165034093) CALCIUM (test code = 8.2 mg/dL 8.6-10.6 L 3429104320) eGFR Calculation mL/min/1.73m2 (Non-) (test code = 6836710562) eGFR Calculation mL/min/1.73m2 () (test code = 1876204370) GILBERTO (test code = GILBERTO) Association of [...] tests). Lab Interpretation Abnormal (test code = 64932-2) [facility]00 Test Item Value Reference Range Interpretation Comments MAGNESIUM (test code = 4743725810) 2.3 mg/dL 1.7-2.4 Lab Interpretation (test code = Normal 31000-5) [facility]2020-10-02 09:24:00 Test Item Value Reference Range Interpretation Comments PHOSPHORUS (test code = 3998609846) 3.4 mg/dL 2.5-5 Lab Interpretation (test code = Normal 77540-0) [facility] (NA, K, CL, CO2, GLUCOSE, BUN, CREATININE, CA)2020-05-24 21:00:00 Test Item Value Reference Range Interpretation Comments NA (test code = 135 mmol/L 135-145 3847728943) K (test code = 4.3 mmol/L 3.5-5 0843448828) CL (test code = 102 mmol/L 98-108 4900370641) CO2 TOTAL (test code = 25 mmol/L 23-31 7486162736) AGAP (test code = 2-16 8980960453) BUN (test code = 20 mg/dL 7-23 8897796942) GLUCOSE (test code = 102 mg/dL 70-110 2855350312) CREATININE (test code 0.97 mg/dL 0.6-1.25 = 6418862636) CALCIUM (test code = 9.0 mg/dL 8.6-10.6 4387664907) eGFR Calculation mL/min/1.73m2 (Non-) (test code = 7847250950) eGFR Calculation mL/min/1.73m2 () (test code = 6848150391) GILBERTO (test code = GILBERTO) Association of [...] or urine or abnormalities in imaging tests). [facility] 21:00:00 Test Item Value Reference Range Interpretation Comments MAGNESIUM (test code = 1561263998) 1.5 mg/dL 1.7-2.4 L Lab Interpretation (test code = Abnormal 58020-2) [facility]2020-10-01 20:58:00 Test Item Value Reference Range Interpretation Comments PHOSPHORUS (test code = 5845555038) 3.3 mg/dL 2.5-5 Lab Interpretation (test code = Normal 59140-5) [facility] with [id number] 11:31:00 Test Item Value Reference Range Interpretation [...] (test code = 51.9 fL 38.5-51.6 H 27847-5) RDW-CV (test code = 17.6 % 12.1-15.4 H 788-0) PLT (test code = See_Comment H [Automated 777-3) message] The sy stem which generated this result transmitted reference range : 150 - 328 10*3/ ?L. The reference r meredith was not used to interpret this result as normal/abnormal . MPV (test code = 9.0 fL 9.8-13 L 73714-8) NRBC/100 WBC (test See_Comment [Automat ed code = 9569547575) message] The system which generated this result transmitted reference range : 0.0 - 10.0 /100 WBCs. The refer ence range was not u sed to interpret th is result as normal/abnormal . NRBC x10^3 (test code <0.01 See_Comment [Auto mated = 3033965149) message] The s ystem which generated this result transmitted reference range : 10*3/?L. The reference range was not used to interpret this result as normal/abnormal . GRAN MAT (NEUT) % 66.0 % (test code = 770-8) IMM GRAN % (test code 0.20 % = 2397095088) LYMPH % (test code = 20.3 % 736-9) MONO % (test code = 10.4 % 5905-5) EOS % (test code = 2.6 % 713-8) BASO % (test code = 0.5 % 706-2) GRAN MAT x10^3(ANC) 4.33 10*3/uL 1.99-6.95 (test code = 7377262519) IMM GRAN x10^3 (test <0.03 0-0.06 code = 7775542659) LYMPH x10^3 (test code 1.33 10*3/uL 1.09-3.23 = 731-0) MONO x10^3 (test code 0.68 10*3/uL 0.36-1.02 = 742-7) EOS x10^3 (test code = 0.17 10*3/uL 0.06-0.53 711-2) BASO x10^3 (test code 0.03 10*3/uL 0.01-0.09 = 704-7) Lab Interpretation Abnormal (test code = 51869-3) [facility] W [id number] 17:39:05 Since 05/19/2020 slight increase in size [...] A 50 year old male?s/ptotal abdominal 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 leadingto end [...] perihepatic are unchanged with drains insitu as above.[facility] (NA, K, CL, CO2, Glucose, BUN, Creatinine, CA)2020-05-23 10:25:00 Test Item Value Reference Range Interpretation Comments NA (test code = 135 mmol/L 135-145 0275863564) K (test code = 3.7 mmol/L 3.5-5 8433703356) CL (test code = 105 mmol/L 98-108 7743832132) CO2 TOTAL (test code = 24 mmol/L 23-31 8051090377) AGAP (test code = 2-16 6623205045) BUN (test code = 19 mg/dL 7-23 2886240528) GLUCOSE (test code = 117 mg/dL 70-110 H 2951284361) CREATININE (test code = 0.74 mg/dL 0.6-1.25 5053745673) CALCIUM (test code = 7.3 mg/dL 8.6-10.6 L 8543869305) eGFR Calculation mL/min/1.73m2 (Non-) (test code = 9614654405) eGFR Calculation mL/min/1.73m2 () (test code = 0344799727) GILBERTO (test code = GILBERTO) Association of [...] tests). Lab Interpretation Abnormal (test code = 48057-3) [facility] COVID-19 [id number] 07:40:00 Test Item Value Reference Range Interpretation Comments SARS-CoV-2 Rapid ID NOW Not Detected Not Detected (test code = 07980-4) GILBERTO (test code = GILBERTO) ID NOW COVID-19 Assay is an isothermal nucleic acid amplification test intended for the qualitative detection of nucleic acid from SARS-CoV-2 viral RNA in nasopharyngeal (INSPECTOR ADVANCED COMPOSITE) specimens. It is used under Emergency Use [...] indicated. Lab Interpretation Normal (test code = 56872-9) [facility]inalysis2020-09-29 22:41:00 Test Item Value Reference Range Interpretation Comments APPEARANCE (test code = Hazy Clear A 8739314692) COLOR (test code = Yellow Yellow 9810688404) PH (test code = 4.8-8.0 4716451390) SP GRAVITY (test code = 1.003-1.030 6385126504) GLU U QUAL (test code = Normal Normal 3067041792) BLOOD (test code = Negative Negative 1830333289) KETONES (test code = Negative Negative 6293980699) PROTEIN (test code = 30 mg/dL Negative A 2887-8) UROBILIN (test code = Normal Normal 6975076039) BILIRUBIN (test code = Negative Negative 6234389534) NITRITE (test code = Negative Negative 9646394167) LEUK ROGER (test code = Negative Negative 3181902361) RBC/HPF (test code = See_Comment H [Autom ated message] 7442028712) The system [employer] generated this result transmitted ref erence range: 0 - 3 HP F. The reference range was not used to int erpret this result as normal/abnormal . WBC/HPF (test code = See_Comment H [Autom ated message] 6452148985) The system [employer] generated this result transmitted ref erence range: 0 - 5 HP F. The reference range was not used to int erpret this result as normal/abnormal . BACTERIA (test code = Negative Negative 8314324082) MUCOUS (test code = Moderate Negative LPF A 6816914408) SQ EPITH (test code = See_Comment [Auto mated message] 7000101878) The system [employer] generated this result transmitted ref erence range: <=2 HPF. The reference range was not used to int erpret this result as normal/abnormal . CA OXALATE (test code = See_Comment [employer] [Au tomated message] 1212098410) The system [employer] generated this result transmitted ref erence range: <=1 HPF. The reference range was not used to int erpret this result as normal/abnormal . HYAL CAST (test code = See_Comment [employer] [Aut omated message] 2886822709) The system [employer] generated this result transmitted ref erence range: <=2 LPF. The reference range was not used to int erpret this result as normal/abnormal . Lab Interpretation (test Abnormal code = 19159-9) [facility] Metabolic Panel (NA, K, CL, CO2, GLUCOSE, BUN, CREATININE, CA)2020-05-22 21:46:00 Test Item Value Reference Range Interpretation Comments NA (test code = 134 mmol/L 135-145 L 7332091129) K (test code = 5.0 mmol/L 3.5-5 8099336134) CL (test code = 103 mmol/L 98-108 1102154840) CO2 TOTAL (test code = 25 mmol/L 23-31 3045109142) AGAP (test code = 2-16 0895248222) BUN (test code = 24 mg/dL 7-23 H 2764929652) GLUCOSE (test code = 102 mg/dL 70-110 7456216146) CREATININE (test code = 0.87 mg/dL 0.6-1.25 6183650351) CALCIUM (test code = 9.2 mg/dL 8.6-10.6 0075290136) eGFR Calculation mL/min/1.73m2 (Non-) (test code = 0707637198) eGFR Calculation mL/min/1.73m2 () (test code = 1514322925) GILBERTO (test code = GILBERTO) Association of [...] tests). Lab Interpretation Abnormal (test code = 48854-6) [facility] (ALB, T.PRO, BILI T, BU/BC, ALT, AST, ALK PHOS)2020-05-22 21:46:00 Test Item Value Reference Range Interpretation Comments TOTAL BILI (test code = 2863242381) 0.4 mg/dL 0.1-1.1 BILI UNCON (test code = 2636432991) 0.2 mg/dL 0.1-1.1 BILI CONJ (test code = 7618140938) 0.0 mg/dL 0-0.3 T PROTEIN (test code = 8550248030) 6.5 g/dL 6.3-8.2 ALBUMIN (test code = 9739324526) 3.6 g/dL 3.5-5 ALK PHOS (test code = 2464735986) 96 U/L 34-122 ALTv (test code = 1742-6) 22 U/L 5-50 AST(SGOT) (test code = 9031891559) 28 U/L 13-40 Lab Interpretation (test code = Normal 75787-9) [facility] RegionalLipase [id number] 21:46:00 Test Item Value Reference Range Interpretation Comments LIPASE (test code = 1624827850) 95 U/L 0-220 Lab Interpretation (test code = Normal 86053-6) [facility] RegionalaPTT2020-09-29 21:46:00 Test Item Value Reference Range Interpretation Comments APTT Patient (test code = See_Comment [ Automated message] 3173-2) The system [employer] generated this result transmitted ref erence range: 26 - 36 Seconds. The re ference range was not u sed to interpret this result as normal/abnor mal. Lab Interpretation (test Normal code = 69754-7) [facility] RegionalProthrombin Time (PT) / [id number] 21:46:00 Test Item Value Reference Range Interpretation Comments PROTIME PATIENT (test See_Comment H [Auto mated message] code = 5964-2) The system wh ich generated this result transmitted ref erence range: 10.1 - 1 2.6 Seconds. The reference range was not used to int erpret this result as normal/abnormal . INR (test code = 6301-6) Nor mal INR <1.1; Warfarin Therap eutic range 2.0 to 3. 0 or 2.5 to 3.5, dep ending upon the indica tions. Lab Interpretation (test Abnormal code = 20087-5) [facility] with Xbphffycafzu4732-73-09 21:41:00 Test Item Value Reference Range Interpretation [...] (test code = 53.0 fL 38.5-51.6 H 38983-3) RDW-CV (test code = 17.6 % 12.1-15.4 H 788-0) PLT (test code = See_Comment H [Automated 777-3) message] The sy stem which generated this result transmitted reference range : 150 - 328 10*3/ ?L. The reference r meredith was not used to interpret this result as normal/abnormal . MPV (test code = 9.1 fL 9.8-13 L 92928-8) NRBC/100 WBC (test See_Comment [Automat ed code = 9191184133) message] The system which generated this result transmitted reference range : 0.0 - 10.0 /100 WBCs. The refer ence range was not u sed to interpret th is result as normal/abnormal . NRBC x10^3 (test code <0.01 See_Comment [Auto mated = 3571437980) message] The s ystem which generated this result transmitted reference range : 10*3/?L. The reference range was not used to interpret this result as normal/abnormal . GRAN MAT (NEUT) % 77.4 % (test code = 770-8) IMM GRAN % (test code 0.50 % = 7428132946) LYMPH % (test code = 15.8 % 736-9) MONO % (test code = 4.9 % 5905-5) EOS % (test code = 0.8 % 713-8) BASO % (test code = 0.6 % 706-2) GRAN MAT x10^3(ANC) 5.04 10*3/uL 1.99-6.95 (test code = 3865169321) IMM GRAN x10^3 (test 0.03 10*3/uL 0-0.06 code = 7221897666) LYMPH x10^3 (test code 1.03 10*3/uL 1.09-3.23 L = 731-0) MONO x10^3 (test code 0.32 10*3/uL 0.36-1.02 L = 742-7) EOS x10^3 (test code = 0.05 10*3/uL 0.06-0.53 L 711-2) BASO x10^3 (test code 0.04 10*3/uL 0.01-0.09 = 704-7) Lab Interpretation Abnormal (test code = 41275-9) [facility] 1 Mydb8642-23-02 21:19:32CHEST ONE VIEW HISTORY: ?Weakness TECHNIQUE: ?AP [...] the left costophrenic angle suggests a leftpleural effusion.[facility]OVID[facility] (ID NOW RAPID TESTING) 2020-05-20 10:09:00 Test Item Value Reference Range Interpretation Comments SARS-CoV-2 Rapid ID NOW Not Detected Not Detected (test code = 71964-1) GILBERTO (test code = GILBERTO) ID NOW COVID-19 Assay is an isothermal nucleic acid amplification test intended for the qualitative detection of nucleic acid from SARS-CoV-2 viral RNA in nasopharyngeal (INSPECTOR ADVANCED COMPOSITE) specimens. It is used under Emergency Use [...] indicated. Lab Interpretation Normal (test code = 55325-5) [facility]URINALYSIS2020-09-27 10:07:00 Test Item Value Reference Range Interpretation Comments APPEARANCE (test code = Clear Clear 1497066374) COLOR (test code = Yellow Yellow 4994299785) PH (test code = 4.8-8.0 5188128913) SP GRAVITY (test code = 1.003-1.030 H 2532602842) GLU U QUAL (test code = Normal Normal 6250968419) BLOOD (test code = Negative Negative 3756658714) KETONES (test code = Negative Negative 2192804906) PROTEIN (test code = Negative Negative 2887-8) UROBILIN (test code = Normal Normal 7348551547) BILIRUBIN (test code = Negative Negative 1132014122) NITRITE (test code = Negative Negative 3553137901) LEUK ROGER (test code = Negative Negative 3206267230) RBC/HPF (test code = See_Comment [Autom ated message] 1977455475) The system [employer] generated this result transmitted ref erence range: 0 - 3 HP F. The reference range was not used to int erpret this result as normal/abnormal . WBC/HPF (test code = See_Comment [Autom ated message] 7421751283) The system [employer] generated this result transmitted ref erence range: 0 - 5 HP F. The reference range was not used to int erpret this result as normal/abnormal . BACTERIA (test code = Negative Negative 4127181147) MUCOUS (test code = Slight Negative LPF A 2554424768) SQ EPITH (test code = See_Comment [Auto mated message] 3738050883) The system [employer] generated this result transmitted ref erence range: <=2 HPF. The reference range was not used to int erpret this result as normal/abnormal . HYAL CAST (test code = See_Comment H [Aut omated message] 4225567169) The system [employer] generated this result transmitted ref erence range: <=2 LPF. The reference range was not used to int erpret this result as normal/abnormal . Lab Interpretation (test Abnormal code = 40355-7) [facility] PELVIS W [id number] 04:28:40Impression: 1. Multiple rim-enhancing fluid and gas [...] effusions, possiblyloculated on the left. RL: 2824AFC: 22842 End of Report Exam: CT Abdomen and [...] pleural effusions, possiblyloculated on the left.RL: 2824AFC: 67463Rjn of Report [facility] RegionalPITO [id number] 03:44:00 Test Item Value Reference Range Interpretation Comments TROPONIN I (test 0.001 ng/mL See_Comment [Automated code = 2008013234) message] The system which generated this result [...] ? Lab Interpretation Normal (test code = 59863-1) [facility]. METABOLIC PANEL (68491)2020-05-20 03:33:00 Test Item Value Reference Range Interpretation Comments NA (test code = 138 mmol/L 135-145 1000239226) K (test code = 5.3 mmol/L 3.5-5 H 2431983034) CL (test code = 100 mmol/L 98-108 8320441509) CO2 TOTAL (test code = 28 mmol/L 23-31 6108660673) AGAP (test code = 2-16 3454709408) BUN (test code = 27 mg/dL 7-23 H 4786574576) GLUCOSE (test code = 90 mg/dL 70-110 4082472312) CREATININE (test code = 1.25 mg/dL 0.6-1.25 8096519583) TOTAL BILI (test code = 0.2 mg/dL 0.1-1.4 3582967007) CALCIUM (test code = 9.9 mg/dL 8.6-10.6 9575943822) T PROTEIN (test code = 6.8 g/dL 6.3-8.2 6865391005) ALBUMIN (test code = 3.7 g/dL 3.5-5 9525838388) ALK PHOS (test code = 122 U/L 34-122 9693580714) ALTv (test code = 26 U/L 5-50 1742-6) AST(SGOT) (test code = 24 U/L 13-40 7121574142) eGFR Calculation mL/min/1.73m2 (Non-) (test code = 0396710545) eGFR Calculation mL/min/1.73m2 () (test code = 2291538219) GILBERTO (test code = GILBERTO) Association of [...] tests). Lab Interpretation Abnormal (test code = 25814-1) [facility]2020-09-27 03:33:00 Test Item Value Reference Range Interpretation Comments LIPASE (test code = 4147909820) 223 U/L 0-220 H Lab Interpretation (test code = Abnormal 12267-5) [facility]MAGNESIUM2020-09-27 03:33:00 Test Item Value Reference Range Interpretation Comments MAGNESIUM (test code = 8093664984) 1.7 mg/dL 1.7-2.4 Lab Interpretation (test code = Normal 92723-6) [facility] WITH [id number] 03:17:00 Test Item Value Reference Range Interpretation Comments WBC (test code = See_Comment [Automated 6490-2) message] The sy stem which generated this result transmitted reference range : 4.20 - 10.70 10*3/?L. The reference range was not used to interpret this result as normal/abnormal . RBC (test code = See_Comment L [Automated 879-8) message] The sy stem which generated this [...] RDW-SD (test code = 49.9 fL 38.5-51.6 68244-9) RDW-CV (test code = 17.2 % 12.1-15.4 H 788-0) PLT (test code = See_Comment H [Automated 777-3) message] The sy stem which generated this result transmitted reference range : 150 - 328 10*3/ ?L. The reference r meredith was not used to interpret this result as normal/abnormal . MPV (test code = 9.3 fL 9.8-13 L 38073-2) NRBC/100 WBC (test See_Comment [Automat ed code = 2218380469) message] The system which generated this result transmitted reference range : 0.0 - 10.0 /100 WBCs. The refer ence range was not u sed to interpret th is result as normal/abnormal . NRBC x10^3 (test code <0.01 See_Comment [Auto mated = 5916172829) message] The s ystem which generated this result transmitted reference range : 10*3/?L. The reference range was not used to interpret this result as normal/abnormal . GRAN MAT (NEUT) % 78.5 % (test code = 770-8) IMM GRAN % (test code 0.50 % = 8857010561) LYMPH % (test code = 11.6 % 736-9) MONO % (test code = 8.4 % 5905-5) EOS % (test code = 0.6 % 713-8) BASO % (test code = 0.4 % 706-2) GRAN MAT x10^3(ANC) 6.16 10*3/uL 1.99-6.95 (test code = 4970226033) IMM GRAN x10^3 (test 0.04 10*3/uL 0-0.06 code = 8760962950) LYMPH x10^3 (test code 0.91 10*3/uL 1.09-3.23 L = 731-0) MONO x10^3 (test code 0.66 10*3/uL 0.36-1.02 = 742-7) EOS x10^3 (test code = 0.05 10*3/uL 0.06-0.53 L 711-2) BASO x10^3 (test code 0.03 10*3/uL 0.01-0.09 = 704-7) Lab Interpretation Abnormal (test code = 21036-0) [facility]BODY FLUID CULTURE(AEROBIC/ANAEROBIC) 2020-05-10 15:19:00 Test Item Value Reference Range Interpretation Comments BODY FLUID CULT 2+ Clostridioides (test code = (Clostridium) difficile 611-4) Gram stain (test Few PMNs or Mononuclear code = 664-3) cells observed [facility] (NA, K, CL, CO2, GLUCOSE, BUN, CREATININE, CA)2020-05-10 10:27:00 Test Item Value Reference Range Interpretation Comments NA (test code = 132 mmol/L 135-145 L 7674360285) K (test code = 4.0 mmol/L 3.5-5 0069358731) CL (test code = 97 mmol/L 98-108 L 1490396897) CO2 TOTAL (test code = 28 mmol/L 23-31 4821541352) AGAP (test code = 2-16 8000227700) BUN (test code = 12 mg/dL 7-23 8380380624) GLUCOSE (test code = 128 mg/dL 70-110 H 0723477115) CREATININE (test code = 0.63 mg/dL 0.6-1.25 1912353862) CALCIUM (test code = 8.7 mg/dL 8.6-10.6 4687472672) eGFR Calculation mL/min/1.73m2 (Non-) (test code = 8535277911) eGFR Calculation mL/min/1.73m2 () (test code = 4360373294) GILBERTO (test code = GILBERTO) Association of [...] tests). Lab Interpretation Abnormal (test code = 63350-1) [facility] RegionalMagnesium [id number] 10:27:00 Test Item Value Reference Range Interpretation Comments MAGNESIUM (test code = 0704599747) 1.7 mg/dL 1.7-2.4 Lab Interpretation (test code = Normal 29013-3) [facility] RegionalPhosphorus [id number] 10:27:00 Test Item Value Reference Range Interpretation Comments PHOSPHORUS (test code = 4020016034) 3.4 mg/dL 2.5-5 Lab Interpretation (test code = Normal 95405-5) [facility] with Jzgssxpfmcee3792-66-15 10:03:00 Test Item Value Reference Range Interpretation [...] RDW-SD (test code = 47.3 fL 38.5-51.6 53531-4) RDW-CV (test code = 15.7 % 12.1-15.4 H 788-0) PLT (test code = See_Comment H [Automated 777-3) message] The sy stem which generated this result transmitted reference range : 150 - 328 10*3/ ?L. The reference r meredith was not used to interpret this result as normal/abnormal . MPV (test code = 8.9 fL 9.8-13 L 52593-5) NRBC/100 WBC (test See_Comment [Automat ed code = 1967285271) message] The system which generated this result transmitted reference range : 0.0 - 10.0 /100 WBCs. The refer ence range was not u sed to interpret th is result as normal/abnormal . NRBC x10^3 (test code <0.01 See_Comment [Auto mated = 9766308481) message] The s ystem which generated this result transmitted reference range : 10*3/?L. The reference range was not used to interpret this result as normal/abnormal . GRAN MAT (NEUT) % 80.0 % (test code = 770-8) IMM GRAN % (test code 0.50 % = 2641334065) LYMPH % (test code = 11.8 % 736-9) MONO % (test code = 6.6 % 5905-5) EOS % (test code = 0.8 % 713-8) BASO % (test code = 0.3 % 706-2) GRAN MAT x10^3(ANC) 6.98 10*3/uL 1.99-6.95 H (test code = 0438261363) IMM GRAN x10^3 (test 0.04 10*3/uL 0-0.06 code = 2128169732) LYMPH x10^3 (test code 1.03 10*3/uL 1.09-3.23 L = 731-0) MONO x10^3 (test code 0.58 10*3/uL 0.36-1.02 = 742-7) EOS x10^3 (test code = 0.07 10*3/uL 0.06-0.53 711-2) BASO x10^3 (test code 0.03 10*3/uL 0.01-0.09 = 704-7) Lab Interpretation Abnormal (test code = 29003-3) [facility] Metabolic Panel (NA, K, CL, CO2, GLUCOSE, BUN, CREATININE, CA)2020-05-09 11:07:00 Test Item Value Reference Range Interpretation Comments NA (test code = 133 mmol/L 135-145 L 5640065068) K (test code = 4.4 mmol/L 3.5-5 9972992946) CL (test code = 100 mmol/L 98-108 9455902929) CO2 TOTAL (test code = 25 mmol/L 23-31 2360306579) AGAP (test code = 2-16 7658221979) BUN (test code = 14 mg/dL 7-23 7417365447) GLUCOSE (test code = 93 mg/dL 70-110 8391442507) CREATININE (test code = 0.66 mg/dL 0.6-1.25 4291735653) CALCIUM (test code = 8.3 mg/dL 8.6-10.6 L 8784691602) eGFR Calculation mL/min/1.73m2 (Non-) (test code = 1420547056) eGFR Calculation mL/min/1.73m2 () (test code = 9106693053) GILBERTO (test code = GILBERTO) Association of [...] tests). Lab Interpretation Abnormal (test code = 82677-0) [facility] RegionalMagn[facility] [id number] 11:07:00 Test Item Value Reference Range Interpretation Comments MAGNESIUM (test code = 6096084729) 1.8 mg/dL 1.7-2.4 Lab Interpretation (test code = Normal 36955-0) [facility] RegionalPhosphorus Tykco6577-34-72 11:07:00 Test Item Value Reference Range Interpretation Comments PHOSPHORUS (test code = 0060481259) 3.2 mg/dL 2.5-5 Lab Interpretation (test code = Normal 56333-6) [facility] with Mruftewrbygf3834-63-78 10:42:00 Test Item Value Reference Range Interpretation [...] RDW-SD (test code = 45.9 fL 38.5-51.6 67974-1) RDW-CV (test code = 15.4 % 12.1-15.4 788-0) PLT (test code = See_Comment H [Automated 777-3) message] The sy stem which generated this result transmitted reference range : 150 - 328 10*3/ ?L. The reference r meredith was not used to interpret this result as normal/abnormal . MPV (test code = 8.9 fL 9.8-13 L 75933-1) NRBC/100 WBC (test See_Comment [Automat ed code = 8723845411) message] The system which generated this result transmitted reference range : 0.0 - 10.0 /100 WBCs. The refer ence range was not u sed to interpret th is result as normal/abnormal . NRBC x10^3 (test code <0.01 See_Comment [Auto mated = 9124636322) message] The s ystem which generated this result transmitted reference range : 10*3/?L. The reference range was not used to interpret this result as normal/abnormal . GRAN MAT (NEUT) % 77.7 % (test code = 770-8) IMM GRAN % (test code 0.50 % = 5142464091) LYMPH % (test code = 11.8 % 736-9) MONO % (test code = 8.4 % 5905-5) EOS % (test code = 1.4 % 713-8) BASO % (test code = 0.2 % 706-2) GRAN MAT x10^3(ANC) 6.48 10*3/uL 1.99-6.95 (test code = 9110720773) IMM GRAN x10^3 (test 0.04 10*3/uL 0-0.06 code = 6530050051) LYMPH x10^3 (test code 0.98 10*3/uL 1.09-3.23 L = 731-0) MONO x10^3 (test code 0.70 10*3/uL 0.36-1.02 = 742-7) EOS x10^3 (test code = 0.12 10*3/uL 0.06-0.53 711-2) BASO x10^3 (test code <0.03 0.01-0.09 = 704-7) Lab Interpretation Abnormal (test code = 86879-1) [facility] Metabolic Panel (NA, K, CL, CO2, GLUCOSE, BUN, CREATININE, CA)2020-05-08 12:18:00 Test Item Value Reference Range Interpretation Comments NA (test code = 136 mmol/L 135-145 1794399572) K (test code = 4.1 mmol/L 3.5-5 9642089095) CL (test code = 102 mmol/L 98-108 1810782322) CO2 TOTAL (test code = 26 mmol/L 23-31 9820210228) AGAP (test code = 2-16 3563470180) BUN (test code = 18 mg/dL 7-23 6899941021) GLUCOSE (test code = 99 mg/dL 70-110 6674242198) CREATININE (test code = 0.63 mg/dL 0.6-1.25 2185953839) CALCIUM (test code = 8.4 mg/dL 8.6-10.6 L 6288906339) eGFR Calculation mL/min/1.73m2 (Non-) (test code = 9092037504) eGFR Calculation mL/min/1.73m2 () (test code = 5160631703) GILBERTO (test code = GILBERTO) Association of [...] tests). Lab Interpretation Abnormal (test code = 09269-6) [facility] Fnpzc5859-28-14 12:18:00 Test Item Value Reference Range Interpretation Comments MAGNESIUM (test code = 1562744627) 1.8 mg/dL 1.7-2.4 Lab Interpretation (test code = Normal 33943-5) [facility] RegionalPh[facility] Mncfi7447-93-24 12:18:00 Test Item Value Reference Range Interpretation Comments PHOSPHORUS (test code = 1853349168) 3.2 mg/dL 2.5-5 Lab Interpretation (test code = Normal 10869-9) [facility] with Otztczvmbtyi9162-87-94 11:50:00 Test Item Value Reference Range Interpretation [...] RDW-SD (test code = 46.9 fL 38.5-51.6 15474-3) RDW-CV (test code = 15.2 % 12.1-15.4 788-0) PLT (test code = See_Comment H [Automated 777-3) message] The sy stem which generated this result transmitted reference range : 150 - 328 10*3/ ?L. The reference r meredith was not used to interpret this result as normal/abnormal . MPV (test code = 9.0 fL 9.8-13 L 98287-3) NRBC/100 WBC (test See_Comment [Automat ed code = 9320644165) message] The system which generated this result transmitted reference range : 0.0 - 10.0 /100 WBCs. The refer ence range was not u sed to interpret th is result as normal/abnormal . NRBC x10^3 (test code <0.01 See_Comment [Auto mated = 5262471317) message] The s ystem which generated this result transmitted reference range : 10*3/?L. The reference range was not used to interpret this result as normal/abnormal . GRAN MAT (NEUT) % 76.3 % (test code = 770-8) IMM GRAN % (test code 0.70 % = 1510234476) LYMPH % (test code = 13.3 % 736-9) MONO % (test code = 8.4 % 5905-5) EOS % (test code = 1.1 % 713-8) BASO % (test code = 0.2 % 706-2) GRAN MAT x10^3(ANC) 6.93 10*3/uL 1.99-6.95 (test code = 7019942213) IMM GRAN x10^3 (test 0.06 10*3/uL 0-0.06 code = 2782412219) LYMPH x10^3 (test code 1.21 10*3/uL 1.09-3.23 = 731-0) MONO x10^3 (test code 0.76 10*3/uL 0.36-1.02 = 742-7) EOS x10^3 (test code = 0.10 10*3/uL 0.06-0.53 711-2) BASO x10^3 (test code <0.03 0.01-0.09 = 704-7) Lab Interpretation Abnormal (test code = 06281-9) [facility] CATHETER PERITONEAL OR IUPHNHVOQHRSDUE7084-69-11 13:09:04 Technically successful drainage catheter placement in [...] of the tract was performed. A 14 [place] locking pigtail michael inagecatheter was placed in the collection and samples were sent for laboratoryanalysis. The left upper quadrant collection was identified under ultrasound and CTguidance. A 17-gauge coaxial needle wasadvanced into the collection. AnAmplatz wire was advanced into the collection over the needle and serialdilatation of the tract was performed. A 12 [place] locking pigtail drainagecatheter was placed within the collection and samples were sent forlaboratory analysis. The right lower quadrant collectionwas identified under ultrasound and CTguidance. A 17-gauge coaxial needle was advanced into the colle ction.Serial dilatation was performed over the Amplatz wire. A 14 [place] lockingpigtail drainage catheter was placed within the collection. Proper positioning was confirmed with postprocedural CT imaging of theabdomen and pelvis. The catheters were sutured to the skin. ESTIMATED BLOOD LOSS: <3cc. CONDITION: Stable. FINDINGS: Initial CT images demonstrate multiple abscesses in the left upper, rightupper, and right lower quadrants. [facility], Radiant Results Inft User - 05/07/2020 8:10 [...] from those actually performing theprocedure. Please see [facility] for total sedation time. TECHNIQUE: The risks, benefits and alternatives were discussed and informedconsent was obtained. Prior to beginning the procedure, Poy[place] Protocolwas performed to confirm the patient's identity [...] of the tract was performed. A 14 [place] lockingpigtail drainagecatheter was placed in the collection and samples were sent for laboratoryanalysis.The left upper quadrant collection was identified under ultrasound and CTguidance. A 17-gauge coaxial needle was advanced into the collection. AnAmplatz wire was advanced into the collection over the needle and serialdilatation of the tract was performed. A 12 [place] locking pigtail drainagecatheter wasplaced within the collection and samples were sent forlaboratory analysis.The right lower quadrant collection was identified under ultrasound and CTguidance. A 17-gauge coaxial needle was advanced intothe collection.Serial dilatation was performed over the Amplatz wire. A 14 [place] lockingpigtail drainage catheter was placed within [...] during the entire procedure and/orduring the botello components.[facility] Metabolic Panel (NA, K, CL, CO2, GLUCOSE, BUN, CREATININE, CA) 2020-05-07 11:49:00 Test Item Value Reference Range Interpretation Comments NA (test code = 132 mmol/L 135-145 L 1027786215) K (test code = 4.0 mmol/L 3.5-5 8766726393) CL (test code = 101 mmol/L 98-108 3776096820) CO2 TOTAL (test code = 23 mmol/L 23-31 9684678216) AGAP (test code = 2-16 4376254279) BUN (test code = 21 mg/dL 7-23 2608387507) GLUCOSE (test code = 98 mg/dL 70-110 6230246043) CREATININE (test code = 0.65 mg/dL 0.6-1.25 5320221269) CALCIUM (test code = 8.4 mg/dL 8.6-10.6 L 8075884172) eGFR Calculation mL/min/1.73m2 (Non-) (test code = 8055842483) eGFR Calculation mL/min/1.73m2 () (test code = 0077316618) GILBERTO (test code = GILBERTO) Association of [...] tests). Lab Interpretation Abnormal (test code = 53723-7) [facility] Zpgpa2310-40-72 11:49:00 Test Item Value Reference Range Interpretation Comments MAGNESIUM (test code = 6197082250) 1.5 mg/dL 1.7-2.4 L Lab Interpretation (test code = Abnormal 32093-8) [facility] RegionalPhosph[facility] Bgswm9422-06-73 11:49:00 Test Item Value Reference Range Interpretation Comments PHOSPHORUS (test code = 7497594512) 2.7 mg/dL 2.5-5 Lab Interpretation (test code = Normal 42580-3) [facility] with Giltxycbrlwi2103-51-66 11:31:00 Test Item Value Reference Range Interpretation [...] RDW-SD (test code = 47.2 fL 38.5-51.6 56500-8) RDW-CV (test code = 15.3 % 12.1-15.4 788-0) PLT (test code = See_Comment H [Automated 777-3) message] The sy stem which generated this result transmitted reference range : 150 - 328 10*3/ ?L. The reference r meredith was not used to interpret this result as normal/abnormal . MPV (test code = 9.4 fL 9.8-13 L 10836-6) NRBC/100 WBC (test See_Comment [Automat ed code = 5926878573) message] The system which generated this result transmitted reference range : 0.0 - 10.0 /100 WBCs. The refer ence range was not u sed to interpret th is result as normal/abnormal . NRBC x10^3 (test code <0.01 See_Comment [Auto mated = 6754637008) message] The s ystem which generated this result transmitted reference range : 10*3/?L. The reference range was not used to interpret this result as normal/abnormal . GRAN MAT (NEUT) % 81.1 % (test code = 770-8) IMM GRAN % (test code 0.80 % = 9996874894) LYMPH % (test code = 9.5 % 736-9) MONO % (test code = 7.8 % 5905-5) EOS % (test code = 0.6 % 713-8) BASO % (test code = 0.2 % 706-2) GRAN MAT x10^3(ANC) 8.26 10*3/uL 1.99-6.95 H (test code = 0027730828) IMM GRAN x10^3 (test 0.08 10*3/uL 0-0.06 H code = 9547805210) LYMPH x10^3 (test code 0.97 10*3/uL 1.09-3.23 L = 731-0) MONO x10^3 (test code 0.79 10*3/uL 0.36-1.02 = 742-7) EOS x10^3 (test code = 0.06 10*3/uL 0.06-0.53 711-2) BASO x10^3 (test code <0.03 0.01-0.09 = 704-7) Lab Interpretation Abnormal (test code = 41481-8) [facility] Metabolic Panel (NA, K, CL, CO2, GLUCOSE, BUN, CREATININE, CA)2020-05-06 15:02:00 Test Item Value Reference Range Interpretation Comments NA (test code = 134 mmol/L 135-145 L 1823407826) K (test code = 4.3 mmol/L 3.5-5 4700210606) CL (test code = 105 mmol/L 98-108 5121925645) CO2 TOTAL (test code = 23 mmol/L 23-31 0878416393) AGAP (test code = 2-16 8103470959) BUN (test code = 18 mg/dL 7-23 6554252435) GLUCOSE (test code = 96 mg/dL 70-110 8524853597) CREATININE (test code = 0.67 mg/dL 0.6-1.25 6037119957) CALCIUM (test code = 8.5 mg/dL 8.6-10.6 L 3176975009) eGFR Calculation mL/min/1.73m2 (Non-) (test code = 2749455928) eGFR Calculation mL/min/1.73m2 () (test code = 5282680008) GILBERTO (test code = GILBERTO) Association of [...] tests). Lab Interpretation Abnormal (test code = 00489-6) [facility] Exzvb9358-78-45 15:02:00 Test Item Value Reference Range Interpretation Comments MAGNESIUM (test code = 2370314974) 1.8 mg/dL 1.7-2.4 Lab Interpretation (test code = Normal 07756-3) [facility] RegionalPhosphorus Ksruo6326-21-67 15:02:00 Test Item Value Reference Range Interpretation Comments PHOSPHORUS (test code = 1691930870) 3.2 mg/dL 2.5-5 Lab Interpretation (test code = Normal 69026-1) [facility] with Gpzfmxyqxsep8886-12-94 10:41:00 Test Item Value Reference Range Interpretation [...] RDW-SD (test code = 47.0 fL 38.5-51.6 81381-2) RDW-CV (test code = 15.2 % 12.1-15.4 788-0) PLT (test code = See_Comment H [Automated 777-3) message] The sy stem which generated this result transmitted reference range : 150 - 328 10*3/ ?L. The reference r meredith was not used to interpret this result as normal/abnormal . MPV (test code = 9.1 fL 9.8-13 L 85223-3) NRBC/100 WBC (test See_Comment [Automat ed code = 1659047604) message] The system which generated this result transmitted reference range : 0.0 - 10.0 /100 WBCs. The refer ence range was not u sed to interpret th is result as normal/abnormal . NRBC x10^3 (test code <0.01 See_Comment [Auto mated = 8091257964) message] The s ystem which generated this result transmitted reference range : 10*3/?L. The reference range was not used to interpret this result as normal/abnormal . GRAN MAT (NEUT) % 77.3 % (test code = 770-8) IMM GRAN % (test code 0.60 % = 6515227803) LYMPH % (test code = 11.6 % 736-9) MONO % (test code = 9.5 % 5905-5) EOS % (test code = 0.8 % 713-8) BASO % (test code = 0.2 % 706-2) GRAN MAT x10^3(ANC) 6.69 10*3/uL 1.99-6.95 (test code = 9331236843) IMM GRAN x10^3 (test 0.05 10*3/uL 0-0.06 code = 1884587312) LYMPH x10^3 (test code 1.00 10*3/uL 1.09-3.23 L = 731-0) MONO x10^3 (test code 0.82 10*3/uL 0.36-1.02 = 742-7) EOS x10^3 (test code = 0.07 10*3/uL 0.06-0.53 711-2) BASO x10^3 (test code <0.03 0.01-0.09 = 704-7) Lab Interpretation Abnormal (test code = 20989-4) [facility] RegionalPrepare Packed RBC (in units), 1 Units 2020-05-05 15:59:33 Test Item Value Reference Range Interpretation Comments Cross Match Result Compatible (test code = 4409) ISBT Blood Type Code (test code = 229357) Unit Blood Type (test O Pos code = 4410) Unit Number (test [id number] code = 4411) Blood Expiration Date & Time (test code = 649962) Status Information Issued (test code = 4412) Product Red Blood Cells Identification (test code = 4413) Product Code (test [id number] Performed at [facility] code = 4414) Laboratory Services - [facility] [address] [place] [address]Ipjx Free: [phone] A No. [id number] [facility] - ONCE Jwydzey7965-89-26 11:34:29 Test Item Value Reference Range Interpretation Comments ABO & RH (test code O POSITIVE Performe d at [facility] = 20) Laboratory Serv [facility] Blood Bank3 [address] [facility] s [address]Olvb Free: [phone] A No. [id number] IAT (test code = Negative Performed a t [facility] 1185) Laboratory Serv [facility] Blood Bank3 [address] [facility] s [address]Htrb Free: [phone] A No. [id number] [facility] RegionalPREALBUMIN2020-09-12 10:19:00 Test Item Value Reference Range Interpretation Comments PALB (test code = 07924-2) 8.0 mg/dL 18-45 L Lab Interpretation (test code = Abnormal 78296-8) [facility] (NA, K, CL, CO2, GLUCOSE, BUN, CREATININE, CA)2020-05-05 10:12:00 Test Item Value Reference Range Interpretation Comments NA (test code = 135 mmol/L 135-145 9374717992) K (test code = 4.1 mmol/L 3.5-5 5913197253) CL (test code = 106 mmol/L 98-108 6152612126) CO2 TOTAL (test code = 22 mmol/L 23-31 L 4398484992) AGAP (test code = 2-16 1060947634) BUN (test code = 25 mg/dL 7-23 H 8688944104) GLUCOSE (test code = 91 mg/dL 70-110 0573302676) CREATININE (test code = 0.68 mg/dL 0.6-1.25 8210223169) CALCIUM (test code = 7.4 mg/dL 8.6-10.6 L 6797190569) eGFR Calculation mL/min/1.73m2 (Non-) (test code = 3088225759) eGFR Calculation mL/min/1.73m2 () (test code = 3257178839) GILBERTO (test code = GILBERTO) Association of [...] tests). Lab Interpretation Abnormal (test code = 66375-3) [facility] RegionalMagn[facility] Naiml7670-44-51 10:12:00 Test Item Value Reference Range Interpretation Comments MAGNESIUM (test code = 8488648865) 1.8 mg/dL 1.7-2.4 Lab Interpretation (test code = Normal 48892-8) [facility] RegionalPhosphorus Hpqrk3393-77-97 10:12:00 Test Item Value Reference Range Interpretation Comments PHOSPHORUS (test code = 6818193196) 3.1 mg/dL 2.5-5 Lab Interpretation (test code = Normal 07297-3) [facility] with Ruxxnhrjqwna6622-56-97 09:18:00 Test Item Value Reference Range Interpretation Comments WBC (test code = See_Comment [Automated 7390-2) message] The sy stem which generated this [...] RDW-SD (test code = 48.4 fL 38.5-51.6 56090-8) RDW-CV (test code = 15.7 % 12.1-15.4 H 788-0) PLT (test code = See_Comment H [Automated 777-3) message] The sy stem which generated this result transmitted reference range : 150 - 328 10*3/ ?L. The reference r meredith was not used to interpret this result as normal/abnormal . MPV (test code = 9.1 fL 9.8-13 L 12584-4) NRBC/100 WBC (test See_Comment [Automat ed code = 3915538187) message] The system which generated this result transmitted reference range : 0.0 - 10.0 /100 WBCs. The refer ence range was not u sed to interpret th is result as normal/abnormal . NRBC x10^3 (test code <0.01 See_Comment [Auto mated = 5653173913) message] The s ystem which generated this result transmitted reference range : 10*3/?L. The reference range was not used to interpret this result as normal/abnormal . GRAN MAT (NEUT) % 79.0 % (test code = 770-8) IMM GRAN % (test code 0.70 % = 3201238654) LYMPH % (test code = 10.6 % 736-9) MONO % (test code = 8.9 % 5905-5) EOS % (test code = 0.5 % 713-8) BASO % (test code = 0.3 % 706-2) GRAN MAT x10^3(ANC) 7.81 10*3/uL 1.99-6.95 H (test code = 7803674364) IMM GRAN x10^3 (test 0.07 10*3/uL 0-0.06 H code = 7103859231) LYMPH x10^3 (test code 1.05 10*3/uL 1.09-3.23 L = 731-0) MONO x10^3 (test code 0.88 10*3/uL 0.36-1.02 = 742-7) EOS x10^3 (test code = 0.05 10*3/uL 0.06-0.53 L 711-2) BASO x10^3 (test code 0.03 10*3/uL 0.01-0.09 = 704-7) Lab Interpretation Abnormal (test code = 66858-5) [facility]2020-09-12 06:03:00 Test Item Value Reference Range Interpretation Comments APPEARANCE (test code = Hazy Clear A 8832740368) COLOR (test code = Yellow Yellow 0687949392) PH (test code = 4.8-8.0 0006735104) SP GRAVITY (test code = 1.003-1.030 H 6703544087) GLU U QUAL (test code = Normal Normal 5052277862) BLOOD (test code = Negative Negative 5273908085) KETONES (test code = Negative Negative 7196129231) PROTEIN (test code = Negative Negative 2887-8) UROBILIN (test code = Normal Normal 9316207956) BILIRUBIN (test code = Negative Negative 0433326184) NITRITE (test code = Negative Negative 6178817917) LEUK ROGER (test code = Negative Negative 2674432988) RBC/HPF (test code = See_Comment H [Autom ated message] 4330777389) The system [employer] generated this result transmitted ref erence range: 0 - 3 HP F. The reference range was not used to int erpret this result as normal/abnormal . WBC/HPF (test code = See_Comment [Autom ated message] 9287975141) The system [employer] generated this result transmitted ref erence range: 0 - 5 HP F. The reference range was not used to int erpret this result as normal/abnormal . BACTERIA (test code = Few Negative A 3584682008) MUCOUS (test code = Slight Negative LPF A 7075356533) CA OXALATE (test code = See_Comment H [Au tomated message] 0728837960) The system [employer] generated this result transmitted ref erence range: <=1 HPF. The reference range was not used to int erpret this result as normal/abnormal . Lab Interpretation (test Abnormal code = 57485-7) [facility] RegionalCT ABDOMEN PELVIS W [id number] 04:56:59 1. ?Interval removal of left subdiaphragmatic, [...] reviewed this study and agree with the abovereport.[facility] RegionalCOVID-19 (ID NOW RAPID TESTING)2020-05-05 03:40:00 Test Item Value Reference Range Interpretation Comments SARS-CoV-2 Rapid ID NOW Not Detected Not Detected (test code = 37201-1) GILBERTO (test code = GILBERTO) ID NOW COVID-19 Assay is an isothermal nucleic acid amplification test intended for the qualitative detection of nucleic acid from SARS-CoV-2 viral RNA in nasopharyngeal (INSPECTOR ADVANCED COMPOSITE) specimens. It is used under Emergency Use [...] indicated. Lab Interpretation Normal (test code = 06175-7) [facility]. METABOLIC PANEL (02496)2020-05-05 03:02:00 Test Item Value Reference Range Interpretation Comments NA (test code = 134 mmol/L 135-145 L 0534576004) K (test code = 4.7 mmol/L 3.5-5 6468003427) CL (test code = 99 mmol/L 98-108 2918836982) CO2 TOTAL (test code = 24 mmol/L 23-31 6796492261) AGAP (test code = 2-16 6426771089) BUN (test code = 37 mg/dL 7-23 H 9090602726) GLUCOSE (test code = 105 mg/dL 70-110 5420988894) CREATININE (test code = 0.94 mg/dL 0.6-1.25 6649871169) TOTAL BILI (test code = 0.5 mg/dL 0.1-1.7 1158877523) CALCIUM (test code = 8.8 mg/dL 8.6-10.6 4296457282) T PROTEIN (test code = 6.2 g/dL 6.3-8.2 L 9653779669) ALBUMIN (test code = 3.0 g/dL 3.5-5 L 2322228408) ALK PHOS (test code = 150 U/L 34-122 H 6377942808) ALTv (test code = 28 U/L 5-50 1742-6) AST(SGOT) (test code = 23 U/L 13-40 2108193181) eGFR Calculation mL/min/1.73m2 (Non-) (test code = 3297230126) eGFR Calculation mL/min/1.73m2 () (test code = 1832099177) GILBERTO (test code = GILBERTO) Association of [...] tests). Lab Interpretation Abnormal (test code = 35451-6) [facility] RegionalLIP[facility]2020-09-12 03:02:00 Test Item Value Reference Range Interpretation Comments LIPASE (test code = 3754365571) 323 U/L 0-220 H Lab Interpretation (test code = Abnormal 50943-0) [facility] RegionalCB WITH [id number] 02:43:00 Test Item Value Reference Range Interpretation Comments WBC (test code = See_Comment H [Automated 7090-2) message] The system which generated this result [...] RDW-SD (test code = 45.7 fL 38.5-51.6 96957-3) RDW-CV (test code = 15.4 % 12.1-15.4 788-0) PLT (test code = See_Comment H [Automated 777-3) message] The system which generated this result transmit dain reference range : 150 - 328 10*3/ ?L. The reference range was not u sed to interpret th is result as normal/abnormal . MPV (test code = 8.9 fL 9.8-13 L 91792-2) NRBC/100 WBC (test See_Comment [Automat ed code = 4343993606) message] The system which generated this result transmit dain reference range : 0.0 - 10.0 /100 WBCs. The reference range was not used to interpret this result as normal/abnormal . NRBC x10^3 (test code <0.01 See_Comment [Auto mated = 6372442102) message] The system which generated this result transmit dain reference range : 10*3/?L. The reference range was not used to interpret this result as normal/abnormal . GRAN MAT (NEUT) % 82.6 % (test code = 770-8) IMM GRAN % (test code 0.60 % = 4689635540) LYMPH % (test code = 8.1 % 736-9) MONO % (test code = 8.1 % 5905-5) EOS % (test code = 0.4 % 713-8) BASO % (test code = 0.2 % 706-2) GRAN MAT x10^3(ANC) 11.18 10*3/uL 1.99-6.95 H (test code = 1165482258) IMM GRAN x10^3 (test 0.08 10*3/uL 0-0.06 H code = 0780071207) LYMPH x10^3 (test code 1.10 10*3/uL 1.09-3.23 = 731-0) MONO x10^3 (test code 1.09 10*3/uL 0.36-1.02 H = 742-7) EOS x10^3 (test code = 0.05 10*3/uL 0.06-0.53 L 711-2) BASO x10^3 (test code 0.03 10*3/uL 0.01-0.09 = 704-7) Lab Interpretation Abnormal (test code = 51463-8) [facility] METABOLIC PANEL (NA, K, CL, CO2, GLUCOSE, BUN, CREATININE, CA)2020-05-01 12:25:00 Test Item Value Reference Range Interpretation Comments NA (test code = 131 mmol/L 135-145 L 6570852100) K (test code = 4.7 mmol/L 3.5-5 8462277873) CL (test code = 97 mmol/L 98-108 L 8392415630) CO2 TOTAL (test code = 25 mmol/L 23-31 9839116649) AGAP (test code = 2-16 7415794039) BUN (test code = 30 mg/dL 7-23 H 6765467397) GLUCOSE (test code = 111 mg/dL 70-110 H 7922803750) CREATININE (test code = 0.69 mg/dL 0.6-1.25 4812219788) CALCIUM (test code = 9.3 mg/dL 8.6-10.6 3246969451) eGFR Calculation mL/min/1.73m2 (Non-) (test code = 2118894617) eGFR Calculation mL/min/1.73m2 () (test code = 1663653344) GILBERTO (test code = GILBERTO) Association of [...] tests). Lab Interpretation Abnormal (test code = 95653-1) [facility]UM2020-09-08 12:07:00 Test Item Value Reference Range Interpretation Comments MAGNESIUM (test code = 0409431648) 2.3 mg/dL 1.7-2.4 Lab Interpretation (test code = Normal 42793-1) [facility] RegionalPHOSPHORUS2020-09-08 12:07:00 Test Item Value Reference Range Interpretation Comments PHOSPHORUS (test code = 2009331333) 4.6 mg/dL 2.5-5 Lab Interpretation (test code = Normal 20584-8) [facility] WITH [id number] 11:44:00 Test Item Value Reference Range Interpretation Comments WBC (test code = See_Comment H [Automated 90-2) message] The system which generated this result transmit dain reference range : 4.20 - 10.70 10*3/?L. The reference range was not used to interpret this result as normal/abnormal . RBC (test code = See_Comment L [Automated 859-8) message] The system which generated this result [...] RDW-SD (test code = 44.9 fL 38.5-51.6 09015-7) RDW-CV (test code = 14.8 % 12.1-15.4 788-0) PLT (test code = See_Comment H [Automated 777-3) message] The system which generated this result transmit dain reference range : 150 - 328 10*3/ ?L. The reference range was not u sed to interpret th is result as normal/abnormal . MPV (test code = 9.1 fL 9.8-13 L 08817-2) NRBC/100 WBC (test See_Comment [Automat ed code = 8007637729) message] The system which generated this result transmit dain reference range : 0.0 - 10.0 /100 WBCs. The reference range was not used to interpret this result as normal/abnormal . NRBC x10^3 (test code <0.01 See_Comment [Auto mated = 4211889140) message] The system which generated this result transmit dain reference range : 10*3/?L. The reference range was not used to interpret this result as normal/abnormal . GRAN MAT (NEUT) % 81.4 % (test code = 770-8) IMM GRAN % (test code 0.70 % = 7181849478) LYMPH % (test code = 8.7 % 736-9) MONO % (test code = 8.5 % 5905-5) EOS % (test code = 0.3 % 713-8) BASO % (test code = 0.4 % 706-2) GRAN MAT x10^3(ANC) 12.01 10*3/uL 1.99-6.95 H (test code = 6801524641) IMM GRAN x10^3 (test 0.10 10*3/uL 0-0.06 H code = 5828295809) LYMPH x10^3 (test code 1.28 10*3/uL 1.09-3.23 = 731-0) MONO x10^3 (test code 1.25 10*3/uL 0.36-1.02 H = 742-7) EOS x10^3 (test code = 0.04 10*3/uL 0.06-0.53 L 711-2) BASO x10^3 (test code 0.06 10*3/uL 0.01-0.09 = 704-7) Lab Interpretation Abnormal (test code = 35959-7) [facility] METABOLIC PANEL (NA, K, CL, CO2, GLUCOSE, BUN, CREATININE, CA)2020-04-29 12:08:00 Test Item Value Reference Range Interpretation Comments NA (test code = 130 mmol/L 135-145 L 7235827956) K (test code = 5.0 mmol/L 3.5-5 5372934718) CL (test code = 94 mmol/L 98-108 L 1956371639) CO2 TOTAL (test code = 27 mmol/L 23-31 3313205886) AGAP (test code = 2-16 6526610657) BUN (test code = 35 mg/dL 7-23 H 8903448957) GLUCOSE (test code = 116 mg/dL 70-110 H 9994260084) CREATININE (test code = 0.76 mg/dL 0.6-1.25 9335406778) CALCIUM (test code = 9.0 mg/dL 8.6-10.6 1391092907) eGFR Calculation mL/min/1.73m2 (Non-) (test code = 9936716681) eGFR Calculation mL/min/1.73m2 () (test code = 4171544508) GILBERTO (test code = GILBERTO) Association of [...] tests). Lab Interpretation Abnormal (test code = 00699-7) [facility]2020-09-06 12:01:00 Test Item Value Reference Range Interpretation Comments MAGNESIUM (test code = 4469608865) 2.3 mg/dL 1.7-2.4 Lab Interpretation (test code = Normal 74254-7) [facility]PH[facility]US2020-09-06 12:01:00 Test Item Value Reference Range Interpretation Comments PHOSPHORUS (test code = 0050022525) 4.5 mg/dL 2.5-5 Lab Interpretation (test code = Normal 75794-2) [facility] WITH [id number] 11:52:00 Test Item Value Reference Range Interpretation Comments WBC (test code = See_Comment H [Automated 8690-2) message] The system which generated this result transmit dain reference range : 4.20 - 10.70 10*3/?L. The reference range was not used to interpret this result as normal/abnormal . RBC (test code = See_Comment L [Automated 029-8) message] The system which generated this result [...] RDW-SD (test code = 44.4 fL 38.5-51.6 07600-7) RDW-CV (test code = 14.7 % 12.1-15.4 788-0) PLT (test code = See_Comment H [Automated 777-3) message] The system which generated this result transmit dain reference range : 150 - 328 10*3/ ?L. The reference range was not u sed to interpret th is result as normal/abnormal . MPV (test code = 9.1 fL 9.8-13 L 18191-2) NRBC/100 WBC (test See_Comment [Automat ed code = 5829290980) message] The system which generated this result transmit dain reference range : 0.0 - 10.0 /100 WBCs. The reference range was not used to interpret this result as normal/abnormal . NRBC x10^3 (test code <0.01 See_Comment [Auto mated = 9788651394) message] The system which generated this result transmit dain reference range : 10*3/?L. The reference range was not used to interpret this result as normal/abnormal . GRAN MAT (NEUT) % 82.5 % (test code = 770-8) IMM GRAN % (test code 1.30 % = 6865075755) LYMPH % (test code = 7.1 % 736-9) MONO % (test code = 8.5 % 5905-5) EOS % (test code = 0.3 % 713-8) BASO % (test code = 0.3 % 706-2) GRAN MAT x10^3(ANC) 14.27 10*3/uL 1.99-6.95 H (test code = 0461141347) IMM GRAN x10^3 (test 0.23 10*3/uL 0-0.06 H code = 6186320811) LYMPH x10^3 (test code 1.23 10*3/uL 1.09-3.23 = 731-0) MONO x10^3 (test code 1.47 10*3/uL 0.36-1.02 H = 742-7) EOS x10^3 (test code = 0.05 10*3/uL 0.06-0.53 L 711-2) BASO x10^3 (test code 0.06 10*3/uL 0.01-0.09 = 704-7) Lab Interpretation Abnormal (test code = 66354-0) [facility] METABOLIC PANEL (NA, K, CL, CO2, GLUCOSE, BUN, CREATININE, CA)2020-04-28 10:15:00 Test Item Value Reference Range Interpretation Comments NA (test code = 130 mmol/L 135-145 L 3365703493) K (test code = 5.3 mmol/L 3.5-5 H 0585523951) CL (test code = 91 mmol/L 98-108 L 6497263022) CO2 TOTAL (test code = 29 mmol/L 23-31 0741484825) AGAP (test code = 2-16 5477696721) BUN (test code = 32 mg/dL 7-23 H 4391530632) GLUCOSE (test code = 101 mg/dL 70-110 0748071891) CREATININE (test code = 0.74 mg/dL 0.6-1.25 8778500586) CALCIUM (test code = 9.5 mg/dL 8.6-10.6 1791386239) eGFR Calculation mL/min/1.73m2 (Non-) (test code = 4341781080) eGFR Calculation mL/min/1.73m2 () (test code = 0978596378) GILBERTO (test code = GILBERTO) Association of [...] tests). Lab Interpretation Abnormal (test code = 26196-6) [facility]:12[facility]00 Test Item Value Reference Range Interpretation Comments MAGNESIUM (test code = 8726628978) 2.3 mg/dL 1.7-2.4 Lab Interpretation (test code = Normal 53222-8) [facility] WITH [id number] 09:55:00 Test Item Value Reference Range Interpretation Comments WBC (test code = See_Comment H [Automated 2890-2) message] The system which generated this result transmit dain reference range : 4.20 - 10.70 10*3/?L. The reference range was not used to interpret this result as normal/abnormal . RBC (test code = See_Comment L [Automated 589-8) message] The system which generated this result [...] RDW-SD (test code = 45.1 fL 38.5-51.6 76222-0) RDW-CV (test code = 14.7 % 12.1-15.4 788-0) PLT (test code = See_Comment H [Automated 777-3) message] The system which generated this result transmit dain reference range : 150 - 328 10*3/ ?L. The reference range was not u sed to interpret th is result as normal/abnormal . MPV (test code = 9.5 fL 9.8-13 L 48955-7) NRBC/100 WBC (test See_Comment [Automat ed code = 3804926129) message] The system which generated this result transmit dain reference range : 0.0 - 10.0 /100 WBCs. The reference range was not used to interpret this result as normal/abnormal . NRBC x10^3 (test code <0.01 See_Comment [Auto mated = 5511108735) message] The system which generated this result transmit dain reference range : 10*3/?L. The reference range was not used to interpret this result as normal/abnormal . GRAN MAT (NEUT) % 81.1 % (test code = 770-8) IMM GRAN % (test code 1.40 % = 1432204706) LYMPH % (test code = 8.6 % 736-9) MONO % (test code = 7.9 % 5905-5) EOS % (test code = 0.5 % 713-8) BASO % (test code = 0.5 % 706-2) GRAN MAT x10^3(ANC) 14.68 10*3/uL 1.99-6.95 H (test code = 7664583042) IMM GRAN x10^3 (test 0.25 10*3/uL 0-0.06 H code = 7044713040) LYMPH x10^3 (test code 1.55 10*3/uL 1.09-3.23 = 731-0) MONO x10^3 (test code 1.43 10*3/uL 0.36-1.02 H = 742-7) EOS x10^3 (test code = 0.09 10*3/uL 0.06-0.53 711-2) BASO x10^3 (test code 0.09 10*3/uL 0.01-0.09 = 704-7) Lab Interpretation Abnormal (test code = 75205-1) [facility] METABOLIC PANEL (NA, K, CL, CO2, GLUCOSE, BUN, CREATININE, CA)2020-04-27 10:20:00 Test Item Value Reference Range Interpretation Comments NA (test code = 130 mmol/L 135-145 L 7791343002) K (test code = 4.5 mmol/L 3.5-5 9113259632) CL (test code = 93 mmol/L 98-108 L 7370045663) CO2 TOTAL (test code = 28 mmol/L 23-31 6884433512) AGAP (test code = 2-16 1970623558) BUN (test code = 31 mg/dL 7-23 H 0669263872) GLUCOSE (test code = 102 mg/dL 70-110 1968193551) CREATININE (test code = 0.81 mg/dL 0.6-1.25 3367408256) CALCIUM (test code = 9.0 mg/dL 8.6-10.6 9538885162) eGFR Calculation mL/min/1.73m2 (Non-) (test code = 4903167235) eGFR Calculation mL/min/1.73m2 () (test code = 2468545027) GILBERTO (test code = GILBERTO) Association of [...] tests). Lab Interpretation Abnormal (test code = 77943-6) [facility] 10:20:00 Test Item Value Reference Range Interpretation Comments MAGNESIUM (test code = 5199551794) 2.2 mg/dL 1.7-2.4 Lab Interpretation (test code = Normal 37722-0) [facility] WITH [id number] 09:49:00 Test Item Value Reference Range Interpretation Comments WBC (test code = See_Comment H [Automated 8990-2) message] The system which generated this result transmit dain reference range : 4.20 - 10.70 10*3/?L. The reference range was not used to interpret this result as normal/abnormal . RBC (test code = See_Comment L [Automated 419-8) message] The system which generated this result [...] RDW-SD (test code = 45.2 fL 38.5-51.6 51179-2) RDW-CV (test code = 14.5 % 12.1-15.4 788-0) PLT (test code = See_Comment H [Automated 777-3) message] The system which generated this result transmit dain reference range : 150 - 328 10*3/ ?L. The reference range was not u sed to interpret th is result as normal/abnormal . MPV (test code = 9.0 fL 9.8-13 L 59425-3) NRBC/100 WBC (test See_Comment [Automat ed code = 0963814489) message] The system which generated this result transmit dain reference range : 0.0 - 10.0 /100 WBCs. The reference range was not used to interpret this result as normal/abnormal . NRBC x10^3 (test code <0.01 See_Comment [Auto mated = 1196780498) message] The system which generated this result transmit dain reference range : 10*3/?L. The reference range was not used to interpret this result as normal/abnormal . GRAN MAT (NEUT) % 80.9 % (test code = 770-8) IMM GRAN % (test code 1.30 % = 9946506809) LYMPH % (test code = 8.9 % 736-9) MONO % (test code = 7.7 % 5905-5) EOS % (test code = 0.6 % 713-8) BASO % (test code = 0.6 % 706-2) GRAN MAT x10^3(ANC) 13.18 10*3/uL 1.99-6.95 H (test code = 4363120479) IMM GRAN x10^3 (test 0.21 10*3/uL 0-0.06 H code = 5881016397) LYMPH x10^3 (test code 1.45 10*3/uL 1.09-3.23 = 731-0) MONO x10^3 (test code 1.26 10*3/uL 0.36-1.02 H = 742-7) EOS x10^3 (test code = 0.09 10*3/uL 0.06-0.53 711-2) BASO x10^3 (test code 0.10 10*3/uL 0.01-0.09 H = 704-7) Lab Interpretation Abnormal (test code = 81073-9) [facility] METABOLIC PANEL (NA, K, CL, CO2, GLUCOSE, BUN, CREATININE, CA)2020-04-26 11:29:00 Test Item Value Reference Range Interpretation Comments NA (test code = 133 mmol/L 135-145 L 0044867446) K (test code = 4.7 mmol/L 3.5-5 6288542401) CL (test code = 98 mmol/L 98-108 8317220215) CO2 TOTAL (test code = 25 mmol/L 23-31 6797606201) AGAP (test code = 2-16 9898995859) BUN (test code = 26 mg/dL 7-23 H 7438760328) GLUCOSE (test code = 97 mg/dL 70-110 0873128571) CREATININE (test code = 0.73 mg/dL 0.6-1.25 7961954010) CALCIUM (test code = 8.7 mg/dL 8.6-10.6 4457258866) eGFR Calculation mL/min/1.73m2 (Non-) (test code = 2430436120) eGFR Calculation mL/min/1.73m2 () (test code = 0717302744) GILBERTO (test code = GILBERTO) Association of [...] tests). Lab Interpretation Abnormal (test code = 31862-9) [facility] 11:29:00 Test Item Value Reference Range Interpretation Comments MAGNESIUM (test code = 9395287626) 2.1 mg/dL 1.7-2.4 Lab Interpretation (test code = Normal 47632-2) [facility] WITH [id number] 10:27:00 Test Item Value Reference Range Interpretation [...] RDW-SD (test code = 45.4 fL 38.5-51.6 73405-7) RDW-CV (test code = 14.5 % 12.1-15.4 788-0) PLT (test code = See_Comment H [Automated 777-3) message] The system which generated this result transmit dain reference range : 150 - 328 10*3/ ?L. The reference range was not u sed to interpret th is result as normal/abnormal . MPV (test code = 9.3 fL 9.8-13 L 62846-8) NRBC/100 WBC (test See_Comment [Automat ed code = 9866058041) message] The system which generated this result transmit dain reference range : 0.0 - 10.0 /100 WBCs. The reference range was not used to interpret this result as normal/abnormal . NRBC x10^3 (test code <0.01 See_Comment [Auto mated = 6849858627) message] The system which generated this result transmit dain reference range : 10*3/?L. The reference range was not used to interpret this result as normal/abnormal . GRAN MAT (NEUT) % 79.6 % (test code = 770-8) IMM GRAN % (test code 1.30 % = 2470847343) LYMPH % (test code = 8.6 % 736-9) MONO % (test code = 9.3 % 5905-5) EOS % (test code = 0.8 % 713-8) BASO % (test code = 0.4 % 706-2) GRAN MAT x10^3(ANC) 12.46 10*3/uL 1.99-6.95 H (test code = 3462807946) IMM GRAN x10^3 (test 0.21 10*3/uL 0-0.06 H code = 4901507380) LYMPH x10^3 (test code 1.34 10*3/uL 1.09-3.23 = 731-0) MONO x10^3 (test code 1.45 10*3/uL 0.36-1.02 H = 742-7) EOS x10^3 (test code = 0.13 10*3/uL 0.06-0.53 711-2) BASO x10^3 (test code 0.07 10*3/uL 0.01-0.09 = 704-7) Lab Interpretation Abnormal (test code = 62137-2) [facility] METABOLIC PANEL (NA, K, CL, CO2, GLUCOSE, BUN, CREATININE, CA)2020-04-25 10:03:00 Test Item Value Reference Range Interpretation Comments NA (test code = 133 mmol/L 135-145 L 0938765870) K (test code = 4.6 mmol/L 3.5-5 8087633362) CL (test code = 96 mmol/L 98-108 L 1626692140) CO2 TOTAL (test code = 27 mmol/L 23-31 6753397673) AGAP (test code = 2-16 1785021228) BUN (test code = 21 mg/dL 7-23 7019595755) GLUCOSE (test code = 108 mg/dL 70-110 4344968437) CREATININE (test code = 0.76 mg/dL 0.6-1.25 4988637049) CALCIUM (test code = 9.5 mg/dL 8.6-10.6 6731520511) eGFR Calculation mL/min/1.73m2 (Non-) (test code = 5270179358) eGFR Calculation mL/min/1.73m2 () (test code = 5262059530) GILBERTO (test code = GILBERTO) Association of [...] tests). Lab Interpretation Abnormal (test code = 60196-3) [facility] 10:03:00 Test Item Value Reference Range Interpretation Comments MAGNESIUM (test code = 4633668310) 2.4 mg/dL 1.7-2.4 Lab Interpretation (test code = Normal 33113-5) [facility] WITH [id number] 09:48:00 Test Item Value Reference Range Interpretation [...] RDW-SD (test code = 45.7 fL 38.5-51.6 68527-9) RDW-CV (test code = 14.3 % 12.1-15.4 788-0) PLT (test code = See_Comment HH [Automated 777-3) message] The system which generated this result transmit dain reference range : 150 - 328 10*3/ ?L. The reference range was not u sed to interpret th is result as normal/abnormal . MPV (test code = 9.1 fL 9.8-13 L 86561-5) NRBC/100 WBC (test See_Comment [Automat ed code = 3358283388) message] The system which generated this result transmit dain reference range : 0.0 - 10.0 /100 WBCs. The reference range was not used to interpret this result as normal/abnormal . NRBC x10^3 (test code <0.01 See_Comment [Auto mated = 1474656308) message] The system which generated this result transmit dain reference range : 10*3/?L. The reference range was not used to interpret this result as normal/abnormal . GRAN MAT (NEUT) % 78.9 % (test code = 770-8) IMM GRAN % (test code 1.70 % = 8287066418) LYMPH % (test code = 8.7 % 736-9) MONO % (test code = 9.1 % 5905-5) EOS % (test code = 0.9 % 713-8) BASO % (test code = 0.7 % 706-2) GRAN MAT x10^3(ANC) 11.96 10*3/uL 1.99-6.95 H (test code = 9660833742) IMM GRAN x10^3 (test 0.26 10*3/uL 0-0.06 H code = 8531544334) LYMPH x10^3 (test code 1.32 10*3/uL 1.09-3.23 = 731-0) MONO x10^3 (test code 1.38 10*3/uL 0.36-1.02 H = 742-7) EOS x10^3 (test code = 0.13 10*3/uL 0.06-0.53 711-2) BASO x10^3 (test code 0.11 10*3/uL 0.01-0.09 H = 704-7) Lab Interpretation Abnormal (test code = 95304-1) [facility] WITH [id number] 10:40:00 Test Item Value Reference Range Interpretation [...] RDW-SD (test code = 46.3 fL 38.5-51.6 30501-5) RDW-CV (test code = 14.5 % 12.1-15.4 788-0) PLT (test code = See_Comment HH [Automated 777-3) message] The sy stem which generated this result transmitted reference range : 150 - 328 10*3/ ?L. The reference r meredith was not used to interpret this result as normal/abnormal . MPV (test code = 9.1 fL 9.8-13 L 09637-3) NRBC/100 WBC (test See_Comment [Automat ed code = 0392053590) message] The system which generated this result transmitted reference range : 0.0 - 10.0 /100 WBCs. The refer ence range was not u sed to interpret th is result as normal/abnormal . NRBC x10^3 (test code <0.01 See_Comment [Auto mated = 8040168901) message] The s ystem which generated this result transmitted reference range : 10*3/?L. The reference range was not used to interpret this result as normal/abnormal . GRAN MAT (NEUT) % 74.7 % (test code = 770-8) IMM GRAN % (test code 2.00 % = 9167151049) LYMPH % (test code = 10.0 % 736-9) MONO % (test code = 11.4 % 5905-5) EOS % (test code = 1.3 % 713-8) BASO % (test code = 0.6 % 706-2) GRAN MAT x10^3(ANC) 9.44 10*3/uL 1.99-6.95 H (test code = 4500336866) IMM GRAN x10^3 (test 0.25 10*3/uL 0-0.06 H code = 3701501734) LYMPH x10^3 (test code 1.26 10*3/uL 1.09-3.23 = 731-0) MONO x10^3 (test code 1.44 10*3/uL 0.36-1.02 H = 742-7) EOS x10^3 (test code = 0.16 10*3/uL 0.06-0.53 711-2) BASO x10^3 (test code 0.07 10*3/uL 0.01-0.09 = 704-7) Lab Interpretation Abnormal (test code = 57580-4) [facility] METABOLIC PANEL (NA, K, CL, CO2, GLUCOSE, BUN, CREATININE, CA)2020-04-24 10:39:00 Test Item Value Reference Range Interpretation Comments NA (test code = 133 mmol/L 135-145 L 6777999150) K (test code = 4.3 mmol/L 3.5-5 7940000212) CL (test code = 99 mmol/L 98-108 1716369004) CO2 TOTAL (test code = 29 mmol/L 23-31 8579006281) AGAP (test code = 2-16 9941390692) BUN (test code = 20 mg/dL 7-23 6474970133) GLUCOSE (test code = 109 mg/dL 70-110 2256945620) CREATININE (test code = 0.78 mg/dL 0.6-1.25 3925949232) CALCIUM (test code = 8.4 mg/dL 8.6-10.6 L 2214992014) eGFR Calculation mL/min/1.73m2 (Non-) (test code = 1849986407) eGFR Calculation mL/min/1.73m2 () (test code = 6721100733) GILBERTO (test code = GILBERTO) Association of [...] tests). Lab Interpretation Abnormal (test code = 51731-1) [facility] 10:39:00 Test Item Value Reference Range Interpretation Comments MAGNESIUM (test code = 3573822949) 2.2 mg/dL 1.7-2.4 Lab Interpretation (test code = Normal 81689-8) [facility] PEL[facility] W [id number] 09:30:06 1. ?Overall, no significant change in [...] reviewed this study and agree with theabove report.[facility] TH[facility] W [id number] 03:46:28 Acute pulmonary emboli in the anterior [...] andmorphology. No significant pericardial thickening or effusion. Dghljdji-pl-mmhlc cardiomediastinal shift. Scattered subcentimeter mediastinal and bilateral [...] andmorphology. No significant pericardial thickening or effusion. Ieqwbvur-ge-rrybe cardiomediastinal shift.Scattered subcentimeter mediastinal and bilateral hilar [...] reviewed this study and agree with theabove report.[facility] (ID NOW RAPID TESTING)2020-04-23 17:45:00 Test Item Value Reference Range Interpretation Comments SARS-CoV-2 Rapid ID NOW Not Detected Not Detected (test code = 67930-5) GILBERTO (test code = GILBERTO) ID NOW COVID-19 Assay is an isothermal nucleic acid amplification test intended for the qualitative detection of nucleic acid from SARS-CoV-2 viral RNA in nasopharyngeal (INSPECTOR ADVANCED COMPOSITE) specimens. It is used under Emergency Use [...] indicated. Lab Interpretation Normal (test code = 45698-6) [facility]2020-[facility]31 17:40:00 Test Item Value Reference Range Interpretation Comments PALB (test code = 95759-2) 11.8 mg/dL 18-45 L Lab Interpretation (test code = Abnormal 01200-5) [facility] CHEST 1 [id number] 15:00:55 Stable appearance of left pleural effusion [...] reviewed this study and agree with theabove report.[facility] [id number] 14:14:00 Test Item Value Reference Range Interpretation Comments K (test code = 2716655175) 4.8 mmol/L 3.5-5 Lab Interpretation (test code = Normal 91823-6) [facility] WITH [id number] 11:30:00 Test Item Value Reference Range Interpretation [...] RDW-SD (test code = 45.0 fL 38.5-51.6 52325-4) RDW-CV (test code = 14.5 % 12.1-15.4 788-0) PLT (test code = See_Comment HH [Automated 777-3) message] The sy stem which generated this result transmitted reference range : 150 - 328 10*3/ ?L. The reference r meredith was not used to interpret this result as normal/abnormal . MPV (test code = 9.4 fL 9.8-13 L 45583-6) IPF % (test code = 1.6 % 1.2-10.7 Platelet count 9585452090) measured by fluorescence method. NRBC/100 WBC (test See_Comment [Automat ed code = 8385381372) message] The system which generated this result transmitted reference range : 0.0 - 10.0 /100 WBCs. The refer ence range was not u sed to interpret th is result as normal/abnormal . NRBC x10^3 (test code <0.01 See_Comment [Auto mated = 8842398303) message] The s ystem which generated this result transmitted reference range : 10*3/?L. The reference range was not used to interpret this result as normal/abnormal . GRAN MAT (NEUT) % 73.4 % (test code = 770-8) IMM GRAN % (test code 1.80 % = 7164333043) LYMPH % (test code = 12.6 % 736-9) MONO % (test code = 10.8 % 5905-5) EOS % (test code = 1.0 % 713-8) BASO % (test code = 0.4 % 706-2) GRAN MAT x10^3(ANC) 9.57 10*3/uL 1.99-6.95 H (test code = 3763523481) IMM GRAN x10^3 (test 0.24 10*3/uL 0-0.06 H code = 0881932956) LYMPH x10^3 (test code 1.64 10*3/uL 1.09-3.23 = 731-0) MONO x10^3 (test code 1.41 10*3/uL 0.36-1.02 H = 742-7) EOS x10^3 (test code = 0.13 10*3/uL 0.06-0.53 711-2) BASO x10^3 (test code 0.05 10*3/uL 0.01-0.09 = 704-7) Lab Interpretation Abnormal (test code = 57632-8) [facility] METABOLIC PANEL (NA, K, CL, CO2, GLUCOSE, BUN, CREATININE, CA)2020-04-23 10:52:00 Test Item Value Reference Range Interpretation Comments NA (test code = 132 mmol/L 135-145 L 6890880288) K (test code = 5.7 mmol/L 3.5-5 H 4667310082) CL (test code = 97 mmol/L 98-108 L 0984852967) CO2 TOTAL (test code = 26 mmol/L 23-31 1225650211) AGAP (test code = 2-16 4038791099) BUN (test code = 34 mg/dL 7-23 H 9966560736) GLUCOSE (test code = 101 mg/dL 70-110 0427175067) CREATININE (test code = 0.85 mg/dL 0.6-1.25 4538025007) CALCIUM (test code = 9.0 mg/dL 8.6-10.6 7242054514) eGFR Calculation mL/min/1.73m2 (Non-) (test code = 0462573750) eGFR Calculation mL/min/1.73m2 () (test code = 0433723840) GILBERTO (test code = GILBERTO) Association of [...] tests). Lab Interpretation Abnormal (test code = 44080-2) [facility]2020-08-31 10:52:00 Test Item Value Reference Range Interpretation Comments MAGNESIUM (test code = 6485632416) 2.3 mg/dL 1.7-2.4 Lab Interpretation (test code = Normal 78939-2) [facility] 1 [id number] 13:26:55 FINDINGS/IMPRESSION: 1. ?A left pigtail chest [...] pleural effusion COMPARISON: Chest x-ray on 04/21/2020 [facility], Radiant Results Inft User - 04/22/2020 8:28 [...] reviewed this study and agree with theabove report.[facility] VW 2020-04-22 13:24:27FINDINGS/IMPRESSION: 1. ?A [...] in bed COMPARISON: Chest x-ray on 04/20/2020 [facility], Radiant Results Inft User - 04/22/2020 8:25 [...] this study and agree with theabove report. [facility] METABOLIC PANEL (NA, K, CL, CO2, GLUCOSE, BUN, CREATININE, CA)2020-04-22 11:49:00 Test Item Value Reference Range Interpretation Comments NA (test code = 132 mmol/L 135-145 L 3852375430) K (test code = 4.7 mmol/L 3.5-5 2652046890) CL (test code = 97 mmol/L 98-108 L 6820719266) CO2 TOTAL (test code = 30 mmol/L 23-31 5699352489) AGAP (test code = 2-16 1887457526) BUN (test code = 28 mg/dL 7-23 H 7289911036) GLUCOSE (test code = 117 mg/dL 70-110 H 8260706627) CREATININE (test code = 0.88 mg/dL 0.6-1.25 4908959346) CALCIUM (test code = 8.8 mg/dL 8.6-10.6 3244405645) eGFR Calculation mL/min/1.73m2 (Non-) (test code = 5015044195) eGFR Calculation mL/min/1.73m2 () (test code = 9982356383) GILBERTO (test code = GILBERTO) Association of [...] tests). Lab Interpretation Abnormal (test code = 87321-4) [facility]2020-08-30 11:49:00 Test Item Value Reference Range Interpretation Comments MAGNESIUM (test code = 0984254969) 2.4 mg/dL 1.7-2.4 Lab Interpretation (test code = Normal 84836-4) [facility] WITH [id number] 11:23:00 Test Item Value Reference Range Interpretation Comments WBC (test code = See_Comment H [Automated 6690-2) message] The sy stem which generated this result transmitted reference range : 4.20 - 10.70 10*3/?L. The reference range was not used to interpret this result as normal/abnormal . RBC (test code = See_Comment L [Automated 979-8) message] The sy stem which generated this [...] RDW-SD (test code = 44.9 fL 38.5-51.6 63357-4) RDW-CV (test code = 14.4 % 12.1-15.4 788-0) PLT (test code = See_Comment HH [Automated 777-3) message] The sy stem which generated this result transmitted reference range : 150 - 328 10*3/ ?L. The reference r meredith was not used to interpret this result as normal/abnormal . MPV (test code = 9.5 fL 9.8-13 L 81041-6) NRBC/100 WBC (test See_Comment [Automat ed code = [id number]) message] The system which generated this result transmitted reference range : 0.0 - 10.0 /100 WBCs. The refer ence range was not u sed to interpret th is result as normal/abnormal . NRBC x10^3 (test code <0.01 See_Comment [Auto mated = [id number]) message] The s ystem which generated this result transmitted reference range : 10*3/?L. The reference range was not used to interpret this result as normal/abnormal . GRAN MAT (NEUT) % 80.3 % (test code = 770-8) IMM GRAN % (test code 1.50 % = [id number]) LYMPH % (test code = 7.2 % 736-9) MONO % (test code = 9.7 % 5905-5) EOS % (test code = 0.7 % 713-8) BASO % (test code = 0.6 % 706-2) GRAN MAT x10^3(ANC) 9.99 10*3/uL 1.99-6.95 H (test code = [id number]) IMM GRAN x10^3 (test 0.19 10*3/uL 0-0.06 H code = [id number]) LYMPH x10^3 (test code 0.90 10*3/uL 1.09-3.23 L = 731-0) MONO x10^3 (test code 1.21 10*3/uL 0.36-1.02 H = 742-7) EOS x10^3 (test code = 0.09 10*3/uL 0.06-0.53 711-2) BASO x10^3 (test code 0.07 10*3/uL 0.01-0.09 = 704-7) Lab Interpretation Abnormal (test code = 04715-6) [facility] WITH [id number] 14:15:00 Test Item Value Reference Range Interpretation [...] RDW-SD (test code = 44.4 fL 38.5-51.6 79394-8) RDW-CV (test code = 14.2 % 12.1-15.4 788-0) PLT (test code = See_Comment HH [Automated 777-3) message] The sy stem which generated this result transmitted reference range : 150 - 328 10*3/ ?L. The reference r meredith was not used to interpret this result as normal/abnormal . MPV (test code = 9.0 fL 9.8-13 L 80677-1) NRBC/100 WBC (test See_Comment [Automat ed code = 7991743702) message] The system which generated this result transmitted reference range : 0.0 - 10.0 /100 WBCs. The refer ence range was not u sed to interpret th is result as normal/abnormal . NRBC x10^3 (test code <0.01 See_Comment [Auto mated = 5272139797) message] The s ystem which generated this result transmitted reference range : 10*3/?L. The reference range was not used to interpret this result as normal/abnormal . GRAN MAT (NEUT) % 76.4 % (test code = 770-8) IMM GRAN % (test code 1.30 % = 2947149370) LYMPH % (test code = 10.9 % 736-9) MONO % (test code = 9.6 % 5905-5) EOS % (test code = 1.1 % 713-8) BASO % (test code = 0.7 % 706-2) GRAN MAT x10^3(ANC) 9.41 10*3/uL 1.99-6.95 H (test code = 0124192788) IMM GRAN x10^3 (test 0.16 10*3/uL 0-0.06 H code = 3210444816) LYMPH x10^3 (test code 1.34 10*3/uL 1.09-3.23 = 731-0) MONO x10^3 (test code 1.18 10*3/uL 0.36-1.02 H = 742-7) EOS x10^3 (test code = 0.13 10*3/uL 0.06-0.53 711-2) BASO x10^3 (test code 0.08 10*3/uL 0.01-0.09 = 704-7) Lab Interpretation Abnormal (test code = 92513-7) [facility] METABOLIC PANEL (NA, K, CL, CO2, GLUCOSE, BUN, CREATININE, CA)2020-04-21 13:47:00 Test Item Value Reference Range Interpretation Comments NA (test code = 130 mmol/L 135-145 L 5368027020) K (test code = 4.8 mmol/L 3.5-5 2797950725) CL (test code = 95 mmol/L 98-108 L 8543563608) CO2 TOTAL (test code = 29 mmol/L 23-31 1903108063) AGAP (test code = 2-16 6259498261) BUN (test code = 25 mg/dL 7-23 H 1833262982) GLUCOSE (test code = 98 mg/dL 70-110 1299878403) CREATININE (test code = 0.78 mg/dL 0.6-1.25 2783081669) CALCIUM (test code = 8.2 mg/dL 8.6-10.6 L 4329480033) eGFR Calculation mL/min/1.73m2 (Non-) (test code = 5852611463) eGFR Calculation mL/min/1.73m2 () (test code = 6445970861) GILBERTO (test code = GILBERTO) Association of [...] tests). Lab Interpretation Abnormal (test code = 94405-3) [facility] 13:47:00 Test Item Value Reference Range Interpretation Comments MAGNESIUM (test code = 1117994767) 2.1 mg/dL 1.7-2.4 Lab Interpretation (test code = Normal 22096-3) [facility]2020-08-28 21:30:00 Test Item Value Reference Range Interpretation Comments PALB (test code = 74966-2) 9.3 mg/dL 18-45 L Lab Interpretation (test code = Abnormal 21588-4) [facility] RegionalBody Fluid [id number] 14:32:00 Test Item Value Reference Range Interpretation Comments BODY FLUID CULT No organisms isolated (test code = 611-4) Gram stain (test Occasional (Rare) code = 664-3) Polymorphonuclear leukocytes [facility] 1 [id number] 13:09:21EXAM: XR CHEST 1 VW HISTORY: ct [...] are normal. ? [facility], Radiant Results Inft - 04/20/2020 8:10 AM CDTEXAM: XR CHEST [...] The heart and great vessels are normal. [facility] (NA, K, CL, CO2, GLUCOSE, BUN, CREATININE, CA)2020-04-20 11:00:00 Test Item Value Reference Range Interpretation Comments NA (test code = 132 mmol/L 135-145 L 3679746260) K (test code = 5.2 mmol/L 3.5-5 H 2724941590) CL (test code = 100 mmol/L 98-108 8370074138) CO2 TOTAL (test code = 24 mmol/L 23-31 7673571129) AGAP (test code = 2-16 6426003215) BUN (test code = 19 mg/dL 7-23 1109592317) GLUCOSE (test code = 121 mg/dL 70-110 H 2509894670) CREATININE (test code = 0.77 mg/dL 0.6-1.25 4096943595) CALCIUM (test code = 8.2 mg/dL 8.6-10.6 L 0499540491) eGFR Calculation mL/min/1.73m2 (Non-) (test code = 2109475430) eGFR Calculation mL/min/1.73m2 () (test code = 5038193098) GILBERTO (test code = GILBERTO) Association of [...] tests). Lab Interpretation Abnormal (test code = 60390-9) [facility]2020-08-28 11:00:00 Test Item Value Reference Range Interpretation Comments MAGNESIUM (test code = 1958161046) 2.1 mg/dL 1.7-2.4 Lab Interpretation (test code = Normal 93812-4) [facility]2020-08-28 11:00:00 Test Item Value Reference Range Interpretation Comments PHOSPHORUS (test code = 4804354363) 3.9 mg/dL 2.5-5 Lab Interpretation (test code = Normal 80405-2) [facility] WITH [id number] 10:23:00 Test Item Value Reference Range Interpretation [...] RDW-SD (test code = 45.2 fL 38.5-51.6 20833-6) RDW-CV (test code = 14.2 % 12.1-15.4 788-0) PLT (test code = See_Comment HH [Automated 777-3) message] The system which generated this result transmit dain reference range : 150 - 328 10*3/ ?L. The reference range was not u sed to interpret th is result as normal/abnormal . MPV (test code = 9.3 fL 9.8-13 L 63888-4) NRBC/100 WBC (test See_Comment [Automat ed code = 6817667538) message] The system which generated this result transmit dain reference range : 0.0 - 10.0 /100 WBCs. The reference range was not used to interpret this result as normal/abnormal . NRBC x10^3 (test code <0.01 See_Comment [Auto mated = 6086730788) message] The system which generated this result transmit dain reference range : 10*3/?L. The reference range was not used to interpret this result as normal/abnormal . GRAN MAT (NEUT) % 79.8 % (test code = 770-8) IMM GRAN % (test code 1.50 % = 4559612885) LYMPH % (test code = 9.8 % 736-9) MONO % (test code = 7.5 % 5905-5) EOS % (test code = 0.6 % 713-8) BASO % (test code = 0.8 % 706-2) GRAN MAT x10^3(ANC) 10.64 10*3/uL 1.99-6.95 H (test code = 0530620417) IMM GRAN x10^3 (test 0.20 10*3/uL 0-0.06 H code = 5224335270) LYMPH x10^3 (test code 1.31 10*3/uL 1.09-3.23 = 731-0) MONO x10^3 (test code 1.00 10*3/uL 0.36-1.02 = 742-7) EOS x10^3 (test code = 0.08 10*3/uL 0.06-0.53 711-2) BASO x10^3 (test code 0.10 10*3/uL 0.01-0.09 H = 704-7) Lab Interpretation Abnormal (test code = 98169-6) [facility] 1 [id number] 12:25:53 No residual pleural effusion noted. Preliminary [...] abnormality. [facility], Radiant Results Inft User - 04/19/2020 7:27 [...] e ffusion noted.Preliminary Report Dictated by Resident: Hayden Galindo, Lincoln Olsen MD., have reviewed this study and agree with theabove report.[facility] (NA, K, CL, CO2, GLUCOSE, BUN, CREATININE, CA)2020-04-19 11:09:00 Test Item Value Reference Range Interpretation Comments NA (test code = 133 mmol/L 135-145 L 1103896071) K (test code = 4.2 mmol/L 3.5-5 4400678379) CL (test code = 101 mmol/L 98-108 9603373395) CO2 TOTAL (test code = 26 mmol/L 23-31 3778864618) AGAP (test code = 2-16 1503543247) BUN (test code = 15 mg/dL 7-23 8769104378) GLUCOSE (test code = 113 mg/dL 70-110 H 6922599971) CREATININE (test code = 0.73 mg/dL 0.6-1.25 8393679012) CALCIUM (test code = 8.1 mg/dL 8.6-10.6 L 2314972508) eGFR Calculation mL/min/1.73m2 (Non-) (test code = 1934700880) eGFR Calculation mL/min/1.73m2 () (test code = 1400239880) GILBERTO (test code = GILBERTO) Association of [...] tests). Lab Interpretation Abnormal (test code = 16541-3) [facility]2020-08-27 11:09:00 Test Item Value Reference Range Interpretation Comments MAGNESIUM (test code = 4472278861) 2.1 mg/dL 1.7-2.4 Lab Interpretation (test code = Normal 63912-1) [facility]2020-08-27 11:09:00 Test Item Value Reference Range Interpretation Comments PHOSPHORUS (test code = 5352278481) 3.9 mg/dL 2.5-5 Lab Interpretation (test code = Normal 25659-7) [facility] WITH [id number] 10:59:00 Test Item Value Reference Range Interpretation Comments WBC (test code = See_Comment H [Automated 5790-2) message] The sy stem which generated this result transmitted reference range : 4.20 - 10.70 10*3/?L. The reference range was not used to interpret this result as normal/abnormal . RBC (test code = See_Comment L [Automated 809-8) message] The sy stem which generated this [...] RDW-SD (test code = 46.0 fL 38.5-51.6 94404-7) RDW-CV (test code = 14.2 % 12.1-15.4 788-0) PLT (test code = See_Comment HH [Automated 777-3) message] The sy stem which generated this result transmitted reference range : 150 - 328 10*3/ ?L. The reference r meredith was not used to interpret this result as normal/abnormal . MPV (test code = 9.3 fL 9.8-13 L 57021-0) NRBC/100 WBC (test See_Comment [Automat ed code = 3153350962) message] The system which generated this result transmitted reference range : 0.0 - 10.0 /100 WBCs. The refer ence range was not u sed to interpret th is result as normal/abnormal . NRBC x10^3 (test code <0.01 See_Comment [Auto mated = 1354812062) message] The s ystem which generated this result transmitted reference range : 10*3/?L. The reference range was not used to interpret this result as normal/abnormal . GRAN MAT (NEUT) % 79.2 % (test code = 770-8) IMM GRAN % (test code 1.00 % = 9631066498) LYMPH % (test code = 11.4 % 736-9) MONO % (test code = 6.7 % 5905-5) EOS % (test code = 1.0 % 713-8) BASO % (test code = 0.7 % 706-2) GRAN MAT x10^3(ANC) 9.49 10*3/uL 1.99-6.95 H (test code = 6259325530) IMM GRAN x10^3 (test 0.12 10*3/uL 0-0.06 H code = 3478831160) LYMPH x10^3 (test code 1.36 10*3/uL 1.09-3.23 = 731-0) MONO x10^3 (test code 0.80 10*3/uL 0.36-1.02 = 742-7) EOS x10^3 (test code = 0.12 10*3/uL 0.06-0.53 711-2) BASO x10^3 (test code 0.08 10*3/uL 0.01-0.09 = 704-7) Lab Interpretation Abnormal (test code = 84987-8) [facility] [id number] 22:29:00 Test Item Value Reference Range Interpretation Comments Blood Culture-Aerobic No organisms No growth Previo us (test code = 93148-4) isolated prelim inary verified result was Culture In Progress on 04/13/2020 at 06 06 CDT Blood Culture positive. No growth AA Previous Culture-Anaerobic See Blood Culture preli minary (test code = 24898-9) Workup for verifi ed result additional was Culture In information. Progress on 04/12/2020 at 18 01 CDT Lab Interpretation Abnormal (test code = 76146-2) [facility]RA[facility] WITH TUBE WITH IMAGING 2020-04-18 15:38:00Successful image guided 10 [place] pigtail chest tube insertioninto the left [...] was obtained. Prior to beginning the procedure, Poyen Protocolwas performed to confirm the patient's identity [...] pleural space. The tractwas dilated to 10 [place], and a 10 [place] pigtail chest tube was insertedand coiled [...] demonstrated a large amount of pleural fluid. [facility], Radiant Results Inft User - 04/18/2020 10:39 [...] was obtained. Prior to beginning the procedure, Poyen Protocolwas performed to confirm the patient's identity [...] pleural space. The tractwas dilated to 10 [place], and a 10 [place] pigtail chest tube was insertedand coiled [...] of pleural fluid. IMPRESSIONSuccessful image guided 10 [place] pigtail chest tube insertioninto the left pleural space. PLAN: Post procedure chest radiograph will be obtained.[facility] 1 [id number] 13:37:38 Hazy left midlung opacity, may represent loculated pleural effusion.Further evaluation with CT of the chest is recommended. Preliminary Report Dictated by Resident: Hoang Roy MD., have reviewed this study and [...] chest is recommended.Preliminary Report Dictated by Resident: Hoang Gee MD., have reviewed this study and agree with the abovereport.[facility]OL[facility] (NA, K, CL, CO2, GLUCOSE, BUN, CREATININE, CA)2020-04-18 11:18:00 Test Item Value Reference Range Interpretation Comments NA (test code = 134 mmol/L 135-145 L 3357139211) K (test code = 4.4 mmol/L 3.5-5 2319434129) CL (test code = 102 mmol/L 98-108 7475734749) CO2 TOTAL (test code = 26 mmol/L 23-31 7216704176) AGAP (test code = 2-16 6452818730) BUN (test code = 12 mg/dL 7-23 7900508395) GLUCOSE (test code = 106 mg/dL 70-110 4618734395) CREATININE (test code = 0.74 mg/dL 0.6-1.25 6206441581) CALCIUM (test code = 7.5 mg/dL 8.6-10.6 L 6944232894) eGFR Calculation mL/min/1.73m2 (Non-) (test code = 3483439354) eGFR Calculation mL/min/1.73m2 () (test code = 8840782243) GILBERTO (test code = GILBERTO) Association of [...] tests). Lab Interpretation Abnormal (test code = 30783-8) [facility] Test Item Value Reference Range Interpretation Comments MAGNESIUM (test code = 2233638185) 2.0 mg/dL 1.7-2.4 Lab Interpretation (test code = Normal 41165-1) [facility]2020-08-26 11:18:00 Test Item Value Reference Range Interpretation Comments PHOSPHORUS (test code = 0242825165) 3.4 mg/dL 2.5-5 Lab Interpretation (test code = Normal 30453-4) [facility] WITH [id number] 10:46:00 Test Item Value Reference Range Interpretation [...] RDW-SD (test code = 46.5 fL 38.5-51.6 63782-5) RDW-CV (test code = 14.5 % 12.1-15.4 788-0) PLT (test code = See_Comment HH [Automated 777-3) message] The system which generated this result transmit dain reference range : 150 - 328 10*3/ ?L. The reference range was not u sed to interpret th is result as normal/abnormal . MPV (test code = 9.6 fL 9.8-13 L 01871-7) NRBC/100 WBC (test See_Comment [Automat ed code = 5040516041) message] The system which generated this result transmit dain reference range : 0.0 - 10.0 /100 WBCs. The reference range was not used to interpret this result as normal/abnormal . NRBC x10^3 (test code <0.01 See_Comment [Auto mated = 6147039108) message] The system which generated this result transmit dain reference range : 10*3/?L. The reference range was not used to interpret this result as normal/abnormal . GRAN MAT (NEUT) % 82.1 % (test code = 770-8) IMM GRAN % (test code 0.90 % = 3323884509) LYMPH % (test code = 9.2 % 736-9) MONO % (test code = 6.6 % 5905-5) EOS % (test code = 0.7 % 713-8) BASO % (test code = 0.5 % 706-2) GRAN MAT x10^3(ANC) 10.02 10*3/uL 1.99-6.95 H (test code = 7759763495) IMM GRAN x10^3 (test 0.11 10*3/uL 0-0.06 H code = 4884276582) LYMPH x10^3 (test code 1.12 10*3/uL 1.09-3.23 = 731-0) MONO x10^3 (test code 0.80 10*3/uL 0.36-1.02 = 742-7) EOS x10^3 (test code = 0.08 10*3/uL 0.06-0.53 711-2) BASO x10^3 (test code 0.06 10*3/uL 0.01-0.09 = 704-7) Lab Interpretation Abnormal (test code = 57538-8) [facility] [id number] 20:01:00 Test Item Value Reference Range Interpretation Comments Blood Culture-Aerobic No organisms No growth Previo us (test code = 53858-8) isolated prelim inary verified result was Culture [...] Culture-Anaerobic isolated preliminar y (test code = 12042-5) verifi ed result was Culture In Progress [...] CDT Lab Interpretation Normal (test code = 09410-4) [facility] 1 [id number] 19:38:57 FINDINGS/IMPRESSION: There are 2 left-sided chest [...] 2:35 PM on 04/17/[address] Mathieu Chapa.[facility] RegionalCyto Pleural [id number] 17:29:00 Test Item Value Reference Range Interpretation Comments Case Report (test code Non-Gynecologic = 6655701898) Cytology ?Case: [id number] ?Authorizing Provider: ?Vance Stafford MD ?Collected: ? 04/16/2020 1650 ?Ordering Location: ? ? Surgery ([facility]) ? Received: ?04/16/2020 1809 ?Pathologist: ? Alice Aj MD ? Specimen: ? ?PLEURAL, LEFT, EFFUSION ? Final Diagnosis (test h4ewlPSbHPDle0pyYOHdtT code = 1023844358) FuZzEwMzNcZnRuYmpcdWMx IQjchdMwPUzcj4QwB1QlFg AwMFxhbnNpXGRlZmxhbmcx VHTeYSI8koMuRTDdNVgoVR BtXImsAb9fhMNzuYfwMhLo VWNlj2xttyMBtrgeiHx4h4 pvGJLkWdN9dOBuLDstV3cr ycZgbTNhVONjFYx4bS16TO UkuT3xkLWaGImebeZwUrT4 HMjjOHAfYrE3ADVcxFHdKV WxN9dpSVCdJYcoWIPwFHna wFDpHTO6oTpvm1H0vNSivW OsoXikAjMdXbElTUKMh8Yh RFy2cBloI6ZgNYFhHrX6vH QgUGFyYWdyYXBoIEZvbnQ7 cQ58MBtfohB0lKRoy4Zsy2 8xs038lR1jvUTnNTL0FYBg RTXqzEMiLCTuVBQ3SZSdsA DqK8muQPuwYM2kkqyzAST0 MFxtYXJndDcyMFxtYXJnYj JenKWpIAZhnRcrUQdnj631 CPO7CcIhOB8zG7Hkk5X4kO 9maXRcZGVmdGFiNzIwXGZv tt2ucLAlKTmrc9IwAEB5om A7nCNjlTStCCFqEG57Abfm d6UmCiqmYQP7UYTfjaTva5 Wkq3wsZtWrhqPaM8ypI2Fj ZHJoZWFkXHBnYnJkcmZvb3 Tjb1QurHVagMa2x6drZSCb XUQkqHvip7ndQFK9VNJcL6 B5zVKfj3deLOztJPLorEI5 onUoTEIfhSQbT1YxiW7tJZ hwNF0onpg2l0pxEuPhWS8u lyhvm2lpTDrrXKRcPET6Sn WiQXQrx6MmkopmSvFui8Ob uQLvJOckV14vr342FOIciw XlQ8jsyREulthzmSMgvcyv EJmxbgR7VJMnlcCuoNceyG 5pGvFhRdFyAFafQX4zYKVb W6xxtEKuAWRiFFZfQ4dnIw DtxX2mdEnuOJjxZtAqHfBz MFxiIEEuICBQTEVVUkEsIE oPLeD2TNCCQ8CFB9OWDLTA SVMgRkxVSURccGFyICAgIC JlQQ1qIM0WYQFDUDVINC6I IMAEMcFAI36DHmCHFCeGHG 0YLHNHP7FNHFrGS1rmKXMr ICAgICAgLSBORUdBVElWRS JJU6XaMPOWMVoSFE8URFBR TExTXHBsYWluXGYxXGZzMj BcbGFuZzEwMzNcaGljaFxm VLmtFqCuZMFsGWxhY0hkHq GiHtEbUVHqXPEZCYDYW40N SO0WQHhaFID1c6biePAtZL BleQDwVmYhXGTcWCNar0wu ZGVmbGFuZzEwMzNcZnRuYm fblZBwBSIgXsUym2lmc595 zBYdn0beSKDdEbX8iCCqVC IcxHtwdic8yOdzZhCyPBHu c5qopbOcYkJbKRWxIFTyYH LshFUtY629VAYjNPtcz9io x2QeCYJakEFla8R1RKLALI deVkMfG908v2bwl3snuyGy yIJ9TOCkXGO0CUxnryDckw R0OTfumVRmMcI4MBpxebJa VCnczqSpvcPeLsr4UUXdM7 38LRX2zHnhf0rwFIW0XXZa IGJnWbzlRf0emWUvA544AB FoIPUTBJJcnNz5AWXqlmSy qzZqxJJCh041X387w7lbDU XhmoZgsVsDffehi8apL665 XHBhcGVydzEyMjQwXHBhcG EhfQY7UCZvJX2rrlgmTDxo GScnTDJvbtI8TALlbZOuP4 VqWWZeSC6lghimEFR4OGed BGMaGAP1CmBxPMBbx3Bwer b2RgLcpe1svk96TTN1z2Qk iNgbYWF6EXX7JkPiVf6mlX ZgAICrGQ6qKhOoaSPaXFRj bz76aElsCFnleiExvV9zVz ThOFVbiHLuZEEzPK8ljWNv CPKtzA2gppwdHHDrNwFtcs slPKBctNjekdRzDl8asFzc KPI4DIsiY5fqzD6yDzD3GI biM1fprC3sKVq2QAbimJL7 PSTutU9yHS6pbpakm7uoUY cuIRblNYAgzuR3tzY4OHNq pXKeJ4CmqE5uAKOaKE5zhj mls3lrVND3DCumYCKoHIQ6 OqBcTBVzo0Dlkam2MdOkv7 XoiELcCZcfL26kc389TVWq qhVvD2mmfWWvijhpaICkvs tlIGrywaJ1OIPwUGVhRKvi XGYxXGZzMjBcbGFuZzEwMz NcaGljaFxmMVxkYmNoXGYx VCbwN0llExGyZ4SwNDSoLv WclFOeVYgkqZG2CGWwSTWi x13vkLb9CFFdcbald8ShCP HqtQCtoMKolR6gjfOgg0ea DQNrGILrVILfJ3ZjOIG6mW MxWSUcvZOdfRC4FH2xrzWh SU7xIOUgFdcncqBsvLDkjs JlDUFxXEkau7aoWS7nZKIo wQezaD2dbRT6UZZro4rzrW UbdANfb1rzs4ByshGqSRsv FYIaCScmSYZeOIVeBQ1wTS PxaRFciaKhc5N2GxsnvULl znwnXtwkulS8CFsdsakhPO AsEEhtB1akJjOuBLQpoLtb Ioddd7WtICZgWJReSmybhC FyfX0= Final Diagnosis Comment g7cnrQOaMXDllCPmRfLrKC (test code = QxDAXpm7ryPHBykHEjSaHe 9238365332) MzNcZnRuYmpcdWMxXGRlZm Hbr8qux833sOWyh7ndHUOh NdG3zVWvTAUhjEAcU025w9 qdt4ktlbNcsIH7DSPyUYV2 BVcgohDckcW6AGdztOJtIp V5ZFjtzpPwQUtlfhTbtcYw Qco4DVJqE115KMX2pEzkd4 nbVYX4LXHvVXEeWvIvHf6n vRVoD682ERTfFGAWWGLrfM w7JUOughQksiOfzPRMv709 P040o9rsITDqyxRmdVsClg yyq7diU112ZJLfrXYypfBu McWsIPJhnINqnGN3FHXjWJ 8oazcwIRS3MTwxQVKxylCe XDRbqQZbE6B7MhMohTGqL4 GhNDwvKOZaify9BxBlSh3h dGWxcTW9MPcwg3gtt3dixM YeRnu3XDZlEbChLljrOKed i4Okh8rsNRXtsn8yDCD8fX HbcIuuj4E2jPDlGQCigULh cwDfPMRuVzZ4UUktCC5ppp 37EIDbHOB4fc7trHJyuYlv ehLgoBPsOGsaT7LqTYNfo5 95OAHdO7XcKXUzk1Y6seVv NqEoZPMnxNO5utF0DODfVF k8hFOzyzB8vzZbiKBjK7lu zQ9vYQlkHX6azsmdd8qhCC V2FPokUPUnvJG2gkuwXCgv CRBkQfX3mkSfpOEpMTGeuE wsNKqav721NBF4IzClSGYw i7MeO8SphUzfO18fyUjvY3 6zOZNhsKncbT4edXzbuP8r ZjBcZnMyNFxxbFxwbGFpbl xmMFxmczIwXGxhbmcxMDMz WZpkA2szKlDkOTSzfEqvMM brs7HbWEAxSMDfNjMtA89a MJXwh0vzw5RltXj1OIYorS 4mjMQkkPH2mN6iTImvrSyp bUVsJM4swQ1awqIngUWwKE I6dw0ekHhliixjEhR1AJs8 sBHai4V1sDHbJRXfQZPknJ ShiT2yWANiu81meFU7QY40 VCqezOutFG2dtREuPJ2zId 6xmCGwbYtbNK51IPGriYim WPggSK73wALzCCYlZRplWN J9 Clinical Information Clinical Hx: ?Total (test code = colectomy complicated [id number]) . Requested per consulting surgery team. Gross Description (test s5pznMViPADwpDMwCnFdDL code = 2781594506) CfGCEeg8zzVWYgeDTnJxPo MzNcZnRuYmpcdWMxXGRlZm Fts9rjd948gIUbj3tpJQHo OeU4bCVyAORhpFDqK041s3 ypr4kddnDjnGL6AMSvPNF0 GMtfpnKjvzH4PLioqHAaTd F6QUkntnWdQDjvntXwhfZt Ueu3ZVLsF230YJM3iIynt6 jwHGK4SVGbJLOhTwKkPk5z fTUmP760BENySQNQFFJxbN w6RXQdtoJtiyJbbWKGs602 M945m8brYCJuxlRhiTrGgx ank7mzK454XLBozBBwmiTd HfFdDKXtgPDnwXL7NQLvCC 6rxjhsHBU8RZbvRZUffuEj ZIMwbGQrI9Y1AbPgxOZfI7 VfWCcbUXTbiik6TdIzBn7m qDOmwIT6COeci7rhw7jgzA QuQnb5XNIhXhCnPsntEYlg r1Huu1iwOEOini8lJYF1mN UmbPhgs0A7rDFfBLWrsGWg swYmNFInSrI7BKwuHO5rbx 52NHBcRVQ6yh4bsFLjdGvm jzKncKXdAUqhY1WhCYZar3 05SUDwL1GbFVXgj7X7whKh ZeXoDEQlyCP2hhA1XKZeYS b5eXMoqzI3mzZwpNMxZ5vu tU4dVUfwOU1ctjgqf6cnWS W6BIzwBUSmzLA4jgpuJEtu QNDsLrP7ejRawHYyHVGoxY jlWYkwc613PCD5GhQdPYXm b7VwS7QkfJvkW08zrJqcI3 7jAOJjyTlguD8hzTfaeZ6j ZjBcZnMyNFxxbFxwbGFpbl xmMFxmczIwXGxhbmcxMDMz KYxjS8drGgRpJQZalYcrWQ icp6GvGEFpOPYeQeIuAWHl HKPQJFGUBwYzCZlEXmC0HU TJS9WFM9ASPZBACCTeAreI XEKveONeYYPgM4WfoqMkUK HyDJToIKxvUYWoKJKwQ5Ho i9CemCOinP97NYEfaAlrLX xwYXIgUHJlcGFyZWQgMiBz eZpiDWZmNNQrPWVhWI3zW4 6uRL48NTH1wW4vzUmcVSAm uwTrQBFBt22yrt83c1o9PM C7uP6kuFjvHGDwBZTxeiK5 iF1gWNlyWDZ8 Embedded Images (test code = 6155176820) [facility] [id number] 13:05:21EXAM: XR CHEST 1 VW HISTORY: post [...] the chest is little different than noted yesterday.[facility] WITH [id number] 11:18:00 Test Item Value Reference Range Interpretation Comments WBC (test code = See_Comment H [Automated 5490-2) message] The system which generated this result [...] RDW-SD (test code = 47.8 fL 38.5-51.6 23887-2) RDW-CV (test code = 14.7 % 12.1-15.4 788-0) PLT (test code = See_Comment HH [Automated 777-3) message] The system which generated this result transmit dain reference range : 150 - 328 10*3/ ?L. The reference range was not u sed to interpret th is result as normal/abnormal . MPV (test code = 9.9 fL 9.8-13 18842-8) NRBC/100 WBC (test See_Comment [Automat ed code = 3890635064) message] The system which generated this result transmit dain reference range : 0.0 - 10.0 /100 WBCs. The reference range was not used to interpret this result as normal/abnormal . NRBC x10^3 (test code <0.01 See_Comment [Auto mated = [id number]) message] The system which generated this result transmit dain reference range : 10*3/?L. The reference range was not used to interpret this result as normal/abnormal . GRAN MAT (NEUT) % 81.7 % (test code = 770-8) IMM GRAN % (test code 1.10 % = 9697812102) LYMPH % (test code = 9.1 % 736-9) MONO % (test code = 7.3 % 5905-5) EOS % (test code = 0.5 % 713-8) BASO % (test code = 0.3 % 706-2) GRAN MAT x10^3(ANC) 10.91 10*3/uL 1.99-6.95 H (test code = 3492036367) IMM GRAN x10^3 (test 0.15 10*3/uL 0-0.06 H code = 4419604205) LYMPH x10^3 (test code 1.21 10*3/uL 1.09-3.23 = 731-0) MONO x10^3 (test code 0.97 10*3/uL 0.36-1.02 = 742-7) EOS x10^3 (test code = 0.07 10*3/uL 0.06-0.53 711-2) BASO x10^3 (test code 0.04 10*3/uL 0.01-0.09 = 704-7) Lab Interpretation Abnormal (test code = 48821-8) [facility] METABOLIC PANEL (NA, K, CL, CO2, GLUCOSE, BUN, CREATININE, CA)2020-04-17 10:49:00 Test Item Value Reference Range Interpretation Comments NA (test code = 134 mmol/L 135-145 L 2327141954) K (test code = 4.2 mmol/L 3.5-5 5813262224) CL (test code = 103 mmol/L 98-108 4322073159) CO2 TOTAL (test code = 26 mmol/L 23-31 9448512604) AGAP (test code = 2-16 8436545908) BUN (test code = 12 mg/dL 7-23 3115030232) GLUCOSE (test code = 107 mg/dL 70-110 1447310394) CREATININE (test code = 0.74 mg/dL 0.6-1.25 9787707534) CALCIUM (test code = 7.8 mg/dL 8.6-10.6 L 5687490797) eGFR Calculation mL/min/1.73m2 (Non-) (test code = 8744765484) eGFR Calculation mL/min/1.73m2 () (test code = 8719058531) GILBERTO (test code = GILBERTO) Association of [...] tests). Lab Interpretation Abnormal (test code = 27941-1) [facility] 10:[facility]:00 Test Item Value Reference Range Interpretation Comments MAGNESIUM (test code = 7758121090) 2.3 mg/dL 1.7-2.4 Lab Interpretation (test code = Normal 19412-5) [facility] 10:49:00 Test Item Value Reference Range Interpretation Comments PHOSPHORUS (test code = 3010696346) 3.8 mg/dL 2.5-5 Lab Interpretation (test code = Normal 35790-9) [facility] T[facility] BODY [id number] 00:37:00 Test Item Value Reference Range Interpretation Comments LDH BF (test code = 3707 U/L 2859055303) UNSPUN BODY FLUID Light Yellow COLOR (test code = 8934628514) UNSPUN BODY FLUID Clear CLARITY (test code = 5384040318) SPUN BODY FLUID Light Yellow COLOR (test code = 5384854909) SPUN BODY FLUID Clear CLARITY (test code = 5157191056) Sediment (test code The sediment volume is 0.1 = 5935386376) mLs of the total fluid volume of 3mLs and its color is white. GILBERTO (test code = Test developed and GILBERTO) characteristics determined by [facility] Laboratory Services. [facility] RegionalXR CHEST 1 [id number] 00:22:53 1. ?Left lower lung zone 2 [...] fortechnique. Bones: No acute osseous abnormalityis seen. [facility], Radiant Results Inft User - 04/16/2020 7:23 [...] compared to 817 with a possible small pneumothorax.[facility] RegionalBODY FLUID DIRECT [id number] 00:10:00 Test Item Value Reference Range Interpretation Comments BF COLOR Light Yellow (test code = 5153164663) BF WBC Count See_Comment [Automated (test code = message] The sy stem 5593482693) which generated this result transmitted reference range : /?L. The refere nce range was not u sed to interpret th is result as normal/abnormal . BF RBC Count <3000 See_Comment [Automated (test code = message] The sy stem 9855851054) which generated this result transmitted reference range : /?L. The refere nce range was not u sed to interpret th is result as normal/abnormal . GILBERTO (test The reference range code = GILBERTO) and other method performance specifications have not been established for this body fluid. ?The test results must be integrated into the clinical context for interpretation. [facility] FLUID MANUAL [id number] 00:10:00 Test Item Value Reference Range Interpretation Comments BF SEGS (test code = 1053738624) 78 % MACROPHAGE (test code = 6560433892) 22 % #CELS CNTD (test code = 1125241829) [facility] RegionalAmylase Body [id number] 00:03:00 Test Item Value Reference Range Interpretation Comments AMYLASE BF (test 313 U/L code = 5240853314) UNSPUN BODY FLUID Yellow COLOR (test code = 2243354760) UNSPUN BODY FLUID Clear CLARITY (test code = 9931822424) SPUN BODY FLUID Yellow COLOR (test code = 1419689836) SPUN BODY FLUID Clear CLARITY (test code = 6710318440) Sediment (test code The sediment volume is = 2721342243) <0.1 mLs of the total fluid volume of 1mL and its color is red. GILBERTO (test code = Test developed and GILBERTO) characteristics determined by [facility] Laboratory Services. [facility] RegionalGlucose Body [id number] 00:03:00 Test Item Value Reference Range Interpretation Comments GLUCOSE BF (test 57 mg/dL code = 8662982762) UNSPUN BODY FLUID Yellow COLOR (test code = 3396293143) UNSPUN BODY FLUID Clear CLARITY (test code = 3316875193) SPUN BODY FLUID Yellow COLOR (test code = 1881938595) SPUN BODY FLUID Clear CLARITY (test code = 7378292790) Sediment (test code The sediment volume is = 4335522030) <0.1 mLs of the total fluid volume of 1mL and its color is red. GILBERTO (test code = Test developed and GILBERTO) characteristics determined by [facility] Laboratory Services. [facility] RegionalTotal Protein Body [id number] 00:03:00 Test Item Value Reference Range Interpretation Comments T.PROT BF (test 3000.0 mg/dL code = 9171647411) UNSPUN BODY FLUID Yellow COLOR (test code = 8336009885) UNSPUN BODY FLUID Clear CLARITY (test code = 2500040283) SPUN BODY FLUID Yellow COLOR (test code = 3670615572) SPUN BODY FLUID Clear CLARITY (test code = 0782653071) Sediment (test code The sediment volume is = 7515134869) <0.1 mLs of the total fluid volume of 1mL and its color is red. GILBERTO (test code = Test developed and GILBERTO) characteristics determined by [facility] Laboratory Services. [facility]PH, Body [id number] 23:56:00 Test Item Value Reference Range Interpretation Comments PH BF (test code = 3446770609) UNSPUN BODY FLUID COLOR Light Yellow (test code = 7529874976) UNSPUN BODY FLUID Clear CLARITY (test code = 7940894233) SPUN BODY FLUID COLOR Light Yellow (test code = 8187121890) SPUN BODY FLUID CLARITY Clear (test code = 5697445778) Sediment (test code = The sediment volume is 4055851952) 0.1 mLs of the total fluid volume of 5.5mLs and its color is white/red. [facility] RegionalIR DRAINAGE BY CATHETER PERITONEAL OR [id number] 21:10:26 Successful placement of a 12 [place] drain in the left upper quadrantcollection. Successful placement of a 14 [place] drain in the midline air fluidcollection. Successful placement of a 10 [place] drain in the right lower quadrant [...] those actually performingthe procedure. Please refer to [facility] regarding sedation time. RADIATION DOSE: 1957 mGy - cm. TECHNIQUE: The risks, benefits and alternatives were discussed and informed consentwas obtained. Prior to beginning the procedure, Poyen Protocol was usedto confirm the patient's identity and planned procedure. Maximum sterilebarriers including cap, mask, hand hygiene, sterile gloves, sterile gown,large sterile drape and cutaneous antisepsis were used. The anteriorabdominal wall was sterilely prepped, and draped. The skinoverlying the left upper, right upper, andright lower quadrants wasinfiltrated with lidocaine 2%. The targeted collection in the left upper quadrant was then accessed with r46-rwmmw quadrant needle using CT guidance. A 0.035 Amplatz wire wasadvanced through the coaxial needle. The tract was serially dilated to 12French. A pigtail 12 [place] catheter was placed in the left upper quadrantcollection. Approximately, 210 cc of purulent fluid was removed. The air-fluid collection in the mid abdomen was accessed through the rightupper quadrant. An 18 [place] pigtail catheter was placed in this collectionunder CT guidance in a similar fashion to thedrain and left upperquadrant. Approximately, 1250 cc of purulent material were removed. The fluid collection in the right lower quadrant was also accessed in asimilar fashion. A 10 [place] pigtail catheter was placed in this [...] aspirated at the time of the procedure. [facility], Radiant Results Inft User - 04/16/2020 4:11 PM CDTEXAMINATION: PERCUTANEOUS ASPIRATIONHISTORY: 50-year-old male with postoperative abdominal fluid collections SEDATION: Moderate sedation was administered under the supervision of atrained nurse specialist who was independent from those actually performingthe procedure. Please refer to [facility] regarding sedation time.RADIATION DOSE: 1957 mGy - cm.TECHNIQUE: The risks, benefits and alternatives were d iscussed and informed consentwas obtained. Prior to beginning the procedure, Poyen Protocol was usedto confirm the patient's identity [...] serially dilated to 12French. A pigtail 12 [place] catheter was placed in the left upper quadrantcollection. Approximately, 210 cc of purulent fluid was removed.The air-fluid collection in the mid abdomen was accessed through the rightupper quadrant. An 18 [place] pigtail catheter was placed in this collectionunder CT guidance in a similar fa shion to the drain and left upperquadrant. Approximately, 1250 cc of purulent material were removed.The fluid collection in the right lower quadrant was also accessed in asimilar fashion. A 10 [place] pigtail catheter was placed in this [...] left upper quadrantcollection.Successful placement of a 14 [place] drain in the midline air fluidcollection.Successful placement of a 10 [place] drain in the right lower quadrant fluidcollection.Preliminary Report Dictated by Resident: Hayden Murphy the attending radiologist I was present in the room for the entirety ofthe procedure.I, Neris Grier MD., have reviewed this study and agree with the abovereport.[facility]BODY FLUID CULTURE(AEROBIC/ANAEROBIC)2020-04-16 19:45:00 Test Item Value Reference Range Interpretation Comments BODY FLUID CULT 2+ Bacteroides fragillis (test code = 611-4) Gram stain (test Occasional (Rare) code = 664-3) Mononuclear cells [facility] RegionalPROTHROMBIN TIME / [id number] 16:38:00 Test Item Value Reference Range Interpretation Comments PROTIME PATIENT (test See_Comment H [Auto mated message] code = 5964-2) The system [employer] generated this result transmitted ref erence range: 10.1 - 1 2.6 Seconds. The reference range was not used to int erpret this result as normal/abnormal . INR (test code = 6301-6) Nor mal INR <1.1; Warfarin Therap eutic range 2.0 to 3. 0 or 2.5 to 3.5, dep ending upon the indica tions. Lab Interpretation (test Abnormal code = 51485-5) [facility] RegionalCT ABDOMEN PELVIS W [id number] 13:40:08Impression: 1. ?Interval placement of 4 percutaneous [...] degenerative changes and no suspicious focal lesions. [facility], Radiant Results Inft User - 04/16/2020 8:41 [...] and oral contrast seen up to the ostomy.[facility]OL[facility] (NA, K, CL, CO2, GLUCOSE, BUN, CREATININE, CA)2020-04-16 10:51:00 Test Item Value Reference Range Interpretation Comments NA (test code = 132 mmol/L 135-145 L 1285909131) K (test code = 4.1 mmol/L 3.5-5 2223543086) CL (test code = 103 mmol/L 98-108 1112749386) CO2 TOTAL (test code = 24 mmol/L 23-31 2156188910) AGAP (test code = 2-16 5169152220) BUN (test code = 13 mg/dL 7-23 4973851179) GLUCOSE (test code = 132 mg/dL 70-110 H 0183344951) CREATININE (test code = 0.77 mg/dL 0.6-1.25 3227819745) CALCIUM (test code = 7.4 mg/dL 8.6-10.6 L 2891373285) eGFR Calculation mL/min/1.73m2 (Non-) (test code = 9913713906) eGFR Calculation mL/min/1.73m2 () (test code = 6932248867) GILBERTO (test code = GILBERTO) Association of [...] tests). Lab Interpretation Abnormal (test code = 01520-9) [facility]MAGNESIUM2020-08-24 10:51:00 Test Item Value Reference Range Interpretation Comments MAGNESIUM (test code = 8391185965) 2.2 mg/dL 1.7-2.4 Lab Interpretation (test code = Normal 15228-5) [facility] RegionalPHOSPHORUS2020-08-24 10:51:00 Test Item Value Reference Range Interpretation Comments PHOSPHORUS (test code = 9013072211) 3.1 mg/dL 2.5-5 Lab Interpretation (test code = Normal 71545-3) [facility] RegionalCB WITH [id number] 10:37:00 Test Item Value Reference Range Interpretation Comments WBC (test code = See_Comment H [Automated 6690-2) message] The system which generated this result transmit dain reference range : 4.20 - 10.70 10*3/?L. The reference range was not used to interpret this result as normal/abnormal . RBC (test code = See_Comment L [Automated 569-8) message] The system which generated this result [...] RDW-SD (test code = 47.4 fL 38.5-51.6 18417-3) RDW-CV (test code = 14.7 % 12.1-15.4 788-0) PLT (test code = See_Comment H [Automated 777-3) message] The system which generated this result transmit dain reference range : 150 - 328 10*3/ ?L. The reference range was not u sed to interpret th is result as normal/abnormal . MPV (test code = 10.1 fL 9.8-13 18048-4) NRBC/100 WBC (test See_Comment [Automat ed code = 1406123996) message] The system which generated this result transmit dain reference range : 0.0 - 10.0 /100 WBCs. The reference range was not used to interpret this result as normal/abnormal . NRBC x10^3 (test code <0.01 See_Comment [Auto mated = 8659323800) message] The system which generated this result transmit dain reference range : 10*3/?L. The reference range was not used to interpret this result as normal/abnormal . GRAN MAT (NEUT) % 83.0 % (test code = 770-8) IMM GRAN % (test code 1.50 % = 6431506638) LYMPH % (test code = 7.6 % 736-9) MONO % (test code = 7.3 % 5905-5) EOS % (test code = 0.3 % 713-8) BASO % (test code = 0.3 % 706-2) GRAN MAT x10^3(ANC) 11.53 10*3/uL 1.99-6.95 H (test code = 3289641889) IMM GRAN x10^3 (test 0.21 10*3/uL 0-0.06 H code = 0488916093) LYMPH x10^3 (test code 1.05 10*3/uL 1.09-3.23 L = 731-0) MONO x10^3 (test code 1.01 10*3/uL 0.36-1.02 = 742-7) EOS x10^3 (test code = 0.04 10*3/uL 0.06-0.53 L 711-2) BASO x10^3 (test code 0.04 10*3/uL 0.01-0.09 = 704-7) Lab Interpretation Abnormal (test code = 27656-6) [facility] METABOLIC PANEL (NA, K, CL, CO2, GLUCOSE, BUN, CREATININE, CA)2020-04-15 11:01:00 Test Item Value Reference Range Interpretation Comments NA (test code = 132 mmol/L 135-145 L 6250659207) K (test code = 4.7 mmol/L 3.5-5 9556135511) CL (test code = 103 mmol/L 98-108 4210833530) CO2 TOTAL (test code = 22 mmol/L 23-31 L 0168031396) AGAP (test code = 2-16 6885099393) BUN (test code = 14 mg/dL 7-23 6413821240) GLUCOSE (test code = 114 mg/dL 70-110 H 9873185160) CREATININE (test code = 0.74 mg/dL 0.6-1.25 2800044814) CALCIUM (test code = 7.9 mg/dL 8.6-10.6 L 9195332334) eGFR Calculation mL/min/1.73m2 (Non-) (test code = 0585800578) eGFR Calculation mL/min/1.73m2 () (test code = 6968901832) GILBERTO (test code = GILBERTO) Association of [...] tests). Lab Interpretation Abnormal (test code = 51483-5) [facility]2020-08-23 11:01:00 Test Item Value Reference Range Interpretation Comments MAGNESIUM (test code = 5303661664) 2.1 mg/dL 1.7-2.4 Lab Interpretation (test code = Normal 48059-4) [facility]PHOSPHORUS2020-08-23 11:01:00 Test Item Value Reference Range Interpretation Comments PHOSPHORUS (test code = 1312101616) 3.4 mg/dL 2.5-5 Lab Interpretation (test code = Normal 87031-5) [facility] WITH [id number] 10:46:00 Test Item Value Reference Range Interpretation [...] RDW-SD (test code = 47.7 fL 38.5-51.6 00626-3) RDW-CV (test code = 15.0 % 12.1-15.4 788-0) PLT (test code = See_Comment H [Automated 777-3) message] The system which generated this result transmit dain reference range : 150 - 328 10*3/ ?L. The reference range was not u sed to interpret th is result as normal/abnormal . MPV (test code = 10.4 fL 9.8-13 20870-5) NRBC/100 WBC (test See_Comment [Automat ed code = 4344803353) message] The system which generated this result transmit dain reference range : 0.0 - 10.0 /100 WBCs. The reference range was not used to interpret this result as normal/abnormal . NRBC x10^3 (test code <0.01 See_Comment [Auto mated = 3953976326) message] The system which generated this result transmit dain reference range : 10*3/?L. The reference range was not used to interpret this result as normal/abnormal . GRAN MAT (NEUT) % 85.0 % (test code = 770-8) IMM GRAN % (test code 1.10 % = 0832809879) LYMPH % (test code = 7.2 % 736-9) MONO % (test code = 6.4 % 5905-5) EOS % (test code = 0.1 % 713-8) BASO % (test code = 0.2 % 706-2) GRAN MAT x10^3(ANC) 14.87 10*3/uL 1.99-6.95 H (test code = 4471173609) IMM GRAN x10^3 (test 0.20 10*3/uL 0-0.06 H code = 3805936617) LYMPH x10^3 (test code 1.25 10*3/uL 1.09-3.23 = 731-0) MONO x10^3 (test code 1.11 10*3/uL 0.36-1.02 H = 742-7) EOS x10^3 (test code = <0.03 0.06-0.53 L 711-2) BASO x10^3 (test code 0.03 10*3/uL 0.01-0.09 = 704-7) Lab Interpretation Abnormal (test code = 90006-2) [facility] METABOLIC PANEL (NA, K, CL, CO2, GLUCOSE, BUN, CREATININE, CA)2020-04-14 12:15:00 Test Item Value Reference Range Interpretation Comments NA (test code = 134 mmol/L 135-145 L 8058576074) K (test code = 4.9 mmol/L 3.5-5 9331213911) CL (test code = 105 mmol/L 98-108 7507052319) CO2 TOTAL (test code = 23 mmol/L 23-31 4468457924) AGAP (test code = 2-16 2203501845) BUN (test code = 16 mg/dL 7-23 9440313667) GLUCOSE (test code = 102 mg/dL 70-110 5887346146) CREATININE (test code = 0.82 mg/dL 0.6-1.25 0124629957) CALCIUM (test code = 7.9 mg/dL 8.6-10.6 L 6215161689) eGFR Calculation mL/min/1.73m2 (Non-) (test code = 5718595043) eGFR Calculation mL/min/1.73m2 () (test code = 6341075330) GILBERTO (test code = GILBERTO) Association of [...] tests). Lab Interpretation Abnormal (test code = 96789-3) [facility]2020-08-22 12:15:00 Test Item Value Reference Range Interpretation Comments MAGNESIUM (test code = 3768996825) 2.1 mg/dL 1.7-2.4 Lab Interpretation (test code = Normal 52208-1) [facility]PH[facility]2020-08-22 12:15:00 Test Item Value Reference Range Interpretation Comments PHOSPHORUS (test code = 9770794474) 4.2 mg/dL 2.5-5 Lab Interpretation (test code = Normal 30424-4) [facility] WITH [id number] 11:49:00 Test Item Value Reference Range Interpretation [...] RDW-SD (test code = 48.1 fL 38.5-51.6 62113-3) RDW-CV (test code = 15.1 % 12.1-15.4 788-0) PLT (test code = See_Comment H [Automated 777-3) message] The system which generated this result transmit dain reference range : 150 - 328 10*3/ ?L. The reference range was not u sed to interpret th is result as normal/abnormal . MPV (test code = 10.7 fL 9.8-13 27681-3) NRBC/100 WBC (test See_Comment [Automat ed code = 3290324624) message] The system which generated this result transmit dain reference range : 0.0 - 10.0 /100 WBCs. The reference range was not used to interpret this result as normal/abnormal . NRBC x10^3 (test code <0.01 See_Comment [Auto mated = 1682794526) message] The system which generated this result transmit dain reference range : 10*3/?L. The reference range was not used to interpret this result as normal/abnormal . GRAN MAT (NEUT) % 84.4 % (test code = 770-8) IMM GRAN % (test code 1.10 % = 8562888284) LYMPH % (test code = 7.4 % 736-9) MONO % (test code = 6.8 % 5905-5) EOS % (test code = 0.1 % 713-8) BASO % (test code = 0.2 % 706-2) GRAN MAT x10^3(ANC) 13.45 10*3/uL 1.99-6.95 H (test code = 3059259905) IMM GRAN x10^3 (test 0.18 10*3/uL 0-0.06 H code = 9449238003) LYMPH x10^3 (test code 1.18 10*3/uL 1.09-3.23 = 731-0) MONO x10^3 (test code 1.09 10*3/uL 0.36-1.02 H = 742-7) EOS x10^3 (test code = <0.03 0.06-0.53 L 711-2) BASO x10^3 (test code 0.03 10*3/uL 0.01-0.09 = 704-7) Lab Interpretation Abnormal (test code = 44695-8) [facility] TOTAL BODY [id number] 01:27:00 Test Item Value Reference Range Interpretation Comments LDH BF (test code = >6450 U/L 4576924610) UNSPUN BODY FLUID Yellow COLOR (test code = 1484880772) UNSPUN BODY FLUID Turbid CLARITY (test code = 6361078036) SPUN BODY FLUID Yellow COLOR (test code = 5469261198) SPUN BODY FLUID Clear CLARITY (test code = 9313312871) Sediment (test code The sediment volume is 0.1 = 6141326952) mLs of the total fluid volume of 5mLs and its color is Red/White. GILBERTO (test code = Test developed and GILBERTO) characteristics determined by [facility] Laboratory Services. [facility] METABOLIC PANEL (NA, K, CL, CO2, GLUCOSE, BUN, CREATININE, CA)2020-04-14 00:15:00 Test Item Value Reference Range Interpretation Comments NA (test code = 132 mmol/L 135-145 L 7659018647) K (test code = 5.3 mmol/L 3.5-5 H 0201087020) CL (test code = 105 mmol/L 98-108 7331576935) CO2 TOTAL (test code = 20 mmol/L 23-31 L 3418875608) AGAP (test code = 2-16 0532425328) BUN (test code = 14 mg/dL 7-23 2019203309) GLUCOSE (test code = 280 mg/dL 70-110 H 4470351668) CREATININE (test code = 0.75 mg/dL 0.6-1.25 0679811959) CALCIUM (test code = 7.4 mg/dL 8.6-10.6 L 9602621568) eGFR Calculation mL/min/1.73m2 (Non-) (test code = 3280823625) eGFR Calculation mL/min/1.73m2 () (test code = 8289065629) GILBERTO (test code = GILBERTO) Association of [...] tests). Lab Interpretation Abnormal (test code = 34049-1) [facility] WITHOUT [id number] 00:01:00 Test Item Value Reference Range Interpretation Comments WBC (test code = 6690-2) See_Comment H [A utomated message] The system [employer] generated this result transmit dain reference range : 4.20 - 10.70 10*3/?L. The reference range was not used to interpret this result as normal/abnormal . RBC (test code = 789-8) See_Comment L [Au tomated message] The system [employer] generated this result transmit dain reference range [...] See_Comment H [Au tomated message] The system [employer] generated this result transmit dain reference range : 150 - 328 10*3/?L. The reference range was not used to interpret this result as normal/abnormal . MPV (test code = 10.2 fL 9.8-13 92713-0) RDW-CV (test code = 15.3 % 12.1-15.4 788-0) RDW-SD (test code = 49.1 fL 38.5-51.6 72407-7) NRBC x10^3 (test code = <0.01 See_Comment [Au tomated message] 0868266418) The system [employer] generated this result transmit dain reference range : 10*3/?L. The reference range was not used to interpret this result as normal/abnormal . NRBC/100 WBC (test code See_Comment [Au tomated message] = 4526464254) The system [employer] generated this result transmit dain reference range : 0.0 - 10.0 /100 WBC s. The reference r meredith was not used to interpret this result as normal/abnormal . IPF % (test code = 1309545503) Lab Interpretation (test Abnormal code = 28712-6) [facility] DIRECT [id number] 23:40:00 Test Item Value Reference Range Interpretation Comments BF COLOR Yellow (test code = 3183762775) BF WBC Count See_Comment [Automated (test code = message] The sy stem 0240652921) which generated this result transmitted reference range : /?L. The refere nce range was not u sed to interpret th is result as normal/abnormal . BF RBC Count <3000 See_Comment [Automated (test code = message] The sy stem 7429292611) which generated this result transmitted reference range : /?L. The refere nce range was not u sed to interpret th is result as normal/abnormal . GILBERTO (test The reference range code = GILBERTO) and other method performance specifications have not been established for this body fluid. ?The test results must be integrated into the clinical context for interpretation. [facility] FLUID MANUAL [id number] 23:40:00 Test Item Value Reference Range Interpretation Comments BF SEGS (test code 99 % = 3482595360) BF LYMPHS (test 1 % code = 2879049385) #CELS CNTD (test code = 6206510699) GILBERTO (test code = Possible intracellular GILBERTO) bacteria. [facility] RegionalGLUCOSE BODY [id number] 23:17:00 Test Item Value Reference Range Interpretation Comments GLUCOSE BF (test <20 mg/dL code = 3532022509) UNSPUN BODY FLUID Yellow COLOR (test code = 6333733433) UNSPUN BODY FLUID Turbid CLARITY (test code = 1948563872) SPUN BODY FLUID Yellow COLOR (test code = 0220286263) SPUN BODY FLUID Clear CLARITY (test code = 4271046221) Sediment (test code The sediment volume is 0.1 = 6950423740) mLs of the total fluid volume of 5mLs and its color is Red/White. GILBERTO (test code = Test developed and GILBERTO) characteristics determined by [facility] Laboratory Services. [facility] RegionalT.PROTEIN BODY [id number] 22:52:00 Test Item Value Reference Range Interpretation Comments T.PROT BF (test 3000.0 mg/dL code = 1372010586) UNSPUN BODY FLUID Yellow COLOR (test code = 0092317274) UNSPUN BODY FLUID Turbid CLARITY (test code = 6678346720) SPUN BODY FLUID Yellow COLOR (test code = 2925301765) SPUN BODY FLUID Clear CLARITY (test code = 6011669460) Sediment (test code The sediment volume is 0.1 = 5753050817) mLs of the total fluid volume of 5mLs and its color is Red/White. GILBERTO (test code = Test developed and GILBERTO) characteristics determined by [facility] Laboratory Services. [facility] [id number] 19:44:00 Test Item Value Reference Range Interpretation Comments URINE CULTURE (test No aerobic growth (< code = 630-4) 1000 CFU/mL) [facility] NEGATIVE BLOOD PATHOGENS DNA [id number] 13:23:00 Test Item Value Reference Range Interpretation Comments Enterobacter species Positive Negative A (test code = 21619-6) GILBERTO (test code = GILBERTO) See blood culture result for additional information. ?Testing included eight identification and six resistance marker targets. Lab Interpretation Abnormal (test code = 47027-3) [facility] WITH [id number] 12:43:00 Test Item Value Reference Range Interpretation [...] RDW-SD (test code = 49.8 fL 38.5-51.6 10861-7) RDW-CV (test code = 15.3 % 12.1-15.4 788-0) PLT (test code = See_Comment H [Automated 777-3) message] The system which generated this result transmit dain reference range : 150 - 328 10*3/ ?L. The reference range was not u sed to interpret th is result as normal/abnormal . MPV (test code = 10.7 fL 9.8-13 43331-6) NRBC/100 WBC (test See_Comment [Automat ed code = 2837156049) message] The system which generated this result transmit dain reference range : 0.0 - 10.0 /100 WBCs. The reference range was not used to interpret this result as normal/abnormal . NRBC x10^3 (test code <0.01 See_Comment [Auto mated = 2185797087) message] The system which generated this result transmit dain reference range : 10*3/?L. The reference range was not used to interpret this result as normal/abnormal . GRAN MAT (NEUT) % 81.3 % (test code = 770-8) IMM GRAN % (test code 1.40 % = 6218652805) LYMPH % (test code = 8.0 % 736-9) MONO % (test code = 8.9 % 5905-5) EOS % (test code = 0.2 % 713-8) BASO % (test code = 0.2 % 706-2) GRAN MAT x10^3(ANC) 10.74 10*3/uL 1.99-6.95 H (test code = 3958589965) IMM GRAN x10^3 (test 0.18 10*3/uL 0-0.06 H code = 2593164893) LYMPH x10^3 (test code 1.06 10*3/uL 1.09-3.23 L = 731-0) MONO x10^3 (test code 1.17 10*3/uL 0.36-1.02 H = 742-7) EOS x10^3 (test code = <0.03 0.06-0.53 L 711-2) BASO x10^3 (test code <0.03 0.01-0.09 = 704-7) Lab Interpretation Abnormal (test code = 68061-8) [facility] (NA, K, CL, CO2, GLUCOSE, BUN, CREATININE, CA)2020-04-13 11:57:00 Test Item Value Reference Range Interpretation Comments NA (test code = 134 mmol/L 135-145 L 4170145063) K (test code = 4.6 mmol/L 3.5-5 1288237758) CL (test code = 106 mmol/L 98-108 0909355791) CO2 TOTAL (test code = 23 mmol/L 23-31 2660711345) AGAP (test code = 2-16 7582378260) BUN (test code = 14 mg/dL 7-23 1320858347) GLUCOSE (test code = 106 mg/dL 70-110 6865908520) CREATININE (test code = 0.84 mg/dL 0.6-1.25 8747518037) CALCIUM (test code = 7.7 mg/dL 8.6-10.6 L 1918194177) eGFR Calculation mL/min/1.73m2 (Non-) (test code = 6905735391) eGFR Calculation mL/min/1.73m2 () (test code = 1665799246) GILBERTO (test code = GILBERTO) Association of [...] tests). Lab Interpretation Abnormal (test code = 17417-0) [facility]2020-08-21 11:57:00 Test Item Value Reference Range Interpretation Comments MAGNESIUM (test code = 0739265527) 2.1 mg/dL 1.7-2.4 Lab Interpretation (test code = Normal 45689-7) [facility]2020-08-21 11:57:00 Test Item Value Reference Range Interpretation Comments PHOSPHORUS (test code = 7664985415) 3.4 mg/dL 2.5-5 Lab Interpretation (test code = Normal 53727-2) [facility] ABDOMEN PELVIS W [id number] 00:22:08 1. ?Multiple intraperitoneal collections as detailed [...] this study and agree with the abovereport. [facility]2020-08-20 23:20:00 Test Item Value Reference Range Interpretation Comments APPEARANCE (test code = Clear Clear 3466054027) COLOR (test code = Yellow Yellow 9910538556) PH (test code = 4.8-8.0 4517662176) SP GRAVITY (test code = 1.003-1.030 4308812592) GLU U QUAL (test code = Normal Normal 0816797915) BLOOD (test code = Negative Negative 2012141870) KETONES (test code = Negative Negative 0938105324) PROTEIN (test code = 30 mg/dL Negative A 2887-8) UROBILIN (test code = Normal Normal 5989156003) BILIRUBIN (test code = Negative Negative 3295023756) NITRITE (test code = Negative Negative 2216765326) LEUK ROGER (test code = Negative Negative 0155873579) RBC/HPF (test code = See_Comment [Autom ated message] 8616232756) The system [employer] generated this result transmitted ref erence range: 0 - 3 HP F. The reference range was not used to int erpret this result as normal/abnormal . WBC/HPF (test code = <1 See_Comment [Autom ated message] 0741376973) The system [employer] generated this result transmitted ref erence range: 0 - 5 HP F. The reference range was not used to int erpret this result as normal/abnormal . BACTERIA (test code = Negative Negative 0164506795) MUCOUS (test code = Slight Negative LPF A 1949737134) SQ EPITH (test code = See_Comment [Auto mated message] 1796007510) The system [employer] generated this result transmitted ref erence range: <=2 HPF. The reference range was not used to int erpret this result as normal/abnormal . Lab Interpretation (test Abnormal code = 96412-4) [facility] WITH [id number] 12:08:00 Test Item Value Reference Range Interpretation [...] RDW-SD (test code = 48.9 fL 38.5-51.6 98816-5) RDW-CV (test code = 15.4 % 12.1-15.4 788-0) PLT (test code = See_Comment [Automated 777-3) message] The sy stem which generated this result transmitted reference range : 150 - 328 10*3/ ?L. The reference r meredith was not used to interpret this result as normal/abnormal . MPV (test code = 11.2 fL 9.8-13 03054-0) NRBC/100 WBC (test See_Comment [Automat ed code = 5406300186) message] The system which generated this result transmitted reference range : 0.0 - 10.0 /100 WBCs. The refer ence range was not u sed to interpret th is result as normal/abnormal . NRBC x10^3 (test code <0.01 See_Comment [Auto mated = 0414300182) message] The s ystem which generated this result transmitted reference range : 10*3/?L. The reference range was not used to interpret this result as normal/abnormal . GRAN MAT (NEUT) % 79.9 % (test code = 770-8) IMM GRAN % (test code 1.30 % = 9973732715) LYMPH % (test code = 7.4 % 736-9) MONO % (test code = 11.0 % 5905-5) EOS % (test code = 0.2 % 713-8) BASO % (test code = 0.2 % 706-2) GRAN MAT x10^3(ANC) 9.56 10*3/uL 1.99-6.95 H (test code = 7860312076) IMM GRAN x10^3 (test 0.15 10*3/uL 0-0.06 H code = 4241102775) LYMPH x10^3 (test code 0.89 10*3/uL 1.09-3.23 L = 731-0) MONO x10^3 (test code 1.32 10*3/uL 0.36-1.02 H = 742-7) EOS x10^3 (test code = <0.03 0.06-0.53 L 711-2) BASO x10^3 (test code <0.03 0.01-0.09 = 704-7) Lab Interpretation Abnormal (test code = 98554-8) [facility] METABOLIC PANEL (NA, K, CL, CO2, GLUCOSE, BUN, CREATININE, CA)2020-04-12 10:43:00 Test Item Value Reference Range Interpretation Comments NA (test code = 133 mmol/L 135-145 L 2657084032) K (test code = 4.3 mmol/L 3.5-5 8547823531) CL (test code = 104 mmol/L 98-108 5451025715) CO2 TOTAL (test code = 22 mmol/L 23-31 L 0303113464) AGAP (test code = 2-16 1123484104) BUN (test code = 20 mg/dL 7-23 6802686694) GLUCOSE (test code = 108 mg/dL 70-110 8721074264) CREATININE (test code = 0.77 mg/dL 0.6-1.25 6407245577) CALCIUM (test code = 8.1 mg/dL 8.6-10.6 L 0346581261) eGFR Calculation mL/min/1.73m2 (Non-) (test code = 7588898744) eGFR Calculation mL/min/1.73m2 () (test code = 2510203382) GILBERTO (test code = GILBERTO) Association of [...] tests). Lab Interpretation Abnormal (test code = 49646-5) [facility]2020-08-20 10:43:00 Test Item Value Reference Range Interpretation Comments MAGNESIUM (test code = 7551336849) 2.0 mg/dL 1.7-2.4 Lab Interpretation (test code = Normal 72153-3) [facility]2020-08-20 10:43:00 Test Item Value Reference Range Interpretation Comments PHOSPHORUS (test code = 7412600860) 4.3 mg/dL 2.5-5 Lab Interpretation (test code = Normal 73160-9) [facility] [id number] 04:01:00 Test Item Value Reference Range Interpretation Comments Blood Culture-Aerobic No organisms No growth Previo us (test code = 12373-9) isolated prelim inary verified result was Culture [...] Culture-Anaerobic isolated preliminar y (test code = 67235-8) verifi ed result was Culture In Progress on 04/07/2020 at 02 01 CDTPrevious preliminary verified result was No growth a t 24 hours on 04/07/2020 at 23 01 CDTPrevious preliminary verified result was No growth a t 48 hours on 04/08/2020 at 23 CDTPrevious preliminary verified result was No growth a t 72 hours on 04/09/2020 at 23 CDT Lab Interpretation Normal (test code = 86836-6) [facility] [id number] 04:01:00 Test Item Value Reference Range Interpretation Comments Blood Culture-Aerobic No organisms No growth Previo us (test code = 77389-8) isolated prelim inary verified result was Culture [...] Culture-Anaerobic isolated preliminar y (test code = 86851-6) verifi ed result was Culture In Progress [...] CDT Lab Interpretation Normal (test code = 44924-1) [facility] (NA, K, CL, CO2, GLUCOSE, BUN, CREATININE, CA)2020-04-11 10:13:00 Test Item Value Reference Range Interpretation Comments NA (test code = 138 mmol/L 135-145 1344851910) K (test code = 3.9 mmol/L 3.5-5 6186343504) CL (test code = 106 mmol/L 98-108 4145775917) CO2 TOTAL (test code = 27 mmol/L 23-31 5315791111) AGAP (test code = 2-16 6851000303) BUN (test code = 24 mg/dL 7-23 H 3039354568) GLUCOSE (test code = 97 mg/dL 70-110 9376426842) CREATININE (test code = 0.63 mg/dL 0.6-1.25 9690481453) CALCIUM (test code = 8.1 mg/dL 8.6-10.6 L 9560753312) eGFR Calculation mL/min/1.73m2 (Non-) (test code = 9911747323) eGFR Calculation mL/min/1.73m2 () (test code = 5269757886) GILBERTO (test code = GILBERTO) Association of [...] tests). Lab Interpretation Abnormal (test code = 13475-3) [facility]2020-08-19 10:13:00 Test Item Value Reference Range Interpretation Comments MAGNESIUM (test code = 1396395228) 1.8 mg/dL 1.7-2.4 Lab Interpretation (test code = Normal 71774-4) [facility]2020-08-19 10:13:00 Test Item Value Reference Range Interpretation Comments PHOSPHORUS (test code = 5157983914) 3.6 mg/dL 2.5-5 Lab Interpretation (test code = Normal 77480-6) [facility] WITH [id number] 10:06:00 Test Item Value Reference Range Interpretation [...] RDW-SD (test code = 48.9 fL 38.5-51.6 56682-8) RDW-CV (test code = 15.3 % 12.1-15.4 788-0) PLT (test code = See_Comment [Automated 777-3) message] The sy stem which generated this result transmitted reference range : 150 - 328 10*3/ ?L. The reference r meredith was not used to interpret this result as normal/abnormal . MPV (test code = 11.7 fL 9.8-13 70780-4) NRBC/100 WBC (test See_Comment [Automat ed code = 9986708511) message] The system which generated this result transmitted reference range : 0.0 - 10.0 /100 WBCs. The refer ence range was not u sed to interpret th is result as normal/abnormal . NRBC x10^3 (test code <0.01 See_Comment [Auto mated = 6527349609) message] The s ystem which generated this result transmitted reference range : 10*3/?L. The reference range was not used to interpret this result as normal/abnormal . GRAN MAT (NEUT) % 75.6 % (test code = 770-8) IMM GRAN % (test code 1.10 % = 7306048180) LYMPH % (test code = 10.5 % 736-9) MONO % (test code = 11.0 % 5905-5) EOS % (test code = 1.5 % 713-8) BASO % (test code = 0.3 % 706-2) GRAN MAT x10^3(ANC) 5.56 10*3/uL 1.99-6.95 (test code = 0953947683) IMM GRAN x10^3 (test 0.08 10*3/uL 0-0.06 H code = 3131733671) LYMPH x10^3 (test code 0.77 10*3/uL 1.09-3.23 L = 731-0) MONO x10^3 (test code 0.81 10*3/uL 0.36-1.02 = 742-7) EOS x10^3 (test code = 0.11 10*3/uL 0.06-0.53 711-2) BASO x10^3 (test code <0.03 0.01-0.09 = 704-7) TOXIC CHANGES (test Present A code = 803-7) Lab Interpretation Abnormal (test code = 67842-2) [facility] [id number] 22:00:00 Test Item Value Reference Range Interpretation Comments Case Report (test code Surgical Pathology ? ? = [id number]) ?Case: [id number] ? Authorizing Provider: ?Person, MD Juventino ? Collected: ? 04/06/2020 1012 ?Ordering Location: ? ? [facility] OR ? Received: ?04/06/2020 1146 ? Department ? Pathologist: ? He, Shaneka, MD ? Specimen: ? ?SOFT TISSUE, OTHER, ileo rectal anastamosis ? Final Diagnosis (test u4pbfLZqVNZpt8apOMFxhV code = 6235143848) FuZzEwMzNcZnRuYmpcdWMx RSsxaoLwTXzsb6XhY6XmCj AwMFxhbnNpXGRlZmxhbmcx QXKcGJY7jlOcPCDfXMhaVM EtUAhhEn0nwIRchOzsLtQk GHWnx6pnwjEOlscndJo9f9 ouNTQtBuL1oCXsPLbfB3jc xuBbaNZsFPDcFXm9qT62EO MegO2pqYAhZInoofKqTgG9 ZXtfYTSzSvP5DTZlcXPzFY BvC2zjTRPlGBqoNGTvEHfn lHYfSHN2xPdax6X9oXEcbM DvcOweJvEaOwMaGYMCu6Px SZl1iPriO4XtBXWpDyA4wU QgUGFyYWdyYXBoIEZvbnQ7 hT48LMfrgiF2xJDhi1Olq9 6cg618qA4mzBKrSSK9VUFi JFHlyAMjXZXoAME6JGHsbZ ZeD8oyAGcjRL7cnsquZBU1 MFxtYXJndDcyMFxtYXJnYj IhgHRbSNOpjGufWHweu689 NKQ9LxQdAZ8jD4Wvu0Z6xC 9maXRcZGVmdGFiNzIwXGZv dr0vdXBmCGfhe3OaAVJ8hs Z3uFMlaVSuOIKlFF04Vezq t1ZaMznxSSG5EOOkrzWiy0 Hky3osJiGxddXzH6oyE9Mu ZHJoZWFkXHBnYnJkcmZvb3 Hct8JqaXHjvOq6o6nnWHRn MXFicAivt6zlQKU6TDSfK6 Y9vEPul3tcYCzcSEGxvSA8 keIvNHSiyFQfB8LblR0zMJ oqLB8jvsu8y0xgCiWgEJ8z dqacg3avIYknTKCtMUQ6Ow FrQTHzu8UdkouhMoAjk3Xb yGSsUVnyK78do478TFUsdj YbZ6aboNEzwvjwkEWrdhxf AHhpjvH3MCRhYAWdIXnkVZ YxXGZzMjBcbGFuZzEwMzNc aGljaFxmMVxkYmNoXGYxXG liV3kgNqXqUdAgKZjoNJRh QP4nZ79RD57xBBsQDA0zBm HTFKKXWSEGBWXFX87NG5rU MUFMZYBaKKDKK74HRdNWTT PXKPXVM1IZC814QEAbnnBz GEWaZR9iQbDVDMWTSFBDQS IDBWRDZZMHDZRQNNEtY5gH ICASAvIAB55QVjLHERkKBv tDYZ7XSFjLRvdyTQxTRVXA UMqGMypaJ3CZH1CSBAnXSD FORFxwYXIgICAgICAgICBQ CAUTOB1HWNRSU7kyYJLdLB AxXQYnDKSMV0AEIYkPRaNO YREMHO1AIIWCPQEFYEQEKL VccGFyXHBhclxwbGFpblxm MVxmczIyXGxhbmcxMDMzXG vkC2mhBsEuPVOjtXyjNXko m1KlUIRmGQLsZjrwweNkEO NlA9jcwNpaWKbuZLH6IL3c IZ6EY8zKJBC6BcH9VvVtWe TvCQG7LnBuMA6hmUuxcX2j BrVpLzSxMYgvRZ2mEMVwZ4 lusBCcHLCpOLWvP8vjMjWc yW6wtOwuAIgxgbErUOJghW PwKSIiwh14GVF4InXeq7W4 AFRrByZmVRPzGX4tvVpvIA CzSC1pFKLaM7jckA0voeb9 XuUkWMCtVjV2UKGjizA6Mp f1EQNpEGowp3eeb2DpJ4Pe yVFkwYk7j2trNLCnJdJ9xI HdEAhfI2jivcRbbRZyOYOv WXo7gZxyQuIaCGHuj0dwmi BcZmNoYXJzZXQwIENhbGli ovs0zE06ELQqwI2vpQZbVG zlokPuHkA3HHikRTSvXwW3 YQCuyLAtQWPjT9wlROSiBY chAFFxJAmjtCDeVLL0vDtx v8N5iFFuaWMzjDbtMcCgTe GrLXNZy8VxYWr4jSsgC4Ta SVYbKjL4aHCoKJBvVCzqME AnZPHduyZ5hE67AJrbroC3 wUFav0Ydl86bb857iH6kcU AxDQE2QKHoSMArcPBhMRFv FKL4PMLceJCoT3thBCAhLS 6szbzrJCavLKpjEEZvaSG7 HAKatTTvP1PvIXGrRIntQO Pyhxn6DhGtAy6vcAVhgAjd REagu2dhn7rmvOAoVfb0DC DcCpGaKknoTUnyl4Hbh4qm LEQrgz7pSEU0oUOnkEbjz4 U6mPGqTWDzvYVchuYvWHVc KjW9FFmcTS6frd06NEJlAV Y8ee4biDVzlIbgadJjrXNt EPyyH4AoLGJjv363FXMgA2 NqDBNyh8D0vnUpYyAoDQFc yJA5hkZ5FFMjSNk1vIYcny Q3llQfgRNfN4sujL4hENPu XQ2twymmt9feNRciIYmcFE RawCV2egQ9EKRyuQWzU9Ro bL5tCIVrZMqnRJOmlqc5Fl LxQc0ctJBhoYddITdpCwwb YWdlXHBnbmNvbnRccGduZG VjXHBsYWluXHBsYWluXGYw DJRqAbZeaFmajTlqvL4xEa VuUhCkJPtcNM6yYPBwB3dk qRXdQSMiBWYcR9rpKmWbtJ 9jaFxmMVxjZjJcZnMyMFxw YXIgSSBoYXZlIHBlcnNvbm PitTwmvfX4qXI0UYMtDOou TYQcCEAstOJxqz5tzKcwSC WiKE7iWFOmgfDhYWvyuCce REazZHX5VDCanBNtaDXdvI FkZSBieSByZXNpZGVudHMs IFHjzBuyq0Day6SlzXR4wU 8xu3nfj8LxCJEwfMR2FA30 kgU1vI8iNBMlAF5oAIAbRI 7vlHCkdQTlWYTvs87ltVba cyByZXBvcnQuXHBsYWluXG YyXGZzMjhcbGFuZzEwMzNc aGljaFxmMlxkYmNoXGYyXG umN2vhPjSrTqJgXRcuBCV7 fQ== Clinical Information Abdominal distention (test code = [R14.0] 9347543552) Gross Description (test i2buzVNfPSQqtAKlClOaND code = 4691596792) AxZQYdb6imXFQveJOtHoNs MzNcZnRuYmpcdWMxXGRlZm Nsn7mrj502jKRmf6pwIHWg DoD8dDIhYCXtsYFfW826WR NuLYkzt6dxq4LaIWAvwNPx g7D6JEUAgdkhlJn9iCmcM6 0mo1Y2FoqlT4xtWMLtCHsq WRKeGLoddXVsACW3RQJhID G8XLpapsJnigE0RLvibAOh SkD0UPc7w2hluKsqRAXyCG Z7f0psBYbnoeMoTK7xoa9l xUh4m1beegJxSRTjXLRteM TBOWJyX1EopKduIj4omLn3 cVqoMshkMDY3Ijl9JK1rdh 36zig6qRwjHYSeyfrvPlL2 RGtsNICfkmibIPj9TFfaKK FdcSSuVQVtkHWwB6KzQTws CX9srcu9PrIeJW6xlpwoLB ubUVItXXC5KzXcFTKtb5Nw zqdlElTpcv9hsy32KJA4a6 WdpRybVSU8EMT3XgJcIq8m gZAqGKGkLA9aRlVzpYMzZS Rgvd84wCycQWdjblSxsL4i WwRcYOUerQSnEIXbER6phZ TyGEKmvF2ugsafHATrUcQp kdloBZTdzRpezkCqHd6cyS maVSY1TDecU7ckoI1rNlX3 PFpoL3luvM2dZCz3FWviaM W2LJPkvQ0lJX2gqfjrm6xb PSU9VUqsIGTpnoG6luBkPJ JkhPHsN5KfoZ63LzDyqWPs V8BwmD9xYHmgEIFjblj7Ou SeTv9waFJhtOO2JGipAzij YWdlXHBnbmNvbnRccGduZG VjXHBsYWluXHBsYWluXGYw UOVdQvVsbEzsgBasyS3qCx BcZnMyMFxwbGFpblxmMFxm czIwIFNwZWNpbWVuIEEgcm UlSAd0PDVeZaPqu1zfuUUt QUweWJC2zQSfPXClFPZhGO IyPA12Y8ZwgoLwEAczBMzn cgFfNdRvGJOcr79zmKJ6bC IisYNjZNlqAYJpPVFnI4Je bRLbrbGduY9jz7ImvvBfBF 9aMCGbseYwm2JrPQ6cVDOz a3PvgSCoyMKlSYKqf9UtvM aakwIwQoYirB2rODKaaqIj x8japWXmMN81MWSbYVnqVY rnjmw3cUCawwOumlKxD5fg NmLirf7nZNSxBYlbkQVjkl tlQXfechUwXBD2MxHxRHpu OANejWhuoA1gNeVxJyWiMG Z0TjLmY56pLFdzpOH8FHCf FLFpmgYsd5PnvwDtq9u9fQ VmjGFdOSInB7DrrSEuhtPg mW4ah0Qcui8xSJJHjOIiq2 Pbx5TwhQDiHSYcl9DbkQuu niQtMR7vNAwnUL8jFENoCG voqJPrbi62NUZkEIIxpRme MJXvBBF7s57cr9ibLWMdaH WjFH0aEMC3qNGlshFxwGY4 uVDvBpFhCUmkdDR7ABBxDI fbGIJEyFInsRRdTo9fPKFt h89zfUBciV4yPJLlMUOoDz SsD30gRvWirDK5lUHvuRzl JCwezHIkS0evDUVvGALbCy LlSwLatGG9fYZavpCopDYa BO9ygnxpyn4pRAfvSDS1ge xiZ2ViVY5dtynmhgSqXHKx NH6nDY7gEIOcbfJuvXfmUQ RmVZYxwQMoVSypMNvgZ9io AXOhaqB8HSGynJ6vBQXomO IgHo2kSEUee28vj7q7BDE6 bTXbwC6sfYkbSOLhMOF1k1 0rf7rcECZ0EHIiLLLyoM0o PwQiZgZoQWwrRSFhIF9wTM LqAEXnyGLoq5MsoTHmhG5l BRTsbkYzmwWdTVJtrUJ3s6 EtVBOqoRQxt9RjYIM0qFXh WFRbiwWtXDBbCGShXS1izH FuCNTkvWJuf6XjgBR9mAUf XXYiV7Ddi08dMSBoWPZwrN XgcDI6PRKuAHTjJXNjfEsk hY0rGxZoXmMzFLc3KSLcOR KbOfc2OTNhMXhaLJLxCGMw MjAgQTQuXHBhclxwYXIgU2 NkyAoytoVap9OhCxsuEACe DTV0ZSBJUEA2NWmjg5PwN9 iiCFeruVOkF9oxNUYfXTBf SLJeqvBmoHe7OWniAKMpAL R2RZKJqJEleOLbyIZewIAh uKVmAETgjY6dLNBzmFEgf1 DeoTH0fKCnJZBrkcKKSgvo YTJtnnZndlO5sC1eUZLytU XjjYBwIJO5TwHgAP0ksaBe aICgJVDmJEV0cZ4rIQ7lHZ KcEGovRTWaq8YtMAOcBYWr HJXmkaXogCt6VZllTBQevF WuLVTorwPnsOcilR3iMiMq ZnMyMFxwbGFpblxmMVxmcz SeDNPsfKvtYRDlrYJoFZ9C QWjBFZTev6seE7pwtQNZu5 Nwg9HlfjJzEHLoOXgeUWQp XGZzMjBccGFyXHFsXHBsYW ueXCJfNBNrOmGlyIqwuM8u ZjBcZnMyMFxwYXJccGFyfQ == Embedded Images (test code = 0004886460) [facility] WITH [id number] 11:29:00 Test Item Value Reference Range Interpretation [...] RDW-SD (test code = 48.8 fL 38.5-51.6 72972-2) RDW-CV (test code = 15.2 % 12.1-15.4 788-0) PLT (test code = See_Comment L [Automated 777-3) message] The sy stem which generated this result transmitted reference range : 150 - 328 10*3/ ?L. The reference r meredith was not used to interpret this result as normal/abnormal . MPV (test code = 11.6 fL 9.8-13 53560-1) NRBC/100 WBC (test See_Comment [Automat ed code = 8198595262) message] The system which generated this result transmitted reference range : 0.0 - 10.0 /100 WBCs. The refer ence range was not u sed to interpret th is result as normal/abnormal . NRBC x10^3 (test code <0.01 See_Comment [Auto mated = 4287158895) message] The s ystem which generated this result transmitted reference range : 10*3/?L. The reference range was not used to interpret this result as normal/abnormal . GRAN MAT (NEUT) % 79.1 % (test code = 770-8) IMM GRAN % (test code 0.50 % = 0621193301) LYMPH % (test code = 11.0 % 736-9) MONO % (test code = 7.8 % 5905-5) EOS % (test code = 1.4 % 713-8) BASO % (test code = 0.2 % 706-2) GRAN MAT x10^3(ANC) 4.67 10*3/uL 1.99-6.95 (test code = 9944451604) IMM GRAN x10^3 (test 0.03 10*3/uL 0-0.06 code = 8557130862) LYMPH x10^3 (test code 0.65 10*3/uL 1.09-3.23 L = 731-0) MONO x10^3 (test code 0.46 10*3/uL 0.36-1.02 = 742-7) EOS x10^3 (test code = 0.08 10*3/uL 0.06-0.53 711-2) BASO x10^3 (test code <0.03 0.01-0.09 = 704-7) Lab Interpretation Abnormal (test code = 27090-8) [facility] Test Item Value Reference Range Interpretation Comments MAGNESIUM (test code = 5235754811) 1.7 mg/dL 1.7-2.4 Lab Interpretation (test code = Normal 37689-7) [facility] 11:19:00 Test Item Value Reference Range Interpretation Comments PHOSPHORUS (test code = 7625117211) 3.0 mg/dL 2.5-5 Lab Interpretation (test code = Normal 58186-8) [facility] 1 [id number] 13:59:01 Interval extubation and removal of enteric [...] reviewed this study and agree with theabove report.[facility] (ALB,T.PRO,BILI T,BU/BC,ALT,AST,ALK PHOS) 2020-04-09 11:52:00 Test Item Value Reference Range Interpretation Comments TOTAL BILI (test code = 8606653398) 1.2 mg/dL 0.1-1.1 H BILI UNCON (test code = 5329190113) 0.8 mg/dL 0.1-1.1 BILI CONJ (test code = 9488465415) 0.0 mg/dL 0-0.3 T PROTEIN (test code = 4850130229) 4.2 g/dL 6.3-8.2 L ALBUMIN (test code = 2901451064) 2.2 g/dL 3.5-5 L ALK PHOS (test code = 5821786511) 36 U/L 34-122 ALTv (test code = 1742-6) 13 U/L 5-50 AST(SGOT) (test code = 4803290259) 23 U/L 13-40 Lab Interpretation (test code = Abnormal 77018-6) [facility] [id number] 10:01:00 Test Item Value Reference Range Interpretation [...] RDW-SD (test code = 47.6 fL 38.5-51.6 74923-8) RDW-CV (test code = 14.8 % 12.1-15.4 788-0) PLT (test code = See_Comment L [Automated 777-3) message] The sy stem which generated this result transmitted reference range : 150 - 328 10*3/ ?L. The reference r meredith was not used to interpret this result as normal/abnormal . MPV (test code = 11.6 fL 9.8-13 43840-7) NRBC/100 WBC (test See_Comment [Automat ed code = 5717159854) message] The system which generated this result transmitted reference range : 0.0 - 10.0 /100 WBCs. The refer ence range was not u sed to interpret th is result as normal/abnormal . NRBC x10^3 (test code <0.01 See_Comment [Auto mated = 4081402236) message] The s ystem which generated this result transmitted reference range : 10*3/?L. The reference range was not used to interpret this result as normal/abnormal . GRAN MAT (NEUT) % 87.5 % (test code = 770-8) IMM GRAN % (test code 0.90 % = 7942644100) LYMPH % (test code = 7.5 % 736-9) MONO % (test code = 3.4 % 5905-5) EOS % (test code = 0.5 % 713-8) BASO % (test code = 0.2 % 706-2) GRAN MAT x10^3(ANC) 5.12 10*3/uL 1.99-6.95 (test code = 0991318788) IMM GRAN x10^3 (test 0.05 10*3/uL 0-0.06 code = 2555403280) LYMPH x10^3 (test code 0.44 10*3/uL 1.09-3.23 L = 731-0) MONO x10^3 (test code 0.20 10*3/uL 0.36-1.02 L = 742-7) EOS x10^3 (test code = 0.03 10*3/uL 0.06-0.53 L 711-2) BASO x10^3 (test code <0.03 0.01-0.09 = 704-7) DOHLE BODIES (test Present A code = 7792-5) TOXIC CHANGES (test Present A code = 803-7) Lab Interpretation Abnormal (test code = 89462-7) [facility] METABOLIC PANEL (NA, K, CL, CO2, GLUCOSE, BUN, CREATININE, CA)2020-04-09 09:37:00 Test Item Value Reference Range Interpretation Comments NA (test code = 135 mmol/L 135-145 2365511012) K (test code = 3.6 mmol/L 3.5-5 0278620409) CL (test code = 105 mmol/L 98-108 8841047330) CO2 TOTAL (test code = 31 mmol/L 23-31 2458935786) AGAP (test code = <1 2-16 L 2175520223) BUN (test code = 28 mg/dL 7-23 H 0591169579) GLUCOSE (test code = 95 mg/dL 70-110 1244317504) CREATININE (test code = 0.78 mg/dL 0.6-1.25 3885658684) CALCIUM (test code = 8.1 mg/dL 8.6-10.6 L 9230905646) eGFR Calculation mL/min/1.73m2 (Non-) (test code = 4435309195) eGFR Calculation mL/min/1.73m2 () (test code = 1945540049) GILBERTO (test code = GILBERTO) Association of [...] tests). Lab Interpretation Abnormal (test code = 58883-4) [facility] 09:36:00 Test Item Value Reference Range Interpretation Comments MAGNESIUM (test code = 8911572234) 1.8 mg/dL 1.7-2.4 Lab Interpretation (test code = Normal 03993-6) [facility]PH[facility]2020-08-17 09:36:00 Test Item Value Reference Range Interpretation Comments PHOSPHORUS (test code = 1336609704) 1.8 mg/dL 2.5-5 L Lab Interpretation (test code = Abnormal 28460-1) [facility] + LACTIC [id number] 21:18:00 Test Item Value Reference Range Interpretation Comments PH (test code = 2) 7.35-7.45 PCO2 (test code = See_Comment [Automate d 2776836925) message] The sy stem which generated this result transmitted reference range : 35 - 45 mmHg. The reference range was not used to interpret this result as normal/abnormal . PO2 (test code = See_Comment L [Automated 4821619857) message] The sy stem which generated this result transmitted reference range : 80 - 100 mmHg. The reference range was not used to interpret this result as normal/abnormal . HCO3 (test code = See_Comment [Automate d 6327116050) message] The sy stem which generated this result transmitted reference range : 22 - 26 mEq/L. The reference range was not used to interpret this result as normal/abnormal . BE (test code = See_Comment [Automated 7170732207) message] The sy stem which generated this result transmitted reference range : -3.0 - 3.0 mEq/ L. The reference r meredith was not used to interpret this result as normal/abnormal . THB (test code = 9.2 g/dL 13.5-18 L 9838969618) %O2HB (test code = 94.3 % 94-99 7119936985) %COHB ART (test code = 0.7 % 0-1.5 7752447268) %METHB ART (test code = 0.3 % 0.4-1.5 L 2547007260) VOL%O2 ART (test code = 12.3 % 15-23 L 2742141417) NA (test code = 135 mmol/L 135-145 5758454018) K+ (test code = 3.7 mmol/L 3.5-5 6469167760) AC CA IONZ (test code = 4.90 mg/dL 4.5-5.3 5729526278) GLUCOSE (test code = 94 mg/dL 70-110 9736999869) LACTIC ACID (test code 1.35 mmol/L = 8215243589) Lab Interpretation Abnormal (test code = 88312-0) [facility]2020-04-08 16:33:00 Test Item Value Reference Range Interpretation Comments POCT GLU (test code = 6699307737) 109 mg/dL 70-110 Lab Interpretation (test code = Normal 81586-7) [facility] GLUCOSE (AUTOMATED)2020-04-08 16:33:00 Test Item Value Reference Range Interpretation Comments POCT GLU (test code = 5286289902) 120 mg/dL 70-110 H Lab Interpretation (test code = Abnormal 87367-0) [facility] GLUCOSE (AUTOMATED)2020-04-08 16:33:00 Test Item Value Reference Range Interpretation Comments POCT GLU (test code = 4476536713) 93 mg/dL 70-110 Lab Interpretation (test code = Normal 43365-3) [facility] GLUCOSE (AUTOMATED)2020-04-08 12:46:00 Test Item Value Reference Range Interpretation Comments POCT GLU (test code = 1667387876) 109 mg/dL 70-110 Lab Interpretation (test code = Normal 32609-3) [facility] WITH [id number] 10:21:00 Test Item Value Reference Range Interpretation [...] RDW-SD (test code = 48.4 fL 38.5-51.6 42814-1) RDW-CV (test code = 15.0 % 12.1-15.4 788-0) PLT (test code = See_Comment L [Automated 777-3) message] The system which generated this result transmitted reference range : 150 - 328 10*3/?L. The reference range was not used to interpret this result as normal/abnormal . MPV (test code = 11.4 fL 9.8-13 26896-3) NRBC/100 WBC (test See_Comment [Automat ed code = 8363359917) message] The system which generated this result transmitted reference range : 0.0 - 10.0 /100 WBCs. The reference range was not used to interpret this result as normal/abnormal . NRBC x10^3 (test code <0.01 See_Comment [Auto mated = 7454892253) message] The system which generated this result transmitted reference range : 10*3/?L. The reference range was not used to interpret this result as normal/abnormal . GRAN MAT (NEUT) % 84.9 % (test code = 770-8) IMM GRAN % (test code 0.80 % = 3507945481) LYMPH % (test code = 7.9 % 736-9) MONO % (test code = 5.3 % 5905-5) EOS % (test code = 0.3 % 713-8) BASO % (test code = 0.8 % 706-2) GRAN MAT x10^3(ANC) 3.34 10*3/uL 1.99-6.95 (test code = 4178737419) IMM GRAN x10^3 (test 0.03 10*3/uL 0-0.06 code = 4030423458) LYMPH x10^3 (test 0.31 10*3/uL 1.09-3.23 L [...] BANDS (test code = MARKED INCREASED A 4224860828) DOHLE BODIES (test Present A code = 7792-5) TOXIC CHANGES (test Present A code = 803-7) Lab Interpretation Abnormal (test code = 26371-0) [facility] METABOLIC PANEL (NA, K, CL, CO2, GLUCOSE, BUN, CREATININE, CA)2020-04-08 10:02:00 Test Item Value Reference Range Interpretation Comments NA (test code = 138 mmol/L 135-145 9889862210) K (test code = 4.1 mmol/L 3.5-5 8380056535) CL (test code = 109 mmol/L 98-108 H 2301714851) CO2 TOTAL (test code = 25 mmol/L 23-31 4278629449) AGAP (test code = 2-16 1431871986) BUN (test code = 26 mg/dL 7-23 H 1339782209) GLUCOSE (test code = 103 mg/dL 70-110 8077609216) CREATININE (test code = 0.90 mg/dL 0.6-1.25 7864349219) CALCIUM (test code = 8.4 mg/dL 8.6-10.6 L 5659782936) eGFR Calculation mL/min/1.73m2 (Non-) (test code = 3242233513) eGFR Calculation mL/min/1.73m2 () (test code = 5472462182) GILBERTO (test code = GILBERTO) Association of [...] tests). Lab Interpretation Abnormal (test code = 05133-1) [facility]2020-[facility]-16 10:02:00 Test Item Value Reference Range Interpretation Comments MAGNESIUM (test code = 5602615103) 2.6 mg/dL 1.7-2.4 H Lab Interpretation (test code = Abnormal 57116-0) [facility] + LACTIC [id number] 09:43:00 Test Item Value Reference Range Interpretation Comments PH (test code = 7.32-7.42 2974223265) PCO2 PANKAJ (test code = See_Comment [Auto mated 3746847343) message] The sy stem which generated this result transmitted reference range : 41 - 51 mmHg. The reference range was not used to interpret this result as normal/abnormal . PO2 PANKAJ (test code = See_Comment [Autom ated 2520883545) message] The sy stem which generated this result transmitted reference range : 25 - 40 mmHg. The reference range was not used to interpret this result as normal/abnormal . HCO3 PANKAJ (test code = See_Comment [Auto mated 8086721049) message] The sy stem which generated this result transmitted reference range : 24 - 28 mEq/L. The reference range was not used to interpret this result as normal/abnormal . AC VBE(BEAKER) (test mEq/L code = 8747140819) THB PANKAJ (test code = 11.4 g/dL 13.5-18 L 9110821887) %O2HB PANKAJ (test code = 64.9 % 52-63 H 9056068582) %COHB PANKAJ (test code = 1.0 % 0-1.5 0784135912) %METHB PANKAJ (test code = 0.3 % 0.4-1.5 L 8288863163) VOL%O2 PANKAJ (test code = 10.4 % 6-12 9390197676) NA (test code = 138 mmol/L 135-145 0082394515) K+ (test code = 4.1 mmol/L 3.5-5 5173382287) AC CA IONZ (test code = 4.90 mg/dL 4.5-5.3 4125222416) GLUCOSE (test code = 98 mg/dL 70-110 2775082704) LACTIC ACID (test code 1.90 mmol/L = 2318679755) Lab Interpretation Abnormal (test code = 98393-6) [facility]2020-04-08 04:25:00 Test Item Value Reference Range Interpretation Comments POCT GLU (test code = 2646576144) 106 mg/dL 70-110 Lab Interpretation (test code = Normal 27874-7) [facility]XR CHEST 1 [id number] 22:55:21Impression: Stable findings with no new changes.Exam: [...] lefthemidiaphragm. Bones and upper abdomen are unchanged. [facility], Radiant Results Inft User - 04/07/2020 5:56 [...] unchanged.IMPRESSIONIm pression: Stable findings with no new changes.[facility] MRSA / MSSA Screen by PCR, [id number] 19:28:00 Test Item Value Reference Range Interpretation Comments MSSA Screen by PCREstefanía (test code Negative Negative = 37102-2) MRSA/MSSA Positive? (test code = No No 0086240497) Lab Interpretation (test code = Normal 68021-9) [facility]2020-04-07 17:01:00 Test Item Value Reference Range Interpretation Comments POCT GLU (test code = 1958678198) 95 mg/dL 70-110 Lab Interpretation (test code = Normal 22631-3) [facility] + LACTIC [id number] 14:15:00 Test Item Value Reference Range Interpretation Comments PH (test code = 2) 7.35-7.45 L PCO2 (test code = See_Comment [Automate d 9776695236) message] The sy stem which generated this result transmitted reference range : 35 - 45 mmHg. The reference range was not used to interpret this result as normal/abnormal . PO2 (test code = See_Comment H [Automated 7231605657) message] The sy stem which generated this result transmitted reference range : 80 - 100 mmHg. The reference range was not used to interpret this result as normal/abnormal . HCO3 (test code = See_Comment L [Automate d 8563290378) message] The sy stem which generated this result transmitted reference range : 22 - 26 mEq/L. The reference range was not used to interpret this result as normal/abnormal . BE (test code = See_Comment L [Automated 5821864235) message] The sy stem which generated this result transmitted reference range : -3.0 - 3.0 mEq/ L. The reference r meredith was not used to interpret this result as normal/abnormal . THB (test code = 9.6 g/dL 13.5-18 L 6382591669) %O2HB (test code = 98.6 % 94-99 2562130408) %COHB ART (test code = 0.3 % 0-1.5 0853982204) %METHB ART (test code = 0.0 % 0.4-1.5 L 1234906345) VOL%O2 ART (test code = NA 7376021500) NA (test code = 131 mmol/L 135-145 L 6237527723) K+ (test code = 4.3 mmol/L 3.5-5 6680184875) AC CA IONZ (test code = 4.60 mg/dL 4.5-5.3 8643793498) GLUCOSE (test code = 147 mg/dL 70-110 H 4292631411) LACTIC ACID (test code 3.12 mmol/L 0.5-2.2 H = 8972885379) Lab Interpretation Abnormal (test code = 77594-3) [facility] RegionalLaiaic Acid Whole [id number] 14:00:00 Test Item Value Reference Range Interpretation Comments LACTIC ACID (test code = 3.12 mmol/L 2317828516) [facility] GLUCOSE (AUTOMATED)2020-04-07 12:53:00 Test Item Value Reference Range Interpretation Comments POCT GLU (test code = 4553954809) 140 mg/dL 70-110 H Lab Interpretation (test code = Abnormal 26057-3) [facility] + LACTIC [id number] 12:01:00 Test Item Value Reference Range Interpretation Comments PH (test code = 2) 7.35-7.45 L PCO2 (test code = See_Comment L [Automate d 1793479112) message] The sy stem which generated this result transmitted reference range : 35 - 45 mmHg. The reference range was not used to interpret this result as normal/abnormal . PO2 (test code = See_Comment H [Automated 6716975622) message] The sy stem which generated this result transmitted reference range : 80 - 100 mmHg. The reference range was not used to interpret this result as normal/abnormal . HCO3 (test code = See_Comment L [Automate d 5368473827) message] The sy stem which generated this result transmitted reference range : 22 - 26 mEq/L. The reference range was not used to interpret this result as normal/abnormal . BE (test code = See_Comment L [Automated 8259436584) message] The sy stem which generated this result transmitted reference range : -3.0 - 3.0 mEq/ L. The reference r meredith was not used to interpret this result as normal/abnormal . THB (test code = 10.8 g/dL 13.5-18 L 2401147458) %O2HB (test code = 98.8 % 94-99 7633891096) %COHB ART (test code = 0.3 % 0-1.5 5307505787) %METHB ART (test code = 0.0 % 0.4-1.5 L 0146631748) VOL%O2 ART (test code = 15.4 % 15-23 1035640835) NA (test code = 126 mmol/L 135-145 L 2014730991) K+ (test code = 4.3 mmol/L 3.5-5 6500783108) AC CA IONZ (test code = 4.70 mg/dL 4.5-5.3 3498180915) GLUCOSE (test code = 144 mg/dL 70-110 H 2251900698) LACTIC ACID (test code 2.79 mmol/L = 1649983145) Lab Interpretation Abnormal (test code = 11222-8) [facility]UR[facility] [id number] 11:44:00 Test Item Value Reference Range Interpretation Comments URINE CULTURE (test No aerobic growth (< code = 630-4) 1000 CFU/mL) [facility] WITH [id number] 09:53:00 Test Item Value Reference Range Interpretation [...] RDW-SD (test code = 48.8 fL 38.5-51.6 98413-6) RDW-CV (test code = 15.0 % 12.1-15.4 788-0) PLT (test code = See_Comment L [Automated 777-3) message] The sy stem which generated this result transmitted reference range : 150 - 328 10*3/ ?L. The reference r meredith was not used to interpret this result as normal/abnormal . MPV (test code = 11.8 fL 9.8-13 35639-5) IPF % (test code = 6.5 % 1.2-10.7 Platelet count 7542776184) measured by fluorescence method. NRBC/100 WBC (test See_Comment [Automat ed code = 6743237139) message] The system which generated this result transmitted reference range : 0.0 - 10.0 /100 WBCs. The refer ence range was not u sed to interpret th is result as normal/abnormal . NRBC x10^3 (test code <0.01 See_Comment [Auto mated = 4093265397) message] The s ystem which generated this result transmitted reference range : 10*3/?L. The reference range was not used to interpret this result as normal/abnormal . SEG % (test code = 20 % 33-76 L 44337-2) BAND % (test code = 45 % 0-1 H 94544-7) META % (test code = 9 % See_Comment H [Automa dain 43515-0) message] The sy stem which generated this result transmitted reference range : <=0. The refere nce range was not u sed to interpret th is result as normal/abnormal . MYELO % (test code = 1 % See_Comment H [Autom ated 77993-7) message] The sy stem which generated this result transmitted reference range : <=0. The refere nce range was not u sed to interpret th is result as normal/abnormal . LYMPH % (test code = 20 % 14-54 56894-0) MONO % (test code = 5 % 0-4 H 78950-7) ANC (test code = 1.40 10*3/uL 1.99-6.95 L 5731742867) GOLDEN CELLS (test code 2+ See_Comment A [...] 803-7) Lab Interpretation Abnormal (test code = 31306-0) [facility] METABOLIC PANEL (NA, K, CL, CO2, GLUCOSE, BUN, CREATININE, CA)2020-04-07 09:21:00 Test Item Value Reference Range Interpretation Comments NA (test code = 137 mmol/L 135-145 5195629801) K (test code = 4.6 mmol/L 3.5-5 4417608261) CL (test code = 110 mmol/L 98-108 H 4686184389) CO2 TOTAL (test code = 17 mmol/L 23-31 L 5816246664) AGAP (test code = 2-16 1514512184) BUN (test code = 24 mg/dL 7-23 H 6206878360) GLUCOSE (test code = 132 mg/dL 70-110 H 3103224835) CREATININE (test code = 1.23 mg/dL 0.6-1.25 4397805508) CALCIUM (test code = 8.0 mg/dL 8.6-10.6 L 9062311979) eGFR Calculation mL/min/1.73m2 (Non-) (test code = 3203583253) eGFR Calculation mL/min/1.73m2 () (test code = 9533350551) GILBERTO (test code = GILBERTO) Association of [...] tests). Lab Interpretation Abnormal (test code = 29554-7) [facility]2020-[facility]-15 09:19:00 Test Item Value Reference Range Interpretation Comments MAGNESIUM (test code = 3363844791) 2.9 mg/dL 1.7-2.4 H Lab Interpretation (test code = Abnormal 56451-8) [facility]2020-04-07 04:37:00 Test Item Value Reference Range Interpretation Comments POCT GLU (test code = 9272618901) 111 mg/dL 70-110 H Lab Interpretation (test code = Abnormal 17644-8) [facility] RegionalHCV [id number] 02:35:00 Test Item Value Reference Range Interpretation Comments HCV Ab (test code = 84000-7) Negative HCV Semi-Quantitative (test code = 71959-0) [facility] + LACTIC [id number] 02:15:00 Test Item Value Reference Range Interpretation Comments PH (test code = 7.32-7.42 L 7184314192) PCO2 PANKAJ (test code = See_Comment L [Auto mated 5992926678) message] The sy stem which generated this result transmitted reference range : 41 - 51 mmHg. The reference range was not used to interpret this result as normal/abnormal . PO2 PANKAJ (test code = See_Comment HH [Autom ated 4188827238) message] The sy stem which generated this result transmitted reference range : 25 - 40 mmHg. The reference range was not used to interpret this result as normal/abnormal . HCO3 PANKAJ (test code = See_Comment L [Auto mated 7516457907) message] The sy stem which generated this result transmitted reference range : 24 - 28 mEq/L. The reference range was not used to interpret this result as normal/abnormal . AC VBE(BEAKER) (test mEq/L code = 7358039679) THB PANKAJ (test code = 11.2 g/dL 13.5-18 L 7524094274) %O2HB PANKAJ (test code = 98.7 % 52-63 H 5988367222) %COHB PANKAJ (test code = 0.3 % 0-1.5 9345786648) %METHB PANKAJ (test code = 0.1 % 0.4-1.5 L 6491990494) VOL%O2 PANKAJ (test code = 15.9 % 6-12 H 5430841776) NA (test code = 136 mmol/L 135-145 2533894002) K+ (test code = 4.2 mmol/L 3.5-5 7418776919) AC CA IONZ (test code = 4.60 mg/dL 4.5-5.3 3373193761) GLUCOSE (test code = 108 mg/dL 70-110 1089961441) LACTIC ACID (test code 2.37 mmol/L = 8871375627) Lab Interpretation Abnormal (test code = 54508-8) [facility]+COOX+NA+K+GLU+CA2+2020-04-07 01:54:00 Test Item Value Reference Range Interpretation Comments PH (test code = 2) 7.35-7.45 LL PCO2 (test code = See_Comment [Automate d message] 5337539860) The system [employer] generated this result transmit dain reference range : 35 - 45 mmHg. The reference range was not used to interpret this result as normal/abnormal . PO2 (test code = See_Comment H [Automated message] 3900178608) The system [employer] generated this result transmit dain reference range : 80 - 100 mmHg. The reference range was not used to interpret this result as normal/abnormal . HCO3 (test code = See_Comment L [Automate d message] 1552277419) The system [employer] generated this result transmit dain reference range : 22 - 26 mEq/L. The reference range was not used to interpret this result as normal/abnormal . BE (test code = See_Comment L [Automated message] 4417106594) The system [employer] generated this result transmit dain reference range : -3.0 - 3.0 mEq/ L. The reference r meredith was not used to interpret this result as normal/abnormal . THB (test code = 10.6 g/dL 13.5-18 L 5185121761) %O2HB (test code = 99.0 % 94-99 3469253932) %COHB ART (test code = 0.3 % 0-1.5 3606178721) %METHB ART (test code = 0.3 % 0.4-1.5 L 2484745162) VOL%O2 ART (test code = 15.3 % 15-23 0956809525) NA (test code = 136 mmol/L 135-145 8586695566) K+ (test code = 3.1 mmol/L 3.5-5 L 6870318322) AC CA IONZ (test code = 4.30 mg/dL 4.5-5.3 L 6644190458) GLUCOSE (test code = 113 mg/dL 70-110 H 3163435580) Lab Interpretation Abnormal (test code = 53529-4) [facility]+COOX+NA+K+GLU+CA2+2020-04-07 01:53:00 Test Item Value Reference Range Interpretation Comments PH (test code = 2) 7.35-7.45 PCO2 (test code = See_Comment L [Automate d message] 6210234871) The system [employer] generated this result transmit dain reference range : 35 - 45 mmHg. The reference range was not used to interpret this result as normal/abnormal . PO2 (test code = See_Comment H [Automated message] 2399701241) The system [employer] generated this result transmit dain reference range : 80 - 100 mmHg. The reference range was not used to interpret this result as normal/abnormal . HCO3 (test code = See_Comment L [Automate d message] 5061088601) The system [employer] generated this result transmit dain reference range : 22 - 26 mEq/L. The reference range was not used to interpret this result as normal/abnormal . BE (test code = See_Comment L [Automated message] 2313607728) The system [employer] generated this result transmit dain reference range : -3.0 - 3.0 mEq/ L. The reference r meredith was not used to interpret this result as normal/abnormal . THB (test code = 13.1 g/dL 13.5-18 L 4359564952) %O2HB (test code = 98.9 % 94-99 6251269215) %COHB ART (test code = 0.1 % 0-1.5 3900535141) %METHB ART (test code = 0.6 % 0.4-1.5 4116472450) VOL%O2 ART (test code = 19.3 % 15-23 0141960238) NA (test code = 132 mmol/L 135-145 L 7315899293) K+ (test code = 4.2 mmol/L 3.5-5 6472456775) AC CA IONZ (test code = 4.60 mg/dL 4.5-5.3 9644108632) GLUCOSE (test code = 99 mg/dL 70-110 2074711308) Lab Interpretation Abnormal (test code = 40601-3) [facility] AG-AB WITH [id number] 01:29:00 Test Item Value Reference Range Interpretation Comments HIV Negative Negative Semi-quantitative (test code = 60676-1) GILBERTO (test code = Non-reactive for HIV-1 GILBERTO) antigen and HIV-1/HIV-2 antibodies. ?No laboratory evidence of HIV infection. ?Repeat in 2-4 weeks if acute HIV infection is suspected. [facility] GLUCOSE (AUTOMATED)2020-04-07 00:40:00 Test Item Value Reference Range Interpretation Comments POCT GLU (test code = 5344695240) 100 mg/dL 70-110 Lab Interpretation (test code = Normal 36618-8) [facility] GLUCOSE (AUTOMATED)2020-04-07 00:06:00 Test Item Value Reference Range Interpretation Comments POCT GLU (test code = 3424407142) 116 mg/dL 70-110 H Lab Interpretation (test code = Abnormal 03846-8) [facility] GLUCOSE (AUTOMATED)2020-04-06 22:48:00 Test Item Value Reference Range Interpretation Comments POCT GLU (test code = 5364855237) 94 mg/dL 70-110 Lab Interpretation (test code = Normal 97047-9) [facility] 1 [id number] 21:06:45 1. Interval placement of right internal [...] reviewed this study and agree with the abovereport.[facility] WITH [id number] 20:15:00 Test Item Value Reference Range Interpretation Comments WBC (test code = See_Comment LL [Automated 6690-2) message] The sy stem which [...] RDW-SD (test code = 49.2 fL 38.5-51.6 27968-7) RDW-CV (test code = 14.7 % 12.1-15.4 788-0) PLT (test code = See_Comment L [Automated 777-3) message] The sy stem which generated this result transmitted reference range : 150 - 328 10*3/ ?L. The reference r meredith was not used to interpret this result as normal/abnormal . MPV (test code = 12.1 fL 9.8-13 46515-0) NRBC/100 WBC (test See_Comment [Automat ed code = 3331435392) message] The system which generated this result transmitted reference range : 0.0 - 10.0 /100 WBCs. The refer ence range was not u sed to interpret th is result as normal/abnormal . NRBC x10^3 (test code <0.01 See_Comment [Auto mated = 8674466921) message] The s ystem which generated this result transmitted reference range : 10*3/?L. The reference range was not used to interpret this result as normal/abnormal . SEG % (test code = 38 % 33-76 16563-9) BAND % (test code = 28 % 0-1 H 42935-5) META % (test code = 4 % See_Comment H [Automa dain 48630-1) message] The sy stem which generated this result transmitted reference range : <=0. The refere nce range was not u sed to interpret th is result as normal/abnormal . MYELO % (test code = 6 % See_Comment H [Autom ated 32966-6) message] The sy stem which generated this result transmitted reference range : <=0. The refere nce range was not u sed to interpret th is result as normal/abnormal . LYMPH % (test code = 16 % 14-54 36355-5) MONO % (test code = 8 % 0-4 H 24775-2) ANC (test code = 0.40 10*3/uL 1.99-6.95 L 3441412842) GOLDEN CELLS (test code 3+ See_Comment A [Auto mated = 7790-9) message] The sy stem which generated this result transmitted reference range : (none). The reference range was not used to interpret this result as normal/abnormal . DOHLE BODIES (test Present A code = 7792-5) Lab Interpretation Abnormal (test code = 19105-1) [facility]aP[facility]2020-[facility] 19:55:00 Test Item Value Reference Range Interpretation Comments APTT Patient (test code See_Comment H [Au tomated message] = 3173-2) The system [employer] h generated this result transmitted ref erence range: 26 - 36 Seconds. The reference range was not used to int erpret this result as normal/abnormal . Lab Interpretation (test Abnormal code = 92350-7) [facility] / [id number] 19:55:00 Test Item Value Reference Range Interpretation Comments PROTIME PATIENT (test See_Comment H [Auto mated message] code = 5964-2) The system mimoOn generated this result transmitted ref erence range: 10.1 - 1 2.6 Seconds. The reference range was not used to int erpret this result as normal/abnormal . INR (test code = 6301-6) Nor mal INR <1.1; Warfarin Therap eutic range 2.0 to 3. 0 or 2.5 to 3.5, dep ending upon the indica tions. Lab Interpretation (test Abnormal code = 85993-9) [facility] MET[facility]OLIC PANEL ([id number])2020-04-06 19:50:00 Test Item Value Reference Range Interpretation Comments NA (test code = 137 mmol/L 135-145 7293204146) K (test code = 3.6 mmol/L 3.5-5 3767117185) CL (test code = 109 mmol/L 98-108 H 4726618720) CO2 TOTAL (test code = 18 mmol/L 23-31 L 6638464100) AGAP (test code = 2-16 3987318669) BUN (test code = 27 mg/dL 7-23 H 6032853922) GLUCOSE (test code = 91 mg/dL 70-110 1290701708) CREATININE (test code = 1.38 mg/dL 0.6-1.25 H 8687194460) TOTAL BILI (test code = 1.0 mg/dL 0.1-1.6 9744320913) CALCIUM (test code = 8.0 mg/dL 8.6-10.6 L 2844345836) T PROTEIN (test code = 4.3 g/dL 6.3-8.2 L 4098492649) ALBUMIN (test code = 2.7 g/dL 3.5-5 L 4978953501) ALK PHOS (test code = <20 34-122 L 8207167107) ALTv (test code = 9 U/L 5-50 1742-6) AST(SGOT) (test code = 21 U/L 13-40 6914682493) eGFR Calculation mL/min/1.73m2 (Non-) (test code = 1768632192) eGFR Calculation mL/min/1.73m2 () (test code = 6966471526) GILBERTO (test code = GILBERTO) Association of [...] tests). Lab Interpretation Abnormal (test code = 94062-3) [facility]OL[facility] (NA, K, CL, CO2, GLUCOSE, BUN, CREATININE, CA)2020-04-06 19:50:00 Test Item Value Reference Range Interpretation Comments NA (test code = 137 mmol/L 135-145 5220069300) K (test code = 3.6 mmol/L 3.5-5 2595996151) CL (test code = 109 mmol/L 98-108 H 4843019579) CO2 TOTAL (test code = 18 mmol/L 23-31 L 2903783661) AGAP (test code = 2-16 6289263374) BUN (test code = 27 mg/dL 7-23 H 0322698515) GLUCOSE (test code = 91 mg/dL 70-110 9804331466) CREATININE (test code = 1.38 mg/dL 0.6-1.25 H 0197823486) CALCIUM (test code = 8.0 mg/dL 8.6-10.6 L 7811385458) eGFR Calculation mL/min/1.73m2 (Non-) (test code = 1169019119) eGFR Calculation mL/min/1.73m2 () (test code = 7818245635) GILBERTO (test code = GILBERTO) Association of [...] tests). Lab Interpretation Abnormal (test code = 41859-7) [facility]2020-08-14 19:44:00 Test Item Value Reference Range Interpretation Comments MAGNESIUM (test code = 2388901245) 1.7 mg/dL 1.7-2.4 Lab Interpretation (test code = Normal 04838-6) [facility] PAN[facility] 21 + LACTIC [id number] 19:25:00 Test Item Value Reference Range Interpretation Comments PH (test code = 7.32-7.42 L 7632193337) PCO2 PANKAJ (test code = See_Comment L [Auto mated 0165332357) message] The sy stem which generated this result transmitted reference range : 41 - 51 mmHg. The reference range was not used to interpret this result as normal/abnormal . PO2 PANKAJ (test code = See_Comment H [Autom ated 1440168852) message] The sy stem which generated this result transmitted reference range : 25 - 40 mmHg. The reference range was not used to interpret this result as normal/abnormal . HCO3 PANKAJ (test code = See_Comment L [Auto mated 6659061705) message] The sy stem which generated this result transmitted reference range : 24 - 28 mEq/L. The reference range was not used to interpret this result as normal/abnormal . AC VBE(BEAKER) (test mEq/L code = 6967286591) THB PANKAJ (test code = 10.1 g/dL 13.5-18 L 8242403374) %O2HB PANKAJ (test code = 84.0 % 52-63 H 9355506147) %COHB APNKAJ (test code = 0.6 % 0-1.5 2926177230) %METHB PANKAJ (test code = 0.3 % 0.4-1.5 L 5870179729) VOL%O2 PANKAJ (test code = 12.0 % 6-12 9680735023) NA (test code = 135 mmol/L 135-145 4884426948) K+ (test code = 3.5 mmol/L 3.5-5 2410059401) AC CA IONZ (test code = 4.50 mg/dL 4.5-5.3 7173042118) GLUCOSE (test code = 87 mg/dL 70-110 6382690417) LACTIC ACID (test code 3.34 mmol/L = 3376867428) Lab Interpretation Abnormal (test code = 33964-2) [facility] 20 + LACTIC [id number] 19:19:00 Test Item Value Reference Range Interpretation Comments PH (test code = 2) 7.35-7.45 L PCO2 (test code = See_Comment L [Automate d 5907946366) message] The sy stem which generated this result transmitted reference range : 35 - 45 mmHg. The reference range was not used to interpret this result as normal/abnormal . PO2 (test code = See_Comment H [Automated 7907503138) message] The sy stem which generated this result transmitted reference range : 80 - 100 mmHg. The reference range was not used to interpret this result as normal/abnormal . HCO3 (test code = See_Comment L [Automate d 1194103690) message] The sy stem which generated this result transmitted reference range : 22 - 26 mEq/L. The reference range was not used to interpret this result as normal/abnormal . BE (test code = See_Comment L [Automated 3752823364) message] The sy stem which generated this result transmitted reference range : -3.0 - 3.0 mEq/ L. The reference r meredith was not used to interpret this result as normal/abnormal . THB (test code = 10.4 g/dL 13.5-18 L 9742728994) %O2HB (test code = 98.3 % 94-99 9226978705) %COHB ART (test code = 0.3 % 0-1.5 5670075422) %METHB ART (test code = 0.3 % 0.4-1.5 L 3314997814) VOL%O2 ART (test code = 14.8 % 15-23 L 3810252457) NA (test code = 135 mmol/L 135-145 7787706256) K+ (test code = 3.5 mmol/L 3.5-5 1128210383) AC CA IONZ (test code = 4.50 mg/dL 4.5-5.3 9065653916) GLUCOSE (test code = 96 mg/dL 70-110 2781024587) LACTIC ACID (test code 2.95 mmol/L = 5617544296) Lab Interpretation Abnormal (test code = 36949-8) [facility] [id number] 16:51:00 Test Item Value Reference Range Interpretation Comments Case Report (test code Surgical Pathology ? ? = [id number]) ?Case: [id number] ? Authorizing Provider: ?Bia Pedro MD ?Collected: ? 04/03/2020 1513 ?Ordering Location: ? ? [facility] OR ? Received: ?04/03/2020 1657 ? Department ? Pathologist: ? Nimisha Galloway, PHD ?Specimens: ? A) - COLON, total abdominal colectomy ? B) - COLON, donuts x2 ? Final Diagnosis (test x5hayANjVLXla5vhUAVvqT code = 4527928995) FuZzEwMzNcZnRuYmpcdWMx IHvblqLdOXqlv4BbI7JpCt AwMFxhbnNpXGRlZmxhbmcx MGMlTBP3mfRqTWUgSEcbFU FyGDtkLi4bkQNueRbwStLz CXLpz7oontYMeyeztNc7l2 qiRQAwXbD0eQDpTVccW8dc qoTjjSLzMCWwYKv0yQ22TT CbtV1boHZmXXnihkIgJCcn mlOqkhHqPhn6UJLwK3fzWP FoUOFrS0RxCA4nIGFtRrf0 NRY1TXN5kQxqr2L9aLFawB OqcAosNjVtMdUjSRTZj8Dd VWu9bPlqQ2SwZQNqZhB2tI QgUGFyYWdyYXBoIEZvbnQ7 fMccR6WcUTTfMpY5rORyXF AqZMcqIDZpZw0naAy7cNwl LpotEGD5Vfk2TC1qrc22pl m0qDceXMUqgmonYfH6YSaw ILYzrklpDGw2MMioPQKdtK ExNETkcVVxS3VjVBpmVJ1q liw2UwMpGU5dqhsgAUcxAM OqWKO6HrJuDMEvq7Crwyiv NcZzwc0zuf16FAS0p0IglN ekURJ0FDW7CgAvAi0hnBEa AQYlDN8tJsTpbSGmLLNnml 43xTlxVRaslrHkdO1kPeGi JFZnpSGuJISnQC5kaKWqCX ZvwP5qoaolPWQdDmBljowd IZAkmCfrnyMeId1avMkvGY Q5LTpoM0uchA8cPoC3KFyy F2ydlP6uTVx0UMluaQR8DP NjyF7nLS6ursjfh8liBZG2 AHpkHDNumnZ8xyEhUKFfmF QbA4QveF85CbFlvNZiY3Zq cZ5fRPkvCVJkcxb6RzTwDa 9ifUAsyOF5FUguMrepSVqh XHBnbmNvbnRccGduZGVjXH BsYWluXHBsYWluXGYwXGZz LhSqwTwrvKkguF4xYfRyCj MyMFxwbGFpblxmMVxmczIw VSLgjcJNQhVTE1oCEsndJK 3YKHgfZwTKQOMRHJ8KDgxg BUGgFJVrUK4yQpFKX0GCSI SgC33TB2BQAVdUCmJHGPHR ZDQPOu4YZ09YQAJVTQ1FRa WQBOyIFOBXQ30EVSVMGZLG HnFUDRHWSMOXM8sDBEdqAU NiSNEfYANtT7PHBQLBA5KJ A71fHITginUpNSIhOABHLY tHJAHYGQKJWZHPP8KGVB2L IG7ISNcNJUCeP0bCCGICCG GuT74LI92MIlSWDlRXIGjU FTGLNAKCDO6KKFxANyDVWV sZUrsRAHERY8ALYYAbnDWq CFZyDGJhBX6PD2DZFVFQOV 9OXHBhciAgICAgLSBOTyBF FmaEDA1ORXDSQpFRRTZPI4 YQKQ3KW4FYZ4hIUNsoDPBs ZKBeUX2oHF2YSKTZYcVZGU BTRVNTSUxFIFNFUlJBVEVE SUUKBW4UQLChvLAoGLYnSK AtIFJFQUNUSVZFIExZTVBI PP2PSOUYNJTphhZtJMXlIL XYHLULCIYrLyBGFHBVLV4W NY4AGijDDgTkvTQtCXYnre xwbGFpblxmMVxmczIyXGxh moiwEUPuOZydO4llWwFpNF KsgGajOGptg2OmFZOgTSUs IIhtgwGbQXVkl7tlFCDjXg L1rNVkALJMHvMKFaRaTL8c YB9uNVQqHWPxWZunDgGKVA xwbGFpblxmMVxmczIwXHBh plkgEIQ3e9lbeHAjAJZqzO AdHoIzKDMlFIGpd7xxWATj bGFuZzEwMzNcZnRuYmpcdW ZnQHNuKzZzs8mku696qAJn r5awDTXzAvF7mZXjYMIeiY ztzti6nWdwRqYnONMsq8ll cyBcZmNoYXJzZXQwIEFyaW JhU899BXYjDGjni2fxi1No WNTfxLXcc6H2TTZZRUgyGk CpZ806d3zxl2pvhaQgdEW0 IGKkEXO8ITdaonRenzR6NK nzfXRdOoR7VWipfaRuZEan jbDqoiOnZye8PQEbR220CG W1uIfbr0olONU9KOJcDGZe SnefGx6srZLdQ459ZJNaKA IKHBBkyPk6HRXxngUekgUg hKEHn802M230z4hqTOIfga RviBbPkmqki5uqX779IGPz cGVydzEyMjQwXHBhcGVyaD L9SYQgUI7npknjHCjqLOmc MIGrraK1JDDjmREsR3AnQD DlDI2egetjJDS7FMfaQDDu HTD1NfArHTJfb1Abbew7Kz Fyju6cev03GXV1q8MfbBft FBV0BNL1YdPpBv7ysZLeOP LzIT6qPfXfeNDlNLJfny67 iZcsDLjtzuQcyE0qIbXxDP RsoKYeKCVcZP3cvZXwILZf qZ7oinjvRPMtEuRftxssEF QtnBrqykSaBq0whHedQHA0 RGmrH5uppO5bPeS6YTgdI0 gqhC3sYJu0FJojgBW1ENWn yK6jMW2eloktm9avAKthUG vdEGAryjD4otL2AOLxpNLa I3OshP4dNWSdSK0vitwnf4 xoDXV8DCpfOJOkLRV9UwZx NGZfg6Ftzom6IqNda6EzkB TeKOjnU38bz221BICexmIn M3srgTLmsnsbxZWszecuTC ewqvM2UTEsWPDlFExkYOWr XGZzMjBcbGFuZzEwMzNcaG ljaFxmMVxkYmNoXGYxXGxv Z0gyOrTkW3IuZVUpCeZrzO RaDRlbwUI7FLQkNRGuw99x zMa3WYHeaochq3FeLMWvzO XpiMAreO0atrRaf2enYYEx JKAqXJOdB3ZxPBN2gOOaDG HbcAXnfLZ6EB5hhmZtJH8n ZGUgYnkgcmVzaWRlbnRzLC PwMPmnb6tpRY8cXYQnjAay wV1mcMI6EUMks1ordXVhmT Ibi0jwl0ShusNpPFkeDXCv NWhyNMDhAKFuKY9qIMWgdY CucfVzd4Z0XdntqONrrqwo ZqmlrwC8AShttcabABObBJ hwK6tiZuQeWBEbnUomRrlr r1EcERDlNPJwHzqhaKCsuR 0= Clinical Information Large bowel (test code = obstruction [K56.609] 0984509816) Gross Description (test r9tcmQMkRHGaaNTrNaGxIU code = 1118599057) HvFHVbl5fiFGDojSCyZlYr MzNcZnRuYmpcdWMxXGRlZm Nym8syz518hGZeb1gvWJWf UxJ0kTOeYFPwjIGsQ164GK QdMPfcw4gmp9GkEVWwlKCa p5G6ZCKLexdszHb3uAqhZ7 4lu2O4FfshV4ghQTDoKCew GQUaQWmzbEEaVTA0VPDlWF K0UCnfitBymbY2QQsimHNe QcA8QTj8x1upxWgiPXQwLY H6a7vuBKickqGbBP1nzm9t eRk4t2nyxiRxNLHoYENsiS AEALDzO2AcsNbvFb6aaHn7 bDijGgffMOB7Wfd1UT7xyp 90tvy8lUleUBXwqkauMgP5 MOgsEIGuxxqbXEe5CRgiAP CpeNNhCMZybMHbG8CjWTjo ZU3zzjk1IlWhPK6fsuutBK qmVVYsJCU1IiLjCVJaj4Xt uzkgYgDzek9xbw24UAX0d6 SmhSycNVU1JFX5FuAyMv1r bRGfTVYzCS9gRzHzqASaCR Bptj36mHivTYcbtkPceS1n MdBlACZsrCOtZEBlDZ3ldA ThOEWxvO8xjintYQJoFgYa vjfaHEQjnAuopeBmZc6dvO xjZYZ4QMwcK3baaZ7cAhD5 MFwcS3kdnE9wSLg2WTbkpD F9LATllC9pCV0qqleih9lw PCF1YPmaTCFwvqG4kxAjWJ WshFSrV5BqtZ70XhVmoUGf S5IfaI6dOAynTPTzyen5Iq YeVg8saQXhgFI6PXztYnpm YWdlXHBnbmNvbnRccGduZG VjXHBsYWluXHBsYWluXGYw SQDdBcWrxXlxeEfqbW3zZh BcZnMyMFxwbGFpblxmMVxm czIwIFNwZWNpbWVuIEEgaX JcrpGnQFa7KYDrSnFur0aj qAYxUTpnRWGti8z7mEC8uB KjkDV4gFCsmPnjQW8ixMOy BVAGXO84gRJbnjMgJ64by3 3vGJCjgMQjZLGaLO5jlB3e ePHjx5dbU0WarYtwDQMazb ZqA92fi5fbmLEry5ErYVQ3 q3FtlTTee6qlD3RnhMqhv5 WtC2lkUL4zGWblIsAmB63r jD0aoTAtA4DkSWelUO8cCT EqNnVzM63vcX5uKKbuxDS0 ZTZhWHybsAooGYX5KXYnVI SfmBYhpZpuGIwmgZpllP9b CRUzQXBpmDLqfeGpDX3loR jyxZV0YkNlW57jRObqpON2 MZTrEKL2yFFyOL0zYTidt3 NzbHkgaWRlbnRpZmlhYmxl FPWmsZCdCMe9YgUSuZEes1 Dtq9QeUQwgUEGfsu9lXHBd SW9lBCPxd460aCF9oJLzVB RviFS4VCBkqoRzb4Oquq3v VGhlIHNwZWNpbWVuIGlzIG 1pOH0aDGIchI3aUkBzaYWl PY61sJ3mc5BsyIStgWXhDv 9yZGVyLiBUaGVyZSBpcyBh TCUdrwD2zJHopwWrxOxgaC G0PGslLFprWWxjUXSnJ5Et WQPxp34jRLCxcmD7eC85ve OijJTqUOV2LCTuBLFwfALi BvRmY39nQnTpqNN5iSBvZC ivmNTlII4winbylgRlneIb GNJgE64tCtOuaDM6tJUccJ MbqBaxLNkprWLlT6omJzQG cf46iG8icLS9grT6oBXmfW MhfyyfpLCkqQJsZP36lI3k HXElv8JlQ0yxVAoyu3Hblb J8cSReZh99LOodkIXuMMqw dGVuZGVkIGZvciBhIGxlbm x1nUMyKlDdFN5rJTAtBbVO sJLzvE5idKyyGHBla2Hpex HqHSYrYGrgl75edZcgGJ05 W48qJWWhevJom1YfxMi4OS WgXUE2HQ8dGYhjZ2TambAd YXIsIHdpdGggYXJlYXMgb2 MpU00rIausv2WhkmZnMSQn FXElWY9nWJUgyoPjC8vmUl Lldj9gGEPjKT3iMv16MSXv OV1hZWmoDBgkbIdcr6GuoI yyPOAcj4OnqqZnOCVeOItp c97iaVUlpCjeI4lumnKjQH RjGROvgOMeRNL4XPkvPQ9c vH9eOMKpf20rQI2bUEMeBu XuvOesFXErKIVeST1jjD5e pwuhmWKwd3XxDK6fBZMyUZ Cfb7mtupJessZ1LJ0xlVjg xdDhtmRydLvuSOFid2BibZ ShDFXnmO4kNUAuBLZeurQo tv4kp9h4NQVyFRDzLN4rZA VaeFeeSBicYD1oODZdqZXk yW3zpSpxibO4wKLzVZWvxe BhbiBhZGRpdGlvbmFsIHdl sCsyfDWxqZFgEZQ1zcasZ1 PcRJRkFGHiGTBao9UbnTJ4 bvR2pUUfmPiel9PgT8ReHQ s0osN9fD2aFOGyVLYnMKlo LDMlhQ0yz6dugXLlyStlk7 QkC3EjFBBuxGQcZVrzyFwq VD2fMKI0DWWpLNVmx3DvbH MmuONuCcFmcfHgi1TqonIn YPRrTKXxmCIhkfYvTV5luQ byBatoMM14VXUsAEmqCDIx QW0lnNPmNMQ2gFDrZFPkj7 RhvNVyRXKuYRAgq1RrfVzn IGxpbmUgYXQgdGhlIGJsaW 0jYELaAZtnd1Ucfg60ufDt NKVolZGmkQUvJ7ceNTXyFU kln0NoWGIxq1X6AW8dZAoe IHJlbWFpbmluZyBtdWNvc2 Pyi6GbbEujZAjyKBHgZKvf NMEiWxZ3y5QjmTSykECqbX BhbmQgdGhlIHZpYWJpbGl0 oFFaBzC0aBMiaxNyMGX7iP 2wNS6shxtujjHfLZ3gt4Pf RxPeZ7Mlb1OzpWHfYVUuig 1pbmVkLiBUaGUgcGVyaWNv cP6gbNDhWFNsjC5zMPR5mQ XwsYTzsFRisLHasYK6DRXv Wm1fVPQxlY8tv2wrgLRobP mnyVofar8hCIYmVAJwnhvi yexpSeBdcLXcZbBpWX89YU UfIJxoJQqbOSL2WCF3WWLs zLWzn0wwssocVUUmsONgs5 OpwCU6kBWmREUeH8Kot93j SHKvJKCpdNExoZZ5ZIVmaE 4gQTEtQTEwLlxwYXJccGFy VAAaG9Yqr89kW58sIGqscO BkKSNtQdMSbb05lI7pzYHl KMQpF6Auh99krVLxN0ufWG BlbiBmYWNlLCByZXByZXNl avRkaBb2UHqtLLHfXWN4QO Efu9JugNVrPIEqS8Rbz00p rBYrH7qlYUIvunShMJGyLF TfEBZxSJLadsYlxOt7VIjk DPCiVKT8PHpvRB0fGWQevD ZrxD4lgOblzmF0vTToTTL8 cehbE9LeOGSiXOYgKSYzfO Hui8KbrRO4aIQjKHCgfuYY SYbmPgMrztHiBI07BQDxhl Pcg0JrcPeqeiHwf1KfeBIk f2TyFSUoNWD8KGviUTKex7 hpbWFsIHRvIHRoZSBkaXN0 TA5lZIWpMPUrIRoaJJThYV QfYTH5XYQtlQSpy0YpkGC5 qAGjYLEhJ1Bcp77jCA4oTY 43U24zRUCjboJrn7UltDNn km0tZQXgKTLtrVV0QD7yWP YeMTUtNRwbMLOkJYo5JUMb VFQef3AxAJZ6lruyF3SeHK NjYXIgZGlzdGFsIHRvIGRp i9LxlfWtNMUbjmYwWJZlPK RqZZVtaeQqbXe4AOegGSTd JKt4TGRaePEbn1OqvGC8nM AfWDAcD6Wiq69xLH1hGG22 E23gYSYkdaWre4WrtHVzuN U9RAgmuZ2lgFwiYQNwp6Ny bmRlZCBhcmVhXHBhciBBOT eqTH0zq8ipeZDupYmpo5Kf T4MaZPTcuGJpDQAsQFPwMN WqcmSsrMs4FUncRQYnIXTh MxWWll5bnuEaOSG7eD7kHK 9mIGludGVzdGluZSBhdHRh U6dgWAJ9xaMqf4DmmZRuQQ EwfCSrP3VtRGgfgnGllaFs KRIrpRPas9FlyOT5aZVlBY PxtzKJZXE2NSTugB1ht8he eXXgtPjiqBimtk2rQCUrLK rsk0iqWGvbSGXfkALhRGDe jeXngYloqE3bVaGnBiHyPG xwbGFpblxmMVxmczIwIFNw ZWNpbWVuIEIgaXMgcmVjZW r9KMNyFlVeo3itmAFfRMob TXU5oZNwPOMnGBDzFQDkQX 72L0NmajHdXRsjXRgmouYo KcBfJYCuo6doavvfCR1kvO YnIZnaGHxpTearRV7mQNHo kjWdj2FoTZ8kDVZeRZ5em7 GhpB1peS7aSREpszQ2viEf FD08CHhxGK73OHakZB15RB NtIGFuZCAyLjUgeCAxLjkg qSZmCiulB92jEoHSy1SfPM NmfmZ3ubApfxSvQbguOBU5 FWToDBEpKFJduSFkjJ3npz NsrcGzfCPqoBN6XNHuZB24 hSDeuYqxXX3kYoSyQDHvll HIYZ3IByysfPGaV5UaAPMi igC1LLvnCXFkCTRxNDRgMG BzbWFsbGVyIGRvdWdobnV0 IGluIEIzLiBccGFyXHBhci AFFQM0MZGlfnWykAgeDQKA DDYiPUVvY0N5NQZwtNilYH ZlFND3kfAdHYXsB4BdKSZI SDDAC8HjHRYsKSwzUPTmLI ZzMTZcbGFuZzEwMzNcaGlj aFxmMVxkYmNoXGYxXGxvY2 jxIkEfX5ZzOHMiETCxM73g lHmczJ6bKvWkEhVlKRilPK ZkcJblwLdtcT6hPcAzXsUe MFxwbGFpblxmMVxmczIwXH Bhcn0= Embedded Images (test code = [id number]) [facility] 16:04:Ana Ahn MD ? ? 04/06/2020 11:06 AMIntubationUrgency: emergent Difficult airway General Information and Staff Patient location during procedure: ORAnesthesiologist: Cynthia Herring MDResident/DIGITAL RETOUCHER: Dana Sampson DOPerformed: anesthesiologist and resident/DIGITAL RETOUCHER Indications and Patient ConditionIndications for airway management: [...] from glidescope to advance tube into airway. [facility] 16:04:Ana Ahn MD ? ? 04/08/2020 ?5:11 AMIntubationUrgency: emergent Difficult airway General Information and Staff Patient location during procedure: ORAnesthesiologist: Cynthia Herring MDResident/DIGITAL RETOUCHER: Dana Sampson DOPerformed: anesthesiologist and resident/DIGITAL RETOUCHER Indications and Patient ConditionIndications for airway management: [...] glidescope to advance tube into airway. Additional OjryrvkhS3a on VL by CA1, multiple attempts by CA1 with ETT with stylet and bougie, unable to pass ETT through glottis. BVM between attempts. Glidescope stylet with ETT used by faculty under VL, attempt x 1 by faculty, g1v, atraumatic.[facility]XR [id number] 15:42:20 Large volume pneumoperitoneum. Continued gaseous distention and dilatation of the stomach and smallbowelfollowing total colectomy with ileoanal anastomosis may representpostoperative ileus. Findings regarding pneumoperitoneum were already communicated to [facility]. Preliminary Report Dictated by Resident: Bart De La Torre I reviewed this study and agree. I, Weston Wu MD., have reviewed this study [...] small bowel and issimilar to prior radiographs. [place] project over the midline in the lowerabdomen. [facility], Radiant Results Inft User - 04/06/2020 10:43 [...] small bowel and issimilar to prior radiographs. [place] project over the midline in the lowerabdomen.IMPRESSIONLarge volume pneumoperitoneum.Continued gaseous distention and dilatation of the stomach and small bowelfollowing total colectomy with ileoanal anastomosis may representpostoperative ileus.Findings regarding pneumoperitoneum were already communicated to [facility].Preliminary Report Dictated by Resident: Bart Klein reviewed this study and agree.Weston Damon MD., have reviewed this study andagree with theabove report. [facility] - ONCE [id number] 15:18:48 Test Item Value Reference Range Interpretation Comments ABO & RH (test code O POSITIVE Performe d at [facility] = 20) Laboratory Serv [facility] [address] [facility] s [id number] Free: [phone] A No. [id number] IAT (test code = Negative Performed a t [facility] 1185) Laboratory Serv [facility] [address] [place] [address] s [id number] Free: [phone] A No. [id number] [facility] CHEST 1 [id number] 15:09:51 1. 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 FINDINGS: Lines/tubes: Enteric tube c ourses over the midline and inferiorly beyondthe diaphragm and [id number]. Left diaphragm is elevated with interval development of large amount offree air noted under the diaphragms, better seen on concomitant abdominalx-ray. Lungs are clear without focal consolidation, pleural effusion orpneumothorax. The cardiomediastinal silhouette is stable. ?No acute osseousabnormalities. 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 Left diaphragm is elevated with interval development [...] have reviewed this study and agree with theabovereport.[facility] [id number] 14:52:37Ana Syed MD ? ? 04/06/2020 ?9:53 [...] tolerated procedure well with no complications ? [facility] [id number] 14:52:37Ana Syed MD ? ? 04/06/2020 ?9:53 [...] tolerated procedure well with no complications ? [facility] [id number] 14:51:44Ana Syed MD ? ? 04/06/2020 ?9:52 AM Arterial Line Date/Time: 04/06/2020 9:21 AMPerformed by: Ana Syed MD Arterial Line Placement: ?Ultrasound-Guided: ultrasound guided ? ?Patient Location: ?OR ?Indication: continuous blood pressure monitoring and blood sampling needed ?Staff: ?Supervising Anesthesiologist: ?Cynthia Herring MD ?Resident: ?Ana Syed [facility]: ?Catheter Size: ?20 gauge ?Catheter Length: ?1 and 3/4 inch ?Catheter Type: ?Arrow ?Seldinger Technique?: No ? ?Laterality: ?Right ?Site: ?Radial artery ?Line Secured: ?Biopatch, Tegaderm andtape ?Preparation: ?Chloroprep, drape, sterile gloves, guidewire removed intact and biopatch appliedEvents: ?Events: ?Patient tolerated procedure well with no complications and all wires accounted for _ [facility] [id number] 14:51:44Ana Syed MD ? ? 04/06/2020 ?9:52 [...] complications and all wires accounted for _ [facility] WITH [id number] 13:22:00 Test Item Value Reference Range Interpretation Comments WBC (test code = See_Comment LL [Automated 5190-2) message] The system which generated this result transmitted reference range : 4.20 - 10.70 10*3/?L. The reference range was not used to interpret this result as normal/abnormal . RBC (test code = See_Comment [Automated 269-8) message] The system which generated this result transmitted reference range : 4.26 - 5.52 10*6/?L. The reference range was not used to interpret this result as normal/abnormal . HGB (test code = 13.3 g/dL 12.2-16.4 468-7) HCT (test code = 41.4 % 38.4-49.3 4544-3) MCV (test code = 89.8 fL 81.7-95.6 787-2) MCH (test code = 28.9 pg 26.1-32.7 785-6) MCHC (test code = 32.1 g/dL 31.2-35 786-4) RDW-SD (test code = 47.8 fL 38.5-51.6 30989-7) RDW-CV (test code = 14.6 % 12.1-15.4 788-0) PLT (test code = See_Comment [Automated 777-3) message] The system which generated this result transmitted reference range : 150 - 328 10*3/?L. The reference range was not used to interpret this result as normal/abnormal . MPV (test code = 12.1 fL 9.8-13 55077-5) NRBC/100 WBC (test See_Comment [Automat ed code = 5703035048) message] The system which generated this result transmitted reference range : 0.0 - 10.0 /100 WBCs. The reference range was not used to interpret this result as normal/abnormal . NRBC x10^3 (test code <0.01 See_Comment [Auto mated = 4314769653) message] The system which generated this result transmitted reference range : 10*3/?L. The reference range was not used to interpret this result as normal/abnormal . GRAN MAT (NEUT) % 71.6 % (test code = 770-8) IMM GRAN % (test code 0.90 % = 7056265607) LYMPH % (test code = 18.3 % 736-9) MONO % (test code = 9.2 % 5905-5) EOS % (test code = 0.0 % 713-8) BASO % (test code = 0.0 % 706-2) GRAN MAT x10^3(ANC) 0.78 10*3/uL 1.99-6.95 L (test code = 0764243498) IMM GRAN x10^3 (test <0.03 0-0.06 code = 3827773168) LYMPH x10^3 (test 0.20 10*3/uL 1.09-3.23 L code = 731-0) MONO x10^3 (test code 0.10 10*3/uL 0.36-1.02 L = 742-7) EOS x10^3 (test code <0.03 0.06-0.53 L = 711-2) BASO x10^3 (test code <0.03 0.01-0.09 = 704-7) GOLDEN CELLS (test code 2+ See_Comment A [Auto mated = 1790-9) message] The system which generated this result transmitted reference range : (none). The reference range was not used to interpret this result as normal/abnormal . BANDS (test code = MARKED INCREASED A 5950863844) Lab Interpretation Abnormal (test code = 26918-3) [facility] METABOLIC PANEL (NA, K, CL, CO2, GLUCOSE, BUN, CREATININE, CA)2020-04-06 12:38:00 Test Item Value Reference Range Interpretation Comments NA (test code = 134 mmol/L 135-145 L 1852535606) K (test code = 4.5 mmol/L 3.5-5 1349829277) CL (test code = 105 mmol/L 98-108 6388463454) CO2 TOTAL (test code = 18 mmol/L 23-31 L 1940553674) AGAP (test code = 2-16 3462675638) BUN (test code = 30 mg/dL 7-23 H 1318889732) GLUCOSE (test code = 117 mg/dL 70-110 H 2696489043) CREATININE (test code = 1.95 mg/dL 0.6-1.25 H 0556755823) CALCIUM (test code = 8.6 mg/dL 8.6-10.6 8481004644) eGFR Calculation mL/min/1.73m2 (Non-) (test code = 6885635702) eGFR Calculation mL/min/1.73m2 () (test code = 8574890963) GILBERTO (test code = GILBERTO) Association of [...] tests). Lab Interpretation Abnormal (test code = 49052-7) [facility]2020-08-14 12:38:00 Test Item Value Reference Range Interpretation Comments MAGNESIUM (test code = 3925771068) 2.3 mg/dL 1.7-2.4 Lab Interpretation (test code = Normal 36845-8) [facility] [id number] 23:28:32 Prominent gaseous distention of small bowel [...] pelvis. Note: Left hemidiaphragm isnot fully within vnwlj-ku-wfrw. FINDINGS: Status post colectomy. Massive gaseous distention [...] and pelvis.Note: Left hemidiaphragm isnot fully within thzfg-uf-xflm.FINDINGS:Status post colectomy.Massive gaseous distention of the stomach [...] this study and agree with theabove report. [facility] [id number] 23:22:45 Esophogastric tube tip projects over the stomach fundus. Redemonstration of extensive small bowel dilatation in the recentpostoperative setting status post total colectomy with ileoanalanastomosis. Findings may represent severe ileus. Correlate clinically. Preliminary Report Dictated by Resident: Louis Donnelly MD., have reviewed this study and agree with theabove report.EXAM: XRKUB HISTORY: post ngt placement COMPARISON: KUB 04/05/2020 Technique: Single AP view of the upper abdomen. Note: Bilateralhemidiaphragms and upper abdomen are not within vkvmo-yr-wyrv. FINDINGS: The tipof the esophogastric tube projects [...] Bilateralhemidiaphragms and upper abdomen are not within vgnbi-fq-vsux.FINDINGS:The tip of the esophogastric tube projects over [...] reviewed this study and agree with theabove report.[facility]OL[facility] (NA, K, CL, CO2, GLUCOSE, BUN, CREATININE, CA)2020-04-05 11:08:00 Test Item Value Reference Range Interpretation Comments NA (test code = 137 mmol/L 135-145 9013261636) K (test code = 4.4 mmol/L 3.5-5 2008044084) CL (test code = 104 mmol/L 98-108 2184834563) CO2 TOTAL (test code = 24 mmol/L 23-31 8446654939) AGAP (test code = 2-16 1558112184) BUN (test code = 10 mg/dL 7-23 8934772254) GLUCOSE (test code = 104 mg/dL 70-110 5815129954) CREATININE (test code 1.18 mg/dL 0.6-1.25 = 1415836226) CALCIUM (test code = 8.7 mg/dL 8.6-10.6 9603377709) eGFR Calculation mL/min/1.73m2 (Non-) (test code = 7001675404) eGFR Calculation mL/min/1.73m2 () (test code = 4366823437) GILBERTO (test code = GILBERTO) Association of [...] or urine or abnormalities in imaging tests). [facility]2020-08-13 11:08:00 Test Item Value Reference Range Interpretation Comments MAGNESIUM (test code = 5268690716) 2.3 mg/dL 1.7-2.4 Lab Interpretation (test code = Normal 68237-0) [facility] WITH [id number] 10:32:00 Test Item Value Reference Range Interpretation [...] RDW-SD (test code = 47.8 fL 38.5-51.6 38287-1) RDW-CV (test code = 14.6 % 12.1-15.4 788-0) PLT (test code = See_Comment [Automated 777-3) message] The sy stem which generated this result transmitted reference range : 150 - 328 10*3/ ?L. The reference r meredith was not used to interpret this result as normal/abnormal . MPV (test code = 11.6 fL 9.8-13 12937-7) NRBC/100 WBC (test See_Comment [Automat ed code = 2615531997) message] The system which generated this result transmitted reference range : 0.0 - 10.0 /100 WBCs. The refer ence range was not u sed to interpret th is result as normal/abnormal . NRBC x10^3 (test code <0.01 See_Comment [Auto mated = 9472486226) message] The s ystem which generated this result transmitted reference range : 10*3/?L. The reference range was not used to interpret this result as normal/abnormal . GRAN MAT (NEUT) % 82.4 % (test code = 770-8) IMM GRAN % (test code 0.30 % = 0623795343) LYMPH % (test code = 12.4 % 736-9) MONO % (test code = 4.5 % 5905-5) EOS % (test code = 0.2 % 713-8) BASO % (test code = 0.2 % 706-2) GRAN MAT x10^3(ANC) 5.12 10*3/uL 1.99-6.95 (test code = 9572934911) IMM GRAN x10^3 (test <0.03 0-0.06 code = 5600042577) LYMPH x10^3 (test code 0.77 10*3/uL 1.09-3.23 L = 731-0) MONO x10^3 (test code 0.28 10*3/uL 0.36-1.02 L = 742-7) EOS x10^3 (test code = <0.03 0.06-0.53 L 711-2) BASO x10^3 (test code <0.03 0.01-0.09 = 704-7) Lab Interpretation Abnormal (test code = 45781-1) [facility] METABOLIC PANEL (NA, K, CL, CO2, GLUCOSE, BUN, CREATININE, CA)2020-04-04 11:02:00 Test Item Value Reference Range Interpretation Comments NA (test code = 135 mmol/L 135-145 5185990237) K (test code = 4.4 mmol/L 3.5-5 Slight 1535450168) hemolysis CL (test code = 103 mmol/L 98-108 9913647410) CO2 TOTAL (test code 26 mmol/L 23-31 = 3413926199) AGAP (test code = 2-16 7239424758) BUN (test code = 7 mg/dL 7-23 Slight 9287607197) hemolysis GLUCOSE (test code = 119 mg/dL 70-110 H 0997898532) CREATININE (test code 0.95 mg/dL 0.6-1.25 = 1945345695) CALCIUM (test code = 8.3 mg/dL 8.6-10.6 L 8332882876) eGFR Calculation mL/min/1.73m2 (Non-) (test code = 5635733101) eGFR Calculation mL/min/1.73m2 () (test code = 9330408114) GILBERTO (test code = GILBERTO) Association of [...] tests). Lab Interpretation Abnormal (test code = 04950-5) [facility]2020-08-12 11:02:00 Test Item Value Reference Range Interpretation Comments MAGNESIUM (test code = 9009069708) 1.7 mg/dL 1.7-2.4 Lab Interpretation (test code = Normal 77046-5) [facility] WITH [id number] 10:31:00 Test Item Value Reference Range Interpretation Comments WBC (test code = See_Comment [Automated 1190-2) message] The sy stem which generated this [...] RDW-SD (test code = 46.5 fL 38.5-51.6 76323-1) RDW-CV (test code = 14.3 % 12.1-15.4 788-0) PLT (test code = See_Comment L [Automated 777-3) message] The sy stem which generated this result transmitted reference range : 150 - 328 10*3/ ?L. The reference r meredith was not used to interpret this result as normal/abnormal . MPV (test code = 11.2 fL 9.8-13 55772-7) NRBC/100 WBC (test See_Comment [Automat ed code = 1408292174) message] The system which generated this result transmitted reference range : 0.0 - 10.0 /100 WBCs. The refer ence range was not u sed to interpret th is result as normal/abnormal . NRBC x10^3 (test code <0.01 See_Comment [Auto mated = 6211506333) message] The s ystem which generated this result transmitted reference range : 10*3/?L. The reference range was not used to interpret this result as normal/abnormal . GRAN MAT (NEUT) % 76.7 % (test code = 770-8) IMM GRAN % (test code 0.30 % = 9495304408) LYMPH % (test code = 16.4 % 736-9) MONO % (test code = 6.2 % 5905-5) EOS % (test code = 0.2 % 713-8) BASO % (test code = 0.2 % 706-2) GRAN MAT x10^3(ANC) 5.12 10*3/uL 1.99-6.95 (test code = 0419047565) IMM GRAN x10^3 (test <0.03 0-0.06 code = 4363666746) LYMPH x10^3 (test code 1.09 10*3/uL 1.09-3.23 = 731-0) MONO x10^3 (test code 0.41 10*3/uL 0.36-1.02 = 742-7) EOS x10^3 (test code = <0.03 0.06-0.53 L 711-2) BASO x10^3 (test code <0.03 0.01-0.09 = 704-7) Lab Interpretation Abnormal (test code = 69637-7) [facility] WITH [id number] 11:04:00 Test Item Value Reference Range Interpretation [...] RDW-SD (test code = 45.6 fL 38.5-51.6 27064-8) RDW-CV (test code = 14.0 % 12.1-15.4 788-0) PLT (test code = See_Comment L [Automated 777-3) message] The sy stem which generated this result transmitted reference range : 150 - 328 10*3/ ?L. The reference r meredith was not used to interpret this result as normal/abnormal . MPV (test code = 11.2 fL 9.8-13 85751-0) NRBC/100 WBC (test See_Comment [Automat ed code = 6568378343) message] The system which generated this result transmitted reference range : 0.0 - 10.0 /100 WBCs. The refer ence range was not u sed to interpret th is result as normal/abnormal . NRBC x10^3 (test code <0.01 See_Comment [Auto mated = 3779451594) message] The s ystem which generated this result transmitted reference range : 10*3/?L. The reference range was not used to interpret this result as normal/abnormal . GRAN MAT (NEUT) % 52.7 % (test code = 770-8) IMM GRAN % (test code 0.30 % = 1892073041) LYMPH % (test code = 34.6 % 736-9) MONO % (test code = 9.6 % 5905-5) EOS % (test code = 2.2 % 713-8) BASO % (test code = 0.6 % 706-2) GRAN MAT x10^3(ANC) 1.88 10*3/uL 1.99-6.95 L (test code = 6519080919) IMM GRAN x10^3 (test <0.03 0-0.06 code = 0662135069) LYMPH x10^3 (test code 1.23 10*3/uL 1.09-3.23 = 731-0) MONO x10^3 (test code 0.34 10*3/uL 0.36-1.02 L = 742-7) EOS x10^3 (test code = 0.08 10*3/uL 0.06-0.53 711-2) BASO x10^3 (test code <0.03 0.01-0.09 = 704-7) REACT LYMPHS (test Rare code = 2636446337) Lab Interpretation Abnormal (test code = 35951-3) [facility] METABOLIC PANEL (NA, K, CL, CO2, GLUCOSE, BUN, CREATININE, CA)2020-04-03 10:54:00 Test Item Value Reference Range Interpretation Comments NA (test code = 140 mmol/L 135-145 8631315138) K (test code = 3.9 mmol/L 3.5-5 0557516097) CL (test code = 107 mmol/L 98-108 5521068556) CO2 TOTAL (test code = 28 mmol/L 23-31 6596991081) AGAP (test code = 2-16 1160082803) BUN (test code = 4 mg/dL 7-23 L 8931931546) GLUCOSE (test code = 88 mg/dL 70-110 7052207670) CREATININE (test code = 0.96 mg/dL 0.6-1.25 8689214144) CALCIUM (test code = 8.6 mg/dL 8.6-10.6 4350112974) eGFR Calculation mL/min/1.73m2 (Non-) (test code = 0214061828) eGFR Calculation mL/min/1.73m2 () (test code = 0457915649) GILBERTO (test code = GILBERTO) Association of [...] tests). Lab Interpretation Abnormal (test code = 95973-2) [facility]2020-08-11 10:54:00 Test Item Value Reference Range Interpretation Comments MAGNESIUM (test code = 3613456512) 2.0 mg/dL 1.7-2.4 Lab Interpretation (test code = Normal 98589-0) [facility] RegionalType and Screen - ONCE [id number] 23:40:25 Test Item Value Reference Range Interpretation Comments ABO & RH (test code O POSITIVE Performe d at [facility] = 20) Laboratory Serv [facility]3 [address] [facility] s [address]Stpw Free: [phone] A No. [id number] IAT (test code = Negative Performed a t [facility] 1185) Laboratory Serv [facility] Blood [facility]3 [facility] s [address]Mhlz Free: [phone] A No. [id number] [facility] WITH [id number] 11:21:00 Test Item Value Reference Range Interpretation Comments WBC (test code = See_Comment L [Automated 1590-2) message] The sy stem which generated this result transmitted reference range : 4.20 - 10.70 10*3/?L. The reference range was not used to interpret this result as normal/abnormal . RBC (test code = See_Comment L [Automated 149-8) message] The sy stem which generated this [...] RDW-SD (test code = 45.8 fL 38.5-51.6 32662-9) RDW-CV (test code = 14.2 % 12.1-15.4 788-0) PLT (test code = See_Comment L [Automated 777-3) message] The sy stem which generated this result transmitted reference range : 150 - 328 10*3/ ?L. The reference r meredith was not used to interpret this result as normal/abnormal . MPV (test code = 10.6 fL 9.8-13 88031-4) NRBC/100 WBC (test See_Comment [Automat ed code = 7996115415) message] The system which generated this result transmitted reference range : 0.0 - 10.0 /100 WBCs. The refer ence range was not u sed to interpret th is result as normal/abnormal . NRBC x10^3 (test code <0.01 See_Comment [Auto mated = 6643739554) message] The s ystem which generated this result transmitted reference range : 10*3/?L. The reference range was not used to interpret this result as normal/abnormal . GRAN MAT (NEUT) % 46.4 % (test code = 770-8) IMM GRAN % (test code 0.30 % = 2828586678) LYMPH % (test code = 38.8 % 736-9) MONO % (test code = 10.5 % 5905-5) EOS % (test code = 3.3 % 713-8) BASO % (test code = 0.7 % 706-2) GRAN MAT x10^3(ANC) 1.41 10*3/uL 1.99-6.95 L (test code = 3928777890) IMM GRAN x10^3 (test <0.03 0-0.06 code = 4317328107) LYMPH x10^3 (test code 1.18 10*3/uL 1.09-3.23 = 731-0) MONO x10^3 (test code 0.32 10*3/uL 0.36-1.02 L = 742-7) EOS x10^3 (test code = 0.10 10*3/uL 0.06-0.53 711-2) BASO x10^3 (test code <0.03 0.01-0.09 = 704-7) HYPERSEG NEUTS (test Present See_Comment A [Autom ated code = 765-8) message] The [employer] which generated this result transmitted reference range : (none). The reference range was not used to interpret this result as normal/abnormal . Lab Interpretation Abnormal (test code = 46131-2) [facility] METABOLIC PANEL (NA, K, CL, CO2, GLUCOSE, BUN, CREATININE, CA)2020-04-02 11:05:00 Test Item Value Reference Range Interpretation Comments NA (test code = 139 mmol/L 135-145 0188201542) K (test code = 4.0 mmol/L 3.5-5 1961502892) CL (test code = 108 mmol/L 98-108 4603171632) CO2 TOTAL (test code = 25 mmol/L 23-31 6304304491) AGAP (test code = 2-16 8678979747) BUN (test code = 6 mg/dL 7-23 L 1772497668) GLUCOSE (test code = 99 mg/dL 70-110 3126462490) CREATININE (test code = 0.92 mg/dL 0.6-1.25 1621660843) CALCIUM (test code = 8.3 mg/dL 8.6-10.6 L 4318983138) eGFR Calculation mL/min/1.73m2 (Non-) (test code = 2459370384) eGFR Calculation mL/min/1.73m2 () (test code = 8192452976) GILBERTO (test code = GILBERTO) Association of [...] tests). Lab Interpretation Abnormal (test code = 42321-5) [facility]2020-08-10 11:05:00 Test Item Value Reference Range Interpretation Comments MAGNESIUM (test code = 7970852478) 2.0 mg/dL 1.7-2.4 Lab Interpretation (test code = Normal 20250-4) [facility] RegionalCOVID-19 (ID NOW RAPID TESTING)2020-04-02 00:43:00 Test Item Value Reference Range Interpretation Comments SARS-CoV-2 Rapid ID NOW Not Detected Not Detected (test code = 19322-5) GILBERTO (test code = GILBERTO) ID NOW COVID-19 Assay is an isothermal nucleic acid amplification test intended for the qualitative detection of nucleic acid from SARS-CoV-2 viral RNA in nasopharyngeal (INSPECTOR ADVANCED COMPOSITE) specimens. It is used under Emergency Use [...] indicated. Lab Interpretation Normal (test code = 35445-8) [facility] RegionalUrinalysis2020-08-08 11:39:00 Test Item Value Reference Range Interpretation Comments APPEARANCE (test code = Hazy Clear A 9550918761) COLOR (test code = Yellow Yellow 7039651627) PH (test code = 4.8-8.0 0860269834) SP GRAVITY (test code = 1.003-1.030 H 4919477586) GLU U QUAL (test code = Normal Normal 5084926485) BLOOD (test code = Negative Negative 3208237676) KETONES (test code = 5 mg/dL Negative A 2260577692) PROTEIN (test code = Negative Negative 2887-8) UROBILIN (test code = 2.0 mg/dL Normal A 7007864815) BILIRUBIN (test code = Negative Negative 0080731607) NITRITE (test code = Negative Negative 7292687317) LEUK ROGER (test code = Negative Negative 2592842599) RBC/HPF (test code = See_Comment [Autom ated message] 9169590809) The system [employer] generated this result transmit dain reference range : 0 - 3 HPF. The refe rence range was not u sed to interpret th is result as normal/abnormal . WBC/HPF (test code = See_Comment [Autom ated message] 7582615863) The system [employer] generated this result transmit dain reference range : 0 - 5 HPF. The refe rence range was not u sed to interpret th is result as normal/abnormal . BACTERIA (test code = Negative Negative 2385757915) CA OXALATE (test code = See_Comment H [Au tomated message] 8278130824) The system [employer] generated this result transmit dain reference range : <=1 HPF. The refere nce range was not u sed to interpret th is result as normal/abnormal . Lab Interpretation (test Abnormal code = 05250-9) [facility] RegionalCT ABDOMEN PELVIS W [id number] 00:38:37 1. ?Massive air distention of the [...] focal loculated drainable fluidcollection.RL: 460END OF REPORT [facility] (NA, K, CL, CO2, GLUCOSE, BUN, CREATININE, CA)2020-03-30 23:45:00 Test Item Value Reference Range Interpretation Comments NA (test code = 140 mmol/L 135-145 1210914069) K (test code = 4.3 mmol/L 3.5-5 9789957150) CL (test code = 101 mmol/L 98-108 8165335091) CO2 TOTAL (test code = 28 mmol/L 23-31 5010453873) AGAP (test code = 2-16 6683831536) BUN (test code = 24 mg/dL 7-23 H 7736857903) GLUCOSE (test code = 90 mg/dL 70-110 8604896386) CREATININE (test code = 1.29 mg/dL 0.6-1.25 H 7725697318) CALCIUM (test code = 9.4 mg/dL 8.6-10.6 8397025404) eGFR Calculation mL/min/1.73m2 (Non-) (test code = 6597458812) eGFR Calculation mL/min/1.73m2 () (test code = 5536033706) GILBERTO (test code = GILBERTO) Association of [...] tests). Lab Interpretation Abnormal (test code = 30333-6) [facility] 1 [id number] 23:00:46 No evidence for an acute cardiopulmonary process. Unchanged asymmetric elevation of the left hemidiaphragm. Air-filled colon, similar to that seen on the March 02, 2020 exam. RL: ?3708 [facility]: Abdominal pain ORDERING PHYSICIAN: ?ALEX LOPEZ TECHNIQUE: Frontal view of chest COMPARISON: [...] free air is seen under the diaphragm. [facility], Radiant Results Inft User - 03/30/2020 6:01 PM CDTCHEST SINGLE VIEWCLINICAL HISTORY: Abdominal painORDERING PHYSICIAN: ALEX LEDEZMA: Frontal view of chestCOMPARISON: Chest and abdominal [...] on the March 02, 2020 exam.RL: 3708 [facility] RegionalTrvanderbilt-[facility] centertawanna [id number] 22:39:00 Test Item Value Reference Range Interpretation Comments TROPONIN I (test 0.008 ng/mL See_Comment [Automated code = 9000426177) message] The system which generated this result [...] ? Lab Interpretation Normal (test code = 34919-3) [facility] RegionalN-TERMINAL GAY-[id number] 22:39:00 Test Item Value Reference Range Interpretation Comments NT-proBNP (test code 42 pg/mL See_Comment [Autom ated = 0589085946) message] The system which generated this result transmitted reference range : <=125. The reference range was not used to interpret this result as normal/abnormal . GILBERTO (test code = GILBERTO) Biotin has been reported to cause a negative bias, interpret results relative to patient's use of biotin. Lab Interpretation Normal (test code = 53212-9) [facility] RegionalHepatic Function Panel (ALB, T.PRO, BILI T, BU/BC, ALT, AST, ALK PHOS)2020-03-30 22:27:00 Test Item Value Reference Range Interpretation Comments TOTAL BILI (test code = 1290746225) 0.5 mg/dL 0.1-1.1 BILI UNCON (test code = 3660183248) 0.3 mg/dL 0.1-1.1 BILI CONJ (test code = 0803822345) 0.0 mg/dL 0-0.3 T PROTEIN (test code = 9597299597) 6.7 g/dL 6.3-8.2 ALBUMIN (test code = 8841765915) 4.5 g/dL 3.5-5 ALK PHOS (test code = 7099978861) 57 U/L 34-122 ALTv (test code = 1742-6) 31 U/L 5-50 AST(SGOT) (test code = 3686872414) 38 U/L 13-40 Lab Interpretation (test code = Normal 77827-6) [facility] RegionalLipase [id number] 22:27:00 Test Item Value Reference Range Interpretation Comments LIPASE (test code = 4386738932) 62 U/L 0-220 Lab Interpretation (test code = Normal 90043-7) [facility] RegionalaPTT2020-08-07 22:25:00 Test Item Value Reference Range Interpretation Comments APTT Patient (test code = See_Comment [ Automated message] 3173-2) The system whic h generated this result transmitted ref erence range: 26 - 36 Seconds. The re ference range was not u sed to interpret this result as normal/abnor mal. Lab Interpretation (test Normal code = 14372-4) [facility] RegionalProthrombin Time (PT) / [id number] 22:25:00 Test Item Value Reference Range Interpretation Comments PROTIME PATIENT (test See_Comment [Auto mated message] code = 5964-2) The system ich generated this result transmitted ref erence range: 10.1 - 1 2.6 Seconds. The re ference range was not u sed to interpret this result as normal/abnor mal. INR (test code = 6301-6) Nor mal INR <1.1; Warfarin Therap eutic range 2.0 to 3. 0 or 2.5 to 3.5, dep ending upon the indica tions. Lab Interpretation (test Normal code = 22507-7) [facility] RegionalCBC with Sxccmndbqnbm5546-05-46 22:17:00 Test Item Value Reference Range Interpretation [...] RDW-SD (test code = 46.9 fL 38.5-51.6 88339-2) RDW-CV (test code = 14.3 % 12.1-15.4 788-0) PLT (test code = See_Comment [Automated 777-3) message] The sy stem which generated this result transmitted reference range : 150 - 328 10*3/ ?L. The reference r meredith was not used to interpret this result as normal/abnormal . MPV (test code = 10.7 fL 9.8-13 21957-1) NRBC/100 WBC (test See_Comment [Automat ed code = 9918070194) message] The system which generated this result transmitted reference range : 0.0 - 10.0 /100 WBCs. The refer ence range was not u sed to interpret th is result as normal/abnormal . NRBC x10^3 (test code <0.01 See_Comment [Auto mated = 7050376859) message] The s ystem which generated this result transmitted reference range : 10*3/?L. The reference range was not used to interpret this result as normal/abnormal . GRAN MAT (NEUT) % 51.7 % (test code = 770-8) IMM GRAN % (test code 0.40 % = 8045313793) LYMPH % (test code = 32.8 % 736-9) MONO % (test code = 12.4 % 5905-5) EOS % (test code = 2.1 % 713-8) BASO % (test code = 0.6 % 706-2) GRAN MAT x10^3(ANC) 2.76 10*3/uL 1.99-6.95 (test code = 6436747633) IMM GRAN x10^3 (test <0.03 0-0.06 code = 3655436853) LYMPH x10^3 (test code 1.75 10*3/uL 1.09-3.23 = 731-0) MONO x10^3 (test code 0.66 10*3/uL 0.36-1.02 = 742-7) EOS x10^3 (test code = 0.11 10*3/uL 0.06-0.53 711-2) BASO x10^3 (test code 0.03 10*3/uL 0.01-0.09 = 704-7) Lab Interpretation Abnormal (test code = 69813-3) [facility] with Rimnyjqdttjq8666-22-65 10:26:00 Test Item Value Reference Range Interpretation [...] RDW-SD (test code = 46.3 fL 38.5-51.6 70572-1) RDW-CV (test code = 14.2 % 12.1-15.4 788-0) PLT (test code = See_Comment L [Automated 777-3) message] The sy stem which generated this result transmitted reference range : 150 - 328 10*3/ ?L. The reference r meredith was not used to interpret this result as normal/abnormal . MPV (test code = 10.6 fL 9.8-13 21531-1) NRBC/100 WBC (test See_Comment [Automat ed code = 0642364926) message] The system which generated this result transmitted reference range : 0.0 - 10.0 /100 WBCs. The refer ence range was not u sed to interpret th is result as normal/abnormal . NRBC x10^3 (test code <0.01 See_Comment [Auto mated = 7199851541) message] The s ystem which generated this result transmitted reference range : 10*3/?L. The reference range was not used to interpret this result as normal/abnormal . GRAN MAT (NEUT) % 51.3 % (test code = 770-8) IMM GRAN % (test code 0.30 % = 0033292218) LYMPH % (test code = 32.2 % 736-9) MONO % (test code = 12.7 % 5905-5) EOS % (test code = 3.0 % 713-8) BASO % (test code = 0.5 % 706-2) GRAN MAT x10^3(ANC) 1.89 10*3/uL 1.99-6.95 L (test code = 4381332494) IMM GRAN x10^3 (test <0.03 0-0.06 code = 3898899123) LYMPH x10^3 (test code 1.19 10*3/uL 1.09-3.23 = 731-0) MONO x10^3 (test code 0.47 10*3/uL 0.36-1.02 = 742-7) EOS x10^3 (test code = 0.11 10*3/uL 0.06-0.53 711-2) BASO x10^3 (test code <0.03 0.01-0.09 = 704-7) Lab Interpretation Abnormal (test code = 12886-7) [facility] RegionalMagnesium [id number] 10:17:00 Test Item Value Reference Range Interpretation Comments MAGNESIUM (test code = 2270167679) 2.0 mg/dL 1.7-2.4 Lab Interpretation (test code = Normal 20360-5) [facility] (NA, K, CL, CO2, GLUCOSE, BUN, CREATININE, CA)2020-03-26 10:17:00 Test Item Value Reference Range Interpretation Comments NA (test code = 136 mmol/L 135-145 7476402999) K (test code = 4.6 mmol/L 3.5-5 Slight 9833887408) hemolysis CL (test code = 109 mmol/L 98-108 H 5864400143) CO2 TOTAL (test code 26 mmol/L 23-31 = [id number]) AGAP (test code = 2-16 L [id number]) BUN (test code = 22 mg/dL 7-23 Slight [id number]) hemolysis GLUCOSE (test code = 82 mg/dL 70-110 4917089946) CREATININE (test code 0.88 mg/dL 0.6-1.25 = 5633980988) CALCIUM (test code = 8.1 mg/dL 8.6-10.6 L [id number]) eGFR Calculation mL/min/1.73m2 (Non-) (test code = [id number]) eGFR Calculation mL/min/1.73m2 () (test code = 6141271122) GILBERTO (test code = GILBERTO) Association of [...] tests). Lab Interpretation Abnormal (test code = 76106-0) [facility] RegionalL[facility] Whole [id number] 04:22:00 Test Item Value Reference Range Interpretation Comments LACTIC ACID (test code = 1.52 mmol/L 7054081193) [facility] RegionalPhosphorus [id number] 03:37:00 Test Item Value Reference Range Interpretation Comments PHOSPHORUS (test code = 9671195743) 4.6 mg/dL 2.5-5 Lab Interpretation (test code = Normal 96715-4) [facility] RegionalMAGNESIUM2020-08-03 03:37:00 Test Item Value Reference Range Interpretation Comments MAGNESIUM (test code = 2390655352) 2.3 mg/dL 1.7-2.4 Lab Interpretation (test code = Normal 83329-0) [facility] RegionalCOVID-19 (ID NOW RAPID TESTING)2020-03-26 02:24:00 Test Item Value Reference Range Interpretation Comments SARS-CoV-2 Rapid ID NOW Not Detected Not Detected (test code = 22945-5) GILBERTO (test code = GILBERTO) ID NOW COVID-19 Assay is an isothermal nucleic acid amplification test intended for the qualitative detection of nucleic acid from SARS-CoV-2 viral RNA in nasopharyngeal (INSPECTOR ADVANCED COMPOSITE) specimens. It is used under Emergency Use [...] indicated. Lab Interpretation Normal (test code = 82590-9) [facility]CT A[facility]EN PELVIS W [id number] 01:33:06 Redemonstration of severe dilatation of the [...] CT radiation dose parameters performed according to RICHARD. COMPARISON: Abdomen radiograph from 03/02/[address] [...] No focal bowel inflammation or wall thickening.. [facility] Metabolic Panel (NA, K, CL, CO2, GLUCOSE, BUN, CREATININE, CA)2020-03-26 00:57:00 Test Item Value Reference Range Interpretation Comments NA (test code = 139 mmol/L 135-145 4987908552) K (test code = 4.4 mmol/L 3.5-5 3730976061) CL (test code = 105 mmol/L 98-108 1895257264) CO2 TOTAL (test code = 29 mmol/L 23-31 2833237871) AGAP (test code = 2-16 6391792108) BUN (test code = 28 mg/dL 7-23 H 7166954681) GLUCOSE (test code = 84 mg/dL 70-110 0140902460) CREATININE (test code = 1.19 mg/dL 0.6-1.25 7043441629) CALCIUM (test code = 8.9 mg/dL 8.6-10.6 8564937980) eGFR Calculation mL/min/1.73m2 (Non-) (test code = 0383933740) eGFR Calculation mL/min/1.73m2 () (test code = 7420032562) GILBERTO (test code = GILBERTO) Association of [...] tests). Lab Interpretation Abnormal (test code = 97425-7) [facility]Hep[facility] Function Panel (ALB, T.PRO, BILI T, BU/BC, ALT, AST, ALK PHOS)2020-03-26 00:57:00 Test Item Value Reference Range Interpretation Comments TOTAL BILI (test code = 0595738747) 0.2 mg/dL 0.1-1.1 BILI UNCON (test code = 4001001699) 0.0 mg/dL 0.1-1.1 L BILI CONJ (test code = 0639300225) 0.0 mg/dL 0-0.3 T PROTEIN (test code = 4329335884) 6.2 g/dL 6.3-8.2 L ALBUMIN (test code = 2687837868) 4.1 g/dL 3.5-5 ALK PHOS (test code = 8660677487) 56 U/L 34-122 ALTv (test code = 1742-6) 24 U/L 5-50 AST(SGOT) (test code = 7795638049) 28 U/L 13-40 Lab Interpretation (test code = Abnormal 87452-4) [facility] RegionalCBC with [id number] 00:47:00 Test Item Value Reference Range Interpretation Comments WBC (test code = See_Comment [Automated 8890-2) message] The sy stem which generated this result transmitted reference range : 4.20 - 10.70 10*3/?L. The reference range was not used to interpret this result as normal/abnormal . RBC (test code = See_Comment L [Automated 549-8) message] The sy stem which generated this [...] RDW-SD (test code = 45.9 fL 38.5-51.6 45365-8) RDW-CV (test code = 14.0 % 12.1-15.4 788-0) PLT (test code = See_Comment [Automated 777-3) message] The sy stem which generated this result transmitted reference range : 150 - 328 10*3/ ?L. The reference r meredith was not used to interpret this result as normal/abnormal . MPV (test code = 10.9 fL 9.8-13 22856-7) NRBC/100 WBC (test See_Comment [Automat ed code = 2668629007) message] The system which generated this result transmitted reference range : 0.0 - 10.0 /100 WBCs. The refer ence range was not u sed to interpret th is result as normal/abnormal . NRBC x10^3 (test code <0.01 See_Comment [Auto mated = 7063859871) message] The s ystem which generated this result transmitted reference range : 10*3/?L. The reference range was not used to interpret this result as normal/abnormal . GRAN MAT (NEUT) % 49.8 % (test code = 770-8) IMM GRAN % (test code 0.20 % = 6520027590) LYMPH % (test code = 32.0 % 736-9) MONO % (test code = 14.3 % 5905-5) EOS % (test code = 3.0 % 713-8) BASO % (test code = 0.7 % 706-2) GRAN MAT x10^3(ANC) 2.29 10*3/uL 1.99-6.95 (test code = 7620468658) IMM GRAN x10^3 (test <0.03 0-0.06 code = 6240689263) LYMPH x10^3 (test code 1.47 10*3/uL 1.09-3.23 = 731-0) MONO x10^3 (test code 0.66 10*3/uL 0.36-1.02 = 742-7) EOS x10^3 (test code = 0.14 10*3/uL 0.06-0.53 711-2) BASO x10^3 (test code 0.03 10*3/uL 0.01-0.09 = 704-7) Lab Interpretation Abnormal (test code = 11793-7) [facility] RegionalMagnesium Krgvx8476-69-46 05:23:00 Test Item Value Reference Range Interpretation Comments MAGNESIUM (test code = 0301621628) 2.1 mg/dL 1.7-2.4 Lab Interpretation (test code = Normal 83495-2) [facility]COVID-19 (ID NOW RAPID TESTING)2020-03-03 04:45:00 Test Item Value Reference Range Interpretation Comments SARS-CoV-2 Rapid ID NOW Not Detected Not Detected (test code = 83076-7) GILBERTO (test code = GILBERTO) ID NOW COVID-19 Assay is an isothermal nucleic acid amplification test intended for the qualitative detection of nucleic acid from SARS-CoV-2 viral RNA in nasopharyngeal (INSPECTOR ADVANCED COMPOSITE) specimens. It is used under Emergency Use [...] indicated. Lab Interpretation Normal (test code = 33643-1) [facility] RegionalProthrombin Time / [id number] 04:40:00 Test Item Value Reference Range Interpretation Comments PROTIME PATIENT (test See_Comment [Auto mated message] code = 5964-2) The system [employer] generated this result transmitted ref erence range: 10.1 - 1 2.6 Seconds. The re ference range was not u sed to interpret this result as normal/abnor mal. INR (test code = 6301-6) Nor mal INR <1.1; Warfarin Therap eutic range 2.0 to 3. 0 or 2.5 to 3.5, dep ending upon the indica tions. Lab Interpretation (test Normal code = 01583-1) [facility] RegionalaPTT2020-07-11 04:40:00 Test Item Value Reference Range Interpretation Comments APTT Patient (test code = See_Comment [ Automated message] 3173-2) The system [employer] h generated this result transmitted ref erence range: 26 - 36 Seconds. The re ference range was not u sed to interpret this result as normal/abnor mal. Lab Interpretation (test Normal code = 25949-7) [facility] RegionalPhosphorus [id number] 04:31:00 Test Item Value Reference Range Interpretation Comments PHOSPHORUS (test code = 8829843243) 4.0 mg/dL 2.5-5 Lab Interpretation (test code = Normal 35174-4) [facility] RegionalXR ABDOMEN ACUTE [id number] 02:54:09 Impression: No radiographic evidence for acute cardiopulmonary disease. No radiographic evidence forpneumoperitoneum. Marked gaseous distention of predominantly large bowel loops in the abdomenand pelvis, similar to prior CT of 02/26/2020. On that CT, there was atransition in the distal descending colon, without mass lesion or definitesigmoid volvulus appreciated. RL: 460 AFC: 72936 Indication: Diffuse abdominal pain, obstructionComparison: CT the [...] pelvis, similar to prior CT of 02/26/2020 [facility], Radiant Results Inft User -03/02/2020 9:55 PM [...] lesion or definitesigmoid volvulus appreciated. RL: 460AF: [id number] signed by Angeli Carrillo MD, PhD at 03/02/2020 9:54 PM [facility] RegionalUrinalysis2020-07-11 01:50:00 Test Item Value Reference Range Interpretation Comments APPEARANCE (test code = Hazy Clear A 5200584945) COLOR (test code = Tahira Yellow A 3687445313) PH (test code = 4.8-8.0 9077101536) SP GRAVITY (test code = 1.003-1.030 9942731668) GLU U QUAL (test code = Normal Normal 2493890470) BLOOD (test code = Negative Negative 2665295839) KETONES (test code = 5 mg/dL Negative A 5083712140) PROTEIN (test code = Negative Negative 2887-8) UROBILIN (test code = 2.0 mg/dL Normal A 7124611440) BILIRUBIN (test code = Negative Negative 6909221439) NITRITE (test code = Negative Negative 4732302926) LEUK ROGER (test code = Negative Negative 7661414225) RBC/HPF (test code = See_Comment [Autom ated message] 6699096227) The system [employer] generated this result transmit dain reference range : 0 - 3 HPF. The refe rence range was not u sed to interpret th is result as normal/abnormal . WBC/HPF (test code = See_Comment [Autom ated message] 6883906705) The system [employer] generated this result transmit dain reference range : 0 - 5 HPF. The refe rence range was not u sed to interpret th is result as normal/abnormal . BACTERIA (test code = Negative Negative 1546156584) MUCOUS (test code = Slight Negative LPF A 4280068281) SQ EPITH (test code = <1 See_Comment [Auto mated message] 4274984044) The system [employer] generated this result transmit dain reference range : <=2 HPF. The refere nce range was not u sed to interpret th is result as normal/abnormal . CA OXALATE (test code = See_Comment H [Au tomated message] 8837670106) The system [employer] generated this result transmit dain reference range : <=1 HPF. The refere nce range was not u sed to interpret th is result as normal/abnormal . SPERM (test code = See_Comment [Automat ed message] 1214140008) The system [employer] generated this result transmit dain reference range : <=1 HPF. The refere nce range was not u sed to interpret th is result as normal/abnormal . Lab Interpretation (test Abnormal code = 83984-3) [facility] Metabolic Panel (NA, K, CL, CO2, GLUCOSE, BUN, CREATININE, CA)2020-03-03 01:44:00 Test Item Value Reference Range Interpretation Comments NA (test code = 140 mmol/L 135-145 7217602306) K (test code = 4.1 mmol/L 3.5-5 0439928237) CL (test code = 106 mmol/L 98-108 8032216882) CO2 TOTAL (test code = 25 mmol/L 23-31 8489326853) AGAP (test code = 2-16 0991469679) BUN (test code = 17 mg/dL 7-23 1154988237) GLUCOSE (test code = 91 mg/dL 70-110 5310844763) CREATININE (test code 1.13 mg/dL 0.6-1.25 = 3561649142) CALCIUM (test code = 9.0 mg/dL 8.6-10.6 9425593815) eGFR Calculation mL/min/1.73m2 (Non-) (test code = 8190791844) eGFR Calculation mL/min/1.73m2 () (test code = 8169677024) GILBERTO (test code = GILBERTO) Association of [...] or urine or abnormalities in imaging tests). [facility] RegionalHep[facility] Function Panel (ALB, T.PRO, BILI T, BU/BC, ALT, AST, ALK PHOS)2020-03-03 01:44:00 Test Item Value Reference Range Interpretation Comments TOTAL BILI (test code = 9258677616) 0.4 mg/dL 0.1-1.1 BILI UNCON (test code = 4961168273) 0.4 mg/dL 0.1-1.1 BILI CONJ (test code = 9089498662) 0.0 mg/dL 0-0.3 T PROTEIN (test code = 4251611596) 6.3 g/dL 6.3-8.2 ALBUMIN (test code = 1462038486) 4.2 g/dL 3.5-5 ALK PHOS (test code = 7998178069) 43 U/L 34-122 ALTv (test code = 1742-6) 20 U/L 5-50 AST(SGOT) (test code = 6040413870) 26 U/L 13-40 Lab Interpretation (test code = Normal 18696-8) [facility] WITH [id number] 01:37:00 Test Item Value Reference Range Interpretation [...] RDW-SD (test code = 45.0 fL 38.5-51.6 05398-6) RDW-CV (test code = 13.7 % 12.1-15.4 788-0) PLT (test code = See_Comment [Automated 777-3) message] The sy stem which generated this result transmitted reference range : 150 - 328 10*3/ ?L. The reference r meredith was not used to interpret this result as normal/abnormal . MPV (test code = 11.3 fL 9.8-13 09698-7) NRBC/100 WBC (test See_Comment [Automat ed code = 8685920364) message] The system which generated this result transmitted reference range : 0.0 - 10.0 /100 WBCs. The refer ence range was not u sed to interpret th is result as normal/abnormal . NRBC x10^3 (test code <0.01 See_Comment [Auto mated = 3679909297) message] The s ystem which generated this result transmitted reference range : 10*3/?L. The reference range was not used to interpret this result as normal/abnormal . GRAN MAT (NEUT) % 53.2 % (test code = 770-8) IMM GRAN % (test code 0.20 % = 0869648072) LYMPH % (test code = 34.5 % 736-9) MONO % (test code = 9.7 % 5905-5) EOS % (test code = 1.8 % 713-8) BASO % (test code = 0.6 % 706-2) GRAN MAT x10^3(ANC) 2.69 10*3/uL 1.99-6.95 (test code = 8919669198) IMM GRAN x10^3 (test <0.03 0-0.06 code = 0572475939) LYMPH x10^3 (test code 1.74 10*3/uL 1.09-3.23 = 731-0) MONO x10^3 (test code 0.49 10*3/uL 0.36-1.02 = 742-7) EOS x10^3 (test code = 0.09 10*3/uL 0.06-0.53 711-2) BASO x10^3 (test code 0.03 10*3/uL 0.01-0.09 = 704-7) Lab Interpretation Abnormal (test code = 58937-7) [facility] RegionalLactic Acid Whole Caiyx1475-81-94 01:28:00 Test Item Value Reference Range Interpretation Comments LACTIC ACID (test code = 1.62 mmol/L 5667897325) [facility] RegionalDRUG PANEL 2 [id number] 22:13:00 Test Item Value Reference Range Interpretation Comments AMPHET (test code = Negative Negative 8102184439) LOS U (test code = Negative Negative 1116026445) BENZO U (test code = Negative Negative 8877853966) Cocaine Metabolite (test Negative Negative code = 8332356994) METHADONE (test code = Negative Negative 7530803881) OPIATES (test code = Negative Negative 6366018426) PCP (test code = Negative Negative 5898566961) THC (test code = Negative Negative 9287289187) GILBERTO (test code = GILBERTO) Urine Drug [...] testing). Lab Interpretation (test Normal code = 80836-3) [facility] RegionalTHYROID STIMULATING [id number] 19:02:00 Test Item Value Reference Range Interpretation Comments TSH (test code = See_Comment [Automated message] 5902683328) The system [employer] generated this result transmitted ref erence range: 0.45 - 4 .70 mIU/L. The refe rence range was not u sed to interpret this result as normal/abnor mal. Lab Interpretation (test Normal code = 81940-7) [facility] [id number] 18:49:00 Test Item Value Reference Range Interpretation Comments FREE T3 (test code = 8949872531) 2.56 pg/mL 2.77-5.27 L Lab Interpretation (test code = Abnormal 83107-2) [facility] [id number] 18:49:00 Test Item Value Reference Range Interpretation Comments FREE T4 (test code = See_Comment [Autom ated message] 6558823538) The system [employer] generated this result transmitted ref erence range: 0.78 - 2 .20 ng/dL:. The ref erence range was not u sed to interpret this result as normal/abnor mal. Lab Interpretation (test Normal code = 16267-9) [facility] RegionalCT ABDOMEN PELVIS W [id number] 20:56:47 Persistent marked severe dilatation of the transverse colon and small bowelwithout obstructing massor mural thickening. Additionally, there isgaseous distention and dilatation of the distal bowel. These findings aregrossly unchanged compared to prior CTs. No CT evidence evidence ofvolvulus. Preliminary Report Dictated by Resident: Merritt Fontenot ?MD Jenniffer., have reviewed this study and agree withthe [...] No focal hepatic lesions. Normal contour. Hepatomegaly, dundwhvvz70.7 cm, in the craniocaudal dimension. Diffuse hypoattenuation [...] No focal hepatic lesions. Normal contour. Hepatomegaly, .7 cm, in the craniocaudal dimension. Diffuse hypoattenuation [...] this study and agree withthe above report. [facility] RegionalCOVID-19 (ID NOW RAPID TESTING)2020-02-26 07:03:00 Test Item Value Reference Range Interpretation Comments SARS-CoV-2 Rapid ID NOW Not Detected Not Detected (test code = 47799-8) GILBERTO (test code = GILBERTO) ID NOW COVID-19 Assay is an isothermal nucleic acid amplification test intended for the qualitative detection of nucleic acid from SARS-CoV-2 viral RNA in nasopharyngeal (INSPECTOR ADVANCED COMPOSITE) specimens. It is used under Emergency Use [...] indicated. Lab Interpretation Normal (test code = 06231-8) [facility]XR ABDOMEN ACUTE [id number] 05:00:33 Impression: No radiographic evidence for acute cardiopulmonary disease. Marked gaseous distention ofthe colon, with a relative paucity of gas inthe distal sigmoid colon and rectum. This may reflect pseudoobstruction,but mechanical distal colonic obstruction cannot be excluded. RL: 460 AF: 86065 Ordering physician: SABI Taborcation: Abdominal distention Comparison: [...] in the distal sigmoid colon and rectum. [facility], Radiant Results Inft User - 02/26/2020 12:02 AM CDTOrdering physician: SABI Roseion: Abdominal distentionComparison: NoneFindi ngs: AP view of [...] distal colonic obstruction cannot be excluded.RL: 460AF: 82665Ttkpihnfypulww signed by Angeli Carrillo MD, PhD at 02/26/2020 12:00 [facility] Metabolic Panel (NA, K, CL, CO2, GLUCOSE, BUN, CREATININE, CA)2020-02-26 04:03:00 Test Item Value Reference Range Interpretation Comments NA (test code = 142 mmol/L 135-145 5006594850) K (test code = 4.1 mmol/L 3.5-5 5306794314) CL (test code = 107 mmol/L 98-108 4963105904) CO2 TOTAL (test code = 29 mmol/L 23-31 0741471672) AGAP (test code = 2-16 3862782213) BUN (test code = 13 mg/dL 7-23 7235679423) GLUCOSE (test code = 82 mg/dL 70-110 1192829525) CREATININE (test code 1.14 mg/dL 0.6-1.25 = 1566257561) CALCIUM (test code = 9.5 mg/dL 8.6-10.6 2304939611) eGFR Calculation mL/min/1.73m2 (Non-) (test code = 8987411335) eGFR Calculation mL/min/1.73m2 () (test code = 9250099168) GILBERTO (test code = GILBERTO) Association of [...] or urine or abnormalities in imaging tests). [facility] RegionalHep[facility] Function Panel (ALB, T.PRO, BILI T, BU/BC, ALT, AST, ALK PHOS)2020-02-26 04:03:00 Test Item Value Reference Range Interpretation Comments TOTAL BILI (test code = 8763929107) 0.5 mg/dL 0.1-1.1 BILI UNCON (test code = 2631497316) 0.5 mg/dL 0.1-1.1 BILI CONJ (test code = 1274033358) 0.0 mg/dL 0-0.3 T PROTEIN (test code = 3589265903) 6.2 g/dL 6.3-8.2 L ALBUMIN (test code = 7559220945) 4.2 g/dL 3.5-5 ALK PHOS (test code = 0122095719) 40 U/L 34-122 ALTv (test code = 1742-6) 20 U/L 5-50 AST(SGOT) (test code = 2774431266) 26 U/L 13-40 Lab Interpretation (test code = Abnormal 36875-1) [facility] RegionalLipase [id number] 04:03:00 Test Item Value Reference Range Interpretation Comments LIPASE (test code = 6302437784) 57 U/L 0-220 Lab Interpretation (test code = Normal 20068-0) [facility] RegionalLactic Acid Whole [id number] 03:52:00 Test Item Value Reference Range Interpretation Comments LACTIC ACID (test code = 1.66 mmol/L 0.5-2.2 8535521802) [facility] WITH [id number] 03:47:00 Test Item Value Reference Range Interpretation [...] RDW-SD (test code = 45.1 fL 38.5-51.6 73605-4) RDW-CV (test code = 13.7 % 12.1-15.4 788-0) PLT (test code = See_Comment [Automated 777-3) message] The sy stem which generated this result transmitted reference range : 150 - 328 10*3/ ?L. The reference r meredith was not used to interpret this result as normal/abnormal . MPV (test code = 10.7 fL 9.8-13 53707-2) NRBC/100 WBC (test See_Comment [Automat ed code = 9574685691) message] The system which generated this result transmitted reference range : 0.0 - 10.0 /100 WBCs. The refer ence range was not u sed to interpret th is result as normal/abnormal . NRBC x10^3 (test code <0.01 See_Comment [Auto mated = 3762528338) message] The s ystem which generated this result transmitted reference range : 10*3/?L. The reference range was not used to interpret this result as normal/abnormal . GRAN MAT (NEUT) % 63.1 % (test code = 770-8) IMM GRAN % (test code 0.40 % = 0738269100) LYMPH % (test code = 25.1 % 736-9) MONO % (test code = 9.9 % 5905-5) EOS % (test code = 1.1 % 713-8) BASO % (test code = 0.4 % 706-2) GRAN MAT x10^3(ANC) 3.52 10*3/uL 1.99-6.95 (test code = 7124277270) IMM GRAN x10^3 (test <0.03 0-0.06 code = 1710567092) LYMPH x10^3 (test code 1.40 10*3/uL 1.09-3.23 = 731-0) MONO x10^3 (test code 0.55 10*3/uL 0.36-1.02 = 742-7) EOS x10^3 (test code = 0.06 10*3/uL 0.06-0.53 711-2) BASO x10^3 (test code <0.03 0.01-0.09 = 704-7) Lab Interpretation Abnormal (test code = 17201-6) [facility]EN 1 [id number] 12:53:00 Name: DORA JOSEPH [facility] : 1970 Age/S: 50 / M [address] Unit #: [id number] Loc: [place] [address] 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 Acct: [id number] Dis Date: Status: ADM IN PHONE #: [phone] Exam Date: 02/25/2020 1036 FAX #: Reason: abdominal distention EXAMS: CPT: [id number] XR ABDOMEN 1 V 28622 Fluoro Time: DAP (Gy m2): Air Kerma [...] the left lower quadrant (not previously seen) [id number] Reported and signed by: Sol Paige MD CC: Andre Solano; Mark Perea MD PAGE 1 Signed Report Name: DORA JOSEPH [facility] : 1970 Age/S: 50 / M [address] Unit #: [id number] Loc: [place] [address] 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 Acct: [id number] Dis Date: Status: ADM IN PHONE #: [phone] Exam Date: 02/25/2020 1036 FAX #: Reason: abdominal distention EXAMS: CPT: [id number] XR ABDOMEN 1 V 26471 Fluoro Time: DAP (Gy m2): Air Kerma (mGy): <Continued&g t; Technologist: Nichole Dill RT(R) Trnscb Date/Time: 02/25/2020 (3443) t.[email or web address] Orig PrintD/T: S: 02/25/2020 (7873) PAGE 2 Signed ReportCOMPREHENSIVE METABOLIC [id number] 08:20:00 Test Item Value Reference Range Interpretation [...] 50-136 L TOTAL (test code = ALKP) [id number] 08:20:00 Test Item Value Reference Range Interpretation Comments MAGNESIUM (test code = MAG) 2.2 MG/DL 1.8-2.4 N THYROID STIMULATING [id number] 08:20:00 Test Item Value Reference Range Interpretation Comments THYROID STIMULATING HORMONE 5.430 mcIU/ML 0.340-4.820 H (test code = TSH) CBC W/AUTO [id number] 07:55:00 Test Item Value Reference Range Interpretation [...] N NRBC#) UA RFLX MICR CULT IF [id number] 12:29:00 Test Item Value Reference Range Interpretation [...] culture: Suprapubic PainUA RFLX MICR CULT IF [id number] 12:29:00 Test Item Value Reference Range Interpretation [...] for culture: Suprapubic PainCOVID 19 Asymptomatic IH [id number] 22:09:00 Test Item Value Reference Range Interpretation [...] tent with COVID-19. - CT ABD PELVIS W/[id number] 21:10:00 Name: DORA JOSEPH [facility] : 1970 Age/S: 50 / M [address] Unit #: [id number] Loc: [place] [address] Phys: Evin Castellanos MD Acct: [id number] Dis Date: Status: REG ER PHONE #: [phone] Exam Date: 02/23/20202047 FAX #: Reason: diffuse abdomen pain and distention EXAMS: CPT: [id number] CT ABD PELVIS W/CONT 58105 EXAM: - CT ABD PELVIS W/CONT LOCATION: [...] This examination was performed according to our departmentaldose optimization program, which includes automated exposure control, adjustment of the mA and/or kVaccording to patient size, and/or use of iterative reconstruction technique. FINDINGS: LOWER THORAX:Clear. LIVER: No focal hepatic lesions or intrahepatic [...] 1 Signed Report (CONTINUED) Name: DORA JOSEPH [facility] : 1970 Age/S: 50 / M [address] Unit #: [id number] Loc: [place] [address] Phys: Evin Castellanos MD Acct: [id number] Dis Date: Status: REG ER PHONE #: [phone] Exam Date: 02/23/20202047 FAX #: Reason: diffuse abdomen pain and distention EXAMS: CPT: [id number] CT ABD PELVIS W/CONT 83258 <Continued> CT. No bowel wall thickening or [...] by: Marybel José M.D. CC: Susana Meza INSPECTOR ADV[employer]ED COMPOSITE; Carl Luevano MD Technologist:Rudy Zuniga, RT(R)(CT)(MRI) CTDI: DLP: Trnscb Date/Time: 02/23/2020 (2109) t.SDR.NG62Dycm Print D/T: S: 02/23/2020 (2112) PAGE 2 Signed Report- XR CHEST 1 [id number] 21:03:00 Name: DORA JOSEPH Thomson : 1970 Age/S: 50 / M [address] Unit #: [id number] Loc: [place] [address] Phys: Evin Castellanos MD Acct: [id number] Dis Date: Status: REG ER PHONE #: [phone] Exam Date: 02/23/20202055 FAX #: Reason: Code Sepsis EXAMS: CPT: [id number] XR CHEST 1 V 66679 Fluoro Time: DAP (Gy m2): Air Kerma (mGy): DICTATION LOCATION: H48 HISTORY: Male, 50years of age with Code Sepsis, abdomen pain [...] 2. Chronic colonic air distention unchanged. at 2102 Reported and signed by: Monica Quijano MD CC: Susana Meza INSPECTOR ADVANCED COMPOSITE; Carl Luevano MD PAGE 1 Signed Report Name: DORA JOSEPH [facility] : 1970 Age/S: 50 / M [address] Unit #: [id number] Loc: [place] [address] Phys: Evin Castellanos MD Acct: [id number] Dis Date:Status: REG ER PHONE #: [phone] Exam Date: 02/23/20202055 FAX #: Reason: Code Sepsis EXAMS: CPT: [id number] XR CHEST 1 V 75838 Fluoro Time: DAP (Gy m2): Air Kerma (mGy): <Continued> Technologist: Rudy Zuniga RT(R)(CT)(MRI) Trnscb Date/Time: 02/23/2020 (2102) Alanis Orig Print D/T: S:02/23/2020 (2106) PAGE 2 Signed ReportBASIC METABOLIC [id number] 20:02:00 Test Item Value Reference Range Interpretation [...] 8.5-10.1 N Completed by Nursing: NOHEPATIC FUNCTION [id number] 20:02:00 Test Item Value Reference Range Interpretation [...] N code = ALKP) Completed by Nursing: [id number] 20:02:00 Test Item Value Reference Range Interpretation Comments LIPASE (test code = LIP) 97 Unit/L 114-286 L Completed by Nursing: [id number] 20:02:00 Test Item Value Reference Range Interpretation [...] brittani yby method. Completed by Nursing: NOLACTIC [id number] 19:59:00 Test Item Value Reference Range Interpretation Comments LACTIC ACID (test code = LACT) 1.2 mmol/L 0.4-2.0 N CBC W/AUTO [id number] 19:46:00 Test Item Value Reference Range Interpretation [...] CRITERIA = MDIFF) - XR ABDOMEN 2 [id number] 06:22:00 Name: DORA JOSEPH [facility] : 1970 Age/S: 50 / M [address] Unit #: [id number] Loc: [place] [address] Phys: Leonidas Robertson MD Acct: [id number] Dis Date: Status: ADM INPHONE #: [phone] Exam Date: 02/19/2020 0440 FAX #: Reason: megacolon EXAMS: CPT: [id number] XR ABDOMEN 2 V 53211 Fluoro Time: DAP (Gy m2): Air Kerma (mGy): EXAM: Abdomen 2 views Location: H24 HISTORY: Megacolon. COMPARISON: 01/10/2020 FINDINGS: AP upright and supine views of the abdomen were obtained. There is marked gaseous distention of the colon followed to level the rectum. Multiple gas dilated loops of small bowel loops are seen centrally. There is no free intraperitoneal air. There is nodefinite organomegaly. No further radiopacities are seen within the abdomen. Since prior imaging there is been interval removal of drainage catheter. IMPRESSION: Marked dilation of colonic loops as well as small bowel loops. No free intraperitoneal air. at 0622 Reported and signed by: David Rodríguez M.D. CC: Leonidas Robertson MD; Coco Nova MD PAGE 1 Signed Report Name: DORA JOSEPH [facility] : 1970 Age/S: 50 / M [address] Unit #: [id number] Loc: [place] [address] Phys: Leonidas Robertson MD Acct: [id number] Dis Date: Status: ADM IN PHONE #: [phone] Exam Date: 02/19/2020 0440 FAX #: Reason: megacolon EXAMS: CPT: [id number] XR ABDOMEN 2 V 96660 Fluoro Time: DAP (Gy m2): Air Kerma (mGy): <Continued> Technologist: Carrie Barnett, RT(R)(CT) Trnscb Date/Time: 02/19/2020 (621) [id number] Orig Print D/T:S: 02/19/2020 (0658) PAGE 2 Signed ReportBASIC METABOLIC [id number] 05:52:00 Test Item Value Reference Range Interpretation [...] CA) 8.5 MG/DL 8.5-10.1 N CBC W/AUTO [id number] 05:40:00 Test Item Value Reference Range Interpretation [...] NO DIFF/SCN CRITERIA = MDIFF) BASIC METABOLIC [id number] 06:52:00 Test Item Value Reference Range Interpretation [...] CA) 8.3 MG/DL 8.5-10.1 L CBC W/AUTO [id number] 06:39:00 Test Item Value Reference Range Interpretation [...] code NO DIFF/SCN CRITERIA = MDIFF) Coronavirus 2018 nCoV [id number] 05:35:00 Test Item Value Reference Range Interpretation Comments Coronavirus 2018 nCoV Negative NEGATIVE Per ma nufacturer, Bedside (test code = negativ e [...] NA (test code = 139 mmol/L 135-145 6663925175) K (test code = 4.3 mmol/L 3.5-5 8305114604) CL (test code = 105 mmol/L 98-108 9100379759) CO2 TOTAL (test code = 30 mmol/L 23-31 0791990517) AGAP (test code = 2-16 9158144935) BUN (test code = 6 mg/dL 7-23 L 5354939366) GLUCOSE (test code = 94 mg/dL 70-110 1312936102) CREATININE (test code = 1.07 mg/dL 0.6-1.25 1404214778) CALCIUM (test code = 9.3 mg/dL 8.6-10.6 9823463163) eGFR Calculation mL/min/1.73m2 (Non-) (test code = 2089889466) eGFR Calculation mL/min/1.73m2 () (test code = 4928483110) GILBERTO (test code = GILBERTO) Association of [...] tests). Lab Interpretation Abnormal (test code = 75107-7) [facility]2020-[facility]-12 16:58:00 Test Item Value Reference Range Interpretation Comments MAGNESIUM (test code = 2662119630) 2.0 mg/dL 1.7-2.4 Lab Interpretation (test code = Normal 30686-2) [facility] [id number] 17:02:411. Interval worsening of air distended loops [...] with cecum measuring up to 15 cm. [facility] WITH [id number] 07:20:00 Test Item Value Reference Range Interpretation Comments WBC (test code = See_Comment L [Automated 3572-2) message] The sy stem which generated this result transmitted reference range : 4.20 - 10.70 10*3/?L. The reference range was not used to interpret this result as normal/abnormal . RBC (test code = See_Comment [Automated 960-8) message] The sy stem which generated this [...] RDW-SD (test code = 46.5 fL 38.5-51.6 89582-5) RDW-CV (test code = 13.9 % 12.1-15.4 788-0) PLT (test code = See_Comment L [Automated 777-3) message] The sy stem which generated this result transmitted reference range : 150 - 328 10*3/ ?L. The reference r meredith was not used to interpret this result as normal/abnormal . MPV (test code = 10.7 fL 9.8-13 72156-6) NRBC/100 WBC (test See_Comment [Automat ed code = 1178387635) message] The system which generated this result transmitted reference range : 0.0 - 10.0 /100 WBCs. The refer ence range was not u sed to interpret th is result as normal/abnormal . NRBC x10^3 (test code <0.01 See_Comment [Auto mated = 8406846018) message] The s ystem which generated this result transmitted reference range : 10*3/?L. The reference range was not used to interpret this result as normal/abnormal . GRAN MAT (NEUT) % 48.6 % (test code = 770-8) IMM GRAN % (test code 0.20 % = 3994449378) LYMPH % (test code = 39.6 % 736-9) MONO % (test code = 8.4 % 5905-5) EOS % (test code = 2.7 % 713-8) BASO % (test code = 0.5 % 706-2) GRAN MAT x10^3(ANC) 1.96 10*3/uL 1.99-6.95 L (test code = 6659495598) IMM GRAN x10^3 (test <0.03 0-0.06 code = 6904228504) LYMPH x10^3 (test code 1.60 10*3/uL 1.09-3.23 = 731-0) MONO x10^3 (test code 0.34 10*3/uL 0.36-1.02 L = 742-7) EOS x10^3 (test code = 0.11 10*3/uL 0.06-0.53 711-2) BASO x10^3 (test code <0.03 0.01-0.09 = 704-7) Lab Interpretation Abnormal (test code = 32390-7) [facility] METABOLIC PANEL (NA, K, CL, CO2, GLUCOSE, BUN, CREATININE, CA)2020-01-31 06:32:00 Test Item Value Reference Range Interpretation Comments NA (test code = 138 mmol/L 135-145 9579037464) K (test code = 4.2 mmol/L 3.5-5 Slight 2001143379) hemolysis CL (test code = 108 mmol/L 98-108 2646925415) CO2 TOTAL (test code 22 mmol/L 23-31 L = 9181121843) AGAP (test code = 2-16 0349471120) BUN (test code = 7 mg/dL 7-23 Slight 3435415352) hemolysis GLUCOSE (test code = 92 mg/dL 70-110 5672109008) CREATININE (test code 1.02 mg/dL 0.6-1.25 = 1167855896) CALCIUM (test code = 8.9 mg/dL 8.6-10.6 2165137829) eGFR Calculation mL/min/1.73m2 (Non-) (test code = 6222019563) eGFR Calculation mL/min/1.73m2 () (test code = 5646592545) GILBERTO (test code = GILBERTO) Association of [...] tests). Lab Interpretation Abnormal (test code = 19602-6) [facility] WITH [id number] 11:00:00 Test Item Value Reference Range Interpretation [...] RDW-SD (test code = 48.7 fL 38.5-51.6 04222-2) RDW-CV (test code = 14.4 % 12.1-15.4 788-0) PLT (test code = See_Comment L [Automated 777-3) message] The sy stem which generated this result transmitted reference range : 150 - 328 10*3/ ?L. The reference r meredith was not used to interpret this result as normal/abnormal . MPV (test code = 10.7 fL 9.8-13 54520-8) IPF % (test code = 5.1 % 1.2-10.7 Platelet count 0139482414) measured by fluorescence method. NRBC/100 WBC (test See_Comment [Automat ed code = 8820227216) message] The system which generated this result transmitted reference range : 0.0 - 10.0 /100 WBCs. The refer ence range was not u sed to interpret th is result as normal/abnormal . NRBC x10^3 (test code <0.01 See_Comment [Auto mated = 4193008553) message] The s ystem which generated this result transmitted reference range : 10*3/?L. The reference range was not used to interpret this result as normal/abnormal . SEG % (test code = 53 % 33-76 14910-4) BAND % (test code = 1 % 0-1 30536-9) LYMPH % (test code = 39 % 14-54 28720-7) MONO % (test code = 4 % 0-4 12629-7) EOS % (test code = 3 % 0-3 85066-0) ANC (test code = 1.93 10*3/uL 1.99-6.95 L 3120503013) Lab Interpretation Abnormal (test code = 58996-4) [facility] Metabolic Panel (NA, K, CL, CO2, GLUCOSE, BUN, CREATININE, CA)2020-01-29 10:23:00 Test Item Value Reference Range Interpretation Comments NA (test code = 138 mmol/L 135-145 6485711200) K (test code = 4.0 mmol/L 3.5-5 0207394797) CL (test code = 109 mmol/L 98-108 H 7684484185) CO2 TOTAL (test code = 27 mmol/L 23-31 1361516906) AGAP (test code = 2-16 1895753058) BUN (test code = 16 mg/dL 7-23 8914763788) GLUCOSE (test code = 81 mg/dL 70-110 6222589295) CREATININE (test code = 1.14 mg/dL 0.6-1.25 7612837629) CALCIUM (test code = 8.6 mg/dL 8.6-10.6 8411896447) eGFR Calculation mL/min/1.73m2 (Non-) (test code = 4663010274) eGFR Calculation mL/min/1.73m2 () (test code = 2324590966) GILBERTO (test code = GILBERTO) Association of [...] tests). Lab Interpretation Abnormal (test code = 22547-6) [facility] COVID-19 [id number] 04:27:00 Test Item Value Reference Range Interpretation Comments SARS-CoV-2 Rapid ID NOW Not Detected Not Detected (test code = 84475-6) GILBERTO (test code = GILBERTO) ID NOW COVID-19 Assay is an isothermal nucleic acid amplification test intended for the qualitative detection of nucleic acid from SARS-CoV-2 viral RNA in nasopharyngeal (INSPECTOR ADVANCED COMPOSITE) specimens. It is used under Emergency Use [...] indicated. Lab Interpretation Normal (test code = 77426-0) [facility] RegionalL[facility] Acid Whole [id number] 04:10:00 Test Item Value Reference Range Interpretation Comments LACTIC ACID (test code = 1.74 mmol/L 0.5-2.2 2037453273) [facility]COVID[facility] (ID NOW RAPID TESTING)2020-01-29 02:17:00 Test Item Value Reference Range Interpretation Comments SARS-CoV-2 Rapid ID NOW Not Detected Not Detected (test code = 21595-8) GILBERTO (test code = GILBERTO) ID NOW COVID-19 Assay is an isothermal nucleic acid amplification test intended for the qualitative detection of nucleic acid from SARS-CoV-2 viral RNA in nasopharyngeal (INSPECTOR ADVANCED COMPOSITE) specimens. It is used under Emergency Use [...] indicated. Lab Interpretation Normal (test code = 17804-6) [facility] RegionalUrinalysis2020-06-07 02:14:00 Test Item Value Reference Range Interpretation Comments APPEARANCE (test code = Clear Clear 3973852574) COLOR (test code = Dark Yellow Yellow A 1823521456) PH (test code = 4.8-8.0 6342382125) SP GRAVITY (test code = 1.003-1.030 H 5912889416) GLU U QUAL (test code = Normal Normal 3954239875) BLOOD (test code = 1+ Negative A 8470677660) KETONES (test code = 5 mg/dL Negative A 0531596384) PROTEIN (test code = Negative Negative 2887-8) UROBILIN (test code = Normal Normal 7086824347) BILIRUBIN (test code = Negative Negative 4300231240) NITRITE (test code = Negative Negative 4990081160) LEUK ROGER (test code = Negative Negative 3359486811) RBC/HPF (test code = See_Comment H [Autom ated 7096382464) message] The sy stem which generated this result transmitted reference range : 0 - 3 HPF. The reference range was not used to interpret this result as normal/abnormal . WBC/HPF (test code = See_Comment [Autom ated 9076577017) message] The sy stem which generated this result transmitted reference range : 0 - 5 HPF. The reference range was not used to interpret this result as normal/abnormal . BACTERIA (test code = Moderate Negative A 6423980468) MUCOUS (test code = Slight Negative LPF A 4210816260) AMORPHOUS (test code = Rare Rare HPF 4227754842) SQ EPITH (test code = <1 See_Comment [Auto mated 8073448598) message] The sy stem which generated this result transmitted reference range : <=2 HPF. The reference range was not used to interpret this result as normal/abnormal . CA OXALATE (test code = See_Comment H [Au tomated 3571677411) message] The sy stem which generated this result transmitted reference range : <=1 HPF. The reference range was not used to interpret this result as normal/abnormal . HYAL CAST (test code = See_Comment H [Aut omated 8853225967) message] The sy stem which generated this result transmitted reference range : <=2 LPF. The reference range was not used to interpret this result as normal/abnormal . ASCORBIC ACID (test Negative code = 7405719536) Lab Interpretation Abnormal (test code = 83449-6) [facility] RegionalCT ABDOMEN PELVIS W [id number] 00:25:08Persistent marked and severe dilatation of the [...] left colon/sigmoid junction. Noobstructing masses or lesions identifiedwith stool burden within thesigmoid. This may be [...] ALARA principle. FINDINGS:Atelectasis left lower lobe.Liver, pancreas, spleen, adrenal glands, kidneys are stable.There is severe dilatation of the transverse colon as seen on priorexamination, with transition at the left colon/sigmoid junction. Noobstructing masses or lesions identified with stool burden within thesigmoid. This may be functional.No abscess or free air. There is some free fluid within the cul-de-sac.No evidence of aortic aneurysm or dissection.Transverse colon dilated up to 11 cm. Overall, this is essentially stablecompared to prior examination.There are no appreciable acute bony abnormalities.IMPRESSIONPersistent marked and severe dilatation of the transvers e colon withoutfocal obstructing masses or lesions identified. This may be functional.Extent of distention is essentially stable compared to prior examination. [facility] (NA, K, CL, CO2, GLUCOSE, BUN, CREATININE, CA)2020-01-28 23:38:00 Test Item Value Reference Range Interpretation Comments NA (test code = 143 mmol/L 135-145 8472760117) K (test code = 4.2 mmol/L 3.5-5 9353110004) CL (test code = 111 mmol/L 98-108 H 9139361564) CO2 TOTAL (test code = 28 mmol/L 23-31 0067781056) AGAP (test code = 2-16 4980012183) BUN (test code = 15 mg/dL 7-23 1866725402) GLUCOSE (test code = 68 mg/dL 70-110 L 9492038659) CREATININE (test code = 1.32 mg/dL 0.6-1.25 H 3079051895) CALCIUM (test code = 9.0 mg/dL 8.6-10.6 3169872313) eGFR Calculation mL/min/1.73m2 (Non-) (test code = 0011074489) eGFR Calculation mL/min/1.73m2 () (test code = 3410342968) GILBERTO (test code = GILBERTO) Association of [...] tests). Lab Interpretation Abnormal (test code = 46098-3) [facility] RegionalHepatic Function Panel (ALB, T.PRO, BILI T, BU/BC, ALT, AST, ALK PHOS)2020-01-28 23:38:00 Test Item Value Reference Range Interpretation Comments TOTAL BILI (test code = 0387137412) 0.6 mg/dL 0.1-1.1 BILI UNCON (test code = 4261717512) 0.6 mg/dL 0.1-1.1 BILI CONJ (test code = 9091105266) 0.0 mg/dL 0-0.3 T PROTEIN (test code = 5540385712) 5.7 g/dL 6.3-8.2 L ALBUMIN (test code = 3080347618) 3.8 g/dL 3.5-5 ALK PHOS (test code = 8258688729) 37 U/L 34-122 ALTv (test code = 1742-6) 23 U/L 5-50 AST(SGOT) (test code = 9039328250) 25 U/L 13-40 Lab Interpretation (test code = Abnormal 72657-8) [facility] RegionalLipase [id number] 23:38:00 Test Item Value Reference Range Interpretation Comments LIPASE (test code = 1425546723) 62 U/L 0-220 Lab Interpretation (test code = Normal 31782-3) [facility] RegionalCB WITH [id number] 23:29:00 Test Item Value Reference Range Interpretation Comments WBC (test code = See_Comment [Automated 7790-2) message] The sy stem which generated this result transmitted reference range : 4.20 - 10.70 10*3/?L. The reference range was not used to interpret this result as normal/abnormal . RBC (test code = See_Comment L [Automated 169-8) message] The sy stem which generated this [...] RDW-SD (test code = 47.5 fL 38.5-51.6 61843-1) RDW-CV (test code = 14.3 % 12.1-15.4 788-0) PLT (test code = See_Comment [Automated 777-3) message] The sy stem which generated this result transmitted reference range : 150 - 328 10*3/ ?L. The reference r meredith was not used to interpret this result as normal/abnormal . MPV (test code = 10.6 fL 9.8-13 21715-3) NRBC/100 WBC (test See_Comment [Automat ed code = 6472932358) message] The system which generated this result transmitted reference range : 0.0 - 10.0 /100 WBCs. The refer ence range was not u sed to interpret th is result as normal/abnormal . NRBC x10^3 (test code <0.01 See_Comment [Auto mated = 8565701491) message] The s ystem which generated this result transmitted reference range : 10*3/?L. The reference range was not used to interpret this result as normal/abnormal . GRAN MAT (NEUT) % 50.1 % (test code = 770-8) IMM GRAN % (test code 0.20 % = 2768607103) LYMPH % (test code = 34.7 % 736-9) MONO % (test code = 12.5 % 5905-5) EOS % (test code = 1.8 % 713-8) BASO % (test code = 0.7 % 706-2) GRAN MAT x10^3(ANC) 2.28 10*3/uL 1.99-6.95 (test code = 1188842339) IMM GRAN x10^3 (test <0.03 0-0.06 code = 9085608898) LYMPH x10^3 (test code 1.58 10*3/uL 1.09-3.23 = 731-0) MONO x10^3 (test code 0.57 10*3/uL 0.36-1.02 = 742-7) EOS x10^3 (test code = 0.08 10*3/uL 0.06-0.53 711-2) BASO x10^3 (test code 0.03 10*3/uL 0.01-0.09 = 704-7) Lab Interpretation Abnormal (test code = 46913-1) [facility] METABOLIC [facility] (NA, K, CL, CO2, GLUCOSE, BUN, CREATININE, CA)2020-01-26 18:34:00 Test Item Value Reference Range Interpretation Comments NA (test code = 138 mmol/L 135-145 0426820151) K (test code = 3.7 mmol/L 3.5-5 1978291774) CL (test code = 108 mmol/L 98-108 9200478103) CO2 TOTAL (test code = 25 mmol/L 23-31 4352998236) AGAP (test code = 2-16 9976308574) BUN (test code = 9 mg/dL 7-23 8886336714) GLUCOSE (test code = 107 mg/dL 70-110 1256854328) CREATININE (test code 0.96 mg/dL 0.6-1.25 = 3512800127) CALCIUM (test code = 8.7 mg/dL 8.6-10.6 0894831007) eGFR Calculation mL/min/1.73m2 (Non-) (test code = 2021251979) eGFR Calculation mL/min/1.73m2 () (test code = 3487014983) GILBERTO (test code = GILBERTO) Association of [...] or urine or abnormalities in imaging tests). [facility] RegionalMagnesium [id number] 08:33:00 Test Item Value Reference Range Interpretation Comments MAGNESIUM (test code = 1.9 mg/dL 1.7-2.4 Sligh t hemolysis 0317542234) Lab Interpretation (test Normal code = 44684-3) [facility] RegionalXR [id number] 06:18:53 Redemonstration of marked gaseous distention of the transverse anddescending colon. RL: 460 AFC: 97480 Ordering physician: HELENE GRIFFIN INDICATION: Abdominal pain COMPARISON: CT the abdomen and pelvis dated 01/24/2020 FINDINGS:Supine AP views of the abdomen and pelvis. There isredemonstration of marked distention of the transverse and descendingcolon. [facility], Radiant Results Inft User - 01/26/2020 1:20 AM CDTOrdering physician: HELENE GRIFFININDICATION: Abdominal painCOMPARISON: CT the abdomen and pelvis dated 01/24/2020FINDINGS: Supine AP views of the abdomen and pelvis. There isredemonstration of marked distention of the transverse and descendingcolon.IMPRESSIONRedemonstration of marked gaseous distention of the transverse anddescending colon.RL: 460AFC: 95770Dtcwmzmqymyldu signed by Angeli Carrillo MD, PhD at 01/26/2020 1:18 AMUnHeref[facility] Phosphorus [id number] 10:11:00 Test Item Value Reference Range Interpretation Comments PHOSPHORUS (test code = 3081949251) 3.9 mg/dL 2.5-5 Lab Interpretation (test code = Normal 03667-8) [facility]COVID[facility] (ID NOW RAPID TESTING)2020-01-25 05:12:00 Test Item Value Reference Range Interpretation Comments SARS-CoV-2 Rapid ID NOW Not Detected Not Detected (test code = 31426-5) GILBERTO (test code = GILBERTO) ID NOW COVID-19 Assay is an isothermal nucleic acid amplification test intended for the qualitative detection of nucleic acid from SARS-CoV-2 viral RNA in nasopharyngeal (INSPECTOR ADVANCED COMPOSITE) specimens. It is used under Emergency Use [...] indicated. Lab Interpretation Normal (test code = 60564-9) [facility] RegionalLactic Acid Whole [id number] 04:34:00 Test Item Value Reference Range Interpretation Comments LACTIC ACID (test code = 0.89 mmol/L 0.5-2.2 6041935191) [facility] RegionalCT ABDOMEN PELVIS W [id number] 02:47:02Impression: Marked distention and dilatation of the [...] bowel as well. Rectal tubedecompression may be considered.[facility] XfgmclZuvakxhygq2704-41-33 01:51:00 Test Item Value Reference Range Interpretation Comments APPEARANCE (test code = Hazy Clear A 8672100299) COLOR (test code = Yellow Yellow 7131869833) PH (test code = 4.8-8.0 6699485874) SP GRAVITY (test code = 1.003-1.030 2373468297) GLU U QUAL (test code = Normal Normal 3225971735) BLOOD (test code = Negative Negative 7499910926) KETONES (test code = Negative Negative 2069098865) PROTEIN (test code = Negative Negative 2887-8) UROBILIN (test code = Normal Normal 6954495437) BILIRUBIN (test code = Negative Negative 6190410449) NITRITE (test code = Negative Negative 5880755366) LEUK ROGER (test code = Negative Negative 3272816298) RBC/HPF (test code = See_Comment H [Autom ated message] 7614595350) The system [employer] generated this result transmitted ref erence range: 0 - 3 HP F. The reference range was not used to int erpret this result as normal/abnormal . WBC/HPF (test code = See_Comment [Autom ated message] 2669977881) The system [employer] generated this result transmitted ref erence range: 0 - 5 HP F. The reference range was not used to int erpret this result as normal/abnormal . BACTERIA (test code = Negative Negative 8940483433) SQ EPITH (test code = <1 See_Comment [Auto mated message] 8456287191) The system [employer] generated this result transmitted ref erence range: <=2 HPF. The reference range was not used to int erpret this result as normal/abnormal . CA OXALATE (test code = See_Comment H [Au tomated message] 2323240952) The system [employer] generated this result transmitted ref erence range: <=1 HPF. The reference range was not used to int erpret this result as normal/abnormal . Lab Interpretation (test Abnormal code = 98184-6) [facility] Metabolic Panel (NA, K, CL, CO2, GLUCOSE, BUN, CREATININE, CA)2020-01-25 01:01:00 Test Item Value Reference Range Interpretation Comments NA (test code = 139 mmol/L 135-145 7403129631) K (test code = 4.6 mmol/L 3.5-5 Slight hemoly sis 0216717520) CL (test code = 107 mmol/L 98-108 2002675184) CO2 TOTAL (test 26 mmol/L 23-31 code = 4842575327) AGAP (test code = 2-16 2342538314) BUN (test code = 23 mg/dL 7-23 Slight hemo lysis 1666797180) GLUCOSE (test code 94 mg/dL 70-110 = 3512730788) CREATININE (test 1.13 mg/dL 0.6-1.25 code = 2606120253) CALCIUM (test code 8.9 mg/dL 8.6-10.6 = 3870373218) eGFR Calculation mL/min/1.73m2 (Non-) (test code = 2431729103) eGFR Calculation mL/min/1.73m2 () (test code = 7432176015) GILBERTO (test code = Association of GILBERTO) [...] or urine or abnormalities in imaging tests). [facility] (ALB, T.PRO, BILI T, BU/BC, ALT, AST, ALK PHOS)2020-01-25 01:01:00 Test Item Value Reference Range Interpretation Comments TOTAL BILI (test code = 4160841784) 0.7 mg/dL 0.1-1.1 BILI UNCON (test code = 1872839203) 0.6 mg/dL 0.1-1.1 BILI CONJ (test code = 5658116678) 0.0 mg/dL 0-0.3 T PROTEIN (test code = 7498561985) 6.2 g/dL 6.3-8.2 L ALBUMIN (test code = 3181190293) 4.1 g/dL 3.5-5 ALK PHOS (test code = 6301252357) 46 U/L 34-122 ALTv (test code = 1742-6) 27 U/L 5-50 AST(SGOT) (test code = 4456069590) 31 U/L 13-40 Lab Interpretation (test code = Abnormal 84452-6) [facility] [id number] 01:01:00 Test Item Value Reference Range Interpretation Comments LIPASE (test code = 0109758301) 246 U/L 0-220 H Lab Interpretation (test code = Abnormal 77764-8) [facility] WITH [id number] 00:49:00 Test Item Value Reference Range Interpretation Comments WBC (test code = See_Comment [Automated 3790-2) message] The sy stem which generated this [...] RDW-SD (test code = 46.8 fL 38.5-51.6 20354-4) RDW-CV (test code = 14.2 % 12.1-15.4 788-0) PLT (test code = See_Comment [Automated 767-3) message] The sy stem which generated this result transmitted reference range : 150 - 328 10*3/ ?L. The reference r meredith was not used to interpret this result as normal/abnormal . MPV (test code = 10.7 fL 9.8-13 04928-3) NRBC/100 WBC (test See_Comment [Automat ed code = 6369580694) message] The system which generated this result transmitted reference range : 0.0 - 10.0 /100 WBCs. The refer ence range was not u sed to interpret th is result as normal/abnormal . NRBC x10^3 (test code <0.01 See_Comment [Auto mated = 3852701301) message] The s ystem which generated this result transmitted reference range : 10*3/?L. The reference range was not used to interpret this result as normal/abnormal . GRAN MAT (NEUT) % 56.9 % (test code = 770-8) IMM GRAN % (test code 0.20 % = 9626632684) LYMPH % (test code = 31.2 % 736-9) MONO % (test code = 9.7 % 5905-5) EOS % (test code = 1.6 % 713-8) BASO % (test code = 0.4 % 706-2) GRAN MAT x10^3(ANC) 2.86 10*3/uL 1.99-6.95 (test code = 4360970082) IMM GRAN x10^3 (test <0.03 0-0.06 code = 7695428726) LYMPH x10^3 (test code 1.57 10*3/uL 1.09-3.23 = 731-0) MONO x10^3 (test code 0.49 10*3/uL 0.36-1.02 = 742-7) EOS x10^3 (test code = 0.08 10*3/uL 0.06-0.53 711-2) BASO x10^3 (test code <0.03 0.01-0.09 = 704-7) Lab Interpretation Abnormal (test code = 07676-5) [facility] XR ABDOMEN 1 [id number] 07:32:00 Name: DORA JOSEPH [facility] : 1970 Age/S: 49 / M [address] Unit #: [id number] Loc: [place] [address] Phys: Jay Mayo MD Acct: [id number] Dis Date: Status: ADM IN PHONE #: [phone] Exam Date: 01/10/2020 0658 FAX #: Reason: follow up colonic ileus EXAMS: CPT: [id number] XR ABDOMEN 1 V 89556 Fluoro Time: DAP (Gy m2): Air Kerma [...] PAGE 1 Signed Report Name: DORA JOSEPH [facility] : 1970Age/S: 49 / M [address] [place] [address] Unit #: [id number] Loc: [place] [address] Phys: Jay Mayo MD Acct: [id number] Dis Date: Status: ADM IN PHONE #: [phone] Exam Date: 01/10/2020 0658 FAX#: Reason: follow up colonic ileus EXAMS: CPT: [id number] XR ABDOMEN 1 V 32295 Fluoro Time: DAP (Gy m2): Air Kerma (mGy): <Continued> Technologist: Alexander De Leon RT(R)(CT) Trnscb Date/Time: 01/10/2020 (0732) Donna5 Orig Print D/T: S: 01/10/2020 (0736) PAGE 2 Signed Report COMPREHENSIVE METABOLIC [id number] 05:56:00 Test Item Value Reference Range Interpretation [...] TOTAL (test code = ALKP) CBC W/AUTO [id number] 05:42:00 Test Item Value Reference Range Interpretation [...] = NO DIFF/SCN CRITERIA MDIFF) BASIC METABOLIC [id number] 06:59:00 Test Item Value Reference Range Interpretation [...] code = CA) 8.5 MG/DL 8.5-10.1 N [id number] 06:59:00 Test Item Value Reference Range Interpretation Comments MAGNESIUM (test code = MAG) 2.2 MG/DL 1.8-2.4 PROTHROMBIN [id number] 06:39:00 Test Item Value Reference Range Interpretation Comments PT PATIENT (test code = PTP) 13.1 SECONDS 9.3-12.9 H INTERNATIONAL NORMAL RATIO 1.16 INR Unit 0.8-1.2 N (test code = INR) CBC W/AUTO [id number] 06:22:00 Test Item Value Reference Range Interpretation [...] DIFF/SCN CRITERIA MDIFF) - XR ABDOMEN 1 [id number] 05:39:00 Name: DORA JOSEPH [facility] : 1970 Age/S: 49 / M [address] Unit #: [id number] Loc: [place] [address] 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 Acct: [id number] Dis Date: Status: ADM IN PHONE #: [phone] Exam Date: 01/09/2020522 FAX #: Reason: colonic ileus/obstruction EXAMS: CPT: [id number] XR ABDOMEN 1 V 56454 Fluoro Time: DAP (Gy m2): Air Kerma (mGy): Exam: KUB. Location: H 12 History: colonic ileus/obstruction COMPARISON: 01/08/2020 Findings: A supine view of the abdomen demonstrates no change has occurred in the dilatation of the distal colon. No organomegaly, abnormal masses or calcifications are seen. No pneumatosis or free air is present. Impression: Stable abdomen. at 0539 Reported and signed by: Teo Do M.D. CC: Ander Solano; Mark Perea MD PAGE 1 Signed Report [facility] 1970 Age/S: 49 / M [address] Unit #: [id number] Loc: [place] [address] 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 Acct: [id number] Dis Date: Status: ADM IN PHONE #: [phone] Exam Date: 01/09/2020522 FAX #: Reason: colonic ileus/obstruction EXAMS: CPT: [id number] XR ABDOMEN 1 V 31167 Fluoro Time: DAP (Gy m2): Air Kerma (mGy): <Continued> Technologist: Carrie Barnett, RT(R)(CT) Trnscb Date/Time: 01/09/2020 (0539) carmenJUDSONFC Orig Print D/T: S: 01/09/2020 (0571) PAGE 2 Signed ReportCoronavirus 2019 nCoV [id number] 22:38:00 Test Item Value Reference Range Interpretation Comments Coronavirus 2019 nCoV Bedside (test Negative Negative code = [id number]) Emergent procedure? YESCoronavirus 2019 nCoV [id number] 22:38:00 Test Item Value Reference Range Interpretation Comments Coronavirus 2019 nCoV Bedside (test Negative Negative code = [id number]) Emergent procedure? YESBASIC METABOLIC [id number] 18:42:00 Test Item Value Reference Range Interpretation [...] CA) 8.5 MG/DL 8.5-10.1 N CBC W/AUTO [id number] 10:50:00 Test Item Value Reference Range Interpretation [...] = NO DIFF/SCN CRITERIA MDIFF) COMPREHENSIVE METABOLIC [id number] 10:46:00 Test Item Value Reference Range Interpretation [...] 50-136 N TOTAL (test code = ALKP) [id number] 10:46:00 Test Item Value Reference Range Interpretation Comments MAGNESIUM (test code = MAG) 2.6 MG/DL 1.8-2.4 H COMPREHENSIVE METABOLIC [id number] 10:34:00 Test Item Value Reference Range Interpretation [...] TOTAL (test Unit/L 50-136 code = ALKP) [id number] 10:34:00 Test Item Value Reference Range Interpretation Comments MAGNESIUM (test code = MAG) MG/DL 1.8-2.4 - XR ABDOMEN 1 [id number] 08:28:00 Name: DORA JOSEPH [facility] : 1970 Age/S: 49 / M [address] [facility] Unit #: [id number] Loc: [place] [address] Phys: Yas Edwards MD Acct: [id number] Dis Date: Status: ADM IN PHONE #: [phone] Exam Date: 01/08/2020509 FAX #: Reason: ileus EXAMS: CPT: [id number] XR ABDOMEN 1 V 20278 Fluoro Time: DAP (Gy m2): Air Kerma (mGy): KUB Location T 18 INDICATION: Ileus, bowel obstruction Comparison 01/07/2020 and 01/06/[address] Significant gaseous distention of the colon, may have increased slightly from the prior studies. Apparent minimal small bowel gas inthe mid abdomen. IMPRESSION: Generalized ileus versus distal obstruction. at 0828 Reported and signed by: Bernardo Ochoa M.D. CC: Mark Perea MD; Yas Edwards MD PAGE 1 Signed Report Name: DORA JOSEPH [facility] : 1970 Age/S: 49 / M [address] [facility] Unit #: [id number] Loc: [place] [address] Phys: Berta Edwards Acct: [id number] Dis Date: Status: ADM IN PHONE #: [phone] Exam Date: 01/08/202010 FAX#: Reason: ileus EXAMS: CPT: [id number] XR ABDOMEN 1 V 27591 Fluoro Time: DAP (Gy m2): Air Kerma (mGy): <Continued> Technologist: Carrie Barnett, RT(R)(CT); ... Trnscb Date/Time: 01/08/2020 (08) t.FLEXR.JTM Orig Print D/T: S: 01/08/2020 (0137) PAGE 2 Signed ReportCOMPREHENSIVE METABOLIC [id number] 07:08:00 Test Item Value Reference Range Interpretation [...] 50-136 L TOTAL (test code = ALKP) [id number] 07:08:00 Test Item Value Reference Range Interpretation Comments MAGNESIUM (test code = MAG) 1.3 MG/DL 1.8-2.4 L COMPREHENSIVE METABOLIC [id number] 05:16:00 Test Item Value Reference Range Interpretation [...] 50-136 L TOTAL (test code = ALKP) [id number] 05:16:00 Test Item Value Reference Range Interpretation Comments MAGNESIUM (test code = MAG) 1.3 MG/DL 1.8-2.4 L CBC W/AUTO [id number] 05:02:00 Test Item Value Reference Range Interpretation [...] (test code = NO DIFF/SCN CRITERIA MDIFF) [id number] 16:51:00 Test Item Value Reference Range Interpretation Comments MAGNESIUM (test code = MAG) 2.3 MG/DL 1.8-2.4 N FE W/TOTAL IRON BINDING CAP.2020-01-07 16:51:00 Test Item Value Reference Range Interpretation Comments SERUM IRON (test code = IRON) 38 mcG/DL 65-175 L TOTAL IRON BINDING CAPACITY (test 322 mcG/DL 250-450 N code = TIBC) IRON SATURATION (test code = 12 % calc 12-57 N FESAT) [id number] 16:51:00 Test Item Value Reference Range Interpretation Comments FERRITIN (test code = DAVID) 17.6 NG/ML 5.0-323.0 N CALCIUM [id number] 16:50:00 Test Item Value Reference Range Interpretation Comments CALCIUM IONIZED (test code = NAVEED) 1.12 mmol/L 1.12-1.32 N - XR ABDOMEN 1 [id number] 10:29:00 Name: DORA JOSEPH [facility] : 1970 Age/S: 49 / M [id number] [place] [address] Unit #: [id number] Loc: [place] [address] Phys: Verona Frost PA-C Acct: [id number] Dis Date: Status: ADM IN PHONE #: [phone] Exam Date: 01/07/2020 0712 FAX #: Reason: reassess SBO EXAMS: CPT: [id number] XR ABDOMEN 1 V 91599 Fluoro Time: DAP (Gy m2): Air Kerma [...] PAGE 1 Signed Report Name: DORA JOSEPH [facility] : 1970 Age/S: 49 / M [id number] [place] [address] Unit #: [id number] Loc: [place] [address] Phys:Verona Frost PA-C Acct: [id number] Dis Date: Status: ADM IN PHONE #: [phone] Exam Date: 01/07/2020 0712 FAX #: Reason: reassess SBO EXAMS: CPT: [id number] XR ABDOMEN 1 V 85799 Fluoro Time: DAP (Gym2): Air Kerma (mGy): <Continued> Technologist: Alexander De Leon RT(R)(CT) Trnscb Date/Time: 01/07/2020 (1029) Candido.AGV Orig Print D/T: S: 01/07/2020 (9569) PAGE 2 Signed ReportBASIC METABOLIC PANEL 2020-01-07 [...] CA) 5.4 MG/DL 8.5-10.1 LL CBC W/AUTO [id number] 06:49:00 Test Item Value Reference Range Interpretation [...] = NO DIFF/SCN CRITERIA MDIFF) COMPREHENSIVE METABOLIC [id number] 06:10:00 Test Item Value Reference Range Interpretation [...] TOTAL (test code = ALKP) CBC W/AUTO [id number] 05:52:00 Test Item Value Reference Range Interpretation [...] DIFF/SCN CRITERIA MDIFF) - XR ABDOMEN 1 [id number] 01:30:00 Name: DORA JOSEPH [facility] : 1970 Age/S: 49 / M [address] Unit #: [id number] Loc: [place] [address] Phys: Ted Coleman [employer] Acct: [id number] Dis Date: Status: ADM INPHONE #: [phone] Exam Date: 01/06/2020 0100 FAX #: Reason: NG Tube Placement Verification EXAMS: CPT: [id number] XR ABDOMEN 1 V 37115 Fluoro Time: DAP (Gy m2): Air Kerma (mGy): Exam: KUB. Location:H 12 History: NG Tube Placement Verification Findings: A supine view of the abdomen demonstrates gaseous distention of the colon. A nasogastric tube is in place, the tip is in the stomach. No organomegaly, abnormal masses or calcifications are seen. No pneumatosis or free air is present. Impression: Satisfactory nasogastric tube placement. Electronically Signed by Renée Do on at 0130 Reported and signed by: Teo Do M.D. CC: Mark Perea MD; Ted Coleman [employer] PAGE 1 Signed Report Name: DORA JOSEPH [facility] : 1970 Age/S: 49 / M [address] [address] Unit #: [id number] Loc: [place] [address] Phys: Ted Coleman [employer] Acct: [id number] Dis Date: Status: ADM IN PHONE #: [phone] Exam Date: 01/06/2020 0100 FAX #: Reason: NGTube Placement Verification EXAMS: CPT: [id number] XR ABDOMEN 1 V 77823 Fluoro Time: DAP (Gy m2): AirKerma (mGy): <Continued> Technologist: RT Tatum(R) Trnscb Date/Time: 01/06/2020 (0130)RafatR.FC Orig Print D/T: S: 01/06/2020 (0132) PAGE 2 Signed Report- CT ABD PELVIS W/O [id number] 19:42:00 [place]: St: REG -- Name: DORA JOSEPH [facility] : 1970 Age/S: 49/M [address] [facility] [address] Unit: [id number] Loc: [place], [place]: [place] [address] Acct: [id number] Dis Date: Status: REG ER PHONE #: [phone] Exam Date: 12/13/20191924 FAX #: [phone] Reason: pain EXAMS: CPT CODE: [id number] CT ABD PELVIS W/O CONT 23482 Examination: CT scan abdomen and pelvis without contrast. Location code: H 60. TECHNIQUE: Multiple axial images of the abdomen and pelvis were obtainedwithout intravenous administration of contrast with sagittal and coronal reconstructions. CT exam was performed using automated dose reduction. COMPARISON: 02/28/2013. Discussion: Clinical history is significant for abdominal pain. No radiopaque renal calculi identified. There is no evidence for hydronephrosis. No radiopaque gallstones are identified. Given the lack of intravenous contrast and limitations of the study secondary to lack of intravenous contrast the solid organs are grossly unremarkable.No enlarged retroperitoneal, pelvic or inguinal adenopathy is [...] SUJATA ALMANZAR Trnscrd Dt/Tm: 12/13/2019 (1941) GarettVR5 Orig Prin t D/T: S: 12/13/2019 (1945 PAGE 1 Signed ReportBASIC METABOLIC [id number] 18:49:00 Test Item Value Reference Range Interpretation [...] code = CA) 8.6 mg/dl 8.0-10.5 N [id number] 18:49:00 Test Item Value Reference Range Interpretation Comments LIPASE (test code = LIP) 97 Units/L 65.0-230.0 N CBC W/AUTO [id number] 18:38:00 Test Item Value Reference Range Interpretation [...] K/mm3 0.0-0.2 N - XR CHEST 1 [id number] 18:36:00 [place]: St: PRE -- Name: DORA JOSEPH [facility] : 1970 Age/S: 49/M [address] [place] [address] [facility] Unit #: [id number] Loc: [place], [place] Phys: [place] [address] Acct: [id number] Dis Date: Status: PRE ER PHONE #: [phone] Exam Date: 12/13/20191821 FAX #: [phone] Reason: SOB EXAMS: CPT CODE: [id number] XR CHEST 1 V 38716 Examination: One view chest x-ray Location code: H60 Comparison: None Discussion: Clinical history is remarkable for shortness of breath and weakness. Heart is normal in size. Lungs are clear of consolidating infiltrates. No effusions identified. There is significant distention of the colon. Impression: 1. Normal one view chest x-ray. 2. Colonic distention. at 1836 Reported and signed by: SHANEL EDWARDS CC:Technologist: AMBER GENTILE Trnscrd Date/Time/By: 12/13/2019 (1835) : By: GarettVR5 PAGE 1 SignedReport [place]: St: PRE --- Name: DORA JOSEPH [facility] : 1970 Age/S: 49/M [address] [place] [address] [facility] Unit #: [id number] Loc: [place], [place]: [place] [address] Acct: [id number] Dis Date: Status: PRE ER PHONE #: [phone] Exam Date: 12/13/20191821 FAX #: [phone] Reason: SOB EXAMS: CPT CODE: [id number] XR CHEST 1 V 64332 (Continued) Orig Print D/T: S: 12/13/2019 (1839) PAGE 2 Signed [facility]ME[facility] W/PLT COUNT & AUTO [id number] 08:02:00 Test Item Value Reference Range Interpretation [...] Received comment: User comments: Slide comments:BASIC METABOLIC [id number] 07:34:00 Test Item Value Reference Range Interpretation [...] S NOT APPLICABLE FOR DIALYSIS PATIEN TS. [id number] 07:26:00 Test Item Value Reference Range Interpretation Comments PHOSPHORUS (BEAKER) (test code = 3.1 mg/dL 2.3-4.7 604) [id number] 07:26:00 Test Item Value Reference Range Interpretation Comments MAGNESIUM (BEAKER) (test code = 1.6 mg/dL 1.6-2.6 627) RAD, ABDOMEN/KUB, 1 VIEW [id number] 07:04:00Reason for exam:->ileusFINAL REPORT Abdomen , one [...] MDReport Verified Date/Time: 04/03/2019 07:04:46 Reading Location: [address] Ortho Consult Reading Room BASIC METABOLIC [id number] 06:47:00 Test Item Value Reference Range Interpretation [...] code = 413) URINALYSIS WITH MICROSCOPIC IF [id number] 22:01:00 Test Item Value Reference Range Interpretation [...] 463) SOURCE(BEAKER) (test code = 2795) URINALYSIS [id number] 22:01:00 Test Item Value Reference Range Interpretation Comments RBC UA (BEAKER) (test code = 519) 18 /HPF WBC UA (BEAKER) (test code = 520) 1 /HPF CALCIUM OXALATE CRYSTALS (BEAKER) Occasional (test code = 518) [id number] 05:49:00 Test Item Value Reference Range Interpretation Comments PHOSPHORUS (BEAKER) (test code = 2.5 mg/dL 2.3-4.7 604) [id number] 05:49:00 Test Item Value Reference Range Interpretation Comments MAGNESIUM (BEAKER) (test code = 1.7 mg/dL 1.6-2.6 627) BASIC METABOLIC [id number] 05:49:00 Test Item Value Reference Range Interpretation [...] (BEAKER) (test code = 413) BASIC METABOLIC [id number] 06:19:00 Test Item Value Reference Range Interpretation [...] S NOT APPLICABLE FOR DIALYSIS PATIEN TS. [id number] 06:10:00 Test Item Value Reference Range Interpretation Comments MAGNESIUM (BEAKER) 1.8 mg/dL 1.6-2.6 Specimen slightly (test code = 627) hemolyzed [id number] 06:10:00 Test Item Value Reference Range Interpretation [...] (BEAKER) (test code = 413) BASIC METABOLIC [id number] 04:57:00 Test Item Value Reference Range Interpretation [...] S NOT APPLICABLE FOR DIALYSIS PATIEN TS. [id number] 04:55:00 Test Item Value Reference Range Interpretation Comments PHOSPHORUS (BEAKER) (test code = 2.6 mg/dL 2.3-4.7 604) [id number] 04:55:00 Test Item Value Reference Range Interpretation Comments MAGNESIUM (BEAKER) (test code = 1.8 mg/dL 1.6-2.6 627) CT, [id number] 14:16:00FINAL REPORT TECHNIQUE: CT of the abdomen [...] Pope MDReport Verified Date/Time: 03/29/2019 14:16:01Reading Location: [facility] C013Y CT Body Reading Room , ABDOMEN/KUB, 1 VIEW [id number] 10:23:00Reason for exam:->evaluate ileusFINAL REPORT Technique: Supine [...] Urbinaeport Verified Date/Time: 03/29/2019 10:23:29 Reading Location: [facility] Reading Room CBC (HEMOGRAM ONLY)2019-03-29 08:10:00 [...] WBC 0-0 (BEAKER) (test code = 413) [id number] 06:20:00 Test Item Value Reference Range Interpretation Comments PHOSPHORUS (BEAKER) (test code = 2.6 mg/dL 2.3-4.7 604) [id number] 06:20:00 Test Item Value Reference Range Interpretation Comments MAGNESIUM (BEAKER) (test code = 2.0 mg/dL 1.6-2.6 627) BASIC METABOLIC [id number] 06:20:00 Test Item Value Reference Range Interpretation [...] TS. RAD, ABDOMEN SERIES W/ UPRIGHT PA [id number] 22:18:00Reason for exam:- >eval ileusFINAL REPORT CLINICAL [...] with CT abdomen pelvis. Signed: Jian Powers Verified Date/Time: 03/28/2019 22:18:50 RAD, ABDOMEN/KUB, 1 VIEW [id number] 11:23:00Reason for exam:->abdominal distensionShould this be performed [...] transition point is identified. Signed: Candido Ontiveros Verified Date/Time: 03/28/2019 11:23:34 Reading Location: [facility] Radiology Reading Room TISSUE [id number] 09:00:00Surgical Pathology Report Case: [id number] Authorizing Provider: Graciela Garrison MD Collected: 03/25/2019 1133 Ordering Location: [facility] Received: 03/25/2019 1527 SERVICES Pathologist: [...] FOR MALIGNANCY Signing Pathologist Direct Phone Line: [phone] signed by Priyanka Celaya MD on 03/28/2019 at 9:00 [id number] and postop diagnosis: ileostomy statusA. End ileostomy; B. Appendix A. Received fresh labeled with the patient's name, accession number and "end ileostomy"is an unoriented segment of small bowel measuring 4 cm in length and 5 cm in diameter with a minimalamount of attached mesentery. Also received is a [...] mentioned segment of small bowel are focal a reas of mucosal hemorrhage. Skin is not grossly identified on either segment. The mucosa is slightlyedematous. No gross lesions are identified. Lymph nodes are not identified in the mesentery. Director Strategy sections are submitted. Section code: A, customer solutions representative section of each end of first mentioned segment of small bowel; A2, customer solutions representative of first mentioned segment of small bowel mucosa; A3, area of hemorrhagic mesentery of second mentioned segment of mucosa; A4, customer solutions representative of hemorrhagic mucosa at open end of second portion of small bowel; A5, customer solutions representative of stapled margin from secondmentioned segment of small bowel, en face. B. Received fresh labeled with the patient's name, accessi on number and "appendix" is an intact appendix measuring 3.5 cm in length and 0.6 cm in diameter which has a moderate amount of attached mesoappendix. The serosa is pink and smooth. The proximal end iscauterized. The specimen is serially sectioned to reveal a abad, smooth mucosa. No fecaliths are present. The wall thickness is 0.2 cm. No gross lesions are identified. Director Strategy sections are submitted. Section code: B1, proximal margin en face and tip; B2, customer solutions representative cross section. CG/pl Performed.[id number] 06:23:00 Test Item Value Reference Range Interpretation Comments PHOSPHORUS (BEAKER) (test code = 2.7 mg/dL 2.3-4.7 604) [id number] 06:23:00 Test Item Value Reference Range Interpretation Comments MAGNESIUM (BEAKER) (test code = 1.9 mg/dL 1.6-2.6 627) BASIC METABOLIC [id number] 06:23:00 Test Item Value Reference Range Interpretation [...] S NOT APPLICABLE FOR DIALYSIS PATIEN TS. [id number] 08:20:00 Test Item Value Reference Range Interpretation Comments PHOSPHORUS (BEAKER) (test code = 2.6 mg/dL 2.3-4.7 604) [id number] 08:20:00 Test Item Value Reference Range Interpretation Comments MAGNESIUM (BEAKER) (test code = 1.8 mg/dL 1.6-2.6 627) BASIC METABOLIC [id number] 08:20:00 Test Item Value Reference Range Interpretation [...] S NOT APPLICABLE FOR DIALYSIS PATIEN TS. [id number] 06:06:00 Test Item Value Reference Range Interpretation Comments PHOSPHORUS (BEAKER) (test code = 4.1 mg/dL 2.3-4.7 604) [id number] 06:06:00 Test Item Value Reference Range Interpretation Comments MAGNESIUM (BEAKER) (test code = 1.8 mg/dL 1.6-2.6 627) BASIC METABOLIC [id number] 06:06:00 Test Item Value Reference Range Interpretation [...] S NOT APPLICABLE FOR DIALYSIS PATIEN TS. [id number] 06:03:00 Test Item Value Reference Range Interpretation Comments PHOSPHORUS (BEAKER) (test code = 4.2 mg/dL 2.3-4.7 604) [id number] 06:03:00 Test Item Value Reference Range Interpretation Comments MAGNESIUM (BEAKER) (test code = 2.0 mg/dL 1.6-2.6 627) BASIC METABOLIC [id number] 06:03:00 Test Item Value Reference Range Interpretation [...] WBC 0-0 (BEAKER) (test code = 413) [id number] 05:52:00 Test Item Value Reference Range Interpretation Comments PHOSPHORUS (BEAKER) (test code = 4.2 mg/dL 2.3-4.7 604) [id number] 05:52:00 Test Item Value Reference Range Interpretation Comments MAGNESIUM (BEAKER) (test code = 1.9 mg/dL 1.6-2.6 627) BASIC METABOLIC [id number] 05:52:00 Test Item Value Reference Range Interpretation [...] S NOT APPLICABLE FOR DIALYSIS PATIEN TS. [id number] 06:51:00 Test Item Value Reference Range Interpretation Comments PHOSPHORUS (BEAKER) (test code = 4.3 mg/dL 2.3-4.7 604) [id number] 06:51:00 Test Item Value Reference Range Interpretation Comments MAGNESIUM (BEAKER) (test code = 2.0 mg/dL 1.6-2.6 627) BASIC METABOLIC [id number] 06:51:00 Test Item Value Reference Range Interpretation [...] 0-0 (BEAKER) (test code = 413) TISSUE [id number] 11:50:00Surgical Pathology Report Case: [id number] Authorizing Provider: Mela Larson MD Collected: 03/18/2019 1827 Ordering Location: [facility] Received: 03/21/2019 0823 SERVICES Pathologist: Jordan Celaya MD Specimen: Small Bowel, NOS A. SMALL BOWEL, ILEOSTOMY PROLAPSE, TAKEDOWN: - ANASTOMOSIS SITE WITH ACTIVE CHRONIC INFLAMMATION AND FOCAL ISCHEMIC CHANGES - MUCOSAL RESECTION MARGINS, NEGATIVE FOR MALIGNANCY - ONE BENIGN LYMPH NODE (0/1) - NEGATIVE FOR DYSPLASIA OR MALIGNANCYSigning Pathologist Direct Phone Line: [phone] signed by Jordan Celaya MDon 03/22/2019 at 11:50 [id number] of ileostomyReceived in a container labeled "small [...] 0.5 to 1.2 cm in greatest dimension. Director Strategy sections are submitted as follows: A1-A2, mucosal resection margin, en face; A3-A6, customer solutions representative sections of the possible ostomy stump; A7-A11, serial customer solutions representative sections from mucosal resection margin to the possible ostomy stump; A12, two lymph nodes. TH/plPerformed.[id number] 06:58:00 Test Item Value Reference Range Interpretation Comments PHOSPHORUS (BEAKER) (test code = 3.8 mg/dL 2.3-4.7 604) [id number] 06:58:00 Test Item Value Reference Range Interpretation Comments MAGNESIUM (BEAKER) (test code = 2.0 mg/dL 1.6-2.6 627) BASIC METABOLIC [id number] 06:58:00 Test Item Value Reference Range Interpretation [...] PATIEN TS. CBC W/PLT COUNT & AUTO [id number] 05:42:00 Test Item Value Reference Range Interpretation [...] PERCENT (BEAKER) (test code = 2801) [place], [id number] 17:42:00Reason for exam:->evaluate for colon stricture as [...] Number of images obtained: 11 Signed: Shanelle Lopezort Verified Date/Time: 03/21/2019 17:42:21 Reading Location: [address] Reading Room [id number] 03:58:00 Test Item Value Reference Range Interpretation Comments PHOSPHORUS (BEAKER) (test code = 3.0 mg/dL 2.3-4.7 604) [id number] 03:58:00 Test Item Value Reference Range Interpretation Comments MAGNESIUM (BEAKER) (test code = 2.0 mg/dL 1.6-2.6 627) BASIC METABOLIC [id number] 03:58:00 Test Item Value Reference Range Interpretation Comments SODIUM (BEAKER) 137 meq/L 136-145 (test code = 381) POTASSIUM (BEAKER) 4.0 meq/L 3.5-5.1 (test code = 379) CHLORIDE (BEAKER) 104 meq/L 98-107 (test code = 382) CO2 (BEAKER) (test 29 meq/L 22-29 code = 355) BLOOD UREA NITROGEN 10 [...] PATIEN TS. CBC W/PLT COUNT & AUTO [id number] 03:20:00 Test Item Value Reference Range Interpretation [...] (BEAKER) (test code = 2801) BASIC METABOLIC [id number] 06:26:00 Test Item Value Reference Range Interpretation [...] S NOT APPLICABLE FOR DIALYSIS PATIEN TS. [id number] 06:05:00 Test Item Value Reference Range Interpretation Comments PHOSPHORUS (BEAKER) (test code = 2.2 mg/dL 2.3-4.7 L 604) [id number] 06:05:00 Test Item Value Reference Range Interpretation Comments MAGNESIUM (BEAKER) (test code = 2.0 mg/dL 1.6-2.6 627) CBC W/PLT COUNT & AUTO [id number] 05:25:00 Test Item Value Reference Range Interpretation [...] 0-1 PERCENT (BEAKER) (test code = 2801) [id number] 04:31:00 Test Item Value Reference Range Interpretation Comments PHOSPHORUS (BEAKER) (test code = 3.7 mg/dL 2.3-4.7 604) [id number] 04:31:00 Test Item Value Reference Range Interpretation Comments MAGNESIUM (BEAKER) (test code = 1.9 mg/dL 1.6-2.6 627) BASIC METABOLIC [id number] 04:31:00 Test Item Value Reference Range Interpretation [...] PATIEN TS. CBC W/PLT COUNT & AUTO [id number] 04:15:00 Test Item Value Reference Range Interpretation [...] 0-1 PERCENT (BEAKER) (test code = 2801) [id number] 06:41:00 Test Item Value Reference Range Interpretation Comments PHOSPHORUS (BEAKER) (test code = 3.1 mg/dL 2.3-4.7 604) [id number] 06:41:00 Test Item Value Reference Range Interpretation Comments MAGNESIUM (BEAKER) (test code = 1.9 mg/dL 1.6-2.6 627) BASIC METABOLIC [id number] 06:41:00 Test Item Value Reference Range Interpretation [...] PATIEN TS. CBC W/PLT COUNT & AUTO [id number] 06:36:00 Test Item Value Reference Range Interpretation [...] PERCENT (BEAKER) (test code = 2801) CT, [id number] 17:04:00No PO contrastFINAL REPORT ABDOMINAL AND PELVIS [...] MDReport Verified Date/Time: 03/17/2019 17:04:19 Reading Location: [address] Body Reading Room XR ABDOMEN 2 [id number] 09:03:45XR ABDOMEN 2 VIEWSLOCATION: [id number]: Colstomy ProlapseCOMPARISON: Chest radiograph 04/15/2017, CT of [...] Nonspecific, nonobstructive bowel gas pattern.XR CHEST 1 [id number] 11:32:15EXAM: CHEST ONE VIEWINDICATION: Chest painCOMPARISON: None availableTECHNIQUE: AP view of the chest.FINDINGS: The cardiomediastinal silhouette is normal. The lungs are clearbilaterally. No pneumothoraxor pleural effusion is identified. Theosseous structures are unremarkable.IMPRESSION: No acute cardiopulmonary process.LOCATION: [id number] Type and [id number] 21:21:00 Test Item Value Reference Range Interpretation Comments ABO type (test code = ABO) O Rh Type (test code = RH) Positive Comprehensive Metabolic [id number] 20:36:00 Test Item Value Reference Range Interpretation [...] ars ofage have not been validated by e MDRD study and shoul d be interpretedwith caution.eGFR Re sult Interpretation: eGFR > or = 60 is in t he Normal RangeeGF R < 60 may mean kidney diseaseeGFR < 1 5 may mean kidney failureRange s recommended by the National Kidney Foundation,http ://nkd ep.nih.gov Alcohol/Ethanol, [id number] 20:36:00 Test Item Value Reference Range Interpretation Comments Alcohol, Ethyl <0.01 g/dL 0.00-0.01 N Intoxicated 0.080 g/dL (test code = ETOH) or more Prothrombin [id number] 20:00:00 Test Item Value Reference Range Interpretation Comments PT (test code = PT) 10.10 seconds 9.78-13.35 N INR (test code = INR) 0.88 Ratio 0.6-1.2 N Partial Thromboplastin [id number] 20:00:00 Test Item Value Reference Range Interpretation Comments aPTT (test code = PTT) 31.50 seconds 24.39-37.25 N CBC with [id number] 19:50:00 Test Item Value Reference Range Interpretation [...] code = ALYMPH) 2.2 K/cumm 0.5-4.6 N [place] Abs (test code = AMONO) 0.4 K/cumm 0.0-1.2 N Eos Abs (test code = AEOS) 0.17 K/cumm 0.00-0.74 N Baso Abs (test code = ABASO) 0.0 K/cumm 0.00-0.21 N [id number]& PELVIS W/O [id number] 17:36:28CT ABDOMEN AND PELVIS WITHOUT CONTRAST.CLINICAL HISTORY: [...]
--- NOTE | 2022-04-30 19:02 | EDPHYS ---
Physician Documentation [facility] Name: Rico Mcneill Age: 52 yrs Sex: Male : 1970 Arrival Date: 04/30/2022 Time: 15:14 Bed 27 Private MD: ED Physician Saad Alberto HPI: 04/30 19:01 This 52 yrs old Male presents to ER via Ambulatory with complaints of ostomy bag pm1 problem. 19:01 Colonoscopy bag change. Onset: The symptoms/episode began/occurred today, Patient pm1 reports he has gone through 1 bag per day due to bag falling off from sweating. He is here today to get his bag replaced because he ran out of supplies. Severity of symptoms: Pain is currently a 0 / 10. The patient has not recently seen a physician. Patient with no other complaints besides colonoscopy bag change and hunger. Patient is asking for food because he is homeless. Historical: - Allergies: 15:24 NKDA; kb3 - Home Meds: 15:25 None [Active]; kb3 - PMHx: 15:25 SBO; kb3 - PSHx: 15:25 Small bowel resection with ileostomy; kb3 - Immunization history:: Adult Immunizations up to date, Client reports receiving the 2nd dose of the Covid vaccine, Last tetanus immunization: unknown. - Social history:: Smoking status: Patient reports use of chewing tobacco. ROS: 19:01 Constitutional: Negative for fever, chills, and weight loss, Cardiovascular: Negative pm1 for chest pain, palpitations, and edema, Respiratory: Negative for shortness of breath, cough, wheezing, and pleuritic chest pain, Abdomen/GI: Negative for abdominal pain, nausea, vomiting, diarrhea, and constipation, MS/Extremity: Negative for injury and deformity, Skin: Negative for injury, rash, and discoloration, Neuro: Negative for headache, weakness, numbness, tingling, and seizure. 19:01 All other systems are negative. Exam: 19:01 Constitutional: This is a well developed, well nourished patient who is awake, alert, pm1 and in no acute distress. Head/Face: Normocephalic, atraumatic. 19:01 Back: No spinal tenderness. No costovertebral tenderness. Full range of motion. Skin: Warm, dry with normal turgor. Normal color with no rashes, no lesions, and no evidence of cellulitis. MS/ Extremity: Pulses equal, no cyanosis. Neurovascular intact. Full, normal range of motion. 19:01 Eyes: Exam is negative for acute changes, Periorbital structures: no acute changes, Extraocular movements: no acute changes, Conjunctiva: no acute changes. 19:01 Cardiovascular: Exam negative for acute changes, Rate: normal, Rhythm: regular, Pulses: no pulse deficits are appreciated. 19:01 Respiratory: Exam negative for acute changes, respiratory distress, shortness of breath. 19:01 Abdomen/GI: Exam negative for acute changes, Inspection: ostomy bag present to right side of abdomen without any acute changes, Palpation: abdomen is soft and non-tender, in all quadrants. 19:01 Neuro: Exam negative for acute changes, Orientation: is normal, Mentation: is normal, Motor: is normal, moves all fours, Gait: is steady, at a normal pace, without difficulty. Vital Signs: 15:23 BP 106 / 78; Pulse 100; Resp 20; Temp 98.2; Pulse Ox 100% ; Weight 68.04 kg; Height 6 kb3 ft. 1 in. (185.42 cm); Pain 0/10; 19:08 BP 110 / 77; Pulse 99; Resp 18; Pulse Ox 100% on R/A; ld1 15:23 Body Mass Index 19.79 (68.04 kg, 185.42 cm) kb3 MDM: 15:37 Patient medically screened. pm1 18:59 Data reviewed: vital signs. Data interpreted: Pulse oximetry: on room air is 100 %. pm1 Interpretation: normal. Counseling: I had a detailed discussion with the patient and/or guardian regarding: the historical points, exam findings, and any diagnostic results supporting the discharge/admit diagnosis, the need for outpatient follow up, a family practitioner, to return to the emergency department if symptoms worsen or persist or if there are any questions or concerns that arise at home. Administered Medications: No medications were administered Disposition: 23:11 Co-signature as Attending Physician, Saad Alberto DO I agree with the assessment and ms3 plan of care. Disposition Summary: 04/30/22 19:01 Discharge Ordered Location: Home pm1 Problem: new pm1 Symptoms: have improved pm1 Condition: Stable pm1 Diagnosis - Encounter for attention to colostomy pm1 Followup: pm1 - With: Emergency Department - When: As needed - Reason: Worsening of condition Followup: pm1 - With: Private Physician - When: 2 - 3 days - Reason: Recheck today's complaints, Continuance of care, Re-evaluation by your physician Discharge Instructions: - Discharge Summary Sheet pm1 - Colostomy Home Guide, Adult pm1 Forms: - Medication Reconciliation Form pm1 - Thank You Letter pm1 - Antibiotic Education pm1 - Prescription Opioid Use pm1 Signatures: Avtar Fierro, ETTA RN OBGYN pm1 Saad Alberto DO DO ms3 Margaret Ac, RN RN kb3
--- NOTE | 2022-04-30 19:02 | ER ---
Nurse's Notes [facility] Name: Rico Mcneill Age: 52 yrs Sex: Male : 1970 Arrival Date: 04/30/2022 Time: 15:14 Bed 27 Private MD: Diagnosis: Encounter for attention to colostomy Presentation: 04/30 15:23 Chief complaint: Patient states: PT reports his ostomy bag is loose and leaking, states kb3 he has no supplies to replace it with. Coronavirus screen: Vaccine status: Patient reports receiving the 2nd dose of the covid vaccine. Client denies travel out of the [place] in the last 14 days. Ebola Screen: Patient negative for fever greater than or equal to 101.5 degrees Fahrenheit, and additional compatible Ebola Virus Disease symptoms Patient denies exposure to infectious person. Patient denies travel to an Ebola-affected area in the 21 days before illness onset. Initial Sepsis Screen: Does the patient meet any 2 criteria? No. Patient's initial sepsis screen is negative. Does the patient have a suspected source of infection? No. Patient's initial sepsis screen is negative. Risk Assessment: Do you want to hurt yourself or someone else? Patient reports no desire to harm self or others. Onset of symptoms is unknown. 15:23 Method Of Arrival: Ambulatory 3 15:23 Acuity: OCTAVIO 5 kb3 Triage Assessment: 15:25 General: Appears in no apparent distress. unkempt, Behavior is calm, cooperative. Pain: kb3 Denies pain. Historical: - Allergies: 15:24 NKDA; kb3 - Home Meds: 15:25 None [Active]; kb3 - PMHx: 15:25 SBO; kb3 - PSHx: 15:25 Small bowel resection with ileostomy; kb3 - Immunization history:: Adult Immunizations up to date, Client reports receiving the 2nd dose of the Covid vaccine, Last tetanus immunization: unknown. - Social history:: Smoking status: Patient reports use of chewing tobacco. Screenin:09 Abuse screen: Denies threats or abuse. Denies injuries from another. Nutritional ld1 screening: No deficits noted. Tuberculosis screening: No symptoms or risk factors identified. Fall Risk None identified. Assessment: 19:08 General: Appears in no apparent distress. comfortable, Behavior is calm, cooperative, ld1 appropriate for age. Pain: Denies pain. Neuro: Level of Consciousness is awake, alert, obeys commands, Oriented to person, place, time, situation. Cardiovascular: Capillary refill < 3 seconds Patient's skin is warm and dry. Respiratory: Airway is patent Respiratory effort is even, unlabored. GI: Abdomen is flat, non-distended, is clean and dry. Ostomy appliance is not intact. Changed ostomy bag out. Vital Signs: 15:23 BP 106 / 78; Pulse 100; Resp 20; Temp 98.2; Pulse Ox 100% ; Weight 68.04 kg; Height 6 kb3 ft. 1 in. (185.42 cm); Pain 0/10; 19:08 BP 110 / 77; Pulse 99; Resp 18; Pulse Ox 100% on R/A; ld1 15:23 Body Mass Index 19.79 (68.04 kg, 185.42 cm) kb3 ED Course: 15:14 Patient arrived in ED. am2 15:21 Avtar Fierro NP is PHCP. pm1 15:21 Saad Alberto DO is Attending Physician. pm1 15:24 Triage completed. kb3 15:25 Arm band placed on left wrist. kb3 19:07 Rosaura Lilly, BRITTNY is Primary Nurse. ld1 19:09 Patient has correct armband on for positive identification. Bed in low position. Call ld1 light in reach. Side rails up X2. Pulse ox on. NIBP on. Door closed. Noise minimized. Warm blanket given. 19:09 No provider procedures requiring assistance completed. Patient did not have IV access ld1 during this emergency room visit. Administered Medications: No medications were administered Medication: 19:09 VIS not applicable for this client. ld1 Outcome: 19:01 Discharge ordered by . pm1 19:09 Discharged to home ambulatory. ld1 19:09 Condition: stable 19:09 Discharge instructions given to patient, Instructed on discharge instructions, follow up and referral plans. Demonstrated understanding of instructions, follow-up care. 19:45 Patient left the ED. ld1 Signatures: Avtar Fierro NP APPLICATIONS MANAGER pm1 Drea Fisher am2 Rosaura Lilly, BRITTNY RN ld1 Margaret Ac RN RN kb3
[2022-04-30 21:35] VITALS: TEMP 98.2; O2SAT 100
[2022-04-30 21:46] VITALS: BP 110/77
== END 2022-04-30 19:45 | disposition home or self-care (01) ==
LOC: ER 15:11
DX: Z43.3 Encounter for attention to colostomy (principal); F17.220 Nicotine dependence, chewing tobacco, uncomplicated
CPT/HCPCS: 99283

== ENCOUNTER 2022-05-02 17:47 | Emergency (ER) | payer SELFPAY ==
--- OUTSIDE RECORDS SUMMARY | 2022-05-02 18:36 | XMS REPORT | Continuity of Care Document ---
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 Routine, Pain (scale 1-3) acetaminoph 2022-0 Yes 650mg 650 mg, Un piyush en 08 Oral, ity of (TYLENOL) 06:03: Q6HPRN, [place] tablet 650 36 Starting Medic al mg on Sat Branch 08/31/21 at 0003, Until Discontinu ed, Routine, Pain (scale 1-3) NaCl 0.9% No 1000mL at 999 Uni vers (NS) bolus 08-31-08 mL/hr, ity of infusion 01:45: 02:43 1,000 [...] 00 :00 dose, On Medical 1,000 mg [facility] 08/29/21 Branc h at 1830, Routine lidocaine No 10mL 10 mL, Unive rs 2% viscous 08-30 Oral, ity of (LIDOCAINE 00:30: 00:20 ONCE, 1 [place] VISCOUS) 2 00 :00 dose, On Medic al % solution [facility] 08/29/21 Bra nch 10 mL at 1830, [...] 2020-08 Yes IV Univer s and 0.45% 12 Infusion, ity o f NaCl with 16:00: CONTINUOUS [place] KCl 40 mEq 00 , Starting Med ical 1,000 mL IV on Thu Branch Solution 08/04/21 at 1000, Until Discontinu ed, 1,000 mL, at 125 mL/hr NaCl 0.9% 2020-08- No 1000mL at 999 Uni vers (NS) bolus 212 12-12 mL/hr, ity of infusion 15:53: 17:17 1,000 mL, [place] 1,000 mL 00 :00 IV Medical Piggyback, Branch ONCE, 1 dose, On Thu08/04/21 at 1000, JOÃO D5W 0.45% 2020-08- IV Univers NaCl + KCL 2-10 12 Infusion, ity of 20 mEq RTU 15:00: [...] Until Discontinu ed, Routine iopamidol 2020-08- No [id number] 100mL 100 mL, Univers (ISOVUE 10-01 Intravenou ity o f 370-500 mL) 05:14: 05:14 s, ONCE, 1 [place] injection 00 :00 dose, On Medica l 100 mL Tue Branch 07/30/21 at 2315, Routine morpHINE 2020-08 No 2mg 2 mg, Slow Un piyush injection 2 09-30 IV Push, ity of mg 17:00: 17:10 ONCE, 1 [place] 00 :00 dose, On Medical [facility] 07/30/21 at 1115, Routine enoxaparin 2020-08 Yes 40mg 40 mg, Unive rs (LOVENOX) 09-30 Subcutaneo ity of injection 15:00: us, DAILY, [place] 40 mg 00 First dose Medical (after Branch last modificati on) on [facility] 07/30/21 at 0900, Until Discontinu ed, Routine pantoprazol 2020-08 No 40mg 40 mg, Uni vers e 09-30 12-10 Oral, ity of (PROTONIX) 15:00: 13:40 DAILY, [place] EC tablet 00 :20 First dose Medi mariusz 40 mg on [facility] 07/30/21 at 0900, Until Discontinu ed, Routine loperamide 2020-08 No 4mg 4 mg, Unive rs (IMODIUM 09-30 Oral, TID, ity of A-D) 14:00: 13:19 First dose [place] capsule 4 00 :28 on [facility] Medical mg 07/30/21 at Branch 0800, Until Discontinu ed, Routine psyllium 2020-08- No 1{packe 1 Packet, Univers (METAMUCIL 09-30 t} Oral, TID, it y of FIBER 14:00: 13:19 First dose [place] SINGLES) 00 :28 on [facility] Medical 3.4 gram 07/30/21 at Dignity [...] 2-07 Oral, ity of (TYLENOL) 06:10: Q6HPRN, [place] tablet 650 40 Starting Medic al mg on Thu Branch 07/30/21 at 0010, Until Discontinu ed, Routine, Pain (scale 1-3) morpHINE 2020-08 4mg 4 mg, Slow Un piyush injection 4 2-07 12-07 IV Push, ity of mg 03:30: 02:55 ONCE, 1 [place] 00 :00 dose, On [facility] Mon Branch 07/29/21 at 2130, STAT psyllium 2020-08 Yes [id number] 1{packe Take 1 Univers 3.4 gram 2-03 t} Packet by ity of packet 00:00: mouth 3 [place] 00 (three) Medical times Branch daily. loperamide 2020-08 Yes [id number] 4mg Take 2 Univers 2 mg 2-03 capsules ity of capsule 00:00: by mouth 3 [place] 00 (three) Medical times Branch daily. pantoprazol 2020-08 Yes [id number] 40mg Take 1 Univers e 40 mg EC 2-03 tablet by ity of tablet 00:00: mouth [place] 00 daily. Medical Branch psyllium 2020-08 Yes [id number] 1{packe Take 1 Univers 3.4 gram 2-03 t} Packet by ity of packet 00:00: mouth 3 [place] 00 (three) Medical times Branch daily. loperamide 2020-08 Yes [id number] 4mg Take 2 Univers 2 mg 2-03 capsules ity of capsule 00:00: by mouth 3 [place] 00 (three) Medical times Branch daily. pantoprazol 2020-08 Yes [id number] 40mg Take 1 Univers e 40 mg EC 2-03 tablet by ity of tablet 00:00: mouth [place] 00 daily. Medical Branch psyllium 2020-08- No [id number] 1{packe Take 1 Univers 3.4 gram 2-03 12-13 t} Packet by ity o f packet 00:00: 00:00 mouth 3 [place] 00 :00 (three) Medical times Branch daily. loperamide 2020-08- No [id number] 4mg Take 2 Univers 2 mg 2-03 12-13 capsules ity of capsule 00:00: 00:00 by mouth 3 [place] 00 :00 (three) Medical times Branch daily. pantoprazol 2020-08- No [id number] 40mg Take 1 Univers e 40 mg EC 2-03 12-13 tablet by ity of tablet 00:00: 00:00 mouth [place] 00 :00 daily. Medical Branch psyllium 2020-08- No [id number] 1{packe Take 1 Univers 3.4 gram 2-03 12-03 t} Packet by ity o f packet 00:00: 00:00 mouth 3 [place] 00 :00 (three) Medical times Branch daily for 90 days. loperamide 2020-08- No [id number] 4mg Take 2 Univers 2 mg 2-03 12-03 capsules ity of capsule 00:00: 00:00 by mouth 3 [place] 00 :00 (three) Medical times Branch daily for 90 days. pantoprazol 2020-08- No [id number] 40mg Take 1 Univers e 40 mg EC 2-03 12-03 tablet by ity of tablet 00:00: 00:00 mouth [place] 00 :00 daily for Medical 90 days. Branch psyllium 2020-08- No [id number] 1{packe Take 1 Univers 3.4 gram 2-03 12-03 t} Packet by ity o f packet 00:00: 00:00 mouth 3 [place] 00 :00 (three) Medical times Branch daily. pantoprazol 2020-08- No [id number] 40mg Take 1 Univers e 40 mg EC 09-26 tablet by ity of tablet 00:00: 00:00 mouth [place] 00 :00 daily. Medical Branch loperamide 2020-08- No [id number] 4mg Take 2 Univers 2 mg 09-26 capsules ity of capsule 00:00: 00:00 by mouth 3 [place] 00 :00 (three) Medical times Branch daily. psyllium 2020-08- No [id number] 1{packe Take 1 Univers 3.4 gram 09-26 t} Packet by ity o f packet 00:00: 00:00 mouth 3 [place] 00 :00 (three) Medical times Branch daily. loperamide 2020-08- No [id number] 4mg Take 2 Univers 2 mg 09-26 capsules ity of capsule 00:00: 00:00 by mouth 3 [place] 00 :00 (three) Medical times Branch daily. pantoprazol 2020-08- No [id number] 40mg Take 1 Univers e 40 mg EC 09-26 tablet by ity of tablet 00:00: 00:00 mouth [place] 00 :00 daily. Medical Branch pantoprazol 2020-08 Yes 40mg 40 mg, Univ ers e 2- Oral, ity of (PROTONIX) 15:00: DAILY, [place] EC tablet 00 First dose Medi mariusz 40 mg on [facility] Branch 07/25/21 at 0900, Until Discontinu ed, Routine psyllium 2020-08 Yes 1{packe 1 Packet, U nivers (METAMUCIL 2 t} Oral, TID, ity of FIBER 14:00: First dose [place] SINGLES) 00 (after Medical 3.4 gram last Branch packet 1 modificati Packet on) on [facility] 07/25/21 at 0800, Until Discontinu ed, Routine [...] at 0145, Until Discontinu ed, Routine pantoprazol 2020-08- No 40mg 40 mg, Uni vers e [...] 1,000 mL 00 :00 IV Medical Piggyback, [place] ONCE, 1 dose, On Thu07/23/21 at 0100, [...] dose [place] EC tablet 00 on [facility] Medical 40 mg 06/01/21 at Branch 0945, Until Discontinu ed, Routine psyllium 2020-08 Yes 1{packe 1 Packet, U nivers (METAMUCIL 0-09 t} Oral, ity of FIBER 14:45: DAILY, [place] SINGLES) 00 First dose Medic al 3.4 gram on [facility] Branch packet 1 06/01/21 at Packet 0945, [...] 16 Starting Medi mariusz tablet 1 on [facility] Branch tablet 06/01/21 at 0939, Until Discontinu [...] 0-09 Oral, ity of (TYLENOL) 14:36: Q6HPRN, [place] tablet 650 07 Starting Medic al mg [...] Thu05/31/21 at 2045, STAT iopamidol 2020-08- No [id number] 100mL 100 mL, Univers (ISOVUE 0-09 10-09 Intravenou ity o f 370-500 mL) 00:30: 00:30 s, ONCE, 1 [place] injection 00 :00 dose, On Medica l 100 mL Fri Branch 05/31/21 at 1930, Routine morpHINE 2020-08- No 4mg 4 mg, Slow Un piyush injection 4 0-08 10-08 IV Push, ity of mg 23:30: 22:48 ONCE, 1 [place] 00 :00 dose, On Medical Fri Branch [...] IV [place] 500 mL 00 :00 Piggyback, [facility] ONCE, 1 Branch dose, On Thu05/31/21 at 1830, STAT psyllium Yes [id number] 1{packe Take 1 Univers 3.4 gram 9-29 t} Packet by ity of packet 00:00: mouth [place] 00 daily. [facility] Branch psyllium 0 Yes [id number] 1{packe Take 1 Univers 3.4 gram 9-29 t} Packet by ity of packet 00:00: mouth [place] 00 daily. [facility] psyllium 0 Yes [id number] 1{packe Take 1 Univers 3.4 gram 9-29 t} Packet by ity of packet 00:00: mouth [place] 00 daily. [facility] psyllium 0 Yes [id number] 1{packe Take 1 Univers 3.4 gram 9-29 t} Packet by ity of packet 00:00: mouth [place] 00 daily. [facility] psyllium Yes [id number] 1{packe Take 1 Univers 3.4 gram 9-29 t} Packet by ity of packet 00:00: mouth [place] 00 daily. [facility] psyllium 2020- No [id number] 1{packe Take 1 Univers 3.4 gram 9-29 12-13 t} Packet by ity o f packet 00:00: 00:00 mouth [place] 00 :00 daily. [facility] Branch enoxaparin Yes 40mg 40 mg, Unive rs (LOVENOX) 05-21 Subcutaneo ity of injection 14:00: us, DAILY, [place] 40 mg 00 First dose Medical on Thu Branch 05/21/21 at 0900, Until Discontinu ed, Routine ondansetron Yes 4mg 4 mg, Slow Univers (ZOFRAN 05-21 IV Push, ity of (PF)) 00:15: Q6HPRN, [place] injection 4 13 Starting Medi maruisz mg on Thu Branch 05/20/21 at 1915, [...] t} Oral, ity of FIBER 22:15: DAILY, [place] SINGLES) 00 First dose Medic al 3.4 [...] [place] injection 4 00 :00 dose, On mariusz mg [facility] 05/20/21 at 1600, JOÃO morpHINE 2020- No 4mg 4 mg, Slow Un piyush injection 4 05-20 IV Push, ity of mg 21:00: 20:15 ONCE, 1 [place] 00 :00 dose, On Medical [facility] 05/20/21 at 1600, STAT NaCl 0.9% 2020- No 500mL at 999 Univ ers (NS) bolus 05-20 mL/hr, 500 it y of infusion 21:00: 21:00 mL, IV [place] 500 mL 00 :00 Piggyback, Medical ONCE, 1 [place] dose, On [facility] 05/20/21 at 1600, STAT pantoprazol Yes 40mg 40 mg, Univ ers e 9-17 Oral, BID, ity of (PROTONIX) 01:00: First dose [place] EC tablet 00 on [facility] Medical 40 mg 05/09/21 at [place] 1999, Until Discontinu ed, Routine pantoprazol Yes 40mg 40 mg, Univ ers e 9-17 Oral, BID, ity of (PROTONIX) 01:00: First dose [place] EC tablet 00 on [place] [facility] 40 mg 05/09/21 at [place] 1999, Until Discontinu ed, Routine pantoprazol 2020- No [id number] 40mg Take 1 Univers e 40 mg EC 9-16 11-16 tablet by ity of tablet 00:00: 05:59 mouth 2 [place] 00 :00 (two) Medical [facility] daily pantoprazol 2020- No [id number] 40mg Take 1 Univers e 40 mg EC 9-16 11-16 tablet by ity of tablet 00:00: 05:59 mouth 2 [place] 00 :00 (two) [facility] daily pantoprazol 2020- No [id number] 40mg Take 1 Univers e 40 mg EC 9-16 11-16 tablet by ity of tablet 00:00: 05:59 mouth 2 [place] 00 :00 (two) [facility] daily pantoprazol 2020- No [id number] 40mg Take 1 Univers e 40 mg EC 9-16 11-16 tablet by ity of tablet 00:00: 05:59 mouth 2 [place] 00 :00 (two) Medical [facility] Branch daily pantoprazol 2020-0 2020- No [id number] 40mg Take 1 Univers e 40 mg EC 9-16 11-16 tablet by ity of tablet 00:00: 05:59 mouth 2 [place] 00 :00 (two) Medical times Branch daily pantoprazol 2020-0 2020- No [id number] 40mg Take 1 Univers e 40 mg EC 9-16 11-16 tablet by ity of tablet 00:00: 05:59 mouth 2 [place] 00 :00 (two) Medical times Branch daily pantoprazol 2020- No [id number] 40mg Take 1 Univers e 40 mg EC 9-16 11-16 tablet by ity of tablet 00:00: 05:59 mouth 2 [place] 00 :00 (two) Medical times Branch daily [...] Medical 40 mg First dose Branch on [facility] 05/07/21 at 2330, Until Discontinu ed pantoprazol 2020- No 40mg 40 mg, Uni vers e 05-08 Slow IV ity of (PROTONIX) 04:30: 14:42 Push, [place] injection 00 :43 Q12H, Medical 40 mg First dose Branch on [facility] 05/07/21 at 2330, Until Discontinu ed ondansetron Yes 4mg 4 mg, Slow Univers (ZOFRAN 9-15 IV Push, ity of (PF)) 04:16: Q6HPRN, [place] injection 4 34 Starting Medi mariusz mg on [facility] 05/07/21 at 2316, Until Discontinu ed, Routine, Nausea and Vomiting (N/V) ondansetron Yes 4mg 4 mg, Slow Univers (ZOFRAN 9-15 IV Push, ity of (PF)) 04:16: Q6HPRN, [place] injection 4 34 Starting Medi mariusz mg on [facility] 05/07/21 at 2316, Until Discontinu ed, Routine, Nausea and Vomiting (N/V) morpHINE 2020- No 4mg 4 mg, Slow Un piyush injection 4 05-08 IV Push, ity of mg 04:16: 04[facility] [place] 32 :32 Starting Medical on [facility] 05/07/21 at 2316, Until Thu05/08/21 at 2315, Routine, Pain (scale 7-10) morpHINE 2020- No 4mg 4 mg, Slow Un piyush injection 4 05-08 IV Push, ity of mg 04:16: 04[facility]15 [facility] [place] 32 :32 Starting Medical on [facility] 05/07/21 at 2316, Until Thu05/08/21 at 2315, Routine, Pain (scale 7-10) diazePAM 2020- No 5mg 5 mg, Slow Un piyush (VALIUM) 05-08 IV Push, ity of injection 5 02:45: 02:49 ONCE, 1 [place] mg 00 :00 dose, On Medical [facility] 05/07/21 at 2145, STAT diazePAM 2020-2020- No 5mg 5 mg, Slow Un piyush (VALIUM) 05-08 IV Push, ity of injection 5 02:45: 02:49 ONCE, 1 [place] mg 00 :00 dose, On Medical [facility] 05/07/21 at 2145, STAT iopamidol 2020-0 2020- No [id number] 100mL 100 mL, Univers (ISOVUE 05-08 Intravenou ity o f 370-500 mL) 02:15: 01:08 s, ONCE, 1 [place] injection 00 :00 dose, On Medica l 100 mL [facility] Branch 05/07/21 at 2115, Routine iopamidol 2020- No [id number] 100mL 100 mL, Univers (ISOVUE 05-08 Intravenou ity o f 370-500 mL) 02:15: 01:08 s, ONCE, 1 [place] injection 00 :00 dose, On Medica l 100 mL [facility] 05/07/21 at 2115, Routine morpHINE 2020-2020- No 4mg 4 mg, Slow Un piyush injection 4 05-08 IV Push, ity of mg 01:45: 00:48 ONCE, 1 [place] 00 :00 dose, On [facility] 05/07/21 at 2044, JOÃO ondansetron 2020-2020- No 4mg 4 mg, Slow Univers (ZOFRAN 05-08 IV Push, ity of (PF)) 01:45: 00:47 ONCE, 1 [place] injection 4 00 :00 dose, On Medi mariusz mg [facility] 05/07/21 at 2044, JOÃO morpHINE 2020-0 2020- No 4mg 4 mg, Slow Un piyush injection 4 05-08 IV Push, ity of mg 01:45: 00:48 ONCE, 1 [place] 00 :00 dose, On [facility] 05/07/21 at 2044, JOÃO ondansetron 2020-0 2020- No 4mg 4 mg, Slow Univers (ZOFRAN 05-08 IV Push, ity of (PF)) 01:45: 00:47 ONCE, 1 [place] injection 4 00 :00 dose, On Medi mariusz mg Tue Branch 05/07/21 at 2045, JOÃO flu vaccine 2020- No .5mL 0.5 mL, Un piyush 6 months 08-24 Intramuscu ity of and up (PF) 17:30: 18:09 lar, ONCE, [place] (FLUZONE 00 :00 1 dose, Medical QUAD 08/24/20 Branch at 1130, (PF)) Routine syringe 0.5 mL sulfamethox 2020- No 1{tbl} 1 tablet, [facility] azole-trime 08-24 Oral, BID, i ty of thoprim 02:00: 13:59 7 doses, [place] (BACTRIM 00 :00 First dose Medic al DS) 800-160 on [facility] Branch mg per 08/23/20 tablet 1 at 1999, tablet Last dose on 08/26/20 at 1999, JOÃO
Re ason for Anti-Infec tive: Empiric Therapy for Suspected Infection< br>Empiric Therapy Site: Skin / Soft tissue
Duration of therapy: 72 hours sulfamethox 2020- No [id number] 1{tbl} Take 1 [facility] azole-trime 08-24 tablet by it y of thoprim 00:00: 05:59 mouth 2 [place] 800-160 mg 00 :00 (two) Medical per tablet times Branch daily for 7 days. enoxaparin 2019-08 Yes 40mg 40 mg, Unive rs (LOVENOX) 2-31 Subcutaneo ity of injection 21:30: us, Q24H, [place] 40 mg 00 First dose Medical on [facility] Branch 08/23/20 at 1530, Until Discontinu ed, Routine docusate 2019-08 Yes 100mg 100 mg, Unive rs (COLACE) 2-31 Oral, ity of capsule 100 15:00: DAILY, [place] mg 00 First dose Medical on [facility] Branch 08/23/20 at 0900, Until Discontinu ed, Routine psyllium 2019-08 Yes 3{packe 3 Packet, U nivers (METAMUCIL 2-31 t} Oral, TID, ity of FIBER 14:00: First dose [place] SINGLES) 00 on [place] [facility] 3.4 gram 08/23/20 Branch packet 3 [...] f tablet 6 mg 03:12: - SEE [place] 40 [facility] Medical NS, 1 Branch dose, Starting 08/22/20 at 2111, Until Discontinu ed, Routine, Insomnia, HS labetaloL 2019-08 Yes 10mg 10 mg, Univer s (NORMODYNE) 2-31 Slow IV ity o f injection 03:12: Push, [place] 10 mg 33 Q6HPRN, Medical Starting Branch Thu08/22/20 at 2111, Until Discontinu ed, Routine, hypertensi on ondansetron 2019-08 Yes 4mg 4 mg, Slow Univers (ZOFRAN 2-31 IV Push, ity of (PF)) 03:12: Q6HPRN, [place] injection 4 08 Starting Medi mariusz mg Wed Branch 08/22/20 at 2111, Until Discontinu ed, Routine, Nausea and Vomiting (N/V) acetaminoph 2019-08 Yes 650mg 650 mg, Un piyush en 2-31 Oral, ity of (TYLENOL) 03:11: Q6HPRN, [place] tablet 650 56 Starting Medic al mg [...] of 1,000 mg in 23:30: 00:58 Piggyback, [place] NaCl 0.9% 00 :00 ONCE, 1 Medical [...] IV Medical Infusion, Branch ONCE, 1 dose, [facility] 07/09/20 at 1645, [facility] amoxicillin 2019-08 Yes [id number] 1{tbl} Take 1 Univers -clavulanat 1-16 tablet by ity of e 875-125 00:00: mouth [place] mg per 00 every 12 Medical tablet (twelve) Branch hours. amoxicillin 2019-08- No [id number] 1{tbl} Take 1 Univers -clavulanat 1-16 - [...] of Therapy: 7 days ibuprofen 2019-08 Yes [id number] 800mg Take 1 U nivers 800 mg 0-08 tablet by ity of tablet 00:00: mouth [place] 00 every 6 Medical (six) Branch hours as needed for Pain (scale 4-6). loperamide 2019-08 Yes [id number] 4mg Take 2 U nivers 2 mg 0-08 capsules ity of capsule 00:00: by mouth 4 [place] 00 (four) Medical times Branch daily. diphenoxyla 2019-08 Yes [id number] 1{tbl} Take 1 Univers te-atropine 0-08 tablet by ity of 2.5-0.025 00:00: mouth [place] mg tablet 00 every 8 Medical (eight) Branch hours. psyllium 2019- Yes [id number] 3{packe Take 3 Univers 3.4 gram 0-08 t} Packets by ity o f packet 00:00: mouth 3 [place] 00 (three) Medical times Branch daily. psyllium 2020- Yes [id number] 3{packe Take 3 Univers 3.4 gram 0-08 t} Packets by ity o f packet 00:00: mouth 3 [place] 00 (three) Medical times Branch daily. diphenoxyla 2019- Yes [id number] 1{tbl} Take 1 Univers te-atropine 0-08 tablet by ity of 2.5-0.025 00:00: mouth [place] mg tablet 00 every 8 Medical (eight) Branch hours. loperamide 2020-1 Yes [id number] 4mg Take 2 U nivers 2 mg 0-08 capsules ity of capsule 00:00: by mouth 4 [place] 00 (four) Medical times Branch daily. ibuprofen 2020-1 Yes [id number] 800mg Take 1 U nivers 800 mg 0-08 tablet by ity of tablet 00:00: mouth [place] 00 every 6 Medical (six) Branch hours as needed for Pain (scale 4-6). psyllium 2020-1 Yes [id number] 3{packe Take 3 Univers 3.4 gram 0-08 t} Packets by ity o f packet 00:00: mouth 3 [place] 00 (three) Medical times Branch daily. diphenoxyla 2020-1 Yes [id number] 1{tbl} Take 1 Univers te-atropine 0-08 tablet by ity of 2.5-0.025 00:00: mouth [place] mg tablet 00 every 8 Medical (eight) Branch hours. loperamide 2020-1 Yes [id number] 4mg Take 2 U nivers 2 mg 0-08 capsules ity of capsule 00:00: by mouth 4 [place] 00 (four) Medical times Branch daily. ibuprofen 2020-1 Yes [id number] 800mg Take 1 U nivers 800 mg 0-08 tablet by ity of tablet 00:00: mouth [place] 00 every 6 Medical (six) Branch hours as needed for Pain (scale 4-6). psyllium 2020-1 Yes [id number] 3{packe Take 3 Univers 3.4 gram 0-08 t} Packets by ity o f packet 00:00: mouth 3 [place] 00 (three) Medical times Branch daily. diphenoxyla 2020-1 Yes [id number] 1{tbl} Take 1 Univers te-atropine 0-08 tablet by ity of 2.5-0.025 00:00: mouth [place] mg tablet 00 every 8 Medical (eight) Branch hours. loperamide 2020-1 Yes [id number] 4mg Take 2 U nivers 2 mg 0-08 capsules ity of capsule 00:00: by mouth 4 [place] 00 (four) Medical times Branch daily. ibuprofen 2020-1 Yes [id number] 800mg Take 1 U nivers 800 mg 0-08 tablet by ity of tablet 00:00: mouth [place] 00 every 6 Medical (six) Branch hours as needed for Pain (scale 4-6). psyllium 2020-1 Yes [id number] 3{packe Take 3 Univers 3.4 gram 0-08 t} Packets by ity o f packet 00:00: mouth 3 [place] 00 (three) Medical times Branch daily. diphenoxyla 2020-1 Yes [id number] 1{tbl} Take 1 Univers te-atropine 0-08 tablet by ity of 2.5-0.025 00:00: mouth [place] mg tablet 00 every 8 Medical (eight) Branch hours. loperamide 2020-1 Yes [id number] 4mg Take 2 U nivers 2 mg 0-08 capsules ity of capsule 00:00: by mouth 4 [place] 00 (four) Medical times Branch daily. ibuprofen 2020- Yes [id number] 800mg Take 1 U nivers 800 mg 0-08 tablet by ity of tablet 00:00: mouth [place] 00 every 6 Medical (six) Branch hours as needed for Pain (scale 4-6). psyllium 2020-1 Yes [id number] 3{packe Take 3 Univers 3.4 gram 0-08 t} Packets by ity o f packet 00:00: mouth 3 [place] 00 (three) Medical times Branch daily. diphenoxyla 2020-1 Yes [id number] 1{tbl} Take 1 Univers te-atropine 0-08 tablet by ity of 2.5-0.025 00:00: mouth [place] mg tablet 00 every 8 Medical (eight) Branch hours. loperamide 2020-1 Yes [id number] 4mg Take 2 U nivers 2 mg 0-08 capsules ity of capsule 00:00: by mouth 4 [place] 00 (four) Medical times Branch daily. ibuprofen 2020-1 Yes [id number] 800mg Take 1 U nivers 800 mg 0-08 tablet by ity of tablet 00:00: mouth [place] 00 every 6 Medical (six) Branch hours as needed for Pain (scale 4-6). psyllium 2020-1 Yes [id number] 3{packe Take 3 Univers 3.4 gram 0-08 t} Packets by ity o f packet 00:00: mouth 3 [place] 00 (three) Medical times Branch daily. diphenoxyla 2020-1 Yes [id number] 1{tbl} Take 1 Univers te-atropine 0-08 tablet by ity of 2.5-0.025 00:00: mouth [place] mg tablet 00 every 8 Medical (eight) Branch hours. loperamide 2020-1 Yes [id number] 4mg Take 2 U nivers 2 mg 0-08 capsules ity of capsule 00:00: by mouth 4 [place] 00 (four) Medical times Branch daily. ibuprofen 2020-1 Yes [id number] 800mg Take 1 U nivers 800 mg 0-08 tablet by ity of tablet 00:00: mouth [place] 00 every 6 Medical (six) Branch hours as needed for Pain (scale 4-6). psyllium 2020-1 Yes [id number] 3{packe Take 3 Univers 3.4 gram 0-08 t} Packets by ity o f packet 00:00: mouth 3 [place] 00 (three) Medical times Branch daily. diphenoxyla 2020-1 Yes [id number] 1{tbl} Take 1 Univers te-atropine 0-08 tablet by ity of 2.5-0.025 00:00: mouth [place] mg tablet 00 every 8 Medical (eight) Branch hours. loperamide 2020-1 Yes [id number] 4mg Take 2 U nivers 2 mg 0-08 capsules ity of capsule 00:00: by mouth 4 [place] 00 (four) Medical times Branch daily. ibuprofen 2020-1 Yes [id number] 800mg Take 1 U nivers 800 mg 0-08 tablet by ity of tablet 00:00: mouth [place] 00 every 6 Medical (six) Branch hours as needed for Pain (scale 4-6). psyllium 2020-1 Yes [id number] 3{packe Take 3 Univers 3.4 gram 0-08 t} Packets by ity o f packet 00:00: mouth 3 [place] 00 (three) Medical times Branch daily. diphenoxyla 2020-1 Yes [id number] 1{tbl} Take 1 Univers te-atropine 0-08 tablet by ity of 2.5-0.025 00:00: mouth [place] mg tablet 00 every 8 Medical (eight) Branch hours. loperamide 2020-1 Yes [id number] 4mg Take 2 U nivers 2 mg 0-08 capsules ity of capsule 00:00: by mouth 4 [place] 00 (four) Medical times Branch daily. ibuprofen 2020-1 Yes [id number] 800mg Take 1 U nivers 800 mg 0-08 tablet by ity of tablet 00:00: mouth [place] 00 every 6 Medical (six) Branch hours as needed for Pain (scale 4-6). psyllium 2020-1 Yes [id number] 3{packe Take 3 Univers 3.4 gram 0-08 t} Packets by ity o f packet 00:00: mouth 3 [place] 00 (three) Medical times Branch daily. diphenoxyla 2020-1 Yes [id number] 1{tbl} Take 1 [facility] te-atropine 0-08 tablet by ity of 2.5-0.025 00:00: mouth [place] mg tablet 00 every 8 Medical (eight) Branch hours. loperamide 2020-1 Yes [id number] 4mg Take 2 U nivers 2 mg 0-08 capsules [facility] of capsule 00:00: [place] 4 [place] ([place] [facility] [place] Branch daily. ibuprofen 2020-1 Yes [id number] 800mg Take 1 U nivers 800 mg 0-08 tablet by ity of tablet 00:00: mouth [place] 00 every 6 Medical (six) Branch hours as needed for Pain (scale 4-6). psyllium 2020-1 Yes [id number] 3{packe Take 3 [facility] 3.4 gram 0-08 t} Packets by ity o f packet 00:00: mouth 3 [place] 00 (three) Medical times Branch daily. diphenoxyla 2020-1 Yes [id number] 1{tbl} Take 1 [facility] te-atropine 0-08 tablet by ity of 2.5-0.025 00:00: mouth [place] mg tablet 00 every 8 Medical (eight) Branch hours. loperamide 2020-1 Yes [id number] 4mg Take 2 U nivers 2 mg 0-08 capsules [facility] of capsule 00:00: [place] mouth 4 [place] (four) [facility] times Branch daily. ibuprofen 2020-1 Yes [id number] 800mg Take 1 U nivers 800 mg 0-08 tablet by ity of tablet 00:00: mouth [place] 00 every 6 Medical (six) Branch hours as needed for Pain (scale 4-6). psyllium 2020-1 Yes [id number] 3{packe Take 3 [facility] 3.4 gram 0-08 t} Packets by ity o f packet 00:00: mouth 3 [place] 00 (three) Medical times Branch daily. diphenoxyla 2020-1 Yes [id number] 1{tbl} Take 1 [facility] te-atropine 0-08 tablet by ity of 2.5-0.025 00:00: mouth [place] mg tablet 00 every 8 Medical (eight) Branch hours. loperamide 2020- Yes [id number] 4mg Take 2 U nivers 2 mg 0-08 capsules [facility] of capsule 00:00: [place] mouth 4 [place] (four) Medical times Branch daily. ibuprofen 2019- Yes [id number] 800mg Take 1 U nivers 800 mg 0-08 tablet by ity of tablet 00:00: mouth [place] 00 every 6 Medical (six) Branch hours as needed for Pain (scale 4-6). psyllium 2020- Yes [id number] 3{packe Take 3 [facility] 3.4 gram 0-08 t} Packets by ity o f packet 00:00: mouth 3 [place] 00 (three) Medical times Branch daily. diphenoxyla 2020- Yes [id number] 1{tbl} Take 1 [facility] te-atropine 0-08 tablet by ity of 2.5-0.025 00:00: mouth [place] mg tablet 00 every 8 Medical (eight) Branch hours. loperamide 2019- Yes [id number] 4mg Take 2 U nivers 2 mg 0-08 capsules [facility] of capsule 00:00: by mouth 4 [place] (four) Medical times Branch daily. ibuprofen 2019- Yes [id number] 800mg Take 1 U nivers 800 mg 0-08 tablet by ity of tablet 00:00: mouth [place] 00 every 6 Medical (six) Branch hours as needed for Pain (scale 4-6). psyllium 2020-1 Yes [id number] 3{packe Take 3 [facility] 3.4 gram 0-08 t} Packets by ity o f packet 00:00: mouth 3 [place] 00 (three) Medical times Branch daily. diphenoxyla 2020-1 Yes [id number] 1{tbl} Take 1 [facility] te-atropine 0-08 tablet by ity of 2.5-0.025 00:00: mouth [place] mg tablet 00 every 8 Medical (eight) Branch hours. loperamide 2020- Yes [id number] 4mg Take 2 U nivers 2 mg 0-08 capsules [facility] of capsule 00:00: by mouth 4 [place] (four) Medical times Branch daily. ibuprofen 2019-1 Yes [id number] 800mg Take 1 U nivers 800 mg 0-08 tablet by ity of tablet 00:00: mouth [place] 00 every 6 Medical (six) Branch hours as needed for Pain (scale 4-6). acetaminoph 2019-08- No [id number] 650mg Take 2 [facility] en 325 mg 0-08 10-09 tablets by ity of tablet 00:00: 04:59 mouth [place] 00 :00 every 6 Medical (six) Branch hours as needed for Pain (scale 1-3). acetaminoph 2019-08- No [id number] 650mg Take 2 [facility] en 325 mg 0-08 10-09 tablets by ity of tablet 00:00: 04:59 mouth [place] 00 :00 every 6 Medical (six) Branch hours as needed for Pain (scale 1-3). acetaminoph 2019-08 No [id number] 650mg Take 2 [facility] en 325 mg 0-08 10-09 tablets by ity of tablet 00:00: 04:59 mouth [place] 00 :00 every 6 Medical (six) Branch hours as needed for Pain (scale 1-3). acetaminoph 2019-08 No [id number] 650mg Take 2 [facility] en 325 mg 0-08 10-09 tablets by ity of tablet 00:00: 04:59 mouth [place] 00 :00 every 6 Medical (six) Branch hours as needed for Pain (scale 1-3). acetaminoph 2019-08 No [id number] 650mg Take 2 [facility] en 325 mg 0-08 10-09 tablets by ity of tablet 00:00: 04:59 mouth [place] 00 :00 every 6 Medical (six) Branch hours as needed for Pain (scale 1-3). acetaminoph 2019-08- No [id number] 650mg Take 2 [facility] en 325 mg 0-08 10-09 tablets by ity of tablet 00:00: 04:59 mouth [place] 00 :00 every 6 Medical (six) Branch hours as needed for Pain (scale 1-3). acetaminoph 2019-08 No [id number] 650mg Take 2 [facility] en 325 mg 0-08 10-09 tablets by ity of tablet 00:00: 04:59 mouth [place] 00 :00 every 6 Medical (six) Branch hours as needed for Pain (scale 1-3). acetaminoph 2019-08 No [id number] 650mg Take 2 [facility] en 325 mg 0-08 10-09 tablets by ity of tablet 00:00: 04:59 mouth [place] 00 :00 every 6 Medical (six) Branch hours as needed for Pain (scale 1-3). acetaminoph 2019-08- No [id number] 650mg Take 2 [facility] en 325 mg 0-08 10-09 tablets by ity of tablet 00:00: 04:59 mouth [place] 00 :00 every 6 Medical (six) Branch hours as needed for Pain (scale 1-3). acetaminoph 2019-08- No [id number] 650mg Take 2 [facility] en 325 mg 0-08 10-09 tablets by ity of tablet 00:00: 04:59 mouth [place] 00 :00 every 6 Medical (six) Branch hours as needed for Pain (scale 1-3). acetaminoph 2019-08- No [id number] 650mg Take 2 [facility] en 325 mg 0-08 10-09 tablets by ity of tablet 00:00: 04:59 mouth [place] 00 :00 every 6 Medical (six) Branch hours as needed for Pain (scale 1-3). acetaminoph 2019-08- No [id number] 650mg Take 2 [facility] en 325 mg 0-08 10-09 tablets by ity of tablet 00:00: 04:59 mouth [place] 00 :00 every 6 Medical (six) Branch hours as needed for Pain (scale 1-3). acetaminoph 2019-08- No [id number] 650mg Take 2 [facility] en 325 mg 0-08 10-09 tablets by ity of tablet 00:00: 04:59 mouth [place] 00 :00 every 6 Medical (six) Branch hours as needed for Pain (scale 1-3). acetaminoph 2019-08- No [id number] 650mg Take 2 [facility] en 325 mg 0-08 10-09 tablets by ity of tablet 00:00: 04:59 mouth [place] 00 :00 every 6 Medical (six) Branch hours as needed for Pain (scale 1-3). psyllium 2019-08- No [id number] 3{packe Take 3 [facility] 3.4 gram 0-08 09-16 t} Packets by ity of packet 00:00: 00:00 mouth 3 [place] 00 :00 (three) Medical times Branch daily. diphenoxyla 2019-08 No [id number] 1{tbl} Take 1 [facility] te-atropine 0-08 09-16 tablet by it y of 2.5-0.025 00:00: 00:00 mouth [place] mg tablet 00 :00 every 8 Medical (eight) Branch hours. loperamide 2019-08 No [id number] 4mg Take 2 [facility] 2 mg 0-08 09-16 capsules ity of capsule 00:00: 00:00 by mouth 4 [place] 00 :00 (four) Medical times Branch daily. ibuprofen 2019-08 No [id number] 800mg Take 1 [facility] 800 mg 0-08 09-16 tablet by ity of tablet 00:00: 00:00 mouth [place] 00 :00 every 6 Medical (six) Branch hours as needed for Pain (scale 4-6). acetaminoph 2019-08 No [id number] 650mg Take 2 [facility] en 325 mg 0-08 -16 tablets by ity of tablet 00:00: 00:00 mouth [place] 00 :00 every 6 Medical (six) Branch hours as needed for Pain (scale 1-3). psyllium 2019-08 No [id number] 3{packe Take 3 [facility] 3.4 gram 0-08 09-16 t} Packets by ity of packet 00:00: 00:00 mouth 3 [place] 00 :00 (three) Medical times Branch daily. diphenoxyla 2019-08 No [id number] 1{tbl} Take 1 [facility] te-atropine 0-08 -16 tablet by it y of 2.5-0.025 00:00: 00:00 mouth [place] mg tablet 00 :00 every 8 Medical (eight) Branch hours. loperamide 2019-08 No [id number] 4mg Take 2 [facility] 2 mg 0-08 09-16 capsules ity of capsule 00:00: 00:00 by mouth 4 [place] 00 :00 (four) Medical times Branch daily. ibuprofen 2019-08 No [id number] 800mg Take 1 [facility] 800 mg 0-08 09-16 tablet by ity of tablet 00:00: 00:00 mouth [place] 00 :00 every 6 Medical (six) Branch hours as needed for Pain (scale 4-6). acetaminoph 2019-08 No [id number] 650mg Take 2 [facility] en 325 mg 0-08 09-16 tablets by ity of tablet 00:00: 00:00 mouth [place] 00 :00 every 6 Medical (six) Branch hours as needed for Pain (scale 1-3). acetaminoph 2019-08- No [id number] 650mg Take 2 [facility] en 325 mg 0-08 10-08 tablets by ity of tablet 00:00: 00:00 mouth [place] 00 :00 every 6 Medical (six) Branch hours as needed for Pain (scale 1-3). ibuprofen 2019-08- No [id number] 800mg Take 1 [facility] 800 mg 0-08 10-08 tablet by ity of tablet 00:00: 00:00 mouth [place] 00 :00 every 6 Medical (six) Branch hours as needed for Pain (scale 4-6). loperamide 2019-08- No [id number] 4mg Take 2 [facility] 2 mg 0-08 10-08 capsules ity of capsule 00:00: 00:00 by mouth 4 [place] 00 :00 (four) Medical times Branch daily. diphenoxyla 2019-08- No [id number] 1{tbl} Take 1 [facility] te-atropine 0-08 10-08 tablet by it y of 2.5-0.025 00:00: 00:00 mouth [place] mg tablet 00 :00 every 8 Medical (eight) Branch hours. psyllium 2019-08- No [id number] 3{packe Take 3 [facility] 3.4 gram 0-08 [...] Medi mariusz (8 %) IV 05/29/20 at [facility] Piggyback 4 0730, g Routine magnesium 2019- 2020- No 2g 2 g, IV Univ ers sulfate in 0-05 10-05 Piggyback, it y of water 2 13:30: 13:20 ONCE, 1 [place] gram/50 mL 00 :00 dose, [facility] Medi mariusz (4 %) 05/28/20 at Branch [...] First dose [place] SINGLES) 00 :14 on [place] Medical 3.4 gram 05/27/20 at [facility] packet 1 1999, Packet Until Discontinu ed, Routine loperamide 2019-08 2020- No 4mg 4 mg, Unive rs (IMODIUM 0-04 10-05 Oral, TID, ity of A-D) 19:00: 12:56 First dose [place] capsule 4 00 :31 (after Medical mg last Branch modificati on) on [place] 05/27/20 at 1400, Until Discontinu ed, Routine magnesium 2020-1 2020- No 2g 2 g, IV Univ ers sulfate in 0-04 10-04 Piggyback, it y of water 2 13:00: 12:28 ONCE, 1 [place] gram/50 mL 00 :00 dose, Sun Medi mariusz (4 %) 05/27/20 at [place] infusion 2 0800, g Routine lactated 2019-08 [...] at 2000, Until Discontinu ed, Routine lactated 2019-08 2020- No 1000mL at 999 Univ ers [...] 16:01: 16:01 Starting [place] injection 03 :03 [facility] Medical 05/24/20 at Branch 1101, Until Discontinu [...] dose, Thu Medica l mL) 05/23/20 at [place] injection 1015, 100 mL Routine docusate 2019- [...] :16 dose on Medica l mg Thu [place] 05/22/20 at 2330, Until Discontinu ed, JOÃO
Re ason for Anti-Infec tive: Documented Infection< br>Documen dain Infection Site: Abdominal< br>Duratio n of Therapy: 7 days ondansetron 2019-0 Yes 4mg 4 mg, Slow Univers (ZOFRAN 05-23 IV Push, ity of (PF)) 03:15: Administer [place] injection 4 50 over 15 Medic al mg Minutes, Branch Q8HPRN, [facility] 05/22/20 at 2215, Until Discontinu ed, [...] 05-23 Oral, ity of (TYLENOL) 03:13: Q6HPRN, [place] tablet 650 36 Starting Medic al mg [facility] Branch 05/22/20 at 2213, Until Discontinu ed, Routine, Pain (scale 1-3) morpHINE 2019-0 2020- No 4mg 4 mg, Slow Un piyush injection 4 05-22 IV Push, ity of mg 03:30: 03:13 ONCE, 1 [place] 00 :00 dose, [facility] 05/21/20 at Branch 2230, STAT piperacilli 2020-0 2020- No 3.375g 3.375 g, Univers n-tazobacta 05-20 IV ity of m (ZOSYN) 10:15: 22:14 [place], [place] 3.375 g in 00 :00 ONCE, 1 Medica l NaCl 0.9% dose, [facility] h (NS) 100 mL 05/20/20 at [facility]I-BAG 0515, 100 mL
Reas on for Anti-Infec tive: Documented Infection< br>Documen dain Infection Site: Abdominal< br>Duratio n of Therapy: 7 days iohexol 2020-0 2020- No 100mL 100 mL, Unive rs (OMNIPAQUE 05-20 Intravenou it y of 350 04:02: 04:02 s, ONCE, 1 [place] BULK-100 00 :00 dose, Sat Medica l mL) 9/26/20 at Branch injection 2315, 100 mL Routine [...] 1,000 mL 00 :00 IV Medical Piggyback, [place] ONCE, 1 dose, 05/19/20 at 2245, STAT ibuprofen 2020-0 Yes [id number] 800mg Take 1 U nivers 800 mg 9-18 tablet by ity of tablet 00:00: mouth [place] 00 every 6 Medical (six) Branch hours as needed for Pain (scale 4-6). levoFLOXaci 2020-0 Yes [id number] 750mg Take 1 [facility] n 750 mg 9-18 tablet by ity of tablet 00:00: mouth [place] 00 every 24 Medical (twenty-fo Branch ur) hours. loperamide 2020-0 Yes [id number] 2mg Take 1 U nivers 2 mg 9-18 capsule by ity of capsule 00:00: mouth [place] 00 daily. Medical Branch ibuprofen 2020-0 Yes [id number] 800mg Take 1 U nivers 800 mg 9-18 tablet by ity of tablet 00:00: mouth [place] 00 every 6 Medical (six) Branch hours as needed for Pain (scale 4-6). levoFLOXaci 2020-0 Yes [id number] 750mg Take 1 [facility] n 750 mg 9-18 tablet by ity of tablet 00:00: mouth [place] 00 every 24 Medical (twenty-fo Branch ur) hours. loperamide 2020-0 Yes [id number] 2mg Take 1 U nivers 2 mg 9-18 capsule by ity of capsule 00:00: mouth [place] 00 daily. Medical Branch ibuprofen 2020-0 Yes [id number] 800mg Take 1 U nivers 800 mg 9-18 tablet by ity of tablet 00:00: mouth [place] 00 every 6 Medical (six) Branch hours as needed for Pain (scale 4-6). levoFLOXaci 2020-0 Yes [id number] 750mg Take 1 Univers n 750 mg 9-18 tablet by ity of tablet 00:00: mouth [place] 00 every 24 Medical (twenty-fo Branch ur) hours. loperamide 2020-0 Yes [id number] 2mg Take 1 U nivers 2 mg 9-18 capsule by ity of capsule 00:00: mouth [place] 00 daily. Medical Branch ibuprofen 2020-0 Yes [id number] 800mg Take 1 U nivers 800 mg 9-18 tablet by ity of tablet 00:00: mouth [place] 00 every 6 Medical (six) Branch hours as needed for Pain (scale 4-6). levoFLOXaci 2020-0 Yes [id number] 750mg Take 1 [facility] n 750 mg 9-18 tablet by ity of tablet 00:00: mouth [place] 00 every 24 Medical (twenty-fo Branch ur) hours. loperamide 2020-0 Yes [id number] 2mg Take 1 U nivers 2 mg 9-18 capsule by ity of capsule 00:00: mouth [place] 00 daily. Medical Branch ibuprofen 2020-0 Yes [id number] 800mg Take 1 U nivers 800 mg 9-18 tablet by ity of tablet 00:00: mouth [place] 00 every 6 Medical (six) Branch hours as needed for Pain (scale 4-6). levoFLOXaci 2020-0 Yes [id number] 750mg Take 1 [facility] n 750 mg 9-18 tablet by ity of tablet 00:00: mouth [place] 00 every 24 Medical (twenty-fo Branch ur) hours. loperamide 2020-0 Yes [id number] 2mg Take 1 U nivers 2 mg 9-18 capsule by ity of capsule 00:00: mouth [place] 00 daily. Medical Branch ibuprofen 2020-0 Yes [id number] 800mg Take 1 U nivers 800 mg 9-18 tablet by ity of tablet 00:00: mouth [place] 00 every 6 Medical (six) Branch hours as needed for Pain (scale 4-6). levoFLOXaci 2020-0 Yes [id number] 750mg Take 1 [facility] n 750 mg 9-18 tablet by ity of tablet 00:00: mouth [place] 00 every 24 Medical (twenty-fo Branch ur) hours. loperamide 2020-0 Yes [id number] 2mg Take 1 U nivers 2 mg 9-18 capsule by ity of capsule 00:00: mouth [place] 00 daily. Medical Branch ibuprofen 2020-0 Yes [id number] 800mg Take 1 U nivers 800 mg 9-18 tablet by ity of tablet 00:00: mouth [place] 00 every 6 Medical (six) Branch hours as needed for Pain (scale 4-6). levoFLOXaci 2020-0 Yes [id number] 750mg Take 1 Univers n 750 mg 9-18 tablet by ity of tablet 00:00: mouth [place] 00 every 24 Medical (twenty-fo Branch ur) hours. loperamide 2020-0 Yes [id number] 2mg Take 1 U nivers 2 mg 9-18 capsule by ity of capsule 00:00: mouth [place] 00 daily. Medical Branch ibuprofen 2020-0 Yes [id number] 800mg Take 1 U nivers 800 mg 9-18 tablet by ity of tablet 00:00: mouth [place] 00 every 6 Medical (six) Branch hours as needed for Pain (scale 4-6). levoFLOXaci 2020-0 Yes [id number] 750mg Take 1 Univers n 750 mg 9-18 tablet by ity of tablet 00:00: mouth [place] 00 every 24 Medical (twenty-fo Branch ur) hours. loperamide 2020-0 Yes [id number] 2mg Take 1 U nivers 2 mg 9-18 capsule by ity of capsule 00:00: mouth [place] 00 daily. Medical Branch ibuprofen 2020-0 Yes [id number] 800mg Take 1 U nivers 800 mg 9-18 tablet by ity of tablet 00:00: mouth [place] 00 every 6 Medical (six) Branch hours as needed for Pain (scale 4-6). levoFLOXaci 2020-0 Yes [id number] 750mg Take 1 Univers n 750 mg 9-18 tablet by ity of tablet 00:00: mouth [place] 00 every 24 Medical (twenty-fo Branch ur) hours. loperamide 2020-0 Yes [id number] 2mg Take 1 U nivers 2 mg 9-18 capsule by ity of capsule 00:00: mouth [place] 00 daily. Medical Branch ibuprofen 2020-0 Yes [id number] 800mg Take 1 U nivers 800 mg 9-18 tablet by ity of tablet 00:00: mouth [place] 00 every 6 Medical (six) Branch hours as needed for Pain (scale 4-6). levoFLOXaci 2020-0 Yes [id number] 750mg Take 1 Univers n 750 mg 9-18 tablet by ity of tablet 00:00: mouth [place] 00 every 24 Medical (twenty-fo Branch ur) hours. loperamide 2020-0 Yes [id number] 2mg Take 1 U nivers 2 mg 9-18 capsule by ity of capsule 00:00: mouth [place] 00 daily. Medical Branch ibuprofen 2020-0 Yes [id number] 800mg Take 1 U nivers 800 mg 9-18 tablet by ity of tablet 00:00: mouth [place] 00 every 6 Medical (six) Branch hours as needed for Pain (scale 4-6). levoFLOXaci 2020-0 Yes [id number] 750mg Take 1 Univers n 750 mg 9-18 tablet by ity of tablet 00:00: mouth [place] 00 every 24 Medical (twenty-fo Branch ur) hours. loperamide 2020-0 Yes [id number] 2mg Take 1 U nivers 2 mg 9-18 capsule by ity of capsule 00:00: mouth [place] 00 daily. Medical Branch ibuprofen 2020-0 Yes [id number] 800mg Take 1 U nivers 800 mg 9-18 tablet by ity of tablet 00:00: mouth [place] 00 every 6 Medical (six) Branch hours as needed for Pain (scale 4-6). levoFLOXaci 2020-0 Yes [id number] 750mg Take 1 Univers n 750 mg 9-18 tablet by ity of tablet 00:00: mouth [place] 00 every 24 Medical (twenty-fo Branch ur) hours. loperamide 2020-0 Yes [id number] 2mg Take 1 U nivers 2 mg 9-18 capsule by ity of capsule 00:00: mouth [place] 00 daily. Medical Branch ibuprofen 2020-0 Yes [id number] 800mg Take 1 U nivers 800 mg 9-18 tablet by ity of tablet 00:00: mouth [place] 00 every 6 Medical (six) Branch hours as needed for Pain (scale 4-6). levoFLOXaci 2020-0 Yes [id number] 750mg Take 1 Univers n 750 mg 9-18 tablet by ity of tablet 00:00: mouth [place] 00 every 24 Medical (twenty-fo Branch ur) hours. loperamide 2020-0 Yes [id number] 2mg Take 1 U nivers 2 mg 9-18 capsule by ity of capsule 00:00: mouth [place] 00 daily. Medical Branch acetaminoph No [id number] 650mg Take 2 Univers en 325 mg 9-18 09-19 tablets by ity of tablet 00:00: 04:59 mouth [place] 00 :00 every 6 Medical (six) Branch hours as needed for Pain (scale 1-3). acetaminoph No [id number] 650mg Take 2 Univers en 325 mg 9-18 09-19 tablets by ity of tablet 00:00: 04:59 mouth [place] 00 :00 every 6 Medical (six) Branch hours as needed for Pain (scale 1-3). acetaminoph No [id number] 650mg Take 2 Univers en 325 mg 9-18 09-19 tablets by ity of tablet 00:00: 04:59 mouth [place] 00 :00 every 6 Medical (six) Branch hours as needed for Pain (scale 1-3). acetaminoph No [id number] 650mg Take 2 Univers en 325 mg 9-18 09-19 tablets by ity of tablet 00:00: 04:59 mouth [place] 00 :00 every 6 Medical (six) Branch hours as needed for Pain (scale 1-3). acetaminoph No [id number] 650mg Take 2 Univers en 325 mg 9-18 09-19 tablets by ity of tablet 00:00: 04:59 mouth [place] 00 :00 every 6 Medical (six) Branch hours as needed for Pain (scale 1-3). acetaminoph No [id number] 650mg Take 2 Univers en 325 mg 9-18 09-19 tablets by ity of tablet 00:00: 04:59 mouth [place] 00 :00 every 6 Medical (six) Branch hours as needed for Pain (scale 1-3). acetaminoph No [id number] 650mg Take 2 Univers en 325 mg 9-18 09-19 tablets by ity of tablet 00:00: 04:59 mouth [place] 00 :00 every 6 Medical (six) Branch hours as needed for Pain (scale 1-3). acetaminoph No [id number] 650mg Take 2 Univers en 325 mg 9-18 09-19 tablets by ity of tablet 00:00: 04:59 mouth [place] 00 :00 every 6 Medical (six) Branch hours as needed for Pain (scale 1-3). acetaminoph No [id number] 650mg Take 2 [facility] en 325 mg 9-18 09-19 tablets by ity of tablet 00:00: 04:59 mouth [place] 00 :00 every 6 Medical (six) Branch hours as needed for Pain (scale 1-3). acetaminoph No [id number] 650mg Take 2 [facility] en 325 mg 9-18 09-19 tablets by ity of tablet 00:00: 04:59 mouth [place] 00 :00 every 6 Medical (six) Branch hours as needed for Pain (scale 1-3). acetaminoph No [id number] 650mg Take 2 Univers en 325 mg 9-18 09-19 tablets by ity of tablet 00:00: 04:59 mouth [place] 00 :00 every 6 Medical (six) Branch hours as needed for Pain (scale 1-3). acetaminoph No [id number] 650mg Take 2 Univers en 325 mg 9-18 09-19 tablets by ity of tablet 00:00: 04:59 mouth [place] 00 :00 every 6 Medical (six) Branch hours as needed for Pain (scale 1-3). acetaminoph No [id number] 650mg Take 2 Univers en 325 mg 9-18 09-19 tablets by ity of tablet 00:00: 04:59 mouth [place] 00 :00 every 6 Medical (six) Branch hours as needed for Pain (scale 1-3). acetaminoph No [id number] 650mg Take 2 Univers en 325 mg 9-18 10-08 tablets by ity of tablet 00:00: 00:00 mouth [place] 00 :00 every 6 Medical (six) Branch hours as needed for Pain (scale 1-3). ibuprofen 2019- No [id number] 800mg Take 1 [facility] 800 mg 9-18 10-08 tablet by ity of tablet 00:00: 00:00 mouth [place] 00 :00 every 6 Medical (six) Branch hours as needed for Pain (scale 4-6). levoFLOXaci 2019- No [id number] 750mg Take 1 Univers n 750 mg 9-18 10-08 tablet by ity o f tablet 00:00: 00:00 mouth [place] 00 :00 every 24 Medical (twenty-fo Branch ur) hours. loperamide 2019-2019- No [id number] 2mg Take 1 [facility] 2 mg 9-18 [...] [place] mg 00 :28 dose on Medical [facility] Branch 05/09/20 at 1630, Until Discontinu ed, [...] :00 Intravenou Medic al s, ONCE, 1 [place] dose, [facility] 05/07/20 at 0815, Routine HYDROcodone 2020-0 Yes 1{tbl} 1 tablet, Univers -acetaminop 05-07 Oral, ity of hen (NORCO 13:00: Q6HPRN, [place] 5) 5-325 mg 00 Starting [facility] tablet 1 Mon [place] tablet 05/07/20 at 0800, Until Discontinu ed, Routine, Pain (scale 4-6) magnesium 2020-0 2020- No 2g 2 g, IV [facility] ers sulfate in 05-07 Piggyback, it y of water 2 13:00: 15:10 ONCE, 1 [place] gram/50 mL 00 :00 dose, Mon [facility] (4 %) 05/07/20 at [place] infusion 2 0800, g Routine ibuprofen 2020-0 Yes 800mg 800 mg, [facility] ers (IBU) 05-07 Oral, ity of tablet 800 12:45: Q6HPRN, [place] mg 22 Starting [facility] 05/07/20 at 0745, Until Discontinu ed, Routine, Pain (scale 4-6) FENTanyl PF 2020-0 2020- No Slow IV Un piyush (SUBLIMAZE 05-05 Push, PRN, it y of (PF)) 18:53: 20:05 Starting [place] injection 39 :03 [facility] 05/05/20 at Branch 1353, Until Discontinu ed, Routine lidocaine 2019-0 2020- No PRN, Univers 1% (PF) 05-05 Starting ity of (XYLOCAINE) 18:26: 18:26 [facility] injection 34 :34 05/05/20 at [facility] 1326, Branch Until Discontinu ed, Routine NaCl 0.9% 2020-0 2020- No CONTINUOUS U nivers (NS) bolus 05-05 PRN, ity of infusion 18:15: 18:15 Starting [place] 06 :06 [facility] 05/05/20 at Branch 1315, Until Discontinu ed, [...] 05-05 Oral, ity of (TYLENOL) 06:15: Q6HPRN, [place] tablet 650 23 Starting Medic al mg [...] Fri Branch 05/04/20 at 2215, Routine ondansetron 2020-0 2020- No 4mg 4 mg, Slow Univers (ZOFRAN 05-05 IV Push, ity of (PF)) 03:15: 03:18 ONCE, 1 [place] injection 4 00 :00 dose, Fri Med ical mg 05/04/20 at Branch 2215, JOÃO ketorolac 2020-0 2020- No 60mg 60 mg, Unive rs (TORADOL) 05-0310 Intramuscu ity of injection 05:00: 05:14 lar, [...] Indication s: acute pain ibuprofen 2020-0 Yes [id number] 400mg Take 2 Univers 200 mg 9-08 tablets by ity of tablet 00:00: mouth [place] 00 every 6 Medical (six) Branch hours as needed for Pain (scale 1-3). ibuprofen 2020-0 Yes [id number] 400mg Take 2 Univers 200 mg 9-08 tablets by ity of tablet 00:00: mouth [place] 00 every 6 Medical (six) Branch hours as needed for Pain (scale 1-3). ibuprofen 2020-0 Yes [id number] 400mg Take 2 Univers 200 mg 9-08 tablets by ity of tablet 00:00: mouth [place] 00 every 6 Medical (six) Branch hours as needed for Pain (scale 1-3). ibuprofen 2020-0 Yes [id number] 400mg Take 2 [facility] 200 mg 9-08 tablets by ity of tablet 00:00: mouth [place] 00 every 6 Medical (six) Branch hours as needed for Pain (scale 1-3). ibuprofen 2020-0 Yes [id number] 400mg Take 2 Univers 200 mg 9-08 tablets by ity of tablet 00:00: mouth [place] 00 every 6 Medical (six) Branch hours as needed for Pain (scale 1-3). ibuprofen 2020-0 Yes [id number] 400mg Take 2 [facility] 200 mg 9-08 tablets by ity of tablet 00:00: mouth [place] 00 every 6 Medical (six) Branch hours as needed for Pain (scale 1-3). ibuprofen 2020-0 Yes [id number] 400mg Take 2 [facility] 200 mg 9-08 tablets by ity of tablet 00:00: mouth [place] 00 every 6 Medical (six) Branch hours as needed for Pain (scale 1-3). acetaminoph 2020-0 1- No [id number] 650mg Take 2 Univers en 9-08 09-09 tablets by ity of (TYLENOL) 00:00: 04:59 mouth [place] 325 mg 00 :00 every 6 Medical tablet (six) Branch hours as needed for Pain (scale 4-6). acetaminoph 2020-0 2020- No [id number] 650mg Take 2 Univers en 9-08 09-09 tablets by ity of (TYLENOL) 00:00: 04:59 mouth [place] 325 mg 00 :00 every 6 Medical tablet (six) Branch hours as needed for Pain (scale 4-6). acetaminoph 2019-2020- No [id number] 650mg Take 2 Univers en 05-01 tablets by ity of (TYLENOL) 00:00: 04:59 mouth [place] 325 mg 00 :00 every 6 Medical tablet (six) Branch hours as needed for Pain (scale 4-6). acetaminoph 2019-2020- No [id number] 650mg Take 2 Univers en 05-01 tablets by ity of (TYLENOL) 00:00: 04:59 mouth [place] 325 mg 00 :00 every 6 Medical tablet (six) Branch hours as needed for Pain (scale 4-6). acetaminoph 2020- No [id number] 650mg Take 2 Univers en 05-01 tablets by ity of (TYLENOL) 00:00: 04:59 mouth [place] 325 mg 00 :00 every 6 Medical tablet (six) Branch hours as needed for Pain (scale 4-6). acetaminoph 2020- No [id number] 650mg Take 2 Univers en 05-01 tablets by ity of (TYLENOL) 00:00: 04:59 mouth [place] 325 mg 00 :00 every 6 Medical tablet (six) Branch hours as needed for Pain (scale 4-6). acetaminoph 2020- No [id number] 650mg Take 2 Univers en 05-01 tablets by ity of (TYLENOL) 00:00: 04:59 mouth [place] 325 mg 00 :00 every 6 Medical tablet (six) Branch hours as needed for Pain (scale 4-6). ciprofloxac 2019- No [id number] 750mg Take 1 Univers in HCl 750 05-01 tablet by ity of mg tablet 00:00: 04:59 mouth [place] 00 :00 every 12 Medical (twelve) Branch hours for 14 days. amoxicillin 2019-2019- No [id number] 1{tbl} Take 1 Univers -clavulanat 05-01 tablet by it y of e 00:00: 04:59 mouth 2 [place] (AUGMENTIN) 00 :00 (two) Medical 875-125 mg times Branch per tablet daily for 14 days. ciprofloxac 2019-2019- No [id number] 750mg Take 1 Univers in HCl 750 05-01 tablet by ity of mg tablet 00:00: 04:59 mouth [place] 00 :00 every 12 Medical (twelve) Branch hours for 14 days. amoxicillin 2019- No [id number] 1{tbl} Take 1 Univers -clavulanat 05-01 tablet by it y of e 00:00: 04:59 mouth 2 [place] (AUGMENTIN) 00 :00 (two) Medical 875-125 mg times Branch per tablet daily for 14 days. ciprofloxac 2019-2019- No [id number] 750mg Take 1 Univers in HCl 750 05-01 tablet by ity of mg tablet 00:00: 04:59 mouth [place] 00 :00 every 12 Medical (twelve) Branch hours for 14 days. amoxicillin 2019- No [id number] 1{tbl} Take 1 Univers -clavulanat 05-01 tablet by it y of e 00:00: 04:59 mouth 2 [place] (AUGMENTIN) 00 :00 (two) Medical 875-125 mg times Branch per tablet daily for 14 days. ciprofloxac 2019-2019- No [id number] 750mg Take 1 Univers in HCl 750 05-01 tablet by ity of mg tablet 00:00: 04:59 mouth [place] 00 :00 every 12 Medical (twelve) Branch hours for 14 days. amoxicillin 2019- No [id number] 1{tbl} Take 1 Univers -clavulanat 05-01 tablet by it y of e 00:00: 04:59 mouth 2 [place] (AUGMENTIN) 00 :00 (two) Medical 875-125 mg times Branch per tablet daily for 14 days. ciprofloxac 2019-2019- No [id number] 750mg Take 1 Univers in HCl 750 05-01 tablet by ity of mg tablet 00:00: 04:59 mouth [place] 00 :00 every 12 Medical (twelve) Branch hours for 14 days. amoxicillin 2019- No [id number] 1{tbl} Take 1 Univers -clavulanat 05-01 tablet by it y of e 00:00: 04:59 mouth 2 [place] (AUGMENTIN) 00 :00 (two) Medical 875-125 mg times Branch per tablet daily for 14 days. ciprofloxac 2020-0 2020- No [id number] 750mg Take 1 Univers in HCl 750 05-01 tablet by ity of mg tablet 00:00: 04:59 mouth [place] 00 :00 every 12 Medical (twelve) Branch hours for 14 days. amoxicillin 2019-0 2020- No [id number] 1{tbl} Take 1 Univers -clavulanat 05-01 tablet by it y of e 00:00: 04:59 mouth 2 [place] (AUGMENTIN) 00 :00 (two) Medical 875-125 mg times Branch per tablet daily for 14 days. ciprofloxac 2019- 2020- No [id number] 750mg Take 1 Univers in HCl 750 05-01 tablet by ity of mg tablet 00:00: 04:59 mouth [place] 00 :00 every 12 Medical (twelve) Branch hours for 14 days. amoxicillin 2019-0 2019- No [id number] 1{tbl} Take 1 Univers -clavulanat 05-01 tablet by it y of e 00:00: 04:59 mouth 2 [place] (AUGMENTIN) 00 :00 (two) Medical 875-125 mg times Branch per tablet daily for 14 days. acetaminoph 2020-0 2020- No [id number] 650mg Take 2 Univers en 05-01 tablets by ity of (TYLENOL) 00:00: 00:00 mouth [place] 325 mg 00 :00 every 6 Medical tablet (six) Branch hours as needed for Pain (scale 4-6). ibuprofen 2019-0 2020- No [id number] 400mg Take 2 Univers 200 mg 05-01 tablets by ity of tablet 00:00: 00:00 mouth [place] 00 :00 every 6 Medical (six) Branch hours as needed for Pain (scale 1-3). ciprofloxac 2019-0 2020- No [id number] 750mg Take 1 Univers in HCl 750 05-01 tablet by ity of mg tablet 00:00: 00:00 mouth [place] 00 :00 every 12 Medical (twelve) Branch hours for 14 days. amoxicillin 2019-0 2020- No [id number] 1{tbl} Take 1 Univers -clavulanat 05-01 tablet [...] 04-25 Oral, ity of e 01:00: Q12H, [place] (AUGMENTIN) 00 First dose Me dical 875-125 mg on Thu per tablet 04/24/20 at 1 tablet 2000, [...] of 350 23:30: 23:30 s, ONCE, 1 [place] BULK-100 00 :00 dose, Mon Medica l [...] 1,000 mL 00 :00 IV Medical Piggyback, [place] ONCE, 1 dose, 04/23/20 at 1130, STAT [...] 00 First dose Med ical mg on [facility] 04/21/20 at 1800, Until Discontinu ed, JOÃO
Re ason for Anti-Infec tive: Documented Infection< br>Documen dain Infection Site: Abdominal< br>Duratio n of Therapy: 7 days aspirin 2019-0 Yes 81mg 81 mg, Univers chewable 04-21 Oral, ity of tablet 81 14:00: DAILY, [place] mg 00 First dose Medical on [facility] 04/21/20 at 0900, Until Discontinu ed, Routine multivitami 2019-0 Yes 1{tbl} 1 tablet, Univers n tablet 1 04-21 Oral, ity of tablet 14:00: DAILY, [place] 00 First dose Medical on [facility] 04/21/20 at 0900, Until Discontinu ed, Routine amoxicillin 2019- 2020- No 500mg 500 mg, U nivers -pot 04-21 Oral, TID, ity of clavulanate 13:00: 14:44 First dose [place] 500 mg 00 :32 on [facility] (AUGMENTIN 04/21/20 at [facility] 500) 0800, 500-125 mg Until tablet [...] Q6HPRN, [place] mg 23 :14 Starting [facility] Fri Branch 04/20/20 at 1031, Until Thu05/02/20 at 0612, Routine, Pain (scale 7-10) D5W 0.45% 2019- No IV Univers NaCl 04-19 Infusion, ity of (1/2NS) 1 L 16:15: 11:41 at 20 [place] + KCL 20 00 :10 mL/hr, [facility] mEq CONTINUOUS Branch , Starting [place] 04/19/20 at 1115, Until Thu04/20/20 at 0641, Routine pantoprazol 2019-0 Yes 40mg 40 mg, Univ ers e 04-19 Oral, ity of (PROTONIX) 14:00: DAILY, [place] EC tablet 00 First dose Medi mariusz 40 mg on [facility] Branch 04/19/20 at 0900, Until Discontinu ed, Routine acetaminoph 2020-0 Yes 500mg 500 mg, Un piyush en 04-19 Oral, ity of (TYLENOL) 11:00: Q6HPRN, [place] tablet 500 00 Starting Medic al mg [facility] Branch 04/19/20 at 0600, Until Discontinu ed, [...] :34 First dose Med ical mg on [facility] Branch 04/17/20 at 2045, Until Discontinu ed, JOÃO
Re ason for Anti-Infec tive: Documented Infection< br>Documen dain Infection Site: Abdominal< br>Duratio n of Therapy: 7 days micafungin 2020- No 100mg 100 mg, IV [...] [place] 00 :03 First dose Medical on [facility] 04/17/20 at 0900, Until Discontinu ed, Routine lidocaine 2020- No PRN, Univers 1% (PF) 04-16 Starting ity of (XYLOCAINE) 21:17: 21:17 Mon [place] injection 53 :53 04/16/20 at [facility] 1617, Branch Until 04/16/20 at 1617, Routine FENTanyl PF 2020- No Slow IV Un piyush (SUBLIMAZE 04-16 Push, PRN, it y of (PF)) 21:16: 21:16 Starting [place] injection 07 :07 [facility] Medical 04/16/20 at Branch 1616, Until 04/16/20 at 1616, Routine midazolam 2019- No IV Push, Uni vers (VERSED) 04-16 PRN, ity of injection 21:16: 21:16 Starting [place] 07 :07 [facility] Medical 04/16/20 at [place] 1616, Until 04/16/20 at 1616, Routine piperacilli [...] dose, Mon Medica l mL) 04/16/20 at [place] injection 0215, 120 mL Routine DAPTOmycin 2019- No 500mg 500 mg, IV Univers (CUBICIN) 04-16 Piggyback, ity of 500 mg in 02:15: 01:11 Q24H ABX, [place] NaCl 0.9% 00 :00 4 doses, Medica l (NS) First dose Branch piggyback (after last reorder) on Thu04/15/20 at 2115, Last dose on Thu04/18/20 at [...] dose, [place] Branch 04/12/20 at 1200, Routine
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
R mitali for Anti-Infec tive: Documented Infection< br>Documen dain Infection Site: Abdominal< br>Duratio n of Therapy: 7 days
Re stricted use approved by: [employer] ibuprofen 2019- No 600mg 600 mg, Uni vers (IBU) 04-10 Oral, Q8H, ity of tablet 600 03:00: 10:59 First dose [place] mg 00 :06 on [facility] Medical 04/09/20 at Branch 2200, Until Discontinu ed, Routine micafungin 2019- No 100mg 100 mg, IV Univers (MYCAMINE) 04-10 Piggyback, it y of 100 mg in 02:45: 15:57 Q24H ABX, [place] NaCl 0.9% 00 :33 First dose Medi mariusz (NS) 100 mL on [facility] MINI-BAG 04/09/20 at 2145, Until Discontinu ed, 100 mL
R estricted use approved by: [employer]< br>Reason for Anti-Infec tive: Documented Infection< br>Documen dain Infection Site: Abdominal< br>Duratio n of Therapy: 7 days ampicillin- 2020- No 3g 3 g, IV Un piuysh sulbactam 04-10 Piggyback, ity of (UNASYN) 3 [...] [place] tablet 500 00 :23 on [facility] Medical mg 04/09/20 at Branch 1800, Until Discontinu ed, Routine Total 2020- 2020- No at 85 Univers Parenteral 04-09 mL/hr, ity of Nutrition 22:00: 22:18 2,040 mL, [place] Adult 00 :00 TPNCONTINU Medical OUS, 1 Branch dose, First dose (after last reorder) on Thu04/09/20 at 1700 KCL 2019- 2020- No IV Univers (POTASSIUM 04-09 Infusion, ity of CHLORIDE) 17:43: 13:52 TITRATE, [place] 20 mEq in 20 :43 Starting Medica l lactated [facility] ringers 04/09/20 at 1,000 mL 1243, infusion [...] 13:00: 14:50 dose on ([facility]) 00 :18 [facility] Medical solution 04/09/20 at Bran h 0800, [...] Univers en ADULT 04-07 IV ity of (IRMEV) 23:00: 14:28 Infusion, [place] injection 00 [...] IV ity of IV 20:00: 01:35 Piggyback, [place] Piggyback 00 :07 Q24H ABX, Medic al 400 mg First dose Branch on 04/07/20 at 1500, Until Discontinu ed, JOÃO multivitami 2019- 2020- No 15mL 15 mL, Uni vers n (CENTRUM) 04-07 08-28 Enteral, ity of solution 15 14:00: 15:31 DAILY, [place] mL 00 :33 First dose Medical (after Branch last modificati on) on 04/07/20 at 0900, Until Discontinu ed, Routine heparin 2019- 2020- No 5000U 5,000 Univers (porcine) 04-07 08-19 Units, ity of injection 11:00: 11:53 Subcutaneo [place] 5,000 Units 00 :30 us, Q8H, Medi [facility] First dose Branch on 04/07/20 [...] 2100, Until Discontinu ed, 50 mL sodium 0 Yes 1{bottl 473 mL (1 Uni vers [...] on Thu04/06/20 at 1800, Last dose on 8/15/20 at 1200, 500 mL
[place] cation: SEVERE [...] infusion , Starting 04/06/20 at 1600 magnesium 2019- No 4g 4 [...] Branch dose, Thu04/06/20 at 1515, STAT meropenem 2019-2019- No 1000mg 1,000 mg, Univers (MERREM) 04-06 08-18 IV ity of 1,000 mg in 19:30: 01:35 Piggyback, [place] NaCl 0.9% 00 :07 Administer Medi mariusz (NS) 100 mL over 180 Bran ch IV Minutes, piggyback Q8H ABX, First dose (after last modificati on) on Thu04/06/20 at 1430, Until Discontinu ed, JOÃO
Re stricted use approved by: [employer]
R mitali for Anti-Infec tive: Empiric Therapy for Suspected Infection< br>Empiric Therapy Site: Abdominal< br>Duratio n of therapy: 7 days D5W-LR IV 2019-2019- No 1000mL at 125 Uni vers infusion 04-06 08-15 mL/hr, IV ity o f 1,000 mL 19:30: 02:50 Infusion, [place] 00 :43 CONTINUOUS Medical , Starting Branch Thu04/06/20 at 1430, Until Thu04/06/20 at 2150, Routine lactated 2019- 2020- No 500mL at 999 Unive rs ringers IV 04-06 08-14 mL/hr, 500 it y of infusion 19:30: 19:30 mL, [place] 500 mL 00 :00 Intravenou Medical s, ONCE, 1 Branch dose, Thu04/06/20 at 1430, Routine NORepinephr 2019- 2020- No .05ug/k 0.05-1.5 Univers ine 4 [...] dose, contact prescriber .
fentaNYL PF 2019- 2020- No 25ug/h 25-200 U nivers (SUBLIMAZE) [...] 2 mg, Slow U nivers (ATIVAN) 04-06 08-16 IV Push, ity of injection 2 16:46: 14:23 Q4HPRN, [place] mg 54 :22 Starting Medical Fri Branch 04/06/20 at 1146, Until [place] 04/08/20 at 0923, Routine, Agitation, Sedation lactated [...] 00 :35 Fri Medical injection 04/06/20 at [facility] 1110, Until Thu04/06/20 at 1129, Routine, Intra-op sodium 2020-0 2020- No ONCE INTRA Univ ers bicarbonate 04-06 PROCEDURE, i ty of 8.4 % (1 16:10: 16:29 [place] mEq/mL) 00 :35 Fri Medical injection 04/06/20 at [facility] 1110, Until Thu04/06/20 at 1129, Routine, [...] 15:39: 16:29 Starting [place] 00 :35 Thu Medical 04/06/20 at [place] 1039, Until Thu04/06/20 at 1129, Routine, Intra-op EPINEPHrine 2020-0 2020- No CONTINUOUS Univers 1 mg in 04-06 PRN, ity of NaCl 0.9% 15:29: 16:29 Starting [place] (NS) 00 :35 Fri Medical infusion 04/06/20 at [facility] 1029, Until Thu04/06/20 at 1129, Routine, Intra-op EPINEPHrine 2020-0 2020- No CONTINUOUS Univers 1 mg in 04-06 PRN, ity of NaCl 0.9% 15:29: 16:29 Starting [place] (NS) 00 :35 Fri Medical infusion 04/06/20 at [facility] 1029, Until Thu04/06/20 at 1129, Routine, Intra-op piperacilli 2020-0 2020- No CONTINUOUS Univers n-tazobacta 04-06 PRN, ity of m (ZOSYN) 14:57: 16:29 Starting [place] 3.375 g in 00 :35 Fri Medical NaCl 0.9% 04/06/20 at [facility] (NS) 100 mL 0957, infusion Until Discontinu ed, 100 mL, Intra-op piperacilli 2020-0 2020- No CONTINUOUS Univers n-tazobacta 04-06 PRN, ity of m (ZOSYN) 14:57: 16:29 Starting [place] 3.375 g in 00 :35 [facility] Medical NaCl 0.9% 04/06/20 at [facility] (NS) 100 mL 0957, infusion Until Discontinu ed, 100 mL, Intra-op EPINEPHrine 2020-0 2020- No ONCE INTRA Univers 1:1,000 (1 04-06 PROCEDURE, it y of mg/mL) 14:54: 16:29 Starting [place] (ADRENALIN) 00 :35 Fri Medical injection 04/06/20 at [facility] 0954, Until Discontinu ed, Routine, Intra-op EPINEPHrine 2020-0 2020- No ONCE INTRA Univers 1:1,000 (1 04-06 PROCEDURE, it y of mg/mL) 14:54: 16:29 Starting [place] (ADRENALIN) 00 :35 Fri Medical injection 04/06/20 at [facility] 0954, Until Discontinu ed, Routine, Intra-op NORepinephr 2020-0 2020- No CONTINUOUS Univers ine 04-06 PRN, ity of (LEVOPHED) 14:39: 16:29 [place] 4 mg in 00 :35 Fri Medical NaCl 0.9% 04/06/20 at [facility] (NS) 250 mL 0939, infusion Intra-op NORepinephr 2020-0 2020- No CONTINUOUS Univers ine 04-06 PRN, ity of (LEVOPHED) 14:39: 16:29 [place] 4 mg in 00 :35 Fri Medical NaCl 0.9% 04/06/20 at [facility] (NS) 250 mL 0939, infusion Intra-op [...] 16:29 INTRA [place] injection 00 :35 PROCEDURE, [facility] Starting Branch 04/06/20 at 0922, Until Thu04/06/20 at 1129, Routine, Intra-op phenylephri 2020-0 2020- No Intravenou Univers ne 04-06-14 s, ONCE ity of (VAZCULEP) 14:22: 16:29 INTRA [place] injection 00 :35 PROCEDURE, [facility] Starting Branch 04/06/20 at 0922, Until Thu04/06/20 [...] l Fri Branch 04/06/20 at 0915, Until 04/06/20 at 1129, Routine, Intra-op propofol IV 2020-0 2020- No ONCE INTRA Univers infusion 04-06 PROCEDURE, ity of 14:15: 16:29 Starting [place] 00 :35 [facility] 04/06/20 at Branch 0915, Until Thu04/06/20 at 1129, Routine, Intra-op lidocaine 2020-0 2020- No ONCE INTRA U nivers 1% 04-06 PROCEDURE, ity of (XYLOCAINE) 14:15: 16:29 Starting [place] 100 mg/10 00 :35 [facility] Medical mL (1 %) 04/06/20 at [facility] h injection 0915, Until Thu04/06/20 at 1129, Routine, Intra-op FENTanyl PF 2020-0 2020- No ONCE INTRA Univers (SUBLIMAZE 04-06 PROCEDURE, it y of (PF)) 14:15: 16:29 Starting [place] injection 00 :35 [facility] 04/06/20 at Branch 0915, Until Thu04/06/20 at 1129, Routine, Intra-op albumin 2020-0 2020- No CONTINUOUS Uni vers (ALBUMINAR- 04-06 PRN, ity of 5) 5 % 14:10: 16:29 Starting [place] injection 00 :35 [facility] 04/06/20 at Branch 0910, Until Discontinu ed, Intra-op lactated 2020-0 2020- No CONTINUOUS Un piyush ringers IV 04-06 PRN, ity of infusion 14:10: 16:29 Starting [place] 00 :35 [facility] 04/06/20 at Branch 0910, Until Discontinu ed, Routine, Intra-op albumin 2020-0 2020- No CONTINUOUS Uni vers (ALBUMINAR- 04-06 PRN, ity of 5) 5 % 14:10: 16:29 Starting [place] injection 00 :35 [facility] 04/06/20 at Branch 0910, Until Discontinu ed, Intra-op lactated 2020-0 2020- No CONTINUOUS Un piyush ringers IV 04-06 PRN, ity of infusion 14:10: 16:29 Starting [place] 00 :35 [facility] 04/06/20 at Branch 0910, Until Discontinu ed, [...] Last dose on Thu04/04/20 at 1200, Routine
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
Restricte d use approved by: HELENE MEDELLIN - SURGERY/GE NERAL heparin 2019- No 5000U 5,000 Univers (porcine) 04-03 Units, ity of injection 12:00: 12:02 Subcutaneo [place] 5,000 Units 00 :00 , ONCE, Med ical 1 dose, [facility] 04/03/20 at 0700, Routine gabapentin 2019- No 300mg 300 mg, Un piyush (NEURONTIN) 04-03 Oral, ity of 250 mg/5 mL 12:00: 12:02 ONCE, 1 [place] solution 00 :00 dose, [facility] Medica l 300 mg 04/03/20 at Branch 0700, Routine D5W 0.45% 2019- No IV Univers NaCl 04-02 Infusion, ity of (1/2NS) 1 L 23:30: 17:59 at 125 [place] + KCL 20 00 :42 mL/hr, Medical mEq CONTINUOUS [place] , Starting 04/02/20 at 1830, Until 04/04/20 at 1259, Routine NaCl 0.9% 2019- No 1000mL at 999 Uni vers (NS) bolus 04-02 mL/hr, ity of infusion 22:45: 21:48 1,000 mL, [place] 1,000 mL 00 :00 IV Medical Piggyback, [place] ONCE, 1 dose, 04/02/20 at 1745, STAT pantoprazol 2019-2019- No 40mg 40 mg, IV Univers e 04-02 Piggyback, ity of (PROTONIX) 00:15: 10:49 Q24H, [place] 40 mg in 00 :10 First dose Medic al NaCl 0.9% on [place] Branch (NS) 100 mL 04/01/20 at MINI-BAG 1915, Until Discontinu ed, 100 mL D5W 0.45% 2019-2019- No IV Univers NaCl 04-02 Infusion, ity of (1/2NS) 1 L 00:15: 23:16 at 150 [place] + KCL 20 00 :16 mL/hr, Medical mEq CONTINUOUS Branch , Starting [place] 04/01/20 at 1915, Until 04/02/20 at 1816, Routine acetaminoph 2019- No 650mg 650 mg, U nivers en 04-01 Oral, ity of (TYLENOL) 23:11: 21:31 Q6HPRN, [place] tablet 650 57 :27 Starting Medic al mg [place] 04/01/20 Branch at 1811, Until 04/03/20 at 1631, Routine, Pain (scale 1-3), Pain (scale 4-6) NaCl 0.9% 2019- No 1000mL at 999 Uni vers (NS) bolus 04-01 mL/hr, ity of infusion 23:10: 00:18 1,000 mL, [place] 1,000 mL 00 :00 IV Medical Piggyback, [place] ONCE, 1 dose, [place] 04/01/20 at 1815, STAT lactulose 2019- No 15mL 15 mL, Unive rs (CEPHULAC) 04-01 Oral, ity of solution 15 16:15: 16:01 ONCE, 1 [place] mL 00 :00 dose, [facility] 04/01/20 at Branch 1115, Routine Polyethylen 2020- No 17g 17 g, Univ ers e Glycol 03-31 Oral, BID ity o f 3350 15:45: 23:13 MEALS, [place] (MIRALAX) 00 :14 First dose Medi mariusz powder 17 g on [facility] 03/31/20 at 1045, Until Discontinu ed, Routine enoxaparin 2019-2019- No 40mg 40 mg, Univ ers (LOVENOX) 03-31 Subcutaneo ity of injection 14:00: 10:50 us, DAILY, [place] 40 mg 00 :07 First dose Medical on [facility] 03/31/20 at 0900, Until Discontinu ed, Routine [...] at Branch 1815, JOÃO FENTanyl PF 2019- No 50ug 50 mcg, [...] Thu03/28/20 at 0800, Routine metoclopram 2020-0 Yes [id number] 5mg Take 1 Univers tammi HCl 8-05 tablet by ity of (REGLAN) 5 00:00: mouth [place] mg tablet 00 every 12 Medica l (twelve) Branch hours as needed for Nausea and Vomiting (N/V) (constipat ion). metoclopram 2020-0 Yes [id number] 5mg Take 1 Univers tammi HCl 8-05 tablet by ity of (REGLAN) 5 00:00: mouth [place] mg tablet 00 every 12 Medica l (twelve) Branch hours as needed for Nausea and Vomiting (N/V) (constipat ion). metoclopram 2020-0 Yes [id number] 5mg Take 1 Univers tammi HCl 8-05 tablet by ity of (REGLAN) 5 00:00: mouth [place] mg tablet 00 every 12 Medica l (twelve) Branch hours as needed for Nausea and Vomiting (N/V) (constipat ion). metoclopram 2020-0 Yes [id number] 5mg Take 1 Univers tammi HCl 8-05 tablet by ity of (REGLAN) 5 00:00: mouth [place] mg tablet 00 every 12 Medica l (twelve) Branch hours as needed for Nausea and Vomiting (N/V) (constipat ion). metoclopram 2020-0 2020- No [id number] 5mg Take 1 Univers tammi HCl 8-05 [...] IV Push, ity of (PF)) 02:46: Q6HPRN, [place] injection 4 11 Starting Medi mariusz mg [place] 03/25/20 Branch at 2146, Until Discontinu ed, Routine, Nausea and Vomiting (N/V) acetaminoph 2020-0 Yes 650mg 650 mg, Un piyush en 03 Oral, ity of (TYLENOL) 02:46: Q6HPRN, [place] tablet 650 05 Starting Medic al mg [place] 03/25/20 Branch at 2146, Until Discontinu ed, [...] 1,000 mL 00 :00 IV Medical Infusion, [place] ONCE, 1 dose, 03/25/20 at 1945, JOÃO enoxaparin 2020-0 Yes 40mg 40 mg, Unive rs (LOVENOX) 7-11 Subcutaneo ity of injection 14:00: us, DAILY, [place] 40 mg 00 First dose Medical on Sat [place] 03/03/20 at 0900, Until Discontinu ed, Routine lactated 2020-0 Yes 1000mL at 100 Unive rs ringers IV 7-11 mL/hr, ity of infusion 04:15: 1,000 mL, [place] 1,000 mL 00 IV Medical Infusion, Branch CONTINUOUS , Starting Thu03/02/20 at 2315, Until Discontinu ed, Routine ondansetron 2020-0 Yes 4mg 4 mg, Slow Univers (ZOFRAN 7-11 IV Push, ity of (PF)) 04:05: Q6HPRN, [place] injection 4 40 Starting Medi mariusz mg Fri [place] 03/02/20 at 2305, Until Discontinu ed, Routine, Nausea and Vomiting (N/V) acetaminoph 2020-0 Yes 650mg 650 mg, Un piyush en 7-11 Oral, ity of (TYLENOL) 04:05: Q6HPRN, [place] tablet 650 30 Starting Medic al mg Fri [place] 03/02/20 at 2305, Until Discontinu ed, Routine, Pain (scale 1-3) Polyethylen 2020-0 Yes [id number] 17g Take 1 Univers e Glycol 7-07 Packet by ity of 3350 17 00:00: mouth [place] gram powder 00 daily. Medica l Branch Polyethylen 2020-0 Yes [id number] 17g Take 1 Univers e Glycol 7-07 Packet by ity of 3350 17 00:00: mouth [place] gram powder 00 daily. Medica l Branch Polyethylen 2020-0 Yes [id number] 17g Take 1 Univers e Glycol 7-07 Packet by ity of 3350 17 00:00: mouth [place] gram powder 00 daily. Medica l Branch Polyethylen 2020-0 Yes [id number] 17g Take 1 Univers e Glycol 7-07 Packet by ity of 3350 17 00:00: mouth [place] gram powder 00 daily. Medica l Branch Polyethylen 2020-0 2020- No [id number] 17g Take 1 Univers e Glycol 7-07 08-05 Packet by ity o f 3350 17 00:00: 00:00 mouth [place] gram powder 00 :[address] [facility]-0 Yes 17g 17 g, Unive rs e Glycol 7-06 Oral, ity of 3350 18:15: DAILY, [place] (MIRALAX) 00 First dose Medi mariusz powder 17 g on Thu [place] 02/27/20 at 1315, Until Discontinu ed, Routine enoxaparin 2020-0 Yes 40mg 40 mg, Unive rs (LOVENOX) 7-06 Subcutaneo ity of injection 14:00: us, DAILY, [place] 40 mg 00 First dose Medical on [facility] 02/27/20 at 0900, Until Discontinu ed, Routine polyethylen 2020-0 Yes [id number] 17g Take 17 g Univers e glycol 17 7-06 by mouth ity of gram/dose 00:00: daily. [place] powder [facility] polyethylen 2020-0 Yes [id number] 17g Take 17 g Univers e glycol 17 7-06 by mouth ity of gram/dose 00:00: daily. [place] powder 00 [facility] polyethylen 2020-0 Yes [id number] 17g Take 17 g Univers e glycol 17 7-06 by mouth ity of gram/dose 00:00: daily. [place] powder [facility] polyethylen 2020-0 Yes [id number] 17g Take 17 g Univers e glycol 17 7-06 by mouth ity of gram/dose 00:00: daily. [place] powder [facility] polyethylen 2020-0 Yes [id number] 17g Take 17 g Univers e glycol 17 7-06 by mouth ity of gram/dose 00:00: daily. [place] powder [facility] polyethylen 2020-0 Yes [id number] 17g Take 17 g Univers e glycol 17 7-06 by mouth ity of gram/dose 00:00: daily. [place] powder [facility] polyethylen 2020-0 Yes [id number] 17g Take 17 g Univers e glycol 17 7-06 by mouth ity of gram/dose 00:00: daily. [place] powder 00 [facility] polyethylen 2020-0 Yes [id number] 17g Take 17 g Univers e glycol 17 7-06 by mouth ity of gram/dose 00:00: daily. [place] powder 00 Medical Branch polyethylen 2020-0 2020- No [id number] 17g Take 17 g Univers e glycol 17 - 09-08 by mouth ity of gram/dose 00:00: 00:00 daily. [place] powder 00 :00 Medical Branch iohexol 2019-0 2020- No 120mL 120 mL, Unive rs (OMNIPAQUE 02-25- Intravenou it y of 350 18:30: 18:30 s, ONCE, 1 [place] BULK-100 00 :00 dose, [facility] [...] 705 Oral, ity of (TYLENOL) 15:01: Q6HPRN, [place] tablet 650 46 Starting Medic al mg 02/26/20 Branch at 1001, Until Discontinu ed, Routine, Pain (scale 1-3), Pain (scale 4-6) pantoprazol 2019-0 2020- No [id number] 40mg Take 1 Univers e 40 mg EC 614 tablet by ity of tablet 00:00: 04:59 mouth [place] 00 :00 daily for Medical 90 days. Branch pantoprazol 2020-0 2020- No [id number] 40mg Take 1 Univers e 40 mg EC 6-08 05-14 tablet by ity of tablet 00:00: 04:59 mouth [place] 00 :00 daily for Medical 90 days. Branch pantoprazol 2020-0 2020- No [id number] 40mg Take 1 Univers e 40 mg EC 6-08 05-14 tablet by ity of tablet 00:00: 04:59 mouth [place] 00 :00 daily for Medical 90 days. Branch pantoprazol 2019-0 2020- No [id number] 40mg Take 1 Univers e 40 mg EC 6-15 -14 tablet by ity of tablet 00:00: 04:59 mouth [place] 00 :00 daily for Medical 90 days. Branch pantoprazol 2020-0 2020- No [id number] 40mg Take 1 Univers e 40 mg EC 6-15 14 tablet by ity of tablet 00:00: 04:59 mouth [place] 00 :00 daily for Medical 90 days. Branch pantoprazol 2020-0 2020- No [id number] 40mg Take 1 Univers e 40 mg EC 6-15 14 tablet by ity of tablet 00:00: 04:59 mouth [place] 00 :00 daily for Medical 90 days. Branch pantoprazol 2020-0 2020- No [id number] 40mg Take 1 Univers e 40 mg EC 6-15 05-07 tablet by ity of tablet 00:00: 04:59 mouth [place] 00 :00 daily for Medical 90 days. Branch pantoprazol 2019-0 2020- No [id number] 40mg Take 1 Univers e 40 mg EC 6-15 05-07 tablet by ity of tablet 00:00: 04:59 mouth [place] 00 :00 daily for Medical 90 days. Branch pantoprazol 2019-0 2020- No [id number] 40mg Take 1 Univers e 40 mg EC 6-05-07 tablet by ity of tablet 00:00: 04:59 mouth [place] 00 :00 daily for Medical 90 days. Branch pantoprazol 2020-0 2020- No [id number] 40mg Take 1 Univers e 40 mg EC 6-15 05-07 tablet by ity of tablet 00:00: 04:59 mouth [place] 00 :00 daily for Medical 90 days. Branch pantoprazol 2020-0 2020- No [id number] 40mg Take 1 Univers e 40 mg EC 6-15 14 tablet by ity of tablet 00:00: 04:59 mouth [place] 00 :00 daily for Medical 90 days. Branch pantoprazol 2020-0 2020- No [id number] 40mg Take 1 Univers e 40 mg EC 6-15 14 tablet by ity of tablet 00:00: 04:59 mouth [place] 00 :00 daily for Medical 90 days. Branch pantoprazol 2020-0 2020- No [id number] 40mg Take 1 Univers e 40 mg EC 6-15 -08 tablet by ity of tablet 00:00: 00:00 mouth [place] 00 :00 daily for Medical 90 days. Branch docusate 2020-0 2020- No [id number] 100mg Take 1 Univers 100 mg 6-14 09-13 capsule by ity of capsule 00:00: 04:59 mouth 2 [place] 00 :00 (two) Medical times Branch daily for 90 days. docusate 2020-0 2020- No [id number] 100mg Take 1 Univers 100 mg 6-14 09-13 capsule by ity of capsule 00:00: 04:59 mouth 2 [place] 00 :00 (two) Medical times Branch daily for 90 days. docusate 2020-0 2020- No [id number] 100mg Take 1 Univers 100 mg 6-14 09-13 capsule by ity of capsule 00:00: 04:59 mouth 2 [place] 00 :00 (two) Medical times Branch daily for 90 days. docusate 2020-0 2020- No [id number] 100mg Take 1 Univers 100 mg 6-14 09-13 capsule by ity of capsule 00:00: 04:59 mouth 2 [place] 00 :00 (two) Medical times Branch daily for 90 days. docusate 2020-0 2020- No [id number] 100mg Take 1 Univers 100 mg 6-14 09-13 capsule by ity of capsule 00:00: 04:59 mouth 2 [place] 00 :00 (two) Medical times Branch daily for 90 days. docusate 2020-0 2020- No [id number] 100mg Take 1 Univers 100 mg 6-14 09-13 capsule by ity of capsule 00:00: 04:59 mouth 2 [place] 00 :00 (two) Medical times Branch daily for 90 days. docusate 2020-0 2020- No [id number] 100mg Take 1 Univers 100 mg 6-14 09-13 capsule by ity of capsule 00:00: 04:59 mouth 2 [place] 00 :00 (two) Medical times Branch daily for 90 days. docusate 2020-0 2020- No [id number] 100mg Take 1 Univers 100 mg 6-14 09-13 capsule by ity of capsule 00:00: 04:59 mouth 2 [place] 00 :00 (two) Medical times Branch daily for 90 days. docusate 2020-0 2020- No [id number] 100mg Take 1 Univers 100 mg 6-14 09-13 capsule by ity of capsule 00:00: 04:59 mouth 2 [place] 00 :00 (two) Medical times Branch daily for 90 days. docusate 2020-0 2020- No [id number] 100mg Take 1 Univers 100 mg 02-04 capsule by ity of capsule 00:00: 04:59 mouth 2 [place] 00 :00 (two) Medical times Branch daily for 90 days. docusate 2020-0 2020- No [id number] 100mg Take 1 Univers 100 mg 02-04 capsule by ity of capsule 00:00: 04:59 mouth 2 [place] 00 :00 (two) Medical times Branch daily for 90 days. docusate 2020-0 2020- No [id number] 100mg Take 1 Univers 100 mg 02-04 capsule by ity of capsule 00:00: 04:59 mouth 2 [place] 00 :00 (two) Medical times Branch daily for 90 days. docusate 2020-0 2020- No [id number] 100mg Take 1 Univers 100 mg 02-04 capsule by ity of capsule 00:00: 00:00 mouth 2 [place] 00 :00 (two) Medical times Branch daily for 90 days. pantoprazol 2020-0 Yes 40mg 40 mg, Univ ers e 01-28 Oral, ity of (PROTONIX) 14:00: DAILY, [place] EC tablet 00 First dose Medi mariusz 40 mg on [facility] Branch 01/29/20 at 0900, Until [...] E)) 00 First dose Medical chewable on [facility] Branch tablet 80 01/28/20 at mg 2345, [...] [place] 10 [place] :00 dose, [facility] 01/28/20 at Branch 2200, Routine ondansetron 2019-0 Yes 4mg 4 mg, Slow Univers (ZOFRAN 01-28 IV Push, ity of (PF)) 01:32: Q6HPRN, [place] injection 4 44 Starting Medi mariusz mg 01/28/20 Branch at 2031, Until Discontinu ed, Routine, Nausea and Vomiting (N/V) traMADol 2019-0 2020- No 50mg 50 mg, Univer s (ULTRAM) 01-28-09 Oral, ity of tablet 50 01:32: 01:31 Q8HPRN, [place] mg [place] :25 Starting Medical 01/28/20 Branch at 2031, Until 01/30/20 at 2030, Routine, Pain (scale 4-6) acetaminoph 2019-0 Yes 650mg 650 mg, Un piyush en 07 Oral, ity of (TYLENOL) 01:32: Q6HPRN, [place] tablet 650 14 Starting Medic al mg 01/28/20 Branch at 2031, Until Discontinu ed, Routine, Pain (scale 1-3) morpHINE 2020-0 2020- No 4mg 4 mg, Slow Un piyush injection 4 01-28 06-06 IV Push, ity of mg 00:45: 23:55 ONCE, 1 [place] 00 :00 dose, [facility] 01/28/20 at Branch 1945, STAT iohexol 2020-0 2020- No 100mL 100 mL, Unive rs (OMNIPAQUE 01-28-07 Intravenou it y of 350 00:00: 00:00 [...] dose, Tue Medica l mL) 01/24/20 at [place] injection 2114, 100 mL Routine morpHINE 2019- No 4mg 4 mg, Slow Un piyush injection 4 01-2403 IV Push, ity of mg 01:45: 00:43 ONCE, 1 [place] 00 :00 dose, Tue Medical 01/24/20 at Branch 2044, Routine ondansetron 2019- No 4mg 4 mg, Slow Univers (ZOFRAN 01-24 IV Push, ity of (PF)) 00:45: 00:58 Administer [place] injection 4 00 :00 over 15 Medic al mg Minutes, Branch ONCE, 1 dose, [facility] 01/24/20 at 194, STAT NaCl 0.9% 2019- No 1000mL at 999 Uni vers (NS) bolus 01-24 mL/hr, ity of infusion 00:45: 01:15 1,000 mL, Javi as 1,000 mL 00 :00 IV Medical Infusion, [place] ONCE, 1 dose, [facility] 01/24/20 at 5, JOÃO mineral oil 2019- No [id number] 30mL Take 30 mL Univers oral liquid - 05-05 by mouth ity of 00:00: 04:59 daily for [place] 00 :00 14 days. [facility] tamsulosin 2019-0 Yes .4mg QD Take 1 [...] Immunizations Ordered Filled Immunization Date Status Comments [facility] e Immunization Name Name Influenza Virus 2021-06-04 Completed Universit y of Vaccine Quad IM, 00:00:00 [place] Me dical Preserv and ABX Branch Free 2-64 YRS Influenza Virus 2021-06-04 Completed Universit y of Vaccine Quad IM, 00:00:00 [place] Me dical Preserv and ABX Branch Free 6 MO-64 YRS Influenza Virus 2021-06-04 Completed Universit y of Vaccine Quad IM, 00:00:00 [place] Me dical Preserv and ABX Branch Free [...] Universit y of Vaccine Quad IM, 00:00:00 [facility] dical Preserv and ABX Branch Free 6 MO-64 YRS Influenza Virus 2021-06-04 Completed Universit y of Vaccine Quad IM, 00:00:00 [facility] dical Preserv and ABX Branch Free 6 MO-64 YRS Influenza Virus 2021-06-04 Completed Universit y of Vaccine Quad IM, 00:00:00 [facility] dical Preserv and ABX Branch Free 6 MO-64 YRS Influenza Virus 2020-08-24 Completed Universit y of Vaccine Quad .5 mL 00:00:00 [place] Medical IM 6+ MO Branch Influenza Virus 2020-08-24 Completed Universit y of Vaccine Quad .5 mL 00:00:00 [place] Medical IM 6+ MO Branch Influenza Virus 2020-08-24 Completed Universit y of Vaccine Quad .5 mL 00:00:00 [place] Medical IM 6+ MO Branch Influenza Virus 2020-08-24 Completed Universit y of Vaccine Quad .5 mL 00:00:00 [place] Medical IM 6+ MO Branch Influenza Virus 2020-08-24 Completed Universit y of Vaccine Quad .5 mL 00:00:00 [place] Medical IM 6+ MO Branch Influenza Virus 2020-08-24 Completed Universit y of Vaccine Quad .5 mL 00:00:00 [place] Medical IM 6+ MO Branch Influenza Virus 2020-08-24 Completed Universit y of Vaccine Quad .5 mL 00:00:00 [place] Medical IM 6+ MO Branch Influenza Virus 2020-08-24 Completed Universit y of Vaccine Quad .5 mL 00:00:00 [place] Medical IM 6+ MO Branch Influenza Virus 2020-08-24 Completed Universit y of Vaccine Quad .5 mL 00:00:00 [place] Medical IM 6+ MO Branch Influenza Virus 2020-08-24 Completed Universit y of Vaccine Quad .5 mL 00:00:00 [place] Medical IM 6+ MO Branch Influenza Virus 2020-08-24 Completed Universit y of Vaccine Quad .5 mL 00:00:00 [place] Medical IM 6+ MO Branch Influenza Virus 2020-08-24 Completed Universit y of Vaccine Quad .5 mL 00:00:00 [place] Medical IM 6+ MO Branch Influenza Virus 2020-08-24 Completed Universit y of Vaccine Quad .5 mL 00:00:00 [place] Medical IM 6+ MO Branch Influenza Virus [...] y of Vaccine Quad .5 mL 00:00:00 [place] Medical IM 6+ MO Branch Influenza Virus 2020-08-24 Completed Universit y of Vaccine Quad .5 mL 00:00:00 [place] Medical IM 6+ MO Branch Influenza Virus 2020-08-24 Completed Universit y of Vaccine Quad .5 mL 00:00:00 [place] Medical IM 6+ MO Branch PPD 2017-04-14 Completed [facility] 00:00:00 PPD 2017-04-14 Completed [facility] 00:00:00 Influenza Virus 2016-05-16 Completed Universit y of Vaccine Quad IM 3+ 00:00:00 [facility] Influenza Virus 2016-05-16 Completed Universit y of Vaccine Quad IM 3+ 00:00:00 [facility] Influenza Virus 2016-05-16 Completed Universit y of Vaccine Quad IM 3+ 00:00:00 [facility] Influenza Virus 2016-05-16 Completed Universit y of Vaccine Quad IM 3+ 00:00:00 [facility] Influenza Virus 2016-05-16 Completed Universit y of Vaccine Quad IM 3+ 00:00:00 [facility] Influenza Virus 2016-05-16 Completed Universit y of Vaccine Quad IM 3+ 00:00:00 [facility] Influenza Virus 2016-05-16 Completed Universit y of Vaccine Quad IM 3+ 00:00:00 [facility] Influenza Virus 2016-05-16 Completed Universit y of Vaccine Quad IM 3+ 00:00:00 [facility] Influenza Virus 2016-05-16 Completed Universit y of Vaccine Quad IM 3+ 00:00:00 [facility] Influenza Virus 2016-05-16 Completed Universit y of Vaccine Quad IM 3+ 00:00:00 [facility] Influenza Virus 2016-05-16 Completed Universit y of Vaccine Quad IM 3+ 00:00:00 [facility] Influenza Virus 2016-05-16 Completed Universit y of Vaccine Quad IM 3+ 00:00:00 [facility] Influenza Virus 2016-05-16 Completed Universit y of Vaccine Quad IM 3+ 00:00:00 [facility] Influenza Virus 2016-05-16 Completed Universit y of Vaccine Quad IM 3+ 00:00:00 [facility] Influenza Virus 2016-05-16 Completed Universit y of Vaccine Quad IM 3+ 00:00:00 [facility] Influenza Virus 2016-05-16 Completed Universit y of Vaccine Quad IM 3+ 00:00:00 [facility] Influenza Virus 2016-05-16 Completed Universit y of Vaccine Quad IM 3+ 00:00:00 [facility] Influenza Virus 2016-05-16 Completed Universit y of Vaccine Quad IM 3+ 00:00:00 [facility] Influenza Virus 2016-05-16 Completed Universit y of Vaccine Quad IM 3+ 00:00:00 [facility] Influenza Virus 2016-05-16 Completed Universit y of Vaccine Quad IM 3+ 00:00:00 [facility] Influenza Virus 2016-05-16 Completed Universit y of Vaccine Quad IM 3+ 00:00:00 [facility] Influenza Virus 2016-05-16 Completed Universit y of Vaccine Quad IM 3+ 00:00:00 [facility] Influenza Virus 2016-05-16 Completed Universit y of Vaccine Quad IM 3+ 00:00:00 [facility] Influenza Virus 2016-05-16 Completed Universit y of Vaccine Quad IM 3+ 00:00:00 [facility] Influenza Virus 2016-05-16 Completed Universit y of Vaccine Quad IM 3+ 00:00:00 [facility] Influenza Virus 2016-05-16 Completed Universit y of Vaccine Quad IM 3+ 00:00:00 [facility] Influenza Virus 2016-05-16 Completed Universit y of Vaccine Quad IM 3+ 00:00:00 [facility] Influenza Virus 2016-05-16 Completed Universit y of Vaccine Quad IM 3+ 00:00:00 [facility] Influenza Virus 2016-05-16 Completed Universit y of Vaccine Quad IM 3+ 00:00:00 [facility] Influenza Virus 2016-05-16 Completed Universit y of Vaccine Quad IM 3+ 00:00:00 [facility] Influenza Virus 2016-05-16 Completed Universit y of Vaccine Quad IM 3+ 00:00:00 [facility] Influenza Virus 2016-05-16 Completed Universit y of Vaccine Quad IM 3+ 00:00:00 [facility] Influenza Virus 2016-05-16 Completed Universit y of Vaccine Quad IM 3+ 00:00:00 [facility] Influenza Virus 2016-05-16 Completed Universit y of Vaccine Quad IM 3+ 00:00:00 [facility] Influenza Virus 2016-05-16 Completed Universit y of Vaccine Quad IM 3+ 00:00:00 [facility] Influenza Virus 2016-05-16 Completed Universit y of Vaccine Quad IM 3+ 00:00:00 [facility] Influenza Virus 2016-05-16 Completed Universit y of Vaccine Quad IM 3+ 00:00:00 [facility] Influenza Virus 2016-05-16 Completed Universit y of Vaccine Quad IM 3+ 00:00:00 [facility] Influenza Virus 2016-05-16 Completed Universit y of Vaccine Quad IM 3+ 00:00:00 [facility] Influenza Virus 2016-05-16 Completed Universit y of Vaccine Quad IM 3+ 00:00:00 [facility] Influenza Virus 2016-05-16 Completed Universit y of Vaccine Quad IM 3+ 00:00:00 [facility] Influenza Virus 2016-05-16 Completed Universit y of Vaccine Quad IM 3+ 00:00:00 [facility] Influenza Virus 2016-05-16 Completed Universit y of Vaccine Quad IM 3+ 00:00:00 [facility] Influenza Virus 2016-05-16 Completed Universit y of Vaccine Quad IM 3+ 00:00:00 [facility] Influenza Virus 2016-05-16 Completed Universit y of Vaccine Quad IM 3+ 00:00:00 [facility] Influenza Virus 2016-05-16 Completed Universit y of Vaccine Quad IM 3+ 00:00:00 [facility] Influenza Virus 2016-05-16 Completed Universit y of Vaccine Quad IM 3+ 00:00:00 [facility] Influenza Virus 2016-05-16 Completed Universit y of Vaccine Quad IM 3+ 00:00:00 [facility] Influenza Virus 2016-05-16 Completed Universit y of Vaccine Quad IM 3+ 00:00:00 [facility] Influenza Virus 2016-05-16 Completed Universit y of Vaccine Quad IM 3+ 00:00:00 [facility] Influenza Virus 2016-05-16 Completed Universit y of Vaccine Quad IM 3+ 00:00:00 [facility] Influenza Virus 2016-05-16 Completed Universit y of Vaccine Quad IM 3+ 00:00:00 [facility] Influenza Virus 2016-05-16 Completed Universit y of Vaccine Quad IM 3+ 00:00:00 [facility] Influenza Virus 2016-05-16 Completed Universit y of Vaccine Quad IM 3+ 00:00:00 [facility] Influenza Virus 2016-05-16 Completed Universit y of Vaccine Quad IM 3+ 00:00:00 [facility] Influenza Virus 2016-05-16 Completed Universit y of Vaccine Quad IM 3+ 00:00:00 [facility] Influenza Virus 2016-05-16 Completed Universit y of Vaccine Quad IM 3+ 00:00:00 [facility] Influenza Virus 2016-05-16 Completed Universit y of Vaccine Quad IM 3+ 00:00:00 [facility] Influenza Virus 2016-05-16 Completed Universit y of Vaccine Quad IM 3+ 00:00:00 [facility] Influenza Virus 2016-05-16 Completed Universit y of Vaccine Quad IM 3+ 00:00:00 [facility] Influenza Virus 2016-05-16 Completed Universit y of Vaccine Quad IM 3+ 00:00:00 [facility] Influenza Virus 2016-05-16 Completed Universit y of Vaccine Quad IM 3+ 00:00:00 [facility] Influenza Virus 2016-05-16 Completed Universit y of Vaccine Quad IM 3+ 00:00:00 [facility] Influenza Virus 2016-05-16 Completed Universit y of Vaccine Quad IM 3+ 00:00:00 [facility] Influenza Virus 2016-05-16 Completed Universit y of Vaccine Quad IM 3+ 00:00:00 [facility] Influenza Virus 2016-05-16 Completed Universit y of Vaccine Quad IM 3+ 00:00:00 [facility] Influenza Virus 2016-05-16 Completed Universit y of Vaccine Quad IM 3+ 00:00:00 [facility] Influenza Virus 2016-05-16 Completed Universit y of Vaccine Quad IM 3+ 00:00:00 [facility] Influenza Virus 2016-05-16 Completed Universit y of Vaccine Quad IM 3+ 00:00:00 [facility] Influenza Virus 2016-05-16 Completed Universit y of Vaccine Quad IM 3+ 00:00:00 [facility] Influenza Virus 2016-05-16 Completed Universit y of Vaccine Quad IM 3+ 00:00:00 [facility] Influenza Virus 2016-05-16 Completed Universit y of Vaccine Quad IM 3+ 00:00:00 [facility] Influenza Virus 2016-05-16 Completed Universit y of Vaccine Quad IM 3+ 00:00:00 [facility] Vital Signs Vital Name Observation Time Observation Value Comments Source Systolic blood 2022-04-10 115 mm[Hg] [place] of pressure 05:05:[address] [facility] Diastolic blood 2022-04-10 93 mm[Hg] [place] o f pressure 05:05:[address] [facility] Heart rate 2022-04-10 87 /min [facility] 05:05:[address] [facility] Respiratory rate 2022-04-10 15 /min [facility] 05:05:[address] [facility] Oxygen saturation 2022-04-10 100 /min [facility] Arterial blood 05:05:13 [facility] by Pulse oximetry [place] Body temperature 2022-04-10 36.61 Tasia [facility] 01:35:[address] [facility] Body height 2022-04-10 185.4 cm [facility] 01:35:[address] [facility] Body weight 2022-04-10 68.04 kg University of 01:35:[address] [facility] BMI 2022-04-10 19.79 kg/m2 University of 01:35:[address] [facility] Systolic blood 2022-04-08 86 mm[Hg] University of pressure 13:00:[address] [facility] Diastolic blood 2022-04-08 75 mm[Hg] University o f pressure 13:00:[address] [facility] Heart rate 2022-04-08 61 /min University of 13:00:[address] [facility] Body temperature 2022-04-08 35.67 Tasia University of 13:00:[address] [facility] Respiratory rate 2022-04-08 17 /min University of 13:00:[address] [facility] Oxygen saturation 2022-04-08 95 /min University of in Arterial blood 13:00:00 [facility] mariusz by Pulse oximetry Branch Body weight 2022-04-06 72.984 kg University 08:20:[address] [facility] BMI 2022-04-06 21.23 kg/m2 University 08:20:[address] [facility] Body height 2022-04-02 185.4 cm University 16:37:[address] [facility] HEIGHT 2022-03-06 185.4 cm 12:05:00 WEIGHT 2022-03-06 65.772 kg 12:05:00 HEIGHT 2022-03-06 185.4 cm 12:05:00 WEIGHT 2022-03-06 65.772 kg 12:05:00 HEIGHT 2022-03-06 185.4 cm 12:05:00 WEIGHT 2022-03-06 65.772 kg 12:05:00 Systolic blood 2021-09-14 106 mm[Hg] University of pressure 03:17:[address] [facility] Diastolic blood 2021-09-14 55 mm[Hg] University o f pressure 03:17:[address] [facility] Heart rate 2021-09-14 86 /min University of 03:17:[address] [facility] Body temperature 2021-09-14 36.89 Tasia [place] of 03:17:[address] [facility] Respiratory rate 2021-09-14 18 /min University of 03:17:[address] [facility] Oxygen saturation 2021-09-14 98 /min University of in Arterial blood 03:17:00 [place] Medi mariusz by Pulse oximetry Branch Systolic blood 2021-09-12 90 mm[Hg] University of pressure 22:20:[address] [facility] Diastolic blood 2021-09-12 66 mm[Hg] University o f pressure 22:20:[address] [facility] Heart rate 2021-09-12 97 /min University of 22:20:[address] [facility] Body temperature 2021-09-12 36.61 Tasia University of 22:20:[address] [facility] Respiratory rate 2021-09-12 16 /min University of 22:20:[address] [facility] Oxygen saturation 2021-09-12 98 /min University of in Arterial blood 22:20:00 [facility] by Pulse oximetry Branch Body weight 2021-09-12 68.04 kg University of 20:25:[address] [facility] BMI 2021-09-12 19.79 kg/m2 University of 20:25:[address] [facility] Systolic blood 2021-09-12 103 mm[Hg] University of pressure 13:29:[address] [facility] Diastolic blood 2021-09-12 67 mm[Hg] University o f pressure 13:29:[address] [facility] Heart rate 2021-09-12 91 /min University of 13:29:[address] [facility] Body temperature 2021-09-12 36.72 Tasia University of 13:29:[address] [facility] Respiratory rate 2021-09-12 33 /min University of 13:29:[address] [facility] Oxygen saturation 2021-09-12 98 /min University of in Arterial blood 13:29:00 [facility] by Pulse oximetry Branch Body weight 2021-09-12 68.04 kg University of 12:17:[address] [facility] BMI 2021-09-12 19.79 kg/m2 University of 12:17:[address] [facility] Systolic blood 2021-09-09 100 mm[Hg] University of pressure 04:59:[address] [facility] Diastolic blood 2021-09-09 60 mm[Hg] University o f pressure 04:59:[address] [facility] Heart rate 2021-09-09 85 /min University of 04:59:[address] [facility] Body temperature 2021-09-09 36.5 Tasia University of 04:59:[address] [facility] Respiratory rate 2021-09-09 16 /min University of 04:59:[address] [facility] Body height 2021-09-09 185.4 cm University of 04:59:[address] [facility] Body weight 2021-09-09 68.04 kg University of 04:59:00 [facility] Branch BMI 2021-09-09 19.79 kg/m2 University of 04:59:[address] [facility] Oxygen saturation 2021-09-09 98 /min University of in Arterial blood 04:59:00 [facility] mariusz by Pulse oximetry Branch Systolic blood 2021-09-08 129 mm[Hg] [facility] pressure 05:42:[address] [facility] Diastolic blood 2021-09-08 69 mm[Hg] [facility] pressure 05:42:00 [facility] Heart rate 2021-09-08 85 /min [facility] of 05:42:00 [facility] Respiratory rate 2021-09-08 17 /min University of 05:42:[address] [facility] Oxygen saturation 2021-09-08 98 /min [facility] of in Arterial blood 05:42:00 [facility] mariusz by Pulse oximetry [facility] Body temperature 2021-09-08 37.44 Tasia [place] of 01:22:[address] [facility] Body weight 2021-09-08 68 kg University of 01:22:[address] [facility] BMI 2021-09-08 19.78 kg/m2 University of 01:22:[address] [facility] Systolic blood 2021-09-06 123 mm[Hg] [facility] pressure 21:33:00 [facility] Diastolic blood 2021-09-06 65 mm[Hg] [facility] pressure 21:33:[address] [facility] Heart rate 2021-09-06 91 /min University of 21:33:[address] [facility] Body temperature 2021-09-06 36.39 Tasia University of 21:33:[address] [facility] Respiratory rate 2021-09-06 18 /min University of 21:33:[address] [facility] Body weight 2021-09-06 68.04 kg University of 21:33:[address] [facility] BMI 2021-09-06 19.79 kg/m2 University of 21:33:[address] [facility] Oxygen saturation 2021-09-06 100 /min [facility] of in Arterial blood 21:33:00 [facility] mariusz by Pulse oximetry [facility] Systolic blood 2021-09-05 99 mm[Hg] [facility] pressure 17:16:00 [facility] Diastolic blood 2021-09-05 62 mm[Hg] [facility] pressure 17:16:00 [facility] Heart rate 2021-09-05 78 /min University of 17:16:[address] [facility] Body temperature 2021-09-05 36.39 Tasia University of 17:16:[address] [facility] Respiratory rate 2021-09-05 17 /min University of 17:16:[address] [facility] Oxygen saturation 2021-09-05 95 /min [facility] of in Arterial blood 17:16:00 [facility] by Pulse oxim[facility] Body height 2021-08-31 185.4 cm University of 07:29:[address] [facility] Body weight 2021-08-31 68.04 kg University of 07:29:[address] [facility] BMI 2021-08-31 19.79 kg/m2 University of 07:29:[address] [facility] Systolic blood 2021-09-03 111 mm[Hg] [facility] pressure 15:59:[address] [facility] Diastolic blood 2021-09-03 65 mm[Hg] [facility] pressure 15:59:[address] [facility] Heart rate 2021-09-03 75 /min University of 15:59:[address] [facility] Body temperature 2021-09-03 35.72 Tasia University of 15:59:[address] [facility] Respiratory rate 2021-09-03 18 /min University of 15:59:[address] [facility] Oxygen saturation 2021-09-03 100 /min [facility] of in Arterial blood 15:59:00 [facility] by Pulse o[facility] Body height 2021-08-31 185.4 cm University of 07:29:[address] [facility] Body weight 2021-08-31 68.04 kg University of 07:29:[address] [facility] BMI 2021-08-31 19.79 kg/m2 University of 07:29:[address] [facility] Systolic blood 2021-08-29 111 mm[Hg] [facility] pressure 23:12:[address] [facility] Diastolic blood 2021-08-29 73 mm[Hg] [facility] pressure 23:12:[address] [facility] Heart rate 2021-08-29 95 /min University of 23:12:[address] [facility] Body temperature 2021-08-29 37 Tasia University of 23:12:[address] [facility] Respiratory rate 2021-08-29 18 /min University of 23:12:[address] [facility] Body weight 2021-08-29 68.04 kg University of 23:12:[address] [facility] BMI 2021-08-29 19.79 kg/m2 University of 23:12:[address] [facility] Oxygen saturation 2021-08-29 99 /min [facility] in Arterial blood 23:12:00 [facility] Systolic blood 2021-08-05 92 mm[Hg] [facility] pressure 10:56:00 [facility] Diastolic blood 2021-08-05 75 mm[Hg] [facility] pressure 10:56:00 [facility] Heart rate 2021-08-05 67 /min University of 10:56:[address] [facility] Body temperature 2021-08-05 36.22 Tasia University of 10:56:[address] [facility] Oxygen saturation 2021-08-05 93 /min [facility] of in Arterial blood 10:56:00 [facility] mariusz by Pulse oximetry [facility] Respiratory rate 2021-08-05 16 /min University of 06:24:[address] [facility] Body height 2021-07-30 185.4 cm University of 09:49:[address] [facility] Body weight 2021-07-30 65.772 kg University of 09:49:[address] [facility] BMI 2021-07-30 19.13 kg/m2 University of 09:49:[address] [facility] Systolic blood 2021-07-26 107 mm[Hg] [facility] pressure 17:32:[address] [facility] Diastolic blood 2021-07-26 69 mm[Hg] [facility] pressure 17:32:[address] [facility] Heart rate 2021-07-26 70 /min University of 17:32:[address] [facility] Body temperature 2021-07-26 36.39 Tasia University of 17:32:[address] [facility] Respiratory rate 2021-07-26 16 /min University of 17:32:[address] [facility] Oxygen saturation 2021-07-26 96 /min [facility] in Arterial blood 17:32:00 [facility] Body height 2021-07-23 185.4 cm University of 08:40:[address] [facility] Body weight 2021-07-23 84.5 kg University of 08:40:[address] [facility] BMI 2021-07-23 24.58 kg/m2 University of 08:40:[address] [facility] Systolic blood 2021-06-04 95 mm[Hg] [facility] pressure 16:20:00 [facility] Diastolic blood 2021-06-04 60 mm[Hg] [facility] pressure 16:20:[address] [facility] Heart rate 2021-06-04 61 /min University of 16:20:[address] [facility] Body temperature 2021-06-04 36.17 Tasia University of 16:20:[address] [facility] Respiratory rate 2021-06-04 18 /min University of 16:20:[address] [facility] Oxygen saturation 2021-06-04 100 /min [facility] of in Arterial blood 16:20:00 [facility] by P[facility] o[facility] Body weight 2021-06-01 65.772 kg University of 19:00:[address] [facility] BMI 2021-06-01 19.13 kg/m2 University of 19:00:[address] [facility] Body height 2021-05-31 185.4 cm University of 22:12:[address] [facility] Systolic blood 2021-05-21 101 mm[Hg] [facility] pressure 20:21:[address] [facility] Diastolic blood 2021-05-21 68 mm[Hg] [facility] pressure 20:21:[address] [facility] Heart rate 2021-05-21 74 /min University of 20:21:[address] [facility] Body temperature 2021-05-21 36.56 Tasia University of 20:21:[address] [facility] Respiratory rate 2021-05-21 18 /min University of 20:21:[address] [facility] Oxygen saturation 2021-05-21 99 /min [facility] of in Arterial blood 20:21:00 [facility] by P[facility] o[facility] Body height 2021-05-21 185.4 cm University of 00:15:[address] [facility] Body weight 2021-05-21 65.772 kg University of 00:15:[address] [facility] BMI 2021-05-21 19.13 kg/m2 University of 00:15:[address] [facility] Systolic blood 2021-05-09 101 mm[Hg] [facility] pressure 16:32:[address] [facility] Diastolic blood 2021-05-09 70 mm[Hg] [facility] pressure 16:32:[address] [facility] Heart rate 2021-05-09 69 /min University of 16:32:[address] [facility] Body temperature 2021-05-09 36.72 Tasia University of 16:32:[address] [facility] Respiratory rate 2021-05-09 16 /min University of 16:32:[address] [facility] Oxygen saturation 2021-05-09 99 /min [facility] of in Arterial blood 16:32:00 [facility] mariusz by Pulse oximetry [facility] Body height 2021-05-08 185.4 cm University of 05:48:[address] [facility] Body weight 2021-05-08 80.196 kg University of 05:48:[address] [facility] BMI 2021-05-08 23.33 kg/m2 University of 05:48:[address] [facility] Heart rate 2020-09-27 89 /min University of 04:25:[address] [facility] Respiratory rate 2020-09-27 20 /min University of 04:25:[address] [facility] Oxygen saturation 2020-09-27 99 /min [facility] of in Arterial blood 04:25:00 [facility] by P[facility] o[facility] Systolic blood 2020-09-27 103 mm[Hg] [facility] pressure 04:02:[address] [facility] Diastolic blood 2020-09-27 78 mm[Hg] [facility] pressure 04:02:[address] [facility] Body temperature 2020-09-27 36.72 Tasia University of 04:00:[address] [facility] Body weight 2020-09-26 79.379 kg University of 22:35:[address] [facility] BMI 2020-09-26 23.09 kg/m2 University of 22:35:[address] [facility] Systolic blood 2020-08-24 105 mm[Hg] [facility] pressure 17:24:[address] [facility] Diastolic blood 2020-08-24 64 mm[Hg] [facility] pressure 17:24:[address] [facility] Heart rate 2020-08-24 83 /min University of 17:24:[address] [facility] Body temperature 2020-08-24 36.56 Tasia University of 17:24:[address] [facility] Respiratory rate 2020-08-24 16 /min University of 17:24:[address] [facility] Oxygen saturation 2020-08-24 98 /min [facility] of in Arterial blood 17:24:00 [facility] o[facility] Body height 2020-08-23 185.4 cm University of 03:19:[address] [facility] Body weight 2020-08-23 79.379 kg University of 03:19:[address] [facility] BMI 2020-08-23 23.09 kg/m2 University of 03:19:[address] [facility] Systolic blood 2020-07-10 126 mm[Hg] [facility] pressure 01:32:[address] [facility] Diastolic blood 2020-07-10 67 mm[Hg] [facility] pressure 01:32:[address] [facility] Heart rate 2020-07-10 92 /min University of 01:32:[address] [facility] Body temperature 2020-07-10 37.17 Tasia University of :32:[address] [facility] Respiratory rate 2020-07-10 16 /min University of :32:[address] [facility] Oxygen saturation 2020-07-10 100 /min [facility] of in Arterial blood :32:00 [facility] by Pulse oxim[facility] Body height 2020-07-09 154.9 cm University of 22:23:[address] [facility] Body weight 2020-07-09 68.04 kg University of ::[address] [facility] BMI 2020-07-09 28.34 kg/m2 University of 22:23:[address] [facility] Systolic blood 2020-06-05 106 mm[Hg] [facility] pressure 15:00:[address] [facility] Diastolic blood 2020-06-05 72 mm[Hg] [facility] pressure 15:00:[address] [facility] Heart rate 2020-06-05 84 /min University of 15:00:[address] [facility] Respiratory rate 2020-06-05 18 /min University of 15:00:[address] [facility] Oxygen saturation 2020-06-05 100 /min [facility] of in Arterial blood 15:00:00 [facility] by P[facility] o[facility] Body temperature 2020-06-05 36.61 Tasia University of 14:54:[address] [facility] Body weight 2020-06-05 65.772 kg University of 11:48:[address] [facility] BMI 2020-06-05 19.13 kg/m2 University of 11:48:[address] [facility] Systolic blood 2020-06-04 130 mm[Hg] [facility] pressure 18:30:[address] [facility] Diastolic blood 2020-06-04 84 mm[Hg] [facility] pressure 18:30:[address] [facility] Heart rate 2020-06-04 72 /min University of 18:30:[address] [facility] Body temperature 2020-06-04 36.72 Tasia University of 18:30:[address] [facility] Respiratory rate 2020-06-04 16 /min University of 18:30:[address] [facility] Oxygen saturation 2020-06-04 98 /min [facility] of in Arterial blood 18:30:00 [facility] by [facility] Systolic blood 2020-05-31 90 mm[Hg] [facility] pressure 19:59:[address] [facility] Diastolic blood 2020-05-31 59 mm[Hg] [facility] pressure 19:59:[address] [facility] Heart rate 2020-05-31 88 /min University of 19:59:[address] [facility] Body temperature 2020-05-31 36.78 Tasia University of 19:59:[address] [facility] Respiratory rate 2020-05-31 16 /min University of 19:59:[address] [facility] Oxygen saturation 2020-05-31 98 /min [facility] of in Arterial blood 19:59:00 [facility] by [facility] Body height 2020-05-30 185.4 cm University of 18:29:[address] [facility] Body weight 2020-05-30 69.5 kg weighed in bed University of 18:29:[address] [facility] BMI 2020-05-30 20.21 kg/m2 University of 18:29:[address] [facility] Systolic blood 2020-05-22 100 mm[Hg] [facility] pressure 04:38:[address] [facility] Diastolic blood 2020-05-22 71 mm[Hg] [facility] pressure 04:38:[address] [facility] Heart rate 2020-05-22 90 /min University of 04:38:[address] [facility] Respiratory rate 2020-05-22 18 /min University of 04:38:[address] [facility] Oxygen saturation 2020-05-22 97 /min [place] of in Arterial blood 04:38:00 [facility] by P[facility] o[facility] Body temperature 2020-05-22 36.83 Tasia University of 02:02:[address] [facility] Body height 2020-05-22 185.4 cm University of 01:59:[address] [facility] Body weight 2020-05-22 65.772 kg University of 01:59:[address] [facility] BMI 2020-05-22 19.13 kg/m2 University of 01:59:[address] [facility] Systolic blood 2020-05-20 95 mm[Hg] [facility] pressure 18:33:[address] [facility] Diastolic blood 2020-05-20 62 mm[Hg] [facility] pressure 18:33:[address] [facility] Heart rate 2020-05-20 86 /min University of 18:33:[address] [facility] Respiratory rate 2020-05-20 20 /min University of 18:33:[address] [facility] Oxygen saturation 2020-05-20 98 /min [facility] of in Arterial blood 18:33:34 [facility] mariusz by Pulse oxim[facility] Body temperature 2020-05-20 37 Tasia University of 12:02:00 [facility] Body weight 2020-05-20 65.8 kg University of 12:02:00 [facility] BMI 2020-05-20 19.14 kg/m2 University of 12:02:[address] [facility] Systolic blood 2020-05-20 101 mm[Hg] [facility] pressure 10:58:00 [facility] Diastolic blood 2020-05-20 56 mm[Hg] [facility] pressure 10:58:00 [facility] Heart rate 2020-05-20 79 /min University of 10:58:00 [facility] Body temperature 2020-05-20 37 Tasia University of 10:58:00 [facility] Respiratory rate 2020-05-20 16 /min University of 10:58:[address] [facility] Oxygen saturation 2020-05-20 99 /min [facility] of in Arterial blood 10:58:00 [facility] m[facility]z by P[facility] oxim[facility] Body height 2020-05-20 185.4 cm University of 02:36:[address] [facility] Body weight 2020-05-20 65.772 kg University of 02:36:[address] [facility] BMI 2020-05-20 19.13 kg/m2 University of 02:36:[address] [facility] Systolic blood 2020-05-12 93 mm[Hg] [facility] pressure 17:02:00 [facility] Diastolic blood 2020-05-12 61 mm[Hg] [facility] pressure 17:02:[address] [facility] Body temperature 2020-05-12 37.06 Tasia University of 17:02:[address] [facility] Heart rate 2020-05-12 74 /min University of 09:00:00 [facility] Respiratory rate 2020-05-12 18 /min University of 09:00:00 [facility] Oxygen saturation 2020-05-12 95 /min [facility] of in Arterial blood 09:00:00 [facility] m[facility]z by [facility] o[facility] Body height 2020-05-05 185.4 cm University of 09:05:[address] [facility] Body weight 2020-05-05 65.772 kg University of 09:05:[address] [facility] BMI 2020-05-05 19.13 kg/m2 University of 09:05:[address] [facility] Systolic blood 2020-05-03 107 mm[Hg] [facility] pressure 04:30:00 [facility] Diastolic blood 2020-05-03 62 mm[Hg] [facility] pressure 04:30:[address] [facility] Heart rate 2020-05-03 105 /min University of 04:30:[address] [facility] Body temperature 2020-05-03 37.22 Tasia University of 04:30:[address] [facility] Respiratory rate 2020-05-03 14 /min University of 04:30:[address] [facility] Body height 2020-05-03 185.4 cm University of 04:30:[address] [facility] Body weight 2020-05-03 65.772 kg University of 04:30:[address] [facility] BMI 2020-05-03 19.13 kg/m2 University of 04:30:[address] [facility] Systolic blood 2020-05-02 105 mm[Hg] [facility] pressure 12:46:[address] [facility] Diastolic blood 2020-05-02 57 mm[Hg] [facility] pressure 12:46:[address] [facility] Heart rate 2020-05-02 79 /min University of 12:46:[address] [facility] Body temperature 2020-05-02 36.28 Tasia University of 12:46:[address] [facility] Respiratory rate 2020-05-02 16 /min University of 12:46:[address] [facility] Oxygen saturation 2020-05-02 98 /min [facility] of in Arterial blood 12:46:00 [facility] m[facility]z by Pulse oximetry [place] Body height 2020-04-16 185.4 cm University of 20:11:[address] [facility] Body weight 2020-04-16 79.379 kg University of 20:11:[address] [facility] BMI 2020-04-16 23.09 kg/m2 University of 20:11:[address] [facility] Respiratory rate 2020-04-06 12 /min University of 16:20:[address] [facility] Systolic blood 2020-03-28 125 mm[Hg] [facility] pressure 16:00:[address] [facility] Diastolic blood 2020-03-28 87 mm[Hg] [facility] f pressure 16:00:[address] [facility] Heart rate 2020-03-28 74 /min University of 16:00:[address] [facility] Body temperature 2020-03-28 36.44 Tasia University of 16:00:[address] [facility] Respiratory rate 2020-03-28 18 /min University of 16:00:[address] [facility] Oxygen saturation 2020-03-28 100 /min [facility] in Arterial blood 16:00:00 [facility] Body height 2020-03-26 185.4 cm University of 03:49:[address] [facility] Body weight 2020-03-26 74.844 kg University of 03:49:[address] [facility] BMI 2020-03-26 21.77 kg/m2 University of 03:49:[address] [facility] Systolic blood 2020-03-05 107 mm[Hg] [facility] pressure 16:00:[address] [facility] Diastolic blood 2020-03-05 67 mm[Hg] [facility] f pressure 16:00:[address] [facility] Heart rate 2020-03-05 56 /min University of 16:00:[address] [facility] Body temperature 2020-03-05 36.5 Tasia University of 16:00:[address] [facility] Respiratory rate 2020-03-05 18 /min University of 16:00:[address] [facility] Oxygen saturation 2020-03-05 100 /min [facility] of in Arterial blood 16:00:00 [facility] Body height 2020-03-03 185.4 cm University of 05:49:[address] [facility] Body weight 2020-03-03 71.668 kg University of 05:49:[address] [facility] BMI 2020-03-03 20.85 kg/m2 University of 05:49:[address] [facility] Systolic blood 2020-02-27 100 mm[Hg] [facility] pressure 21:12:[address] [facility] Diastolic blood 2020-02-27 74 mm[Hg] [facility] f pressure 21:12:[address] [facility] Heart rate 2020-02-27 90 /min University of 21:12:[address] [facility] Body temperature 2020-02-27 35.78 Tasia University of 21:12:[address] [facility] Respiratory rate 2020-02-27 19 /min University of 21:12:[address] [facility] Oxygen saturation 2020-02-27 99 /min [facility] of in Arterial blood 21:12:00 [facility] Body weight 2020-02-26 71.215 kg University of 23:05:[address] [facility] BMI 2020-02-26 20.71 kg/m2 University of 23:05:[address] [facility] Systolic blood 2020-02-26 132 mm[Hg] [facility] pressure 07:43:[address] [facility] Diastolic blood 2020-02-26 71 mm[Hg] [facility] pressure 07:43:00 [facility] Heart rate 2020-02-26 82 /min University of 07:43:00 [facility] Respiratory rate 2020-02-26 18 /min University of 07:43:00 [facility] Oxygen saturation 2020-02-26 100 /min [facility] of in Arterial blood 07:43:00 [facility] Body temperature 2020-02-26 36.94 Tasia University of 04:57:00 [facility] Body height 2020-02-26 185.4 cm University of 02:30:[address] [facility] Body weight 2020-02-26 68.04 kg University of 02:30:[address] [facility] BMI 2020-02-26 19.79 kg/m2 University of 02:30:00 [facility] Systolic blood 2020-02-05 100 mm[Hg] [facility] pressure 16:00:00 [facility] Diastolic blood 2020-02-05 61 mm[Hg] [facility] f pressure 16:00:[address] [facility] Heart rate 2020-02-05 60 /min University of 16:00:[address] [facility] Body temperature 2020-02-05 36.67 Tasia University of 16:00:00 [facility] Respiratory rate 2020-02-05 17 /min University of 16:00:[address] [facility] Oxygen saturation 2020-02-05 98 /min [facility] of in Arterial blood 16:00:00 [facility] Body height 2020-01-28 185.4 cm University of 23:13:[address] [facility] Body weight 2020-01-28 68.04 kg University of 23:13:[address] [facility] BMI 2020-01-28 19.79 kg/m2 University of 23:13:00 [facility] Systolic blood 2020-02-05 100 mm[Hg] [facility] pressure 16:00:00 [facility] Diastolic blood 2020-02-05 61 mm[Hg] [facility] o f pressure 16:00:00 [facility] Heart rate 2020-02-05 60 /min University of 16:00:[address] [facility] Body temperature 2020-02-05 36.67 Tasia University of 16:00:00 [facility] Respiratory rate 2020-02-05 17 /min University of 16:00:00 [facility] Oxygen saturation 2020-02-05 98 /min [facility] of in Arterial blood 16:00:00 [facility] Body height 2020-01-28 185.4 cm University of 23:13:[address] [facility] Body weight 2020-01-28 68.04 kg University of 23:13:[address] [facility] BMI 2020-01-28 19.79 kg/m2 University of 23:13:[address] [facility] Systolic blood 2020-01-27 114 mm[Hg] [facility] pressure 00:32:[address] [facility] Diastolic blood 2020-01-27 66 mm[Hg] [facility] o f pressure 00:32:[address] [facility] Heart rate 2020-01-27 73 /min University of 00:32:[address] [facility] Body temperature 2020-01-27 36.67 Tasia University of 00:32:[address] [facility] Respiratory rate 2020-01-27 18 /min University of 00:32:[address] [facility] Oxygen saturation 2020-01-27 97 /min [facility] of in Arterial blood 00:32:00 [facility] m[facility]z by P[facility] o[facility] Body height 2020-01-24 185.4 cm University of :55:[address] [facility] Body weight 2020-01-24 68.04 kg University of :55:[address] [facility] BMI 2020-01-24 19.79 kg/m2 University of :55:[address] [facility] Systolic blood 2020-01-27 114 mm[Hg] University of pressure 00:32:[address] [facility] Diastolic blood 2020-01-27 66 mm[Hg] University o f pressure 00:32:[address] [facility] Heart rate 2020-01-27 73 /min University of 00:32:[address] [facility] Body temperature 2020-01-27 36.67 Tasia University of 00:32:[address] [facility] Respiratory rate 2020-01-27 18 /min University of :32:[address] [facility] Oxygen saturation 2020-01-27 97 /min University of in Arterial blood 00:32:00 [facility] mariusz by Pulse oximetry Branch Body height 2020-01-24 185.4 cm University of 23::[address] [facility] Body weight 2020-01-24 68.04 kg University of 23::[address] [facility] BMI 2020-01-24 19.79 kg/m2 University of 23:55:[address] [facility] Body temperature 2019-12-13 36.72 Tasia University of 02:56:[address] [facility] Systolic blood 2019-12-13 114 mm[Hg] [facility] of pressure 01:57:[address] [facility] Diastolic blood 2019-12-13 77 mm[Hg] University o f pressure 01:57:[address] [facility] Heart rate 2019-12-13 75 /min [facility] :57:[address] [facility] Respiratory rate 2019-12-13 20 /min [facility] :57:[address] [facility] Body height 2019-12-13 185.4 cm [facility] :57:[address] [facility] Body weight 2019-12-13 68.04 kg [facility] :57:[address] [facility] BMI 2019-12-13 19.79 kg/m2 [facility] :57:[address] [facility] Oxygen saturation 2019-12-13 97 /min [facility] in Arterial blood 01:57:00 [place] [facility] by Pulse oximetry Branch Body temperature 2019-12-13 36.72 Tasia [facility] 02:56:[address] [facility] Systolic blood 2019-12-13 114 mm[Hg] [facility] pressure 01:57:[address] [facility] Diastolic blood 2019-12-13 77 mm[Hg] University o f pressure 01:57:[address] [facility] Heart rate 2019-12-13 75 /min [facility] :57:[address] [facility] Respiratory rate 2019-12-13 20 /min [facility] :57:[address] [facility] Body height 2019-12-13 185.4 cm [facility] :57:[address] [facility] Body weight 2019-12-13 68.04 kg [facility] :57:[address] [facility] BMI 2019-12-13 19.79 kg/m2 [facility] :57:[address] [facility] Oxygen saturation 2019-12-13 97 /min [facility] in Arterial blood 01:57:00 [place] [facility] by Pulse oximetry Branch Systolic blood 2022-03-13 94 mm[Hg] [facility] pressure 15:33:00 Diastolic blood 2022-03-13 62 mm[Hg] [facility] pressure 15:33:00 Heart rate 2022-03-13 109 /min [facility] 15:33:00 Body temperature 2022-03-13 36.67 Tasia [facility] 15:33:00 Respiratory rate 2022-03-13 20 /min [facility] 15:33:00 Body height 2022-03-13 185.4 cm [facility] 15:33:00 Body weight 2022-03-13 66.679 kg [facility] 15:33:00 BMI 2022-03-13 19.39 kg/m2 [facility] 15:33:00 Oxygen saturation 2022-03-13 100 /min [facility] in Arterial blood 15:33:00 by Pulse oximetry Systolic blood 2022-03-09 107 mm[Hg] [facility] pressure 11:00:00 [facility] Diastolic blood 2022-03-09 66 mm[Hg] [facility] pressure 11:00:00 [facility] Heart rate 2022-03-09 58 /min [facility] 11:00:00 [facility] Body temperature 2022-03-[address] [facility] 11:[facility]:00 [facility] Respiratory rate 2022-03-09 16 /min [facility] 11:00:00 [facility] Oxygen saturation 2022-03-09 100 /min [facility] Jose es in Arterial blood 11:00:00 [facility]ter by Pulse oximetry Body height 2022-03-[address] [facility] 12:05:00 [facility] Body weight 2022-03-06 65.772 kg [facility] 12:05:00 [facility] BMI 2022-03-06 19.13 kg/m2 [facility] 12:05:00 [facility] Procedures Procedure Date / Time Performing Clinician Source Performed COMP. METABOLIC PANEL 2022-04-10 03:54:00 Alvarez Austin [facility] ([id number]) [facility] CBC WITH DIFF 2022-04-10 03:49:00 Alvarez [facility] LIPASE 2022-04-10 03:07:00 Alvarez [facility] XR CHEST 2 VW 2022-04-10 02:59:18 Alvarez [facility] COVID-19 (ID NOW RAPID 2022-04-10 02:43:00 Alvarez Austin [facility] TESTING) [facility] PHOSPHORUS 2022-04-08 10:26:00 [facility] MAGNESIUM 2022-04-08 10:26:00 [facility] BASIC METABOLIC PANEL (NA, 2022-04-08 10:26:00 Shelia Lemus [facility] K, CL, CO2, GLUCOSE, BUN, Medica l Branch CREATININE, CA) CBC WITH DIFF 2022-04-08 10:26:00 Kurt [facility] PHOSPHORUS 2022-04-07 09:45:[address] [facility] MAGNESIUM 2022-04-07 09:45:00 [facility]OL[facility] PAN[facility] (NA, 2022-04-07 09:45:00 [facility] niversity [facility] K, CL, CO2, GLUCOSE, BUN, Medica l Branch CREATININE, CA) LACTIC ACID WHOLE BLOOD 2022-04-06 09:05:[address] [facility] MAGNESIUM 2022-04-06 [facility] (NA, 2022-04-06 09:04:00 [facility] K, CL, CO2, GLUCOSE, BUN, Medica l Branch CREATININE, CA) CBC WITH DIFF 2022-04-06 09:04:00 Kurt [facility] BASIC METABOLIC PANEL (NA, 2022-04-05 08:12:00 Agatha Noonan [facility] [place] K, CL, CO2, GLUCOSE, BUN, Medica l Branch CREATININE, CA) ACUTE CARE VENOUS BLOOD 2022-04-05 08:12:[address] [facility] CBC WITH DIFF 2022-04-05 08:12:00 Agatha Noonan [facility] BASIC METABOLIC PANEL (NA, 2022-04-04 09:03:00 Rolf Lemus niversity [facility] K, CL, CO2, GLUCOSE, BUN, Medica l Branch CREATININE, CA) US RETROPERITONEAL LIMITED 2022-04-03 23:10:49 [facility]avio [facility] ACUTE CARE VENOUS BLOOD 2022-04-03 18:33:[address] [facility] OSMOLALITY URINE 2022-04-03 17:59:00 Amirah [facility] BASIC METABOLIC PANEL (NA, 2022-04-03 17:59:00 Octavio Macario [facility] K, CL, CO2, GLUCOSE, BUN, Medica l Branch CREATININE, CA) CREATININE, URINE RANDOM 2022-04-03 17:59:00 Octavio Macario [facility] POTASSIUM, URINE RANDOM 2022-04-03 17:59:00 Amirah [facility] SODIUM, URINE RANDOM 2022-04-03 17:59:00 Amirah [facility] MAGNESIUM 2022-04-03 09:29:00 Amirah [facility] OSMOLALITY, SERUM OR 2022-04-03 09:29:00 Amirah Octavio [facility] PLASMA [facility] BASIC METABOLIC PANEL (NA, 2022-04-03 09:29:00 Juventino Thomas [facility] K, CL, CO2, GLUCOSE, BUN, Medica l Branch CREATININE, CA) CBC WITH DIFF 2022-04-03 09:29:00 William [facility] CLOSTRIDIUM DIFFICILE 2022-04-03 03:44:00 William Juventino [facility] TOXIN [facility] LACTIC ACID WHOLE BLOOD 2022-04-03 03:38:00 William [facility] LACTIC ACID WHOLE BLOOD 2022-04-03 00:07:00 William [facility] URINE CULTURE 2022-04-02 22:39:00 Rekha Sheehan [facility] CT ABDOMEN PELVIS WO 2022-04-02 21:07:00 Rekha Sheehan [facility] CONTRAST [facility] LIPASE 2022-04-02 20:00:00 Aguila [facility] TROPONIN I 2022-04-02 20:00:00 Aguila [facility] HEPATIC FUNCTION PANEL 2022-04-02 20:00:00 Rekha Sheehan [facility] ([id number]) (ALB,T.PRO,BILI Medical Branch T,BU/BC,ALT,AST,ALK PHOS) BASIC METABOLIC PANEL (NA, 2022-04-02 20:00:00 Rekha Sheehan [facility] K, CL, CO2, GLUCOSE, BUN, Medica l Branch CREATININE, CA) URINALYSIS 2022-04-02 20:00:00 Rekha Sheehan [facility] CBC WITH DIFF 2022-04-02 18:20:00 Aguila [facility] COVID-19 (ID NOW RAPID 2022-04-02 18:20:00 Rekha Sheehan [facility] TESTING) Medical Branch LAB ONLY COVID 2022-04-02 18:20:00 Rekha Sheehan [facility] XR CHEST 2 VW 2022-04-02 17:29:13 Aguila [facility] HB ECG ROUTINE & RHYTHM 2022-04-02 16:32:43 Rekha Sheehan [facility] STRIP [facility] Branch CONSENT/REFUSAL FOR 2022-04-02 16:29:46 Doctor Unassigned, [facility] DIAGNOSIS AND TREATMENT [place] [facility] BASIC METABOLIC PANEL (7) 2022-03-07 05:51:00 Romie Kuo I [facility] HEPATIC FUNCTION PANEL 2022-03-07 05:51:00 ShielaRomie [facility] CBC W/PLT COUNT & AUTO 2022-03-07 05:51:00 Romie Kuo [facility] DIFFERENTIAL [place] CBC W/PLT COUNT & AUTO 2022-03-07 05:51:00 ShielaVidhiAcacia [facility] DIFFERENTIAL [place] US RENAL COMPLETE 2022-03-06 18:23:00 Romie Kuo [facility] SARS-COV2/RT-PCR ([facility] & 2022-03-06 17:36:00 Romie Kuo [facility] REF LABS) Center TSH/FREE T4 IF INDICATED 2022-03-06 14:18:00 Jonna [facility] T4, FREE 2022-03-06 14:18:00 Elisha [facility] ED ECG INTERPRETATION 2022-03-06 13:48:12 [facility] XR CHEST 1 VIEW PORTABLE / 2022-03-06 13:42:00 Aryan Tello [facility] BEDSIDE [facility] B-TYPE NATRIURETIC FACTOR 2022-03-06 13:23:00 Aryan Tello [facility] (BNP) [facility] CBC W/PLT COUNT & AUTO 2022-03-06 13:23:00 Aryan Tello [facility] DIFFERENTIAL [facility] COMPREHENSIVE METABOLIC 2022-03-06 13:23:00 Aryan Tello [facility] PANEL [facility] HIGH SENSITIVITY TROPONIN 2022-03-06 13:23:00 Aryan Tello [facility] MAGNESIUM 2022-03-06 13:23:00 Aryan Tello [facility] PHOSPHORUS 2022-03-06 13:23:00 [facility], VENOUS 2022-03-06 13:23:00 [facility] CREATINE KINASE (CK) 2022-03-06 13:23:00 Aryan Tello [facility] CBC W/PLT COUNT & AUTO 2022-03-06 13:23:00 Aryan Tello [facility] DIFFERENTIAL [facility] ECG 12-LEAD 2022-03-06 12:12:56 Unknown, [facility] ECG 12-LEAD 2022-03-06 12:12:56 Unknown, [facility] ECG 12-LEAD 2022-03-06 12:12:56 Unknown, [facility] EKG-SCANNED 2022-03-06 00:00:00 Provider, [facility] CBC (WITHOUT DIFFERENTIAL) 2022-02-20 05:10:00 Rufino Lazaro [facility] BASIC METABOLIC PANEL 2022-02-20 05:10:00 Rufino Lazaro [facility] MAGNESIUM 2022-02-20 05:10:00 Rufino Lazaro Healt [facility] PHOSPHORUS 2022-02-20 05:10:00 Rufino Lazaro INFUSION PUMP 2022-02-19 19:03:50 Rufino Lazaro h COMPREHENSIVE METABOLIC 2022-02-19 06:35:00 [facility]/DIFF 2022-02-19 06:35:00 Fannie Blake alth PHOSPHORUS 2022-02-19 06:35:00 Fannie Blake alth CBC 2022-02-19 06:35:00 Fannie Blake alth URINALYSIS W/REFLEX TO 2022-02-19 00:34:00 Fannie Blake [facility] URINE CULTURE URINALYSIS 2022-02-19 00:34:00 Chadd Palacios [facility] URINE CULTURE COLLECTION 2022-02-19 00:34:00 [facility] KIT SARS-COV-2, FLU A/B, RSV 2022-02-18 [facility]:00[facility], COVID-19, OLENA 2022-02-18 19:00:00 Chadd Palacios [facility] XRAY CHEST 1 VIEW 2022-02-18 15:23:00 Roz Scales [facility] CONSULT CLINICAL CASE 2022-02-18 14:50:50 Roz Scales [facility] MANAGEMENT (RN/SW) CBC/DIFF 2022-02-18 14:16:00 Susana Cooley [facility] BASIC METABOLIC PANEL 2022-02-18 14:16:00 [facility] MAGNES[facility]UM 2022-02-18 14:16:00 Susana Cooley [facility] PHOSPHORUS 2022-02-18 14:16:00 Albab Susana [facility] CREATINE KINASE (CK) 2022-02-18 14:16:00 [facility] 2022-02-18 14:16:00 AlbSusana almeida [facility] BASIC METABOLIC PANEL 2022-02-11 03:34:00 Daily Islas [facility] MAGNESIUM 2022-02-11 03:34:00 Teresa Alves [facility] PHOSPHORUS 2022-02-11 03:34:00 Teresa Alves [facility] CBC (WITHOUT DIFFERENTIAL) 2022-02-11 03:34:00 Teresa Alves [facility] CBC/DIFF 2022-02-10 03:39:00 Daily [facility]IC METABOLIC PANEL 2022-02-10 03:39:00 [facility] 2022-02-10 03:39:00 [facility] THYROID STIMULATING 2022-02-10 03:39:00 JamilahTeresa de la garza [facility] HORMONE (TSH) FREE T4 2022-02-10 03:39:00 Teresa Alves [facility] CBC/DIFF 2022-02-09 04:38:00 [facility]OLIC PANEL 2022-02-09 04:38:00 [facility] CBC 2022-02-09 04:38:00 Daily Islas [facility] CORTISOL, TOTAL 2022-02-08 11:37:00 [facility] GLUCOSE POC 2022-02-08 08:07:00 Daily Islas [facility] CBC (WITHOUT DIFFERENTIAL) 2022-02-08 04:00:00 Jian Schmitt [facility] COMPREHENSIVE METABOLIC 2022-02-08 04:00:00 Jian Schmitt [facility] PANEL PHOSPHORUS 2022-02-08 04:00:00 Jian Schmitt [facility] MAGNESIUM 2022-02-08 04:00:00 [facility] PT/INR 2022-02-08 04:00:00 Jian Schmitt [facility] URINALYSIS W/REFLEX TO 2022-02-07 18:06:00 Areli Arciniega [facility] URINE CULTURE URINALYSIS 2022-02-07 18:06:00 Areli Arciniega [facility] URINE CULTURE COLLECTION 2022-02-07 18:06:00 [facility] KIT ELECTROLYTES, URINE 2022-02-07 18:06:00 Jyoti Carrillo [facility] OSMOLALITY, URINE 2022-02-07 18:06:00 [facility] SARS-COV-2, FLU A/B, RSV 2022-02-07 18:05:00 Jyoti Carrillo [facility] CORONAVIRUS, COVID-19, OLENA 2022-02-07 18:05:00 Jyoti Carrillo [facility] NUTRITION CONSULT 2022-02-07 17:43:36 Jian Schmitt [facility] ASSESSMENT BASIC METABOLIC PANEL 2022-02-07 17:18:00 Jyoti Carrillo [facility] LACTIC ACID 2022-02-07 14:04:00 Areli Arciniega alth CBC/DIFF 2022-02-07 14:03:00 Areli Arciniega alth BASIC METABOLIC PANEL 2022-02-07 14:03:00 Areli Arciniega [facility] LIVER PROFILE 2022-02-07 14:03:00 Areli Arciniega alth LIPASE 2022-02-07 14:03:00 Areli Arciniega [facility] alth MAGNESIUM 2022-02-07 14:03:00 [facility] health[facility]li [facility] alth PHOSPHORUS 2022-02-07 14:03:00 Areli Arciniega [facility] alth TROPONIN I 2022-02-07 14:03:00 Areli Arciniega alth CBC 2022-02-07 14:03:00 [facility] alth 12 LEAD EKG 2022-01-21 15:46:10 Ori Goldberg [facility] h CBC/DIFF 2022-01-21 04:11:00 Tien Lucas [facility] MAGNESIUM 2022-01-21 04:11:00 Tien Lucas [facility] PHOSPHORUS 2022-01-21 04:11:00 Tien Lucas P [facility] BASIC METABOLIC PANEL 2022-01-21 04:11:00 Ori Goldberg [facility] CBC 2022-01-21 04:11:00 Tien Lucas [facility] CBC/DIFF 2022-01-20 04:37:00 Tien Lucas P [facility] MAGNESIUM 2022-01-20 04:37:00 [facility] Tien P [facility] PHOSPHORUS 2022-01-20 04:37:00 [facility], Tien P [facility] BASIC METABOLIC PANEL 2022-01-20 04:37:[address] [facility] CBC 2022-01-20 04:37:00 [facility] Tien P [facility] MAGNESIUM 2022-01-19 18:09:00 [facility] Tien P [facility] PHOSPHORUS 2022-01-19 18:09:00 [facility], Tien P [facility] BASIC METABOLIC PANEL 2022-01-19 18:09:00 [facility], Tien P [facility] CORTISOL, TOTAL 2022-01-19 18:09:00 Karin Bassett [facility] URINALYSIS W/REFLEX TO 2022-01-19 17:22:00 [facility] Tien P [facility] URINE CULTURE URINALYSIS 2022-01-19 17:22:00 [facility] URINE CULTURE COLLECTION 2022-01-19 17:22:00 LindseyTien P [facility] KIT COMPUTED TOMOGRAPHY 2022-01-19 13:29:00 [facility] Tien P [facility] ABDOMEN AND PELVIS WITHOUT CONTRAST CBC/DIFF 2022-01-19 04:44:00 LindseyNoeh P [facility] CBC 2022-01-19 04:44:00 [facility] Tien P [facility] DIFFERENTIAL, MANUAL (NO 2022-01-19 04:44:00 LindseyTien P [facility] MORPHOLOGY)-WAM BASIC METABOLIC PANEL 2022-01-18 17:15:00 [facility] Tien P [facility] CBC/DIFF 2022-01-18 04:46:00 [facility] MAGNESIUM 2022-01-18 04:46:00 [facility], Tien P [facility] PHOSPHORUS 2022-01-18 04:46:00 [facility], Tien P [facility] BASIC METABOLIC PANEL 2022-01-18 04:46:00 Ori Goldberg [facility] CBC 2022-01-18 04:46:00 [facility] Tien Khanna HIV AG/AB COMBO ROUTINE 2022-01-18 04:46:00 Karin Bassett [facility] SCREENING ENTERIC PATHOGENS NUCLEIC 2022-01-18 03:25:00 Karin Bassett [facility] ACID TEST BASIC METABOLIC PANEL 2022-01-18 00:29:00 YusufOri [facility] BASIC METABOLIC PANEL 2022-01-17 17:07:00 [facility] BASIC METABOLIC PANEL 2022-01-17 13:15:00 [facility] CALPROTECTIN FECAL 2022-01-17 12:38:00 Tien Lucas ealtgera FECAL LEUKOCYTES 2022-01-17 12:38:00 Tien Lucas [facility] lt T-TRANSGLUTAMINASE IGA 2022-01-17 12:22:00 [facility] BASIC METABOLIC PANEL 2022-01-17 08:51:00 [facility] BASIC METABOLIC PANEL 2022-01-17 04:47:00 T[facility] CBC/DIFF 2022-01-17 04:47:00 Tien Lucas th MAGNESIUM 2022-01-17 04:47:00 Tien Lucas th PHOSPHORUS 2022-01-17 04:47:00 Tien Lucas CBC 2022-01-17 04:47:00 Tien Lucas BASIC METABOLIC PANEL 2022-01-17 00:08:00 T[facility] 12 LEAD EKG 2022-01-16 21:23:25 Tien Lucas [facility] BASIC METABOLIC PANEL 2022-01-16 21:08:00 T[facility] XRAY CHEST 2 VIEWS 2022-01-16 19:56:00 Tien Lucas IP CONSULT TO PHYSICAL 2022-01-16 19:17:17 Tien Lucas [facility] THERAPY CONSULT CLINICAL CASE 2022-01-16 19:17:17 T[facility] MANAGEMENT (RN/SW) SEQUENTIAL COMPRESSION 2022-01-16 19:17:17 Tien [facility] PUMP SODIUM, URINE, RANDOM 2022-01-16 16:00:00 NievesFrankieeddie Santana [facility] CREATININE, URINE, RANDOM 2022-01-16 16:00:00 Kevin Nieves [facility] OSMOLALITY, URINE 2022-01-16 16:00:00 Kevin Nieves [facility] SARS-COV-2, FLU A/B, RSV 2022-01-16 15:20:00 Kevin Nieves [facility] CORONAVIRUS, COVID-19, OLENA 2022-01-16 15:20:00 Kevin Nieves [facility] FOLIC ACID 2022-01-16 14:13:00 Kevin Nieves [facility] CREATININE POC 2022-01-16 13:55:00 Raymon Martin [facility] BMP POC 2022-01-16 13:46:00 Raymon Martin [facility] CBC/DIFF 2022-01-16 12:12:00 Raymon Martin [facility] CBC 2022-01-16 12:12:00 Raymon Martin [facility] BASIC METABOLIC PANEL 2022-01-16 12:11:00 Sadiq Vargas [facility] MAGNESIUM 2022-01-16 12:11:00 Sadiq Vargas a lt VITAMIN B12 2022-01-16 12:11:00 Kevin Nieves [facility] OSMOLALITY,SERUM 2022-01-16 12:11:00 Kevin Nieves [facility] INFUSION PUMP 2022-01-11 09:21:05 Helene Anderson [facility] GLUCOSE POC 2022-01-11 07:54:00 Helene Anderson [facility] BASIC METABOLIC PANEL 2022-01-11 04:07:00 Merissa Richards [facility] MAGNESIUM 2022-01-11 04:07:00 [facility] PHOS[facility]US 2022-01-11 04:07:00 Merissa [facility] CBC/DIFF 2022-01-11 04:06:00 [facility] IRON PROFILE 2022-01-11 04:06:00 Brodie Richardsa Felicita [facility] FOLIC ACID 2022-01-11 04:06:00 Fercho Merissa Mims [facility] CBC 2022-01-11 04:06:00 Fercho [facility]ims [facility] GLUCOSE POC 2022-01-10 18:16:00 Helene Anderson [facility] URINALYSIS 2022-01-10 16:10:00 Merissa Richards [facility] URINALYSIS 2022-01-10 16:10:00 Brodie Richardsa Felicita [facility] SARS-COV-2, FLU A/B, RSV 2022-01-10 15:54:00 Merissa Richards [facility] CORONAVIRUS, COVID-19, OLENA 2022-01-10 15:54:00 Antoine Hester [facility] BASIC METABOLIC PANEL 2022-01-10 15:54:00 Merissa Richards [facility] VITAMIN B12 2022-01-10 15:54:00 Brodie Richardsa Felicita [facility] VBG POC 2022-01-10 11:14:00 Dia Jewell [facility] CBC/DIFF 2022-01-10 11:13:00 Antoine Hester [facility] BASIC METABOLIC PANEL 2022-01-10 11:13:00 Antoine Hester [facility] LACTIC ACID 2022-01-10 11:13:00 Antoine Hester [facility] CBC 2022-01-10 11:13:00 Antoine Hester [facility] LIVER PROFILE 2022-01-10 11:13:00 Merissa Richards [facility] CK, TOTAL 2022-01-10 11:13:00 Merissa Richards [facility] FERRITIN 2022-01-10 11:13:00 [facility] CREATINE KINASE MB (CKMB) 2022-01-10 11:13:00 Merissa Richards [facility] XRAY CHEST 2 VIEWS 2022-01-08 21:50:14 Tanja Sebastian [facility] CBC/DIFF 2022-01-08 21:27:00 Tanja Sebastian [facility] BASIC METABOLIC PANEL 2022-01-08 21:27:00 Jaz, Tanja Watson [facility] LIVER PROFILE 2022-01-08 21:27:00 Tanja Sebastian [facility] CK, TOTAL 2022-01-08 21:27:00 Tanja Sebastian [facility] TROPONIN I 2022-01-08 21:27:00 Tanja Sebastian [facility] lt CBC 2022-01-08 21:27:00 Tanja Sebastian [facility] CREATINE KINASE MB (CKMB) 2022-01-08 21:27:00 Tanja Sebastian [facility] 12 LEAD EKG 2022-01-08 20:59:56 Tanja Sebastian [facility] COMP. METABOLIC PANEL 2021-09-14 03:41:00 Mickey Ramos [facility] ([id number]) [facility] CBC WITH DIFF 2021-09-14 03:41:00 Mickey Ramos [facility] CT HEAD WO CONTRAST 2021-09-12 14:10:00 Alona Carty [facility] TROPONIN I 2021-09-12 13:00:00 [facility] BASIC METABOLIC PANEL (NA, 2021-09-12 13:00:00 [facility] K, CL, CO2, GLUCOSE, BUN, Medica l Branch CREATININE, CA) CBC WITH DIFF 2021-09-12 13:00:00 [facility] N-TERMINAL PRO-BNP 2021-09-12 13:00:00 Alona Cart[facility] LIPASE 2021-09-09 05:30:00 Sebastian Pacheco [facility] COMP. METABOLIC PANEL 2021-09-09 05:30:00 Sebastian Pacheco [facility] ([id number]) [facility] CBC WITH DIFF 2021-09-09 05:30:00 Sebastian Pacheco [facility] URINALYSIS 2021-09-08 04:45:00 Sebastian Pacheco [facility] CT ABDOMEN PELVIS W 2021-09-08 02:25:23 Sebastian Pacheco [facility] CONTRAST Medical Branch LIPASE 2021-09-08 02:02:00 Sebastian Pacheco [facility] COMP. METABOLIC PANEL 2021-09-08 02:02:00 Sebastian Pacheco [facility] ([id number]) Medical Branch CBC WITH DIFF 2021-09-08 02:02:00 Sebastian Pacheco [facility] LACTIC ACID WHOLE BLOOD 2021-09-08 02:02:00 Sebastian Pacheco [facility] COVID-19 (ID NOW RAPID 2021-09-08 01:54:00 Sebastian Pacheco [facility] TESTING) Medical Branch BASIC METABOLIC PANEL (NA, 2021-09-04 12:30:[address] [facility] K, CL, CO2, GLUCOSE, BUN, Medica l Branch CREATININE, CA) BASIC METABOLIC PANEL (NA, 2021-09-04 12:30:[address] [facility] K, CL, CO2, GLUCOSE, BUN, Medica l Branch CREATININE, CA) SURGICAL PATHOLOGY EXAM 2021-09-03 14:01:00 Mayela [facility] COLOSTOMY REVISION 2021-09-03 12:58:00 Mayela [facility] COLOSTOMY REVISION 2021-09-03 12:58:00 Mayela [facility] BASIC METABOLIC PANEL (NA, 2021-09-03 11:26:00 Cynthia Siddiqi [facility] K, CL, CO2, GLUCOSE, BUN, Medica l Branch CREATININE, CA) CBC WITHOUT DIFF 2021-09-03 11:26:00 Neeru [facility] BASIC METABOLIC PANEL (NA, 2021-09-03 11:26:00 Cynthia Siddiqi [facility] K, CL, CO2, GLUCOSE, BUN, Medica l Branch CREATININE, CA) CBC WITHOUT DIFF 2021-09-03 11:26:00 [facility] TRANSTHORACIC ECHO (TTE) 2021-09-02 21:22:12 [facility]/ CONTRAST Medical Bra nch TRANSTHORACIC ECHO (TTE) 2021-09-02 21:22:12 Neeru, [facility] COMPLETE W/ CONTRAST Medical [facility] COVID-19 (ID NOW RAPID 2021-09-02 19:35:00 Demario Godoy [facility] TESTING) Medical Branch LAB ONLY COVID 2021-09-02 19:35:00 Demario Godoy [facility] INTERPRETATION Medical Branch COVID-19 (ID NOW RAPID 2021-09-02 19:35:00 Demario Godoy [facility] TESTING) Medical Branch LAB ONLY COVID 2021-09-02 19:35:00 Demario Godoy [facility] BASIC METABOLIC PANEL (NA, 2021-09-02 10:40:00 Siddiqi, [...] CA) BLOOD CULTURE SCREEN 2021-09-01 08:03:00 Chasity [facility] BASIC METABOLIC PANEL (NA, 2021-09-01 08:03:00 Siddiqi, Cynthia [employer] [facility] [facility] [place] K, CL, CO2, GLUCOSE, BUN, Medica l Branch CREATININE, CA) CBC WITH DIFF 2021-09-01 08:03:00 Neeru [facility] BLOOD CULTURE SCREEN 2021-09-01 08:03:00 Chasity [facility] BASIC METABOLIC PANEL (NA, 2021-09-01 08:03:00 Siddiqi, [facility] K, CL, CO2, GLUCOSE, BUN, Medica l Branch CREATININE, CA) CBC WITH DIFF 2021-09-01 08:03:00 Neeru [facility] MAGNESIUM 2021-09-01 02:09:00 [facility] BASIC METABOLIC PANEL (NA, 2021-09-01 02:09:[address] [facility] K, CL, CO2, GLUCOSE, BUN, Arpita Medica l Branch CREATININE, CA) MAGNESIUM 2021-09-01 02:09:00 [facility] BASIC METABOLIC PANEL (NA, 2021-09-01 02:09:[address] [facility] K, CL, CO2, GLUCOSE, BUN, Arpita Medica l Branch CREATININE, CA) LACTIC ACID WHOLE BLOOD 2021-08-31 12:40:00 [facility]LO[facility] 2021-08-31 12:40:00 [facility] BASIC METABOLIC PANEL (NA, 2021-08-31 11:44:00 Gaspar, [facility] K, CL, CO2, GLUCOSE, BUN, Medica l Branch CREATININE, CA) BASIC METABOLIC PANEL (NA, 2021-08-31 11:44:00 Gaspar, [facility] K, CL, CO2, GLUCOSE, BUN, Medica l Branch CREATININE, CA) BASIC METABOLIC PANEL (NA, 2021-08-31 06:29:00 Gaspar, [facility] [place] K, CL, CO2, GLUCOSE, BUN, Medica l Branch CREATININE, CA) LACTIC ACID WHOLE BLOOD 2021-08-31 06:29:00 [facility] BAS[facility]OLIC PANEL (NA, 2021-08-31 06:29:00 Gaspar, [facility] [place] K, CL, CO2, GLUCOSE, BUN, Medica l Branch CREATININE, CA) LACTIC ACID WHOLE BLOOD 2021-08-31 06:29:00 [facility] BLOOD CULTURE SCREEN 2021-08-31 06:28:00 Chasity, [facility] BLOOD CULTURE WORKUP 2021-08-31 06:28:00 Chasity [facility] GRAM POSITIVE BLOOD 2021-08-31 06:28:[address] [facility] PATHOGENS DNA [facility] PROBE-AEROBIC BLOOD CULTURE SCREEN 2021-08-31 06:28:00 Chasity [facility] BLOOD CULTURE WORKUP 2021-08-31 06:28:00 Chasity [facility] GRAM POSITIVE BLOOD 2021-08-31 06:28:00 Gaspar, [facility] PATHOGENS DNA [facility] PROBE-AEROBIC XR CHEST 2 VW 2021-08-31 03:08:00 Riccardo [facility] XR CHEST 2 VW 2021-08-31 03:08:00 Riccardo [facility] OSMOLALITY, SERUM OR 2021-08-31 02:44:00 [facility] 2021-08-31 02:44:00 Rcicardo [facility] THYROID STIMULATING 2021-08-31 02:44:00 [facility] BAS[facility]OLIC PANEL (NA, 2021-08-31 02:44:00 [facility], CL, CO2, GLUCOSE, BUN, [facility] [place] CREATININE, CA) OSMOLALITY, SERUM OR 2021-08-31 02:44:00 [facility] 2021-08-31 02:44:00 Riccardo [facility] THYROID STIMULATING 2021-08-31 02:44:00 [facility] BASIC MET[facility]OLIC PANEL (NA, 2021-08-31 02:44:00 [facility] K, CL, CO2, GLUCOSE, BUN, [facility] Medica l Branch CREATININE, CA) OSMOLALITY URINE 2021-08-31 00:08:00 Gaspar, [facility] URINALYSIS 2021-08-31 00:08:00 [facility] RANDOM 2021-08-31 00:08:00 Gaspar [facility] CHLORIDE, URINE RANDOM 2021-08-31 00:08:[address] [facility] OSMOLALITY URINE 2021-08-31 00:08:00 Gaspar [facility] URINALYSIS 2021-08-31 00:08:00 Riccardo [facility] SODIUM, URINE RANDOM 2021-08-31 00:08:00 Gaspar [facility] CHLORIDE, URINE RANDOM 2021-08-31 00:08:[address] [facility] TROPONIN I 2021-08-30 23:27:00 Riccardo [facility] COMP. METABOLIC PANEL 2021-08-30 23:27:00 Riccardo [facility] ([id number]) [facility] CBC WITH DIFF 2021-08-30 23:27:00 Riccardo [facility] N-TERMINAL PRO-BNP 2021-08-30 23:27:00 Riccardo [facility] TROPONIN I 2021-08-30 23:27:00 Riccardo [facility] COMP. METABOLIC PANEL 2021-08-30 23:27:00 Riccardo [facility] ([id number]) [facility] CBC WITH DIFF 2021-08-30 23:27:00 Riccardo [facility] N-TERMINAL PRO-BNP 2021-08-30 23:27:00 Riccardo [facility] HB ECG ROUTINE & RHYTHM 2021-08-30 23:04:48 Gayatri Gu [facility] HB ECG ROUTINE & RHYTHM 2021-08-30 23:04:48 [facility]Gayatri [facility] XR CHEST 1 VW 2021-08-30 00:31:51 Alvarez [facility] POCT RAPID STREP SCREEN 2021-08-30 00:24:[address] [facility] FOR GROUP A [facility] Branch GALV ONLY - INFLUENZA A B 2021-08-30 00:15:[address] [facility] RSV PCR Medical Branch COVID-19 (MOLECULAR 2021-08-30 00:15:00 [facility] NUCLEIC ACID AMPLIFICATION) PREALBUMIN, SERUM 2021-08-05 10:46:00 Ceasr [facility] PHOSPHORUS 2021-08-05 10:46:00 Cesar [facility] ALBUMIN 2021-08-05 10:46:00 Cesar [facility] MAGNESIUM 2021-08-05 10:46:00 Cesar [facility] BASIC METABOLIC PANEL (NA, 2021-08-05 10:46:00 Cesar, [facility], CL, CO2, GLUCOSE, BUN, Medica l Branch CREATININE, CA) CBC WITH DIFF 2021-08-05 10:46:00 Cesar [facility] COVID-19 (ID NOW RAPID 2021-08-05 00:29:00 Jessica Guerrero [facility] TESTING) Medical Branch PHOSPHORUS 2021-08-04 11:37:00 Hakeem Jo [facility] MAGNESIUM 2021-08-04 11:37:00 Hakeem Jo [facility] BASIC METABOLIC PANEL (NA, 2021-08-04 11:37:00 Beau Benedict [facility] K, CL, CO2, GLUCOSE, BUN, [place] Medica l Branch CREATININE, CA) CBC WITH DIFF 2021-08-04 11:37:00 Hakeem Jo [facility] PHOSPHORUS 2021-08-03 10:36:00 Hakeem Jo [facility] MAGNESIUM 2021-08-03 10:36:00 Hakeem Jo [facility] BASIC METABOLIC PANEL (NA, 2021-08-03 10:36:00 Hakeem Jo, [employer] [place] K, CL, CO2, GLUCOSE, BUN, [place] CREATININE, CA) CBC WITH DIFF 2021-08-03 10:36:00 Hakeem Jo [facility] PHOSPHORUS 2021-08-02 10:53:00 Hakeem Jo [facility] MAGNESIUM 2021-08-02 10:53:00 [facility] BASIC METABOLIC PANEL (NA, 2021-08-02 10:53:00 Hakeem Jo, [employer] [place] K, CL, CO2, GLUCOSE, BUN, [place] [facility] CREATININE, CA) CBC WITH DIFF 2021-08-02 10:53:00 Hakeem Jo [facility] PHOSPHORUS 2021-08-01 10:03:00 Hakeem Jo [facility] MAGNESIUM 2021-08-01 10:03:00 [facility] BASIC METABOLIC PANEL (NA, 2021-08-01 10:03:00 Hakeem Jo, [employer] [place] K, CL, CO2, GLUCOSE, BUN, [place] [facility] CREATININE, CA) CBC WITH DIFF 2021-08-01 10:03:00 Hakeem Jo [facility] PREALBUMIN, SERUM 2021-07-31 10:22:[address] [facility] [place], [place] [facility] h PHOSPHORUS 2021-07-31 10:22:00 Hakeem Jo [facility] MAGNESIUM 2021-07-31 10:22:00 Hakeem Jo [facility] BASIC METABOLIC PANEL (NA, 2021-07-31 10:22:00 Hakeem Jo, [employer] [place] K, CL, CO2, GLUCOSE, BUN, [place] [facility] CREATININE, CA) CBC WITH DIFF 2021-07-31 10:22:00 Hakeem Jo [facility] COVID-19 (ID NOW RAPID 2021-07-30 06:13:00 Jonah Rees [facility] TESTING) Medical Branch LAB ONLY COVID 2021-07-30 06:13:00 Jonah Rees [facility] INTERPRETATION [facility] CT ABDOMEN PELVIS W 2021-07-30 05:19:01 Jonah Rees [facility] CONTRAST [facility] Branch COMP. METABOLIC PANEL 2021-07-30 03:25:00 Jonah Rees [facility] ([id number]) Medical Branch LACTIC ACID WHOLE BLOOD 2021-07-30 02:53:00 NegritaJonah escoto [facility] LIPASE 2021-07-30 02:52:00 NegritaJonah escoto [facility] CBC WITH DIFF 2021-07-30 02:52:00 Jonah Rees [facility] CONSENT/REFUSAL FOR 2021-07-30 02:09:09 Doctor Unassigned, [facility] DIAGNOSIS AND TREATMENT [place] [facility] PHOSPHORUS 2021-07-26 12:30:00 Antonino jin [facility] [place] [place] [facility] MAGNESIUM 2021-07-26 12:30:00 Antonino Dietrich [facility] [place], [place] [facility] BASIC METABOLIC PANEL (NA, 2021-07-26 12:30:00 Antonino jin [facility] K, CL, CO2, GLUCOSE, BUN, [place], [place] [facility] CREATININE, CA) CBC WITH DIFF 2021-07-26 12:30:00 Antonino Dietrich [facility] [place], [place] [facility] PHOSPHORUS 2021-07-25 11:32:00 Hakeem Jo [facility] MAGNESIUM 2021-07-25 11:32:00 [facility] BASIC METABOLIC PANEL (NA, 2021-07-25 11:32:00 Antonino Karlo de [facility] [place] K, CL, CO2, GLUCOSE, BUN, [place], [place] [facility] CREATININE, CA) CBC WITH DIFF 2021-07-25 11:32:00 Antonino jin [facility] [place], [place] [facility] CBC WITH DIFF 2021-07-25 04:13:00 Cesar, [facility] PHOSPHORUS 2021-07-24 12:18:00 Cesar, [facility] MAGNESIUM 2021-07-24 12:18:00 Cesar, [facility] BASIC METABOLIC PANEL (NA, 2021-07-24 12:18:00 Cesar, Adil [employer] [facility] [place] K, CL, CO2, GLUCOSE, BUN, Medica l Branch CREATININE, CA) COVID-19 (ID NOW RAPID 2021-07-23 15:23:00 Flaco Lemus [facility] TESTING) Medical Branch LAB ONLY COVID 2021-07-23 15:23:00 Flaco Lemus [facility] INTERPRETATION [facility] URINALYSIS 2021-07-23 12:49:00 Hakeem Jo [facility] PHOSPHORUS 2021-07-23 12:42:00 Hakeem Jo [facility] MAGNESIUM 2021-07-23 12:42:00 Hakeem Jo [facility] BASIC METABOLIC PANEL (NA, 2021-07-23 12:42:00 Beau [facility] [employer] [place] K, CL, CO2, GLUCOSE, BUN, [place] [facility] CREATININE, CA) CBC WITH DIFF 2021-07-23 12:42:00 Hakeem Jo [facility] CT ABDOMEN PELVIS WO 2021-07-23 08:55:17 Flaco Lemus [facility] CONTRAST [facility] Branch EXTERNAL PROVIDER RECORDS 2021-06-25 05:01:00 Doctor Unassigned, [facility] [place] [facility] BASIC METABOLIC PANEL (NA, 2021-06-03 10:37:[address] [facility] K, CL, CO2, GLUCOSE, BUN, Medica l Branch CREATININE, CA) BASIC METABOLIC PANEL (NA, 2021-06-02 10:54:00 Monica [facility] K, CL, CO2, GLUCOSE, BUN, Medica l Branch CREATININE, CA) CLOSTRIDIUM DIFFICILE 2021-06-01 22:51:00 Charly Fowler [facility] TOXIN [facility] FECAL PATHOGENS BY PCR 2021-06-01 22:51:00 [facility] BASIC METABOLIC PANEL (NA, 2021-06-01 15:42:[address] [facility] K, CL, CO2, GLUCOSE, BUN, Medica l Branch CREATININE, CA) LACTIC ACID WHOLE BLOOD 2021-06-01 05:38:00 Clementine Castellon [facility] CT ABDOMEN PELVIS W 2021-05-31 23:25:45 Willie Garrett [facility] CONTRAST [facility] Branch LIPASE 2021-05-31 22:44:00 Willie Garrett [facility] TROPONIN I 2021-05-31 22:44:00 Willie Garrett [facility] COMP. METABOLIC PANEL 2021-05-31 22:44:00 Willie Garrett [facility] ([id number]) Medical Branch CBC WITH DIFF 2021-05-31 22:44:00 Willie Garrett [facility] COVID-19 (ID NOW RAPID 2021-05-31 22:44:00 Willie Garrett [facility] TESTING) Medical Branch LAB ONLY COVID 2021-05-31 22:44:00 Willie Garrett [facility] INTERPRETATION [facility] Branch PHOSPHORUS 2021-05-21 09:03:00 Cesar [facility] MAGNESIUM 2021-05-21 09:03:00 Cesar [facility] BASIC METABOLIC PANEL (NA, 2021-05-21 09:03:00 Agatha Noonan [facility] K, CL, CO2, GLUCOSE, BUN, Medica l Branch CREATININE, CA) CBC WITH DIFF 2021-05-21 09:03:00 Agatha Noonan [facility] XR KUB 2021-05-20 20:02:49 Andrzej [facility] LIPASE 2021-05-20 20:00:00 Andrzej [facility] COMP. METABOLIC PANEL 2021-05-20 20:00:00 Bernardo Donnelly [facility] ([id number]) Medical Branch CBC WITH DIFF 2021-05-20 20:00:00 Andrzej [facility] LACTIC ACID WHOLE BLOOD 2021-05-20 20:00:00 Andrzej [facility] COVID-19 (ID NOW RAPID 2021-05-20 20:00:00 Andrzej [facility] TESTING) Medical Branch BASIC METABOLIC PANEL (NA, 2021-05-08 10:04:00 [facility], CL, CO2, GLUCOSE, BUN, Medica l Branch CREATININE, CA) CBC WITH DIFF 2021-05-08 10:04:00 Irene Lora [facility] XR KUB 2021-05-08 09:44:22 Beto [facility] XR ABDOMEN 1 VW 2021-05-08 05:32:36 Irene Lora [facility] CT ABDOMEN PELVIS W 2021-05-08 01:08:43 Alona Pérez [facility] CONTRAST [facility] Branch HEPATIC FUNCTION PANEL 2021-05-08 00:49:00 Beot [facility] ([id number]) (ALB,T.PRO,BILI Medical Branch T,BU/BC,ALT,AST,ALK PHOS) BASIC METABOLIC PANEL (NA, 2021-05-08 00:49:00 Alona Pérez [facility] K, CL, CO2, GLUCOSE, BUN, [facility] [place] CREATININE, CA) CBC WITH DIFF 2021-05-08 00:49:00 Beto [facility] COVID-19 (ID NOW RAPID 2021-05-08 00:42:00 Beto [facility] TESTING) Medical Branch LAB ONLY COVID 2021-05-08 00:42:00 Beto [facility] INTERPRETATION [facility] NOTICE OF PRIVACY 2020-09-27 01:47:31 Doctor Unassigned, [facility] PRACTICES [place] [facility] [place] CONSENT/REFUSAL FOR 2020-09-27 01:47:01 Doctor Unassigned, [facility] DIAGNOSIS AND TREATMENT [place] [facility] [place] BASIC METABOLIC PANEL (NA, 2020-08-23 10:03:[address] [facility] K, CL, CO2, GLUCOSE, BUN, Medica l Branch CREATININE, CA) CBC WITHOUT DIFF 2020-08-23 10:03:00 Judith Ingram [facility] COVID-19 (ID NOW RAPID 2020-08-23 00:23:00 Funmilayo Pinzon [facility] TESTING) Medical [place] HB ECG ROUTINE & RHYTHM 2020-08-22 22:19:37 Funmilayo Pinzon [facility] STRIP [facility] HEPATIC FUNCTION PANEL 2020-08-22 22:08:00 Funmilayo Pinzon [facility] ([id number]) (ALB,T.PRO,BILI Medical Branch T,BU/BC,ALT,AST,ALK PHOS) BASIC METABOLIC PANEL (NA, 2020-08-22 22:08:[address] [facility] K, CL, CO2, GLUCOSE, BUN, Medica l Branch CREATININE, CA) CBC WITH DIFF 2020-08-22 22:08:00 Funmilayo Pinzon [facility] CT SOFT TISSUE NECK W 2020-07-10 00:21:10 Juan M Aguillon [facility] CONTRAST [facility] URINALYSIS 2020-07-09 23:07:00 Juan M Aguillon [facility] BASIC METABOLIC PANEL (NA, 2020-07-09 22:51:[address] [facility] K, CL, CO2, GLUCOSE, BUN, Medica l Branch CREATININE, CA) CBC WITH DIFF 2020-07-09 22:51:00 Juan M Aguillon [facility] RAPID STREP SCREEN FOR 2020-07-09 22:51:[address] [facility] GROUP A Medical Branch COVID-19 (ID NOW RAPID 2020-07-09 22:51:[address] [facility] TESTING) Medical Branch CT ABDOMEN PELVIS W 2020-06-05 13:02:55 Travis Valdez [facility] URINALYSIS 2020-06-05 13:02:00 More Goetz [facility] EKG-12 LEAD 2020-06-05 11:57:46 More Goetz [facility] LIPASE 2020-06-05 11:57:00 More Goetz [facility] TROPONIN I 2020-06-05 11:57:00 More Goetz [facility] HEPATIC FUNCTION PANEL 2020-06-05 11:57:00 More Goetz [facility] ([id number]) ([facility] T,BU/BC,ALT,AST,ALK PHOS) BASIC METABOLIC PANEL (NA, 2020-06-05 11:57:[address] [facility] K, CL, CO2, GLUCOSE, BUN, Medica l Branch CREATININE, CA) CBC WITH DIFF 2020-06-05 11:57:00 More Goetz [facility] LACTIC ACID WHOLE BLOOD 2020-06-05 11:57:00 More Goetz U [facility] PHOSPHORUS 2020-05-31 07:54:00 Katia [facility] MAGNESIUM 2020-05-31 07:54:00 Katia [facility] BASIC METABOLIC PANEL (NA, 2020-05-31 07:54:[address] [facility] K, CL, CO2, GLUCOSE, BUN, Medica l Branch CREATININE, CA) CBC WITH DIFF 2020-05-31 07:54:00 Katia [facility] IR CHANGE OF ABSCESS DRAIN 2020-05-30 19:33:43 Ashwin Marshall [facility] PHOSPHORUS 2020-05-30 08:19:00 Socorro Gonzales [facility] MAGNESIUM 2020-05-30 08:19:00 Socorro Gonzales [facility] BASIC METABOLIC PANEL (NA, 2020-05-30 08:19:00 Socorro escoto [employer] [place] K, CL, CO2, GLUCOSE, BUN, Rex [facility] CREATININE, CA) PHOSPHORUS 2020-05-29 06:43:00 Lambreton Gonzales, [facility] MAGNESIUM 2020-05-29 06:43:00 Lambreton Gonzales, [facility] BASIC METABOLIC PANEL (NA, 2020-05-29 06:43:00 Lambreton Carlos a, [facility] K, CL, CO2, GLUCOSE, BUN, [facility] CREATININE, CA) PHOSPHORUS 2020-05-28 09:08:00 Lambreton Gonzales, [facility] MAGNESIUM 2020-05-28 09:08:00 Lambreton Gonzales, [facility] BASIC METABOLIC PANEL (NA, 2020-05-28 09:08:00 Lambreton Carlos a, [facility] K, CL, CO2, GLUCOSE, BUN, [facility] CREATININE, CA) PHOSPHORUS 2020-05-27 09:33:00 Lambreton Gonzales, [facility] MAGNESIUM 2020-05-27 09:33:00 Lambreton Gonzales, [facility] BASIC METABOLIC PANEL (NA, 2020-05-27 09:33:00 Lambreton Carlos a, [facility] K, CL, CO2, GLUCOSE, BUN, [facility] CREATININE, CA) PHOSPHORUS 2020-05-26 09:27:00 Lambreton Gonzales, [facility] MAGNESIUM 2020-05-26 09:27:00 Lambreton Gonzales, [facility] BASIC METABOLIC PANEL (NA, 2020-05-26 09:27:00 Lambreton Carlos a, [facility] K, CL, CO2, GLUCOSE, BUN, [facility] CREATININE, CA) PHOSPHORUS 2020-05-25 21:42:00 Lambreton Gonzales, [facility] MAGNESIUM 2020-05-25 21:42:00 Lambreton Gonzales, [facility] BASIC METABOLIC PANEL (NA, 2020-05-25 21:42:00 Lambreton Carlos a, [employer] [place] K, CL, CO2, GLUCOSE, BUN, [facility] CREATININE, CA) CBC WITH DIFF 2020-05-25 21:42:00 [facility] 2020-05-25 20:39:54 Lambreton Gonzales, [facility] PHOSPHORUS 2020-05-25 08:48:00 [facility] MAGNESIUM 2020-05-25 08:48:00 [facility] BASIC METABOLIC PANEL (NA, 2020-05-25 08:48:00 Lambreton Carlos a, [facility] K, CL, CO2, GLUCOSE, BUN, [facility] CREATININE, CA) PHOSPHORUS 2020-05-24 20:41:00 [facility] MAGNESIUM 2020-05-24 20:41:00 [facility] BASIC METABOLIC PANEL (NA, 2020-05-24 20:41:00 Lambreton Carlos a, [facility] K, CL, CO2, GLUCOSE, BUN, [facility]x [facility] CREATININE, CA) IR CHANGE OF ABSCESS DRAIN 2020-05-24 17:57:11 Vance Stafford [facility] IR ASPIRATION ABSCESS 2020-05-24 17:24:40 Randa [facility] OR CYST BY NEEDLE [facility] ASPIRATE OR ABSCESS 2020-05-24 17:23:00 Nixon Prince [facility] CULTURE(AEROBIC/ANAEROBIC) Medic az Branch CBC WITH DIFF 2020-05-24 11:08:[address] [facility]BD[facility] PEL[facility] W 2020-05-23 15:02:24 Randa Julio [facility] CONTRAST [facility] BASIC METABOLIC PANEL (NA, 2020-05-23 09:45:00 [facility] CL, CO2, GLUCOSE, BUN, An[facility] CREATININE, CA) COVID-19 (PCR MOLECULAR 2020-05-23 06:53:00 Bia Pedro [facility] TESTING) Medical Branch URINALYSIS 2020-05-22 21:41:00 Colette Lageri [facility] LIPASE 2020-05-22 21:26:00 Colette [facility] HEPATIC FUNCTION PANEL 2020-05-22 21:26:00 LopezAlex sweeney [facility] ([id number]) (ALB,T.PRO,BILI [facility] T,BU/BC,ALT,AST,ALK PHOS) BASIC METABOLIC PANEL (NA, 2020-05-22 21:26:00 LopezAlex sweeney [facility] K, CL, CO2, GLUCOSE, BUN, Medica l Branch CREATININE, CA) CBC WITH DIFF 2020-05-22 21:26:00 Colette [facility] PROTHROMBIN TIME / INR 2020-05-22 21:26:00 Alex Lopez [facility] ACTIVATED PARTIAL THRMPLAS 2020-05-22 21:26:00 Alex Lopez [facility] XR CHEST 1 VW 2020-05-22 20:55:00 Colette Lageri [facility] HOSPITAL ADMISSION 2020-05-22 05:01:00 Doctor Unassigned, [facility] [place] [facility] URINALYSIS 2020-05-20 09:58:00 Jonah Rodriguez [facility] COVID-19 (ID NOW RAPID 2020-05-20 09:48:00 Jonah Rodriguez [facility] TESTING) Medical Branch CT ABDOMEN PELVIS W 2020-05-20 04:07:43 Jonah Rodriguez [facility] CONTRAST [facility] LIPASE 2020-05-20 03:09:00 Jonah Rodriguez [facility] MAGNESIUM 2020-05-20 03:09:00 Jonah Rodriguez [facility] TROPONIN I 2020-05-20 03:09:00 Jonah Rodriguez [facility] COMP. METABOLIC PANEL 2020-05-20 03:09:00 Jonah Rodriguez [facility] ([id number]) Medical Branch CBC WITH DIFF 2020-05-20 03:09:00 Jonah Rodriguez [facility] Medical Branch PHOSPHORUS 2020-05-10 09:13:00 [facility] 2020-05-10 09:13[facility]00 [facility] BASIC METABOLIC PANEL (NA, 2020-05-10 09:13:00 Randa, [facility] K, CL, CO2, GLUCOSE, BUN, Medica l Branch CREATININE, CA) CBC WITH DIFF 2020-05-10 09:13:00 Randa [facility] PHOSPHORUS 2020-05-09 10:28:00 [facility] 2020-05-09 10:28:00 [facility] BASIC METABOLIC PANEL (NA, 2020-05-09 10:28:00 Randa, [facility] [place] K, CL, CO2, GLUCOSE, BUN, Medica l Branch CREATININE, CA) CBC WITH DIFF 2020-05-09 10:28:00 Randa [facility] PHOSPHORUS 2020-05-08 11:18:00 [facility] 2020-05-08 11:18:00 [facility] BASIC METABOLIC PANEL (NA, 2020-05-08 11:18:00 Randa, [facility] [place] K, CL, CO2, GLUCOSE, BUN, Medica l Branch CREATININE, CA) CBC WITH DIFF 2020-05-08 11:18:00 Randa [facility] PHOSPHORUS 2020-05-07 09:21:00 Randa [facility] MAGNESIUM 2020-05-07 09:21:00 [facility] BASIC METABOLIC PANEL (NA, 2020-05-07 09:21:00 Randa [facility] [place] K, CL, CO2, GLUCOSE, BUN, Medica l Branch CREATININE, CA) CBC WITH DIFF 2020-05-07 09:21:00 [facility]US 2020-05-06 09:57:00 [facility] MAGNESIUM 2020-05-06 09:57:00 [facility] BASIC METABOLIC PANEL (NA, 2020-05-06 09:57:00 Randa [facility] K, CL, CO2, GLUCOSE, BUN, Medica l Branch CREATININE, CA) CBC WITH DIFF 2020-05-06 09:56:00 Randa [facility] IR DRAINAGE BY CATHETER 2020-05-05 19:55:00 Randa [facility] PERITONEAL OR [facility] [place] RETROPERITONEAL BODY FLUID 2020-05-05 19:06:00 Nixon [facility] CULTURE(AEROBIC/ANAEROBIC) [facility] FUNGUS (ROUTINE) CULTURE 2020-05-05 19:06:00 Suresh Nixon [facility] BODY FLUID 2020-05-05 19:00:00 Jerri [facility] CULTURE(AEROBIC/ANAEROBIC) [facility] FUNGUS (ROUTINE) CULTURE 2020-05-05 19:00:00 Ivan Guthrie [facility] PREPARE PACKED RBC 2020-05-05 15:59:33 [facility] GROUPING 2020-05-05 10:55:00 [facility] PREALBUMIN, SERUM 2020-05-05 08:56:00 [facility] 2020-05-05 08:56:00 [facility] MAGNESIUM 2020-05-05 08:56:00 Randa [facility] BASIC METABOLIC PANEL (NA, 2020-05-05 08:56:00 Randa [facility] K, CL, CO2, GLUCOSE, BUN, Medica l Branch CREATININE, CA) CBC WITH DIFF 2020-05-05 08:56:00 [facility] URINALYSIS 2020-05-05 05:11:00 Lora Hall [facility] CT ABDOMEN PELVIS W 2020-05-05 04:18:[address] [facility] LIPASE 2020-05-05 02:35:00 Lora Hall [facility] COMP. METABOLIC PANEL 2020-05-05 02:35:00 Lora Hall [facility] ([id number]) Medical Branch CBC WITH DIFF 2020-05-05 02:35:00 Lora Hall [facility] COVID-19 (ID NOW RAPID 2020-05-05 02:27:[address] [facility] TESTING) Medical Branch HOSPITAL ADMISSION 2020-05-04 05:01:00 Doctor Unassigned, [facility] [place] [facility] CBC WITH DIFF 2020-05-01 11:32:00 [facility]US 2020-05-01 11:32:00 [facility] MAGNESIUM 2020-05-01 11:32:00 [facility] BASIC METABOLIC PANEL (NA, 2020-05-01 11:32:00 Randa, [facility] K, CL, CO2, GLUCOSE, BUN, Medica l Branch CREATININE, CA) CBC WITH DIFF 2020-04-29 11:31:00 [facility] PHOS[facility]US 2020-04-29 11:31:00 [facility] 2020-04-29 11:31:00 [facility] BASIC METABOLIC PANEL (NA, 2020-04-29 11:31:00 Randa [facility] K, CL, CO2, GLUCOSE, BUN, Medica l Branch CREATININE, CA) CBC WITH DIFF 2020-04-28 08:51:00 Becky, [facility] MAGNESIUM 2020-04-28 08:51:00 Becky, [facility] BASIC METABOLIC PANEL (NA, 2020-04-28 08:51:00 Becky, [facility] K, CL, CO2, GLUCOSE, BUN, Cathryn Medica l Branch CREATININE, CA) CBC WITH DIFF 2020-04-27 09:34:00 Becky, [facility] MAGNESIUM 2020-04-27 09:34:00 Becky, [facility] BASIC METABOLIC PANEL (NA, 2020-04-27 09:34:00 Becky, [facility] K, CL, CO2, GLUCOSE, BUN, Cathryn Medica l Branch CREATININE, CA) CBC WITH DIFF 2020-04-26 09:27:00 Becky [facility] MAGNESIUM 2020-04-26 09:27:00 Becky [facility] BASIC METABOLIC PANEL (NA, 2020-04-26 09:27:00 Becky, [facility] K, CL, CO2, GLUCOSE, BUN, Cathryn Medica l Branch CREATININE, CA) CBC WITH DIFF 2020-04-25 08:59:00 Becky, [facility] MAGNESIUM 2020-04-25 08:59:00 Becky, [facility] BASIC METABOLIC PANEL (NA, 2020-04-25 08:59:00 Becky, [facility] K, CL, CO2, GLUCOSE, BUN, Cathryn Medica l Branch CREATININE, CA) CBC WITH DIFF 2020-04-24 09:44:00 Becky, [facility] MAGNESIUM 2020-04-24 09:44:00 Becky, [facility] BASIC METABOLIC PANEL (NA, 2020-04-24 09:44:00 Becky, [facility] K, CL, CO2, GLUCOSE, BUN, Cathryn Medica l Branch CREATININE, CA) CT ABDOMEN PELVIS W 2020-04-23 23:24:02 Grant Cheema, [facility] CONTRAST [facility] CT THORAX W CONTRAST 2020-04-23 23:24:02 Grant Cheema, [facility] COVID-19 (ID NOW RAPID 2020-04-23 15:06:00 Grant Cheema, [facility] TESTING) [facility] PREALBUMIN, SERUM 2020-04-23 13:42:00 Grant Cheema, [facility] POTASSIUM SERUM 2020-04-23 13:42:00 Becky [facility] CBC WITH DIFF 2020-04-23 10:17:00 Becky, [facility] MAGNESIUM 2020-04-23 10:17:00 Becky, [facility] BASIC METABOLIC PANEL (NA, 2020-04-23 10:17:00 Becky, [facility] K, CL, CO2, GLUCOSE, BUN, Cathryn Medica [facility] [place] CREATININE, CA) XR CHEST 1 VW 2020-04-23 10:03:00 Becky, [facility] MAGNESIUM 2020-04-22 10:37:00 Becky, [facility] BASIC METABOLIC PANEL (NA, 2020-04-22 10:37:00 Becky, [facility] K, CL, CO2, GLUCOSE, BUN, Cathryn [facility] CREATININE, CA) CBC WITH DIFF 2020-04-22 10:30:00 Becky [facility] XR CHEST 1 VW 2020-04-22 07:30:00 Becky [facility] CBC WITH DIFF 2020-04-21 13:09:00 Becky, [facility] MAGNESIUM 2020-04-21 13:09:00 Becky [facility] BASIC METABOLIC PANEL (NA, 2020-04-21 13:09:00 Becky [facility] K, CL, CO2, GLUCOSE, BUN, [facility] CREATININE, CA) XR CHEST 1 VW 2020-04-21 06:41:00 Grant Cheema [facility] XR CHEST 1 VW 2020-04-20 11:03:41 Grant Cheema [facility] CBC WITH DIFF 2020-04-20 09:45:[address] [facility] PREALBUMIN, SERUM 2020-04-20 09:45:00 [facility] PHOSPHORUS 2020-04-20 09:45:[address] [facility] MAGNESIUM 2020-04-20 09:45:[address] [facility] BASIC METABOLIC PANEL (NA, 2020-04-20 09:45:00 [facility]osvany Hern[facility] [place] K, CL, CO2, GLUCOSE, BUN, Medica l Branch CREATININE, CA) XR CHEST 1 2020-04-19 10:13:45 Becky [facility] CBC WITH DIFF 2020-04-19 10:10:[address] [facility] PHOSPHORUS 2020-04-19 10:10:[address] [facility] MAGNESIUM 2020-04-19 10:10:[address] [facility] BASIC METABOLIC PANEL (NA, 2020-04-19 10:10:00 Yosvany Herndon [facility] [place] K, CL, CO2, GLUCOSE, BUN, Medica l Branch CREATININE, CA) XR CHEST 1 2020-04-18 11:01:00 Becky [facility] CBC WITH DIFF 2020-04-18 10:19:[address] [facility] PHOSPHORUS 2020-04-18 10:19:[address] [facility] MAGNESIUM 2020-04-18 10:19:[address] [facility] BASIC METABOLIC PANEL (NA, 2020-04-18 10:19:00 Yosvany Hern[facility] [place] K, CL, CO2, GLUCOSE, BUN, Medica l Branch CREATININE, CA) XR CHEST 1 2020-04-17 18:58:00 Becky [facility] CBC WITH DIFF 2020-04-17 09:33:[address] [facility] PHOSPHORUS 2020-04-17 09:33:[address] [facility] MAGNESIUM 2020-04-17 09:33:[address] [facility] BASIC METABOLIC PANEL (NA, 2020-04-17 09:33:00 Yosvany Herndon [facility] [place] K, CL, CO2, GLUCOSE, BUN, Medica l Branch CREATININE, CA) XR CHEST 1 2020-04-17 08:52:00 Grant Cheema [facility] XR CHEST 1 VW 2020-04-16 23:45:00 [facility] 2020-04-16 21:50:00 Rivera [facility] CULTURE(AEROBIC/ANAEROBIC) [facility] FUNGUS (ROUTINE) CULTURE 2020-04-16 21:50:00 Vance Stafford [facility] CYTO PLEURAL FLUID 2020-04-16 21:50:00 Vance Stafford [facility] LDH TOTAL BODY FLUID 2020-04-16 21:50:00 Jamie Staffordalan [facility] AMYLASE BODY FLUID 2020-04-16 21:50:00 Rivera [facility] GLUCOSE BODY FLUID 2020-04-16 21:50:00 Rivera [facility] PH, BODY FLUID 2020-04-16 21:50:00 Rivera [facility] T.PROTEIN BODY FLUID 2020-04-16 21:50:00 Vance Stafford [facility] BODY FLUID DIRECT COUNT 2020-04-16 21:50:00 Vance Stafford [facility] IR PLEURAL DRAINAGE WITH 2020-04-16 21:36:25 Rosaura Pena [facility] TUBE WITH IMAGING [facility] PROTHROMBIN TIME / INR 2020-04-16 16:07:00 Rosaura Pena [facility] CBC WITH DIFF 2020-04-16 10:07:00 [facility] 2020-04-16 10:07:[address] [facility] MAGNESIUM 2020-04-16 10:07:[address] [facility] BASIC METABOLIC PANEL (NA, 2020-04-16 10:07:00 Yosvany Herndon [facility] K, CL, CO2, GLUCOSE, BUN, [facility] CREATININE, CA) CT ABDOMEN PELVIS W 2020-04-16 07:02:21 [facility] WITH [facility]FF 2020-04-15 10:02:[address] [facility] PHOSPHORUS 2020-04-15 10:02:[address] [facility] MAGNESIUM 2020-04-15 10:02:[address] [facility] BASIC METABOLIC PANEL (NA, 2020-04-15 10:02:00 Yosvany Herndon [facility] K, CL, CO2, GLUCOSE, BUN, Medica l Branch CREATININE, CA) CBC WITH DIFF 2020-04-14 10:26:[address] [facility] PHOSPHORUS 2020-04-14 10:26:[address] [facility] MAGNESIUM 2020-04-14 10:26:[address] [facility] BASIC METABOLIC PANEL (NA, 2020-04-14 10:26:00 Katrina Yosvany [facility] K, CL, CO2, GLUCOSE, BUN, Medica l Branch CREATININE, CA) BASIC METABOLIC PANEL (NA, 2020-04-13 23:53:00 Grant Santana i, [facility] K, CL, CO2, GLUCOSE, BUN, Danny Medica l Branch CREATININE, CA) CBC WITHOUT DIFF 2020-04-13 23:53:00 Grant Cheema [facility] IR DRAINAGE BY CATHETER 2020-04-13 20:35:[address] [facility] PERITONEAL OR [facility] RETROPERITONEAL BODY FLUID 2020-04-13 20:05:00 Neris Grier [facility] CULTURE(AEROBIC/ANAEROBIC) [facility] TOTAL BODY FLUID 2020-04-13 20:05:00 Grant Cheema, [facility] GLUCOSE BODY FLUID 2020-04-13 20:05:00 [facility] T.PROTEIN BODY FLUID 2020-04-13 20:05:00 Grant Cheema, [facility] BODY FLUID DIRECT COUNT 2020-04-13 20:05:00 Grant Cheema [facility] CBC WITH DIFF 2020-04-13 10:44:[address] [facility] PHOSPHORUS 2020-04-13 10:44:00 Carola, [facility] MAGNESIUM 2020-04-13 10:44:[address] [facility] BASIC METABOLIC PANEL (NA, 2020-04-13 10:44:00 Yosvany Herndon [facility] K, CL, CO2, GLUCOSE, BUN, Medica l Branch CREATININE, CA) CT ABDOMEN PELVIS W 2020-04-12 21:23:19 [facility] 2020-04-12 20:43:00 Becky [facility] URINE CULTURE 2020-04-12 20:43:00 Becky [facility] BLOOD CULTURE WORKUP 2020-04-12 18:51:00 [facility]LO[facility] 2020-04-12 18:51:00 Rosaura Pena [facility] PATHOGENS DNA [facility] PROBE-ANAEROBIC BLOOD CULTURE SCREEN 2020-04-12 18:51:00 Becky [facility] BLOOD CULTURE SCREEN 2020-04-12 18:50:00 [facility] CBC WITH DIFF 2020-04-12 08:46:[address] [facility] PHOSPHORUS 2020-04-12 08:46:[address] [facility] MAGNESIUM 2020-04-12 08:46:[address] [facility] BASIC METABOLIC PANEL (NA, 2020-04-12 08:46:00 Yosvany Herndon [facility] K, CL, CO2, GLUCOSE, BUN, Medica l Branch CREATININE, CA) CBC WITH DIFF 2020-04-11 08:54:[address] [facility] PHOSPHORUS 2020-04-11 08:54:[address] [facility] MAGNESIUM 2020-04-11 08:54:[address] [facility] BASIC METABOLIC PANEL (NA, 2020-04-11 08:54:00 Yosvany Herndon [facility] K, CL, CO2, GLUCOSE, BUN, Medica l Branch CREATININE, CA) CBC WITH DIFF 2020-04-10 09:49:[address] [facility] PHOSPHORUS 2020-04-10 09:49:[address] [facility] MAGNESIUM 2020-04-10 09:49:[address] [facility] XR CHEST 1 VW 2020-04-09 11:27:00 [facility] 2020-04-09 09:07:[address] [facility] PHOSPHORUS 2020-04-09 09:07:[address] [facility] MAGNESIUM 2020-04-09 09:07:00 [facility] FUN[facility] PANEL 2020-04-09 09:07:00 [id number] (ALB,T.PRO,[facility] T,BU/BC,ALT,AST,ALK PHOS) BASIC METABOLIC PANEL (NA, 2020-04-09 09:07:00 [facility] K, CL, CO2, GLUCOSE, BUN, Medica l Branch CREATININE, CA) AC PANEL 20 + LACTIC ACID 2020-04-08 21:11:[address] [facility] POCT GLUCOSE (AUTOMATED) 2020-04-08 12:27:00 Bia Pedro [facility] AC PANEL 21 + LACTIC ACID 2020-04-08 09:34:00 Bigg Lawton [facility] POCT GLUCOSE (AUTOMATED) 2020-04-08 09:33:00 Bia Pedro Uni [facility] CBC WITH DIFF 2020-04-08 09:26:[address] [facility] MAGNESIUM 2020-04-08 09:26:00 [facility] BASIC METABOLIC PANEL (NA, 2020-04-08 09:26:00 Yosvany Herndon [facility] K, CL, CO2, GLUCOSE, BUN, Medica l Branch CREATININE, CA) POCT GLUCOSE (AUTOMATED) 2020-04-08 04:24:00 Phatak, Bia [facility] POCT GLUCOSE (AUTOMATED) 2020-04-08 00:36:00 Phatak, Bia [facility] POCT GLUCOSE (AUTOMATED) 2020-04-07 21:24:00 Phatak, Bia Uni [facility] POCT GLUCOSE (AUTOMATED) 2020-04-07 16:49:00 Mayela, Bia Uni [facility] AC PANEL 20 + LACTIC ACID 2020-04-07 14:14:00 Yosvany Herndon [facility] LACTIC ACID WHOLE BLOOD 2020-04-07 13:53:00 Grant Cheema [facility] POCT GLUCOSE (AUTOMATED) 2020-04-07 12:50:00 Griffin Pedroa [facility] AC PANEL 20 + LACTIC ACID 2020-04-07 11:16:[address] [facility] MAGNESIUM 2020-04-07 08:48:[address] [facility] BASIC METABOLIC PANEL (NA, 2020-04-07 08:48:00 Yosvany Herndon [facility] K, CL, CO2, GLUCOSE, BUN, Medica l Branch CREATININE, CA) CBC WITH DIFF 2020-04-07 08:48:[address] [facility] XR CHEST 1 VW 2020-04-07 08:10:00 Rosaura Pena [facility] POCT GLUCOSE (AUTOMATED) 2020-04-07 04:36:00 Griffin Pedroa Uni [facility] AC PANEL 21 + LACTIC ACID 2020-04-07 02:05:[address] [facility] MRSA / MSSA SCREEN BY PCR, 2020-04-07 02:05:[address] [facility] 2020-04-07 02:05:00 Grant Cheema Uni [facility] POCT GLUCOSE (AUTOMATED) 2020-04-07 00:37:00 PhaBia morgan [facility] HCV ANTIBODY 2020-04-06 23:44:00 Grant Cheema [facility] POCT GLUCOSE (AUTOMATED) 2020-04-06 23:43:00 Bia Pedro [facility] HIV 1/2 AG-AB WITH REFLEX 2020-04-06 23:30:00 Grant Cheema [facility] POCT GLUCOSE (AUTOMATED) 2020-04-06 22:14:00 Bia Pedro [facility] ECHO ROUTINE W/DOPPLER 2020-04-06 20:25:55 Katrina [facility] PROTHROMBIN TIME / INR 2020-04-06 19:00:00 Rosaura Pena [facility] ACTIVATED PARTIAL THRMPLAS 2020-04-06 19:00:00 Becky [facility] MAGNESIUM 2020-04-06 19:00:00 Becky [facility] BASIC METABOLIC PANEL (NA, 2020-04-06 [facility]:00[facility], CO2, GLUCOSE, BUN, [facility] CREATININE, CA) COMP. METABOLIC PANEL 2020-04-06 19:00:00 Yosvany Herndon [facility] ([id number]) [facility] CBC WITH DIFF 2020-04-06 19:00:[address] [facility] AC PANEL 21 + LACTIC ACID 2020-04-06 18:59:00 Simi Dennis [facility] ABG+COOX+NA+K+GLU+CA2+ 2020-04-06 16:06:00 [facility]ia [facility] INTUBATION 2020-04-06 16:04:59 Ana Syed [facility] XR CHEST 1 VW 2020-04-06 15:43:[address] [facility] SURGICAL PATHOLOGY EXAM 2020-04-06 15:12:00 Juventino Mccabe [facility] CENTRAL LINE 2020-04-06 14:52:37 Cynthia Herring [facility] E [facility] ARTERIAL LINE 2020-04-06 14:51:44 Ana Syed [facility] ASPIRATE OR ABSCESS 2020-04-06 14:50:29 Person, Juventino [facility] CULTURE(AEROBIC/ANAEROBIC) [facility] [employer] CULTURE 2020-04-06 14:50:29 Person, [facility] [address] [facility] FUNGUS (ROUTINE) CULTURE 2020-04-06 14:50:29 Person, Juventino [facility] ABG+COOX+NA+K+GLU+CA2+ 2020-04-06 14:46:00 Bia Pedro [facility] HB ABO GROUPING 2020-04-06 14:39:00 Dana Sampson [facility] EXPLORATORY LAPAROTOMY 2020-04-06 13:51:00 Person, [facility] URINE CULTURE 2020-04-06 13:48:00 Grant Cheema [facility] XR KUB 2020-04-06 13:34:22 Grant Cheema[facility] XR CHEST 1 VW 2020-04-06 13:34:22 Grant Cheema [facility] MAGNESIUM 2020-04-06 11:47:00 Becky [facility] BASIC METABOLIC PANEL (NA, 2020-04-06 11:47:00 Becky [facility] K, CL, CO2, GLUCOSE, BUN, [facility] CREATININE, CA) CBC WITH DIFF 2020-04-06 11:47:00 Becky [facility] XR KUB 2020-04-05 21:34:47 Grant Cheema [facility] XR KUB 2020-04-05 19:41:00 Grant Cheema [facility] MAGNESIUM 2020-04-05 09:44:00 [facility] BASIC METABOLIC PANEL (NA, 2020-04-05 09:44:00 Becky [facility] K, CL, CO2, GLUCOSE, BUN, Cathryn [facility] CREATININE, CA) CBC WITH DIFF 2020-04-05 09:44:00 Becky [facility] MAGNESIUM 2020-04-04 10:09:00 Becky [facility] BASIC METABOLIC PANEL (NA, 2020-04-04 10:09:00 Becky [facility] K, CL, CO2, GLUCOSE, BUN, [facility] CREATININE, CA) CBC WITH DIFF 2020-04-04 10:09:00 Becky [facility] SURGICAL PATHOLOGY EXAM 2020-04-03 20:13:00 Mayela [facility] LAPAROSCOPIC COLECTOMY 2020-04-03 15:35:[address] [facility] COLONOSCOPY 2020-04-03 15:35:00 Phacathy [facility] COLECTOMY 2020-04-03 15:35:00 Phataoctavia [facility] MAGNESIUM 2020-04-03 09:20:00 Becky [facility] BASIC METABOLIC PANEL (NA, 2020-04-03 09:20:00 Becky [facility] K, CL, CO2, GLUCOSE, BUN, [facility] CREATININE, CA) CBC WITH DIFF 2020-04-03 09:20:00 Becky [facility] HB ABO GROUPING 2020-04-02 22:45:00 Hugo Alfaro [facility] MAGNESIUM 2020-04-02 10:22:00 Becky [facility] BASIC METABOLIC PANEL (NA, 2020-04-02 10:22:00 Becky [facility] K, CL, CO2, GLUCOSE, BUN, Cath[facility] CREATININE, CA) CBC WITH DIFF 2020-04-02 10:22:00 Becky [facility] COVID-19 (ID NOW RAPID 2020-04-01 23:02:00 Rosaura Pena Uni [facility] TESTING) [facility] URINALYSIS 2020-03-31 11:25:00 Alex Lopez [facility] CT ABDOMEN PELVIS W 2020-03-31 00:17:06 Alex Lopez [facility] CONTRAST [facility] Branch XR CHEST 1 VW 2020-03-30 22:43:49 Colette Lageri [facility] EKG-12 LEAD 2020-03-30 22:14:24 Doctor Unanela, [facility] PROTHROMBIN TIME / INR 2020-03-30 22:05:00 Alex Lopez [facility] ACTIVATED PARTIAL THRMPLAS 2020-03-30 22:05:00 Alex Lopez [facility] N-TERMINAL PRO-BNP 2020-03-30 22:05:00 Alex Lopez [facility] LIPASE 2020-03-30 22:05:00 Alex Lopez [facility] TROPONIN I 2020-03-30 22:05:00 Colette Lageri [facility] HEPATIC FUNCTION PANEL 2020-03-30 22:05:00 Alex Lopez [facility] ([id number]) (ALB,T.PRO,BILI [facility] T,BU/BC,ALT,AST,ALK PHOS) BASIC METABOLIC PANEL (NA, 2020-03-30 22:05:00 Alex Lopez [facility] K, CL, CO2, GLUCOSE, BUN, Medica l Branch CREATININE, CA) CBC WITH DIFF 2020-03-30 22:05:00 Alex Lopez [facility] EKG-12 LEAD 2020-03-30 22:01:44 Colette Lageri [facility] HOSPITAL ADMISSION 2020-03-30 05:01:00 Doctor Unassigned, [facility] Name Medical Branch MAGNESIUM 2020-03-26 09:57:00 Simin [facility] BASIC METABOLIC PANEL (NA, 2020-03-26 09:57:00 Simin, [facility] K, CL, CO2, GLUCOSE, BUN, Medica l Branch CREATININE, CA) CBC WITH DIFF 2020-03-26 09:57:00 Simin [facility] LACTIC ACID WHOLE BLOOD 2020-03-26 04:09:[address] [facility] COVID-19 (ID NOW RAPID 2020-03-26 02:01:00 Bernardo Donnelly [facility] TESTING) Medical [place] CT ABDOMEN PELVIS W 2020-03-26 01:17:18 Andrzej [facility] CONTRAST [facility] PHOSPHORUS 2020-03-26 00:39:00 Simin [facility] MAGNESIUM 2020-03-26 00:39:00 Simin [facility] HEPATIC FUNCTION PANEL 2020-03-26 00:39:00 Bernardo Donnelly [facility] ([id number]) (ALB,T.PRO,BILI [facility] T,BU/BC,ALT,AST,ALK PHOS) BASIC METABOLIC PANEL (NA, 2020-03-26 00:39:00 Bernardo Donnelly [facility] K, CL, CO2, GLUCOSE, BUN, Medica l Branch CREATININE, CA) CBC WITH DIFF 2020-03-26 00:39:00 Andrzej [facility] EXTRA TUBE LT. BLUE 2020-03-26 00:39:00 Bernardo Donnelly [facility] HOSPITAL ADMISSION 2020-03-25 05:01:00 Doctor Unassigned, [facility] [place] [facility] [place] PROTHROMBIN TIME / INR 2020-03-03 04:27:00 Ori Persaud [facility] ACTIVATED PARTIAL THRMPLAS 2020-03-03 04:27:00 Zahraa Persaud se [facility] XR ABDOMEN ACUTE SERIES 2020-03-03 02:15:00 Sabi Begum [facility] PHOSPHORUS 2020-03-03 01:22:00 Ori Persaud [facility] MAGNESIUM 2020-03-03 01:22:00 Ori Persaud [facility] HEPATIC FUNCTION PANEL 2020-03-03 01:22:00 Sabi Begum [facility] ([id number]) (ALB,T.PRO,BILI Medical Branch T,BU/BC,ALT,AST,ALK PHOS) BASIC METABOLIC PANEL (NA, 2020-03-03 01:22:00 Begum, [facility] K, CL, CO2, GLUCOSE, BUN, Medica l Branch CREATININE, CA) CBC WITH DIFFERENTIAL 2020-03-03 01:22:00 Sabi Begum [facility] URINALYSIS 2020-03-03 01:22:[address] [facility] LACTIC ACID WHOLE BLOOD 2020-03-03 01:22:00 Shy [facility] COVID-19 (ID NOW RAPID 2020-03-03 01:22:00 Begum, [facility] TESTING) Medical Branch GALV/CLC ONLY - URINE DRUG 2020-02-27 20:02:00 [facility] (IMMUNOASSAY) - [facility] COMPREHENSIVE DRUG SCREEN FREE T4 2020-02-27 17:48:00 [facility] THYROID STIMULATING 2020-02-27 17:48:00 [facility] FREE T3 2020-02-27 17:48:00 [facility] CT ABDOMEN PELVIS W 2020-02-26 18:27:28 Alondra Fay [facility] CONTRAST [facility] COVID-19 (ID NOW RAPID 2020-02-26 06:41:00 Shy [facility] TESTING) Medical Branch XR ABDOMEN ACUTE SERIES 2020-02-26 04:48:30 Shy [facility] Branch LIPASE 2020-02-26 03:35:[address] [facility] HEPATIC FUNCTION PANEL 2020-02-26 03:35:00 Shy [facility] ([id number]) (ALB,T.PRO,BILI Medical Branch T,BU/BC,ALT,AST,ALK PHOS) BASIC METABOLIC PANEL (NA, 2020-02-26 03:35:00 Sabi Begum [facility] K, CL, CO2, GLUCOSE, BUN, Medica l Branch CREATININE, CA) CBC WITH DIFFERENTIAL 2020-02-26 03:35:00 Shy [facility] LACTIC ACID WHOLE BLOOD 2020-02-26 03:35:00 Shy [facility] EXTRA TUBE LT. BLUE 2020-02-26 03:35:00 Sabi Begum [facility] MAGNESIUM 2020-02-03 16:38:00 Simin [facility] BASIC METABOLIC PANEL (NA, 2020-02-03 16:38:00 Simin, [facility] K, CL, CO2, GLUCOSE, BUN, Medica l Branch CREATININE, CA) XR KUB 2020-01-31 16:59:00 Helene Griffin [facility] BASIC METABOLIC PANEL (NA, 2020-01-31 06:15:00 Kirill Henson [facility] K, CL, CO2, GLUCOSE, BUN, Medica l Branch CREATININE, CA) CBC WITH DIFFERENTIAL 2020-01-31 06:15:00 Kirill Henson [facility] BASIC METABOLIC PANEL (NA, 2020-01-29 10:06:00 [facility] K, CL, CO2, GLUCOSE, BUN, Medica l [place] CREATININE, CA) CBC WITH DIFFERENTIAL 2020-01-29 10:06:00 Judith Ingram [facility] COVID-19 (PCR MOLECULAR 2020-01-29 03:56:00 Liz [facility] [place] TESTING) Medical Branch LACTIC ACID WHOLE BLOOD 2020-01-29 03:55:00 Bernardo Donnelly [facility] EXTRA TUBE LAV 2020-01-29 03:55:00 Liz [facility] EXTRA TUBE LT. BLUE 2020-01-29 03:55:00 Liz [facility] EXTRA TUBE LT. GREEN 2020-01-29 03:55:00 Liz [facility] URINALYSIS 2020-01-29 01:35:00 Silvia Jurado I [facility] COVID-19 (ID NOW RAPID 2020-01-29 01:32:00 Bernardo Donnelly [facility] TESTING) Medical Branch CT ABDOMEN PELVIS W 2020-01-28 23:53:23 JuradoSilvia rodriguez I [facility] CONTRAST [facility] Branch LIPASE 2020-01-28 23:19:00 [facility] HEPATIC FUNCTION PANEL 2020-01-28 23:19:00 JuradoSilvia [facility] ([id number]) (ALB,T.PRO,BILI Medical Branch T,BU/BC,ALT,AST,ALK PHOS) BASIC METABOLIC PANEL (NA, 2020-01-28 23:19:00 JuradoSondra [facility] K, CL, CO2, GLUCOSE, BUN, Medica l Branch CREATININE, CA) CBC WITH DIFFERENTIAL 2020-01-28 23:19:00 JuradoSilvia [facility] HOSPITAL ADMISSION 2020-01-28 05:01:00 Doctor Unassigned, [facility] [place] Medical [facility] BASIC METABOLIC PANEL (NA, 2020-01-26 18:06:00 Simin [facility] K, CL, CO2, GLUCOSE, BUN, Medica l Branch CREATININE, CA) MAGNESIUM 2020-01-26 08:17:00 Liz [facility] XR KUB 2020-01-26 06:00:00 Sindhu [facility] Medical Branch PHOSPHORUS 2020-01-25 09:43:00 Liz [facility] COVID-19 (ID NOW RAPID 2020-01-25 04:31:00 Shy [facility] TESTING) [facility] [place] LACTIC ACID WHOLE BLOOD 2020-01-25 04:27:00 Shy [facility] CT ABDOMEN PELVIS W 2020-01-25 02:15:22 Shy [facility] CONTRAST [facility] Branch URINALYSIS 2020-01-25 01:05:[address] [facility] LIPASE 2020-01-25 00:42:[address] [facility] HEPATIC FUNCTION PANEL 2020-01-25 00:42:00 Shy [facility] ([id number]) (ALB,T.PRO,BILI Medical Branch T,BU/BC,ALT,AST,ALK PHOS) BASIC METABOLIC PANEL (NA, 2020-01-25 00:42:00 Sabi Begum [facility] K, CL, CO2, GLUCOSE, BUN, Medica l Branch CREATININE, CA) CBC WITH DIFFERENTIAL 2020-01-25 00:42:00 Sabi Begum [facility] [id number] 2020-01-09 00:00:00 DARSU.01 [facility] [place] EXTERNAL PROVIDER RECORDS 2019-12-28 05:01:00 Doctor Unassigned, [facility] [place] Medical Branch Plan of Care Planned Activity Planned Date Details Comments Source Future Scheduled 2029-03-23 Screening for malignant [facility] 00:00:00 neoplasm of colon Medical Ce nter (procedure) [code = 961898986] Future Scheduled 2029-03-23 Screening for malignant [facility] Test 00:00:00 neoplasm of colon Medical Ce nter (procedure) [code = 049514481] Future Scheduled 2029-03-23 Screening for malignant [facility] Test 00:00:00 neoplasm of colon Medical Ce nter (procedure) [code = 847080321] Future Scheduled 2029-03-23 Screening for malignant [facility] Test 00:00:00 neoplasm of colon Medical Ce nter (procedure) [code = 041670525] Future Scheduled 2029-03-23 Screening for malignant [facility] Test 00:00:00 neoplasm of colon Medical Ce nter (procedure) [code = 702903935] Future Scheduled 2029-03-23 Screening for malignant [facility] Test 00:00:00 neoplasm of colon Medical Ce nter (procedure) [code = 023036683] Future Scheduled 2029-03-23 Screening for malignant [facility] Test 00:00:00 neoplasm of colon Medical Ce nter (procedure) [code = 811387685] Future Scheduled 2022-05-24 IMM Influenza Seasonal H [...] [facility]ukes Test 00:00:00 2) [code = SHINGLES [facility] VACCINES (1 of 2)] Future Scheduled 2020-02-14 Screening for malignant [facility] Test 00:00:00 neoplasm of colon (procedure) [code = 495671387] Future Scheduled 2020-02-14 Screening for malignant [facility] Test 00:00:00 neoplasm of colon (procedure) [code = 335238812] Future Scheduled 2020-02-14 SHINGLES VACCINES ([address] [facility] Test 00:00:00 2) [code = SHINGLES [facility] VACCINES (1 of 2)] Future Scheduled 2020-02-14 SHINGLES VACCINES ([address] [facility] Test 00:00:00 2) [code = SHINGLES [facility] VACCINES (1 of 2)] Future Scheduled 2005 Lipid panel (procedure) [facility] 00:00:00 [code = 96427831] Medical Ce nter Future Scheduled 2005 Lipid panel (procedure) [facility] Test 00:00:00 [code = 56879472] Medical Ce nter Future Scheduled 2005 Lipid panel (procedure) [facility] Test 00:00:00 [code = 86091358] Medical Ce nter Future Scheduled 2005 Lipid panel (procedure) [facility] 00:00:00 [code = 63313127] Medical Ce nter Future Scheduled 1989 DTAP/TDAP/TD [...] ter VACCINE (#1)] Future Scheduled 1970 COVID-19 VACCINE (#1) [facility] 00:00:00 [code = COVID-[address] VACCINE (#1)] Future Scheduled 1970 CT Colonography (combo) [facility] 00:00:00 [code = CT Colonography [facility] (combo)] Future Scheduled 1970 Screening for malignant [facility] Test 00:00:00 neoplasm of colon Medical Ce nter (procedure) [code = 792608111] Future Scheduled 1970 Screening for malignant [facility] Test 00:00:00 neoplasm of colon Medical Ce nter (procedure) [code = 265578282] Future Scheduled 1970 Sigmoidoscopy [code = [facility] Sigm[facility]oscopy] Medical Cente r Future Scheduled 1970 Fluoride Varnish [facility] = Fluoride Varnish] Future Scheduled 1970 Fluoride Varnish [facility]code [facility] 00:00:00 = Fluoride Varnish] Future Scheduled 1970 Screening for malignant [facility] Test 00:00:00 neoplasm of colon Medical Ce nter (procedure) [code = 543913846] Future Scheduled 1970 Screening for malignant [facility] Test 00:00:00 neoplasm of colon Medical Ce nter (procedure) [code = 684842973] Future Scheduled 1970 Sigmoidoscopy [code = [facility] Sigmoidoscopy] Medical Cente r Future Scheduled 1970 CT Colonography (combo) [facility] 00:00:00 [code = CT Colonography [facility] (combo)] Future Scheduled 1970 Screening for malignant [facility] Test 00:00:00 neoplasm of colon Medical Ce nter (procedure) [code = 207489815] Future Scheduled 1970 Screening for malignant [facility] Test 00:00:00 neoplasm of colon Medical Ce nter (procedure) [code = 249890907] Future Scheduled 1970 Sigmoidoscopy [code = [facility] Sigmoidoscopy] Medical Cente r Future Scheduled 1970 CT Colonography (combo) [facility] Test 00:00:00 [code = CT Colonography [facility]i m[facility] Center (combo)] Encounters Start End Encounter Admission Attending Care Care Encounter Source Date/Time Date/Time Type Type Clinicians Facility Department ID 2021-06-25 Emergency [facility] [id number] Univers 05:25:[address] [facility] 2021-06-25 Emergency [facility] [id number] Univers 01:41:[address] [facility] 2021-06-24 Emergency [facility] [id number] Univers 22:38:[address] [facility] 2021-06-22 Emergency [facility] [id number] Univers 21:40:[address] [facility] 2021-06-22 Emergency [facility] [id number] Univers 13:55:[address] [facility] 2021-06-22 Emergency [facility] [id number] Univers 05:54:[address] [facility] 2021-06-21 Emergency [facility] [id number] Univers 22:33:[address] [facility] 2021-06-21 Emergency [facility] [id number] Univers 22:33:[address] [facility] 2021-06-21 Emergency [facility] [id number] Univers 22:22:[address] [facility] 2021-06-21 Emergency [facility] [id number] Univers 20:04:[address] [facility] 2021-06-21 Emergency [facility] [id number] Univers 19:53:[address] [facility] 2021-06-21 Emergency [facility] [id number] Univers 19:37:[address] [facility] 2021-06-21 Emergency [facility] [id number] Univers 19:36:[address] [facility] 2021-06-21 Emergency [facility] [id number] Univers 17:11:[address] [facility] 2021-06-21 Emergency [facility] [id number] Univers 16:44:[address] [facility] 2021-06-21 Emergency [facility] [id number] Univers 11:19:[address] [facility] 2021-06-21 Emergency [facility] [id number] Univers 10:16:[address] [facility] 2021-06-21 Emergency [facility] [id number] Univers 06:08:[address] [facility] 2021-06-21 Emergency [facility] [id number] Univers 04:43:[address] [facility] 2021-06-21 Emergency [facility] [id number] Univers 04:42:[address] [facility] 2021-06-20 Emergency X YURIY, [facility] PAKO [id number] Univers 18:31:[address] [facility] 2020-02-23 Inpatient HCAPM LENNY [id number] [facility] 18:42:[address] [facility] 2020-02-17 Inpatient EM Avtar, HCAPM MAS [id number] [facility] 00:22:[address] [facility] 2020-01-05 Inpatient UR Perea, HCAPM MEDI.01 [id number] [facility] 20:23:00 Mark 40 [facility] 2019-12-13 Inpatient HCAMN JULIA [id number] [facility] 17:52:00 47 [facility] 2022-04-14 2022-04-14 Transition MELANIE Valdes 1.2.840.114 [id number] Univers 00:00:00 00:00:00 of Care Miryam TR[place] 350.1.13.10 [id number] [address] 2022-04-09 2022-04-10 Emergency X [facility] ERT [id number] Univers 20:38:00 00:14:[address] [facility] 2022-04-09 2022-04-10 Emergency [facility] [id number] Univers 20:38:00 00:14:00 Alvarez OROPEZA 350.1.13.10 ity of [place] [id number] [place] [id number] Branch 2022-04-09 2022-04-09 Transition MELANIE Valdes [id number] Univers 00:00:00 00:00:00 of Care Miryam TR[place]IDAD[place] 350.1.13.10 [id number] [address] Branch 2022-04-02 2022-04-08 Inpatient X [facility] URI [id number] Univers 11:42:00 12:30:[address] [facility] 2022-04-02 2022-04-08 [facility] Rekha Sheehan [facility] 1.2.840.11 [id number] Univers 11:42:00 12:30:00 Encounter Juventino Thomas [facility] 350.1.13.10 ity of Di[place] 4.2.7.2.686 [place] [id number] ([facility]) 2022-03-29 2022-03-29 Emergency EM Bridgett, HCACL AERS [id number] [facility] 14:26:00 16:45:00 Sabi Adams [facility] 2022-03-29 2022-03-29 Emergency EM Bridgett, HCACL HCACL [id number] [facility] 14:26:00 16:45:00 Sabi [id number] [facility] 2022-03-25 2022-03-26 Inpatient E RICHARD [facility] MED [id number] BL 13:38:00 10:16:00 , YESSI 2022-03-15 2022-03-18 Emergency E RADHA [facility] MED [id number] [facility] 13:36:00 18:59:00 JULIO 2022-03-13 2022-03-13 Emergency [facility] [id number] Lynne 15:33:00 20:25:00 [facility] 2022-03-13 2022-03-13 Outpatient RONALD, [facility] [id number] [place] 00:00:00 00:00:00 [facility] 2022-03-06 2022-03-09 [facility] Aryan Tello [facility] [id number] [facility] 12:16:00 12:55:00 Encounter Norma Montalvo Fang-Ying M edical [facility] Rizvi, Syed Ahsan Mujtaba 2022-03-06 2022-03-09 Inpatient ER LEONIDAS [facility] Emergency [id number] SLE 12:16:00 12:55:00 2022-03-06 2022-03-09 [facility] [id number] 12:16:00 12:55:00 Encounter Norma Montalvo, Pao Ramos [place] Anya Leonidas Bain Colin 2022-03-06 2022-03-06 Outpatient [facility] [id number] [facility] 00:00:00 23:59:00 Colleg e [facility] Medicin e 2022-03-06 2022-03-06 Orders [facility] [id number] 00:00:00 00:00:00 Only [facility] 2022-03-06 2022-03-06 Travel [facility] [id number] [facility] 00:[facility] 00:00:00 [facility] 2022-03-06 2022-03-06 Orders [facility] [id number] 00:00:00 00:00:00 Only [facility] 2022-03-06 2022-03-06 Travel [facility] [id number] [facility] 00:[facility]00 00:00:00 [facility] 2022-02-18 2022-02-20 Emergency Jamal Carbajald [facility] [id number] Lynne 13:58:00 11:55:00 [facility] Jackie [facility] Fannie Chavez 2022-02-18 2022-02-18 Emergency [facility] [id number] [place] 15:19:05 15:23:18 [facility] 2022-02-18 2022-02-18 Outpatient Garo [facility] [id number] [place]ne 13:58:00 13:58:00 [facility] 2022-02-18 2022-02-18 Outpatient DENIZ [facility] [id number] [place] 00:00:00 00:00:00 , OSCAR boss 2022-02-07 2022-02-11 [facility] [id number] Lynne 13:40:00 13:22:00 Encounter Daily Islas [facility] Teresa Alves 2022-02-07 2022-02-07 Outpatient 1 DAILY ISLAS [facility] [id number] Lynne 13:40:00 13:40:00 [facility] 2022-01-30 2022-01-30 Emergency SEAN Pacheco [facility] [id number] [facility] 17:02:00 18:29:00 Dwain 53 [facility] 2022-01-30 2022-01-30 Emergency EM Tara [facility] [id number] [facility] 17:02:00 18:29:00 Dwain [id number] [facility] 2022-01-22 2022-01-22 Emergency [facility] [id number] Lynne 17:24:00 20:39:00 [facility] 2022-01-16 2022-01-21 Emergency Raymon Martin [facility] [id number] Lynne 11:04:00 18:08:00 Karin Bassett [facility] Sushil Craig Parth P 2022-01-19 2022-01-19 Outpatient [facility] [id number] Lynne 12:34:08 13:29:31 [facility] 2022-01-16 2022-01-16 Outpatient [facility] [id number] [place] 19:42:28 20:01:28 [facility] 2022-01-16 2022-01-16 Outpatient 1 DANYELLE [facility] [id number] Lynne 11:04:00 11:04:00 KARIN boss 2022-01-10 2022-01-11 Emergency Bert Reed [facility] [id number] Lynne 10:58:00 11:20:00 Helene Anderson [facility] Merissa Richards 2022-01-10 2022-01-10 Outpatient 1 JUSTIN [facility] [id number] [place]ne 10:58:00 10:58:00 HELENE [facility] 2022-01-08 2022-01-09 Emergency [facility] [id number] Lynne 17:57:00 02:50:00 [facility] 2022-01-08 2022-01-08 Emergency [facility] [id number] Lynne 21:40:34 21:50:19 Health 2021-09-23 2021-09-23 Emergency EM Raffaele Levi HCACL AERS [id number] [facility] 19:35:00 21:10:00 74 [facility] 2021-09-13 2021-09-13 Emergency X RACHEL, [facility] ERT [id number] Univers 21:20:00 22:36:00 MICKEY ity [facility] 2021-09-13 2021-09-13 Emergency Harkey, [facility] [id number] Univers 21:20:00 22:36:00 Mickey Escoto HEALTH 350.1.13.10 it [place] [id number] [address] ([facility]) 2021-09-13 2021-09-13 Emergency EM Raffaele Levi HCACL AERS [id number] [facility] 14:57:00 16:37:00 06 [facility] 2021-09-12 2021-09-12 Emergency X MORRICAL, [facility] ERT [id number] Univers 14:25:00 17:51:00 [facility] 2021-09-12 2021-09-12 Emergency Morrical, TRAUMA 1.2.840.114 [id number] Univers 14:25:00 17:51:00 [facility] CENTER 350.1.13.10 [place] [id number] [address] 2021-09-12 2021-09-12 [facility] [id number] Univers 06:20:00 10:10:00 CONSTANTIN ity [facility] 2021-09-12 2021-09-12 Emergency Dalmedo, Alona TRAUMA 1.2.840 .114 [id number] Univers 06:20:00 10:10:00 Constantin Concepcion ROANOKE 350.1.13.10 [place] [id number] [address] 2021-09-08 2021-09-09 Emergency X YINA [facility] ERT [id number] Univers 23:01:00 01:30:[address] [facility] 2021-09-08 2021-09-09 Emergency Pacheco, TRAU[place] [id number] Univers 23:01:00 01:30:00 Sebastian Lopez ROAN[place]KE 350.1.13.10 [place] [id number] [facility] 014 Branch 2021-09-07 2021-09-07 Emergency X YINA, [facility] ERT [id number] Univers 19:24:00 23:44:[address] [facility] 2021-09-07 2021-09-07 Emergency Pacheco, TRAU[place] [id number] [id number] Univers 19:24:00 23:44:00 Sebastian [facility] 350.1.13.10 [place] [id number] [facility] 014 Branch 2021-09-06 2021-09-06 Emergency X YINA, [facility] ERT [id number] Univers 15:35:00 17:52:[address] [facility] 2021-09-06 2021-09-06 Emergency Pacheco, [place] [id number] Univers 15:35:00 17:52:00 Sebastian [facility] 350.1.13.10 [place] [id number] [facility] 014 Branch 2021-09-06 2021-09-06 Transition MELANIE Vallejo 1.2.840.114 [id number] Univers 00:00:00 00:00:00 of Care Emililaurel RECINOS 350.1.13.10 [place] [id number] [facility] 403 Branch 2021-08-30 2021-09-05 Inpatient X ERNSTCATHYBIA [facility] PAKO [id number] Univers 16:53:00 16:00:[address] [facility] 2021-08-30 2021-09-05 Gayatri Arroyo 1 .2.840.114 [id number] Univers 16:53:00 16:00:00 Encounter Sophia Andrea MAGGY 350.1 .13.10 ity of [facility] 4.2.7.2.686 [facility] [id number] Medical 097 Branch 2021-09-03 2021-09-03 Surgery [facility] MARGARITA 1.2.840.114 [id number] Univers 07:15:00 10:04:[address] MAG[address]13[address] [facility] 4.2.7.2.686 Javi as [id number] [facility] 103 Branch 2021-08-29 2021-08-29 Emergency X IBIKUNLE, [facility] ERT [id number] Univers 17:15:00 20:03:[address] [facility] 2021-08-29 2021-08-29 Emergency Ibikunle, TRAUMA 1.2.840.114 [id number] Univers 17:15:00 20:03:00 [facility] 350.1.13.10 [place] [id number] [facility] 014 Branch 2021-07-29 2021-08-05 Inpatient X [facility] PAKO [id number] Univers 20:15:00 07:43:[address] [facility] 2021-07-29 2021-08-05 Hospital Jonah Rees [id number] Univers 20:15:00 07:43:00 Encounter Karin Myers MAGGY 350.1.13.1 0 ity of [facility] [id number] [place] [id number] [facility] [address] 2021-07-29 2021-07-29 Transition MELANIE Vallejo 1.2.840.114 [id number] Univers 00:00:00 00:00:00 of Care Emili RECINOS 350.1.13.10 [place] [id number] [facility] [address] 2021-07-27 2021-07-27 Emergency EM Kateryna, HCAMN JULIA [id number] [facility] 10:15:00 12:36:00 Tarmars 17 [facility] 2021-07-23 2021-07-26 Inpatient X BIA PEDRO [facility] PAKO 1036 [id number] Univers 00:39:00 14:50:[address] [facility] 2021-07-23 2021-07-26 Hospital Sabi Schultz 1.2.840 .114 [id number] Univers 00:39:00 14:50:00 Encounter Bia Pedro 350.1.13.10 ity of HOSPITAL 4.2.7.2.686 Javi as [id number] [facility] [address] 2021-07-22 2021-07-22 Emergency EM Marcelina, [facility] [id number] [facility] 04:25:00 08:20:00 Tarsumi 74 [facility] 2021-06-27 2021-06-27 Emergency EM Bridgett, [facility] [id number] [facility] 15:31:00 17:37:00 Sabi Pollard [facility] 2021-06-25 2021-06-25 Orders Doctor BERNARDO 1.2.840.[id number] [place] [address] 00:00:00 00:00:00 Only Unassigned, MAGGY 350.1.13.10 ity of [place] [facility] 4.2.7.2.686 Javi as [id number] [facility] [address] 2021-05-31 2021-06-04 Emergency Willie Garrett [facility] 1.2.840.1 14 [id number] [facility] 17:10:00 16:38:00 Clementine Castellon [facility] 350.1.13.10 ity of Sabi Gann 4.2.7.2.686 [place] Tamika Lyle [phone] [address] ([facility]) 2021-05-20 2021-05-21 Emergency Bernardo Donnelly [facility] 1.2.840.114 [id number] Univers 14:29:00 17:10:00 Scott [facility] 350.1.13.10 it[place] [id number] [facility] [address] ([facility]) 2021-05-10 2021-05-10 Transition Melanie Vallejo 1.2.840.114 [id number] Univers 00:00:00 00:00:00 of Care Emili Recinos 350.1.13.10 [place] [id number] [facility] [address] 2021-05-07 2021-05-09 Hospital Alona Pérez [facility] 1.2.840.11 4 [id number] Univers 19:23:00 15:26:00 Encounter Diogo Keane [facility] 350.1.13. 10 ity of Abad Watson [place] 4.2.7.2.686 [place] [id number] [facility] [address] ([facility]) 2021-04-28 2021-05-01 Inpatient SEAN Leonard, [facility] [id number] [facility] 21:05:00 14:18:00 Adrianer 03 Cl [facility] 2020-09-26 2020-09-26 Emergency Jose, [facility] 1.2.983.396 [id number] Univers 16:56:00 23:00:00 Mariaelena Oropeza 350.1.13.10 i ty [place] [phone] [facility] [address] 2020-08-22 2020-08-24 Emergency Funmilayo Pinzon [facility] 1.2.8 40.114 [id number] Univers 15:31:00 14:20:00 SweeneyBart malik Health 350.1.13.10 ity of Ori Persaud [place] 4.2.7.2.686 [place] [id number] [facility] [address] ([facility]) 2020-07-09 2020-07-09 Emergency Henna [facility] 1.2.840.114 [id number] Univers 16:23:00 19:43:00 , Juan M Health 350.1.13.10 it[place] [phone] [facility] [address] ([facility]) 2020-06-15 2020-06-15 Patient Saira Goodman 1.2.840.114 [id number] Univers 00:00:00 00:00:00 Outreach E Recinos 350.1.13.10 i [place] [id number] [facility] [address] 2020-06-12 2020-06-12 Patient Saira Goodman 1.2.840.114 78 [id number] Univers 00:00:00 00:00:00 Outreach E Recinos 350.1.13.10 [place] [id number] [address] 2020-06-08 2020-06-08 Patient Melanie Emanuel 1.2.840.114 [id number] Univers 00:00:00 00:00:00 Outreach Mela Arvizu Recinos 350.1.13.10 [place] [id number] [address] 2020-06-07 2020-06-07 Patient Saria Goodman 1.2.840.114 78 [id number] Univers 00:00:00 00:00:00 Outreach E Recinos 350.1.13.10 i [place] [id number] [facility] [address] 2020-06-05 2020-06-05 Emergency Bishnu, [facility] 1.2.840.114 [id number] Univers 06:47:00 10:55:00 More Oropeza 350.1.13.10 ity of [place] [id number] [facility] [address] 2020-06-04 2020-06-04 Emergency Andrzej, [facility] 1.2.216.917 [id number] Univers 10:36:00 13:38:00 [facility]ly [facility] 350.1.13.10 it y [place] Lev[place] [phone] [facility] [address] ([facility]) 2020-06-04 2020-06-04 Patient Saira Goodman 1.2.840.114 78 [id number] Univers 00:00:00 00:00:00 Outreach E Recinos 350.1.13.10 [place] [id number] [address] 2020-06-04 2020-06-04 Patient Asia Emanueleddie 1.2.840.114 [id number] Univers 00:00:00 00:00:00 Outreach Mela Arvizu Recinos 350.1.13.10 [place] [id number] [address] 2020-06-01 2020-06-01 Transition Yoni Melanie 1.2.840.114 [id number] Univers 00:00:00 00:00:00 of Care Emili Recinos 350.1.13.10 [place] [id number] [address] 2020-05-22 2020-05-31 Hospital Leonard Lopezgeri Margarita 1.2.840.11 4 [id number] Univers 14:42:00 18:40:00 Encounter Bia Pedro Maggy 350.1.13.10 ity of Hospital 4.2.7.2.686 [place] [id number] [address] 2020-05-31 2020-05-31 Patient Saira Goodman Melanie 1.2.840.114 78 [id number] Univers 00:00:00 00:00:00 Outreach E Recinos 350.1.13.10 [place] [id number] [address] 2020-05-23 2020-05-23 Outpatient R [facility] [id number] -[id number] Univers 10:00:00 10:00:[id number] [facility] 2020-05-23 2020-05-23 Patient Saira Goodman Melanie 1.2.840.114 [id number] Univers 00:00:00 00:00:00 Outreach E Recinos 350.1.13.10 [place] [id number] [address] 2020-05-23 2020-05-23 Patient Saira Goodmaneddie 1.2.840.114 78 [id number] Univers 00:00:00 00:00:00 Outreach E Recinos 350.1.13.10 [place] [id number] [address] 2020-05-23 2020-05-23 Patient Melanie Emanuel 1.2.840.114 [id number] Univers 00:00:00 00:00:00 Outreach Mela Trinidady 350.1.13.10 [place] [id number] [address] 2020-05-21 2020-05-21 Emergency [facility] 1.2.488.463 [id number] Univers 20:52:00 23:41:00 Formerly [facility] 350.1.13.10 it y [place] [id number] [address] ([facility]) 2020-05-20 2020-05-20 Emergency Unknown, [place] 1.2.840.114 [id number] Univers 07:04:00 15:13:00 Attending CENTER 350.1.13.10 [place] [id number] [address] 2020-05-19 2020-05-20 Emergency [facility] 1.2.840.114 7 [id number] Univers 21:29:00 06:12:00 [facility] 350.1.13.10 it [place] [id number] [address] ([facility]) 2020-05-18 2020-05-18 Patient Saira Goodman 1.2.840.114 [id number] Univers 10:18:59 11:28:59 Outreach E Recinos 350.1.13.10 [place] [id number] [address] 2020-05-18 2020-05-18 Outpatient R [facility] [id number] -20 Univers 09:30:00 09:30:[id number] [facility] 2020-05-18 2020-05-18 Patient Melanie Emanuel 1.2.840.114 [id number] Univers 00:00:00 00:00:00 Outreach Mela Trinidady 350.1.13.10 [place] [id number] [address] 2020-05-17 2020-05-17 Outpatient R [facility] [id number] -[id number] Univers 10:00:00 10:00:[id number] [facility] 2020-05-17 2020-05-17 Patient Saira Goodman 1.2.840.114 [id number] Univers 00:00:00 00:00:00 Outreach Heidi Trinidady 350.1.13.10 [place] [id number] [address] 2020-05-17 2020-05-17 Patient Melanie Emanuel 1.2.840.114 [id number] Univers 00:00:00 00:00:00 Outreach Mela Trinidady 350.1.13.10 [place] [id number] [address] 2020-05-15 2020-05-15 Patient Melanie Emanuel 1.2.840.114 [id number] Univers 00:00:00 00:00:00 Outreach Mela Trinidady 350.1.13.10 [place] [id number] [address] 2020-05-14 2020-05-14 Transition Melanie Vallejo 1.2.840.114 [id number] Univers 00:00:00 00:00:00 of Care Emili Recinos 350.1.13.10 [place] [id number] [address] 2020-05-04 2020-05-12 Hospital Lora Hall 1.2. 840.114 [id number] Univers 21:09:00 14:03:00 Encounter Carol Ann Jason 350.1.13.10 ity of Hospital 4.2.7.2.686 [place]avi [place] [phone] [address] 2020-05-10 2020-05-10 Patient Saira Goodman 1.2.840.114 78 [id number] Univers 00:00:00 00:00:00 Outreach E Recinos 350.1.13.10 [place] [id number] [address] 2020-05-09 2020-05-09 Transition Melanie Vallejo 1.2.840.114 [id number] Univers 00:00:00 00:00:00 of Care Emili Recinos 350.1.13.10 [place] [id number] [address] 2020-05-08 2020-05-08 Patient Saira Goodman 1.2.840.114 78 [id number] Univers 00:00:00 00:00:00 Outreach E Recinos 350.1.13.10 [place] [id number] [address] 2020-05-02 2020-05-03 Emergency [facility] 1.2.796.704 [id number] Univers 23:37:00 01:53:00 Joel S Kent 350.1.13.10 ity of [place] Tob[place] [id number] [address] 2020-05-03 2020-05-03 Patient Saira Goodman 1.2.840.114 78 [id number] Univers 00:00:00 00:00:00 Outreach E Recinos 350.1.13.10 [place] [id number] [address] 2020-05-03 2020-05-03 Transition Melanie Vallejo 1.2.840.114 [id number] Univers 00:00:00 00:00:00 of Care Emili Recinos 350.1.13.10 [place] [id number] [address] 2020-03-30 2020-05-02 [facility] Alex Lopez 1.2.840.11 4 [id number] Univers 16:55:00 16:45:00 Encounter Diogo Keane [place] 350.1.13. 10 [facility] 4.2.7.2.686 [place] [id number] [facility] [address] 2020-04-06 2020-04-06 Anesthesia Dana Sampson 1.2.8 40.114 [id number] Univers 09:10:00 11:29:00 Cynthia Herring 350.1.1 3.10 ity of Hospital 4.2.7.2.686 [place] [phone] [facility] [address] 2020-03-29 2020-03-29 Transition Melanie Vallejo 1.2.840.114 [id number] Univers 00:00:00 00:00:00 of Care Emili Recinos 350.1.13.10 [place] [id number] [facility] [address] 2020-03-25 2020-03-28 [facility] AndrzejBernardo [facility] 1.2.840.114 [id number] Univers 19:12:00 18:43:00 Encounter Simin, [facility] 350.1.13.1 0 it[place] [id number] [facility] [address] ([facility]) 2020-03-07 2020-03-07 Transition Melanie Vallejo 1.2.840.114 [id number] Univers 00:00:00 00:00:00 of Care Emili Recinos 350.1.13.10 [place] [id number] [facility] [address] 2020-03-02 2020-03-05 [facility] Sabi Begum [facility] 1.2.840.11 4 [id number] Univers 19:53:34 17:23:00 Encounter Eliu [facility] 350.1.13.10 ity of Simin, Radheshyam [place] 4.2.7.2.686 [place] [id number] [facility] [address] ([facility]) 2020-02-29 2020-02-29 Transition Melanie Vallejo 1.2.840.114 [id number] Univers 00:00:00 00:00:00 of Care Emili Recinos 350.1.13.10 [place] [id number] [facility] [address] 2020-02-26 2020-02-27 Hospital Juventino Mccabe 1.2.840.11 4 [id number] Univers 04:55:41 19:20:00 Encounter Bia Pedro 350.1.13.10 ity of Hospital 4.2.7.2.686 Javi as [id number] [facility] [address] 2020-02-27 2020-02-27 Patient Saira Goodman Melanie 1.2.840.114 [id number] Univers 00:00:00 00:00:00 Outreach E Recinos 350.1.13.10 i [place] 215.3934384 [place] [address] [address] 2020-02-25 2020-02-26 Emergency Begum, [facility] 1.2.678.484 [id number] Univers 21:25:58 03:55:[address] [facility] 350.1.13.10 it y [place] [id number] [facility] [address] ([facility]) 2020-02-24 2020-02-24 Outpatient Perea, [facility] LAB[facility] [id number] [facility] 07:51:00 07:51:00 [facility] 2020-02-18 2020-02-18 Outpatient Avtar, [facility] LABO [id number] [facility] 00:26:00 00:26:00 Oladipo 05 [facility] 2020-02-07 2020-02-07 Transition Melanie Vallejo 1.2.840.114 [id number] Univers 00:00:00 00:00:00 of Care Emili Recinos 350.1.13.10 [place] 455.4249056 [address] 2020-02-07 2020-02-07 Transition Melanie Vallejo 1.2.840.114 [id number] 00:00:00 00:00:00 of Care Emili Recinos 350.1.13.10 [place] 4.2.7.2.686 [id number] 403 2020-01-28 2020-02-05 Inpatient X SIMIN [facility] [id number] Univers 18:12:56 15:12:00 RADHESHYAM ity [facility] 2020-01-28 2020-02-05 [facility] Bernardo Donnelly [facility] 1.2.840.114 [id number] Univers 18:12:56 15:12:00 Encounter Ahmed, [facility] 350.1.13.10 ity of Simin, Radheshyam [place] 4.2.7.2.686 [place] [id number] [facility] [address] ([facility]) 2020-01-28 2020-02-05 [facility] Bernardo Donnelly [facility] 1.2.840.114 [id number] 18:12:56 15:12:00 Encounter Ahmed, [facility] 350.1.13.10 Simin, Radheshyam [place] 4.2.7.2.686 [place] [id number] [place] [address] ([facility]) 2020-01-24 2020-01-26 Emergency Sabi Begum [facility] 1.2.840.1 14 [id number] Univers 18:46:34 19:35:00 Ahmed, [facility] 350.1.13.10 ity of Simin, Radheshyam [place] 4.2.7.2.686 [place] [id number] [facility] [address] ([facility]) 2020-01-24 2020-01-26 Outpatient X SIMIN [facility] URI [id number] Univers 18:46:34 19:35:00 RADHESHYAM ity [facility] 2020-01-24 2020-01-26 Emergency Sabi Begum [facility] 1.2.840.1 14 [id number] 18:46:34 19:35:00 Ahmed, [facility] 350.1.13.10 Simin, Radheshyam [place] 4.2.7.2.686 [place] [id number] [place] [address] ([facility]) 2020-01-05 2020-01-05 Outpatient JOE Perea OUTD [id number] [facility] 23:52:00 23:52:[address] 2019-12-28 2019-12-28 Orders Doctor BERNARDO 1.2.840.114 [id number] Univers 00:00:00 00:00:00 Only Unassigned, MAGGY 350.1.13.10 ity of [place] [facility] 4.2.7.2.686 Javi as [id number] [facility] [address] 2019-12-28 2019-12-28 Orders Doctor BERNARDO 1.2.840.114 [id number] 00:00:00 00:00:00 Only Unassigned, MAGGY 350.1.13.10 [place] [facility] 4.2.7.2.686 [id number] 009 2019-12-12 2019-12-12 Emergency [place], [place] 1.2.386.836 [id number] Univers 21:02:30 23:20:00 [facility] 350.1.13.10 i [place] [id number] [facility] [address] 2019-12-12 2019-12-12 Emergency [place]ova, TRAU[place] 1.2.825.624 [id number] 21:02:30 23:20:00 [facility] 350.1.13.10 4.2.7.2.686 [id number] 014 2017-11-02 2017-11-02 Emergency E [facility] MED [id number] [address] 08:33:00 08:33:00 [facility] 2017-08-05 2017-08-05 Outpatient [facility] [id number] [place] 00:00:00 00:00:00 Health 2017-07-28 2017-07-28 Outpatient [facility] [id number] [place] 00:00:00 00:00:00 Health 2017-06-24 2017-06-24 Outpatient [facility] [id number] [place] 00:00:00 00:00:00 [facility] 2017-06-22 2017-06-22 Emergency [facility] [id number] [place] 21:37:29 21:37:29 Health 2017-06-22 2017-06-22 Emergency [facility] [id number] [place] 21:06:00 21:06:00 Health 2017-06-22 2017-06-22 Outpatient [facility] [id number] [place] 10:02:31 10:02:31 Health 2017-06-09 2017-06-09 Outpatient [facility] [id number] [place] 00:00:00 00:00:00 Health 2017-06-09 2017-06-09 Outpatient [facility] [id number] [place] 00:00:00 00:00:00 [facility] 2017-05-08 2017-05-08 Emergency [facility] MED [id number] [place] 01:04:44 01:04:44 [facility] 2017-05-05 2017-05-05 Emergency E [facility] MED [id number] [address] 08:11:00 08:11:00 [facility] 2017-04-15 2017-04-15 Emergency E [facility] MED [id number] [address] 09:53:00 09:53:00 [facility] 2017-04-14 2017-04-14 Outpatient [facility] [id number] [place] 13:31:02 13:31:02 Health Results Test Description Test [...] 31.6 g/dL 31.2-35 RDW-SD (test code = 95235-5) 56.7 fL 38.5-51.6 H RDW-CV (test code = 788-0) 17.4 % 12.1-15.4 H PLT (test code = 777-3) See_Comment [Au tomated message] The system which ge nerated this result transmit dain reference range: 150 - 32 8 10*3/?L. The reference range was not used to interpret th is result as normal/abnormal . MPV (test code = 37148-9) 9.5 fL 9.8-13 L NRBC/100 WBC (test code = See_Comment [ Automated message] The 9626146886) system which ge nerated this result transmit dain reference range: 0.0 - 10 .0 /100 WBCs. The reference r meredith was not used to interpr et this result as normal/abnor mal. NRBC x10^3 (test code = See_Comment [Au tomated message] The 7523530130) system which ge nerated this result transmit dain reference range: 10*3/?L. The reference range was not u sed to interpret this result as normal/abnormal . SEG % (test code = 11298-4) 56 % 33-76 LYMPH % (test code = 28 % 14-54 74608-0) MONO % (test code = 56379-3) 12 % 0-4 H EOS % (test code = 18239-2) 4 % 0-3 H ANC (test code = 753-4) 4.72 10*3/uL 1.99-6.95 PLT ESTIMATE (test code = Normal Normal 9317-9) Lab Interpretation (test Abnormal code = 25610-5) [facility] (83726[facility]2022-04-10 04:19:15 Test Item Value Reference Range Interpretation Comments NA (test code = 137 mmol/L 135-145 2570472802) K (test code = 4.6 mmol/L 3.5-5 9255536753) CL (test code = 108 mmol/L 98-108 7381556714) CO2 TOTAL (test code = 22 mmol/L 23-31 L 4057295917) AGAP (test code = 2-16 8970068318) BUN (test code = 16 mg/dL 7-23 4970421280) GLUCOSE (test code = 96 mg/dL 70-110 2578744392) CREATININE (test code = 1.35 mg/dL 0.6-1.25 H 9897444254) TOTAL BILI (test code = 0.4 mg/dL 0.1-1.7 4250647428) CALCIUM (test code = 9.1 mg/dL 8.6-10.6 2024049656) T PROTEIN (test code = 5.5 g/dL 6.3-8.2 L 4251898047) ALBUMIN (test code = 3.9 g/dL 3.5-5 0618620038) ALK PHOS (test code = 58 U/L 34-122 6273994186) ALTv (test code = 41 U/L 5-50 1742-6) AST(SGOT) (test code = 42 U/L 13-40 H 1063421288) eGFR (test code = mL/min/1.73m2 6012778694) GILBERTO (test code = GILBERTO) Association of [...] tests). Lab Interpretation Abnormal (test code = 22203-2) [facility] 03:33:31 Test Item Value Reference Range Interpretation Comments LIPASE (test code = 5787237257) 90 U/L 0-220 Lab Interpretation (test code = Normal 61716-6) [facility]-16 12:00:33 Test Item Value Reference Range Interpretation Comments MAGNESIUM (test code = 7236515899) 1.5 mg/dL 1.7-2.4 L Lab Interpretation (test code = Abnormal 72822-1) [facility] (NA, K, CL, CO2, GLUCOSE, BUN, CREATININE, CA)2022-04-08 11:12:32 Test Item Value Reference Range Interpretation Comments NA (test code = 136 mmol/L 135-145 4580480625) K (test code = 4.1 mmol/L 3.5-5 4638321136) CL (test code = 108 mmol/L 98-108 0380715610) CO2 TOTAL (test code = 25 mmol/L 23-31 2642232502) AGAP (test code = 2-16 5431142197) BUN (test code = 10 mg/dL 7-23 4183166999) GLUCOSE (test code = 82 mg/dL 70-110 8410067872) CREATININE (test code = 1.10 mg/dL 0.6-1.25 3624042174) CALCIUM (test code = 8.3 mg/dL 8.6-10.6 L 6863402745) eGFR (test code = mL/min/1.73m2 6243426964) GILBERTO (test code = GILBERTO) Association of [...] tests). Lab Interpretation Abnormal (test code = 78065-7) [facility]2022-08-16 11:12:32 Test Item Value Reference Range Interpretation Comments PHOSPHORUS (test code = 8900998518) 2.5 mg/dL 2.5-5 Lab Interpretation (test code = Normal 71521-6) [facility] WITH [id number] 10:47:27 Test Item Value Reference Range Interpretation Comments WBC (test code = See_Comment [Automated 2890-2) message] The sy stem which generated this [...] (test code = 54.4 fL 38.5-51.6 H 17500-2) RDW-CV (test code = 16.9 % 12.1-15.4 H 788-0) PLT (test code = See_Comment [Automated 777-3) message] The sy stem which generated this result transmitted reference range : 150 - 328 10*3/ ?L. The reference r meredith was not used to interpret this result as normal/abnormal . MPV (test code = 9.7 fL 9.8-13 L 41430-3) NRBC/100 WBC (test See_Comment [Automat ed code = 6231510888) message] The system which generated this result transmitted reference range : 0.0 - 10.0 /100 WBCs. The refer ence range was not u sed to interpret th is result as normal/abnormal . NRBC x10^3 (test code See_Comment [Auto mated = 5980013485) message] The s ystem which generated this result transmitted reference range : 10*3/?L. The reference range was not used to interpret this result as normal/abnormal . GRAN MAT (NEUT) % 54.7 % (test code = 770-8) IMM GRAN % (test code 0.40 % = 9745091837) LYMPH % (test code = 33.8 % 736-9) MONO % (test code = 8.7 % 5905-5) EOS % (test code = 2.0 % 713-8) BASO % (test code = 0.4 % 706-2) GRAN MAT x10^3(ANC) 2.95 10*3/uL 1.99-6.95 (test code = 2445415228) IMM GRAN x10^3 (test 0-0.06 code = 5569816947) LYMPH x10^3 (test code 1.82 10*3/uL 1.09-3.23 = 731-0) MONO x10^3 (test code 0.47 10*3/uL 0.36-1.02 = 742-7) EOS x10^3 (test code = 0.11 10*3/uL 0.06-0.53 711-2) BASO x10^3 (test code 0.01-0.09 = 704-7) Lab Interpretation Abnormal (test code = 79529-0) [facility] METABOLIC PANEL (NA, K, CL, CO2, GLUCOSE, BUN, CREATININE, CA)2022-04-06 09:47:17 Test Item Value Reference Range Interpretation Comments NA (test code = 134 mmol/L 135-145 L 4521905776) K (test code = 4.2 mmol/L 3.5-5 Slight 9991467515) hemolysis CL (test code = 114 mmol/L 98-108 H 0071597307) CO2 TOTAL (test code 16 mmol/L 23-31 L = 6648926984) AGAP (test code = 2-16 7494946390) BUN (test code = 16 mg/dL 7-23 Slight 2540091967) hemolysis GLUCOSE (test code = 79 mg/dL 70-110 2424809016) CREATININE (test code 1.00 mg/dL 0.6-1.25 = 4050043491) CALCIUM (test code = 7.5 mg/dL 8.6-10.6 L 4988597225) eGFR (test code = mL/min/1.73m2 3496560146) GILBERTO (test code = GILBERTO) Association of [...] tests). Lab Interpretation Abnormal (test code = 33471-4) [facility] Test Item Value Reference Range Interpretation Comments MAGNESIUM (test code = 9231501931) 1.2 mg/dL 1.7-2.4 L Lab Interpretation (test code = Abnormal 44333-7) [facility] Cefjg5909-34-85 09:16:49 Test Item Value Reference Range Interpretation Comments LACTIC ACID (test code = 1.35 mmol/L 0.5-2.2 1248657001) Lab Interpretation (test code = Normal 62507-3) [facility] ZQOR5213-10-28 09:13:32 Test Item Value Reference Range Interpretation [...] (test code = 52.4 fL 38.5-51.6 H 61573-5) RDW-CV (test code = 16.6 % 12.1-15.4 H 788-0) PLT (test code = See_Comment [Automated 777-3) message] The sy stem which generated this result transmitted reference range : 150 - 328 10*3/ ?L. The reference r meredith was not used to interpret this result as normal/abnormal . MPV (test code = 10.0 fL 9.8-13 34490-7) NRBC/100 WBC (test See_Comment [Automat ed code = [id number]) message] The system which generated this result transmitted reference range : 0.0 - 10.0 /100 WBCs. The refer ence range was not u sed to interpret th is result as normal/abnormal . NRBC x10^3 (test code See_Comment [Auto mated = 0210517961) message] The s ystem which generated this result transmitted reference range : 10*3/?L. The reference range was not used to interpret this result as normal/abnormal . GRAN MAT (NEUT) % 48.6 % (test code = 770-8) IMM GRAN % (test code 0.20 % = 4832536136) LYMPH % (test code = 39.4 % 736-9) MONO % (test code = 9.3 % 5905-5) EOS % (test code = 1.9 % 713-8) BASO % (test code = 0.6 % 706-2) GRAN MAT x10^3(ANC) 2.36 10*3/uL 1.99-6.95 (test code = 3742544392) IMM GRAN x10^3 (test 0-0.06 code = 8486748477) LYMPH x10^3 (test code 1.91 10*3/uL 1.09-3.23 = 731-0) MONO x10^3 (test code 0.45 10*3/uL 0.36-1.02 = 742-7) EOS x10^3 (test code = 0.09 10*3/uL 0.06-0.53 711-2) BASO x10^3 (test code 0.03 10*3/uL 0.01-0.09 = 704-7) Lab Interpretation Abnormal (test code = 82734-9) [facility]2022-08-12 07:34:48 Test Item Value Reference Range Interpretation Comments MAGNESIUM (test code = 9257800937) 1.8 mg/dL 1.7-2.4 Lab Interpretation (test code = Normal 16394-0) [facility] [id number] 18:40:18 Test Item Value Reference Range Interpretation Comments PH (test code = 7.32-7.42 L 2623557053) PCO2 PANKAJ (test code = See_Comment [Auto mated message] 0368441720) The system [employer] generated this result transmitted ref erence range: 41 - 51 mmHg. The reference r meredith was not used to interpret this result as normal/abnor mal. PO2 PANKAJ (test code = See_Comment L [Autom ated message] 2918991211) The system [employer] generated this result transmitted ref erence range: 25 - 40 mmHg. The reference r meredith was not used to interpret this result as normal/abnor mal. HCO3 PANKAJ (test code = See_Comment L [Auto mated message] 4297410266) The system [employer] generated this result transmitted ref erence range: 24 - 28 mEq/L. The reference r meredith was not used to interpret this result as normal/abnor mal. AC VBE(BEAKER) (test mEq/L code = 7250704662) Lab Interpretation (test Abnormal code = 71396-7) [facility] (NA, K, CL, CO2, GLUCOSE, BUN, CREATININE, CA)2022-04-03 18:33:26 Test Item Value Reference Range Interpretation Comments NA (test code = 129 mmol/L 135-145 L 8798525930) K (test code = 3.3 mmol/L 3.5-5 L 3430388291) CL (test code = 100 mmol/L 98-108 5172848549) CO2 TOTAL (test code = 19 mmol/L 23-31 L 2268220753) AGAP (test code = 2-16 0792903648) BUN (test code = 49 mg/dL 7-23 H 9453157584) GLUCOSE (test code = 75 mg/dL 70-110 4552838503) CREATININE (test code = 2.55 mg/dL 0.6-1.25 H 8272028185) CALCIUM (test code = 8.6 mg/dL 8.6-10.6 2576660021) eGFR (test code = mL/min/1.73m2 8707446310) GILBERTO (test code = GILBERTO) Association of [...] tests). Lab Interpretation Abnormal (test code = 48773-2) [facility], SERUM OR [id number] 15:45:31 Test Item Value Reference Range Interpretation Comments OSMOLALITY (test code = See_Comment [Au tomated message] 5232-2) The system [employer] generated this result transmitted ref erence range: 278 - 30 5 mOsm/kg. The re ference range was not u sed to interpret this result as normal/abnor mal. Lab Interpretation (test Normal code = 60306-9) [facility] with Dwghwksuiuvc6432-61-49 11:27:34 Test Item Value Reference Range Interpretation [...] RDW-SD (test code = 48.7 fL 38.5-51.6 84026-2) RDW-CV (test code = 15.9 % 12.1-15.4 H 788-0) PLT (test code = See_Comment [Automated 777-3) message] The sy stem which generated this result transmitted reference range : 150 - 328 10*3/ ?L. The reference r meredith was not used to interpret this result as normal/abnormal . MPV (test code = 9.4 fL 9.8-13 L 92687-8) NRBC/100 WBC (test See_Comment [Automat ed code = 8860528229) message] The system which generated this result transmitted reference range : 0.0 - 10.0 /100 WBCs. The refer ence range was not u sed to interpret th is result as normal/abnormal . NRBC x10^3 (test code See_Comment [Auto mated = 4296222681) message] The s ystem which generated this result transmitted reference range : 10*3/?L. The reference range was not used to interpret this result as normal/abnormal . GRAN MAT (NEUT) % 56.0 % (test code = 770-8) IMM GRAN % (test code 0.50 % = 8892809280) LYMPH % (test code = 33.2 % 736-9) MONO % (test code = 8.6 % 5905-5) EOS % (test code = 1.1 % 713-8) BASO % (test code = 0.6 % 706-2) GRAN MAT x10^3(ANC) 3.64 10*3/uL 1.99-6.95 (test code = 7827626084) IMM GRAN x10^3 (test 0.03 10*3/uL 0-0.06 code = 3506390284) LYMPH x10^3 (test code 2.16 10*3/uL 1.09-3.23 = 731-0) MONO x10^3 (test code 0.56 10*3/uL 0.36-1.02 = 742-7) EOS x10^3 (test code = 0.07 10*3/uL 0.06-0.53 711-2) BASO x10^3 (test code 0.04 10*3/uL 0.01-0.09 = 704-7) Lab Interpretation Abnormal (test code = 00504-6) [facility] (NA, K, CL, CO2, GLUCOSE, BUN, CREATININE, CA)2022-04-03 10:08:59 Test Item Value Reference Range Interpretation Comments NA (test code = 125 mmol/L 135-145 L 0804770393) K (test code = 3.7 mmol/L 3.5-5 2836796791) CL (test code = 96 mmol/L 98-108 L 9663542729) CO2 TOTAL (test code = 15 mmol/L 23-31 L 0534164130) AGAP (test code = 2-16 3062513651) BUN (test code = 50 mg/dL 7-23 H 2265581289) GLUCOSE (test code = 86 mg/dL 70-110 5476339706) CREATININE (test code = 3.86 mg/dL 0.6-1.25 H 7834361276) CALCIUM (test code = 8.6 mg/dL 8.6-10.6 0660411883) eGFR (test code = mL/min/1.73m2 3244473000) GILBERTO (test code = GILBERTO) Association of [...] tests). Lab Interpretation Abnormal (test code = 53403-1) [facility] District[facility] Whole Egfsm3047-21-55 04:09:02 Test Item Value Reference Range Interpretation Comments LACTIC ACID (test code = 1.54 mmol/L 0.5-2.2 4372010290) Lab Interpretation (test code = Normal 14548-8) [facility] Whole Ejvby3857-72-09 00:25:08 Test Item Value Reference Range Interpretation Comments LACTIC ACID (test code = 2.50 mmol/L 0.5-2.2 H 6168842457) Lab Interpretation (test code = Abnormal 70108-2) [facility] WITH [id number] 20:19:45 Test Item Value Reference Range Interpretation Comments WBC (test code = See_Comment H [Automated 6690-2) message] The system which generated this result transmit dain reference range : 4.20 - 10.70 10*3/?L. The reference range was not used to interpret this result as normal/abnormal . RBC (test code = See_Comment [Automated 789-8) message] The system which generated [...] RDW-SD (test code = 49.8 fL 38.5-51.6 23088-2) RDW-CV (test code = 16.4 % 12.1-15.4 H 788-0) PLT (test code = See_Comment H [Automated 777-3) message] The system which generated this result transmit dain reference range : 150 - 328 10*3/ ?L. The reference range was not u sed to interpret th is result as normal/abnormal . MPV (test code = 10.7 fL 9.8-13 85895-8) NRBC/100 WBC (test See_Comment [Automat ed code = 8921668329) message] The system which generated this result transmit dain reference range : 0.0 - 10.0 /100 WBCs. The reference range was not used to interpret this result as normal/abnormal . NRBC x10^3 (test code See_Comment [Auto mated = 5307021750) message] The system which generated this result transmit dain reference range : 10*3/?L. The reference range was not used to interpret this result as normal/abnormal . GRAN MAT (NEUT) % 73.4 % (test code = 770-8) IMM GRAN % (test code 0.60 % = 8015009076) LYMPH % (test code = 17.2 % 736-9) MONO % (test code = 8.2 % 5905-5) EOS % (test code = 0.2 % 713-8) BASO % (test code = 0.4 % 706-2) GRAN MAT x10^3(ANC) 10.17 10*3/uL 1.99-6.95 H (test code = 2735955147) IMM GRAN x10^3 (test 0.09 10*3/uL 0-0.06 H code = 6689833597) LYMPH x10^3 (test code 2.38 10*3/uL 1.09-3.23 = 731-0) MONO x10^3 (test code 1.13 10*3/uL 0.36-1.02 H = 742-7) EOS x10^3 (test code = 0.03 10*3/uL 0.06-0.53 L 711-2) BASO x10^3 (test code 0.05 10*3/uL 0.01-0.09 = 704-7) Lab Interpretation Abnormal (test code = 27937-5) [facility] W/AUTO [id number] 00:06:00 Test Item Value Reference Range Interpretation [...] = MX#) 0.5 k/mm3 0.1-0.8 N TROPONIN-I [id number] 15:07:00 Test Item Value Reference Range Interpretation Comments TROPONIN-I RAPID 0.00 ng/mL 0.00-0.08 N Performed b y certified (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 BASIC METABOLIC [id number] 14:56:00 Test Item Value Reference Range Interpretation [...] MG/DL 70-110 N - XR CHEST 1 [id number] 00:00:00 [facility] : 1970 Sex: M FAX: Sabi Kirby MD [phone] [place]: [place] St: REG Name: HOANG JOSEPH FSED : 1970 Age/S: 52/M [address] [facility] Unit #: [id number] [place]: [place] [address] Phys: Sabi Urias MD Acct: [id number] Dis Date: Status: REG ER PHONE #: Exam Date: 03/29/2022 1501 FAX #: Reason: Weakness EXAMS: CPT CODE:[id number] XR CHEST 1 V 63196 PROCEDURE INFORMATION: Exam: XR Chest Exam date [...] Bailey M.D. CC: Sabi Urias MD Technologist: Avtar Lang RT(R)(CT) Trnscrd Date/Time/By: 03/29/2022 (1530) : By: Candido.TTV Orig Print D/T: S: 03/29/2022 (3080) PAGE 1 Signed ReportHEPATIC FUNCTION [id number] 06:45:03 Test Item Value Reference Range Interpretation [...] (test code = 13 U/L 6-55 347) Direct Mail Coordinator ID - ERWIN WBASIC METABOLIC [id number] 06:45:02 Test Item Value Reference Range Interpretation [...] S NOT APPLICABLE FOR DIALYSIS PATIEN TS. Direct Mail Coordinator ID - ERWIN WCBC W/PLT COUNT & AUTO [id number] 06:26:54 Test Item Value Reference Range Interpretation [...] (BEAKER) (test code = 2801) U/S, RENAL, [id number] 19:23:00Reason for exam:->acute kidney injury [facility] 1970 Sex: MFINAL [...] SARS-Co V-2 (test code = target nucleic 78093-6) acids are not detected in thi s [...] S ARS CoV-2 test is a rapid, real-kyle e RT-PCR test intended for th e qualitative detection of nucleic acid fr om SARS-CoV-2 in a nasopharyngeal swab specimen colle dain from individual s suspected of COVID-19 [...] revoked sooner. Fact Sheet for Healthcare Providers: https://www.[employer]/Documents/Xp ert%20Xpress%20SAR S%20CoV-2/Fact%20S heets/302-3802%20S ARS-COV-2%20HEALTH CARE%20PROVIDERS%2 0FACT%20SHEET.pdf Fact Sheet for Healthcare Patients: https://www.[employer]/Documents/Xp ert%20Xpress%20SAR S%20CoV-2/Fact%20S heets/302-3801%20S ARS-COV-2%20PATIEN T%20FACT%20SHEET.p df Lab Interpretation Normal (test code = 24167-5) [facility]22-[facility]-06 19:17:07 Test Item Value Reference Interpretation Comments Range SARS-COV2/RT-PCR Negative Negative The SARS-Co V-2 (test code = target nucleic 95555-6) acids are not detected in thi s [...] S ARS CoV-2 test is a rapid, real-kyle e RT-PCR test intended for th e [...] revoked sooner. Fact Sheet for Healthcare Providers: https://www.[employer]/Documents/Xp ert%20Xpress%20SAR S%20CoV-2/Fact%20S heets/302-3802%20S ARS-COV-2%20HEALTH CARE%20PROVIDERS%2 0FACT%20SHEET.pdf Fact Sheet for Healthcare Patients: https://www.[employer]/Documents/Xp ert%20Xpress%20SAR S%20CoV-2/Fact%20S heets/302-3801%20S ARS-COV-2%20PATIEN T%20FACT%20SHEET.p df Lab Interpretation Normal (test code = 18808-0) [facility]2022-03-06 19:17:07 Test Item Value Reference Interpretation Comments Range SARS-COV2/RT-PCR Negative Negative The SARS-Co V-2 (test code = target nucleic 39099-8) acids are not detected in thi s [...] S ARS CoV-2 test is a rapid, real-kyle e RT-PCR test intended for th e qualitative detection of nucleic acid fr om SARS-CoV-2 in a [facility]oph[facility]ab [facility] from individual s suspected of COVID-19 [...] revoked sooner. Fact Sheet for Healthcare Providers: https://www.[employer]/Documents/Xp ert%20Xpress%20SAR S%20CoV-2/Fact%20S heets/302-3802%20S ARS-COV-2%20HEALTH CARE%20PROVIDERS%2 0FACT%20SHEET.pdf Fact Sheet for Healthcare Patients: https://www.[employer]/Documents/Xp ert%20Xpress%20SAR S%20CoV-2/Fact%20S heets/302-3801%20S ARS-COV-2%20PATIEN T%20FACT%20SHEET.p df Lab Interpretation Normal (test code = 72038-0) [facility])2022-03-06 19:17:07 Test Item Value Reference Range Interpretation Comments SARS-COV2/RT-PCR Negative Negative The SARS-Co V-2 target (test code = nucleic acids a re not 2446807) detected in thi s specimen. Negative result [...] revoked sooner. Fact Sheet for Healthcare Providers: https://www.[employer]/Documents/Xpert%20Xpress%20SARS%20CoV-2/Fact%20Sheets/302-3802%07ZGRT-TMT-8%20 HEALTHCARE%20PROVIDERS%20FACT%20SHEET.pdf Fact Sheet for Healthcare Patients: https://www.[employer]/Documents/Xpert%20Xp ress%20SARS%20CoV-2/Fact%20Sheets/302-3801%26MQHJ-EKO-5%20PATIENT%20FACT%20SHEET .pdfCREATINE KINASE (CK)2022-03-06 16:19:14 Test Item Value Reference Range Interpretation Comments CREATINE KINASE TOTAL (BEAKER) (test 141 U/L 29-200 code = 380) Direct Mail Coordinator ID - BST4, [id number] 15:13:16 Test Item Value Reference Range Interpretation Comments FREE T4 (BEAKER) (test code = 655) 0.95 ng/dL 0.70-1.48 Direct Mail Coordinator ID - BSTSH/FREE T4 IF GRGRNAJUG0490-05-50 15:13:16 Test Item Value Reference Range Interpretation Comments THYROID STIMULATING HORMONE 2.060 uIU/mL 0.350-4.940 (BEAKER) (test code = 772) Direct Mail Coordinator ID - BSB-TYPE NATRIURETIC FACTOR (BNP)2022-03-06 14:26:30 Test Item Value Reference Range Interpretation Comments B-TYPE NATRIURETIC PEPTIDE (BEAKER) < pg/mL 0-100 (test code = 700) Direct Mail Coordinator ID - JSHIGH SENSITIVITY TROPONIN [id number] 14:14:54 Test Item Value Reference Range Interpretation Comments HIGH SENSITIVITY < pg/ml See_Comment [Automated message] TROPONIN I (test code = The system which 1985063) generated this result transmitted ref erence range: <=35. Th e reference range was not used to interpr et this result as normal/abnormal . Direct Mail Coordinator ID - JSThe TOW CAR DRIVER STAT High Sensitivity Troponin-I results should be used in conjunctionwith other diagnostic information such as ECG, clinical observations and information, and patient symptoms to aid in the diagnosis of [place].RAD, CHEST, 1 VIEW, NON [id number] 14:10:00Reason for exam:- >NEUROLOGIC PROBLEMShould this be performed at the bedside?->Yes [facility] : 1970 Sex: MFINAL REPORT Chest, 1 view, 03/06/2022 2:03 PM. History: Neurologic problem. Comparison: 03/28/2019. Discussion: The cardiomediastinal silhouette and pulmonary vasculature are within normal limits for a portable exam. The lungs are clear without evidence of consolidation or effusion. The soft tissues and osseous structures are intact. IMPRESSION: No acute cardiopulmonary abnormality. Signed: [facility] Verified Date/Time: 03/06/2022 14:10:44 REHENSIVE METABOLIC [id number] 14:08:22 Test Item Value Reference Range Interpretation [...] S NOT APPLICABLE FOR DIALYSIS PATIEN TS. Direct Mail Coordinator ID - [id number] 14:07:49 Test Item Value Reference Range Interpretation Comments MAGNESIUM (BEAKER) (test code = 2.0 mg/dL 1.6-2.6 627) Direct Mail Coordinator ID - [id number] 14:07:49 Test Item Value Reference Range Interpretation Comments PHOSPHORUS (BEAKER) (test code = 5.6 mg/dL 2.3-4.7 H 604) Direct Mail Coordinator ID - JSLACTIC ACID, [id number] 13:51:04 Test Item Value Reference Range Interpretation Comments LACTATE BLOOD VENOUS 1.32 mmol/L 0.50-2.20 Specime n slightly (2) (BEAKER) (test hemolyzed code = 1054) Direct Mail Coordinator ID - JSCBC W/PLT COUNT & AUTO [id number] 13:47:24 Test Item Value Reference Range Interpretation [...] (BEAKER) (test code = 2801) Coronavirus, CoVID-19, [id number] 01:07:20 Test Item Value Reference Range Interpretation Comments COVID-19 (SARS-COV-2) Not Detected Not Detected INTERP RETATION: No (test code = 95624-5) detect able levels of SARS-CoV-2 Coronavirus (COVID-19) [...] SARS-CoV-2 mole cular diagnostic assa y utilizes Wellness Program Coordinator Mediated Amplification ( TMA) technology to r apidly detect the SARS -CoV-2 (COVID-19) viru s from respiratory adriana ples. In accordance w ith the FDA's kamran nce document "Polic y for Diagnostic Test s for Coronavirus Disease-2019 du [facility]", thi s test was developed, and its performance characteristics were verified by the [facility] molecular diagn ostics laboratory and is authorized for clinical diagno stic use. This labor atory is certified un estevan the Clinical Laboratory Improvement Amendments (CLI A) as qualified to pe rform high complexity clinical labora tory testing. Lab Interpretation Normal (test code = 23428-4) [facility], CoVID-19, [id number] 01:07:20 Test Item Value Reference Range Interpretation Comments COVID-19 (SARS-COV-2) Not Detected Not Detected INTERP RETATION: No (test code = 98898-7) detect able levels of SARS-CoV-2 Coronavirus (COVID-19) [...] SARS-CoV-2 mole cular diagnostic assa y utilizes Wellness Program Coordinator Mediated Amplification ( TMA) technology to r apidly detect the SARS -CoV-2 (COVID-19) viru s from respiratory adriana ples. In accordance w ith the FDA's kamran nce document "Polic y for Diagnostic Test s for Coronavirus Disease-2019 du [facility]", thi s test was developed, and its performance characteristics were verified by the [facility] molecular diagn ostics laboratory and is authorized for clinical diagno stic use. This labor atory is certified un est[place] the Clinical Laboratory Improvement Amendments (CLI A) as qualified to pe rform high complexity clinical labora tory testing. Lab Interpretation Normal (test code = 36583-5) [facility] HealthTauazvBIQM-KvP-5 ORF1ab Resp Ql OLENA+aoizd4146-02-46 01:07:20 Test Item Value Reference Range Interpretation Comments Hospitalized? (test No code = 94036-7) ICU? (test code = No 12126-4) Symptomatic as No defined by CDC? (test code = 30129-1) Employed in No Healthcare? (test code = 39422-6) Resident in a No congregate care setting (including nursing homes, residential care for people with intellectual and developmental disabilities, psychiatric treatment facilities, group homes, board and care homes, homeless penitentiary, foster care or other): (test code = 27287-2) SARS-CoV-2 ORF1ab NOT DETECTED Not Detected INTERPRETA TION: No Resp Ql OLENA+probe detectable levels of (test code = SARS-CoV-2 62623-7) Coronavirus (COVID-19) were present in this patient's [...] SARS-CoV-2 mole cular diagnostic assa y utilizes Wellness Program Coordinator Mediated Amplification ( TMA) technology to r apidly detect the SARS -CoV-2 (COVID-19) viru s from respiratory adriana ples. In accordance with\\XC2A0\\the FDA's guidance docume nt "Policy for Diagnostic Test s for Coronavirus Disease-2019 du [facility]", amalia s test was developed, and its performance characteristics were verified by the [facility] molecular diagn ostics laboratory and is authorized for clinical diagno stic use. \\XC2A0\\Amalia s laboratory is certified under the Clinical Labora tory Improvement Amendments (CLI A) as qualified to pe rform high complexity clinical labora tory testing. POCT GLUCOSE POC docked [id number] 08:09:01 Test Item Value Reference Range Interpretation Comments Glucose POC (test code = 25999783) 85 mg/dL 74-106 Lab Interpretation (test code = Normal 51578-0) [facility] [id number] 08:09:01 Test Item Value Reference Range Interpretation Comments Glucose POC (test code = 56044465) 85 mg/dL 74-106 Lab Interpretation (test code = Normal 61087-2) [facility] ORF1ab Resp Ql OLENA+bskag1550-14-44 23:25:40 Test Item Value Reference Range Interpretation Comments Hospitalized? (test No code = 94793-7) ICU? (test code = No 95774-1) Symptomatic as No defined by CDC? (test code = 74095-3) Employed in No Healthcare? (test code = 83862-4) Resident in a No congregate care setting (including nursing homes, residential care for people with intellectual and developmental disabilities, psychiatric treatment facilities, group homes, board and care homes, homeless penitentiary, foster care or other): (test code = 60856-4) SARS-CoV-2 ORF1ab NOT DETECTED Not Detected INTERPRETA TION: No Resp Ql OLENA+probe detectable levels of (test code = SARS-CoV-2 55993-7) Coronavirus (COVID-19) were present in this patient's [...] SARS-CoV-2 mole cular diagnostic assa y utilizes Wellness Program Coordinator Mediated Amplification ( TMA) technology to r apidly detect the SARS -CoV-2 (COVID-19) viru s from respiratory adriana ples. In accordance with\\XC2A0\\the FDA's guidance docume nt "Policy for Diagnostic Test s for Coronavirus Disease-2019 du [facility]", amalia s test was developed, and its performance characteristics were verified by the [facility] molecular diagn ostics laboratory and is authorized for clinical diagno stic use. \\XC2A0\\Amalia s laboratory is certified under the Clinical Labora tory Improvement Amendments (CLI A) as qualified to pe rform high complexity clinical labora tory testing. 12 Lead [id number] 15:46:1012 LEAD EKG FOR [facility] Test Date: 7724-70-64Jsy Name: DORA JOSEPH Department: 5ECIPatient ID: [id number] Room: Gender: M Mobile Home Installer: [id number]: 1970 Requested By: SUSHIL Cho Number: [id number] Reading MD: Rene Patterson MeasurementsIntervals [place] Rate: 61 P: 72PR: 152 QRS: 55QRSD: 106 T: 63QT: 398 QTc: 400 Interpretive StatementsSINUS RHYTHMPOSSIBLE RIGHT VENTRICULAR CONDUCTION DELAY [RSR (QR) IN V1/V2]Electronically Signed On 01-22-2022 8:30:45 CDT by Rene Valle Eudtgs56 Lead [id number] 15:46:1012 LEAD EKG FOR [facility] Test Date: 0051-18-86Cqz Name: DORA JOSEPH Department: 5ECIPatient ID: [id number] Room: Gender: M Mobile Home Installer: [id number]: 1970 Requested By: SUSHIL Cho Number: [id number] Reading MD: Rene Patterson MeasurementsIntervals [place] Rate: 61 P: 72PR: 152 QRS: 55QRSD: 106 T: 63QT: 398 QTc: 400 Interpretive StatementsSINUS RHYTHMPOSSIBLE RIGHT VENTRICULAR CONDUCTION DELAY [RSR (QR) IN V1/V2]Electronically Signed On 01-22-2022 8:30:45 CDT by Rene AvitiaRICompaformerly [facility] HospitalHIV [facility]+2 Ab+HIV1 p24 Ag SerPl Ql [id number] 07:02:58 Test Item Value Reference Range Interpretation Comments HIV 1+2 Ab+HIV1 p24 Ag SerPl Ql IA NEGATIVE Negative (test code = 82277-0) [id number] 21:23:2512 LEAD EKG FOR [facility] Test Date: 7799-11-25Taf Name: DORA JOSEPH Department: 5520Patient ID: [id number] Room: 2U86Renuja: Mobile Home Installer: : 1970 Requested By: KARIN Ryan Number: [id number] Reading MD: Chiara Calles MeasurementsIntervals [place] Rate: 72 P: 90PR:157 QRS: 87QRSD: 105 T: 90QT: 360 QTc: 384 Interpretive StatementsSINUS RHYTHMPOSSIBLE RIGHT VENTRICULAR CONDUCTION DELAY [RSR (QR) IN V1/V2]EARLY REPOLARIZATION [ST ELEVATION WITH NORMALLY INFLECTED T-WAVE]Electronically Signed On 01-17-2022 13:02:30 CDT by Chiara Redding LekoezGAU3892-74-51 21:23:2512 LEAD EKG FOR [facility] Test Date: 6346-54-25Ksi Name: DORA JOSEPH Department: 5520Patient ID: [id number] Room: 8U00Cclnwp: M Mobile Home Installer: : 1970 Requested By: KARIN BASSETT AOrder Number: [id number] Reading MD: Chiara Calles MeasurementsIntervals [place] Rate: 72 P: 90PR: 157 QRS: 87QRSD: 105 T: 90QT: 360 QTc: 384 Interpretive StatementsSINUS RHYTHMPOSSIBLE RIGHT VENTRICULAR CONDUCTION DELAY [RSR (QR) IN V1/V2]EARLY REPOLARIZATION [ST ELEVATION WITH NORMALLY INFLECTED T-WAVE]Electronically Signed On 01-17-2022 13:02:30 CDT by [facility] - [place]-2 ORF1ab Resp Ql OLENA+probe 2022-01-16 19:57:49 Test Item Value Reference Range Interpretation Comments Hospitalized? (test No code = 72187-1) ICU? (test code = No 64831-2) Symptomatic as No defined by CDC? (test code = 99949-3) Employed in No Healthcare? (test code = 44280-7) Resident in a No congregate care setting (including nursing homes, residential care for people with intellectual and developmental disabilities, psychiatric treatment facilities, group homes, board and care homes, homeless penitentiary, foster care or other): (test code = 79542-4) SARS-CoV-2 ORF1ab NOT DETECTED Not Detected INTERPRETA TION: No Resp Ql OLENA+probe detectable levels of (test code = SARS-CoV-2 02260-8) Coronavirus (COVID-19) were present in this patient's [...] SARS-CoV-2 mole cular diagnostic assa y utilizes Wellness Program Coordinator Mediated Amplification ( TMA) technology to r apidly detect the SARS -CoV-2 (COVID-19) viru s from respiratory adriana ples. In accordance with\\XC2A0\\the FDA's guidance docume nt "Policy for Diagnostic Test s for Coronavirus Disease-2019 du [facility] th Emergency", amalia s test was developed, and its performance characteristics were verified by the [facility] molecular diagn ostics laboratory and is authorized for clinical diagno stic use. \\XC2A0\\Amalia s laboratory is certified under the Clinical Labora tory Improvement Amendments (CLI A) as qualified to pe rform high complexity clinical labora tory testing. POCT CREATININE POC docked [id number] 13:57:55 Test Item Value Reference Range Interpretation Comments Creatinine POC (test 2.4 mg/dL 0.6-1.3 H Physici an Notified code = 47906627) eGFR If non- Am 30 See_Comment L [Aut omated message] (test code = 44111675) The s ystem which generated this result transmit dain reference range : >=90 mL/min/1.7 3 m2. The reference r meredith was not used to interpret this result as normal/abnormal . eGFR If Am (test 35 See_Comment L [A utomated message] code = 70613878) The system which generated this result transmit dain reference range : >=90 mL/min/1.7 3 m2. The reference r meredith was not used to interpret this result as normal/abnormal . Lab Interpretation (test Abnormal code = 94411-2) [facility] CREATININE POC docked [id number] 13:57:55 Test Item Value Reference Range Interpretation Comments Creatinine POC (test 2.4 mg/dL 0.6-1.3 H Physici an Notified code = 48726857) eGFR If non- Am 30 See_Comment L [Aut omated message] (test code = 77707080) The s ystem which generated this result transmit dain reference range : >=90 mL/min/1.7 3 m2. The reference r meredith was not used to interpret this result as normal/abnormal . eGFR If Am (test 35 See_Comment L [A utomated message] code = 45731830) The system which generated this result transmit dain reference range : >=90 mL/min/1.7 3 m2. The reference r meredith was not used to interpret this result as normal/abnormal . Lab Interpretation (test Abnormal code = 82454-2) [facility] BMP POC docked [id number] 13:48:46 Test Item Value Reference Range Interpretation Comments Sodium POC (test code = 126 mmol/L 136-145 L 68311292) Potassium POC (test code 4.4 mmol/L 3.5-5.1 = 69560293) Chloride POC (test code 100 mmol/L 98-107 = 43391725) TCO2 POC (test code = 17 mmol/L 21-32 L Physic aylin Notified 72236893) Urea Nitrogen POC (test 36 mg/dL 7-18 H code = 77094876) Glucose POC (test code = 114 mg/dL 74-106 H 41789024) Hemoglobin POC (test 11.9 g/dL 12-16 L code = 71283163) Hematocrit POC (test 35.0 % 37.0-47.0 L code = 77097106) Lab Interpretation (test Abnormal code = 83961-0) [facility] POC docked [id number] 13:48:46 Test Item Value Reference Range Interpretation Comments Sodium POC (test code = 126 mmol/L 136-145 L 86168176) Potassium POC (test code 4.4 mmol/L 3.5-5.1 = 11330675) Chloride POC (test code 100 mmol/L 98-107 = 57064559) TCO2 POC (test code = 17 mmol/L 21-32 L Physic aylin Notified 25119913) Urea Nitrogen POC (test 36 mg/dL 7-18 H code = 42695380) Glucose POC (test code = 114 mg/dL 74-106 H 40669637) Hemoglobin POC (test 11.9 g/dL 12-16 L code = 10856494) Hematocrit POC (test 35.0 % 37.0-47.0 L code = 22280512) Lab Interpretation (test Abnormal code = 60036-6) [facility]-2 ORF1ab Resp Ql OLENA+[id number] 20:25:16 Test Item Value Reference Range Interpretation Comments Hospitalized? (test No code = 70823-1) ICU? (test code = No 07549-1) Symptomatic as No defined by CDC? (test code = 95696-4) Employed in No Healthcare? (test code = 41686-9) Resident in a No congregate care setting (including nursing homes, residential care for people with intellectual and developmental disabilities, psychiatric treatment facilities, group homes, board and care homes, homeless penitentiary, foster care or other): (test code = 69587-0) SARS-CoV-2 ORF1ab NOT DETECTED Not Detected INTERPRETA TION: No Resp Ql OLENA+probe detectable levels of (test code = SARS-CoV-2 49018-9) Coronavirus (COVID-19) were present in this patient's [...] SARS-CoV-2 mole cular diagnostic assa y utilizes Wellness Program Coordinator Mediated Amplification ( TMA) technology to r apidly detect the SARS -CoV-2 (COVID-19) viru s from respiratory adriana ples. In accordance with\\XC2A0\\the FDA's guidance docume nt "Policy for Diagnostic Test s for Coronavirus Disease-2019 du [facility] Emergency", amalia s test was developed, and its performance characteristics were verified by the [facility] molecular diagn ostics laboratory and is authorized for clinical diagno stic use. \\XC2A0\\Thi s laboratory is certified under the Clinical Labora tory Improvement Amendments (CLI A) as qualified to pe rform high complexity clinical labora tory testing. POCT VBG POC docked [id number] 11:16:15 Test Item Value Reference Range Interpretation Comments pH, Pankaj POC (test code 7.32 7.33-7.43 L = 39290654) pCO2,Pankaj POC (test code 31.0 See_Comment L [Au tomated = 80697740) message] The sy stem which generated this result transmitted reference range : 38 - 50 mmHg. The reference range was not used to interpret this result as normal/abnormal . PO2, Venous POC (BKR) 44 See_Comment L [Auto mated (test code = 90228002) messa ge] The system which generated this result transmitted reference range : 50 - 75 mm Hg. The reference range was not used to interpret this result as normal/abnormal . Ionized Calcium POC 1.24 mmol/L 1.15-1.29 (test code = 73657698) HCO3, Pankaj POC (test 16 mmol/L 22-26 L code = 04367520) TCO2 POC (test code = 17 mmol/L 21-32 L 37973854) Base Deficit, Pankaj POC -9 (test code = 66442426) Sample Type (test code IVEN Physi erik Notified = 78838841) % Sat, Pankaj POC (test 77 % code = 49582143) Lab Interpretation Abnormal (test code = 25646-3) [facility] VBG POC docked [id number] 11:16:15 Test Item Value Reference Range Interpretation Comments pH, Pankaj POC (test code 7.32 7.33-7.43 L = 06397825) pCO2,Pankaj POC (test code 31.0 See_Comment L [Au tomated = 91595009) message] The sy stem which generated this result transmitted reference range : 38 - 50 mmHg. The reference range was not used to interpret this result as normal/abnormal . PO2, Venous POC (BKR) 44 See_Comment L [Auto mated (test code = 73293124) messa ge] The system which generated this result transmitted reference range : 50 - 75 mm Hg. The reference range was not used to interpret this result as normal/abnormal . Ionized Calcium POC 1.24 mmol/L 1.15-1.29 (test code = 25250302) HCO3, Pankaj POC (test 16 mmol/L 22-26 L code = 86888123) TCO2 POC (test code = 17 mmol/L 21-32 L 49795562) Base Deficit, Pankaj POC -9 (test code = 75127318) Sample Type (test code IVEN Physi erik Notified = 94310196) % Sat, Pankaj POC (test 77 % code = 01515232) Lab Interpretation Abnormal (test code = 05756-6) [place] [address] LEAD [id number] 20:59:5612 LEAD EKG FOR [facility] Test Date: 4034-60-09Dtc Name: D[place]A [place] Department: 5520Patient ID: [id number] Room: Gender: M Mobile Home Installer: [id number]: 1970 Requested By: TANJA Garza Number: [id number] Reading MD: Chiara Calles MeasurementsIntervals [place] Rate: 75 P: 84PR: 153 QRS: 67QRSD: 104 T: 77QT: 344 QTc: 373 Interpretive StatementsSINUS RHYTHMPOSSIBLE RIGHT VENTRICULAR CONDUCTION DELAY [RSR (QR) IN V1/V2]Electronically Signed On 01-09-2022 8:27:19 CDT [place] [address] LEAD [id number] 20:59:5612 LEAD EKG FOR [facility] Test Date: 1893-92-58Cmx Name: DORA [place] Department: 5520Patient ID: [id number] Room: Gender: M Mobile Home Installer: [id number]: 1970 Requested By: TANJA Garza Number: [id number] Reading MD: Chiara Calles MeasurementsIntervals [place] Rate: 75 P: 84PR: 153 QRS: 67QRSD: 104 T: 77QT: 344 QTc: 373 Interpretive StatementsSINUS RHYTHMPOSSIBLE RIGHT VENTR ICULAR CONDUCTION DELAY [RSR (QR) IN V1/V2]Electronically Signed On 01-09-2022 8:27:19 CDT by [facility] W/AUTO [id number] 23:52:00 Test Item Value Reference Range Interpretation [...] = MX#) 0.8 k/mm3 0.1-0.8 N LIVER [id number] 20:04:00 Test Item Value Reference Range Interpretation Comments TOTAL PROTEIN (test code 6.7 GM/DL 5.0-8.0 N Per formed by = PROT) 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 [facility] ed Ctr ALBUMIN (test code = 3.4 [...] 67 UNITS/L 25-125 N LYNDSEY) BASIC METABOLIC [id number] 19:54:00 Test Item Value Reference Range Interpretation [...] POCGLU) 81 MG/DL - CT ABD PELVIS W/[id number] 00:00:00 [facility] : 1970 Sex: M Name: HOANG JOSEPH FSED : 1970 Age/S: 51 / M [address] [facility] Unit #: [id number] Loc: [place] [address] Phys: Raffaele Levi MD Acct: [id number] Dis Date: Status: PRE ER PHONE #: Exam Date: 09/23/20211999 FAX #: Reason: RUQ PAIN, VOMITING EXAMS: CPT CODE: [id number] CT ABD PELVIS W/CONT 48054 PROCEDURE INFORMATION: Exam: CT Abdomen And Pelvis [...] : 1970 Age/S: 51 / M [address] [facility] Unit #: [id number] Loc: [place] [address] Phys: Raffaele Levi MD Acct: [id number] Dis Date: Status: PRE ER PHONE #: Exam Date: 09/23/20211999 FAX #: Reason: RUQ PAIN, VOMITING EXAMS: CPT CODE: [id number] CT ABD PELVIS W/CONT 28877 <Continued> abdominal small bowel loops may relate to incomplete luminal distention or enteritis. 2. 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 No obstruction. at 2049 Reported and signed by: Juan Juarez M.D. CC: Raffaele Levi MD Technologist:Stephanie Beran, RT(R)(CT) CTDI: DLP: Trnscb Date/Time: 09/23/2021 (2048) [email or web address] Orig Print D/T: S: 09/23/2021 (2049) PAGE 2 Signed ReportCOMP. METABOLIC PANEL (10011)2021-09-14 03:57:44 Test Item Value Reference Range Interpretation Comments NA (test code = 132 mmol/L 135-145 L 1819453640) K (test code = 4.1 mmol/L 3.5-5.0 8774698454) CL (test code = 101 mmol/L 98-108 7182786624) CO2 TOTAL (test code = 23 mmol/L 23-31 2181660718) AGAP (test code = 2-16 1875911903) BUN (test code = 23 mg/dL 7-23 1665796141) GLUCOSE (test code = 97 mg/dL 70-110 6265488341) CREATININE (test code = 1.48 mg/dL 0.60-1.25 H 0749125285) TOTAL BILI (test code = 0.3 mg/dL 0.1-1.5 7663264008) CALCIUM (test code = 9.0 mg/dL 8.6-10.6 1021092849) T PROTEIN (test code = 6.2 g/dL 6.3-8.2 L 5256115476) ALBUMIN (test code = 3.7 g/dL 3.5-5.0 1946468134) ALK PHOS (test code = 82 U/L 34-122 0328917274) ALTv (test code = 21 U/L 5-50 1742-6) AST(SGOT) (test code = 20 U/L 13-40 4079229847) eGFR (test code = mL/min/1.73m2 7240196164) GILBERTO (test code = GILBERTO) Association of [...] tests). Lab Interpretation Abnormal (test code = 99445-6) [facility] WITH [id number] 03:52:42 Test Item Value Reference Range Interpretation Comments WBC (test code = See_Comment [Automated 2890-2) message] The sy stem which generated this result transmitted reference range : 4.20 - 10.70 10*3/?L. The reference range was not used to interpret this result as normal/abnormal . RBC (test code = See_Comment L [Automated 469-8) message] The sy stem which generated this [...] RDW-SD (test code = 47.2 fL 38.5-51.6 06776-9) RDW-CV (test code = 14.0 % 12.1-15.4 788-0) PLT (test code = See_Comment H [Automated 777-3) message] The sy stem which generated this result transmitted reference range : 150 - 328 10*3/ ?L. The reference r meredith was not used to interpret this result as normal/abnormal . MPV (test code = 9.2 fL 9.8-13.0 L 72788-9) NRBC/100 WBC (test See_Comment [Automat ed code = 9675722459) message] The system which generated this result transmitted reference range : 0.0 - 10.0 /100 WBCs. The refer ence range was not u sed to interpret th is result as normal/abnormal . NRBC x10^3 (test code <0.01 See_Comment [Auto mated = 2059754110) message] The s ystem which generated this result transmitted reference range : 10*3/?L. The reference range was not used to interpret this result as normal/abnormal . GRAN MAT (NEUT) % 61.3 % (test code = 770-8) IMM GRAN % (test code 0.20 % = 2398609707) LYMPH % (test code = 23.1 % 736-9) MONO % (test code = 13.7 % 5905-5) EOS % (test code = 1.5 % 713-8) BASO % (test code = 0.2 % 706-2) GRAN MAT x10^3(ANC) 2.78 10*3/uL 1.99-6.95 (test code = 5810753868) IMM GRAN x10^3 (test <0.03 0.00-0.06 code = 0619490682) LYMPH x10^3 (test code 1.05 10*3/uL 1.09-3.23 L = 731-0) MONO x10^3 (test code 0.62 10*3/uL 0.36-1.02 = 742-7) EOS x10^3 (test code = 0.07 10*3/uL 0.06-0.53 711-2) BASO x10^3 (test code <0.03 0.01-0.09 = 704-7) Lab Interpretation Abnormal (test code = 75787-2) [facility] [id number] 13:36:34 Test Item Value Reference Interpretation Comments Range TROPONIN I (test 0.001 ng/mL See_Comment [Automated code = 2887080344) message] The system which generated this result [...] biotin. Lab Interpretation Normal (test code = 47068-4) [facility] [id number] 13:36:34 Test Item Value Reference Range Interpretation Comments NT-proBNP (test code 79 pg/mL See_Comment [Autom ated = 5975172184) message] The system which generated this result transmitted reference range : <=125. The reference range was not used to interpret this result as normal/abnormal . GILBERTO (test code = GILBERTO) Biotin has been reported to cause a negative bias, interpret results relative to patient's use of biotin. Lab Interpretation Normal (test code = 94202-5) [facility] (NA, K, CL, CO2, GLUCOSE, BUN, CREATININE, CA)2021-09-12 13:24:32 Test Item Value Reference Range Interpretation Comments NA (test code = 134 mmol/L 135-145 L 2623237614) K (test code = 4.3 mmol/L 3.5-5.0 7349797802) CL (test code = 102 mmol/L 98-108 0566334605) CO2 TOTAL (test code = 23 mmol/L 23-31 1183396183) AGAP (test code = 2-16 6917218930) BUN (test code = 22 mg/dL 7-23 4428502424) GLUCOSE (test code = 89 mg/dL 70-110 7356723370) CREATININE (test code = 1.69 mg/dL 0.60-1.25 H 8627880866) CALCIUM (test code = 9.0 mg/dL 8.6-10.6 5349167300) eGFR (test code = mL/min/1.73m2 6843150567) GILBERTO (test code = GILBERTO) Association of [...] tests). Lab Interpretation Abnormal (test code = 37788-3) [facility] WITH [id number] 13:09:28 Test Item Value Reference Range Interpretation [...] RDW-SD (test code = 45.3 fL 38.5-51.6 50890-0) RDW-CV (test code = 13.9 % 12.1-15.4 788-0) PLT (test code = See_Comment H [Automated 777-3) message] The sy stem which generated this result transmitted reference range : 150 - 328 10*3/ ?L. The reference r meredith was not used to interpret this result as normal/abnormal . MPV (test code = 9.0 fL 9.8-13.0 L 44490-3) NRBC/100 WBC (test See_Comment [Automat ed code = 2817022269) message] The system which generated this result transmitted reference range : 0.0 - 10.0 /100 WBCs. The refer ence range was not u sed to interpret th is result as normal/abnormal . NRBC x10^3 (test code <0.01 See_Comment [Auto mated = 8545058640) message] The s ystem which generated this result transmitted reference range : 10*3/?L. The reference range was not used to interpret this result as normal/abnormal . GRAN MAT (NEUT) % 69.7 % (test code = 770-8) IMM GRAN % (test code 0.40 % = 9485566025) LYMPH % (test code = 16.9 % 736-9) MONO % (test code = 11.9 % 5905-5) EOS % (test code = 0.7 % 713-8) BASO % (test code = 0.4 % 706-2) GRAN MAT x10^3(ANC) 3.88 10*3/uL 1.99-6.95 (test code = 3367300906) IMM GRAN x10^3 (test <0.03 0.00-0.06 code = 6287248097) LYMPH x10^3 (test code 0.94 10*3/uL 1.09-3.23 L = 731-0) MONO x10^3 (test code 0.66 10*3/uL 0.36-1.02 = 742-7) EOS x10^3 (test code = 0.04 10*3/uL 0.06-0.53 L 711-2) BASO x10^3 (test code <0.03 0.01-0.09 = 704-7) Lab Interpretation Abnormal (test code = 48672-1) [facility] WITH [id number] 05:55:28 Test Item Value Reference Range Interpretation Comments WBC (test code = See_Comment [Automated 6690-2) message] The sy stem which generated this result transmitted reference range : 4.20 - 10.70 10*3/?L. The reference range was not used to interpret this result as normal/abnormal . RBC (test code = See_Comment L [Automated 479-8) message] The sy stem which generated this [...] RDW-SD (test code = 45.4 fL 38.5-51.6 34648-5) RDW-CV (test code = 13.8 % 12.1-15.4 788-0) PLT (test code = See_Comment [Automated 777-3) message] The sy stem which generated this result transmitted reference range : 150 - 328 10*3/ ?L. The reference r meredith was not used to interpret this result as normal/abnormal . MPV (test code = 9.2 fL 9.8-13.0 L 90020-9) NRBC/100 WBC (test See_Comment [Automat ed code = 4566344491) message] The system which generated this result transmitted reference range : 0.0 - 10.0 /100 WBCs. The refer ence range was not u sed to interpret th is result as normal/abnormal . NRBC x10^3 (test code <0.01 See_Comment [Auto mated = 0223385638) message] The s ystem which generated this result transmitted reference range : 10*3/?L. The reference range was not used to interpret this result as normal/abnormal . GRAN MAT (NEUT) % 60.6 % (test code = 770-8) IMM GRAN % (test code 0.20 % = 9049925154) LYMPH % (test code = 25.5 % 736-9) MONO % (test code = 10.5 % 5905-5) EOS % (test code = 2.8 % 713-8) BASO % (test code = 0.4 % 706-2) GRAN MAT x10^3(ANC) 3.23 10*3/uL 1.99-6.95 (test code = 6105192148) IMM GRAN x10^3 (test <0.03 0.00-0.06 code = 1110680091) LYMPH x10^3 (test code 1.36 10*3/uL 1.09-3.23 = 731-0) MONO x10^3 (test code 0.56 10*3/uL 0.36-1.02 = 742-7) EOS x10^3 (test code = 0.15 10*3/uL 0.06-0.53 711-2) BASO x10^3 (test code <0.03 0.01-0.09 = 704-7) Lab Interpretation Abnormal (test code = 75495-7) [facility] 05:48:47 Test Item Value Reference Range Interpretation Comments LIPASE (test code = 3965451789) 116 U/L 0-220 Lab Interpretation (test code = Normal 57663-4) [facility]COMP[facility] MET[facility]OLIC PANEL (15280)2021-09-09 05:48:46 Test Item Value Reference Range Interpretation Comments NA (test code = 137 mmol/L 135-145 8476558043) K (test code = 4.0 mmol/L 3.5-5.0 3141701476) CL (test code = 108 mmol/L 98-108 0954135704) CO2 TOTAL (test code = 22 mmol/L 23-31 L 3294161421) AGAP (test code = 2-16 3303753727) BUN (test code = 23 mg/dL 7-23 7300338183) GLUCOSE (test code = 89 mg/dL 70-110 5947447375) CREATININE (test code = 1.28 mg/dL 0.60-1.25 H 3548724680) TOTAL BILI (test code = 0.4 mg/dL 0.1-1.1 5816060972) CALCIUM (test code = 8.9 mg/dL 8.6-10.6 6961624937) T PROTEIN (test code = 6.0 g/dL 6.3-8.2 L 5709252993) ALBUMIN (test code = 3.5 g/dL 3.5-5.0 2755366872) ALK PHOS (test code = 67 U/L 34-122 6762370789) ALTv (test code = 18 U/L 5-50 1742-6) AST(SGOT) (test code = 22 U/L 13-40 8106446103) eGFR (test code = mL/min/1.73m2 4936960021) GILBERTO (test code = GILBERTO) Association of [...] tests). Lab Interpretation Abnormal (test code = 24608-7) [facility]. METABOLIC PANEL (81039)2021-09-08 02:29:45 Test Item Value Reference Range Interpretation Comments NA (test code = 138 mmol/L 135-145 4792178362) K (test code = 4.3 mmol/L 3.5-5.0 0133584845) CL (test code = 106 mmol/L 98-108 0132971778) CO2 TOTAL (test code = 27 mmol/L 23-31 2281594121) AGAP (test code = 2-16 0983319461) BUN (test code = 22 mg/dL 7-23 6848694576) GLUCOSE (test code = 90 mg/dL 70-110 4705454885) CREATININE (test code = 1.36 mg/dL 0.60-1.25 H 5007111588) TOTAL BILI (test code = 0.4 mg/dL 0.1-1.6 2429496333) CALCIUM (test code = 9.2 mg/dL 8.6-10.6 5154742691) T PROTEIN (test code = 6.5 g/dL 6.3-8.2 3868967128) ALBUMIN (test code = 3.8 g/dL 3.5-5.0 3647395584) ALK PHOS (test code = 73 U/L 34-122 7272784988) ALTv (test code = 19 U/L 5-50 1742-6) AST(SGOT) (test code = 24 U/L 13-40 8273621375) eGFR (test code = mL/min/1.73m2 0653217293) GILBERTO (test code = GILBERTO) Association of [...] tests). Lab Interpretation Abnormal (test code = 45101-3) [facility] 02:29:45 Test Item Value Reference Range Interpretation Comments LIPASE (test code = 7111658969) 75 U/L 0-220 Lab Interpretation (test code = Normal 51493-3) [facility] WITH [id number] 02:15:21 Test Item Value Reference Range Interpretation [...] RDW-SD (test code = 45.9 fL 38.5-51.6 89647-8) RDW-CV (test code = 13.6 % 12.1-15.4 788-0) PLT (test code = See_Comment [Automated 777-3) message] The sy stem which generated this result transmitted reference range : 150 - 328 10*3/ ?L. The reference r meredith was not used to interpret this result as normal/abnormal . MPV (test code = 9.4 fL 9.8-13.0 L 59832-0) NRBC/100 WBC (test See_Comment [Automat ed code = 0795143787) message] The system which generated this result transmitted reference range : 0.0 - 10.0 /100 WBCs. The refer ence range was not u sed to interpret th is result as normal/abnormal . NRBC x10^3 (test code <0.01 See_Comment [Auto mated = 8299489519) message] The s ystem which generated this result transmitted reference range : 10*3/?L. The reference range was not used to interpret this result as normal/abnormal . GRAN MAT (NEUT) % 66.0 % (test code = 770-8) IMM GRAN % (test code 0.50 % = 9783897147) LYMPH % (test code = 20.0 % 736-9) MONO % (test code = 9.8 % 5905-5) EOS % (test code = 3.5 % 713-8) BASO % (test code = 0.2 % 706-2) GRAN MAT x10^3(ANC) 3.77 10*3/uL 1.99-6.95 (test code = 2148898068) IMM GRAN x10^3 (test 0.03 10*3/uL 0.00-0.06 code = 9223293613) LYMPH x10^3 (test code 1.14 10*3/uL 1.09-3.23 = 731-0) MONO x10^3 (test code 0.56 10*3/uL 0.36-1.02 = 742-7) EOS x10^3 (test code = 0.20 10*3/uL 0.06-0.53 711-2) BASO x10^3 (test code <0.03 0.01-0.09 = 704-7) Lab Interpretation Abnormal (test code = 10371-6) [facility] Whole [id number] 02:10:44 Test Item Value Reference Range Interpretation Comments LACTIC ACID (test code = 1.35 mmol/L 0.50-2.20 7478804176) Lab Interpretation (test code = Normal 47934-6) [facility] [id number] 15:31:19 Test Item Value Reference Range Interpretation Comments Case Report (test code Surgical Pathology ? ? = [id number]) ?Case: [id number] ? Authorizing Provider: ?Bia Pedro MD ?Collected: ? 09/03/2021800 ?Ordering Location: ? ? [facility] OR ? Received: ?09/03/2021841 ? Department ? Pathologist: ? He, Shaneka, MD ? Specimen: ? ?ILEUM, Ileostomy ( staple ?end proximal ) ? Final Diagnosis (test k5mmiHJhRXTfo9eaEMFxwX code = 0120717753) FuZzEwMzNcZnRuYmpcdWMx IHtccnRmMVxlcGljOTYwMV rzljBiREXzyJFeW2Snlhfj ANcbQB0gEO0txAqiyVYudE ElRSYzWpMgd3kge278uKAp h1fcGNPCegrtpWb3uZlaI6 0ju2B1LvvlB98bpJHaFPJ6 ZUQyKPVjzDPgKQDfFAX0WT PmaXRvP3xsCNUgOR1gkgat KCgsBXhpTVPxcAK6TBDhuV UrU9DhJKJpVZmrLVEtxky4 OeBsVn8zeAZpcKdyABpyXQ JkXHBsYWluXGZzMjBccGFy IEEuIElMRVVNLCBJTEVPU1 HVPPc7BDJtgqDoFUNuLC3p QkVOSUdOIElMRUFMIFRJU1 YMGRAXAFNTOYCLL9RIKP9S K06SZYouGGGWZ0lQJxBoUO 0UPIQSObxKT1NGVVKRYNOT RUxTLCBccGFyICAgICAgIC BCT99IYSYKCZ2BZAkGLLtt BLeWJ5CBQ60KIHGxqoshLX JcZnMyMiBTcmkgQmhhcmF0 cCksH9T8gXCzRSFXGxIKBB AbpbjjFCA0l1vtzLKqKXUv jJEmZeNoJTTqAOQtr9utTT VmbGFuZzEwMzNcZnRuYmpc eFQuRZYdPuVed6owv930sY Ttw4mkFUJiLiI0bJMmKAHg uFelxxv6bSuzYeJdQRAiw0 lzcyBcZmNoYXJzZXQwIEFy vYFyS353NOKqVMhgg1gtd8 FoMJQcxKBxu9B5JEQTHLzs NpLoZ483c9ddg7maheSzzM N5ODEnKQN9OGoextEqxeR8 XAxmyDNwXiD8DLecxjNeVP tyzcLpfmDsDmu3NGWgE269 IAM0hWkje8osANN7PMToUI KtYezoYl4pkOZeB359BAUo HHJKDVFyiWd4JFPknaEpef YavAFFr235O169y7ztNQFb vlYehPaGdkejk7xcY568ND BhcGVydzEyMjQwXHBhcGVy mYQ0OPNhAC4osfbpUDglIJ kjYANieyZ6UHOtgJUcJ5Ba AZKeTM1pnwfuPOM2MNkkQY MtDOG4HpWgRQEen6Koaph4 NfOfqx3bwd82HFX4b4ZrvG lqHDK6KMY4VgEwTd2vlNTo IKUdCH0lAhBcoSPbXQZsyg 13sTqhOZzhowTmyV7qDjDa UYLjrAMbCENmHJ0zlXQuYR CidB8wkeekTYPtNqWxkins UHEhaSwhjaOdZy7ebFdiYB U7XOqgA5hqhC7qWxO1DRwp H7jlvZ2bQPl6QZnmdBK9AW BszM8rZW3ypbsxv9kcEXrz PValAKCuwhY2ffR6VRXyeW DgV1BerO4yLNJpSL5ppfbz f4vfNMK0DDchANPlJNK2Xi BoCUXqw2Wnurz6LaDod7Xz hWBgJUerF32qv343GTSjbt NbU0otaFQxibdblUJylrey NTowxhJ9FYTdIVJuDMmrTP YxXGZzMjBcbGFuZzEwMzNc aGljaFxmMVxkYmNoXGYxXG eiY2bwGuJkN4WqLGLgPhRv wNTuWJatuFP6EJMeSWHzj2 4njDi2AMEsqzxun2EiCDFz vIUpdGSafK0ckbRxq8wtHX BbUYZuCCCjN5EfPGT6jKIz VIUcwYRwuCM3TD8hbiOmJC 1hZGUgYnkgcmVzaWRlbnRz ZIEtBUxnl6trIM9uPESosL egmU2ybJM9WJMwx5sdgTMr cDKvb4olk6TsmaRiTYeeFP YpNDlgCGKjPDElYG6kBGEi wYPojeTok2F1CehhuSDaap riJoaspaN7UQdvwcgrKWBk LKkyI6zbVgZaSMKhtLehDv wbu0ZzMSQxZIXkYuqjlLXg fX0= Clinical Information 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] 3837268523) Gross Description (test l5xxxTXkRGCvkYJIIUQwRw code = 0588654396) epjrAoHNAvrJPqA6Tjgsdr YVmuYN3jPW1mpEftcLKcjB AzTB8YFMWwTvVtMQPhuBRx scDcGzStBIQvzJVkqJP7QV TpVH4acwmpTVijADcsGICe jwY8YHWyeHSuG0PgIRGgVW 3dtjpwAZB6VZilqK9pajKA AyjpXr4tlKRuyOegGuHjBw NoYXJzZXQwXGZuaWwgQXJp PHc4lS6HTylmJQX6AXONUl pgMWHoPX0Xk7bjOXZpjIPb LMQ7NAlnyQWhPPPoYATgQP k3SZJuWNtjoIJjIT5fvMgo XxqvdHuap8YjqDApYGjxKF QeCQPiZRyeZJQhII4FOsDx WCzLNDLuVRNkWsJ2QLb3MF SNDxSfCdAsTHo2Oxl8ViWx VHd4TAd5ZFgVFaHoKCZ5Yb UlRdL3QGQ8DURmDNmbhQZx IFxcZiBBcmlhbCBcXGZzID EqFGqfSoxvGUvbF55tmSzk pN0oBxYlOLUULiUWKRYATT 0gcLJfEY2OIZYeTEmwYRNb qAEKDZG2JQ5mWTPFFvbioV PaVTQpwWbiWTxmzD6jZC9R UNp6xsJgWVImVmJrI5KrK8 aeAM9zTATcsaWxSLUpcOXn ZCBmcmVzaCBhbmQgbGFiZW iwSVW7rDJvAWTcFVYiDRPp IY52N7WctgRyFZdoPLmfed QiSeKzAWVczPY9lSazzZmk j8D4q785HGTsuWRoyTRsZP 7sIMTyk5pzjXKlSuEfufTh W92xp0crvVVku3MrPHH6MC 6olUtktfWnELsjRH81KM2v DPCvLUdyVNVkd8RlZJn9Hq OyF01drH6jqUZzT3TgZMO5 IDQuMiBjbSBpbiBkaWFtZX Xeyndyb3q5kQSsBHU5w99y JTcwMrikbNDcYrYzX17jHR ueveIbUGkbiWvoIZB2tQei JOGcdQLsVcI9WF3bSgWgj2 2gu9otvrMqpsEaOELsyCZy jRCyTDWim1UznLonztNwET WfcH5jYQUfCQUnkCZsxZ4o biBpcyBvcGVuIHRvIHJldm ZqtHD4XI3dtVyjrgJnjz9l r8r0PKJyztWuIJRiPPAwGN LhgISvc6ZnQVIPQQMiSIEr kvEelXu4NNKnSSC4jN4mfm UsslEkv3VblDa0nVDvQNck EVWuMFOmwf39Z1qhVJIvJJ BhciANClxwYXIgDQpBMTog rCCkbSnvSPbpfQNyZ2xrAV LfMCHgPKBfdcJkwQa2WULc wWBjNS3WGJC9YVF5y56iSV XhNWDwDRSabkDcmCw1IBav RFQxEIwKCyguFd32BIxcm4 BikUlirjVejxLgJV27ITKv biIdqIPpDW0YSIPyspZMUz W2yNxsOFt4UCW6AOohFSY7 nM5pz4ajd8BsFtSUs4Uwy6 KogsIuc9L0ZRDilNpypQ0q QR0xaqxyOSJzCTV1p8NzDQ MOLWvbkIxufG7sKNUfO16q c2KXf4ElBLRhVJxeh6vcjZ rep4EqvQSuBRwzQRQkkPGy VLuwxM6pUyDll5pfhRn4YB gmefT0LRNmsj5UTisozS4x WsBer3ccmBk6AQOZVdbtzf N0w5azoPngm3CwxETuDU5R Cn0= Disclaimer (test code = v8qukITzKTEmw0ubBXWegC [id number]) FuZzEwMzNcZnRuYmpcdWMx SGhivlRgLFxuu6VkD1KkIg AwMFxhbnNpXGRlZmxhbmcx TSDhYNP3lxDnIZPcVRflWG JwNPsmDa1kcSKngWnpBkIh AGAfl5bvjeAREPikIuHpL3 98QGOmBJcpb6lgc0ZsTZMj tXHvc9I8GHNAlmsogXc7rE riE50hd0J3RappE0dpVRGe KUPpG8YtHE4kDQOjBzs0UD O0JVD3EPBxJHDnP3AbPM1n HNOukUDnQYi3a3hfrMljJD PqNJR7y7hsYCedzmOuAW0y ti3grOd9x4ltedJvHMExGW GmaVFPOXNbE4KrtLufMy3a hSt1kHfzJdxnBEL7Fdo4EF 7bgw63wff3eUhnAIBstedb YmP3KWevQYYiqtmnNLd7ES hxXCVhdDQ4XONqbBXpF2Mp OSCqKD4rbek3CLO4PBugCQ HjCjJ1HEFqzHViLOPdrQlb BInms183ZUE0MhWwSF9pH9 Tyq1P6sY9phVUkZGZigGMx FcGbNXCdue1boVHpCEhzp9 YhMJB4pwB8lMExvDNcECEs NC81Dprry9HeVqtbr7AuG7 6isAX0NScws7wmXK8iTyC2 wtDxZOucd3tsxC0xLzV8AS gbRY8pUA8vPPNhkH6ykamw XHBnYnJkcmhlYWRccGdicm RwDw3szMkfESX5SPipS1xy wB5pDmP9DAosO9pzjT1lLW i2AFoqxUD5POBtqD1xMW8v gucuq1dpKPwtQYsoZSMpvt V0xyP2WPWzzMCeT6FpdL9u TOYeYD3tqcdij1qwMJC8XJ exLUToYNP9WuVwQAFgr2Xj tfz0BaZgy1OuvUEpMMxyC9 2bp204PTUpzzPqZ5irrMRq skwvuNGvivapOAckcsG1IQ NwxqYdl6PcSAGcWYY4MPbk KGirzTHxXTJcsIwiq2bvF0 RscGFyXHBsYWluXGYxXGZz MjBcbGFuZzEwMzNcaGljaF pcWRqeJvUeSUDcJOvbM8tg WuPaH2VsSHBgUxWttFThZ3 ggVGhpcyByZXBvcnQgbWF5 XHtvL4b1SCKmyqQpaZd9mx GbVuKnBWOrFDQ0ILnakSHw WBSpw0UrzwknsRZfYs4zfC DpIKAulM5oAAUqASObEBft RW3rgGq0OLQUdWQejSSvRp EXPNGxKT54mfPxFLYEtblc r3E4IGsiZTKeq2LqxSItI0 ezn4YwLYMqk10bJH4zk7M4 q6jpZBO7HT7dj5FiDMXygM XuhUIeFHOnz4Oxtwaou9Ge DCNhxwCnp0YrBXXdqxAekZ ExNKKntlEkfx7prdDuFJPf LCAyA4DtdhjqfNzmusSoCP Hlgn7bsyYlIAF8FCYZPJMq NYDne0UvcC0kyRFMUHW4rS Mroh3dqxKXjGBcRVQwkq20 AHWzNT7vY4ryICArGBYecy VasSMcb0KdSKSwdBJ1pEUg UE8ZCjGUr77fLTEvLJFMdg UdFIRavLtwgQV9scN4mZ0e IChGREEpLlx+IFRoZSBGRE DbLA6feqAay0TzieYmpFpd BXDbqCLpb8VpzTEey3JcpR jfv4NvtFKvqIFdLK1dXIFk clxwYXIgVVRNQiBMYWJvcm N6w9FeLDRdYTXhNYZ4eRih sdp9CQHccG5kZEJbQ3sqeb chUTsqSEFdy3RkbA6obTYQ kBLkx0KhmEVmnTYFcQXrXY 4lefIeUXmGNCuJWQO2kiXk ARCay4TaNEqcE5xhK05pfN crfQf8gPZ0IVR6qC4kYry+ IFxwYXJccGFyIEFwcHJvcH QaHGWagNaszgGbI2YzdqJx gZ2idRLfrtYkIU4vUU4qC8 S5cUFuLZHygxLad6hbKTii dmUgYmVlbiByZXZpZXdlZC Fke4IrGMwlYET5JWejuqQi bmNsdWRpbmcgSCZFLCBTcG CdaGOdPVB7TVhsltOphvYj DH7upJ1kyAnliP3jqXKxsN J1ulbiFTKaCGAhhMgxSWPt MS7zsFXqLDRedySVwVfkwQ NcpV6xO7LqUITbCLYsdv7b LOXkrK4uJYweb7ExnkroYS SmLAWdIYHeslLflu6pSIMu qBSWNF2GLCkulUZjc4Ubft AjA4wKXDP9VXRuHxHuGild TPRhkEWbhMUbTGRjzb11JQ GngR9ipUogIJGvhU8kpJ5z aFbogK7iClUoHvAzFZcpKY 5oPCIzE9nbpPFpKQUuCMGt E6wlSqSyoX0wdCgcGQjbDj YkEwKwIKzsXHU4aW== Embedded Images (test code = 4435384557) [facility] [id number] 09:01:06 Test Item Value Reference Range Interpretation Comments Blood Culture-Aerobic No organisms No growth Previo us (test code = 30370-5) isolated prelim inary verified result was Culture In Progress on 08/31/2021 at 060 1 CSTPrevious preliminary verified result was No growth a t 24 hours on 09/01/2021 at 030 1 CSTPrevious preliminary verified result was No growth a t 48 hours on 09/02/2021 at 03 01 CSTPrevious preliminary verified result was No growth a t 72 hours on 09/03/2021 at 03 01 [employer] Blood No organisms No growth Previous Culture-Anaerobic isolated preliminar y (test code = 55917-8) verifi ed result was Culture In Progress on 08/31/2021 at 060 1 CSTPrevious preliminary verified result was No growth a t 24 hours on 09/01/2021 at 030 1 CSTPrevious preliminary verified result was No growth a t 48 hours on 09/02/2021 at 03 01 CSTPrevious preliminary verified result was No growth a t 72 hours on 09/03/2021 at 03 01 [employer] Lab Interpretation Normal (test code = 18266-0) [facility] METABOLIC PANEL (NA, K, CL, CO2, GLUCOSE, BUN, CREATININE, CA)2021-09-04 13:22:54 Test Item Value Reference Range Interpretation Comments NA (test code = 132 mmol/L 135-145 L 9252562682) K (test code = 4.3 mmol/L 3.5-5.0 9646809111) CL (test code = 104 mmol/L 98-108 6568351070) CO2 TOTAL (test code = 23 mmol/L 23-31 0817406070) AGAP (test code = 2-16 1072749946) BUN (test code = 15 mg/dL 7-23 6020447365) GLUCOSE (test code = 96 mg/dL 70-110 9623236391) CREATININE (test code = 1.42 mg/dL 0.60-1.25 H 1969261240) CALCIUM (test code = 8.7 mg/dL 8.6-10.6 8865845857) eGFR (test code = mL/min/1.73m2 9854587088) GILBERTO (test code = GILBERTO) Association of [...] tests). Lab Interpretation Abnormal (test code = 16064-3) [facility] METABOLIC PANEL (NA, K, CL, CO2, GLUCOSE, BUN, CREATININE, CA)2021-09-04 13:22:54 Test Item Value Reference Range Interpretation Comments NA (test code = 132 mmol/L 135-145 L 9570857344) K (test code = 4.3 mmol/L 3.5-5.0 1742226733) CL (test code = 104 mmol/L 98-108 8598510486) CO2 TOTAL (test code = 23 mmol/L 23-31 4123505631) AGAP (test code = 2-16 3852237792) BUN (test code = 15 mg/dL 7-23 6977679001) GLUCOSE (test code = 96 mg/dL 70-110 1336939348) CREATININE (test code = 1.42 mg/dL 0.60-1.25 H 1584878067) CALCIUM (test code = 8.7 mg/dL 8.6-10.6 2349882788) eGFR (test code = mL/min/1.73m2 1464752485) GILBERTO (test code = GILBERTO) Association of [...] tests). Lab Interpretation Abnormal (test code = 44260-9) [facility] CULTURE [id number] 17:16:36 Test Item Value Reference Range Interpretation Comments Blood Culture Coagulase negative Addition al Workup (test Staphylococcus work-up perfo rmed code = 600-7) only per reque st. Culture plate(s ) will be saved until this date : - 09/08/21 Gram stain Isolated from aerobic (test code = bottle Gram positive 664-3) cocci in [facility] CULTURE [id number] 17:16:36 Test Item Value Reference Range Interpretation Comments Blood Culture Coagulase negative Addition al Workup (test Staphylococcus work-up perfo rmed code = 600-7) only per reque st. Culture plate(s ) will be saved until this date : - 09/08/21 Gram stain Isolated from aerobic (test code = bottle Gram positive 664-3) cocci in [facility] Culture - Peripheral Vein # 17:16:26 Test Item Value Reference Range Interpretation Comments Blood Culture-Aerobic Culture positive. No growth AA P revious (test code = 02280-9) See Blood Culture p reliminary Workup for verified result additional was Culture In information. Progress on 08/31/2021 at 060 1 [employer] Blood No organisms No growth Previous Culture-Anaerobic isolated preliminar y (test code = 26957-7) verifi ed result was Culture In Progress on 09/01/2021 at 012 7 [employer] Lab Interpretation Abnormal (test code = 18505-3) [facility] # [id number] 17:16:26 Test Item Value Reference Range Interpretation Comments Blood Culture-Aerobic Culture positive. No growth AA P revious (test code = 65711-5) See Blood Culture p reliminary Workup for verified result additional was Culture In information. Progress on 08/31/2021 at 060 1 [employer] Blood No organisms No growth Previous Culture-Anaerobic isolated preliminar y (test code = 72534-7) verifi ed result was Culture In Progress on 09/01/2021 at 012 7 [employer] Lab Interpretation Abnormal (test code = 75946-4) [facility] (NA, K, CL, CO2, GLUCOSE, BUN, CREATININE, CA)2021-09-03 12:16:04 Test Item Value Reference Range Interpretation Comments NA (test code = 130 mmol/L 135-145 L 6316838835) K (test code = 4.1 mmol/L 3.5-5.0 1711355128) CL (test code = 103 mmol/L 98-108 7333558622) CO2 TOTAL (test code = 21 mmol/L 23-31 L 9555941995) AGAP (test code = 2-16 8117846003) BUN (test code = 14 mg/dL 7-23 7713595086) GLUCOSE (test code = 90 mg/dL 70-110 1138804455) CREATININE (test code = 1.28 mg/dL 0.60-1.25 H 4535844325) CALCIUM (test code = 8.8 mg/dL 8.6-10.6 4604869667) eGFR (test code = mL/min/1.73m2 5674389576) GILBERTO (test code = GILBERTO) Association of [...] tests). Lab Interpretation Abnormal (test code = 41781-4) [facility] METABOLIC PANEL (NA, K, CL, CO2, GLUCOSE, BUN, CREATININE, CA)2021-09-03 12:16:04 Test Item Value Reference Range Interpretation Comments NA (test code = 130 mmol/L 135-145 L 4543878792) K (test code = 4.1 mmol/L 3.5-5.0 9853559545) CL (test code = 103 mmol/L 98-108 2431292144) CO2 TOTAL (test code = 21 mmol/L 23-31 L 1661369594) AGAP (test code = 2-16 2083790658) BUN (test code = 14 mg/dL 7-23 2148618543) GLUCOSE (test code = 90 mg/dL 70-110 9507477188) CREATININE (test code = 1.28 mg/dL 0.60-1.25 H 9134849151) CALCIUM (test code = 8.8 mg/dL 8.6-10.6 9166701862) eGFR (test code = mL/min/1.73m2 2234040248) GILBERTO (test code = GILBERTO) Association of [...] tests). Lab Interpretation Abnormal (test code = 10670-2) [facility] WITHOUT [id number] 11:53:39 Test Item Value Reference Range Interpretation Comments WBC (test code = 6690-2) See_Comment [A utomated message] The system [employer] generated this result transmit dain reference range : 4.20 - 10.70 10*3/?L. The reference range was not used to interpret this result as normal/abnormal . RBC (test code = 789-8) See_Comment L [Au tomated message] The system [employer] generated this result transmit dain reference range [...] 777-3) See_Comment [Au tomated message] The system [employer] generated this result transmit dain reference range : 150 - 328 10*3/?L. The reference range was not used to interpret this result as normal/abnormal . MPV (test code = 10.1 fL 9.8-13.0 77609-8) RDW-CV (test code = 13.5 % 12.1-15.4 788-0) RDW-SD (test code = 44.6 fL 38.5-51.6 22010-0) NRBC x10^3 (test code = <0.01 See_Comment [Au tomated message] 7306102477) The system [employer] generated this result transmit dain reference range : 10*3/?L. The reference range was not used to interpret this result as normal/abnormal . NRBC/100 WBC (test code See_Comment [Au tomated message] = 0447577488) The system [facility] generated this result transmit dain reference range : 0.0 - 10.0 /100 WBC s. The reference r meredith was not used to interpret this result as normal/abnormal . IPF % (test code = 9799650755) Lab Interpretation (test Abnormal code = 95160-9) [facility] WITHOUT [id number] 11:53:39 Test Item Value Reference Range Interpretation Comments WBC (test code = 6690-2) See_Comment [A utomated message] The system [facility] generated this result transmit dain reference range : 4.20 - 10.70 10*3/?L. The reference range was not used to interpret this result as normal/abnormal . RBC (test code = 789-8) See_Comment L [Au tomated message] The system [facility] generated this result transmit dain reference [...] 777-3) See_Comment [Au tomated message] The system [employer] generated this result transmit dain reference range : 150 - 328 10*3/?L. The reference range was not used to interpret this result as normal/abnormal . MPV (test code = 10.1 fL 9.8-13.0 61593-8) RDW-CV (test code = 13.5 % 12.1-15.4 788-0) RDW-SD (test code = 44.6 fL 38.5-51.6 41851-9) NRBC x10^3 (test code = <0.01 See_Comment [Au tomated message] 7820280672) The system [employer] generated this result transmit dain reference range : 10*3/?L. The reference range was not used to interpret this result as normal/abnormal . NRBC/100 WBC (test code See_Comment [Au tomated message] = 7654233050) The system [employer] generated this result transmit dain reference range : 0.0 - 10.0 /100 WBC s. The reference r meredith was not used to interpret this result as normal/abnormal . IPF % (test code = 6124429468) Lab Interpretation (test Abnormal code = 37945-5) [facility] METABOLIC PANEL (NA, K, CL, CO2, GLUCOSE, BUN, CREATININE, CA)2021-09-02 12:06:01 Test Item Value Reference Range Interpretation Comments NA (test code = 132 mmol/L 135-145 L 2615833231) K (test code = 4.4 mmol/L 3.5-5.0 5668732838) CL (test code = 106 mmol/L 98-108 9580417637) CO2 TOTAL (test code = 22 mmol/L 23-31 L 4737783728) AGAP (test code = 2-16 6107705370) BUN (test code = 16 mg/dL 7-23 7500148435) GLUCOSE (test code = 83 mg/dL 70-110 2842743062) CREATININE (test code = 1.33 mg/dL 0.60-1.25 H 1231590681) CALCIUM (test code = 8.8 mg/dL 8.6-10.6 6899135356) eGFR (test code = mL/min/1.73m2 6958388374) GILBERTO (test code = GILBERTO) Association of [...] tests). Lab Interpretation Abnormal (test code = 55903-0) [facility] METABOLIC PANEL (NA, K, CL, CO2, GLUCOSE, BUN, CREATININE, CA)2021-09-02 12:06:01 Test Item Value Reference Range Interpretation Comments NA (test code = 132 mmol/L 135-145 L 2410922628) K (test code = 4.4 mmol/L 3.5-5.0 6661614437) CL (test code = 106 mmol/L 98-108 4049166670) CO2 TOTAL (test code = 22 mmol/L 23-31 L 7827009739) AGAP (test code = 2-16 4777749927) BUN (test code = 16 mg/dL 7-23 4917177796) GLUCOSE (test code = 83 mg/dL 70-110 1634016874) CREATININE (test code = 1.33 mg/dL 0.60-1.25 H 1858595447) CALCIUM (test code = 8.8 mg/dL 8.6-10.6 7981194636) eGFR (test code = mL/min/1.73m2 3869307986) GILBERTO (test code = GILBERTO) Association of [...] tests). Lab Interpretation Abnormal (test code = 48805-2) [facility] (NA, K, CL, CO2, GLUCOSE, BUN, CREATININE, CA)2021-09-01 21:55:22 Test Item Value Reference Range Interpretation Comments NA (test code = 130 mmol/L 135-145 L 9734817435) K (test code = 4.2 mmol/L 3.5-5.0 5570823769) CL (test code = 103 mmol/L 98-108 0251465582) CO2 TOTAL (test code = 20 mmol/L 23-31 L 9040292983) AGAP (test code = 2-16 6746461269) BUN (test code = 20 mg/dL 7-23 5580084957) GLUCOSE (test code = 106 mg/dL 70-110 6272507120) CREATININE (test code = 1.51 mg/dL 0.60-1.25 H 6862001383) CALCIUM (test code = 8.5 mg/dL 8.6-10.6 L 2051928625) eGFR (test code = mL/min/1.73m2 4496279993) GILBERTO (test code = GILBERTO) Association of [...] tests). Lab Interpretation Abnormal (test code = 14728-9) [facility] METABOLIC PANEL (NA, K, CL, CO2, GLUCOSE, BUN, CREATININE, CA)2021-09-01 21:55:22 Test Item Value Reference Range Interpretation Comments NA (test code = 130 mmol/L 135-145 L 0595959764) K (test code = 4.2 mmol/L 3.5-5.0 7663121582) CL (test code = 103 mmol/L 98-108 8261068274) CO2 TOTAL (test code = 20 mmol/L 23-31 L 1777771092) AGAP (test code = 2-16 8507249317) BUN (test code = 20 mg/dL 7-23 6444645361) GLUCOSE (test code = 106 mg/dL 70-110 4841064140) CREATININE (test code = 1.51 mg/dL 0.60-1.25 H 7535757302) CALCIUM (test code = 8.5 mg/dL 8.6-10.6 L 0298572358) eGFR (test code = mL/min/1.73m2 3391324112) GILBERTO (test code = GILBERTO) Association of [...] tests). Lab Interpretation Abnormal (test code = 48643-8) [facility] POSITIVE BLOOD PATHOGENS DNA [id number] 10:31:32 Test Item Value Reference Range Interpretation Comments Coagulase Negative Positive Negative, See A Staphylococcus (test Comment/Narrative code = 87469-6) GILBERTO (test code = GILBETRO) Coagulase negative Staphylococcus (CoNS) detected by DNA [...] contact the Antimicrobial Stewardship Program with questions.Pager: ?[phone] Testing included eleven identification and three resistance marker targets. Lab Interpretation Abnormal (test code = 97570-3) [facility] POSITIVE BLOOD PATHOGENS DNA [id number] 10:31:32 Test Item Value Reference Range Interpretation Comments Coagulase Negative Positive Negative, See A Staphylococcus (test Comment/Narrative code = 70881-3) GILBERTO (test code = GILBERTO) Coagulase negative [...] contact the Antimicrobial Stewardship Program with questions.Pager: ?[phone] Testing included eleven identification and three resistance marker targets. Lab Interpretation Abnormal (test code = 69386-5) [facility] METABOLIC PANEL (NA, K, CL, CO2, GLUCOSE, BUN, CREATININE, CA)2021-09-01 08:38:47 Test Item Value Reference Range Interpretation Comments NA (test code = 130 mmol/L 135-145 L [id number]) K (test code = 4.0 mmol/L 3.5-5.0 8800516598) CL (test code = 105 mmol/L 98-108 7325985564) CO2 TOTAL (test code = 20 mmol/L 23-31 L 1836432540) AGAP (test code = 2-16 4687409559) BUN (test code = 21 mg/dL 7-23 7239929304) GLUCOSE (test code = 88 mg/dL 70-110 6770746703) CREATININE (test code = 1.31 mg/dL 0.60-1.25 H 8343247468) CALCIUM (test code = 8.5 mg/dL 8.6-10.6 L 6575869365) eGFR (test code = mL/min/1.73m2 9853849293) GILBERTO (test code = GILBERTO) Association of [...] tests). Lab Interpretation Abnormal (test code = 83959-9) [facility] METABOLIC PANEL (NA, K, CL, CO2, GLUCOSE, BUN, CREATININE, CA)2021-09-01 08:38:47 Test Item Value Reference Range Interpretation Comments NA (test code = 130 mmol/L 135-145 L 0574188326) K (test code = 4.0 mmol/L 3.5-5.0 6018657327) CL (test code = 105 mmol/L 98-108 3781258738) CO2 TOTAL (test code = 20 mmol/L 23-31 L 1799527630) AGAP (test code = 2-16 5631632644) BUN (test code = 21 mg/dL 7-23 0889227629) GLUCOSE (test code = 88 mg/dL 70-110 9264173508) CREATININE (test code = 1.31 mg/dL 0.60-1.25 H 8901145117) CALCIUM (test code = 8.5 mg/dL 8.6-10.6 L 9548486320) eGFR (test code = mL/min/1.73m2 6377665859) GILBERTO (test code = GILBERTO) Association of [...] tests). Lab Interpretation Abnormal (test code = 42277-7) [facility] WITH [id number] 08:13:43 Test Item Value Reference Range Interpretation Comments WBC (test code = See_Comment [Automated 4917-2) message] The sy stem which generated this result transmitted reference range : 4.20 - 10.70 10*3/?L. The reference range was not used to interpret this result as normal/abnormal . RBC (test code = See_Comment L [Automated 596-2) message] The sy stem which generated this [...] RDW-SD (test code = 43.0 fL 38.5-51.6 97920-1) RDW-CV (test code = 13.7 % 12.1-15.4 788-0) PLT (test code = See_Comment [Automated 777-3) message] The sy stem which generated this result transmitted reference range : 150 - 328 10*3/ ?L. The reference r meredith was not used to interpret this result as normal/abnormal . MPV (test code = 9.9 fL 9.8-13.0 41411-7) NRBC/100 WBC (test See_Comment [Automat ed code = 3235492973) message] The system which generated this result transmitted reference range : 0.0 - 10.0 /100 WBCs. The refer ence range was not u sed to interpret th is result as normal/abnormal . NRBC x10^3 (test code <0.01 See_Comment [Auto mated = 5160520051) message] The s ystem which generated this result transmitted reference range : 10*3/?L. The reference range was not used to interpret this result as normal/abnormal . GRAN MAT (NEUT) % 48.2 % (test code = 770-8) IMM GRAN % (test code 0.40 % = 9407268063) LYMPH % (test code = 39.5 % 736-9) MONO % (test code = 9.0 % 5905-5) EOS % (test code = 2.3 % 713-8) BASO % (test code = 0.6 % 706-2) GRAN MAT x10^3(ANC) 2.35 10*3/uL 1.99-6.95 (test code = 6957925295) IMM GRAN x10^3 (test <0.03 0.00-0.06 code = 4353833102) LYMPH x10^3 (test code 1.93 10*3/uL 1.09-3.23 = 731-0) MONO x10^3 (test code 0.44 10*3/uL 0.36-1.02 = 742-7) EOS x10^3 (test code = 0.11 10*3/uL 0.06-0.53 711-2) BASO x10^3 (test code 0.03 10*3/uL 0.01-0.09 = 704-7) Lab Interpretation Abnormal (test code = 83062-7) [facility] WITH [id number] 08:13:43 Test Item Value Reference Range Interpretation Comments WBC (test code = See_Comment [Automated 9790-2) message] The sy stem which generated this result transmitted reference range : 4.20 - 10.70 10*3/?L. The reference range was not used to interpret this result as normal/abnormal . RBC (test code = See_Comment L [Automated 429-8) message] The sy stem which generated this [...] RDW-SD (test code = 43.0 fL 38.5-51.6 09909-2) RDW-CV (test code = 13.7 % 12.1-15.4 788-0) PLT (test code = See_Comment [Automated 777-3) message] The sy stem which generated this result transmitted reference range : 150 - 328 10*3/ ?L. The reference r meredith was not used to interpret this result as normal/abnormal . MPV (test code = 9.9 fL 9.8-13.0 92312-4) NRBC/100 WBC (test See_Comment [Automat ed code = 4401625520) message] The system which generated this result transmitted reference range : 0.0 - 10.0 /100 WBCs. The refer ence range was not u sed to interpret th is result as normal/abnormal . NRBC x10^3 (test code <0.01 See_Comment [Auto mated = 9695967988) message] The s ystem which generated this result transmitted reference range : 10*3/?L. The reference range was not used to interpret this result as normal/abnormal . GRAN MAT (NEUT) % 48.2 % (test code = 770-8) IMM GRAN % (test code 0.40 % = 8326558888) LYMPH % (test code = 39.5 % 736-9) MONO % (test code = 9.0 % 5905-5) EOS % (test code = 2.3 % 713-8) BASO % (test code = 0.6 % 706-2) GRAN MAT x10^3(ANC) 2.35 10*3/uL 1.99-6.95 (test code = 5539600242) IMM GRAN x10^3 (test <0.03 0.00-0.06 code = 7554622274) LYMPH x10^3 (test code 1.93 10*3/uL 1.09-3.23 = 731-0) MONO x10^3 (test code 0.44 10*3/uL 0.36-1.02 = 742-7) EOS x10^3 (test code = 0.11 10*3/uL 0.06-0.53 711-2) BASO x10^3 (test code 0.03 10*3/uL 0.01-0.09 = 704-7) Lab Interpretation Abnormal (test code = 98171-5) [facility] [id number] 06:37:20 Test Item Value Reference Range Interpretation Comments MAGNESIUM (test code = 3962799124) 1.9 mg/dL 1.7-2.4 Lab Interpretation (test code = Normal 30595-0) [id number] 06[facility]37:20 Test Item Value Reference Range Interpretation Comments MAGNESIUM (test code = 8692267875) 1.9 mg/dL 1.7-2.4 Lab Interpretation (test code = Normal 49892-4) [facility] METABOLIC PANEL (NA, K, CL, CO2, GLUCOSE, BUN, CREATININE, CA)2021-09-01 02:46:47 Test Item Value Reference Range Interpretation Comments NA (test code = 132 mmol/L 135-145 L 4987779200) K (test code = 4.0 mmol/L 3.5-5.0 0546714436) CL (test code = 102 mmol/L 98-108 7107330035) CO2 TOTAL (test code = 21 mmol/L 23-31 L 8274048357) AGAP (test code = 2-16 4879402956) BUN (test code = 24 mg/dL 7-23 H 0530838516) GLUCOSE (test code = 95 mg/dL 70-110 8496174292) CREATININE (test code = 1.40 mg/dL 0.60-1.25 H 2653112648) CALCIUM (test code = 8.6 mg/dL 8.6-10.6 8304489926) eGFR (test code = mL/min/1.73m2 7004503901) GILBERTO (test code = GILBERTO) Association of [...] tests). Lab Interpretation Abnormal (test code = 16256-5) [facility] METABOLIC PANEL (NA, K, CL, CO2, GLUCOSE, BUN, CREATININE, CA)2021-09-01 02:46:47 Test Item Value Reference Range Interpretation Comments NA (test code = 132 mmol/L 135-145 L 5302427897) K (test code = 4.0 mmol/L 3.5-5.0 7967676677) CL (test code = 102 mmol/L 98-108 0858898201) CO2 TOTAL (test code = 21 mmol/L 23-31 L 4009077199) AGAP (test code = 2-16 9456665883) BUN (test code = 24 mg/dL 7-23 H 7034410207) GLUCOSE (test code = 95 mg/dL 70-110 2982855572) CREATININE (test code = 1.40 mg/dL 0.60-1.25 H 4808624578) CALCIUM (test code = 8.6 mg/dL 8.6-10.6 5821719893) eGFR (test code = mL/min/1.73m2 5824614375) GILBERTO (test code = GILBERTO) Association of [...] tests). Lab Interpretation Abnormal (test code = 07733-6) [facility] Acid Whole [id number] 12:49:48 Test Item Value Reference Range Interpretation Comments LACTIC ACID (test code = 2.02 mmol/L 0.50-2.20 QUE S 8507351967) Lab Interpretation (test code = Normal 94500-3) [facility] Acid Whole [id number] 12:49:48 Test Item Value Reference Range Interpretation Comments LACTIC ACID (test code = 2.02 mmol/L 0.50-2.20 QUE S 1355571906) Lab Interpretation (test code = Normal 93287-7) [facility] METABOLIC PANEL (NA, K, CL, CO2, GLUCOSE, BUN, CREATININE, CA)2021-08-31 12:29:06 Test Item Value Reference Range Interpretation Comments NA (test code = 129 mmol/L 135-145 L 8875092004) K (test code = 3.6 mmol/L 3.5-5.0 5780601572) CL (test code = 101 mmol/L 98-108 7777140773) CO2 TOTAL (test code = 18 mmol/L 23-31 L 3877839631) AGAP (test code = 2-16 3894070824) BUN (test code = 35 mg/dL 7-23 H 3614713259) GLUCOSE (test code = 97 mg/dL 70-110 8225799770) CREATININE (test code = 1.58 mg/dL 0.60-1.25 H 0958438876) CALCIUM (test code = 8.3 mg/dL 8.6-10.6 L 0452036657) eGFR (test code = mL/min/1.73m2 2660686697) GILBERTO (test code = GILBERTO) Association of [...] tests). Lab Interpretation Abnormal (test code = 32582-3) [facility] METABOLIC PANEL (NA, K, CL, CO2, GLUCOSE, BUN, CREATININE, CA)2021-08-31 12:29:06 Test Item Value Reference Range Interpretation Comments NA (test code = 129 mmol/L 135-145 L 4292904982) K (test code = 3.6 mmol/L 3.5-5.0 0826937335) CL (test code = 101 mmol/L 98-108 9830463952) CO2 TOTAL (test code = 18 mmol/L 23-31 L 4868684668) AGAP (test code = 2-16 5680883550) BUN (test code = 35 mg/dL 7-23 H 9687587733) GLUCOSE (test code = 97 mg/dL 70-110 7082462649) CREATININE (test code = 1.58 mg/dL 0.60-1.25 H 4107025649) CALCIUM (test code = 8.3 mg/dL 8.6-10.6 L 7631452905) eGFR (test code = mL/min/1.73m2 4121150996) GILBERTO (test code = GILBERTO) Association of [...] tests). Lab Interpretation Abnormal (test code = 22779-1) [facility]IMULATING [id number] 07:42:44 Test Item Value Reference Range Interpretation Comments TSH (test code = See_Comment [Automated message] 2810471050) The system [employer] generated this result transmitted ref erence range: 0.45 - 4 .70 mIU/L. The refe rence range was not u sed to interpret this result as normal/abnor mal. Lab Interpretation (test Normal code = 23569-1) [facility] [id number] 07:42:44 Test Item Value Reference Range Interpretation Comments TSH (test code = See_Comment [Automated message] 7166833906) The system [employer] generated this result transmitted ref erence range: 0.45 - 4 .70 mIU/L. The refe rence range was not u sed to interpret this result as normal/abnor mal. Lab Interpretation (test Normal code = 35149-8) [facility] METABOLIC PANEL (NA, K, CL, CO2, GLUCOSE, BUN, CREATININE, CA)2021-08-31 07:40:43 Test Item Value Reference Range Interpretation Comments NA (test code = 129 mmol/L 135-145 L 4581531914) K (test code = 3.8 mmol/L 3.5-5.0 Slight 4327696712) hemolysis CL (test code = 102 mmol/L 98-108 7613747849) CO2 TOTAL (test code 18 mmol/L 23-31 L = 0448641425) AGAP (test code = 2-16 7118420560) BUN (test code = 46 mg/dL 7-23 H Slight 1271719818) hemolysis GLUCOSE (test code = 100 mg/dL 70-110 7740266397) CREATININE (test code 1.72 mg/dL 0.60-1.25 H = 9899452745) CALCIUM (test code = 8.5 mg/dL 8.6-10.6 L 4456725167) eGFR (test code = mL/min/1.73m2 1998290191) GILBERTO (test code = GILBERTO) Association of [...] tests). Lab Interpretation Abnormal (test code = 32073-9) [facility] METABOLIC PANEL (NA, K, CL, CO2, GLUCOSE, BUN, CREATININE, CA)2021-08-31 07:40:43 Test Item Value Reference Range Interpretation Comments NA (test code = 129 mmol/L 135-145 L 2316372819) K (test code = 3.8 mmol/L 3.5-5.0 Slight 5555631360) hemolysis CL (test code = 102 mmol/L 98-108 1893889357) CO2 TOTAL (test code 18 mmol/L 23-31 L = 9374805134) AGAP (test code = 2-16 2653894783) BUN (test code = 46 mg/dL 7-23 H Slight 6780780655) hemolysis GLUCOSE (test code = 100 mg/dL 70-110 0636134227) CREATININE (test code 1.72 mg/dL 0.60-1.25 H = 1387383083) CALCIUM (test code = 8.5 mg/dL 8.6-10.6 L 4891940220) eGFR (test code = mL/min/1.73m2 2616334205) GILBERTO (test code = GILBERTO) Association of [...] tests). Lab Interpretation Abnormal (test code = 97092-0) [facility] DistrictL[facility] Whole [id number] 07:08:01 Test Item Value Reference Range Interpretation Comments LACTIC ACID (test code = 1.96 mmol/L 0.50-2.20 QUE S 9952450399) Lab Interpretation (test code = Normal 41535-8) [facility] DistrictL[facility] Acid Whole [id number] 07:08:01 Test Item Value Reference Range Interpretation Comments LACTIC ACID (test code = 1.96 mmol/L 0.50-2.20 QUE S 0567532517) Lab Interpretation (test code = Normal 80663-0) [facility] DistrictOSMOLALITY, SERUM OR [id number] 06:33:43 Test Item Value Reference Range Interpretation Comments OSMOLALITY (test code = See_Comment [Au tomated message] 3228719976) The system [employer] generated this result transmitted ref erence range: 278 - 30 5 mOsm/kg. The re ference range was not u sed to interpret this result as normal/abnor mal. Lab Interpretation (test Normal code = 53662-1) [facility] DistrictOSMOLALITY, SERUM OR [id number] 06:33:43 Test Item Value Reference Range Interpretation Comments OSMOLALITY (test code = See_Comment [Au tomated message] 8037106140) The system [employer] generated this result transmitted ref erence range: 278 - 30 5 mOsm/kg. The re ference range was not u sed to interpret this result as normal/abnor mal. Lab Interpretation (test Normal code = 70114-8) [facility] [id number] 04:28:44 Test Item Value Reference Interpretation Comments Range TROPONIN I (test 0.003 ng/mL See_Comment [Automated code = 7717567417) message] The system which generated this result [...] biotin. Lab Interpretation Normal (test code = 07471-1) [facility] [id number] 04:28:44 Test Item Value Reference Interpretation Comments Range TROPONIN I (test 0.003 ng/mL See_Comment [Automated code = 6206661554) message] The system which generated this result [...] biotin. Lab Interpretation Normal (test code = 90377-3) [facility] METABOLIC PANEL (NA, K, CL, CO2, GLUCOSE, BUN, CREATININE, CA)2021-08-31 04:07:42 Test Item Value Reference Range Interpretation Comments NA (test code = 125 mmol/L 135-145 L 1477124144) K (test code = 4.1 mmol/L 3.5-5.0 Slight 7590352821) hemolysis CL (test code = 100 mmol/L 98-108 7507211912) CO2 TOTAL (test code 17 mmol/L 23-31 L = 1277880456) AGAP (test code = 2-16 2181340731) BUN (test code = 52 mg/dL 7-23 H Slight 5740249010) hemolysis GLUCOSE (test code = 94 mg/dL 70-110 1234512167) CREATININE (test code 1.77 mg/dL 0.60-1.25 H = 0568906067) CALCIUM (test code = 8.2 mg/dL 8.6-10.6 L 0351645659) eGFR (test code = mL/min/1.73m2 4731602853) GILBERTO (test code = GILBERTO) Association of [...] tests). Lab Interpretation Abnormal (test code = 53145-1) [facility] METABOLIC PANEL (NA, K, CL, CO2, GLUCOSE, BUN, CREATININE, CA)2021-08-31 04:07:42 Test Item Value Reference Range Interpretation Comments NA (test code = 125 mmol/L 135-145 L 4925847591) K (test code = 4.1 mmol/L 3.5-5.0 Slight 4599093122) hemolysis CL (test code = 100 mmol/L 98-108 9790217334) CO2 TOTAL (test code 17 mmol/L 23-31 L = 0896426757) AGAP (test code = 2-16 4482976712) BUN (test code = 52 mg/dL 7-23 H Slight 9627962842) hemolysis GLUCOSE (test code = 94 mg/dL 70-110 2134231527) CREATININE (test code 1.77 mg/dL 0.60-1.25 H = 2979313415) CALCIUM (test code = 8.2 mg/dL 8.6-10.6 L 9068805112) eGFR (test code = mL/min/1.73m2 5491241695) GILBERTO (test code = GILBERTO) Association of [...] tests). Lab Interpretation Abnormal (test code = 10015-3) [facility] DistrictTROP[facility]IN [id number] 00:22:59 Test Item Value Reference Interpretation Comments Range TROPONIN I (test 0.003 ng/mL See_Comment [Automated code = 4404316916) message] The system which generated this result [...] biotin. Lab Interpretation Normal (test code = 30314-2) [facility]N-TERMINAL [id number] 00:22:59 Test Item Value Reference Range Interpretation Comments NT-proBNP (test code 55 pg/mL See_Comment [Autom ated = 4695720812) message] The system which generated this result transmitted reference range : <=125. The reference range was not used to interpret this result as normal/abnormal . GILBERTO (test code = GILBERTO) Biotin has been reported to cause a negative bias, interpret results relative to patient's use of biotin. Lab Interpretation Normal (test code = 21946-8) [facility]TR[facility]IN [id number] 00:22:59 Test Item Value Reference Interpretation Comments Range TROPONIN I (test 0.003 ng/mL See_Comment [Automated code = 5971943844) message] The system which generated this result [...] biotin. Lab Interpretation Normal (test code = 77481-0) [facility]MINAL [id number] 00:22:59 Test Item Value Reference Range Interpretation Comments NT-proBNP (test code 55 pg/mL See_Comment [Autom ated = 4502206310) message] The system which generated this result transmitted reference range : <=125. The reference range was not used to interpret this result as normal/abnormal . GILBERTO (test code = GILBERTO) Biotin has been reported to cause a negative bias, interpret results relative to patient's use of biotin. Lab Interpretation Normal (test code = 59407-5) [facility]COMP. METABOLIC PAN[facility] (61405)2021-08-31 00:07:17 Test Item Value Reference Range Interpretation Comments NA (test code = 126 mmol/L 135-145 L 6686834450) K (test code = 4.3 mmol/L 3.5-5.0 Slight 8644168949) hemolysis CL (test code = 96 mmol/L 98-108 L 4770389560) CO2 TOTAL (test code 18 mmol/L 23-31 L = 8765051070) AGAP (test code = 2-16 4103783419) BUN (test code = 58 mg/dL 7-23 H Slight 1134116561) hemolysis GLUCOSE (test code = 108 mg/dL 70-110 2781103404) CREATININE (test code 2.11 mg/dL 0.60-1.25 H = 3760581942) TOTAL BILI (test code 0.7 mg/dL 0.1-1.1 = 6670000311) CALCIUM (test code = 9.2 mg/dL 8.6-10.6 6744210782) T PROTEIN (test code 7.6 g/dL 6.3-8.2 = 4770953003) ALBUMIN (test code = 4.9 g/dL 3.5-5.0 3175535876) ALK PHOS (test code = 96 U/L 34-122 Slight 8488380710) hemolysis ALTv (test code = 27 U/L 5-50 1742-6) AST(SGOT) (test code 46 U/L 13-40 H Slight = 5410262616) hemolysis eGFR (test code = mL/min/1.73m2 2348980676) GILBERTO (test code = GILBERTO) Association of [...] tests). Lab Interpretation Abnormal (test code = 26691-0) [facility]. METABOLIC PANEL (06982)2021-08-31 00:07:17 Test Item Value Reference Range Interpretation Comments NA (test code = 126 mmol/L 135-145 L 8753553150) K (test code = 4.3 mmol/L 3.5-5.0 Slight 2887203931) hemolysis CL (test code = 96 mmol/L 98-108 L 2565831423) CO2 TOTAL (test code 18 mmol/L 23-31 L = 7349574301) AGAP (test code = 2-16 6824364451) BUN (test code = 58 mg/dL 7-23 H Slight 9683856417) hemolysis GLUCOSE (test code = 108 mg/dL 70-110 4235391777) CREATININE (test code 2.11 mg/dL 0.60-1.25 H = 8929287671) TOTAL BILI (test code 0.7 mg/dL 0.1-1.1 = 5307662539) CALCIUM (test code = 9.2 mg/dL 8.6-10.6 4829237428) T PROTEIN (test code 7.6 g/dL 6.3-8.2 = 0310307915) ALBUMIN (test code = 4.9 g/dL 3.5-5.0 3741493727) ALK PHOS (test code = 96 U/L 34-122 Slight 1851666696) hemolysis ALTv (test code = 27 U/L 5-50 1742-6) AST(SGOT) (test code 46 U/L 13-40 H Slight = 2143461246) hemolysis eGFR (test code = mL/min/1.73m2 3997341676) GILBERTO (test code = GILBERTO) Association of [...] tests). Lab Interpretation Abnormal (test code = 95484-5) [facility] WITH [id number] 23:36:10 Test Item Value Reference Range Interpretation Comments WBC (test code = See_Comment [Automated 8409-2) message] The sy stem which generated this result transmitted reference range : 4.20 - 10.70 10*3/?L. The reference range was not used to interpret this result as normal/abnormal . RBC (test code = See_Comment [Automated 416-8) message] The sy stem which generated this [...] RDW-SD (test code = 41.7 fL 38.5-51.6 11734-6) RDW-CV (test code = 13.4 % 12.1-15.4 788-0) PLT (test code = See_Comment [Automated 777-3) message] The sy stem which generated this result transmitted reference range : 150 - 328 10*3/ ?L. The reference r meredith was not used to interpret this result as normal/abnormal . MPV (test code = 10.3 fL 9.8-13.0 64078-5) NRBC/100 WBC (test See_Comment [Automat ed code = 1971567490) message] The system which generated this result transmitted reference range : 0.0 - 10.0 /100 WBCs. The refer ence range was not u sed to interpret th is result as normal/abnormal . NRBC x10^3 (test code <0.01 See_Comment [Auto mated = 4735874810) message] The s ystem which generated this result transmitted reference range : 10*3/?L. The reference range was not used to interpret this result as normal/abnormal . GRAN MAT (NEUT) % 60.6 % (test code = 770-8) IMM GRAN % (test code 0.30 % = 6314629744) LYMPH % (test code = 29.1 % 736-9) MONO % (test code = 8.8 % 5905-5) EOS % (test code = 0.6 % 713-8) BASO % (test code = 0.6 % 706-2) GRAN MAT x10^3(ANC) 4.08 10*3/uL 1.99-6.95 (test code = 6010106666) IMM GRAN x10^3 (test <0.03 0.00-0.06 code = 9452379782) LYMPH x10^3 (test code 1.96 10*3/uL 1.09-3.23 = 731-0) MONO x10^3 (test code 0.59 10*3/uL 0.36-1.02 = 742-7) EOS x10^3 (test code = 0.04 10*3/uL 0.06-0.53 L 711-2) BASO x10^3 (test code 0.04 10*3/uL 0.01-0.09 = 704-7) Lab Interpretation Abnormal (test code = 73179-5) [facility] WITH [id number] 23:36:10 Test Item Value Reference Range Interpretation [...] RDW-SD (test code = 41.7 fL 38.5-51.6 29177-5) RDW-CV (test code = 13.4 % 12.1-15.4 788-0) PLT (test code = See_Comment [Automated 777-3) message] The sy stem which generated this result transmitted reference range : 150 - 328 10*3/ ?L. The reference r meredith was not used to interpret this result as normal/abnormal . MPV (test code = 10.3 fL 9.8-13.0 93131-2) NRBC/100 WBC (test See_Comment [Automat ed code = 2822230202) message] The system which generated this result transmitted reference range : 0.0 - 10.0 /100 WBCs. The refer ence range was not u sed to interpret th is result as normal/abnormal . NRBC x10^3 (test code <0.01 See_Comment [Auto mated = 6442310434) message] The s ystem which generated this result transmitted reference range : 10*3/?L. The reference range was not used to interpret this result as normal/abnormal . GRAN MAT (NEUT) % 60.6 % (test code = 770-8) IMM GRAN % (test code 0.30 % = 6750516709) LYMPH % (test code = 29.1 % 736-9) MONO % (test code = 8.8 % 5905-5) EOS % (test code = 0.6 % 713-8) BASO % (test code = 0.6 % 706-2) GRAN MAT x10^3(ANC) 4.08 10*3/uL 1.99-6.95 (test code = 7294276637) IMM GRAN x10^3 (test <0.03 0.00-0.06 code = 6898568164) LYMPH x10^3 (test code 1.96 10*3/uL 1.09-3.23 = 731-0) MONO x10^3 (test code 0.59 10*3/uL 0.36-1.02 = 742-7) EOS x10^3 (test code = 0.04 10*3/uL 0.06-0.53 L 711-2) BASO x10^3 (test code 0.04 10*3/uL 0.01-0.09 = 704-7) Lab Interpretation Abnormal (test code = 46664-5) [facility] ST[facility] FOR GROUP [id number] 00:24:00 Test Item Value Reference Range Interpretation Comments POCT GP A STREP (test code = Negative Negative - Negative 16855-5) Lab Interpretation (test code = Normal 81035-7) [facility]2021-[facility]-13 11:38:43 Test Item Value Reference Range Interpretation Comments PALB (test code = 95973-0) 25.2 mg/dL 18.0-45.0 Lab Interpretation (test code = Normal 33302-2) [facility] (NA, K, CL, CO2, GLUCOSE, BUN, CREATININE, CA)2021-08-05 11:30:59 Test Item Value Reference Range Interpretation Comments NA (test code = 140 mmol/L 135-145 8066261164) K (test code = 4.2 mmol/L 3.5-5.0 8156800855) CL (test code = 110 mmol/L 98-108 H 7658972618) CO2 TOTAL (test code = 27 mmol/L 23-31 5820211925) AGAP (test code = 2-16 6179736262) BUN (test code = 9 mg/dL 7-23 1849860552) GLUCOSE (test code = 86 mg/dL 70-110 2661530948) CREATININE (test code = 1.51 mg/dL 0.60-1.25 H 4648750723) CALCIUM (test code = 8.5 mg/dL 8.6-10.6 L 5248931522) eGFR (test code = mL/min/1.73m2 5680040248) GILBERTO (test code = GILBERTO) Association of [...] tests). Lab Interpretation Abnormal (test code = 75187-4) [facility]2021-[facility]-13 11:30:59 Test Item Value Reference Range Interpretation Comments MAGNESIUM (test code = 6470286104) 2.0 mg/dL 1.7-2.4 Lab Interpretation (test code = Normal 22491-2) [facility]PHOSPHORUS2021-12-13 11:30:59 Test Item Value Reference Range Interpretation Comments PHOSPHORUS (test code = 0596918906) 5.1 mg/dL 2.5-5.0 H Lab Interpretation (test code = Abnormal 73777-0) [facility]2021-[facility]-13 11:30:59 Test Item Value Reference Range Interpretation Comments ALBUMIN (test code = 1965114181) 3.1 g/dL 3.5-5.0 L Lab Interpretation (test code = Abnormal 99346-0) [facility] District[facility] WITH [id number] 11:05:58 Test Item Value Reference Range Interpretation [...] RDW-SD (test code = 47.5 fL 38.5-51.6 61202-0) RDW-CV (test code = 14.0 % 12.1-15.4 788-0) PLT (test code = See_Comment [Automated 777-3) message] The sy stem which generated this result transmitted reference range : 150 - 328 10*3/ ?L. The reference r meredith was not used to interpret this result as normal/abnormal . MPV (test code = 9.5 fL 9.8-13.0 L 64279-2) NRBC/100 WBC (test See_Comment [Automat ed code = 8932251036) message] The system which generated this result transmitted reference range : 0.0 - 10.0 /100 WBCs. The refer ence range was not u sed to interpret th is result as normal/abnormal . NRBC x10^3 (test code <0.01 See_Comment [Auto mated = 0564961565) message] The s ystem which generated this result transmitted reference range : 10*3/?L. The reference range was not used to interpret this result as normal/abnormal . GRAN MAT (NEUT) % 52.5 % (test code = 770-8) IMM GRAN % (test code 0.30 % = 1898171618) LYMPH % (test code = 31.1 % 736-9) MONO % (test code = 11.7 % 5905-5) EOS % (test code = 3.9 % 713-8) BASO % (test code = 0.5 % 706-2) GRAN MAT x10^3(ANC) 2.03 10*3/uL 1.99-6.95 (test code = 8004051568) IMM GRAN x10^3 (test <0.03 0.00-0.06 code = 1574757689) LYMPH x10^3 (test code 1.20 10*3/uL 1.09-3.23 = 731-0) MONO x10^3 (test code 0.45 10*3/uL 0.36-1.02 = 742-7) EOS x10^3 (test code = 0.15 10*3/uL 0.06-0.53 711-2) BASO x10^3 (test code <0.03 0.01-0.09 = 704-7) Lab Interpretation Abnormal (test code = 44522-1) [facility] WITH [id number] 12:30:17 Test Item Value Reference Range Interpretation [...] RDW-SD (test code = 49.2 fL 38.5-51.6 64319-7) RDW-CV (test code = 14.3 % 12.1-15.4 788-0) PLT (test code = See_Comment [Automated 777-3) message] The sy stem which generated this result transmitted reference range : 150 - 328 10*3/ ?L. The reference r meredith was not used to interpret this result as normal/abnormal . MPV (test code = 9.2 fL 9.8-13.0 L 78904-9) NRBC/100 WBC (test See_Comment [Automat ed code = 8521295900) message] The system which generated this result transmitted reference range : 0.0 - 10.0 /100 WBCs. The refer ence range was not u sed to interpret th is result as normal/abnormal . NRBC x10^3 (test code <0.01 See_Comment [Auto mated = 5467244918) message] The s ystem which generated this result transmitted reference range : 10*3/?L. The reference range was not used to interpret this result as normal/abnormal . GRAN MAT (NEUT) % 47.2 % (test code = 770-8) IMM GRAN % (test code 0.30 % = 6798314757) LYMPH % (test code = 36.0 % 736-9) MONO % (test code = 12.6 % 5905-5) EOS % (test code = 3.4 % 713-8) BASO % (test code = 0.5 % 706-2) GRAN MAT x10^3(ANC) 1.80 10*3/uL 1.99-6.95 L (test code = 8156307696) IMM GRAN x10^3 (test <0.03 0.00-0.06 code = 2163205433) LYMPH x10^3 (test code 1.37 10*3/uL 1.09-3.23 = 731-0) MONO x10^3 (test code 0.48 10*3/uL 0.36-1.02 = 742-7) EOS x10^3 (test code = 0.13 10*3/uL 0.06-0.53 711-2) BASO x10^3 (test code <0.03 0.01-0.09 = 704-7) Lab Interpretation Abnormal (test code = 31413-1) [facility] METABOLIC PANEL (NA, K, CL, CO2, GLUCOSE, BUN, CREATININE, CA)2021-08-04 12:17:48 Test Item Value Reference Range Interpretation Comments NA (test code = 139 mmol/L 135-145 6397023010) K (test code = 4.3 mmol/L 3.5-5.0 4655117799) CL (test code = 110 mmol/L 98-108 H [id number]) CO2 TOTAL (test code = 26 mmol/L 23-31 7232952825) AGAP (test code = 2-16 8413703496) BUN (test code = 8 mg/dL 7-23 2860490830) GLUCOSE (test code = 87 mg/dL 70-110 0413991151) CREATININE (test code = 1.50 mg/dL 0.60-1.25 H 9543442952) CALCIUM (test code = 8.4 mg/dL 8.6-10.6 L 4475205408) eGFR (test code = mL/min/1.73m2 2770234468) GILBERTO (test code = GILBERTO) [employer] of [...] tests). Lab Interpretation Abnormal (test code = 35082-5) [facility] Test Item Value Reference Range Interpretation Comments MAGNESIUM (test code = 5655482518) 1.9 mg/dL 1.7-2.4 Lab Interpretation (test code = Normal 22229-3) [facility] 12:17:48 Test Item Value Reference Range Interpretation Comments PHOSPHORUS (test code = 4561355155) 4.6 mg/dL 2.5-5.0 Lab Interpretation (test code = Normal 24007-8) [facility] [id number] 11:23:38 Test Item Value Reference Range Interpretation [...] RDW-SD (test code = 47.8 fL 38.5-51.6 53731-2) RDW-CV (test code = 14.1 % 12.1-15.4 788-0) PLT (test code = See_Comment [Automated 777-3) message] The sy stem which generated this result transmitted reference range : 150 - 328 10*3/ ?L. The reference r meredith was not used to interpret this result as normal/abnormal . MPV (test code = 9.3 fL 9.8-13.0 L 21127-5) NRBC/100 WBC (test See_Comment [Automat ed code = 3254362838) message] The system which generated this result transmitted reference range : 0.0 - 10.0 /100 WBCs. The refer ence range was not u sed to interpret th is result as normal/abnormal . NRBC x10^3 (test code <0.01 See_Comment [Auto mated = 6140036936) message] The s ystem which generated this result transmitted reference range : 10*3/?L. The reference range was not used to interpret this result as normal/abnormal . GRAN MAT (NEUT) % 49.3 % (test code = 770-8) IMM GRAN % (test code 0.30 % = 7028080348) LYMPH % (test code = 34.6 % 736-9) MONO % (test code = 12.0 % 5905-5) EOS % (test code = 3.3 % 713-8) BASO % (test code = 0.5 % 706-2) GRAN MAT x10^3(ANC) 1.97 10*3/uL 1.99-6.95 L (test code = 0702488283) IMM GRAN x10^3 (test <0.03 0.00-0.06 code = 9835447664) LYMPH x10^3 (test code 1.38 10*3/uL 1.09-3.23 = 731-0) MONO x10^3 (test code 0.48 10*3/uL 0.36-1.02 = 742-7) EOS x10^3 (test code = 0.13 10*3/uL 0.06-0.53 711-2) BASO x10^3 (test code <0.03 0.01-0.09 = 704-7) Lab Interpretation Abnormal (test code = 99143-9) [facility] METABOLIC PANEL (NA, K, CL, CO2, GLUCOSE, BUN, CREATININE, CA)2021-08-03 11:18:55 Test Item Value Reference Range Interpretation Comments NA (test code = 139 mmol/L 135-145 9237074162) K (test code = 4.1 mmol/L 3.5-5.0 5807367881) CL (test code = 110 mmol/L 98-108 H 0895934588) CO2 TOTAL (test code = 27 mmol/L 23-31 2663133725) AGAP (test code = 2-16 6345106578) BUN (test code = 8 mg/dL 7-23 8007739718) GLUCOSE (test code = 93 mg/dL 70-110 3953543918) CREATININE (test code = 1.39 mg/dL 0.60-1.25 H 1986527760) CALCIUM (test code = 8.1 mg/dL 8.6-10.6 L 2137087300) eGFR (test code = mL/min/1.73m2 2086083015) GILBERTO (test code = GILBERTO) Association of [...] tests). Lab Interpretation Abnormal (test code = 28482-6) [facility] 11:18:55 Test Item Value Reference Range Interpretation Comments MAGNESIUM (test code = 7999066656) 2.0 mg/dL 1.7-2.4 Lab Interpretation (test code = Normal 80567-7) [facility] 11:18:55 Test Item Value Reference Range Interpretation Comments PHOSPHORUS (test code = 1063878191) 3.8 mg/dL 2.5-5.0 Lab Interpretation (test code = Normal 68863-1) [facility] (NA, K, CL, CO2, GLUCOSE, BUN, CREATININE, CA)2021-08-02 14:06:51 Test Item Value Reference Range Interpretation Comments NA (test code = 137 mmol/L 135-145 2139248608) K (test code = 4.4 mmol/L 3.5-5.0 7130772587) CL (test code = 108 mmol/L 98-108 9404338731) CO2 TOTAL (test code = 24 mmol/L 23-31 9142205029) AGAP (test code = 2-16 3399681036) BUN (test code = 10 mg/dL 7-23 3696325791) GLUCOSE (test code = 83 mg/dL 70-110 5062183155) CREATININE (test code = 1.48 mg/dL 0.60-1.25 H 6405265581) CALCIUM (test code = 8.4 mg/dL 8.6-10.6 L 9237820660) eGFR (test code = mL/min/1.73m2 5315131068) GILBERTO (test code = GILBERTO) Association of [...] tests). Lab Interpretation Abnormal (test code = 71161-7) [facility] Test Item Value Reference Range Interpretation Comments MAGNESIUM (test code = 1411683943) 2.1 mg/dL 1.7-2.4 Lab Interpretation (test code = Normal 08413-3) [facility] 14:06:51 Test Item Value Reference Range Interpretation Comments PHOSPHORUS (test code = 4388828222) 4.6 mg/dL 2.5-5.0 Lab Interpretation (test code = Normal 14713-8) [facility] WITH [id number] 12:30:05 Test Item Value Reference Range Interpretation [...] RDW-SD (test code = 48.6 fL 38.5-51.6 06499-5) RDW-CV (test code = 14.3 % 12.1-15.4 788-0) PLT (test code = See_Comment [Automated 777-3) message] The sy stem which generated this result transmitted reference range : 150 - 328 10*3/ ?L. The reference r meredith was not used to interpret this result as normal/abnormal . MPV (test code = 10.0 fL 9.8-13.0 44753-5) NRBC/100 WBC (test See_Comment [Automat ed code = 5527360212) message] The system which generated this result transmitted reference range : 0.0 - 10.0 /100 WBCs. The refer ence range was not u sed to interpret th is result as normal/abnormal . NRBC x10^3 (test code <0.01 See_Comment [Auto mated = 0114794391) message] The s ystem which generated this result transmitted reference range : 10*3/?L. The reference range was not used to interpret this result as normal/abnormal . GRAN MAT (NEUT) % 51.9 % (test code = 770-8) IMM GRAN % (test code 0.60 % = 8786873855) LYMPH % (test code = 32.7 % 736-9) MONO % (test code = 11.3 % 5905-5) EOS % (test code = 3.2 % 713-8) BASO % (test code = 0.3 % 706-2) GRAN MAT x10^3(ANC) 1.80 10*3/uL 1.99-6.95 L (test code = 1747889137) IMM GRAN x10^3 (test <0.03 0.00-0.06 code = 7428117496) LYMPH x10^3 (test code 1.13 10*3/uL 1.09-3.23 = 731-0) MONO x10^3 (test code 0.39 10*3/uL 0.36-1.02 = 742-7) EOS x10^3 (test code = 0.11 10*3/uL 0.06-0.53 711-2) BASO x10^3 (test code <0.03 0.01-0.09 = 704-7) Lab Interpretation Abnormal (test code = 50808-0) [facility] WITH [id number] 10:44:18 Test Item Value Reference Range Interpretation [...] RDW-SD (test code = 48.0 fL 38.5-51.6 92144-8) RDW-CV (test code = 14.1 % 12.1-15.4 788-0) PLT (test code = See_Comment [Automated 777-3) message] The sy stem which generated this result transmitted reference range : 150 - 328 10*3/ ?L. The reference r meredith was not used to interpret this result as normal/abnormal . MPV (test code = 9.5 fL 9.8-13.0 L 73064-7) NRBC/100 WBC (test See_Comment [Automat ed code = 9889571402) message] The system which generated this result transmitted reference range : 0.0 - 10.0 /100 WBCs. The refer ence range was not u sed to interpret th is result as normal/abnormal . NRBC x10^3 (test code <0.01 See_Comment [Auto mated = 9194527292) message] The s ystem which generated this result transmitted reference range : 10*3/?L. The reference range was not used to interpret this result as normal/abnormal . GRAN MAT (NEUT) % 50.8 % (test code = 770-8) IMM GRAN % (test code 0.30 % = 7052791684) LYMPH % (test code = 34.6 % 736-9) MONO % (test code = 10.3 % 5905-5) EOS % (test code = 3.7 % 713-8) BASO % (test code = 0.3 % 706-2) GRAN MAT x10^3(ANC) 1.78 10*3/uL 1.99-6.95 L (test code = 2434359526) IMM GRAN x10^3 (test <0.03 0.00-0.06 code = 8036662424) LYMPH x10^3 (test code 1.21 10*3/uL 1.09-3.23 = 731-0) MONO x10^3 (test code 0.36 10*3/uL 0.36-1.02 = 742-7) EOS x10^3 (test code = 0.13 10*3/uL 0.06-0.53 711-2) BASO x10^3 (test code <0.03 0.01-0.09 = 704-7) Lab Interpretation Abnormal (test code = 62662-3) [facility] METABOLIC PANEL (NA, K, CL, CO2, GLUCOSE, BUN, CREATININE, CA)2021-08-01 10:25:17 Test Item Value Reference Range Interpretation Comments NA (test code = 138 mmol/L 135-145 4738464376) K (test code = 4.1 mmol/L 3.5-5.0 4657901257) CL (test code = 105 mmol/L 98-108 7305358831) CO2 TOTAL (test code = 28 mmol/L 23-31 6101266653) AGAP (test code = 2-16 0674888305) BUN (test code = 13 mg/dL 7-23 9740579839) GLUCOSE (test code = 86 mg/dL 70-110 0070912158) CREATININE (test code = 1.46 mg/dL 0.60-1.25 H 7910179593) CALCIUM (test code = 8.7 mg/dL 8.6-10.6 5250579557) eGFR (test code = mL/min/1.73m2 4639300454) GILBERTO (test code = GILBERTO) Association of [...] tests). Lab Interpretation Abnormal (test code = 51984-8) [facility] 10:25:17 Test Item Value Reference Range Interpretation Comments MAGNESIUM (test code = 7858323716) 1.6 mg/dL 1.7-2.4 L Lab Interpretation (test code = Abnormal 54460-8) [facility] 10:25:17 Test Item Value Reference Range Interpretation Comments PHOSPHORUS (test code = 8210504392) 4.1 mg/dL 2.5-5.0 Lab Interpretation (test code = Normal 49747-2) [facility] 16:18:34 Test Item Value Reference Range Interpretation Comments PALB (test code = 35407-5) 24.3 mg/dL 18.0-45.0 Lab Interpretation (test code = Normal 15708-2) [facility] [id number] 11:20:19 Test Item Value Reference Range Interpretation [...] RDW-SD (test code = 49.6 fL 38.5-51.6 70304-8) RDW-CV (test code = 14.6 % 12.1-15.4 788-0) PLT (test code = See_Comment [Automated 777-3) message] The sy stem which generated this result transmitted reference range : 150 - 328 10*3/ ?L. The reference r meredith was not used to interpret this result as normal/abnormal . MPV (test code = 9.6 fL 9.8-13.0 L 31753-3) NRBC/100 WBC (test See_Comment [Automat ed code = 1212989592) message] The system which generated this result transmitted reference range : 0.0 - 10.0 /100 WBCs. The refer ence range was not u sed to interpret th is result as normal/abnormal . NRBC x10^3 (test code <0.01 See_Comment [Auto mated = 9417032383) message] The s ystem which generated this result transmitted reference range : 10*3/?L. The reference range was not used to interpret this result as normal/abnormal . GRAN MAT (NEUT) % 49.1 % (test code = 770-8) IMM GRAN % (test code 0.30 % = 6672668988) LYMPH % (test code = 36.0 % 736-9) MONO % (test code = 10.6 % 5905-5) EOS % (test code = 3.4 % 713-8) BASO % (test code = 0.6 % 706-2) GRAN MAT x10^3(ANC) 1.76 10*3/uL 1.99-6.95 L (test code = 4188656704) IMM GRAN x10^3 (test <0.03 0.00-0.06 code = 1674202063) LYMPH x10^3 (test code 1.29 10*3/uL 1.09-3.23 = 731-0) MONO x10^3 (test code 0.38 10*3/uL 0.36-1.02 = 742-7) EOS x10^3 (test code = 0.12 10*3/uL 0.06-0.53 711-2) BASO x10^3 (test code <0.03 0.01-0.09 = 704-7) Lab Interpretation Abnormal (test code = 15439-7) [facility] METABOLIC PANEL (NA, K, CL, CO2, GLUCOSE, BUN, CREATININE, CA)2021-07-31 11:11:17 Test Item Value Reference Range Interpretation Comments NA (test code = 135 mmol/L 135-145 6406899335) K (test code = 3.8 mmol/L 3.5-5.0 2414123141) CL (test code = 108 mmol/L 98-108 2909659344) CO2 TOTAL (test code = 24 mmol/L 23-31 5793373080) AGAP (test code = 2-16 3936381217) BUN (test code = 13 mg/dL 7-23 4770588525) GLUCOSE (test code = 88 mg/dL 70-110 1414156939) CREATININE (test code = 1.32 mg/dL 0.60-1.25 H 4573033035) CALCIUM (test code = 8.4 mg/dL 8.6-10.6 L 9679128246) eGFR (test code = mL/min/1.73m2 3199937976) GILBERTO (test code = GILBERTO) Association of [...] tests). Lab Interpretation Abnormal (test code = 96663-3) [facility] 11:11:17 Test Item Value Reference Range Interpretation Comments MAGNESIUM (test code = 8587778941) 1.8 mg/dL 1.7-2.4 Lab Interpretation (test code = Normal 02653-4) [facility] 11:11:17 Test Item Value Reference Range Interpretation Comments PHOSPHORUS (test code = 6788237620) 4.0 mg/dL 2.5-5.0 Lab Interpretation (test code = Normal 19747-2) [facility] (15941)2021-07-30 03:46:32 Test Item Value Reference Range Interpretation Comments NA (test code = 132 mmol/L 135-145 L 6505300542) K (test code = 4.4 mmol/L 3.5-5.0 3981459220) CL (test code = 102 mmol/L 98-108 1347674683) CO2 TOTAL (test code = 24 mmol/L 23-31 7698083252) AGAP (test code = 2-16 2977269700) BUN (test code = 21 mg/dL 7-23 1945561227) GLUCOSE (test code = 95 mg/dL 70-110 0289226769) CREATININE (test code = 1.76 mg/dL 0.60-1.25 H 5663375651) TOTAL BILI (test code = 0.7 mg/dL 0.1-1.9 6771528838) CALCIUM (test code = 8.8 mg/dL 8.6-10.6 8686767713) T PROTEIN (test code = 6.0 g/dL 6.3-8.2 L 4112273533) ALBUMIN (test code = 3.8 g/dL 3.5-5.0 5856271895) ALK PHOS (test code = 67 U/L 34-122 0331813609) ALTv (test code = 47 U/L 5-50 1742-6) AST(SGOT) (test code = 39 U/L 13-40 9958979328) eGFR (test code = mL/min/1.73m2 1435178996) GILBERTO (test code = GILBERTO) Association of [...] tests). Lab Interpretation Abnormal (test code = 29734-1) [facility] 03:19:26 Test Item Value Reference Range Interpretation Comments LIPASE (test code = 4221859945) 58 U/L 0-220 Lab Interpretation (test code = Normal 24932-3) [facility] [id number] 03:07:20 Test Item Value Reference Range Interpretation [...] RDW-SD (test code = 47.4 fL 38.5-51.6 93197-0) RDW-CV (test code = 14.2 % 12.1-15.4 788-0) PLT (test code = See_Comment [Automated 777-3) message] The sy stem which generated this result transmitted reference range : 150 - 328 10*3/ ?L. The reference r meredith was not used to interpret this result as normal/abnormal . MPV (test code = 9.9 fL 9.8-13.0 31944-7) NRBC/100 WBC (test See_Comment [Automat ed code = 7480329533) message] The system which generated this result transmitted reference range : 0.0 - 10.0 /100 WBCs. The refer ence range was not u sed to interpret th is result as normal/abnormal . NRBC x10^3 (test code <0.01 See_Comment [Auto mated = 8670840794) message] The s ystem which generated this result transmitted reference range : 10*3/?L. The reference range was not used to interpret this result as normal/abnormal . GRAN MAT (NEUT) % 61.1 % (test code = 770-8) IMM GRAN % (test code 0.20 % = 7469135013) LYMPH % (test code = 24.4 % 736-9) MONO % (test code = 11.8 % 5905-5) EOS % (test code = 2.2 % 713-8) BASO % (test code = 0.3 % 706-2) GRAN MAT x10^3(ANC) 3.98 10*3/uL 1.99-6.95 (test code = 7239674585) IMM GRAN x10^3 (test <0.03 0.00-0.06 code = 3305316970) LYMPH x10^3 (test code 1.59 10*3/uL 1.09-3.23 = 731-0) MONO x10^3 (test code 0.77 10*3/uL 0.36-1.02 = 742-7) EOS x10^3 (test code = 0.14 10*3/uL 0.06-0.53 711-2) BASO x10^3 (test code <0.03 0.01-0.09 = 704-7) Lab Interpretation Abnormal (test code = 99368-4) [facility] Whole [id number] 03:00:47 Test Item Value Reference Range Interpretation Comments LACTIC ACID (test code = 1.45 mmol/L 0.50-2.20 QUE S 1098413628) Lab Interpretation (test code = Normal 86031-1) [facility] [id number] 11:51:00 Test Item Value Reference Range Interpretation [...] Units/L 50.0-136.0 N code = ALKP) PROTHROMBIN [id number] 11:41:00 Test Item Value Reference Range Interpretation Comments PROTHROMBIN TIME 10.9 SECONDS 9.9-12.8 N PATIENT (test code = PTP) INTERNATIONAL NORMAL 0.9 0.89-1.14 N THE INR IS TO BE USED RATIO (test code = ONLY FOR MONITORING INR) ORAL ANTICOAGULANTTH ERAPY. THE FOLLOWING A RE SUGGESTED RANGE S [facility]:ROOPA CATION INR VALUEPROPHY [...] D ANTIBODIES 2.5 - 3.5 CBC W/AUTO [id number] 11:36:00 Test Item Value Reference Range Interpretation [...] NA (test code = 137 mmol/L 135-145 4896947038) K (test code = 4.2 mmol/L 3.5-5.0 4039165644) CL (test code = 109 mmol/L 98-108 H 1889131770) CO2 TOTAL (test code = 25 mmol/L 23-31 5266341924) AGAP (test code = 2-16 5752283642) BUN (test code = 11 mg/dL 7-23 5229724792) GLUCOSE (test code = 83 mg/dL 70-110 6520343967) CREATININE (test code = 1.40 mg/dL 0.60-1.25 H 6712791728) CALCIUM (test code = 8.6 mg/dL 8.6-10.6 4952835615) eGFR (test code = mL/min/1.73m2 9485736922) GILBERTO (test code = GILBERTO) Association of [...] tests). Lab Interpretation Abnormal (test code = 97018-4) [facility] 13:15:26 Test Item Value Reference Range Interpretation Comments MAGNESIUM (test code = 6747678390) 1.6 mg/dL 1.7-2.4 L Lab Interpretation (test code = Abnormal 09917-9) [facility] 13:15:26 Test Item Value Reference Range Interpretation Comments PHOSPHORUS (test code = 1013768541) 3.5 mg/dL 2.5-5.0 Lab Interpretation (test code = Normal 43343-8) [facility] [id number] 12:50:41 Test Item Value Reference Range Interpretation Comments WBC (test code = See_Comment [Automated 2290-2) message] The sy stem which generated this [...] RDW-SD (test code = 46.7 fL 38.5-51.6 16149-7) RDW-CV (test code = 14.3 % 12.1-15.4 788-0) PLT (test code = See_Comment [Automated 777-3) message] The sy stem which generated this result transmitted reference range : 150 - 328 10*3/ ?L. The reference r meredith was not used to interpret this result as normal/abnormal . MPV (test code = 9.6 fL 9.8-13.0 L 45115-4) NRBC/100 WBC (test See_Comment [Automat ed code = 8868089566) message] The system which generated this result transmitted reference range : 0.0 - 10.0 /100 WBCs. The refer ence range was not u sed to interpret th is result as normal/abnormal . NRBC x10^3 (test code <0.01 See_Comment [Auto mated = 6610284439) message] The s ystem which generated this result transmitted reference range : 10*3/?L. The reference range was not used to interpret this result as normal/abnormal . GRAN MAT (NEUT) % 52.7 % (test code = 770-8) IMM GRAN % (test code 0.40 % = 8634775183) LYMPH % (test code = 33.7 % 736-9) MONO % (test code = 10.4 % 5905-5) EOS % (test code = 2.4 % 713-8) BASO % (test code = 0.4 % 706-2) GRAN MAT x10^3(ANC) 2.65 10*3/uL 1.99-6.95 (test code = 9878564064) IMM GRAN x10^3 (test <0.03 0.00-0.06 code = 5005123495) LYMPH x10^3 (test code 1.69 10*3/uL 1.09-3.23 = 731-0) MONO x10^3 (test code 0.52 10*3/uL 0.36-1.02 = 742-7) EOS x10^3 (test code = 0.12 10*3/uL 0.06-0.53 711-2) BASO x10^3 (test code <0.03 0.01-0.09 = 704-7) Lab Interpretation Abnormal (test code = 78035-4) [facility] 12:35:59 Test Item Value Reference Range Interpretation Comments MAGNESIUM (test code = 8578215530) 1.6 mg/dL 1.7-2.4 L Lab Interpretation (test code = Abnormal 16949-9) [facility] 12:35:59 Test Item Value Reference Range Interpretation Comments PHOSPHORUS (test code = 1902952249) 4.0 mg/dL 2.5-5.0 Lab Interpretation (test code = Normal 13247-2) [facility] (NA, K, CL, CO2, GLUCOSE, BUN, CREATININE, CA)2021-07-25 12:09:12 Test Item Value Reference Range Interpretation Comments NA (test code = 139 mmol/L 135-145 0348752492) K (test code = 4.1 mmol/L 3.5-5.0 4252671589) CL (test code = 111 mmol/L 98-108 H 1028921016) CO2 TOTAL (test code = 25 mmol/L 23-31 4688416886) AGAP (test code = 2-16 3454487792) BUN (test code = 13 mg/dL 7-23 1997701376) GLUCOSE (test code = 86 mg/dL 70-110 1255250705) CREATININE (test code = 1.43 mg/dL 0.60-1.25 H 2222992056) CALCIUM (test code = 8.4 mg/dL 8.6-10.6 L 3936943506) eGFR (test code = mL/min/1.73m2 3607355439) GILBERTO (test code = GILBERTO) Association of [...] tests). Lab Interpretation Abnormal (test code = 07076-6) [facility] WITH [id number] 11:44:33 Test Item Value Reference Range Interpretation Comments WBC (test code = See_Comment [Automated 0786-2) message] The sy stem which generated this result transmitted reference range : 4.20 - 10.70 10*3/?L. The reference range was not used to interpret this result as normal/abnormal . RBC (test code = See_Comment L [Automated 325-5) message] The sy stem which generated this [...] RDW-SD (test code = 48.9 fL 38.5-51.6 42260-2) RDW-CV (test code = 14.3 % 12.1-15.4 788-0) PLT (test code = See_Comment [Automated 777-3) message] The sy stem which generated this result transmitted reference range : 150 - 328 10*3/ ?L. The reference r meredith was not used to interpret this result as normal/abnormal . MPV (test code = 9.6 fL 9.8-13.0 L 77388-0) NRBC/100 WBC (test See_Comment [Automat ed code = 4919175116) message] The system which generated this result transmitted reference range : 0.0 - 10.0 /100 WBCs. The refer ence range was not u sed to interpret th is result as normal/abnormal . NRBC x10^3 (test code <0.01 See_Comment [Auto mated = 0108452604) message] The s ystem which generated this result transmitted reference range : 10*3/?L. The reference range was not used to interpret this result as normal/abnormal . GRAN MAT (NEUT) % 50.0 % (test code = 770-8) IMM GRAN % (test code 0.20 % = 2039652777) LYMPH % (test code = 36.7 % 736-9) MONO % (test code = 10.0 % 5905-5) EOS % (test code = 2.6 % 713-8) BASO % (test code = 0.5 % 706-2) GRAN MAT x10^3(ANC) 2.11 10*3/uL 1.99-6.95 (test code = 6245285851) IMM GRAN x10^3 (test <0.03 0.00-0.06 code = 9693960146) LYMPH x10^3 (test code 1.55 10*3/uL 1.09-3.23 = 731-0) MONO x10^3 (test code 0.42 10*3/uL 0.36-1.02 = 742-7) EOS x10^3 (test code = 0.11 10*3/uL 0.06-0.53 711-2) BASO x10^3 (test code <0.03 0.01-0.09 = 704-7) Lab Interpretation Abnormal (test code = 28701-8) [facility] WITH [id number] 04:23:56 Test Item Value Reference Range Interpretation [...] RDW-SD (test code = 49.0 fL 38.5-51.6 15406-4) RDW-CV (test code = 14.4 % 12.1-15.4 788-0) PLT (test code = See_Comment [Automated 777-3) message] The sy stem which generated this result transmitted reference range : 150 - 328 10*3/ ?L. The reference r meredith was not used to interpret this result as normal/abnormal . MPV (test code = 9.5 fL 9.8-13.0 L 12586-0) NRBC/100 WBC (test See_Comment [Automat ed code = 1739247009) message] The system which generated this result transmitted reference range : 0.0 - 10.0 /100 WBCs. The refer ence range was not u sed to interpret th is result as normal/abnormal . NRBC x10^3 (test code <0.01 See_Comment [Auto mated = 0708469554) message] The s ystem which generated this result transmitted reference range : 10*3/?L. The reference range was not used to interpret this result as normal/abnormal . GRAN MAT (NEUT) % 49.9 % (test code = 770-8) IMM GRAN % (test code 0.20 % = 4710995518) LYMPH % (test code = 35.2 % 736-9) MONO % (test code = 11.7 % 5905-5) EOS % (test code = 2.4 % 713-8) BASO % (test code = 0.6 % 706-2) GRAN MAT x10^3(ANC) 2.31 10*3/uL 1.99-6.95 (test code = 3913665125) IMM GRAN x10^3 (test <0.03 0.00-0.06 code = 4705703605) LYMPH x10^3 (test code 1.63 10*3/uL 1.09-3.23 = 731-0) MONO x10^3 (test code 0.54 10*3/uL 0.36-1.02 = 742-7) EOS x10^3 (test code = 0.11 10*3/uL 0.06-0.53 711-2) BASO x10^3 (test code 0.03 10*3/uL 0.01-0.09 = 704-7) Lab Interpretation Abnormal (test code = 58537-6) [facility]NA, K, CL, CO2, GLUCOSE, BUN, CREATININE, CA)2021-07-24 12:55:24 Test Item Value Reference Range Interpretation Comments NA (test code = 135 mmol/L 135-145 7530900762) K (test code = 4.0 mmol/L 3.5-5.0 3797744369) CL (test code = 109 mmol/L 98-108 H 3709010957) CO2 TOTAL (test code = 22 mmol/L 23-31 L 4204366094) AGAP (test code = 2-16 6797041102) BUN (test code = 12 mg/dL 7-23 1406876813) GLUCOSE (test code = 102 mg/dL 70-110 8264315133) CREATININE (test code = 1.27 mg/dL 0.60-1.25 H 9740131656) CALCIUM (test code = 8.6 mg/dL 8.6-10.6 7101376366) eGFR (test code = mL/min/1.73m2 4984918369) GILBERTO (test code = GILBERTO) Association of [...] tests). Lab Interpretation Abnormal (test code = 32628-9) [facility] Test Item Value Reference Range Interpretation Comments MAGNESIUM (test code = 6677899952) 1.7 mg/dL 1.7-2.4 Lab Interpretation (test code = Normal 04728-1) [facility]24 Test Item Value Reference Range Interpretation Comments PHOSPHORUS (test code = 3834251151) 3.1 mg/dL 2.5-5.0 Lab Interpretation (test code = Normal 42804-9) [facility] (NA, K, CL, CO2, Glucose, BUN, Creatinine, CA)2021-07-23 13:27:55 Test Item Value Reference Range Interpretation Comments NA (test code = 134 mmol/L 135-145 L 7851855616) K (test code = 3.8 mmol/L 3.5-5.0 5425925175) CL (test code = 107 mmol/L 98-108 3462102246) CO2 TOTAL (test code = 21 mmol/L 23-31 L 4024723419) AGAP (test code = 2-16 3905988393) BUN (test code = 18 mg/dL 7-23 6875935131) GLUCOSE (test code = 120 mg/dL 70-110 H 0879680533) CREATININE (test code = 1.46 mg/dL 0.60-1.25 H 9395824996) CALCIUM (test code = 8.7 mg/dL 8.6-10.6 7367803430) eGFR (test code = mL/min/1.73m2 7352695982) GIBLERTO (test code = GILBERTO) Association of Glomerular [...] tests). Lab Interpretation Abnormal (test code = 57699-9) [facility] 13:27:55 Test Item Value Reference Range Interpretation Comments MAGNESIUM (test code = 7586078502) 1.9 mg/dL 1.7-2.4 Lab Interpretation (test code = Normal 60275-1) [facility] 13:27:55 Test Item Value Reference Range Interpretation Comments PHOSPHORUS (test code = 5277124194) 3.5 mg/dL 2.5-5.0 Lab Interpretation (test code = Normal 18291-7) [facility] with [id number] 13:06:55 Test Item Value Reference Range Interpretation Comments WBC (test code = See_Comment [Automated 6690-2) message] The sy stem which generated this result transmitted reference range : 4.20 - 10.70 10*3/?L. The reference range was not used to interpret this result as normal/abnormal . RBC (test code = See_Comment L [Automated 869-8) message] The sy stem which generated this [...] RDW-SD (test code = 47.8 fL 38.5-51.6 26075-5) RDW-CV (test code = 14.4 % 12.1-15.4 788-0) PLT (test code = See_Comment [Automated 777-3) message] The sy stem which generated this result transmitted reference range : 150 - 328 10*3/ ?L. The reference r meredith was not used to interpret this result as normal/abnormal . MPV (test code = 9.4 fL 9.8-13.0 L 72563-4) NRBC/100 WBC (test See_Comment [Automat ed code = 4311207916) message] The system which generated this result transmitted reference range : 0.0 - 10.0 /100 WBCs. The refer ence range was not u sed to interpret th is result as normal/abnormal . NRBC x10^3 (test code <0.01 See_Comment [Auto mated = 3152837220) message] The s ystem which generated this result transmitted reference range : 10*3/?L. The reference range was not used to interpret this result as normal/abnormal . GRAN MAT (NEUT) % 54.7 % (test code = 770-8) IMM GRAN % (test code 0.40 % = 0029649578) LYMPH % (test code = 33.3 % 736-9) MONO % (test code = 9.4 % 5905-5) EOS % (test code = 1.8 % 713-8) BASO % (test code = 0.4 % 706-2) GRAN MAT x10^3(ANC) 2.78 10*3/uL 1.99-6.95 (test code = 5245437553) IMM GRAN x10^3 (test <0.03 0.00-0.06 code = 0706611019) LYMPH x10^3 (test code 1.69 10*3/uL 1.09-3.23 = 731-0) MONO x10^3 (test code 0.48 10*3/uL 0.36-1.02 = 742-7) EOS x10^3 (test code = 0.09 10*3/uL 0.06-0.53 711-2) BASO x10^3 (test code <0.03 0.01-0.09 = 704-7) Lab Interpretation Abnormal (test code = 92753-8) [facility]AUTO [id number] 09:48:00 Test Item Value Reference Range Interpretation [...] = MX#) 0.8 k/mm3 0.1-0.8 N GLUCOSE [id number] 06:12:00 Test Item Value Reference Range Interpretation Comments GLUCOSE BEDSIDE (test 129 MG/DL 70-110 H Perfor med by certified code = GLUBED) 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[employer] [facility] BASIC METABOLIC [id number] 05:21:00 Test Item Value Reference Range Interpretation [...] (test code = POCGLU) 92 MG/DL GLUCOSE [id number] 05:19:00 Test Item Value Reference Range Interpretation Comments GLUCOSE BEDSIDE (test 51 MG/DL 70-110 L Perfor med by certified code = GLUBED) 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 ed Ctr ALBUMIN (test code = [...] 65 UNITS/L 25-125 N LYNDSEY) BASIC METABOLIC [id number] 16:07:00 Test Item Value Reference Range Interpretation [...] POCGLU) 96 MG/DL - XR CHEST 1 [id number] 00:00:00 [facility] 1970 Sex: MFAX: Sabi Urias MD [phone] Tobias: ELLYN St: PRE Name: JOSEPHDORA FSED : 1970 Age/S: 51/M [address] [facility] Unit #: [id number] Loc: [place], [place] [address] Phys: Sabi Urias MD Acct: [id number] Dis Date: Status: PRE ER PHONE #: Exam Date: 06/27/2021 1542 FAX #: Reason: Abdominal PainEXAMS: CPT CODE: [id number] XR CHEST 1 V 88155 PROCEDURE INFORMATION: Exam: XR Chest Exam date [...] Alanna(R)(CT) Trnscrd Date/Time/By: 06/27/2021 (1558) : By: [email or web address] Orig Print D/T: S: 06/27/2021 (3299)PAGE 1 Signed Report- CT ABD PELVIS W/[id number] 00:00:00 [facility] : 1970 Sex: MName: DORA JOSEPH FSED : 1970 Age/S: 51 / M [address] [facility] Unit #: [id number] Loc: [place] [address] Phys: Sabi Urias MD Acct: [id number] Dis Date: Status: REG ER PHONE #: Exam Date: 06/27/2021 1623 FAX #: Reason: pain in region of colostomy EXAMS: CPT CODE: [id number] CT ABD PELVIS W/CONT 44244 PROCEDURE INFORMATION: Exam: CT Abdomen And Pelvis With Contrast Exam date and time: 06/27/2021 4:14 PM Age: 51 years old Clinical indication: Abdominal pain; Generalized; Additional info: Pain in region of colostomy TECHNIQUE: Imaging protocol: Computed tomography of theabdomen and pelvis with contrast. Radiation optimization: All CT scans at this facility use at leastone of these dose optimization techniques: automated exposure [...] detected. There is no CT evidence of acuterenal collecting system obstruction or calcified renal collecting system stone. BILIARY: The gallbladder is normally distended. No significant biliary ductal dilatation is detected. GASTROINTESTINAL: Bowel assessment is limited by the absence of bowel contrast. No gross abnormalities of the stomach orduodenum are identified. The patient is again noted [...] free intraperitoneal fluid. RETROPERITONEUM: The abdominal aorta demonstratesno evidence of aneurysm or dissection. There is [...] : 1970 Age/S: 51 / M [address] [facility] Unit #: [id number] Loc: [place] [address] Phys: Sabi Urias MD Acct: [id number] Dis Date: Status: REG ER PHONE #: Exam Date: 06/27/2021 1625 FAX #: Reason: pain in region of colostomy EXAMS: CPT CODE: [id number] CT ABD PELVIS W/CONT 63278 <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 There is no evidence of associated intestinal obstruction. 2. No additional acute CT abnormalities of the abdomen or pelvis are identified. SL:131 at 1650 Reported and signed by: Marco Raman M.D. CC: Sabi Urias MD Technologist:Yecenia Carbajal RT(R)(CT) CTDI: DLP: Trnscb Date/Time: 06/27/2021 (1649) It[place] Orig Print D/T: S: 06/27/2021 (1649) PAGE 2 Signed ReportBASIC METABOLIC PANEL (NA, K, CL, CO2, GLUCOSE, BUN, CREATININE, CA)2021-06-03 11:32:40 Test Item Value Reference Range Interpretation Comments NA (test code = 133 mmol/L 135-145 L 0760317706) K (test code = 3.7 mmol/L 3.5-5.0 7493751593) CL (test code = 108 mmol/L 98-108 7974320691) CO2 TOTAL (test code = 20 mmol/L 23-31 L 8917714365) AGAP (test code = 2-16 3177342544) BUN (test code = 11 mg/dL 7-23 0885883596) GLUCOSE (test code = 82 mg/dL 70-110 1484955791) CREATININE (test code = 0.96 mg/dL 0.60-1.25 8483707474) CALCIUM (test code = 8.6 mg/dL 8.6-10.6 1645919439) eGFR (test code = mL/min/1.73m2 7827991010) GILBERTO (test code = GILBERTO) Association of [...] tests). Lab Interpretation Abnormal (test code = 99385-5) [facility] (NA, K, CL, CO2, GLUCOSE, BUN, CREATININE, CA)2021-06-02 11:45:25 Test Item Value Reference Range Interpretation Comments NA (test code = 133 mmol/L 135-145 L 5020211919) K (test code = 3.7 mmol/L 3.5-5.0 5845692968) CL (test code = 111 mmol/L 98-108 H 5644266619) CO2 TOTAL (test code = 17 mmol/L 23-31 L 6350113599) AGAP (test code = 2-16 1843545749) BUN (test code = 15 mg/dL 7-23 1944098546) GLUCOSE (test code = 88 mg/dL 70-110 6658583399) CREATININE (test code = 0.96 mg/dL 0.60-1.25 5262235380) CALCIUM (test code = 8.1 mg/dL 8.6-10.6 L 7447047668) eGFR (test code = mL/min/1.73m2 9047896828) GILBERTO (test code = GILBERTO) Association of [...] tests). Lab Interpretation Abnormal (test code = 88606-3) [facility] (NA, K, CL, CO2, GLUCOSE, BUN, CREATININE, CA)2021-06-01 17:06:47 Test Item Value Reference Range Interpretation Comments NA (test code = 131 mmol/L 135-145 L 7590001117) K (test code = 3.9 mmol/L 3.5-5.0 Slight 7166833461) hemolysis CL (test code = 108 mmol/L 98-108 2746771313) CO2 TOTAL (test code 15 mmol/L 23-31 L = 2256927528) AGAP (test code = 2-16 8044541201) BUN (test code = 26 mg/dL 7-23 H Slight 5173166131) hemolysis GLUCOSE (test code = 85 mg/dL 70-110 2095909318) CREATININE (test code 1.26 mg/dL 0.60-1.25 H = 3179832311) CALCIUM (test code = 8.1 mg/dL 8.6-10.6 L 8893627110) eGFR (test code = mL/min/1.73m2 9384702062) GILBERTO (test code = GILBERTO) Association of [...] tests). Lab Interpretation Abnormal (test code = 37912-4) [facility] [id number] 05:45:35 Test Item Value Reference Range Interpretation Comments LACTIC ACID (test code = 0.67 mmol/L 0.50-2.20 8680852650) Lab Interpretation (test code = Normal 78347-1) [facility] [id number] 23:44:55 Test Item Value Reference Interpretation Comments Range TROPONIN I (test 0.004 ng/mL See_Comment [Automated code = 1261971173) message] The system which generated this result [...] biotin. Lab Interpretation Normal (test code = 40729-7) [facility] 23:33:28 Test Item Value Reference Range Interpretation Comments LIPASE (test code = 6852233835) 386 U/L 0-220 H Lab Interpretation (test code = Abnormal 02052-3) [facility]OL[facility] (87009)2021-05-31 23:33:28 Test Item Value Reference Range Interpretation Comments NA (test code = 128 mmol/L 135-145 L 5527184649) K (test code = 4.2 mmol/L 3.5-5.0 1397204749) CL (test code = 102 mmol/L 98-108 0788037792) CO2 TOTAL (test code = 13 mmol/L 23-31 L 7606810536) AGAP (test code = 2-16 9639975483) BUN (test code = 47 mg/dL 7-23 H 0571997386) GLUCOSE (test code = 106 mg/dL 70-110 4168188400) CREATININE (test code = 2.38 mg/dL 0.60-1.25 H 7723094008) TOTAL BILI (test code = 0.6 mg/dL 0.1-1.5 9629949229) CALCIUM (test code = 9.5 mg/dL 8.6-10.6 1776464583) T PROTEIN (test code = 7.3 g/dL 6.3-8.2 9632565369) ALBUMIN (test code = 4.6 g/dL 3.5-5.0 0922670904) ALK PHOS (test code = 110 U/L 34-122 5004420700) ALTv (test code = 29 U/L 5-50 1742-6) AST(SGOT) (test code = 33 U/L 13-40 2934265833) eGFR (test code = mL/min/1.73m2 0997547299) GILBERTO (test code = GILBERTO) Association of [...] tests). Lab Interpretation Abnormal (test code = 30180-1) [facility] WITH [id number] 22:57:06 Test Item Value Reference Range Interpretation [...] RDW-SD (test code = 43.2 fL 38.5-51.6 85845-9) RDW-CV (test code = 13.7 % 12.1-15.4 788-0) PLT (test code = See_Comment [Automated 777-3) message] The sy stem which generated this result transmitted reference range : 150 - 328 10*3/ ?L. The reference r meredith was not used to interpret this result as normal/abnormal . MPV (test code = 10.1 fL 9.8-13.0 17758-1) NRBC/100 WBC (test See_Comment [Automat ed code = 3463186220) message] The system which generated this result transmitted reference range : 0.0 - 10.0 /100 WBCs. The refer ence range was not u sed to interpret th is result as normal/abnormal . NRBC x10^3 (test code <0.01 See_Comment [Auto mated = 3328423308) message] The s ystem which generated this result transmitted reference range : 10*3/?L. The reference range was not used to interpret this result as normal/abnormal . GRAN MAT (NEUT) % 68.1 % (test code = 770-8) IMM GRAN % (test code 0.40 % = 7263542262) LYMPH % (test code = 21.9 % 736-9) MONO % (test code = 8.9 % 5905-5) EOS % (test code = 0.3 % 713-8) BASO % (test code = 0.4 % 706-2) GRAN MAT x10^3(ANC) 5.38 10*3/uL 1.99-6.95 (test code = 6330327657) IMM GRAN x10^3 (test 0.03 10*3/uL 0.00-0.06 code = 0421276796) LYMPH x10^3 (test code 1.73 10*3/uL 1.09-3.23 = 731-0) MONO x10^3 (test code 0.70 10*3/uL 0.36-1.02 = 742-7) EOS x10^3 (test code = <0.03 0.06-0.53 L 711-2) BASO x10^3 (test code 0.03 10*3/uL 0.01-0.09 = 704-7) Lab Interpretation Abnormal (test code = 93819-6) [facility] 09:49:03 Test Item Value Reference Range Interpretation Comments MAGNESIUM (test code = 6414581454) 2.0 mg/dL 1.7-2.4 Lab Interpretation (test code = Normal 76074-1) [facility]2021-09-28 09:49:03 Test Item Value Reference Range Interpretation Comments PHOSPHORUS (test code = 2089174370) 4.0 mg/dL 2.5-5.0 Lab Interpretation (test code = Normal 10768-7) [facility] Met[facility] (NA, K, CL, CO2, GLUCOSE, BUN, CREATININE, CA)2021-05-21 09:49:03 Test Item Value Reference Range Interpretation Comments NA (test code = 132 mmol/L 135-145 L 7154095863) K (test code = 4.3 mmol/L 3.5-5.0 2220165420) CL (test code = 105 mmol/L 98-108 8753673465) CO2 TOTAL (test code = 21 mmol/L 23-31 L 4030073027) AGAP (test code = 2-16 9432657954) BUN (test code = 25 mg/dL 7-23 H 1651146980) GLUCOSE (test code = 98 mg/dL 70-110 1300031340) CREATININE (test code = 1.20 mg/dL 0.60-1.25 8003296333) CALCIUM (test code = 8.4 mg/dL 8.6-10.6 L 6324941891) eGFR (test code = mL/min/1.73m2 2087600676) GILBERTO (test code = GILBERTO) Association of [...] tests). Lab Interpretation Abnormal (test code = 53309-3) [facility] with Rgpdrivzkzss4417-80-95 09:22:22 Test Item Value Reference Range Interpretation [...] RDW-SD (test code = 45.6 fL 38.5-51.6 59224-6) RDW-CV (test code = 13.7 % 12.1-15.4 788-0) PLT (test code = See_Comment [Automated 777-3) message] The sy stem which generated this result transmitted reference range : 150 - 328 10*3/ ?L. The reference r meredith was not used to interpret this result as normal/abnormal . MPV (test code = 9.7 fL 9.8-13.0 L 54720-1) NRBC/100 WBC (test See_Comment [Automat ed code = 9665929676) message] The system which generated this result transmitted reference range : 0.0 - 10.0 /100 WBCs. The refer ence range was not u sed to interpret th is result as normal/abnormal . NRBC x10^3 (test code <0.01 See_Comment [Auto mated = 5340426153) message] The s ystem which generated this result transmitted reference range : 10*3/?L. The reference range was not used to interpret this result as normal/abnormal . GRAN MAT (NEUT) % 49.4 % (test code = 770-8) IMM GRAN % (test code 0.60 % = 3363630964) LYMPH % (test code = 35.2 % 736-9) MONO % (test code = 11.9 % 5905-5) EOS % (test code = 2.1 % 713-8) BASO % (test code = 0.8 % 706-2) GRAN MAT x10^3(ANC) 2.33 10*3/uL 1.99-6.95 (test code = 3295808568) IMM GRAN x10^3 (test 0.03 10*3/uL 0.00-0.06 code = 6051640770) LYMPH x10^3 (test code 1.66 10*3/uL 1.09-3.23 = 731-0) MONO x10^3 (test code 0.56 10*3/uL 0.36-1.02 = 742-7) EOS x10^3 (test code = 0.10 10*3/uL 0.06-0.53 711-2) BASO x10^3 (test code 0.04 10*3/uL 0.01-0.09 = 704-7) Lab Interpretation Abnormal (test code = 17003-7) [facility] 20:21:19 Test Item Value Reference Range Interpretation Comments LIPASE (test code = 3566298648) 307 U/L 0-220 H Lab Interpretation (test code = Abnormal 69005-3) [facility]OL[facility] (61995)2021-05-20 20:21:19 Test Item Value Reference Range Interpretation Comments NA (test code = 132 mmol/L 135-145 L 3175498277) K (test code = 4.3 mmol/L 3.5-5.0 3691589628) CL (test code = 100 mmol/L 98-108 8989764555) CO2 TOTAL (test code = 18 mmol/L 23-31 L 0111970464) AGAP (test code = 2-16 8712039162) BUN (test code = 32 mg/dL 7-23 H 9338748114) GLUCOSE (test code = 100 mg/dL 70-110 3437452028) CREATININE (test code = 1.76 mg/dL 0.60-1.25 H 7454035116) TOTAL BILI (test code = 0.7 mg/dL 0.1-1.2 9880697209) CALCIUM (test code = 9.6 mg/dL 8.6-10.6 7472750431) T PROTEIN (test code = 7.5 g/dL 6.3-8.2 8572514771) ALBUMIN (test code = 4.7 g/dL 3.5-5.0 9880116678) ALK PHOS (test code = 104 U/L 34-122 1979104619) ALTv (test code = 23 U/L 5-50 1742-6) AST(SGOT) (test code = 29 U/L 13-40 1607249933) eGFR (test code = mL/min/1.73m2 7994703035) GILBERTO (test code = GILBERTO) Association of [...] tests). Lab Interpretation Abnormal (test code = 57806-8) [facility] WITH [id number] 20:15:39 Test Item Value Reference Range Interpretation Comments WBC (test code = See_Comment [Automated message] 6690-2) The system [employer] generated this result transmitted ref erence range: 4.20 - 1 0.70 10*3/?L. The re ference range was not u sed to interpret this result as normal/abnor mal. RBC (test code = See_Comment [Automated message] 789-8) The system [employer] generated this result transmitted ref erence range: [...] RDW-SD (test code 44.8 fL 38.5-51.6 = 35171-1) RDW-CV (test code 13.7 % 12.1-15.4 = 788-0) PLT (test code = See_Comment [Automated message] 777-3) The system [employer] generated this result transmitted ref erence range: 150 - 32 8 10*3/?L. The re ference range was not u sed to interpret this result as normal/abnor mal. MPV (test code = 9.8 fL 9.8-13.0 60472-5) NRBC/100 WBC (test See_Comment [Automat ed message] code = 1529118399) [employer] which generated this result transmitted ref erence range: 0.0 - 10 .0 /100 WBCs. The refer ence range was not u sed to interpret this result as normal/abnor mal. NRBC x10^3 (test <0.01 See_Comment [Automated message] code = 8710013300) The syste m which generated this result transmitted ref erence range: 10*3/?L. The reference range was not used to interpr et this result as normal/abnormal . GRAN MAT (NEUT) % 55.9 % (test code = 770-8) IMM GRAN % (test 0.40 % code = 9735059349) LYMPH % (test code 32.5 % = 736-9) MONO % (test code 9.4 % = 5905-5) EOS % (test code = 1.2 % 713-8) BASO % (test code 0.6 % = 706-2) GRAN MAT 3.87 10*3/uL 1.99-6.95 x10^3(ANC) (test code = 9150289850) IMM GRAN x10^3 0.03 10*3/uL 0.00-0.06 (test code = 2163709218) LYMPH x10^3 (test 2.25 10*3/uL 1.09-3.23 code = 731-0) MONO x10^3 (test 0.65 10*3/uL 0.36-1.02 code = 742-7) EOS x10^3 (test 0.08 10*3/uL 0.06-0.53 code = 711-2) BASO x10^3 (test 0.04 10*3/uL 0.01-0.09 code = 704-7) [facility] Whole Rkrwz4182-31-05 20:07:57 Test Item Value Reference Range Interpretation Comments LACTIC ACID (test code = 1.81 mmol/L 0.50-2.20 6520874219) Lab Interpretation (test code = Normal 38409-1) [facility] (NA, K, CL, CO2, GLUCOSE, BUN, CREATININE, CA)2021-05-08 10:32:35 Test Item Value Reference Range Interpretation Comments NA (test code = 135 mmol/L 135-145 7426674630) K (test code = 4.2 mmol/L 3.5-5.0 2563285322) CL (test code = 106 mmol/L 98-108 6372702859) CO2 TOTAL (test code 23 mmol/L 23-31 = 8194225201) AGAP (test code = 2-16 6490955946) BUN (test code = 22 mg/dL 7-23 8823067302) GLUCOSE (test code = 87 mg/dL 70-110 8293173167) CREATININE (test code 1.21 mg/dL 0.60-1.25 = 6003634784) CALCIUM (test code = 8.7 mg/dL 8.6-10.6 3543544081) eGFR (test code = mL/min/1.73m2 2364551219) GILBERTO (test code = GILBERTO) Association of [...] or urine or abnormalities in imaging tests). [facility] Metabolic Panel (NA, K, CL, CO2, GLUCOSE, BUN, CREATININE, CA)2021-05-08 10:32:35 Test Item Value Reference Range Interpretation Comments NA (test code = 135 mmol/L 135-145 4578400780) K (test code = 4.2 mmol/L 3.5-5.0 8562089187) CL (test code = 106 mmol/L 98-108 0644941640) CO2 TOTAL (test code 23 mmol/L 23-31 = 0409826394) AGAP (test code = 2-16 2936281376) BUN (test code = 22 mg/dL 7-23 1284206834) GLUCOSE (test code = 87 mg/dL 70-110 0814823825) CREATININE (test code 1.21 mg/dL 0.60-1.25 = 4194103641) CALCIUM (test code = 8.7 mg/dL 8.6-10.6 5685982666) eGFR (test code = mL/min/1.73m2 6485969995) GILBERTO (test code = GILBERTO) Association of [...] or urine or abnormalities in imaging tests). [facility] with Spolhwwijtln5803-88-06 10:12:52 Test Item Value Reference Range Interpretation [...] RDW-SD (test code = 48.4 fL 38.5-51.6 78328-2) RDW-CV (test code = 14.0 % 12.1-15.4 788-0) PLT (test code = See_Comment [Automated 777-3) message] The sy stem which generated this result transmitted reference range : 150 - 328 10*3/ ?L. The reference r meredith was not used to interpret this result as normal/abnormal . MPV (test code = 9.6 fL 9.8-13.0 L 26139-9) NRBC/100 WBC (test See_Comment [Automat ed code = 6118579315) message] The system which generated this result transmitted reference range : 0.0 - 10.0 /100 WBCs. The refer ence range was not u sed to interpret th is result as normal/abnormal . NRBC x10^3 (test code <0.01 See_Comment [Auto mated = 5047156182) message] The s ystem which generated this result transmitted reference range : 10*3/?L. The reference range was not used to interpret this result as normal/abnormal . GRAN MAT (NEUT) % 55.6 % (test code = 770-8) IMM GRAN % (test code 0.20 % = 5170987804) LYMPH % (test code = 31.5 % 736-9) MONO % (test code = 9.9 % 5905-5) EOS % (test code = 2.0 % 713-8) BASO % (test code = 0.8 % 706-2) GRAN MAT x10^3(ANC) 2.76 10*3/uL 1.99-6.95 (test code = 5820466342) IMM GRAN x10^3 (test <0.03 0.00-0.06 code = 1567116597) LYMPH x10^3 (test code 1.56 10*3/uL 1.09-3.23 = 731-0) MONO x10^3 (test code 0.49 10*3/uL 0.36-1.02 = 742-7) EOS x10^3 (test code = 0.10 10*3/uL 0.06-0.53 711-2) BASO x10^3 (test code 0.04 10*3/uL 0.01-0.09 = 704-7) Lab Interpretation Abnormal (test code = 11942-5) [facility] with Cidknhbqogau5419-63-58 10:12:52 Test Item Value Reference Range Interpretation Comments WBC (test code = See_Comment [Automated 0690-2) message] The sy stem which generated this [...] RDW-SD (test code = 48.4 fL 38.5-51.6 50318-1) RDW-CV (test code = 14.0 % 12.1-15.4 788-0) PLT (test code = See_Comment [Automated 777-3) message] The sy stem which generated this result transmitted reference range : 150 - 328 10*3/ ?L. The reference r meredith was not used to interpret this result as normal/abnormal . MPV (test code = 9.6 fL 9.8-13.0 L 91564-6) NRBC/100 WBC (test See_Comment [Automat ed code = [id number]) message] The system which generated this result transmitted reference range : 0.0 - 10.0 /100 WBCs. The refer ence range was not u sed to interpret th is result as normal/abnormal . NRBC x10^3 (test code <0.01 See_Comment [Auto mated = [id number]) message] The s ystem which generated this result transmitted reference range : 10*3/?L. The reference range was not used to interpret this result as normal/abnormal . GRAN MAT (NEUT) % 55.6 % (test code = 770-8) IMM GRAN % (test code 0.20 % = [id number]) LYMPH % (test code = 31.5 % 736-9) MONO % (test code = 9.9 % 5905-5) EOS % (test code = 2.0 % 713-8) BASO % (test code = 0.8 % 706-2) GRAN MAT x10^3(ANC) 2.76 10*3/uL 1.99-6.95 (test code = [id number]) IMM GRAN x10^3 (test <0.03 0.00-0.06 code = 0717797571) LYMPH x10^3 (test code 1.56 10*3/uL 1.09-3.23 = 731-0) MONO x10^3 (test code 0.49 10*3/uL 0.36-1.02 = 742-7) EOS x10^3 (test code = 0.10 10*3/uL 0.06-0.53 711-2) BASO x10^3 (test code 0.04 10*3/uL 0.01-0.09 = 704-7) Lab Interpretation Abnormal (test code = 30112-8) [facility] METABOLIC PANEL (NA, K, CL, CO2, GLUCOSE, BUN, CREATININE, CA)2021-05-08 01:11:57 Test Item Value Reference Range Interpretation Comments NA (test code = 134 mmol/L 135-145 L [id number]) K (test code = 4.7 mmol/L 3.5-5.0 [id number]) CL (test code = 100 mmol/L 98-108 6002682037) CO2 TOTAL (test code = 24 mmol/L 23-31 7892729727) AGAP (test code = 2-16 1117599995) BUN (test code = 27 mg/dL 7-23 H [id number]) GLUCOSE (test code = 94 mg/dL 70-110 6790142928) CREATININE (test code = 1.31 mg/dL 0.60-1.25 H 1002031446) CALCIUM (test code = 9.5 mg/dL 8.6-10.6 7425347941) eGFR (test code = mL/min/1.73m2 5535389996) GILBERTO (test code = GILBERTO) Association of [...] tests). Lab Interpretation Abnormal (test code = 29001-0) [facility]31442[facility] (ALB,T.PRO,BILI T,BU/BC,ALT,AST,ALK PHOS)2021-05-08 01:11:57 Test Item Value Reference Range Interpretation Comments TOTAL BILI (test code = 5930959102) 0.8 mg/dL 0.1-1.1 BILI UNCON (test code = 3554537020) 0.2 mg/dL 0.1-1.1 BILI CONJ (test code = 6468265517) 0.0 mg/dL 0.0-0.3 T PROTEIN (test code = 5458431813) 7.1 g/dL 6.3-8.2 ALBUMIN (test code = 7284125232) 4.4 g/dL 3.5-5.0 ALK PHOS (test code = 1124132343) 88 U/L 34-122 ALTv (test code = 1742-6) 40 U/L 5-50 AST(SGOT) (test code = 7938713045) 38 U/L 13-40 Lab Interpretation (test code = Normal 30383-7) [facility] (NA, K, CL, CO2, GLUCOSE, BUN, CREATININE, CA)2021-05-08 01:11:57 Test Item Value Reference Range Interpretation Comments NA (test code = 134 mmol/L 135-145 L 7365341023) K (test code = 4.7 mmol/L 3.5-5.0 1230257637) CL (test code = 100 mmol/L 98-108 2437415532) CO2 TOTAL (test code = 24 mmol/L 23-31 8151614085) AGAP (test code = 2-16 9625755863) BUN (test code = 27 mg/dL 7-23 H 9293890700) GLUCOSE (test code = 94 mg/dL 70-110 8066922372) CREATININE (test code = 1.31 mg/dL 0.60-1.25 H 2448793881) CALCIUM (test code = 9.5 mg/dL 8.6-10.6 3630107843) eGFR (test code = mL/min/1.73m2 5585128479) GILBERTO (test code = GILBERTO) Association of [...] tests). Lab Interpretation Abnormal (test code = 41062-1) [facility]10645[facility] (ALB,T.PRO,BILI T,BU/BC,ALT,AST,ALK PHOS)2021-05-08 01:11:57 Test Item Value Reference Range Interpretation Comments TOTAL BILI (test code = 8848297629) 0.8 mg/dL 0.1-1.1 BILI UNCON (test code = 6859991984) 0.2 mg/dL 0.1-1.1 BILI CONJ (test code = 9431194517) 0.0 mg/dL 0.0-0.3 T PROTEIN (test code = 3466884701) 7.1 g/dL 6.3-8.2 ALBUMIN (test code = 8320778331) 4.4 g/dL 3.5-5.0 ALK PHOS (test code = 0337062594) 88 U/L 34-122 ALTv (test code = 1742-6) 40 U/L 5-50 AST(SGOT) (test code = 9748598637) 38 U/L 13-40 Lab Interpretation (test code = Normal 66324-1) [facility] WITH [id number] 00:59:56 Test Item Value Reference Range Interpretation Comments WBC (test code = See_Comment [Automated 0390-2) message] The sy stem which generated this result transmitted reference range : 4.20 - 10.70 10*3/?L. The reference range was not used to interpret this result as normal/abnormal . RBC (test code = See_Comment L [Automated 128-8) message] The sy stem which generated this [...] RDW-SD (test code = 46.9 fL 38.5-51.6 17710-2) RDW-CV (test code = 13.9 % 12.1-15.4 788-0) PLT (test code = See_Comment [Automated 777-3) message] The sy stem which generated this result transmitted reference range : 150 - 328 10*3/ ?L. The reference r meredith was not used to interpret this result as normal/abnormal . MPV (test code = 10.0 fL 9.8-13.0 09833-1) NRBC/100 WBC (test See_Comment [Automat ed code = 5580385567) message] The system which generated this result transmitted reference range : 0.0 - 10.0 /100 WBCs. The refer ence range was not u sed to interpret th is result as normal/abnormal . NRBC x10^3 (test code <0.01 See_Comment [Auto mated = 8781863164) message] The s ystem which generated this result transmitted reference range : 10*3/?L. The reference range was not used to interpret this result as normal/abnormal . GRAN MAT (NEUT) % 53.9 % (test code = 770-8) IMM GRAN % (test code 0.30 % = 1590046893) LYMPH % (test code = 32.0 % 736-9) MONO % (test code = 11.6 % 5905-5) EOS % (test code = 1.6 % 713-8) BASO % (test code = 0.6 % 706-2) GRAN MAT x10^3(ANC) 3.67 10*3/uL 1.99-6.95 (test code = 2870807475) IMM GRAN x10^3 (test <0.03 0.00-0.06 code = 9331726246) LYMPH x10^3 (test code 2.18 10*3/uL 1.09-3.23 = 731-0) MONO x10^3 (test code 0.79 10*3/uL 0.36-1.02 = 742-7) EOS x10^3 (test code = 0.11 10*3/uL 0.06-0.53 711-2) BASO x10^3 (test code 0.04 10*3/uL 0.01-0.09 = 704-7) Lab Interpretation Abnormal (test code = 48759-7) [facility] WITH [id number] 00:59:56 Test Item Value Reference Range Interpretation [...] RDW-SD (test code = 46.9 fL 38.5-51.6 75855-9) RDW-CV (test code = 13.9 % 12.1-15.4 788-0) PLT (test code = See_Comment [Automated 777-3) message] The sy stem which generated this result transmitted reference range : 150 - 328 10*3/ ?L. The reference r meredith was not used to interpret this result as normal/abnormal . MPV (test code = 10.0 fL 9.8-13.0 73014-0) NRBC/100 WBC (test See_Comment [Automat ed code = 3504055010) message] The system which generated this result transmitted reference range : 0.0 - 10.0 /100 WBCs. The refer ence range was not u sed to interpret th is result as normal/abnormal . NRBC x10^3 (test code <0.01 See_Comment [Auto mated = 4972153988) message] The s ystem which generated this result transmitted reference range : 10*3/?L. The reference range was not used to interpret this result as normal/abnormal . GRAN MAT (NEUT) % 53.9 % (test code = 770-8) IMM GRAN % (test code 0.30 % = 1156710638) LYMPH % (test code = 32.0 % 736-9) MONO % (test code = 11.6 % 5905-5) EOS % (test code = 1.6 % 713-8) BASO % (test code = 0.6 % 706-2) GRAN MAT x10^3(ANC) 3.67 10*3/uL 1.99-6.95 (test code = 0523907067) IMM GRAN x10^3 (test <0.03 0.00-0.06 code = 4936834001) LYMPH x10^3 (test code 2.18 10*3/uL 1.09-3.23 = 731-0) MONO x10^3 (test code 0.79 10*3/uL 0.36-1.02 = 742-7) EOS x10^3 (test code = 0.11 10*3/uL 0.06-0.53 711-2) BASO x10^3 (test code 0.04 10*3/uL 0.01-0.09 = 704-7) Lab Interpretation Abnormal (test code = 63695-1) [facility] W/AUTO [id number] 09:20:00 Test Item Value Reference Range Interpretation [...] (test code NO = MDIFF) CBC W/AUTO [id number] 08:59:00 Test Item Value Reference Range Interpretation [...] REQUIRED (test code = MDIFF) BASIC METABOLIC [id number] 08:21:00 Test Item Value Reference Range Interpretation [...] 8.4 mg/dL 8.0-10.5 N CA) BASIC METABOLIC [id number] 08:34:00 Test Item Value Reference Range Interpretation [...] 8.4 mg/dL 8.0-10.5 N CA) CBC W/AUTO [id number] 07:41:00 Test Item Value Reference Range Interpretation [...] = MDIFF) UA RFLX MICR CULT IF [id number] 10:10:00 Test Item Value Reference Range Interpretation [...] Suprapubic Pain Temperature > 100.4 FSpecimen Description[facility] [id number] 04:13:00 Test Item Value Reference Range Interpretation [...] mg/dL 8.0-10.5 N CA) Coronavirus 2019 nCoV [id number] 22:03:00 Test Item Value Reference Range Interpretation Comments Coronavirus 2019 Negative Negative Performed b y certified nCoV Bedside (test and turn up technician at [place] [facility] code = CtrNegative res ults should [id number]) be treated as presumptive and, ifinconsis tent with clinical signs and symptoms or necessaryfor patient management, fifi uld be tested with an alternativemole cular assay. Negative result s do not preclude BFYK-WnH-8ehroj tion and should not be u sed as the sole basis forp atient management deci sions. Negative result s should beconsidered in the context of a patient's recent exposures,histo ry, presence of clinical sig ns and symptoms consis tentwith COVID-19. CBC W/AUTO [id number] 21:11:00 Test Item Value Reference Range Interpretation [...] MX#) 0.6 k/mm3 0.1-0.8 N BASIC METABOLIC [id number] 19:00:00 Test Item Value Reference Range Interpretation [...] POCGLU) 92 MG/DL - CT ABD PELVIS W/[id number] 00:00:00 [facility] 1970 Sex: MName: DORA JOSEPH FSED : 1970 Age/S: 51 / M [address] [facility] Unit #: [id number] Loc: [place] Erazo [address] Phys: Marcello Benoit MD Acct: [id number] Dis Date: Status: REG ERPHONE #: Exam Date: 04/28/20211913 FAX #: Reason: epigastric and LLQ pain, R-sided colostomy EXAMS: CPT CODE: [id number] CT ABD PELVIS W/CONT 11732 PROCEDURE INFORMATION: Exam: CT Abdomen And Pelvis [...] fluid collection. Vasculature: There is mild atherosclerotic calcificationof the coronary arteries. The aorta demonstrates mild atherosclerotic calcification. Lymph nodes: Unremarkable. No enlarged lymph nodes. Urinary bladder: Urinary bladder is contracted otherwise unremarkable. PAGE 1 Signed Report (CONTINUED) Name: DORA JOSEPH FSED : 1970 Age/S: 51 / M [address] [facility] Unit #: [id number] Loc: [place]iseo Erazo [address] Phys: Marcello Benoit MD Acct: [id number] Dis Date: Status: REG ER PHONE #: Exam Date: 04/28/2021 6808 FAX #: Reason: epigastric and LLQ pain, R-sided colostomy EXAMS: CPT CODE: [id number] CT ABD PELVIS W/CONT 59221 <Continued> Reproductive: Unremarkable as visualized. Bones/joints: Unremarkable. No acute fracture. Soft tissues: Unremarkable. IMPRESSION: 1. 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 2. Mild long segment bowel wall thickening/mucosal prominence compatible with an enteritis. No evidence for obstruction. at 1955 Reported and signed by: Hector Nichols M.D. CC: Marcello Benoit MD Technologist:Stephanie Albrecht, RT(R)(CT) CTDI: DLP: Trnscb Date/Time: 04/28/2021 (1955) Magi Orig Print D/T: S: 04/28/2021 (1955) PAGE 2 Signed ReportBasic Metabolic Panel (NA, K, CL, CO2, GLUCOSE, BUN, CREATININE, CA)2020-08-23 10:29:00 Test Item Value Reference Range Interpretation Comments NA (test code = 139 mmol/L 135-145 0427476992) K (test code = 4.0 mmol/L 3.5-5 8258870278) CL (test code = 108 mmol/L 98-108 3582086000) CO2 TOTAL (test code = 22 mmol/L 23-31 L 2316194867) AGAP (test code = 2-16 3048751511) BUN (test code = 25 mg/dL 7-23 H 1298711962) GLUCOSE (test code = 91 mg/dL 70-110 9460859704) CREATININE (test code = 1.14 mg/dL 0.6-1.25 1049830916) CALCIUM (test code = 8.9 mg/dL 8.6-10.6 0464840341) eGFR Calculation mL/min/1.73m2 (Non-) (test code = 3083660033) eGFR Calculation mL/min/1.73m2 () (test code = 3828735063) GILBERTO (test code = GILBERTO) Association of [...] tests). Lab Interpretation Abnormal (test code = 88695-8) [facility] / [id number] 10:13:00 Test Item Value Reference Range Interpretation Comments WBC (test code = 6690-2) See_Comment [A utomated message] The system [employer] generated this result transmit dain reference range : 4.20 - 10.70 10*3/?L. The reference range was not used to interpret this result as normal/abnormal . RBC (test code = 789-8) See_Comment L [Au tomated message] The system [employer] generated this result transmit dain reference range [...] 777-3) See_Comment [Au tomated message] The system [employer] generated this result transmit dain reference range : 150 - 328 10*3/?L. The reference range was not used to interpret this result as normal/abnormal . MPV (test code = 9.0 fL 9.8-13 L 49076-7) RDW-CV (test code = 18.7 % 12.1-15.4 H 788-0) RDW-SD (test code = 59.7 fL 38.5-51.6 H 44042-1) NRBC x10^3 (test code = <0.01 See_Comment [Au tomated message] 6754682520) The system [employer] generated this result transmit dain reference range : 10*3/?L. The reference range was not used to interpret this result as normal/abnormal . NRBC/100 WBC (test code See_Comment [Au tomated message] = 6975601386) The system [employer] generated this result transmit dain reference range : 0.0 - 10.0 /100 WBC s. The reference r meredith was not used to interpret this result as normal/abnormal . IPF % (test code = 2972158018) Lab Interpretation (test Abnormal code = 30396-8) [facility] (ID NOW RAPID TESTING)2020-08-23 00:56:00 Test Item Value Reference Range Interpretation Comments SARS-CoV-2 Rapid ID NOW Not Detected Not Detected (test code = 60934-6) GILBERTO (test code = GILBERTO) ID NOW COVID-19 Assay is an isothermal nucleic acid amplification test intended for the qualitative detection of nucleic acid from SARS-CoV-2 viral RNA in nasopharyngeal ([employer]SING [employer] ANALYST) specimens. It is used under Emergency Use [...] indicated. Lab Interpretation Normal (test code = 02075-0) [facility] (NA, K, CL, CO2, GLUCOSE, BUN, CREATININE, CA)2020-08-22 22:36:00 Test Item Value Reference Range Interpretation Comments NA (test code = 133 mmol/L 135-145 L 2372499296) K (test code = 4.5 mmol/L 3.5-5 2417805472) CL (test code = 104 mmol/L 98-108 6584362782) CO2 TOTAL (test code = 25 mmol/L 23-31 3467651632) AGAP (test code = 2-16 4786651243) BUN (test code = 27 mg/dL 7-23 H 0271821804) GLUCOSE (test code = 94 mg/dL 70-110 4994830840) CREATININE (test code = 1.33 mg/dL 0.6-1.25 H 6036983257) CALCIUM (test code = 9.5 mg/dL 8.6-10.6 0290047737) eGFR Calculation mL/min/1.73m2 (Non-) (test code = 7884599600) eGFR Calculation mL/min/1.73m2 () (test code = 9539417478) GILBERTO (test code = GILBERTO) Association of [...] tests). Lab Interpretation Abnormal (test code = 50309-5) [facility] (ALB, T.PRO, BILI T, BU/BC, ALT, AST, ALK PHOS)2020-08-22 22:36:00 Test Item Value Reference Range Interpretation Comments TOTAL BILI (test code = 4279208645) 0.4 mg/dL 0.1-1.1 BILI UNCON (test code = 7111038920) 0.1 mg/dL 0.1-1.1 BILI CONJ (test code = 5640500509) 0.0 mg/dL 0-0.3 T PROTEIN (test code = 0508376885) 6.8 g/dL 6.3-8.2 ALBUMIN (test code = 6349030530) 4.0 g/dL 3.5-5 ALK PHOS (test code = 0692401323) 78 U/L 34-122 ALTv (test code = 1742-6) 35 U/L 5-50 AST(SGOT) (test code = 5406713332) 29 U/L 13-40 Lab Interpretation (test code = Normal 20661-3) [facility] with [id number] 22:15:00 Test Item Value Reference Range Interpretation [...] (test code = 60.6 fL 38.5-51.6 H 44006-2) RDW-CV (test code = 19.0 % 12.1-15.4 H 788-0) PLT (test code = See_Comment [Automated 777-3) message] The sy stem which generated this result transmitted reference range : 150 - 328 10*3/ ?L. The reference r meredith was not used to interpret this result as normal/abnormal . MPV (test code = 9.3 fL 9.8-13 L 86045-5) NRBC/100 WBC (test See_Comment [Automat ed code = 6935877185) message] The system which generated this result transmitted reference range : 0.0 - 10.0 /100 WBCs. The refer ence range was not u sed to interpret th is result as normal/abnormal . NRBC x10^3 (test code <0.01 See_Comment [Auto mated = 2396382745) message] The s ystem which generated this result transmitted reference range : 10*3/?L. The reference range was not used to interpret this result as normal/abnormal . GRAN MAT (NEUT) % 58.6 % (test code = 770-8) IMM GRAN % (test code 0.60 % = 7298141545) LYMPH % (test code = 28.2 % 736-9) MONO % (test code = 9.5 % 5905-5) EOS % (test code = 2.4 % 713-8) BASO % (test code = 0.7 % 706-2) GRAN MAT x10^3(ANC) 3.14 10*3/uL 1.99-6.95 (test code = 9993255223) IMM GRAN x10^3 (test 0.03 10*3/uL 0-0.06 code = 6333837969) LYMPH x10^3 (test code 1.51 10*3/uL 1.09-3.23 = 731-0) MONO x10^3 (test code 0.51 10*3/uL 0.36-1.02 = 742-7) EOS x10^3 (test code = 0.13 10*3/uL 0.06-0.53 711-2) BASO x10^3 (test code 0.04 10*3/uL 0.01-0.09 = 704-7) Lab Interpretation Abnormal (test code = 18442-8) [facility] District[facility] SOFT TISSUE NECK W [id number] 00:47:10Impression: 1. Patent aerodigestive tract.2. No discrete [...] glands are normal. Thyroid gland is unremarkable. Database Consultant spaces are normal. Buccal spaces are normal. [...] submandibular glands are normal. Thyroid gland is unremarkable.Database Consultant spaces are normal. Buccal spaces are normal. [...] or abscess is identified.RL: [id number] of Report [facility]COVID[facility] (ID NOW RAPID TESTING)2020-07-09 23:23:00 Test Item Value Reference Range Interpretation Comments SARS-CoV-2 Rapid ID NOW Not Detected Not Detected (test code = 92079-6) GILBERTO (test code = GILBERTO) ID NOW COVID-19 Assay is an isothermal nucleic acid amplification test intended for the qualitative detection of nucleic acid from SARS-CoV-2 viral RNA in nasopharyngeal ([employer] ANALYST) specimens. It is used under Emergency Use [...] indicated. Lab Interpretation Normal (test code = 21672-9) [facility] DistrictUrinalysis2020-11-16 23:21:00 Test Item Value Reference Range Interpretation Comments APPEARANCE (test code = Clear Clear 1116219257) COLOR (test code = Yellow Yellow 3248539899) PH (test code = 4.8-8.0 0537813339) SP GRAVITY (test code = 1.003-1.030 6087988403) GLU U QUAL (test code = Normal Normal 1406223689) BLOOD (test code = Negative Negative 9301181286) KETONES (test code = Negative Negative 4737947186) PROTEIN (test code = 30 mg/dL Negative A 2887-8) UROBILIN (test code = Normal Normal 7495668213) BILIRUBIN (test code = Negative Negative 5943303669) NITRITE (test code = Negative Negative 3487003081) LEUK ROGER (test code = Negative Negative 4083283644) RBC/HPF (test code = <1 See_Comment [Autom ated message] 8241813283) The system [employer] generated this result transmitted ref erence range: 0 - 3 HP F. The reference range was not used to int erpret this result as normal/abnormal . WBC/HPF (test code = See_Comment [Autom ated message] 3913971516) The system [employer] generated this result transmitted ref erence range: 0 - 5 HP F. The reference range was not used to int erpret this result as normal/abnormal . BACTERIA (test code = Negative Negative 3322128448) MUCOUS (test code = Moderate Negative LPF A 9812974729) HYAL CAST (test code = See_Comment H [Aut omated message] 9858548812) The system [employer] generated this result transmitted ref erence range: <=2 LPF. The reference range was not used to int erpret this result as normal/abnormal . Lab Interpretation (test Abnormal code = 93385-5) [facility] District[facility] (NA, K, CL, CO2, GLUCOSE, BUN, CREATININE, CA)2020-07-09 23:20:00 Test Item Value Reference Range Interpretation Comments NA (test code = 135 mmol/L 135-145 8512350121) K (test code = 3.9 mmol/L 3.5-5 7797750603) CL (test code = 107 mmol/L 98-108 7186866114) CO2 TOTAL (test code = 20 mmol/L 23-31 L 4309720280) AGAP (test code = 2-16 8300973358) BUN (test code = 27 mg/dL 7-23 H 1827594336) GLUCOSE (test code = 86 mg/dL 70-110 5754757042) CREATININE (test code = 1.11 mg/dL 0.6-1.25 2674669179) CALCIUM (test code = 9.0 mg/dL 8.6-10.6 2170140947) eGFR Calculation mL/min/1.73m2 (Non-) (test code = 8709052085) eGFR Calculation mL/min/1.73m2 () (test code = 3075271925) GILBERTO (test code = GILBERTO) Association of [...] tests). Lab Interpretation Abnormal (test code = 55333-3) [facility] District[facility]RE[facility] S[facility] FOR GROUP [id number] 23:11:00 Test Item Value Reference Range Interpretation Comments Streptococcus pyogenes (group A) Negative Negative antigen (test code = 38665-4) Lab Interpretation (test code = Normal 85170-5) [facility] with Tvrfccbyzykq5528-50-09 23:02:00 Test Item Value Reference Range Interpretation Comments WBC (test code = See_Comment [Automated 8176-2) message] The sy stem which generated this [...] (test code = 55.5 fL 38.5-51.6 H 62443-0) RDW-CV (test code = 18.9 % 12.1-15.4 H 788-0) PLT (test code = See_Comment [Automated 777-3) message] The sy stem which generated this result transmitted reference range : 150 - 328 10*3/ ?L. The reference r meredith was not used to interpret this result as normal/abnormal . MPV (test code = 8.9 fL 9.8-13 L 55643-7) NRBC/100 WBC (test See_Comment [Automat ed code = 9127825571) message] The system which generated this result transmitted reference range : 0.0 - 10.0 /100 WBCs. The refer ence range was not u sed to interpret th is result as normal/abnormal . NRBC x10^3 (test code <0.01 See_Comment [Auto mated = 1792336980) message] The s ystem which generated this result transmitted reference range : 10*3/?L. The reference range was not used to interpret this result as normal/abnormal . GRAN MAT (NEUT) % 59.4 % (test code = 770-8) IMM GRAN % (test code 0.20 % = 1110056410) LYMPH % (test code = 29.9 % 736-9) MONO % (test code = 9.0 % 5905-5) EOS % (test code = 1.2 % 713-8) BASO % (test code = 0.3 % 706-2) GRAN MAT x10^3(ANC) 3.56 10*3/uL 1.99-6.95 (test code = 2441777115) IMM GRAN x10^3 (test <0.03 0-0.06 code = 8016050425) LYMPH x10^3 (test code 1.79 10*3/uL 1.09-3.23 = 731-0) MONO x10^3 (test code 0.54 10*3/uL 0.36-1.02 = 742-7) EOS x10^3 (test code = 0.07 10*3/uL 0.06-0.53 711-2) BASO x10^3 (test code <0.03 0.01-0.09 = 704-7) Lab Interpretation Abnormal (test code = 08630-1) [facility]ysis2020-[facility] 13:37:00 Test Item Value Reference Range Interpretation Comments APPEARANCE (test code = Hazy Clear A 7249207269) COLOR (test code = Yellow Yellow 6394972003) PH (test code = 4.8-8.0 5210657688) SP GRAVITY (test code = 1.003-1.030 H 7292093943) GLU U QUAL (test code = Normal Normal 7076774931) BLOOD (test code = Negative Negative 5373595283) KETONES (test code = Negative Negative 8292303704) PROTEIN (test code = Negative Negative 2887-8) UROBILIN (test code = Normal Normal 7123071356) BILIRUBIN (test code = Negative Negative 1019313178) NITRITE (test code = Negative Negative 8868980661) LEUK ROGER (test code = Negative Negative 8393207092) RBC/HPF (test code = See_Comment H [Autom ated message] 4076842628) The system [employer] generated this result transmitted ref erence range: 0 - 3 HP F. The reference range was not used to int erpret this result as normal/abnormal . WBC/HPF (test code = See_Comment [Autom ated message] 9141848340) The system [employer] generated this result transmitted ref erence range: 0 - 5 HP F. The reference range was not used to int erpret this result as normal/abnormal . BACTERIA (test code = Negative Negative 8116023327) MUCOUS (test code = Moderate Negative LPF A 5520256516) CA OXALATE (test code = See_Comment [Au tomated message] 6816261255) The system [employer] generated this result transmitted ref erence range: <=1 HPF. The reference range was not used to int erpret this result as normal/abnormal . SPERM (test code = See_Comment H [Automat ed message] 8620733812) The system [employer] generated this result transmitted ref erence range: <=1 HPF. The reference range was not used to int erpret this result as normal/abnormal . HYAL CAST (test code = See_Comment H [Aut omated message] 8259925691) The system [employer] generated this result transmitted ref erence range: <=2 LPF. The reference range was not used to int erpret this result as normal/abnormal . Lab Interpretation (test Abnormal code = 71949-8) [facility]CT [facility]OMEN PEL[facility] W [id number] 13:22:00CT Abdomen and Pelvis with intravenous contrast. [...] is collapsed with diffuse thickening of the linsdey. Peritoneum: ?Thickened soft tissues noted in the [...] infection. Left seminal vesicleshowed no significant enhancement. Wymb, Radiant Results Inft User - 06/05/2020 8:23 [...] sign of infection. Left seminal vesicleshowed no significantenhancement.[facility] [id number] 12:40:00 Test Item Value Reference Range Interpretation Comments TROPONIN I (test <0.012 See_Comment [Automated code = 4786059656) message] The system which generated this result [...] ? Lab Interpretation Normal (test code = 55174-6) [facility] (NA, K, CL, CO2, GLUCOSE, BUN, CREATININE, CA)2020-06-05 12:28:00 Test Item Value Reference Range Interpretation Comments NA (test code = 139 mmol/L 135-145 8450984030) K (test code = 4.4 mmol/L 3.5-5 5615335504) CL (test code = 112 mmol/L 98-108 H 1296071287) CO2 TOTAL (test code = 24 mmol/L 23-31 1800342016) AGAP (test code = 2-16 8527914206) BUN (test code = 23 mg/dL 7-23 3338732176) GLUCOSE (test code = 88 mg/dL 70-110 0856844743) CREATININE (test code = 0.96 mg/dL 0.6-1.25 4032977590) CALCIUM (test code = 9.5 mg/dL 8.6-10.6 5067592212) eGFR Calculation mL/min/1.73m2 (Non-) (test code = 3864499306) eGFR Calculation mL/min/1.73m2 () (test code = 4246850493) GILBERTO (test code = GILBERTO) Association of [...] tests). Lab Interpretation Abnormal (test code = 59586-4) [facility] (ALB, T.PRO, BILI T, BU/BC, ALT, AST, ALK PHOS)2020-06-05 12:28:00 Test Item Value Reference Range Interpretation Comments TOTAL BILI (test code = 3644723047) 0.5 mg/dL 0.1-1.1 BILI UNCON (test code = 7139223074) 0.3 mg/dL 0.1-1.1 BILI CONJ (test code = 4023429028) 0.0 mg/dL 0-0.3 T PROTEIN (test code = 5536916522) 6.6 g/dL 6.3-8.2 ALBUMIN (test code = 8146624351) 3.7 g/dL 3.5-5 ALK PHOS (test code = 9486014955) 79 U/L 34-122 ALTv (test code = 1742-6) 23 U/L 5-50 AST(SGOT) (test code = 2015477386) 27 U/L 13-40 Lab Interpretation (test code = Normal 93547-0) [facility] DistrictLipase [id number] 12:28:00 Test Item Value Reference Range Interpretation Comments LIPASE (test code = 5101384996) 150 U/L 0-220 Lab Interpretation (test code = Normal 30576-3) [facility] DistrictCBC with [id number] 12:11:00 Test Item Value Reference Range Interpretation [...] (test code = 62.2 fL 38.5-51.6 H 40252-0) RDW-CV (test code = 20.0 % 12.1-15.4 H 788-0) PLT (test code = See_Comment [Automated 777-3) message] The sy stem which generated this result transmitted reference range : 150 - 328 10*3/ ?L. The reference r meredith was not used to interpret this result as normal/abnormal . MPV (test code = 10.0 fL 9.8-13 46615-7) NRBC/100 WBC (test See_Comment [Automat ed code = 0073893788) message] The system which generated this result transmitted reference range : 0.0 - 10.0 /100 WBCs. The refer ence range was not u sed to interpret th is result as normal/abnormal . NRBC x10^3 (test code <0.01 See_Comment [Auto mated = 3098230513) message] The s [employer] which generated this result transmitted reference range : 10*3/?L. The reference range was not used to interpret this result as normal/abnormal . GRAN MAT (NEUT) % 65.7 % (test code = 770-8) IMM GRAN % (test code 0.30 % = 3456012416) LYMPH % (test code = 21.2 % 736-9) MONO % (test code = 10.0 % 5905-5) EOS % (test code = 2.3 % 713-8) BASO % (test code = 0.5 % 706-2) GRAN MAT x10^3(ANC) 3.99 10*3/uL 1.99-6.95 (test code = 4599097352) IMM GRAN x10^3 (test <0.03 0-0.06 code = 9721921347) LYMPH x10^3 (test code 1.29 10*3/uL 1.09-3.23 = 731-0) MONO x10^3 (test code 0.61 10*3/uL 0.36-1.02 = 742-7) EOS x10^3 (test code = 0.14 10*3/uL 0.06-0.53 711-2) BASO x10^3 (test code 0.03 10*3/uL 0.01-0.09 = 704-7) Lab Interpretation Abnormal (test code = 11086-1) [facility] DistrictL[facility] Acid Whole [id number] 12:04:00 Test Item Value Reference Range Interpretation Comments LACTIC ACID (test code = 1.23 mmol/L 9284345984) [facility] DistrictIR ABSCESS DRAIN [id number] 14:57:23 Successful abscessogram demonstrated unchanged position of [...] consentwas obtained. Prior to beginning the procedure, [place] Protocol was usedtoconfirm the patient's identity and planned procedure. Maximum sterilebarriers including cap, mask, momin nd hygiene, sterile gloves, sterile gown,large sterile drape and cutaneous antisepsis were used. Theskin overlying the existing drainage catheter in the right upperquadrant of the abdomen was sterilely prepped, draped and infiltrated with1 percent lidocaine. A rectangular tank cooper image was documented prior to the injection [...] catheter and with questionablefistulization to bowel. [facility], Radiant Results Inft User - 05/31/2020 9:58 AM CDTEXAMINATION: PERCUTANEOUS PERIHEPATIC ABSCESS DRAINAGE CATHETEREVALUATION/EXCHANGE.HISTORY: 50 years-old; Male; s/p Drain placement in right abdomen fluidcollection. No output for 3 consecutive days. Please eval for possibleremoval.ATTENDEES: Attending radiologist: Dr. Sadiq Gordon; Resident: Dr. Johnny Tilley;[facility] resident: Dr. Leeanna Valenzuela.SEDATION: No moderate sedation was administered for this procedure.RADIATION DOSE: 7.7 mGy.TECHNIQUE: The risks, benefits and alternatives were discussed and informed consentwas obtained. Prior to beginning the procedure, [place] Protocol was usedto confirm the patient's identity and planned procedure. Maximum sterilebarriers including cap, mask, hand hygiene, sterile gloves, sterile gown,large sterile drape and cutaneous antisepsis were used. The skin overlying the existing drainage catheter in the right upperquadrant of the abdomen was sterilely prepped, draped and infiltrated with1 percent lidocaine. A rectangular tank cooper image was documented prior to the injection [...] this study and agree with theabove report. [facility] METABOLIC PANEL (NA, K, CL, CO2, GLUCOSE, BUN, CREATININE, CA)2020-05-31 08:13:00 Test Item Value Reference Range Interpretation Comments NA (test code = 135 mmol/L 135-145 1491965640) K (test code = 4.1 mmol/L 3.5-5 7328705638) CL (test code = 99 mmol/L 98-108 5756679311) CO2 TOTAL (test code = 32 mmol/L 23-31 H 7165271205) AGAP (test code = 2-16 2759402581) BUN (test code = 14 mg/dL 7-23 5822831078) GLUCOSE (test code = 89 mg/dL 70-110 9979663396) CREATININE (test code = 0.67 mg/dL 0.6-1.25 7018804995) CALCIUM (test code = 8.2 mg/dL 8.6-10.6 L 8573284520) eGFR Calculation mL/min/1.73m2 (Non-) (test code = 8988490297) eGFR Calculation mL/min/1.73m2 () (test code = 6228144178) GILBERTO (test code = GILBERTO) Association of [...] tests). Lab Interpretation Abnormal (test code = 47671-5) [facility]MAG[facility]IUM2020-10-08 08:13:00 Test Item Value Reference Range Interpretation Comments MAGNESIUM (test code = 8464717184) 1.8 mg/dL 1.7-2.4 Lab Interpretation (test code = Normal 27362-7) [facility] DistrictPHOSPHORUS2020-10-08 08:13:00 Test Item Value Reference Range Interpretation Comments PHOSPHORUS (test code = 2823685502) 5.2 mg/dL 2.5-5 H Lab Interpretation (test code = Abnormal 18882-1) [facility] DistrictCB WITH [id number] 08:05:00 Test Item Value Reference Range Interpretation [...] (test code = 57.9 fL 38.5-51.6 H 59598-3) RDW-CV (test code = 18.7 % 12.1-15.4 H 788-0) PLT (test code = See_Comment [Automated 777-3) message] The sy stem which generated this result transmitted reference range : 150 - 328 10*3/ ?L. The reference r meredith was not used to interpret this result as normal/abnormal . MPV (test code = 10.3 fL 9.8-13 72840-2) NRBC/100 WBC (test See_Comment [Automat ed code = 1312975866) message] The system which generated this result transmitted reference range : 0.0 - 10.0 /100 WBCs. The refer ence range was not u sed to interpret th is result as normal/abnormal . NRBC x10^3 (test code <0.01 See_Comment [Auto mated = 3800292994) message] The s ystem which generated this result transmitted reference range : 10*3/?L. The reference range was not used to interpret this result as normal/abnormal . GRAN MAT (NEUT) % 56.4 % (test code = 770-8) IMM GRAN % (test code 0.50 % = 4412279396) LYMPH % (test code = 26.2 % 736-9) MONO % (test code = 12.2 % 5905-5) EOS % (test code = 4.2 % 713-8) BASO % (test code = 0.5 % 706-2) GRAN MAT x10^3(ANC) 2.31 10*3/uL 1.99-6.95 (test code = 1346353027) IMM GRAN x10^3 (test <0.03 0-0.06 code = 8109894565) LYMPH x10^3 (test code 1.07 10*3/uL 1.09-3.23 L = 731-0) MONO x10^3 (test code 0.50 10*3/uL 0.36-1.02 = 742-7) EOS x10^3 (test code = 0.17 10*3/uL 0.06-0.53 711-2) BASO x10^3 (test code <0.03 0.01-0.09 = 704-7) Lab Interpretation Abnormal (test code = 89155-1) [facility] METABOLIC PANEL (NA, K, CL, CO2, GLUCOSE, BUN, CREATININE, CA)2020-05-30 09:04:00 Test Item Value Reference Range Interpretation Comments NA (test code = 138 mmol/L 135-145 5179353172) K (test code = 4.4 mmol/L 3.5-5 9264166921) CL (test code = 99 mmol/L 98-108 9949957497) CO2 TOTAL (test code = 33 mmol/L 23-31 H 5890111206) AGAP (test code = 2-16 0955655203) BUN (test code = 18 mg/dL 7-23 1824498400) GLUCOSE (test code = 86 mg/dL 70-110 8407011147) CREATININE (test code = 0.61 mg/dL 0.6-1.25 2492615125) CALCIUM (test code = 8.1 mg/dL 8.6-10.6 L 6346638400) eGFR Calculation mL/min/1.73m2 (Non-) (test code = 0238546768) eGFR Calculation mL/min/1.73m2 () (test code = 5683190283) GILBERTO (test code = GILBERTO) Association of [...] tests). Lab Interpretation Abnormal (test code = 01830-2) [facility]2020-10-07 09:04:00 Test Item Value Reference Range Interpretation Comments MAGNESIUM (test code = 8230849906) 2.0 mg/dL 1.7-2.4 Lab Interpretation (test code = Normal 66901-2) [facility]PH[facility]2020-10-07 09:04:00 Test Item Value Reference Range Interpretation Comments PHOSPHORUS (test code = 2172611421) 4.6 mg/dL 2.5-5 Lab Interpretation (test code = Normal 52505-7) [facility]BAS[facility] METABOLIC PANEL (NA, K, CL, CO2, GLUCOSE, BUN, CREATININE, CA)2020-05-29 07:31:00 Test Item Value Reference Range Interpretation Comments NA (test code = 135 mmol/L 135-145 8405847203) K (test code = 4.0 mmol/L 3.5-5 3718089022) CL (test code = 100 mmol/L 98-108 1132121395) CO2 TOTAL (test code = 32 mmol/L 23-31 H 7805082004) AGAP (test code = 2-16 1626391319) BUN (test code = 19 mg/dL 7-23 0515240448) GLUCOSE (test code = 86 mg/dL 70-110 4694479087) CREATININE (test code = 0.68 mg/dL 0.6-1.25 3504871466) CALCIUM (test code = 8.0 mg/dL 8.6-10.6 L 4109276817) eGFR Calculation mL/min/1.73m2 (Non-) (test code = 1441207597) eGFR Calculation mL/min/1.73m2 () (test code = 0000125103) GILBERTO (test code = GILBERTO) Association of [...] tests). Lab Interpretation Abnormal (test code = 36637-4) [facility]2020-10-06 07:31:00 Test Item Value Reference Range Interpretation Comments MAGNESIUM (test code = 7439271775) 1.6 mg/dL 1.7-2.4 L Lab Interpretation (test code = Abnormal 11016-6) [facility]PH[facility]2020-10-06 07:31:00 Test Item Value Reference Range Interpretation Comments PHOSPHORUS (test code = 5567414911) 3.5 mg/dL 2.5-5 Lab Interpretation (test code = Normal 54741-0) [facility] DistrictASPIRATE OR ABSCESS CULTURE(AEROBIC/ANAEROBIC) 2020-05-28 12:35:00 Test Item Value Reference Range Interpretation Comments Aspirate or Abscess No aerobic/anaerobic Culture (test code = organisms isolated 67204-2) Gram stain (test code Occasional (Rare) = 664-3) Mononuclear cells [facility]BASI METABOLIC PANEL (NA, K, CL, CO2, GLUCOSE, BUN, CREATININE, CA)2020-05-28 09:36:00 Test Item Value Reference Range Interpretation Comments NA (test code = 136 mmol/L 135-145 0071154025) K (test code = 4.3 mmol/L 3.5-5 0967866073) CL (test code = 102 mmol/L 98-108 3510690692) CO2 TOTAL (test code = 31 mmol/L 23-31 7469103322) AGAP (test code = 2-16 4015264104) BUN (test code = 25 mg/dL 7-23 H 9748914037) GLUCOSE (test code = 87 mg/dL 70-110 0513786509) CREATININE (test code = 0.65 mg/dL 0.6-1.25 6434073879) CALCIUM (test code = 8.2 mg/dL 8.6-10.6 L 1060320623) eGFR Calculation mL/min/1.73m2 (Non-) (test code = 8873865221) eGFR Calculation mL/min/1.73m2 () (test code = 0070921368) GILBERTO (test code = GILBERTO) Association of [...] tests). Lab Interpretation Abnormal (test code = 72342-4) [facility]2020-10-05 09:36:00 Test Item Value Reference Range Interpretation Comments MAGNESIUM (test code = 6944487959) 1.6 mg/dL 1.7-2.4 L Lab Interpretation (test code = Abnormal 31963-2) [facility]2020-10-05 09:36:00 Test Item Value Reference Range Interpretation Comments PHOSPHORUS (test code = 3633081711) 2.6 mg/dL 2.5-5 Lab Interpretation (test code = Normal 82993-1) [facility]OLIC PANEL (NA, K, CL, CO2, GLUCOSE, BUN, CREATININE, CA)2020-05-27 10:13:00 Test Item Value Reference Range Interpretation Comments NA (test code = 135 mmol/L 135-145 2387640353) K (test code = 3.9 mmol/L 3.5-5 3740711307) CL (test code = 103 mmol/L 98-108 9208391630) CO2 TOTAL (test code = 28 mmol/L 23-31 0048044729) AGAP (test code = 2-16 0291959807) BUN (test code = 20 mg/dL 7-23 3922724453) GLUCOSE (test code = 95 mg/dL 70-110 2854109603) CREATININE (test code = 0.67 mg/dL 0.6-1.25 3958110799) CALCIUM (test code = 8.2 mg/dL 8.6-10.6 L 7451895622) eGFR Calculation mL/min/1.73m2 (Non-) (test code = 2696129086) eGFR Calculation mL/min/1.73m2 () (test code = 1598424346) GILBERTO (test code = GILBERTO) Association of [...] tests). Lab Interpretation Abnormal (test code = 49486-6) [facility]2020-10-04 10:13:00 Test Item Value Reference Range Interpretation Comments MAGNESIUM (test code = 9646396865) 1.5 mg/dL 1.7-2.4 L Lab Interpretation (test code = Abnormal 29775-2) [facility]2020-10-04 10:13:00 Test Item Value Reference Range Interpretation Comments PHOSPHORUS (test code = 5914617531) 3.4 mg/dL 2.5-5 Lab Interpretation (test code = Normal 05539-7) [facility] DistrictIR CHANGE OF ABSCESS [id number] 17:06:27 Successful removal of the left upper quadrant drainage catheter. Replacement of the right upper quadrant catheter into the most superiorsegment of the collection with a new 10 [place] pigtail catheter.PLAN: This tube should be flushed with 10 of saline twice a day. ?We willcontinue to monitor the output of the catheter while the patient isin-house. If the patient is discharged prior to catheter removal, follow-upwith VIR is recommended in 7-10 ?days. This can be arranged by -[id number]. Preliminary Report Dictated by Resident: Johnny Tilley [...] from those actually performing theprocedure. Please see [facility] for sedation time. RADIATION DOSE: 33.0 mGy. TECHNIQUE: The risks, benefits and alternativeswere discussed and informed consentwas obtained. Prior to beginning the procedure, [place] Protocol was usedto confirm the patient's identity [...] the pigtailcatheters within the respective collections. [facility], Radiant Results Inft User - [...] from those actually performing theprocedure. Please see [facility] for sedation time.RADIATION DOSE: 33.0 mGy.TECHNIQUE: The risks, benefits andalternatives were discussed and informed consentwas obtained. Prior to beginning the procedure, [place] Protocol was usedto confirm the patient's identity [...] of the collection with a new 10 [place] pigtail catheter.PLAN: This tube should be flushed with 10 of saline twice a day. We willcontinue to monitor the output of the catheter while the patient isin-house. If the patient is discharged prior to catheter removal, follow-upwith VIR is recommended in 7-10 days. This can be arranged by -[phone].Preliminary Report Dictated by Resident: Johnny Benitez, as teaching physician, was present during the entire procedure and/orduring the botello components.Nixon Damon MD., have reviewed this study and agree with theabove report.[facility]IR ASPIRATION ABSCESS BULLA OR CYST BY [id number] 17:06:16 Successful ultrasound-guided aspiration of intrahepatic small [...] consentwas obtained. Prior to beginning the procedure, [place] Protocol was usedto confirm the patient's identity and planned procedure. Maximum sterilebarriers including cap, mask, hand hygiene, sterile gloves, sterile gown,large sterile drape and cutaneous antisepsis were used. The skin overlying the right mid abdomen was sterilely prepped, draped andinfiltrated with 1percent lidocaine. The targeted infrahepatic small collection was then accessed with [id number] micropuncture needle using imaging guidance which includedultrasound. [...] consentwas obtained. Prior to beginning the procedure, [place] Protocol was usedto confirm the patient's identity and planned procedure. Maximum sterilebarriers including cap, mask, hand hygiene, sterile gloves, sterile gown,large sterile drape and cutaneous antisepsis were used. The skin overlying the right mid abdomen was sterilely prepped, draped andinfiltrated with 1 percent lidocaine. The targeted infrahepatic small collection was then accessed with [id number] micropuncture needle using imaging guidance which includ [...] during the entire procedure and/orduring the botello components.INixon MD., have reviewed this study and agree with theabove report.[facility] (NA, K, CL, CO2, GLUCOSE, BUN, CREATININE, CA) 2020-05-26 10:13:00 Test Item Value Reference Range Interpretation Comments NA (test code = 135 mmol/L 135-145 7131600688) K (test code = 4.4 mmol/L 3.5-5 0777270493) CL (test code = 107 mmol/L 98-108 6193882559) CO2 TOTAL (test code = 23 mmol/L 23-31 9780023189) AGAP (test code = 2-16 4502830512) BUN (test code = 18 mg/dL 7-23 7917404956) GLUCOSE (test code = 101 mg/dL 70-110 5659728158) CREATININE (test code = 0.61 mg/dL 0.6-1.25 7732997525) CALCIUM (test code = 8.1 mg/dL 8.6-10.6 L 8910944713) eGFR Calculation mL/min/1.73m2 (Non-) (test code = 6013853667) eGFR Calculation mL/min/1.73m2 () (test code = 6491843977) GILBERTO (test code = GILBERTO) Association of [...] tests). Lab Interpretation Abnormal (test code = 60733-5) [facility]2020-10-03 10:13:00 Test Item Value Reference Range Interpretation Comments MAGNESIUM (test code = 7057917253) 1.7 mg/dL 1.7-2.4 Lab Interpretation (test code = Normal 96193-1) [facility]2020-10-03 10:13:00 Test Item Value Reference Range Interpretation Comments PHOSPHORUS (test code = 7956141976) 3.4 mg/dL 2.5-5 Lab Interpretation (test code = Normal 47333-9) [facility] DistrictXR [id number] 23:20:33 Positioning dictated draining the right upper [...] are identified. No acutebony abnormality is present. [facility], Radiant Results Inft User - 05/25/2020 6:21 [...] reviewed this study and agree with theabove report.[facility] (NA, K, CL, CO2, GLUCOSE, BUN, CREATININE, CA)2020-05-25 22:49:00 Test Item Value Reference Range Interpretation Comments NA (test code = 136 mmol/L 135-145 8125851976) K (test code = 4.5 mmol/L 3.5-5 0555353769) CL (test code = 105 mmol/L 98-108 5766795885) CO2 TOTAL (test code = 22 mmol/L 23-31 L 1439610652) AGAP (test code = 2-16 9446465107) BUN (test code = 24 mg/dL 7-23 H 9598648114) GLUCOSE (test code = 101 mg/dL 70-110 9938614946) CREATININE (test code = 0.74 mg/dL 0.6-1.25 6747590126) CALCIUM (test code = 8.6 mg/dL 8.6-10.6 1962229327) eGFR Calculation mL/min/1.73m2 (Non-) (test code = 0603391562) eGFR Calculation mL/min/1.73m2 () (test code = 3828155075) GILBERTO (test code = GILBERTO) Association of [...] tests). Lab Interpretation Abnormal (test code = 01493-4) [facility]2020-10-02 22:11:00 Test Item Value Reference Range Interpretation Comments MAGNESIUM (test code = 7126801412) 2.0 mg/dL 1.7-2.4 Lab Interpretation (test code = Normal 71975-6) [facility]2020-10-02 22:11:00 Test Item Value Reference Range Interpretation Comments PHOSPHORUS (test code = 5290656324) 3.1 mg/dL 2.5-5 Lab Interpretation (test code = Normal 40131-2) [facility] District[facility] WITH [id number] 21:51:00 Test Item Value Reference Range Interpretation [...] (test code = 53.1 fL 38.5-51.6 H 27444-8) RDW-CV (test code = 17.9 % 12.1-15.4 H 788-0) PLT (test code = See_Comment [Automated 777-3) message] The sy stem which generated this result transmitted reference range : 150 - 328 10*3/ ?L. The reference r meredith was not used to interpret this result as normal/abnormal . MPV (test code = 9.1 fL 9.8-13 L 69381-9) NRBC/100 WBC (test See_Comment [Automat ed code = 9700561393) message] The system which generated this result transmitted reference range : 0.0 - 10.0 /100 WBCs. The refer ence range was not u sed to interpret th is result as normal/abnormal . NRBC x10^3 (test code <0.01 See_Comment [Auto mated = 7818297244) message] The s ystem which generated this result transmitted reference range : 10*3/?L. The reference range was not used to interpret this result as normal/abnormal . GRAN MAT (NEUT) % 73.4 % (test code = 770-8) IMM GRAN % (test code 0.50 % = 3076801431) LYMPH % (test code = 17.9 % 736-9) MONO % (test code = 5.2 % 5905-5) EOS % (test code = 2.5 % 713-8) BASO % (test code = 0.5 % 706-2) GRAN MAT x10^3(ANC) 4.05 10*3/uL 1.99-6.95 (test code = 7115362625) IMM GRAN x10^3 (test 0.03 10*3/uL 0-0.06 code = 6173952996) LYMPH x10^3 (test code 0.99 10*3/uL 1.09-3.23 L = 731-0) MONO x10^3 (test code 0.29 10*3/uL 0.36-1.02 L = 742-7) EOS x10^3 (test code = 0.14 10*3/uL 0.06-0.53 711-2) BASO x10^3 (test code 0.03 10*3/uL 0.01-0.09 = 704-7) Lab Interpretation Abnormal (test code = 91957-9) [facility] METABOLIC PANEL (NA, K, CL, CO2, GLUCOSE, BUN, CREATININE, CA)2020-05-25 09:24:00 Test Item Value Reference Range Interpretation Comments NA (test code = 135 mmol/L 135-145 8076286407) K (test code = 5.3 mmol/L 3.5-5 H Slight 2243020505) hemolysis CL (test code = 104 mmol/L 98-108 9031575983) CO2 TOTAL (test code 24 mmol/L 23-31 = 3398649796) AGAP (test code = 2-16 5786186700) BUN (test code = 22 mg/dL 7-23 Slight 8111696167) hemolysis GLUCOSE (test code = 96 mg/dL 70-110 9604198846) CREATININE (test code 0.73 mg/dL 0.6-1.25 = 5061838147) CALCIUM (test code = 8.2 mg/dL 8.6-10.6 L 3710380591) eGFR Calculation mL/min/1.73m2 (Non-) (test code = 8986225119) eGFR Calculation mL/min/1.73m2 () (test code = 9451265257) GILBERTO (test code = GILBERTO) Association of [...] tests). Lab Interpretation Abnormal (test code = 84596-0) [facility]2020-10-02 09:24:00 Test Item Value Reference Range Interpretation Comments MAGNESIUM (test code = 3565278043) 2.3 mg/dL 1.7-2.4 Lab Interpretation (test code = Normal 69474-0) [facility]2020-10-02 09:24:00 Test Item Value Reference Range Interpretation Comments PHOSPHORUS (test code = 9009736274) 3.4 mg/dL 2.5-5 Lab Interpretation (test code = Normal 46271-8) [facility] (NA, K, CL, CO2, GLUCOSE, BUN, CREATININE, CA)2020-05-24 21:00:00 Test Item Value Reference Range Interpretation Comments NA (test code = 135 mmol/L 135-145 7703074777) K (test code = 4.3 mmol/L 3.5-5 0087634533) CL (test code = 102 mmol/L 98-108 3816842738) CO2 TOTAL (test code = 25 mmol/L 23-31 8981522730) AGAP (test code = 2-16 4124562497) BUN (test code = 20 mg/dL 7-23 9264259298) GLUCOSE (test code = 102 mg/dL 70-110 7839822107) CREATININE (test code 0.97 mg/dL 0.6-1.25 = 2501758490) CALCIUM (test code = 9.0 mg/dL 8.6-10.6 4133051624) eGFR Calculation mL/min/1.73m2 (Non-) (test code = 2898554314) eGFR Calculation mL/min/1.73m2 () (test code = 8884592988) GILBERTO (test code = GILBERTO) Association of [...] or urine or abnormalities in imaging tests). [facility]2020-10-01 21:00:00 Test Item Value Reference Range Interpretation Comments MAGNESIUM (test code = 8423386000) 1.5 mg/dL 1.7-2.4 L Lab Interpretation (test code = Abnormal 05228-4) [facility]2020-10-01 20:58:00 Test Item Value Reference Range Interpretation Comments PHOSPHORUS (test code = 5210816047) 3.3 mg/dL 2.5-5 Lab Interpretation (test code = Normal 22915-1) [facility] with [id number] 11:31:00 Test Item Value Reference Range Interpretation [...] (test code = 51.9 fL 38.5-51.6 H 69948-9) RDW-CV (test code = 17.6 % 12.1-15.4 H 788-0) PLT (test code = See_Comment H [Automated 777-3) message] The sy stem which generated this result transmitted reference range : 150 - 328 10*3/ ?L. The reference r meredith was not used to interpret this result as normal/abnormal . MPV (test code = 9.0 fL 9.8-13 L 66961-4) NRBC/100 WBC (test See_Comment [Automat ed code = 0619191163) message] The system which generated this result transmitted reference range : 0.0 - 10.0 /100 WBCs. The refer ence range was not u sed to interpret th is result as normal/abnormal . NRBC x10^3 (test code <0.01 See_Comment [Auto mated = 5816797144) message] The s ystem which generated this result transmitted reference range : 10*3/?L. The reference range was not used to interpret this result as normal/abnormal . GRAN MAT (NEUT) % 66.0 % (test code = 770-8) IMM GRAN % (test code 0.20 % = 7480136998) LYMPH % (test code = 20.3 % 736-9) MONO % (test code = 10.4 % 5905-5) EOS % (test code = 2.6 % 713-8) BASO % (test code = 0.5 % 706-2) GRAN MAT x10^3(ANC) 4.33 10*3/uL 1.99-6.95 (test code = 8349329975) IMM GRAN x10^3 (test <0.03 0-0.06 code = 7405375220) LYMPH x10^3 (test code 1.33 10*3/uL 1.09-3.23 = 731-0) MONO x10^3 (test code 0.68 10*3/uL 0.36-1.02 = 742-7) EOS x10^3 (test code = 0.17 10*3/uL 0.06-0.53 711-2) BASO x10^3 (test code 0.03 10*3/uL 0.01-0.09 = 704-7) Lab Interpretation Abnormal (test code = 61235-0) [facility] [id number] 17:39:05 Since 05/19/2020 slight increase in size of collection in the rightparacolic gutter, interval post removal of the right lower quadrant drain. The left diaphragmatic and right perihepatic are unchanged with drains insitu as above. CT ABDOMEN PELVIS W CONTRAST 05/23/2020 9:50 AM HISTORY: fluid collections , eval for IR drainage. 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 leadingto end [...] perihepatic are unchanged with drains insitu as above.[facility] (NA, K, CL, CO2, Glucose, BUN, Creatinine, CA)2020-05-23 10:25:00 Test Item Value Reference Range Interpretation Comments NA (test code = 135 mmol/L 135-145 0091452044) K (test code = 3.7 mmol/L 3.5-5 8729466495) CL (test code = 105 mmol/L 98-108 0010267485) CO2 TOTAL (test code = 24 mmol/L 23-31 9060817606) AGAP (test code = 2-16 2619284918) BUN (test code = 19 mg/dL 7-23 6667310723) GLUCOSE (test code = 117 mg/dL 70-110 H 5672808508) CREATININE (test code = 0.74 mg/dL 0.6-1.25 7977370868) CALCIUM (test code = 7.3 mg/dL 8.6-10.6 L 9728063556) eGFR Calculation mL/min/1.73m2 (Non-) (test code = 4013195616) eGFR Calculation mL/min/1.73m2 () (test code = 0475601506) GILBERTO (test code = GILBERTO) Association of [...] tests). Lab Interpretation Abnormal (test code = 46817-6) [facility] COVID-19 AVGKARL6936-10-17 07:40:00 Test Item Value Reference Range Interpretation Comments SARS-CoV-2 Rapid ID NOW Not Detected Not Detected (test code = 64016-8) GILBERTO (test code = GILBERTO) ID NOW COVID-19 Assay is an isothermal nucleic acid amplification test intended for the qualitative detection of nucleic acid from SARS-CoV-2 viral RNA in nasopharyngeal ([employer]) specimens. It is used under Emergency Use [...] indicated. Lab Interpretation Normal (test code = 70555-7) [facility] DistrictUrinalysis2020-09-29 22:41:00 Test Item Value Reference Range Interpretation Comments APPEARANCE (test code = Hazy Clear A 7088812357) COLOR (test code = Yellow Yellow 5020955079) PH (test code = 4.8-8.0 8700712513) SP GRAVITY (test code = 1.003-1.030 1193393345) GLU U QUAL (test code = Normal Normal 8510848093) BLOOD (test code = Negative Negative 6327047971) KETONES (test code = Negative Negative 9427746195) PROTEIN (test code = 30 mg/dL Negative A 2887-8) UROBILIN (test code = Normal Normal 7845150294) BILIRUBIN (test code = Negative Negative 6570432977) NITRITE (test code = Negative Negative 1402846523) LEUK ROGER (test code = Negative Negative 9169881387) RBC/HPF (test code = See_Comment H [Autom ated message] 5159394542) The system [employer] generated this result transmitted ref erence range: 0 - 3 HP F. The reference range was not used to int erpret this result as normal/abnormal . WBC/HPF (test code = See_Comment H [Autom ated message] 2349326077) The system [employer] generated this result transmitted ref erence range: 0 - 5 HP F. The reference range was not used to int erpret this result as normal/abnormal . BACTERIA (test code = Negative Negative 2474993949) MUCOUS (test code = Moderate Negative LPF A 8177458015) SQ EPITH (test code = See_Comment [Auto mated message] 7782047275) The system [employer] generated this result transmitted ref erence range: <=2 HPF. The reference range was not used to int erpret this result as normal/abnormal . CA OXALATE (test code = See_Comment H [Au tomated message] 0489455570) The system [employer] generated this result transmitted ref erence range: <=1 HPF. The reference range was not used to int erpret this result as normal/abnormal . HYAL CAST (test code = See_Comment H [Aut omated message] 1156963488) The system [employer] generated this result transmitted ref erence range: <=2 LPF. The reference range was not used to int erpret this result as normal/abnormal . Lab Interpretation (test Abnormal code = 31655-0) [facility] Metabolic Panel (NA, K, CL, CO2, GLUCOSE, BUN, CREATININE, CA)2020-05-22 21:46:00 Test Item Value Reference Range Interpretation Comments NA (test code = 134 mmol/L 135-145 L 2680837538) K (test code = 5.0 mmol/L 3.5-5 6091096289) CL (test code = 103 mmol/L 98-108 4189575867) CO2 TOTAL (test code = 25 mmol/L 23-31 1404808524) AGAP (test code = 2-16 5296818558) BUN (test code = 24 mg/dL 7-23 H 3397245829) GLUCOSE (test code = 102 mg/dL 70-110 9006267509) CREATININE (test code = 0.87 mg/dL 0.6-1.25 4760531739) CALCIUM (test code = 9.2 mg/dL 8.6-10.6 0275129660) eGFR Calculation mL/min/1.73m2 (Non-) (test code = 6670030911) eGFR Calculation mL/min/1.73m2 () (test code = 7239226028) GILBERTO (test code = GILBERTO) Association of [...] tests). Lab Interpretation Abnormal (test code = 70373-3) [facility] District[facility] Function [facility] (ALB, T.PRO, BILI T, BU/BC, ALT, AST, ALK PHOS)2020-05-22 21:46:00 Test Item Value Reference Range Interpretation Comments TOTAL BILI (test code = 5079590115) 0.4 mg/dL 0.1-1.1 BILI UNCON (test code = 2059184140) 0.2 mg/dL 0.1-1.1 BILI CONJ (test code = 8634808506) 0.0 mg/dL 0-0.3 T PROTEIN (test code = 1080669458) 6.5 g/dL 6.3-8.2 ALBUMIN (test code = 2883026307) 3.6 g/dL 3.5-5 ALK PHOS (test code = 6305211823) 96 U/L 34-122 ALTv (test code = 1742-6) 22 U/L 5-50 AST(SGOT) (test code = 6063727097) 28 U/L 13-40 Lab Interpretation (test code = Normal 14168-9) [facility] DistrictLipase Wmjes6967-04-94 21:46:00 Test Item Value Reference Range Interpretation Comments LIPASE (test code = 8219459368) 95 U/L 0-220 Lab Interpretation (test code = Normal 70831-6) [facility] DistrictaPTT2020-09-29 21:46:00 Test Item Value Reference Range Interpretation Comments APTT Patient (test code = See_Comment [ Automated message] 3173-2) The system whic h generated this result transmitted ref erence range: 26 - 36 Seconds. The re ference range was not u sed to interpret this result as normal/abnor mal. Lab Interpretation (test Normal code = 25557-4) [facility] DistrictProthrombin Time (PT) / [id number] 21:46:00 Test Item Value Reference Range Interpretation [...] tions. Lab Interpretation (test Abnormal code = 57866-9) [facility] DistrictCBC with Ggimzjrtskgs6312-14-87 21:41:00 Test Item Value Reference Range Interpretation [...] (test code = 53.0 fL 38.5-51.6 H 01534-2) RDW-CV (test code = 17.6 % 12.1-15.4 H 788-0) PLT (test code = See_Comment H [Automated 777-3) message] The sy stem which generated this result transmitted reference range : 150 - 328 10*3/ ?L. The reference r meredith was not used to interpret this result as normal/abnormal . MPV (test code = 9.1 fL 9.8-13 L 25442-9) NRBC/100 WBC (test See_Comment [Automat ed code = 4387355817) message] The system which generated this result transmitted reference range : 0.0 - 10.0 /100 WBCs. The refer ence range was not u sed to interpret th is result as normal/abnormal . NRBC x10^3 (test code <0.01 See_Comment [Auto mated = 0660069020) message] The s ystem which generated this result transmitted reference range : 10*3/?L. The reference range was not used to interpret this result as normal/abnormal . GRAN MAT (NEUT) % 77.4 % (test code = 770-8) IMM GRAN % (test code 0.50 % = 7842771424) LYMPH % (test code = 15.8 % 736-9) MONO % (test code = 4.9 % 5905-5) EOS % (test code = 0.8 % 713-8) BASO % (test code = 0.6 % 706-2) GRAN MAT x10^3(ANC) 5.04 10*3/uL 1.99-6.95 (test code = 5004855497) IMM GRAN x10^3 (test 0.03 10*3/uL 0-0.06 code = 9806896131) LYMPH x10^3 (test code 1.03 10*3/uL 1.09-3.23 L = 731-0) MONO x10^3 (test code 0.32 10*3/uL 0.36-1.02 L = 742-7) EOS x10^3 (test code = 0.05 10*3/uL 0.06-0.53 L 711-2) BASO x10^3 (test code 0.04 10*3/uL 0.01-0.09 = 704-7) Lab Interpretation Abnormal (test code = 93371-9) [facility] 1 Fdly4607-45-64 21:19:32CHEST ONE VIEW HISTORY: ?Weakness TECHNIQUE: ?AP [...] the left costophrenic angle suggests a leftpleural effusion.[facility] DistrictCOVID-[facility] (ID NOW RAPID TESTING) 2020-05-20 10:09:00 Test Item Value Reference Range Interpretation Comments SARS-CoV-2 Rapid ID NOW Not Detected Not Detected (test code = 53547-7) GILBERTO (test code = GILBERTO) ID NOW COVID-19 Assay is an isothermal nucleic acid amplification test intended for the qualitative detection of nucleic acid from SARS-CoV-2 viral RNA in nasopharyngeal ([employer]) specimens. It is used under Emergency Use [...] indicated. Lab Interpretation Normal (test code = 06227-7) [facility] DistrictURINALYSIS2020-09-27 10:07:00 Test Item Value Reference Range Interpretation Comments APPEARANCE (test code = Clear Clear 6339168861) COLOR (test code = Yellow Yellow 7009106519) PH (test code = 4.8-8.0 6890259003) SP GRAVITY (test code = 1.003-1.030 H 0585253205) GLU U QUAL (test code = Normal Normal 0902100007) BLOOD (test code = Negative Negative 3504595717) KETONES (test code = Negative Negative 1042606046) PROTEIN (test code = Negative Negative 2887-8) UROBILIN (test code = Normal Normal 8505530833) BILIRUBIN (test code = Negative Negative 1913797222) NITRITE (test code = Negative Negative 9364236875) LEUK ROGER (test code = Negative Negative 7820891715) RBC/HPF (test code = See_Comment [Autom ated message] 0146569852) The system [employer] generated this result transmitted ref erence range: 0 - 3 HP F. The reference range was not used to int erpret this result as normal/abnormal . WBC/HPF (test code = See_Comment [Autom ated message] 6794928890) The system [employer] generated this result transmitted ref erence range: 0 - 5 HP F. The reference range was not used to int erpret this result as normal/abnormal . BACTERIA (test code = Negative Negative 9398806309) MUCOUS (test code = Slight Negative LPF A 6142699717) SQ EPITH (test code = See_Comment [Auto mated message] 3368951693) The system [employer] generated this result transmitted ref erence range: <=2 HPF. The reference range was not used to int erpret this result as normal/abnormal . HYAL CAST (test code = See_Comment H [Aut omated message] 6337584482) The system [employer] generated this result transmitted ref erence range: <=2 LPF. The reference range was not used to int erpret this result as normal/abnormal . Lab Interpretation (test Abnormal code = 65978-2) [facility] DistrictCT ABDOMEN PELVIS W [id number] 04:28:40Impression: 1. Multiple rim-enhancing fluid and gas [...] effusions, possiblyloculated on the left. RL: 2824AFC: 11441 End of Report Exam: CT Abdomen and [...] pleural effusions, possiblyloculated on the left.RL: 2824AFC: 21461Cig of Report [facility] [id number] 03:44:00 Test Item Value Reference Range Interpretation Comments TROPONIN I (test 0.001 ng/mL See_Comment [Automated code = 6597289621) message] The system which generated this result [...] ? Lab Interpretation Normal (test code = 87528-3) [facility]. METABOLIC PANEL (53829)2020-05-20 03:33:00 Test Item Value Reference Range Interpretation Comments NA (test code = 138 mmol/L 135-145 7149299672) K (test code = 5.3 mmol/L 3.5-5 H 5729537555) CL (test code = 100 mmol/L 98-108 9659693564) CO2 TOTAL (test code = 28 mmol/L 23-31 8938735177) AGAP (test code = 2-16 6327803761) BUN (test code = 27 mg/dL 7-23 H 0906141367) GLUCOSE (test code = 90 mg/dL 70-110 0226423299) CREATININE (test code = 1.25 mg/dL 0.6-1.25 1747872624) TOTAL BILI (test code = 0.2 mg/dL 0.1-1.9 5019801623) CALCIUM (test code = 9.9 mg/dL 8.6-10.6 7571569931) T PROTEIN (test code = 6.8 g/dL 6.3-8.2 2426469971) ALBUMIN (test code = 3.7 g/dL 3.5-5 8767727556) ALK PHOS (test code = 122 U/L 34-122 8060703588) ALTv (test code = 26 U/L 5-50 1742-6) AST(SGOT) (test code = 24 U/L 13-40 8191158230) eGFR Calculation mL/min/1.73m2 (Non-) (test code = 8730465513) eGFR Calculation mL/min/1.73m2 () (test code = 4897841878) GILBERTO (test code = GILBERTO) Association of [...] tests). Lab Interpretation Abnormal (test code = 29836-2) [facility] DistrictL[facility]ASE2020-09-27 03:33:00 Test Item Value Reference Range Interpretation Comments LIPASE (test code = 2509847002) 223 U/L 0-220 H Lab Interpretation (test code = Abnormal 86809-1) [facility] DistrictMAGNESIUM2020-09-27 03:33:00 Test Item Value Reference Range Interpretation Comments MAGNESIUM (test code = 4603979316) 1.7 mg/dL 1.7-2.4 Lab Interpretation (test code = Normal 04088-0) [facility] DistrictCB WITH [id number] 03:17:00 Test Item Value Reference Range Interpretation [...] RDW-SD (test code = 49.9 fL 38.5-51.6 89827-2) RDW-CV (test code = 17.2 % 12.1-15.4 H 788-0) PLT (test code = See_Comment H [Automated 777-3) message] The sy stem which generated this result transmitted reference range : 150 - 328 10*3/ ?L. The reference r meredith was not used to interpret this result as normal/abnormal . MPV (test code = 9.3 fL 9.8-13 L 72216-5) NRBC/100 WBC (test See_Comment [Automat ed code = 0746963331) message] The system which generated this result transmitted reference range : 0.0 - 10.0 /100 WBCs. The refer ence range was not u sed to interpret th is result as normal/abnormal . NRBC x10^3 (test code <0.01 See_Comment [Auto mated = 4121632905) message] The s ystem which generated this result transmitted reference range : 10*3/?L. The reference range was not used to interpret this result as normal/abnormal . GRAN MAT (NEUT) % 78.5 % (test code = 770-8) IMM GRAN % (test code 0.50 % = 4326324325) LYMPH % (test code = 11.6 % 736-9) MONO % (test code = 8.4 % 5905-5) EOS % (test code = 0.6 % 713-8) BASO % (test code = 0.4 % 706-2) GRAN MAT x10^3(ANC) 6.16 10*3/uL 1.99-6.95 (test code = 7912712646) IMM GRAN x10^3 (test 0.04 10*3/uL 0-0.06 code = 1352497668) LYMPH x10^3 (test code 0.91 10*3/uL 1.09-3.23 L = 731-0) MONO x10^3 (test code 0.66 10*3/uL 0.36-1.02 = 742-7) EOS x10^3 (test code = 0.05 10*3/uL 0.06-0.53 L 711-2) BASO x10^3 (test code 0.03 10*3/uL 0.01-0.09 = 704-7) Lab Interpretation Abnormal (test code = 50101-2) [facility] DistrictB[facility] FLUID CULTURE(AEROBIC/ANAEROBIC) 2020-05-10 15:19:00 Test Item Value Reference Range Interpretation Comments BODY FLUID CULT 2+ Clostridioides (test code = (Clostridium) difficile 611-4) Gram stain (test Few PMNs or Mononuclear code = 664-3) cells observed [facility] DistrictBasi Metabolic Panel (NA, K, CL, CO2, GLUCOSE, BUN, CREATININE, CA)2020-05-10 10:27:00 Test Item Value Reference Range Interpretation Comments NA (test code = 132 mmol/L 135-145 L 2720497469) K (test code = 4.0 mmol/L 3.5-5 0308880907) CL (test code = 97 mmol/L 98-108 L 0464672964) CO2 TOTAL (test code = 28 mmol/L 23-31 9850970171) AGAP (test code = 2-16 2316799506) BUN (test code = 12 mg/dL 7-23 0096619934) GLUCOSE (test code = 128 mg/dL 70-110 H 7763310497) CREATININE (test code = 0.63 mg/dL 0.6-1.25 8848437647) CALCIUM (test code = 8.7 mg/dL 8.6-10.6 4973463012) eGFR Calculation mL/min/1.73m2 (Non-) (test code = 0755774058) eGFR Calculation mL/min/1.73m2 () (test code = 0721805032) GILBERTO (test code = GILBERTO) Association of [...] tests). Lab Interpretation Abnormal (test code = 74664-8) [facility] DistrictMagnesium Qkfus0390-73-38 10:27:00 Test Item Value Reference Range Interpretation Comments MAGNESIUM (test code = 5808187730) 1.7 mg/dL 1.7-2.4 Lab Interpretation (test code = Normal 70203-9) [facility] DistrictPhosphorus Bycee2245-58-94 10:27:00 Test Item Value Reference Range Interpretation Comments PHOSPHORUS (test code = 7167798014) 3.4 mg/dL 2.5-5 Lab Interpretation (test code = Normal 20963-7) [facility] with Pydzhuzaomzc2603-84-66 10:03:00 Test Item Value Reference Range Interpretation [...] RDW-SD (test code = 47.3 fL 38.5-51.6 49721-7) RDW-CV (test code = 15.7 % 12.1-15.4 H 788-0) PLT (test code = See_Comment H [Automated 777-3) message] The sy stem which generated this result transmitted reference range : 150 - 328 10*3/ ?L. The reference r meredith was not used to interpret this result as normal/abnormal . MPV (test code = 8.9 fL 9.8-13 L 40843-4) NRBC/100 WBC (test See_Comment [Automat ed code = 7946708224) message] The system which generated this result transmitted reference range : 0.0 - 10.0 /100 WBCs. The refer ence range was not u sed to interpret th is result as normal/abnormal . NRBC x10^3 (test code <0.01 See_Comment [Auto mated = 1557391963) message] The s ystem which generated this result transmitted reference range : 10*3/?L. The reference range was not used to interpret this result as normal/abnormal . GRAN MAT (NEUT) % 80.0 % (test code = 770-8) IMM GRAN % (test code 0.50 % = 1161671438) LYMPH % (test code = 11.8 % 736-9) MONO % (test code = 6.6 % 5905-5) EOS % (test code = 0.8 % 713-8) BASO % (test code = 0.3 % 706-2) GRAN MAT x10^3(ANC) 6.98 10*3/uL 1.99-6.95 H (test code = 7448399104) IMM GRAN x10^3 (test 0.04 10*3/uL 0-0.06 code = 4836596624) LYMPH x10^3 (test code 1.03 10*3/uL 1.09-3.23 L = 731-0) MONO x10^3 (test code 0.58 10*3/uL 0.36-1.02 = 742-7) EOS x10^3 (test code = 0.07 10*3/uL 0.06-0.53 711-2) BASO x10^3 (test code 0.03 10*3/uL 0.01-0.09 = 704-7) Lab Interpretation Abnormal (test code = 61509-3) [facility] Metabolic Panel (NA, K, CL, CO2, GLUCOSE, BUN, CREATININE, CA)2020-05-09 11:07:00 Test Item Value Reference Range Interpretation Comments NA (test code = 133 mmol/L 135-145 L 8738509845) K (test code = 4.4 mmol/L 3.5-5 9559861614) CL (test code = 100 mmol/L 98-108 8902685659) CO2 TOTAL (test code = 25 mmol/L 23-31 9245093377) AGAP (test code = 2-16 6486505635) BUN (test code = 14 mg/dL 7-23 3675956964) GLUCOSE (test code = 93 mg/dL 70-110 1353355870) CREATININE (test code = 0.66 mg/dL 0.6-1.25 5212943457) CALCIUM (test code = 8.3 mg/dL 8.6-10.6 L 1316412606) eGFR Calculation mL/min/1.73m2 (Non-) (test code = 5510239792) eGFR Calculation mL/min/1.73m2 () (test code = 6875706949) GILBERTO (test code = GILBERTO) Association of [...] tests). Lab Interpretation Abnormal (test code = 16847-7) [facility] DistrictMagnesium Yksej9643-34-34 11:07:00 Test Item Value Reference Range Interpretation Comments MAGNESIUM (test code = 8894277188) 1.8 mg/dL 1.7-2.4 Lab Interpretation (test code = Normal 67365-8) [facility] DistrictPhosphorus Cvcti2419-32-88 11:07:00 Test Item Value Reference Range Interpretation Comments PHOSPHORUS (test code = 9612392477) 3.2 mg/dL 2.5-5 Lab Interpretation (test code = Normal 16579-0) [facility] with Awtptbdrnsfj4846-80-32 10:42:00 Test Item Value Reference Range Interpretation [...] RDW-SD (test code = 45.9 fL 38.5-51.6 61455-1) RDW-CV (test code = 15.4 % 12.1-15.4 788-0) PLT (test code = See_Comment H [Automated 777-3) message] The sy stem which generated this result transmitted reference range : 150 - 328 10*3/ ?L. The reference r meredith was not used to interpret this result as normal/abnormal . MPV (test code = 8.9 fL 9.8-13 L 34802-6) NRBC/100 WBC (test See_Comment [Automat ed code = 0152940249) message] The system which generated this result transmitted reference range : 0.0 - 10.0 /100 WBCs. The refer ence range was not u sed to interpret th is result as normal/abnormal . NRBC x10^3 (test code <0.01 See_Comment [Auto mated = 9774305702) message] The s ystem which generated this result transmitted reference range : 10*3/?L. The reference range was not used to interpret this result as normal/abnormal . GRAN MAT (NEUT) % 77.7 % (test code = 770-8) IMM GRAN % (test code 0.50 % = 8825935168) LYMPH % (test code = 11.8 % 736-9) MONO % (test code = 8.4 % 5905-5) EOS % (test code = 1.4 % 713-8) BASO % (test code = 0.2 % 706-2) GRAN MAT x10^3(ANC) 6.48 10*3/uL 1.99-6.95 (test code = 4971529198) IMM GRAN x10^3 (test 0.04 10*3/uL 0-0.06 code = 7368819171) LYMPH x10^3 (test code 0.98 10*3/uL 1.09-3.23 L = 731-0) MONO x10^3 (test code 0.70 10*3/uL 0.36-1.02 = 742-7) EOS x10^3 (test code = 0.12 10*3/uL 0.06-0.53 711-2) BASO x10^3 (test code <0.03 0.01-0.09 = 704-7) Lab Interpretation Abnormal (test code = 45659-4) [facility] Metabolic Panel (NA, K, CL, CO2, GLUCOSE, BUN, CREATININE, CA)2020-05-08 12:18:00 Test Item Value Reference Range Interpretation Comments NA (test code = 136 mmol/L 135-145 1043487377) K (test code = 4.1 mmol/L 3.5-5 6558349761) CL (test code = 102 mmol/L 98-108 4073467471) CO2 TOTAL (test code = 26 mmol/L 23-31 4470243384) AGAP (test code = 2-16 9345959923) BUN (test code = 18 mg/dL 7-23 4389098415) GLUCOSE (test code = 99 mg/dL 70-110 9840136677) CREATININE (test code = 0.63 mg/dL 0.6-1.25 6387303300) CALCIUM (test code = 8.4 mg/dL 8.6-10.6 L 6457905074) eGFR Calculation mL/min/1.73m2 (Non-) (test code = 5979249828) eGFR Calculation mL/min/1.73m2 () (test code = 0243133699) GILBERTO (test code = GILBERTO) Association of [...] tests). Lab Interpretation Abnormal (test code = 62561-6) [facility] DistrictMagn[facility] Rckfy9266-62-25 12:18:00 Test Item Value Reference Range Interpretation Comments MAGNESIUM (test code = 6069810300) 1.8 mg/dL 1.7-2.4 Lab Interpretation (test code = Normal 01659-6) [facility] DistrictPhosphorus Atyrv7080-19-01 12:18:00 Test Item Value Reference Range Interpretation Comments PHOSPHORUS (test code = 0239517633) 3.2 mg/dL 2.5-5 Lab Interpretation (test code = Normal 17229-7) [facility] with Jtmpbzkazjzq3561-88-28 11:50:00 Test Item Value Reference Range Interpretation [...] RDW-SD (test code = 46.9 fL 38.5-51.6 05672-1) RDW-CV (test code = 15.2 % 12.1-15.4 788-0) PLT (test code = See_Comment H [Automated 777-3) message] The sy stem which generated this result transmitted reference range : 150 - 328 10*3/ ?L. The reference r meredith was not used to interpret this result as normal/abnormal . MPV (test code = 9.0 fL 9.8-13 L 20890-5) NRBC/100 WBC (test See_Comment [Automat ed code = 3098503387) message] The system which generated this result transmitted reference range : 0.0 - 10.0 /100 WBCs. The refer ence range was not u sed to interpret th is result as normal/abnormal . NRBC x10^3 (test code <0.01 See_Comment [Auto mated = 8596870922) message] The s ystem which generated this result transmitted reference range : 10*3/?L. The reference range was not used to interpret this result as normal/abnormal . GRAN MAT (NEUT) % 76.3 % (test code = 770-8) IMM GRAN % (test code 0.70 % = [id number]) LYMPH % (test code = 13.3 % 736-9) MONO % (test code = 8.4 % 5905-5) EOS % (test code = 1.1 % 713-8) BASO % (test code = 0.2 % 706-2) GRAN MAT x10^3(ANC) 6.93 10*3/uL 1.99-6.95 (test code = [id number]) IMM GRAN x10^3 (test 0.06 10*3/uL 0-0.06 code = [id number]) LYMPH x10^3 (test code 1.21 10*3/uL 1.09-3.23 = 731-0) MONO x10^3 (test code 0.76 10*3/uL 0.36-1.02 = 742-7) EOS x10^3 (test code = 0.10 10*3/uL 0.06-0.53 711-2) BASO x10^3 (test code <0.03 0.01-0.09 = 704-7) Lab Interpretation Abnormal (test code = 03695-9) [facility]HETER PERITONEAL OR [id number] 13:09:04 Technically successful drainage catheter placement in [...] of the tract was performed. A 14 [place] locking pigtail michael inagecatheter was placed in the collection and samples were sent for laboratoryanalysis. The left upper quadrant collection was identified under ultrasound and CTguidance. A 17-gauge coaxial needle wasadvanced into the collection. AnAmplatz wire was advanced into the collection over the needle and serialdilatation of the tract was performed. A 12 [place] Island[place] locking pigtail drainagecatheter was placed within the collection and samples were sent forlaboratory analysis. The right lower quadrant collectionwas identified under ultrasound and CTguidance. A 17-gauge coaxial needle was advanced into the colle ction.Serial dilatation was performed over the Amplatz wire. A 14 [place] Island[place] lockingpigtail drainage catheter was placed within the collection. Proper positioning was confirmed with postprocedural CT imaging of theabdomen and pelvis. The catheters were sutured to the skin. ESTIMATED BLOOD LOSS: <3cc. CONDITION: Stable. FINDINGS: Initial CT images demonstrate multiple abscesses in the left upper, rightupper, and right lower quadrants. Wymb, Radiant Results Inft User - 05/07/2020 8:10 [...] from those actually performing theprocedure. Please see [facility] for total sedation time. TECHNIQUE: The risks, benefits and alternatives were discussed and informedconsent was obtained. Prior to beginning the procedure, [place] Protocolwas performed to confirm the patient's identity [...] of the tract was performed. A 14 [place] Island[place] lockingpigtail drainagecatheter was placed in the collection and samples were sent for laboratoryanalysis.The left upper quadrant collection was identified under ultrasound and CTguidance. A 17-gauge coaxial needle was advanced into the collection. AnAmplatz wire was advanced into the collection over the needle and serialdilatation of the tract was performed. A 12 [place] Island[place] locking pigtail drainagecatheter wasplaced within the collection and samples were sent forlaboratory analysis.The right lower quadrant collection was identified under ultrasound and CTguidance. A 17-gauge coaxial needle was advanced intothe collection.Serial dilatation was performed over the Amplatz wire. A 14 [place] Island[place] lockingpigtail drainage catheter was placed within [...] during the entire procedure and/orduring the botello components.[facility] (NA, K, CL, CO2, GLUCOSE, BUN, CREATININE, CA) 2020-05-07 11:49:00 Test Item Value Reference Range Interpretation Comments NA (test code = 132 mmol/L 135-145 L 7451015191) K (test code = 4.0 mmol/L 3.5-5 8654991247) CL (test code = 101 mmol/L 98-108 6031348605) CO2 TOTAL (test code = 23 mmol/L 23-31 4350103649) AGAP (test code = 2-16 9581704496) BUN (test code = 21 mg/dL 7-23 8394412636) GLUCOSE (test code = 98 mg/dL 70-110 1201241939) CREATININE (test code = 0.65 mg/dL 0.6-1.25 3533005265) CALCIUM (test code = 8.4 mg/dL 8.6-10.6 L 1210132392) eGFR Calculation mL/min/1.73m2 (Non-) (test code = 4782232114) eGFR Calculation mL/min/1.73m2 () (test code = 1608604353) GILBERTO (test code = GILBERTO) Association of [...] tests). Lab Interpretation Abnormal (test code = 56273-2) [facility] DistrictMagn[facility] Ctssa9074-88-10 11:49:00 Test Item Value Reference Range Interpretation Comments MAGNESIUM (test code = 6927919987) 1.5 mg/dL 1.7-2.4 L Lab Interpretation (test code = Abnormal 04140-5) [facility] DistrictPhosphorus Nmtes9179-59-15 11:49:00 Test Item Value Reference Range Interpretation Comments PHOSPHORUS (test code = 5686378240) 2.7 mg/dL 2.5-5 Lab Interpretation (test code = Normal 05403-7) [facility]CBC with Xyfepykixczh3093-22-61 11:31:00 Test Item Value Reference Range Interpretation Comments WBC (test code = See_Comment [Automated 1290-2) message] The sy stem which generated this result transmitted reference range : 4.20 - 10.70 10*3/?L. The reference range was not used to interpret this result as normal/abnormal . RBC (test code = See_Comment L [Automated 099-8) message] The sy stem which generated this [...] RDW-SD (test code = 47.2 fL 38.5-51.6 34057-7) RDW-CV (test code = 15.3 % 12.1-15.4 788-0) PLT (test code = See_Comment H [Automated 777-3) message] The sy stem which generated this result transmitted reference range : 150 - 328 10*3/ ?L. The reference r meredith was not used to interpret this result as normal/abnormal . MPV (test code = 9.4 fL 9.8-13 L 24589-6) NRBC/100 WBC (test See_Comment [Automat ed code = 6683960920) message] The system which generated this result transmitted reference range : 0.0 - 10.0 /100 WBCs. The refer ence range was not u sed to interpret th is result as normal/abnormal . NRBC x10^3 (test code <0.01 See_Comment [Auto mated = 3635148893) message] The s ystem which generated this result transmitted reference range : 10*3/?L. The reference range was not used to interpret this result as normal/abnormal . GRAN MAT (NEUT) % 81.1 % (test code = 770-8) IMM GRAN % (test code 0.80 % = 0262517692) LYMPH % (test code = 9.5 % 736-9) MONO % (test code = 7.8 % 5905-5) EOS % (test code = 0.6 % 713-8) BASO % (test code = 0.2 % 706-2) GRAN MAT x10^3(ANC) 8.26 10*3/uL 1.99-6.95 H (test code = 4893779289) IMM GRAN x10^3 (test 0.08 10*3/uL 0-0.06 H code = 6535330354) LYMPH x10^3 (test code 0.97 10*3/uL 1.09-3.23 L = 731-0) MONO x10^3 (test code 0.79 10*3/uL 0.36-1.02 = 742-7) EOS x10^3 (test code = 0.06 10*3/uL 0.06-0.53 711-2) BASO x10^3 (test code <0.03 0.01-0.09 = 704-7) Lab Interpretation Abnormal (test code = 40290-9) [facility] Metabolic Panel (NA, K, CL, CO2, GLUCOSE, BUN, CREATININE, CA)2020-05-06 15:02:00 Test Item Value Reference Range Interpretation Comments NA (test code = 134 mmol/L 135-145 L 5539261951) K (test code = 4.3 mmol/L 3.5-5 8085436906) CL (test code = 105 mmol/L 98-108 6166687952) CO2 TOTAL (test code = 23 mmol/L 23-31 1161263139) AGAP (test code = 2-16 8273874860) BUN (test code = 18 mg/dL 7-23 1134590017) GLUCOSE (test code = 96 mg/dL 70-110 1242644512) CREATININE (test code = 0.67 mg/dL 0.6-1.25 0361226103) CALCIUM (test code = 8.5 mg/dL 8.6-10.6 L 8928944241) eGFR Calculation mL/min/1.73m2 (Non-) (test code = 1094173121) eGFR Calculation mL/min/1.73m2 () (test code = 8090880566) GILBERTO (test code = GILBERTO) Association of [...] tests). Lab Interpretation Abnormal (test code = 35433-7) [facility] DistrictMagnesium Peiyl0990-02-80 15:02:00 Test Item Value Reference Range Interpretation Comments MAGNESIUM (test code = 7092793858) 1.8 mg/dL 1.7-2.4 Lab Interpretation (test code = Normal 39933-5) [facility] DistrictPhosphorus Ubckj5396-33-34 15:02:00 Test Item Value Reference Range Interpretation Comments PHOSPHORUS (test code = 9132008588) 3.2 mg/dL 2.5-5 Lab Interpretation (test code = Normal 98858-1) [facility] DistrictCBC with Sdffmjdotism6155-06-49 10:41:00 Test Item Value Reference Range Interpretation [...] RDW-SD (test code = 47.0 fL 38.5-51.6 20500-0) RDW-CV (test code = 15.2 % 12.1-15.4 788-0) PLT (test code = See_Comment H [Automated 777-3) message] The sy stem which generated this result transmitted reference range : 150 - 328 10*3/ ?L. The reference r meredith was not used to interpret this result as normal/abnormal . MPV (test code = 9.1 fL 9.8-13 L 87871-5) NRBC/100 WBC (test See_Comment [Automat ed code = 3992517602) message] The system which generated this result transmitted reference range : 0.0 - 10.0 /100 WBCs. The refer ence range was not u sed to interpret th is result as normal/abnormal . NRBC x10^3 (test code <0.01 See_Comment [Auto mated = 0510082683) message] The s ystem which generated this result transmitted reference range : 10*3/?L. The reference range was not used to interpret this result as normal/abnormal . GRAN MAT (NEUT) % 77.3 % (test code = 770-8) IMM GRAN % (test code 0.60 % = 4515884939) LYMPH % (test code = 11.6 % 736-9) MONO % (test code = 9.5 % 5905-5) EOS % (test code = 0.8 % 713-8) BASO % (test code = 0.2 % 706-2) GRAN MAT x10^3(ANC) 6.69 10*3/uL 1.99-6.95 (test code = 7458292589) IMM GRAN x10^3 (test 0.05 10*3/uL 0-0.06 code = 3930604579) LYMPH x10^3 (test code 1.00 10*3/uL 1.09-3.23 L = 731-0) MONO x10^3 (test code 0.82 10*3/uL 0.36-1.02 = 742-7) EOS x10^3 (test code = 0.07 10*3/uL 0.06-0.53 711-2) BASO x10^3 (test code <0.03 0.01-0.09 = 704-7) Lab Interpretation Abnormal (test code = 66841-4) [facility] Packed RBC (in units), 1 Units 2020-05-05 15:59:33 Test Item Value Reference Range Interpretation Comments Cross Match Result Compatible (test code = 4409) ISBT Blood Type Code (test code = 167307) Unit Blood Type (test O Pos code = 4410) Unit Number (test [id number] code = 4411) Blood Expiration Date & Time (test code = 702216) Status Information Issued (test code = 4412) Product Red Blood Cells Identification (test code = 4413) Product Code (test [id number] Performed at [facility] code = 4414) Laboratory Services - [facility] Blood [address] [facility] [address]Yraj Free: [phone] A No. [id number] [facility] DistrictType and Screen - ONCE Krxbnqv0237-51-39 11:34:29 Test Item Value Reference Range Interpretation Comments ABO & RH (test code O POSITIVE Performe d at [facility] = 20) Laboratory Serv [facility] Blood [facility] [facility] [address]Ly[place] Free: [phone] A No. [id number] IAT (test code = Negative Performed a t [facility] 1185) Laboratory Serv [facility] Blood [facility] [address] [facility] [address]Upow Free: [phone] A No. [id number] [facility] DistrictPREALBUMIN2020-09-12 10:19:00 Test Item Value Reference Range Interpretation Comments PALB (test code = 01737-0) 8.0 mg/dL 18-45 L Lab Interpretation (test code = Abnormal 19634-4) [facility] DistrictBasi Metabolic Panel (NA, K, CL, CO2, GLUCOSE, BUN, CREATININE, CA)2020-05-05 10:12:00 Test Item Value Reference Range Interpretation Comments NA (test code = 135 mmol/L 135-145 7333108864) K (test code = 4.1 mmol/L 3.5-5 0537695604) CL (test code = 106 mmol/L 98-108 5044986794) CO2 TOTAL (test code = 22 mmol/L 23-31 L 9564194339) AGAP (test code = 2-16 2603213909) BUN (test code = 25 mg/dL 7-23 H 2806626573) GLUCOSE (test code = 91 mg/dL 70-110 9912884101) CREATININE (test code = 0.68 mg/dL 0.6-1.25 8122399806) CALCIUM (test code = 7.4 mg/dL 8.6-10.6 L 5708133715) eGFR Calculation mL/min/1.73m2 (Non-) (test code = 7975553731) eGFR Calculation mL/min/1.73m2 () (test code = 6831709224) GILBERTO (test code = GILBERTO) Association of [...] tests). Lab Interpretation Abnormal (test code = 07091-6) [facility] DistrictMagnesium Wzxgk4411-98-43 10:12:00 Test Item Value Reference Range Interpretation Comments MAGNESIUM (test code = 4443471490) 1.8 mg/dL 1.7-2.4 Lab Interpretation (test code = Normal 62659-0) [facility] DistrictPhosphorus Mejda4482-59-77 10:12:00 Test Item Value Reference Range Interpretation Comments PHOSPHORUS (test code = 9905511676) 3.1 mg/dL 2.5-5 Lab Interpretation (test code = Normal 10625-8) [facility] with Beacvbkablce6595-48-23 09:18:00 Test Item Value Reference Range Interpretation [...] RDW-SD (test code = 48.4 fL 38.5-51.6 59988-5) RDW-CV (test code = 15.7 % 12.1-15.4 H 788-0) PLT (test code = See_Comment H [Automated 777-3) message] The sy stem which generated this result transmitted reference range : 150 - 328 10*3/ ?L. The reference r meredith was not used to interpret this result as normal/abnormal . MPV (test code = 9.1 fL 9.8-13 L 69407-9) NRBC/100 WBC (test See_Comment [Automat ed code = 3011565462) message] The system which generated this result transmitted reference range : 0.0 - 10.0 /100 WBCs. The refer ence range was not u sed to interpret th is result as normal/abnormal . NRBC x10^3 (test code <0.01 See_Comment [Auto mated = 3813532189) message] The s ystem which generated this result transmitted reference range : 10*3/?L. The reference range was not used to interpret this result as normal/abnormal . GRAN MAT (NEUT) % 79.0 % (test code = 770-8) IMM GRAN % (test code 0.70 % = 6164803851) LYMPH % (test code = 10.6 % 736-9) MONO % (test code = 8.9 % 5905-5) EOS % (test code = 0.5 % 713-8) BASO % (test code = 0.3 % 706-2) GRAN MAT x10^3(ANC) 7.81 10*3/uL 1.99-6.95 H (test code = 3363510208) IMM GRAN x10^3 (test 0.07 10*3/uL 0-0.06 H code = 3926591891) LYMPH x10^3 (test code 1.05 10*3/uL 1.09-3.23 L = 731-0) MONO x10^3 (test code 0.88 10*3/uL 0.36-1.02 = 742-7) EOS x10^3 (test code = 0.05 10*3/uL 0.06-0.53 L 711-2) BASO x10^3 (test code 0.03 10*3/uL 0.01-0.09 = 704-7) Lab Interpretation Abnormal (test code = 57708-6) [facility]INAL[facility]IS2020-09-12 06:03:00 Test Item Value Reference Range Interpretation Comments APPEARANCE (test code = Hazy Clear A 6998678207) COLOR (test code = Yellow Yellow 6809532336) PH (test code = 4.8-8.0 8601287095) SP GRAVITY (test code = 1.003-1.030 H 4629710027) GLU U QUAL (test code = Normal Normal 8256775611) BLOOD (test code = Negative Negative 6041142916) KETONES (test code = Negative Negative 1790612539) PROTEIN (test code = Negative Negative 2887-8) UROBILIN (test code = Normal Normal 8482390423) BILIRUBIN (test code = Negative Negative 8142621240) NITRITE (test code = Negative Negative 6127360352) LEUK ROGER (test code = Negative Negative 5392204730) RBC/HPF (test code = See_Comment H [Autom ated message] 4827796179) The system [employer] generated this result transmitted ref erence range: 0 - 3 HP F. The reference range was not used to int erpret this result as normal/abnormal . WBC/HPF (test code = See_Comment [Autom ated message] 9635390009) The system [employer] generated this result transmitted ref erence range: 0 - 5 HP F. The reference range was not used to int erpret this result as normal/abnormal . BACTERIA (test code = Few Negative A 5557342570) MUCOUS (test code = Slight Negative LPF A 2884735018) CA OXALATE (test code = See_Comment H [Au tomated message] 7297061400) The system [employer] generated this result transmitted ref erence range: <=1 HPF. The reference range was not used to int erpret this result as normal/abnormal . Lab Interpretation (test Abnormal code = 82098-3) [facility] DistrictCT ABDOMEN PELVIS W UISDWLRT6960-15-31 04:56:59 1. ?Interval removal of left subdiaphragmatic, [...] reviewed this study and agree with the abovereport.[facility] DistrictCOVID-19 (ID NOW RAPID TESTING)2020-05-05 03:40:00 Test Item Value Reference Range Interpretation Comments SARS-CoV-2 Rapid ID NOW Not Detected Not Detected (test code = 72330-7) GILBERTO (test code = GILBERTO) ID NOW COVID-19 Assay is an isothermal nucleic acid amplification test intended for the qualitative detection of nucleic acid from SARS-CoV-2 viral RNA in nasopharyngeal ([employer] ANALYST) specimens. It is used under Emergency Use [...] indicated. Lab Interpretation Normal (test code = 26872-2) [facility]. METABOLIC PANEL (54079)2020-05-05 03:02:00 Test Item Value Reference Range Interpretation Comments NA (test code = 134 mmol/L 135-145 L 2373025095) K (test code = 4.7 mmol/L 3.5-5 7434214257) CL (test code = 99 mmol/L 98-108 8954265958) CO2 TOTAL (test code = 24 mmol/L 23-31 9288118274) AGAP (test code = 2-16 7441520189) BUN (test code = 37 mg/dL 7-23 H 8320169155) GLUCOSE (test code = 105 mg/dL 70-110 1227983528) CREATININE (test code = 0.94 mg/dL 0.6-1.25 2232777977) TOTAL BILI (test code = 0.5 mg/dL 0.1-1.6 5284558176) CALCIUM (test code = 8.8 mg/dL 8.6-10.6 0643685461) T PROTEIN (test code = 6.2 g/dL 6.3-8.2 L 4312906390) ALBUMIN (test code = 3.0 g/dL 3.5-5 L 0376933228) ALK PHOS (test code = 150 U/L 34-122 H 5788113098) ALTv (test code = 28 U/L 5-50 1742-6) AST(SGOT) (test code = 23 U/L 13-40 1432686249) eGFR Calculation mL/min/1.73m2 (Non-) (test code = 4344776704) eGFR Calculation mL/min/1.73m2 () (test code = 3148707795) GILBERTO (test code = GILBERTO) Association of [...] tests). Lab Interpretation Abnormal (test code = 14630-7) [facility] DistrictLIPASE2020-09-12 03:02:00 Test Item Value Reference Range Interpretation Comments LIPASE (test code = 2439971258) 323 U/L 0-220 H Lab Interpretation (test code = Abnormal 09318-0) [facility] DistrictCBC WITH [id number] 02:43:00 Test Item Value Reference Range Interpretation [...] RDW-SD (test code = 45.7 fL 38.5-51.6 92857-2) RDW-CV (test code = 15.4 % 12.1-15.4 788-0) PLT (test code = See_Comment H [Automated 777-3) message] The system which generated this result transmit dain reference range : 150 - 328 10*3/ ?L. The reference range was not u sed to interpret th is result as normal/abnormal . MPV (test code = 8.9 fL 9.8-13 L 38996-3) NRBC/100 WBC (test See_Comment [Automat ed code = 3526104911) message] The system which generated this result transmit dain reference range : 0.0 - 10.0 /100 WBCs. The reference range was not used to interpret this result as normal/abnormal . NRBC x10^3 (test code <0.01 See_Comment [Auto mated = 1941503452) message] The system which generated this result transmit dain reference range : 10*3/?L. The reference range was not used to interpret this result as normal/abnormal . GRAN MAT (NEUT) % 82.6 % (test code = 770-8) IMM GRAN % (test code 0.60 % = 0789071657) LYMPH % (test code = 8.1 % 736-9) MONO % (test code = 8.1 % 5905-5) EOS % (test code = 0.4 % 713-8) BASO % (test code = 0.2 % 706-2) GRAN MAT x10^3(ANC) 11.18 10*3/uL 1.99-6.95 H (test code = 5978377012) IMM GRAN x10^3 (test 0.08 10*3/uL 0-0.06 H code = 1980359868) LYMPH x10^3 (test code 1.10 10*3/uL 1.09-3.23 = 731-0) MONO x10^3 (test code 1.09 10*3/uL 0.36-1.02 H = 742-7) EOS x10^3 (test code = 0.05 10*3/uL 0.06-0.53 L 711-2) BASO x10^3 (test code 0.03 10*3/uL 0.01-0.09 = 704-7) Lab Interpretation Abnormal (test code = 02844-4) [facility] METABOLIC PANEL (NA, K, CL, CO2, GLUCOSE, BUN, CREATININE, CA)2020-05-01 12:25:00 Test Item Value Reference Range Interpretation Comments NA (test code = 131 mmol/L 135-145 L 7428228615) K (test code = 4.7 mmol/L 3.5-5 9092742632) CL (test code = 97 mmol/L 98-108 L 9848511134) CO2 TOTAL (test code = 25 mmol/L 23-31 9237492310) AGAP (test code = 2-16 8916282291) BUN (test code = 30 mg/dL 7-23 H 1372862552) GLUCOSE (test code = 111 mg/dL 70-110 H 2018476302) CREATININE (test code = 0.69 mg/dL 0.6-1.25 2001964100) CALCIUM (test code = 9.3 mg/dL 8.6-10.6 6193079690) eGFR Calculation mL/min/1.73m2 (Non-) (test code = 7448220779) eGFR Calculation mL/min/1.73m2 () (test code = 0191472392) GILBERTO (test code = GILBERTO) Association of [...] tests). Lab Interpretation Abnormal (test code = 11782-3) [facility] DistrictMAGN[facility]IUM2020-09-08 12:07:00 Test Item Value Reference Range Interpretation Comments MAGNESIUM (test code = 4640474626) 2.3 mg/dL 1.7-2.4 Lab Interpretation (test code = Normal 29260-8) [facility] DistrictPHOSPHORUS2020-09-08 12:07:00 Test Item Value Reference Range Interpretation Comments PHOSPHORUS (test code = 8738721757) 4.6 mg/dL 2.5-5 Lab Interpretation (test code = Normal 94872-9) [facility] DistrictCB WITH [id number] 11:44:00 Test Item Value Reference Range Interpretation [...] RDW-SD (test code = 44.9 fL 38.5-51.6 89281-2) RDW-CV (test code = 14.8 % 12.1-15.4 788-0) PLT (test code = See_Comment H [Automated 777-3) message] The system which generated this result transmit dain reference range : 150 - 328 10*3/ ?L. The reference range was not u sed to interpret th is result as normal/abnormal . MPV (test code = 9.1 fL 9.8-13 L 95502-7) NRBC/100 WBC (test See_Comment [Automat ed code = 7840844812) message] The system which generated this result transmit dain reference range : 0.0 - 10.0 /100 WBCs. The reference range was not used to interpret this result as normal/abnormal . NRBC x10^3 (test code <0.01 See_Comment [Auto mated = 7007489487) message] The system which generated this result transmit dain reference range : 10*3/?L. The reference range was not used to interpret this result as normal/abnormal . GRAN MAT (NEUT) % 81.4 % (test code = 770-8) IMM GRAN % (test code 0.70 % = 7114857669) LYMPH % (test code = 8.7 % 736-9) MONO % (test code = 8.5 % 5905-5) EOS % (test code = 0.3 % 713-8) BASO % (test code = 0.4 % 706-2) GRAN MAT x10^3(ANC) 12.01 10*3/uL 1.99-6.95 H (test code = 2119379446) IMM GRAN x10^3 (test 0.10 10*3/uL 0-0.06 H code = 9034733221) LYMPH x10^3 (test code 1.28 10*3/uL 1.09-3.23 = 731-0) MONO x10^3 (test code 1.25 10*3/uL 0.36-1.02 H = 742-7) EOS x10^3 (test code = 0.04 10*3/uL 0.06-0.53 L 711-2) BASO x10^3 (test code 0.06 10*3/uL 0.01-0.09 = 704-7) Lab Interpretation Abnormal (test code = 20636-2) [facility] METABOLIC PANEL (NA, K, CL, CO2, GLUCOSE, BUN, CREATININE, CA)2020-04-29 12:08:00 Test Item Value Reference Range Interpretation Comments NA (test code = 130 mmol/L 135-145 L 1389659355) K (test code = 5.0 mmol/L 3.5-5 3384455397) CL (test code = 94 mmol/L 98-108 L 3379397060) CO2 TOTAL (test code = 27 mmol/L 23-31 1350735973) AGAP (test code = 2-16 3437170396) BUN (test code = 35 mg/dL 7-23 H 6009170136) GLUCOSE (test code = 116 mg/dL 70-110 H 7113247902) CREATININE (test code = 0.76 mg/dL 0.6-1.25 3375670891) CALCIUM (test code = 9.0 mg/dL 8.6-10.6 9917673111) eGFR Calculation mL/min/1.73m2 (Non-) (test code = 1052152499) eGFR Calculation mL/min/1.73m2 () (test code = 4853449360) GILBERTO (test code = GILBERTO) Association of [...] tests). Lab Interpretation Abnormal (test code = 66152-3) [facility]MAG[facility]IUM2020-09-06 12:01:00 Test Item Value Reference Range Interpretation Comments MAGNESIUM (test code = 9019450253) 2.3 mg/dL 1.7-2.4 Lab Interpretation (test code = Normal 35416-3) [facility] DistrictPHOSPHORUS2020-09-06 12:01:00 Test Item Value Reference Range Interpretation Comments PHOSPHORUS (test code = 8308946268) 4.5 mg/dL 2.5-5 Lab Interpretation (test code = Normal 06234-2) [facility] DistrictCB WITH [id number] 11:52:00 Test Item Value Reference Range Interpretation [...] RDW-SD (test code = 44.4 fL 38.5-51.6 20709-8) RDW-CV (test code = 14.7 % 12.1-15.4 788-0) PLT (test code = See_Comment H [Automated 777-3) message] The system which generated this result transmit dain reference range : 150 - 328 10*3/ ?L. The reference range was not u sed to interpret th is result as normal/abnormal . MPV (test code = 9.1 fL 9.8-13 L 25185-9) NRBC/100 WBC (test See_Comment [Automat ed code = 7460098407) message] The system which generated this result transmit dain reference range : 0.0 - 10.0 /100 WBCs. The reference range was not used to interpret this result as normal/abnormal . NRBC x10^3 (test code <0.01 See_Comment [Auto mated = 4345235198) message] The system which generated this result transmit dain reference range : 10*3/?L. The reference range was not used to interpret this result as normal/abnormal . GRAN MAT (NEUT) % 82.5 % (test code = 770-8) IMM GRAN % (test code 1.30 % = 2571240869) LYMPH % (test code = 7.1 % 736-9) MONO % (test code = 8.5 % 5905-5) EOS % (test code = 0.3 % 713-8) BASO % (test code = 0.3 % 706-2) GRAN MAT x10^3(ANC) 14.27 10*3/uL 1.99-6.95 H (test code = 8276696508) IMM GRAN x10^3 (test 0.23 10*3/uL 0-0.06 H code = 1453782894) LYMPH x10^3 (test code 1.23 10*3/uL 1.09-3.23 = 731-0) MONO x10^3 (test code 1.47 10*3/uL 0.36-1.02 H = 742-7) EOS x10^3 (test code = 0.05 10*3/uL 0.06-0.53 L 711-2) BASO x10^3 (test code 0.06 10*3/uL 0.01-0.09 = 704-7) Lab Interpretation Abnormal (test code = 51280-9) [facility] METABOLIC PANEL (NA, K, CL, CO2, GLUCOSE, BUN, CREATININE, CA)2020-04-28 10:15:00 Test Item Value Reference Range Interpretation Comments NA (test code = 130 mmol/L 135-145 L 3018162870) K (test code = 5.3 mmol/L 3.5-5 H 9610864539) CL (test code = 91 mmol/L 98-108 L 7348619981) CO2 TOTAL (test code = 29 mmol/L 23-31 5757764183) AGAP (test code = 2-16 6877705088) BUN (test code = 32 mg/dL 7-23 H 2762214557) GLUCOSE (test code = 101 mg/dL 70-110 4182278718) CREATININE (test code = 0.74 mg/dL 0.6-1.25 0650328684) CALCIUM (test code = 9.5 mg/dL 8.6-10.6 5357299184) eGFR Calculation mL/min/1.73m2 (Non-) (test code = 4391672080) eGFR Calculation mL/min/1.73m2 () (test code = 3326217499) GILBERTO (test code = GILBERTO) Association of [...] tests). Lab Interpretation Abnormal (test code = 53965-3) [facility]:12[facility]00 Test Item Value Reference Range Interpretation Comments MAGNESIUM (test code = 3041493886) 2.3 mg/dL 1.7-2.4 Lab Interpretation (test code = Normal 50562-5) [facility] [id number] 09:55:00 Test Item Value Reference Range Interpretation Comments WBC (test code = See_Comment H [Automated 4590-2) message] The system which generated this result transmit dain reference range : 4.20 - 10.70 10*3/?L. The reference range was not used to interpret this result as normal/abnormal . RBC (test code = See_Comment L [Automated 109-8) message] The system which generated this result [...] RDW-SD (test code = 45.1 fL 38.5-51.6 78905-2) RDW-CV (test code = 14.7 % 12.1-15.4 788-0) PLT (test code = See_Comment H [Automated 777-3) message] The system which generated this result transmit dain reference range : 150 - 328 10*3/ ?L. The reference range was not u sed to interpret th is result as normal/abnormal . MPV (test code = 9.5 fL 9.8-13 L 43919-1) NRBC/100 WBC (test See_Comment [Automat ed code = 8197431114) message] The system which generated this result transmit dain reference range : 0.0 - 10.0 /100 WBCs. The reference range was not used to interpret this result as normal/abnormal . NRBC x10^3 (test code <0.01 See_Comment [Auto mated = 8350343399) message] The system which generated this result transmit dain reference range : 10*3/?L. The reference range was not used to interpret this result as normal/abnormal . GRAN MAT (NEUT) % 81.1 % (test code = 770-8) IMM GRAN % (test code 1.40 % = 1536581195) LYMPH % (test code = 8.6 % 736-9) MONO % (test code = 7.9 % 5905-5) EOS % (test code = 0.5 % 713-8) BASO % (test code = 0.5 % 706-2) GRAN MAT x10^3(ANC) 14.68 10*3/uL 1.99-6.95 H (test code = 2597269552) IMM GRAN x10^3 (test 0.25 10*3/uL 0-0.06 H code = 3264488487) LYMPH x10^3 (test code 1.55 10*3/uL 1.09-3.23 = 731-0) MONO x10^3 (test code 1.43 10*3/uL 0.36-1.02 H = 742-7) EOS x10^3 (test code = 0.09 10*3/uL 0.06-0.53 711-2) BASO x10^3 (test code 0.09 10*3/uL 0.01-0.09 = 704-7) Lab Interpretation Abnormal (test code = 01706-7) [facility] METABOLIC PANEL (NA, K, CL, CO2, GLUCOSE, BUN, CREATININE, CA)2020-04-27 10:20:00 Test Item Value Reference Range Interpretation Comments NA (test code = 130 mmol/L 135-145 L 9697932285) K (test code = 4.5 mmol/L 3.5-5 7130028314) CL (test code = 93 mmol/L 98-108 L 5435795421) CO2 TOTAL (test code = 28 mmol/L 23-31 6576685520) AGAP (test code = 2-16 7158923495) BUN (test code = 31 mg/dL 7-23 H 7729870005) GLUCOSE (test code = 102 mg/dL 70-110 0810528406) CREATININE (test code = 0.81 mg/dL 0.6-1.25 6653285934) CALCIUM (test code = 9.0 mg/dL 8.6-10.6 6491609691) eGFR Calculation mL/min/1.73m2 (Non-) (test code = 7547149881) eGFR Calculation mL/min/1.73m2 () (test code = 8191400190) GILBERTO (test code = GILBERTO) Association of [...] tests). Lab Interpretation Abnormal (test code = 87985-4) [facility] 10:20:00 Test Item Value Reference Range Interpretation Comments MAGNESIUM (test code = 3041827004) 2.2 mg/dL 1.7-2.4 Lab Interpretation (test code = Normal 47316-9) [facility] WITH [id number] 09:49:00 Test Item Value Reference Range Interpretation Comments WBC (test code = See_Comment H [Automated 2390-2) message] The system which generated this result transmit dain reference range : 4.20 - 10.70 10*3/?L. The reference range was not used to interpret this result as normal/abnormal . RBC (test code = See_Comment L [Automated 805-8) message] The system which generated this result [...] RDW-SD (test code = 45.2 fL 38.5-51.6 97564-0) RDW-CV (test code = 14.5 % 12.1-15.4 788-0) PLT (test code = See_Comment H [Automated 777-3) message] The system which generated this result transmit dain reference range : 150 - 328 10*3/ ?L. The reference range was not u sed to interpret th is result as normal/abnormal . MPV (test code = 9.0 fL 9.8-13 L 15962-7) NRBC/100 WBC (test See_Comment [Automat ed code = 9078437491) message] The system which generated this result transmit dain reference range : 0.0 - 10.0 /100 WBCs. The reference range was not used to interpret this result as normal/abnormal . NRBC x10^3 (test code <0.01 See_Comment [Auto mated = 2408553454) message] The system which generated this result transmit dain reference range : 10*3/?L. The reference range was not used to interpret this result as normal/abnormal . GRAN MAT (NEUT) % 80.9 % (test code = 770-8) IMM GRAN % (test code 1.30 % = 6809883333) LYMPH % (test code = 8.9 % 736-9) MONO % (test code = 7.7 % 5905-5) EOS % (test code = 0.6 % 713-8) BASO % (test code = 0.6 % 706-2) GRAN MAT x10^3(ANC) 13.18 10*3/uL 1.99-6.95 H (test code = 0020358439) IMM GRAN x10^3 (test 0.21 10*3/uL 0-0.06 H code = 1861688940) LYMPH x10^3 (test code 1.45 10*3/uL 1.09-3.23 = 731-0) MONO x10^3 (test code 1.26 10*3/uL 0.36-1.02 H = 742-7) EOS x10^3 (test code = 0.09 10*3/uL 0.06-0.53 711-2) BASO x10^3 (test code 0.10 10*3/uL 0.01-0.09 H = 704-7) Lab Interpretation Abnormal (test code = 35682-5) [facility] METABOLIC PANEL (NA, K, CL, CO2, GLUCOSE, BUN, CREATININE, CA)2020-04-26 11:29:00 Test Item Value Reference Range Interpretation Comments NA (test code = 133 mmol/L 135-145 L 2852471740) K (test code = 4.7 mmol/L 3.5-5 1548449975) CL (test code = 98 mmol/L 98-108 2192109934) CO2 TOTAL (test code = 25 mmol/L 23-31 5738173011) AGAP (test code = 2-16 7074297928) BUN (test code = 26 mg/dL 7-23 H 1318770484) GLUCOSE (test code = 97 mg/dL 70-110 0591265140) CREATININE (test code = 0.73 mg/dL 0.6-1.25 6763723860) CALCIUM (test code = 8.7 mg/dL 8.6-10.6 4194838827) eGFR Calculation mL/min/1.73m2 (Non-) (test code = 5550494418) eGFR Calculation mL/min/1.73m2 () (test code = 2545424152) GILBERTO (test code = GILBERTO) Association of [...] tests). Lab Interpretation Abnormal (test code = 87642-3) [facility] 11:29:00 Test Item Value Reference Range Interpretation Comments MAGNESIUM (test code = 7662988100) 2.1 mg/dL 1.7-2.4 Lab Interpretation (test code = Normal 05309-5) [facility] WITH [id number] 10:27:00 Test Item Value Reference Range Interpretation Comments WBC (test code = See_Comment H [Automated 6590-2) message] The system which generated this result transmit dain reference range : 4.20 - 10.70 10*3/?L. The reference range was not used to interpret this result as normal/abnormal . RBC (test code = See_Comment L [Automated 619-8) message] The system which generated this result [...] RDW-SD (test code = 45.4 fL 38.5-51.6 44344-9) RDW-CV (test code = 14.5 % 12.1-15.4 788-0) PLT (test code = See_Comment H [Automated 777-3) message] The system which generated this result transmit dain reference range : 150 - 328 10*3/ ?L. The reference range was not u sed to interpret th is result as normal/abnormal . MPV (test code = 9.3 fL 9.8-13 L 69147-3) NRBC/100 WBC (test See_Comment [Automat ed code = 4433545516) message] The system which generated this result transmit dain reference range : 0.0 - 10.0 /100 WBCs. The reference range was not used to interpret this result as normal/abnormal . NRBC x10^3 (test code <0.01 See_Comment [Auto mated = 9466363728) message] The system which generated this result transmit dain reference range : 10*3/?L. The reference range was not used to interpret this result as normal/abnormal . GRAN MAT (NEUT) % 79.6 % (test code = 770-8) IMM GRAN % (test code 1.30 % = 5110877927) LYMPH % (test code = 8.6 % 736-9) MONO % (test code = 9.3 % 5905-5) EOS % (test code = 0.8 % 713-8) BASO % (test code = 0.4 % 706-2) GRAN MAT x10^3(ANC) 12.46 10*3/uL 1.99-6.95 H (test code = 6334214020) IMM GRAN x10^3 (test 0.21 10*3/uL 0-0.06 H code = 7775809328) LYMPH x10^3 (test code 1.34 10*3/uL 1.09-3.23 = 731-0) MONO x10^3 (test code 1.45 10*3/uL 0.36-1.02 H = 742-7) EOS x10^3 (test code = 0.13 10*3/uL 0.06-0.53 711-2) BASO x10^3 (test code 0.07 10*3/uL 0.01-0.09 = 704-7) Lab Interpretation Abnormal (test code = 99527-3) [facility] METABOLIC PANEL (NA, K, CL, CO2, GLUCOSE, BUN, CREATININE, CA)2020-04-25 10:03:00 Test Item Value Reference Range Interpretation Comments NA (test code = 133 mmol/L 135-145 L 1468479913) K (test code = 4.6 mmol/L 3.5-5 3276302877) CL (test code = 96 mmol/L 98-108 L 9769788511) CO2 TOTAL (test code = 27 mmol/L 23-31 5735036230) AGAP (test code = 2-16 0889160777) BUN (test code = 21 mg/dL 7-23 7017451538) GLUCOSE (test code = 108 mg/dL 70-110 1455861013) CREATININE (test code = 0.76 mg/dL 0.6-1.25 6888973045) CALCIUM (test code = 9.5 mg/dL 8.6-10.6 7652935909) eGFR Calculation mL/min/1.73m2 (Non-) (test code = 3431761868) eGFR Calculation mL/min/1.73m2 () (test code = 9691489955) GILBERTO (test code = GILBERTO) Association of [...] tests). Lab Interpretation Abnormal (test code = 70613-7) [facility] 10:03:00 Test Item Value Reference Range Interpretation Comments MAGNESIUM (test code = 2874096736) 2.4 mg/dL 1.7-2.4 Lab Interpretation (test code = Normal 73380-7) [facility] WITH [id number] 09:48:00 Test Item Value Reference Range Interpretation Comments WBC (test code = See_Comment H [Automated 2090-2) message] The system which generated this result transmit dain reference range : 4.20 - 10.70 10*3/?L. The reference range was not used to interpret this result as normal/abnormal . RBC (test code = See_Comment L [Automated 049-8) message] The system which generated this result [...] RDW-SD (test code = 45.7 fL 38.5-51.6 03473-3) RDW-CV (test code = 14.3 % 12.1-15.4 788-0) PLT (test code = See_Comment HH [Automated 777-3) message] The system which generated this result transmit dain reference range : 150 - 328 10*3/ ?L. The reference range was not u sed to interpret th is result as normal/abnormal . MPV (test code = 9.1 fL 9.8-13 L 59062-7) NRBC/100 WBC (test See_Comment [Automat ed code = 0655190945) message] The system which generated this result transmit dain reference range : 0.0 - 10.0 /100 WBCs. The reference range was not used to interpret this result as normal/abnormal . NRBC x10^3 (test code <0.01 See_Comment [Auto mated = 6127305092) message] The system which generated this result transmit dain reference range : 10*3/?L. The reference range was not used to interpret this result as normal/abnormal . GRAN MAT (NEUT) % 78.9 % (test code = 770-8) IMM GRAN % (test code 1.70 % = 3787145812) LYMPH % (test code = 8.7 % 736-9) MONO % (test code = 9.1 % 5905-5) EOS % (test code = 0.9 % 713-8) BASO % (test code = 0.7 % 706-2) GRAN MAT x10^3(ANC) 11.96 10*3/uL 1.99-6.95 H (test code = 2501118438) IMM GRAN x10^3 (test 0.26 10*3/uL 0-0.06 H code = 0325113114) LYMPH x10^3 (test code 1.32 10*3/uL 1.09-3.23 = 731-0) MONO x10^3 (test code 1.38 10*3/uL 0.36-1.02 H = 742-7) EOS x10^3 (test code = 0.13 10*3/uL 0.06-0.53 711-2) BASO x10^3 (test code 0.11 10*3/uL 0.01-0.09 H = 704-7) Lab Interpretation Abnormal (test code = 02816-9) [facility] WITH [id number] 10:40:00 Test Item Value Reference Range Interpretation [...] RDW-SD (test code = 46.3 fL 38.5-51.6 35477-1) RDW-CV (test code = 14.5 % 12.1-15.4 788-0) PLT (test code = See_Comment HH [Automated 777-3) message] The sy stem which generated this result transmitted reference range : 150 - 328 10*3/ ?L. The reference r meredith was not used to interpret this result as normal/abnormal . MPV (test code = 9.1 fL 9.8-13 L 45315-4) NRBC/100 WBC (test See_Comment [Automat ed code = 5259376770) message] The system which generated this result transmitted reference range : 0.0 - 10.0 /100 WBCs. The refer ence range was not u sed to interpret th is result as normal/abnormal . NRBC x10^3 (test code <0.01 See_Comment [Auto mated = 2307712355) message] The s ystem which generated this result transmitted reference range : 10*3/?L. The reference range was not used to interpret this result as normal/abnormal . GRAN MAT (NEUT) % 74.7 % (test code = 770-8) IMM GRAN % (test code 2.00 % = 4180226900) LYMPH % (test code = 10.0 % 736-9) MONO % (test code = 11.4 % 5905-5) EOS % (test code = 1.3 % 713-8) BASO % (test code = 0.6 % 706-2) GRAN MAT x10^3(ANC) 9.44 10*3/uL 1.99-6.95 H (test code = 5367141624) IMM GRAN x10^3 (test 0.25 10*3/uL 0-0.06 H code = 4749682157) LYMPH x10^3 (test code 1.26 10*3/uL 1.09-3.23 = 731-0) MONO x10^3 (test code 1.44 10*3/uL 0.36-1.02 H = 742-7) EOS x10^3 (test code = 0.16 10*3/uL 0.06-0.53 711-2) BASO x10^3 (test code 0.07 10*3/uL 0.01-0.09 = 704-7) Lab Interpretation Abnormal (test code = 12394-3) [facility] METABOLIC PANEL (NA, K, CL, CO2, GLUCOSE, BUN, CREATININE, CA)2020-04-24 10:39:00 Test Item Value Reference Range Interpretation Comments NA (test code = 133 mmol/L 135-145 L 7373905639) K (test code = 4.3 mmol/L 3.5-5 1237941091) CL (test code = 99 mmol/L 98-108 1297191419) CO2 TOTAL (test code = 29 mmol/L 23-31 3930141687) AGAP (test code = 2-16 8544065694) BUN (test code = 20 mg/dL 7-23 9681286915) GLUCOSE (test code = 109 mg/dL 70-110 9687942931) CREATININE (test code = 0.78 mg/dL 0.6-1.25 5767163010) CALCIUM (test code = 8.4 mg/dL 8.6-10.6 L 0565316528) eGFR Calculation mL/min/1.73m2 (Non-) (test code = 9829021020) eGFR Calculation mL/min/1.73m2 () (test code = 8516317935) GILBERTO (test code = GILBERTO) Association of [...] tests). Lab Interpretation Abnormal (test code = 60530-6) [facility] 10:39:00 Test Item Value Reference Range Interpretation Comments MAGNESIUM (test code = 8585540861) 2.2 mg/dL 1.7-2.4 Lab Interpretation (test code = Normal 22932-8) [facility] PEL[facility] W [id number] 09:30:06 1. ?Overall, no significant change in [...] Preliminary Report Dictated by Resident: Louis Ames ?MD Krystal., have reviewed this study and agree with [...] reviewed this study and agree with theabove report.[facility] THORAX W [id number] 03:46:28 Acute pulmonary emboli in the anterior [...] Preliminary Report Dictated by Resident: Louis Rios ?MD Krystal., have reviewed this study and agree with [...] andmorphology. No significant pericardial thickening or effusion. Zljhieje-ki-aohyt cardiomediastinal shift. Scattered subcentimeter mediastinal and bilateral [...] andmorphology. No significant pericardial thickening or effusion. Kddkdunz-nd-pjxte cardiomediastinal shift.Scattered subcentimeter mediastinal and bilateral hilar [...] reviewed this study and agree with theabove report.[facility] NOW RAPID TESTING)2020-04-23 17:45:00 Test Item Value Reference Range Interpretation Comments SARS-CoV-2 Rapid ID NOW Not Detected Not Detected (test code = 01007-5) GILBERTO (test code = GILBERTO) ID NOW COVID-19 Assay is an isothermal nucleic acid amplification test intended for the qualitative detection of nucleic acid from SARS-CoV-2 viral RNA in nasopharyngeal ([employer]) specimens. It is used under Emergency Use [...] indicated. Lab Interpretation Normal (test code = 81914-8) [facility]2020-08-31 17:40:00 Test Item Value Reference Range Interpretation Comments PALB (test code = 16084-9) 11.8 mg/dL 18-45 L Lab Interpretation (test code = Abnormal 05079-2) [facility]ST 1 [id number] 15:00:55 Stable appearance of left pleural effusion [...] silhouette is normal. No acute osseous abnormality. [facility], Radiant Results Inft User - 04/23/2020 10:02 [...] reviewed this study and agree with theabove report.[facility]OT[facility]SIUM [id number] 14:14:00 Test Item Value Reference Range Interpretation Comments K (test code = 5823960787) 4.8 mmol/L 3.5-5 Lab Interpretation (test code = Normal 86671-4) [facility] WITH [id number] 11:30:00 Test Item Value Reference Range Interpretation [...] RDW-SD (test code = 45.0 fL 38.5-51.6 61039-8) RDW-CV (test code = 14.5 % 12.1-15.4 788-0) PLT (test code = See_Comment HH [Automated 777-3) message] The sy stem which generated this result transmitted reference range : 150 - 328 10*3/ ?L. The reference r meredith was not used to interpret this result as normal/abnormal . MPV (test code = 9.4 fL 9.8-13 L 09538-1) IPF % (test code = 1.6 % 1.2-10.7 Platelet count 6457211050) measured by fluorescence method. NRBC/100 WBC (test See_Comment [Automat ed code = 0006806925) message] The system which generated this result transmitted reference range : 0.0 - 10.0 /100 WBCs. The refer ence range was not u sed to interpret th is result as normal/abnormal . NRBC x10^3 (test code <0.01 See_Comment [Auto mated = 9866212694) message] The s ystem which generated this result transmitted reference range : 10*3/?L. The reference range was not used to interpret this result as normal/abnormal . GRAN MAT (NEUT) % 73.4 % (test code = 770-8) IMM GRAN % (test code 1.80 % = 7015814379) LYMPH % (test code = 12.6 % 736-9) MONO % (test code = 10.8 % 5905-5) EOS % (test code = 1.0 % 713-8) BASO % (test code = 0.4 % 706-2) GRAN MAT x10^3(ANC) 9.57 10*3/uL 1.99-6.95 H (test code = 9672683957) IMM GRAN x10^3 (test 0.24 10*3/uL 0-0.06 H code = 8296032014) LYMPH x10^3 (test code 1.64 10*3/uL 1.09-3.23 = 731-0) MONO x10^3 (test code 1.41 10*3/uL 0.36-1.02 H = 742-7) EOS x10^3 (test code = 0.13 10*3/uL 0.06-0.53 711-2) BASO x10^3 (test code 0.05 10*3/uL 0.01-0.09 = 704-7) Lab Interpretation Abnormal (test code = 62212-3) [facility] METABOLIC PANEL (NA, K, CL, CO2, GLUCOSE, BUN, CREATININE, CA)2020-04-23 10:52:00 Test Item Value Reference Range Interpretation Comments NA (test code = 132 mmol/L 135-145 L 5582293560) K (test code = 5.7 mmol/L 3.5-5 H 7171762927) CL (test code = 97 mmol/L 98-108 L 1752144610) CO2 TOTAL (test code = 26 mmol/L - 1928322782) AGAP (test code = 2-16 2388622637) BUN (test code = 34 mg/dL 7-23 H 8936587572) GLUCOSE (test code = 101 mg/dL 70-110 0933364958) CREATININE (test code = 0.85 mg/dL 0.6-1.25 2117727687) CALCIUM (test code = 9.0 mg/dL 8.6-10.6 4729447811) eGFR Calculation mL/min/1.73m2 (Non-) (test code = 7096851097) eGFR Calculation mL/min/1.73m2 () (test code = 7444097484) GILBERTO (test code = GILBERTO) Association of [...] tests). Lab Interpretation Abnormal (test code = 37233-7) [facility] Test Item Value Reference Range Interpretation Comments MAGNESIUM (test code = 5778560691) 2.3 mg/dL 1.7-2.4 Lab Interpretation (test code = Normal 24927-6) [facility] 1 [id number] 13:26:55 FINDINGS/IMPRESSION: 1. ?A left pigtail chest [...] pleural effusion COMPARISON: Chest x-ray on 04/21/2020 [facility], Radiant Results Inft User - 04/22/2020 8:28 [...] reviewed this study and agree with theabove report.[facility] 1 VW 2020-04-22 13:24:27FINDINGS/IMPRESSION: 1. ?A [...] this study and agree with theabove report. [facility] (NA, K, CL, CO2, GLUCOSE, BUN, CREATININE, CA)2020-04-22 11:49:00 Test Item Value Reference Range Interpretation Comments NA (test code = 132 mmol/L 135-145 L 0268958231) K (test code = 4.7 mmol/L 3.5-5 4846469589) CL (test code = 97 mmol/L 98-108 L 9471215613) CO2 TOTAL (test code = 30 mmol/L 23-31 2294265078) AGAP (test code = 2-16 7692997284) BUN (test code = 28 mg/dL 7-23 H 6475432391) GLUCOSE (test code = 117 mg/dL 70-110 H 8490545170) CREATININE (test code = 0.88 mg/dL 0.6-1.25 7215211472) CALCIUM (test code = 8.8 mg/dL 8.6-10.6 8632273906) eGFR Calculation mL/min/1.73m2 (Non-) (test code = 8764189005) eGFR Calculation mL/min/1.73m2 () (test code = 8937754346) GILBERTO (test code = GILBERTO) Association of [...] tests). Lab Interpretation Abnormal (test code = 94155-2) [facility]-08-30 11:49:00 Test Item Value Reference Range Interpretation Comments MAGNESIUM (test code = 9586297020) 2.4 mg/dL 1.7-2.4 Lab Interpretation (test code = Normal 56501-1) [facility] WITH [id number] 11:23:00 Test Item Value Reference Range Interpretation Comments WBC (test code = See_Comment H [Automated 6790-2) message] The sy stem which generated this result transmitted reference range : 4.20 - 10.70 10*3/?L. The reference range was not used to interpret this result as normal/abnormal . RBC (test code = See_Comment L [Automated 379-8) message] The sy stem which generated this [...] RDW-SD (test code = 44.9 fL 38.5-51.6 68007-1) RDW-CV (test code = 14.4 % 12.1-15.4 788-0) PLT (test code = See_Comment HH [Automated 777-3) message] The sy stem which generated this result transmitted reference range : 150 - 328 10*3/ ?L. The reference r meredith was not used to interpret this result as normal/abnormal . MPV (test code = 9.5 fL 9.8-13 L 73119-1) NRBC/100 WBC (test See_Comment [Automat ed code = 1705311965) message] The system which generated this result transmitted reference range : 0.0 - 10.0 /100 WBCs. The refer ence range was not u sed to interpret th is result as normal/abnormal . NRBC x10^3 (test code <0.01 See_Comment [Auto mated = 6537206749) message] The s ystem which generated this result transmitted reference range : 10*3/?L. The reference range was not used to interpret this result as normal/abnormal . GRAN MAT (NEUT) % 80.3 % (test code = 770-8) IMM GRAN % (test code 1.50 % = 1187479497) LYMPH % (test code = 7.2 % 736-9) MONO % (test code = 9.7 % 5905-5) EOS % (test code = 0.7 % 713-8) BASO % (test code = 0.6 % 706-2) GRAN MAT x10^3(ANC) 9.99 10*3/uL 1.99-6.95 H (test code = 7594078827) IMM GRAN x10^3 (test 0.19 10*3/uL 0-0.06 H code = 6749024819) LYMPH x10^3 (test code 0.90 10*3/uL 1.09-3.23 L = 731-0) MONO x10^3 (test code 1.21 10*3/uL 0.36-1.02 H = 742-7) EOS x10^3 (test code = 0.09 10*3/uL 0.06-0.53 711-2) BASO x10^3 (test code 0.07 10*3/uL 0.01-0.09 = 704-7) Lab Interpretation Abnormal (test code = 47289-2) [facility] WITH [id number] 14:15:00 Test Item Value Reference Range Interpretation [...] RDW-SD (test code = 44.4 fL 38.5-51.6 62302-9) RDW-CV (test code = 14.2 % 12.1-15.4 788-0) PLT (test code = See_Comment HH [Automated 777-3) message] The sy stem which generated this result transmitted reference range : 150 - 328 10*3/ ?L. The reference r meredith was not used to interpret this result as normal/abnormal . MPV (test code = 9.0 fL 9.8-13 L 97396-3) NRBC/100 WBC (test See_Comment [Automat ed code = [id number]) message] The system which generated this result transmitted reference range : 0.0 - 10.0 /100 WBCs. The refer ence range was not u sed to interpret th is result as normal/abnormal . NRBC x10^3 (test code <0.01 See_Comment [Auto mated = [id number]) message] The s ystem which generated this result transmitted reference range : 10*3/?L. The reference range was not used to interpret this result as normal/abnormal . GRAN MAT (NEUT) % 76.4 % (test code = 770-8) IMM GRAN % (test code 1.30 % = 2161902133) LYMPH % (test code = 10.9 % 736-9) MONO % (test code = 9.6 % 5905-5) EOS % (test code = 1.1 % 713-8) BASO % (test code = 0.7 % 706-2) GRAN MAT x10^3(ANC) 9.41 10*3/uL 1.99-6.95 H (test code = 8547909540) IMM GRAN x10^3 (test 0.16 10*3/uL 0-0.06 H code = 4582073837) LYMPH x10^3 (test code 1.34 10*3/uL 1.09-3.23 = 731-0) MONO x10^3 (test code 1.18 10*3/uL 0.36-1.02 H = 742-7) EOS x10^3 (test code = 0.13 10*3/uL 0.06-0.53 711-2) BASO x10^3 (test code 0.08 10*3/uL 0.01-0.09 = 704-7) Lab Interpretation Abnormal (test code = 13671-5) [facility] METABOLIC PANEL (NA, K, CL, CO2, GLUCOSE, BUN, CREATININE, CA)2020-04-21 13:47:00 Test Item Value Reference Range Interpretation Comments NA (test code = 130 mmol/L 135-145 L 6279259766) K (test code = 4.8 mmol/L 3.5-5 7483734513) CL (test code = 95 mmol/L 98-108 L 8450325893) CO2 TOTAL (test code = 29 mmol/L 23-31 9084912963) AGAP (test code = 2-16 3375981282) BUN (test code = 25 mg/dL 7-23 H 0930624199) GLUCOSE (test code = 98 mg/dL 70-110 2283536308) CREATININE (test code = 0.78 mg/dL 0.6-1.25 9997786510) CALCIUM (test code = 8.2 mg/dL 8.6-10.6 L 1962676133) eGFR Calculation mL/min/1.73m2 (Non-) (test code = 9469368506) eGFR Calculation mL/min/1.73m2 () (test code = 3753645106) GILBERTO (test code = GILBERTO) Association of [...] tests). Lab Interpretation Abnormal (test code = 66316-8) [facility] 13:47:00 Test Item Value Reference Range Interpretation Comments MAGNESIUM (test code = 2218829013) 2.1 mg/dL 1.7-2.4 Lab Interpretation (test code = Normal 47699-9) [facility]2020-08[facility]28 21:30:00 Test Item Value Reference Range Interpretation Comments PALB (test code = 90550-4) 9.3 mg/dL 18-45 L Lab Interpretation (test code = Abnormal 97273-5) [facility] [id number] 14:32:00 Test Item Value Reference Range Interpretation Comments BODY FLUID CULT No organisms isolated (test code = 611-4) Gram stain (test Occasional (Rare) code = 664-3) Polymorphonuclear leukocytes [facility] [id number] 13:09:21EXAM: XR CHEST 1 VW HISTORY: ct [...] heart and great vessels are normal. ? [facility], Radiant Results Inft User - 04/20/2020 8:10 [...] The heart and great vessels are normal. [facility] (NA, K, CL, CO2, GLUCOSE, BUN, CREATININE, CA)2020-04-20 11:00:00 Test Item Value Reference Range Interpretation Comments NA (test code = 132 mmol/L 135-145 L 4870567483) K (test code = 5.2 mmol/L 3.5-5 H 6996197326) CL (test code = 100 mmol/L 98-108 1490642964) CO2 TOTAL (test code = 24 mmol/L 23-31 2053700390) AGAP (test code = 2-16 6001680777) BUN (test code = 19 mg/dL 7-23 7834165571) GLUCOSE (test code = 121 mg/dL 70-110 H 2226973422) CREATININE (test code = 0.77 mg/dL 0.6-1.25 9366578778) CALCIUM (test code = 8.2 mg/dL 8.6-10.6 L 0689843870) eGFR Calculation mL/min/1.73m2 (Non-) (test code = 8418648765) eGFR Calculation mL/min/1.73m2 () (test code = 5490685446) GILBERTO (test code = GILBERTO) Association of [...] tests). Lab Interpretation Abnormal (test code = 71720-8) [facility]2020-08-28 11:00:00 Test Item Value Reference Range Interpretation Comments MAGNESIUM (test code = 2213377195) 2.1 mg/dL 1.7-2.4 Lab Interpretation (test code = Normal 95159-1) [facility]2020-08-28 11:00:00 Test Item Value Reference Range Interpretation Comments PHOSPHORUS (test code = 6253716009) 3.9 mg/dL 2.5-5 Lab Interpretation (test code = Normal 20918-8) [facility] WITH [id number] 10:23:00 Test Item Value Reference Range Interpretation Comments WBC (test code = See_Comment H [Automated 9090-2) message] The system which generated this result transmit dain reference range : 4.20 - 10.70 10*3/?L. The reference range was not used to interpret this result as normal/abnormal . RBC (test code = See_Comment L [Automated 439-8) message] The system which generated this result [...] RDW-SD (test code = 45.2 fL 38.5-51.6 19388-3) RDW-CV (test code = 14.2 % 12.1-15.4 788-0) PLT (test code = See_Comment HH [Automated 777-3) message] The system which generated this result transmit dain reference range : 150 - 328 10*3/ ?L. The reference range was not u sed to interpret th is result as normal/abnormal . MPV (test code = 9.3 fL 9.8-13 L 81257-8) NRBC/100 WBC (test See_Comment [Automat ed code = 9176523371) message] The system which generated this result transmit dain reference range : 0.0 - 10.0 /100 WBCs. The reference range was not used to interpret this result as normal/abnormal . NRBC x10^3 (test code <0.01 See_Comment [Auto mated = 7950754603) message] The system which generated this result transmit dain reference range : 10*3/?L. The reference range was not used to interpret this result as normal/abnormal . GRAN MAT (NEUT) % 79.8 % (test code = 770-8) IMM GRAN % (test code 1.50 % = 3679403172) LYMPH % (test code = 9.8 % 736-9) MONO % (test code = 7.5 % 5905-5) EOS % (test code = 0.6 % 713-8) BASO % (test code = 0.8 % 706-2) GRAN MAT x10^3(ANC) 10.64 10*3/uL 1.99-6.95 H (test code = 0056528890) IMM GRAN x10^3 (test 0.20 10*3/uL 0-0.06 H code = 5626038854) LYMPH x10^3 (test code 1.31 10*3/uL 1.09-3.23 = 731-0) MONO x10^3 (test code 1.00 10*3/uL 0.36-1.02 = 742-7) EOS x10^3 (test code = 0.08 10*3/uL 0.06-0.53 711-2) BASO x10^3 (test code 0.10 10*3/uL 0.01-0.09 H = 704-7) Lab Interpretation Abnormal (test code = 51726-7) [facility] 1 [id number] 12:25:53 No residual pleural effusion noted. Preliminary [...] reviewed this study and agree with theabove report.[facility] (NA, K, CL, CO2, GLUCOSE, BUN, CREATININE, CA)2020-04-19 11:09:00 Test Item Value Reference Range Interpretation Comments NA (test code = 133 mmol/L 135-145 L 9828955802) K (test code = 4.2 mmol/L 3.5-5 8635044113) CL (test code = 101 mmol/L 98-108 4528224640) CO2 TOTAL (test code = 26 mmol/L 23-31 6573450874) AGAP (test code = 2-16 2110694711) BUN (test code = 15 mg/dL 7-23 2789395211) GLUCOSE (test code = 113 mg/dL 70-110 H 3238602038) CREATININE (test code = 0.73 mg/dL 0.6-1.25 4647836095) CALCIUM (test code = 8.1 mg/dL 8.6-10.6 L 6960274425) eGFR Calculation mL/min/1.73m2 (Non-) (test code = 8130008910) eGFR Calculation mL/min/1.73m2 () (test code = 8621393749) GILBERTO (test code = GILBERTO) Association of [...] tests). Lab Interpretation Abnormal (test code = 53732-1) [facility]2020-08-27 11:09:00 Test Item Value Reference Range Interpretation Comments MAGNESIUM (test code = 1084753418) 2.1 mg/dL 1.7-2.4 Lab Interpretation (test code = Normal 36668-8) [facility]2020-08-27 11:09:00 Test Item Value Reference Range Interpretation Comments PHOSPHORUS (test code = 7465030410) 3.9 mg/dL 2.5-5 Lab Interpretation (test code = Normal 43359-9) [facility] [id number] 10:59:00 Test Item Value Reference Range Interpretation [...] RDW-SD (test code = 46.0 fL 38.5-51.6 86242-8) RDW-CV (test code = 14.2 % 12.1-15.4 788-0) PLT (test code = See_Comment HH [Automated 777-3) message] The sy stem which generated this result transmitted reference range : 150 - 328 10*3/ ?L. The reference r meredith was not used to interpret this result as normal/abnormal . MPV (test code = 9.3 fL 9.8-13 L 58206-7) NRBC/100 WBC (test See_Comment [Automat ed code = 7530270645) message] The system which generated this result transmitted reference range : 0.0 - 10.0 /100 WBCs. The refer ence range was not u sed to interpret th is result as normal/abnormal . NRBC x10^3 (test code <0.01 See_Comment [Auto mated = 0069033613) message] The s ystem which generated this result transmitted reference range : 10*3/?L. The reference range was not used to interpret this result as normal/abnormal . GRAN MAT (NEUT) % 79.2 % (test code = 770-8) IMM GRAN % (test code 1.00 % = 1182406593) LYMPH % (test code = 11.4 % 736-9) MONO % (test code = 6.7 % 5905-5) EOS % (test code = 1.0 % 713-8) BASO % (test code = 0.7 % 706-2) GRAN MAT x10^3(ANC) 9.49 10*3/uL 1.99-6.95 H (test code = 4688352782) IMM GRAN x10^3 (test 0.12 10*3/uL 0-0.06 H code = 8851658051) LYMPH x10^3 (test code 1.36 10*3/uL 1.09-3.23 = 731-0) MONO x10^3 (test code 0.80 10*3/uL 0.36-1.02 = 742-7) EOS x10^3 (test code = 0.12 10*3/uL 0.06-0.53 711-2) BASO x10^3 (test code 0.08 10*3/uL 0.01-0.09 = 704-7) Lab Interpretation Abnormal (test code = 92099-0) [facility] [id number] 22:29:00 Test Item Value Reference Range Interpretation Comments Blood Culture-Aerobic No organisms No growth Previo us (test code = 37350-8) isolated prelim inary verified result was Culture In Progress on 04/13/2020 at 06 06 CDT Blood Culture positive. No growth AA Previous Culture-Anaerobic See Blood Culture preli minary (test code = 11721-1) Workup for verifi ed result additional was Culture In information. Progress on 04/12/2020 at 18 01 CDT Lab Interpretation Abnormal (test code = 22280-1) [facility] WITH TUBE WITH IMAGING 2020-04-18 15:38:00Successful image guided 10 [place] pigtail chest tube insertioninto the left [...] was obtained. Prior to beginning the procedure, [place] Protocolwas performed to confirm the patient's identity [...] pleural space. The tractwas dilated to 10 [place], and a 10 [place] pigtail chest tube was insertedand coiled [...] a large amount of pleural fluid. [facility], Radiant Results Inft User - 04/18/2020 10:39 [...] was obtained. Prior to beginning the procedure, [place] Protocolwas performed to confirm the patient's identity [...] pleural space. The tractwas dilated to 10 [place], and a 10 [place] pigtail chest tube was insertedand coiled [...] of pleural fluid. IMPRESSIONSuccessful image guided 10 [place] pigtail chest tube insertioninto the left pleural space. PLAN: Post procedure chest radiograph will be obtained.[facility] 1 [id number] 13:37:38 Hazy left midlung opacity, may represent [...] reviewed this study and agree with the abovereport.[facility] (NA, K, CL, CO2, GLUCOSE, BUN, CREATININE, CA)2020-04-18 11:18:00 Test Item Value Reference Range Interpretation Comments NA (test code = 134 mmol/L 135-145 L 4317866083) K (test code = 4.4 mmol/L 3.5-5 9742492700) CL (test code = 102 mmol/L 98-108 2291274448) CO2 TOTAL (test code = 26 mmol/L 23-31 3453685055) AGAP (test code = 2-16 2318575073) BUN (test code = 12 mg/dL 7-23 0040060502) GLUCOSE (test code = 106 mg/dL 70-110 0179254109) CREATININE (test code = 0.74 mg/dL 0.6-1.25 6834282045) CALCIUM (test code = 7.5 mg/dL 8.6-10.6 L 8135055100) eGFR Calculation mL/min/1.73m2 (Non-) (test code = 9726039790) eGFR Calculation mL/min/1.73m2 () (test code = 4247303834) GILBERTO (test code = GILBERTO) Association of [...] tests). Lab Interpretation Abnormal (test code = 60549-7) [facility]2020-08-26 11:18:00 Test Item Value Reference Range Interpretation Comments MAGNESIUM (test code = 5319311068) 2.0 mg/dL 1.7-2.4 Lab Interpretation (test code = Normal 14110-6) [facility]2020-08-26 11:18:00 Test Item Value Reference Range Interpretation Comments PHOSPHORUS (test code = 0678415864) 3.4 mg/dL 2.5-5 Lab Interpretation (test code = Normal 67808-9) [facility] [id number] 10:46:00 Test Item Value Reference Range Interpretation [...] RDW-SD (test code = 46.5 fL 38.5-51.6 83824-0) RDW-CV (test code = 14.5 % 12.1-15.4 788-0) PLT (test code = See_Comment HH [Automated 777-3) message] The system which generated this result transmit dain reference range : 150 - 328 10*3/ ?L. The reference range was not u sed to interpret th is result as normal/abnormal . MPV (test code = 9.6 fL 9.8-13 L 80089-0) NRBC/100 WBC (test See_Comment [Automat ed code = 1288253836) message] The system which generated this result transmit dain reference range : 0.0 - 10.0 /100 WBCs. The reference range was not used to interpret this result as normal/abnormal . NRBC x10^3 (test code <0.01 See_Comment [Auto mated = 7257304037) message] The system which generated this result transmit dain reference range : 10*3/?L. The reference range was not used to interpret this result as normal/abnormal . GRAN MAT (NEUT) % 82.1 % (test code = 770-8) IMM GRAN % (test code 0.90 % = 3489849663) LYMPH % (test code = 9.2 % 736-9) MONO % (test code = 6.6 % 5905-5) EOS % (test code = 0.7 % 713-8) BASO % (test code = 0.5 % 706-2) GRAN MAT x10^3(ANC) 10.02 10*3/uL 1.99-6.95 H (test code = 1355560815) IMM GRAN x10^3 (test 0.11 10*3/uL 0-0.06 H code = 9110926531) LYMPH x10^3 (test code 1.12 10*3/uL 1.09-3.23 = 731-0) MONO x10^3 (test code 0.80 10*3/uL 0.36-1.02 = 742-7) EOS x10^3 (test code = 0.08 10*3/uL 0.06-0.53 711-2) BASO x10^3 (test code 0.06 10*3/uL 0.01-0.09 = 704-7) Lab Interpretation Abnormal (test code = 89587-2) [facility] [id number] 20:01:00 Test Item Value Reference Range Interpretation Comments Blood Culture-Aerobic No organisms No growth Previo us (test code = 25144-0) isolated prelim inary verified result was Culture [...] Culture-Anaerobic isolated preliminar y (test code = 06682-5) verifi ed result was Culture In Progress [...] CDT Lab Interpretation Normal (test code = 70250-9) [facility] [id number] 19:38:57 FINDINGS/IMPRESSION: There are 2 left-sided chest [...] Dr. Mathieu Chapa. EXAM: XR CHEST 1 HISTORY: ?50 yearsyear-old Male left pleural effusion [...] 2:35 PM on 04/17/[address] Mathieu Chapa.[facility] District[facility] Pleural [id number] 17:29:00 Test Item Value Reference Range Interpretation Comments Case Report (test code Non-Gynecologic = 7504682726) Cytology ?Case: [id number] ?Authorizing Provider: ?Vance Stafford MD ?Collected: ? 04/16/2020 1650 ?Ordering Location: ? ? Surgery ([facility]) ? Received: ?04/16/2020 1809 ?Pathologist: ? Alice Aj MD ? Specimen: ? ?PLEURAL, LEFT, EFFUSION ? Final Diagnosis (test e0ozhSRaHDRrw5xvUEHdeK code = 0069076425) FuZzEwMzNcZnRuYmpcdWMx JMpzgrDrLYcby3RcI8ViSq AwMFxhbnNpXGRlZmxhbmcx MLVfSZV9vbMxZJNwVTnqNU BdDHevMr8hfJPbkBzvYgGs OWUef7uswzMIxnraiQy6q0 jnGPLoMrY6mOSzFEitE8hb zgLytZPnZQYqRMw6gV50AJ VplR5ftGKuZLcuqkXoBiT2 UUuzBAYkAoS7UZBpbGUsYC KqA3duVSWdULiqZEOyOXlk tZQcMUT7fEsou5R4dWQxtO VilPyrTlAkQzFnAQSMy0Wq FFb7jDpyM5RdMDXbLuJ9kT QgUGFyYWdyYXBoIEZvbnQ7 rA74WYpjckO3aIDbb4Qps6 7cf284sL5puHKrYPL6MVBi YFWkbXVnGIVrHXQ1KFHmfD GkJ4ipSLsbQU3uvfjzJDI2 MFxtYXJndDcyMFxtYXJnYj NvyQXyMBNqgLnnRFlfy545 SVB5YfTwTF8hK4Wzh3G0yS 9maXRcZGVmdGFiNzIwXGZv bj8kbXSiNCpcx5TvMEG8pt S4hGVtlMWrWIDyOH95Wwvq p0RsTlvpBAM2RRPpdeLdb1 Dar6gtEwLtjuUgW8faD4Of ZHJoZWFkXHBnYnJkcmZvb3 Mdi1DvjADudLv2u6qpERMy GDRfoWffk7jqXWI7VYGoG4 M6pUIex9arVFpeUTSobVT1 paOxWLDeeZMcM5WatI4sXP fwNN8zbke6i0vhQlPlTV1i drxge3agJAukYAImGEA2Un AyJZQmy6UytfllPqYnd0Vm yRHrLUtvV53af016YVOitn XdM8ihqBLqzqjdxMSeeblr OEeebeZ2NGIfstHrqGjtgU 2fNxFoYlIgPWsbXW5dWHRg N4muhSTvFUIfWVIcN7rtZs KvrL8nlAsrAIldDaUbYfVe MFxiIEEuICBQTEVVUkEsIE oLOlV8EDLCW9HKW8AARMST SVMgRkxVSURccGFyICAgIC OqHE8xFU4XVORCHUEFSQ9V IDSQJgWEP43SInOUDVaHUV 0JNXMPP4MCYQdPJ7giESTs ICAgICAgLSBORUdBVElWRS BVW9ApXUQKMNlSSY0DQOOG TExTXHBsYWluXGYxXGZzMj BcbGFuZzEwMzNcaGljaFxm YJtqTcFrBIYnMMyoV6uqLp DxThAxPZExUKDEGPRLU65B LB7UQBgwJRO2a3temYOwRM GznHHgNlIbAITmJDPwc1ly ZGVmbGFuZzEwMzNcZnRuYm tuoYMiHPVbWiZer8vmo114 wHOks0uiVTCcUhG7uLVsZI JgqJacizo2iKykEcKkJLNo e1lymvZmFtHrOIFgNIOcCU QyzPJqR241IWIzXCrbi1rz x0YoIZYwyMBsx2C2XHLZJI gzAiTiI675x2zqz3habpXu jBH4ETAlTPW6XXjbkfPwxm T5IIsnlOBfKtZ4JRkdnhLg LGhspoVfqbWiVum5GTYqF6 23QNC6uEwhb2qcMGZ7BCSk BDZsBzmhMm6jiYYhE818ZK VbNQAMGNWyuMg5PBByleMk hmDqrEKTq981W908x4owHM EsexYceYyUzizar0icU698 XHBhcGVydzEyMjQwXHBhcG FxdQO9HNBhCX3licsePIfl WYvwHCFzlcT6XAVspSHzB7 UaAANkQX9zzgffYDE9MBsa TCPzNKJ9QvIsJXLsp6Iqcz c2KnGwdg7vmt17OED0h9Ck aAcmMHH3KFK0AxMzXo3olS GkFOFrAY6pVeEjiOMkBUXy vp77vEhdNUdpzdOgoN5aPf WsGAOyjJFeOYTwAW0auQUx OPZsdC7kewnlXBTkAbMmky dyBPFozEhnqlTuFx3oaOas XQN3FLdjD9guiO0zQeH1HB jlA3oopI2xABq4FLstlNU2 TKSohV1cPG3ijreyd4nnUW weGSmyLPRuvvG8pyM9TNXm aKXjG2SniH7dAKQlVE4kpv mvq0raKGL5LPygGUElVLV7 NnPbZMHfr8Pesla4YuMvc2 WiqIVcMHjpS90jm688PPLq idInM6tqpFXumkaawNXknk jvBEazwyN0YTEeGHVmFErh XGYxXGZzMjBcbGFuZzEwMz NcaGljaFxmMVxkYmNoXGYx HBzsH4rgBoVwV2VzKGUnEm KoxKBlXXsfdWP6CLPuELXs s48tmYk7BASxlhbnt9CtOO EnaNBmwXVivZ2yhnNik7nw JGTpTUJgMEUjS1ZvQFY8mW VzPGMnlEPevLI1RX4fzeIb LX3lXUVlWvlyrfKfpJYvjj DoUBMzDBcho6seOK0aGHDf wAiwyP1bxAP1NNCfl2kqdL SxjABwy5ena1GthlJsIYot DQBvKIlqKWJkTKNrHR5gXV DgtIJctfGcs7Z9JndnhWSe npjpJtigzhG9YAzsaijfXD YtULgnV1uyPkRnDYNmjZbz Mknub5NjVJGrVYAnSegniR FyfX0= Final Diagnosis Comment p3maoLOpBIWbpMXvRnZzUY (test code = YjJBVjv8bgCRNfjJEoQtHr [id number]) MzNcZnRuYmpcdWMxXGRlZm Dfy4abx855bBYrk9sdQMNu XwR5tOUgZDLdzRJxW246j3 hel5zajsGxaHX9SNKzAFG9 UIpbapOqkdH0CWuniUCkDj D5ZLoykjCeGFehktHwbbZd Ilm8RTXbM139OZS9aUhse8 laPPP8CMAgKKMwErWdPt8r gRWiR980DDWuIKMPSVSjtW w8ZMUnzaIpxgFrkUXLg528 E428h2tsSDRihfIoeKxYjy vwb0ugW106QQBgsVAwqnJl UaSmSGEldLNpeVS3TQKtZF 0gbkqgBFX1QTjjHVDqptMr AOTwaFQnF0X6VuWhtRDwC5 WvPVlxGIQeatj5UsEwFm1e uDOrkCA3SVtbe3ivs5dgvA BjAvr2GBCnWyZsEfqcHVni d3Tuz0pfFOWgsx4rSVR8uH NnqBlzc6L4bHWoRRBjfJJj pbToCGXvJgG7LBahGE7het 24ZZLaNER7wf0gkXIleIdd hqHmwLEbMZjcG4OeDXSsp4 46VLYhL3PjDEEwq3V0reYb ZbHtZHCgzKZ5fwR9HYJbLX v1fXNfnzG1szPoeRGgP2gs sX8oJBnsRN4coypip0omWG Q5HGgmRQIowPT3fjwkMFlh YQKoQiW1kvEabRWjFVOqbQ gnTGycz428YQA5FhObMVRs p0ChA8KmuGfkL97zkPdvH9 7gMGLucYvuxH2wwIxfaN8u ZjBcZnMyNFxxbFxwbGFpbl xmMFxmczIwXGxhbmcxMDMz RQxyJ9pfYtKuACHhkJreHT aie3XwATRpZLRtEbQlN15i PHCgr9ybx0KraGi8LKZqwR 6edJHfhRR0pP7fDUsxrTdz oTYdMU6jyI7zmpMugHFuWD F5za5ncDpgjvlrMwR4SHr0 uVMwl7T6iAQaDNIqVHYqvA BbxO0rGMGgv82jfJB1GE64 LXlnzEgiOK4paNLpRB4gVq 0lnKQoxBmeYD01PXGxtJny VNkcDX45jKHeNSLkGUyyYC J9 Clinical Information Clinical Hx: ?Total (test code = colectomy complicated [id number]) . Requested per consulting surgery team. Gross Description (test i1pttDExFVIulWPwYeFlCE code = 7854933764) HsKYHzl4usJUDucPMoSsRk MzNcZnRuYmpcdWMxXGRlZm Hmu8zjt054zBGhm1afLKHw CvS3fDBlMVTdxUTuJ790d1 aht9imvcQpiCC5QYRmFSN3 CLoeenNfcmK9RLmnkMHtPs R7CSalhlMeJAeqfvKzzcZy Msm3KKZxK395DEJ5bRbpz3 usADG9HEMaGBVwSbUyMg1r wPDzS752HWUwIFHQLUPmeM i9XTXnzyGpqvBhiBMTb671 I881a4ruGBTnczHiqWsHep hza2eiE564XYIunZHnrjEw DpLwPHRkdTMzpOB9XDDvMG 7otbfiRKQ1XGqzIIAvyrCy FLLvxULrT8P2TyJghDTbQ3 EfZMekLPSqket0UcNgBe9y sLOrwEK9ZRrkt9dwr3rgrX QgCbh9SXFeXxIbRliwLPfu t0Qrm2vxYZQhxt6rHGX7bL PptHplk7S0sDDbVFNxkVOk qwMoIYEbNjP7NWdpWB3szx 51MNKmMGF9ju7zaJXpuXns htMaiIZqJUhaS2VzVHPtb3 55QPEcR4ShNJLsp3V2ikCp YyNrUWPtcYV4guO4SIFnBZ o8qBRhinR1cuXynFReA8dw tC7eUJztCE4mqsijy0mlSI K3RNekAKDzaCR3sdebXYtw NVPyCoP3qzFlxPOhCPVegZ aqNWuwd371TCB3VaZlYSJj h9NrK7AetVacK31cbTdkY3 1tCSBgmVszeG6idYzuqS3m ZjBcZnMyNFxxbFxwbGFpbl xmMFxmczIwXGxhbmcxMDMz LDxeC2tsHpCfQJUgaSioAD cpr7FmGSNbZTUtVfGzXGUj MGSVLVWWHtTiMXeXEcJ7PI JZL7AZT0HBQXUFZVDfUxxG CNUwoEVoKSYcR4KshbEoQW EyOIEhUTxrKPJiJQAcD1Df d0YibPZlbT10HKFdbJoyDV xwYXIgUHJlcGFyZWQgMiBz wXqbJAXbAWVoQEIdKK2yN4 1kOA37JCF3zK9dsRgaFJTz uoMgZPCEf71phs85l0n7OL H7cA0vuPypKEQmYSXkmeN9 cW3cQNcdCDS2 Embedded Images (test code = 8258827606) [facility] [id number] 13:05:21EXAM: XR CHEST 1 VW HISTORY: post [...] is little different than noted yesterday. ? [facility], Radiant Results Inft User - 04/17/2020 8:06 [...] the chest is little different than noted yesterday.[facility] WITH [id number] 11:18:00 Test Item Value Reference Range Interpretation Comments WBC (test code = See_Comment H [Automated 8890-2) message] The system which generated this result transmit dain reference range : 4.20 - 10.70 10*3/?L. The reference range was not used to interpret this result as normal/abnormal . RBC (test code = See_Comment L [Automated 229-8) message] The system which generated this result [...] RDW-SD (test code = 47.8 fL 38.5-51.6 65781-5) RDW-CV (test code = 14.7 % 12.1-15.4 788-0) PLT (test code = See_Comment HH [Automated 777-3) message] The system which generated this result transmit dain reference range : 150 - 328 10*3/ ?L. The reference range was not u sed to interpret th is result as normal/abnormal . MPV (test code = 9.9 fL 9.8-13 05533-8) NRBC/100 WBC (test See_Comment [Automat ed code = 3906677785) message] The system which generated this result transmit dain reference range : 0.0 - 10.0 /100 WBCs. The reference range was not used to interpret this result as normal/abnormal . NRBC x10^3 (test code <0.01 See_Comment [Auto mated = 9108251092) message] The system which generated this result transmit dain reference range : 10*3/?L. The reference range was not used to interpret this result as normal/abnormal . GRAN MAT (NEUT) % 81.7 % (test code = 770-8) IMM GRAN % (test code 1.10 % = 1547213837) LYMPH % (test code = 9.1 % 736-9) MONO % (test code = 7.3 % 5905-5) EOS % (test code = 0.5 % 713-8) BASO % (test code = 0.3 % 706-2) GRAN MAT x10^3(ANC) 10.91 10*3/uL 1.99-6.95 H (test code = 1162076132) IMM GRAN x10^3 (test 0.15 10*3/uL 0-0.06 H code = 9010129005) LYMPH x10^3 (test code 1.21 10*3/uL 1.09-3.23 = 731-0) MONO x10^3 (test code 0.97 10*3/uL 0.36-1.02 = 742-7) EOS x10^3 (test code = 0.07 10*3/uL 0.06-0.53 711-2) BASO x10^3 (test code 0.04 10*3/uL 0.01-0.09 = 704-7) Lab Interpretation Abnormal (test code = 11043-4) [facility]NA, K, CL, CO2, GLUCOSE, BUN, CREATININE, CA)2020-04-17 10:49:00 Test Item Value Reference Range Interpretation Comments NA (test code = 134 mmol/L 135-145 L 4987905602) K (test code = 4.2 mmol/L 3.5-5 6273318142) CL (test code = 103 mmol/L 98-108 4752233512) CO2 TOTAL (test code = 26 mmol/L 23-31 7579435339) AGAP (test code = 2-16 2923697848) BUN (test code = 12 mg/dL 7-23 1037228978) GLUCOSE (test code = 107 mg/dL 70-110 1252785531) CREATININE (test code = 0.74 mg/dL 0.6-1.25 2083132434) CALCIUM (test code = 7.8 mg/dL 8.6-10.6 L 5409395889) eGFR Calculation mL/min/1.73m2 (Non-) (test code = 9828469873) eGFR Calculation mL/min/1.73m2 () (test code = 5009672108) GILBERTO (test code = GILBERTO) Association of [...] tests). Lab Interpretation Abnormal (test code = 45610-0) [facility] 10:49:00 Test Item Value Reference Range Interpretation Comments MAGNESIUM (test code = 3395383172) 2.3 mg/dL 1.7-2.4 Lab Interpretation (test code = Normal 46930-7) [facility]2020-08-25 10:49:00 Test Item Value Reference Range Interpretation Comments PHOSPHORUS (test code = 1648485538) 3.8 mg/dL 2.5-5 Lab Interpretation (test code = Normal 02930-0) [facility] TOTAL BODY [id number] 00:37:00 Test Item Value Reference Range Interpretation Comments LDH BF (test code = 3707 U/L 8127864614) UNSPUN BODY FLUID Light Yellow COLOR (test code = 1636781723) UNSPUN BODY FLUID Clear CLARITY (test code = 5569952807) SPUN BODY FLUID Light Yellow COLOR (test code = 3801548078) SPUN BODY FLUID Clear CLARITY (test code = 8820089704) Sediment (test code The sediment volume is 0.1 = 9471501521) mLs of the total fluid volume of 3mLs and its color is white. GILBERTO (test code = Test developed and GILBERTO) characteristics determined by [facility] Laboratory Services. [facility] 1 [id number] 00:22:53 1. ?Left lower lung zone 2 [...] fortechnique. Bones: No acute osseous abnormalityis seen. [facility], Radiant Results Inft User - 04/16/2020 7:23 [...] compared to 817 with a possible small pneumothorax.[facility] FL[facility] DIRECT [id number] 00:10:00 Test Item Value Reference Range Interpretation Comments BF COLOR Light Yellow (test code = 4174900635) BF WBC Count See_Comment [Automated (test code = message] The sy stem [id number]) which generated this result transmitted reference range : /?L. The refere nce range was not u sed to interpret th is result as normal/abnormal . BF RBC Count <3000 See_Comment [Automated (test code = message] The sy stem 4007502701) which generated this result transmitted reference range : /?L. The refere nce range was not u sed to interpret th is result as normal/abnormal . GILBERTO (test The reference range code = GILBERTO) and other method performance specifications have not been established for this body fluid. ?The test results must be integrated into the clinical context for interpretation. [facility] MAN[facility] [id number] 00:10:00 Test Item Value Reference Range Interpretation Comments BF SEGS (test code = 6312714609) 78 % MACROPHAGE (test code = 1601183593) 22 % #CELS CNTD (test code = 6779134642) [facility] DistrictAmylase Body [id number] 00:03:00 Test Item Value Reference Range Interpretation Comments AMYLASE BF (test 313 U/L code = 4285827174) UNSPUN BODY FLUID Yellow COLOR (test code = 1381710076) UNSPUN BODY FLUID Clear CLARITY (test code = 1022699352) SPUN BODY FLUID Yellow COLOR (test code = 5510657305) SPUN BODY FLUID Clear CLARITY (test code = 7259480664) Sediment (test code The sediment volume is = 4511600963) <0.1 mLs of the total fluid volume of 1mL and its color is red. GILBERTO (test code = Test developed and GILBERTO) characteristics determined by [facility] Laboratory Services. [facility] DistrictGlucose Body [id number] 00:03:00 Test Item Value Reference Range Interpretation Comments GLUCOSE BF (test 57 mg/dL code = 6182992310) UNSPUN BODY FLUID Yellow COLOR (test code = 8235242145) UNSPUN BODY FLUID Clear CLARITY (test code = 5890028221) SPUN BODY FLUID Yellow COLOR (test code = 8368389130) SPUN BODY FLUID Clear CLARITY (test code = 1625146911) Sediment (test code The sediment volume is = 6549238995) <0.1 mLs of the total fluid volume of 1mL and its color is red. GILBERTO (test code = Test developed and GILBERTO) characteristics determined by [facility] Laboratory Services. [facility] DistrictTotal Protein Body [id number] 00:03:00 Test Item Value Reference Range Interpretation Comments T.PROT BF (test 3000.0 mg/dL code = 7681617716) UNSPUN BODY FLUID Yellow COLOR (test code = 8091973539) UNSPUN BODY FLUID Clear CLARITY (test code = 2861412591) SPUN BODY FLUID Yellow COLOR (test code = 5793491357) SPUN BODY FLUID Clear CLARITY (test code = 0532763718) Sediment (test code The sediment volume is = 5312388696) <0.1 mLs of the total fluid volume of 1mL and its color is red. GILBERTO (test code = Test developed and GILBERTO) characteristics determined by [facility] Laboratory Services. [facility] DistrictPH, Body [id number] 23:56:00 Test Item Value Reference Range Interpretation Comments PH BF (test code = 8591299751) UNSPUN BODY FLUID COLOR Light Yellow (test code = 9273019961) UNSPUN BODY FLUID Clear CLARITY (test code = 0421580783) SPUN BODY FLUID COLOR Light Yellow (test code = 1533810659) SPUN BODY FLUID CLARITY Clear (test code = 2904539188) Sediment (test code = The sediment volume is 0499027293) 0.1 mLs of the total fluid volume of 5.5mLs and its color is white/red. [facility] DistrictIR DRAINAGE BY CATHETER PERITONEAL OR [id number] 21:10:26 Successful placement of a 12 [place] drain in the left upper quadrantcollection. Successful placement of a 14 [place] drain in the midline air fluidcollection. Successful placement of a 10 [place] drain in the right lower quadrant [...] those actually performingthe procedure. Please refer to [facility] regarding sedation time. RADIATION DOSE: 1957 mGy - cm. TECHNIQUE: The risks, benefits and alternatives were discussed and informed consentwas obtained. Prior to beginning the procedure, [place] Protocol was usedto confirm the patient's identity and planned procedure. Maximum sterilebarriers including cap, mask, hand hygiene, sterile gloves, sterile gown,large sterile drape and cutaneous antisepsis were used. The anteriorabdominal wall was sterilely prepped, and draped. The skinoverlying the left upper, right upper, andright lower quadrants wasinfiltrated with lidocaine 2%. The targeted collection in the left upper quadrant was then accessed with n46-uzvst quadrant needle using CT guidance. A 0.035 Amplatz wire wasadvanced through the coaxial needle. The tract was serially dilated to 12French. A pigtail 12 [place] catheter was placed in the left upper quadrantcollection. Approximately, 210 cc of purulent fluid was removed. The air-fluid collection in the mid abdomen was accessed through the rightupper quadrant. An 18 [place] pigtail catheter was placed in this collectionunder CT guidance in a similar fashion to thedrain and left upperquadrant. Approximately, 1250 cc of purulent material were removed. The fluid collection in the right lower quadrant was also accessed in asimilar fashion. A 10 [place] pigtail catheter was placed in this [...] at the time of the procedure. [facility], Radiant Results Inft User - 04/16/2020 4:11 PM CDTEXAMINATION: PERCUTANEOUS ASPIRATIONHISTORY: 50-year-old male with postoperative abdominal fluid collections SEDATION: Moderate sedation was administered under the supervision of atrained nurse specialist who was independent from those actually performingthe procedure. Please refer to [facility] regarding sedation time.RADIATION DOSE: 1957 mGy - cm.TECHNIQUE: The risks, benefits and alternatives were d iscussed and informed consentwas obtained. Prior to beginning the procedure, [place] Protocol was usedto confirm the patient's identity [...] serially dilated to 12French. A pigtail 12 [place] catheter was placed in the left upper quadrantcollection. Approximately, 210 cc of purulent fluid was removed.The air-fluid collection in the mid abdomen was accessed through the rightupper quadrant. An 18 [place] pigtail catheter was placed in this collectionunder CT guidance in a similar fa shion to the drain and left upperquadrant. Approximately, 1250 cc of purulent material were removed.The fluid collection in the right lower quadrant was also accessed in asimilar fashion. A 10 [place] pigtail catheter was placed in this [...] left upper quadrantcollection.Successful placement of a 14 [place] drain in the midline air fluidcollection.Successful placement of a 10 [place] drain in the right lower quadrant fluidcollection.Preliminary Report Dictated by Resident: Hayden Murphy the attending radiologist I was present in the room for the entirety ofthe procedure.I, Neris Grier MD., have reviewed this study and agree with the abovereport.[facility] DistrictB[facility] FLUID CULTURE(AEROBIC/ANAEROBIC)2020-04-16 19:45:00 Test Item Value Reference Range Interpretation Comments BODY FLUID CULT 2+ Bacteroides fragillis (test code = 611-4) Gram stain (test Occasional (Rare) code = 664-3) Mononuclear cells [facility] DistrictPROTHROMBIN TIME / [id number] 16:38:00 Test Item Value Reference Range Interpretation Comments PROTIME PATIENT (test See_Comment H [Auto mated message] code = 5964-2) The system [employer] generated this result transmitted ref erence range: 10.1 - 1 2.6 Seconds. The reference range was not used to int erpret this result as normal/abnormal . INR (test code = 6301-6) Nor mal INR <1.1; Warfarin Therap eutic range 2.0 to 3. 0 or 2.5 to 3.5, dep ending upon the indica tions. Lab Interpretation (test Abnormal code = 77498-9) [facility] DistrictCT ABDOMEN PELVIS W [id number] 13:40:08Impression: 1. ?Interval placement of 4 percutaneous [...] changes and no suspicious focal lesions. [facility], Radiant Results Inft User - [...] and oral contrast seen up to the ostomy.[facility] METABOLIC PANEL (NA, K, CL, CO2, GLUCOSE, BUN, CREATININE, CA)2020-04-16 10:51:00 Test Item Value Reference Range Interpretation Comments NA (test code = 132 mmol/L 135-145 L 3761202304) K (test code = 4.1 mmol/L 3.5-5 2904169147) CL (test code = 103 mmol/L 98-108 6662304457) CO2 TOTAL (test code = 24 mmol/L 23-31 1237677729) AGAP (test code = 2-16 7151303380) BUN (test code = 13 mg/dL 7-23 2937860734) GLUCOSE (test code = 132 mg/dL 70-110 H 7261091225) CREATININE (test code = 0.77 mg/dL 0.6-1.25 0332554321) CALCIUM (test code = 7.4 mg/dL 8.6-10.6 L 6381601168) eGFR Calculation mL/min/1.73m2 (Non-) (test code = 2887006334) eGFR Calculation mL/min/1.73m2 () (test code = 6210310869) GILBERTO (test code = GILBERTO) Association of [...] tests). Lab Interpretation Abnormal (test code = 99894-1) [facility] DistrictMAGNESIUM2020-08-24 10:51:00 Test Item Value Reference Range Interpretation Comments MAGNESIUM (test code = 1792042951) 2.2 mg/dL 1.7-2.4 Lab Interpretation (test code = Normal 90319-1) [facility] DistrictPHOSPHORUS2020-08-24 10:51:00 Test Item Value Reference Range Interpretation Comments PHOSPHORUS (test code = 8331661076) 3.1 mg/dL 2.5-5 Lab Interpretation (test code = Normal 95985-7) [facility] DistrictCB WITH [id number] 10:37:00 Test Item Value Reference Range Interpretation Comments WBC (test code = See_Comment H [Automated 9590-2) message] The system which generated this result transmit dain reference range : 4.20 - 10.70 10*3/?L. The reference range was not used to interpret this result as normal/abnormal . RBC (test code = See_Comment L [Automated 558-8) message] The system which generated this result [...] RDW-SD (test code = 47.4 fL 38.5-51.6 32020-2) RDW-CV (test code = 14.7 % 12.1-15.4 788-0) PLT (test code = See_Comment H [Automated 777-3) message] The system which generated this result transmit dain reference range : 150 - 328 10*3/ ?L. The reference range was not u sed to interpret th is result as normal/abnormal . MPV (test code = 10.1 fL 9.8-13 40216-4) NRBC/100 WBC (test See_Comment [Automat ed code = 4640781350) message] The system which generated this result transmit dain reference range : 0.0 - 10.0 /100 WBCs. The reference range was not used to interpret this result as normal/abnormal . NRBC x10^3 (test code <0.01 See_Comment [Auto mated = 7693904374) message] The system which generated this result transmit dain reference range : 10*3/?L. The reference range was not used to interpret this result as normal/abnormal . GRAN MAT (NEUT) % 83.0 % (test code = 770-8) IMM GRAN % (test code 1.50 % = 9711827846) LYMPH % (test code = 7.6 % 736-9) MONO % (test code = 7.3 % 5905-5) EOS % (test code = 0.3 % 713-8) BASO % (test code = 0.3 % 706-2) GRAN MAT x10^3(ANC) 11.53 10*3/uL 1.99-6.95 H (test code = 7189444450) IMM GRAN x10^3 (test 0.21 10*3/uL 0-0.06 H code = 4997818549) LYMPH x10^3 (test code 1.05 10*3/uL 1.09-3.23 L = 731-0) MONO x10^3 (test code 1.01 10*3/uL 0.36-1.02 = 742-7) EOS x10^3 (test code = 0.04 10*3/uL 0.06-0.53 L 711-2) BASO x10^3 (test code 0.04 10*3/uL 0.01-0.09 = 704-7) Lab Interpretation Abnormal (test code = 86597-6) [facility] METABOLIC PANEL (NA, K, CL, CO2, GLUCOSE, BUN, CREATININE, CA)2020-04-15 11:01:00 Test Item Value Reference Range Interpretation Comments NA (test code = 132 mmol/L 135-145 L 3707896327) K (test code = 4.7 mmol/L 3.5-5 3529530401) CL (test code = 103 mmol/L 98-108 7326167987) CO2 TOTAL (test code = 22 mmol/L 23-31 L 2103630969) AGAP (test code = 2-16 0670704627) BUN (test code = 14 mg/dL 7-23 9115348478) GLUCOSE (test code = 114 mg/dL 70-110 H 7388977380) CREATININE (test code = 0.74 mg/dL 0.6-1.25 9306573720) CALCIUM (test code = 7.9 mg/dL 8.6-10.6 L 0738372365) eGFR Calculation mL/min/1.73m2 (Non-) (test code = 2724296222) eGFR Calculation mL/min/1.73m2 () (test code = 9934748710) GILBERTO (test code = GILBERTO) Association of [...] tests). Lab Interpretation Abnormal (test code = 34729-8) [facility]MAG[facility]IUM2020-08-23 11:01:00 Test Item Value Reference Range Interpretation Comments MAGNESIUM (test code = 0541019533) 2.1 mg/dL 1.7-2.4 Lab Interpretation (test code = Normal 57523-4) [facility] DistrictPHOSPHORUS2020-08-23 11:01:00 Test Item Value Reference Range Interpretation Comments PHOSPHORUS (test code = 5336246479) 3.4 mg/dL 2.5-5 Lab Interpretation (test code = Normal 92019-2) [facility] District[facility] WITH [id number] 10:46:00 Test Item Value Reference Range Interpretation Comments WBC (test code = See_Comment H [Automated 5090-2) message] The system which generated this result transmit dain reference range : 4.20 - 10.70 10*3/?L. The reference range was not used to interpret this result as normal/abnormal . RBC (test code = See_Comment L [Automated 219-8) message] The system which generated this result [...] RDW-SD (test code = 47.7 fL 38.5-51.6 92249-0) RDW-CV (test code = 15.0 % 12.1-15.4 788-0) PLT (test code = See_Comment H [Automated 777-3) message] The system which generated this result transmit dain reference range : 150 - 328 10*3/ ?L. The reference range was not u sed to interpret th is result as normal/abnormal . MPV (test code = 10.4 fL 9.8-13 71575-4) NRBC/100 WBC (test See_Comment [Automat ed code = 4374851712) message] The system which generated this result transmit dain reference range : 0.0 - 10.0 /100 WBCs. The reference range was not used to interpret this result as normal/abnormal . NRBC x10^3 (test code <0.01 See_Comment [Auto mated = 5884762033) message] The system which generated this result transmit dain reference range : 10*3/?L. The reference range was not used to interpret this result as normal/abnormal . GRAN MAT (NEUT) % 85.0 % (test code = 770-8) IMM GRAN % (test code 1.10 % = 9911118760) LYMPH % (test code = 7.2 % 736-9) MONO % (test code = 6.4 % 5905-5) EOS % (test code = 0.1 % 713-8) BASO % (test code = 0.2 % 706-2) GRAN MAT x10^3(ANC) 14.87 10*3/uL 1.99-6.95 H (test code = 5557771910) IMM GRAN x10^3 (test 0.20 10*3/uL 0-0.06 H code = 6589071980) LYMPH x10^3 (test code 1.25 10*3/uL 1.09-3.23 = 731-0) MONO x10^3 (test code 1.11 10*3/uL 0.36-1.02 H = 742-7) EOS x10^3 (test code = <0.03 0.06-0.53 L 711-2) BASO x10^3 (test code 0.03 10*3/uL 0.01-0.09 = 704-7) Lab Interpretation Abnormal (test code = 81568-8) [facility] METABOLIC PANEL (NA, K, CL, CO2, GLUCOSE, BUN, CREATININE, CA)2020-04-14 12:15:00 Test Item Value Reference Range Interpretation Comments NA (test code = 134 mmol/L 135-145 L 1792301990) K (test code = 4.9 mmol/L 3.5-5 3856933253) CL (test code = 105 mmol/L 98-108 5692719546) CO2 TOTAL (test code = 23 mmol/L 23-31 3387656493) AGAP (test code = 2-16 6543135165) BUN (test code = 16 mg/dL 7-23 7191217448) GLUCOSE (test code = 102 mg/dL 70-110 0491680111) CREATININE (test code = 0.82 mg/dL 0.6-1.25 5394324587) CALCIUM (test code = 7.9 mg/dL 8.6-10.6 L 5008051801) eGFR Calculation mL/min/1.73m2 (Non-) (test code = 4014129258) eGFR Calculation mL/min/1.73m2 () (test code = 7312535122) GILBERTO (test code = GILBERTO) Association of [...] tests). Lab Interpretation Abnormal (test code = 34373-2) [facility]2020-08-22 12:15:00 Test Item Value Reference Range Interpretation Comments MAGNESIUM (test code = 7110958332) 2.1 mg/dL 1.7-2.4 Lab Interpretation (test code = Normal 42910-9) [facility]PHOSPHORUS2020-08-22 12:15:00 Test Item Value Reference Range Interpretation Comments PHOSPHORUS (test code = 9568597060) 4.2 mg/dL 2.5-5 Lab Interpretation (test code = Normal 02961-4) [facility] WITH [id number] 11:49:00 Test Item Value Reference Range Interpretation Comments WBC (test code = See_Comment H [Automated 8890-2) message] The system which generated this result [...] RDW-SD (test code = 48.1 fL 38.5-51.6 03041-6) RDW-CV (test code = 15.1 % 12.1-15.4 788-0) PLT (test code = See_Comment H [Automated 777-3) message] The system which generated this result transmit dain reference range : 150 - 328 10*3/ ?L. The reference range was not u sed to interpret th is result as normal/abnormal . MPV (test code = 10.7 fL 9.8-13 25496-2) NRBC/100 WBC (test See_Comment [Automat ed code = 7664261037) message] The system which generated this result transmit dain reference range : 0.0 - 10.0 /100 WBCs. The reference range was not used to interpret this result as normal/abnormal . NRBC x10^3 (test code <0.01 See_Comment [Auto mated = 4538462054) message] The system which generated this result transmit dain reference range : 10*3/?L. The reference range was not used to interpret this result as normal/abnormal . GRAN MAT (NEUT) % 84.4 % (test code = 770-8) IMM GRAN % (test code 1.10 % = 8470231486) LYMPH % (test code = 7.4 % 736-9) MONO % (test code = 6.8 % 5905-5) EOS % (test code = 0.1 % 713-8) BASO % (test code = 0.2 % 706-2) GRAN MAT x10^3(ANC) 13.45 10*3/uL 1.99-6.95 H (test code = 4831357309) IMM GRAN x10^3 (test 0.18 10*3/uL 0-0.06 H code = 4917305400) LYMPH x10^3 (test code 1.18 10*3/uL 1.09-3.23 = 731-0) MONO x10^3 (test code 1.09 10*3/uL 0.36-1.02 H = 742-7) EOS x10^3 (test code = <0.03 0.06-0.53 L 711-2) BASO x10^3 (test code 0.03 10*3/uL 0.01-0.09 = 704-7) Lab Interpretation Abnormal (test code = 74961-3) [facility] TOTAL BODY [id number] 01:27:00 Test Item Value Reference Range Interpretation Comments LDH BF (test code = >6450 U/L 4650100856) UNSPUN BODY FLUID Yellow COLOR (test code = 8090277189) UNSPUN BODY FLUID Turbid CLARITY (test code = 0676003430) SPUN BODY FLUID Yellow COLOR (test code = 8219159790) SPUN BODY FLUID Clear CLARITY (test code = 9804484510) Sediment (test code The sediment volume is 0.1 = 0284712893) mLs of the total fluid volume of 5mLs and its color is Red/White. GILBERTO (test code = Test developed and GILBERTO) characteristics determined by [facility] Laboratory Services. [facility] METABOLIC PANEL (NA, K, CL, CO2, GLUCOSE, BUN, CREATININE, CA)2020-04-14 00:15:00 Test Item Value Reference Range Interpretation Comments NA (test code = 132 mmol/L 135-145 L 3469902234) K (test code = 5.3 mmol/L 3.5-5 H 4846640847) CL (test code = 105 mmol/L 98-108 9642807203) CO2 TOTAL (test code = 20 mmol/L 23-31 L 4882733446) AGAP (test code = 2-16 1083203638) BUN (test code = 14 mg/dL 7-23 2230610255) GLUCOSE (test code = 280 mg/dL 70-110 H 8142921067) CREATININE (test code = 0.75 mg/dL 0.6-1.25 4501506127) CALCIUM (test code = 7.4 mg/dL 8.6-10.6 L 7100638346) eGFR Calculation mL/min/1.73m2 (Non-) (test code = 7021534812) eGFR Calculation mL/min/1.73m2 () (test code = 9939923088) GILBERTO (test code = GILBERTO) Association of [...] tests). Lab Interpretation Abnormal (test code = 39948-7) [facility] WITHOUT [id number] 00:01:00 Test Item Value Reference Range Interpretation Comments WBC (test code = 6690-2) See_Comment H [A utomated message] The system [employer] generated this result transmit dain reference range : 4.20 - 10.70 10*3/?L. The reference range was not used to interpret this result as normal/abnormal . RBC (test code = 789-8) See_Comment L [Au tomated message] The system [employer] generated this result transmit dain reference range [...] See_Comment H [Au tomated message] The system [facility] [employer] generated this result transmit dain reference range : 150 - 328 10*3/?L. The reference range was not used to interpret this result as normal/abnormal . MPV (test code = 10.2 fL 9.8-13 25681-0) RDW-CV (test code = 15.3 % 12.1-15.4 788-0) RDW-SD (test code = 49.1 fL 38.5-51.6 53082-7) NRBC x10^3 (test code = <0.01 See_Comment [Au tomated message] 5107046793) The system [facility] [employer] generated this result transmit dain reference range : 10*3/?L. The reference range was not used to interpret this result as normal/abnormal . NRBC/100 WBC (test code See_Comment [Au tomated message] = 3517683960) The system [facility] generated this result transmit dain reference range : 0.0 - 10.0 /100 WBC s. The reference r meredith was not used to interpret this result as normal/abnormal . IPF % (test code = 9398001455) Lab Interpretation (test Abnormal code = 63134-0) [facility] FL[facility] DIRECT [id number] 23:40:00 Test Item Value Reference Range Interpretation Comments BF COLOR Yellow (test code = 0456903246) BF WBC Count See_Comment [Automated (test code = message] The sy stem 4809430691) which generated this result transmitted reference range : /?L. The refere nce range was not u sed to interpret th is result as normal/abnormal . BF RBC Count <3000 See_Comment [Automated (test code = message] The sy stem 1764656477) which generated this result transmitted reference range : /?L. The refere nce range was not u sed to interpret th is result as normal/abnormal . GILBERTO (test The reference range code = GILBERTO) and other method performance specifications have not been established for this body fluid. ?The test results must be integrated into the clinical context for interpretation. [facility] FLUID MANUAL [id number] 23:40:00 Test Item Value Reference Range Interpretation Comments BF SEGS (test code 99 % = 7196263054) BF LYMPHS (test 1 % code = 1750194961) #CELS CNTD (test code = 2739527784) GILBERTO (test code = Possible intracellular GILBERTO) bacteria. [facility] DistrictGLUCOSE BODY [id number] 23:17:00 Test Item Value Reference Range Interpretation Comments GLUCOSE BF (test <20 mg/dL code = 0282107532) UNSPUN BODY FLUID Yellow COLOR (test code = 0493517229) UNSPUN BODY FLUID Turbid CLARITY (test code = 9947081013) SPUN BODY FLUID Yellow COLOR (test code = 6129503616) SPUN BODY FLUID Clear CLARITY (test code = 6612875247) Sediment (test code The sediment volume is 0.1 = 4864192022) mLs of the total fluid volume of 5mLs and its color is Red/White. GILBERTO (test code = Test developed and GILBERTO) characteristics determined by [facility] Laboratory Services. [facility] DistrictT.PROTEIN BODY [id number] 22:52:00 Test Item Value Reference Range Interpretation Comments T.PROT BF (test 3000.0 mg/dL code = 9527964917) UNSPUN BODY FLUID Yellow COLOR (test code = 5072952595) UNSPUN BODY FLUID Turbid CLARITY (test code = 7048989258) SPUN BODY FLUID Yellow COLOR (test code = 1925706350) SPUN BODY FLUID Clear CLARITY (test code = 9804690095) Sediment (test code The sediment volume is 0.1 = 5740960279) mLs of the total fluid volume of 5mLs and its color is Red/White. GILBERTO (test code = Test developed and GILBERTO) characteristics determined by [facility] Laboratory Services. [facility] DistrictURINE [id number] 19:44:00 Test Item Value Reference Range Interpretation Comments URINE CULTURE (test No aerobic growth (< code = 630-4) 1000 CFU/mL) [facility] DistrictGRAM NEGATIVE BLOOD PATHOGENS DNA [id number] 13:23:00 Test Item Value Reference Range Interpretation Comments Enterobacter species Positive Negative A (test code = 04971-8) GILBERTO (test code = GILBERTO) See blood culture result for additional information. ?Testing included eight identification and six resistance marker targets. Lab Interpretation Abnormal (test code = 85884-3) [facility] WITH [id number] 12:43:00 Test Item Value Reference Range Interpretation [...] RDW-SD (test code = 49.8 fL 38.5-51.6 37081-6) RDW-CV (test code = 15.3 % 12.1-15.4 788-0) PLT (test code = See_Comment H [Automated 777-3) message] The system which generated this result transmit dain reference range : 150 - 328 10*3/ ?L. The reference range was not u sed to interpret th is result as normal/abnormal . MPV (test code = 10.7 fL 9.8-13 22742-5) NRBC/100 WBC (test See_Comment [Automat ed code = 1903550992) message] The system which generated this result transmit dain reference range : 0.0 - 10.0 /100 WBCs. The reference range was not used to interpret this result as normal/abnormal . NRBC x10^3 (test code <0.01 See_Comment [Auto mated = 5077168455) message] The system which generated this result transmit dain reference range : 10*3/?L. The reference range was not used to interpret this result as normal/abnormal . GRAN MAT (NEUT) % 81.3 % (test code = 770-8) IMM GRAN % (test code 1.40 % = 5523893268) LYMPH % (test code = 8.0 % 736-9) MONO % (test code = 8.9 % 5905-5) EOS % (test code = 0.2 % 713-8) BASO % (test code = 0.2 % 706-2) GRAN MAT x10^3(ANC) 10.74 10*3/uL 1.99-6.95 H (test code = 2108220171) IMM GRAN x10^3 (test 0.18 10*3/uL 0-0.06 H code = 0787636764) LYMPH x10^3 (test code 1.06 10*3/uL 1.09-3.23 L = 731-0) MONO x10^3 (test code 1.17 10*3/uL 0.36-1.02 H = 742-7) EOS x10^3 (test code = <0.03 0.06-0.53 L 711-2) BASO x10^3 (test code <0.03 0.01-0.09 = 704-7) Lab Interpretation Abnormal (test code = 84518-7) [facility] METABOLIC PANEL (NA, K, CL, CO2, GLUCOSE, BUN, CREATININE, CA)2020-04-13 11:57:00 Test Item Value Reference Range Interpretation Comments NA (test code = 134 mmol/L 135-145 L 3512790782) K (test code = 4.6 mmol/L 3.5-5 7712703323) CL (test code = 106 mmol/L 98-108 7384961414) CO2 TOTAL (test code = 23 mmol/L 23-31 7558521457) AGAP (test code = 2-16 5292602289) BUN (test code = 14 mg/dL 7-23 6954574673) GLUCOSE (test code = 106 mg/dL 70-110 9726787990) CREATININE (test code = 0.84 mg/dL 0.6-1.25 9453301499) CALCIUM (test code = 7.7 mg/dL 8.6-10.6 L 6529975555) eGFR Calculation mL/min/1.73m2 (Non-) (test code = 6692762535) eGFR Calculation mL/min/1.73m2 () (test code = 1820562958) GILBERTO (test code = GILBERTO) Association of [...] tests). Lab Interpretation Abnormal (test code = 81926-6) [facility] 11[facility]57:00 Test Item Value Reference Range Interpretation Comments MAGNESIUM (test code = 8664863442) 2.1 mg/dL 1.7-2.4 Lab Interpretation (test code = Normal 82635-3) [facility]21 11:57:00 Test Item Value Reference Range Interpretation Comments PHOSPHORUS (test code = 5785854243) 3.4 mg/dL 2.5-5 Lab Interpretation (test code = Normal 92791-4) [facility] P[facility] W [id number] 00:22:08 1. ?Multiple intraperitoneal collections as detailed [...] just inferior to the wound defect (3:93) [facility], Radiant Results Inft User- 04/12/2020 7:23 PM [...] this study and agree with the abovereport. [facility]20 23:20:00 Test Item Value Reference Range Interpretation Comments APPEARANCE (test code = Clear Clear 8029419947) COLOR (test code = Yellow Yellow 9312425550) PH (test code = 4.8-8.0 8432857156) SP GRAVITY (test code = 1.003-1.030 1041953953) GLU U QUAL (test code = Normal Normal 7660181841) BLOOD (test code = Negative Negative 1658510639) KETONES (test code = Negative Negative 9906383349) PROTEIN (test code = 30 mg/dL Negative A 2887-8) UROBILIN (test code = Normal Normal 8478800552) BILIRUBIN (test code = Negative Negative 3869436815) NITRITE (test code = Negative Negative 2303487806) LEUK ROGER (test code = Negative Negative 8951663638) RBC/HPF (test code = See_Comment [Autom ated message] 2091279388) The system [employer] generated this result transmitted ref erence range: 0 - 3 HP F. The reference range was not used to int erpret this result as normal/abnormal . WBC/HPF (test code = <1 See_Comment [Autom ated message] 6380647385) The system [employer] generated this result transmitted ref erence range: 0 - 5 HP F. The reference range was not used to int erpret this result as normal/abnormal . BACTERIA (test code = Negative Negative 1405432374) MUCOUS (test code = Slight Negative LPF A 4583891326) SQ EPITH (test code = See_Comment [Auto mated message] 8469946582) The system [employer] generated this result transmitted ref erence range: <=2 HPF. The reference range was not used to int erpret this result as normal/abnormal . Lab Interpretation (test Abnormal code = 89431-5) [facility] WITH [id number] 12:08:00 Test Item Value Reference Range Interpretation Comments WBC (test code = See_Comment H [Automated 3690-2) message] The sy stem which generated this [...] RDW-SD (test code = 48.9 fL 38.5-51.6 73294-4) RDW-CV (test code = 15.4 % 12.1-15.4 788-0) PLT (test code = See_Comment [Automated 777-3) message] The sy stem which generated this result transmitted reference range : 150 - 328 10*3/ ?L. The reference r meredith was not used to interpret this result as normal/abnormal . MPV (test code = 11.2 fL 9.8-13 14080-9) NRBC/100 WBC (test See_Comment [Automat ed code = 2314602749) message] The system which generated this result transmitted reference range : 0.0 - 10.0 /100 WBCs. The refer ence range was not u sed to interpret th is result as normal/abnormal . NRBC x10^3 (test code <0.01 See_Comment [Auto mated = 4167564217) message] The s ystem which generated this result transmitted reference range : 10*3/?L. The reference range was not used to interpret this result as normal/abnormal . GRAN MAT (NEUT) % 79.9 % (test code = 770-8) IMM GRAN % (test code 1.30 % = 1790394282) LYMPH % (test code = 7.4 % 736-9) MONO % (test code = 11.0 % 5905-5) EOS % (test code = 0.2 % 713-8) BASO % (test code = 0.2 % 706-2) GRAN MAT x10^3(ANC) 9.56 10*3/uL 1.99-6.95 H (test code = 1733700290) IMM GRAN x10^3 (test 0.15 10*3/uL 0-0.06 H code = 6011780919) LYMPH x10^3 (test code 0.89 10*3/uL 1.09-3.23 L = 731-0) MONO x10^3 (test code 1.32 10*3/uL 0.36-1.02 H = 742-7) EOS x10^3 (test code = <0.03 0.06-0.53 L 711-2) BASO x10^3 (test code <0.03 0.01-0.09 = 704-7) Lab Interpretation Abnormal (test code = 42289-8) [facility] (NA, K, CL, CO2, GLUCOSE, BUN, CREATININE, CA)2020-04-12 10:43:00 Test Item Value Reference Range Interpretation Comments NA (test code = 133 mmol/L 135-145 L 9184200050) K (test code = 4.3 mmol/L 3.5-5 6612304006) CL (test code = 104 mmol/L 98-108 7341195076) CO2 TOTAL (test code = 22 mmol/L 23-31 L 4236970082) AGAP (test code = 2-16 1488632077) BUN (test code = 20 mg/dL 7-23 4162841514) GLUCOSE (test code = 108 mg/dL 70-110 8827695919) CREATININE (test code = 0.77 mg/dL 0.6-1.25 8303356126) CALCIUM (test code = 8.1 mg/dL 8.6-10.6 L 5214469193) eGFR Calculation mL/min/1.73m2 (Non-) (test code = 4621705402) eGFR Calculation mL/min/1.73m2 () (test code = 3391168824) GILBERTO (test code = GILBERTO) Association of [...] tests). Lab Interpretation Abnormal (test code = 12869-4) [facility]20 10:43:00 Test Item Value Reference Range Interpretation Comments MAGNESIUM (test code = 9223241619) 2.0 mg/dL 1.7-2.4 Lab Interpretation (test code = Normal 79795-6) [facility]2020-08-20 10:43:00 Test Item Value Reference Range Interpretation Comments PHOSPHORUS (test code = 6744571524) 4.3 mg/dL 2.5-5 Lab Interpretation (test code = Normal 83964-7) [facility] [id number] 04:01:00 Test Item Value Reference Range Interpretation Comments Blood Culture-Aerobic No organisms No growth Previo us (test code = 49221-2) isolated prelim inary verified result was Culture [...] Culture-Anaerobic isolated preliminar y (test code = 24581-3) verifi ed result was Culture In Progress [...] CDT Lab Interpretation Normal (test code = 01960-6) [facility] [id number] 04:01:00 Test Item Value Reference Range Interpretation Comments Blood Culture-Aerobic No organisms No growth Previo us (test code = 43255-2) isolated prelim inary verified result was Culture [...] Culture-Anaerobic isolated preliminar y (test code = 41655-1) verifi ed result was Culture In Progress [...] CDT Lab Interpretation Normal (test code = 99805-3) [facility] (NA, K, CL, CO2, GLUCOSE, BUN, CREATININE, CA)2020-04-11 10:13:00 Test Item Value Reference Range Interpretation Comments NA (test code = 138 mmol/L 135-145 4692466349) K (test code = 3.9 mmol/L 3.5-5 2539701386) CL (test code = 106 mmol/L 98-108 0809650238) CO2 TOTAL (test code = 27 mmol/L 23-31 0822458463) AGAP (test code = 2-16 2172378529) BUN (test code = 24 mg/dL 7-23 H 0419628239) GLUCOSE (test code = 97 mg/dL 70-110 8431488365) CREATININE (test code = 0.63 mg/dL 0.6-1.25 4864866422) CALCIUM (test code = 8.1 mg/dL 8.6-10.6 L 8513163355) eGFR Calculation mL/min/1.73m2 (Non-) (test code = 8048341582) eGFR Calculation mL/min/1.73m2 () (test code = 2229209501) GILBERTO (test code = GILBERTO) Association of [...] tests). Lab Interpretation Abnormal (test code = 42365-7) [facility] Test Item Value Reference Range Interpretation Comments MAGNESIUM (test code = 2542229405) 1.8 mg/dL 1.7-2.4 Lab Interpretation (test code = Normal 22304-1) [facility]2020-08-19 10:13:00 Test Item Value Reference Range Interpretation Comments PHOSPHORUS (test code = 7626113279) 3.6 mg/dL 2.5-5 Lab Interpretation (test code = Normal 89701-1) [facility] WITH [id number] 10:06:00 Test Item Value Reference Range Interpretation [...] RDW-SD (test code = 48.9 fL 38.5-51.6 56204-3) RDW-CV (test code = 15.3 % 12.1-15.4 788-0) PLT (test code = See_Comment [Automated 777-3) message] The sy stem which generated this result transmitted reference range : 150 - 328 10*3/ ?L. The reference r meredith was not used to interpret this result as normal/abnormal . MPV (test code = 11.7 fL 9.8-13 24553-8) NRBC/100 WBC (test See_Comment [Automat ed code = 1837909717) message] The system which generated this result transmitted reference range : 0.0 - 10.0 /100 WBCs. The refer ence range was not u sed to interpret th is result as normal/abnormal . NRBC x10^3 (test code <0.01 See_Comment [Auto mated = 8769921911) message] The s ystem which generated this result transmitted reference range : 10*3/?L. The reference range was not used to interpret this result as normal/abnormal . GRAN MAT (NEUT) % 75.6 % (test code = 770-8) IMM GRAN % (test code 1.10 % = 2697864204) LYMPH % (test code = 10.5 % 736-9) MONO % (test code = 11.0 % 5905-5) EOS % (test code = 1.5 % 713-8) BASO % (test code = 0.3 % 706-2) GRAN MAT x10^3(ANC) 5.56 10*3/uL 1.99-6.95 (test code = 7622292816) IMM GRAN x10^3 (test 0.08 10*3/uL 0-0.06 H code = 7113783431) LYMPH x10^3 (test code 0.77 10*3/uL 1.09-3.23 L = 731-0) MONO x10^3 (test code 0.81 10*3/uL 0.36-1.02 = 742-7) EOS x10^3 (test code = 0.11 10*3/uL 0.06-0.53 711-2) BASO x10^3 (test code <0.03 0.01-0.09 = 704-7) TOXIC CHANGES (test Present A code = 803-7) Lab Interpretation Abnormal (test code = 21242-1) [facility] [id number] 22:00:00 Test Item Value Reference Range Interpretation Comments Case Report (test code Surgical Pathology ? ? = [id number]) ?Case: [id number] ? Authorizing Provider: ?Person, MD Juventino ? Collected: ? 04/06/2020 1012 ?Ordering Location: ? ? [facility] OR ? Received: ?04/06/2020 1146 ? Department ? Pathologist: ? Misael, Shaneka, ? Specimen: ? ?SOFT TISSUE, OTHER, ileo rectal anastamosis ? Final Diagnosis (test o5hloNEaYEBsz0plPSDbxX code = 9543696031) FuZzEwMzNcZnRuYmpcdWMx YOhxseTaQOtek8YgW2ReIt AwMFxhbnNpXGRlZmxhbmcx ANFlXYZ6kaCsWAMyVEhgSC ToAIpmZn5waMDggXrhYdDg BHOmv8fqjtTLynktcGj1r0 jlDUCtDyW4fKZmGGndW5ia ayNotPTcJSQgPKu5xC52LP TfaP4woIDzYUmvgrVgPfU9 SPisAOOjRmM0GKAerDCcDQ EgW4vmAECiUWzrRVKaFDrw aSUqZEV2jBgim8N1iKHgiY TboXvsSzQjSsLvPMIEa0Hj HBo6cMprX5XaCDCeJeC5rH QgUGFyYWdyYXBoIEZvbnQ7 bP83RUrenjC1hJTap9Qqq5 0if837cI0tsXHcFWS4DWBh UZXqsVFpQFQqGYE9VAVioT TrL7kiAJfsFH7zjsrjKWO1 MFxtYXJndDcyMFxtYXJnYj EevOVmMTEeeFboUVzjo153 CVB5JvMeLW2xW8Wsr9O4uM 9maXRcZGVmdGFiNzIwXGZv sq2uhFMcKUyzv6BiNJB2kf A7bRZwgAAaEUBhZT84Seap j9GzJowfVXI3VRXcyhSdi0 Mzz5wyFzCszsUnQ2vcT7Pg ZHJoZWFkXHBnYnJkcmZvb3 Cpu1XwuAWxyRe2f5wrXREo JOTghZrqm6nmVYQ9YWSaX7 P4sYCvx2erZQimYJXnnUO0 acEgFSJgtEXeH8HpuA3wMJ rfZQ7lvwc9y0qnTxNdNN8n gjsmq5ilRSooWMBzYFE1Mb BfYKMph2YwxqisYfIrh7Jp kQVeLLbsN75yt296FXFwtd NjC7smtRCdhcqxqVPluhvt LBuanhZ2FGScZYVtOGdfTY YxXGZzMjBcbGFuZzEwMzNc aGljaFxmMVxkYmNoXGYxXG blR9oaAqYtDtJbGMezOUUr AK3rO53TS22bXUgPRA6rSs QXMLIXRZNPRILFX66KD0pC MKEVOHSkZVVOV21WBlFWCJ XUWZFLY2LTQ058ZWMzrhHz PBPjPC8rKbHZPNONMYUDKC RABTSFLEAHZPPQCIHiG8aK OVMSIeQIY31XYlAVGKmMHk cRAX4QCMhBJuozFBlYUBZY FKkNFnqsM5SIS1UYBVpOUQ FORFxwYXIgICAgICAgICBQ DQXORB7MOSZYY5uhXCUpFA VmVKUfLUXHU7VTQFcPIeYC IAWHXC3BFIHXUWYVGEBRHS VccGFyXHBhclxwbGFpblxm MVxmczIyXGxhbmcxMDMzXG noH0haFxOvLHIewSmtCPgk n5HjYVNaCLTlUfkgxvApXU DhB1qpsSeqHVgbXZS2YO8l PJ8NZ8vNVQV7VzO8ZlRxFe BgCLK0KcFsHG1zpRuslE1g NfOwZvRnBHybOL9gQTNnH6 cshQKcFQJmEPJqS7vdCbKw vG2paQtmHFjdmsYuFSPqgJ DfWJBvbe86LMR3TqVjd9H8 AADyWsHjBNVhYX2lrStdTL EiNV7xZWGcO8bspJ4lcmm5 FlGbSHDcEbO0FDMdvaI2Ak r1QWOwCFwjl4jnf5VqA4Sv qWRbcLv8t4xdNCMuLjE2aL HlAYmcH4utxuIbpMCnBOBi GWf4oLifPnFjEDPsn1nmle BcZmNoYXJzZXQwIENhbGli gsc6rL71HCJlrI3fsLUmRI eejuPqTwR2CZjlSWLsUcE9 ZRVimVXyYPOvA2zcDUBgWG uaWZUnLIdxjPMsBLW2nVxf r2W4nCUzoPVpeEjhRzZtOe ZrAKJHw2BuZFf8fDzmB4Av KMEgQrB5wMSsAWXmLDbmBL AoCOLgiwZ5nD80SUpnzkV9 zDWqt4Kce50wr014hZ6ydR XcDNS4LHMbPSNlyXVxCPOw IMI0YDKouBZmP3gmJADeLO 1nimxhGHrjXMavDWZrqPO4 OBNkjSIpN3DiIQIvOPeiGH Xjiec9ImWwQf5thIRyeNpj NAvsd1riu6kteONpHxc3UC FbIfZbMyohIBkjo9Qcg7xp NCMqig0fUGK5aRMjpMbjz1 Q6gJAzNWRxoODaedElAAFh NcR7DVfbXW3pcd33BXXmJR Z9dl3cdDGgqOcnqsFmfHIh DGpzI3HeLBNxu493AARmH4 EyUZBnj9X7ztDmLdPyOVZf yPX3rtQ2VKShFJa0aQUeah Q5wsKieYStY8hmeJ1hYWXu LA7gunxgm8cuTDumCBfuXZ AhbHB3upO8UCDvvVWiK5Lt kA9kAHVnUMltYJTrzjl2Yf UaIb7vjWAfdIakAAuhRkyq YWdlXHBnbmNvbnRccGduZG VjXHBsYWluXHBsYWluXGYw RYOvQkKlrRjrdVkhxN1qNb FsEiGmNLrkAW8bWGZdF3oz iDUuRJMnBORxT6yhEhGppR 9jaFxmMVxjZjJcZnMyMFxw YXIgSSBoYXZlIHBlcnNvbm IwqLxbkuD9bCI6RSMuHMxp NOJxSHVjvFTowh4uiDhdNO GhZD1sFJGqroKeKTgfsLjo GErfQYC6OVGmpKSehSXefX FkZSBieSByZXNpZGVudHMs OQUgaCyvt8Piz6SkdIE2sT 4bz1cbe9GnZCOjjFM2EE43 cdN0lM6gMHKqIF9gALPtVE 2ypNZtnSDdPMVzx29xdBcq cyByZXBvcnQuXHBsYWluXG YyXGZzMjhcbGFuZzEwMzNc aGljaFxmMlxkYmNoXGYyXG utD8atCbMzAcHbMJclFVD5 fQ== Clinical Information Abdominal distention (test code = [R14.0] 7780895021) Gross Description (test h8dxeZLzOHBqfAIwYpRiEY code = 6764336686) SaSWXig9pzCSLgiJPcGlBf MzNcZnRuYmpcdWMxXGRlZm Auv4rul366lBYah8lvNRJa PoP5tLWwGAIwkPDuT886AI YaASwfs2xwh7YrOKFwoBDd d2B5KANDzfxpeHv9zEjeN3 9xm6I1AmbaI2gvOFLcAZwb QNYcPHtjzFVgXXZ6FTBcBH I4SGjiugHablE2JKkqdLSq FvN9FVq9y1gysOvqTEZcRT I4n1gvWNyselAcIK8wne1d dYq2f5yylsUbTNIqZTClmJ TCXEYkW1WgmBnhRd2drGd5 kVslWbhmXJF2Gjr0TB5ucm 77ypg2bTkoOBEymyaqGhZ6 LNvaIVKibjvuKIc6NDcmUE KjfJHgYLYwmCEyJ5TsFCve NY4ytju3FtJyQP0rqznhBP puTIRzSPQ3VnXsTBQjf3Ut xldtRxVnta2grk96JPJ5x1 JnfFwyIZO9JQK7QhEtPf9g uJKhIIBuHZ4pMqMfgKTzDC Ynvb75yKmlSNmnmnQzkV6g JjLaCOPtxDVtZYNgVZ1axT FyWNZpvI0rkveeGUQmApRe ioppIPAatFywjgJkHh3slU kmLLG0PCftC8xhzA1dXiT6 SOzoP1gtiG6eLTt8HNgyhV D3GRZoqF9lAG0pmnhhr5mk GOZ3QBvtNTIsvbK7ovEtXU YjoUEaG7WihX47TdNnmZDy W4RbfL3sWUjkPZNjhni6Rx JeQo1yjCRryLK0TEpfTiar YWdlXHBnbmNvbnRccGduZG VjXHBsYWluXHBsYWluXGYw TIAxVkKxkPcmkPhxpP3zRi BcZnMyMFxwbGFpblxmMFxm czIwIFNwZWNpbWVuIEEgcm VlDWz7QVLsToZkk9atsVYp ETbkAAG8uVXyOZTvTOYgOY EgKM51M4RejhZuVFowWDdr xoXjMhLgFZQmg48cnGJ8yV QkxHKlFEfyFSVpCBPfV7Fz uWLxrwMguJ1sc4NglkGdUU 7zZWSzdsBqw9TsYY4dZKFs k1QzvFQriOXxDAPfs4UtyS rqbrZeRdIbnW4mLMSahoPl z3ihgEErFZ86FSYhQMraSP kcxqk5tSSnuiDixxWoH6nz DcOjko1kXZIiQBnmbJRzei jtYMtdioUdSKZ8QxFfIKfw HONzkOlmjC6zPuMwUfWkWW B3XwEbP37aHUgxiHB9NSAm NRWrliPnt9GnshCtd0p1vP JqwNBxUVNlF9PleFWkyqEd eP2ca3Gbhu5kAXEWxDFme7 Pgo6SrgSHyOXQqj2IktThz gqOoAJ1iEKwtMD7qBWTuSU bzbHWwgi90RRFyJUUhtOea SMZnPYI3x29pv3jfTNTfoU JuFY2wXQK1lQJaeiJwoPW4 rAOeAkEeFOhwjLK1RLItXK dnYHVHgQTjoVWkKk0eYKNa t89acZLviW7fNZSfFFDdGj WeV16sDoTgjGL5iVEexKbb LXhvzVPdL3uaGHNjEOJcGm PxTbKxvNK1gHVwliDhnAXo GQ0qptnvby2bDXznWAL1er phZ1FyVR5paweoazMpFQZo IE0xHX7hRUOnwbButWblGG HiNVOiwIRcPTrgZRjrP9lc HTShceW0TUWkzE5bHIBhjX DyRl1uXYJma35qk2l2ECH3 wRJdgV3jpTpnOEAsMSG7n9 4dy2gmMYZ7THSfCQVupS8v OdIxIjRqNUqvZAXpWS9yVQ PyZAMdpODnr2BplYXfbW5g DJMuqlQfctOwMDSpeFW4f6 SkKZOtyVOwx1YfINX7rDDq WJLkmwIxGQEjTDDxVE2ttK ZoLNZsfWTxa9SfmLU5uATs YSHyF4Tnd44zREGmWYKaxT UdnDT9DZYyVHNrOXGtnHfg xC7lIcOeTlTjBRm8LKFhBV RiVte5IVGyHFefAJGqYFSh MjAgQTQuXHBhclxwYXIgU2 XquGnyozVkj8EdCorvAHOf STE8LWXJLUJ0TAmid4GpG4 hyXRzvcHFvG8fxXVEwLYQb KYPpzyGpcNn8HCjuIBIxHK R7CYVGpVAiuOIetOOihHAy hGAkNJCtiW3mUCUzgGKic3 TmlBJ0zBBvVHYashOMXcyf OJBuzkWufoJ7fB8hJLLsuO WhbGAkFWM2EbRwVX5jzfVc bNEjHCQlUEG4bM0cBS6cXV NeSMlqHVXgn0ArEZCsGOBs ATRnibAwfLx3UKjfNTDgoA GlQJFvomGboAmeyA3aEwWp ZnMyMFxwbGFpblxmMVxmcz GrSTCghLsaUYGdgBKvCL1F HQlGBRBex1qyR8pziVJDx5 Rhf2XatyKcXUVvSZfeGIIz XGZzMjBccGFyXHFsXHBsYW itQFHyETOpMmRajEwucZ9t ZjBcZnMyMFxwYXJccGFyfQ == Embedded Images (test code = 2140273032) [facility] WITH [id number] 11:29:00 Test Item Value Reference Range Interpretation [...] RDW-SD (test code = 48.8 fL 38.5-51.6 97643-6) RDW-CV (test code = 15.2 % 12.1-15.4 788-0) PLT (test code = See_Comment L [Automated 777-3) message] The sy stem which generated this result transmitted reference range : 150 - 328 10*3/ ?L. The reference r meredith was not used to interpret this result as normal/abnormal . MPV (test code = 11.6 fL 9.8-13 44138-6) NRBC/100 WBC (test See_Comment [Automat ed code = 0438001915) message] The system which generated this result transmitted reference range : 0.0 - 10.0 /100 WBCs. The refer ence range was not u sed to interpret th is result as normal/abnormal . NRBC x10^3 (test code <0.01 See_Comment [Auto mated = 5789388255) message] The s ystem which generated this result transmitted reference range : 10*3/?L. The reference range was not used to interpret this result as normal/abnormal . GRAN MAT (NEUT) % 79.1 % (test code = 770-8) IMM GRAN % (test code 0.50 % = 5159773701) LYMPH % (test code = 11.0 % 736-9) MONO % (test code = 7.8 % 5905-5) EOS % (test code = 1.4 % 713-8) BASO % (test code = 0.2 % 706-2) GRAN MAT x10^3(ANC) 4.67 10*3/uL 1.99-6.95 (test code = 0842476816) IMM GRAN x10^3 (test 0.03 10*3/uL 0-0.06 code = 9193352271) LYMPH x10^3 (test code 0.65 10*3/uL 1.09-3.23 L = 731-0) MONO x10^3 (test code 0.46 10*3/uL 0.36-1.02 = 742-7) EOS x10^3 (test code = 0.08 10*3/uL 0.06-0.53 711-2) BASO x10^3 (test code <0.03 0.01-0.09 = 704-7) Lab Interpretation Abnormal (test code = 00972-2) [facility] Test Item Value Reference Range Interpretation Comments MAGNESIUM (test code = 9742192262) 1.7 mg/dL 1.7-2.4 Lab Interpretation (test code = Normal 59536-0) [facility] 11:[facility]00 Test Item Value Reference Range Interpretation Comments PHOSPHORUS (test code = 4555185484) 3.0 mg/dL 2.5-5 Lab Interpretation (test code = Normal 40011-3) [facility] [id number] 13:59:01 Interval extubation and removal of enteric [...] reviewed this study and agree with theabove report.[facility]4983[facility] (ALB,T.PRO,BILI T,BU/BC,ALT,AST,ALK PHOS) 2020-04-09 11:52:00 Test Item Value Reference Range Interpretation Comments TOTAL BILI (test code = 5349371715) 1.2 mg/dL 0.1-1.1 H BILI UNCON (test code = 3089757780) 0.8 mg/dL 0.1-1.1 BILI CONJ (test code = 6393226052) 0.0 mg/dL 0-0.3 T PROTEIN (test code = 3627035492) 4.2 g/dL 6.3-8.2 L ALBUMIN (test code = 6018154061) 2.2 g/dL 3.5-5 L ALK PHOS (test code = 3393712941) 36 U/L 34-122 ALTv (test code = 1742-6) 13 U/L 5-50 AST(SGOT) (test code = 7676356288) 23 U/L 13-40 Lab Interpretation (test code = Abnormal 23455-7) [facility] WITH [id number] 10:01:00 Test Item Value Reference Range Interpretation [...] RDW-SD (test code = 47.6 fL 38.5-51.6 78259-2) RDW-CV (test code = 14.8 % 12.1-15.4 788-0) PLT (test code = See_Comment L [Automated 777-3) message] The sy stem which generated this result transmitted reference range : 150 - 328 10*3/ ?L. The reference r meredith was not used to interpret this result as normal/abnormal . MPV (test code = 11.6 fL 9.8-13 21822-3) NRBC/100 WBC (test See_Comment [Automat ed code = 8018463762) message] The system which generated this result transmitted reference range : 0.0 - 10.0 /100 WBCs. The refer ence range was not u sed to interpret th is result as normal/abnormal . NRBC x10^3 (test code <0.01 See_Comment [Auto mated = 1982405671) message] The s ystem which generated this result transmitted reference range : 10*3/?L. The reference range was not used to interpret this result as normal/abnormal . GRAN MAT (NEUT) % 87.5 % (test code = 770-8) IMM GRAN % (test code 0.90 % = 6260470994) LYMPH % (test code = 7.5 % 736-9) MONO % (test code = 3.4 % 5905-5) EOS % (test code = 0.5 % 713-8) BASO % (test code = 0.2 % 706-2) GRAN MAT x10^3(ANC) 5.12 10*3/uL 1.99-6.95 (test code = 3778837992) IMM GRAN x10^3 (test 0.05 10*3/uL 0-0.06 code = 0875506482) LYMPH x10^3 (test code 0.44 10*3/uL 1.09-3.23 L = 731-0) MONO x10^3 (test code 0.20 10*3/uL 0.36-1.02 L = 742-7) EOS x10^3 (test code = 0.03 10*3/uL 0.06-0.53 L 711-2) BASO x10^3 (test code <0.03 0.01-0.09 = 704-7) DOHLE BODIES (test Present A code = 7792-5) TOXIC CHANGES (test Present A code = 803-7) Lab Interpretation Abnormal (test code = 37154-3) [facility] METABOLIC PANEL (NA, K, CL, CO2, GLUCOSE, BUN, CREATININE, CA)2020-04-09 09:37:00 Test Item Value Reference Range Interpretation Comments NA (test code = 135 mmol/L 135-145 4863299096) K (test code = 3.6 mmol/L 3.5-5 9018423870) CL (test code = 105 mmol/L 98-108 3194648859) CO2 TOTAL (test code = 31 mmol/L 23-31 3623093899) AGAP (test code = <1 2-16 L 5748093140) BUN (test code = 28 mg/dL 7-23 H 9027094043) GLUCOSE (test code = 95 mg/dL 70-110 3944773584) CREATININE (test code = 0.78 mg/dL 0.6-1.25 6743023549) CALCIUM (test code = 8.1 mg/dL 8.6-10.6 L 3487479576) eGFR Calculation mL/min/1.73m2 (Non-) (test code = 8261859028) eGFR Calculation mL/min/1.73m2 () (test code = 4540820335) GILBERTO (test code = GILBERTO) Association of [...] tests). Lab Interpretation Abnormal (test code = 53978-7) [facility] Test Item Value Reference Range Interpretation Comments MAGNESIUM (test code = 3267838578) 1.8 mg/dL 1.7-2.4 Lab Interpretation (test code = Normal 80233-0) [facility] 09:36:00 Test Item Value Reference Range Interpretation Comments PHOSPHORUS (test code = 6638865300) 1.8 mg/dL 2.5-5 L Lab Interpretation (test code = Abnormal 06292-2) [facility] + LACTIC [id number] 21:18:00 Test Item Value Reference Range Interpretation Comments PH (test code = 2) 7.35-7.45 PCO2 (test code = See_Comment [Automate d 1901812059) message] The sy stem which generated this result transmitted reference range : 35 - 45 mmHg. The reference range was not used to interpret this result as normal/abnormal . PO2 (test code = See_Comment L [Automated 8926129651) message] The sy stem which generated this result transmitted reference range : 80 - 100 mmHg. The reference range was not used to interpret this result as normal/abnormal . HCO3 (test code = See_Comment [Automate d 9226104577) message] The sy stem which generated this result transmitted reference range : 22 - 26 mEq/L. The reference range was not used to interpret this result as normal/abnormal . BE (test code = See_Comment [Automated 6794581354) message] The sy stem which generated this result transmitted reference range : -3.0 - 3.0 mEq/ L. The reference r meredith was not used to interpret this result as normal/abnormal . THB (test code = 9.2 g/dL 13.5-18 L 6636048363) %O2HB (test code = 94.3 % 94-99 9155448834) %COHB ART (test code = 0.7 % 0-1.5 4586008628) %METHB ART (test code = 0.3 % 0.4-1.5 L 5712939889) VOL%O2 ART (test code = 12.3 % 15-23 L 6871057329) NA (test code = 135 mmol/L 135-145 0060106029) K+ (test code = 3.7 mmol/L 3.5-5 8039036555) AC CA IONZ (test code = 4.90 mg/dL 4.5-5.3 6662675943) GLUCOSE (test code = 94 mg/dL 70-110 0851693684) LACTIC ACID (test code 1.35 mmol/L = 8058938698) Lab Interpretation Abnormal (test code = 27998-2) [facility] GLUCOSE (AUTOMATED)2020-04-08 16:33:00 Test Item Value Reference Range Interpretation Comments POCT GLU (test code = 2342116355) 109 mg/dL 70-110 Lab Interpretation (test code = Normal 06235-2) [facility] GLUCOSE (AUTOMATED)2020-04-08 16:33:00 Test Item Value Reference Range Interpretation Comments POCT GLU (test code = 2046528130) 120 mg/dL 70-110 H Lab Interpretation (test code = Abnormal 54889-9) [facility] GLUCOSE (AUTOMATED)2020-04-08 16:33:00 Test Item Value Reference Range Interpretation Comments POCT GLU (test code = 4168515551) 93 mg/dL 70-110 Lab Interpretation (test code = Normal 08391-7) [facility] GLUCOSE (AUTOMATED)2020-04-08 12:46:00 Test Item Value Reference Range Interpretation Comments POCT GLU (test code = 0180559191) 109 mg/dL 70-110 Lab Interpretation (test code = Normal 11589-9) [facility] WITH [id number] 10:21:00 Test Item Value Reference Range Interpretation [...] RDW-SD (test code = 48.4 fL 38.5-51.6 48891-5) RDW-CV (test code = 15.0 % 12.1-15.4 788-0) PLT (test code = See_Comment L [Automated 777-3) message] The system which generated this result transmitted reference range : 150 - 328 10*3/?L. The reference range was not used to interpret this result as normal/abnormal . MPV (test code = 11.4 fL 9.8-13 26085-0) NRBC/100 WBC (test See_Comment [Automat ed code = 0946110246) message] The system which generated this result transmitted reference range : 0.0 - 10.0 /100 WBCs. The reference range was not used to interpret this result as normal/abnormal . NRBC x10^3 (test code <0.01 See_Comment [Auto mated = 6923930191) message] The system which generated this result transmitted reference range : 10*3/?L. The reference range was not used to interpret this result as normal/abnormal . GRAN MAT (NEUT) % 84.9 % (test code = 770-8) IMM GRAN % (test code 0.80 % = 1323059152) LYMPH % (test code = 7.9 % 736-9) MONO % (test code = 5.3 % 5905-5) EOS % (test code = 0.3 % 713-8) BASO % (test code = 0.8 % 706-2) GRAN MAT x10^3(ANC) 3.34 10*3/uL 1.99-6.95 (test code = 5389963849) IMM GRAN x10^3 (test 0.03 10*3/uL 0-0.06 code = 2424921451) LYMPH x10^3 (test 0.31 10*3/uL 1.09-3.23 L [...] BANDS (test code = MARKED INCREASED A 8163622671) DOHLE BODIES (test Present A code = 7792-5) TOXIC CHANGES (test Present A code = 803-7) Lab Interpretation Abnormal (test code = 28827-2) [facility] METABOLIC PANEL (NA, K, CL, CO2, GLUCOSE, BUN, CREATININE, CA)2020-04-08 10:02:00 Test Item Value Reference Range Interpretation Comments NA (test code = 138 mmol/L 135-145 6256800213) K (test code = 4.1 mmol/L 3.5-5 5915433132) CL (test code = 109 mmol/L 98-108 H 7124492924) CO2 TOTAL (test code = 25 mmol/L 23-31 1812895740) AGAP (test code = 2-16 9190415663) BUN (test code = 26 mg/dL 7-23 H 6315845734) GLUCOSE (test code = 103 mg/dL 70-110 2193060746) CREATININE (test code = 0.90 mg/dL 0.6-1.25 7695057981) CALCIUM (test code = 8.4 mg/dL 8.6-10.6 L 5168646341) eGFR Calculation mL/min/1.73m2 (Non-) (test code = 6723381990) eGFR Calculation mL/min/1.73m2 () (test code = 3844683928) GILBERTO (test code = GILBERTO) Association of [...] tests). Lab Interpretation Abnormal (test code = 99953-8) [facility] 10:02:00 Test Item Value Reference Range Interpretation Comments MAGNESIUM (test code = 3975621693) 2.6 mg/dL 1.7-2.4 H Lab Interpretation (test code = Abnormal 76057-0) [facility] + LACTIC [id number] 09:43:00 Test Item Value Reference Range Interpretation Comments PH (test code = 7.32-7.42 8142058775) PCO2 PANKAJ (test code = See_Comment [Auto mated 0525208914) message] The sy stem which generated this result transmitted reference range : 41 - 51 mmHg. The reference range was not used to interpret this result as normal/abnormal . PO2 PANKAJ (test code = See_Comment [Autom ated 4896313941) message] The sy stem which generated this result transmitted reference range : 25 - 40 mmHg. The reference range was not used to interpret this result as normal/abnormal . HCO3 PANKAJ (test code = See_Comment [Auto mated 4335577901) message] The sy stem which generated this result transmitted reference range : 24 - 28 mEq/L. The reference range was not used to interpret this result as normal/abnormal . AC VBE(BEAKER) (test mEq/L code = 1010706246) THB PANKAJ (test code = 11.4 g/dL 13.5-18 L 6711422231) %O2HB PANKAJ (test code = 64.9 % 52-63 H 2033401125) %COHB PANKAJ (test code = 1.0 % 0-1.5 1522391233) %METHB PANKAJ (test code = 0.3 % 0.4-1.5 L 9393929409) VOL%O2 PANKAJ (test code = 10.4 % 6-12 6966089561) NA (test code = 138 mmol/L 135-145 4983259299) K+ (test code = 4.1 mmol/L 3.5-5 0714939449) AC CA IONZ (test code = 4.90 mg/dL 4.5-5.3 6806376332) GLUCOSE (test code = 98 mg/dL 70-110 3384732043) LACTIC ACID (test code 1.90 mmol/L = 9784900939) Lab Interpretation Abnormal (test code = 50103-9) [facility] 04:25:00 Test Item Value Reference Range Interpretation Comments POCT GLU (test code = 2014610996) 106 mg/dL 70-110 Lab Interpretation (test code = Normal 13710-0) [facility] 1 [id number] 22:55:21Impression: Stable findings with no new changes.Exam: [...] unchanged.IMPRESSIONIm pression: Stable findings with no new changes.[facility] MRSA / MSSA Screen by [id number] 19:28:00 Test Item Value Reference Range Interpretation Comments MSSA Screen by PCR Narraudel (test code Negative Negative = 86964-0) MRSA/MSSA Positive? (test code = No No 7674533374) Lab Interpretation (test code = Normal 61055-7) [facility]2020-04-07 17:01:00 Test Item Value Reference Range Interpretation Comments POCT GLU (test code = 0179687103) 95 mg/dL 70-110 Lab Interpretation (test code = Normal 14502-8) [facility] + LACTIC [id number] 14:15:00 Test Item Value Reference Range Interpretation Comments PH (test code = 2) 7.35-7.45 L PCO2 (test code = See_Comment [Automate d 7358359337) message] The sy stem which generated this result transmitted reference range : 35 - 45 mmHg. The reference range was not used to interpret this result as normal/abnormal . PO2 (test code = See_Comment H [Automated 9848087262) message] The sy stem which generated this result transmitted reference range : 80 - 100 mmHg. The reference range was not used to interpret this result as normal/abnormal . HCO3 (test code = See_Comment L [Automate d 8614280435) message] The sy stem which generated this result transmitted reference range : 22 - 26 mEq/L. The reference range was not used to interpret this result as normal/abnormal . BE (test code = See_Comment L [Automated 7581261655) message] The sy stem which generated this result transmitted reference range : -3.0 - 3.0 mEq/ L. The reference r meredith was not used to interpret this result as normal/abnormal . THB (test code = 9.6 g/dL 13.5-18 L 5134068586) %O2HB (test code = 98.6 % 94-99 2333700907) %COHB ART (test code = 0.3 % 0-1.5 0565353332) %METHB ART (test code = 0.0 % 0.4-1.5 L 9977871552) VOL%O2 ART (test code = NA 4066614133) NA (test code = 131 mmol/L 135-145 L 4975221396) K+ (test code = 4.3 mmol/L 3.5-5 5510306208) AC CA IONZ (test code = 4.60 mg/dL 4.5-5.3 8119900834) GLUCOSE (test code = 147 mg/dL 70-110 H 3452332688) LACTIC ACID (test code 3.12 mmol/L 0.5-2.2 H = 7978977074) Lab Interpretation Abnormal (test code = 08499-7) [facility] Whole [id number] 14:00:00 Test Item Value Reference Range Interpretation Comments LACTIC ACID (test code = 3.12 mmol/L 1880168749) [facility]2020-04-07 12:53:00 Test Item Value Reference Range Interpretation Comments POCT GLU (test code = 4438569977) 140 mg/dL 70-110 H Lab Interpretation (test code = Abnormal 74880-4) [facility] + LACTIC [id number] 12:01:00 Test Item Value Reference Range Interpretation Comments PH (test code = 2) 7.35-7.45 L PCO2 (test code = See_Comment L [Automate d 2454594375) message] The sy stem which generated this result transmitted reference range : 35 - 45 mmHg. The reference range was not used to interpret this result as normal/abnormal . PO2 (test code = See_Comment H [Automated 4355756398) message] The sy stem which generated this result transmitted reference range : 80 - 100 mmHg. The reference range was not used to interpret this result as normal/abnormal . HCO3 (test code = See_Comment L [Automate d 4446860056) message] The sy stem which generated this result transmitted reference range : 22 - 26 mEq/L. The reference range was not used to interpret this result as normal/abnormal . BE (test code = See_Comment L [Automated 2929981229) message] The sy stem which generated this result transmitted reference range : -3.0 - 3.0 mEq/ L. The reference r meredith was not used to interpret this result as normal/abnormal . THB (test code = 10.8 g/dL 13.5-18 L 4667325131) %O2HB (test code = 98.8 % 94-99 2757280493) %COHB ART (test code = 0.3 % 0-1.5 7414713266) %METHB ART (test code = 0.0 % 0.4-1.5 L 6828477362) VOL%O2 ART (test code = 15.4 % 15-23 0630536771) NA (test code = 126 mmol/L 135-145 L 8538268869) K+ (test code = 4.3 mmol/L 3.5-5 4509127289) AC CA IONZ (test code = 4.70 mg/dL 4.5-5.3 1383062978) GLUCOSE (test code = 144 mg/dL 70-110 H 3644688556) LACTIC ACID (test code 2.79 mmol/L = 4723396781) Lab Interpretation Abnormal (test code = 35071-9) [facility] [id number] 11:44:00 Test Item Value Reference Range Interpretation Comments URINE CULTURE (test No aerobic growth (< code = 630-4) 1000 CFU/mL) [facility] WITH [id number] 09:53:00 Test Item Value Reference Range Interpretation Comments WBC (test code = See_Comment L [Automated 7990-2) message] The sy stem which generated this [...] RDW-SD (test code = 48.8 fL 38.5-51.6 05965-8) RDW-CV (test code = 15.0 % 12.1-15.4 788-0) PLT (test code = See_Comment L [Automated 777-3) message] The sy stem which generated this result transmitted reference range : 150 - 328 10*3/ ?L. The reference r meredith was not used to interpret this result as normal/abnormal . MPV (test code = 11.8 fL 9.8-13 75887-9) IPF % (test code = 6.5 % 1.2-10.7 Platelet count 8396569641) measured by fluorescence method. NRBC/100 WBC (test See_Comment [Automat ed code = 8344274783) message] The system which generated this result transmitted reference range : 0.0 - 10.0 /100 WBCs. The refer ence range was not u sed to interpret th is result as normal/abnormal . NRBC x10^3 (test code <0.01 See_Comment [Auto mated = 6981074732) message] The s ystem which generated this result transmitted reference range : 10*3/?L. The reference range was not used to interpret this result as normal/abnormal . SEG % (test code = 20 % 33-76 L 21839-0) BAND % (test code = 45 % 0-1 H 13083-1) META % (test code = 9 % See_Comment H [Automa dain 74536-2) message] The sy stem which generated this result transmitted reference range : <=0. The refere nce range was not u sed to interpret th is result as normal/abnormal . MYELO % (test code = 1 % See_Comment H [Autom ated 87757-3) message] The sy stem which generated this result transmitted reference range : <=0. The refere nce range was not u sed to interpret th is result as normal/abnormal . LYMPH % (test code = 20 % 14-54 63666-4) MONO % (test code = 5 % 0-4 H 42114-7) ANC (test code = 1.40 10*3/uL 1.99-6.95 L 4036650889) GOLDEN CELLS (test code 2+ See_Comment A [...] 803-7) Lab Interpretation Abnormal (test code = 85075-1) [facility] METABOLIC PANEL (NA, K, CL, CO2, GLUCOSE, BUN, CREATININE, CA)2020-04-07 09:21:00 Test Item Value Reference Range Interpretation Comments NA (test code = 137 mmol/L 135-145 8073884377) K (test code = 4.6 mmol/L 3.5-5 3643091830) CL (test code = 110 mmol/L 98-108 H 8827606825) CO2 TOTAL (test code = 17 mmol/L 23-31 L 1365791710) AGAP (test code = 2-16 3246373573) BUN (test code = 24 mg/dL 7-23 H 9018197564) GLUCOSE (test code = 132 mg/dL 70-110 H 1661057570) CREATININE (test code = 1.23 mg/dL 0.6-1.25 5785368646) CALCIUM (test code = 8.0 mg/dL 8.6-10.6 L 9168559174) eGFR Calculation mL/min/1.73m2 (Non-) (test code = 8262738388) eGFR Calculation mL/min/1.73m2 () (test code = 7568094118) GILBERTO (test code = GILBERTO) Association of [...] tests). Lab Interpretation Abnormal (test code = 45802-6) [facility] 09:19:00 Test Item Value Reference Range Interpretation Comments MAGNESIUM (test code = 0879232517) 2.9 mg/dL 1.7-2.4 H Lab Interpretation (test code = Abnormal 91603-5) [facility]2020-04-07 04:37:00 Test Item Value Reference Range Interpretation Comments POCT GLU (test code = 0346215812) 111 mg/dL 70-110 H Lab Interpretation (test code = Abnormal 49754-2) [facility] District[facility] [id number] 02:35:00 Test Item Value Reference Range Interpretation Comments HCV Ab (test code = 91300-1) Negative HCV Semi-Quantitative (test code = 54229-8) [facility] + LACTIC [id number] 02:15:00 Test Item Value Reference Range Interpretation Comments PH (test code = 7.32-7.42 L 2193335897) PCO2 PANKAJ (test code = See_Comment L [Auto mated 3965179554) message] The sy stem which generated this result transmitted reference range : 41 - 51 mmHg. The reference range was not used to interpret this result as normal/abnormal . PO2 PANKAJ (test code = See_Comment HH [Autom ated 2140158911) message] The sy stem which generated this result transmitted reference range : 25 - 40 mmHg. The reference range was not used to interpret this result as normal/abnormal . HCO3 PANKAJ (test code = See_Comment L [Auto mated 9114997705) message] The sy stem which generated this result transmitted reference range : 24 - 28 mEq/L. The reference range was not used to interpret this result as normal/abnormal . AC VBE(BEAKER) (test mEq/L code = 9347276721) THB PANKAJ (test code = 11.2 g/dL 13.5-18 L 5106513906) %O2HB PANKAJ (test code = 98.7 % 52-63 H 3827224011) %COHB PANKAJ (test code = 0.3 % 0-1.5 2088750443) %METHB PANKAJ (test code = 0.1 % 0.4-1.5 L 8706364342) VOL%O2 PANKAJ (test code = 15.9 % 6-12 H 5668896379) NA (test code = 136 mmol/L 135-145 1421702696) K+ (test code = 4.2 mmol/L 3.5-5 6965561521) AC CA IONZ (test code = 4.60 mg/dL 4.5-5.3 5751018523) GLUCOSE (test code = 108 mg/dL 70-110 0897441580) LACTIC ACID (test code 2.37 mmol/L = 2373420174) Lab Interpretation Abnormal (test code = 82195-7) [facility]NA+K+GLU+CA2+2020-04-07 01:54:00 Test Item Value Reference Range Interpretation Comments PH (test code = 2) 7.35-7.45 LL PCO2 (test code = See_Comment [Automate d message] 7796936279) The system whic h generated this result transmit dain reference range : 35 - 45 mmHg. The reference range was not used to interpret this result as normal/abnormal . PO2 (test code = See_Comment H [Automated message] 8350900919) The system [employer] generated this result transmit dain reference range : 80 - 100 mmHg. The reference range was not used to interpret this result as normal/abnormal . HCO3 (test code = See_Comment L [Automate d message] 0328400155) The system [employer] generated this result transmit dain reference range : 22 - 26 mEq/L. The reference range was not used to interpret this result as normal/abnormal . BE (test code = See_Comment L [Automated message] 5732327710) The system [employer] generated this result transmit dain reference range : -3.0 - 3.0 mEq/ L. The reference r meredith was not used to interpret this result as normal/abnormal . THB (test code = 10.6 g/dL 13.5-18 L 8891065459) %O2HB (test code = 99.0 % 94-99 6367715381) %COHB ART (test code = 0.3 % 0-1.5 7149729097) %METHB ART (test code = 0.3 % 0.4-1.5 L 8989254598) VOL%O2 ART (test code = 15.3 % 15-23 3633803580) NA (test code = 136 mmol/L 135-145 0380453440) K+ (test code = 3.1 mmol/L 3.5-5 L 8960271069) AC CA IONZ (test code = 4.30 mg/dL 4.5-5.3 L 9888682512) GLUCOSE (test code = 113 mg/dL 70-110 H 7662044515) Lab Interpretation Abnormal (test code = 70172-7) [facility]+NA+K+GLU+CA2+2020-04-07 01:53:00 Test Item Value Reference Range Interpretation Comments PH (test code = 2) 7.35-7.45 PCO2 (test code = See_Comment L [Automate d message] 1093217860) The system [employer] generated this result transmit dain reference range : 35 - 45 mmHg. The reference range was not used to interpret this result as normal/abnormal . PO2 (test code = See_Comment H [Automated message] 4687169661) The system [employer] generated this result transmit dain reference range : 80 - 100 mmHg. The reference range was not used to interpret this result as normal/abnormal . HCO3 (test code = See_Comment L [Automate d message] 6408722857) The system [employer] generated this result transmit dain reference range : 22 - 26 mEq/L. The reference range was not used to interpret this result as normal/abnormal . BE (test code = See_Comment L [Automated message] 5767088213) The system [employer] generated this result transmit dain reference range : -3.0 - 3.0 mEq/ L. The reference r meredith was not used to interpret this result as normal/abnormal . THB (test code = 13.1 g/dL 13.5-18 L 2598434180) %O2HB (test code = 98.9 % 94-99 4540889703) %COHB ART (test code = 0.1 % 0-1.5 0720563623) %METHB ART (test code = 0.6 % 0.4-1.5 3272971178) VOL%O2 ART (test code = 19.3 % 15-23 1609315893) NA (test code = 132 mmol/L 135-145 L 7753233130) K+ (test code = 4.2 mmol/L 3.5-5 5573248857) AC CA IONZ (test code = 4.60 mg/dL 4.5-5.3 8077116111) GLUCOSE (test code = 99 mg/dL 70-110 7943365461) Lab Interpretation Abnormal (test code = 47736-9) [facility]-AB WITH [id number] 01:29:00 Test Item Value Reference Range Interpretation Comments HIV Negative Negative Semi-quantitative (test code = 00793-0) GILBERTO (test code = Non-reactive for HIV-1 GILBERTO) antigen and HIV-1/HIV-2 antibodies. ?No laboratory evidence of HIV infection. ?Repeat in 2-4 weeks if acute HIV infection is suspected. [facility] GLUCOSE (AUTOMATED)2020-04-07 00:40:00 Test Item Value Reference Range Interpretation Comments POCT GLU (test code = 9677784358) 100 mg/dL 70-110 Lab Interpretation (test code = Normal 21734-6) [facility] GLUCOSE (AUTOMATED)2020-04-07 00:06:00 Test Item Value Reference Range Interpretation Comments POCT GLU (test code = 0161932352) 116 mg/dL 70-110 H Lab Interpretation (test code = Abnormal 87809-0) [facility] GLUCOSE (AUTOMATED)2020-04-06 22:48:00 Test Item Value Reference Range Interpretation Comments POCT GLU (test code = 6710043067) 94 mg/dL 70-110 Lab Interpretation (test code = Normal 75649-2) [facility] 1 [id number] 21:06:45 1. Interval placement of right internal [...] reviewed this study and agree with the abovereport.[facility] WITH [id number] 20:15:00 Test Item Value Reference Range Interpretation [...] RDW-SD (test code = 49.2 fL 38.5-51.6 68875-2) RDW-CV (test code = 14.7 % 12.1-15.4 788-0) PLT (test code = See_Comment L [Automated 777-3) message] The sy stem which generated this result transmitted reference range : 150 - 328 10*3/ ?L. The reference r meredith was not used to interpret this result as normal/abnormal . MPV (test code = 12.1 fL 9.8-13 50442-7) NRBC/100 WBC (test See_Comment [Automat ed code = 2738990728) message] The system which generated this result transmitted reference range : 0.0 - 10.0 /100 WBCs. The refer ence range was not u sed to interpret th is result as normal/abnormal . NRBC x10^3 (test code <0.01 See_Comment [Auto mated = 9125120264) message] The s ystem which generated this result transmitted reference range : 10*3/?L. The reference range was not used to interpret this result as normal/abnormal . SEG % (test code = 38 % 33-76 64011-3) BAND % (test code = 28 % 0-1 H 49927-4) META % (test code = 4 % See_Comment H [Automa dain 56237-2) message] The sy stem which generated this result transmitted reference range : <=0. The refere nce range was not u sed to interpret th is result as normal/abnormal . MYELO % (test code = 6 % See_Comment H [Autom ated 65575-9) message] The sy stem which generated this result transmitted reference range : <=0. The refere nce range was not u sed to interpret th is result as normal/abnormal . LYMPH % (test code = 16 % 14-54 96325-7) MONO % (test code = 8 % 0-4 H 48494-6) ANC (test code = 0.40 10*3/uL 1.99-6.95 L 3958868059) GOLDEN CELLS (test code 3+ See_Comment A [Auto mated = 7790-9) message] The sy stem which generated this result transmitted reference range : (none). The reference range was not used to interpret this result as normal/abnormal . DOHLE BODIES (test Present A code = 7792-5) Lab Interpretation Abnormal (test code = 78997-8) [facility] 19:55:00 Test Item Value Reference Range Interpretation Comments APTT Patient (test code See_Comment H [Au tomated message] = 3173-2) The system [employer] h generated this result transmitted ref erence range: 26 - 36 Seconds. The reference range was not used to int erpret this result as normal/abnormal . Lab Interpretation (test Abnormal code = 01936-4) [facility] DistrictPROTHROMBIN TIME / [id number] 19:55:00 Test Item Value Reference Range Interpretation [...] tions. Lab Interpretation (test Abnormal code = 94358-5) [facility]. METABOLIC PANEL (46110)2020-04-06 19:50:00 Test Item Value Reference Range Interpretation Comments NA (test code = 137 mmol/L 135-145 6443023228) K (test code = 3.6 mmol/L 3.5-5 7187468844) CL (test code = 109 mmol/L 98-108 H 7316161593) CO2 TOTAL (test code = 18 mmol/L 23-31 L 9834663278) AGAP (test code = 2-16 0835611572) BUN (test code = 27 mg/dL 7-23 H 2859554275) GLUCOSE (test code = 91 mg/dL 70-110 8782808852) CREATININE (test code = 1.38 mg/dL 0.6-1.25 H 0772577774) TOTAL BILI (test code = 1.0 mg/dL 0.1-1.5 1325913720) CALCIUM (test code = 8.0 mg/dL 8.6-10.6 L 2549201644) T PROTEIN (test code = 4.3 g/dL 6.3-8.2 L 4209925506) ALBUMIN (test code = 2.7 g/dL 3.5-5 L 0271978913) ALK PHOS (test code = <20 34-122 L 9125549834) ALTv (test code = 9 U/L 5-50 1742-6) AST(SGOT) (test code = 21 U/L 13-40 4525799950) eGFR Calculation mL/min/1.73m2 (Non-) (test code = 0338968689) eGFR Calculation mL/min/1.73m2 () (test code = 2032717414) GILBERTO (test code = GILBERTO) Association of [...] tests). Lab Interpretation Abnormal (test code = 01066-1) [facility] METABOLIC PANEL (NA, K, CL, CO2, GLUCOSE, BUN, CREATININE, CA)2020-04-06 19:50:00 Test Item Value Reference Range Interpretation Comments NA (test code = 137 mmol/L 135-145 9527174194) K (test code = 3.6 mmol/L 3.5-5 3123862341) CL (test code = 109 mmol/L 98-108 H 2826424240) CO2 TOTAL (test code = 18 mmol/L 23-31 L 8930009505) AGAP (test code = 2-16 9036127666) BUN (test code = 27 mg/dL 7-23 H 7690786289) GLUCOSE (test code = 91 mg/dL 70-110 2165195176) CREATININE (test code = 1.38 mg/dL 0.6-1.25 H [id number]) CALCIUM (test code = 8.0 mg/dL 8.6-10.6 L 8807917664) eGFR Calculation mL/min/1.73m2 (Non-) (test code = 5657817271) eGFR Calculation mL/min/1.73m2 () (test code = 4492680704) GILBERTO (test code = GILBERTO) Association of [...] tests). Lab Interpretation Abnormal (test code = 38671-2) [facility] 19:44:00 Test Item Value Reference Range Interpretation Comments MAGNESIUM (test code = 8023495340) 1.7 mg/dL 1.7-2.4 Lab Interpretation (test code = Normal 50099-4) [facility] + LACTIC [id number] 19:25:00 Test Item Value Reference Range Interpretation Comments PH (test code = 7.32-7.42 L 7041696728) PCO2 PANKAJ (test code = See_Comment L [Auto mated [id number]) message] The sy stem which generated this result transmitted reference range : 41 - 51 mmHg. The reference range was not used to interpret this result as normal/abnormal . PO2 PANKAJ (test code = See_Comment H [Autom ated [id number]) message] The sy stem which generated this result transmitted reference range : 25 - 40 mmHg. The reference range was not used to interpret this result as normal/abnormal . HCO3 PANKAJ (test code = See_Comment L [Auto mated [id number]) message] The sy stem which generated this result transmitted reference range : 24 - 28 mEq/L. The reference range was not used to interpret this result as normal/abnormal . AC VBE(BEAKER) (test mEq/L code = 4528301658) THB PANKAJ (test code = 10.1 g/dL 13.5-18 L 6917224379) %O2HB PANKAJ (test code = 84.0 % 52-63 H 7592982038) %COHB PANKAJ (test code = 0.6 % 0-1.5 5463458083) %METHB PANKAJ (test code = 0.3 % 0.4-1.5 L 6948055987) VOL%O2 PANKAJ (test code = 12.0 % 6-12 8766553174) NA (test code = 135 mmol/L 135-145 6330862815) K+ (test code = 3.5 mmol/L 3.5-5 3209698769) AC CA IONZ (test code = 4.50 mg/dL 4.5-5.3 6456608076) GLUCOSE (test code = 87 mg/dL 70-110 6406361729) LACTIC ACID (test code 3.34 mmol/L = 7419550450) Lab Interpretation Abnormal (test code = 37132-8) [facility] + LACTIC [id number] 19:19:00 Test Item Value Reference Range Interpretation Comments PH (test code = 2) 7.35-7.45 L PCO2 (test code = See_Comment L [Automate d 7452533659) message] The sy stem which generated this result transmitted reference range : 35 - 45 mmHg. The reference range was not used to interpret this result as normal/abnormal . PO2 (test code = See_Comment H [Automated 1078832885) message] The sy stem which generated this result transmitted reference range : 80 - 100 mmHg. The reference range was not used to interpret this result as normal/abnormal . HCO3 (test code = See_Comment L [Automate d 9111331278) message] The sy stem which generated this result transmitted reference range : 22 - 26 mEq/L. The reference range was not used to interpret this result as normal/abnormal . BE (test code = See_Comment L [Automated 4734551430) message] The sy stem which generated this result transmitted reference range : -3.0 - 3.0 mEq/ L. The reference r meredith was not used to interpret this result as normal/abnormal . THB (test code = 10.4 g/dL 13.5-18 L 8054551112) %O2HB (test code = 98.3 % 94-99 1459975623) %COHB ART (test code = 0.3 % 0-1.5 1774730465) %METHB ART (test code = 0.3 % 0.4-1.5 L 4098199689) VOL%O2 ART (test code = 14.8 % 15-23 L 5958907865) NA (test code = 135 mmol/L 135-145 6623534125) K+ (test code = 3.5 mmol/L 3.5-5 1204754707) AC CA IONZ (test code = 4.50 mg/dL 4.5-5.3 8323151363) GLUCOSE (test code = 96 mg/dL 70-110 6739512353) LACTIC ACID (test code 2.95 mmol/L = 9916465050) Lab Interpretation Abnormal (test code = 16062-9) [facility] [id number] 16:51:00 Test Item Value Reference Range Interpretation Comments Case Report (test code Surgical Pathology ? ? = [id number]) ?Case: [id number] ? Authorizing Provider: ?Bia Pedro MD ?Collected: ? 04/03/2020 1513 ?Ordering Location: ? ? [facility] OR ? Received: ?04/03/2020 1657 ? Department ? Pathologist: ? Nimisha Galloway MD PHD ?Specimens: ? A) - COLON, total abdominal colectomy ? B) - COLON, donuts x2 ? Final Diagnosis (test n6kcvYItHWMjo7qvKAEbmB code = 6314194606) FuZzEwMzNcZnRuYmpcdWMx YPuedeGtVGwkl4EhK9KhMi AwMFxhbnNpXGRlZmxhbmcx GRBjJCE0snElLWEeCBpmVQ CyCJcpWl4nqORsnAzjAdYd JFUuo2exrsHWatamzFm4d3 sbRLSaGbM3gWFkJCjfD8ur toOxiCHdPDHxQDz4hX34GG IptL5nqNIdDJifdcJiYFas ieUjvoJrUff7KIGqR4xsHE JnQIMjN5VqMD9dHJFmSah3 QLU3YVY6zOzji0C1gTTaoB GwhZccYcZqYhWnCVIVp6Re RJd4vOnvN5FdPKStZqX1uC QgUGFyYWdyYXBoIEZvbnQ7 wZlwZ3MzYTAhSpV2zRLhKR WzVVdjCHIcAr2sdQn2dXnf XjmkJYB3Xnx4DC9hou40uc g8vCnsOWEovemcGeS3MItu WBXytiteAPc6UNvfTQBstZ CdKNOgsTXoH4MaZSfiNM1r eyk7XiHzOH4wcfvmCJgcUU YwTKR3NuIoQFWog4Nwapko JeLjdy5tfo69VUF3g3SqgM rpJFU6ILG5QdTiIb2zcRRr LAKbJB3zIlDzhJRlRLIqjj 25yPwmKFgotwChnN2zBqJv NIBlpIWqGJFnOK0aeBElNB DexF5rbhkpAYCfOdLqtiga PMIizVlyppSxGl7oqVbxEP N0CHibB2mocW2yQkO9ZMux G9ennI2xBAf2NPisaWQ8SW EslK7bEK9prqwww5fqBCO2 ADioBGGxbeH4rrVmKJFnbZ JuM4YmdA56GyWqnOKyP7Cl jA2tDSogEVTacqd8ZlUmQn 6ygSYyeLX3AWtuXxnqVFzk XHBnbmNvbnRccGduZGVjXH BsYWluXHBsYWluXGYwXGZz VeKloOyepBttjL5iRoZmEl MyMFxwbGFpblxmMVxmczIw EXSsvnDWUqDOM3gEKbmbPJ 9LATlcXdGFPNWKOK4INizi KLXgEODnRX5eUhRPR9BMDK BbN07EF7NPYTtXAdYMOLAB HCPYVg2SS26PYCLFBB7IAg YVLVrAMWFSE19AGTDEIOXC OtIGPOPAZDOAK3xYOUseDJ ZrWHOeJMCwU4BIFSBQW7QF I64wZNOdljEqDZVeLZLGAK jWHPMXDBUNVRBME3OVWZ8J KW4AACoBJKCfR3iATKUPTJ EqM67AL70ABtJGXyFLDDsH OEYJTSCSJK2JIFdGTgCMHX sALtkCWHYYS8SBMOPwaPVu ZHLuJNWfOX8NZ4YXTTCRRN 9OXHBhciAgICAgLSBOTyBF RqfGQU3NMNJWZePKVARCS9 YPWW3QA2CNA5rSQNlwRUYw EKCcPF7aHV8HVBFIQrKYQZ BTRVNTSUxFIFNFUlJBVEVE UAVVUD3XHAFwcCCfKIStIF AtIFJFQUNUSVZFIExZTVBI EV5HZRBJKUCufeIoRPTxQW RDQSJCFBUqBeFSEAFJBM1Z EJ0CCjbHOzEwnVOxMFLcyf xwbGFpblxmMVxmczIyXGxh xckiIBIlARjpF8zsWeYzDM CxuSvmBAxvk6VsPBVvMBNw RBcgayAgLQClj9lpMTNuVf L2cJPkYJSZPnHTJuPrRR6n TZ1uAQFeFUVgLYvzQjODCF xwbGFpblxmMVxmczIwXHBh eovsAWP0r3ihpMCyANWboC WjNsHyDYZkBLHph1viWKBr bGFuZzEwMzNcZnRuYmpcdW DuQJOpCxKcu4nbc240hDBu h7qlDZFbIwE8lNHwRDTafS ntmgg1tTxsDzWpSXDop0yz cyBcZmNoYXJzZXQwIEFyaW MkT447VYPxEUdnr0whx0Dg AVQnkMJxg6N0IBOLBAqlLq JlR017l4aer5njmkPqkER3 FDRxRTA4SMxcszWrcgI1EG xwnOWwQaI6JTpwkhCiVDos iaSsvcWiGav3LHDkP519DO J3cVfqm1wrTMN6OLEeRSCi BfqlSp4crDCpT285ARGnOE DNJOWjwGr2HCHuvnKmbzRl zIIAz856O866z1jxKKJdfa ZbnFvPwgwcy3zeW390RGRv cGVydzEyMjQwXHBhcGVyaD U2HTUzDQ9pajnoQXjmDBpl LUHyoaZ3PANtqFLoU3AmYG MyUO9nbiznJAE0DEudJUSd FPC9MjCcIDFcj0Vtetr3Nf Jcme6zql19AYY9q6YszOjz LVF7NRA9NsAbVu5bwNJkPN YtFI0tMqZdoVSoGGQmkt47 tGfqHQyckwEetK2pIeVyGD QexDFaKXGbPQ6ydDFdCBSv tQ2qiinxHZYfZjVdycacJO NvsYxxfbVfEu6gqVdtSAQ8 YYrgM0ysdX1nYeD4KSsjP6 tpqH5sVBk4LLspyDR8DQBy aL6bGJ4ozjvxh1dcYUolHK yiGMZardY4zpB0JEIixULg E3SkjX7wNHTyHV6jztxar5 rzSXN1LCvbTNDwKOW6XiHj WXVpp8Xerjo7BlLqn3AbeR WqSFzpR03id827WZVvfdBh E5bqmUKgcczsvHTozecnAF ggigC2DLGiODOuZThkRNFq XGZzMjBcbGFuZzEwMzNcaG ljaFxmMVxkYmNoXGYxXGxv K5nvJtGjM6UvRNMcQbTiiD CgCFrckZC7PXDwQGYca63g oHl4WYLegnkgu8SqRDMliI QeoILqkM3wknRhi0mmKZQg MWWzKMIcQ3LmORG0wBPdMS JjgGGfkPQ7RE9uruWtTC9a ZGUgYnkgcmVzaWRlbnRzLC MjCEpwd1rqXC9aNTHajUtg iR7jlRD1RMUhh8srtJQacX Dvx6tpb3NqqfPkXCmkJKRp NWloPGPyBMHrXG4nDEQuoS NxjxVlw8H9SxypaZZadvoc FfcpcvR2BXhmpzxmNIGdXW iiZ0wcLnNdPMCdwDokSxpf b7RdFGIoHAJjVanuhDIekT 0= Clinical Information Large bowel (test code = obstruction [K56.609] 3732353546) Gross Description (test c4oakGOyKDMetWDgItIqAL code = 6080240235) HfQIGho4haDKChdYYiRxKj MzNcZnRuYmpcdWMxXGRlZm Sxb5qtp964sJVvw5pyFANh QgH0wVBbBFDicBQpS657SQ QzNEydw1jgp9ObXIPtnNIi a9T2JLTXivkbxYu6cTjzI6 3qa9Z9TglcD4rvOEYuUQmu FGBaNBeedPUgFVX8JGTfVA H9GPeyyrWkemB4SBixjHIp SuT2AUl8p0vzePyyHYHgCZ O4k3kqFGcnglBjCC3gav1z dIk7i4fhtmNpIPYeKNOkyN CSANYbK2XapPxrEn7ydLv2 aLzlQtpbBKP8Drh7QJ9glp 00xeo1sEjmFJFpusohPkB6 XFurGILlctmwABl4OYsdCD XmzNYxZCOuzGBkN6TgGNpd WT8lnmc0AvHyCY9pxspxUT ltCETwLDI8GzKhYRAoa4Xd kwafCqMpqu0cdr49PHX9z6 EwwHoiLWQ7VHE7NwWeBf1p kLBkRAUfFJ5uZeAdyKJmID Usvk84sGmwLWytsrNhxW2r PtKiZDHdgDQtLVKcLU8knH GaEVWlsW4paknqFVCsTiBs kfdsGIZzbEarwmKcZi5jxM rwSYT7PTwtJ0qzqP7wGvR8 UFpwZ6lhiD3hIGp8QMsejP Q6XEOenT4hLA4gbgcrr8kw WFD9BVgyIZOgmlH6irKdMS OqxUTqD1UpfX29UvYuqJUx C9EliC1bKXtyHYNthxd9Ft RxJy8cnCVzcXA0AAjvRthv YWdlXHBnbmNvbnRccGduZG VjXHBsYWluXHBsYWluXGYw UKTrWzGrgPgvbNiacQ4fGj BcZnMyMFxwbGFpblxmMVxm czIwIFNwZWNpbWVuIEEgaX JpvwTrETn0JGEmSoBzi9df pSSrSYcvRUZeb0q5jYQ7tD TznCK5fGIdxQsxJW1lkKXz JQYMHS80zTWlimUzB23sn9 9uZCGtfWImPBIbPF5atL3q dOJvj7lcK9BgcYejYHOzxc ZnS42ad4ebeAXtv0TtXNV7 x6AipUXtu0igA2NakPgja2 LaH8vkHS8dYCsfFtGbV34l wQ0ykINxH7InTKxdOO6fEC AgVhPqW00nsR1qTEnfmLR1 EVUuMWbidCywGBH5VEMlNT OwfGWkgGbqSEvvlGvisA5k BQLvRUZvbTYiytPwDA3yyP eyeVE2IsJrV57dEZxxyRU3 AIOjDEN2xNQwWZ1fRNkox0 NzbHkgaWRlbnRpZmlhYmxl QUOzhVUwCNo7WhWUpKDlo9 Ovn1EgLTgiDPQpiu8qECHt LT0aHZApb232lMQ9mMBgEM KaiNW6RSLpyfRfd5Cozp7m VGhlIHNwZWNpbWVuIGlzIG 6sIH0sPMQqcR7jBkOapNUx GA12mF8lt1IbfAWvdEAzZo 9yZGVyLiBUaGVyZSBpcyBh YEZitbQ0fDMmvvTjaFsyyD B0NUycEJgyFYijYBZfC9Nr PJIej29cALKrdhS1zG33vl LmtTIhVCA0XWTxIVKroMCi BuZaN76iUhQoeOF0oTJnZF ogrBWjOB6veeymdtSpvsYo TEByG14nYoNwnXD3bFXqpW AfiMvvESgrkWByR1qqCkVM ue31lY8xlZW8niZ0wVIjqO RuemlwjUYarJNjBK68uI3k AVAgn5LcM1qgZBbdu5Yzgj K6dFWvYr46IQpqwTMsMGcu dGVuZGVkIGZvciBhIGxlbm k9wDSeJiHzKY4aIWDsDqXY pGWgvB0zbMkqGSAqc2Ldqc DhHEGgQVsvi34xbQujRU73 V14xFKStudPju6EawFn7MT SlVSA2NU3wPNsyU2EmipEd YXIsIHdpdGggYXJlYXMgb2 GpT37rTcqpn0DqddVfBALr GUXiHW5wFYPrydQgT6neHg Rlvb5iLMVbUT2tXa44CKLw BU1eSKoiPZobwKbvn9WkmE iiWKLbm3AuclTgWAWjDHrk v67goYTcfUgdI8tuuuHgPY ZbMLLwrKUpXYS9IIxxZT1i bK0tPAEmi68wUB4qYEKsSa KiyUnrKRVrARSwTN2svN4e joszoCRmw6DyCQ4gLGAoAA Mlo2oqguIvliO1OT1abMsf upWqupTimJlnWJKta1OlmG LbQFEsrZ3dLUIrALKtyxIq ex3al9g5TTEwJFSyCQ0pHP OyeFbtLAtjXN9eCDXzkTLh oC1inLfvaxM4fIWhMGVkks BhbiBhZGRpdGlvbmFsIHdl cXxcpUXocVZvGNI4evziY7 JgRSXeUFQwHKXke8TnuBY4 jjF4kVWhzWjas4LaP9AtHD b5shU7eH4oQFXzPKByQTkw INKjuM3is6aoxZYntZzwa8 DkK7HiKLGocVAwMAixtVtf QN6uCGO2IHPpHEOue3QnmZ BmaRTuMvQpyyKod4PycrGk CBNjMQIvfSXpolLoZC8wzW soZiyzAY38IVCgZQcxKQAa JX1ipETvVDQ7kTZgIKSae3 VkmJVgKACxKLQcg8UhgBvk IGxpbmUgYXQgdGhlIGJsaW 7uPSFwTUbxf2Jcle24ncOo SDDhvERdtYSrU6wnGLFqXE xij9XdLPHpc2K5GQ8pJDgm IHJlbWFpbmluZyBtdWNvc2 Wzs8QcvBrbMEvxAJSxQWfi VXYwRzX9u1KeuWQkbBGfkV BhbmQgdGhlIHZpYWJpbGl0 sCYqRmS5sSPslfFeVFW3bF 5pBN5bdrgmnbRzAR4wn3Bx PqPxV0Vux9TynGDfTTCitm 1pbmVkLiBUaGUgcGVyaWNv yO2uvRNrKCUdeE2vJMT2zJ KquASleSZdnFUneWP3MCVh Ae4pZYDurA7zv1vhgTHnzV awxNgvbg7sKZBaJXCqzdfe dknbYyAveCBxYrNcIV41JP TqEWpcBZrnGUP1DWI5YXCh pEZvp7zulavcEEGapFZss0 JkcTJ6yVZuIKPnJ1Rvs41t IZVzIVLcjYYutJM8GUNsuM 4gQTEtQTEwLlxwYXJccGFy OPNeV0Qaq28gU44fQCnymP GoKJCfRiYLkf32cJ7ueFMy EOHdH2Stx20ijSXyI1jfNB BlbiBmYWNlLCByZXByZXNl ehAfkQh1LKybRHUzKVY2IF Qwe2MeiVIsVWXhT8Sai90n bBAvC4pwJFOkyoCmITZoNT MvJGAsPOQmpqKegHk9KMhw TGNeQQF6JEdpDA1rVTYldI LhbJ3zpOfiuhZ2aZBvBSG7 uxyzK4PjROUzGUWpJELhsC Ltp2YnfJK5jKGfOSHdfcAK ZIciSuYfgxFrAW72UHXqls Ygv1KubRxiusJrr5OqnJSn r4LuFALhEOC7WWpuQJYmg5 hpbWFsIHRvIHRoZSBkaXN0 ZE2pKQYeCQJwLOfhNBWfFC NiEJK1SBPpaTFdc4GquHH3 rZQyXLEzC0Egs12hTJ8jIO 38E55oHYUbjbWcr8CpoAFv zl4wETGeWIRpoXR5GW1oQR MdWKTdNDqcYKAlYNt1EJHw DANvq7DfXZL3igagJ3FlWD NjYXIgZGlzdGFsIHRvIGRp k9ZkphWsUJEwanRjNIXrLS VaIXUlogXhkNv0WCfaSUUd VXs6FULzkUAvn1JwpOR0hU SxJCUnZ4Inn24fQO3qYI92 G07wPTKbwzNof8WhaMNlxH W0YHxpgK9tyLroWCAzy5Qz bmRlZCBhcmVhXHBhciBBOT ffRD5qt3cnbRFhqVaxf2Az D4LaMRWvqPCpKXTlZEKgMO NfnnBbnVh6BXkzRXWzOLPt YnDDbh4cruLbNRR2lQ6bDS 9mIGludGVzdGluZSBhdHRh P7ldKWA7qiLzm8XrpDIuDA RioPRwK6UaGQugcjEvelZw WEUunZGkj6RjbSV3sDEvIK TjjnKBIVH8VICvcO8ze6ul mISkxCphcLdiab2fJNVsFX rct5syIJrbAFHqmLQrEWYw msQxxIlprB9gIxTzKdCxPU xwbGFpblxmMVxmczIwIFNw ZWNpbWVuIEIgaXMgcmVjZW l0DWPrUvHlw3cgpMNeTBfq OJT8cUNgJHLnXXPcGEIiTF 85K4OufnVbMUtyJQlahqZf RrTnXQGhf5jsuzblQR2bwM GmFOeuGIdgPaeuGS4bSXXn pqLhr0DaXF2sMHPyZN3pg2 LqoE0olF4qQPWjrtP5dsRc EI72YOyzQP08AFxjTI36QH NtIGFuZCAyLjUgeCAxLjkg tCRiWjsfK80oEfGMp7ZzCI BxsqK9qtEcdnFnCtkiDHS4 RBWuHNSlNTZetGJllO0kxy NzyrTqdXXafZR4QTDiZU97 qAIgkOheFS6iVnGeKDBcyv YOYL9PAjcwnUYzW1YaLGZu mfD2QBdtDXSbHWLuPBAkQP BzbWFsbGVyIGRvdWdobnV0 IGluIEIzLiBccGFyXHBhci NQRVE7XWLcbtKlvMopONOX RFEfTEIrT0R6TGMpbTbjMI MhZLR3pvTdUNSwG7JtTHLE DWFNC3VlGUJrFPirRQUvQJ ZzMTZcbGFuZzEwMzNcaGlj aFxmMVxkYmNoXGYxXGxvY2 zuQiHmH6ViWBWyKFBvZ99u wCeucO6qQwJzUkFiBGyrXT ZhkMdtlYtspM3sEmIoBiPp MFxwbGFpblxmMVxmczIwXH Bhcn0= Embedded Images (test code = 3008514201) [facility] 16:04:Ana Ahn MD ? ? 04/06/2020 11:06 AMIntubationUrgency: emergent Difficult airway General Information and Staff Patient location during procedure: ORAnesthesiologist: Cynthia Herring, CARMENesident/WORKERS COMPENSATION CLAIMS ANALYST: Dana Sampson DOPerformed: anesthesiologist and resident/WORKERS COMPENSATION CLAIMS ANALYST Indications and Patient ConditionIndications for airway management: [...] from glidescope to advance tube into airway. [facility] 16:04:Ana Ahn MD ? ? 04/08/2020 ?5:11 AMIntubationUrgency: emergent Difficult airway General Information and Staff Patient location during procedure: ORAnesthesiologist: Cynthia Herring, MDResident/WORKERS COMPENSATION CLAIMS ANALYST: Dana Sampson, DOPerformed: anesthesiologist and resident/WORKERS COMPENSATION CLAIMS ANALYST Indications and Patient ConditionIndications for airway management: [...] glidescope to advance tube into airway. Additional UlmmokfjT1i on VL by CA1, multiple attempts by CA1 with ETT with stylet and bougie, unable to pass ETT through glottis. BVM between attempts. Glidescope stylet with ETT used by faculty under VL, attempt x 1 by faculty, g1v, atraumatic.[facility] DistrictXR [id number] 15:42:20 Large volume pneumoperitoneum. Continued gaseous distention and dilatation of the stomach and smallbowelfollowing total colectomy with ileoanal anastomosis may representpostoperative ileus. Findings regarding pneumoperitoneum were already communicated to [facility]. Preliminary Report Dictated by Resident: Bart [...] project over the midline in the lowerabdomen. [facility], Radiant Results Inft User - [...] small bowel and issimilar to prior radiographs. Harmans project over the midline in the lowerabdomen.IMPRESSIONLarge volume pneumoperitoneum.Continued gaseous distention and dilatation of the stomach and small bowelfollowing total colectomy with ileoanal anastomosis may representpostoperative ileus.Findings regarding pneumoperitoneum were already communicated to [facility].Preliminary Report Dictated by Resident: Bart Klein reviewed this study and agree.I, Weston Wu MD., have reviewed this study andagree with theabove report. [facility] DistrictType and Screen - ONCE [id number] 15:18:48 Test Item Value Reference Range Interpretation Comments ABO & RH (test code O POSITIVE Performe d at [facility] = 20) Laboratory Serv [facility] [facility] [address]Bukd Free: [phone] A No. [id number] IAT (test code = Negative Performed a t [facility] 1185) Laboratory Serv [facility] [facility] [place] [id number] Free: [phone] A No. [id number] [facility] DistrictXR CHEST 1 [id number] 15:09:51 1. ?Interval development of a large [...] the midline and inferiorly beyondthe diaphragm and ljzfc-nl-exyl. Left diaphragm is elevated with interval development of large amount offree air noted under the diaphragms, better seen on concomitant abdominalx-ray. Lungs are clear without focal consolidation, pleural effusion orpneumothorax. The cardiomediastinal silhouette is stable. ?No acute osseousabnormalities. 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 Left diaphragm is elevated with interval development [...] readback. Preliminary Report Dictated by Resident: Jovanna Bhandari MD., have reviewed this study and agree with theabovereport.[facility] [id number] 14:52:Ana Schulz MD ? ? 04/06/2020 ?9:53 AM Central [...] tolerated procedure well with no complications ? [facility] [id number] 14:52:Ana Schulz MD ? ? 04/06/2020 ?9:53 AM Central [...] tolerated procedure well with no complications ? [facility] [id number] 14:51:44Ana Syed MD ? ? 04/06/2020 ?9:52 [...] complications and all wires accounted for _ [facility] DistrictAr[facility] [id number] 14:51:44Ana Syed MD ? ? 04/06/2020 ?9:52 AM Arterial Line Date/Time: 04/06/2020 9:21 AMPerformed by: Ana Syed MD Arterial Line Placement: ?Ultrasound- Guided: ultrasound guided ? ?Patient Location: ?OR ?Indication: continuous blood pressure monitoring and blood sampling needed ?Staff: ?Supervising Anesthesiologist: ?Cynthia Herring MD ?Resident: ?Ana Syed, MDProcedure Detail: ?Catheter Size: ?20 gauge ?Catheter Length: ?1 and 3/4 inch ?Catheter Type: ?Arrow ?Seldinger Technique?: No ? ?Laterality: ?Right ?Site: ?Radial artery ?Line Secured: ?Biopatch, Tegaderm andtape ?Preparation: ?Chloroprep, drape, sterile gloves, guidewire removed intact and biopatch appliedEvents: ?Events: ?Patient tolerated procedure well with no complications and all wires accounted for _ [facility] [id number] 13:22:00 Test Item Value Reference Range Interpretation Comments WBC (test code = See_Comment LL [Automated 6690-2) message] The system which generated this result transmitted reference range : 4.20 - 10.70 10*3/?L. The reference range was not used to interpret this result as normal/abnormal . RBC (test code = See_Comment [Automated 789-8) message] The system which generated [...] RDW-SD (test code = 47.8 fL 38.5-51.6 87926-1) RDW-CV (test code = 14.6 % 12.1-15.4 788-0) PLT (test code = See_Comment [Automated 777-3) message] The system which generated this result transmitted reference range : 150 - 328 10*3/?L. The reference range was not used to interpret this result as normal/abnormal . MPV (test code = 12.1 fL 9.8-13 13350-3) NRBC/100 WBC (test See_Comment [Automat ed code = 2974125026) message] The system which generated this result transmitted reference range : 0.0 - 10.0 /100 WBCs. The reference range was not used to interpret this result as normal/abnormal . NRBC x10^3 (test code <0.01 See_Comment [Auto mated = 5830442284) message] The system which generated this result transmitted reference range : 10*3/?L. The reference range was not used to interpret this result as normal/abnormal . GRAN MAT (NEUT) % 71.6 % (test code = 770-8) IMM GRAN % (test code 0.90 % = 0450192127) LYMPH % (test code = 18.3 % 736-9) MONO % (test code = 9.2 % 5905-5) EOS % (test code = 0.0 % 713-8) BASO % (test code = 0.0 % 706-2) GRAN MAT x10^3(ANC) 0.78 10*3/uL 1.99-6.95 L (test code = 7329753419) IMM GRAN x10^3 (test <0.03 0-0.06 code = 6003069021) LYMPH x10^3 (test 0.20 10*3/uL 1.09-3.23 L code = 731-0) MONO x10^3 (test code 0.10 10*3/uL 0.36-1.02 L = 742-7) EOS x10^3 (test code <0.03 0.06-0.53 L = 711-2) BASO x10^3 (test code <0.03 0.01-0.09 = 704-7) GOLDEN CELLS (test code 2+ See_Comment A [Auto mated = 9622-9) message] The system which generated this result transmitted reference range : (none). The reference range was not used to interpret this result as normal/abnormal . BANDS (test code = MARKED INCREASED A 5154368974) Lab Interpretation Abnormal (test code = 41617-4) [facility] METABOLIC PANEL (NA, K, CL, CO2, GLUCOSE, BUN, CREATININE, CA)2020-04-06 12:38:00 Test Item Value Reference Range Interpretation Comments NA (test code = 134 mmol/L 135-145 L 8352605361) K (test code = 4.5 mmol/L 3.5-5 7413223685) CL (test code = 105 mmol/L 98-108 0691401199) CO2 TOTAL (test code = 18 mmol/L 23-31 L 0723125498) AGAP (test code = 2-16 6687006032) BUN (test code = 30 mg/dL 7-23 H 7336427765) GLUCOSE (test code = 117 mg/dL 70-110 H 6945180159) CREATININE (test code = 1.95 mg/dL 0.6-1.25 H 6132013408) CALCIUM (test code = 8.6 mg/dL 8.6-10.6 9636912239) eGFR Calculation mL/min/1.73m2 (Non-) (test code = 5402350395) eGFR Calculation mL/min/1.73m2 () (test code = 7604248294) GILBERTO (test code = GILBERTO) Association of [...] tests). Lab Interpretation Abnormal (test code = 70793-1) [facility]2020-[facility]14 12:38:00 Test Item Value Reference Range Interpretation Comments MAGNESIUM (test code = 4015360650) 2.3 mg/dL 1.7-2.4 Lab Interpretation (test code = Normal 02754-6) [facility] [id number] 23:28:32 Prominent gaseous distention of small bowel [...] pelvis. Note: Left hemidiaphragm isnot fully within brqal-ta-oscu. FINDINGS: Status post colectomy. Massive gaseous distention of the stomach and to lesser degree of smallbowel. Paucity of gas within the anorectal region and lower pelvis.Multiple surgical clips project over the right lower quadrant. Staplesproject over the midline. No pneumoperitoneum within limits of single AP technique. [facility], Radiant Results Inft User - 04/05/2020 6:29 PM CDTEXAM: XR KUBHISTORY: 50-year-old male status post total abdominal colectomy withileorectal anastomosis on 04/03/2020. History of colonic dysmotility.COMPARISON: CT abdomen 03/30/2020, CT abdomen 03/25/2020, acute abdominalseries 03/02/2020TECHNIQUE: AP views of the abdomen and pelvis.Note: Left hemidiaphragm isnot fully within sxwsm-bz-gtbr.FINDINGS:Status post colectomy.Massive gaseous distention of the stomach [...] this study and agree with theabove report. [facility] [id number] 23:22:45 Esophogastric tube tip projects over the [...] Bilateralhemidiaphragms and upper abdomen are not within pfxcp-wc-ezco. FINDINGS: The tipof the esophogastric tube projects [...] Bilateralhemidiaphragms and upper abdomen are not within bpoih-fg-qfyq.FINDINGS:The tip of the esophogastric tube projects over [...] reviewed this study and agree with theabove report.[facility] (NA, K, CL, CO2, GLUCOSE, BUN, CREATININE, CA)2020-04-05 11:08:00 Test Item Value Reference Range Interpretation Comments NA (test code = 137 mmol/L 135-145 6061924253) K (test code = 4.4 mmol/L 3.5-5 4369870989) CL (test code = 104 mmol/L 98-108 0426847775) CO2 TOTAL (test code = 24 mmol/L 23-31 4672484972) AGAP (test code = 2-16 9680852403) BUN (test code = 10 mg/dL 7-23 1351328165) GLUCOSE (test code = 104 mg/dL 70-110 3518387166) CREATININE (test code 1.18 mg/dL 0.6-1.25 = 4629737375) CALCIUM (test code = 8.7 mg/dL 8.6-10.6 8598007822) eGFR Calculation mL/min/1.73m2 (Non-) (test code = 5775112782) eGFR Calculation mL/min/1.73m2 () (test code = 2666745384) GILBERTO (test code = GILBERTO) Association of [...] or urine or abnormalities in imaging tests). [facility]2020-08-13 11:08:00 Test Item Value Reference Range Interpretation Comments MAGNESIUM (test code = 7635108711) 2.3 mg/dL 1.7-2.4 Lab Interpretation (test code = Normal 78827-4) [facility] WITH [id number] 10:32:00 Test Item Value Reference Range Interpretation [...] RDW-SD (test code = 47.8 fL 38.5-51.6 78696-0) RDW-CV (test code = 14.6 % 12.1-15.4 788-0) PLT (test code = See_Comment [Automated 777-3) message] The sy stem which generated this result transmitted reference range : 150 - 328 10*3/ ?L. The reference r meredith was not used to interpret this result as normal/abnormal . MPV (test code = 11.6 fL 9.8-13 13357-9) NRBC/100 WBC (test See_Comment [Automat ed code = 7568812608) message] The system which generated this result transmitted reference range : 0.0 - 10.0 /100 WBCs. The refer ence range was not u sed to interpret th is result as normal/abnormal . NRBC x10^3 (test code <0.01 See_Comment [Auto mated = 6432151690) message] The s ystem which generated this result transmitted reference range : 10*3/?L. The reference range was not used to interpret this result as normal/abnormal . GRAN MAT (NEUT) % 82.4 % (test code = 770-8) IMM GRAN % (test code 0.30 % = 4243876266) LYMPH % (test code = 12.4 % 736-9) MONO % (test code = 4.5 % 5905-5) EOS % (test code = 0.2 % 713-8) BASO % (test code = 0.2 % 706-2) GRAN MAT x10^3(ANC) 5.12 10*3/uL 1.99-6.95 (test code = 3930534579) IMM GRAN x10^3 (test <0.03 0-0.06 code = 1416670794) LYMPH x10^3 (test code 0.77 10*3/uL 1.09-3.23 L = 731-0) MONO x10^3 (test code 0.28 10*3/uL 0.36-1.02 L = 742-7) EOS x10^3 (test code = <0.03 0.06-0.53 L 711-2) BASO x10^3 (test code <0.03 0.01-0.09 = 704-7) Lab Interpretation Abnormal (test code = 87620-3) [facility] METABOLIC PANEL (NA, K, CL, CO2, GLUCOSE, BUN, CREATININE, CA)2020-04-04 11:02:00 Test Item Value Reference Range Interpretation Comments NA (test code = 135 mmol/L 135-145 4289776903) K (test code = 4.4 mmol/L 3.5-5 Slight 1565875137) hemolysis CL (test code = 103 mmol/L 98-108 5331293481) CO2 TOTAL (test code 26 mmol/L 23-31 = 2393370017) AGAP (test code = 2-16 4388488314) BUN (test code = 7 mg/dL 7-23 Slight 7230226577) hemolysis GLUCOSE (test code = 119 mg/dL 70-110 H 7859086608) CREATININE (test code 0.95 mg/dL 0.6-1.25 = 9487885613) CALCIUM (test code = 8.3 mg/dL 8.6-10.6 L 7800418138) eGFR Calculation mL/min/1.73m2 (Non-) (test code = 0286226353) eGFR Calculation mL/min/1.73m2 () (test code = 8936178121) GILBERTO (test code = GILBERTO) Association of [...] tests). Lab Interpretation Abnormal (test code = 74142-4) [facility] 11:02:00 Test Item Value Reference Range Interpretation Comments MAGNESIUM (test code = 3411003951) 1.7 mg/dL 1.7-2.4 Lab Interpretation (test code = Normal 86892-9) [facility] WITH [id number] 10:31:00 Test Item Value Reference Range Interpretation [...] RDW-SD (test code = 46.5 fL 38.5-51.6 21870-7) RDW-CV (test code = 14.3 % 12.1-15.4 788-0) PLT (test code = See_Comment L [Automated 777-3) message] The sy stem which generated this result transmitted reference range : 150 - 328 10*3/ ?L. The reference r meredith was not used to interpret this result as normal/abnormal . MPV (test code = 11.2 fL 9.8-13 79740-2) NRBC/100 WBC (test See_Comment [Automat ed code = 6439859436) message] The system which generated this result transmitted reference range : 0.0 - 10.0 /100 WBCs. The refer ence range was not u sed to interpret th is result as normal/abnormal . NRBC x10^3 (test code <0.01 See_Comment [Auto mated = 9412090199) message] The s ystem which generated this result transmitted reference range : 10*3/?L. The reference range was not used to interpret this result as normal/abnormal . GRAN MAT (NEUT) % 76.7 % (test code = 770-8) IMM GRAN % (test code 0.30 % = 8368238115) LYMPH % (test code = 16.4 % 736-9) MONO % (test code = 6.2 % 5905-5) EOS % (test code = 0.2 % 713-8) BASO % (test code = 0.2 % 706-2) GRAN MAT x10^3(ANC) 5.12 10*3/uL 1.99-6.95 (test code = 6811996522) IMM GRAN x10^3 (test <0.03 0-0.06 code = 3046820082) LYMPH x10^3 (test code 1.09 10*3/uL 1.09-3.23 = 731-0) MONO x10^3 (test code 0.41 10*3/uL 0.36-1.02 = 742-7) EOS x10^3 (test code = <0.03 0.06-0.53 L 711-2) BASO x10^3 (test code <0.03 0.01-0.09 = 704-7) Lab Interpretation Abnormal (test code = 25785-4) [facility] WITH [id number] 11:04:00 Test Item Value Reference Range Interpretation [...] RDW-SD (test code = 45.6 fL 38.5-51.6 58078-5) RDW-CV (test code = 14.0 % 12.1-15.4 788-0) PLT (test code = See_Comment L [Automated 777-3) message] The sy stem which generated this result transmitted reference range : 150 - 328 10*3/ ?L. The reference r meredith was not used to interpret this result as normal/abnormal . MPV (test code = 11.2 fL 9.8-13 15645-0) NRBC/100 WBC (test See_Comment [Automat ed code = 3201672878) message] The system which generated this result transmitted reference range : 0.0 - 10.0 /100 WBCs. The refer ence range was not u sed to interpret th is result as normal/abnormal . NRBC x10^3 (test code <0.01 See_Comment [Auto mated = 0519700823) message] The s ystem which generated this result transmitted reference range : 10*3/?L. The reference range was not used to interpret this result as normal/abnormal . GRAN MAT (NEUT) % 52.7 % (test code = 770-8) IMM GRAN % (test code 0.30 % = 5982783033) LYMPH % (test code = 34.6 % 736-9) MONO % (test code = 9.6 % 5905-5) EOS % (test code = 2.2 % 713-8) BASO % (test code = 0.6 % 706-2) GRAN MAT x10^3(ANC) 1.88 10*3/uL 1.99-6.95 L (test code = 9389907019) IMM GRAN x10^3 (test <0.03 0-0.06 code = 1359159935) LYMPH x10^3 (test code 1.23 10*3/uL 1.09-3.23 = 731-0) MONO x10^3 (test code 0.34 10*3/uL 0.36-1.02 L = 742-7) EOS x10^3 (test code = 0.08 10*3/uL 0.06-0.53 711-2) BASO x10^3 (test code <0.03 0.01-0.09 = 704-7) REACT LYMPHS (test Rare code = 1656129994) Lab Interpretation Abnormal (test code = 06814-0) [facility] METABOLIC PANEL (NA, K, CL, CO2, GLUCOSE, BUN, CREATININE, CA)2020-04-03 10:54:00 Test Item Value Reference Range Interpretation Comments NA (test code = 140 mmol/L 135-145 6964890595) K (test code = 3.9 mmol/L 3.5-5 2736993108) CL (test code = 107 mmol/L 98-108 2095386388) CO2 TOTAL (test code = 28 mmol/L 23-31 9484443242) AGAP (test code = 2-16 4987039783) BUN (test code = 4 mg/dL 7-23 L 6754379413) GLUCOSE (test code = 88 mg/dL 70-110 1823168547) CREATININE (test code = 0.96 mg/dL 0.6-1.25 9703649102) CALCIUM (test code = 8.6 mg/dL 8.6-10.6 8490373410) eGFR Calculation mL/min/1.73m2 (Non-) (test code = 4870203904) eGFR Calculation mL/min/1.73m2 () (test code = 3407414255) GILBERTO (test code = GILBERTO) Association of [...] tests). Lab Interpretation Abnormal (test code = 56298-6) [facility] 10:54:00 Test Item Value Reference Range Interpretation Comments MAGNESIUM (test code = 8535114712) 2.0 mg/dL 1.7-2.4 Lab Interpretation (test code = Normal 54239-6) [facility] Screen - ONCE [id number] 23:40:25 Test Item Value Reference Range Interpretation Comments ABO & RH (test code O POSITIVE Performe d at [facility] = 20) Laboratory Serv [facility] [address] [facility] [address]Khij Free: [phone] A No. [id number] IAT (test code = Negative Performed a t [facility] 1185) Laboratory Serv [facility] [address] [facility] s [address]Admj Free: [phone] A No. [id number] [facility] WITH [id number] 11:21:00 Test Item Value Reference Range Interpretation [...] RDW-SD (test code = 45.8 fL 38.5-51.6 89963-3) RDW-CV (test code = 14.2 % 12.1-15.4 788-0) PLT (test code = See_Comment L [Automated 777-3) message] The sy stem which generated this result transmitted reference range : 150 - 328 10*3/ ?L. The reference r meredith was not used to interpret this result as normal/abnormal . MPV (test code = 10.6 fL 9.8-13 01075-5) NRBC/100 WBC (test See_Comment [Automat ed code = 1189960020) message] The system which generated this result transmitted reference range : 0.0 - 10.0 /100 WBCs. The refer ence range was not u sed to interpret th is result as normal/abnormal . NRBC x10^3 (test code <0.01 See_Comment [Auto mated = 1724534475) message] The s ystem which generated this result transmitted reference range : 10*3/?L. The reference range was not used to interpret this result as normal/abnormal . GRAN MAT (NEUT) % 46.4 % (test code = 770-8) IMM GRAN % (test code 0.30 % = 7289182905) LYMPH % (test code = 38.8 % 736-9) MONO % (test code = 10.5 % 5905-5) EOS % (test code = 3.3 % 713-8) BASO % (test code = 0.7 % 706-2) GRAN MAT x10^3(ANC) 1.41 10*3/uL 1.99-6.95 L (test code = 1623406634) IMM GRAN x10^3 (test <0.03 0-0.06 code = 0163588945) LYMPH x10^3 (test code 1.18 10*3/uL 1.09-3.23 = 731-0) MONO x10^3 (test code 0.32 10*3/uL 0.36-1.02 L = 742-7) EOS x10^3 (test code = 0.10 10*3/uL 0.06-0.53 711-2) BASO x10^3 (test code <0.03 0.01-0.09 = 704-7) HYPERSEG NEUTS (test Present See_Comment A [Autom ated code = 765-8) message] The [employer] which generated this result transmitted reference range : (none). The reference range was not used to interpret this result as normal/abnormal . Lab Interpretation Abnormal (test code = 06042-6) [facility] METABOLIC PANEL (NA, K, CL, CO2, GLUCOSE, BUN, CREATININE, CA)2020-04-02 11:05:00 Test Item Value Reference Range Interpretation Comments NA (test code = 139 mmol/L 135-145 1856999238) K (test code = 4.0 mmol/L 3.5-5 8210757652) CL (test code = 108 mmol/L 98-108 6513768007) CO2 TOTAL (test code = 25 mmol/L 23-31 0966141153) AGAP (test code = 2-16 9029219040) BUN (test code = 6 mg/dL 7-23 L 0879602402) GLUCOSE (test code = 99 mg/dL 70-110 6529536975) CREATININE (test code = 0.92 mg/dL 0.6-1.25 3124137499) CALCIUM (test code = 8.3 mg/dL 8.6-10.6 L 6667912793) eGFR Calculation mL/min/1.73m2 (Non-) (test code = 3160896154) eGFR Calculation mL/min/1.73m2 () (test code = 7798683210) GILBERTO (test code = GILBERTO) Association of [...] tests). Lab Interpretation Abnormal (test code = 78863-8) [facility]2020-08-10 11:05:00 Test Item Value Reference Range Interpretation Comments MAGNESIUM (test code = 0222735788) 2.0 mg/dL 1.7-2.4 Lab Interpretation (test code = Normal 52847-3) [facility] (ID NOW RAPID TESTING)2020-04-02 00:43:00 Test Item Value Reference Range Interpretation Comments SARS-CoV-2 Rapid ID NOW Not Detected Not Detected (test code = 25905-9) GILBERTO (test code = GILBERTO) ID NOW COVID-19 Assay is an isothermal nucleic acid amplification test intended for the qualitative detection of nucleic acid from SARS-CoV-2 viral RNA in nasopharyngeal ([employer]) specimens. It is used under Emergency Use [...] indicated. Lab Interpretation Normal (test code = 58644-4) [facility] DistrictUrinalysis2020-08-08 11:39:00 Test Item Value Reference Range Interpretation Comments APPEARANCE (test code = Hazy Clear A 5573305564) COLOR (test code = Yellow Yellow 0179250944) PH (test code = 4.8-8.0 6227749721) SP GRAVITY (test code = 1.003-1.030 H 1742563120) GLU U QUAL (test code = Normal Normal 5737841622) BLOOD (test code = Negative Negative 9554275839) KETONES (test code = 5 mg/dL Negative A 4005993666) PROTEIN (test code = Negative Negative 2887-8) UROBILIN (test code = 2.0 mg/dL Normal A 0561758607) BILIRUBIN (test code = Negative Negative 3251735774) NITRITE (test code = Negative Negative 2436207883) LEUK ROGER (test code = Negative Negative 6674527036) RBC/HPF (test code = See_Comment [Autom ated message] 0846057548) The system [employer] generated this result transmit dain reference range : 0 - 3 HPF. The refe rence range was not u sed to interpret th is result as normal/abnormal . WBC/HPF (test code = See_Comment [Autom ated message] 2255103171) The system [employer] generated this result transmit dain reference range : 0 - 5 HPF. The refe rence range was not u sed to interpret th is result as normal/abnormal . BACTERIA (test code = Negative Negative 1790402439) CA OXALATE (test code = See_Comment H [Au tomated message] 4221720124) The system [employer] generated this result transmit dain reference range : <=1 HPF. The refere nce range was not u sed to interpret th is result as normal/abnormal . Lab Interpretation (test Abnormal code = 67614-5) [facility]CT ABDOMEN PELVIS W [id number] 00:38:37 1. ?Massive air distention of the [...] focal loculated drainable fluidcollection.RL: 460END OF REPORT [facility] (NA, K, CL, CO2, GLUCOSE, BUN, CREATININE, CA)2020-03-30 23:45:00 Test Item Value Reference Range Interpretation Comments NA (test code = 140 mmol/L 135-145 3599402885) K (test code = 4.3 mmol/L 3.5-5 5918708150) CL (test code = 101 mmol/L 98-108 9421200135) CO2 TOTAL (test code = 28 mmol/L 23-31 5770093876) AGAP (test code = 2-16 7530005289) BUN (test code = 24 mg/dL 7-23 H 2857288079) GLUCOSE (test code = 90 mg/dL 70-110 8904260347) CREATININE (test code = 1.29 mg/dL 0.6-1.25 H 4213072763) CALCIUM (test code = 9.4 mg/dL 8.6-10.6 5042900538) eGFR Calculation mL/min/1.73m2 (Non-) (test code = 8422176893) eGFR Calculation mL/min/1.73m2 () (test code = 5907075709) GILBERTO (test code = GILBERTO) Association of [...] tests). Lab Interpretation Abnormal (test code = 58196-3) [facility] 1 [id number] 23:00:46 No evidence for an acute cardiopulmonary [...] SINGLE VIEWCLINICAL HISTORY: Abdominal painORDERING PHYSICIAN: ALEX DODDIQUE: Frontal view of chestCOMPARISON: Chest and abdominal [...] on the March 02, 2020 exam.RL: [id number] [facility] [id number] 22:39:00 Test Item Value Reference Range Interpretation Comments TROPONIN I (test 0.008 ng/mL See_Comment [Automated code = 4145200077) message] The system which generated this result [...] ? Lab Interpretation Normal (test code = 02325-2) [facility] DistrictN-TERMINAL [id number] 22:39:00 Test Item Value Reference Range Interpretation Comments NT-proBNP (test code 42 pg/mL See_Comment [Autom ated = 8612987162) message] The system which generated this result transmitted reference range : <=125. The reference range was not used to interpret this result as normal/abnormal . GILBERTO (test code = GILBERTO) Biotin has been reported to cause a negative bias, interpret results relative to patient's use of biotin. Lab Interpretation Normal (test code = 07471-5) [facility] Function [facility] (ALB, T.PRO, BILI T, BU/BC, ALT, AST, ALK PHOS)2020-03-30 22:27:00 Test Item Value Reference Range Interpretation Comments TOTAL BILI (test code = 3352920430) 0.5 mg/dL 0.1-1.1 BILI UNCON (test code = 1107029371) 0.3 mg/dL 0.1-1.1 BILI CONJ (test code = 6514799230) 0.0 mg/dL 0-0.3 T PROTEIN (test code = 8747572170) 6.7 g/dL 6.3-8.2 ALBUMIN (test code = 5942818834) 4.5 g/dL 3.5-5 ALK PHOS (test code = 3108553561) 57 U/L 34-122 ALTv (test code = 1742-6) 31 U/L 5-50 AST(SGOT) (test code = 2607360227) 38 U/L 13-40 Lab Interpretation (test code = Normal 80834-7) [facility] DistrictLipase [id number] 22:27:00 Test Item Value Reference Range Interpretation Comments LIPASE (test code = 7893056374) 62 U/L 0-220 Lab Interpretation (test code = Normal 95187-9) [facility] DistrictaPTT2020-08-07 22:25:00 Test Item Value Reference Range Interpretation Comments APTT Patient (test code = See_Comment [ Automated message] 3173-2) The system whic h generated this result transmitted ref erence range: 26 - 36 Seconds. The re ference range was not u sed to interpret this result as normal/abnor mal. Lab Interpretation (test Normal code = 01166-7) [facility] DistrictProthrombin Time (PT) / [id number] 22:25:00 Test Item Value Reference Range Interpretation [...] tions. Lab Interpretation (test Normal code = 38929-2) [facility]CBC with [id number] 22:17:00 Test Item Value Reference Range Interpretation Comments WBC (test code = See_Comment [Automated 4090-2) message] The sy stem which generated this result transmitted reference range : 4.20 - 10.70 10*3/?L. The reference range was not used to interpret this result as normal/abnormal . RBC (test code = See_Comment L [Automated 439-8) message] The sy stem which generated this [...] RDW-SD (test code = 46.9 fL 38.5-51.6 50563-7) RDW-CV (test code = 14.3 % 12.1-15.4 788-0) PLT (test code = See_Comment [Automated 777-3) message] The sy stem which generated this result transmitted reference range : 150 - 328 10*3/ ?L. The reference r meredith was not used to interpret this result as normal/abnormal . MPV (test code = 10.7 fL 9.8-13 57272-2) NRBC/100 WBC (test See_Comment [Automat ed code = 2299434912) message] The system which generated this result transmitted reference range : 0.0 - 10.0 /100 WBCs. The refer ence range was not u sed to interpret th is result as normal/abnormal . NRBC x10^3 (test code <0.01 See_Comment [Auto mated = 0116775124) message] The s ystem which generated this result transmitted reference range : 10*3/?L. The reference range was not used to interpret this result as normal/abnormal . GRAN MAT (NEUT) % 51.7 % (test code = 770-8) IMM GRAN % (test code 0.40 % = 3203424968) LYMPH % (test code = 32.8 % 736-9) MONO % (test code = 12.4 % 5905-5) EOS % (test code = 2.1 % 713-8) BASO % (test code = 0.6 % 706-2) GRAN MAT x10^3(ANC) 2.76 10*3/uL 1.99-6.95 (test code = 8887106061) IMM GRAN x10^3 (test <0.03 0-0.06 code = 5876513821) LYMPH x10^3 (test code 1.75 10*3/uL 1.09-3.23 = 731-0) MONO x10^3 (test code 0.66 10*3/uL 0.36-1.02 = 742-7) EOS x10^3 (test code = 0.11 10*3/uL 0.06-0.53 711-2) BASO x10^3 (test code 0.03 10*3/uL 0.01-0.09 = 704-7) Lab Interpretation Abnormal (test code = 10375-1) [facility] with Xdtsbejxujya9315-42-99 10:26:00 Test Item Value Reference Range Interpretation [...] RDW-SD (test code = 46.3 fL 38.5-51.6 20425-2) RDW-CV (test code = 14.2 % 12.1-15.4 788-0) PLT (test code = See_Comment L [Automated 777-3) message] The sy stem which generated this result transmitted reference range : 150 - 328 10*3/ ?L. The reference r meredith was not used to interpret this result as normal/abnormal . MPV (test code = 10.6 fL 9.8-13 92112-0) NRBC/100 WBC (test See_Comment [Automat ed code = 1514951898) message] The system which generated this result transmitted reference range : 0.0 - 10.0 /100 WBCs. The refer ence range was not u sed to interpret th is result as normal/abnormal . NRBC x10^3 (test code <0.01 See_Comment [Auto mated = 1816641336) message] The s ystem which generated this result transmitted reference range : 10*3/?L. The reference range was not used to interpret this result as normal/abnormal . GRAN MAT (NEUT) % 51.3 % (test code = 770-8) IMM GRAN % (test code 0.30 % = 0792188758) LYMPH % (test code = 32.2 % 736-9) MONO % (test code = 12.7 % 5905-5) EOS % (test code = 3.0 % 713-8) BASO % (test code = 0.5 % 706-2) GRAN MAT x10^3(ANC) 1.89 10*3/uL 1.99-6.95 L (test code = 2476832321) IMM GRAN x10^3 (test <0.03 0-0.06 code = 6025356015) LYMPH x10^3 (test code 1.19 10*3/uL 1.09-3.23 = 731-0) MONO x10^3 (test code 0.47 10*3/uL 0.36-1.02 = 742-7) EOS x10^3 (test code = 0.11 10*3/uL 0.06-0.53 711-2) BASO x10^3 (test code <0.03 0.01-0.09 = 704-7) Lab Interpretation Abnormal (test code = 83253-7) [id number] 10:17:00 Test Item Value Reference Range Interpretation Comments MAGNESIUM (test code = 7714318241) 2.0 mg/dL 1.7-2.4 Lab Interpretation (test code = Normal 88146-3) [facility] Metabolic Panel (NA, K, CL, CO2, GLUCOSE, BUN, CREATININE, CA)2020-03-26 10:17:00 Test Item Value Reference Range Interpretation Comments NA (test code = 136 mmol/L 135-145 8790862758) K (test code = 4.6 mmol/L 3.5-5 Slight 8827676663) hemolysis CL (test code = 109 mmol/L 98-108 H 2652444145) CO2 TOTAL (test code 26 mmol/L 23-31 = 9073537082) AGAP (test code = 2-16 L 1816249603) BUN (test code = 22 mg/dL 7-23 Slight 4881673179) hemolysis GLUCOSE (test code = 82 mg/dL 70-110 8640523837) CREATININE (test code 0.88 mg/dL 0.6-1.25 = 6797517207) CALCIUM (test code = 8.1 mg/dL 8.6-10.6 L 7427276731) eGFR Calculation mL/min/1.73m2 (Non-) (test code = 5438897977) eGFR Calculation mL/min/1.73m2 () (test code = 9055510064) GILBERTO (test code = GILBERTO) Association of [...] tests). Lab Interpretation Abnormal (test code = 55095-4) [facility] DistrictLactic Acid Whole [id number] 04:22:00 Test Item Value Reference Range Interpretation Comments LACTIC ACID (test code = 1.52 mmol/L 6640009880) [facility] DistrictPhosphorus [id number] 03:37:00 Test Item Value Reference Range Interpretation Comments PHOSPHORUS (test code = 5112624331) 4.6 mg/dL 2.5-5 Lab Interpretation (test code = Normal 81011-6) [facility]UM2020-08-03 03:37:00 Test Item Value Reference Range Interpretation Comments MAGNESIUM (test code = 7577078830) 2.3 mg/dL 1.7-2.4 Lab Interpretation (test code = Normal 11095-6) [facility]COVID[facility] (ID NOW RAPID TESTING)2020-03-26 02:24:00 Test Item Value Reference Range Interpretation Comments SARS-CoV-2 Rapid ID NOW Not Detected Not Detected (test code = 42023-8) GILBERTO (test code = GILBERTO) ID NOW COVID-19 Assay is an isothermal nucleic acid amplification test intended for the qualitative detection of nucleic acid from SARS-CoV-2 viral RNA in nasopharyngeal ([employer]) specimens. It is used under Emergency Use [...] indicated. Lab Interpretation Normal (test code = 35332-8) [facility] DistrictCT ABDOMEN PELVIS W [id number] 01:33:06 Redemonstration of severe dilatation of the [...] No focal bowel inflammation or wall thickening.. [facility] Metabolic Panel (NA, K, CL, CO2, GLUCOSE, BUN, CREATININE, CA)2020-03-26 00:57:00 Test Item Value Reference Range Interpretation Comments NA (test code = 139 mmol/L 135-145 1479114615) K (test code = 4.4 mmol/L 3.5-5 6484807956) CL (test code = 105 mmol/L 98-108 0429618392) CO2 TOTAL (test code = 29 mmol/L 23-31 5057809515) AGAP (test code = 2-16 9522942034) BUN (test code = 28 mg/dL 7-23 H 3881905552) GLUCOSE (test code = 84 mg/dL 70-110 4160051069) CREATININE (test code = 1.19 mg/dL 0.6-1.25 8415730237) CALCIUM (test code = 8.9 mg/dL 8.6-10.6 6439173558) eGFR Calculation mL/min/1.73m2 (Non-) (test code = 5931361917) eGFR Calculation mL/min/1.73m2 () (test code = 8783561034) GILBERTO (test code = GILBERTO) Association of [...] tests). Lab Interpretation Abnormal (test code = 20581-4) [facility] (ALB, T.PRO, BILI T, BU/BC, ALT, AST, ALK PHOS)2020-03-26 00:57:00 Test Item Value Reference Range Interpretation Comments TOTAL BILI (test code = 1576554922) 0.2 mg/dL 0.1-1.1 BILI UNCON (test code = 1600566293) 0.0 mg/dL 0.1-1.1 L BILI CONJ (test code = 6960908550) 0.0 mg/dL 0-0.3 T PROTEIN (test code = 9876163309) 6.2 g/dL 6.3-8.2 L ALBUMIN (test code = 0044143744) 4.1 g/dL 3.5-5 ALK PHOS (test code = 2507402097) 56 U/L 34-122 ALTv (test code = 1742-6) 24 U/L 5-50 AST(SGOT) (test code = 4772001303) 28 U/L 13-40 Lab Interpretation (test code = Abnormal 40922-2) [facility] DistrictCBC with Otjirupataxe8160-56-65 00:47:00 Test Item Value Reference Range Interpretation [...] RDW-SD (test code = 45.9 fL 38.5-51.6 19950-6) RDW-CV (test code = 14.0 % 12.1-15.4 788-0) PLT (test code = See_Comment [Automated 777-3) message] The sy stem which generated this result transmitted reference range : 150 - 328 10*3/ ?L. The reference r meredith was not used to interpret this result as normal/abnormal . MPV (test code = 10.9 fL 9.8-13 71582-6) NRBC/100 WBC (test See_Comment [Automat ed code = 5672760296) message] The system which generated this result transmitted reference range : 0.0 - 10.0 /100 WBCs. The refer ence range was not u sed to interpret th is result as normal/abnormal . NRBC x10^3 (test code <0.01 See_Comment [Auto mated = [id number]) message] The s ystem which generated this result transmitted reference range : 10*3/?L. The reference range was not used to interpret this result as normal/abnormal . GRAN MAT (NEUT) % 49.8 % (test code = 770-8) IMM GRAN % (test code 0.20 % = [id number]) LYMPH % (test code = 32.0 % 736-9) MONO % (test code = 14.3 % 5905-5) EOS % (test code = 3.0 % 713-8) BASO % (test code = 0.7 % 706-2) GRAN MAT x10^3(ANC) 2.29 10*3/uL 1.99-6.95 (test code = [id number]) IMM GRAN x10^3 (test <0.03 0-0.06 code = [id number]) LYMPH x10^3 (test code 1.47 10*3/uL 1.09-3.23 = 731-0) MONO x10^3 (test code 0.66 10*3/uL 0.36-1.02 = 742-7) EOS x10^3 (test code = 0.14 10*3/uL 0.06-0.53 711-2) BASO x10^3 (test code 0.03 10*3/uL 0.01-0.09 = 704-7) Lab Interpretation Abnormal (test code = 72863-3) [facility] DistrictMagn[facility] [id number] 05:23:00 Test Item Value Reference Range Interpretation Comments MAGNESIUM (test code = 4745839065) 2.1 mg/dL 1.7-2.4 Lab Interpretation (test code = Normal 16247-3) [facility]COVID[facility] (ID NOW RAPID TESTING)2020-03-03 04:45:00 Test Item Value Reference Range Interpretation Comments SARS-CoV-2 Rapid ID NOW Not Detected Not Detected (test code = 35779-0) GILBERTO (test code = GILBERTO) ID NOW COVID-19 Assay is an isothermal nucleic acid amplification test intended for the qualitative detection of nucleic acid from SARS-CoV-2 viral RNA in nasopharyngeal (HOUSING GRANT ANALYST) specimens. It is used under Emergency Use [...] indicated. Lab Interpretation Normal (test code = 32912-5) [facility] DistrictProthrombin Time / [id number] 04:40:00 Test Item Value Reference Range Interpretation Comments PROTIME PATIENT (test See_Comment [Auto mated message] code = 5964-2) The system [employer] generated this result transmitted ref erence range: 10.1 - 1 2.6 Seconds. The re ference range was not u sed to interpret this result as normal/abnor mal. INR (test code = 6301-6) Nor mal INR <1.1; Warfarin Therap eutic range 2.0 to 3. 0 or 2.5 to 3.5, dep ending upon the indica tions. Lab Interpretation (test Normal code = 52935-0) [facility] DistrictaPTT2020-07-11 04:40:00 Test Item Value Reference Range Interpretation Comments APTT Patient (test code = See_Comment [ Automated message] 3173-2) The system [employer] h generated this result transmitted ref erence range: 26 - 36 Seconds. The re ference range was not u sed to interpret this result as normal/abnor mal. Lab Interpretation (test Normal code = 76380-5) [facility] DistrictPhosphorus [id number] 04:31:00 Test Item Value Reference Range Interpretation Comments PHOSPHORUS (test code = 4652694736) 4.0 mg/dL 2.5-5 Lab Interpretation (test code = Normal 60328-9) [facility] DistrictXR ABDOMEN ACUTE [id number] 02:54:09 Impression: No radiographic evidence for acute cardiopulmonary disease. No radiographic evidence forpneumoperitoneum. Marked gaseous distention of predominantly large bowel loops in the abdomenand pelvis, similar to prior CT of 02/26/2020. On that CT, there was atransition in the distal descending colon, without mass lesion or definitesigmoid volvulus appreciated. RL: 460 AFC: 19563 Indication: Diffuse abdominal pain, obstructionComparison: CT the [...] lesion or definitesigmoid volvulus appreciated. RL: 460AFC: [id number] signed by Angeli Carrillo MD, PhD at 03/02/2020 9:54 PM [facility] DistrictUrinalysis2020-07-11 01:50:00 Test Item Value Reference Range Interpretation Comments APPEARANCE (test code = Hazy Clear A 0976733280) COLOR (test code = Tahira Yellow A 9449521397) PH (test code = 4.8-8.0 1881173210) SP GRAVITY (test code = 1.003-1.030 9424886079) GLU U QUAL (test code = Normal Normal 0943745284) BLOOD (test code = Negative Negative 4506314004) KETONES (test code = 5 mg/dL Negative A 3981513222) PROTEIN (test code = Negative Negative 2887-8) UROBILIN (test code = 2.0 mg/dL Normal A 2338361804) BILIRUBIN (test code = Negative Negative 5380483101) NITRITE (test code = Negative Negative 8899962951) LEUK ROGER (test code = Negative Negative 8364657757) RBC/HPF (test code = See_Comment [Autom ated message] 1291546020) The system [employer] generated this result transmit dain reference range : 0 - 3 HPF. The refe rence range was not u sed to interpret th is result as normal/abnormal . WBC/HPF (test code = See_Comment [Autom ated message] 7849727275) The system [employer] generated this result transmit dain reference range : 0 - 5 HPF. The refe rence range was not u sed to interpret th is result as normal/abnormal . BACTERIA (test code = Negative Negative 3675245452) MUCOUS (test code = Slight Negative LPF A 8629546504) SQ EPITH (test code = <1 See_Comment [Auto mated message] 6574160396) The system [employer] generated this result transmit dain reference range : <=2 HPF. The refere nce range was not u sed to interpret th is result as normal/abnormal . CA OXALATE (test code = See_Comment H [Au tomated message] 7451356748) The system [employer] generated this result transmit dain reference range : <=1 HPF. The refere nce range was not u sed to interpret th is result as normal/abnormal . SPERM (test code = See_Comment [Automat ed message] 9758541738) The system [employer] generated this result transmit dain reference range : <=1 HPF. The refere nce range was not u sed to interpret th is result as normal/abnormal . Lab Interpretation (test Abnormal code = 93588-8) [facility] (NA, K, CL, CO2, GLUCOSE, BUN, CREATININE, CA)2020-03-03 01:44:00 Test Item Value Reference Range Interpretation Comments NA (test code = 140 mmol/L 135-145 0840846709) K (test code = 4.1 mmol/L 3.5-5 7069920244) CL (test code = 106 mmol/L 98-108 3249409332) CO2 TOTAL (test code = 25 mmol/L 23-31 8631941929) AGAP (test code = 2-16 6552754420) BUN (test code = 17 mg/dL 7-23 2016237550) GLUCOSE (test code = 91 mg/dL 70-110 8348126388) CREATININE (test code 1.13 mg/dL 0.6-1.25 = 6495830796) CALCIUM (test code = 9.0 mg/dL 8.6-10.6 7582722097) eGFR Calculation mL/min/1.73m2 (Non-) (test code = 5409693006) eGFR Calculation mL/min/1.73m2 () (test code = 9645834793) GILBERTO (test code = GILBERTO) Association of [...] or urine or abnormalities in imaging tests). [facility] DistrictHepatic Function Panel (ALB, T.PRO, BILI T, BU/BC, ALT, AST, ALK PHOS)2020-03-03 01:44:00 Test Item Value Reference Range Interpretation Comments TOTAL BILI (test code = 6117094989) 0.4 mg/dL 0.1-1.1 BILI UNCON (test code = 2232462313) 0.4 mg/dL 0.1-1.1 BILI CONJ (test code = 7996094237) 0.0 mg/dL 0-0.3 T PROTEIN (test code = 7537500142) 6.3 g/dL 6.3-8.2 ALBUMIN (test code = 2831057043) 4.2 g/dL 3.5-5 ALK PHOS (test code = 4665379764) 43 U/L 34-122 ALTv (test code = 1742-6) 20 U/L 5-50 AST(SGOT) (test code = 7374596437) 26 U/L 13-40 Lab Interpretation (test code = Normal 14078-7) [facility] WITH [id number] 01:37:00 Test Item Value Reference Range Interpretation Comments WBC (test code = See_Comment [Automated 5990-2) message] The sy stem which generated this result transmitted reference range : 4.20 - 10.70 10*3/?L. The reference range was not used to interpret this result as normal/abnormal . RBC (test code = See_Comment L [Automated 246-8) message] The sy stem which generated this [...] RDW-SD (test code = 45.0 fL 38.5-51.6 95781-3) RDW-CV (test code = 13.7 % 12.1-15.4 788-0) PLT (test code = See_Comment [Automated 317-3) message] The sy stem which generated this result transmitted reference range : 150 - 328 10*3/ ?L. The reference r meredith was not used to interpret this result as normal/abnormal . MPV (test code = 11.3 fL 9.8-13 65433-2) NRBC/100 WBC (test See_Comment [Automat ed code = 7127628646) message] The system which generated this result transmitted reference range : 0.0 - 10.0 /100 WBCs. The refer ence range was not u sed to interpret th is result as normal/abnormal . NRBC x10^3 (test code <0.01 See_Comment [Auto mated = 3865873350) message] The s ystem which generated this result transmitted reference range : 10*3/?L. The reference range was not used to interpret this result as normal/abnormal . GRAN MAT (NEUT) % 53.2 % (test code = 770-8) IMM GRAN % (test code 0.20 % = 9752896048) LYMPH % (test code = 34.5 % 736-9) MONO % (test code = 9.7 % 5905-5) EOS % (test code = 1.8 % 713-8) BASO % (test code = 0.6 % 706-2) GRAN MAT x10^3(ANC) 2.69 10*3/uL 1.99-6.95 (test code = 9197345674) IMM GRAN x10^3 (test <0.03 0-0.06 code = 2804574359) LYMPH x10^3 (test code 1.74 10*3/uL 1.09-3.23 = 731-0) MONO x10^3 (test code 0.49 10*3/uL 0.36-1.02 = 742-7) EOS x10^3 (test code = 0.09 10*3/uL 0.06-0.53 711-2) BASO x10^3 (test code 0.03 10*3/uL 0.01-0.09 = 704-7) Lab Interpretation Abnormal (test code = 08036-4) [facility] DistrictLactic Acid Whole [id number] 01:28:00 Test Item Value Reference Range Interpretation Comments LACTIC ACID (test code = 1.62 mmol/L 5271139031) [facility] DistrictDRUG PANEL 2 [id number] 22:13:00 Test Item Value Reference Range Interpretation Comments AMPHET (test code = Negative Negative 8743334864) LOS U (test code = Negative Negative 3611781098) BENZO U (test code = Negative Negative 1151416242) Cocaine Metabolite (test Negative Negative code = 9047410529) METHADONE (test code = Negative Negative 3477638752) OPIATES (test code = Negative Negative 1705233059) PCP (test code = Negative Negative 4423284266) THC (test code = Negative Negative 3229775035) GILBERTO (test code = GILBERTO) Urine Drug [...] testing). Lab Interpretation (test Normal code = 75016-6) [facility] DistrictTHYROID STIMULATING [id number] 19:02:00 Test Item Value Reference Range Interpretation Comments TSH (test code = See_Comment [Automated message] 8532074617) The system [employer] generated this result transmitted ref erence range: 0.45 - 4 .70 mIU/L. The refe rence range was not u sed to interpret this result as normal/abnor mal. Lab Interpretation (test Normal code = 22543-5) [facility] [id number] 18:49:00 Test Item Value Reference Range Interpretation Comments FREE T3 (test code = 0773903341) 2.56 pg/mL 2.77-5.27 L Lab Interpretation (test code = Abnormal 59020-8) [facility] [id number] 18:49:00 Test Item Value Reference Range Interpretation Comments FREE T4 (test code = See_Comment [Autom ated message] 7734996083) The system [employer] generated this result transmitted ref erence range: 0.78 - 2 .20 ng/dL:. The ref erence range was not u sed to interpret this result as normal/abnor mal. Lab Interpretation (test Normal code = 64352-7) [facility] DistrictCT ABDOMEN PELVIS W [id number] 20:56:47 Persistent marked severe dilatation of the transverse colon and small bowelwithout obstructing massor mural thickening. Additionally, there isgaseous distention and dilatation of the distal bowel. These findings aregrossly unchanged compared to prior CTs. No CT evidence evidence ofvolvulus. Preliminary Report Dictated by Resident: Merritt Fontenot MD., have reviewed this study and agree [...] No focal hepatic lesions. Normal contour. Hepatomegaly, daztchxli05.7 cm, in the craniocaudal dimension. Diffuse hypoattenuation [...] evidence evidence ofvolvulus.Preliminary Report Dictated by Resident: Liz Moreira, Merritt Abad MD., have reviewed this study and agree withthe above report. [facility] DistrictCOVID[facility]19 (ID NOW RAPID TESTING)2020-02-26 07:03:00 Test Item Value Reference Range Interpretation Comments SARS-CoV-2 Rapid ID NOW Not Detected Not Detected (test code = 17305-0) GILBERTO (test code = GILBERTO) ID NOW COVID-19 Assay is an isothermal nucleic acid amplification test intended for the qualitative detection of nucleic acid from SARS-CoV-2 viral RNA in nasopharyngeal (HOUSING [employer] ANALYST) specimens. It is used under Emergency Use [...] indicated. Lab Interpretation Normal (test code = 15036-2) [facility] DistrictXR ABDOMEN ACUTE [id number] 05:00:33 Impression: No radiographic evidence for acute cardiopulmonary disease. Marked gaseous distention ofthe colon, with a relative paucity of gas inthe distal sigmoid colon and rectum. This may reflect pseudoobstruction,but mechanical distal colonic obstruction cannot be excluded. RL: 460 AFC: 68157 Ordering physician: SABI CORTESUIndication: Abdominal distention Comparison: None Findings: AP view [...] in the distal sigmoid colon and rectum. [facility], Radiant Results Inft User - 02/26/2020 12:02 AM CDTOrdering physician: SABI CORTESUIndication: Abdominal distentionComparison: NoneFindi ngs: AP view of [...] distal colonic obstruction cannot be excluded.RL: 460AF: [id number] signed by Angeli Carrillo MD, PhD at 02/26/2020 12:00 [facility] (NA, K, CL, CO2, GLUCOSE, BUN, CREATININE, CA)2020-02-26 04:03:00 Test Item Value Reference Range Interpretation Comments NA (test code = 142 mmol/L 135-145 7283066031) K (test code = 4.1 mmol/L 3.5-5 8820077922) CL (test code = 107 mmol/L 98-108 1166403269) CO2 TOTAL (test code = 29 mmol/L 23-31 8999345231) AGAP (test code = 2-16 8175970050) BUN (test code = 13 mg/dL 7-23 9061326034) GLUCOSE (test code = 82 mg/dL 70-110 7048254783) CREATININE (test code 1.14 mg/dL 0.6-1.25 = 3434499965) CALCIUM (test code = 9.5 mg/dL 8.6-10.6 5373681847) eGFR Calculation mL/min/1.73m2 (Non-) (test code = 1326871478) eGFR Calculation mL/min/1.73m2 () (test code = 6373479139) GILBERTO (test code = GILBERTO) Association of [...] or urine or abnormalities in imaging tests). [facility] DistrictHep[facility] Function Panel (ALB, T.PRO, BILI T, BU/BC, ALT, AST, ALK PHOS)2020-02-26 04:03:00 Test Item Value Reference Range Interpretation Comments TOTAL BILI (test code = 0181051250) 0.5 mg/dL 0.1-1.1 BILI UNCON (test code = 9265167845) 0.5 mg/dL 0.1-1.1 BILI CONJ (test code = 0089308067) 0.0 mg/dL 0-0.3 T PROTEIN (test code = 9422131096) 6.2 g/dL 6.3-8.2 L ALBUMIN (test code = 3049904647) 4.2 g/dL 3.5-5 ALK PHOS (test code = 5367528023) 40 U/L 34-122 ALTv (test code = 1742-6) 20 U/L 5-50 AST(SGOT) (test code = 0636193567) 26 U/L 13-40 Lab Interpretation (test code = Abnormal 94142-1) [facility] DistrictLipase [id number] 04:03:00 Test Item Value Reference Range Interpretation Comments LIPASE (test code = 9529507118) 57 U/L 0-220 Lab Interpretation (test code = Normal 41719-6) [facility] DistrictLactic Acid Whole [id number] 03:52:00 Test Item Value Reference Range Interpretation Comments LACTIC ACID (test code = 1.66 mmol/L 0.5-2.2 7534726154) [facility] DistrictCBC WITH [id number] 03:47:00 Test Item Value Reference Range Interpretation Comments WBC (test code = See_Comment [Automated 7090-2) message] The sy stem which generated this result transmitted reference range : 4.20 - 10.70 10*3/?L. The reference range was not used to interpret this result as normal/abnormal . RBC (test code = See_Comment L [Automated 189-8) message] The sy stem which generated this [...] RDW-SD (test code = 45.1 fL 38.5-51.6 50396-7) RDW-CV (test code = 13.7 % 12.1-15.4 788-0) PLT (test code = See_Comment [Automated 777-3) message] The sy stem which generated this result transmitted reference range : 150 - 328 10*3/ ?L. The reference r meredith was not used to interpret this result as normal/abnormal . MPV (test code = 10.7 fL 9.8-13 21202-3) NRBC/100 WBC (test See_Comment [Automat ed code = 1592533374) message] The system which generated this result transmitted reference range : 0.0 - 10.0 /100 WBCs. The refer ence range was not u sed to interpret th is result as normal/abnormal . NRBC x10^3 (test code <0.01 See_Comment [Auto mated = 7672967000) message] The s ystem which generated this result transmitted reference range : 10*3/?L. The reference range was not used to interpret this result as normal/abnormal . GRAN MAT (NEUT) % 63.1 % (test code = 770-8) IMM GRAN % (test code 0.40 % = 7258177697) LYMPH % (test code = 25.1 % 736-9) MONO % (test code = 9.9 % 5905-5) EOS % (test code = 1.1 % 713-8) BASO % (test code = 0.4 % 706-2) GRAN MAT x10^3(ANC) 3.52 10*3/uL 1.99-6.95 (test code = 5584506142) IMM GRAN x10^3 (test <0.03 0-0.06 code = 3961578209) LYMPH x10^3 (test code 1.40 10*3/uL 1.09-3.23 = 731-0) MONO x10^3 (test code 0.55 10*3/uL 0.36-1.02 = 742-7) EOS x10^3 (test code = 0.06 10*3/uL 0.06-0.53 711-2) BASO x10^3 (test code <0.03 0.01-0.09 = 704-7) Lab Interpretation Abnormal (test code = 16548-0) [facility]- XR ABDOMEN 1 [id number] 12:53:00 Name: DORA JOSEPH [facility] : 1970 Age/S: 50 / M [address] Unit #: [id number] Loc: [place] [address] 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 HUMAN RESOURCE ADVISER Acct: [id number] Dis Date: Status: ADM IN PHONE #: [phone] Exam Date: 02/25/2020 1036 FAX #: Reason: abdominal distention EXAMS: CPT: [id number] XR ABDOMEN 1 V 26118 Fluoro Time: DAP (Gy m2): Air Kerma [...] the left lower quadrant (not previously seen) if9395 Reported and signed by: Sol Paige MD CC: Andre Solano; Mark Perea MD PAGE 1 Signed Report Name: DORA JOSEPH [facility] : 1970 Age/S: 50 / M [address] #: [id number] Loc: [place] [address] 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 Acct: [id number] Dis Date: Status: ADM IN PHONE #: [phone] Exam Date: 02/25/2020 1036 FAX #: Reason: abdominal distention EXAMS: CPT: [id number] XR ABDOMEN 1 V 77153 Fluoro Time: DAP (Gy m2): Air Kerma (mGy): <Continued&gt ; Technologist: Nichole Dill RT(R) Trnscb Date/Time: 02/25/2020 (0639) DelorisM1 Orig Print D/T: S: 02/25/2020 (5159) PAGE 2 Signed Report COMPREHENSIVE METABOLIC [id number] 08:20:00 Test Item Value Reference Range Interpretation [...] 50-136 L TOTAL (test code = ALKP) [id number] 08:20:00 Test Item Value Reference Range Interpretation Comments MAGNESIUM (test code = MAG) 2.2 MG/DL 1.8-2.4 N THYROID STIMULATING [id number] 08:20:00 Test Item Value Reference Range Interpretation Comments THYROID STIMULATING HORMONE 5.430 mcIU/ML 0.340-4.820 H (test code = TSH) CBC W/AUTO [id number] 07:55:00 Test Item Value Reference Range Interpretation [...] N NRBC#) UA RFLX MICR CULT IF [id number] 12:29:00 Test Item Value Reference Range Interpretation [...] culture: Suprapubic PainUA RFLX MICR CULT IF [id number] 12:29:00 Test Item Value Reference Range Interpretation [...] for culture: Suprapubic PainCOVID 19 Asymptomatic IH [id number] 22:09:00 Test Item Value Reference Range Interpretation [...] tent with COVID-19. - CT ABD PELVIS W/[id number] 21:10:00 Name: DORA JOSEPH [facility] : 1970 Age/S: 50 / M [address] #: [id number] Loc: [place] [address] Phys: Evin Castellanos MD Acct: [id number] Dis Date: Status: REG ER PHONE #: [phone] Exam Date: 02/23/20202047 FAX #: Reason: diffuse abdomen pain and distention EXAMS: CPT: [id number] CT ABD PELVIS W/CONT 73190 EXAM: - CT ABD PELVIS W/CONT LOCATION: H61 CLINICAL HISTORY/INDICATION: diffuse abdomen pain and distention COMPARISON: Multiple prior KUBs are intact to 01/06/2020, most recent dated 02/19/2020. Abdominal CT/. TECHNIQUE: Axial CT images of the abdomenand pelvis were obtained from the diaphragm to the lesser trochanter with IV contrast administration. Coronal and sagittal reformations were reconstructed from the axial data set. Postcontrast images we re acquired in the portal venous phase This [...] 1 Signed Report (CONTINUED) Name: DORA JOSEPH [facility] : 1970 Age/S: 50 / M [address] Unit #: [id number] Loc: [place] [address] Phys: Evin Castellanos MD Acct: [id number] Dis Date: Status: REG ER PHONE #: [phone] Date: 02/23/20202047 FAX #: Reason: diffuse abdomen pain and distention EXAMS: CPT: [id number] ABD PELVIS W/CONT 50387 <Continued> CT. No bowel wall thickening or [...] José M.D. CC: Susana Meza NP; Carl Flowers Technologist:RT Reena(R)(CT)(MRI) CTDI: DLP: Trnscb Date/Time: 02/23/2020 (2109) GarettTH15 Orig Print D/T: S: 02/23/2020 (2112) PAGE 2 Signed Report- XR CHEST 1 [id number] 21:03:00 Name: DORA JOSEPH [facility] : 1970 Age/S: 50 / M [address] #: [id number] Loc: [place] [address] Phys: Evin Castellanos MD Acct: [id number] Dis Date: Status: REG ER PHONE #: [phone] Exam Date: 02/23/20202055 FAX #: Reason: Code Sepsis EXAMS: CPT: [id number] XR CHEST 1 V 17760 Fluoro Time: DAP (Gy m2): Air Kerma [...] by: Monica Quijano MD CC: Susana Meza HOUSING GRANT ANALYST; Carl Luevano MD PAGE1 Signed Report [facility]: [facility] 1970 Age/S: 50 / M [address] Unit #: [id number] Loc: [place] [address] Phys: Evin Castellanos MD Acct: [id number] Dis Date: Status: REG ER PHONE #: [phone] Exam Date: 02/23/20202055 FAX #: Reason: Code Sepsis EXAMS: CPT: [id number] XR CHEST 1 V 91146 Fluoro Time: DAP (Gy m2): Air Kerma (mGy): <Continued> Technologist: Rudy Zuniga, RT(R)(CT)(MRI) Trnscb Date/Time: 02/23/2020 (2102) GarettCLW Orig Print D/T: S: 02/23/2020 (2106) PAGE [...] 8.5-10.1 N Completed by Nursing: NOHEPATIC FUNCTION [id number] 20:02:00 Test Item Value Reference Range Interpretation [...] N code = ALKP) Completed by Nursing: [id number] 20:02:00 Test Item Value Reference Range Interpretation Comments LIPASE (test code = LIP) 97 Unit/L 114-286 L Completed by Nursing: [id number]-G8380-71-02 20:02:00 Test Item Value Reference Range Interpretation [...] brittani yby method. Completed by Nursing: NOLACTIC [id number] 19:59:00 Test Item Value Reference Range Interpretation Comments LACTIC ACID (test code = LACT) 1.2 mmol/L 0.4-2.0 N CBC W/AUTO [id number] 19:46:00 Test Item Value Reference Range Interpretation [...] CRITERIA = MDIFF) - XR ABDOMEN 2 [id number] 06:22:00 Name: DORA JOSEPH [facility] : 1970 Age/S: 50 / M [address] #: [id number] Loc: [place] [address] Phys: Leonidas Robertson MD Acct: [id number] Dis Date: Status: ADM IN PHONE #: [phone] Exam Date: 02/19/2020 0440 FAX #: Reason: megacolon EXAMS: CPT: [id number] XR ABDOMEN 2 V 12449 Fluoro Time: DAP (Gy m2): Air Kerma [...] PAGE 1 Signed Report Name: DORA JOSEPH [facility] : 1970 Age/S: 50 / M [address] #: [id number] Loc: [place] [address] Phys: Leonidas Robertson MD Acct: [id number] Dis Date: Status: ADM IN PHONE #: [phone] Exam Date: 02/19/2020 0440 FAX #: Reason: megacolon EXAMS: CPT: [id number] XR ABDOMEN 2 V 78808 Fluoro Time: DAP (Gy m2): Air Kerma (mGy): <Continued> Technologist: Carrie Barnett, RT(R)(CT) Trnscb Date/Time: 02/19/2020 (06) t.SDR.AL7 Orig Print D/T: S: 02/19/2020 (0625) PAGE 2 Signed ReportBASIC METABOLIC [id number] 05:52:00 Test Item Value Reference Range Interpretation [...] CA) 8.5 MG/DL 8.5-10.1 N CBC W/AUTO [id number] 05:40:00 Test Item Value Reference Range Interpretation [...] NO DIFF/SCN CRITERIA = MDIFF) BASIC METABOLIC [id number] 06:52:00 Test Item Value Reference Range Interpretation [...] CA) 8.3 MG/DL 8.5-10.1 L CBC W/AUTO [id number] 06:39:00 Test Item Value Reference Range Interpretation [...] DIFF/SCN CRITERIA = MDIFF) Coronavirus 2018 nCoV Kilshsv6046-46-29 05:35:00 Test Item Value Reference Range Interpretation Comments Coronavirus 2019 nCoV Negative NEGATIVE Per ma nufacturer, Bedside [...] NA (test code = 139 mmol/L 135-145 8191524867) K (test code = 4.3 mmol/L 3.5-5 2283756015) CL (test code = 105 mmol/L 98-108 1796874287) CO2 TOTAL (test code = 30 mmol/L 23-31 1468502406) AGAP (test code = 2-16 7039322430) BUN (test code = 6 mg/dL 7-23 L 3792437726) GLUCOSE (test code = 94 mg/dL 70-110 0166094760) CREATININE (test code = 1.07 mg/dL 0.6-1.25 8591322385) CALCIUM (test code = 9.3 mg/dL 8.6-10.6 4538520718) eGFR Calculation mL/min/1.73m2 (Non-) (test code = 0164497101) eGFR Calculation mL/min/1.73m2 () (test code = 0423880048) GILBERTO (test code = GILBERTO) Association of [...] tests). Lab Interpretation Abnormal (test code = 91069-5) [facility] Test Item Value Reference Range Interpretation Comments MAGNESIUM (test code = 1776241502) 2.0 mg/dL 1.7-2.4 Lab Interpretation (test code = Normal 47735-5) [facility] [id number] 17:02:411. Interval worsening of air distended loops [...] with cecum measuring up to 15 cm. [facility] DistrictCBC WITH [id number] 07:20:00 Test Item Value Reference Range Interpretation Comments WBC (test code = See_Comment L [Automated 3264-2) message] The sy stem which generated this result transmitted reference range : 4.20 - 10.70 10*3/?L. The reference range was not used to interpret this result as normal/abnormal . RBC (test code = See_Comment [Automated 499-8) message] The sy stem which [...] RDW-SD (test code = 46.5 fL 38.5-51.6 83886-4) RDW-CV (test code = 13.9 % 12.1-15.4 788-0) PLT (test code = See_Comment L [Automated 777-3) message] The sy stem which generated this result transmitted reference range : 150 - 328 10*3/ ?L. The reference r meredith was not used to interpret this result as normal/abnormal . MPV (test code = 10.7 fL 9.8-13 06438-3) NRBC/100 WBC (test See_Comment [Automat ed code = 1443695456) message] The system which generated this result transmitted reference range : 0.0 - 10.0 /100 WBCs. The refer ence range was not u sed to interpret th is result as normal/abnormal . NRBC x10^3 (test code <0.01 See_Comment [Auto mated = 2433109535) message] The s ystem which generated this result transmitted reference range : 10*3/?L. The reference range was not used to interpret this result as normal/abnormal . GRAN MAT (NEUT) % 48.6 % (test code = 770-8) IMM GRAN % (test code 0.20 % = 9848196586) LYMPH % (test code = 39.6 % 736-9) MONO % (test code = 8.4 % 5905-5) EOS % (test code = 2.7 % 713-8) BASO % (test code = 0.5 % 706-2) GRAN MAT x10^3(ANC) 1.96 10*3/uL 1.99-6.95 L (test code = 2507107568) IMM GRAN x10^3 (test <0.03 0-0.06 code = 1399602489) LYMPH x10^3 (test code 1.60 10*3/uL 1.09-3.23 = 731-0) MONO x10^3 (test code 0.34 10*3/uL 0.36-1.02 L = 742-7) EOS x10^3 (test code = 0.11 10*3/uL 0.06-0.53 711-2) BASO x10^3 (test code <0.03 0.01-0.09 = 704-7) Lab Interpretation Abnormal (test code = 55108-0) [facility] METABOLIC PANEL (NA, K, CL, CO2, GLUCOSE, BUN, CREATININE, CA)2020-01-31 06:32:00 Test Item Value Reference Range Interpretation Comments NA (test code = 138 mmol/L 135-145 6091674630) K (test code = 4.2 mmol/L 3.5-5 Slight 0304680299) hemolysis CL (test code = 108 mmol/L 98-108 4631073635) CO2 TOTAL (test code 22 mmol/L 23-31 L = 4097173503) AGAP (test code = 2-16 9195057994) BUN (test code = 7 mg/dL 7-23 Slight 1396004273) hemolysis GLUCOSE (test code = 92 mg/dL 70-110 1421143633) CREATININE (test code 1.02 mg/dL 0.6-1.25 = 5316774271) CALCIUM (test code = 8.9 mg/dL 8.6-10.6 0159061914) eGFR Calculation mL/min/1.73m2 (Non-) (test code = 5819008731) eGFR Calculation mL/min/1.73m2 () (test code = 7208885256) GILBERTO (test code = GILBERTO) Association of [...] tests). Lab Interpretation Abnormal (test code = 41775-1) [facility] WITH [id number] 11:00:00 Test Item Value Reference Range Interpretation [...] RDW-SD (test code = 48.7 fL 38.5-51.6 61969-1) RDW-CV (test code = 14.4 % 12.1-15.4 788-0) PLT (test code = See_Comment L [Automated 777-3) message] The sy stem which generated this result transmitted reference range : 150 - 328 10*3/ ?L. The reference r meredith was not used to interpret this result as normal/abnormal . MPV (test code = 10.7 fL 9.8-13 27406-5) IPF % (test code = 5.1 % 1.2-10.7 Platelet count 8026481517) measured by fluorescence method. NRBC/100 WBC (test See_Comment [Automat ed code = 9936875912) message] The system which generated this result transmitted reference range : 0.0 - 10.0 /100 WBCs. The refer ence range was not u sed to interpret th is result as normal/abnormal . NRBC x10^3 (test code <0.01 See_Comment [Auto mated = 0414449486) message] The s ystem which generated this result transmitted reference range : 10*3/?L. The reference range was not used to interpret this result as normal/abnormal . SEG % (test code = 53 % 33-76 33498-5) BAND % (test code = 1 % 0-1 39112-3) LYMPH % (test code = 39 % 14-54 17435-6) MONO % (test code = 4 % 0-4 87293-8) EOS % (test code = 3 % 0-3 92980-1) ANC (test code = 1.93 10*3/uL 1.99-6.95 L 6599261106) Lab Interpretation Abnormal (test code = 81570-4) [facility] Metabolic Panel (NA, K, CL, CO2, GLUCOSE, BUN, CREATININE, CA)2020-01-29 10:23:00 Test Item Value Reference Range Interpretation Comments NA (test code = 138 mmol/L 135-145 3757474972) K (test code = 4.0 mmol/L 3.5-5 9733633696) CL (test code = 109 mmol/L 98-108 H 3465579223) CO2 TOTAL (test code = 27 mmol/L 23-31 4653360538) AGAP (test code = 2-16 6540111906) BUN (test code = 16 mg/dL 7-23 1742647938) GLUCOSE (test code = 81 mg/dL 70-110 9912000677) CREATININE (test code = 1.14 mg/dL 0.6-1.25 4571480034) CALCIUM (test code = 8.6 mg/dL 8.6-10.6 0371410852) eGFR Calculation mL/min/1.73m2 (Non-) (test code = 2494008242) eGFR Calculation mL/min/1.73m2 () (test code = 7278224470) GILBERTO (test code = GILBERTO) Association of [...] tests). Lab Interpretation Abnormal (test code = 82189-4) [facility] [id number] 04:27:00 Test Item Value Reference Range Interpretation Comments SARS-CoV-2 Rapid ID NOW Not Detected Not Detected (test code = 74475-1) GILBERTO (test code = GILBERTO) ID NOW COVID-19 Assay is an isothermal nucleic acid amplification test intended for the qualitative detection of nucleic acid from SARS-CoV-2 viral RNA in nasopharyngeal ([employer]) specimens. It is used under Emergency Use [...] indicated. Lab Interpretation Normal (test code = 17651-1) [facility] Whole Egdfs9822-74-72 04:10:00 Test Item Value Reference Range Interpretation Comments LACTIC ACID (test code = 1.74 mmol/L 0.5-2.2 7816571162) [facility] (ID NOW RAPID TESTING)2020-01-29 02:17:00 Test Item Value Reference Range Interpretation Comments SARS-CoV-2 Rapid ID NOW Not Detected Not Detected (test code = 88411-7) GILBERTO (test code = GILBERTO) ID NOW COVID-19 Assay is an isothermal nucleic acid amplification test intended for the qualitative detection of nucleic acid from SARS-CoV-2 viral RNA in nasopharyngeal ([employer]) specimens. It is used under Emergency Use [...] indicated. Lab Interpretation Normal (test code = 43165-4) [facility] District[facility]inalysis2020-06-07 02:14:00 Test Item Value Reference Range Interpretation Comments APPEARANCE (test code = Clear Clear 5492188898) COLOR (test code = Dark Yellow Yellow A 8318881436) PH (test code = 4.8-8.0 3487312352) SP GRAVITY (test code = 1.003-1.030 H 6121804868) GLU U QUAL (test code = Normal Normal 4596337219) BLOOD (test code = 1+ Negative A 8960945562) KETONES (test code = 5 mg/dL Negative A 3762545357) PROTEIN (test code = Negative Negative 2887-8) UROBILIN (test code = Normal Normal 5486989580) BILIRUBIN (test code = Negative Negative 6082910302) NITRITE (test code = Negative Negative 7924411948) LEUK ROGER (test code = Negative Negative 8540597918) RBC/HPF (test code = See_Comment H [Autom ated 1803414290) message] The sy stem which generated this result transmitted reference range : 0 - 3 HPF. The reference range was not used to interpret this result as normal/abnormal . WBC/HPF (test code = See_Comment [Autom ated 4801094981) message] The sy stem which generated this result transmitted reference range : 0 - 5 HPF. The reference range was not used to interpret this result as normal/abnormal . BACTERIA (test code = Moderate Negative A 1298979278) MUCOUS (test code = Slight Negative LPF A 3014297859) AMORPHOUS (test code = Rare Rare HPF 5845392735) SQ EPITH (test code = <1 See_Comment [Auto mated 2161971548) message] The sy stem which generated this result transmitted reference range : <=2 HPF. The reference range was not used to interpret this result as normal/abnormal . CA OXALATE (test code = See_Comment H [Au tomated 1570513044) message] The sy stem which generated this result transmitted reference range : <=1 HPF. The reference range was not used to interpret this result as normal/abnormal . HYAL CAST (test code = See_Comment H [Aut omated 6070417214) message] The sy stem which generated this result transmitted reference range : <=2 LPF. The reference range was not used to interpret this result as normal/abnormal . ASCORBIC ACID (test Negative code = 4845217379) Lab Interpretation Abnormal (test code = 09989-4) [facility] PELVIS W UANCPLFI0108-11-05 00:25:08Persistent marked and severe dilatation of the [...] is essentially stable compared to prior examination. [facility] (NA, K, CL, CO2, GLUCOSE, BUN, CREATININE, CA)2020-01-28 23:38:00 Test Item Value Reference Range Interpretation Comments NA (test code = 143 mmol/L 135-145 6406791563) K (test code = 4.2 mmol/L 3.5-5 7551737410) CL (test code = 111 mmol/L 98-108 H 2631194455) CO2 TOTAL (test code = 28 mmol/L 23-31 0216151198) AGAP (test code = 2-16 2420793114) BUN (test code = 15 mg/dL 7-23 6618952152) GLUCOSE (test code = 68 mg/dL 70-110 L 0150924163) CREATININE (test code = 1.32 mg/dL 0.6-1.25 H 3733673964) CALCIUM (test code = 9.0 mg/dL 8.6-10.6 1984806242) eGFR Calculation mL/min/1.73m2 (Non-) (test code = 9499681394) eGFR Calculation mL/min/1.73m2 () (test code = 5198241683) GILBERTO (test code = GILBERTO) Association of [...] tests). Lab Interpretation Abnormal (test code = 47555-6) [facility] (ALB, T.PRO, BILI T, BU/BC, ALT, AST, ALK PHOS)2020-01-28 23:38:00 Test Item Value Reference Range Interpretation Comments TOTAL BILI (test code = 0338222022) 0.6 mg/dL 0.1-1.1 BILI UNCON (test code = 3886991345) 0.6 mg/dL 0.1-1.1 BILI CONJ (test code = 3885152233) 0.0 mg/dL 0-0.3 T PROTEIN (test code = 4327558070) 5.7 g/dL 6.3-8.2 L ALBUMIN (test code = 0379742238) 3.8 g/dL 3.5-5 ALK PHOS (test code = 7219152523) 37 U/L 34-122 ALTv (test code = 1742-6) 23 U/L 5-50 AST(SGOT) (test code = 4025385361) 25 U/L 13-40 Lab Interpretation (test code = Abnormal 84987-1) [facility] DistrictLipase Tbjgv6228-37-13 23:38:00 Test Item Value Reference Range Interpretation Comments LIPASE (test code = 7146095366) 62 U/L 0-220 Lab Interpretation (test code = Normal 55968-9) [facility] DistrictCBC WITH [id number] 23:29:00 Test Item Value Reference Range Interpretation Comments WBC (test code = See_Comment [Automated 4290-2) message] The sy stem which generated this result transmitted reference range : 4.20 - 10.70 10*3/?L. The reference range was not used to interpret this result as normal/abnormal . RBC (test code = See_Comment L [Automated 179-8) message] The sy stem which generated this [...] RDW-SD (test code = 47.5 fL 38.5-51.6 02555-8) RDW-CV (test code = 14.3 % 12.1-15.4 788-0) PLT (test code = See_Comment [Automated 777-3) message] The sy stem which generated this result transmitted reference range : 150 - 328 10*3/ ?L. The reference r meredith was not used to interpret this result as normal/abnormal . MPV (test code = 10.6 fL 9.8-13 91068-8) NRBC/100 WBC (test See_Comment [Automat ed code = 7554601314) message] The system which generated this result transmitted reference range : 0.0 - 10.0 /100 WBCs. The refer ence range was not u sed to interpret th is result as normal/abnormal . NRBC x10^3 (test code <0.01 See_Comment [Auto mated = 4193377595) message] The s ystem which generated this result transmitted reference range : 10*3/?L. The reference range was not used to interpret this result as normal/abnormal . GRAN MAT (NEUT) % 50.1 % (test code = 770-8) IMM GRAN % (test code 0.20 % = 2143675013) LYMPH % (test code = 34.7 % 736-9) MONO % (test code = 12.5 % 5905-5) EOS % (test code = 1.8 % 713-8) BASO % (test code = 0.7 % 706-2) GRAN MAT x10^3(ANC) 2.28 10*3/uL 1.99-6.95 (test code = 9643694003) IMM GRAN x10^3 (test <0.03 0-0.06 code = 0525147351) LYMPH x10^3 (test code 1.58 10*3/uL 1.09-3.23 = 731-0) MONO x10^3 (test code 0.57 10*3/uL 0.36-1.02 = 742-7) EOS x10^3 (test code = 0.08 10*3/uL 0.06-0.53 711-2) BASO x10^3 (test code 0.03 10*3/uL 0.01-0.09 = 704-7) Lab Interpretation Abnormal (test code = 23165-7) [facility] (NA, K, CL, CO2, GLUCOSE, BUN, CREATININE, CA)2020-01-26 18:34:00 Test Item Value Reference Range Interpretation Comments NA (test code = 138 mmol/L 135-145 2810245832) K (test code = 3.7 mmol/L 3.5-5 2118543174) CL (test code = 108 mmol/L 98-108 7817154636) CO2 TOTAL (test code = 25 mmol/L 23-31 3753563117) AGAP (test code = 2-16 8122986777) BUN (test code = 9 mg/dL 7-23 6599746027) GLUCOSE (test code = 107 mg/dL 70-110 1669125678) CREATININE (test code 0.96 mg/dL 0.6-1.25 = 9246223510) CALCIUM (test code = 8.7 mg/dL 8.6-10.6 0923031986) eGFR Calculation mL/min/1.73m2 (Non-) (test code = 3425573203) eGFR Calculation mL/min/1.73m2 () (test code = 2653151652) GILBERTO (test code = GILBERTO) Association of [...] or urine or abnormalities in imaging tests). [facility] DistrictMagnesium Nfpdq6271-84-00 08:33:00 Test Item Value Reference Range Interpretation Comments MAGNESIUM (test code = 1.9 mg/dL 1.7-2.4 Sligh t hemolysis 4784125743) Lab Interpretation (test Normal code = 19449-4) [facility] DistrictXR [id number] 06:18:53 Redemonstration of marked gaseous distention of the transverse anddescending colon. RL: 460 AFC: [id number] Ordering physician: HELENE GRIFFIN INDICATION: Abdominal pain COMPARISON: CT the abdomen and pelvis dated 01/24/2020 FINDINGS:Supine AP views of the abdomen and pelvis. There isredemonstration of marked distention of the transverse and descendingcolon. [facility], Radiant Results Inft User - 01/26/2020 1:20 AM CDTOrdering physician: HELENE GRIFFININDICATION: Abdominal painCOMPARISON: CT the abdomen and pelvis dated 01/24/2020FINDINGS: Supine AP views of the abdomen and pelvis. There isredemonstration of marked distention of the transverse and descendingcolon.IMPRESSIONRedemonstration of marked gaseous distention of the transverse anddescending colon.RL: 460AFC: [id number] signed by Angeli Carrillo MD, PhD at 01/26/2020 1:18 [facility]Un[facility] Phosphorus [id number] 10:11:00 Test Item Value Reference Range Interpretation Comments PHOSPHORUS (test code = 1067219606) 3.9 mg/dL 2.5-5 Lab Interpretation (test code = Normal 12185-3) [facility] (ID NOW RAPID TESTING)2020-01-25 05:12:00 Test Item Value Reference Range Interpretation Comments SARS-CoV-2 Rapid ID NOW Not Detected Not Detected (test code = 31708-4) GILBERTO (test code = GILBERTO) ID NOW COVID-19 Assay is an isothermal nucleic acid amplification test intended for the qualitative detection of nucleic acid from SARS-CoV-2 viral RNA in nasopharyngeal ([employer]) specimens. It is used under Emergency Use [...] indicated. Lab Interpretation Normal (test code = 79701-0) [facility] DistrictLactic Acid Whole Vriie8489-24-88 04:34:00 Test Item Value Reference Range Interpretation Comments LACTIC ACID (test code = 0.89 mmol/L 0.5-2.2 2902647428) [facility] DistrictCT ABDOMEN PELVIS W [id number] 02:47:02Impression: Marked distention and dilatation of the [...] bowel as well. Rectal tubedecompression may be considered.[facility] UixlytAbsywwkvet1286-02-22 01:51:00 Test Item Value Reference Range Interpretation Comments APPEARANCE (test code = Hazy Clear A 3254310790) COLOR (test code = Yellow Yellow 0039411332) PH (test code = 4.8-8.0 1297020729) SP GRAVITY (test code = 1.003-1.030 1409576740) GLU U QUAL (test code = Normal Normal 2611452658) BLOOD (test code = Negative Negative 1334793098) KETONES (test code = Negative Negative 5759149781) PROTEIN (test code = Negative Negative 2887-8) UROBILIN (test code = Normal Normal 9694722714) BILIRUBIN (test code = Negative Negative 9282763481) NITRITE (test code = Negative Negative 0795899761) LEUK ROGER (test code = Negative Negative 9796708899) RBC/HPF (test code = See_Comment H [Autom ated message] 7768707162) The system [employer] generated this result transmitted ref erence range: 0 - 3 HP F. The reference range was not used to int erpret this result as normal/abnormal . WBC/HPF (test code = See_Comment [Autom ated message] 6658783381) The system [employer] generated this result transmitted ref erence range: 0 - 5 HP F. The reference range was not used to int erpret this result as normal/abnormal . BACTERIA (test code = Negative Negative 6459911085) SQ EPITH (test code = <1 See_Comment [Auto mated message] 3025739592) The system [employer] generated this result transmitted ref erence range: <=2 HPF. The reference range was not used to int erpret this result as normal/abnormal . CA OXALATE (test code = See_Comment H [Au tomated message] 6741447383) The system [employer] generated this result transmitted ref erence range: <=1 HPF. The reference range was not used to int erpret this result as normal/abnormal . Lab Interpretation (test Abnormal code = 99440-0) [facility] (NA, K, CL, CO2, GLUCOSE, BUN, CREATININE, CA)2020-01-25 01:01:00 Test Item Value Reference Range Interpretation Comments NA (test code = 139 mmol/L 135-145 0556254399) K (test code = 4.6 mmol/L 3.5-5 Slight hemoly sis 3956151418) CL (test code = 107 mmol/L 98-108 6422000725) CO2 TOTAL (test 26 mmol/L 23-31 code = 8825162601) AGAP (test code = 2-16 2938287255) BUN (test code = 23 mg/dL 7-23 Slight hemo lysis 0452404381) GLUCOSE (test code 94 mg/dL 70-110 = 6738774244) CREATININE (test 1.13 mg/dL 0.6-1.25 code = 1950617355) CALCIUM (test code 8.9 mg/dL 8.6-10.6 = 3618079651) eGFR Calculation mL/min/1.73m2 (Non-) (test code = 2730985027) eGFR Calculation mL/min/1.73m2 () (test code = 7460800897) GILBERTO (test code = Association of GILBERTO) [...] or urine or abnormalities in imaging tests). [facility]Hep[facility] Function [facility] (ALB, T.PRO, BILI T, BU/BC, ALT, AST, ALK PHOS)2020-01-25 01:01:00 Test Item Value Reference Range Interpretation Comments TOTAL BILI (test code = 2532112589) 0.7 mg/dL 0.1-1.1 BILI UNCON (test code = 7046209883) 0.6 mg/dL 0.1-1.1 BILI CONJ (test code = 9447511147) 0.0 mg/dL 0-0.3 T PROTEIN (test code = 7722742593) 6.2 g/dL 6.3-8.2 L ALBUMIN (test code = 5296714321) 4.1 g/dL 3.5-5 ALK PHOS (test code = 4783808960) 46 U/L 34-122 ALTv (test code = 1742-6) 27 U/L 5-50 AST(SGOT) (test code = 5021808165) 31 U/L 13-40 Lab Interpretation (test code = Abnormal 96619-3) [facility] DistrictLipase [id number] 01:01:00 Test Item Value Reference Range Interpretation Comments LIPASE (test code = 1374288289) 246 U/L 0-220 H Lab Interpretation (test code = Abnormal 19470-9) [facility] DistrictCB WITH [id number] 00:49:00 Test Item Value Reference Range Interpretation Comments WBC (test code = See_Comment [Automated 6790-2) message] The sy stem which generated this result transmitted reference range : 4.20 - 10.70 10*3/?L. The reference range was not used to interpret this result as normal/abnormal . RBC (test code = See_Comment L [Automated 469-8) message] The sy stem which generated this [...] RDW-SD (test code = 46.8 fL 38.5-51.6 48935-6) RDW-CV (test code = 14.2 % 12.1-15.4 788-0) PLT (test code = See_Comment [Automated 777-3) message] The sy stem which generated this result transmitted reference range : 150 - 328 10*3/ ?L. The reference r meredith was not used to interpret this result as normal/abnormal . MPV (test code = 10.7 fL 9.8-13 62694-7) NRBC/100 WBC (test See_Comment [Automat ed code = 6950249868) message] The system which generated this result transmitted reference range : 0.0 - 10.0 /100 WBCs. The refer ence range was not u sed to interpret th is result as normal/abnormal . NRBC x10^3 (test code <0.01 See_Comment [Auto mated = 2289358485) message] The s ystem which generated this result transmitted reference range : 10*3/?L. The reference range was not used to interpret this result as normal/abnormal . GRAN MAT (NEUT) % 56.9 % (test code = 770-8) IMM GRAN % (test code 0.20 % = 9872503165) LYMPH % (test code = 31.2 % 736-9) MONO % (test code = 9.7 % 5905-5) EOS % (test code = 1.6 % 713-8) BASO % (test code = 0.4 % 706-2) GRAN MAT x10^3(ANC) 2.86 10*3/uL 1.99-6.95 (test code = 9057233685) IMM GRAN x10^3 (test <0.03 0-0.06 code = 2366393286) LYMPH x10^3 (test code 1.57 10*3/uL 1.09-3.23 = 731-0) MONO x10^3 (test code 0.49 10*3/uL 0.36-1.02 = 742-7) EOS x10^3 (test code = 0.08 10*3/uL 0.06-0.53 711-2) BASO x10^3 (test code <0.03 0.01-0.09 = 704-7) Lab Interpretation Abnormal (test code = 15292-2) [facility]BD[facility] 1 [id number] 07:32:00 Name: DORA JOSEPH Woodhull : 1970 Age/S: 49 / M [address] Unit #: [id number] Loc: [place] [address] Phys: Jay Mayo MD Acct: [id number] Dis Date: Status: ADM IN PHONE #: [phone] Exam Date: 01/10/2020 0658 FAX #: Reason: follow up colonic ileus EXAMS: CPT: [id number] XR ABDOMEN 1 V 10733 Fluoro Time: DAP (Gy m2): Air Kerma (mGy): EXAM: - XR ABDOMEN 1 VHISTORY: follow up colonic ileus Location code:C3 COMPARISON: 01/09/2020 FINDINGS: 3 views of the abdomen are provided. Drainage catheter about the left upper quadrant is seen. Severe gaseous distentionof loops of colon persist without air-fluid levels. Enteric tube is no longer visualized. IMPRESSION: 1. Severe colonic distention is unchanged. at 0732 Reported and signed by: Marcello Santacruz MD CC: Jay Mayo MD; Mark Perea MD PAGE 1 Signed Report Name: [facility] JO[facility]PH [facility] : 1970Age/S: 49 / M [address] [place] [address] Unit #: [id number] Loc: [place] [address] Phys: Jay Mayo MD Acct: [id number] Dis Date: Status: ADM IN PHONE #: [phone] Exam Date: 01/10/2020 0658 FAX #: Reason: follow up colonic ileus EXAMS: CPT: [id number] XR ABDOMEN 1 V 38722 Fluoro Time: DAP (Gy m2): Air Kerma (mGy): <Continued> Technologist: Alexander De Leon RT(R)(CT) Trnscb Date/Time: 01/10/2020 (0735) RafatR.[email or web address] Orig Print D/T: S: 01/10/2020 (2688) PAGE 2 Signed ReportCOMPREHENSIVE METABOLIC [id number] 05:56:00 Test Item Value Reference Range Interpretation [...] TOTAL (test code = ALKP) CBC W/AUTO [id number] 05:42:00 Test Item Value Reference Range Interpretation [...] = NO DIFF/SCN CRITERIA MDIFF) BASIC METABOLIC [id number] 06:59:00 Test Item Value Reference Range Interpretation [...] code = CA) 8.5 MG/DL 8.5-10.1 N [id number] 06:59:00 Test Item Value Reference Range Interpretation Comments MAGNESIUM (test code = MAG) 2.2 MG/DL 1.8-2.4 PROTHROMBIN [id number] 06:39:00 Test Item Value Reference Range Interpretation Comments PT PATIENT (test code = PTP) 13.1 SECONDS 9.3-12.9 H INTERNATIONAL NORMAL RATIO 1.16 INR Unit 0.8-1.2 N (test code = INR) CBC W/AUTO [id number] 06:22:00 Test Item Value Reference Range Interpretation [...] DIFF/SCN CRITERIA MDIFF) - XR ABDOMEN 1 [id number] 05:39:00 Name: DORA JOSEPH [place]ull : 1970 Age/S: 49 / M [address] Unit #: [id number] Loc: [place] [address] 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 Acct: [id number] Dis Date: Status: ADM IN PHONE#: [phone] Exam Date: 01/09/2020522 FAX #: Reason: colonic ileus/obstruction EXAMS: CPT: [id number] XR ABDOMEN 1 V 45949 Fluoro Time: DAP (Gy m2): Air Kerma [...] PAGE 1 Signed Report Name: DORA JOSEPH [place]ull : 1970 Age/S: 49 / M [address] Unit #: [id number] Loc: [place] [address] 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 Acct: [id number] Dis Date: Status: ADM IN PHONE #: [phone] Exam Date: 01/09/2020 05 FAX #: Reason: colonic ileus/obstruction EXAMS: CPT: [id number] XR ABDOMEN 1V 61155 Fluoro Time: DAP (Gy m2): Air Kerma (mGy): <Continued> Technologist: Carrie Barnett, RT(R)(CT) Trnscb Date/Time: 01/09/2020 (0539) [id number] Orig Print D/T: S: 01/09/2020 (0542) PAGE 2Signed ReportCoronavirus 2018 nCoV [id number] 22:38:00 Test Item Value Reference Range Interpretation Comments Coronavirus 2019 nCoV Bedside (test Negative Negative code = [id number]) Emergent procedure? YESCoronavirus 2018 nCoV [id number] 22:38:00 Test Item Value Reference Range Interpretation Comments Coronavirus 2019 nCoV Bedside (test Negative Negative code = [id number]) Emergent procedure? YESBASIC METABOLIC [id number] 18:42:00 Test Item Value Reference Range Interpretation [...] CA) 8.5 MG/DL 8.5-10.1 N CBC W/AUTO [id number] 10:50:00 Test Item Value Reference Range Interpretation [...] = NO DIFF/SCN CRITERIA MDIFF) COMPREHENSIVE METABOLIC [id number] 10:46:00 Test Item Value Reference Range Interpretation [...] 50-136 N TOTAL (test code = ALKP) [id number] 10:46:00 Test Item Value Reference Range Interpretation Comments MAGNESIUM (test code = MAG) 2.6 MG/DL 1.8-2.4 H COMPREHENSIVE METABOLIC [id number] 10:34:00 Test Item Value Reference Range Interpretation [...] TOTAL (test Unit/L 50-136 code = ALKP) [id number] 10:34:00 Test Item Value Reference Range Interpretation Comments MAGNESIUM (test code = MAG) MG/DL 1.8-2.4 - XR ABDOMEN 1 [id number] 08:28:00 Name: DORA JOSEPH [facility] : 1970 Age/S: 49 / M [address] Unit #: [id number] Loc: [place] [address] Phys: Yas Edwards MD Acct: [id number] Dis Date: Status: ADM IN PHONE#: [phone] Exam Date: 01/08/2020 0510 FAX #: Reason: ileus EXAMS: CPT: [id number] XR ABDOMEN 1 V 35409 Fluoro Time: DAP (Gy m2): Air Kerma (mGy): KUB Location T 18 INDICATION: Ileus, bowel obstruction Comparison 01/07/2020 and 01/06/[address] Significant gaseous distention ofthe colon, may have increased slightly from the prior studies. Apparent minimal small bowel gas in the mid abdomen. IMPRESSION: Generalized ileus versus distal obstruction. at 0828 Reported and signed by: Bernardo Ochoa M.D. CC: Mark Perea MD; Yas Edwards MD PAGE 1 Signed Report Name: DORA JOSEPH [place] : 1970 Age/S: 49 / M [address] Unit #: [id number] Loc: [place] [address] Phys: Yas Edwards MDAcct: [id number] Dis Date: Status: ADM IN PHONE #: [phone] Exam Date: 01/08/2020 05 FAX #: Reason: ileus EXAMS: CPT: [id number] XR ABDOMEN 1 V 86083 Fluoro Time: DAP (Gy m2): Air Kerma (mGy): & lt;Continued> Technologist: Carrie Barnett, RT(R)(CT); ... Trnscb Date/Time: 01/08/2020 (827)GarettJTM Orig Print D/T: S: 01/08/2020 (830) PAGE 2 Signed ReportCOMPREHENSIVE METABOLIC [id number] 07:08:00 Test Item Value Reference Range Interpretation [...] 50-136 L TOTAL (test code = ALKP) [id number] 07:08:00 Test Item Value Reference Range Interpretation Comments MAGNESIUM (test code = MAG) 1.3 MG/DL 1.8-2.4 L COMPREHENSIVE METABOLIC [id number] 05:16:00 Test Item Value Reference Range Interpretation [...] 50-136 L TOTAL (test code = ALKP) [id number] 05:16:00 Test Item Value Reference Range Interpretation Comments MAGNESIUM (test code = MAG) 1.3 MG/DL 1.8-2.4 L CBC W/AUTO [id number] 05:02:00 Test Item Value Reference Range Interpretation [...] (test code = NO DIFF/SCN CRITERIA MDIFF) [id number] 16:51:00 Test Item Value Reference Range Interpretation Comments MAGNESIUM (test code = MAG) 2.3 MG/DL 1.8-2.4 N FE W/TOTAL IRON BINDING CAP.2020-01-07 16:51:00 Test Item Value Reference Range Interpretation Comments SERUM IRON (test code = IRON) 38 mcG/DL 65-175 L TOTAL IRON BINDING CAPACITY (test 322 mcG/DL 250-450 N code = TIBC) IRON SATURATION (test code = 12 % calc 12-57 N FESAT) [id number] 16:51:00 Test Item Value Reference Range Interpretation Comments FERRITIN (test code = DAVID) 17.6 NG/ML 5.0-323.0 N CALCIUM [id number] 16:50:00 Test Item Value Reference Range Interpretation Comments CALCIUM IONIZED (test code = NAVEED) 1.12 mmol/L 1.12-1.32 N - XR ABDOMEN 1 [id number] 10:29:00 Name: DORA JOSEPH [place] : 1970 Age/S: 49 / M [address] #: [id number] Loc: [place] [address] Phys: Verona Frost PA-C Acct: [id number] Dis Date: Status: ADM IN PHONE #: [phone] Exam Date: 01/07/2020 07 FAX #: Reason: reassess SBO EXAMS: CPT: [id number] XR ABDOMEN 1 V 80565 Fluoro Time: DAP (Gy m2): Air Kerma [...] PAGE 1 Signed Report Name: DORA JOSEPH [place] : 1970 Age/S: 49 / M [address] Unit #: [id number] Loc: [place] [address] Phys: Verona Frost PA-C Acct: [id number] Dis Date: Status: ADM IN PHONE #: [phone] Exam Date: 01/07/2020 0712 FAX #: Reason: reassess SBO EXAMS: CPT: [id number] XR ABDOMEN 1 V 77542 Fluoro Time: DAP(Gy m2): Air Kerma (mGy): <Continued> Technologist: Alexander De Leon RT(R)(CT) Trnscb Date/Time: 01/07/2020 (2046) t.SDR.AGV Orig Print D/T: S: 01/07/2020 (0578) PAGE 2 Signed ReportBASIC METABOLIC PANEL 2020-01-07 [...] CA) 5.4 MG/DL 8.5-10.1 LL CBC W/AUTO [id number] 06:49:00 Test Item Value Reference Range Interpretation [...] = NO DIFF/SCN CRITERIA MDIFF) COMPREHENSIVE METABOLIC [id number] 06:10:00 Test Item Value Reference Range Interpretation [...] TOTAL (test code = ALKP) CBC W/AUTO [id number] 05:52:00 Test Item Value Reference Range Interpretation [...] DIFF/SCN CRITERIA MDIFF) - XR ABDOMEN 1 [id number] 01:30:00 Name: DORA JOSEPH [place] : 1970 Age/S: 49 / M [address] Unit #: [id number] Loc: [place] [address] Phys: Ted Coleman NP Acct: [id number] Dis Date: Status: ADM INPHONE #: [phone] Exam Date: 01/06/2020 0100 FAX #: Reason: NG Tube Placement Verification EXAMS: CPT: [id number] XR ABDOMEN 1 V 74507 Fluoro Time: DAP (Gy m2): Air Kerma [...] placement. Electronically Signed by Renée Do on 0 01/06/2020 at 0130 Reported and signed by: Teo Do M.D. CC: Mark Perea MD; Ted Coleman NP PAGE 1 Signed Report Name: DORA JOSEPH [place] : 1970 Age/S: 49/ M [address] Unit #: [id number] Loc: [place] [address] Phys: Ted Coleman NP Acct: [id number] Dis Date: Status: ADM IN PHONE #: [phone] Exam Date: 01/06/2020 0100 FAX #: Reason: NG Tube Placement Verification EXAMS: CPT: [id number] XR ABDOMEN 1 V 41840 Fluoro Time: DAP (Gy m2): Air Kerma (mGy): <Continued> Technologist: Amberly Borrero RT(R) Trnscb Date/Time: 01/06/2020 (129) GarettFC Orig Print D/T: S: 01/06/2020 (954) PAGE 2 Signed Report- CT ABD PELVIS W/O [id number] 19:42:00 Tobias: St: REG -- Name: JOSEPHDORA [facility] : 1970 Age/S: 49/M [address] [facility] Unit: [id number] Loc: [place], [place]: [place] [address] Acct: [id number] Dis Date: Status: REG ER PHONE #: [phone] Exam Date: 12/13/2019 192 FAX #: [phone] Reason: pain EXAMS: CPT CODE: [id number] CT ABD PELVIS W/O CONT 43829 Examination: CT scan abdomen and pelvis without [...] ALMANZAR Trnscrd Dt/Tm: 12/13/2019 (1941) tJUDSONVR5 Orig Parvin nt D/T: S: 12/13/2019 (5 PAGE 1 Signed ReportBASIC METABOLIC [id number] 18:49:00 Test Item Value Reference Range Interpretation [...] code = CA) 8.6 mg/dl 8.0-10.5 N [id number] 18:49:00 Test Item Value Reference Range Interpretation Comments LIPASE (test code = LIP) 97 Units/L 65.0-230.0 N CBC W/AUTO [id number] 18:38:00 Test Item Value Reference Range Interpretation [...] K/mm3 0.0-0.2 N - XR CHEST 1 [id number] 18:36:00 Tobias: St: PRE -- Name: DORA JOSEPH [facility] : 1970 Age/S: 49/M [address] Unit #: [id number] Loc: [place], [place]: [place] [address] Acct: [id number] Dis Date: Status: PRE ER PHONE #: [phone] Exam Date: 12/13/20191821 FAX #: [phone] Reason: SOB EXAMS: CPT CODE: [id number] XR CHEST 1 V 17446 Examination: One view chest x-ray Location code: [...] by: SHANEL EDWARDS CC: Technologist: AMBER GENTILE Trnprrd Date/Time/By: 12/13/2019 (1835) : By: GarettVR5 PAGE 1 Signed Report Tobias: St: PRE ------- Name: DORA JOSEPH [facility] : 1970 Age/S: 49/M [address] [place], [place] [address] Unit #: [id number] Loc: [place], [place]: [place] [address] Acct: [id number] Dis Date: Status: PRE ER PHONE #: [phone] Exam Date: 12/13/20191821 FAX #: [phone] Reason: SOB EXAMS: CPT CODE: [id number] XR CHEST 1 V 07982 (Continued) Orig Print D/T: S: 12/13/2019 (1839) PAGE 2 Signed ReportCBC W/PLT COUNT & AUTO DIFFERENTIAL 2019-04-04 08:02:00 Test Item Value Reference Range Interpretation [...] Received comment: User comments: Slide comments:BASIC METABOLIC [id number] 07:34:00 Test Item Value Reference Range Interpretation [...] S NOT APPLICABLE FOR DIALYSIS PATIEN TS. [id number] 07:26:00 Test Item Value Reference Range Interpretation Comments PHOSPHORUS (BEAKER) (test code = 3.1 mg/dL 2.3-4.7 604) [id number] 07:26:00 Test Item Value Reference Range Interpretation Comments MAGNESIUM (BEAKER) (test code = 1.6 mg/dL 1.6-2.6 627) RAD, ABDOMEN/KUB, 1 VIEW [id number] 07:04:00Reason for exam:->ileusFINAL REPORT Abdomen , one [...] MDReport Verified Date/Time: 04/03/2019 07:04:46 Reading Location: [facility] C013X Ortho Consult Reading Room BASIC METABOLIC [id number] 06:47:00 Test Item Value Reference Range Interpretation [...] code = 413) URINALYSIS WITH MICROSCOPIC IF [id number] 22:01:00 Test Item Value Reference Range Interpretation [...] 463) SOURCE(BEAKER) (test code = 2795) URINALYSIS [id number] 22:01:00 Test Item Value Reference Range Interpretation Comments RBC UA (BEAKER) (test code = 519) 18 /HPF WBC UA (BEAKER) (test code = 520) 1 /HPF CALCIUM OXALATE CRYSTALS (BEAKER) Occasional (test code = 518) [id number] 05:49:00 Test Item Value Reference Range Interpretation Comments PHOSPHORUS (BEAKER) (test code = 2.5 mg/dL 2.3-4.7 604) [id number] 05:49:00 Test Item Value Reference Range Interpretation Comments MAGNESIUM (BEAKER) (test code = 1.7 mg/dL 1.6-2.6 627) BASIC METABOLIC [id number] 05:49:00 Test Item Value Reference Range Interpretation [...] (BEAKER) (test code = 413) BASIC METABOLIC [id number] 06:19:00 Test Item Value Reference Range Interpretation [...] S NOT APPLICABLE FOR DIALYSIS PATIEN TS. [id number] 06:10:00 Test Item Value Reference Range Interpretation Comments MAGNESIUM (BEAKER) 1.8 mg/dL 1.6-2.6 Specimen slightly (test code = 627) hemolyzed [id number] 06:10:00 Test Item Value Reference Range Interpretation [...] (BEAKER) (test code = 413) BASIC METABOLIC [id number] 04:57:00 Test Item Value Reference Range Interpretation [...] S NOT APPLICABLE FOR DIALYSIS PATIEN TS. [id number] 04:55:00 Test Item Value Reference Range Interpretation Comments PHOSPHORUS (BEAKER) (test code = 2.6 mg/dL 2.3-4.7 604) [id number] 04:55:00 Test Item Value Reference Range Interpretation Comments MAGNESIUM (BEAKER) (test code = 1.8 mg/dL 1.6-2.6 627) CT, [id number] 14:16:00FINAL REPORT TECHNIQUE: CT of the abdomen [...] ileostomy site likely represents postsurgical change. Signed: Likhari, Gauruv MDReport Verified Date/Time: 03/29/2019 14:16:01Reading Location: [facility] B1 C013Y CT Body Reading Room , ABDOMEN/KUB, 1 VIEW [id number] 10:23:00Reason for exam:->evaluate ileusFINAL REPORT Technique: Supine [...] MDReport Verified Date/Time: 03/29/2019 10:23:29 Reading Location: [facility] Reading Room CBC (HEMOGRAM ONLY)2019-03-29 08:10:00 Test [...] WBC 0-0 (BEAKER) (test code = 413) [id number] 06:20:00 Test Item Value Reference Range Interpretation Comments PHOSPHORUS (BEAKER) (test code = 2.6 mg/dL 2.3-4.7 604) [id number] 06:20:00 Test Item Value Reference Range Interpretation Comments MAGNESIUM (BEAKER) (test code = 2.0 mg/dL 1.6-2.6 627) BASIC METABOLIC [id number] 06:20:00 Test Item Value Reference Range Interpretation [...] TS. RAD, ABDOMEN SERIES W/ UPRIGHT PA [id number] 22:18:00Reason for exam:- >eval ileusFINAL REPORT CLINICAL [...] Date/Time: 03/28/2019 22:18:50 RAD, ABDOMEN/KUB, 1 VIEW [id number] 11:23:00Reason for exam:->abdominal distensionShould this be performed [...] Ontiveros Verified Date/Time: 03/28/2019 11:23:34 Reading Location: [facility] Radiology Reading Room TISSUE [id number] 09:00:00Surgical Pathology Report Case: [id number] Authorizing Provider: Graciela [place] MD Collected: 03/25/2019 1133 Ordering Location: [facility] Received: 03/25/2019 1527 SERVICES Pathologist: Jordan Celaya MD Specimens: A) - Ileostomy, end ileostomy B) - Appendix A. SMALL BOWEL, END ILEOSTOMY, TAKEDOWN: - ENTERIC WALL WITH ULCERATION, TRANSMURAL ACUTE INFLAMMATION, NECROSIS AND FOCALINFLAMMATORY CHANGES CONSISTENT WITH DIVERSION COLITIS - VIABLE MARGINS - NEGATIVE FOR DYSPLASIA OR MALIGNANCYB. APPENDIX, APPENDECTOMY: - APPENDIX WITH NO SIGNIFICANT DIAGNOSTIC ABNORMALITY - NEGATIVEFOR MALIGNANCY Signing Pathologist Direct Phone Line: [phone] signed by Jordan Celaya MD on 03/28/2019 at 9:00 [id number] and postop diagnosis: ileostomy statusA. End ileostomy; [...] nodes are not identified in the mesentery. Crane Operator Cab sections are submitted. Section code: A, customer care representative section of each end of first mentioned segment of small bowel; A2, customer care representative of first mentioned segment of small bowel mucosa; A3, area of hemorrhagic mesentery of second mentioned segment of mucosa; A4, customer care representative of hemorrhagic mucosa at open end of second portion of small bowel; A5, customer care representative of stapled margin from second mentioned segment of small bowel, en face. B. Received fresh labeled with the patient's name, acces jcarlos number and "appendix" is an intact appendix measuring 3.5 cm in length and 0.6 cm in diameter which has a moderate amount of attached mesoappendix. The serosa is pink and smooth. The proximal end is cauterized. The specimen is serially sectioned to reveal a abad, smooth mucosa. No fecaliths are present. The wall thickness is 0.2 cm. No gross lesions are identified. Crane Operator Cab sections are submitted. Section code: B1, proximal margin en face and tip; B2, customer care representative cross section. CG/pl Performed.[id number] 06:23:00 Test Item Value Reference Range Interpretation Comments PHOSPHORUS (BEAKER) (test code = 2.7 mg/dL 2.3-4.7 604) [id number] 06:23:00 Test Item Value Reference Range Interpretation Comments MAGNESIUM (BEAKER) (test code = 1.9 mg/dL 1.6-2.6 627) BASIC METABOLIC [id number] 06:23:00 Test Item Value Reference Range Interpretation [...] S NOT APPLICABLE FOR DIALYSIS PATIEN TS. [id number] 08:20:00 Test Item Value Reference Range Interpretation Comments PHOSPHORUS (BEAKER) (test code = 2.6 mg/dL 2.3-4.7 604) [id number] 08:20:00 Test Item Value Reference Range Interpretation Comments MAGNESIUM (BEAKER) (test code = 1.8 mg/dL 1.6-2.6 627) BASIC METABOLIC [id number] 08:20:00 Test Item Value Reference Range Interpretation [...] S NOT APPLICABLE FOR DIALYSIS PATIEN TS. [id number] 06:06:00 Test Item Value Reference Range Interpretation Comments PHOSPHORUS (BEAKER) (test code = 4.1 mg/dL 2.3-4.7 604) [id number] 06:06:00 Test Item Value Reference Range Interpretation Comments MAGNESIUM (BEAKER) (test code = 1.8 mg/dL 1.6-2.6 627) BASIC METABOLIC [id number] 06:06:00 Test Item Value Reference Range Interpretation [...] S NOT APPLICABLE FOR DIALYSIS PATIEN TS. [id number] 06:03:00 Test Item Value Reference Range Interpretation Comments PHOSPHORUS (BEAKER) (test code = 4.2 mg/dL 2.3-4.7 604) [id number] 06:03:00 Test Item Value Reference Range Interpretation Comments MAGNESIUM (BEAKER) (test code = 2.0 mg/dL 1.6-2.6 627) BASIC METABOLIC [id number] 06:03:00 Test Item Value Reference Range Interpretation [...] WBC 0-0 (BEAKER) (test code = 413) [id number] 05:52:00 Test Item Value Reference Range Interpretation Comments PHOSPHORUS (BEAKER) (test code = 4.2 mg/dL 2.3-4.7 604) [id number] 05:52:00 Test Item Value Reference Range Interpretation Comments MAGNESIUM (BEAKER) (test code = 1.9 mg/dL 1.6-2.6 627) BASIC METABOLIC [id number] 05:52:00 Test Item Value Reference Range Interpretation [...] S NOT APPLICABLE FOR DIALYSIS PATIEN TS. [id number] 06:51:00 Test Item Value Reference Range Interpretation Comments PHOSPHORUS (BEAKER) (test code = 4.3 mg/dL 2.3-4.7 604) [id number] 06:51:00 Test Item Value Reference Range Interpretation Comments MAGNESIUM (BEAKER) (test code = 2.0 mg/dL 1.6-2.6 627) BASIC METABOLIC [id number] 06:51:00 Test Item Value Reference Range Interpretation [...] 0-0 (BEAKER) (test code = 413) TISSUE [id number] 11:50:00Surgical Pathology Report Case: [id number] Authorizing Provider: Mela Larson MD Collected: 03/18/2019 1827 Ordering Location: [facility] Received: 03/21/2019 0823 SERVICES Pathologist: Jordan Celaya MD Specimen: Small Bowel, NOS A. SMALL BOWEL, ILEOSTOMY PROLAPSE, TAKEDOWN: - ANASTOMOSIS SITE WITH ACTIVE CHRONIC INFLAMMATION AND FOCAL ISCHEMIC CHANGES - MUCOSAL RESECTIONMARGINS, NEGATIVE FOR MALIGNANCY - ONE BENIGN LYMPH NODE (0/1) - NEGATIVE FOR DYSPLASIA OR MALIGNANCY Signing Pathologist Direct Phone Line: [phone] signed by Jordan Celaya MD on 03/22/2019 at 11:50 [id number] of ileostomyReceived in a container labeled "small bowel" is a 48 cm long bowel segment with a diameter ranging from 2.5 to 5 cm. The attached adipose tissue measures 23 x 5 x 0.5 cm. The specimen is unoriented. Mucosal margin is opened with a diameter of 3.5 cm.The outer margin appears to be the ostomy [...] 0.5 to 1.2 cm in greatest dimension. Crane Operator Cab sections are submitted as follows: A1-A2, mucosal resection margin, en face; A3-A6, customer care representative sections of the possible ostomy stump; A7-A11, serial customer care representative sections from mucosal resection margin to the possible ostomy stump; A12, two lymph nodes. TH/plPerformed.[id number] 06:58:00 Test Item Value Reference Range Interpretation Comments PHOSPHORUS (BEAKER) (test code = 3.8 mg/dL 2.3-4.7 604) [id number] 06:58:00 Test Item Value Reference Range Interpretation Comments MAGNESIUM (BEAKER) (test code = 2.0 mg/dL 1.6-2.6 627) BASIC METABOLIC [id number] 06:58:00 Test Item Value Reference Range Interpretation [...] PATIEN TS. CBC W/PLT COUNT & AUTO [id number] 05:42:00 Test Item Value Reference Range Interpretation [...] PERCENT (BEAKER) (test code = 2801) FL, [id number] 17:42:00Reason for exam:->evaluate for colon stricture as [...] Lopezeport Verified Date/Time: 03/21/2019 17:42:21 Reading Location: [facility] C013X Ortho Consult Reading Room [id number] 03:58:00 Test Item Value Reference Range Interpretation Comments PHOSPHORUS (BEAKER) (test code = 3.0 mg/dL 2.3-4.7 604) [id number] 03:58:00 Test Item Value Reference Range Interpretation Comments MAGNESIUM (BEAKER) (test code = 2.0 mg/dL 1.6-2.6 627) BASIC METABOLIC [id number] 03:58:00 Test Item Value Reference Range Interpretation [...] PATIEN TS. CBC W/PLT COUNT & AUTO [id number] 03:20:00 Test Item Value Reference Range Interpretation [...] (BEAKER) (test code = 2801) BASIC METABOLIC [id number] 06:26:00 Test Item Value Reference Range Interpretation [...] S NOT APPLICABLE FOR DIALYSIS PATIEN TS. [id number] 06:05:00 Test Item Value Reference Range Interpretation Comments PHOSPHORUS (BEAKER) (test code = 2.2 mg/dL 2.3-4.7 L 604) [id number] 06:05:00 Test Item Value Reference Range Interpretation Comments MAGNESIUM (BEAKER) (test code = 2.0 mg/dL 1.6-2.6 627) CBC W/PLT COUNT & AUTO [id number] 05:25:00 Test Item Value Reference Range Interpretation [...] 0-1 PERCENT (BEAKER) (test code = 2801) [id number] 04:31:00 Test Item Value Reference Range Interpretation Comments PHOSPHORUS (BEAKER) (test code = 3.7 mg/dL 2.3-4.7 604) [id number] 04:31:00 Test Item Value Reference Range Interpretation Comments MAGNESIUM (BEAKER) (test code = 1.9 mg/dL 1.6-2.6 627) BASIC METABOLIC [id number] 04:31:00 Test Item Value Reference Range Interpretation [...] PATIEN TS. CBC W/PLT COUNT & AUTO [id number] 04:15:00 Test Item Value Reference Range Interpretation [...] 0-1 PERCENT (BEAKER) (test code = 2801) [id number] 06:41:00 Test Item Value Reference Range Interpretation Comments PHOSPHORUS (BEAKER) (test code = 3.1 mg/dL 2.3-4.7 604) [id number] 06:41:00 Test Item Value Reference Range Interpretation Comments MAGNESIUM (BEAKER) (test code = 1.9 mg/dL 1.6-2.6 627) BASIC METABOLIC [id number] 06:41:00 Test Item Value Reference Range Interpretation [...] PATIEN TS. CBC W/PLT COUNT & AUTO [id number] 06:36:00 Test Item Value Reference Range Interpretation [...] PERCENT (BEAKER) (test code = 2801) CT, [id number] 17:04:00No PO contrastFINAL REPORT ABDOMINAL AND PELVIS [...] MDReport Verified Date/Time: 03/17/2019 17:04:19 Reading Location: [facility] C013Y CT Body Reading Room XR ABDOMEN 2 [id number] 09:03:45XR ABDOMEN 2 VIEWSLOCATION: [id number]: Colstomy ProlapseCOMPARISON: Chest radiograph 04/15/2017, CT of [...] Nonspecific, nonobstructive bowel gas pattern.XR CHEST 1 [id number] 11:32:15EXAM: CHEST ONE VIEWINDICATION: Chest painCOMPARISON: None availableTECHNIQUE: AP view of the chest.FINDINGS: The cardiomediastinal silhouette is normal. The lungs are clearbilaterally. No pneumothoraxor pleural effusion is identified. Theosseous structures are unremarkable.IMPRESSION: No acute cardiopulmonary process.LOCATION: W37Yvbrx Type and [id number] 21:21:00 Test Item Value Reference Range Interpretation Comments ABO type (test code = ABO) O Rh Type (test code = RH) Positive Comprehensive Metabolic [id number] 20:36:00 Test Item Value Reference Range Interpretation [...] the National Kidney Foundation,http ://nkd ep.nih.gov Alcohol/Ethanol, [id number] 20:36:00 Test Item Value Reference Range Interpretation Comments Alcohol, Ethyl <0.01 g/dL 0.00-0.01 N Intoxicated 0 .080 g/dL (test code = ETOH) or more Prothrombin [id number] 20:00:00 Test Item Value Reference Range Interpretation Comments PT (test code = PT) 10.10 seconds 9.78-13.35 N INR (test code = INR) 0.88 Ratio 0.6-1.2 N Partial Thromboplastin [id number] 20:00:00 Test Item Value Reference Range Interpretation Comments aPTT (test code = PTT) 31.50 seconds 24.39-37.25 N CBC with [id number] 19:50:00 Test Item Value Reference Range Interpretation [...] code = ALYMPH) 2.2 K/cumm 0.5-4.6 N [place] Abs (test code = AMONO) 0.4 K/cumm 0.0-1.2 N Eos Abs (test code = AEOS) 0.17 K/cumm 0.00-0.74 N Baso Abs (test code = ABASO) 0.0 K/cumm 0.00-0.21 N 51064& PELVIS W/O [id number] 17:36:28CT ABDOMEN AND PELVIS WITHOUT CONTRAST.CLINICAL HISTORY: [...]
[2022-05-02] MEDS ORDERED: NA CHLORIDE 0.9% 1,000 ML ONE (19:57)
[2022-05-02] MEDS ORDERED: ONDANSETRON 4 MG/2 ML VIAL ONE (19:57)
[2022-05-02 22:07] LABS: Absolute Lymphocytes (CBC) 1.9 K/uL (0.7-4.9); Hematocrit 35.2 % (39.6-49.0); MCV 83.5 fL (80-100); MPV 7.3 fL (7.6-11.3); RBC Red Blood Cell Count 4.22 M/uL (4.33-5.43)
[2022-05-02 22:20] LABS: Potassium 3.3 mmol/L (3.5-5.1)
--- NOTE | 2022-05-02 22:25 | EDPHYS ---
Physician Documentation [facility] Name: Rico Mcneill Age: 52 yrs Sex: Male : 1970 Arrival Date: 05/02/2022 Time: 17:49 Bed 15 Private MD: ED Physician Theodore Whyte HPI: 05/02 19:34 This 52 yrs old Male presents to ER via Ambulatory with complaints of Colostomy bag rn problem. 19:34 Pt reports here because of colostomy bag problem. States that ran out of colostomy rn supplies again recently, and concerned because "intestine hanging out". Reports this is not a new problem but slowly more and more intestine is hanging out, goes back in with pressure, no pain or discomfort, and using bathroom fine. Does report fatigue and nausea. Also reports slowly worsening trouble swallowing thick foods, not fluids. + hx of acid reflux. . Onset: The symptoms/episode began/occurred at an unknown time. Severity of symptoms: At their worst the symptoms were mild in the emergency department the symptoms are unchanged. The patient has experienced similar episodes in the past. The patient has not recently seen a physician. Historical: - Allergies: 18:38 NKDA; bm7 - Home Meds: 18:38 None [Active]; bm7 - PMHx: 18:38 SBO; bm7 - PSHx: 18:38 Small bowel resection with ileostomy; bm7 - Immunization history:: Adult Immunizations not up to date, Client reports having NOT received the Covid vaccine. - Social history:: Smoking status: Patient denies any tobacco usage or history of. - Family history:: not pertinent. - Hospitalizations: : No recent hospitalization is reported. ROS: 19:34 Constitutional: Negative for fever, chills, and weight loss, Eyes: Negative for injury, rn pain, redness, and discharge, Neck: Negative for injury, pain, and swelling, Cardiovascular: Negative for chest pain, palpitations, and edema, Respiratory: Negative for shortness of breath, cough, wheezing, and pleuritic chest pain, Abdomen/GI: + nausea and generalized weakness Back: Negative for injury and pain, : Negative for injury, bleeding, discharge, and swelling, MS/Extremity: Negative for injury and deformity, Skin: Negative for injury, rash, and discoloration, Neuro: Negative for headache, numbness, tingling, and seizure. Exam: 19:34 Constitutional: This is a well developed, well nourished patient who is awake, alert, rn and in no acute distress. Disheveled. Head/Face: Normocephalic, atraumatic. ENT: dry MM, no pooling of secretions. Cardiovascular: Regular rate and rhythm. No pulse deficits. Respiratory: No increased work of breathing, no retractions or nasal flaring. Abdomen/GI: soft, non-tender, + RLQ colostomy with protruding bowel, easily reduced, not inflamed, non-tender, + bag with non-bloody stool. Skin: Warm, dry MS/ Extremity: Pulses equal, no cyanosis. Neuro: Awake and alert, GCS 15 Vital Signs: 18:36 BP 96 / 73; Pulse 90; Resp 18; Temp 99.1(O); Pulse Ox 100% on R/A; Weight 65.77 kg (R); bm7 Height 6 ft. 1 in. (185.42 cm); Pain 8/10; 22:52 BP 148 / 89; Pulse 90; Resp 18; Pulse Ox 100% on R/A; ja4 18:36 Body Mass Index 19.13 (65.77 kg, 185.42 cm) bm7 MDM: 19:09 Patient medically screened. rn 22:22 Differential Diagnosis dehydration, GERD, esophageal stenosis. Data reviewed: vital rn signs, nurses notes, old medical records, lab test result(s), and as a result, I will discharge patient. Counseling: I had a detailed discussion with the patient and/or guardian regarding: the historical points, exam findings, and any diagnostic results supporting the discharge/admit diagnosis, lab results, the need for outpatient follow up, to return to the emergency department if symptoms worsen or persist or if there are any questions or concerns that arise at home. Response to treatment: the patient's symptoms have markedly improved after treatment, and as a result, I will discharge patient. Special discussion: I discussed with the patient/guardian in detail that at this point there is no indication for admission to the hospital. It is understood, however, that if the symptoms persist or worsen the patient needs to return immediately for re-evaluation. Based on the history and exam findings, there is no indication for further emergent testing or inpatient evaluation. I discussed with the patient/guardian the need to see the circular head saw operator for further evaluation of the symptoms. ED course: Ostomy easily reduced, no tenderness, bag replaced and given supplies. Normal WBC. Stable vitals. Recommend GI f/u especially for progressive swallowing problems and GERD. . 05/02 19:25 Order name: CBC with Diff; Complete Time: 22:22 rn 05/02 19:25 Order name: Basic Metabolic Panel; Complete Time: 22:22 rn 05/02 19:25 Order name: IV Start; Complete Time: 20:04 rn 05/02 19:25 Order name: Misc. Order: please supply with new colostomy supplies and switch current rn bag Administered Medications: 20:03 Drug: Zofran (Ondansetron) 4 mg Route: IVP; Site: right hand; ja4 20:03 Drug: NS 0.9% 1000 ml Route: IV; Rate: 1000 ml; Site: right hand; ja4 Disposition Summary: 05/02/22 22:25 Discharge Ordered Location: Home rn Problem: an ongoing problem rn Symptoms: have improved rn Condition: Stable rn Diagnosis - Encounter for attention to colostomy rn - Dehydration rn - Dysphagia, unspecified rn Followup: rn - With: Rogers Andrea MD - When: As needed - Reason: Recheck today's complaints, Re-evaluation by your physician Discharge Instructions: - Discharge Summary Sheet rn - Dehydration, Adult rn - Dysphagia rn - Colostomy Home Guide, Adult rn Forms: - Medication Reconciliation Form rn - Thank You Letter rn - Antibiotic furniture detailer - Prescription Opioid Use rn Signatures: Dispatcher [employer] EDTheodore Parnell MD MD rn McCarthy, Brittany RN RN [email or web address] Brian Schultz RN RN ja4
--- NOTE | 2022-05-02 22:25 | ER ---
Nurse's Notes [facility] Name: Rico Mcneill Age: 52 yrs Sex: Male : 1970 Arrival Date: 05/02/2022 Time: 17:49 Bed 15 Private MD: Diagnosis: Encounter for attention to colostomy;Dehydration;Dysphagia, unspecified Presentation: 05/02 18:36 Chief complaint: Patient states: Something is wrong with my colostomy bag. It keeps bm7 coming off and my intestine is falling into the bag. Coronavirus screen: At this time, the client does not indicate any symptoms associated with coronavirus-19. Ebola Screen: No symptoms or risks identified at this time. Initial Sepsis Screen: Does the patient meet any 2 criteria? No. Patient's initial sepsis screen is negative. Does the patient have a suspected source of infection? Yes: Skin breakdown/wound. Risk Assessment: Do you want to hurt yourself or someone else? Patient reports no desire to harm self or others. Onset of symptoms was May 01, 2022. 18:36 Method Of Arrival: Ambulatory bm7 18:36 Acuity: OCTAVIO 3 bm7 Triage Assessment: 18:38 General: Appears in no apparent distress. uncomfortable, Behavior is calm, cooperative, bm7 appropriate for age. Pain: Complains of pain in abdomen. EENT: No deficits noted. No signs and/or symptoms were reported regarding the EENT system. Neuro: No deficits noted. Cardiovascular: No deficits noted. Respiratory: No deficits noted. GI: Abdomen is round non-distended, Ileostomy site is reddened. is excoriated. Ostomy appliance is not intact. stool and bowel present in the bag Reports nausea. : No deficits noted. No signs and/or symptoms were reported regarding the genitourinary system. Derm: No deficits noted. No signs and/or symptoms reported regarding the dermatologic system. Musculoskeletal: No deficits noted. No signs and/or symptoms reported regarding the musculoskeletal system. Historical: - Allergies: 18:38 NKDA; bm7 - Home Meds: 18:38 None [Active]; bm7 - PMHx: 18:38 SBO; bm7 - PSHx: 18:38 Small bowel resection with ileostomy; bm7 - Immunization history:: Adult Immunizations not up to date, Client reports having NOT received the Covid vaccine. - Social history:: Smoking status: Patient denies any tobacco usage or history of. - Family history:: not pertinent. - Hospitalizations: : No recent hospitalization is reported. Screenin:43 Abuse screen: Denies threats or abuse. Nutritional screening: No deficits noted. ja4 Tuberculosis screening: No symptoms or risk factors identified. Assessment: 19:43 General: Appears in no apparent distress. slender, unkempt, Behavior is calm, ja4 cooperative, appropriate for age, Smells of Reports. Pain: Denies pain. GI: Reports intestine falling into colostomy bag. Vital Signs: 18:36 BP 96 / 73; Pulse 90; Resp 18; Temp 99.1(O); Pulse Ox 100% on R/A; Weight 65.77 kg (R); bm7 Height 6 ft. 1 in. (185.42 cm); Pain 8/10; 22:52 BP 148 / 89; Pulse 90; Resp 18; Pulse Ox 100% on R/A; ja4 18:36 Body Mass Index 19.13 (65.77 kg, 185.42 cm) bm7 ED Course: 17:49 Patient arrived in ED. mr 18:38 Triage completed. bm7 18:38 Arm band placed on left wrist. bm7 19:09 Theodore Whyte MD is Attending Physician. rn 19:42 Brian Schultz, RN is Primary Nurse. ja4 19:43 No apparent distress. ja4 19:43 Bed in low position. Call light in reach. Side rails up X2. ja4 19:43 No provider procedures requiring assistance completed. ja4 20:04 Basic Metabolic Panel Sent. ja4 20:04 CBC with Diff Sent. ja4 21:53 IV discontinued, intact, bleeding controlled, No redness/swelling at site. Pressure ja4 dressing applied. 22:24 Rogers Andrea MD is Referral Physician. rn 22:50 Primary Nurse role handed off by Brian Schultz, BRITTNY ja4 Administered Medications: 20:03 Drug: Zofran (Ondansetron) 4 mg Route: IVP; Site: right hand; ja4 20:03 Drug: NS 0.9% 1000 ml Route: IV; Rate: 1000 ml; Site: right hand; ja4 Medication: 19:43 VIS not applicable for this client. ja4 Outcome: 22:25 Discharge ordered by . rn 22:35 Patient left the ED. tequila 22:52 Discharged to home ambulatory. tequila 22:52 Condition: stable 22:52 Discharge instructions given to patient, Instructed on discharge instructions, follow up and referral plans. medication usage, Demonstrated understanding of instructions, follow-up care. 22:53 Patient left the ED. tequila Signatures: Saira Crowe mr WhyteTheodore MD MD rn McCarthy, Brittany, RN RN [facility] Brian Schultz RN RN tequila
[2022-05-03 03:41] VITALS: TEMP 99.1; O2SAT 100
[2022-05-03 03:43] VITALS: BP 148/89
== END 2022-05-02 22:53 | disposition home or self-care (01) ==
LOC: ER 17:47
DX: Z43.3 Encounter for attention to colostomy (principal); E86.0 Dehydration; R13.10 Dysphagia, unspecified
CPT/HCPCS: 36415; 80048; 85025; 96374; 99283; J2405; J7030

== ENCOUNTER 2022-05-05 15:40 | Emergency (ER) | payer SELFPAY ==
--- OUTSIDE RECORDS SUMMARY | 2022-05-05 16:29 | XMS REPORT | Continuity of Care Document ---
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 [...] Branch daily with meals. loperamide 2022-0 Yes [id number] 2mg Take 1 [facility] 2 mg 1-12 [...] by ity of tablet 00:00: mouth 3 [place] 00 (three) Medical times Branch daily with meals. loperamide 2021-0 Yes [id number] 2mg Take 1 [facility] 2 mg 1-12 capsule by ity of capsule 00:00: mouth 2 [place] 00 (two) Medical times Branch daily. psyllium 2-0 Yes 1{packe Take 1 Univ ers 3.4 gram 1-12 t} Packet by ity of packet 00:00: mouth 2 [place] (two) Medical times Branch daily. acetaminoph 2021-0 2- No 650mg Take 2 Un piyush en 325 mg 1-12 08-10 tablets by ity of tablet 00:00: 00:00 mouth [place] 00 :00 every 6 Medical (six) Branch hours as needed for Pain (scale 1-3). ibuprofen 202-0 2022- No 600mg Take 1 Univ ers 600 mg 1-12 08-10 tablet by ity of tablet 00:00: 00:00 mouth 3 [place] 00 :00 (three) Medical times Branch daily with meals. loperamide 2022-0 2022- No [id number] 2mg Take 1 [facility] 2 mg 1-12 08-10 capsule by ity of capsule 00:00: 00:00 mouth 2 [place] 00 :00 (two) Medical times Branch daily. psyllium 2022-0 2022- No 1{packe Take 1 Uni vers 3.4 gram 1-12 08-10 t} Packet by ity o f packet 00:00: 00:00 mouth 2 [place] 00 :00 (two) Medical times Branch daily. vitamin 2021-0 Yes 1000ug 1,000 mcg, Un piyush B-12 -11 Oral, ity of (CYANOCOBAL 20:00: DAILY, [place] 00 First dose Medical tablet on Thu Branch 1,000 mcg 09/03/21 at 1400, Until Discontinu ed, Routine vitamin 2021-0 Yes 1000ug 1,000 mcg, Un piyush B-12 -11 Oral, ity of (CYANOCOBAL 20:00: DAILY, [place] 00 First dose Medical tablet on Thu 1,000 mcg 09/03/21 at 1400, Until Discontinu [...] Oral, ity of tablet 50 14:28: Q6HPRN, [place] mg 55 Starting Medical on [facility] 09/03/21 at 0828, Until Discontinu ed, Routine, Pain (scale 4-6) traMADoL Yes 50mg 50 mg, Univers (ULTRAM) 09-03 Oral, ity of tablet 50 14:28: Q6HPRN, [place] mg 55 Starting Medical on [facility] 09/03/21 at 0828, Until Discontinu ed, Routine, [...] , Starting on Thu09/03/21 at 0345, Until 09/03/21 at 0826, Routine sulfur 2021-0 2021- No [id number] 5mL 5 mL, Unive rs hexafluorid 09-02 Intravenou i ty of e microsphr 21:30: 21:30 s, ONCE, 1 [place] (LUMASON) 00 :00 dose, On Medica l injection 5 Mon Branch mL 09/02/21 at 1530, Routine
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 : NORMAN FLORES NaCl 0.9% 0 2021- No 500mL at 999 Univ ers [...] Starting Branch on 09/01/21 at 0800, Until 09/01/21 at 1007, Routine NaCl 0.9% 2021-0 2021- No 1000mL at 999 Uni vers (NS) bolus 08-31 01-08 mL/hr, ity of infusion 15:15: 15:11 1,000 mL, [place] 1,000 mL 00 :00 IV Medical Infusion, Branch ONCE, 1 dose, On 08/31/21 at 0915, STAT pantoprazol 2021-0 Yes 40mg 40 mg, Univ ers e 1-08 Oral, ity of (PROTONIX) 15:00: DAILY, [place] EC tablet 00 First dose Medi mariusz 40 mg on Sat Branch 08/31/21 at 0900, Until Discontinu ed, Routine pantoprazol 2021-0 Yes 40mg 40 mg, Univ ers e 1-08 Oral, ity of (PROTONIX) 15:00: DAILY, [place] EC tablet 00 First dose Medi mariusz 40 mg on Sat Branch 08/31/21 at 0900, Until Discontinu ed, Routine loperamide 2021-0 Yes 2mg 2 mg, Univer s (IMODIUM 1-08 Oral, BID, ity o f A-D) 14:00: First dose [place] capsule 2 00 on [facility] Medical mg 08/31/21 at Branch 0800, Until Discontinu ed, Routine psyllium 2022-0 Yes 1{packe 1 Packet, U nivers (METAMUCIL 1-08 t} Oral, BID, ity of FIBER 14:00: First dose [place] SINGLES) 00 on [facility] Medical 3.4 gram 08/31/21 at Branch packet [...] First dose [place] capsule 2 00 on [facility] Medical mg 08/31/21 at Branch 0800, Until Discontinu ed, Routine psyllium 2022-0 Yes 1{packe 1 Packet, U nivers (METAMUCIL 1-08 t} Oral, BID, ity of FIBER 14:00: First dose [place] SINGLES) 00 on [facility] Medical 3.4 gram 08/31/21 at Branch packet 1 0800, Packet Until Discontinu ed, Routine heparin 2022-0 Yes 5000U 5,000 Univers (porcine) 1-08 Units, ity of injection 14:00: Subcutaneo [place] 5,000 Units 00 us, Q12H, Med ical First dose Branch on 08/31/21 at 0800, Until Discontinu ed, Routine NaCl 0.9% 2022-0 2022- No at 125 Unive rs (NS) IV 1-08 01-08 mL/hr, IV ity of infusion 07:15: 08:03 Infusion, [place] as 00 :43 CONTINUOUS Medical , Starting Branch on 08/31/21 at 0115, Until 08/31/21 at 0203, Routine acetaminoph 2022-0 Yes 650mg 650 mg, Un piyush en 1-08 Oral, ity of (TYLENOL) 06:03: Q6HPRN, [place] tablet 650 36 Starting Medic al mg on Sat Branch 08/31/21 at 0003, Until Discontinu ed, Routine, Pain (scale 1-3) acetaminoph Yes 650mg 650 mg, Un piyush en 08-31 Oral, ity of (TYLENOL) 06:03: Q6HPRN, [place] tablet 650 36 Starting Medic al mg [...] 08/29/21 Branch at 1830, Routine No known 2022-0 No Univers medications 1-06 ity of 19:35: [place] 26 Medical Branch NaCl 0.9% 2020-08 Yes [...] 5 37 Starting Medi mariusz mL on [place] Branch 08/04/21 at 1313, Until Discontinu ed, Routine, Local anesthesia dextrose 5% 2020-08 Yes IV Univer s and 0.45% 2-12 Infusion, ity o f NaCl with 16:00: CONTINUOUS [place] KCl 40 mEq 00 , Starting Med ical 1,000 mL IV on [place] Branch Solution 08/04/21 at 1000, Until Discontinu ed, 1,000 mL, at 125 mL/hr NaCl 0.9% 2020-08- No 1000mL at 999 Uni vers (NS) bolus 2-12 12-12 mL/hr, ity of infusion 15:53: 17:17 1,000 mL, [place] as 1,000 mL 00 :00 IV Medical Piggyback, Branch ONCE, 1 dose, On [place] 08/04/21 at 1000, JOÃO D5W 0.45% 2020-08- No IV Univers NaCl + KCL 2-10 12-12 Infusion, ity of 20 mEq RTU 15:00: 15:56 CONTINUOUS [place] 20 mEq/L 00 :45 , Starting Medic al 1,000 mL IV on Thu Branch Solution 08/02/21 at 0900, Until [place] 08/04/21 at 0956, 1,000 mL, at 100 [...] Yes 2{packe 2 Packet, U nivers (METAMUCIL -09 t} Oral, TID, ity of FIBER 14:00: [...] at 0730, Until Discontinu ed, Routine magnesium 2020-08- No 2g 2 g, IV Univ ers [...] Until Discontinu ed, Routine iopamidol 2020-08- No [id number] 100mL 100 mL, Univers (ISOVUE 10-01 Intravenou ity o f 370-500 mL) 05:14: 05:14 s, ONCE, 1 [place] injection 00 :00 dose, On Medica l 100 mL [facility] 07/30/21 at 2315, Routine morpHINE 2020-08- No 2mg 2 mg, Slow Un piyush injection 2 09-30 IV Push, ity of mg 17:00: 17:10 ONCE, 1 [place] 00 :00 dose, On Medical [facility] 07/30/21 at 1115, Routine enoxaparin 2020-08 Yes 40mg 40 mg, Unive rs (LOVENOX) 09-30 Subcutaneo ity of injection 15:00: us, DAILY, [place] 40 mg 00 First dose Medical (after Branch last modificati on) on [facility] 07/30/21 at 0900, Until Discontinu ed, Routine pantoprazol 2020-08 No 40mg 40 mg, Uni vers e 09-3010 Oral, ity of (PROTONIX) 15:00: 13:40 DAILY, [place] tablet 00 :20 First dose Medi mariusz 40 mg on [facility] 07/30/21 at 0900, Until Discontinu ed, Routine loperamide 2020-08- No 4mg 4 mg, Unive rs (IMODIUM 09-30 Oral, TID, ity of A-D) 14:00: 13:19 First dose [place] capsule 4 00 :28 on [facility] Medical mg 07/30/21 at Branch 0800, Until Discontinu ed, Routine psyllium 2020-08- No 1{packe 1 Packet, Univers (METAMUCIL 09-30 t} Oral, TID, it y of FIBER 14:00: 13:19 First dose [place] SINGLES) 00 :28 on [facility] Medical 3.4 gram 07/30/21 at Bran h packet 1 0800, Packet Until Discontinu [...] 2-07 Oral, ity of (TYLENOL) 06:10: Q6HPRN, [place] tablet 650 40 Starting Medic al mg on Thu Branch 07/30/21 at 0010, Until Discontinu ed, Routine, Pain (scale 1-3) morpHINE 2020-08- No 4mg 4 mg, Slow Un piyush injection 4 2-07 12-07 IV Push, ity of mg 03:30: 02:55 ONCE, 1 [place] 00 :00 dose, On Medical Mon Branch 07/29/21 at 2130, STAT psyllium 2020-08 Yes [id number] 1{packe Take 1 [facility] 3.4 gram 2-03 t} Packet by ity of packet 00:00: mouth 3 [place] 00 (three) Medical times Branch daily. loperamide 2020-08 Yes [id number] 4mg Take 2 [facility] 2 mg 2-03 capsules ity of capsule 00:00: by mouth 3 [place] 00 (three) Medical times Branch daily. pantoprazol 2020-08 Yes [id number] 40mg Take 1 Univers e 40 mg EC 2-03 tablet by ity of tablet 00:00: mouth [place] 00 daily. Medical Branch psyllium 2020-08 Yes [id number] 1{packe Take 1 [facility] 3.4 gram 2-03 t} Packet by ity of packet 00:00: mouth 3 [place] 00 (three) Medical times Branch daily. loperamide 2020-08 Yes [id number] 4mg Take 2 [facility] 2 mg 2-03 capsules ity of capsule 00:00: by mouth 3 [place] 00 (three) Medical times Branch daily. pantoprazol 2020-08 Yes [id number] 40mg Take 1 Univers e 40 mg EC 2-03 tablet by ity of tablet 00:00: mouth [place] 00 daily. Medical Branch psyllium 2020-08- No [id number] 1{packe Take 1 Univers 3.4 gram 2-03 12-13 t} Packet by ity o f packet 00:00: 00:00 mouth 3 [place] 00 :00 (three) Medical times Branch daily. loperamide 2020-08- No [id number] 4mg Take 2 Univers 2 mg 2-03 12-13 capsules ity of capsule 00:00: 00:00 by mouth 3 [place] 00 :00 (three) Medical times Branch daily. pantoprazol 2020-08- No [id number] 40mg Take 1 Univers e 40 mg EC 2-03 12-13 tablet by ity of tablet 00:00: 00:00 mouth [place] 00 :00 daily. Medical Branch psyllium 2020-08- No [id number] 1{packe Take 1 Univers 3.4 gram 2-03 12-03 t} Packet by ity o f packet 00:00: 00:00 mouth 3 [place] 00 :00 (three) Medical times Branch daily for 90 days. loperamide 2020-08- No [id number] 4mg Take 2 [facility] 2 mg 2-03 12-03 capsules ity of capsule 00:00: 00:00 by mouth 3 [place] 00 :00 (three) Medical times Branch daily for 90 days. pantoprazol 2020-08- No [id number] 40mg Take 1 Univers e 40 mg EC 2-03 12-03 tablet by ity of tablet 00:00: 00:00 mouth [place] 00 :00 daily for Medical 90 days. Branch psyllium 2020-08 No [id number] 1{packe Take 1 Univers 3.4 gram 2-07-26 t} Packet by ity o f packet 00:00: 00:00 mouth 3 [place] 00 :00 (three) Medical times Branch daily. pantoprazol 2020-08- No [id number] 40mg Take 1 Univers e 40 mg EC 09-26 tablet by ity of tablet 00:00: 00:00 mouth [place] 00 :00 daily. Medical Branch loperamide 2020-08- No [id number] 4mg Take 2 [facility] 2 mg -07-26 capsules ity of capsule 00:00: 00:00 by mouth 3 [place] 00 :00 (three) Medical times Branch daily. psyllium 2020-08- No [id number] 1{packe Take 1 [facility] 3.4 gram 207-26 t} Packet by ity o f packet 00:00: 00:00 mouth 3 [place] 00 :00 (three) Medical times Branch daily. loperamide 2020-08- No [id number] 4mg Take 2 Univers 2 mg 09-26 capsules ity of capsule 00:00: 00:00 by mouth 3 [place] 00 :00 (three) Medical times Branch daily. pantoprazol 2020-08- No [id number] 40mg Take 1 Univers e 40 mg EC 09-26 tablet by ity of tablet 00:00: 00:00 mouth [place] 00 :00 daily. Medical Branch pantoprazol 2020-08 Yes 40mg 40 mg, Univ ers e 2-02 Oral, ity of (PROTONIX) 15:00: DAILY, [place] EC tablet 00 First dose Medi mariusz 40 mg on [facility] Branch 07/25/21 at 0900, Until Discontinu ed, Routine psyllium 2020-08 Yes 1{packe 1 Packet, U nivers (METAMUCIL 2-02 t} Oral, TID, ity of FIBER 14:00: First dose [place] SINGLES) 00 (after Medical 3.4 gram last Branch packet 1 modificati Packet on) on [facility] 07/25/21 at 0800, Until Discontinu ed, [...] at 999 Uni vers (NS) IV 09-24 mL/hr, IV ity of infusion 22:45: 21:43 [...] ity o f A-D) 14:00: First dose [place] capsule 4 00 (after Medical mg last [...] (ZOFRAN 30 IV Push, ity of (PF)) 07:31: Administer [place] injection 4 37 over 15 Medic al mg Minutes, Branch Q6HPRN, Starting on Thu07/23/21 at 0131, Until Discontinu ed, Routine, Nausea and Vomiting (N/V) acetaminoph 2020-08 Yes 650mg 650 mg, Un piyush en 130 Oral, ity of (TYLENOL) 07:31: Q6HPRN, [place] tablet 650 37 Starting Medic al mg on Thu Branch 07/23/21 at 0131, Until Discontinu ed, Routine, Pain (scale 1-3) NaCl 0.9% 2020-08- No 1000mL at 999 Uni vers (NS) bolus 1-30 11-30 mL/hr, ity of infusion 06:46: 07:00 1,000 mL, [place] as 1,000 mL 00 :00 IV Medical Piggyback, [place] ONCE, 1 dose, On Thu07/23/21 at 0100, [...] dose [place] EC tablet 00 on [facility] Medical 40 mg 06/01/21 at Branch 0945, Until Discontinu ed, Routine psyllium 2020-08 Yes 1{packe 1 Packet, U nivers (METAMUCIL 0-09 t} Oral, ity of FIBER 14:45: DAILY, [place] SINGLES) 00 First dose Medic al 3.4 gram on [facility] Branch packet 1 06/01/21 at Packet 0945, [...] 16 Starting Medi mariusz tablet 1 on [facility] Branch tablet 06/01/21 at 0939, Until Discontinu [...] 0-09 Oral, ity of (TYLENOL) 14:36: Q6HPRN, [place] tablet 650 07 Starting Medic al mg on [facility] Branch 06/01/21 at 0936, Until Discontinu ed, [...] Thu05/31/21 at 2045, STAT iopamidol 2020-08- No [id number] 100mL 100 mL, Univers (ISOVUE 0-09 10-09 Intravenou ity o f 370-500 mL) 00:30: 00:30 s, ONCE, 1 [place] injection 00 :00 dose, On Medica l 100 mL Fri Branch 05/31/21 at 1930, Routine morpHINE 2020-08- No 4mg 4 mg, Slow Un piyush injection 4 0-08 10-08 IV Push, ity of mg 23:30: 22:48 ONCE, 1 [place] 00 :00 dose, On Medical Fri Branch [...] Thu05/31/21 at 1830, STAT psyllium 0 Yes [id number] 1{packe Take 1 Univers 3.4 gram 9-29 t} Packet by ity of packet 00:00: mouth [place] 00 daily. [facility] Branch psyllium 0 Yes [id number] 1{packe Take 1 Univers 3.4 gram 9-29 t} Packet by ity of packet 00:00: mouth [place] 00 daily. [facility] psyllium 0 Yes [id number] 1{packe Take 1 Univers 3.4 gram 9-29 t} Packet by ity of packet 00:00: mouth [place] 00 daily. [facility] psyllium 0 Yes [id number] 1{packe Take 1 Univers 3.4 gram 9-29 t} Packet by ity of packet 00:00: mouth [place] 00 daily. [facility] psyllium 0 Yes [id number] 1{packe Take 1 Univers 3.4 gram 9-29 t} Packet by ity of packet 00:00: mouth [place] 00 daily. [facility] psyllium 2020- No [id number] 1{packe Take 1 Univers 3.4 gram 9-29 12-13 t} Packet by ity o f packet 00:00: 00:00 mouth [place] 00 :00 daily. [facility] Branch enoxaparin Yes 40mg 40 mg, Unive [...] 50mg 50 mg, Univer s (ULTRAM) 05-21 Oral, ity of tablet 50 00:15: 00:14 Q8HPRN, [place] mg 07 :07 Starting Medical on Thu Branch 05/20/21 at 1915, Until Thu05/22/21 at 1914, Routine, Pain (scale 4-6) acetaminoph Yes 650mg 650 mg, Un piyush en 05-21 Oral, ity of (TYLENOL) 00:15: Q6HPRN, [place] tablet 650 01 Starting Medic al mg [...] t} Oral, ity of FIBER 22:15: DAILY, [place] SINGLES) 00 First dose Medic al 3.4 [...] ity of (PF)) 21:00: 20:15 ONCE, 1 [place] injection 4 00 :00 dose, On Medi mariusz mg [facility] 05/20/21 at 1600, JOÃO morpHINE 2020- No 4mg 4 mg, Slow Un piyush injection 4 05-20 IV Push, ity of mg 21:00: 20:15 ONCE, 1 [place] 00 :00 dose, On Medical [facility] 05/20/21 at 1600, STAT NaCl 0.9% 2020- No 500mL at 999 Univ ers (NS) bolus 05-20 mL/hr, 500 it y of infusion 21:00: 21:00 mL, IV [place] 500 mL 00 :00 [facility], [facility] ONCE, 1 [place] dose, On [facility] 05/20/21 at 1600, STAT pantoprazol Yes 40mg 40 mg, Univ ers e 9-17 Oral, BID, ity of (PROTONIX) 01:00: First dose [place] EC tablet 00 on [facility] Medical 40 mg 05/09/21 at [place] 1999, Until Discontinu ed, Routine pantoprazol Yes 40mg 40 mg, Univ ers e 9-17 Oral, BID, ity of (PROTONIX) 01:00: First dose [place] EC tablet 00 on [facility] Medical 40 mg 05/09/21 at [place] 1999, Until Discontinu ed, Routine pantoprazol 2020- No [id number] 40mg Take 1 Univers e 40 mg EC 9-16 11-16 tablet by ity of tablet 00:00: 05:59 mouth 2 [place] 00 :00 (two) [facility] daily pantoprazol 2020- No [id number] 40mg Take 1 Univers e 40 mg EC 9-16 11-16 tablet by ity of tablet 00:00: 05:59 mouth 2 [place] 00 :00 (two) [facility] daily pantoprazol 2020- No [id number] 40mg Take 1 Univers e 40 mg EC 9-16 11-16 tablet by ity of tablet 00:00: 05:59 mouth 2 [place] 00 :00 (two) [facility] daily pantoprazol 2020- No [id number] 40mg Take 1 Univers e 40 mg EC 9-16 11-16 tablet by ity of tablet 00:00: 05:59 mouth 2 [place] 00 :00 (two) Medical times Branch daily pantoprazol 2020- No [id number] 40mg Take 1 Univers e 40 mg EC 9-16 11-16 tablet by ity of tablet 00:00: 05:59 mouth 2 [place] 00 :00 (two) Medical times Branch daily pantoprazol 2020- No [id number] 40mg Take 1 Univers e 40 mg EC 9-16 11-16 tablet by ity of tablet 00:00: 05:59 mouth 2 [place] 00 :00 (two) Medical times Branch daily pantoprazol 2020- No [id number] 40mg Take 1 Univers e 40 mg [...] Branch on Thu05/08/21 at 1015, Until [place] 9/16/21 at 0802, Routine D5W-LR IV 2020- No [...] IV Push, ity of (PF)) 04:16: Q6HPRN, [place] injection 4 34 Starting Medi mariusz mg on [facility] Branch 05/07/21 at 2316, Until Discontinu ed, Routine, Nausea and Vomiting (N/V) ondansetron Yes 4mg 4 mg, Slow Univers (ZOFRAN 9-15 IV Push, ity of (PF)) 04:16: Q6HPRN, [place] injection 4 34 Starting Medi mariusz mg on [facility] 05/07/21 at 2316, Until Discontinu ed, Routine, Nausea and Vomiting (N/V) morpHINE 2020- No 4mg 4 mg, Slow Un piyush injection 4 05-0816 IV Push, ity of mg 04:16: 04:15 Q4HPN, [place] 32 :32 Starting Medical on [facility] 05/07/21 at 2316, Until Thu05/08/21 at 2315, Routine, Pain (scale 7-10) morpHINE 2020- No 4mg 4 mg, Slow Un piyush injection 4 05-0816 IV Push, ity of mg 04:16: 04:15 Q4HPN, [place] 32 :32 Starting Medical on [facility] 05/07/21 at 2316, Until Thu05/08/21 at 2315, Routine, Pain (scale 7-10) diazePAM 2020-0 2020- No 5mg 5 mg, Slow Un piyush (VALIUM) 9-15 09-15 IV Push, ity of injection 5 02:45: 02:49 ONCE, 1 [place] mg 00 :00 dose, On [facility] 05/07/21 at 2145, STAT diazePAM 2020- No 5mg 5 mg, Slow Un piyush (VALIUM) 05-08 IV Push, ity of injection 5 02:45: 02:49 ONCE, 1 [place] mg 00 :00 dose, On [facility] 05/07/21 at 2145, STAT iopamidol 2020- No [id number] 100mL 100 mL, Univers (ISOVUE 05-08 Intravenou ity o f 370-500 mL) 02:15: 01:08 s, ONCE, 1 [place] injection 00 :00 dose, On Medica l 100 mL [facility] 05/07/21 at 2115, Routine iopamidol 2020- No [id number] 100mL 100 mL, Univers (ISOVUE 05-08 Intravenou ity o f 370-500 mL) 02:15: 01:08 s, ONCE, 1 [place] injection 00 :00 dose, On Medica l 100 mL [facility] Branch 05/07/21 at 2115, Routine morpHINE 2020- No 4mg 4 mg, Slow Un piyush injection 4 05-08 IV Push, ity of mg 01:45: 00:48 ONCE, 1 [place] 00 :00 dose, On [facility] 05/07/21 at 204, JOÃO ondansetron 2020- No 4mg 4 mg, Slow Univers (ZOFRAN 05-08 IV Push, ity of (PF)) 01:45: 00:47 ONCE, 1 [place] injection 4 00 :00 dose, On Medi mariusz mg [facility] Branch 05/07/21 at 204, JOÃO morpHINE 2020-0 2020- No 4mg 4 mg, Slow Un piyush injection 4 05-08 IV Push, ity of mg 01:45: 00:48 ONCE, 1 [place] 00 :00 dose, On [facility] 05/07/21 at 204, JOÃO ondansetron 2020-0 2020- No 4mg 4 mg, Slow Univers (ZOFRAN 05-08 IV Push, ity of (PF)) 01:45: 00:47 ONCE, 1 [place] injection 4 00 :00 dose, On Medi mariusz mg Tue Branch 05/07/21 at 2045, JOÃO flu vaccine 2020- No .5mL 0.5 mL, Un piyush 6 months 08-24 Intramuscu ity of and up (PF) 17:30: 18:09 lar, ONCE, [place] (FLUZONE 00 :00 1 dose, Medical QUAD 08/24/20 Branch at 1130, (PF)) Routine syringe 0.5 mL sulfamethox 2020- No 1{tbl} 1 tablet, [facility] azole-trime 08-24 Oral, BID, i ty of thoprim 02:00: 13:59 7 doses, [place] (BACTRIM 00 :00 First dose Medic al DS) 800-160 on [place] Branch mg per 08/23/20 tablet 1 at 1999, tablet Last dose on 08/26/20 at 1999, JOÃO
Re ason for Anti-Infec tive: Empiric Therapy for Suspected Infection< br>Empiric Therapy Site: Skin / Soft tissue
Duration of therapy: 72 hours sulfamethox 2020- No [id number] 1{tbl} Take 1 [facility] azole-trime 08-24 tablet by it y of thoprim 00:00: 05:59 mouth 2 [place] 800-160 mg 00 :00 (two) Medical per tablet times Branch daily for 7 days. enoxaparin 2019-08 Yes 40mg 40 mg, Unive rs (LOVENOX) 2- Subcutaneo ity of injection 21:30: us, Q24H, [place] 40 mg 00 First dose Medical on [place] Branch 08/23/20 at 1530, Until Discontinu ed, Routine docusate 2019-08 Yes 100mg 100 mg, Unive rs (COLACE) 2-31 Oral, ity of capsule 100 15:00: DAILY, [place] mg 00 First dose Medical on [place] Branch 08/23/20 at 0900, Until Discontinu ed, Routine psyllium 2019-08 Yes 3{packe 3 Packet, U nivers (METAMUCIL 2-31 t} Oral, TID, ity of FIBER 14:00: First dose [place] SINGLES) 00 on [place] Medical 3.4 gram [...] 2019-08 Yes 6mg 6 mg, Univers (MELATIN) Oral, PRN ity o f tablet 6 mg 03:12: - SEE [place] 40 [facility] Medical NS, 1 Branch dose, Starting 08/22/20 at 2112, Until Discontinu ed, Routine, Insomnia, HS labetaloL 2019-08 Yes 10mg 10 mg, Univer s (NORMODYNE) 2-31 Slow IV ity o f injection 03:12: Push, [place] 10 mg 33 Q6HPRN, Medical Starting Branch 08/22/20 at 2112, Until Discontinu ed, Routine, hypertensi on ondansetron 2019-08 Yes 4mg 4 mg, Slow Univers (ZOFRAN IV Push, ity of (PF)) 03:12: Q6HPRN, [place] injection 4 08 Starting Medi mariusz mg Wed Branch 08/22/20 at 2112, Until Discontinu ed, Routine, Nausea and Vomiting (N/V) acetaminoph 2019-08 Yes 650mg 650 mg, Un piyush en 2-31 Oral, ity of (TYLENOL) 03:11: Q6HPRN, [place] tablet 650 56 Starting Medic al mg Wed Branch 08/22/20 at 2111, Until Discontinu ed, Routine, Pain (scale 1-3) NaCl 0.9% 2019-08 2020- No 1000mL at 999 Uni vers (NS) bolus 2-30 12-31 mL/hr, ity of infusion 21:45: 00:21 1,000 mL, [place] 1,000 mL 00 :00 IV Medical Infusion, Branch ONCE, 1 dose, 08/22/20 at 1545, JOÃO iohexol 2019-08- No 100mL 100 mL, Unive rs (OMNIPAQUE 1-17 - Intravenou it y of 350 00:30: 00:14 s, ONCE, 1 [place] BULK-100 00 :00 dose, Mon Medica l mL) 07/09/20 Branch injection at 1830, 100 mL Routine cefTRIAXone 2019-08- No 1000mg 1,000 mg, Univers (ROCEPHIN) 09-08 IV ity of 1,000 mg in 23:30: 00:58 Piggyback, [place] NaCl 0.9% 00 :00 ONCE, 1 Medical [...] IV Medical Infusion, Branch ONCE, 1 dose, [facility] 07/09/20 at 1645, [facility] amoxicillin 2019-08 Yes [id number] 1{tbl} Take 1 Univers -clavulanat 1-16 tablet by ity of e 875-125 00:00: mouth [place] mg per 00 every 12 Medical tablet (twelve) Branch hours. amoxicillin 2019-08- No [id number] 1{tbl} Take 1 Univers -clavulanat 1-16 08-24 [...] at 0815, 120 mL Routine NaCl 0.9% 2019-08 No 1000mL at 999 [...] of Therapy: 7 days ibuprofen 2019-08 Yes [id number] 800mg Take 1 U nivers 800 mg 0-08 tablet by ity of tablet 00:00: mouth [place] 00 every 6 Medical (six) Branch hours as needed for Pain (scale 4-6). loperamide 2019-08 Yes [id number] 4mg Take 2 U nivers 2 mg 0-08 capsules ity of capsule 00:00: by mouth 4 [place] 00 (four) Medical times Branch daily. diphenoxyla 2019-08 Yes [id number] 1{tbl} Take 1 Univers te-atropine 0-08 tablet by ity of 2.5-0.025 00:00: mouth [place] mg tablet 00 every 8 Medical (eight) Branch hours. psyllium 2019- Yes [id number] 3{packe Take 3 Univers 3.4 gram 0-08 t} Packets by ity o f packet 00:00: mouth 3 [place] 00 (three) Medical times Branch daily. psyllium 2019- Yes [id number] 3{packe Take 3 Univers 3.4 gram 0-08 t} Packets by ity o f packet 00:00: mouth 3 [place] 00 (three) Medical times Branch daily. diphenoxyla 2020-1 Yes [id number] 1{tbl} Take 1 [facility] te-atropine 0-08 tablet by ity of 2.5-0.025 00:00: mouth [place] mg tablet 00 every 8 Medical (eight) Branch hours. loperamide 2020-1 Yes [id number] 4mg Take 2 [facility] nivers 2 mg 0-08 capsules [facility] capsule 00:00: [place] (four) [facility] times Branch daily. ibuprofen 2020- Yes [id number] 800mg Take 1 [facility] 800 mg 0-08 tablet by ity of tablet 00:00: mouth [place] 00 every 6 Medical (six) Branch hours as needed for Pain (scale 4-6). psyllium 2020- Yes [id number] 3{packe Take 3 [facility] 3.4 gram 0-08 t} Packets by ity o f packet 00:00: mouth 3 [place] 00 (three) Medical times Branch daily. diphenoxyla 2020-1 Yes [id number] 1{tbl} Take 1 [facility] te-atropine 0-08 tablet by ity of 2.5-0.025 00:00: mouth [place] mg tablet 00 every 8 Medical (eight) Branch hours. loperamide 2020- Yes [id number] 4mg Take 2 [facility] nivers 2 mg 0-08 capsules [facility] of capsule 00:00: [place] mouth [place] (four) [facility] times Branch daily. ibuprofen 2020- Yes [id number] 800mg Take 1 [facility] n[facility] 800 mg 0-08 tablet by ity of tablet 00:00: mouth [place] 00 every 6 Medical (six) Branch hours as needed for Pain (scale 4-6). psyllium 2020-1 Yes [id number] 3{packe Take 3 [facility] 3.4 gram 0-08 t} Packets by ity o f packet 00:00: mouth 3 [place] 00 (three) Medical times Branch daily. diphenoxyla 2020-1 Yes [id number] 1{tbl} Take 1 [facility] te-atropine 0-08 tablet by ity of 2.5-0.025 00:00: mouth [place] mg tablet 00 every 8 Medical (eight) Branch hours. loperamide 2020-1 Yes [id number] 4mg Take 2 [facility] n[facility] 2 mg 0-08 capsules [facility] capsule 00:00: by mouth [place] (four) [facility] times Branch daily. ibuprofen 2020-1 Yes [id number] 800mg Take 1 [facility] n[facility] 800 mg 0-08 tablet by ity of tablet 00:00: mouth [place] 00 every 6 Medical (six) Branch hours as needed for Pain (scale 4-6). psyllium 2020-1 Yes [id number] 3{packe Take 3 [facility] 3.4 gram 0-08 t} Packets by ity o f packet 00:00: mouth 3 [place] 00 (three) Medical times Branch daily. diphenoxyla 2020- Yes [id number] 1{tbl} Take 1 [facility] te-atropine 0-08 tablet by ity of 2.5-0.025 00:00: mouth [place] mg tablet 00 every 8 Medical (eight) Branch hours. loperamide 2020- Yes [id number] 4mg Take 2 [facility] n[facility] 2 mg 0-08 capsules [facility] of capsule 00:00: by mouth [place] (four) [facility] times Branch daily. ibuprofen 2020- Yes [id number] 800mg Take 1 [facility] 800 mg 0-08 tablet by ity of tablet 00:00: mouth [place] 00 every 6 Medical (six) Branch hours as needed for Pain (scale 4-6). psyllium 2020- Yes [id number] 3{packe Take 3 [facility] 3.4 gram 0-08 t} Packets by ity o f packet 00:00: mouth 3 [place] 00 (three) Medical times Branch daily. diphenoxyla 2020- Yes [id number] 1{tbl} Take 1 [facility] te-atropine 0-08 tablet by ity of 2.5-0.025 00:00: mouth [place] mg tablet 00 every 8 Medical (eight) Branch hours. loperamide 2020- Yes [id number] 4mg Take 2 [facility] n[facility] 2 mg 0-08 capsules [facility] of capsule 00:00: by mouth 4 [place] (four) Medical times Branch daily. ibuprofen 2020- Yes [id number] 800mg Take 1 [facility] 800 mg 0-08 tablet by ity of tablet 00:00: mouth [place] 00 every 6 Medical (six) Branch hours as needed for Pain (scale 4-6). psyllium 2020- Yes [id number] 3{packe Take 3 [facility] 3.4 gram 0-08 t} Packets by ity o f packet 00:00: mouth 3 [place] 00 (three) Medical times Branch daily. diphenoxyla 2020-1 Yes [id number] 1{tbl} Take 1 [facility] te-atropine 0-08 tablet by ity of 2.5-0.025 00:00: mouth [place] mg tablet 00 every 8 Medical (eight) Branch hours. loperamide 2020-1 Yes [id number] 4mg Take 2 [facility] n[facility] 2 mg 0-08 capsules [facility] of capsule 00:00: by mouth 4 [place] 00 (four) Medical times Branch daily. ibuprofen 2020-1 Yes [id number] 800mg Take 1 [facility] 800 mg 0-08 tablet by ity of tablet 00:00: mouth [place] 00 every 6 Medical (six) Branch hours as needed for Pain (scale 4-6). psyllium 2020-1 Yes [id number] 3{packe Take 3 [facility] 3.4 gram 0-08 t} Packets by ity o f packet 00:00: mouth 3 [place] 00 (three) Medical times Branch daily. diphenoxyla 2020-1 Yes [id number] 1{tbl} Take 1 [facility] te-atropine 0-08 tablet by ity of 2.5-0.025 00:00: mouth [place] mg tablet 00 every 8 Medical (eight) Branch hours. loperamide 2020-1 Yes [id number] 4mg Take 2 [facility] n[facility] 2 mg 0-08 capsules [facility] of capsule 00:00: by mouth 4 [place] 00 (four) Medical times Branch daily. ibuprofen 2020-1 Yes [id number] 800mg Take 1 [facility] 800 mg 0-08 tablet by ity of tablet 00:00: mouth [place] 00 every 6 Medical (six) Branch hours as needed for Pain (scale 4-6). psyllium 2020-1 Yes [id number] 3{packe Take 3 [facility] 3.4 gram 0-08 t} Packets by ity o f packet 00:00: mouth 3 [place] 00 (three) Medical times Branch daily. diphenoxyla 2020-1 Yes [id number] 1{tbl} Take 1 [facility] te-atropine 0-08 tablet by ity of 2.5-0.025 00:00: mouth [place] mg tablet 00 every 8 Medical (eight) Branch hours. loperamide 2020-1 Yes [id number] 4mg Take 2 [facility] n[facility] 2 mg 0-08 capsules [facility] of capsule 00:00: by mouth 4 [place] 00 (four) Medical times Branch daily. ibuprofen 2020-1 Yes [id number] 800mg Take 1 [facility] 800 mg 0-08 tablet by ity of tablet 00:00: mouth [place] 00 every 6 Medical (six) Branch hours as needed for Pain (scale 4-6). psyllium 2020-1 Yes [id number] 3{packe Take 3 [facility] 3.4 gram 0-08 t} Packets by ity o f packet 00:00: mouth 3 [place] 00 (three) Medical times Branch daily. diphenoxyla 2020-1 Yes [id number] 1{tbl} Take 1 [facility] te-atropine 0-08 tablet by ity of 2.5-0.025 00:00: mouth [place] mg tablet 00 every 8 Medical (eight) Branch hours. loperamide 2020-1 Yes [id number] 4mg Take 2 [facility] 2 mg 0-08 capsules [facility] of capsule 00:00: by mouth 4 [place] 00 (four) Medical times Branch daily. ibuprofen 2020-1 Yes [id number] 800mg Take 1 [facility] 800 mg 0-08 tablet by ity of tablet 00:00: mouth [place] 00 every 6 Medical (six) Branch hours as needed for Pain (scale 4-6). psyllium 2020-1 Yes [id number] 3{packe Take 3 [facility] 3.4 gram 0-08 t} Packets by ity o f packet 00:00: mouth 3 [place] 00 (three) Medical times Branch daily. diphenoxyla 2020-1 Yes [id number] 1{tbl} Take 1 [facility] te-atropine 0-08 tablet by ity of 2.5-0.025 00:00: mouth [place] mg tablet 00 every 8 Medical (eight) Branch hours. loperamide 2020-1 Yes [id number] 4mg Take 2 [facility] n[facility] 2 mg 0-08 capsules [facility] of capsule 00:00: by mouth 4 [place] 00 (four) Medical times Branch daily. ibuprofen 2020-1 Yes [id number] 800mg Take 1 [facility] 800 mg 0-08 tablet by ity of tablet 00:00: mouth [place] 00 every 6 Medical (six) Branch hours as needed for Pain (scale 4-6). psyllium 2020-1 Yes [id number] 3{packe Take 3 [facility] 3.4 gram 0-08 t} Packets by ity o f packet 00:00: mouth 3 [place] 00 (three) Medical times Branch daily. diphenoxyla 2020-1 Yes [id number] 1{tbl} Take 1 [facility] te-atropine 0-08 tablet by ity of 2.5-0.025 00:00: mouth [place] mg tablet 00 every 8 Medical (eight) Branch hours. loperamide 2020-1 Yes [id number] 4mg Take 2 [facility] n[facility] 2 mg 0-08 capsules [facility] of capsule 00:00: by mouth 4 [place] 00 (four) Medical times Branch daily. ibuprofen 2020- Yes [id number] 800mg Take 1 [facility] 800 mg 0-08 tablet by ity of tablet 00:00: mouth [place] 00 every 6 Medical (six) Branch hours as needed for Pain (scale 4-6). psyllium 2020-1 Yes [id number] 3{packe Take 3 [facility] 3.4 gram 0-08 t} Packets by ity o f packet 00:00: mouth 3 [place] 00 (three) Medical times Branch daily. diphenoxyla 2020-1 Yes [id number] 1{tbl} Take 1 [facility] te-atropine 0-08 tablet by ity of 2.5-0.025 00:00: mouth [place] mg tablet 00 every 8 Medical (eight) Branch hours. loperamide 2020-1 Yes [id number] 4mg Take 2 [facility] n[facility] 2 mg 0-08 capsules [facility] of capsule 00:00: by mouth 4 [place] 00 (four) Medical times Branch daily. ibuprofen 2020-1 Yes [id number] 800mg Take 1 [facility] 800 mg 0-08 tablet by ity of tablet 00:00: mouth [place] 00 every 6 Medical (six) Branch hours as needed for Pain (scale 4-6). psyllium 2020-1 Yes [id number] 3{packe Take 3 [facility] 3.4 gram 0-08 t} Packets by ity o f packet 00:00: mouth 3 [place] 00 (three) Medical times Branch daily. diphenoxyla 2020-1 Yes [id number] 1{tbl} Take 1 [facility] te-atropine 0-08 tablet by ity of 2.5-0.025 00:00: mouth [place] mg tablet 00 every 8 Medical (eight) Branch hours. loperamide 2020-1 Yes [id number] 4mg Take 2 [facility] n[facility] 2 mg 0-08 capsules [facility] of capsule 00:00: by mouth 4 [place] 00 (four) Medical times Branch daily. ibuprofen 2019-08 Yes [id number] 800mg Take 1 [facility] n[facility] 800 mg 0-08 tablet by ity of tablet 00:00: mouth [place] 00 every 6 Medical (six) Branch hours as needed for Pain (scale 4-6). acetaminoph 2019-08- No [id number] 650mg Take 2 [facility] en 325 mg 0-08 10-09 tablets by ity of tablet 00:00: 04:59 mouth [place] 00 :00 every 6 Medical (six) Branch hours as needed for Pain (scale 1-3). acetaminoph 2019-08- No [id number] 650mg Take 2 [facility] en 325 mg 0-08 10-09 tablets by ity of tablet 00:00: 04:59 mouth [place] 00 :00 every 6 Medical (six) Branch hours as needed for Pain (scale 1-3). acetaminoph 2019-08 No [id number] 650mg Take 2 [facility] en 325 mg 0-08 10-09 tablets by ity of tablet 00:00: 04:59 mouth [place] 00 :00 every 6 Medical (six) Branch hours as needed for Pain (scale 1-3). acetaminoph 2019-08- No [id number] 650mg Take 2 [facility] en 325 mg 0-08 10-09 tablets by ity of tablet 00:00: 04:59 mouth [place] 00 :00 every 6 Medical (six) Branch hours as needed for Pain (scale 1-3). acetaminoph 2019-08 No [id number] 650mg Take 2 [facility] en 325 mg 0-08 10-09 tablets by ity of tablet 00:00: 04:59 mouth [place] 00 :00 every 6 Medical (six) Branch hours as needed for Pain (scale 1-3). acetaminoph 2019-08- No [id number] 650mg Take 2 [facility] en 325 mg 0-08 10-09 tablets by ity of tablet 00:00: 04:59 mouth [place] 00 :00 every 6 Medical (six) Branch hours as needed for Pain (scale 1-3). acetaminoph 2019-08- No [id number] 650mg Take 2 [facility] en 325 mg 0-08 10-09 tablets by ity of tablet 00:00: 04:59 mouth [place] 00 :00 every 6 Medical (six) Branch hours as needed for Pain (scale 1-3). acetaminoph 2019-08 No [id number] 650mg Take 2 [facility] en 325 mg 0-08 10-09 tablets by ity of tablet 00:00: 04:59 mouth [place] 00 :00 every 6 Medical (six) Branch hours as needed for Pain (scale 1-3). acetaminoph 2019-08 No [id number] 650mg Take 2 [facility] en 325 mg 0-08 10-09 tablets by ity of tablet 00:00: 04:59 mouth [place] 00 :00 every 6 Medical (six) Branch hours as needed for Pain (scale 1-3). acetaminoph 2019-08 [id number] 650mg Take 2 [facility] en 325 mg 0-08 10-09 tablets by ity of tablet 00:00: 04:59 mouth [place] 00 :00 every 6 Medical (six) Branch hours as needed for Pain (scale 1-3). acetaminoph 2019-08 [id number] 650mg Take 2 [facility] en 325 mg 0-08 10-09 tablets by ity of tablet 00:00: 04:59 mouth [place] 00 :00 every 6 Medical (six) Branch hours as needed for Pain (scale 1-3). acetaminoph 2019-08 [id number] 650mg Take 2 [facility] en 325 mg 0-08 10-09 tablets by ity of tablet 00:00: 04:59 mouth [place] 00 :00 every 6 Medical (six) Branch hours as needed for Pain (scale 1-3). acetaminoph 2019-08 No [id number] 650mg Take 2 [facility] en 325 mg 0-08 10-09 tablets by ity of tablet 00:00: 04:59 mouth [place] 00 :00 every 6 Medical (six) Branch hours as needed for Pain (scale 1-3). acetaminoph 2019-08 No [id number] 650mg Take 2 [facility] en 325 mg 0-08 10-09 tablets by ity of tablet 00:00: 04:59 mouth [place] 00 :00 every 6 Medical (six) Branch hours as needed for Pain (scale 1-3). psyllium 2019-08 No [id number] 3{packe Take 3 [facility] 3.4 gram 0-08 09-16 t} Packets by ity of packet 00:00: 00:00 mouth 3 [place] 00 :00 (three) Medical times Branch daily. diphenoxyla 2019-08 No [id number] 1{tbl} Take 1 [facility] te-atropine 0-08 09-16 tablet by it y of 2.5-0.025 00:00: 00:00 mouth [place] mg tablet 00 :00 every 8 Medical (eight) Branch hours. loperamide 2019-08 No [id number] 4mg Take 2 [facility] 2 mg 0-08 09-16 capsules ity of capsule 00:00: 00:00 by mouth 4 [place] 00 :00 (four) Medical times Branch daily. ibuprofen 2019-08 [id number] 800mg Take 1 [facility] 800 mg 0-08 09-16 tablet by ity of tablet 00:00: 00:00 mouth [place] 00 :00 every 6 Medical (six) Branch hours as needed for Pain (scale 4-6). acetaminoph 2019-08 No [id number] 650mg Take 2 [facility] en 325 mg 0-08 09-16 tablets by ity of tablet 00:00: 00:00 mouth [place] 00 :00 every 6 Medical (six) Branch hours as needed for Pain (scale 1-3). psyllium 2019-08 No [id number] 3{packe Take 3 [facility] 3.4 gram 0-08 09-16 t} Packets by ity of packet 00:00: 00:00 mouth 3 [place] 00 :00 (three) Medical times Branch daily. diphenoxyla 2019-08 No [id number] 1{tbl} Take 1 [facility] te-atropine 0-08 09-16 tablet by it y of 2.5-0.025 00:00: 00:00 mouth [place] mg tablet 00 :00 every 8 Medical (eight) Branch hours. loperamide 2019-08 No [id number] 4mg Take 2 [facility] 2 mg 0-08 09-16 capsules ity of capsule 00:00: 00:00 by mouth 4 [place] 00 :00 (four) Medical times Branch daily. ibuprofen 2019-08 No [id number] 800mg Take 1 [facility] 800 mg 0-08 09-16 tablet by ity of tablet 00:00: 00:00 mouth [place] 00 :00 every 6 Medical (six) Branch hours as needed for Pain (scale 4-6). acetaminoph 2019-08- [id number] 650mg Take 2 [facility] en 325 mg 0-08 09-16 tablets by ity of tablet 00:00: 00:00 mouth [place] 00 :00 every 6 Medical (six) Branch hours as needed for Pain (scale 1-3). acetaminoph 2019-08- No [id number] 650mg Take 2 [facility] en 325 mg 0-08 10-08 tablets by ity of tablet 00:00: 00:00 mouth [place] 00 :00 every 6 Medical (six) Branch hours as needed for Pain (scale 1-3). ibuprofen 2019-08- No [id number] 800mg Take 1 [facility] 800 mg 0-08 10-08 tablet by ity of tablet 00:00: 00:00 mouth [place] 00 :00 every 6 Medical (six) Branch hours as needed for Pain (scale 4-6). loperamide 2019-08- No [id number] 4mg Take 2 [facility] 2 mg 0-08 10-08 capsules ity of capsule 00:00: 00:00 by mouth 4 [place] 00 :00 (four) Medical times Branch daily. diphenoxyla 2019-08- No [id number] 1{tbl} Take 1 [facility] te-atropine 0-08 10-08 tablet by it y of 2.5-0.025 00:00: 00:00 mouth [place] mg tablet 00 :00 every 8 Medical (eight) Branch hours. psyllium 2019-08- No [id number] 3{packe Take 3 [facility] 3.4 gram 0-08 [...] Medi mariusz (8 %) IV 05/29/20 at Bran h Piggyback 4 0730, g Routine magnesium 2019-08 [...] First dose [place] SINGLES) 00 :14 on [place] [facility] 3.4 gram 05/27/20 at [facility] packet 1 1999, Packet Until Discontinu ed, Routine loperamide 2019-08 2020- No 4mg 4 mg, Unive rs (IMODIUM 0-04 10-05 Oral, TID, ity of A-D) 19:00: 12:56 First dose [place] capsule 4 00 :31 (after Medical mg last Branch modificati on) on [place] 05/27/20 at 1400, Until Discontinu ed, Routine magnesium 2020-1 2020- No 2g 2 g, IV Univ ers sulfate in 0-04 10-04 Piggyback, it y of water 2 13:00: 12:28 ONCE, 1 [place] gram/50 mL 00 :00 dose, Sun Medi mariusz (4 %) 05/27/20 at [place] infusion 2 0800, g Routine lactated 2019- Yes 1000mL at 999 Unive rs ringers [...] Medi mariusz (8 %) IV 05/24/20 at [facility] h Piggyback 4 1715, g Routine iohexoL 2019-08 2020- No 50mL 50 mL, Univers (OMNIPAQUE 0-05-24 Injection, it y of 300-50 mL)) 17:45: 17:37 ONCE, 1 [place] injection 00 :00 dose, [place] [facility] al 50 mL 05/24/20 at Branch 1245, Routine FENTanyl PF 2019- 2020- No Slow IV Un piyush (SUBLIMAZE 005-24 Push, PRN, it y of (PF)) 17:00: 17:26 Starting [place] injection 30 :44 [place] [facility] 05/24/20 at Branch 1200, Until Discontinu ed, Routine midazolam 2019-08 No IV Push, Uni vers (VERSED) 005-24 PRN, ity of injection 17:00: 17:00 Starting [place] 16 :16 [facility] Medical 05/24/20 at Branch 1200, Until Discontinu ed, Routine FENTanyl PF 2019-08 No Slow IV Un pi[place]ush (SUBLIMAZE 05-24 Push, PRN, it y of (PF)) 16:01: 16:01 Starting [place] injection 03 :03 [facility] Medical 05/24/20 at Branch 1101, Until Discontinu ed, Routine loperamide 2019-08 No 2mg 2 mg, Unive rs (IMODIUM 05-25 Oral, BID, ity of A-D) 13:00: 12:33 First dose [place] capsule 2 00 :17 on [place] [facility] mg 05/24/20 at Branch 0800, Until Discontinu ed, Routine iohexol No 100mL 100 mL, Unive rs (OMNIPAQUE 05-23 Intravenou it y of 350 14:54: 14:54 s, ONCE, 1 [place] BULK-100 00 :00 dose, Thu Medica l mL) 05/23/20 at [place] injection 1015, 100 mL Routine docusate No 100mg 100 mg, Univ ers (COLACE) 05-2302 Oral, ity of capsule 100 14:00: 17:31 DAILY, [place] mg 00 :24 First dose Medical on Thu Branch 05/23/20 at 0900, Until Discontinu ed, Routine levoFLOXaci 2019- No 750mg 750 mg, U nivers n 05-2307 Oral, Q24H ity of (LEVAQUIN) 04:30: 18:00 ABX, First [place] tablet 750 00 :16 dose on Medica l mg Thu [place] 05/22/20 at 2330, Until Discontinu ed, JOÃO
[...] Discontinu ed, Routine, Pain (scale 4-6) acetaminoph 2020-0 Yes 650mg 650 mg, Un piyush en 05-23 Oral, ity of (TYLENOL) 03:13: Q6HPRN, [place] tablet 650 36 Starting Medic al mg [facility] Branch 05/22/20 at 2213, Until Discontinu ed, Routine, Pain (scale 1-3) morpHINE 2020-0 2020- No 4mg 4 mg, Slow Un piy[place] injection 4 05-22 IV Push, ity of mg 03:30: 03:13 ONCE, 1 [place] 00 :00 dose, [facility] 05/21/20 at Branch 2230, STAT piperacilli 2020-0 2020- No 3.375g 3.375 g, Univers n-tazobacta 05-20 IV ity of m (ZOSYN) 10:15: 22:14 [place], [place] 3.375 g in 00 :00 ONCE, 1 Medica l NaCl 0.9% dose, [facility] h (NS) 100 mL 05/20/20 at MINI-BAG [...] ity of mg 03:45: 03:36 ONCE, 1 [place] 00 :00 dose, Sat Medical 05/19/20 at Branch 2245, STAT NaCl 0.9% 2019-0 2020- No 1000mL at 999 Uni vers (NS) bolus 05-20 mL/hr, ity of infusion 03:45: 11:13 1,000 mL, [place] 1,000 mL 00 :00 [facility] ONCE, 1 dose, 05/19/20 at 2245, STAT ibuprofen 2020-0 Yes [id number] 800mg Take 1 U nivers 800 mg 9-18 tablet by ity of tablet 00:00: mouth [place] 00 every 6 Medical (six) Branch hours as needed for Pain (scale 4-6). levoFLOXaci 2020-0 Yes [id number] 750mg Take 1 [facility] n 750 mg 9-18 tablet by ity of tablet 00:00: mouth [place] 00 every 24 Medical (twenty-fo Branch ur) hours. loperamide 2020-0 Yes [id number] 2mg Take 1 U nivers 2 mg 9-18 capsule by ity of capsule 00:00: mouth [place] 00 daily. Medical Branch ibuprofen 2020-0 Yes [id number] 800mg Take 1 U nivers 800 mg 9-18 tablet by ity of tablet 00:00: mouth [place] 00 every 6 Medical (six) Branch hours as needed for Pain (scale 4-6). levoFLOXaci 2020-0 Yes [id number] 750mg Take 1 [facility] n 750 mg 9-18 tablet by ity of tablet 00:00: mouth [place] 00 every 24 Medical (twenty-fo Branch ur) hours. loperamide 2020-0 Yes [id number] 2mg Take 1 U nivers 2 mg 9-18 capsule by ity of capsule 00:00: mouth [place] 00 daily. Medical Branch ibuprofen 2020-0 Yes [id number] 800mg Take 1 U nivers 800 mg 9-18 tablet by ity of tablet 00:00: mouth [place] 00 every 6 Medical (six) Branch hours as needed for Pain (scale 4-6). levoFLOXaci 2020-0 Yes [id number] 750mg Take 1 [facility] n 750 mg 9-18 tablet by ity of tablet 00:00: mouth [place] 00 every 24 Medical (twenty-fo Branch ur) hours. loperamide 2020-0 Yes [id number] 2mg Take 1 U nivers 2 mg 9-18 capsule by ity of capsule 00:00: mouth [place] 00 daily. Medical Branch ibuprofen 2020-0 Yes [id number] 800mg Take 1 U nivers 800 mg 9-18 tablet by ity of tablet 00:00: mouth [place] 00 every 6 Medical (six) Branch hours as needed for Pain (scale 4-6). levoFLOXaci 2020-0 Yes [id number] 750mg Take 1 [facility] n 750 mg 9-18 tablet by ity of tablet 00:00: mouth [place] 00 every 24 Medical (twenty-fo Branch ur) hours. loperamide 2020-0 Yes [id number] 2mg Take 1 U nivers 2 mg 9-18 capsule by ity of capsule 00:00: mouth [place] 00 daily. Medical Branch ibuprofen 2020-0 Yes [id number] 800mg Take 1 U nivers 800 mg 9-18 tablet by ity of tablet 00:00: mouth [place] 00 every 6 Medical (six) Branch hours as needed for Pain (scale 4-6). levoFLOXaci 2020-0 Yes [id number] 750mg Take 1 [facility] n 750 mg 9-18 tablet by ity of tablet 00:00: mouth [place] 00 every 24 Medical (twenty-fo Branch ur) hours. loperamide 2020-0 Yes [id number] 2mg Take 1 U nivers 2 mg 9-18 capsule by ity of capsule 00:00: mouth [place] 00 daily. Medical Branch ibuprofen 2020-0 Yes [id number] 800mg Take 1 U nivers 800 mg 9-18 tablet by ity of tablet 00:00: mouth [place] 00 every 6 Medical (six) Branch hours as needed for Pain (scale 4-6). levoFLOXaci 2020-0 Yes [id number] 750mg Take 1 [facility] n 750 mg 9-18 tablet by ity of tablet 00:00: mouth [place] 00 every 24 Medical (twenty-fo Branch ur) hours. loperamide 2020-0 Yes [id number] 2mg Take 1 U nivers 2 mg 9-18 capsule by ity of capsule 00:00: mouth [place] 00 daily. Medical Branch ibuprofen 2020-0 Yes [id number] 800mg Take 1 U nivers 800 mg 9-18 tablet by ity of tablet 00:00: mouth [place] 00 every 6 Medical (six) Branch hours as needed for Pain (scale 4-6). levoFLOXaci 2020-0 Yes [id number] 750mg Take 1 [facility] n 750 mg 9-18 tablet by ity of tablet 00:00: mouth [place] 00 every 24 Medical (twenty-fo Branch ur) hours. loperamide 2020-0 Yes [id number] 2mg Take 1 U nivers 2 mg 9-18 capsule by ity of capsule 00:00: mouth [place] 00 daily. Medical Branch ibuprofen 2020-0 Yes [id number] 800mg Take 1 U nivers 800 mg 9-18 tablet by ity of tablet 00:00: mouth [place] 00 every 6 Medical (six) Branch hours as needed for Pain (scale 4-6). levoFLOXaci 2020-0 Yes [id number] 750mg Take 1 [facility] n 750 mg 9-18 tablet by ity of tablet 00:00: mouth [place] 00 every 24 Medical (twenty-fo Branch ur) hours. loperamide 2020-0 Yes [id number] 2mg Take 1 U nivers 2 mg 9-18 capsule by ity of capsule 00:00: mouth [place] 00 daily. Medical Branch ibuprofen 2020-0 Yes [id number] 800mg Take 1 U nivers 800 mg 9-18 tablet by ity of tablet 00:00: mouth [place] 00 every 6 Medical (six) Branch hours as needed for Pain (scale 4-6). levoFLOXaci 2020-0 Yes [id number] 750mg Take 1 [facility] n 750 mg 9-18 tablet by ity of tablet 00:00: mouth [place] 00 every 24 Medical (twenty-fo Branch ur) hours. loperamide 2020-0 Yes [id number] 2mg Take 1 U nivers 2 mg 9-18 capsule by ity of capsule 00:00: mouth [place] 00 daily. Medical Branch ibuprofen 2020-0 Yes [id number] 800mg Take 1 U nivers 800 mg 9-18 tablet by ity of tablet 00:00: mouth [place] 00 every 6 Medical (six) Branch hours as needed for Pain (scale 4-6). levoFLOXaci 2020-0 Yes [id number] 750mg Take 1 [facility] n 750 mg 9-18 tablet by ity of tablet 00:00: mouth [place] 00 every 24 Medical (twenty-fo Branch ur) hours. loperamide 2020-0 Yes [id number] 2mg Take 1 U nivers 2 mg 9-18 capsule by ity of capsule 00:00: mouth [place] 00 daily. Medical Branch ibuprofen 2020-0 Yes [id number] 800mg Take 1 U nivers 800 mg 9-18 tablet by ity of tablet 00:00: mouth [place] 00 every 6 Medical (six) Branch hours as needed for Pain (scale 4-6). levoFLOXaci 2020-0 Yes [id number] 750mg Take 1 [facility] n 750 mg 9-18 tablet by ity of tablet 00:00: mouth [place] 00 every 24 Medical (twenty-fo Branch ur) hours. loperamide 2020-0 Yes [id number] 2mg Take 1 U nivers 2 mg 9-18 capsule by ity of capsule 00:00: mouth [place] 00 daily. Medical Branch ibuprofen 2020-0 Yes [id number] 800mg Take 1 U nivers 800 mg 9-18 tablet by ity of tablet 00:00: mouth [place] 00 every 6 Medical (six) Branch hours as needed for Pain (scale 4-6). levoFLOXaci 2020-0 Yes [id number] 750mg Take 1 [facility] n 750 mg 9-18 tablet by ity of tablet 00:00: mouth [place] 00 every 24 Medical (twenty-fo Branch ur) hours. loperamide 2020-0 Yes [id number] 2mg Take 1 U nivers 2 mg 9-18 capsule by ity of capsule 00:00: mouth [place] 00 daily. Medical Branch ibuprofen 2020-0 Yes [id number] 800mg Take 1 U nivers 800 mg 9-18 tablet by ity of tablet 00:00: mouth [place] 00 every 6 Medical (six) Branch hours as needed for Pain (scale 4-6). levoFLOXaci 2020-0 Yes [id number] 750mg Take 1 [facility] n 750 mg 9-18 tablet by ity of tablet 00:00: mouth [place] 00 every 24 Medical (twenty-fo Branch ur) hours. loperamide 2020-0 Yes [id number] 2mg Take 1 U nivers 2 mg 9-18 capsule by ity of capsule 00:00: mouth [place] 00 daily. Medical Branch acetaminoph [id number] 650mg Take 2 [facility] en 325 mg 9-18 09-19 tablets by ity of tablet 00:00: 04:59 mouth [place] 00 :00 every 6 Medical (six) Branch hours as needed for Pain (scale 1-3). acetaminoph [id number] 650mg Take 2 [facility] en 325 mg 9-18 09-19 tablets by ity of tablet 00:00: 04:59 mouth [place] 00 :00 every 6 Medical (six) Branch hours as needed for Pain (scale 1-3). acetaminoph [id number] 650mg Take 2 [facility] en 325 mg 9-18 09-19 tablets by ity of tablet 00:00: 04:59 mouth [place] 00 :00 every 6 Medical (six) Branch hours as needed for Pain (scale 1-3). acetaminoph [id number] 650mg Take 2 [facility] en 325 mg 9-18 09-19 tablets by ity of tablet 00:00: 04:59 mouth [place] 00 :00 every 6 Medical (six) Branch hours as needed for Pain (scale 1-3). acetaminoph [id number] 650mg Take 2 [facility] en 325 mg 9-18 09-19 tablets by ity of tablet 00:00: 04:59 mouth [place] 00 :00 every 6 Medical (six) Branch hours as needed for Pain (scale 1-3). acetaminoph No [id number] 650mg Take 2 Univers en 325 mg 9-18 09-19 tablets by ity of tablet 00:00: 04:59 mouth [place] 00 :00 every 6 Medical (six) Branch hours as needed for Pain (scale 1-3). acetaminoph [id number] 650mg Take 2 Univers en 325 mg 9-18 09-19 tablets by ity of tablet 00:00: 04:59 mouth [place] 00 :00 every 6 Medical (six) Branch hours as needed for Pain (scale 1-3). acetaminoph No [id number] 650mg Take 2 Univers en 325 mg 9-18 09-19 tablets by ity of tablet 00:00: 04:59 mouth [place] 00 :00 every 6 Medical (six) Branch hours as needed for Pain (scale 1-3). acetaminoph [id number] 650mg Take 2 Univers en 325 mg 9-18 09-19 tablets by ity of tablet 00:00: 04:59 mouth [place] 00 :00 every 6 Medical (six) Branch hours as needed for Pain (scale 1-3). acetaminoph [id number] 650mg Take 2 Univers en 325 mg 9-18 09-19 tablets by ity of tablet 00:00: 04:59 mouth [place] 00 :00 every 6 Medical (six) Branch hours as needed for Pain (scale 1-3). acetaminoph [id number] 650mg Take 2 Univers en 325 mg 9-18 09-19 tablets by ity of tablet 00:00: 04:59 mouth [place] 00 :00 every 6 Medical (six) Branch hours as needed for Pain (scale 1-3). acetaminoph [id number] 650mg Take 2 Univers en 325 mg 9-18 09-19 tablets by ity of tablet 00:00: 04:59 mouth [place] 00 :00 every 6 Medical (six) Branch hours as needed for Pain (scale 1-3). acetaminoph [id number] 650mg Take 2 Univers en 325 mg 9-18 09-19 tablets by ity of tablet 00:00: 04:59 mouth [place] 00 :00 every 6 Medical (six) Branch hours as needed for Pain (scale 1-3). acetaminoph [id number] 650mg Take 2 Univers en 325 mg 9-18 10-08 tablets by ity of tablet 00:00: 00:00 mouth [place] 00 :00 every 6 Medical (six) Branch hours as needed for Pain (scale 1-3). ibuprofen [id number] 800mg Take 1 Univers 800 mg 9-18 10-08 tablet by ity of tablet 00:00: 00:00 mouth [place] 00 :00 every 6 Medical (six) Branch hours as needed for Pain (scale 4-6). levoFLOXaci [id number] 750mg Take 1 Univers n 750 mg 9-18 10-08 tablet by ity o f tablet 00:00: 00:00 mouth [place] 00 :00 every 24 Medical (twenty-fo Branch ur) hours. loperamide 2019- No [id number] 2mg Take 1 Univers 2 mg 9-18 [...] 7 days. Indication s: acute pain HYDROcodone 2020-0 2020- No [id number] 1{tbl} Take 1 U nivers -acetaminop 05-11 tablet by it y of hen 5-325 00:00: 04:59 mouth [place] mg tablet 00 :00 every 6 Medical (six) Branch hours as needed for Pain (scale 4-6) for up to 7 days. Indication s: acute pain levoFLOXaci 2020-0 Yes 750mg 750 mg, Un piyush n - Oral, Q24H ity of (LEVAQUIN) 00:00: ABX, [...] Medic al s, ONCE, 1 Branch dose, [facility] 05/07/20 at 1715, Routine lactated 2020-0 2020- No 1000mL at 999 Univ ers ringers IV 05-07 mL/hr, ity of infusion 13:15: 14:09 1,000 mL, [place] 1,000 mL 00 :00 Intravenou Medic al s, ONCE, 1 Branch dose, [facility] 05/07/20 at 0815, Routine HYDROcodone 2020-0 Yes 1{tbl} 1 tablet, Univers -acetaminop 05-07 Oral, ity of hen (NORCO 13:00: Q6HPRN, [place] 5) 5-325 mg 00 Starting [facility] tablet 1 Mon [place] tablet 05/07/20 at 0800, Until Discontinu ed, Routine, Pain (scale 4-6) magnesium 2020-0 2020- No 2g 2 g, IV [facility] ers sulfate in 05-07 Piggyback, it y of water 2 13:00: 15:10 ONCE, 1 [place] gram/50 mL 00 :00 dose, [facility] (4 %) 05/07/20 at [place] infusion 2 0800, g Routine ibuprofen 2020-0 Yes 800mg 800 mg, Univ ers (IBU) 05-07 Oral, ity of tablet 800 12:45: Q6HPRN, [place] mg 22 Starting [facility] 05/07/20 at 0745, Until Discontinu ed, Routine, Pain (scale 4-6) FENTanyl PF 2020-0 2020- No Slow IV Un piyush (SUBLIMAZE 05-05 Push, PRN, it y of (PF)) 18:53: 20:05 Starting [place] injection 39 :03 [facility] 05/05/20 at [place] 1353, Until Discontinu ed, Routine lidocaine 2020-0 2020- No PRN, Univers 1% (PF) 05-05 Starting ity of (XYLOCAINE) 18:26: 18:26 Sat [place] injection 34 :34 05/05/20 at [facility] 1326 Branch Until Discontinu ed, Routine NaCl 0.9% 2020-0 2020- No CONTINUOUS U nivers (NS) bolus 05-05 PRN, ity of infusion 18:15: 18:15 Starting [place] 06 :06 [facility] 05/05/20 at Branch 1315, Until Discontinu ed, STAT D5W 0.45% 2019- 2020- No IV Univers NaCl 05-05 Infusion, ity of (1/2NS) 1 L 09:30: 14:01 at 100 [place] + KCL 20 00 :57 mL/hr, Medical mEq CONTINUOUS Branch , Starting 05/05/20 at 0430, Until 05/06/20 at 0901, Routine metroNIDAZO 2019- No 500mg 500 mg, IV Univers LE in NaCl 05-05 Infusion, ity of (iso-os) 07:30: 16:36 Q8H ABX, [place] (FLAGYL 00 :33 First dose Medica l I.V.) RTU on [facility] IV infusion 05/05/20 at 500 mg 0230, Until Discontinu ed, 100 mL
Reas on for Anti-Infec tive: Empiric Therapy for Suspected Infection< br>Empiric Therapy Site: Skin / Soft tissue
Duration of therapy: 7 days levoFLOXaci 2019- No 750mg 750 mg, IV Univers n in D5W 05-05 Piggyback, ity of (LEVAQUIN) 07:30: 16:36 Administer [place] 750 mg/150 00 :33 over 90 Medica l mL Minutes, [place] Piggyback Q24H ABX, 750 mg First dose on 05/05/20 at 0230, Until Discontinu ed, JOÃO
Re ason for Anti-Infec tive: Documented Infection< br>Documen dain Infection Site: Abdominal< br>Duratio n of Therapy: 7 days morpHINE 2019- No 2mg 2 mg, Slow Un piyush [...] 05-05 Oral, ity of (TYLENOL) 06:15: Q6HPRN, [place] tablet 650 23 Starting Medic al mg [...]
Fa culty member approving Restricted medication : NABIL BAEZSEBASTIAN Jessica traMADoL 2019-0 Yes [id number] 50mg Take 1 Univers (ULTRAM) 50 9-10 tablet by ity of mg tablet 00:00: mouth [place] 00 every 6 Medical (six) Branch hours as needed for Pain (scale 7-10). Indication s: acute pain traMADoL 2019-0 Yes [id number] 50mg Take 1 Univers (ULTRAM) 50 9-10 tablet by ity of mg tablet 00:00: mouth [place] 00 every 6 Medical (six) Branch hours as needed for Pain (scale 7-10). Indication s: acute pain traMADoL 2019-0 Yes 4647 50mg Take 1 Univers (ULTRAM) [...] Indication s: acute pain ibuprofen 2020-0 Yes [id number] 400mg Take 2 Univers 200 mg 9-08 tablets by ity of tablet 00:00: mouth [place] 00 every 6 Medical (six) Branch hours as needed for Pain (scale 1-3). ibuprofen 2020-0 Yes [id number] 400mg Take 2 Univers 200 mg 9-08 tablets by ity of tablet 00:00: mouth [place] 00 every 6 Medical (six) Branch hours as needed for Pain (scale 1-3). ibuprofen 2020-0 Yes [id number] 400mg Take 2 Univers 200 mg 9-08 tablets by ity of tablet 00:00: mouth [place] 00 every 6 Medical (six) Branch hours as needed for Pain (scale 1-3). ibuprofen 2020-0 Yes [id number] 400mg Take 2 Univers 200 mg 9-08 tablets by ity of tablet 00:00: mouth [place] 00 every 6 Medical (six) Branch hours as needed for Pain (scale 1-3). ibuprofen 2020-0 Yes [id number] 400mg Take 2 Univers 200 mg 9-08 tablets by ity of tablet 00:00: mouth [place] 00 every 6 Medical (six) Branch hours as needed for Pain (scale 1-3). ibuprofen 2020-0 Yes [id number] 400mg Take 2 Univers 200 mg 9-08 tablets by ity of tablet 00:00: mouth [place] 00 every 6 Medical (six) Branch hours as needed for Pain (scale 1-3). ibuprofen 2020-0 Yes [id number] 400mg Take 2 Univers 200 mg 9-08 tablets by ity of tablet 00:00: mouth [place] 00 every 6 Medical (six) Branch hours as needed for Pain (scale 1-3). acetaminoph 2019-0 2020- No [id number] 650mg Take 2 Univers en 9-08 09-09 tablets by ity of (TYLENOL) 00:00: 04:59 mouth [place] 325 mg 00 :00 every 6 Medical tablet (six) Branch hours as needed for Pain (scale 4-6). acetaminoph 2019-0 2020- No [id number] 650mg Take 2 Univers en 05-01 tablets by ity of (TYLENOL) 00:00: 04:59 mouth [place] 325 mg 00 :00 every 6 Medical tablet (six) Branch hours as needed for Pain (scale 4-6). acetaminoph 2020- No [id number] 650mg Take 2 Univers en 05-01 tablets by ity of (TYLENOL) 00:00: 04:59 mouth [place] 325 mg 00 :00 every 6 Medical tablet (six) Branch hours as needed for Pain (scale 4-6). acetaminoph 2020- No [id number] 650mg Take 2 Univers en 05-01 tablets by ity of (TYLENOL) 00:00: 04:59 mouth [place] 325 mg 00 :00 every 6 Medical tablet (six) Branch hours as needed for Pain (scale 4-6). acetaminoph 2020- No [id number] 650mg Take 2 Univers en 05-01 tablets by ity of (TYLENOL) 00:00: 04:59 mouth [place] 325 mg 00 :00 every 6 Medical tablet (six) Branch hours as needed for Pain (scale 4-6). acetaminoph 2020- No [id number] 650mg Take 2 Univers en 05-01 tablets by ity of (TYLENOL) 00:00: 04:59 mouth [place] 325 mg 00 :00 every 6 Medical tablet (six) Branch hours as needed for Pain (scale 4-6). acetaminoph 2020- No [id number] 650mg Take 2 Univers en 05-01 tablets by ity of (TYLENOL) 00:00: 04:59 mouth [place] 325 mg 00 :00 every 6 Medical tablet (six) Branch hours as needed for Pain (scale 4-6). ciprofloxac 2019-2019- No [id number] 750mg Take 1 Univers in HCl 750 05-01 tablet by ity of mg tablet 00:00: 04:59 mouth [place] 00 :00 every 12 Medical (twelve) Branch hours for 14 days. amoxicillin 2019-2019- No [id number] 1{tbl} Take 1 Univers -clavulanat 05-01 tablet by it y of e 00:00: 04:59 mouth 2 [place] (AUGMENTIN) 00 :00 (two) Medical 875-125 mg times Branch per tablet daily for 14 days. ciprofloxac 2020-0 2019- No [id number] 750mg Take 1 Univers in HCl 750 05-01 tablet by ity of mg tablet 00:00: 04:59 mouth [place] 00 :00 every 12 Medical (twelve) Branch hours for 14 days. amoxicillin 2019-2019- No [id number] 1{tbl} Take 1 Univers -clavulanat 05-01 tablet by it y of e 00:00: 04:59 mouth 2 [place] (AUGMENTIN) 00 :00 (two) Medical 875-125 mg times Branch per tablet daily for 14 days. ciprofloxac 2019-2019- No [id number] 750mg Take 1 Univers in HCl 750 05-01 tablet by ity of mg tablet 00:00: 04:59 mouth [place] 00 :00 every 12 Medical (twelve) Branch hours for 14 days. amoxicillin 2019-2019- No [id number] 1{tbl} Take 1 Univers -clavulanat 05-01 tablet by it y of e 00:00: 04:59 mouth 2 [place] (AUGMENTIN) 00 :00 (two) Medical 875-125 mg times Branch per tablet daily for 14 days. ciprofloxac 2019-2019- No [id number] 750mg Take 1 Univers in HCl 750 05-01 tablet by ity of mg tablet 00:00: 04:59 mouth [place] 00 :00 every 12 Medical (twelve) Branch hours for 14 days. amoxicillin 2019-2019- No [id number] 1{tbl} Take 1 Univers -clavulanat 05-01 tablet by it y of e 00:00: 04:59 mouth 2 [place] (AUGMENTIN) 00 :00 (two) Medical 875-125 mg times Branch per tablet daily for 14 days. ciprofloxac 2019-2019- No [id number] 750mg Take 1 Univers in HCl 750 05-01 tablet by ity of mg tablet 00:00: 04:59 mouth [place] 00 :00 every 12 Medical (twelve) Branch hours for 14 days. amoxicillin 2019-2019- No [id number] 1{tbl} Take 1 Univers -clavulanat 05-01 tablet by it y of e 00:00: 04:59 mouth 2 [place] (AUGMENTIN) 00 :00 (two) Medical 875-125 mg times Branch per tablet daily for 14 days. ciprofloxac 2020-0 2020- No [id number] 750mg Take 1 Univers in HCl 750 05-01 tablet by ity of mg tablet 00:00: 04:59 mouth [place] 00 :00 every 12 Medical (twelve) Branch hours for 14 days. amoxicillin 2019-0 2020- No [id number] 1{tbl} Take 1 Univers -clavulanat 05-01 tablet by it y of e 00:00: 04:59 mouth 2 [place] (AUGMENTIN) 00 :00 (two) Medical 875-125 mg times Branch per tablet daily for 14 days. ciprofloxac 2019-0 2019- No [id number] 750mg Take 1 Univers in HCl 750 05-01 tablet by ity of mg tablet 00:00: 04:59 mouth [place] 00 :00 every 12 Medical (twelve) Branch hours for 14 days. amoxicillin 2019-0 2019- No [id number] 1{tbl} Take 1 Univers -clavulanat 05-01 tablet by it y of e 00:00: 04:59 mouth 2 [place] (AUGMENTIN) 00 :00 (two) Medical 875-125 mg times Branch per tablet daily for 14 days. acetaminoph 2020-0 2020- No [id number] 650mg Take 2 Univers en 05-01 tablets by ity of (TYLENOL) 00:00: 00:00 mouth [place] 325 mg 00 :00 every 6 Medical tablet (six) Branch hours as needed for Pain (scale 4-6). ibuprofen 2020-0 2020- No [id number] 400mg Take 2 Univers 200 mg 05-01 tablets by ity of tablet 00:00: 00:00 mouth [place] 00 :00 every 6 Medical (six) Branch hours as needed for Pain (scale 1-3). ciprofloxac 2020-0 2020- No [id number] 750mg Take 1 Univers in HCl 750 05-01 tablet by ity of mg tablet 00:00: 00:00 mouth [place] 00 :00 every 12 Medical (twelve) Branch hours for 14 days. amoxicillin 2020-0 2020- No [id number] 1{tbl} Take 1 Univers -clavulanat 05-01-18 tablet by it y of e 00:00: 00:00 mouth 2 [place] (AUGMENTIN) 00 :00 (two) Medical 875-125 mg times Branch per tablet daily for 14 days. lactated 2020-0 2020- No 1000mL at 999 [facility] ers ringers IV 04-25 09-02 mL/hr, ity of infusion 14:15: 13:31 1,000 mL, [place] 1,000 mL 00 :00 Intravenou Medic al s, ONCE, 1 Branch dose, 04/25/20 at 0915, Routine amoxicillin 2020-0 Yes 1{tbl} 1 tablet, Univers -clavulanat 04-25 Oral, ity of e 01:00: Q12H, [place] (AUGMENTIN) 00 First dose Me dical 875-125 [...] 0.9% 2020-0 2020- No 1000mL at 999 [facility] vers (NS) bolus 04-23-31 mL/hr, ity of infusion 16:30: 16:14 1,000 mL, [place] 1,000 mL 00 :00 IV Medical [facility] [place] ONCE, 1 dose, 04/23/20 at 1130, STAT micafungin 2019-0 2020- No 100mg 100 mg, IV Univers [...] 00 First dose Med ical mg on [facility] 04/21/20 at 1800, Until Discontinu ed, JOÃO
Re ason for Anti-Infec tive: Documented Infection< br>Documen dain Infection Site: Abdominal< br>Duratio n of Therapy: 7 days aspirin 2019-0 Yes 81mg 81 mg, Univers chewable 04-21 Oral, ity of tablet 81 14:00: DAILY, [place] mg 00 First dose Medical on [facility] 04/21/20 at 0900, Until Discontinu ed, Routine multivitami 2019-0 Yes 1{tbl} 1 tablet, Univers n tablet 1 04-21 Oral, ity of tablet 14:00: DAILY, [place] 00 First dose Medical on [facility] 04/21/20 at 0900, Until Discontinu ed, Routine amoxicillin 2019-0 2020- No 500mg 500 mg, U nivers -pot 04-21 Oral, TID, ity of clavulanate 13:00: 14:44 First dose [place] 500 mg 00 :32 on [facility] (AUGMENTIN 04/21/20 at [facility] 500) 0800, 500-125 mg Until tablet 500 Discontinu mg ed, JOÃO
Re ason for Anti-Infec tive: Documented Infection< br>Documen dain Infection Site: Abdominal< br>Duratio n of Therapy: 7 days ciprofloxac 2019- 2020- No 400mg 400 mg, IV Univers in in 5 % 04-20 Piggyback, ity of dextrose 22:45: 14:44 Administer [place] (CIPRO) 00 :32 over 60 Medical piggyback Minutes, Branch 400 mg Q12H ABX, First dose on Thu04/20/20 at 1745, Until Discontinu ed, JOÃO
Re ason for Anti-Infec tive: Documented Infection< br>Documen dain Infection Site: Abdominal< br>Duratio n of Therapy: 7 days traMADoL 2020- No 50mg 50 mg, Univer s (ULTRAM) 04-2009 Oral, ity of tablet 50 15:31: 11:12 Q6HPRN, [place] mg 23 :14 Starting Medical Fri Branch 04/20/20 at 1031, Until 05/02/20 at 0612, Routine, Pain (scale 7-10) D5W [...] First dose Medi mariusz 40 mg on [place] Branch 04/19/20 at 0900, Until Discontinu ed, Routine acetaminoph 2019-0 Yes 500mg 500 mg, Un piyush en 04-19 Oral, ity of (TYLENOL) 11:00: Q6HPRN, [place] tablet 500 00 Starting Medic al mg [place] Branch 04/19/20 at 0600, Until Discontinu ed, [...] :34 First dose Med ical mg on Thu04/17/20 at 2045, Until Discontinu ed, JOÃO
Re [...] [place] mg 09 :33 Starting Medical Tue Branch 04/17/20 at 1211, Until Thu04/20/20 at 1031, Routine, Pain (scale 4-6), Pain (scale 7-10) aspirin 2020- No 325mg 325 mg, Unive rs tablet 325 04-17 Oral, ity of mg 14:00: 15:33 DAILY, [place] 00 :03 First dose Medical on [facility] 04/17/20 at 0900, Until Discontinu ed, Routine lidocaine 2019- 2020- No PRN, Univers 1% (PF) 04-16 Starting ity of (XYLOCAINE) 21:17: 21:17 Mon [place] injection 53 :53 04/16/20 at [facility] 1617, Branch Until [facility] 04/16/20 at 1617, Routine FENTanyl PF 2019- 2020- No Slow IV Un piyush (SUBLIMAZE 04-16 Push, PRN, it y of (PF)) 21:16: 21:16 Starting [place] injection 07 :07 [facility] Medical 04/16/20 at Branch 1616, Until [facility] 04/16/20 at 1616, Routine midazolam 2019- No IV Push, Uni vers (VERSED) 04-16 PRN, ity of injection 21:16: 21:16 Starting [place] 07 :07 [facility] Medical 04/16/20 at [place] 1616, Until [facility] 04/16/20 at 1616, Routine piperacilli 2019- No 3.375g 3.375 g, Univers n-tazobacta 04-16 IV ity of m (ZOSYN) 18:15: 12:34 Piggyback, [place] 3.375 g in 00 :59 Q6H ABX, Medic al NaCl 0.9% First dose Bran ch (NS) 100 mL on [facility] MINI-BAG 04/16/20 at 1315, Until Discontinu ed, 100 mL
R mitali for Anti-Infec tive: Documented Infection< br>Documen dain Infection Site: Abdominal< br>Duratio n of Therapy: 7 days iohexol 2019- 2020- No 120mL 120 mL, Unive rs (OMNIPAQUE 04-16 Intravenou it y of 350 07:15: 06:55 s, ONCE, 1 [place] BULK-150 00 :00 dose, Mon Medica l mL) 04/16/20 at [place] injection 0215, 120 mL Routine DAPTOmycin 2019- [...] Branch TITRATE, Starting 04/14/20 at 0701, Until Tu04/24/20 at 1252, Routine D5W 0.45% 2019- No [...] Routine, Pain (scale 7-10) FENTanyl PF 2019- 2020- No Slow IV Un piyush (SUBLIMAZE 04-13 Push, PRN, it y of (PF)) 19:31: 19:55 Starting [place] injection 48 :00 Fri Medical 04/13/20 at Branch 1431, Until Thu04/13/20 at 1455, Routine midazolam 2019-0 2020- No IV Push, Uni vers (VERSED) 04-13 PRN, ity of injection 19:31: 19:55 Starting [place] 36 :00 Fri Medical 04/13/20 at Branch 1431, Until 04/13/20 at 1455, Routine DAPTOmycin 2019- No 500mg 500 mg, IV Univers (CUBICIN) 04-13 Piggyback, ity of 500 mg in 01:00: 00:59 Q24H ABX, [place] NaCl 0.9% 00 :00 4 doses, Medica l (NS) First dose Branch piggyback (after last modificati on) on [facility] 04/12/20 at 1999, Last dose on 04/15/20 at 1999, 100 mL
Reas on for Anti-Infec tive: Empiric Therapy for Suspected Infection< br>Empiric Therapy Site: Abdominal< br>Duratio n of therapy: 7 days<br&gt ;Restricte d use approved by: [employer] ampicillin- 2020- No 3g 3 g, IV Un pyiush sulbactam 04-13 Piggyback, ity of (UNASYN) 3 01:00: 17:09 Q8H ABX, [place] g in NaCl 00 :25 First dose Medi mariusz 0.9% (NS) (after Branch 100 mL last MINI-BAG modificati on) on [facility] 04/12/20 at 1999, Until Discontinu ed, 100 [...] mL First dose Br anch MINI-BAG on [facility] 04/12/20 at 1800, Last dose on 04/16/20 [...] Branch injection 1630, 100 mL Routine piperacilli 2019- No 3.375g 3.375 g, Univers n-tazobacta 04-12 [...] n of therapy: 72 hours ketorolac 2019- No 15mg 15 mg, Unive rs (TORADOL) [...] mL/hr, Medical mEq CONTINUOUS Branch , Starting Thu04/11/20 at 0900, Until [place] 04/12/20 at 1644, [...] at 0815, Until Discontinu ed, Routine enoxaparin 2019-0 2020- No 40mg 40 mg, Univ ers (LOVENOX) 04-11 09 Subcutaneo ity of injection 13:00: 00:44 us, [...] modificati on) on Thu04/10/20 at 1700 magnesium 2019-2019- No 4g 4 g, IV Univ ers sulfate in 04-10 Piggyback, it y of water 4 13:30: 13:41 ONCE, 1 [place] gram/50 mL 00 :00 dose, [facility] Medi mariusz (8 %) IV 04/10/20 at Branc h Piggyback 4 0830, g Routine DAPTOmycin 2019- No 500mg 500 mg, IV Univers (CUBICIN) 04-10 Piggyback, ity of 500 mg in 06:00: 15:57 Q24H ABX, [place] NaCl 0.9% 00 :33 First dose Medi mariusz (NS) on [facility] piggyback 04/10/20 at 0100, Until Discontinu ed, 100 mL
R mitali for Anti-Infec tive: Documented Infection< br>Documen dain Infection Site: Abdominal< br>Duratio n of Therapy: 7 days
Re stricted use approved by: [employer] ibuprofen 2019- No 600mg 600 mg, Uni vers (IBU) 04-10 Oral, Q8H, ity of tablet 600 03:00: 10:59 First dose [place] mg 00 :06 on [facility] 04/09/20 at Branch 2200, Until Discontinu ed, Routine micafungin 2019- No 100mg 100 mg, IV Univers (MYCAMINE) 04-10 Piggyback, it y of 100 mg in 02:45: 15:57 Q24H ABX, [place] NaCl 0.9% 00 :33 First dose Medi mariusz (NS) 100 mL on [facility] MINI-BAG 04/09/20 at 2145, Until Discontinu ed, [...] First dose Medi mariusz 0.9% (NS) on [facility] Branch 100 mL 04/09/20 at MINI-BAG 2145, Until Discontinu ed, 100 mL
Reas on for Anti-Infec tive: Documented Infection< br>Documen dain Infection Site: Abdominal< br>Duratio n of Therapy: 7 days acetaminoph 2019- 2020- No 500mg 500 mg, U nivers en 04-09 Oral, Q6H, ity of (TYLENOL) 23:00: 10:54 First dose [place] tablet 500 00 :23 on [facility] Medical mg 04/09/20 at Branch 1800, [...] in 20 :43 Starting Medica l lactated [facility] ringers 04/09/20 at 1,000 mL 1243, infusion [...] 00 :18 Mon Medical solution 04/09/20 at Branc h 0800, Until Discontinu ed, Routine magnesium 2019-2019- No 2g 2 g, IV Univ ers sulfate in 04-09 Piggyback, it y of water 2 12:00: 12:00 ONCE, 1 [place] gram/50 mL 00 :00 dose, Mon Medi mariusz (4 %) 04/09/20 at Branch infusion 2 0700, g Routine potassium 2020- No 44meq 44 mEq, IV Univers [...] on 04/08/20 at 1200, Last dose on [facility] 04/09/20 at 0600, Routine
Indicatio n: Perioperat ector Patient acetaminoph 0 2020- No 1000mg 1,000 mg, Univers en ADULT 04-07 IV ity of (OFIRMEV) 23:00: 14:28 Infusion, [place] injection 00 :31 Administer Medi mariusz 1,000 mg over 15 Branch Minutes, Q6H, 4 doses, First dose (after last reorder) on [facility] 04/07/20 at 1800, Last dose on 04/08/20 at 1200, Routine
Indicatio n: Perioperat ector Patient D5W-LR IV 2019-0 2020- No 1000mL at 60 Univ ers infusion 8-15 08-16 mL/hr, IV ity o f 1,000 [...] IV ity of IV 20:00: 01:35 Piggyback, [place] Piggyback 00 :07 Q24H ABX, Medic al [...] [place] 5,000 Units 00 :30 us, Q8H, [facility] mariusz First dose Branch on 04/07/20 at [...] 2200, Until 04/07/20 at 0343, Routine hydrocortis 2019- No 50mg 50 mg, IV Univers one sod 04-07 Piggyback, ity o f succ 02:00: 02:09 Q6H, First [place] (CORTEF) 50 00 :14 dose on Medic al mg in NaCl Fri Branch 0.9% (NS) 04/06/20 at piggyback 2100, Until Discontinu ed, 50 mL sodium Yes 1{bottl 473 mL (1 Uni vers [...] on Thu04/06/20 at 1800, Last dose on Thu04/07/20 at 1200, Routine
Indicatio n: Perioperat ector Patient albumin 2019-0 2020- No 25g 25 g, IV Unive [...] substantia l amounts of crystalloi ds. perflutren 2019-2019- No 3mL 3 mL, IV Un piyush [...] o f succ 21:15: 22:41 ONCE, 1 [place] (CORTEF) 00 :00 dose, Fri Medica l [...] , Starting Thu04/06/20 at 1600 magnesium 2019- 2020- No 4g 4 g, IV Univ ers sulfate in 04-06 Piggyback, it y of water 4 21:00: 00:03 ONCE, 1 [place] gram/50 mL 00 :00 dose, Fri Medi mariusz (8 %) IV 04/06/20 at Branc h Piggyback 4 1600, g Routine lactated 2020- No 1000mL at 999 Univ ers ringers IV 8-14 08-14 mL/hr, ity of infusion 20:01: 20:15 1,000 mL, [place] 1,000 mL 00 :00 Intravenou Medic al s, ONCE, 1 Branch dose, Thu04/06/20 at 1515, STAT meropenem 2019- No 1000mg 1,000 mg, Univers (MERREM) 04-06 08-18 IV ity of 1,000 mg in 19:30: 01:35 Piggyback, [place] NaCl 0.9% 00 :07 Administer Medi mariusz [...] 2019- No .2ug/kg 0.2-1.5 Univers dine 200 04-06-14 /h mcg/kg/hr ity o f mcg in [...] IV Medical Infusion, Branch CONTINUOUS , Starting 04/06/20 at 1115, Until 04/06/20 at 1330, Routine sodium 2020-0 2020- No ONCE INTRA Univ ers bicarbonate 04-06 PROCEDURE, i ty of 8.4 % (1 16:10: 16:29 [place] mEq/mL) 00 :35 Fri Medical injection 04/06/20 at [facility] 1110, Until Thu04/06/20 at 1129, Routine, Intra-op sodium 2020-0 2020- No ONCE INTRA Univ ers bicarbonate 04-06 PROCEDURE, i ty of 8.4 % (1 16:10: 16:29 Starting [place] mEq/mL) 00 :35 Fri Medical injection 04/06/20 at [facility] 1110, Until Thu04/06/20 at 1129, Routine, Intra-op calcium 2020-0 2020- No ONCE INTRA Uni vers chloride 04-06 PROCEDURE, ity of 100 mg/mL 16:09: 16:29 Starting [place] (10 %) 00 :35 Fri Medical syringe 04/06/20 at Branch 1109, Until 04/06/20 at 1129, Routine, Intra-op calcium 2020-0 2020- [...] Fri Medical 04/06/20 at Branch 1039, Until 04/06/20 at 1129, Routine, Intra-op midazolam 2020-0 2020- No ONCE INTRA U nivers (VERSED) 04-06 PROCEDURE, ity of injection 15:39: 16:29 Starting [place] 00 :35 Fri Medical 04/06/20 at [place] 1039, Until Thu04/06/20 at 1129, Routine, Intra-op EPINEPHrine 2020-0 2020- No CONTINUOUS Univers 1 mg in 04-06 PRN, ity of NaCl 0.9% 15:29: 16:29 Starting [place] (NS) 00 :35 Fri Medical infusion 04/06/20 at [facility] 1029, Until Thu04/06/20 at 1129, Routine, Intra-op EPINEPHrine 2020-0 2020- No CONTINUOUS Univers 1 mg in 04-06 PRN, ity of NaCl 0.9% 15:29: 16:29 Starting [place] (NS) 00 :35 Fri Medical infusion 04/06/20 at [facility] 1029, Until Thu04/06/20 at 1129, Routine, Intra-op piperacilli 2020-0 2020- No CONTINUOUS Univers n-tazobacta 04-06 PRN, ity of m (ZOSYN) 14:57: 16:29 Starting [place] 3.375 g in 00 :35 Fri Medical NaCl 0.9% 04/06/20 at [facility] (NS) 100 mL 0957, infusion Until Discontinu ed, 100 mL, Intra-op piperacilli 2020-0 2020- No CONTINUOUS Univers n-tazobacta 04-06 PRN, ity of m (ZOSYN) 14:57: 16:29 Starting [place] 3.375 g in 00 :35 Fri Medical NaCl 0.9% 04/06/20 at [facility] (NS) 100 mL 0957, infusion Until Discontinu ed, 100 mL, Intra-op EPINEPHrine 2020-0 2020- No ONCE INTRA Univers 1:1,000 (1 04-06 PROCEDURE, it y of mg/mL) 14:54: 16:29 Starting [place] (ADRENALIN) 00 :35 Fri Medical injection 04/06/20 at [facility] 0954, Until Discontinu ed, Routine, Intra-op EPINEPHrine 2020-0 2020- No ONCE INTRA Univers 1:1,000 (1 04-06 PROCEDURE, it y of mg/mL) 14:54: 16:29 Starting [place] (ADRENALIN) 00 :35 Fri Medical injection 04/06/20 at [facility] 0954, Until Discontinu ed, Routine, Intra-op NORepinephr 2020-0 2020- No CONTINUOUS Univers ine 04-06 PRN, ity of (LEVOPHED) 14:39: 16:29 [place] 4 mg in 00 :35 Fri Medical NaCl 0.9% 04/06/20 at [facility] (NS) 250 mL 0939, infusion Intra-op NORepinephr 2020-0 2020- No CONTINUOUS Univers ine 04-06 PRN, ity of (LEVOPHED) 14:39: 16:29 [place] 4 mg in 00 :35 Fri Medical NaCl 0.9% 04/06/20 at [facility] (NS) 250 mL 0939, infusion Intra-op rocuronium 2019-0 2020- No IV Push, Un [place]yush (ZEMURON) 04-06 ONCE INTRA ity of injection 14:36: 16:29 PROCEDURE, [place] 00 :35 Starting Medical [facility] Branch 04/06/20 at 0936, Until Thu04/06/20 at 1129, Routine, Intra-op rocuronium 2020-0 2020- No IV Push, Un [place] (ZEMURON) 04-06 ONCE INTRA ity of injection 14:36: 16:29 PROCEDURE, [place] 00 :35 Starting Medical [facility] Branch 04/06/20 at 0936, Until Thu04/06/20 at 1129, Routine, Intra-op phenylephri 2020-0 2020- No Intravenou Univers ne 04-06- s, ONCE ity of (VAZCULEP) 14:22: 16:29 INTRA [place] injection 00 :35 PROCEDURE, [facility] Starting Branch 04/06/20 at 0922, Until Thu04/06/20 at 1129, Routine, Intra-op phenylephri 2020-0 2020- No Intravenou Univers ne 04-06 s, ONCE ity of (VAZCULEP) 14:22: 16:29 INTRA [place] injection 00 :35 PROCEDURE, [facility] mariusz Starting Branch 04/06/20 at 0922, Until [...] Fri Medical mL (1 %) 04/06/20 at [facility] h injection 0915, Until Thu04/06/20 [...] of 14:15: 16:29 Starting [place] 00 :35 [facility] 04/06/20 at Branch 0915, Until Thu04/06/20 at 1129, Routine, Intra-op lidocaine 2020-0 2020- No ONCE INTRA U nivers 1% 04-06 PROCEDURE, ity of (XYLOCAINE) 14:15: 16:29 Starting [place] 100 mg/10 00 :35 [facility] Medical mL (1 %) 04/06/20 at [facility] h injection 0915, Until Thu04/06/20 at 1129, Routine, Intra-op FENTanyl PF 2020-0 2020- No ONCE INTRA Univers (SUBLIMAZE 04-06 PROCEDURE, it y of (PF)) 14:15: 16:29 Starting [place] injection 00 :35 [facility] 04/06/20 at Branch 0915, Until Thu04/06/20 at 1129, Routine, Intra-op albumin 2020-0 2020- No CONTINUOUS Uni vers (ALBUMINAR- 04-06 PRN, ity of 5) 5 % 14:10: 16:29 Starting [place] injection 00 :35 [facility] 04/06/20 at Branch 0910, Until Discontinu ed, Intra-op lactated 2020-0 2020- No CONTINUOUS Un piyush ringers IV 04-06 PRN, ity of infusion 14:10: 16:29 Starting [place] 00 :35 [facility] 04/06/20 at Branch 0910, Until Discontinu ed, Routine, Intra-op albumin 2020-0 2020- No CONTINUOUS Uni vers (ALBUMINAR- 04-06 PRN, ity of 5) 5 % 14:10: 16:29 Starting [place] injection 00 :35 [facility] 04/06/20 at Branch 0910, Until Discontinu ed, Intra-op lactated 2020-0 2020- No CONTINUOUS Un piyush ringers IV 04-06 PRN, ity of infusion 14:10: 16:29 Starting [place] 00 :35 [facility] 04/06/20 at Branch 0910, Until Discontinu ed, Routine, Intra-op lactated 2020-0 2020- No 1000mL at 999 Univ ers ringers IV 04-06 mL/hr, ity of infusion 12:30: 12:37 1,000 mL, [place] 1,000 mL 00 :00 Intravenou Medic al s, ONCE, 1 Branch dose, 04/06/20 at 0730, Routine methocarbam 2019- 2020- No 1000mg 1,000 mg, Univers ol 04-06 Intravenou ity of (ROBAXIN) 03:00: 16:15 s, Q8H, [place] injection 00 :46 First dose Medi mariusz 1,000 mg on [place] Branch 04/05/20 at 2200, Until Discontinu ed, Routine pantoprazol 2019-2019- No 40mg 40 mg, IV Univers e 04-06 Piggyback, ity of (PROTONIX) 01:00: 11:53 Q12H, [place] 40 mg in 00 :30 First dose Medic al NaCl 0.9% on [place] Branch (NS) 100 mL 04/05/20 at MINI-BAG 2000, Until Discontinu ed, 100 mL acetaminoph 2019- No 1000mg 1,000 mg, Univers en ADULT 04-05 IV ity of (OFIRMEV) 23:00: 22:59 Infusion, [place] injection 00 :00 Administer Medi mariusz 1,000 mg over 15 Branch Minutes, Q6H, 4 doses, First dose on [place] 04/05/20 at 1800, Last dose on Thu04/06/20 at 1200, Routine
Indicatio n: Perioperat ector Patient D5W 0.45% 2019- No IV Univers NaCl 04-05 Infusion, ity of (1/2NS) 1 L 19:15: 11:04 at 125 [place] + KCL 20 00 :54 mL/hr, Medical mEq CONTINUOUS Branch , Starting [place] 04/05/20 at 1415, Until Thu04/06/20 at 0604, Routine acetaminoph 2019-2019- No 650mg 650 mg, U nivers en 04-05 Oral, Q6H, ity of (TYLENOL) 17:00: 20:23 First dose [place] 160 mg/5 mL 00 :52 on [place] Medica l liquid 650 04/05/20 at Bra nch mg 1200, Until Discontinu ed, Routine methocarbam 2019- 2020- No 500mg 500 mg, U nivers ol 04-05 Oral, QID, ity of (ROBAXIN) 13:00: 20:23 First dose [place] tablet 500 00 :52 on [place] Medical mg 04/05/20 at Branch 0800, Until Discontinu ed, Routine acetaminoph 2019- 2020- No 1000mg 1,000 mg, [...] at 0900, Until Discontinu ed, Routine pantoprazol 2019-0 2020- No 40mg 40 mg, Uni vers e 8-12 08-13 Oral, ity of (PROTONIX) 14:00: 20:23 DAILY, [place] EC tablet 00 :52 First dose Medi mariusz 40 mg on Thu Branch 04/04/20 at 0900, Until Discontinu ed, Routine gabapentin 2020- No 300mg 300 mg, Un piyush [...] h Piggyback 4 0715, g Routine ketorolac 2019- No 30mg 30 mg, Unive rs (TORADOL) 04-04 Slow IV ity of injection 05:00: 16:23 Push, Q6H, [place] 30 mg 00 :00 3 doses, Medical First dose Branch (after last modificati on) on Thu04/04/20 at 0000, Last dose on Thu04/04/20 at 1200, Routine
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
Indicatio n: Perioperat ector Patient ondansetron Yes 4mg 4 mg, Slow Univers (ZOFRAN 04-03 IV Push, ity of (PF)) 21:27: Q6HPRN, [place] injection 4 26 Starting Medi mariusz mg [facility] 04/03/20 at 1627, Until Discontinu ed, Routine, Nausea and Vomiting (N/V) alvimopan 2019- No 12mg 12 mg, Unive rs (ENTEREG) 04-03 Oral, ity of capsule 12 13:45: 14:02 ONCE, 1 [place] mg 00 :00 dose, [facility] 04/03/20 at Branch 0845, Routine
Restricte d use approved by: HELENE MEDELLIN - SURGERY/GE NERAL heparin 2020- No 5000U 5,000 Univers (porcine) 04-03 Units, ity of injection 12:00: 12:02 Subcutaneo [place] 5,000 Units 00 :00 , ONCE, Med ical 1 dose, [facility] 04/03/20 at 0700, Routine gabapentin 2019- No 300mg 300 mg, Un piyush (NEURONTIN) 04-03 Oral, ity of 250 mg/5 mL 12:00: 12:02 ONCE, 1 [place] solution 00 :00 [facility] Branch 0700, Routine D5W 0.45% 2019- No IV Univers NaCl 04-02 Infusion, ity of (1/2NS) 1 L 23:30: 17:59 at 125 [place] as + KCL 20 00 :42 mL/hr, Medical mEq CONTINUOUS Branch , Starting 04/02/20 at 1830, Until 04/04/20 at 1259, Routine NaCl 0.9% 2019-2019- No 1000mL at 999 Uni vers (NS) [...] First dose Medic al NaCl 0.9% on [place] Branch (NS) 100 mL 04/01/20 at MINI-BAG 1915, Until Discontinu ed, 100 mL D5W 0.45% 2020-0 2020- No IV Univers NaCl 04-02 Infusion, ity of (1/2NS) 1 L 00:15: 23:16 at 150 [place] + KCL 20 00 :16 mL/hr, Medical mEq CONTINUOUS Branch , Starting [place] 04/01/20 at 1915, Until 04/02/20 at 1816, Routine acetaminoph 2019- 2020- No 650mg 650 mg, U nivers en 04-01 Oral, ity of (TYLENOL) 23:11: 21:31 Q6HPRN, [place] tablet 650 57 :27 Starting Medic al mg [place] 04/01/20 Branch at 1811, Until 04/03/20 at 1631, Routine, Pain (scale 1-3), Pain (scale 4-6) NaCl 0.9% 0 2020- No 1000mL at 999 Uni vers (NS) bolus 04-01 mL/hr, ity of infusion 23:10: 00:18 1,000 mL, [place] 1,000 mL 00 :00 IV Medical Piggyback, Branch ONCE, 1 dose, [place] 04/01/20 at 1815, STAT lactulose 2019-0 2020- No 15mL 15 mL, Unive rs (CEPHULAC) 04-01 Oral, ity of solution 15 16:15: 16:01 ONCE, 1 [place] mL 00 :00 dose, [facility] 04/01/20 at Branch 1115, Routine Polyethylen 2019-0 2020- No 17g 17 g, Univ ers e Glycol 03-31 Oral, BID ity o f 3350 15:45: 23:13 MEALS, [place] (MIRALAX) 00 :14 First dose Medi mariusz powder 17 g on [facility] Branch 03/31/20 at 1045, Until Discontinu ed, Routine enoxaparin 2019-0 2020- No 40mg 40 mg, Univ ers (LOVENOX) 03-31 Subcutaneo ity of injection 14:00: 10:50 us, DAILY, [place] 40 mg 00 :07 First dose Medical on Sat Branch 03/31/20 at 0900, Until Discontinu ed, Routine D5W-LR IV 2019-0 2020- No 1000mL at 125 Uni vers infusion 03-31 mL/hr, IV ity o f 1,000 mL 03:00: 23:13 Infusion, [place] 00 :14 CONTINUOUS Medical , Starting Branch Thu03/30/20 at 2200, Until Thu04/01/20 at 1813, Routine ondansetron 2019- No 4mg 4 mg, Slow Univers (ZOFRAN 03-31 IV Push, ity of (PF)) 01:51: 21:31 Q6HPRN, [place] injection 4 28 :27 Starting Medi mariusz mg 03/30/20 Branch at 2051, Until 04/03/20 at 1631, Routine, Nausea and Vomiting (N/V) iohexol 2019-2019- No 100mL 100 mL, Unive rs (OMNIPAQUE 03-31 Intravenou it y of 350 00:15: 21:08 s, ONCE, 1 [place] BULK-100 00 :00 dose, Fri Medica l mL) 03/30/20 at Branch injection 1915, 100 mL Routine ondansetron 2019- No 4mg 4 mg, [...] Branch 03/30/20 at 1815, Routine NaCl 0.9% 2020- No 1000mL at 999 Uni vers (NS) bolus 03-30 mL/hr, ity of infusion 22:15: 23:43 1,000 mL, [place] 1,000 mL 00 :00 IV Medical Infusion, Branch ONCE, 1 dose, 8/7/20 at 1715, JOÃO metoclopram 2020-0 2020- No 5mg 5 mg, Slow Univers tammi HCl 8-05 08-06 IV Push, ity of (REGLAN) 01:00: 00:59 Q12H, 2 [place] injection 5 00 :00 doses, Medica l mg First dose Branch on Thu03/27/20 at 2000, Last dose on Thu03/28/20 at 0800, Routine metoclopram 2020-0 Yes [id number] 5mg Take 1 Univers tammi HCl 8-05 tablet by ity of (REGLAN) 5 00:00: mouth [place] mg tablet 00 every 12 Medica l (twelve) Branch hours as needed for Nausea and Vomiting (N/V) (constipat ion). metoclopram 2020-0 Yes [id number] 5mg Take 1 Univers tammi HCl 8-05 tablet by ity of (REGLAN) 5 00:00: mouth [place] mg tablet 00 every 12 Medica l (twelve) Branch hours as needed for Nausea and Vomiting (N/V) (constipat ion). metoclopram 2020-0 Yes [id number] 5mg Take 1 Univers tammi HCl 8-05 tablet by ity of (REGLAN) 5 00:00: mouth [place] mg tablet 00 every 12 Medica l (twelve) Branch hours as needed for Nausea and Vomiting (N/V) (constipat ion). metoclopram 2020-0 Yes [id number] 5mg Take 1 Univers tammi HCl 8-05 tablet by ity of (REGLAN) 5 00:00: mouth [place] mg tablet 00 every 12 Medica l (twelve) Branch hours as needed for Nausea and Vomiting (N/V) (constipat ion). metoclopram 2020-0 2020- No [id number] 5mg Take 1 Univers tammi HCl 8-05 [...] 1000mL at 100 Uni vers infusion 03-27 0804 mL/hr, IV ity o f 1,000 mL [...] Routine
Indica tion: Perioperat ector Patient metoclopram 0 2019- No 5mg 5 mg, Slow Univers tammi [...] IV Push, ity of (PF)) 02:46: Q6HPRN, [place] injection 4 11 Starting Medi mariusz mg [place] 03/25/20 Branch at 2146, Until Discontinu ed, Routine, Nausea and Vomiting (N/V) acetaminoph 2020-0 Yes 650mg 650 mg, Un piyush en 03-26 Oral, ity of (TYLENOL) 02:46: Q6HPRN, [place] tablet 650 05 Starting Medic al mg [place] 03/25/20 Branch at 2146, Until Discontinu ed, Routine, Pain (scale 1-3) iohexol 2019-0 2020- No 100mL 100 mL, Unive rs (OMNIPAQUE 03-26 Intravenou it y of 350 01:30: 01:30 s, ONCE, 1 [place] BULK-100 00 :00 dose, [place] Medica l mL) 03/25/20 at Branch injection 2030, 100 mL Routine NaCl 0.9% 2020-0 2020- No 1000mL at 999 Uni vers (NS) bolus 03-26 mL/hr, ity of infusion 00:45: 00:42 1,000 mL, [place] 1,000 mL 00 :00 IV Medical Infusion, Branch ONCE, 1 dose, 03/25/20 at 1945, JOÃO enoxaparin 2020-0 Yes 40mg 40 mg, Unive rs (LOVENOX) 03-03 Subcutaneo ity of injection 14:00: us, DAILY, [place] 40 mg 00 First dose Medical on Sat Branch 03/03/20 at 0900, Until Discontinu ed, Routine lactated 2020-0 Yes 1000mL at 100 Unive rs ringers IV 7-11 mL/hr, ity of infusion 04:15: 1,000 mL, [place] 1,000 mL 00 IV Medical Infusion, Branch CONTINUOUS , Starting 03/02/20 at 2315, Until Discontinu ed, Routine ondansetron 2020-0 Yes 4mg 4 mg, Slow Univers (ZOFRAN 03-03 IV Push, ity of (PF)) 04:05: Q6HPRN, [place] injection 4 40 Starting Medi mariusz mg Fri Branch 03/02/20 at 2305, Until Discontinu ed, Routine, Nausea and Vomiting (N/V) acetaminoph 2020-0 Yes 650mg 650 mg, Un piyush en 11 Oral, ity of (TYLENOL) 04:05: Q6HPRN, [place] tablet 650 30 Starting Medic al mg Fri Branch 03/02/20 at 2305, Until Discontinu ed, Routine, Pain (scale 1-3) Polyethylen 2020-0 Yes [id number] 17g Take 1 Univers e Glycol 7-07 Packet by ity of 3350 17 00:00: mouth [place] gram powder 00 daily. Medica l Branch Polyethylen 2020-0 Yes [id number] 17g Take 1 Univers e Glycol 7-07 Packet by ity of 3350 17 00:00: mouth [place] gram powder 00 daily. Medica l Branch Polyethylen 2020-0 Yes [id number] 17g Take 1 Univers e Glycol 7-07 Packet by ity of 3350 17 00:00: mouth [place] gram powder 00 daily. Medica l Branch Polyethylen 2020-0 Yes [id number] 17g Take 1 Univers e Glycol 7-07 Packet by ity of 3350 17 00:00: mouth [place] gram powder 00 daily. Medica l Branch Polyethylen 2020-0 2020- No [id number] 17g Take 1 Univers e Glycol 7-07 08-05 Packet by ity o f 3350 17 00:00: 00:00 mouth [place] gram powder 00 :00 daily. Medica l Branch Polyethylen 2020-0 Yes 17g 17 g, Unive rs e Glycol 7-06 Oral, ity of 3350 18:15: DAILY, [place] (MIRALAX) 00 First dose Medi mariusz powder 17 g on [facility] 02/27/20 at 1315, Until Discontinu ed, Routine enoxaparin 2020-0 Yes 40mg 40 mg, Unive rs (LOVENOX) 7-06 Subcutaneo ity of injection 14:00: us, DAILY, [place] 40 mg 00 First dose Medical on [facility] 02/27/20 at 0900, Until Discontinu ed, Routine polyethylen 2020-0 Yes [id number] 17g Take 17 g Univers e glycol 17 7-06 by mouth ity of gram/dose 00:00: daily. [place] powder 00 [facility] polyethylen 2020-0 Yes [id number] 17g Take 17 g Univers e glycol 17 7-06 by mouth ity of gram/dose 00:00: daily. [place] powder 00 [facility] polyethylen 2020-0 Yes [id number] 17g Take 17 g Univers e glycol 17 7-06 by mouth ity of gram/dose 00:00: daily. [place] powder 00 [facility] polyethylen 2020-0 Yes [id number] 17g Take 17 g Univers e glycol 17 7-06 by mouth ity of gram/dose 00:00: daily. [place] powder 00 [facility] polyethylen 2020-0 Yes [id number] 17g Take 17 g Univers e glycol 17 7-06 by mouth ity of gram/dose 00:00: daily. [place] powder 00 [facility] polyethylen 2020-0 Yes [id number] 17g Take 17 g Univers e glycol 17 7-06 by mouth ity of gram/dose 00:00: daily. [place] powder 00 [facility] polyethylen 2020-0 Yes [id number] 17g Take 17 g Univers e glycol 17 7-06 by mouth ity of gram/dose 00:00: daily. [place] powder 00 [facility] polyethylen 2020-0 Yes [id number] 17g Take 17 g Univers e glycol 17 7-06 by mouth ity of gram/dose 00:00: daily. [place] powder 00 [facility] polyethylen 2020-0 2020- No [id number] 17g Take 17 g Univers e glycol 17 7- 09-08 by mouth ity of gram/dose 00:00: 00:00 daily. [place] powder 00 :00 [facility] iohexol 2019- No 120mL 120 mL, Unive rs (OMNIPAQUE 02-25 Intravenou it y of 350 18:30: 18:30 s, ONCE, 1 [place] BULK-100 00 :00 dose, [place] [facility] mL) 02/26/20 at Branch injection 1330, 120 mL Routine lactated 2019-0 2019- No 1000mL at 125 Univ ers ringers IV 02-25 07-06 mL/hr, ity of infusion 16:00: 17:57 1,000 mL, [place] 1,000 mL 00 :14 IV Medical Infusion, Branch CONTINUOUS , Starting 02/26/20 at 1100, Until 02/27/20 at 1257, Routine acetaminoph Yes 650mg 650 mg, Un piyush en 705 Oral, ity of (TYLENOL) 15:01: Q6HPRN, [place] tablet 650 46 Starting Medic al mg 02/26/20 Branch at 1001, Until Discontinu ed, Routine, Pain (scale 1-3), Pain (scale 4-6) pantoprazol 2019-0 2020- No [id number] 40mg Take 1 Univers e 40 mg EC 6-08 05-14 tablet by ity of tablet 00:00: 04:59 mouth [place] 00 :00 daily for Medical 90 days. [place] pantoprazol 2019-0 2020- No [id number] 40mg Take 1 Univers e 40 mg EC 6-15 -14 tablet by ity of tablet 00:00: 04:59 mouth [place] 00 :00 daily for Medical 90 days. Branch pantoprazol 2019-0 2020- No [id number] 40mg Take 1 Univers e 40 mg EC 6-15 -14 tablet by ity of tablet 00:00: 04:59 mouth [place] 00 :00 daily for Medical 90 days. Branch pantoprazol 2019-2019- No [id number] 40mg Take 1 Univers e 40 mg EC 6-15 -14 tablet by ity of tablet 00:00: 04:59 mouth [place] 00 :00 daily for Medical 90 days. Branch pantoprazol 2019-0 2019- No [id number] 40mg Take 1 Univers e 40 mg EC 6-15 -14 tablet by ity of tablet 00:00: 04:59 mouth [place] 00 :00 daily for Medical 90 days. Branch pantoprazol 2019-0 2019- No [id number] 40mg Take 1 Univers e 40 mg EC 6-15 14 tablet by ity of tablet 00:00: 04:59 mouth [place] 00 :00 daily for Medical 90 days. Branch pantoprazol 2019-2019- No [id number] 40mg Take 1 Univers e 40 mg EC 6-15 -14 tablet by ity of tablet 00:00: 04:59 mouth [place] 00 :00 daily for Medical 90 days. Branch pantoprazol 2019-0 2019- No [id number] 40mg Take 1 Univers e 40 mg EC 6-15 -14 tablet by ity of tablet 00:00: 04:59 mouth [place] 00 :00 daily for Medical 90 days. Branch pantoprazol 2019-2019- No [id number] 40mg Take 1 Univers e 40 mg EC 6-15 -14 tablet by ity of tablet 00:00: 04:59 mouth [place] 00 :00 daily for Medical 90 days. Branch pantoprazol 2019-0 2019- No [id number] 40mg Take 1 Univers e 40 mg EC 6-15 -14 tablet by ity of tablet 00:00: 04:59 mouth [place] 00 :00 daily for Medical 90 days. Branch pantoprazol 2020-0 2019- No [id number] 40mg Take 1 Univers e 40 mg EC 6-15 -14 tablet by ity of tablet 00:00: 04:59 mouth [place] 00 :00 daily for Medical 90 days. Branch pantoprazol 2019-2019- No [id number] 40mg Take 1 Univers e 40 mg EC 6-15 -14 tablet by ity of tablet 00:00: 04:59 mouth [place] 00 :00 daily for Medical 90 days. Branch pantoprazol 2019-0 2020- No [id number] 40mg Take 1 Univers e 40 mg EC 6-15 09-08 tablet by ity of tablet 00:00: 00:00 mouth [place] 00 :00 daily for Medical 90 days. Branch docusate 2020-0 2020- No [id number] 100mg Take 1 Univers 100 mg 6-14 09-13 capsule by ity of capsule 00:00: 04:59 mouth 2 [place] 00 :00 (two) Medical times Branch daily for 90 days. docusate 2020-0 2020- No [id number] 100mg Take 1 Univers 100 mg 6-14 09-13 capsule by ity of capsule 00:00: 04:59 mouth 2 [place] 00 :00 (two) Medical times Branch daily for 90 days. docusate 2020-0 2020- No [id number] 100mg Take 1 Univers 100 mg 6-14 09-13 capsule by ity of capsule 00:00: 04:59 mouth 2 [place] 00 :00 (two) Medical times Branch daily for 90 days. docusate 2020-0 2020- No [id number] 100mg Take 1 Univers 100 mg 6-14 09-13 capsule by ity of capsule 00:00: 04:59 mouth 2 [place] 00 :00 (two) Medical times Branch daily for 90 days. docusate 2020-0 2020- No [id number] 100mg Take 1 Univers 100 mg 6-14 09-13 capsule by ity of capsule 00:00: 04:59 mouth 2 [place] 00 :00 (two) Medical times Branch daily for 90 days. docusate 2020-0 2020- No [id number] 100mg Take 1 Univers 100 mg 6-14 09-13 capsule by ity of capsule 00:00: 04:59 mouth 2 [place] 00 :00 (two) Medical times Branch daily for 90 days. docusate 2020-0 2020- No [id number] 100mg Take 1 Univers 100 mg 6-14 09-13 capsule by ity of capsule 00:00: 04:59 mouth 2 [place] 00 :00 (two) Medical times Branch daily for 90 days. docusate 2020-0 2020- No [id number] 100mg Take 1 Univers 100 mg 6-14 09-13 capsule by ity of capsule 00:00: 04:59 mouth 2 [place] 00 :00 (two) Medical times Branch daily for 90 days. docusate 2020-0 2020- No [id number] 100mg Take 1 Univers 100 mg 02-04 capsule by ity of capsule 00:00: 04:59 mouth 2 [place] 00 :00 (two) Medical times Branch daily for 90 days. docusate 2020-0 2020- No [id number] 100mg Take 1 Univers 100 mg 02-04 capsule by ity of capsule 00:00: 04:59 mouth 2 [place] 00 :00 (two) Medical times Branch daily for 90 days. docusate 2020-0 2020- No [id number] 100mg Take 1 Univers 100 mg 02-04 capsule by ity of capsule 00:00: 04:59 mouth 2 [place] 00 :00 (two) Medical times Branch daily for 90 days. docusate 2020-0 2020- No [id number] 100mg Take 1 Univers 100 mg 02-04 capsule by ity of capsule 00:00: 04:59 mouth 2 [place] 00 :00 (two) Medical times Branch daily for 90 days. docusate 2020-0 2020- No [id number] 100mg Take 1 Univers 100 mg 02-04 capsule by ity of capsule 00:00: 00:00 mouth 2 [place] 00 :00 (two) Medical times Branch daily for 90 days. pantoprazol 2019-0 Yes 40mg 40 mg, Univ ers e 01-28 Oral, ity of (PROTONIX) 14:00: DAILY, [place] EC tablet 00 First dose Medi mariusz 40 mg on [place] 01/29/20 at 0900, Until Discontinu ed, Routine enoxaparin 2019-0 Yes 40mg 40 mg, Unive rs (LOVENOX) [...] at 0900, Until Discontinu ed, Routine levothyroxi 2019-0 Yes 50ug 50 mcg, Uni vers ne 01-28 Oral, ity of (SYNTHROID) 11:00: QAM-0600, [place] tablet 50 00 First dose Medi mariusz mcg on [place] Branch 01/29/20 at 0600, Until Discontinu ed, Routine simethicone 2020-0 Yes 80mg 80 mg, Univ ers (GAS RELIEF 01-28 Oral, ity of (SIMETHICON 04:45: PC+HS, [place] E)) 00 First dose Medical chewable on Sat Branch tablet 80 01/28/20 at mg 2345, Until Discontinu ed, Routine D5W IV 2020-0 2020- No 1000mL at 50 Univers infusion 01-28 06-14 mL/hr, IV ity o f 1,000 mL 03:45: 18:41 Infusion, [place] 00 :31 CONTINUOUS Medical , Starting Branch [facility] 01/28/20 at 2245, Until [place] 02/05/20 at 1341, Routine bisacodyL 2019-0 2020- No 10mg 10 mg, Unive rs (DULCOLAX) 01-28 Rectal, ity o f suppository 03:00: 02:52 ONCE, 1 [place] 10 mg 00 :00 dose, Sat Medical 01/28/20 at Branch 2200, Routine ondansetron 2019-0 Yes 4mg 4 mg, Slow Univers (ZOFRAN 01-28 IV Push, ity of (PF)) 01:32: Q6HPRN, [place] injection 4 44 Starting Medi mariusz mg 01/28/20 Branch at 2031, Until Discontinu ed, Routine, Nausea and Vomiting (N/V) traMADol 2019-0 2020- No 50mg 50 mg, Univer s (ULTRAM) 01-28 06-09 Oral, ity of tablet 50 01:32: 01:31 Q8HPRN, [place] mg 25 :25 Starting Medical 01/28/20 Branch at 2031, Until 01/30/20 at 2030, Routine, Pain (scale 4-6) acetaminoph 2020-0 Yes 650mg 650 mg, Un piyush en 07 Oral, ity of (TYLENOL) 01:32: Q6HPRN, [place] tablet 650 14 Starting Medic al mg 01/28/20 Branch at 2031, Until Discontinu ed, Routine, Pain (scale 1-3) morpHINE 2020-0 2020- No 4mg 4 mg, Slow Un piyush injection 4 01-28-06 IV Push, ity of mg 00:45: 23:55 ONCE, 1 [place] 00 :00 dose, Sat Medical 01/28/20 at Branch 1945, STAT iohexol 2020-0 2020- No 100mL 100 mL, Unive rs (OMNIPAQUE 01-2807 Intravenou it y of 350 00:00: 00:00 s, ONCE, 1 [place] BULK-100 00 :00 dose, Sat Medica l mL) 01/28/20 at Branch injection 1900, 100 mL Routine ondansetron 2020-0 2020- No 4mg 4 mg, Slow Univers (ZOFRAN 01-27 IV Push, ity of (PF)) 23:15: 23:35 [...] of 350 02:15: 02:11 s, ONCE, 1 [place] BULK-100 00 :00 dose, Tue Medica l mL) 01/24/20 at [place] injection 2114, 100 mL Routine morpHINE 2019- No 4mg 4 mg, Slow Un piyush injection 4 01-24 IV Push, ity of mg 01:45: 00:43 ONCE, 1 [place] 00 :00 dose, Tue Medical 01/24/20 at Branch 2044, Routine ondansetron 2019- No 4mg 4 mg, Slow Univers (ZOFRAN 01-24 IV Push, ity of (PF)) 00:45: 00:58 Administer [place] injection 4 00 :00 over 15 Medic al mg Minutes, Branch ONCE, 1 dose, [facility] 01/24/20 at 1944, STAT NaCl 0.9% 2019- No 1000mL at 999 Uni vers (NS) bolus 01-24 mL/hr, ity of infusion 00:45: 01:15 1,000 mL, Javi as 1,000 mL 00 :00 IV Medical Infusion, [place] ONCE, 1 dose, [facility] 01/24/20 at 1944, JOÃO mineral oil 2020- No [id number] 30mL Take 30 mL Univers oral liquid 12-11-05 by mouth ity of 00:00: 04:59 daily for [place] 00 :00 14 days. [facility] tamsulosin 2019-0 Yes .4mg QD Take 1 [...] (DAILY 04-14 abuse, in tablet by [facility] [employer]) 00:00: 00:00 remission mouth tablet 00 :00 daily. 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 multivitami 2021- No Alcohol 1{tbl} QD Take 1 Lynne n (DAILY 04-14 abuse, in tablet by [employer]) 00:00: 00:00 remission mouth tablet 00 [...] [place] 00 every Medical morning. Branch levothyroxi 2017-0 2020- No 50ug Take 1 Uni vers ne 50 mcg 09-30 06-14 tablet by ity of tablet 00:00: 00:00 mouth [place] 00 :00 every Medical morning. Branch Immunizations Ordered Filled Immunization Date Status Comments [facility] e Immunization Name Name Influenza Virus 2021-06-04 Completed Universit y of Vaccine [facility], 00:00:00 [place] Me dical Preserv and ABX Branch Free 2-64 YRS Influenza Virus 2021-06-04 Completed Universit y of Vaccine [facility], 00:00:00 [place] Me dical Preserv and ABX Branch Free 6 MO-64 YRS Influenza Virus 2021-06-04 Completed Universit y of Vaccine [facility], 00:00:00 [place] Me dical Preserv and ABX Branch Free 6 MO-64 YRS Influenza Virus 2021-06-04 Completed Universit y of Vaccine [facility], 00:00:00 [place] Me dical Preserv and ABX Branch Free 6 MO-64 YRS Influenza Virus 2021-06-04 Completed Universit y of Vaccine [facility], 00:00:00 [place] Me dical Preserv and ABX Branch Free 6 MO-64 YRS Influenza Virus 2021-06-04 Completed Universit y of Vaccine [facility] IM, 00:00:00 [place] Me dical Preserv and ABX Branch Free 6 MO-64 YRS Influenza Virus 2021-06-04 Completed Universit y of Vaccine [facility] IM, 00:00:00 [place] Me dical Preserv and ABX Branch Free 6 MO-64 YRS Influenza Virus 2021-06-04 Completed Universit y of Vaccine [facility], 00:00:00 [place] Me dical Preserv and ABX Branch Free 6 MO-64 YRS Influenza Virus 2021-06-04 Completed Universit y of Vaccine [facility], 00:00:00 [place] Me dical Preserv and ABX Branch Free 6 MO-64 YRS Influenza Virus 2021-06-04 Completed Universit y of Vaccine [facility], 00:00:00 [place] Me dical Preserv and ABX Branch Free 6 MO-64 YRS Influenza Virus 2021-06-04 Completed Universit y of Vaccine [facility], 00:00:00 [place] Me dical Preserv and ABX Branch Free [...] Universit y of Vaccine [facility] IM, 00:00:00 [place] Me dical Preserv and ABX Branch Free [...] y of Vaccine Quad .5 mL 00:00:00 [place] Medical IM 6+ MO Branch Influenza Virus 2020-08-24 Completed Universit y of Vaccine Quad .5 mL 00:00:00 [place] [facility] IM 6+ MO Branch Influenza Virus 2020-08-24 Completed Universit y of Vaccine Quad .5 mL 00:00:00 [place] [facility] IM 6+ MO Branch PPD 2017-04-14 Completed [facility] 00:00:00 PPD 2017-04-14 Completed [facility] 00:00:00 PPD 2017-04-14 Completed [facility] 00:00:00 Influenza Virus 2016-05-16 Completed Universit y of Vaccine [facility] IM 3+ 00:00:00 [facility] Influenza Virus 2016-05-16 Completed Universit y of Vaccine Quad IM 3+ 00:00:00 [facility] Influenza Virus 2016-05-16 Completed Universit y of Vaccine [facility] IM 3+ 00:00:00 [facility] Influenza Virus 2016-05-16 Completed Universit y of Vaccine [facility] IM 3+ 00:00:00 [facility] Influenza Virus 2016-05-16 Completed Universit y of Vaccine [facility] IM 3+ 00:00:00 [facility] Influenza Virus 2016-05-16 Completed Universit y of Vaccine [facility] IM 3+ 00:00:00 [facility] Influenza Virus 2016-05-16 Completed Universit y of Vaccine [facility] IM 3+ 00:00:00 [facility] Influenza Virus 2016-05-16 Completed Universit y of Vaccine [facility] IM 3+ 00:00:00 [facility] Influenza Virus 2016-05-16 Completed Universit y of Vaccine [facility] IM 3+ 00:00:00 [facility] Influenza Virus 2016-05-16 Completed Universit y of Vaccine [facility] IM 3+ 00:00:00 [facility] Influenza Virus 2016-05-16 Completed Universit y of Vaccine [facility] IM 3+ 00:00:00 [facility] Influenza Virus 2016-05-16 Completed Universit y of Vaccine [facility] IM 3+ 00:00:00 [facility] Influenza Virus 2016-05-16 Completed Universit y of Vaccine [facility] IM 3+ 00:00:00 [facility] Influenza Virus 2016-05-16 Completed Universit y of Vaccine Quad IM 3+ 00:00:00 [facility] Influenza Virus 2016-05-16 Completed Universit y of Vaccine Quad IM 3+ 00:00:00 [facility] Influenza Virus 2016-05-16 Completed Universit y of Vaccine Quad IM 3+ 00:00:00 [facility] Influenza Virus 2016-05-16 Completed Universit y of Vaccine [facility] IM 3+ 00:00:00 [facility] Influenza Virus 2016-05-16 Completed Universit y of Vaccine [facility] IM 3+ 00:00:00 [facility] Influenza Virus 2016-05-16 Completed Universit y of Vaccine Quad IM 3+ 00:00:00 [facility] Influenza Virus 2016-05-16 Completed Universit y of Vaccine Quad IM 3+ 00:00:00 [facility] Influenza Virus 2016-05-16 Completed Universit y of Vaccine [facility] IM 3+ 00:00:00 [facility] Influenza Virus 2016-05-16 Completed Universit y of Vaccine Quad IM 3+ 00:00:00 [facility] Influenza Virus 2016-05-16 Completed Universit y of Vaccine Quad IM 3+ 00:00:00 [facility] Influenza Virus 2016-05-16 Completed Universit y of Vaccine Quad IM 3+ 00:00:00 [facility] Influenza Virus 2016-05-16 Completed Universit y of Vaccine Quad IM 3+ 00:00:00 [facility] Influenza Virus 2016-05-16 Completed Universit y of Vaccine Quad IM 3+ 00:00:00 [facility] Influenza Virus 2016-05-16 Completed Universit y of Vaccine [facility] IM 3+ 00:00:00 [facility] Influenza Virus 2016-05-16 Completed Universit y of Vaccine [facility] IM 3+ 00:00:00 [facility] Influenza Virus 2016-05-16 Completed Universit y of Vaccine [facility] IM 3+ 00:00:00 [facility] Influenza Virus 2016-05-16 Completed Universit y of Vaccine [facility] IM 3+ 00:00:00 [facility] Influenza Virus 2016-05-16 Completed Universit y of Vaccine [facility] IM 3+ 00:00:00 [facility] Influenza Virus 2016-05-16 Completed Universit y of Vaccine Quad IM 3+ 00:00:00 [facility] Influenza Virus 2016-05-16 Completed Universit y of Vaccine Quad IM 3+ 00:00:00 [facility] Influenza Virus 2016-05-16 Completed Universit y of Vaccine [facility] IM 3+ 00:00:00 [facility] Influenza Virus 2016-05-16 Completed Universit y of Vaccine [facility] IM 3+ 00:00:00 [facility] Influenza Virus 2016-05-16 Completed Universit y of Vaccine [facility] IM 3+ 00:00:00 [facility] Influenza Virus 2016-05-16 Completed Universit y of Vaccine Quad IM 3+ 00:00:00 [facility] Influenza Virus 2016-05-16 Completed Universit y of Vaccine Quad IM 3+ 00:00:00 [facility] Influenza Virus 2016-05-16 Completed Universit y of Vaccine [facility] IM 3+ 00:00:00 [facility] Influenza Virus 2016-05-16 Completed Universit y of Vaccine [facility] IM 3+ 00:00:00 [facility] Influenza Virus 2016-05-16 Completed Universit y of Vaccine [facility] IM 3+ 00:00:00 [facility] Influenza Virus 2016-05-16 Completed Universit y of Vaccine [facility] IM 3+ 00:00:00 [facility] Influenza Virus 2016-05-16 Completed Universit y of Vaccine [facility] IM 3+ 00:00:00 [facility] Influenza Virus 2016-05-16 Completed Universit y of Vaccine Quad IM 3+ 00:00:00 [facility] Influenza Virus 2016-05-16 Completed Universit y of Vaccine [facility] IM 3+ 00:00:00 [facility] Influenza Virus 2016-05-16 Completed Universit y of Vaccine [facility] IM 3+ 00:00:00 [facility] Influenza Virus 2016-05-16 Completed Universit y of Vaccine Quad IM 3+ 00:00:00 [facility] Influenza Virus 2016-05-16 Completed Universit y of Vaccine [facility] IM 3+ 00:00:00 [facility] Influenza Virus 2016-05-16 Completed Universit y of Vaccine [facility] IM 3+ 00:00:00 [facility] Influenza Virus 2016-05-16 Completed Universit y of Vaccine Quad IM 3+ 00:00:00 [facility] Influenza Virus 2016-05-16 Completed Universit y of Vaccine [facility] IM 3+ 00:00:00 [facility] Influenza Virus 2016-05-16 Completed Universit y of Vaccine Quad IM 3+ 00:00:00 [facility] Influenza Virus 2016-05-16 Completed Universit y of Vaccine [facility] IM 3+ 00:00:00 [facility] Influenza Virus 2016-05-16 Completed Universit y of Vaccine Quad IM 3+ 00:00:00 [facility] Influenza Virus 2016-05-16 Completed Universit y of Vaccine [facility] IM 3+ 00:00:00 [facility] Influenza Virus 2016-05-16 Completed Universit y of Vaccine Quad IM 3+ 00:00:00 [facility] Influenza Virus 2016-05-16 Completed Universit y of Vaccine [facility] IM 3+ 00:00:00 [facility] Influenza Virus 2016-05-16 Completed Universit y of Vaccine Quad IM 3+ 00:00:00 [facility] Influenza Virus 2016-05-16 Completed Universit y of Vaccine Quad IM 3+ 00:00:00 [facility] Influenza Virus 2016-05-16 Completed Universit y of Vaccine Quad IM 3+ 00:00:00 [facility] Influenza Virus 2016-05-16 Completed Universit y of Vaccine [facility] IM 3+ 00:00:00 [facility] Influenza Virus 2016-05-16 Completed Universit y of Vaccine Quad IM 3+ 00:00:00 [facility] Influenza Virus 2016-05-16 Completed Universit y of Vaccine Quad IM 3+ 00:00:00 [facility] Influenza Virus 2016-05-16 Completed Universit y of Vaccine Quad IM 3+ 00:00:00 [facility] Influenza Virus 2016-05-16 Completed Universit y of Vaccine Quad IM 3+ 00:00:00 [facility] Influenza Virus 2016-05-16 Completed Universit y of Vaccine Quad IM 3+ 00:00:00 [facility] Influenza Virus 2016-05-16 Completed Universit y of Vaccine Quad IM 3+ 00:00:00 [facility] Influenza Virus 2016-05-16 Completed Universit y of Vaccine Quad IM 3+ 00:00:00 [facility] Influenza Virus 2016-05-16 Completed Universit y of Vaccine Quad IM 3+ 00:00:00 [facility] Influenza Virus 2016-05-16 Completed Universit y of Vaccine Quad IM 3+ 00:00:00 [facility] Influenza Virus 2016-05-16 Completed Universit y of Vaccine Quad IM 3+ 00:00:00 [facility] Influenza Virus 2016-05-16 Completed Universit y of Vaccine Quad IM 3+ 00:00:00 [facility] Influenza Virus 2016-05-16 Completed Universit y of Vaccine [facility] IM 3+ 00:00:00 [facility] Vital Signs Vital Name Observation Time Observation Value Comments Source Systolic blood 2022-04-10 115 mm[Hg] University of pressure 05:05:13 [facility] Diastolic blood 2022-04-10 93 mm[Hg] University o f pressure 05:05:13 [facility] Heart rate 2022-04-10 87 /min University 05:05:13 [facility] Respiratory rate 2022-04-10 15 /min University 05:05:13 [facility] Oxygen saturation 2022-04-10 100 /min University of in Arterial blood 05:05:13 [place] [facility] by Pulse oximetry Branch Body temperature 2022-04-10 36.61 Tasia [facility] of 01:35:00 [facility] Body height 2022-04-10 185.4 cm [facility] of 01:35:00 [facility] Body weight 2022-04-10 68.04 kg [facility] 01:35:00 [facility] BMI 2022-04-10 19.79 kg/m2 [facility] 01:35:00 [facility] Systolic blood 2022-04-08 86 mm[Hg] University of pressure 13:00:00 [facility] Diastolic blood 2022-04-08 75 mm[Hg] University o f pressure 13:00:00 [facility] Heart rate 2022-04-08 61 /min University of 13:00:00 [facility] Body temperature 2022-04-08 35.67 Tasia University 13:00:00 [facility] Respiratory rate 2022-04-08 17 /min University of 13:00:00 [facility] Oxygen saturation 2022-04-08 95 /min [facility] of in Arterial blood 13:00:00 [place] [facility]i mariusz by Pulse oximetry Branch Body weight 2022-04-06 72.984 kg University of 08:20:00 [facility] BMI 2022-04-06 21.23 kg/m2 University of 08:20:00 [facility] Body height 2022-04-02 185.4 cm University of 16:37:00 [facility] HEIGHT 2022-03-06 185.4 cm 12:05:00 WEIGHT 2022-03-06 65.772 kg 12:05:00 HEIGHT 2022-03-06 185.4 cm 12:05:00 WEIGHT 2022-03-06 65.772 kg 12:05:00 HEIGHT 2022-03-06 185.4 cm 12:05:00 WEIGHT 2022-03-06 65.772 kg 12:05:00 Systolic blood 2021-09-14 106 mm[Hg] University of pressure 03:17:00 [facility] Diastolic blood 2021-09-14 55 mm[Hg] University o f pressure 03:17:00 [facility] Heart rate 2021-09-14 86 /min University of 03:17:00 [facility] Body temperature 2021-09-14 36.89 Tasia University of 03:17:00 [facility] Respiratory rate 2021-09-14 18 /min University of 03:17:00 [facility] Oxygen saturation 2021-09-14 98 /min University of in Arterial blood 03:17:00 [facility] by Pulse oximetry Branch Systolic blood 2021-09-12 90 mm[Hg] University of pressure 22:20:00 [facility] Diastolic blood 2021-09-12 66 mm[Hg] University o f pressure 22:20:00 [facility] Heart rate 2021-09-12 97 /min University of 22:20:00 [facility] Body temperature 2021-09-12 36.61 Tasia University of 22:20:00 [facility] Respiratory rate 2021-09-12 16 /min University of 22:20:00 [facility] Oxygen saturation 2021-09-12 98 /min University of in Arterial blood 22:20:00 [facility] by Pulse oximetry Branch Body weight 2021-09-12 68.04 kg University of 20:25:00 [facility] BMI 2021-09-12 19.79 kg/m2 University of 20:25:00 [facility] Systolic blood 2021-09-12 103 mm[Hg] University of pressure 13:29:00 [facility] Diastolic blood 2021-09-12 67 mm[Hg] University o f pressure 13:29:00 [facility] Heart rate 2021-09-12 91 /min University of 13:29:00 [facility] Body temperature 2021-09-12 36.72 Tasia University of 13:29:00 [facility] Respiratory rate 2021-09-12 33 /min University of 13:29:00 [facility] Oxygen saturation 2021-09-12 98 /min University of in Arterial blood 13:29:00 [facility] by Pulse oximetry Branch Body weight 2021-09-12 68.04 kg University of 12:17:00 [facility] BMI 2021-09-12 19.79 kg/m2 University of 12:17:00 [facility] Systolic blood 2021-09-09 100 mm[Hg] University of pressure 04:59:00 [facility] Diastolic blood 2021-09-09 60 mm[Hg] University o f pressure 04:59:00 [facility] Heart rate 2021-09-09 85 /min [facility] 04:59:00 [facility] Body temperature 2021-09-09 36.5 Tasia [facility] 04:59:00 [facility] Respiratory rate 2021-09-09 16 /min [facility] 04:59:00 [facility] Body height 2021-09-09 185.4 cm [facility] 04:59:00 [facility] Body weight 2021-09-09 68.04 kg [facility] 04:59:00 [facility] BMI 2021-09-09 19.79 kg/m2 [facility] 04:59:00 [facility] Oxygen saturation 2021-09-09 98 /min [facility] in Arterial blood 04:59:00 [facility] by Pulse oximetry Branch Systolic blood 2021-09-08 129 mm[Hg] University of pressure 05:42:00 [facility] Diastolic blood 2021-09-08 69 mm[Hg] University o f pressure 05:42:00 [facility] Heart rate 2021-09-08 85 /min [facility] 05:42:00 [facility] Respiratory rate 2021-09-08 17 /min University 05:42:00 [facility] Oxygen saturation 2021-09-08 98 /min University of in Arterial blood 05:42:00 [facility] by Pulse oximetry Branch Body temperature 2021-09-08 37.44 Tasia University of 01:22:00 [facility] Body weight 2021-09-08 68 kg University of 01:22:00 [facility] BMI 2021-09-08 19.78 kg/m2 University of 01:22:00 [facility] Systolic blood 2021-09-06 123 mm[Hg] University of pressure 21:33:00 [facility] Diastolic blood 2021-09-06 65 mm[Hg] University o f pressure 21:33:00 [facility] Heart rate 2021-09-06 91 /min University of 21:33:00 [facility] Body temperature 2021-09-06 36.39 Tasia University of 21:33:00 [facility] Respiratory rate 2021-09-06 18 /min University of 21:33:00 [facility] Body weight 2021-09-06 68.04 kg University of 21:33:00 [facility] BMI 2021-09-06 19.79 kg/m2 University of 21:33:00 [facility] Oxygen saturation 2021-09-06 100 /min University of in Arterial blood 21:33:00 [place] [facility] by Pulse oximetry Branch Systolic blood 2021-09-05 99 mm[Hg] University of pressure 17:16:00 [facility] Diastolic blood 2021-09-05 62 mm[Hg] University o f pressure 17:16:00 [facility] Heart rate 2021-09-05 78 /min University of 17:16:00 [facility] Body temperature 2021-09-05 36.39 Tasia University of 17:16:00 [facility] Respiratory rate 2021-09-05 17 /min University of 17:16:00 [facility] Oxygen saturation 2021-09-05 95 /min University of in Arterial blood 17:16:00 [place] [facility] by Pulse oximetry Branch Body height 2021-08-31 185.4 cm University of 07:29:00 [facility] Body weight 2021-08-31 68.04 kg University of 07:29:00 [facility] BMI 2021-08-31 19.79 kg/m2 University of 07:29:00 [facility] Systolic blood 2021-09-03 111 mm[Hg] University of pressure 15:59:00 [facility] Branch Diastolic blood 2021-09-03 65 mm[Hg] University o f pressure 15:59:00 [facility] Heart rate 2021-09-03 75 /min University of 15:59:00 [facility] Body temperature 2021-09-03 35.72 Tasia University of 15:59:00 [facility] Respiratory rate 2021-09-03 18 /min University of 15:59:00 [facility] Oxygen saturation 2021-09-03 100 /min University of in Arterial blood 15:59:00 [place] [facility] by Pulse oximetry Branch Body height 2021-08-31 185.4 cm University of 07:29:00 [facility] Body weight 2021-08-31 68.04 kg University of 07:29:00 [facility] BMI 2021-08-31 19.79 kg/m2 University of 07:29:00 [facility] Systolic blood 2021-08-29 111 mm[Hg] University of pressure 23:12:00 [facility] Diastolic blood 2021-08-29 73 mm[Hg] University o f pressure 23:12:00 [facility] Heart rate 2021-08-29 95 /min University of 23:12:00 [facility] Body temperature 2021-08-29 37 Tasia University of 23:12:00 [facility] Respiratory rate 2021-08-29 18 /min University of 23:12:00 [facility] Body weight 2021-08-29 68.04 kg University of 23:12:00 [facility] BMI 2021-08-29 19.79 kg/m2 University of 23:12:00 [facility] Oxygen saturation 2021-08-29 99 /min [facility] in Arterial blood 23:12:00 [facility] by Pulse oximetry Branch Systolic blood 2021-08-05 92 mm[Hg] University of pressure 10:56:00 [facility] Diastolic blood 2021-08-05 75 mm[Hg] University o f pressure 10:56:00 [facility] Heart rate 2021-08-05 67 /min University of 10:56:00 [facility] Body temperature 2021-08-05 36.22 Tasia University of 10:56:00 [facility] Oxygen saturation 2021-08-05 93 /min [facility] in Arterial blood 10:56:00 [facility] by Pulse oximetry Branch Respiratory rate 2021-08-05 16 /min University of 06:24:00 [facility] Body height 2021-07-30 185.4 cm University of 09:49:00 [facility] Body weight 2021-07-30 65.772 kg University of 09:49:00 [facility] BMI 2021-07-30 19.13 kg/m2 University of 09:49:00 [facility] Systolic blood 2021-07-26 107 mm[Hg] University of pressure 17:32:00 [facility] Diastolic blood 2021-07-26 69 mm[Hg] University o f pressure 17:32:00 [facility] Heart rate 2021-07-26 70 /min University of 17:32:00 [facility] Body temperature 2021-07-26 36.39 Tasia University of 17:32:00 [facility] Respiratory rate 2021-07-26 16 /min University of 17:32:00 [facility] Oxygen saturation 2021-07-26 96 /min University of in Arterial blood 17:32:00 [facility] by Pulse oximetry Branch Body height 2021-07-23 185.4 cm University of 08:40:00 [facility] Body weight 2021-07-23 84.5 kg University of 08:40:00 [facility] BMI 2021-07-23 24.58 kg/m2 University of 08:40:00 [facility] Systolic blood 2021-06-04 95 mm[Hg] University of pressure 16:20:00 [facility] Diastolic blood 2021-06-04 60 mm[Hg] University o f pressure 16:20:00 [facility] Heart rate 2021-06-04 61 /min University of 16:20:00 [facility] Body temperature 2021-06-04 36.17 Tasia University of 16:20:00 [facility] Respiratory rate 2021-06-04 18 /min University of 16:20:00 [facility] Oxygen saturation 2021-06-04 100 /min University of in Arterial blood 16:20:00 [facility] by Pulse oximetry Branch Body weight 2021-06-01 65.772 kg University of 19:00:00 [facility] BMI 2021-06-01 19.13 kg/m2 University of 19:00:00 [facility] Body height 2021-05-31 185.4 cm University of 22:12:00 [facility] Systolic blood 2021-05-21 101 mm[Hg] University of pressure 20:21:00 [facility] Branch Diastolic blood 2021-05-21 68 mm[Hg] University o f pressure 20:21:00 [facility] Heart rate 2021-05-21 74 /min University of 20:21:00 [facility] Body temperature 2021-05-21 36.56 Tasia University of 20:21:00 [facility] Respiratory rate 2021-05-21 18 /min University of 20:21:00 [facility] Oxygen saturation 2021-05-21 99 /min University of in Arterial blood 20:21:00 [facility] mariusz by Pulse oximetry Branch Body height 2021-05-21 185.4 cm University of 00:15:00 [facility] Body weight 2021-05-21 65.772 kg University of 00:15:00 [facility] BMI 2021-05-21 19.13 kg/m2 [facility] of 00:15:00 [facility] Systolic blood 2021-05-09 101 mm[Hg] University of pressure 16:32:00 [facility] Diastolic blood 2021-05-09 70 mm[Hg] University o f pressure 16:32:00 [facility] Heart rate 2021-05-09 69 /min University of 16:32:00 [facility] Body temperature 2021-05-09 36.72 Tasia University of 16:32:00 [facility] Respiratory rate 2021-05-09 16 /min University of 16:32:00 [facility] Oxygen saturation 2021-05-09 99 /min [place] [facility] in Arterial blood 16:32:00 [facility] by Pulse oximetry Branch Body height 2021-05-08 185.4 cm University of 05:48:00 [facility] Body weight 2021-05-08 80.196 kg University of 05:48:00 [facility] BMI 2021-05-08 23.33 kg/m2 University of 05:48:00 [facility] Heart rate 2020-09-27 89 /min University of 04:25:00 [facility] Respiratory rate 2020-09-27 20 /min University of 04:25:00 [facility] Oxygen saturation 2020-09-27 99 /min [place] [facility] in Arterial blood 04:25:00 [facility] by Pulse oximetry Branch Systolic blood 2020-09-27 103 mm[Hg] [facility] pressure 04:02:00 [facility] Diastolic blood 2020-09-27 78 mm[Hg] [facility] o f pressure 04:02:00 [facility] Body temperature 2020-09-27 36.72 Tasia University of 04:00:00 [facility] Body weight 2020-09-26 79.379 kg University of 22:35:00 [facility] BMI 2020-09-26 23.09 kg/m2 University of 22:35:00 [facility] Systolic blood 2020-08-24 105 mm[Hg] [facility] pressure 17:24:00 [facility] Diastolic blood 2020-08-24 64 mm[Hg] [facility] o f pressure 17:24:00 [facility] Heart rate 2020-08-24 83 /min University of 17:24:00 [facility] Body temperature 2020-08-24 36.56 Tasia University of 17:24:00 [facility] Respiratory rate 2020-08-24 16 /min University of 17:24:00 [facility] Oxygen saturation 2020-08-24 98 /min University of in Arterial blood 17:24:00 [facility] mariusz by Pulse oximetry Branch Body height 2020-08-23 185.4 cm University of 03:19:00 [facility] Body weight 2020-08-23 79.379 kg University of 03:19:00 [facility] BMI 2020-08-23 23.09 kg/m2 University of 03:19:00 [facility] Systolic blood 2020-07-10 126 mm[Hg] [facility] pressure 01:32:00 [facility] Diastolic blood 2020-07-10 67 mm[Hg] University o f pressure 01:32:00 [facility] Heart rate 2020-07-10 92 /min University of :32:00 [facility] Body temperature 2020-07-10 37.17 Tasia University of :32:00 [facility] Respiratory rate 2020-07-10 16 /min University of :32:00 [facility] Oxygen saturation 2020-07-10 100 /min University of in Arterial blood 01:32:00 [facility] by Pulse oximetry Branch Body height 2020-07-09 154.9 cm University of :23:00 [facility] Body weight 2020-07-09 68.04 kg University of 22:23:00 [facility] BMI 2020-07-09 28.34 kg/m2 University of 22:23:00 [facility] Systolic blood 2020-06-05 106 mm[Hg] [facility] of pressure 15:00:00 [facility] Diastolic blood 2020-06-05 72 mm[Hg] University o f pressure 15:00:00 [facility] Heart rate 2020-06-05 84 /min University of 15:00:00 [facility] Respiratory rate 2020-06-05 18 /min University of 15:00:00 [facility] Oxygen saturation 2020-06-05 100 /min University of in Arterial blood 15:00:00 [facility] mariusz by Pulse oximetry Branch Body temperature 2020-06-05 36.61 Tasia University of 14:54:52 [facility] Body weight 2020-06-05 65.772 kg University of 11:48:00 [facility] BMI 2020-06-05 19.13 kg/m2 University of 11:48:00 [facility] Systolic blood 2020-06-04 130 mm[Hg] [facility] of pressure 18:30:00 [facility] Diastolic blood 2020-06-04 84 mm[Hg] University o f pressure 18:30:00 [facility] Heart rate 2020-06-04 72 /min University of 18:30:00 [facility] Body temperature 2020-06-04 36.72 Tasia University of 18:30:00 [facility] Respiratory rate 2020-06-04 16 /min University of 18:30:00 [facility] Oxygen saturation 2020-06-04 98 /min [facility] of in Arterial blood 18:30:00 [facility] by Pulse oximetry Branch Systolic blood 2020-05-31 90 mm[Hg] [facility] of pressure 19:59:00 [facility] Diastolic blood 2020-05-31 59 mm[Hg] University o f pressure 19:59:00 [facility] Heart rate 2020-05-31 88 /min University of 19:59:00 [facility] Body temperature 2020-05-31 36.78 Tasia University of 19:59:00 [facility] Respiratory rate 2020-05-31 16 /min [facility] of 19:59:00 [facility] Oxygen saturation 2020-05-31 98 /min [facility] of in Arterial blood 19:59:00 [facility] by Pulse oximetry Branch Body height 2020-05-30 185.4 cm University of 18:29:00 [facility] Body weight 2020-05-30 69.5 kg weighed in bed University of 18:29:00 [facility] BMI 2020-05-30 20.21 kg/m2 University of 18:29:00 [facility] Systolic blood 2020-05-22 100 mm[Hg] [facility] of pressure 04:38:00 [facility] Diastolic blood 2020-05-22 71 mm[Hg] [facility] o f pressure 04:38:00 [facility] Heart rate 2020-05-22 90 /min [facility] of 04:38:00 [facility] Respiratory rate 2020-05-22 18 /min [facility] of 04:38:00 [facility] Oxygen saturation 2020-05-22 97 /min [facility] of in Arterial blood 04:38:00 [facility] by Pulse oximetry [place] Body temperature 2020-05-22 36.83 Tasia University of 02:02:11 [facility] Body height 2020-05-22 185.4 cm University of 01:59:00 [facility] Body weight 2020-05-22 65.772 kg University of 01:59:00 [facility] BMI 2020-05-22 19.13 kg/m2 University of 01:59:00 [facility] Systolic blood 2020-05-20 95 mm[Hg] [facility] of pressure 18:33:34 [facility] Diastolic blood 2020-05-20 62 mm[Hg] [facility] o f pressure 18:33:34 [facility] Heart rate 2020-05-20 86 /min University of 18:33:34 [facility] Respiratory rate 2020-05-20 20 /min [facility] of 18:33:34 [facility] Oxygen saturation 2020-05-20 98 /min [facility] of in Arterial blood 18:33:34 [facility] by Pulse oximetry [place] Body temperature 2020-05-20 37 Tasia University of 12:02:00 [facility] Body weight 2020-05-20 65.8 kg University of 12:02:00 [facility] BMI 2020-05-20 19.14 kg/m2 University of 12:02:00 [facility] Systolic blood 2020-05-20 101 mm[Hg] [facility] of pressure 10:58:00 [facility] Diastolic blood 2020-05-20 56 mm[Hg] [facility] o f pressure 10:58:00 [facility] Heart rate 2020-05-20 79 /min [facility] of 10:58:00 [facility] Body temperature 2020-05-20 37 Tasia University of 10:58:00 [facility] Respiratory rate 2020-05-20 16 /min [facility] of 10:58:00 [facility] Oxygen saturation 2020-05-20 99 /min [facility] of in Arterial blood 10:58:00 [facility] by Pulse oximetry [place] Body height 2020-05-20 185.4 cm University of 02:36:00 [facility] Body weight 2020-05-20 65.772 kg University of 02:36:00 [facility] BMI 2020-05-20 19.13 kg/m2 University of 02:36:00 [facility] Systolic blood 2020-05-12 93 mm[Hg] [facility] pressure 17:02:00 [facility] Diastolic blood 2020-05-12 61 mm[Hg] [facility] o f pressure 17:02:00 [facility] Body temperature 2020-05-12 37.06 Tasia [facility] of 17:02:00 [facility] Heart rate 2020-05-12 74 /min [facility] of 09:00:00 [facility] Respiratory rate 2020-05-12 18 /min [facility] of 09:00:00 [facility] Oxygen saturation 2020-05-12 95 /min [facility] of in Arterial blood 09:00:00 [facility] mariusz by Pulse oximetry Branch Body height 2020-05-05 185.4 cm University of 09:05:00 [facility] Body weight 2020-05-05 65.772 kg University of 09:05:00 [facility] BMI 2020-05-05 19.13 kg/m2 [facility] of 09:05:00 [facility] Systolic blood 2020-05-03 107 mm[Hg] [facility] pressure 04:30:00 [facility] Diastolic blood 2020-05-03 62 mm[Hg] [facility] o f pressure 04:30:00 [facility] Heart rate 2020-05-03 105 /min [facility] of 04:30:00 [facility] Body temperature 2020-05-03 37.22 Tasia [facility] of 04:30:00 [facility] Respiratory rate 2020-05-03 14 /min [facility] of 04:30:00 [facility] Body height 2020-05-03 185.4 cm [facility] of 04:30:00 [facility] Body weight 2020-05-03 65.772 kg University of 04:30:00 [facility] BMI 2020-05-03 19.13 kg/m2 [facility] of 04:30:00 [facility] Systolic blood 2020-05-02 105 mm[Hg] [facility] of pressure 12:46:00 [facility] Diastolic blood 2020-05-02 57 mm[Hg] [facility] o f pressure 12:46:00 [facility] Heart rate 2020-05-02 79 /min [facility] of 12:46:00 [facility] Body temperature 2020-05-02 36.28 Tasia University of 12:46:00 [facility] Respiratory rate 2020-05-02 16 /min [facility] of 12:46:00 [facility] Oxygen saturation 2020-05-02 98 /min [facility] in Arterial blood 12:46:00 [facility] Pulse oxim[facility] Body height 2020-04-16 185.4 cm University of 20:11:00 [facility] Body weight 2020-04-16 79.379 kg University of 20:11:00 [facility] BMI 2020-04-16 23.09 kg/m2 University of 20:11:00 [facility] Respiratory rate 2020-04-06 12 /min [facility] of 16:20:00 [facility] Systolic blood 2020-03-28 125 mm[Hg] [facility] pressure 16:00:00 [facility] Diastolic blood 2020-03-28 87 mm[Hg] [facility] o f pressure 16:00:00 [facility] Heart rate 2020-03-28 74 /min [facility] of 16:00:00 [facility] Body temperature 2020-03-28 36.44 Tasia [facility] of 16:00:00 [facility] Respiratory rate 2020-03-28 18 /min [facility] 16:00:00 [facility] Oxygen saturation 2020-03-28 100 /min [facility] in Arterial blood 16:00:00 [place] [facility] Pulse oxim[facility] Body height 2020-03-26 185.4 cm [facility] of 03:49:00 [facility] Body weight 2020-03-26 74.844 kg University of 03:49:00 [facility] BMI 2020-03-26 21.77 kg/m2 University of 03:49:00 [facility] Systolic blood 2020-03-05 107 mm[Hg] [facility] pressure 16:00:00 [facility] Diastolic blood 2020-03-05 67 mm[Hg] [facility] pressure 16:00:00 [facility] Heart rate 2020-03-05 56 /min [facility] of 16:00:00 [facility] Body temperature 2020-03-05 36.5 Tasia [facility] of 16:00:00 [facility] Respiratory rate 2020-03-05 18 /min [facility] 16:00:00 [facility] Oxygen saturation 2020-03-05 100 /min [facility] in Arterial blood 16:00:00 [place] [facility] Pulse oxim[facility] Body height 2020-03-03 185.4 cm [facility] of 05:49:00 [facility] Body weight 2020-03-03 71.668 kg University of 05:49:00 [facility] BMI 2020-03-03 20.85 kg/m2 University of 05:49:00 [facility] Systolic blood 2020-02-27 100 mm[Hg] [facility] pressure 21:12:00 [facility] Diastolic blood 2020-02-27 74 mm[Hg] [facility] o f pressure 21:12:00 [facility] Heart rate 2020-02-27 90 /min [facility] of 21:12:00 [facility] Body temperature 2020-02-27 35.78 Tasia [facility] of 21:12:00 [facility] Respiratory rate 2020-02-27 19 /min [facility] of 21:12:00 [facility] Oxygen saturation 2020-02-27 99 /min [facility] in Arterial blood 21:12:00 [place] [facility] by Pulse oximetry [place] Body weight 2020-02-26 71.215 kg University of 23:05:00 [facility] BMI 2020-02-26 20.71 kg/m2 University of 23:05:00 [facility] Systolic blood 2020-02-26 132 mm[Hg] [facility] pressure 07:43:00 [facility] Diastolic blood 2020-02-26 71 mm[Hg] [facility] o f pressure 07:43:00 [facility] Heart rate 2020-02-26 82 /min [facility] of 07:43:00 [facility] Respiratory rate 2020-02-26 18 /min [facility] of 07:43:00 [facility] Oxygen saturation 2020-02-26 100 /min [facility] in Arterial blood 07:43:00 [facility] mariusz by Pulse oximetry [place] Body temperature 2020-02-26 36.94 Tasia University of 04:57:00 [facility] Body height 2020-02-26 185.4 cm University of 02:30:00 [facility] Body weight 2020-02-26 68.04 kg University of 02:30:00 [facility] BMI 2020-02-26 19.79 kg/m2 University of 02:30:00 [facility] Systolic blood 2020-02-05 100 mm[Hg] [facility] pressure 16:00:00 [facility] Diastolic blood 2020-02-05 61 mm[Hg] [facility] o f pressure 16:00:00 [facility] Heart rate 2020-02-05 60 /min [facility] of 16:00:00 [facility] Body temperature 2020-02-05 36.67 Tasia [facility] of 16:00:00 [facility] Respiratory rate 2020-02-05 17 /min [facility] 16:00:00 [facility] Oxygen saturation 2020-02-05 98 /min [facility] in Arterial blood 16:00:00 [place] [facility] Pulse oxim[facility] Body height 2020-01-28 185.4 cm University of 23:13:00 [facility] Body weight 2020-01-28 68.04 kg University of 23:13:00 [facility] BMI 2020-01-28 19.79 kg/m2 University of 23:13:00 [facility] Systolic blood 2020-02-05 100 mm[Hg] [facility] pressure 16:00:00 [facility] Diastolic blood 2020-02-05 61 mm[Hg] [facility] o [facility] pressure 16:00:00 [facility] Heart rate 2020-02-05 60 /min [facility] of 16:00:00 [facility] Body temperature 2020-02-05 36.67 Tasia [facility] of 16:00:00 [facility] Respiratory rate 2020-02-05 17 /min [facility] of 16:00:00 [facility] Oxygen saturation 2020-02-05 98 /min [facility] in Arterial blood 16:00:00 [facility] mariusz by Pulse oximetry Branch Body height 2020-01-28 185.4 cm University of 23:13:00 [facility] Body weight 2020-01-28 68.04 kg University of 23:13:00 [facility] BMI 2020-01-28 19.79 kg/m2 [facility] of 23:13:00 [facility] Systolic blood 2020-01-27 114 mm[Hg] [facility] pressure 00:32:00 [facility] Diastolic blood 2020-01-27 66 mm[Hg] [facility] pressure 00:32:00 [facility] Heart rate 2020-01-27 73 /min [facility] of 00:32:00 [facility] Body temperature 2020-01-27 36.67 Tasia [facility] of 00:32:00 [facility] Respiratory rate 2020-01-27 18 /min [facility] of 00:32:00 [facility] Oxygen saturation 2020-01-27 97 /min [facility] in Arterial blood 00:32:00 [place] [facility] Pulse oxim[facility] Body height 2020-01-24 185.4 cm University of 23:55:00 [facility] Body weight 2020-01-24 68.04 kg University of 23:55:00 [facility] BMI 2020-01-24 19.79 kg/m2 [facility] of 23:55:00 [facility] Systolic blood 2020-01-27 114 mm[Hg] [facility] pressure 00:32:00 [facility] Diastolic blood 2020-01-27 66 mm[Hg] [facility] o [facility] pressure 00:32:00 [facility] Heart rate 2020-01-27 73 /min [facility] of 00:32:00 [facility] Body temperature 2020-01-27 36.67 Tasia [facility] 00:32:00 [facility] Respiratory rate 2020-01-27 18 /min [facility] of 00:32:00 [facility] Oxygen saturation 2020-01-27 97 /min [facility] in Arterial blood 00:32:00 [facility] mariusz by Pulse oximetry Branch Body height 2020-01-24 185.4 cm University of 23:55:00 [facility] Body weight 2020-01-24 68.04 kg University of 23:55:00 [facility] BMI 2020-01-24 19.79 kg/m2 University of 23:55:00 [facility] Body temperature 2019-12-13 36.72 Tasia [place] [facility] 02:56:16 [facility] Systolic blood 2019-12-13 114 mm[Hg] [facility] pressure 01:57:00 [facility] Diastolic blood 2019-12-13 77 mm[Hg] University o f pressure :57:00 [facility] Heart rate 2019-12-13 75 /min [facility] :57:00 [facility] Respiratory rate 2019-12-13 20 /min University of :57:00 [facility] Body height 2019-12-13 185.4 cm [facility] :57:00 [facility] Body weight 2019-12-13 68.04 kg [facility] :57:00 [facility] BMI 2019-12-13 19.79 kg/m2 University of :57:00 [facility] Oxygen saturation 2019-12-13 97 /min [facility] in Arterial blood 01:57:00 [facility] by Pulse oximetry Branch Body temperature 2019-12-13 36.72 Tasia University of 02:56:16 [facility] Systolic blood 2019-12-13 114 mm[Hg] [facility] pressure 01:57:00 [facility] Diastolic blood 2019-12-13 77 mm[Hg] [facility] o f pressure 01:57:00 [facility] Heart rate 2019-12-13 75 /min University of :57:00 [facility] Respiratory rate 2019-12-13 20 /min University of :57:00 [facility] Body height 2019-12-13 185.4 cm [facility] :57:00 [facility] Body weight 2019-12-13 68.04 kg University of 01:57:00 [facility] BMI 2019-12-13 19.79 kg/m2 [facility] 01:57:00 [facility] Oxygen saturation 2019-12-13 97 /min [facility] in Arterial blood 01:57:00 [facility] by Pulse oximetry [place] Systolic blood 2022-03-13 94 mm[Hg] [facility] pressure 15:33:00 Diastolic blood 2022-03-13 62 mm[Hg] [facility] h pressure 15:33:00 Heart rate 2022-03-13 109 /min [facility] 15:33:00 Body temperature 2022-03-13 36.67 Tasia [facility] th 15:33:00 Respiratory rate 2022-03-13 20 /min [facility] 15:33:00 Body height 2022-03-13 185.4 cm [facility] 15:33:00 Body weight 2022-03-13 66.679 kg [facility] 15:33:00 BMI 2022-03-13 19.39 kg/m2 [facility] 15:33:00 Oxygen saturation 2022-03-13 100 /min [facility] 15:33:00 by Pulse oximetry Systolic blood 2022-03-09 107 mm[Hg] [facility] pressure 11:00:00 [facility] Diastolic blood 2022-03-09 66 mm[Hg] [facility] pressure 11:00:00 [facility] Heart rate 2022-03-09 58 /min [facility] 11:00:00 [facility] Body temperature 2022-03-[address] [facility] 11:00:00 [facility] Respiratory rate 2022-03-09 16 /min [facility] 11:00:00 [facility] Oxygen saturation 2022-03-09 100 /min [facility] in Arterial blood 11:00:00 [facility] nter by Pulse oximetry Body height 2022-03-[address] [facility] 12:05:00 [facility] Body weight 2022-03-[address] [facility] 12:05:00 [facility] BMI 2022-03-06 19.13 kg/m2 [facility] 12:05:00 [facility] Procedures Procedure Date / Time Performing Clinician Source Performed COMP. METABOLIC PANEL 2022-04-10 03:54:00 [place] [facility] [place] [id number] CBC WITH DIFF 2022-04-10 03:49:00 Alvarez Austin [facility] LIPASE 2022-04-10 03:07:00 Alvarez Austin [facility] XR CHEST 2 VW 2022-04-10 02:59:18 Alvarez Austin [facility] COVID-19 (ID NOW RAPID 2022-04-10 02:43:00 Alvarez Austin [facility] TESTING) Medical Branch PHOSPHORUS 2022-04-08 10:26:00 Kurt [facility] MAGNESIUM 2022-04-08 10:[facility] (NA, 2022-04-08 10:26:00 Shelia Lemus [facility] K, CL, CO2, GLUCOSE, BUN, Medica l Branch CREATININE, CA) CBC WITH DIFF 2022-04-08 10:26:00 Kurt [facility] PHOSPHORUS 2022-04-07 09:45[facility]-07 09:45[facility] (NA, 2022-04-07 09:45:00 AlbDon jones [facility] K, CL, CO2, GLUCOSE, BUN, Medica l Branch CREATININE, CA) LACTIC ACID WHOLE BLOOD 2022-04-06 09:05:00 Rolf Lemus [facility] MAGNESIUM 2022-04-06 09:04:00 Kurt [facility] BASIC METABOLIC PANEL (NA, 2022-04-06 09:04:00 Rolf Lemus [facility] K, CL, CO2, GLUCOSE, BUN, Medica l Branch CREATININE, CA) CBC WITH DIFF 2022-04-06 09:04:00 Kurt [facility] BASIC METABOLIC PANEL (NA, 2022-04-05 08:12:00 Agatha Noonan [facility] K, CL, CO2, GLUCOSE, BUN, Medica l Branch CREATININE, CA) ACUTE CARE VENOUS BLOOD 2022-04-05 08:12:00 Octavio Macario [facility] CBC WITH DIFF 2022-04-05 08:12:00 Agatha Noonan [facility] BASIC METABOLIC PANEL (NA, 2022-04-04 09:03:00 Rolf Lemus [facility] K, CL, CO2, GLUCOSE, BUN, Medica l Branch CREATININE, CA) US RETROPERITONEAL LIMITED 2022-04-03 23:10:49 Octavio Macario [facility] ACUTE CARE VENOUS BLOOD 2022-04-03 18:33:00 Octavio Macario [facility] OSMOLALITY URINE 2022-04-03 17:59:00 Amirah [facility] BASIC METABOLIC PANEL (NA, 2022-04-03 17:59:00 Octavio Macario [facility] K, CL, CO2, GLUCOSE, BUN, Medica l Branch CREATININE, CA) CREATININE, URINE RANDOM 2022-04-03 17:59:00 Octavio Macario [facility] POTASSIUM, URINE RANDOM 2022-04-03 17:59:00 Amirah Octavio [facility] SODIUM, URINE RANDOM 2022-04-03 17:59:00 Octavio Macario [facility] MAGNESIUM 2022-04-03 09:29:00 Octavio Macario [facility] OSMOLALITY, SERUM OR 2022-04-03 09:29:00 Octavio Macario [facility] PLASMA [facility] BASIC METABOLIC PANEL (NA, 2022-04-03 09:29:00 Juventino [facility] K, CL, CO2, GLUCOSE, BUN, Medica l Branch CREATININE, CA) CBC WITH DIFF 2022-04-03 09:29:00 Juventino Thomas [facility] CLOSTRIDIUM DIFFICILE 2022-04-03 03:44:00 Juventino [facility] LACTIC ACID WHOLE BLOOD 2022-04-03 03:38:00 [facility] 2022-04-03 00:07:[address] [facility] URINE CULTURE 2022-04-02 22:39:[address] [facility] ABDOMEN PELVIS WO 2022-04-02 21:07:00 [facility] LIPASE 2022-04-02 20:00:00 Aguila [facility] TROPONIN I 2022-04-02 20:00:00 Aguila [facility] HEPATIC FUNCTION PANEL 2022-04-02 20:00:00 Aguila [facility] ([id number]) (ALB,T.PRO,BILI Medical Branch T,BU/BC,ALT,AST,ALK PHOS) BASIC METABOLIC PANEL (NA, 2022-04-02 20:00:00 Rekha Sheehan [facility] K, CL, CO2, GLUCOSE, BUN, Medica l Branch CREATININE, CA) URINALYSIS 2022-04-02 20:00:00 Aguila [facility] CBC WITH DIFF 2022-04-02 18:20:00 [facility] COVID-19 (ID NOW RAPID 2022-04-02 18:20:00 [facility] LAB ONLY COVID 2022-04-02 18:20:00 Aguila [facility] XR CHEST 2 VW 2022-04-02 17:29:13 [facility] HB ECG ROUTINE & RHYTHM 2022-04-02 16:32:43 Rekha Sheehan [facility] Branch CONSENT/REFUSAL FOR 2022-04-02 16:29:46 Doctor Unassigned, [facility] DIAGNOSIS AND TREATMENT [place] [facility] BASIC METABOLIC PANEL (7) 2022-03-07 05:51:00 Romie Kuo [facility] HEPATIC FUNCTION PANEL 2022-03-07 05:51:[address] [facility] CBC W/PLT COUNT & AUTO 2022-03-07 05:51:00 Romie Kuo [facility] CBC W/PLT COUNT & AUTO 2022-03-07 05:51:00 [facility] COMPLETE 2022-03-06 18:23:[address] [facility] SARS-COV2/RT-PCR ([facility] & 2022-03-06 17:36:00 Shiela [facility] REF LABS) Center TSH/FREE T4 IF INDICATED 2022-03-06 14:18:00 Aryan Tello [facility] T4, FREE 2022-03-06 14:18:00 Aryan Tello [facility] ED ECG INTERPRETATION 2022-03-06 13:48:12 Aryan Tello [facility] XR CHEST 1 VIEW PORTABLE / 2022-03-06 13:42:00 Aryan Tello [facility] BEDSIDE [facility] B-TYPE NATRIURETIC FACTOR 2022-03-06 13:23:00 Aryan Tello [facility] (BNP) [facility] CBC W/PLT COUNT & AUTO 2022-03-06 13:23:00 Aryan Tello [facility] DIFFERENTIAL [facility] COMPREHENSIVE METABOLIC 2022-03-06 13:23:[address] [facility] PANEL [facility] HIGH SENSITIVITY TROPONIN 2022-03-06 13:23:00 Aryan Tello [facility] MAGNESIUM 2022-03-06 13:23:00 Aryan Tello [facility] PHOSPHORUS 2022-03-06 13:23:00 [facility] LACT[facility]ID, VENOUS 2022-03-06 13:23:00 Aryan Tello [facility] CREATINE KINASE (CK) 2022-03-06 13:23:00 [facility] CBC W/PLT COUNT & AUTO 2022-03-06 13:23:00 Aryan Tello [facility] Medical DIFFERENTIAL [facility] ECG 12-LEAD 2022-03-06 12:12:56 Unknown, Hl7 Doctor [facility] ECG 12-LEAD 2022-03-06 12:12:56 Unknown, Hl7 Doctor [facility] ECG 12-LEAD 2022-03-06 12:12:56 Unknown, Hl7 Doctor [facility] EKG-SCANNED 2022-03-06 00:00:00 Provider, Jacqui [facility] CBC (WITHOUT DIFFERENTIAL) 2022-02-20 05:10:00 Rufino Lazaro [facility] BASIC METABOLIC PANEL 2022-02-20 05:10:00 Rufino Lazaro [facility] MAGNESIUM 2022-02-20 05:10:00 Rufino Lazaro PHOSPHORUS 2022-02-20 05:10:00 Rufino Lazaro INFUSION PUMP 2022-02-19 19:03:50 Rufino Lazaro COMPREHENSIVE METABOLIC 2022-02-19 06:35:00 Fannie Blake [facility] PANEL CBC/DIFF 2022-02-19 06:35:00 Fannie Blake alth PHOSPHORUS 2022-02-19 06:35:00 Fannie Blake alth CBC 2022-02-19 06:35:00 Fannie Blake alth URINALYSIS W/REFLEX TO 2022-02-19 00:34:00 Fannie Blake [facility] URINE CULTURE URINALYSIS 2022-02-19 00:34:00 Chadd Palacios URINE CULTURE COLLECTION 2022-02-19 00:34:00 Chdad Palacios [facility] KIT SARS-COV-2, FLU A/B, RSV 2022-02-18 19:00:00 Chadd Palacios [facility] CORONAVIRUS, COVID-19, OLENA 2022-02-18 19:00:00 Chadd Palacios [facility] XRAY CHEST 1 VIEW 2022-02-18 15:23:00 Roz Scales [facility] CONSULT CLINICAL CASE 2022-02-18 14:50:50 Roz Scales I [facility] MANAGEMENT (RN/SW) CBC/DIFF 2022-02-18 14:16:00 AlbabSusana [facility]ne [facility] BASIC METABOLIC PANEL 2022-02-18 14:16:00 Albab, Susana [facility] MAGNESIUM 2022-02-18 14:16:00 [facility] PHOSPHORUS 2022-02-18 14:16:00 Albab, [facility]alt h CREATINE KINASE (CK) 2022-02-18 14:16:00 [facility] 2022-02-18 14:16:00 [facility]ab[facility] BASIC METABOLIC PANEL 2022-02-11 03:34:00 Rosas Islasashia [facility] MAGNESIUM 2022-02-11 03:34:00 JamilahfredericTeresa [facility] th PHOSPHORUS 2022-02-11 03:34:00 Jamilahfrederic [facility] CBC (WITHOUT DIFFERENTIAL) 2022-02-11 03:34:00 [facility] CBC/DIFF 2022-02-10 03:39:00 Daily [facility] BAS[facility]OLIC PANEL 2022-02-10 03:39:00 [facility] 2022-02-10 03:39:00 [facility] THYROID STIMULATING 2022-02-10 03:39:00 [facility] HORMONE (TSH) FREE T4 2022-02-10 03:39:00 [facility] CBC/DIFF 2022-02-09 04:38:00 Daily [facility] BASIC METABOLIC PANEL 2022-02-09 04:38:00 [facility] CBC 2022-02-09 04:38:00 [facility] CORTISOL, TOTAL 2022-02-08 11:37:00 Jian Schmitt ealt GLUCOSE POC 2022-02-08 08:07:00 Daily [facility] CBC (WITHOUT DIFFERENTIAL) 2022-02-08 04:00:00 Jian Schmitt [facility] COMPREHENSIVE METABOLIC 2022-02-08 04:00:00 Jian Schmitt [facility] PANEL PHOSPHORUS 2022-02-08 04:00:00 [facility] MAGNESIUM 2022-02-08 04:00:00 [facility] PT/INR 2022-02-08 04:00:00 Jian Schmitt [facility] URINALYSIS W/REFLEX TO 2022-02-07 18:06:00 Areli Arciniega [facility] URINE CULTURE URINALYSIS 2022-02-07 18:06:00 Areli Arciniega alth URINE CULTURE COLLECTION 2022-02-07 18:06:00 Areli Arciniega [facility] KIT ELECTROLYTES, URINE 2022-02-07 18:06:00 Jyoti Carrillo [facility] OSMOLALITY, URINE 2022-02-07 18:06:00 Jyoti Carrillo [facility] SARS-COV-2, FLU A/B, RSV 2022-02-07 18:05:00 Jyoti Carrillo [facility] CORONAVIRUS, COVID-19, OLENA 2022-02-07 18:05:00 Jyoti Carrillo [facility] NUTRITION CONSULT 2022-02-07 17:43:36 Jian Schmitt [facility] BASIC METABOLIC PANEL 2022-02-07 17:18:00 Jyoti Carrillo [facility] LACTIC ACID 2022-02-07 14:04:00 Areli Arciniega alth CBC/DIFF 2022-02-07 14:03:00 Areli Arciniega alth BASIC METABOLIC PANEL 2022-02-07 14:03:00 Areli Arciniega [facility] LIVER PROFILE 2022-02-07 14:03:00 Areli Arciniega alth LIPASE 2022-02-07 14:03:00 Areli Arciniega alth MAGNESIUM 2022-02-07 14:03:00 Areli Arciniega alth PHOSPHORUS 2022-02-07 14:03:00 Areli Arciniega alth TROPONIN I 2022-02-07 14:03:00 Suze Allynediger Chiara Douglas alth CBC 2022-02-07 14:03:00 SuzeAreli Chiara Lynne Misael alth 12 LEAD EKG 2022-01-21 15:46:10 YusufOri [facility] CBC/DIFF 2022-01-21 04:11:00 LindseyNoeh Esther [facility] MAGNESIUM 2022-01-21 04:11:00 LindseyNoeh P [facility] PHOSPHORUS 2022-01-21 04:11:00 Lindsey, Tien P [facility] BASIC METABOLIC PANEL 2022-01-21 04:11:00 Ori Goldberg [facility] CBC 2022-01-21 04:11:00 LindseyNoeh P [facility] CBC/DIFF 2022-01-20 04:37:00 LindseyNoeh P [facility] MAGNESIUM 2022-01-20 04:37:00 LindseyNoeh P [facility] PHOSPHORUS 2022-01-20 04:37:00 Lindsey Tien P [facility] BASIC METABOLIC PANEL 2022-01-20 04:37:00 LindseyTien P [facility] CBC 2022-01-20 04:37:00 LindseyTien P [facility] MAGNESIUM 2022-01-19 18:09:00 Lindsey, Tien P [facility] PHOSPHORUS 2022-01-19 18:09:00 [facility] Tien P [facility] BASIC METABOLIC PANEL 2022-01-19 18:09:00 [facility] P [facility] CORTISOL, TOTAL 2022-01-19 18:09:00 Karin Bassett [facility] URINALYSIS W/REFLEX TO 2022-01-19 17:22:00 LindseyTien P [facility] Health URINE CULTURE URINALYSIS 2022-01-19 17:22:00 Tien Lucas P [facility] URINE CULTURE COLLECTION 2022-01-19 17:22:00 Tien Lucas [facility] KIT COMPUTED TOMOGRAPHY 2022-01-19 13:29:00 Tien Lucas [facility] ABDOMEN AND PELVIS WITHOUT CONTRAST CBC/DIFF 2022-01-19 04:44:00 Tien Lucas [facility] CBC 2022-01-19 04:44:00 Tien Lucas [facility] DIFFERENTIAL, MANUAL (NO 2022-01-19 04:44:00 [facility] BASIC METABOLIC PANEL 2022-01-18 17:15:00 [facility] CBC/DIFF 2022-01-18 04:46:00 Tien Lucas [facility] MAGNESIUM 2022-01-18 04:46:00 Tien Lucas [facility] PHOSPHORUS 2022-01-18 04:46:00 Tien Lucas [facility] BASIC METABOLIC PANEL 2022-01-18 04:46:00 Ori Goldberg [facility] CBC 2022-01-18 04:46:00 Tien Lucas [facility] HIV AG/AB COMBO ROUTINE 2022-01-18 04:46:00 Karin Bassett [facility] SCREENING ENTERIC PATHOGENS NUCLEIC 2022-01-18 03:25:00 Karin Bassett [facility] ACID TEST BASIC METABOLIC PANEL 2022-01-18 00:29:00 Ori Goldberg [facility] BASIC METABOLIC PANEL 2022-01-17 17:07:00 [facility] BASIC METABOLIC PANEL 2022-01-17 13:15:00 [facility] Lucas [facility] CALPROTECTIN FECAL 2022-01-17 12:38:00 Tien Lucas ealth FECAL LEUKOCYTES 2022-01-17 12:38:00 Tien Lucas [facility] lt T-TRANSGLUTAMINASE IGA 2022-01-17 12:22:00 Tien Lucas [facility] BASIC METABOLIC PANEL 2022-01-17 08:51:00 Tein [facility] BASIC METABOLIC PANEL 2022-01-17 04:47:00 [facility] CBC/DIFF 2022-01-17 04:47:00 Tien Lucas [facility] MAGNESIUM 2022-01-17 04:47:00 Lindsey Tiensanto [facility] PHOSPHORUS 2022-01-17 04:47:00 Tien Lucas [facility] CBC 2022-01-17 04:47:00 Tien Lucas [facility] BASIC METABOLIC PANEL 2022-01-17 00:08:00 Tien Lucas Triton [facility] 12 LEAD EKG 2022-01-16 21:23:25 Tien Lucas [facility] BASIC METABOLIC PANEL 2022-01-16 21:08:00 Tien Lucas [employer] XRAY CHEST 2 VIEWS 2022-01-16 19:56:00 Tien Lucas [facility] ealth IP CONSULT TO PHYSICAL 2022-01-16 19:17:17 Tien Lucas is Health THERAPY CONSULT CLINICAL CASE 2022-01-16 19:17:17 Tien Lucas [employer] [facility] MANAGEMENT (RN/SW) SEQUENTIAL COMPRESSION 2022-01-16 19:17:17 Tien Lucas [facility] PUMP SODIUM, URINE, RANDOM 2022-01-16 16:00:00 Nieves, Colin [facility] CREATININE, URINE, RANDOM 2022-01-16 16:00:00 Nieves, Colin [facility] OSMOLALITY, URINE 2022-01-16 16:00:00 Nieves, Colin [facility] SARS-COV-2, FLU A/B, RSV 2022-01-16 15:20:00 Nieves, Kevin [facility] CORONAVIRUS, COVID-19, OLENA 2022-01-16 15:20:00 [place] Kevin [facility] FOLIC ACID 2022-01-16 14:13:00 NievesKevin barreto [facility] ealt CREATININE POC 2022-01-16 13:55:00 Raymon Martint h BMP POC 2022-01-16 13:46:00 Raymon Mratin h CBC/DIFF 2022-01-16 12:12:00 Raymon aMrtint h CBC 2022-01-16 12:12:00 Raymon Martin Healt [facility] BASIC METABOLIC PANEL 2022-01-16 12:11:00 Sadiq Vargas [facility] MAGNESIUM 2022-01-16 12:11:00 Sadiq Vargas philipp [facility] VITAMIN B12 2022-01-16 12:11:00 Kevin Nieves ealth OSMOLALITY,SERUM 2022-01-16 12:11:00 Kevin Nieves [facility] INFUSION PUMP 2022-01-11 09:21:05 Helene Anderson [facility] GLUCOSE POC 2022-01-11 07:54:00 Helene Anderson [facility] BASIC METABOLIC PANEL 2022-01-11 04:07:00 Merissa Richards [facility] MAGNESIUM 2022-01-11 04:07:00 [facility] 2022-01-11 04:07:00 Merissa Richards [facility] h CBC/DIFF 2022-01-11 04:06:00 Merissa Richards [facility] h IRON PROFILE 2022-01-11 04:06:00 [facility] FOL[facility] 2022-01-11 04:06:00 Mer[facility] CBC 2022-01-11 04:06:00 Merissa Richards [facility] GLUCOSE POC 2022-01-10 18:16:00 Helene Anderson [facility] URINALYSIS 2022-01-10 16:10:00 Merissa Richards [facility] h URINALYSIS 2022-01-10 16:10:00 Merissa Richards [facility] SARS-COV-2, FLU A/B, RSV 2022-01-10 15:54:00 Merissa Richards [facility] CORONAVIRUS, COVID-19, OLENA 2022-01-10 15:54:[address] [facility] BASIC METABOLIC PANEL 2022-01-10 15:54:00 Merissa Richards [facility] VITAMIN B12 2022-01-10 15:54:00 [facility] VBG POC 2022-01-10 11:14:00 Dia Jewell [facility] CBC/DIFF 2022-01-10 11:13:00 Antoine Hester [facility] h BASIC METABOLIC PANEL 2022-01-10 11:13:00 Antoine Hester [facility] LACTIC ACID 2022-01-10 11:13:00 Antoine Hester [facility] h CBC 2022-01-10 11:13:00 Antoine Hester [facility] LIVER PROFILE 2022-01-10 11:13:00 Fercho Merissa Mims [facility] CK, TOTAL 2022-01-10 11:13:00 [facility] FERRITIN 2022-01-10 11:13:00 Merissa Richards [facility] h CREATINE KINASE MB (CKMB) 2022-01-10 11:13:00 Merissa Richards [facility] XRAY CHEST 2 VIEWS 2022-01-08 21:50:14 Tanja Sebastian [facility] CBC/DIFF 2022-01-08 21:27:00 Tanja Sebastian [facility] BASIC METABOLIC PANEL 2022-01-08 21:27:00 Tanja Sebastian [facility] LIVER PROFILE 2022-01-08 21:27:00 Tanja Sebastian [facility] CK, TOTAL 2022-01-08 21:27:00 Randa Sebastianandra [facility] lt TROPONIN I 2022-01-08 21:27:00 Tanja Sebastian [facility] lt CBC 2022-01-08 21:27:00 Randa Sebastianandra Watson [facility] CREATINE KINASE MB (CKMB) 2022-01-08 21:27:00 Randa Sebastianandra [facility] 12 LEAD EKG 2022-01-08 20:59:56 Randa Sebastianandra [facility] COMP. METABOLIC PANEL 2021-09-14 03:41:00 Mickey Ramos [facility] ([id number]) [facility] CBC WITH DIFF 2021-09-14 03:41:00 Mickey Ramos [facility] CT HEAD WO CONTRAST 2021-09-12 14:10:00 Alona Carty [facility] TROPONIN I 2021-09-12 13:00:00 Odin [facility] BASIC METABOLIC PANEL (NA, 2021-09-12 13:00:00 Odin [facility] K, CL, CO2, GLUCOSE, BUN, Medica l Branch CREATININE, CA) CBC WITH DIFF 2021-09-12 13:00:00 Odin [facility] N-TERMINAL PRO-BNP 2021-09-12 13:00:00 Alona Carty [facility] LIPASE 2021-09-09 05:30:00 Sebastian Pacheco [facility] COMP. METABOLIC PANEL 2021-09-09 05:30:00 Sebastian Pacheco [facility] ([id number]) [facility] CBC WITH DIFF 2021-09-09 05:30:00 Sebastian Pacheco [facility] URINALYSIS 2021-09-08 04:45:00 Sebastian Pacheco [facility] CT ABDOMEN PELVIS W 2021-09-08 02:25:23 Sebastian Pacheco [facility] CONTRAST [facility] LIPASE 2021-09-08 02:02:00 Sebastian Pacheco [facility] COMP. METABOLIC PANEL 2021-09-08 02:02:00 Sebastian Pacheco [facility] ([id number]) [facility] CBC WITH DIFF 2021-09-08 02:02:00 Sebastian Pacheco [facility] LACTIC ACID WHOLE BLOOD 2021-09-08 02:02:00 Sebastian Pacheco [facility] COVID-19 (ID NOW RAPID 2021-09-08 01:54:00 Sebastian Pacheco [facility] TESTING) Medical Branch BASIC METABOLIC PANEL (NA, 2021-09-04 12:30:00 Demario Godoy [facility] K, CL, CO2, GLUCOSE, BUN, Medica l Branch CREATININE, CA) BASIC METABOLIC PANEL (NA, 2021-09-04 12:30:00 Demario Godoy [facility] K, CL, CO2, GLUCOSE, BUN, Medica l Branch CREATININE, CA) SURGICAL PATHOLOGY EXAM 2021-09-03 14:01:00 Bia Pedro [facility] COLOSTOMY REVISION 2021-09-03 12:58:00 Phatak, [facility] COLOSTOMY REVISION 2021-09-03 12:58:00 Mayela [facility] BASIC METABOLIC PANEL (NA, 2021-09-03 11:26:00 Siddiqi, Cynthia [facility] K, CL, CO2, GLUCOSE, BUN, Medica l Branch CREATININE, CA) CBC WITHOUT DIFF 2021-09-03 11:26:00 Siddiqi, [facility] BASIC METABOLIC PANEL (NA, 2021-09-03 11:26:00 Siddiqi, Cynthia [facility] K, CL, CO2, GLUCOSE, BUN, Medica l Branch CREATININE, CA) CBC WITHOUT DIFF 2021-09-03 11:26:00 Siddiqi, [facility] TRANSTHORACIC ECHO (TTE) 2021-09-02 21:22:12 Siddiqi, Cynthia [facility] [place] COMPLETE W/ CONTRAST [facility] TRANSTHORACIC ECHO (TTE) 2021-09-02 21:22:12 Siddiqi, Cynthia [facility] [place] COMPLETE W/ CONTRAST [facility] COVID-19 (ID NOW RAPID 2021-09-02 19:35:00 Demario Godoy [facility] [place] TESTING) Medical Branch LAB ONLY COVID 2021-09-02 19:35:00 Demario Godoy [facility] INTERPRETATION Medical Branch COVID-19 (ID NOW RAPID 2021-09-02 19:35:00 Demario Godoy [facility] TESTING) Medical Branch LAB ONLY COVID 2021-09-02 19:35:00 Demario Godoy [facility] INTERPRETATION Medical Branch BASIC METABOLIC [...] BASIC METABOLIC PANEL (NA, 2021-09-01 21:20:00 Siddiqi, [facility] K, CL, CO2, GLUCOSE, BUN, Medica l Branch CREATININE, CA) BLOOD CULTURE SCREEN 2021-09-01 08:03:00 Chasity [facility] BASIC METABOLIC PANEL (NA, 2021-09-01 08:03:00 Siddiqi, [facility] K, CL, CO2, GLUCOSE, BUN, Medica l Branch CREATININE, CA) CBC WITH DIFF 2021-09-01 08:03:00 Siddiqi, [facility] BLOOD CULTURE SCREEN 2021-09-01 08:03:00 [facility] BASIC METABOLIC PANEL (NA, 2021-09-01 08:03:00 Siddiqi, [facility] K, CL, CO2, GLUCOSE, BUN, Medica l Branch CREATININE, CA) CBC WITH DIFF 2021-09-01 08:03:00 Siddiqi, [facility] MAGNESIUM 2021-09-01 02:09:00 [facility]OL[facility] PANEL (NA, 2021-09-01 02:09:00 Roberto [facility] K, CL, CO2, GLUCOSE, BUN, Arpita Medica l Branch CREATININE, CA) MAGNESIUM 2021-09-01 02:09[facility]OL[facility] PANEL (NA, 2021-09-01 02:09:00 Roberto [facility] K, CL, CO2, GLUCOSE, BUN, Arpita Medica l Branch CREATININE, CA) LACTIC ACID WHOLE BLOOD 2021-08-31 12:40:00 Siddiqi, [facility] LACTIC ACID WHOLE BLOOD 2021-08-31 12:40:00 Siddiqi, [facility] BASIC METABOLIC PANEL (NA, 2021-08-31 11:44:00 Chasity [facility] K, CL, CO2, GLUCOSE, BUN, Medica l Branch CREATININE, CA) BASIC METABOLIC PANEL (NA, 2021-08-31 11:44:00 Chasity, [facility] K, CL, CO2, GLUCOSE, BUN, Medica l Branch CREATININE, CA) BASIC METABOLIC PANEL (NA, 2021-08-31 06:29:00 Gaspar, [facility] K, CL, CO2, GLUCOSE, BUN, Medica l Branch CREATININE, CA) LACTIC ACID WHOLE BLOOD 2021-08-31 06:29:00 Chasity, [facility] BASIC METABOLIC PANEL (NA, 2021-08-31 06:29:00 Gaspar, [facility] K, CL, CO2, GLUCOSE, BUN, Medica l Branch CREATININE, CA) LACTIC ACID WHOLE BLOOD 2021-08-31 06:29:00 [facility] SCREEN 2021-08-31 06:28:00 Chasity [facility] BLOOD CULTURE WORKUP 2021-08-31 06:28:00 Chasity [facility] GRAM POSITIVE BLOOD 2021-08-31 06:28:00 [facility] PROBE-AEROBIC BLOOD CULTURE SCREEN 2021-08-31 06:28:00 Chasity [facility] BLOOD CULTURE WORKUP 2021-08-31 06:28:00 Chasity [facility] GRAM POSITIVE BLOOD 2021-08-31 06:28:00 Chasity [facility] PATHOGENS DNA [facility] PROBE-AEROBIC XR CHEST 2 VW 2021-08-31 03:08:00 Riccardo [facility] XR CHEST 2 VW 2021-08-31 03:08:00 [facility] O[facility], SERUM OR 2021-08-31 02:44:00 [facility] 2021-08-31 02:44:00 [facility] 2021-08-31 02:44:00 [facility] BASIC [facility]OLIC PANEL (NA, 2021-08-31 02:44:00 Riccardo [facility] K, CL, CO2, GLUCOSE, BUN, [facility] CREATININE, CA) OSMOLALITY, SERUM OR 2021-08-31 02:44:00 [facility] TROPONIN I 2021-08-31 02:44:00 Riccardo [facility] THYROID STIMULATING 2021-08-31 02:44:00 [facility] BASIC METABOLIC PANEL (NA, 2021-08-31 02:44:00 [facility], CL, CO2, GLUCOSE, BUN, [facility] CREATININE, CA) OSMOLALITY URINE 2021-08-31 00:08:00 Chasity [facility] URINALYSIS 2021-08-31 00:08:00 Riccardo [facility] SODIUM, URINE RANDOM 2021-08-31 00:08:00 [facility]IDE, URINE RANDOM 2021-08-31 00:08:00 [facility] OSMOLALITY URINE 2021-08-31 00:08:00 Chasity [facility] URINALYSIS 2021-08-31 00:08:00 Nidianew [facility] SODIUM, URINE RANDOM 2021-08-31 00:08:00 [facility] CHLORIDE, URINE RANDOM 2021-08-31 00:08:00 [facility] TROPONIN I 2021-08-30 23:27:00 Riccardo [facility] COMP. METABOLIC PANEL 2021-08-30 23:27:00 Riccardo [facility] ([id number]) [facility] CBC WITH DIFF 2021-08-30 23:27:00 Riccardo Gayatri [facility] N-TERMINAL PRO-BNP 2021-08-30 23:27:00 Gayatri Gu [facility] TROPONIN I 2021-08-30 23:27:00 Riccardo [facility] COMP. METABOLIC PANEL 2021-08-30 23:27:00 Riccardo [facility] ([id number]) [facility] CBC WITH DIFF 2021-08-30 23:27:00 Riccardo [facility] N-TERMINAL PRO-BNP 2021-08-30 23:27:00 Gayatri Gu [facility] HB ECG ROUTINE & RHYTHM 2021-08-30 23:04:48 Gayatri Gu Un [facility] HB ECG ROUTINE & RHYTHM 2021-08-30 23:04:[address] [facility] XR CHEST 1 VW 2021-08-30 00:31:51 Alvarez Austin [facility] POCT RAPID STREP SCREEN 2021-08-30 00:24:00 Alvarez Austin [facility] FOR GROUP A [facility] GALV ONLY - INFLUENZA A B 2021-08-30 00:15:00 Alvarez Austin [facility] RSV PCR Medical Branch COVID-19 (MOLECULAR 2021-08-30 00:15:00 Alvarez Austin [facility] TESTING [facility] NUCLEIC ACID AMPLIFICATION) PREALBUMIN, SERUM 2021-08-05 10:46:00 Cesar [facility] PHOSPHORUS 2021-08-05 10:46:00 Cesar [facility] ALBUMIN 2021-08-05 10:46:00 Cesar [facility] MAGNESIUM 2021-08-05 10:46:00 Cesar [facility] BASIC METABOLIC PANEL (NA, 2021-08-05 10:46:00 Jessica Guerrero [facility] K, CL, CO2, GLUCOSE, BUN, Medica l Branch CREATININE, CA) CBC WITH DIFF 2021-08-05 10:46:00 Jessica Guerrero [facility] COVID-19 (ID NOW RAPID 2021-08-05 00:29:00 Jessica Guerrero [facility] TESTING) Medical [facility] PHOSPHORUS 2021-08-04 11:37:00 Hakeem Jo [facility] MAGNESIUM 2021-08-04 11:37:00 [facility]ABOLIC PANEL (NA, 2021-08-04 11:37:00 Hakeem Jo [facility] K, CL, CO2, GLUCOSE, BUN, [facility] CREATININE, CA) CBC WITH DIFF 2021-08-04 11:37:00 Hakeem Jo [facility] PHOSPHORUS 2021-08-03 10:36:00 Hakeem Jo [facility] MAGNESIUM 2021-08-03 10:36:00 [facility] BASIC METABOLIC PANEL (NA, 2021-08-03 10:36:00 Hakeem Jo [facility] K, CL, CO2, GLUCOSE, BUN, [place] CREATININE, CA) CBC WITH DIFF 2021-08-03 10:36:00 Hakeem Jo [facility] PHOSPHORUS 2021-08-02 10:53:00 Hakeem Jo [facility] MAGNESIUM 2021-08-02 10:53:00 [facility] BASIC METABOLIC PANEL (NA, 2021-08-02 10:53:00 Hakeem Jo [facility] K, CL, CO2, GLUCOSE, BUN, [facility] CREATININE, CA) CBC WITH DIFF 2021-08-02 10:53:00 Hakeem Jo [facility] PHOSPHORUS 2021-08-01 10:03:00 Hakeem Jo [facility] MAGNESIUM 2021-08-01 10:03:00 Hakeem Jo [facility] BASIC METABOLIC PANEL (NA, 2021-08-01 10:03:00 Hakeem Jo, [facility] K, CL, CO2, GLUCOSE, BUN, [facility] CREATININE, CA) CBC WITH DIFF 2021-08-01 10:03:00 Hakeem Jo [facility] PREALBUMIN, SERUM 2021-07-31 10:22:00 Antonino jin [facility] [place], [place] [facility] PHOSPHORUS 2021-07-31 10:22:00 [facility] 2021-07-31 10:22:00 [facility] BASIC METABOLIC PANEL (NA, 2021-07-31 10:22:00 Hakeem Jo, [facility] K, CL, CO2, GLUCOSE, BUN, [facility] CREATININE, CA) CBC WITH DIFF 2021-07-31 10:22:00 Hakeem Jo [facility] COVID-19 (ID NOW RAPID 2021-07-30 06:13:00 Jonah Rees [facility] TESTING) Medical Branch LAB ONLY COVID 2021-07-30 06:13:00 Jonah Rees [facility] INTERPRETATION [facility] CT ABDOMEN PELVIS W 2021-07-30 05:19:01 Jonah Rees [facility] CONTRAST [facility] COMP. METABOLIC PANEL 2021-07-30 03:25:00 Jonah Rees [facility] ([id number]) [facility] LACTIC ACID WHOLE BLOOD 2021-07-30 02:53:00 Jonah Rees [facility] LIPASE 2021-07-30 02:52:00 Jonah Rees [facility] CBC WITH DIFF 2021-07-30 02:52:00 Jonah Rees [facility] CONSENT/REFUSAL FOR 2021-07-30 02:09:09 Doctor Unassigned, [facility] DIAGNOSIS AND TREATMENT [place] [facility] PHOSPHORUS 2021-07-26 12:30:00 Antonino Dietrich de [employer] [place] [facility] MAGNESIUM 2021-07-26 12:30:00 Antonino Dietrich [facility] [place], [place] [facility] BASIC METABOLIC PANEL (NA, 2021-07-26 12:30:00 Antoninostefano Dietrich de [employer] [place] K, CL, CO2, GLUCOSE, BUN, [place], [place] [facility] ical [facility] CREATININE, CA) CBC WITH DIFF 2021-07-26 12:30:00 Antonino Dietrich [facility] Leda, [place] [facility] h PHOSPHORUS 2021-07-25 11:32:00 [facility] 2021-07-25 11:32:00 [facility] BASIC METABOLIC PANEL (NA, 2021-07-25 11:32:00 Antonino Karlo de [employer] [place] K, CL, CO2, GLUCOSE, BUN, [place], [place] [facility] CREATININE, CA) CBC WITH DIFF 2021-07-25 11:32:00 Antonino Dietrich [facility] [place], [place] [facility] CBC WITH DIFF 2021-07-25 04:13:00 Cesar [facility] PHOSPHORUS 2021-07-24 12:18:00 Cesar [facility] MAGNESIUM 2021-07-24 12:18:00 Cesar, [facility] BASIC METABOLIC PANEL (NA, 2021-07-24 12:18:00 CesarJessica ayala [employer] [place] K, CL, CO2, GLUCOSE, BUN, Medica l Branch CREATININE, CA) COVID-19 (ID NOW RAPID 2021-07-23 15:23:00 Flaco Lemus [facility] TESTING) Medical Branch LAB ONLY COVID 2021-07-23 15:23:00 Flaco Lemus [facility] URINALYSIS 2021-07-23 12:49:00 [facility] 2021-07-23 12:42:00 Hakeem Jo, [facility] MAGNESIUM 2021-07-23 12:42:00 Hakeem Jo [facility] BASIC METABOLIC PANEL (NA, 2021-07-23 12:42:00 Beau [facility] K, CL, CO2, GLUCOSE, BUN, [facility] CREATININE, CA) CBC WITH DIFF 2021-07-23 12:42:00 Hakeem Jo [facility] CT ABDOMEN PELVIS WO 2021-07-23 08:55:17 Flaco Lemus [facility] EXTERNAL PROVIDER RECORDS 2021-06-25 05:01:00 Doctor Unassigned, [facility] [place] [facility] BASIC METABOLIC PANEL (NA, 2021-06-03 10:37:00 Shweta Anderson [facility] K, CL, CO2, GLUCOSE, BUN, Medica l Branch CREATININE, CA) BASIC METABOLIC PANEL (NA, 2021-06-02 10:54:00 Shweta Anderson [facility] K, CL, CO2, GLUCOSE, BUN, Medica l Branch CREATININE, CA) CLOSTRIDIUM DIFFICILE 2021-06-01 22:51:00 [facility] [place] [facility] TOXIN [facility] FECAL PATHOGENS BY PCR 2021-06-01 22:51:00 [facility]ordon[facility]frid [facility] BASIC METABOLIC PANEL (NA, 2021-06-01 15:42:00 Shweta Anderson [facility] K, CL, CO2, GLUCOSE, BUN, Medica l Branch CREATININE, CA) LACTIC ACID WHOLE BLOOD 2021-06-01 05:38:00 Clementine Castellon [facility] CT ABDOMEN PELVIS W 2021-05-31 23:25:45 Willie Garrett [facility] LIPASE 2021-05-31 22:44:00 Willie Garrett [facility] TROPONIN I 2021-05-31 22:44:00 Willie Garrett [facility] COMP. METABOLIC PANEL 2021-05-31 22:44:00 Willie Garrett [facility] ([id number]) Medical Branch CBC WITH DIFF 2021-05-31 22:44:00 Willie Garrett [facility] COVID-19 (ID NOW RAPID 2021-05-31 22:44:00 Willie Garrett [facility] TESTING) Medical Branch LAB ONLY COVID 2021-05-31 22:44:00 Willie Garrett [facility] INTERPRETATION [facility] PHOSPHORUS 2021-05-21 09:03:00 Cesar [facility] MAGNESIUM 2021-05-21 09:03:00 Cesar [facility] BASIC METABOLIC PANEL (NA, 2021-05-21 09:03:00 NoonanAgatha [facility] K, CL, CO2, GLUCOSE, BUN, Medica l Branch CREATININE, CA) CBC WITH DIFF 2021-05-21 09:03:00 Agatha Noonan [facility] XR KUB 2021-05-20 20:02:49 [facility] LIPASE 2021-05-20 20:00:00 [facility] COMP. METABOLIC PANEL 2021-05-20 20:00:00 Bernardo Donnelly [facility] ([id number]) Medical Branch CBC WITH DIFF 2021-05-20 20:00:00 [facility]rzej [facility] LACTIC ACID WHOLE BLOOD 2021-05-20 20:00:00 Andrzej [facility] COVID-19 (ID NOW RAPID 2021-05-20 20:00:00 Bernardo Donnelly [facility] TESTING) Medical Branch BASIC METABOLIC PANEL (NA, 2021-05-08 10:04:00 Abu Rodrick Lora [facility] K, CL, CO2, GLUCOSE, BUN, Medica l Branch CREATININE, CA) CBC WITH DIFF 2021-05-08 10:04:00 Abu Diogo Lora [facility] XR KUB 2021-05-08 09:44:22 Beto [facility] XR ABDOMEN 1 VW 2021-05-08 05:32:36 Abu [facility] CT ABDOMEN PELVIS W 2021-05-08 01:08:43 Alona Pérez [facility] CONTRAST Medical Branch HEPATIC FUNCTION PANEL 2021-05-08 00:49:00 Beto [facility] ([id number]) (ALB,T.PRO,BILI Medical Branch T,BU/BC,ALT,AST,ALK PHOS) BASIC METABOLIC PANEL (NA, 2021-05-08 00:49:00 Alona Pérez [facility] K, CL, CO2, GLUCOSE, BUN, Medica l Branch CREATININE, CA) CBC WITH DIFF 2021-05-08 00:49:00 Beto [facility] COVID-19 (ID NOW RAPID 2021-05-08 00:42:00 [facility] TESTING) Medical Branch LAB ONLY COVID 2021-05-08 00:42:00 Beto [facility] INTERPRETATION [facility] NOTICE OF PRIVACY 2020-09-27 01:47:31 Doctor Unassigned, [facility] PRACTICES [place] [facility] CONSENT/REFUSAL FOR 2020-09-27 01:47:01 Doctor Unassigned, [facility] DIAGNOSIS AND TREATMENT [place] [facility] BASIC METABOLIC PANEL (NA, 2020-08-23 10:03:00 Nataly [facility] K, CL, CO2, GLUCOSE, BUN, Medica l Branch CREATININE, CA) CBC WITHOUT DIFF 2020-08-23 10:03:00 Judith Ingram [facility] COVID-19 (ID NOW RAPID 2020-08-23 00:23:00 Funmilayo Pinzon [facility] TESTING) Medical Branch HB ECG ROUTINE & RHYTHM 2020-08-22 22:19:37 Funmilayo Pinzon [facility] STRIP Medical Branch HEPATIC FUNCTION PANEL 2020-08-22 22:08:00 Funmilayo Pinzon [facility] ([id number]) (ALB,T.PRO,BILI Medical Branch T,BU/BC,ALT,AST,ALK PHOS) BASIC METABOLIC PANEL (NA, 2020-08-22 22:08:00 Nallely Pinzon [facility] K, CL, CO2, GLUCOSE, BUN, Medica l Branch CREATININE, CA) CBC WITH DIFF 2020-08-22 22:08:00 Funmilayo Pinzon [facility] CT SOFT TISSUE NECK W 2020-07-10 00:21:10 Juan M Aguillon [facility] URINALYSIS 2020-07-09 23:07:00 Juan M Aguillon [facility] BASIC METABOLIC PANEL (NA, 2020-07-09 22:51:00 Kirk Aguillon [facility] K, CL, CO2, GLUCOSE, BUN, Medica l Branch CREATININE, CA) CBC WITH DIFF 2020-07-09 22:51:00 Juan M Aguillon [facility] RAPID STREP SCREEN FOR 2020-07-09 22:51:00 Juan M Aguillon [facility] GROUP A Medical Branch COVID-19 (ID NOW RAPID 2020-07-09 22:51:00 Juan M Aguillon [facility] TESTING) [facility] CT ABDOMEN PELVIS W 2020-06-05 13:02:55 Travis Valdez [facility] URINALYSIS 2020-06-05 13:02:00 More Goetz [facility] EKG-12 LEAD 2020-06-05 11:57:46 More Goetz [facility] LIPASE 2020-06-05 11:57:00 More Goetz [facility] TROPONIN I 2020-06-05 11:57:00 More Goetz [facility] HEPATIC FUNCTION PANEL 2020-06-05 11:57:00 More Goetz [facility] ([id number]) (ALB,T.PRO,BILI Medical Branch T,BU/BC,ALT,AST,ALK PHOS) BASIC METABOLIC PANEL (NA, 2020-06-05 11:57:00 More Goetz [facility] K, CL, CO2, GLUCOSE, BUN, Medica l Branch CREATININE, CA) CBC WITH DIFF 2020-06-05 11:57:00 More Goetz [facility] LACTIC ACID WHOLE BLOOD 2020-06-05 11:57:00 More Goetz [facility] PHOSPHORUS 2020-05-31 07:54:00 Katia Gomez [facility] MAGNESIUM 2020-05-31 07:54:00 Katia Gomez [facility] BASIC METABOLIC PANEL (NA, 2020-05-31 07:54:00 Katia Gomez [facility] K, CL, CO2, GLUCOSE, BUN, Medica l Branch CREATININE, CA) CBC WITH DIFF 2020-05-31 07:54:00 Katia Gomez [facility] IR CHANGE OF ABSCESS DRAIN 2020-05-30 19:33:43 Ashwin [facility] PHOSPHORUS 2020-05-30 08:19:00 Lambreton Gonzales, [facility] MAGNESIUM 2020-05-30 08:19:00 Lambreton Gonzales, [facility] BASIC METABOLIC PANEL (NA, 2020-05-30 08:19:00 Lambreton Carlos a[facility] [employer] [place] K, CL, CO2, GLUCOSE, BUN, Rex [facility] CREATININE, CA) PHOSPHORUS 2020-05-29 06:43:00 Lambreton Gonzales, [facility] MAGNESIUM 2020-05-29 06:43:00 Lambreton Gonzales, [facility] BASIC METABOLIC PANEL (NA, 2020-05-29 06:43:00 Lambreton Carlos a, [employer] [place] K, CL, CO2, GLUCOSE, BUN, [facility] CREATININE, CA) PHOSPHORUS 2020-05-28 09:08:00 Lambreton Gonzales, [facility] MAGNESIUM 2020-05-28 09:08:00 Lambreton Gonzales, [facility] BASIC METABOLIC PANEL (NA, 2020-05-28 09:08:00 Lambreton Carlos a, [employer] [place] K, CL, CO2, GLUCOSE, BUN, [facility] CREATININE, CA) PHOSPHORUS 2020-05-27 09:33:00 Lambreton Gonzales, [facility] MAGNESIUM 2020-05-27 09:33:00 Lambreton Gonzales, [facility] BASIC METABOLIC PANEL (NA, 2020-05-27 09:33:00 Lambreton Carlos a, [facility] K, CL, CO2, GLUCOSE, BUN, [facility] CREATININE, CA) PHOSPHORUS 2020-05-26 09:27:00 Lambreton Gonzales, [facility] MAGNESIUM 2020-05-26 09:27:00 Lambreton Gonzales, [facility] BASIC METABOLIC PANEL (NA, 2020-05-26 09:27:00 Lambreton Carlos a, [facility] K, CL, CO2, GLUCOSE, BUN, [facility] CREATININE, CA) PHOSPHORUS 2020-05-25 21:42:00 Lambreton Gonzales, [facility] MAGNESIUM 2020-05-25 21:42:00 Lambreton Gonzales, [facility] BASIC METABOLIC PANEL (NA, 2020-05-25 21:42:00 Lambreton Carlos a, [facility] K, CL, CO2, GLUCOSE, BUN, [facility] CREATININE, CA) CBC WITH DIFF 2020-05-25 21:42:00 Lambreton Gonzales, [facility] XR KUB 2020-05-25 20:39:54 [facility] 2020-05-25 08:48:00 Lambreton Gonzales, [facility] MAGNESIUM 2020-05-25 08:48:00 Lambreton Gonzales, [facility] BASIC METABOLIC PANEL (NA, 2020-05-25 08:48:00 Lambreton Carlos a, [facility] K, CL, CO2, GLUCOSE, BUN, [facility] CREATININE, CA) PHOSPHORUS 2020-05-24 20:41:00 Lambreton Gonzales, [facility] MAGNESIUM 2020-05-24 20:41:00 [facility] BASIC METABOLIC PANEL (NA, 2020-05-24 20:41:00 Socorro escoto, [facility] K, CL, CO2, GLUCOSE, BUN, [facility] CREATININE, CA) IR CHANGE OF ABSCESS DRAIN 2020-05-24 17:57:11 Vance Stafford [facility] IR ASPIRATION ABSCESS 2020-05-24 17:24:40 Randa [facility] BULLA OR CYST BY NEEDLE [facility] ASPIRATE OR ABSCESS 2020-05-24 17:23:00 Nixon Prince [facility] CULTURE(AEROBIC/ANAEROBIC) Medic al Branch CBC WITH DIFF 2020-05-24 11:08:00 Sumeet [facility] Anahi [facility] CT ABDOMEN PELVIS W 2020-05-23 15:02:24 [facility] CONTRAST [facility] BASIC METABOLIC PANEL (NA, 2020-05-23 09:45:00 [facility] K, CL, CO2, GLUCOSE, BUN, Anahi Medica [facility] Branch CREATININE, CA) COVID-19 (PCR MOLECULAR 2020-05-23 06:53:00 Mayela [facility] TESTING) Medical Branch URINALYSIS 2020-05-22 21:41:00 Colette Ingeri [facility] LIPASE 2020-05-22 21:26:00 Lopez, [facility] HEPATIC FUNCTION PANEL 2020-05-22 21:26:00 Alex Loepz [facility] ([id number]) (ALB,T.PRO,BILI [facility] T,BU/BC,ALT,AST,ALK PHOS) BASIC METABOLIC PANEL (NA, 2020-05-22 21:26:00 Alex Lopez [facility] K, CL, CO2, GLUCOSE, BUN, Medica l Branch CREATININE, CA) CBC WITH DIFF 2020-05-22 21:26:00 Lopez, [facility] PROTHROMBIN TIME / INR 2020-05-22 21:26:[address] [facility] ACTIVATED PARTIAL THRMPLAS 2020-05-22 21:26:00 Alex Lopez [facility] SELENA [facility] XR CHEST 1 VW 2020-05-22 20:55:00 Alex Lopez [facility] HOSPITAL ADMISSION 2020-05-22 05:01:00 Doctor Unassigned, [facility] [place] [facility] URINALYSIS 2020-05-20 09:58:00 Jonah Rodriguez [facility] COVID-19 (ID NOW RAPID 2020-05-20 09:48:00 Jonah Rodriguez [facility] TESTING) Medical Branch CT ABDOMEN PELVIS W 2020-05-20 04:07:43 Jonah Rodriguez [facility] CONTRAST Medical Branch LIPASE 2020-05-20 03:09:00 Michael [facility] MAGNESIUM 2020-05-20 03:09:00 Jonah Rodriguez [facility] TROPONIN I 2020-05-20 03:09:00 Michael [facility] COMP. METABOLIC PANEL 2020-05-20 03:09:[address] [facility] ([id number]) Medical Branch CBC WITH DIFF 2020-05-20 03:09:00 Jonah Rodriguez [facility] PHOSPHORUS 2020-05-10 09:13:00 [facility] 2020-05-10 09:13:00 Randa [facility] BASIC METABOLIC PANEL (NA, 2020-05-10 09:13:00 Randa Julio [facility] K, CL, CO2, GLUCOSE, BUN, Medica l Branch CREATININE, CA) CBC WITH DIFF 2020-05-10 09:13:00 Randa [facility] PHOSPHORUS 2020-05-09 10:28:00 Randa [facility] MAGNESIUM 2020-05-09 10:28:00 [facility] BASIC METABOLIC PANEL (NA, 2020-05-09 10:28:00 Randa [facility] K, CL, CO2, GLUCOSE, BUN, Medica l Branch CREATININE, CA) CBC WITH DIFF 2020-05-09 10:28:00 Randa [facility] PHOSPHORUS 2020-05-08 11:18:00 Randa [facility] MAGNESIUM 2020-05-08 11:18:00 [facility] BASIC METABOLIC PANEL (NA, 2020-05-08 11:18:00 [facility] K, CL, CO2, GLUCOSE, BUN, Medica l Branch CREATININE, CA) CBC WITH DIFF 2020-05-08 11:18:00 [facility] PHOSPHORUS 2020-05-07 09:21:00 [facility] MAGNESIUM 2020-05-07 09:21:00 [facility] BASIC METABOLIC PANEL (NA, 2020-05-07 09:21:00 [facility] K, CL, CO2, GLUCOSE, BUN, Medica l Branch CREATININE, CA) CBC WITH DIFF 2020-05-07 09:21:00 [facility] PHOSPHORUS 2020-05-06 09:57:00 [facility] MAGNESIUM 2020-05-06 09:57:00 [facility] BASIC METABOLIC PANEL (NA, 2020-05-06 09:57:00 [facility] K, CL, CO2, GLUCOSE, BUN, Medica l Branch CREATININE, CA) CBC WITH DIFF 2020-05-06 09:56:00 [facility] IR DRAINAGE BY CATHETER 2020-05-05 19:55:00 [facility] PERITONEAL OR Medical Branch RETROPERITONEAL BODY FLUID 2020-05-05 19:06:00 Nixon Prince [facility] CULTURE(AEROBIC/ANAEROBIC) [facility] FUNGUS (ROUTINE) CULTURE 2020-05-05 19:06:00 Nixon Prince [facility] BODY FLUID 2020-05-05 19:00:00 Jerri, Andi [facility] CULTURE(AEROBIC/ANAEROBIC) [facility] FUNGUS (ROUTINE) CULTURE 2020-05-05 19:00:00 Ivan Guthrie [facility] PREPARE PACKED RBC 2020-05-05 15:59:33 Hakeem Jo [facility] HB ABO GROUPING 2020-05-05 10:55:00 [facility] PREALB[facility]IN, SERUM 2020-05-05 08:56:00 Randa [facility] PHOSPHORUS 2020-05-05 08:56:00 [facility] 2020-05-05 08:56:00 [facility] BASIC METABOLIC PANEL (NA, 2020-05-05 08:56:00 Randa [facility] K, CL, CO2, GLUCOSE, BUN, Medica l Branch CREATININE, CA) CBC WITH DIFF 2020-05-05 08:56:00 [facility]IN[facility]YSIS 2020-05-05 05:11:00 Lora Hall [facility] CT ABDOMEN PELVIS W 2020-05-05 04:18:56 Lora Hall [facility] LIPASE 2020-05-05 02:35:00 Lora Hall [facility] COMP. METABOLIC PANEL 2020-05-05 02:35:00 Lora Hall [facility] ([id number]) [facility] CBC WITH DIFF 2020-05-05 02:35:00 Lora Hall [facility] COVID-19 (ID NOW RAPID 2020-05-05 02:27:00 Lora Hall [facility] TESTING) Medical Branch HOSPITAL ADMISSION 2020-05-04 05:01:00 Doctor Unassigned, [facility] [place] Medical [facility] CBC WITH DIFF 2020-05-01 11:32:00 Randa [facility] PHOSPHORUS 2020-05-01 11:32:00 [facility] 2020-05-01 11:32:00 [facility] BASIC METABOLIC PANEL (NA, 2020-05-01 11:32:00 Randa [facility] K, CL, CO2, GLUCOSE, BUN, Medica l Branch CREATININE, CA) CBC WITH DIFF 2020-04-29 11:31:00 [facility] 2020-04-29 11:31:00 [facility] MAGNESIUM 2020-04-29 11:31:00 [facility] BASIC METABOLIC PANEL (NA, 2020-04-29 11:31:00 Julio Tolentino [facility] K, CL, CO2, GLUCOSE, BUN, Medica l Branch CREATININE, CA) CBC WITH DIFF 2020-04-28 08:51:00 Becky, [facility] MAGNESIUM 2020-04-28 08:51:00 Becky, [facility] BASIC METABOLIC PANEL (NA, 2020-04-28 08:51:00 Becky, [facility] K, CL, CO2, GLUCOSE, BUN, Cathryn [facility]ica [facility] CREATININE, CA) CBC WITH DIFF 2020-04-27 09:34:00 Becky, [facility] MAGNESIUM 2020-04-27 09:34:00 Becky, [facility] BASIC METABOLIC PANEL (NA, 2020-04-27 09:34:00 Becky, [facility] K, CL, CO2, GLUCOSE, BUN, Cathryn [facility] CREATININE, CA) CBC WITH DIFF 2020-04-26 09:27:00 Becky, [facility] MAGNESIUM 2020-04-26 09:27:00 Becky, [facility] BASIC METABOLIC PANEL (NA, 2020-04-26 09:27:00 Becky, [facility] K, CL, CO2, GLUCOSE, BUN, Cathryn [facility] CREATININE, CA) CBC WITH DIFF 2020-04-25 08:59:00 Becky, [facility] MAGNESIUM 2020-04-25 08:59:00 Becky, [facility] BASIC METABOLIC PANEL (NA, 2020-04-25 08:59:00 Becky, [facility] K, CL, CO2, GLUCOSE, BUN, Cathryn [facility] CREATININE, CA) CBC WITH DIFF 2020-04-24 09:44:00 Becky, [facility] MAGNESIUM 2020-04-24 09:44:00 Becky, [facility] BASIC METABOLIC PANEL (NA, 2020-04-24 09:44:00 Becky [facility] K, CL, CO2, GLUCOSE, BUN, Cathryn [facility] CREATININE, CA) CT ABDOMEN PELVIS W 2020-04-23 23:24:02 Grant Cheema, [facility] CONTRAST [facility] CT THORAX W CONTRAST 2020-04-23 23:24:02 Grant Cheema, [facility] COVID-19 (ID NOW RAPID 2020-04-23 15:06:00 Grant Cheema, [facility] TESTING) [facility] PREALBUMIN, SERUM 2020-04-23 13:42:00 Grant Cheema, [facility] sity [facility] POTASSIUM SERUM 2020-04-23 13:42:00 Becky [facility] CBC WITH DIFF 2020-04-23 10:17:00 Becky [facility] MAGNESIUM 2020-04-23 10:17:00 Becky [facility] BASIC METABOLIC PANEL (NA, 2020-04-23 10:17:00 Becky [facility] K, CL, CO2, GLUCOSE, BUN, Cathryn [facility] CREATININE, CA) XR CHEST 1 VW 2020-04-23 10:03:00 Becky [facility] MAGNESIUM 2020-04-22 10:37:00 Becky [facility] BASIC METABOLIC PANEL (NA, 2020-04-22 10:37:00 Becky [facility] K, CL, CO2, GLUCOSE, BUN, Cathryn [facility] CREATININE, CA) CBC WITH DIFF 2020-04-22 10:30:00 Becky [facility] XR CHEST 1 VW 2020-04-22 07:30:00 Becky [facility] CBC WITH DIFF 2020-04-21 13:09:00 Becky, [facility] MAGNESIUM 2020-04-21 13:09:00 Becky, [facility] BASIC METABOLIC PANEL (NA, 2020-04-21 13:09:00 Becky [facility] K, CL, CO2, GLUCOSE, BUN, Cathryn Medica [facility] CREATININE, CA) XR CHEST 1 VW 2020-04-21 06:41:00 Grant Cheema [facility] XR CHEST 1 VW 2020-04-20 11:03:41 Grant Cheema [facility] CBC WITH DIFF 2020-04-20 09:45:00 Katrina [facility] PREALBUMIN, SERUM 2020-04-20 09:45:00 [facility] 2020-04-20 09:45:00 Carola [facility] MAGNESIUM 2020-04-20 09:45:00 Katrina [facility] BASIC METABOLIC PANEL (NA, 2020-04-20 09:45:00 Yosvany Herndon [facility] K, CL, CO2, GLUCOSE, BUN, Medica l Branch CREATININE, CA) XR CHEST 1 VW 2020-04-19 10:13:45 Becky [facility] CBC WITH DIFF 2020-04-19 10:10:00 Katrina [facility] PHOSPHORUS 2020-04-19 10:10:00 Carola [facility] MAGNESIUM 2020-04-19 10:10:00 Katrina [facility] BASIC METABOLIC PANEL (NA, 2020-04-19 10:10:00 Yosvany Herndon [facility] K, CL, CO2, GLUCOSE, BUN, Medica l Branch CREATININE, CA) XR CHEST 1 VW 2020-04-18 11:01:00 Becky [facility] CBC WITH DIFF 2020-04-18 10:19:00 Katrina [facility] PHOSPHORUS 2020-04-18 10:19:00 Carola [facility] MAGNESIUM 2020-04-18 10:19:00 Katrina [facility] BASIC METABOLIC PANEL (NA, 2020-04-18 10:19:00 Yosvany Herndon [facility] K, CL, CO2, GLUCOSE, BUN, Medica l Branch CREATININE, CA) XR CHEST 1 2020-04-17 18:58:00 Rosaura Pena [facility] CBC WITH DIFF 2020-04-17 09:33:00 Katrina [facility] PHOSPHORUS 2020-04-17 09:33:00 Carola [facility] MAGNESIUM 2020-04-17 09:33:00 Katrina [facility] BASIC METABOLIC PANEL (NA, 2020-04-17 09:33:00 Katrina, [facility] K, CL, CO2, GLUCOSE, BUN, Medica l Branch CREATININE, CA) XR CHEST 1 2020-04-17 08:52:00 Grant Cheema [facility] XR CHEST 1 2020-04-16 23:45:00 [facility] BODY FLUID 2020-04-16 21:50:00 [facility] CULTURE(AEROBIC/ANAEROBIC) [facility] FUNGUS (ROUTINE) CULTURE 2020-04-16 21:50:00 Rivera [facility] CYTO PLEURAL FLUID 2020-04-16 21:50:00 Rivera [facility] LDH TOTAL BODY FLUID 2020-04-16 21:50:00 Rivera [facility] AMYLASE BODY FLUID 2020-04-16 21:50:00 Rivera [facility] GLUCOSE BODY FLUID 2020-04-16 21:[facility] 2020-04-16 21:50[facility]00 [facility] T.[facility] FLUID 2020-04-16 21:50:00 [facility] DIRECT COUNT 2020-04-16 21:50:00 Rivera [facility] IR PLEURAL DRAINAGE WITH 2020-04-16 21:36:25 Rosaura Pena [facility] TUBE WITH IMAGING [facility] PROTHROMBIN TIME / INR 2020-04-16 16:07:00 Rosaura Pena [facility] CBC WITH DIFF 2020-04-16 10:07:00 Katrina [facility] PHOSPHORUS 2020-04-16 10:07:00 Carola [facility] MAGNESIUM 2020-04-16 10:07:00 Katrina [facility] BASIC METABOLIC PANEL (NA, 2020-04-16 10:07:00 Yosvany Herndon [facility] K, CL, CO2, GLUCOSE, BUN, Medica l Branch CREATININE, CA) CT ABDOMEN PELVIS W 2020-04-16 07:02:21 Grant Cheema [facility] CBC WITH DIFF 2020-04-15 10:02:00 Katrina [facility] PHOSPHORUS 2020-04-15 10:02:00 Carola [facility] MAGNESIUM 2020-04-15 10:02:00 Katrina [facility] BASIC METABOLIC PANEL (NA, 2020-04-15 10:02:00 Yosvany Herndon [facility] K, CL, CO2, GLUCOSE, BUN, Medica l Branch CREATININE, CA) CBC WITH DIFF 2020-04-14 10:26:00 Katrina [facility] PHOSPHORUS 2020-04-14 10:26:00 Carola [facility] MAGNESIUM 2020-04-14 10:26:00 Katrina [facility] BASIC METABOLIC PANEL (NA, 2020-04-14 10:26:00 Yosvany Herndon [facility] K, CL, CO2, GLUCOSE, BUN, Medica l Branch CREATININE, CA) BASIC METABOLIC PANEL (NA, 2020-04-13 23:53:00 Grant Santana i [facility] K, CL, CO2, GLUCOSE, BUN, Danny Medica l [facility] CREATININE, CA) CBC WITHOUT DIFF 2020-04-13 23:53:00 Grant Cheema [facility] IR DRAINAGE BY CATHETER 2020-04-13 20:35:08 Grant Cheema [facility] PERITONEAL OR [facility] RETROPERITONEAL BODY FLUID 2020-04-13 20:05:00 Neris Grier [facility] CULTURE(AEROBIC/ANAEROBIC) Medic al Branch LDH TOTAL BODY FLUID 2020-04-13 20:05:00 Grant Cheema, [facility] GLUCOSE BODY FLUID 2020-04-13 20:05:00 Arlette Kilgore [facility] T.PROTEIN BODY FLUID 2020-04-13 20:05:00 Grant Cheema, [facility] BODY FLUID DIRECT COUNT 2020-04-13 20:05:00 Grant Cheema [facility] CBC WITH DIFF 2020-04-13 10:44:00 Katrina [facility] PHOSPHORUS 2020-04-13 10:44:00 Carola [facility] MAGNESIUM 2020-04-13 10:44:00 Katrina [facility] BASIC METABOLIC PANEL (NA, 2020-04-13 10:44:00 Yosvany Herndon [facility] K, CL, CO2, GLUCOSE, [facility]UN, [facility] CREATIN[facility], CA) CT ABDOMEN PELVIS W 2020-04-12 21:23:19 Melissa Kilgore [facility] CONTRAST [facility] URINALYSIS 2020-04-12 20:43:00 Rosaura Pena [facility] URINE CULTURE 2020-04-12 20:43:00 Rosaura Pena [facility] BLOOD CULTURE WORKUP 2020-04-12 18:51:00 Rosaura Pena [facility] GRAM NEGATIVE BLOOD 2020-04-12 18:51:00 Rosaura Pena [facility] PATHOGENS DNA [facility] PROBE-ANAEROBIC BLOOD CULTURE SCREEN 2020-04-12 18:51:00 Rosaura Pena [facility] BLOOD CULTURE SCREEN 2020-04-12 18:50:00 Rosaura Pena [facility] CBC WITH DIFF 2020-04-12 08:46:00 Katrina [facility] PHOSPHORUS 2020-04-12 08:46:00 Carola [facility] MAGNESIUM 2020-04-12 08:46:00 Katrina [facility] BASIC METABOLIC PANEL (NA, 2020-04-12 08:46:00 Yosvany Herndon [facility] K, CL, CO2, GLUCOSE, BUN, Medica l Branch CREATININE, CA) CBC WITH DIFF 2020-04-11 08:54:00 Katrina [facility] PHOSPHORUS 2020-04-11 08:54:00 Carola [facility] MAGNESIUM 2020-04-11 08:54:00 Katrina [facility] BASIC METABOLIC PANEL (NA, 2020-04-11 08:54:00 Yosvany Herndon [facility] K, CL, CO2, GLUCOSE, BUN, Medica l Branch CREATININE, CA) CBC WITH DIFF 2020-04-10 09:49:00 Katrina [facility] PHOSPHORUS 2020-04-10 09:49:00 Carola [facility] MAGNESIUM 2020-04-10 09:49:00 Katrina [facility] XR CHEST 1 VW 2020-04-09 11:27:00 Grant Cheema [facility] CBC WITH DIFF 2020-04-09 09:07:00 Katrina [facility] PHOSPHORUS 2020-04-09 09:07:00 Carola [facility] MAGNESIUM 2020-04-09 09:07:00 Katrina [facility] HEPATIC FUNCTION PANEL 2020-04-09 09:07:00 Grant Cheema [facility] ([id number]) (ALB,T.PRO,[facility] T,BU/BC,ALT,AST,ALK PHOS) BASIC METABOLIC PANEL (NA, 2020-04-09 09:07:00 Yosvany Herndon [facility] K, CL, CO2, GLUCOSE, BUN, Medica l Branch CREATININE, CA) AC PANEL 20 + LACTIC ACID 2020-04-08 21:11:00 [facility]OM[facility]) 2020-04-08 12:27:00 [facility]ia [facility] PANEL 21 + LACTIC ACID 2020-04-08 09:34:00 Bigg Lawton Un [facility] POCT GLUCOSE (AUTOMATED) 2020-04-08 09:33:00 Bia Pedro Uni [facility] CBC WITH DIFF 2020-04-08 09:26:00 Katrina [facility] MAGNESIUM 2020-04-08 09:26:00 Katrina [facility] BASIC METABOLIC PANEL (NA, 2020-04-08 09:26:00 [facility] K, CL, CO2, GLUCOSE, BUN, Medica l Branch CREATININE, CA) POCT GLUCOSE (AUTOMATED) 2020-04-08 04:24:00 Bia Pedro Uni [facility] POCT GLUCOSE (AUTOMATED) 2020-04-08 00:36:00 Bia Pedro Uni versity [facility] POCT GLUCOSE (AUTOMATED) 2020-04-07 21:24:00 Bia Pedro Uni [facility] POCT GLUCOSE (AUTOMATED) 2020-04-07 16:49:00 Griffin Pedroa Uni [facility] AC PANEL 20 + LACTIC ACID 2020-04-07 14:14:00 [facility] LACTIC ACID WHOLE BLOOD 2020-04-07 13:53:00 [facility] (AUTOMATED) 2020-04-07 12:50:00 [facility] PANEL 20 + LACTIC ACID 2020-04-07 11:16:00 Yosvany Herndon [facility] MAGNESIUM 2020-04-07 08:48:00 Katrina [facility] BASIC METABOLIC PANEL (NA, 2020-04-07 08:48:00 [facility] K, CL, CO2, GLUCOSE, BUN, Medica [facility] CREATININE, CA) CBC WITH DIFF 2020-04-07 08:48:00 Katrina [facility] XR CHEST 1 VW 2020-04-07 08:10:00 Becky [facility] POCT GLUCOSE (AUTOMATED) 2020-04-07 04:36:00 Bia Pedro [facility] AC PANEL 21 + LACTIC ACID 2020-04-07 02:05:00 Bigg Lawton [facility] MRSA / MSSA SCREEN BY PCR, 2020-04-07 02:05:00 Grant Santana i [facility] BLOOD CULTURE SCREEN 2020-04-07 02:05:00 Grant Cheema [facility] POCT GLUCOSE (AUTOMATED) 2020-04-07 00:37:00 Bia Pedro [facility] HCV ANTIBODY 2020-04-06 23:44:00 Grant Cheema [facility] POCT GLUCOSE (AUTOMATED) 2020-04-06 23:43:00 Bia Pedro [facility] HIV 1/2 AG-AB WITH REFLEX 2020-04-06 23:30:00 Grant Cheema [facility] POCT GLUCOSE (AUTOMATED) 2020-04-06 22:14:00 Bia Pedro [facility] ECHO ROUTINE W/DOPPLER 2020-04-06 20:25:[address] [facility] PROTHROMBIN TIME / INR 2020-04-06 19:00:00 Rosaura Pena [facility] ACTIVATED PARTIAL THRMPLAS 2020-04-06 19:00:00 Becky [facility] MAGNESIUM 2020-04-06 19:00:00 Becky [facility] BASIC METABOLIC PANEL (NA, 2020-04-06 19:00:00 Becky [facility] K, CL, CO2, GLUCOSE, BUN, [facility] CREATININE, CA) COMP. METABOLIC PANEL 2020-04-06 19:00:00 Yosvany Herndon [facility] ([id number]) [facility] CBC WITH DIFF 2020-04-06 19:00:00 Katrina [facility] AC PANEL 21 + LACTIC ACID 2020-04-06 18:59:00 Simi [facility] ABG+COOX+NA+K+GLU+CA2+ 2020-04-06 16:06:00 Bia Pedro [facility] INTUBATION 2020-04-06 16:04:59 Ana Syed [facility] XR CHEST 1 VW 2020-04-06 15:43:00 Katrina [facility] SURGICAL PATHOLOGY EXAM 2020-04-06 15:12:00 Juventino Mccabe [facility] CENTRAL LINE 2020-04-06 14:52:37 Cynthia Herring [facility] E [facility] ARTERIAL LINE 2020-04-06 14:51:44 Ana Syed [facility] ASPIRATE OR ABSCESS 2020-04-06 14:50:29 Person, [facility] CULTURE(AEROBIC/ANAEROBIC) Medic al Branch [employer] CULTURE 2020-04-06 14:50:29 Person, [facility] FUNGUS (ROUTINE) CULTURE 2020-04-06 14:50:29 Person, Juventino [facility] ABG+COOX+NA+K+GLU+CA2+ 2020-04-06 14:46:00 Bia Pedro [facility] HB ABO GROUPING 2020-04-06 14:39:00 Dana Sampson [facility] EXPLORATORY LAPAROTOMY 2020-04-06 13:51:00 Juventino Mccabe [facility] URINE CULTURE 2020-04-06 13:48:00 Grant Cheema [facility] XR KUB 2020-04-06 13:34:22 Grant Cheema [facility] XR CHEST 1 VW 2020-04-06 13:34:22 Grant Cheema [facility] MAGNESIUM 2020-04-06 11:47:00 Becky [facility] BASIC METABOLIC PANEL (NA, 2020-04-06 11:47:00 Becky [facility] K, CL, CO2, GLUCOSE, BUN, Cathryn [facility] CREATININE, CA) CBC WITH DIFF 2020-04-06 11:47:00 [facility] 2020-04-05 21:34:47 Grant Cheema [facility] XR KUB 2020-04-05 19:41:00 Grant Cheema [facility] MAGNESIUM 2020-04-05 09:44:00 Becky [facility] BASIC METABOLIC PANEL (NA, 2020-04-05 09:44:00 Becky [facility] K, CL, CO2, GLUCOSE, BUN, Cathryn [facility] CREATININE, CA) CBC WITH DIFF 2020-04-05 09:44:00 Becky [facility] MAGNESIUM 2020-04-04 10:09:00 Becky [facility] BASIC METABOLIC PANEL (NA, 2020-04-04 10:09:00 Becky [facility] K, CL, CO2, GLUCOSE, BUN, Cathryn [facility] CREATININE, CA) CBC WITH DIFF 2020-04-04 10:09:00 [facility]AM 2020-04-03 20:13:00 [facility] LAPAROSCOPIC COLECTOMY 2020-04-03 15:35:00 Mayela [facility] COLONOSCOPY 2020-04-03 15:35:00 Mayela [facility] COLECTOMY 2020-04-03 15:35:00 Mayela [facility] MAGNESIUM 2020-04-03 09:20:00 Becky [facility] BASIC METABOLIC PANEL (NA, 2020-04-03 09:20:00 Becky [facility] K, CL, CO2, GLUCOSE, BUN, [facility] CREATININE, CA) CBC WITH DIFF 2020-04-03 09:20:00 Becky [facility] HB ABO GROUPING 2020-04-02 22:45:00 Hugo Alfaro [facility] MAGNESIUM 2020-04-02 10:22:00 Becky [facility] BASIC METABOLIC PANEL (NA, 2020-04-02 10:22:00 Becky [facility] K, CL, CO2, GLUCOSE, BUN, [facility] CREATININE, CA) CBC WITH DIFF 2020-04-02 10:22:00 [facility] COVID-19 (ID NOW RAPID 2020-04-01 23:02:00 [facility] TESTING) [facility] URINALYSIS 2020-03-31 11:25:00 Alex Lopez [facility] CT ABDOMEN PELVIS W 2020-03-31 00:17:06 Alex Lopez [facility] CONTRAST [facility] XR CHEST 1 VW 2020-03-30 22:43:49 Colette Ingeri [facility] EKG-12 LEAD 2020-03-30 22:14:24 Doctor Unassigned, [facility] [place] [facility] PROTHROMBIN TIME / INR 2020-03-30 22:05:[address] [facility] ACTIVATED PARTIAL THRMPLAS 2020-03-30 22:05:00 [facility] SELENA [facility] N-TERMINAL PRO-BNP 2020-03-30 22:05:00 Alex Lopez [facility] LIPASE 2020-03-30 22:05:00 Colette Ingeri [facility] TROPONIN I 2020-03-30 22:05:00 Colette Ingeri [facility] HEPATIC FUNCTION PANEL 2020-03-30 22:05:00 Alex Lopez [facility] ([id number]) (ALB,T.PRO,BILI Medical Branch T,BU/BC,ALT,AST,ALK PHOS) BASIC METABOLIC PANEL (NA, 2020-03-30 22:05:00 Alex Lopez [facility] K, CL, CO2, GLUCOSE, BUN, Medica l Branch CREATININE, CA) CBC WITH DIFF 2020-03-30 22:05:00 Co[facility] EKG-12 LEAD 2020-03-30 22:01:44 [facility] HOSPITAL ADMISSION 2020-03-30 05:01:00 Doctor Unassigned, [facility] [place] [facility] MAGNESIUM 2020-03-26 09:57:00 Simin [facility] BASIC METABOLIC PANEL (NA, 2020-03-26 09:57:00 Simin, [facility] K, CL, CO2, GLUCOSE, BUN, Medica l Branch CREATININE, CA) CBC WITH DIFF 2020-03-26 09:57:00 Simin [facility] LACTIC ACID WHOLE BLOOD 2020-03-26 04:09:00 [facility] (ID NOW RAPID 2020-03-26 02:01:00 Bernardo Donnelly [facility] TESTING) [facility] CT ABDOMEN PELVIS W 2020-03-26 01:17:18 Bernardo Donnelly [facility] CONTRAST Medical Branch PHOSPHORUS 2020-03-26 00:39:00 Simin [facility] MAGNESIUM 2020-03-26 00:39:00 Simin [facility] HEPATIC FUNCTION PANEL 2020-03-26 00:39:00 Bernardo Donnelly [facility] ([id number]) (ALB,T.PRO,[facility] T,BU/BC,ALT,AST,ALK PHOS) BASIC METABOLIC PANEL (NA, 2020-03-26 00:39:00 Bernardo Donnelly [facility] K, CL, CO2, GLUCOSE, BUN, [facility] CREATININE, CA) CBC WITH DIFF 2020-03-26 00:39:00 Andrzej [facility] EXTRA TUBE LT. BLUE 2020-03-26 00:39:00 Bernardo Donnelly [facility] HOSPITAL ADMISSION 2020-03-25 05:01:00 Doctor Unassigned, [facility] [place] [facility] PROTHROMBIN TIME / INR 2020-03-03 04:27:00 [facility] ACTIVATED PARTIAL THRMPLAS 2020-03-03 04:27:00 Zahraa Persaud se [facility] XR ABDOMEN ACUTE SERIES 2020-03-03 02:15:00 Shy [facility] PHOSPHORUS 2020-03-03 01:22:00 Ori Persaud [facility] MAGNESIUM 2020-03-03 01:22:00 Ori Persaud [facility] HEPATIC FUNCTION PANEL 2020-03-03 01:22:00 Shy [facility] ([id number]) (ALB,T.PRO,BILI [facility] T,BU/BC,ALT,AST,ALK PHOS) BASIC METABOLIC PANEL (NA, 2020-03-03 01:22:00 Sabi Begum [facility] K, CL, CO2, GLUCOSE, BUN, Medica l Branch CREATININE, CA) CBC WITH DIFFERENTIAL 2020-03-03 01:22:00 Shy [facility] URINALYSIS 2020-03-03 01:22:00 Syh [facility] LACTIC ACID WHOLE BLOOD 2020-03-03 01:22:00 Shy [facility] COVID-19 (ID NOW RAPID 2020-03-03 01:22:00 Shy [facility] TESTING) [facility] GALV/CLC ONLY - URINE DRUG 2020-02-27 20:02:00 [facility] (IMMUNOASSAY) - [facility] COMPREHENSIVE DRUG SCREEN FREE T4 2020-02-27 17:48:[address] [facility] THYROID STIMULATING 2020-02-27 17:48:00 [facility] FREE T3 2020-02-27 17:48:[address] [facility] CT ABDOMEN PELVIS W 2020-02-26 18:27:28 Alondra Fay [facility] CONTRAST [facility] COVID-19 (ID NOW RAPID 2020-02-26 06:41:00 Shy [facility] TESTING) Medical Branch XR ABDOMEN ACUTE SERIES 2020-02-26 04:48:30 Shy [facility] LIPASE 2020-02-26 03:35:00 Begum, [facility] HEPATIC FUNCTION PANEL 2020-02-26 03:35:00 Begum, [facility] ([id number]) (ALB,T.PRO,BILI [facility] T,BU/BC,ALT,AST,ALK PHOS) BASIC METABOLIC PANEL (NA, 2020-02-26 03:35:00 Shy [facility] K, CL, CO2, GLUCOSE, BUN, Medica l Branch CREATININE, CA) CBC WITH DIFFERENTIAL 2020-02-26 03:35:00 Shy [facility] LACTIC ACID WHOLE BLOOD 2020-02-26 03:35:00 Begum, [facility] EXTRA TUBE LT. BLUE 2020-02-26 03:35:00 Shy [facility] MAGNESIUM 2020-02-03 16:38:00 Simin [facility] BASIC METABOLIC PANEL (NA, 2020-02-03 16:38[facility], CO2, GLUCOSE, BUN, Medica l Branch CREATININE, CA) XR KUB 2020-01-31 16:59:00 [facility] BASIC METABOLIC PANEL (NA, 2020-01-31 06:15:00 Kirill Henson [facility] K, CL, CO2, GLUCOSE, BUN, Medica l Branch CREATININE, CA) CBC WITH DIFFERENTIAL 2020-01-31 06:15:00 Kirill Henson [facility] BASIC METABOLIC PANEL (NA, 2020-01-29 10:06:00 Nataly [facility] K, CL, CO2, GLUCOSE, BUN, Medica l Branch CREATININE, CA) CBC WITH DIFFERENTIAL 2020-01-29 10:06:00 [facility] (PCR MOLECULAR 2020-01-29 03:56:00 Liz [facility] TESTING) Medical Branch LACTIC ACID WHOLE BLOOD 2020-01-29 03:55:00 Bernardo Donnelly [facility] EXTRA TUBE LAV 2020-01-29 03:55:00 Liz [facility] EXTRA TUBE LT. BLUE 2020-01-29 03:55:00 Liz [facility] EXTRA TUBE LT. GREEN 2020-01-29 03:55:00 Liz [facility] URINALYSIS 2020-01-29 01:35:00 Silvia Jurado I [facility] COVID-19 (ID NOW RAPID 2020-01-29 01:32:00 Bernardo Donnelly [facility] TESTING) Medical Branch CT ABDOMEN PELVIS W 2020-01-28 23:53:[address] [facility] CONTRAST [facility] [place] [facility] LIPASE 2020-01-28 23:19:00 Silvia Jurado I [facility] HEPATIC FUNCTION PANEL 2020-01-28 23:19:00 ManchesterSilvia [facility] ([id number]) (ALB,T.PRO,BILI [facility] T,BU/BC,ALT,AST,ALK PHOS) BASIC METABOLIC PANEL (NA, 2020-01-28 23:19:00 Sondra Jurado I [facility] K, CL, CO2, GLUCOSE, BUN, Medica l Branch CREATININE, CA) CBC WITH DIFFERENTIAL 2020-01-28 23:19:00 Silvia [facility]ado [facility] H[facility] 2020-01-28 05:01:00 Doctor Unassigned, [facility] BASIC METABOLIC PANEL (NA, 2020-01-26 18:06:00 Sarah Duval [facility] K, CL, CO2, GLUCOSE, BUN, Medica l Branch CREATININE, CA) MAGNESIUM 2020-01-26 08:17:00 [place] [facility] XR KUB 2020-01-26 06:00:00 Helene Griffin [facility] PHOSPHORUS 2020-01-25 09:43:00 Ahmed, [facility] (ID NOW RAPID 2020-01-25 04:31:00 Shy [facility] TESTING) Medical Branch LACTIC ACID WHOLE BLOOD 2020-01-25 04:27:00 Shy [facility] CT ABDOMEN PELVIS W 2020-01-25 02:15:22 Shy [facility] CONTRAST [facility] URINALYSIS 2020-01-25 01:05:00 Begum, [facility] LIPASE 2020-01-25 00:42:00 Begum, [facility] HEPATIC FUNCTION PANEL 2020-01-25 00:42:00 Begum, [facility] ([id number]) (ALB,T.PRO,BILI [facility] T,BU/BC,ALT,AST,ALK PHOS) BASIC METABOLIC PANEL (NA, 2020-01-25 00:42:00 Begum, [facility] K, CL, CO2, GLUCOSE, BUN, Medica l Branch CREATININE, CA) CBC WITH DIFFERENTIAL 2020-01-25 00:42:00 Shy [facility] [id number] 2020-01-09 00:00:00 [facility] [place] [address] EXTERNAL PROVIDER RECORDS 2019-12-28 05:01:00 Doctor Unassigned, [facility] [place] Plan of Care Planned Activity Planned Date Details Comments Source Future Scheduled 2029-03-23 Screening for malignant [facility] Test 00:00:00 neoplasm of colon Medical Ce [facility]ter (procedure) [code = [id number]] Future Scheduled 2029-03-23 Screening for malignant [facility] Test 00:00:00 neoplasm of colon Medical Ce [facility]ter (procedure) [code = [id number]] Future Scheduled 2029-03-23 Screening for malignant [facility] Test 00:00:00 neoplasm of colon Medical Ce nter (procedure) [code = [id number]] Future Scheduled 2029-03-23 Screening for malignant [facility] Test 00:00:00 neoplasm of colon Medical Ce nter (procedure) [code = [id number]] Future Scheduled 2029-03-23 Screening for malignant [facility] Test 00:00:00 neoplasm of colon Medical Ce nter (procedure) [code = [id number]] Future Scheduled 2029-03-23 Screening for malignant [facility] Test 00:00:00 neoplasm of colon Medical Ce nter (procedure) [code = [id number]] Future Scheduled 2029-03-23 Screening for malignant [facility] Test 00:00:00 neoplasm of colon Medical Ce nter (procedure) [code = [id number]] Future Scheduled 2029-03-23 Screening for malignant [facility] Test 00:00:00 neoplasm of colon Medical Ce nter (procedure) [code = [id number]] Future Scheduled 2029-03-23 Screening for malignant [facility] 00:00:00 neoplasm of colon Medical Ce nter (procedure) [code = 995943830] Future Scheduled 2022-05-24 IMM Influenza [facility]al [facility] Future Scheduled 2020-02-14 Screening for malignant [facility] 00:00:00 neoplasm of colon (procedure) [code = 201100767] Future Scheduled 2020-02-14 Screening for malignant [facility] 00:00:00 neoplasm of colon (procedure) [code = 986207945] Future Scheduled 2020-02-14 Screening for malignant [facility] 00:00:00 neoplasm of colon (procedure) [code = 649099772] Future Scheduled 2020-02-14 SHINGLES VACCINES ([address] [facility] 00:00:00 2) [facility] Future Scheduled 2020-02-14 SHINGLES VACCINES ([address] [facility] 00:00:00 2) [facility] Future Scheduled 2020-02-14 SHINGLES VACCINES ([address] [facility] 00:00:00 2) [facility])] Future Scheduled 2005 Lipid panel (procedure) [facility] 00:00:00 [code = 55456114] Medical Ce nter Future Scheduled 2005 Lipid panel (procedure) [facility] 00:00:00 [code = 84775370] Medical Ce nter Future Scheduled 2005 Lipid panel (procedure) [facility] 00:00:00 [code = 10443412] Medical Ce nter Future Scheduled 2005 Lipid panel (procedure) [facility] 00:00:00 [code = 64121825] Medical Ce nter Future Scheduled 2005 Lipid panel (procedure) [facility] 00:00:00 [code = 46425209] Medical Ce nter Future Scheduled 1989 DTAP/TDAP/TD [...] [facility] 00:00:00 [code = CT Colonography [facility] (combo)] Future Scheduled 1970 Screening for malignant [facility] 00:00:00 neoplasm of colon Medical Ce nter (procedure) [code = 196964291] Future Scheduled 1970 Screening for malignant [facility] 00:00:00 neoplasm of colon Medical Ce nter (procedure) [code = 167063985] Future Scheduled 1970 Sigmoidoscopy [code = CH [...] colon Medical Ce nter (procedure) [code = 663847338] Future Scheduled 1970 Screening for malignant [facility] 00:00:00 neoplasm of colon Medical Ce nter (procedure) [code = 354624736] Future Scheduled 1970 Sigmoidoscopy [code = [facility] S[facility]oscopy] Medical Angele r Future Scheduled 1970 CT Colonography (combo) [facility] 00:00:00 [code = CT [facility] Future Scheduled 1970 Screening for malignant [facility] 00:00:00 neoplasm of colon Medical Ce nter (procedure) [code = 284005801] Future Scheduled 1970 Screening for malignant [facility] 00:00:00 neoplasm of colon Medical Ce nter (procedure) [code = 646934683] Future Scheduled 1970 Sigmoidoscopy [facility]code = [facility] Sigmoidoscopy] Medical Seda r Future Scheduled 1970 CT Colonography (combo) [facility] 00:00:00 [code = CT [facility])] Future Scheduled 1970 Screening for malignant [facility] 00:00:00 neoplasm of colon Medical Ce nter (procedure) [code = 105722238] Future Scheduled 1970 Screening for malignant [facility] 00:00:00 neoplasm of colon Medical Ce nter (procedure) [code = 773990924] Future Scheduled 1970 Sigmoidoscopy [facility]code = [facility] Sigmoidoscopy] Medical Seda r Future Scheduled 1970 CT Colonography (combo) [facility] 00:00:00 [code = CT [facility] ([facility])] Encounters Start End Encounter Admission Attending Care Care Encounter Source Date/Time Date/Time Type Type Clinicians Facility Department ID 2021-06-25 Emergency [facility] [id number] Univers 05:25:12 ity of [facility] 2021-06-25 Emergency [facility] [id number] Univers 01:41:18 ity of [facility] 2021-06-24 Emergency [facility] [id number] Univers 22:38:17 ity of [facility] 2021-06-22 Emergency [facility] [id number] Univers 21:40:44 ity of [facility] 2021-06-22 Emergency [facility] [id number] Univers 13:55:03 ity of [facility] 2021-06-22 Emergency [facility] [id number] Univers 05:54:16 ity of [facility] 2021-06-21 Emergency [facility] [id number] Univers 22:33:24 ity of [facility] 2021-06-21 Emergency [facility] [id number] Univers 22:33:24 ity of [facility] 2021-06-21 Emergency [facility] [id number] Univers 22:22:08 ity of [facility] 2021-06-21 Emergency [facility] [id number] Univers 20:04:56 ity of [facility] 2021-06-21 Emergency [facility] [id number] Univers 19:53:56 ity of [facility] 2021-06-21 Emergency [facility] [id number] Univers 19:37:27 ity of [facility] 2021-06-21 Emergency [facility] [id number] Univers 19:36:41 ity of [facility] 2021-06-21 Emergency [facility] [id number] Univers 17:11:26 ity of [facility] 2021-06-21 Emergency [facility] [id number] Univers 16:44:38 ity of [facility] 2021-06-21 Emergency [facility] [id number] Univers 11:19:16 ity of [facility] 2021-06-21 Emergency [facility] [id number] Univers 10:16:06 ity of [facility] 2021-06-21 Emergency [facility] [id number] Univers 06:08:42 ity of [facility] 2021-06-21 Emergency [facility] [id number] Univers 04:43:23 ity of [facility] 2021-06-21 Emergency [facility] [id number] Univers 04:42:49 ity of [facility] 2021-06-20 Emergency Rajan SCHAFFER [facility] PAKO [id number] Univers 18:31:02 OSMAR ity of [facility] 2020-02-23 Inpatient HCAPM LENNY [id number] [facility] 18:42:00 89 [facility] 2020-02-17 Inpatient EM Avtar, HCAPM MAS [id number] [facility] 00:22:00 Oladipo 75 [facility] 2020-01-05 Inpatient UR Perea, HCAPM [facility]01 [id number] [facility] 20:23:00 [facility] 2019-12-13 Inpatient HCAMN [facility] [id number] [facility] 17:52:00 47 [facility] 2022-04-14 2022-04-14 Transition ValdesASIA delongEddie 1.2.840.114 [id number] Univers 00:00:00 00:00:00 of Care Miryam RECINOS 350.1.13.10 [place] [id number] [facility] [address] 2022-04-09 2022-04-10 Emergency X [facility] ERT [id number] Univers 20:38:00 00:14:00 ALVAREZ ity of [facility] 2022-04-09 2022-04-10 Emergency [facility] 1.2.840.114 [id number] Univers 20:38:00 00:14:00 Alvarez OROPEZA 350.1.13.10 ity of [place] 4.2.7.2.686 [facility] [id number] [facility] 0[address] 2022-04-09 2022-04-09 Transition ValdesASIA delongEddie 1.2.840.114 [id number] Univers 00:00:00 00:00:00 of Care Miryam RECINOS 350.1.13.10 [place] [id number] [facility] [address] 2022-04-02 2022-04-08 Inpatient X [facility] URI [id number] Univers 11:42:00 12:30:00 GENO ity o f DIOGO [facility] 2022-04-02 2022-04-08 Hospital Rekha Sheehan [facility] 1.2.840.11 [id number] Univers 11:42:00 12:30:00 Encounter Juventino Thomas [facility] 350.1.13.10 ity of [place] 4.2.7.2.686 [place] [id number] [address] ([facility]) 2022-03-292022-03-29 Emergency EM White, HCACL AERS [id number] [facility] 14:26:00 16:45:00 Sabi Adams [facility] 2022-03-29 2022-03-29 Emergency EM White, HCACL HCACL [id number] [facility] 14:26:00 16:45:00 Sabi [address]93 [facility] 2022-03-25 2022-03-26 Inpatient E [facility] MED [id number] BL 13:38:00 10:16:00 , YESSI 2022-03-15 2022-03-18 Emergency E RADHA, [facility] MED 7502 [facility] 13:36:00 18:59:00 JULIO 2022-03-13 2022-03-13 Emergency [facility] [id number] [place] 15:33:00 20:25:00 [facility] 2022-03-13 2022-03-13 Emergency [facility] [id number] [place] 15:33:00 20:25:00 [facility] 2022-03-13 2022-03-13 Outpatient RONALD, [facility] [id number] [place] 00:00:00 00:00:00 [facility] 2022-03-06 2022-03-09 [place] [id number] 12:16:00 12:55:00 Encounter Norma Montalvo Fang-Ying M edical Heinen, [facility] Colin 2022-03-06 2022-03-09 Inpatient ER ANYALEONIDAS MERAZ [facility] Emergency [id number] [facility] 12:16:00 12:55:00 2022-03-06 2022-03-09 [facility] [id number] 12:16:00 12:55:00 Encounter Nomra Montalvo Fang-Ying M edical Heinen, [facility] 2022-03-06 2022-03-06 Outpatient [facility] [id number] [facility] 00:00:00 23:59:00 Jennifer gordon of Medicin e 2022-03-06 2022-03-06 Orders [facility] [id number] 00:00:00 00:00:00 Only [facility] 2022-03-06 2022-03-06 Travel [facility] [id number] [facility] 00:[facility]00 00:00:00 [facility] 2022-03-06 2022-03-06 Orders [facility] [id number] 00:00:00 00:00:00 Only [facility] 2022-03-06 2022-03-06 Travel [facility] [id number] [facility] 00:00:00 00:00:00 [facility] 2022-02-18 2022-02-20 Emergency Mitzi Carbajal [facility] [id number] Maged 13:58:00 11:55:00 [facility]uf[facility] Fannie Chavez 2022-02-18 2022-02-20 [facility] [id number] [place] 13:58:00 11:55:00 Calvert, [facility] Fannie Chavez 2022-02-18 2022-02-18 [facility] [id number] [place] 15:19:05 15:23:18 [facility] 2022-02-18 2022-02-18 [facility] [id number] [place] 13:58:00 13:58:00 [facility] 2022-02-18 2022-02-18 [facility] [id number] [place] 00:00:00 00:00:00 , OSCAR boss 2022-02-07 2022-02-11 [facility] [id number] [place] 13:40:00 13:22:00 [facility] JamilahTeresa de la garza 2022-02-07 2022-02-11 [facility] [id number] [place] 13:40:00 13:22:00 Encounter Daily Islas [facility] Teresa Alves 2022-02-07 2022-02-07 Outpatient 1 DAILY ISLAS [facility] [id number] [place] 13:40:00 13:40:00 [facility] 2022-01-30 2022-01-30 Emergency SEAN Pacheco, [facility] [id number] [facility] 17:02:00 18:29:00 Dwain 53 [facility] are [facility] 2022-01-30 2022-01-30 Emergency SEAN Pacheco [facility] [id number] [facility] 17:02:00 18:29:00 Dwain [id number] [facility] 2022-01-22 2022-01-22 Emergency [facility] [id number] [place] 17:24:00 20:39:00 [facility] 2022-01-22 2022-01-22 Emergency [facility] [id number] [place] 17:24:00 20:39:00 [facility] 2022-01-16 2022-01-21 Emergency Raymon Martin [facility] [id number] [place] 11:04:00 18:08:00 Karin Bassett [facility] 2022-01-16 2022-01-21 Emergency Raymon Martin [facility] [id number] [place] 11:04:00 18:08:00 Karin Bassett [facility] Sushil Craig Parth Esther 2022-01-19 2022-01-19 Outpatient [facility] [id number] [place] 12:34:08 13:29:31 [facility] 2022-01-16 2022-01-16 Outpatient [facility] [id number] [place] 19:42:28 20:01:28 [facility] 2022-01-16 2022-01-16 Outpatient 1 DANYELLE [facility] [id number] [place] 11:04:00 11:04:00 KARIN boss 2022-01-10 2022-01-11 Emergency Bert Reed [facility] [id number] [place] 10:58:00 11:20:00 Helene Anderson [facility] Merissa Richards 2022-01-10 2022-01-11 Emergency Bert Reed [facility] [id number] [place] 10:58:00 11:20:00 Helene Anderson [facility] Merissa Richards 2022-01-10 2022-01-10 Outpatient 1 JUSTIN [facility] [id number] [place] 10:58:00 10:58:00 HELENE [facility] 2022-01-08 2022-01-09 Emergency [facility] [id number] [place] 17:57:00 02:50:00 [facility] 2022-01-08 2022-01-09 Emergency [facility] [id number] [place] 17:57:00 02:50:00 [facility] 2022-01-08 2022-01-08 Emergency [facility] [id number] [place] 21:40:34 21:50:19 [facility] 2021-09-23 2021-09-23 Emergency EM Raffaele Levi HCACL AERS [id number] [facility] 19:35:00 21:10:[address] [place] [address] 2021-09-13 2021-09-13 Emergency X HARKEY, [facility] ERT [id number] Univers 21:20:00 22:36:00 [facility] 2021-09-13 2021-09-13 Emergency [place] 1.2.336.920 [id number] Univers 21:20:00 22:36:00 Mickey A HEALTH 350.1.13.10 it y of [place] 4.2.7.2.686 [facility] [phone] [address] ([facility]) 2021-09-13 2021-09-13 Emergency EM Raffaele Levi [facility] AERS [id number] [facility] 14:57:00 16:37:00 06 [facility] 2021-09-12 2021-09-12 Emergency X MORRICAL, [facility] ERT [id number] Univers 14:25:00 17:51:00 DWAIN ity [facility] 2021-09-12 2021-09-12 Emergency Morrical, TRAUMA 1.2.840.114 [id number] Univers 14:25:00 17:51:00 Dwain O CENTER 350.1.13.10 ity of 4.2.7.2.686 [facility] [id number] [address] 2021-09-12 2021-09-12 Emergency X JAMEY [facility] ERT [id number] Univers 06:20:00 10:10:00 CONSTANTIN ity of [facility] 2021-09-12 2021-09-12 Emergency Alona Carty [place] 1.2.840 .114 [id number] Univers 06:20:00 10:10:00 Constantin Concepcion HAWKINS 350.1.13.10 [place] [id number] [address] 2021-09-08 2021-09-09 Emergency X [facility] ERT [id number] Univers 23:01:00 01:30:00 SEBASTIAN ithiram [facility] 2021-09-08 2021-09-09 Emergency Tara, TRAU[place] 1.2.091.972 [id number] Univers 23:01:00 01:30:00 Sebastian [facility] 350.1.13.10 [place] [id number] [address] 2021-09-07 2021-09-07 Emergency X [facility] ERT [id number] Univers 19:24:00 23:44:00 SEBASTIAN ity [facility] 2021-09-07 2021-09-07 Emergency Pacheco, TRAUMA 1.2.245.885 [id number] Univers 19:24:00 23:44:00 Sebastian [facility] 350.1.13.10 [place] [id number] [address] 2021-09-06 2021-09-06 Emergency X [facility] ERT [id number] Univers 15:35:00 17:52:00 SEBASTIAN atwood [facility] 2021-09-06 2021-09-06 Emergency Pacheco, TRAUMA 1.2.350.724 [id number] Univers 15:35:00 17:52:00 Sebastian L HAWKINS 350.1.13.10 [place] [id number] [address] 2021-09-06 2021-09-06 Transition MELANIE Vallejo 1.2.840.114 [id number] Univers 00:00:00 00:00:00 of Care Emili TRINIDADY 350.1.13.10 ity of [place] [id number] [facility] [address] 2021-08-30 2021-09-05 Inpatient X [facility] PAKO [id number] Univers 16:53:00 16:00:00 ity of [facility] 2021-08-30 2021-09-05 [facility] Gayatri Gu 1 .2.840.114 [id number] Univers 16:53:00 16:00:00 Encounter Emre Sophia Clare ROMEROY 350.1 .13.10 ity of [facility] 4.2.7.2.686 [facility] [id number] Medical 0[address] 2021-09-03 2021-09-03 Surgery [facility] MARGARITA 1.2.840.114 [id number] Univers 07:15:00 10:04:00 [place] 350.1.13.10 [facility] 4.2.7.2.686 Javi as [id number] [facility] [address] 2021-08-29 2021-08-29 Emergency X IBIKUNLE, [facility] ERT [id number] Univers 17:15:00 20:03:00 FOLUSHO ity of [facility] 2021-08-29 2021-08-29 Emergency Ibikunle, TRAUMA 1.2.840.114 [id number] Univers 17:15:00 20:03:00 Folusho F CENTER 350.1.13.10 [place] [id number] [facility] 014 [address] 2021-07-29 2021-08-05 Inpatient X [facility] [id number] Univers 20:15:00 07:43:00 ity of [facility] 2021-07-29 2021-08-05 [facility] Jonah Rees 1.2.840.1 14 [id number] Univers 20:15:00 07:43:00 Encounter Karin Myers 350.1.13.1 0 ity of [facility] 4.2.7.2.686 [place] [id number] [facility] 0[address] 2021-07-29 2021-07-29 Transition MELANIE Vallejo 1.2.840.114 [id number] Univers 00:00:00 00:00:00 of Care Emili TRINIDADY 350.1.13.10 [place] [id number] [facility] [address] 2021-07-27 2021-07-27 Emergency EM Kateryna, HCAMN JULIA [id number] [facility] 10:15:00 12:36:[address] [place] [address] 2021-07-23 2021-07-26 Inpatient X [facility] [id number] Univers 00:39:00 14:50:00 ity of [facility] 2021-07-23 2021-07-26 Hospital Sabi Schultz 1.2.840 .114 [id number] Univers 00:39:00 14:50:[address] [facility] [place] 350.1.13.10 [facility] 4.2.7.2.686 Javi as [phone] [facility] 093 [address] 2021-07-22 2021-07-22 Emergency EM [facility] [id number] [facility] 04:25:00 08:20:00 Tarsumi 74 [facility] 2021-06-27 2021-06-27 Emergency EM Bridgett, [facility] [id number] [facility] 15:31:00 17:37:00 Sabi Pollard [facility] 2021-06-25 2021-06-25 Orders Doctor BERNARDO 1.2.840.114 [id number] Univers 00:00:00 00:00:00 Only Unassigned, [place] 350.1.13.10 ity of [place] [facility] 4.2.7.2.686 Javi as [id number] [facility] 009 Branch 2021-05-31 2021-06-04 Emergency Willie Garrett [facility] 1.2.840.1 14 [id number] Univers 17:10:00 16:38:00 Clementine [facility] 350.1.13.10 ity of [place] 4.2.7.2.686 [place] Mani Lylea Bhatt [phone] [facility] [address] ([facility]) 2021-05-20 2021-05-21 Emergency Bernardo Donnelly [facility] 1.2.840.114 [id number] Univers 14:29:00 17:10:00 NaylorScott silva [facility] 350.1.13.10 it[place] [phone] [facility] [address] ([facility]) 2021-05-10 2021-05-10 Transition Melanie Vallejo 1.2.840.114 [id number] Univers 00:00:00 00:00:00 of Care Emili Recinos 350.1.13.10 it[place] of [place] [id number] [facility] [address] 2021-05-07 2021-05-09 Hospital Alona Pérez [facility] 1.2.840.11 [id number] Univers 19:23:00 15:26:00 Encounter Diogo Keane [facility] 350.1.13. 10 ity of [place]ad [place] 4.2.7.2.686 [place] Mobile [phone] [facility] [address] ([facility]) 2021-04-28 2021-05-01 Inpatient [facility] [id number] [facility] 21:05:00 14:18:00 Marcello 03 Cl [facility] 2020-09-26 2020-09-26 Emergency Jose [facility] 1.2.415.717 [id number] Univers 16:56:00 23:00:00 Mariaelena Oropeza 350.1.13.10 i ty of [place] [phone] [facility] 084 [address] 2020-08-22 2020-08-24 Emergency Funmilayo Pinzon [facility] 1.2.8 40.114 [id number] Univers 15:31:00 14:20:00 SweeneyBart malik 350.1.13.10 ity of Ori [place] 4.2.7.2.686 [place] Bhatt [id number] [facility] [address] ([facility]) 2020-07-09 2020-07-09 Emergency Umbertoeki [facility] 1.2.840.114 [id number] Univers 16:23:00 19:43:00 , Juan M Chau 350.1.13.10 ity of [place] [id number] [facility] 014 [address] ([facility]) 2020-06-15 2020-06-15 Patient Saira Goodman 1.2.840.114 [id number] Univers 00:00:00 00:00:00 Outreach E Recinos 350.1.13.10 i ty [place] [id number] [address] 2020-06-12 2020-06-12 Patient Saira Goodman 1.2.840.114 [id number] Univers 00:00:00 00:00:00 Outreach E Recinos 350.1.13.10 i ty of [place] [id number] [address] 2020-06-08 2020-06-08 Patient Melanie Emanuel 1.2.840.114 [id number] Univers 00:00:00 00:00:00 Outreach Mela Arvizu Recinos 350.1.13.10 it[place] [id number] [address] 2020-06-07 2020-06-07 Patient Saira Goodmaneddie 1.2.840.114 [id number] Univers 00:00:00 00:00:00 Outreach E Recinos 350.1.13.10 i ty [place] [id number] [address] 2020-06-05 2020-06-05 Emergency Bishnu [facility] 1.2.840.114 [id number] Univers 06:47:00 10:55:00 More Oropeza 350.1.13.10 ity of [place].2.[place] [id number] [facility] 0[address] 2020-06-04 2020-06-04 Emergency Andrzej [facility] 1.2.693.384 [id number] Univers 10:36:00 13:38:00 [facility] 350.1.13.10 it y [place] [phone] [facility] 014 Branch ([facility]) 2020-06-04 2020-06-04 Patient Saira Goodman 1.2.840.114 [id number] Univers 00:00:00 00:00:00 Outreach E Recinos 350.1.13.10 i ty [place] [id number] [facility] [address] 2020-06-04 2020-06-04 Patient Melanie Emanuel 1.2.840.114 [id number] Univers 00:00:00 00:00:00 Outreach Mela Recinos 350.1.13.10 [place] [id number] [facility] [address] 2020-06-01 2020-06-01 Transition Melanie Vallejo 1.2.840.114 [id number] Univers 00:00:00 00:00:00 of Care Emili Trinidady 350.1.13.10 it[place] of [place] [id number] [facility] [address] 2020-05-22 2020-05-31 Hospital Alex Lopez 1.2.840.11 [id number] Univers 14:42:00 18:40:00 Encounter Bia Pedro 350.1.13.10 ity of Hospital 4.2.7.2.686 Javi as [phone] [facility] [address] 2020-05-31 2020-05-31 Patient Saira Goodman 1.2.840.114 [id number] Univers 00:00:00 00:00:00 Outreach E Recinos [id number] [id number] [address] 2020-05-23 2020-05-23 Outpatient R [facility] [id number] Univers 10:00:00 10:00:00 [id number] ity of [facility] 2020-05-23 2020-05-23 Patient Saira Goodman 1.2.840.114 [id number] Univers 00:00:00 00:00:00 Outreach E Rec[place] [id number] [place] [phone] [address] 2020-05-23 2020-05-23 Patient Saira Goodman 1.2.840.114 [id number] Univers 00:00:00 00:00:00 Outreach E Recinos 350.1.13.10 [id number] [address] 2020-05-23 2020-05-23 Patient Melanie Emanuel 1.2.840.114 [id number] Univers 00:00:00 00:00:00 Outreach Mela Recinos 350.1.13.10 [place] [phone] [address] 2020-05-21 2020-05-21 Emergency [facility] 1.2.204.065 [id number] Univers 20:52:00 23:41:00 Formerly [facility], [facility] 350.1.13.10 [place] [phone] [place] [address] [address] ([facility]) 2020-05-20 2020-05-20 Emergency Unknown, [place] 1.2.840.114 [id number] Univers 07:04:00 15:13:00 Attending CENTER 350.1.13.10 [place] [phone] [address] 2020-05-19 2020-05-20 [facility] 1.2.840.114 [id number] Univers 21:29:00 06:12:00 [facility] 350.1.13.10 [place] [phone] [place] [address] [address] ([facility]) 2020-05-18 2020-05-18 Patient Saira Goodman 1.2.840.114 [id number] Univers 10:18:59 11:28:59 Outreach E Recinos 350.1.13.10 [place] [id number] [address] 2020-05-18 2020-05-18 Outpatient R [facility] [id number] -[id number] Univers 09:30:00 09:30:00 [id number] ity [facility] 2020-05-18 2020-05-18 Patient Asia Emanueleddie 1.2.840.114 [id number] Univers 00:00:00 00:00:00 Outreach Mela Trinidady 350.1.13.10 [place] [phone] [address] 2020-05-17 2020-05-17 Outpatient R [facility] [id number] -[id number] Univers 10:00:00 10:00:00 [id number] ity [facility] 2020-05-17 2020-05-17 Patient Saira Goodman 1.2.840.114 [id number] Univers 00:00:00 00:00:00 Outreach E Recinos 350.1.13.10 [place] [id number] [address] 2020-05-17 2020-05-17 Patient Melanie Emanuel 1.2.840.114 [id number] Univers 00:00:00 00:00:00 Outreach Mela Trinidady 350.1.13.10 [place] [id number] [address] 2020-05-15 2020-05-15 Patient Melanie Emanuel 1.2.840.114 [id number] Univers 00:00:00 00:00:00 Outreach Mela Nolberto Recinos 350.1.13.10 [place] [phone] [address] 2020-05-14 2020-05-14 Transition Melanie Vallejo 1.2.840.114 [id number] Univers 00:00:00 00:00:00 of Care Emili Recinos 350.1.13.10 [place] [id number] [address] 2020-05-04 2020-05-12 [facility] Lora D Margarita 1.2. 840.114 [id number] Univers 21:09:00 14:03:00 Encounter Carol Ann Jasony 350.1.13.10 ity of Hospital 4.2.7.2.686 Javi as [phone] [address] 2020-05-10 2020-05-10 Patient Saira Goodman Melanie 1.2.840.114 [id number] Univers 00:00:00 00:00:00 Outreach E Recinos 350.1.13.10 [place] [id number] [address] 2020-05-09 2020-05-09 Transition Melanie Vallejo 1.2.840.114 [id number] Univers 00:00:00 00:00:00 of Care Emili Recinos 350.1.13.10 [place] [phone] [address] 2020-05-08 2020-05-08 Patient Saira Goodman Melanie 1.2.840.114 [id number] Univers 00:00:00 00:00:00 Outreach E Recinos 350.1.13.10 [place] [phone] [address] 2020-05-02 2020-05-03 Emergency Yarimi, [facility] 1.2.053.524 [id number] Univers 23:37:00 01:53:00 Joel S Johnna 350.1.13.10 it[place] [phone] [address] 2020-05-03 2020-05-03 Patient Saira Goodman Melanie 1.2.840.114 [id number] Univers 00:00:00 00:00:00 Outreach E Recinos 350.1.13.10 i [place] [id number] [facility] [address] 2020-05-03 2020-05-03 Transition Melanie Vallejo 1.2.840.114 [id number] Univers 00:00:00 00:00:00 of Care Emili Recinos 350.1.13.10 [place] [phone] [facility] [address] 2020-03-30 2020-05-02 Hospital LopezAlex sweeney 1.2.840.11 4 [id number] Univers 16:55:00 16:45:00 Encounter Irene VerdinrochelleDoigo 350.1.13. 10 ity of [facility] 4.2.7.2.686 [place] [phone] [facility] 0[address] 2020-04-06 2020-04-06 Anesthesia Dana Sampson 1.2.8 40.114 [id number] Univers 09:10:00 11:29:00 Cynthia Herring 350.1.1 3.10 ity of Hospital 4.2.7.2.686 [place] [phone] [facility] [address] 2020-03-29 2020-03-29 Melanie Bernstein 1.2.840.114 [id number] Univers 00:00:00 00:00:00 of Care Emili Recinos 350.1.13.10 [place] [id number] [facility] [address] 2020-03-25 2020-03-28 Hospital Bernardo Donnelly [facility] 1.2.840.114 [id number] Univers 19:12:00 18:43:00 [facility] 350.1.13.1 0 [place] [phone] [facility] 113 [address] ([facility]) 2020-03-07 2020-03-07 Melanie Bernstein 1.2.840.114 [id number] Univers 00:00:00 00:00:00 of Care Emili Recinos 350.1.13.10 [place] [id number] [facility] [address] 2020-03-02 2020-03-05 Hospital Sabi Begum [facility] 1.2.840.11 4 [id number] Univers 19:53:34 17:23:00 Encounter Eliu Goetz 350.1.13.10 ity of [place] 4.2.7.2.686 [place] [phone] [facility] 110 [address] ([facility]) 2020-02-29 2020-02-29 Transition Melanie Vallejo 1.2.840.114 [id number] Univers 00:00:00 00:00:00 of Care Emili Recinos 350.1.13.10 [place] [phone] [facility] [address] 2020-02-26 2020-02-27 Hospital Juventino Mccabe 1.2.840.11 4 [id number] Univers 04:55:41 19:20:00 Encounter Bia Pedro 350.1.13.10 ity of [facility] 4.2.7.2.686 [place] [phone] [facility] 090 [address] 2020-02-27 2020-02-27 Patient Saira Goodman Melanie 1.2.840.114 [id number] Univers 00:00:00 00:00:00 Outreach E Recinos 350.1.13.10 i [place] [id number] [facility] [address] 2020-02-25 2020-02-26 Emergency [facility] 1.2.149.551 [id number] Univers 21:25:58 03:55:00 [facility] 350.1.13.10 [place] [id number] [facility] 014 Branch ([facility]) 2020-02-24 2020-02-24 Outpatient JOE Perea [id number] [facility] 07:51:00 07:51:00 Mark 96 [facility] 2020-02-18 2020-02-18 Outpatient JOE Nova [id number] [facility] 00:26:00 00:26:00 Oladipo 05 [facility] 2020-02-07 2020-02-07 Transition Melanie Vallejo 1.2.840.114 [id number] Univers 00:00:00 00:00:00 of Care Emili Recinos 350.1.13.10 [place] [phone] [facility] [address] 2020-02-07 2020-02-07 Transition Melanie Vallejo 1.2.840.114 [id number] 00:00:00 00:00:00 of Care Emili Recinos 350.1.13.10 [place] 4.2.7.2.[id number] [facility] 2020-01-28 2020-02-05 Inpatient X SIMIN [facility] [id number] Univers 18:12:56 15:12:00 RADHESHYAM ity of [facility] 2020-01-28 2020-02-05 [facility] Bernardo Donnelly [facility] 1.2.840.114 [id number] Univers 18:12:56 15:12:00 Encounter Ahteetee, [facility] 350.1.13.10 ity of [place], Radheshyam [place] 4.2.7.2.686 [facility] [phone] [place] [address] [address] ([facility]) 2020-01-28 2020-02-05 [facility] Bernardo Donnelly [facility] 1.2.840.114 [id number] 18:12:56 15:12:00 Encounter Ahmed, [facility] 350.1.13.10 [place], Radheshyam [place] 4.2.7.2.686 Mobile [phone] [place] [address] ([facility]) 2020-01-24 2020-01-26 Emergency BegumSabi simons [facility] 1.2.840.1 14 [id number] Univers 18:46:34 19:35:00 Ahmed, [facility] 350.1.13.10 ity of [place], Radheshyam [place] 4.2.7.2.686 [facility] [id number] [facility] 109 Branch ([facility]) 2020-01-24 2020-01-26 Outpatient X SIMIN [facility] [id number] Univers 18:46:34 19:35:00 RADHESHYAM ity of [facility] 2020-01-24 2020-01-26 Emergency Sabi Begum [facility] 1.2.840.1 14 [id number] 18:46:34 19:35:00 [facility] 350.1.13.10 [place] 4.2.7.2.686 Mobile [phone] [facility] 109 ([facility]) 2020-01-05 2020-01-05 Out[facility] Pe[facility] [id number] [facility] 23:52:00 23:52:00 [facility] 2019-12-28 2019-12-28 Orders Doctor BERNARDO 1.2.840.114 [id number] Univers 00:00:00 00:00:00 Only Unassigned, [place] 350.1.13.10 ity of [facility] 4.2.7.2.686 Javi as [phone] [facility] 009 Branch 2019-12-28 2019-12-28 Orders Doctor BERNARDO 1.2.840.114 [id number] 00:00:00 00:00:00 Only Unassigned, [place] 350.1.13.10 [facility] 4.2.7.2.686 [id number] 009 2019-12-12 2019-12-12 Emergency Vale, [place] 1.2.226.134 [id number] Univers 21:02:30 23:20:00 Osmar Dao HAWKINS 350.1.13.10 [place] [phone] [facility] 014 Branch 2019-12-12 2019-12-12 Emergency Vale, [place] 1.2.631.966 [id number] 21:02:30 23:20:00 Osmar Dao CENTER 350.1.13.10 4.2.7.2.686 [id number] 014 2017-11-02 2017-11-02 Emergency E [facility] [id number] [address] 08:33:00 08:33:00 [facility] 2017-08-05 2017-08-05 Outpatient [facility] [id number] [place] 00:00:00 00:00:00 [facility] 2017-07-28 2017-07-28 Outpatient [facility] [id number] [place] 00:00:00 00:00:00 [facility] 2017-06-24 2017-06-24 Outpatient [facility] [id number] [place] 00:00:00 00:00:00 [facility] 2017-06-22 2017-06-22 Emergency [facility] [id number] [place] 21:37:29 21:37:29 Health 2017-06-22 2017-06-22 Emergency [facility] [id number] [place] 21:06:00 21:06:00 [facility] 2017-06-22 2017-06-22 Outpatient [facility] [id number] [place] 10:02:31 10:02:31 [facility] 2017-06-09 2017-06-09 Outpatient [facility] [id number] [place] 00:00:00 00:00:00 [facility] 2017-06-09 2017-06-09 Outpatient [facility] [id number] [place] 00:00:00 00:00:00 [facility] 2017-05-08 2017-05-08 Emergency [facility] [id number] [place] 01:04:44 01:04:44 [facility] 2017-05-05 2017-05-05 Emergency E [facility] [id number] [address] 08:11:00 08:11:00 [facility] 2017-04-15 2017-04-15 Emergency E [facility] [id number] [address] 09:53:00 09:53:00 [facility] 2017-04-14 2017-04-14 Outpatient [facility] [id number] [place] 13:31:02 13:31:02 Health Results Test Description Test [...] 31.6 g/dL 31.2-35 RDW-SD (test code = 98376-0) 56.7 fL 38.5-51.6 H RDW-CV (test code = 788-0) 17.4 % 12.1-15.4 H PLT (test code = 777-3) See_Comment [Au tomated message] The system which [employer] nerated this result transmit dain reference range: 150 - 32 8 10*3/?L. The reference range was not used to interpret th is result as normal/abnormal . MPV (test code = 20610-7) 9.5 fL 9.8-13 L NRBC/100 WBC (test code = See_Comment [ Automated message] The [id number]) system which [employer] nerated this result transmit dain reference range: 0.0 - 10 .0 /100 WBCs. The reference r meredith was not used to interpr et this result as normal/abnor mal. NRBC x10^3 (test code = See_Comment [Au tomated message] The 7363403031) system which [employer] nerated this result transmit dain reference range: 10*3/?L. The reference range was not u sed to interpret this result as normal/abnormal . SEG % (test code = 93194-5) 56 % 33-76 LYMPH % (test code = 28 % 14-54 82804-7) MONO % (test code = 81147-1) 12 % 0-4 H EOS % (test code = 47387-8) 4 % 0-3 H ANC (test code = 753-4) 4.72 10*3/uL 1.99-6.95 PLT ESTIMATE (test code = Normal Normal 9317-9) Lab Interpretation (test Abnormal code = 46715-6) [facility] (53988)2022-04-10 04:19:15 Test Item Value Reference Range Interpretation Comments NA (test code = 137 mmol/L 135-145 9453805214) K (test code = 4.6 mmol/L 3.5-5 0592520138) CL (test code = 108 mmol/L 98-108 8707056912) CO2 TOTAL (test code = 22 mmol/L 23-31 L 2339389748) AGAP (test code = 2-16 9464146951) BUN (test code = 16 mg/dL 7-23 4472299020) GLUCOSE (test code = 96 mg/dL 70-110 5751249582) CREATININE (test code = 1.35 mg/dL 0.6-1.25 H 8700462133) TOTAL BILI (test code = 0.4 mg/dL 0.1-1.1 4117123337) CALCIUM (test code = 9.1 mg/dL 8.6-10.6 1706485356) T PROTEIN (test code = 5.5 g/dL 6.3-8.2 L 8142171192) ALBUMIN (test code = 3.9 g/dL 3.5-5 4067908223) ALK PHOS (test code = 58 U/L 34-122 7532753611) ALTv (test code = 41 U/L 5-50 1742-6) AST(SGOT) (test code = 42 U/L 13-40 H 9251359140) eGFR (test code = mL/min/1.73m2 5328077358) GILBERTO (test code = GILBERTO) Association of [...] tests). Lab Interpretation Abnormal (test code = 26148-3) [facility]22-[facility]18 03:33:31 Test Item Value Reference Range Interpretation Comments LIPASE (test code = 1120563722) 90 U/L 0-220 Lab Interpretation (test code = Normal 12127-9) [facility]2022-08-16 12:00:33 Test Item Value Reference Range Interpretation Comments MAGNESIUM (test code = 4807233220) 1.5 mg/dL 1.7-2.4 L Lab Interpretation (test code = Abnormal 98809-9) [facility]OLIC PAN[facility] (NA, K, CL, CO2, GLUCOSE, BUN, CREATININE, CA)2022-04-08 11:12:32 Test Item Value Reference Range Interpretation Comments NA (test code = 136 mmol/L 135-145 8410113208) K (test code = 4.1 mmol/L 3.5-5 7663053287) CL (test code = 108 mmol/L 98-108 2266457847) CO2 TOTAL (test code = 25 mmol/L 23-31 2284876415) AGAP (test code = 2-16 3334148375) BUN (test code = 10 mg/dL 7-23 6830952984) GLUCOSE (test code = 82 mg/dL 70-110 5024721133) CREATININE (test code = 1.10 mg/dL 0.6-1.25 2035147606) CALCIUM (test code = 8.3 mg/dL 8.6-10.6 L 7828147815) eGFR (test code = mL/min/1.73m2 6556465746) GILBERTO (test code = GILBERTO) Association of [...] tests). Lab Interpretation Abnormal (test code = 31094-1) [facility]2022-08-16 11:12:32 Test Item Value Reference Range Interpretation Comments PHOSPHORUS (test code = 6938242104) 2.5 mg/dL 2.5-5 Lab Interpretation (test code = Normal 95736-8) [facility] WITH [id number] 10:47:27 Test Item Value Reference Range Interpretation [...] (test code = 54.4 fL 38.5-51.6 H 42009-4) RDW-CV (test code = 16.9 % 12.1-15.4 H 788-0) PLT (test code = See_Comment [Automated 777-3) message] The sy stem which generated this result transmitted reference range : 150 - 328 10*3/ ?L. The reference r meredith was not used to interpret this result as normal/abnormal . MPV (test code = 9.7 fL 9.8-13 L 35705-6) NRBC/100 WBC (test See_Comment [Automat ed code = 7466395296) message] The system which generated this result transmitted reference range : 0.0 - 10.0 /100 WBCs. The refer ence range was not u sed to interpret th is result as normal/abnormal . NRBC x10^3 (test code See_Comment [Auto mated = 0051297405) message] The s ystem which generated this result transmitted reference range : 10*3/?L. The reference range was not used to interpret this result as normal/abnormal . GRAN MAT (NEUT) % 54.7 % (test code = 770-8) IMM GRAN % (test code 0.40 % = 9273819424) LYMPH % (test code = 33.8 % 736-9) MONO % (test code = 8.7 % 5905-5) EOS % (test code = 2.0 % 713-8) BASO % (test code = 0.4 % 706-2) GRAN MAT x10^3(ANC) 2.95 10*3/uL 1.99-6.95 (test code = 3805107084) IMM GRAN x10^3 (test 0-0.06 code = 1370257038) LYMPH x10^3 (test code 1.82 10*3/uL 1.09-3.23 = 731-0) MONO x10^3 (test code 0.47 10*3/uL 0.36-1.02 = 742-7) EOS x10^3 (test code = 0.11 10*3/uL 0.06-0.53 711-2) BASO x10^3 (test code 0.01-0.09 = 704-7) Lab Interpretation Abnormal (test code = 66071-3) [facility] METABOLIC PANEL (NA, K, CL, CO2, GLUCOSE, BUN, CREATININE, CA)2022-04-06 09:47:17 Test Item Value Reference Range Interpretation Comments NA (test code = 134 mmol/L 135-145 L 5235623276) K (test code = 4.2 mmol/L 3.5-5 Slight 0639308099) hemolysis CL (test code = 114 mmol/L 98-108 H 9389209558) CO2 TOTAL (test code 16 mmol/L 23-31 L = 2239175592) AGAP (test code = 2-16 5615392833) BUN (test code = 16 mg/dL 7-23 Slight 1650308149) hemolysis GLUCOSE (test code = 79 mg/dL 70-110 9383969773) CREATININE (test code 1.00 mg/dL 0.6-1.25 = 5378556788) CALCIUM (test code = 7.5 mg/dL 8.6-10.6 L 0633807931) eGFR (test code = mL/min/1.73m2 6495623276) GILBERTO (test code = GILBERTO) Association of [...] tests). Lab Interpretation Abnormal (test code = 53888-8) [facility]2022-08-14 09:47:17 Test Item Value Reference Range Interpretation Comments MAGNESIUM (test code = 4124574334) 1.2 mg/dL 1.7-2.4 L Lab Interpretation (test code = Abnormal 00634-6) [facility] Area[facility] Acid Whole [id number] 09:16:49 Test Item Value Reference Range Interpretation Comments LACTIC ACID (test code = 1.35 mmol/L 0.5-2.2 4672063507) Lab Interpretation (test code = Normal 37366-3) [facility] WITH [id number] 09:13:32 Test Item Value Reference Range Interpretation [...] (test code = 52.4 fL 38.5-51.6 H 67549-0) RDW-CV (test code = 16.6 % 12.1-15.4 H 788-0) PLT (test code = See_Comment [Automated 777-3) message] The sy stem which generated this result transmitted reference range : 150 - 328 10*3/ ?L. The reference r meredith was not used to interpret this result as normal/abnormal . MPV (test code = 10.0 fL 9.8-13 52243-4) NRBC/100 WBC (test See_Comment [Automat ed code = 0182391389) message] The system which generated this result transmitted reference range : 0.0 - 10.0 /100 WBCs. The refer ence range was not u sed to interpret th is result as normal/abnormal . NRBC x10^3 (test code See_Comment [Auto mated = 4497355286) message] The s ystem which generated this result transmitted reference range : 10*3/?L. The reference range was not used to interpret this result as normal/abnormal . GRAN MAT (NEUT) % 48.6 % (test code = 770-8) IMM GRAN % (test code 0.20 % = 8152041805) LYMPH % (test code = 39.4 % 736-9) MONO % (test code = 9.3 % 5905-5) EOS % (test code = 1.9 % 713-8) BASO % (test code = 0.6 % 706-2) GRAN MAT x10^3(ANC) 2.36 10*3/uL 1.99-6.95 (test code = 9935224456) IMM GRAN x10^3 (test 0-0.06 code = 6442283998) LYMPH x10^3 (test code 1.91 10*3/uL 1.09-3.23 = 731-0) MONO x10^3 (test code 0.45 10*3/uL 0.36-1.02 = 742-7) EOS x10^3 (test code = 0.09 10*3/uL 0.06-0.53 711-2) BASO x10^3 (test code 0.03 10*3/uL 0.01-0.09 = 704-7) Lab Interpretation Abnormal (test code = 59083-2) [facility]2022-08-12 07:34:48 Test Item Value Reference Range Interpretation Comments MAGNESIUM (test code = 7382079638) 1.8 mg/dL 1.7-2.4 Lab Interpretation (test code = Normal 85522-9) [facility] CARE VENOUS BLOOD [id number] 18:40:18 Test Item Value Reference Range Interpretation Comments PH (test code = 7.32-7.42 L 0143955163) PCO2 PANKAJ (test code = See_Comment [Auto mated message] 6578238328) The system [email or web address] generated this result transmitted ref erence range: 41 - 51 mmHg. The reference r meredith was not used to interpret this result as normal/abnor mal. PO2 PANKAJ (test code = See_Comment L [Autom ated message] 0278634814) The system [email or web address] generated this result transmitted ref erence range: 25 - 40 mmHg. The reference r meredith was not used to interpret this result as normal/abnor mal. HCO3 PANKAJ (test code = See_Comment L [Auto mated message] 0870771439) The system [email or web address] generated this result transmitted ref erence range: 24 - 28 mEq/L. The reference r meredith was not used to interpret this result as normal/abnor mal. AC VBE(BEAKER) (test mEq/L code = 3143579301) Lab Interpretation (test Abnormal code = 07838-4) [facility] METABOLIC PANEL (NA, K, CL, CO2, GLUCOSE, BUN, CREATININE, CA)2022-04-03 18:33:26 Test Item Value Reference Range Interpretation Comments NA (test code = 129 mmol/L 135-145 L 5757360279) K (test code = 3.3 mmol/L 3.5-5 L 3505962026) CL (test code = 100 mmol/L 98-108 6115639522) CO2 TOTAL (test code = 19 mmol/L 23-31 L 2397902335) AGAP (test code = 2-16 0062594659) BUN (test code = 49 mg/dL 7-23 H 6975237928) GLUCOSE (test code = 75 mg/dL 70-110 3627493058) CREATININE (test code = 2.55 mg/dL 0.6-1.25 H 3558825116) CALCIUM (test code = 8.6 mg/dL 8.6-10.6 4213047992) eGFR (test code = mL/min/1.73m2 0216231287) GILBERTO (test code = GILBERTO) Association of [...] tests). Lab Interpretation Abnormal (test code = 60819-8) [facility]MOL[facility], SERUM OR [id number] 15:45:31 Test Item Value Reference Range Interpretation Comments OSMOLALITY (test code = See_Comment [Au tomated message] 6422-2) The system whic h generated this result transmitted ref erence range: 278 - 30 5 mOsm/kg. The re ference range was not u sed to interpret this result as normal/abnor mal. Lab Interpretation (test Normal code = 58915-6) [facility] with [id number] 11:27:34 Test Item Value Reference Range Interpretation [...] RDW-SD (test code = 48.7 fL 38.5-51.6 20987-0) RDW-CV (test code = 15.9 % 12.1-15.4 H 788-0) PLT (test code = See_Comment [Automated 777-3) message] The sy stem which generated this result transmitted reference range : 150 - 328 10*3/ ?L. The reference r meredith was not used to interpret this result as normal/abnormal . MPV (test code = 9.4 fL 9.8-13 L 30158-8) NRBC/100 WBC (test See_Comment [Automat ed code = [id number]) message] The system which generated this result transmitted reference range : 0.0 - 10.0 /100 WBCs. The refer ence range was not u sed to interpret th is result as normal/abnormal . NRBC x10^3 (test code See_Comment [Auto mated = [id number]) message] The s ystem which generated this result transmitted reference range : 10*3/?L. The reference range was not used to interpret this result as normal/abnormal . GRAN MAT (NEUT) % 56.0 % (test code = 770-8) IMM GRAN % (test code 0.50 % = [id number]) LYMPH % (test code = 33.2 % 736-9) MONO % (test code = 8.6 % 5905-5) EOS % (test code = 1.1 % 713-8) BASO % (test code = 0.6 % 706-2) GRAN MAT x10^3(ANC) 3.64 10*3/uL 1.99-6.95 (test code = 0341519003) IMM GRAN x10^3 (test 0.03 10*3/uL 0-0.06 code = [id number]) LYMPH x10^3 (test code 2.16 10*3/uL 1.09-3.23 = 731-0) MONO x10^3 (test code 0.56 10*3/uL 0.36-1.02 = 742-7) EOS x10^3 (test code = 0.07 10*3/uL 0.06-0.53 711-2) BASO x10^3 (test code 0.04 10*3/uL 0.01-0.09 = 704-7) Lab Interpretation Abnormal (test code = 03110-9) [facility] Metabolic Panel (NA, K, CL, CO2, GLUCOSE, BUN, CREATININE, CA)2022-04-03 10:08:59 Test Item Value Reference Range Interpretation Comments NA (test code = 125 mmol/L 135-145 L [id number]) K (test code = 3.7 mmol/L 3.5-5 5593639544) CL (test code = 96 mmol/L 98-108 L 6920886903) CO2 TOTAL (test code = 15 mmol/L 23-31 L 7250693047) AGAP (test code = 2-16 2378690033) BUN (test code = 50 mg/dL 7-23 H 6060842599) GLUCOSE (test code = 86 mg/dL 70-110 7095609751) CREATININE (test code = 3.86 mg/dL 0.6-1.25 H 4608780129) CALCIUM (test code = 8.6 mg/dL 8.6-10.6 2920374904) eGFR (test code = mL/min/1.73m2 9653721534) [facility] (test code = GILBERTO) Association of [...] tests). Lab Interpretation Abnormal (test code = 14580-2) [facility] BranchL[facility] Whole [id number] 04:09:02 Test Item Value Reference Range Interpretation Comments LACTIC ACID (test code = 1.54 mmol/L 0.5-2.2 7448758134) Lab Interpretation (test code = Normal 77474-2) [facility] [id number] 00:25:08 Test Item Value Reference Range Interpretation Comments LACTIC ACID (test code = 2.50 mmol/L 0.5-2.2 H 8812084281) Lab Interpretation (test code = Abnormal 76002-6) [facility] WITH [id number] 20:19:45 Test Item Value Reference Range Interpretation [...] RDW-SD (test code = 49.8 fL 38.5-51.6 33663-9) RDW-CV (test code = 16.4 % 12.1-15.4 H 788-0) PLT (test code = See_Comment H [Automated 777-3) message] The system which generated this result transmit dain reference range : 150 - 328 10*3/ ?L. The reference range was not u sed to interpret th is result as normal/abnormal . MPV (test code = 10.7 fL 9.8-13 74224-1) NRBC/100 WBC (test See_Comment [Automat ed code = 0297732668) message] The system which generated this result transmit dain reference range : 0.0 - 10.0 /100 WBCs. The reference range was not used to interpret this result as normal/abnormal . NRBC x10^3 (test code See_Comment [Auto mated = 0204368859) message] The system which generated this result transmit dain reference range : 10*3/?L. The reference range was not used to interpret this result as normal/abnormal . GRAN MAT (NEUT) % 73.4 % (test code = 770-8) IMM GRAN % (test code 0.60 % = 4940718398) LYMPH % (test code = 17.2 % 736-9) MONO % (test code = 8.2 % 5905-5) EOS % (test code = 0.2 % 713-8) BASO % (test code = 0.4 % 706-2) GRAN MAT x10^3(ANC) 10.17 10*3/uL 1.99-6.95 H (test code = 0773247286) IMM GRAN x10^3 (test 0.09 10*3/uL 0-0.06 H code = 1798854840) LYMPH x10^3 (test code 2.38 10*3/uL 1.09-3.23 = 731-0) MONO x10^3 (test code 1.13 10*3/uL 0.36-1.02 H = 742-7) EOS x10^3 (test code = 0.03 10*3/uL 0.06-0.53 L 711-2) BASO x10^3 (test code 0.05 10*3/uL 0.01-0.09 = 704-7) Lab Interpretation Abnormal (test code = 29628-2) [facility] W/AUTO [id number] 00:06:00 Test Item Value Reference Range Interpretation [...] = MX#) 0.5 k/mm3 0.1-0.8 N TROPONIN-I [id number] 15:07:00 Test Item Value Reference Range Interpretation Comments TROPONIN-I RAPID 0.00 ng/mL 0.00-0.08 N Performed b y certified (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 BASIC METABOLIC [id number] 14:56:00 Test Item Value Reference Range Interpretation [...] MG/DL 70-110 N - XR CHEST 1 [id number] 00:00:00 [facility] JO[facility] : 1970 Sex: M FAX: Sabi Urias MD [phone] [place]: [place] St: REG Name: JOSEPHHOANG FSED : 1970 Age/S: 52/M [address] [facility] Unit #: [id number] Loc: [place] [address] Phys: Sabi Urias MD Acct: [id number] DisDate: Status: REG ER PHONE #: Exam Date: 03/29/2022 1502 FAX #: Reason: Weakness EXAMS: CPT CODE: [id number] XR CHEST 1 V 16193 PROCEDURE INFORMATION: Exam: XR Chest Exam date and time: 03/29/2022 2:31 PM Age: 52 years old Clinical indication: Other: Weakness; () TECHNIQUE: Imaging protocol: Radiologicexam of the chest. Views: 1 view. COMPARISON: CR XR CHEST 1V 06/27/2021 3:37 PM FINDINGS: Lungs: The lungs appear emphysematous. No appreciable pneumonia or edema. Pleural spaces: No appreciable pleuraleffusion or pneumothorax. Heart/Mediastinum: Cardiac silhouette within normal limits. Diaphragm: Moderate elevation left hemidiaphragm, unchanged. Bones/joints: Negative acute. IMPRESSION: COPD. at 1530 Reported and signed by: Barrett Bailey M.D. CC: Sabi Urias MD Technologist: Avtar Lang RT(R)(CT) Trnscrd Date/Time/By: 03/29/2022 (1530) : By: GarettTTV Orig Print D/T: S: 03/29/2022 (1531) PAGE 1 Signed ReportHEPATIC FUNCTION [id number] 06:45:03 Test Item Value Reference Range Interpretation [...] (test code = 13 U/L 6-55 347) Factory Engineer ID - ERWIN WBASIC METABOLIC [id number] 06:45:02 Test Item Value Reference Range Interpretation [...] S NOT APPLICABLE FOR DIALYSIS PATIEN TS. Factory Engineer ID - ERWIN WCBC W/PLT COUNT & AUTO [id number] 06:26:54 Test Item Value Reference Range Interpretation [...] (BEAKER) (test code = 2801) U/S, RENAL, [id number] 19:23:00Reason for exam:->acute kidney injury [facility] 1970 Sex: MFINAL [...] Amberly Prater MDReport Verified Date/Time: 03/06/2022 19:23:41 Electronically signed by: AMBERLY PRATER MD on 207:23 PM SARS-CoV2/RT-PCR (Asymptomatic ONLY)2022-03-06 19:17:07 Test Item Value Reference Interpretation Comments Range SARS-COV2/RT-PCR Negative Negative The SARS-Co V-2 (test code = target nucleic 27877-6) acids are not detected in thi s [...] revoked sooner. Fact Sheet for Healthcare Providers: https://www.[employer]/Documents/Xp ert%20Xpress%20SAR S%20CoV-2/Fact%20S heets/302-5122%20S ARS-COV-2%20HEALTH CARE%20PROVIDERS%2 0FACT%20SHEET.pdf Fact Sheet for Healthcare Patients: https://www.[employer]/Documents/Xp ert%20Xpress%20SAR S%20CoV-2/Fact%20S heets/3023801%20S ARS-COV-2%20PATIEN T%20FACT%20SHEET.p df Lab Interpretation Normal (test code = 15374-3) [facility]22-[facility]-06 19:17:07 Test Item Value Reference Interpretation Comments Range SARS-COV2/RT-PCR Negative Negative The SARS-Co V-2 (test code = target nucleic 36825-2) acids are not detected in thi s [...] revoked sooner. Fact Sheet for Healthcare Providers: https://www.[employer]/Documents/Xp ert%20Xpress%20SAR S%20CoV-2/Fact%20S heets/302-3802%20S ARS-COV-2%20HEALTH CARE%20PROVIDERS%2 0FACT%20SHEET.pdf Fact Sheet for Healthcare Patients: https://www.[employer]/Documents/Xp ert%20Xpress%20SAR S%20CoV-2/Fact%20S heets/302-3801%20S ARS-COV-2%20PATIEN T%20FACT%20SHEET.p df Lab Interpretation Normal (test code = 29420-6) [facility]2022-03-06 19:17:07 Test Item Value Reference Interpretation Comments Range SARS-COV2/RT-PCR Negative Negative The SARS-Co V-2 (test code = target nucleic 68303-0) acids are not detected in thi s [...] revoked sooner. Fact Sheet for Healthcare Providers: https://www.[employer]/Documents/Xp ert%20Xpress%20SAR S%20CoV-2/Fact%20S heets/302-3802%20S ARS-COV-2%20HEALTH CARE%20PROVIDERS%2 0FACT%20SHEET.pdf Fact Sheet for Healthcare Patients: https://www.[employer]/Documents/Xp ert%20Xpress%20SAR S%20CoV-2/Fact%20S heets/302-3801%20S ARS-COV-2%20PATIEN T%20FACT%20SHEET.p df Lab Interpretation Normal (test code = 14687-9) [facility]2022-03-06 19:17:07 Test Item Value Reference Interpretation Comments Range SARS-COV2/RT-PCR Negative Negative The SARS-Co V-2 (test code = target nucleic 55399-5) acids are not detected in thi s [...] rapid, real-selena e RT-PCR test intended for e qualitative detection of nucleic acid fr [...] revoked sooner. Fact Sheet for Healthcare Providers: https://www.[employer]/Documents/Xp ert%20Xpress%20SAR S%20CoV-2/Fact%20S heets/3023802%20S ARS-COV-2%20HEALTH CARE%20PROVIDERS%2 0FACT%20SHEET.pdf Fact Sheet for Healthcare Patients: https://www.[employer]/Documents/Xp ert%20Xpress%20SAR S%20CoV-2/Fact%20S heets/302-3801%20S ARS-COV-2%20PATIEN T%20FACT%20SHEET.p df Lab Interpretation Normal (test code = 92192-2) [facility])2022-03-06 19:17:07 Test Item Value Reference Range Interpretation Comments SARS-COV2/RT-PCR Negative Negative The SARS-Co V-2 target (test code = nucleic acids a re not 6275862) detected in thi s specimen. Negative result [...] individuals suspected of CO VID-[facility]. This test has been authorized [...] revoked sooner. Fact Sheet for Healthcare Providers: https://www.[employer] om/Documents/Xpert%20Xpress%20SARS%20CoV-2/Fact%20Sheets/302-3802%83SDAJ-LDO-0%2 0HEALTHCARE%20PROVIDERS%20FACT%20SHEET.pdf Fact Sheet for Healthcare Patients: https://www.[employer]/Documents/Xpert%20X press%20SARS%20CoV-2/Fact%20Sheets/302-3801%00TIMQ-TUJ-0%20PATIENT%20FACT%20SHEE T.pdfCREATINE KINASE (CK)2022-03-06 16:19:14 Test Item Value Reference Range Interpretation Comments CREATINE KINASE TOTAL (BEAKER) (test 141 U/L 29-200 code = 380) Factory Engineer ID - BST4, [id number] 15:13:16 Test Item Value Reference Range Interpretation Comments FREE T4 (BEAKER) (test code = 655) 0.95 ng/dL 0.70-1.48 Factory Engineer ID - BSTSH/FREE T4 IF [id number] 15:13:16 Test Item Value Reference Range Interpretation Comments THYROID STIMULATING HORMONE 2.060 uIU/mL 0.350-4.940 (GILMAR) (test code = 772) Factory Engineer ID - BSB-TYPE NATRIURETIC FACTOR (BNP)2022-03-06 14:26:30 Test Item Value Reference Range Interpretation Comments B-TYPE NATRIURETIC PEPTIDE (GILMAR) < pg/mL 0-100 (test code = 700) Factory Engineer ID - JSHIGH SENSITIVITY TROPONIN [id number] 14:14:54 Test Item Value Reference Range Interpretation Comments HIGH SENSITIVITY < pg/ml See_Comment [Automated message] TROPONIN I (test code = The system which 7798534) generated this result transmitted ref erence range: <=35. Th e reference range was not used to interpr et this result as normal/abnormal . Factory Engineer ID - JSThe SUPERVISOR [employer] STAT High Sensitivity Troponin-I results should be used in conjunctionwith other diagnostic information such as ECG, clinical observations and information, and patient symptoms to aid in the diagnosis of AL.RAD, CHEST, 1 VIEW, NON [id number] 14:10:00Reason for exam:- >NEUROLOGIC PROBLEMShould this be performed at the bedside?->Yes [facility] 1970 Sex: MFINAL REPORT Chest, 1 view, 03/06/2022 2:03 PM. History: Neurologic problem. Comparison: 03/28/2019. Discussion: The cardiomediastinal silhouette and pulmonary vasculature are within normal limits for a portable exam. The lungs are clear without evidence of consolidation or effusion. The soft tissues and osseous structures are intact. IMPRESSION: No acute cardiopulmonary abnormality. Signed: Alona Brown Verified Date/Time: 03/06/2022 14:10:44 REHENSIVE METABOLIC [id number] 14:08:22 Test Item Value Reference Range Interpretation [...] S NOT APPLICABLE FOR DIALYSIS PATIEN TS. Factory Engineer ID - [id number] 14:07:49 Test Item Value Reference Range Interpretation Comments MAGNESIUM (BEAKER) (test code = 2.0 mg/dL 1.6-2.6 627) Factory Engineer ID - [id number] 14:07:49 Test Item Value Reference Range Interpretation Comments PHOSPHORUS (BEAKER) (test code = 5.6 mg/dL 2.3-4.7 H 604) Factory Engineer ID - JSLACTIC ACID, [id number] 13:51:04 Test Item Value Reference Range Interpretation Comments LACTATE BLOOD VENOUS 1.32 mmol/L 0.50-2.20 Specime n slightly (2) (BEAKER) (test hemolyzed code = 8112) Factory Engineer ID - JSCBC W/PLT COUNT & AUTO DEMYNYCKJGDR0681-22-06 13:47:24 Test Item Value Reference Range Interpretation [...] (BEAKER) (test code = 2801) Coronavirus, CoVID-19, [id number] 01:07:20 Test Item Value Reference Range Interpretation Comments COVID-19 (SARS-COV-2) Not Detected Not Detected INTERP RETATION: No (test code = 24548-3) detect able levels of SARS-CoV-2 Coronavirus (COVID-19) [...] SARS-CoV-2 mole cular diagnostic assa y utilizes Cath Laboratory Technician Mediated Amplification ( TMA) technology to r apidly detect the SARS -CoV-2 (COVID-19) viru s from respiratory adriana ples. In accordance w ith the FDA's kamran nce document "Polic y for Diagnostic Test s for Coronavirus Disease-2019 du ring the Public Heal Emergency", thi s test was developed, and its performance characteristics were verified by the [facility] molecular diagn ostics laboratory and is authorized for clinical diagno stic use. This labor atory is certified un estevan the Clinical Laboratory Improvement Amendments (CLI A) as qualified to pe rform high complexity clinical labora tory testing. Lab Interpretation Normal (test code = 61806-6) [facility]ard[facility], CoVID-19, [id number] 01:07:20 Test Item Value Reference Range Interpretation Comments COVID-19 (SARS-COV-2) Not Detected Not Detected INTERP RETATION: No (test code = 61586-3) detect able levels of SARS-CoV-2 Coronavirus (COVID-19) [...] SARS-CoV-2 mole cular diagnostic assa y utilizes Cath Laboratory Technician Mediated Amplification ( TMA) technology to r apidly detect the SARS -CoV-2 (COVID-19) viru s from respiratory adriana ples. In accordance w ith the FDA's kamran nce document "Polic y for Diagnostic Test s for Coronavirus Disease-[address] [facility] ([place] the [facility] Emergency", thi s test was developed, and its performance characteristics were verified by the [facility] molecular diagn ostics laboratory and is authorized for clinical diagno stic use. This labor atory is certified un estevan the Clinical Laboratory Improvement Amendments (CLI A) as qualified to pe rform high complexity clinical labora tory testing. Lab Interpretation Normal (test code = 31225-5) Maged ChauCoronavirus, CoVID-19, [id number] 01:07:20 Test Item Value Reference Range Interpretation Comments COVID-19 (SARS-COV-2) Not Detected Not Detected INTERP RETATION: No (test code = 55941-2) detect able levels of SARS-CoV-2 Coronavirus (COVID-19) [...] SARS-CoV-2 mole cular diagnostic assa y utilizes Cath Laboratory Technician Mediated Amplification ( TMA) technology to r apidly detect the SARS -CoV-2 (COVID-19) viru s from respiratory adriana ples. In accordance w ith the FDA's kamran nce document "Polic y for Diagnostic Test s for Coronavirus Disease-[address] [facility] the [facility] Emergency", thi s test was developed, and its performance characteristics were verified by the [facility] molecular diagn ostics laboratory and is authorized for clinical diagno stic use. This labor atory is certified un estevan the Clinical Laboratory Improvement Amendments (CLI A) as qualified to pe rform high complexity clinical labora tory testing. Lab Interpretation Normal (test code = 18518-0) [facility]-AvQ-9 ORF1ab Resp Ql OLENA+xnjwf3082-30-79 01:07:20 Test Item Value Reference Range Interpretation Comments Hospitalized? (test No code = 88105-6) ICU? (test code = No 20120-5) Symptomatic as No defined by CDC? (test code = 41372-4) Employed in No Healthcare? (test code = 42313-7) Resident in a No congregate care setting (including nursing homes, residential care for people with intellectual and developmental disabilities, psychiatric treatment facilities, group homes, board and care homes, homeless residential, foster care or other): (test code = 61781-2) SARS-CoV-2 ORF1ab NOT DETECTED Not Detected INTERPRETA TION: No Resp Ql OLENA+probe detectable levels of (test code = SARS-CoV-2 81638-4) Coronavirus (COVID-19) were present in this patient's [...] SARS-CoV-2 mole cular diagnostic assa y utilizes Cath Laboratory Technician Mediated Amplification ( TMA) technology to r apidly detect the SARS -CoV-2 (COVID-19) viru s from respiratory adriana ples. In accordance with\\XC2A0\\the FDA's guidance docume nt "Policy for Diagnostic Test s for Coronavirus Disease-[address] [facility] the [facility] Emergency", amalia s test was developed, and its performance characteristics were verified by the [facility] molecular diagn ostics laboratory and is authorized for clinical diagno stic use. \\XC2A0\\Thi s laboratory is certified under the Clinical Labora tory Improvement Amendments (CLI A) as qualified to pe rform high complexity clinical labora tory testing. POCT GLUCOSE POC docked [id number] 08:09:01 Test Item Value Reference Range Interpretation Comments Glucose POC (test code = 00053551) 85 mg/dL 74-106 Lab Interpretation (test code = Normal 71805-2) [facility] GLUCOSE POC docked [id number] 08:09:01 Test Item Value Reference Range Interpretation Comments Glucose POC (test code = 54145039) 85 mg/dL 74-106 Lab Interpretation (test code = Normal 70548-5) [facility] GLUCOSE POC docked [id number] 08:09:01 Test Item Value Reference Range Interpretation Comments Glucose POC (test code = 85228953) 85 mg/dL 74-106 Lab Interpretation (test code = Normal 77048-1) [facility] HealthMtbzihQAJM-IqJ-5 ORF1ab Resp Ql OLENA+auogj4216-48-68 23:25:40 Test Item Value Reference Range Interpretation Comments Hospitalized? (test No code = 18977-9) ICU? (test code = No 19452-5) Symptomatic as No defined by CDC? (test code = 69796-8) Employed in No Healthcare? (test code = 68078-3) Resident in a No congregate care setting (including nursing homes, residential care for people with intellectual and developmental disabilities, psychiatric treatment facilities, group homes, board and care homes, homeless residential, foster care or other): (test code = 81812-7) SARS-CoV-2 ORF1ab NOT DETECTED Not Detected INTERPRETA TION: No Resp Ql OLENA+probe detectable levels of (test code = SARS-CoV-2 48078-1) Coronavirus (COVID-19) were present in this patient's [...] SARS-CoV-2 mole cular diagnostic assa y utilizes Cath Laboratory Technician Mediated Amplification ( TMA) technology to r apidly detect the SARS -CoV-2 (COVID-19) viru s from respiratory adriana ples. In accordance with\\XC2A0\\the FDA's guidance docume nt "Policy for Diagnostic Test s for Coronavirus Disease-2019 du ring the Public [facility] Emergency", amalia s test was developed, and its performance characteristics were verified by the [facility] molecular diagn ostics laboratory and is authorized for clinical diagno stic use. \\XC2A0\\Thi s laboratory is certified under the Clinical Labora tory Improvement Amendments (CLI A) as qualified to pe rform high complexity clinical labora tory testing. 12 Lead [id number] 15:46:1012 LEAD EKG FOR [facility] Test Date: 0154-04-04Lwg Name: DORA JOSEPH Department: 5ECIPatient ID: [id number] Room: Gender: M Last Greaser: [id number]: 1970 Requested By: SUSHIL Cho Number: [id number] Reading MD: Rene Patterson MeasurementsIntervals Clyde Rate: 61 P: 72PR: 152 QRS: 55QRSD: 106 T: 63QT: 398 QTc: 400 Interpretive StatementsSINUS RHYTHMPOSSIBLE RIGHT VENTRICULAR CONDUCTION DELAY [RSR (QR) IN V1/V2]Electronically Signed On 01-22-2022 8:30:45 CDT by Rene Valle Hsgxps48 Lead [id number] 15:46:1012 LEAD EKG FOR [facility] Test Date: 9644-26-06Aci Name: DORA JOSEPH Department: 5ECIPatient ID: [id number] Room: Gender: M Last Greaser: [id number]: 1970 Requested By: SUSHIL Cho Number: [id number] Reading MD: Rene Patterson MeasurementsIntervals Clyde Rate: 61 P: 72PR: 152 QRS: 55QRSD: 106 T: 63QT: 398 QTc: 400 Interpretive StatementsSINUS RHYTHMPOSSIBLE RIGHT VENTRICULAR CONDUCTION DELAY [RSR (QR) IN V1/V2]Electronically Signed On 01-22-2022 8:30:45 CDT by Rene Valle Sljrhp84 Lead [id number] 15:46:1012 LEAD EKG FOR [facility] Test Date: 4872-65-97Nid Name: DORA JOSEPH Department: 5ECIPatient ID: [id number] Room: Gender: M Last Greaser: [id number]: 1970 Requested By: SUSHIL Cho Number: [id number] Reading MD: Rene Patterson MeasurementsIntervals Clyde Rate: 61 P: 72PR: 152 QRS: 55QRSD: 106 T: 63QT: 398 QTc: 400 Interpretive StatementsSINUS RHYTHMPOSSIBLE RIGHT VENTRI CULAR CONDUCTION DELAY [RSR (QR) IN V1/V2]Electronically Signed On 01-22-2022 8:30:45 CDT by [facility]ene Valle [facility] Ab+HIV1 p24 Ag SerPl Ql IA 2022-01-18 07:02:58 Test Item Value Reference Range Interpretation Comments HIV 1+2 Ab+HIV1 p24 Ag SerPl Ql IA NEGATIVE Negative (test code = 12891-6) [id number] 21:23:2512 LEAD EKG FOR [facility] Test Date: 9944-64-69Euq Name: DORA JOSEPH Department: 5520Patient ID: [id number] Room: 8D80Uewyqq: M Last Greaser: : 1970 Requested By: KARIN BASSETT AOrder Number: [id number] Reading MD: Chiara Calles MeasurementsIntervals Clyde Rate: 72 P: 90PR:157 QRS: 87QRSD: 105 T: 90QT: 360 QTc: 384 Interpretive StatementsSINUS RHYTHMPOSSIBLE RIGHT VENTRICULAR CONDUCTION DELAY [RSR (QR) IN V1/V2]EARLY REPOLARIZATION [ST ELEVATION WITH NORMALLY INFLECTED T-WAVE]Electronically Signed On 01-17-2022 13:02:30 CDT by [facility] [place] [address]HyxokmDYQ2335-40-56 21:23:2512 LEAD EKG FOR [facility] Test Date: 5097-94-27Efi Name: DORA POYEN Department: 5520Patient ID: [id number] Room: 7V30Quptyz: M Last Greaser: : 1970 Requested By: KARIN BASSETT AOrder Number: [id number] Reading MD: Chiara Calles MeasurementsIntervals Clyde Rate: 72 P: 90PR: 157 QRS: 87QRSD: 105 T: 90QT: 360 QTc: 384 Interpretive StatementsSINUS RHYTHMPOSSIBLE RIGHT VENTRICULAR CONDUCTION DELAY [RSR (QR) IN V1/V2]EARLY REPOLARIZATION [ST ELEVATION WITH NORMALLY INFLECTED T-WAVE]Electronically Signed On 01-17-2022 13:02:30 CDT by Opax JtspplVEX5558-25-43 21:23:2512 LEAD EKG FOR [facility] Test Date: 7168-81-57Qvu Name: DORA PAEZRY Department: 5520Patient ID: [id number] Room: 4U09Mwepya: M Last Greaser: : 1970 Requested By: KARIN BASSETT AOrder Number: [id number] Reading MD: Chiara Calles MeasurementsIntervals Clyde Rate: 72 P: 90PR:157 QRS: 87QRSD: 105 T: 90QT: 360 QTc: 384 Interpretive StatementsSINUS RHYTHMPOSSIBLE RIGHT VENTRIC ULAR CONDUCTION DELAY [RSR (QR) IN V1/V2]EARLY REPOLARIZATION [ST ELEVATION WITH NORMALLY INFLECTED T-WAVE]Electronically Signed On 01-17-2022 13:02:30 CDT by Chiara DavisSycamore Medical CenterRS-CoV-2 ORF1ab Resp Ql OLENA+lhfoj1882-87-04 19:57:49 Test Item Value Reference Range Interpretation Comments Hospitalized? (test No code = 99690-1) ICU? (test code = No 80950-1) Symptomatic as No defined by CDC? (test code = 19411-0) Employed in No Healthcare? (test code = 74710-9) Resident in a No congregate care setting (including nursing homes, residential care for people with intellectual and developmental disabilities, psychiatric treatment facilities, group homes, board and care homes, homeless residential, foster care or other): (test code = 92120-1) SARS-CoV-2 ORF1ab NOT DETECTED Not Detected INTERPRETA TION: No Resp Ql OLENA+probe detectable levels of (test code = SARS-CoV-2 23800-6) Coronavirus (COVID-19) were present in this patient's [...] SARS-CoV-2 mole cular diagnostic assa y utilizes Cath Laboratory Technician Mediated Amplification ( TMA) technology to r apidly detect the SARS -CoV-2 (COVID-19) viru s from respiratory adriana ples. In accordance with\\XC2A0\\the FDA's guidance docume nt "Policy for Diagnostic Test s for Coronavirus Disease-2019 du ring the Public Heal th Emergency", amalia s test was developed, and its performance characteristics were verified by the [facility] molecular diagn ostics laboratory and is authorized for clinical diagno stic use. \\XC2A0\\Amalia s laboratory is certified under the Clinical Labora tory Improvement Amendments (CLI A) as qualified to pe rform high complexity clinical labora tory testing. POCT CREATININE POC docked cvyoyc6299-60-36 13:57:55 Test Item Value Reference Range Interpretation Comments Creatinine POC (test 2.4 mg/dL 0.6-1.3 H Physici an Notified code = 04572620) eGFR If non- Am 30 See_Comment L [Aut omated message] (test code = 79115098) The s ystem which generated this result transmit dain reference range : >=90 mL/min/1.7 3 m2. The reference r meredith was not used to interpret this result as normal/abnormal . eGFR If Am (test 35 See_Comment L [A utomated message] code = 96155612) The system which generated this result transmit dain reference range : >=90 mL/min/1.7 3 m2. The reference r meredith was not used to interpret this result as normal/abnormal . Lab Interpretation (test Abnormal code = 40660-5) [facility] CREATININE POC docked qpnwsg0817-08-56 13:57:55 Test Item Value Reference Range Interpretation Comments Creatinine POC (test 2.4 mg/dL 0.6-1.3 H Physici an Notified code = 74689975) eGFR If non- Am 30 See_Comment L [Aut omated message] (test code = 18607991) The s ystem which generated this result transmit dain reference range : >=90 mL/min/1.7 3 m2. The reference r meredith was not used to interpret this result as normal/abnormal . eGFR If Am (test 35 See_Comment L [A utomated message] code = 98800423) The system which generated this result transmit dain reference range : >=90 mL/min/1.7 3 m2. The reference r meredith was not used to interpret this result as normal/abnormal . Lab Interpretation (test Abnormal code = 17013-8) [facility] CREATININE POC docked axsnuh1526-04-41 13:57:55 Test Item Value Reference Range Interpretation Comments Creatinine POC (test 2.4 mg/dL 0.6-1.3 H Physici an Notified code = 82017829) eGFR If non- Am 30 See_Comment L [Aut omated message] (test code = 30563612) The s ystem which generated this result transmit dain reference range : >=90 mL/min/1.7 3 m2. The reference r meredith was not used to interpret this result as normal/abnormal . eGFR If Am (test 35 See_Comment L [A utomated message] code = 53600085) The system which generated this result transmit dain reference range : >=90 mL/min/1.7 3 m2. The reference r meredith was not used to interpret this result as normal/abnormal . Lab Interpretation (test Abnormal code = 62971-8) [facility] BMP POC docked [id number] 13:48:46 Test Item Value Reference Range Interpretation Comments Sodium POC (test code = 126 mmol/L 136-145 L 26008704) Potassium POC (test code 4.4 mmol/L 3.5-5.1 = 88533743) Chloride POC (test code 100 mmol/L 98-107 = 10791549) TCO2 POC (test code = 17 mmol/L 21-32 L Physic aylin Notified 04785289) Urea Nitrogen POC (test 36 mg/dL 7-18 H code = 01637347) Glucose POC (test code = 114 mg/dL 74-106 H 07955490) Hemoglobin POC (test 11.9 g/dL 12-16 L code = 83108487) Hematocrit POC (test 35.0 % 37.0-47.0 L code = 60165931) Lab Interpretation (test Abnormal code = 12329-3) [facility] BMP POC docked [id number] 13:48:46 Test Item Value Reference Range Interpretation Comments Sodium POC (test code = 126 mmol/L 136-145 L 33750821) Potassium POC (test code 4.4 mmol/L 3.5-5.1 = 58471251) Chloride POC (test code 100 mmol/L 98-107 = 60213202) TCO2 POC (test code = 17 mmol/L 21-32 L Physic aylin Notified 28677065) Urea Nitrogen POC (test 36 mg/dL 7-18 H code = 75201533) Glucose POC (test code = 114 mg/dL 74-106 H 35308966) Hemoglobin POC (test 11.9 g/dL 12-16 L code = 67108847) Hematocrit POC (test 35.0 % 37.0-47.0 L code = 10954442) Lab Interpretation (test Abnormal code = 45236-4) [facility] BMP POC docked [id number] 13:48:46 Test Item Value Reference Range Interpretation Comments Sodium POC (test code = 126 mmol/L 136-145 L 91635208) Potassium POC (test code 4.4 mmol/L 3.5-5.1 = 79766469) Chloride POC (test code 100 mmol/L 98-107 = 51557797) TCO2 POC (test code = 17 mmol/L 21-32 L Physic aylin Notified 33203393) Urea Nitrogen POC (test 36 mg/dL 7-18 H code = 06900060) Glucose POC (test code = 114 mg/dL 74-106 H 03391950) Hemoglobin POC (test 11.9 g/dL 12-16 L code = 76361003) Hematocrit POC (test 35.0 % 37.0-47.0 L code = 43873442) Lab Interpretation (test Abnormal code = 65015-0) [facility]0 ORF1ab Resp Ql OLENA+jzevp2092-09-33 20:25:16 Test Item Value Reference Range Interpretation Comments Hospitalized? (test No code = 62558-3) ICU? (test code = No 79992-4) Symptomatic as No defined by CDC? (test code = 35925-4) Employed in No Healthcare? (test code = 71325-9) Resident in a No congregate care setting (including nursing homes, residential care for people with intellectual and developmental disabilities, psychiatric treatment facilities, group homes, board and care homes, homeless residential, foster care or other): (test code = 38149-4) SARS-CoV-2 ORF1ab NOT DETECTED Not Detected INTERPRETA TION: No Resp Ql OLENA+probe detectable levels of (test code = SARS-CoV-2 08291-2) Coronavirus (COVID-19) were present in this patient's [...] SARS-CoV-2 mole cular diagnostic assa y utilizes Cath Laboratory Technician Mediated Amplification ( TMA) technology to r apidly detect the SARS -CoV-2 (COVID-19) viru s from respiratory adriana ples. In accordance with\\XC2A0\\the FDA's guidance docume nt "Policy for Diagnostic Test s for Coronavirus Disease-[address] [facility] ([place], [place]) the [facility] Emergency", amalia s test was developed, and its performance characteristics were verified by the [facility] molecular diagn ostics laboratory and is authorized for clinical diagno stic use. \\XC2A0\\Amalia s laboratory is certified under the Clinical Labora tory Improvement Amendments (CLI A) as qualified to pe rform high complexity clinical labora tory testing. POCT VBG POC docked baledw1524-95-89 11:16:15 Test Item Value Reference Range Interpretation Comments pH, Pankaj POC (test code 7.32 7.33-7.43 L = 70403160) pCO2,Pankaj POC (test code 31.0 See_Comment L [Au tomated = 61549236) message] The sy stem which generated this result transmitted reference range : 38 - 50 mmHg. The reference range was not used to interpret this result as normal/abnormal . PO2, Venous POC (BKR) 44 See_Comment L [Auto mated (test code = 06188565) messa ge] The system which generated this result transmitted reference range : 50 - 75 mm Hg. The reference range was not used to interpret this result as normal/abnormal . Ionized Calcium POC 1.24 mmol/L 1.15-1.29 (test code = 25047026) HCO3, Pankaj POC (test 16 mmol/L 22-26 L code = 62498834) TCO2 POC (test code = 17 mmol/L 21-32 L 41919360) Base Deficit, Pankaj POC -9 (test code = 04392544) Sample Type (test code STEPAN valencia Notified = 19160899) % Sat, Pankaj POC (test 77 % code = 62836288) Lab Interpretation Abnormal (test code = 26415-6) [facility] VBG POC docked muegxf5089-26-97 11:16:15 Test Item Value Reference Range Interpretation Comments pH, Pankaj POC (test code 7.32 7.33-7.43 L = 26356562) pCO2,Pankaj POC (test code 31.0 See_Comment L [Au tomated = 19879668) message] The sy stem which generated this result transmitted reference range : 38 - 50 mmHg. The reference range was not used to interpret this result as normal/abnormal . PO2, Venous POC (BKR) 44 See_Comment L [Auto mated (test code = 94993634) enrich-ina ge] The system which generated this result transmitted reference range : 50 - 75 mm Hg. The reference range was not used to interpret this result as normal/abnormal . Ionized Calcium POC 1.24 mmol/L 1.15-1.29 (test code = 87548081) HCO3, Pankaj POC (test 16 mmol/L 22-26 L code = 56264851) TCO2 POC (test code = 17 mmol/L 21-32 L 73213559) Base Deficit, Pankaj POC -9 (test code = 79611468) Sample Type (test code STEPAN valencia Notified = 43795651) % Sat, Pankaj POC (test 77 % code = 51078181) Lab Interpretation Abnormal (test code = 25949-7) [facility] VBG POC docked anshpl8811-28-39 11:16:15 Test Item Value Reference Range Interpretation Comments pH, Pankaj POC (test code 7.32 7.33-7.43 L = 80594701) pCO2,Pankaj POC (test code 31.0 See_Comment L [Au tomated = 71054296) message] The sy stem which generated this result transmitted reference range : 38 - 50 mmHg. The reference range was not used to interpret this result as normal/abnormal . PO2, Venous POC (BKR) 44 See_Comment L [Auto mated (test code = 72534451) enrich-ina [employer]] The system which generated this result transmitted reference range : 50 - 75 mm Hg. The reference range was not used to interpret this result as normal/abnormal . Ionized Calcium POC 1.24 mmol/L 1.15-1.29 (test code = 03642894) HCO3, Pankaj POC (test 16 mmol/L 22-26 L code = 73481010) TCO2 POC (test code = 17 mmol/L 21-32 L 34198125) Base Deficit, Pankaj POC -9 (test code = 39206131) Sample Type (test code IVEN Physi erik Notified = 13959658) % Sat, Pankaj POC (test 77 % code = 91741419) Lab Interpretation Abnormal (test code = 71292-2) [place] [address] LEAD [id number] 20:59:5612 LEAD EKG FOR [facility] Test Date: [id number] Name: DORA JOSEPH Department: 5520Patient ID: [id number] Room: Gender: M Last Greaser: [id number]: 1970 Requested By: TANJA Garza Number: [id number] Reading MD: Chiara Calles MeasurementsIntervals Clyde Rate: 75 P: 84PR: 153 QRS: 67QRSD: 104 T: 77QT: 344 QTc: 373 Interpretive StatementsSINUS RHYTHMPOSSIBLE RIGHT VENTRICULAR CONDUCTION DELAY [RSR (QR) IN V1/V2]Electronically Signed On 01-09-2022 8:27:19 CDT [place] [address] LEAD [id number] 20:59:5612 LEAD EKG FOR [facility] Test Date: [id number] Name: DORA PAEZRY Department: 5520Patient ID: [id number] Room: Gender: M Last Greaser: [id number]: 1970 Requested By: TANJA Garza Number: [id number] Reading MD: Chiara Calles MeasurementsIntervals Clyde Rate: 75 P: 84PR: 153 QRS: 67QRSD: 104 T: 77QT: 344 QTc: 373 Interpretive StatementsSINUS RHYTHMPOSSIBLE RIGHT VENTRI CULAR CONDUCTION DELAY [RSR (QR) IN V1/V2]Electronically Signed On 01-09-2022 8:27:19 CDT by [facility] [place] [address] LEAD PYN1073-97-83 20:59:5612 LEAD EKG FOR [facility] Test Date: [id number] Name: DORA JOSEPH Department: 5520Patient ID: [id number] Room: Gender: M Last Greaser: [id number]: 1970 Requested By: TANJA Garza Number: [id number] Reading MD: Chiara Calles MeasurementsIntervals Clyde Rate: 75 P: 84PR: 153 QRS: 67QRSD: 104 T: 77QT: 344 QTc: 373 Interpretive StatementsSINUS RHYTHMPOSSIBLE RIGHT VENTRICULAR CONDUCTION DELAY [RSR (QR) IN V1/V2]Electronically Signed On 01-09-2022 8:27:19 CDT by [facility] W/AUTO [id number] 23:52:00 Test Item Value Reference Range Interpretation [...] = MX#) 0.8 k/mm3 0.1-0.8 N LIVER [id number] 20:04:00 Test Item Value Reference Range Interpretation Comments TOTAL PROTEIN (test code 6.7 GM/DL 5.0-8.0 N Per formed by = PROT) 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 [facility] ALBUMIN (test code = 3.4 g/dL [...] 67 UNITS/L 25-125 N TAWNY) BASIC METABOLIC [id number] 19:54:00 Test Item Value Reference Range Interpretation [...] POCGLU) 81 MG/DL - CT ABD PELVIS W/JFLL2122-40-86 00:00:00 [facility] SHANA LAKEName: HOANG JOSEPH : 1970 Sex: M Name: HOANG JOSEPH FSED : 1970 Age/S: 51 / M [address] [facility] Unit #: [id number] Loc: [place] [address] Phys: Raffaele Levi MD Acct: [id number] Dis Date: Status: PRE ER PHONE #: Exam Date: 09/23/20211999 FAX #: Reason: RUQ PAIN, VOMITING EXAMS: CPT CODE: [id number] CT ABD PELVIS W/CONT [id number] INFORMATION: Exam: CT Abdomen And Pelvis With Contrast Exam date and time: 09/23/2021 7:51 PM Age: 51 years old Clinical indication: [...] renal calculus versus excreted contrast. Bilateral kidneys otherwisenormal. Stomach and bowel: The colon has been removed. Mild to moderate wall thickening of few left abdominal small bowel loops are seen. No dilated bowel loops are seen. Right lower quadrant ileostomy present with peristomal fat containing hernia once again seen. Appendix: Not visualized. Intraperitoneal space: No free air or free fluid in the abdomen or pelvis. Vasculature: Abdominal aorta is normal caliber. Lymph nodes: Subcentimeter short axis lymph nodes present. Urinary bladder: Bladder is part ially distended with fluid. Reproductive: Unremarkable as visualized. Bones/joints: No suspicious osseous abnormality identified. IMPRESSION: 1. Nonspecific mild to moderate wall thickening of few left PAGE 1 Signed Report (CONTINUED) Name: HOANG JOSEPH FSED : 1970 Age/S: 51 / M [address] [facility] Unit #: [id number] Loc: [place] [address] Phys: Raffaele Levi MD Acct: [id number] Dis Date: Status: PRE ER PHONE #: Exam Date: 09/23/20211999 FAX #: Reason: RUQ PAIN, VOMITING EXAMS: CPT CODE: [id number] CT ABD PELVIS W/CONT 64752 <Continued> abdominal small bowel loops may relate [...] (2049) PAGE 2 Signed ReportCOMP. METABOLIC PANEL ([id number])2021-09-14 03:57:44 Test Item Value Reference Range Interpretation Comments NA (test code = 132 mmol/L 135-145 L 3786295455) K (test code = 4.1 mmol/L 3.5-5.0 4893926174) CL (test code = 101 mmol/L 98-108 0148571279) CO2 TOTAL (test code = 23 mmol/L -31 7901082736) AGAP (test code = 2-16 0277303141) BUN (test code = 23 mg/dL 7-23 2697258927) GLUCOSE (test code = 97 mg/dL 70-110 0016879207) CREATININE (test code = 1.48 mg/dL 0.60-1.25 H 6096780156) TOTAL BILI (test code = 0.3 mg/dL 0.1-1.3 6040709752) CALCIUM (test code = 9.0 mg/dL 8.6-10.6 3333218835) T PROTEIN (test code = 6.2 g/dL 6.3-8.2 L 8622334954) ALBUMIN (test code = 3.7 g/dL 3.5-5.0 8312020415) ALK PHOS (test code = 82 U/L 34-122 6572748864) ALTv (test code = 21 U/L 5-50 1742-6) AST(SGOT) (test code = 20 U/L 13-40 1894255262) eGFR (test code = mL/min/1.73m2 3457909264) GILBERTO (test code = GILBERTO) Association of [...] tests). Lab Interpretation Abnormal (test code = 54216-7) [facility] WITH [id number] 03:52:42 Test Item Value Reference Range Interpretation [...] RDW-SD (test code = 47.2 fL 38.5-51.6 97403-4) RDW-CV (test code = 14.0 % 12.1-15.4 788-0) PLT (test code = See_Comment H [Automated 777-3) message] The sy stem which generated this result transmitted reference range : 150 - 328 10*3/ ?L. The reference r meredith was not used to interpret this result as normal/abnormal . MPV (test code = 9.2 fL 9.8-13.0 L 54079-0) NRBC/100 WBC (test See_Comment [Automat ed code = 4857857738) message] The system which generated this result transmitted reference range : 0.0 - 10.0 /100 WBCs. The refer ence range was not u sed to interpret th is result as normal/abnormal . NRBC x10^3 (test code <0.01 See_Comment [Auto mated = 3173605489) message] The s ysteWordWatch which generated this result transmitted reference range : 10*3/?L. The reference range was not used to interpret this result as normal/abnormal . GRAN MAT (NEUT) % 61.3 % (test code = 770-8) IMM GRAN % (test code 0.20 % = 6295831959) LYMPH % (test code = 23.1 % 736-9) MONO % (test code = 13.7 % 5905-5) EOS % (test code = 1.5 % 713-8) BASO % (test code = 0.2 % 706-2) GRAN MAT x10^3(ANC) 2.78 10*3/uL 1.99-6.95 (test code = 1999582474) IMM GRAN x10^3 (test <0.03 0.00-0.06 code = 3428514362) LYMPH x10^3 (test code 1.05 10*3/uL 1.09-3.23 L = 731-0) MONO x10^3 (test code 0.62 10*3/uL 0.36-1.02 = 742-7) EOS x10^3 (test code = 0.07 10*3/uL 0.06-0.53 711-2) BASO x10^3 (test code <0.03 0.01-0.09 = 704-7) Lab Interpretation Abnormal (test code = 92091-6) [facility] [id number] 13:36:34 Test Item Value Reference Interpretation Comments Range TROPONIN I (test 0.001 ng/mL See_Comment [Automated code = 0492623605) message] The system which generated this result [...] biotin. Lab Interpretation Normal (test code = 60298-0) [facility][id number] 13:36:34 Test Item Value Reference Range Interpretation Comments NT-proBNP (test code 79 pg/mL See_Comment [Autom ated = 0738214096) message] The system which generated this result transmitted reference range : <=125. The reference range was not used to interpret this result as normal/abnormal . GILBERTO (test code = GILBERTO) Biotin has been reported to cause a negative bias, interpret results relative to patient's use of biotin. Lab Interpretation Normal (test code = 26582-8) [facility]OL[facility] (NA, K, CL, CO2, GLUCOSE, BUN, CREATININE, CA)2021-09-12 13:24:32 Test Item Value Reference Range Interpretation Comments NA (test code = 134 mmol/L 135-145 L 6810077377) K (test code = 4.3 mmol/L 3.5-5.0 6320237288) CL (test code = 102 mmol/L 98-108 5021702052) CO2 TOTAL (test code = 23 mmol/L 23-31 4111739091) AGAP (test code = 2-16 7913372887) BUN (test code = 22 mg/dL 7-23 7854956717) GLUCOSE (test code = 89 mg/dL 70-110 2350499711) CREATININE (test code = 1.69 mg/dL 0.60-1.25 H 8346120588) CALCIUM (test code = 9.0 mg/dL 8.6-10.6 1447584076) eGFR (test code = mL/min/1.73m2 4602355474) GILBERTO (test code = GILBERTO) Association of [...] tests). Lab Interpretation Abnormal (test code = 70083-3) [facility] WITH [id number] 13:09:28 Test Item Value Reference Range Interpretation Comments WBC (test code = See_Comment [Automated 2354-2) message] The sy stem which generated this [...] RDW-SD (test code = 45.3 fL 38.5-51.6 19767-4) RDW-CV (test code = 13.9 % 12.1-15.4 788-0) PLT (test code = See_Comment H [Automated 777-3) message] The sy stem which generated this result transmitted reference range : 150 - 328 10*3/ ?L. The reference r meredith was not used to interpret this result as normal/abnormal . MPV (test code = 9.0 fL 9.8-13.0 L 90579-6) NRBC/100 WBC (test See_Comment [Automat ed code = 6924694662) message] The system which generated this result transmitted reference range : 0.0 - 10.0 /100 WBCs. The refer ence range was not u sed to interpret th is result as normal/abnormal . NRBC x10^3 (test code <0.01 See_Comment [Auto mated = 1985463414) message] The s ystem which generated this result transmitted reference range : 10*3/?L. The reference range was not used to interpret this result as normal/abnormal . GRAN MAT (NEUT) % 69.7 % (test code = 770-8) IMM GRAN % (test code 0.40 % = 0201874537) LYMPH % (test code = 16.9 % 736-9) MONO % (test code = 11.9 % 5905-5) EOS % (test code = 0.7 % 713-8) BASO % (test code = 0.4 % 706-2) GRAN MAT x10^3(ANC) 3.88 10*3/uL 1.99-6.95 (test code = 2453820231) IMM GRAN x10^3 (test <0.03 0.00-0.06 code = 9969931634) LYMPH x10^3 (test code 0.94 10*3/uL 1.09-3.23 L = 731-0) MONO x10^3 (test code 0.66 10*3/uL 0.36-1.02 = 742-7) EOS x10^3 (test code = 0.04 10*3/uL 0.06-0.53 L 711-2) BASO x10^3 (test code <0.03 0.01-0.09 = 704-7) Lab Interpretation Abnormal (test code = 85433-2) [facility] WITH [id number] 05:55:28 Test Item Value Reference Range Interpretation [...] RDW-SD (test code = 45.4 fL 38.5-51.6 98701-0) RDW-CV (test code = 13.8 % 12.1-15.4 788-0) PLT (test code = See_Comment [Automated 777-3) message] The sy stem which generated this result transmitted reference range : 150 - 328 10*3/ ?L. The reference r meredith was not used to interpret this result as normal/abnormal . MPV (test code = 9.2 fL 9.8-13.0 L 91497-4) NRBC/100 WBC (test See_Comment [Automat ed code = 4994574125) message] The system which generated this result transmitted reference range : 0.0 - 10.0 /100 WBCs. The refer ence range was not u sed to interpret th is result as normal/abnormal . NRBC x10^3 (test code <0.01 See_Comment [Auto mated = 1533411098) message] The s ystem which generated this result transmitted reference range : 10*3/?L. The reference range was not used to interpret this result as normal/abnormal . GRAN MAT (NEUT) % 60.6 % (test code = 770-8) IMM GRAN % (test code 0.20 % = 0017838559) LYMPH % (test code = 25.5 % 736-9) MONO % (test code = 10.5 % 5905-5) EOS % (test code = 2.8 % 713-8) BASO % (test code = 0.4 % 706-2) GRAN MAT x10^3(ANC) 3.23 10*3/uL 1.99-6.95 (test code = 4769727481) IMM GRAN x10^3 (test <0.03 0.00-0.06 code = 0466332464) LYMPH x10^3 (test code 1.36 10*3/uL 1.09-3.23 = 731-0) MONO x10^3 (test code 0.56 10*3/uL 0.36-1.02 = 742-7) EOS x10^3 (test code = 0.15 10*3/uL 0.06-0.53 711-2) BASO x10^3 (test code <0.03 0.01-0.09 = 704-7) Lab Interpretation Abnormal (test code = 27715-1) [facility] 05:48:47 Test Item Value Reference Range Interpretation Comments LIPASE (test code = 1196386596) 116 U/L 0-220 Lab Interpretation (test code = Normal 62726-1) [facility] Area[facility] METABOLIC PANEL (04835)2021-09-09 05:48:46 Test Item Value Reference Range Interpretation Comments NA (test code = 137 mmol/L 135-145 7938380268) K (test code = 4.0 mmol/L 3.5-5.0 3559509459) CL (test code = 108 mmol/L 98-108 0078101277) CO2 TOTAL (test code = 22 mmol/L 23-31 L 0235963982) AGAP (test code = 2-16 3305369100) BUN (test code = 23 mg/dL 7-23 0051914902) GLUCOSE (test code = 89 mg/dL 70-110 9150273380) CREATININE (test code = 1.28 mg/dL 0.60-1.25 H 3735665426) TOTAL BILI (test code = 0.4 mg/dL 0.1-1.2 6424692931) CALCIUM (test code = 8.9 mg/dL 8.6-10.6 1889841113) T PROTEIN (test code = 6.0 g/dL 6.3-8.2 L 0206647428) ALBUMIN (test code = 3.5 g/dL 3.5-5.0 0146833334) ALK PHOS (test code = 67 U/L 34-122 1702885322) ALTv (test code = 18 U/L 5-50 1742-6) AST(SGOT) (test code = 22 U/L 13-40 8417157719) eGFR (test code = mL/min/1.73m2 6145987582) GILBERTO (test code = GILBERTO) Association of [...] tests). Lab Interpretation Abnormal (test code = 85761-5) [facility]. METABOLIC PANEL ([id number])2021-09-08 02:29:45 Test Item Value Reference Range Interpretation Comments NA (test code = 138 mmol/L 135-145 2489583201) K (test code = 4.3 mmol/L 3.5-5.0 2120787387) CL (test code = 106 mmol/L 98-108 1777724654) CO2 TOTAL (test code = 27 mmol/L 23-31 7719168995) AGAP (test code = 2-16 1959492712) BUN (test code = 22 mg/dL 7-23 8528691346) GLUCOSE (test code = 90 mg/dL 70-110 0163155256) CREATININE (test code = 1.36 mg/dL 0.60-1.25 H 3531813473) TOTAL BILI (test code = 0.4 mg/dL 0.1-1.2 9290695466) CALCIUM (test code = 9.2 mg/dL 8.6-10.6 8997433257) T PROTEIN (test code = 6.5 g/dL 6.3-8.2 7424360358) ALBUMIN (test code = 3.8 g/dL 3.5-5.0 2273717006) ALK PHOS (test code = 73 U/L 34-122 0452530974) ALTv (test code = 19 U/L 5-50 1742-6) AST(SGOT) (test code = 24 U/L 13-40 0433764276) eGFR (test code = mL/min/1.73m2 1672872450) GILBERTO (test code = GILBERTO) Association of [...] tests). Lab Interpretation Abnormal (test code = 43538-0) [facility] 02:29:45 Test Item Value Reference Range Interpretation Comments LIPASE (test code = 4669576026) 75 U/L 0-220 Lab Interpretation (test code = Normal 80348-9) [facility] WITH [id number] 02:15:21 Test Item Value Reference Range Interpretation Comments WBC (test code = See_Comment [Automated 3190-2) message] The sy stem which generated this [...] RDW-SD (test code = 45.9 fL 38.5-51.6 44351-1) RDW-CV (test code = 13.6 % 12.1-15.4 788-0) PLT (test code = See_Comment [Automated 777-3) message] The sy stem which generated this result transmitted reference range : 150 - 328 10*3/ ?L. The reference r meredith was not used to interpret this result as normal/abnormal . MPV (test code = 9.4 fL 9.8-13.0 L 42305-4) NRBC/100 WBC (test See_Comment [Automat ed code = 3796677216) message] The system which generated this result transmitted reference range : 0.0 - 10.0 /100 WBCs. The refer ence range was not u sed to interpret th is result as normal/abnormal . NRBC x10^3 (test code <0.01 See_Comment [Auto mated = 9799494542) message] The s ystem which generated this result transmitted reference range : 10*3/?L. The reference range was not used to interpret this result as normal/abnormal . GRAN MAT (NEUT) % 66.0 % (test code = 770-8) IMM GRAN % (test code 0.50 % = 7830569926) LYMPH % (test code = 20.0 % 736-9) MONO % (test code = 9.8 % 5905-5) EOS % (test code = 3.5 % 713-8) BASO % (test code = 0.2 % 706-2) GRAN MAT x10^3(ANC) 3.77 10*3/uL 1.99-6.95 (test code = 3987494532) IMM GRAN x10^3 (test 0.03 10*3/uL 0.00-0.06 code = 8783747564) LYMPH x10^3 (test code 1.14 10*3/uL 1.09-3.23 = 731-0) MONO x10^3 (test code 0.56 10*3/uL 0.36-1.02 = 742-7) EOS x10^3 (test code = 0.20 10*3/uL 0.06-0.53 711-2) BASO x10^3 (test code <0.03 0.01-0.09 = 704-7) Lab Interpretation Abnormal (test code = 31628-3) [facility] [id number] 02:10:44 Test Item Value Reference Range Interpretation Comments LACTIC ACID (test code = 1.35 mmol/L 0.50-2.20 [id number]) Lab Interpretation (test code = Normal 88820-4) [facility] [id number] 15:31:19 Test Item Value Reference Range Interpretation Comments Case Report (test code Surgical Pathology ? ? = [id number]) ?Case: [id number] ? Authorizing Provider: ?Bia Pedro MD ?Collected: ? 09/03/2021800 ?Ordering Location: ? ? [facility] OR ? Received: ?09/03/2021841 ? Department ? Pathologist: ? Shaneka Douglas MD ? Specimen: ? ?ILEUM, Ileostomy ( staple ?end proximal ) ? Final Diagnosis (test d9djpVPhHTVnc6djRACsiP code = 6289642338) FuZzEwMzNcZnRuYmpcdWMx IHtccnRmMVxlcGljOTYwMV empaBvJSBqhHIfC1Kelnym WMpkHZ1sRZ4vmLeivHEapG ZgUBCuRmWct2wfk741uREj x4puYJQAdcgelEa3bXkkH9 3no2C7FsxsW52dyQCcVOM8 XZWsCXUvnRTqVZJnQSC3VV KsyXAoV5kaCMOrLC3jfoaz EIvuWQrwZXCbqOK0WVCqtF QmT8KkTPPnOPrmTHKggag8 UzOnAz6vdLDqrFcsPAzfUD JkXHBsYWluXGZzMjBccGFy IEEuIElMRVVNLCBJTEVPU1 SIKOx3UKUsneGmZQUgUQ0r QkVOSUdOIElMRUFMIFRJU1 VETRBRQBMZUAKAN7PYTH0Y U70IWRcvZFWXX3jKMoUbEC 6AQDHAWbaAE0ZEIPBTFIEA RUxTLCBccGFyICAgICAgIC GKK91PQBAVYS4KFJiOWRuu UXwVN6KQV87XJPItfqryTV JcZnMyMiBTcmkgQmhhcmF0 oPpcB8E0mSNbUHFBOqHBJK FjlozfLAP3v6zhvURgKPJv wAOpWaRoJPRoQAFxj2ebYI VmbGFuZzEwMzNcZnRuYmpc eVQzRSBzEcAoi0jkx496lK Bwx0deETMzNfM7rHWhZCSx jWodeds1hJqtIrWmKBTsu3 lzcyBcZmNoYXJzZXQwIEFy fUKaV843DWDoMIhqu5mfo1 XqZMOksEWbb7E5VUBBVVkg SnSvI400s1ryg3pdpqHvkU E1PUIjKUL0ZFljcxQobhC3 EDvhgJRvGlF2ZPqoxjQbNI brcyPzemMuLuj8QQKuJ997 YXX6jFbpm6mvVHR0USTlSU PjOuqvVp5vsEKpJ355RISi VZTVTSIsaPe4DMVhemGkte HxtSVPn015M056l0qjXUFm ovLykOnPawhdj7uhS436TX BhcGVydzEyMjQwXHBhcGVy eLN8BFTmYL4xnnldVQfjIU zmHZZradN5CYZuzKDiR9Fx SPPrEQ8btllxUVI8LGzcDA KeZWM6OmSaEIBag8Suylk6 MsKbsv5euo91YSF6d4WjcR vaSGA8CRZ7TnYeLx9zcGMr CEZtNB6oZlHudGCeZMBqoj 45cKthILpezmQmoT8wQnLj YJYekEDlBGVsWQ5qpKWbGW IyrH5dauwvJLMiVwJuezty CKAmrRunmxKhZv9qcUvhKP X8JYioJ9bocJ3xQmS3ZXqz K0velN3sUCb7PGlfaSQ2SK MyiQ2jGR3yhaprh2hdOGsa ILjmPWOphjW0lhY6FQUldV QhI6FoaB5lLLTyVA6lwrsa s6dhUQU1KPjpSMLpYSQ9Lf GiNBQge4Qjqfz2IwYtp3Hf jSKmHRimF50as751XDEuyq MeO3kwoHYbfjksaSGoigrs DUiersZ5DBDmGZYvWPtwQC YxXGZzMjBcbGFuZzEwMzNc aGljaFxmMVxkYmNoXGYxXG soX7bsJoDjS4NqNRCcJmBz eAIuERbezHW7ENGtSOFoq5 6trGz4LAQcddvgy6SuKHVr uMRzlEBpfN5azkJbl9luRW AmXTZoDOAwK2OpLQU1gVYl MCPweMBqnGE6NN9bbrDpXR 1hZGUgYnkgcmVzaWRlbnRz CWKlZStik2fhYF4fWJAamI gbuN8mmYO8BTEdl7gzuOSe jBAyd3jlg1TemtUeYYdxEA CsUBsaIKXvVSCwQQ7mREKd jSImkbUlw1G1HkmgfTUubr jwPvyytnR8EMqnvaolZMFj BUihU5rxBqBtUAVotZndXo yun5PhIJYkLTWqFzeoxAKe fX0= Clinical Information 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] 3697416414) Gross Description (test p6jgrXSoEZSsoPJBGCAeTj code = 6435872125) rlttBwNSJwlYRtD0Uyqewp UAubNT4mGQ1rdFifyPPncZ HaJX5DIACwFyFqPJWouPIx qoCpPvGoJJBwjPNnlHT9VT VwWE7mcgenQKlhLRtmCAPx umR5BMQfcEAbU8ApQYEjXT 3mwqhsLNW4MBiqlN8couDF AhflJj3tkXUzwTymIaLmIz NoYXJzZXQwXGZuaWwgQXJp JWh4eQ0NDcrlDPO5MYIAXl obMTJzTH7Kz7nzXKUytIWi BDT5JOlyfUOrZFNdRMVgWI h9XREiVKdkfCJiJW7jjXud SxiufCtnm5GufJUkUMjiZU LvGHOqKWcjWLQqJL9USuHy BNpALYLjSIUvVbC2SSv3YC GWKbHuJkGeTPr3Huw2YoXb TPi3ETt3QGdDVhJrPTA3Sv VgUiN9SON3HMCgGBdfnDJm IFxcZiBBcmlhbCBcXGZzID WmDExyGkekTHqjQ63btRcj lQ1sWrXgNAOAVcFTUDLXGC 5yjFTaRD8ROYTyWMzyONMy vDZYECM2VR0hPYHPLqnekG AfRQWtjTiuUEhezP9gEM6I RZr0szUrHTYuUnYwH9QmU3 fjVV1uWWIkqeSsYRImyCJd ZCBmcmVzaCBhbmQgbGFiZW mzSDW3aEJuHBIhBBFaOPFb CR09B5HnzrSqQFvdJObopj YrWoTdHOMmoPG2qQeslAbz f6K0k381FCBogFQteQQhXO 4gQZJlp1npfWEcOaMcqeRh A88wm8fuwWZtu5YvPEY8IU 6zcOzquvBhADyeYE47XN4p KPExHRycYEQwv1OjZDz6Yo TjV81qrN9sdYPqH0UxHAE8 IDQuMiBjbSBpbiBkaWFtZX Rravose1r8oNGvAUY4n17n AGdmXfmeuXQsPhIjU55kDW bvzqIaCFdrwYsdXGL5vTbw GZTzmTBpDcN0RC8ePfXxr3 9yo4wyaxWhluTgAQDnzZNx hXTlMZJht0OdkRsjvxCiUK HihM1zYUBiYVTudJXtlE6y biBpcyBvcGVuIHRvIHJldm QgyPK5DJ2idDuxtyUbdp5x b6i4EYKzllHdTDKlMCYfNV DkjTMho3DnPWKYENVeAWLj hmTnpIn8PLWdTKB7zB2xdx VeazRyx5RpgQy1lUJpTWnr FBNgWBCjcu65U5sdMKUfKD BhciANClxwYXIgDQpBMTog pZFvcZkjQIggsEVyC7jzXM ZoZBRmPQEsfkGruBv5NDJk lCNfUF7MAUK3LEN9v70wUJ XfIIXrAGHrzaGfgMj5LMlh TXOjUUlNXxhvId38EOjmo1 AliDloobDiufFoHW17PKXi gkQfbMGnZS7YSHVhxqHAYa T1xXqiBHx9CYN3JNwjZPY7 hP2mv2oxj2GxLhOFf0Nty1 MwrqKqz5D4BIPbfFfvrF5u CU7zolwiDHRxYGE4m6PtQP LEAWbwzAwfaN8zJBDxQ42p b6EIr0CcWGDqTFmmv2hksU wbf9WhiUJjFIelDAPokTHu LUcmcX2xMkHoh6nxdMr5IP mkmpZ8TUBcfw0RWbdpeN2t EqSvp0tbyOf6JOWFWimdqe F6e4uyeQwqq9ZkiQEvZS8P Cn0= Disclaimer (test code = g4xmfDAlLWEzw0quKAJosO [id number]) FuZzEwMzNcZnRuYmpcdWMx VXcqtoZpOOxoz7SiL0TsMo AwMFxhbnNpXGRlZmxhbmcx CXGqUGK7dyWhDIIzNHszMS CoAPgqNn7rfDSrzYdgAiBs SLClb3oatiHJZCawGgLtT8 03QNRcNGayf5fow5UsANTg nJZjz7D1MHSQbjytwUi1cW dwB55fe2P0IkboH3zvVIBa PMZeK0VqPL3xDKEjLgy0LL E0UCJ7CHCwQFPjH9UrOQ8x IKCddHMmZFt4e5rjjPcjFG UbJXL1d1tdNHwvbvLtJE1c xr5gcIh9h1rkohZyYYQqWB AusBHMMTVwP6BuwRgoJs6a mMl3hIbaPdsfJUI6Lzu8KG 8yke72aya1kAuaDYDtngiq GjQ1DUzyJOGudvqmYQd9UW aeAUFfbZX5PXIrsPOgC0Ag UOMwIN7axtc8FLL0HSsrDK GmOyK7AEWgjFAsPVIzcVpp PFvyj318ELR9WuIoKK5yT5 Zzz9F4hG4saSAzUCArsYKp WmVjECUjek8viUEeFXskj2 ZtDZV1xmM4mSUkiKEoQUVf EO69Lyilo2FvWoafv6VjQ6 2thOZ8OJiss7yaQO0vVpH0 stGrWDlcg9ktjK4cVoS4IO cvFE2bNJ4nVQDjsW7pvxuo XHBnYnJkcmhlYWRccGdicm BdQo5bcGpcDIP0OCycO3ej cG2bRjC6IZhvC8pbiC3kGK u7QXasrKV3CCCnmE6qBD0w ykcew4khRHqxVYrlJJTpjx R4ioV3QJSzjMLhG8UklU7w GONpJN6jqfktg3amFDN0TE uiMENnHAS6AvSlUGRvq7Zg cyq5CyNiu8OmuIIcGMsvD7 8xo044BSVabwIkS3rbgFDo gpxsrFOnimakXEjwxhB4JQ PsygYaq2HoKKLlYLL4YRzc JPltdTJeFYEmoFbpn5cqQ2 RscGFyXHBsYWluXGYxXGZz MjBcbGFuZzEwMzNcaGljaF snWWcgSaGtFUOiECclW1gm CfAxX7OcQBKwTqHgqXPyX5 ggVGhpcyByZXBvcnQgbWF5 HDzpH0l5MPRnvbAxjXg3cg AfKfNpUPBdCGS5YDfgmRCl CMMfp3DzlcqvpURnFc5azZ SmSNGgrT4eZTBpRGFkGVfo IB2ttVd5EDTPjMDtmPTeYh RVHHJoQK46tnVbHHIIrrrb e1F3YXliPXEua8BbtKEgM5 esp1IbKMVak55qAA8yd0J3 s5yqRGL0FU9hn6NgNRZraN VkwVWjLRIfx1Qyvwgfz1Xs BPLgnpTvy4ZwPGGdfhQxgK NtJTGevkDubi5shqSdAAZv BIDmJ1NqygfepQsdyuIcBS Ymhq0nfvTuOTI2TCFSCDSk RUHzl5PdaN3tyENONAR8bB Rdbp5kbhIMlJOxCLVyxs05 KZQkOF8xN6kmFRDtELKwiu HtvHKkc8NcYQMveZU3lOKb EO5INrIYi61oGMLdPNNZvm McPAQudLkapLG5wnY6bU5w IChGREEpLlx+IFRoZSBGRE ZyNO5mkxOyd4KkhgZhvOxy KJYywGVef4YmnGObe1MbiB gyo3BwhXFzyOIrCW9nFPBe clxwYXIgVVRNQiBMYWJvcm L8u8NdXQGuHMLhASZ9zTfn wvm9IHCivI2wIHIbD1vyix hwXAbbPAKjy7OaqA3ytUOL sCQqm9EvaOZnlIUEnMShJG 0lghByKRbIPTsDADR6ydKd IOTtu8WlHMfaF8zqF79khG lenFy5tNM1IPB0eQ8eJgr+ IFxwYXJccGFyIEFwcHJvcH SiFSFzrWhdkvAkW1SyqmNu cC3sqDXutcRzFO5uRM7eY4 J5jKKgUHCtikMwf6jjXDmo dmUgYmVlbiByZXZpZXdlZC Suf4WpOQxeBNM3OPemqxRl bmNsdWRpbmcgSCZFLCBTcG RscPYfBKY1AXtioxAsmtCb PR0ehA3lsLokqF7vtTTybI M0uuqeMERaUQXznOmgLJOb LJ7emJJlYLGkmqWPlVmoaW HpbA2yC1UjRBMmRNJivp9j BYFdkK7cBZcyb9HjgvjxJB QwKRSrSZWtjgQesj2jQZNt iIFECX9DLWmigFMwj6Atnv BgS7nTXYR5HVIyAvEcLxoo ANCopACvjBRcPWKtdm70MO BmcP9bcSxiNOIveV3yxR1d bOdhmW4dKlGiZlWbTWnvJM 6iWFBeU4yzpOHqFIDcWTJy O6csJqMjeJ7cmFyoFCaeVy EgYcItLYucGDC3xA== Embedded Images (test code = 5168872591) [facility] [id number] 09:01:06 Test Item Value Reference Range Interpretation Comments Blood Culture-Aerobic No organisms No growth Previo us (test code = 73118-7) isolated prelim inary verified result was Culture In Progress on 08/31/2021 at 060 1 CSTPrevious preliminary verified result was No growth a t 24 hours on 09/01/2021 at 030 1 CSTPrevious preliminary verified result was No growth a t 48 hours on 09/02/2021 at 03 01 CSTPrevious preliminary verified result was No growth a t 72 hours on 09/03/2021 at 03 01 [employer] Blood No organisms No growth Previous Culture-Anaerobic isolated preliminar y (test code = 34869-3) verifi ed result was Culture In Progress on 08/31/2021 at 060 1 CSTPrevious preliminary verified result was No growth a t 24 hours on 09/01/2021 at 030 1 CSTPrevious preliminary verified result was No growth a t 48 hours on 09/02/2021 at 03 01 CSTPrevious preliminary verified result was No growth a t 72 hours on 09/03/2021 at 03 01 [employer]ODUCTION [employer]ER Lab Interpretation Normal (test code = 85317-8) [facility] METABOLIC PANEL (NA, K, CL, CO2, GLUCOSE, BUN, CREATININE, CA)2021-09-04 13:22:54 Test Item Value Reference Range Interpretation Comments NA (test code = 132 mmol/L 135-145 L 0872216093) K (test code = 4.3 mmol/L 3.5-5.0 2565399447) CL (test code = 104 mmol/L 98-108 3233697816) CO2 TOTAL (test code = 23 mmol/L 23-31 2422547942) AGAP (test code = 2-16 4319040109) BUN (test code = 15 mg/dL 7-23 7896758632) GLUCOSE (test code = 96 mg/dL 70-110 1806518943) CREATININE (test code = 1.42 mg/dL 0.60-1.25 H 8500718450) CALCIUM (test code = 8.7 mg/dL 8.6-10.6 8815156779) eGFR (test code = mL/min/1.73m2 2699165952) GILBERTO (test code = GILBERTO) Association of [...] tests). Lab Interpretation Abnormal (test code = 65658-2) [facility] METABOLIC PANEL (NA, K, CL, CO2, GLUCOSE, BUN, CREATININE, CA)2021-09-04 13:22:54 Test Item Value Reference Range Interpretation Comments NA (test code = 132 mmol/L 135-145 L 4171741875) K (test code = 4.3 mmol/L 3.5-5.0 6411882945) CL (test code = 104 mmol/L 98-108 1212519224) CO2 TOTAL (test code = 23 mmol/L 23-31 9220556815) AGAP (test code = 2-16 0774446329) BUN (test code = 15 mg/dL 7-23 0060115447) GLUCOSE (test code = 96 mg/dL 70-110 9836074345) CREATININE (test code = 1.42 mg/dL 0.60-1.25 H 7094865695) CALCIUM (test code = 8.7 mg/dL 8.6-10.6 8752488069) eGFR (test code = mL/min/1.73m2 3981114126) GILBERTO (test code = GILBERTO) Association of [...] tests). Lab Interpretation Abnormal (test code = 16853-0) [facility] CULTURE [id number] 17:16:36 Test Item Value Reference Range Interpretation Comments Blood Culture Coagulase negative Addition al Workup (test Staphylococcus work-up perfo rmed code = 600-7) only per reque st. Culture plate(s ) will be saved until this date : 09/08/21 Gram stain Isolated from aerobic (test code = bottle Gram positive 664-3) cocci in clusters [facility] CULTURE [id number] 17:16:36 Test Item Value Reference Range Interpretation Comments Blood Culture Coagulase negative Addition al Workup (test Staphylococcus work-up perfo rmed code = 600-7) only per reque st. Culture plate(s ) will be saved until this date : 09/08/21 Gram stain Isolated from aerobic (test code = bottle Gram positive 664-3) cocci in [facility] Culture - Peripheral Vein # 17:16:26 Test Item Value Reference Range Interpretation Comments Blood Culture-Aerobic Culture positive. No growth AA P revious (test code = 62321-5) See Blood Culture p reliminary Workup for verified result additional was Culture In information. Progress on 08/31/2021 at 060 1 [employer] Blood No organisms No growth Previous Culture-Anaerobic isolated preliminar y (test code = 48497-0) verifi ed result was Culture In Progress on 09/01/2021 at 012 7 [employer]ER Lab Interpretation Abnormal (test code = 16790-8) [facility] Culture - Peripheral Vein # 17:16:26 Test Item Value Reference Range Interpretation Comments Blood Culture-Aerobic Culture positive. No growth AA P revious (test code = 03271-9) See Blood Culture p reliminary Workup for verified result additional was Culture In information. Progress on 08/31/2021 at 060 1 [employer]ODUCTION [employer]INEER Blood No organisms No growth Previous Culture-Anaerobic isolated preliminar y (test code = 67823-9) verifi ed result was Culture In Progress on 09/01/2021 at 012 7 [employer]JECT [employer]ODUCTION ENGINEER Lab Interpretation Abnormal (test code = 41234-9) [facility] (NA, K, CL, CO2, GLUCOSE, BUN, CREATININE, CA)2021-09-03 12:16:04 Test Item Value Reference Range Interpretation Comments NA (test code = 130 mmol/L 135-145 L 8679836258) K (test code = 4.1 mmol/L 3.5-5.0 8485156149) CL (test code = 103 mmol/L 98-108 1149023308) CO2 TOTAL (test code = 21 mmol/L 23-31 L 9692225678) AGAP (test code = 2-16 1747280835) BUN (test code = 14 mg/dL 7-23 0291510080) GLUCOSE (test code = 90 mg/dL 70-110 1838799285) CREATININE (test code = 1.28 mg/dL 0.60-1.25 H 9887547405) CALCIUM (test code = 8.8 mg/dL 8.6-10.6 6297389648) eGFR (test code = mL/min/1.73m2 8060902111) GILBERTO (test code = GILBERTO) Association of [...] tests). Lab Interpretation Abnormal (test code = 88249-2) [facility] METABOLIC PANEL (NA, K, CL, CO2, GLUCOSE, BUN, CREATININE, CA)2021-09-03 12:16:04 Test Item Value Reference Range Interpretation Comments NA (test code = 130 mmol/L 135-145 L 5613255263) K (test code = 4.1 mmol/L 3.5-5.0 9308178548) CL (test code = 103 mmol/L 98-108 4296554714) CO2 TOTAL (test code = 21 mmol/L 23-31 L 2748256523) AGAP (test code = 2-16 8369495961) BUN (test code = 14 mg/dL 7-23 3579235274) GLUCOSE (test code = 90 mg/dL 70-110 9922331542) CREATININE (test code = 1.28 mg/dL 0.60-1.25 H 5746030415) CALCIUM (test code = 8.8 mg/dL 8.6-10.6 6900833264) eGFR (test code = mL/min/1.73m2 0533542517) GILBERTO (test code = GILBERTO) Association of [...] tests). Lab Interpretation Abnormal (test code = 74358-2) [facility] WITHOUT [id number] 11:53:39 Test Item Value Reference Range Interpretation Comments WBC (test code = 6690-2) See_Comment [A utomated message] The system [email or web address] generated this result transmit dain reference range : 4.20 - 10.70 10*3/?L. The reference range was not used to interpret this result as normal/abnormal . RBC (test code = 789-8) See_Comment L [Au tomated message] The system [email or web address] generated this result transmit dain reference range [...] 777-3) See_Comment [Au tomated message] The system [email or web address] generated this result transmit dain reference range : 150 - 328 10*3/?L. The reference range was not used to interpret this result as normal/abnormal . MPV (test code = 10.1 fL 9.8-13.0 52055-6) RDW-CV (test code = 13.5 % 12.1-15.4 788-0) RDW-SD (test code = 44.6 fL 38.5-51.6 64607-6) NRBC x10^3 (test code = <0.01 See_Comment [Au tomated message] 3154745298) The system [email or web address] generated this result transmit dain reference range : 10*3/?L. The reference range was not used to interpret this result as normal/abnormal . NRBC/100 WBC (test code See_Comment [Au tomated message] = 5781120935) The system [facility] generated this result transmit dain reference range : 0.0 - 10.0 /100 WBC s. The reference r meredith was not used to interpret this result as normal/abnormal . IPF % (test code = 4705357552) Lab Interpretation (test Abnormal code = 13810-8) [facility] WITHOUT [id number] 11:53:39 Test Item Value Reference Range Interpretation Comments WBC (test code = 6690-2) See_Comment [A utomated message] The system [email or web address] generated this result transmit dain reference range : 4.20 - 10.70 10*3/?L. The reference range was not used to interpret this result as normal/abnormal . RBC (test code = 789-8) See_Comment L [Au tomated message] The system [email or web address] generated this result transmit dain reference range [...] 777-3) See_Comment [Au tomated message] The system [email or web address] generated this result transmit dain reference range : 150 - 328 10*3/?L. The reference range was not used to interpret this result as normal/abnormal . MPV (test code = 10.1 fL 9.8-13.0 86799-5) RDW-CV (test code = 13.5 % 12.1-15.4 788-0) RDW-SD (test code = 44.6 fL 38.5-51.6 87465-9) NRBC x10^3 (test code = <0.01 See_Comment [Au tomated message] 6844855970) The system [employer] h generated this result transmit dain reference range : 10*3/?L. The reference range was not used to interpret this result as normal/abnormal . NRBC/100 WBC (test code See_Comment [Au tomated message] = 1268468990) The system Done In :60 Seconds generated this result transmit dain reference range : 0.0 - 10.0 /100 WBC s. The reference r meredith was not used to interpret this result as normal/abnormal . IPF % (test code = 7247250856) Lab Interpretation (test Abnormal code = 91599-3) [facility] METABOLIC PANEL (NA, K, CL, CO2, GLUCOSE, BUN, CREATININE, CA)2021-09-02 12:06:01 Test Item Value Reference Range Interpretation Comments NA (test code = 132 mmol/L 135-145 L 7581457864) K (test code = 4.4 mmol/L 3.5-5.0 2393299506) CL (test code = 106 mmol/L 98-108 6988075038) CO2 TOTAL (test code = 22 mmol/L 23-31 L 9956636313) AGAP (test code = 2-16 4007657302) BUN (test code = 16 mg/dL 7-23 1606595207) GLUCOSE (test code = 83 mg/dL 70-110 1126626615) CREATININE (test code = 1.33 mg/dL 0.60-1.25 H 3422224824) CALCIUM (test code = 8.8 mg/dL 8.6-10.6 1068046257) eGFR (test code = mL/min/1.73m2 3549047179) GILBERTO (test code = GILBERTO) Association of [...] tests). Lab Interpretation Abnormal (test code = 66309-7) [facility] METABOLIC PANEL (NA, K, CL, CO2, GLUCOSE, BUN, CREATININE, CA)2021-09-02 12:06:01 Test Item Value Reference Range Interpretation Comments NA (test code = 132 mmol/L 135-145 L 3571866235) K (test code = 4.4 mmol/L 3.5-5.0 3994873508) CL (test code = 106 mmol/L 98-108 1928583986) CO2 TOTAL (test code = 22 mmol/L 23-31 L 8966246569) AGAP (test code = 2-16 4218909152) BUN (test code = 16 mg/dL 7-23 2278320210) GLUCOSE (test code = 83 mg/dL 70-110 1322961973) CREATININE (test code = 1.33 mg/dL 0.60-1.25 H 6329096549) CALCIUM (test code = 8.8 mg/dL 8.6-10.6 1664647651) eGFR (test code = mL/min/1.73m2 0788993253) GILBERTO (test code = GILBERTO) Association of [...] tests). Lab Interpretation Abnormal (test code = 24508-5) [facility] METABOLIC PANEL (NA, K, CL, CO2, GLUCOSE, BUN, CREATININE, CA)2021-09-01 21:55:22 Test Item Value Reference Range Interpretation Comments NA (test code = 130 mmol/L 135-145 L 4448591592) K (test code = 4.2 mmol/L 3.5-5.0 3271213137) CL (test code = 103 mmol/L 98-108 5383439623) CO2 TOTAL (test code = 20 mmol/L 23-31 L 7386812764) AGAP (test code = 2-16 1319501518) BUN (test code = 20 mg/dL 7-23 3297596361) GLUCOSE (test code = 106 mg/dL 70-110 3554171250) CREATININE (test code = 1.51 mg/dL 0.60-1.25 H 7875986913) CALCIUM (test code = 8.5 mg/dL 8.6-10.6 L 7023746616) eGFR (test code = mL/min/1.73m2 8254614594) GILBERTO (test code = GILBERTO) Association of [...] tests). Lab Interpretation Abnormal (test code = 57306-8) [facility] (NA, K, CL, CO2, GLUCOSE, BUN, CREATININE, CA)2021-09-01 21:55:22 Test Item Value Reference Range Interpretation Comments NA (test code = 130 mmol/L 135-145 L 9428266085) K (test code = 4.2 mmol/L 3.5-5.0 9852117321) CL (test code = 103 mmol/L 98-108 9944834625) CO2 TOTAL (test code = 20 mmol/L 23-31 L 6887395729) AGAP (test code = 2-16 2184401434) BUN (test code = 20 mg/dL 7-23 6807112588) GLUCOSE (test code = 106 mg/dL 70-110 1083895981) CREATININE (test code = 1.51 mg/dL 0.60-1.25 H 9107986338) CALCIUM (test code = 8.5 mg/dL 8.6-10.6 L 1546800702) eGFR (test code = mL/min/1.73m2 0578769299) GILBERTO (test code = GILBERTO) Association of [...] tests). Lab Interpretation Abnormal (test code = 65909-9) [facility] DNA [id number] 10:31:32 Test Item Value Reference Range Interpretation Comments Coagulase Negative Positive Negative, See A Staphylococcus (test Comment/Narrative code = 39417-0) GILBERTO (test code = GILBERTO) Coagulase negative [...] contact the Antimicrobial Stewardship Program with questions.Pager: ?[phone] Testing included eleven identification and three resistance marker targets. Lab Interpretation Abnormal (test code = 33295-2) [facility] [id number] 10:31:32 Test Item Value Reference Range Interpretation Comments Coagulase Negative Positive Negative, See A Staphylococcus (test Comment/Narrative code = 25150-4) GILBERTO (test code = GILBERTO) Coagulase negative [...] contact the Antimicrobial Stewardship Program with questions.Pager: ?[phone] Testing included eleven identification and three resistance marker targets. Lab Interpretation Abnormal (test code = 96315-6) [facility] METABOLIC PANEL (NA, K, CL, CO2, GLUCOSE, BUN, CREATININE, CA)2021-09-01 08:38:47 Test Item Value Reference Range Interpretation Comments NA (test code = 130 mmol/L 135-145 L 7393972504) K (test code = 4.0 mmol/L 3.5-5.0 1913309733) CL (test code = 105 mmol/L 98-108 6477156075) CO2 TOTAL (test code = 20 mmol/L 23-31 L 1583802674) AGAP (test code = 2-16 2179536051) BUN (test code = 21 mg/dL 7-23 4571441601) GLUCOSE (test code = 88 mg/dL 70-110 7769238274) CREATININE (test code = 1.31 mg/dL 0.60-1.25 H 5509924899) CALCIUM (test code = 8.5 mg/dL 8.6-10.6 L 3179226074) eGFR (test code = mL/min/1.73m2 0202971405) GILBERTO (test code = GILBERTO) Association of [...] tests). Lab Interpretation Abnormal (test code = 51149-6) [facility] METABOLIC PANEL (NA, K, CL, CO2, GLUCOSE, BUN, CREATININE, CA)2021-09-01 08:38:47 Test Item Value Reference Range Interpretation Comments NA (test code = 130 mmol/L 135-145 L 4342558663) K (test code = 4.0 mmol/L 3.5-5.0 8729108027) CL (test code = 105 mmol/L 98-108 0703259783) CO2 TOTAL (test code = 20 mmol/L 23-31 L 5802940120) AGAP (test code = 2-16 9066094927) BUN (test code = 21 mg/dL 7-23 1238732481) GLUCOSE (test code = 88 mg/dL 70-110 7800548826) CREATININE (test code = 1.31 mg/dL 0.60-1.25 H 9179077378) CALCIUM (test code = 8.5 mg/dL 8.6-10.6 L 7014245873) eGFR (test code = mL/min/1.73m2 2225593668) GILBERTO (test code = GILBERTO) Association of [...] tests). Lab Interpretation Abnormal (test code = 74962-3) [facility] WITH [id number] 08:13:43 Test Item Value Reference Range Interpretation Comments WBC (test code = See_Comment [Automated 7798-2) message] The sy stem which generated this [...] RDW-SD (test code = 43.0 fL 38.5-51.6 26698-4) RDW-CV (test code = 13.7 % 12.1-15.4 788-0) PLT (test code = See_Comment [Automated 777-3) message] The sy stem which generated this result transmitted reference range : 150 - 328 10*3/ ?L. The reference r meredith was not used to interpret this result as normal/abnormal . MPV (test code = 9.9 fL 9.8-13.0 52477-4) NRBC/100 WBC (test See_Comment [Automat ed code = 6115076105) message] The system which generated this result transmitted reference range : 0.0 - 10.0 /100 WBCs. The refer ence range was not u sed to interpret th is result as normal/abnormal . NRBC x10^3 (test code <0.01 See_Comment [Auto mated = 6071390739) message] The s ystem which generated this result transmitted reference range : 10*3/?L. The reference range was not used to interpret this result as normal/abnormal . GRAN MAT (NEUT) % 48.2 % (test code = 770-8) IMM GRAN % (test code 0.40 % = 3756881879) LYMPH % (test code = 39.5 % 736-9) MONO % (test code = 9.0 % 5905-5) EOS % (test code = 2.3 % 713-8) BASO % (test code = 0.6 % 706-2) GRAN MAT x10^3(ANC) 2.35 10*3/uL 1.99-6.95 (test code = 8954069740) IMM GRAN x10^3 (test <0.03 0.00-0.06 code = 8920966959) LYMPH x10^3 (test code 1.93 10*3/uL 1.09-3.23 = 731-0) MONO x10^3 (test code 0.44 10*3/uL 0.36-1.02 = 742-7) EOS x10^3 (test code = 0.11 10*3/uL 0.06-0.53 711-2) BASO x10^3 (test code 0.03 10*3/uL 0.01-0.09 = 704-7) Lab Interpretation Abnormal (test code = 73867-5) [facility] WITH [id number] 08:13:43 Test Item Value Reference Range Interpretation [...] RDW-SD (test code = 43.0 fL 38.5-51.6 80045-1) RDW-CV (test code = 13.7 % 12.1-15.4 788-0) PLT (test code = See_Comment [Automated 777-3) message] The sy stem which generated this result transmitted reference range : 150 - 328 10*3/ ?L. The reference r meredith was not used to interpret this result as normal/abnormal . MPV (test code = 9.9 fL 9.8-13.0 91907-7) NRBC/100 WBC (test See_Comment [Automat ed code = 5184378931) message] The system which generated this result transmitted reference range : 0.0 - 10.0 /100 WBCs. The refer ence range was not u sed to interpret th is result as normal/abnormal . NRBC x10^3 (test code <0.01 See_Comment [Auto mated = 6808467638) message] The s ystem which generated this result transmitted reference range : 10*3/?L. The reference range was not used to interpret this result as normal/abnormal . GRAN MAT (NEUT) % 48.2 % (test code = 770-8) IMM GRAN % (test code 0.40 % = 5713222436) LYMPH % (test code = 39.5 % 736-9) MONO % (test code = 9.0 % 5905-5) EOS % (test code = 2.3 % 713-8) BASO % (test code = 0.6 % 706-2) GRAN MAT x10^3(ANC) 2.35 10*3/uL 1.99-6.95 (test code = 5818132475) IMM GRAN x10^3 (test <0.03 0.00-0.06 code = 2935042521) LYMPH x10^3 (test code 1.93 10*3/uL 1.09-3.23 = 731-0) MONO x10^3 (test code 0.44 10*3/uL 0.36-1.02 = 742-7) EOS x10^3 (test code = 0.11 10*3/uL 0.06-0.53 711-2) BASO x10^3 (test code 0.03 10*3/uL 0.01-0.09 = 704-7) Lab Interpretation Abnormal (test code = 61712-0) [facility] [id number] 06:37:20 Test Item Value Reference Range Interpretation Comments MAGNESIUM (test code = 5490434496) 1.9 mg/dL 1.7-2.4 Lab Interpretation (test code = Normal 98588-4) [facility] [id number] 06:37:20 Test Item Value Reference Range Interpretation Comments MAGNESIUM (test code = 9172142169) 1.9 mg/dL 1.7-2.4 Lab Interpretation (test code = Normal 41020-7) [facility] METABOLIC PANEL (NA, K, CL, CO2, GLUCOSE, BUN, CREATININE, CA)2021-09-01 02:46:47 Test Item Value Reference Range Interpretation Comments NA (test code = 132 mmol/L 135-145 L 2195930785) K (test code = 4.0 mmol/L 3.5-5.0 2388100652) CL (test code = 102 mmol/L 98-108 4449630417) CO2 TOTAL (test code = 21 mmol/L 23-31 L 0863438244) AGAP (test code = 2-16 8940225360) BUN (test code = 24 mg/dL 7-23 H 6208818279) GLUCOSE (test code = 95 mg/dL 70-110 2409133532) CREATININE (test code = 1.40 mg/dL 0.60-1.25 H 2936719784) CALCIUM (test code = 8.6 mg/dL 8.6-10.6 9734702205) eGFR (test code = mL/min/1.73m2 4877790102) GILBERTO (test code = GILBERTO) Association of [...] tests). Lab Interpretation Abnormal (test code = 37170-5) [facility] METABOLIC PANEL (NA, K, CL, CO2, GLUCOSE, BUN, CREATININE, CA)2021-09-01 02:46:47 Test Item Value Reference Range Interpretation Comments NA (test code = 132 mmol/L 135-145 L 1206716320) K (test code = 4.0 mmol/L 3.5-5.0 9815198813) CL (test code = 102 mmol/L 98-108 7341523547) CO2 TOTAL (test code = 21 mmol/L 23-31 L 9812560515) AGAP (test code = 2-16 0998742403) BUN (test code = 24 mg/dL 7-23 H 8613756060) GLUCOSE (test code = 95 mg/dL 70-110 0795275397) CREATININE (test code = 1.40 mg/dL 0.60-1.25 H 2608255133) CALCIUM (test code = 8.6 mg/dL 8.6-10.6 6134798065) eGFR (test code = mL/min/1.73m2 9420524681) GILBERTO (test code = GILBERTO) Association of [...] tests). Lab Interpretation Abnormal (test code = 72210-3) [facility] [id number] 12:49:48 Test Item Value Reference Range Interpretation Comments LACTIC ACID (test code = 2.02 mmol/L 0.50-2.20 QUE S 6407635472) Lab Interpretation (test code = Normal 44820-8) [facility] [id number] 12:49:48 Test Item Value Reference Range Interpretation Comments LACTIC ACID (test code = 2.02 mmol/L 0.50-2.20 QUE S 7493901391) Lab Interpretation (test code = Normal 91214-9) [facility] METABOLIC PANEL (NA, K, CL, CO2, GLUCOSE, BUN, CREATININE, CA)2021-08-31 12:29:06 Test Item Value Reference Range Interpretation Comments NA (test code = 129 mmol/L 135-145 L 9707481598) K (test code = 3.6 mmol/L 3.5-5.0 6316260861) CL (test code = 101 mmol/L 98-108 0177105027) CO2 TOTAL (test code = 18 mmol/L 23-31 L 3336336067) AGAP (test code = 2-16 9752089027) BUN (test code = 35 mg/dL 7-23 H 2352867735) GLUCOSE (test code = 97 mg/dL 70-110 6633973931) CREATININE (test code = 1.58 mg/dL 0.60-1.25 H 0299670851) CALCIUM (test code = 8.3 mg/dL 8.6-10.6 L 5003502008) eGFR (test code = mL/min/1.73m2 9799304670) GILBERTO (test code = GILBERTO) Association of [...] tests). Lab Interpretation Abnormal (test code = 45741-9) [facility] METABOLIC PANEL (NA, K, CL, CO2, GLUCOSE, BUN, CREATININE, CA)2021-08-31 12:29:06 Test Item Value Reference Range Interpretation Comments NA (test code = 129 mmol/L 135-145 L 4012079652) K (test code = 3.6 mmol/L 3.5-5.0 7870856525) CL (test code = 101 mmol/L 98-108 6194922698) CO2 TOTAL (test code = 18 mmol/L 23-31 L 4006167407) AGAP (test code = 2-16 9527184738) BUN (test code = 35 mg/dL 7-23 H 2429837441) GLUCOSE (test code = 97 mg/dL 70-110 7917146014) CREATININE (test code = 1.58 mg/dL 0.60-1.25 H 3698856112) CALCIUM (test code = 8.3 mg/dL 8.6-10.6 L 3228177986) eGFR (test code = mL/min/1.73m2 0110241588) GILBERTO (test code = GILBERTO) Association of [...] tests). Lab Interpretation Abnormal (test code = 78751-6) [facility] AreaTHYROID STIMULATING [id number] 07:42:44 Test Item Value Reference Range Interpretation Comments TSH (test code = See_Comment [Automated message] 0714816057) The system [email or web address] generated this result transmitted ref erence range: 0.45 - 4 .70 mIU/L. The refe rence range was not u sed to interpret this result as normal/abnor mal. Lab Interpretation (test Normal code = 03987-1) [facility] [id number] 07:42:44 Test Item Value Reference Range Interpretation Comments TSH (test code = See_Comment [Automated message] 0091858112) The system [email or web address] generated this result transmitted ref erence range: 0.45 - 4 .70 mIU/L. The refe rence range was not u sed to interpret this result as normal/abnor mal. Lab Interpretation (test Normal code = 04893-4) [facility] METABOLIC PANEL (NA, K, CL, CO2, GLUCOSE, BUN, CREATININE, CA)2021-08-31 07:40:43 Test Item Value Reference Range Interpretation Comments NA (test code = 129 mmol/L 135-145 L 6880838409) K (test code = 3.8 mmol/L 3.5-5.0 Slight 8006407600) hemolysis CL (test code = 102 mmol/L 98-108 4004737206) CO2 TOTAL (test code 18 mmol/L 23-31 L = 9857725414) AGAP (test code = 2-16 5880497270) BUN (test code = 46 mg/dL 7-23 H Slight 4539957622) hemolysis GLUCOSE (test code = 100 mg/dL 70-110 8426396824) CREATININE (test code 1.72 mg/dL 0.60-1.25 H = 5966452309) CALCIUM (test code = 8.5 mg/dL 8.6-10.6 L 6894349901) eGFR (test code = mL/min/1.73m2 0577045492) GILBERTO (test code = GILBERTO) Association of [...] tests). Lab Interpretation Abnormal (test code = 96378-1) [facility] METABOLIC PANEL (NA, K, CL, CO2, GLUCOSE, BUN, CREATININE, CA)2021-08-31 07:40:43 Test Item Value Reference Range Interpretation Comments NA (test code = 129 mmol/L 135-145 L 0906314773) K (test code = 3.8 mmol/L 3.5-5.0 Slight 0979830861) hemolysis CL (test code = 102 mmol/L 98-108 8000628455) CO2 TOTAL (test code 18 mmol/L 23-31 L = 3661074345) AGAP (test code = 2-16 1607496379) BUN (test code = 46 mg/dL 7-23 H Slight 1682977950) hemolysis GLUCOSE (test code = 100 mg/dL 70-110 2474492604) CREATININE (test code 1.72 mg/dL 0.60-1.25 H = 4169809649) CALCIUM (test code = 8.5 mg/dL 8.6-10.6 L 1650930683) eGFR (test code = mL/min/1.73m2 2964878201) GILBERTO (test code = GILBERTO) Association of [...] tests). Lab Interpretation Abnormal (test code = 02691-3) [facility] AreaL[facility] Acid Whole [id number] 07:08:01 Test Item Value Reference Range Interpretation Comments LACTIC ACID (test code = 1.96 mmol/L 0.50-2.20 QUE S 9842196129) Lab Interpretation (test code = Normal 47599-3) [facility] [id number] 07:08:01 Test Item Value Reference Range Interpretation Comments LACTIC ACID (test code = 1.96 mmol/L 0.50-2.20 QUE S 7650718255) Lab Interpretation (test code = Normal 65526-4) [facility] AreaOSMOLALITY, SERUM OR [id number] 06:33:43 Test Item Value Reference Range Interpretation Comments OSMOLALITY (test code = See_Comment [Au tomated message] 0439128107) The system [email or web address] generated this result transmitted ref erence range: 278 - 30 5 mOsm/kg. The re ference range was not u sed to interpret this result as normal/abnor mal. Lab Interpretation (test Normal code = 45369-9) [facility] AreaOSMOLALITY, SERUM OR [id number] 06:33:43 Test Item Value Reference Range Interpretation Comments OSMOLALITY (test code = See_Comment [Au tomated message] 7858932411) The system [email or web address] generated this result transmitted ref erence range: 278 - 30 5 mOsm/kg. The re ference range was not u sed to interpret this result as normal/abnor mal. Lab Interpretation (test Normal code = 50104-9) [facility] AreaTROPONIN [id number] 04:28:44 Test Item Value Reference Interpretation Comments Range TROPONIN I (test 0.003 ng/mL See_Comment [Automated code = 9360848946) message] The system which generated this result [...] biotin. Lab Interpretation Normal (test code = 89580-4) [facility] [id number] 04:28:44 Test Item Value Reference Interpretation Comments Range TROPONIN I (test 0.003 ng/mL See_Comment [Automated code = 2608520935) message] The system which generated this result [...] biotin. Lab Interpretation Normal (test code = 85670-7) [facility] (NA, K, CL, CO2, GLUCOSE, BUN, CREATININE, CA)2021-08-31 04:07:42 Test Item Value Reference Range Interpretation Comments NA (test code = 125 mmol/L 135-145 L 2575164015) K (test code = 4.1 mmol/L 3.5-5.0 Slight 7907333076) hemolysis CL (test code = 100 mmol/L 98-108 9114923300) CO2 TOTAL (test code 17 mmol/L 23-31 L = 8627771910) AGAP (test code = 2-16 1186006155) BUN (test code = 52 mg/dL 7-23 H Slight 7774784522) hemolysis GLUCOSE (test code = 94 mg/dL 70-110 1697339423) CREATININE (test code 1.77 mg/dL 0.60-1.25 H = 7445544626) CALCIUM (test code = 8.2 mg/dL 8.6-10.6 L 3206877116) eGFR (test code = mL/min/1.73m2 4944772264) GILBERTO (test code = GILBERTO) Association of [...] tests). Lab Interpretation Abnormal (test code = 54047-4) [facility] METABOLIC PANEL (NA, K, CL, CO2, GLUCOSE, BUN, CREATININE, CA)2021-08-31 04:07:42 Test Item Value Reference Range Interpretation Comments NA (test code = 125 mmol/L 135-145 L 7532576088) K (test code = 4.1 mmol/L 3.5-5.0 Slight 8282562355) hemolysis CL (test code = 100 mmol/L 98-108 1348393258) CO2 TOTAL (test code 17 mmol/L 23-31 L = 8258247351) AGAP (test code = 2-16 5973986849) BUN (test code = 52 mg/dL 7-23 H Slight 1755990931) hemolysis GLUCOSE (test code = 94 mg/dL 70-110 9075449966) CREATININE (test code 1.77 mg/dL 0.60-1.25 H = 4213859884) CALCIUM (test code = 8.2 mg/dL 8.6-10.6 L 5389298627) eGFR (test code = mL/min/1.73m2 7241832172) GILBERTO (test code = GILBERTO) Association of [...] tests). Lab Interpretation Abnormal (test code = 82441-9) [facility] [id number] 00:22:59 Test Item Value Reference Interpretation Comments Range TROPONIN I (test 0.003 ng/mL See_Comment [Automated code = 8100912087) message] The system which generated this result [...] biotin. Lab Interpretation Normal (test code = 20411-7) [facility]N-TERMINAL [id number] 00:22:59 Test Item Value Reference Range Interpretation Comments NT-proBNP (test code 55 pg/mL See_Comment [Autom ated = 8112525394) message] The system which generated this result transmitted reference range : <=125. The reference range was not used to interpret this result as normal/abnormal . GILBERTO (test code = GILBERTO) Biotin has been reported to cause a negative bias, interpret results relative to patient's use of biotin. Lab Interpretation Normal (test code = 85725-9) [facility] [id number] 00:22:59 Test Item Value Reference Interpretation Comments Range TROPONIN I (test 0.003 ng/mL See_Comment [Automated code = 1372459575) message] The system which generated this result [...] biotin. Lab Interpretation Normal (test code = 16383-4) [facility] [id number] 00:22:59 Test Item Value Reference Range Interpretation Comments NT-proBNP (test code 55 pg/mL See_Comment [Autom ated = 3296361857) message] The system which generated this result transmitted reference range : <=125. The reference range was not used to interpret this result as normal/abnormal . GILBERTO (test code = GILBERTO) Biotin has been reported to cause a negative bias, interpret results relative to patient's use of biotin. Lab Interpretation Normal (test code = 52183-9) [facility] AreaCOMP. METABOLIC PANEL ([id number])2021-08-31 00:07:17 Test Item Value Reference Range Interpretation Comments NA (test code = 126 mmol/L 135-145 L 9338137585) K (test code = 4.3 mmol/L 3.5-5.0 Slight 4953131389) hemolysis CL (test code = 96 mmol/L 98-108 L 5725442945) CO2 TOTAL (test code 18 mmol/L 23-31 L = 3948962576) AGAP (test code = 2-16 1125433289) BUN (test code = 58 mg/dL 7-23 H Slight 9415028881) hemolysis GLUCOSE (test code = 108 mg/dL 70-110 8733766711) CREATININE (test code 2.11 mg/dL 0.60-1.25 H = 6368125850) TOTAL BILI (test code 0.7 mg/dL 0.1-1.1 = 4778584088) CALCIUM (test code = 9.2 mg/dL 8.6-10.6 7348750439) T PROTEIN (test code 7.6 g/dL 6.3-8.2 = 7560773230) ALBUMIN (test code = 4.9 g/dL 3.5-5.0 1856037904) ALK PHOS (test code = 96 U/L 34-122 Slight 6712448242) hemolysis ALTv (test code = 27 U/L 5-50 1742-6) AST(SGOT) (test code 46 U/L 13-40 H Slight = 6338718170) hemolysis eGFR (test code = mL/min/1.73m2 2276128930) GILBERTO (test code = GILBERTO) Association of [...] tests). Lab Interpretation Abnormal (test code = 01460-5) [facility]. METABOLIC PANEL ([id number])2021-08-31 00:07:17 Test Item Value Reference Range Interpretation Comments NA (test code = 126 mmol/L 135-145 L 8176217793) K (test code = 4.3 mmol/L 3.5-5.0 Slight 3258255605) hemolysis CL (test code = 96 mmol/L 98-108 L 8354283030) CO2 TOTAL (test code 18 mmol/L 23-31 L = 7609661965) AGAP (test code = 2-16 7742232649) BUN (test code = 58 mg/dL 7-23 H Slight 2053048735) hemolysis GLUCOSE (test code = 108 mg/dL 70-110 4238502635) CREATININE (test code 2.11 mg/dL 0.60-1.25 H = 3241019085) TOTAL BILI (test code 0.7 mg/dL 0.1-1.1 = 9278187322) CALCIUM (test code = 9.2 mg/dL 8.6-10.6 6673087381) T PROTEIN (test code 7.6 g/dL 6.3-8.2 = 7170928972) ALBUMIN (test code = 4.9 g/dL 3.5-5.0 4854050632) ALK PHOS (test code = 96 U/L 34-122 Slight 9701026085) hemolysis ALTv (test code = 27 U/L 5-50 1742-6) AST(SGOT) (test code 46 U/L 13-40 H Slight = 1286718526) hemolysis eGFR (test code = mL/min/1.73m2 0357526763) GILBERTO (test code = GILBERTO) Association of [...] tests). Lab Interpretation Abnormal (test code = 51350-6) [facility] WITH [id number] 23:36:10 Test Item Value Reference Range Interpretation [...] RDW-SD (test code = 41.7 fL 38.5-51.6 64774-7) RDW-CV (test code = 13.4 % 12.1-15.4 788-0) PLT (test code = See_Comment [Automated 777-3) message] The sy stem which generated this result transmitted reference range : 150 - 328 10*3/ ?L. The reference r meredith was not used to interpret this result as normal/abnormal . MPV (test code = 10.3 fL 9.8-13.0 71679-3) NRBC/100 WBC (test See_Comment [Automat ed code = 4466681478) message] The system which generated this result transmitted reference range : 0.0 - 10.0 /100 WBCs. The refer ence range was not u sed to interpret th is result as normal/abnormal . NRBC x10^3 (test code <0.01 See_Comment [Auto mated = 8713150808) message] The s ystem which generated this result transmitted reference range : 10*3/?L. The reference range was not used to interpret this result as normal/abnormal . GRAN MAT (NEUT) % 60.6 % (test code = 770-8) IMM GRAN % (test code 0.30 % = 2972505336) LYMPH % (test code = 29.1 % 736-9) MONO % (test code = 8.8 % 5905-5) EOS % (test code = 0.6 % 713-8) BASO % (test code = 0.6 % 706-2) GRAN MAT x10^3(ANC) 4.08 10*3/uL 1.99-6.95 (test code = 8099082375) IMM GRAN x10^3 (test <0.03 0.00-0.06 code = 9423897353) LYMPH x10^3 (test code 1.96 10*3/uL 1.09-3.23 = 731-0) MONO x10^3 (test code 0.59 10*3/uL 0.36-1.02 = 742-7) EOS x10^3 (test code = 0.04 10*3/uL 0.06-0.53 L 711-2) BASO x10^3 (test code 0.04 10*3/uL 0.01-0.09 = 704-7) Lab Interpretation Abnormal (test code = 84292-1) [facility] WITH [id number] 23:36:10 Test Item Value Reference Range Interpretation Comments WBC (test code = See_Comment [Automated 0690-2) message] The sy stem which generated this result transmitted reference range : 4.20 - 10.70 10*3/?L. The reference range was not used to interpret this result as normal/abnormal . RBC (test code = See_Comment [Automated 9-8) message] The sy stem which generated this [...] RDW-SD (test code = 41.7 fL 38.5-51.6 94787-1) RDW-CV (test code = 13.4 % 12.1-15.4 788-0) PLT (test code = See_Comment [Automated 777-3) message] The sy stem which generated this result transmitted reference range : 150 - 328 10*3/ ?L. The reference r meredith was not used to interpret this result as normal/abnormal . MPV (test code = 10.3 fL 9.8-13.0 23536-5) NRBC/100 WBC (test See_Comment [Automat ed code = 1826145528) message] The system which generated this result transmitted reference range : 0.0 - 10.0 /100 WBCs. The refer ence range was not u sed to interpret th is result as normal/abnormal . NRBC x10^3 (test code <0.01 See_Comment [Auto mated = 5860155111) message] The s ystem which generated this result transmitted reference range : 10*3/?L. The reference range was not used to interpret this result as normal/abnormal . GRAN MAT (NEUT) % 60.6 % (test code = 770-8) IMM GRAN % (test code 0.30 % = 2977197884) LYMPH % (test code = 29.1 % 736-9) MONO % (test code = 8.8 % 5905-5) EOS % (test code = 0.6 % 713-8) BASO % (test code = 0.6 % 706-2) GRAN MAT x10^3(ANC) 4.08 10*3/uL 1.99-6.95 (test code = 1125036434) IMM GRAN x10^3 (test <0.03 0.00-0.06 code = 4740577272) LYMPH x10^3 (test code 1.96 10*3/uL 1.09-3.23 = 731-0) MONO x10^3 (test code 0.59 10*3/uL 0.36-1.02 = 742-7) EOS x10^3 (test code = 0.04 10*3/uL 0.06-0.53 L 711-2) BASO x10^3 (test code 0.04 10*3/uL 0.01-0.09 = 704-7) Lab Interpretation Abnormal (test code = 27852-4) [facility] SCRE[facility] FOR GROUP [id number] 00:24:00 Test Item Value Reference Range Interpretation Comments POCT GP A STREP (test code = Negative Negative - Negative 67561-5) Lab Interpretation (test code = Normal 34846-3) [facility] AreaPREAL[facility]UMIN2021-12-13 11:38:43 Test Item Value Reference Range Interpretation Comments PALB (test code = 03532-3) 25.2 mg/dL 18.0-45.0 Lab Interpretation (test code = Normal 75883-1) [facility]OL[facility] PAN[facility] (NA, K, CL, CO2, GLUCOSE, BUN, CREATININE, CA)2021-08-05 11:30:59 Test Item Value Reference Range Interpretation Comments NA (test code = 140 mmol/L 135-145 1596604851) K (test code = 4.2 mmol/L 3.5-5.0 2783084754) CL (test code = 110 mmol/L 98-108 H 0854895677) CO2 TOTAL (test code = 27 mmol/L 23-31 1529666355) AGAP (test code = 2-16 4123871697) BUN (test code = 9 mg/dL 7-23 0586950824) GLUCOSE (test code = 86 mg/dL 70-110 0956911578) CREATININE (test code = 1.51 mg/dL 0.60-1.25 H 9247839794) CALCIUM (test code = 8.5 mg/dL 8.6-10.6 L 9519991570) eGFR (test code = mL/min/1.73m2 3772673340) GILBERTO (test code = GILBERTO) Association of [...] tests). Lab Interpretation Abnormal (test code = 96328-0) [facility]2021-12-13 11:30:59 Test Item Value Reference Range Interpretation Comments MAGNESIUM (test code = 0190829260) 2.0 mg/dL 1.7-2.4 Lab Interpretation (test code = Normal 70733-3) [facility] AreaPHOSPHORUS2021-12-13 11:30:59 Test Item Value Reference Range Interpretation Comments PHOSPHORUS (test code = 9739129079) 5.1 mg/dL 2.5-5.0 H Lab Interpretation (test code = Abnormal 79262-9) [facility]AL[facility]UMIN2021-[facility]-13 11:30:59 Test Item Value Reference Range Interpretation Comments ALBUMIN (test code = 1194115374) 3.1 g/dL 3.5-5.0 L Lab Interpretation (test code = Abnormal 58105-7) [facility] WITH [id number] 11:05:58 Test Item Value Reference Range Interpretation [...] RDW-SD (test code = 47.5 fL 38.5-51.6 35769-4) RDW-CV (test code = 14.0 % 12.1-15.4 788-0) PLT (test code = See_Comment [Automated 777-3) message] The sy stem which generated this result transmitted reference range : 150 - 328 10*3/ ?L. The reference r meredith was not used to interpret this result as normal/abnormal . MPV (test code = 9.5 fL 9.8-13.0 L 85777-8) NRBC/100 WBC (test See_Comment [Automat ed code = 6806648641) message] The system which generated this result transmitted reference range : 0.0 - 10.0 /100 WBCs. The refer ence range was not u sed to interpret th is result as normal/abnormal . NRBC x10^3 (test code <0.01 See_Comment [Auto mated = 0981253800) message] The s ystem which generated this result transmitted reference range : 10*3/?L. The reference range was not used to interpret this result as normal/abnormal . GRAN MAT (NEUT) % 52.5 % (test code = 770-8) IMM GRAN % (test code 0.30 % = 1702517755) LYMPH % (test code = 31.1 % 736-9) MONO % (test code = 11.7 % 5905-5) EOS % (test code = 3.9 % 713-8) BASO % (test code = 0.5 % 706-2) GRAN MAT x10^3(ANC) 2.03 10*3/uL 1.99-6.95 (test code = 6963018414) IMM GRAN x10^3 (test <0.03 0.00-0.06 code = 2610692962) LYMPH x10^3 (test code 1.20 10*3/uL 1.09-3.23 = 731-0) MONO x10^3 (test code 0.45 10*3/uL 0.36-1.02 = 742-7) EOS x10^3 (test code = 0.15 10*3/uL 0.06-0.53 711-2) BASO x10^3 (test code <0.03 0.01-0.09 = 704-7) Lab Interpretation Abnormal (test code = 44663-9) [facility] WITH [id number] 12:30:17 Test Item Value Reference Range Interpretation [...] RDW-SD (test code = 49.2 fL 38.5-51.6 54986-7) RDW-CV (test code = 14.3 % 12.1-15.4 788-0) PLT (test code = See_Comment [Automated 777-3) message] The sy stem which generated this result transmitted reference range : 150 - 328 10*3/ ?L. The reference r meredith was not used to interpret this result as normal/abnormal . MPV (test code = 9.2 fL 9.8-13.0 L 20117-3) NRBC/100 WBC (test See_Comment [Automat ed code = 0268744515) message] The system which generated this result transmitted reference range : 0.0 - 10.0 /100 WBCs. The refer ence range was not u sed to interpret th is result as normal/abnormal . NRBC x10^3 (test code <0.01 See_Comment [Auto mated = 7718194177) message] The s ystem which generated this result transmitted reference range : 10*3/?L. The reference range was not used to interpret this result as normal/abnormal . GRAN MAT (NEUT) % 47.2 % (test code = 770-8) IMM GRAN % (test code 0.30 % = 8208275871) LYMPH % (test code = 36.0 % 736-9) MONO % (test code = 12.6 % 5905-5) EOS % (test code = 3.4 % 713-8) BASO % (test code = 0.5 % 706-2) GRAN MAT x10^3(ANC) 1.80 10*3/uL 1.99-6.95 L (test code = 4434432703) IMM GRAN x10^3 (test <0.03 0.00-0.06 code = 0279082899) LYMPH x10^3 (test code 1.37 10*3/uL 1.09-3.23 = 731-0) MONO x10^3 (test code 0.48 10*3/uL 0.36-1.02 = 742-7) EOS x10^3 (test code = 0.13 10*3/uL 0.06-0.53 711-2) BASO x10^3 (test code <0.03 0.01-0.09 = 704-7) Lab Interpretation Abnormal (test code = 04473-4) [facility] METABOLIC PANEL (NA, K, CL, CO2, GLUCOSE, BUN, CREATININE, CA)2021-08-04 12:17:48 Test Item Value Reference Range Interpretation Comments NA (test code = 139 mmol/L 135-145 [id number]) K (test code = 4.3 mmol/L 3.5-5.0 1691870111) CL (test code = 110 mmol/L 98-108 H 1161909846) CO2 TOTAL (test code = 26 mmol/L 23-31 9941448882) AGAP (test code = 2-16 2809461520) BUN (test code = 8 mg/dL 7-23 8345014206) GLUCOSE (test code = 87 mg/dL 70-110 1472862895) CREATININE (test code = 1.50 mg/dL 0.60-1.25 H 8295155187) CALCIUM (test code = 8.4 mg/dL 8.6-10.6 L 7273165387) eGFR (test code = mL/min/1.73m2 9520973544) GILBERTO (test code = GILBERTO) Association of [...] tests). Lab Interpretation Abnormal (test code = 85490-0) [facility] Test Item Value Reference Range Interpretation Comments MAGNESIUM (test code = 0415026806) 1.9 mg/dL 1.7-2.4 Lab Interpretation (test code = Normal 47773-6) [facility] 12:17:48 Test Item Value Reference Range Interpretation Comments PHOSPHORUS (test code = 8328586370) 4.6 mg/dL 2.5-5.0 Lab Interpretation (test code = Normal 43214-2) [facility] WITH [id number] 11:23:38 Test Item Value Reference Range Interpretation [...] RDW-SD (test code = 47.8 fL 38.5-51.6 17191-2) RDW-CV (test code = 14.1 % 12.1-15.4 788-0) PLT (test code = See_Comment [Automated 777-3) message] The sy stem which generated this result transmitted reference range : 150 - 328 10*3/ ?L. The reference r meredith was not used to interpret this result as normal/abnormal . MPV (test code = 9.3 fL 9.8-13.0 L 29277-4) NRBC/100 WBC (test See_Comment [Automat ed code = 1773087784) message] The system which generated this result transmitted reference range : 0.0 - 10.0 /100 WBCs. The refer ence range was not u sed to interpret th is result as normal/abnormal . NRBC x10^3 (test code <0.01 See_Comment [Auto mated = 0667268731) message] The s ystem which generated this result transmitted reference range : 10*3/?L. The reference range was not used to interpret this result as normal/abnormal . GRAN MAT (NEUT) % 49.3 % (test code = 770-8) IMM GRAN % (test code 0.30 % = 5940631515) LYMPH % (test code = 34.6 % 736-9) MONO % (test code = 12.0 % 5905-5) EOS % (test code = 3.3 % 713-8) BASO % (test code = 0.5 % 706-2) GRAN MAT x10^3(ANC) 1.97 10*3/uL 1.99-6.95 L (test code = 0284837177) IMM GRAN x10^3 (test <0.03 0.00-0.06 code = 0289653029) LYMPH x10^3 (test code 1.38 10*3/uL 1.09-3.23 = 731-0) MONO x10^3 (test code 0.48 10*3/uL 0.36-1.02 = 742-7) EOS x10^3 (test code = 0.13 10*3/uL 0.06-0.53 711-2) BASO x10^3 (test code <0.03 0.01-0.09 = 704-7) Lab Interpretation Abnormal (test code = 98752-9) [facility] METABOLIC PANEL (NA, K, CL, CO2, GLUCOSE, BUN, CREATININE, CA)2021-08-03 11:18:55 Test Item Value Reference Range Interpretation Comments NA (test code = 139 mmol/L 135-145 3399415945) K (test code = 4.1 mmol/L 3.5-5.0 1149978398) CL (test code = 110 mmol/L 98-108 H 8192053203) CO2 TOTAL (test code = 27 mmol/L 23-31 7212501065) AGAP (test code = 2-16 8264187578) BUN (test code = 8 mg/dL 7-23 8786454328) GLUCOSE (test code = 93 mg/dL 70-110 6448309825) CREATININE (test code = 1.39 mg/dL 0.60-1.25 H 1977788211) CALCIUM (test code = 8.1 mg/dL 8.6-10.6 L 0814782365) eGFR (test code = mL/min/1.73m2 6704387509) GILBERTO (test code = GILBERTO) Association of [...] tests). Lab Interpretation Abnormal (test code = 46404-3) [facility] 11:18:55 Test Item Value Reference Range Interpretation Comments MAGNESIUM (test code = 4665275569) 2.0 mg/dL 1.7-2.4 Lab Interpretation (test code = Normal 31684-3) [facility] 11:18:55 Test Item Value Reference Range Interpretation Comments PHOSPHORUS (test code = 2193297008) 3.8 mg/dL 2.5-5.0 Lab Interpretation (test code = Normal 69388-8) [facility] (NA, K, CL, CO2, GLUCOSE, BUN, CREATININE, CA)2021-08-02 14:06:51 Test Item Value Reference Range Interpretation Comments NA (test code = 137 mmol/L 135-145 6830580979) K (test code = 4.4 mmol/L 3.5-5.0 6591463960) CL (test code = 108 mmol/L 98-108 5154655907) CO2 TOTAL (test code = 24 mmol/L 23-31 1471934441) AGAP (test code = 2-16 9238217059) BUN (test code = 10 mg/dL 7-23 6862983183) GLUCOSE (test code = 83 mg/dL 70-110 2091744404) CREATININE (test code = 1.48 mg/dL 0.60-1.25 H 2190854611) CALCIUM (test code = 8.4 mg/dL 8.6-10.6 L 8955490655) eGFR (test code = mL/min/1.73m2 6550702509) GILBERTO (test code = GILBERTO) Association of [...] tests). Lab Interpretation Abnormal (test code = 80806-7) [facility]-10 14:06:51 Test Item Value Reference Range Interpretation Comments MAGNESIUM (test code = 5213988663) 2.1 mg/dL 1.7-2.4 Lab Interpretation (test code = Normal 15632-4) [facility] 14:06:51 Test Item Value Reference Range Interpretation Comments PHOSPHORUS (test code = 1236682612) 4.6 mg/dL 2.5-5.0 Lab Interpretation (test code = Normal 65280-1) [facility] [id number] 12:30:05 Test Item Value Reference Range Interpretation [...] RDW-SD (test code = 48.6 fL 38.5-51.6 89279-3) RDW-CV (test code = 14.3 % 12.1-15.4 788-0) PLT (test code = See_Comment [Automated 777-3) message] The sy stem which generated this result transmitted reference range : 150 - 328 10*3/ ?L. The reference r meredith was not used to interpret this result as normal/abnormal . MPV (test code = 10.0 fL 9.8-13.0 85023-2) NRBC/100 WBC (test See_Comment [Automat ed code = 2876495918) message] The system which generated this result transmitted reference range : 0.0 - 10.0 /100 WBCs. The refer ence range was not u sed to interpret th is result as normal/abnormal . NRBC x10^3 (test code <0.01 See_Comment [Auto mated = 2086607547) message] The s ystem which generated this result transmitted reference range : 10*3/?L. The reference range was not used to interpret this result as normal/abnormal . GRAN MAT (NEUT) % 51.9 % (test code = 770-8) IMM GRAN % (test code 0.60 % = 8376819966) LYMPH % (test code = 32.7 % 736-9) MONO % (test code = 11.3 % 5905-5) EOS % (test code = 3.2 % 713-8) BASO % (test code = 0.3 % 706-2) GRAN MAT x10^3(ANC) 1.80 10*3/uL 1.99-6.95 L (test code = 2496821121) IMM GRAN x10^3 (test <0.03 0.00-0.06 code = 9731932330) LYMPH x10^3 (test code 1.13 10*3/uL 1.09-3.23 = 731-0) MONO x10^3 (test code 0.39 10*3/uL 0.36-1.02 = 742-7) EOS x10^3 (test code = 0.11 10*3/uL 0.06-0.53 711-2) BASO x10^3 (test code <0.03 0.01-0.09 = 704-7) Lab Interpretation Abnormal (test code = 56671-4) [facility] WITH [id number] 10:44:18 Test Item Value Reference Range Interpretation [...] RDW-SD (test code = 48.0 fL 38.5-51.6 49003-2) RDW-CV (test code = 14.1 % 12.1-15.4 788-0) PLT (test code = See_Comment [Automated 777-3) message] The sy stem which generated this result transmitted reference range : 150 - 328 10*3/ ?L. The reference r meredith was not used to interpret this result as normal/abnormal . MPV (test code = 9.5 fL 9.8-13.0 L 87468-5) NRBC/100 WBC (test See_Comment [Automat ed code = 7980770765) message] The system which generated this result transmitted reference range : 0.0 - 10.0 /100 WBCs. The refer ence range was not u sed to interpret th is result as normal/abnormal . NRBC x10^3 (test code <0.01 See_Comment [Auto mated = 0303451922) message] The s ystem which generated this result transmitted reference range : 10*3/?L. The reference range was not used to interpret this result as normal/abnormal . GRAN MAT (NEUT) % 50.8 % (test code = 770-8) IMM GRAN % (test code 0.30 % = 0888051417) LYMPH % (test code = 34.6 % 736-9) MONO % (test code = 10.3 % 5905-5) EOS % (test code = 3.7 % 713-8) BASO % (test code = 0.3 % 706-2) GRAN MAT x10^3(ANC) 1.78 10*3/uL 1.99-6.95 L (test code = 1647791341) IMM GRAN x10^3 (test <0.03 0.00-0.06 code = 9550610839) LYMPH x10^3 (test code 1.21 10*3/uL 1.09-3.23 = 731-0) MONO x10^3 (test code 0.36 10*3/uL 0.36-1.02 = 742-7) EOS x10^3 (test code = 0.13 10*3/uL 0.06-0.53 711-2) BASO x10^3 (test code <0.03 0.01-0.09 = 704-7) Lab Interpretation Abnormal (test code = 68709-3) [facility] METABOLIC PANEL (NA, K, CL, CO2, GLUCOSE, BUN, CREATININE, CA)2021-08-01 10:25:17 Test Item Value Reference Range Interpretation Comments NA (test code = 138 mmol/L 135-145 9974238943) K (test code = 4.1 mmol/L 3.5-5.0 5138110044) CL (test code = 105 mmol/L 98-108 2838120358) CO2 TOTAL (test code = 28 mmol/L 23-31 2759842626) AGAP (test code = 2-16 4571567425) BUN (test code = 13 mg/dL 7-23 3382365167) GLUCOSE (test code = 86 mg/dL 70-110 3057277056) CREATININE (test code = 1.46 mg/dL 0.60-1.25 H 4640944090) CALCIUM (test code = 8.7 mg/dL 8.6-10.6 4287112645) eGFR (test code = mL/min/1.73m2 5022129506) GILBERTO (test code = GILBERTO) Association of [...] tests). Lab Interpretation Abnormal (test code = 50662-4) [facility] 10:25:17 Test Item Value Reference Range Interpretation Comments MAGNESIUM (test code = 2474059852) 1.6 mg/dL 1.7-2.4 L Lab Interpretation (test code = Abnormal 45040-5) [facility]21-[facility]-09 10:25:17 Test Item Value Reference Range Interpretation Comments PHOSPHORUS (test code = 5494896873) 4.1 mg/dL 2.5-5.0 Lab Interpretation (test code = Normal 27282-2) [facility]2021-[facility]-08 16:18:34 Test Item Value Reference Range Interpretation Comments PALB (test code = 06217-8) 24.3 mg/dL 18.0-45.0 Lab Interpretation (test code = Normal 99963-3) [facility] WITH [id number] 11:20:19 Test Item Value Reference Range Interpretation [...] RDW-SD (test code = 49.6 fL 38.5-51.6 16458-9) RDW-CV (test code = 14.6 % 12.1-15.4 788-0) PLT (test code = See_Comment [Automated 777-3) message] The sy stem which generated this result transmitted reference range : 150 - 328 10*3/ ?L. The reference r meredith was not used to interpret this result as normal/abnormal . MPV (test code = 9.6 fL 9.8-13.0 L 85176-5) NRBC/100 WBC (test See_Comment [Automat ed code = 0044203327) message] The system which generated this result transmitted reference range : 0.0 - 10.0 /100 WBCs. The refer ence range was not u sed to interpret th is result as normal/abnormal . NRBC x10^3 (test code <0.01 See_Comment [Auto mated = 4587841190) message] The s ystem which generated this result transmitted reference range : 10*3/?L. The reference range was not used to interpret this result as normal/abnormal . GRAN MAT (NEUT) % 49.1 % (test code = 770-8) IMM GRAN % (test code 0.30 % = 0699171317) LYMPH % (test code = 36.0 % 736-9) MONO % (test code = 10.6 % 5905-5) EOS % (test code = 3.4 % 713-8) BASO % (test code = 0.6 % 706-2) GRAN MAT x10^3(ANC) 1.76 10*3/uL 1.99-6.95 L (test code = 1707187338) IMM GRAN x10^3 (test <0.03 0.00-0.06 code = 4716532117) LYMPH x10^3 (test code 1.29 10*3/uL 1.09-3.23 = 731-0) MONO x10^3 (test code 0.38 10*3/uL 0.36-1.02 = 742-7) EOS x10^3 (test code = 0.12 10*3/uL 0.06-0.53 711-2) BASO x10^3 (test code <0.03 0.01-0.09 = 704-7) Lab Interpretation Abnormal (test code = 42861-2) [facility] (NA, K, CL, CO2, GLUCOSE, BUN, CREATININE, CA)2021-07-31 11:11:17 Test Item Value Reference Range Interpretation Comments NA (test code = 135 mmol/L 135-145 8734563079) K (test code = 3.8 mmol/L 3.5-5.0 7301456067) CL (test code = 108 mmol/L 98-108 7899402394) CO2 TOTAL (test code = 24 mmol/L 23-31 4184228205) AGAP (test code = 2-16 0166112037) BUN (test code = 13 mg/dL 7-23 9496318732) GLUCOSE (test code = 88 mg/dL 70-110 4473102062) CREATININE (test code = 1.32 mg/dL 0.60-1.25 H 2646435027) CALCIUM (test code = 8.4 mg/dL 8.6-10.6 L 3944885873) eGFR (test code = mL/min/1.73m2 3792570951) GILBERTO (test code = GILBERTO) Association of [...] tests). Lab Interpretation Abnormal (test code = 71756-5) [facility] 11:11:17 Test Item Value Reference Range Interpretation Comments MAGNESIUM (test code = 6747847580) 1.8 mg/dL 1.7-2.4 Lab Interpretation (test code = Normal 61055-1) [facility]2021-[facility]-08 11:11:17 Test Item Value Reference Range Interpretation Comments PHOSPHORUS (test code = 1281366731) 4.0 mg/dL 2.5-5.0 Lab Interpretation (test code = Normal 81591-5) [facility] MET[facility]OL[facility] (60250)2021-07-30 03:46:32 Test Item Value Reference Range Interpretation Comments NA (test code = 132 mmol/L 135-145 L 5126278857) K (test code = 4.4 mmol/L 3.5-5.0 1664820297) CL (test code = 102 mmol/L 98-108 8393298045) CO2 TOTAL (test code = 24 mmol/L 23-31 2149526495) AGAP (test code = 2-16 7325163958) BUN (test code = 21 mg/dL 7-23 7354542855) GLUCOSE (test code = 95 mg/dL 70-110 9833287451) CREATININE (test code = 1.76 mg/dL 0.60-1.25 H 7034293600) TOTAL BILI (test code = 0.7 mg/dL 0.1-1.4 1398077586) CALCIUM (test code = 8.8 mg/dL 8.6-10.6 5284826227) T PROTEIN (test code = 6.0 g/dL 6.3-8.2 L 5338160876) ALBUMIN (test code = 3.8 g/dL 3.5-5.0 5764999328) ALK PHOS (test code = 67 U/L 34-122 6711618699) ALTv (test code = 47 U/L 5-50 1742-6) AST(SGOT) (test code = 39 U/L 13-40 5248241302) eGFR (test code = mL/min/1.73m2 6856903939) GILBERTO (test code = GILBERTO) Association of [...] tests). Lab Interpretation Abnormal (test code = 77536-7) [facility] 03:19:26 Test Item Value Reference Range Interpretation Comments LIPASE (test code = 6264245431) 58 U/L 0-220 Lab Interpretation (test code = Normal 79030-0) [facility] WITH [id number] 03:07:20 Test Item Value Reference Range Interpretation [...] RDW-SD (test code = 47.4 fL 38.5-51.6 08336-5) RDW-CV (test code = 14.2 % 12.1-15.4 788-0) PLT (test code = See_Comment [Automated 777-3) message] The sy stem which generated this result transmitted reference range : 150 - 328 10*3/ ?L. The reference r meredith was not used to interpret this result as normal/abnormal . MPV (test code = 9.9 fL 9.8-13.0 95936-5) NRBC/100 WBC (test See_Comment [Automat ed code = 0253297827) message] The system which generated this result transmitted reference range : 0.0 - 10.0 /100 WBCs. The refer ence range was not u sed to interpret th is result as normal/abnormal . NRBC x10^3 (test code <0.01 See_Comment [Auto mated = 7973620157) message] The s ystem which generated this result transmitted reference range : 10*3/?L. The reference range was not used to interpret this result as normal/abnormal . GRAN MAT (NEUT) % 61.1 % (test code = 770-8) IMM GRAN % (test code 0.20 % = 8668093769) LYMPH % (test code = 24.4 % 736-9) MONO % (test code = 11.8 % 5905-5) EOS % (test code = 2.2 % 713-8) BASO % (test code = 0.3 % 706-2) GRAN MAT x10^3(ANC) 3.98 10*3/uL 1.99-6.95 (test code = 8869546444) IMM GRAN x10^3 (test <0.03 0.00-0.06 code = 4763084565) LYMPH x10^3 (test code 1.59 10*3/uL 1.09-3.23 = 731-0) MONO x10^3 (test code 0.77 10*3/uL 0.36-1.02 = 742-7) EOS x10^3 (test code = 0.14 10*3/uL 0.06-0.53 711-2) BASO x10^3 (test code <0.03 0.01-0.09 = 704-7) Lab Interpretation Abnormal (test code = 37347-2) [facility] Whole [id number] 03:00:47 Test Item Value Reference Range Interpretation Comments LACTIC ACID (test code = 1.45 mmol/L 0.50-2.20 QUE S 2707018564) Lab Interpretation (test code = Normal 37117-0) [facility] METABOLIC [id number] 11:51:00 Test Item Value Reference Range Interpretation [...] Units/L 50.0-136.0 N code = ALKP) PROTHROMBIN [id number] 11:41:00 Test Item Value Reference Range Interpretation Comments PROTHROMBIN TIME 10.9 SECONDS 9.9-12.8 N PATIENT (test code = PTP) INTERNATIONAL NORMAL 0.9 0.89-1.14 N THE INR IS TO BE USED RATIO (test code = ONLY FOR MONITORING INR) ORAL ANTICOAGULANTTH ERAPY. THE FOLLOWING A RE SUGGESTED RANGE S FROM [facility]:ROOPA CATION INR VALUEPROPHY [...] D ANTIBODIES 2.5 - 3.5 CBC W/AUTO [id number] 11:36:00 Test Item Value Reference Range Interpretation [...] NA (test code = 137 mmol/L 135-145 2063001848) K (test code = 4.2 mmol/L 3.5-5.0 4621815884) CL (test code = 109 mmol/L 98-108 H 4224776859) CO2 TOTAL (test code = 25 mmol/L 23-31 6382584516) AGAP (test code = 2-16 6754901722) BUN (test code = 11 mg/dL 7-23 2418303495) GLUCOSE (test code = 83 mg/dL 70-110 7945449712) CREATININE (test code = 1.40 mg/dL 0.60-1.25 H 9078334469) CALCIUM (test code = 8.6 mg/dL 8.6-10.6 1530108825) eGFR (test code = mL/min/1.73m2 8949152442) GILBERTO (test code = GILBERTO) Association of [...] tests). Lab Interpretation Abnormal (test code = 51666-2) [facility] 13:15:26 Test Item Value Reference Range Interpretation Comments MAGNESIUM (test code = 5366000985) 1.6 mg/dL 1.7-2.4 L Lab Interpretation (test code = Abnormal 46318-9) [facility] 13:15:26 Test Item Value Reference Range Interpretation Comments PHOSPHORUS (test code = 2745115607) 3.5 mg/dL 2.5-5.0 Lab Interpretation (test code = Normal 94071-4) [facility] WITH [id number] 12:50:41 Test Item Value Reference Range Interpretation [...] RDW-SD (test code = 46.7 fL 38.5-51.6 03738-8) RDW-CV (test code = 14.3 % 12.1-15.4 788-0) PLT (test code = See_Comment [Automated 777-3) message] The sy stem which generated this result transmitted reference range : 150 - 328 10*3/ ?L. The reference r meredith was not used to interpret this result as normal/abnormal . MPV (test code = 9.6 fL 9.8-13.0 L 31059-6) NRBC/100 WBC (test See_Comment [Automat ed code = 2228046336) message] The system which generated this result transmitted reference range : 0.0 - 10.0 /100 WBCs. The refer ence range was not u sed to interpret th is result as normal/abnormal . NRBC x10^3 (test code <0.01 See_Comment [Auto mated = 2186053971) message] The s ystem which generated this result transmitted reference range : 10*3/?L. The reference range was not used to interpret this result as normal/abnormal . GRAN MAT (NEUT) % 52.7 % (test code = 770-8) IMM GRAN % (test code 0.40 % = 8526569593) LYMPH % (test code = 33.7 % 736-9) MONO % (test code = 10.4 % 5905-5) EOS % (test code = 2.4 % 713-8) BASO % (test code = 0.4 % 706-2) GRAN MAT x10^3(ANC) 2.65 10*3/uL 1.99-6.95 (test code = 9416296451) IMM GRAN x10^3 (test <0.03 0.00-0.06 code = 1962906383) LYMPH x10^3 (test code 1.69 10*3/uL 1.09-3.23 = 731-0) MONO x10^3 (test code 0.52 10*3/uL 0.36-1.02 = 742-7) EOS x10^3 (test code = 0.12 10*3/uL 0.06-0.53 711-2) BASO x10^3 (test code <0.03 0.01-0.09 = 704-7) Lab Interpretation Abnormal (test code = 75506-1) [facility]59 Test Item Value Reference Range Interpretation Comments MAGNESIUM (test code = 6093039722) 1.6 mg/dL 1.7-2.4 L Lab Interpretation (test code = Abnormal 45832-9) [facility] 12:35:59 Test Item Value Reference Range Interpretation Comments PHOSPHORUS (test code = 5604992012) 4.0 mg/dL 2.5-5.0 Lab Interpretation (test code = Normal 85572-3) [facility] (NA, K, CL, CO2, GLUCOSE, BUN, CREATININE, CA)2021-07-25 12:09:12 Test Item Value Reference Range Interpretation Comments NA (test code = 139 mmol/L 135-145 9229200053) K (test code = 4.1 mmol/L 3.5-5.0 7087924259) CL (test code = 111 mmol/L 98-108 H 0564256198) CO2 TOTAL (test code = 25 mmol/L 23-31 0164893440) AGAP (test code = 2-16 1383700505) BUN (test code = 13 mg/dL 7-23 6904464794) GLUCOSE (test code = 86 mg/dL 70-110 4247305393) CREATININE (test code = 1.43 mg/dL 0.60-1.25 H 8617641360) CALCIUM (test code = 8.4 mg/dL 8.6-10.6 L 2353791671) eGFR (test code = mL/min/1.73m2 3045457017) GILBERTO (test code = GILBERTO) Association of [...] tests). Lab Interpretation Abnormal (test code = 12481-0) [facility] WITH [id number] 11:44:33 Test Item Value Reference Range Interpretation [...] RDW-SD (test code = 48.9 fL 38.5-51.6 16142-6) RDW-CV (test code = 14.3 % 12.1-15.4 788-0) PLT (test code = See_Comment [Automated 777-3) message] The sy stem which generated this result transmitted reference range : 150 - 328 10*3/ ?L. The reference r meredith was not used to interpret this result as normal/abnormal . MPV (test code = 9.6 fL 9.8-13.0 L 92834-8) NRBC/100 WBC (test See_Comment [Automat ed code = 2847488840) message] The system which generated this result transmitted reference range : 0.0 - 10.0 /100 WBCs. The refer ence range was not u sed to interpret th is result as normal/abnormal . NRBC x10^3 (test code <0.01 See_Comment [Auto mated = 3135388253) message] The s ystem which generated this result transmitted reference range : 10*3/?L. The reference range was not used to interpret this result as normal/abnormal . GRAN MAT (NEUT) % 50.0 % (test code = 770-8) IMM GRAN % (test code 0.20 % = 2743044234) LYMPH % (test code = 36.7 % 736-9) MONO % (test code = 10.0 % 5905-5) EOS % (test code = 2.6 % 713-8) BASO % (test code = 0.5 % 706-2) GRAN MAT x10^3(ANC) 2.11 10*3/uL 1.99-6.95 (test code = 9303909361) IMM GRAN x10^3 (test <0.03 0.00-0.06 code = 4623292463) LYMPH x10^3 (test code 1.55 10*3/uL 1.09-3.23 = 731-0) MONO x10^3 (test code 0.42 10*3/uL 0.36-1.02 = 742-7) EOS x10^3 (test code = 0.11 10*3/uL 0.06-0.53 711-2) BASO x10^3 (test code <0.03 0.01-0.09 = 704-7) Lab Interpretation Abnormal (test code = 49016-6) [facility] WITH [id number] 04:23:56 Test Item Value Reference Range Interpretation [...] RDW-SD (test code = 49.0 fL 38.5-51.6 77325-5) RDW-CV (test code = 14.4 % 12.1-15.4 788-0) PLT (test code = See_Comment [Automated 777-3) message] The sy stem which generated this result transmitted reference range : 150 - 328 10*3/ ?L. The reference r meredith was not used to interpret this result as normal/abnormal . MPV (test code = 9.5 fL 9.8-13.0 L 03577-2) NRBC/100 WBC (test See_Comment [Automat ed code = 7112953650) message] The system which generated this result transmitted reference range : 0.0 - 10.0 /100 WBCs. The refer ence range was not u sed to interpret th is result as normal/abnormal . NRBC x10^3 (test code <0.01 See_Comment [Auto mated = 7358950075) message] The s ystem which generated this result transmitted reference range : 10*3/?L. The reference range was not used to interpret this result as normal/abnormal . GRAN MAT (NEUT) % 49.9 % (test code = 770-8) IMM GRAN % (test code 0.20 % = [id number]) LYMPH % (test code = 35.2 % 736-9) MONO % (test code = 11.7 % 5905-5) EOS % (test code = 2.4 % 713-8) BASO % (test code = 0.6 % 706-2) GRAN MAT x10^3(ANC) 2.31 10*3/uL 1.99-6.95 (test code = 1979996692) IMM GRAN x10^3 (test <0.03 0.00-0.06 code = 2560175055) LYMPH x10^3 (test code 1.63 10*3/uL 1.09-3.23 = 731-0) MONO x10^3 (test code 0.54 10*3/uL 0.36-1.02 = 742-7) EOS x10^3 (test code = 0.11 10*3/uL 0.06-0.53 711-2) BASO x10^3 (test code 0.03 10*3/uL 0.01-0.09 = 704-7) Lab Interpretation Abnormal (test code = 06024-8) [facility] METABOLIC PANEL (NA, K, CL, CO2, GLUCOSE, BUN, CREATININE, CA)2021-07-24 12:55:24 Test Item Value Reference Range Interpretation Comments NA (test code = 135 mmol/L 135-145 3496174586) K (test code = 4.0 mmol/L 3.5-5.0 8747182851) CL (test code = 109 mmol/L 98-108 H 9024662892) CO2 TOTAL (test code = 22 mmol/L 23-31 L 7159208977) AGAP (test code = 2-16 6779532987) BUN (test code = 12 mg/dL 7-23 8770306804) GLUCOSE (test code = 102 mg/dL 70-110 5921960245) CREATININE (test code = 1.27 mg/dL 0.60-1.25 H 7753308790) CALCIUM (test code = 8.6 mg/dL 8.6-10.6 5979109210) eGFR (test code = mL/min/1.73m2 1084336732) GILBERTO (test code = GILBERTO) Association of [...] tests). Lab Interpretation Abnormal (test code = 88066-5) [facility] Test Item Value Reference Range Interpretation Comments MAGNESIUM (test code = 3424230147) 1.7 mg/dL 1.7-2.4 Lab Interpretation (test code = Normal 73945-5) [facility]24 Test Item Value Reference Range Interpretation Comments PHOSPHORUS (test code = 3969098178) 3.1 mg/dL 2.5-5.0 Lab Interpretation (test code = Normal 34235-2) [facility] (NA, K, CL, CO2, Glucose, BUN, Creatinine, CA)2021-07-23 13:27:55 Test Item Value Reference Range Interpretation Comments NA (test code = 134 mmol/L 135-145 L 6852132204) K (test code = 3.8 mmol/L 3.5-5.0 5801871050) CL (test code = 107 mmol/L 98-108 3595867948) CO2 TOTAL (test code = 21 mmol/L 23-31 L 1831043975) AGAP (test code = 2-16 5086414500) BUN (test code = 18 mg/dL 7-23 4913818257) GLUCOSE (test code = 120 mg/dL 70-110 H 6746750530) CREATININE (test code = 1.46 mg/dL 0.60-1.25 H 0995185003) CALCIUM (test code = 8.7 mg/dL 8.6-10.6 5499754795) eGFR (test code = mL/min/1.73m2 1366972965) GILBERTO (test code = GILBERTO) Association of [...] tests). Lab Interpretation Abnormal (test code = 69099-8) [facility] Test Item Value Reference Range Interpretation Comments MAGNESIUM (test code = 9203060606) 1.9 mg/dL 1.7-2.4 Lab Interpretation (test code = Normal 42428-5) [facility] 13:27:55 Test Item Value Reference Range Interpretation Comments PHOSPHORUS (test code = 8315356883) 3.5 mg/dL 2.5-5.0 Lab Interpretation (test code = Normal 67201-3) [facility] with Qwfgpmhgsxyi2731-12-72 13:06:55 Test Item Value Reference Range Interpretation [...] RDW-SD (test code = 47.8 fL 38.5-51.6 20287-0) RDW-CV (test code = 14.4 % 12.1-15.4 788-0) PLT (test code = See_Comment [Automated 777-3) message] The sy stem which generated this result transmitted reference range : 150 - 328 10*3/ ?L. The reference r meredith was not used to interpret this result as normal/abnormal . MPV (test code = 9.4 fL 9.8-13.0 L 22197-9) NRBC/100 WBC (test See_Comment [Automat ed code = 8172434630) message] The system which generated this result transmitted reference range : 0.0 - 10.0 /100 WBCs. The refer ence range was not u sed to interpret th is result as normal/abnormal . NRBC x10^3 (test code <0.01 See_Comment [Auto mated = 9616363328) message] The s ystem which generated this result transmitted reference range : 10*3/?L. The reference range was not used to interpret this result as normal/abnormal . GRAN MAT (NEUT) % 54.7 % (test code = 770-8) IMM GRAN % (test code 0.40 % = 6906199536) LYMPH % (test code = 33.3 % 736-9) MONO % (test code = 9.4 % 5905-5) EOS % (test code = 1.8 % 713-8) BASO % (test code = 0.4 % 706-2) GRAN MAT x10^3(ANC) 2.78 10*3/uL 1.99-6.95 (test code = 4755090125) IMM GRAN x10^3 (test <0.03 0.00-0.06 code = 2355022054) LYMPH x10^3 (test code 1.69 10*3/uL 1.09-3.23 = 731-0) MONO x10^3 (test code 0.48 10*3/uL 0.36-1.02 = 742-7) EOS x10^3 (test code = 0.09 10*3/uL 0.06-0.53 711-2) BASO x10^3 (test code <0.03 0.01-0.09 = 704-7) Lab Interpretation Abnormal (test code = 75677-0) [facility] W/AUTO [id number] 09:48:00 Test Item Value Reference Range Interpretation [...] = MX#) 0.8 k/mm3 0.1-0.8 N GLUCOSE [id number] 06:12:00 Test Item Value Reference Range Interpretation Comments GLUCOSE BEDSIDE (test 129 MG/DL 70-110 H Perfor med by certified code = GLUBED) 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 [facility] BASIC METABOLIC [id number] 05:21:00 Test Item Value Reference Range Interpretation [...] (test code = POCGLU) 92 MG/DL GLUCOSE [id number] 05:19:00 Test Item Value Reference Range Interpretation Comments GLUCOSE BEDSIDE (test 51 MG/DL 70-110 L Perfor med by certified code = GLUBED) 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 [facility] CBC W/AUTO [id number] 14:00:00 Test Item Value Reference Range Interpretation [...] MX#) 0.2 k/mm3 0.1-0.8 N CBC W/AUTO [id number] 00:07:00 Test Item Value Reference Range Interpretation [...] = LY#) 2.4 K/uL 1.0-3.8 N LIVER [id number] 16:14:00 Test Item Value Reference Range Interpretation Comments TOTAL PROTEIN (test code 7.5 GM/DL 5.0-8.0 N Per formed by = PROT) 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 [facility] ed Ctr ALBUMIN (test code = [...] 65 UNITS/L 25-125 N TAWNY) BASIC METABOLIC [id number] 16:07:00 Test Item Value Reference Range Interpretation [...] POCGLU) 96 MG/DL - XR CHEST 1 [id number] 00:00:00 [facility] : 1970 Sex: MFAX: Sabi Urias MD [phone] [place]: [place] St: PRE Name: OPALDORA [place]raz[place] FSED : 1970 Age/S: 51/M [address] [facility] Unit #: [id number] Loc: [place] [address] Phys: Sabi Urias MD Acct: [id number] Dis Date: Status: PRE ER PHONE #: Exam Date: 06/27/2021 1448 FAX #: Reason: Abdominal PainEXAMS: CPT CODE: [id number] XR CHEST 1 V 18093 PROCEDURE INFORMATION: Exam: XR Chest Exam date [...] By: [email or web address] Orig Print D/T: S: 06/27/2021 (654) PAGE 1 Signed Report- CT ABD PELVIS W/[id number] 00:00:00 [facility] 1970 Sex: MName: DORA JOSEPH FSED : 1970 Age/S: 51 / M [address] [facility] Unit #: [id number] Loc: [place] [address] Phys: Sabi Urias MD Acct: [id number] Dis Date: Status: REG ER PHONE #: Exam Date: 06/27/2021 1624 FAX #: Reason: pain in region of colostomy EXAMS: CPT CODE: [id number] CT ABD PELVIS W/CONT 80614 PROCEDURE INFORMATION: Exam: CT Abdomen And Pelvis [...] acute disease. ADDITIONAL FINDINGS: None. IMPRESSION: 1. 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 A peristomal fat containing hernia is present PAGE 1 Signed Report (CONTINUED) Name: DORA JOSEPH FSED : 1970 Age/S: 51 / M [address] [facility] Unit #: [id number] Loc: [place] [address] Phys: Sabi Urias MD Acct: [id number] Dis Date: Status: REG ER PHONE #: Exam Date: 06/27/2021 1235 FAX #: Reason: pain in region of colostomy EXAMS: CPT CODE: [id number] CT ABD PELVIS W/CONT 66233 <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 There is no evidence of associated intestinal obstruction. 2. No additional acute CT abnormalities of the abdomen or pelvis are identified. SL:131 at 1650 Reported and signed by: Marco Raman M.D. CC: Sabi Urias MD Technologist:Yecenia Carbajal, RT(R)(CT) CTDI: DLP: Trnscb Date/Time: 06/27/2021 (1649) t.SDR.DMM Orig Print D/T: S: 06/27/2021 (1649) PAGE 2 Signed ReportBASIC METABOLIC PANEL (NA, K, CL, CO2, GLUCOSE, BUN, CREATININE, CA)2021-06-03 11:32:40 Test Item Value Reference Range Interpretation Comments NA (test code = 133 mmol/L 135-145 L 6719612330) K (test code = 3.7 mmol/L 3.5-5.0 4628466377) CL (test code = 108 mmol/L 98-108 4336569829) CO2 TOTAL (test code = 20 mmol/L 23-31 L 8911439435) AGAP (test code = 2-16 2624768007) BUN (test code = 11 mg/dL 7-23 5210513689) GLUCOSE (test code = 82 mg/dL 70-110 8728304116) CREATININE (test code = 0.96 mg/dL 0.60-1.25 3075827443) CALCIUM (test code = 8.6 mg/dL 8.6-10.6 8443897240) eGFR (test code = mL/min/1.73m2 8541976745) GILBERTO (test code = GILBERTO) Association of [...] tests). Lab Interpretation Abnormal (test code = 97614-1) [facility] METABOLIC PANEL (NA, K, CL, CO2, GLUCOSE, BUN, CREATININE, CA)2021-06-02 11:45:25 Test Item Value Reference Range Interpretation Comments NA (test code = 133 mmol/L 135-145 L 3258815545) K (test code = 3.7 mmol/L 3.5-5.0 6218149678) CL (test code = 111 mmol/L 98-108 H 9223324448) CO2 TOTAL (test code = 17 mmol/L 23-31 L 1102351205) AGAP (test code = 2-16 0813670394) BUN (test code = 15 mg/dL 7-23 0940584593) GLUCOSE (test code = 88 mg/dL 70-110 7816196954) CREATININE (test code = 0.96 mg/dL 0.60-1.25 9688122827) CALCIUM (test code = 8.1 mg/dL 8.6-10.6 L 2443519064) eGFR (test code = mL/min/1.73m2 1009864581) GILBERTO (test code = GILBERTO) Association of [...] tests). Lab Interpretation Abnormal (test code = 46313-7) [facility] (NA, K, CL, CO2, GLUCOSE, BUN, CREATININE, CA)2021-06-01 17:06:47 Test Item Value Reference Range Interpretation Comments NA (test code = 131 mmol/L 135-145 L 5669232181) K (test code = 3.9 mmol/L 3.5-5.0 Slight 3521149676) hemolysis CL (test code = 108 mmol/L 98-108 3589432679) CO2 TOTAL (test code 15 mmol/L 23-31 L = 2308166273) AGAP (test code = 2-16 2914842365) BUN (test code = 26 mg/dL 7-23 H Slight 1630371759) hemolysis GLUCOSE (test code = 85 mg/dL 70-110 5606470404) CREATININE (test code 1.26 mg/dL 0.60-1.25 H = 3939344129) CALCIUM (test code = 8.1 mg/dL 8.6-10.6 L 2741158522) eGFR (test code = mL/min/1.73m2 7559326417) GILBERTO (test code = GILBERTO) Association of [...] tests). Lab Interpretation Abnormal (test code = 95325-3) [facility] Area[facility] Acid Whole [id number] 05:45:35 Test Item Value Reference Range Interpretation Comments LACTIC ACID (test code = 0.67 mmol/L 0.50-2.20 6471966685) Lab Interpretation (test code = Normal 93684-5) [facility] AreaTROPONIN [id number] 23:44:55 Test Item Value Reference Interpretation Comments Range TROPONIN I (test 0.004 ng/mL See_Comment [Automated code = 5074337032) message] The system which generated this result [...] biotin. Lab Interpretation Normal (test code = 26362-6) [facility]2021-10-08 23:33:28 Test Item Value Reference Range Interpretation Comments LIPASE (test code = 2849421835) 386 U/L 0-220 H Lab Interpretation (test code = Abnormal 46750-7) [facility] METABOLIC PANEL (76246)2021-05-31 23:33:28 Test Item Value Reference Range Interpretation Comments NA (test code = 128 mmol/L 135-145 L 9720607642) K (test code = 4.2 mmol/L 3.5-5.0 0962043116) CL (test code = 102 mmol/L 98-108 9441944825) CO2 TOTAL (test code = 13 mmol/L 23-31 L 6924162619) AGAP (test code = 2-16 1376377078) BUN (test code = 47 mg/dL 7-23 H 1959207702) GLUCOSE (test code = 106 mg/dL 70-110 2262275564) CREATININE (test code = 2.38 mg/dL 0.60-1.25 H 8736608145) TOTAL BILI (test code = 0.6 mg/dL 0.1-1.2 7047292369) CALCIUM (test code = 9.5 mg/dL 8.6-10.6 8496710927) T PROTEIN (test code = 7.3 g/dL 6.3-8.2 4312792154) ALBUMIN (test code = 4.6 g/dL 3.5-5.0 1433087909) ALK PHOS (test code = 110 U/L 34-122 5148479462) ALTv (test code = 29 U/L 5-50 1742-6) AST(SGOT) (test code = 33 U/L 13-40 3369812839) eGFR (test code = mL/min/1.73m2 7875155496) GILBERTO (test code = GILBERTO) Association of [...] tests). Lab Interpretation Abnormal (test code = 42309-3) [facility] WITH [id number] 22:57:06 Test Item Value Reference Range Interpretation Comments WBC (test code = See_Comment [Automated 8339-2) message] The sy stem which generated this result transmitted reference range : 4.20 - 10.70 10*3/?L. The reference range was not used to interpret this result as normal/abnormal . RBC (test code = See_Comment [Automated 758-8) message] The sy stem which generated this [...] RDW-SD (test code = 43.2 fL 38.5-51.6 25413-7) RDW-CV (test code = 13.7 % 12.1-15.4 788-0) PLT (test code = See_Comment [Automated 777-3) message] The sy stem which generated this result transmitted reference range : 150 - 328 10*3/ ?L. The reference r meredith was not used to interpret this result as normal/abnormal . MPV (test code = 10.1 fL 9.8-13.0 49818-3) NRBC/100 WBC (test See_Comment [Automat ed code = 2509209030) message] The system which generated this result transmitted reference range : 0.0 - 10.0 /100 WBCs. The refer ence range was not u sed to interpret th is result as normal/abnormal . NRBC x10^3 (test code <0.01 See_Comment [Auto mated = 1322982914) message] The s ystem which generated this result transmitted reference range : 10*3/?L. The reference range was not used to interpret this result as normal/abnormal . GRAN MAT (NEUT) % 68.1 % (test code = 770-8) IMM GRAN % (test code 0.40 % = 1479463243) LYMPH % (test code = 21.9 % 736-9) MONO % (test code = 8.9 % 5905-5) EOS % (test code = 0.3 % 713-8) BASO % (test code = 0.4 % 706-2) GRAN MAT x10^3(ANC) 5.38 10*3/uL 1.99-6.95 (test code = 4666128027) IMM GRAN x10^3 (test 0.03 10*3/uL 0.00-0.06 code = 4538723086) LYMPH x10^3 (test code 1.73 10*3/uL 1.09-3.23 = 731-0) MONO x10^3 (test code 0.70 10*3/uL 0.36-1.02 = 742-7) EOS x10^3 (test code = <0.03 0.06-0.53 L 711-2) BASO x10^3 (test code 0.03 10*3/uL 0.01-0.09 = 704-7) Lab Interpretation Abnormal (test code = 62021-4) [facility]2021-09-28 09:49:03 Test Item Value Reference Range Interpretation Comments MAGNESIUM (test code = 5079123383) 2.0 mg/dL 1.7-2.4 Lab Interpretation (test code = Normal 52800-3) [facility]2021-09-28 09:49:03 Test Item Value Reference Range Interpretation Comments PHOSPHORUS (test code = 9119499463) 4.0 mg/dL 2.5-5.0 Lab Interpretation (test code = Normal 59044-0) [facility] Met[facility] (NA, K, CL, CO2, GLUCOSE, BUN, CREATININE, CA)2021-05-21 09:49:03 Test Item Value Reference Range Interpretation Comments NA (test code = 132 mmol/L 135-145 L 5115461556) K (test code = 4.3 mmol/L 3.5-5.0 4235941959) CL (test code = 105 mmol/L 98-108 4045561701) CO2 TOTAL (test code = 21 mmol/L 23-31 L 7606970758) AGAP (test code = 2-16 8931509229) BUN (test code = 25 mg/dL 7-23 H 2729644194) GLUCOSE (test code = 98 mg/dL 70-110 8217153971) CREATININE (test code = 1.20 mg/dL 0.60-1.25 4006523067) CALCIUM (test code = 8.4 mg/dL 8.6-10.6 L 6099418008) eGFR (test code = mL/min/1.73m2 4874862045) GILBERTO (test code = GILBERTO) Association of [...] tests). Lab Interpretation Abnormal (test code = 71365-6) [facility] with Aqbvtkklahoo6335-20-34 09:22:22 Test Item Value Reference Range Interpretation Comments WBC (test code = See_Comment [Automated 2429-2) message] The sy stem which generated this result transmitted reference range : 4.20 - 10.70 10*3/?L. The reference range was not used to interpret this result as normal/abnormal . RBC (test code = See_Comment L [Automated 692-0) message] The sy stem which generated this [...] RDW-SD (test code = 45.6 fL 38.5-51.6 32662-7) RDW-CV (test code = 13.7 % 12.1-15.4 788-0) PLT (test code = See_Comment [Automated 777-3) message] The sy stem which generated this result transmitted reference range : 150 - 328 10*3/ ?L. The reference r meredith was not used to interpret this result as normal/abnormal . MPV (test code = 9.7 fL 9.8-13.0 L 88184-4) NRBC/100 WBC (test See_Comment [Automat ed code = 9095496151) message] The system which generated this result transmitted reference range : 0.0 - 10.0 /100 WBCs. The refer ence range was not u sed to interpret th is result as normal/abnormal . NRBC x10^3 (test code <0.01 See_Comment [Auto mated = 3991586904) message] The s ystem which generated this result transmitted reference range : 10*3/?L. The reference range was not used to interpret this result as normal/abnormal . GRAN MAT (NEUT) % 49.4 % (test code = 770-8) IMM GRAN % (test code 0.60 % = 5886936054) LYMPH % (test code = 35.2 % 736-9) MONO % (test code = 11.9 % 5905-5) EOS % (test code = 2.1 % 713-8) BASO % (test code = 0.8 % 706-2) GRAN MAT x10^3(ANC) 2.33 10*3/uL 1.99-6.95 (test code = 5925332094) IMM GRAN x10^3 (test 0.03 10*3/uL 0.00-0.06 code = 9468205246) LYMPH x10^3 (test code 1.66 10*3/uL 1.09-3.23 = 731-0) MONO x10^3 (test code 0.56 10*3/uL 0.36-1.02 = 742-7) EOS x10^3 (test code = 0.10 10*3/uL 0.06-0.53 711-2) BASO x10^3 (test code 0.04 10*3/uL 0.01-0.09 = 704-7) Lab Interpretation Abnormal (test code = 71291-7) [facility] 20:21:19 Test Item Value Reference Range Interpretation Comments LIPASE (test code = 6133591755) 307 U/L 0-220 H Lab Interpretation (test code = Abnormal 55518-4) [facility] METABOLIC PANEL (31907)2021-05-20 20:21:19 Test Item Value Reference Range Interpretation Comments NA (test code = 132 mmol/L 135-145 L 6311602238) K (test code = 4.3 mmol/L 3.5-5.0 6018421313) CL (test code = 100 mmol/L 98-108 3558746891) CO2 TOTAL (test code = 18 mmol/L 23-31 L 3875021302) AGAP (test code = 2-16 0279251757) BUN (test code = 32 mg/dL 7-23 H 5288604903) GLUCOSE (test code = 100 mg/dL 70-110 6253081408) CREATININE (test code = 1.76 mg/dL 0.60-1.25 H 5958732354) TOTAL BILI (test code = 0.7 mg/dL 0.1-1.2 2958682129) CALCIUM (test code = 9.6 mg/dL 8.6-10.6 4569026949) T PROTEIN (test code = 7.5 g/dL 6.3-8.2 1366214060) ALBUMIN (test code = 4.7 g/dL 3.5-5.0 8103087817) ALK PHOS (test code = 104 U/L 34-122 1860478355) ALTv (test code = 23 U/L 5-50 1742-6) AST(SGOT) (test code = 29 U/L 13-40 7131933858) eGFR (test code = mL/min/1.73m2 0153768178) GILBERTO (test code = GILBERTO) Association of [...] tests). Lab Interpretation Abnormal (test code = 39561-8) [facility] WITH [id number] 20:15:39 Test Item Value Reference Range Interpretation Comments WBC (test code = See_Comment [Automated message] 6690-2) The system [email or web address] generated this result transmitted ref erence range: 4.20 - 1 0.70 10*3/?L. The re ference range was not u sed to interpret this result as normal/abnor mal. RBC (test code = See_Comment [Automated message] 789-8) The system [email or web address] generated this result transmitted ref erence range: [...] RDW-SD (test code 44.8 fL 38.5-51.6 = 21127-9) RDW-CV (test code 13.7 % 12.1-15.4 = 788-0) PLT (test code = See_Comment [Automated message] 777-3) The system [employer] h generated this result transmitted ref erence range: 150 - 32 8 10*3/?L. The re ference range was not u sed to interpret this result as normal/abnor mal. MPV (test code = 9.8 fL 9.8-13.0 15412-7) NRBC/100 WBC (test See_Comment [Automat ed message] code = 8491926441) The syste m which generated this result transmitted ref erence range: 0.0 - 10 .0 /100 WBCs. The refer ence range was not u sed to interpret this result as normal/abnor mal. NRBC x10^3 (test <0.01 See_Comment [Automated message] code = 6978198203) The syste m which generated this result transmitted ref erence range: 10*3/?L. The reference range was not used to interpr et this result as normal/abnormal . GRAN MAT (NEUT) % 55.9 % (test code = 770-8) IMM GRAN % (test 0.40 % code = 0263783828) LYMPH % (test code 32.5 % = 736-9) MONO % (test code 9.4 % = 5905-5) EOS % (test code = 1.2 % 713-8) BASO % (test code 0.6 % = 706-2) GRAN MAT 3.87 10*3/uL 1.99-6.95 x10^3(ANC) (test code = 6449056402) IMM GRAN x10^3 0.03 10*3/uL 0.00-0.06 (test code = 6643818876) LYMPH x10^3 (test 2.25 10*3/uL 1.09-3.23 code = 731-0) MONO x10^3 (test 0.65 10*3/uL 0.36-1.02 code = 742-7) EOS x10^3 (test 0.08 10*3/uL 0.06-0.53 code = 711-2) BASO x10^3 (test 0.04 10*3/uL 0.01-0.09 code = 704-7) [facility] Whole Xnuau5262-68-30 20:07:57 Test Item Value Reference Range Interpretation Comments LACTIC ACID (test code = 1.81 mmol/L 0.50-2.20 4648537059) Lab Interpretation (test code = Normal 71549-6) [facility] Metabolic Panel (NA, K, CL, CO2, GLUCOSE, BUN, CREATININE, CA)2021-05-08 10:32:35 Test Item Value Reference Range Interpretation Comments NA (test code = 135 mmol/L 135-145 8002081066) K (test code = 4.2 mmol/L 3.5-5.0 1201288091) CL (test code = 106 mmol/L 98-108 7735902154) CO2 TOTAL (test code 23 mmol/L 23-31 = 0398787967) AGAP (test code = 2-16 1988268569) BUN (test code = 22 mg/dL 7-23 4549277717) GLUCOSE (test code = 87 mg/dL 70-110 5677273403) CREATININE (test code 1.21 mg/dL 0.60-1.25 = 5938224386) CALCIUM (test code = 8.7 mg/dL 8.6-10.6 7238364738) eGFR (test code = mL/min/1.73m2 0027480410) GILBERTO (test code = GILBERTO) Association of [...] or abnormalities in imaging tests). [facility] Metabolic Panel (NA, K, CL, CO2, GLUCOSE, BUN, CREATININE, CA)2021-05-08 10:32:35 Test Item Value Reference Range Interpretation Comments NA (test code = 135 mmol/L 135-145 7071994519) K (test code = 4.2 mmol/L 3.5-5.0 6867624069) CL (test code = 106 mmol/L 98-108 3016004342) CO2 TOTAL (test code 23 mmol/L 23-31 = 8456977982) AGAP (test code = 2-16 4234396255) BUN (test code = 22 mg/dL 7-23 0829760633) GLUCOSE (test code = 87 mg/dL 70-110 2321993822) CREATININE (test code 1.21 mg/dL 0.60-1.25 = 8436520162) CALCIUM (test code = 8.7 mg/dL 8.6-10.6 4533996784) eGFR (test code = mL/min/1.73m2 2320725422) GILBERTO (test code = GILBERTO) Association of [...] or urine or abnormalities in imaging tests). [facility] with Kdejhaibgsxh7263-41-66 10:12:52 Test Item Value Reference Range Interpretation Comments WBC (test code = See_Comment [Automated 3883-2) message] The sy stem which generated this result transmitted reference range : 4.20 - 10.70 10*3/?L. The reference range was not used to interpret this result as normal/abnormal . RBC (test code = See_Comment L [Automated 419-8) message] The sy stem which generated this [...] RDW-SD (test code = 48.4 fL 38.5-51.6 38026-1) RDW-CV (test code = 14.0 % 12.1-15.4 788-0) PLT (test code = See_Comment [Automated 777-3) message] The sy stem which generated this result transmitted reference range : 150 - 328 10*3/ ?L. The reference r meredith was not used to interpret this result as normal/abnormal . MPV (test code = 9.6 fL 9.8-13.0 L 46742-2) NRBC/100 WBC (test See_Comment [Automat ed code = 4995594345) message] The system which generated this result transmitted reference range : 0.0 - 10.0 /100 WBCs. The refer ence range was not u sed to interpret th is result as normal/abnormal . NRBC x10^3 (test code <0.01 See_Comment [Auto mated = 7229912577) message] The s ystem which generated this result transmitted reference range : 10*3/?L. The reference range was not used to interpret this result as normal/abnormal . GRAN MAT (NEUT) % 55.6 % (test code = 770-8) IMM GRAN % (test code 0.20 % = 4679191824) LYMPH % (test code = 31.5 % 736-9) MONO % (test code = 9.9 % 5905-5) EOS % (test code = 2.0 % 713-8) BASO % (test code = 0.8 % 706-2) GRAN MAT x10^3(ANC) 2.76 10*3/uL 1.99-6.95 (test code = 6364091703) IMM GRAN x10^3 (test <0.03 0.00-0.06 code = 3194920545) LYMPH x10^3 (test code 1.56 10*3/uL 1.09-3.23 = 731-0) MONO x10^3 (test code 0.49 10*3/uL 0.36-1.02 = 742-7) EOS x10^3 (test code = 0.10 10*3/uL 0.06-0.53 711-2) BASO x10^3 (test code 0.04 10*3/uL 0.01-0.09 = 704-7) Lab Interpretation Abnormal (test code = 83249-2) [facility] with Ublgxdgzjoks1747-93-65 10:12:52 Test Item Value Reference Range Interpretation [...] RDW-SD (test code = 48.4 fL 38.5-51.6 53807-1) RDW-CV (test code = 14.0 % 12.1-15.4 788-0) PLT (test code = See_Comment [Automated 777-3) message] The sy stem which generated this result transmitted reference range : 150 - 328 10*3/ ?L. The reference r meredith was not used to interpret this result as normal/abnormal . MPV (test code = 9.6 fL 9.8-13.0 L 34897-4) NRBC/100 WBC (test See_Comment [Automat ed code = [id number]) message] The system which generated this result transmitted reference range : 0.0 - 10.0 /100 WBCs. The refer ence range was not u sed to interpret th is result as normal/abnormal . NRBC x10^3 (test code <0.01 See_Comment [Auto mated = [id number]) message] The s ystem which generated this result transmitted reference range : 10*3/?L. The reference range was not used to interpret this result as normal/abnormal . GRAN MAT (NEUT) % 55.6 % (test code = 770-8) IMM GRAN % (test code 0.20 % = 5085299892) LYMPH % (test code = 31.5 % 736-9) MONO % (test code = 9.9 % 5905-5) EOS % (test code = 2.0 % 713-8) BASO % (test code = 0.8 % 706-2) GRAN MAT x10^3(ANC) 2.76 10*3/uL 1.99-6.95 (test code = 1293926168) IMM GRAN x10^3 (test <0.03 0.00-0.06 code = 6028838310) LYMPH x10^3 (test code 1.56 10*3/uL 1.09-3.23 = 731-0) MONO x10^3 (test code 0.49 10*3/uL 0.36-1.02 = 742-7) EOS x10^3 (test code = 0.10 10*3/uL 0.06-0.53 711-2) BASO x10^3 (test code 0.04 10*3/uL 0.01-0.09 = 704-7) Lab Interpretation Abnormal (test code = 31254-4) [facility] (NA, K, CL, CO2, GLUCOSE, BUN, CREATININE, CA)2021-05-08 01:11:57 Test Item Value Reference Range Interpretation Comments NA (test code = 134 mmol/L 135-145 L [id number]) K (test code = 4.7 mmol/L 3.5-5.0 3191759254) CL (test code = 100 mmol/L 98-108 7860784886) CO2 TOTAL (test code = 24 mmol/L 23-31 8621055296) AGAP (test code = 2-16 4676807249) BUN (test code = 27 mg/dL 7-23 H 5487384862) GLUCOSE (test code = 94 mg/dL 70-110 0041184923) CREATININE (test code = 1.31 mg/dL 0.60-1.25 H 3109101081) CALCIUM (test code = 9.5 mg/dL 8.6-10.6 9036738455) eGFR (test code = mL/min/1.73m2 5097616526) GILBERTO (test code = GILBERTO) Association of [...] tests). Lab Interpretation Abnormal (test code = 15958-0) [facility]54668[facility] (ALB,T.PRO,BILI T,BU/BC,ALT,AST,ALK PHOS)2021-05-08 01:11:57 Test Item Value Reference Range Interpretation Comments TOTAL BILI (test code = 0725254167) 0.8 mg/dL 0.1-1.1 BILI UNCON (test code = 3624283416) 0.2 mg/dL 0.1-1.1 BILI CONJ (test code = 8095985602) 0.0 mg/dL 0.0-0.3 T PROTEIN (test code = 7676013188) 7.1 g/dL 6.3-8.2 ALBUMIN (test code = 3006989467) 4.4 g/dL 3.5-5.0 ALK PHOS (test code = 7669267652) 88 U/L 34-122 ALTv (test code = 1742-6) 40 U/L 5-50 AST(SGOT) (test code = 5659675045) 38 U/L 13-40 Lab Interpretation (test code = Normal 06575-2) [facility] METABOLIC PANEL (NA, K, CL, CO2, GLUCOSE, BUN, CREATININE, CA)2021-05-08 01:11:57 Test Item Value Reference Range Interpretation Comments NA (test code = 134 mmol/L 135-145 L 2125637246) K (test code = 4.7 mmol/L 3.5-5.0 6608212391) CL (test code = 100 mmol/L 98-108 3608121449) CO2 TOTAL (test code = 24 mmol/L 23-31 3051980871) AGAP (test code = 2-16 8038582137) BUN (test code = 27 mg/dL 7-23 H 5458204488) GLUCOSE (test code = 94 mg/dL 70-110 9212080507) CREATININE (test code = 1.31 mg/dL 0.60-1.25 H 4094455674) CALCIUM (test code = 9.5 mg/dL 8.6-10.6 3334712090) eGFR (test code = mL/min/1.73m2 1214331803) GILBERTO (test code = GILBERTO) Association of [...] tests). Lab Interpretation Abnormal (test code = 47794-1) [facility] (59864[facility] (ALB,T.PRO,BILI T,BU/BC,ALT,AST,ALK PHOS)2021-05-08 01:11:57 Test Item Value Reference Range Interpretation Comments TOTAL BILI (test code = 5980207484) 0.8 mg/dL 0.1-1.1 BILI UNCON (test code = 9540340044) 0.2 mg/dL 0.1-1.1 BILI CONJ (test code = 3278947259) 0.0 mg/dL 0.0-0.3 T PROTEIN (test code = 0287338502) 7.1 g/dL 6.3-8.2 ALBUMIN (test code = 9342529376) 4.4 g/dL 3.5-5.0 ALK PHOS (test code = 7074000809) 88 U/L 34-122 ALTv (test code = 1742-6) 40 U/L 5-50 AST(SGOT) (test code = 3372724675) 38 U/L 13-40 Lab Interpretation (test code = Normal 65745-4) [facility] WITH [id number] 00:59:56 Test Item Value Reference Range Interpretation [...] RDW-SD (test code = 46.9 fL 38.5-51.6 66595-5) RDW-CV (test code = 13.9 % 12.1-15.4 788-0) PLT (test code = See_Comment [Automated 777-3) message] The sy stem which generated this result transmitted reference range : 150 - 328 10*3/ ?L. The reference r meredith was not used to interpret this result as normal/abnormal . MPV (test code = 10.0 fL 9.8-13.0 33015-1) NRBC/100 WBC (test See_Comment [Automat ed code = 1083949953) message] The system which generated this result transmitted reference range : 0.0 - 10.0 /100 WBCs. The refer ence range was not u sed to interpret th is result as normal/abnormal . NRBC x10^3 (test code <0.01 See_Comment [Auto mated = 1623328396) message] The s ystem which generated this result transmitted reference range : 10*3/?L. The reference range was not used to interpret this result as normal/abnormal . GRAN MAT (NEUT) % 53.9 % (test code = 770-8) IMM GRAN % (test code 0.30 % = 5147639120) LYMPH % (test code = 32.0 % 736-9) MONO % (test code = 11.6 % 5905-5) EOS % (test code = 1.6 % 713-8) BASO % (test code = 0.6 % 706-2) GRAN MAT x10^3(ANC) 3.67 10*3/uL 1.99-6.95 (test code = 4191355743) IMM GRAN x10^3 (test <0.03 0.00-0.06 code = 5337726781) LYMPH x10^3 (test code 2.18 10*3/uL 1.09-3.23 = 731-0) MONO x10^3 (test code 0.79 10*3/uL 0.36-1.02 = 742-7) EOS x10^3 (test code = 0.11 10*3/uL 0.06-0.53 711-2) BASO x10^3 (test code 0.04 10*3/uL 0.01-0.09 = 704-7) Lab Interpretation Abnormal (test code = 17946-5) [facility] WITH [id number] 00:59:56 Test Item Value Reference Range Interpretation Comments WBC (test code = See_Comment [Automated 6690-2) message] The sy stem which generated this result transmitted reference range : 4.20 - 10.70 10*3/?L. The reference range was not used to interpret this result as normal/abnormal . RBC (test code = See_Comment L [Automated 289-8) message] The sy stem which generated this [...] RDW-SD (test code = 46.9 fL 38.5-51.6 10211-1) RDW-CV (test code = 13.9 % 12.1-15.4 788-0) PLT (test code = See_Comment [Automated 777-3) message] The sy stem which generated this result transmitted reference range : 150 - 328 10*3/ ?L. The reference r meredith was not used to interpret this result as normal/abnormal . MPV (test code = 10.0 fL 9.8-13.0 65360-7) NRBC/100 WBC (test See_Comment [Automat ed code = 9769517889) message] The system which generated this result transmitted reference range : 0.0 - 10.0 /100 WBCs. The refer ence range was not u sed to interpret th is result as normal/abnormal . NRBC x10^3 (test code <0.01 See_Comment [Auto mated = 4899133962) message] The s ystem which generated this result transmitted reference range : 10*3/?L. The reference range was not used to interpret this result as normal/abnormal . GRAN MAT (NEUT) % 53.9 % (test code = 770-8) IMM GRAN % (test code 0.30 % = 7179490694) LYMPH % (test code = 32.0 % 736-9) MONO % (test code = 11.6 % 5905-5) EOS % (test code = 1.6 % 713-8) BASO % (test code = 0.6 % 706-2) GRAN MAT x10^3(ANC) 3.67 10*3/uL 1.99-6.95 (test code = 5401696443) IMM GRAN x10^3 (test <0.03 0.00-0.06 code = 1965150835) LYMPH x10^3 (test code 2.18 10*3/uL 1.09-3.23 = 731-0) MONO x10^3 (test code 0.79 10*3/uL 0.36-1.02 = 742-7) EOS x10^3 (test code = 0.11 10*3/uL 0.06-0.53 711-2) BASO x10^3 (test code 0.04 10*3/uL 0.01-0.09 = 704-7) Lab Interpretation Abnormal (test code = 50215-4) [facility] W/AUTO [id number] 09:20:00 Test Item Value Reference Range Interpretation [...] (test code NO = MDIFF) CBC W/AUTO [id number] 08:59:00 Test Item Value Reference Range Interpretation [...] REQUIRED (test code = MDIFF) BASIC METABOLIC [id number] 08:21:00 Test Item Value Reference Range Interpretation [...] 8.4 mg/dL 8.0-10.5 N CA) BASIC METABOLIC [id number] 08:34:00 Test Item Value Reference Range Interpretation [...] 8.4 mg/dL 8.0-10.5 N CA) CBC W/AUTO [id number] 07:41:00 Test Item Value Reference Range Interpretation [...] = MDIFF) UA RFLX MICR CULT IF [id number] 10:10:00 Test Item Value Reference Range Interpretation [...] Suprapubic Pain Temperature > 100.4 FSpecimen Description: [facility] METABOLIC [id number] 04:13:00 Test Item Value Reference Range Interpretation [...] mg/dL 8.0-10.5 N CA) Coronavirus 2019 nCoV [id number] 22:03:00 Test Item Value Reference Range Interpretation Comments Coronavirus 2019 Negative Negative Performed b y certified nCoV Bedside (electronic scale tester at [facility] code = CtrNegative res ults should [id number]) be treated as presumptive and, ifinconsis tent with clinical signs and symptoms or necessaryfor patient management, fifi uld be tested with an alternativemole cular assay. Negative result s do not preclude URNM-ArX-3kajro tion and should not be u sed as the sole basis forp atient management deci sions. Negative result s should beconsidered in the context of a patient's recent exposures,histo ry, presence of clinical sig ns and symptoms consis tentwith COVID-19. CBC W/AUTO [id number] 21:11:00 Test Item Value Reference Range Interpretation [...] MX#) 0.6 k/mm3 0.1-0.8 N BASIC METABOLIC [id number] 19:00:00 Test Item Value Reference Range Interpretation [...] POCGLU) 92 MG/DL - CT ABD PELVIS W/[id number] 00:00:00 [facility] : 1970 Sex: MName: DORA JOSEPH FSED : 1970 Age/S: 51 / M [address] [facility] Unit #: [id number] Loc: [place] [address] Phys: Marcello Benoit MD Acct: [id number] Dis Date: Status: REG ER PHONE #: Exam Date: 04/28/20211913 FAX #: Reason: epigastric and LLQ pain, R-sided colostomy EXAMS:CPT CODE: [id number] CT ABD PELVIS W/CONT 73038 PROCEDURE INFORMATION: Exam: CT Abdomen And Pelvis [...] optimization techniques: automated exposure control; mA and/or kVadjustment per patient size (includes targeted exams where dose is matched to clinical indication); or iterative reconstruction. Contrast material: ISOVUE 300; Contrast volume: 100 ml; Contrast route: INTRAVENOUS (IV); Other technique: CT radiation dose DLP (MGY-CM) : 838.32 COMPARISON: CT ABD PELVIS W /CONT 02/23/2020 8:43 PM FINDINGS: Lungs: Mild compressive [...] appendicitis. Intraperitoneal space: There is no free intraperitonealfluid or air. No focal fluid collection. Vasculature: There is mild atherosclerotic calcification ofthe coronary arteries. The aorta demonstrates mild atherosclerotic calcification. Lymph nodes: Unremarkable. No enlarged lymph nodes. Urinary bladder: Urinary bladder is contracted otherwise unremarkable. PAGE 1 Signed Report (CONTINUED) Name: JOSEPHDORA HOANG Castro FSED : 1970 Age/S: 51 /M [address] [facility] Unit #: [id number] Loc: [place] E[place] [address] Phys: Marcello Benoit MD Acct: [id number] Dis Date: Status: REG ER PHONE #: Exam Date: 04/28/20211913 FAX #: Reason: epigastric and LLQ pain, R-sided colostomy EXAMS: CPT CODE: [id number] CT ABD PELVIS W/CONT 56539 <Continued> Reproductive: Unremarkable as visualized. Bones/joints: Unremarkable. [...] NA (test code = 139 mmol/L 135-145 3152627458) K (test code = 4.0 mmol/L 3.5-5 8385202098) CL (test code = 108 mmol/L 98-108 5385392459) CO2 TOTAL (test code = 22 mmol/L 23-31 L 3806673919) AGAP (test code = 2-16 2801591966) BUN (test code = 25 mg/dL 7-23 H 4637509106) GLUCOSE (test code = 91 mg/dL 70-110 8351019222) CREATININE (test code = 1.14 mg/dL 0.6-1.25 9389036593) CALCIUM (test code = 8.9 mg/dL 8.6-10.6 0820200471) eGFR Calculation mL/min/1.73m2 (Non-) (test code = 7159201492) eGFR Calculation mL/min/1.73m2 () (test code = 5065640598) GILBERTO (test code = GILBERTO) Association of [...] tests). Lab Interpretation Abnormal (test code = 64899-7) [facility] / [id number] 10:13:00 Test Item Value Reference Range Interpretation Comments WBC (test code = 6690-2) See_Comment [A utomated message] The system [email or web address] generated this result transmit dain reference range : 4.20 - 10.70 10*3/?L. The reference range was not used to interpret this result as normal/abnormal . RBC (test code = 789-8) See_Comment L [Au tomated message] The system [email or web address] generated this result transmit dain reference range [...] 777-3) See_Comment [Au tomated message] The system [employer] generated this result transmit dain reference range : 150 - 328 10*3/?L. The reference range was not used to interpret this result as normal/abnormal . MPV (test code = 9.0 fL 9.8-13 L 58410-3) RDW-CV (test code = 18.7 % 12.1-15.4 H 788-0) RDW-SD (test code = 59.7 fL 38.5-51.6 H 82289-0) NRBC x10^3 (test code = <0.01 See_Comment [Au tomated message] 6140955975) The system [facility] generated this result transmit dain reference range : 10*3/?L. The reference range was not used to interpret this result as normal/abnormal . NRBC/100 WBC (test code See_Comment [Au tomated message] = 2489065923) The system [facility] generated this result transmit dain reference range : 0.0 - 10.0 /100 WBC s. The reference r meredith was not used to interpret this result as normal/abnormal . IPF % (test code = 4511269306) Lab Interpretation (test Abnormal code = 94060-2) [facility] (ID NOW RAPID TESTING)2020-08-23 00:56:00 Test Item Value Reference Range Interpretation Comments SARS-CoV-2 Rapid ID NOW Not Detected Not Detected (test code = 55110-3) GILBERTO (test code = GILBERTO) ID NOW COVID-19 Assay is an isothermal nucleic acid amplification test intended for the qualitative detection of nucleic acid from SARS-CoV-2 viral RNA in nasopharyngeal (COATER SMOKING PIPE) specimens. It is used under Emergency Use [...] indicated. Lab Interpretation Normal (test code = 88319-0) [facility] Metabolic Panel (NA, K, CL, CO2, GLUCOSE, BUN, CREATININE, CA)2020-08-22 22:36:00 Test Item Value Reference Range Interpretation Comments NA (test code = 133 mmol/L 135-145 L 1250726468) K (test code = 4.5 mmol/L 3.5-5 9899363715) CL (test code = 104 mmol/L 98-108 4272784894) CO2 TOTAL (test code = 25 mmol/L 23-31 8653148511) AGAP (test code = 2-16 5330529949) BUN (test code = 27 mg/dL 7-23 H 5142956532) GLUCOSE (test code = 94 mg/dL 70-110 5171360179) CREATININE (test code = 1.33 mg/dL 0.6-1.25 H 0587577238) CALCIUM (test code = 9.5 mg/dL 8.6-10.6 8129058460) eGFR Calculation mL/min/1.73m2 (Non-) (test code = 0828456044) eGFR Calculation mL/min/1.73m2 () (test code = 2562404591) GILBERTO (test code = GILBERTO) Association of [...] tests). Lab Interpretation Abnormal (test code = 21662-9) [facility] (ALB, T.PRO, BILI T, BU/BC, ALT, AST, ALK PHOS)2020-08-22 22:36:00 Test Item Value Reference Range Interpretation Comments TOTAL BILI (test code = 2877026098) 0.4 mg/dL 0.1-1.1 BILI UNCON (test code = 3698572734) 0.1 mg/dL 0.1-1.1 BILI CONJ (test code = 5171590163) 0.0 mg/dL 0-0.3 T PROTEIN (test code = 3986405078) 6.8 g/dL 6.3-8.2 ALBUMIN (test code = 3361230089) 4.0 g/dL 3.5-5 ALK PHOS (test code = 4959966041) 78 U/L 34-122 ALTv (test code = 1742-6) 35 U/L 5-50 AST(SGOT) (test code = 2644809412) 29 U/L 13-40 Lab Interpretation (test code = Normal 55246-8) [facility] with [id number] 22:15:00 Test Item Value Reference Range Interpretation [...] (test code = 60.6 fL 38.5-51.6 H 80189-4) RDW-CV (test code = 19.0 % 12.1-15.4 H 788-0) PLT (test code = See_Comment [Automated 777-3) message] The sy stem which generated this result transmitted reference range : 150 - 328 10*3/ ?L. The reference r meredith was not used to interpret this result as normal/abnormal . MPV (test code = 9.3 fL 9.8-13 L 40262-0) NRBC/100 WBC (test See_Comment [Automat ed code = 1578416883) message] The system which generated this result transmitted reference range : 0.0 - 10.0 /100 WBCs. The refer ence range was not u sed to interpret th is result as normal/abnormal . NRBC x10^3 (test code <0.01 See_Comment [Auto mated = 8685304740) message] The s ystem which generated this result transmitted reference range : 10*3/?L. The reference range was not used to interpret this result as normal/abnormal . GRAN MAT (NEUT) % 58.6 % (test code = 770-8) IMM GRAN % (test code 0.60 % = 8834513805) LYMPH % (test code = 28.2 % 736-9) MONO % (test code = 9.5 % 5905-5) EOS % (test code = 2.4 % 713-8) BASO % (test code = 0.7 % 706-2) GRAN MAT x10^3(ANC) 3.14 10*3/uL 1.99-6.95 (test code = 4006979122) IMM GRAN x10^3 (test 0.03 10*3/uL 0-0.06 code = 2583086819) LYMPH x10^3 (test code 1.51 10*3/uL 1.09-3.23 = 731-0) MONO x10^3 (test code 0.51 10*3/uL 0.36-1.02 = 742-7) EOS x10^3 (test code = 0.13 10*3/uL 0.06-0.53 711-2) BASO x10^3 (test code 0.04 10*3/uL 0.01-0.09 = 704-7) Lab Interpretation Abnormal (test code = 70600-7) [facility] AreaCT SOFT TISSUE NECK W [id number] 00:47:10Impression: 1. Patent aerodigestive tract.2. No discrete [...] glands are normal. Thyroid gland is unremarkable. Detasseler spaces are normal. Buccal spaces are normal. [...] submandibular glands are normal. Thyroid gland is unremarkable.Detasseler spaces are normal. Buccal spaces are normal. [...] or abscess is identified.RL: [id number] of Report UnSaint [facility] CenterCOVID-19 (ID NOW RAPID TESTING)2020-07-09 23:23:00 Test Item Value Reference Range Interpretation Comments SARS-CoV-2 Rapid ID NOW Not Detected Not Detected (test code = 13276-6) GILBERTO (test code = GILBERTO) ID NOW COVID-19 Assay is an isothermal nucleic acid amplification test intended for the qualitative detection of nucleic acid from SARS-CoV-2 viral RNA in nasopharyngeal (COATER SMOKING PIPE) specimens. It is used under Emergency Use [...] indicated. Lab Interpretation Normal (test code = 36245-6) [facility] AreaUrinalysis2020-11-16 23:21:00 Test Item Value Reference Range Interpretation Comments APPEARANCE (test code = Clear Clear 8434747192) COLOR (test code = Yellow Yellow 8711200473) PH (test code = 4.8-8.0 7403250296) SP GRAVITY (test code = 1.003-1.030 5473443631) GLU U QUAL (test code = Normal Normal 3998493506) BLOOD (test code = Negative Negative 7715698951) KETONES (test code = Negative Negative 8835484850) PROTEIN (test code = 30 mg/dL Negative A 2887-8) UROBILIN (test code = Normal Normal 8541760512) BILIRUBIN (test code = Negative Negative 8374535671) NITRITE (test code = Negative Negative 7079412083) LEUK ROGER (test code = Negative Negative 3126278796) RBC/HPF (test code = <1 See_Comment [Autom ated message] 7412884943) The system [email or web address] generated this result transmitted ref erence range: 0 - 3 HP F. The reference range was not used to int erpret this result as normal/abnormal . WBC/HPF (test code = See_Comment [Autom ated message] 6889562299) The system [email or web address] generated this result transmitted ref erence range: 0 - 5 HP F. The reference range was not used to int erpret this result as normal/abnormal . BACTERIA (test code = Negative Negative 0519248799) MUCOUS (test code = Moderate Negative LPF A 6613864751) HYAL CAST (test code = See_Comment H [Aut omated message] 2077365494) The system [email or web address] generated this result transmitted ref erence range: <=2 LPF. The reference range was not used to int erpret this result as normal/abnormal . Lab Interpretation (test Abnormal code = 65990-1) [facility] Metabolic Panel (NA, K, CL, CO2, GLUCOSE, BUN, CREATININE, CA)2020-07-09 23:20:00 Test Item Value Reference Range Interpretation Comments NA (test code = 135 mmol/L 135-145 3748405233) K (test code = 3.9 mmol/L 3.5-5 8417266052) CL (test code = 107 mmol/L 98-108 3810326289) CO2 TOTAL (test code = 20 mmol/L 23-31 L 6835853161) AGAP (test code = 2-16 3471549244) BUN (test code = 27 mg/dL 7-23 H 0330431806) GLUCOSE (test code = 86 mg/dL 70-110 0495156473) CREATININE (test code = 1.11 mg/dL 0.6-1.25 6776516655) CALCIUM (test code = 9.0 mg/dL 8.6-10.6 9509651276) eGFR Calculation mL/min/1.73m2 (Non-) (test code = 2271335592) eGFR Calculation mL/min/1.73m2 () (test code = 8006186285) GILBERTO (test code = GILBERTO) Association of [...] tests). Lab Interpretation Abnormal (test code = 35159-3) [facility] AreaRAPID STREP SCREEN FOR GROUP [id number] 23:11:00 Test Item Value Reference Range Interpretation Comments Streptococcus pyogenes (group A) Negative Negative antigen (test code = 47778-3) Lab Interpretation (test code = Normal 24933-9) [facility] with [id number] 23:02:00 Test Item Value Reference Range Interpretation Comments WBC (test code = See_Comment [Automated 6690-2) message] The sy stem which generated this result transmitted reference range : 4.20 - 10.70 10*3/?L. The reference range was not used to interpret this result as normal/abnormal . RBC (test code = See_Comment L [Automated 509-8) message] The sy stem which generated this [...] (test code = 55.5 fL 38.5-51.6 H 88915-2) RDW-CV (test code = 18.9 % 12.1-15.4 H 788-0) PLT (test code = See_Comment [Automated 777-3) message] The sy stem which generated this result transmitted reference range : 150 - 328 10*3/ ?L. The reference r meredith was not used to interpret this result as normal/abnormal . MPV (test code = 8.9 fL 9.8-13 L 55681-8) NRBC/100 WBC (test See_Comment [Automat ed code = 7820876960) message] The system which generated this result transmitted reference range : 0.0 - 10.0 /100 WBCs. The refer ence range was not u sed to interpret th is result as normal/abnormal . NRBC x10^3 (test code <0.01 See_Comment [Auto mated = 3409136926) message] The s ystem which generated this result transmitted reference range : 10*3/?L. The reference range was not used to interpret this result as normal/abnormal . GRAN MAT (NEUT) % 59.4 % (test code = 770-8) IMM GRAN % (test code 0.20 % = 9603728722) LYMPH % (test code = 29.9 % 736-9) MONO % (test code = 9.0 % 5905-5) EOS % (test code = 1.2 % 713-8) BASO % (test code = 0.3 % 706-2) GRAN MAT x10^3(ANC) 3.56 10*3/uL 1.99-6.95 (test code = 3182586552) IMM GRAN x10^3 (test <0.03 0-0.06 code = 2594032055) LYMPH x10^3 (test code 1.79 10*3/uL 1.09-3.23 = 731-0) MONO x10^3 (test code 0.54 10*3/uL 0.36-1.02 = 742-7) EOS x10^3 (test code = 0.07 10*3/uL 0.06-0.53 711-2) BASO x10^3 (test code <0.03 0.01-0.09 = 704-7) Lab Interpretation Abnormal (test code = 41530-9) [facility] AreaUrinalysis2020-10-13 13:37:00 Test Item Value Reference Range Interpretation Comments APPEARANCE (test code = Hazy Clear A 9829750807) COLOR (test code = Yellow Yellow 4737438578) PH (test code = 4.8-8.0 9760649175) SP GRAVITY (test code = 1.003-1.030 H 5278517863) GLU U QUAL (test code = Normal Normal 0021188472) BLOOD (test code = Negative Negative 2646455947) KETONES (test code = Negative Negative 1461172959) PROTEIN (test code = Negative Negative 2887-8) UROBILIN (test code = Normal Normal 9597439653) BILIRUBIN (test code = Negative Negative 1926163762) NITRITE (test code = Negative Negative 1638938751) LEUK ROGER (test code = Negative Negative 7713139393) RBC/HPF (test code = See_Comment H [Autom ated message] 2713727117) The system [email or web address] generated this result transmitted ref erence range: 0 - 3 HP F. The reference range was not used to int erpret this result as normal/abnormal . WBC/HPF (test code = See_Comment [Autom ated message] 0599658283) The system [email or web address] generated this result transmitted ref erence range: 0 - 5 HP F. The reference range was not used to int erpret this result as normal/abnormal . BACTERIA (test code = Negative Negative 0444673783) MUCOUS (test code = Moderate Negative LPF A 6551150225) CA OXALATE (test code = See_Comment [Au tomated message] 8481732977) The system [email or web address] generated this result transmitted ref erence range: <=1 HPF. The reference range was not used to int erpret this result as normal/abnormal . SPERM (test code = See_Comment H [Automat ed message] 1891907446) The system [email or web address] generated this result transmitted ref erence range: <=1 HPF. The reference range was not used to int erpret this result as normal/abnormal . HYAL CAST (test code = See_Comment H [Aut omated message] 6213708638) The system [email or web address] generated this result transmitted ref erence range: <=2 LPF. The reference range was not used to int erpret this result as normal/abnormal . Lab Interpretation (test Abnormal code = 81869-1) [facility]BDOM[facility] P[facility] W [id number] 13:22:00CT Abdomen and Pelvis with intravenous contrast. [...] infection. Left seminal vesicleshowed no significant enhancement. [facility], Radiant Results Inft User - 06/05/2020 8:23 [...] sign of infection. Left seminal vesicleshowed no significantenhancement.[facility] AreaSahil [id number] 12:40:00 Test Item Value Reference Range Interpretation Comments TROPONIN I (test <0.012 See_Comment [Automated code = 0985907439) message] The system which generated this result [...] ? Lab Interpretation Normal (test code = 98395-8) [facility] Metabolic Panel (NA, K, CL, CO2, GLUCOSE, BUN, CREATININE, CA)2020-06-05 12:28:00 Test Item Value Reference Range Interpretation Comments NA (test code = 139 mmol/L 135-145 1040710205) K (test code = 4.4 mmol/L 3.5-5 2026381394) CL (test code = 112 mmol/L 98-108 H 5809865388) CO2 TOTAL (test code = 24 mmol/L 23-31 1094864896) AGAP (test code = 2-16 9003786939) BUN (test code = 23 mg/dL 7-23 8409626311) GLUCOSE (test code = 88 mg/dL 70-110 9980931897) CREATININE (test code = 0.96 mg/dL 0.6-1.25 4930151548) CALCIUM (test code = 9.5 mg/dL 8.6-10.6 4220054089) eGFR Calculation mL/min/1.73m2 (Non-) (test code = 8719305942) eGFR Calculation mL/min/1.73m2 () (test code = 0725587453) GILBERTO (test code = GILBERTO) Association of [...] tests). Lab Interpretation Abnormal (test code = 96380-5) [facility] (ALB, T.PRO, BILI T, BU/BC, ALT, AST, ALK PHOS)2020-06-05 12:28:00 Test Item Value Reference Range Interpretation Comments TOTAL BILI (test code = 7561699574) 0.5 mg/dL 0.1-1.1 BILI UNCON (test code = 5627813501) 0.3 mg/dL 0.1-1.1 BILI CONJ (test code = 4847820625) 0.0 mg/dL 0-0.3 T PROTEIN (test code = 8112277319) 6.6 g/dL 6.3-8.2 ALBUMIN (test code = 2408240372) 3.7 g/dL 3.5-5 ALK PHOS (test code = 3432201641) 79 U/L 34-122 ALTv (test code = 1742-6) 23 U/L 5-50 AST(SGOT) (test code = 0664067382) 27 U/L 13-40 Lab Interpretation (test code = Normal 64187-5) [facility] [id number] 12:28:00 Test Item Value Reference Range Interpretation Comments LIPASE (test code = 9740259976) 150 U/L 0-220 Lab Interpretation (test code = Normal 93207-3) [facility] AreaCBC with [id number] 12:11:00 Test Item Value Reference Range Interpretation Comments WBC (test code = See_Comment [Automated 1390-2) message] The sy stem which generated this result transmitted reference range : 4.20 - 10.70 10*3/?L. The reference range was not used to interpret this result as normal/abnormal . RBC (test code = See_Comment L [Automated 559-8) message] The sy stem which generated this [...] (test code = 62.2 fL 38.5-51.6 H 99446-0) RDW-CV (test code = 20.0 % 12.1-15.4 H 788-0) PLT (test code = See_Comment [Automated 777-3) message] The sy stem which generated this result transmitted reference range : 150 - 328 10*3/ ?L. The reference r meredith was not used to interpret this result as normal/abnormal . MPV (test code = 10.0 fL 9.8-13 71423-0) NRBC/100 WBC (test See_Comment [Automat ed code = 8852233032) message] The system which generated this result transmitted reference range : 0.0 - 10.0 /100 WBCs. The refer ence range was not u sed to interpret th is result as normal/abnormal . NRBC x10^3 (test code <0.01 See_Comment [Auto mated = 7728631145) message] The s ystem which generated this result transmitted reference range : 10*3/?L. The reference range was not used to interpret this result as normal/abnormal . GRAN MAT (NEUT) % 65.7 % (test code = 770-8) IMM GRAN % (test code 0.30 % = 7220259870) LYMPH % (test code = 21.2 % 736-9) MONO % (test code = 10.0 % 5905-5) EOS % (test code = 2.3 % 713-8) BASO % (test code = 0.5 % 706-2) GRAN MAT x10^3(ANC) 3.99 10*3/uL 1.99-6.95 (test code = 1910850032) IMM GRAN x10^3 (test <0.03 0-0.06 code = 3696672323) LYMPH x10^3 (test code 1.29 10*3/uL 1.09-3.23 = 731-0) MONO x10^3 (test code 0.61 10*3/uL 0.36-1.02 = 742-7) EOS x10^3 (test code = 0.14 10*3/uL 0.06-0.53 711-2) BASO x10^3 (test code 0.03 10*3/uL 0.01-0.09 = 704-7) Lab Interpretation Abnormal (test code = 43752-9) [facility] AreaL[facility] Acid Whole [id number] 12:04:00 Test Item Value Reference Range Interpretation Comments LACTIC ACID (test code = 1.23 mmol/L 0539385023) [facility] AreaIR ABSCESS DRAIN [id number] 14:57:23 Successful abscessogram demonstrated unchanged position of [...] consentwas obtained. Prior to beginning the procedure, Parker Protocol was usedtoconfirm the patient's identity and planned procedure. Maximum sterilebarriers including cap, mask, momin nd hygiene, sterile gloves, sterile gown,large sterile drape and cutaneous antisepsis were used. The skin overlying the existing drainage catheter in the right upperquadrant of the abdomen was sterilely prepped, draped and infiltrated with1 percent lidocaine. A lead neurodiagnostic technologist image was documented prior to theinjection of contrast.Approximately 20 mL of contrast was injected through the existing catheterto delineate the collection cavity. Fluoroscopy imaging was obtained andarchived into PACS system. The tip of the catheter was in an unchangedposition compared to the most recent study. No catheter exchangeor removalwas performed. The catheter was reconnected to gravity drainage. A sterile dressing wasapplied. The patient tolerated the procedure well without immediatecomplication. COMPLICATIONS: None immediate. ESTIMATED BLOOD LOSS: None. DISCHARGED TO: To inpatient unit. CONDITION: Stable. FINDINGS: Images from the procedure revealed a small residual perihepatic cavity withunchanged position of the drainage catheter and with questionablefistulization to bowel. [facility], Radiant Results Inft User - 05/31/2020 [...] consentwas obtained. Prior to beginning the procedure, Parker Protocol was usedto confirm the patient's identity and planned procedure. Maximum sterilebarriers including cap, mask, hand hygiene, sterile gloves, sterile gown,large sterile drape and cutaneous antisepsis were used. The skin overlying the existing drainage catheter in the right upperquadrantof the abdomen was sterilely prepped, draped and infiltrated with1 percent lidocaine. A lead neurodiagnostic technologist image was documented prior to the injection of contrast.Approximately 20 mL of contrast was injected through the existing catheterto delineate the collection cavity. Fluoroscopy imaging was obtained andarchived into PACS system. The tip of the catheter was in an unchangedposition compared to the most recent study. No catheter exchange or removalwas performed.The catheter was reconnected to gravity drainage.A sterile dressing wasapplied. The patient tolerated the procedure well without immediatecomplication.COMPLICATIONS: None immediate.ESTIMATED BLOOD LOSS: None.DISCHARGED TO: To inpatient unit.CONDITION: Stable.FINDINGS: Images from the procedure revealed a small residual perihepatic cavity withunchanged position of the drainage catheter and with questionablefistulization to bowel.IMPRESSIONSuccessfulabscessogram demonstrated unchanged position of the pigtailcatheter within the right upper quadrant,with questionable fistulizationto bowel.PLAN: It is advised to leave the catheter in place for 6-8 weeks given thepossibility of fistula formation between the collection and the bowel toallow for maturation of the tract.According to Executive Order [place] 09 and emergency rule 22 [place] ?187.57(c), this procedure was deemed medicallynecessary to address a medical condition (statuspost drain placement inright abdomen fluid collection; no output for 3 consecutive days; needdrain evaluation and possible removal) which places this patient at riskfor serious adverse medical consequences or .Preliminary Report Dictated by Resident: Johnny Tilley.As the attending radiologist, I,Dr. Sadiq Gordon, was present inthe room during the entire procedure.I, Sadiq Gordon MD., have reviewed this study and agree with theabove report.[facility] (NA, K, CL, CO2, GLUCOSE, BUN, CREATININE, CA)2020-05-31 08:13:00 Test Item Value Reference Range Interpretation Comments NA (test code = 135 mmol/L 135-145 1021792475) K (test code = 4.1 mmol/L 3.5-5 9150003758) CL (test code = 99 mmol/L 98-108 4373722120) CO2 TOTAL (test code = 32 mmol/L 23-31 H 4637616013) AGAP (test code = 2-16 9071409083) BUN (test code = 14 mg/dL 7-23 0445248266) GLUCOSE (test code = 89 mg/dL 70-110 5743290758) CREATININE (test code = 0.67 mg/dL 0.6-1.25 8560106266) CALCIUM (test code = 8.2 mg/dL 8.6-10.6 L 4712266970) eGFR Calculation mL/min/1.73m2 (Non-) (test code = 5457259393) eGFR Calculation mL/min/1.73m2 () (test code = 6647707351) GILBERTO (test code = GILBERTO) Association of [...] tests). Lab Interpretation Abnormal (test code = 25759-0) [facility]2020-10-08 08:13:00 Test Item Value Reference Range Interpretation Comments MAGNESIUM (test code = 9394073827) 1.8 mg/dL 1.7-2.4 Lab Interpretation (test code = Normal 81316-6) [facility]PHOSPHORUS2020-10-08 08:13:00 Test Item Value Reference Range Interpretation Comments PHOSPHORUS (test code = 1012703144) 5.2 mg/dL 2.5-5 H Lab Interpretation (test code = Abnormal 75461-6) [facility] AreaCB WITH [id number] 08:05:00 Test Item Value Reference Range Interpretation [...] (test code = 57.9 fL 38.5-51.6 H 93084-8) RDW-CV (test code = 18.7 % 12.1-15.4 H 788-0) PLT (test code = See_Comment [Automated 777-3) message] The sy stem which generated this result transmitted reference range : 150 - 328 10*3/ ?L. The reference r meredith was not used to interpret this result as normal/abnormal . MPV (test code = 10.3 fL 9.8-13 05561-8) NRBC/100 WBC (test See_Comment [Automat ed code = 8577951879) message] The system which generated this result transmitted reference range : 0.0 - 10.0 /100 WBCs. The refer ence range was not u sed to interpret th is result as normal/abnormal . NRBC x10^3 (test code <0.01 See_Comment [Auto mated = 7441224556) message] The s ystem which generated this result transmitted reference range : 10*3/?L. The reference range was not used to interpret this result as normal/abnormal . GRAN MAT (NEUT) % 56.4 % (test code = 770-8) IMM GRAN % (test code 0.50 % = 1576688997) LYMPH % (test code = 26.2 % 736-9) MONO % (test code = 12.2 % 5905-5) EOS % (test code = 4.2 % 713-8) BASO % (test code = 0.5 % 706-2) GRAN MAT x10^3(ANC) 2.31 10*3/uL 1.99-6.95 (test code = 8451174122) IMM GRAN x10^3 (test <0.03 0-0.06 code = 0029140076) LYMPH x10^3 (test code 1.07 10*3/uL 1.09-3.23 L = 731-0) MONO x10^3 (test code 0.50 10*3/uL 0.36-1.02 = 742-7) EOS x10^3 (test code = 0.17 10*3/uL 0.06-0.53 711-2) BASO x10^3 (test code <0.03 0.01-0.09 = 704-7) Lab Interpretation Abnormal (test code = 89066-2) [facility] METABOLIC PANEL (NA, K, CL, CO2, GLUCOSE, BUN, CREATININE, CA)2020-05-30 09:04:00 Test Item Value Reference Range Interpretation Comments NA (test code = 138 mmol/L 135-145 8877377101) K (test code = 4.4 mmol/L 3.5-5 0937004917) CL (test code = 99 mmol/L 98-108 5292276066) CO2 TOTAL (test code = 33 mmol/L 23-31 H 5439666107) AGAP (test code = 2-16 1349680226) BUN (test code = 18 mg/dL 7-23 4309049957) GLUCOSE (test code = 86 mg/dL 70-110 7456312270) CREATININE (test code = 0.61 mg/dL 0.6-1.25 9536473104) CALCIUM (test code = 8.1 mg/dL 8.6-10.6 L 9796555462) eGFR Calculation mL/min/1.73m2 (Non-) (test code = 9924286963) eGFR Calculation mL/min/1.73m2 () (test code = 5553672946) GILBERTO (test code = GILBERTO) Association of [...] tests). Lab Interpretation Abnormal (test code = 70445-0) [facility]2020-10-07 09:04:00 Test Item Value Reference Range Interpretation Comments MAGNESIUM (test code = 4470300643) 2.0 mg/dL 1.7-2.4 Lab Interpretation (test code = Normal 89066-1) [facility]2020-10-07 09:04:00 Test Item Value Reference Range Interpretation Comments PHOSPHORUS (test code = 0805475518) 4.6 mg/dL 2.5-5 Lab Interpretation (test code = Normal 34771-3) [facility] (NA, K, CL, CO2, GLUCOSE, BUN, CREATININE, CA)2020-05-29 07:31:00 Test Item Value Reference Range Interpretation Comments NA (test code = 135 mmol/L 135-145 6669013154) K (test code = 4.0 mmol/L 3.5-5 0014190423) CL (test code = 100 mmol/L 98-108 2386684236) CO2 TOTAL (test code = 32 mmol/L 23-31 H 6574283970) AGAP (test code = 2-16 0811915805) BUN (test code = 19 mg/dL 7-23 8840517230) GLUCOSE (test code = 86 mg/dL 70-110 7175141897) CREATININE (test code = 0.68 mg/dL 0.6-1.25 7645980236) CALCIUM (test code = 8.0 mg/dL 8.6-10.6 L 9100730022) eGFR Calculation mL/min/1.73m2 (Non-) (test code = 3158395467) eGFR Calculation mL/min/1.73m2 () (test code = 2264711085) GILBERTO (test code = GILBERTO) Association of [...] tests). Lab Interpretation Abnormal (test code = 81929-7) [facility]2020-10-06 07:31:00 Test Item Value Reference Range Interpretation Comments MAGNESIUM (test code = 1573930501) 1.6 mg/dL 1.7-2.4 L Lab Interpretation (test code = Abnormal 12666-3) [facility]2020-10-06 07:31:00 Test Item Value Reference Range Interpretation Comments PHOSPHORUS (test code = 1913745590) 3.5 mg/dL 2.5-5 Lab Interpretation (test code = Normal 82901-7) [facility] AreaASPIRATE OR ABSCESS CULTURE(AEROBIC/ANAEROBIC) 2020-05-28 12:35:00 Test Item Value Reference Range Interpretation Comments Aspirate or Abscess No aerobic/anaerobic Culture (test code = organisms isolated 98957-8) Gram stain (test code Occasional (Rare) = 664-3) Mononuclear cells [facility] MET[facility]OLIC PANEL (NA, K, CL, CO2, GLUCOSE, BUN, CREATININE, CA)2020-05-28 09:36:00 Test Item Value Reference Range Interpretation Comments NA (test code = 136 mmol/L 135-145 6699156151) K (test code = 4.3 mmol/L 3.5-5 8578424690) CL (test code = 102 mmol/L 98-108 4614680349) CO2 TOTAL (test code = 31 mmol/L 23-31 1544022268) AGAP (test code = 2-16 3730293059) BUN (test code = 25 mg/dL 7-23 H 1790869437) GLUCOSE (test code = 87 mg/dL 70-110 7051722832) CREATININE (test code = 0.65 mg/dL 0.6-1.25 8789338833) CALCIUM (test code = 8.2 mg/dL 8.6-10.6 L 8944160109) eGFR Calculation mL/min/1.73m2 (Non-) (test code = 6158382339) eGFR Calculation mL/min/1.73m2 () (test code = 8525110959) GILBERTO (test code = GILBERTO) Association of [...] tests). Lab Interpretation Abnormal (test code = 24102-9) [facility] Test Item Value Reference Range Interpretation Comments MAGNESIUM (test code = 5505685606) 1.6 mg/dL 1.7-2.4 L Lab Interpretation (test code = Abnormal 66451-3) [facility]2020-10-05 09:36:00 Test Item Value Reference Range Interpretation Comments PHOSPHORUS (test code = 1214970789) 2.6 mg/dL 2.5-5 Lab Interpretation (test code = Normal 86662-6) [facility] (NA, K, CL, CO2, GLUCOSE, BUN, CREATININE, CA)2020-05-27 10:13:00 Test Item Value Reference Range Interpretation Comments NA (test code = 135 mmol/L 135-145 4882150709) K (test code = 3.9 mmol/L 3.5-5 5989007217) CL (test code = 103 mmol/L 98-108 6170405748) CO2 TOTAL (test code = 28 mmol/L 23-31 3865836133) AGAP (test code = 2-16 3956821137) BUN (test code = 20 mg/dL 7-23 7428174674) GLUCOSE (test code = 95 mg/dL 70-110 5902358212) CREATININE (test code = 0.67 mg/dL 0.6-1.25 7739297690) CALCIUM (test code = 8.2 mg/dL 8.6-10.6 L 7449428693) eGFR Calculation mL/min/1.73m2 (Non-) (test code = 8960494317) eGFR Calculation mL/min/1.73m2 () (test code = 0860656373) GILBERTO (test code = GILBERTO) Association of [...] tests). Lab Interpretation Abnormal (test code = 58069-5) [facility]2020-10-04 10:13:00 Test Item Value Reference Range Interpretation Comments MAGNESIUM (test code = 7631900813) 1.5 mg/dL 1.7-2.4 L Lab Interpretation (test code = Abnormal 58975-1) [facility]2020-10-04 10:13:00 Test Item Value Reference Range Interpretation Comments PHOSPHORUS (test code = 9922973599) 3.4 mg/dL 2.5-5 Lab Interpretation (test code = Normal 49137-5) [facility] CHANGE OF ABSCESS [id number] 17:06:27 Successful removal of the left upper quadrant drainage catheter. Replacement of the right upper quadrant catheter into the most superiorsegment of the collection with a new 10 Niuean pigtail catheter.PLAN: This tube should be flushed with 10 of saline twice a day. ?We willcontinue to monitor the output of the catheter while the patient isin-house. If the patient is discharged prior to catheter removal, follow-upwith VIR is recommended in 7-10 ?days. This can be arranged by [email or web address]. Preliminary Report Dictated by Resident: Johnny Tilley [...] from those actually performing theprocedure. Please see [facility] for sedation time. RADIATION DOSE: 33.0 mGy. TECHNIQUE: The risks, benefits and alternativeswere discussed and informed consentwas obtained. Prior to beginning the procedure, Parker Protocol was usedto confirm the patient's identity [...] of the pigtailcatheters within the respective collections. [facility], Radiant Results Inft User - 05/26/2020 12:07 PM CDTEXAMINATION: 1. PERCUTANEOUS PERIHEPATIC DRAINAGE REPLACEMENT2. LEFT UPPER QUADRANT DRAINAGE REMOVAL.HISTORY: 50 years-old; Male; abscess ATTENDEES: Attending radiologist: Nixon Perez; Resident: Dr. Johnny Tilley;Contributing VIR Fellow: Dr. Vance Stafford.SEDATION: Moderate sedation was administered under the attendingphysician's direction and continuous monitoring by a trained nursespecialist who was independent from those actually performing theprocedure. Please see [facility] for sedation time.RADIATION DOSE: 33.0 mGy.TECHNIQUE: The risks, benefits andalternatives were discussed and informed consentwas obtained. Prior to beginning the procedure, Parker Protocol was usedto confirm the patient's identity [...] of the collection with a new 10 Niuean pigtail catheter.PLAN: This tube should be flushed with 10 of saline twice a day. We willcontinue to monitor the output of the catheter while the patient isin-house. If the patient is discharged prior to catheter removal, follow-upwith VIR is recommended in 7-10 days. This can be arranged by [id number].Preliminary Report Dictated by Resident: Turner MoshksarI, as teaching physician, was present during the entire procedure and/orduring the botello components.Nixon Damon MD., have reviewed this study and agree with theabove report.[facility] ASPIRATION ABSCESS BULLA OR CYST BY [id number] 17:06:16 Successful ultrasound-guided aspiration of intrahepatic small [...] consentwas obtained. Prior to beginning the procedure, Parker Protocol was usedto confirm the patient's identity and planned procedure. Maximum sterilebarriers including cap, mask, hand hygiene, sterile gloves, sterile gown,large sterile drape and cutaneous antisepsis were used. The skin overlying the right mid abdomen was sterilely prepped, draped andinfiltrated with 1percent lidocaine. The targeted infrahepatic small collection was then accessed with [id number] micropuncture needle using imaging guidance which includedultrasound. [...] consentwas obtained. Prior to beginning the procedure, Parker Protocol was usedto confirm the patient's identity and planned procedure. Maximum sterilebarriers including cap, mask, hand hygiene, sterile gloves, sterile gown,large sterile drape and cutaneous antisepsis were used. The skin overlying the right mid abdomen was sterilely prepped, draped andinfiltrated with 1 percent lidocaine. The targeted infrahepatic small collection was then accessed with [id number] micropuncture needle using imaging guidance which includ [...] agree with theabove report.[facility] (NA, K, CL, CO2, GLUCOSE, BUN, CREATININE, CA) 2020-05-26 10:13:00 Test Item Value Reference Range Interpretation Comments NA (test code = 135 mmol/L 135-145 8427037586) K (test code = 4.4 mmol/L 3.5-5 9001592924) CL (test code = 107 mmol/L 98-108 8285896699) CO2 TOTAL (test code = 23 mmol/L 23-31 0425218756) AGAP (test code = 2-16 2956038280) BUN (test code = 18 mg/dL 7-23 4536096813) GLUCOSE (test code = 101 mg/dL 70-110 9928924599) CREATININE (test code = 0.61 mg/dL 0.6-1.25 8032807147) CALCIUM (test code = 8.1 mg/dL 8.6-10.6 L 7098683795) eGFR Calculation mL/min/1.73m2 (Non-) (test code = 3390678237) eGFR Calculation mL/min/1.73m2 () (test code = 2599192959) GILBERTO (test code = GILBERTO) Association of [...] tests). Lab Interpretation Abnormal (test code = 68206-1) [facility]2020-10-03 10:13:00 Test Item Value Reference Range Interpretation Comments MAGNESIUM (test code = 6038759730) 1.7 mg/dL 1.7-2.4 Lab Interpretation (test code = Normal 50298-0) [facility]2020-10-03 10:13:00 Test Item Value Reference Range Interpretation Comments PHOSPHORUS (test code = 0567922838) 3.4 mg/dL 2.5-5 Lab Interpretation (test code = Normal 70339-0) [facility] AreaXR [id number] 23:20:33 Positioning dictated draining the right upper [...] are identified. No acutebony abnormality is present. [facility], Radiant Results Inft User - 05/25/2020 6:21 [...] agree with theabove report.[facility] (NA, K, CL, CO2, GLUCOSE, BUN, CREATININE, CA)2020-05-25 22:49:00 Test Item Value Reference Range Interpretation Comments NA (test code = 136 mmol/L 135-145 5464500767) K (test code = 4.5 mmol/L 3.5-5 5827812092) CL (test code = 105 mmol/L 98-108 3558963931) CO2 TOTAL (test code = 22 mmol/L 23-31 L 1862941761) AGAP (test code = 2-16 4131376796) BUN (test code = 24 mg/dL 7-23 H 1443074600) GLUCOSE (test code = 101 mg/dL 70-110 5282706280) CREATININE (test code = 0.74 mg/dL 0.6-1.25 6389134383) CALCIUM (test code = 8.6 mg/dL 8.6-10.6 2416796318) eGFR Calculation mL/min/1.73m2 (Non-) (test code = 5469894968) eGFR Calculation mL/min/1.73m2 () (test code = 9762279803) GILBERTO (test code = GILBERTO) Association of [...] tests). Lab Interpretation Abnormal (test code = 44813-1) [facility]2020-10-02 22:11:00 Test Item Value Reference Range Interpretation Comments MAGNESIUM (test code = 2790817207) 2.0 mg/dL 1.7-2.4 Lab Interpretation (test code = Normal 84064-9) [facility]2020-10-02 22:11:00 Test Item Value Reference Range Interpretation Comments PHOSPHORUS (test code = 6131657851) 3.1 mg/dL 2.5-5 Lab Interpretation (test code = Normal 23385-1) [facility] WITH [id number] 21:51:00 Test Item Value Reference Range Interpretation [...] (test code = 53.1 fL 38.5-51.6 H 92847-2) RDW-CV (test code = 17.9 % 12.1-15.4 H 788-0) PLT (test code = See_Comment [Automated 777-3) message] The sy stem which generated this result transmitted reference range : 150 - 328 10*3/ ?L. The reference r meredith was not used to interpret this result as normal/abnormal . MPV (test code = 9.1 fL 9.8-13 L 58885-8) NRBC/100 WBC (test See_Comment [Automat ed code = 0983490657) message] The system which generated this result transmitted reference range : 0.0 - 10.0 /100 WBCs. The refer ence range was not u sed to interpret th is result as normal/abnormal . NRBC x10^3 (test code <0.01 See_Comment [Auto mated = 9063442214) message] The s ystem which generated this result transmitted reference range : 10*3/?L. The reference range was not used to interpret this result as normal/abnormal . GRAN MAT (NEUT) % 73.4 % (test code = 770-8) IMM GRAN % (test code 0.50 % = 6489030651) LYMPH % (test code = 17.9 % 736-9) MONO % (test code = 5.2 % 5905-5) EOS % (test code = 2.5 % 713-8) BASO % (test code = 0.5 % 706-2) GRAN MAT x10^3(ANC) 4.05 10*3/uL 1.99-6.95 (test code = 7714209300) IMM GRAN x10^3 (test 0.03 10*3/uL 0-0.06 code = 6227872658) LYMPH x10^3 (test code 0.99 10*3/uL 1.09-3.23 L = 731-0) MONO x10^3 (test code 0.29 10*3/uL 0.36-1.02 L = 742-7) EOS x10^3 (test code = 0.14 10*3/uL 0.06-0.53 711-2) BASO x10^3 (test code 0.03 10*3/uL 0.01-0.09 = 704-7) Lab Interpretation Abnormal (test code = 07497-6) [facility] METABOLIC PANEL (NA, K, CL, CO2, GLUCOSE, BUN, CREATININE, CA)2020-05-25 09:24:00 Test Item Value Reference Range Interpretation Comments NA (test code = 135 mmol/L 135-145 7702034556) K (test code = 5.3 mmol/L 3.5-5 H Slight 7761973602) hemolysis CL (test code = 104 mmol/L 98-108 6674668701) CO2 TOTAL (test code 24 mmol/L 23-31 = 8445956089) AGAP (test code = 2-16 8669797144) BUN (test code = 22 mg/dL 7-23 Slight 6559864547) hemolysis GLUCOSE (test code = 96 mg/dL 70-110 0016716083) CREATININE (test code 0.73 mg/dL 0.6-1.25 = 8116064195) CALCIUM (test code = 8.2 mg/dL 8.6-10.6 L 2352813429) eGFR Calculation mL/min/1.73m2 (Non-) (test code = 8723755448) eGFR Calculation mL/min/1.73m2 () (test code = 9828392379) GILBERTO (test code = GILBERTO) Association of [...] tests). Lab Interpretation Abnormal (test code = 17283-0) [facility] [facility] 09:24:00 Test Item Value Reference Range Interpretation Comments MAGNESIUM (test code = 1988984046) 2.3 mg/dL 1.7-2.4 Lab Interpretation (test code = Normal 36204-3) [facility]2020-[facility]-02 09:24:00 Test Item Value Reference Range Interpretation Comments PHOSPHORUS (test code = 6672154903) 3.4 mg/dL 2.5-5 Lab Interpretation (test code = Normal 07879-7) [facility] (NA, K, CL, CO2, GLUCOSE, BUN, CREATININE, CA)2020-05-24 21:00:00 Test Item Value Reference Range Interpretation Comments NA (test code = 135 mmol/L 135-145 6826714846) K (test code = 4.3 mmol/L 3.5-5 3372939773) CL (test code = 102 mmol/L 98-108 5757087154) CO2 TOTAL (test code = 25 mmol/L 23-31 9385139692) AGAP (test code = 2-16 5954475007) BUN (test code = 20 mg/dL 7-23 9326095535) GLUCOSE (test code = 102 mg/dL 70-110 0041889406) CREATININE (test code 0.97 mg/dL 0.6-1.25 = 5537784610) CALCIUM (test code = 9.0 mg/dL 8.6-10.6 7676738164) eGFR Calculation mL/min/1.73m2 (Non-) (test code = 2111888911) eGFR Calculation mL/min/1.73m2 () (test code = 4223763521) GILBERTO (test code = GILBERTO) Association of [...] in imaging tests). [facility]2020-[facility]-01 21:00:00 Test Item Value Reference Range Interpretation Comments MAGNESIUM (test code = 3927499380) 1.5 mg/dL 1.7-2.4 L Lab Interpretation (test code = Abnormal 18048-8) [facility]2020-10-01 20:58:00 Test Item Value Reference Range Interpretation Comments PHOSPHORUS (test code = 3861731354) 3.3 mg/dL 2.5-5 Lab Interpretation (test code = Normal 00926-6) [facility] with [id number] 11:31:00 Test Item Value Reference Range Interpretation [...] (test code = 51.9 fL 38.5-51.6 H 62496-0) RDW-CV (test code = 17.6 % 12.1-15.4 H 788-0) PLT (test code = See_Comment H [Automated 777-3) message] The sy stem which generated this result transmitted reference range : 150 - 328 10*3/ ?L. The reference r meredith was not used to interpret this result as normal/abnormal . MPV (test code = 9.0 fL 9.8-13 L 03651-5) NRBC/100 WBC (test See_Comment [Automat ed code = 7280915785) message] The system which generated this result transmitted reference range : 0.0 - 10.0 /100 WBCs. The refer ence range was not u sed to interpret th is result as normal/abnormal . NRBC x10^3 (test code <0.01 See_Comment [Auto mated = 8375532625) message] The s ystem which generated this result transmitted reference range : 10*3/?L. The reference range was not used to interpret this result as normal/abnormal . GRAN MAT (NEUT) % 66.0 % (test code = 770-8) IMM GRAN % (test code 0.20 % = 1343814408) LYMPH % (test code = 20.3 % 736-9) MONO % (test code = 10.4 % 5905-5) EOS % (test code = 2.6 % 713-8) BASO % (test code = 0.5 % 706-2) GRAN MAT x10^3(ANC) 4.33 10*3/uL 1.99-6.95 (test code = 3226565736) IMM GRAN x10^3 (test <0.03 0-0.06 code = 2821308843) LYMPH x10^3 (test code 1.33 10*3/uL 1.09-3.23 = 731-0) MONO x10^3 (test code 0.68 10*3/uL 0.36-1.02 = 742-7) EOS x10^3 (test code = 0.17 10*3/uL 0.06-0.53 711-2) BASO x10^3 (test code 0.03 10*3/uL 0.01-0.09 = 704-7) Lab Interpretation Abnormal (test code = 97081-5) [facility] PEL[facility] W [id number] 17:39:05 Since 05/19/2020 slight increase in size [...] drains insitu as above.[facility] (NA, K, CL, CO2, Glucose, BUN, Creatinine, CA)2020-05-23 10:25:00 Test Item Value Reference Range Interpretation Comments NA (test code = 135 mmol/L 135-145 5706071938) K (test code = 3.7 mmol/L 3.5-5 2538578291) CL (test code = 105 mmol/L 98-108 0814376012) CO2 TOTAL (test code = 24 mmol/L 23-31 7167409365) AGAP (test code = 2-16 7839558470) BUN (test code = 19 mg/dL 7-23 2184888818) GLUCOSE (test code = 117 mg/dL 70-110 H 1276113070) CREATININE (test code = 0.74 mg/dL 0.6-1.25 3259945020) CALCIUM (test code = 7.3 mg/dL 8.6-10.6 L 1077752422) eGFR Calculation mL/min/1.73m2 (Non-) (test code = 3828378623) eGFR Calculation mL/min/1.73m2 () (test code = 6015875216) GILBERTO (test code = GILBERTO) Association of [...] tests). Lab Interpretation Abnormal (test code = 29655-6) [facility] COVID-19 [id number] 07:40:00 Test Item Value Reference Range Interpretation Comments SARS-CoV-2 Rapid ID NOW Not Detected Not Detected (test code = 55424-7) GILBERTO (test code = GILBERTO) ID NOW COVID-19 Assay is an isothermal nucleic acid amplification test intended for the qualitative detection of nucleic acid from SARS-CoV-2 viral RNA in nasopharyngeal (COATER SMOKING PIPE) specimens. It is used under Emergency Use [...] indicated. Lab Interpretation Normal (test code = 49672-1) [facility] AreaUrinalysis2020-09-29 22:41:00 Test Item Value Reference Range Interpretation Comments APPEARANCE (test code = Hazy Clear A 9087078024) COLOR (test code = Yellow Yellow 7033571718) PH (test code = 4.8-8.0 5313334684) SP GRAVITY (test code = 1.003-1.030 2688044587) GLU U QUAL (test code = Normal Normal 6273287516) BLOOD (test code = Negative Negative 5783450317) KETONES (test code = Negative Negative 9652351863) PROTEIN (test code = 30 mg/dL Negative A 2887-8) UROBILIN (test code = Normal Normal 3970552402) BILIRUBIN (test code = Negative Negative 8828110017) NITRITE (test code = Negative Negative 1528487642) LEUK ROGER (test code = Negative Negative 1547767951) RBC/HPF (test code = See_Comment H [Autom ated message] 8541321394) The system [email or web address] generated this result transmitted ref erence range: 0 - 3 HP F. The reference range was not used to int erpret this result as normal/abnormal . WBC/HPF (test code = See_Comment H [Autom ated message] 4869380384) The system [email or web address] generated this result transmitted ref erence range: 0 - 5 HP F. The reference range was not used to int erpret this result as normal/abnormal . BACTERIA (test code = Negative Negative 1455120784) MUCOUS (test code = Moderate Negative LPF A 2743176705) SQ EPITH (test code = See_Comment [Auto mated message] 8945455495) The system [email or web address] generated this result transmitted ref erence range: <=2 HPF. The reference range was not used to int erpret this result as normal/abnormal . CA OXALATE (test code = See_Comment H [Au tomated message] 2755002599) The system [email or web address] generated this result transmitted ref erence range: <=1 HPF. The reference range was not used to int erpret this result as normal/abnormal . HYAL CAST (test code = See_Comment H [Aut omated message] 5071687942) The system [email or web address] generated this result transmitted ref erence range: <=2 LPF. The reference range was not used to int erpret this result as normal/abnormal . Lab Interpretation (test Abnormal code = 61881-3) [facility] Metabolic Panel (NA, K, CL, CO2, GLUCOSE, BUN, CREATININE, CA)2020-05-22 21:46:00 Test Item Value Reference Range Interpretation Comments NA (test code = 134 mmol/L 135-145 L 8363528824) K (test code = 5.0 mmol/L 3.5-5 3536419065) CL (test code = 103 mmol/L 98-108 3538976092) CO2 TOTAL (test code = 25 mmol/L 23-31 2377305512) AGAP (test code = 2-16 5606862402) BUN (test code = 24 mg/dL 7-23 H 7380326074) GLUCOSE (test code = 102 mg/dL 70-110 8862416474) CREATININE (test code = 0.87 mg/dL 0.6-1.25 0381317731) CALCIUM (test code = 9.2 mg/dL 8.6-10.6 0864622805) eGFR Calculation mL/min/1.73m2 (Non-) (test code = 6874562690) eGFR Calculation mL/min/1.73m2 () (test code = 3582562422) GILBERTO (test code = GILBERTO) Association of [...] tests). Lab Interpretation Abnormal (test code = 29818-0) [facility] (ALB, T.PRO, BILI T, BU/BC, ALT, AST, ALK PHOS)2020-05-22 21:46:00 Test Item Value Reference Range Interpretation Comments TOTAL BILI (test code = 8890664207) 0.4 mg/dL 0.1-1.1 BILI UNCON (test code = 7223287775) 0.2 mg/dL 0.1-1.1 BILI CONJ (test code = 3470166308) 0.0 mg/dL 0-0.3 T PROTEIN (test code = 0848635256) 6.5 g/dL 6.3-8.2 ALBUMIN (test code = 9937798777) 3.6 g/dL 3.5-5 ALK PHOS (test code = 5596486887) 96 U/L 34-122 ALTv (test code = 1742-6) 22 U/L 5-50 AST(SGOT) (test code = 4105546694) 28 U/L 13-40 Lab Interpretation (test code = Normal 07842-3) [facility] AreaLipase Knhtr3960-81-03 21:46:00 Test Item Value Reference Range Interpretation Comments LIPASE (test code = 9156419339) 95 U/L 0-220 Lab Interpretation (test code = Normal 66630-5) [facility] AreaaPTT2020-09-29 21:46:00 Test Item Value Reference Range Interpretation Comments APTT Patient (test code = See_Comment [ Automated message] 3173-2) The system [email or web address] generated this result transmitted ref erence range: 26 - 36 Seconds. The re ference range was not u sed to interpret this result as normal/abnor mal. Lab Interpretation (test Normal code = 30268-6) [facility] AreaProthrombin Time (PT) / [id number] 21:46:00 Test Item Value Reference Range Interpretation Comments PROTIME PATIENT (test See_Comment H [Auto mated message] code = 5964-2) The system [employer] generated this result transmitted ref erence range: 10.1 - 1 2.6 Seconds. The reference range was not used to int erpret this result as normal/abnormal . INR (test code = 6301-6) Nor mal INR <1.1; Warfarin Therap eutic range 2.0 to 3. 0 or 2.5 to 3.5, dep ending upon the indica tions. Lab Interpretation (test Abnormal code = 67648-0) [facility] with [id number] 21:41:00 Test Item Value Reference Range Interpretation [...] (test code = 53.0 fL 38.5-51.6 H 42143-2) RDW-CV (test code = 17.6 % 12.1-15.4 H 788-0) PLT (test code = See_Comment H [Automated 777-3) message] The sy stem which generated this result transmitted reference range : 150 - 328 10*3/ ?L. The reference r meredith was not used to interpret this result as normal/abnormal . MPV (test code = 9.1 fL 9.8-13 L 46505-1) NRBC/100 WBC (test See_Comment [Automat ed code = 4758696995) message] The system which generated this result transmitted reference range : 0.0 - 10.0 /100 WBCs. The refer ence range was not u sed to interpret th is result as normal/abnormal . NRBC x10^3 (test code <0.01 See_Comment [Auto mated = 6154484904) message] The s [employer] which generated this result transmitted reference range : 10*3/?L. The reference range was not used to interpret this result as normal/abnormal . GRAN MAT (NEUT) % 77.4 % (test code = 770-8) IMM GRAN % (test code 0.50 % = 8706198444) LYMPH % (test code = 15.8 % 736-9) MONO % (test code = 4.9 % 5905-5) EOS % (test code = 0.8 % 713-8) BASO % (test code = 0.6 % 706-2) GRAN MAT x10^3(ANC) 5.04 10*3/uL 1.99-6.95 (test code = 5756260690) IMM GRAN x10^3 (test 0.03 10*3/uL 0-0.06 code = 4293634298) LYMPH x10^3 (test code 1.03 10*3/uL 1.09-3.23 L = 731-0) MONO x10^3 (test code 0.32 10*3/uL 0.36-1.02 L = 742-7) EOS x10^3 (test code = 0.05 10*3/uL 0.06-0.53 L 711-2) BASO x10^3 (test code 0.04 10*3/uL 0.01-0.09 = 704-7) Lab Interpretation Abnormal (test code = 23323-8) [facility] 1 [id number] 21:19:32CHEST ONE VIEW HISTORY: ?Weakness TECHNIQUE: ?AP [...] suggests a leftpleural effusion.[facility] (ID NOW RAPID TESTING) 2020-05-20 10:09:00 Test Item Value Reference Range Interpretation Comments SARS-CoV-2 Rapid ID NOW Not Detected Not Detected (test code = 75667-9) GILBERTO (test code = GILBERTO) ID NOW COVID-19 Assay is an isothermal nucleic acid amplification test intended for the qualitative detection of nucleic acid from SARS-CoV-2 viral RNA in nasopharyngeal (COATER SMOKING PIPE) specimens. It is used under Emergency Use [...] indicated. Lab Interpretation Normal (test code = 96590-1) [facility] AreaURINALYSIS2020-09-27 10:07:00 Test Item Value Reference Range Interpretation Comments APPEARANCE (test code = Clear Clear 2813669325) COLOR (test code = Yellow Yellow 7569895406) PH (test code = 4.8-8.0 1350722564) SP GRAVITY (test code = 1.003-1.030 H 1877621355) GLU U QUAL (test code = Normal Normal 7018836747) BLOOD (test code = Negative Negative 7390474845) KETONES (test code = Negative Negative 1261169265) PROTEIN (test code = Negative Negative 2887-8) UROBILIN (test code = Normal Normal 5922024203) BILIRUBIN (test code = Negative Negative 1320906987) NITRITE (test code = Negative Negative 9530462794) LEUK ROGER (test code = Negative Negative 2471870591) RBC/HPF (test code = See_Comment [Autom ated message] 9819717782) The system [email or web address] generated this result transmitted ref erence range: 0 - 3 HP F. The reference range was not used to int erpret this result as normal/abnormal . WBC/HPF (test code = See_Comment [Autom ated message] 9942087774) The system [email or web address] generated this result transmitted ref erence range: 0 - 5 HP F. The reference range was not used to int erpret this result as normal/abnormal . BACTERIA (test code = Negative Negative 8884406177) MUCOUS (test code = Slight Negative LPF A 1996570753) SQ EPITH (test code = See_Comment [Auto mated message] 2956516645) The system [email or web address] generated this result transmitted ref erence range: <=2 HPF. The reference range was not used to int erpret this result as normal/abnormal . HYAL CAST (test code = See_Comment H [Aut omated message] 7275432701) The system [email or web address] generated this result transmitted ref erence range: <=2 LPF. The reference range was not used to int erpret this result as normal/abnormal . Lab Interpretation (test Abnormal code = 67035-5) [facility] P[facility] W [id number] 04:28:40Impression: 1. Multiple rim-enhancing fluid and gas [...] effusions, possiblyloculated on the left. RL: 2824AFC: 99586 End of Report Exam: CT Abdomen and [...] pleural effusions, possiblyloculated on the left.RL: 2824AFC: 31531Uae of Report [facility] [id number] 03:44:00 Test Item Value Reference Range Interpretation Comments TROPONIN I (test 0.001 ng/mL See_Comment [Automated code = 8244993194) message] The system which generated this result [...] ? Lab Interpretation Normal (test code = 33303-2) [facility]. METABOLIC PANEL (01819)2020-05-20 03:33:00 Test Item Value Reference Range Interpretation Comments NA (test code = 138 mmol/L 135-145 8588345260) K (test code = 5.3 mmol/L 3.5-5 H 0269309617) CL (test code = 100 mmol/L 98-108 0450530518) CO2 TOTAL (test code = 28 mmol/L 23-31 2454866874) AGAP (test code = 2-16 1012995221) BUN (test code = 27 mg/dL 7-23 H 3631158785) GLUCOSE (test code = 90 mg/dL 70-110 2423847030) CREATININE (test code = 1.25 mg/dL 0.6-1.25 4342377012) TOTAL BILI (test code = 0.2 mg/dL 0.1-1.2 8675198795) CALCIUM (test code = 9.9 mg/dL 8.6-10.6 7133431635) T PROTEIN (test code = 6.8 g/dL 6.3-8.2 9926438773) ALBUMIN (test code = 3.7 g/dL 3.5-5 0319481542) ALK PHOS (test code = 122 U/L 34-122 4220765108) ALTv (test code = 26 U/L 5-50 1742-6) AST(SGOT) (test code = 24 U/L 13-40 2161726774) eGFR Calculation mL/min/1.73m2 (Non-) (test code = 2522157302) eGFR Calculation mL/min/1.73m2 () (test code = 9205441307) GILBERTO (test code = GILBERTO) Association of [...] tests). Lab Interpretation Abnormal (test code = 11147-2) [facility]2020-09-27 03:33:00 Test Item Value Reference Range Interpretation Comments LIPASE (test code = 2023819083) 223 U/L 0-220 H Lab Interpretation (test code = Abnormal 31568-8) [facility]2020-09-27 03:33:00 Test Item Value Reference Range Interpretation Comments MAGNESIUM (test code = 3240865542) 1.7 mg/dL 1.7-2.4 Lab Interpretation (test code = Normal 19622-8) [facility] WITH [id number] 03:17:00 Test Item Value Reference Range Interpretation Comments WBC (test code = See_Comment [Automated 1568-2) message] The sy stem which generated this result transmitted reference range : 4.20 - 10.70 10*3/?L. The reference range was not used to interpret this result as normal/abnormal . RBC (test code = See_Comment L [Automated 181-8) message] The sy stem which generated this [...] RDW-SD (test code = 49.9 fL 38.5-51.6 63968-0) RDW-CV (test code = 17.2 % 12.1-15.4 H 788-0) PLT (test code = See_Comment H [Automated 777-3) message] The sy stem which generated this result transmitted reference range : 150 - 328 10*3/ ?L. The reference r meredith was not used to interpret this result as normal/abnormal . MPV (test code = 9.3 fL 9.8-13 L 71050-6) NRBC/100 WBC (test See_Comment [Automat ed code = 8738314366) message] The system which generated this result transmitted reference range : 0.0 - 10.0 /100 WBCs. The refer ence range was not u sed to interpret th is result as normal/abnormal . NRBC x10^3 (test code <0.01 See_Comment [Auto mated = 8837925785) message] The s ystem which generated this result transmitted reference range : 10*3/?L. The reference range was not used to interpret this result as normal/abnormal . GRAN MAT (NEUT) % 78.5 % (test code = 770-8) IMM GRAN % (test code 0.50 % = 4992686930) LYMPH % (test code = 11.6 % 736-9) MONO % (test code = 8.4 % 5905-5) EOS % (test code = 0.6 % 713-8) BASO % (test code = 0.4 % 706-2) GRAN MAT x10^3(ANC) 6.16 10*3/uL 1.99-6.95 (test code = 5874542112) IMM GRAN x10^3 (test 0.04 10*3/uL 0-0.06 code = 8258733039) LYMPH x10^3 (test code 0.91 10*3/uL 1.09-3.23 L = 731-0) MONO x10^3 (test code 0.66 10*3/uL 0.36-1.02 = 742-7) EOS x10^3 (test code = 0.05 10*3/uL 0.06-0.53 L 711-2) BASO x10^3 (test code 0.03 10*3/uL 0.01-0.09 = 704-7) Lab Interpretation Abnormal (test code = 76538-5) [facility] Area[facility] FLUID CULTURE(AEROBIC/ANAEROBIC) 2020-05-10 15:19:00 Test Item Value Reference Range Interpretation Comments BODY FLUID CULT 2+ Clostridioides (test code = (Clostridium) difficile 611-4) Gram stain (test Few PMNs or Mononuclear code = 664-3) cells observed [facility] (NA, K, CL, CO2, GLUCOSE, BUN, CREATININE, CA)2020-05-10 10:27:00 Test Item Value Reference Range Interpretation Comments NA (test code = 132 mmol/L 135-145 L 3872544675) K (test code = 4.0 mmol/L 3.5-5 3008381229) CL (test code = 97 mmol/L 98-108 L 2889229195) CO2 TOTAL (test code = 28 mmol/L 23-31 0979181854) AGAP (test code = 2-16 8566297275) BUN (test code = 12 mg/dL 7-23 1164904511) GLUCOSE (test code = 128 mg/dL 70-110 H 9413525074) CREATININE (test code = 0.63 mg/dL 0.6-1.25 8835392168) CALCIUM (test code = 8.7 mg/dL 8.6-10.6 4113979891) eGFR Calculation mL/min/1.73m2 (Non-) (test code = 6000266306) eGFR Calculation mL/min/1.73m2 () (test code = 7512413396) GILBERTO (test code = GILBERTO) Association of [...] tests). Lab Interpretation Abnormal (test code = 78491-0) [facility] AreaMagnesium [id number] 10:27:00 Test Item Value Reference Range Interpretation Comments MAGNESIUM (test code = 8057881942) 1.7 mg/dL 1.7-2.4 Lab Interpretation (test code = Normal 19730-5) [facility] AreaPhosphorus [id number] 10:27:00 Test Item Value Reference Range Interpretation Comments PHOSPHORUS (test code = 1410216998) 3.4 mg/dL 2.5-5 Lab Interpretation (test code = Normal 34938-7) [facility] with [id number] 10:03:00 Test Item Value Reference Range Interpretation Comments WBC (test code = See_Comment [Automated 3490-2) message] The sy stem which generated this result transmitted reference range : 4.20 - 10.70 10*3/?L. The reference range was not used to interpret this result as normal/abnormal . RBC (test code = See_Comment L [Automated 509-8) message] The sy stem which generated this [...] RDW-SD (test code = 47.3 fL 38.5-51.6 80971-2) RDW-CV (test code = 15.7 % 12.1-15.4 H 788-0) PLT (test code = See_Comment H [Automated 777-3) message] The sy stem which generated this result transmitted reference range : 150 - 328 10*3/ ?L. The reference r meredith was not used to interpret this result as normal/abnormal . MPV (test code = 8.9 fL 9.8-13 L 76994-1) NRBC/100 WBC (test See_Comment [Automat ed code = 8124124329) message] The system which generated this result transmitted reference range : 0.0 - 10.0 /100 WBCs. The refer ence range was not u sed to interpret th is result as normal/abnormal . NRBC x10^3 (test code <0.01 See_Comment [Auto mated = 4515788815) message] The s ystem which generated this result transmitted reference range : 10*3/?L. The reference range was not used to interpret this result as normal/abnormal . GRAN MAT (NEUT) % 80.0 % (test code = 770-8) IMM GRAN % (test code 0.50 % = 7260760187) LYMPH % (test code = 11.8 % 736-9) MONO % (test code = 6.6 % 5905-5) EOS % (test code = 0.8 % 713-8) BASO % (test code = 0.3 % 706-2) GRAN MAT x10^3(ANC) 6.98 10*3/uL 1.99-6.95 H (test code = 1273323213) IMM GRAN x10^3 (test 0.04 10*3/uL 0-0.06 code = 6607129285) LYMPH x10^3 (test code 1.03 10*3/uL 1.09-3.23 L = 731-0) MONO x10^3 (test code 0.58 10*3/uL 0.36-1.02 = 742-7) EOS x10^3 (test code = 0.07 10*3/uL 0.06-0.53 711-2) BASO x10^3 (test code 0.03 10*3/uL 0.01-0.09 = 704-7) Lab Interpretation Abnormal (test code = 94454-8) [facility] Metabolic Panel (NA, K, CL, CO2, GLUCOSE, BUN, CREATININE, CA)2020-05-09 11:07:00 Test Item Value Reference Range Interpretation Comments NA (test code = 133 mmol/L 135-145 L 6835351692) K (test code = 4.4 mmol/L 3.5-5 0155464469) CL (test code = 100 mmol/L 98-108 1618570621) CO2 TOTAL (test code = 25 mmol/L 23-31 6251153550) AGAP (test code = 2-16 1942003988) BUN (test code = 14 mg/dL 7-23 4639453567) GLUCOSE (test code = 93 mg/dL 70-110 0474642237) CREATININE (test code = 0.66 mg/dL 0.6-1.25 6583684789) CALCIUM (test code = 8.3 mg/dL 8.6-10.6 L 0376161154) eGFR Calculation mL/min/1.73m2 (Non-) (test code = 6416683651) eGFR Calculation mL/min/1.73m2 () (test code = 6676642008) GILBERTO (test code = GILBERTO) Association of [...] tests). Lab Interpretation Abnormal (test code = 25367-2) [facility] Area[facility] [id number] 11:07:00 Test Item Value Reference Range Interpretation Comments MAGNESIUM (test code = 3812203896) 1.8 mg/dL 1.7-2.4 Lab Interpretation (test code = Normal 00524-7) [facility] AreaPh[facility]orus [id number] 11:07:00 Test Item Value Reference Range Interpretation Comments PHOSPHORUS (test code = 7338295518) 3.2 mg/dL 2.5-5 Lab Interpretation (test code = Normal 66490-6) [facility] with Dzegeliipvmp2297-89-25 10:42:00 Test Item Value Reference Range Interpretation [...] RDW-SD (test code = 45.9 fL 38.5-51.6 31637-5) RDW-CV (test code = 15.4 % 12.1-15.4 788-0) PLT (test code = See_Comment H [Automated 777-3) message] The sy stem which generated this result transmitted reference range : 150 - 328 10*3/ ?L. The reference r meredith was not used to interpret this result as normal/abnormal . MPV (test code = 8.9 fL 9.8-13 L 61257-2) NRBC/100 WBC (test See_Comment [Automat ed code = 1941100154) message] The system which generated this result transmitted reference range : 0.0 - 10.0 /100 WBCs. The refer ence range was not u sed to interpret th is result as normal/abnormal . NRBC x10^3 (test code <0.01 See_Comment [Auto mated = 3907125806) message] The s ystem which generated this result transmitted reference range : 10*3/?L. The reference range was not used to interpret this result as normal/abnormal . GRAN MAT (NEUT) % 77.7 % (test code = 770-8) IMM GRAN % (test code 0.50 % = 8103921251) LYMPH % (test code = 11.8 % 736-9) MONO % (test code = 8.4 % 5905-5) EOS % (test code = 1.4 % 713-8) BASO % (test code = 0.2 % 706-2) GRAN MAT x10^3(ANC) 6.48 10*3/uL 1.99-6.95 (test code = [id number]) IMM GRAN x10^3 (test 0.04 10*3/uL 0-0.06 code = [id number]) LYMPH x10^3 (test code 0.98 10*3/uL 1.09-3.23 L = 731-0) MONO x10^3 (test code 0.70 10*3/uL 0.36-1.02 = 742-7) EOS x10^3 (test code = 0.12 10*3/uL 0.06-0.53 711-2) BASO x10^3 (test code <0.03 0.01-0.09 = 704-7) Lab Interpretation Abnormal (test code = 52409-2) [facility] Metabolic Panel (NA, K, CL, CO2, GLUCOSE, BUN, CREATININE, CA)2020-05-08 12:18:00 Test Item Value Reference Range Interpretation Comments NA (test code = 136 mmol/L 135-145 2784485758) K (test code = 4.1 mmol/L 3.5-5 2215179164) CL (test code = 102 mmol/L 98-108 7069712398) CO2 TOTAL (test code = 26 mmol/L 23-31 7828622697) AGAP (test code = 2-16 3247466152) BUN (test code = 18 mg/dL 7-23 3364455039) GLUCOSE (test code = 99 mg/dL 70-110 5299652769) CREATININE (test code = 0.63 mg/dL 0.6-1.25 6868268371) CALCIUM (test code = 8.4 mg/dL 8.6-10.6 L 9268227574) eGFR Calculation mL/min/1.73m2 (Non-) (test code = 9886079014) eGFR Calculation mL/min/1.73m2 () (test code = 0068674238) GILBERTO (test code = GILBERTO) Association of [...] tests). Lab Interpretation Abnormal (test code = 54058-3) [facility] [id number] 12:18:00 Test Item Value Reference Range Interpretation Comments MAGNESIUM (test code = 6036338546) 1.8 mg/dL 1.7-2.4 Lab Interpretation (test code = Normal 66933-7) [facility] [id number] 12:18:00 Test Item Value Reference Range Interpretation Comments PHOSPHORUS (test code = 9578765273) 3.2 mg/dL 2.5-5 Lab Interpretation (test code = Normal 47940-0) [facility] with Lymtkinvonbk0053-00-58 11:50:00 Test Item Value Reference Range Interpretation Comments WBC (test code = See_Comment [Automated 4353-2) message] The sy stem which generated this result transmitted reference range : 4.20 - 10.70 10*3/?L. The reference range was not used to interpret this result as normal/abnormal . RBC (test code = See_Comment L [Automated 517-9) message] The sy stem which generated this [...] RDW-SD (test code = 46.9 fL 38.5-51.6 55567-2) RDW-CV (test code = 15.2 % 12.1-15.4 788-0) PLT (test code = See_Comment H [Automated 777-3) message] The sy stem which generated this result transmitted reference range : 150 - 328 10*3/ ?L. The reference r meredith was not used to interpret this result as normal/abnormal . MPV (test code = 9.0 fL 9.8-13 L 00116-5) NRBC/100 WBC (test See_Comment [Automat ed code = 1998267760) message] The system which generated this result transmitted reference range : 0.0 - 10.0 /100 WBCs. The refer ence range was not u sed to interpret th is result as normal/abnormal . NRBC x10^3 (test code <0.01 See_Comment [Auto mated = 3354193857) message] The s ystem which generated this result transmitted reference range : 10*3/?L. The reference range was not used to interpret this result as normal/abnormal . GRAN MAT (NEUT) % 76.3 % (test code = 770-8) IMM GRAN % (test code 0.70 % = 9258133347) LYMPH % (test code = 13.3 % 736-9) MONO % (test code = 8.4 % 5905-5) EOS % (test code = 1.1 % 713-8) BASO % (test code = 0.2 % 706-2) GRAN MAT x10^3(ANC) 6.93 10*3/uL 1.99-6.95 (test code = 7719887474) IMM GRAN x10^3 (test 0.06 10*3/uL 0-0.06 code = 4949022249) LYMPH x10^3 (test code 1.21 10*3/uL 1.09-3.23 = 731-0) MONO x10^3 (test code 0.76 10*3/uL 0.36-1.02 = 742-7) EOS x10^3 (test code = 0.10 10*3/uL 0.06-0.53 711-2) BASO x10^3 (test code <0.03 0.01-0.09 = 704-7) Lab Interpretation Abnormal (test code = 19859-2) [facility] BY CATHETER PERITONEAL OR [id number] 13:09:04 Technically successful drainage catheter placement in the right upperquadrant, left upper quadrant,and right lower quadrant collections. Preliminary Report Dictated by Resident: Rach Gaston MD., have reviewed this study and agree [...] of the tract was performed. A 14 Niuean locking pigtail michael inagecatheter was placed in the collection and samples were sent for laboratoryanalysis. The left upper quadrant collection was identified under ultrasound and CTguidance. A 17-gauge coaxial needle wasadvanced into the collection. AnAmplatz wire was advanced into the collection over the needle and serialdilatation of the tract was performed. A 12 Niuean locking pigtail drainagecatheter was placed within the collection and samples were sent forlaboratory analysis. The right lower quadrant collectionwas identified under ultrasound and CTguidance. A 17-gauge coaxial needle was advanced into the colle ction.Serial dilatation was performed over the Amplatz wire. A 14 Niuean lockingpigtail drainage catheter was placed within the collection. Proper positioning was confirmed with postprocedural CT imaging of theabdomen and pelvis. The catheters were sutured to the skin. ESTIMATED BLOOD LOSS: <3cc. CONDITION: Stable. FINDINGS: Initial CT images demonstrate multiple abscesses in the left upper, rightupper, and right lower quadrants. [facility], Radiant Results Inft User - 05/07/2020 8:10 [...] was obtained. Prior to beginning the procedure, Parker Protocolwas performed to confirm the patient's identity [...] of the tract was performed. A 14 Niuean lockingpigtail drainagecatheter was placed in the collection and samples were sent for laboratoryanalysis.The left upper quadrant collection was identified under ultrasound and CTguidance. A 17-gauge coaxial needle was advanced into the collection. AnAmplatz wire was advanced into the collection over the needle and serialdilatation of the tract was performed. A 12 Niuean locking pigtail drainagecatheter wasplaced within the collection and samples were sent forlaboratory analysis.The right lower quadrant collection was identified under ultrasound and CTguidance. A 17-gauge coaxial needle was advanced intothe collection.Serial dilatation was performed over the Amplatz wire. A 14 Niuean lockingpigtail drainage catheter was placed within the [...] during the entire procedure and/orduring the botello components.[facility] (NA, K, CL, CO2, GLUCOSE, BUN, CREATININE, CA) 2020-05-07 11:49:00 Test Item Value Reference Range Interpretation Comments NA (test code = 132 mmol/L 135-145 L 4622930480) K (test code = 4.0 mmol/L 3.5-5 8315305625) CL (test code = 101 mmol/L 98-108 9892630215) CO2 TOTAL (test code = 23 mmol/L 23-31 9369136029) AGAP (test code = 2-16 1721355797) BUN (test code = 21 mg/dL 7-23 8750381885) GLUCOSE (test code = 98 mg/dL 70-110 2035004246) CREATININE (test code = 0.65 mg/dL 0.6-1.25 0861966346) CALCIUM (test code = 8.4 mg/dL 8.6-10.6 L 3443164273) eGFR Calculation mL/min/1.73m2 (Non-) (test code = 3758268921) eGFR Calculation mL/min/1.73m2 () (test code = 8306517815) GILBERTO (test code = GILBERTO) Association of [...] tests). Lab Interpretation Abnormal (test code = 99299-9) [facility] Uztbt2284-80-10 11:49:00 Test Item Value Reference Range Interpretation Comments MAGNESIUM (test code = 2551788491) 1.5 mg/dL 1.7-2.4 L Lab Interpretation (test code = Abnormal 43022-3) [facility] [id number] 11:49:00 Test Item Value Reference Range Interpretation Comments PHOSPHORUS (test code = 1369043322) 2.7 mg/dL 2.5-5 Lab Interpretation (test code = Normal 38781-4) [facility] with Sqjoqqxoypii3626-79-21 11:31:00 Test Item Value Reference Range Interpretation [...] RDW-SD (test code = 47.2 fL 38.5-51.6 36622-7) RDW-CV (test code = 15.3 % 12.1-15.4 788-0) PLT (test code = See_Comment H [Automated 777-3) message] The sy stem which generated this result transmitted reference range : 150 - 328 10*3/ ?L. The reference r meredith was not used to interpret this result as normal/abnormal . MPV (test code = 9.4 fL 9.8-13 L 54395-4) NRBC/100 WBC (test See_Comment [Automat ed code = 1946948245) message] The system which generated this result transmitted reference range : 0.0 - 10.0 /100 WBCs. The refer ence range was not u sed to interpret th is result as normal/abnormal . NRBC x10^3 (test code <0.01 See_Comment [Auto mated = 4283552882) message] The s ystem which generated this result transmitted reference range : 10*3/?L. The reference range was not used to interpret this result as normal/abnormal . GRAN MAT (NEUT) % 81.1 % (test code = 770-8) IMM GRAN % (test code 0.80 % = 3811287082) LYMPH % (test code = 9.5 % 736-9) MONO % (test code = 7.8 % 5905-5) EOS % (test code = 0.6 % 713-8) BASO % (test code = 0.2 % 706-2) GRAN MAT x10^3(ANC) 8.26 10*3/uL 1.99-6.95 H (test code = 8934607293) IMM GRAN x10^3 (test 0.08 10*3/uL 0-0.06 H code = 5065125731) LYMPH x10^3 (test code 0.97 10*3/uL 1.09-3.23 L = 731-0) MONO x10^3 (test code 0.79 10*3/uL 0.36-1.02 = 742-7) EOS x10^3 (test code = 0.06 10*3/uL 0.06-0.53 711-2) BASO x10^3 (test code <0.03 0.01-0.09 = 704-7) Lab Interpretation Abnormal (test code = 75732-0) [facility] Metabolic Panel (NA, K, CL, CO2, GLUCOSE, BUN, CREATININE, CA)2020-05-06 15:02:00 Test Item Value Reference Range Interpretation Comments NA (test code = 134 mmol/L 135-145 L 3661652593) K (test code = 4.3 mmol/L 3.5-5 8770773942) CL (test code = 105 mmol/L 98-108 5081103334) CO2 TOTAL (test code = 23 mmol/L 23-31 1872194253) AGAP (test code = 2-16 1626679730) BUN (test code = 18 mg/dL 7-23 9017846603) GLUCOSE (test code = 96 mg/dL 70-110 3327465089) CREATININE (test code = 0.67 mg/dL 0.6-1.25 7299290241) CALCIUM (test code = 8.5 mg/dL 8.6-10.6 L 3248217611) eGFR Calculation mL/min/1.73m2 (Non-) (test code = 5411879737) eGFR Calculation mL/min/1.73m2 () (test code = 9776125788) GILBERTO (test code = GILBERTO) Association of [...] tests). Lab Interpretation Abnormal (test code = 24653-4) [facility] Hhipj0697-83-31 15:02:00 Test Item Value Reference Range Interpretation Comments MAGNESIUM (test code = 4658669480) 1.8 mg/dL 1.7-2.4 Lab Interpretation (test code = Normal 82237-4) [facility] Mfcvy9785-65-19 15:02:00 Test Item Value Reference Range Interpretation Comments PHOSPHORUS (test code = 4788361737) 3.2 mg/dL 2.5-5 Lab Interpretation (test code = Normal 45688-1) [facility] with Glsmniztlxeb3577-35-92 10:41:00 Test Item Value Reference Range Interpretation [...] RDW-SD (test code = 47.0 fL 38.5-51.6 42380-2) RDW-CV (test code = 15.2 % 12.1-15.4 788-0) PLT (test code = See_Comment H [Automated 777-3) message] The sy stem which generated this result transmitted reference range : 150 - 328 10*3/ ?L. The reference r meredith was not used to interpret this result as normal/abnormal . MPV (test code = 9.1 fL 9.8-13 L 28257-9) NRBC/100 WBC (test See_Comment [Automat ed code = 2326754705) message] The system which generated this result transmitted reference range : 0.0 - 10.0 /100 WBCs. The refer ence range was not u sed to interpret th is result as normal/abnormal . NRBC x10^3 (test code <0.01 See_Comment [Auto mated = 3300930516) message] The s ystem which generated this result transmitted reference range : 10*3/?L. The reference range was not used to interpret this result as normal/abnormal . GRAN MAT (NEUT) % 77.3 % (test code = 770-8) IMM GRAN % (test code 0.60 % = 1108915690) LYMPH % (test code = 11.6 % 736-9) MONO % (test code = 9.5 % 5905-5) EOS % (test code = 0.8 % 713-8) BASO % (test code = 0.2 % 706-2) GRAN MAT x10^3(ANC) 6.69 10*3/uL 1.99-6.95 (test code = 3581688361) IMM GRAN x10^3 (test 0.05 10*3/uL 0-0.06 code = 2607320709) LYMPH x10^3 (test code 1.00 10*3/uL 1.09-3.23 L = 731-0) MONO x10^3 (test code 0.82 10*3/uL 0.36-1.02 = 742-7) EOS x10^3 (test code = 0.07 10*3/uL 0.06-0.53 711-2) BASO x10^3 (test code <0.03 0.01-0.09 = 704-7) Lab Interpretation Abnormal (test code = 93601-1) [facility] Packed RBC (in units), 1 Units 2020-05-05 15:59:33 Test Item Value Reference Range Interpretation Comments Cross Match Result Compatible (test code = 4409) ISBT Blood Type Code (test code = 689217) Unit Blood Type (test O Pos code = 4410) Unit Number (test [id number] code = 4411) Blood Expiration Date & Time (test code = 178803) Status Information Issued (test code = 4412) Product Red Blood Cells Identification (test code = 4413) Product Code (test U0830N57 Performed at [facility] code = 4414) Laboratory Services - [facility] Blood Fsot155 [facility] [address]Yhhf Free: [phone] A No. [id number] [facility] AreaType and Screen - ONCE Idhfmst6437-74-66 11:34:29 Test Item Value Reference Range Interpretation Comments ABO & RH (test code O POSITIVE Performe d at [facility] = 20) Laboratory Serv ices - [facility] Blood Bank3 [address] [facility] [address]Idiu Free: [phone] A No. [id number] IAT (test code = Negative Performed a t [facility] 1185) Laboratory Serv [facility] Blood [address] [facility] [address]Wjnu Free: [phone] A No. [id number] [facility] AreaPREALBUMIN2020-09-12 10:19:00 Test Item Value Reference Range Interpretation Comments PALB (test code = 05445-8) 8.0 mg/dL 18-45 L Lab Interpretation (test code = Abnormal 26974-2) [facility] (NA, K, CL, CO2, GLUCOSE, BUN, CREATININE, CA)2020-05-05 10:12:00 Test Item Value Reference Range Interpretation Comments NA (test code = 135 mmol/L 135-145 1930795827) K (test code = 4.1 mmol/L 3.5-5 4946176925) CL (test code = 106 mmol/L 98-108 1800299756) CO2 TOTAL (test code = 22 mmol/L 23-31 L 0879467921) AGAP (test code = 2-16 5783347303) BUN (test code = 25 mg/dL 7-23 H 6378516517) GLUCOSE (test code = 91 mg/dL 70-110 2829769847) CREATININE (test code = 0.68 mg/dL 0.6-1.25 2826337205) CALCIUM (test code = 7.4 mg/dL 8.6-10.6 L 6821869829) eGFR Calculation mL/min/1.73m2 (Non-) (test code = 7533395650) eGFR Calculation mL/min/1.73m2 () (test code = 0998836789) GILBERTO (test code = GILBERTO) Association of [...] tests). Lab Interpretation Abnormal (test code = 95133-7) [facility] Nhjpn3135-28-03 10:12:00 Test Item Value Reference Range Interpretation Comments MAGNESIUM (test code = 2938216822) 1.8 mg/dL 1.7-2.4 Lab Interpretation (test code = Normal 43018-3) [facility] [id number] 10:12:00 Test Item Value Reference Range Interpretation Comments PHOSPHORUS (test code = 5278991207) 3.1 mg/dL 2.5-5 Lab Interpretation (test code = Normal 03021-4) [facility] with Hsdjfibxmhkj4142-88-84 09:18:00 Test Item Value Reference Range Interpretation Comments WBC (test code = See_Comment [Automated 8939-2) message] The sy stem which generated this result transmitted reference range : 4.20 - 10.70 10*3/?L. The reference range was not used to interpret this result as normal/abnormal . RBC (test code = See_Comment L [Automated 162-4) message] The sy stem which generated this [...] RDW-SD (test code = 48.4 fL 38.5-51.6 72716-5) RDW-CV (test code = 15.7 % 12.1-15.4 H 788-0) PLT (test code = See_Comment H [Automated 777-3) message] The sy stem which generated this result transmitted reference range : 150 - 328 10*3/ ?L. The reference r meredith was not used to interpret this result as normal/abnormal . MPV (test code = 9.1 fL 9.8-13 L 44238-4) NRBC/100 WBC (test See_Comment [Automat ed code = 7453183174) message] The system which generated this result transmitted reference range : 0.0 - 10.0 /100 WBCs. The refer ence range was not u sed to interpret th is result as normal/abnormal . NRBC x10^3 (test code <0.01 See_Comment [Auto mated = 3985609548) message] The s ystem which generated this result transmitted reference range : 10*3/?L. The reference range was not used to interpret this result as normal/abnormal . GRAN MAT (NEUT) % 79.0 % (test code = 770-8) IMM GRAN % (test code 0.70 % = 5683750639) LYMPH % (test code = 10.6 % 736-9) MONO % (test code = 8.9 % 5905-5) EOS % (test code = 0.5 % 713-8) BASO % (test code = 0.3 % 706-2) GRAN MAT x10^3(ANC) 7.81 10*3/uL 1.99-6.95 H (test code = 2485879991) IMM GRAN x10^3 (test 0.07 10*3/uL 0-0.06 H code = 0447401959) LYMPH x10^3 (test code 1.05 10*3/uL 1.09-3.23 L = 731-0) MONO x10^3 (test code 0.88 10*3/uL 0.36-1.02 = 742-7) EOS x10^3 (test code = 0.05 10*3/uL 0.06-0.53 L 711-2) BASO x10^3 (test code 0.03 10*3/uL 0.01-0.09 = 704-7) Lab Interpretation Abnormal (test code = 01013-4) [facility]INAL[facility]IS2020-09-12 06:03:00 Test Item Value Reference Range Interpretation Comments APPEARANCE (test code = Hazy Clear A 7218620216) COLOR (test code = Yellow Yellow 8294955599) PH (test code = 4.8-8.0 4268018594) SP GRAVITY (test code = 1.003-1.030 H 1333563679) GLU U QUAL (test code = Normal Normal 6558907890) BLOOD (test code = Negative Negative 2905394705) KETONES (test code = Negative Negative 8626406635) PROTEIN (test code = Negative Negative 2887-8) UROBILIN (test code = Normal Normal 2366626498) BILIRUBIN (test code = Negative Negative 3654294797) NITRITE (test code = Negative Negative 8867798199) LEUK ROGER (test code = Negative Negative 9085728383) RBC/HPF (test code = See_Comment H [Autom ated message] 4671538738) The system [email or web address] generated this result transmitted ref erence range: 0 - 3 HP F. The reference range was not used to int erpret this result as normal/abnormal . WBC/HPF (test code = See_Comment [Autom ated message] 8366289634) The system [email or web address] generated this result transmitted ref erence range: 0 - 5 HP F. The reference range was not used to int erpret this result as normal/abnormal . BACTERIA (test code = Few Negative A 0142153373) MUCOUS (test code = Slight Negative LPF A 1439759423) CA OXALATE (test code = See_Comment H [Au tomated message] 4685496169) The system [email or web address] generated this result transmitted ref erence range: <=1 HPF. The reference range was not used to int erpret this result as normal/abnormal . Lab Interpretation (test Abnormal code = 55282-1) [facility] Area[facility] ABDOMEN PELVIS W [id number] 04:56:59 1. ?Interval removal of left subdiaphragmatic, [...] agree with the abovereport.[facility] Area[facility]OVID[facility] (ID NOW RAPID TESTING)2020-05-05 03:40:00 Test Item Value Reference Range Interpretation Comments SARS-CoV-2 Rapid ID NOW Not Detected Not Detected (test code = 43169-1) GILBERTO (test code = GILBERTO) ID NOW COVID-19 Assay is an isothermal nucleic acid amplification test intended for the qualitative detection of nucleic acid from SARS-CoV-2 viral RNA in nasopharyngeal (COATER SMOKING PIPE) specimens. It is used under Emergency Use [...] indicated. Lab Interpretation Normal (test code = 14841-5) [facility]. METABOLIC PANEL (83131)2020-05-05 03:02:00 Test Item Value Reference Range Interpretation Comments NA (test code = 134 mmol/L 135-145 L 3631819317) K (test code = 4.7 mmol/L 3.5-5 1228821763) CL (test code = 99 mmol/L 98-108 7813324245) CO2 TOTAL (test code = 24 mmol/L 23-31 5921398284) AGAP (test code = 2-16 6825611795) BUN (test code = 37 mg/dL 7-23 H 1246325290) GLUCOSE (test code = 105 mg/dL 70-110 1128331974) CREATININE (test code = 0.94 mg/dL 0.6-1.25 7544780014) TOTAL BILI (test code = 0.5 mg/dL 0.1-1.3 4580052738) CALCIUM (test code = 8.8 mg/dL 8.6-10.6 7480422084) T PROTEIN (test code = 6.2 g/dL 6.3-8.2 L 0655015615) ALBUMIN (test code = 3.0 g/dL 3.5-5 L 4607432045) ALK PHOS (test code = 150 U/L 34-122 H 7412761040) ALTv (test code = 28 U/L 5-50 1742-6) AST(SGOT) (test code = 23 U/L 13-40 0205383588) eGFR Calculation mL/min/1.73m2 (Non-) (test code = 1513072232) eGFR Calculation mL/min/1.73m2 () (test code = 7765558749) GILBERTO (test code = GILBERTO) Association of [...] tests). Lab Interpretation Abnormal (test code = 78022-2) [facility] AreaLIPASE2020-09-12 03:02:00 Test Item Value Reference Range Interpretation Comments LIPASE (test code = 0079260694) 323 U/L 0-220 H Lab Interpretation (test code = Abnormal 44271-6) [facility] WITH [id number] 02:43:00 Test Item Value Reference Range Interpretation Comments WBC (test code = See_Comment H [Automated 7990-2) message] The system which generated this result transmit dain reference range : 4.20 - 10.70 10*3/?L. The reference range was not used to interpret this result as normal/abnormal . RBC (test code = See_Comment L [Automated 249-8) message] The system which generated this result [...] RDW-SD (test code = 45.7 fL 38.5-51.6 33855-5) RDW-CV (test code = 15.4 % 12.1-15.4 788-0) PLT (test code = See_Comment H [Automated 777-3) message] The system which generated this result transmit dain reference range : 150 - 328 10*3/ ?L. The reference range was not u sed to interpret th is result as normal/abnormal . MPV (test code = 8.9 fL 9.8-13 L 80567-7) NRBC/100 WBC (test See_Comment [Automat ed code = 0057892349) message] The system which generated this result transmit dain reference range : 0.0 - 10.0 /100 WBCs. The reference range was not used to interpret this result as normal/abnormal . NRBC x10^3 (test code <0.01 See_Comment [Auto mated = 9240846693) message] The system which generated this result transmit dain reference range : 10*3/?L. The reference range was not used to interpret this result as normal/abnormal . GRAN MAT (NEUT) % 82.6 % (test code = 770-8) IMM GRAN % (test code 0.60 % = 6836289610) LYMPH % (test code = 8.1 % 736-9) MONO % (test code = 8.1 % 5905-5) EOS % (test code = 0.4 % 713-8) BASO % (test code = 0.2 % 706-2) GRAN MAT x10^3(ANC) 11.18 10*3/uL 1.99-6.95 H (test code = 5188731087) IMM GRAN x10^3 (test 0.08 10*3/uL 0-0.06 H code = 3665321551) LYMPH x10^3 (test code 1.10 10*3/uL 1.09-3.23 = 731-0) MONO x10^3 (test code 1.09 10*3/uL 0.36-1.02 H = 742-7) EOS x10^3 (test code = 0.05 10*3/uL 0.06-0.53 L 711-2) BASO x10^3 (test code 0.03 10*3/uL 0.01-0.09 = 704-7) Lab Interpretation Abnormal (test code = 00209-5) [facility] METABOLIC PANEL (NA, K, CL, CO2, GLUCOSE, BUN, CREATININE, CA)2020-05-01 12:25:00 Test Item Value Reference Range Interpretation Comments NA (test code = 131 mmol/L 135-145 L 5207615780) K (test code = 4.7 mmol/L 3.5-5 0429269495) CL (test code = 97 mmol/L 98-108 L 0991194322) CO2 TOTAL (test code = 25 mmol/L 23-31 1610730316) AGAP (test code = 2-16 8159640700) BUN (test code = 30 mg/dL 7-23 H 2826818712) GLUCOSE (test code = 111 mg/dL 70-110 H 6428079011) CREATININE (test code = 0.69 mg/dL 0.6-1.25 0049159821) CALCIUM (test code = 9.3 mg/dL 8.6-10.6 3836362828) eGFR Calculation mL/min/1.73m2 (Non-) (test code = 6664124501) eGFR Calculation mL/min/1.73m2 () (test code = 1510859955) GILBERTO (test code = GILBERTO) Association of [...] tests). Lab Interpretation Abnormal (test code = 07324-6) [facility]2020-[facility]-08 12:07:00 Test Item Value Reference Range Interpretation Comments MAGNESIUM (test code = 1647701943) 2.3 mg/dL 1.7-2.4 Lab Interpretation (test code = Normal 02740-0) [facility]OSPHORUS2020-09-08 12:07:00 Test Item Value Reference Range Interpretation Comments PHOSPHORUS (test code = 1266586057) 4.6 mg/dL 2.5-5 Lab Interpretation (test code = Normal 15845-9) [facility] WITH [id number] 11:44:00 Test Item Value Reference Range Interpretation Comments WBC (test code = See_Comment H [Automated 5690-2) message] The system which generated this result [...] RDW-SD (test code = 44.9 fL 38.5-51.6 81409-8) RDW-CV (test code = 14.8 % 12.1-15.4 788-0) PLT (test code = See_Comment H [Automated 777-3) message] The system which generated this result transmit dain reference range : 150 - 328 10*3/ ?L. The reference range was not u sed to interpret th is result as normal/abnormal . MPV (test code = 9.1 fL 9.8-13 L 32167-0) NRBC/100 WBC (test See_Comment [Automat ed code = 0505775315) message] The system which generated this result transmit dain reference range : 0.0 - 10.0 /100 WBCs. The reference range was not used to interpret this result as normal/abnormal . NRBC x10^3 (test code <0.01 See_Comment [Auto mated = 0422105674) message] The system which generated this result transmit dain reference range : 10*3/?L. The reference range was not used to interpret this result as normal/abnormal . GRAN MAT (NEUT) % 81.4 % (test code = 770-8) IMM GRAN % (test code 0.70 % = 2761006503) LYMPH % (test code = 8.7 % 736-9) MONO % (test code = 8.5 % 5905-5) EOS % (test code = 0.3 % 713-8) BASO % (test code = 0.4 % 706-2) GRAN MAT x10^3(ANC) 12.01 10*3/uL 1.99-6.95 H (test code = 3833712329) IMM GRAN x10^3 (test 0.10 10*3/uL 0-0.06 H code = 8399972606) LYMPH x10^3 (test code 1.28 10*3/uL 1.09-3.23 = 731-0) MONO x10^3 (test code 1.25 10*3/uL 0.36-1.02 H = 742-7) EOS x10^3 (test code = 0.04 10*3/uL 0.06-0.53 L 711-2) BASO x10^3 (test code 0.06 10*3/uL 0.01-0.09 = 704-7) Lab Interpretation Abnormal (test code = 25032-4) [facility] METABOLIC PANEL (NA, K, CL, CO2, GLUCOSE, BUN, CREATININE, CA)2020-04-29 12:08:00 Test Item Value Reference Range Interpretation Comments NA (test code = 130 mmol/L 135-145 L 5783586973) K (test code = 5.0 mmol/L 3.5-5 3660550754) CL (test code = 94 mmol/L 98-108 L 3286418669) CO2 TOTAL (test code = 27 mmol/L 23-31 0699513501) AGAP (test code = 2-16 4205384218) BUN (test code = 35 mg/dL 7-23 H 9340683486) GLUCOSE (test code = 116 mg/dL 70-110 H 6024166963) CREATININE (test code = 0.76 mg/dL 0.6-1.25 9396696956) CALCIUM (test code = 9.0 mg/dL 8.6-10.6 9769395974) eGFR Calculation mL/min/1.73m2 (Non-) (test code = 3625765542) eGFR Calculation mL/min/1.73m2 () (test code = 6962953466) GILBERTO (test code = GILBERTO) Association of [...] tests). Lab Interpretation Abnormal (test code = 34939-9) [facility]00 Test Item Value Reference Range Interpretation Comments MAGNESIUM (test code = 5594520016) 2.3 mg/dL 1.7-2.4 Lab Interpretation (test code = Normal 22109-0) [facility] 12:01:00 Test Item Value Reference Range Interpretation Comments PHOSPHORUS (test code = 1602858773) 4.5 mg/dL 2.5-5 Lab Interpretation (test code = Normal 91370-6) [facility] [id number] 11:52:00 Test Item Value Reference Range Interpretation [...] RDW-SD (test code = 44.4 fL 38.5-51.6 06557-2) RDW-CV (test code = 14.7 % 12.1-15.4 788-0) PLT (test code = See_Comment H [Automated 777-3) message] The system which generated this result transmit dain reference range : 150 - 328 10*3/ ?L. The reference range was not u sed to interpret th is result as normal/abnormal . MPV (test code = 9.1 fL 9.8-13 L 48496-0) NRBC/100 WBC (test See_Comment [Automat ed code = 3524914844) message] The system which generated this result transmit dain reference range : 0.0 - 10.0 /100 WBCs. The reference range was not used to interpret this result as normal/abnormal . NRBC x10^3 (test code <0.01 See_Comment [Auto mated = 1813725698) message] The system which generated this result transmit dain reference range : 10*3/?L. The reference range was not used to interpret this result as normal/abnormal . GRAN MAT (NEUT) % 82.5 % (test code = 770-8) IMM GRAN % (test code 1.30 % = 2503472769) LYMPH % (test code = 7.1 % 736-9) MONO % (test code = 8.5 % 5905-5) EOS % (test code = 0.3 % 713-8) BASO % (test code = 0.3 % 706-2) GRAN MAT x10^3(ANC) 14.27 10*3/uL 1.99-6.95 H (test code = 7172073017) IMM GRAN x10^3 (test 0.23 10*3/uL 0-0.06 H code = 9003477044) LYMPH x10^3 (test code 1.23 10*3/uL 1.09-3.23 = 731-0) MONO x10^3 (test code 1.47 10*3/uL 0.36-1.02 H = 742-7) EOS x10^3 (test code = 0.05 10*3/uL 0.06-0.53 L 711-2) BASO x10^3 (test code 0.06 10*3/uL 0.01-0.09 = 704-7) Lab Interpretation Abnormal (test code = 20303-7) [facility] METABOLIC PANEL (NA, K, CL, CO2, GLUCOSE, BUN, CREATININE, CA)2020-04-28 10:15:00 Test Item Value Reference Range Interpretation Comments NA (test code = 130 mmol/L 135-145 L 4568421200) K (test code = 5.3 mmol/L 3.5-5 H 3754535661) CL (test code = 91 mmol/L 98-108 L 7706206869) CO2 TOTAL (test code = 29 mmol/L 23-31 9603777556) AGAP (test code = 2-16 0036161348) BUN (test code = 32 mg/dL 7-23 H 2325330784) GLUCOSE (test code = 101 mg/dL 70-110 4744741431) CREATININE (test code = 0.74 mg/dL 0.6-1.25 3088179824) CALCIUM (test code = 9.5 mg/dL 8.6-10.6 9408077057) eGFR Calculation mL/min/1.73m2 (Non-) (test code = 6063674204) eGFR Calculation mL/min/1.73m2 () (test code = 0568528449) GILBERTO (test code = GILBERTO) Association of [...] tests). Lab Interpretation Abnormal (test code = 67495-5) [facility] 10:12:00 Test Item Value Reference Range Interpretation Comments MAGNESIUM (test code = 4592378359) 2.3 mg/dL 1.7-2.4 Lab Interpretation (test code = Normal 05689-7) [facility] WITH [id number] 09:55:00 Test Item Value Reference Range Interpretation [...] RDW-SD (test code = 45.1 fL 38.5-51.6 31922-7) RDW-CV (test code = 14.7 % 12.1-15.4 788-0) PLT (test code = See_Comment H [Automated 777-3) message] The system which generated this result transmit dain reference range : 150 - 328 10*3/ ?L. The reference range was not u sed to interpret th is result as normal/abnormal . MPV (test code = 9.5 fL 9.8-13 L 91514-4) NRBC/100 WBC (test See_Comment [Automat ed code = 9957614225) message] The system which generated this result transmit dain reference range : 0.0 - 10.0 /100 WBCs. The reference range was not used to interpret this result as normal/abnormal . NRBC x10^3 (test code <0.01 See_Comment [Auto mated = 2973275199) message] The system which generated this result transmit dain reference range : 10*3/?L. The reference range was not used to interpret this result as normal/abnormal . GRAN MAT (NEUT) % 81.1 % (test code = 770-8) IMM GRAN % (test code 1.40 % = 9085179792) LYMPH % (test code = 8.6 % 736-9) MONO % (test code = 7.9 % 5905-5) EOS % (test code = 0.5 % 713-8) BASO % (test code = 0.5 % 706-2) GRAN MAT x10^3(ANC) 14.68 10*3/uL 1.99-6.95 H (test code = 1455386648) IMM GRAN x10^3 (test 0.25 10*3/uL 0-0.06 H code = 9149648333) LYMPH x10^3 (test code 1.55 10*3/uL 1.09-3.23 = 731-0) MONO x10^3 (test code 1.43 10*3/uL 0.36-1.02 H = 742-7) EOS x10^3 (test code = 0.09 10*3/uL 0.06-0.53 711-2) BASO x10^3 (test code 0.09 10*3/uL 0.01-0.09 = 704-7) Lab Interpretation Abnormal (test code = 62221-6) [facility] (NA, K, CL, CO2, GLUCOSE, BUN, CREATININE, CA)2020-04-27 10:20:00 Test Item Value Reference Range Interpretation Comments NA (test code = 130 mmol/L 135-145 L 2902885565) K (test code = 4.5 mmol/L 3.5-5 8376063291) CL (test code = 93 mmol/L 98-108 L 7361940859) CO2 TOTAL (test code = 28 mmol/L 23-31 2136121780) AGAP (test code = 2-16 0174168859) BUN (test code = 31 mg/dL 7-23 H 7639534437) GLUCOSE (test code = 102 mg/dL 70-110 1207985026) CREATININE (test code = 0.81 mg/dL 0.6-1.25 7323004581) CALCIUM (test code = 9.0 mg/dL 8.6-10.6 7494892809) eGFR Calculation mL/min/1.73m2 (Non-) (test code = 6715966281) eGFR Calculation mL/min/1.73m2 () (test code = 0370401382) GILBERTO (test code = GILBERTO) Association of [...] tests). Lab Interpretation Abnormal (test code = 59749-5) [facility] 10:20:00 Test Item Value Reference Range Interpretation Comments MAGNESIUM (test code = 1902518095) 2.2 mg/dL 1.7-2.4 Lab Interpretation (test code = Normal 23097-0) [facility] [id number] 09:49:00 Test Item Value Reference Range Interpretation [...] RDW-SD (test code = 45.2 fL 38.5-51.6 00418-1) RDW-CV (test code = 14.5 % 12.1-15.4 788-0) PLT (test code = See_Comment H [Automated 777-3) message] The system which generated this result transmit dain reference range : 150 - 328 10*3/ ?L. The reference range was not u sed to interpret th is result as normal/abnormal . MPV (test code = 9.0 fL 9.8-13 L 46512-3) NRBC/100 WBC (test See_Comment [Automat ed code = 3432011336) message] The system which generated this result transmit dain reference range : 0.0 - 10.0 /100 WBCs. The reference range was not used to interpret this result as normal/abnormal . NRBC x10^3 (test code <0.01 See_Comment [Auto mated = 2026254072) message] The system which generated this result transmit dain reference range : 10*3/?L. The reference range was not used to interpret this result as normal/abnormal . GRAN MAT (NEUT) % 80.9 % (test code = 770-8) IMM GRAN % (test code 1.30 % = 9140882178) LYMPH % (test code = 8.9 % 736-9) MONO % (test code = 7.7 % 5905-5) EOS % (test code = 0.6 % 713-8) BASO % (test code = 0.6 % 706-2) GRAN MAT x10^3(ANC) 13.18 10*3/uL 1.99-6.95 H (test code = 6881335135) IMM GRAN x10^3 (test 0.21 10*3/uL 0-0.06 H code = 4542892123) LYMPH x10^3 (test code 1.45 10*3/uL 1.09-3.23 = 731-0) MONO x10^3 (test code 1.26 10*3/uL 0.36-1.02 H = 742-7) EOS x10^3 (test code = 0.09 10*3/uL 0.06-0.53 711-2) BASO x10^3 (test code 0.10 10*3/uL 0.01-0.09 H = 704-7) Lab Interpretation Abnormal (test code = 72951-2) [facility] METABOLIC PANEL (NA, K, CL, CO2, GLUCOSE, BUN, CREATININE, CA)2020-04-26 11:29:00 Test Item Value Reference Range Interpretation Comments NA (test code = 133 mmol/L 135-145 L 9668459636) K (test code = 4.7 mmol/L 3.5-5 4841519197) CL (test code = 98 mmol/L 98-108 9698350594) CO2 TOTAL (test code = 25 mmol/L 23-31 0670600866) AGAP (test code = 2-16 6892631733) BUN (test code = 26 mg/dL 7-23 H 4427351970) GLUCOSE (test code = 97 mg/dL 70-110 9887708259) CREATININE (test code = 0.73 mg/dL 0.6-1.25 6815931753) CALCIUM (test code = 8.7 mg/dL 8.6-10.6 8809070094) eGFR Calculation mL/min/1.73m2 (Non-) (test code = 6223653661) eGFR Calculation mL/min/1.73m2 () (test code = 3994710279) GILBERTO (test code = GILBERTO) Association of [...] tests). Lab Interpretation Abnormal (test code = 33319-5) [facility] 11:29:00 Test Item Value Reference Range Interpretation Comments MAGNESIUM (test code = 9407506209) 2.1 mg/dL 1.7-2.4 Lab Interpretation (test code = Normal 45033-6) [facility] WITH [id number] 10:27:00 Test Item Value Reference Range Interpretation [...] RDW-SD (test code = 45.4 fL 38.5-51.6 48193-2) RDW-CV (test code = 14.5 % 12.1-15.4 788-0) PLT (test code = See_Comment H [Automated 777-3) message] The system which generated this result transmit dain reference range : 150 - 328 10*3/ ?L. The reference range was not u sed to interpret th is result as normal/abnormal . MPV (test code = 9.3 fL 9.8-13 L 82902-7) NRBC/100 WBC (test See_Comment [Automat ed code = 7362648632) message] The system which generated this result transmit dain reference range : 0.0 - 10.0 /100 WBCs. The reference range was not used to interpret this result as normal/abnormal . NRBC x10^3 (test code <0.01 See_Comment [Auto mated = 3900341127) message] The system which generated this result transmit dain reference range : 10*3/?L. The reference range was not used to interpret this result as normal/abnormal . GRAN MAT (NEUT) % 79.6 % (test code = 770-8) IMM GRAN % (test code 1.30 % = 1022191020) LYMPH % (test code = 8.6 % 736-9) MONO % (test code = 9.3 % 5905-5) EOS % (test code = 0.8 % 713-8) BASO % (test code = 0.4 % 706-2) GRAN MAT x10^3(ANC) 12.46 10*3/uL 1.99-6.95 H (test code = 2046053093) IMM GRAN x10^3 (test 0.21 10*3/uL 0-0.06 H code = 6186050227) LYMPH x10^3 (test code 1.34 10*3/uL 1.09-3.23 = 731-0) MONO x10^3 (test code 1.45 10*3/uL 0.36-1.02 H = 742-7) EOS x10^3 (test code = 0.13 10*3/uL 0.06-0.53 711-2) BASO x10^3 (test code 0.07 10*3/uL 0.01-0.09 = 704-7) Lab Interpretation Abnormal (test code = 63093-6) [facility] (NA, K, CL, CO2, GLUCOSE, BUN, CREATININE, CA)2020-04-25 10:03:00 Test Item Value Reference Range Interpretation Comments NA (test code = 133 mmol/L 135-145 L 4919125750) K (test code = 4.6 mmol/L 3.5-5 7863974755) CL (test code = 96 mmol/L 98-108 L 3453696367) CO2 TOTAL (test code = 27 mmol/L 23-31 9294598446) AGAP (test code = 2-16 6880115502) BUN (test code = 21 mg/dL 7-23 4607440210) GLUCOSE (test code = 108 mg/dL 70-110 3634946813) CREATININE (test code = 0.76 mg/dL 0.6-1.25 9286366710) CALCIUM (test code = 9.5 mg/dL 8.6-10.6 3711887665) eGFR Calculation mL/min/1.73m2 (Non-) (test code = 0567461093) eGFR Calculation mL/min/1.73m2 () (test code = 1865084808) GILBERTO (test code = GILBERTO) Association of [...] tests). Lab Interpretation Abnormal (test code = 27578-2) [facility] 10:03:00 Test Item Value Reference Range Interpretation Comments MAGNESIUM (test code = 8915198536) 2.4 mg/dL 1.7-2.4 Lab Interpretation (test code = Normal 65723-7) [facility] WITH [id number] 09:48:00 Test Item Value Reference Range Interpretation [...] RDW-SD (test code = 45.7 fL 38.5-51.6 46279-8) RDW-CV (test code = 14.3 % 12.1-15.4 788-0) PLT (test code = See_Comment HH [Automated 777-3) message] The system which generated this result transmit dain reference range : 150 - 328 10*3/ ?L. The reference range was not u sed to interpret th is result as normal/abnormal . MPV (test code = 9.1 fL 9.8-13 L 80319-9) NRBC/100 WBC (test See_Comment [Automat ed code = 3632579302) message] The system which generated this result transmit dain reference range : 0.0 - 10.0 /100 WBCs. The reference range was not used to interpret this result as normal/abnormal . NRBC x10^3 (test code <0.01 See_Comment [Auto mated = 0708122103) message] The system which generated this result transmit dain reference range : 10*3/?L. The reference range was not used to interpret this result as normal/abnormal . GRAN MAT (NEUT) % 78.9 % (test code = 770-8) IMM GRAN % (test code 1.70 % = 5156474392) LYMPH % (test code = 8.7 % 736-9) MONO % (test code = 9.1 % 5905-5) EOS % (test code = 0.9 % 713-8) BASO % (test code = 0.7 % 706-2) GRAN MAT x10^3(ANC) 11.96 10*3/uL 1.99-6.95 H (test code = 9823401868) IMM GRAN x10^3 (test 0.26 10*3/uL 0-0.06 H code = 3974192991) LYMPH x10^3 (test code 1.32 10*3/uL 1.09-3.23 = 731-0) MONO x10^3 (test code 1.38 10*3/uL 0.36-1.02 H = 742-7) EOS x10^3 (test code = 0.13 10*3/uL 0.06-0.53 711-2) BASO x10^3 (test code 0.11 10*3/uL 0.01-0.09 H = 704-7) Lab Interpretation Abnormal (test code = 00954-6) [facility] WITH [id number] 10:40:00 Test Item Value Reference Range Interpretation [...] RDW-SD (test code = 46.3 fL 38.5-51.6 66446-9) RDW-CV (test code = 14.5 % 12.1-15.4 788-0) PLT (test code = See_Comment HH [Automated 777-3) message] The sy stem which generated this result transmitted reference range : 150 - 328 10*3/ ?L. The reference r meredith was not used to interpret this result as normal/abnormal . MPV (test code = 9.1 fL 9.8-13 L 80301-9) NRBC/100 WBC (test See_Comment [Automat ed code = 0613525817) message] The system which generated this result transmitted reference range : 0.0 - 10.0 /100 WBCs. The refer ence range was not u sed to interpret th is result as normal/abnormal . NRBC x10^3 (test code <0.01 See_Comment [Auto mated = 3006942042) message] The s ystem which generated this result transmitted reference range : 10*3/?L. The reference range was not used to interpret this result as normal/abnormal . GRAN MAT (NEUT) % 74.7 % (test code = 770-8) IMM GRAN % (test code 2.00 % = 3724679235) LYMPH % (test code = 10.0 % 736-9) MONO % (test code = 11.4 % 5905-5) EOS % (test code = 1.3 % 713-8) BASO % (test code = 0.6 % 706-2) GRAN MAT x10^3(ANC) 9.44 10*3/uL 1.99-6.95 H (test code = 6594250249) IMM GRAN x10^3 (test 0.25 10*3/uL 0-0.06 H code = 4825125048) LYMPH x10^3 (test code 1.26 10*3/uL 1.09-3.23 = 731-0) MONO x10^3 (test code 1.44 10*3/uL 0.36-1.02 H = 742-7) EOS x10^3 (test code = 0.16 10*3/uL 0.06-0.53 711-2) BASO x10^3 (test code 0.07 10*3/uL 0.01-0.09 = 704-7) Lab Interpretation Abnormal (test code = 41453-0) [facility] METABOLIC PANEL (NA, K, CL, CO2, GLUCOSE, BUN, CREATININE, CA)2020-04-24 10:39:00 Test Item Value Reference Range Interpretation Comments NA (test code = 133 mmol/L 135-145 L 8486285862) K (test code = 4.3 mmol/L 3.5-5 4175970536) CL (test code = 99 mmol/L 98-108 8994028545) CO2 TOTAL (test code = 29 mmol/L 23-31 4382747578) AGAP (test code = 2-16 1973587035) BUN (test code = 20 mg/dL 7-23 0479405544) GLUCOSE (test code = 109 mg/dL 70-110 2003244152) CREATININE (test code = 0.78 mg/dL 0.6-1.25 0215318802) CALCIUM (test code = 8.4 mg/dL 8.6-10.6 L 4329599847) eGFR Calculation mL/min/1.73m2 (Non-) (test code = 4432208218) eGFR Calculation mL/min/1.73m2 () (test code = 4999907157) GILBERTO (test code = GILBERTO) Association of [...] tests). Lab Interpretation Abnormal (test code = 55147-2) [facility] 10:39:00 Test Item Value Reference Range Interpretation Comments MAGNESIUM (test code = 4402343430) 2.2 mg/dL 1.7-2.4 Lab Interpretation (test code = Normal 78030-5) [facility] ABDOM[facility] PELVIS W [id number] 09:30:06 1. ?Overall, no significant change in [...] agree with theabove report.[facility] THORAX W [id number] 03:46:28 Acute pulmonary emboli in the anterior [...] andmorphology. No significant pericardial thickening or effusion. Rdmenriz-yq-itkam cardiomediastinal shift. Scattered subcentimeter mediastinal and bilateral [...] andmorphology. No significant pericardial thickening or effusion. Dyzaqvst-ui-fjapu cardiomediastinal shift.Scattered subcentimeter mediastinal and bilateral hilar [...] agree with theabove report.[facility] (ID NOW RAPID TESTING)2020-04-23 17:45:00 Test Item Value Reference Range Interpretation Comments SARS-CoV-2 Rapid ID NOW Not Detected Not Detected (test code = 49165-5) GILBERTO (test code = GILBERTO) ID NOW COVID-19 Assay is an isothermal nucleic acid amplification test intended for the qualitative detection of nucleic acid from SARS-CoV-2 viral RNA in nasopharyngeal (COATER SMOKING PIPE) specimens. It is used under Emergency Use [...] indicated. Lab Interpretation Normal (test code = 39232-0) [facility]2020-[facility]-31 17:40:00 Test Item Value Reference Range Interpretation Comments PALB (test code = 13267-2) 11.8 mg/dL 18-45 L Lab Interpretation (test code = Abnormal 73821-8) [facility] 1 [id number] 15:00:55 Stable appearance of left pleural effusion [...] agree with theabove report.[facility]OT[facility] [id number] 14:14:00 Test Item Value Reference Range Interpretation Comments K (test code = 7237395266) 4.8 mmol/L 3.5-5 Lab Interpretation (test code = Normal 98544-5) [facility] WITH [id number] 11:30:00 Test Item Value Reference Range Interpretation Comments WBC (test code = See_Comment H [Automated 8990-2) message] The sy stem which generated this [...] RDW-SD (test code = 45.0 fL 38.5-51.6 42434-1) RDW-CV (test code = 14.5 % 12.1-15.4 788-0) PLT (test code = See_Comment HH [Automated 777-3) message] The sy stem which generated this result transmitted reference range : 150 - 328 10*3/ ?L. The reference r meredith was not used to interpret this result as normal/abnormal . MPV (test code = 9.4 fL 9.8-13 L 33653-0) IPF % (test code = 1.6 % 1.2-10.7 Platelet count 1277946956) measured by fluorescence method. NRBC/100 WBC (test See_Comment [Automat ed code = 6000485618) message] The system which generated this result transmitted reference range : 0.0 - 10.0 /100 WBCs. The refer ence range was not u sed to interpret th is result as normal/abnormal . NRBC x10^3 (test code <0.01 See_Comment [Auto mated = 3050854041) message] The s ystem which generated this result transmitted reference range : 10*3/?L. The reference range was not used to interpret this result as normal/abnormal . GRAN MAT (NEUT) % 73.4 % (test code = 770-8) IMM GRAN % (test code 1.80 % = 8947686729) LYMPH % (test code = 12.6 % 736-9) MONO % (test code = 10.8 % 5905-5) EOS % (test code = 1.0 % 713-8) BASO % (test code = 0.4 % 706-2) GRAN MAT x10^3(ANC) 9.57 10*3/uL 1.99-6.95 H (test code = 8689803168) IMM GRAN x10^3 (test 0.24 10*3/uL 0-0.06 H code = 2569773354) LYMPH x10^3 (test code 1.64 10*3/uL 1.09-3.23 = 731-0) MONO x10^3 (test code 1.41 10*3/uL 0.36-1.02 H = 742-7) EOS x10^3 (test code = 0.13 10*3/uL 0.06-0.53 711-2) BASO x10^3 (test code 0.05 10*3/uL 0.01-0.09 = 704-7) Lab Interpretation Abnormal (test code = 68643-5) [facility] METABOLIC PANEL (NA, K, CL, CO2, GLUCOSE, BUN, CREATININE, CA)2020-04-23 10:52:00 Test Item Value Reference Range Interpretation Comments NA (test code = 132 mmol/L 135-145 L 9524184546) K (test code = 5.7 mmol/L 3.5-5 H 7986245513) CL (test code = 97 mmol/L 98-108 L 8289059391) CO2 TOTAL (test code = 26 mmol/L 23-31 1307206361) AGAP (test code = 2-16 9428392781) BUN (test code = 34 mg/dL 7-23 H 8999018650) GLUCOSE (test code = 101 mg/dL 70-110 3403163390) CREATININE (test code = 0.85 mg/dL 0.6-1.25 1513062988) CALCIUM (test code = 9.0 mg/dL 8.6-10.6 8575259456) eGFR Calculation mL/min/1.73m2 (Non-) (test code = 7386723304) eGFR Calculation mL/min/1.73m2 () (test code = 7508669404) GILBERTO (test code = GILBERTO) Association of [...] tests). Lab Interpretation Abnormal (test code = 58686-3) [facility] 10:52:00 Test Item Value Reference Range Interpretation Comments MAGNESIUM (test code = 3284047625) 2.3 mg/dL 1.7-2.4 Lab Interpretation (test code = Normal 36157-9) [facility] 1 [id number] 13:26:55 FINDINGS/IMPRESSION: 1. ?A left pigtail chest [...] upper abdomen. Preliminary Report Dictated by Resident: Irfan Norman ILincoln MD., have reviewed this study and agree with theabove report.XR CHEST 1 VW HISTORY: left pleural effusion COMPARISON: Chest x-ray on 04/21/2020 [facility], Radiant Results Inft User - 04/22/2020 [...] agree with theabove report.[facility]W 2020-04-22 13:24:27FINDINGS/IMPRESSION: 1. ?A [...] in bed COMPARISON: Chest x-ray on 04/20/2020 [facility], Radiant Results Inft User - 04/22/2020 [...] this study and agree with theabove report. [facility] METABOLIC PANEL (NA, K, CL, CO2, GLUCOSE, BUN, CREATININE, CA)2020-04-22 11:49:00 Test Item Value Reference Range Interpretation Comments NA (test code = 132 mmol/L 135-145 L 0404709412) K (test code = 4.7 mmol/L 3.5-5 1645971854) CL (test code = 97 mmol/L 98-108 L 1311134840) CO2 TOTAL (test code = 30 mmol/L 23-31 6243171415) AGAP (test code = 2-16 7484485745) BUN (test code = 28 mg/dL 7-23 H 2853540865) GLUCOSE (test code = 117 mg/dL 70-110 H 6636697277) CREATININE (test code = 0.88 mg/dL 0.6-1.25 4819480702) CALCIUM (test code = 8.8 mg/dL 8.6-10.6 3900606574) eGFR Calculation mL/min/1.73m2 (Non-) (test code = 5950446684) eGFR Calculation mL/min/1.73m2 () (test code = 6641313269) GILBERTO (test code = GILBERTO) Association of [...] tests). Lab Interpretation Abnormal (test code = 14724-8) [facility] 11:49:00 Test Item Value Reference Range Interpretation Comments MAGNESIUM (test code = 1227446720) 2.4 mg/dL 1.7-2.4 Lab Interpretation (test code = Normal 36649-8) [facility] WITH [id number] 11:23:00 Test Item Value Reference Range Interpretation Comments WBC (test code = See_Comment H [Automated 6690-2) message] The sy stem which generated this result transmitted reference range : 4.20 - 10.70 10*3/?L. The reference range was not used to interpret this result as normal/abnormal . RBC (test code = See_Comment L [Automated 139-8) message] The sy stem which generated this [...] RDW-SD (test code = 44.9 fL 38.5-51.6 65655-4) RDW-CV (test code = 14.4 % 12.1-15.4 788-0) PLT (test code = See_Comment HH [Automated 777-3) message] The sy stem which generated this result transmitted reference range : 150 - 328 10*3/ ?L. The reference r meredith was not used to interpret this result as normal/abnormal . MPV (test code = 9.5 fL 9.8-13 L 60468-4) NRBC/100 WBC (test See_Comment [Automat ed code = 3150646427) message] The system which generated this result transmitted reference range : 0.0 - 10.0 /100 WBCs. The refer ence range was not u sed to interpret th is result as normal/abnormal . NRBC x10^3 (test code <0.01 See_Comment [Auto mated = 0076713838) message] The s ystem which generated this result transmitted reference range : 10*3/?L. The reference range was not used to interpret this result as normal/abnormal . GRAN MAT (NEUT) % 80.3 % (test code = 770-8) IMM GRAN % (test code 1.50 % = 2762580678) LYMPH % (test code = 7.2 % 736-9) MONO % (test code = 9.7 % 5905-5) EOS % (test code = 0.7 % 713-8) BASO % (test code = 0.6 % 706-2) GRAN MAT x10^3(ANC) 9.99 10*3/uL 1.99-6.95 H (test code = 2561427378) IMM GRAN x10^3 (test 0.19 10*3/uL 0-0.06 H code = 9982554921) LYMPH x10^3 (test code 0.90 10*3/uL 1.09-3.23 L = 731-0) MONO x10^3 (test code 1.21 10*3/uL 0.36-1.02 H = 742-7) EOS x10^3 (test code = 0.09 10*3/uL 0.06-0.53 711-2) BASO x10^3 (test code 0.07 10*3/uL 0.01-0.09 = 704-7) Lab Interpretation Abnormal (test code = 22025-8) [facility] WITH [id number] 14:15:00 Test Item Value Reference Range Interpretation [...] RDW-SD (test code = 44.4 fL 38.5-51.6 30546-7) RDW-CV (test code = 14.2 % 12.1-15.4 788-0) PLT (test code = See_Comment HH [Automated 777-3) message] The sy stem which generated this result transmitted reference range : 150 - 328 10*3/ ?L. The reference r meredith was not used to interpret this result as normal/abnormal . MPV (test code = 9.0 fL 9.8-13 L 10593-7) NRBC/100 WBC (test See_Comment [Automat ed code = 3939886993) message] The system which generated this result transmitted reference range : 0.0 - 10.0 /100 WBCs. The refer ence range was not u sed to interpret th is result as normal/abnormal . NRBC x10^3 (test code <0.01 See_Comment [Auto mated = 3741084338) message] The s ystem which generated this result transmitted reference range : 10*3/?L. The reference range was not used to interpret this result as normal/abnormal . GRAN MAT (NEUT) % 76.4 % (test code = 770-8) IMM GRAN % (test code 1.30 % = 7494843612) LYMPH % (test code = 10.9 % 736-9) MONO % (test code = 9.6 % 5905-5) EOS % (test code = 1.1 % 713-8) BASO % (test code = 0.7 % 706-2) GRAN MAT x10^3(ANC) 9.41 10*3/uL 1.99-6.95 H (test code = 1394966491) IMM GRAN x10^3 (test 0.16 10*3/uL 0-0.06 H code = 2073206284) LYMPH x10^3 (test code 1.34 10*3/uL 1.09-3.23 = 731-0) MONO x10^3 (test code 1.18 10*3/uL 0.36-1.02 H = 742-7) EOS x10^3 (test code = 0.13 10*3/uL 0.06-0.53 711-2) BASO x10^3 (test code 0.08 10*3/uL 0.01-0.09 = 704-7) Lab Interpretation Abnormal (test code = 46888-7) [facility] METABOLIC PANEL (NA, K, CL, CO2, GLUCOSE, BUN, CREATININE, CA)2020-04-21 13:47:00 Test Item Value Reference Range Interpretation Comments NA (test code = 130 mmol/L 135-145 L 1840717311) K (test code = 4.8 mmol/L 3.5-5 7043524592) CL (test code = 95 mmol/L 98-108 L 3806934886) CO2 TOTAL (test code = 29 mmol/L 23-31 0886162632) AGAP (test code = 2-16 1804424899) BUN (test code = 25 mg/dL 7-23 H 6530641224) GLUCOSE (test code = 98 mg/dL 70-110 2817352126) CREATININE (test code = 0.78 mg/dL 0.6-1.25 3947060365) CALCIUM (test code = 8.2 mg/dL 8.6-10.6 L 5451898970) eGFR Calculation mL/min/1.73m2 (Non-) (test code = 8529666695) eGFR Calculation mL/min/1.73m2 () (test code = 2681656548) GILBERTO (test code = GILBERTO) Association of [...] tests). Lab Interpretation Abnormal (test code = 31766-5) [facility] 13:47:00 Test Item Value Reference Range Interpretation Comments MAGNESIUM (test code = 2753131691) 2.1 mg/dL 1.7-2.4 Lab Interpretation (test code = Normal 10168-1) [facility]2020-08-28 21:30:00 Test Item Value Reference Range Interpretation Comments PALB (test code = 35158-9) 9.3 mg/dL 18-45 L Lab Interpretation (test code = Abnormal 10481-4) [facility] [id number] 14:32:00 Test Item Value Reference Range Interpretation Comments BODY FLUID CULT No organisms isolated (test code = 611-4) Gram stain (test Occasional (Rare) code = 664-3) Polymorphonuclear leukocytes [facility] CHE[facility] 1 [id number] 13:09:21EXAM: XR CHEST 1 VW HISTORY: ct [...] vessels are normal. [facility] (NA, K, CL, CO2, GLUCOSE, BUN, CREATININE, CA)2020-04-20 11:00:00 Test Item Value Reference Range Interpretation Comments NA (test code = 132 mmol/L 135-145 L 7871766042) K (test code = 5.2 mmol/L 3.5-5 H 2526446670) CL (test code = 100 mmol/L 98-108 1282231380) CO2 TOTAL (test code = 24 mmol/L 23-31 5817738712) AGAP (test code = 2-16 0745463715) BUN (test code = 19 mg/dL 7-23 9015506643) GLUCOSE (test code = 121 mg/dL 70-110 H 1015731094) CREATININE (test code = 0.77 mg/dL 0.6-1.25 6159794709) CALCIUM (test code = 8.2 mg/dL 8.6-10.6 L 3382237579) eGFR Calculation mL/min/1.73m2 (Non-) (test code = 7323437773) eGFR Calculation mL/min/1.73m2 () (test code = 1781476985) GILBERTO (test code = GILBERTO) Association of [...] tests). Lab Interpretation Abnormal (test code = 75921-2) [facility]2020-08-28 11:00:00 Test Item Value Reference Range Interpretation Comments MAGNESIUM (test code = 2112563141) 2.1 mg/dL 1.7-2.4 Lab Interpretation (test code = Normal 45617-0) [facility]2020-08-28 11:00:00 Test Item Value Reference Range Interpretation Comments PHOSPHORUS (test code = 4918212051) 3.9 mg/dL 2.5-5 Lab Interpretation (test code = Normal 65108-2) [facility] WITH [id number] 10:23:00 Test Item Value Reference Range Interpretation [...] RDW-SD (test code = 45.2 fL 38.5-51.6 45719-1) RDW-CV (test code = 14.2 % 12.1-15.4 788-0) PLT (test code = See_Comment HH [Automated 777-3) message] The system which generated this result transmit dain reference range : 150 - 328 10*3/ ?L. The reference range was not u sed to interpret th is result as normal/abnormal . MPV (test code = 9.3 fL 9.8-13 L 14716-7) NRBC/100 WBC (test See_Comment [Automat ed code = 8201657347) message] The system which generated this result transmit dain reference range : 0.0 - 10.0 /100 WBCs. The reference range was not used to interpret this result as normal/abnormal . NRBC x10^3 (test code <0.01 See_Comment [Auto mated = 7041752418) message] The system which generated this result transmit dain reference range : 10*3/?L. The reference range was not used to interpret this result as normal/abnormal . GRAN MAT (NEUT) % 79.8 % (test code = 770-8) IMM GRAN % (test code 1.50 % = 6800206390) LYMPH % (test code = 9.8 % 736-9) MONO % (test code = 7.5 % 5905-5) EOS % (test code = 0.6 % 713-8) BASO % (test code = 0.8 % 706-2) GRAN MAT x10^3(ANC) 10.64 10*3/uL 1.99-6.95 H (test code = 4572000290) IMM GRAN x10^3 (test 0.20 10*3/uL 0-0.06 H code = 2519949116) LYMPH x10^3 (test code 1.31 10*3/uL 1.09-3.23 = 731-0) MONO x10^3 (test code 1.00 10*3/uL 0.36-1.02 = 742-7) EOS x10^3 (test code = 0.08 10*3/uL 0.06-0.53 711-2) BASO x10^3 (test code 0.10 10*3/uL 0.01-0.09 H = 704-7) Lab Interpretation Abnormal (test code = 17538-0) [facility] [id number] 12:25:53 No residual pleural effusion noted. Preliminary [...] reviewed this study and agree with theabove report.[facility] METABOLIC PANEL (NA, K, CL, CO2, GLUCOSE, BUN, CREATININE, CA)2020-04-19 11:09:00 Test Item Value Reference Range Interpretation Comments NA (test code = 133 mmol/L 135-145 L 9798572585) K (test code = 4.2 mmol/L 3.5-5 1991478343) CL (test code = 101 mmol/L 98-108 2756604427) CO2 TOTAL (test code = 26 mmol/L 23-31 8454951741) AGAP (test code = 2-16 7548786867) BUN (test code = 15 mg/dL 7-23 2117581642) GLUCOSE (test code = 113 mg/dL 70-110 H 8816661592) CREATININE (test code = 0.73 mg/dL 0.6-1.25 3816815973) CALCIUM (test code = 8.1 mg/dL 8.6-10.6 L 9510924620) eGFR Calculation mL/min/1.73m2 (Non-) (test code = 8313347955) eGFR Calculation mL/min/1.73m2 () (test code = 0994394312) GILBERTO (test code = GILBERTO) Association of [...] tests). Lab Interpretation Abnormal (test code = 37048-6) [facility]2020-08-27 11:09:00 Test Item Value Reference Range Interpretation Comments MAGNESIUM (test code = 8895709595) 2.1 mg/dL 1.7-2.4 Lab Interpretation (test code = Normal 45344-3) [facility]2020-08-27 11:09:00 Test Item Value Reference Range Interpretation Comments PHOSPHORUS (test code = 1895718666) 3.9 mg/dL 2.5-5 Lab Interpretation (test code = Normal 21711-5) [facility] WITH [id number] 10:59:00 Test Item Value Reference Range Interpretation Comments WBC (test code = See_Comment H [Automated 3390-2) message] The sy stem which generated this [...] RDW-SD (test code = 46.0 fL 38.5-51.6 79198-5) RDW-CV (test code = 14.2 % 12.1-15.4 788-0) PLT (test code = See_Comment HH [Automated 777-3) message] The sy stem which generated this result transmitted reference range : 150 - 328 10*3/ ?L. The reference r meredith was not used to interpret this result as normal/abnormal . MPV (test code = 9.3 fL 9.8-13 L 66631-9) NRBC/100 WBC (test See_Comment [Automat ed code = 2092585151) message] The system which generated this result transmitted reference range : 0.0 - 10.0 /100 WBCs. The refer ence range was not u sed to interpret th is result as normal/abnormal . NRBC x10^3 (test code <0.01 See_Comment [Auto mated = 3480256770) message] The s ystem which generated this result transmitted reference range : 10*3/?L. The reference range was not used to interpret this result as normal/abnormal . GRAN MAT (NEUT) % 79.2 % (test code = 770-8) IMM GRAN % (test code 1.00 % = 0099689913) LYMPH % (test code = 11.4 % 736-9) MONO % (test code = 6.7 % 5905-5) EOS % (test code = 1.0 % 713-8) BASO % (test code = 0.7 % 706-2) GRAN MAT x10^3(ANC) 9.49 10*3/uL 1.99-6.95 H (test code = 1898193503) IMM GRAN x10^3 (test 0.12 10*3/uL 0-0.06 H code = 3429537955) LYMPH x10^3 (test code 1.36 10*3/uL 1.09-3.23 = 731-0) MONO x10^3 (test code 0.80 10*3/uL 0.36-1.02 = 742-7) EOS x10^3 (test code = 0.12 10*3/uL 0.06-0.53 711-2) BASO x10^3 (test code 0.08 10*3/uL 0.01-0.09 = 704-7) Lab Interpretation Abnormal (test code = 66725-5) [facility] [id number] 22:29:00 Test Item Value Reference Range Interpretation Comments Blood Culture-Aerobic No organisms No growth Previo us (test code = 07426-0) isolated prelim inary verified result was Culture In Progress on 04/13/2020 at 06 06 CDT Blood Culture positive. No growth AA Previous Culture-Anaerobic See Blood Culture preli minary (test code = 30703-5) Workup for verifi ed result additional was Culture In information. Progress on 04/12/2020 at 18 01 CDT Lab Interpretation Abnormal (test code = 04538-9) [facility] WITH TUBE WITH IMAGING 2020-04-18 15:38:00Successful image guided 10 Niuean pigtail chest tube insertioninto the left pleural [...] was obtained. Prior to beginning the procedure, Parker Protocolwas performed to confirm the patient's identity [...] pleural space. The tractwas dilated to 10 Niuean, and a 10 Niuean pigtail chest tube was insertedand coiled within [...] demonstrated a large amount of pleural fluid. [facility], Radiant Results Inft User - 04/18/2020 [...] was obtained. Prior to beginning the procedure, Parker Protocolwas performed to confirm the patient's identity [...] pleural space. The tractwas dilated to 10 Niuean, and a 10 Niuean pigtail chest tube was insertedand coiled within [...] of pleural fluid. IMPRESSIONSuccessful image guided 10 Niuean pigtail chest tube insertioninto the left pleural space. PLAN: Post procedure chest radiograph will be obtained.[facility] 1 [id number] 13:37:38 Hazy left midlung opacity, may represent [...] agree with the abovereport.[facility] (NA, K, CL, CO2, GLUCOSE, BUN, CREATININE, CA)2020-04-18 11:18:00 Test Item Value Reference Range Interpretation Comments NA (test code = 134 mmol/L 135-145 L 6291158916) K (test code = 4.4 mmol/L 3.5-5 8126672101) CL (test code = 102 mmol/L 98-108 0732155207) CO2 TOTAL (test code = 26 mmol/L 23-31 9599040551) AGAP (test code = 2-16 5735240735) BUN (test code = 12 mg/dL 7-23 8135299736) GLUCOSE (test code = 106 mg/dL 70-110 5357156938) CREATININE (test code = 0.74 mg/dL 0.6-1.25 4477390336) CALCIUM (test code = 7.5 mg/dL 8.6-10.6 L 4840541672) eGFR Calculation mL/min/1.73m2 (Non-) (test code = 8084492280) eGFR Calculation mL/min/1.73m2 () (test code = 9074921829) GILBERTO (test code = GILBERTO) Association of [...] tests). Lab Interpretation Abnormal (test code = 66891-4) [facility]2020-08-26 11:18:00 Test Item Value Reference Range Interpretation Comments MAGNESIUM (test code = 9325995321) 2.0 mg/dL 1.7-2.4 Lab Interpretation (test code = Normal 90359-5) [facility]2020-08-26 11:18:00 Test Item Value Reference Range Interpretation Comments PHOSPHORUS (test code = 0544336357) 3.4 mg/dL 2.5-5 Lab Interpretation (test code = Normal 08966-0) [facility] WITH [id number] 10:46:00 Test Item Value Reference Range Interpretation [...] RDW-SD (test code = 46.5 fL 38.5-51.6 21130-8) RDW-CV (test code = 14.5 % 12.1-15.4 788-0) PLT (test code = See_Comment HH [Automated 777-3) message] The system which generated this result transmit dain reference range : 150 - 328 10*3/ ?L. The reference range was not u sed to interpret th is result as normal/abnormal . MPV (test code = 9.6 fL 9.8-13 L 99320-6) NRBC/100 WBC (test See_Comment [Automat ed code = 7117714222) message] The system which generated this result transmit dain reference range : 0.0 - 10.0 /100 WBCs. The reference range was not used to interpret this result as normal/abnormal . NRBC x10^3 (test code <0.01 See_Comment [Auto mated = 1019289442) message] The system which generated this result transmit dain reference range : 10*3/?L. The reference range was not used to interpret this result as normal/abnormal . GRAN MAT (NEUT) % 82.1 % (test code = 770-8) IMM GRAN % (test code 0.90 % = 5551002951) LYMPH % (test code = 9.2 % 736-9) MONO % (test code = 6.6 % 5905-5) EOS % (test code = 0.7 % 713-8) BASO % (test code = 0.5 % 706-2) GRAN MAT x10^3(ANC) 10.02 10*3/uL 1.99-6.95 H (test code = 1846330527) IMM GRAN x10^3 (test 0.11 10*3/uL 0-0.06 H code = 8006867153) LYMPH x10^3 (test code 1.12 10*3/uL 1.09-3.23 = 731-0) MONO x10^3 (test code 0.80 10*3/uL 0.36-1.02 = 742-7) EOS x10^3 (test code = 0.08 10*3/uL 0.06-0.53 711-2) BASO x10^3 (test code 0.06 10*3/uL 0.01-0.09 = 704-7) Lab Interpretation Abnormal (test code = 87751-5) [facility] [id number] 20:01:00 Test Item Value Reference Range Interpretation Comments Blood Culture-Aerobic No organisms No growth Previo us (test code = 86554-2) isolated prelim inary verified result was Culture [...] Culture-Anaerobic isolated preliminar y (test code = 91323-5) verifi ed result was Culture In Progress [...] CDT Lab Interpretation Normal (test code = 01769-9) [facility] [id number] 19:38:57 FINDINGS/IMPRESSION: There are 2 left-sided chest [...] by Dr. Mathieu Chapa.[facility] AreaCyto Pleural [id number] 17:29:00 Test Item Value Reference Range Interpretation Comments Case Report (test code Non-Gynecologic = 1166910938) Cytology ?Case: [id number] ?Authorizing Provider: ?Vance Stafford MD ?Collected: ? 04/16/2020 1650 ?Ordering Location: ? ? Surgery ([facility]) ? Received: ?04/16/2020 1809 ?Pathologist: ? Alice Aj MD ? Specimen: ? ?PLEURAL, LEFT, EFFUSION ? Final Diagnosis (test v8nbkFQlFTAbd4dfQBGdgD code = 6160546507) FuZzEwMzNcZnRuYmpcdWMx BRksqiWrUUcdr4AeB6EnLv AwMFxhbnNpXGRlZmxhbmcx NCTpXIQ1tiInTRYfRAjdNE GrVYzkJv9ulDZsyErjMiQn JMYtq5nwzlULmoiyzGe6x3 ftYGSmRdY1xFDdRBkaE1ju wzYbwJYpIQZgXTh6mD82OY EisV9wcTCuVGrkfeHwQsO7 HWlwJJClDcN7FSHixMQfXM TlW6phNZWhBAlcHNOpGLmm wKBzJDV8cPaoo1I4gZNphQ VyeTopMkTwTzKzLGUEh7Qy CXp4vOusK5SyHVHgJuQ7qW QgUGFyYWdyYXBoIEZvbnQ7 nG43RTszgyW9uUDby4Ube9 2ss373sF1tsCOfCTL8UZZt MUMvgDMrZIEoVWU9JFJmeS PuO9xaHAhbWI8lvszcTQT8 MFxtYXJndDcyMFxtYXJnYj VrrWUdCUAhoSapTJzkj845 QGI7OtJvJI4vM5Dwx4J9wB 9maXRcZGVmdGFiNzIwXGZv vp1qcUUgQHtpz0KiWCI1pn T5bPMihUKmMIUwMB36Zjwp u5JuAauxIGA6UPSoudIpg0 Chd7nxIcNnrxMcE1whG5Py ZHJoZWFkXHBnYnJkcmZvb3 Aqz6AynBAmdCh6g0knODKm HSMblOouo1xwZQN9METhZ2 N5xMAgm1uuAQbeEGTwgIR3 cmTjUGWiqUStX8PliC8iVM mnHE8rjng0m7dsMuFbLL4k mdxum7zjUCjdJRMiDBY1Ly XlYTYws0FzibimJpWkc9Fl pGHkCTdyI90gz549AKDifu JoZ9giyACwwivulNVjtqdx ODhdpkC1KRKtqjFrnVhssR 3gGsXjGqEnGQvsEN8aAEGi O6vloFUhBXJvAZWuH4nlTu ObzM6suBsmQJaeOeUbXfQu MFxiIEEuICBQTEVVUkEsIE yEXhI9PHCYB7DKF4MCASUV SVMgRkxVSURccGFyICAgIC KgMJ7oIV2UKPWPUZMFQQ0N GRFJIcCKW75RQgCYQTdTMP 8XNUJOW5GBMZgDG5agXMAf ICAgICAgLSBORUdBVElWRS OVF4GfSZAAHLkKPJ5JCUHM TExTXHBsYWluXGYxXGZzMj BcbGFuZzEwMzNcaGljaFxm ICcyBaFbZKVeNQcsH2vuJd ChYlNwQLZaIOAMSYIRN28H EC7GEGxsHWT7w6gcyIJjLW GrlKYlZkLeONJyRZYiz5db ZGVmbGFuZzEwMzNcZnRuYm oqyZPbTRVuPsBrj8vsv708 zMSzq6dtFKFoIeV1pYJkYM AzoZdqjvv4bHgcStAwJWMw j5wmnyKjVgEbNVNfIDSqNO JacYOlK918PHAtVXocx1oj g2RmYHHtgDMfs8P1ZQNQIL zsMzVwY516m1bbu8pfpnHn iEZ5FTSfRHS5XGdocfOcdc A8UEsmqGCsYkR3PWvyluZa WWqqquSlwcDpFwg3XPMfT1 77ANK5iCsjh9ipZHK7UGVk ZBXxQukiEw7sgRRdX449QD VcDRIOLILyaQu9ZIBbalMn xiDzyZZEw937T121t8igUR MvncOrzIkIreapf0dbL175 XHBhcGVydzEyMjQwXHBhcG IxtKW3URIyNE8agfvpXQjj JQsiKZWntgQ9BOEwrOIoY2 GqAMPlFY6icspuKTU1HPtp LLNrEIZ5UrDhDCUgd9Opmg l4CyCjsm7sjc96ZBV2p5Li xBveEXC9KUP0GoAnQr0tsH GfJGJnAN1sSgYbxXPnNREe jh07jQxfNJxtdbOgdY8hNj VtSOAyvCLdRSJrUJ9ahQMs HPLvtO0bwgduOBCgZuHgsx lnAJMyzJoiuvKaVv9rtEuc YQR7JFqzY6kfyM5sBwU7NA llG3zzwT3hIBi1SMzqnWQ6 YQVahD8qMZ1akyvcs9cxLT zkWOzqTRYbmeI2wrX1LFAs jNFjZ9WycJ0pWMUvEC0zvy jzf9rbVFC0ECwdSZKiTBC1 HwVyPSUca2Iggbe8SwCgl2 BizALcLFpmA10xh571DKKw wzIzB3awkAXiilcavJVoks akVGayisC5PCRzGDTiEKsf XGYxXGZzMjBcbGFuZzEwMz NcaGljaFxmMVxkYmNoXGYx IYwoR9soMmAxN6XtPMOlVy RaeJHqZPxqhAC3YNMoRMJs d43syHa1OMYrfzvum9AnOG CezMAgePZteO6gpwHez4ta POQyTYMeJBXcX4EeWWA9bR OsFKAytOMkrHR0XN2dqjGv BY5iMHWmDkwdleDpgJBkac MqVABmWXqdy4ksGQ8nIJTm zEfhoH8blZE9TBIem8olzV AvcXJjy1qwh4TxwiHnLLtd MVCwWVloRXKbUEToEX8eNM BalGVhrhXdi0H2BggzxHUh mmayTbyvieR0UJhygbkwMI UvYEhaV4xqVjQfTTHaqHkz Iylbr9AgFEKmDZZjLoqtvZ FyfX0= Final Diagnosis Comment p6wdwRTgJDVfwHJvHhOdIQ (test code = UdDCGey2qpPEBfjUJiJnVo 4553215278) MzNcZnRuYmpcdWMxXGRlZm Fpp9raw151yBAxe9rrCYRl FhV1hSQuTVDjzAPnF853r5 ueg1enbfQuiME0MYPvMBS6 HSslgqVpquS7TImabAOjFk E4RTqvvySjJKoocyKzneOf Mcf9YHGtR141VGM2iRwcf8 ihPXB3AAUlTDVtKzWeLl2q jDReU101FHSvDOLWRZDvzM b0XSQblhJuvdJwdAVPz327 H210x2aqUSGahsTwmUcZxu pej5muX789NCNzoEVxmpTl KgAtEKMxhVFkqMR4RACjUG 6sachyMSC2EInuGCOrqmZg LURrlTNsZ5S3WhYiwPJxF8 CkXWzkMXUszyt6CkZyIp2v wGUwbSI5FEwnh5vjy3cdnQ OaAlf3XSYlIkWkWtapJTxf c9Yob6ngRTIods3zDSK2rK VikEpks3I0cUCgFPJajQPu kmEpEJXoOlR8DZarSL4wgg 01LSWbWSQ9lv6ceUMbnIsl bkDboBTaJFtvK2FpELBgi2 80HHGeZ7FqGKOew3I2afOl BpCqYKFzdDI5sqF6KCNxMC j9cHDaxxP2evRsrECsU0oi kB1sJLfiVH3pgeaxp7srYT N3SAntRSXoyIW9iyreNZny XHAqFuF0ddLtfSToZMCumA ylDNnsk542XQY8RaVoOWIi s1SaI8DcvHbqP61njVeaN2 3wUEAmoAtlhY9yfLayyI3z ZjBcZnMyNFxxbFxwbGFpbl xmMFxmczIwXGxhbmcxMDMz BOiiH3viGaFdRWUwdNjtNB mqx9LbESAsHPMbEdTeK34w LXOgf0gyc8GmmRe0SIDcrB 2uzPPupZM4gK4qYNlooGji iXBcSP3qgY5lrmEkpELeKR T0uq0zpMkoozmhLtX9BCh3 tWLqu9U4wLPcFPXeJTCvnD AbqE0bTRPdo39bkOZ4NU27 MKycpQdwOH4xjBTgAE9iDw 3flMIejYqrMG78YPCllFys CGddWO54vGArYCZhYJqlZJ J9 Clinical Information Clinical Hx: ?Total (test code = colectomy complicated [id number]) . Requested per consulting surgery team. Gross Description (test c6msbHCbRJCmaGAxHwYvDP code = 8722064797) PaWDJjb0tvVYAvdKLoWxFr MzNcZnRuYmpcdWMxXGRlZm Fgp5bzs630fEMfw2cnBMDn JyB4aKPjPVSusFPgN791i7 ssy9qttxIcbSS0NSNiYDR7 VLmcgcOfhrS4RHjnyVNrDu Q6WOhhakApZXokzhKofnYw Ltp7XGSgO447HUO4fWmka0 qcCSO4YPRcDHWpEjUuAf0j kTIvA877MDEcTFSJESTlzN w2OZMguiFtlkAiuHYHy001 C053e4hrVHPbsvWtiUdQtz ywg1chE592NUMfiIDgfeTl QlFqANSbeBGgpXI9KPGgMY 4qmhsdNXJ6GLgmBZKgvdWl GOSpuQPuX5N0NiRzzYOdM4 RiGMxkDCStpch4EjBtRf0e vSXmfKP9IVnmi7fee4mjlT MvPts5IJMkTaHaGcveFFnv y0Rfx8mqIHVonn2lMZC3aB ZhrAbsb5W4xDUkKNXsrNCl xlOfLRJpQfI1HZzyST7ujs 00TSXkOYN4hq5bkMYwlQun fjUevASlVNdmO7VjKBDeo6 50EWPsB8FmZDScf1K9dfXd LtTsBHNgbWG2lsS1ZNObFH o4bCFdnoG1kvRrvLAoN1qi qD4wTZvjNR6gnbhmq8qlCO X1JQidKPBcnFZ0apezOQrt FOMsWkA7skZcyGSmKGQgeM qmGLhqy144XFR7IxIsONCd p0UfG5FmfGyhB44neSyrO4 4mVNVzgWokpR7snXvpaO6a ZjBcZnMyNFxxbFxwbGFpbl xmMFxmczIwXGxhbmcxMDMz CJwtJ5tzOdFoHHStvArjTO aii6IgRVEvNZIaUwImTUMu SQDJWVCTJfRhDAaXRwA3KY WVO2BTD9HKAAAVHDGwKesE AKRxvEAoJFVwN7WmglVkKP SbADEsVEutNRArSLJjJ1Fn w6RyuSVniM05PDXcvZqpWK xwYXIgUHJlcGFyZWQgMiBz vKhnSASmPRDdGSWtWW5bL9 5uYD75JJF5aV2heOsxXCBs lsDnOVFBw09ydh71l0b0DW D6dK6kbOgsBQPrZMEymrM0 lK9uZUtlPOB2 Embedded Images (test code = 6790222676) [facility] [id number] 13:05:21EXAM: XR CHEST 1 VW HISTORY: post [...] is little different than noted yesterday. ? [facility], Radiant Results Inft User - 04/17/2020 8:06 [...] the chest is little different than noted yesterday.[facility] WITH [id number] 11:18:00 Test Item Value Reference Range Interpretation [...] RDW-SD (test code = 47.8 fL 38.5-51.6 62708-4) RDW-CV (test code = 14.7 % 12.1-15.4 788-0) PLT (test code = See_Comment HH [Automated 777-3) message] The system which generated this result transmit dain reference range : 150 - 328 10*3/ ?L. The reference range was not u sed to interpret th is result as normal/abnormal . MPV (test code = 9.9 fL 9.8-13 07655-2) NRBC/100 WBC (test See_Comment [Automat ed code = 5265155670) message] The system which generated this result transmit dain reference range : 0.0 - 10.0 /100 WBCs. The reference range was not used to interpret this result as normal/abnormal . NRBC x10^3 (test code <0.01 See_Comment [Auto mated = [id number]) message] The system which generated this result transmit dain reference range : 10*3/?L. The reference range was not used to interpret this result as normal/abnormal . GRAN MAT (NEUT) % 81.7 % (test code = 770-8) IMM GRAN % (test code 1.10 % = 2856625368) LYMPH % (test code = 9.1 % 736-9) MONO % (test code = 7.3 % 5905-5) EOS % (test code = 0.5 % 713-8) BASO % (test code = 0.3 % 706-2) GRAN MAT x10^3(ANC) 10.91 10*3/uL 1.99-6.95 H (test code = 7356875618) IMM GRAN x10^3 (test 0.15 10*3/uL 0-0.06 H code = 3179852082) LYMPH x10^3 (test code 1.21 10*3/uL 1.09-3.23 = 731-0) MONO x10^3 (test code 0.97 10*3/uL 0.36-1.02 = 742-7) EOS x10^3 (test code = 0.07 10*3/uL 0.06-0.53 711-2) BASO x10^3 (test code 0.04 10*3/uL 0.01-0.09 = 704-7) Lab Interpretation Abnormal (test code = 65035-2) [facility] METABOLIC PANEL (NA, K, CL, CO2, GLUCOSE, BUN, CREATININE, CA)2020-04-17 10:49:00 Test Item Value Reference Range Interpretation Comments NA (test code = 134 mmol/L 135-145 L 1667361311) K (test code = 4.2 mmol/L 3.5-5 9826717562) CL (test code = 103 mmol/L 98-108 0904484386) CO2 TOTAL (test code = 26 mmol/L 23-31 8576864344) AGAP (test code = 2-16 9365019000) BUN (test code = 12 mg/dL 7-23 5105964221) GLUCOSE (test code = 107 mg/dL 70-110 8852693651) CREATININE (test code = 0.74 mg/dL 0.6-1.25 4590359959) CALCIUM (test code = 7.8 mg/dL 8.6-10.6 L 9399682768) eGFR Calculation mL/min/1.73m2 (Non-) (test code = 5631567214) eGFR Calculation mL/min/1.73m2 () (test code = 6727775179) GILBERTO (test code = GILBERTO) Association of [...] tests). Lab Interpretation Abnormal (test code = 24742-1) [facility] 10:49:00 Test Item Value Reference Range Interpretation Comments MAGNESIUM (test code = [id number]) 2.3 mg/dL 1.7-2.4 Lab Interpretation (test code = Normal 28423-8) [facility] 10:49:00 Test Item Value Reference Range Interpretation Comments PHOSPHORUS (test code = 6649364082) 3.8 mg/dL 2.5-5 Lab Interpretation (test code = Normal 58972-0) [facility] [id number] [facility]:37:00 Test Item Value Reference Range Interpretation Comments LDH BF (test code = 3707 U/L 2115304422) UNSPUN BODY FLUID Light Yellow COLOR (test code = 3293206972) UNSPUN BODY FLUID Clear CLARITY (test code = 2606734239) SPUN BODY FLUID Light Yellow COLOR (test code = 5726737751) SPUN BODY FLUID Clear CLARITY (test code = 6658178736) Sediment (test code The sediment volume is 0.1 = 3346421659) mLs of the total fluid volume of 3mLs and its color is white. GILBERTO (test code = Test developed and GILBERTO) characteristics determined by [facility] Laboratory Services. [facility] CHEST 1 [id number] 00:22:53 1. ?Left lower lung zone 2 [...] fortechnique. Bones: No acute osseous abnormalityis seen. [facility], Radiant Results Inft User - 04/16/2020 [...] a possible small pneumothorax.[facility] Area[facility] FLUID DIRECT [id number] 00:10:00 Test Item Value Reference Range Interpretation Comments BF COLOR Light Yellow (test code = 4900800046) BF WBC Count See_Comment [Automated (test code = message] The sy stem 8321183412) which generated this result transmitted reference range : /?L. The refere nce range was not u sed to interpret th is result as normal/abnormal . BF RBC Count <3000 See_Comment [Automated (test code = message] The sy stem 0455429317) which generated this result transmitted reference range : /?L. The refere nce range was not u sed to interpret th is result as normal/abnormal . GILBERTO (test The reference range code = GILBERTO) and other method performance specifications have not been established for this body fluid. ?The test results must be integrated into the clinical context for interpretation. [facility] FLUID MANUAL [id number] 00:10:00 Test Item Value Reference Range Interpretation Comments BF SEGS (test code = 7380503644) 78 % MACROPHAGE (test code = 8708737067) 22 % #CELS CNTD (test code = 7929771631) [facility] AreaAmylase Body [id number] 00:03:00 Test Item Value Reference Range Interpretation Comments AMYLASE BF (test 313 U/L code = 0788397143) UNSPUN BODY FLUID Yellow COLOR (test code = 2343564647) UNSPUN BODY FLUID Clear CLARITY (test code = 6196135079) SPUN BODY FLUID Yellow COLOR (test code = 1542391795) SPUN BODY FLUID Clear CLARITY (test code = 2440525158) Sediment (test code The sediment volume is = 3845743784) <0.1 mLs of the total fluid volume of 1mL and its color is red. GILBERTO (test code = Test developed and GILBERTO) characteristics determined by [facility] Laboratory Services. [facility] AreaGlucose Body [id number] 00:03:00 Test Item Value Reference Range Interpretation Comments GLUCOSE BF (test 57 mg/dL code = 7895959076) UNSPUN BODY FLUID Yellow COLOR (test code = 9006944457) UNSPUN BODY FLUID Clear CLARITY (test code = 0935693615) SPUN BODY FLUID Yellow COLOR (test code = 4412758420) SPUN BODY FLUID Clear CLARITY (test code = 6495122596) Sediment (test code The sediment volume is = 8695146866) <0.1 mLs of the total fluid volume of 1mL and its color is red. GILBERTO (test code = Test developed and GILBERTO) characteristics determined by [facility] Laboratory Services. [facility] Area[facility] Protein Body [id number] 00:03:00 Test Item Value Reference Range Interpretation Comments T.PROT BF (test 3000.0 mg/dL code = 5822057336) UNSPUN BODY FLUID Yellow COLOR (test code = 5112875492) UNSPUN BODY FLUID Clear CLARITY (test code = 1603385169) SPUN BODY FLUID Yellow COLOR (test code = 4338639624) SPUN BODY FLUID Clear CLARITY (test code = 7590755533) Sediment (test code The sediment volume is = 9182964070) <0.1 mLs of the total fluid volume of 1mL and its color is red. GILBERTO (test code = Test developed and GILBERTO) characteristics determined by [facility] Laboratory Services. [facility], Body [id number] 23:56:00 Test Item Value Reference Range Interpretation Comments PH BF (test code = 6111000687) UNSPUN BODY FLUID COLOR Light Yellow (test code = 3702818888) UNSPUN BODY FLUID Clear CLARITY (test code = 1559262268) SPUN BODY FLUID COLOR Light Yellow (test code = 0367887691) SPUN BODY FLUID CLARITY Clear (test code = 2197148792) Sediment (test code = The sediment volume is 3045984805) 0.1 mLs of the total fluid volume of 5.5mLs and its color is white/red. [facility] AreaIR DRAINAGE BY CATHETER PERITONEAL OR [id number] 21:10:26 Successful placement of a 12 Niuean drain in the left upper quadrantcollection. Successful placement of a 14 Niuean drain in the midline air fluidcollection. Successful placement of a 10 Niuean drain in the right lower quadrant fluidcollection. Preliminary Report Dictated by Resident: Hayden Bundy As the attending radiologist I was present in the room for the entirety ofthe procedure. I, Gunvir S Grier, MD., have reviewed this study and agree with the abovereport.EXAMINATION:PERCUTANEOUS ASPIRATION HISTORY: 50-year-old male with postoperative abdominal fluid collections SEDATION: Moderate sedation was administered under the supervision of atrained nurse specialist who was independent from those actually performingthe procedure. Please refer to [facility] regarding sedation time. RADIATION DOSE: 1957 mGy - cm. TECHNIQUE: The risks, benefits and alternatives were discussed and informed consentwas obtained. Prior to beginning the procedure, Parker Protocol was usedto confirm the patient's identity and planned procedure. Maximum sterilebarriers including cap, mask, hand hygiene, sterile gloves, sterile gown,large sterile drape and cutaneous antisepsis were used. The anteriorabdominal wall was sterilely prepped, and draped. The skinoverlying the left upper, right upper, andright lower quadrants wasinfiltrated with lidocaine 2%. The targeted collection in the left upper quadrant was then accessed with w23-[id number] quadrant needle using CT guidance. A 0.035 Amplatz wire wasadvanced through the coaxial needle. The tract was serially dilated to 12French. A pigtail 12 Niuean catheter was placed in the left upper quadrantcollection. Approximately, 210 cc of purulent fluid was removed. The air-fluid collection in the mid abdomen was accessed through the rightupper quadrant. An 18 Niuean pigtail catheter was placed in this collectionunder CT guidance in a similar fashion to thedrain and left upperquadrant. Approximately, 1250 cc of purulent material were removed. The fluid collection in the right lower quadrant was also accessed in asimilar fashion. A 10 Niuean pigtail catheter was placed in this collectionunder [...] aspirated at the time of the procedure. [facility], Radiant Results Inft User - 04/16/2020 4:11 PM CDTEXAMINATION: PERCUTANEOUS ASPIRATIONHISTORY: 50-year-old male with postoperative abdominal fluid collections SEDATION: Moderate sedation was administered under the supervision of atrained nurse specialist who was independent from those actually performingthe procedure. Please refer to [facility] regarding sedation time.RADIATION DOSE: 1957 mGy - cm.TECHNIQUE: The risks, benefits and alternatives were d iscussed and informed consentwas obtained. Prior to beginning the procedure, Parker Protocol was usedto confirm the patient's identity [...] serially dilated to 12French. A pigtail 12 Niuean catheter was placed in the left upper quadrantcollection. Approximately, 210 cc of purulent fluid was removed.The air-fluid collection in the mid abdomen was accessed through the rightupper quadrant. An 18 Niuean pigtail catheter was placed in this collectionunder CT guidance in a similar fa shion to the drain and left upperquadrant. Approximately, 1250 cc of purulent material were removed.The fluid collection in the right lower quadrant was also accessed in asimilar fashion. A 10 Niuean pigtail catheter was placed in this collectionunder [...] left upper quadrantcollection.Successful placement of a 14 Niuean drain in the midline air fluidcollection.Successful placement of a 10 Niuean drain in the right lower quadrant fluidcollection.Preliminary Report Dictated by Resident: Hayden Murphy the attending radiologist I was present in the room for the entirety ofthe procedure.I, Neris Grier MD., have reviewed this study and agree with the abovereport.[facility] AreaBODY FLUID CULTURE(AEROBIC/ANAEROBIC)2020-04-16 19:45:00 Test Item Value Reference Range Interpretation Comments BODY FLUID CULT 2+ Bacteroides fragillis (test code = 611-4) Gram stain (test Occasional (Rare) code = 664-3) Mononuclear cells [facility] AreaPROTHROMBIN TIME / [id number] 16:38:00 Test Item Value Reference Range Interpretation Comments PROTIME PATIENT (test See_Comment H [Auto mated message] code = 5964-2) The system [employer] generated this result transmitted ref erence range: 10.1 - 1 2.6 Seconds. The reference range was not used to int erpret this result as normal/abnormal . INR (test code = 6301-6) Nor mal INR <1.1; Warfarin Therap eutic range 2.0 to 3. 0 or 2.5 to 3.5, dep ending upon the indica tions. Lab Interpretation (test Abnormal code = 17631-4) [facility] AreaCT ABDOMEN PELVIS W [id number] 13:40:08Impression: 1. ?Interval placement of 4 percutaneous [...] degenerative changes and no suspicious focal lesions. [facility], Radiant Results Inft User - 04/16/2020 [...] and oral contrast seen up to the ostomy.[facility] METABOLIC PANEL (NA, K, CL, CO2, GLUCOSE, BUN, CREATININE, CA)2020-04-16 10:51:00 Test Item Value Reference Range Interpretation Comments NA (test code = 132 mmol/L 135-145 L 1234126091) K (test code = 4.1 mmol/L 3.5-5 4959340744) CL (test code = 103 mmol/L 98-108 0803221484) CO2 TOTAL (test code = 24 mmol/L 23-31 0743549759) AGAP (test code = 2-16 2919480311) BUN (test code = 13 mg/dL 7-23 5524063851) GLUCOSE (test code = 132 mg/dL 70-110 H 2552136133) CREATININE (test code = 0.77 mg/dL 0.6-1.25 9992486689) CALCIUM (test code = 7.4 mg/dL 8.6-10.6 L 9414350453) eGFR Calculation mL/min/1.73m2 (Non-) (test code = 9420792606) eGFR Calculation mL/min/1.73m2 () (test code = 5405510355) GILBERTO (test code = GILBERTO) Association of [...] tests). Lab Interpretation Abnormal (test code = 79566-3) [facility]MAGNESIUM2020-08-24 10:51:00 Test Item Value Reference Range Interpretation Comments MAGNESIUM (test code = 4153412981) 2.2 mg/dL 1.7-2.4 Lab Interpretation (test code = Normal 45118-6) [facility]2020-08-24 10:51:00 Test Item Value Reference Range Interpretation Comments PHOSPHORUS (test code = 8116576856) 3.1 mg/dL 2.5-5 Lab Interpretation (test code = Normal 70683-4) [facility] AreaCB WITH [id number] 10:37:00 Test Item Value Reference Range Interpretation Comments WBC (test code = See_Comment H [Automated 6690-2) message] The system which generated this result transmit dain reference range : 4.20 - 10.70 10*3/?L. The reference range was not used to interpret this result as normal/abnormal . RBC (test code = See_Comment L [Automated 789-8) message] The system which generated this result transmit dani reference range : 4.26 - 5.52 10*6/?L. [...] RDW-SD (test code = 47.4 fL 38.5-51.6 71353-6) RDW-CV (test code = 14.7 % 12.1-15.4 788-0) PLT (test code = See_Comment H [Automated 777-3) message] The system which generated this result transmit dain reference range : 150 - 328 10*3/ ?L. The reference range was not u sed to interpret th is result as normal/abnormal . MPV (test code = 10.1 fL 9.8-13 03996-9) NRBC/100 WBC (test See_Comment [Automat ed code = 4999652981) message] The system which generated this result transmit dain reference range : 0.0 - 10.0 /100 WBCs. The reference range was not used to interpret this result as normal/abnormal . NRBC x10^3 (test code <0.01 See_Comment [Auto mated = 7935309983) message] The system which generated this result transmit dain reference range : 10*3/?L. The reference range was not used to interpret this result as normal/abnormal . GRAN MAT (NEUT) % 83.0 % (test code = 770-8) IMM GRAN % (test code 1.50 % = 2136898049) LYMPH % (test code = 7.6 % 736-9) MONO % (test code = 7.3 % 5905-5) EOS % (test code = 0.3 % 713-8) BASO % (test code = 0.3 % 706-2) GRAN MAT x10^3(ANC) 11.53 10*3/uL 1.99-6.95 H (test code = 5879760531) IMM GRAN x10^3 (test 0.21 10*3/uL 0-0.06 H code = 2270033279) LYMPH x10^3 (test code 1.05 10*3/uL 1.09-3.23 L = 731-0) MONO x10^3 (test code 1.01 10*3/uL 0.36-1.02 = 742-7) EOS x10^3 (test code = 0.04 10*3/uL 0.06-0.53 L 711-2) BASO x10^3 (test code 0.04 10*3/uL 0.01-0.09 = 704-7) Lab Interpretation Abnormal (test code = 64552-0) [facility] METABOLIC PANEL (NA, K, CL, CO2, GLUCOSE, BUN, CREATININE, CA)2020-04-15 11:01:00 Test Item Value Reference Range Interpretation Comments NA (test code = 132 mmol/L 135-145 L 2095588479) K (test code = 4.7 mmol/L 3.5-5 4388589840) CL (test code = 103 mmol/L 98-108 3750803098) CO2 TOTAL (test code = 22 mmol/L 23-31 L 4776689820) AGAP (test code = 2-16 8534873953) BUN (test code = 14 mg/dL 7-23 0555945297) GLUCOSE (test code = 114 mg/dL 70-110 H 7458692105) CREATININE (test code = 0.74 mg/dL 0.6-1.25 6781443584) CALCIUM (test code = 7.9 mg/dL 8.6-10.6 L 8481320646) eGFR Calculation mL/min/1.73m2 (Non-) (test code = 8051229416) eGFR Calculation mL/min/1.73m2 () (test code = 8369381088) GILBERTO (test code = GILBERTO) Association of [...] tests). Lab Interpretation Abnormal (test code = 53332-7) [facility]2020-08-23 11:01:00 Test Item Value Reference Range Interpretation Comments MAGNESIUM (test code = 2797510329) 2.1 mg/dL 1.7-2.4 Lab Interpretation (test code = Normal 95924-3) [facility]2020-08-23 11:01:00 Test Item Value Reference Range Interpretation Comments PHOSPHORUS (test code = 0670959035) 3.4 mg/dL 2.5-5 Lab Interpretation (test code = Normal 91799-3) [facility] WITH [id number] 10:46:00 Test Item Value Reference Range Interpretation Comments WBC (test code = See_Comment H [Automated 8090-2) message] The system which generated this result [...] RDW-SD (test code = 47.7 fL 38.5-51.6 72003-0) RDW-CV (test code = 15.0 % 12.1-15.4 788-0) PLT (test code = See_Comment H [Automated 777-3) message] The system which generated this result transmit dain reference range : 150 - 328 10*3/ ?L. The reference range was not u sed to interpret th is result as normal/abnormal . MPV (test code = 10.4 fL 9.8-13 26424-0) NRBC/100 WBC (test See_Comment [Automat ed code = 8711061576) message] The system which generated this result transmit dain reference range : 0.0 - 10.0 /100 WBCs. The reference range was not used to interpret this result as normal/abnormal . NRBC x10^3 (test code <0.01 See_Comment [Auto mated = 2198878753) message] The system which generated this result transmit dain reference range : 10*3/?L. The reference range was not used to interpret this result as normal/abnormal . GRAN MAT (NEUT) % 85.0 % (test code = 770-8) IMM GRAN % (test code 1.10 % = 4139313197) LYMPH % (test code = 7.2 % 736-9) MONO % (test code = 6.4 % 5905-5) EOS % (test code = 0.1 % 713-8) BASO % (test code = 0.2 % 706-2) GRAN MAT x10^3(ANC) 14.87 10*3/uL 1.99-6.95 H (test code = 4052320861) IMM GRAN x10^3 (test 0.20 10*3/uL 0-0.06 H code = 9134966559) LYMPH x10^3 (test code 1.25 10*3/uL 1.09-3.23 = 731-0) MONO x10^3 (test code 1.11 10*3/uL 0.36-1.02 H = 742-7) EOS x10^3 (test code = <0.03 0.06-0.53 L 711-2) BASO x10^3 (test code 0.03 10*3/uL 0.01-0.09 = 704-7) Lab Interpretation Abnormal (test code = 91969-3) [facility] METABOLIC PANEL (NA, K, CL, CO2, GLUCOSE, BUN, CREATININE, CA)2020-04-14 12:15:00 Test Item Value Reference Range Interpretation Comments NA (test code = 134 mmol/L 135-145 L 4035113378) K (test code = 4.9 mmol/L 3.5-5 0258256153) CL (test code = 105 mmol/L 98-108 1315913646) CO2 TOTAL (test code = 23 mmol/L 23-31 0281596207) AGAP (test code = 2-16 1931088033) BUN (test code = 16 mg/dL 7-23 2797273913) GLUCOSE (test code = 102 mg/dL 70-110 0844815607) CREATININE (test code = 0.82 mg/dL 0.6-1.25 9514390391) CALCIUM (test code = 7.9 mg/dL 8.6-10.6 L 7681394590) eGFR Calculation mL/min/1.73m2 (Non-) (test code = 7081700531) eGFR Calculation mL/min/1.73m2 () (test code = 4182915091) GILBERTO (test code = GILBERTO) Association of [...] tests). Lab Interpretation Abnormal (test code = 49742-9) [facility]2020-08-22 12:15:00 Test Item Value Reference Range Interpretation Comments MAGNESIUM (test code = 0913900576) 2.1 mg/dL 1.7-2.4 Lab Interpretation (test code = Normal 40975-9) [facility]2020-08-22 12:15:00 Test Item Value Reference Range Interpretation Comments PHOSPHORUS (test code = 7496996341) 4.2 mg/dL 2.5-5 Lab Interpretation (test code = Normal 84077-0) [facility] WITH [id number] 11:49:00 Test Item Value Reference Range Interpretation [...] RDW-SD (test code = 48.1 fL 38.5-51.6 83436-9) RDW-CV (test code = 15.1 % 12.1-15.4 788-0) PLT (test code = See_Comment H [Automated 777-3) message] The system which generated this result transmit dain reference range : 150 - 328 10*3/ ?L. The reference range was not u sed to interpret th is result as normal/abnormal . MPV (test code = 10.7 fL 9.8-13 35566-3) NRBC/100 WBC (test See_Comment [Automat ed code = 9374813079) message] The system which generated this result transmit dain reference range : 0.0 - 10.0 /100 WBCs. The reference range was not used to interpret this result as normal/abnormal . NRBC x10^3 (test code <0.01 See_Comment [Auto mated = 6565183906) message] The system which generated this result transmit dain reference range : 10*3/?L. The reference range was not used to interpret this result as normal/abnormal . GRAN MAT (NEUT) % 84.4 % (test code = 770-8) IMM GRAN % (test code 1.10 % = 4933836337) LYMPH % (test code = 7.4 % 736-9) MONO % (test code = 6.8 % 5905-5) EOS % (test code = 0.1 % 713-8) BASO % (test code = 0.2 % 706-2) GRAN MAT x10^3(ANC) 13.45 10*3/uL 1.99-6.95 H (test code = 9646677806) IMM GRAN x10^3 (test 0.18 10*3/uL 0-0.06 H code = 8551258141) LYMPH x10^3 (test code 1.18 10*3/uL 1.09-3.23 = 731-0) MONO x10^3 (test code 1.09 10*3/uL 0.36-1.02 H = 742-7) EOS x10^3 (test code = <0.03 0.06-0.53 L 711-2) BASO x10^3 (test code 0.03 10*3/uL 0.01-0.09 = 704-7) Lab Interpretation Abnormal (test code = 53785-9) [facility] TOTAL BODY [id number] 01:27:00 Test Item Value Reference Range Interpretation Comments LDH BF (test code = >6450 U/L 5692088128) UNSPUN BODY FLUID Yellow COLOR (test code = 9569130356) UNSPUN BODY FLUID Turbid CLARITY (test code = 0488514901) SPUN BODY FLUID Yellow COLOR (test code = 2287471758) SPUN BODY FLUID Clear CLARITY (test code = 2032823919) Sediment (test code The sediment volume is 0.1 = 5473699844) mLs of the total fluid volume of 5mLs and its color is Red/White. GILBERTO (test code = Test developed and GILBERTO) characteristics determined by [facility] Laboratory Services. [facility] METABOLIC PANEL (NA, K, CL, CO2, GLUCOSE, BUN, CREATININE, CA)2020-04-14 00:15:00 Test Item Value Reference Range Interpretation Comments NA (test code = 132 mmol/L 135-145 L 8365356674) K (test code = 5.3 mmol/L 3.5-5 H 7780591792) CL (test code = 105 mmol/L 98-108 2953558038) CO2 TOTAL (test code = 20 mmol/L 23-31 L 2951486671) AGAP (test code = 2-16 9944419316) BUN (test code = 14 mg/dL 7-23 9217981795) GLUCOSE (test code = 280 mg/dL 70-110 H 2314410212) CREATININE (test code = 0.75 mg/dL 0.6-1.25 5248339126) CALCIUM (test code = 7.4 mg/dL 8.6-10.6 L 6595521502) eGFR Calculation mL/min/1.73m2 (Non-) (test code = 8491387611) eGFR Calculation mL/min/1.73m2 () (test code = 1919634468) GILBERTO (test code = GILBERTO) Association of [...] tests). Lab Interpretation Abnormal (test code = 90627-7) [facility] WITHOUT [id number] 00:01:00 Test Item Value Reference Range Interpretation Comments WBC (test code = 6690-2) See_Comment H [A utomated message] The system [email or web address] generated this result transmit dain reference range : 4.20 - 10.70 10*3/?L. The reference range was not used to interpret this result as normal/abnormal . RBC (test code = 789-8) See_Comment L [Au tomated message] The system [email or web address] generated this result transmit dain reference range [...] See_Comment H [Au tomated message] The system [email or web address] generated this result transmit dain reference range : 150 - 328 10*3/?L. The reference range was not used to interpret this result as normal/abnormal . MPV (test code = 10.2 fL 9.8-13 32976-1) RDW-CV (test code = 15.3 % 12.1-15.4 788-0) RDW-SD (test code = 49.1 fL 38.5-51.6 51389-7) NRBC x10^3 (test code = <0.01 See_Comment [Au tomated message] 2256022937) The system [employer] generated this result transmit dain reference range : 10*3/?L. The reference range was not used to interpret this result as normal/abnormal . NRBC/100 WBC (test code See_Comment [Au tomated message] = 6682549604) The system [employer] generated this result transmit dain reference range : 0.0 - 10.0 /100 WBC s. The reference r meredith was not used to interpret this result as normal/abnormal . IPF % (test code = 5180008505) Lab Interpretation (test Abnormal code = 98565-0) [facility] Area[facility] DIRECT [id number] 23:40:00 Test Item Value Reference Range Interpretation Comments BF COLOR Yellow (test code = 3968950768) BF WBC Count See_Comment [Automated (test code = message] The sy stem 0766242860) which generated this result transmitted reference range : /?L. The refere nce range was not u sed to interpret th is result as normal/abnormal . BF RBC Count <3000 See_Comment [Automated (test code = message] The sy stem 9633501712) which generated this result transmitted reference range : /?L. The refere nce range was not u sed to interpret th is result as normal/abnormal . GILBERTO (test The reference range code = GILBERTO) and other method performance specifications have not been established for this body fluid. ?The test results must be integrated into the clinical context for interpretation. [facility] Area[facility] FLUID MANUAL [id number] 23:40:00 Test Item Value Reference Range Interpretation Comments BF SEGS (test code 99 % = 7978686842) BF LYMPHS (test 1 % code = 7335779166) #CELS CNTD (test code = 3830670354) GILBERTO (test code = Possible intracellular GILBERTO) bacteria. [facility] AreaGLUCOSE BODY [id number] 23:17:00 Test Item Value Reference Range Interpretation Comments GLUCOSE BF (test <20 mg/dL code = 7038470822) UNSPUN BODY FLUID Yellow COLOR (test code = 4125591335) UNSPUN BODY FLUID Turbid CLARITY (test code = 6872887955) SPUN BODY FLUID Yellow COLOR (test code = 6660900398) SPUN BODY FLUID Clear CLARITY (test code = 7836143094) Sediment (test code The sediment volume is 0.1 = 4620967089) mLs of the total fluid volume of 5mLs and its color is Red/White. GILBERTO (test code = Test developed and GILBERTO) characteristics determined by [facility] Laboratory Services. [facility] AreaT.PROTEIN BODY [id number] 22:52:00 Test Item Value Reference Range Interpretation Comments T.PROT BF (test 3000.0 mg/dL code = 8880504231) UNSPUN BODY FLUID Yellow COLOR (test code = [id number]) UNSPUN BODY FLUID Turbid CLARITY (test code = 1825348286) SPUN BODY FLUID Yellow COLOR (test code = 7072368599) SPUN BODY FLUID Clear CLARITY (test code = 3878296134) Sediment (test code The sediment volume is 0.1 = 5647785375) mLs of the total fluid volume of 5mLs and its color is Red/White. GILBERTO (test code = Test developed and GILBERTO) characteristics determined by [facility] Laboratory Services. [facility] [id number] 19:44:00 Test Item Value Reference Range Interpretation Comments URINE CULTURE (test No aerobic growth (< code = 630-4) 1000 CFU/mL) [facility] NEGATIVE BLOOD PATHOGENS DNA [id number] 13:23:00 Test Item Value Reference Range Interpretation Comments Enterobacter species Positive Negative A (test code = 81038-7) GILBERTO (test code = GILBERTO) See blood culture result for additional information. ?Testing included eight identification and six resistance marker targets. Lab Interpretation Abnormal (test code = 79013-3) [facility] [id number] 12:43:00 Test Item Value Reference Range Interpretation [...] RDW-SD (test code = 49.8 fL 38.5-51.6 16911-4) RDW-CV (test code = 15.3 % 12.1-15.4 788-0) PLT (test code = See_Comment H [Automated 777-3) message] The system which generated this result transmit dain reference range : 150 - 328 10*3/ ?L. The reference range was not u sed to interpret th is result as normal/abnormal . MPV (test code = 10.7 fL 9.8-13 76539-2) NRBC/100 WBC (test See_Comment [Automat ed code = 1810494015) message] The system which generated this result transmit dain reference range : 0.0 - 10.0 /100 WBCs. The reference range was not used to interpret this result as normal/abnormal . NRBC x10^3 (test code <0.01 See_Comment [Auto mated = 7055484757) message] The system which generated this result transmit dain reference range : 10*3/?L. The reference range was not used to interpret this result as normal/abnormal . GRAN MAT (NEUT) % 81.3 % (test code = 770-8) IMM GRAN % (test code 1.40 % = 9818353355) LYMPH % (test code = 8.0 % 736-9) MONO % (test code = 8.9 % 5905-5) EOS % (test code = 0.2 % 713-8) BASO % (test code = 0.2 % 706-2) GRAN MAT x10^3(ANC) 10.74 10*3/uL 1.99-6.95 H (test code = 0344299140) IMM GRAN x10^3 (test 0.18 10*3/uL 0-0.06 H code = 1371326784) LYMPH x10^3 (test code 1.06 10*3/uL 1.09-3.23 L = 731-0) MONO x10^3 (test code 1.17 10*3/uL 0.36-1.02 H = 742-7) EOS x10^3 (test code = <0.03 0.06-0.53 L 711-2) BASO x10^3 (test code <0.03 0.01-0.09 = 704-7) Lab Interpretation Abnormal (test code = 79086-3) [facility] METABOLIC PANEL (NA, K, CL, CO2, GLUCOSE, BUN, CREATININE, CA)2020-04-13 11:57:00 Test Item Value Reference Range Interpretation Comments NA (test code = 134 mmol/L 135-145 L 3660171518) K (test code = 4.6 mmol/L 3.5-5 3401740101) CL (test code = 106 mmol/L 98-108 9177216961) CO2 TOTAL (test code = 23 mmol/L 23-31 5915536408) AGAP (test code = 2-16 8473299460) BUN (test code = 14 mg/dL 7-23 7262926111) GLUCOSE (test code = 106 mg/dL 70-110 7277313881) CREATININE (test code = 0.84 mg/dL 0.6-1.25 8542100964) CALCIUM (test code = 7.7 mg/dL 8.6-10.6 L 0038433293) eGFR Calculation mL/min/1.73m2 (Non-) (test code = 9804025598) eGFR Calculation mL/min/1.73m2 () (test code = 0028085007) GILBERTO (test code = GILBERTO) Association of [...] tests). Lab Interpretation Abnormal (test code = 30844-5) [facility]2020-08-21 11:57:00 Test Item Value Reference Range Interpretation Comments MAGNESIUM (test code = 8119534816) 2.1 mg/dL 1.7-2.4 Lab Interpretation (test code = Normal 53476-0) [facility]2020-08-21 11:57:00 Test Item Value Reference Range Interpretation Comments PHOSPHORUS (test code = 3890045788) 3.4 mg/dL 2.5-5 Lab Interpretation (test code = Normal 77222-8) [facility] ABDOM[facility] PELVIS W [id number] 00:22:08 1. ?Multiple intraperitoneal collections as detailed [...] a seroma or an abscess.4. Ascites and pn eumoperitoneum.5. Hepatosplenomegaly.6. Partially visualized moderate bilateral pleural effusions.Critical FindingReported to and acknowledged by Dr. Pennington of General surgery and thecolorectal team@ 5:20 PM, 04/12/2020.Multiple intra- abdominal fluid collection, ascites and pneumoperitoneum Failed communication attempts 0Preliminary Report Dictated by Resident: Sierra Lamar, Mathieu Chapa MD., have reviewed this study and agree with the abovereport. [facility]2020-08-20 23:20:00 Test Item Value Reference Range Interpretation Comments APPEARANCE (test code = Clear Clear 3882015516) COLOR (test code = Yellow Yellow 5626659919) PH (test code = 4.8-8.0 5856933786) SP GRAVITY (test code = 1.003-1.030 4120058753) GLU U QUAL (test code = Normal Normal 0619965302) BLOOD (test code = Negative Negative 6412148308) KETONES (test code = Negative Negative 6098584584) PROTEIN (test code = 30 mg/dL Negative A 2887-8) UROBILIN (test code = Normal Normal 9361712119) BILIRUBIN (test code = Negative Negative 8399609012) NITRITE (test code = Negative Negative 2541268950) LEUK ROGER (test code = Negative Negative 2485384745) RBC/HPF (test code = See_Comment [Autom ated message] 9304329477) The system [email or web address] generated this result transmitted ref erence range: 0 - 3 HP F. The reference range was not used to int erpret this result as normal/abnormal . WBC/HPF (test code = <1 See_Comment [Autom ated message] 2127868454) The system [email or web address] generated this result transmitted ref erence range: 0 - 5 HP F. The reference range was not used to int erpret this result as normal/abnormal . BACTERIA (test code = Negative Negative 7855665435) MUCOUS (test code = Slight Negative LPF A 0922627676) SQ EPITH (test code = See_Comment [Auto mated message] 1758036192) The system [email or web address] generated this result transmitted ref erence range: <=2 HPF. The reference range was not used to int erpret this result as normal/abnormal . Lab Interpretation (test Abnormal code = 97124-9) [facility] WITH [id number] 12:08:00 Test Item Value Reference Range Interpretation [...] RDW-SD (test code = 48.9 fL 38.5-51.6 87704-7) RDW-CV (test code = 15.4 % 12.1-15.4 788-0) PLT (test code = See_Comment [Automated 777-3) message] The sy stem which generated this result transmitted reference range : 150 - 328 10*3/ ?L. The reference r meredith was not used to interpret this result as normal/abnormal . MPV (test code = 11.2 fL 9.8-13 47658-0) NRBC/100 WBC (test See_Comment [Automat ed code = 6100926964) message] The system which generated this result transmitted reference range : 0.0 - 10.0 /100 WBCs. The refer ence range was not u sed to interpret th is result as normal/abnormal . NRBC x10^3 (test code <0.01 See_Comment [Auto mated = 6561990409) message] The s ystem which generated this result transmitted reference range : 10*3/?L. The reference range was not used to interpret this result as normal/abnormal . GRAN MAT (NEUT) % 79.9 % (test code = 770-8) IMM GRAN % (test code 1.30 % = 6672742594) LYMPH % (test code = 7.4 % 736-9) MONO % (test code = 11.0 % 5905-5) EOS % (test code = 0.2 % 713-8) BASO % (test code = 0.2 % 706-2) GRAN MAT x10^3(ANC) 9.56 10*3/uL 1.99-6.95 H (test code = 8599934920) IMM GRAN x10^3 (test 0.15 10*3/uL 0-0.06 H code = 4522130485) LYMPH x10^3 (test code 0.89 10*3/uL 1.09-3.23 L = 731-0) MONO x10^3 (test code 1.32 10*3/uL 0.36-1.02 H = 742-7) EOS x10^3 (test code = <0.03 0.06-0.53 L 711-2) BASO x10^3 (test code <0.03 0.01-0.09 = 704-7) Lab Interpretation Abnormal (test code = 80477-0) [facility] METABOLIC PANEL (NA, K, CL, CO2, GLUCOSE, BUN, CREATININE, CA)2020-04-12 10:43:00 Test Item Value Reference Range Interpretation Comments NA (test code = 133 mmol/L 135-145 L 2204875122) K (test code = 4.3 mmol/L 3.5-5 5677894994) CL (test code = 104 mmol/L 98-108 6640694699) CO2 TOTAL (test code = 22 mmol/L 23-31 L 5818919840) AGAP (test code = 2-16 5378293494) BUN (test code = 20 mg/dL 7-23 1039988318) GLUCOSE (test code = 108 mg/dL 70-110 2113543053) CREATININE (test code = 0.77 mg/dL 0.6-1.25 3737651636) CALCIUM (test code = 8.1 mg/dL 8.6-10.6 L 8184323280) eGFR Calculation mL/min/1.73m2 (Non-) (test code = 6247481169) eGFR Calculation mL/min/1.73m2 () (test code = 7554898912) GILBERTO (test code = GILBERTO) Association of [...] tests). Lab Interpretation Abnormal (test code = 28115-0) [facility]2020-08-20 10:43:00 Test Item Value Reference Range Interpretation Comments MAGNESIUM (test code = 1799293320) 2.0 mg/dL 1.7-2.4 Lab Interpretation (test code = Normal 85039-5) [facility]2020-08-20 10:43:00 Test Item Value Reference Range Interpretation Comments PHOSPHORUS (test code = 5800056575) 4.3 mg/dL 2.5-5 Lab Interpretation (test code = Normal 88260-2) [facility] [id number] 04:01:00 Test Item Value Reference Range Interpretation Comments Blood Culture-Aerobic No organisms No growth Previo us (test code = 09803-1) isolated prelim inary verified result was Culture [...] Culture-Anaerobic isolated preliminar y (test code = 57003-1) verifi ed result was Culture In Progress [...] CDT Lab Interpretation Normal (test code = 98242-3) [facility] [id number] 04:01:00 Test Item Value Reference Range Interpretation Comments Blood Culture-Aerobic No organisms No growth Previo us (test code = 32708-9) isolated prelim inary verified result was Culture [...] Culture-Anaerobic isolated preliminar y (test code = 79973-3) verifi ed result was Culture In Progress [...] CDT Lab Interpretation Normal (test code = 03937-2) [facility] (NA, K, CL, CO2, GLUCOSE, BUN, CREATININE, CA)2020-04-11 10:13:00 Test Item Value Reference Range Interpretation Comments NA (test code = 138 mmol/L 135-145 1345967533) K (test code = 3.9 mmol/L 3.5-5 7667747021) CL (test code = 106 mmol/L 98-108 2961200325) CO2 TOTAL (test code = 27 mmol/L 23-31 0749444884) AGAP (test code = 2-16 9089353205) BUN (test code = 24 mg/dL 7-23 H 2101815763) GLUCOSE (test code = 97 mg/dL 70-110 3365541783) CREATININE (test code = 0.63 mg/dL 0.6-1.25 9669561327) CALCIUM (test code = 8.1 mg/dL 8.6-10.6 L 3352765914) eGFR Calculation mL/min/1.73m2 (Non-) (test code = 9654836313) eGFR Calculation mL/min/1.73m2 () (test code = 0012800462) GILBERTO (test code = GILBERTO) Association of [...] tests). Lab Interpretation Abnormal (test code = 29545-4) [facility]2020-08-19 10:13:00 Test Item Value Reference Range Interpretation Comments MAGNESIUM (test code = 3050361126) 1.8 mg/dL 1.7-2.4 Lab Interpretation (test code = Normal 68779-1) [facility]2020-08-19 10:13:00 Test Item Value Reference Range Interpretation Comments PHOSPHORUS (test code = 8719623246) 3.6 mg/dL 2.5-5 Lab Interpretation (test code = Normal 74644-8) [facility] WITH [id number] 10:06:00 Test Item Value Reference Range Interpretation Comments WBC (test code = See_Comment [Automated 3490-2) message] The sy stem which generated this [...] RDW-SD (test code = 48.9 fL 38.5-51.6 01584-1) RDW-CV (test code = 15.3 % 12.1-15.4 788-0) PLT (test code = See_Comment [Automated 777-3) message] The sy stem which generated this result transmitted reference range : 150 - 328 10*3/ ?L. The reference r meredith was not used to interpret this result as normal/abnormal . MPV (test code = 11.7 fL 9.8-13 27907-1) NRBC/100 WBC (test See_Comment [Automat ed code = 6457636289) message] The system which generated this result transmitted reference range : 0.0 - 10.0 /100 WBCs. The refer ence range was not u sed to interpret th is result as normal/abnormal . NRBC x10^3 (test code <0.01 See_Comment [Auto mated = 9930154626) message] The s ystem which generated this result transmitted reference range : 10*3/?L. The reference range was not used to interpret this result as normal/abnormal . GRAN MAT (NEUT) % 75.6 % (test code = 770-8) IMM GRAN % (test code 1.10 % = 0164437131) LYMPH % (test code = 10.5 % 736-9) MONO % (test code = 11.0 % 5905-5) EOS % (test code = 1.5 % 713-8) BASO % (test code = 0.3 % 706-2) GRAN MAT x10^3(ANC) 5.56 10*3/uL 1.99-6.95 (test code = 3834748772) IMM GRAN x10^3 (test 0.08 10*3/uL 0-0.06 H code = 7224808254) LYMPH x10^3 (test code 0.77 10*3/uL 1.09-3.23 L = 731-0) MONO x10^3 (test code 0.81 10*3/uL 0.36-1.02 = 742-7) EOS x10^3 (test code = 0.11 10*3/uL 0.06-0.53 711-2) BASO x10^3 (test code <0.03 0.01-0.09 = 704-7) TOXIC CHANGES (test Present A code = 803-7) Lab Interpretation Abnormal (test code = 69358-2) [facility] [id number] 22:00:00 Test Item Value Reference Range Interpretation Comments Case Report (test code Surgical Pathology ? ? = [id number]) ?Case: [id number] ? Authorizing Provider: ?Juventino Mccabe MD ? Collected: ? 04/06/2020 1012 ?Ordering Location: ? ? [facility] OR ? Received: ?04/06/2020 1146 ? Department ? Pathologist: ? Shaneka Douglas MD ? Specimen: ? ?SOFT TISSUE, OTHER, ileo rectal anastamosis ? Final Diagnosis (test t8gmvLGkIQDdo1loWLMqtD code = 4373496946) FuZzEwMzNcZnRuYmpcdWMx OYzjynPuUKuro5ZdP2SuZl AwMFxhbnNpXGRlZmxhbmcx EQIaFGE1pjWlKTBxRBdwJR HmCRotYd1duQGufSgzFtIh VEAlp9fuklCLybsqeUs0g7 nuPAPpPeR6dXNvVCdmH8mm dqLhuFJyHLZxKMj2eZ37BA FavT1xgAQxFErgdoHgWdH5 TCqxDCCfLuC9USEbpGTlPS QxK5sdUURiXXbrZARaCQrl mHSyQOS3pFsoy7A8qRTqoM OybZesHbTnRcMvFBZTm2Xk LAh8mPvtV3FyHFNmKrO3cB QgUGFyYWdyYXBoIEZvbnQ7 gU06ZGmzneD2nOXhp4Ovd5 5zv702sH0shTGfYIH4KGYe VLYerQJiFLKtJSJ7SDCadE VjL2jxLPecJF2pqbdxFVT5 MFxtYXJndDcyMFxtYXJnYj XzwETpNYXfvVvoZBxnh926 QYO4WtPtUY4cO8Amk7S9uP 9maXRcZGVmdGFiNzIwXGZv wg8drRYfYRygu5VaEQK8bg F4qYXrcBAdLDSvYK76Odzy z5UhYctyDAA4QSKcqeJsc7 Wtn7zzOgWqslCsX6xhQ6Cw ZHJoZWFkXHBnYnJkcmZvb3 Nyo6NugVMiuSq4k1xoNKDa CYFopJnjh9ocSPN2RZQvO8 G0qQWzi5sdFMfnRLBbwII3 unIpYIFtdNQgH2YxjD2uVK btIO9tvlw9b7dwJsWwWK2v rlrac9ieVRtsSULdLCQ8Ie HfHFRdh4WprpjcWpSvp1An rIBjEEdeF17la534PPSumg JpE2tmcKFtyyzduYThygkj CYoicgF0RQPsLKRyNUjvSE YxXGZzMjBcbGFuZzEwMzNc aGljaFxmMVxkYmNoXGYxXG rnL1yzQjCcWlQjUWoeCUXe VU1sC99KV57rYNjVTZ6hTw SYJUZRSCGZANWSJ15ON4uU THSGJISkSWANR16ZJjLBMN IQQBIBV8FND210RNFmabIa FIMtJG7cQgTHEEZUEJZCUB NFDGHTUROLZWTVSYGqM5mC MPNYEfEWO33NLsFDRLnYMf gLXS3DOBzMDtfkPBvWAFOC BDmURimvM0DLK5DJGQiULQ FORFxwYXIgICAgICAgICBQ YDFNLB9EETKLT5vcRTHnDH QnWSAyVBLIX1XCVUeYBiMF GLGLCQ7GFDHFCDOEQJLPUU VccGFyXHBhclxwbGFpblxm MVxmczIyXGxhbmcxMDMzXG xmK2ofNkNkUHLrzPnlHJxd q8UfGTCcEGHsYxwfsjVlET PvV0iziCkiESmnBFA2ML5c OJ8ZQ5yOQJZ6SsC1VcNyTe MoVUQ8HwYpEQ9ytXwdrK3e MwNfWcKvRZijYI2oRAOgQ1 ttvDCxAMMkZQZpX2apUnMa yV8sjBvjJScwrwVcGLSpxF HbKTMjap25UXZ7UdHhh0Q6 ZJCsIfMiJLPlST3ioVapXF XwLG8pLWVfQ1shmC7htdv9 ViNpBTFoOxZ2SYAiogI4It h3IJGuUQvox7hnu7MzO9Sa uRHssNi3n1wsOKEnLkA3qB GyWWgjQ4dpxwLekOOrMRUr JEh4yBkrPaCpUERvu1vyex BcZmNoYXJzZXQwIENhbGli txb1hX69BFHiiB5htVFcWF fzxlJxRfJ1TEbmLROwGeY9 UKYmpCDvCSLsB4noNUFzUJ xjBKZfEKxckHEaLYN9lUfa k6N3pBOtoZVlhXzkMwWvLe GnNVEPj5VhGIf8zXngB5Pe TBOtZlU6qYFqCRSsGYjbAP OpNGDxhmB8oW53KDqbllI0 fIJfl3Ctc42rx533kH7fiT PhTVZ1ZXXwWIRkaOGiAUAi ZEL7GKMwkUXzB2gzIIYjKM 2ycovhHZykHFywECWavUW5 RFMcyYVxE6TpNSRsVDmjEZ Lhcqo4KyFeMd7wmYRjsFgf XTita8yrj2inpUGaSdg0KR OmUmAxExdsLCcqg8Kjg2zy GJRrmq9nEMJ0uYOrmFftc0 K3dXReMYUbpZFueqGzSWIe OdB3FGqxID8yoy81ZRJqQL Z1gm7baZJamGgrslXfnWTy HMsfN2TcCBOio127CFMcP0 HzWOKte3F4lmYdGjEsHAZq lCF2lqM5GKJjABv1vDVoir S6jsWnrHWlH0pteJ6tSTUb PU2eiaebz2ijTIgoWVrzTQ AvdEC2wdH7BNMqxAPpM3Rg rG4mHOWjPWyjUMKbslq7Kd LaKx7hkPFvgOsfBQpyLisa YWdlXHBnbmNvbnRccGduZG VjXHBsYWluXHBsYWluXGYw ZONfFgPjhJiiyNdfeU5vDn MqLhHvXRsdPT8aOAVuI1xb vUFpKEGzQQOwA7xwTdHdqV 9jaFxmMVxjZjJcZnMyMFxw YXIgSSBoYXZlIHBlcnNvbm MyfJzhrdK3eZY0SBLxFDnw BQWeNPYsjLFdvh0ifSjyIJ LsXO4lLWQfvqMaLWfmeLdj UIzoNFZ0ARDzpTGopOXfsP FkZSBieSByZXNpZGVudHMs TJVodYgvx0Elx2QmqJU1bO 8xu4bye6HeRBFweEB4HG78 vjT1bT0qWOFsNM3eBNVqNI 9kbBVkfYLxLDCol31jkTwd cyByZXBvcnQuXHBsYWluXG YyXGZzMjhcbGFuZzEwMzNc aGljaFxmMlxkYmNoXGYyXG olE0zyByUnZhZgTVvsHHG8 fQ== Clinical Information Abdominal distention (test code = [R14.0] 5469677821) Gross Description (test i5zsoNSsKIXghFCuXaYnJB code = 0270928511) TqOARbb0cvXRIvfVQhSvOw MzNcZnRuYmpcdWMxXGRlZm Emw9qqq245dDNqw2pqDZPk MyO8wFNcEDIdpBQiR329JX LgJYnyu6zsi1HmSMDnsFXl x9B3NZVBcilbaSt1gSjwP8 6kq9M1GjcsW7bpAXWtMHnd XIZmZEwzeABoNLQ4ZWZvLD I8UYgeidTpokT0THtzjXSt ImS6LGc1t7nmoBypVBMeLF D0n5jdMAeazkGkFT8dwf4j hYx9u4qaenMaBWIcKYOyrX TNHSXyQ0JaqUwwNz9bvRh8 dClgBhjgUHJ1Zvp2WE6mej 31jtj5iAtkYYEfezhcMmP5 PCcwCAPfhplkASp6XUkdFD XgkWWvMMNcwIEuL8DmLYef SL3ncvc1XtKqPX5cgxmpQI twOWYnQII1HiIoKFHws4Cr yqolDmAsjy7zmx86YAU1b8 VxfLacDVE7CBK3YmTyMd3c iTGaSGQfRZ5wAuJpiQWlCS Jgta46dDgkQNablfIqbH7g IlKmGGUpxWZuGTZvOO2gdT YdBXRjtU5dnhwnTDClVqCe nhcrVZOisWjvocHrJx4qeA paGZA1ZQacY6znsC6nYlQ4 UKcuP3fyfE2uZHq9FEcwlB A0HMNmmK2qBB9rzxobe3fc UUE0WVapDKPtvoD5hqPlRC VxuOGiJ3PjoR75CfLwaRGe W3FnkD9yLEgtVQRghew8Ho TmCw6siJAsvEK2BIlxQkyg YWdlXHBnbmNvbnRccGduZG VjXHBsYWluXHBsYWluXGYw WBAhBfHigWddyYazlZ2jJh BcZnMyMFxwbGFpblxmMFxm czIwIFNwZWNpbWVuIEEgcm UdOGn9OLTjLyImz0hajMOa NVmeROT9rFAwHGFcXABdNL DaRM10R7RiiwSgOYpyVSxi bdZzYdQtMWXez60rsWG1vR EpaDXkPLnkPYGePKUqF0Rm kTPlgdIfhS4bw8BmotYjVS 8oNZSwuoWee4ZuFA6nSFKo a8AksQEoeDQaUBKsj2XiuZ marwJkTyLjdC7tQHVomxDo k2vynIAaQS55FUKdVQsiXD svytx8pCShyvPcudNqC5ne MwAjcv7xTIEaRTyneINsxc kvFRmkagWoBQB7GhHhPGjo EVYuzBewcF4hOfHmLvPvYL A3QxZfA87kWBnsaET4GXEf RBOyxnAkw8TceoGjd3j4fI YvjOAeLEHlJ8PzmLSyklCk sB8ky4Qilf6yPNBPhVDfn6 Euh1FmpEKgJIYvb2EheYll rlBrLR4aMLxzGY6cGVBgCM ybrYLrln41MRWbTCVxqPgx NTDsHGQ3f82xm3enYBKgwO JsVV6xNIR1lYQctnMtvRW3 vFNpGlJwOCyvcHD6JABxHJ xuDMOXeVChmTUmOo4bMYYt n85ejOWgaT3sSQWrDUXzBp KzJ66pRsJplJH5uVCpaZol VIbaaTPhV9mwRNBdFSNqQx IrNrShtWH1hSByzuGdxNOr VE1pxsxury8cYGunWJL1ve jpR4HqOD7qoogtwxNqYYWx MH4eCW9tVHEfjiVhwKmoUV QhJABlrKSqVIxsILcsP5zr LVNdxkQ5YUFtaP3lNGQtpO GfXs3yASIag54df1q2VIV1 xLKajG6qyWdtHMEwBMQ2t1 5zk3nxSAD3MCLrZPAlcZ4i CbJnNsPkTDoyCLQcEX2cXT PePVXgcGKoz2PpiORqsG7q SJSozgCmzfPvPFGkoDQ7x0 FeKBAlaKKim4RzODU5aKHm UUMlugNuPJKgDTTuBP2mlI RxOZUtaMFav6VpfSN3wUVf RKSkD4Mxh63sAZNoSTHjwZ PqhFA8KLUjULAaDJFliQrs eQ2fIgUiWwHlSAo0XJGvXF KgVwe9DWChNQsgMCZgMMYj MjAgQTQuXHBhclxwYXIgU2 OazHgufgYox3SeScuyHVTn XRW8EEKNZDT9WHrte8ZtU6 ffDSccyNPgC0apTIKbETBk IZQpjiLiaMc5YWxnVEEbJJ B2HQSZgUKweNZxaYCpiYKy oYAvMEXduF2yNAAfzCYfb4 EdiLK4lBToYAMqtvZKQrbe WRAxpyQurxH9wK9pKHMgdL HaiQTlVSV5IzCaZZ3tanRl mPUkEVKxTJR8sG6rPW0xTI ZdLQnqCGOjo6JcFMYkENFs CZWjitYrzMz1IElpUZWvjZ DjXQKixaIzxDmchT3xCeYn ZnMyMFxwbGFpblxmMVxmcz AxJFVnaUitZQXbmKApEQ5C ZPhMZSGmw6mcE3ozrRPMn8 Srr1XmlfRiNNJcWKjsJSCp XGZzMjBccGFyXHFsXHBsYW paWBWzRMLkVaNanOpznK7o ZjBcZnMyMFxwYXJccGFyfQ == Embedded Images (test code = 6411333590) [facility] WITH [id number] 11:29:00 Test Item Value Reference Range Interpretation [...] RDW-SD (test code = 48.8 fL 38.5-51.6 17694-3) RDW-CV (test code = 15.2 % 12.1-15.4 788-0) PLT (test code = See_Comment L [Automated 777-3) message] The sy stem which generated this result transmitted reference range : 150 - 328 10*3/ ?L. The reference r meredith was not used to interpret this result as normal/abnormal . MPV (test code = 11.6 fL 9.8-13 11706-7) NRBC/100 WBC (test See_Comment [Automat ed code = 1698440716) message] The system which generated this result transmitted reference range : 0.0 - 10.0 /100 WBCs. The refer ence range was not u sed to interpret th is result as normal/abnormal . NRBC x10^3 (test code <0.01 See_Comment [Auto mated = 6618527984) message] The s ystem which generated this result transmitted reference range : 10*3/?L. The reference range was not used to interpret this result as normal/abnormal . GRAN MAT (NEUT) % 79.1 % (test code = 770-8) IMM GRAN % (test code 0.50 % = 9779617934) LYMPH % (test code = 11.0 % 736-9) MONO % (test code = 7.8 % 5905-5) EOS % (test code = 1.4 % 713-8) BASO % (test code = 0.2 % 706-2) GRAN MAT x10^3(ANC) 4.67 10*3/uL 1.99-6.95 (test code = 4004125414) IMM GRAN x10^3 (test 0.03 10*3/uL 0-0.06 code = 9975184821) LYMPH x10^3 (test code 0.65 10*3/uL 1.09-3.23 L = 731-0) MONO x10^3 (test code 0.46 10*3/uL 0.36-1.02 = 742-7) EOS x10^3 (test code = 0.08 10*3/uL 0.06-0.53 711-2) BASO x10^3 (test code <0.03 0.01-0.09 = 704-7) Lab Interpretation Abnormal (test code = 10976-9) [facility] Test Item Value Reference Range Interpretation Comments MAGNESIUM (test code = 2207233991) 1.7 mg/dL 1.7-2.4 Lab Interpretation (test code = Normal 48052-8) [facility] 11:19[facility]00 Test Item Value Reference Range Interpretation Comments PHOSPHORUS (test code = 6801090648) 3.0 mg/dL 2.5-5 Lab Interpretation (test code = Normal 93986-5) [facility] [id number] 13:59:01 Interval extubation and removal of enteric [...] agree with theabove report.[facility]76348[facility] (ALB,T.PRO,BILI T,BU/BC,ALT,AST,ALK PHOS) 2020-04-09 11:52:00 Test Item Value Reference Range Interpretation Comments TOTAL BILI (test code = 9621403718) 1.2 mg/dL 0.1-1.1 H BILI UNCON (test code = 0984059369) 0.8 mg/dL 0.1-1.1 BILI CONJ (test code = 7947566291) 0.0 mg/dL 0-0.3 T PROTEIN (test code = 3895298692) 4.2 g/dL 6.3-8.2 L ALBUMIN (test code = 4129319855) 2.2 g/dL 3.5-5 L ALK PHOS (test code = 1609680932) 36 U/L 34-122 ALTv (test code = 1742-6) 13 U/L 5-50 AST(SGOT) (test code = 9705651264) 23 U/L 13-40 Lab Interpretation (test code = Abnormal 64641-9) [facility] WITH [id number] 10:01:00 Test Item Value Reference Range Interpretation [...] RDW-SD (test code = 47.6 fL 38.5-51.6 61533-9) RDW-CV (test code = 14.8 % 12.1-15.4 788-0) PLT (test code = See_Comment L [Automated 777-3) message] The sy stem which generated this result transmitted reference range : 150 - 328 10*3/ ?L. The reference r meredith was not used to interpret this result as normal/abnormal . MPV (test code = 11.6 fL 9.8-13 08111-0) NRBC/100 WBC (test See_Comment [Automat ed code = 2056804292) message] The system which generated this result transmitted reference range : 0.0 - 10.0 /100 WBCs. The refer ence range was not u sed to interpret th is result as normal/abnormal . NRBC x10^3 (test code <0.01 See_Comment [Auto mated = 7068583915) message] The s ystem which generated this result transmitted reference range : 10*3/?L. The reference range was not used to interpret this result as normal/abnormal . GRAN MAT (NEUT) % 87.5 % (test code = 770-8) IMM GRAN % (test code 0.90 % = 9181778407) LYMPH % (test code = 7.5 % 736-9) MONO % (test code = 3.4 % 5905-5) EOS % (test code = 0.5 % 713-8) BASO % (test code = 0.2 % 706-2) GRAN MAT x10^3(ANC) 5.12 10*3/uL 1.99-6.95 (test code = 3293225140) IMM GRAN x10^3 (test 0.05 10*3/uL 0-0.06 code = 7778985371) LYMPH x10^3 (test code 0.44 10*3/uL 1.09-3.23 L = 731-0) MONO x10^3 (test code 0.20 10*3/uL 0.36-1.02 L = 742-7) EOS x10^3 (test code = 0.03 10*3/uL 0.06-0.53 L 711-2) BASO x10^3 (test code <0.03 0.01-0.09 = 704-7) DOHLE BODIES (test Present A code = 7792-5) TOXIC CHANGES (test Present A code = 803-7) Lab Interpretation Abnormal (test code = 46008-1) [facility] METABOLIC PANEL (NA, K, CL, CO2, GLUCOSE, BUN, CREATININE, CA)2020-04-09 09:37:00 Test Item Value Reference Range Interpretation Comments NA (test code = 135 mmol/L 135-145 6779539800) K (test code = 3.6 mmol/L 3.5-5 4296545500) CL (test code = 105 mmol/L 98-108 0821730477) CO2 TOTAL (test code = 31 mmol/L 23-31 3310703568) AGAP (test code = <1 2-16 L 4207482685) BUN (test code = 28 mg/dL 7-23 H 0753168776) GLUCOSE (test code = 95 mg/dL 70-110 8363055756) CREATININE (test code = 0.78 mg/dL 0.6-1.25 1287070416) CALCIUM (test code = 8.1 mg/dL 8.6-10.6 L 8069947314) eGFR Calculation mL/min/1.73m2 (Non-) (test code = 8878170914) eGFR Calculation mL/min/1.73m2 () (test code = 1797669487) GILBERTO (test code = GILBERTO) Association of [...] tests). Lab Interpretation Abnormal (test code = 43516-1) [facility]00 Test Item Value Reference Range Interpretation Comments MAGNESIUM (test code = 9648166707) 1.8 mg/dL 1.7-2.4 Lab Interpretation (test code = Normal 07343-7) [facility] 09[facility]36:00 Test Item Value Reference Range Interpretation Comments PHOSPHORUS (test code = 9023113420) 1.8 mg/dL 2.5-5 L Lab Interpretation (test code = Abnormal 51467-2) [facility] LACTIC [id number] 21:18:00 Test Item Value Reference Range Interpretation Comments PH (test code = 2) 7.35-7.45 PCO2 (test code = See_Comment [Automate d 9622405735) message] The sy stem which generated this result transmitted reference range : 35 - 45 mmHg. The reference range was not used to interpret this result as normal/abnormal . PO2 (test code = See_Comment L [Automated 6947831850) message] The sy stem which generated this result transmitted reference range : 80 - 100 mmHg. The reference range was not used to interpret this result as normal/abnormal . HCO3 (test code = See_Comment [Automate d 3067929347) message] The sy stem which generated this result transmitted reference range : 22 - 26 mEq/L. The reference range was not used to interpret this result as normal/abnormal . BE (test code = See_Comment [Automated 5969030335) message] The sy stem which generated this result transmitted reference range : -3.0 - 3.0 mEq/ L. The reference r meredith was not used to interpret this result as normal/abnormal . THB (test code = 9.2 g/dL 13.5-18 L 7762935305) %O2HB (test code = 94.3 % 94-99 5025134332) %COHB ART (test code = 0.7 % 0-1.5 5319330397) %METHB ART (test code = 0.3 % 0.4-1.5 L 5829054843) VOL%O2 ART (test code = 12.3 % 15-23 L 4194410773) NA (test code = 135 mmol/L 135-145 6653999407) K+ (test code = 3.7 mmol/L 3.5-5 4130137858) AC CA IONZ (test code = 4.90 mg/dL 4.5-5.3 3862155856) GLUCOSE (test code = 94 mg/dL 70-110 3290831357) LACTIC ACID (test code 1.35 mmol/L = 2188593521) Lab Interpretation Abnormal (test code = 43875-0) [facility] GLUCOSE (AUTOMATED)2020-04-08 16:33:00 Test Item Value Reference Range Interpretation Comments POCT GLU (test code = 6798263086) 109 mg/dL 70-110 Lab Interpretation (test code = Normal 15768-1) [facility] GLUCOSE (AUTOMATED)2020-04-08 16:33:00 Test Item Value Reference Range Interpretation Comments POCT GLU (test code = 1419873423) 120 mg/dL 70-110 H Lab Interpretation (test code = Abnormal 31519-2) [facility] GLUCOSE (AUTOMATED)2020-04-08 16:33:00 Test Item Value Reference Range Interpretation Comments POCT GLU (test code = 1875517702) 93 mg/dL 70-110 Lab Interpretation (test code = Normal 70980-6) [facility] GLUCOSE (AUTOMATED)2020-04-08 12:46:00 Test Item Value Reference Range Interpretation Comments POCT GLU (test code = 4242808797) 109 mg/dL 70-110 Lab Interpretation (test code = Normal 40062-6) [facility] WITH [id number] 10:21:00 Test Item Value Reference Range Interpretation [...] RDW-SD (test code = 48.4 fL 38.5-51.6 50358-5) RDW-CV (test code = 15.0 % 12.1-15.4 788-0) PLT (test code = See_Comment L [Automated 777-3) message] The system which generated this result transmitted reference range : 150 - 328 10*3/?L. The reference range was not used to interpret this result as normal/abnormal . MPV (test code = 11.4 fL 9.8-13 82168-1) NRBC/100 WBC (test See_Comment [Automat ed code = 5308118898) message] The system which generated this result transmitted reference range : 0.0 - 10.0 /100 WBCs. The reference range was not used to interpret this result as normal/abnormal . NRBC x10^3 (test code <0.01 See_Comment [Auto mated = 3417818259) message] The system which generated this result transmitted reference range : 10*3/?L. The reference range was not used to interpret this result as normal/abnormal . GRAN MAT (NEUT) % 84.9 % (test code = 770-8) IMM GRAN % (test code 0.80 % = 5503243875) LYMPH % (test code = 7.9 % 736-9) MONO % (test code = 5.3 % 5905-5) EOS % (test code = 0.3 % 713-8) BASO % (test code = 0.8 % 706-2) GRAN MAT x10^3(ANC) 3.34 10*3/uL 1.99-6.95 (test code = 8871207684) IMM GRAN x10^3 (test 0.03 10*3/uL 0-0.06 code = 0632204464) LYMPH x10^3 (test 0.31 10*3/uL 1.09-3.23 L code = 731-0) MONO x10^3 (test code 0.21 10*3/uL 0.36-1.02 L = 742-7) EOS x10^3 (test code <0.03 0.06-0.53 L = 711-2) BASO x10^3 (test code 0.03 10*3/uL 0.01-0.09 = 704-7) GOLDEN CELLS (test code 2+ See_Comment A [Auto mated = 3904-9) message] The system which generated this result transmitted reference range : (none). The reference range was not used to interpret this result as normal/abnormal . BANDS (test code = MARKED INCREASED A 2892033207) DOHLE BODIES (test Present A code = 8392-5) TOXIC CHANGES (test Present A code = 803-7) Lab Interpretation Abnormal (test code = 06614-5) [facility] (NA, K, CL, CO2, GLUCOSE, BUN, CREATININE, CA)2020-04-08 10:02:00 Test Item Value Reference Range Interpretation Comments NA (test code = 138 mmol/L 135-145 6097901675) K (test code = 4.1 mmol/L 3.5-5 9415715850) CL (test code = 109 mmol/L 98-108 H 0429036635) CO2 TOTAL (test code = 25 mmol/L 23-31 3635186771) AGAP (test code = 2-16 9141824785) BUN (test code = 26 mg/dL 7-23 H 6388670414) GLUCOSE (test code = 103 mg/dL 70-110 2327346544) CREATININE (test code = 0.90 mg/dL 0.6-1.25 4762395497) CALCIUM (test code = 8.4 mg/dL 8.6-10.6 L 0446923944) eGFR Calculation mL/min/1.73m2 (Non-) (test code = 5660618636) eGFR Calculation mL/min/1.73m2 () (test code = 7704849848) GILBERTO (test code = GILBERTO) Association of [...] tests). Lab Interpretation Abnormal (test code = 30591-5) [facility] 10:02:00 Test Item Value Reference Range Interpretation Comments MAGNESIUM (test code = 1969076788) 2.6 mg/dL 1.7-2.4 H Lab Interpretation (test code = Abnormal 75370-0) [facility] + LACTIC [id number] 09:43:00 Test Item Value Reference Range Interpretation Comments PH (test code = 7.32-7.42 7144557502) PCO2 PANKAJ (test code = See_Comment [Auto mated 4393064415) message] The sy stem which generated this result transmitted reference range : 41 - 51 mmHg. The reference range was not used to interpret this result as normal/abnormal . PO2 PANKAJ (test code = See_Comment [Autom ated 9347363734) message] The sy stem which generated this result transmitted reference range : 25 - 40 mmHg. The reference range was not used to interpret this result as normal/abnormal . HCO3 PANKAJ (test code = See_Comment [Auto mated 7179801391) message] The sy stem which generated this result transmitted reference range : 24 - 28 mEq/L. The reference range was not used to interpret this result as normal/abnormal . AC VBE(BEAKER) (test mEq/L code = 9581835548) THB PANKAJ (test code = 11.4 g/dL 13.5-18 L 5520503091) %O2HB PANKAJ (test code = 64.9 % 52-63 H 6725924918) %COHB PANKAJ (test code = 1.0 % 0-1.5 0862160056) %METHB PANKAJ (test code = 0.3 % 0.4-1.5 L 2536375726) VOL%O2 PANKAJ (test code = 10.4 % 6-12 3654058691) NA (test code = 138 mmol/L 135-145 5734396699) K+ (test code = 4.1 mmol/L 3.5-5 3256585574) AC CA IONZ (test code = 4.90 mg/dL 4.5-5.3 6818070634) GLUCOSE (test code = 98 mg/dL 70-110 1749750180) LACTIC ACID (test code 1.90 mmol/L = 0788451493) Lab Interpretation Abnormal (test code = 06959-4) [facility]2020-04-08 04:25:00 Test Item Value Reference Range Interpretation Comments POCT GLU (test code = 6190346263) 106 mg/dL 70-110 Lab Interpretation (test code = Normal 84544-6) [facility]ST 1 [id number] 22:55:21Impression: Stable findings with no new changes.Exam: [...] with no new changes.[facility] MRSA / MSSA Screen by Estefanía [id number] 19:28:00 Test Item Value Reference Range Interpretation Comments MSSA Screen by Estefanía VIEIRA (test code Negative Negative = 12999-4) MRSA/MSSA Positive? (test code = No No 7400298337) Lab Interpretation (test code = Normal 00133-8) [facility]2020-04-07 17:01:00 Test Item Value Reference Range Interpretation Comments POCT GLU (test code = 3885550239) 95 mg/dL 70-110 Lab Interpretation (test code = Normal 12229-6) [facility] + LACTIC [id number] 14:15:00 Test Item Value Reference Range Interpretation Comments PH (test code = 2) 7.35-7.45 L PCO2 (test code = See_Comment [Automate d 7731416241) message] The sy stem which generated this result transmitted reference range : 35 - 45 mmHg. The reference range was not used to interpret this result as normal/abnormal . PO2 (test code = See_Comment H [Automated 1381925500) message] The sy stem which generated this result transmitted reference range : 80 - 100 mmHg. The reference range was not used to interpret this result as normal/abnormal . HCO3 (test code = See_Comment L [Automate d 7636334069) message] The sy stem which generated this result transmitted reference range : 22 - 26 mEq/L. The reference range was not used to interpret this result as normal/abnormal . BE (test code = See_Comment L [Automated 7259201886) message] The sy stem which generated this result transmitted reference range : -3.0 - 3.0 mEq/ L. The reference r meredith was not used to interpret this result as normal/abnormal . THB (test code = 9.6 g/dL 13.5-18 L 7980076405) %O2HB (test code = 98.6 % 94-99 8887481975) %COHB ART (test code = 0.3 % 0-1.5 7027011781) %METHB ART (test code = 0.0 % 0.4-1.5 L 0050590738) VOL%O2 ART (test code = NA 8346778600) NA (test code = 131 mmol/L 135-145 L 9118559213) K+ (test code = 4.3 mmol/L 3.5-5 9706220675) AC CA IONZ (test code = 4.60 mg/dL 4.5-5.3 9386072622) GLUCOSE (test code = 147 mg/dL 70-110 H 0158741538) LACTIC ACID (test code 3.12 mmol/L 0.5-2.2 H = 2113597747) Lab Interpretation Abnormal (test code = 41127-8) [facility] Whole [id number] 14:00:00 Test Item Value Reference Range Interpretation Comments LACTIC ACID (test code = 3.12 mmol/L 4395762802) [facility]2020-04-07 12:53:00 Test Item Value Reference Range Interpretation Comments POCT GLU (test code = 5665627615) 140 mg/dL 70-110 H Lab Interpretation (test code = Abnormal 40379-3) [facility] + LACTIC [id number] 12:01:00 Test Item Value Reference Range Interpretation Comments PH (test code = 2) 7.35-7.45 L PCO2 (test code = See_Comment L [Automate d 8812444005) message] The sy stem which generated this result transmitted reference range : 35 - 45 mmHg. The reference range was not used to interpret this result as normal/abnormal . PO2 (test code = See_Comment H [Automated 6880003119) message] The sy stem which generated this result transmitted reference range : 80 - 100 mmHg. The reference range was not used to interpret this result as normal/abnormal . HCO3 (test code = See_Comment L [Automate d 2943898106) message] The sy stem which generated this result transmitted reference range : 22 - 26 mEq/L. The reference range was not used to interpret this result as normal/abnormal . BE (test code = See_Comment L [Automated 5595504757) message] The sy stem which generated this result transmitted reference range : -3.0 - 3.0 mEq/ L. The reference r meredith was not used to interpret this result as normal/abnormal . THB (test code = 10.8 g/dL 13.5-18 L 0517864608) %O2HB (test code = 98.8 % 94-99 9340946472) %COHB ART (test code = 0.3 % 0-1.5 6164459276) %METHB ART (test code = 0.0 % 0.4-1.5 L 8236090586) VOL%O2 ART (test code = 15.4 % 15-23 6469072617) NA (test code = 126 mmol/L 135-145 L 9950135199) K+ (test code = 4.3 mmol/L 3.5-5 0954352398) AC CA IONZ (test code = 4.70 mg/dL 4.5-5.3 4584589310) GLUCOSE (test code = 144 mg/dL 70-110 H 0070865469) LACTIC ACID (test code 2.79 mmol/L = 3489777643) Lab Interpretation Abnormal (test code = 65158-3) [facility] [id number] 11:44:00 Test Item Value Reference Range Interpretation Comments URINE CULTURE (test No aerobic growth (< code = 630-4) 1000 CFU/mL) [facility] WITH [id number] 09:53:00 Test Item Value Reference Range Interpretation [...] RDW-SD (test code = 48.8 fL 38.5-51.6 26080-0) RDW-CV (test code = 15.0 % 12.1-15.4 788-0) PLT (test code = See_Comment L [Automated 777-3) message] The sy stem which generated this result transmitted reference range : 150 - 328 10*3/ ?L. The reference r meredith was not used to interpret this result as normal/abnormal . MPV (test code = 11.8 fL 9.8-13 68632-6) IPF % (test code = 6.5 % 1.2-10.7 Platelet count 6630724105) measured by fluorescence method. NRBC/100 WBC (test See_Comment [Automat ed code = 9069868814) message] The system which generated this result transmitted reference range : 0.0 - 10.0 /100 WBCs. The refer ence range was not u sed to interpret th is result as normal/abnormal . NRBC x10^3 (test code <0.01 See_Comment [Auto mated = 0542537306) message] The s ystem which generated this result transmitted reference range : 10*3/?L. The reference range was not used to interpret this result as normal/abnormal . SEG % (test code = 20 % 33-76 L 53271-5) BAND % (test code = 45 % 0-1 H 09885-4) META % (test code = 9 % See_Comment H [Automa dain 82570-8) message] The sy stem which generated this result transmitted reference range : <=0. The refere nce range was not u sed to interpret th is result as normal/abnormal . MYELO % (test code = 1 % See_Comment H [Autom ated 26744-3) message] The sy stem which generated this result transmitted reference range : <=0. The refere nce range was not u sed to interpret th is result as normal/abnormal . LYMPH % (test code = 20 % 14-54 10408-3) MONO % (test code = 5 % 0-4 H 70204-3) ANC (test code = 1.40 10*3/uL 1.99-6.95 L 7871630503) GOLDEN CELLS (test code 2+ See_Comment A [Auto mated = 6190-9) message] The sy stem which generated this result transmitted reference range : (none). The reference range was not used to interpret this result as normal/abnormal . SCHISTOCYTES (test 1+ A code = 800-3) DOHLE BODIES (test Present A code = 7792-5) TOXIC CHANGES (test Present A code = 803-7) Lab Interpretation Abnormal (test code = 14222-4) [facility] METABOLIC PANEL (NA, K, CL, CO2, GLUCOSE, BUN, CREATININE, CA)2020-04-07 09:21:00 Test Item Value Reference Range Interpretation Comments NA (test code = 137 mmol/L 135-145 3493180706) K (test code = 4.6 mmol/L 3.5-5 4646045571) CL (test code = 110 mmol/L 98-108 H 3704001583) CO2 TOTAL (test code = 17 mmol/L 23-31 L 6415494013) AGAP (test code = 2-16 0919996454) BUN (test code = 24 mg/dL 7-23 H 6566598704) GLUCOSE (test code = 132 mg/dL 70-110 H 1934734695) CREATININE (test code = 1.23 mg/dL 0.6-1.25 9348915331) CALCIUM (test code = 8.0 mg/dL 8.6-10.6 L 7193058635) eGFR Calculation mL/min/1.73m2 (Non-) (test code = 9143344489) eGFR Calculation mL/min/1.73m2 () (test code = 2372940147) GILBERTO (test code = GILBERTO) Association of [...] tests). Lab Interpretation Abnormal (test code = 57146-3) [facility] 09:19:00 Test Item Value Reference Range Interpretation Comments MAGNESIUM (test code = 7104138689) 2.9 mg/dL 1.7-2.4 H Lab Interpretation (test code = Abnormal 78823-0) [facility]2020-[facility]-07 04:37:00 Test Item Value Reference Range Interpretation Comments POCT GLU (test code = 4667721071) 111 mg/dL 70-110 H Lab Interpretation (test code = Abnormal 10557-3) [facility] [id number] 02:35:00 Test Item Value Reference Range Interpretation Comments HCV Ab (test code = 86679-7) Negative HCV Semi-Quantitative (test code = 71876-0) [facility] + LACTIC [id number] 02:15:00 Test Item Value Reference Range Interpretation Comments PH (test code = 7.32-7.42 L 9805363271) PCO2 PANKAJ (test code = See_Comment L [Auto mated 6552794808) message] The sy stem which generated this result transmitted reference range : 41 - 51 mmHg. The reference range was not used to interpret this result as normal/abnormal . PO2 PANKAJ (test code = See_Comment HH [Autom ated 5697210706) message] The sy stem which generated this result transmitted reference range : 25 - 40 mmHg. The reference range was not used to interpret this result as normal/abnormal . HCO3 PANKAJ (test code = See_Comment L [Auto mated 5635093872) message] The sy stem which generated this result transmitted reference range : 24 - 28 mEq/L. The reference range was not used to interpret this result as normal/abnormal . AC VBE(BEAKER) (test mEq/L code = 1698050035) THB PANKAJ (test code = 11.2 g/dL 13.5-18 L 8964368234) %O2HB PANKAJ (test code = 98.7 % 52-63 H 2771065583) %COHB PANKAJ (test code = 0.3 % 0-1.5 2627041928) %METHB PANKAJ (test code = 0.1 % 0.4-1.5 L 0607197687) VOL%O2 PANKAJ (test code = 15.9 % 6-12 H 8820679745) NA (test code = 136 mmol/L 135-145 5736583938) K+ (test code = 4.2 mmol/L 3.5-5 9023264446) AC CA IONZ (test code = 4.60 mg/dL 4.5-5.3 8309644186) GLUCOSE (test code = 108 mg/dL 70-110 9235671586) LACTIC ACID (test code 2.37 mmol/L = 6486994808) Lab Interpretation Abnormal (test code = 38391-5) [facility]NA+K+GLU+CA2+2020-04-07 01:54:00 Test Item Value Reference Range Interpretation Comments PH (test code = 2) 7.35-7.45 LL PCO2 (test code = See_Comment [Automate d message] 0236204614) The system [email or web address] generated this result transmit dain reference range : 35 - 45 mmHg. The reference range was not used to interpret this result as normal/abnormal . PO2 (test code = See_Comment H [Automated message] 3000616924) The system [email or web address] generated this result transmit dain reference range : 80 - 100 mmHg. The reference range was not used to interpret this result as normal/abnormal . HCO3 (test code = See_Comment L [Automate d message] 1572292219) The system [email or web address] generated this result transmit dain reference range : 22 - 26 mEq/L. The reference range was not used to interpret this result as normal/abnormal . BE (test code = See_Comment L [Automated message] 9879310111) The system [email or web address] generated this result transmit dain reference range : -3.0 - 3.0 mEq/ L. The reference r meredith was not used to interpret this result as normal/abnormal . THB (test code = 10.6 g/dL 13.5-18 L 9010704411) %O2HB (test code = 99.0 % 94-99 8321019779) %COHB ART (test code = 0.3 % 0-1.5 3337388446) %METHB ART (test code = 0.3 % 0.4-1.5 L 1283435443) VOL%O2 ART (test code = 15.3 % 15-23 0176226998) NA (test code = 136 mmol/L 135-145 6722470258) K+ (test code = 3.1 mmol/L 3.5-5 L 3553856366) AC CA IONZ (test code = 4.30 mg/dL 4.5-5.3 L 6094531948) GLUCOSE (test code = 113 mg/dL 70-110 H 6358141692) Lab Interpretation Abnormal (test code = 02218-7) [facility]NA+K+GLU+CA2+2020-04-07 01:53:00 Test Item Value Reference Range Interpretation Comments PH (test code = 2) 7.35-7.45 PCO2 (test code = See_Comment L [Automate d message] 2199528343) The system [email or web address] generated this result transmit dain reference range : 35 - 45 mmHg. The reference range was not used to interpret this result as normal/abnormal . PO2 (test code = See_Comment H [Automated message] 3309547994) The system [email or web address] generated this result transmit dain reference range : 80 - 100 mmHg. The reference range was not used to interpret this result as normal/abnormal . HCO3 (test code = See_Comment L [Automate d message] 7841965151) The system [email or web address] generated this result transmit dain reference range : 22 - 26 mEq/L. The reference range was not used to interpret this result as normal/abnormal . BE (test code = See_Comment L [Automated message] 2323072808) The system [email or web address] generated this result transmit dain reference range : -3.0 - 3.0 mEq/ L. The reference r meredith was not used to interpret this result as normal/abnormal . THB (test code = 13.1 g/dL 13.5-18 L 1438865284) %O2HB (test code = 98.9 % 94-99 1858273906) %COHB ART (test code = 0.1 % 0-1.5 7244770170) %METHB ART (test code = 0.6 % 0.4-1.5 4270764031) VOL%O2 ART (test code = 19.3 % 15-23 3196067143) NA (test code = 132 mmol/L 135-145 L 4074595967) K+ (test code = 4.2 mmol/L 3.5-5 7933960468) AC CA IONZ (test code = 4.60 mg/dL 4.5-5.3 4183805470) GLUCOSE (test code = 99 mg/dL 70-110 6669577647) Lab Interpretation Abnormal (test code = 25575-1) [facility] WITH [id number] 01:29:00 Test Item Value Reference Range Interpretation Comments HIV Negative Negative Semi-quantitative (test code = 60766-5) GILBERTO (test code = Non-reactive for HIV-1 GILBERTO) antigen and HIV-1/HIV-2 antibodies. ?No laboratory evidence of HIV infection. ?Repeat in 2-4 weeks if acute HIV infection is suspected. [facility] GLUCOSE (AUTOMATED)2020-04-07 00:40:00 Test Item Value Reference Range Interpretation Comments POCT GLU (test code = 9976888263) 100 mg/dL 70-110 Lab Interpretation (test code = Normal 49054-1) [facility] GLUCOSE (AUTOMATED)2020-04-07 00:06:00 Test Item Value Reference Range Interpretation Comments POCT GLU (test code = 7431369168) 116 mg/dL 70-110 H Lab Interpretation (test code = Abnormal 40925-8) [facility] GLUCOSE (AUTOMATED)2020-04-06 22:48:00 Test Item Value Reference Range Interpretation Comments POCT GLU (test code = 2713154182) 94 mg/dL 70-110 Lab Interpretation (test code = Normal 83532-0) [facility] 1 [id number] 21:06:45 1. Interval placement of right internal [...] reviewed this study and agree with the abovereport.[facility] WITH [id number] 20:15:00 Test Item Value Reference Range Interpretation [...] RDW-SD (test code = 49.2 fL 38.5-51.6 60291-4) RDW-CV (test code = 14.7 % 12.1-15.4 788-0) PLT (test code = See_Comment L [Automated 777-3) message] The sy stem which generated this result transmitted reference range : 150 - 328 10*3/ ?L. The reference r meredith was not used to interpret this result as normal/abnormal . MPV (test code = 12.1 fL 9.8-13 50502-5) NRBC/100 WBC (test See_Comment [Automat ed code = 6250262704) message] The system which generated this result transmitted reference range : 0.0 - 10.0 /100 WBCs. The refer ence range was not u sed to interpret th is result as normal/abnormal . NRBC x10^3 (test code <0.01 See_Comment [Auto mated = 5156221932) message] The s ystem which generated this result transmitted reference range : 10*3/?L. The reference range was not used to interpret this result as normal/abnormal . SEG % (test code = 38 % 33-76 80864-2) BAND % (test code = 28 % 0-1 H 22489-6) META % (test code = 4 % See_Comment H [Automa dain 44080-6) message] The sy stem which generated this result transmitted reference range : <=0. The refere nce range was not u sed to interpret th is result as normal/abnormal . MYELO % (test code = 6 % See_Comment H [Autom ated 51852-7) message] The sy stem which generated this result transmitted reference range : <=0. The refere nce range was not u sed to interpret th is result as normal/abnormal . LYMPH % (test code = 16 % 14-54 43871-2) MONO % (test code = 8 % 0-4 H 38897-2) ANC (test code = 0.40 10*3/uL 1.99-6.95 L 7154602181) GOLDEN CELLS (test code 3+ See_Comment A [Auto mated = 7790-9) message] The sy stem which generated this result transmitted reference range : (none). The reference range was not used to interpret this result as normal/abnormal . DOHLE BODIES (test Present A code = 7792-5) Lab Interpretation Abnormal (test code = 23040-6) [facility] [facility] 19[facility]55[facility]00 Test Item Value Reference Range Interpretation Comments APTT Patient (test code See_Comment H [Au tomated message] = 3173-2) The system [employer] h generated this result transmitted ref erence range: 26 - 36 Seconds. The reference range was not used to int erpret this result as normal/abnormal . Lab Interpretation (test Abnormal code = 57293-2) [facility] AreaPROTHROMBIN TIME / [id number] 19:55:00 Test Item Value Reference Range Interpretation Comments PROTIME PATIENT (test See_Comment H [Auto mated message] code = 5964-2) The system [employer] ich generated this result transmitted ref erence range: 10.1 - 1 2.6 Seconds. The reference range was not used to int erpret this result as normal/abnormal . INR (test code = 6301-6) Nor mal INR <1.1; Warfarin Therap eutic range 2.0 to 3. 0 or 2.5 to 3.5, dep ending upon the indica tions. Lab Interpretation (test Abnormal code = 75999-1) [facility] Area[facility] METABOLIC PANEL (44952)2020-04-06 19:50:00 Test Item Value Reference Range Interpretation Comments NA (test code = 137 mmol/L 135-145 5067258453) K (test code = 3.6 mmol/L 3.5-5 4524520506) CL (test code = 109 mmol/L 98-108 H 0335715453) CO2 TOTAL (test code = 18 mmol/L 23-31 L 8248427767) AGAP (test code = 2-16 3365453879) BUN (test code = 27 mg/dL 7-23 H 1624689765) GLUCOSE (test code = 91 mg/dL 70-110 1612221479) CREATININE (test code = 1.38 mg/dL 0.6-1.25 H 4957624203) TOTAL BILI (test code = 1.0 mg/dL 0.1-1.9 7063936864) CALCIUM (test code = 8.0 mg/dL 8.6-10.6 L 4059747912) T PROTEIN (test code = 4.3 g/dL 6.3-8.2 L 5440845461) ALBUMIN (test code = 2.7 g/dL 3.5-5 L 7329080661) ALK PHOS (test code = <20 34-122 L 9252689200) ALTv (test code = 9 U/L 5-50 2-6) AST(SGOT) (test code = 21 U/L 13-40 2708130366) eGFR Calculation mL/min/1.73m2 (Non-) (test code = 0039536650) eGFR Calculation mL/min/1.73m2 () (test code = 8837944865) GILBERTO (test code = GILBERTO) Association of [...] tests). Lab Interpretation Abnormal (test code = 26404-9) [facility] (NA, K, CL, CO2, GLUCOSE, BUN, CREATININE, CA)2020-04-06 19:50:00 Test Item Value Reference Range Interpretation Comments NA (test code = 137 mmol/L 135-145 1859297477) K (test code = 3.6 mmol/L 3.5-5 9438743080) CL (test code = 109 mmol/L 98-108 H 1551873929) CO2 TOTAL (test code = 18 mmol/L 23-31 L 3470310930) AGAP (test code = 2-16 0027900081) BUN (test code = 27 mg/dL 7-23 H 0666350094) GLUCOSE (test code = 91 mg/dL 70-110 2540458415) CREATININE (test code = 1.38 mg/dL 0.6-1.25 H 8698253472) CALCIUM (test code = 8.0 mg/dL 8.6-10.6 L 3126644841) eGFR Calculation mL/min/1.73m2 (Non-) (test code = 8466938953) eGFR Calculation mL/min/1.73m2 () (test code = 1502170547) GILBERTO (test code = GILBERTO) Association of [...] tests). Lab Interpretation Abnormal (test code = 56879-1) [facility]MAGNESIUM2020-08-14 19:44:00 Test Item Value Reference Range Interpretation Comments MAGNESIUM (test code = 2235140874) 1.7 mg/dL 1.7-2.4 Lab Interpretation (test code = Normal 18473-5) [facility] Area[facility] PANEL 21 + LACTIC [id number] 19:25:00 Test Item Value Reference Range Interpretation Comments PH (test code = 7.32-7.42 L 1892856721) PCO2 PANKAJ (test code = See_Comment L [Auto mated 9189335415) message] The sy stem which generated this result transmitted reference range : 41 - 51 mmHg. The reference range was not used to interpret this result as normal/abnormal . PO2 PANKAJ (test code = See_Comment H [Autom ated 2525843203) message] The sy stem which generated this result transmitted reference range : 25 - 40 mmHg. The reference range was not used to interpret this result as normal/abnormal . HCO3 PANKAJ (test code = See_Comment L [Auto mated 2818208344) message] The sy stem which generated this result transmitted reference range : 24 - 28 mEq/L. The reference range was not used to interpret this result as normal/abnormal . AC VBE(BEAKER) (test mEq/L code = 6482682650) THB PANKAJ (test code = 10.1 g/dL 13.5-18 L 9858459763) %O2HB PANKAJ (test code = 84.0 % 52-63 H 7748549906) %COHB PANKAJ (test code = 0.6 % 0-1.5 5122436981) %METHB PANKAJ (test code = 0.3 % 0.4-1.5 L 3785684527) VOL%O2 PANKAJ (test code = 12.0 % 6-12 9469400206) NA (test code = 135 mmol/L 135-145 1295373472) K+ (test code = 3.5 mmol/L 3.5-5 0983891271) AC CA IONZ (test code = 4.50 mg/dL 4.5-5.3 9209539817) GLUCOSE (test code = 87 mg/dL 70-110 8161742511) LACTIC ACID (test code 3.34 mmol/L = 9748727579) Lab Interpretation Abnormal (test code = 33700-9) [facility] 20 + LACTIC [id number] 19:19:00 Test Item Value Reference Range Interpretation Comments PH (test code = 2) 7.35-7.45 L PCO2 (test code = See_Comment L [Automate d 3622315144) message] The sy stem which generated this result transmitted reference range : 35 - 45 mmHg. The reference range was not used to interpret this result as normal/abnormal . PO2 (test code = See_Comment H [Automated 0307947410) message] The sy stem which generated this result transmitted reference range : 80 - 100 mmHg. The reference range was not used to interpret this result as normal/abnormal . HCO3 (test code = See_Comment L [Automate d 8002747988) message] The sy stem which generated this result transmitted reference range : 22 - 26 mEq/L. The reference range was not used to interpret this result as normal/abnormal . BE (test code = See_Comment L [Automated 7029572678) message] The sy stem which generated this result transmitted reference range : -3.0 - 3.0 mEq/ L. The reference r meredith was not used to interpret this result as normal/abnormal . THB (test code = 10.4 g/dL 13.5-18 L 9638081875) %O2HB (test code = 98.3 % 94-99 3231974525) %COHB ART (test code = 0.3 % 0-1.5 1417966684) %METHB ART (test code = 0.3 % 0.4-1.5 L 5888087346) VOL%O2 ART (test code = 14.8 % 15-23 L 9076860993) NA (test code = 135 mmol/L 135-145 1125467462) K+ (test code = 3.5 mmol/L 3.5-5 7000616583) AC CA IONZ (test code = 4.50 mg/dL 4.5-5.3 3321345044) GLUCOSE (test code = 96 mg/dL 70-110 1996636919) LACTIC ACID (test code 2.95 mmol/L = 2092919847) Lab Interpretation Abnormal (test code = 53918-0) [facility] [id number] 16:51:00 Test Item Value Reference Range Interpretation Comments Case Report (test code Surgical Pathology ? ? = [id number]) ?Case: [id number] ? Authorizing Provider: ?Bia Pedro MD ?Collected: ? 04/03/2020 1513 ?Ordering Location: ? ? [facility] OR ? Received: ?04/03/2020 1657 ? Department ? Pathologist: ? Laverne, Nimisha, PHD ?Specimens: ? A) - COLON, total abdominal colectomy ? B) - COLON, donuts x2 ? Final Diagnosis (test c1zavXFhIWIul6uaYGZpfU code = 7578416766) FuZzEwMzNcZnRuYmpcdWMx SStvfjEkOYmey9KpD8ZtPm AwMFxhbnNpXGRlZmxhbmcx TRYmKOF5kyAbWIKvMJdeOV PtYNliDk9fpHLluAzzNfGt HLUjx7eizrTNqlyvzYh7k1 ucDUElYwE9zNLpMHmqF8mt umKheHDhVCGzXHy4pI91XS NkjW5wzMIpHKplicRwAOhh biXhpjFqIvc4STVgL9zxUL HbHRXaY6PhQN0cNBRrHfb9 CSP0IZF2uJynh7N4tIAuqA SxhHvfHsNiSiPtNYTEn5Vg RGp9fVofX9JoHABdSbW5sO QgUGFyYWdyYXBoIEZvbnQ7 gFdoC1TqNZVaDvB9xBBsTT GvVJdmVEKgOp7kfMb7rHmi KycdGIU1Wlt3TK8oqv17je m6qHakLKPoumtjChO5SGag UMRizjqfDZz8DZfeLJGkfW SyPIImdYHhJ0LzKEutTG0a mki6LcBcJW3kxbujNJumKC YhAJV8LqFgSZFih8Bwywfr JhOpmr3qfc34NLH9w0WhtH rbWSU9ODJ3WuAeDn8scWOo CEFvFE8cCkZvsGMdTJErgg 58aClqJCtnzcIxgY4iPnLh OUFpuWNdTINdOH4caFWhMW OgjP7cdhczDRKmUxXxkclg TDUyoHbojyZpWi3hrHhlHE U8WGiuO1ugfH1lOaC0AMth I7xzsT0vMCa3ZWblbXQ2GT NjjF5sJR2fwsdpz8gbZOX6 JNokJXEthbV9qbGcUJUulD TgU0ClnJ87XwIqwMAoK6Zp jX4oSRyxOVGptrv1PxDvKe 5ckFTxmWC2XLkiFtznKYnd XHBnbmNvbnRccGduZGVjXH BsYWluXHBsYWluXGYwXGZz TsSnjZjqwNhdwA6rJtCrXg MyMFxwbGFpblxmMVxmczIw UOVlloREXmFSK0sWVhciYD 2NXUqeUcIHDXYCJK9AVnec AGHyJCGlUW6iZrBXB6UBCJ LdI84GQ1MDBQwPJmKKNYPD KUKBVv1BJ28NWPWVVC7KHp RKPMoEKRAJC89ERMEGTABX TaWMLOGVRFMQT6gCQStlWM SqLWEzGWRqT1XORDPTG7OL K79sMIOjogBjUWPqEUJXQS iBSISLGFWUFTUEM4TIQZ1H DI2GZFqFXKOqK6rJBENGJM KkO30HK42AInYNAqXAAOfI FEBBTUAOCP3IFQiUNuKQIT qHDkuRBYBWJ7POFFLkyZJk XPIgUTIaQC8WZ9TMKSEBOA 9OXHBhciAgICAgLSBOTyBF SpxHJZ9HKNGPDkBMOZANJ0 IEQC6ZN9NYO2uKKZgdIEMt NLNkWR8dNB5YSJWQHrZQTS BTRVNTSUxFIFNFUlJBVEVE ROPZSB8OVBEcwLXjFJSpTX AtIFJFQUNUSVZFIExZTVBI JR2KNRXXMSPostBmRBTsLU CCGDBPFMIvJiIMRSFHJH3L LO8YJssDOsPdkDKxEBGbxy xwbGFpblxmMVxmczIyXGxh loynNZZqIUguU5ecPxIuMX QniOyoESgox4NtVYCoQTEz AByypmZlUBKzi9gfOUTqZc D0uTWvRSNSBvDMPyRlBA8u KF2vEXGrEMCwHBeoCgFETI xwbGFpblxmMVxmczIwXHBh vyzxUKU9v3miqCQfICYloJ QjZaZpOLMzQHVyx3oyTCGa bGFuZzEwMzNcZnRuYmpcdW YpLHPoRmQjv4olc020pOXt n8lwMKSnKcA5hISjMIYljT mafex0dSiuQmDrMLDdt4ns cyBcZmNoYXJzZXQwIEFyaW CeU391CVXdDFale8hic4Hm MXFfoXBoa6M9YKUGHStkXv EpY093o8drv1vntjAosIM1 NNLnNOO0ACedtpSgfyV3HR wtdAIlJyQ6LRxsudNnDXup mrVtaqIuIbw2LPZnF326YY A5bUlhv8fdNSN2PSPvSLZs QjvcUa5yfUObZ193QNJuRD CSQLKqlGa4TXOljzOfzfRa nRLTp038A475t6jgFXHlbq KgwQaEtnpuq2ieB365UKSw cGVydzEyMjQwXHBhcGVyaD V3LCTvTO3tmtzhZQooSDqq OKKzxeM9LBZyfKWuL4VdOW UoBR7zftswWUG1FIjnGYNl ORH7OeBbHIDrw2Neyco8Hw Lmnj0oav62FKP7a7KwxKra DVS2BSK8ObCwJa2ujVOcOE ZiOA3yYcTqlKPoIFGsut16 vFzaPZvdgpUxbF3yEmQtZN JzcBQzGDFjEL3oaMXwNRCn nT1mbmzpNUOuEpHaklziOV TyjVnmrmPzGm5jqGabKKA9 PPnyS4xozQ5mAdS9ISdoZ3 hrxT0bXPv3IYnnpJN4CZRh tK1xRI7qyjmob9tqANyaOQ fvYFTyteV6scK0LDEzkPUv K0SedU8dKUQoEU8ikufux4 haGJH8VEnhJTGwTNL0FpCe DCHej3Ivpvv5StVuv1KocR OhMVreU56jz405MCGwojKo U7zkpYNdroudgVUtlazvSV cuiwK9CTFbUZRfLMdoJGXc XGZzMjBcbGFuZzEwMzNcaG ljaFxmMVxkYmNoXGYxXGxv L9nmHkUjS8PkQTDmFkHqmJ GfSVnmoMZ5CQIjBYIpn02h qDx5VTEllngej6NcXHYdiK CvfUZumO7ymmTxh4nsPJHk ZFIoFHSnX1VvMGY4wARwST OptHQkdJN9NY9xsuTqFF4w ZGUgYnkgcmVzaWRlbnRzLC BfMKvjy4xyLF1mFAHupDix vM7usOG1OVYjt6lcfPLrqH Gzy8nwz7FcwiFxRYzoBFAn DPxbWMUmHBMpAQ7jHZMoqS JcqoPkq1L1MollxHOywikf DbtxklE3XAsyhzkgIKLtGC gkO8ssCuWbGPCyaKlrSnlg c3SkIYZmWYHtGdqotABnbA 0= Clinical Information Large bowel (test code = obstruction [K56.609] 4495536832) Gross Description (test j2wlaRRlCWVczDOyYfZhJT code = 5783985797) YmMPKea5ajFILnyCPpMeCx MzNcZnRuYmpcdWMxXGRlZm Fio2nih856jQOsx1xnXBAy XiX1cWWbEUHyoVRnV567BG DjQCkkr1csi8OjFLPihPEc k6B6PISSsyjxyPp8eJbmB8 9mf5N0PuxbI2gtMLIxGBgm JTZtJCggtCBgNUG5XCUdSQ Z1MZopdkYvwtC7AGmsnOSz TgY6RQg0r5qwlRyaAIVcFY O3z1xnQHbntvQdJI5ddv3o hGx5u4btjnHsTVWnOOCscB IQBLTfQ6DwcEofNw6jdOv2 wMcrQpskXLL1Psv2WL8trb 64xhp0eQclUDEnyeiaTpU6 WOjxMSAimulwRJk3ZHejKH MdiGKvDEHvcKIpN7CeDEnr KY9dxta1KkCeGJ3zjxfrYV hxRGAnMWG6YoJrZUXap5Or nkmtAaJsto1nnd92VOJ0j4 VwmPdwSVW1VUE3PnPeGm5t bVYdUWLlSI2rOvRayYDlHH Sxdr13qQmbCOccffIrrO8b AlWeVJUdtYVoYCKoLO7jnY WtPSUphQ8rhkjgKYVxPeXz rdgqBUAsoZmnysQyXh5nzS fuPVD0RIaqY0xqaA9iWzV8 WBbqH8vxpG9yUDj9VIjozW H3PLPjeS5hMZ2hbxqpo4sl WDW2HSvuRNWfubZ3sfQjFG EhaSVkR9QacO43TeKkyBWq H0BuxQ4fXDzxCKJiacy2Uc EtYf1ixNDahUK5PHdjGbmc YWdlXHBnbmNvbnRccGduZG VjXHBsYWluXHBsYWluXGYw ZBToDjYlgPacaLvjbR0jPb BcZnMyMFxwbGFpblxmMVxm czIwIFNwZWNpbWVuIEEgaX CogzBzSRr0PAOiNaAur9bu lYYoLGudDAWvh4s5wMS0nP WllXC1lOCymLalBI2ceMRz VCNOXJ19kHLzwxHcJ26on6 5iLDEuyHSlNGRuSX8voH1u eQFsf3vvB7RmrIfwEKQlkn ZkA84mt7gmqZZew5VwXZC3 i1EldQMsc3sjU2WvtAihf4 HjA5dnHK3lEUyxKpJnD47e vK3rpQRmX9UxGHjgBF8eCW AmHxAvU02kyQ2zSZpxcST7 QXIeFYypyFstOFT7CNEdLT YpiWKotRtiJZsgvDysyD2m BGRfCJEvzLYzbeXhRX1vuP kvpIN1OoImJ46tQZilhDF3 NZZiKTQ7pVZhNT4sIKwyb4 NzbHkgaWRlbnRpZmlhYmxl RVRxaHMnLFp2JoJRvAOsr2 Hgq5JdKQqlXVTblc8tZVYt EG0zFCMfa923vYJ5qJLxKI HeoXQ6RYLxboIab2Mdsk9c VGhlIHNwZWNpbWVuIGlzIG 4xQN7vNLXsjL2sIoWlyGKi CG03qT3rg8KmtHEmhTNfTf 9yZGVyLiBUaGVyZSBpcyBh ERBygxL2mDExipMqyKmqcG I0ROfbPJboCBmfPIBxQ3Vo AKNqe94lWBIvipY6oC13qj KabLQdXPD2FIDcWLErtURc ZcLfZ33zSqDxrXJ3dCTjXZ liiEVsSP0xxailydJxpnYi ORVvH80wMhHgfVJ4zDQdxG VxkJlgQWhoiTYdL6urKsXY ma34zU9tqUH3wdA3hAUejB SqnprxhWBrmYViUU54nT4o MITgd7TuJ2rwKVpzt6Rwuw Q5sILxEv31CPuxaAWeJMhl dGVuZGVkIGZvciBhIGxlbm q5eCWzYfUnJQ1uEOFhTsNA cGMfwO6ucGnlMVRef3Wjxo BxJSAmZQkzd72dqNhdWQ67 L93xPBKhvkScj7HdoWy5UT JhHDM5QG4zJZivL6WputMk YXIsIHdpdGggYXJlYXMgb2 VpH76oWuggt2XrvvOrOIPs TQTmGM3bYCKrugUkD4jsGs Apik6yXNBrRX8zBs66TBFq NL0mVMohXZazyJyrh8TtuG icMOAhu3ArtdJmDVDsOPjk s25ogKAssVoiX9qpmmZbJH QaLHDekDVmCUB6HNjfXT9e vE6uPMSjj61bKK7hGOAgAo LqwLgtFAAxJCXgEV0eoZ9d gmsubVDgk2TuRP6xFGYeXP Lfm0zqyhQyiyW2UR5elZyx bzVevvAgxBalOOMpp3PyrG YiKSXxcH3uKDEaYLFtkxJd er5cd0h0ZAQlBIDbVR7zYS HbkWgaEGhlVA8uSSUqrHWz zJ9eiNhjnpB3tCOxZEAeao BhbiBhZGRpdGlvbmFsIHdl gTuxsNBveVCvJDG3dtlmB0 WkTMKsUCDnVMUul6DqjQQ9 cgT0fUCwpHxqt9UsX7BhCP a9nmK3xT3xTPQpBXQmIKzv JDPmjE3lq2qyfOLthHuib8 OhB1LlKGQdxRVnMIumxJbi ZZ8vXAE7RXEeQMGxa1HzoU CqqKXsNeJrhePzo8DrveXg NQFeZMFkeWThofGsPF8oxT cuFtqxCD85RYUcUKqlUZJo PN2maOIwGJF6yQCaYENdn7 RtoDIiPWKvGWSuu3UgmBwi IGxpbmUgYXQgdGhlIGJsaW 3nQBQqTWklz8Jpqb64fyYf SNQnoFNhqOPmE0fpZZJeGY pqe3RzYNAuj8Z0TE9uZVxz IHJlbWFpbmluZyBtdWNvc2 Vss2PjpJxfZAdxYZKyPFjo HQDkQtW1a8KzeSZofDZczV BhbmQgdGhlIHZpYWJpbGl0 bUTvSfG6oDDkxyEyYNP8kR 1aGJ4sngpszjSeCO2nd6Fi UcRhX2Xeq0WjzRCjDKAcfz 1pbmVkLiBUaGUgcGVyaWNv pR1hgUJyTNEzpW6dHZL6gF CgxPWtbTTapBZkfIW1FXOz Uq5jKOEquH0nq1egvUJpkO dqgDodhc4bVMDxMGCfemja ayydTgFqjYYhPpUwUR63BY UsRKnqZAajTHR3CIH3OIAy xJEin5mkkeihVABquYTtm0 RrlWT3jYCbVMYgT5Myo71s EWQnAQWixYHvnIT1PIPdyO 4gQTEtQTEwLlxwYXJccGFy SECvN9Vup94xP94yTAqbnI UzTCTzKmEFyz67vN7vvOMu MJQtS2Qke98zfTOuQ6xsMA BlbiBmYWNlLCByZXByZXNl bfRxlTq1TWafDFXrTHR9DK Pwp3KanPSiZYMaC7Jek73x lYTzC0esOTXtqxJfSNIoGC EiKUNrGKSmsaXxrQw6UAcc FWYjYXL7NQmePK4iIDQmgQ SmgJ1coDmmsoI5oHBwTZF9 qltnR0IrCRLbSRPcORYqwM Ore3PhuCA6zRRcXPAqerAV YPxfFoRjolJwQN08CJNnzi Rgo5HjpOpjelMwb7OfaUWx i5OkHYDqQAA1NTllRTOet4 hpbWFsIHRvIHRoZSBkaXN0 SG3aFQXwHFIdWFhuFAHzST BaPAP0ASYwpPMrs3CacPE7 sEKiVVVhT9Hje40qIF0xRG 67N01aNYNzvuQnt0CvhQTc zm8xPFMbBFDqlXB5WF2qEV IhOSQcZRofMXHiIDd9PXLb DSRcn6VsBJO0idubH7AiDG NjYXIgZGlzdGFsIHRvIGRp o0VpvbAnTGMxlsPqBLAqHH OaIBAcyyXlrRd4JRgkKPTx BCi1CGOcgXIrz2XcbTE5mK ArIDAcC8Ybq87tTM3rAF08 Z78aZNYbxkXrb9WpmTLxhN Q7KSziyH6gnCxnQYWvc4Rc bmRlZCBhcmVhXHBhciBBOT xvNL2pr3xvjUNsjWmps4Zr M5VmSXWisKVzJKOuUXDwNL XfpoGdsKv0PCxzWKYpSRIl QbDLlb9wvkZbBCE0vR7eTP 9mIGludGVzdGluZSBhdHRh X1joZDX1hzZzc8AacNYhHE RkrBTbY9OdVYwmoqRrmcAn NYOvgVWpd6BkhLH3zKSxLU BezqNTIQW0CIXrtX9km5qz vOPrnHlunMknhs0kVAHzVP dop0hxEXisRGTayILqPGKf icTsgDpqaE1mYiIuOzKoFH xwbGFpblxmMVxmczIwIFNw ZWNpbWVuIEIgaXMgcmVjZW h3FECfZoZkj9wvbGIyRDjy ANI9rTDhIRDuUXCrDACuML 32C8IctsJhOFfvQXwalwBn KgDoIOOsc3nrgsoaOW5reK MiVCupRHjgUogsYN7gHCEs eaUkl9NaLF3oYTRaBR3co8 LviV2pwV5eCNKaawL3xvCt CD94BBheKT86KPxnSF72YG NtIGFuZCAyLjUgeCAxLjkg gDGwEbveH81hQhEFj3KaGM UmemT7auDwuxXtDpjvAFM6 LTLhYSWtIIBvmGQkwU5hcg BltwXbuGWugRD0SGZoLA25 xHXijLwxJB9xRwYbXRTcyt FCAX6TSogbrPPgF4GsMSSy emY5ZNltGZUyJDQhBRBvDL BzbWFsbGVyIGRvdWdobnV0 IGluIEIzLiBccGFyXHBhci HGXOS7JBYhcpTkwJepVACN DYZeNBJbN6G7HSKfgTpsYS PfDOC2asWjDTNqJ4UhFMWV UYYUA8JoJDGcEVbpFODpHN ZzMTZcbGFuZzEwMzNcaGlj aFxmMVxkYmNoXGYxXGxvY2 qwCvYxF2KiQRRqIGJgC99w bKzzkZ2rQzXkEqLvSKqhCC RjgVgbyUhmhK1oOkJoXbIq MFxwbGFpblxmMVxmczIwXH Bhcn0= Embedded Images (test code = [id number]) [facility] 16:04:Ana Ahn MD ? ? 04/06/2020 11:06 AMIntubationUrgency: emergent Difficult airway General Information and Staff Patient location during procedure: ORAnesthesiologist: Cynthia Herring MDResident/MAINTENANCE ADVISOR: Dana Sampson DOPerformed: anesthesiologist and resident/MAINTENANCE ADVISOR Indications and Patient ConditionIndications for airway management: [...] tube into airway. [facility]2020-[facility] 16:04:Ana Ahn MD ? ? 04/08/2020 ?5:11 AMIntubationUrgency: emergent Difficult airway General Information and Staff Patient location during procedure: ORAnesthesiologist: Cynthia Herring MDResident/MAINTENANCE ADVISOR: Dana Sampson DOPerformed: anesthesiologist and resident/MAINTENANCE ADVISOR Indications and Patient ConditionIndications for airway management: [...] glidescope to advance tube into airway. Additional PlhmxrflU9s on VL by CA1, multiple attempts by CA1 with ETT with stylet and bougie, unable to pass ETT through glottis. BVM between attempts. Glidescope stylet with ETT used by faculty under VL, attempt x 1 by faculty, g1v, atraumatic.[facility] AreaXR [id number] 15:42:20 Large volume pneumoperitoneum. Continued gaseous distention and dilatation of the stomach and smallbowelfollowing total colectomy with ileoanal anastomosis may representpostoperative ileus. Findings regarding pneumoperitoneum were already communicated to [facility]. Preliminary Report Dictated by Resident: Bart De [...] small bowel and issimilar to prior radiographs. Pringle project over the midline in the lowerabdomen. [facility], Radiant Results Inft User - 04/06/2020 10:43 [...] small bowel and issimilar to prior radiographs. Pringle project over the midline in the lowerabdomen.IMPRESSIONLarge volume pneumoperitoneum.Continued gaseous distention and dilatation of the stomach and small bowelfollowing total colectomy with ileoanal anastomosis may representpostoperative ileus.Findings regarding pneumoperitoneum were already communicated to [facility].Preliminary Report Dictated by Resident: Bart Klein reviewed this study and agree.Weston Damon MD., have reviewed this study andagree with theabove report. [facility] Screen - ONCE [id number] 15:18:48 Test Item Value Reference Range Interpretation Comments ABO & RH (test code O POSITIVE Performe d at [facility] = 20) [facility] [address] [place] [address] s [id number] Free: [phone] A No. [id number] IAT (test code = Negative Performed a t [facility] 1185) [facility] [address] [place] [address] s 319[address]Nlsg Free: [phone] A No. [id number] [facility] CHEST 1 [id number] 15:09:51 1. ?Interval development of a large [...] the midline and inferiorly beyondthe diaphragm and vvkce-qe-qjtg. Left diaphragm is elevated with interval development of large amount offree air noted under the diaphragms, better seen on concomitant abdominalx-ray. Lungs are clear without focal consolidation, pleural effusion orpneumothorax. The cardiomediastinal silhouette is stable. ?No acute osseousabnormalities. [facility], Radiant Results Inft User - 04/06/2020 10:10 AM CDTEXAM: XR CHEST 1 VW 04/06/2020 8:14 AMHISTORY: 50 years-old Male with [place]'s syndrome, complicated GI surgicalhistory, colonic ileus/inertia, evaluate for new hypotension COMPARISON: 03/30/2020, and CT abdomen and pelvis with contrast from 03/30/2020TECHNIQUE: AP viewof the chest.FINDINGS:Lines/tubes: Enteric tube courses over the midline and inferiorly beyondthe diaphragm and opceo-ad-flkf. Left diaphragm is elevated with interval development [...] and agree with theabovereport.[facility] [id number] 14:52:37Ana Syed MD ? ? 04/06/2020 ?9:53 [...] tolerated procedure well with no complications ? [facility] [id number] 14:52:37Ana Syed MD ? ? 04/06/2020 ?9:53 [...] tolerated procedure well with no complications ? [facility] [id number] 14:51:Ana Blair MD ? ? 04/06/2020 ?9:52 AM Arterial Line Date/Time: 04/06/2020 9:21 AMPerformed by: Ana Syed MD Arterial Line Placement: ?Ultrasound-Guided: ultrasound guided ? ?Patient Location: ?OR ?Indication: continuous blood pressure monitoring and blood sampling needed ?Staff: ?Supervising Anesthesiologist: ?Cynthia Herring MD ?Resident: ?Ana Syed, [facility]: ?Catheter Size: ?20 gauge ?Catheter Length: ?1 and 3/4 inch ?Catheter Type: ?Arrow ?Seldinger Technique?: No ? ?Laterality: ?Right ?Site: ?Radial artery ?Line Secured: ?Biopatch, Tegaderm andtape ?Preparation: ?Chloroprep, drape, sterile gloves, guidewire removed intact and biopatch appliedEvents: ?Events: ?Patient tolerated procedure well with no complications and all wires accounted for _ [facility] [id number] 14:51:Ana Blair MD ? ? 04/06/2020 ?9:52 AM Arterial [...] complications and all wires accounted for _ [facility] WITH [id number] 13:22:00 Test Item Value Reference Range Interpretation Comments WBC (test code = See_Comment LL [Automated 9742-2) message] The system which generated this result transmitted reference range : 4.20 - 10.70 10*3/?L. The reference range was not used to interpret this result as normal/abnormal . RBC (test code = See_Comment [Automated 644-8) message] The system which generated this result [...] RDW-SD (test code = 47.8 fL 38.5-51.6 65357-2) RDW-CV (test code = 14.6 % 12.1-15.4 788-0) PLT (test code = See_Comment [Automated 777-3) message] The system which generated this result transmitted reference range : 150 - 328 10*3/?L. The reference range was not used to interpret this result as normal/abnormal . MPV (test code = 12.1 fL 9.8-13 65271-4) NRBC/100 WBC (test See_Comment [Automat ed code = 8689649067) message] The system which generated this result transmitted reference range : 0.0 - 10.0 /100 WBCs. The reference range was not used to interpret this result as normal/abnormal . NRBC x10^3 (test code <0.01 See_Comment [Auto mated = 4771589769) message] The system which generated this result transmitted reference range : 10*3/?L. The reference range was not used to interpret this result as normal/abnormal . GRAN MAT (NEUT) % 71.6 % (test code = 770-8) IMM GRAN % (test code 0.90 % = 0598719782) LYMPH % (test code = 18.3 % 736-9) MONO % (test code = 9.2 % 5905-5) EOS % (test code = 0.0 % 713-8) BASO % (test code = 0.0 % 706-2) GRAN MAT x10^3(ANC) 0.78 10*3/uL 1.99-6.95 L (test code = 3708120097) IMM GRAN x10^3 (test <0.03 0-0.06 code = 9007959574) LYMPH x10^3 (test 0.20 10*3/uL 1.09-3.23 L code = 731-0) MONO x10^3 (test code 0.10 10*3/uL 0.36-1.02 L = 742-7) EOS x10^3 (test code <0.03 0.06-0.53 L = 711-2) BASO x10^3 (test code <0.03 0.01-0.09 = 704-7) GOLDEN CELLS (test code 2+ See_Comment A [Auto mated = 0446-9) message] The system which generated this result transmitted reference range : (none). The reference range was not used to interpret this result as normal/abnormal . BANDS (test code = MARKED INCREASED A 2406907121) Lab Interpretation Abnormal (test code = 19524-2) [facility] METABOLIC PANEL (NA, K, CL, CO2, GLUCOSE, BUN, CREATININE, CA)2020-04-06 12:38:00 Test Item Value Reference Range Interpretation Comments NA (test code = 134 mmol/L 135-145 L 0988745194) K (test code = 4.5 mmol/L 3.5-5 1629558506) CL (test code = 105 mmol/L 98-108 8597195204) CO2 TOTAL (test code = 18 mmol/L 23-31 L 7737933597) AGAP (test code = 2-16 6485897664) BUN (test code = 30 mg/dL 7-23 H 2401992607) GLUCOSE (test code = 117 mg/dL 70-110 H 3566048555) CREATININE (test code = 1.95 mg/dL 0.6-1.25 H 4475928047) CALCIUM (test code = 8.6 mg/dL 8.6-10.6 3508648133) eGFR Calculation mL/min/1.73m2 (Non-) (test code = 3761266387) eGFR Calculation mL/min/1.73m2 () (test code = 8441770009) GILBERTO (test code = GILBERTO) Association of [...] tests). Lab Interpretation Abnormal (test code = 80676-1) [facility]2020-08-14 12:38:00 Test Item Value Reference Range Interpretation Comments MAGNESIUM (test code = 8691871769) 2.3 mg/dL 1.7-2.4 Lab Interpretation (test code = Normal 41041-1) [facility] [id number] 23:28:32 Prominent gaseous distention of small bowel [...] pelvis. Note: Left hemidiaphragm isnot fully within tsvei-rb-htkv. FINDINGS: Status post colectomy. Massive gaseous distention [...] and pelvis.Note: Left hemidiaphragm isnot fully within npziu-tm-icog.FINDINGS:Status post colectomy.Massive gaseous distention of the stomach [...] with theabove report. [facility] [id number] 23:22:45 Esophogastric tube tip projects over the [...] Bilateralhemidiaphragms and upper abdomen are not within arnih-ug-eiwn. FINDINGS: The tipof the esophogastric tube projects [...] Bilateralhemidiaphragms and upper abdomen are not within cjiru-on-chzf.FINDINGS:The tip of the esophogastric tube projects over [...] agree with theabove report.[facility] (NA, K, CL, CO2, GLUCOSE, BUN, CREATININE, CA)2020-04-05 11:08:00 Test Item Value Reference Range Interpretation Comments NA (test code = 137 mmol/L 135-145 6104302518) K (test code = 4.4 mmol/L 3.5-5 2395485870) CL (test code = 104 mmol/L 98-108 9400951908) CO2 TOTAL (test code = 24 mmol/L 23-31 8872477610) AGAP (test code = 2-16 8892600619) BUN (test code = 10 mg/dL 7-23 1765227845) GLUCOSE (test code = 104 mg/dL 70-110 2306378699) CREATININE (test code 1.18 mg/dL 0.6-1.25 = 2427755871) CALCIUM (test code = 8.7 mg/dL 8.6-10.6 9759928706) eGFR Calculation mL/min/1.73m2 (Non-) (test code = 4327851993) eGFR Calculation mL/min/1.73m2 () (test code = 5350729109) GILBERTO (test code = GILBERTO) Association of [...] in imaging tests). [facility]2020-08-13 11:08:00 Test Item Value Reference Range Interpretation Comments MAGNESIUM (test code = 5773164291) 2.3 mg/dL 1.7-2.4 Lab Interpretation (test code = Normal 38090-3) [facility] WITH [id number] 10:32:00 Test Item Value Reference Range Interpretation [...] RDW-SD (test code = 47.8 fL 38.5-51.6 84350-6) RDW-CV (test code = 14.6 % 12.1-15.4 788-0) PLT (test code = See_Comment [Automated 777-3) message] The sy stem which generated this result transmitted reference range : 150 - 328 10*3/ ?L. The reference r meredith was not used to interpret this result as normal/abnormal . MPV (test code = 11.6 fL 9.8-13 98982-4) NRBC/100 WBC (test See_Comment [Automat ed code = 1475445948) message] The system which generated this result transmitted reference range : 0.0 - 10.0 /100 WBCs. The refer ence range was not u sed to interpret th is result as normal/abnormal . NRBC x10^3 (test code <0.01 See_Comment [Auto mated = 3411255594) message] The s ystem which generated this result transmitted reference range : 10*3/?L. The reference range was not used to interpret this result as normal/abnormal . GRAN MAT (NEUT) % 82.4 % (test code = 770-8) IMM GRAN % (test code 0.30 % = 3972358551) LYMPH % (test code = 12.4 % 736-9) MONO % (test code = 4.5 % 5905-5) EOS % (test code = 0.2 % 713-8) BASO % (test code = 0.2 % 706-2) GRAN MAT x10^3(ANC) 5.12 10*3/uL 1.99-6.95 (test code = 7530655466) IMM GRAN x10^3 (test <0.03 0-0.06 code = 9782613244) LYMPH x10^3 (test code 0.77 10*3/uL 1.09-3.23 L = 731-0) MONO x10^3 (test code 0.28 10*3/uL 0.36-1.02 L = 742-7) EOS x10^3 (test code = <0.03 0.06-0.53 L 711-2) BASO x10^3 (test code <0.03 0.01-0.09 = 704-7) Lab Interpretation Abnormal (test code = 44306-9) [facility] METABOLIC PANEL (NA, K, CL, CO2, GLUCOSE, BUN, CREATININE, CA)2020-04-04 11:02:00 Test Item Value Reference Range Interpretation Comments NA (test code = 135 mmol/L 135-145 5980458363) K (test code = 4.4 mmol/L 3.5-5 Slight 3388087497) hemolysis CL (test code = 103 mmol/L 98-108 9850384705) CO2 TOTAL (test code 26 mmol/L 23-31 = 5040294301) AGAP (test code = 2-16 9864769832) BUN (test code = 7 mg/dL 7-23 Slight 3578631253) hemolysis GLUCOSE (test code = 119 mg/dL 70-110 H 4674671845) CREATININE (test code 0.95 mg/dL 0.6-1.25 = 5132016179) CALCIUM (test code = 8.3 mg/dL 8.6-10.6 L 2455019452) eGFR Calculation mL/min/1.73m2 (Non-) (test code = 3021209881) eGFR Calculation mL/min/1.73m2 () (test code = 9531376446) GILBERTO (test code = GILBERTO) Association of [...] tests). Lab Interpretation Abnormal (test code = 02228-0) [facility]2020-08-12 11:02:00 Test Item Value Reference Range Interpretation Comments MAGNESIUM (test code = 6003470327) 1.7 mg/dL 1.7-2.4 Lab Interpretation (test code = Normal 31649-2) [facility] WITH [id number] 10:31:00 Test Item Value Reference Range Interpretation [...] RDW-SD (test code = 46.5 fL 38.5-51.6 31531-8) RDW-CV (test code = 14.3 % 12.1-15.4 788-0) PLT (test code = See_Comment L [Automated 777-3) message] The sy stem which generated this result transmitted reference range : 150 - 328 10*3/ ?L. The reference r meredith was not used to interpret this result as normal/abnormal . MPV (test code = 11.2 fL 9.8-13 98660-4) NRBC/100 WBC (test See_Comment [Automat ed code = 0194814486) message] The system which generated this result transmitted reference range : 0.0 - 10.0 /100 WBCs. The refer ence range was not u sed to interpret th is result as normal/abnormal . NRBC x10^3 (test code <0.01 See_Comment [Auto mated = 7613521722) message] The s ystem which generated this result transmitted reference range : 10*3/?L. The reference range was not used to interpret this result as normal/abnormal . GRAN MAT (NEUT) % 76.7 % (test code = 770-8) IMM GRAN % (test code 0.30 % = 9132018062) LYMPH % (test code = 16.4 % 736-9) MONO % (test code = 6.2 % 5905-5) EOS % (test code = 0.2 % 713-8) BASO % (test code = 0.2 % 706-2) GRAN MAT x10^3(ANC) 5.12 10*3/uL 1.99-6.95 (test code = 8349411658) IMM GRAN x10^3 (test <0.03 0-0.06 code = 2777076049) LYMPH x10^3 (test code 1.09 10*3/uL 1.09-3.23 = 731-0) MONO x10^3 (test code 0.41 10*3/uL 0.36-1.02 = 742-7) EOS x10^3 (test code = <0.03 0.06-0.53 L 711-2) BASO x10^3 (test code <0.03 0.01-0.09 = 704-7) Lab Interpretation Abnormal (test code = 00550-0) [facility] WITH [id number] 11:04:00 Test Item Value Reference Range Interpretation [...] RDW-SD (test code = 45.6 fL 38.5-51.6 46102-6) RDW-CV (test code = 14.0 % 12.1-15.4 788-0) PLT (test code = See_Comment L [Automated 777-3) message] The sy stem which generated this result transmitted reference range : 150 - 328 10*3/ ?L. The reference r meredith was not used to interpret this result as normal/abnormal . MPV (test code = 11.2 fL 9.8-13 08935-2) NRBC/100 WBC (test See_Comment [Automat ed code = 8779307043) message] The system which generated this result transmitted reference range : 0.0 - 10.0 /100 WBCs. The refer ence range was not u sed to interpret th is result as normal/abnormal . NRBC x10^3 (test code <0.01 See_Comment [Auto mated = 7453562446) message] The s ystem which generated this result transmitted reference range : 10*3/?L. The reference range was not used to interpret this result as normal/abnormal . GRAN MAT (NEUT) % 52.7 % (test code = 770-8) IMM GRAN % (test code 0.30 % = 9461169203) LYMPH % (test code = 34.6 % 736-9) MONO % (test code = 9.6 % 5905-5) EOS % (test code = 2.2 % 713-8) BASO % (test code = 0.6 % 706-2) GRAN MAT x10^3(ANC) 1.88 10*3/uL 1.99-6.95 L (test code = 1630928666) IMM GRAN x10^3 (test <0.03 0-0.06 code = 2444641374) LYMPH x10^3 (test code 1.23 10*3/uL 1.09-3.23 = 731-0) MONO x10^3 (test code 0.34 10*3/uL 0.36-1.02 L = 742-7) EOS x10^3 (test code = 0.08 10*3/uL 0.06-0.53 711-2) BASO x10^3 (test code <0.03 0.01-0.09 = 704-7) REACT LYMPHS (test Rare code = 9047085008) Lab Interpretation Abnormal (test code = 77531-7) [facility] METABOLIC PANEL (NA, K, CL, CO2, GLUCOSE, BUN, CREATININE, CA)2020-04-03 10:54:00 Test Item Value Reference Range Interpretation Comments NA (test code = 140 mmol/L 135-145 3723812078) K (test code = 3.9 mmol/L 3.5-5 3482660067) CL (test code = 107 mmol/L 98-108 7373803438) CO2 TOTAL (test code = 28 mmol/L 23-31 9132279827) AGAP (test code = 2-16 6798844303) BUN (test code = 4 mg/dL 7-23 L 8570712813) GLUCOSE (test code = 88 mg/dL 70-110 1546691025) CREATININE (test code = 0.96 mg/dL 0.6-1.25 7648721793) CALCIUM (test code = 8.6 mg/dL 8.6-10.6 8035726013) eGFR Calculation mL/min/1.73m2 (Non-) (test code = 8179274907) eGFR Calculation mL/min/1.73m2 () (test code = 8723753405) GILBERTO (test code = GILBERTO) Association of [...] tests). Lab Interpretation Abnormal (test code = 70141-8) [facility] Test Item Value Reference Range Interpretation Comments MAGNESIUM (test code = 1856654412) 2.0 mg/dL 1.7-2.4 Lab Interpretation (test code = Normal 23594-1) [facility] AreaType and Screen - ONCE [id number] 23:40:25 Test Item Value Reference Range Interpretation Comments ABO & RH (test code O POSITIVE Performe d at [facility] = 20) [facility] [address] [facility] [address]Ivbi Free: [phone] A No. [id number] IAT (test code = Negative Performed a t [facility] 1185) [facility] [address] [facility] [address]Kqfn Free: [phone] A No. [id number] [facility] AreaCBC WITH [id number] 11:21:00 Test Item Value Reference Range Interpretation Comments WBC (test code = See_Comment L [Automated 6690-2) message] The sy stem which generated this result transmitted reference range : 4.20 - 10.70 10*3/?L. The reference range was not used to interpret this result as normal/abnormal . RBC (test code = See_Comment L [Automated 959-8) message] The sy stem which generated this [...] RDW-SD (test code = 45.8 fL 38.5-51.6 00601-1) RDW-CV (test code = 14.2 % 12.1-15.4 788-0) PLT (test code = See_Comment L [Automated 777-3) message] The sy stem which generated this result transmitted reference range : 150 - 328 10*3/ ?L. The reference r meredith was not used to interpret this result as normal/abnormal . MPV (test code = 10.6 fL 9.8-13 30642-4) NRBC/100 WBC (test See_Comment [Automat ed code = 0112174604) message] The system which generated this result transmitted reference range : 0.0 - 10.0 /100 WBCs. The refer ence range was not u sed to interpret th is result as normal/abnormal . NRBC x10^3 (test code <0.01 See_Comment [Auto mated = 6840888920) message] The s ystem which generated this result transmitted reference range : 10*3/?L. The reference range was not used to interpret this result as normal/abnormal . GRAN MAT (NEUT) % 46.4 % (test code = 770-8) IMM GRAN % (test code 0.30 % = 0979620163) LYMPH % (test code = 38.8 % 736-9) MONO % (test code = 10.5 % 5905-5) EOS % (test code = 3.3 % 713-8) BASO % (test code = 0.7 % 706-2) GRAN MAT x10^3(ANC) 1.41 10*3/uL 1.99-6.95 L (test code = 9202460099) IMM GRAN x10^3 (test <0.03 0-0.06 code = 0158319199) LYMPH x10^3 (test code 1.18 10*3/uL 1.09-3.23 [...] . Lab Interpretation Abnormal (test code = 14265-4) [facility] METABOLIC PANEL (NA, K, CL, CO2, GLUCOSE, BUN, CREATININE, CA)2020-04-02 11:05:00 Test Item Value Reference Range Interpretation Comments NA (test code = 139 mmol/L 135-145 6507983337) K (test code = 4.0 mmol/L 3.5-5 8860745817) CL (test code = 108 mmol/L 98-108 2466035655) CO2 TOTAL (test code = 25 mmol/L 23-31 6890057104) AGAP (test code = 2-16 3900410999) BUN (test code = 6 mg/dL 7-23 L 8249252354) GLUCOSE (test code = 99 mg/dL 70-110 2808106070) CREATININE (test code = 0.92 mg/dL 0.6-1.25 0625358492) CALCIUM (test code = 8.3 mg/dL 8.6-10.6 L 6739544596) eGFR Calculation mL/min/1.73m2 (Non-) (test code = 8547541486) eGFR Calculation mL/min/1.73m2 () (test code = 9671702719) GILBERTO (test code = GILBERTO) Association of [...] tests). Lab Interpretation Abnormal (test code = 49565-2) [facility]2020-08-10 11:05:00 Test Item Value Reference Range Interpretation Comments MAGNESIUM (test code = 0064847474) 2.0 mg/dL 1.7-2.4 Lab Interpretation (test code = Normal 24131-5) [facility]OVID[facility] (ID NOW RAPID TESTING)2020-04-02 00:43:00 Test Item Value Reference Range Interpretation Comments SARS-CoV-2 Rapid ID NOW Not Detected Not Detected (test code = 44238-1) GILBERTO (test code = GILBERTO) ID NOW COVID-19 Assay is an isothermal nucleic acid amplification test intended for the qualitative detection of nucleic acid from SARS-CoV-2 viral RNA in nasopharyngeal (COATER SMOKING PIPE) specimens. It is used under Emergency Use [...] indicated. Lab Interpretation Normal (test code = 59183-6) [facility] AreaUrinalysis2020-08-08 11:39:00 Test Item Value Reference Range Interpretation Comments APPEARANCE (test code = Hazy Clear A 1319439206) COLOR (test code = Yellow Yellow 0002024197) PH (test code = 4.8-8.0 8612216998) SP GRAVITY (test code = 1.003-1.030 H 7985002185) GLU U QUAL (test code = Normal Normal 7994258522) BLOOD (test code = Negative Negative 8121628012) KETONES (test code = 5 mg/dL Negative A 4034096253) PROTEIN (test code = Negative Negative 2887-8) UROBILIN (test code = 2.0 mg/dL Normal A 1371902297) BILIRUBIN (test code = Negative Negative 7614320720) NITRITE (test code = Negative Negative 2033378767) LEUK ROGER (test code = Negative Negative 3344047341) RBC/HPF (test code = See_Comment [Autom ated message] 6138068139) The system [email or web address] generated this result transmit dain reference range : 0 - 3 HPF. The refe rence range was not u sed to interpret th is result as normal/abnormal . WBC/HPF (test code = See_Comment [Autom ated message] 1223159059) The system [email or web address] generated this result transmit dain reference range : 0 - 5 HPF. The refe rence range was not u sed to interpret th is result as normal/abnormal . BACTERIA (test code = Negative Negative 4045749655) CA OXALATE (test code = See_Comment H [Au tomated message] 8502047232) The system [email or web address] generated this result transmit dain reference range : <=1 HPF. The refere nce range was not u sed to interpret th is result as normal/abnormal . Lab Interpretation (test Abnormal code = 85854-2) [facility] AreaCT ABDOMEN PELVIS W [id number] 00:38:37 1. ?Massive air distention of the [...] RL: 460 END OF REPORT ORDERING PHYSICIAN: COYE LOPEZ CLINICAL INFORMATION: ? Nausea, vomiting Bowelobstruction, [...] focal loculated drainable fluidcollection.RL: 460END OF REPORT [facility] (NA, K, CL, CO2, GLUCOSE, BUN, CREATININE, CA)2020-03-30 23:45:00 Test Item Value Reference Range Interpretation Comments NA (test code = 140 mmol/L 135-145 0628950580) K (test code = 4.3 mmol/L 3.5-5 4370998010) CL (test code = 101 mmol/L 98-108 0953335832) CO2 TOTAL (test code = 28 mmol/L 23-31 0856531644) AGAP (test code = 2-16 6690601588) BUN (test code = 24 mg/dL 7-23 H 6744613372) GLUCOSE (test code = 90 mg/dL 70-110 4232003539) CREATININE (test code = 1.29 mg/dL 0.6-1.25 H 8007767500) CALCIUM (test code = 9.4 mg/dL 8.6-10.6 4427043444) eGFR Calculation mL/min/1.73m2 (Non-) (test code = 3430458550) eGFR Calculation mL/min/1.73m2 () (test code = 8872124458) GILBERTO (test code = GILBERTO) Association of [...] tests). Lab Interpretation Abnormal (test code = 08676-9) [facility] 1 [id number] 23:00:46 No evidence for an acute cardiopulmonary [...] 2020 exam.RL: 3708 [facility]Tressent[facility] [id number] 22:39:00 Test Item Value Reference Range Interpretation Comments TROPONIN I (test 0.008 ng/mL See_Comment [Automated code = 8554574162) message] The system which generated this result [...] ? Lab Interpretation Normal (test code = 23559-8) [facility] AreaN-TERMINAL [id number] 22:39:00 Test Item Value Reference Range Interpretation Comments NT-proBNP (test code 42 pg/mL See_Comment [Autom ated = 5833214047) message] The system which generated this result transmitted reference range : <=125. The reference range was not used to interpret this result as normal/abnormal . GILBERTO (test code = GILBERTO) Biotin has been reported to cause a negative bias, interpret results relative to patient's use of biotin. Lab Interpretation Normal (test code = 14640-8) [facility] AreaHepatic Function Panel (ALB, T.PRO, BILI T, BU/BC, ALT, AST, ALK PHOS)2020-03-30 22:27:00 Test Item Value Reference Range Interpretation Comments TOTAL BILI (test code = 0016435963) 0.5 mg/dL 0.1-1.1 BILI UNCON (test code = 4888222818) 0.3 mg/dL 0.1-1.1 BILI CONJ (test code = 4482350050) 0.0 mg/dL 0-0.3 T PROTEIN (test code = 6954567613) 6.7 g/dL 6.3-8.2 ALBUMIN (test code = 5158210298) 4.5 g/dL 3.5-5 ALK PHOS (test code = 8240970546) 57 U/L 34-122 ALTv (test code = 1742-6) 31 U/L 5-50 AST(SGOT) (test code = 4040261031) 38 U/L 13-40 Lab Interpretation (test code = Normal 29558-9) [facility] AreaLipase [id number] 22:27:00 Test Item Value Reference Range Interpretation Comments LIPASE (test code = 9169136397) 62 U/L 0-220 Lab Interpretation (test code = Normal 94663-6) [facility] AreaaPTT2020-08-07 22:25:00 Test Item Value Reference Range Interpretation Comments APTT Patient (test code = See_Comment [ Automated message] 3173-2) The system [email or web address] generated this result transmitted ref erence range: 26 - 36 Seconds. The re ference range was not u sed to interpret this result as normal/abnor mal. Lab Interpretation (test Normal code = 15624-1) [facility] AreaProthrombin Time (PT) / [id number] 22:25:00 Test Item Value Reference Range Interpretation [...] tions. Lab Interpretation (test Normal code = 17406-7) [facility] with [id number] 22:17:00 Test Item Value Reference Range Interpretation [...] RDW-SD (test code = 46.9 fL 38.5-51.6 47367-1) RDW-CV (test code = 14.3 % 12.1-15.4 788-0) PLT (test code = See_Comment [Automated 777-3) message] The sy stem which generated this result transmitted reference range : 150 - 328 10*3/ ?L. The reference r meredith was not used to interpret this result as normal/abnormal . MPV (test code = 10.7 fL 9.8-13 36742-9) NRBC/100 WBC (test See_Comment [Automat ed code = 2421219256) message] The system which generated this result transmitted reference range : 0.0 - 10.0 /100 WBCs. The refer ence range was not u sed to interpret th is result as normal/abnormal . NRBC x10^3 (test code <0.01 See_Comment [Auto mated = 8335986972) message] The s ystem which generated this result transmitted reference range : 10*3/?L. The reference range was not used to interpret this result as normal/abnormal . GRAN MAT (NEUT) % 51.7 % (test code = 770-8) IMM GRAN % (test code 0.40 % = 7232726496) LYMPH % (test code = 32.8 % 736-9) MONO % (test code = 12.4 % 5905-5) EOS % (test code = 2.1 % 713-8) BASO % (test code = 0.6 % 706-2) GRAN MAT x10^3(ANC) 2.76 10*3/uL 1.99-6.95 (test code = 1248778317) IMM GRAN x10^3 (test <0.03 0-0.06 code = 8630900239) LYMPH x10^3 (test code 1.75 10*3/uL 1.09-3.23 = 731-0) MONO x10^3 (test code 0.66 10*3/uL 0.36-1.02 = 742-7) EOS x10^3 (test code = 0.11 10*3/uL 0.06-0.53 711-2) BASO x10^3 (test code 0.03 10*3/uL 0.01-0.09 = 704-7) Lab Interpretation Abnormal (test code = 53660-6) [facility] with [id number] 10:26:00 Test Item Value Reference Range Interpretation [...] RDW-SD (test code = 46.3 fL 38.5-51.6 94160-7) RDW-CV (test code = 14.2 % 12.1-15.4 788-0) PLT (test code = See_Comment L [Automated 777-3) message] The sy stem which generated this result transmitted reference range : 150 - 328 10*3/ ?L. The reference r meredith was not used to interpret this result as normal/abnormal . MPV (test code = 10.6 fL 9.8-13 94492-6) NRBC/100 WBC (test See_Comment [Automat ed code = 7160327920) message] The system which generated this result transmitted reference range : 0.0 - 10.0 /100 WBCs. The refer ence range was not u sed to interpret th is result as normal/abnormal . NRBC x10^3 (test code <0.01 See_Comment [Auto mated = 4077119534) message] The s ystem which generated this result transmitted reference range : 10*3/?L. The reference range was not used to interpret this result as normal/abnormal . GRAN MAT (NEUT) % 51.3 % (test code = 770-8) IMM GRAN % (test code 0.30 % = 0536721899) LYMPH % (test code = 32.2 % 736-9) MONO % (test code = 12.7 % 5905-5) EOS % (test code = 3.0 % 713-8) BASO % (test code = 0.5 % 706-2) GRAN MAT x10^3(ANC) 1.89 10*3/uL 1.99-6.95 L (test code = 4739103463) IMM GRAN x10^3 (test <0.03 0-0.06 code = 4768001714) LYMPH x10^3 (test code 1.19 10*3/uL 1.09-3.23 = 731-0) MONO x10^3 (test code 0.47 10*3/uL 0.36-1.02 = 742-7) EOS x10^3 (test code = 0.11 10*3/uL 0.06-0.53 711-2) BASO x10^3 (test code <0.03 0.01-0.09 = 704-7) Lab Interpretation Abnormal (test code = 11566-5) [facility] AreaMagnesium [id number] 10:17:00 Test Item Value Reference Range Interpretation Comments MAGNESIUM (test code = 8864683838) 2.0 mg/dL 1.7-2.4 Lab Interpretation (test code = Normal 14135-9) [facility] (NA, K, CL, CO2, GLUCOSE, BUN, CREATININE, CA)2020-03-26 10:17:00 Test Item Value Reference Range Interpretation Comments NA (test code = 136 mmol/L 135-145 1122326969) K (test code = 4.6 mmol/L 3.5-5 Slight 9610854289) hemolysis CL (test code = 109 mmol/L 98-108 H 2110432308) CO2 TOTAL (test code 26 mmol/L 23-31 = 4548101197) AGAP (test code = 2-16 L 1653946955) BUN (test code = 22 mg/dL 7-23 Slight 9854684363) hemolysis GLUCOSE (test code = 82 mg/dL 70-110 8114949131) CREATININE (test code 0.88 mg/dL 0.6-1.25 = 7366207455) CALCIUM (test code = 8.1 mg/dL 8.6-10.6 L 2353453471) eGFR Calculation mL/min/1.73m2 (Non-) (test code = 0621349886) eGFR Calculation mL/min/1.73m2 () (test code = 9922816045) GILBERTO (test code = GILBERTO) Association of [...] tests). Lab Interpretation Abnormal (test code = 02322-8) [facility] AreaLactic Acid Whole [id number] 04:22:00 Test Item Value Reference Range Interpretation Comments LACTIC ACID (test code = 1.52 mmol/L 1556572367) [facility] AreaPhosphorus [id number] 03:37:00 Test Item Value Reference Range Interpretation Comments PHOSPHORUS (test code = 9848296607) 4.6 mg/dL 2.5-5 Lab Interpretation (test code = Normal 19606-8) [facility] AreaMAGNESIUM2020-08-03 03:37:00 Test Item Value Reference Range Interpretation Comments MAGNESIUM (test code = 1965261994) 2.3 mg/dL 1.7-2.4 Lab Interpretation (test code = Normal 18627-3) [facility] AreaCOVID-19 (ID NOW RAPID TESTING)2020-03-26 02:24:00 Test Item Value Reference Range Interpretation Comments SARS-CoV-2 Rapid ID NOW Not Detected Not Detected (test code = 72175-8) GILBERTO (test code = GILBERTO) ID NOW COVID-19 Assay is an isothermal nucleic acid amplification test intended for the qualitative detection of nucleic acid from SARS-CoV-2 viral RNA in nasopharyngeal (COATER SMOKING PIPE) specimens. It is used under Emergency Use [...] indicated. Lab Interpretation Normal (test code = 84980-9) [facility] AreaCT ABDOMEN PELVIS W [id number] 01:33:06 Redemonstration of severe dilatation of the [...] No focal bowel inflammation or wall thickening.. [facility] (NA, K, CL, CO2, GLUCOSE, BUN, CREATININE, CA)2020-03-26 00:57:00 Test Item Value Reference Range Interpretation Comments NA (test code = 139 mmol/L 135-145 2637261905) K (test code = 4.4 mmol/L 3.5-5 6585825412) CL (test code = 105 mmol/L 98-108 5763768395) CO2 TOTAL (test code = 29 mmol/L 23-31 6865933391) AGAP (test code = 2-16 9189763253) BUN (test code = 28 mg/dL 7-23 H 9595757615) GLUCOSE (test code = 84 mg/dL 70-110 3732498128) CREATININE (test code = 1.19 mg/dL 0.6-1.25 0165242892) CALCIUM (test code = 8.9 mg/dL 8.6-10.6 2426341204) eGFR Calculation mL/min/1.73m2 (Non-) (test code = 2097686932) eGFR Calculation mL/min/1.73m2 () (test code = 4637490513) GILBERTO (test code = GILBERTO) Association of [...] tests). Lab Interpretation Abnormal (test code = 33864-7) [facility] (ALB, T.PRO, BILI T, BU/BC, ALT, AST, ALK PHOS)2020-03-26 00:57:00 Test Item Value Reference Range Interpretation Comments TOTAL BILI (test code = 3984654187) 0.2 mg/dL 0.1-1.1 BILI UNCON (test code = 3841925802) 0.0 mg/dL 0.1-1.1 L BILI CONJ (test code = 3651094176) 0.0 mg/dL 0-0.3 T PROTEIN (test code = 7719805986) 6.2 g/dL 6.3-8.2 L ALBUMIN (test code = 9829164427) 4.1 g/dL 3.5-5 ALK PHOS (test code = 2205146933) 56 U/L 34-122 ALTv (test code = 1742-6) 24 U/L 5-50 AST(SGOT) (test code = 9595757354) 28 U/L 13-40 Lab Interpretation (test code = Abnormal 79562-4) [facility] with Zlscqyqqupzr2089-65-38 00:47:00 Test Item Value Reference Range Interpretation [...] RDW-SD (test code = 45.9 fL 38.5-51.6 48307-8) RDW-CV (test code = 14.0 % 12.1-15.4 788-0) PLT (test code = See_Comment [Automated 777-3) message] The sy stem which generated this result transmitted reference range : 150 - 328 10*3/ ?L. The reference r meredith was not used to interpret this result as normal/abnormal . MPV (test code = 10.9 fL 9.8-13 46233-4) NRBC/100 WBC (test See_Comment [Automat ed code = 7036678245) message] The system which generated this result transmitted reference range : 0.0 - 10.0 /100 WBCs. The refer ence range was not u sed to interpret th is result as normal/abnormal . NRBC x10^3 (test code <0.01 See_Comment [Auto mated = 9274096055) message] The s ystem which generated this result transmitted reference range : 10*3/?L. The reference range was not used to interpret this result as normal/abnormal . GRAN MAT (NEUT) % 49.8 % (test code = 770-8) IMM GRAN % (test code 0.20 % = 9671076460) LYMPH % (test code = 32.0 % 736-9) MONO % (test code = 14.3 % 5905-5) EOS % (test code = 3.0 % 713-8) BASO % (test code = 0.7 % 706-2) GRAN MAT x10^3(ANC) 2.29 10*3/uL 1.99-6.95 (test code = 2591884772) IMM GRAN x10^3 (test <0.03 0-0.06 code = 3719669578) LYMPH x10^3 (test code 1.47 10*3/uL 1.09-3.23 = 731-0) MONO x10^3 (test code 0.66 10*3/uL 0.36-1.02 = 742-7) EOS x10^3 (test code = 0.14 10*3/uL 0.06-0.53 711-2) BASO x10^3 (test code 0.03 10*3/uL 0.01-0.09 = 704-7) Lab Interpretation Abnormal (test code = 58152-2) [facility] Area[facility]esium [id number] 05:23:00 Test Item Value Reference Range Interpretation Comments MAGNESIUM (test code = 9629549044) 2.1 mg/dL 1.7-2.4 Lab Interpretation (test code = Normal 62949-2) [facility]OVID[facility] (ID NOW RAPID TESTING)2020-03-03 04:45:00 Test Item Value Reference Range Interpretation Comments SARS-CoV-2 Rapid ID NOW Not Detected Not Detected (test code = 39881-3) GILBERTO (test code = GILBERTO) ID NOW COVID-19 Assay is an isothermal nucleic acid amplification test intended for the qualitative detection of nucleic acid from SARS-CoV-2 viral RNA in nasopharyngeal (COATER SMOKING PIPE) specimens. It is used under Emergency Use [...] indicated. Lab Interpretation Normal (test code = 31086-1) [facility] AreaProthrombin Time / [id number] 04:40:00 Test Item Value Reference Range Interpretation Comments PROTIME PATIENT (test See_Comment [Auto mated message] code = 5964-2) The system [employer] generated this result transmitted ref erence range: 10.1 - 1 2.6 Seconds. The re ference range was not u sed to interpret this result as normal/abnor mal. INR (test code = 6301-6) Nor mal INR <1.1; Warfarin Therap eutic range 2.0 to 3. 0 or 2.5 to 3.5, dep ending upon the indica tions. Lab Interpretation (test Normal code = 42321-0) [facility] AreaaPTT2020-07-11 04:40:00 Test Item Value Reference Range Interpretation Comments APTT Patient (test code = See_Comment [ Automated message] 3173-2) The system [email or web address] generated this result transmitted ref erence range: 26 - 36 Seconds. The re ference range was not u sed to interpret this result as normal/abnor mal. Lab Interpretation (test Normal code = 57476-3) [facility] AreaPhosphorus [id number] 04:31:00 Test Item Value Reference Range Interpretation Comments PHOSPHORUS (test code = 0431962049) 4.0 mg/dL 2.5-5 Lab Interpretation (test code = Normal 82414-1) [facility] AreaXR ABDOMEN ACUTE [id number] 02:54:09 Impression: No radiographic evidence for acute cardiopulmonary disease. No radiographic evidence forpneumoperitoneum. Marked gaseous distention of predominantly large bowel loops in the abdomenand pelvis, similar to prior CT of 02/26/2020. On that CT, there was atransition in the distal descending colon, without mass lesion or definitesigmoid volvulus appreciated. RL: 460 AFC: 81243 Indication: Diffuse abdominal pain, obstructionComparison: CT the [...] lesion or definitesigmoid volvulus appreciated. RL: 460AF: [id number] signed by Angeli Carrillo MD, PhD at 03/02/2020 9:54 PM [facility] AreaUrinalysis2020-07-11 01:50:00 Test Item Value Reference Range Interpretation Comments APPEARANCE (test code = Hazy Clear A 1227112762) COLOR (test code = Tahira Yellow A 7122547352) PH (test code = 4.8-8.0 4233017554) SP GRAVITY (test code = 1.003-1.030 0325182397) GLU U QUAL (test code = Normal Normal 6053744292) BLOOD (test code = Negative Negative 4857382549) KETONES (test code = 5 mg/dL Negative A 5328504239) PROTEIN (test code = Negative Negative 2887-8) UROBILIN (test code = 2.0 mg/dL Normal A 8000181808) BILIRUBIN (test code = Negative Negative 1529925038) NITRITE (test code = Negative Negative 7245169776) LEUK ROGER (test code = Negative Negative 5881006425) RBC/HPF (test code = See_Comment [Autom ated message] 3149211742) The system [email or web address] generated this result transmit dain reference range : 0 - 3 HPF. The refe rence range was not u sed to interpret th is result as normal/abnormal . WBC/HPF (test code = See_Comment [Autom ated message] 2619209755) The system [email or web address] generated this result transmit dain reference range : 0 - 5 HPF. The refe rence range was not u sed to interpret th is result as normal/abnormal . BACTERIA (test code = Negative Negative 9644393009) MUCOUS (test code = Slight Negative LPF A 1209634779) SQ EPITH (test code = <1 See_Comment [Auto mated message] 8576132032) The system [email or web address] generated this result transmit dain reference range : <=2 HPF. The refere nce range was not u sed to interpret th is result as normal/abnormal . CA OXALATE (test code = See_Comment H [Au tomated message] 1281384375) The system [email or web address] generated this result transmit dain reference range : <=1 HPF. The refere nce range was not u sed to interpret th is result as normal/abnormal . SPERM (test code = See_Comment [Automat ed message] 6390873278) The system [email or web address] generated this result transmit dain reference range : <=1 HPF. The refere nce range was not u sed to interpret th is result as normal/abnormal . Lab Interpretation (test Abnormal code = 21820-7) [facility] Metabolic Panel (NA, K, CL, CO2, GLUCOSE, BUN, CREATININE, CA)2020-03-03 01:44:00 Test Item Value Reference Range Interpretation Comments NA (test code = 140 mmol/L 135-145 5146708261) K (test code = 4.1 mmol/L 3.5-5 2517139471) CL (test code = 106 mmol/L 98-108 9745183653) CO2 TOTAL (test code = 25 mmol/L 23-31 2230005831) AGAP (test code = 2-16 8071461795) BUN (test code = 17 mg/dL 7-23 8776342748) GLUCOSE (test code = 91 mg/dL 70-110 8260287998) CREATININE (test code 1.13 mg/dL 0.6-1.25 = 6437188472) CALCIUM (test code = 9.0 mg/dL 8.6-10.6 0348185414) eGFR Calculation mL/min/1.73m2 (Non-) (test code = 4381200936) eGFR Calculation mL/min/1.73m2 () (test code = 6050847662) GILBERTO (test code = GILBERTO) Association of [...] in imaging tests). [facility] Function Panel (ALB, T.PRO, BILI T, BU/BC, ALT, AST, ALK PHOS)2020-03-03 01:44:00 Test Item Value Reference Range Interpretation Comments TOTAL BILI (test code = 9629567178) 0.4 mg/dL 0.1-1.1 BILI UNCON (test code = 0655549757) 0.4 mg/dL 0.1-1.1 BILI CONJ (test code = 7248070426) 0.0 mg/dL 0-0.3 T PROTEIN (test code = 0694367221) 6.3 g/dL 6.3-8.2 ALBUMIN (test code = 1878294584) 4.2 g/dL 3.5-5 ALK PHOS (test code = 6821768042) 43 U/L 34-122 ALTv (test code = 1742-6) 20 U/L 5-50 AST(SGOT) (test code = 6623097815) 26 U/L 13-40 Lab Interpretation (test code = Normal 66452-4) [facility] WITH [id number] 01:37:00 Test Item Value Reference Range Interpretation [...] RDW-SD (test code = 45.0 fL 38.5-51.6 06491-7) RDW-CV (test code = 13.7 % 12.1-15.4 788-0) PLT (test code = See_Comment [Automated 777-3) message] The sy stem which generated this result transmitted reference range : 150 - 328 10*3/ ?L. The reference r meredith was not used to interpret this result as normal/abnormal . MPV (test code = 11.3 fL 9.8-13 09608-9) NRBC/100 WBC (test See_Comment [Automat ed code = 3425726482) message] The system which generated this result transmitted reference range : 0.0 - 10.0 /100 WBCs. The refer ence range was not u sed to interpret th is result as normal/abnormal . NRBC x10^3 (test code <0.01 See_Comment [Auto mated = 7676538439) message] The s ystem which generated this result transmitted reference range : 10*3/?L. The reference range was not used to interpret this result as normal/abnormal . GRAN MAT (NEUT) % 53.2 % (test code = 770-8) IMM GRAN % (test code 0.20 % = 3418341133) LYMPH % (test code = 34.5 % 736-9) MONO % (test code = 9.7 % 5905-5) EOS % (test code = 1.8 % 713-8) BASO % (test code = 0.6 % 706-2) GRAN MAT x10^3(ANC) 2.69 10*3/uL 1.99-6.95 (test code = 0647803211) IMM GRAN x10^3 (test <0.03 0-0.06 code = 8642147176) LYMPH x10^3 (test code 1.74 10*3/uL 1.09-3.23 = 731-0) MONO x10^3 (test code 0.49 10*3/uL 0.36-1.02 = 742-7) EOS x10^3 (test code = 0.09 10*3/uL 0.06-0.53 711-2) BASO x10^3 (test code 0.03 10*3/uL 0.01-0.09 = 704-7) Lab Interpretation Abnormal (test code = 11566-4) [facility] AreaLactic Acid Whole Skxto2656-77-63 01:28:00 Test Item Value Reference Range Interpretation Comments LACTIC ACID (test code = 1.62 mmol/L 9318076776) [facility] AreaDRUG PANEL 2 [id number] 22:13:00 Test Item Value Reference Range Interpretation Comments AMPHET (test code = Negative Negative 3569949481) LOS U (test code = Negative Negative 8681179482) BENZO U (test code = Negative Negative 6448888384) Cocaine Metabolite (test Negative Negative code = 0455215961) METHADONE (test code = Negative Negative 9890418423) OPIATES (test code = Negative Negative 3828807162) PCP (test code = Negative Negative 5760639705) THC (test code = Negative Negative 7136380359) GILBERTO (test code = GILBERTO) Urine Drug [...] testing). Lab Interpretation (test Normal code = 17517-8) [facility] AreaTHYROID STIMULATING [id number] 19:02:00 Test Item Value Reference Range Interpretation Comments TSH (test code = See_Comment [Automated message] 1247866655) The system [email or web address] generated this result transmitted ref erence range: 0.45 - 4 .70 mIU/L. The refe rence range was not u sed to interpret this result as normal/abnor mal. Lab Interpretation (test Normal code = 15894-1) [facility] [id number] 18:49:00 Test Item Value Reference Range Interpretation Comments FREE T3 (test code = 5985060823) 2.56 pg/mL 2.77-5.27 L Lab Interpretation (test code = Abnormal 91884-5) [facility] [id number] 18:49:00 Test Item Value Reference Range Interpretation Comments FREE T4 (test code = See_Comment [Autom ated message] 3204679466) The system [email or web address] generated this result transmitted ref erence range: 0.78 - 2 .20 ng/dL:. The ref erence range was not u sed to interpret this result as normal/abnor mal. Lab Interpretation (test Normal code = 37040-5) [facility] AreaCT ABDOMEN PELVIS W [id number] 20:56:47 Persistent marked severe dilatation of the [...] No focal hepatic lesions. Normal contour. Hepatomegaly, bmuerhxbb89.7 cm, in the craniocaudal dimension. Diffuse hypoattenuation [...] withthe above report. [facility] (ID NOW RAPID TESTING)2020-02-26 07:03:00 Test Item Value Reference Range Interpretation Comments SARS-CoV-2 Rapid ID NOW Not Detected Not Detected (test code = 66922-5) GILBERTO (test code = GILBERTO) ID NOW COVID-19 Assay is an isothermal nucleic acid amplification test intended for the qualitative detection of nucleic acid from SARS-CoV-2 viral RNA in nasopharyngeal (COATER SMOKING PIPE) specimens. It is used under Emergency Use [...] indicated. Lab Interpretation Normal (test code = 10396-0) [facility] ABDOMEN ACUTE [id number] 05:00:33 Impression: No radiographic evidence for acute cardiopulmonary disease. Marked gaseous distention ofthe colon, with a relative paucity of gas inthe distal sigmoid colon and rectum. This may reflect pseudoobstruction,but mechanical distal colonic obstruction cannot be excluded. RL: 460 AFC: 75468 Ordering physician: SABI Taborcation: Abdominal distention Comparison: [...] distal colonic obstruction cannot be excluded.RL: 460AF: 59160Tkvsjnjjphmwzd signed by Angeli Carrillo MD, PhD at 02/26/2020 12:00 [facility] Metabolic Panel (NA, K, CL, CO2, GLUCOSE, BUN, CREATININE, CA)2020-02-26 04:03:00 Test Item Value Reference Range Interpretation Comments NA (test code = 142 mmol/L 135-145 5447586817) K (test code = 4.1 mmol/L 3.5-5 2332699985) CL (test code = 107 mmol/L 98-108 1259931923) CO2 TOTAL (test code = 29 mmol/L 23-31 9643965496) AGAP (test code = 2-16 8305344044) BUN (test code = 13 mg/dL 7-23 1543420154) GLUCOSE (test code = 82 mg/dL 70-110 1204865609) CREATININE (test code 1.14 mg/dL 0.6-1.25 = 5298656431) CALCIUM (test code = 9.5 mg/dL 8.6-10.6 3924771617) eGFR Calculation mL/min/1.73m2 (Non-) (test code = 1775965370) eGFR Calculation mL/min/1.73m2 () (test code = 3313404741) GILBERTO (test code = GILBERTO) Association of [...] in imaging tests). [facility] Function [facility] (ALB, T.PRO, BILI T, BU/BC, ALT, AST, ALK PHOS)2020-02-26 04:03:00 Test Item Value Reference Range Interpretation Comments TOTAL BILI (test code = 3573440647) 0.5 mg/dL 0.1-1.1 BILI UNCON (test code = 6965129484) 0.5 mg/dL 0.1-1.1 BILI CONJ (test code = 8509030485) 0.0 mg/dL 0-0.3 T PROTEIN (test code = 5449429849) 6.2 g/dL 6.3-8.2 L ALBUMIN (test code = 6652419605) 4.2 g/dL 3.5-5 ALK PHOS (test code = 0486598844) 40 U/L 34-122 ALTv (test code = 1742-6) 20 U/L 5-50 AST(SGOT) (test code = 3203941194) 26 U/L 13-40 Lab Interpretation (test code = Abnormal 16497-1) [facility] AreaLipase [id number] 04:03:00 Test Item Value Reference Range Interpretation Comments LIPASE (test code = 9866555426) 57 U/L 0-220 Lab Interpretation (test code = Normal 71011-2) [facility] AreaLactic Acid Whole [id number] 03:52:00 Test Item Value Reference Range Interpretation Comments LACTIC ACID (test code = 1.66 mmol/L 0.5-2.2 8201043297) [facility] Area[facility] WITH [id number] 03:47:00 Test Item Value Reference Range Interpretation [...] RDW-SD (test code = 45.1 fL 38.5-51.6 09718-3) RDW-CV (test code = 13.7 % 12.1-15.4 788-0) PLT (test code = See_Comment [Automated 777-3) message] The sy stem which generated this result transmitted reference range : 150 - 328 10*3/ ?L. The reference r meredith was not used to interpret this result as normal/abnormal . MPV (test code = 10.7 fL 9.8-13 66023-4) NRBC/100 WBC (test See_Comment [Automat ed code = 5996835059) message] The system which generated this result transmitted reference range : 0.0 - 10.0 /100 WBCs. The refer ence range was not u sed to interpret th is result as normal/abnormal . NRBC x10^3 (test code <0.01 See_Comment [Auto mated = 6298494222) message] The s ystem which generated this result transmitted reference range : 10*3/?L. The reference range was not used to interpret this result as normal/abnormal . GRAN MAT (NEUT) % 63.1 % (test code = 770-8) IMM GRAN % (test code 0.40 % = 3051614931) LYMPH % (test code = 25.1 % 736-9) MONO % (test code = 9.9 % 5905-5) EOS % (test code = 1.1 % 713-8) BASO % (test code = 0.4 % 706-2) GRAN MAT x10^3(ANC) 3.52 10*3/uL 1.99-6.95 (test code = 3782921641) IMM GRAN x10^3 (test <0.03 0-0.06 code = 5063221466) LYMPH x10^3 (test code 1.40 10*3/uL 1.09-3.23 = 731-0) MONO x10^3 (test code 0.55 10*3/uL 0.36-1.02 = 742-7) EOS x10^3 (test code = 0.06 10*3/uL 0.06-0.53 711-2) BASO x10^3 (test code <0.03 0.01-0.09 = 704-7) Lab Interpretation Abnormal (test code = 60567-5) [facility]BDOMEN 1 [id number] 12:53:00 Name: DORA JOSEPH [facility] [place] : 1970 Age/S: 50 / M [address] [address] [place] Unit #: [id number] Loc: [place] [address] 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 Acct: [id number] Dis Date: Status: ADM IN PHONE#: [phone] Exam Date: 02/25/2020 1038 FAX #: Reason: abdominal distention EXAMS: CPT: [id number] XR ABDOMEN 1 V 23687 Fluoro Time: DAP (Gy m2): Air Kerma [...] small bowel loops in the left lower quadrant(not previously seen) at 1253 Reported and signed by: Sol Paige MD CC: Andre Solano; Mark Perea MD PAGE1 Signed Report Name: DORA JOSEPH [facility] : 1970 Age/S: 50 / M [address] Unit #: [id number] Loc: [place] [address] 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 Acct: [id number] Dis Date: Status: ADM IN PHONE #: [phone] Exam Date: 02/25/2020 1036 FAX #: Reason: abdominal distention EXAMS: CPT: [id number] XR ABDOMEN 1 V 19701 Fluoro Time: DAP (Gy m2): Air Kerma (mGy): <Continued> Technologist: Nichole Dill RT(R) Trnscb Date/Time: 02/25/2020 (5673) [email or web address] Orig Print D/T:S: 02/25/2020 (7329) PAGE 2 Signed Report COMPREHENSIVE METABOLIC [id number] 08:20:00 Test Item Value Reference Range Interpretation [...] 50-136 L TOTAL (test code = ALKP) [id number] 08:20:00 Test Item Value Reference Range Interpretation Comments MAGNESIUM (test code = MAG) 2.2 MG/DL 1.8-2.4 N THYROID STIMULATING [id number] 08:20:00 Test Item Value Reference Range Interpretation Comments THYROID STIMULATING HORMONE 5.430 mcIU/ML 0.340-4.820 H (test code = TSH) CBC W/AUTO [id number] 07:55:00 Test Item Value Reference Range Interpretation [...] N NRBC#) UA RFLX MICR CULT IF [id number] 12:29:00 Test Item Value Reference Range Interpretation [...] culture: Suprapubic PainUA RFLX MICR CULT IF [id number] 12:29:00 Test Item Value Reference Range Interpretation [...] for culture: Suprapubic PainCOVID 19 Asymptomatic IH [id number] 22:09:00 Test Item Value Reference Range Interpretation [...] tent with COVID-19. - CT ABD PELVIS W/[id number] 21:10:00 Name: DORA JOSEPH [place] : 1970 Age/S: 50 / M [address] [place] Unit #: [id number] Loc: [place] [address] Phys: Evin Castellanos MD Acct: [id number] Dis Date: Status: REG ER PHONE #: [phone] Exam Date: 02/23/20202047 FAX #: Reason: diffuse abdomen pain and distention EXAMS: CPT: [id number] CT ABD PELVIS W/CONT 23053 EXAM: - CT ABD PELVIS W/CONT LOCATION: H61 CLINICALHISTORY/INDICATION: diffuse abdomen pain and distention COMPARISON: Multiple [...] volvulus seen. Colonic dilatation is similar when comparedto multiple prior KUBs as well as the 12/12/2019 PAGE 1 Signed Report (CONTINUED) Name: ADINA JOSEPH [place] : 1970 Age/S: 50 / M [address] [place] Unit #: [id number] Loc: [place] [address] Phys: Evin Castellanos MD Acct: [id number] Dis Date: Status: REG ER PHONE #: [phone] Date: 02/23/20202047 FAX #: Reason: diffuse abdomen pain and distention EXAMS: CPT: [id number] ABD PELVIS W/CONT 88826 <Continued> CT. No bowel wall thickening or [...] by: Marybel José M.D. CC: Susana Meza COATER SMOKING PIPE; Carl Luevano MD Technologist:Rudy Zuniga, RT(R)(CT)(MRI) CTDI: DLP: Trnscb Date/Time: 02/23/2020 (2109) t.SDR.TH15 Orig Print D/T: S: 02/23/2020 (2112) PAGE 2 Signed Report- XR CHEST 1 [id number] 21:03:00 Name: DORA JOSEPH [facility] : 1970 Age/S: 50 / M [address] [address] [place] Unit #: [id number] Loc: [place] [address] Phys: Evin Castellanos MD Acct: [id number] Dis Date: Status: REG ER PHONE #: [phone] Exam Date: 02/23/20202055 FAX #: Reason: Code Sepsis EXAMS: CPT: [id number] XR CHEST 1 V 53385 Fluoro Time: DAP (Gy m2): Air Kerma (mGy): DICTATION LOCATION: H48 HISTORY: Male, 50 years of age with [...] by: Monica Quijano MD CC: Susana Meza COATER SMOKING PIPE; Carl Luevano MD PAGE 1 Signed Report Name: DORA JOSEPH [facility] : 1970 Age/S: 50 / M [address] [address] [place] Unit #: [id number] Loc: [place] [address] Phys: Evin Castellanos MD Acct: [id number] Dis Date: Status: REG ER PHONE #: [phone] Exam Date: 02/23/20202055 FAX #: Reason: Code Sepsis EXAMS: CPT: [id number] XR CHEST 1 V 98332 Fluoro Time: DAP (Gy m2): Air Kerma (mGy): <Continued> Technologist: Rudy Zuniga RT(R)(CT)(MRI) Trnscb Date/Time: 02/23/2020 (2102) [email or web address] Orig Print D/T: S: 02/23/2020 (2106) PAGE 2 Signed ReportBASIC METABOLIC [id number] 20:02:00 Test Item Value Reference Range Interpretation [...] 8.5-10.1 N Completed by Nursing: NOHEPATIC FUNCTION [id number] 20:02:00 Test Item Value Reference Range Interpretation [...] N code = ALKP) Completed by Nursing: [id number] 20:02:00 Test Item Value Reference Range Interpretation Comments LIPASE (test code = LIP) 97 Unit/L 114-286 L Completed by Nursing: [id number] 20:02:00 Test Item Value Reference Range Interpretation [...] brittani yby method. Completed by Nursing: NOLACTIC QPXR1403-07-40 19:59:00 Test Item Value Reference Range Interpretation Comments LACTIC ACID (test code = LACT) 1.2 mmol/L 0.4-2.0 N CBC W/AUTO [id number] 19:46:00 Test Item Value Reference Range Interpretation [...] CRITERIA = MDIFF) - XR ABDOMEN 2 [id number] 06:22:00 Name: DORA JOSEPH [facility] : 1970 Age/S: 50 / M [address] [place] Unit #: [id number] Loc: [place] [address] Phys: Leonidas Robertson MD Acct: [id number] Dis Date: Status: ADM IN PHONE #: [phone] Exam Date: 02/19/2020 0440 FAX #: Reason: megacolon EXAMS: CPT: [id number] XR ABDOMEN 2 V 62239 Fluoro Time: DAP (Gy m2): Air Kerma (mGy): EXAM: Abdomen 2 views Location: [facility] HISTORY: Megacolon. COMPARISON: 01/10/2020 FINDINGS: AP upright [...] CC: Leonidas Robertson MD; Coco Nova MD PAGE1 Signed Report Name: DORA JOSEPH [facility] : 1970 Age/S: 50 / M [address] [address] [place] Unit #: [id number] Loc: [place] [address] Phys: Leonidas Robertson MD Acct: [id number] Dis Date: Status: ADM IN PHONE #: [phone] Exam Date: 02/19/2020 0440 FAX #: Reason: megacolon EXAMS: CPT:[id number] XR ABDOMEN 2 V 86971 Fluoro Time: DAP (Gy m2): Air Kerma (mGy): <Continued> Technologist: Carrie Barnett, RT(R)(CT) Trnscb Date/Time: 02/19/2020 (621) [email or web address] Orig Print D/T: S: (0667) PAGE 2 Signed ReportBASIC METABOLIC [id number] 05:52:00 Test Item Value Reference Range Interpretation [...] CA) 8.5 MG/DL 8.5-10.1 N CBC W/AUTO [id number] 05:40:00 Test Item Value Reference Range Interpretation [...] NO DIFF/SCN CRITERIA = MDIFF) BASIC METABOLIC [id number] 06:52:00 Test Item Value Reference Range Interpretation [...] CA) 8.3 MG/DL 8.5-10.1 L CBC W/AUTO [id number] 06:39:00 Test Item Value Reference Range Interpretation [...] DIFF/SCN CRITERIA = MDIFF) Coronavirus 2019 nCoV [id number] 05:35:00 Test Item Value Reference Range Interpretation [...] NA (test code = 139 mmol/L 135-145 2089358527) K (test code = 4.3 mmol/L 3.5-5 7937777862) CL (test code = 105 mmol/L 98-108 8968663289) CO2 TOTAL (test code = 30 mmol/L 23-31 2223495184) AGAP (test code = 2-16 5085015427) BUN (test code = 6 mg/dL 7-23 L 2715029718) GLUCOSE (test code = 94 mg/dL 70-110 0797909183) CREATININE (test code = 1.07 mg/dL 0.6-1.25 7723139866) CALCIUM (test code = 9.3 mg/dL 8.6-10.6 1281868455) eGFR Calculation mL/min/1.73m2 (Non-) (test code = 9294181467) eGFR Calculation mL/min/1.73m2 () (test code = 2548880349) GILBERTO (test code = GILBERTO) Association of [...] tests). Lab Interpretation Abnormal (test code = 43263-8) [facility]IUM2020-[facility]-12 16:58:00 Test Item Value Reference Range Interpretation Comments MAGNESIUM (test code = 2551112086) 2.0 mg/dL 1.7-2.4 Lab Interpretation (test code = Normal 71174-6) [facility] [id number] 17:02:411. Interval worsening of air distended loops [...] with cecum measuring up to 15 cm. [facility] WITH [id number] 07:20:00 Test Item Value Reference Range Interpretation Comments WBC (test code = See_Comment L [Automated 6190-2) message] The sy stem which generated this result transmitted reference range : 4.20 - 10.70 10*3/?L. The reference range was not used to interpret this result as normal/abnormal . RBC (test code = See_Comment [Automated 949-8) message] The sy stem which generated this [...] RDW-SD (test code = 46.5 fL 38.5-51.6 07282-9) RDW-CV (test code = 13.9 % 12.1-15.4 788-0) PLT (test code = See_Comment L [Automated 777-3) message] The sy stem which generated this result transmitted reference range : 150 - 328 10*3/ ?L. The reference r meredith was not used to interpret this result as normal/abnormal . MPV (test code = 10.7 fL 9.8-13 60130-1) NRBC/100 WBC (test See_Comment [Automat ed code = 0330966578) message] The system which generated this result transmitted reference range : 0.0 - 10.0 /100 WBCs. The refer ence range was not u sed to interpret th is result as normal/abnormal . NRBC x10^3 (test code <0.01 See_Comment [Auto mated = 4419750650) message] The s ystem which generated this result transmitted reference range : 10*3/?L. The reference range was not used to interpret this result as normal/abnormal . GRAN MAT (NEUT) % 48.6 % (test code = 770-8) IMM GRAN % (test code 0.20 % = 9978052311) LYMPH % (test code = 39.6 % 736-9) MONO % (test code = 8.4 % 5905-5) EOS % (test code = 2.7 % 713-8) BASO % (test code = 0.5 % 706-2) GRAN MAT x10^3(ANC) 1.96 10*3/uL 1.99-6.95 L (test code = 0357672559) IMM GRAN x10^3 (test <0.03 0-0.06 code = 0150420896) LYMPH x10^3 (test code 1.60 10*3/uL 1.09-3.23 = 731-0) MONO x10^3 (test code 0.34 10*3/uL 0.36-1.02 L = 742-7) EOS x10^3 (test code = 0.11 10*3/uL 0.06-0.53 711-2) BASO x10^3 (test code <0.03 0.01-0.09 = 704-7) Lab Interpretation Abnormal (test code = 14100-7) [facility] (NA, K, CL, CO2, GLUCOSE, BUN, CREATININE, CA)2020-01-31 06:32:00 Test Item Value Reference Range Interpretation Comments NA (test code = 138 mmol/L 135-145 4255752140) K (test code = 4.2 mmol/L 3.5-5 Slight 7273551858) hemolysis CL (test code = 108 mmol/L 98-108 5388000191) CO2 TOTAL (test code 22 mmol/L 23-31 L = 5953814854) AGAP (test code = 2-16 9023315630) BUN (test code = 7 mg/dL 7-23 Slight 6504929338) hemolysis GLUCOSE (test code = 92 mg/dL 70-110 5919890788) CREATININE (test code 1.02 mg/dL 0.6-1.25 = 4339986969) CALCIUM (test code = 8.9 mg/dL 8.6-10.6 6386268097) eGFR Calculation mL/min/1.73m2 (Non-) (test code = 5722673404) eGFR Calculation mL/min/1.73m2 () (test code = 6759853873) GILBERTO (test code = GILBERTO) Association of [...] tests). Lab Interpretation Abnormal (test code = 89540-3) [facility] WITH [id number] 11:00:00 Test Item Value Reference Range Interpretation [...] RDW-SD (test code = 48.7 fL 38.5-51.6 39834-0) RDW-CV (test code = 14.4 % 12.1-15.4 788-0) PLT (test code = See_Comment L [Automated 777-3) message] The sy stem which generated this result transmitted reference range : 150 - 328 10*3/ ?L. The reference r meredith was not used to interpret this result as normal/abnormal . MPV (test code = 10.7 fL 9.8-13 09062-7) IPF % (test code = 5.1 % 1.2-10.7 Platelet count 3438120930) measured by fluorescence method. NRBC/100 WBC (test See_Comment [Automat ed code = 4540057205) message] The system which generated this result transmitted reference range : 0.0 - 10.0 /100 WBCs. The refer ence range was not u sed to interpret th is result as normal/abnormal . NRBC x10^3 (test code <0.01 See_Comment [Auto mated = 7353286817) message] The s ystem which generated this result transmitted reference range : 10*3/?L. The reference range was not used to interpret this result as normal/abnormal . SEG % (test code = 53 % 33-76 29488-0) BAND % (test code = 1 % 0-1 52815-2) LYMPH % (test code = 39 % 14-54 74065-8) MONO % (test code = 4 % 0-4 31148-0) EOS % (test code = 3 % 0-3 15228-6) ANC (test code = 1.93 10*3/uL 1.99-6.95 L 9712089912) Lab Interpretation Abnormal (test code = 52828-8) [facility] Metabolic Panel (NA, K, CL, CO2, GLUCOSE, BUN, CREATININE, CA)2020-01-29 10:23:00 Test Item Value Reference Range Interpretation Comments NA (test code = 138 mmol/L 135-145 4955921225) K (test code = 4.0 mmol/L 3.5-5 1648177415) CL (test code = 109 mmol/L 98-108 H 5313721160) CO2 TOTAL (test code = 27 mmol/L 23-31 1067340804) AGAP (test code = 2-16 1238555594) BUN (test code = 16 mg/dL 7-23 1327903668) GLUCOSE (test code = 81 mg/dL 70-110 3505337677) CREATININE (test code = 1.14 mg/dL 0.6-1.25 7804853761) CALCIUM (test code = 8.6 mg/dL 8.6-10.6 3706842690) eGFR Calculation mL/min/1.73m2 (Non-) (test code = 4290652443) eGFR Calculation mL/min/1.73m2 () (test code = 4341401056) GILBERTO (test code = GILBERTO) Association of [...] tests). Lab Interpretation Abnormal (test code = 32173-2) [facility]-19 [id number] 04:27:00 Test Item Value Reference Range Interpretation Comments SARS-CoV-2 Rapid ID NOW Not Detected Not Detected (test code = 64334-1) GILBERTO (test code = GILBERTO) ID NOW COVID-19 Assay is an isothermal nucleic acid amplification test intended for the qualitative detection of nucleic acid from SARS-CoV-2 viral RNA in nasopharyngeal (COATER SMOKING PIPE) specimens. It is used under Emergency Use [...] indicated. Lab Interpretation Normal (test code = 52107-5) [facility] Acid Whole [id number] 04:10:00 Test Item Value Reference Range Interpretation Comments LACTIC ACID (test code = 1.74 mmol/L 0.5-2.2 3928973749) [facility] (ID NOW RAPID TESTING)2020-01-29 02:17:00 Test Item Value Reference Range Interpretation Comments SARS-CoV-2 Rapid ID NOW Not Detected Not Detected (test code = 71034-9) GILBERTO (test code = GILBERTO) ID NOW COVID-19 Assay is an isothermal nucleic acid amplification test intended for the qualitative detection of nucleic acid from SARS-CoV-2 viral RNA in nasopharyngeal (COATER SMOKING PIPE) specimens. It is used under Emergency Use [...] indicated. Lab Interpretation Normal (test code = 74199-4) [facility] AreaUrinalysis2020-06-07 02:14:00 Test Item Value Reference Range Interpretation Comments APPEARANCE (test code = Clear Clear 1456381706) COLOR (test code = Dark Yellow Yellow A 3866450659) PH (test code = 4.8-8.0 7259901431) SP GRAVITY (test code = 1.003-1.030 H 8534841494) GLU U QUAL (test code = Normal Normal 2333651398) BLOOD (test code = 1+ Negative A 2871746698) KETONES (test code = 5 mg/dL Negative A 6858564708) PROTEIN (test code = Negative Negative 2887-8) UROBILIN (test code = Normal Normal 6804249099) BILIRUBIN (test code = Negative Negative 7043434051) NITRITE (test code = Negative Negative 5333043121) LEUK ROGER (test code = Negative Negative 1928585357) RBC/HPF (test code = See_Comment H [Autom ated 6005428270) message] The sy stem which generated this result transmitted reference range : 0 - 3 HPF. The reference range was not used to interpret this result as normal/abnormal . WBC/HPF (test code = See_Comment [Autom ated 7572058636) message] The sy stem which generated this result transmitted reference range : 0 - 5 HPF. The reference range was not used to interpret this result as normal/abnormal . BACTERIA (test code = Moderate Negative A 7516132174) MUCOUS (test code = Slight Negative LPF A 4913518682) AMORPHOUS (test code = Rare Rare HPF 0064246844) SQ EPITH (test code = <1 See_Comment [Auto mated 2008394384) message] The sy stem which generated this result transmitted reference range : <=2 HPF. The reference range was not used to interpret this result as normal/abnormal . CA OXALATE (test code = See_Comment H [Au tomated 1763771725) message] The sy stem which generated this result transmitted reference range : <=1 HPF. The reference range was not used to interpret this result as normal/abnormal . HYAL CAST (test code = See_Comment H [Aut omated 4558371659) message] The sy stem which generated this result transmitted reference range : <=2 LPF. The reference range was not used to interpret this result as normal/abnormal . ASCORBIC ACID (test Negative code = 5335318312) Lab Interpretation Abnormal (test code = 33635-9) [facility] ABD[facility] PELVIS W [id number] 00:25:08Persistent marked and severe dilatation of the [...] is essentially stable compared to prior examination. [facility] (NA, K, CL, CO2, GLUCOSE, BUN, CREATININE, CA)2020-01-28 23:38:00 Test Item Value Reference Range Interpretation Comments NA (test code = 143 mmol/L 135-145 5769749039) K (test code = 4.2 mmol/L 3.5-5 6354536828) CL (test code = 111 mmol/L 98-108 H 3406449942) CO2 TOTAL (test code = 28 mmol/L 23-31 5687117485) AGAP (test code = 2-16 6263336121) BUN (test code = 15 mg/dL 7-23 1038785283) GLUCOSE (test code = 68 mg/dL 70-110 L 1993127176) CREATININE (test code = 1.32 mg/dL 0.6-1.25 H 7910947306) CALCIUM (test code = 9.0 mg/dL 8.6-10.6 0841295468) eGFR Calculation mL/min/1.73m2 (Non-) (test code = 8641732349) eGFR Calculation mL/min/1.73m2 () (test code = 6433497627) GILBERTO (test code = GILBERTO) Association of [...] tests). Lab Interpretation Abnormal (test code = 00446-2) [facility] Function [facility] (ALB, T.PRO, BILI T, BU/BC, ALT, AST, ALK PHOS)2020-01-28 23:38:00 Test Item Value Reference Range Interpretation Comments TOTAL BILI (test code = 7150753445) 0.6 mg/dL 0.1-1.1 BILI UNCON (test code = 6602221274) 0.6 mg/dL 0.1-1.1 BILI CONJ (test code = 9738851494) 0.0 mg/dL 0-0.3 T PROTEIN (test code = 3697497746) 5.7 g/dL 6.3-8.2 L ALBUMIN (test code = 0249308901) 3.8 g/dL 3.5-5 ALK PHOS (test code = 4977426878) 37 U/L 34-122 ALTv (test code = 1742-6) 23 U/L 5-50 AST(SGOT) (test code = 4900385358) 25 U/L 13-40 Lab Interpretation (test code = Abnormal 83688-5) [facility] AreaLipase [id number] 23:38:00 Test Item Value Reference Range Interpretation Comments LIPASE (test code = 9168119588) 62 U/L 0-220 Lab Interpretation (test code = Normal 88413-3) [facility] WITH [id number] 23:29:00 Test Item Value Reference Range Interpretation [...] RDW-SD (test code = 47.5 fL 38.5-51.6 97333-7) RDW-CV (test code = 14.3 % 12.1-15.4 788-0) PLT (test code = See_Comment [Automated 777-3) message] The sy stem which generated this result transmitted reference range : 150 - 328 10*3/ ?L. The reference r meredith was not used to interpret this result as normal/abnormal . MPV (test code = 10.6 fL 9.8-13 55359-9) NRBC/100 WBC (test See_Comment [Automat ed code = 2492703534) message] The system which generated this result transmitted reference range : 0.0 - 10.0 /100 WBCs. The refer ence range was not u sed to interpret th is result as normal/abnormal . NRBC x10^3 (test code <0.01 See_Comment [Auto mated = 3280976367) message] The s ystem which generated this result transmitted reference range : 10*3/?L. The reference range was not used to interpret this result as normal/abnormal . GRAN MAT (NEUT) % 50.1 % (test code = 770-8) IMM GRAN % (test code 0.20 % = 1148153367) LYMPH % (test code = 34.7 % 736-9) MONO % (test code = 12.5 % 5905-5) EOS % (test code = 1.8 % 713-8) BASO % (test code = 0.7 % 706-2) GRAN MAT x10^3(ANC) 2.28 10*3/uL 1.99-6.95 (test code = 8571687091) IMM GRAN x10^3 (test <0.03 0-0.06 code = 9225880318) LYMPH x10^3 (test code 1.58 10*3/uL 1.09-3.23 = 731-0) MONO x10^3 (test code 0.57 10*3/uL 0.36-1.02 = 742-7) EOS x10^3 (test code = 0.08 10*3/uL 0.06-0.53 711-2) BASO x10^3 (test code 0.03 10*3/uL 0.01-0.09 = 704-7) Lab Interpretation Abnormal (test code = 84536-1) [facility] METABOLIC PANEL (NA, K, CL, CO2, GLUCOSE, BUN, CREATININE, CA)2020-01-26 18:34:00 Test Item Value Reference Range Interpretation Comments NA (test code = 138 mmol/L 135-145 4926395034) K (test code = 3.7 mmol/L 3.5-5 1620546742) CL (test code = 108 mmol/L 98-108 4892947982) CO2 TOTAL (test code = 25 mmol/L 23-31 3450135432) AGAP (test code = 2-16 7764889708) BUN (test code = 9 mg/dL 7-23 0520855473) GLUCOSE (test code = 107 mg/dL 70-110 0592786061) CREATININE (test code 0.96 mg/dL 0.6-1.25 = 1858369974) CALCIUM (test code = 8.7 mg/dL 8.6-10.6 4670122217) eGFR Calculation mL/min/1.73m2 (Non-) (test code = 9985333989) eGFR Calculation mL/min/1.73m2 () (test code = 1999086393) GILBERTO (test code = GILBERTO) Association of [...] in imaging tests). [facility] [id number] 08:33:00 Test Item Value Reference Range Interpretation Comments MAGNESIUM (test code = 1.9 mg/dL 1.7-2.4 Sligh t hemolysis 8412655850) Lab Interpretation (test Normal code = 16087-7) [facility] [id number] 06:18:53 Redemonstration of marked gaseous distention of the transverse anddescending colon. RL: 460 AFC: [id number] Ordering physician: HELENE GRIFFIN INDICATION: Abdominal pain [...] distention of the transverse anddescending colon.RL: 460AFC: [id number] signed by Angeli Carrillo MD, PhD at 01/26/2020 1:18 AMUnSaint [facility] Phosphorus [id number] 10:11:00 Test Item Value Reference Range Interpretation Comments PHOSPHORUS (test code = 3029104146) 3.9 mg/dL 2.5-5 Lab Interpretation (test code = Normal 45700-0) [facility] (ID NOW RAPID TESTING)2020-01-25 05:12:00 Test Item Value Reference Range Interpretation Comments SARS-CoV-2 Rapid ID NOW Not Detected Not Detected (test code = 50195-0) GILBERTO (test code = GILBERTO) ID NOW COVID-19 Assay is an isothermal nucleic acid amplification test intended for the qualitative detection of nucleic acid from SARS-CoV-2 viral RNA in nasopharyngeal (COATER SMOKING PIPE) specimens. It is used under Emergency Use [...] indicated. Lab Interpretation Normal (test code = 04886-6) [facility] AreaLactic Acid Whole [id number] 04:34:00 Test Item Value Reference Range Interpretation Comments LACTIC ACID (test code = 0.89 mmol/L 0.5-2.2 0507943413) [facility] ABDOMEN PELVIS W [id number] 02:47:02Impression: Marked distention and dilatation of the [...] wall, vasculature, and the bones are unremarkable. [facility], Radiant Results Inft User - 01/24/2020 9:48 [...] bowel as well. Rectal tubedecompression may be considered.[facility] AreaUrinalysis2020-06-03 01:51:00 Test Item Value Reference Range Interpretation Comments APPEARANCE (test code = Hazy Clear A 7058834551) COLOR (test code = Yellow Yellow 5159773457) PH (test code = 4.8-8.0 3042276175) SP GRAVITY (test code = 1.003-1.030 2287612127) GLU U QUAL (test code = Normal Normal 1394270427) BLOOD (test code = Negative Negative 8119442515) KETONES (test code = Negative Negative 1494726242) PROTEIN (test code = Negative Negative 2887-8) UROBILIN (test code = Normal Normal 7216590563) BILIRUBIN (test code = Negative Negative 4362783751) NITRITE (test code = Negative Negative 0360120902) LEUK ROGER (test code = Negative Negative 8702891203) RBC/HPF (test code = See_Comment H [Autom ated message] 0401478256) The system [email or web address] generated this result transmitted ref erence range: 0 - 3 HP F. The reference range was not used to int erpret this result as normal/abnormal . WBC/HPF (test code = See_Comment [Autom ated message] 5109352546) The system [email or web address] generated this result transmitted ref erence range: 0 - 5 HP F. The reference range was not used to int erpret this result as normal/abnormal . BACTERIA (test code = Negative Negative 8590422337) SQ EPITH (test code = <1 See_Comment [Auto mated message] 3321488272) The system [email or web address] generated this result transmitted ref erence range: <=2 HPF. The reference range was not used to int erpret this result as normal/abnormal . CA OXALATE (test code = See_Comment H [Au tomated message] 9784351882) The system [email or web address] generated this result transmitted ref erence range: <=1 HPF. The reference range was not used to int erpret this result as normal/abnormal . Lab Interpretation (test Abnormal code = 40735-9) [facility] (NA, K, CL, CO2, GLUCOSE, BUN, CREATININE, CA)2020-01-25 01:01:00 Test Item Value Reference Range Interpretation Comments NA (test code = 139 mmol/L 135-145 6511873948) K (test code = 4.6 mmol/L 3.5-5 Slight hemoly sis 7725750964) CL (test code = 107 mmol/L 98-108 4630105756) CO2 TOTAL (test 26 mmol/L 23-31 code = 6614743901) AGAP (test code = 2-16 9685874098) BUN (test code = 23 mg/dL 7-23 Slight hemo lysis 0160743697) GLUCOSE (test code 94 mg/dL 70-110 = 4881480870) CREATININE (test 1.13 mg/dL 0.6-1.25 code = 3477214643) CALCIUM (test code 8.9 mg/dL 8.6-10.6 = 4230126063) eGFR Calculation mL/min/1.73m2 (Non-) (test code = 3204530623) eGFR Calculation mL/min/1.73m2 () (test code = 4110365779) GILBERTO (test code = Association of GILBERTO) [...] in imaging tests). [facility] (ALB, T.PRO, BILI T, BU/BC, ALT, AST, ALK PHOS)2020-01-25 01:01:00 Test Item Value Reference Range Interpretation Comments TOTAL BILI (test code = 5568165520) 0.7 mg/dL 0.1-1.1 BILI UNCON (test code = 6726808567) 0.6 mg/dL 0.1-1.1 BILI CONJ (test code = 0020080284) 0.0 mg/dL 0-0.3 T PROTEIN (test code = 9558756198) 6.2 g/dL 6.3-8.2 L ALBUMIN (test code = 3875882919) 4.1 g/dL 3.5-5 ALK PHOS (test code = 8442135741) 46 U/L 34-122 ALTv (test code = 1742-6) 27 U/L 5-50 AST(SGOT) (test code = 1348426424) 31 U/L 13-40 Lab Interpretation (test code = Abnormal 67761-7) [facility] [id number] 01:01:00 Test Item Value Reference Range Interpretation Comments LIPASE (test code = 8016137661) 246 U/L 0-220 H Lab Interpretation (test code = Abnormal 82324-7) [facility] WITH [id number] 00:49:00 Test Item Value Reference Range Interpretation [...] RDW-SD (test code = 46.8 fL 38.5-51.6 88174-3) RDW-CV (test code = 14.2 % 12.1-15.4 788-0) PLT (test code = See_Comment [Automated 777-3) message] The sy stem which generated this result transmitted reference range : 150 - 328 10*3/ ?L. The reference r meredith was not used to interpret this result as normal/abnormal . MPV (test code = 10.7 fL 9.8-13 89143-4) NRBC/100 WBC (test See_Comment [Automat ed code = 7206299425) message] The system which generated this result transmitted reference range : 0.0 - 10.0 /100 WBCs. The refer ence range was not u sed to interpret th is result as normal/abnormal . NRBC x10^3 (test code <0.01 See_Comment [Auto mated = 9477237153) message] The s ystem which generated this result transmitted reference range : 10*3/?L. The reference range was not used to interpret this result as normal/abnormal . GRAN MAT (NEUT) % 56.9 % (test code = 770-8) IMM GRAN % (test code 0.20 % = 5557262797) LYMPH % (test code = 31.2 % 736-9) MONO % (test code = 9.7 % 5905-5) EOS % (test code = 1.6 % 713-8) BASO % (test code = 0.4 % 706-2) GRAN MAT x10^3(ANC) 2.86 10*3/uL 1.99-6.95 (test code = 9122063542) IMM GRAN x10^3 (test <0.03 0-0.06 code = 6835958204) LYMPH x10^3 (test code 1.57 10*3/uL 1.09-3.23 = 731-0) MONO x10^3 (test code 0.49 10*3/uL 0.36-1.02 = 742-7) EOS x10^3 (test code = 0.08 10*3/uL 0.06-0.53 711-2) BASO x10^3 (test code <0.03 0.01-0.09 = 704-7) Lab Interpretation Abnormal (test code = 82923-7) [facility] 1 [id number] 07:32:00 Name: DORA JOSEPH [facility] : 1970 Age/S: 49 / M [address] [address] [place] Unit #: [id number] Loc: [place] [address] Phys: Jay Mayo MD Acct: [id number] Dis Date: Status: ADM IN PHONE #: [phone] Exam Date: 01/10/2020 0658 FAX #: Reason: follow up colonic ileus EXAMS:CPT: [id number] XR ABDOMEN 1 V 86692 Fluoro Time: DAP (Gy m2): Air Kerma (mGy): EXAM: - XR ABDOMEN 1V HISTORY: follow up colonic ileus Location code:C3 [...] PAGE 1 Signed Report Name: DORA JOSEPH [place] : 1970 Age/S: 49 / M [address] [address] [place] Unit #: [id number] Loc: [place] [address] Phys: Jay aMyo MD Acct: [id number] Dis Date: Status: ADM IN PHONE #: [phone] Exam Date: 01/10/2020 0658 FAX #: Reason: follow up colonic ileus EXAMS: CPT: [id number] XR ABDOMEN 1 V 88378 Fluoro Time: DAP (Gym2): Air Kerma (mGy): <Continued> Technologist: Alexander De Leon RT(R)(CT) Trnscb Date/Time: 01/10/2020 (0732) GarettCB5 Orig Print D/T: S: 01/10/2020 (0736) PAGE 2 Signed ReportCOMPREHENSIVE METABOLIC [id number] 05:56:00 Test Item Value Reference Range Interpretation [...] TOTAL (test code = ALKP) CBC W/AUTO [id number] 05:42:00 Test Item Value Reference Range Interpretation [...] = NO DIFF/SCN CRITERIA MDIFF) BASIC METABOLIC [id number] 06:59:00 Test Item Value Reference Range Interpretation [...] code = CA) 8.5 MG/DL 8.5-10.1 N [id number] 06:59:00 Test Item Value Reference Range Interpretation Comments MAGNESIUM (test code = MAG) 2.2 MG/DL 1.8-2.4 PROTHROMBIN [id number] 06:39:00 Test Item Value Reference Range Interpretation Comments PT PATIENT (test code = PTP) 13.1 SECONDS 9.3-12.9 H INTERNATIONAL NORMAL RATIO 1.16 INR Unit 0.8-1.2 N (test code = INR) CBC W/AUTO [id number] 06:22:00 Test Item Value Reference Range Interpretation [...] DIFF/SCN CRITERIA MDIFF) - XR ABDOMEN 1 [id number] 05:39:00 Name: DORA JOSEPH [place] : 1970 Age/S: 49 / M [address] [address] [place] Unit #: [id number] Loc: [place] [address] 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 JEREMY Acct: [id number] Dis Date: Status: ADM IN PHONE#: [phone] Exam Date: 01/09/2020522 FAX #: Reason: colonic ileus/obstruction EXAMS: CPT: [id number] XR ABDOMEN 1 V 68008 Fluoro Time: DAP (Gy m2): Air Kerma (mGy): Exam: KUB. Location: H 12 History: colonic ileus/obstruction COMPARISON: 01/08/2020 Findings: A supine view of the abdomen demonstrates no change has occurred in the dilatation of the distal colon. No organomegaly, abnormal masses orcalcifications are seen. No pneumatosis or free air is present. Impression: Stable abdomen. at 0539 Reported and signed by: Teo Do M.D. CC: Andre Solano; Mark Perea MD PAGE 1 Signed Report Name: DORA JOSEPH [place] : 1970 Age/S: 49 / M [address] [facility] Unit #: [id number] Loc: [place] [address] 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P Acct: [id number] Dis Date: Status: ADM IN PHONE #: [phone] Exam Date: 01/09/2020522 FAX #: Reason: colonic ileus/obstruction EXAMS: CPT: [id number] XR ABDOMEN 1 V 36866 Fluoro Time: DAP (Gy m2): Air Kerma (mGy): <Continued> Technologist: Carrie Barnett, RT(R)(CT) Trnscb Date/Time: 01/09/2020 (0539) Herrera Orig Print D/T: S: 01/09/2020 (0542) PAGE 2Signed ReportCoronavirus 2019 nCoV [id number] 22:38:00 Test Item Value Reference Range Interpretation Comments Coronavirus 2019 nCoV Bedside (test Negative Negative code = [id number]) Emergent procedure? YESCoronavirus 2019 nCoV [id number] 22:38:00 Test Item Value Reference Range Interpretation Comments Coronavirus 2019 nCoV Bedside (test Negative Negative code = [id number]) Emergent procedure? YESBASIC METABOLIC [id number] 18:42:00 Test Item Value Reference Range Interpretation [...] CA) 8.5 MG/DL 8.5-10.1 N CBC W/AUTO [id number] 10:50:00 Test Item Value Reference Range Interpretation [...] = NO DIFF/SCN CRITERIA MDIFF) COMPREHENSIVE METABOLIC [id number] 10:46:00 Test Item Value Reference Range Interpretation [...] 50-136 N TOTAL (test code = ALKP) [id number] 10:46:00 Test Item Value Reference Range Interpretation Comments MAGNESIUM (test code = MAG) 2.6 MG/DL 1.8-2.4 H COMPREHENSIVE METABOLIC [id number] 10:34:00 Test Item Value Reference Range Interpretation [...] TOTAL (test Unit/L 50-136 code = ALKP) [id number] 10:34:00 Test Item Value Reference Range Interpretation Comments MAGNESIUM (test code = MAG) MG/DL 1.8-2.4 - XR ABDOMEN 1 [id number] 08:28:00 Name: DORA JOSEPH [place] : 1970 Age/S: 49 / M [address] [place] [address] Unit #: [id number] Loc: [place] [address] Phys: Yas Edwards MD Acct: [id number] Dis Date: Status: ADM IN PHONE #: [phone] Exam Date: 01/08/2020509 FAX #: Reason: ileus EXAMS: CPT: [id number] XR ABDOMEN 1V 53779 Fluoro Time: DAP (Gy m2): Air Kerma [...] PAGE 1 Signed Report Name: DORA JOSEPH [place] : 1970 Age/S: 49 / M [address] [place] [address] Unit #: [id number] Loc: [place] [address] Phys: Yas Edwards MD Acct: [id number] Dis Date: Status: ADM IN PHONE #: [phone] Exam Date: 01/08/202010 FAX #: Reason: ileus EXAMS: CPT: [id number] XR ABDOMEN 1 V 25316 Fluoro Time: DAP (Gy m2): Air Kerma (mGy): <Continued> Technologist: Carrie Barnett, RT(R)(CT); ... Trnscb Date/Time: 01/08/2020 (827) tJAQUELINE Orig Print D/T: S: 01/08/2020 (31) PAGE 2 Signed ReportCOMPREHENSIVE METABOLIC [id number] 07:08:00 Test Item Value Reference Range Interpretation [...] 50-136 L TOTAL (test code = ALKP) [id number] 07:08:00 Test Item Value Reference Range Interpretation Comments MAGNESIUM (test code = MAG) 1.3 MG/DL 1.8-2.4 L COMPREHENSIVE METABOLIC [id number] 05:16:00 Test Item Value Reference Range Interpretation [...] 50-136 L TOTAL (test code = ALKP) [id number] 05:16:00 Test Item Value Reference Range Interpretation Comments MAGNESIUM (test code = MAG) 1.3 MG/DL 1.8-2.4 L CBC W/AUTO [id number] 05:02:00 Test Item Value Reference Range Interpretation [...] (test code = NO DIFF/SCN CRITERIA MDIFF) [id number] 16:51:00 Test Item Value Reference Range Interpretation Comments MAGNESIUM (test code = MAG) 2.3 MG/DL 1.8-2.4 N FE W/TOTAL IRON BINDING CAP.2020-01-07 16:51:00 Test Item Value Reference Range Interpretation Comments SERUM IRON (test code = IRON) 38 mcG/DL 65-175 L TOTAL IRON BINDING CAPACITY (test 322 mcG/DL 250-450 N code = TIBC) IRON SATURATION (test code = 12 % calc 12-57 N FESAT) [id number] 16:51:00 Test Item Value Reference Range Interpretation Comments FERRITIN (test code = DAVID) 17.6 NG/ML 5.0-323.0 N CALCIUM [id number] 16:50:00 Test Item Value Reference Range Interpretation Comments CALCIUM IONIZED (test code = NAVEED) 1.12 mmol/L 1.12-1.32 N - XR ABDOMEN 1 [id number] 10:29:00 Name: DORA JOSEPH [facility] : 1970 Age/S: 49 / M [address] [address] [place] Unit #: [id number] Loc: [place] [address] Phys: Verona Frost PA-C Acct: [id number] Dis Date: Status: ADM IN PHONE #: [phone] Exam Date: 01/07/2020 0712 FAX #: Reason: reassess SBO EXAMS: CPT: [id number] XR ABDOMEN 1 V 55877 Fluoro Time: DAP (Gy m2): Air Kerma [...] 1 Signed Report Name: DORA JOSEPH [facility] : 1970 Age/S: 49 / M [address] [facility] Unit #: [id number] Loc: [place] [address] Phys: Verona Frost PA-C Acct: [id number] Dis Date: Status: ADM IN PHONE #: [phone] Exam Date: 01/07/2020 0712 FAX #: Reason: reassess SBO EXAMS: CPT: [id number] XR ABDOMEN 1 V 76545 Fluoro Time: DAP (Gy m2): Air Kerma (mGy): <Continued> Technologist: Alexander De Leon RT(R)(CT) Trnscb Date/Time: 01/07/2020 (1029) Katelynn Orig Print D/T: S: 01/07/2020 (4263) PAGE 2 Signed ReportBASIC METABOLIC PANEL 2020-01-07 [...] CA) 5.4 MG/DL 8.5-10.1 LL CBC W/AUTO [id number] 06:49:00 Test Item Value Reference Range Interpretation [...] = NO DIFF/SCN CRITERIA MDIFF) COMPREHENSIVE METABOLIC [id number] 06:10:00 Test Item Value Reference Range Interpretation [...] TOTAL (test code = ALKP) CBC W/AUTO [id number] 05:52:00 Test Item Value Reference Range Interpretation [...] DIFF/SCN CRITERIA MDIFF) - XR ABDOMEN 1 [id number] 01:30:00 [facility] 1970 [facility]: 49 / M [address] [facility] Unit #: [id number] Loc: [place] [address] Phys: Ted Coleman COATER SMOKING PIPE Acct: [id number] Dis Date: Status: ADM IN PHONE #: [phone] Exam Date: 01/06/2020 010 FAX #: Reason: NG Tube Placement Verification EXAMS: CPT: [id number] XR ABDOMEN 1 V 20460 Fluoro Time: DAP (Gy m2): Air Kerma (mGy): Exam: KUB. Location: H 12 History: NG Tube Placement Verification Findings: A supine view of the abdomen demonstrates g aseous distention of the colon. A nasogastric tube is in place, the tip is in the stomach. No organomegaly, abnormal masses or calcifications are seen. No pneumatosis or free air is present. Impression: Satisfactory nasogastric tube placement. at 0130 Reported and signed by: Teo Do M.D. CC: Mark Perea MD; Rafael Coleman NP PAGE 1 Signed Report Name: DORA JOSEPH [facility] : 1970 Age/S: 49/ M [address] [facility] Unit #: [id number] Loc: [place] [address] Phys: Ted Coleman COATER SMOKING PIPE Acct: [id number] Dis Date: Status: ADM IN PHONE #: [phone] Exam Date: 01/06/2020 0100 FAX #: Reason:NG Tube Placement Verification EXAMS: CPT: [id number] XR ABDOMEN 1 V 58682 Fluoro Time: DAP (Gy m2):Air Kerma (mGy): <Continued> Technologist: RT Tatum([place]) Trnjamesb Date/Time: 01/06/2020 (129) Herrera Orig Print D/T: S: 01/06/2020 (132) PAGE 2 Signed Report- CT ABD PELVIS W/O [id number] 19:42:00 [place]: St: REG -- Name: DORA JOSEPH [facility] : 1970 Age/S: 49/M [address] Unit: [id number] Loc: [place], [place]: [place] [address] Acct: [id number] Dis Date: Status: REG ER PHONE #: [phone] Exam Date: 12/13/20191924 FAX #: [phone] Reason: pain EXAMS: CPT CODE: [id number] CT ABD PELVIS W/O CONT 61260 Examination: CT scan abdomen and pelvis without contrast. Location code: H 60. TECHNIQUE: Multiple axial images of the abdomen and pelvis were obtained without intravenous administration of contrast with sagittal and coronal reconstructions. CT exam w as performed using automated dose reduction. COMPARISON: 02/28/2013. [...] are noted. There is significant distention of thetransverse colon. This finding was also described on [...] Technologist: SUJATA ALMANZAR Trnscrd Dt/Tm: 12/13/2019 (1941) [email or web address] Orig P rint D/T: S: 12/13/2019 (5 PAGE 1 Signed [...] code = CA) 8.6 mg/dl 8.0-10.5 N [id number] 18:49:00 Test Item Value Reference Range Interpretation Comments LIPASE (test code = LIP) 97 Units/L 65.0-230.0 N CBC W/AUTO [id number] 18:38:00 Test Item Value Reference Range Interpretation [...] K/mm3 0.0-0.2 N - XR CHEST 1 [id number] 18:36:00 [place]: St: PRE -- Name: DORA JOSEPH [facility] : 1970 Age/S: 49/M [address] Unit #: [id number] Loc: [place], [place]: [place] [address] Acct: [id number] Dis Date: Status: PRE ER PHONE #: [phone] Exam Date: 12/13/20191821 FAX #: [phone] Reason: SOB EXAMS: CPT CODE: [id number] XR CHEST 1 V 03201 Examination: One view chest x-ray Location code: [...] : By: [email or web address] PAGE 1 Signed Report [place]: St: PRE ----- Name: ODRA JOSEPH [facility] : 1970 Age/S: 49/M [address] [facility] Unit #: [id number] Loc: [place]: [place] [address] Acct: [id number] Dis Date: Status: PRE ER PHONE #: [phone] Exam Date: 12/13/20191821 FAX #: [phone] Reason: SOB EXAMS: CPT CODE: [id number] XR CHEST 1 V 08007 (Continued) Orig Print D/T: S: 12/13/2019 (183) PAGE 2 Signed ReportCBC W/PLT COUNT & AUTO [id number] 08:02:00 Test Item Value Reference Range Interpretation [...] Received comment: User comments: Slide comments:BASIC METABOLIC [id number] 07:34:00 Test Item Value Reference Range Interpretation [...] S NOT APPLICABLE FOR DIALYSIS PATIEN TS. [id number] 07:26:00 Test Item Value Reference Range Interpretation Comments PHOSPHORUS (BEAKER) (test code = 3.1 mg/dL 2.3-4.7 604) [id number] 07:26:00 Test Item Value Reference Range Interpretation Comments MAGNESIUM (BEAKER) (test code = 1.6 mg/dL 1.6-2.6 627) RAD, ABDOMEN/KUB, 1 VIEW [id number] 07:04:00Reason for exam:->ileusFINAL REPORT Abdomen , one view History: Ileus Comparison: 03/29/2019 Findings:Moderate diffuse distention of both small and large bowel, most suggestive of ileus. Surgical carmenza are seen within the midline. No pneumoperitoneum. No definite bowel pneumatosis or portal venous gas.No calcifications along the expected course of the urinary tract. Impression:Moderate diffuse distention of both small and large bowel, most suggestive of ileus. Signed: Diony Gallegos MDReport Verified Date/Time: 04/03/2019 07:04:46 Reading Location: [facility] B1 C013X Ortho Consult Reading Room BASIC METABOLIC [id number] 06:47:00 Test Item Value Reference Range Interpretation [...] code = 413) URINALYSIS WITH MICROSCOPIC IF [id number] 22:01:00 Test Item Value Reference Range Interpretation [...] code = 463) SOURCE(BEAKER) (test code = 3294) URINALYSIS [id number] 22:01:00 Test Item Value Reference Range Interpretation Comments RBC UA (BEAKER) (test code = 519) 18 /HPF WBC UA (BEAKER) (test code = 520) 1 /HPF CALCIUM OXALATE CRYSTALS (BEAKER) Occasional (test code = 518) [id number] 05:49:00 Test Item Value Reference Range Interpretation Comments PHOSPHORUS (BEAKER) (test code = 2.5 mg/dL 2.3-4.7 604) [id number] 05:49:00 Test Item Value Reference Range Interpretation Comments MAGNESIUM (BEAKER) (test code = 1.7 mg/dL 1.6-2.6 627) BASIC METABOLIC [id number] 05:49:00 Test Item Value Reference Range Interpretation [...] (BEAKER) (test code = 413) BASIC METABOLIC [id number] 06:19:00 Test Item Value Reference Range Interpretation [...] S NOT APPLICABLE FOR DIALYSIS PATIEN TS. [id number] 06:10:00 Test Item Value Reference Range Interpretation Comments MAGNESIUM (BEAKER) 1.8 mg/dL 1.6-2.6 Specimen slightly (test code = 627) hemolyzed [id number] 06:10:00 Test Item Value Reference Range Interpretation [...] (BEAKER) (test code = 413) BASIC METABOLIC [id number] 04:57:00 Test Item Value Reference Range Interpretation [...] S NOT APPLICABLE FOR DIALYSIS PATIEN TS. [id number] 04:55:00 Test Item Value Reference Range Interpretation Comments PHOSPHORUS (BEAKER) (test code = 2.6 mg/dL 2.3-4.7 604) [id number] 04:55:00 Test Item Value Reference Range Interpretation Comments MAGNESIUM (BEAKER) (test code = 1.8 mg/dL 1.6-2.6 627) CT, [id number] 14:16:00FINAL REPORT TECHNIQUE: CT of the abdomen [...] Pope MDReport Verified Date/Time: 03/29/2019 14:16:01Reading Location: [facility] B1 C013Y CT Body Reading Room , ABDOMEN/KUB, 1 VIEW [id number] 10:23:00Reason for exam:->evaluate ileusFINAL REPORT Technique: Supine [...] Urbinaeport Verified Date/Time: 03/29/2019 10:23:29 Reading Location: [facility] Reading Room CBC (HEMOGRAM ONLY)2019-03-29 08:10:00 Test [...] WBC 0-0 (BEAKER) (test code = 413) [id number] 06:20:00 Test Item Value Reference Range Interpretation Comments PHOSPHORUS (BEAKER) (test code = 2.6 mg/dL 2.3-4.7 604) [id number] 06:20:00 Test Item Value Reference Range Interpretation Comments MAGNESIUM (BEAKER) (test code = 2.0 mg/dL 1.6-2.6 627) BASIC METABOLIC [id number] 06:20:00 Test Item Value Reference Range Interpretation [...] TS. RAD, ABDOMEN SERIES W/ UPRIGHT PA [id number] 22:18:00Reason for exam:- >eval ileusFINAL REPORT CLINICAL [...] evaluation with CT abdomen pelvis. Signed: Jian Powerseport Verified Date/Time: 03/28/2019 22:18:50 RAD, ABDOMEN/KUB, 1 VIEW [id number] 11:23:00Reason for exam:->abdominal distensionShould this be performed [...] focal transition point is identified. Signed: Candido Ontiveroseport Verified Date/Time: 03/28/2019 11:23:34 Reading Location: [facility] Radiology Reading Room TISSUE [id number] 09:00:00Surgical Pathology Report Case: [id number] Authorizing Provider: Graciela Garrison MD Collected: 03/25/2019 1133 Ordering Location: [facility] PERIOPERATIVE Received: 03/25/2019 1527 SERVICES [...] FOR MALIGNANCY Signing Pathologist Direct Phone Line: [phone] signed by Jordan Celaya MD on 03/28/2019 at 9:00 [id number] and postop diagnosis: ileostomy statusA. End ileostomy;B. Appendix A. Received fresh labeled with the patient's name, accession number and "end ileostomy" is an unoriented segment of small bowel measuring 4 cm in length and 5 cm in diameter with a minimal amount of attached mesentery. Also received is a second segment of unoriented small bowel measuring 3cm in length and ranging 1.7-5.5 cm in diameter which has a small amount of mesentery with a focal area of necrosis and hemorrhage. Each segment of small bowel is opened to reveal focal areas of submucosal hemorrhage. In the area of dilatation of the second mentioned segment of small bowel are focal ar eas of mucosal hemorrhage. Skin is not grossly identified on either segment. The mucosa is slightly edematous. No gross lesions are identified. Lymph nodes are not identified in the mesentery. Mine Technician sections are submitted. Section code: A, account development representative section of each end of first mentionedsegment of small bowel; A2, account development representative of first mentioned segment of small bowel mucosa; A3, area of hemorrhagic mesentery of second mentioned segment of mucosa; A4, account development representative of hemorrhagic mucosa at open end of second portion of small bowel; A5, account development representative of stapled margin from second mentioned [...] 0.2 cm. No gross lesions are identified. Mine Technician sections are submitted. Section code: B1, proximal margin en face and tip; B2, account development representative cross section. CG/pl Performed.[id number] 06:23:00 Test Item Value Reference Range Interpretation Comments PHOSPHORUS (BEAKER) (test code = 2.7 mg/dL 2.3-4.7 604) [id number] 06:23:00 Test Item Value Reference Range Interpretation Comments MAGNESIUM (BEAKER) (test code = 1.9 mg/dL 1.6-2.6 627) BASIC METABOLIC [id number] 06:23:00 Test Item Value Reference Range Interpretation [...] S NOT APPLICABLE FOR DIALYSIS PATIEN TS. [id number] 08:20:00 Test Item Value Reference Range Interpretation Comments PHOSPHORUS (BEAKER) (test code = 2.6 mg/dL 2.3-4.7 604) [id number] 08:20:00 Test Item Value Reference Range Interpretation Comments MAGNESIUM (BEAKER) (test code = 1.8 mg/dL 1.6-2.6 627) BASIC METABOLIC [id number] 08:20:00 Test Item Value Reference Range Interpretation [...] S NOT APPLICABLE FOR DIALYSIS PATIEN TS. [id number] 06:06:00 Test Item Value Reference Range Interpretation Comments PHOSPHORUS (BEAKER) (test code = 4.1 mg/dL 2.3-4.7 604) [id number] 06:06:00 Test Item Value Reference Range Interpretation Comments MAGNESIUM (BEAKER) (test code = 1.8 mg/dL 1.6-2.6 627) BASIC METABOLIC [id number] 06:06:00 Test Item Value Reference Range Interpretation [...] S NOT APPLICABLE FOR DIALYSIS PATIEN TS. [id number] 06:03:00 Test Item Value Reference Range Interpretation Comments PHOSPHORUS (BEAKER) (test code = 4.2 mg/dL 2.3-4.7 604) [id number] 06:03:00 Test Item Value Reference Range Interpretation Comments MAGNESIUM (BEAKER) (test code = 2.0 mg/dL 1.6-2.6 627) BASIC METABOLIC [id number] 06:03:00 Test Item Value Reference Range Interpretation [...] WBC 0-0 (BEAKER) (test code = 413) [id number] 05:52:00 Test Item Value Reference Range Interpretation Comments PHOSPHORUS (BEAKER) (test code = 4.2 mg/dL 2.3-4.7 604) [id number] 05:52:00 Test Item Value Reference Range Interpretation Comments MAGNESIUM (BEAKER) (test code = 1.9 mg/dL 1.6-2.6 627) BASIC METABOLIC [id number] 05:52:00 Test Item Value Reference Range Interpretation [...] S NOT APPLICABLE FOR DIALYSIS PATIEN TS. [id number] 06:51:00 Test Item Value Reference Range Interpretation Comments PHOSPHORUS (BEAKER) (test code = 4.3 mg/dL 2.3-4.7 604) [id number] 06:51:00 Test Item Value Reference Range Interpretation Comments MAGNESIUM (BEAKER) (test code = 2.0 mg/dL 1.6-2.6 627) BASIC METABOLIC [id number] 06:51:00 Test Item Value Reference Range Interpretation [...] 0-0 (BEAKER) (test code = 413) TISSUE [id number] 11:50:00Surgical Pathology Report Case: [id number] Authorizing Provider: Mela Larson MD Collected: 03/18/2019 1827 Ordering Location: [facility] PERIOPERATIVE Received: 03/21/2019 0823 SERVICES Pathologist: Jordan Celaya MD Specimen: Small Bowel, NOS A. SMALL BOWEL, ILEOSTOMY PROLAPSE, TAKEDOWN: - ANASTOMOSIS SITE WITH ACTIVE CHRONIC INFLAMMATION AND FOCAL ISCHEMIC CHANGES - MUCOSAL RESECTIONMARGINS, NEGATIVE FOR MALIGNANCY - ONE BENIGN LYMPH NODE (0/1) - NEGATIVE FOR DYSPLASIA OR MALIGNANCY Signing Pathologist Direct Phone Line: [phone] signed by Jordan Celaya MD on 03/22/2019 at 11:50 [id number] of ileostomyReceived in a container labeled "small [...] 0.5 to 1.2 cm in greatest dimension. Mine Technician sections are submitted as follows: A1-A2, mucosal resection margin, en face; A3-A6, account development representative sections of the possible ostomy stump; A7-A11, serial account development representative sections from mucosal resection margin to the possible ostomy stump; A12, two lymph nodes. TH/plPerformed.[id number] 06:58:00 Test Item Value Reference Range Interpretation Comments PHOSPHORUS (BEAKER) (test code = 3.8 mg/dL 2.3-4.7 604) [id number] 06:58:00 Test Item Value Reference Range Interpretation Comments MAGNESIUM (BEAKER) (test code = 2.0 mg/dL 1.6-2.6 627) BASIC METABOLIC [id number] 06:58:00 Test Item Value Reference Range Interpretation [...] PATIEN TS. CBC W/PLT COUNT & AUTO [id number] 05:42:00 Test Item Value Reference Range Interpretation [...] PERCENT (BEAKER) (test code = 2801) [place], [id number] 17:42:00Reason for exam:->evaluate for colon stricture as [...] Number of images obtained: 11 Signed: Shanelle Lopez MDReport Verified Date/Time: 03/21/2019 17:42:21 Reading Location: [address] Reading Room [id number] 03:58:00 Test Item Value Reference Range Interpretation Comments PHOSPHORUS (BEAKER) (test code = 3.0 mg/dL 2.3-4.7 604) [id number] 03:58:00 Test Item Value Reference Range Interpretation Comments MAGNESIUM (BEAKER) (test code = 2.0 mg/dL 1.6-2.6 627) BASIC METABOLIC [id number] 03:58:00 Test Item Value Reference Range Interpretation [...] PATIEN TS. CBC W/PLT COUNT & AUTO [id number] 03:20:00 Test Item Value Reference Range Interpretation [...] (BEAKER) (test code = 2801) BASIC METABOLIC [id number] 06:26:00 Test Item Value Reference Range Interpretation [...] S NOT APPLICABLE FOR DIALYSIS PATIEN TS. [id number] 06:05:00 Test Item Value Reference Range Interpretation Comments PHOSPHORUS (BEAKER) (test code = 2.2 mg/dL 2.3-4.7 L 604) [id number] 06:05:00 Test Item Value Reference Range Interpretation Comments MAGNESIUM (BEAKER) (test code = 2.0 mg/dL 1.6-2.6 627) CBC W/PLT COUNT & AUTO [id number] 05:25:00 Test Item Value Reference Range Interpretation [...] 0-1 PERCENT (BEAKER) (test code = 2801) [id number] 04:31:00 Test Item Value Reference Range Interpretation Comments PHOSPHORUS (BEAKER) (test code = 3.7 mg/dL 2.3-4.7 604) [id number] 04:31:00 Test Item Value Reference Range Interpretation Comments MAGNESIUM (BEAKER) (test code = 1.9 mg/dL 1.6-2.6 627) BASIC METABOLIC [id number] 04:31:00 Test Item Value Reference Range Interpretation [...] PATIEN TS. CBC W/PLT COUNT & AUTO [id number] 04:15:00 Test Item Value Reference Range Interpretation [...] 0-1 PERCENT (BEAKER) (test code = 2801) [id number] 06:41:00 Test Item Value Reference Range Interpretation Comments PHOSPHORUS (BEAKER) (test code = 3.1 mg/dL 2.3-4.7 604) [id number] 06:41:00 Test Item Value Reference Range Interpretation Comments MAGNESIUM (BEAKER) (test code = 1.9 mg/dL 1.6-2.6 627) BASIC METABOLIC [id number] 06:41:00 Test Item Value Reference Range Interpretation [...] PATIEN TS. CBC W/PLT COUNT & AUTO [id number] 06:36:00 Test Item Value Reference Range Interpretation [...] PERCENT (BEAKER) (test code = 2801) CT, [id number] 17:04:00No PO contrastFINAL REPORT ABDOMINAL AND PELVIS [...] MDReport Verified Date/Time: 03/17/2019 17:04:19 Reading Location: [facility] C013Y CT Body Reading Room XR ABDOMEN 2 [id number] 09:03:45XR ABDOMEN 2 VIEWSLOCATION: [id number]: Colstomy ProlapseCOMPARISON: Chest radiograph 04/15/2017, CT of [...] Nonspecific, nonobstructive bowel gas pattern.XR CHEST 1 [id number] 11:32:15EXAM: CHEST ONE VIEWINDICATION: Chest painCOMPARISON: None availableTECHNIQUE: AP view of the chest.FINDINGS: The cardiomediastinal silhouette is normal. The lungs are clearbilaterally. No pneumothoraxor pleural effusion is identified. Theosseous structures are unremarkable.IMPRESSION: No acute cardiopulmonary process.LOCATION: [id number] Type and [id number] 21:21:00 Test Item Value Reference Range Interpretation Comments ABO type (test code = ABO) O Rh Type (test code = RH) Positive Comprehensive Metabolic [id number] 20:36:00 Test Item Value Reference Range Interpretation [...] is not provided , and the patient isAfdavy-Ammihai can, multiply by 1.2 12. If sex is not prov ided, and thepatient is female, multipl y by 0.742. Results for patients <18 ye ars ofage have not been validated by e MDRD study and rsahi d be interpretedwith caution.eGFR Re sult Interpretation: eGFR > or = 60 is in t he Normal RangeeGF R < 60 may mean kidney diseaseeGFR < 1 5 may mean kidney failureRange s recommended by the National Kidney Foundation,http ://nkd ep.nih.gov Alcohol/Ethanol, [id number] 20:36:00 Test Item Value Reference Range Interpretation Comments Alcohol, Ethyl <0.01 g/dL 0.00-0.01 N Intoxicated 0 .080 g/dL (test code = ETOH) or more Prothrombin [id number] 20:00:00 Test Item Value Reference Range Interpretation Comments PT (test code = PT) 10.10 seconds 9.78-13.35 N INR (test code = INR) 0.88 Ratio 0.6-1.2 N Partial Thromboplastin [id number] 20:00:00 Test Item Value Reference Range Interpretation Comments aPTT (test code = PTT) 31.50 seconds 24.39-37.25 N CBC with [id number] 19:50:00 Test Item Value Reference Range Interpretation [...] code = ALYMPH) 2.2 K/cumm 0.5-4.6 N [place] Abs (test code = AMONO) 0.4 K/cumm 0.0-1.2 N Eos Abs (test code = AEOS) 0.17 K/cumm 0.00-0.74 N Baso Abs (test code = ABASO) 0.0 K/cumm 0.00-0.21 N 70814& PELVIS W/O [id number] 17:36:28CT ABDOMEN AND PELVIS WITHOUT CONTRAST.CLINICAL HISTORY: [...]
--- NOTE | 2022-05-05 18:23 | RAD REPORT ---
EXAM DESCRIPTION: Lucas Rodríguez (2 Views)05/05/2022 5:57 pm CLINICAL HISTORY: Cough COMPARISON: April 28, 2022 FINDINGS: The lungs appear clear of acute infiltrate. The heart is normal size IMPRESSION: No acute abnormalities displayed
--- NOTE | 2022-05-05 19:31 | ER ---
Nurse's Notes [facility] Name: Rico Mcneill Age: 52 yrs Sex: Male : 1970 Arrival Date: 05/05/2022 Time: 15:41 Bed 12 Private MD: Diagnosis: Acute pharyngitis, unspecified;Cough Presentation: 05/05 16:22 Chief complaint: Patient states: "I haven't been able to eat because my throat is aa5 burning for a few days now". Coronavirus screen: sore throat. Ebola Screen: Patient denies travel to an Ebola-affected area in the 21 days before illness onset. Initial Sepsis Screen: Does the patient meet any 2 criteria? No. Patient's initial sepsis screen is negative. Does the patient have a suspected source of infection? No. Patient's initial sepsis screen is negative. Risk Assessment: Do you want to hurt yourself or someone else? Patient reports no desire to harm self or others. Onset of symptoms was April 2022. 16:22 Method Of Arrival: Ambulatory aa5 16:22 Acuity: OCTAVIO 3 aa5 Historical: - Allergies: 16:22 NKDA; aa5 - PMHx: 16:22 SBO; aa5 - PSHx: 16:22 Small bowel resection with ileostomy; aa5 - Immunization history:: Adult Immunizations unknown. - Social history:: Smoking status: Patient reports use of chewing tobacco. Screenin:28 Abuse screen: Denies threats or abuse. Nutritional screening: No deficits noted. bm7 Tuberculosis screening: No symptoms or risk factors identified. Fall Risk None identified. Assessment: 19:28 Reassessment: No changes from previously documented assessment. Patient and/or family bm7 updated on plan of care and expected duration. Pain level reassessed. Patient is alert, oriented x 3, equal unlabored respirations, skin warm/dry/pink. 19:46 Pain: Denies pain. Respiratory: Airway is patent Respiratory effort is even, unlabored, bm7 Breath sounds are clear bilaterally. EENT: Throat is clear is reddened. Vital Signs: 16:22 BP 126 / 72; Pulse 85; Resp 16 S; Temp 99.3(TE); Pulse Ox 100% on R/A; Weight 66.9 kg aa5 (M); Height 6 ft. 1 in. (185.42 cm) (R); 16:22 Body Mass Index 19.46 (66.90 kg, 185.42 cm) aa5 ED Course: 15:41 Patient arrived in ED. am2 15:55 Raffaele Chan, RN is Primary Nurse. bp 15:55 Rashaun Irby PA is PHCP. cp 15:55 Rashaun Jiménez MD is Attending Physician. cp 16:21 Arm band placed on. aa5 16:23 Triage completed. aa5 17:59 XRAY Chest Pa And Lat (2 Views) In Process Unspecified. EDMS 19:28 Patient has correct armband on for positive identification. Client placed on continuous bm7 cardiac and pulse oximetry monitoring. NIBP monitoring applied. Assisted with urinal. 19:28 No provider procedures requiring assistance completed. Patient did not have IV access bm7 during this emergency room visit. Administered Medications: No medications were administered Medication: 19:28 VIS not applicable for this client. bm7 Outcome: 19:31 Discharge ordered by MD. cp 19:46 Discharged to home ambulatory. bm7 19:46 Condition: good 19:46 Discharge instructions given to patient, Demonstrated understanding of instructions, follow-up care, medications, Prescriptions given X 2. 19:47 Patient left the ED. bm7 Signatures: Dispatcher [employer] EDPA Julissa Roy, RN RN aa5 Rashaun Irby PA PA Drea Moran am2 Raffaele Chan, RN RN Jessica Solano RN RN bm7 Corrections: (The following items were deleted from the chart) 16:24 16:22 BP 126 / 72; Pulse 85bpm; Resp 16bpm; Spontaneous; Pulse Ox 100% RA; Temp 99.3F aa5 Temporal; 65.77 kg Reported; Height 6 ft. 1 in. Reported; BMI: 19.1; aa5
--- NOTE | 2022-05-05 19:31 | EDPHYS ---
Physician Documentation [facility] Name: Rico Mcneill Age: 52 yrs Sex: Male : 1970 Arrival Date: 05/05/2022 Time: 15:41 Bed 12 Private MD: ED Physician Rashaun Jiménez HPI: 05/05 16:45 This 52 yrs old Male presents to ER via Ambulatory with complaints of Sore Throat. cp 16:45 The patient presents with sore throat. The patient describes throat pain as scratchy. cp Onset: The symptoms/episode began/occurred last week. Associated signs and symptoms: Pertinent positives: cough, Pertinent negatives: abdominal pain, constipation, fever, shortness of breath, wheezing. Severity of symptoms: in the emergency department the symptoms are unchanged, despite home interventions. Historical: - Allergies: 16:22 NKDA; aa5 - PMHx: 16:22 SBO; aa5 - PSHx: 16:22 Small bowel resection with ileostomy; aa5 - Immunization history:: Adult Immunizations unknown. - Social history:: Smoking status: Patient reports use of chewing tobacco. ROS: 16:50 Constitutional: Negative for body aches, chills, fever, poor PO intake. cp 16:50 Eyes: Negative for injury, pain, redness, and discharge. cp 16:50 ENT: Positive for sore throat, Negative for drainage from ear(s), ear pain, difficulty swallowing, difficulty handling secretions. 16:50 Cardiovascular: Negative for chest pain, edema, palpitations. 16:50 Respiratory: Positive for cough, with no reported sputum, Negative for shortness of breath, wheezing. 16:50 Abdomen/GI: Negative for abdominal pain, vomiting, diarrhea, constipation. 16:50 Neuro: Negative for altered mental status, dizziness, headache, weakness. 16:50 All other systems are negative. Exam: 16:55 Constitutional: The patient appears in no acute distress, alert, awake, cp non-diaphoretic, non-toxic, well developed, well nourished. 16:55 Head/Face: Normocephalic, atraumatic. cp 16:55 Eyes: Periorbital structures: appear normal, Conjunctiva: normal, no exudate, no injection, Sclera: no appreciated abnormality, Lids and lashes: appear normal, bilaterally. 16:55 ENT: External ear(s): are unremarkable, Ear canal(s): are normal, clear, TM's: dullness, bilaterally, Nose: is normal, Mouth: Lips: moist, Oral mucosa: pink and intact, moist, Posterior pharynx: Airway: no evidence of obstruction, patent, Tonsils: with erythema, no enlargement, no exudate, Uvula: midline, non-edematous, swelling, is not appreciated, erythema, that is mild, exudate, is not appreciated, Voice: is normal. 16:55 Neck: ROM/movement: is normal, is supple, without pain, no range of motions limitations, no meningismus. 16:55 Chest/axilla: Inspection: normal. 16:55 Cardiovascular: Rate: normal, Rhythm: regular. 16:55 Respiratory: the patient does not display signs of respiratory distress, Respirations: normal, no use of accessory muscles, no retractions, labored breathing, is not present, Breath sounds: are clear throughout, no decreased breath sounds, no stridor, no wheezing. 16:55 Abdomen/GI: Inspection: RLQ colostomy noted, Palpation: abdomen is soft and non-tender, in all quadrants. 16:55 Neuro: Orientation: to person, place \\T\\ time. Mentation: is normal. Vital Signs: 16:22 BP 126 / 72; Pulse 85; Resp 16 S; Temp 99.3(TE); Pulse Ox 100% on R/A; Weight 66.9 kg aa5 (M); Height 6 ft. 1 in. (185.42 cm) (R); 16:22 Body Mass Index 19.46 (66.90 kg, 185.42 cm) aa5 MDM: 17:00 Differential diagnosis: viral Infection, bacterial infection, bronchitis, pneumonia. cp 18:48 Patient medically screened. [facility] 19:31 Data reviewed: vital signs, nurses notes, lab test result(s), radiologic studies, plain cp films. 19:31 Test interpretation: by ED physician or midlevel provider: plain radiologic studies. cp Counseling: I had a detailed discussion with the patient and/or guardian regarding: the historical points, exam findings, and any diagnostic results supporting the discharge/admit diagnosis, lab results, radiology results, to return to the emergency department if symptoms worsen or persist or if there are any questions or concerns that arise at home. 05/05 16:34 Order name: COVID-19 SARS RT PCR (Document "Date of Onset" if Symptomatic); Complete cp Time: 19:30 05/05 16:34 Order name: Strep; Complete Time: 17:20 cp 05/05 17:20 Interpretation: Reviewed. cp 05/05 16:34 Order name: XRAY Chest Pa And Lat (2 Views); Complete Time: 19:30 cp 05/05 17:22 Order name: Throat Culture EDMS Administered Medications: No medications were administered Disposition Summary: 05/05/22 19:31 Discharge Ordered Location: Home cp Problem: new cp Symptoms: have improved cp Condition: Stable cp Diagnosis - Acute pharyngitis, unspecified cp - Cough cp Followup: cp - With: Private Physician - When: 2 - 3 days - Reason: Worsening of condition Discharge Instructions: - Discharge Summary Sheet cp - Pharyngitis cp - Sore Throat cp - Cough, Adult cp Forms: - Medication Reconciliation Form cp - Thank You Letter cp - Antibiotic Education cp - Prescription Opioid Use cp Prescriptions: - Amoxicillin 875 mg Oral Tablet - take 1 tablet by ORAL route every 12 hours for 10 days; 20 tablet; Refills: 0, cp Product Selection Permitted - Tessalon Perles 100 mg Oral Capsule - take 1 capsule by ORAL route every 8 hours As needed; 15 capsule; Refills: 0, cp Product Selection Permitted Signatures: Dispatcher [employer] Rashaun Delarosa MD MD cha Calderon, Audri, RN RN aa5 Rashaun Irby PA PA cp
[2022-05-05 21:19] VITALS: BP 126/72; TEMP 99.3; O2SAT 100
== END 2022-05-05 19:47 | disposition home or self-care (01) ==
LOC: ER 15:40
DX: J02.9 Acute pharyngitis, unspecified (principal); R05.9 Cough, unspecified; F17.220 Nicotine dependence, chewing tobacco, uncomplicated; Z20.822 Contact with and (suspected) exposure to COVID-19
CPT/HCPCS: 71046; 87070; 87081; 99283; U0003

== ENCOUNTER 2022-05-10 10:43 | Inpatient (IN) | payer SELFPAY ==
[2022-05-10 11:30] LABS: Absolute Lymphocytes (CBC) 1.6 K/uL (0.7-4.9); Hematocrit 35.7 % (39.6-49.0); Lymphocytes % 24.8 % (15.3-44.8); MCV 83.1 fL (80-100); MPV 7.8 fL (7.6-11.3); RBC Red Blood Cell Count 4.29 M/uL (4.33-5.43)
[2022-05-10] MEDS ORDERED: NA CHLORIDE 0.9% 1,000 ML ONE (11:30)
--- OUTSIDE RECORDS SUMMARY | 2022-05-10 11:31 | XMS REPORT | Continuity of Care Document ---
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 Medica l injection 5 Mon Branch mL 09/02/21 at 1530, Routine
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 Restricted medication : CAMILA GREGORY NaCl 0.9% 2021- No 500mL at 999 Univ ers (NS) bolus 09-01-09 mL/hr, 500 it y of infusion 23:15: 22:18 mL, IV [place] 500 mL 00 :00 Piggyback, Medical ONCE, 1 Branch dose, On 09/01/21 at 1715, JOÃO NaCl 0.9% 0 2021- No 1000mL at 75 Univ ers (NS) IV 09-01-09 mL/hr, IV ity of infusion 14:00: 16:07 Infusion, [place] 1,000 mL 00 :36 CONTINUOUS Medic al , Starting Branch on 09/01/21 at 0800, Until 09/01/21 at 1007, Routine NaCl 0.9% 0 2021- No 1000mL at 999 Uni vers (NS) bolus 08-31 01-08 mL/hr, ity of infusion 15:15: 15:11 1,000 mL, [place] 1,000 mL 00 :00 IV Medical Infusion, Branch ONCE, 1 dose, On 08/31/21 at 0915, STAT pantoprazol 2021-0 Yes 40mg 40 mg, Univ ers e 1-08 Oral, ity of (PROTONIX) 15:00: DAILY, [place] EC tablet 00 First dose Medi mariusz 40 mg on Sat Branch 08/31/21 at 0900, Until Discontinu ed, Routine pantoprazol 2-0 Yes 40mg 40 mg, Univ ers e 1-08 Oral, ity of (PROTONIX) 15:00: DAILY, [place] EC tablet 00 First dose Medi mariusz 40 mg on Sat Branch 08/31/21 at 0900, Until Discontinu ed, Routine loperamide 2021-0 Yes 2mg 2 mg, Univer s (IMODIUM 1-08 Oral, BID, ity o f A-D) 14:00: First dose [place] capsule 2 00 on [facility] Medical mg 08/31/21 at Branch 0800, Until Discontinu ed, Routine psyllium 2022-0 Yes 1{packe 1 Packet, U nivers (METAMUCIL 1-08 t} Oral, BID, ity of FIBER 14:00: First dose [place] SINGLES) 00 on [facility] Medical 3.4 gram 08/31/21 at Branch packet [...] First dose [place] capsule 2 00 on [facility] Medical mg 08/31/21 at Branch 0800, Until Discontinu ed, Routine psyllium 2022-0 Yes 1{packe 1 Packet, U nivers (METAMUCIL 1-08 t} Oral, BID, ity of FIBER 14:00: First dose [place] SINGLES) 00 on [facility] Medical 3.4 gram 08/31/21 at Branch packet [...] 1-08 Oral, ity of (TYLENOL) 06:03: Q6HPRN, [place] tablet 650 36 Starting Medic al mg on Sat Branch 08/31/21 at 0003, Until Discontinu ed, Routine, Pain (scale 1-3) acetaminoph Yes 650mg 650 mg, Un piyush en 08-31 Oral, ity of (TYLENOL) 06:03: Q6HPRN, [place] tablet 650 36 Starting Medic al mg [...] dose, On Medical 1,000 mg [place] 08/29/21 Bran h at 1830, Routine lidocaine No 10mL 10 mL, Unive rs 2% viscous 08-30 Oral, ity of (LIDOCAINE 00:30: 00:20 ONCE, 1 [place] VISCOUS) 2 00 :00 dose, On Medic al % solution [facility] 08/29/21 Bra nch 10 mL at 1830, JOÃO benzonatate 2021- No 100mg 100 mg, U nivers (TESSALON 08-30 Oral, ity of PERLES) 00:30: 00:22 ONCE, 1 [place] capsule 100 00 :00 dose, On Medi mariusz mg [place] 08/29/21 Branch at 1830, Routine No known No Univers medications 1-06 ity of 19:35: [place] 26 Medical Branch NaCl 0.9% 2020-08 Yes [...] of 20 mEq RTU 15:00: 15:56 CONTINUOUS [place] 20 mEq/L 00 :45 , Starting Medic al 1,000 mL IV on Thu Branch Solution 08/02/21 at 0900, Until [place] 08/04/21 at 0956, 1,000 mL, at 100 [...] Until Discontinu ed, Routine iopamidol 2020-08- No [id number] 100mL 100 mL, Univers (ISOVUE 10-01 Intravenou ity o f 370-500 mL) 05:14: 05:14 s, ONCE, 1 [place] injection 00 :00 dose, On Medica l 100 mL [facility] 07/30/21 at 2315, Routine morpHINE 2020-08 No 2mg 2 mg, Slow Un piyush injection 2 09-30 IV Push, ity of mg 17:00: 17:10 ONCE, 1 [place] 00 :00 dose, On Medical [facility] 07/30/21 at 1115, Routine enoxaparin 2020-08 Yes 40mg 40 mg, Unive rs (LOVENOX) 09-30 Subcutaneo ity of injection 15:00: us, DAILY, [place] 40 mg 00 First dose Medical (after Branch last modificati on) on [facility] 07/30/21 at 0900, Until Discontinu ed, Routine pantoprazol 2020-08 No 40mg 40 mg, Uni vers e 09-3010 Oral, ity of (PROTONIX) 15:00: 13:40 DAILY, [place] EC tablet 00 :20 First dose Medi mariusz 40 mg on [facility] 07/30/21 at 0900, Until Discontinu ed, Routine loperamide 2020-08 No 4mg 4 mg, Unive rs (IMODIUM 09-30 Oral, TID, ity of A-D) 14:00: 13:19 First dose [place] capsule 4 00 :28 on [facility] Medical mg 07/30/21 at Branch 0800, Until Discontinu ed, Routine psyllium 2020-08- No 1{packe 1 Packet, Univers (METAMUCIL 09-30 t} Oral, TID, it y of FIBER 14:00: 13:19 First dose [place] SINGLES) 00 :28 on [facility] Medical 3.4 gram 07/30/21 at [facility] h packet 1 0800, Packet Until Discontinu [...] IV Push, ity of (PF)) 06:10: Administer [place] injection 4 46 over 15 Medic al [...] 2-07 Oral, ity of (TYLENOL) 06:10: Q6HPRN, [place] tablet 650 40 Starting Medic al mg on Thu Branch 07/30/21 at 0010, Until Discontinu ed, Routine, Pain (scale 1-3) morpHINE 2020-08- No 4mg 4 mg, Slow Un piyush injection 4 2-07 12-07 IV Push, ity of mg 03:30: 02:55 ONCE, 1 [place] 00 :00 dose, On Medical Mon Branch 07/29/21 at 2130, STAT psyllium 2020-08 Yes [id number] 1{packe Take 1 [facility] 3.4 gram 2-03 t} Packet by ity of packet 00:00: mouth 3 [place] 00 (three) Medical times Branch daily. loperamide 2020-08 Yes [id number] 4mg Take 2 Univers 2 mg 2-03 capsules ity of capsule 00:00: by mouth 3 [place] 00 (three) Medical times Branch daily. pantoprazol 2020-08 Yes [id number] 40mg Take 1 Univers e 40 mg EC 2-03 tablet by ity of tablet 00:00: mouth [place] 00 daily. Medical Branch psyllium 2020-08 Yes [id number] 1{packe Take 1 [facility] 3.4 gram 2-03 t} Packet by ity of packet 00:00: mouth 3 [place] 00 (three) Medical times Branch daily. loperamide 2020-08 Yes [id number] 4mg Take 2 Univers 2 mg 2-03 capsules ity of capsule 00:00: by mouth 3 [place] 00 (three) Medical times Branch daily. pantoprazol 2020-08 Yes [id number] 40mg Take 1 Univers e 40 mg EC 2-03 tablet by ity of tablet 00:00: mouth [place] 00 daily. Medical Branch psyllium 2020-08- No [id number] 1{packe Take 1 Univers 3.4 gram 2-03 12-13 t} Packet by ity o f packet 00:00: 00:00 mouth 3 [place] 00 :00 (three) Medical times Branch daily. loperamide 2020-08- No [id number] 4mg Take 2 Univers 2 mg 2-03 12-13 capsules ity of capsule 00:00: 00:00 by mouth 3 [place] 00 :00 (three) Medical times Branch daily. pantoprazol 2020-08- No [id number] 40mg Take 1 Univers e 40 mg EC 2-03 12-13 tablet by ity of tablet 00:00: 00:00 mouth [place] 00 :00 daily. Medical Branch psyllium 2020-08- No [id number] 1{packe Take 1 Univers 3.4 gram 2-03 12-03 t} Packet by ity o f packet 00:00: 00:00 mouth 3 [place] 00 :00 (three) Medical times Branch daily for 90 days. loperamide 2020-08- No [id number] 4mg Take 2 Univers 2 mg 2-03 12-03 capsules ity of capsule 00:00: 00:00 by mouth 3 [place] 00 :00 (three) Medical times Branch daily for 90 days. pantoprazol 2020-08- No [id number] 40mg Take 1 Univers e 40 mg EC 2-03 12-03 tablet by ity of tablet 00:00: 00:00 mouth [place] 00 :00 daily for Medical 90 days. Branch psyllium 2020-08- No [id number] 1{packe Take 1 Univers 3.4 gram 2-07-26 t} Packet by ity o f packet 00:00: 00:00 mouth 3 [place] 00 :00 (three) Medical times Branch daily. pantoprazol 2020-08- No [id number] 40mg Take 1 Univers e 40 mg EC 207-26 tablet by ity of tablet 00:00: 00:00 mouth [place] 00 :00 daily. Medical Branch loperamide 2020-08- No [id number] 4mg Take 2 Univers 2 mg 2-11 02- capsules ity of capsule 00:00: 00:00 by mouth 3 [place] as 00 :00 (three) Medical times [place] daily. psyllium 2020-08- No [id number] 1{packe Take 1 Univers 3.4 gram 207-26 t} Packet by ity o f packet 00:00: 00:00 mouth 3 [place] 00 :00 (three) Medical times [place] daily. loperamide 2020-08- No [id number] 4mg Take 2 Univers 2 mg 2-11 02- capsules ity of capsule 00:00: 00:00 by mouth 3 [place] as 00 :00 (three) Medical times [place] daily. pantoprazol 2020-08- No [id number] 40mg Take 1 Univers e 40 mg EC 09-26 tablet by ity of tablet 00:00: 00:00 mouth [place] 00 :00 daily. Medical Branch pantoprazol 2020-08 Yes 40mg 40 mg, Univ ers e 2-02 Oral, ity of (PROTONIX) 15:00: DAILY, [place] EC tablet 00 First dose Medi mariusz 40 mg on [facility] Branch 07/25/21 at 0900, Until Discontinu ed, Routine psyllium 2020-08 Yes 1{packe 1 Packet, U nivers (METAMUCIL 2-02 t} Oral, TID, ity of FIBER 14:00: First dose [place] SINGLES) 00 (after Medical 3.4 gram last Branch packet 1 modificati Packet on) on [facility] 07/25/21 at 0800, Until Discontinu ed, Routine diphenoxyla 2020-08- No 1{tbl} 1 tablet, Univers te-atropine 09-2503 Oral, BID, i ty of (LOMOTIL) 14:00: [...] 1000mL at 999 Uni vers (NS) IV 09-24- mL/hr, IV ity of infusion 22:45: 21:43 Infusion, [place] 1,000 mL 00 :00 ONCE, 1 Medical dose, On Branch Thu07/24/21 at 1645, Routine lactated 2020-08 No 500mL at 999 Unive rs ringers IV 09-24- mL/hr, 500 it y of infusion 17:15: [...] 0145, Until Discontinu ed D5W 0.45% 2020-08- IV Univers NaCl 09-22 Infusion, ity of (1/2NS) 1 L 07:45: 16:08 at 125 [place]avi as + KCL 20 00 :16 mL/hr, Medical mEq CONTINUOUS Branch , Starting on Thu07/23/21 at 0145, Until Thu07/24/21 at 1008, Routine ondansetron 2020-08 Yes 4mg 4 mg, Slow Univers (ZOFRAN 130 IV Push, ity of (PF)) 07:31: Administer [place] injection 4 37 over 15 Medic al mg Minutes, Branch Q6HPRN, Starting on Thu07/23/21 at 0131, Until Discontinu ed, Routine, Nausea and Vomiting (N/V) acetaminoph 2020-08 Yes 650mg 650 mg, Un piyush en 130 Oral, ity of (TYLENOL) 07:31: Q6HPRN, [place] tablet 650 37 Starting Medic al mg on Thu07/23/21 at 0131, Until Discontinu ed, Routine, Pain (scale 1-3) NaCl 0.9% 2020-08 1000mL at 999 Uni vers (NS) bolus 1-30 11-30 mL/hr, ity of infusion 06:46: 07:00 1,000 mL, [place] 1,000 mL 00 :00 IV Medical Piggyback, Branch ONCE, 1 dose, On [facility] 07/23/21 at 0100, STAT heparin 2020-08 Yes 5000U 5,000 Univers (porcine) 0-09 Units, ity of injection 22:00: Subcutaneo [place] 5,000 Units 00 us, Q8H, Medi mariusz First dose Branch on [facility] 06/01/21 at 1700, Until Discontinu ed, Routine pantoprazol 2020-08 Yes 40mg 40 mg, Univ ers e 0-09 Oral, BID, ity of (PROTONIX) 14:45: First dose [place] EC tablet 00 on [facility] Medical 40 mg 06/01/21 at Branch 0945, Until Discontinu ed, Routine psyllium 2020-08 Yes 1{packe 1 Packet, U nivers (METAMUCIL 0-09 t} Oral, ity of FIBER 14:45: DAILY, [place] SINGLES) 00 First dose Medic al 3.4 gram on [facility] Branch packet 1 06/01/21 at Packet 0945, Until Discontinu ed, Routine traMADoL 2020-08 Yes 50mg 50 mg, Univers (ULTRAM) 0-09 Oral, ity of tablet 50 14:39: Q6HPRN, [place] mg 34 Starting Medical on [facility] Branch 06/01/21 at 0939, Until Discontinu ed, Routine, Pain (scale 4-6) HYDROcodone 2020-08 Yes 1{tbl} 1 tablet, Univers -acetaminop 0-09 Oral, ity of hen (NORCO 14:39: Q6HPRN, [place] 5) 5-325 mg 16 Starting Medi mariusz tablet 1 on [facility] Branch tablet 06/01/21 at 0939, Until Discontinu ed, Routine, Pain (scale 7-10) ondansetron 2020-08 Yes 4mg 4 mg, Slow Univers (ZOFRAN 0-09 IV Push, ity of (PF)) 14:38: Q6HPRN, [place] injection 4 58 Starting Medi mariusz mg on Sat Branch 06/01/21 at 0938, Until Discontinu ed, Routine, Nausea and Vomiting (N/V) acetaminoph 2020-08 Yes 650mg 650 mg, Un piyush en 0-09 Oral, ity of (TYLENOL) 14:36: Q6HPRN, [place] tablet 650 07 Starting Medic al mg on [facility] Branch 06/01/21 at 0936, Until Discontinu ed, Routine, Pain (scale 1-3), Temp > 38.5 C NaCl 0.9% 2020-08- No 1000mL at 125 Uni vers (NS) IV 0-09 10-10 mL/hr, ity of infusion 02:15: 14:57 Intravenou [place] 1,000 mL 00 :33 s, Medical CONTINUOUS Branch , Starting on Thu05/31/21 at 2115, Until 06/02/21 at 0957, Routine NaCl 0.9% 2020-08 No 1000mL at 999 Uni vers (NS) bolus 0-09 10-09 mL/hr, ity of infusion 01:45: 00:58 1,000 mL, [place] 1,000 mL 00 :00 IV Medical Piggyback, Branch ONCE, 1 dose, On Thu05/31/21 at 2045, STAT iopamidol 2020-08- No [id number] 100mL 100 mL, Univers (ISOVUE 0-09 10-09 Intravenou ity o f 370-500 mL) 00:30: 00:30 s, ONCE, 1 [place] injection 00 :00 dose, On Medica l 100 mL Fri Branch 05/31/21 at 1930, Routine morpHINE 2020-08- No 4mg 4 mg, Slow Un piyush injection 4 0-08 10-08 IV Push, ity of mg 23:30: 22:48 ONCE, 1 [place] 00 :00 dose, On Medical Fri Branch [...] On Thu05/31/21 at 1830, STAT psyllium Yes [id number] 1{packe Take 1 Univers 3.4 gram 9-29 t} Packet by ity of packet 00:00: mouth [place] 00 daily. Medical Branch psyllium 0 Yes [id number] 1{packe Take 1 Univers 3.4 gram 9-29 t} Packet by ity of packet 00:00: mouth [place] 00 daily. [facility] Branch psyllium 0 Yes [id number] 1{packe Take 1 Univers 3.4 gram 9-29 t} Packet by ity of packet 00:00: mouth [place] 00 daily. [facility] Branch psyllium Yes [id number] 1{packe Take 1 Univers 3.4 gram 9-29 t} Packet by ity of packet 00:00: mouth [place] 00 daily. [facility] Branch psyllium Yes [id number] 1{packe Take 1 Univers 3.4 gram 9-29 t} Packet by ity of packet 00:00: mouth [place] 00 daily. [facility] psyllium 2020- No [id number] 1{packe Take 1 Univers 3.4 gram 9-29 12-13 t} Packet by ity o f packet 00:00: 00:00 mouth [place] 00 :00 daily. [facility] Branch enoxaparin Yes 40mg 40 [...] 07 :07 Starting Medical on Thu05/20/21 at 1915, Until Thu05/22/21 at 1914, Routine, Pain (scale 4-6) acetaminoph Yes 650mg 650 mg, Un piyush en 05-21 Oral, ity of (TYLENOL) 00:15: Q6HPRN, [place] tablet 650 01 Starting Medic al mg [...] t} Oral, ity of FIBER 22:15: DAILY, [place] SINGLES) 00 First dose Medic al 3.4 [...] ity of (PF)) 21:00: 20:15 ONCE, 1 [place] injection 4 00 :00 dose, On Medi mariusz mg [facility] 05/20/21 at 1600, JOÃO morpHINE 2020- No 4mg 4 mg, Slow Un piyush injection 4 05-20 IV Push, ity of mg 21:00: 20:15 ONCE, 1 [place] 00 :00 dose, On Medical [facility] 05/20/21 at 1600, STAT NaCl 0.9% 2020- No 500mL at 999 Univ ers (NS) bolus 05-20 mL/hr, 500 it y of infusion 21:00: 21:00 mL, IV [place] 500 mL 00 :00 [facility] ONCE, 1 [place] dose, On [facility] 05/20/21 at 1600, STAT pantoprazol Yes 40mg 40 mg, Univ ers e 9-17 Oral, BID, ity of (PROTONIX) 01:00: First dose [place] EC tablet 00 on [facility] Medical 40 mg 05/09/21 at [place] 1999, Until Discontinu ed, Routine pantoprazol Yes 40mg 40 mg, Univ ers e 9-17 Oral, BID, ity of (PROTONIX) 01:00: First dose [place] EC tablet 00 on [facility] Medical 40 mg 05/09/21 at [place] 1999, Until Discontinu ed, Routine pantoprazol 2020- No [id number] 40mg Take 1 Univers e 40 mg EC 9-16 11-16 tablet by ity of tablet 00:00: 05:59 mouth 2 [place] 00 :00 (two) [facility] daily pantoprazol 2020- No [id number] 40mg Take 1 Univers e 40 mg EC 9-16 11-16 tablet by ity of tablet 00:00: 05:59 mouth 2 [place] 00 :00 (two) [facility] daily pantoprazol 2020- No [id number] 40mg Take 1 Univers e 40 mg EC 9-16 11-16 tablet by ity of tablet 00:00: 05:59 mouth 2 [place] 00 :00 (two) [facility] daily pantoprazol 2020- No [id number] 40mg Take 1 Univers e 40 mg EC 9-16 11-16 tablet by ity of tablet 00:00: 05:59 mouth 2 [place] 00 :00 (two) Medical times Branch daily pantoprazol 2020- No [id number] 40mg Take 1 Univers e 40 mg EC 9-16 11-16 tablet by ity of tablet 00:00: 05:59 mouth 2 [place] 00 :00 (two) Medical times Branch daily pantoprazol 2020- No [id number] 40mg Take 1 Univers e 40 mg EC 9-16 11-16 tablet by ity of tablet 00:00: 05:59 mouth 2 [place] 00 :00 (two) Medical times Branch daily pantoprazol 2020- No [id number] 40mg Take 1 Univers e 40 mg EC 9-16 11-16 tablet by ity of tablet 00:00: 05:59 mouth 2 [place] 00 :00 (two) Medical times Branch daily [...] Starting Branch on Thu05/08/21 at 0030, Until 9/15/21 at 0703, Routine pantoprazol 2020- No 40mg [...] IV Push, ity of (PF)) 04:16: Q6HPRN, [place] injection 4 34 Starting Medi mariusz mg on [facility] Branch 05/07/21 at 2316, Until Discontinu ed, Routine, Nausea and Vomiting (N/V) ondansetron Yes 4mg 4 mg, Slow Univers (ZOFRAN 9-15 IV Push, ity of (PF)) 04:16: Q6HPRN, [place] injection 4 34 Starting Medi mariusz mg on [facility] Branch 05/07/21 at 2316, Until Discontinu ed, Routine, Nausea and Vomiting (N/V) morpHINE 2020- No 4mg 4 mg, Slow Un piyush injection 4 05-08 IV Push, ity of mg 04:16: 04:15 Q4HPN, [place] 32 :32 Starting Medical on [facility] 05/07/21 at 2316, Until Thu05/08/21 at 2315, Routine, Pain (scale 7-10) morpHINE 2020- No 4mg 4 mg, Slow Un piyush injection 4 05-0816 IV Push, ity of mg 04:16: 04:15 Q4HP, [place] 32 :32 Starting Medical on [facility] 05/07/21 at 2316, Until Thu05/08/21 at 2315, Routine, Pain (scale 7-10) diazePAM 2020- No 5mg 5 mg, Slow Un piyush (VALIUM) 05-08 IV Push, ity of injection 5 02:45: 02:49 ONCE, 1 [place] mg 00 :00 dose, On [facility] 05/07/21 at 2145, STAT diazePAM 2020-2020- No 5mg 5 mg, Slow Un piyush (VALIUM) 05-08 IV Push, ity of injection 5 02:45: 02:49 ONCE, 1 [place] mg 00 :00 dose, On [facility] 05/07/21 at 2145, STAT iopamidol 2020- No [id number] 100mL 100 mL, Univers (ISOVUE 05-08 Intravenou ity o f 370-500 mL) 02:15: 01:08 s, ONCE, 1 [place] injection 00 :00 dose, On Medica l 100 mL [facility] 05/07/21 at 2115, Routine iopamidol 2020- No [id number] 100mL 100 mL, Univers (ISOVUE 05-08 Intravenou ity o f 370-500 mL) 02:15: 01:08 s, ONCE, 1 [place] injection 00 :00 dose, On Medica l 100 mL [facility] 05/07/21 at 2115, Routine morpHINE 2020-2020- No 4mg 4 mg, Slow Un piyush injection 4 05-08 IV Push, ity of mg 01:45: 00:48 ONCE, 1 [place] 00 :00 dose, On [facility] 05/07/21 at 2044, JOÃO ondansetron 2020-2020- No 4mg 4 mg, Slow Univers (ZOFRAN 05-08 IV Push, ity of (PF)) 01:45: 00:47 ONCE, 1 [place] injection 4 00 :00 dose, On Medi mariusz mg [facility] Branch 05/07/21 at 204, JOÃO morpHINE 2020-2020- No 4mg 4 mg, Slow Un piyush injection 4 05-08 IV Push, ity of mg 01:45: 00:48 ONCE, 1 [place] 00 :00 dose, On [facility] 05/07/21 at 204, JOÃO ondansetron 2020-0 2020- No 4mg 4 mg, Slow Univers (ZOFRAN 05-0815 IV Push, ity of (PF)) 01:45: 00:47 ONCE, 1 [place] injection 4 00 :00 dose, On Medi mariusz mg Tue Branch 05/07/21 at 2045, JOÃO flu vaccine 2020- No .5mL 0.5 mL, Un piyush 6 months 08-24 Intramuscu ity of and up (PF) 17:30: 18:09 lar, ONCE, [place] (FLUZONE 00 :00 1 dose, Medical QUAD 08/24/20 Branch at 1130, (PF)) Routine syringe 0.5 mL sulfamethox 2020- No 1{tbl} 1 tablet, [facility] azole-trime 08-24 Oral, BID, i ty of thoprim 02:00: 13:59 7 doses, [place] (BACTRIM 00 :00 First dose Medic al DS) 800-160 on [place] Branch mg per 08/23/20 tablet 1 at 1999, tablet Last dose on 08/26/20 at 2000, JOÃO
Re ason for Anti-Infec tive: Empiric Therapy for Suspected Infection< br>Empiric Therapy Site: Skin / Soft tissue
Duration of therapy: 72 hours sulfamethox 2020- No [id number] 1{tbl} Take 1 [facility] azole-trime 08-24 tablet by it y of thoprim 00:00: 05:59 mouth 2 [place] 800-160 mg 00 :00 (two) Medical per tablet times Branch daily for 7 days. enoxaparin 2019-08 Yes 40mg 40 mg, Unive rs (LOVENOX) 2- Subcutaneo ity of injection 21:30: us, Q24H, [place] 40 mg 00 First dose Medical on [facility] Branch 08/23/20 at 1530, Until Discontinu ed, Routine docusate 2019-08 Yes 100mg 100 mg, Unive rs (COLACE) 2- Oral, ity of capsule 100 15:00: DAILY, [place] mg 00 First dose Medical on [facility] Branch 08/23/20 at 0900, Until Discontinu [...] f tablet 6 mg 03:12: - SEE [place] 40 [facility] Medical NS, 1 Branch dose, Starting 08/22/20 [...] IV Push, ity of (PF)) 03:12: Q6HPRN, [place] injection 4 08 Starting Medi mariusz mg Wed Branch 08/22/20 at 2112, Until Discontinu ed, Routine, Nausea and Vomiting (N/V) acetaminoph 2019-08 Yes 650mg 650 mg, Un piyush en 2-31 Oral, ity of (TYLENOL) 03:11: Q6HPRN, [place] tablet 650 56 Starting Medic al mg Wed Branch 08/22/20 at 2111, Until Discontinu ed, Routine, Pain (scale 1-3) NaCl 0.9% 2020-1 2020- No 1000mL at 999 Uni vers (NS) bolus 2-30 12-31 mL/hr, ity of infusion 21:45: 00:21 1,000 mL, [place] 1,000 mL 00 :00 IV Medical Infusion, Branch ONCE, 1 dose, 08/22/20 at 1545, JOÃO iohexol 2019-08- No 100mL 100 mL, Unive rs (OMNIPAQUE -17 07-10 Intravenou it y of 350 00:30: 00:14 s, ONCE, 1 [place] BULK-100 00 :00 dose, Mon Medica l mL) 07/09/20 Branch injection at 1830, 100 mL Routine cefTRIAXone 2019-08- No 1000mg 1,000 mg, Univers (ROCEPHIN) 09-08 IV ity of 1,000 mg in 23:30: 00:58 Piggyback, [place] NaCl 0.9% 00 :00 ONCE, 1 Medical [...] Branch ONCE, 1 dose, 07/09/20 at 1645, [facility] amoxicillin 2019-08 Yes [id number] 1{tbl} Take 1 Univers -clavulanat 1-16 tablet by ity of e 875-125 00:00: mouth [place] mg per 00 every 12 Medical tablet (twelve) Branch hours. amoxicillin 2019-08- No [id number] 1{tbl} Take 1 Univers -clavulanat 1-16 08-24 [...] IV Medical Infusion, Branch ONCE, 1 dose, Tu06/05/20 at 0700, JOÃO levoFLOXaci 2019-08- No 750mg [...] of Therapy: 7 days ibuprofen 2019-08 Yes [id number] 800mg Take 1 U nivers 800 mg 0-08 tablet by ity of tablet 00:00: mouth [place] 00 every 6 Medical (six) Branch hours as needed for Pain (scale 4-6). loperamide 2019-08 Yes [id number] 4mg Take 2 U nivers 2 mg 0-08 capsules ity of capsule 00:00: by mouth 4 [place] 00 (four) Medical times Branch daily. diphenoxyla 2019-08 Yes [id number] 1{tbl} Take 1 Univers te-atropine 0-08 tablet by ity of 2.5-0.025 00:00: mouth [place] mg tablet 00 every 8 Medical (eight) Branch hours. psyllium 2019- Yes [id number] 3{packe Take 3 Univers 3.4 gram 0-08 t} Packets by ity o f packet 00:00: mouth 3 [place] 00 (three) Medical times Branch daily. psyllium 2019- Yes [id number] 3{packe Take 3 Univers 3.4 gram 0-08 t} Packets by ity o f packet 00:00: mouth 3 [place] 00 (three) Medical times Branch daily. diphenoxyla 2019-08 Yes [id number] 1{tbl} Take 1 Univers te-atropine 0-08 tablet by ity of 2.5-0.025 00:00: mouth [place] mg tablet 00 every 8 Medical (eight) Branch hours. loperamide 2020-1 Yes [id number] 4mg Take 2 U nivers 2 mg 0-08 capsules ity of capsule 00:00: by mouth 4 [place] 00 (four) Medical times Branch daily. ibuprofen 2020-1 Yes [id number] 800mg Take 1 U nivers 800 mg 0-08 tablet by ity of tablet 00:00: mouth [place] 00 every 6 Medical (six) Branch hours as needed for Pain (scale 4-6). psyllium 2020-1 Yes [id number] 3{packe Take 3 Univers 3.4 gram 0-08 t} Packets by ity o f packet 00:00: mouth 3 [place] 00 (three) Medical times Branch daily. diphenoxyla 2020-1 Yes [id number] 1{tbl} Take 1 Univers te-atropine 0-08 tablet by ity of 2.5-0.025 00:00: mouth [place] mg tablet 00 every 8 Medical (eight) Branch hours. loperamide 2020-1 Yes [id number] 4mg Take 2 U nivers 2 mg 0-08 capsules ity of capsule 00:00: by mouth 4 [place] 00 (four) Medical times Branch daily. ibuprofen 2020-1 Yes [id number] 800mg Take 1 U nivers 800 mg 0-08 tablet by ity of tablet 00:00: mouth [place] 00 every 6 Medical (six) Branch hours as needed for Pain (scale 4-6). psyllium 2020-1 Yes [id number] 3{packe Take 3 [facility] 3.4 gram 0-08 t} Packets by ity o f packet 00:00: mouth 3 [place] 00 (three) Medical times Branch daily. diphenoxyla 2020-1 Yes [id number] 1{tbl} Take 1 [facility] te-atropine 0-08 tablet by ity of 2.5-0.025 00:00: mouth [place] mg tablet 00 every 8 Medical (eight) Branch hours. loperamide 2020-1 Yes [id number] 4mg Take 2 [facility] n[facility] 2 mg 0-08 capsules [facility] capsule 00:00: [place] mouth 4 [place] (four) [facility] times [facility] daily. ibuprofen 2020-1 Yes [id number] 800mg Take 1 [facility] n[facility] 800 mg 0-08 tablet by ity of tablet 00:00: mouth [place] 00 every 6 Medical (six) Branch hours as needed for Pain (scale 4-6). psyllium 2020-1 Yes [id number] 3{packe Take 3 [facility] 3.4 gram 0-08 t} Packets by ity o f packet 00:00: mouth 3 [place] 00 (three) Medical times Branch daily. diphenoxyla 2020- Yes [id number] 1{tbl} Take 1 [facility] te-atropine 0-08 tablet by ity of 2.5-0.025 00:00: mouth [place] mg tablet 00 every 8 Medical (eight) Branch hours. loperamide 2020- Yes [id number] 4mg Take 2 [facility] n[facility] 2 mg 0-08 capsules [facility] of capsule 00:00: by mouth 4 [place] 00 (four) [facility] times Branch daily. ibuprofen 2020- Yes [id number] 800mg Take 1 [facility] 800 mg 0-08 tablet by ity of tablet 00:00: mouth [place] 00 every 6 Medical (six) Branch hours as needed for Pain (scale 4-6). psyllium 2020-1 Yes [id number] 3{packe Take 3 [facility] 3.4 gram 0-08 t} Packets by ity o f packet 00:00: mouth 3 [place] 00 (three) Medical times Branch daily. diphenoxyla 2020-1 Yes [id number] 1{tbl} Take 1 [facility] te-atropine 0-08 tablet by ity of 2.5-0.025 00:00: mouth [place] mg tablet 00 every 8 Medical (eight) Branch hours. loperamide 2020-1 Yes [id number] 4mg Take 2 [facility] n[facility] 2 mg 0-08 capsules [facility] of capsule 00:00: by mouth 4 [place] 00 (four) [facility] times Branch daily. ibuprofen 2020-1 Yes [id number] 800mg Take 1 [facility] n[facility] 800 mg 0-08 tablet by ity of tablet 00:00: mouth [place] 00 every 6 Medical (six) Branch hours as needed for Pain (scale 4-6). psyllium 2020-1 Yes [id number] 3{packe Take 3 [facility] 3.4 gram 0-08 t} Packets by ity o f packet 00:00: mouth 3 [place] 00 (three) Medical times Branch daily. diphenoxyla 2020-1 Yes [id number] 1{tbl} Take 1 [facility] te-atropine 0-08 tablet by ity of 2.5-0.025 00:00: mouth [place] mg tablet 00 every 8 Medical (eight) Branch hours. loperamide 2020-1 Yes [id number] 4mg Take 2 [facility] n[facility] 2 mg 0-08 capsules [facility] of capsule 00:00: by mouth 4 [place] 00 (four) Medical times Branch daily. ibuprofen 2020-1 Yes [id number] 800mg Take 1 [facility] 800 mg 0-08 tablet by ity of tablet 00:00: mouth [place] 00 every 6 Medical (six) Branch hours as needed for Pain (scale 4-6). psyllium 2020-1 Yes [id number] 3{packe Take 3 [facility] 3.4 gram 0-08 t} Packets by ity o f packet 00:00: mouth 3 (three) Medical times Branch daily. diphenoxyla 2020-1 Yes [id number] 1{tbl} Take 1 [facility] te-atropine 0-08 tablet by ity of 2.5-0.025 00:00: mouth [place] mg tablet 00 every 8 Medical (eight) Branch hours. loperamide 2020-1 Yes [id number] 4mg Take 2 [facility] n[facility] 2 mg 0-08 capsules [facility] capsule 00:00: by mouth [place] (four) [facility] times [facility] daily. ibuprofen 2020-1 Yes [id number] 800mg Take 1 [facility] n[facility] 800 mg 0-08 tablet by ity of tablet 00:00: mouth [place] 00 every 6 Medical (six) Branch hours as needed for Pain (scale 4-6). psyllium 2020-1 Yes [id number] 3{packe Take 3 [facility] 3.4 gram 0-08 t} Packets by ity o f packet 00:00: mouth 3 [place] (three) Medical times Branch daily. diphenoxyla 2020-1 Yes [id number] 1{tbl} Take 1 [facility] te-atropine 0-08 tablet by ity of 2.5-0.025 00:00: mouth [place] mg tablet 00 every 8 Medical (eight) Branch hours. loperamide 2020-1 Yes [id number] 4mg Take 2 [facility] n[facility] 2 mg 0-08 capsules [facility] of capsule 00:00: by mouth 4 [place] 00 (four) Medical times Branch daily. ibuprofen 2020-1 Yes [id number] 800mg Take 1 [facility] n[facility] 800 mg 0-08 tablet by ity of tablet 00:00: mouth [place] 00 every 6 Medical (six) Branch hours as needed for Pain (scale 4-6). psyllium 2020-1 Yes [id number] 3{packe Take 3 [facility] 3.4 gram 0-08 t} Packets by ity o f packet 00:00: mouth 3 [place] 00 (three) Medical times Branch daily. diphenoxyla 2020- Yes [id number] 1{tbl} Take 1 [facility] te-atropine 0-08 tablet by ity of 2.5-0.025 00:00: mouth [place] mg tablet 00 every 8 Medical (eight) Branch hours. loperamide 2020-1 Yes [id number] 4mg Take 2 [facility] n[facility] 2 mg 0-08 capsules [facility] of capsule 00:00: by mouth 4 [place] 00 (four) Medical times Branch daily. ibuprofen 2020- Yes [id number] 800mg Take 1 [facility] 800 mg 0-08 tablet by ity of tablet 00:00: mouth [place] 00 every 6 Medical (six) Branch hours as needed for Pain (scale 4-6). psyllium 2020-1 Yes [id number] 3{packe Take 3 [facility] 3.4 gram 0-08 t} Packets by ity o f packet 00:00: mouth 3 [place] 00 (three) Medical times Branch daily. diphenoxyla 2020-1 Yes [id number] 1{tbl} Take 1 [facility] te-atropine 0-08 tablet by ity of 2.5-0.025 00:00: mouth [place] mg tablet 00 every 8 Medical (eight) Branch hours. loperamide 2020-1 Yes [id number] 4mg Take 2 [facility] n[facility] 2 mg 0-08 capsules [facility] of capsule 00:00: by mouth 4 [place] 00 (four) Medical times Branch daily. ibuprofen 2020-1 Yes [id number] 800mg Take 1 [facility] 800 mg 0-08 tablet by ity of tablet 00:00: mouth [place] 00 every 6 Medical (six) Branch hours as needed for Pain (scale 4-6). psyllium 2020-1 Yes [id number] 3{packe Take 3 [facility] 3.4 gram 0-08 t} Packets by ity o f packet 00:00: mouth 3 [place] 00 (three) Medical times Branch daily. diphenoxyla 2020-1 Yes [id number] 1{tbl} Take 1 [facility] te-atropine 0-08 tablet by ity of 2.5-0.025 00:00: mouth [place] mg tablet 00 every 8 Medical (eight) Branch hours. loperamide 2020-1 Yes [id number] 4mg Take 2 [facility] n[facility] 2 mg 0-08 capsules [facility] of capsule 00:00: by mouth 4 [place] 00 (four) Medical times Branch daily. ibuprofen 2020- Yes [id number] 800mg Take 1 [facility] 800 mg 0-08 tablet by ity of tablet 00:00: mouth [place] 00 every 6 Medical (six) Branch hours as needed for Pain (scale 4-6). psyllium 2020-1 Yes [id number] 3{packe Take 3 [facility] 3.4 gram 0-08 t} Packets by ity o f packet 00:00: mouth 3 [place] 00 (three) Medical times Branch daily. diphenoxyla 2020-1 Yes [id number] 1{tbl} Take 1 [facility] te-atropine 0-08 tablet by ity of 2.5-0.025 00:00: mouth [place] mg tablet 00 every 8 Medical (eight) Branch hours. loperamide 2020-1 Yes [id number] 4mg Take 2 [facility] n[facility] 2 mg 0-08 capsules [facility] of capsule 00:00: by mouth 4 [place] 00 (four) Medical times Branch daily. ibuprofen 2020- Yes [id number] 800mg Take 1 [facility] n[facility] 800 mg 0-08 tablet by ity of tablet 00:00: mouth [place] 00 every 6 Medical (six) Branch hours as needed for Pain (scale 4-6). psyllium 2020-1 Yes [id number] 3{packe Take 3 [facility] 3.4 gram 0-08 t} Packets by ity o f packet 00:00: mouth 3 [place] 00 (three) Medical times Branch daily. diphenoxyla 2020-1 Yes [id number] 1{tbl} Take 1 [facility] te-atropine 0-08 tablet by ity of 2.5-0.025 00:00: mouth [place] mg tablet 00 every 8 Medical (eight) Branch hours. loperamide 2020-1 Yes [id number] 4mg Take 2 [facility] n[facility] 2 mg 0-08 capsules [facility] of capsule 00:00: by mouth 4 [place] 00 (four) Medical times Branch daily. ibuprofen 2019-08 Yes [id number] 800mg Take 1 [facility] n[facility] 800 mg 0-08 tablet by ity of tablet 00:00: mouth [place] 00 every 6 Medical (six) Branch hours as needed for Pain (scale 4-6). acetaminoph 2019-08- No [id number] 650mg Take 2 [facility] en 325 mg 0-08 10-09 tablets by ity of tablet 00:00: 04:59 mouth [place] 00 :00 every 6 Medical (six) Branch hours as needed for Pain (scale 1-3). acetaminoph 2019-08- No [id number] 650mg Take 2 [facility] en 325 mg 0-08 10-09 tablets by ity of tablet 00:00: 04:59 mouth [place] 00 :00 every 6 Medical (six) Branch hours as needed for Pain (scale 1-3). acetaminoph 2019-08 No [id number] 650mg Take 2 [facility] en 325 mg 0-08 10-09 tablets by ity of tablet 00:00: 04:59 mouth [place] 00 :00 every 6 Medical (six) Branch hours as needed for Pain (scale 1-3). acetaminoph 2019-08 No [id number] 650mg Take 2 [facility] en 325 mg 0-08 10-09 tablets by ity of tablet 00:00: 04:59 mouth [place] 00 :00 every 6 Medical (six) Branch hours as needed for Pain (scale 1-3). acetaminoph 2019-08- No [id number] 650mg Take 2 [facility] en 325 mg 0-08 10-09 tablets by ity of tablet 00:00: 04:59 mouth [place] 00 :00 every 6 Medical (six) Branch hours as needed for Pain (scale 1-3). acetaminoph 2019-08- No [id number] 650mg Take 2 [facility] en 325 mg 0-08 10-09 tablets by ity of tablet 00:00: 04:59 mouth [place] 00 :00 every 6 Medical (six) Branch hours as needed for Pain (scale 1-3). acetaminoph 2019-08 No [id number] 650mg Take 2 [facility] en 325 mg 0-08 10-09 tablets by ity of tablet 00:00: 04:59 mouth [place] 00 :00 every 6 Medical (six) Branch hours as needed for Pain (scale 1-3). acetaminoph 2019-08 No [id number] 650mg Take 2 [facility] en 325 mg 0-08 10-09 tablets by ity of tablet 00:00: 04:59 mouth [place] 00 :00 every 6 Medical (six) Branch hours as needed for Pain (scale 1-3). acetaminoph 2019-08 No [id number] 650mg Take 2 [facility] en 325 mg 0-08 10-09 tablets by ity of tablet 00:00: 04:59 mouth [place] 00 :00 every 6 Medical (six) Branch hours as needed for Pain (scale 1-3). acetaminoph 2019-08 No [id number] 650mg Take 2 [facility] en 325 mg 0-08 10-09 tablets by ity of tablet 00:00: 04:59 mouth [place] 00 :00 every 6 Medical (six) Branch hours as needed for Pain (scale 1-3). acetaminoph 2019-08 No [id number] 650mg Take 2 [facility] en 325 mg 0-08 10-09 tablets by ity of tablet 00:00: 04:59 mouth [place] 00 :00 every 6 Medical (six) Branch hours as needed for Pain (scale 1-3). acetaminoph 2019-08 No [id number] 650mg Take 2 [facility] en 325 mg 0-08 10-09 tablets by ity of tablet 00:00: 04:59 mouth [place] 00 :00 every 6 Medical (six) Branch hours as needed for Pain (scale 1-3). acetaminoph 2019-08 No [id number] 650mg Take 2 [facility] en 325 mg 0-08 10-09 tablets by ity of tablet 00:00: 04:59 mouth [place] 00 :00 every 6 Medical (six) Branch hours as needed for Pain (scale 1-3). acetaminoph 2019-08 No [id number] 650mg Take 2 [facility] en 325 mg 0-08 10-09 tablets by ity of tablet 00:00: 04:59 mouth [place] 00 :00 every 6 Medical (six) Branch hours as needed for Pain (scale 1-3). psyllium 2019-08 No [id number] 3{packe Take 3 [facility] 3.4 gram 0-08 09-16 t} Packets by ity of packet 00:00: 00:00 mouth 3 [place] 00 :00 (three) Medical times Branch daily. diphenoxyla 2019-08 [id number] 1{tbl} Take 1 [facility] te-atropine 0-08 09-16 tablet by it y of 2.5-0.025 00:00: 00:00 mouth [place] mg tablet 00 :00 every 8 Medical (eight) Branch hours. loperamide 2019-08 [id number] 4mg Take 2 [facility] 2 mg 0-08 09-16 capsules ity of capsule 00:00: 00:00 by mouth 4 [place] 00 :00 (four) Medical times Branch daily. ibuprofen 2019-08 [id number] 800mg Take 1 [facility] 800 mg 0-08 09-16 tablet by ity of tablet 00:00: 00:00 mouth [place] 00 :00 every 6 Medical (six) Branch hours as needed for Pain (scale 4-6). acetaminoph 2019-08 [id number] 650mg Take 2 [facility] en 325 mg 0-08 09-16 tablets by ity of tablet 00:00: 00:00 mouth [place] 00 :00 every 6 Medical (six) Branch hours as needed for Pain (scale 1-3). psyllium 2019-08 [id number] 3{packe Take 3 [facility] 3.4 gram 0-08 09-16 t} Packets by ity of packet 00:00: 00:00 mouth 3 [place] 00 :00 (three) Medical times Branch daily. diphenoxyla 2019-08 [id number] 1{tbl} Take 1 [facility] te-atropine 0-08 09-16 tablet by it y of 2.5-0.025 00:00: 00:00 mouth [place] mg tablet 00 :00 every 8 Medical (eight) Branch hours. loperamide 2019-08 [id number] 4mg Take 2 [facility] 2 mg 0-08 09-16 capsules ity of capsule 00:00: 00:00 by mouth 4 [place] 00 :00 (four) Medical times Branch daily. ibuprofen 2019-08 [id number] 800mg Take 1 [facility] 800 mg 0-08 09-16 tablet by ity of tablet 00:00: 00:00 mouth [place] 00 :00 every 6 Medical (six) Branch hours as needed for Pain (scale 4-6). acetaminoph 2019-08- No [id number] 650mg Take 2 [facility] en 325 mg 0-08 09-16 tablets by ity of tablet 00:00: 00:00 mouth [place] 00 :00 every 6 Medical (six) Branch hours as needed for Pain (scale 1-3). acetaminoph 2019-08- No [id number] 650mg Take 2 [facility] en 325 mg 0-08 10-08 tablets by ity of tablet 00:00: 00:00 mouth [place] 00 :00 every 6 Medical (six) Branch hours as needed for Pain (scale 1-3). ibuprofen 2019-08- No [id number] 800mg Take 1 [facility] 800 mg 0-08 10-08 tablet by ity of tablet 00:00: 00:00 mouth [place] 00 :00 every 6 Medical (six) Branch hours as needed for Pain (scale 4-6). loperamide 2019-08- No [id number] 4mg Take 2 [facility] 2 mg 0-08 10-08 capsules ity of capsule 00:00: 00:00 by mouth 4 [place] 00 :00 (four) Medical times Branch daily. diphenoxyla 2019-08- No [id number] 1{tbl} Take 1 [facility] te-atropine 0-08 10-08 tablet by it y of 2.5-0.025 00:00: 00:00 mouth [place] mg tablet 00 :00 every 8 Medical (eight) Branch hours. psyllium 2019-08- No [id number] 3{packe Take 3 [facility] 3.4 gram 0-08 [...] g, IV Univ ers sulfate in 0-05 -05 Piggyback, it y of water 2 13:30: [...] First dose [place] SINGLES) 00 :14 on [place] [facility] 3.4 gram 05/27/20 at [facility] packet 1 1999, Packet Until Discontinu ed, Routine loperamide 2019-08 2020- No 4mg 4 mg, Unive rs (IMODIUM 0-04 10-05 Oral, TID, ity of A-D) 19:00: 12:56 First dose [place] capsule 4 00 :31 (after Medical mg last Branch modificati on) on 10/4/20 at 1400, Until Discontinu ed, Routine magnesium 2019-08- No 2g 2 g, IV Univ ers sulfate in 0-04 -04 Piggyback, it y of water 2 13:00: 12:28 ONCE, 1 [place] gram/50 mL 00 :00 dose, Sun Medi mariusz (4 %) 05/27/20 at [place] infusion 2 0800, g Routine lactated 2019- [...] Medi mariusz (8 %) IV 05/24/20 at [facility] h Piggyback 4 1715, g Routine iohexoL 2019- 2020- No 50mL 50 mL, Univers (OMNIPAQUE [...] 16:01 Starting [place] injection 03 :03 [facility] Medical 05/24/20 at Branch 1101, Until [...] dose, Thu Medica l mL) 05/23/20 at [place] injection 1015, 100 mL Routine docusate 2019- No 100mg 100 mg, Univ ers (COLACE) 05-23 Oral, ity of capsule 100 14:00: 17:31 DAILY, [place] mg 00 :24 First dose Medical on Thu Branch 05/23/20 at 0900, Until Discontinu ed, Routine levoFLOXaci 2019- No 750mg 750 mg, U nivers n 05-23 Oral, Q24H ity of (LEVAQUIN) 04:30: 18:00 ABX, First [place] tablet 750 00 :16 dose on Medica l mg Thu05/22/20 at 2330, Until Discontinu ed, JOÃO
Re ason for Anti-Infec tive: Documented Infection< br>Documen dain Infection Site: Abdominal< br>Duratio n of Therapy: 7 days ondansetron Yes 4mg 4 mg, Slow Univers (ZOFRAN 05-23 IV Push, ity of (PF)) 03:15: Administer [place] injection 4 50 over 15 Medic al mg Minutes, Branch Q8HPRN, Starting [facility] 05/22/20 at 2215, Until Discontinu ed, [...] 05-23 Oral, ity of (TYLENOL) 03:13: Q6HPRN, [place] tablet 650 36 Starting Medic al mg [facility] 05/22/20 at 2213, Until Discontinu ed, Routine, Pain (scale 1-3) morpHINE 2020-0 2020- No 4mg 4 mg, Slow Un piyush injection 4 05-22 IV Push, ity of mg 03:30: 03:13 ONCE, 1 [place] 00 :00 dose, [facility] 05/21/20 at Branch 2230, STAT piperacilli 2020-0 2020- No 3.375g 3.375 g, Univers n-tazobacta 05-20 IV ity of m (ZOSYN) 10:15: 22:14 [place]back, [place] 3.375 g in 00 :00 ONCE, 1 Medica l NaCl 0.9% dose, [facility] h (NS) 100 mL 05/20/20 at MINI-BAG [...] ity of mg 03:45: 03:36 ONCE, 1 [place] 00 :00 dose, Sat Medical 05/19/20 at Branch 2245, STAT NaCl 0.9% 2019-0 2020- No 1000mL at 999 Uni vers (NS) bolus 05-20 mL/hr, ity of infusion 03:45: 11:13 1,000 mL, [place] [facility] dose, 05/19/20 at 2245, STAT ibuprofen 2020-0 Yes [id number] 800mg Take 1 U nivers 800 mg 9-18 tablet by ity of tablet 00:00: mouth [place] 00 every 6 Medical (six) Branch hours as needed for Pain (scale 4-6). levoFLOXaci 2020-0 Yes [id number] 750mg Take 1 [facility] n 750 mg 9-18 tablet by ity of tablet 00:00: mouth [place] 00 every 24 Medical (twenty-fo Branch ur) hours. loperamide 2020-0 Yes [id number] 2mg Take 1 U nivers 2 mg 9-18 capsule by ity of capsule 00:00: mouth [place] 00 daily. Medical Branch ibuprofen 2020-0 Yes [id number] 800mg Take 1 U nivers 800 mg 9-18 tablet by ity of tablet 00:00: mouth [place] 00 every 6 Medical (six) Branch hours as needed for Pain (scale 4-6). levoFLOXaci 2020-0 Yes [id number] 750mg Take 1 [facility] n 750 mg 9-18 tablet by ity of tablet 00:00: mouth [place] 00 every 24 Medical (twenty-fo Branch ur) hours. loperamide 2020-0 Yes [id number] 2mg Take 1 U nivers 2 mg 9-18 capsule by ity of capsule 00:00: mouth [place] 00 daily. Medical Branch ibuprofen 2020-0 Yes [id number] 800mg Take 1 U nivers 800 mg 9-18 tablet by ity of tablet 00:00: mouth [place] 00 every 6 Medical (six) Branch hours as needed for Pain (scale 4-6). levoFLOXaci 2020-0 Yes [id number] 750mg Take 1 [facility] n 750 mg 9-18 tablet by ity of tablet 00:00: mouth [place] 00 every 24 Medical (twenty-fo Branch ur) hours. loperamide 2020-0 Yes [id number] 2mg Take 1 U nivers 2 mg 9-18 capsule by ity of capsule 00:00: mouth [place] 00 daily. Medical Branch ibuprofen 2020-0 Yes [id number] 800mg Take 1 U nivers 800 mg 9-18 tablet by ity of tablet 00:00: mouth [place] 00 every 6 Medical (six) Branch hours as needed for Pain (scale 4-6). levoFLOXaci 2020-0 Yes [id number] 750mg Take 1 [facility] n 750 mg 9-18 tablet by ity of tablet 00:00: mouth [place] 00 every 24 Medical (twenty-fo Branch ur) hours. loperamide 2020-0 Yes [id number] 2mg Take 1 U nivers 2 mg 9-18 capsule by ity of capsule 00:00: mouth [place] 00 daily. Medical Branch ibuprofen 2020-0 Yes [id number] 800mg Take 1 U nivers 800 mg 9-18 tablet by ity of tablet 00:00: mouth [place] 00 every 6 Medical (six) Branch hours as needed for Pain (scale 4-6). levoFLOXaci 2020-0 Yes [id number] 750mg Take 1 [facility] n 750 mg 9-18 tablet by ity of tablet 00:00: mouth [place] 00 every 24 Medical (twenty-fo Branch ur) hours. loperamide 2020-0 Yes [id number] 2mg Take 1 U nivers 2 mg 9-18 capsule by ity of capsule 00:00: mouth [place] 00 daily. Medical Branch ibuprofen 2020-0 Yes [id number] 800mg Take 1 U nivers 800 mg 9-18 tablet by ity of tablet 00:00: mouth [place] 00 every 6 Medical (six) Branch hours as needed for Pain (scale 4-6). levoFLOXaci 2020-0 Yes [id number] 750mg Take 1 [facility] n 750 mg 9-18 tablet by ity of tablet 00:00: mouth [place] 00 every 24 Medical (twenty-fo Branch ur) hours. loperamide 2020-0 Yes [id number] 2mg Take 1 U nivers 2 mg 9-18 capsule by ity of capsule 00:00: mouth [place] 00 daily. Medical Branch ibuprofen 2020-0 Yes [id number] 800mg Take 1 U nivers 800 mg 9-18 tablet by ity of tablet 00:00: mouth [place] 00 every 6 Medical (six) Branch hours as needed for Pain (scale 4-6). levoFLOXaci 2020-0 Yes [id number] 750mg Take 1 [facility] n 750 mg 9-18 tablet by ity of tablet 00:00: mouth [place] 00 every 24 Medical (twenty-fo Branch ur) hours. loperamide 2020-0 Yes [id number] 2mg Take 1 U nivers 2 mg 9-18 capsule by ity of capsule 00:00: mouth [place] 00 daily. Medical Branch ibuprofen 2020-0 Yes [id number] 800mg Take 1 U nivers 800 mg 9-18 tablet by ity of tablet 00:00: mouth [place] 00 every 6 Medical (six) Branch hours as needed for Pain (scale 4-6). levoFLOXaci 2020-0 Yes [id number] 750mg Take 1 [facility] n 750 mg 9-18 tablet by ity of tablet 00:00: mouth [place] 00 every 24 Medical (twenty-fo Branch ur) hours. loperamide 2020-0 Yes [id number] 2mg Take 1 U nivers 2 mg 9-18 capsule by ity of capsule 00:00: mouth [place] 00 daily. Medical Branch ibuprofen 2020-0 Yes [id number] 800mg Take 1 U nivers 800 mg 9-18 tablet by ity of tablet 00:00: mouth [place] 00 every 6 Medical (six) Branch hours as needed for Pain (scale 4-6). levoFLOXaci 2020-0 Yes [id number] 750mg Take 1 [facility] n 750 mg 9-18 tablet by ity of tablet 00:00: mouth [place] 00 every 24 Medical (twenty-fo Branch ur) hours. loperamide 2020-0 Yes [id number] 2mg Take 1 U nivers 2 mg 9-18 capsule by ity of capsule 00:00: mouth [place] 00 daily. Medical Branch ibuprofen 2020-0 Yes [id number] 800mg Take 1 U nivers 800 mg 9-18 tablet by ity of tablet 00:00: mouth [place] 00 every 6 Medical (six) Branch hours as needed for Pain (scale 4-6). levoFLOXaci 2020-0 Yes [id number] 750mg Take 1 [facility] n 750 mg 9-18 tablet by ity of tablet 00:00: mouth [place] 00 every 24 Medical (twenty-fo Branch ur) hours. loperamide 2020-0 Yes [id number] 2mg Take 1 U nivers 2 mg 9-18 capsule by ity of capsule 00:00: mouth [place] 00 daily. Medical Branch ibuprofen 2020-0 Yes [id number] 800mg Take 1 U nivers 800 mg 9-18 tablet by ity of tablet 00:00: mouth [place] 00 every 6 Medical (six) Branch hours as needed for Pain (scale 4-6). levoFLOXaci 2020-0 Yes [id number] 750mg Take 1 [facility] n 750 mg 9-18 tablet by ity of tablet 00:00: mouth [place] 00 every 24 Medical (twenty-fo Branch ur) hours. loperamide 2020-0 Yes [id number] 2mg Take 1 U nivers 2 mg 9-18 capsule by ity of capsule 00:00: mouth [place] 00 daily. Medical Branch ibuprofen 2020-0 Yes [id number] 800mg Take 1 U nivers 800 mg 9-18 tablet by ity of tablet 00:00: mouth [place] 00 every 6 Medical (six) Branch hours as needed for Pain (scale 4-6). levoFLOXaci 2020-0 Yes [id number] 750mg Take 1 [facility] n 750 mg 9-18 tablet by ity of tablet 00:00: mouth [place] 00 every 24 Medical (twenty-fo Branch ur) hours. loperamide 2020-0 Yes [id number] 2mg Take 1 U nivers 2 mg 9-18 capsule by ity of capsule 00:00: mouth [place] 00 daily. Medical Branch ibuprofen 2020-0 Yes [id number] 800mg Take 1 U nivers 800 mg 9-18 tablet by ity of tablet 00:00: mouth [place] 00 every 6 Medical (six) Branch hours as needed for Pain (scale 4-6). levoFLOXaci 2020-0 Yes [id number] 750mg Take 1 [facility] n 750 mg 9-18 tablet by ity of tablet 00:00: mouth [place] 00 every 24 Medical (twenty-fo Branch ur) hours. loperamide 2019- Yes [id number] 2mg Take 1 U nivers 2 mg 9-18 capsule by ity of capsule 00:00: mouth [place] 00 daily. Medical Branch acetaminoph [id number] 650mg Take 2 Univers en 325 mg 9-18 09-19 tablets by ity of tablet 00:00: 04:59 mouth [place] 00 :00 every 6 Medical (six) Branch hours as needed for Pain (scale 1-3). acetaminoph No [id number] 650mg Take 2 [facility] en 325 mg 9-18 09-19 tablets by ity of tablet 00:00: 04:59 mouth [place] 00 :00 every 6 Medical (six) Branch hours as needed for Pain (scale 1-3). acetaminoph No [id number] 650mg Take 2 [facility] en 325 mg 9-18 09-19 tablets by ity of tablet 00:00: 04:59 mouth [place] 00 :00 every 6 Medical (six) Branch hours as needed for Pain (scale 1-3). acetaminoph [id number] 650mg Take 2 [facility] en 325 mg 9-18 09-19 tablets by ity of tablet 00:00: 04:59 mouth [place] 00 :00 every 6 Medical (six) Branch hours as needed for Pain (scale 1-3). acetaminoph [id number] 650mg Take 2 [facility] en 325 mg 9-18 09-19 tablets by ity of tablet 00:00: 04:59 mouth [place] 00 :00 every 6 Medical (six) Branch hours as needed for Pain (scale 1-3). acetaminoph No [id number] 650mg Take 2 [facility] en 325 mg 9-18 09-19 tablets by ity of tablet 00:00: 04:59 mouth [place] 00 :00 every 6 Medical (six) Branch hours as needed for Pain (scale 1-3). acetaminoph No [id number] 650mg Take 2 [facility] en 325 mg 9-18 09-19 tablets by ity of tablet 00:00: 04:59 mouth [place] 00 :00 every 6 Medical (six) Branch hours as needed for Pain (scale 1-3). acetaminoph No [id number] 650mg Take 2 [facility] en 325 mg 9-18 09-19 tablets by ity of tablet 00:00: 04:59 mouth [place] 00 :00 every 6 Medical (six) Branch hours as needed for Pain (scale 1-3). acetaminoph [id number] 650mg Take 2 [facility] en 325 mg 9-18 09-19 tablets by ity of tablet 00:00: 04:59 mouth [place] 00 :00 every 6 Medical (six) Branch hours as needed for Pain (scale 1-3). acetaminoph [id number] 650mg Take 2 [facility] en 325 mg 9-18 09-19 tablets by ity of tablet 00:00: 04:59 mouth [place] 00 :00 every 6 Medical (six) Branch hours as needed for Pain (scale 1-3). acetaminoph [id number] 650mg Take 2 [facility] en 325 mg 9-18 09-19 tablets by ity of tablet 00:00: 04:59 mouth [place] 00 :00 every 6 Medical (six) Branch hours as needed for Pain (scale 1-3). acetaminoph No [id number] 650mg Take 2 [facility] en 325 mg 9-18 09-19 tablets by ity of tablet 00:00: 04:59 mouth [place] 00 :00 every 6 Medical (six) Branch hours as needed for Pain (scale 1-3). acetaminoph [id number] 650mg Take 2 [facility] en 325 mg 9-18 09-19 tablets by ity of tablet 00:00: 04:59 mouth [place] 00 :00 every 6 Medical (six) Branch hours as needed for Pain (scale 1-3). acetaminoph [id number] 650mg Take 2 Univers en 325 mg 9-18 10-08 tablets by ity of tablet 00:00: 00:00 mouth [place] 00 :00 every 6 Medical (six) Branch hours as needed for Pain (scale 1-3). ibuprofen [id number] 800mg Take 1 Univers 800 mg 9-18 10-08 tablet by ity of tablet 00:00: 00:00 mouth [place] 00 :00 every 6 Medical (six) Branch hours as needed for Pain (scale 4-6). levoFLOXaci [id number] 750mg Take 1 Univers n 750 mg 9-18 10-08 tablet by ity o f tablet 00:00: 00:00 mouth [place] 00 :00 every 24 Medical (twenty-fo Branch ur) hours. loperamide 2019- No [id number] 2mg Take 1 Univers 2 mg 9-18 [...] 7 days. Indication s: acute pain HYDROcodone 2019-0 2020- No [id number] 1{tbl} Take 1 U nivers -acetaminop 05-11 tablet by it y of hen 5-325 00:00: 04:59 mouth [place] mg tablet 00 :00 every 6 Medical (six) Branch hours as needed for Pain (scale 4-6) for up to 7 days. Indication s: acute pain levoFLOXaci 2019-0 Yes 750mg 750 mg, Un piyush n 05-10 Oral, Q24H ity of (LEVAQUIN) 00:00: ABX, First [place] tablet 750 00 dose on Medica l mg Thu Branch 05/09/20 at 1900, Until Discontinu ed, JOÃO
Re ason for Anti-Infec tive: Documented Infection< br>Documen dain Infection Site: Abdominal< br>Duratio n of Therapy: 14 days metroNIDAZO 2019- 2020- No 500mg 500 mg, U [...] Branch 2000, Until Discontinu ed, Routine lactated 2019-0 2020- No 1000mL at 999 Univ ers ringers IV 05-07-14 mL/hr, ity of infusion 22:15: 22:21 1,000 mL, [place] 1,000 mL 00 :00 Intravenou Medic al s, ONCE, 1 Branch dose, [facility] 05/07/20 at 1715, Routine lactated 2020-0 2020- No 1000mL at 999 [facility] ers ringers IV 05-07 mL/hr, ity of infusion 13:15: 14:09 1,000 mL, [place] 1,000 mL 00 :00 Intravenou Medic al s, ONCE, 1 [place] dose, [facility] 05/07/20 at 0815, Routine HYDROcodone 2020-0 Yes 1{tbl} 1 tablet, Univers -acetaminop 05-07 Oral, ity of hen (NORCO 13:00: Q6HPRN, [place] 5) 5-325 mg 00 Starting [facility] tablet 1 Thu [place] tablet 05/07/20 at 0800, Until Discontinu ed, Routine, Pain (scale 4-6) magnesium 2020-0 2020- No 2g 2 g, IV [facility] ers sulfate in 05-07 Piggyback, it y of water 2 13:00: 15:10 ONCE, 1 [place] gram/50 mL 00 :00 dose, [facility] (4 %) 05/07/20 at [place] infusion 2 0800, g Routine ibuprofen 2020-0 Yes 800mg 800 mg, [facility] ers (IBU) 05-07 Oral, ity of tablet 800 12:45: Q6HPRN, [place] mg 22 Starting [facility] 05/07/20 at 0745, Until Discontinu ed, Routine, Pain (scale 4-6) FENTanyl PF 2020-0 2020- No Slow IV Un piyush (SUBLIMAZE 05-05 Push, PRN, it y of (PF)) 18:53: 20:05 Starting [place] injection 39 :03 [facility] 05/05/20 at Branch 1353, Until Discontinu ed, Routine lidocaine 2020-0 2020- No PRN, Univers 1% (PF) 05-05 Starting ity of (XYLOCAINE) 18:26: 18:26 Sat [place] injection 34 :34 05/05/20 at [facility] 1326, Branch Until Discontinu ed, Routine NaCl 0.9% 2020-0 2020- No CONTINUOUS U nivers (NS) bolus 05-05 PRN, ity of infusion 18:15: 18:15 Starting [place] 06 :06 [facility] 05/05/20 at Branch 1315, Until Discontinu ed, [...] First dose Medica l I.V.) RTU on [facility] IV infusion 05/05/20 at 500 mg 0230, [...] :33 over 90 Medica l mL Minutes, [place] Piggyback Q24H ABX, 750 mg First dose on 05/05/20 at 0230, Until Discontinu ed, JOÃO
Re ason for Anti-Infec tive: Documented Infection< br>Documen dain Infection Site: Abdominal< br>Duratio n of Therapy: 7 days morpHINE 2019- No 2mg 2 mg, Slow Un piyush injection 2 05-05 IV Push, ity of mg 06:15: 06:14 Q4HPRN, [place] 31 :31 Starting Medical [facility] Branch 05/05/20 at 0115, Until 05/07/20 at [...]
Fa culty member approving Restricted medication : AMAURYSINDIJOEL traMADoL 2020-0 Yes [id number] 50mg Take 1 [...] 7-10). Indication s: acute pain traMADoL 2019-0 2020- No [id number] 50mg Take 1 Univer s (ULTRAM) 50 9-10 09-18 tablet by it y of mg tablet 00:00: 00:00 mouth [place] 00 :00 every 6 Medical (six) Branch hours as needed for Pain (scale 7-10). Indication s: acute pain ibuprofen 2020-0 Yes [id number] 400mg Take 2 Univers 200 mg 9-08 tablets by ity of tablet 00:00: mouth [place] 00 every 6 Medical (six) Branch hours as needed for Pain (scale 1-3). ibuprofen 2020-0 Yes [id number] 400mg Take 2 [facility] 200 mg 9-08 tablets by ity of tablet 00:00: mouth [place] 00 every 6 Medical (six) Branch hours as needed for Pain (scale 1-3). ibuprofen 2020-0 Yes [id number] 400mg Take 2 Univers 200 mg 9-08 tablets by ity of tablet 00:00: mouth [place] 00 every 6 Medical (six) Branch hours as needed for Pain (scale 1-3). ibuprofen 2020-0 Yes [id number] 400mg Take 2 [facility] 200 mg 9-08 tablets by ity of tablet 00:00: mouth [place] 00 every 6 Medical (six) Branch hours as needed for Pain (scale 1-3). ibuprofen 2020-0 Yes [id number] 400mg Take 2 Univers 200 mg 9-08 tablets by ity of tablet 00:00: mouth [place] 00 every 6 Medical (six) Branch hours as needed for Pain (scale 1-3). ibuprofen 2020-0 Yes [id number] 400mg Take 2 Univers 200 mg 9-08 tablets by ity of tablet 00:00: mouth [place] 00 every 6 Medical (six) Branch hours as needed for Pain (scale 1-3). ibuprofen 2020-0 Yes [id number] 400mg Take 2 Univers 200 mg 9-08 tablets by ity of tablet 00:00: mouth [place] 00 every 6 Medical (six) Branch hours as needed for Pain (scale 1-3). acetaminoph 2019-2020- No [id number] 650mg Take 2 Univers en 9-08 09-09 tablets by ity of (TYLENOL) 00:00: 04:59 mouth [place] 325 mg 00 :00 every 6 Medical tablet (six) Branch hours as needed for Pain (scale 4-6). acetaminoph 2020- No [id number] 650mg Take 2 Univers en 05-01 tablets by ity of (TYLENOL) 00:00: 04:59 mouth [place] 325 mg 00 :00 every 6 Medical tablet (six) Branch hours as needed for Pain (scale 4-6). acetaminoph 2020- No [id number] 650mg Take 2 Univers en 05-01 tablets by ity of (TYLENOL) 00:00: 04:59 mouth [place] 325 mg 00 :00 every 6 Medical tablet (six) Branch hours as needed for Pain (scale 4-6). acetaminoph 2020- No [id number] 650mg Take 2 Univers en 05-01 tablets by ity of (TYLENOL) 00:00: 04:59 mouth [place] 325 mg 00 :00 every 6 Medical tablet (six) Branch hours as needed for Pain (scale 4-6). acetaminoph 2020- No [id number] 650mg Take 2 Univers en 05-01 tablets by ity of (TYLENOL) 00:00: 04:59 mouth [place] 325 mg 00 :00 every 6 Medical tablet (six) Branch hours as needed for Pain (scale 4-6). acetaminoph 2020- No [id number] 650mg Take 2 Univers en 05-01 tablets by ity of (TYLENOL) 00:00: 04:59 mouth [place] 325 mg 00 :00 every 6 Medical tablet (six) Branch hours as needed for Pain (scale 4-6). acetaminoph 2020- No [id number] 650mg Take 2 Univers en 05-01 tablets by ity of (TYLENOL) 00:00: 04:59 mouth [place] 325 mg 00 :00 every 6 Medical tablet (six) Branch hours as needed for Pain (scale 4-6). ciprofloxac 2019-2019- No [id number] 750mg Take 1 Univers in HCl 750 05-01 tablet by ity of mg tablet 00:00: 04:59 mouth [place] 00 :00 every 12 Medical (twelve) Branch hours for 14 days. amoxicillin 2019-2019- No [id number] 1{tbl} Take 1 Univers -clavulanat 05-01 tablet by it y of e 00:00: 04:59 mouth 2 [place] (AUGMENTIN) 00 :00 (two) Medical 875-125 mg times Branch per tablet daily for 14 days. ciprofloxac 2020-0 2019- No [id number] 750mg Take 1 Univers in HCl 750 05-01 tablet by ity of mg tablet 00:00: 04:59 mouth [place] 00 :00 every 12 Medical (twelve) Branch hours for 14 days. amoxicillin 2019-2019- No [id number] 1{tbl} Take 1 Univers -clavulanat 05-01 tablet by it y of e 00:00: 04:59 mouth 2 [place] (AUGMENTIN) 00 :00 (two) Medical 875-125 mg times Branch per tablet daily for 14 days. ciprofloxac 2019-2019- No [id number] 750mg Take 1 Univers in HCl 750 05-01 tablet by ity of mg tablet 00:00: 04:59 mouth [place] 00 :00 every 12 Medical (twelve) Branch hours for 14 days. amoxicillin 2019-2019- No [id number] 1{tbl} Take 1 Univers -clavulanat 05-01 tablet by it y of e 00:00: 04:59 mouth 2 [place] (AUGMENTIN) 00 :00 (two) Medical 875-125 mg times Branch per tablet daily for 14 days. ciprofloxac 2019-0 2019- No [id number] 750mg Take 1 Univers in HCl 750 05-01 tablet by ity of mg tablet 00:00: 04:59 mouth [place] 00 :00 every 12 Medical (twelve) Branch hours for 14 days. amoxicillin 2019-2019- No [id number] 1{tbl} Take 1 Univers -clavulanat 05-01 tablet by it y of e 00:00: 04:59 mouth 2 [place] (AUGMENTIN) 00 :00 (two) Medical 875-125 mg times Branch per tablet daily for 14 days. ciprofloxac 2020-2019- No [id number] 750mg Take 1 Univers in HCl 750 05-01 tablet by ity of mg tablet 00:00: 04:59 mouth [place] 00 :00 every 12 Medical (twelve) Branch hours for 14 days. amoxicillin 2019-2019- No [id number] 1{tbl} Take 1 Univers -clavulanat 05-01 tablet by it y of e 00:00: 04:59 mouth 2 [place] (AUGMENTIN) 00 :00 (two) Medical 875-125 mg times Branch per tablet daily for 14 days. ciprofloxac 2020-0 2020- No [id number] 750mg Take 1 Univers in HCl 750 05-01 tablet by ity of mg tablet 00:00: 04:59 mouth [place] 00 :00 every 12 Medical (twelve) Branch hours for 14 days. amoxicillin 2019-0 2020- No [id number] 1{tbl} Take 1 Univers -clavulanat 05-01 tablet by it y of e 00:00: 04:59 mouth 2 [place] (AUGMENTIN) 00 :00 (two) Medical 875-125 mg times Branch per tablet daily for 14 days. ciprofloxac 2019-0 2020- No [id number] 750mg Take 1 Univers in HCl 750 05-01 tablet by ity of mg tablet 00:00: 04:59 mouth [place] 00 :00 every 12 Medical (twelve) Branch hours for 14 days. amoxicillin 2019-0 2020- No [id number] 1{tbl} Take 1 Univers -clavulanat 05-01 tablet by it y of e 00:00: 04:59 mouth 2 [place] (AUGMENTIN) 00 :00 (two) Medical 875-125 mg times Branch per tablet daily for 14 days. acetaminoph 2020-0 2020- No [id number] 650mg Take 2 Univers en 05-01 tablets by ity of (TYLENOL) 00:00: 00:00 mouth [place] 325 mg 00 :00 every 6 Medical tablet (six) Branch hours as needed for Pain (scale 4-6). ibuprofen 2020-0 2020- No [id number] 400mg Take 2 Univers 200 mg 05-01 tablets by ity of tablet 00:00: 00:00 mouth [place] 00 :00 every 6 Medical (six) Branch hours as needed for Pain (scale 1-3). ciprofloxac 2019-0 2020- No [id number] 750mg Take 1 Univers in HCl 750 05-01 tablet by ity of mg tablet 00:00: 00:00 mouth [place] 00 :00 every 12 Medical (twelve) Branch hours for 14 days. amoxicillin 2019-0 2020- No [id number] 1{tbl} Take 1 Univers -clavulanat 05-01-18 tablet by it y of e 00:00: 00:00 mouth 2 [place] (AUGMENTIN) 00 :00 (two) Medical 875-125 mg times Branch per tablet daily for 14 days. lactated 2020-0 2020- No 1000mL at 999 [facility] ers ringers IV 04-25 09-02 mL/hr, ity of infusion 14:15: 13:31 1,000 mL, [place] 1,000 mL 00 :00 Intravenou Medic al s, ONCE, 1 Branch dose, 04/25/20 at 0915, Routine amoxicillin 2020-0 Yes 1{tbl} 1 tablet, Univers -clavulanat 04-25 Oral, ity of e 01:00: Q12H, [place] (AUGMENTIN) 00 First dose Me dical 875-125 [...] lactated 2020-0 2020- No 1000mL at 125 [facility] ers ringers IV 04-23-01 mL/hr, ity of infusion 23:15: 16:44 1,000 mL, [place] 1,000 mL 00 :20 IV Medical Infusion, Branch CONTINUOUS , Starting Thu04/23/20 at 1815, Until Thu04/24/20 at 1144, Routine NaCl 0.9% 2020-0 2020- No 1000mL at 999 Uni vers (NS) bolus 04-23 mL/hr, ity of infusion 16:30: 16:14 1,000 mL, [place] 1,000 mL 00 :00 IV Medical [facility], Branch ONCE, 1 dose, 04/23/20 at 1130, STAT [...] 00 First dose Med ical mg on [facility] 04/21/20 at 1800, Until Discontinu ed, JOÃO
Re ason for Anti-Infec tive: Documented Infection< br>Documen dain Infection Site: Abdominal< br>Duratio n of Therapy: 7 days aspirin 2019-0 Yes 81mg 81 mg, Univers chewable 04-21 Oral, ity of tablet 81 14:00: DAILY, [place] mg 00 First dose Medical on [facility] 04/21/20 at 0900, Until Discontinu ed, Routine multivitami 2019-0 Yes 1{tbl} 1 tablet, Univers n tablet 1 04-21 Oral, ity of tablet 14:00: DAILY, [place] 00 First dose Medical on [facility] 04/21/20 at 0900, Until Discontinu ed, Routine amoxicillin 2019-0 2020- No 500mg 500 mg, U nivers -pot 04-21 Oral, TID, ity of clavulanate 13:00: 14:44 First dose [place] 500 mg 00 :32 on [facility] (AUGMENTIN 04/21/20 at [facility] 500) 0800, 500-125 mg Until tablet 500 Discontinu mg ed, JOÃO
Re ason for Anti-Infec tive: Documented Infection< br>Documen dain Infection Site: Abdominal< br>Duratio n of Therapy: 7 days ciprofloxac 2019-0 2020- No 400mg 400 mg, IV Univers [...] 325mg 325 mg, Unive rs tablet 325 8-25 08-28 Oral, ity of mg 14:00: 15:33 DAILY, [place] 00 :03 First dose Medical on [facility] 04/17/20 at 0900, Until Discontinu ed, Routine lidocaine 2019-2019- No PRN, Univers 1% (PF) 04-16 Starting ity of (XYLOCAINE) 21:17: 21:17 Mon [place] injection 53 :53 04/16/20 at [facility] 1617, Branch Until [facility] 04/16/20 at 1617, Routine FENTanyl PF 2019- No Slow IV Un piyush (SUBLIMAZE 04-16 Push, PRN, it y of (PF)) 21:16: 21:16 Starting [place] injection 07 :07 [facility] Medical 04/16/20 at Branch 1616, Until [facility] 04/16/20 at 1616, Routine midazolam 2019- No IV Push, Uni vers (VERSED) 04-16 PRN, ity of injection 21:16: 21:16 Starting [place] 07 :07 [facility] Medical 04/16/20 at [place] 1616, Until [facility] 04/16/20 at 1616, Routine piperacilli 2019- No [...] dose, Mon Medica l mL) 04/16/20 at [place] injection 0215, 120 mL Routine DAPTOmycin 2019- [...] 1211, Routine, Pain (scale 7-10) FENTanyl PF 2019-0 2020- No Slow IV [...] Branch piggyback (after last modificati on) on [facility] 04/12/20 at 1999, Last dose on [place] 04/15/20 at 1999, 100 mL
Reas on [...] 100 mL last MINI-BAG modificati on) on [facility] 04/12/20 at 1999, Until Discontinu ed, [...] dose, [place] Branch 04/12/20 at 1200, Routine
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 Restricted medication : BIA [...] First dose (after last modificati on) on [facility] 04/10/20 at 1700 magnesium 2019-2019- No 4g 4 g, IV Univ ers sulfate in 04-10 Piggyback, it y of water 4 13:30: 13:41 ONCE, 1 [place] gram/50 mL 00 :00 dose, [facility] Medi mariusz (8 %) IV 04/10/20 at Branc h Piggyback 4 0830, g Routine DAPTOmycin 2019- No 500mg 500 mg, IV Univers (CUBICIN) 04-10 Piggyback, ity of 500 mg in 06:00: 15:57 Q24H ABX, [place] NaCl 0.9% 00 :33 First dose Medi mariusz (NS) on [facility] piggyback 04/10/20 at 0100, Until Discontinu ed, 100 mL
R mitali for Anti-Infec tive: Documented Infection< br>Documen dain Infection Site: Abdominal< br>Duratio n of Therapy: 7 days
Re stricted use approved by: [employer] ibuprofen 2019- No 600mg 600 mg, Uni vers (IBU) 04-10 Oral, Q8H, ity of tablet 600 03:00: 10:59 First dose [place] mg 00 :06 on [facility] 04/09/20 at Branch 2200, Until Discontinu ed, [...] First dose Medi mariusz 0.9% (NS) on Thu Branch 100 mL 04/09/20 at MINI-BAG 2145, Until Discontinu ed, 100 mL
Reas on for Anti-Infec tive: Documented Infection< br>Documen dain Infection Site: Abdominal< br>Duratio n of Therapy: 7 days acetaminoph 2019- 2020- No 500mg 500 mg, U nivers en 04-09 Oral, Q6H, ity of (TYLENOL) 23:00: 10:54 First dose [place] tablet 500 00 :23 on [facility] Medical mg 04/09/20 at Branch 1800, Until Discontinu ed, Routine Total 2019- 2020- No at 85 Univers Parenteral 04-09 mL/hr, ity of Nutrition 22:00: 22:18 2,040 mL, [place] Adult 00 :00 TPNCONTINU Medical OUS, 1 Branch dose, First dose (after last reorder) on Thu04/09/20 at 1700 KCL 2019-0 2020- No IV Univers (POTASSIUM 04-09 Infusion, [...] of e 0.025% 13:00: 14:50 dose on [place] ([facility]) 00 :18 Mon Medical solution 04/09/20 [...] on 04/08/20 at 1200, Last dose on [facility] 04/09/20 at 0600, Routine
Indicatio n: Perioperat ector Patient acetaminoph 2019-0 2020- No 1000mg 1,000 mg, Univers en ADULT 04-07 IV ity of (OFIRMEV) 23:00: 14:28 Infusion, [place] injection 00 :31 Administer Medi mariusz 1,000 mg over 15 Branch Minutes, Q6H, 4 doses, First dose (after last reorder) on [facility] 04/07/20 at 1800, Last dose on 04/08/20 [...] IV ity of IV 20:00: 01:35 Piggyback, [place] Piggyback 00 :07 Q24H ABX, Medic al [...] [place] 5,000 Units 00 :30 us, Q8H, [facility] First dose Branch on 04/07/20 at 0600, [...] 00 :59 CONTINUOUS Medical , Starting Branch 8/14/20 at 2200, Until 04/07/20 at 0343, Routine hydrocortis 2019- No 50mg 50 mg, IV Univers one sod 04-07 Piggyback, ity o f succ 02:00: 02:09 Q6H, First [place] (CORTEF) 50 00 :14 dose on Medic al mg in NaCl Fri Branch 0.9% (NS) 04/06/20 at piggyback 2100, Until Discontinu ed, 50 mL sodium 2019- Yes 1{bottl 473 mL (1 Uni vers hypochlorit 04-07 e} Bottle), ity of e 0.5% 01:00: Topical, [place] (DAKINS) 00 BID, First Medic al solution [...] Piggyback 4 1600, g Routine lactated 2019- No 1000mL at 999 Univ ers ringers IV 04-06 08-14 mL/hr, ity of infusion 20:01: 20:15 1,000 mL, [place] 1,000 mL 00 :00 Intravenou Medic al s, ONCE, 1 Branch dose, Thu04/06/20 at 1515, STAT meropenem 2019- No 1000mg 1,000 mg, Univers (MERREM) 04-06 08-18 IV ity of 1,000 mg in 19:30: 01:35 Piggyback, [place] NaCl 0.9% 00 :07 Administer Medi mariusz [...] 1430, Until Thu04/06/20 at 2150, Routine lactated 2020- No 500mL at 999 Unive rs [...] Goal > or = 65 mmHg, Starting 8/14/20 at 1324
In itiate titration at 0.05 [...] CONTINUOUS , Starting 04/06/20 at 1115, Until Thu04/06/20 at 1330, Routine sodium 2020-0 2020- No ONCE INTRA Univ ers bicarbonate 04-06 PROCEDURE, i ty of 8.4 % (1 16:10: 16:29 [place] mEq/mL) 00 :35 Fri Medical injection 04/06/20 at [facility] 1110, Until Thu04/06/20 at 1129, Routine, Intra-op sodium 2020-0 2020- No ONCE INTRA Univ ers bicarbonate 04-06 PROCEDURE, i ty of 8.4 % (1 16:10: 16:29 [place] mEq/mL) 00 :35 Fri Medical injection 04/06/20 at [facility] ch 1110, Until Thu04/06/20 at 1129, Routine, Intra-op [...] as 00 :35 Fri Medical 04/06/20 at [place] 1039, Until Thu04/06/20 at 1129, Routine, Intra-op EPINEPHrine 2020-0 2020- No CONTINUOUS Univers 1 mg in 04-06 PRN, ity of NaCl 0.9% 15:29: 16:29 Starting [place] (NS) 00 :35 Fri Medical infusion 04/06/20 at [facility] 1029, Until Thu04/06/20 at 1129, Routine, Intra-op EPINEPHrine 2020-0 2020- No CONTINUOUS Univers 1 mg in 04-06 PRN, ity of NaCl 0.9% 15:29: 16:29 Starting [place] (NS) 00 :35 Fri Medical infusion 04/06/20 at [facility] 1029, Until Thu04/06/20 at 1129, Routine, Intra-op piperacilli 2020-0 2020- No CONTINUOUS Univers n-tazobacta 04-06 PRN, ity of m (ZOSYN) 14:57: 16:29 Starting [place] 3.375 g in 00 :35 Fri Medical NaCl 0.9% 04/06/20 at [facility] (NS) 100 mL 0957, infusion Until Discontinu ed, 100 mL, Intra-op piperacilli 2020-0 2020- No CONTINUOUS Univers n-tazobacta 04-06 PRN, ity of m (ZOSYN) 14:57: 16:29 Starting [place] 3.375 g in 00 :35 Fri Medical NaCl 0.9% 04/06/20 at [facility] (NS) 100 mL 0957, infusion Until Discontinu ed, 100 mL, Intra-op EPINEPHrine 2020-0 2020- No ONCE INTRA Univers 1:1,000 (1 04-06 PROCEDURE, it y of mg/mL) 14:54: 16:29 Starting [place] (ADRENALIN) 00 :35 Fri Medical injection 04/06/20 at [facility] 0954, Until Discontinu ed, Routine, Intra-op EPINEPHrine 2020-0 2020- No ONCE INTRA Univers 1:1,000 (1 04-06 PROCEDURE, it y of mg/mL) 14:54: 16:29 Starting [place] (ADRENALIN) 00 :35 Fri Medical injection 04/06/20 at [facility] 0954, Until Discontinu ed, Routine, Intra-op NORepinephr 2020-0 2020- No CONTINUOUS Univers ine 04-06 PRN, ity of (LEVOPHED) 14:39: 16:29 [place] 4 mg in 00 :35 Fri Medical NaCl 0.9% 04/06/20 at [facility] (NS) 250 mL 0939, infusion Intra-op NORepinephr 2020-0 2020- No CONTINUOUS Univers ine 04-06 PRN, ity of (LEVOPHED) 14:39: 16:29 Starting [place] 4 mg in 00 :35 Fri Medical NaCl 0.9% 04/06/20 at [facility] (NS) 250 mL 0939, infusion Intra-op rocuronium 2020-0 2020- No IV Push, Un piyush (ZEMURON) 04-06 ONCE INTRA ity of injection 14:36: 16:29 PROCEDURE, [place] 00 :35 Starting Medical [facility] Branch 04/06/20 at 0936, Until Thu04/06/20 at 1129, Routine, Intra-op rocuronium 2020-0 2020- No IV Push, Un piyush (ZEMURON) 04-06 ONCE INTRA ity of injection 14:36: 16:29 PROCEDURE, [place] 00 :35 Starting Medical [facility] Branch 04/06/20 at 0936, Until Thu04/06/20 at 1129, Routine, Intra-op phenylephri 2020-0 2020- No Intravenou Univers ne 04-06 s, ONCE ity of (VAZCULEP) 14:22: 16:29 INTRA [place] injection 00 :35 PROCEDURE, [facility] Starting Branch 04/06/20 at 0922, Until Thu04/06/20 at 1129, Routine, Intra-op phenylephri 2020-0 2020- No Intravenou Univers ne 04-0614 s, ONCE ity of (VAZCULEP) 14:22: 16:29 INTRA [place] injection 00 :35 PROCEDURE, [facility] mariusz Starting Branch 04/06/20 at 0922, Until [...] Thu04/06/20 at 1129, Routine, Intra-op propofol IV 2019-0 2020- No ONCE INTRA Univers infusion 04-06 PROCEDURE, ity of 14:15: 16:29 Starting [place] 00 :35 Fri Medical 04/06/20 at Branch 0915, Until Thu04/06/20 at 1129, Routine, Intra-op lidocaine 2019-0 2020- No ONCE INTRA U nivers 1% 04-06 PROCEDURE, ity of (XYLOCAINE) 14:15: 16:29 Starting [place] 100 mg/10 00 :35 Fri Medical mL (1 %) 04/06/20 at [facility] h injection 0915, Until Thu04/06/20 at 1129, Routine, Intra-op FENTanyl PF 2019-0 2020- No ONCE INTRA Univers (SUBLIMAZE 04-06 [...] of 14:15: 16:29 Starting [place] 00 :35 [facility] 04/06/20 at Branch 0915, Until Thu04/06/20 at 1129, Routine, Intra-op lidocaine 2020-0 2020- No ONCE INTRA U nivers 1% 04-06 PROCEDURE, ity of (XYLOCAINE) 14:15: 16:29 Starting [place] 100 mg/10 00 :35 [facility] Medical mL (1 %) 04/06/20 at [facility] h injection 0915, Until Thu04/06/20 at 1129, Routine, Intra-op FENTanyl PF 2020-0 2020- No ONCE INTRA Univers (SUBLIMAZE 04-06 PROCEDURE, it y of (PF)) 14:15: 16:29 Starting [place] injection 00 :35 [facility] 04/06/20 at Branch 0915, Until Thu04/06/20 at 1129, Routine, Intra-op albumin 2020-0 2020- No CONTINUOUS Uni vers (ALBUMINAR- 04-06 PRN, ity of 5) 5 % 14:10: 16:29 Starting [place] injection 00 :35 [facility] 04/06/20 at Branch 0910, Until Discontinu ed, Intra-op lactated 2020-0 2020- No CONTINUOUS Un piyush ringers IV 04-06 PRN, ity of infusion 14:10: 16:29 Starting [place] 00 :35 [facility] 04/06/20 at Branch 0910, Until Discontinu ed, Routine, Intra-op albumin 2020-0 2020- No CONTINUOUS Uni vers (ALBUMINAR- 04-06 PRN, ity of 5) 5 % 14:10: 16:29 Starting [place] injection 00 :35 [facility] 04/06/20 at Branch 0910, Until Discontinu ed, Intra-op lactated 2020-0 2020- No CONTINUOUS Un piyush ringers IV 04-06 PRN, ity of infusion 14:10: 16:29 Starting [place] 00 :35 [facility] 04/06/20 at Branch 0910, Until Discontinu [...] at 2200, Until Discontinu ed, Routine pantoprazol 2019- 2020- No 40mg 40 mg, IV Univers [...]
Indicatio n: Perioperat ector Patient D5W 0.45% 2019-2019- No IV Univers NaCl 04-05 Infusion, ity of (1/2NS) 1 L 19:15: 11:04 at 125 Javi as + KCL 20 00 :54 mL/hr, Medical mEq CONTINUOUS Branch , Starting [place] 04/05/20 at 1415, Until Thu04/06/20 at 0604, Routine acetaminoph 2019-0 2020- No 650mg 650 mg, U nivers [...] Routine
Indicatio n: Perioperat ector Patient alvimopan 2019- 2020- No 12mg 12 mg, Unive rs (ENTEREG) 04-04 Oral, ity of capsule 12 20:00: 20:23 DAILY AT [place] mg 00 :52 1500, 6 Medical doses, Branch First dose (after last reorder) on Thu04/04/20 at 1500, Last dose on Thu04/09/20 at 1500, Routine
Restricte d use approved by: HELENE MEDELLIN - SURGERY/GE NERAL D5W 0.45% 2019- No IV Univers NaCl 04-04 Infusion, ity [...] h Piggyback 4 0715, g Routine ketorolac 2020- No 30mg 30 mg, Unive rs (TORADOL) 04-04 Slow IV ity of injection 05:00: 16:23 Push, Q6H, [place] 30 mg 00 :00 3 doses, Medical First dose Branch (after last modificati on) on Thu04/04/20 at 0000, Last dose on Thu04/04/20 at 1200, Routine
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 Restricted medication : BIA [...] injection 4 26 Starting Medi mariusz mg [facility] Branch 04/03/20 at 1627, Until Discontinu ed, Routine, Nausea and Vomiting (N/V) alvimopan 2019-2019- No 12mg 12 mg, Unive rs (ENTEREG) 04-03 Oral, ity of capsule 12 13:45: 14:02 ONCE, 1 [place] mg 00 :00 dose, [facility] Medical 04/03/20 at Branch 0845, Routine
Restricte d use approved by: HELENE MEDELLIN - SURGERY/GE NERAL heparin 2020- No 5000U 5,000 Univers (porcine) 04-03 Units, ity of injection 12:00: 12:02 Subcutaneo [place] 5,000 Units 00 :00 , ONCE, Med ical 1 dose, Branch [facility] 04/03/20 at 0700, Routine gabapentin 2019- No 300mg 300 mg, Un piyush (NEURONTIN) 04-03 Oral, ity of 250 mg/5 mL 12:00: 12:02 ONCE, 1 [place] solution 00 :00 dose, Tue Medica l 300 mg 04/03/20 at Branch 0700, Routine D5W 0.45% 2019-2019- No IV Univers NaCl 04-02 Infusion, ity of (1/2NS) 1 L 23:30: 17:59 at 125 Javi as + KCL 20 00 :42 mL/hr, Medical mEq CONTINUOUS Branch , Starting 04/02/20 at 1830, Until 04/04/20 at 1259, Routine NaCl 0.9% 2019-2019- No 1000mL at 999 Uni vers (NS) bolus 04-02-10 mL/hr, ity of infusion 22:45: 21:48 1,000 mL, Javi as 1,000 mL 00 :00 IV Medical Piggyback, Branch ONCE, 1 dose, 04/02/20 at 1745, STAT pantoprazol 2019- No 40mg 40 mg, IV Univers e 04-0212 Piggyback, ity of (PROTONIX) 00:15: 10:49 Q24H, [...] mL/hr, Medical mEq CONTINUOUS Branch , Starting 04/01/20 at 1915, Until 04/02/20 at 1816, Routine acetaminoph 2019- 2020- No 650mg 650 mg, U nivers en 04-01 Oral, ity of (TYLENOL) 23:11: 21:31 Q6HPRN, [place] tablet 650 57 :27 Starting Medic al mg [place] 04/01/20 Branch at 1811, Until 04/03/20 at 1631, Routine, Pain (scale 1-3), Pain (scale 4-6) NaCl 0.9% 0 2020- No 1000mL at 999 Uni vers (NS) bolus 04-01 mL/hr, ity of infusion 23:10: 00:18 1,000 mL, Javi as 1,000 mL 00 :00 IV Medical Piggyback, Branch ONCE, 1 dose, [place] 04/01/20 at 1815, STAT lactulose 2019-0 2020- No 15mL 15 mL, Unive rs (CEPHULAC) 04-01 Oral, ity of solution 15 16:15: 16:01 ONCE, 1 [place] mL 00 :00 dose, [facility] 04/01/20 at Branch 1115, Routine Polyethylen 2019-0 2020- No 17g 17 g, Univ ers e Glycol 03-31 Oral, BID ity o f 3350 15:45: 23:13 MEALS, [place] (MIRALAX) 00 :14 First dose Medi mariusz powder 17 g on [facility] Branch 03/31/20 at 1045, Until Discontinu ed, [...] 2200, Until 04/01/20 at 1813, Routine ondansetron 2019- 2020- No 4mg 4 mg, Slow Univers (ZOFRAN 03-31 IV Push, ity of (PF)) 01:51: 21:31 Q6HPRN, [place] injection 4 28 :27 Starting Medi mariusz mg Thu03/30/20 Branch at 2051, Until 04/03/20 at 1631, Routine, Nausea and Vomiting (N/V) iohexol 2019-0 2019- No 100mL 100 mL, Unive rs [...] IV Medical Infusion, Branch ONCE, 1 dose, Thu03/30/20 at 1715, JOÃO metoclopram 2020-0 2020- No 5mg 5 mg, Slow Univers tammi HCl 8-05 08-06 IV Push, ity of (REGLAN) 01:00: 00:59 Q12H, 2 [place] injection 5 00 :00 doses, Medica l mg First dose Branch on Thu03/27/20 at 2000, Last dose on Thu03/28/20 at 0800, Routine metoclopram 2020-0 Yes [id number] 5mg Take 1 Univers tammi HCl 8-05 tablet by ity of (REGLAN) 5 00:00: mouth [place] mg tablet 00 every 12 Medica l (twelve) Branch hours as needed for Nausea and Vomiting (N/V) (constipat ion). metoclopram 2020-0 Yes [id number] 5mg Take 1 Univers tammi HCl 8-05 tablet by ity of (REGLAN) 5 00:00: mouth [place] mg tablet 00 every 12 Medica l (twelve) Branch hours as needed for Nausea and Vomiting (N/V) (constipat ion). metoclopram 2020-0 Yes [id number] 5mg Take 1 Univers tammi HCl 8-05 tablet by ity of (REGLAN) 5 00:00: mouth [place] mg tablet 00 every 12 Medica l (twelve) Branch hours as needed for Nausea and Vomiting (N/V) (constipat ion). metoclopram 2020-0 Yes [id number] 5mg Take 1 Univers tammi HCl 8-05 tablet by ity of (REGLAN) 5 00:00: mouth [place] mg tablet 00 every 12 Medica l (twelve) Branch hours as needed for Nausea and Vomiting (N/V) (constipat ion). metoclopram 2020-0 2020- No [id number] 5mg Take 1 Univers tammi HCl 8-05 [...]
Indica tion: Perioperat ector Patient metoclopram 2019-0 2019- No 5mg 5 mg, Slow Univers [...] IV Push, ity of (PF)) 02:46: Q6HPRN, [place] injection 4 11 Starting Medi mariusz mg [place] 03/25/20 Branch at 2146, Until Discontinu ed, Routine, Nausea and Vomiting (N/V) acetaminoph 2020-0 Yes 650mg 650 mg, Un piyush en 03 Oral, ity of (TYLENOL) 02:46: Q6HPRN, [place] tablet 650 05 Starting Medic al mg [place] 03/25/20 Branch at 2146, Until Discontinu ed, Routine, Pain (scale 1-3) iohexol 2020-0 2020- No 100mL 100 mL, Unive rs (OMNIPAQUE 03-26 08-03 Intravenou it y of 350 01:30: 01:30 s, ONCE, 1 [place] BULK-100 00 :00 dose, [place] Medica l mL) 03/25/20 at Branch injection 2030, 100 mL Routine NaCl 0.9% 2020-0 2020- No 1000mL at 999 Uni vers (NS) bolus 03-26 08-03 mL/hr, ity of infusion 00:45: 00:42 1,000 mL, Javi as 1,000 mL 00 :00 IV Medical Infusion, Branch ONCE, 1 dose, 03/25/20 at 1945, JOÃO enoxaparin 2019-0 Yes 40mg 40 mg, Unive rs (LOVENOX) 03-03 Subcutaneo ity of injection 14:00: [place], DAILY, [place] 40 mg 00 First dose Medical on Sat Branch 03/03/20 at 0900, Until Discontinu ed, Routine lactated 2019-0 Yes 1000mL at 100 Unive rs ringers IV 7-11 mL/hr, ity of infusion 04:15: 1,000 mL, [place] 1,000 mL 00 IV Medical Infusion, Branch CONTINUOUS , Starting Thu03/02/20 at 2315, Until Discontinu ed, Routine ondansetron 2019-0 Yes 4mg 4 mg, Slow Univers (ZOFRAN 03-03 IV Push, ity of (PF)) 04:05: Q6HPRN, [place] injection 4 40 Starting Medi mariusz mg Fri Branch 03/02/20 at 2305, Until Discontinu ed, Routine, Nausea and Vomiting (N/V) acetaminoph 2019-0 Yes 650mg 650 mg, Un piyush en 11 Oral, ity of (TYLENOL) 04:05: Q6HPRN, [place] tablet 650 30 Starting Medic al mg Fri Branch 03/02/20 at 2305, Until Discontinu ed, Routine, Pain (scale 1-3) Polyethylen 2020-0 Yes [id number] 17g Take 1 Univers e Glycol 7-07 Packet by ity of 3350 17 00:00: mouth [place] gram powder 00 daily. Medica l Branch Polyethylen 2020-0 Yes [id number] 17g Take 1 Univers e Glycol 7-07 Packet by ity of 3350 17 00:00: mouth [place] gram powder 00 daily. Medica l Branch Polyethylen 2020-0 Yes [id number] 17g Take 1 Univers e Glycol 7-07 Packet by ity of 3350 17 00:00: mouth [place] gram powder 00 daily. Medica l Branch Polyethylen 2020-0 Yes [id number] 17g Take 1 Univers e Glycol 7-07 Packet by ity of 3350 17 00:00: mouth [place] gram powder 00 daily. Medica l Branch Polyethylen 2020-0 2020- No [id number] 17g Take 1 Univers e Glycol 7-07 08-05 Packet by ity o f 3350 17 00:00: 00:00 mouth [place] gram powder 00 :00 daily. Medica l Branch Polyethylen 2020-0 Yes 17g 17 g, Unive rs e Glycol 7-06 Oral, ity of 3350 18:15: DAILY, [place] (MIRALAX) 00 First dose Medi mariusz powder 17 g on [facility] 02/27/20 at 1315, Until Discontinu ed, Routine enoxaparin 2020-0 Yes 40mg 40 mg, Unive rs (LOVENOX) 7-06 Subcutaneo ity of injection 14:00: [place], DAILY, [place] 40 mg 00 First dose Medical on [facility] 02/27/20 at 0900, Until Discontinu ed, Routine polyethylen 2020-0 Yes [id number] 17g Take 17 g Univers e glycol 17 7-06 by mouth ity of gram/dose 00:00: daily. [place] powder 00 [facility] polyethylen 2020-0 Yes [id number] 17g Take 17 g Univers e glycol 17 7-06 by mouth ity of gram/dose 00:00: daily. [place] powder 00 [facility] polyethylen 2020-0 Yes [id number] 17g Take 17 g Univers e glycol 17 7-06 by mouth ity of gram/dose 00:00: daily. [place] powder 00 [facility] polyethylen 2020-0 Yes [id number] 17g Take 17 g Univers e glycol 17 7-06 by mouth ity of gram/dose 00:00: daily. [place] powder 00 [facility] polyethylen 2020-0 Yes [id number] 17g Take 17 g Univers e glycol 17 7-06 by mouth ity of gram/dose 00:00: daily. [place] powder [facility] polyethylen 2020-0 Yes [id number] 17g Take 17 g Univers e glycol 17 7-06 by mouth ity of gram/dose 00:00: daily. [place] powder 00 [facility] polyethylen 2020-0 Yes [id number] 17g Take 17 g Univers e glycol 17 7-06 by mouth ity of gram/dose 00:00: daily. [place] powder 00 [facility] polyethylen 2020-0 Yes [id number] 17g Take 17 g Univers e glycol 17 7-06 by mouth ity of gram/dose 00:00: daily. [place] powder [facility] polyethylen 0 2020- No [id number] 17g Take 17 g Univers e glycol 17 7- 09-08 by mouth ity of gram/dose 00:00: 00:00 daily. [place] powder 00 :00 [facility] iohexol 2019- No 120mL 120 mL, Unive rs (OMNIPAQUE 02-25 Intravenou it y of 350 18:30: 18:30 s, ONCE, 1 [place] BULK-100 00 :00 dose, [place] [facility]ica l mL) 02/26/20 at Branch injection 1330, 120 mL Routine lactated 2019- No 1000mL at 125 Univ ers ringers IV 02-25 07-06 mL/hr, ity of infusion 16:00: 17:57 1,000 mL, Javi as 1,000 mL 00 :14 IV Medical Infusion, Branch CONTINUOUS , Starting 02/26/20 at 1100, Until 02/27/20 at 1257, Routine acetaminoph Yes 650mg 650 mg, Un piyush en 05 Oral, ity of (TYLENOL) 15:01: Q6HPRN, [place] tablet 650 46 Starting Medic al mg 02/26/20 Branch at 1001, Until Discontinu ed, Routine, Pain (scale 1-3), Pain (scale 4-6) pantoprazol 2019- 2020- No [id number] 40mg Take 1 Univers e 40 mg EC 605-07 tablet by ity of tablet 00:00: 04:59 mouth [place] 00 :00 daily for Medical 90 days. [place] pantoprazol 2019-0 2020- No [id number] 40mg Take 1 Univers e 40 mg EC 6-08 05-14 tablet by ity of tablet 00:00: 04:59 mouth [place] 00 :00 daily for Medical 90 days. Branch pantoprazol 2019-0 2020- No [id number] 40mg Take 1 Univers e 40 mg EC 6-15 -14 tablet by ity of tablet 00:00: 04:59 mouth [place] 00 :00 daily for Medical 90 days. Branch pantoprazol 2020-0 2019- No [id number] 40mg Take 1 Univers e 40 mg EC 6-15 -14 tablet by ity of tablet 00:00: 04:59 mouth [place] 00 :00 daily for Medical 90 days. Branch pantoprazol 2019-0 2019- No [id number] 40mg Take 1 Univers e 40 mg EC 6-15 -14 tablet by ity of tablet 00:00: 04:59 mouth [place] 00 :00 daily for Medical 90 days. Branch pantoprazol 2020-0 2019- No [id number] 40mg Take 1 Univers e 40 mg EC 6-15 14 tablet by ity of tablet 00:00: 04:59 mouth [place] 00 :00 daily for Medical 90 days. Branch pantoprazol 2019-0 2019- No [id number] 40mg Take 1 Univers e 40 mg EC 6-15 -14 tablet by ity of tablet 00:00: 04:59 mouth [place] 00 :00 daily for Medical 90 days. Branch pantoprazol 2019-0 2019- No [id number] 40mg Take 1 Univers e 40 mg EC 6-15 -14 tablet by ity of tablet 00:00: 04:59 mouth [place] 00 :00 daily for Medical 90 days. Branch pantoprazol 2019-0 2019- No [id number] 40mg Take 1 Univers e 40 mg EC 6-15 -14 tablet by ity of tablet 00:00: 04:59 mouth [place] 00 :00 daily for Medical 90 days. Branch pantoprazol 2019-0 2019- No [id number] 40mg Take 1 Univers e 40 mg EC 6-15 -14 tablet by ity of tablet 00:00: 04:59 mouth [place] 00 :00 daily for Medical 90 days. Branch pantoprazol 2020-0 2020- No [id number] 40mg Take 1 Univers e 40 mg EC 6-15 -14 tablet by ity of tablet 00:00: 04:59 mouth [place] 00 :00 daily for Medical 90 days. Branch pantoprazol 2020-0 2020- No [id number] 40mg Take 1 Univers e 40 mg EC 6-15 -14 tablet by ity of tablet 00:00: 04:59 mouth [place] 00 :00 daily for Medical 90 days. Branch pantoprazol 2019-0 2020- No [id number] 40mg Take 1 Univers e 40 mg EC 6-15 09-08 tablet by ity of tablet 00:00: 00:00 mouth [place] 00 :00 daily for Medical 90 days. Branch docusate 2020-0 2020- No [id number] 100mg Take 1 Univers 100 mg 6-14 09-13 capsule by ity of capsule 00:00: 04:59 mouth 2 [place] 00 :00 (two) Medical times Branch daily for 90 days. docusate 2020-0 2020- No [id number] 100mg Take 1 Univers 100 mg 6-14 09-13 capsule by ity of capsule 00:00: 04:59 mouth 2 [place] 00 :00 (two) Medical times Branch daily for 90 days. docusate 2019-0 2020- No [id number] 100mg Take 1 Univers 100 mg 6-14 09-13 capsule by ity of capsule 00:00: 04:59 mouth 2 [place] 00 :00 (two) Medical times Branch daily for 90 days. docusate 2020-0 2020- No [id number] 100mg Take 1 Univers 100 mg 6-14 09-13 capsule by ity of capsule 00:00: 04:59 mouth 2 [place] 00 :00 (two) Medical times Branch daily for 90 days. docusate 2020-0 2020- No [id number] 100mg Take 1 Univers 100 mg 6-14 09-13 capsule by ity of capsule 00:00: 04:59 mouth 2 [place] 00 :00 (two) Medical times Branch daily for 90 days. docusate 2020-0 2020- No [id number] 100mg Take 1 Univers 100 mg 6-14 09-13 capsule by ity of capsule 00:00: 04:59 mouth 2 [place] 00 :00 (two) Medical times Branch daily for 90 days. docusate 2020-0 2020- No [id number] 100mg Take 1 Univers 100 mg 6-14 09-13 capsule by ity of capsule 00:00: 04:59 mouth 2 [place] 00 :00 (two) Medical times Branch daily for 90 days. docusate 2020-0 2020- No [id number] 100mg Take 1 Univers 100 mg 6-14 09-13 capsule by ity of capsule 00:00: 04:59 mouth 2 [place] 00 :00 (two) Medical times Branch daily for 90 days. docusate 2020-0 2020- No [id number] 100mg Take 1 Univers 100 mg 02-04 capsule by ity of capsule 00:00: 04:59 mouth 2 [place] 00 :00 (two) Medical times Branch daily for 90 days. docusate 2020-0 2020- No [id number] 100mg Take 1 Univers 100 mg 02-04 capsule by ity of capsule 00:00: 04:59 mouth 2 [place] 00 :00 (two) Medical times Branch daily for 90 days. docusate 2020-0 2020- No [id number] 100mg Take 1 Univers 100 mg 02-04 capsule by ity of capsule 00:00: 04:59 mouth 2 [place] 00 :00 (two) Medical times Branch daily for 90 days. docusate 2020-0 2020- No [id number] 100mg Take 1 Univers 100 mg 02-04 capsule by ity of capsule 00:00: 04:59 mouth 2 [place] 00 :00 (two) Medical times Branch daily for 90 days. docusate 2020-0 2020- No [id number] 100mg Take 1 Univers 100 mg 02-04 capsule by ity of capsule 00:00: 00:00 mouth 2 [place] 00 :00 (two) Medical times Branch daily for 90 days. pantoprazol 2019-0 Yes 40mg 40 mg, Univ ers e 01-28 Oral, ity of (PROTONIX) 14:00: DAILY, [place] EC tablet 00 First dose Medi amriusz 40 mg on [place] [facility] 01/29/20 at [...] Yes 50ug 50 mcg, Uni vers ne 6-07 Oral, ity of (SYNTHROID) 11:00: QAM-0600, T [...] 00 :31 CONTINUOUS Medical , Starting Branch [facility] 01/28/20 at 2245, Until [place] 02/05/20 at 1341, Routine bisacodyL 2020-0 2020- No 10mg 10 mg, Unive rs (DULCOLAX) 01-28 Rectal, ity o f suppository 03:00: 02:52 ONCE, 1 [place] 10 mg 00 :00 dose, Sat Medical 01/28/20 at Branch 2200, Routine ondansetron 2019-0 Yes 4mg 4 mg, Slow Univers (ZOFRAN 01-28 IV Push, ity of (PF)) 01:32: Q6HPRN, [place] injection 4 44 Starting Medi mariusz mg [...] 07 Oral, ity of (TYLENOL) 01:32: Q6HPRN, [place] tablet 650 14 Starting Medic al mg 01/28/20 Branch at 2031, Until Discontinu ed, Routine, Pain (scale 1-3) morpHINE 2020-0 2020- No 4mg 4 mg, Slow Un piyush injection 4 01-2806 IV Push, ity of mg 00:45: 23:55 [...] Yes 10mg 10 mg, Univ ers azine -03 Slow IV ity of (COMPAZINE) 06:12: Push, [place] injection 17 Q6HPRN, Medical 10 mg Starting Branch Thu01/25/20 at 0112, Until Discontinu ed, Routine, Nausea and Vomiting (N/V) iohexol 2020-0 2020- No 100mL 100 mL, Unive rs (OMNIPAQUE 01-24 Intravenou it y of 350 02:15: 02:11 s, ONCE, 1 [place] BULK-100 00 :00 dose, Tue Medica l mL) 01/24/20 at [place] injection 2114, 100 mL Routine morpHINE 2019- No 4mg 4 mg, Slow Un piyush injection 4 01-24 IV Push, ity of mg 01:45: 00:43 ONCE, 1 [place] 00 :00 dose, Tue Medical 01/24/20 at [place] 2044, Routine ondansetron 2019- No 4mg 4 mg, Slow Univers (ZOFRAN 01-24 IV Push, ity of (PF)) 00:45: 00:58 Administer [place] injection 4 00 :00 over 15 Medic al mg Minutes, [place] ONCE, 1 dose, [facility] 01/24/20 at 194, STAT NaCl 0.9% 2019- No 1000mL at 999 Uni vers (NS) bolus 01-24 mL/hr, ity of infusion 00:45: 01:15 1,000 mL, Javi as 1,000 mL 00 :00 IV Medical Infusion, [place] ONCE, 1 dose, [facility] 01/24/20 at 194, JOÃO mineral oil 2020- No [id number] 30mL Take 30 mL Univers oral liquid 12-11 05-05 by mouth ity of 00:00: 04:59 daily for [place] 00 :00 14 days. [facility] tamsulosin 2019-0 Yes .4mg QD Take [...] n (DAILY 04-14 abuse, in tablet by Mixpo) 00:00: 00:00 remission mouth tablet 00 :00 daily. 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 multivitami 2021- No Alcohol 1{tbl} QD Take 1 [place]ne n (DAILY 04-14 abuse, in tablet by Mixpo) 00:00: 00:00 remission mouth tablet 00 :00 daily. 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 multivitami 2021- No Alcohol 1{tbl} QD Take 1 [place] n (DAILY 04-14 abuse, in tablet by Mixpo) 00:00: 00:00 remission mouth tablet 00 :00 daily. levothyroxi Yes 50ug Take 1 Univ ers ne 50 mcg 2-07 tablet by ithiram o f tablet 00:00: mouth 00 every Medical morning. Branch levothyroxi Yes [...] Immunizations Ordered Filled Immunization Date Status Comments [facility] e Immunization Name Name Influenza Virus [...] Universit y of Vaccine Quad IM, 00:00:00 [place] Me dical Preserv and ABX Branch Free [...] y of Vaccine Quad .5 mL 00:00:00 [place] Medical IM 6+ MO Branch Influenza Virus [...] y of Vaccine Quad .5 mL 00:00:00 [place] Medical IM 6+ MO Branch Influenza Virus 2020-08-24 Completed Universit y of Vaccine Quad .5 mL 00:00:00 [place] Medical IM 6+ MO Branch Influenza Virus 2020-08-24 Completed Universit y of Vaccine Quad .5 mL 00:00:00 [place] Medical IM 6+ MO Branch Influenza Virus 2020-08-24 Completed Universit y of Vaccine Quad .5 mL 00:00:00 [place] Medical IM 6+ MO Branch Influenza Virus 2020-08-24 Completed Universit y of Vaccine Quad .5 mL 00:00:00 [place] Medical IM 6+ MO Branch PPD 2017-04-14 Completed [facility] 00:00:00 PPD 2017-04-14 Completed [facility] 00:00:00 PPD 2017-04-14 Completed [facility] 00:00:00 Influenza Virus 2016-05-16 Completed Universit y of Vaccine Quad IM 3+ 00:00:00 [facility] Influenza Virus 2016-05-16 Completed Universit y of Vaccine Quad IM 3+ 00:00:00 [facility] Influenza Virus 2016-05-16 Completed Universit y of Vaccine Quad IM 3+ 00:00:00 [facility] Influenza Virus 2016-05-16 Completed Universit y of Vaccine Quad IM 3+ 00:00:00 [facility] Influenza Virus 2016-05-16 Completed Universit y of Vaccine Quad IM 3+ 00:00:00 [facility] Influenza Virus 2016-05-16 Completed Universit y of Vaccine Quad IM 3+ 00:00:00 [facility] Influenza Virus 2016-05-16 Completed Universit y of Vaccine Quad IM 3+ 00:00:00 [facility] Influenza Virus 2016-05-16 Completed Universit y of Vaccine Quad IM 3+ 00:00:00 [facility] Influenza Virus 2016-05-16 Completed Universit y of Vaccine Quad IM 3+ 00:00:00 [facility] Influenza Virus 2016-05-16 Completed Universit y of Vaccine Quad IM 3+ 00:00:00 [facility] Influenza Virus 2016-05-16 Completed Universit y of Vaccine Quad IM 3+ 00:00:00 [facility] Influenza Virus 2016-05-16 Completed Universit y of Vaccine Quad IM 3+ 00:00:00 [facility] Influenza Virus 2016-05-16 Completed Universit y of Vaccine Quad IM 3+ 00:00:00 [facility] Influenza Virus 2016-05-16 Completed Universit y of Vaccine Quad IM 3+ 00:00:00 [facility] Influenza Virus 2016-05-16 Completed Universit y of Vaccine Quad IM 3+ 00:00:00 [facility] Influenza Virus 2016-05-16 Completed Universit y of Vaccine Quad IM 3+ 00:00:00 [facility] Influenza Virus 2016-05-16 Completed Universit y of Vaccine Quad IM 3+ 00:00:00 [facility] Influenza Virus 2016-05-16 Completed Universit y of Vaccine Quad IM 3+ 00:00:00 [facility] Influenza Virus 2016-05-16 Completed Universit y of Vaccine Quad IM 3+ 00:00:00 [facility] Influenza Virus 2016-05-16 Completed Universit y of Vaccine Quad IM 3+ 00:00:00 [facility] Influenza Virus 2016-05-16 Completed Universit y of Vaccine Quad IM 3+ 00:00:00 [facility] Influenza Virus 2016-05-16 Completed Universit y of Vaccine Quad IM 3+ 00:00:00 [facility] Influenza Virus 2016-05-16 Completed Universit y of Vaccine Quad IM 3+ 00:00:00 [facility] Influenza Virus 2016-05-16 Completed Universit y of Vaccine Quad IM 3+ 00:00:00 [facility] Influenza Virus 2016-05-16 Completed Universit y of Vaccine Quad IM 3+ 00:00:00 [facility] Influenza Virus 2016-05-16 Completed Universit y of Vaccine Quad IM 3+ 00:00:00 [facility] Influenza Virus 2016-05-16 Completed Universit y of Vaccine Quad IM 3+ 00:00:00 [facility] Influenza Virus 2016-05-16 Completed Universit y of Vaccine Quad IM 3+ 00:00:00 [facility] Influenza Virus 2016-05-16 Completed Universit y of Vaccine Quad IM 3+ 00:00:00 [facility] Influenza Virus 2016-05-16 Completed Universit y of Vaccine Quad IM 3+ 00:00:00 [facility] Influenza Virus 2016-05-16 Completed Universit y of Vaccine Quad IM 3+ 00:00:00 [facility] Influenza Virus 2016-05-16 Completed Universit y of Vaccine Quad IM 3+ 00:00:00 [facility] Influenza Virus 2016-05-16 Completed Universit y of Vaccine Quad IM 3+ 00:00:00 [facility] Influenza Virus 2016-05-16 Completed Universit y of Vaccine Quad IM 3+ 00:00:00 [facility] Influenza Virus 2016-05-16 Completed Universit y of Vaccine Quad IM 3+ 00:00:00 [facility] Influenza Virus 2016-05-16 Completed Universit y of Vaccine Quad IM 3+ 00:00:00 [facility] Influenza Virus 2016-05-16 Completed Universit y of Vaccine Quad IM 3+ 00:00:00 [facility] Influenza Virus 2016-05-16 Completed Universit y of Vaccine Quad IM 3+ 00:00:00 [facility] Influenza Virus 2016-05-16 Completed Universit y of Vaccine Quad IM 3+ 00:00:00 [facility] Influenza Virus 2016-05-16 Completed Universit y of Vaccine Quad IM 3+ 00:00:00 [facility] Influenza Virus 2016-05-16 Completed Universit y of Vaccine Quad IM 3+ 00:00:00 [facility] Influenza Virus 2016-05-16 Completed Universit y of Vaccine Quad IM 3+ 00:00:00 [facility] Influenza Virus 2016-05-16 Completed Universit y of Vaccine Quad IM 3+ 00:00:00 [facility] Influenza Virus 2016-05-16 Completed Universit y of Vaccine Quad IM 3+ 00:00:00 [facility] Influenza Virus 2016-05-16 Completed Universit y of Vaccine Quad IM 3+ 00:00:00 [facility] Influenza Virus 2016-05-16 Completed Universit y of Vaccine Quad IM 3+ 00:00:00 [facility] Influenza Virus 2016-05-16 Completed Universit y of Vaccine Quad IM 3+ 00:00:00 [facility] Influenza Virus 2016-05-16 Completed Universit y of Vaccine Quad IM 3+ 00:00:00 [facility] Influenza Virus 2016-05-16 Completed Universit y of Vaccine Quad IM 3+ 00:00:00 [facility] Influenza Virus 2016-05-16 Completed Universit y of Vaccine Quad IM 3+ 00:00:00 [facility] Influenza Virus 2016-05-16 Completed Universit y of Vaccine Quad IM 3+ 00:00:00 [facility] Influenza Virus 2016-05-16 Completed Universit y of Vaccine Quad IM 3+ 00:00:00 [facility] Influenza Virus 2016-05-16 Completed Universit y of Vaccine Quad IM 3+ 00:00:00 [facility] Influenza Virus 2016-05-16 Completed Universit y of Vaccine Quad IM 3+ 00:00:00 [facility] Influenza Virus 2016-05-16 Completed Universit y of Vaccine Quad IM 3+ 00:00:00 [facility] [facility] Influenza Virus 2016-05-16 Completed [facility] 3+ 00:00:00 [facility] Influenza Virus 2016-05-16 Completed [facility] 3+ 00:00:00 [facility] Influenza Virus 2016-05-16 Completed [facility] 3+ 00:00:00 [facility] Influenza Virus 2016-05-16 Completed [facility] IM 3+ 00:00:00 [facility] Influenza Virus 2016-05-16 Completed [facility] IM 3+ 00:00:00 [facility] Influenza Virus 2016-05-16 Completed [facility] IM 3+ 00:00:00 [facility] Influenza Virus 2016-05-16 Completed [facility] IM 3+ 00:00:00 [facility] Influenza Virus 2016-05-16 Completed [facility] IM 3+ 00:00:00 [facility] Influenza Virus 2016-05-16 Completed [facility] IM 3+ 00:00:00 [facility] Influenza Virus 2016-05-16 Completed [facility] IM 3+ 00:00:00 [facility] Influenza Virus 2016-05-16 Completed [facility] IM 3+ 00:00:00 [facility] Influenza Virus 2016-05-16 Completed [facility] IM 3+ 00:00:00 [facility] Influenza Virus 2016-05-16 Completed [facility] IM 3+ 00:00:00 [facility] Influenza Virus 2016-05-16 Completed [facility] IM 3+ 00:00:00 [facility] Influenza Virus 2016-05-16 Completed [facility] IM 3+ 00:00:00 [facility] Influenza Virus 2016-05-16 Completed [facility] IM 3+ 00:00:00 [facility] Influenza Virus 2016-05-16 Completed [facility] IM 3+ 00:00:00 [facility] Influenza Virus 2016-05-16 Completed [facility] IM 3+ 00:00:00 [facility] Vital Signs Vital Name Observation Time Observation Value Comments Source Systolic blood 2022-04-10 115 mm[Hg] University of pressure 05:05:[address] [facility] Diastolic blood 2022-04-10 93 mm[Hg] University o f pressure 05:05:[address] [facility] Heart rate 2022-04-10 87 /min University 05:05:[address] [facility] Respiratory rate 2022-04-10 15 /min University 05:05:[address] [facility] Oxygen saturation 2022-04-10 100 /min [place] of in Arterial blood 05:05:13 [facility] mariusz by Pulse oximetry [place] Body temperature 2022-04-10 36.61 Tasia [place] of 01:35:[address] [facility] Body height 2022-04-10 185.4 cm University of 01:35:[address] [facility] Body weight 2022-04-10 68.04 kg University of 01:35:[address] [facility] BMI 2022-04-10 19.79 kg/m2 University of 01:35:[address] [facility] Systolic blood 2022-04-08 86 mm[Hg] University of pressure 13:00:[address] [facility] Diastolic blood 2022-04-08 75 mm[Hg] University o f pressure 13:00:[address] [facility] Heart rate 2022-04-08 61 /min University of 13:00:[address] [facility] Body temperature 2022-04-08 35.67 Tasia University of 13:00:[address] [facility] Respiratory rate 2022-04-08 17 /min University of 13:00:[address] [facility] Oxygen saturation 2022-04-08 95 /min University of in Arterial blood 13:00:00 [place] [facility] by Pulse oximetry Branch Body weight 2022-04-06 72.984 kg University of 08:20:[address] [facility] BMI 2022-04-06 21.23 kg/m2 [place] of 08:20:[address] [facility] Body height 2022-04-02 185.4 cm University of 16:37:[address] [facility] HEIGHT 2022-03-06 185.4 cm 12:05:00 WEIGHT 2022-03-06 65.772 kg 12:05:00 HEIGHT 2022-03-06 185.4 cm 12:05:00 WEIGHT 2022-03-06 65.772 kg 12:05:00 HEIGHT 2022-03-06 185.4 cm 12:05:00 WEIGHT 2022-03-06 65.772 kg 12:05:00 Systolic blood 2021-09-14 106 mm[Hg] University of pressure 03:17:[address] [facility] Diastolic blood 2021-09-14 55 mm[Hg] University o f pressure 03:17:[address] [facility] Heart rate 2021-09-14 86 /min University 03:17:[address] [facility] Body temperature 2021-09-14 36.89 Tasia University 03:17:[address] [facility] Respiratory rate 2021-09-14 18 /min University 03:17:[address] [facility] Oxygen saturation 2021-09-14 98 /min [place] of in Arterial blood 03:17:00 [facility] by Pulse oximetry Branch Systolic blood 2021-09-12 90 mm[Hg] University of pressure 22:20:[address] [facility] Diastolic blood 2021-09-12 66 mm[Hg] University o f pressure 22:20:[address] [facility] Heart rate 2021-09-12 97 /min University of 22:20:[address] [facility] Body temperature 2021-09-12 36.61 Tasia University 22:20:[address] [facility] Respiratory rate 2021-09-12 16 /min University of 22:20:[address] [facility] Oxygen saturation 2021-09-12 98 /min [place] of in Arterial blood 22:20:00 [facility] by Pulse oximetry Branch Body weight 2021-09-12 68.04 kg University of 20:25:[address] [facility] BMI 2021-09-12 19.79 kg/m2 University of 20:25:[address] [facility] Systolic blood 2021-09-12 103 mm[Hg] University of pressure 13:29:[address] [facility] Diastolic blood 2021-09-12 67 mm[Hg] University o f pressure 13:29:[address] [facility] Heart rate 2021-09-12 91 /min University of 13:29:[address] [facility] Body temperature 2021-09-12 36.72 Tasia University of 13:29:[address] [facility] Respiratory rate 2021-09-12 33 /min University of 13:29:[address] [facility] Oxygen saturation 2021-09-12 98 /min University of in Arterial blood 13:29:00 [facility] by Pulse oximetry Branch Body weight 2021-09-12 68.04 kg University of 12:17:[address] [facility] BMI 2021-09-12 19.79 kg/m2 University of 12:17:[address] [facility] Systolic blood 2021-09-09 100 mm[Hg] University of pressure 04:59:[address] [facility] Diastolic blood 2021-09-09 60 mm[Hg] University o f pressure 04:59:[address] [facility] Heart rate 2021-09-09 85 /min [facility] 04:59:[address] [facility] Body temperature 2021-09-09 36.5 Tasia University 04:59:[address] [facility] Respiratory rate 2021-09-09 16 /min [facility] 04:59:[address] [facility] Body height 2021-09-09 185.4 cm [facility] 04:59:[address] [facility] Body weight 2021-09-09 68.04 kg [facility] 04:59:[address] [facility] BMI 2021-09-09 19.79 kg/m2 [facility] 04:59:[address] [facility] Oxygen saturation 2021-09-09 98 /min [place] of in Arterial blood 04:59:00 [facility] by Pulse oximetry Branch Systolic blood 2021-09-08 129 mm[Hg] University of pressure 05:42:[address] [facility] Diastolic blood 2021-09-08 69 mm[Hg] University o f pressure 05:42:[address] [facility] Heart rate 2021-09-08 85 /min University of 05:42:[address] [facility] Respiratory rate 2021-09-08 17 /min University of 05:42:[address] [facility] Oxygen saturation 2021-09-08 98 /min University of in Arterial blood 05:42:00 [facility] by Pulse oximetry Branch Body temperature 2021-09-08 37.44 Tasia [place] of 01:22:[address] [facility] Body weight 2021-09-08 68 kg University of 01:22:[address] [facility] BMI 2021-09-08 19.78 kg/m2 University of 01:22:[address] [facility] Systolic blood 2021-09-06 123 mm[Hg] University of pressure 21:33:00 [facility] Diastolic blood 2021-09-06 65 mm[Hg] University o f pressure 21:33:00 [facility] Heart rate 2021-09-06 91 /min University of 21:33:[address] [facility] Body temperature 2021-09-06 36.39 Tasia University of 21:33:[address] [facility] Respiratory rate 2021-09-06 18 /min University of 21:33:[address] [facility] Body weight 2021-09-06 68.04 kg University of 21:33:[address] [facility] BMI 2021-09-06 19.79 kg/m2 University of 21:33:[address] [facility] Oxygen saturation 2021-09-06 100 /min University of in Arterial blood 21:33:00 [facility] mariusz by Pulse oximetry Branch Systolic blood 2021-09-05 99 mm[Hg] University of pressure 17:16:[address] [facility] Diastolic blood 2021-09-05 62 mm[Hg] University o f pressure 17:16:[address] [facility] Heart rate 2021-09-05 78 /min University of 17:16:[address] [facility] Body temperature 2021-09-05 36.39 Tasia University of 17:16:[address] [facility] Respiratory rate 2021-09-05 17 /min University of 17:16:[address] [facility] Oxygen saturation 2021-09-05 95 /min University of in Arterial blood 17:16:00 [facility] mariusz by Pulse oximetry Branch Body height 2021-08-31 185.4 cm University of 07:29:[address] [facility] Body weight 2021-08-31 68.04 kg University of 07:29:[address] [facility] BMI 2021-08-31 19.79 kg/m2 University of 07:29:[address] [facility] Systolic blood 2021-09-03 111 mm[Hg] University of pressure 15:59:[address] [facility] Diastolic blood 2021-09-03 65 mm[Hg] University o f pressure 15:59:[address] [facility] Heart rate 2021-09-03 75 /min University of 15:59:[address] [facility] Body temperature 2021-09-03 35.72 Tasia University of 15:59:[address] [facility] Respiratory rate 2021-09-03 18 /min University of 15:59:[address] [facility] Oxygen saturation 2021-09-03 100 /min University of in Arterial blood 15:59:00 [facility] by Pulse oximetry Branch Body height 2021-08-31 185.4 cm University of 07:29:[address] [facility] Body weight 2021-08-31 68.04 kg University of 07:29:[address] [facility] BMI 2021-08-31 19.79 kg/m2 University of 07:29:[address] [facility] Systolic blood 2021-08-29 111 mm[Hg] University of pressure 23:12:[address] [facility] Diastolic blood 2021-08-29 73 mm[Hg] University o f pressure 23:12:[address] [facility] Heart rate 2021-08-29 95 /min University of 23:12:[address] [facility] Body temperature 2021-08-29 37 Tasia University of 23:12:[address] [facility] Respiratory rate 2021-08-29 18 /min University of 23:12:[address] [facility] Body weight 2021-08-29 68.04 kg University of 23:12:[address] [facility] BMI 2021-08-29 19.79 kg/m2 University of 23:12:[address] [facility] Oxygen saturation 2021-08-29 99 /min [place] of in Arterial blood 23:12:00 [facility] by Pulse oximetry [place] Systolic blood 2021-08-05 92 mm[Hg] University of pressure 10:56:[address] [facility] Diastolic blood 2021-08-05 75 mm[Hg] University o f pressure 10:56:[address] [facility] Heart rate 2021-08-05 67 /min University of 10:56:[address] [facility] Body temperature 2021-08-05 36.22 Tasia University of 10:56:[address] [facility] Oxygen saturation 2021-08-05 93 /min University of in Arterial blood 10:56:00 [facility] by Pulse oximetry Branch Respiratory rate 2021-08-05 16 /min University 06:24:[address] [facility] Body height 2021-07-30 185.4 cm University of 09:49:[address] [facility] Body weight 2021-07-30 65.772 kg University of 09:49:[address] [facility] BMI 2021-07-30 19.13 kg/m2 University of 09:49:[address] [facility] Systolic blood 2021-07-26 107 mm[Hg] University of pressure 17:32:00 [facility] Diastolic blood 2021-07-26 69 mm[Hg] University o f pressure 17:32:00 [facility] Heart rate 2021-07-26 70 /min University of 17:32:[address] [facility] Body temperature 2021-07-26 36.39 Tasia University of 17:32:[address] [facility] Respiratory rate 2021-07-26 16 /min University of 17:32:[address] [facility] Oxygen saturation 2021-07-26 96 /min University of in Arterial blood 17:32:00 [facility] mariusz by Pulse oximetry Branch Body height 2021-07-23 185.4 cm University of 08:40:[address] [facility] Body weight 2021-07-23 84.5 kg University of 08:40:[address] [facility] BMI 2021-07-23 24.58 kg/m2 University of 08:40:[address] [facility] Systolic blood 2021-06-04 95 mm[Hg] University of pressure 16:20:[address] [facility] Diastolic blood 2021-06-04 60 mm[Hg] University o f pressure 16:20:[address] [facility] Heart rate 2021-06-04 61 /min University of 16:20:[address] [facility] Body temperature 2021-06-04 36.17 Tasia University of 16:20:[address] [facility] Respiratory rate 2021-06-04 18 /min University of 16:20:[address] [facility] Oxygen saturation 2021-06-04 100 /min University of in Arterial blood 16:20:00 [facility] mariusz by Pulse oximetry Branch Body weight 2021-06-01 65.772 kg University of 19:00:[address] [facility] BMI 2021-06-01 19.13 kg/m2 University of 19:00:[address] [facility] Body height 2021-05-31 185.4 cm University of 22:12:[address] [facility] Systolic blood 2021-05-21 101 mm[Hg] University of pressure 20:21:[address] [facility] Diastolic blood 2021-05-21 68 mm[Hg] University o f pressure 20:21:[address] [facility] Heart rate 2021-05-21 74 /min University of 20:21:[address] [facility] Body temperature 2021-05-21 36.56 Tasia University of 20:21:[address] [facility] Respiratory rate 2021-05-21 18 /min University of 20:21:[address] [facility] Oxygen saturation 2021-05-21 99 /min University of in Arterial blood 20:21:00 [facility] by Pulse oximetry Branch Body height 2021-05-21 185.4 cm University of 00:15:[address] [facility] Body weight 2021-05-21 65.772 kg University of 00:15:[address] [facility] BMI 2021-05-21 19.13 kg/m2 University of 00:15:[address] [facility] Systolic blood 2021-05-09 101 mm[Hg] University of pressure 16:32:[address] [facility] Diastolic blood 2021-05-09 70 mm[Hg] University o f pressure 16:32:[address] [facility] Heart rate 2021-05-09 69 /min University of 16:32:[address] [facility] Body temperature 2021-05-09 36.72 Tasia University of 16:32:[address] [facility] Respiratory rate 2021-05-09 16 /min University of 16:32:[address] [facility] Oxygen saturation 2021-05-09 99 /min University of in Arterial blood 16:32:00 [facility] by Pulse oximetry Branch Body height 2021-05-08 185.4 cm University of 05:48:[address] [facility] Body weight 2021-05-08 80.196 kg University of 05:48:[address] [facility] BMI 2021-05-08 23.33 kg/m2 University of 05:48:[address] [facility] Heart rate 2020-09-27 89 /min University of 04:25:[address] [facility] Respiratory rate 2020-09-27 20 /min University of 04:25:[address] [facility] Oxygen saturation 2020-09-27 99 /min University of in Arterial blood 04:25:00 [facility] by Pulse oximetry Branch Systolic blood 2020-09-27 103 mm[Hg] University of pressure 04:02:[address] [facility] Diastolic blood 2020-09-27 78 mm[Hg] University o f pressure 04:02:[address] [facility] Body temperature 2020-09-27 36.72 Tasia University of 04:00:[address] [facility] Body weight 2020-09-26 79.379 kg University of 22:35:[address] [facility] BMI 2020-09-26 23.09 kg/m2 University of 22:35:[address] [facility] Systolic blood 2020-08-24 105 mm[Hg] University of pressure 17:24:[address] [facility] Diastolic blood 2020-08-24 64 mm[Hg] University o f pressure 17:24:[address] [facility] Heart rate 2020-08-24 83 /min University of 17:24:[address] [facility] Body temperature 2020-08-24 36.56 Tasia University of 17:24:[address] [facility] Respiratory rate 2020-08-24 16 /min University of 17:24:[address] [facility] Oxygen saturation 2020-08-24 98 /min University of in Arterial blood 17:24:00 [facility] by Pulse oximetry Branch Body height 2020-08-23 185.4 cm [facility] 03:19:[address] [facility] Body weight 2020-08-23 79.379 kg [facility] 03:19:[address] [facility] BMI 2020-08-23 23.09 kg/m2 University 03:19:[address] [facility] Systolic blood 2020-07-10 126 mm[Hg] University of pressure :32:[address] [facility] Diastolic blood 2020-07-10 67 mm[Hg] University o f pressure :32:[address] [facility] Heart rate 2020-07-10 92 /min University of :32:[address] [facility] Body temperature 2020-07-10 37.17 Tasia University of :32:[address] [facility] Respiratory rate 2020-07-10 16 /min University of :32:[address] [facility] Oxygen saturation 2020-07-10 100 /min [place] of in Arterial blood :32:00 [facility] by Pulse oximetry Branch Body height 2020-07-09 154.9 cm University of ::[address] [facility] Body weight 2020-07-09 68.04 kg University of ::[address] [facility] BMI 2020-07-09 28.34 kg/m2 University of :23:[address] [facility] Systolic blood 2020-06-05 106 mm[Hg] University of pressure 15:00:[address] [facility] Diastolic blood 2020-06-05 72 mm[Hg] University o f pressure 15:00:[address] [facility] Heart rate 2020-06-05 84 /min University of 15:00:[address] [facility] Respiratory rate 2020-06-05 18 /min University of 15:00:00 [facility] Oxygen saturation 2020-06-05 100 /min University of in Arterial blood 15:00:00 [facility] mariusz by Pulse oximetry Branch Body temperature 2020-06-05 36.61 Tasia University of 14:54:[address] [facility] Body weight 2020-06-05 65.772 kg University of 11:48:00 [facility] BMI 2020-06-05 19.13 kg/m2 University of 11:48:00 [facility] Systolic blood 2020-06-04 130 mm[Hg] University of pressure 18:30:00 [facility] Diastolic blood 2020-06-04 84 mm[Hg] University o f pressure 18:30:00 [facility] Heart rate 2020-06-04 72 /min University of 18:30:[address] [facility] Body temperature 2020-06-04 36.72 Tasia University of 18:30:[address] [facility] Respiratory rate 2020-06-04 16 /min University of 18:30:[address] [facility] Oxygen saturation 2020-06-04 98 /min University of in Arterial blood 18:30:00 [facility] by Pulse oximetry Branch Systolic blood 2020-05-31 90 mm[Hg] University of pressure 19:59:00 [place] [facility] Diastolic blood 2020-05-31 59 mm[Hg] University o f pressure 19:59:[address] [facility] Heart rate 2020-05-31 88 /min University of 19:59:[address] [facility] Body temperature 2020-05-31 36.78 Tasia University of 19:59:[address] [facility] Respiratory rate 2020-05-31 16 /min University of 19:59:00 [facility] Oxygen saturation 2020-05-31 98 /min University of in Arterial blood 19:59:00 [facility] by Pulse oximetry Branch Body height 2020-05-30 185.4 cm University of 18:29:[address] [facility] Body weight 2020-05-30 69.5 kg weighed in bed University of 18:29:[address] [facility] BMI 2020-05-30 20.21 kg/m2 University of 18:29:[address] [facility] Systolic blood 2020-05-22 100 mm[Hg] University of pressure 04:38:00 [facility] Diastolic blood 2020-05-22 71 mm[Hg] University o f pressure 04:38:00 [facility] Heart rate 2020-05-22 90 /min University of 04:38:00 [place] [facility] Respiratory rate 2020-05-22 18 /min University of 04:38:00 [facility] Oxygen saturation 2020-05-22 97 /min University of in Arterial blood 04:38:00 [place] [facility] by Pulse oximetry [facility] Body temperature 2020-05-22 36.83 Tasia University of 02:02:11 [facility] [place] [facility] Body height 2020-05-22 185.4 cm University of 01:59:00 [facility] [place] [facility] Body weight 2020-05-22 65.772 kg University of 01:59:00 [facility] BMI 2020-05-22 19.13 kg/m2 University of 01:59:00 [facility] Systolic blood 2020-05-20 95 mm[Hg] University of pressure 18:33:34 [facility] [place] [facility] Diastolic blood 2020-05-20 62 mm[Hg] University o f pressure 18:33:34 [facility] [place] [facility] Heart rate 2020-05-20 86 /min University of 18:33:34 [facility] Respiratory rate 2020-05-20 20 /min University of 18:33:34 [facility] Oxygen saturation 2020-05-20 98 /min University of in Arterial blood 18:33:34 [place] [facility] by Pulse oximetry Branch Body temperature 2020-05-20 37 Tasia University of 12:02:[address] [facility] Body weight 2020-05-20 65.8 kg University of 12:02:[address] [facility] BMI 2020-05-20 19.14 kg/m2 University of 12:02:00 [facility] Branch Systolic blood 2020-05-20 101 mm[Hg] University of pressure 10:58:00 [facility] Diastolic blood 2020-05-20 56 mm[Hg] University o f pressure 10:58:00 [facility] [place] [facility] Heart rate 2020-05-20 79 /min University of 10:58:00 [facility] Branch Body temperature 2020-05-20 37 Tasia University of 10:58:00 [facility] Branch Respiratory rate 2020-05-20 16 /min University of 10:58:00 [facility] Branch Oxygen saturation 2020-05-20 99 /min University of in Arterial blood 10:58:00 [place] [facility] by Pulse oximetry Branch Body height 2020-05-20 185.4 cm University of 02:36:00 [facility] Body weight 2020-05-20 65.772 kg University of 02:36:[address] [facility] BMI 2020-05-20 19.13 kg/m2 University of 02:36:[address] [facility] Systolic blood 2020-05-12 93 mm[Hg] University of pressure 17:02:[address] [facility] Diastolic blood 2020-05-12 61 mm[Hg] University o f pressure 17:02:[address] [facility] Body temperature 2020-05-12 37.06 Tasia University of 17:02:[address] [facility] Heart rate 2020-05-12 74 /min University of 09:00:[address] [facility] Respiratory rate 2020-05-12 18 /min University of 09:00:[address] [facility] Oxygen saturation 2020-05-12 95 /min [facility] in Arterial blood 09:00:00 [facility] by Pulse oximetry [place] Body height 2020-05-05 185.4 cm University of 09:05:[address] [facility] Body weight 2020-05-05 65.772 kg University of 09:05:[address] [facility] BMI 2020-05-05 19.13 kg/m2 University of 09:05:[address] [facility] Systolic blood 2020-05-03 107 mm[Hg] University of pressure 04:30:[address] [facility] Diastolic blood 2020-05-03 62 mm[Hg] University o f pressure 04:30:[address] [facility] Heart rate 2020-05-03 105 /min University of 04:30:[address] [facility] Body temperature 2020-05-03 37.22 Tasia University of 04:30:[address] [facility] Respiratory rate 2020-05-03 14 /min University of 04:30:[address] [facility] Body height 2020-05-03 185.4 cm University of 04:30:[address] [facility] Body weight 2020-05-03 65.772 kg University of 04:30:[address] [facility] BMI 2020-05-03 19.13 kg/m2 University of 04:30:[address] [facility] Systolic blood 2020-05-02 105 mm[Hg] University of pressure 12:46:[address] [facility] Diastolic blood 2020-05-02 57 mm[Hg] University o f pressure 12:46:[address] [facility] Heart rate 2020-05-02 79 /min University of 12:46:[address] [facility] Body temperature 2020-05-02 36.28 Tasia [facility] of 12:46:[address] [facility] Respiratory rate 2020-05-02 16 /min University of 12:46:[address] [facility] Oxygen saturation 2020-05-02 98 /min University of in Arterial blood 12:46:00 [facility] mariusz by Pulse oximetry Branch Body height 2020-04-16 185.4 cm University of 20:11:[address] [facility] Body weight 2020-04-16 79.379 kg University of 20:11:[address] [facility] BMI 2020-04-16 23.09 kg/m2 University of 20:11:[address] [facility] Respiratory rate 2020-04-06 12 /min University of 16:20:[address] [facility] Systolic blood 2020-03-28 125 mm[Hg] University of pressure 16:00:[address] [facility] Diastolic blood 2020-03-28 87 mm[Hg] University o f pressure 16:00:[address] [facility] Heart rate 2020-03-28 74 /min University of 16:00:[address] [facility] Body temperature 2020-03-28 36.44 Tasia University of 16:00:[address] [facility] Respiratory rate 2020-03-28 18 /min University of 16:00:[address] [facility] Oxygen saturation 2020-03-28 100 /min University of in Arterial blood 16:00:00 [facility] mariusz by Pulse oximetry Branch Body height 2020-03-26 185.4 cm University of 03:49:[address] [facility] Body weight 2020-03-26 74.844 kg University of 03:49:[address] [facility] BMI 2020-03-26 21.77 kg/m2 University of 03:49:[address] [facility] Systolic blood 2020-03-05 107 mm[Hg] University of pressure 16:00:00 [facility] Branch Diastolic blood 2020-03-05 67 mm[Hg] University o f pressure 16:00:[address] [facility] Heart rate 2020-03-05 56 /min University of 16:00:[address] [facility] Body temperature 2020-03-05 36.5 Tasia University of 16:00:[address] [facility] Respiratory rate 2020-03-05 18 /min University of 16:00:[address] [facility] Oxygen saturation 2020-03-05 100 /min University of in Arterial blood 16:00:00 [facility] mariusz by Pulse oximetry Branch Body height 2020-03-03 185.4 cm University of 05:49:[address] [facility] Body weight 2020-03-03 71.668 kg University of 05:49:[address] [facility] BMI 2020-03-03 20.85 kg/m2 University of 05:49:[address] [facility] Systolic blood 2020-02-27 100 mm[Hg] University of pressure 21:12:[address] [facility] Diastolic blood 2020-02-27 74 mm[Hg] University o f pressure 21:12:[address] [facility] Heart rate 2020-02-27 90 /min University of 21:12:[address] [facility] Body temperature 2020-02-27 35.78 Tasia [facility] of 21:12:[address] [facility] Respiratory rate 2020-02-27 19 /min University of 21:12:[address] [facility] Oxygen saturation 2020-02-27 99 /min University of in Arterial blood 21:12:00 [facility] by Pulse oximetry Branch Body weight 2020-02-26 71.215 kg University of 23:05:[address] [facility] BMI 2020-02-26 20.71 kg/m2 University of 23:05:[address] [facility] Systolic blood 2020-02-26 132 mm[Hg] University of pressure 07:43:[address] [facility] Diastolic blood 2020-02-26 71 mm[Hg] University o f pressure 07:43:[address] [facility] Heart rate 2020-02-26 82 /min University of 07:43:[address] [facility] Respiratory rate 2020-02-26 18 /min University of 07:43:[address] [facility] Oxygen saturation 2020-02-26 100 /min University of in Arterial blood 07:43:00 [facility] by Pulse oximetry [place] Body temperature 2020-02-26 36.94 Tasia University of 04:57:[address] [facility] Body height 2020-02-26 185.4 cm University of 02:30:[address] [facility] Body weight 2020-02-26 68.04 kg University of 02:30:[address] [facility] BMI 2020-02-26 19.79 kg/m2 University of 02:30:[address] [facility] Systolic blood 2020-02-05 100 mm[Hg] University of pressure 16:00:[address] [facility] Diastolic blood 2020-02-05 61 mm[Hg] University o f pressure 16:00:[address] [facility] Heart rate 2020-02-05 60 /min University of 16:00:[address] [facility] Body temperature 2020-02-05 36.67 Tasia [facility] of 16:00:[address] [facility] Respiratory rate 2020-02-05 17 /min University of 16:00:[address] [facility] Oxygen saturation 2020-02-05 98 /min University of in Arterial blood 16:00:00 [facility] by Pulse oximetry Branch Body height 2020-01-28 185.4 cm University of 23:13:[address] [facility] Body weight 2020-01-28 68.04 kg University of 23:13:[address] [facility] BMI 2020-01-28 19.79 kg/m2 University of 23:13:[address] [facility] Systolic blood 2020-02-05 100 mm[Hg] University of pressure 16:00:[address] [facility] Diastolic blood 2020-02-05 61 mm[Hg] University o f pressure 16:00:[address] [facility] Heart rate 2020-02-05 60 /min University of 16:00:[address] [facility] Body temperature 2020-02-05 36.67 Tasia University of 16:00:[address] [facility] Respiratory rate 2020-02-05 17 /min University of 16:00:[address] [facility] Oxygen saturation 2020-02-05 98 /min University of in Arterial blood 16:00:00 [facility] by Pulse oximetry Branch Body height 2020-01-28 185.4 cm University of 23:13:[address] [facility] Body weight 2020-01-28 68.04 kg University of 23:13:[address] [facility] BMI 2020-01-28 19.79 kg/m2 University of 23:13:[address] [facility] Systolic blood 2020-01-27 114 mm[Hg] University of pressure 00:32:[address] [facility] Diastolic blood 2020-01-27 66 mm[Hg] University o f pressure 00:32:[address] [facility] Heart rate 2020-01-27 73 /min University of 00:32:[address] [facility] Body temperature 2020-01-27 36.67 Tasia University of 00:32:[address] [facility] Respiratory rate 2020-01-27 18 /min University of 00:32:[address] [facility] Oxygen saturation 2020-01-27 97 /min University of in Arterial blood 00:32:00 [facility] by Pulse oximetry Branch Body height 2020-01-24 185.4 cm University of 23:55:[address] [facility] Body weight 2020-01-24 68.04 kg University of 23:55:[address] [facility] BMI 2020-01-24 19.79 kg/m2 University of 23:55:00 [place] [facility] Systolic blood 2020-01-27 114 mm[Hg] University of pressure 00:32:00 [facility] Diastolic blood 2020-01-27 66 mm[Hg] University o f pressure 00:32:00 [facility] Heart rate 2020-01-27 73 /min University of 00:32:00 [facility] Body temperature 2020-01-27 36.67 Tasia University of 00:32:00 [facility] [place] [facility] Respiratory rate 2020-01-27 18 /min University of 00:32:00 [facility] [place] [facility] Oxygen saturation 2020-01-27 97 /min University of in Arterial blood 00:32:00 [facility] mariusz by Pulse oximetry Branch Body height 2020-01-24 185.4 cm University of :55:[address] [facility] Body weight 2020-01-24 68.04 kg University of :55:[address] [facility] BMI 2020-01-24 19.79 kg/m2 University of 23:55:[address] [facility] Body temperature 2019-12-13 36.72 Tasia [place] of 02:56:[address] [facility] Systolic blood 2019-12-13 114 mm[Hg] University of pressure 01:57:[address] [facility] Diastolic blood 2019-12-13 77 mm[Hg] University o f pressure 01:57:[address] [facility] Heart rate 2019-12-13 75 /min University of 01:57:00 [facility] Branch Respiratory rate 2019-12-13 20 /min University of 01:57:[address] [facility] Body height 2019-12-13 185.4 cm University of 01:57:[address] [facility] Body weight 2019-12-13 68.04 kg University of :57:[address] [facility] BMI 2019-12-13 19.79 kg/m2 University of 01:57:[address] [facility] Oxygen saturation 2019-12-13 97 /min University of in Arterial blood 01:57:00 [place] [facility] by Pulse oximetry Branch Body temperature 2019-12-13 36.72 Tasia [place] of 02:56:16 [facility] Branch Systolic blood 2019-12-13 114 mm[Hg] University of pressure 01:57:[address] [facility] Diastolic blood 2019-12-13 77 mm[Hg] University o f pressure 01:57:[address] [facility] Heart rate 2019-12-13 75 /min University of 01:57:[address] [facility] Respiratory rate 2019-12-13 20 /min [facility] :57:[address] [facility] Body height 2019-12-13 185.4 cm [facility] :57:[address] [facility] Body weight 2019-12-13 68.04 kg [facility] :57:[address] [facility] BMI 2019-12-13 19.79 kg/m2 [facility] 01:57:[address] [facility] Oxygen saturation 2019-12-13 97 /min [facility] in Arterial blood 01:57:00 [facility] by Pulse oximetry [place] Systolic blood 2022-03-13 94 mm[Hg] [facility] pressure 15:33:00 Diastolic blood 2022-03-13 62 mm[Hg] [facility] h pressure 15:33:00 Heart rate 2022-03-13 109 /min [facility] 15:33:00 Body temperature 2022-03-13 36.67 Tasia [facility] th 15:33:00 Respiratory rate 2022-03-13 20 /min [facility] th 15:33:00 Body height 2022-03-13 185.4 cm [facility] 15:33:00 Body weight 2022-03-13 66.679 kg [facility] 15:33:00 BMI 2022-03-13 19.39 kg/m2 [facility] 15:33:00 Oxygen saturation 2022-03-13 100 /min [facility] in Arterial blood 15:33:00 by Pulse oximetry Systolic blood 2022-03-09 107 mm[Hg] [facility] pressure 11:00:00 [facility] Diastolic blood 2022-03-09 66 mm[Hg] [facility] pressure 11:00:00 [facility] Heart rate 2022-03-09 58 /min [facility] 11:00:00 [facility] Body temperature 2022-03-[address] [facility] 11:[facility]:00 [facility] Respiratory rate 2022-03-09 16 /min [facility] 11:00:00 [facility] Oxygen saturation 2022-03-09 100 /min [facility] in Arterial blood 11:00:00 [facility] nter by Pulse oximetry Body height 2022-03-[address] [facility] 12:05:00 [facility] Body weight 2022-03-[address] [facility] 12:05:00 [facility] BMI 2022-03-06 19.13 kg/m2 [facility] 12:05:00 [facility] Procedures Procedure Date / Time Performing Clinician Source Performed COMP. METABOLIC PANEL 2022-04-10 03:54:00 Alvarez [facility] ([id number]) [facility] CBC WITH DIFF 2022-04-10 03:49:00 Alvarez [facility] LIPASE 2022-04-10 03:07:00 Alvarez [facility] XR CHEST 2 VW 2022-04-10 02:59:18 [facility] COVID-19 (ID NOW RAPID 2022-04-10 02:43:00 Alvarez Austin [facility] TESTING) Medical Branch PHOSPHORUS 2022-04-08 10:26:00 Kurt [facility] MAGNESIUM 2022-04-08 10:26:00 Kurt [facility] BASIC METABOLIC PANEL (NA, 2022-04-08 10:26:00 [facility], CO2, GLUCOSE, BUN, Medica l Branch CREATININE, CA) CBC WITH DIFF 2022-04-08 10:26:00 Kurt [facility] PHOSPHORUS 2022-04-07 09:45:00 Marcela [facility] MAGNESIUM 2022-04-07 09:45:00 Marcela [facility] BASIC METABOLIC PANEL (NA, 2022-04-07 09:45:00 Don Medrano [facility] K, CL, CO2, GLUCOSE, BUN, Medica l Branch CREATININE, CA) LACTIC ACID WHOLE BLOOD 2022-04-06 09:05:00 Rolf Lemus [facility] MAGNESIUM 2022-04-06 09:04:00 Kurt [facility] BASIC METABOLIC PANEL (NA, 2022-04-06 09:04:00 Rolf Lemus [facility] K, CL, CO2, GLUCOSE, BUN, Medica l Branch CREATININE, CA) CBC WITH DIFF 2022-04-06 09:04:00 Rolf Lemus [facility] BASIC METABOLIC PANEL (NA, 2022-04-05 08:12:00 Agatha Noonan [facility] K, CL, CO2, GLUCOSE, BUN, Medica l Branch CREATININE, CA) ACUTE CARE VENOUS BLOOD 2022-04-05 08:12:00 Octavio Macario [facility] CBC WITH DIFF 2022-04-05 08:12:00 Agatha Noonan [facility] BASIC METABOLIC PANEL (NA, 2022-04-04 09:03:00 Rolf Lemus [facility] K, CL, CO2, GLUCOSE, BUN, Medica l Branch CREATININE, CA) RETROPERITONEAL LIMITED 2022-04-03 23:10:49 Octavio Macario [facility] ACUTE CARE VENOUS BLOOD 2022-04-03 18:33:00 Octavio Macario [facility] OSMOLALITY URINE 2022-04-03 17:59:00 Amirah [facility] BASIC METABOLIC PANEL (NA, 2022-04-03 17:59:00 Octavio Macario [facility] K, CL, CO2, GLUCOSE, BUN, Medica l Branch CREATININE, CA) CREATININE, URINE RANDOM 2022-04-03 17:59:00 Octavio Macario [facility] POTASSIUM, URINE RANDOM 2022-04-03 17:59:00 Octavio Macario [facility] SODIUM, URINE RANDOM 2022-04-03 17:59:00 Octavio Macario [facility] MAGNESIUM 2022-04-03 09:29:00 Octavio Macario [facility] OSMOLALITY, SERUM OR 2022-04-03 09:29:00 Octavio Macario [facility] BASIC METABOLIC PANEL (NA, 2022-04-03 09:29:00 Juventino Thomas [facility] K, CL, CO2, GLUCOSE, BUN, Medica l Branch CREATININE, CA) CBC WITH DIFF 2022-04-03 09:29:00 [place], [facility] CLOSTRIDIUM DIFFICILE 2022-04-03 03:44:00 William [facility] TOXIN [facility] LACTIC ACID WHOLE BLOOD 2022-04-03 03:38:00 William [facility] LACTIC ACID WHOLE BLOOD 2022-04-03 00:07:00 William [facility] URINE CULTURE 2022-04-02 22:39:[address] [facility] CT ABDOMEN PELVIS WO 2022-04-02 21:07:00 Rekha Sheehan [facility] CONTRAST [facility] Branch LIPASE 2022-04-02 20:00:00 Aguila [facility] TROPONIN I 2022-04-02 20:00:00 Aguila [facility] HEPATIC FUNCTION PANEL 2022-04-02 20:00:00 Aguila [facility] ([id number]) (ALB,T.PRO,BILI Medical Branch T,BU/BC,ALT,AST,ALK PHOS) BASIC METABOLIC PANEL (NA, 2022-04-02 20:00:00 Rekha Sheehan [facility] K, CL, CO2, GLUCOSE, BUN, Medica l Branch CREATININE, CA) URINALYSIS 2022-04-02 20:00:00 Aguila [facility] CBC WITH DIFF 2022-04-02 18:20:00 Aguila [facility] COVID-19 (ID NOW RAPID 2022-04-02 18:20:00 [facility] LAB ONLY COVID 2022-04-02 18:20:00 Aguila [facility] INTERPRETATION [facility] XR CHEST 2 VW 2022-04-02 17:29:13 Aguila [facility] HB ECG ROUTINE & RHYTHM 2022-04-02 16:32:43 Rekha Sheehan [facility] STRIP [facility] CONSENT/REFUSAL FOR 2022-04-02 16:29:46 Doctor Unassigned, [facility] DIAGNOSIS AND TREATMENT [place] [facility] BASIC METABOLIC PANEL (7) 2022-03-07 05:51:00 Romie Kuo [facility] HEPATIC FUNCTION PANEL 2022-03-07 05:51:00 Eduar KuomirnaAcacia [facility] CBC W/PLT COUNT & AUTO 2022-03-07 05:51:00 Shiela EduarJhony [facility] Center CBC W/PLT COUNT & AUTO 2022-03-07 05:51:00 Eduar KuoAcacia [facility] DIFFERENTIAL [place] US RENAL COMPLETE 2022-03-06 18:23:00 Eduar KuomirnaAcacia [facility] SARS-COV2/RT-PCR (HS & 2022-03-06 17:36:00 [facility] REF LABS) Center TSH/FREE T4 IF INDICATED 2022-03-06 14:18:00 Aryan Tello [facility] T4, FREE 2022-03-06 14:18:00 Aryan Tello [facility] ED ECG INTERPRETATION 2022-03-06 13:48:12 Aryan Tello [facility] XR CHEST 1 VIEW PORTABLE / 2022-03-06 13:42:00 Aryan Tello [facility] BEDSIDE [facility] B-TYPE NATRIURETIC FACTOR 2022-03-06 13:23:00 Aryan Tello [facility] (BNP) [facility] CBC W/PLT COUNT & AUTO 2022-03-06 13:23:00 Aryan Tello [facility] DIFFERENTIAL [facility] COMPREHENSIVE METABOLIC 2022-03-06 13:23:00 Aryan Tello [facility] PANEL [facility] HIGH SENSITIVITY TROPONIN 2022-03-06 13:23:00 Aryan Tello [facility] MAGNESIUM 2022-03-06 13:23:00 Aryan Tello [facility] PHOSPHORUS 2022-03-06 13:23:00 Aryan Tello [facility] LACTIC ACID, VENOUS 2022-03-06 13:23:00 Aryan Tello [facility] CREATINE KINASE (CK) 2022-03-06 13:23:00 Aryan Tello [facility] CBC W/PLT COUNT & AUTO 2022-03-06 13:23:00 Aryan Tello [facility] DIFFERENTIAL [facility] ECG 12-LEAD 2022-03-06 12:12:56 Unknown, Hl7 Doctor [facility] ECG 12-LEAD 2022-03-06 12:12:56 Unknown, Hl7 [facility] ECG 12-LEAD 2022-03-06 12:12:56 Unknown, Hl7 [facility] EKG-SCANNED 2022-03-06 00:00:00 Provider [facility] CBC (WITHOUT DIFFERENTIAL) 2022-02-20 05:10:00 Rufino Lazaro [facility] BASIC METABOLIC PANEL 2022-02-20 05:10:00 Rufino Lazaro Health MAGNESIUM 2022-02-20 05:10:00 Rufino Lazaro PHOSPHORUS 2022-02-20 05:10:00 Rufino Lazaro INFUSION PUMP 2022-02-19 19:03:50 Rufino Lazaro COMPREHENSIVE METABOLIC 2022-02-19 06:35:00 Fannie Blake [facility] Health PANEL CBC/DIFF 2022-02-19 06:35:00 Fannie Blake alth PHOSPHORUS 2022-02-19 06:35:00 Fannie Blake alth CBC 2022-02-19 06:35:00 Fannie Blake alth URINALYSIS W/REFLEX TO 2022-02-19 00:34:00 Fannie Blake [facility] URINE CULTURE URINALYSIS 2022-02-19 00:34:00 Chadd Palacios URINE CULTURE COLLECTION 2022-02-19 00:34:00 Chadd Palacios [facility] KIT SARS-COV-2, FLU A/B, RSV 2022-02-18 19:00:00 Chadd Palacios [facility] CORONAVIRUS, COVID-19, OLENA 2022-02-18 19:00:00 Philip Chadd Located within [facility] XRAY CHEST 1 VIEW 2022-02-18 15:23:00 Roz Scales [facility] CONSULT CLINICAL CASE 2022-02-18 14:50:50 Yordy Roz Damon [facility] MANAGEMENT (RN/SW) CBC/DIFF 2022-02-18 14:16:00 Albab, [facility] BASIC METABOLIC PANEL 2022-02-18 14:16:00 Albab, [facility] MAGNESIUM 2022-02-18 14:16:00 Albab, [facility] PHOSPHORUS 2022-02-18 14:16:00 Albab, [facility] CREATINE KINASE (CK) 2022-02-18 14:16:00 Albab, [facility] CBC 2022-02-18 14:16:00 [facility] BASIC METABOLIC PANEL 2022-02-11 03:34:00 Antonieta [facility] MAGNESIUM 2022-02-11 03:34:00 Cucfrederic [facility] th PHOSPHORUS 2022-02-11 03:34:00 [facility] CBC (WITHOUT DIFFERENTIAL) 2022-02-11 03:34[facility] CBC/DIFF 2022-02-10 03:39:00 [facility] MET[facility]OLIC PANEL 2022-02-10 03:39:00 Antonieta [facility] CBC 2022-02-10 03:39:00 [facility] TH[facility]IM[facility] 2022-02-10 03:39:00 [facility] HORMONE (TSH) FREE T4 2022-02-10 03:39:00 Jamilahfrederic [facility] th CBC/DIFF 2022-02-09 04:38:00 [facility]OL[facility] PANEL 2022-02-09 04:38:00 Antonieta [facility] CBC 2022-02-09 04:38:00 [facility] CORTISOL, TOTAL 2022-02-08 11:37:00 [facility] GLUCOSE POC 2022-02-08 08:07:00 [facility] CBC (WITHOUT DIFFERENTIAL) 2022-02-08 04:00:00 Jian Schmitt [facility] COMPREHENSIVE METABOLIC 2022-02-08 04:00:00 Jian Schmitt [facility] PANEL PHOSPHORUS 2022-02-08 04:00:00 Jian Schmitt [facility] MAGNESIUM 2022-02-08 04:00:00 Jian Schmitt [facility] PT/INR 2022-02-08 04:00:00 Jian Schmitt [facility] URINALYSIS W/REFLEX TO 2022-02-07 18:06:00 Areli Arciniega [facility] URINE CULTURE URINALYSIS 2022-02-07 18:06:00 Areli Arciniega alth URINE CULTURE COLLECTION 2022-02-07 18:06:00 Areli Arciniega [facility] KIT ELECTROLYTES, URINE 2022-02-07 18:06:00 Jyoti Carrillo [facility] OSMOLALITY, URINE 2022-02-07 18:06:00 Jyoti Carrillo [facility] SARS-COV-2, FLU A/B, RSV 2022-02-07 18:05:00 Jyoti Carrillo [facility] CORONAVIRUS, COVID-19, OLENA 2022-02-07 18:05:00 Joyti Carrillo [facility] NUTRITION CONSULT 2022-02-07 17:43:36 Jian Schmitt [facility] BASIC METABOLIC PANEL 2022-02-07 17:18:00 Jyoti Carrillo [facility] LACTIC ACID 2022-02-07 14:04:00 Areli Arciniega alth CBC/DIFF 2022-02-07 14:03:00 Areli Arciniega alth BASIC METABOLIC PANEL 2022-02-07 14:03:00 Areli Arciniega [facility] LIVER PROFILE 2022-02-07 14:03:00 Areli Arciniega alth LIPASE 2022-02-07 14:03:00 Areli Arciniega Lynne Misael alth MAGNESIUM 2022-02-07 14:03:00 Areli Arciniega Lynne Misael alth PHOSPHORUS 2022-02-07 14:03:00 Areli Arciniega alth TROPONIN I 2022-02-07 14:03:00 Areli Arciniega alth CBC 2022-02-07 14:03:00 Areli Arciniega alth 12 LEAD EKG 2022-01-21 15:46:10 Ori Goldberg [facility] h CBC/DIFF 2022-01-21 04:11:00 LindseyNoeh P [facility] MAGNESIUM 2022-01-21 04:11:00 Lindsey Tien P [facility] PHOSPHORUS 2022-01-21 04:11:00 Lindsey Tien P [facility] BASIC METABOLIC PANEL 2022-01-21 04:11:00 Ori Goldberg [facility] CBC 2022-01-21 04:11:00 LindseyTien [facility] CBC/DIFF 2022-01-20 04:37:00 LindseyNoeh P [facility] MAGNESIUM 2022-01-20 04:37:00 Lindsey Tien P [facility] PHOSPHORUS 2022-01-20 04:37:00 Lindsey, Tien P [facility] BASIC METABOLIC PANEL 2022-01-20 04:37:00 LindseyTien P [facility] CBC 2022-01-20 04:37:00 LindseyNoeh P [facility] MAGNESIUM 2022-01-19 18:09:00 Lindsey Tien P [facility] PHOSPHORUS 2022-01-19 18:09:00 Lindsey, Tien P [facility] BASIC METABOLIC PANEL 2022-01-19 18:09:00 Lindsey, [facility] CORTISOL, TOTAL 2022-01-19 18:09:00 Karin Bassett [facility] URINALYSIS W/REFLEX TO 2022-01-19 17:22:00 LindseyTien P [facility] URINE CULTURE URINALYSIS 2022-01-19 17:22:00 [facility] URINE CULTURE COLLECTION 2022-01-19 17:22:00 Lindsey Tien P [facility] KIT COMPUTED TOMOGRAPHY 2022-01-19 13:29:00 Tien Lucas [facility] ABDOMEN AND PELVIS WITHOUT CONTRAST CBC/DIFF 2022-01-19 04:44:00 Tien Lucas [facility] CBC 2022-01-19 04:44:00 Noe Lucash Esther [facility] DIFFERENTIAL, MANUAL (NO 2022-01-19 04:44:00 Lindsey Tien P [facility] Health MORPHOLOGY)-[facility] BASIC METABOLIC PANEL 2022-01-18 17:15:00 [facility] CBC/DIFF 2022-01-18 04:46:00 Tien Lucas [facility] MAGNESIUM 2022-01-18 04:46:00 Tien Lucas [facility] th PHOSPHORUS 2022-01-18 04:46:00 Tien Lucas [facility] BASIC METABOLIC PANEL 2022-01-18 04:46:00 Ori Goldberg [facility] CBC 2022-01-18 04:46:00 Noe Lucash Esther [facility] HIV AG/AB COMBO ROUTINE 2022-01-18 04:46:00 Karin Bassett [facility] SCREENING ENTERIC PATHOGENS NUCLEIC 2022-01-18 03:25:00 Karin Bassett [facility] ACID TEST BASIC METABOLIC PANEL 2022-01-18 00:29:00 Ori Goldberg [facility] BASIC METABOLIC PANEL 2022-01-17 17:07:00 [facility] BASIC METABOLIC PANEL 2022-01-17 13:15:00 [facility] CALPROTECTIN FECAL 2022-01-17 12:38:00 Tien Lucas ealth FECAL LEUKOCYTES 2022-01-17 12:38:[address] [facility] T-TRANSGLUTAMINASE IGA 2022-01-17 12:22:00 [facility] BASIC METABOLIC PANEL 2022-01-17 08:51:00 Tien [facility] BASIC METABOLIC PANEL 2022-01-17 04:47:00 LindseyTien [facility] CBC/DIFF 2022-01-17 04:47:00 Tien Lucas [facility] MAGNESIUM 2022-01-17 04:47:00 Tien Lucas [facility] PHOSPHORUS 2022-01-17 04:47:00 Noe Lucash Esther [facility] CBC 2022-01-17 04:47:00 Noe Lucash Esther [facility] BASIC METABOLIC PANEL 2022-01-17 00:08:00 LindseyTien [facility] 12 LEAD EKG 2022-01-16 21:23:25 Noe Lucash Esther Lynne [facility] BASIC METABOLIC PANEL 2022-01-16 21:08:00 LnidseyTien [facility] XRAY CHEST 2 VIEWS 2022-01-16 19:56:00 Tien Lucas [facility] ealt IP CONSULT TO PHYSICAL 2022-01-16 19:17:17 Lindsey Tien [facility] THERAPY CONSULT CLINICAL CASE 2022-01-16 19:17:17 Lindsey, Tien Santana [facility] MANAGEMENT (RN/SW) SEQUENTIAL COMPRESSION 2022-01-16 19:17:17 Lindsey Tien [facility] PUMP SODIUM, URINE, RANDOM 2022-01-16 16:00:00 Kevin Nieves [facility] CREATININE, URINE, RANDOM 2022-01-16 16:00:00 Kevin Nieves [facility] OSMOLALITY, URINE 2022-01-16 16:00:00 Kevin Nieves [facility] SARS-COV-2, FLU A/B, RSV 2022-01-16 15:20:00 Ezequiel Kevin [facility] CORONAVIRUS, COVID-19, OLENA 2022-01-16 15:20:00 Kevin Nieves [facility] FOLIC ACID 2022-01-16 14:13:00 Kevin Nieves [facility] ealt CREATININE POC 2022-01-16 13:55:00 [facility]OC 2022-01-16 13:46:00 Raymon Martin [facility]alt [facility] CBC/DIFF 2022-01-16 12:12:00 Raymon Martin [facility]alt [facility] CBC 2022-01-16 12:12:00 Raymon Martin [facility]alt [facility] BASIC METABOLIC PANEL 2022-01-16 12:11:00 Sadiq Vargas [facility] MAGNESIUM 2022-01-16 12:11:00 Sadiq Vargas a lt VITAMIN B12 2022-01-16 12:11:00 Kevin Nieves [facility] ealth OSMOLALITY,SERUM 2022-01-16 12:11:00 Kevin Nieves [facility] INFUSION PUMP 2022-01-11 09:21:05 Helene Anderson [facility] GLUCOSE POC 2022-01-11 07:54:00 Helene Anderson [facility] BASIC METABOLIC PANEL 2022-01-11 04:07:00 Merissa Richards [facility] MAGNESIUM 2022-01-11 04:07:00 [facility] 2022-01-11 04:07:00 Merissa Richards [facility] CBC/DIFF 2022-01-11 04:06:00 [facility] IRON [facility]FILE 2022-01-11 04:06:00 [facility] FOLIC ACID 2022-01-11 04:06:00 Merissa [facility] CBC 2022-01-11 04:06:00 Merissa Richards [facility] h GLUCOSE POC 2022-01-10 18:16:00 Helene Anderson [facility] URINALYSIS 2022-01-10 16:10:00 Merissa [facility] URINALYSIS 2022-01-10 16:10:00 Merissa [facility] SARS-COV-2, FLU A/B, RSV 2022-01-10 15:54:00 Merissa Richards [facility] CORONAVIRUS, COVID-19, OLENA 2022-01-10 15:54:00 Antoine Hester [facility] BASIC METABOLIC PANEL 2022-01-10 15:54:00 Merissa Richards [facility] VITAMIN B12 2022-01-10 15:54:00 Merissa Richards [facility] VBG POC 2022-01-10 11:14:00 Best, Dia Lynne [facility] CBC/DIFF 2022-01-10 11:13:00 Antoine Hester [facility] BASIC METABOLIC PANEL 2022-01-10 11:13:00 Antoine Hester [facility] LACTIC ACID 2022-01-10 11:13:00 Antoine Hester [facility] h CBC 2022-01-10 11:13:00 Antoine Hester [facility] h LIVER PROFILE 2022-01-10 11:13:00 Fercho Merissa Felicita [facility] CK, TOTAL 2022-01-10 11:13:00 Fercho Merissa Mims [facility] h FERRITIN 2022-01-10 11:13:00 Fercho Merissa Felicita [facility] CREATINE KINASE MB (CKMB) 2022-01-10 11:13:00 Fercho Merissa Q [facility] XRAY CHEST 2 VIEWS 2022-01-08 21:50:14 Tanja Sebastian [facility] CBC/DIFF 2022-01-08 21:27:[address] [facility] BASIC METABOLIC PANEL 2022-01-08 21:27:00 Tanja Sebastian [facility] LIVER PROFILE 2022-01-08 21:27:00 Tanja Sebastian [facility] lt CK, TOTAL 2022-01-08 21:27:[address] [facility] TROPONIN I 2022-01-08 21:27:00 Tanja Sebastian [facility] lt CBC 2022-01-08 21:27:00 Randa Sebastianandra Watson [facility] CREATINE KINASE MB (CKMB) 2022-01-08 21:27:00 Randa Sebastianandra [facility] 12 LEAD EKG 2022-01-08 20:59:[address] [facility] COMP. METABOLIC PANEL 2021-09-14 03:41:00 Mickey Ramos [facility] ([id number]) Medical Branch CBC WITH DIFF 2021-09-14 03:41:00 Mickey Ramos [facility] CT HEAD WO CONTRAST 2021-09-12 14:10:00 Alona Carty [facility] TROPONIN I 2021-09-12 13:00:00 [facility] BASIC METABOLIC PANEL (NA, 2021-09-12 13:00:00 Odin [facility] K, CL, CO2, GLUCOSE, BUN, Medica l Branch CREATININE, CA) CBC WITH DIFF 2021-09-12 13:00:00 [facility] N-TERMINAL PRO-BNP 2021-09-12 13:00:00 Odin [facility] LIPASE 2021-09-09 05:30:[address] [facility] COMP. METABOLIC PANEL 2021-09-09 05:30:00 Sebastian Pacheco [facility] ([id number]) [facility] CBC WITH DIFF 2021-09-09 05:30:[address] [facility] URINALYSIS 2021-09-08 04:45:[address] [facility] CT ABDOMEN PELVIS W 2021-09-08 02:25:23 Sebastian Pacheco [facility] CONTRAST [facility] LIPASE 2021-09-08 02:02:[address] [facility] COMP. METABOLIC PANEL 2021-09-08 02:02:00 Sebastian Pacheco [facility] ([id number]) [facility] CBC WITH DIFF 2021-09-08 02:02:[address] [facility] LACTIC ACID WHOLE BLOOD 2021-09-08 02:02:00 Sebastian Pacheco [facility] COVID-19 (ID NOW RAPID 2021-09-08 01:54:00 Sebastian Pacheco [facility] TESTING) Medical Branch BASIC METABOLIC PANEL (NA, 2021-09-04 12:30:00 Demario Godoy [facility] K, CL, CO2, GLUCOSE, BUN, Medica l Branch CREATININE, CA) BASIC METABOLIC PANEL (NA, 2021-09-04 12:30:00 Demario Godoy [facility] K, CL, CO2, GLUCOSE, BUN, Medica l Branch CREATININE, CA) SURGICAL PATHOLOGY EXAM 2021-09-03 14:01:00 Phacathy, [facility] COLOSTOMY REVISION 2021-09-03 12:58:00 Phatak, [facility] COLOSTOMY REVISION 2021-09-03 12:58:00 Phatak, [facility] BASIC METABOLIC PANEL (NA, 2021-09-03 11:26:00 Siddiqi, [facility], CL, CO2, GLUCOSE, BUN, Medica l Branch CREATININE, CA) CBC WITHOUT DIFF 2021-09-03 11:26:00 Siddiqi, [facility] BASIC METABOLIC PANEL (NA, 2021-09-03 11:26:00 Siddiqi, [facility] K, CL, CO2, GLUCOSE, BUN, Medica l Branch CREATININE, CA) CBC WITHOUT DIFF 2021-09-03 11:26:00 Siddiqi, [facility] TRANSTHORACIC ECHO (TTE) 2021-09-02 21:22:12 Siddiqi, Cynthia [facility] COMPLETE W/ CONTRAST Medical [facility] TRANSTHORACIC ECHO (TTE) 2021-09-02 21:22:12 Siddiqi, Cynthia [facility] COMPLETE W/ CONTRAST Medical [facility] COVID-19 (ID NOW RAPID 2021-09-02 19:35:00 Demario Godoy [facility] TESTING) Medical Branch LAB ONLY COVID 2021-09-02 19:35:00 Demario Godoy [facility] INTERPRETATION Medical Branch COVID-19 (ID NOW RAPID 2021-09-02 19:35:00 Demario Godoy [facility] TESTING) Medical Branch LAB ONLY COVID 2021-09-02 19:35:00 Demario Godoy [facility] INTERPRETATION Medical Branch BASIC METABOLIC PANEL (NA, 2021-09-02 10:40:00 Siddiqi, [facility] K, CL, CO2, GLUCOSE, BUN, Medica l Branch CREATININE, CA) BASIC METABOLIC PANEL (NA, 2021-09-02 10:40:00 Siddiqi, [facility] K, CL, CO2, GLUCOSE, BUN, Medica l Branch CREATININE, CA) BASIC METABOLIC PANEL (NA, 2021-09-01 21:20:00 Siddiqi, [facility] K, CL, CO2, GLUCOSE, BUN, Medica l Branch CREATININE, CA) BASIC METABOLIC PANEL (NA, 2021-09-01 21:20:00 Siddiqi, [facility] K, CL, CO2, GLUCOSE, BUN, Medica l Branch CREATININE, CA) BLOOD CULTURE SCREEN 2021-09-01 08:03:00 Chasity [facility] BASIC METABOLIC PANEL (NA, 2021-09-01 08:03:00 Siddiqi, [facility] K, CL, CO2, GLUCOSE, BUN, Medica l Branch CREATININE, CA) CBC WITH DIFF 2021-09-01 08:03:00 Siddiqi, [facility] BLOOD CULTURE SCREEN 2021-09-01 08:03:[facility] (NA, 2021-09-01 08:03:00 Siddiqi, [facility] K, CL, CO2, GLUCOSE, BUN, Medica l Branch CREATININE, CA) CBC WITH DIFF 2021-09-01 08:03:00 Siddiqi, [facility] MAGNESIUM 2021-09-01 02:09:00 [facility]OL[facility] PANEL (NA, 2021-09-01 02:09:00 Roberto [facility] K, CL, CO2, GLUCOSE, BUN, Arpita Medica l Branch CREATININE, CA) MAGNESIUM 2021-09-01 02:09:00 [facility] BASIC METABOLIC PANEL (NA, 2021-09-01 02:09:00 Roberto [facility] K, CL, CO2, GLUCOSE, BUN, Ar[facility] CREATININE, CA) LACTIC ACID WHOLE BLOOD 2021-08-31 12:40:00 Siddiqi, [facility] LACTIC ACID WHOLE BLOOD 2021-08-31 12:40:00 Siddiqi, [facility] BASIC METABOLIC PANEL (NA, 2021-08-31 11:44:00 Gaspar, [facility] K, CL, CO2, GLUCOSE, BUN, Medica l Branch CREATININE, CA) BASIC METABOLIC PANEL (NA, 2021-08-31 11:44:00 Gaspar, [facility] K, CL, CO2, GLUCOSE, BUN, Medica l Branch CREATININE, CA) BASIC METABOLIC PANEL (NA, 2021-08-31 06:29:00 Gaspar, [facility] K, CL, CO2, GLUCOSE, BUN, Medica l Branch CREATININE, CA) LACTIC ACID WHOLE BLOOD 2021-08-31 06:29[facility]00 [facility]OL[facility] PANEL (NA, 2021-08-31 06:29:00 Gaspar, [facility] K, CL, CO2, GLUCOSE, BUN, Medica l Branch CREATININE, CA) LACTIC ACID WHOLE BLOOD 2021-08-31 06:29:[address] [facility]LO[facility] S[facility]EN 2021-08-31 06:28:00 Chasity [facility] BLOOD CULTURE WORKUP 2021-08-31 06:28:00 Chasity [facility] GRAM POSITIVE BLOOD 2021-08-31 06:28:00 [facility] PROBE-AEROBIC BLOOD CULTURE SCREEN 2021-08-31 06:28:00 Chasity [facility] BLOOD CULTURE WORKUP 2021-08-31 06:28:00 Chasity [facility] GRAM POSITIVE BLOOD 2021-08-31 06:28:00 [facility] PROBE-AEROBIC XR CHEST 2 VW 2021-08-31 03:08:00 Riccardo [facility] XR CHEST 2 VW 2021-08-31 03:08:00 Riccardo [facility] OSMOLALITY, SERUM OR 2021-08-31 02:44:[facility] 2021-08-31 02:44:00 Riccardo [facility] THYROID STIMULATING 2021-08-31 02:44:[facility]EL (NA, 2021-08-31 02:44:00 Riccardo [facility] K, CL, CO2, GLUCOSE, BUN, [facility] CREATININE, CA) OSMOLALITY, SERUM OR 2021-08-31 02:44:00 [facility] TROP[facility] I 2021-08-31 02:44:00 Riccardo [facility] THYROID STIMULATING 2021-08-31 02:44:00 Chasity [facility] BASIC METABOLIC PANEL (NA, 2021-08-31 02:44:00 Riccardo [facility] K, CL, CO2, GLUCOSE, BUN, [facility] CREATININE, CA) OSMOLALITY URINE 2021-08-31 00:08:00 Chasity [facility] URINALYSIS 2021-08-31 00:08:00 Riccardo [facility] SODIUM, URINE RANDOM 2021-08-31 00:08:00 Chasity [facility] CHLORIDE, URINE RANDOM 2021-08-31 00:08:00 Chasity [facility] OSMOLALITY URINE 2021-08-31 00:08:00 Chasity [facility] URINALYSIS 2021-08-31 00:08:00 Riccardo [facility] SODIUM, URINE RANDOM 2021-08-31 00:08:00 [facility], [facility]INE RANDOM 2021-08-31 00:08:00 [facility] 2021-08-30 23:27:00 Riccardo [facility] COMP. METABOLIC PANEL 2021-08-30 23:27:00 Riccardo [facility] ([id number]) [facility] CBC WITH DIFF 2021-08-30 23:27:00 Gayatri Gu [facility] N-TERMINAL PRO-BNP 2021-08-30 23:27:00 Gayatri Gu [facility] TROPONIN I 2021-08-30 23:27:00 Riccardo [facility] COMP. METABOLIC PANEL 2021-08-30 23:27:00 Riccardo [facility] ([id number]) [facility] CBC WITH DIFF 2021-08-30 23:27:00 Riccardo [facility] N-TERMINAL PRO-BNP 2021-08-30 23:27:00 Gayatri Gu [facility] HB ECG ROUTINE & RHYTHM 2021-08-30 23:04:48 [facility] & RHYTHM 2021-08-30 23:04:48 Gayatri Gu Un [facility] XR CHEST 1 VW 2021-08-30 00:31:51 Alvarez [facility] POCT RAPID STREP SCREEN 2021-08-30 00:24:00 Alvarez Austin [facility] FOR GROUP A Medical Branch GALV ONLY - INFLUENZA A B 2021-08-30 00:15:00 Alvarez Austin [facility] RSV PCR Medical Branch COVID-19 (MOLECULAR 2021-08-30 00:15:00 Alvarez Austin [facility] TESTING [facility] NUCLEIC ACID AMPLIFICATION) PREALBUMIN, SERUM 2021-08-05 10:46:00 Cesar [facility] PHOSPHORUS 2021-08-05 10:46:00 Cesar [facility] ALBUMIN 2021-08-05 10:46:00 Cesar [facility] MAGNESIUM 2021-08-05 10:46:00 Jessica Guerrero [facility] BASIC METABOLIC PANEL (NA, 2021-08-05 10:46:00 Jessica Guerrero [facility] K, CL, CO2, GLUCOSE, BUN, Medica l Branch CREATININE, CA) CBC WITH DIFF 2021-08-05 10:46:00 Jessica Guerrero [facility] COVID-19 (ID NOW RAPID 2021-08-05 00:29:00 Jessica Guerrero [facility] TESTING) Medical Branch PHOSPHORUS 2021-08-04 11:37:00 Hakeem Jo [facility] MAGNESIUM 2021-08-04 11:37:00 [facility]EL (NA, 2021-08-04 11:37:00 Hakeem Jo [facility] K, CL, CO2, GLUCOSE, BUN, [place] CREATININE, CA) CBC WITH DIFF 2021-08-04 11:37:00 Hakeem Jo [facility] PHOSPHORUS 2021-08-03 10:36:00 Hakeem Jo [facility] MAGNESIUM 2021-08-03 10:36:00 Hakeem oJ [facility] BASIC METABOLIC PANEL (NA, 2021-08-03 10:36:00 [facility] K, CL, CO2, GLUCOSE, BUN, [place] CREATININE, CA) CBC WITH DIFF 2021-08-03 10:36:00 Hakeem Jo [facility] PHOSPHORUS 2021-08-02 10:53:00 Hakeem Jo [facility] MAGNESIUM 2021-08-02 10:53:00 Hakeem Jo [facility] BASIC METABOLIC PANEL (NA, 2021-08-02 10:53:00 [facility], [facility], CO2, GLUCOSE, BUN, [place] [facility] CREATININE, CA) CBC WITH DIFF 2021-08-02 10:53:00 Hakeem Jo [facility] PHOSPHORUS 2021-08-01 10:03:00 Hakeem Jo [facility] MAGNESIUM 2021-08-01 10:03:00 [facility]OL[facility] PANEL (NA, 2021-08-01 10:03:00 Hakeem Jo, [facility] K, CL, CO2, GLUCOSE, BUN, [place] CREATININE, CA) CBC WITH DIFF 2021-08-01 10:03:00 [facility] PREALB[facility], SERUM 2021-07-31 10:22:00 Antonino jin [facility] [place], [place] [facility] PHOSPHORUS 2021-07-31 10:22:00 Hakeem Jo [facility] MAGNESIUM 2021-07-31 10:22:00 [facility] BASIC [facility]OLIC PANEL (NA, 2021-07-31 10:22:00 Hakeem Jo, [facility] K, CL, CO2, GLUCOSE, BUN, [facility] Medica l Branch CREATININE, CA) CBC WITH DIFF 2021-07-31 10:22:00 [facility] COVID-[facility] (ID NOW RAPID 2021-07-30 06:13:00 Jonah Rees [facility] TESTING) Medical Branch LAB ONLY COVID 2021-07-30 06:13:00 Jonah Rees [facility] INTERPRETATION [facility] CT ABDOMEN PELVIS W 2021-07-30 05:19:01 Jonah Rees [facility] CONTRAST [facility] Branch COMP. METABOLIC PANEL 2021-07-30 03:25:00 Jonah Rees [facility] ([id number]) Medical Branch LACTIC ACID WHOLE BLOOD 2021-07-30 02:53:00 Jonah Rees [facility] LIPASE 2021-07-30 02:52:00 Jonah Rees [facility] CBC WITH DIFF 2021-07-30 02:52:00 Jonah Rees [facility] CONSENT/REFUSAL FOR 2021-07-30 02:09:09 Doctor Unassigned, [facility] DIAGNOSIS AND TREATMENT [place] [facility] PHOSPHORUS 2021-07-26 12:30:00 Antonino Dietrich [facility] MAGNESIUM 2021-07-26 12:30:00 Antonino Dietrich [facility] [place] BASIC METABOLIC PANEL (NA, 2021-07-26 12:30:00 Antonino Karlo de [facility] K, CL, CO2, GLUCOSE, BUN, [place] CREATININE, CA) CBC WITH DIFF 2021-07-26 12:30:00 Antonino Dietrich [facility] [place] PHOSPHORUS 2021-07-25 11:32:00 [facility] 2021-07-25 11:32:00 Hakeem [facility] BASIC METABOLIC PANEL (NA, 2021-07-25 11:32:00 Antonino Karlo de [facility] [facility] [place] K, CL, CO2, GLUCOSE, BUN, [place] CREATININE, CA) CBC WITH DIFF 2021-07-25 11:32:00 Antonino Dietrich [facility] [place] [place] [facility] CBC WITH DIFF 2021-07-25 04:13:00 Cesar liu [facility] PHOSPHORUS 2021-07-24 12:18:00 Cesar [facility] MAGNESIUM 2021-07-24 12:18:00 Ceasr, [facility] BASIC METABOLIC PANEL (NA, 2021-07-24 12:18:00 Jessica Guerrero [facility] K, CL, CO2, GLUCOSE, BUN, Medica l Branch CREATININE, CA) COVID-19 (ID NOW RAPID 2021-07-23 15:23:00 Flaco Lemus [facility] TESTING) Medical Branch LAB ONLY COVID 2021-07-23 15:23:00 Flaco Lemus [facility] INTERPRETATION [facility] URINALYSIS 2021-07-23 12:49:00 Hakeem Jo [facility] PHOSPHORUS 2021-07-23 12:42:00 Hakeem Jo [facility] MAGNESIUM 2021-07-23 12:42:00 Hakeem Jo [facility] BASIC METABOLIC PANEL (NA, 2021-07-23 12:42:00 Hakeem Jo [facility] K, CL, CO2, GLUCOSE, BUN, Sk[facility] Medica [facility] Branch CREATININE, CA) CBC WITH DIFF 2021-07-23 12:42:00 Hakeem Jo [facility] CT ABDOMEN PELVIS WO 2021-07-23 08:55:17 Flaco Lemus [facility] EXTERNAL PROVIDER RECORDS 2021-06-25 05:01:00 Doctor Unassigned, [facility] Name [facility] BASIC METABOLIC PANEL (NA, 2021-06-03 10:37:00 Shweta Anderson [facility] K, CL, CO2, GLUCOSE, BUN, Medica l Branch CREATININE, CA) BASIC METABOLIC PANEL (NA, 2021-06-02 10:54:00 Shweta Anderson [facility] K, CL, CO2, GLUCOSE, BUN, Medica l Branch CREATININE, CA) CLOSTRIDIUM DIFFICILE 2021-06-01 22:51:00 [facility] FECAL PATHOGENS BY PCR 2021-06-01 22:51:00 JordonCharly Yuen [facility] BASIC METABOLIC PANEL (NA, 2021-06-01 15:42:00 Shweta Anderson [facility] K, CL, CO2, GLUCOSE, BUN, Medica l Branch CREATININE, CA) LACTIC ACID WHOLE BLOOD 2021-06-01 05:38:00 Clementine Castellon [facility] CT ABDOMEN PELVIS W 2021-05-31 23:25:45 Willie Garrett [facility] Branch LIPASE 2021-05-31 22:44:00 Willie Garrett [facility] TROPONIN I 2021-05-31 22:44:00 Willie Garrett [facility] COMP. METABOLIC PANEL 2021-05-31 22:44:00 Willie Garrett [facility] ([id number]) Medical Branch CBC WITH DIFF 2021-05-31 22:44:00 Willie Garrett [facility] COVID-19 (ID NOW RAPID 2021-05-31 22:44:00 Willie Garrett [facility] TESTING) Medical Branch LAB ONLY COVID 2021-05-31 22:44:00 Willie Garrett [facility] INTERPRETATION [facility] PHOSPHORUS 2021-05-21 09:03:00 Cesar [facility] MAGNESIUM 2021-05-21 09:03:00 Cesar [facility] BASIC METABOLIC PANEL (NA, 2021-05-21 09:03:00 NoonanAgatha [facility] K, CL, CO2, GLUCOSE, BUN, Medica l Branch CREATININE, CA) CBC WITH DIFF 2021-05-21 09:03:00 Agatha Noonan [facility] XR KUB 2021-05-20 20:02:49 Andrzej [facility] LIPASE 2021-05-20 20:00:00 Andrzej [facility] COMP. METABOLIC PANEL 2021-05-20 20:00:00 Bernardo Donnelly [facility] ([id number]) [facility] CBC WITH DIFF 2021-05-20 20:00:00 Andrzej [facility] LACTIC ACID WHOLE BLOOD 2021-05-20 20:00:00 Bernardo Donnelly [facility] COVID-19 (ID NOW RAPID 2021-05-20 20:00:00 Bernardo Donnelly [facility] TESTING) Medical Branch BASIC METABOLIC PANEL (NA, 2021-05-08 10:04:00 Rodrick Keane [facility] K, CL, CO2, GLUCOSE, BUN, Medica l Branch CREATININE, CA) CBC WITH DIFF 2021-05-08 10:04:00 Irene Lora [facility] XR KUB 2021-05-08 09:44:[address] [facility] XR ABDOMEN 1 VW 2021-05-08 05:32:36 [facility] ABDOMEN PELVIS W 2021-05-08 01:08:43 Beto [facility] CONTRAST Medical Branch HEPATIC FUNCTION PANEL 2021-05-08 00:49:00 Beto [facility] ([id number]) (ALB,T.PRO,BILI Medical Branch T,BU/BC,ALT,AST,ALK PHOS) BASIC METABOLIC PANEL (NA, 2021-05-08 00:49:00 Alona Pérez [facility] K, CL, CO2, GLUCOSE, BUN, Medica l Branch CREATININE, CA) CBC WITH DIFF 2021-05-08 00:49:[address] [facility] COVID-19 (ID NOW RAPID 2021-05-08 00:42:00 Beto [facility] TESTING) Medical Branch LAB ONLY COVID 2021-05-08 00:42:00 Beto Bronson [facility] INTERPRETATION [facility] NOTICE OF PRIVACY 2020-09-27 01:47:31 Doctor Unassigned, [facility] PRACTICES [place] [facility] CONSENT/REFUSAL FOR 2020-09-27 01:47:01 Doctor Unassigned, [facility] DIAGNOSIS AND TREATMENT [place] [facility] [place] BASIC METABOLIC PANEL (NA, 2020-08-23 10:03:00 Nataly [facility] K, CL, CO2, GLUCOSE, BUN, Medica l [place] CREATININE, CA) CBC WITHOUT DIFF 2020-08-23 10:03:00 Nataly [facility] COVID-19 (ID NOW RAPID 2020-08-23 00:23:00 Funmilayo Pinzon Un [facility] TESTING) Medical Branch HB ECG ROUTINE & RHYTHM 2020-08-22 22:19:37 Funmilayo Pinzon [facility] STRIP Medical Branch HEPATIC FUNCTION PANEL 2020-08-22 22:08:00 Funmilayo Pinzon [facility] ([id number]) (ALB,T.PRO,BILI Medical Branch T,BU/BC,ALT,AST,ALK PHOS) BASIC METABOLIC PANEL (NA, 2020-08-22 22:08:00 Nallely Pinzon [facility] K, CL, CO2, GLUCOSE, BUN, Medica l Branch CREATININE, CA) CBC WITH DIFF 2020-08-22 22:08:00 Funmilayo Pinzon [facility] CT SOFT TISSUE NECK W 2020-07-10 00:21:10 Juan M Aguillon [facility] URINALYSIS 2020-07-09 23:07:00 Juan M Aguillon [facility] BASIC METABOLIC PANEL (NA, 2020-07-09 22:51:00 Kirk Aguillon [facility] K, CL, CO2, GLUCOSE, BUN, Medica l Branch CREATININE, CA) CBC WITH DIFF 2020-07-09 22:51:00 Juan M Aguillon [facility] RAPID STREP SCREEN FOR 2020-07-09 22:51:00 Juan M Aguillon [facility] GROUP A Medical Branch COVID-19 (ID NOW RAPID 2020-07-09 22:51:00 Juan M Aguillon [facility] TESTING) Medical [place] CT ABDOMEN PELVIS W 2020-06-05 13:02:55 Travis Valdez [facility] URINALYSIS 2020-06-05 13:02:00 More Goetz [facility] EKG-12 LEAD 2020-06-05 11:57:46 More Goetz [facility] LIPASE 2020-06-05 11:57:00 More Goetz [facility] TROPONIN I 2020-06-05 11:57:00 More Goetz [facility] HEPATIC FUNCTION PANEL 2020-06-05 11:57:00 More Goetz [facility] ([id number]) (ALB,T.PRO,BILI Medical Branch T,BU/BC,ALT,AST,ALK PHOS) BASIC METABOLIC PANEL (NA, 2020-06-05 11:57:00 More Goetz [facility] K, CL, CO2, GLUCOSE, BUN, Medica l Branch CREATININE, CA) CBC WITH DIFF 2020-06-05 11:57:00 More Goetz [facility] LACTIC ACID WHOLE BLOOD 2020-06-05 11:57:00 More Goetz [facility] PHOSPHORUS 2020-05-31 07:54:00 Katia Gomez [facility] MAGNESIUM 2020-05-31 07:54:00 Dongur Katia [facility] BASIC METABOLIC PANEL (NA, 2020-05-31 07:54:00 Katia Gomez [facility] K, CL, CO2, GLUCOSE, BUN, Medica l Branch CREATININE, CA) CBC WITH DIFF 2020-05-31 07:54:00 Katia Gomez [facility] IR CHANGE OF ABSCESS DRAIN 2020-05-30 19:33:43 Ashwin Marshall [facility] PHOSPHORUS 2020-05-30 08:19:00 Lambreton Gonzales, [facility] MAGNESIUM 2020-05-30 08:19:00 Lambreton Gonzales, [facility] BASIC METABOLIC PANEL (NA, 2020-05-30 08:19:00 Lambreton Carlos a, [employer] K, CL, CO2, GLUCOSE, BUN, Rex Medica [facility] Branch CREATININE, CA) PHOSPHORUS 2020-05-29 06:43:00 Lambreton Gonzales, [facility] MAGNESIUM 2020-05-29 06:43:00 Lambreton Gonzales, [facility] BASIC METABOLIC PANEL (NA, 2020-05-29 06:43:00 Lambreton Carlos a, [employer] [place] K, CL, CO2, GLUCOSE, BUN, [facility] CREATININE, CA) PHOSPHORUS 2020-05-28 09:08:00 Lambreton Gonzales, [facility] MAGNESIUM 2020-05-28 09:08:00 Lambreton Gonzales, [facility] BASIC METABOLIC PANEL (NA, 2020-05-28 09:08:00 Lambreton Carlos a, [employer] [place] K, CL, CO2, GLUCOSE, BUN, [facility] CREATININE, CA) PHOSPHORUS 2020-05-27 09:33:00 Lambreton Gonzales, [facility] MAGNESIUM 2020-05-27 09:33:00 Lambreton Gonzales, [facility] BASIC METABOLIC PANEL (NA, 2020-05-27 09:33:00 Lambreton Carlos a, [employer] [place] K, CL, CO2, GLUCOSE, BUN, [facility] CREATININE, CA) PHOSPHORUS 2020-05-26 09:27:00 Lambreton Gonzales, [facility] MAGNESIUM 2020-05-26 09:27:00 Lambreton Gonzales, [facility] BASIC METABOLIC PANEL (NA, 2020-05-26 09:27:00 Lambreton Carlos a, [employer] [place] K, CL, CO2, GLUCOSE, BUN, [facility] CREATININE, CA) PHOSPHORUS 2020-05-25 21:42:00 Lambreton Gonzales, [facility] MAGNESIUM 2020-05-25 21:42:00 Lambreton Gonzales, [facility] BASIC METABOLIC PANEL (NA, 2020-05-25 21:42:00 Lambreton Carlos a, [employer] [place] K, CL, CO2, GLUCOSE, BUN, [facility] CREATININE, CA) CBC WITH DIFF 2020-05-25 21:42:00 Lambreton Gonzales, [facility] XR KUB 2020-05-25 20:39:54 Lambreton Gonzales, [facility] PHOSPHORUS 2020-05-25 08:48:00 Lambreton Gonzales, [facility] MAGNESIUM 2020-05-25 08:48:00 Lambreton Gonzales, [facility] BASIC METABOLIC PANEL (NA, 2020-05-25 08:48:00 Lambreton Carlos a, [employer] [place] K, CL, CO2, GLUCOSE, BUN, [facility] CREATININE, CA) PHOSPHORUS 2020-05-24 20:41:00 Lambreton Gonzales, [facility] MAGNESIUM 2020-05-24 20:41:00 Socorro Gonzales [facility] BASIC METABOLIC PANEL (NA, 2020-05-24 20:41:00 [facility], CL, CO2, GLUCOSE, BUN, Rex [facility]ica [facility] CREATININE, CA) IR CHANGE OF ABSCESS DRAIN 2020-05-24 17:57:11 Vance Stafford U [facility] IR ASPIRATION ABSCESS 2020-05-24 17:24:[facility] NEEDLE [facility] ASPIRATE OR ABSCESS 2020-05-24 17:23:00 Nixon Prince [facility] CULTURE(AEROBIC/ANAEROBIC) Medic [place] Branch CBC WITH DIFF 2020-05-24 11:08:00 Sumeet [facility] W 2020-05-23 15:02:24 Randa [facility] CONTRAST [facility] BASIC METABOLIC PANEL (NA, 2020-05-23 09:45:00 Opelika [facility] K, CL, CO2, GLUCOSE, BUN, [facility] Medica [facility] Branch CREATININE, CA) COVID-19 (PCR MOLECULAR 2020-05-23 06:53:00 Bia Pedro [facility] TESTING) Medical Branch URINALYSIS 2020-05-22 21:41:00 Colette Ohgeri [facility] LIPASE 2020-05-22 21:26:00 Colette [facility] HEPATIC FUNCTION PANEL 2020-05-22 21:26:00 LopezAlex sweeney [facility] ([id number]) (ALB,T.PRO,BILI [facility] T,BU/BC,ALT,AST,ALK PHOS) BASIC METABOLIC PANEL (NA, 2020-05-22 21:26:00 Alex Lopez [facility] K, CL, CO2, GLUCOSE, BUN, Medica l Branch CREATININE, CA) CBC WITH DIFF 2020-05-22 21:26:00 Lopez, [facility] PROTHROMBIN TIME / INR 2020-05-22 21:26:00 [facility] ACTIVATED PARTIAL THRMPLAS 2020-05-22 21:26:00 Alex Lopez [facility] SELENA [facility] XR CHEST 1 VW 2020-05-22 20:55:00 Alex Lopez [facility] HOSPITAL ADMISSION 2020-05-22 05:01:00 Doctor Unassigned, [facility] [place] [facility] URINALYSIS 2020-05-20 09:58:00 Jonah Rodriguez [facility] COVID-19 (ID NOW RAPID 2020-05-20 09:48:00 Jonah Rodriguez [facility] TESTING) [facility] CT ABDOMEN PELVIS W 2020-05-20 04:07:43 Jonah Rodriguez [facility] CONTRAST [facility] LIPASE 2020-05-20 03:09:00 [facility] MAGNESIUM 2020-05-20 03:09:00 [facility] TROPONIN I 2020-05-20 03:09:00 [facility] COMP. METABOLIC PANEL 2020-05-20 03:09:00 Jonah Rodriguez [facility] ([id number]) [facility] CBC WITH DIFF 2020-05-20 03:09:00 Jonah Rodriguez [facility] PHOSPHORUS 2020-05-10 09:13:[address] [facility] MAGNESIUM 2020-05-10 09:13:00 [facility] MET[facility]OL[facility] PANEL (NA, 2020-05-10 09:13:00 Randa [facility] K, CL, CO2, GLUCOSE, BUN, Medica l Branch CREATININE, CA) CBC WITH DIFF 2020-05-10 09:13:[address] [facility] PHOSPHORUS 2020-05-09 10:28:[address] [facility] MAGNESIUM 2020-05-09 10:28:00 [facility] BASIC METABOLIC PANEL (NA, 2020-05-09 10:28:00 Randa [facility] K, CL, CO2, GLUCOSE, BUN, Medica l Branch CREATININE, CA) CBC WITH DIFF 2020-05-09 10:28:00 [facility] PHOSPHORUS 2020-05-08 11:18:00 [facility] MAGNESIUM 2020-05-08 11:18:00 [facility] BASIC METABOLIC PANEL (NA, 2020-05-08 11:18:00 [facility] K, CL, CO2, GLUCOSE, BUN, Medica l Branch CREATININE, CA) CBC WITH DIFF 2020-05-08 11:18:00 [facility] PHOSPHORUS 2020-05-07 09:21:00 [facility] MAGNESIUM 2020-05-07 09:21:00 [facility] BASIC METABOLIC PANEL (NA, 2020-05-07 09:21:00 [facility] K, CL, CO2, GLUCOSE, BUN, Medica l Branch CREATININE, CA) CBC WITH DIFF 2020-05-07 09:21:00 [facility] PHOSPHORUS 2020-05-06 09:57:00 [facility] MAGNESIUM 2020-05-06 09:57:00 [facility] BASIC METABOLIC PANEL (NA, 2020-05-06 09:57:00 [facility] K, CL, CO2, GLUCOSE, BUN, Medica l Branch CREATININE, CA) CBC WITH DIFF 2020-05-06 09:56:00 [facility] IR DRAINAGE BY CATHETER 2020-05-05 19:55:00 [facility] PERITONEAL OR Medical Branch RETROPERITONEAL BODY FLUID 2020-05-05 19:06:00 Nixon Prince [facility] CULTURE(AEROBIC/ANAEROBIC) [facility] FUNGUS (ROUTINE) CULTURE 2020-05-05 19:06:00 Nixon Prince [facility] BODY FLUID 2020-05-05 19:00:00 Ivan Guthrie [facility] CULTURE(AEROBIC/ANAEROBIC) [facility] FUNGUS (ROUTINE) CULTURE 2020-05-05 19:00:00 Ivan Guthrie [facility] PREPARE PACKED RBC 2020-05-05 15:59:33 Hakeem Jo [facility] HB ABO GROUPING 2020-05-05 10:55:00 [facility] 2020-05-05 08:56[facility]00 [facility] 2020-05-05 08:56:00 [facility] 2020-05-05 08:56:00 [facility] BASIC METABOLIC PANEL (NA, 2020-05-05 08:56:00 Randa [facility] K, CL, CO2, GLUCOSE, BUN, Medica l Branch CREATININE, CA) CBC WITH DIFF 2020-05-05 08:56:00 [facility] URINALYSIS 2020-05-05 05:11:00 Lora Hall [facility] CT ABDOMEN PELVIS W 2020-05-05 04:18:56 Lora Hall [facility] 2020-05-05 02:35:00 Lora Hall [facility] COMP. METABOLIC PANEL 2020-05-05 02:35:00 Lora Hall [facility] ([id number]) [facility] CBC WITH DIFF 2020-05-05 02:35:00 Lora Hall [facility] COVID-19 (ID NOW RAPID 2020-05-05 02:27:00 Lora Hall [facility] TESTING) Medical Branch HOSPITAL ADMISSION 2020-05-04 05:01:00 Doctor Unassigned, [facility] [place] [facility] CBC WITH DIFF 2020-05-01 11:32:00 [facility] 2020-05-01 11:32:00 [facility] 2020-05-01 11:32:00 [facility] BASIC METABOLIC PANEL (NA, 2020-05-01 11:32:00 Randa [facility] K, CL, CO2, GLUCOSE, BUN, Medica l Branch CREATININE, CA) CBC WITH DIFF 2020-04-29 11:31:00 [facility] 2020-04-29 11:31:00 [facility]UM 2020-04-29 11:31:00 [facility] BASIC METABOLIC PANEL (NA, 2020-04-29 11:31:00 Randa [facility] K, CL, CO2, GLUCOSE, BUN, Medica l Branch CREATININE, CA) CBC WITH DIFF 2020-04-28 08:51:00 Becky [facility] [place] MAGNESIUM 2020-04-28 08:51:00 Becky, [facility] [place] BASIC METABOLIC PANEL (NA, 2020-04-28 08:51:00 Becky, [facility] K, CL, CO2, GLUCOSE, BUN, Cathryn Medica l Branch CREATININE, CA) CBC WITH DIFF 2020-04-27 09:34:00 Becky [facility] [place] MAGNESIUM 2020-04-27 09:34:00 Becky, [facility] [place] BASIC METABOLIC PANEL (NA, 2020-04-27 09:34:00 Becky, [facility] K, CL, CO2, GLUCOSE, BUN, Cathryn [facility] CREATININE, CA) CBC WITH DIFF 2020-04-26 09:27:00 Becky [facility] [place] MAGNESIUM 2020-04-26 09:27:00 Becky [facility] [place] BASIC METABOLIC PANEL (NA, 2020-04-26 09:27:00 Becky, [facility] K, CL, CO2, GLUCOSE, BUN, Cathryn [facility] CREATININE, CA) CBC WITH DIFF 2020-04-25 08:59:00 Becky [facility] [place] MAGNESIUM 2020-04-25 08:59:00 Becky, [facility] [place] BASIC METABOLIC PANEL (NA, 2020-04-25 08:59:00 Becky, [facility] K, CL, CO2, GLUCOSE, BUN, Cathryn [facility] CREATININE, CA) CBC WITH DIFF 2020-04-24 09:44:00 [facility] [place] MAGNESIUM 2020-04-24 09:44:00 Becky [facility] [place] BASIC METABOLIC PANEL (NA, 2020-04-24 09:44:00 Becky [facility] K, CL, CO2, GLUCOSE, BUN, Cathryn Medica [facility] Branch CREATININE, CA) CT ABDOMEN PELVIS W 2020-04-23 23:24:02 Grant Cheema, [facility] CONTRAST [facility] CT THORAX W CONTRAST 2020-04-23 23:24:02 Grant Cheema, [facility] COVID-19 (ID NOW RAPID 2020-04-23 15:06:00 Grant Cheema, [facility] TESTING) [facility] PREALBUMIN, SERUM 2020-04-23 13:42:00 Grant Cheema, [facility] POTASSIUM SERUM 2020-04-23 13:42:00 Becky [facility] [place] CBC WITH DIFF 2020-04-23 10:17:00 Becky, [facility] [place] MAGNESIUM 2020-04-23 10:17:00 Becky, [facility] [place] BASIC METABOLIC PANEL (NA, 2020-04-23 10:17:00 Becky [facility] K, CL, CO2, GLUCOSE, BUN, Cathryn [facility]ica [facility] Branch CREATININE, CA) XR CHEST 1 VW 2020-04-23 10:03:00 Becky, [facility] [place] MAGNESIUM 2020-04-22 10:37:00 Becky, [facility] [place] BASIC METABOLIC PANEL (NA, 2020-04-22 10:37:00 Becky, [facility] K, CL, CO2, GLUCOSE, BUN, Cathryn [facility] CREATININE, CA) CBC WITH DIFF 2020-04-22 10:30:00 Becky, [facility] [place] XR CHEST 1 VW 2020-04-22 07:30:00 Becky, [facility] [place] CBC WITH DIFF 2020-04-21 13:09:00 Becky [facility] [place] MAGNESIUM 2020-04-21 13:09:00 Becky [facility] [place] BASIC METABOLIC PANEL (NA, 2020-04-21 13:09:00 Becky [facility] K, CL, CO2, GLUCOSE, BUN, [facility] CREATININE, CA) XR CHEST 1 VW 2020-04-21 06:41:00 Grant Cheema, [facility] XR CHEST 1 VW 2020-04-20 11:03:41 [facility] WITH DIFF 2020-04-20 09:45:00 Katrina [facility] PREALBUMIN, SERUM 2020-04-20 09:45:00 [facility] 2020-04-20 09:45:00 Sabi Srivastava [facility] MAGNESIUM 2020-04-20 09:45:00 Katrina [facility] BASIC METABOLIC PANEL (NA, 2020-04-20 09:45:00 Yosvany Herndon [facility] K, CL, CO2, GLUCOSE, BUN, Medica l Branch CREATININE, CA) XR CHEST 1 VW 2020-04-19 10:13:45 Becky [facility] [place] CBC WITH DIFF 2020-04-19 10:10:00 Katrina [facility] PHOSPHORUS 2020-04-19 10:10:00 Carola [facility] MAGNESIUM 2020-04-19 10:10:00 Katrina [facility] BASIC METABOLIC PANEL (NA, 2020-04-19 10:10:00 Yosvany Herndon [facility] K, CL, CO2, GLUCOSE, BUN, Medica l Branch CREATININE, CA) XR CHEST 1 VW 2020-04-18 11:01:00 Becky [facility] [place] CBC WITH DIFF 2020-04-18 10:19:00 Katrina [facility] PHOSPHORUS 2020-04-18 10:19:00 Carola [facility] MAGNESIUM 2020-04-18 10:19:00 Katrina [facility] BASIC METABOLIC PANEL (NA, 2020-04-18 10:19:00 Katrina Yosvany [facility] K, CL, CO2, GLUCOSE, BUN, Medica l Branch CREATININE, CA) XR CHEST 1 VW 2020-04-17 18:58:00 [facility] [place] CBC WITH DIFF 2020-04-17 09:33:00 Katrina [facility] PHOSPHORUS 2020-04-17 09:33:00 Carola [facility] MAGNESIUM 2020-04-17 09:33:00 Katrina [facility] BASIC METABOLIC PANEL (NA, 2020-04-17 09:33:00 Katrina, [facility] K, CL, CO2, GLUCOSE, BUN, Medica l Branch CREATININE, CA) XR CHEST 1 2020-04-17 08:52:00 Grant Cheema [facility] XR CHEST 1 2020-04-16 23:45[facility] 2020-04-16 21:50:00 Rivera [facility] CULTURE(AEROBIC/ANAEROBIC) [facility] FUNGUS (ROUTINE) CULTURE 2020-04-16 21:50:00 Vance Stafford [facility] CYTO PLEURAL FLUID 2020-04-16 21:50:00 Rivera Vance [facility]DH TOTAL BODY FLUID 2020-04-16 21:50:00 Rivera Vance [facility] AMYLASE BODY FLUID 2020-04-16 21:50:00 Rivera [facility] GLUCOSE BODY FLUID 2020-04-16 21:50:00 Rivera [facility] PH, BODY FLUID 2020-04-16 21:50:00 Rivera [facility] T.PROTEIN BODY FLUID 2020-04-16 21:50:00 Rivera, Vance [facility] BODY FLUID DIRECT COUNT 2020-04-16 21:50:00 Vance Stafford [facility] IR PLEURAL DRAINAGE WITH 2020-04-16 21:36:25 Rosaura Pena [facility] TUBE WITH IMAGING [facility] PROTHROMBIN TIME / INR 2020-04-16 16:07:00 Rosaura Pena [facility] CBC WITH DIFF 2020-04-16 10:07:00 Katrina [facility] PHOSPHORUS 2020-04-16 10:07:00 Carola [facility] MAGNESIUM 2020-04-16 10:07:00 Katrina [facility] BASIC METABOLIC PANEL (NA, 2020-04-16 10:07:00 Yosvany Herndon [facility] K, CL, CO2, GLUCOSE, BUN, Medica l Branch CREATININE, CA) CT ABDOMEN PELVIS W 2020-04-16 07:02:21 Grant Cheema [facility] CBC WITH DIFF 2020-04-15 10:02:00 Katrina [facility] PHOSPHORUS 2020-04-15 10:02:00 Carola [facility] MAGNESIUM 2020-04-15 10:02:00 Katrina [facility] BASIC METABOLIC PANEL (NA, 2020-04-15 10:02:00 Yosvany Herndon [facility] K, CL, CO2, GLUCOSE, BUN, Medica l Branch CREATININE, CA) CBC WITH DIFF 2020-04-14 10:26:00 Katrina [facility] PHOSPHORUS 2020-04-14 10:26:00 [facility] [facility] MAGNESIUM 2020-04-14 10:26:00 [facility] BASIC METABOLIC PANEL (NA, 2020-04-14 10:26:00 Yosvany Herndon [facility] K, CL, CO2, GLUCOSE, BUN, Medica l Branch CREATININE, CA) BASIC METABOLIC PANEL (NA, 2020-04-13 23:53:00 Grant Santana i [facility] K, CL, CO2, GLUCOSE, BUN, Danny Medica l Branch CREATININE, CA) CBC WITHOUT DIFF 2020-04-13 23:53:[address] [facility] IR DRAINAGE BY CATHETER 2020-04-13 20:35:08 Grant Cheema [facility] PERITONEAL OR [facility] RETROPERITONEAL BODY FLUID 2020-04-13 20:05:00 Neris Grier [facility] CULTURE(AEROBIC/ANAEROBIC) Medic al [place] [facility] TOTAL BODY FLUID 2020-04-13 20:05:00 Grant Cheema, [facility] GLUCOSE BODY FLUID 2020-04-13 20:05:00 Grant Cheema [facility] T.PROTEIN BODY FLUID 2020-04-13 20:05:00 Grant Cheema, [facility] BODY FLUID DIRECT COUNT 2020-04-13 20:05:00 Grant Cheema [facility] CBC WITH DIFF 2020-04-13 10:44:00 [facility] PHOSPHORUS 2020-04-13 10:44:00 [facility] 2020-04-13 10:44[facility]00 [facility]OLIC PANEL (NA, 2020-04-13 10:44:00 Yosvany Herndon [facility] K, CL, CO2, GLUCOSE, BUN, Medica l Branch CREATININE, CA) CT ABDOMEN PELVIS W 2020-04-12 21:23:19 Grant Cheema [facility] CONTRAST [facility] URINALYSIS 2020-04-12 20:43:00 Rosaura Pena [facility] URINE CULTURE 2020-04-12 20:43:00 Rosaura Pena [facility] BLOOD CULTURE WORKUP 2020-04-12 18:51:00 Rosaura Pena [facility] GRAM NEGATIVE BLOOD 2020-04-12 18:51:00 Rosaura Pena [facility] PATHOGENS [facility] PROBE-ANAEROBIC BLOOD CULTURE SCREEN 2020-04-12 18:51:00 Rosaura Pena [facility] BLOOD CULTURE SCREEN 2020-04-12 18:50:00 Rosaura Pena [facility] CBC WITH DIFF 2020-04-12 08:46:00 [facility] PHOSPHORUS 2020-04-12 08:46:00 Carola [facility] MAGNESIUM 2020-04-12 08:46:00 [facility] BASIC METABOLIC PANEL (NA, 2020-04-12 08:46:00 [facility], [facility], CO2, GLUCOSE, BUN, Medica l Branch CREATININE, CA) CBC WITH DIFF 2020-04-11 08:54:00 [facility] PHOSPHORUS 2020-04-11 08:54:00 Carola [facility] MAGNESIUM 2020-04-11 08:54:00 [facility] BASIC METABOLIC PANEL (NA, 2020-04-11 08:54:00 [facility], CL, CO2, GLUCOSE, BUN, Medica l Branch CREATININE, CA) CBC WITH DIFF 2020-04-10 09:49:00 [facility] PHOSPHORUS 2020-04-10 09:49:00 Carola [facility] MAGNESIUM 2020-04-10 09:49:00 [facility] XR CHEST 1 VW 2020-04-09 11:27:00 [facility] WITH [facility]FF 2020-04-09 09:07:00 [facility] PHOSPHORUS 2020-04-09 09:07:00 Carola [facility] MAGNESIUM 2020-04-09 09:07:00 [facility] HEPATIC FUNCTION PANEL 2020-04-09 09:07:00 Grant Cheema [facility] ([id number]) (ALB,T.PRO,BILI Danny Medical Branch T,BU/BC,ALT,AST,ALK PHOS) BASIC METABOLIC PANEL (NA, 2020-04-09 09:07:00 Yosvany Herndon [facility] K, CL, CO2, GLUCOSE, BUN, Medica l Branch CREATININE, CA) AC PANEL 20 + LACTIC ACID 2020-04-08 21:11:00 [facility]ATED) 2020-04-08 12:27:00 Bia [facility] AC PANEL 21 + LACTIC ACID 2020-04-08 09:34:00 Bigg [facility] POCT GLUCOSE (AUTOMATED) 2020-04-08 09:33:00 Bia Pedro Uni [facility] CBC WITH DIFF 2020-04-08 09:26:00 [facility] MAGNESIUM 2020-04-08 09:26:00 [facility] BASIC METABOLIC PANEL (NA, 2020-04-08 09:26:00 Yosvany Herndon [facility] K, CL, CO2, GLUCOSE, BUN, Medica l Branch CREATININE, CA) POCT GLUCOSE (AUTOMATED) 2020-04-08 04:24:00 Bia Pedro Uni [facility] POCT GLUCOSE (AUTOMATED) 2020-04-08 00:36:00 Bia Pedro Uni versity [facility] POCT GLUCOSE (AUTOMATED) 2020-04-07 21:24:00 Bia Pedro Uni [facility] POCT GLUCOSE (AUTOMATED) 2020-04-07 16:49:00 [facility]ia [facility] AC PANEL 20 + LACTIC ACID 2020-04-07 14:14:00 [facility] LACTIC ACID WHOLE BLOOD 2020-04-07 13:53:00 Grant Cheema [facility] POCT GLUCOSE (AUTOMATED) 2020-04-07 12:50:00 Bia [facility] AC PANEL 20 + LACTIC ACID 2020-04-07 11:16:00 [facility] MAGNESIUM 2020-04-07 08:48:00 Katrina [facility] BASIC METABOLIC PANEL (NA, 2020-04-07 08:48:00 Y[facility]any Herndon [facility] K, CL, CO2, GLUCOSE, BUN, Medica l Branch CREATININE, CA) CBC WITH DIFF 2020-04-07 08:48:00 [facility] XR CHEST 1 VW 2020-04-07 08:10:00 Becky [facility] [place] POCT GLUCOSE (AUTOMATED) 2020-04-07 04:36:00 Bia Pedro [facility] AC PANEL 21 + LACTIC ACID 2020-04-07 02:05:00 Bigg Lawton [facility] MRSA / MSSA SCREEN BY PCR, 2020-04-07 02:05:00 Grant Santana i [facility] BLOOD CULTURE SCREEN 2020-04-07 02:05:00 Grant Cheema [facility] POCT GLUCOSE (AUTOMATED) 2020-04-07 00:37:00 Bia Pedro [facility] HCV ANTIBODY 2020-04-06 23:44:00 Grant Cheema [facility] POCT GLUCOSE (AUTOMATED) 2020-04-06 23:43:00 Bia Pedro [facility] HIV 1/2 AG-AB WITH REFLEX 2020-04-06 23:30:00 Grant Cheema [facility] POCT GLUCOSE (AUTOMATED) 2020-04-06 22:14:00 Bia Pedro [facility] ECHO ROUTINE W/DOPPLER 2020-04-06 20:25:55 Yosvany Herndon [facility] PROTHROMBIN TIME / INR 2020-04-06 19:00:00 Rosaura Pena [facility] ACTIVATED PARTIAL THRMPLAS 2020-04-06 19:00:[address] [facility] MAGNESIUM 2020-04-06 19:00:00 Becky [facility] [place] BASIC METABOLIC PANEL (NA, 2020-04-06 19:00:00 Becky [facility] K, CL, CO2, GLUCOSE, BUN, [facility] CREATININE, CA) COMP. METABOLIC PANEL 2020-04-06 19:00:00 Yosvany Herndon [facility] ([id number]) Medical [place] CBC WITH DIFF 2020-04-06 19:00:00 Katrina Brooke [facility] AC PANEL 21 + LACTIC ACID 2020-04-06 18:59:00 Simi Dennis [facility] ABG+COOX+NA+K+GLU+CA2+ 2020-04-06 16:06:00 Bia Pedro [facility] INTUBATION 2020-04-06 16:04:59 Ana Syed [facility] XR CHEST 1 VW 2020-04-06 15:43:00 [facility] SURGICAL PATHOLOGY EXAM 2020-04-06 15:12:00 Person, [facility] CENTRAL LINE 2020-04-06 14:52:37 Cynthia Herring [facility] E [facility] ARTERIAL LINE 2020-04-06 14:51:44 Ana Syed [facility] ASPIRATE OR ABSCESS 2020-04-06 14:50:29 Person, [facility] CULTURE(AEROBIC/ANAEROBIC) [facility] [employer] CULTURE 2020-04-06 14:50:29 Person, [facility] FUNGUS (ROUTINE) CULTURE 2020-04-06 14:50:29 Person, [facility] ABG+COOX+NA+K+GLU+CA2+ 2020-04-06 14:46:00 Bia Pedro [facility] HB ABO GROUPING 2020-04-06 14:39:[address] [facility] EXPLORATORY LAPAROTOMY 2020-04-06 13:51:00 PersonZahraaJuventino [facility] URINE CULTURE 2020-04-06 13:48:00 Grant Cheema [facility] XR KUB 2020-04-06 13:34:22 Grant Cheema, [facility] XR CHEST 1 VW 2020-04-06 13:34:22 Grant Cheema, [facility] MAGNESIUM 2020-04-06 11:47:00 Becky [facility] [place] BASIC METABOLIC PANEL (NA, 2020-04-06 11:47:00 Becky [facility] K, CL, CO2, GLUCOSE, BUN, Cathryn [facility] CREATININE, CA) CBC WITH DIFF 2020-04-06 11:47:00 Becky [facility] [place] XR KUB 2020-04-05 21:34:47 Grant Cheema, [facility] XR KUB 2020-04-05 19:41:00 Grant Cheema [facility] MAGNESIUM 2020-04-05 09:44:00 Becky [facility] [place] BASIC METABOLIC PANEL (NA, 2020-04-05 09:44:00 Becky [facility] K, CL, CO2, GLUCOSE, BUN, Cathryn [facility] CREATININE, CA) CBC WITH DIFF 2020-04-05 09:44:00 Becky [facility] [place] MAGNESIUM 2020-04-04 10:09:00 Becky [facility] [place] BASIC METABOLIC PANEL (NA, 2020-04-04 10:09:00 Becky [facility] K, CL, CO2, GLUCOSE, BUN, Cathryn [facility] CREATININE, CA) CBC WITH DIFF 2020-04-04 10:09:00 Becky [facility] [place] SURGICAL PATHOLOGY EXAM 2020-04-03 20:13:00 Bia Pedro [facility] LAPAROSCOPIC COLECTOMY 2020-04-03 15:35:00 Mayela [facility] COLONOSCOPY 2020-04-03 15:35:00 Mayela [facility] COLECTOMY 2020-04-03 15:35:00 Bia Pedro [facility] MAGNESIUM 2020-04-03 09:20:00 Becky [facility] [place] BASIC METABOLIC PANEL (NA, 2020-04-03 09:20:00 Becky [facility] K, CL, CO2, GLUCOSE, BUN, [facility] CREATININE, CA) CBC WITH DIFF 2020-04-03 09:20:00 Becky [facility] [place] HB ABO GROUPING 2020-04-02 22:45:00 Hugo Alfaro [facility] MAGNESIUM 2020-04-02 10:22:00 Becky [facility] [place] BASIC METABOLIC PANEL (NA, 2020-04-02 10:22:00 Becky [facility] K, CL, CO2, GLUCOSE, BUN, [facility] CREATININE, CA) CBC WITH DIFF 2020-04-02 10:22:00 Becky [facility] [place] COVID-19 (ID NOW RAPID 2020-04-01 23:02:00 Becky [facility] TESTING) [facility] URINALYSIS 2020-03-31 11:25:00 Alex Lopez [facility] CT ABDOMEN PELVIS W 2020-03-31 00:17:06 Alex Lopez [facility] CONTRAST [facility] XR CHEST 1 VW 2020-03-30 22:43:49 Alex Lopez [facility] EKG-12 LEAD 2020-03-30 22:14:24 Doctor Unassigned, [facility] [place] [facility] PROTHROMBIN TIME / INR 2020-03-30 22:05:00 Alex [facility] ACTIVATED PARTIAL THRMPLAS 2020-03-30 22:05:00 [facility] N-[facility]MINAL PRO-BNP 2020-03-30 22:05:00 Alex Lopez [facility] LIPASE 2020-03-30 22:05:00 Alex Lopez [facility] TROPONIN I 2020-03-30 22:05:00 Colette [facility] HEPATIC FUNCTION PANEL 2020-03-30 22:05:00 Alex Lopez [facility] ([id number]) (ALB,T.PRO,BILI Medical Branch T,BU/BC,ALT,AST,ALK PHOS) BASIC METABOLIC PANEL (NA, 2020-03-30 22:05:00 Alex Lopez [facility] K, CL, CO2, GLUCOSE, BUN, Medica l [place] CREATININE, CA) CBC WITH DIFF 2020-03-30 22:05:00 Colette [facility] EKG-12 LEAD 2020-03-30 22:01:44 Colette [facility] HOSPITAL ADMISSION 2020-03-30 05:01:00 Doctor Unassigned, [facility] [place] [facility] MAGNESIUM 2020-03-26 09:57:00 Simin [facility] BASIC METABOLIC PANEL (NA, 2020-03-26 09:57:00 Simin [facility] K, CL, CO2, GLUCOSE, [facility]UN, [facility] CREATININE, CA) CBC WITH DIFF 2020-03-26 09:57:00 Simin [facility] LACTIC ACID WHOLE BLOOD 2020-03-26 04:09:00 Sarah Duval [facility] COVID-19 (ID NOW RAPID 2020-03-26 02:01:00 Bernardo Donnelly [facility] TESTING) [facility] CT ABDOMEN PELVIS W 2020-03-26 01:17:18 Bernardo Donnelly [facility] CONTRAST Medical Branch PHOSPHORUS 2020-03-26 00:39:00 Simin [facility] MAGNESIUM 2020-03-26 00:39:00 Simin [facility] HEPATIC FUNCTION PANEL 2020-03-26 00:39:00 Bernardo Donnelly [facility] ([id number]) (ALB,T.PRO,BILI Medical Branch T,BU/BC,ALT,AST,ALK PHOS) BASIC METABOLIC PANEL (NA, 2020-03-26 00:39:00 Bernardo Donnelly [facility] K, CL, CO2, GLUCOSE, BUN, Medica l Branch CREATININE, CA) CBC WITH DIFF 2020-03-26 00:39:00 [facility] EXTRA TUBE LT. BLUE 2020-03-26 00:39:00 Bernardo Donnelly [facility] HOSPITAL ADMISSION 2020-03-25 05:01:00 Doctor Unassigned, [facility] [place] [facility] PROTHROMBIN TIME / INR 2020-03-03 04:27:00 Ori Persaud [facility] ACTIVATED PARTIAL THRMPLAS 2020-03-03 04:27:00 [facility] ABDOMEN ACUTE SERIES 2020-03-03 02:15:00 Shy [facility] PHOSPHORUS 2020-03-03 01:22:00 Ori Persaud [facility] MAGNESIUM 2020-03-03 01:22:00 Burt Avendaño [facility] HEPATIC FUNCTION PANEL 2020-03-03 01:22:00 Shy [facility] ([id number]) ([facility] T,BU/BC,ALT,AST,ALK PHOS) BASIC METABOLIC PANEL (NA, 2020-03-03 01:22:00 Sabi Begum [facility] K, CL, CO2, GLUCOSE, BUN, Medica l Branch CREATININE, CA) CBC WITH DIFFERENTIAL 2020-03-03 01:22:00 Sabi Begum [facility] URINALYSIS 2020-03-03 01:22:00 Shy [facility] LACTIC ACID WHOLE BLOOD 2020-03-03 01:22:00 Shy [facility] COVID-19 (ID NOW RAPID 2020-03-03 01:22:00 Shy [facility] TESTING) [facility] GALV/CLC ONLY - URINE DRUG 2020-02-27 20:02:00 Shana [facility] (IMMUNOASSAY) - [facility] COMPREHENSIVE DRUG SCREEN FREE T4 2020-02-27 17:48:00 [facility] THYROID STIMULATING 2020-02-27 17:48:00 Shana [facility] HORMONE [facility] FREE T3 2020-02-27 17:48:00 [facility] CT ABDOMEN PELVIS W 2020-02-26 18:27:28 Alondra Fay [facility] CONTRAST [facility] COVID-19 (ID NOW RAPID 2020-02-26 06:41:00 Shy [facility] TESTING) Medical Branch XR ABDOMEN ACUTE SERIES 2020-02-26 04:48:30 Shy [facility] LIPASE 2020-02-26 03:35:00 Begum, [facility] HEPATIC FUNCTION PANEL 2020-02-26 03:35:00 Begum, [facility] ([id number]) ([facility] T,BU/BC,ALT,AST,ALK PHOS) BASIC METABOLIC PANEL (NA, 2020-02-26 03:35:00 Sabi Begum [facility] K, CL, CO2, GLUCOSE, BUN, Medica l Branch CREATININE, CA) CBC WITH DIFFERENTIAL 2020-02-26 03:35:00 Shy [facility] LACTIC ACID WHOLE BLOOD 2020-02-26 03:35:00 Shy [facility] EXTRA TUBE LT. BLUE 2020-02-26 03:35:00 Shy [facility] MAGNESIUM 2020-02-03 16:38:00 [facility] BASIC METABOLIC PANEL (NA, 2020-02-03 16:38:00 [facility], CL, CO2, GLUCOSE, BUN, Medica l Branch CREATININE, CA) XR KUB 2020-01-31 16:59:00 Helene Griffin [facility] BASIC METABOLIC PANEL (NA, 2020-01-31 06:15:00 Kirill Henson [facility] K, CL, CO2, GLUCOSE, BUN, Medica l Branch CREATININE, CA) CBC WITH DIFFERENTIAL 2020-01-31 06:15:00 Kirill Henson [facility] BASIC METABOLIC PANEL (NA, 2020-01-29 10:06:00 [facility], CL, CO2, GLUCOSE, BUN, Medica l Branch CREATININE, CA) CBC WITH DIFFERENTIAL 2020-01-29 10:06:00 Judith Ingram [facility] COVID-19 (PCR MOLECULAR 2020-01-29 03:56:00 Liz [facility] TESTING) Medical Branch LACTIC ACID WHOLE BLOOD 2020-01-29 03:55:00 Bernardo Donnelly [facility] EXTRA TUBE LAV 2020-01-29 03:55:00 Liz [facility] EXTRA TUBE LT. BLUE 2020-01-29 03:55:00 Liz [facility] EXTRA TUBE LT. GREEN 2020-01-29 03:55:00 Liz [facility] URINALYSIS 2020-01-29 01:35:00 Silvia Jurado I [facility] COVID-19 (ID NOW RAPID 2020-01-29 01:32:00 Bernardo Donnelly [facility] TESTING) Medical Branch CT ABDOMEN PELVIS W 2020-01-28 23:53:23 Silvia Jurado I [facility] CONTRAST [facility] LIPASE 2020-01-28 23:19:00 Silvia Jurado I [facility] HEPATIC FUNCTION PANEL 2020-01-28 23:19:00 JuradoSilvia [facility] ([id number]) ([facility] T,BU/BC,ALT,AST,ALK PHOS) BASIC METABOLIC PANEL (NA, 2020-01-28 23:19:00 Sondra Jurado I [facility] K, CL, CO2, GLUCOSE, BUN, Medica l Branch CREATININE, CA) CBC WITH DIFFERENTIAL 2020-01-28 23:19:00 Silvia Jurado I [facility] HOSPITAL ADMISSION 2020-01-28 05:01:00 Doctor Unassigned, [facility] [place] [facility] BASIC METABOLIC PANEL (NA, 2020-01-26 18:06:00 [facility], CL, CO2, GLUCOSE, BUN, Medica l Branch CREATININE, CA) MAGNESIUM 2020-01-26 08:17:00 Liz [facility] XR KUB 2020-01-26 06:00:[address] [facility] PHOSPHORUS 2020-01-25 09:43:00 Liz [facility] COVID-19 (ID NOW RAPID 2020-01-25 04:31:00 Shy [facility] TESTING) [facility] LACTIC ACID WHOLE BLOOD 2020-01-25 04:27:00 Shy [facility] CT ABDOMEN PELVIS W 2020-01-25 02:15:22 Shy [facility] CONTRAST [facility] URINALYSIS 2020-01-25 01:05:00 Shy [facility] LIPASE 2020-01-25 00:42:00 Begum, [facility] HEPATIC FUNCTION PANEL 2020-01-25 00:42:00 Shy [facility] ([id number]) (ALB,T.PRO,BILI [facility] T,BU/BC,ALT,AST,ALK PHOS) BASIC METABOLIC PANEL (NA, 2020-01-25 00:42:00 Sabi Begum [facility] K, CL, CO2, GLUCOSE, BUN, Medica l Branch CREATININE, CA) CBC WITH DIFFERENTIAL 2020-01-25 00:42:00 Shy [facility] [id number] 2020-01-09 00:00:[address] [place] [address] EXTERNAL PROVIDER RECORDS 2019-12-28 05:01:00 Doctor Unassigned, [facility] [place] [facility] Plan of Care Planned Activity Planned Date Details Comments Source Future Scheduled 2029-03-23 Screening for malignant [facility] Test 00:00:00 neoplasm of colon Medical Ce nter (procedure) [code = 306999271] Future Scheduled 2029-03-23 Screening for malignant [facility] Test 00:00:00 neoplasm of colon Medical Ce [facility]ter (procedure) [code = 812443846] Future Scheduled 2029-03-23 Screening for malignant [facility] Test 00:00:00 neoplasm of colon Medical Ce nter (procedure) [code = 922527964] Future Scheduled 2029-03-23 Screening for malignant [facility] Test 00:00:00 neoplasm of colon Medical Ce nter (procedure) [code = 500408526] Future Scheduled 2029-03-23 Screening for malignant [facility] Test 00:00:00 neoplasm of colon Medical Ce nter (procedure) [code = 092141239] Future Scheduled 2029-03-23 Screening for malignant [facility] Test 00:00:00 neoplasm of colon Medical Ce nter (procedure) [code = 277584891] Future Scheduled 2029-03-23 Screening for malignant [facility] Test 00:00:00 neoplasm of colon Medical Ce nter (procedure) [code = 953760177] Future Scheduled 2029-03-23 Screening for malignant [facility] Test 00:00:00 neoplasm of colon Medical Ce nter (procedure) [code = 740022749] Future Scheduled 2029-03-23 Screening for malignant [facility] Test 00:00:00 neoplasm of colon Medical Ce nter (procedure) [code = 988925654] Future Scheduled 2029-03-23 Screening for malignant [facility] Test 00:00:00 neoplasm of colon Medical Ce nter (procedure) [code = 687427431] Future Scheduled 2029-03-23 Screening for malignant [facility] Test 00:00:00 neoplasm of colon Medical Ce nter (procedure) [code = 823003782] Future Scheduled 2022-05-24 IMM Influenza Seasonal H [...] 00:00:00 neoplasm of colon (procedure) [code = 408172043] Future Scheduled 2020-02-14 Screening for malignant [facility] Test 00:00:00 neoplasm of colon (procedure) [code = 245955248] Future Scheduled 2020-02-14 Screening for malignant [facility] Test 00:00:00 neoplasm of colon (procedure) [code = 834428307] Future Scheduled 2020-02-14 SHINGLES VACCINES (1 of [...] [facility] Test 00:00:00 [code = 64395627] Medical Ce nter Future Scheduled 2005 Lipid panel (procedure) [facility] Test 00:00:00 [code = 14112366] Medical Ce nter Future Scheduled 2005 Lipid panel (procedure) [facility] Test 00:00:00 [code = 18797574] Medical Ce nter Future Scheduled 2005 Lipid panel (procedure) [facility] Test 00:00:00 [code = 30306621] Medical Ce nter Future Scheduled 2005 Lipid panel (procedure) [facility] Test 00:00:00 [code = 63807763] Medical Ce nter Future Scheduled 2005 Lipid panel (procedure) [facility] Test 00:00:00 [code = 18134353] Medical Ce nter Future Scheduled 1989 DTAP/TDAP/TD [...] Test 00:00:00 [code = CT Colonography [facility] (combo)] Future Scheduled 1970 Screening for malignant [facility] Test 00:00:00 neoplasm of colon Medical Ce nter (procedure) [code = 567920206] Future Scheduled 1970 Screening for malignant [facility] Test 00:00:00 neoplasm of colon Medical Ce nter (procedure) [code = 800206359] Future Scheduled 1970 Sigmoidoscopy [code = CH [...] colon Medical Ce nter (procedure) [code = 394634246] Future Scheduled 1970 Screening for malignant [facility] Test 00:00:00 neoplasm of colon Medical Ce nter (procedure) [code = 001020766] Future Scheduled 1970 Sigmoidoscopy [code = [facility]] Medical Cente r Future Scheduled 1970 CT Colonography (combo) [facility] Test 00:00:00 [code = CT [facility] Future Scheduled 1970 Screening for malignant [facility] Test 00:00:00 neoplasm of colon Medical Ce nter (procedure) [code = 939055827] Future Scheduled 1970 Screening for malignant [facility] Test 00:00:00 neoplasm of colon Medical Ce nter (procedure) [code = 208761140] Future Scheduled 1970 Sigmoidoscopy [code = [facility] S[facility]oidoscopy] Medical [place] r Future Scheduled 1970 CT Colonography (combo) [facility] Test 00:00:00 [code = CT Colonography [facility] (combo)] Future Scheduled 1970 Screening for malignant [facility] Test 00:00:00 neoplasm of colon Medical Ce nter (procedure) [code = 761507880] Future Scheduled 1970 Screening for malignant [facility] Test 00:00:00 neoplasm of colon Medical Ce nter (procedure) [code = 575074472] Future Scheduled 1970 Sigmoidoscopy [code = [facility]:00 Sigmoidoscopy] Medical [facility] r Future Scheduled 1970 CT Colonography (combo) [facility] Test 00:00:00 [code = CT Colonography [facility]i [facility] (combo)] Future Scheduled 1970 Screening for malignant [facility] Test 00:00:00 neoplasm of colon Medical Ce nter (procedure) [code = 369207127] Future Scheduled 1970 Screening for malignant [facility] Test 00:00:00 neoplasm of colon Medical Ce nter (procedure) [code = 585392690] Future Scheduled 1970 Sigmoidoscopy [facility]code [facility] S[facility]oscopy] Medical Angele r Future Scheduled 1970 CT Colonography (combo) [facility] 00:[facility] [code = CT Colonography [facility] (combo)] Encounters Start End Encounter Admission Attending Care Care Encounter Source Date/Time Date/Time Type Type Clinicians Facility Department ID 2021-06-[address] [facility] [id number] Univers 05:25:[address] [facility] 2021-06-[address] [facility] [id number] Univers 01:41:[address] [facility] 2021-06-[address] [facility] [id number] Univers 22:38:[address] [facility] 2021-06-[address] [facility] [id number] Univers 21:40:[address] [facility] 2021-06-[address] [facility] [id number] Univers 13:55:[address] [facility] 2021-06-[address] [facility] [id number] Univers 05:54:[address] [facility] 2021-06-[address] [facility] [id number] Univers 22:33:[address] [facility] 2021-06-[address] [facility] [id number] Univers 22:33:[address] [facility] 2021-06-[address] [facility] [id number] Univers 22:22:[address] [facility] 2021-06-[address] [facility] [id number] Univers 20:04:[address] [facility] 2021-06-[address] [facility] [id number] Univers 19:53:[address] [facility] 2021-06-[address] [facility] [id number] Univers 19:37:[address] [facility] 2021-06-[address] [facility] [id number] Univers 19:36:[address] [facility] 2021-06-[address] [facility] [id number] Univers 17:11:[address] [facility] 2021-06-[address] [facility] [id number] Univers 16:44:[address] [facility] 2021-06-[address] [facility] [id number] Univers 11:19:[address] [facility] 2021-06-[address] [facility] [id number] Univers 10:16:[address] [facility] 2021-06-[address] [facility] [id number] Univers 06:08:[address] [facility] 2021-06-[address] [facility] [id number] Univers 04:43:[address] [facility] 2021-06-[address] [facility] [id number] Univers 04:42:[address] [facility] 2021-06-20 Emergency [facility] PAKO [id number] Univers 18:31:02 O[address]AR [address] of [facility] 2020-02-23 Inpatient HCAPM LENNY [id number] [facility] 18:42:00 89 [facility] 2020-02-17 Inpatient SEAN Nova, HCAPM BRET [id number] [facility] 00:22:00 Oladipo 75 [facility] 2020-01-05 Inpatient MORIS Perea, HCAPM MEDI.01 [id number] [facility] 20:23:00 Mark 40 [facility] 2019-12-13 Inpatient HCAMN JULIA [id number] [facility] 17:52:00 47 [facility] 2022-04-14 2022-04-14 Transition MELANIE Valdes 1.2.840.114 [id number] Univers 00:00:00 00:00:00 of Care Miryam TRINIDADY 350.1.13.10 it [place] of [place] [id number] [facility] [address] 2022-04-09 2022-04-10 Emergency X [facility] ERT [id number] Univers 20:38:00 00:14:00 ALVAREZ dawny of [facility] 2022-04-09 2022-04-10 Emergency [facility] 1.2.840.114 [id number] Univers 20:38:00 00:14:00 Alvarez OROPEZA 350.1.13.10 ity of [place] [id number] [facility] 084 Branch 2022-04-09 2022-04-09 Transition MELANIE Valdes 1.2.840.114 [id number] Univers 00:00:00 00:00:00 of Care Miryam TRINIDADY 350.1.13.10 [place] [id number] [facility] [address] 2022-04-02 2022-04-08 Inpatient X ABU [facility] URI [id number] Univers 11:42:00 12:30:[address] [facility] 2022-04-02 2022-04-08 [facility] Rekha Sheehan [facility] 1.2.840.11 [id number] Univers 11:42:00 12:30:00 Encounter [place] [facility] 350.1.13.10 ity of [place] 4.2.7.2.686 [place] [id number] ([facility]) 2022-03-29 2022-03-29 Emergency EM Bridgett, JEO AERS [id number] [facility] 14:26:00 16:45:00 Sabi 28 [facility] 2022-03-29 2022-03-29 Emergency EM Bridgett, MASONCL HCACL [id number] [facility] 14:26:00 16:45:00 Sabi [id number] [facility] 2022-03-25 2022-03-26 Inpatient E RICHARD [facility] MED [id number] [address] 13:38:00 10:16:00 , YESSI 2022-03-15 2022-03-18 Emergency E RADHA, [facility] 7502 [facility] 13:36:00 18:59:00 NELSON 2022-03-13 2022-03-13 Emergency [facility] [id number] [place] 15:33:00 20:25:00 [facility] 2022-03-13 2022-03-13 Outpatient RONALD, [facility] [id number] [place] 00:00:00 00:00:00 [facility] 2022-03-06 2022-03-09 [facility] [id number] 12:16:00 12:55:00 Encounter Norma Montalvo Fang-Ying M edical Heinen, [facility] [place] Leonidas Joyner 2022-03-06 2022-03-09 Inpatient ER LEONIDAS JOYNER [facility] Emergency 20 [id number] [facility] 12:16:00 12:55:00 2022-03-06 2022-03-09 [facility] [id number] 12:16:00 12:55:00 Encounter Norma Montalvo Fang-Ying M edical Heinen, [facility] [place] Leonidas Joyner Colin 2022-03-06 2022-03-06 Outpatient [facility] [id number] [facility] 00:00:00 23:59:00 Heliohiral Maryannger gordon 2022-03-06 2022-03-06 Orders [facility] [id number] 00:00:00 00:00:00 Only [facility] 2022-03-06 2022-03-06 Travel [facility] [id number] [facility] 00:[facility]00 00:00:00 [facility] 2022-03-06 2022-03-06 Orders [facility] [id number] 00:00:00 00:00:00 Only [facility] 2022-03-06 2022-03-06 Travel [facility] [id number] [facility] 00:[facility]:00 00:00:00 [facility] 2022-02-18 2022-02-20 Emergency Mitzi Carbajal [facility] [id number] [place] 13:58:00 11:55:00 [facility] Fannie Blake 2022-02-18 2022-02-18 Emergency [facility] [id number] [place] 15:19:05 15:23:18 [facility] 2022-02-18 2022-02-18 Outpatient 1 TEJAS [facility] [id number] [place] 13:58:00 13:58:00 [facility] 2022-02-18 2022-02-18 Outpatient DENIZ [facility] [id number] [place] 00:00:00 00:00:00 , OSCAR Daniels h 2022-02-07 2022-02-11 [facility] [id number] [place] 13:40:00 13:22:00 Encounter Daily Islas [facility] Teresa Alves 2022-02-07 2022-02-07 Outpatient 1 DAILY ISLAS [facility] [id number] [place] 13:40:00 13:40:00 [facility] 2022-01-30 2022-01-30 Emergency SEAN Pacheco [facility] [id number] [facility] 17:02:00 18:29:00 Dwain Scanlon [facility] 2022-01-30 2022-01-30 Emergency EM Tara, [facility] [id number] [facility] 17:02:00 18:29:00 Dwain Ortiz [facility] 2022-01-22 2022-01-22 Emergency [facility] [id number] Lynne 17:24:00 20:39:00 [facility] 2022-01-16 2022-01-21 Emergency Raymon Martin [facility] [id number] Lynne 11:04:00 18:08:00 Karin Bassett [facility] Sushil Craig Parth P 2022-01-19 2022-01-19 Outpatient [facility] [id number] [place] 12:34:08 13:29:31 [facility] 2022-01-16 2022-01-16 Outpatient [facility] [id number] [place] 19:42:28 20:01:28 [facility] 2022-01-16 2022-01-16 Outpatient 1 DANYELLE [facility] [id number] [place] 11:04:00 11:04:00 KARIN Daniels 2022-01-10 2022-01-11 Emergency Bert Reed [facility] [id number] [place] 10:58:00 11:20:[address] [facility] Merissa Richards 2022-01-10 2022-01-10 Outpatient 1 JUSTIN [facility] [id number] [place] 10:58:00 10:58:00 [facility] 2022-01-08 2022-01-09 Emergency [facility] [id number] [place] 17:57:00 02:50:00 [facility] 2022-01-08 2022-01-08 Emergency [facility] [id number] [place] 21:40:34 21:50:19 [facility] 2021-09-23 2021-09-23 Emergency EM Quintin Leviian [facility] AERS [id number] [facility] 19:35:00 21:10:00 74 [facility] 2021-09-13 2021-09-13 Emergency X ROSHAN RAMOS [facility] [id number] Univers 21:20:00 22:36:00 [facility] 2021-09-13 2021-09-13 Emergency Harkey, [facility] 1.2.922.610 [id number] Univers 21:20:00 22:36:00 Mickey Escoto [facility] 350.1.13.10 it y of [place] [id number] [address] ([facility]) 2021-09-13 2021-09-13 Emergency EM Raffaele Levi HCACL AERS [id number] [facility] 14:57:00 16:37:00 06 [facility] 2021-09-12 2021-09-12 Emergency X MORRICAL, [facility] ERT [id number] Univers 14:25:00 17:51:[address] [facility] 2021-09-12 2021-09-12 Emergency Morrical, TRAUMA 1.2.840.114 [id number] Univers 14:25:00 17:51:00 Dwain Palacio CENTER 350.1.13.10 [place] [id number] [address] 2021-09-12 2021-09-12 Emergency [facility] ERT [id number] Univers 06:20:00 10:10:[address] [facility] 2021-09-12 2021-09-12 Emergency Alona Carty [place] 1.2.840 .114 [id number] Univers 06:20:00 10:10:00 Constantin Concepcion GREELEY 350.1.13.10 [place] [id number] [address] 2021-09-08 2021-09-09 Emergency X YINA, [facility] ERT [id number] Univers 23:01:00 01:30:[address] [facility] 2021-09-08 2021-09-09 Emergency Pacheco, TRAUMA 1.2.118.809 [id number] Univers 23:01:00 01:30:00 Sebastian Jessica CENTER 350.1.13.10 [place] [id number] [address] 2021-09-072021-09-07 Emergency [facility] ERT [id number] Univers 19:24:00 23:44:00 SEBASTIAN ity of [facility] 2021-09-07 2021-09-07 Emergency Pacheco, TRAUMA 1.2.231.438 [id number] Univers 19:24:00 23:44:00 Sebastian L [place] 350.1.13.10 [place] [id number] [facility] 014 Branch 2021-09-06 2021-09-06 Emergency X [facility] ERT [id number] Univers 15:35:00 17:52:00 SEBASTIAN ity of [facility] 2021-09-06 2021-09-06 Emergency Pacheco, TRAUMA 1.2.488.407 [id number] Univers 15:35:00 17:52:00 Sebastian Lopez [place] 350.1.13.10 [place] [id number] [facility] 014 Branch 2021-09-06 2021-09-06 Transition MELANIE Vallejo 1.2.840.114 [id number] Univers 00:00:00 00:00:00 of Care Emili RECINOS 350.1.13.10 ity of [place] [id number] [facility] 403 [address] 2021-08-30 2021-09-05 Inpatient X [facility] PAKO [id number] Univers 16:53:00 16:00:[address] [facility] 2021-08-30 2021-09-05 Hospital Gayatri Gu 1 .2.840.114 [id number] Univers 16:53:00 16:00:00 Encounter Sophia Andrea 350.1 .13.10 ity of [facility] 4.2.7.2.686 [facility] [id number] Medical 097 Branch 2021-09-03 2021-09-03 Surgery [facility] ABILIO 1.2.840.114 [id number] Univers 07:15:00 10:04:00 MAGGY 350.1.13.10 it y of [facility] 4.2.7.2.686 Javi as [id number] [facility] 103 [address] 2021-08-29 2021-08-29 Emergency X IBLUCY, [facility] ERT [id number] Univers 17:15:00 20:03:00 FOLUSHO ity of [facility] 2021-08-29 2021-08-29 Emergency Ibikunle, TRAUMA 1.2.840.114 [id number] Univers 17:15:00 20:03:00 [facility] 350.1.13.10 [place] [id number] [facility] 014 Branch 2021-07-29 2021-08-05 Inpatient X [facility] PAKO [id number] Univers 20:15:00 07:43:[address] [facility] 2021-07-29 2021-08-05 [facility] Jonah Rees 1.2.840.1 [id number] Univers 20:15:00 07:43:00 Encounter Karin Myers 350.1.13.1 0 ity of [facility] 4.2.7.2.686 [place] [id number] [facility] 091 Branch 2021-07-29 2021-07-29 Transition MELANIE Vallejo 1.2.840.114 [id number] Univers 00:00:00 00:00:00 of Care Emili RECINOS 350.1.13.10 [place] [id number] [facility] 403 [address] 2021-07-27 2021-07-27 Emergency EM Kateryna, HCAMN JULIA [id number] [facility] 10:15:00 12:36:00 Juan Jose [address] [place] [address] 2021-07-23 2021-07-26 Inpatient X [facility] PAKO [id number] Univers 00:39:00 14:50:[address] [facility] 2021-07-23 2021-07-26 [facility] Sabi Schultz 1.2.840 .114 [id number] Univers 00:39:00 14:50:00 Encounter Bia Pedro 350.1.13.10 ity of HOSPITAL 4.2.7.2.686 Javi as [id number] [facility] 093 Branch 2021-07-22 2021-07-22 Emergency EM Marcelina, HCACL AERS [id number] [facility] 04:25:00 08:20:00 Tarrell 74 [facility] 2021-06-27 2021-06-27 Emergency EM White, [facility] [id number] [facility] 15:31:00 17:37:00 Sabi Pollard [facility] 2021-06-25 2021-06-25 Orders Doctor BERNARDO 1.2.840.114 [id number] [facility] 00:00:00 00:00:00 Only Unassigned, MAGGY 350.1.13.10 ity of [place] [facility] 4.2.7.2.686 Javi as [id number] [facility] 009 Branch 2021-05-31 2021-06-04 Emergency Willie Garrett [facility] 1.2.840.1 [id number] Univers 17:10:00 16:38:00 Clementine [facility] 350.1.13.10 ity of Sabi Gann 4.2.7.2.686 [place] Tamika Lyle Bhat[place] [id number] [address] ([facility]) 2021-05-20 2021-05-21 Emergency Bernardo Donnelly [facility] 1.2.840.114 [id number] Univers 14:29:00 17:10:00 NaylorScott silva Health 350.1.13.10 ity [place] [id number] [address] ([facility]) 2021-05-10 2021-05-10 Transition Melanie Vallejo 1.2.840.114 [id number] Univers 00:00:00 00:00:00 of Care Emililaurel Recinos 350.1.13.10 ity of [place] [id number] [facility] 403 [address] 2021-05-07 2021-05-09 Hospital Alona Pérez [facility] 1.2.840.11 [id number] Univers 19:23:00 15:26:00 Encounter Diogo [facility] 350.1.13. 10 ity of NeelAbad martin [place] 4.2.7.2.686 [place] Bhatt [id number] [facility] [address] ([facility]) 2021-04-28 2021-05-01 Inpatient SEAN Leonard, [facility] [id number] [facility] 21:05:00 14:18:00 Christopher 03 Cl [facility] 2020-09-26 2020-09-26 Emergency Jose [facility] 1.2.515.952 [id number] Univers 16:56:00 23:00:00 Mariaelena Oropeza 350.1.13.10 i ty of [place] [id number] [facility] 084 Branch 2020-08-22 2020-08-24 Emergency Funmilayo Pinzon [facility] 1.2.8 40.114 [id number] Univers 15:31:00 14:20:00 SweeneyBart malik Health 350.1.13.10 ity of Ori [place]aud [place] 4.2.7.2.686 [place] Bhat[place] [id number] [facility] [address] ([facility]) 2020-07-09 2020-07-09 Emergency Chrisi [facility] 1.2.840.114 [id number] Univers 16:23:00 19:43:00 , Juan M Health 350.1.13.10 [place] [id number] [facility] 014 Branch ([facility]) 2020-06-15 2020-06-15 Patient Saira Goodman 1.2.840.114 [id number] Univers 00:00:00 00:00:00 Outreach E Recinos 350.1.13.10 i ty of [place] [id number] [facility] 403 [address] 2020-06-12 2020-06-12 Patient Saira Goodman 1.2.840.114 [id number] Univers 00:00:00 00:00:00 Outreach E Recinos 350.1.13.10 i ty [place] [id number] [facility] 403 [address] 2020-06-08 2020-06-08 Patient Melanie Emanuel 1.2.840.114 [id number] Univers 00:00:00 00:00:00 Outreach Mela Arvizu Recinos 350.1.13.10 it[place] [id number] [address] 2020-06-07 2020-06-07 Patient Saira Goodman 1.2.840.114 [id number] Univers 00:00:00 00:00:00 Outreach E Recinos 350.1.13.10 i ty of [place] [id number] [facility] [address] [place] 2020-06-05 2020-06-05 Emergency [facility] 1.2.840.114 [id number] Univers 06:47:00 10:55:00 More Oropeza 350.1.13.10 ity of [place].2.[place] [id number] [facility] 084 Branch 2020-06-04 2020-06-04 Emergency [facility] 1.2.353.686 [id number] Univers 10:36:00 13:38:00 [facility] 350.1.13.10 it [place] [id number] [facility] 014 Branch ([facility]) 2020-06-04 2020-06-04 Patient Saira Goodman 1.2.840.114 [id number] Univers 00:00:00 00:00:00 Outreach E Recinos 350.1.13.10 i [place] [id number] [address] 2020-06-04 2020-06-04 Patient Melanie Emanuel 1.2.840.114 [id number] Univers 00:00:00 00:00:00 Outreach Mela Arvizu Recinos 350.1.13.10 it[place] [id number] [address] 2020-06-01 2020-06-01 Transition Melanie Vallejo 1.2.840.114 [id number] Univers 00:00:00 00:00:00 of Care Emili Trinidady 350.1.13.10 ity of [place] [id number] [address] 2020-05-22 2020-05-31 [facility] Alex Lopez 1.2.840.11 [id number] Univers 14:42:00 18:40:00 Encounter Bia Pedro Maggy 350.1.13.10 ity of [facility] 4.2.7.2.686 Javi as [id number] [address] 2020-05-31 2020-05-31 Patient Saira Goodman Melanie 1.2.840.114 [id number] Univers 00:00:00 00:00:00 Outreach E Recinos 350.1.13.10 [place] [id number] [address] 2020-05-23 2020-05-[address] [facility] [id number] Univers 10:00:00 10:00:00 [id number] ity of [facility] 2020-05-23 2020-05-23 Patient Saira Goodmaneddie 1.2.840.114 [id number] Univers 00:00:00 00:00:00 Outreach E Recinos 350.1.13.10 [place] [id number] [address] 2020-05-23 2020-05-23 Patient Saira Goodman Melanie 1.2.840.114 [id number] Univers 00:00:00 00:00:00 Outreach E Recinos 350.1.13.10 i ty [place] [id number] [address] 2020-05-23 2020-05-23 Patient Melanie Emanuel 1.2.840.114 [id number] Univers 00:00:00 00:00:00 Outreach Mela Arvizu Recinos 350.1.13.10 it[place] [id number] [address] 2020-05-21 2020-05-21 Emergency Donnelly, [facility] 1.2.851.055 [id number] Univers 20:52:00 23:41:00 [facility] 350.1.13.10 it [place] [id number] [address] ([facility]) 2020-05-20 2020-05-20 Emergency Unknown, TRAUMA 1.2.840.114 [id number] Univers 07:04:00 15:13:00 Attending CENTER 350.1.13.10 [place] [id number] [address] 2020-05-19 2020-05-20 Emergency [facility], [facility] 1.2.840.114 [id number] Univers 21:29:00 06:12:00 [facility] 350.1.13.10 it y [place]2.[place] [id number] [address] ([facility]) 2020-05-18 2020-05-18 Patient Saira Goodman 1.2.840.114 [id number] Univers 10:18:59 11:28:59 Outreach Heidi Recinos 350.1.13.10 i ty [place] [id number] [address] 2020-05-18 2020-05-[address] [facility] [id number] Univers 09:30:00 09:30:00 [id number] ity of [facility] 2020-05-18 2020-05-18 Patient Melanie Emanuel 1.2.840.114 [id number] Univers 00:00:00 00:00:00 Outreach Mela Arvizu Bacilio 350.1.13.10 [place] [id number] [address] 2020-05-17 2020-05-[address] [facility] [id number] Univers 10:00:00 10:00:00 [id number] ity of [facility] 2020-05-17 2020-05-17 Patient Saira Goodman Melanie 1.2.840.114 [id number] Univers 00:00:00 00:00:00 Outreach E Recinos 350.1.13.10 [place] [id number] [address] 2020-05-17 2020-05-17 Patient Melanie Emanuel 1.2.840.114 [id number] Univers 00:00:00 00:00:00 Outreach Mela W Recinos 350.1.13.10 it[place] [id number] [address] 2020-05-15 2020-05-15 Patient JenaeMelanie [place] 1.2.840.114 [id number] Univers 00:00:00 00:00:00 Outreach Mela Arvizu Recinos 350.1.13.10 it[place] of [place] [id number] [address] 2020-05-14 2020-05-14 Transition Melanie Vallejo 1.2.840.114 [id number] Univers 00:00:00 00:00:00 of Care Emili Trinidady 350.1.13.10 it[place] of [place] [id number] [address] 2020-05-04 2020-05-12 [facility] Lora Hall 1.2. 840.114 [id number] Univers 21:09: 14:03:00 Encounter Carol Ann Jason 350.1.13.10 ity of [facility] 4.2.7.2.686 Javi as [id number] [address] 2020-05-10 2020-05-10 Patient Saira Goodman Melanie 1.2.840.114 [id number] Univers 00:00:00 00:00:00 Outreach E Recinos 350.1.13.10 [place] [id number] [address] 2020-05-09 2020-05-09 Transition Melanie Vallejo 1.2.840.114 [id number] Univers 00:00:00 00:00:00 of Care Emili Recinos 350.1.13.10 [place] [phone] [address] 2020-05-08 2020-05-08 Patient Saira Goodman 1.2.840.114 [id number] Univers 00:00:00 00:00:00 Outreach E Recinos 350.1.13.10 [place] [id number] [address] 2020-05-02 2020-05-03 Emergency [facility], [facility] [id number] Univers 23:37:00 01:53:00 Joel S [place] 350.1.13.10 [place] [phone] [facility] [address] 2020-05-03 2020-05-03 Patient Saira Goodman 1.2.840.114 [id number] Univers 00:00:00 00:00:00 Outreach E Recinos 350.1.13.10 [place] [phone] [address] 2020-05-03 2020-05-03 Transition Melanie Vallejo 1.2.840.114 [id number] Univers 00:00:00 00:00:00 of Care Emili Recinos 350.1.13.10 [place] [phone] [address] 2020-03-30 2020-05-02 Hospital Alex Lopez 1.2.840.11 [id number] Univers 16:55:00 16:45:00 Encounter Diogo Keane 350.1.13. 10 ity of [facility] 4.2.7.2.686 [place] [phone] [place] [address] [address] 2020-04-06 2020-04-06 Anesthesia Dana Sampson 1.2.8 40.114 [id number] Univers 09:10:00 11:29:00 CarolrosendadedrickCynthia Maggy 350.1.1 3.10 ity of Hospital 4.2.7.2.686 [place] as [phone] [facility] [address] 2020-03-29 2020-03-29 Transition Melanie Vallejo 1.2.840.114 [id number] Univers 00:00:00 00:00:00 of Care Emili Recinos 350.1.13.10 [place] [id number] [facility] [address] 2020-03-25 2020-03-28 [facility] Bernardo Donnelly [facility] 1.2.840.114 [id number] Univers 19:12:00 18:43:00 Encounter [facility] 350.1.13.1 0 [place] [phone] [facility] [address] ([facility]) 2020-03-07 2020-03-07 Transition Melanie Vallejo 1.2.840.114 [id number] Univers 00:00:00 00:00:00 of Care Emili Recinos 350.1.13.10 [place] [id number] [facility] [address] 2020-03-02 2020-03-05 [facility] Sabi Begum [facility] 1.2.840.11 4 [id number] Univers 19:53:34 17:23:00 Encounter Eliu [facility] 350.1.13.10 ity of [place] 4.2.7.2.686 [place] [phone] [facility] 110 [address] ([facility]) 2020-02-29 2020-02-29 Transition Melanie Vallejo 1.2.840.114 [id number] Univers 00:00:00 00:00:00 of Care Emili Recinos 350.1.13.10 [place] [id number] [facility] [address] 2020-02-26 2020-02-27 Hospital Juventino Mccabe 1.2.840.11 4 [id number] Univers 04:55:41 19:20:00 Encounter Bia Pedro 350.1.13.10 ity of [facility] 4.2.7.2.686 Javi as [id number] [facility] 0[address] 2020-02-27 2020-02-27 Patient Saira Goodman 1.2.840.114 [id number] Univers 00:00:00 00:00:00 Outreach E Recinos 350.1.13.10 i [place] [phone] [facility] [address] 2020-02-25 2020-02-26 Emergency Begum, [facility] 1.2.030.952 [id number] Univers 21:25:58 03:55:00 [facility] 350.1.13.10 it y of [place] [phone] [facility] 0[address] ([facility]) 2020-02-24 2020-02-24 Outpatient Perea, [facility] LABO [id number] [facility] 07:51:00 07:51:00 Mark 96 [facility] 2020-02-18 2020-02-18 Outpatient Avtar, [facility] LABO [id number] [facility] 00:26:00 00:26:00 Oladipo 05 [facility] 2020-02-07 2020-02-07 Transition Melanie Vallejo 1.2.840.114 [id number] Univers 00:00:00 00:00:00 of Care Emili Recinos 350.1.13.10 [place] [phone] [address] 2020-02-07 2020-02-07 Transition Melanie Vallejo 1.2.840.114 [id number] 00:00:00 00:00:00 of Care Emili Recinos 350.1.13.10 [place] 4.2.7.2.686 [id number] 403 2020-01-28 2020-02-05 Inpatient X SIMIN, [facility] [id number] Univers 18:12:56 15:12:00 RADHESHYAM ity of [facility] 2020-01-28 2020-02-05 Hospital Bernardo Donnelly [facility] 1.2.840.114 [id number] Univers 18:12:56 15:12:00 Encounter Luis Carlos [facility] 350.1.13.10 ity of [place] 4.2.7.2.686 [place] [id number] [facility] [address] ([facility]) 2020-01-28 2020-02-05 [facility] Bernardo Donnelly [facility] 1.2.840.114 [id number] 18:12:56 15:12:00 Encounter Luis Carlos [facility] 350.1.13.10 Simin Radheshyam [place] 4.2.7.2.686 [place] [phone] [place] [address] ([facility]) 2020-01-24 2020-01-26 Emergency BegumSabi simons [facility] 1.2.840.1 14 [id number] Univers 18:46:34 19:35:00 [facility] 350.1.13.10 ity of Simin Radheshyam [place] 4.2.7.2.686 [facility] [id number] [facility] [address] ([facility]) 2020-01-24 2020-01-26 Outpatient X SIMIN, [facility] [id number] Univers 18:46:34 19:35:00 RADHESHYAM ity of [facility] 2020-01-24 2020-01-26 Emergency BegumSabi [facility] 1.2.840.1 14 [id number] 18:46:34 19:35:00 Luis [facility] 350.1.13.10 Simin, Radheshyam [place] 4.2.7.2.686 [place] [phone] [facility] 109 ([facility]) 2020-01-05 2020-01-05 Outpatient Eliazar, MASONCL OUTD [id number] [facility] 23:52:00 23:52:00 [facility] 2019-12-28 2019-12-28 Orders Doctor BERNARDO 1.2.840.114 [id number] Univers 00:00:00 00:00:00 Only Unassigned, MAGGY 350.1.13.10 ity of [place] [facility] 4.2.7.2.686 Javi as [phone] [place] [address] Branch 2019-12-28 2019-12-28 Orders Doctor BERNARDO 1.2.840.114 [id number] 00:00:00 00:00:00 Only Unassigned, MAGGY 350.1.13.10 [place] [facility] 4.2.7.2.686 [id number] 009 2019-12-12 2019-12-12 Emergency Starkweather, TRAUMA 1.2.845.115 [id number] Univers 21:02:30 23:20:00 [facility] 350.1.13.10 i [place] [id number] [facility] [address] 2019-12-12 2019-12-12 Emergency Starkweather, TRAUMA 1.2.423.652 [id number] 21:02:30 23:20:00 [facility] 350.1.13.10 4.2.7.2.686 [id number] 014 2017-11-02 2017-11-02 Emergency E [facility] [id number] 08:33:00 08:33:00 [facility] 2017-08-05 2017-08-05 Outpatient [facility] [id number] [place] 00:00:00 00:00:00 Health 2017-07-28 2017-07-28 Outpatient [facility] [id number] [place] 00:00:00 00:00:00 [facility] 2017-06-24 2017-06-24 Outpatient [facility] [id number] [place] 00:00:00 00:00:00 [facility] 2017-06-22 2017-06-22 Emergency [facility] [id number] [place] 21:37:29 21:37:29 Health 2017-06-22 2017-06-22 Emergency [facility] [id number] [place] 21:06:00 21:06:00 [facility] 2017-06-22 2017-06-22 Outpatient [facility] [id number] [place] 10:02:31 10:02:31 Health 2017-06-09 2017-06-09 Outpatient [facility] [id number] [place] 00:00:00 00:00:00 [facility] 2017-06-09 2017-06-09 Outpatient [facility] [id number] [place] 00:00:00 00:00:00 [facility] 2017-05-08 2017-05-08 Emergency [facility] [id number] [place] 01:04:44 01:04:44 Health 2017-05-05 2017-05-05 Emergency E [facility] [id number] 08:11:00 08:11:00 [facility] 2017-04-15 2017-04-15 Emergency E [facility] MED [id number] 09:53:00 09:53:00 [facility] 2017-04-14 2017-04-14 Outpatient [facility] [id number] [place] 13:31:02 13:31:02 Health Results Test Description Test [...] 31.6 g/dL 31.2-35 RDW-SD (test code = 46544-1) 56.7 fL 38.5-51.6 H RDW-CV (test code = 788-0) 17.4 % 12.1-15.4 H PLT (test code = 777-3) See_Comment [Au tomated message] The system which ge nerated this result transmit dain reference range: 150 - 32 8 10*3/?L. The reference range was not used to interpret th is result as normal/abnormal . MPV (test code = 28987-8) 9.5 fL 9.8-13 L NRBC/100 WBC (test code = See_Comment [ Automated message] The 5817806733) system which [employer] nerated this result transmit dain reference range: 0.0 - 10 .0 /100 WBCs. The reference r meredith was not used to interpr et this result as normal/abnor mal. NRBC x10^3 (test code = See_Comment [Au tomated message] The 9794298902) system which [employer] nerated this result transmit dain reference range: 10*3/?L. The reference range was not u sed to interpret this result as normal/abnormal . SEG % (test code = 64538-4) 56 % 33-76 LYMPH % (test code = 28 % 14-54 88966-5) MONO % (test code = 82291-3) 12 % 0-4 H EOS % (test code = 09686-9) 4 % 0-3 H ANC (test code = 753-4) 4.72 10*3/uL 1.99-6.95 PLT ESTIMATE (test code = Normal Normal 9317-9) Lab Interpretation (test Abnormal code = 67627-4) [facility]. METABOLIC PANEL (74660)2022-04-10 04:19:15 Test Item Value Reference Range Interpretation Comments NA (test code = 137 mmol/L 135-145 3724008209) K (test code = 4.6 mmol/L 3.5-5 9854621396) CL (test code = 108 mmol/L 98-108 7766596331) CO2 TOTAL (test code = 22 mmol/L 23-31 L 8406786531) AGAP (test code = 2-16 3952181069) BUN (test code = 16 mg/dL 7-23 5617622664) GLUCOSE (test code = 96 mg/dL 70-110 1345666802) CREATININE (test code = 1.35 mg/dL 0.6-1.25 H 9392983146) TOTAL BILI (test code = 0.4 mg/dL 0.1-1.0 9323691357) CALCIUM (test code = 9.1 mg/dL 8.6-10.6 2691767913) T PROTEIN (test code = 5.5 g/dL 6.3-8.2 L 7122337730) ALBUMIN (test code = 3.9 g/dL 3.5-5 2214216935) ALK PHOS (test code = 58 U/L 34-122 5019706652) ALTv (test code = 41 U/L 5-50 1742-6) AST(SGOT) (test code = 42 U/L 13-40 H 6573912584) eGFR (test code = mL/min/1.73m2 1173616372) GILBERTO (test code = GILBERTO) Association of [...] tests). Lab Interpretation Abnormal (test code = 69193-8) [facility] 03:33:31 Test Item Value Reference Range Interpretation Comments LIPASE (test code = 1573715819) 90 U/L 0-220 Lab Interpretation (test code = Normal 49437-6) [facility] 12:00:33 Test Item Value Reference Range Interpretation Comments MAGNESIUM (test code = 5594820865) 1.5 mg/dL 1.7-2.4 L Lab Interpretation (test code = Abnormal 35554-9) [facility] METABOLIC PANEL (NA, K, CL, CO2, GLUCOSE, BUN, CREATININE, CA)2022-04-08 11:12:32 Test Item Value Reference Range Interpretation Comments NA (test code = 136 mmol/L 135-145 9013173141) K (test code = 4.1 mmol/L 3.5-5 6133619353) CL (test code = 108 mmol/L 98-108 2986622757) CO2 TOTAL (test code = 25 mmol/L 23-31 0548844386) AGAP (test code = 2-16 5697884302) BUN (test code = 10 mg/dL 7-23 6278697899) GLUCOSE (test code = 82 mg/dL 70-110 2071301087) CREATININE (test code = 1.10 mg/dL 0.6-1.25 3525182991) CALCIUM (test code = 8.3 mg/dL 8.6-10.6 L 0678035017) eGFR (test code = mL/min/1.73m2 6657276170) GILBERTO (test code = GILBERTO) Association of [...] tests). Lab Interpretation Abnormal (test code = 51007-9) [facility] 11:12:32 Test Item Value Reference Range Interpretation Comments PHOSPHORUS (test code = 3945616153) 2.5 mg/dL 2.5-5 Lab Interpretation (test code = Normal 03473-3) [facility] WITH [id number] 10:47:27 Test Item Value Reference Range Interpretation [...] (test code = 54.4 fL 38.5-51.6 H 09824-8) RDW-CV (test code = 16.9 % 12.1-15.4 H 788-0) PLT (test code = See_Comment [Automated 777-3) message] The sy stem which generated this result transmitted reference range : 150 - 328 10*3/ ?L. The reference r meredith was not used to interpret this result as normal/abnormal . MPV (test code = 9.7 fL 9.8-13 L 64573-1) NRBC/100 WBC (test See_Comment [Automat ed code = 0307975210) message] The system which generated this result transmitted reference range : 0.0 - 10.0 /100 WBCs. The refer ence range was not u sed to interpret th is result as normal/abnormal . NRBC x10^3 (test code See_Comment [Auto mated = 1410585702) message] The s ystem which generated this result transmitted reference range : 10*3/?L. The reference range was not used to interpret this result as normal/abnormal . GRAN MAT (NEUT) % 54.7 % (test code = 770-8) IMM GRAN % (test code 0.40 % = 2562624241) LYMPH % (test code = 33.8 % 736-9) MONO % (test code = 8.7 % 5905-5) EOS % (test code = 2.0 % 713-8) BASO % (test code = 0.4 % 706-2) GRAN MAT x10^3(ANC) 2.95 10*3/uL 1.99-6.95 (test code = 1471670577) IMM GRAN x10^3 (test 0-0.06 code = 7618822972) LYMPH x10^3 (test code 1.82 10*3/uL 1.09-3.23 = 731-0) MONO x10^3 (test code 0.47 10*3/uL 0.36-1.02 = 742-7) EOS x10^3 (test code = 0.11 10*3/uL 0.06-0.53 711-2) BASO x10^3 (test code 0.01-0.09 = 704-7) Lab Interpretation Abnormal (test code = 58354-1) [facility] METABOLIC PANEL (NA, K, CL, CO2, GLUCOSE, BUN, CREATININE, CA)2022-04-06 09:47:17 Test Item Value Reference Range Interpretation Comments NA (test code = 134 mmol/L 135-145 L 6676904946) K (test code = 4.2 mmol/L 3.5-5 Slight 7857327079) hemolysis CL (test code = 114 mmol/L 98-108 H 3541400275) CO2 TOTAL (test code 16 mmol/L 23-31 L = 1182614369) AGAP (test code = 2-16 2949287094) BUN (test code = 16 mg/dL 7-23 Slight 9189709377) hemolysis GLUCOSE (test code = 79 mg/dL 70-110 7947646276) CREATININE (test code 1.00 mg/dL 0.6-1.25 = 8736223058) CALCIUM (test code = 7.5 mg/dL 8.6-10.6 L 4025891786) eGFR (test code = mL/min/1.73m2 2669247526) GILBERTO (test code = GILBERTO) Association of [...] tests). Lab Interpretation Abnormal (test code = 74784-9) [facility]47[facility]17 Test Item Value Reference Range Interpretation Comments MAGNESIUM (test code = 6223892907) 1.2 mg/dL 1.7-2.4 L Lab Interpretation (test code = Abnormal 21770-2) [facility] [id number] 09:16:49 Test Item Value Reference Range Interpretation Comments LACTIC ACID (test code = 1.35 mmol/L 0.5-2.2 0827490164) Lab Interpretation (test code = Normal 84563-7) [facility] [id number] 09:13:32 Test Item Value Reference Range Interpretation [...] (test code = 52.4 fL 38.5-51.6 H 52938-0) RDW-CV (test code = 16.6 % 12.1-15.4 H 788-0) PLT (test code = See_Comment [Automated 777-3) message] The sy stem which generated this result transmitted reference range : 150 - 328 10*3/ ?L. The reference r meredith was not used to interpret this result as normal/abnormal . MPV (test code = 10.0 fL 9.8-13 30787-7) NRBC/100 WBC (test See_Comment [Automat ed code = 9814504029) message] The system which generated this result transmitted reference range : 0.0 - 10.0 /100 WBCs. The refer ence range was not u sed to interpret th is result as normal/abnormal . NRBC x10^3 (test code See_Comment [Auto mated = 5200171231) message] The s ystem which generated this result transmitted reference range : 10*3/?L. The reference range was not used to interpret this result as normal/abnormal . GRAN MAT (NEUT) % 48.6 % (test code = 770-8) IMM GRAN % (test code 0.20 % = 3454500473) LYMPH % (test code = 39.4 % 736-9) MONO % (test code = 9.3 % 5905-5) EOS % (test code = 1.9 % 713-8) BASO % (test code = 0.6 % 706-2) GRAN MAT x10^3(ANC) 2.36 10*3/uL 1.99-6.95 (test code = 4662253447) IMM GRAN x10^3 (test 0-0.06 code = 4243394356) LYMPH x10^3 (test code 1.91 10*3/uL 1.09-3.23 = 731-0) MONO x10^3 (test code 0.45 10*3/uL 0.36-1.02 = 742-7) EOS x10^3 (test code = 0.09 10*3/uL 0.06-0.53 711-2) BASO x10^3 (test code 0.03 10*3/uL 0.01-0.09 = 704-7) Lab Interpretation Abnormal (test code = 24217-3) [facility] 07:34:48 Test Item Value Reference Range Interpretation Comments MAGNESIUM (test code = 0969183381) 1.8 mg/dL 1.7-2.4 Lab Interpretation (test code = Normal 06659-2) [facility] [id number] 18:40:18 Test Item Value Reference Range Interpretation Comments PH (test code = 7.32-7.42 L 8852915067) PCO2 PANKAJ (test code = See_Comment [Auto mated message] 6065360916) The system [employer] generated this result transmitted ref erence range: 41 - 51 mmHg. The reference r meredith was not used to interpret this result as normal/abnor mal. PO2 PANKAJ (test code = See_Comment L [Autom ated message] 6633700698) The system [employer] generated this result transmitted ref erence range: 25 - 40 mmHg. The reference r meredith was not used to interpret this result as normal/abnor mal. HCO3 PANKAJ (test code = See_Comment L [Auto mated message] 0054184031) The system [employer] generated this result transmitted ref erence range: 24 - 28 mEq/L. The reference r meredith was not used to interpret this result as normal/abnor mal. AC VBE(BEAKER) (test mEq/L code = 5605156170) Lab Interpretation (test Abnormal code = 95910-8) [facility] METABOLIC PANEL (NA, K, CL, CO2, GLUCOSE, BUN, CREATININE, CA)2022-04-03 18:33:26 Test Item Value Reference Range Interpretation Comments NA (test code = 129 mmol/L 135-145 L 7151981346) K (test code = 3.3 mmol/L 3.5-5 L 5259517789) CL (test code = 100 mmol/L 98-108 2191959157) CO2 TOTAL (test code = 19 mmol/L 23-31 L 0628391856) AGAP (test code = 2-16 3208529477) BUN (test code = 49 mg/dL 7-23 H 7243512755) GLUCOSE (test code = 75 mg/dL 70-110 5369151641) CREATININE (test code = 2.55 mg/dL 0.6-1.25 H 9090698249) CALCIUM (test code = 8.6 mg/dL 8.6-10.6 3560676192) eGFR (test code = mL/min/1.73m2 3262594379) GILBERTO (test code = GILBERTO) Association of [...] tests). Lab Interpretation Abnormal (test code = 59957-7) [facility], SERUM OR [id number] 15:45:31 Test Item Value Reference Range Interpretation Comments OSMOLALITY (test code = See_Comment [Au tomated message] 3662-2) The system whic h generated this result transmitted ref erence range: 278 - 30 5 mOsm/kg. The re ference range was not u sed to interpret this result as normal/abnor mal. Lab Interpretation (test Normal code = 75587-9) [facility] with [id number] 11:27:34 Test Item Value Reference Range Interpretation Comments WBC (test code = See_Comment [Automated 2190-2) message] The sy stem which generated this result transmitted reference range : 4.20 - 10.70 10*3/?L. The reference range was not used to interpret this result as normal/abnormal . RBC (test code = See_Comment L [Automated 259-8) message] The sy stem which generated this [...] RDW-SD (test code = 48.7 fL 38.5-51.6 65525-6) RDW-CV (test code = 15.9 % 12.1-15.4 H 788-0) PLT (test code = See_Comment [Automated 777-3) message] The sy stem which generated this result transmitted reference range : 150 - 328 10*3/ ?L. The reference r meredith was not used to interpret this result as normal/abnormal . MPV (test code = 9.4 fL 9.8-13 L 92569-8) NRBC/100 WBC (test See_Comment [Automat ed code = 4003421064) message] The system which generated this result transmitted reference range : 0.0 - 10.0 /100 WBCs. The refer ence range was not u sed to interpret th is result as normal/abnormal . NRBC x10^3 (test code See_Comment [Auto mated = 1900220303) message] The s ystem which generated this result transmitted reference range : 10*3/?L. The reference range was not used to interpret this result as normal/abnormal . GRAN MAT (NEUT) % 56.0 % (test code = 770-8) IMM GRAN % (test code 0.50 % = 1115921735) LYMPH % (test code = 33.2 % 736-9) MONO % (test code = 8.6 % 5905-5) EOS % (test code = 1.1 % 713-8) BASO % (test code = 0.6 % 706-2) GRAN MAT x10^3(ANC) 3.64 10*3/uL 1.99-6.95 (test code = 6101639176) IMM GRAN x10^3 (test 0.03 10*3/uL 0-0.06 code = 6530568283) LYMPH x10^3 (test code 2.16 10*3/uL 1.09-3.23 = 731-0) MONO x10^3 (test code 0.56 10*3/uL 0.36-1.02 = 742-7) EOS x10^3 (test code = 0.07 10*3/uL 0.06-0.53 711-2) BASO x10^3 (test code 0.04 10*3/uL 0.01-0.09 = 704-7) Lab Interpretation Abnormal (test code = 02906-8) [facility] Metabolic Panel (NA, K, CL, CO2, GLUCOSE, BUN, CREATININE, CA)2022-04-03 10:08:59 Test Item Value Reference Range Interpretation Comments NA (test code = 125 mmol/L 135-145 L 4864869773) K (test code = 3.7 mmol/L 3.5-5 1571452427) CL (test code = 96 mmol/L 98-108 L 8117433455) CO2 TOTAL (test code = 15 mmol/L 23-31 L 2079501184) AGAP (test code = 2-16 6837282798) BUN (test code = 50 mg/dL 7-23 H 1721520324) GLUCOSE (test code = 86 mg/dL 70-110 5415794971) CREATININE (test code = 3.86 mg/dL 0.6-1.25 H 2218922746) CALCIUM (test code = 8.6 mg/dL 8.6-10.6 7381031826) eGFR (test code = mL/min/1.73m2 2941467770) GILBERTO (test code = GILBERTO) Association of [...] tests). Lab Interpretation Abnormal (test code = 53628-4) [facility] Acid Whole [id number] 04:09:02 Test Item Value Reference Range Interpretation Comments LACTIC ACID (test code = 1.54 mmol/L 0.5-2.2 0331561614) Lab Interpretation (test code = Normal 14744-0) [facility] [id number] 00:25:08 Test Item Value Reference Range Interpretation Comments LACTIC ACID (test code = 2.50 mmol/L 0.5-2.2 H 9968942489) Lab Interpretation (test code = Abnormal 51500-5) [facility] WITH [id number] 20:19:45 Test Item Value Reference Range Interpretation Comments WBC (test code = See_Comment H [Automated 3046-2) message] The system which generated this result transmit dain reference range : 4.20 - 10.70 10*3/?L. The reference range was not used to interpret this result as normal/abnormal . RBC (test code = See_Comment [Automated 034-8) message] The system which generated this result [...] RDW-SD (test code = 49.8 fL 38.5-51.6 81876-5) RDW-CV (test code = 16.4 % 12.1-15.4 H 788-0) PLT (test code = See_Comment H [Automated 777-3) message] The system which generated this result transmit dain reference range : 150 - 328 10*3/ ?L. The reference range was not u sed to interpret th is result as normal/abnormal . MPV (test code = 10.7 fL 9.8-13 71576-9) NRBC/100 WBC (test See_Comment [Automat ed code = 5573543450) message] The system which generated this result transmit dain reference range : 0.0 - 10.0 /100 WBCs. The reference range was not used to interpret this result as normal/abnormal . NRBC x10^3 (test code See_Comment [Auto mated = 3575499468) message] The system which generated this result transmit dain reference range : 10*3/?L. The reference range was not used to interpret this result as normal/abnormal . GRAN MAT (NEUT) % 73.4 % (test code = 770-8) IMM GRAN % (test code 0.60 % = 5655603339) LYMPH % (test code = 17.2 % 736-9) MONO % (test code = 8.2 % 5905-5) EOS % (test code = 0.2 % 713-8) BASO % (test code = 0.4 % 706-2) GRAN MAT x10^3(ANC) 10.17 10*3/uL 1.99-6.95 H (test code = 0127220494) IMM GRAN x10^3 (test 0.09 10*3/uL 0-0.06 H code = 7009428789) LYMPH x10^3 (test code 2.38 10*3/uL 1.09-3.23 = 731-0) MONO x10^3 (test code 1.13 10*3/uL 0.36-1.02 H = 742-7) EOS x10^3 (test code = 0.03 10*3/uL 0.06-0.53 L 711-2) BASO x10^3 (test code 0.05 10*3/uL 0.01-0.09 = 704-7) Lab Interpretation Abnormal (test code = 64895-3) [facility] W/AUTO [id number] 00:06:00 Test Item Value Reference Range Interpretation [...] = MX#) 0.5 k/mm3 0.1-0.8 N TROPONIN-I [id number] 15:07:00 Test Item Value Reference Range Interpretation Comments TROPONIN-I RAPID 0.00 ng/mL 0.00-0.08 N Performed b y certified (test code = alum operator at [facility]OPIRAP) Ctr Negative: < = 0.08 Positive: [...] changes in trop onin levels characteristic of [place]. BASIC METABOLIC [id number] 14:56:00 Test Item Value Reference Range Interpretation [...] MG/DL 70-110 N - XR CHEST 1 [id number] 00:00:00 [facility] : 1970 Sex: M FAX: Sabi Urias MD [phone] [place]: [place] St: REG Name: HOANG JOSEPH FSED : 1970 Age/S: 52/M [address] [facility] Unit #: [id number] Loc: [place] [address] Phys: Sabi Urias MD Acct: [id number] Dis Date: Status: REG ER PHONE #: Exam Date: 03/29/2022 1508 FAX #: Reason: Weakness EXAMS: CPT CODE: [id number] XR CHEST 1 V 97737 PROCEDURE INFORMATION: Exam: XR Chest Exam date [...] MD Technologist: RT Simone(R)(CT) Trnscrd Date/Time/By: 03/29/2022 (1530) : By: GarettTTV Orig Print D/T: S: 03/29/2022 (1531) PAGE 1 Signed ReportHEPATIC FUNCTION [id number] 06:45:03 Test Item Value Reference Range Interpretation [...] (test code = 13 U/L 6-55 347) [employer] ID Philipp HOOD WBASIC METABOLIC [id number] 06:45:02 Test Item Value Reference Range Interpretation [...] S NOT APPLICABLE FOR DIALYSIS PATIEN TS. [employer] Scout ID Philipp HOOD WCBC W/PLT COUNT & AUTO [id number] 06:26:54 Test Item Value Reference Range Interpretation [...] (BEAKER) (test code = 2801) U/S, RENAL, [id number] 19:23:00Reason for exam:->acute kidney injury [facility] : 1970 Sex: [...] SARS-Co V-2 (test code = target nucleic 74857-1) acids are not detected in thi s [...] revoked sooner. Fact Sheet for Healthcare Providers: https://www.[employer]/Documents/Xp ert%20Xpress%20SAR S%20CoV-2/Fact%20S heets/302-3802%20S ARS-COV-2%20HEALTH CARE%20PROVIDERS%2 0FACT%20SHEET.pdf Fact Sheet for Healthcare Patients: https://www.[employer]/Documents/Xp ert%20Xpress%20SAR S%20CoV-2/Fact%20S heets/302-3801%20S ARS-COV-2%20PATIEN T%20FACT%20SHEET.p df Lab Interpretation Normal (test code = 54111-7) [facility] 19:17:07 Test Item Value Reference Interpretation Comments Range SARS-COV2/RT-PCR Negative Negative The SARS-Co V-2 (test code = target nucleic 45187-7) acids are not detected in thi s [...] revoked sooner. Fact Sheet for Healthcare Providers: https://www.[employer]/Documents/Xp ert%20Xpress%20SAR S%20CoV-2/Fact%20S heets/302-3802%20S ARS-COV-2%20HEALTH CARE%20PROVIDERS%2 0FACT%20SHEET.pdf Fact Sheet for Healthcare Patients: https://www.[employer]/Documents/Xp ert%20Xpress%20SAR S%20CoV-2/Fact%20S heets/302-3801%20S ARS-COV-2%20PATIEN T%20FACT%20SHEET.p df Lab Interpretation Normal (test code = 36640-6) [facility]2022-03-06 19:17:07 Test Item Value Reference Interpretation Comments Range SARS-COV2/RT-PCR Negative Negative The SARS-Co V-2 (test code = target nucleic 29968-1) acids are not detected in thi s [...] revoked sooner. Fact Sheet for Healthcare Providers: https://www.[employer]/Documents/Xp ert%20Xpress%20SAR S%20CoV-2/Fact%20S heets/302-3802%20S ARS-COV-2%20HEALTH CARE%20PROVIDERS%2 0FACT%20SHEET.pdf Fact Sheet for Healthcare Patients: https://www.[employer]/Documents/Xp ert%20Xpress%20SAR S%20CoV-2/Fact%20S heets/302-3801%20S ARS-COV-2%20PATIEN T%20FACT%20SHEET.p df Lab Interpretation Normal (test code = 94664-8) [facility]2022-03-06 19:17:07 Test Item Value Reference Interpretation Comments Range SARS-COV2/RT-PCR Negative Negative The SARS-Co V-2 (test code = target nucleic 36619-4) acids are not detected in thi s [...] om SARS-CoV-2 in a nasopharyngeal swab specimen [facility] from individual s suspected of COVID-19 by [...] revoked sooner. Fact Sheet for Healthcare Providers: https://www.[employer]/Documents/Xp ert%20Xpress%20SAR S%20CoV-2/Fact%20S heets/302-3802%20S ARS-COV-2%20HEALTH CARE%20PROVIDERS%2 0FACT%20SHEET.pdf Fact Sheet for Healthcare Patients: https://www.[employer]/Documents/Xp ert%20Xpress%20SAR S%20CoV-2/Fact%20S heets/302-3801%20S ARS-COV-2%20PATIEN T%20FACT%20SHEET.p df Lab Interpretation Normal (test code = 41069-9) [facility]2022-03-06 19:17:07 Test Item Value Reference Interpretation Comments Range SARS-COV2/RT-PCR Negative Negative The SARS-Co V-2 (test code = target nucleic 53258-1) acids are not detected in thi s [...] revoked sooner. Fact Sheet for Healthcare Providers: https://www.[employer]/Documents/Xp ert%20Xpress%20SAR S%20CoV-2/Fact%20S heets/302-3802%20S ARS-COV-2%20HEALTH CARE%20PROVIDERS%2 0FACT%20SHEET.pdf Fact Sheet for Healthcare Patients: https://www.[employer]/Documents/Xp ert%20Xpress%20SAR S%20CoV-2/Fact%20S heets/302-3801%20S ARS-COV-2%20PATIEN T%20FACT%20SHEET.p df Lab Interpretation Normal (test code = 48746-1) [facility])2022-03-06 19:17:07 Test Item Value Reference Range Interpretation Comments SARS-COV2/RT-PCR Negative Negative The SARS-Co V-2 target (test code = nucleic acids a re not 6718311) detected in thi s specimen. Negative result [...] revoked sooner. Fact Sheet for Healthcare Providers: https://www.[employer] m/Documents/Xpert%20Xpress%20SARS%20CoV-2/Fact%20Sheets/302-3802%96WEFE-SVC-2%20 HEALTHCARE%20PROVIDERS%20FACT%20SHEET.pdf Fact Sheet for Healthcare Patients: https://www.[employer]/Documents/Xpert%20Xp ress%20SARS%20CoV-2/Fact%20Sheets/302-3801%76XGEF-RBE-7%20PATIENT%20FACT%20SHEET .pdfCREATINE KINASE (CK)2022-03-06 16:19:14 Test Item Value Reference Range Interpretation Comments CREATINE KINASE TOTAL (BEAKER) (test 141 U/L 29-200 code = 380) Field Scout ID - BST4, CCPL2933-64-97 15:13:16 Test Item Value Reference Range Interpretation Comments FREE T4 (BEAKER) (test code = 655) 0.95 ng/dL 0.70-1.48 Field Scout ID - BSTSH/FREE T4 IF [id number] 15:13:16 Test Item Value Reference Range Interpretation Comments THYROID STIMULATING HORMONE 2.060 uIU/mL 0.350-4.940 (BEAKER) (test code = 772) Field Scout ID - BSB-TYPE NATRIURETIC FACTOR (BNP)2022-03-06 14:26:30 Test Item Value Reference Range Interpretation Comments B-TYPE NATRIURETIC PEPTIDE (BEAKER) < pg/mL 0-100 (test code = 700) Field Scout ID - JSHIGH SENSITIVITY TROPONIN [id number] 14:14:54 Test Item Value Reference Range Interpretation Comments HIGH SENSITIVITY < pg/ml See_Comment [Automated message] TROPONIN I (test code = The system which 1681914) generated this result transmitted ref erence range: <=35. Th e reference range was not used to interpr et this result as normal/abnormal . Field Scout ID - JSThe DIRECTOR MOBILE STAT High Sensitivity Troponin-I results should be used in conjunctionwith other diagnostic information such as ECG, clinical observations and information, and patient symptoms to aid in the diagnosis of [place].RAD, CHEST, 1 VIEW, NON [id number] 14:10:00Reason for exam:- >NEUROLOGIC PROBLEMShould this be performed at the bedside?->Yes [facility] : 1970 Sex: MFINAL REPORT Chest, 1 view, 03/06/2022 2:03 PM. History: Neurologic problem. Comparison: 03/28/2019. Discussion: The cardiomediastinal silhouette and pulmonary vasculature are within normal limits for a portable exam. The lungs are clear without evidence of consolidation or effusion. The soft tissues and osseous structures are intact. IMPRESSION: No acute cardiopulmonary abnormality. Signed: [facility] Verified Date/Time: 03/06/2022 14:10:44 REHENSIVE METABOLIC [id number] 14:08:22 Test Item Value Reference Range Interpretation [...] S NOT APPLICABLE FOR DIALYSIS PATIEN TS. Field Scout ID - [id number] 14:07:49 Test Item Value Reference Range Interpretation Comments MAGNESIUM (BEAKER) (test code = 2.0 mg/dL 1.6-2.6 627) Field Scout ID - [id number] 14:07:49 Test Item Value Reference Range Interpretation Comments PHOSPHORUS (BEAKER) (test code = 5.6 mg/dL 2.3-4.7 H 604) Field Scout ID - JSLACTIC ACID, HNZPHW4273-10-08 13:51:04 Test Item Value Reference Range Interpretation Comments LACTATE BLOOD VENOUS 1.32 mmol/L 0.50-2.20 Specime n slightly (2) (BEAKER) (test hemolyzed code = 2872) Field Scout ID - JSCBC W/PLT COUNT & AUTO SKEITWXSEDUW3982-79-91 13:47:24 Test Item Value Reference Range Interpretation [...] (BEAKER) (test code = 2801) Coronavirus, CoVID-19, [id number] 01:07:20 Test Item Value Reference Range Interpretation Comments COVID-19 (SARS-COV-2) Not Detected Not Detected INTERP RETATION: No (test code = 90752-2) detect able levels of SARS-CoV-2 Coronavirus (COVID-19) [...] SARS-CoV-2 mole cular diagnostic assa y utilizes [employer] Team Member Mediated Amplification ( TMA) technology to r apidly detect the SARS -CoV-2 (COVID-19) viru s from respiratory adriana ples. In accordance w ith the FDA's kamran nce document "Polic y for Diagnostic Test s for Coronavirus Disease-2019 du [facility] the Public [facility]", thi s test was developed, and its performance characteristics were verified by the [facility] molecular diagn ostics laboratory and is authorized for clinical diagno stic use. This labor atory is certified un estevan the Clinical Laboratory Improvement Amendments (CLI A) as qualified to pe rform high complexity clinical labora tory testing. Lab Interpretation Normal (test code = 40852-6) [facility] [id number] 01:07:20 Test Item Value Reference Range Interpretation Comments COVID-19 (SARS-COV-2) Not Detected Not Detected INTERP RETATION: No (test code = 60682-0) detect able levels of SARS-CoV-2 Coronavirus (COVID-19) [...] SARS-CoV-2 mole cular diagnostic assa y utilizes [employer] Team Member Mediated Amplification ( TMA) technology to r apidly detect the SARS -CoV-2 (COVID-19) viru s from respiratory adriana ples. In accordance w ith the FDA's kamran nce document "Polic y for Diagnostic Test s for Coronavirus Disease-2019 du ring the Public [facility] th Emergency", thi s test was developed, and its performance characteristics were verified by the [facility] molecular diagn ostics laboratory and is authorized for clinical diagno stic use. This labor atory is certified un estevan the Clinical Laboratory Improvement Amendments (CLI A) as qualified to pe rform high complexity clinical labora tory testing. Lab Interpretation Normal (test code = 75200-4) [facility], [id number] 01:07:20 Test Item Value Reference Range Interpretation Comments COVID-19 (SARS-COV-2) Not Detected Not Detected INTERP RETATION: No (test code = 69637-8) detect able levels of SARS-CoV-2 Coronavirus (COVID-19) [...] SARS-CoV-2 mole cular diagnostic assa y utilizes [employer] Team Member Mediated Amplification ( TMA) technology to r apidly detect the SARS -CoV-2 (COVID-19) viru s from respiratory adriana ples. In accordance w ith the FDA's kamran nce document "Polic y for Diagnostic Test s for Coronavirus Disease-2019 du ring the Public [facility]", thi s test was developed, and its performance characteristics were verified by the [facility] molecular diagn ostics laboratory and is authorized for clinical diagno stic use. This labor atory is certified un estevan the Clinical Laboratory Improvement Amendments (CLI A) as qualified to pe rform high complexity clinical labora tory testing. Lab Interpretation Normal (test code = 30557-8) [facility]ugRBK[facility]R-[facility] ORF1ab Resp Ql OLENA+ptobq4003-64-56 01:07:20 Test Item Value Reference Range Interpretation Comments Hospitalized? (test No code = 53158-4) ICU? (test code = No 74082-5) Symptomatic as No defined by CDC? (test code = 50944-1) Employed in No Healthcare? (test code = 26917-4) Resident in a No congregate care setting (including nursing homes, residential care for people with intellectual and developmental disabilities, psychiatric treatment facilities, group homes, board and care homes, homeless halfway, foster care or other): (test code = 51413-8) SARS-CoV-2 ORF1ab NOT DETECTED Not Detected INTERPRETA TION: No Resp Ql OLENA+probe detectable levels of (test code = SARS-CoV-2 86674-8) Coronavirus (COVID-19) were present in this patient's [...] SARS-CoV-2 mole cular diagnostic assa y utilizes [employer] Team Member Mediated Amplification ( TMA) technology to r apidly detect the SARS -CoV-2 (COVID-19) viru s from respiratory adriana ples. In accordance with\\XC2A0\\the FDA's guidance docume nt "Policy for Diagnostic Test s for Coronavirus Disease-2019 du ring the Public [facility] th Emergency", amalia s test was developed, and its performance characteristics were verified by the [facility] molecular diagn ostics laboratory and is authorized for clinical diagno stic use. \\XC2A0\\Thi s laboratory is certified under the Clinical Labora tory Improvement Amendments (CLI A) as qualified to pe rform high complexity clinical labora tory testing. POCT GLUCOSE POC docked [id number] 08:09:01 Test Item Value Reference Range Interpretation Comments Glucose POC (test code = 72904124) 85 mg/dL 74-106 Lab Interpretation (test code = Normal 96095-2) [facility] [id number] 08:09:01 Test Item Value Reference Range Interpretation Comments Glucose POC (test code = 75823250) 85 mg/dL 74-106 Lab Interpretation (test code = Normal 07037-0) [facility] [id number] 08:09:01 Test Item Value Reference Range Interpretation Comments Glucose POC (test code = 40417509) 85 mg/dL 74-106 Lab Interpretation (test code = Normal 01222-5) [facility] ORF1ab Resp Ql OLENA+hsznz9453-78-55 23:25:40 Test Item Value Reference Range Interpretation Comments Hospitalized? (test No code = 68456-7) ICU? (test code = No 62099-8) Symptomatic as No defined by CDC? (test code = 74726-3) Employed in No Healthcare? (test code = 09204-4) Resident in a No congregate care setting (including nursing homes, residential care for people with intellectual and developmental disabilities, psychiatric treatment facilities, group homes, board and care homes, homeless halfway, foster care or other): (test code = 71280-3) SARS-CoV-2 ORF1ab NOT DETECTED Not Detected INTERPRETA TION: No Resp Ql OLENA+probe detectable levels of (test code = SARS-CoV-2 32029-2) Coronavirus (COVID-19) were present in this patient's [...] SARS-CoV-2 mole cular diagnostic assa y utilizes [employer] Team Member Mediated Amplification ( TMA) technology to r apidly detect the SARS -CoV-2 (COVID-19) viru s from respiratory adriana ples. In accordance with\\XC2A0\\the FDA's guidance docume nt "Policy for Diagnostic Test s for Coronavirus Disease-2018 du [facility] the [facility] th Emergency", amalia s test was developed, and its performance characteristics were verified by the [facility] molecular diagn ostics laboratory and is authorized for clinical diagno stic use. \\XC2A0\\Amalia s laboratory is certified under the Clinical Labora tory Improvement Amendments (CLI A) as qualified to pe rform high complexity clinical labora tory testing. 12 Lead [id number] 15:46:1012 LEAD EKG FOR [facility] Test Date: 4379-12-73Vxj Name: DORA JOSEPH Department: 5ECIPatient ID: [id number] Room: Gender: M Checking Clerk: [id number]: 1970 Requested By: SUSHIL Cho Number: [id number] Reading MD: Rene Patterson MeasurementsIntervals [place] Rate: 61 P: 72PR: 152 QRS: 55QRSD: 106 T: 63QT: 398 QTc: 400 Interpretive StatementsSINUS RHYTHMPOSSIBLE RIGHT VENTRICULAR CONDUCTION DELAY [RSR (QR) IN V1/V2]Electronically Signed On 01-22-2022 8:30:45 CDT by Rene AvitiaTrackaPhoneOuachita County Medical CenterSHINE [employer] Technologies [place] [address] Lead [id number] 15:46:1012 LEAD EKG FOR [facility] Test Date: 5895-99-52Yio Name: DORA JOSEPH Department: 5ECIPatient ID: [id number] Room: Gender: M Checking Clerk: [id number]: 1970 Requested By: SUSHIL Cho Number: [id number] Reading MD: Rene Patterson MeasurementsIntervals [place] Rate: 61 P: 72PR: 152 QRS: 55QRSD: 106 T: 63QT: 398 QTc: 400 Interpretive StatementsSINUS RHYTHMPOSSIBLE RIGHT VENTRICULAR CONDUCTION DELAY [RSR (QR) IN V1/V2]Electronically Signed On 01-22-2022 8:30:45 CDT by Rene [place] [address] Lead [id number] 15:46:1012 LEAD EKG FOR [facility] Test Date: 6714-48-31Oez Name: DORA JOSEPH Department: 5ECIPatient ID: [id number] Room: Gender: M Checking Clerk: [id number]: 1970 Requested By: SUSHIL Cho Number: [id number] Reading MD: Rene Patterson MeasurementsIntervals [place] Rate: 61 P: 72PR: 152 QRS: 55QRSD: 106 T: 63QT: 398 QTc: 400 Interpretive StatementsSINUS RHYTHMPOSSIBLE RIGHT VENTRICULAR CONDUCTION DELAY [RSR (QR) IN V1/V2]Electronically Signed On 01-22-2022 8:30:45 CDT by Rene AvitiaCleveland Clinic Fairview HospitalV 1+2 Ab+HIV1 p24 Ag SerPl Ql [id number] 07:02:58 Test Item Value Reference Range Interpretation Comments HIV 1+2 Ab+HIV1 p24 Ag SerPl Ql IA NEGATIVE Negative (test code = 60186-5) [id number] 21:23:2512 LEAD EKG FOR [facility] Test Date: 5918-49-74Jpv Name: DORA JOSEPH Department: 5520Patient ID: [id number] Room: 0N24Idkcyp: M Checking Clerk: : 1970 Requested By: KARIN BASSETT AOrder Number: [id number] Reading MD: Chiara Calles MeasurementsIntervals [place] Rate: 72 P: 90PR: 157 QRS: 87QRSD: 105 T: 90QT: 360 QTc: 384 Interpretive StatementsSINUS RHYTHMPOSSIBLE RIGHT VENTRICULAR CONDUCTION DELAY [RSR (QR) IN V1/V2]EARLY REPOLARIZATION [ST ELEVATION WITH NORMALLY INFLECTED T- WAVE]Electronically Signed On 01-17-2022 13:02:30 CDT by Chiara DavisLake County Memorial Hospital - WestZelpreQFQ4278-59-27 21:23:2512 LEAD EKG FOR [facility] Test Date: 1651-23-64Ojn Name: DORA JOSEPH Department: 5520Patient ID: [id number] Room: 6C00Hokfij: M Checking Clerk: : 1970 Requested By: KARIN BASSETT AOrder Number: [id number] Reading MD: Chiara Calles MeasurementsIntervals [place] Rate: 72 P: 90PR:157 QRS: 87QRSD: 105 T: 90QT: 360 QTc: 384 Interpretive StatementsSINUS RHYTHMPOSSIBLE RIGHT VENTRICULAR CONDUCTION DELAY [RSR (QR) IN V1/V2]EARLY REPOLARIZATION [ST ELEVATION WITH NORMALLY INFLECTED T- WAVE]Electronically Signed On 01-17-2022 13:02:30 CDT by [place]. com. cnEKG2022-05-26 21:23:2512 LEAD EKG FOR [facility] Test Date: 5863-84-70Jzg Name: DORA JOSEPH Department: 5520Patient ID: [id number] Room: 0P06Bsvubi: Checking Clerk: : 1970 Requested By: KARIN BASSETT AOrder Number: [id number] Reading MD: Chiara Calles MeasurementsIntervals [place] Rate: 72 P: 90PR: 157 QRS: 87QRSD: 105 T: 90QT: 360 QTc: 384 Interpretive StatementsSINUS RHYTHMPOSSIBLE RIGHT VENTRICULAR CONDUCTION DELAY [RSR (QR) IN V1/V2]EARLY REPOLARIZATION [ST ELEVATION WITH NORMALLY INFLECTED T- WAVE]Electronically Signed On 01-17-2022 13:02:30 CDT by [place]. com. cnSARS-CoV-2 ORF1ab Resp Ql OLENA+ahrcr8209-51-51 19:57:49 Test Item Value Reference Range Interpretation Comments Hospitalized? (test No code = 73202-9) ICU? (test code = No 55874-4) Symptomatic as No defined by CDC? (test code = 93150-7) Employed in No Healthcare? (test code = 89977-9) Resident in a No congregate care setting (including nursing homes, residential care for people with intellectual and developmental disabilities, psychiatric treatment facilities, group homes, board and care homes, homeless halfway, foster care or other): (test code = 34960-9) SARS-CoV-2 ORF1ab NOT DETECTED Not Detected INTERPRETA TION: No Resp Ql OLENA+probe detectable levels of (test code = SARS-CoV-2 43564-2) Coronavirus (COVID-19) were present in this patient's [...] SARS-CoV-2 mole cular diagnostic assa y utilizes [employer] Team Member Mediated Amplification ( TMA) technology to r apidly detect the SARS -CoV-2 (COVID-19) viru s from respiratory adriana ples. In accordance with\\XC2A0\\the FDA's guidance docume nt "Policy for Diagnostic Test s for Coronavirus Disease-2019 du ring the Public Heal Emergency", amalia s test was developed, and its performance characteristics were verified by the [facility] molecular diagn ostics laboratory and is authorized for clinical diagno stic use. \\XC2A0\\Thi s laboratory is certified under the Clinical Labora tory Improvement Amendments (CLI A) as qualified to pe rform high complexity clinical labora tory testing. POCT CREATININE POC docked [id number] 13:57:55 Test Item Value Reference Range Interpretation Comments Creatinine POC (test 2.4 mg/dL 0.6-1.3 H Physici an Notified code = 97225917) eGFR If non- Am 30 See_Comment L [Aut omated message] (test code = 64441017) The s ystem which generated this result transmit dain reference range : >=90 mL/min/1.7 3 m2. The reference r meredith was not used to interpret this result as normal/abnormal . eGFR If Am (test 35 See_Comment L [A utomated message] code = 95709184) The system which generated this result transmit dain reference range : >=90 mL/min/1.7 3 m2. The reference r meredith was not used to interpret this result as normal/abnormal . Lab Interpretation (test Abnormal code = 83719-1) [facility] CREATININE POC docked [id number] 13:57:55 Test Item Value Reference Range Interpretation Comments Creatinine POC (test 2.4 mg/dL 0.6-1.3 H Physici an Notified code = 23486039) eGFR If non- Am 30 See_Comment L [Aut omated message] (test code = 69921701) The s ystem which generated this result transmit dain reference range : >=90 mL/min/1.7 3 m2. The reference r meredith was not used to interpret this result as normal/abnormal . eGFR If Am (test 35 See_Comment L [A utomated message] code = 04119434) The system which generated this result transmit dain reference range : >=90 mL/min/1.7 3 m2. The reference r meredith was not used to interpret this result as normal/abnormal . Lab Interpretation (test Abnormal code = 25178-3) [facility] CREATININE POC docked [id number] 13:57:55 Test Item Value Reference Range Interpretation Comments Creatinine POC (test 2.4 mg/dL 0.6-1.3 H Physici an Notified code = 81786271) eGFR If non- Am 30 See_Comment L [Aut omated message] (test code = 10748147) The s ystem which generated this result transmit dain reference range : >=90 mL/min/1.7 3 m2. The reference r meredith was not used to interpret this result as normal/abnormal . eGFR If Am (test 35 See_Comment L [A utomated message] code = 09353521) The system which generated this result transmit dain reference range : >=90 mL/min/1.7 3 m2. The reference r meredith was not used to interpret this result as normal/abnormal . Lab Interpretation (test Abnormal code = 09599-0) [facility] BMP POC docked [id number] 13:48:46 Test Item Value Reference Range Interpretation Comments Sodium POC (test code = 126 mmol/L 136-145 L 53984028) Potassium POC (test code 4.4 mmol/L 3.5-5.1 = 61361280) Chloride POC (test code 100 mmol/L 98-107 = 03497930) TCO2 POC (test code = 17 mmol/L 21-32 L Physic aylin Notified 42252500) Urea Nitrogen POC (test 36 mg/dL 7-18 H code = 71762288) Glucose POC (test code = 114 mg/dL 74-106 H 05690399) Hemoglobin POC (test 11.9 g/dL 12-16 L code = 90209804) Hematocrit POC (test 35.0 % 37.0-47.0 L code = 20069191) Lab Interpretation (test Abnormal code = 08497-9) [facility] POC docked gldojj3045-42-69 13:48:46 Test Item Value Reference Range Interpretation Comments Sodium POC (test code = 126 mmol/L 136-145 L 01397254) Potassium POC (test code 4.4 mmol/L 3.5-5.1 = 23970756) Chloride POC (test code 100 mmol/L 98-107 = 56341463) TCO2 POC (test code = 17 mmol/L 21-32 L Physic aylin Notified 76712666) Urea Nitrogen POC (test 36 mg/dL 7-18 H code = 69757672) Glucose POC (test code = 114 mg/dL 74-106 H 40836661) Hemoglobin POC (test 11.9 g/dL 12-16 L code = 82786421) Hematocrit POC (test 35.0 % 37.0-47.0 L code = 57588319) Lab Interpretation (test Abnormal code = 33927-4) [facility] POC docked [id number] 13:48:46 Test Item Value Reference Range Interpretation Comments Sodium POC (test code = 126 mmol/L 136-145 L 92044580) Potassium POC (test code 4.4 mmol/L 3.5-5.1 = 82287725) Chloride POC (test code 100 mmol/L 98-107 = 47134355) TCO2 POC (test code = 17 mmol/L 21-32 L Physic aylin Notified 85595106) Urea Nitrogen POC (test 36 mg/dL 7-18 H code = 04480056) Glucose POC (test code = 114 mg/dL 74-106 H 57068947) Hemoglobin POC (test 11.9 g/dL 12-16 L code = 45389613) Hematocrit POC (test 35.0 % 37.0-47.0 L code = 35022281) Lab Interpretation (test Abnormal code = 93192-1) [facility]ksQPEL[facility]cM[facility] ORF1ab Resp Ql OLENA+jgokq6218-27-60 20:25:16 Test Item Value Reference Range Interpretation Comments Hospitalized? (test No code = 69407-8) ICU? (test code = No 96815-8) Symptomatic as No defined by CDC? (test code = 75743-8) Employed in No Healthcare? (test code = 55056-8) Resident in a No congregate care setting (including nursing homes, residential care for people with intellectual and developmental disabilities, psychiatric treatment facilities, group homes, board and care homes, homeless halfway, foster care or other): (test code = 57965-0) SARS-CoV-2 ORF1ab NOT DETECTED Not Detected INTERPRETA TION: No Resp Ql OLENA+probe detectable levels of (test code = SARS-CoV-2 39440-4) Coronavirus (COVID-19) were present in this patient's [...] SARS-CoV-2 mole cular diagnostic assa y utilizes [employer] Team Member Mediated Amplification ( TMA) technology to r apidly detect the SARS -CoV-2 (COVID-19) viru s from respiratory adriana ples. In accordance with\\XC2A0\\the FDA's guidance docume nt "Policy for Diagnostic Test s for Coronavirus Disease-2019 du [facility] the Public [facility]", amalia s test was developed, and its performance characteristics were verified by the [facility] [facility] and is authorized for clinical diagno stic use. \\XC2A0\\[facility] s laboratory is certified under the Clinical Labora tory Improvement Amendments (CLI A) as qualified to pe rform high complexity clinical labora tory testing. POCT VBG POC docked [id number] 11:16:15 Test Item Value Reference Range Interpretation Comments pH, Pankaj POC (test code 7.32 7.33-7.43 L = 71527349) pCO2,Paknaj POC (test code 31.0 See_Comment L [Au tomated = 08174218) message] The sy stem which generated this result transmitted reference range : 38 - 50 mmHg. The reference range was not used to interpret this result as normal/abnormal . PO2, Venous POC (BKR) 44 See_Comment L [Auto mated (test code = 71351125) messa ge] The system which generated this result transmitted reference range : 50 - 75 mm Hg. The reference range was not used to interpret this result as normal/abnormal . Ionized Calcium POC 1.24 mmol/L 1.15-1.29 (test code = 36454288) HCO3, Pankaj POC (test 16 mmol/L 22-26 L code = 66221665) TCO2 POC (test code = 17 mmol/L 21-32 L 10208540) Base Deficit, Pankaj POC -9 (test code = 44329833) Sample Type (test code IVFLORENCE Physi erik Notified = 99742447) % Sat, Pankaj POC (test 77 % code = 75240911) Lab Interpretation Abnormal (test code = 73209-5) [facility] VBG POC docked [id number] 11:16:15 Test Item Value Reference Range Interpretation Comments pH, Pankaj POC (test code 7.32 7.33-7.43 L = 81131674) pCO2,Panakj POC (test code 31.0 See_Comment L [Au tomated = 63594752) message] The sy stem which generated this result transmitted reference range : 38 - 50 mmHg. The reference range was not used to interpret this result as normal/abnormal . PO2, Venous POC (BKR) 44 See_Comment L [Auto mated (test code = 09692307) messa ge] The system which generated this result transmitted reference range : 50 - 75 mm Hg. The reference range was not used to interpret this result as normal/abnormal . Ionized Calcium POC 1.24 mmol/L 1.15-1.29 (test code = 28607344) HCO3, Pankaj POC (test 16 mmol/L 22-26 L code = 99203978) TCO2 POC (test code = 17 mmol/L 21-32 L 46342970) Base Deficit, Pankaj POC -9 (test code = 25512760) Sample Type (test code STEPAN Physi erik Notified = 75614664) % Sat, Pankaj POC (test 77 % code = 83532084) Lab Interpretation Abnormal (test code = 88489-8) [facility] VBG POC docked [id number] 11:16:15 Test Item Value Reference Range Interpretation Comments pH, Pankaj POC (test code 7.32 7.33-7.43 L = 66488094) pCO2,Pankaj POC (test code 31.0 See_Comment L [Au tomated = 94396875) message] The sy stem which generated this result transmitted reference range : 38 - 50 mmHg. The reference range was not used to interpret this result as normal/abnormal . PO2, Venous POC (BKR) 44 See_Comment L [Auto mated (test code = 40691655) JournallyMea ge] The system which generated this result transmitted reference range : 50 - 75 mm Hg. The reference range was not used to interpret this result as normal/abnormal . Ionized Calcium POC 1.24 mmol/L 1.15-1.29 (test code = 62547844) HCO3, Pankaj POC (test 16 mmol/L 22-26 L code = 99989979) TCO2 POC (test code = 17 mmol/L 21-32 L 99594852) Base Deficit, Pankaj POC -9 (test code = 95221088) Sample Type (test code IVFLORENCE Physi erik Notified = 14668169) % Sat, Pankaj POC (test 77 % code = 46904518) Lab Interpretation Abnormal (test code = 06033-0) [place] [address] LEAD [id number] 20:59:5612 LEAD EKG FOR [facility] Test Date: 8510-09-10Kqz Name: DORA JOSEPH Department: 5520Patient ID: [id number] Room: Gender: M Checking Clerk: [id number]: 1970 Requested By: TANJA Garza Number: [id number] Lawson MD: Chiara Calles MeasurementsIntervals [place] Rate: 75 P: 84PR: 153 QRS: 67QRSD: 104 T: 77QT: 344 QTc: 373 Interpretive StatementsSINUS RHYTHMPOSSIBLE RIGHT VENTRICULAR CONDUCTION DELAY [RSR (QR) IN V1/V2]Electronically Signed On 01-09-2022 8:27:19 CDT by [facility] HospitalrobertnewBrandAnalyticsbakariHybrid SecurityOuachita County Medical CenterSHINE Medical Technologies [place] [address] LEAD [id number] 20:59:5612 LEAD EKG FOR [facility] Test Date: 1140-93-13Kir Name: DORA JOSEPH Department: 5520Patient ID: [id number] Room: Gender: M Checking Clerk: [id number]: 1970 Requested By: TANJA Garza Number: [id number] Reading MD: Chiara Calles MeasurementsIntervals [place] Rate: 75 P: 84PR: 153 QRS: 67QRSD: 104 T: 77QT: 344 QTc: 373 Interpretive StatementsSINUS RHYTHMPOSSIBLE RIGHT VENTR ICULAR CONDUCTION DELAY [RSR (QR) IN V1/V2]Electronically Signed On 01-09-2022 8:27:19 CDT by [facility] HospitalInvictus MedicalbakariHybrid SecurityJoshua Ville [address] LEAD [id number] 20:59:5612 LEAD EKG FOR [facility] Test Date: 7703-48-34Avi Name: DORA JOSEPH Department: 5520Patient ID: [id number] Room: Gender: M Checking Clerk: [id number]: 1970 Requested By: TANJA Garza Number: [id number] Reading MD: Chiara Calles MeasurementsIntervals [place] Rate: 75 P: 84PR: 153 QRS: 67QRSD: 104 T: 77QT: 344 QTc: 373 Interpretive StatementsSINUS RHYTHMPOSSIBLE RIGHT VENTRICULAR CONDUCTION DELAY [RSR (QR) IN V1/V2]Electronically Signed On 01-09-2022 8:27:19 CDT by [facility] Hospitalrobert newBrandAnalyticsbakariHybrid SecurityLegacy [facility] W/AUTO [id number] 23:52:00 Test Item Value Reference Range Interpretation [...] = MX#) 0.8 k/mm3 0.1-0.8 N LIVER [id number] 20:04:00 Test Item Value Reference Range Interpretation Comments TOTAL PROTEIN (test code 6.7 GM/DL 5.0-8.0 N Per formed by = PROT) 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 [facility] ALBUMIN (test code = [...] 67 UNITS/L 25-125 N TAWNY) BASIC METABOLIC [id number] 19:54:00 Test Item Value Reference Range Interpretation [...] POCGLU) 81 MG/DL - CT ABD PELVIS W/[id number] 00:00:00 [facility] JOSEPH : 1970 Sex: M Name:HOANG JOSEPH FSED : 1970 Age/S: 51 / M [address] [facility] Unit #: [id number] Loc: [place] [address] Phys: Raffaele Levi MD Acct: [id number] Dis Date: Status: PRE ER PHONE #: Exam Date: 09/23/20211999 FAX #: Reason: RUQ PAIN, VOMITING EXAMS: CPT CODE: [id number] CT ABD PELVIS W/CONT [id number] INFORMATION: Exam: CT Abdomen And Pelvis With Contrast Exam date and time: 09/23/2021 7:51 PM Age: 51 years old Clinical indication: Abdominal pain; Additional info: Ruq pain, vomiting TECHNIQUE: Imaging protocol: Computed tomography of the abdomen and pelvis with contrast. Radiation optimization: All CT scans at this facility use at least one of these dose optimization techniques: automatedexposure control; mA and/or kV adjustment per patient [...] : 1970 Age/S: 51 / M [address] [facility] [address] Unit #: [id number] Loc: [place] [address] Phys: Raffaele Levi MD Acct: [id number] Dis Date: Status: PRE ER PHONE #: Exam Date: 09/23/20211999 FAX #: Reason: RUQ PAIN, VOMITING EXAMS: CPT CODE:[id number] CT ABD PELVIS W/CONT 20142 <Continued> abdominal small bowel loops may relate to incomplete luminal distention or enteritis. 2. 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 No obstruction. at 2049 Reported and signed by: Juan Juarez M.D.CC: Raffaele Levi MD Technologist:Stephanie Albrecht RT(R)(CT) CTDI: DLP: Trnscb Date/Time: 09/23/2021 (2048) [email or web address] Orig Print D/T: S: 09/23/2021 (2049) PAGE 2 Signed ReportCOMP. METABOLIC PANEL ([id number])2021-09-14 03:57:44 Test Item Value Reference Range Interpretation Comments NA (test code = 132 mmol/L 135-145 L 4522691740) K (test code = 4.1 mmol/L 3.5-5.0 4127705163) CL (test code = 101 mmol/L 98-108 8518040477) CO2 TOTAL (test code = 23 mmol/L 23-31 9815354306) AGAP (test code = 2-16 9949524289) BUN (test code = 23 mg/dL 7-23 2772895989) GLUCOSE (test code = 97 mg/dL 70-110 5214514725) CREATININE (test code = 1.48 mg/dL 0.60-1.25 H 2666961789) TOTAL BILI (test code = 0.3 mg/dL 0.1-1.0 2435102275) CALCIUM (test code = 9.0 mg/dL 8.6-10.6 1931180326) T PROTEIN (test code = 6.2 g/dL 6.3-8.2 L 4443213298) ALBUMIN (test code = 3.7 g/dL 3.5-5.0 3235167419) ALK PHOS (test code = 82 U/L 34-122 0308344321) ALTv (test code = 21 U/L 5-50 1742-6) AST(SGOT) (test code = 20 U/L 13-40 3998776658) eGFR (test code = mL/min/1.73m2 3200584148) GILBERTO (test code = GILBERTO) Association of [...] tests). Lab Interpretation Abnormal (test code = 20997-5) [facility] WITH [id number] 03:52:42 Test Item Value Reference Range Interpretation Comments WBC (test code = See_Comment [Automated 1485-2) message] The sy stem which generated this result transmitted reference range : 4.20 - 10.70 10*3/?L. The reference range was not used to interpret this result as normal/abnormal . RBC (test code = See_Comment L [Automated 068-8) message] The sy stem which generated this [...] RDW-SD (test code = 47.2 fL 38.5-51.6 76554-1) RDW-CV (test code = 14.0 % 12.1-15.4 788-0) PLT (test code = See_Comment H [Automated 777-3) message] The sy stem which generated this result transmitted reference range : 150 - 328 10*3/ ?L. The reference r meredith was not used to interpret this result as normal/abnormal . MPV (test code = 9.2 fL 9.8-13.0 L 96638-7) NRBC/100 WBC (test See_Comment [Automat ed code = 8767848640) message] The system which generated this result transmitted reference range : 0.0 - 10.0 /100 WBCs. The refer ence range was not u sed to interpret th is result as normal/abnormal . NRBC x10^3 (test code <0.01 See_Comment [Auto mated = 7845189758) message] The s ystem which generated this result transmitted reference range : 10*3/?L. The reference range was not used to interpret this result as normal/abnormal . GRAN MAT (NEUT) % 61.3 % (test code = 770-8) IMM GRAN % (test code 0.20 % = 3982052816) LYMPH % (test code = 23.1 % 736-9) MONO % (test code = 13.7 % 5905-5) EOS % (test code = 1.5 % 713-8) BASO % (test code = 0.2 % 706-2) GRAN MAT x10^3(ANC) 2.78 10*3/uL 1.99-6.95 (test code = 1205553377) IMM GRAN x10^3 (test <0.03 0.00-0.06 code = 0302213056) LYMPH x10^3 (test code 1.05 10*3/uL 1.09-3.23 L = 731-0) MONO x10^3 (test code 0.62 10*3/uL 0.36-1.02 = 742-7) EOS x10^3 (test code = 0.07 10*3/uL 0.06-0.53 711-2) BASO x10^3 (test code <0.03 0.01-0.09 = 704-7) Lab Interpretation Abnormal (test code = 87749-8) [facility] [id number] 13:36:34 Test Item Value Reference Interpretation Comments Range TROPONIN I (test 0.001 ng/mL See_Comment [Automated code = 4058195400) message] The system which generated this result [...] biotin. Lab Interpretation Normal (test code = 30924-9) [facility] [id number] 13:36:34 Test Item Value Reference Range Interpretation Comments NT-proBNP (test code 79 pg/mL See_Comment [Autom ated = 3927724488) message] The system which generated this result transmitted reference range : <=125. The reference range was not used to interpret this result as normal/abnormal . GILBERTO (test code = GILBERTO) Biotin has been reported to cause a negative bias, interpret results relative to patient's use of biotin. Lab Interpretation Normal (test code = 68636-8) [facility] (NA, K, CL, CO2, GLUCOSE, BUN, CREATININE, CA)2021-09-12 13:24:32 Test Item Value Reference Range Interpretation Comments NA (test code = 134 mmol/L 135-145 L 3818463898) K (test code = 4.3 mmol/L 3.5-5.0 2538690358) CL (test code = 102 mmol/L 98-108 9468557303) CO2 TOTAL (test code = 23 mmol/L 23-31 8742556803) AGAP (test code = 2-16 1613568447) BUN (test code = 22 mg/dL 7-23 4508143808) GLUCOSE (test code = 89 mg/dL 70-110 4868086932) CREATININE (test code = 1.69 mg/dL 0.60-1.25 H 2893573656) CALCIUM (test code = 9.0 mg/dL 8.6-10.6 4299828433) eGFR (test code = mL/min/1.73m2 0292713292) GILBERTO (test code = GILBERTO) Association of [...] tests). Lab Interpretation Abnormal (test code = 01637-0) [facility] WITH [id number] 13:09:28 Test Item Value Reference Range Interpretation [...] RDW-SD (test code = 45.3 fL 38.5-51.6 76769-8) RDW-CV (test code = 13.9 % 12.1-15.4 788-0) PLT (test code = See_Comment H [Automated 777-3) message] The sy stem which generated this result transmitted reference range : 150 - 328 10*3/ ?L. The reference r meredith was not used to interpret this result as normal/abnormal . MPV (test code = 9.0 fL 9.8-13.0 L 68354-3) NRBC/100 WBC (test See_Comment [Automat ed code = 2929251793) message] The system which generated this result transmitted reference range : 0.0 - 10.0 /100 WBCs. The refer ence range was not u sed to interpret th is result as normal/abnormal . NRBC x10^3 (test code <0.01 See_Comment [Auto mated = 3426697132) message] The s ystem which generated this result transmitted reference range : 10*3/?L. The reference range was not used to interpret this result as normal/abnormal . GRAN MAT (NEUT) % 69.7 % (test code = 770-8) IMM GRAN % (test code 0.40 % = 7975183005) LYMPH % (test code = 16.9 % 736-9) MONO % (test code = 11.9 % 5905-5) EOS % (test code = 0.7 % 713-8) BASO % (test code = 0.4 % 706-2) GRAN MAT x10^3(ANC) 3.88 10*3/uL 1.99-6.95 (test code = 1208818190) IMM GRAN x10^3 (test <0.03 0.00-0.06 code = 5006400326) LYMPH x10^3 (test code 0.94 10*3/uL 1.09-3.23 L = 731-0) MONO x10^3 (test code 0.66 10*3/uL 0.36-1.02 = 742-7) EOS x10^3 (test code = 0.04 10*3/uL 0.06-0.53 L 711-2) BASO x10^3 (test code <0.03 0.01-0.09 = 704-7) Lab Interpretation Abnormal (test code = 93830-0) [facility] WITH [id number] 05:55:28 Test Item Value Reference Range Interpretation [...] RDW-SD (test code = 45.4 fL 38.5-51.6 21480-4) RDW-CV (test code = 13.8 % 12.1-15.4 788-0) PLT (test code = See_Comment [Automated 777-3) message] The sy stem which generated this result transmitted reference range : 150 - 328 10*3/ ?L. The reference r meredith was not used to interpret this result as normal/abnormal . MPV (test code = 9.2 fL 9.8-13.0 L 07870-8) NRBC/100 WBC (test See_Comment [Automat ed code = 7921251248) message] The system which generated this result transmitted reference range : 0.0 - 10.0 /100 WBCs. The refer ence range was not u sed to interpret th is result as normal/abnormal . NRBC x10^3 (test code <0.01 See_Comment [Auto mated = 7781424152) message] The s ystem which generated this result transmitted reference range : 10*3/?L. The reference range was not used to interpret this result as normal/abnormal . GRAN MAT (NEUT) % 60.6 % (test code = 770-8) IMM GRAN % (test code 0.20 % = 6610124052) LYMPH % (test code = 25.5 % 736-9) MONO % (test code = 10.5 % 5905-5) EOS % (test code = 2.8 % 713-8) BASO % (test code = 0.4 % 706-2) GRAN MAT x10^3(ANC) 3.23 10*3/uL 1.99-6.95 (test code = 8027451388) IMM GRAN x10^3 (test <0.03 0.00-0.06 code = 6650551805) LYMPH x10^3 (test code 1.36 10*3/uL 1.09-3.23 = 731-0) MONO x10^3 (test code 0.56 10*3/uL 0.36-1.02 = 742-7) EOS x10^3 (test code = 0.15 10*3/uL 0.06-0.53 711-2) BASO x10^3 (test code <0.03 0.01-0.09 = 704-7) Lab Interpretation Abnormal (test code = 17594-2) [facility] 05:48:47 Test Item Value Reference Range Interpretation Comments LIPASE (test code = 3010977525) 116 U/L 0-220 Lab Interpretation (test code = Normal 63297-5) [facility] CenterCOMP[facility]OL[facility] PANEL (96271)2021-09-09 05:48:46 Test Item Value Reference Range Interpretation Comments NA (test code = 137 mmol/L 135-145 4070874377) K (test code = 4.0 mmol/L 3.5-5.0 2438627583) CL (test code = 108 mmol/L 98-108 4904578243) CO2 TOTAL (test code = 22 mmol/L 23-31 L 3702502907) AGAP (test code = 2-16 2644887257) BUN (test code = 23 mg/dL 7-23 6904134368) GLUCOSE (test code = 89 mg/dL 70-110 5710255788) CREATININE (test code = 1.28 mg/dL 0.60-1.25 H 4571226457) TOTAL BILI (test code = 0.4 mg/dL 0.1-1.1 7060552627) CALCIUM (test code = 8.9 mg/dL 8.6-10.6 6231664524) T PROTEIN (test code = 6.0 g/dL 6.3-8.2 L 8006394805) ALBUMIN (test code = 3.5 g/dL 3.5-5.0 1336852930) ALK PHOS (test code = 67 U/L 34-122 9870900676) ALTv (test code = 18 U/L 5-50 1742-6) AST(SGOT) (test code = 22 U/L 13-40 4631618892) eGFR (test code = mL/min/1.73m2 8283866467) GILBERTO (test code = GILBERTO) Association of [...] tests). Lab Interpretation Abnormal (test code = 34858-9) [facility]. METABOLIC PANEL (68287)2021-09-08 02:29:45 Test Item Value Reference Range Interpretation Comments NA (test code = 138 mmol/L 135-145 6489855446) K (test code = 4.3 mmol/L 3.5-5.0 8227558922) CL (test code = 106 mmol/L 98-108 9479704339) CO2 TOTAL (test code = 27 mmol/L 23-31 8194317293) AGAP (test code = 2-16 1201582534) BUN (test code = 22 mg/dL 7-23 4807757698) GLUCOSE (test code = 90 mg/dL 70-110 3928129311) CREATININE (test code = 1.36 mg/dL 0.60-1.25 H 9056820181) TOTAL BILI (test code = 0.4 mg/dL 0.1-1.4 4343587211) CALCIUM (test code = 9.2 mg/dL 8.6-10.6 6680330915) T PROTEIN (test code = 6.5 g/dL 6.3-8.2 3345998085) ALBUMIN (test code = 3.8 g/dL 3.5-5.0 2291421386) ALK PHOS (test code = 73 U/L 34-122 8587200486) ALTv (test code = 19 U/L 5-50 1742-6) AST(SGOT) (test code = 24 U/L 13-40 7272011184) eGFR (test code = mL/min/1.73m2 7434661716) GILBERTO (test code = GILBERTO) Association of [...] tests). Lab Interpretation Abnormal (test code = 27711-7) [facility] 02:29:45 Test Item Value Reference Range Interpretation Comments LIPASE (test code = 4851002441) 75 U/L 0-220 Lab Interpretation (test code = Normal 90564-3) [facility] Center[facility] WITH [id number] 02:15:21 Test Item Value Reference Range Interpretation [...] RDW-SD (test code = 45.9 fL 38.5-51.6 81326-4) RDW-CV (test code = 13.6 % 12.1-15.4 788-0) PLT (test code = See_Comment [Automated 777-3) message] The sy stem which generated this result transmitted reference range : 150 - 328 10*3/ ?L. The reference r meredith was not used to interpret this result as normal/abnormal . MPV (test code = 9.4 fL 9.8-13.0 L 96301-1) NRBC/100 WBC (test See_Comment [Automat ed code = 9972731656) message] The system which generated this result transmitted reference range : 0.0 - 10.0 /100 WBCs. The refer ence range was not u sed to interpret th is result as normal/abnormal . NRBC x10^3 (test code <0.01 See_Comment [Auto mated = 0418354915) message] The s ystem which generated this result transmitted reference range : 10*3/?L. The reference range was not used to interpret this result as normal/abnormal . GRAN MAT (NEUT) % 66.0 % (test code = 770-8) IMM GRAN % (test code 0.50 % = 6458352557) LYMPH % (test code = 20.0 % 736-9) MONO % (test code = 9.8 % 5905-5) EOS % (test code = 3.5 % 713-8) BASO % (test code = 0.2 % 706-2) GRAN MAT x10^3(ANC) 3.77 10*3/uL 1.99-6.95 (test code = 6819983159) IMM GRAN x10^3 (test 0.03 10*3/uL 0.00-0.06 code = 6285641297) LYMPH x10^3 (test code 1.14 10*3/uL 1.09-3.23 = 731-0) MONO x10^3 (test code 0.56 10*3/uL 0.36-1.02 = 742-7) EOS x10^3 (test code = 0.20 10*3/uL 0.06-0.53 711-2) BASO x10^3 (test code <0.03 0.01-0.09 = 704-7) Lab Interpretation Abnormal (test code = 17198-7) [facility] CenterL[facility] Whole [id number] 02:10:44 Test Item Value Reference Range Interpretation Comments LACTIC ACID (test code = 1.35 mmol/L 0.50-2.20 4202876140) Lab Interpretation (test code = Normal 11546-3) [facility] [id number] 15:31:19 Test Item Value Reference Range Interpretation Comments Case Report (test code Surgical Pathology ? ? = [id number]) ?Case: [id number] ? Authorizing Provider: ?Bia Pedro MD ?Collected: ? 09/03/2021800 ?Ordering Location: ? ? [facility] OR ? Received: ?09/03/2021841 ? Department ? Pathologist: ? Misael, Shaneka, ? Specimen: ? ?ILEUM, Ileostomy ( staple ?end proximal ) ? Final Diagnosis (test p6nixQJgJPZnm2aiKBGujW code = 1011064784) FuZzEwMzNcZnRuYmpcdWMx IHtccnRmMVxlcGljOTYwMV cywtRlZPHrkCKkJ7Atbzwq NSuvFU3eDI2ctWxteJHmdC DgRWSqGvWbu6rap736iWZj p6cqGRKLxjvdoOq5uVrcM1 0mx5K5LcevF66adIPqFIP9 LEXcHCYsbOPiJFRgJDD4QN TgyKBoH4peAINbQE7iqupf OYzsFZrdQYSrgPT5LZUrcV NsS5AsRQQiPSvuHVYhbrw6 BkRjZd1qjCAgrNfwBBukJQ JkXHBsYWluXGZzMjBccGFy IEEuIElMRVVNLCBJTEVPU1 IFPTz2PREbfoHuNZXdIF2u QkVOSUdOIElMRUFMIFRJU1 AOPNJIVSJRDVZPT0DWTA2T B31TDUeuAPCAS9dIPiCzKD 1IAMGPEcwLE0PARWCSEWGI RUxTLCBccGFyICAgICAgIC ORO50BICEKSM9FAUbHQZyv ZDtBW0MRS80TFTWxidxyVP JcZnMyMiBTcmkgQmhhcmF0 dVygJ0D1cZMhWHVFRaSMKS JuorqcDXI2u8klgKBwKBKq rWYgAcOiXKAdGNRpv5wsVN VmbGFuZzEwMzNcZnRuYmpc mWHqJEWtNyJdl0dof180lR Qba4xwDINaWyD0sYTgRZLq jMeektf1bRelNtNxUGFaj5 lzcyBcZmNoYXJzZXQwIEFy eZXhN070HTFwAJstk9qvn6 LyFODpsDUvp7M8ENRFYPlr LkHzF224z8qvs7sahfZuyS E4GYIgBBJ6GPqbzxWyjvY7 AFvjmMRuCxR2QHiuwyWuFY lszwKxotOrBgw9TGDkO048 LKI1lIxlm0waQKV1THQcRT EqDxzgKx8raGHpJ933CWIl WOVPMPBfdDx6KESatlEbry NghIQGf585N185u1yrKSEo ndBxpTcNnalsw3eiX755VT BhcGVydzEyMjQwXHBhcGVy wNS4MMGnQA0bttghZEnjHW dvPATypcB8HQHupZTwY5Xi BNEzYB0tkqopZMY7SOtsSU RpYDW7GnRsRYEjw1Bieyu1 VfPydf6jik10QRL0q2CbcJ ycVMF3YMD8DsGaHt6pvLEq IJNzSC4gDjUcpNQbPGRnjm 59nVzwUSfnygNbeM2rPsBp XUYjsEYcZCGuHZ0jjEKpUY YvxE8qwtvvSUTdZxEohpzk RHPkmGhhafUbRy3fkRxpYK Y8VUhrD2nfjP5kUzQ7QNwz Y4xcyZ7cQKl6QQjqtBT9NZ RmkC6tGK1dgfant6jkKWur NTzrQFFifcM9zqF0XYVouO UgF8PngZ4rGTXgQW7wgcmv e3fxAUF6VHazIFLoIKX2Fp YyKAWyi5Ewmsz4JfGna0Dh gITjGLtwJ93my464TUGjyd GaR6kcyFLnymvktBUonvvx UMsrwrM5OMBtHINjQVyoZF YxXGZzMjBcbGFuZzEwMzNc aGljaFxmMVxkYmNoXGYxXG drE9cdYzMoW2SlLCNcXxYv eBIjCHdpvRL7ASFaPFYjw3 2gdZl7GMYburbvu4VyGEMp iULclXOvwQ2akdOze4drNK LzTKPjBDOwQ6OwODK4eWQr XGYybSTtzDK6UG3dkbMdQV 1hZGUgYnkgcmVzaWRlbnRz WMKeWLwkp7iwZV0uEATruP hfmD3psLM3TUIag8fcmOFj cKHco4cpr9QvmaDwCWffUV RzRBtbXWYyMZEtAK2eGOHd dCWfrdGkg1T2ZcmbkJFwvj xeZpvhskW5BEecxyaxEIDt WVrlL1mwHlDkVYDyaMxaMf czi2OzSDFaKLCsVromsIGg fX0= Clinical Information 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] [id number]) Gross Description (test k5wmhNIsOYChvBNLSYZkNn code = [id number]) bmnwXhNABgyQTlG0Xlftja WXucWL6rIV2hoZteuLVlnN QtNQ1TDNWjOzCtCZShtNSc knHlKrGiDMXlfBJacEF1ND KuWK8wieoyQEqkZDkrVQDs soC8YOKoaDRwC8LtOQWuIT 1yyujhNEX7ZJeqoH0oyvYT LkpqXd9ewSLwzCjaGwWcCa NoYXJzZXQwXGZuaWwgQXJp UVn4yD9RMxrdONV4YXKEHp fsNHZiAF1Gf8uaGYBfqQQb ACV7ZFtxgPGwWSDlRACjAO y2KWDsPGytxXInON2oiSmg NnupnCfos1YscHHsURqtEH IvCKUaWHahYWVjLH9GLgCk RSuGCAWgXZFgKsT7VMk9RV MLBsCmZkKlGTx6Fzd7NzLk ZOj1BKn6RCcGRfFlFNR1Ql EjQsL6CWX8THGrHVceeSYf IFxcZiBBcmlhbCBcXGZzID UmDDtzSfbfMAkpI41fkOkk sY7iLmOkDNZEBaZUFJJYFH 0ysTSwCC0SEFLiCSteSJSo zFLGPBF5HU6sRXCWXithnI GiSKBpxAfwUInljW0cCE9M WRk5qiUxXHSlBjWlF4WjO3 etBN0hSAOsaiPoNEKgeBZb ZCBmcmVzaCBhbmQgbGFiZW xaSQC4hPDgSCBjBICoSPEo PZ46S6TxbnCvDLgpHWison YuBiNaHZByaYT5iTfrhQxv b8K3u020PXUhoHAcmWExWI 4fVNGjn9gcnLPeMeUxdpEu Q07hs3xgtWVpw9AmAFQ8CO 9paEeiywTdLLwbTV35HL7z MFIyIAcgZENbe9PiZHv2Kq LbP62kcP1wyHRjQ9DgSLZ2 IDQuMiBjbSBpbiBkaWFtZX Fnahohr9p6nGYcCVK9w84x LXoeXffkfXVmIgFtC58dWG hihxYaPXaywZroRGJ1sEqm UPDlzZSkHnI9UO5xKgMcc8 3rp3pafiLjouPsFCGvgEUe lTNeHJCus8WviTnhjrLqYU LskK5zIWTkHXGehKSruH5h biBpcyBvcGVuIHRvIHJldm IshQN9WL1cgRlefzFcgr8o m2b6DVZcscTeBQJjVVEbRV BrsHCnl9IzLASETLQnHOZt nnBzcRr6GKGwVIE5vZ0ruq EphkKfp8WdbYd9jFUqHYbp ZKLbQUIlpi68C7hoHKIpCT BhciANClxwYXIgDQpBMTog fGWmiXcmPLvayDQoI5beKH JuMJTyCBGfyiRxcYx3TZHi gVPiRW5DTIW5PLK6d84vDX SaZJMuPFDgqtWkaKx0HJpl DTAkXGgORsduLg74GSmdg3 KqzKjjzhRzfnEzAU99TYVt lqYdiCGnAS7HLVDwyoXZAq J3xPtnJQq6DCD9QVvqWMK9 qT9nb3pfc6XaOlYIq7Jqt8 BtdaLqx4E6QXRrkOtgaY8c FE1jecwdDPIoAPQ0q2VtBW BRHCkgoYbcwC6tHJYpY28g e8BQf3NoAZSjUIkas0sewI ulu1IrlEPvEFpvLCBmrSUh LJbouI4bIhEny1ipvQl8HM jysjK7ZOMjux1ZLaqhmY4c PdNhm8tobWi4TATSCzxdvc C3t5mqgWxea1AmrCZkCP0D Cn0= Disclaimer (test code = v8jdmCQsUUAvd8xbVNOwdJ [id number]) FuZzEwMzNcZnRuYmpcdWMx JQybapJiEDunp1UjR5PgBc AwMFxhbnNpXGRlZmxhbmcx ETVgCSK6cuEkQGFfHQuuXV UbMVojJd6ayZXvaOvaVyZz VRMsx4bhdaHJKSjyGpVtI7 85SWAuXJbtp9kzk9TfHTZd nUUtb2N0LVCVltxxwYl3mL aeG57qh3M8VqkpT8lwBKXi UYVzZ1AiBK4xTQLtPye0SH Y7EGS9FZCeUWAeV6BpZC0h ZKZyhKVwQVq3a2aqhRijPN IcLTP0o1uiUAovwiEqFJ7w zm6acRb0b3deeaUqDSPxKU DbaIYYLFAeE8UazRmeTo1n bOj2bSmuUgupPKP7Olk3UT 7ozw88hpc4bNyjMGMbkoua QuK0OPfzJMJaocptBSi8ZG bbYBYauGL5LPOupHViV7Cq UTNuNV9xzdu0FUL1JAnfGV QxFuN4DZRkjPJsOGDsvCmm HTozl086LAY7JuXkZH0rA5 Cym4X2gA7ydNSmWCDkmXOg XoXlGXPvdp4fpOQpOMttk0 BdJGF6qsD9vUJnmMLjNDQt WC72Kplpw0CvJgtph6FrO9 0tzJE3MJjjt2zmKY3kCfW7 nzZhVVhoj7xplS5wMvY3OM inOC5zVO8iIRKytW4ahqey XHBnYnJkcmhlYWRccGdicm OhLb9jjCfuHFQ9QVwxX1ft dW3fEgM9MYgjP2ndzE4bCQ x5YKherLE4KRTfxY5aVM1m nxohs9cjRUawQMimUXAmle D9aoC7PZUhnMIlW6MtnD3i LZFsQN7wrilif5jrSQA0CY pdZKDkBMO7XgElEVNta8Am ycb8FzQcy6VvqTGiTPhkU8 1dg864GHAcfgUlV2kvsAPy hxmyoVFoysceLSzjkuE5IM XagrEjx5XgGAOuYTZ9QVnc WKiffXXoHWUdeZqtr0ypS4 RscGFyXHBsYWluXGYxXGZz MjBcbGFuZzEwMzNcaGljaF dcGQgzAaAeGMFqUJhsB7pw CnCfB2NaHFYjLzEboFSeD2 ggVGhpcyByZXBvcnQgbWF5 OPhxI1u4VIVsdeUfwRu5il NgBgOvDZEoBWM5EYuowKOn OFZsw0CdackefOAxPh3saX GePWLzyH4zJTCuFOYvLDbw SL1byIc4VTRKtZEmtNGvKj IIOALzJF40inKcFUNJatla u9E3YPtyKGSsd8NfcMIoP1 kep4ZwUPNng46eDJ2cj5W3 k1zvPMQ7HB2ma2TvWIYzmW ZlmJHvAOPik3Fogjgwf6Dc WXShcyAsz5RiCNTpcdKhcK UeHQIkzxNmbt5pstYaWYDy HEPbR9EcqlvlkBjizoGxKZ Ywov0wdpZxCWD8GTLPMTDh FNGgj5AiqT9ijDNTLSI2xJ Ugmu9gipJQoFJzBUXuwg64 MAJpPI2wJ8emUMXyHDMzlv QuiLQis1NeXWOcfXT4vOOa MS7YAwWUr58pHUHzNBXMts WtSGOvnIptzSL3nmS5nY4b IChGREEpLlx+IFRoZSBGRE NuMP8qwoQdz5DbinQtnMve KYIjiQFjh5CrtRQpd4DzeB nzb6BhpELxfBAkKA6rDGOg clxwYXIgVVRNQiBMYWJvcm U2u8NjKLUwFTZsATB7vEvf ghx5ZCSlaR6iCAMpI1ngee jbTDkzRZGcc5RiiV9zvQTO xEZvs0LmyORgzCARvUMpLC 5qiuJnWIkRUHgUQPK3qfKr QVUsy5JlVBwiG2hzT03pcX msaDu5pSJ3JMA7mK6zNpt+ IFxwYXJccGFyIEFwcHJvcH WqCBMnzZlhkfBrU4SqybKo vK9auJIfhfRsQV1xJN8pP5 T4jMRzZMJcjdEek6ynYUak dmUgYmVlbiByZXZpZXdlZC Qfz8QuRVcvGEI6LCvhaoXd bmNsdWRpbmcgSCZFLCBTcG RomYFnDOB7LSspjnUbueIv TR0joW7dgEdqrA2kmNBueR F1tlmrHBCbOKIkxBotVDZx LC5mpGMyWMFpvhNCqMnpmC VbiE3rI1PzNQXgMGWqjw0m LAFnkU1dOQgsz5MydulnPH TfUEMdDZAgtsGfib1xWRDn yWHZXZ5ISHgqhYKgr5Fqlm QpF3uXHJQ3DKYtAxLeAeqq GYEvfBKnoPQmOIJasf36ER BtvL1wmSptBHIaiO9kfM0s gGnzhB5xSpIzXwEmYIzjZF 0xDNXlR1kfdUAvEQHoSHKi M4poVeJluM2kwDwzOFekMz JiTeMpTRjiJBQ7rX== Embedded Images (test code = 2147374925) [facility] [id number] 09:01:06 Test Item Value Reference Range Interpretation Comments Blood Culture-Aerobic No organisms No growth Previo us (test code = 99391-8) isolated prelim inary verified result was Culture In Progress on 08/31/2021 at 060 1 CSTPrevious preliminary verified result was No growth a t 24 hours on 09/01/2021 at 030 1 CSTPrevious preliminary verified result was No growth a t 48 hours on 09/02/2021 at 03 01 CSTPrevious preliminary verified result was No growth a t 72 hours on 09/03/2021 at 03 01 MANAGER OF APPLICATION DEVELOPMENT Blood No organisms No growth Previous Culture-Anaerobic isolated preliminar y (test code = 79912-5) javii ed result was Culture In Progress on 08/31/2021 at 060 1 CSTPrevious preliminary verified result was No growth a t 24 hours on 09/01/2021 at 030 1 CSTPrevious preliminary verified result was No growth a t 48 hours on 09/02/2021 at 03 01 CSTPrevious preliminary verified result was No growth a t 72 hours on 09/03/2021 at 03 01 MANAGER OF APPLICATION DEVELOPMENT Lab Interpretation Normal (test code = 45592-9) [facility] METABOLIC PANEL (NA, K, CL, CO2, GLUCOSE, BUN, CREATININE, CA)2021-09-04 13:22:54 Test Item Value Reference Range Interpretation Comments NA (test code = 132 mmol/L 135-145 L 3335443213) K (test code = 4.3 mmol/L 3.5-5.0 9658866678) CL (test code = 104 mmol/L 98-108 6044794426) CO2 TOTAL (test code = 23 mmol/L 23-31 0596608200) AGAP (test code = 2-16 7477580775) BUN (test code = 15 mg/dL 7-23 3552753455) GLUCOSE (test code = 96 mg/dL 70-110 4847495886) CREATININE (test code = 1.42 mg/dL 0.60-1.25 H 7390297840) CALCIUM (test code = 8.7 mg/dL 8.6-10.6 4580232216) eGFR (test code = mL/min/1.73m2 4766157112) GILBERTO (test code = GILBERTO) Association of [...] tests). Lab Interpretation Abnormal (test code = 37450-8) [facility] (NA, K, CL, CO2, GLUCOSE, BUN, CREATININE, CA)2021-09-04 13:22:54 Test Item Value Reference Range Interpretation Comments NA (test code = 132 mmol/L 135-145 L 9256472922) K (test code = 4.3 mmol/L 3.5-5.0 9543821947) CL (test code = 104 mmol/L 98-108 8698442904) CO2 TOTAL (test code = 23 mmol/L 23-31 3944618542) AGAP (test code = 2-16 5888989773) BUN (test code = 15 mg/dL 7-23 1629660579) GLUCOSE (test code = 96 mg/dL 70-110 1453592017) CREATININE (test code = 1.42 mg/dL 0.60-1.25 H 4260719212) CALCIUM (test code = 8.7 mg/dL 8.6-10.6 1454018284) eGFR (test code = mL/min/1.73m2 3268055497) GILBERTO (test code = GILBERTO) Association of [...] tests). Lab Interpretation Abnormal (test code = 75487-4) [facility] CULTURE [id number] 17:16:36 Test Item Value Reference Range Interpretation Comments Blood Culture Coagulase negative Addition al Workup (test Staphylococcus work-up perfo rmed code = 600-7) only per reque st. Culture plate(s ) will be saved until this date : - 09/08/21 Gram stain Isolated from aerobic (test code = bottle Gram positive 664-3) cocci in clusters [facility] CULTURE [id number] 17:16:36 Test Item Value Reference Range Interpretation Comments Blood Culture Coagulase negative Addition al Workup (test Staphylococcus work-up perfo rmed code = 600-7) only per reque st. Culture plate(s ) will be saved until this date : - 09/08/21 Gram stain Isolated from aerobic (test code = bottle Gram positive 664-3) cocci in [facility] Culture - Peripheral Vein # 17:16:26 Test Item Value Reference Range Interpretation Comments Blood Culture-Aerobic Culture positive. No growth AA P revious (test code = 78128-7) See Blood Culture p reliminary Workup for verified result additional was Culture In information. Progress on 08/31/2021 at 060 1 MANAGER OF APPLICATION DEVELOPMENT Blood No organisms No growth Previous Culture-Anaerobic isolated preliminar y (test code = 17017-9) verifi ed result was Culture In Progress on 09/01/2021 at 012 7 MANAGER OF APPLICATION DEVELOPMENT Lab Interpretation Abnormal (test code = 63707-6) [facility] Ve[facility] # [id number] 17:16:26 Test Item Value Reference Range Interpretation Comments Blood Culture-Aerobic Culture positive. No growth AA P revious (test code = 98467-0) See Blood Culture p reliminary Workup for verified result additional was Culture In information. Progress on 08/31/2021 at 060 1 MANAGER OF APPLICATION DEVELOPMENT Blood No organisms No growth Previous Culture-Anaerobic isolated preliminar y (test code = 61238-8) verifi ed result was Culture In Progress on 09/01/2021 at 012 7 MANAGER OF APPLICATION DEVELOPMENT Lab Interpretation Abnormal (test code = 90232-0) [facility] (NA, K, CL, CO2, GLUCOSE, BUN, CREATININE, CA)2021-09-03 12:16:04 Test Item Value Reference Range Interpretation Comments NA (test code = 130 mmol/L 135-145 L 5699977840) K (test code = 4.1 mmol/L 3.5-5.0 2869254431) CL (test code = 103 mmol/L 98-108 4181395242) CO2 TOTAL (test code = 21 mmol/L 23-31 L 9085544642) AGAP (test code = 2-16 2141081074) BUN (test code = 14 mg/dL 7-23 0564345286) GLUCOSE (test code = 90 mg/dL 70-110 9427578959) CREATININE (test code = 1.28 mg/dL 0.60-1.25 H 8514867341) CALCIUM (test code = 8.8 mg/dL 8.6-10.6 3046120891) eGFR (test code = mL/min/1.73m2 5136189789) GILBERTO (test code = GILBERTO) Association of [...] tests). Lab Interpretation Abnormal (test code = 32270-1) [facility] METABOLIC PANEL (NA, K, CL, CO2, GLUCOSE, BUN, CREATININE, CA)2021-09-03 12:16:04 Test Item Value Reference Range Interpretation Comments NA (test code = 130 mmol/L 135-145 L 0595893906) K (test code = 4.1 mmol/L 3.5-5.0 6149539327) CL (test code = 103 mmol/L 98-108 3854812581) CO2 TOTAL (test code = 21 mmol/L 23-31 L 3043662130) AGAP (test code = 2-16 6881914737) BUN (test code = 14 mg/dL 7-23 1007439224) GLUCOSE (test code = 90 mg/dL 70-110 4798752087) CREATININE (test code = 1.28 mg/dL 0.60-1.25 H 0063474293) CALCIUM (test code = 8.8 mg/dL 8.6-10.6 0025479634) eGFR (test code = mL/min/1.73m2 2050904344) GILBERTO (test code = GILBERTO) Association of [...] tests). Lab Interpretation Abnormal (test code = 84158-4) [facility] WITHOUT [id number] 11:53:39 Test Item Value Reference Range Interpretation Comments WBC (test code = 6690-2) See_Comment [A utomated message] The system [employer] generated this result transmit dain reference range : 4.20 - 10.70 10*3/?L. The reference range was not used to interpret this result as normal/abnormal . RBC (test code = 789-8) See_Comment L [Au tomated message] The system [employer] generated this result transmit dain reference range [...] 777-3) See_Comment [Au tomated message] The system [employer] generated this result transmit dain reference range : 150 - 328 10*3/?L. The reference range was not used to interpret this result as normal/abnormal . MPV (test code = 10.1 fL 9.8-13.0 79644-1) RDW-CV (test code = 13.5 % 12.1-15.4 788-0) RDW-SD (test code = 44.6 fL 38.5-51.6 58278-7) NRBC x10^3 (test code = <0.01 See_Comment [Au tomated message] 2245717912) The system [employer] generated this result transmit dain reference range : 10*3/?L. The reference range was not used to interpret this result as normal/abnormal . NRBC/100 WBC (test code See_Comment [Au tomated message] = 0746535382) The system [employer] generated this result transmit dain reference range : 0.0 - 10.0 /100 WBC s. The reference r meredith was not used to interpret this result as normal/abnormal . IPF % (test code = 5972592475) Lab Interpretation (test Abnormal code = 88967-4) [facility] WITHOUT [id number] 11:53:39 Test Item Value Reference Range Interpretation Comments WBC (test code = 6690-2) See_Comment [A utomated message] The system [employer] generated this result transmit dain reference range : 4.20 - 10.70 10*3/?L. The reference range was not used to interpret this result as normal/abnormal . RBC (test code = 789-8) See_Comment L [Au tomated message] The system [employer] generated this result transmit dain reference range [...] 777-3) See_Comment [Au tomated message] The system [employer] generated this result transmit dain reference range : 150 - 328 10*3/?L. The reference range was not used to interpret this result as normal/abnormal . MPV (test code = 10.1 fL 9.8-13.0 93998-0) RDW-CV (test code = 13.5 % 12.1-15.4 788-0) RDW-SD (test code = 44.6 fL 38.5-51.6 11857-1) NRBC x10^3 (test code = <0.01 See_Comment [Au tomated message] 6577370120) The system [employer] generated this result transmit dain reference range : 10*3/?L. The reference range was not used to interpret this result as normal/abnormal . NRBC/100 WBC (test code See_Comment [Au tomated message] = 1341404653) The system [facility] generated this result transmit dain reference range : 0.0 - 10.0 /100 WBC s. The reference r meredith was not used to interpret this result as normal/abnormal . IPF % (test code = 3040254703) Lab Interpretation (test Abnormal code = 04412-6) [facility] METABOLIC PANEL (NA, K, CL, CO2, GLUCOSE, BUN, CREATININE, CA)2021-09-02 12:06:01 Test Item Value Reference Range Interpretation Comments NA (test code = 132 mmol/L 135-145 L 0543231854) K (test code = 4.4 mmol/L 3.5-5.0 3934494069) CL (test code = 106 mmol/L 98-108 6884798535) CO2 TOTAL (test code = 22 mmol/L 23-31 L 4388931616) AGAP (test code = 2-16 0878158025) BUN (test code = 16 mg/dL 7-23 5751066972) GLUCOSE (test code = 83 mg/dL 70-110 4814907675) CREATININE (test code = 1.33 mg/dL 0.60-1.25 H 4470353126) CALCIUM (test code = 8.8 mg/dL 8.6-10.6 7034206517) eGFR (test code = mL/min/1.73m2 2555095351) GILBERTO (test code = GILBERTO) Association of [...] tests). Lab Interpretation Abnormal (test code = 11078-8) [facility] METABOLIC PANEL (NA, K, CL, CO2, GLUCOSE, BUN, CREATININE, CA)2021-09-02 12:06:01 Test Item Value Reference Range Interpretation Comments NA (test code = 132 mmol/L 135-145 L 7060130450) K (test code = 4.4 mmol/L 3.5-5.0 4127525217) CL (test code = 106 mmol/L 98-108 8472533828) CO2 TOTAL (test code = 22 mmol/L 23-31 L 6164050848) AGAP (test code = 2-16 9432149504) BUN (test code = 16 mg/dL 7-23 9671187316) GLUCOSE (test code = 83 mg/dL 70-110 1986398964) CREATININE (test code = 1.33 mg/dL 0.60-1.25 H 5643078530) CALCIUM (test code = 8.8 mg/dL 8.6-10.6 2135592288) eGFR (test code = mL/min/1.73m2 5041237589) GILBERTO (test code = GILBERTO) Association of [...] tests). Lab Interpretation Abnormal (test code = 79271-3) [facility] (NA, K, CL, CO2, GLUCOSE, BUN, CREATININE, CA)2021-09-01 21:55:22 Test Item Value Reference Range Interpretation Comments NA (test code = 130 mmol/L 135-145 L 6356138763) K (test code = 4.2 mmol/L 3.5-5.0 8561429231) CL (test code = 103 mmol/L 98-108 6575778747) CO2 TOTAL (test code = 20 mmol/L 23-31 L 8865331985) AGAP (test code = 2-16 6283843485) BUN (test code = 20 mg/dL 7-23 1769132583) GLUCOSE (test code = 106 mg/dL 70-110 3485256006) CREATININE (test code = 1.51 mg/dL 0.60-1.25 H 2435314694) CALCIUM (test code = 8.5 mg/dL 8.6-10.6 L 8836094236) eGFR (test code = mL/min/1.73m2 8640683708) GILBERTO (test code = GILBERTO) Association of [...] tests). Lab Interpretation Abnormal (test code = 02780-5) [facility] METABOLIC PANEL (NA, K, CL, CO2, GLUCOSE, BUN, CREATININE, CA)2021-09-01 21:55:22 Test Item Value Reference Range Interpretation Comments NA (test code = 130 mmol/L 135-145 L 4651211816) K (test code = 4.2 mmol/L 3.5-5.0 5299514547) CL (test code = 103 mmol/L 98-108 8069820223) CO2 TOTAL (test code = 20 mmol/L 23-31 L 2541261170) AGAP (test code = 2-16 9066317708) BUN (test code = 20 mg/dL 7-23 9175086800) GLUCOSE (test code = 106 mg/dL 70-110 2220329892) CREATININE (test code = 1.51 mg/dL 0.60-1.25 H 9373311901) CALCIUM (test code = 8.5 mg/dL 8.6-10.6 L 5154574909) eGFR (test code = mL/min/1.73m2 4078831083) GILBERTO (test code = GILBERTO) Association of [...] tests). Lab Interpretation Abnormal (test code = 69530-1) [facility] POSITIVE BLOOD PATHOGENS DNA [id number] 10:31:32 Test Item Value Reference Range Interpretation Comments Coagulase Negative Positive Negative, See A Staphylococcus (test Comment/Narrative code = 40052-7) GILBERTO (test code = GILBERTO) Coagulase negative [...] contact the Antimicrobial Stewardship Program with questions.Pager: ?[phone] Testing included eleven identification and three resistance marker targets. Lab Interpretation Abnormal (test code = 41286-2) [facility] POSITIVE BLOOD PATHOGENS DNA [id number] 10:31:32 Test Item Value Reference Range Interpretation Comments Coagulase Negative Positive Negative, See A Staphylococcus (test Comment/Narrative code = 78886-7) GILBERTO (test code = GILBERTO) Coagulase negative [...] contact the Antimicrobial Stewardship Program with questions.Pager: ?[phone] Testing included eleven identification and three resistance marker targets. Lab Interpretation Abnormal (test code = 74367-4) [facility] (NA, K, CL, CO2, GLUCOSE, BUN, CREATININE, CA)2021-09-01 08:38:47 Test Item Value Reference Range Interpretation Comments NA (test code = 130 mmol/L 135-145 L 7532779584) K (test code = 4.0 mmol/L 3.5-5.0 7733890962) CL (test code = 105 mmol/L 98-108 7257789821) CO2 TOTAL (test code = 20 mmol/L 23-31 L 1678560576) AGAP (test code = 2-16 1990865862) BUN (test code = 21 mg/dL 7-23 7537434114) GLUCOSE (test code = 88 mg/dL 70-110 9441497750) CREATININE (test code = 1.31 mg/dL 0.60-1.25 H 4247376065) CALCIUM (test code = 8.5 mg/dL 8.6-10.6 L 3087129127) eGFR (test code = mL/min/1.73m2 8263972668) GILBERTO (test code = GILBERTO) Association of [...] tests). Lab Interpretation Abnormal (test code = 93227-9) [facility] (NA, K, CL, CO2, GLUCOSE, BUN, CREATININE, CA)2021-09-01 08:38:47 Test Item Value Reference Range Interpretation Comments NA (test code = 130 mmol/L 135-145 L 4709321106) K (test code = 4.0 mmol/L 3.5-5.0 4305657665) CL (test code = 105 mmol/L 98-108 8724783677) CO2 TOTAL (test code = 20 mmol/L 23-31 L 2430459428) AGAP (test code = 2-16 3806204176) BUN (test code = 21 mg/dL 7-23 2219134478) GLUCOSE (test code = 88 mg/dL 70-110 4019130380) CREATININE (test code = 1.31 mg/dL 0.60-1.25 H 2700615191) CALCIUM (test code = 8.5 mg/dL 8.6-10.6 L 5820348022) eGFR (test code = mL/min/1.73m2 6512971494) GILBERTO (test code = GILBERTO) Association of [...] tests). Lab Interpretation Abnormal (test code = 89596-6) [facility] WITH [id number] 08:13:43 Test Item Value Reference Range Interpretation Comments WBC (test code = See_Comment [Automated 3414-2) message] The sy stem which generated this [...] RDW-SD (test code = 43.0 fL 38.5-51.6 77926-5) RDW-CV (test code = 13.7 % 12.1-15.4 788-0) PLT (test code = See_Comment [Automated 777-3) message] The sy stem which generated this result transmitted reference range : 150 - 328 10*3/ ?L. The reference r meredith was not used to interpret this result as normal/abnormal . MPV (test code = 9.9 fL 9.8-13.0 57121-5) NRBC/100 WBC (test See_Comment [Automat ed code = 5320853853) message] The system which generated this result transmitted reference range : 0.0 - 10.0 /100 WBCs. The refer ence range was not u sed to interpret th is result as normal/abnormal . NRBC x10^3 (test code <0.01 See_Comment [Auto mated = 0033272566) message] The s ystem which generated this result transmitted reference range : 10*3/?L. The reference range was not used to interpret this result as normal/abnormal . GRAN MAT (NEUT) % 48.2 % (test code = 770-8) IMM GRAN % (test code 0.40 % = 7730646545) LYMPH % (test code = 39.5 % 736-9) MONO % (test code = 9.0 % 5905-5) EOS % (test code = 2.3 % 713-8) BASO % (test code = 0.6 % 706-2) GRAN MAT x10^3(ANC) 2.35 10*3/uL 1.99-6.95 (test code = 2145693630) IMM GRAN x10^3 (test <0.03 0.00-0.06 code = 3904688631) LYMPH x10^3 (test code 1.93 10*3/uL 1.09-3.23 = 731-0) MONO x10^3 (test code 0.44 10*3/uL 0.36-1.02 = 742-7) EOS x10^3 (test code = 0.11 10*3/uL 0.06-0.53 711-2) BASO x10^3 (test code 0.03 10*3/uL 0.01-0.09 = 704-7) Lab Interpretation Abnormal (test code = 14623-5) [facility] WITH [id number] 08:13:43 Test Item Value Reference Range Interpretation [...] RDW-SD (test code = 43.0 fL 38.5-51.6 86097-0) RDW-CV (test code = 13.7 % 12.1-15.4 788-0) PLT (test code = See_Comment [Automated 777-3) message] The sy stem which generated this result transmitted reference range : 150 - 328 10*3/ ?L. The reference r meredith was not used to interpret this result as normal/abnormal . MPV (test code = 9.9 fL 9.8-13.0 12129-6) NRBC/100 WBC (test See_Comment [Automat ed code = 3483513123) message] The system which generated this result transmitted reference range : 0.0 - 10.0 /100 WBCs. The refer ence range was not u sed to interpret th is result as normal/abnormal . NRBC x10^3 (test code <0.01 See_Comment [Auto mated = 7685304176) message] The s ystem which generated this result transmitted reference range : 10*3/?L. The reference range was not used to interpret this result as normal/abnormal . GRAN MAT (NEUT) % 48.2 % (test code = 770-8) IMM GRAN % (test code 0.40 % = 4871412820) LYMPH % (test code = 39.5 % 736-9) MONO % (test code = 9.0 % 5905-5) EOS % (test code = 2.3 % 713-8) BASO % (test code = 0.6 % 706-2) GRAN MAT x10^3(ANC) 2.35 10*3/uL 1.99-6.95 (test code = 6793938109) IMM GRAN x10^3 (test <0.03 0.00-0.06 code = 7151775634) LYMPH x10^3 (test code 1.93 10*3/uL 1.09-3.23 = 731-0) MONO x10^3 (test code 0.44 10*3/uL 0.36-1.02 = 742-7) EOS x10^3 (test code = 0.11 10*3/uL 0.06-0.53 711-2) BASO x10^3 (test code 0.03 10*3/uL 0.01-0.09 = 704-7) Lab Interpretation Abnormal (test code = 76869-7) [facility] [id number] 06:37:20 Test Item Value Reference Range Interpretation Comments MAGNESIUM (test code = 4409344959) 1.9 mg/dL 1.7-2.4 Lab Interpretation (test code = Normal 26819-0) [facility] [id number] 06:37:20 Test Item Value Reference Range Interpretation Comments MAGNESIUM (test code = 0258594196) 1.9 mg/dL 1.7-2.4 Lab Interpretation (test code = Normal 64398-7) [facility] (NA, K, CL, CO2, GLUCOSE, BUN, CREATININE, CA)2021-09-01 02:46:47 Test Item Value Reference Range Interpretation Comments NA (test code = 132 mmol/L 135-145 L 6416574817) K (test code = 4.0 mmol/L 3.5-5.0 6370872847) CL (test code = 102 mmol/L 98-108 5673288266) CO2 TOTAL (test code = 21 mmol/L 23-31 L 3461511951) AGAP (test code = 2-16 9320396607) BUN (test code = 24 mg/dL 7-23 H 1666372492) GLUCOSE (test code = 95 mg/dL 70-110 8506744091) CREATININE (test code = 1.40 mg/dL 0.60-1.25 H 2555277483) CALCIUM (test code = 8.6 mg/dL 8.6-10.6 9059267316) eGFR (test code = mL/min/1.73m2 3179681040) GILBERTO (test code = GILBERTO) Association of [...] tests). Lab Interpretation Abnormal (test code = 54207-4) [facility] METABOLIC PANEL (NA, K, CL, CO2, GLUCOSE, BUN, CREATININE, CA)2021-09-01 02:46:47 Test Item Value Reference Range Interpretation Comments NA (test code = 132 mmol/L 135-145 L 9937996426) K (test code = 4.0 mmol/L 3.5-5.0 0273853707) CL (test code = 102 mmol/L 98-108 5378000602) CO2 TOTAL (test code = 21 mmol/L 23-31 L 2657357601) AGAP (test code = 2-16 4218437988) BUN (test code = 24 mg/dL 7-23 H 3997400095) GLUCOSE (test code = 95 mg/dL 70-110 7598797860) CREATININE (test code = 1.40 mg/dL 0.60-1.25 H 6357780292) CALCIUM (test code = 8.6 mg/dL 8.6-10.6 7346802799) eGFR (test code = mL/min/1.73m2 2105549688) GILBERTO (test code = GILBERTO) Association of [...] tests). Lab Interpretation Abnormal (test code = 90597-5) [facility] Acid Whole [id number] 12:49:48 Test Item Value Reference Range Interpretation Comments LACTIC ACID (test code = 2.02 mmol/L 0.50-2.20 QUE S [id number]) Lab Interpretation (test code = Normal 68156-0) [facility] Acid Whole [id number] 12:49:48 Test Item Value Reference Range Interpretation Comments LACTIC ACID (test code = 2.02 mmol/L 0.50-2.20 QUE S [id number]) Lab Interpretation (test code = Normal 77429-7) [facility] (NA, K, CL, CO2, GLUCOSE, BUN, CREATININE, CA)2021-08-31 12:29:06 Test Item Value Reference Range Interpretation Comments NA (test code = 129 mmol/L 135-145 L [id number]) K (test code = 3.6 mmol/L 3.5-5.0 2558736908) CL (test code = 101 mmol/L 98-108 6019388984) CO2 TOTAL (test code = 18 mmol/L 23-31 L 0610313395) AGAP (test code = 2-16 5101840375) BUN (test code = 35 mg/dL 7-23 H 7969941737) GLUCOSE (test code = 97 mg/dL 70-110 4963067110) CREATININE (test code = 1.58 mg/dL 0.60-1.25 H 8875659986) CALCIUM (test code = 8.3 mg/dL 8.6-10.6 L 0732574498) eGFR (test code = mL/min/1.73m2 3991523655) GILBERTO (test code = GILBERTO) Association of [...] tests). Lab Interpretation Abnormal (test code = 65764-8) [facility] (NA, K, CL, CO2, GLUCOSE, BUN, CREATININE, CA)2021-08-31 12:29:06 Test Item Value Reference Range Interpretation Comments NA (test code = 129 mmol/L 135-145 L 9774256598) K (test code = 3.6 mmol/L 3.5-5.0 3519291072) CL (test code = 101 mmol/L 98-108 8492654702) CO2 TOTAL (test code = 18 mmol/L 23-31 L 8315935261) AGAP (test code = 2-16 7446162078) BUN (test code = 35 mg/dL 7-23 H 5761195877) GLUCOSE (test code = 97 mg/dL 70-110 0022086216) CREATININE (test code = 1.58 mg/dL 0.60-1.25 H 9722814174) CALCIUM (test code = 8.3 mg/dL 8.6-10.6 L 0580694547) eGFR (test code = mL/min/1.73m2 2936554204) GILBERTO (test code = GILBERTO) Association of [...] tests). Lab Interpretation Abnormal (test code = 85264-8) [facility] [id number] 07:42:44 Test Item Value Reference Range Interpretation Comments TSH (test code = See_Comment [Automated message] [id number]) The system [employer] generated this result transmitted ref erence range: 0.45 - 4 .70 mIU/L. The refe rence range was not u sed to interpret this result as normal/abnor mal. Lab Interpretation (test Normal code = 15320-7) [facility] [id number] 07:42:44 Test Item Value Reference Range Interpretation Comments TSH (test code = See_Comment [Automated message] [id number]) The system [employer] generated this result transmitted ref erence range: 0.45 - 4 .70 mIU/L. The refe rence range was not u sed to interpret this result as normal/abnor mal. Lab Interpretation (test Normal code = 81662-6) [facility] METABOLIC PANEL (NA, K, CL, CO2, GLUCOSE, BUN, CREATININE, CA)2021-08-31 07:40:43 Test Item Value Reference Range Interpretation Comments NA (test code = 129 mmol/L 135-145 L 9548393781) K (test code = 3.8 mmol/L 3.5-5.0 Slight 7169673319) hemolysis CL (test code = 102 mmol/L 98-108 0201238510) CO2 TOTAL (test code 18 mmol/L 23-31 L = 7504733695) AGAP (test code = 2-16 4830848943) BUN (test code = 46 mg/dL 7-23 H Slight 5117036307) hemolysis GLUCOSE (test code = 100 mg/dL 70-110 0363719667) CREATININE (test code 1.72 mg/dL 0.60-1.25 H = 4571462675) CALCIUM (test code = 8.5 mg/dL 8.6-10.6 L 9284005800) eGFR (test code = mL/min/1.73m2 2441472385) GILBERTO (test code = GILBERTO) Association of [...] tests). Lab Interpretation Abnormal (test code = 60779-2) [facility] (NA, K, CL, CO2, GLUCOSE, BUN, CREATININE, CA)2021-08-31 07:40:43 Test Item Value Reference Range Interpretation Comments NA (test code = 129 mmol/L 135-145 L 0910147758) K (test code = 3.8 mmol/L 3.5-5.0 Slight 4622160236) hemolysis CL (test code = 102 mmol/L 98-108 4491249834) CO2 TOTAL (test code 18 mmol/L 23-31 L = 7727436156) AGAP (test code = 2-16 3315034997) BUN (test code = 46 mg/dL 7-23 H Slight 6001101936) hemolysis GLUCOSE (test code = 100 mg/dL 70-110 4807223507) CREATININE (test code 1.72 mg/dL 0.60-1.25 H = 8716680410) CALCIUM (test code = 8.5 mg/dL 8.6-10.6 L 7256538409) eGFR (test code = mL/min/1.73m2 3901593394) GILBERTO (test code = GILBERTO) Association of [...] tests). Lab Interpretation Abnormal (test code = 44221-7) [facility] [id number] 07:08:01 Test Item Value Reference Range Interpretation Comments LACTIC ACID (test code = 1.96 mmol/L 0.50-2.20 QUE S 5514615528) Lab Interpretation (test code = Normal 45269-1) [facility] [id number] 07:08:01 Test Item Value Reference Range Interpretation Comments LACTIC ACID (test code = 1.96 mmol/L 0.50-2.20 QUE S 5814776291) Lab Interpretation (test code = Normal 02683-6) [facility]OSMOLALITY, SERUM OR [id number] 06:33:43 Test Item Value Reference Range Interpretation Comments OSMOLALITY (test code = See_Comment [Au tomated message] 4283776583) The system [employer] generated this result transmitted ref erence range: 278 - 30 5 mOsm/kg. The re ference range was not u sed to interpret this result as normal/abnor mal. Lab Interpretation (test Normal code = 40195-0) [facility]MOL[facility], SERUM OR [id number] 06:33:43 Test Item Value Reference Range Interpretation Comments OSMOLALITY (test code = See_Comment [Au tomated message] 5126621052) The system [employer] generated this result transmitted ref erence range: 278 - 30 5 mOsm/kg. The re ference range was not u sed to interpret this result as normal/abnor mal. Lab Interpretation (test Normal code = 97714-9) [facility] [id number] 04:28:44 Test Item Value Reference Interpretation Comments Range TROPONIN I (test 0.003 ng/mL See_Comment [Automated code = 8414882077) message] The system which generated this result [...] biotin. Lab Interpretation Normal (test code = 81806-1) [facility] [id number] 04:28:44 Test Item Value Reference Interpretation Comments Range TROPONIN I (test 0.003 ng/mL See_Comment [Automated code = 7830108153) message] The system which generated this result [...] biotin. Lab Interpretation Normal (test code = 12193-7) [facility] METABOLIC PANEL (NA, K, CL, CO2, GLUCOSE, BUN, CREATININE, CA)2021-08-31 04:07:42 Test Item Value Reference Range Interpretation Comments NA (test code = 125 mmol/L 135-145 L 2100177914) K (test code = 4.1 mmol/L 3.5-5.0 Slight 7458025962) hemolysis CL (test code = 100 mmol/L 98-108 3324313199) CO2 TOTAL (test code 17 mmol/L 23-31 L = 4584569425) AGAP (test code = 2-16 5281483998) BUN (test code = 52 mg/dL 7-23 H Slight 5241093010) hemolysis GLUCOSE (test code = 94 mg/dL 70-110 8074908050) CREATININE (test code 1.77 mg/dL 0.60-1.25 H = 1194083687) CALCIUM (test code = 8.2 mg/dL 8.6-10.6 L 8366663321) eGFR (test code = mL/min/1.73m2 6294838276) GILBERTO (test code = GILBERTO) Association of [...] tests). Lab Interpretation Abnormal (test code = 98951-7) [facility] METABOLIC PANEL (NA, K, CL, CO2, GLUCOSE, BUN, CREATININE, CA)2021-08-31 04:07:42 Test Item Value Reference Range Interpretation Comments NA (test code = 125 mmol/L 135-145 L 6606299296) K (test code = 4.1 mmol/L 3.5-5.0 Slight 1131506016) hemolysis CL (test code = 100 mmol/L 98-108 2814127532) CO2 TOTAL (test code 17 mmol/L 23-31 L = 4583423039) AGAP (test code = 2-16 6523060601) BUN (test code = 52 mg/dL 7-23 H Slight 8916563967) hemolysis GLUCOSE (test code = 94 mg/dL 70-110 1414771418) CREATININE (test code 1.77 mg/dL 0.60-1.25 H = 1002455070) CALCIUM (test code = 8.2 mg/dL 8.6-10.6 L 3962096732) eGFR (test code = mL/min/1.73m2 7145871720) GILBERTO (test code = GILBERTO) Association of [...] tests). Lab Interpretation Abnormal (test code = 85487-8) [facility]TR[facility] [id number] 00:22:59 Test Item Value Reference Interpretation Comments Range TROPONIN I (test 0.003 ng/mL See_Comment [Automated code = 5808961755) message] The system which generated this result [...] biotin. Lab Interpretation Normal (test code = 49866-1) [facility] [id number] 00:22:59 Test Item Value Reference Range Interpretation Comments NT-proBNP (test code 55 pg/mL See_Comment [Autom ated = 0777643084) message] The system which generated this result transmitted reference range : <=125. The reference range was not used to interpret this result as normal/abnormal . GILBERTO (test code = GILBERTO) Biotin has been reported to cause a negative bias, interpret results relative to patient's use of biotin. Lab Interpretation Normal (test code = 60393-5) [facility] [id number] 00:22:59 Test Item Value Reference Interpretation Comments Range TROPONIN I (test 0.003 ng/mL See_Comment [Automated code = 0551025211) message] The system which generated this result [...] biotin. Lab Interpretation Normal (test code = 55299-4) [facility] [id number] 00:22:59 Test Item Value Reference Range Interpretation Comments NT-proBNP (test code 55 pg/mL See_Comment [Autom ated = 4601084257) message] The system which generated this result transmitted reference range : <=125. The reference range was not used to interpret this result as normal/abnormal . GILBERTO (test code = GILBERTO) Biotin has been reported to cause a negative bias, interpret results relative to patient's use of biotin. Lab Interpretation Normal (test code = 71147-6) [facility]. METABOLIC PANEL ([id number])2021-08-31 00:07:17 Test Item Value Reference Range Interpretation Comments NA (test code = 126 mmol/L 135-145 L 2851026923) K (test code = 4.3 mmol/L 3.5-5.0 Slight 2798577298) hemolysis CL (test code = 96 mmol/L 98-108 L 8279508110) CO2 TOTAL (test code 18 mmol/L 23-31 L = 5140112287) AGAP (test code = 2-16 0729475965) BUN (test code = 58 mg/dL 7-23 H Slight 8359872254) hemolysis GLUCOSE (test code = 108 mg/dL 70-110 7099615361) CREATININE (test code 2.11 mg/dL 0.60-1.25 H = 7730788931) TOTAL BILI (test code 0.7 mg/dL 0.1-1.1 = 8164192231) CALCIUM (test code = 9.2 mg/dL 8.6-10.6 4798984180) T PROTEIN (test code 7.6 g/dL 6.3-8.2 = 6535463851) ALBUMIN (test code = 4.9 g/dL 3.5-5.0 9467496548) ALK PHOS (test code = 96 U/L 34-122 Slight 0672352858) hemolysis ALTv (test code = 27 U/L 5-50 1742-6) AST(SGOT) (test code 46 U/L 13-40 H Slight = 5707763263) hemolysis eGFR (test code = mL/min/1.73m2 0774375435) GILBERTO (test code = GILBERTO) Association of [...] tests). Lab Interpretation Abnormal (test code = 32198-4) [facility]. METABOLIC PANEL ([id number])2021-08-31 00:07:17 Test Item Value Reference Range Interpretation Comments NA (test code = 126 mmol/L 135-145 L 3633499373) K (test code = 4.3 mmol/L 3.5-5.0 Slight 2719058736) hemolysis CL (test code = 96 mmol/L 98-108 L 7209534449) CO2 TOTAL (test code 18 mmol/L 23-31 L = 2529610156) AGAP (test code = 2-16 7736403133) BUN (test code = 58 mg/dL 7-23 H Slight 8083454736) hemolysis GLUCOSE (test code = 108 mg/dL 70-110 1024500859) CREATININE (test code 2.11 mg/dL 0.60-1.25 H = 4774402871) TOTAL BILI (test code 0.7 mg/dL 0.1-1.1 = 2467289359) CALCIUM (test code = 9.2 mg/dL 8.6-10.6 2179510416) T PROTEIN (test code 7.6 g/dL 6.3-8.2 = 5121755433) ALBUMIN (test code = 4.9 g/dL 3.5-5.0 3645162913) ALK PHOS (test code = 96 U/L 34-122 Slight 3709519078) hemolysis ALTv (test code = 27 U/L 5-50 1742-6) AST(SGOT) (test code 46 U/L 13-40 H Slight = 3937383621) hemolysis eGFR (test code = mL/min/1.73m2 2216981232) GILBERTO (test code = GILBERTO) Association of [...] tests). Lab Interpretation Abnormal (test code = 99736-4) [facility] WITH [id number] 23:36:10 Test Item Value Reference Range Interpretation Comments WBC (test code = See_Comment [Automated 3696-2) message] The sy stem which generated this result transmitted reference range : 4.20 - 10.70 10*3/?L. The reference range was not used to interpret this result as normal/abnormal . RBC (test code = See_Comment [Automated 406-1) message] The sy stem which generated this [...] RDW-SD (test code = 41.7 fL 38.5-51.6 98128-9) RDW-CV (test code = 13.4 % 12.1-15.4 788-0) PLT (test code = See_Comment [Automated 777-3) message] The sy stem which generated this result transmitted reference range : 150 - 328 10*3/ ?L. The reference r meredith was not used to interpret this result as normal/abnormal . MPV (test code = 10.3 fL 9.8-13.0 97796-2) NRBC/100 WBC (test See_Comment [Automat ed code = 8648380505) message] The system which generated this result transmitted reference range : 0.0 - 10.0 /100 WBCs. The refer ence range was not u sed to interpret th is result as normal/abnormal . NRBC x10^3 (test code <0.01 See_Comment [Auto mated = 2332847496) message] The s ystem which generated this result transmitted reference range : 10*3/?L. The reference range was not used to interpret this result as normal/abnormal . GRAN MAT (NEUT) % 60.6 % (test code = 770-8) IMM GRAN % (test code 0.30 % = 0406584298) LYMPH % (test code = 29.1 % 736-9) MONO % (test code = 8.8 % 5905-5) EOS % (test code = 0.6 % 713-8) BASO % (test code = 0.6 % 706-2) GRAN MAT x10^3(ANC) 4.08 10*3/uL 1.99-6.95 (test code = 4327094025) IMM GRAN x10^3 (test <0.03 0.00-0.06 code = 4278944111) LYMPH x10^3 (test code 1.96 10*3/uL 1.09-3.23 = 731-0) MONO x10^3 (test code 0.59 10*3/uL 0.36-1.02 = 742-7) EOS x10^3 (test code = 0.04 10*3/uL 0.06-0.53 L 711-2) BASO x10^3 (test code 0.04 10*3/uL 0.01-0.09 = 704-7) Lab Interpretation Abnormal (test code = 66218-9) [facility] WITH [id number] 23:36:10 Test Item Value Reference Range Interpretation Comments WBC (test code = See_Comment [Automated 5690-2) message] The sy stem which [...] RDW-SD (test code = 41.7 fL 38.5-51.6 91074-1) RDW-CV (test code = 13.4 % 12.1-15.4 788-0) PLT (test code = See_Comment [Automated 777-3) message] The sy stem which generated this result transmitted reference range : 150 - 328 10*3/ ?L. The reference r meredith was not used to interpret this result as normal/abnormal . MPV (test code = 10.3 fL 9.8-13.0 14496-0) NRBC/100 WBC (test See_Comment [Automat ed code = 7029335613) message] The system which generated this result transmitted reference range : 0.0 - 10.0 /100 WBCs. The refer ence range was not u sed to interpret th is result as normal/abnormal . NRBC x10^3 (test code <0.01 See_Comment [Auto mated = 6235869787) message] The s ystem which generated this result transmitted reference range : 10*3/?L. The reference range was not used to interpret this result as normal/abnormal . GRAN MAT (NEUT) % 60.6 % (test code = 770-8) IMM GRAN % (test code 0.30 % = 4777643961) LYMPH % (test code = 29.1 % 736-9) MONO % (test code = 8.8 % 5905-5) EOS % (test code = 0.6 % 713-8) BASO % (test code = 0.6 % 706-2) GRAN MAT x10^3(ANC) 4.08 10*3/uL 1.99-6.95 (test code = 4884597728) IMM GRAN x10^3 (test <0.03 0.00-0.06 code = 2833751503) LYMPH x10^3 (test code 1.96 10*3/uL 1.09-3.23 = 731-0) MONO x10^3 (test code 0.59 10*3/uL 0.36-1.02 = 742-7) EOS x10^3 (test code = 0.04 10*3/uL 0.06-0.53 L 711-2) BASO x10^3 (test code 0.04 10*3/uL 0.01-0.09 = 704-7) Lab Interpretation Abnormal (test code = 49362-9) [facility] GROUP [id number] 00:24:00 Test Item Value Reference Range Interpretation Comments POCT GP A STREP (test code = Negative Negative - Negative 94063-1) Lab Interpretation (test code = Normal 56752-8) [facility]PREAL[facility]IN2021-[facility]-13 11:38:43 Test Item Value Reference Range Interpretation Comments PALB (test code = 17480-5) 25.2 mg/dL 18.0-45.0 Lab Interpretation (test code = Normal 61573-6) [facility]BAPSY[facility]AT[facility]ABOLIC PANEL (NA, K, CL, CO2, GLUCOSE, BUN, CREATININE, CA)2021-08-05 11:30:59 Test Item Value Reference Range Interpretation Comments NA (test code = 140 mmol/L 135-145 2098774556) K (test code = 4.2 mmol/L 3.5-5.0 5445084248) CL (test code = 110 mmol/L 98-108 H 6090729918) CO2 TOTAL (test code = 27 mmol/L 23-31 9943051608) AGAP (test code = 2-16 2389685967) BUN (test code = 9 mg/dL 7-23 3843012513) GLUCOSE (test code = 86 mg/dL 70-110 3176036402) CREATININE (test code = 1.51 mg/dL 0.60-1.25 H 0787267892) CALCIUM (test code = 8.5 mg/dL 8.6-10.6 L 8603386384) eGFR (test code = mL/min/1.73m2 2343692399) GILBERTO (test code = GILBERTO) Association of [...] tests). Lab Interpretation Abnormal (test code = 73490-7) [facility]2021-[facility]-13 11:30:59 Test Item Value Reference Range Interpretation Comments MAGNESIUM (test code = 5441599953) 2.0 mg/dL 1.7-2.4 Lab Interpretation (test code = Normal 65768-8) [facility]PH[facility]2021-[facility]-13 11:30:59 Test Item Value Reference Range Interpretation Comments PHOSPHORUS (test code = 6658284956) 5.1 mg/dL 2.5-5.0 H Lab Interpretation (test code = Abnormal 00332-1) [facility] 11:30:59 Test Item Value Reference Range Interpretation Comments ALBUMIN (test code = 9589202867) 3.1 g/dL 3.5-5.0 L Lab Interpretation (test code = Abnormal 00793-4) [facility] WITH [id number] 11:05:58 Test Item Value Reference Range Interpretation [...] RDW-SD (test code = 47.5 fL 38.5-51.6 25379-5) RDW-CV (test code = 14.0 % 12.1-15.4 788-0) PLT (test code = See_Comment [Automated 777-3) message] The sy stem which generated this result transmitted reference range : 150 - 328 10*3/ ?L. The reference r meredith was not used to interpret this result as normal/abnormal . MPV (test code = 9.5 fL 9.8-13.0 L 04407-7) NRBC/100 WBC (test See_Comment [Automat ed code = 0349211447) message] The system which generated this result transmitted reference range : 0.0 - 10.0 /100 WBCs. The refer ence range was not u sed to interpret th is result as normal/abnormal . NRBC x10^3 (test code <0.01 See_Comment [Auto mated = 9583099405) message] The s ystem which generated this result transmitted reference range : 10*3/?L. The reference range was not used to interpret this result as normal/abnormal . GRAN MAT (NEUT) % 52.5 % (test code = 770-8) IMM GRAN % (test code 0.30 % = 7767482863) LYMPH % (test code = 31.1 % 736-9) MONO % (test code = 11.7 % 5905-5) EOS % (test code = 3.9 % 713-8) BASO % (test code = 0.5 % 706-2) GRAN MAT x10^3(ANC) 2.03 10*3/uL 1.99-6.95 (test code = 5636002005) IMM GRAN x10^3 (test <0.03 0.00-0.06 code = 0063061273) LYMPH x10^3 (test code 1.20 10*3/uL 1.09-3.23 = 731-0) MONO x10^3 (test code 0.45 10*3/uL 0.36-1.02 = 742-7) EOS x10^3 (test code = 0.15 10*3/uL 0.06-0.53 711-2) BASO x10^3 (test code <0.03 0.01-0.09 = 704-7) Lab Interpretation Abnormal (test code = 48780-4) [facility] WITH [id number] 12:30:17 Test Item Value Reference Range Interpretation [...] RDW-SD (test code = 49.2 fL 38.5-51.6 01194-4) RDW-CV (test code = 14.3 % 12.1-15.4 788-0) PLT (test code = See_Comment [Automated 777-3) message] The sy stem which generated this result transmitted reference range : 150 - 328 10*3/ ?L. The reference r meredith was not used to interpret this result as normal/abnormal . MPV (test code = 9.2 fL 9.8-13.0 L 67424-0) NRBC/100 WBC (test See_Comment [Automat ed code = 5078605190) message] The system which generated this result transmitted reference range : 0.0 - 10.0 /100 WBCs. The refer ence range was not u sed to interpret th is result as normal/abnormal . NRBC x10^3 (test code <0.01 See_Comment [Auto mated = 9480338355) message] The s ystem which generated this result transmitted reference range : 10*3/?L. The reference range was not used to interpret this result as normal/abnormal . GRAN MAT (NEUT) % 47.2 % (test code = 770-8) IMM GRAN % (test code 0.30 % = 8332115994) LYMPH % (test code = 36.0 % 736-9) MONO % (test code = 12.6 % 5905-5) EOS % (test code = 3.4 % 713-8) BASO % (test code = 0.5 % 706-2) GRAN MAT x10^3(ANC) 1.80 10*3/uL 1.99-6.95 L (test code = 8945278150) IMM GRAN x10^3 (test <0.03 0.00-0.06 code = 8911977397) LYMPH x10^3 (test code 1.37 10*3/uL 1.09-3.23 = 731-0) MONO x10^3 (test code 0.48 10*3/uL 0.36-1.02 = 742-7) EOS x10^3 (test code = 0.13 10*3/uL 0.06-0.53 711-2) BASO x10^3 (test code <0.03 0.01-0.09 = 704-7) Lab Interpretation Abnormal (test code = 53249-2) [facility] METABOLIC PANEL (NA, K, CL, CO2, GLUCOSE, BUN, CREATININE, CA)2021-08-04 12:17:48 Test Item Value Reference Range Interpretation Comments NA (test code = 139 mmol/L 135-145 7294086014) K (test code = 4.3 mmol/L 3.5-5.0 2455858906) CL (test code = 110 mmol/L 98-108 H 9509876019) CO2 TOTAL (test code = 26 mmol/L 23-31 6154993432) AGAP (test code = 2-16 1066328501) BUN (test code = 8 mg/dL 7-23 0020931819) GLUCOSE (test code = 87 mg/dL 70-110 8750957724) CREATININE (test code = 1.50 mg/dL 0.60-1.25 H 7655261425) CALCIUM (test code = 8.4 mg/dL 8.6-10.6 L 9882924937) eGFR (test code = mL/min/1.73m2 5375484248) GILBERTO (test code = GILBERTO) Association of [...] tests). Lab Interpretation Abnormal (test code = 44806-8) [facility] 12:17:48 Test Item Value Reference Range Interpretation Comments MAGNESIUM (test code = 8610144300) 1.9 mg/dL 1.7-2.4 Lab Interpretation (test code = Normal 44167-4) [facility] 12:17:48 Test Item Value Reference Range Interpretation Comments PHOSPHORUS (test code = 0840683452) 4.6 mg/dL 2.5-5.0 Lab Interpretation (test code = Normal 99075-9) [facility] [id number] 11:23:38 Test Item Value Reference Range Interpretation [...] RDW-SD (test code = 47.8 fL 38.5-51.6 63408-6) RDW-CV (test code = 14.1 % 12.1-15.4 788-0) PLT (test code = See_Comment [Automated 777-3) message] The sy stem which generated this result transmitted reference range : 150 - 328 10*3/ ?L. The reference r meredith was not used to interpret this result as normal/abnormal . MPV (test code = 9.3 fL 9.8-13.0 L 69043-4) NRBC/100 WBC (test See_Comment [Automat ed code = 5176331463) message] The system which generated this result transmitted reference range : 0.0 - 10.0 /100 WBCs. The refer ence range was not u sed to interpret th is result as normal/abnormal . NRBC x10^3 (test code <0.01 See_Comment [Auto mated = 1089239206) message] The s ystem which generated this result transmitted reference range : 10*3/?L. The reference range was not used to interpret this result as normal/abnormal . GRAN MAT (NEUT) % 49.3 % (test code = 770-8) IMM GRAN % (test code 0.30 % = 5064333043) LYMPH % (test code = 34.6 % 736-9) MONO % (test code = 12.0 % 5905-5) EOS % (test code = 3.3 % 713-8) BASO % (test code = 0.5 % 706-2) GRAN MAT x10^3(ANC) 1.97 10*3/uL 1.99-6.95 L (test code = 9358424178) IMM GRAN x10^3 (test <0.03 0.00-0.06 code = 7772389904) LYMPH x10^3 (test code 1.38 10*3/uL 1.09-3.23 = 731-0) MONO x10^3 (test code 0.48 10*3/uL 0.36-1.02 = 742-7) EOS x10^3 (test code = 0.13 10*3/uL 0.06-0.53 711-2) BASO x10^3 (test code <0.03 0.01-0.09 = 704-7) Lab Interpretation Abnormal (test code = 51611-1) [facility] METABOLIC PANEL (NA, K, CL, CO2, GLUCOSE, BUN, CREATININE, CA)2021-08-03 11:18:55 Test Item Value Reference Range Interpretation Comments NA (test code = 139 mmol/L 135-145 1583770048) K (test code = 4.1 mmol/L 3.5-5.0 2477545964) CL (test code = 110 mmol/L 98-108 H 7991568571) CO2 TOTAL (test code = 27 mmol/L 23-31 5127406176) AGAP (test code = 2-16 3749919423) BUN (test code = 8 mg/dL 7-23 6022699663) GLUCOSE (test code = 93 mg/dL 70-110 6796904448) CREATININE (test code = 1.39 mg/dL 0.60-1.25 H 7248492364) CALCIUM (test code = 8.1 mg/dL 8.6-10.6 L 6557503621) eGFR (test code = mL/min/1.73m2 1995404536) GILBERTO (test code = GILBERTO) Association of [...] tests). Lab Interpretation Abnormal (test code = 88029-0) [facility] 11:18:55 Test Item Value Reference Range Interpretation Comments MAGNESIUM (test code = 6759915720) 2.0 mg/dL 1.7-2.4 Lab Interpretation (test code = Normal 44742-4) [facility] 11:18:55 Test Item Value Reference Range Interpretation Comments PHOSPHORUS (test code = 8000633234) 3.8 mg/dL 2.5-5.0 Lab Interpretation (test code = Normal 65696-6) [facility] (NA, K, CL, CO2, GLUCOSE, BUN, CREATININE, CA)2021-08-02 14:06:51 Test Item Value Reference Range Interpretation Comments NA (test code = 137 mmol/L 135-145 6123464502) K (test code = 4.4 mmol/L 3.5-5.0 5852453084) CL (test code = 108 mmol/L 98-108 9215722627) CO2 TOTAL (test code = 24 mmol/L 23-31 6807172645) AGAP (test code = 2-16 1324655781) BUN (test code = 10 mg/dL 7-23 7997824281) GLUCOSE (test code = 83 mg/dL 70-110 6281488814) CREATININE (test code = 1.48 mg/dL 0.60-1.25 H 2317211078) CALCIUM (test code = 8.4 mg/dL 8.6-10.6 L 2407005686) eGFR (test code = mL/min/1.73m2 9808607635) GILBERTO (test code = GILBERTO) Association of [...] tests). Lab Interpretation Abnormal (test code = 48222-8) [facility] Test Item Value Reference Range Interpretation Comments MAGNESIUM (test code = 8283762126) 2.1 mg/dL 1.7-2.4 Lab Interpretation (test code = Normal 32762-8) [facility] Test Item Value Reference Range Interpretation Comments PHOSPHORUS (test code = 5106761281) 4.6 mg/dL 2.5-5.0 Lab Interpretation (test code = Normal 16013-4) [id number] 12:30:05 Test Item Value Reference Range Interpretation [...] RDW-SD (test code = 48.6 fL 38.5-51.6 22606-0) RDW-CV (test code = 14.3 % 12.1-15.4 788-0) PLT (test code = See_Comment [Automated 777-3) message] The sy stem which generated this result transmitted reference range : 150 - 328 10*3/ ?L. The reference r meredith was not used to interpret this result as normal/abnormal . MPV (test code = 10.0 fL 9.8-13.0 14349-1) NRBC/100 WBC (test See_Comment [Automat ed code = [id number]) message] The system which generated this result transmitted reference range : 0.0 - 10.0 /100 WBCs. The refer ence range was not u sed to interpret th is result as normal/abnormal . NRBC x10^3 (test code <0.01 See_Comment [Auto mated = [id number]) message] The s ystem which generated this result transmitted reference range : 10*3/?L. The reference range was not used to interpret this result as normal/abnormal . GRAN MAT (NEUT) % 51.9 % (test code = 770-8) IMM GRAN % (test code 0.60 % = 5957637217) LYMPH % (test code = 32.7 % 736-9) MONO % (test code = 11.3 % 5905-5) EOS % (test code = 3.2 % 713-8) BASO % (test code = 0.3 % 706-2) GRAN MAT x10^3(ANC) 1.80 10*3/uL 1.99-6.95 L (test code = 3598458543) IMM GRAN x10^3 (test <0.03 0.00-0.06 code = 0988633133) LYMPH x10^3 (test code 1.13 10*3/uL 1.09-3.23 = 731-0) MONO x10^3 (test code 0.39 10*3/uL 0.36-1.02 = 742-7) EOS x10^3 (test code = 0.11 10*3/uL 0.06-0.53 711-2) BASO x10^3 (test code <0.03 0.01-0.09 = 704-7) Lab Interpretation Abnormal (test code = 79925-3) [facility] WITH [id number] 10:44:18 Test Item Value Reference Range Interpretation Comments WBC (test code = See_Comment L [Automated 7090-2) message] The sy stem which [...] RDW-SD (test code = 48.0 fL 38.5-51.6 78988-2) RDW-CV (test code = 14.1 % 12.1-15.4 788-0) PLT (test code = See_Comment [Automated 777-3) message] The sy stem which generated this result transmitted reference range : 150 - 328 10*3/ ?L. The reference r meredith was not used to interpret this result as normal/abnormal . MPV (test code = 9.5 fL 9.8-13.0 L 71662-0) NRBC/100 WBC (test See_Comment [Automat ed code = 5105084030) message] The system which generated this result transmitted reference range : 0.0 - 10.0 /100 WBCs. The refer ence range was not u sed to interpret th is result as normal/abnormal . NRBC x10^3 (test code <0.01 See_Comment [Auto mated = 6678028438) message] The s ystem which generated this result transmitted reference range : 10*3/?L. The reference range was not used to interpret this result as normal/abnormal . GRAN MAT (NEUT) % 50.8 % (test code = 770-8) IMM GRAN % (test code 0.30 % = 9011801739) LYMPH % (test code = 34.6 % 736-9) MONO % (test code = 10.3 % 5905-5) EOS % (test code = 3.7 % 713-8) BASO % (test code = 0.3 % 706-2) GRAN MAT x10^3(ANC) 1.78 10*3/uL 1.99-6.95 L (test code = 8094388285) IMM GRAN x10^3 (test <0.03 0.00-0.06 code = 2976806342) LYMPH x10^3 (test code 1.21 10*3/uL 1.09-3.23 = 731-0) MONO x10^3 (test code 0.36 10*3/uL 0.36-1.02 = 742-7) EOS x10^3 (test code = 0.13 10*3/uL 0.06-0.53 711-2) BASO x10^3 (test code <0.03 0.01-0.09 = 704-7) Lab Interpretation Abnormal (test code = 64363-0) [facility] METABOLIC PANEL (NA, K, CL, CO2, GLUCOSE, BUN, CREATININE, CA)2021-08-01 10:25:17 Test Item Value Reference Range Interpretation Comments NA (test code = 138 mmol/L 135-145 2887379813) K (test code = 4.1 mmol/L 3.5-5.0 4120115763) CL (test code = 105 mmol/L 98-108 3444744459) CO2 TOTAL (test code = 28 mmol/L 23-31 6910060265) AGAP (test code = 2-16 4388689835) BUN (test code = 13 mg/dL 7-23 3858137555) GLUCOSE (test code = 86 mg/dL 70-110 3373302626) CREATININE (test code = 1.46 mg/dL 0.60-1.25 H 6721235050) CALCIUM (test code = 8.7 mg/dL 8.6-10.6 1172830827) eGFR (test code = mL/min/1.73m2 6803148633) GILBERTO (test code = GILBERTO) Association of [...] tests). Lab Interpretation Abnormal (test code = 06176-4) [facility]17 Test Item Value Reference Range Interpretation Comments MAGNESIUM (test code = 7030459157) 1.6 mg/dL 1.7-2.4 L Lab Interpretation (test code = Abnormal 93129-6) [facility] 10:25:17 Test Item Value Reference Range Interpretation Comments PHOSPHORUS (test code = 7878904269) 4.1 mg/dL 2.5-5.0 Lab Interpretation (test code = Normal 65011-1) [facility] 16:18:34 Test Item Value Reference Range Interpretation Comments PALB (test code = 28621-1) 24.3 mg/dL 18.0-45.0 Lab Interpretation (test code = Normal 80071-8) [facility] [id number] 11:20:19 Test Item Value Reference Range Interpretation [...] RDW-SD (test code = 49.6 fL 38.5-51.6 38214-7) RDW-CV (test code = 14.6 % 12.1-15.4 788-0) PLT (test code = See_Comment [Automated 777-3) message] The sy stem which generated this result transmitted reference range : 150 - 328 10*3/ ?L. The reference r meredith was not used to interpret this result as normal/abnormal . MPV (test code = 9.6 fL 9.8-13.0 L 96582-0) NRBC/100 WBC (test See_Comment [Automat ed code = 1518175236) message] The system which generated this result transmitted reference range : 0.0 - 10.0 /100 WBCs. The refer ence range was not u sed to interpret th is result as normal/abnormal . NRBC x10^3 (test code <0.01 See_Comment [Auto mated = 5859228433) message] The s ystem which generated this result transmitted reference range : 10*3/?L. The reference range was not used to interpret this result as normal/abnormal . GRAN MAT (NEUT) % 49.1 % (test code = 770-8) IMM GRAN % (test code 0.30 % = 9996154171) LYMPH % (test code = 36.0 % 736-9) MONO % (test code = 10.6 % 5905-5) EOS % (test code = 3.4 % 713-8) BASO % (test code = 0.6 % 706-2) GRAN MAT x10^3(ANC) 1.76 10*3/uL 1.99-6.95 L (test code = 5159260621) IMM GRAN x10^3 (test <0.03 0.00-0.06 code = 8508882347) LYMPH x10^3 (test code 1.29 10*3/uL 1.09-3.23 = 731-0) MONO x10^3 (test code 0.38 10*3/uL 0.36-1.02 = 742-7) EOS x10^3 (test code = 0.12 10*3/uL 0.06-0.53 711-2) BASO x10^3 (test code <0.03 0.01-0.09 = 704-7) Lab Interpretation Abnormal (test code = 74838-1) [facility] METABOLIC PANEL (NA, K, CL, CO2, GLUCOSE, BUN, CREATININE, CA)2021-07-31 11:11:17 Test Item Value Reference Range Interpretation Comments NA (test code = 135 mmol/L 135-145 6469472883) K (test code = 3.8 mmol/L 3.5-5.0 9217521622) CL (test code = 108 mmol/L 98-108 1550466442) CO2 TOTAL (test code = 24 mmol/L 23-31 2672559038) AGAP (test code = 2-16 2394990586) BUN (test code = 13 mg/dL 7-23 9329274100) GLUCOSE (test code = 88 mg/dL 70-110 3223563279) CREATININE (test code = 1.32 mg/dL 0.60-1.25 H 1938930000) CALCIUM (test code = 8.4 mg/dL 8.6-10.6 L 4591944899) eGFR (test code = mL/min/1.73m2 5450802219) GILBERTO (test code = GILBERTO) Association of [...] tests). Lab Interpretation Abnormal (test code = 81927-6) [facility] 11:11:17 Test Item Value Reference Range Interpretation Comments MAGNESIUM (test code = 8696886981) 1.8 mg/dL 1.7-2.4 Lab Interpretation (test code = Normal 45088-2) [facility] 11:11:17 Test Item Value Reference Range Interpretation Comments PHOSPHORUS (test code = 1234143081) 4.0 mg/dL 2.5-5.0 Lab Interpretation (test code = Normal 69140-3) [facility] (99869)2021-07-30 03:46:32 Test Item Value Reference Range Interpretation Comments NA (test code = 132 mmol/L 135-145 L 7708181820) K (test code = 4.4 mmol/L 3.5-5.0 4261122141) CL (test code = 102 mmol/L 98-108 4306004556) CO2 TOTAL (test code = 24 mmol/L 23-31 5737843235) AGAP (test code = 2-16 3273204003) BUN (test code = 21 mg/dL 7-23 9082684069) GLUCOSE (test code = 95 mg/dL 70-110 1045904054) CREATININE (test code = 1.76 mg/dL 0.60-1.25 H 0657608643) TOTAL BILI (test code = 0.7 mg/dL 0.1-1.2 5294417374) CALCIUM (test code = 8.8 mg/dL 8.6-10.6 8007253521) T PROTEIN (test code = 6.0 g/dL 6.3-8.2 L 9083213930) ALBUMIN (test code = 3.8 g/dL 3.5-5.0 8407612047) ALK PHOS (test code = 67 U/L 34-122 3315714345) ALTv (test code = 47 U/L 5-50 2-6) AST(SGOT) (test code = 39 U/L 13-40 7534669954) eGFR (test code = mL/min/1.73m2 6664729513) GILBERTO (test code = GILBERTO) Association of [...] tests). Lab Interpretation Abnormal (test code = 91787-4) [facility] 03:19:26 Test Item Value Reference Range Interpretation Comments LIPASE (test code = 1580629376) 58 U/L 0-220 Lab Interpretation (test code = Normal 27001-8) [facility] [id number] 03:07:20 Test Item Value Reference Range Interpretation [...] RDW-SD (test code = 47.4 fL 38.5-51.6 61952-2) RDW-CV (test code = 14.2 % 12.1-15.4 788-0) PLT (test code = See_Comment [Automated 777-3) message] The sy stem which generated this result transmitted reference range : 150 - 328 10*3/ ?L. The reference r meredith was not used to interpret this result as normal/abnormal . MPV (test code = 9.9 fL 9.8-13.0 97471-4) NRBC/100 WBC (test See_Comment [Automat ed code = 6828721995) message] The system which generated this result transmitted reference range : 0.0 - 10.0 /100 WBCs. The refer ence range was not u sed to interpret th is result as normal/abnormal . NRBC x10^3 (test code <0.01 See_Comment [Auto mated = 3762714640) message] The s ystem which generated this result transmitted reference range : 10*3/?L. The reference range was not used to interpret this result as normal/abnormal . GRAN MAT (NEUT) % 61.1 % (test code = 770-8) IMM GRAN % (test code 0.20 % = 3030892422) LYMPH % (test code = 24.4 % 736-9) MONO % (test code = 11.8 % 5905-5) EOS % (test code = 2.2 % 713-8) BASO % (test code = 0.3 % 706-2) GRAN MAT x10^3(ANC) 3.98 10*3/uL 1.99-6.95 (test code = 5299636272) IMM GRAN x10^3 (test <0.03 0.00-0.06 code = 2215107195) LYMPH x10^3 (test code 1.59 10*3/uL 1.09-3.23 = 731-0) MONO x10^3 (test code 0.77 10*3/uL 0.36-1.02 = 742-7) EOS x10^3 (test code = 0.14 10*3/uL 0.06-0.53 711-2) BASO x10^3 (test code <0.03 0.01-0.09 = 704-7) Lab Interpretation Abnormal (test code = 36761-9) [facility] Whole [id number] 03:00:47 Test Item Value Reference Range Interpretation Comments LACTIC ACID (test code = 1.45 mmol/L 0.50-2.20 QUE S 6410213481) Lab Interpretation (test code = Normal 18455-3) [facility] MET[facility]OLIC [id number] 11:51:00 Test Item Value Reference Range Interpretation [...] Units/L 50.0-136.0 N code = ALKP) PROTHROMBIN [id number] 11:41:00 Test Item Value Reference Range Interpretation Comments PROTHROMBIN TIME 10.9 SECONDS 9.9-12.8 N PATIENT (test code = PTP) INTERNATIONAL NORMAL 0.9 0.89-1.14 N THE INR IS TO BE USED RATIO (test code = ONLY FOR MONITORING INR) ORAL ANTICOAGULANTTH ERAPY. THE FOLLOWING A RE SU[facility]ED [facility] LE[facility] OF CHEST PHYSICIANS:ROOPA CATION INR VALUEPROPHY [...] - 3.0 VALVULAR HEART DISEASE 2.0 - 3.0 ATRIAL FIBRILAT ION 2.0 - 3.0BILEAFLET MECHANICAL VALV E IN AORTIC POSITION 2.0 - 3.0MECHANICAL PROSTHETIC VALV ES (HIGH RISK) 2.5 - 3.5PRESENCE OF LUPUS ANTICOAGULANT O R ANTIPHOSPHOLIPI D ANTIBODIES 2.5 - 3.5 CBC W/AUTO [id number] 11:36:00 Test Item Value Reference Range Interpretation [...] NA (test code = 137 mmol/L 135-145 8209261682) K (test code = 4.2 mmol/L 3.5-5.0 4838407940) CL (test code = 109 mmol/L 98-108 H 4324976605) CO2 TOTAL (test code = 25 mmol/L 23-31 4557643728) AGAP (test code = 2-16 8083280858) BUN (test code = 11 mg/dL 7-23 6422572804) GLUCOSE (test code = 83 mg/dL 70-110 1936773339) CREATININE (test code = 1.40 mg/dL 0.60-1.25 H 6357362553) CALCIUM (test code = 8.6 mg/dL 8.6-10.6 1258640158) eGFR (test code = mL/min/1.73m2 8696796488) GILBERTO (test code = GILBERTO) Association of [...] tests). Lab Interpretation Abnormal (test code = 13237-5) [facility] 13:15:26 Test Item Value Reference Range Interpretation Comments MAGNESIUM (test code = 4531692080) 1.6 mg/dL 1.7-2.4 L Lab Interpretation (test code = Abnormal 55297-3) [facility] 13:15:26 Test Item Value Reference Range Interpretation Comments PHOSPHORUS (test code = 6307226354) 3.5 mg/dL 2.5-5.0 Lab Interpretation (test code = Normal 62458-3) [facility] [id number] 12:50:41 Test Item Value Reference Range Interpretation Comments WBC (test code = See_Comment [Automated 7338-2) message] The sy stem which generated this [...] RDW-SD (test code = 46.7 fL 38.5-51.6 91763-2) RDW-CV (test code = 14.3 % 12.1-15.4 788-0) PLT (test code = See_Comment [Automated 777-3) message] The sy stem which generated this result transmitted reference range : 150 - 328 10*3/ ?L. The reference r meredith was not used to interpret this result as normal/abnormal . MPV (test code = 9.6 fL 9.8-13.0 L 40352-7) NRBC/100 WBC (test See_Comment [Automat ed code = 5340634508) message] The system which generated this result transmitted reference range : 0.0 - 10.0 /100 WBCs. The refer ence range was not u sed to interpret th is result as normal/abnormal . NRBC x10^3 (test code <0.01 See_Comment [Auto mated = 2988140463) message] The s ystem which generated this result transmitted reference range : 10*3/?L. The reference range was not used to interpret this result as normal/abnormal . GRAN MAT (NEUT) % 52.7 % (test code = 770-8) IMM GRAN % (test code 0.40 % = 9742343416) LYMPH % (test code = 33.7 % 736-9) MONO % (test code = 10.4 % 5905-5) EOS % (test code = 2.4 % 713-8) BASO % (test code = 0.4 % 706-2) GRAN MAT x10^3(ANC) 2.65 10*3/uL 1.99-6.95 (test code = 7598758238) IMM GRAN x10^3 (test <0.03 0.00-0.06 code = 4629868955) LYMPH x10^3 (test code 1.69 10*3/uL 1.09-3.23 = 731-0) MONO x10^3 (test code 0.52 10*3/uL 0.36-1.02 = 742-7) EOS x10^3 (test code = 0.12 10*3/uL 0.06-0.53 711-2) BASO x10^3 (test code <0.03 0.01-0.09 = 704-7) Lab Interpretation Abnormal (test code = 29307-0) [facility] 12:35:59 Test Item Value Reference Range Interpretation Comments MAGNESIUM (test code = 8752168024) 1.6 mg/dL 1.7-2.4 L Lab Interpretation (test code = Abnormal 53866-8) [facility] 12:35:59 Test Item Value Reference Range Interpretation Comments PHOSPHORUS (test code = 2959157322) 4.0 mg/dL 2.5-5.0 Lab Interpretation (test code = Normal 43749-5) [facility] (NA, K, CL, CO2, GLUCOSE, BUN, CREATININE, CA)2021-07-25 12:09:12 Test Item Value Reference Range Interpretation Comments NA (test code = 139 mmol/L 135-145 3395472090) K (test code = 4.1 mmol/L 3.5-5.0 4285277500) CL (test code = 111 mmol/L 98-108 H 6162883651) CO2 TOTAL (test code = 25 mmol/L 23-31 2052295051) AGAP (test code = 2-16 5582899356) BUN (test code = 13 mg/dL 7-23 5166345558) GLUCOSE (test code = 86 mg/dL 70-110 7693662575) CREATININE (test code = 1.43 mg/dL 0.60-1.25 H 8526670372) CALCIUM (test code = 8.4 mg/dL 8.6-10.6 L 9347324493) eGFR (test code = mL/min/1.73m2 0613757458) GILBERTO (test code = GILBERTO) Association of [...] tests). Lab Interpretation Abnormal (test code = 72117-6) [facility] WITH [id number] 11:44:33 Test Item Value Reference Range Interpretation Comments WBC (test code = See_Comment [Automated 7590-2) message] The sy stem which generated this result transmitted reference range : 4.20 - 10.70 10*3/?L. The reference range was not used to interpret this result as normal/abnormal . RBC (test code = See_Comment L [Automated 759-8) message] The sy stem which generated this [...] RDW-SD (test code = 48.9 fL 38.5-51.6 44946-2) RDW-CV (test code = 14.3 % 12.1-15.4 788-0) PLT (test code = See_Comment [Automated 777-3) message] The sy stem which generated this result transmitted reference range : 150 - 328 10*3/ ?L. The reference r meredith was not used to interpret this result as normal/abnormal . MPV (test code = 9.6 fL 9.8-13.0 L 14581-5) NRBC/100 WBC (test See_Comment [Automat ed code = 4917700984) message] The system which generated this result transmitted reference range : 0.0 - 10.0 /100 WBCs. The refer ence range was not u sed to interpret th is result as normal/abnormal . NRBC x10^3 (test code <0.01 See_Comment [Auto mated = 2055817521) message] The s ystem which generated this result transmitted reference range : 10*3/?L. The reference range was not used to interpret this result as normal/abnormal . GRAN MAT (NEUT) % 50.0 % (test code = 770-8) IMM GRAN % (test code 0.20 % = 5051638724) LYMPH % (test code = 36.7 % 736-9) MONO % (test code = 10.0 % 5905-5) EOS % (test code = 2.6 % 713-8) BASO % (test code = 0.5 % 706-2) GRAN MAT x10^3(ANC) 2.11 10*3/uL 1.99-6.95 (test code = 6410539902) IMM GRAN x10^3 (test <0.03 0.00-0.06 code = 4909629057) LYMPH x10^3 (test code 1.55 10*3/uL 1.09-3.23 = 731-0) MONO x10^3 (test code 0.42 10*3/uL 0.36-1.02 = 742-7) EOS x10^3 (test code = 0.11 10*3/uL 0.06-0.53 711-2) BASO x10^3 (test code <0.03 0.01-0.09 = 704-7) Lab Interpretation Abnormal (test code = 34631-4) [facility] WITH [id number] 04:23:56 Test Item Value Reference Range Interpretation Comments WBC (test code = See_Comment [Automated 5090-2) message] The sy stem which generated this result transmitted reference range : 4.20 - 10.70 10*3/?L. The reference range was not used to interpret this result as normal/abnormal . RBC (test code = See_Comment L [Automated 949-8) message] The sy stem which [...] RDW-SD (test code = 49.0 fL 38.5-51.6 32680-2) RDW-CV (test code = 14.4 % 12.1-15.4 788-0) PLT (test code = See_Comment [Automated 777-3) message] The sy stem which generated this result transmitted reference range : 150 - 328 10*3/ ?L. The reference r meredith was not used to interpret this result as normal/abnormal . MPV (test code = 9.5 fL 9.8-13.0 L 00565-5) NRBC/100 WBC (test See_Comment [Automat ed code = 2829301255) message] The system which generated this result transmitted reference range : 0.0 - 10.0 /100 WBCs. The refer ence range was not u sed to interpret th is result as normal/abnormal . NRBC x10^3 (test code <0.01 See_Comment [Auto mated = 8637130844) message] The s ystem which generated this result transmitted reference range : 10*3/?L. The reference range was not used to interpret this result as normal/abnormal . GRAN MAT (NEUT) % 49.9 % (test code = 770-8) IMM GRAN % (test code 0.20 % = 3043956427) LYMPH % (test code = 35.2 % 736-9) MONO % (test code = 11.7 % 5905-5) EOS % (test code = 2.4 % 713-8) BASO % (test code = 0.6 % 706-2) GRAN MAT x10^3(ANC) 2.31 10*3/uL 1.99-6.95 (test code = 2350627760) IMM GRAN x10^3 (test <0.03 0.00-0.06 code = 0988980662) LYMPH x10^3 (test code 1.63 10*3/uL 1.09-3.23 = 731-0) MONO x10^3 (test code 0.54 10*3/uL 0.36-1.02 = 742-7) EOS x10^3 (test code = 0.11 10*3/uL 0.06-0.53 711-2) BASO x10^3 (test code 0.03 10*3/uL 0.01-0.09 = 704-7) Lab Interpretation Abnormal (test code = 99332-3) [facility] METABOLIC PANEL (NA, K, CL, CO2, GLUCOSE, BUN, CREATININE, CA)2021-07-24 12:55:24 Test Item Value Reference Range Interpretation Comments NA (test code = 135 mmol/L 135-145 5153264876) K (test code = 4.0 mmol/L 3.5-5.0 0255318423) CL (test code = 109 mmol/L 98-108 H 8622788271) CO2 TOTAL (test code = 22 mmol/L 23-31 L 0987457287) AGAP (test code = 2-16 4247526875) BUN (test code = 12 mg/dL 7-23 5806893169) GLUCOSE (test code = 102 mg/dL 70-110 8100386775) CREATININE (test code = 1.27 mg/dL 0.60-1.25 H 2788262816) CALCIUM (test code = 8.6 mg/dL 8.6-10.6 4545444318) eGFR (test code = mL/min/1.73m2 5261581552) GILBERTO (test code = GILBERTO) Association of [...] tests). Lab Interpretation Abnormal (test code = 70640-6) [facility] Test Item Value Reference Range Interpretation Comments MAGNESIUM (test code = 6865248550) 1.7 mg/dL 1.7-2.4 Lab Interpretation (test code = Normal 52546-1) [facility] 12:55:24 Test Item Value Reference Range Interpretation Comments PHOSPHORUS (test code = 1531617620) 3.1 mg/dL 2.5-5.0 Lab Interpretation (test code = Normal 18245-4) [facility] (NA, K, CL, CO2, Glucose, BUN, Creatinine, CA)2021-07-23 13:27:55 Test Item Value Reference Range Interpretation Comments NA (test code = 134 mmol/L 135-145 L 4658788189) K (test code = 3.8 mmol/L 3.5-5.0 4189061449) CL (test code = 107 mmol/L 98-108 6293129383) CO2 TOTAL (test code = 21 mmol/L 23-31 L 5460722456) AGAP (test code = 2-16 7047156832) BUN (test code = 18 mg/dL 7-23 2487733231) GLUCOSE (test code = 120 mg/dL 70-110 H 3587926727) CREATININE (test code = 1.46 mg/dL 0.60-1.25 H 4231232860) CALCIUM (test code = 8.7 mg/dL 8.6-10.6 1598166301) eGFR (test code = mL/min/1.73m2 8751044106) GILBERTO (test code = GILBERTO) Association of [...] tests). Lab Interpretation Abnormal (test code = 91116-6) [facility] 13:27:55 Test Item Value Reference Range Interpretation Comments MAGNESIUM (test code = 1848818293) 1.9 mg/dL 1.7-2.4 Lab Interpretation (test code = Normal 99785-8) [facility] 13:27:55 Test Item Value Reference Range Interpretation Comments PHOSPHORUS (test code = 8447939287) 3.5 mg/dL 2.5-5.0 Lab Interpretation (test code = Normal 37393-7) [facility] [id number] 13:06:55 Test Item Value Reference Range Interpretation Comments WBC (test code = See_Comment [Automated 3990-2) message] The sy stem which generated this result transmitted reference range : 4.20 - 10.70 10*3/?L. The reference range was not used to interpret this result as normal/abnormal . RBC (test code = See_Comment L [Automated 519-8) message] The sy stem which generated this [...] RDW-SD (test code = 47.8 fL 38.5-51.6 62720-5) RDW-CV (test code = 14.4 % 12.1-15.4 788-0) PLT (test code = See_Comment [Automated 777-3) message] The sy stem which generated this result transmitted reference range : 150 - 328 10*3/ ?L. The reference r meredith was not used to interpret this result as normal/abnormal . MPV (test code = 9.4 fL 9.8-13.0 L 49737-1) NRBC/100 WBC (test See_Comment [Automat ed code = 5558547905) message] The system which generated this result transmitted reference range : 0.0 - 10.0 /100 WBCs. The refer ence range was not u sed to interpret th is result as normal/abnormal . NRBC x10^3 (test code <0.01 See_Comment [Auto mated = 3947229289) message] The s ystem which generated this result transmitted reference range : 10*3/?L. The reference range was not used to interpret this result as normal/abnormal . GRAN MAT (NEUT) % 54.7 % (test code = 770-8) IMM GRAN % (test code 0.40 % = 0831247634) LYMPH % (test code = 33.3 % 736-9) MONO % (test code = 9.4 % 5905-5) EOS % (test code = 1.8 % 713-8) BASO % (test code = 0.4 % 706-2) GRAN MAT x10^3(ANC) 2.78 10*3/uL 1.99-6.95 (test code = [id number]) IMM GRAN x10^3 (test <0.03 0.00-0.06 code = [id number]) LYMPH x10^3 (test code 1.69 10*3/uL 1.09-3.23 = 731-0) MONO x10^3 (test code 0.48 10*3/uL 0.36-1.02 = 742-7) EOS x10^3 (test code = 0.09 10*3/uL 0.06-0.53 711-2) BASO x10^3 (test code <0.03 0.01-0.09 = 704-7) Lab Interpretation Abnormal (test code = 38486-4) 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 operator at [facility] BASIC METABOLIC [id number] 05:21:00 Test Item Value Reference Range Interpretation [...] (test code = POCGLU) 92 MG/DL GLUCOSE [id number] 05:19:00 Test Item Value Reference Range Interpretation Comments GLUCOSE BEDSIDE (test 51 MG/DL 70-110 L [facility] med by certified code = GLUBED) alum operator at [facility] CBC W/AUTO [id number] 14:00:00 Test Item Value Reference Range Interpretation [...] MX#) 0.2 k/mm3 0.1-0.8 N CBC W/AUTO [id number] 00:07:00 Test Item Value Reference Range Interpretation [...] = LY#) 2.4 K/uL 1.0-3.8 N LIVER [id number] 16:14:00 Test Item Value Reference Range Interpretation Comments TOTAL PROTEIN (test code 7.5 GM/DL 5.0-8.0 N Per formed by = PROT) 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 [facility] ALBUMIN (test code = [...] 65 UNITS/L 25-125 N TAWNY) BASIC METABOLIC [id number] 16:07:00 Test Item Value Reference Range Interpretation [...] POCGLU) 96 MG/DL - XR CHEST 1 [id number] 00:00:00 [facility] : 1970 Sex: MFAX: Sabi Urias MD [phone] [place]: [address]: PRE Name: DORA JOSEPH FSED : 1970 Age/S: 51/M [address] [facility] Unit #: [id number] Loc: [place] [address] Phys: Sabi Urias MD Acct: [id number] Dis Date: Status: PRE ER PHONE #: Exam Date: 06/27/2021 5963 FAX #: Reason: Abdominal PainEXAMS: CPT CODE: [id number] XR CHEST 1 V [address] PROCEDURE INFORMATION: Exam: XR Chest Exam date [...] diaphragm. No acute cardiopulmonary findings otherwise.. at 6238 Reported and signed by: Андрей Mar M.D. CC: Sabi Urias MD Technologist: RT Alanna(R)(CT) Trnscrd Date/Time/By: 06/27/2021 (1559) : By: [email or web address] Orig Print D/T: S: 06/27/2021 (2929) PAGE 1 Signed Report- CT ABD PELVIS W/[id number] 00:00:00 [facility] : 1970 Sex: MName: DORA JOSEPH FSED : 1970 Age/S: 51 / M [address] [facility] Unit #: [id number] Loc: [place] [address] Phys: Sabi Urias MD Acct: [id number] Dis Date: Status: REG ER PHONE #: Exam Date: 06/27/2021 1621 FAX #: Reason: pain in region of colostomy EXAMS: CPT CODE: [id number] CT ABD PELVIS W/CONT 06438 PROCEDURE INFORMATION: Exam: CT Abdomen And Pelvis [...] : 1970 Age/S: 51 / M [address] [facility] Unit #: [id number] Loc: [place] Eraz[place] [address] Phys: Sabi Urias MD Acct: [id number] Dis Date: Status: REG ER PHONE #: Exam Date: 06/27/2021 1625 FAX #: Reason: pain in region of colostomy EXAMS: CPT CODE: [id number] CT ABD PELVIS W/CONT 50552 <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 There is no evidence of associated intestinal obstruction. 2. No additional acute CT abnormalities of the abdomen or pelvis are identified. SL:131 at 1650 Reported and signed by: Marco Raman M.D. CC: Sabi Urias MD Technologist:RT Alanna(R)(CT) CTDI: DLP: Trnscb Date/Time: 06/27/2021 (165) [place] Orig Print D/T: S: 06/27/2021 (165) PAGE 2 Signed ReportBASIC METABOLIC PANEL (NA, K, CL, CO2, GLUCOSE, BUN, CREATININE, CA)2021-06-03 11:32:40 Test Item Value Reference Range Interpretation Comments NA (test code = 133 mmol/L 135-145 L 5682557842) K (test code = 3.7 mmol/L 3.5-5.0 2650934979) CL (test code = 108 mmol/L 98-108 4675414037) CO2 TOTAL (test code = 20 mmol/L 23-31 L 3540369671) AGAP (test code = 2-16 0366114926) BUN (test code = 11 mg/dL 7-23 1634329787) GLUCOSE (test code = 82 mg/dL 70-110 1236152812) CREATININE (test code = 0.96 mg/dL 0.60-1.25 1678573992) CALCIUM (test code = 8.6 mg/dL 8.6-10.6 5320635867) eGFR (test code = mL/min/1.73m2 1349343150) GILBERTO (test code = GILBERTO) Association of [...] tests). Lab Interpretation Abnormal (test code = 38401-1) [facility] METABOLIC PANEL (NA, K, CL, CO2, GLUCOSE, BUN, CREATININE, CA)2021-06-02 11:45:25 Test Item Value Reference Range Interpretation Comments NA (test code = 133 mmol/L 135-145 L 6389526253) K (test code = 3.7 mmol/L 3.5-5.0 5152079441) CL (test code = 111 mmol/L 98-108 H 8348020886) CO2 TOTAL (test code = 17 mmol/L 23-31 L 6724987329) AGAP (test code = 2-16 0255149421) BUN (test code = 15 mg/dL 7-23 3941368965) GLUCOSE (test code = 88 mg/dL 70-110 4219362321) CREATININE (test code = 0.96 mg/dL 0.60-1.25 4167817159) CALCIUM (test code = 8.1 mg/dL 8.6-10.6 L 6544286069) eGFR (test code = mL/min/1.73m2 7655784838) GILBERTO (test code = GILBERTO) Association of [...] tests). Lab Interpretation Abnormal (test code = 37636-3) [facility] METABOLIC PANEL (NA, K, CL, CO2, GLUCOSE, BUN, CREATININE, CA)2021-06-01 17:06:47 Test Item Value Reference Range Interpretation Comments NA (test code = 131 mmol/L 135-145 L 4109693490) K (test code = 3.9 mmol/L 3.5-5.0 Slight 1881757915) hemolysis CL (test code = 108 mmol/L 98-108 7147994301) CO2 TOTAL (test code 15 mmol/L 23-31 L = 0729643985) AGAP (test code = 2-16 8339213431) BUN (test code = 26 mg/dL 7-23 H Slight 4593849051) hemolysis GLUCOSE (test code = 85 mg/dL 70-110 0431850236) CREATININE (test code 1.26 mg/dL 0.60-1.25 H = 7348104375) CALCIUM (test code = 8.1 mg/dL 8.6-10.6 L 1273198282) eGFR (test code = mL/min/1.73m2 6788886593) GILBERTO (test code = GILBERTO) Association of [...] tests). Lab Interpretation Abnormal (test code = 67626-9) [facility] [id number] 05:45:35 Test Item Value Reference Range Interpretation Comments LACTIC ACID (test code = 0.67 mmol/L 0.50-2.20 1675559496) Lab Interpretation (test code = Normal 92770-4) [facility] [id number] 23:44:55 Test Item Value Reference Interpretation Comments Range TROPONIN I (test 0.004 ng/mL See_Comment [Automated code = 5757366993) message] The system which generated this result [...] biotin. Lab Interpretation Normal (test code = 47892-6) [facility] 23:33:28 Test Item Value Reference Range Interpretation Comments LIPASE (test code = 8623481752) 386 U/L 0-220 H Lab Interpretation (test code = Abnormal 75799-6) [facility]OL[facility] (05747)2021-05-31 23:33:28 Test Item Value Reference Range Interpretation Comments NA (test code = 128 mmol/L 135-145 L 4387075439) K (test code = 4.2 mmol/L 3.5-5.0 8118286373) CL (test code = 102 mmol/L 98-108 3308581129) CO2 TOTAL (test code = 13 mmol/L 23-31 L 0349862670) AGAP (test code = 2-16 4704280683) BUN (test code = 47 mg/dL 7-23 H 8944224848) GLUCOSE (test code = 106 mg/dL 70-110 8700653016) CREATININE (test code = 2.38 mg/dL 0.60-1.25 H 6056697572) TOTAL BILI (test code = 0.6 mg/dL 0.1-1.2 3091207843) CALCIUM (test code = 9.5 mg/dL 8.6-10.6 4938823016) T PROTEIN (test code = 7.3 g/dL 6.3-8.2 5645079586) ALBUMIN (test code = 4.6 g/dL 3.5-5.0 6148026810) ALK PHOS (test code = 110 U/L 34-122 2302579617) ALTv (test code = 29 U/L 5-50 2-6) AST(SGOT) (test code = 33 U/L 13-40 5419151845) eGFR (test code = mL/min/1.73m2 0458375966) GILBERTO (test code = GILBERTO) Association of [...] tests). Lab Interpretation Abnormal (test code = 33111-5) [facility] WITH [id number] 22:57:06 Test Item Value Reference Range Interpretation Comments WBC (test code = See_Comment [Automated 5090-2) message] The sy stem which generated this [...] RDW-SD (test code = 43.2 fL 38.5-51.6 81135-6) RDW-CV (test code = 13.7 % 12.1-15.4 788-0) PLT (test code = See_Comment [Automated 777-3) message] The sy stem which generated this result transmitted reference range : 150 - 328 10*3/ ?L. The reference r meredith was not used to interpret this result as normal/abnormal . MPV (test code = 10.1 fL 9.8-13.0 23414-4) NRBC/100 WBC (test See_Comment [Automat ed code = 8791800929) message] The system which generated this result transmitted reference range : 0.0 - 10.0 /100 WBCs. The refer ence range was not u sed to interpret th is result as normal/abnormal . NRBC x10^3 (test code <0.01 See_Comment [Auto mated = 4059797975) message] The s ystem which generated this result transmitted reference range : 10*3/?L. The reference range was not used to interpret this result as normal/abnormal . GRAN MAT (NEUT) % 68.1 % (test code = 770-8) IMM GRAN % (test code 0.40 % = 6759507947) LYMPH % (test code = 21.9 % 736-9) MONO % (test code = 8.9 % 5905-5) EOS % (test code = 0.3 % 713-8) BASO % (test code = 0.4 % 706-2) GRAN MAT x10^3(ANC) 5.38 10*3/uL 1.99-6.95 (test code = 7917961925) IMM GRAN x10^3 (test 0.03 10*3/uL 0.00-0.06 code = 6362509363) LYMPH x10^3 (test code 1.73 10*3/uL 1.09-3.23 = 731-0) MONO x10^3 (test code 0.70 10*3/uL 0.36-1.02 = 742-7) EOS x10^3 (test code = <0.03 0.06-0.53 L 711-2) BASO x10^3 (test code 0.03 10*3/uL 0.01-0.09 = 704-7) Lab Interpretation Abnormal (test code = 08663-5) [facility]2021-09-28 09:49:03 Test Item Value Reference Range Interpretation Comments MAGNESIUM (test code = 8837751365) 2.0 mg/dL 1.7-2.4 Lab Interpretation (test code = Normal 85455-4) [facility] CenterPHOSPHORUS2021-09-28 09:49:03 Test Item Value Reference Range Interpretation Comments PHOSPHORUS (test code = 2591452495) 4.0 mg/dL 2.5-5.0 Lab Interpretation (test code = Normal 32231-8) [facility] CenterB[facility] Met[facility] Panel (NA, K, CL, CO2, GLUCOSE, BUN, CREATININE, CA)2021-05-21 09:49:03 Test Item Value Reference Range Interpretation Comments NA (test code = 132 mmol/L 135-145 L 0209564331) K (test code = 4.3 mmol/L 3.5-5.0 4449423079) CL (test code = 105 mmol/L 98-108 0920942905) CO2 TOTAL (test code = 21 mmol/L 23-31 L 8763328597) AGAP (test code = 2-16 5958783863) BUN (test code = 25 mg/dL 7-23 H 3447170685) GLUCOSE (test code = 98 mg/dL 70-110 0604002959) CREATININE (test code = 1.20 mg/dL 0.60-1.25 0907397095) CALCIUM (test code = 8.4 mg/dL 8.6-10.6 L 1548967873) eGFR (test code = mL/min/1.73m2 9867453895) GILBERTO (test code = GILBERTO) Association of [...] tests). Lab Interpretation Abnormal (test code = 94211-0) [facility] with Btezcksdeyxn2582-33-93 09:22:22 Test Item Value Reference Range Interpretation [...] RDW-SD (test code = 45.6 fL 38.5-51.6 27186-3) RDW-CV (test code = 13.7 % 12.1-15.4 788-0) PLT (test code = See_Comment [Automated 777-3) message] The sy stem which generated this result transmitted reference range : 150 - 328 10*3/ ?L. The reference r meredith was not used to interpret this result as normal/abnormal . MPV (test code = 9.7 fL 9.8-13.0 L 94437-1) NRBC/100 WBC (test See_Comment [Automat ed code = 1044245325) message] The system which generated this result transmitted reference range : 0.0 - 10.0 /100 WBCs. The refer ence range was not u sed to interpret th is result as normal/abnormal . NRBC x10^3 (test code <0.01 See_Comment [Auto mated = 0946047856) message] The s ystem which generated this result transmitted reference range : 10*3/?L. The reference range was not used to interpret this result as normal/abnormal . GRAN MAT (NEUT) % 49.4 % (test code = 770-8) IMM GRAN % (test code 0.60 % = 7092679316) LYMPH % (test code = 35.2 % 736-9) MONO % (test code = 11.9 % 5905-5) EOS % (test code = 2.1 % 713-8) BASO % (test code = 0.8 % 706-2) GRAN MAT x10^3(ANC) 2.33 10*3/uL 1.99-6.95 (test code = 4526015441) IMM GRAN x10^3 (test 0.03 10*3/uL 0.00-0.06 code = 2704930423) LYMPH x10^3 (test code 1.66 10*3/uL 1.09-3.23 = 731-0) MONO x10^3 (test code 0.56 10*3/uL 0.36-1.02 = 742-7) EOS x10^3 (test code = 0.10 10*3/uL 0.06-0.53 711-2) BASO x10^3 (test code 0.04 10*3/uL 0.01-0.09 = 704-7) Lab Interpretation Abnormal (test code = 49518-0) [facility] 20:21:19 Test Item Value Reference Range Interpretation Comments LIPASE (test code = 9234313350) 307 U/L 0-220 H Lab Interpretation (test code = Abnormal 77718-1) [facility]OLIC PANEL (06030)2021-05-20 20:21:19 Test Item Value Reference Range Interpretation Comments NA (test code = 132 mmol/L 135-145 L 1337262884) K (test code = 4.3 mmol/L 3.5-5.0 9374396587) CL (test code = 100 mmol/L 98-108 5030192984) CO2 TOTAL (test code = 18 mmol/L 23-31 L 2715329981) AGAP (test code = 2-16 0103704071) BUN (test code = 32 mg/dL 7-23 H 5899279963) GLUCOSE (test code = 100 mg/dL 70-110 4827868820) CREATININE (test code = 1.76 mg/dL 0.60-1.25 H 8048583030) TOTAL BILI (test code = 0.7 mg/dL 0.1-1.6 4498773988) CALCIUM (test code = 9.6 mg/dL 8.6-10.6 0940780183) T PROTEIN (test code = 7.5 g/dL 6.3-8.2 6516750189) ALBUMIN (test code = 4.7 g/dL 3.5-5.0 1880929494) ALK PHOS (test code = 104 U/L 34-122 5939295249) ALTv (test code = 23 U/L 5-50 2-6) AST(SGOT) (test code = 29 U/L 13-40 9170091308) eGFR (test code = mL/min/1.73m2 9198386841) GILBERTO (test code = GILBERTO) Association of [...] tests). Lab Interpretation Abnormal (test code = 96348-5) [facility] WITH [id number] 20:15:39 Test Item Value Reference Range Interpretation Comments WBC (test code = See_Comment [Automated message] 6690-2) The system [employer] generated this result transmitted ref erence range: 4.20 - 1 0.70 10*3/?L. The re ference range was not u sed to interpret this result as normal/abnor mal. RBC (test code = See_Comment [Automated message] 129-8) The system [employer] generated this result transmitted ref erence range: [...] RDW-SD (test code 44.8 fL 38.5-51.6 = 96403-3) RDW-CV (test code 13.7 % 12.1-15.4 = 788-0) PLT (test code = See_Comment [Automated message] 777-3) The system [employer] generated this result transmitted ref erence range: 150 - 32 8 10*3/?L. The re ference range was not u sed to interpret this result as normal/abnor mal. MPV (test code = 9.8 fL 9.8-13.0 95922-0) NRBC/100 WBC (test See_Comment [Automat ed message] code = 8995038690) The syste m which generated this result transmitted ref erence range: 0.0 - 10 .0 /100 WBCs. The refer ence range was not u sed to interpret this result as normal/abnor mal. NRBC x10^3 (test <0.01 See_Comment [Automated message] code = 3922020454) The syste m which generated this result transmitted ref erence range: 10*3/?L. The reference range was not used to interpr et this result as normal/abnormal . GRAN MAT (NEUT) % 55.9 % (test code = 770-8) IMM GRAN % (test 0.40 % code = 4718393099) LYMPH % (test code 32.5 % = 736-9) MONO % (test code 9.4 % = 5905-5) EOS % (test code = 1.2 % 713-8) BASO % (test code 0.6 % = 706-2) GRAN MAT 3.87 10*3/uL 1.99-6.95 x10^3(ANC) (test code = 7980211688) IMM GRAN x10^3 0.03 10*3/uL 0.00-0.06 (test code = 8666362339) LYMPH x10^3 (test 2.25 10*3/uL 1.09-3.23 code = 731-0) MONO x10^3 (test 0.65 10*3/uL 0.36-1.02 code = 742-7) EOS x10^3 (test 0.08 10*3/uL 0.06-0.53 code = 711-2) BASO x10^3 (test 0.04 10*3/uL 0.01-0.09 code = 704-7) [facility] CenterL[facility] Whole Livrq4306-76-91 20:07:57 Test Item Value Reference Range Interpretation Comments LACTIC ACID (test code = 1.81 mmol/L 0.50-2.20 4358641013) Lab Interpretation (test code = Normal 23052-2) [facility] (NA, K, CL, CO2, GLUCOSE, BUN, CREATININE, CA)2021-05-08 10:32:35 Test Item Value Reference Range Interpretation Comments NA (test code = 135 mmol/L 135-145 6080436075) K (test code = 4.2 mmol/L 3.5-5.0 1718985339) CL (test code = 106 mmol/L 98-108 1530968070) CO2 TOTAL (test code 23 mmol/L 23-31 = 9171858566) AGAP (test code = 2-16 4142829269) BUN (test code = 22 mg/dL 7-23 5335741693) GLUCOSE (test code = 87 mg/dL 70-110 8699368220) CREATININE (test code 1.21 mg/dL 0.60-1.25 = 6742635141) CALCIUM (test code = 8.7 mg/dL 8.6-10.6 6632193808) eGFR (test code = mL/min/1.73m2 8784101246) GILBERTO (test code = GIBLERTO) Association of Glomerular Filtration Rate (GFR) and [...] or urine or abnormalities in imaging tests). [facility] Metabolic Panel (NA, K, CL, CO2, GLUCOSE, BUN, CREATININE, CA)2021-05-08 10:32:35 Test Item Value Reference Range Interpretation Comments NA (test code = 135 mmol/L 135-145 4870357011) K (test code = 4.2 mmol/L 3.5-5.0 6664294056) CL (test code = 106 mmol/L 98-108 8662389144) CO2 TOTAL (test code 23 mmol/L 23-31 = 1410658311) AGAP (test code = 2-16 9563071559) BUN (test code = 22 mg/dL 7-23 8229723339) GLUCOSE (test code = 87 mg/dL 70-110 6564737839) CREATININE (test code 1.21 mg/dL 0.60-1.25 = 9060789897) CALCIUM (test code = 8.7 mg/dL 8.6-10.6 1492645450) eGFR (test code = mL/min/1.73m2 3311213852) GILBERTO (test code = GILBERTO) Association of [...] or urine or abnormalities in imaging tests). [facility] with Mvmfckchoeft5651-34-77 10:12:52 Test Item Value Reference Range Interpretation [...] RDW-SD (test code = 48.4 fL 38.5-51.6 02479-8) RDW-CV (test code = 14.0 % 12.1-15.4 788-0) PLT (test code = See_Comment [Automated 777-3) message] The sy stem which generated this result transmitted reference range : 150 - 328 10*3/ ?L. The reference r meredith was not used to interpret this result as normal/abnormal . MPV (test code = 9.6 fL 9.8-13.0 L 11957-5) NRBC/100 WBC (test See_Comment [Automat ed code = 1891543603) message] The system which generated this result transmitted reference range : 0.0 - 10.0 /100 WBCs. The refer ence range was not u sed to interpret th is result as normal/abnormal . NRBC x10^3 (test code <0.01 See_Comment [Auto mated = 5133510834) message] The s ystem which generated this result transmitted reference range : 10*3/?L. The reference range was not used to interpret this result as normal/abnormal . GRAN MAT (NEUT) % 55.6 % (test code = 770-8) IMM GRAN % (test code 0.20 % = 8200750449) LYMPH % (test code = 31.5 % 736-9) MONO % (test code = 9.9 % 5905-5) EOS % (test code = 2.0 % 713-8) BASO % (test code = 0.8 % 706-2) GRAN MAT x10^3(ANC) 2.76 10*3/uL 1.99-6.95 (test code = 6687016762) IMM GRAN x10^3 (test <0.03 0.00-0.06 code = 6238545551) LYMPH x10^3 (test code 1.56 10*3/uL 1.09-3.23 = 731-0) MONO x10^3 (test code 0.49 10*3/uL 0.36-1.02 = 742-7) EOS x10^3 (test code = 0.10 10*3/uL 0.06-0.53 711-2) BASO x10^3 (test code 0.04 10*3/uL 0.01-0.09 = 704-7) Lab Interpretation Abnormal (test code = 04204-0) [facility] with Zzytaeiiwpqb3851-52-92 10:12:52 Test Item Value Reference Range Interpretation [...] RDW-SD (test code = 48.4 fL 38.5-51.6 61307-1) RDW-CV (test code = 14.0 % 12.1-15.4 788-0) PLT (test code = See_Comment [Automated 777-3) message] The sy stem which generated this result transmitted reference range : 150 - 328 10*3/ ?L. The reference r meredith was not used to interpret this result as normal/abnormal . MPV (test code = 9.6 fL 9.8-13.0 L 36382-9) NRBC/100 WBC (test See_Comment [Automat ed code = 5558984712) message] The system which generated this result transmitted reference range : 0.0 - 10.0 /100 WBCs. The refer ence range was not u sed to interpret th is result as normal/abnormal . NRBC x10^3 (test code <0.01 See_Comment [Auto mated = 4168311988) message] The s ystem which generated this result transmitted reference range : 10*3/?L. The reference range was not used to interpret this result as normal/abnormal . GRAN MAT (NEUT) % 55.6 % (test code = 770-8) IMM GRAN % (test code 0.20 % = 1952453265) LYMPH % (test code = 31.5 % 736-9) MONO % (test code = 9.9 % 5905-5) EOS % (test code = 2.0 % 713-8) BASO % (test code = 0.8 % 706-2) GRAN MAT x10^3(ANC) 2.76 10*3/uL 1.99-6.95 (test code = 1743019838) IMM GRAN x10^3 (test <0.03 0.00-0.06 code = 2736473253) LYMPH x10^3 (test code 1.56 10*3/uL 1.09-3.23 = 731-0) MONO x10^3 (test code 0.49 10*3/uL 0.36-1.02 = 742-7) EOS x10^3 (test code = 0.10 10*3/uL 0.06-0.53 711-2) BASO x10^3 (test code 0.04 10*3/uL 0.01-0.09 = 704-7) Lab Interpretation Abnormal (test code = 28038-0) [facility] METABOLIC PANEL (NA, K, CL, CO2, GLUCOSE, BUN, CREATININE, CA)2021-05-08 01:11:57 Test Item Value Reference Range Interpretation Comments NA (test code = 134 mmol/L 135-145 L 1949824211) K (test code = 4.7 mmol/L 3.5-5.0 7410632976) CL (test code = 100 mmol/L 98-108 8042790581) CO2 TOTAL (test code = 24 mmol/L 23-31 8741622145) AGAP (test code = 2-16 5458725629) BUN (test code = 27 mg/dL 7-23 H 7821805997) GLUCOSE (test code = 94 mg/dL 70-110 6542113333) CREATININE (test code = 1.31 mg/dL 0.60-1.25 H 4880434330) CALCIUM (test code = 9.5 mg/dL 8.6-10.6 9561833923) eGFR (test code = mL/min/1.73m2 9391729178) GILBERTO (test code = GILBERTO) Association of [...] tests). Lab Interpretation Abnormal (test code = 96376-5) [facility]76187[facility] (ALB,T.PRO,BILI T,BU/BC,ALT,AST,ALK PHOS)2021-05-08 01:11:57 Test Item Value Reference Range Interpretation Comments TOTAL BILI (test code = 2016992731) 0.8 mg/dL 0.1-1.1 BILI UNCON (test code = 5163739360) 0.2 mg/dL 0.1-1.1 BILI CONJ (test code = 2821721928) 0.0 mg/dL 0.0-0.3 T PROTEIN (test code = 4555020984) 7.1 g/dL 6.3-8.2 ALBUMIN (test code = 6634030961) 4.4 g/dL 3.5-5.0 ALK PHOS (test code = 4703151717) 88 U/L 34-122 ALTv (test code = 1742-6) 40 U/L 5-50 AST(SGOT) (test code = 5406959084) 38 U/L 13-40 Lab Interpretation (test code = Normal 72135-1) [facility] (NA, K, CL, CO2, GLUCOSE, BUN, CREATININE, CA)2021-05-08 01:11:57 Test Item Value Reference Range Interpretation Comments NA (test code = 134 mmol/L 135-145 L 1529386514) K (test code = 4.7 mmol/L 3.5-5.0 3083688194) CL (test code = 100 mmol/L 98-108 6395231763) CO2 TOTAL (test code = 24 mmol/L 23-31 6988302745) AGAP (test code = 2-16 2647894364) BUN (test code = 27 mg/dL 7-23 H 4160070099) GLUCOSE (test code = 94 mg/dL 70-110 3943290632) CREATININE (test code = 1.31 mg/dL 0.60-1.25 H 5373512433) CALCIUM (test code = 9.5 mg/dL 8.6-10.6 9424586193) eGFR (test code = mL/min/1.73m2 8183478654) GILBERTO (test code = GILBERTO) Association of [...] tests). Lab Interpretation Abnormal (test code = 85647-8) [facility]42749[facility] (ALB,T.PRO,BILI T,BU/BC,ALT,AST,ALK PHOS)2021-05-08 01:11:57 Test Item Value Reference Range Interpretation Comments TOTAL BILI (test code = 1688362845) 0.8 mg/dL 0.1-1.1 BILI UNCON (test code = 5049391210) 0.2 mg/dL 0.1-1.1 BILI CONJ (test code = 5978447750) 0.0 mg/dL 0.0-0.3 T PROTEIN (test code = 4820285700) 7.1 g/dL 6.3-8.2 ALBUMIN (test code = 1230993622) 4.4 g/dL 3.5-5.0 ALK PHOS (test code = 5266668687) 88 U/L 34-122 ALTv (test code = 1742-6) 40 U/L 5-50 AST(SGOT) (test code = 8184819358) 38 U/L 13-40 Lab Interpretation (test code = Normal 84186-6) [facility] WITH FNZM0279-89-88 00:59:56 Test Item Value Reference Range Interpretation Comments WBC (test code = See_Comment [Automated 2690-2) message] The sy stem which generated this result transmitted reference range : 4.20 - 10.70 10*3/?L. The reference range was not used to interpret this result as normal/abnormal . RBC (test code = See_Comment L [Automated 319-8) message] The sy stem which generated this [...] RDW-SD (test code = 46.9 fL 38.5-51.6 80024-1) RDW-CV (test code = 13.9 % 12.1-15.4 788-0) PLT (test code = See_Comment [Automated 777-3) message] The sy stem which generated this result transmitted reference range : 150 - 328 10*3/ ?L. The reference r meredith was not used to interpret this result as normal/abnormal . MPV (test code = 10.0 fL 9.8-13.0 73646-2) NRBC/100 WBC (test See_Comment [Automat ed code = [id number]) message] The system which generated this result transmitted reference range : 0.0 - 10.0 /100 WBCs. The refer ence range was not u sed to interpret th is result as normal/abnormal . NRBC x10^3 (test code <0.01 See_Comment [Auto mated = [id number]) message] The s ystem which generated this result transmitted reference range : 10*3/?L. The reference range was not used to interpret this result as normal/abnormal . GRAN MAT (NEUT) % 53.9 % (test code = 770-8) IMM GRAN % (test code 0.30 % = [id number]) LYMPH % (test code = 32.0 % 736-9) MONO % (test code = 11.6 % 5905-5) EOS % (test code = 1.6 % 713-8) BASO % (test code = 0.6 % 706-2) GRAN MAT x10^3(ANC) 3.67 10*3/uL 1.99-6.95 (test code = [id number]) IMM GRAN x10^3 (test <0.03 0.00-0.06 code = [id number]) LYMPH x10^3 (test code 2.18 10*3/uL 1.09-3.23 = 731-0) MONO x10^3 (test code 0.79 10*3/uL 0.36-1.02 = 742-7) EOS x10^3 (test code = 0.11 10*3/uL 0.06-0.53 711-2) BASO x10^3 (test code 0.04 10*3/uL 0.01-0.09 = 704-7) Lab Interpretation Abnormal (test code = 28338-4) [facility] WITH [id number] 00:59:56 Test Item Value Reference Range Interpretation [...] RDW-SD (test code = 46.9 fL 38.5-51.6 77487-9) RDW-CV (test code = 13.9 % 12.1-15.4 788-0) PLT (test code = See_Comment [Automated 777-3) message] The sy stem which generated this result transmitted reference range : 150 - 328 10*3/ ?L. The reference r meredith was not used to interpret this result as normal/abnormal . MPV (test code = 10.0 fL 9.8-13.0 26238-6) NRBC/100 WBC (test See_Comment [Automat ed code = [id number]) message] The system which generated this result transmitted reference range : 0.0 - 10.0 /100 WBCs. The refer ence range was not u sed to interpret th is result as normal/abnormal . NRBC x10^3 (test code <0.01 See_Comment [Auto mated = [id number]) message] The s ystem which generated this result transmitted reference range : 10*3/?L. The reference range was not used to interpret this result as normal/abnormal . GRAN MAT (NEUT) % 53.9 % (test code = 770-8) IMM GRAN % (test code 0.30 % = [id number]) LYMPH % (test code = 32.0 % 736-9) MONO % (test code = 11.6 % 5905-5) EOS % (test code = 1.6 % 713-8) BASO % (test code = 0.6 % 706-2) GRAN MAT x10^3(ANC) 3.67 10*3/uL 1.99-6.95 (test code = [id number]) IMM GRAN x10^3 (test <0.03 0.00-0.06 code = [id number]) LYMPH x10^3 (test code 2.18 10*3/uL 1.09-3.23 = 731-0) MONO x10^3 (test code 0.79 10*3/uL 0.36-1.02 = 742-7) EOS x10^3 (test code = 0.11 10*3/uL 0.06-0.53 711-2) BASO x10^3 (test code 0.04 10*3/uL 0.01-0.09 = 704-7) Lab Interpretation Abnormal (test code = 90724-5) [facility] W/AUTO [id number] 09:20:00 Test Item Value Reference Range Interpretation [...] (test code NO = MDIFF) CBC W/AUTO [id number] 08:59:00 Test Item Value Reference Range Interpretation [...] REQUIRED (test code = MDIFF) BASIC METABOLIC [id number] 08:21:00 Test Item Value Reference Range Interpretation [...] 8.4 mg/dL 8.0-10.5 N CA) BASIC METABOLIC [id number] 08:34:00 Test Item Value Reference Range Interpretation [...] 8.4 mg/dL 8.0-10.5 N CA) CBC W/AUTO [id number] 07:41:00 Test Item Value Reference Range Interpretation [...] = MDIFF) UA RFLX MICR CULT IF [id number] 10:10:00 Test Item Value Reference Range Interpretation [...] Suprapubic Pain Temperature > 100.4 FSpecimen Description: [facility] METABOLIC [id number] 04:13:00 Test Item Value Reference Range Interpretation [...] mg/dL 8.0-10.5 N CA) Coronavirus 2019 nCoV [id number] 22:03:00 Test Item Value Reference Range Interpretation Comments Coronavirus 2019 Negative Negative Performed b y certified nCoV Bedside (soil tester at [place] [facility] code = CtrNegative res ults should [id number]) be treated as presumptive and, ifinconsis tent with clinical signs and symptoms or necessaryfor patient management, fifi uld be tested with an alternativemole cular assay. Negative result s do not preclude VSYS-JmR-8gmevd tion and should not be u sed as the sole basis forp atient management deci sions. Negative result s should beconsidered in the context of a patient's recent exposures,histo ry, presence of clinical sig ns and symptoms consis tentwith COVID-19. CBC W/AUTO [id number] 21:11:00 Test Item Value Reference Range Interpretation [...] MX#) 0.6 k/mm3 0.1-0.8 N BASIC METABOLIC [id number] 19:00:00 Test Item Value Reference Range Interpretation [...] POCGLU) 92 MG/DL - CT ABD PELVIS [id number] 00:00:00 [facility] SHANA LAKEName: DORA JOSEPH : 1970 Sex: MName: DORA JOSEPH FSED : 1970 Age/S: 51 / M [address] Unit #: [id number] Loc: [place] [address] Phys: Marcello Benoit MD Acct: [id number] Dis Date: Status: REG CORBINNE #: Exam Date: 04/28/2021 1914 FAX #: Reason: epigastric and LLQ pain, R-sided colostomy EXAMS: CPT CODE: [id number] CT ABD PELVIS W/CONT 75066 PROCEDURE INFORMATION: Exam: CT Abdomen And Pelvis [...] : 1970 Age/S: 51 / M [address] Unit #: [id number] Loc: [place] Erazo [address] Phys: Marcello Benoit MD Acct: [id number] Dis Date: Status: REG ER PHONE #: Exam Date: 04/28/20211913 FAX #: Reason: epigastric and LLQ pain, R-sided colostomy EXAMS: CPT CODE: [id number] CT ABD PELVIS W/CONT 18665 <Continued> Reproductive: Unremarkable as visualized. Bones/joints: Unremarkable. [...] 04/28/2021 (1955) Magi Orig Print D/T: S: (1955) PAGE 2 Signed ReportBasic Metabolic Panel (NA, K, CL, CO2, GLUCOSE, BUN, CREATININE, CA)2020-08-23 10:29:00 Test Item Value Reference Range Interpretation Comments NA (test code = 139 mmol/L 135-145 3507303266) K (test code = 4.0 mmol/L 3.5-5 5623830809) CL (test code = 108 mmol/L 98-108 9477860077) CO2 TOTAL (test code = 22 mmol/L 23-31 L 8589071895) AGAP (test code = 2-16 1975296088) BUN (test code = 25 mg/dL 7-23 H 2975366167) GLUCOSE (test code = 91 mg/dL 70-110 5356534324) CREATININE (test code = 1.14 mg/dL 0.6-1.25 7330453912) CALCIUM (test code = 8.9 mg/dL 8.6-10.6 7320822536) eGFR Calculation mL/min/1.73m2 (Non-) (test code = 4920999416) eGFR Calculation mL/min/1.73m2 () (test code = 6885369152) GILBERTO (test code = GILBERTO) Association of [...] tests). Lab Interpretation Abnormal (test code = 64018-1) [facility] [id number] 10:13:00 Test Item Value Reference Range Interpretation Comments WBC (test code = 6690-2) See_Comment [A utomated message] The system [employer] generated this result transmit dain reference range : 4.20 - 10.70 10*3/?L. The reference range was not used to interpret this result as normal/abnormal . RBC (test code = 789-8) See_Comment L [Au tomated message] The system [employer] generated this result transmit dain reference range [...] 777-3) See_Comment [Au tomated message] The system [employer] generated this result transmit dain reference range : 150 - 328 10*3/?L. The reference range was not used to interpret this result as normal/abnormal . MPV (test code = 9.0 fL 9.8-13 L 20447-9) RDW-CV (test code = 18.7 % 12.1-15.4 H 788-0) RDW-SD (test code = 59.7 fL 38.5-51.6 H 55640-7) NRBC x10^3 (test code = <0.01 See_Comment [Au tomated message] 7943446484) The system [employer] generated this result transmit dain reference range : 10*3/?L. The reference range was not used to interpret this result as normal/abnormal . NRBC/100 WBC (test code See_Comment [Au tomated message] = 7601602852) The system I AND [employer] generated this result transmit dain reference range : 0.0 - 10.0 /100 WBC s. The reference r meredith was not used to interpret this result as normal/abnormal . IPF % (test code = 7388206053) Lab Interpretation (test Abnormal code = 03570-3) [facility]OVID[facility] (ID NOW RAPID TESTING)2020-08-23 00:56:00 Test Item Value Reference Range Interpretation Comments SARS-CoV-2 Rapid ID NOW Not Detected Not Detected (test code = 15880-4) GILBERTO (test code = GILBERTO) ID NOW COVID-19 Assay is an isothermal nucleic acid amplification test intended for the qualitative detection of nucleic acid from SARS-CoV-2 viral RNA in nasopharyngeal (PARENT COACH) specimens. It is used under Emergency Use [...] indicated. Lab Interpretation Normal (test code = 43383-9) [facility] Metabolic Panel (NA, K, CL, CO2, GLUCOSE, BUN, CREATININE, CA)2020-08-22 22:36:00 Test Item Value Reference Range Interpretation Comments NA (test code = 133 mmol/L 135-145 L 7572574848) K (test code = 4.5 mmol/L 3.5-5 0838576146) CL (test code = 104 mmol/L 98-108 7110116769) CO2 TOTAL (test code = 25 mmol/L 23-31 9142036751) AGAP (test code = 2-16 4112916679) BUN (test code = 27 mg/dL 7-23 H 7870962077) GLUCOSE (test code = 94 mg/dL 70-110 2343924344) CREATININE (test code = 1.33 mg/dL 0.6-1.25 H 2779617169) CALCIUM (test code = 9.5 mg/dL 8.6-10.6 3568111761) eGFR Calculation mL/min/1.73m2 (Non-) (test code = 5661697365) eGFR Calculation mL/min/1.73m2 () (test code = 8383668666) GILBERTO (test code = GILBERTO) Association of [...] tests). Lab Interpretation Abnormal (test code = 94842-5) [facility] (ALB, T.PRO, BILI T, BU/BC, ALT, AST, ALK PHOS)2020-08-22 22:36:00 Test Item Value Reference Range Interpretation Comments TOTAL BILI (test code = 8650183194) 0.4 mg/dL 0.1-1.1 BILI UNCON (test code = 9381780620) 0.1 mg/dL 0.1-1.1 BILI CONJ (test code = 8520281354) 0.0 mg/dL 0-0.3 T PROTEIN (test code = 9514798313) 6.8 g/dL 6.3-8.2 ALBUMIN (test code = 1107096487) 4.0 g/dL 3.5-5 ALK PHOS (test code = 9313168131) 78 U/L 34-122 ALTv (test code = 1742-6) 35 U/L 5-50 AST(SGOT) (test code = 0608159512) 29 U/L 13-40 Lab Interpretation (test code = Normal 98785-3) [facility] with Jxugkyarbump5023-31-13 22:15:00 Test Item Value Reference Range Interpretation [...] (test code = 60.6 fL 38.5-51.6 H 24282-1) RDW-CV (test code = 19.0 % 12.1-15.4 H 788-0) PLT (test code = See_Comment [Automated 777-3) message] The sy stem which generated this result transmitted reference range : 150 - 328 10*3/ ?L. The reference r meredith was not used to interpret this result as normal/abnormal . MPV (test code = 9.3 fL 9.8-13 L 56258-5) NRBC/100 WBC (test See_Comment [Automat ed code = 7698176717) message] The system which generated this result transmitted reference range : 0.0 - 10.0 /100 WBCs. The refer ence range was not u sed to interpret th is result as normal/abnormal . NRBC x10^3 (test code <0.01 See_Comment [Auto mated = 0872876610) message] The s ystem which generated this result transmitted reference range : 10*3/?L. The reference range was not used to interpret this result as normal/abnormal . GRAN MAT (NEUT) % 58.6 % (test code = 770-8) IMM GRAN % (test code 0.60 % = 4715776135) LYMPH % (test code = 28.2 % 736-9) MONO % (test code = 9.5 % 5905-5) EOS % (test code = 2.4 % 713-8) BASO % (test code = 0.7 % 706-2) GRAN MAT x10^3(ANC) 3.14 10*3/uL 1.99-6.95 (test code = 9469112268) IMM GRAN x10^3 (test 0.03 10*3/uL 0-0.06 code = 8425357293) LYMPH x10^3 (test code 1.51 10*3/uL 1.09-3.23 = 731-0) MONO x10^3 (test code 0.51 10*3/uL 0.36-1.02 = 742-7) EOS x10^3 (test code = 0.13 10*3/uL 0.06-0.53 711-2) BASO x10^3 (test code 0.04 10*3/uL 0.01-0.09 = 704-7) Lab Interpretation Abnormal (test code = 34331-1) [facility] CenterCT SOFT TISSUE NECK W [id number] 00:47:10Impression: 1. Patent aerodigestive tract.2. No discrete [...] glands are normal. Thyroid gland is unremarkable. Tariff Compiling Clerk spaces are normal. Buccal spaces are normal. [...] submandibular glands are normal. Thyroid gland is unremarkable.Tariff Compiling Clerk spaces are normal. Buccal spaces are normal. [...] or abscess is identified.RL: [id number] of Report [facility]COVID-[facility] (ID NOW RAPID TESTING)2020-07-09 23:23:00 Test Item Value Reference Range Interpretation Comments SARS-CoV-2 Rapid ID NOW Not Detected Not Detected (test code = 04070-3) GILBERTO (test code = GILBERTO) ID NOW COVID-19 Assay is an isothermal nucleic acid amplification test intended for the qualitative detection of nucleic acid from SARS-CoV-2 viral RNA in nasopharyngeal (PARENT COACH) specimens. It is used under Emergency Use [...] indicated. Lab Interpretation Normal (test code = 38437-9) [facility] CenterUrinalysis2020-11-16 23:21:00 Test Item Value Reference Range Interpretation Comments APPEARANCE (test code = Clear Clear 3239697345) COLOR (test code = Yellow Yellow 2593959338) PH (test code = 4.8-8.0 5649721765) SP GRAVITY (test code = 1.003-1.030 1112033463) GLU U QUAL (test code = Normal Normal 7576040546) BLOOD (test code = Negative Negative 3820724177) KETONES (test code = Negative Negative 9178417313) PROTEIN (test code = 30 mg/dL Negative A 2887-8) UROBILIN (test code = Normal Normal 1814927250) BILIRUBIN (test code = Negative Negative 3394506470) NITRITE (test code = Negative Negative 1546836789) LEUK ROGER (test code = Negative Negative 8051220630) RBC/HPF (test code = <1 See_Comment [Autom ated message] 2908433263) The system [employer] generated this result transmitted ref erence range: 0 - 3 HP F. The reference range was not used to int erpret this result as normal/abnormal . WBC/HPF (test code = See_Comment [Autom ated message] 6646058571) The system [employer] generated this result transmitted ref erence range: 0 - 5 HP F. The reference range was not used to int erpret this result as normal/abnormal . BACTERIA (test code = Negative Negative 3461119378) MUCOUS (test code = Moderate Negative LPF A 8354944880) HYAL CAST (test code = See_Comment H [Aut omated message] 7523717416) The system [employer] generated this result transmitted ref erence range: <=2 LPF. The reference range was not used to int erpret this result as normal/abnormal . Lab Interpretation (test Abnormal code = 19691-1) [facility] Met[facility] (NA, K, CL, CO2, GLUCOSE, BUN, CREATININE, CA)2020-07-09 23:20:00 Test Item Value Reference Range Interpretation Comments NA (test code = 135 mmol/L 135-145 9469388041) K (test code = 3.9 mmol/L 3.5-5 6144675285) CL (test code = 107 mmol/L 98-108 9199986809) CO2 TOTAL (test code = 20 mmol/L 23-31 L 8677490882) AGAP (test code = 2-16 5621951181) BUN (test code = 27 mg/dL 7-23 H 9714876255) GLUCOSE (test code = 86 mg/dL 70-110 9882582337) CREATININE (test code = 1.11 mg/dL 0.6-1.25 0644642878) CALCIUM (test code = 9.0 mg/dL 8.6-10.6 1763140344) eGFR Calculation mL/min/1.73m2 (Non-) (test code = 4643916420) eGFR Calculation mL/min/1.73m2 () (test code = 0741203226) GILBERTO (test code = GILBERTO) Association of [...] tests). Lab Interpretation Abnormal (test code = 55453-9) [facility] CenterRANORT[facility] STREP SCREEN FOR GROUP [id number] 23:11:00 Test Item Value Reference Range Interpretation Comments Streptococcus pyogenes (group A) Negative Negative antigen (test code = 57229-1) Lab Interpretation (test code = Normal 16132-1) [facility] with [id number] 23:02:00 Test Item Value Reference Range Interpretation [...] (test code = 55.5 fL 38.5-51.6 H 17275-8) RDW-CV (test code = 18.9 % 12.1-15.4 H 788-0) PLT (test code = See_Comment [Automated 777-3) message] The sy stem which generated this result transmitted reference range : 150 - 328 10*3/ ?L. The reference r meredith was not used to interpret this result as normal/abnormal . MPV (test code = 8.9 fL 9.8-13 L 36824-0) NRBC/100 WBC (test See_Comment [Automat ed code = 0300673323) message] The system which generated this result transmitted reference range : 0.0 - 10.0 /100 WBCs. The refer ence range was not u sed to interpret th is result as normal/abnormal . NRBC x10^3 (test code <0.01 See_Comment [Auto mated = 4277810087) message] The s ystem which generated this result transmitted reference range : 10*3/?L. The reference range was not used to interpret this result as normal/abnormal . GRAN MAT (NEUT) % 59.4 % (test code = 770-8) IMM GRAN % (test code 0.20 % = 5839340633) LYMPH % (test code = 29.9 % 736-9) MONO % (test code = 9.0 % 5905-5) EOS % (test code = 1.2 % 713-8) BASO % (test code = 0.3 % 706-2) GRAN MAT x10^3(ANC) 3.56 10*3/uL 1.99-6.95 (test code = 2325467212) IMM GRAN x10^3 (test <0.03 0-0.06 code = 1403346871) LYMPH x10^3 (test code 1.79 10*3/uL 1.09-3.23 = 731-0) MONO x10^3 (test code 0.54 10*3/uL 0.36-1.02 = 742-7) EOS x10^3 (test code = 0.07 10*3/uL 0.06-0.53 711-2) BASO x10^3 (test code <0.03 0.01-0.09 = 704-7) Lab Interpretation Abnormal (test code = 63006-9) [facility] CenterUrinalysis2020-10-13 13:37:00 Test Item Value Reference Range Interpretation Comments APPEARANCE (test code = Hazy Clear A 8162694064) COLOR (test code = Yellow Yellow 6382652447) PH (test code = 4.8-8.0 1577084634) SP GRAVITY (test code = 1.003-1.030 H 6061238100) GLU U QUAL (test code = Normal Normal 0025146996) BLOOD (test code = Negative Negative 4944841088) KETONES (test code = Negative Negative 0482225046) PROTEIN (test code = Negative Negative 2887-8) UROBILIN (test code = Normal Normal 2057930995) BILIRUBIN (test code = Negative Negative 8756911265) NITRITE (test code = Negative Negative 5513187092) LEUK ROGER (test code = Negative Negative 2757377871) RBC/HPF (test code = See_Comment H [Autom ated message] 0501209176) The system [employer] generated this result transmitted ref erence range: 0 - 3 HP F. The reference range was not used to int erpret this result as normal/abnormal . WBC/HPF (test code = See_Comment [Autom ated message] 7148008195) The system [employer] generated this result transmitted ref erence range: 0 - 5 HP F. The reference range was not used to int erpret this result as normal/abnormal . BACTERIA (test code = Negative Negative 2225285293) MUCOUS (test code = Moderate Negative LPF A 7857833421) CA OXALATE (test code = See_Comment [Au tomated message] 8825638808) The system [employer] generated this result transmitted ref erence range: <=1 HPF. The reference range was not used to int erpret this result as normal/abnormal . SPERM (test code = See_Comment H [Automat ed message] 3426228253) The system [employer] generated this result transmitted ref erence range: <=1 HPF. The reference range was not used to int erpret this result as normal/abnormal . HYAL CAST (test code = See_Comment H [Aut omated message] 1209128904) The system [employer] generated this result transmitted ref erence range: <=2 LPF. The reference range was not used to int erpret this result as normal/abnormal . Lab Interpretation (test Abnormal code = 50712-4) [facility] CenterCT [facility] W [id number] 13:22:00CT Abdomen and Pelvis with intravenous contrast. [...] andlower portion of thesigmoid noted with normal-appearing Aarno's pouch. Some of the small bowel loops [...] infection. Left seminal vesicleshowed no significant enhancement. [facility], Radiant Results Inft User - 06/05/2020 [...] sign of infection. Left seminal vesicleshowed no significantenhancement.[facility] [id number] 12:40:00 Test Item Value Reference Range Interpretation Comments TROPONIN I (test <0.012 See_Comment [Automated code = 3834467563) message] The system which generated this result [...] ? Lab Interpretation Normal (test code = 32037-1) [facility] Metabolic Panel (NA, K, CL, CO2, GLUCOSE, BUN, CREATININE, CA)2020-06-05 12:28:00 Test Item Value Reference Range Interpretation Comments NA (test code = 139 mmol/L 135-145 9288715749) K (test code = 4.4 mmol/L 3.5-5 3263052021) CL (test code = 112 mmol/L 98-108 H 6549296172) CO2 TOTAL (test code = 24 mmol/L 23-31 1174746989) AGAP (test code = 2-16 9462768805) BUN (test code = 23 mg/dL 7-23 6044751351) GLUCOSE (test code = 88 mg/dL 70-110 7337381070) CREATININE (test code = 0.96 mg/dL 0.6-1.25 2373441506) CALCIUM (test code = 9.5 mg/dL 8.6-10.6 8429620764) eGFR Calculation mL/min/1.73m2 (Non-) (test code = 8016311715) eGFR Calculation mL/min/1.73m2 () (test code = 5375036612) GILBERTO (test code = GILBERTO) Association of [...] tests). Lab Interpretation Abnormal (test code = 10065-8) [facility] (ALB, T.PRO, BILI T, BU/BC, ALT, AST, ALK PHOS)2020-06-05 12:28:00 Test Item Value Reference Range Interpretation Comments TOTAL BILI (test code = 8155926031) 0.5 mg/dL 0.1-1.1 BILI UNCON (test code = 8104044961) 0.3 mg/dL 0.1-1.1 BILI CONJ (test code = 6113424848) 0.0 mg/dL 0-0.3 T PROTEIN (test code = 1038819264) 6.6 g/dL 6.3-8.2 ALBUMIN (test code = 4134851847) 3.7 g/dL 3.5-5 ALK PHOS (test code = 1040528260) 79 U/L 34-122 ALTv (test code = 1742-6) 23 U/L 5-50 AST(SGOT) (test code = 2044224331) 27 U/L 13-40 Lab Interpretation (test code = Normal 50032-2) [facility] CenterLipase [id number] 12:28:00 Test Item Value Reference Range Interpretation Comments LIPASE (test code = 4096911847) 150 U/L 0-220 Lab Interpretation (test code = Normal 05907-3) [facility] CenterCBC with Dujkxeprlqlc1128-30-57 12:11:00 Test Item Value Reference Range Interpretation [...] (test code = 62.2 fL 38.5-51.6 H 48914-3) RDW-CV (test code = 20.0 % 12.1-15.4 H 788-0) PLT (test code = See_Comment [Automated 777-3) message] The sy stem which generated this result transmitted reference range : 150 - 328 10*3/ ?L. The reference r meredith was not used to interpret this result as normal/abnormal . MPV (test code = 10.0 fL 9.8-13 86787-8) NRBC/100 WBC (test See_Comment [Automat ed code = 4227919766) message] The system which generated this result transmitted reference range : 0.0 - 10.0 /100 WBCs. The refer ence range was not u sed to interpret th is result as normal/abnormal . NRBC x10^3 (test code <0.01 See_Comment [Auto mated = 5823628424) message] The s ystem which generated this result transmitted reference range : 10*3/?L. The reference range was not used to interpret this result as normal/abnormal . GRAN MAT (NEUT) % 65.7 % (test code = 770-8) IMM GRAN % (test code 0.30 % = 1541071567) LYMPH % (test code = 21.2 % 736-9) MONO % (test code = 10.0 % 5905-5) EOS % (test code = 2.3 % 713-8) BASO % (test code = 0.5 % 706-2) GRAN MAT x10^3(ANC) 3.99 10*3/uL 1.99-6.95 (test code = 0115610652) IMM GRAN x10^3 (test <0.03 0-0.06 code = 2812065389) LYMPH x10^3 (test code 1.29 10*3/uL 1.09-3.23 = 731-0) MONO x10^3 (test code 0.61 10*3/uL 0.36-1.02 = 742-7) EOS x10^3 (test code = 0.14 10*3/uL 0.06-0.53 711-2) BASO x10^3 (test code 0.03 10*3/uL 0.01-0.09 = 704-7) Lab Interpretation Abnormal (test code = 13800-6) [facility] CenterLactic Acid Whole [id number] 12:04:00 Test Item Value Reference Range Interpretation Comments LACTIC ACID (test code = 1.23 mmol/L 4690463165) [facility] CenterIR ABSCESS DRAIN [id number] 14:57:23 Successful abscessogram demonstrated unchanged position of [...] consentwas obtained. Prior to beginning the procedure, [place] Protocol was usedtoconfirm the patient's identity and planned procedure. Maximum sterilebarriers including cap, mask, momin nd hygiene, sterile gloves, sterile gown,large sterile drape and cutaneous antisepsis were used. Theskin overlying the existing drainage catheter in the right upperquadrant of the abdomen was sterilely prepped, draped and infiltrated with1 percent lidocaine. A field technical assistant image was documented prior to the injection [...] drainage catheter and with questionablefistulization to bowel. [facility], Radiant Results Inft User - 05/31/2020 [...] consentwas obtained. Prior to beginning the procedure, [place] Protocol was usedto confirm the patient's identity and planned procedure. Maximum sterilebarriers including cap, mask, hand hygiene, sterile gloves, sterile gown,large sterile drape and cutaneous antisepsis were used. The skin overlying the existing drainage catheter in the right upperquadrant of the abdomen was sterilely prepped, draped and infiltrated with1 percent lidocaine. A field technical assistant image was documented prior to the injection [...] this study and agree with theabove report. [facility] METABOLIC PANEL (NA, K, CL, CO2, GLUCOSE, BUN, CREATININE, CA)2020-05-31 08:13:00 Test Item Value Reference Range Interpretation Comments NA (test code = 135 mmol/L 135-145 2706805942) K (test code = 4.1 mmol/L 3.5-5 6201333255) CL (test code = 99 mmol/L 98-108 4885964775) CO2 TOTAL (test code = 32 mmol/L 23-31 H 1855218594) AGAP (test code = 2-16 6406816660) BUN (test code = 14 mg/dL 7-23 9381433009) GLUCOSE (test code = 89 mg/dL 70-110 3012375516) CREATININE (test code = 0.67 mg/dL 0.6-1.25 9477883860) CALCIUM (test code = 8.2 mg/dL 8.6-10.6 L 0912234918) eGFR Calculation mL/min/1.73m2 (Non-) (test code = 7423487073) eGFR Calculation mL/min/1.73m2 () (test code = 0351073818) GILBERTO (test code = GILBERTO) Association of [...] tests). Lab Interpretation Abnormal (test code = 73610-0) [facility] CenterMAGN[facility]IUM2020-10-08 08:13:00 Test Item Value Reference Range Interpretation Comments MAGNESIUM (test code = 2155093194) 1.8 mg/dL 1.7-2.4 Lab Interpretation (test code = Normal 61246-8) [facility] CenterPHOSPHORUS2020-10-08 08:13:00 Test Item Value Reference Range Interpretation Comments PHOSPHORUS (test code = 0691131216) 5.2 mg/dL 2.5-5 H Lab Interpretation (test code = Abnormal 97350-1) [facility] WITH [id number] 08:05:00 Test Item Value Reference Range Interpretation Comments WBC (test code = See_Comment L [Automated 3962-2) message] The sy stem which generated this [...] (test code = 57.9 fL 38.5-51.6 H 01935-5) RDW-CV (test code = 18.7 % 12.1-15.4 H 788-0) PLT (test code = See_Comment [Automated 777-3) message] The sy stem which generated this result transmitted reference range : 150 - 328 10*3/ ?L. The reference r meredith was not used to interpret this result as normal/abnormal . MPV (test code = 10.3 fL 9.8-13 70204-8) NRBC/100 WBC (test See_Comment [Automat ed code = 8515973929) message] The system which generated this result transmitted reference range : 0.0 - 10.0 /100 WBCs. The refer ence range was not u sed to interpret th is result as normal/abnormal . NRBC x10^3 (test code <0.01 See_Comment [Auto mated = 6928992957) message] The s ystem which generated this result transmitted reference range : 10*3/?L. The reference range was not used to interpret this result as normal/abnormal . GRAN MAT (NEUT) % 56.4 % (test code = 770-8) IMM GRAN % (test code 0.50 % = 2406181847) LYMPH % (test code = 26.2 % 736-9) MONO % (test code = 12.2 % 5905-5) EOS % (test code = 4.2 % 713-8) BASO % (test code = 0.5 % 706-2) GRAN MAT x10^3(ANC) 2.31 10*3/uL 1.99-6.95 (test code = 4608113627) IMM GRAN x10^3 (test <0.03 0-0.06 code = 9193650880) LYMPH x10^3 (test code 1.07 10*3/uL 1.09-3.23 L = 731-0) MONO x10^3 (test code 0.50 10*3/uL 0.36-1.02 = 742-7) EOS x10^3 (test code = 0.17 10*3/uL 0.06-0.53 711-2) BASO x10^3 (test code <0.03 0.01-0.09 = 704-7) Lab Interpretation Abnormal (test code = 32628-6) [facility] METABOLIC PANEL (NA, K, CL, CO2, GLUCOSE, BUN, CREATININE, CA)2020-05-30 09:04:00 Test Item Value Reference Range Interpretation Comments NA (test code = 138 mmol/L 135-145 1764606136) K (test code = 4.4 mmol/L 3.5-5 5508384336) CL (test code = 99 mmol/L 98-108 9448032094) CO2 TOTAL (test code = 33 mmol/L 23-31 H 9769496263) AGAP (test code = 2-16 4780659344) BUN (test code = 18 mg/dL 7-23 3332077065) GLUCOSE (test code = 86 mg/dL 70-110 4837953949) CREATININE (test code = 0.61 mg/dL 0.6-1.25 4356837672) CALCIUM (test code = 8.1 mg/dL 8.6-10.6 L 2456713391) eGFR Calculation mL/min/1.73m2 (Non-) (test code = 5777440102) eGFR Calculation mL/min/1.73m2 () (test code = 1831085350) GILBERTO (test code = GILBERTO) Association of [...] tests). Lab Interpretation Abnormal (test code = 15695-5) [facility] Test Item Value Reference Range Interpretation Comments MAGNESIUM (test code = 7665745679) 2.0 mg/dL 1.7-2.4 Lab Interpretation (test code = Normal 36485-7) [facility] 09:04:00 Test Item Value Reference Range Interpretation Comments PHOSPHORUS (test code = 5421092665) 4.6 mg/dL 2.5-5 Lab Interpretation (test code = Normal 11168-0) [facility] (NA, K, CL, CO2, GLUCOSE, BUN, CREATININE, CA)2020-05-29 07:31:00 Test Item Value Reference Range Interpretation Comments NA (test code = 135 mmol/L 135-145 1314622374) K (test code = 4.0 mmol/L 3.5-5 5693152918) CL (test code = 100 mmol/L 98-108 6155944006) CO2 TOTAL (test code = 32 mmol/L 23-31 H 2966233024) AGAP (test code = 2-16 9849698294) BUN (test code = 19 mg/dL 7-23 4769713454) GLUCOSE (test code = 86 mg/dL 70-110 5868164557) CREATININE (test code = 0.68 mg/dL 0.6-1.25 3971248484) CALCIUM (test code = 8.0 mg/dL 8.6-10.6 L 5960552603) eGFR Calculation mL/min/1.73m2 (Non-) (test code = 9231732657) eGFR Calculation mL/min/1.73m2 () (test code = 4332238127) GILBERTO (test code = GILBERTO) Association of [...] tests). Lab Interpretation Abnormal (test code = 51225-1) [facility] 07:31:00 Test Item Value Reference Range Interpretation Comments MAGNESIUM (test code = 2773923888) 1.6 mg/dL 1.7-2.4 L Lab Interpretation (test code = Abnormal 70638-2) [facility] 07:31:00 Test Item Value Reference Range Interpretation Comments PHOSPHORUS (test code = 2177156272) 3.5 mg/dL 2.5-5 Lab Interpretation (test code = Normal 54479-1) [facility](AEROBIC/ANAEROBIC) 2020-05-28 12:35:00 Test Item Value Reference Range Interpretation Comments Aspirate or Abscess No aerobic/anaerobic Culture (test code = organisms isolated 24716-1) Gram stain (test code Occasional (Rare) = 664-3) Mononuclear cells [facility] (NA, K, CL, CO2, GLUCOSE, BUN, CREATININE, CA)2020-05-28 09:36:00 Test Item Value Reference Range Interpretation Comments NA (test code = 136 mmol/L 135-145 3345289921) K (test code = 4.3 mmol/L 3.5-5 7778131600) CL (test code = 102 mmol/L 98-108 4401247315) CO2 TOTAL (test code = 31 mmol/L 23-31 7796993787) AGAP (test code = 2-16 1266847955) BUN (test code = 25 mg/dL 7-23 H 4946525371) GLUCOSE (test code = 87 mg/dL 70-110 5858701748) CREATININE (test code = 0.65 mg/dL 0.6-1.25 0514000690) CALCIUM (test code = 8.2 mg/dL 8.6-10.6 L 0357153864) eGFR Calculation mL/min/1.73m2 (Non-) (test code = 9771034907) eGFR Calculation mL/min/1.73m2 () (test code = 3115264618) GILBERTO (test code = GILBERTO) Association of [...] tests). Lab Interpretation Abnormal (test code = 53938-2) [facility]05 09:36:00 Test Item Value Reference Range Interpretation Comments MAGNESIUM (test code = 6477294867) 1.6 mg/dL 1.7-2.4 L Lab Interpretation (test code = Abnormal 91911-3) [facility]-05 09:36:00 Test Item Value Reference Range Interpretation Comments PHOSPHORUS (test code = 1176212571) 2.6 mg/dL 2.5-5 Lab Interpretation (test code = Normal 56399-8) [facility] (NA, K, CL, CO2, GLUCOSE, BUN, CREATININE, CA)2020-05-27 10:13:00 Test Item Value Reference Range Interpretation Comments NA (test code = 135 mmol/L 135-145 1599900009) K (test code = 3.9 mmol/L 3.5-5 4356649419) CL (test code = 103 mmol/L 98-108 3982132954) CO2 TOTAL (test code = 28 mmol/L 23-31 0118017723) AGAP (test code = 2-16 4244331231) BUN (test code = 20 mg/dL 7-23 4047394920) GLUCOSE (test code = 95 mg/dL 70-110 6216642862) CREATININE (test code = 0.67 mg/dL 0.6-1.25 3089047349) CALCIUM (test code = 8.2 mg/dL 8.6-10.6 L 4010033100) eGFR Calculation mL/min/1.73m2 (Non-) (test code = 9334453316) eGFR Calculation mL/min/1.73m2 () (test code = 1034888070) GILBERTO (test code = GILBERTO) Association of [...] tests). Lab Interpretation Abnormal (test code = 94139-1) [facility]2020-10-04 10:13:00 Test Item Value Reference Range Interpretation Comments MAGNESIUM (test code = 9967714205) 1.5 mg/dL 1.7-2.4 L Lab Interpretation (test code = Abnormal 17586-3) [facility]2020-10-04 10:13:00 Test Item Value Reference Range Interpretation Comments PHOSPHORUS (test code = 8611672771) 3.4 mg/dL 2.5-5 Lab Interpretation (test code = Normal 94226-8) [facility] CHANGE OF ABSCESS [id number] 17:06:27 Successful removal of the left upper quadrant drainage catheter. Replacement of the right upper quadrant catheter into the most superiorsegment of the collection with a new 10 Chadian pigtail catheter.PLAN: This tube should be flushed with 10 of saline twice a day. ?We willcontinue to monitor the output of the catheter while the patient isin-house. If the patient is discharged prior to catheter removal, follow-upwith VIR is recommended in 7-10 ?days. This can be arranged by [id number]. Preliminary Report Dictated by Resident: Johnny Tilley [...] from those actually performing theprocedure. Please see [facility] for sedation time. RADIATION DOSE: 33.0 mGy. TECHNIQUE: The risks, benefits and alternativeswere discussed and informed consentwas obtained. Prior to beginning the procedure, [place] Protocol was usedto confirm the patient's identity [...] of the pigtailcatheters within the respective collections. [facility], Radiant Results Inft User - 05/26/2020 12:07 PM CDTEXAMINATION: 1. PERCUTANEOUS PERIHEPATIC DRAINAGE REPLACEMENT2. LEFT UPPER QUADRANT DRAINAGE REMOVAL.HISTORY: 50 years-old; Male; abscess ATTENDEES: Attending radiologist: Nixon Perez; Resident: Dr. Johnny Tilley;Contributing VIR Fellow: Dr. Vance Stafford.SEDATION: Moderate sedation was administered under the attendingphysician's direction and continuous monitoring by a trained nursespecialist who was independent from those actually performing theprocedure. Please see [facility] for sedation time.RADIATION DOSE: 33.0 mGy.TECHNIQUE: The risks, benefits andalternatives were discussed and informed consentwas obtained. Prior to beginning the procedure, [place]hel Protocol was usedto confirm the patient's identity [...] of the collection with a new 10 Chadian pigtail catheter.PLAN: This tube should be flushed with 10 of saline twice a day. We willcontinue to monitor the output of the catheter while the patient isin-house. If the patient is discharged prior to catheter removal, follow-upwith VIR is recommended in 7-10 days. This can be arranged by [id number].Preliminary Report Dictated by Resident: Johnny Benitez, as teaching physician, was present during the entire procedure and/orduring the botello components.Nixon Damon MD., have reviewed this study and agree with theabove report.[facility] ABSCESS BULLA OR CYST BY [id number] 17:06:16 Successful ultrasound-guided aspiration of intrahepatic small [...] consentwas obtained. Prior to beginning the procedure, Bethel Protocol was usedto confirm the patient's identity and planned procedure. Maximum sterilebarriers including cap, mask, hand hygiene, sterile gloves, sterile gown,large sterile drape and cutaneous antisepsis were used. The skin overlying the right mid abdomen was sterilely prepped, draped andinfiltrated with 1percent lidocaine. The targeted infrahepatic small collection was then accessed with [id number] micropuncture needle using imaging guidance which includedultrasound. The fluid collection was carefully aspirated. A steriledressing was applied. A sample of the fluid was sent for culture ESTIMATED BLOOD LOSS: Minimal. DISCHARGED TO: Recovery and then to inpatient unit. CONDITION: Stable. FINDINGS: Ultrasound imaging of the infrahepatic area demonstrated a very smallanechoic fluid collection. 1 mL yellowviscous-appearing fluid wasaspirated. [facility], Radiant Results Inft User - 05/26/2020 12:07 PM CDTEXAMINATION: IMAGE GUIDED PERCUTANEOUS INFRAHEPATIC FLUID COLLECTIONASPIRATIONHISTORY: 50 years-old; Male;peritoneal abscess.ATTENDEES: Attending radiologist: Nixon Perez; Resident: Dr. Johnny Tilley;Contributing VIR Fellow: Dr. Vance Stafford.SEDATION: No moderate sedation was utilized for this procedure.TECHNIQUE: The risks, benefits and alternatives were discussed and informed consentwas obtained. Prior to beginning the procedure, [place] Protocol was usedto confirm the patient's identity and planned procedure. Maximum sterilebarriers including cap, mask, hand hygiene, sterile gloves, sterile gown,large sterile drape and cutaneous antisepsis were used. The skin overlying the right mid abdomen was sterilely prepped, draped andinfiltrated with 1 percent lidocaine. The targeted infrahepatic small collection was then accessed with [id number] micropuncture needle using imaging guidance which includ [...] reviewed this study and agree with theabove report.[facility] METABOLIC PANEL (NA, K, CL, CO2, GLUCOSE, BUN, CREATININE, CA) 2020-05-26 10:13:00 Test Item Value Reference Range Interpretation Comments NA (test code = 135 mmol/L 135-145 4219704321) K (test code = 4.4 mmol/L 3.5-5 5977051960) CL (test code = 107 mmol/L 98-108 9853732449) CO2 TOTAL (test code = 23 mmol/L 23-31 9778010095) AGAP (test code = 2-16 8197740590) BUN (test code = 18 mg/dL 7-23 3488473815) GLUCOSE (test code = 101 mg/dL 70-110 6952560080) CREATININE (test code = 0.61 mg/dL 0.6-1.25 0474282058) CALCIUM (test code = 8.1 mg/dL 8.6-10.6 L 8700865961) eGFR Calculation mL/min/1.73m2 (Non-) (test code = 0647214355) eGFR Calculation mL/min/1.73m2 () (test code = 9976487186) GILBERTO (test code = GILBERTO) Association of [...] tests). Lab Interpretation Abnormal (test code = 34819-5) [facility] 10:13:00 Test Item Value Reference Range Interpretation Comments MAGNESIUM (test code = 7497515834) 1.7 mg/dL 1.7-2.4 Lab Interpretation (test code = Normal 95613-2) [facility]2020-10-03 10:13:00 Test Item Value Reference Range Interpretation Comments PHOSPHORUS (test code = 8221866163) 3.4 mg/dL 2.5-5 Lab Interpretation (test code = Normal 91027-5) [facility]XR [id number] 23:20:33 Positioning dictated draining the right upper [...] are identified. No acutebony abnormality is present. [facility], Radiant Results Inft User - 05/25/2020 [...] reviewed this study and agree with theabove report.[facility]BAPSY[facility]AT[facility] METABOLIC PANEL (NA, K, CL, CO2, GLUCOSE, BUN, CREATININE, CA)2020-05-25 22:49:00 Test Item Value Reference Range Interpretation Comments NA (test code = 136 mmol/L 135-145 0999940850) K (test code = 4.5 mmol/L 3.5-5 1161952963) CL (test code = 105 mmol/L 98-108 4562236265) CO2 TOTAL (test code = 22 mmol/L 23-31 L 5778879955) AGAP (test code = 2-16 2378489993) BUN (test code = 24 mg/dL 7-23 H 2060612363) GLUCOSE (test code = 101 mg/dL 70-110 5196600670) CREATININE (test code = 0.74 mg/dL 0.6-1.25 0621793959) CALCIUM (test code = 8.6 mg/dL 8.6-10.6 7644886933) eGFR Calculation mL/min/1.73m2 (Non-) (test code = 3887951122) eGFR Calculation mL/min/1.73m2 () (test code = 5525472903) GILBERTO (test code = GILBERTO) Association of [...] tests). Lab Interpretation Abnormal (test code = 02279-0) [facility]2020-10-02 22:11:00 Test Item Value Reference Range Interpretation Comments MAGNESIUM (test code = 2597125206) 2.0 mg/dL 1.7-2.4 Lab Interpretation (test code = Normal 47484-6) [facility]2020-10-02 22:11:00 Test Item Value Reference Range Interpretation Comments PHOSPHORUS (test code = 2500394925) 3.1 mg/dL 2.5-5 Lab Interpretation (test code = Normal 00626-5) [facility] WITH [id number] 21:51:00 Test Item Value Reference Range Interpretation [...] (test code = 53.1 fL 38.5-51.6 H 25403-2) RDW-CV (test code = 17.9 % 12.1-15.4 H 788-0) PLT (test code = See_Comment [Automated 777-3) message] The sy stem which generated this result transmitted reference range : 150 - 328 10*3/ ?L. The reference r meredith was not used to interpret this result as normal/abnormal . MPV (test code = 9.1 fL 9.8-13 L 95562-2) NRBC/100 WBC (test See_Comment [Automat ed code = 1065649320) message] The system which generated this result transmitted reference range : 0.0 - 10.0 /100 WBCs. The refer ence range was not u sed to interpret th is result as normal/abnormal . NRBC x10^3 (test code <0.01 See_Comment [Auto mated = 6254935456) message] The s ystem which generated this result transmitted reference range : 10*3/?L. The reference range was not used to interpret this result as normal/abnormal . GRAN MAT (NEUT) % 73.4 % (test code = 770-8) IMM GRAN % (test code 0.50 % = 1334172184) LYMPH % (test code = 17.9 % 736-9) MONO % (test code = 5.2 % 5905-5) EOS % (test code = 2.5 % 713-8) BASO % (test code = 0.5 % 706-2) GRAN MAT x10^3(ANC) 4.05 10*3/uL 1.99-6.95 (test code = 6452149802) IMM GRAN x10^3 (test 0.03 10*3/uL 0-0.06 code = 4288319744) LYMPH x10^3 (test code 0.99 10*3/uL 1.09-3.23 L = 731-0) MONO x10^3 (test code 0.29 10*3/uL 0.36-1.02 L = 742-7) EOS x10^3 (test code = 0.14 10*3/uL 0.06-0.53 711-2) BASO x10^3 (test code 0.03 10*3/uL 0.01-0.09 = 704-7) Lab Interpretation Abnormal (test code = 88968-7) [facility] (NA, K, CL, CO2, GLUCOSE, BUN, CREATININE, CA)2020-05-25 09:24:00 Test Item Value Reference Range Interpretation Comments NA (test code = 135 mmol/L 135-145 3765915292) K (test code = 5.3 mmol/L 3.5-5 H Slight 3382338578) hemolysis CL (test code = 104 mmol/L 98-108 4984386370) CO2 TOTAL (test code 24 mmol/L 23-31 = 1253029000) AGAP (test code = 2-16 1674728964) BUN (test code = 22 mg/dL 7-23 Slight 2764093678) hemolysis GLUCOSE (test code = 96 mg/dL 70-110 7080379704) CREATININE (test code 0.73 mg/dL 0.6-1.25 = 1610616955) CALCIUM (test code = 8.2 mg/dL 8.6-10.6 L 5940639996) eGFR Calculation mL/min/1.73m2 (Non-) (test code = 6325565401) eGFR Calculation mL/min/1.73m2 () (test code = 2775249832) GILBERTO (test code = GILBERTO) Association of [...] tests). Lab Interpretation Abnormal (test code = 74389-3) [facility]-02 09:24:00 Test Item Value Reference Range Interpretation Comments MAGNESIUM (test code = 9949088790) 2.3 mg/dL 1.7-2.4 Lab Interpretation (test code = Normal 13739-7) [facility]2020-10-02 09:24:00 Test Item Value Reference Range Interpretation Comments PHOSPHORUS (test code = 8051863337) 3.4 mg/dL 2.5-5 Lab Interpretation (test code = Normal 49157-7) [facility]OL[facility] PANEL (NA, K, CL, CO2, GLUCOSE, BUN, CREATININE, CA)2020-05-24 21:00:00 Test Item Value Reference Range Interpretation Comments NA (test code = 135 mmol/L 135-145 0044956917) K (test code = 4.3 mmol/L 3.5-5 4585346222) CL (test code = 102 mmol/L 98-108 8778920483) CO2 TOTAL (test code = 25 mmol/L 23-31 0615524717) AGAP (test code = 2-16 3629391440) BUN (test code = 20 mg/dL 7-23 0950246864) GLUCOSE (test code = 102 mg/dL 70-110 3213443823) CREATININE (test code 0.97 mg/dL 0.6-1.25 = 1313624802) CALCIUM (test code = 9.0 mg/dL 8.6-10.6 3426643591) eGFR Calculation mL/min/1.73m2 (Non-) (test code = 5137140940) eGFR Calculation mL/min/1.73m2 () (test code = 7558190328) GILBERTO (test code = GILBERTO) Association of [...] or urine or abnormalities in imaging tests). [facility] 21:00:00 Test Item Value Reference Range Interpretation Comments MAGNESIUM (test code = 8090187774) 1.5 mg/dL 1.7-2.4 L Lab Interpretation (test code = Abnormal 93737-9) [facility]2020-10-01 20:58:00 Test Item Value Reference Range Interpretation Comments PHOSPHORUS (test code = 4125791507) 3.3 mg/dL 2.5-5 Lab Interpretation (test code = Normal 53746-8) [facility] with [id number] 11:31:00 Test Item Value Reference Range Interpretation Comments WBC (test code = See_Comment [Automated 5847-2) message] The sy stem which generated this result transmitted reference range : 4.20 - 10.70 10*3/?L. The reference range was not used to interpret this result as normal/abnormal . RBC (test code = See_Comment L [Automated 525-8) message] The sy stem which generated this [...] (test code = 51.9 fL 38.5-51.6 H 72968-3) RDW-CV (test code = 17.6 % 12.1-15.4 H 788-0) PLT (test code = See_Comment H [Automated 777-3) message] The sy stem which generated this result transmitted reference range : 150 - 328 10*3/ ?L. The reference r meredith was not used to interpret this result as normal/abnormal . MPV (test code = 9.0 fL 9.8-13 L 13894-5) NRBC/100 WBC (test See_Comment [Automat ed code = 8617744664) message] The system which generated this result transmitted reference range : 0.0 - 10.0 /100 WBCs. The refer ence range was not u sed to interpret th is result as normal/abnormal . NRBC x10^3 (test code <0.01 See_Comment [Auto mated = 7177335822) message] The s ystem which generated this result transmitted reference range : 10*3/?L. The reference range was not used to interpret this result as normal/abnormal . GRAN MAT (NEUT) % 66.0 % (test code = 770-8) IMM GRAN % (test code 0.20 % = 0027760786) LYMPH % (test code = 20.3 % 736-9) MONO % (test code = 10.4 % 5905-5) EOS % (test code = 2.6 % 713-8) BASO % (test code = 0.5 % 706-2) GRAN MAT x10^3(ANC) 4.33 10*3/uL 1.99-6.95 (test code = 4323295964) IMM GRAN x10^3 (test <0.03 0-0.06 code = 5495424705) LYMPH x10^3 (test code 1.33 10*3/uL 1.09-3.23 = 731-0) MONO x10^3 (test code 0.68 10*3/uL 0.36-1.02 = 742-7) EOS x10^3 (test code = 0.17 10*3/uL 0.06-0.53 711-2) BASO x10^3 (test code 0.03 10*3/uL 0.01-0.09 = 704-7) Lab Interpretation Abnormal (test code = 60335-2) [facility]CT [facility] W [id number] 17:39:05 Since 05/19/2020 slight increase in size [...] perihepatic are unchanged with drains insitu as above.[facility]Bat[facility] (NA, K, CL, CO2, Glucose, BUN, Creatinine, CA)2020-05-23 10:25:00 Test Item Value Reference Range Interpretation Comments NA (test code = 135 mmol/L 135-145 4798337014) K (test code = 3.7 mmol/L 3.5-5 7816395746) CL (test code = 105 mmol/L 98-108 9330558043) CO2 TOTAL (test code = 24 mmol/L 23-31 0400530864) AGAP (test code = 2-16 5612915400) BUN (test code = 19 mg/dL 7-23 8580550990) GLUCOSE (test code = 117 mg/dL 70-110 H 1554010150) CREATININE (test code = 0.74 mg/dL 0.6-1.25 3973270960) CALCIUM (test code = 7.3 mg/dL 8.6-10.6 L 5540162803) eGFR Calculation mL/min/1.73m2 (Non-) (test code = 4245942170) eGFR Calculation mL/min/1.73m2 () (test code = 7409615305) GILBERTO (test code = GILBERTO) Association of [...] tests). Lab Interpretation Abnormal (test code = 42792-1) [facility] COVID-19 [id number] 07:40:00 Test Item Value Reference Range Interpretation Comments SARS-CoV-2 Rapid ID NOW Not Detected Not Detected (test code = 59946-4) GILBERTO (test code = GILBERTO) ID NOW COVID-19 Assay is an isothermal nucleic acid amplification test intended for the qualitative detection of nucleic acid from SARS-CoV-2 viral RNA in nasopharyngeal (PARENT COACH) specimens. It is used under Emergency Use [...] indicated. Lab Interpretation Normal (test code = 11310-3) [facility] CenterUrinalysis2020-[facility]-29 22:41:00 Test Item Value Reference Range Interpretation Comments APPEARANCE (test code = Hazy Clear A 6638454091) COLOR (test code = Yellow Yellow 6684222194) PH (test code = 4.8-8.0 2052640672) SP GRAVITY (test code = 1.003-1.030 2950502751) GLU U QUAL (test code = Normal Normal 7193015235) BLOOD (test code = Negative Negative 0319389228) KETONES (test code = Negative Negative 7423488383) PROTEIN (test code = 30 mg/dL Negative A 2887-8) UROBILIN (test code = Normal Normal 4292318591) BILIRUBIN (test code = Negative Negative 9629761047) NITRITE (test code = Negative Negative 5045232927) LEUK ROGER (test code = Negative Negative 3906968249) RBC/HPF (test code = See_Comment H [Autom ated message] 9389114449) The system [employer] generated this result transmitted ref erence range: 0 - 3 HP F. The reference range was not used to int erpret this result as normal/abnormal . WBC/HPF (test code = See_Comment H [Autom ated message] 1791780818) The system [employer] generated this result transmitted ref erence range: 0 - 5 HP F. The reference range was not used to int erpret this result as normal/abnormal . BACTERIA (test code = Negative Negative 4566465216) MUCOUS (test code = Moderate Negative LPF A 7230838178) SQ EPITH (test code = See_Comment [Auto mated message] 6883651591) The system [employer] generated this result transmitted ref erence range: <=2 HPF. The reference range was not used to int erpret this result as normal/abnormal . CA OXALATE (test code = See_Comment H [Au tomated message] 6755984457) The system [employer] generated this result transmitted ref erence range: <=1 HPF. The reference range was not used to int erpret this result as normal/abnormal . HYAL CAST (test code = See_Comment H [Aut omated message] 8506392375) The system [employer] generated this result transmitted ref erence range: <=2 LPF. The reference range was not used to int erpret this result as normal/abnormal . Lab Interpretation (test Abnormal code = 02048-3) [facility] Metabolic Panel (NA, K, CL, CO2, GLUCOSE, BUN, CREATININE, CA)2020-05-22 21:46:00 Test Item Value Reference Range Interpretation Comments NA (test code = 134 mmol/L 135-145 L 4226551347) K (test code = 5.0 mmol/L 3.5-5 8717674289) CL (test code = 103 mmol/L 98-108 1012433150) CO2 TOTAL (test code = 25 mmol/L 23-31 7824816403) AGAP (test code = 2-16 8260687399) BUN (test code = 24 mg/dL 7-23 H 5845326727) GLUCOSE (test code = 102 mg/dL 70-110 6052484056) CREATININE (test code = 0.87 mg/dL 0.6-1.25 3878340196) CALCIUM (test code = 9.2 mg/dL 8.6-10.6 8960289701) eGFR Calculation mL/min/1.73m2 (Non-) (test code = 6799843038) eGFR Calculation mL/min/1.73m2 () (test code = 0459583642) GILBERTO (test code = GILBERTO) Association of [...] tests). Lab Interpretation Abnormal (test code = 75981-8) [facility] (ALB, T.PRO, BILI T, BU/BC, ALT, AST, ALK PHOS)2020-05-22 21:46:00 Test Item Value Reference Range Interpretation Comments TOTAL BILI (test code = 4573411177) 0.4 mg/dL 0.1-1.1 BILI UNCON (test code = 1504204243) 0.2 mg/dL 0.1-1.1 BILI CONJ (test code = 1458521059) 0.0 mg/dL 0-0.3 T PROTEIN (test code = 4133602214) 6.5 g/dL 6.3-8.2 ALBUMIN (test code = 9844633895) 3.6 g/dL 3.5-5 ALK PHOS (test code = 9816628791) 96 U/L 34-122 ALTv (test code = 1742-6) 22 U/L 5-50 AST(SGOT) (test code = [id number]) 28 U/L 13-40 Lab Interpretation (test code = Normal 65717-5) [facility] Eijww1261-09-99 21:46:00 Test Item Value Reference Range Interpretation Comments LIPASE (test code = 2093425116) 95 U/L 0-220 Lab Interpretation (test code = Normal 58752-7) [facility]eraPTT2020-09-29 21:46:00 Test Item Value Reference Range Interpretation Comments APTT Patient (test code = See_Comment [ Automated message] 3173-2) The system whic h generated this result transmitted ref erence range: 26 - 36 Seconds. The re ference range was not u sed to interpret this result as normal/abnor mal. Lab Interpretation (test Normal code = 74512-7) [facility] CenterProthrombin Time (PT) / [id number] 21:46:00 Test Item Value Reference Range Interpretation [...] tions. Lab Interpretation (test Abnormal code = 68099-9) [facility] CenterCB with Zbcygxshnbpw2025-32-27 21:41:00 Test Item Value Reference Range Interpretation [...] (test code = 53.0 fL 38.5-51.6 H 08405-2) RDW-CV (test code = 17.6 % 12.1-15.4 H 788-0) PLT (test code = See_Comment H [Automated 777-3) message] The sy stem which generated this result transmitted reference range : 150 - 328 10*3/ ?L. The reference r meredith was not used to interpret this result as normal/abnormal . MPV (test code = 9.1 fL 9.8-13 L 86499-2) NRBC/100 WBC (test See_Comment [Automat ed code = 5873278706) message] The system which generated this result transmitted reference range : 0.0 - 10.0 /100 WBCs. The refer ence range was not u sed to interpret th is result as normal/abnormal . NRBC x10^3 (test code <0.01 See_Comment [Auto mated = 0015082471) message] The s ystem which generated this result transmitted reference range : 10*3/?L. The reference range was not used to interpret this result as normal/abnormal . GRAN MAT (NEUT) % 77.4 % (test code = 770-8) IMM GRAN % (test code 0.50 % = 4543255366) LYMPH % (test code = 15.8 % 736-9) MONO % (test code = 4.9 % 5905-5) EOS % (test code = 0.8 % 713-8) BASO % (test code = 0.6 % 706-2) GRAN MAT x10^3(ANC) 5.04 10*3/uL 1.99-6.95 (test code = 6332589430) IMM GRAN x10^3 (test 0.03 10*3/uL 0-0.06 code = 7009295036) LYMPH x10^3 (test code 1.03 10*3/uL 1.09-3.23 L = 731-0) MONO x10^3 (test code 0.32 10*3/uL 0.36-1.02 L = 742-7) EOS x10^3 (test code = 0.05 10*3/uL 0.06-0.53 L 711-2) BASO x10^3 (test code 0.04 10*3/uL 0.01-0.09 = 704-7) Lab Interpretation Abnormal (test code = 08973-3) [facility] 1 [id number] 21:19:32CHEST ONE VIEW HISTORY: ?Weakness TECHNIQUE: ?AP [...] the left costophrenic angle suggests a leftpleural effusion.[facility] CenterCOVID-19 (ID NOW RAPID TESTING) 2020-05-20 10:09:00 Test Item Value Reference Range Interpretation Comments SARS-CoV-2 Rapid ID NOW Not Detected Not Detected (test code = 50317-8) GILBERTO (test code = GILBERTO) ID NOW COVID-19 Assay is an isothermal nucleic acid amplification test intended for the qualitative detection of nucleic acid from SARS-CoV-2 viral RNA in nasopharyngeal (PARENT COACH) specimens. It is used under Emergency Use [...] indicated. Lab Interpretation Normal (test code = 04184-9) [facility] CenterURINALYSIS2020-09-27 10:07:00 Test Item Value Reference Range Interpretation Comments APPEARANCE (test code = Clear Clear 8714159259) COLOR (test code = Yellow Yellow 7811245833) PH (test code = 4.8-8.0 7894468991) SP GRAVITY (test code = 1.003-1.030 H 6799163202) GLU U QUAL (test code = Normal Normal 2762744422) BLOOD (test code = Negative Negative 0498225269) KETONES (test code = Negative Negative 5944815553) PROTEIN (test code = Negative Negative 2887-8) UROBILIN (test code = Normal Normal 3728157362) BILIRUBIN (test code = Negative Negative 0562232693) NITRITE (test code = Negative Negative 9605599890) LEUK ROGER (test code = Negative Negative 0829015453) RBC/HPF (test code = See_Comment [Autom ated message] 5158355640) The system [employer] generated this result transmitted ref erence range: 0 - 3 HP F. The reference range was not used to int erpret this result as normal/abnormal . WBC/HPF (test code = See_Comment [Autom ated message] 2830286685) The system [employer] generated this result transmitted ref erence range: 0 - 5 HP F. The reference range was not used to int erpret this result as normal/abnormal . BACTERIA (test code = Negative Negative 9666723507) MUCOUS (test code = Slight Negative LPF A 9773291783) SQ EPITH (test code = See_Comment [Auto mated message] 8689604381) The system [employer] generated this result transmitted ref erence range: <=2 HPF. The reference range was not used to int erpret this result as normal/abnormal . HYAL CAST (test code = See_Comment H [Aut omated message] 4585581540) The system [employer] generated this result transmitted ref erence range: <=2 LPF. The reference range was not used to int erpret this result as normal/abnormal . Lab Interpretation (test Abnormal code = 54802-4) [facility] CenterCT ABDOMEN PELVIS W TACFLWZI1507-38-04 04:28:40Impression: 1. Multiple rim-enhancing fluid and gas [...] effusions, possiblyloculated on the left. RL: 2824AFC: [id number] End of Report Exam: CT Abdomen and [...] pleural effusions, possiblyloculated on the left.RL: 2824AFC: 43209Msv of Report [facility] CenterPITO [id number] 03:44:00 Test Item Value Reference Range Interpretation Comments TROPONIN I (test 0.001 ng/mL See_Comment [Automated code = 8575781983) message] The system which generated this result [...] ? Lab Interpretation Normal (test code = 10311-5) [facility] CenterCOMP. METABOLIC PANEL (69120)2020-05-20 03:33:00 Test Item Value Reference Range Interpretation Comments NA (test code = 138 mmol/L 135-145 3728691184) K (test code = 5.3 mmol/L 3.5-5 H 2116438235) CL (test code = 100 mmol/L 98-108 1598768167) CO2 TOTAL (test code = 28 mmol/L 23-31 5979822842) AGAP (test code = 2-16 3874023324) BUN (test code = 27 mg/dL 7-23 H 0628458524) GLUCOSE (test code = 90 mg/dL 70-110 5416400353) CREATININE (test code = 1.25 mg/dL 0.6-1.25 7116545760) TOTAL BILI (test code = 0.2 mg/dL 0.1-1.2 0869723612) CALCIUM (test code = 9.9 mg/dL 8.6-10.6 4344438496) T PROTEIN (test code = 6.8 g/dL 6.3-8.2 0085076043) ALBUMIN (test code = 3.7 g/dL 3.5-5 0217206116) ALK PHOS (test code = 122 U/L 34-122 6835144783) ALTv (test code = 26 U/L 5-50 1742-6) AST(SGOT) (test code = 24 U/L 13-40 9802679907) eGFR Calculation mL/min/1.73m2 (Non-) (test code = 9293732176) eGFR Calculation mL/min/1.73m2 () (test code = 1250878241) GILBERTO (test code = GILBERTO) Association of [...] tests). Lab Interpretation Abnormal (test code = 77717-9) [facility] CenterLIPASE2020-09-27 03:33:00 Test Item Value Reference Range Interpretation Comments LIPASE (test code = 8742118806) 223 U/L 0-220 H Lab Interpretation (test code = Abnormal 17577-3) [facility] CenterMAGNESIUM2020-09-27 03:33:00 Test Item Value Reference Range Interpretation Comments MAGNESIUM (test code = 8573244913) 1.7 mg/dL 1.7-2.4 Lab Interpretation (test code = Normal 01094-7) [facility] WITH [id number] 03:17:00 Test Item Value Reference Range Interpretation [...] RDW-SD (test code = 49.9 fL 38.5-51.6 88376-5) RDW-CV (test code = 17.2 % 12.1-15.4 H 788-0) PLT (test code = See_Comment H [Automated 777-3) message] The sy stem which generated this result transmitted reference range : 150 - 328 10*3/ ?L. The reference r meredith was not used to interpret this result as normal/abnormal . MPV (test code = 9.3 fL 9.8-13 L 70869-9) NRBC/100 WBC (test See_Comment [Automat ed code = 6302052227) message] The system which generated this result transmitted reference range : 0.0 - 10.0 /100 WBCs. The refer ence range was not u sed to interpret th is result as normal/abnormal . NRBC x10^3 (test code <0.01 See_Comment [Auto mated = 3502414810) message] The s ystem which generated this result transmitted reference range : 10*3/?L. The reference range was not used to interpret this result as normal/abnormal . GRAN MAT (NEUT) % 78.5 % (test code = 770-8) IMM GRAN % (test code 0.50 % = 4872501963) LYMPH % (test code = 11.6 % 736-9) MONO % (test code = 8.4 % 5905-5) EOS % (test code = 0.6 % 713-8) BASO % (test code = 0.4 % 706-2) GRAN MAT x10^3(ANC) 6.16 10*3/uL 1.99-6.95 (test code = 2761340774) IMM GRAN x10^3 (test 0.04 10*3/uL 0-0.06 code = 9472289942) LYMPH x10^3 (test code 0.91 10*3/uL 1.09-3.23 L = 731-0) MONO x10^3 (test code 0.66 10*3/uL 0.36-1.02 = 742-7) EOS x10^3 (test code = 0.05 10*3/uL 0.06-0.53 L 711-2) BASO x10^3 (test code 0.03 10*3/uL 0.01-0.09 = 704-7) Lab Interpretation Abnormal (test code = 25872-9) [facility] CenterBODY FLUID CULTURE(AEROBIC/ANAEROBIC) 2020-05-10 15:19:00 Test Item Value Reference Range Interpretation Comments BODY FLUID CULT 2+ Clostridioides (test code = (Clostridium) difficile 611-4) Gram stain (test Few PMNs or Mononuclear code = 664-3) cells observed [facility] CenterBasi Metabolic Panel (NA, K, CL, CO2, GLUCOSE, BUN, CREATININE, CA)2020-05-10 10:27:00 Test Item Value Reference Range Interpretation Comments NA (test code = 132 mmol/L 135-145 L 4344278182) K (test code = 4.0 mmol/L 3.5-5 2328789923) CL (test code = 97 mmol/L 98-108 L 1605020453) CO2 TOTAL (test code = 28 mmol/L 23-31 7534033358) AGAP (test code = 2-16 1647339078) BUN (test code = 12 mg/dL 7-23 0805148990) GLUCOSE (test code = 128 mg/dL 70-110 H 3519097096) CREATININE (test code = 0.63 mg/dL 0.6-1.25 7102288973) CALCIUM (test code = 8.7 mg/dL 8.6-10.6 2218124982) eGFR Calculation mL/min/1.73m2 (Non-) (test code = 6958551707) eGFR Calculation mL/min/1.73m2 () (test code = 5037489553) GILBERTO (test code = GILBERTO) Association of [...] tests). Lab Interpretation Abnormal (test code = 68508-7) [facility] CenterMagnesium Neqbu8077-39-41 10:27:00 Test Item Value Reference Range Interpretation Comments MAGNESIUM (test code = 6308993248) 1.7 mg/dL 1.7-2.4 Lab Interpretation (test code = Normal 22585-7) [facility] CenterPhosphorus Vnnlg6514-68-34 10:27:00 Test Item Value Reference Range Interpretation Comments PHOSPHORUS (test code = 8718738577) 3.4 mg/dL 2.5-5 Lab Interpretation (test code = Normal 81646-7) [facility] CenterCBC with Quvmpexwotyd6286-04-81 10:03:00 Test Item Value Reference Range Interpretation [...] RDW-SD (test code = 47.3 fL 38.5-51.6 27713-5) RDW-CV (test code = 15.7 % 12.1-15.4 H 788-0) PLT (test code = See_Comment H [Automated 777-3) message] The sy stem which generated this result transmitted reference range : 150 - 328 10*3/ ?L. The reference r meredith was not used to interpret this result as normal/abnormal . MPV (test code = 8.9 fL 9.8-13 L 55885-9) NRBC/100 WBC (test See_Comment [Automat ed code = 9205685767) message] The system which generated this result transmitted reference range : 0.0 - 10.0 /100 WBCs. The refer ence range was not u sed to interpret th is result as normal/abnormal . NRBC x10^3 (test code <0.01 See_Comment [Auto mated = 8324630456) message] The s ystem which generated this result transmitted reference range : 10*3/?L. The reference range was not used to interpret this result as normal/abnormal . GRAN MAT (NEUT) % 80.0 % (test code = 770-8) IMM GRAN % (test code 0.50 % = 9717351394) LYMPH % (test code = 11.8 % 736-9) MONO % (test code = 6.6 % 5905-5) EOS % (test code = 0.8 % 713-8) BASO % (test code = 0.3 % 706-2) GRAN MAT x10^3(ANC) 6.98 10*3/uL 1.99-6.95 H (test code = 7892377159) IMM GRAN x10^3 (test 0.04 10*3/uL 0-0.06 code = 1562296098) LYMPH x10^3 (test code 1.03 10*3/uL 1.09-3.23 L = 731-0) MONO x10^3 (test code 0.58 10*3/uL 0.36-1.02 = 742-7) EOS x10^3 (test code = 0.07 10*3/uL 0.06-0.53 711-2) BASO x10^3 (test code 0.03 10*3/uL 0.01-0.09 = 704-7) Lab Interpretation Abnormal (test code = 72759-5) [facility] Metabolic Panel (NA, K, CL, CO2, GLUCOSE, BUN, CREATININE, CA)2020-05-09 11:07:00 Test Item Value Reference Range Interpretation Comments NA (test code = 133 mmol/L 135-145 L 1380674076) K (test code = 4.4 mmol/L 3.5-5 0216912210) CL (test code = 100 mmol/L 98-108 3079615264) CO2 TOTAL (test code = 25 mmol/L 23-31 1876128972) AGAP (test code = 2-16 4114974555) BUN (test code = 14 mg/dL 7-23 5172918323) GLUCOSE (test code = 93 mg/dL 70-110 8785494109) CREATININE (test code = 0.66 mg/dL 0.6-1.25 6762840484) CALCIUM (test code = 8.3 mg/dL 8.6-10.6 L 6122853144) eGFR Calculation mL/min/1.73m2 (Non-) (test code = 1712721845) eGFR Calculation mL/min/1.73m2 () (test code = 3185273008) GILBERTO (test code = GILBERTO) Association of [...] tests). Lab Interpretation Abnormal (test code = 89481-1) [facility] CenterMagnesium Mokjf9582-54-98 11:07:00 Test Item Value Reference Range Interpretation Comments MAGNESIUM (test code = 3682014410) 1.8 mg/dL 1.7-2.4 Lab Interpretation (test code = Normal 82732-0) [facility] CenterPhosphorus Rjhdl2883-10-14 11:07:00 Test Item Value Reference Range Interpretation Comments PHOSPHORUS (test code = 8557284671) 3.2 mg/dL 2.5-5 Lab Interpretation (test code = Normal 35382-9) [facility] with Rompqrnqfrmk4657-68-78 10:42:00 Test Item Value Reference Range Interpretation [...] RDW-SD (test code = 45.9 fL 38.5-51.6 72953-3) RDW-CV (test code = 15.4 % 12.1-15.4 788-0) PLT (test code = See_Comment H [Automated 777-3) message] The sy stem which generated this result transmitted reference range : 150 - 328 10*3/ ?L. The reference r meredith was not used to interpret this result as normal/abnormal . MPV (test code = 8.9 fL 9.8-13 L 60190-2) NRBC/100 WBC (test See_Comment [Automat ed code = 4230706408) message] The system which generated this result transmitted reference range : 0.0 - 10.0 /100 WBCs. The refer ence range was not u sed to interpret th is result as normal/abnormal . NRBC x10^3 (test code <0.01 See_Comment [Auto mated = 7105936243) message] The s ystem which generated this result transmitted reference range : 10*3/?L. The reference range was not used to interpret this result as normal/abnormal . GRAN MAT (NEUT) % 77.7 % (test code = 770-8) IMM GRAN % (test code 0.50 % = 3942349229) LYMPH % (test code = 11.8 % 736-9) MONO % (test code = 8.4 % 5905-5) EOS % (test code = 1.4 % 713-8) BASO % (test code = 0.2 % 706-2) GRAN MAT x10^3(ANC) 6.48 10*3/uL 1.99-6.95 (test code = 4450266257) IMM GRAN x10^3 (test 0.04 10*3/uL 0-0.06 code = 1420160564) LYMPH x10^3 (test code 0.98 10*3/uL 1.09-3.23 L = 731-0) MONO x10^3 (test code 0.70 10*3/uL 0.36-1.02 = 742-7) EOS x10^3 (test code = 0.12 10*3/uL 0.06-0.53 711-2) BASO x10^3 (test code <0.03 0.01-0.09 = 704-7) Lab Interpretation Abnormal (test code = 52102-5) [facility] Metabolic Panel (NA, K, CL, CO2, GLUCOSE, BUN, CREATININE, CA)2020-05-08 12:18:00 Test Item Value Reference Range Interpretation Comments NA (test code = 136 mmol/L 135-145 2110927555) K (test code = 4.1 mmol/L 3.5-5 4729780163) CL (test code = 102 mmol/L 98-108 0065869302) CO2 TOTAL (test code = 26 mmol/L 23-31 9887842740) AGAP (test code = 2-16 3381730806) BUN (test code = 18 mg/dL 7-23 4712150542) GLUCOSE (test code = 99 mg/dL 70-110 7044732023) CREATININE (test code = 0.63 mg/dL 0.6-1.25 8421986481) CALCIUM (test code = 8.4 mg/dL 8.6-10.6 L 5701360028) eGFR Calculation mL/min/1.73m2 (Non-) (test code = 6379940409) eGFR Calculation mL/min/1.73m2 () (test code = 3944838364) GILBERTO (test code = GILBERTO) Association of [...] tests). Lab Interpretation Abnormal (test code = 91398-3) [facility] CenterMagnesium Rzjiu7388-29-44 12:18:00 Test Item Value Reference Range Interpretation Comments MAGNESIUM (test code = 2868830868) 1.8 mg/dL 1.7-2.4 Lab Interpretation (test code = Normal 83046-5) [facility] CenterPhosphorus Etmci7646-50-65 12:18:00 Test Item Value Reference Range Interpretation Comments PHOSPHORUS (test code = 5674922533) 3.2 mg/dL 2.5-5 Lab Interpretation (test code = Normal 05098-4) [facility] with Roxqtkmjovwr9242-55-38 11:50:00 Test Item Value Reference Range Interpretation [...] RDW-SD (test code = 46.9 fL 38.5-51.6 64794-8) RDW-CV (test code = 15.2 % 12.1-15.4 788-0) PLT (test code = See_Comment H [Automated 777-3) message] The sy stem which generated this result transmitted reference range : 150 - 328 10*3/ ?L. The reference r meredith was not used to interpret this result as normal/abnormal . MPV (test code = 9.0 fL 9.8-13 L 29736-3) NRBC/100 WBC (test See_Comment [Automat ed code = 5567244886) message] The system which generated this result transmitted reference range : 0.0 - 10.0 /100 WBCs. The refer ence range was not u sed to interpret th is result as normal/abnormal . NRBC x10^3 (test code <0.01 See_Comment [Auto mated = 5080366575) message] The s ystem which generated this result transmitted reference range : 10*3/?L. The reference range was not used to interpret this result as normal/abnormal . GRAN MAT (NEUT) % 76.3 % (test code = 770-8) IMM GRAN % (test code 0.70 % = 9934518368) LYMPH % (test code = 13.3 % 736-9) MONO % (test code = 8.4 % 5905-5) EOS % (test code = 1.1 % 713-8) BASO % (test code = 0.2 % 706-2) GRAN MAT x10^3(ANC) 6.93 10*3/uL 1.99-6.95 (test code = 6461691936) IMM GRAN x10^3 (test 0.06 10*3/uL 0-0.06 code = 6476075194) LYMPH x10^3 (test code 1.21 10*3/uL 1.09-3.23 = 731-0) MONO x10^3 (test code 0.76 10*3/uL 0.36-1.02 = 742-7) EOS x10^3 (test code = 0.10 10*3/uL 0.06-0.53 711-2) BASO x10^3 (test code <0.03 0.01-0.09 = 704-7) Lab Interpretation Abnormal (test code = 73980-7) [facility] CenterIR DRAINAGE BY CATHETER PERITONEAL OR KJCEXRSXTKPVBWR6685-06-19 13:09:04 Technically successful drainage catheter placement in [...] from those actually performing theprocedure. Please see [facility] for total sedation time. TECHNIQUE: The risks, [...] of the tract was performed. A 14 Chadian locking pigtail michael inagecatheter was placed in the collection and samples were sent for laboratoryanalysis. The left upper quadrant collection was identified under ultrasound and CTguidance. A 17-gauge coaxial needle wasadvanced into the collection. AnAmplatz wire was advanced into the collection over the needle and serialdilatation of the tract was performed. A 12 Chadian locking pigtail drainagecatheter was placed within the collection and samples were sent forlaboratory analysis. The right lower quadrant collectionwas identified under ultrasound and CTguidance. A 17-gauge coaxial needle was advanced into the colle ction.Serial dilatation was performed over the Amplatz wire. A 14 Chadian lockingpigtail drainage catheter was placed within the collection. Proper positioning was confirmed with postprocedural CT imaging of theabdomen and pelvis. The catheters were sutured to the skin. ESTIMATED BLOOD LOSS: <3cc. CONDITION: Stable. FINDINGS: Initial CT images demonstrate multiple abscesses in the left upper, rightupper, and right lower quadrants. [facility], Radiant Results Inft User - 05/07/2020 [...] was obtained. Prior to beginning the procedure, [place] Protocolwas performed to confirm the patient's identity [...] of the tract was performed. A 14 Chadian lockingpigtail drainagecatheter was placed in the collection and samples were sent for laboratoryanalysis.The left upper quadrant collection was identified under ultrasound and CTguidance. A 17-gauge coaxial needle was advanced into the collection. AnAmplatz wire was advanced into the collection over the needle and serialdilatation of the tract was performed. A 12 Chadian locking pigtail drainagecatheter wasplaced within the collection and samples were sent forlaboratory analysis.The right lower quadrant collection was identified under ultrasound and CTguidance. A 17-gauge coaxial needle was advanced intothe collection.Serial dilatation was performed over the Amplatz wire. A 14 Chadian lockingpigtail drainage catheter was placed within the [...] during the entire procedure and/orduring the botello components.[facility] CenterBatrist[facility] (NA, K, CL, CO2, GLUCOSE, BUN, CREATININE, CA) 2020-05-07 11:49:00 Test Item Value Reference Range Interpretation Comments NA (test code = 132 mmol/L 135-145 L 6437272448) K (test code = 4.0 mmol/L 3.5-5 7881194058) CL (test code = 101 mmol/L 98-108 2504917248) CO2 TOTAL (test code = 23 mmol/L 23-31 4720535129) AGAP (test code = 2-16 8553206024) BUN (test code = 21 mg/dL 7-23 8114772335) GLUCOSE (test code = 98 mg/dL 70-110 4838910526) CREATININE (test code = 0.65 mg/dL 0.6-1.25 5196736983) CALCIUM (test code = 8.4 mg/dL 8.6-10.6 L 9798007313) eGFR Calculation mL/min/1.73m2 (Non-) (test code = 4877201612) eGFR Calculation mL/min/1.73m2 () (test code = 8323726158) GILBERTO (test code = GILBERTO) Association of [...] tests). Lab Interpretation Abnormal (test code = 48872-2) [facility] CenterMagnesium Wgfrv4294-90-37 11:49:00 Test Item Value Reference Range Interpretation Comments MAGNESIUM (test code = 7658386248) 1.5 mg/dL 1.7-2.4 L Lab Interpretation (test code = Abnormal 32374-5) [facility] CenterPhosphorus Fnlke8692-16-09 11:49:00 Test Item Value Reference Range Interpretation Comments PHOSPHORUS (test code = 8800936344) 2.7 mg/dL 2.5-5 Lab Interpretation (test code = Normal 20935-4) [facility] CenterCB with Iclblshaboap2532-29-29 11:31:00 Test Item Value Reference Range Interpretation [...] RDW-SD (test code = 47.2 fL 38.5-51.6 34357-3) RDW-CV (test code = 15.3 % 12.1-15.4 788-0) PLT (test code = See_Comment H [Automated 777-3) message] The sy stem which generated this result transmitted reference range : 150 - 328 10*3/ ?L. The reference r meredith was not used to interpret this result as normal/abnormal . MPV (test code = 9.4 fL 9.8-13 L 91859-7) NRBC/100 WBC (test See_Comment [Automat ed code = 6716766578) message] The system which generated this result transmitted reference range : 0.0 - 10.0 /100 WBCs. The refer ence range was not u sed to interpret th is result as normal/abnormal . NRBC x10^3 (test code <0.01 See_Comment [Auto mated = 3771651378) message] The s ystem which generated this result transmitted reference range : 10*3/?L. The reference range was not used to interpret this result as normal/abnormal . GRAN MAT (NEUT) % 81.1 % (test code = 770-8) IMM GRAN % (test code 0.80 % = 9273678078) LYMPH % (test code = 9.5 % 736-9) MONO % (test code = 7.8 % 5905-5) EOS % (test code = 0.6 % 713-8) BASO % (test code = 0.2 % 706-2) GRAN MAT x10^3(ANC) 8.26 10*3/uL 1.99-6.95 H (test code = 7572597144) IMM GRAN x10^3 (test 0.08 10*3/uL 0-0.06 H code = 3577357641) LYMPH x10^3 (test code 0.97 10*3/uL 1.09-3.23 L = 731-0) MONO x10^3 (test code 0.79 10*3/uL 0.36-1.02 = 742-7) EOS x10^3 (test code = 0.06 10*3/uL 0.06-0.53 711-2) BASO x10^3 (test code <0.03 0.01-0.09 = 704-7) Lab Interpretation Abnormal (test code = 75640-3) [facility] Metabolic Panel (NA, K, CL, CO2, GLUCOSE, BUN, CREATININE, CA)2020-05-06 15:02:00 Test Item Value Reference Range Interpretation Comments NA (test code = 134 mmol/L 135-145 L 6719676339) K (test code = 4.3 mmol/L 3.5-5 9464306423) CL (test code = 105 mmol/L 98-108 0799894395) CO2 TOTAL (test code = 23 mmol/L 23-31 3050247406) AGAP (test code = 2-16 6904434382) BUN (test code = 18 mg/dL 7-23 6633123713) GLUCOSE (test code = 96 mg/dL 70-110 5062139693) CREATININE (test code = 0.67 mg/dL 0.6-1.25 3305188643) CALCIUM (test code = 8.5 mg/dL 8.6-10.6 L 9037180393) eGFR Calculation mL/min/1.73m2 (Non-) (test code = 7668009006) eGFR Calculation mL/min/1.73m2 () (test code = 2372028528) GILBERTO (test code = GILBERTO) Association of [...] tests). Lab Interpretation Abnormal (test code = 45943-1) [facility] 15:02:00 Test Item Value Reference Range Interpretation Comments MAGNESIUM (test code = 7772011889) 1.8 mg/dL 1.7-2.4 Lab Interpretation (test code = Normal 46294-4) [facility] [id number] 15:02:00 Test Item Value Reference Range Interpretation Comments PHOSPHORUS (test code = 9984703185) 3.2 mg/dL 2.5-5 Lab Interpretation (test code = Normal 78042-2) [facility] [facility] with Horebizmvpzx2235-95-68 10:41:00 Test Item Value Reference Range Interpretation [...] RDW-SD (test code = 47.0 fL 38.5-51.6 96848-4) RDW-CV (test code = 15.2 % 12.1-15.4 788-0) PLT (test code = See_Comment H [Automated 777-3) message] The sy stem which generated this result transmitted reference range : 150 - 328 10*3/ ?L. The reference r meredith was not used to interpret this result as normal/abnormal . MPV (test code = 9.1 fL 9.8-13 L 01717-1) NRBC/100 WBC (test See_Comment [Automat ed code = 3112141152) message] The system which generated this result transmitted reference range : 0.0 - 10.0 /100 WBCs. The refer ence range was not u sed to interpret th is result as normal/abnormal . NRBC x10^3 (test code <0.01 See_Comment [Auto mated = 5853101953) message] The s ystem which generated this result transmitted reference range : 10*3/?L. The reference range was not used to interpret this result as normal/abnormal . GRAN MAT (NEUT) % 77.3 % (test code = 770-8) IMM GRAN % (test code 0.60 % = 6900570297) LYMPH % (test code = 11.6 % 736-9) MONO % (test code = 9.5 % 5905-5) EOS % (test code = 0.8 % 713-8) BASO % (test code = 0.2 % 706-2) GRAN MAT x10^3(ANC) 6.69 10*3/uL 1.99-6.95 (test code = 5520106906) IMM GRAN x10^3 (test 0.05 10*3/uL 0-0.06 code = 7957936708) LYMPH x10^3 (test code 1.00 10*3/uL 1.09-3.23 L = 731-0) MONO x10^3 (test code 0.82 10*3/uL 0.36-1.02 = 742-7) EOS x10^3 (test code = 0.07 10*3/uL 0.06-0.53 711-2) BASO x10^3 (test code <0.03 0.01-0.09 = 704-7) Lab Interpretation Abnormal (test code = 67145-6) [facility] Packed RBC (in units), 1 Units 2020-05-05 15:59:33 Test Item Value Reference Range Interpretation Comments Cross Match Result Compatible (test code = 4409) ISBT Blood Type Code (test code = 288848) Unit Blood Type (test O Pos code = 4410) Unit Number (test [id number] code = 4411) Blood Expiration Date & Time (test code = 447807) Status Information Issued (test code = 4412) Product Red Blood Cells Identification (test code = 4413) Product Code (test [id number] Performed at [facility] code = 4414) Laboratory Services - [facility] Blood [address] [address]Iwhb Free: [phone] A No. [id number] [facility] - ONCE Badzkcj3778-41-30 11:34:29 Test Item Value Reference Range Interpretation Comments ABO & RH (test code O POSITIVE Performe d at [facility] = 20) Laboratory Serv [facility] Blood [facility]3 [address] [facility] [address]Jhzq Free: [phone] A No. [id number] IAT (test code = Negative Performed a t [facility] 1185) Laboratory Serv [facility] Blood [facility]3 [address] [facility] [address]Iavc Free: [phone] A No. [id number] [facility]PREALBUMIN2020-09-12 10:19:00 Test Item Value Reference Range Interpretation Comments PALB (test code = 23872-6) 8.0 mg/dL 18-45 L Lab Interpretation (test code = Abnormal 55938-1) [facility] Met[facility] (NA, K, CL, CO2, GLUCOSE, BUN, CREATININE, CA)2020-05-05 10:12:00 Test Item Value Reference Range Interpretation Comments NA (test code = 135 mmol/L 135-145 5605298437) K (test code = 4.1 mmol/L 3.5-5 6499781191) CL (test code = 106 mmol/L 98-108 2938480342) CO2 TOTAL (test code = 22 mmol/L 23-31 L 3058459103) AGAP (test code = 2-16 9145757057) BUN (test code = 25 mg/dL 7-23 H 6364763327) GLUCOSE (test code = 91 mg/dL 70-110 1050782729) CREATININE (test code = 0.68 mg/dL 0.6-1.25 6091411346) CALCIUM (test code = 7.4 mg/dL 8.6-10.6 L 0306464075) eGFR Calculation mL/min/1.73m2 (Non-) (test code = 2537038075) eGFR Calculation mL/min/1.73m2 () (test code = 3902355272) GILBERTO (test code = GILBERTO) Association of [...] tests). Lab Interpretation Abnormal (test code = 45766-0) [facility] [id number] 10:12:00 Test Item Value Reference Range Interpretation Comments MAGNESIUM (test code = 4907614608) 1.8 mg/dL 1.7-2.4 Lab Interpretation (test code = Normal 91756-7) [facility] CenterPhosphorus [id number] 10:12:00 Test Item Value Reference Range Interpretation Comments PHOSPHORUS (test code = 0496128446) 3.1 mg/dL 2.5-5 Lab Interpretation (test code = Normal 70202-4) [facility] with Gycnzddpzgid7884-28-77 09:18:00 Test Item Value Reference Range Interpretation [...] RDW-SD (test code = 48.4 fL 38.5-51.6 73787-9) RDW-CV (test code = 15.7 % 12.1-15.4 H 788-0) PLT (test code = See_Comment H [Automated 777-3) message] The sy stem which generated this result transmitted reference range : 150 - 328 10*3/ ?L. The reference r meredith was not used to interpret this result as normal/abnormal . MPV (test code = 9.1 fL 9.8-13 L 01200-8) NRBC/100 WBC (test See_Comment [Automat ed code = 7641043479) message] The system which generated this result transmitted reference range : 0.0 - 10.0 /100 WBCs. The refer ence range was not u sed to interpret th is result as normal/abnormal . NRBC x10^3 (test code <0.01 See_Comment [Auto mated = 4019558171) message] The s ystem which generated this result transmitted reference range : 10*3/?L. The reference range was not used to interpret this result as normal/abnormal . GRAN MAT (NEUT) % 79.0 % (test code = 770-8) IMM GRAN % (test code 0.70 % = 5468224146) LYMPH % (test code = 10.6 % 736-9) MONO % (test code = 8.9 % 5905-5) EOS % (test code = 0.5 % 713-8) BASO % (test code = 0.3 % 706-2) GRAN MAT x10^3(ANC) 7.81 10*3/uL 1.99-6.95 H (test code = 1233422529) IMM GRAN x10^3 (test 0.07 10*3/uL 0-0.06 H code = 4050556644) LYMPH x10^3 (test code 1.05 10*3/uL 1.09-3.23 L = 731-0) MONO x10^3 (test code 0.88 10*3/uL 0.36-1.02 = 742-7) EOS x10^3 (test code = 0.05 10*3/uL 0.06-0.53 L 711-2) BASO x10^3 (test code 0.03 10*3/uL 0.01-0.09 = 704-7) Lab Interpretation Abnormal (test code = 33798-2) [facility]IS2020-09-12 06:03:00 Test Item Value Reference Range Interpretation Comments APPEARANCE (test code = Hazy Clear A 9022054326) COLOR (test code = Yellow Yellow 6112414137) PH (test code = 4.8-8.0 8222776901) SP GRAVITY (test code = 1.003-1.030 H 6980974093) GLU U QUAL (test code = Normal Normal 0582822817) BLOOD (test code = Negative Negative 2229757403) KETONES (test code = Negative Negative 2144162166) PROTEIN (test code = Negative Negative 2887-8) UROBILIN (test code = Normal Normal 1484578174) BILIRUBIN (test code = Negative Negative 3137659552) NITRITE (test code = Negative Negative 3670152704) LEUK ROGER (test code = Negative Negative 9906328927) RBC/HPF (test code = See_Comment H [Autom ated message] 0024222445) The system [employer] generated this result transmitted ref erence range: 0 - 3 HP F. The reference range was not used to int erpret this result as normal/abnormal . WBC/HPF (test code = See_Comment [Autom ated message] 7391110368) The system [employer] generated this result transmitted ref erence range: 0 - 5 HP F. The reference range was not used to int erpret this result as normal/abnormal . BACTERIA (test code = Few Negative A 2323793326) MUCOUS (test code = Slight Negative LPF A 4206025145) CA OXALATE (test code = See_Comment H [Au tomated message] 4821881820) The system [employer] generated this result transmitted ref erence range: <=1 HPF. The reference range was not used to int erpret this result as normal/abnormal . Lab Interpretation (test Abnormal code = 04298-4) [facility] ABDOMEN PELVIS W [id number] 04:56:59 1. ?Interval removal of left subdiaphragmatic, [...] Preliminary Report Dictated by Resident: Ankush Lott MD., have reviewed this study and agree [...] reviewed this study and agree with the abovereport.[facility] CenterCOVID-[facility] (ID NOW RAPID TESTING)2020-05-05 03:40:00 Test Item Value Reference Range Interpretation Comments SARS-CoV-2 Rapid ID NOW Not Detected Not Detected (test code = 84471-3) GILBERTO (test code = GILBERTO) ID NOW COVID-19 Assay is an isothermal nucleic acid amplification test intended for the qualitative detection of nucleic acid from SARS-CoV-2 viral RNA in nasopharyngeal (PARENT COACH) specimens. It is used under Emergency Use [...] indicated. Lab Interpretation Normal (test code = 38268-2) [facility] CenterCOM[facility] METABOLIC PANEL (55204)2020-05-05 03:02:00 Test Item Value Reference Range Interpretation Comments NA (test code = 134 mmol/L 135-145 L 1406790121) K (test code = 4.7 mmol/L 3.5-5 9844456820) CL (test code = 99 mmol/L 98-108 5653222990) CO2 TOTAL (test code = 24 mmol/L 23-31 1622290448) AGAP (test code = 2-16 1019604241) BUN (test code = 37 mg/dL 7-23 H 5329127098) GLUCOSE (test code = 105 mg/dL 70-110 3238307134) CREATININE (test code = 0.94 mg/dL 0.6-1.25 4905011394) TOTAL BILI (test code = 0.5 mg/dL 0.1-1.6 6717776128) CALCIUM (test code = 8.8 mg/dL 8.6-10.6 0817897494) T PROTEIN (test code = 6.2 g/dL 6.3-8.2 L 1980115853) ALBUMIN (test code = 3.0 g/dL 3.5-5 L 1101149905) ALK PHOS (test code = 150 U/L 34-122 H 9340404583) ALTv (test code = 28 U/L 5-50 1742-6) AST(SGOT) (test code = 23 U/L 13-40 6190778451) eGFR Calculation mL/min/1.73m2 (Non-) (test code = 0283080460) eGFR Calculation mL/min/1.73m2 () (test code = 0775783413) GILBERTO (test code = GILBERTO) Association of [...] tests). Lab Interpretation Abnormal (test code = 87279-1) [facility] Center[facility]2020-[facility] 03:02:00 Test Item Value Reference Range Interpretation Comments LIPASE (test code = 2764840637) 323 U/L 0-220 H Lab Interpretation (test code = Abnormal 56503-9) [facility] WITH [id number] 02:43:00 Test Item Value Reference Range Interpretation [...] RDW-SD (test code = 45.7 fL 38.5-51.6 30883-5) RDW-CV (test code = 15.4 % 12.1-15.4 788-0) PLT (test code = See_Comment H [Automated 777-3) message] The system which generated this result transmit dain reference range : 150 - 328 10*3/ ?L. The reference range was not u sed to interpret th is result as normal/abnormal . MPV (test code = 8.9 fL 9.8-13 L 86733-9) NRBC/100 WBC (test See_Comment [Automat ed code = 4115530502) message] The system which generated this result transmit dain reference range : 0.0 - 10.0 /100 WBCs. The reference range was not used to interpret this result as normal/abnormal . NRBC x10^3 (test code <0.01 See_Comment [Auto mated = 8993131527) message] The system which generated this result transmit dain reference range : 10*3/?L. The reference range was not used to interpret this result as normal/abnormal . GRAN MAT (NEUT) % 82.6 % (test code = 770-8) IMM GRAN % (test code 0.60 % = 8882345740) LYMPH % (test code = 8.1 % 736-9) MONO % (test code = 8.1 % 5905-5) EOS % (test code = 0.4 % 713-8) BASO % (test code = 0.2 % 706-2) GRAN MAT x10^3(ANC) 11.18 10*3/uL 1.99-6.95 H (test code = 7029236603) IMM GRAN x10^3 (test 0.08 10*3/uL 0-0.06 H code = 0399884888) LYMPH x10^3 (test code 1.10 10*3/uL 1.09-3.23 = 731-0) MONO x10^3 (test code 1.09 10*3/uL 0.36-1.02 H = 742-7) EOS x10^3 (test code = 0.05 10*3/uL 0.06-0.53 L 711-2) BASO x10^3 (test code 0.03 10*3/uL 0.01-0.09 = 704-7) Lab Interpretation Abnormal (test code = 00580-9) [facility] METABOLIC PANEL (NA, K, CL, CO2, GLUCOSE, BUN, CREATININE, CA)2020-05-01 12:25:00 Test Item Value Reference Range Interpretation Comments NA (test code = 131 mmol/L 135-145 L 1616567611) K (test code = 4.7 mmol/L 3.5-5 7997198021) CL (test code = 97 mmol/L 98-108 L 1217771080) CO2 TOTAL (test code = 25 mmol/L 23-31 9961763595) AGAP (test code = 2-16 5269423478) BUN (test code = 30 mg/dL 7-23 H 3839645271) GLUCOSE (test code = 111 mg/dL 70-110 H 9476726461) CREATININE (test code = 0.69 mg/dL 0.6-1.25 8449935426) CALCIUM (test code = 9.3 mg/dL 8.6-10.6 1359071092) eGFR Calculation mL/min/1.73m2 (Non-) (test code = 4993049601) eGFR Calculation mL/min/1.73m2 () (test code = 7338066297) GILBERTO (test code = GILBERTO) Association of [...] tests). Lab Interpretation Abnormal (test code = 26725-2) [facility]2020-[facility]-08 12:07:00 Test Item Value Reference Range Interpretation Comments MAGNESIUM (test code = 0499065574) 2.3 mg/dL 1.7-2.4 Lab Interpretation (test code = Normal 28992-9) [facility]PHOSPHORUS2020-09-08 12:07:00 Test Item Value Reference Range Interpretation Comments PHOSPHORUS (test code = 1596738150) 4.6 mg/dL 2.5-5 Lab Interpretation (test code = Normal 22814-0) [facility] WITH [id number] 11:44:00 Test Item Value Reference Range Interpretation [...] RDW-SD (test code = 44.9 fL 38.5-51.6 00613-6) RDW-CV (test code = 14.8 % 12.1-15.4 788-0) PLT (test code = See_Comment H [Automated 777-3) message] The system which generated this result transmit dain reference range : 150 - 328 10*3/ ?L. The reference range was not u sed to interpret th is result as normal/abnormal . MPV (test code = 9.1 fL 9.8-13 L 55930-7) NRBC/100 WBC (test See_Comment [Automat ed code = 5919279909) message] The system which generated this result transmit dain reference range : 0.0 - 10.0 /100 WBCs. The reference range was not used to interpret this result as normal/abnormal . NRBC x10^3 (test code <0.01 See_Comment [Auto mated = 8225652345) message] The system which generated this result transmit dain reference range : 10*3/?L. The reference range was not used to interpret this result as normal/abnormal . GRAN MAT (NEUT) % 81.4 % (test code = 770-8) IMM GRAN % (test code 0.70 % = 5559216309) LYMPH % (test code = 8.7 % 736-9) MONO % (test code = 8.5 % 5905-5) EOS % (test code = 0.3 % 713-8) BASO % (test code = 0.4 % 706-2) GRAN MAT x10^3(ANC) 12.01 10*3/uL 1.99-6.95 H (test code = 0924103667) IMM GRAN x10^3 (test 0.10 10*3/uL 0-0.06 H code = 7602422687) LYMPH x10^3 (test code 1.28 10*3/uL 1.09-3.23 = 731-0) MONO x10^3 (test code 1.25 10*3/uL 0.36-1.02 H = 742-7) EOS x10^3 (test code = 0.04 10*3/uL 0.06-0.53 L 711-2) BASO x10^3 (test code 0.06 10*3/uL 0.01-0.09 = 704-7) Lab Interpretation Abnormal (test code = 86858-7) [facility] METABOLIC PANEL (NA, K, CL, CO2, GLUCOSE, BUN, CREATININE, CA)2020-04-29 12:08:00 Test Item Value Reference Range Interpretation Comments NA (test code = 130 mmol/L 135-145 L 7602164588) K (test code = 5.0 mmol/L 3.5-5 6735282580) CL (test code = 94 mmol/L 98-108 L 1237546130) CO2 TOTAL (test code = 27 mmol/L 23-31 9078523894) AGAP (test code = 2-16 8695573014) BUN (test code = 35 mg/dL 7-23 H 2286165424) GLUCOSE (test code = 116 mg/dL 70-110 H 3823819757) CREATININE (test code = 0.76 mg/dL 0.6-1.25 7618128477) CALCIUM (test code = 9.0 mg/dL 8.6-10.6 4447026052) eGFR Calculation mL/min/1.73m2 (Non-) (test code = 2936475295) eGFR Calculation mL/min/1.73m2 () (test code = 3675240597) GILBERTO (test code = GILBERTO) Association of [...] tests). Lab Interpretation Abnormal (test code = 30733-4) [facility]2020-[facility]-06 12:01:00 Test Item Value Reference Range Interpretation Comments MAGNESIUM (test code = 5399469004) 2.3 mg/dL 1.7-2.4 Lab Interpretation (test code = Normal 09036-0) [facility]2020-09-06 12:01:00 Test Item Value Reference Range Interpretation Comments PHOSPHORUS (test code = 5405134214) 4.5 mg/dL 2.5-5 Lab Interpretation (test code = Normal 23016-9) [facility] WITH [id number] 11:52:00 Test Item Value Reference Range Interpretation [...] RDW-SD (test code = 44.4 fL 38.5-51.6 68907-2) RDW-CV (test code = 14.7 % 12.1-15.4 788-0) PLT (test code = See_Comment H [Automated 777-3) message] The system which generated this result transmit dain reference range : 150 - 328 10*3/ ?L. The reference range was not u sed to interpret th is result as normal/abnormal . MPV (test code = 9.1 fL 9.8-13 L 92545-4) NRBC/100 WBC (test See_Comment [Automat ed code = 7732994446) message] The system which generated this result transmit dain reference range : 0.0 - 10.0 /100 WBCs. The reference range was not used to interpret this result as normal/abnormal . NRBC x10^3 (test code <0.01 See_Comment [Auto mated = 2739393043) message] The system which generated this result transmit dain reference range : 10*3/?L. The reference range was not used to interpret this result as normal/abnormal . GRAN MAT (NEUT) % 82.5 % (test code = 770-8) IMM GRAN % (test code 1.30 % = 3401728488) LYMPH % (test code = 7.1 % 736-9) MONO % (test code = 8.5 % 5905-5) EOS % (test code = 0.3 % 713-8) BASO % (test code = 0.3 % 706-2) GRAN MAT x10^3(ANC) 14.27 10*3/uL 1.99-6.95 H (test code = 5435003054) IMM GRAN x10^3 (test 0.23 10*3/uL 0-0.06 H code = 0346785363) LYMPH x10^3 (test code 1.23 10*3/uL 1.09-3.23 = 731-0) MONO x10^3 (test code 1.47 10*3/uL 0.36-1.02 H = 742-7) EOS x10^3 (test code = 0.05 10*3/uL 0.06-0.53 L 711-2) BASO x10^3 (test code 0.06 10*3/uL 0.01-0.09 = 704-7) Lab Interpretation Abnormal (test code = 42497-6) [facility] METABOLIC PANEL (NA, K, CL, CO2, GLUCOSE, BUN, CREATININE, CA)2020-04-28 10:15:00 Test Item Value Reference Range Interpretation Comments NA (test code = 130 mmol/L 135-145 L 8379870446) K (test code = 5.3 mmol/L 3.5-5 H 1558455401) CL (test code = 91 mmol/L 98-108 L 0124315158) CO2 TOTAL (test code = 29 mmol/L 23-31 2395930626) AGAP (test code = 2-16 4624649823) BUN (test code = 32 mg/dL 7-23 H 9239781580) GLUCOSE (test code = 101 mg/dL 70-110 1801194859) CREATININE (test code = 0.74 mg/dL 0.6-1.25 8953987020) CALCIUM (test code = 9.5 mg/dL 8.6-10.6 0169928741) eGFR Calculation mL/min/1.73m2 (Non-) (test code = 3871470614) eGFR Calculation mL/min/1.73m2 () (test code = 2278341910) GILBERTO (test code = GILBERTO) Association of [...] tests). Lab Interpretation Abnormal (test code = 83956-5) [facility] 10:12:00 Test Item Value Reference Range Interpretation Comments MAGNESIUM (test code = 8752021968) 2.3 mg/dL 1.7-2.4 Lab Interpretation (test code = Normal 38036-9) [facility] WITH [id number] 09:55:00 Test Item Value Reference Range Interpretation Comments WBC (test code = See_Comment H [Automated 9190-2) message] The system which generated this result [...] RDW-SD (test code = 45.1 fL 38.5-51.6 48851-7) RDW-CV (test code = 14.7 % 12.1-15.4 788-0) PLT (test code = See_Comment H [Automated 777-3) message] The system which generated this result transmit dain reference range : 150 - 328 10*3/ ?L. The reference range was not u sed to interpret th is result as normal/abnormal . MPV (test code = 9.5 fL 9.8-13 L 53084-8) NRBC/100 WBC (test See_Comment [Automat ed code = 2468369918) message] The system which generated this result transmit dain reference range : 0.0 - 10.0 /100 WBCs. The reference range was not used to interpret this result as normal/abnormal . NRBC x10^3 (test code <0.01 See_Comment [Auto mated = 3650953780) message] The system which generated this result transmit dain reference range : 10*3/?L. The reference range was not used to interpret this result as normal/abnormal . GRAN MAT (NEUT) % 81.1 % (test code = 770-8) IMM GRAN % (test code 1.40 % = 0450129862) LYMPH % (test code = 8.6 % 736-9) MONO % (test code = 7.9 % 5905-5) EOS % (test code = 0.5 % 713-8) BASO % (test code = 0.5 % 706-2) GRAN MAT x10^3(ANC) 14.68 10*3/uL 1.99-6.95 H (test code = 7046844337) IMM GRAN x10^3 (test 0.25 10*3/uL 0-0.06 H code = 4848100304) LYMPH x10^3 (test code 1.55 10*3/uL 1.09-3.23 = 731-0) MONO x10^3 (test code 1.43 10*3/uL 0.36-1.02 H = 742-7) EOS x10^3 (test code = 0.09 10*3/uL 0.06-0.53 711-2) BASO x10^3 (test code 0.09 10*3/uL 0.01-0.09 = 704-7) Lab Interpretation Abnormal (test code = 81966-3) [facility] METABOLIC PANEL (NA, K, CL, CO2, GLUCOSE, BUN, CREATININE, CA)2020-04-27 10:20:00 Test Item Value Reference Range Interpretation Comments NA (test code = 130 mmol/L 135-145 L 6321986723) K (test code = 4.5 mmol/L 3.5-5 9711070337) CL (test code = 93 mmol/L 98-108 L 3127492658) CO2 TOTAL (test code = 28 mmol/L 23-31 5432240268) AGAP (test code = 2-16 7454108965) BUN (test code = 31 mg/dL 7-23 H 5896336391) GLUCOSE (test code = 102 mg/dL 70-110 8601114977) CREATININE (test code = 0.81 mg/dL 0.6-1.25 5290248851) CALCIUM (test code = 9.0 mg/dL 8.6-10.6 9953642488) eGFR Calculation mL/min/1.73m2 (Non-) (test code = 6582952041) eGFR Calculation mL/min/1.73m2 () (test code = 8300796613) GILBERTO (test code = GILBERTO) Association of [...] tests). Lab Interpretation Abnormal (test code = 86934-5) [facility] 10:20:00 Test Item Value Reference Range Interpretation Comments MAGNESIUM (test code = 6709735813) 2.2 mg/dL 1.7-2.4 Lab Interpretation (test code = Normal 05412-7) [facility] WITH [id number] 09:49:00 Test Item Value Reference Range Interpretation Comments WBC (test code = See_Comment H [Automated 6990-2) message] The system which generated this result [...] RDW-SD (test code = 45.2 fL 38.5-51.6 12912-5) RDW-CV (test code = 14.5 % 12.1-15.4 788-0) PLT (test code = See_Comment H [Automated 777-3) message] The system which generated this result transmit dain reference range : 150 - 328 10*3/ ?L. The reference range was not u sed to interpret th is result as normal/abnormal . MPV (test code = 9.0 fL 9.8-13 L 22025-6) NRBC/100 WBC (test See_Comment [Automat ed code = 9452056291) message] The system which generated this result transmit dain reference range : 0.0 - 10.0 /100 WBCs. The reference range was not used to interpret this result as normal/abnormal . NRBC x10^3 (test code <0.01 See_Comment [Auto mated = 1342795020) message] The system which generated this result transmit dain reference range : 10*3/?L. The reference range was not used to interpret this result as normal/abnormal . GRAN MAT (NEUT) % 80.9 % (test code = 770-8) IMM GRAN % (test code 1.30 % = 2708426549) LYMPH % (test code = 8.9 % 736-9) MONO % (test code = 7.7 % 5905-5) EOS % (test code = 0.6 % 713-8) BASO % (test code = 0.6 % 706-2) GRAN MAT x10^3(ANC) 13.18 10*3/uL 1.99-6.95 H (test code = 4732188212) IMM GRAN x10^3 (test 0.21 10*3/uL 0-0.06 H code = 3638475288) LYMPH x10^3 (test code 1.45 10*3/uL 1.09-3.23 = 731-0) MONO x10^3 (test code 1.26 10*3/uL 0.36-1.02 H = 742-7) EOS x10^3 (test code = 0.09 10*3/uL 0.06-0.53 711-2) BASO x10^3 (test code 0.10 10*3/uL 0.01-0.09 H = 704-7) Lab Interpretation Abnormal (test code = 21932-5) [facility] METABOLIC PANEL (NA, K, CL, CO2, GLUCOSE, BUN, CREATININE, CA)2020-04-26 11:29:00 Test Item Value Reference Range Interpretation Comments NA (test code = 133 mmol/L 135-145 L [id number]) K (test code = 4.7 mmol/L 3.5-5 3856190023) CL (test code = 98 mmol/L 98-108 4652527491) CO2 TOTAL (test code = 25 mmol/L 23-31 1603874481) AGAP (test code = 2-16 8797067246) BUN (test code = 26 mg/dL 7-23 H 2450871252) GLUCOSE (test code = 97 mg/dL 70-110 2540636303) CREATININE (test code = 0.73 mg/dL 0.6-1.25 4214948941) CALCIUM (test code = 8.7 mg/dL 8.6-10.6 9280709774) eGFR Calculation mL/min/1.73m2 (Non-) (test code = 9916876256) eGFR Calculation mL/min/1.73m2 () (test code = 9231791461) GILBERTO (test code = GILBERTO) Association of [...] tests). Lab Interpretation Abnormal (test code = 34041-3) [facility] Test Item Value Reference Range Interpretation Comments MAGNESIUM (test code = 9396802471) 2.1 mg/dL 1.7-2.4 Lab Interpretation (test code = Normal 96284-9) [facility] WITH [id number] 10:27:00 Test Item Value Reference Range Interpretation Comments WBC (test code = See_Comment H [Automated 6890-2) message] The system which generated this result [...] RDW-SD (test code = 45.4 fL 38.5-51.6 72213-6) RDW-CV (test code = 14.5 % 12.1-15.4 788-0) PLT (test code = See_Comment H [Automated 777-3) message] The system which generated this result transmit dain reference range : 150 - 328 10*3/ ?L. The reference range was not u sed to interpret th is result as normal/abnormal . MPV (test code = 9.3 fL 9.8-13 L 55411-0) NRBC/100 WBC (test See_Comment [Automat ed code = 2803168654) message] The system which generated this result transmit dain reference range : 0.0 - 10.0 /100 WBCs. The reference range was not used to interpret this result as normal/abnormal . NRBC x10^3 (test code <0.01 See_Comment [Auto mated = 2805520482) message] The system which generated this result transmit dain reference range : 10*3/?L. The reference range was not used to interpret this result as normal/abnormal . GRAN MAT (NEUT) % 79.6 % (test code = 770-8) IMM GRAN % (test code 1.30 % = 4004301066) LYMPH % (test code = 8.6 % 736-9) MONO % (test code = 9.3 % 5905-5) EOS % (test code = 0.8 % 713-8) BASO % (test code = 0.4 % 706-2) GRAN MAT x10^3(ANC) 12.46 10*3/uL 1.99-6.95 H (test code = 3923633228) IMM GRAN x10^3 (test 0.21 10*3/uL 0-0.06 H code = 3754806314) LYMPH x10^3 (test code 1.34 10*3/uL 1.09-3.23 = 731-0) MONO x10^3 (test code 1.45 10*3/uL 0.36-1.02 H = 742-7) EOS x10^3 (test code = 0.13 10*3/uL 0.06-0.53 711-2) BASO x10^3 (test code 0.07 10*3/uL 0.01-0.09 = 704-7) Lab Interpretation Abnormal (test code = 85615-6) [facility] (NA, K, CL, CO2, GLUCOSE, BUN, CREATININE, CA)2020-04-25 10:03:00 Test Item Value Reference Range Interpretation Comments NA (test code = 133 mmol/L 135-145 L 6604492170) K (test code = 4.6 mmol/L 3.5-5 6595888958) CL (test code = 96 mmol/L 98-108 L 0587091332) CO2 TOTAL (test code = 27 mmol/L 23-31 8367451654) AGAP (test code = 2-16 6338797601) BUN (test code = 21 mg/dL 7-23 6965189820) GLUCOSE (test code = 108 mg/dL 70-110 1209639447) CREATININE (test code = 0.76 mg/dL 0.6-1.25 2512223892) CALCIUM (test code = 9.5 mg/dL 8.6-10.6 3377271329) eGFR Calculation mL/min/1.73m2 (Non-) (test code = 2940091595) eGFR Calculation mL/min/1.73m2 () (test code = 0222916503) GILBERTO (test code = GILBERTO) Association of [...] tests). Lab Interpretation Abnormal (test code = 11873-0) [facility] 10[facility]03[facility]00 Test Item Value Reference Range Interpretation Comments MAGNESIUM (test code = 5548235869) 2.4 mg/dL 1.7-2.4 Lab Interpretation (test code = Normal 09855-5) [facility] WITH [id number] 09:48:00 Test Item Value Reference Range Interpretation [...] RDW-SD (test code = 45.7 fL 38.5-51.6 38311-0) RDW-CV (test code = 14.3 % 12.1-15.4 788-0) PLT (test code = See_Comment HH [Automated 777-3) message] The system which generated this result transmit dain reference range : 150 - 328 10*3/ ?L. The reference range was not u sed to interpret th is result as normal/abnormal . MPV (test code = 9.1 fL 9.8-13 L 14538-1) NRBC/100 WBC (test See_Comment [Automat ed code = 1142699504) message] The system which generated this result transmit dain reference range : 0.0 - 10.0 /100 WBCs. The reference range was not used to interpret this result as normal/abnormal . NRBC x10^3 (test code <0.01 See_Comment [Auto mated = 9586793833) message] The system which generated this result transmit dain reference range : 10*3/?L. The reference range was not used to interpret this result as normal/abnormal . GRAN MAT (NEUT) % 78.9 % (test code = 770-8) IMM GRAN % (test code 1.70 % = 3130558485) LYMPH % (test code = 8.7 % 736-9) MONO % (test code = 9.1 % 5905-5) EOS % (test code = 0.9 % 713-8) BASO % (test code = 0.7 % 706-2) GRAN MAT x10^3(ANC) 11.96 10*3/uL 1.99-6.95 H (test code = 9192559197) IMM GRAN x10^3 (test 0.26 10*3/uL 0-0.06 H code = 3426126043) LYMPH x10^3 (test code 1.32 10*3/uL 1.09-3.23 = 731-0) MONO x10^3 (test code 1.38 10*3/uL 0.36-1.02 H = 742-7) EOS x10^3 (test code = 0.13 10*3/uL 0.06-0.53 711-2) BASO x10^3 (test code 0.11 10*3/uL 0.01-0.09 H = 704-7) Lab Interpretation Abnormal (test code = 27078-1) [facility] WITH [id number] 10:40:00 Test Item Value Reference Range Interpretation [...] RDW-SD (test code = 46.3 fL 38.5-51.6 42422-2) RDW-CV (test code = 14.5 % 12.1-15.4 788-0) PLT (test code = See_Comment HH [Automated 777-3) message] The sy stem which generated this result transmitted reference range : 150 - 328 10*3/ ?L. The reference r meredith was not used to interpret this result as normal/abnormal . MPV (test code = 9.1 fL 9.8-13 L 88200-4) NRBC/100 WBC (test See_Comment [Automat ed code = 3949145203) message] The system which generated this result transmitted reference range : 0.0 - 10.0 /100 WBCs. The refer ence range was not u sed to interpret th is result as normal/abnormal . NRBC x10^3 (test code <0.01 See_Comment [Auto mated = 8929183594) message] The s ystem which generated this result transmitted reference range : 10*3/?L. The reference range was not used to interpret this result as normal/abnormal . GRAN MAT (NEUT) % 74.7 % (test code = 770-8) IMM GRAN % (test code 2.00 % = 6674335668) LYMPH % (test code = 10.0 % 736-9) MONO % (test code = 11.4 % 5905-5) EOS % (test code = 1.3 % 713-8) BASO % (test code = 0.6 % 706-2) GRAN MAT x10^3(ANC) 9.44 10*3/uL 1.99-6.95 H (test code = 2215032421) IMM GRAN x10^3 (test 0.25 10*3/uL 0-0.06 H code = 7644181828) LYMPH x10^3 (test code 1.26 10*3/uL 1.09-3.23 = 731-0) MONO x10^3 (test code 1.44 10*3/uL 0.36-1.02 H = 742-7) EOS x10^3 (test code = 0.16 10*3/uL 0.06-0.53 711-2) BASO x10^3 (test code 0.07 10*3/uL 0.01-0.09 = 704-7) Lab Interpretation Abnormal (test code = 73408-7) [facility] METABOLIC PANEL (NA, K, CL, CO2, GLUCOSE, BUN, CREATININE, CA)2020-04-24 10:39:00 Test Item Value Reference Range Interpretation Comments NA (test code = 133 mmol/L 135-145 L 3015035026) K (test code = 4.3 mmol/L 3.5-5 7250639640) CL (test code = 99 mmol/L 98-108 8594706420) CO2 TOTAL (test code = 29 mmol/L 23-31 1929408837) AGAP (test code = 2-16 1641458672) BUN (test code = 20 mg/dL 7-23 9191767502) GLUCOSE (test code = 109 mg/dL 70-110 6519029326) CREATININE (test code = 0.78 mg/dL 0.6-1.25 0558975509) CALCIUM (test code = 8.4 mg/dL 8.6-10.6 L 1528632878) eGFR Calculation mL/min/1.73m2 (Non-) (test code = 3085790321) eGFR Calculation mL/min/1.73m2 () (test code = 6358881503) GILBERTO (test code = GILBERTO) Association of [...] tests). Lab Interpretation Abnormal (test code = 14959-1) [facility] 10:39:00 Test Item Value Reference Range Interpretation Comments MAGNESIUM (test code = 8037808094) 2.2 mg/dL 1.7-2.4 Lab Interpretation (test code = Normal 72035-1) [facility] W [id number] 09:30:06 1. ?Overall, no significant change in [...] angulated coccyx. No acute oraggressive osseous abnormality. [facility], Radiant Results Inft User - 04/24/2020 4:31 [...] reviewed this study and agree with theabove report.[facility]CT THORAX W [id number] 03:46:28 Acute pulmonary emboli in the anterior [...] andmorphology. No significant pericardial thickening or effusion. Hmbqibjy-xg-fcduv cardiomediastinal shift. Scattered subcentimeter mediastinal and bilateral [...] andmorphology. No significant pericardial thickening or effusion. Iqoczdhp-uu-fsizh cardiomediastinal shift.Scattered subcentimeter mediastinal and bilateral hilar [...] reviewed this study and agree with theabove report.[facility] ([facility] NOW RAPID TESTING)2020-04-23 17:45:00 Test Item Value Reference Range Interpretation Comments SARS-CoV-2 Rapid ID NOW Not Detected Not Detected (test code = 58622-0) GILBERTO (test code = GILBERTO) ID NOW COVID-19 Assay is an isothermal nucleic acid amplification test intended for the qualitative detection of nucleic acid from SARS-CoV-2 viral RNA in nasopharyngeal (PARENT COACH) specimens. It is used under Emergency Use [...] indicated. Lab Interpretation Normal (test code = 86430-2) [facility]2020-[facility]31 17:40:00 Test Item Value Reference Range Interpretation Comments PALB (test code = 22138-0) 11.8 mg/dL 18-45 L Lab Interpretation (test code = Abnormal 26114-7) [facility] [id number] 15:00:55 Stable appearance of left pleural effusion [...] reviewed this study and agree with theabove report.[facility]POT[facility]SIUM [id number] 14:14:00 Test Item Value Reference Range Interpretation Comments K (test code = 6908465357) 4.8 mmol/L 3.5-5 Lab Interpretation (test code = Normal 74032-9) [facility] [id number] 11:30:00 Test Item Value Reference Range Interpretation [...] RDW-SD (test code = 45.0 fL 38.5-51.6 43834-2) RDW-CV (test code = 14.5 % 12.1-15.4 788-0) PLT (test code = See_Comment HH [Automated 777-3) message] The sy stem which generated this result transmitted reference range : 150 - 328 10*3/ ?L. The reference r meredith was not used to interpret this result as normal/abnormal . MPV (test code = 9.4 fL 9.8-13 L 95089-1) IPF % (test code = 1.6 % 1.2-10.7 Platelet count 1359843954) measured by fluorescence method. NRBC/100 WBC (test See_Comment [Automat ed code = 2334165373) message] The system which generated this result transmitted reference range : 0.0 - 10.0 /100 WBCs. The refer ence range was not u sed to interpret th is result as normal/abnormal . NRBC x10^3 (test code <0.01 See_Comment [Auto mated = 3097769024) message] The s ystem which generated this result transmitted reference range : 10*3/?L. The reference range was not used to interpret this result as normal/abnormal . GRAN MAT (NEUT) % 73.4 % (test code = 770-8) IMM GRAN % (test code 1.80 % = 8416853012) LYMPH % (test code = 12.6 % 736-9) MONO % (test code = 10.8 % 5905-5) EOS % (test code = 1.0 % 713-8) BASO % (test code = 0.4 % 706-2) GRAN MAT x10^3(ANC) 9.57 10*3/uL 1.99-6.95 H (test code = 9155087537) IMM GRAN x10^3 (test 0.24 10*3/uL 0-0.06 H code = 4674509097) LYMPH x10^3 (test code 1.64 10*3/uL 1.09-3.23 = 731-0) MONO x10^3 (test code 1.41 10*3/uL 0.36-1.02 H = 742-7) EOS x10^3 (test code = 0.13 10*3/uL 0.06-0.53 711-2) BASO x10^3 (test code 0.05 10*3/uL 0.01-0.09 = 704-7) Lab Interpretation Abnormal (test code = 23137-8) [facility] METABOLIC PANEL (NA, K, CL, CO2, GLUCOSE, BUN, CREATININE, CA)2020-04-23 10:52:00 Test Item Value Reference Range Interpretation Comments NA (test code = 132 mmol/L 135-145 L 9244564482) K (test code = 5.7 mmol/L 3.5-5 H 4355113115) CL (test code = 97 mmol/L 98-108 L 4002224925) CO2 TOTAL (test code = 26 mmol/L 23-31 6164515760) AGAP (test code = 2-16 2454575423) BUN (test code = 34 mg/dL 7-23 H 3923649375) GLUCOSE (test code = 101 mg/dL 70-110 3105608429) CREATININE (test code = 0.85 mg/dL 0.6-1.25 0983883540) CALCIUM (test code = 9.0 mg/dL 8.6-10.6 9956255489) eGFR Calculation mL/min/1.73m2 (Non-) (test code = 6594431953) eGFR Calculation mL/min/1.73m2 () (test code = 2868268382) GILBERTO (test code = GILBERTO) Association of [...] tests). Lab Interpretation Abnormal (test code = 22634-3) [facility]2020-08-31 10:52:00 Test Item Value Reference Range Interpretation Comments MAGNESIUM (test code = 7723698478) 2.3 mg/dL 1.7-2.4 Lab Interpretation (test code = Normal 61209-0) [facility] [id number] 13:26:55 FINDINGS/IMPRESSION: 1. ?A left pigtail chest [...] reviewed this study and agree with theabove report.[facility] 2020-04-22 13:24:27FINDINGS/IMPRESSION: [...] have reviewed this study and agree with theaberic report.XR CHEST 1 VW HISTORY: chest tube removed siting up in bed COMPARISON: Chest x-ray on 04/20/2020 [facility], Radiant Results Inft User - 04/22/2020 [...] this study and agree with theabove report. [facility] (NA, K, CL, CO2, GLUCOSE, BUN, CREATININE, CA)2020-04-22 11:49:00 Test Item Value Reference Range Interpretation Comments NA (test code = 132 mmol/L 135-145 L 8608842354) K (test code = 4.7 mmol/L 3.5-5 2096234650) CL (test code = 97 mmol/L 98-108 L 3862376278) CO2 TOTAL (test code = 30 mmol/L 23-31 3608070367) AGAP (test code = 2-16 4174472827) BUN (test code = 28 mg/dL 7-23 H 9894793187) GLUCOSE (test code = 117 mg/dL 70-110 H 9691213400) CREATININE (test code = 0.88 mg/dL 0.6-1.25 8889804872) CALCIUM (test code = 8.8 mg/dL 8.6-10.6 9388061262) eGFR Calculation mL/min/1.73m2 (Non-) (test code = 1164673515) eGFR Calculation mL/min/1.73m2 () (test code = 4732531983) GILBERTO (test code = GILBERTO) Association of [...] tests). Lab Interpretation Abnormal (test code = 14576-4) [facility]30 11:49:00 Test Item Value Reference Range Interpretation Comments MAGNESIUM (test code = 8906018697) 2.4 mg/dL 1.7-2.4 Lab Interpretation (test code = Normal 46366-1) [facility] WITH [id number] 11:23:00 Test Item Value Reference Range Interpretation [...] RDW-SD (test code = 44.9 fL 38.5-51.6 46405-5) RDW-CV (test code = 14.4 % 12.1-15.4 788-0) PLT (test code = See_Comment HH [Automated 777-3) message] The sy stem which generated this result transmitted reference range : 150 - 328 10*3/ ?L. The reference r meredith was not used to interpret this result as normal/abnormal . MPV (test code = 9.5 fL 9.8-13 L 10378-3) NRBC/100 WBC (test See_Comment [Automat ed code = 7306816820) message] The system which generated this result transmitted reference range : 0.0 - 10.0 /100 WBCs. The refer ence range was not u sed to interpret th is result as normal/abnormal . NRBC x10^3 (test code <0.01 See_Comment [Auto mated = 6167326449) message] The s ystem which generated this result transmitted reference range : 10*3/?L. The reference range was not used to interpret this result as normal/abnormal . GRAN MAT (NEUT) % 80.3 % (test code = 770-8) IMM GRAN % (test code 1.50 % = 6732213574) LYMPH % (test code = 7.2 % 736-9) MONO % (test code = 9.7 % 5905-5) EOS % (test code = 0.7 % 713-8) BASO % (test code = 0.6 % 706-2) GRAN MAT x10^3(ANC) 9.99 10*3/uL 1.99-6.95 H (test code = 4597379806) IMM GRAN x10^3 (test 0.19 10*3/uL 0-0.06 H code = 3455335885) LYMPH x10^3 (test code 0.90 10*3/uL 1.09-3.23 L = 731-0) MONO x10^3 (test code 1.21 10*3/uL 0.36-1.02 H = 742-7) EOS x10^3 (test code = 0.09 10*3/uL 0.06-0.53 711-2) BASO x10^3 (test code 0.07 10*3/uL 0.01-0.09 = 704-7) Lab Interpretation Abnormal (test code = 19875-6) [facility] WITH [id number] 14:15:00 Test Item Value Reference Range Interpretation [...] RDW-SD (test code = 44.4 fL 38.5-51.6 52278-1) RDW-CV (test code = 14.2 % 12.1-15.4 788-0) PLT (test code = See_Comment HH [Automated 777-3) message] The sy stem which generated this result transmitted reference range : 150 - 328 10*3/ ?L. The reference r meredith was not used to interpret this result as normal/abnormal . MPV (test code = 9.0 fL 9.8-13 L 58903-4) NRBC/100 WBC (test See_Comment [Automat ed code = 6715860432) message] The system which generated this result transmitted reference range : 0.0 - 10.0 /100 WBCs. The refer ence range was not u sed to interpret th is result as normal/abnormal . NRBC x10^3 (test code <0.01 See_Comment [Auto mated = 7284111089) message] The s ystem which generated this result transmitted reference range : 10*3/?L. The reference range was not used to interpret this result as normal/abnormal . GRAN MAT (NEUT) % 76.4 % (test code = 770-8) IMM GRAN % (test code 1.30 % = 0791859032) LYMPH % (test code = 10.9 % 736-9) MONO % (test code = 9.6 % 5905-5) EOS % (test code = 1.1 % 713-8) BASO % (test code = 0.7 % 706-2) GRAN MAT x10^3(ANC) 9.41 10*3/uL 1.99-6.95 H (test code = 0158405341) IMM GRAN x10^3 (test 0.16 10*3/uL 0-0.06 H code = 1349748079) LYMPH x10^3 (test code 1.34 10*3/uL 1.09-3.23 = 731-0) MONO x10^3 (test code 1.18 10*3/uL 0.36-1.02 H = 742-7) EOS x10^3 (test code = 0.13 10*3/uL 0.06-0.53 711-2) BASO x10^3 (test code 0.08 10*3/uL 0.01-0.09 = 704-7) Lab Interpretation Abnormal (test code = 21535-6) [facility] METABOLIC PANEL (NA, K, CL, CO2, GLUCOSE, BUN, CREATININE, CA)2020-04-21 13:47:00 Test Item Value Reference Range Interpretation Comments NA (test code = 130 mmol/L 135-145 L 3439254687) K (test code = 4.8 mmol/L 3.5-5 1370887969) CL (test code = 95 mmol/L 98-108 L 8126362590) CO2 TOTAL (test code = 29 mmol/L 23-31 2968619930) AGAP (test code = 2-16 2364829143) BUN (test code = 25 mg/dL 7-23 H 9778391749) GLUCOSE (test code = 98 mg/dL 70-110 2631129723) CREATININE (test code = 0.78 mg/dL 0.6-1.25 0401420638) CALCIUM (test code = 8.2 mg/dL 8.6-10.6 L 6151846907) eGFR Calculation mL/min/1.73m2 (Non-) (test code = 3274327774) eGFR Calculation mL/min/1.73m2 () (test code = 7523461630) GILBERTO (test code = GILBERTO) Association of [...] tests). Lab Interpretation Abnormal (test code = 81037-4) [facility] 13:47:00 Test Item Value Reference Range Interpretation Comments MAGNESIUM (test code = 2626214152) 2.1 mg/dL 1.7-2.4 Lab Interpretation (test code = Normal 55323-7) [facility]2020-[facility] 21:30:00 Test Item Value Reference Range Interpretation Comments PALB (test code = 79292-3) 9.3 mg/dL 18-45 L Lab Interpretation (test code = Abnormal 42523-2) [facility] [id number] 14:32:00 Test Item Value Reference Range Interpretation Comments BODY FLUID CULT No organisms isolated (test code = 611-4) Gram stain (test Occasional (Rare) code = 664-3) Pol[facility]orphonuclear leukocytes [facility] [id number] 13:09:21EXAM: XR CHEST 1 VW HISTORY: ct [...] heart and great vessels are normal. ? [facility], Radiant Results Inft User - 04/20/2020 8:10 [...] The heart and great vessels are normal. [facility] (NA, K, CL, CO2, GLUCOSE, BUN, CREATININE, CA)2020-04-20 11:00:00 Test Item Value Reference Range Interpretation Comments NA (test code = 132 mmol/L 135-145 L 8089078902) K (test code = 5.2 mmol/L 3.5-5 H 5165268012) CL (test code = 100 mmol/L 98-108 7657664487) CO2 TOTAL (test code = 24 mmol/L 23-31 2681313529) AGAP (test code = 2-16 4386874480) BUN (test code = 19 mg/dL 7-23 1395406923) GLUCOSE (test code = 121 mg/dL 70-110 H 9563576732) CREATININE (test code = 0.77 mg/dL 0.6-1.25 5868156165) CALCIUM (test code = 8.2 mg/dL 8.6-10.6 L 8237959815) eGFR Calculation mL/min/1.73m2 (Non-) (test code = 4863734290) eGFR Calculation mL/min/1.73m2 () (test code = 0426502139) GILBERTO (test code = GILBERTO) Association of [...] tests). Lab Interpretation Abnormal (test code = 53379-8) [facility]2020-08-28 11:00:00 Test Item Value Reference Range Interpretation Comments MAGNESIUM (test code = 2356258864) 2.1 mg/dL 1.7-2.4 Lab Interpretation (test code = Normal 47217-9) [facility]2020-08-28 11:00:00 Test Item Value Reference Range Interpretation Comments PHOSPHORUS (test code = 6786326475) 3.9 mg/dL 2.5-5 Lab Interpretation (test code = Normal 56299-1) [facility] WITH [id number] 10:23:00 Test Item Value Reference Range Interpretation Comments WBC (test code = See_Comment H [Automated 4890-2) message] The system which generated this result transmit dain reference range : 4.20 - 10.70 10*3/?L. The reference range was not used to interpret this result as normal/abnormal . RBC (test code = See_Comment L [Automated 889-8) message] The system which generated this result [...] RDW-SD (test code = 45.2 fL 38.5-51.6 54635-9) RDW-CV (test code = 14.2 % 12.1-15.4 788-0) PLT (test code = See_Comment HH [Automated 777-3) message] The system which generated this result transmit dain reference range : 150 - 328 10*3/ ?L. The reference range was not u sed to interpret th is result as normal/abnormal . MPV (test code = 9.3 fL 9.8-13 L 88430-6) NRBC/100 WBC (test See_Comment [Automat ed code = 6561919498) message] The system which generated this result transmit dain reference range : 0.0 - 10.0 /100 WBCs. The reference range was not used to interpret this result as normal/abnormal . NRBC x10^3 (test code <0.01 See_Comment [Auto mated = 1115987808) message] The system which generated this result transmit dain reference range : 10*3/?L. The reference range was not used to interpret this result as normal/abnormal . GRAN MAT (NEUT) % 79.8 % (test code = 770-8) IMM GRAN % (test code 1.50 % = 3333609949) LYMPH % (test code = 9.8 % 736-9) MONO % (test code = 7.5 % 5905-5) EOS % (test code = 0.6 % 713-8) BASO % (test code = 0.8 % 706-2) GRAN MAT x10^3(ANC) 10.64 10*3/uL 1.99-6.95 H (test code = 7095800834) IMM GRAN x10^3 (test 0.20 10*3/uL 0-0.06 H code = 6038412265) LYMPH x10^3 (test code 1.31 10*3/uL 1.09-3.23 = 731-0) MONO x10^3 (test code 1.00 10*3/uL 0.36-1.02 = 742-7) EOS x10^3 (test code = 0.08 10*3/uL 0.06-0.53 711-2) BASO x10^3 (test code 0.10 10*3/uL 0.01-0.09 H = 704-7) Lab Interpretation Abnormal (test code = 21779-7) [facility] [id number] 12:25:53 No residual pleural effusion noted. Preliminary [...] heart is unchanged. No acute bony abnormality. [facility], Radiant Results Inft User - 04/19/2020 7:27 [...] reviewed this study and agree with theabove report.[facility]BAPSYCHIATRIC METABOLIC PANEL (NA, K, CL, CO2, GLUCOSE, BUN, CREATININE, CA)2020-04-19 11:09:00 Test Item Value Reference Range Interpretation Comments NA (test code = 133 mmol/L 135-145 L 4558038614) K (test code = 4.2 mmol/L 3.5-5 6819545275) CL (test code = 101 mmol/L 98-108 6121803337) CO2 TOTAL (test code = 26 mmol/L 23-31 9334164020) AGAP (test code = 2-16 0686891907) BUN (test code = 15 mg/dL 7-23 4811993534) GLUCOSE (test code = 113 mg/dL 70-110 H 0839000115) CREATININE (test code = 0.73 mg/dL 0.6-1.25 1465367269) CALCIUM (test code = 8.1 mg/dL 8.6-10.6 L 9032239340) eGFR Calculation mL/min/1.73m2 (Non-) (test code = 4006865205) eGFR Calculation mL/min/1.73m2 () (test code = 7946803276) GILBERTO (test code = GILBERTO) Association of [...] tests). Lab Interpretation Abnormal (test code = 87075-4) [facility]2020-[facility]27 11:09:00 Test Item Value Reference Range Interpretation Comments MAGNESIUM (test code = 9138285256) 2.1 mg/dL 1.7-2.4 Lab Interpretation (test code = Normal 78509-3) [facility]2020-[facility]-27 11:09:00 Test Item Value Reference Range Interpretation Comments PHOSPHORUS (test code = 9451293912) 3.9 mg/dL 2.5-5 Lab Interpretation (test code = Normal 81805-9) [facility] WITH [id number] 10:59:00 Test Item Value Reference Range Interpretation [...] RDW-SD (test code = 46.0 fL 38.5-51.6 16799-9) RDW-CV (test code = 14.2 % 12.1-15.4 788-0) PLT (test code = See_Comment HH [Automated 777-3) message] The sy stem which generated this result transmitted reference range : 150 - 328 10*3/ ?L. The reference r meredith was not used to interpret this result as normal/abnormal . MPV (test code = 9.3 fL 9.8-13 L 62606-0) NRBC/100 WBC (test See_Comment [Automat ed code = [id number]) message] The system which generated this result transmitted reference range : 0.0 - 10.0 /100 WBCs. The refer ence range was not u sed to interpret th is result as normal/abnormal . NRBC x10^3 (test code <0.01 See_Comment [Auto mated = [id number]) message] The s ystem which generated this result transmitted reference range : 10*3/?L. The reference range was not used to interpret this result as normal/abnormal . GRAN MAT (NEUT) % 79.2 % (test code = 770-8) IMM GRAN % (test code 1.00 % = [id number]) LYMPH % (test code = 11.4 % 736-9) MONO % (test code = 6.7 % 5905-5) EOS % (test code = 1.0 % 713-8) BASO % (test code = 0.7 % 706-2) GRAN MAT x10^3(ANC) 9.49 10*3/uL 1.99-6.95 H (test code = 8096902338) IMM GRAN x10^3 (test 0.12 10*3/uL 0-0.06 H code = [id number]) LYMPH x10^3 (test code 1.36 10*3/uL 1.09-3.23 = 731-0) MONO x10^3 (test code 0.80 10*3/uL 0.36-1.02 = 742-7) EOS x10^3 (test code = 0.12 10*3/uL 0.06-0.53 711-2) BASO x10^3 (test code 0.08 10*3/uL 0.01-0.09 = 704-7) Lab Interpretation Abnormal (test code = 50620-6) [id number] 22:29:00 Test Item Value Reference Range Interpretation Comments Blood Culture-Aerobic No organisms No growth Previo us (test code = 08692-5) isolated prelim inary verified result was Culture In Progress on 04/13/2020 at 06 06 CDT Blood Culture positive. No growth AA Previous Culture-Anaerobic See Blood Culture preli minary (test code = 02609-9) Workup for verifi ed result additional was Culture In information. Progress on 04/12/2020 at 18 01 CDT Lab Interpretation Abnormal (test code = 24410-6) [facility] WITH IMAGING 2020-04-18 15:38:00Successful image guided 10 Chadian pigtail chest tube insertioninto the left pleural [...] was obtained. Prior to beginning the procedure, [place] Protocolwas performed to confirm the patient's identity [...] pleural space. The tractwas dilated to 10 Chadian, and a 10 Chadian pigtail chest tube was insertedand coiled within [...] demonstrated a large amount of pleural fluid. [facility], Radiant Results Inft User - 04/18/2020 [...] was obtained. Prior to beginning the procedure, Bet[place] Protocolwas performed to confirm the patient's identity [...] pleural space. The tractwas dilated to 10 Chadian, and a 10 Chadian pigtail chest tube was insertedand coiled within [...] of pleural fluid. IMPRESSIONSuccessful image guided 10 Chadian pigtail chest tube insertioninto the left pleural space. PLAN: Post procedure chest radiograph [facility] obtained.[facility] 1 [id number] 13:37:38 Hazy left midlung opacity, may represent [...] on the left. No acute bony abnormality. [facility], Radiant Results Inft User - 04/18/2020 8:40 [...] reviewed this study and agree with the abovereport.[facility] METABOLIC PANEL (NA, K, CL, CO2, GLUCOSE, BUN, CREATININE, CA)2020-04-18 11:18:00 Test Item Value Reference Range Interpretation Comments NA (test code = 134 mmol/L 135-145 L 1619972500) K (test code = 4.4 mmol/L 3.5-5 7540188888) CL (test code = 102 mmol/L 98-108 0203091625) CO2 TOTAL (test code = 26 mmol/L 23-31 3727721604) AGAP (test code = 2-16 8134736780) BUN (test code = 12 mg/dL 7-23 0100382900) GLUCOSE (test code = 106 mg/dL 70-110 9633632978) CREATININE (test code = 0.74 mg/dL 0.6-1.25 5146289495) CALCIUM (test code = 7.5 mg/dL 8.6-10.6 L 2237265093) eGFR Calculation mL/min/1.73m2 (Non-) (test code = 7444437316) eGFR Calculation mL/min/1.73m2 () (test code = 9840961419) GILBERTO (test code = GILBERTO) Association of [...] tests). Lab Interpretation Abnormal (test code = 38077-7) [facility]2020-08-26 11:18:00 Test Item Value Reference Range Interpretation Comments MAGNESIUM (test code = 6714491437) 2.0 mg/dL 1.7-2.4 Lab Interpretation (test code = Normal 75815-4) [facility]2020-08-26 11:18:00 Test Item Value Reference Range Interpretation Comments PHOSPHORUS (test code = 1806139067) 3.4 mg/dL 2.5-5 Lab Interpretation (test code = Normal 56237-5) [facility] WITH [id number] 10:46:00 Test Item Value Reference Range Interpretation Comments WBC (test code = See_Comment H [Automated 6590-2) message] The system which generated this result transmit dain reference range : 4.20 - 10.70 10*3/?L. The reference range was not used to interpret this result as normal/abnormal . RBC (test code = See_Comment L [Automated 909-8) message] The system which generated this result [...] RDW-SD (test code = 46.5 fL 38.5-51.6 60321-4) RDW-CV (test code = 14.5 % 12.1-15.4 788-0) PLT (test code = See_Comment HH [Automated 777-3) message] The system which generated this result transmit dain reference range : 150 - 328 10*3/ ?L. The reference range was not u sed to interpret th is result as normal/abnormal . MPV (test code = 9.6 fL 9.8-13 L 66157-8) NRBC/100 WBC (test See_Comment [Automat ed code = 7627325485) message] The system which generated this result transmit dain reference range : 0.0 - 10.0 /100 WBCs. The reference range was not used to interpret this result as normal/abnormal . NRBC x10^3 (test code <0.01 See_Comment [Auto mated = 1597091958) message] The system which generated this result transmit dain reference range : 10*3/?L. The reference range was not used to interpret this result as normal/abnormal . GRAN MAT (NEUT) % 82.1 % (test code = 770-8) IMM GRAN % (test code 0.90 % = 1851915607) LYMPH % (test code = 9.2 % 736-9) MONO % (test code = 6.6 % 5905-5) EOS % (test code = 0.7 % 713-8) BASO % (test code = 0.5 % 706-2) GRAN MAT x10^3(ANC) 10.02 10*3/uL 1.99-6.95 H (test code = 6021985304) IMM GRAN x10^3 (test 0.11 10*3/uL 0-0.06 H code = 4593543052) LYMPH x10^3 (test code 1.12 10*3/uL 1.09-3.23 = 731-0) MONO x10^3 (test code 0.80 10*3/uL 0.36-1.02 = 742-7) EOS x10^3 (test code = 0.08 10*3/uL 0.06-0.53 711-2) BASO x10^3 (test code 0.06 10*3/uL 0.01-0.09 = 704-7) Lab Interpretation Abnormal (test code = 14817-2) [facility] CenterBL[facility] [id number] 20:01:00 Test Item Value Reference Range Interpretation Comments Blood Culture-Aerobic No organisms No growth Previo us (test code = 99407-8) isolated prelim inary verified result was Culture [...] Culture-Anaerobic isolated preliminar y (test code = 74351-6) verifi ed result was Culture In Progress [...] CDT Lab Interpretation Normal (test code = 17435-4) [facility] [id number] 19:38:57 FINDINGS/IMPRESSION: There are 2 left-sided chest [...] 2:35 PM on 04/17/[address] Mathieu Chapa.[facility] CenterCyto Pleural [id number] 17:29:00 Test Item Value Reference Range Interpretation Comments Case Report (test code Non-Gynecologic = 6654348709) Cytology ?Case: [id number] ?Authorizing Provider: ?Vance Stafford MD ?Collected: ? 04/16/2020 1650 ?Ordering Location: ? ? Surgery (NA[facility] 9C) ? Received: ?04/16/2020 1809 ?Pathologist: ? Alice Aj MD ? Specimen: ? ?PLEURAL, LEFT, EFFUSION ? Final Diagnosis (test w9rcjSDxNJCic4kwOYZhtD code = 8221920789) FuZzEwMzNcZnRuYmpcdWMx LFxrbeZsXHhum6ZzW5JeRr AwMFxhbnNpXGRlZmxhbmcx GRCaRFK8phBpJGTeSEsmUW PgVXfvSu9tgNJqhOjtGwMv EGEke9qjfhWYgacvrCg7v4 biPMJnUhY6xNZgRPccW1zg vlEohYGrJBAeXHw4cU80NY HquG1dhOVtYNqxdqCpNuT2 INdyJHRqBvZ5VTMsuCAiNN LoW4tmBRFrCBerRHOsXUdo mYChXIJ3vVdjg7R4bOEleB GvaHatMoSlKdMcOSZDd9Ht TOr9nGnaP7KvVLOnBbB1iF QgUGFyYWdyYXBoIEZvbnQ7 xM85FYhzoyG8gZCfc8Yws6 7oy961zS7ftDIuHRH8BZSb VMNqvHUhOAKvITJ0KTGbmU GhA0tiUVmhIA0phoibUWS2 MFxtYXJndDcyMFxtYXJnYj CrkILpFGCutYyfVVpec313 FQE4OyCxJQ6eE2Ixg6S7vG 9maXRcZGVmdGFiNzIwXGZv jc2zgYZsBHibb9WnVNJ9aj A4gLSiyNBfAQChEK79Ofql s2HoTtogOLP7GUFetdHtu6 Jta7ccQkRlrnOiR7nyU4If ZHJoZWFkXHBnYnJkcmZvb3 Cqk4LmkOSxiHz7e9wtRSNj XUFejHxnf0loOPC2BWIvB0 V0uAYfl7jaMQzjDNPsnNL7 vuCgLJJidKCwQ0LhkN8jFU wmKA5wrrw4g6koVaWwZB3i sczau9jgKYfyGYDtQGQ9Ig EbXBTkb1RynmxrFvXyc0Ke vJTiRGtiK49eu903OACsun AjU6ovxZStgdefzXQqozig AItpgcP7FILbdqNjrJqoxJ 8lHjPiSlIjBRepFO7wJYYq T7xufIJtXTXhKCNwY3jyMk WlcF4iuHfaZYgrEaUkPhOf MFxiIEEuICBQTEVVUkEsIE tKOlA4WHPVP9PCV5IYBZRG SVMgRkxVSURccGFyICAgIC SeHZ0pJI8KUPQXWCMHME1C HQELGsLHN76ONzMLFYwRZR 1KSTPFU7AORYzPO9hwDDCq ICAgICAgLSBORUdBVElWRS ZJN3PjMFKHKTfBPL8ZJYFZ TExTXHBsYWluXGYxXGZzMj BcbGFuZzEwMzNcaGljaFxm BYoiDsHaBPQwDKybG1wlIb MvIvHtLOHpXIRXQGKQT30W AU8DGDvzWWV3e6gsgVGnTD FptKXiPkKiUNMzTOPlt5qb ZGVmbGFuZzEwMzNcZnRuYm hrqQKgCAMhTxPfe2ozy767 bXTxv8tsEIAhKuN8fNIgSO XtiCezyvg9iGonCiYpQJEp b7zfggChVwWqLGJlDCFeRJ BljMVbR390ITDaYAfkq1vi x0JbXQPksVWez1O1ESYAAM zuBnQkH373l5ict1hdzqWp vQS3ASHkKCP0AAjqezFwcu Q7PHghoHCnOhR3TWryrdEj RUjhegDmxxAtPsg2GZYfG2 69LPK6rXmkq3zcSPY7IIUq CNMqCzsdYb2unJWzX129IA IwFIFMARZqzOb8YPYslwYq usNveYFAo583C649v7jpNA AkagJfhUsShwmwa1esW825 XHBhcGVydzEyMjQwXHBhcG CkpLW5PIWmOF3qchzaYWaz SLduZRCnhfZ3LPHhqWIiS7 PmIICfBB8mcrhfAGA6PUoa JXOvFPI2UkZiUJUud7Hnzd p5YjRtzj5fgc26AMA6s5Nz cDslCFW3QGE3YmTxWc5bsF FfQKNkZJ8aDrRruWKvIXHl lb79xQzyFTwkljEhwX0zXo DcGEGmtNGtSFXyWY3crJRx WPPtlL9xzjdrNOBtVjIfxv akFOAngMbcmvIfCh1spBaj CLI7JCucA7echI2uTbB1BQ qwS2mkqI6qEJq7JTksoDW9 JHAbpS6wJR3wjcpdg3tbYY wfSGyoMCMsxqZ1enD0SPSw iWUsH3QtsX2vUXWrMS9gbo exh8keCCL9ZQluPLMjMAA7 SwQpOQFgf9Kuisu7LuZta5 TibHRcCZgyX12px323FDCt ocXvB2olnNBdezeqcPVsox woYOipmcZ8YTJgIXBnDUmv XGYxXGZzMjBcbGFuZzEwMz NcaGljaFxmMVxkYmNoXGYx JCumZ4ktWqKmD2TlTHXqDq GjxBYhFGfacRZ7CLYdVYKe q90unOy4EZCzqurbc9LbZT VooIKqaYFcgM9rqiBir1ot JQSqFIZqKSNdM0DjGFE7eA UpJVZhxFItrUI9ZA4nxfIp KG9cSKKsBkxlpsXmnVUjqe KtRVWoZRect8qtBB5cCMAo qHvtcY3arQK8LIBvi1sdxT ZyfZWos2hvt0WyzsIxKGrz WKPtADgcHDQdVZSoDZ9zWV EjpHFhfxTap0X8HrfduTYz nvdcTscurfK0FXmjijubHH LlFIbjW3sdMqEeTOApdWrs Qpedq0QbQSTlJUGwVekrkN FyfX0= Final Diagnosis Comment o3zgmIZyKDIifMVrKiQuCR (test code = ImSCRuy2znBDYqrSTjBmTk 4351643422) MzNcZnRuYmpcdWMxXGRlZm Jvh6kgj079oNDzn9zoZQZr NzK2cHGvRGDqiSBdP498q3 uhl1xrvzGsnSA5GLPjQKW6 EXdyjyQshzK8SYormMWaFz M8FAswctEhUBoxtnDebxMv Drd6ZVAsM967TPF6nDlpb0 mzIVW3KJLxDJZoKeEuQr1e mLIwD632AYOcBNFGMRLnaT f2AYKbggJmrqKquSGWm876 H564a8baOGMxenWgcLwWgb fwk9caB706CJMxcQHyfpQr IoRcEYRqiFYpwCX9TPHbGW 2vfkxwXZH9EGziMNLseuUo VYTxvCQpH5R8ZmAvoUVtK4 XrAKjqMGTfycs8WnPsTo1o wIUkyOY9ZKrnf9xvr5fbqL GnYea8MJUnGbGbQrepCOyb o0Hth3oqNCLgtq4aIAU1uI JopAlbt2Y4bQNyBHKcuARf nlIoCVFkTsW4JRipMK6cts 90BCOnEMV3sw4hdYHwmBxr tfBrsLLoNKbkE9KxKCIwh7 92UOTzH8KrODNiq9M9msQr RzYqRFHxtEV9lfD3HBViFY b7pDYbnpN7pyZomKGjY8gr rF1bJFdqTW5uhcxcm8hoPS L4BFloQBJtnMH7izbwSLrx CPDyKjH1vvEhlZEmVKPjnP cwISwaz328GIB6WaMdVMOe t7QiL1HxdWsgI98ovXwjT5 0jGERkaOvtaW9jbZwevG8w ZjBcZnMyNFxxbFxwbGFpbl xmMFxmczIwXGxhbmcxMDMz BJbrI5ooXnCbFFZynFbsYX aaf7KwLFFcHQEjWfCqZ21s RMGxz4zrq3XexJw6DLErmN 5sxMKhqHH0uN5bNLubrNgt nUFeML8xgZ7zatDcoOEmBV M6hn8rgXaimpguFpV6YBq1 hEFth8Y3pNLcGMQvSVYcbG VlcM1tVSBhn28fwTS4MU24 DWfnuMvgFI5ugDBgGO0rKb 6hlTActCojBF95DAFfpNhr OQpsBP06gGTnRZXgCNcwFH J9 Clinical Information Clinical Hx: ?Total (test code = colectomy complicated 7423696829) . Requested per consulting surgery team. Gross Description (test e5kmkPMhOFMsdNWnAkAeWD code = 8159534203) OrNKFfj5btQJAibLLkStKo MzNcZnRuYmpcdWMxXGRlZm Kxv2zrh226kTIdo6rrXHZg ZnI2nEQwKTYbvQTcM049z6 plv6xtyxYdrQM1JIUiMOK5 CNhrkcXtctD5SAagvRJiJw J0IQugbjAtMLjuqiIcmvZw Ssr3MKNlW264YMU4bYnlm8 ojDDR5MZMsLTYsUwYnGp5w aRMdO454RQNoIBNITHGxmX e0JMNugfTehaTigAVYi935 K260e5udZNBxlaXenUmYbq nch6cbC431AULenXOiddGa AhScAKRtgDMdcCH9VJPcHH 5whvqbRIV7QZgzVCXctiMl HBTdyAHmN3H2MvNzjPQlR4 CyUWiaTTWzyir4QrQbDw8s vUMajDN2SQxxx6jib6wetZ XtXsv3XWOaSoIsHihuKUia d6Qpj4gmPJVolj9xUNN7qX MorCkkk1D0bRPwGFSfeLIy leYkPLJhHdJ8XLxnHX9zly 19RBSnMKI1dw0klXEhyTyr gjJhaNBxGEtjL8JxNSMff9 32PKKqG7ApGFYxp5K8dpXr OdKkZCGqhUE3zqX3GEPdVW p0hPPmziV2nqQaiAEpV5ns gF3fKMcxOH3qbuceg2jzWJ Z9JRfyFQIjtFO2djrqFAwh TPWyOyO9umNkqDGlHYLmnN fxVPglb875MZW3TpKyNDIx x5SbO4AbmHutV91jsVdhE3 5xDPIceUedoU5sgKqgvR2q ZjBcZnMyNFxxbFxwbGFpbl xmMFxmczIwXGxhbmcxMDMz SGkyC8dlHmNwLAReyItoXX mtq0NdPRUwPAKeMwDxAZHp KJSOZBKVFkYsVBaJRcR3UU GCN8PKM0EPTWIACETcSmdD LLWfsMGwIJYdY5KszbLxMX DjMEAdZShlKFMqEYBlB7Rc c2TxyLAljA24FJSpcMbjBC xwYXIgUHJlcGFyZWQgMiBz lFgoEJMbXZDaPFQwMP2sD4 3xRV64LOD9kG4zxNotYAGn srTxXXGLn05bnf16u5b5TR Y9bW7exFcjREDxUDZrnwG7 xB8xLDfpRCZ1 Embedded Images (test code = 0527604695) [facility] [id number] 13:05:21EXAM: XR CHEST 1 VW HISTORY: post [...] is little different than noted yesterday. ? [facility], Radiant Results Inft User - 04/17/2020 8:06 [...] the chest is little different than noted yesterday.[facility]CBC WITH [id number] 11:18:00 Test Item Value Reference Range Interpretation [...] RDW-SD (test code = 47.8 fL 38.5-51.6 65183-1) RDW-CV (test code = 14.7 % 12.1-15.4 788-0) PLT (test code = See_Comment HH [Automated 777-3) message] The system which generated this result transmit dain reference range : 150 - 328 10*3/ ?L. The reference range was not u sed to interpret th is result as normal/abnormal . MPV (test code = 9.9 fL 9.8-13 61451-3) NRBC/100 WBC (test See_Comment [Automat ed code = 1894121169) message] The system which generated this result transmit dain reference range : 0.0 - 10.0 /100 WBCs. The reference range was not used to interpret this result as normal/abnormal . NRBC x10^3 (test code <0.01 See_Comment [Auto mated = 7001723600) message] The system which generated this result transmit dain reference range : 10*3/?L. The reference range was not used to interpret this result as normal/abnormal . GRAN MAT (NEUT) % 81.7 % (test code = 770-8) IMM GRAN % (test code 1.10 % = 7220480612) LYMPH % (test code = 9.1 % 736-9) MONO % (test code = 7.3 % 5905-5) EOS % (test code = 0.5 % 713-8) BASO % (test code = 0.3 % 706-2) GRAN MAT x10^3(ANC) 10.91 10*3/uL 1.99-6.95 H (test code = 2270429953) IMM GRAN x10^3 (test 0.15 10*3/uL 0-0.06 H code = 3610925812) LYMPH x10^3 (test code 1.21 10*3/uL 1.09-3.23 = 731-0) MONO x10^3 (test code 0.97 10*3/uL 0.36-1.02 = 742-7) EOS x10^3 (test code = 0.07 10*3/uL 0.06-0.53 711-2) BASO x10^3 (test code 0.04 10*3/uL 0.01-0.09 = 704-7) Lab Interpretation Abnormal (test code = 22988-7) [facility] CenterBAPSYCHIATRIC METABOLIC PANEL (NA, K, CL, CO2, GLUCOSE, BUN, CREATININE, CA)2020-04-17 10:49:00 Test Item Value Reference Range Interpretation Comments NA (test code = 134 mmol/L 135-145 L 3597897331) K (test code = 4.2 mmol/L 3.5-5 4232123725) CL (test code = 103 mmol/L 98-108 8996864841) CO2 TOTAL (test code = 26 mmol/L 23-31 7251753571) AGAP (test code = 2-16 7194028556) BUN (test code = 12 mg/dL 7-23 8880484395) GLUCOSE (test code = 107 mg/dL 70-110 4372299130) CREATININE (test code = 0.74 mg/dL 0.6-1.25 3000506011) CALCIUM (test code = 7.8 mg/dL 8.6-10.6 L 8432840429) eGFR Calculation mL/min/1.73m2 (Non-) (test code = 8031143442) eGFR Calculation mL/min/1.73m2 () (test code = 5576431446) GILBERTO (test code = GILBERTO) Association of [...] tests). Lab Interpretation Abnormal (test code = 09902-9) [facility]2020-08-25 10:49:00 Test Item Value Reference Range Interpretation Comments MAGNESIUM (test code = 0463492701) 2.3 mg/dL 1.7-2.4 Lab Interpretation (test code = Normal 42766-3) [facility]2020-08-25 10:49:00 Test Item Value Reference Range Interpretation Comments PHOSPHORUS (test code = 1080341036) 3.8 mg/dL 2.5-5 Lab Interpretation (test code = Normal 06247-4) [facility] CenterLDH TOTAL BODY [id number] 00:37:00 Test Item Value Reference Range Interpretation Comments LDH BF (test code = 3707 U/L 4283709198) UNSPUN BODY FLUID Light Yellow COLOR (test code = 4604349674) UNSPUN BODY FLUID Clear CLARITY (test code = 2871835319) SPUN BODY FLUID Light Yellow COLOR (test code = 3139887117) SPUN BODY FLUID Clear CLARITY (test code = 9559519181) Sediment (test code The sediment volume is 0.1 = 4888478047) mLs of the total fluid volume of 3mLs and its color is white. GILBERTO (test code = Test developed and GILBERTO) characteristics determined by [facility] Laboratory Services. [facility] 1 [id number] 00:22:53 1. ?Left lower lung zone 2 [...] compared to 817 with a possible small pneumothorax.[facility] CenterBODY FLUID DIRECT [id number] 00:10:00 Test Item Value Reference Range Interpretation Comments BF COLOR Light Yellow (test code = 3087100212) BF WBC Count See_Comment [Automated (test code = message] The sy stem 5384429165) which generated this result transmitted reference range : /?L. The refere nce range was not u sed to interpret th is result as normal/abnormal . BF RBC Count <3000 See_Comment [Automated (test code = message] The sy stem 2137409456) which generated this result transmitted reference range : /?L. The refere nce range was not u sed to interpret th is result as normal/abnormal . GILBERTO (test The reference range code = GILBERTO) and other method performance specifications have not been established for this body fluid. ?The test results must be integrated into the clinical context for interpretation. [facility] CenterBODY FLUID MANUAL [id number] 00:10:00 Test Item Value Reference Range Interpretation Comments BF SEGS (test code = 7017238401) 78 % MACROPHAGE (test code = 0944919893) 22 % #CELS CNTD (test code = 5682475876) [facility] CenterAmylase Body [id number] 00:03:00 Test Item Value Reference Range Interpretation Comments AMYLASE BF (test 313 U/L code = 4784112208) UNSPUN BODY FLUID Yellow COLOR (test code = 0634499926) UNSPUN BODY FLUID Clear CLARITY (test code = 5779687527) SPUN BODY FLUID Yellow COLOR (test code = 3222158642) SPUN BODY FLUID Clear CLARITY (test code = 1353423724) Sediment (test code The sediment volume is = 2100168602) <0.1 mLs of the total fluid volume of 1mL and its color is red. GILBERTO (test code = Test developed and GILBERTO) characteristics determined by [facility] Laboratory Services. [facility] CenterGlucose Body [id number] 00:03:00 Test Item Value Reference Range Interpretation Comments GLUCOSE BF (test 57 mg/dL code = 0727148675) UNSPUN BODY FLUID Yellow COLOR (test code = 9832548842) UNSPUN BODY FLUID Clear CLARITY (test code = 7302709848) SPUN BODY FLUID Yellow COLOR (test code = 2961148028) SPUN BODY FLUID Clear CLARITY (test code = 1637249834) Sediment (test code The sediment volume is = 2958388979) <0.1 mLs of the total fluid volume of 1mL and its color is red. GILBERTO (test code = Test developed and GILBERTO) characteristics determined by [facility] Laboratory Services. [facility] CenterTotal Protein Body [id number] 00:03:00 Test Item Value Reference Range Interpretation Comments T.PROT BF (test 3000.0 mg/dL code = 3459644312) UNSPUN BODY FLUID Yellow COLOR (test code = 0235508145) UNSPUN BODY FLUID Clear CLARITY (test code = 3206892717) SPUN BODY FLUID Yellow COLOR (test code = 0965326998) SPUN BODY FLUID Clear CLARITY (test code = 1108065225) Sediment (test code The sediment volume is = 1595856358) <0.1 mLs of the total fluid volume of 1mL and its color is red. GILBERTO (test code = Test developed and GILBERTO) characteristics determined by [facility] Laboratory Services. [facility] CenterPH, Body [id number] 23:56:00 Test Item Value Reference Range Interpretation Comments PH BF (test code = 7574300804) UNSPUN BODY FLUID COLOR Light Yellow (test code = 3377109037) UNSPUN BODY FLUID Clear CLARITY (test code = 1968601666) SPUN BODY FLUID COLOR Light Yellow (test code = 2213238393) SPUN BODY FLUID CLARITY Clear (test code = 2429404564) Sediment (test code = The sediment volume is 7589430948) 0.1 mLs of the total fluid volume of 5.5mLs and its color is white/red. [facility] CenterIR DRAINAGE BY CATHETER PERITONEAL OR [id number] 21:10:26 Successful placement of a 12 Chadian drain in the left upper quadrantcollection. Successful placement of a 14 Chadian drain in the midline air fluidcollection. Successful placement of a 10 Chadian drain in the right lower quadrant fluidcollection. [...] those actually performingthe procedure. Please refer to [facility] regarding sedation time. RADIATION DOSE: 1957 mGy - cm. TECHNIQUE: The risks, benefits and alternatives were discussed and informed consentwas obtained. Prior to beginning the procedure, [place] Protocol was usedto confirm the patient's identity and planned procedure. Maximum sterilebarriers including cap, mask, hand hygiene, sterile gloves, sterile gown,large sterile drape and cutaneous antisepsis were used. The anteriorabdominal wall was sterilely prepped, and draped. The skinoverlying the left upper, right upper, andright lower quadrants wasinfiltrated with lidocaine 2%. The targeted collection in the left upper quadrant was then accessed with d84-voqxh quadrant needle using CT guidance. A 0.035 Amplatz wire wasadvanced through the coaxial needle. The tract was serially dilated to 12French. A pigtail 12 Chadian catheter was placed in the left upper quadrantcollection. Approximately, 210 cc of purulent fluid was removed. The air-fluid collection in the mid abdomen was accessed through the rightupper quadrant. An 18 Chadian pigtail catheter was placed in this collectionunder CT guidance in a similar fashion to thedrain and left upperquadrant. Approximately, 1250 cc of purulent material were removed. The fluid collection in the right lower quadrant was also accessed in asimilar fashion. A 10 Chadian pigtail catheter was placed in this collectionunder [...] aspirated at the time of the procedure. [facility], Radiant Results Inft User - 04/16/2020 4:11 PM CDTEXAMINATION: PERCUTANEOUS ASPIRATIONHISTORY: 50-year-old male with postoperative abdominal fluid collections SEDATION: Moderate sedation was administered under the supervision of atrained nurse specialist who was independent from those actually performingthe procedure. Please refer to [facility] regarding sedation time.RADIATION DOSE: 1957 mGy - cm.TECHNIQUE: The risks, benefits and alternatives were d iscussed and informed consentwas obtained. Prior to beginning the procedure, [place] Protocol was usedto confirm the patient's identity [...] serially dilated to 12French. A pigtail 12 Chadian catheter was placed in the left upper quadrantcollection. Approximately, 210 cc of purulent fluid was removed.The air-fluid collection in the mid abdomen was accessed through the rightupper quadrant. An 18 Chadian pigtail catheter was placed in this collectionunder CT guidance in a similar fa shion to the drain and left upperquadrant. Approximately, 1250 cc of purulent material were removed.The fluid collection in the right lower quadrant was also accessed in asimilar fashion. A 10 Chadian pigtail catheter was placed in this collectionunder [...] left upper quadrantcollection.Successful placement of a 14 Chadian drain in the midline air fluidcollection.Successful placement of a 10 Chadian drain in the right lower quadrant fluidcollection.Preliminary Report Dictated by Resident: Hayden Murphy the attending radiologist I was present in the room for the entirety ofthe procedure.I, Neris Grier MD., have reviewed this study and agree with the abovereport.[facility]EROBIC)2020-04-16 19:45:00 Test Item Value Reference Range Interpretation Comments BODY FLUID CULT 2+ Bacteroides fragillis (test code = 611-4) Gram stain (test Occasional (Rare) code = 664-3) Mononuclear cells [facility]PROT[facility] / [id number] 16:38:00 Test Item Value Reference Range Interpretation Comments PROTIME PATIENT (test See_Comment H [Auto mated message] code = 5964-2) The system [employer] generated this result transmitted ref erence range: 10.1 - 1 2.6 Seconds. The reference range was not used to int erpret this result as normal/abnormal . INR (test code = 6301-6) Nor mal INR <1.1; Warfarin Therap eutic range 2.0 to 3. 0 or 2.5 to 3.5, dep ending upon the indica tions. Lab Interpretation (test Abnormal code = 58303-5) [facility] W [id number] 13:40:08Impression: 1. ?Interval placement of 4 percutaneous [...] degenerative changes and no suspicious focal lesions. [facility], Radiant Results Inft User - 04/16/2020 8:41 [...] and oral contrast seen up to the ostomy.[facility]OL[facility] PANEL (NA, K, CL, CO2, GLUCOSE, BUN, CREATININE, CA)2020-04-16 10:51:00 Test Item Value Reference Range Interpretation Comments NA (test code = 132 mmol/L 135-145 L [id number]) K (test code = 4.1 mmol/L 3.5-5 2862156270) CL (test code = 103 mmol/L 98-108 2342181592) CO2 TOTAL (test code = 24 mmol/L 23-31 9995445027) AGAP (test code = 2-16 8843098178) BUN (test code = 13 mg/dL 7-23 4900663029) GLUCOSE (test code = 132 mg/dL 70-110 H 7144151913) CREATININE (test code = 0.77 mg/dL 0.6-1.25 2023506586) CALCIUM (test code = 7.4 mg/dL 8.6-10.6 L 7004914421) eGFR Calculation mL/min/1.73m2 (Non-) (test code = 1626774915) eGFR Calculation mL/min/1.73m2 () (test code = 4034880402) GILBERTO (test code = GILBERTO) Association of [...] tests). Lab Interpretation Abnormal (test code = 42511-2) [facility]2020-08-24 10:51:00 Test Item Value Reference Range Interpretation Comments MAGNESIUM (test code = 4605355753) 2.2 mg/dL 1.7-2.4 Lab Interpretation (test code = Normal 75187-5) [facility]PH[facility]2020-08-24 10:51:00 Test Item Value Reference Range Interpretation Comments PHOSPHORUS (test code = 2262881530) 3.1 mg/dL 2.5-5 Lab Interpretation (test code = Normal 16714-8) [facility] CenterCB WITH [id number] 10:37:00 Test Item Value Reference Range Interpretation Comments WBC (test code = See_Comment H [Automated 0190-2) message] The system which generated this result transmit dain reference range : 4.20 - 10.70 10*3/?L. The reference range was not used to interpret this result as normal/abnormal . RBC (test code = See_Comment L [Automated 169-8) message] The system which generated this result [...] RDW-SD (test code = 47.4 fL 38.5-51.6 77549-7) RDW-CV (test code = 14.7 % 12.1-15.4 788-0) PLT (test code = See_Comment H [Automated 777-3) message] The system which generated this result transmit dain reference range : 150 - 328 10*3/ ?L. The reference range was not u sed to interpret th is result as normal/abnormal . MPV (test code = 10.1 fL 9.8-13 65686-8) NRBC/100 WBC (test See_Comment [Automat ed code = 1259961349) message] The system which generated this result transmit dain reference range : 0.0 - 10.0 /100 WBCs. The reference range was not used to interpret this result as normal/abnormal . NRBC x10^3 (test code <0.01 See_Comment [Auto mated = 0307984634) message] The system which generated this result transmit dain reference range : 10*3/?L. The reference range was not used to interpret this result as normal/abnormal . GRAN MAT (NEUT) % 83.0 % (test code = 770-8) IMM GRAN % (test code 1.50 % = 9893826807) LYMPH % (test code = 7.6 % 736-9) MONO % (test code = 7.3 % 5905-5) EOS % (test code = 0.3 % 713-8) BASO % (test code = 0.3 % 706-2) GRAN MAT x10^3(ANC) 11.53 10*3/uL 1.99-6.95 H (test code = 5167151531) IMM GRAN x10^3 (test 0.21 10*3/uL 0-0.06 H code = 4587516130) LYMPH x10^3 (test code 1.05 10*3/uL 1.09-3.23 L = 731-0) MONO x10^3 (test code 1.01 10*3/uL 0.36-1.02 = 742-7) EOS x10^3 (test code = 0.04 10*3/uL 0.06-0.53 L 711-2) BASO x10^3 (test code 0.04 10*3/uL 0.01-0.09 = 704-7) Lab Interpretation Abnormal (test code = 29935-6) [facility] METABOLIC PANEL (NA, K, CL, CO2, GLUCOSE, BUN, CREATININE, CA)2020-04-15 11:01:00 Test Item Value Reference Range Interpretation Comments NA (test code = 132 mmol/L 135-145 L 7812334667) K (test code = 4.7 mmol/L 3.5-5 7173526055) CL (test code = 103 mmol/L 98-108 2666879572) CO2 TOTAL (test code = 22 mmol/L 23-31 L 5542440827) AGAP (test code = 2-16 9572790089) BUN (test code = 14 mg/dL 7-23 8657542546) GLUCOSE (test code = 114 mg/dL 70-110 H 7142618465) CREATININE (test code = 0.74 mg/dL 0.6-1.25 6877999174) CALCIUM (test code = 7.9 mg/dL 8.6-10.6 L 1898607359) eGFR Calculation mL/min/1.73m2 (Non-) (test code = 5402088133) eGFR Calculation mL/min/1.73m2 () (test code = 7742292958) GILBERTO (test code = GILBETRO) Association of [...] tests). Lab Interpretation Abnormal (test code = 86293-4) [facility] Test Item Value Reference Range Interpretation Comments MAGNESIUM (test code = 1691886155) 2.1 mg/dL 1.7-2.4 Lab Interpretation (test code = Normal 65082-7) [facility] 11:01:00 Test Item Value Reference Range Interpretation Comments PHOSPHORUS (test code = 0107406940) 3.4 mg/dL 2.5-5 Lab Interpretation (test code = Normal 22124-4) [facility] [id number] 10:46:00 Test Item Value Reference Range Interpretation Comments WBC (test code = See_Comment H [Automated 0590-2) message] The system which generated this result transmit dain reference range : 4.20 - 10.70 10*3/?L. The reference range was not used to interpret this result as normal/abnormal . RBC (test code = See_Comment L [Automated 299-8) message] The system which generated this result [...] RDW-SD (test code = 47.7 fL 38.5-51.6 52024-3) RDW-CV (test code = 15.0 % 12.1-15.4 788-0) PLT (test code = See_Comment H [Automated 777-3) message] The system which generated this result transmit dain reference range : 150 - 328 10*3/ ?L. The reference range was not u sed to interpret th is result as normal/abnormal . MPV (test code = 10.4 fL 9.8-13 64994-2) NRBC/100 WBC (test See_Comment [Automat ed code = 8503502075) message] The system which generated this result transmit dain reference range : 0.0 - 10.0 /100 WBCs. The reference range was not used to interpret this result as normal/abnormal . NRBC x10^3 (test code <0.01 See_Comment [Auto mated = 5771288996) message] The system which generated this result transmit dain reference range : 10*3/?L. The reference range was not used to interpret this result as normal/abnormal . GRAN MAT (NEUT) % 85.0 % (test code = 770-8) IMM GRAN % (test code 1.10 % = 1389799193) LYMPH % (test code = 7.2 % 736-9) MONO % (test code = 6.4 % 5905-5) EOS % (test code = 0.1 % 713-8) BASO % (test code = 0.2 % 706-2) GRAN MAT x10^3(ANC) 14.87 10*3/uL 1.99-6.95 H (test code = 3145919109) IMM GRAN x10^3 (test 0.20 10*3/uL 0-0.06 H code = 5618760117) LYMPH x10^3 (test code 1.25 10*3/uL 1.09-3.23 = 731-0) MONO x10^3 (test code 1.11 10*3/uL 0.36-1.02 H = 742-7) EOS x10^3 (test code = <0.03 0.06-0.53 L 711-2) BASO x10^3 (test code 0.03 10*3/uL 0.01-0.09 = 704-7) Lab Interpretation Abnormal (test code = 42643-4) [facility] METABOLIC PANEL (NA, K, CL, CO2, GLUCOSE, BUN, CREATININE, CA)2020-04-14 12:15:00 Test Item Value Reference Range Interpretation Comments NA (test code = 134 mmol/L 135-145 L 2996057056) K (test code = 4.9 mmol/L 3.5-5 8975164040) CL (test code = 105 mmol/L 98-108 2863034004) CO2 TOTAL (test code = 23 mmol/L 23-31 1725629967) AGAP (test code = 2-16 0836632520) BUN (test code = 16 mg/dL 7-23 7121494062) GLUCOSE (test code = 102 mg/dL 70-110 0045903205) CREATININE (test code = 0.82 mg/dL 0.6-1.25 7565528496) CALCIUM (test code = 7.9 mg/dL 8.6-10.6 L 3147665632) eGFR Calculation mL/min/1.73m2 (Non-) (test code = 6162175996) eGFR Calculation mL/min/1.73m2 () (test code = 7520841950) GILBERTO (test code = GILBERTO) Association of [...] tests). Lab Interpretation Abnormal (test code = 55862-3) [facility] 12:15:00 Test Item Value Reference Range Interpretation Comments MAGNESIUM (test code = 9785957085) 2.1 mg/dL 1.7-2.4 Lab Interpretation (test code = Normal 97165-5) [facility] 12:15:00 Test Item Value Reference Range Interpretation Comments PHOSPHORUS (test code = 6540219240) 4.2 mg/dL 2.5-5 Lab Interpretation (test code = Normal 23928-6) [facility] [id number] 11:49:00 Test Item Value Reference Range Interpretation Comments WBC (test code = See_Comment H [Automated 7394-2) message] The system which generated this result transmit dain reference range : 4.20 - 10.70 10*3/?L. The reference range was not used to interpret this result as normal/abnormal . RBC (test code = See_Comment L [Automated 386-8) message] The system which generated this result [...] RDW-SD (test code = 48.1 fL 38.5-51.6 27870-6) RDW-CV (test code = 15.1 % 12.1-15.4 788-0) PLT (test code = See_Comment H [Automated 777-3) message] The system which generated this result transmit dain reference range : 150 - 328 10*3/ ?L. The reference range was not u sed to interpret th is result as normal/abnormal . MPV (test code = 10.7 fL 9.8-13 10832-8) NRBC/100 WBC (test See_Comment [Automat ed code = 2422748024) message] The system which generated this result transmit dain reference range : 0.0 - 10.0 /100 WBCs. The reference range was not used to interpret this result as normal/abnormal . NRBC x10^3 (test code <0.01 See_Comment [Auto mated = 5341142143) message] The system which generated this result transmit dain reference range : 10*3/?L. The reference range was not used to interpret this result as normal/abnormal . GRAN MAT (NEUT) % 84.4 % (test code = 770-8) IMM GRAN % (test code 1.10 % = 7349156620) LYMPH % (test code = 7.4 % 736-9) MONO % (test code = 6.8 % 5905-5) EOS % (test code = 0.1 % 713-8) BASO % (test code = 0.2 % 706-2) GRAN MAT x10^3(ANC) 13.45 10*3/uL 1.99-6.95 H (test code = 9150259777) IMM GRAN x10^3 (test 0.18 10*3/uL 0-0.06 H code = 4097979934) LYMPH x10^3 (test code 1.18 10*3/uL 1.09-3.23 = 731-0) MONO x10^3 (test code 1.09 10*3/uL 0.36-1.02 H = 742-7) EOS x10^3 (test code = <0.03 0.06-0.53 L 711-2) BASO x10^3 (test code 0.03 10*3/uL 0.01-0.09 = 704-7) Lab Interpretation Abnormal (test code = 91941-4) [facility] TOTAL BODY [id number] 01:27:00 Test Item Value Reference Range Interpretation Comments LDH BF (test code = >6450 U/L 2602444163) UNSPUN BODY FLUID Yellow COLOR (test code = 6137729587) UNSPUN BODY FLUID Turbid CLARITY (test code = 4095882675) SPUN BODY FLUID Yellow COLOR (test code = 1067482968) SPUN BODY FLUID Clear CLARITY (test code = 7473301203) Sediment (test code The sediment volume is 0.1 = 9884890066) mLs of the total fluid volume of 5mLs and its color is Red/White. GILBERTO (test code = Test developed and GILBERTO) characteristics determined by [facility] Laboratory Services. [facility] METABOLIC PANEL (NA, K, CL, CO2, GLUCOSE, BUN, CREATININE, CA)2020-04-14 00:15:00 Test Item Value Reference Range Interpretation Comments NA (test code = 132 mmol/L 135-145 L 1223580390) K (test code = 5.3 mmol/L 3.5-5 H 0017928483) CL (test code = 105 mmol/L 98-108 4883438961) CO2 TOTAL (test code = 20 mmol/L 23-31 L 5278788537) AGAP (test code = 2-16 6893010417) BUN (test code = 14 mg/dL 7-23 0900781322) GLUCOSE (test code = 280 mg/dL 70-110 H 0147718438) CREATININE (test code = 0.75 mg/dL 0.6-1.25 9436920414) CALCIUM (test code = 7.4 mg/dL 8.6-10.6 L 7923790034) eGFR Calculation mL/min/1.73m2 (Non-) (test code = 3308332252) eGFR Calculation mL/min/1.73m2 () (test code = 7777461398) GILBERTO (test code = GILBERTO) Association of [...] tests). Lab Interpretation Abnormal (test code = 86288-2) [facility] WITHOUT [id number] 00:01:00 Test Item Value Reference Range Interpretation Comments WBC (test code = 6690-2) See_Comment H [A utomated message] The system [employer] generated this result transmit dain reference range : 4.20 - 10.70 10*3/?L. The reference range was not used to interpret this result as normal/abnormal . RBC (test code = 789-8) See_Comment L [Au tomated message] The system [employer] generated this result transmit dain reference range [...] See_Comment H [Au tomated message] The system [employer] generated this result transmit dain reference range : 150 - 328 10*3/?L. The reference range was not used to interpret this result as normal/abnormal . MPV (test code = 10.2 fL 9.8-13 48294-0) RDW-CV (test code = 15.3 % 12.1-15.4 788-0) RDW-SD (test code = 49.1 fL 38.5-51.6 70604-4) NRBC x10^3 (test code = <0.01 See_Comment [Au tomated message] 8279695384) The system [employer] generated this result transmit dain reference range : 10*3/?L. The reference range was not used to interpret this result as normal/abnormal . NRBC/100 WBC (test code See_Comment [Au tomated message] = 1317972226) The system [facility] generated this result transmit dain reference range : 0.0 - 10.0 /100 WBC s. The reference r meredith was not used to interpret this result as normal/abnormal . IPF % (test code = 3033374133) Lab Interpretation (test Abnormal code = 12477-3) [facility] [id number] 23:40:00 Test Item Value Reference Range Interpretation Comments BF COLOR Yellow (test code = 5619923856) BF WBC Count See_Comment [Automated (test code = message] The sy stem 6076284469) which generated this result transmitted reference range : /?L. The refere nce range was not u sed to interpret th is result as normal/abnormal . BF RBC Count <3000 See_Comment [Automated (test code = message] The sy stem 1445350832) which generated this result transmitted reference range : /?L. The refere nce range was not u sed to interpret th is result as normal/abnormal . GILBERTO (test The reference range code = GILBERTO) and other method performance specifications have not been established for this body fluid. ?The test results must be integrated into the clinical context for interpretation. [facility] MANUAL [id number] 23:40:00 Test Item Value Reference Range Interpretation Comments BF SEGS (test code 99 % = 1717391736) BF LYMPHS (test 1 % code = 7838744403) #CELS CNTD (test code = 9409722764) GILBERTO (test code = Possible intracellular GILBERTO) bacteria. [facility]GLUCOSE BODY [id number] 23:17:00 Test Item Value Reference Range Interpretation Comments GLUCOSE BF (test <20 mg/dL code = 4417856765) UNSPUN BODY FLUID Yellow COLOR (test code = 1895496834) UNSPUN BODY FLUID Turbid CLARITY (test code = 8245158263) SPUN BODY FLUID Yellow COLOR (test code = 3183900262) SPUN BODY FLUID Clear CLARITY (test code = 8051997952) Sediment (test code The sediment volume is 0.1 = 7826035778) mLs of the total fluid volume of 5mLs and its color is Red/White. GILBERTO (test code = Test developed and GILBERTO) characteristics determined by [facility] Laboratory Services. [facility] CenterT.PROTEIN BODY [id number] 22:52:00 Test Item Value Reference Range Interpretation Comments T.PROT BF (test 3000.0 mg/dL code = 0764069603) UNSPUN BODY FLUID Yellow COLOR (test code = 7715612285) UNSPUN BODY FLUID Turbid CLARITY (test code = 7444607104) SPUN BODY FLUID Yellow COLOR (test code = 0451316415) SPUN BODY FLUID Clear CLARITY (test code = 8922175042) Sediment (test code The sediment volume is 0.1 = 7023825903) mLs of the total fluid volume of 5mLs and its color is Red/White. GILBERTO (test code = Test developed and GILBERTO) characteristics determined by [facility] Laboratory Services. [facility] CenterURINE [id number] 19:44:00 Test Item Value Reference Range Interpretation Comments URINE CULTURE (test No aerobic growth (< code = 630-4) 1000 CFU/mL) [facility] NEGATIVE BLOOD PATHOGENS DNA [id number] 13:23:00 Test Item Value Reference Range Interpretation Comments Enterobacter species Positive Negative A (test code = 35315-7) GILBERTO (test code = GILBERTO) See blood culture result for additional information. ?Testing included eight identification and six resistance marker targets. Lab Interpretation Abnormal (test code = 79828-3) [facility] WITH [id number] 12:43:00 Test Item Value Reference Range Interpretation [...] RDW-SD (test code = 49.8 fL 38.5-51.6 64924-1) RDW-CV (test code = 15.3 % 12.1-15.4 788-0) PLT (test code = See_Comment H [Automated 777-3) message] The system which generated this result transmit dain reference range : 150 - 328 10*3/ ?L. The reference range was not u sed to interpret th is result as normal/abnormal . MPV (test code = 10.7 fL 9.8-13 17630-6) NRBC/100 WBC (test See_Comment [Automat ed code = 7638261592) message] The system which generated this result transmit dain reference range : 0.0 - 10.0 /100 WBCs. The reference range was not used to interpret this result as normal/abnormal . NRBC x10^3 (test code <0.01 See_Comment [Auto mated = 5630525718) message] The system which generated this result transmit dain reference range : 10*3/?L. The reference range was not used to interpret this result as normal/abnormal . GRAN MAT (NEUT) % 81.3 % (test code = 770-8) IMM GRAN % (test code 1.40 % = 5201553370) LYMPH % (test code = 8.0 % 736-9) MONO % (test code = 8.9 % 5905-5) EOS % (test code = 0.2 % 713-8) BASO % (test code = 0.2 % 706-2) GRAN MAT x10^3(ANC) 10.74 10*3/uL 1.99-6.95 H (test code = 7206385614) IMM GRAN x10^3 (test 0.18 10*3/uL 0-0.06 H code = 1703219197) LYMPH x10^3 (test code 1.06 10*3/uL 1.09-3.23 L = 731-0) MONO x10^3 (test code 1.17 10*3/uL 0.36-1.02 H = 742-7) EOS x10^3 (test code = <0.03 0.06-0.53 L 711-2) BASO x10^3 (test code <0.03 0.01-0.09 = 704-7) Lab Interpretation Abnormal (test code = 13352-9) [facility]BAPSYCHIATR[facility] METABOLIC PANEL (NA, K, CL, CO2, GLUCOSE, BUN, CREATININE, CA)2020-04-13 11:57:00 Test Item Value Reference Range Interpretation Comments NA (test code = 134 mmol/L 135-145 L 4568535361) K (test code = 4.6 mmol/L 3.5-5 9617078455) CL (test code = 106 mmol/L 98-108 2290991189) CO2 TOTAL (test code = 23 mmol/L 23-31 0391210545) AGAP (test code = 2-16 8290604232) BUN (test code = 14 mg/dL 7-23 8815925680) GLUCOSE (test code = 106 mg/dL 70-110 3165677386) CREATININE (test code = 0.84 mg/dL 0.6-1.25 3975890436) CALCIUM (test code = 7.7 mg/dL 8.6-10.6 L 7987174664) eGFR Calculation mL/min/1.73m2 (Non-) (test code = 9840667886) eGFR Calculation mL/min/1.73m2 () (test code = 1553103518) GILBERTO (test code = GILBERTO) Association of [...] tests). Lab Interpretation Abnormal (test code = 05614-5) [facility] Test Item Value Reference Range Interpretation Comments MAGNESIUM (test code = 2771473572) 2.1 mg/dL 1.7-2.4 Lab Interpretation (test code = Normal 09341-8) [facility] 11:57:00 Test Item Value Reference Range Interpretation Comments PHOSPHORUS (test code = 8536903125) 3.4 mg/dL 2.5-5 Lab Interpretation (test code = Normal 60792-9) [facility]CT ABDOMEN PELVIS W [id number] 00:22:08 1. ?Multiple intraperitoneal collections as detailed [...] communication attempts 0Preliminary Report Dictated by Resident: Mathieu Adame M Chapa,MD., have reviewed this study and agree with the abovereport. [facility]URINALYSIS2020-08-20 23:20:00 Test Item Value Reference Range Interpretation Comments APPEARANCE (test code = Clear Clear 0301002753) COLOR (test code = Yellow Yellow 2238859329) PH (test code = 4.8-8.0 3970278065) SP GRAVITY (test code = 1.003-1.030 8441198868) GLU U QUAL (test code = Normal Normal 8227507997) BLOOD (test code = Negative Negative 0545209968) KETONES (test code = Negative Negative 0863195466) PROTEIN (test code = 30 mg/dL Negative A 2887-8) UROBILIN (test code = Normal Normal 8602559935) BILIRUBIN (test code = Negative Negative 5254443294) NITRITE (test code = Negative Negative 7916859716) LEUK ROGER (test code = Negative Negative 0552600489) RBC/HPF (test code = See_Comment [Autom ated message] 8703111907) The system [employer] generated this result transmitted ref erence range: 0 - 3 HP F. The reference range was not used to int erpret this result as normal/abnormal . WBC/HPF (test code = <1 See_Comment [Autom ated message] 3780228630) The system [employer] generated this result transmitted ref erence range: 0 - 5 HP F. The reference range was not used to int erpret this result as normal/abnormal . BACTERIA (test code = Negative Negative 2067684067) MUCOUS (test code = Slight Negative LPF A 9607288772) SQ EPITH (test code = See_Comment [Auto mated message] 0149167483) The system [employer] generated this result transmitted ref erence range: <=2 HPF. The reference range was not used to int erpret this result as normal/abnormal . Lab Interpretation (test Abnormal code = 71972-4) [facility] [id number] 12:08:00 Test Item Value Reference Range Interpretation [...] RDW-SD (test code = 48.9 fL 38.5-51.6 83428-9) RDW-CV (test code = 15.4 % 12.1-15.4 788-0) PLT (test code = See_Comment [Automated 777-3) message] The sy stem which generated this result transmitted reference range : 150 - 328 10*3/ ?L. The reference r meredith was not used to interpret this result as normal/abnormal . MPV (test code = 11.2 fL 9.8-13 84166-3) NRBC/100 WBC (test See_Comment [Automat ed code = 6059873000) message] The system which generated this result transmitted reference range : 0.0 - 10.0 /100 WBCs. The refer ence range was not u sed to interpret th is result as normal/abnormal . NRBC x10^3 (test code <0.01 See_Comment [Auto mated = 4215623009) message] The s ystem which generated this result transmitted reference range : 10*3/?L. The reference range was not used to interpret this result as normal/abnormal . GRAN MAT (NEUT) % 79.9 % (test code = 770-8) IMM GRAN % (test code 1.30 % = 5466225946) LYMPH % (test code = 7.4 % 736-9) MONO % (test code = 11.0 % 5905-5) EOS % (test code = 0.2 % 713-8) BASO % (test code = 0.2 % 706-2) GRAN MAT x10^3(ANC) 9.56 10*3/uL 1.99-6.95 H (test code = 2888688390) IMM GRAN x10^3 (test 0.15 10*3/uL 0-0.06 H code = 1207473543) LYMPH x10^3 (test code 0.89 10*3/uL 1.09-3.23 L = 731-0) MONO x10^3 (test code 1.32 10*3/uL 0.36-1.02 H = 742-7) EOS x10^3 (test code = <0.03 0.06-0.53 L 711-2) BASO x10^3 (test code <0.03 0.01-0.09 = 704-7) Lab Interpretation Abnormal (test code = 60227-3) [facility] METABOLIC PANEL (NA, K, CL, CO2, GLUCOSE, BUN, CREATININE, CA)2020-04-12 10:43:00 Test Item Value Reference Range Interpretation Comments NA (test code = 133 mmol/L 135-145 L 5936057498) K (test code = 4.3 mmol/L 3.5-5 1959102255) CL (test code = 104 mmol/L 98-108 7750494859) CO2 TOTAL (test code = 22 mmol/L 23-31 L 0517420669) AGAP (test code = 2-16 4959781286) BUN (test code = 20 mg/dL 7-23 5311589077) GLUCOSE (test code = 108 mg/dL 70-110 8346709661) CREATININE (test code = 0.77 mg/dL 0.6-1.25 2122914599) CALCIUM (test code = 8.1 mg/dL 8.6-10.6 L 7709700143) eGFR Calculation mL/min/1.73m2 (Non-) (test code = 8572744976) eGFR Calculation mL/min/1.73m2 () (test code = 6062875266) GILBERTO (test code = GILBERTO) Association of [...] tests). Lab Interpretation Abnormal (test code = 92371-5) [facility] 10:43:00 Test Item Value Reference Range Interpretation Comments MAGNESIUM (test code = 8512882066) 2.0 mg/dL 1.7-2.4 Lab Interpretation (test code = Normal 37117-3) [facility] 10:43:00 Test Item Value Reference Range Interpretation Comments PHOSPHORUS (test code = 2170188058) 4.3 mg/dL 2.5-5 Lab Interpretation (test code = Normal 80784-2) [facility] CenterBLOOD CULTURE [id number] 04:01:00 Test Item Value Reference Range Interpretation Comments Blood Culture-Aerobic No organisms No growth Previo us (test code = 35468-8) isolated prelim inary verified result was Culture [...] Culture-Anaerobic isolated preliminar y (test code = 21858-3) verifi ed result was Culture In Progress on 04/07/2020 at 09 24 CDTPrevious preliminary verified result was No growth a t 24 hours on 04/07/2020 at 15 09 CDTPrevious preliminary verified result was No growth a t 48 hours on 04/08/2020 at 15 09 CDTPrevious preliminary verified result was No growth a t 72 hours on 04/09/2020 at 15 09 CDT Lab Interpretation Normal (test code = 85852-4) [facility] [id number] 04:01:00 Test Item Value Reference Range Interpretation Comments Blood Culture-Aerobic No organisms No growth Previo us (test code = 26387-2) isolated prelim inary verified result was Culture [...] Culture-Anaerobic isolated preliminar y (test code = 83788-5) verifi ed result was Culture In Progress [...] CDT Lab Interpretation Normal (test code = 85684-3) [facility]BAPSYCHIATR[facility]ABOLIC PANEL (NA, K, CL, CO2, GLUCOSE, BUN, CREATININE, CA)2020-04-11 10:13:00 Test Item Value Reference Range Interpretation Comments NA (test code = 138 mmol/L 135-145 8065721882) K (test code = 3.9 mmol/L 3.5-5 1044789243) CL (test code = 106 mmol/L 98-108 9444301469) CO2 TOTAL (test code = 27 mmol/L 23-31 3278481786) AGAP (test code = 2-16 5376819049) BUN (test code = 24 mg/dL 7-23 H 6534123380) GLUCOSE (test code = 97 mg/dL 70-110 3876673856) CREATININE (test code = 0.63 mg/dL 0.6-1.25 1103432167) CALCIUM (test code = 8.1 mg/dL 8.6-10.6 L 5631195820) eGFR Calculation mL/min/1.73m2 (Non-) (test code = 2065489346) eGFR Calculation mL/min/1.73m2 () (test code = 7041044426) GILBERTO (test code = GILBERTO) Association of [...] tests). Lab Interpretation Abnormal (test code = 40465-2) [facility] 10:13:00 Test Item Value Reference Range Interpretation Comments MAGNESIUM (test code = 9389446972) 1.8 mg/dL 1.7-2.4 Lab Interpretation (test code = Normal 59049-7) [facility]2020-[facility]-19 10:13:00 Test Item Value Reference Range Interpretation Comments PHOSPHORUS (test code = 9769117769) 3.6 mg/dL 2.5-5 Lab Interpretation (test code = Normal 33579-6) [facility]CBC WITH [id number] 10:06:00 Test Item Value Reference Range Interpretation [...] RDW-SD (test code = 48.9 fL 38.5-51.6 01865-3) RDW-CV (test code = 15.3 % 12.1-15.4 788-0) PLT (test code = See_Comment [Automated 777-3) message] The sy stem which generated this result transmitted reference range : 150 - 328 10*3/ ?L. The reference r meredith was not used to interpret this result as normal/abnormal . MPV (test code = 11.7 fL 9.8-13 32786-7) NRBC/100 WBC (test See_Comment [Automat ed code = 2220926207) message] The system which generated this result transmitted reference range : 0.0 - 10.0 /100 WBCs. The refer ence range was not u sed to interpret th is result as normal/abnormal . NRBC x10^3 (test code <0.01 See_Comment [Auto mated = 5816311185) message] The s ystem which generated this result transmitted reference range : 10*3/?L. The reference range was not used to interpret this result as normal/abnormal . GRAN MAT (NEUT) % 75.6 % (test code = 770-8) IMM GRAN % (test code 1.10 % = 3420338293) LYMPH % (test code = 10.5 % 736-9) MONO % (test code = 11.0 % 5905-5) EOS % (test code = 1.5 % 713-8) BASO % (test code = 0.3 % 706-2) GRAN MAT x10^3(ANC) 5.56 10*3/uL 1.99-6.95 (test code = 2271482480) IMM GRAN x10^3 (test 0.08 10*3/uL 0-0.06 H code = 1281059107) LYMPH x10^3 (test code 0.77 10*3/uL 1.09-3.23 L = 731-0) MONO x10^3 (test code 0.81 10*3/uL 0.36-1.02 = 742-7) EOS x10^3 (test code = 0.11 10*3/uL 0.06-0.53 711-2) BASO x10^3 (test code <0.03 0.01-0.09 = 704-7) TOXIC CHANGES (test Present A code = 803-7) Lab Interpretation Abnormal (test code = 82773-5) [facility] [id number] 22:00:00 Test Item Value Reference Range Interpretation Comments Case Report (test code Surgical Pathology ? ? = [id number]) ?Case: [id number] ? Authorizing Provider: ?Juventino Mccabe MD ? Collected: ? 04/06/2020 1012 ?Ordering Location: ? ? [facility] OR ? Received: ?04/06/2020 1146 ? Department ? Pathologist: ? Misael, MD Shaneka ? Specimen: ? ?SOFT TISSUE, OTHER, ileo rectal anastamosis ? Final Diagnosis (test g1dvxRYkIHSzk4esXLInxG code = 3090475079) FuZzEwMzNcZnRuYmpcdWMx BPdtqnKkMMpbr7QvH3KrHd AwMFxhbnNpXGRlZmxhbmcx HQVcSZU9pwUsGLSmSOznEG EyIOcuBo6keCHenUvhNmMs SDLif8xsauONbmahvZc7a8 xrUUAvUhD9bCEaHXovY0io ypUktZCqBHFsOAl6tG91QQ FxfF9ccQOfDClotiCwVhC2 VBjxAIEmZaL5WZGxyPXoQY GxO3drYGRlZZbbFVKpCZmc vRQhWZG4wUslq0H5oIRudW LzzMvdAkKzNeEvXFGSi2Jx LXm1kMcyV8VcEXPgGaG5lX QgUGFyYWdyYXBoIEZvbnQ7 bA82XQeuuhD6kYMps4Hld7 1xs934cV2dpQOfCZK0BZSh SRGwtQFmYCLtYNY2OHIboX AlB4miXOjnER9vxkjjPTZ9 MFxtYXJndDcyMFxtYXJnYj KxaOJeVTLdrAefOIcgi834 FHE4ToKfBE3vY1Uiq4M0rC 9maXRcZGVmdGFiNzIwXGZv oc1ypBQqHXbte5CxZRI4fr H0uVKzqNNpIQNhBB98Kwxk c9AqYbrfTOV2NHFdeaIny1 Fhk2keLbPrunQuF9tcF0Va ZHJoZWFkXHBnYnJkcmZvb3 Ona0UglGBeeSi6b4ulMZVo BCVqhEmvg5ryWJA1YDFgS7 N8eXZxl4tqRLsvMUTfqNR9 cxKjKGUkdEDlN5QkxD2dRG jsDX9biha2j9suLrHlKJ7m edfym4dzLGfyLNUrUOS6Vs HeQMLgi8DjmksmDsJjk1Ch wOEvPEbiO42kk288CBJodu FjK0lnwZPaeiixbABfuevz NVmgvmC9GRJgQHKoDYcqEG YxXGZzMjBcbGFuZzEwMzNc aGljaFxmMVxkYmNoXGYxXG xiQ9zdVsDsPjIzZUvjCXAg HM0nY50RD30oVBsSOV9nSe THPMMIHNKYVCPQZ64FX3wK CVAFKNEjLKUPP02BEgRDCZ KIOZRKO0YRG375UNZtcxYu QUKyKP3iDgWRWMRHISGIUP EVQTFGYRDXNOTNKXTeP3oP UYPISaAZF68UYyAHTHyQKh kYLO5NLKbZAckkWUpUAKHK LIbNFjmkU4JUU7FDIVeYEV FORFxwYXIgICAgICAgICBQ FGNNFY0YDVIXQ6swAZEoMH WlBDOzFYOHE3JJSEhHNaLA EOKQGA8MUGWKIRHZJHZIVQ VccGFyXHBhclxwbGFpblxm MVxmczIyXGxhbmcxMDMzXG ksX1roAqMkJCGneYymNOit h6BePXIrSJKhPowhogMvOO TaT8vguCptPYocDDF3DA9i YS5WU8nAEXZ1UuL2JkOoYh JsIGP7HsBtBM8zoNuqrH4a ClSjNnVdDTacZA1wMAFlO8 sfqWPcJIHdGAPsM3mqNhDo jE4eyZqmZDyhowQwDQNbcZ BxUIUiob42HBT4NnAdt4Y1 RKOpWpEiKAToVE5fdOcvGP YnSA1jXHBcO4uvfF3dbyr6 UsCfKMQrVuE3IQTdqxS3Gj z1NIRtDAsbq7yhq1GcM9Hk uCFkaIg9a0cyNIObJcC3aF OnPVndR3wyduNgvFSjWIDv VWf1qPcrIvIhHKGox3zvnn BcZmNoYXJzZXQwIENhbGli wvi1oU03FSHayQ5apHZlDE ntjkJjVeN3PXkrETQnScK0 STSofZEkCRHxS8yaMVIgVF ckVCKeWAirfDWvUNU8eYxa i8G5qOJsmFXxjRsmHmCzXf JfQZHQc5EyHKq2nHuxE4Qg CAChKbY7nXDuKNHlFHmvQS PkWUZflnF5qZ39SCsjmjV9 sEGpl6Nrm97bx557aB1mdG RuTGX7JIIyPRVykYFjKLPv AXN4GBKqhQYmP7tbIOEiHW 1srxirNTmtRQuiLLXtjFF2 AWMskYQpU8JxWEIfVMccGF Evqnd8DnHnDn2tkEOguKhv DAiwl1lmk9vorHZmLoo7VP AtXfMiDofsKDghs7Fah8hk QOUqfz6bJEN6xFDcvQthk5 X6aWKnEBMrhIPjvcOlNANo KeL3GJslGO9wws33KDYnXY G0an8dbPIhrCinybJrlWJw JBtbR0JoSNGga419IYRwJ6 OmNLUcy8Y1xiBgXfRzSDWo kOA6emT3WZClIOh1vQXgpa S3obCcfSJcE2xsiQ0gWMOr CO1ycmvml7ubOEaoMEdrNO OhlPD0ieZ3PDSpxJTfD2Kf kI5vJOIxMSedRCAwtjg6Xt WlIg8qrWImoUfpLKjqOsqo YWdlXHBnbmNvbnRccGduZG VjXHBsYWluXHBsYWluXGYw IPGhElBicPtedWqihJ2kZf ZlVaWeAMmhAK6nVUUxE2tv eWDeAUFrJHFbO8juNxBrkL 9jaFxmMVxjZjJcZnMyMFxw YXIgSSBoYXZlIHBlcnNvbm OmiGxfbqV3xKT3UHDpVRtt IROgXABlwZVjwe2rgIcmNP OySP7rDDAdfeMwVKkytFlk EFrpOOW7TCEcnKVhrUFenL FkZSBieSByZXNpZGVudHMs SBEjuBplg0Vvq3CwuJU3jQ 7go3bcu3PrGGNkvUJ8MG06 uiQ9mP6fKZKzVI1wAUBwMN 6grJLrpJKjZDRwx70dgSvn cyByZXBvcnQuXHBsYWluXG YyXGZzMjhcbGFuZzEwMzNc aGljaFxmMlxkYmNoXGYyXG yuV5iyOhNaDlXaSZurKFO4 fQ== Clinical Information Abdominal distention (test code = [R14.0] 9775827999) Gross Description (test y5fkpXMdVELrnSEnRtZrTA code = 1917546918) MuWNEvp2bdMQNchWFnKvSb MzNcZnRuYmpcdWMxXGRlZm Shl9kds164oPKjw7psZKZg XxE7vFDsXVNowHQyO761HT NlGBiuu4xnh3CdMGHbnZDx l7P5YCBCmgxvlIv6cAgbZ0 5qx7Z2RjqxH9plPKUvBYnc PDTiQKeppMDiZSV0RXSiRX W1RDtcvqWgmmH2TGzbsXAj ElR7XGi2x9objLowCSZgKJ C3i8noEFikcxFbGK7sxw0m xGh9w6uljxTaWIUtJENysQ ZFDOBwX2ZwoPhjAz1giKr8 gSvbWlzkTRP4Cdn6PF5xur 75rck9gNuzGJQmkrvnQgF8 ZTtwZETdpnhjJIb1UYoaIP HrkZLbWUEydUYnA2GqQRbm SF7ooeg3JaZcTR7qmlugWA buNDQfGSW2WdUaRBEal9Tk yuizNcTdmo6puz11RBG6i1 NohBbsMXS5EAY1PzHeDv7f fSZkBINzKT5cYzUztBWjSG Kxly42yYmnTCuzpxUyvI4e ToCyHLZojOVuZXFePR1jpR UkABEsvU7hrxhqYAVkEdBq fxrfTNPivAocxvJrCr4giI ouCTB1GSspV3hdiX5gQmL2 PBzwK7oqfX3iGKz6CPqxdB U4XRGsfZ9lIJ9dwfkxy8hq WJX9FYscBFNcfuE4dcZfOX DskTBnM3TumC28NnAnrBXu U3BabQ2yWKjmTWUzidn3Lh MiCd4amKFihZZ6ZXxyEdmh YWdlXHBnbmNvbnRccGduZG VjXHBsYWluXHBsYWluXGYw SBCyWxFnzIaqdZebnD1iBx BcZnMyMFxwbGFpblxmMFxm czIwIFNwZWNpbWVuIEEgcm KbLDp8FYErUgGis9bpjBUf CNqqPVU2yQAlEOZzHLAiSP WxZM06N7CpglTtXGrvRRhg xoWjEsFgCKEns16kmFP4oA UpiPYlMHlwGWZjWFOoC7Ip bUKxavNntF3lv0JsgvLeVN 0gMPFddaJax2HfVZ9jMLSx b5SmfZBhbVPwALVrw2HttE dntfIbOyZjxM2yLQJhbxNn b3vghKOxOQ11NRObSOxeIN yxabc3gNHspvNjplGaS1hk MfBpkk5qGIZfKTknrAOptj utMGovkrNoKPJ2SiAbWBpj WERasQncbB6vXhBpLoOdCL O3OaAaR71rZJlggJG5MEZc PONhccZax6MueqFkh8e8hB WkaMOrGFQtT8NgtZQhdnIq mR7tx1Arut4zCHHCmAKei0 Pjc4VqmHRlRGQcp8KuuUso fgXvXB1hNYrdMS2zFSGzOR cgtSXmos28EGSoUHMmzUsn NQEtDWY9y70pz6nrOONrhM XiFJ9bTHH3sYDpnaVtrIE3 lFMbEoPrVJmvbTC8FHPlVP zjGAIYpYVrtSOtGh3zTLSt i42ieZYyoD8iXUTnHVGgXy GnY27cKqYqoLO4dQJviNkx IZxrzSVpQ2uwUJFnKRDaTv SeXyAyuFG7mWDborRpaQNq ZB4ddaidzn4tDTkaEAB3st gzX5ZjSV2vuvyystEgQSQz BT0qHI8oQRBfrxCuyOxfLU FjHWVqjHQeWCbqJZncY1ti DXDtivX1BPEvpC1pOTXwwO AuVl3vDYOau42pg7a1DNM7 qYVvrG8khYwyVKGfNRE8d2 1rl3roHWN6MYXkDBLxeH5a NtLiPuAqQDssZPCsNW5xRS SpZTRucAZvq5JjnIRtmD7x WGTebmMhdjQiFLLqeDD6u4 DwIUBibLEoz8QxPHC0hJYb YSHchmLbKFVhPWZaIA0ekT QwGHTyyLAxg6VxuAX0cMTu ZSAhD5Kkb10yGNUeQINemJ PrnZH6LEDjRFSzNQNqnNnq kX8kXbVtDoDkIKq8LTAwJU FdEpn4MBRoIPkbNMFgTWAu MjAgQTQuXHBhclxwYXIgU2 PzeKikjwZvl3JqEcvnJYLq YCY4EGEZUZA6ERsun6ZfA0 jxNPnftBMgE1jhYJDaVCUo IHFonmUofQj3DOnyXMQhZW X7YQJYyXMkoLVefITndMYd kMPeIIHtwE9fIBUkmATrz5 ZouJZ1wQGvCKAcjlLVAttb SVTyenWfnaE3kK4bYOHoeJ NlpRCrBAQ2TdLkON6aftDq gLBtBDEkTTQ6vU6wQZ6xFE MaVLqkMHEdd1FfOVStXXHn BBTkteFjmLz3TLldDTGkyH EuFUWjluRjlRteiH6iBaQi ZnMyMFxwbGFpblxmMVxmcz ErZQYywMnpELDctCZzCB2V RReIZXPbe1wxN7vxoEHJm3 Hjo2VofxUoTIToWIfzUEGu XGZzMjBccGFyXHFsXHBsYW yuAITfBACzUfVvkHtuvW4l ZjBcZnMyMFxwYXJccGFyfQ == Embedded Images (test code = 8698378751) [facility] WITH [id number] 11:29:00 Test Item Value Reference Range Interpretation [...] RDW-SD (test code = 48.8 fL 38.5-51.6 25354-9) RDW-CV (test code = 15.2 % 12.1-15.4 788-0) PLT (test code = See_Comment L [Automated 777-3) message] The sy stem which generated this result transmitted reference range : 150 - 328 10*3/ ?L. The reference r meredith was not used to interpret this result as normal/abnormal . MPV (test code = 11.6 fL 9.8-13 59577-2) NRBC/100 WBC (test See_Comment [Automat ed code = 1689586301) message] The system which generated this result transmitted reference range : 0.0 - 10.0 /100 WBCs. The refer ence range was not u sed to interpret th is result as normal/abnormal . NRBC x10^3 (test code <0.01 See_Comment [Auto mated = 6732986768) message] The s ystem which generated this result transmitted reference range : 10*3/?L. The reference range was not used to interpret this result as normal/abnormal . GRAN MAT (NEUT) % 79.1 % (test code = 770-8) IMM GRAN % (test code 0.50 % = 4049137018) LYMPH % (test code = 11.0 % 736-9) MONO % (test code = 7.8 % 5905-5) EOS % (test code = 1.4 % 713-8) BASO % (test code = 0.2 % 706-2) GRAN MAT x10^3(ANC) 4.67 10*3/uL 1.99-6.95 (test code = 5204550842) IMM GRAN x10^3 (test 0.03 10*3/uL 0-0.06 code = 1167679722) LYMPH x10^3 (test code 0.65 10*3/uL 1.09-3.23 L = 731-0) MONO x10^3 (test code 0.46 10*3/uL 0.36-1.02 = 742-7) EOS x10^3 (test code = 0.08 10*3/uL 0.06-0.53 711-2) BASO x10^3 (test code <0.03 0.01-0.09 = 704-7) Lab Interpretation Abnormal (test code = 63919-1) [facility] Test Item Value Reference Range Interpretation Comments MAGNESIUM (test code = 9436498149) 1.7 mg/dL 1.7-2.4 Lab Interpretation (test code = Normal 33911-4) [facility] 11:19:00 Test Item Value Reference Range Interpretation Comments PHOSPHORUS (test code = 8111893891) 3.0 mg/dL 2.5-5 Lab Interpretation (test code = Normal 50408-8) [facility] [id number] 13:59:01 Interval extubation and removal of enteric [...] reviewed this study and agree with theabove report.[facility]30[facility] (ALB,T.PRO,BILI T,BU/BC,ALT,AST,ALK PHOS) 2020-04-09 11:52:00 Test Item Value Reference Range Interpretation Comments TOTAL BILI (test code = 0940348995) 1.2 mg/dL 0.1-1.1 H BILI UNCON (test code = 2024747942) 0.8 mg/dL 0.1-1.1 BILI CONJ (test code = 4444659150) 0.0 mg/dL 0-0.3 T PROTEIN (test code = 4853730687) 4.2 g/dL 6.3-8.2 L ALBUMIN (test code = 2280679388) 2.2 g/dL 3.5-5 L ALK PHOS (test code = 9091857671) 36 U/L 34-122 ALTv (test code = 1742-6) 13 U/L 5-50 AST(SGOT) (test code = 0897157249) 23 U/L 13-40 Lab Interpretation (test code = Abnormal 60521-0) [facility] WITH [id number] 10:01:00 Test Item Value Reference Range Interpretation [...] RDW-SD (test code = 47.6 fL 38.5-51.6 55305-7) RDW-CV (test code = 14.8 % 12.1-15.4 788-0) PLT (test code = See_Comment L [Automated 777-3) message] The sy stem which generated this result transmitted reference range : 150 - 328 10*3/ ?L. The reference r meredith was not used to interpret this result as normal/abnormal . MPV (test code = 11.6 fL 9.8-13 76993-2) NRBC/100 WBC (test See_Comment [Automat ed code = 4828738196) message] The system which generated this result transmitted reference range : 0.0 - 10.0 /100 WBCs. The refer ence range was not u sed to interpret th is result as normal/abnormal . NRBC x10^3 (test code <0.01 See_Comment [Auto mated = 1056592701) message] The s ystem which generated this result transmitted reference range : 10*3/?L. The reference range was not used to interpret this result as normal/abnormal . GRAN MAT (NEUT) % 87.5 % (test code = 770-8) IMM GRAN % (test code 0.90 % = 4404677436) LYMPH % (test code = 7.5 % 736-9) MONO % (test code = 3.4 % 5905-5) EOS % (test code = 0.5 % 713-8) BASO % (test code = 0.2 % 706-2) GRAN MAT x10^3(ANC) 5.12 10*3/uL 1.99-6.95 (test code = 8434901334) IMM GRAN x10^3 (test 0.05 10*3/uL 0-0.06 code = 9906214212) LYMPH x10^3 (test code 0.44 10*3/uL 1.09-3.23 L = 731-0) MONO x10^3 (test code 0.20 10*3/uL 0.36-1.02 L = 742-7) EOS x10^3 (test code = 0.03 10*3/uL 0.06-0.53 L 711-2) BASO x10^3 (test code <0.03 0.01-0.09 = 704-7) DOHLE BODIES (test Present A code = 7792-5) TOXIC CHANGES (test Present A code = 803-7) Lab Interpretation Abnormal (test code = 02514-8) [facility] METABOLIC PANEL (NA, K, CL, CO2, GLUCOSE, BUN, CREATININE, CA)2020-04-09 09:37:00 Test Item Value Reference Range Interpretation Comments NA (test code = 135 mmol/L 135-145 0458791322) K (test code = 3.6 mmol/L 3.5-5 6832338843) CL (test code = 105 mmol/L 98-108 1621545254) CO2 TOTAL (test code = 31 mmol/L 23-31 9206407641) AGAP (test code = <1 2-16 L 0752076638) BUN (test code = 28 mg/dL 7-23 H 3601641813) GLUCOSE (test code = 95 mg/dL 70-110 4625936273) CREATININE (test code = 0.78 mg/dL 0.6-1.25 5180211241) CALCIUM (test code = 8.1 mg/dL 8.6-10.6 L 8294883265) eGFR Calculation mL/min/1.73m2 (Non-) (test code = 2554051064) eGFR Calculation mL/min/1.73m2 () (test code = 9110678174) GILBERTO (test code = GILBERTO) Association of [...] tests). Lab Interpretation Abnormal (test code = 19689-1) [facility] 09:36:00 Test Item Value Reference Range Interpretation Comments MAGNESIUM (test code = 3802245794) 1.8 mg/dL 1.7-2.4 Lab Interpretation (test code = Normal 32607-9) [facility] 09:36:00 Test Item Value Reference Range Interpretation Comments PHOSPHORUS (test code = 3612737536) 1.8 mg/dL 2.5-5 L Lab Interpretation (test code = Abnormal 10289-9) [facility] + LACTIC [id number] 21:18:00 Test Item Value Reference Range Interpretation Comments PH (test code = 2) 7.35-7.45 PCO2 (test code = See_Comment [Automate d 5976892479) message] The sy stem which generated this result transmitted reference range : 35 - 45 mmHg. The reference range was not used to interpret this result as normal/abnormal . PO2 (test code = See_Comment L [Automated 5133693817) message] The sy stem which generated this result transmitted reference range : 80 - 100 mmHg. The reference range was not used to interpret this result as normal/abnormal . HCO3 (test code = See_Comment [Automate d 2237002461) message] The sy stem which generated this result transmitted reference range : 22 - 26 mEq/L. The reference range was not used to interpret this result as normal/abnormal . BE (test code = See_Comment [Automated 3115195801) message] The sy stem which generated this result transmitted reference range : -3.0 - 3.0 mEq/ L. The reference r meredith was not used to interpret this result as normal/abnormal . THB (test code = 9.2 g/dL 13.5-18 L 1950981172) %O2HB (test code = 94.3 % 94-99 5484166225) %COHB ART (test code = 0.7 % 0-1.5 8844794473) %METHB ART (test code = 0.3 % 0.4-1.5 L 1914462356) VOL%O2 ART (test code = 12.3 % 15-23 L 2329298325) NA (test code = 135 mmol/L 135-145 8794313853) K+ (test code = 3.7 mmol/L 3.5-5 0847369117) AC CA IONZ (test code = 4.90 mg/dL 4.5-5.3 7149445531) GLUCOSE (test code = 94 mg/dL 70-110 1052669223) LACTIC ACID (test code 1.35 mmol/L = 4842867466) Lab Interpretation Abnormal (test code = 83197-1) [facility] GLUCOSE (AUTOMATED)2020-04-08 16:33:00 Test Item Value Reference Range Interpretation Comments POCT GLU (test code = 7735475683) 109 mg/dL 70-110 Lab Interpretation (test code = Normal 19553-7) [facility] GLUCOSE (AUTOMATED)2020-04-08 16:33:00 Test Item Value Reference Range Interpretation Comments POCT GLU (test code = 2055115551) 120 mg/dL 70-110 H Lab Interpretation (test code = Abnormal 35696-9) [facility] GLUCOSE (AUTOMATED)2020-04-08 16:33:00 Test Item Value Reference Range Interpretation Comments POCT GLU (test code = 9927032902) 93 mg/dL 70-110 Lab Interpretation (test code = Normal 02974-3) [facility] GLUCOSE (AUTOMATED)2020-04-08 12:46:00 Test Item Value Reference Range Interpretation Comments POCT GLU (test code = 5655896960) 109 mg/dL 70-110 Lab Interpretation (test code = Normal 41519-6) [facility] WITH [id number] 10:21:00 Test Item Value Reference Range Interpretation Comments WBC (test code = See_Comment L [Automated 2390-2) message] The system which generated this result transmitted reference range : 4.20 - 10.70 10*3/?L. The reference range was not used to interpret this result as normal/abnormal . RBC (test code = See_Comment L [Automated 969-8) message] The system which generated this result [...] RDW-SD (test code = 48.4 fL 38.5-51.6 07874-1) RDW-CV (test code = 15.0 % 12.1-15.4 788-0) PLT (test code = See_Comment L [Automated 777-3) message] The system which generated this result transmitted reference range : 150 - 328 10*3/?L. The reference range was not used to interpret this result as normal/abnormal . MPV (test code = 11.4 fL 9.8-13 59971-8) NRBC/100 WBC (test See_Comment [Automat ed code = 8318516410) message] The system which generated this result transmitted reference range : 0.0 - 10.0 /100 WBCs. The reference range was not used to interpret this result as normal/abnormal . NRBC x10^3 (test code <0.01 See_Comment [Auto mated = 4524453574) message] The system which generated this result transmitted reference range : 10*3/?L. The reference range was not used to interpret this result as normal/abnormal . GRAN MAT (NEUT) % 84.9 % (test code = 770-8) IMM GRAN % (test code 0.80 % = 2611642231) LYMPH % (test code = 7.9 % 736-9) MONO % (test code = 5.3 % 5905-5) EOS % (test code = 0.3 % 713-8) BASO % (test code = 0.8 % 706-2) GRAN MAT x10^3(ANC) 3.34 10*3/uL 1.99-6.95 (test code = 2004822950) IMM GRAN x10^3 (test 0.03 10*3/uL 0-0.06 code = 9727564878) LYMPH x10^3 (test 0.31 10*3/uL 1.09-3.23 L [...] BANDS (test code = MARKED INCREASED A 4848920308) DOHLE BODIES (test Present A code = 7792-5) TOXIC CHANGES (test Present A code = 803-7) Lab Interpretation Abnormal (test code = 52019-4) [facility] METABOLIC PANEL (NA, K, CL, CO2, GLUCOSE, BUN, CREATININE, CA)2020-04-08 10:02:00 Test Item Value Reference Range Interpretation Comments NA (test code = 138 mmol/L 135-145 1062013619) K (test code = 4.1 mmol/L 3.5-5 0427542234) CL (test code = 109 mmol/L 98-108 H 4399219910) CO2 TOTAL (test code = 25 mmol/L 23-31 1088102528) AGAP (test code = 2-16 9707880671) BUN (test code = 26 mg/dL 7-23 H 7134205119) GLUCOSE (test code = 103 mg/dL 70-110 1820933716) CREATININE (test code = 0.90 mg/dL 0.6-1.25 2765762762) CALCIUM (test code = 8.4 mg/dL 8.6-10.6 L 5127727375) eGFR Calculation mL/min/1.73m2 (Non-) (test code = 4848285489) eGFR Calculation mL/min/1.73m2 () (test code = 8435238981) GILBERTO (test code = GILBERTO) Association of [...] tests). Lab Interpretation Abnormal (test code = 77980-2) [facility] Test Item Value Reference Range Interpretation Comments MAGNESIUM (test code = 5113702764) 2.6 mg/dL 1.7-2.4 H Lab Interpretation (test code = Abnormal 67434-0) [facility] [id number] 09:43:00 Test Item Value Reference Range Interpretation Comments PH (test code = 7.32-7.42 0650597767) PCO2 PANKAJ (test code = See_Comment [Auto mated 1295452180) message] The sy stem which generated this result transmitted reference range : 41 - 51 mmHg. The reference range was not used to interpret this result as normal/abnormal . PO2 PANKAJ (test code = See_Comment [Autom ated 0985573796) message] The sy stem which generated this result transmitted reference range : 25 - 40 mmHg. The reference range was not used to interpret this result as normal/abnormal . HCO3 PANKAJ (test code = See_Comment [Auto mated 1121049352) message] The sy stem which generated this result transmitted reference range : 24 - 28 mEq/L. The reference range was not used to interpret this result as normal/abnormal . AC VBE(BEAKER) (test mEq/L code = 3516673252) THB PANKAJ (test code = 11.4 g/dL 13.5-18 L 8094069989) %O2HB PANKAJ (test code = 64.9 % 52-63 H 8396274859) %COHB PANKAJ (test code = 1.0 % 0-1.5 2770914444) %METHB PANKAJ (test code = 0.3 % 0.4-1.5 L 9995838251) VOL%O2 PANKAJ (test code = 10.4 % 6-12 0531377067) NA (test code = 138 mmol/L 135-145 4489361355) K+ (test code = 4.1 mmol/L 3.5-5 8963510071) AC CA IONZ (test code = 4.90 mg/dL 4.5-5.3 8934514359) GLUCOSE (test code = 98 mg/dL 70-110 1940220517) LACTIC ACID (test code 1.90 mmol/L = 1241737524) Lab Interpretation Abnormal (test code = 56076-7) [facility]08 04:25:00 Test Item Value Reference Range Interpretation Comments POCT GLU (test code = 4838524976) 106 mg/dL 70-110 Lab Interpretation (test code = Normal 68693-3) [facility] [id number] 22:55:21Impression: Stable findings with no new changes.Exam: [...] unchanged.IMPRESSIONIm pression: Stable findings with no new changes.[facility] MRSA / MSSA Screen by Estefanía [id number] 19:28:00 Test Item Value Reference Range Interpretation Comments MSSA Screen by Estefanía VIEIRA (test code Negative Negative = 07728-2) MRSA/MSSA Positive? (test code = No No 7642666285) Lab Interpretation (test code = Normal 60185-6) [facility]2020-04-07 17:01:00 Test Item Value Reference Range Interpretation Comments POCT GLU (test code = 4883224041) 95 mg/dL 70-110 Lab Interpretation (test code = Normal 80463-9) [facility] LACTIC [id number] 14:15:00 Test Item Value Reference Range Interpretation Comments PH (test code = 2) 7.35-7.45 L PCO2 (test code = See_Comment [Automate d 7316760670) message] The sy stem which generated this result transmitted reference range : 35 - 45 mmHg. The reference range was not used to interpret this result as normal/abnormal . PO2 (test code = See_Comment H [Automated 1058014131) message] The sy stem which generated this result transmitted reference range : 80 - 100 mmHg. The reference range was not used to interpret this result as normal/abnormal . HCO3 (test code = See_Comment L [Automate d 9107902180) message] The sy stem which generated this result transmitted reference range : 22 - 26 mEq/L. The reference range was not used to interpret this result as normal/abnormal . BE (test code = See_Comment L [Automated 3090950315) message] The sy stem which generated this result transmitted reference range : -3.0 - 3.0 mEq/ L. The reference r meredith was not used to interpret this result as normal/abnormal . THB (test code = 9.6 g/dL 13.5-18 L 5105529339) %O2HB (test code = 98.6 % 94-99 8362756348) %COHB ART (test code = 0.3 % 0-1.5 3245774777) %METHB ART (test code = 0.0 % 0.4-1.5 L 7526307530) VOL%O2 ART (test code = NA 8984883971) NA (test code = 131 mmol/L 135-145 L 5962402051) K+ (test code = 4.3 mmol/L 3.5-5 0485002463) AC CA IONZ (test code = 4.60 mg/dL 4.5-5.3 2950048944) GLUCOSE (test code = 147 mg/dL 70-110 H 9971052897) LACTIC ACID (test code 3.12 mmol/L 0.5-2.2 H = 4230501922) Lab Interpretation Abnormal (test code = 64287-7) [facility] Whole [id number] 14:00:00 Test Item Value Reference Range Interpretation Comments LACTIC ACID (test code = 3.12 mmol/L 1489521770) [facility] GLUCOSE (AUTOMATED)2020-04-07 12:53:00 Test Item Value Reference Range Interpretation Comments POCT GLU (test code = 7955422209) 140 mg/dL 70-110 H Lab Interpretation (test code = Abnormal 89583-5) [facility] L[facility]IC [id number] 12:01:00 Test Item Value Reference Range Interpretation Comments PH (test code = 2) 7.35-7.45 L PCO2 (test code = See_Comment L [Automate d 1063953567) message] The sy stem which generated this result transmitted reference range : 35 - 45 mmHg. The reference range was not used to interpret this result as normal/abnormal . PO2 (test code = See_Comment H [Automated 0428349280) message] The sy stem which generated this result transmitted reference range : 80 - 100 mmHg. The reference range was not used to interpret this result as normal/abnormal . HCO3 (test code = See_Comment L [Automate d 1892250428) message] The sy stem which generated this result transmitted reference range : 22 - 26 mEq/L. The reference range was not used to interpret this result as normal/abnormal . BE (test code = See_Comment L [Automated 1738084237) message] The sy stem which generated this result transmitted reference range : -3.0 - 3.0 mEq/ L. The reference r meredith was not used to interpret this result as normal/abnormal . THB (test code = 10.8 g/dL 13.5-18 L 4246507816) %O2HB (test code = 98.8 % 94-99 5385469127) %COHB ART (test code = 0.3 % 0-1.5 7749790763) %METHB ART (test code = 0.0 % 0.4-1.5 L 3617641540) VOL%O2 ART (test code = 15.4 % 15-23 0409348726) NA (test code = 126 mmol/L 135-145 L 0235747074) K+ (test code = 4.3 mmol/L 3.5-5 7002085034) AC CA IONZ (test code = 4.70 mg/dL 4.5-5.3 8259032974) GLUCOSE (test code = 144 mg/dL 70-110 H 5504335712) LACTIC ACID (test code 2.79 mmol/L = 2903516017) Lab Interpretation Abnormal (test code = 51562-9) [id number] 11:44:00 Test Item Value Reference Range Interpretation Comments URINE CULTURE (test No aerobic growth (< code = 630-4) 1000 CFU/mL) [facility] [id number] 09:53:00 Test Item Value Reference Range Interpretation [...] RDW-SD (test code = 48.8 fL 38.5-51.6 29353-8) RDW-CV (test code = 15.0 % 12.1-15.4 788-0) PLT (test code = See_Comment L [Automated 777-3) message] The sy stem which generated this result transmitted reference range : 150 - 328 10*3/ ?L. The reference r meredith was not used to interpret this result as normal/abnormal . MPV (test code = 11.8 fL 9.8-13 94031-1) IPF % (test code = 6.5 % 1.2-10.7 Platelet count 6326732115) measured by fluorescence method. NRBC/100 WBC (test See_Comment [Automat ed code = 6585287363) message] The system which generated this result transmitted reference range : 0.0 - 10.0 /100 WBCs. The refer ence range was not u sed to interpret th is result as normal/abnormal . NRBC x10^3 (test code <0.01 See_Comment [Auto mated = 9846970716) message] The s ystem which generated this result transmitted reference range : 10*3/?L. The reference range was not used to interpret this result as normal/abnormal . SEG % (test code = 20 % 33-76 L 88556-6) BAND % (test code = 45 % 0-1 H 78222-3) META % (test code = 9 % See_Comment H [Automa dain 52127-3) message] The sy stem which generated this result transmitted reference range : <=0. The refere nce range was not u sed to interpret th is result as normal/abnormal . MYELO % (test code = 1 % See_Comment H [Autom ated 61208-8) message] The sy stem which generated this result transmitted reference range : <=0. The refere nce range was not u sed to interpret th is result as normal/abnormal . LYMPH % (test code = 20 % 14-54 98763-3) MONO % (test code = 5 % 0-4 H 75145-3) ANC (test code = 1.40 10*3/uL 1.99-6.95 L 8238024640) GOLDEN CELLS (test code 2+ See_Comment A [...] 803-7) Lab Interpretation Abnormal (test code = 81357-3) [facility] METABOLIC PANEL (NA, K, CL, CO2, GLUCOSE, BUN, CREATININE, CA)2020-04-07 09:21:00 Test Item Value Reference Range Interpretation Comments NA (test code = 137 mmol/L 135-145 0389909829) K (test code = 4.6 mmol/L 3.5-5 4022613563) CL (test code = 110 mmol/L 98-108 H 7262850582) CO2 TOTAL (test code = 17 mmol/L 23-31 L 8266243203) AGAP (test code = 2-16 7007366054) BUN (test code = 24 mg/dL 7-23 H 8146895893) GLUCOSE (test code = 132 mg/dL 70-110 H 9587357336) CREATININE (test code = 1.23 mg/dL 0.6-1.25 5035110262) CALCIUM (test code = 8.0 mg/dL 8.6-10.6 L 1886121169) eGFR Calculation mL/min/1.73m2 (Non-) (test code = 5044162295) eGFR Calculation mL/min/1.73m2 () (test code = 8581521994) GILBERTO (test code = GILBERTO) Association of [...] tests). Lab Interpretation Abnormal (test code = 12280-0) [facility] 09[facility]19:00 Test Item Value Reference Range Interpretation Comments MAGNESIUM (test code = 9136368832) 2.9 mg/dL 1.7-2.4 H Lab Interpretation (test code = Abnormal 33656-1) [facility]2020-04-07 04:37:00 Test Item Value Reference Range Interpretation Comments POCT GLU (test code = 0046680406) 111 mg/dL 70-110 H Lab Interpretation (test code = Abnormal 37618-5) [facility] [id number] 02:35:00 Test Item Value Reference Range Interpretation Comments HCV Ab (test code = 16423-6) Negative HCV Semi-Quantitative (test code = 17268-4) [facility] + LACTIC [id number] 02:15:00 Test Item Value Reference Range Interpretation Comments PH (test code = 7.32-7.42 L 9628737469) PCO2 PANKAJ (test code = See_Comment L [Auto mated 0841338474) message] The sy stem which generated this result transmitted reference range : 41 - 51 mmHg. The reference range was not used to interpret this result as normal/abnormal . PO2 PANKAJ (test code = See_Comment HH [Autom ated 6668247741) message] The sy stem which generated this result transmitted reference range : 25 - 40 mmHg. The reference range was not used to interpret this result as normal/abnormal . HCO3 PANKAJ (test code = See_Comment L [Auto mated 2987950501) message] The sy stem which generated this result transmitted reference range : 24 - 28 mEq/L. The reference range was not used to interpret this result as normal/abnormal . AC VBE(BEAKER) (test mEq/L code = 1606112272) THB PANKAJ (test code = 11.2 g/dL 13.5-18 L 7556205752) %O2HB PANKAJ (test code = 98.7 % 52-63 H 7565813023) %COHB PANKAJ (test code = 0.3 % 0-1.5 7319642184) %METHB PANKAJ (test code = 0.1 % 0.4-1.5 L 4782994874) VOL%O2 PANKAJ (test code = 15.9 % 6-12 H 8621748325) NA (test code = 136 mmol/L 135-145 0444019362) K+ (test code = 4.2 mmol/L 3.5-5 0170605392) AC CA IONZ (test code = 4.60 mg/dL 4.5-5.3 6648076442) GLUCOSE (test code = 108 mg/dL 70-110 5974286047) LACTIC ACID (test code 2.37 mmol/L = 3587986764) Lab Interpretation Abnormal (test code = 79511-7) [facility]X+NA+K+GLU+CA2+2020-04-07 01:54:00 Test Item Value Reference Range Interpretation Comments PH (test code = 2) 7.35-7.45 LL PCO2 (test code = See_Comment [Automate d message] 9084143975) The system whic h generated this result transmit dain reference range : 35 - 45 mmHg. The reference range was not used to interpret this result as normal/abnormal . PO2 (test code = See_Comment H [Automated message] 1866243047) The system [employer] generated this result transmit dain reference range : 80 - 100 mmHg. The reference range was not used to interpret this result as normal/abnormal . HCO3 (test code = See_Comment L [Automate d message] 1335837522) The system [employer] generated this result transmit dain reference range : 22 - 26 mEq/L. The reference range was not used to interpret this result as normal/abnormal . BE (test code = See_Comment L [Automated message] 3709440571) The system [employer] generated this result transmit dain reference range : -3.0 - 3.0 mEq/ L. The reference r meredith was not used to interpret this result as normal/abnormal . THB (test code = 10.6 g/dL 13.5-18 L 4968594014) %O2HB (test code = 99.0 % 94-99 6394532249) %COHB ART (test code = 0.3 % 0-1.5 4490859000) %METHB ART (test code = 0.3 % 0.4-1.5 L 7444566979) VOL%O2 ART (test code = 15.3 % 15-23 3674269497) NA (test code = 136 mmol/L 135-145 6385251262) K+ (test code = 3.1 mmol/L 3.5-5 L 7826853275) AC CA IONZ (test code = 4.30 mg/dL 4.5-5.3 L 3345257055) GLUCOSE (test code = 113 mg/dL 70-110 H 6497009172) Lab Interpretation Abnormal (test code = 91078-2) [facility]+NA+K+GLU+CA2+2020-04-07 01:53:00 Test Item Value Reference Range Interpretation Comments PH (test code = 2) 7.35-7.45 PCO2 (test code = See_Comment L [Automate d message] 4021276956) The system [employer] generated this result transmit dain reference range : 35 - 45 mmHg. The reference range was not used to interpret this result as normal/abnormal . PO2 (test code = See_Comment H [Automated message] 5808762608) The system [employer] generated this result transmit dain reference range : 80 - 100 mmHg. The reference range was not used to interpret this result as normal/abnormal . HCO3 (test code = See_Comment L [Automate d message] 9803556672) The system [employer] generated this result transmit dain reference range : 22 - 26 mEq/L. The reference range was not used to interpret this result as normal/abnormal . BE (test code = See_Comment L [Automated message] 4386660478) The system [employer] generated this result transmit dain reference range : -3.0 - 3.0 mEq/ L. The reference r meredith was not used to interpret this result as normal/abnormal . THB (test code = 13.1 g/dL 13.5-18 L 2286164768) %O2HB (test code = 98.9 % 94-99 8438937041) %COHB ART (test code = 0.1 % 0-1.5 2283638101) %METHB ART (test code = 0.6 % 0.4-1.5 8042040110) VOL%O2 ART (test code = 19.3 % 15-23 3527870936) NA (test code = 132 mmol/L 135-145 L 0857212168) K+ (test code = 4.2 mmol/L 3.5-5 4314331128) AC CA IONZ (test code = 4.60 mg/dL 4.5-5.3 1007305950) GLUCOSE (test code = 99 mg/dL 70-110 6820336534) Lab Interpretation Abnormal (test code = 01253-2) [facility]-AB WITH [id number] 01:29:00 Test Item Value Reference Range Interpretation Comments HIV Negative Negative Semi-quantitative (test code = 03134-4) GILBERTO (test code = Non-reactive for HIV-1 GILBERTO) antigen and HIV-1/HIV-2 antibodies. ?No laboratory evidence of HIV infection. ?Repeat in 2-4 weeks if acute HIV infection is suspected. [facility]2020-[facility]-07 00:40:00 Test Item Value Reference Range Interpretation Comments POCT GLU (test code = 2975430659) 100 mg/dL 70-110 Lab Interpretation (test code = Normal 98970-8) [facility] GLUCOSE (AUTOMATED)2020-04-07 00:06:00 Test Item Value Reference Range Interpretation Comments POCT GLU (test code = 1505980259) 116 mg/dL 70-110 H Lab Interpretation (test code = Abnormal 15788-2) [facility] GLUCOSE (AUTOMATED)2020-04-06 22:48:00 Test Item Value Reference Range Interpretation Comments POCT GLU (test code = 1476356509) 94 mg/dL 70-110 Lab Interpretation (test code = Normal 80185-7) [facility]XR [facility]ST 1 [id number] 21:06:45 1. Interval placement of right internal [...] reviewed this study and agree with the abovereport.[facility] WITH [id number] 20:15:00 Test Item Value Reference Range Interpretation [...] RDW-SD (test code = 49.2 fL 38.5-51.6 78425-7) RDW-CV (test code = 14.7 % 12.1-15.4 788-0) PLT (test code = See_Comment L [Automated 777-3) message] The sy stem which generated this result transmitted reference range : 150 - 328 10*3/ ?L. The reference r meredith was not used to interpret this result as normal/abnormal . MPV (test code = 12.1 fL 9.8-13 57657-2) NRBC/100 WBC (test See_Comment [Automat ed code = 0269221158) message] The system which generated this result transmitted reference range : 0.0 - 10.0 /100 WBCs. The refer ence range was not u sed to interpret th is result as normal/abnormal . NRBC x10^3 (test code <0.01 See_Comment [Auto mated = 0674367483) message] The s ystem which generated this result transmitted reference range : 10*3/?L. The reference range was not used to interpret this result as normal/abnormal . SEG % (test code = 38 % 33-76 82612-0) BAND % (test code = 28 % 0-1 H 62861-8) META % (test code = 4 % See_Comment H [Automa dain 70106-3) message] The sy stem which generated this result transmitted reference range : <=0. The refere nce range was not u sed to interpret th is result as normal/abnormal . MYELO % (test code = 6 % See_Comment H [Autom ated 43260-1) message] The sy stem which generated this result transmitted reference range : <=0. The refere nce range was not u sed to interpret th is result as normal/abnormal . LYMPH % (test code = 16 % 14-54 58352-3) MONO % (test code = 8 % 0-4 H 16527-7) ANC (test code = 0.40 10*3/uL 1.99-6.95 L 0139035276) GOLDEN CELLS (test code 3+ See_Comment A [Auto mated = 7790-9) message] The sy stem which generated this result transmitted reference range : (none). The reference range was not used to interpret this result as normal/abnormal . DOHLE BODIES (test Present A code = 7792-5) Lab Interpretation Abnormal (test code = 90914-2) [facility]TT[facility] 19:55:00 Test Item Value Reference Range Interpretation Comments APTT Patient (test code See_Comment H [Au tomated message] = 3173-2) The system [employer] generated this result transmitted ref erence range: 26 - 36 Seconds. The reference range was not used to int erpret this result as normal/abnormal . Lab Interpretation (test Abnormal code = 88887-5) [facility] CenterPROTHROMBIN TIME / [id number] 19:55:00 Test Item Value Reference Range Interpretation Comments PROTIME PATIENT (test See_Comment H [Auto mated message] code = 5964-2) The system [employer] generated this result transmitted ref erence range: 10.1 - 1 2.6 Seconds. The reference range was not used to int erpret this result as normal/abnormal . INR (test code = 6301-6) Nor mal INR <1.1; Warfarin Therap eutic range 2.0 to 3. 0 or 2.5 to 3.5, dep ending upon the indica tions. Lab Interpretation (test Abnormal code = 87284-0) [facility]COMP[facility] MET[facility]OLIC PANEL (29901)2020-04-06 19:50:00 Test Item Value Reference Range Interpretation Comments NA (test code = 137 mmol/L 135-145 0725794510) K (test code = 3.6 mmol/L 3.5-5 7086777135) CL (test code = 109 mmol/L 98-108 H 9147357243) CO2 TOTAL (test code = 18 mmol/L 23-31 L 7649309162) AGAP (test code = 2-16 4028623005) BUN (test code = 27 mg/dL 7-23 H 5097516773) GLUCOSE (test code = 91 mg/dL 70-110 7382965467) CREATININE (test code = 1.38 mg/dL 0.6-1.25 H 8317295393) TOTAL BILI (test code = 1.0 mg/dL 0.1-1.1 1313790695) CALCIUM (test code = 8.0 mg/dL 8.6-10.6 L 1877227982) T PROTEIN (test code = 4.3 g/dL 6.3-8.2 L 4157132476) ALBUMIN (test code = 2.7 g/dL 3.5-5 L 1167327092) ALK PHOS (test code = <20 34-122 L 3657988302) ALTv (test code = 9 U/L 5-50 1742-6) AST(SGOT) (test code = 21 U/L 13-40 6037659075) eGFR Calculation mL/min/1.73m2 (Non-) (test code = 9883472738) eGFR Calculation mL/min/1.73m2 () (test code = 6195732322) GILBERTO (test code = GILBERTO) Association of [...] tests). Lab Interpretation Abnormal (test code = 38620-1) [facility] METABOLIC PANEL (NA, K, CL, CO2, GLUCOSE, BUN, CREATININE, CA)2020-04-06 19:50:00 Test Item Value Reference Range Interpretation Comments NA (test code = 137 mmol/L 135-145 7064063302) K (test code = 3.6 mmol/L 3.5-5 6394465061) CL (test code = 109 mmol/L 98-108 H 5678053346) CO2 TOTAL (test code = 18 mmol/L 23-31 L 2672163364) AGAP (test code = 2-16 9568171619) BUN (test code = 27 mg/dL 7-23 H 5701367665) GLUCOSE (test code = 91 mg/dL 70-110 4368005945) CREATININE (test code = 1.38 mg/dL 0.6-1.25 H 8233096956) CALCIUM (test code = 8.0 mg/dL 8.6-10.6 L 2777701857) eGFR Calculation mL/min/1.73m2 (Non-) (test code = 0324840790) eGFR Calculation mL/min/1.73m2 () (test code = 6391647092) GILBERTO (test code = GILBERTO) Association of [...] tests). Lab Interpretation Abnormal (test code = 12818-7) [facility]2020-[facility]-14 19:44:00 Test Item Value Reference Range Interpretation Comments MAGNESIUM (test code = 6814154111) 1.7 mg/dL 1.7-2.4 Lab Interpretation (test code = Normal 53847-3) [facility] + LACTIC [id number] 19:25:00 Test Item Value Reference Range Interpretation Comments PH (test code = 7.32-7.42 L 2990978945) PCO2 PANKAJ (test code = See_Comment L [Auto mated 6536018379) message] The sy stem which generated this result transmitted reference range : 41 - 51 mmHg. The reference range was not used to interpret this result as normal/abnormal . PO2 PANKAJ (test code = See_Comment H [Autom ated 6232822132) message] The sy stem which generated this result transmitted reference range : 25 - 40 mmHg. The reference range was not used to interpret this result as normal/abnormal . HCO3 PANKAJ (test code = See_Comment L [Auto mated 5496582723) message] The sy stem which generated this result transmitted reference range : 24 - 28 mEq/L. The reference range was not used to interpret this result as normal/abnormal . AC VBE(BEAKER) (test mEq/L code = 5441554818) THB PANKAJ (test code = 10.1 g/dL 13.5-18 L 4034450312) %O2HB PANKAJ (test code = 84.0 % 52-63 H 3595430774) %COHB PANKAJ (test code = 0.6 % 0-1.5 0452830901) %METHB PANKAJ (test code = 0.3 % 0.4-1.5 L 2147921181) VOL%O2 PANKAJ (test code = 12.0 % 6-12 4295310585) NA (test code = 135 mmol/L 135-145 7743959388) K+ (test code = 3.5 mmol/L 3.5-5 3006348763) AC CA IONZ (test code = 4.50 mg/dL 4.5-5.3 6052929234) GLUCOSE (test code = 87 mg/dL 70-110 7169466329) LACTIC ACID (test code 3.34 mmol/L = 4046815773) Lab Interpretation Abnormal (test code = 36024-0) [facility] + LACTIC [id number] 19:19:00 Test Item Value Reference Range Interpretation Comments PH (test code = 2) 7.35-7.45 L PCO2 (test code = See_Comment L [Automate d 4370825426) message] The sy stem which generated this result transmitted reference range : 35 - 45 mmHg. The reference range was not used to interpret this result as normal/abnormal . PO2 (test code = See_Comment H [Automated 8334013134) message] The sy stem which generated this result transmitted reference range : 80 - 100 mmHg. The reference range was not used to interpret this result as normal/abnormal . HCO3 (test code = See_Comment L [Automate d 5660896125) message] The sy stem which generated this result transmitted reference range : 22 - 26 mEq/L. The reference range was not used to interpret this result as normal/abnormal . BE (test code = See_Comment L [Automated 3878543202) message] The sy stem which generated this result transmitted reference range : -3.0 - 3.0 mEq/ L. The reference r meredith was not used to interpret this result as normal/abnormal . THB (test code = 10.4 g/dL 13.5-18 L 0844953861) %O2HB (test code = 98.3 % 94-99 5572577068) %COHB ART (test code = 0.3 % 0-1.5 8834242316) %METHB ART (test code = 0.3 % 0.4-1.5 L 8972637437) VOL%O2 ART (test code = 14.8 % 15-23 L 1623974487) NA (test code = 135 mmol/L 135-145 1581363736) K+ (test code = 3.5 mmol/L 3.5-5 3031501804) AC CA IONZ (test code = 4.50 mg/dL 4.5-5.3 5409180945) GLUCOSE (test code = 96 mg/dL 70-110 6078893535) LACTIC ACID (test code 2.95 mmol/L = 4356421174) Lab Interpretation Abnormal (test code = 80756-2) [facility] [id number] 16:51:00 Test Item Value Reference Range Interpretation Comments Case Report (test code Surgical Pathology ? ? = [id number]) ?Case: [id number] ? Authorizing Provider: ?Bia Pedro MD ?Collected: ? 04/03/2020 1513 ?Ordering Location: ? ? [facility] OR ? Received: ?04/03/2020 1657 ? Department ? Pathologist: ? Nimisha Galloway MD PHD ?Specimens: ? A) - COLON, total abdominal colectomy ? B) - COLON, donuts x2 ? Final Diagnosis (test o2rqsJCkNJJbo4xnOUBioB code = 2303644402) FuZzEwMzNcZnRuYmpcdWMx NTrpapHkPYdkb4DyJ8SlQb AwMFxhbnNpXGRlZmxhbmcx YUOgOXQ6daDbPQViFIzxER OhEVdeFx7iiWUrrGxwDcMc PKVqo4rvuyCIuolidDg5e2 zlDPNzDwK4eUQdGOkfM8el cuGasIWhNGXmUNf1hC31GE FneV8gqRLtZXljkvZqIUbl pxHyxoUeWay2ISBsD1gkFH WxZLXeF1BkHX4vAKKnMac1 WHF7VCT8lSaks5M0sLOfmF SehAodMeFaTlDjCFSDw5Ac JLw4wFkhL6HyWSHmXcZ5lF QgUGFyYWdyYXBoIEZvbnQ7 aRohZ1TpBWMrSaW0fTKsNU XwWZhcJYHhVn3veWg3mPgz ZscnMJZ4Mva0LS1koj10tz v2jYgbMMIwczsnVoE0HUtp EITlserxMHc5ETffIURqfZ MiYTTamEVpD1FoAVetAA0j exz2FnDsFY8wijkdWGuvVG KrRIM8SzRkDKKat0Qtladm YkXewk1mcl57IGF3f6FktH knMGK8IME0QhOmNb4qrEAg ZMSqBE0kJnXalAYrHQYzhf 44aVjgGNzphlRmzF1lVoKi XKDfuFJuTPPcFF6zqBArPZ EcmK4yjyzzDONdTsXotliv VYIgkMztvnBwWc1fpUfqCZ Q3KElxN3bklF2mEdO7ANmm W5atoY0nILo7XCovdQB7ZS HeuV6hJO9ikkpwz6gbSZY3 TYgpTZFpjtR4msMgHLTpiJ PoG8BerZ00KcUocUTzI7Dh gF2fSRfmJBJhclg7KiBeTc 4xuYWrjLV6HXezUgdyTDjr XHBnbmNvbnRccGduZGVjXH BsYWluXHBsYWluXGYwXGZz IzVqsTtlgZkmuO5cUpDdXy MyMFxwbGFpblxmMVxmczIw GRLgidAENrTZE4hHIbrdQQ 7XDWgiFgAMUHCHFO9QSqsv NCJuDFUxHL6lXkAUJ0UXVP KeH95PB6EFIEvHBnZZMEVJ AIWHIl1DB79CZUANCE2FMu AVYYwGCCFTM39TFKYNVSFH UpNKJUGKFNSKC5fUJEipDS QkOFEnBFZyI5KWZYBYZ0CR J24jZLQsbbLeMRYpSXTXFT vWBOYIMRMLXNXDQ9VELF0J ZM6LWDmQDZScB3xEIUXXDW UiX70LW31SZsUVQvZLQAiF HIUDBTIIPM7QZEgEDxTOXC yYHefFNYYMH9CVDEUyqKKb MNKiUBGmHC2MW8RNXPMGLO 9OXHBhciAgICAgLSBOTyBF KopNNU3NJYUKFkSWXGQXD6 QGOZ3NF2RAU7tFKAkpNSUv GDRyFN2pGR2QUQCMCgVFGQ BTRVNTSUxFIFNFUlJBVEVE JYUNBU6SJPNezHRhZBAuLP AtIFJFQUNUSVZFIExZTVBI XY2JEKQSCDYbdqGdOBCmKL KYEEWWZJWnAyTHRQPLEP5S IX4ODosJNdOpkLCtYJQoqy xwbGFpblxmMVxmczIyXGxh ymbqTKPrMHyaG9ozYoAyPV JvpRmsBEyyp6YhLDJlJFAj XGtxdrFpYHYrq2phRDYyDw I3oKFfKMVYYqWUPmVrYR4q CK3iGNOeLRTqOSibRvIMFW xwbGFpblxmMVxmczIwXHBh ayqcKJV4e2hsmJXjMDFgjQ TuSoMlFJDqKGKrc8dgXARu bGFuZzEwMzNcZnRuYmpcdW YiVBQrLcYys2pzz160lPEs f4uwHEVtQvF6lZTcDAIpnY dgffe2eLcjYcRnWFRxh9io cyBcZmNoYXJzZXQwIEFyaW CwI304BUUrYYhdc6dca5Lw ITJqgJJmw7W8KJWWOKumFn QwC706n5gao8kdonDvkEO1 BNJpWUS9KDrqwyKfypL8MX plqHAyDsG9EGofxsCoHSpa mwQhkgNeQmh9GPEvW223RP V9oIydn5sjMWT1CFLgXWPc YvncGp5cyVMuV458JPFdPY IKTJRngHl9KFNcxvXolvUk kUSJq732F149v3aeXOCylv WbcOnByxpfd8rrN274REPx cGVydzEyMjQwXHBhcGVyaD L6XOWgOJ4dsyovFBxnICsu YVEqulG8NNFpqVGcU3ZnQU HdKU6qewdnZJS3SAgkQJDm FFD4NcZsIHZef0Jsrhk4Te Pjuk4psf60JSH0m1BcwOxz VYP2MTD5KrRuVp2ctSDtBR HgSD2uXrWpbXXuDFSpce47 cTdrINaxwjRfoK5yPfPuFQ IhaPLrZSJgEV2xyOCwQXNq zR2fvaxnIXDqFnWtotumBD UajTrsdeCxWf9atIoaNMD3 ZXjfT7eoxM0iAqO5BAdpY8 uagQ1wOSz4IQpexGX9CCTn mQ6iHZ4ujvzvv9wsWHilHL zoPFIwfiL2bsQ4YXKekDWe B1CnyR8sRRPtXM4dfgbuc6 caQAR0HRpsLDTfYSR7LuIj OKEbc3Tjisy2SsNij6TbpO VhFGlzG42xl080HTFiuwHe V9zdgBNelcxlaDXmpqrgXG veynS5GOWcTXLjYHpmRVHm XGZzMjBcbGFuZzEwMzNcaG ljaFxmMVxkYmNoXGYxXGxv U9hiYzRdY4EeICPqAlEnzU ZrSMyxpKB7GVBzQBCgl23z rXp6IUSdgaehr6DoYQGcaL IirLMhlX2thjLif3vvHPBy BFQdAYChZ3HiTQJ2tHLwRZ OkgDSpkWS8VZ2kcdGsUL3i ZGUgYnkgcmVzaWRlbnRzLC RfMCsqz5ydMS8jUVDsxMnl cL7qhIS7SVQdp7kewQHbsE Fns5mwk8SilqOyPFeoCLQw QWzyISBwSDJkZG6hXJPdeV KqqkRsc7G9BugraHLestvt LvxnzmP1HXyarrkgSTDaQN edB0zlSmLtJCNimEelPjxf g8JoHZKlEFXhNicjvIMgmU 0= Clinical Information Large bowel (test code = obstruction [K56.609] [id number]) Gross Description (test [id number] code = [id number]) TkOIKld8ghLPTkpCKnKpAz MzNcZnRuYmpcdWMxXGRlZm Xrz4pai551qKZqc2ghOVZh VfF8zGVeQGLfzFUpS880QY AqQFoax2mlw1BvBXGxtPEd f8S2GXJOhjmkxAc6rCuqD4 6vm2T9XxbzH5tqWJJdFXvj HAYyAVfgeZKkBCY4GEJyPJ Z6VQrbxlQeszU6SArjpNNj KaG8CAt6l5gucSzcXYMzVO L9n9vqHDrdbyOnOW3khj3r oZz7y4ilsyTvFEJtJVBxmP ROQVCfI8DofYfxHc1akTf2 iQplUejxIWR6Eah1HV2ujw 42hqt3dFfiUREwxrfrXgG3 QFkiPLHgnrszEYz4YHdnIT QypSCtTCEmpNIgP0KiKNng HV4wagb8HbLtUO5aiasgEN xpAQVkFRA3MjUrNAHym1Pm qfttCoSxsl2kmy04DFC9q3 BwpKhwRLT4EDQ3AtSxTg2q jMRjKKZfIR1mVnFviJWwID Rucy66qBmsIRqoaoRqiB0p RrYfNLEmuELqTDXqIE6wyD RhHHKmlM9hfqkdBXJvNvHu vxvsWCTxrMgbkgAjGo0siI mtXKV1TOeeI1lxwS6vUwS3 TVanK0dezD3qAYl8COotfO E3ZUUrkR0dQN1mvuill7at VNO6WWjcSCXugoD4siMsRB PbqZWqI6ZzbH44MdCdbJEu C1MgtH8fAOqcMJVfiyh0Ot ExOb0wtRDtoDC8MHmdHlzh YWdlXHBnbmNvbnRccGduZG VjXHBsYWluXHBsYWluXGYw NOXcWzFluXynmFczsT2oTd BcZnMyMFxwbGFpblxmMVxm czIwIFNwZWNpbWVuIEEgaX IqtiTpAOo3WSLrNzZwf3kh eIZaFCggMIRzd5a3qFR7eI FpyRK6oTTqbXjyLO3xiHWc ECFVJJ51xKLtezYmA96yc3 5gKHIwrCVjWZDcOH8sfO6e dUEpq2sjA2KxiQfaSRJeza GgY99tu9rtmYTby7OyTJO4 b4FoxEPbl5hdN6QjaKjxb7 WjH4kyIX6jEWvmQcQaS30x vH8tiIJcY0KiFKahCX9rRS BqBmErG12ydI8jNDbzrMY2 TCThVBhzfEelIVN6WSVhLZ VfrZSubLhkFJayjUqygN7u RHSmSABdkTItsaHfJS9fvB qwgFQ7QeXuF59nEOgyoSW0 FOXiISX6dQVsWX5rWVfny0 NzbHkgaWRlbnRpZmlhYmxl FROtxUJhCLc8YgDAoDXlb6 Hhw2NnEJhoOPEjha9dYQHr KB2mEBNit918sTZ3bQNsKR SnuXY4TPXgrlEhk9Omse7c VGhlIHNwZWNpbWVuIGlzIG 0fMM0rHMTdzH6fTjOitRRn PT62zZ3nj9ZyeVIgrUUrUr 9yZGVyLiBUaGVyZSBpcyBh YDLlctY3wIHnfjDqxVvrjD U4HJnjMIjeIRrxXWLeQ7Mq VEDfc48kRFFiteP9yJ07bs DmyNLsQZG3ZIPvWZHwwRIc AqIvC37qMzTcxTL0mBOfJP ctmGSeJQ1mhdudbxViisFd LFIlY52eCzCnxPQ7qPHahG UvzQcaXDnhdIErO9fkLaKK gk24jE0ddBN0zuV3vREvrO EehxmbtTBajPAwNE62gA7g PCVnk6GmM2enKOvcz6Scrd K4tEQfGk47PGveeGOjNKdv dGVuZGVkIGZvciBhIGxlbm x9mQPkYuUzCP4gZIMkZaDD jJZbgS0zmFamXEEsg9Pimr UjBEPfAIphr72klOsrYV45 L08aBUOcudFli0JowIk5LU LoRAX6DQ2cKSzcM7DfwkLs YXIsIHdpdGggYXJlYXMgb2 GgE65dVoatp6IrnbZhJEUs YTChKV4fRYUwdpWbW3wgQc Yose3oYCErGF7zUi55XMSr FP4iTArfGUxxuNssd6VrsT xrKRXwd2JwxuOzDQCoVCwp u30dtHLdaQqeI6jmfwEiRC SxDASjyJFeMIE1OHufFP0n vT1qKIMrc81xIG7oRFDbVc LrhVbbVKSzFZKbCY7rkY9p rhimzCMlg5TxJX8wFBXaQS Xyp2dvtaPwmtB3WJ0vqEft bwJtuaIjwGmvQSHah2BesM DtLPUrhP0rBOTxOYStfbVr uk0bg8v1VTBfIVCuSV4nAE ZocWvvULjvCX3fYMUwrHOl fC8psTvjleC5bFEhUEHtzr BhbiBhZGRpdGlvbmFsIHdl vZljvCMwiHDfTES9xgswJ7 YxPWHnQPTpPWRzd3YidLE0 stR1hZUyjSgyz4WdE5WlJH y9rhO0hQ4bCWRiKUIdXAcm CJUtoE9kz4blwULtoPqqm6 PfE9LjQDJzmWRgGDsolCbq XL6hPLK6HJGtXDAvo5KzfL RtiGRcWnDunsWff8DkwqLz FEByXZSgpWTgcgXwIB9rrZ sfVhubYK30QPGtVEkfXLPe BC8jjYHtWUS9qRMnUIWbp3 HjnPAuTJXfCLYob1KlgEwk IGxpbmUgYXQgdGhlIGJsaW 1tJUAjHRoga8Lqdv64xbHt FTYugRNcfRWzJ3fxPYXhXI mwl3MkSCLfx6I8BZ6mFHim IHJlbWFpbmluZyBtdWNvc2 Quk2EteJvpTUyyGQFmYKnc JNJhDoN8c6IumLZxqATfhQ BhbmQgdGhlIHZpYWJpbGl0 dUDeQkH9eWUsebDmQME1bD 5rAT4ugdqfhyEmBC6pi5Kj NrZgD3Ydk0YgaRUsLBHjtt 1pbmVkLiBUaGUgcGVyaWNv fL1vzKTuMFMciG9dUXF1gI ZseIPrzRPkiFRxvWT4LAAu Pl0nTUMamZ2hi5bvsZCtjS xlxQtmxu0dMQDfDOPwdeui hwysHgKkxLXhXvSbAE65VW KtXRpoUQxpANS3QVI4GARz yRKpz5opdssnXWRieCTxu5 YtiDA6vFQgFHFjZ2Tlp44k HOAwNLPlgPJqqDN6EJLavC 4gQTEtQTEwLlxwYXJccGFy RVGyL1Yap01lC95fIKoieQ JwQRTbLjSBuc34oO9zwQNq MPYwZ9Enq12iiGAcG5gcYN BlbiBmYWNlLCByZXByZXNl ymSeeYo2ZBlaZGPeXZA7JX Kya1LstPXeLSNoN5Occ19z gEWyK4mnBAAhnwVhYSDwIQ FhOCYzNNTodwVwuYa8PNnp SNIwTSC0TNywBR8jNESohL LwkA6vnZxplmF4lWXgVOE5 tnlzT4VmFXZeQEMwGEKsxQ Gqo6JqdEO3wPWuQROgjqPT ZHlaCeWoigPySQ75PNJaon Amh8ZtzSqejdHrz2WbhFUm i9CpHSXxCDK4WVijBWKcn9 hpbWFsIHRvIHRoZSBkaXN0 HY2jYCDxZGExHKhgVWBpWD JyANT3UGZvzTNni3AeoPW1 mHOwNWSbA2Ppp81kWQ9gSI 42A66sKFTwcfGfn8ZfcTNr yi3hIPAnINNobAK7YV6cPK VzGLEvEZatSASqDSu1QPMs KNRwf3QoAIR3dudrB6YeGL NjYXIgZGlzdGFsIHRvIGRp o7SdcxHxLLGhprKhTWFlHY ZxCRMseiWvqQg9NMsfNXHv QTh8OGBheBTpg8QmwTK8aL UiAUFuL2Gyk37yRQ0iCT42 W68eCFGguhVvg0WkrNXflZ P4HGkzvB2geXrkVXAjj6Ig bmRlZCBhcmVhXHBhciBBOT jpXX0hw2opeFUaxLeps0Fr N5IjMBHbmJOgQYItIVXnGQ BzesLsjMw1FZnaIZNmVIXe DqYXha2kjaRrYEO4tT8eTI 9mIGludGVzdGluZSBhdHRh Z2nxXVU6vbTpr0CqdZNjWU QkxVJeX8SeYLyogbGifpKv FYZeeHRpu9SdtOC4sARmSO OkqyYZZMQ6PFZxxQ8yy9bx jFTkoBxoiVwijg7gYCCvJC shv6wxOOkjVIXpxCDbFXFg ppBqbThiqQ3dOzWlKePnQD xwbGFpblxmMVxmczIwIFNw ZWNpbWVuIEIgaXMgcmVjZW t8DQQaHhZbk2gzyCOpDNdh SUV6cZIvMQAtBJTmNRUiVV 67D5MswkRoZTwhMRihvpPc OrJxTGQer5lvirlsXN4wlY GmZPtuXAtpTneuKL2vDORr cwBqu4FtGP0kAYHmKT9rq9 TekV9kiJ4wZOQcjsW4suSh ID04DPykYV69VIdkYJ74AX NtIGFuZCAyLjUgeCAxLjkg tKJuSxsbW24tAoBGd5McHJ NpzhJ5dxSiorBfYlmqLLO0 WCRrGDDcSQQmgGBsvE8ndy TuagZqiGDxzQB4JWQxUQ94 vEFfbDidVO5mDfHjAWVhgz XTJW4LVjvxtHEkN6GaYMHy kgG8ZBgkKCCqHTDvOAYfIC BzbWFsbGVyIGRvdWdobnV0 IGluIEIzLiBccGFyXHBhci RYGYH6VVCujeYmkNuvZIZH VZLaMSMiC7Z7QFRwgVktFO ZmTXU1llMnZBOxS1XaACZQ PKPYS4CsDLRnFTygKCAjBD ZzMTZcbGFuZzEwMzNcaGlj aFxmMVxkYmNoXGYxXGxvY2 bmKsFyZ5MeBLBsFJBsC18v tWpqxW9lZsUfTvNgNVxzUV AnhEywkCzgzC7iRrFeYlFu MFxwbGFpblxmMVxmczIwXH Bhcn0= Embedded Images (test code = 9004597337) [facility] 16:04:Ana Ahn MD ? ? 04/06/2020 11:06 AMIntubationUrgency: emergent Difficult airway General Information and Staff Patient location during procedure: ORAnesthesiologist: Cynthia Herring MDResident/ARMAMENT INSTALLER: Dana Sampson DOPerformed: anesthesiologist and resident/ARMAMENT INSTALLER Indications and Patient ConditionIndications for airway management: [...] from glidescope to advance tube into airway. [facility] CenterIntubation2020-08-14 16:04:Ana Ahn MD ? ? 04/08/2020 ?5:11 AMIntubationUrgency: emergent Difficult airway General Information and Staff Patient location during procedure: ORAnesthesiologist: Cynthia Herring MDResident/ARMAMENT INSTALLER: Dana Sampson DOPerformed: anesthesiologist and resident/ARMAMENT INSTALLER Indications and Patient ConditionIndications for airway management: [...] glidescope to advance tube into airway. Additional IfdkbgmiY0x on VL by CA1, multiple attempts by CA1 with ETT with stylet and bougie, unable to pass ETT through glottis. BVM between attempts. Glidescope stylet with ETT used by faculty under VL, attempt x 1 by faculty, g1v, atraumatic.[facility]XR [id number] 15:42:20 Large volume pneumoperitoneum. Continued gaseous distention and dilatation of the stomach and smallbowelfollowing total colectomy with ileoanal anastomosis may representpostoperative ileus. Findings regarding pneumoperitoneum were already communicated to [facility]. Preliminary Report Dictated by Resident: [...] small bowel and issimilar to prior radiographs. [place] project over the midline in the lowerabdomen. [facility], Radiant Results Inft User - 04/06/2020 [...] ileus.Findings regarding pneumoperitoneum were already communicated to [facility].Preliminary Report Dictated by Resident: Bart Klein reviewed this study and agree.IWeston MD., have reviewed this study andagree with theabove report. [facility] CenterType and Screen - ONCE [id number] 15:18:48 Test Item Value Reference Range Interpretation Comments ABO & RH (test code O POSITIVE Performe d at [facility] = 20) Laboratory [facility] Blood Bank[address] [facility] s [address]Hevl Free: [phone] A No. [id number] IAT (test code = Negative Performed a t [facility] 1185) Laboratory Serv [facility] Blood Bank[address] [facility] s [address]Ojwr Free: [phone] A No. [id number] [facility]XR CHEST 1 [id number] 15:09:51 1. ?Interval development of a large pneumoperitoneum.2. ?No interval change in lung findings. The findings of this study, including pneumoperitoneum, have been discussedwith and acknowledged by Dr. Haines over the phone on 04/06/2020 at 0931amwith readback. 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 FINDINGS: Lines/tubes: Enteric tube c ourses over the midline and inferiorly beyondthe diaphragm and acjtn-hl-erpj. Left diaphragm is elevated with interval development of large amount offree air noted under the diaphragms, better seen on concomitant abdominalx-ray. Lungs are clear without focal consolidation, pleural effusion orpneumothorax. The cardiomediastinal silhouette is stable. ?No acute osseousabnormalities. 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 Left diaphragm is elevated with interval development [...] have reviewed this study and agree with theabovereport.[facility] [id number] 14:52:Ana Schulz MD ? ? 04/06/2020 ?9:53 [...] tolerated procedure well with no complications ? [facility] [id number] 14:52:Ana Schulz MD ? ? 04/06/2020 ?9:53 [...] tolerated procedure well with no complications ? [facility] BranchArterial [id number] 14:51:44Ana Syed MD ? ? 04/06/2020 ?9:52 AM Arterial Line Date/Time: 04/06/2020 9:21 AMPerformed by: Ana Syed MD Arterial Line Placement: ?Ultrasound-Guided: ultrasound guided ? ?Patient Location: ?OR ?Indication: continuous blood pressure monitoring and blood sampling needed ?Staff: ?Supervising Anesthesiologist: ?Cynthia Herring MD ?Resident: ?Ana Seyd MDProcedure Detail: ?Catheter Size: ?20 gauge ?Catheter Length: ?1 and 3/4 inch ?Catheter Type: ?Arrow ?Seldinger Technique?: No ? ?Laterality: ?Right ?Site: ?Radial artery ?Line Secured: ?Biopatch, Tegaderm andtape ?Preparation: ?Chloroprep, drape, sterile gloves, guidewire removed intact and biopatch appliedEvents: ?Events: ?Patient tolerated procedure well with no complications and all wires accounted for _ [facility] CenterArterial [id number] 14:51:44Ana Syed MD ? ? 04/06/2020 ?9:52 [...] complications and all wires accounted for _ [facility] CenterCBC WITH [id number] 13:22:00 Test Item Value Reference Range Interpretation [...] RDW-SD (test code = 47.8 fL 38.5-51.6 25208-5) RDW-CV (test code = 14.6 % 12.1-15.4 788-0) PLT (test code = See_Comment [Automated 777-3) message] The system which generated this result transmitted reference range : 150 - 328 10*3/?L. The reference range was not used to interpret this result as normal/abnormal . MPV (test code = 12.1 fL 9.8-13 67791-1) NRBC/100 WBC (test See_Comment [Automat ed code = 1952875223) message] The system which generated this result transmitted reference range : 0.0 - 10.0 /100 WBCs. The reference range was not used to interpret this result as normal/abnormal . NRBC x10^3 (test code <0.01 See_Comment [Auto mated = 4795238702) message] The system which generated this result transmitted reference range : 10*3/?L. The reference range was not used to interpret this result as normal/abnormal . GRAN MAT (NEUT) % 71.6 % (test code = 770-8) IMM GRAN % (test code 0.90 % = 6779642006) LYMPH % (test code = 18.3 % 736-9) MONO % (test code = 9.2 % 5905-5) EOS % (test code = 0.0 % 713-8) BASO % (test code = 0.0 % 706-2) GRAN MAT x10^3(ANC) 0.78 10*3/uL 1.99-6.95 L (test code = 3517665206) IMM GRAN x10^3 (test <0.03 0-0.06 code = 8210805304) LYMPH x10^3 (test 0.20 10*3/uL 1.09-3.23 L code = 731-0) MONO x10^3 (test code 0.10 10*3/uL 0.36-1.02 L = 742-7) EOS x10^3 (test code <0.03 0.06-0.53 L = 711-2) BASO x10^3 (test code <0.03 0.01-0.09 = 704-7) GOLDEN CELLS (test code 2+ See_Comment A [Auto mated = 5413-5) message] The system which generated this result transmitted reference range : (none). The reference range was not used to interpret this result as normal/abnormal . BANDS (test code = MARKED INCREASED A 7827786130) Lab Interpretation Abnormal (test code = 07700-4) [facility] METABOLIC PANEL (NA, K, CL, CO2, GLUCOSE, BUN, CREATININE, CA)2020-04-06 12:38:00 Test Item Value Reference Range Interpretation Comments NA (test code = 134 mmol/L 135-145 L 6611674398) K (test code = 4.5 mmol/L 3.5-5 8636460338) CL (test code = 105 mmol/L 98-108 6853479297) CO2 TOTAL (test code = 18 mmol/L 23-31 L 7157769582) AGAP (test code = 2-16 9307743524) BUN (test code = 30 mg/dL 7-23 H 3019920151) GLUCOSE (test code = 117 mg/dL 70-110 H 5468783536) CREATININE (test code = 1.95 mg/dL 0.6-1.25 H 3018969513) CALCIUM (test code = 8.6 mg/dL 8.6-10.6 0163236128) eGFR Calculation mL/min/1.73m2 (Non-) (test code = 6663131266) eGFR Calculation mL/min/1.73m2 () (test code = 2040224499) GILBERTO (test code = GILBERTO) Association of [...] tests). Lab Interpretation Abnormal (test code = 82346-3) [facility] CenterMAGNESIUM2020-08-14 12:38:00 Test Item Value Reference Range Interpretation Comments MAGNESIUM (test code = 0503112274) 2.3 mg/dL 1.7-2.4 Lab Interpretation (test code = Normal 99934-9) [facility]XR [id number] 23:28:32 Prominent gaseous distention of small bowel [...] pelvis. Note: Left hemidiaphragm isnot fully within nsjil-zc-zizt. FINDINGS: Status post colectomy. Massive gaseous distention of the stomach and to lesser degree of smallbowel. Paucity of gas within the anorectal region and lower pelvis.Multiple surgical clips project over the right lower quadrant. Staplesproject over the midline. No pneumoperitoneum within limits of single AP technique. [facility], Radiant Results Inft User - 04/05/2020 6:29 PM CDTEXAM: XR KUBHISTORY: 50-year-old male status post total abdominal colectomy withileorectal anastomosis on 04/03/2020. History of colonic dysmotility.COMPARISON: CT abdomen 03/30/2020, CT abdomen 03/25/2020, acute abdominalseries 03/02/2020TECHNIQUE: AP views of the abdomen and pelvis.Note: Left hemidiaphragm isnot fully within zldne-su-tbal.FINDINGS:Status post colectomy.Massive gaseous distention of the stomach [...] this study and agree with theabove report. [facility]XR [id number] 23:22:45 Esophogastric tube tip projects over the stomach fundus. Redemonstration of extensive small bowel dilatation in the recentpostoperative setting status post total colectomy with ileoanalanastomosis. Findings may represent severe ileus. Correlate clinically. Preliminary Report Dictated by Resident: Louis Donnelly MD., have reviewed this study and agree with theabove report.EXAM: XRKUB HISTORY: post ngt placement COMPARISON: [facility] 04/05/2020 Technique: Single AP view of the upper abdomen. Note: Bilateralhemidiaphragms and upper abdomen are not within awurm-po-sbqm. FINDINGS: The tipof the esophogastric tube projects [...] CDTEXAM: XR KUBHISTORY: post ngt placement COMPARISON: [facility] 04/05/2020Technique: Single AP view of the upper abdomen. Note: Bilateralhemidiaphragms and upper abdomen are not within itkks-ds-didi.FINDINGS:The tip of the esophogastric tube projects over [...] reviewed this study and agree with theabove report.[facility] CenterBAPSYCHIATRIC METABOLIC PANEL (NA, K, CL, CO2, GLUCOSE, BUN, CREATININE, CA)2020-04-05 11:08:00 Test Item Value Reference Range Interpretation Comments NA (test code = 137 mmol/L 135-145 0110636347) K (test code = 4.4 mmol/L 3.5-5 8467146129) CL (test code = 104 mmol/L 98-108 2530019812) CO2 TOTAL (test code = 24 mmol/L 23-31 1490163158) AGAP (test code = 2-16 6215154729) BUN (test code = 10 mg/dL 7-23 9611632164) GLUCOSE (test code = 104 mg/dL 70-110 8968234314) CREATININE (test code 1.18 mg/dL 0.6-1.25 = 3639823471) CALCIUM (test code = 8.7 mg/dL 8.6-10.6 4327562316) eGFR Calculation mL/min/1.73m2 (Non-) (test code = 6816048867) eGFR Calculation mL/min/1.73m2 () (test code = 7358079157) GILBERTO (test code = GILBERTO) Association of [...] or urine or abnormalities in imaging tests). [facility]MAGN[facility]IUM2020-08-13 11:08:00 Test Item Value Reference Range Interpretation Comments MAGNESIUM (test code = 5742123117) 2.3 mg/dL 1.7-2.4 Lab Interpretation (test code = Normal 70271-2) [facility]CB WITH [id number] 10:32:00 Test Item Value Reference Range Interpretation [...] RDW-SD (test code = 47.8 fL 38.5-51.6 71190-9) RDW-CV (test code = 14.6 % 12.1-15.4 788-0) PLT (test code = See_Comment [Automated 777-3) message] The sy stem which generated this result transmitted reference range : 150 - 328 10*3/ ?L. The reference r meredith was not used to interpret this result as normal/abnormal . MPV (test code = 11.6 fL 9.8-13 13615-6) NRBC/100 WBC (test See_Comment [Automat ed code = 7611083826) message] The system which generated this result transmitted reference range : 0.0 - 10.0 /100 WBCs. The refer ence range was not u sed to interpret th is result as normal/abnormal . NRBC x10^3 (test code <0.01 See_Comment [Auto mated = 5961637981) message] The s ystem which generated this result transmitted reference range : 10*3/?L. The reference range was not used to interpret this result as normal/abnormal . GRAN MAT (NEUT) % 82.4 % (test code = 770-8) IMM GRAN % (test code 0.30 % = 9661063373) LYMPH % (test code = 12.4 % 736-9) MONO % (test code = 4.5 % 5905-5) EOS % (test code = 0.2 % 713-8) BASO % (test code = 0.2 % 706-2) GRAN MAT x10^3(ANC) 5.12 10*3/uL 1.99-6.95 (test code = 0675663529) IMM GRAN x10^3 (test <0.03 0-0.06 code = 4039675914) LYMPH x10^3 (test code 0.77 10*3/uL 1.09-3.23 L = 731-0) MONO x10^3 (test code 0.28 10*3/uL 0.36-1.02 L = 742-7) EOS x10^3 (test code = <0.03 0.06-0.53 L 711-2) BASO x10^3 (test code <0.03 0.01-0.09 = 704-7) Lab Interpretation Abnormal (test code = 34540-9) [facility] METABOLIC PANEL (NA, K, CL, CO2, GLUCOSE, BUN, CREATININE, CA)2020-04-04 11:02:00 Test Item Value Reference Range Interpretation Comments NA (test code = 135 mmol/L 135-145 9269766594) K (test code = 4.4 mmol/L 3.5-5 Slight 3307574932) hemolysis CL (test code = 103 mmol/L 98-108 6213232048) CO2 TOTAL (test code 26 mmol/L 23-31 = 0922111974) AGAP (test code = 2-16 2064638615) BUN (test code = 7 mg/dL 7-23 Slight 7865817646) hemolysis GLUCOSE (test code = 119 mg/dL 70-110 H 7160850826) CREATININE (test code 0.95 mg/dL 0.6-1.25 = 2126525348) CALCIUM (test code = 8.3 mg/dL 8.6-10.6 L 8015636847) eGFR Calculation mL/min/1.73m2 (Non-) (test code = 4580786786) eGFR Calculation mL/min/1.73m2 () (test code = 9061840879) GILBERTO (test code = GILBERTO) Association of [...] tests). Lab Interpretation Abnormal (test code = 58593-6) [facility] Test Item Value Reference Range Interpretation Comments MAGNESIUM (test code = 7443607297) 1.7 mg/dL 1.7-2.4 Lab Interpretation (test code = Normal 04515-7) [facility] WITH [id number] 10:31:00 Test Item Value Reference Range Interpretation [...] RDW-SD (test code = 46.5 fL 38.5-51.6 84966-9) RDW-CV (test code = 14.3 % 12.1-15.4 788-0) PLT (test code = See_Comment L [Automated 777-3) message] The sy stem which generated this result transmitted reference range : 150 - 328 10*3/ ?L. The reference r meredith was not used to interpret this result as normal/abnormal . MPV (test code = 11.2 fL 9.8-13 98937-4) NRBC/100 WBC (test See_Comment [Automat ed code = 1616481238) message] The system which generated this result transmitted reference range : 0.0 - 10.0 /100 WBCs. The refer ence range was not u sed to interpret th is result as normal/abnormal . NRBC x10^3 (test code <0.01 See_Comment [Auto mated = 7051942775) message] The s ystem which generated this result transmitted reference range : 10*3/?L. The reference range was not used to interpret this result as normal/abnormal . GRAN MAT (NEUT) % 76.7 % (test code = 770-8) IMM GRAN % (test code 0.30 % = 8344205854) LYMPH % (test code = 16.4 % 736-9) MONO % (test code = 6.2 % 5905-5) EOS % (test code = 0.2 % 713-8) BASO % (test code = 0.2 % 706-2) GRAN MAT x10^3(ANC) 5.12 10*3/uL 1.99-6.95 (test code = 3087373830) IMM GRAN x10^3 (test <0.03 0-0.06 code = 2537293511) LYMPH x10^3 (test code 1.09 10*3/uL 1.09-3.23 = 731-0) MONO x10^3 (test code 0.41 10*3/uL 0.36-1.02 = 742-7) EOS x10^3 (test code = <0.03 0.06-0.53 L 711-2) BASO x10^3 (test code <0.03 0.01-0.09 = 704-7) Lab Interpretation Abnormal (test code = 83100-4) [facility] WITH [id number] 11:04:00 Test Item Value Reference Range Interpretation [...] RDW-SD (test code = 45.6 fL 38.5-51.6 98251-3) RDW-CV (test code = 14.0 % 12.1-15.4 788-0) PLT (test code = See_Comment L [Automated 777-3) message] The sy stem which generated this result transmitted reference range : 150 - 328 10*3/ ?L. The reference r meredith was not used to interpret this result as normal/abnormal . MPV (test code = 11.2 fL 9.8-13 61660-2) NRBC/100 WBC (test See_Comment [Automat ed code = 5704565127) message] The system which generated this result transmitted reference range : 0.0 - 10.0 /100 WBCs. The refer ence range was not u sed to interpret th is result as normal/abnormal . NRBC x10^3 (test code <0.01 See_Comment [Auto mated = 4145097472) message] The s ystem which generated this result transmitted reference range : 10*3/?L. The reference range was not used to interpret this result as normal/abnormal . GRAN MAT (NEUT) % 52.7 % (test code = 770-8) IMM GRAN % (test code 0.30 % = 4674375614) LYMPH % (test code = 34.6 % 736-9) MONO % (test code = 9.6 % 5905-5) EOS % (test code = 2.2 % 713-8) BASO % (test code = 0.6 % 706-2) GRAN MAT x10^3(ANC) 1.88 10*3/uL 1.99-6.95 L (test code = 1359934684) IMM GRAN x10^3 (test <0.03 0-0.06 code = 5120682729) LYMPH x10^3 (test code 1.23 10*3/uL 1.09-3.23 = 731-0) MONO x10^3 (test code 0.34 10*3/uL 0.36-1.02 L = 742-7) EOS x10^3 (test code = 0.08 10*3/uL 0.06-0.53 711-2) BASO x10^3 (test code <0.03 0.01-0.09 = 704-7) REACT LYMPHS (test Rare code = 1365519394) Lab Interpretation Abnormal (test code = 35080-9) [facility] METABOLIC PANEL (NA, K, CL, CO2, GLUCOSE, BUN, CREATININE, CA)2020-04-03 10:54:00 Test Item Value Reference Range Interpretation Comments NA (test code = 140 mmol/L 135-145 8787288063) K (test code = 3.9 mmol/L 3.5-5 4339589348) CL (test code = 107 mmol/L 98-108 5656105909) CO2 TOTAL (test code = 28 mmol/L 23-31 6408949900) AGAP (test code = 2-16 1276883671) BUN (test code = 4 mg/dL 7-23 L 1202039919) GLUCOSE (test code = 88 mg/dL 70-110 2171801635) CREATININE (test code = 0.96 mg/dL 0.6-1.25 6845263192) CALCIUM (test code = 8.6 mg/dL 8.6-10.6 2081003431) eGFR Calculation mL/min/1.73m2 (Non-) (test code = 7338025813) eGFR Calculation mL/min/1.73m2 () (test code = 7576397043) GILBERTO (test code = GILBERTO) Association of [...] tests). Lab Interpretation Abnormal (test code = 24837-1) [facility]2020-08-11 10:54:00 Test Item Value Reference Range Interpretation Comments MAGNESIUM (test code = 7606848590) 2.0 mg/dL 1.7-2.4 Lab Interpretation (test code = Normal 01221-9) [facility] - ONCE [id number] 23:40:25 Test Item Value Reference Range Interpretation Comments ABO & RH (test code O POSITIVE Performe d at [facility] = 20) Laboratory Serv [facility] Blood Bank[address] [facility] s [address]Qjzf Free: [phone] A No. [id number] IAT (test code = Negative Performed a t [facility] 1185) Laboratory Serv [facility] Blood Bank[address] [facility] s [address]Sdoo Free: [phone] A No. [id number] [facility] WITH [id number] 11:21:00 Test Item Value Reference Range Interpretation Comments WBC (test code = See_Comment L [Automated 2290-2) message] The sy stem which [...] RDW-SD (test code = 45.8 fL 38.5-51.6 14336-4) RDW-CV (test code = 14.2 % 12.1-15.4 788-0) PLT (test code = See_Comment L [Automated 777-3) message] The sy stem which generated this result transmitted reference range : 150 - 328 10*3/ ?L. The reference r meredith was not used to interpret this result as normal/abnormal . MPV (test code = 10.6 fL 9.8-13 91510-3) NRBC/100 WBC (test See_Comment [Automat ed code = [id number]) message] The system which generated this result transmitted reference range : 0.0 - 10.0 /100 WBCs. The refer ence range was not u sed to interpret th is result as normal/abnormal . NRBC x10^3 (test code <0.01 See_Comment [Auto mated = [id number]) message] The s ystem which generated this result transmitted reference range : 10*3/?L. The reference range was not used to interpret this result as normal/abnormal . GRAN MAT (NEUT) % 46.4 % (test code = 770-8) IMM GRAN % (test code 0.30 % = 2694461286) LYMPH % (test code = 38.8 % 736-9) MONO % (test code = 10.5 % 5905-5) EOS % (test code = 3.3 % 713-8) BASO % (test code = 0.7 % 706-2) GRAN MAT x10^3(ANC) 1.41 10*3/uL 1.99-6.95 L (test code = 7606042006) IMM GRAN x10^3 (test <0.03 0-0.06 code = 0048169782) LYMPH x10^3 (test code 1.18 10*3/uL 1.09-3.23 [...] . Lab Interpretation Abnormal (test code = 07919-3) [facility] METABOLIC PANEL (NA, K, CL, CO2, GLUCOSE, BUN, CREATININE, CA)2020-04-02 11:05:00 Test Item Value Reference Range Interpretation Comments NA (test code = 139 mmol/L 135-145 1769629793) K (test code = 4.0 mmol/L 3.5-5 7703645549) CL (test code = 108 mmol/L 98-108 9843812902) CO2 TOTAL (test code = 25 mmol/L 23-31 8271073101) AGAP (test code = 2-16 9035239912) BUN (test code = 6 mg/dL 7-23 L 7750161017) GLUCOSE (test code = 99 mg/dL 70-110 0431824708) CREATININE (test code = 0.92 mg/dL 0.6-1.25 1792661402) CALCIUM (test code = 8.3 mg/dL 8.6-10.6 L 4282640863) eGFR Calculation mL/min/1.73m2 (Non-) (test code = 0518542408) eGFR Calculation mL/min/1.73m2 () (test code = 2470816027) GILBERTO (test code = GILBERTO) Association of [...] tests). Lab Interpretation Abnormal (test code = 82335-9) [facility] Test Item Value Reference Range Interpretation Comments MAGNESIUM (test code = 6767743619) 2.0 mg/dL 1.7-2.4 Lab Interpretation (test code = Normal 87361-0) [facility]2020-04-02 00:43:00 Test Item Value Reference Range Interpretation Comments SARS-CoV-2 Rapid ID NOW Not Detected Not Detected (test code = 26908-9) GILBERTO (test code = GILBERTO) ID NOW COVID-19 Assay is an isothermal nucleic acid amplification test intended for the qualitative detection of nucleic acid from SARS-CoV-2 viral RNA in nasopharyngeal (PARENT COACH) specimens. It is used under Emergency Use [...] indicated. Lab Interpretation Normal (test code = 67848-3) [facility] 11:39:00 Test Item Value Reference Range Interpretation Comments APPEARANCE (test code = Hazy Clear A 7796643845) COLOR (test code = Yellow Yellow 7691347474) PH (test code = 4.8-8.0 5390781985) SP GRAVITY (test code = 1.003-1.030 H 5056100344) GLU U QUAL (test code = Normal Normal 6353751718) BLOOD (test code = Negative Negative 2205221725) KETONES (test code = 5 mg/dL Negative A 0233067392) PROTEIN (test code = Negative Negative 2887-8) UROBILIN (test code = 2.0 mg/dL Normal A 3726938282) BILIRUBIN (test code = Negative Negative 1140728465) NITRITE (test code = Negative Negative 4958532363) LEUK ROGER (test code = Negative Negative 1149216915) RBC/HPF (test code = See_Comment [Autom ated message] 0057971884) The system [employer] generated this result transmit dain reference range : 0 - 3 HPF. The refe rence range was not u sed to interpret th is result as normal/abnormal . WBC/HPF (test code = See_Comment [Autom ated message] 8733282809) The system [employer] generated this result transmit dain reference range : 0 - 5 HPF. The refe rence range was not u sed to interpret th is result as normal/abnormal . BACTERIA (test code = Negative Negative 2356251091) CA OXALATE (test code = See_Comment H [Au tomated message] 2861471526) The system [employer] generated this result transmit dain reference range : <=1 HPF. The refere nce range was not u sed to interpret th is result as normal/abnormal . Lab Interpretation (test Abnormal code = 28911-6) [facility] W [id number] 00:38:37 1. ?Massive air distention of the [...] focal loculated drainable fluidcollection.RL: 460END [facility] REPORT [facility] (NA, K, CL, CO2, GLUCOSE, BUN, CREATININE, CA)2020-03-30 23:45:00 Test Item Value Reference Range Interpretation Comments NA (test code = 140 mmol/L 135-145 9857238249) K (test code = 4.3 mmol/L 3.5-5 2090916291) CL (test code = 101 mmol/L 98-108 9135907593) CO2 TOTAL (test code = 28 mmol/L 23-31 3658659869) AGAP (test code = 2-16 3728624324) BUN (test code = 24 mg/dL 7-23 H 3863548729) GLUCOSE (test code = 90 mg/dL 70-110 1829587382) CREATININE (test code = 1.29 mg/dL 0.6-1.25 H 1853994281) CALCIUM (test code = 9.4 mg/dL 8.6-10.6 7882395844) eGFR Calculation mL/min/1.73m2 (Non-) (test code = 0524324134) eGFR Calculation mL/min/1.73m2 () (test code = 3991008195) GILBERTO (test code = GILBERTO) Association of [...] tests). Lab Interpretation Abnormal (test code = 06915-2) [facility] 1 [id number] 23:00:46 No evidence for an acute cardiopulmonary [...] on the March 02, 2020 exam.RL: [id number] [facility]ed[facility] [id number] 22:39:00 Test Item Value Reference Range Interpretation Comments TROPONIN I (test 0.008 ng/mL See_Comment [Automated code = 2250339559) message] The system which generated this result [...] ? Lab Interpretation Normal (test code = 05693-7) [facility]AL [id number] 22:39:00 Test Item Value Reference Range Interpretation Comments NT-proBNP (test code 42 pg/mL See_Comment [Autom ated = 0376618769) message] The system which generated this result transmitted reference range : <=125. The reference range was not used to interpret this result as normal/abnormal . GILBERTO (test code = GILBERTO) Biotin has been reported to cause a negative bias, interpret results relative to patient's use of biotin. Lab Interpretation Normal (test code = 30380-1) [facility] CenterHepatic Function Panel (ALB, T.PRO, BILI T, BU/BC, ALT, AST, ALK PHOS)2020-03-30 22:27:00 Test Item Value Reference Range Interpretation Comments TOTAL BILI (test code = 5663755862) 0.5 mg/dL 0.1-1.1 BILI UNCON (test code = 0758725536) 0.3 mg/dL 0.1-1.1 BILI CONJ (test code = 8424523404) 0.0 mg/dL 0-0.3 T PROTEIN (test code = 4442525202) 6.7 g/dL 6.3-8.2 ALBUMIN (test code = 7580705421) 4.5 g/dL 3.5-5 ALK PHOS (test code = 0598626125) 57 U/L 34-122 ALTv (test code = 1742-6) 31 U/L 5-50 AST(SGOT) (test code = 9586328842) 38 U/L 13-40 Lab Interpretation (test code = Normal 13471-2) [facility] CenterLipase [id number] 22:27:00 Test Item Value Reference Range Interpretation Comments LIPASE (test code = 4671497869) 62 U/L 0-220 Lab Interpretation (test code = Normal 66277-0) [facility] CenteraPTT2020-08-07 22:25:00 Test Item Value Reference Range Interpretation Comments APTT Patient (test code = See_Comment [ Automated message] 3173-2) The system whic h generated this result transmitted ref erence range: 26 - 36 Seconds. The re ference range was not u sed to interpret this result as normal/abnor mal. Lab Interpretation (test Normal code = 54996-6) [facility] CenterProthrombin Time (PT) / [id number] 22:25:00 Test Item Value Reference Range Interpretation [...] tions. Lab Interpretation (test Normal code = 57476-4) [facility] CenterCBC with [id number] 22:17:00 Test Item Value Reference Range Interpretation Comments WBC (test code = See_Comment [Automated 3790-2) message] The sy stem which generated this result transmitted reference range : 4.20 - 10.70 10*3/?L. The reference range was not used to interpret this result as normal/abnormal . RBC (test code = See_Comment L [Automated 765-8) message] The sy stem which generated this [...] RDW-SD (test code = 46.9 fL 38.5-51.6 20429-9) RDW-CV (test code = 14.3 % 12.1-15.4 788-0) PLT (test code = See_Comment [Automated 777-3) message] The sy stem which generated this result transmitted reference range : 150 - 328 10*3/ ?L. The reference r meredith was not used to interpret this result as normal/abnormal . MPV (test code = 10.7 fL 9.8-13 85555-1) NRBC/100 WBC (test See_Comment [Automat ed code = 1724901841) message] The system which generated this result transmitted reference range : 0.0 - 10.0 /100 WBCs. The refer ence range was not u sed to interpret th is result as normal/abnormal . NRBC x10^3 (test code <0.01 See_Comment [Auto mated = 6017407337) message] The s ystem which generated this result transmitted reference range : 10*3/?L. The reference range was not used to interpret this result as normal/abnormal . GRAN MAT (NEUT) % 51.7 % (test code = 770-8) IMM GRAN % (test code 0.40 % = 2487910608) LYMPH % (test code = 32.8 % 736-9) MONO % (test code = 12.4 % 5905-5) EOS % (test code = 2.1 % 713-8) BASO % (test code = 0.6 % 706-2) GRAN MAT x10^3(ANC) 2.76 10*3/uL 1.99-6.95 (test code = 9138178973) IMM GRAN x10^3 (test <0.03 0-0.06 code = 5678776812) LYMPH x10^3 (test code 1.75 10*3/uL 1.09-3.23 = 731-0) MONO x10^3 (test code 0.66 10*3/uL 0.36-1.02 = 742-7) EOS x10^3 (test code = 0.11 10*3/uL 0.06-0.53 711-2) BASO x10^3 (test code 0.03 10*3/uL 0.01-0.09 = 704-7) Lab Interpretation Abnormal (test code = 14696-2) [facility] with Fqhhlevvsxgl4269-81-37 10:26:00 Test Item Value Reference Range Interpretation [...] RDW-SD (test code = 46.3 fL 38.5-51.6 63623-1) RDW-CV (test code = 14.2 % 12.1-15.4 788-0) PLT (test code = See_Comment L [Automated 777-3) message] The sy stem which generated this result transmitted reference range : 150 - 328 10*3/ ?L. The reference r meredith was not used to interpret this result as normal/abnormal . MPV (test code = 10.6 fL 9.8-13 75749-6) NRBC/100 WBC (test See_Comment [Automat ed code = 8962145272) message] The system which generated this result transmitted reference range : 0.0 - 10.0 /100 WBCs. The refer ence range was not u sed to interpret th is result as normal/abnormal . NRBC x10^3 (test code <0.01 See_Comment [Auto mated = 4163904781) message] The s ystem which generated this result transmitted reference range : 10*3/?L. The reference range was not used to interpret this result as normal/abnormal . GRAN MAT (NEUT) % 51.3 % (test code = 770-8) IMM GRAN % (test code 0.30 % = 5103791537) LYMPH % (test code = 32.2 % 736-9) MONO % (test code = 12.7 % 5905-5) EOS % (test code = 3.0 % 713-8) BASO % (test code = 0.5 % 706-2) GRAN MAT x10^3(ANC) 1.89 10*3/uL 1.99-6.95 L (test code = 4980960111) IMM GRAN x10^3 (test <0.03 0-0.06 code = 4143015458) LYMPH x10^3 (test code 1.19 10*3/uL 1.09-3.23 = 731-0) MONO x10^3 (test code 0.47 10*3/uL 0.36-1.02 = 742-7) EOS x10^3 (test code = 0.11 10*3/uL 0.06-0.53 711-2) BASO x10^3 (test code <0.03 0.01-0.09 = 704-7) Lab Interpretation Abnormal (test code = 79967-0) [facility] CenterMagnesium [id number] 10:17:00 Test Item Value Reference Range Interpretation Comments MAGNESIUM (test code = 6405344570) 2.0 mg/dL 1.7-2.4 Lab Interpretation (test code = Normal 10005-5) [facility] Metabolic Panel (NA, K, CL, CO2, GLUCOSE, BUN, CREATININE, CA)2020-03-26 10:17:00 Test Item Value Reference Range Interpretation Comments NA (test code = 136 mmol/L 135-145 9568027804) K (test code = 4.6 mmol/L 3.5-5 Slight 8782479866) hemolysis CL (test code = 109 mmol/L 98-108 H 7401209264) CO2 TOTAL (test code 26 mmol/L 23-31 = 1647815341) AGAP (test code = 2-16 L 5238971220) BUN (test code = 22 mg/dL 7-23 Slight 8485621072) hemolysis GLUCOSE (test code = 82 mg/dL 70-110 1732157170) CREATININE (test code 0.88 mg/dL 0.6-1.25 = 7096883145) CALCIUM (test code = 8.1 mg/dL 8.6-10.6 L 2740890516) eGFR Calculation mL/min/1.73m2 (Non-) (test code = 7192785653) eGFR Calculation mL/min/1.73m2 () (test code = 9550994704) GILBERTO (test code = GILBERTO) Association of [...] tests). Lab Interpretation Abnormal (test code = 72051-1) [facility] CenterLactic Acid Whole [id number] 04:22:00 Test Item Value Reference Range Interpretation Comments LACTIC ACID (test code = 1.52 mmol/L 8085090520) [facility] CenterPhosphorus [id number] 03:37:00 Test Item Value Reference Range Interpretation Comments PHOSPHORUS (test code = 3545810026) 4.6 mg/dL 2.5-5 Lab Interpretation (test code = Normal 37681-8) [facility] CenterMAGNESIUM2020-08-03 03:37:00 Test Item Value Reference Range Interpretation Comments MAGNESIUM (test code = 9500380085) 2.3 mg/dL 1.7-2.4 Lab Interpretation (test code = Normal 70269-1) [facility] CenterCOVID-19 (ID NOW RAPID TESTING)2020-03-26 02:24:00 Test Item Value Reference Range Interpretation Comments SARS-CoV-2 Rapid ID NOW Not Detected Not Detected (test code = 10305-1) GILBERTO (test code = GILBERTO) ID NOW COVID-19 Assay is an isothermal nucleic acid amplification test intended for the qualitative detection of nucleic acid from SARS-CoV-2 viral RNA in nasopharyngeal (PARENT COACH) specimens. It is used under Emergency Use [...] indicated. Lab Interpretation Normal (test code = 24552-5) [facility]CT [facility] W [id number] 01:33:06 Redemonstration of severe dilatation of the [...] No focal bowel inflammation or wall thickening.. [facility] Metabolic Panel (NA, K, CL, CO2, GLUCOSE, BUN, CREATININE, CA)2020-03-26 00:57:00 Test Item Value Reference Range Interpretation Comments NA (test code = 139 mmol/L 135-145 1588294199) K (test code = 4.4 mmol/L 3.5-5 1088348757) CL (test code = 105 mmol/L 98-108 8939376674) CO2 TOTAL (test code = 29 mmol/L 23-31 6870730504) AGAP (test code = 2-16 7587831671) BUN (test code = 28 mg/dL 7-23 H 1147036063) GLUCOSE (test code = 84 mg/dL 70-110 4156599999) CREATININE (test code = 1.19 mg/dL 0.6-1.25 1915683804) CALCIUM (test code = 8.9 mg/dL 8.6-10.6 9154323642) eGFR Calculation mL/min/1.73m2 (Non-) (test code = 2724888558) eGFR Calculation mL/min/1.73m2 () (test code = 6219413799) GILBERTO (test code = GILBERTO) Association of [...] tests). Lab Interpretation Abnormal (test code = 13733-5) [facility] Function [facility] (ALB, T.PRO, BILI T, BU/BC, ALT, AST, ALK PHOS)2020-03-26 00:57:00 Test Item Value Reference Range Interpretation Comments TOTAL BILI (test code = 6623963508) 0.2 mg/dL 0.1-1.1 BILI UNCON (test code = 9650071911) 0.0 mg/dL 0.1-1.1 L BILI CONJ (test code = 8097872818) 0.0 mg/dL 0-0.3 T PROTEIN (test code = 3583766924) 6.2 g/dL 6.3-8.2 L ALBUMIN (test code = 1142264115) 4.1 g/dL 3.5-5 ALK PHOS (test code = 3440966015) 56 U/L 34-122 ALTv (test code = 1742-6) 24 U/L 5-50 AST(SGOT) (test code = 6951871179) 28 U/L 13-40 Lab Interpretation (test code = Abnormal 79921-9) [facility] with Otixixwhfpvb8332-28-96 00:47:00 Test Item Value Reference Range Interpretation [...] RDW-SD (test code = 45.9 fL 38.5-51.6 44788-4) RDW-CV (test code = 14.0 % 12.1-15.4 788-0) PLT (test code = See_Comment [Automated 777-3) message] The sy stem which generated this result transmitted reference range : 150 - 328 10*3/ ?L. The reference r meredith was not used to interpret this result as normal/abnormal . MPV (test code = 10.9 fL 9.8-13 83867-8) NRBC/100 WBC (test See_Comment [Automat ed code = 1706177088) message] The system which generated this result transmitted reference range : 0.0 - 10.0 /100 WBCs. The refer ence range was not u sed to interpret th is result as normal/abnormal . NRBC x10^3 (test code <0.01 See_Comment [Auto mated = 2130768983) message] The s ystem which generated this result transmitted reference range : 10*3/?L. The reference range was not used to interpret this result as normal/abnormal . GRAN MAT (NEUT) % 49.8 % (test code = 770-8) IMM GRAN % (test code 0.20 % = 4814068995) LYMPH % (test code = 32.0 % 736-9) MONO % (test code = 14.3 % 5905-5) EOS % (test code = 3.0 % 713-8) BASO % (test code = 0.7 % 706-2) GRAN MAT x10^3(ANC) 2.29 10*3/uL 1.99-6.95 (test code = 0687079932) IMM GRAN x10^3 (test <0.03 0-0.06 code = 9510144061) LYMPH x10^3 (test code 1.47 10*3/uL 1.09-3.23 = 731-0) MONO x10^3 (test code 0.66 10*3/uL 0.36-1.02 = 742-7) EOS x10^3 (test code = 0.14 10*3/uL 0.06-0.53 711-2) BASO x10^3 (test code 0.03 10*3/uL 0.01-0.09 = 704-7) Lab Interpretation Abnormal (test code = 04671-4) [facility] CenterMagnesium [id number] 05:23:00 Test Item Value Reference Range Interpretation Comments MAGNESIUM (test code = 6268041509) 2.1 mg/dL 1.7-2.4 Lab Interpretation (test code = Normal 93088-2) [facility] CenterCOVID-[facility] (ID NOW RAPID TESTING)2020-03-03 04:45:00 Test Item Value Reference Range Interpretation Comments SARS-CoV-2 Rapid ID NOW Not Detected Not Detected (test code = 77586-2) GILBERTO (test code = GILBERTO) ID NOW COVID-19 Assay is an isothermal nucleic acid amplification test intended for the qualitative detection of nucleic acid from SARS-CoV-2 viral RNA in nasopharyngeal (PARENT COACH) specimens. It is used under Emergency Use [...] indicated. Lab Interpretation Normal (test code = 95066-0) [facility] CenterProthrombin Time / [id number] 04:40:00 Test Item Value Reference Range Interpretation Comments PROTIME PATIENT (test See_Comment [Auto mated message] code = 5964-2) The system [employer] generated this result transmitted ref erence range: 10.1 - 1 2.6 Seconds. The re ference range was not u sed to interpret this result as normal/abnor mal. INR (test code = 6301-6) Nor mal INR <1.1; Warfarin Therap eutic range 2.0 to 3. 0 or 2.5 to 3.5, dep ending upon the indica tions. Lab Interpretation (test Normal code = 18085-5) [facility] CenteraPTT2020-07-11 04:40:00 Test Item Value Reference Range Interpretation Comments APTT Patient (test code = See_Comment [ Automated message] 3173-2) The system [employer] generated this result transmitted ref erence range: 26 - 36 Seconds. The re ference range was not u sed to interpret this result as normal/abnor mal. Lab Interpretation (test Normal code = 64057-4) [facility] CenterPhosphorus [id number] 04:31:00 Test Item Value Reference Range Interpretation Comments PHOSPHORUS (test code = 9989215271) 4.0 mg/dL 2.5-5 Lab Interpretation (test code = Normal 09446-3) [facility] CenterXR ABDOMEN ACUTE [id number] 02:54:09 Impression: No radiographic evidence for acute cardiopulmonary disease. No radiographic evidence forpneumoperitoneum. Marked gaseous distention of predominantly large bowel loops in the abdomenand pelvis, similar to prior CT of 02/26/2020. On that CT, there was atransition in the distal descending colon, without mass lesion or definitesigmoid volvulus appreciated. RL: 460 AFC: [id number] Indication: Diffuse abdominal pain, obstructionComparison: CT the [...] lesion or definitesigmoid volvulus appreciated. RL: 460AFC: 48851Cxxgexobegodpb signed by Angeli Carrillo MD, PhD at 03/02/2020 9:[address] [facility] CenterUrinalysis2020-07-11 01:50:00 Test Item Value Reference Range Interpretation Comments APPEARANCE (test code = Hazy Clear A 3847514584) COLOR (test code = Tahira Yellow A 8105698040) PH (test code = 4.8-8.0 9875654126) SP GRAVITY (test code = 1.003-1.030 6156537709) GLU U QUAL (test code = Normal Normal 4889939294) BLOOD (test code = Negative Negative 9601513279) KETONES (test code = 5 mg/dL Negative A 0789340606) PROTEIN (test code = Negative Negative 2887-8) UROBILIN (test code = 2.0 mg/dL Normal A 7644197784) BILIRUBIN (test code = Negative Negative 6919789707) NITRITE (test code = Negative Negative 2866243866) LEUK ROGER (test code = Negative Negative 9030672438) RBC/HPF (test code = See_Comment [Autom ated message] 4446431794) The system [employer] generated this result transmit dain reference range : 0 - 3 HPF. The refe rence range was not u sed to interpret th is result as normal/abnormal . WBC/HPF (test code = See_Comment [Autom ated message] 5117861096) The system [employer] generated this result transmit dain reference range : 0 - 5 HPF. The refe rence range was not u sed to interpret th is result as normal/abnormal . BACTERIA (test code = Negative Negative 8749090645) MUCOUS (test code = Slight Negative LPF A 4594429197) SQ EPITH (test code = <1 See_Comment [Auto mated message] 6168087195) The system [employer] generated this result transmit dain reference range : <=2 HPF. The refere nce range was not u sed to interpret th is result as normal/abnormal . CA OXALATE (test code = See_Comment H [Au tomated message] 2550397654) The system [employer] generated this result transmit dain reference range : <=1 HPF. The refere nce range was not u sed to interpret th is result as normal/abnormal . SPERM (test code = See_Comment [Automat ed message] 7017845492) The system [employer] generated this result transmit dain reference range : <=1 HPF. The refere nce range was not u sed to interpret th is result as normal/abnormal . Lab Interpretation (test Abnormal code = 70069-6) [facility] CenterBatrist[facility] (NA, K, CL, CO2, GLUCOSE, BUN, CREATININE, CA)2020-03-03 01:44:00 Test Item Value Reference Range Interpretation Comments NA (test code = 140 mmol/L 135-145 7863200182) K (test code = 4.1 mmol/L 3.5-5 5723453450) CL (test code = 106 mmol/L 98-108 9477281017) CO2 TOTAL (test code = 25 mmol/L 23-31 2066429331) AGAP (test code = 2-16 6942304738) BUN (test code = 17 mg/dL 7-23 4942084815) GLUCOSE (test code = 91 mg/dL 70-110 2981285868) CREATININE (test code 1.13 mg/dL 0.6-1.25 = 3231167941) CALCIUM (test code = 9.0 mg/dL 8.6-10.6 6151268163) eGFR Calculation mL/min/1.73m2 (Non-) (test code = 2794280401) eGFR Calculation mL/min/1.73m2 () (test code = 9227742366) GILBERTO (test code = GILBERTO) Association of [...] or urine or abnormalities in imaging tests). [facility] (ALB, T.PRO, BILI T, BU/BC, ALT, AST, ALK PHOS)2020-03-03 01:44:00 Test Item Value Reference Range Interpretation Comments TOTAL BILI (test code = 5167785020) 0.4 mg/dL 0.1-1.1 BILI UNCON (test code = 3175140024) 0.4 mg/dL 0.1-1.1 BILI CONJ (test code = 0313006057) 0.0 mg/dL 0-0.3 T PROTEIN (test code = 4068299676) 6.3 g/dL 6.3-8.2 ALBUMIN (test code = 2472241683) 4.2 g/dL 3.5-5 ALK PHOS (test code = 9964145627) 43 U/L 34-122 ALTv (test code = 1742-6) 20 U/L 5-50 AST(SGOT) (test code = 6619510760) 26 U/L 13-40 Lab Interpretation (test code = Normal 38027-5) [facility] WITH [id number] 01:37:00 Test Item Value Reference Range Interpretation [...] RDW-SD (test code = 45.0 fL 38.5-51.6 58519-4) RDW-CV (test code = 13.7 % 12.1-15.4 788-0) PLT (test code = See_Comment [Automated 777-3) message] The sy stem which generated this result transmitted reference range : 150 - 328 10*3/ ?L. The reference r meredith was not used to interpret this result as normal/abnormal . MPV (test code = 11.3 fL 9.8-13 68487-6) NRBC/100 WBC (test See_Comment [Automat ed code = 4873527068) message] The system which generated this result transmitted reference range : 0.0 - 10.0 /100 WBCs. The refer ence range was not u sed to interpret th is result as normal/abnormal . NRBC x10^3 (test code <0.01 See_Comment [Auto mated = 6120675514) message] The s ystem which generated this result transmitted reference range : 10*3/?L. The reference range was not used to interpret this result as normal/abnormal . GRAN MAT (NEUT) % 53.2 % (test code = 770-8) IMM GRAN % (test code 0.20 % = 5545945311) LYMPH % (test code = 34.5 % 736-9) MONO % (test code = 9.7 % 5905-5) EOS % (test code = 1.8 % 713-8) BASO % (test code = 0.6 % 706-2) GRAN MAT x10^3(ANC) 2.69 10*3/uL 1.99-6.95 (test code = 2473253297) IMM GRAN x10^3 (test <0.03 0-0.06 code = 0200192277) LYMPH x10^3 (test code 1.74 10*3/uL 1.09-3.23 = 731-0) MONO x10^3 (test code 0.49 10*3/uL 0.36-1.02 = 742-7) EOS x10^3 (test code = 0.09 10*3/uL 0.06-0.53 711-2) BASO x10^3 (test code 0.03 10*3/uL 0.01-0.09 = 704-7) Lab Interpretation Abnormal (test code = 71361-9) [facility] CenterLactic Acid Whole [id number] 01:28:00 Test Item Value Reference Range Interpretation Comments LACTIC ACID (test code = 1.62 mmol/L 0677802858) [facility] CenterDRUG PANEL 2 [id number] 22:13:00 Test Item Value Reference Range Interpretation Comments AMPHET (test code = Negative Negative 6670204061) LOS U (test code = Negative Negative 4432907336) BENZO U (test code = Negative Negative 3800354441) Cocaine Metabolite (test Negative Negative code = 3277935365) METHADONE (test code = Negative Negative 5104310805) OPIATES (test code = Negative Negative 8224255317) PCP (test code = Negative Negative 6176861977) THC (test code = Negative Negative 6554582360) GILBERTO (test code = GILBERTO) Urine Drug [...] testing). Lab Interpretation (test Normal code = 14291-8) [facility] CenterTHYROID STIMULATING [id number] 19:02:00 Test Item Value Reference Range Interpretation Comments TSH (test code = See_Comment [Automated message] 0066060200) The system [employer] generated this result transmitted ref erence range: 0.45 - 4 .70 mIU/L. The refe rence range was not u sed to interpret this result as normal/abnor mal. Lab Interpretation (test Normal code = 40430-4) [facility] CenterFREE [id number] 18:49:00 Test Item Value Reference Range Interpretation Comments FREE T3 (test code = 1362219443) 2.56 pg/mL 2.77-5.27 L Lab Interpretation (test code = Abnormal 88966-7) [facility] [id number] 18:49:00 Test Item Value Reference Range Interpretation Comments FREE T4 (test code = See_Comment [Autom ated message] 8457748319) The system [employer] generated this result transmitted ref erence range: 0.78 - 2 .20 ng/dL:. The ref erence range was not u sed to interpret this result as normal/abnor mal. Lab Interpretation (test Normal code = 54125-5) [facility]CT [facility] PEL[facility] W [id number] 20:56:47 Persistent marked severe dilatation of the [...] No focal hepatic lesions. Normal contour. Hepatomegaly, hhjpxwwny48.7 cm, in the craniocaudal dimension. Diffuse hypoattenuation [...] this study and agree withthe above report. [facility]COVID[facility] (ID NOW RAPID TESTING)2020-02-26 07:03:00 Test Item Value Reference Range Interpretation Comments SARS-CoV-2 Rapid ID NOW Not Detected Not Detected (test code = 38489-4) GILBERTO (test code = GILBERTO) ID NOW COVID-19 Assay is an isothermal nucleic acid amplification test intended for the qualitative detection of nucleic acid from SARS-CoV-2 viral RNA in nasopharyngeal (PARENT COACH) specimens. It is used under Emergency Use [...] indicated. Lab Interpretation Normal (test code = 78098-0) [facility] [id number] 05:00:33 Impression: No radiographic evidence for acute cardiopulmonary disease. Marked gaseous distention ofthe colon, with a relative paucity of gas inthe distal sigmoid colon and rectum. This may reflect pseudoobstruction,but mechanical distal colonic obstruction cannot be excluded. RL: 460 AFC: 92598 Ordering physician: SABI Briggsdication: Abdominal distention Comparison: [...] - 02/26/2020 12:02 AM CDTOrdering physician: SABI Briggsdication: Abdominal distentionComparison: NoneFindi ngs: AP view of [...] distal colonic obstruction cannot be excluded.RL: 460AF: [id number] signed by Angeli Carrillo MD, PhD at 02/26/2020 12:00 [facility]Un[facility] (NA, K, CL, CO2, GLUCOSE, BUN, CREATININE, CA)2020-02-26 04:03:00 Test Item Value Reference Range Interpretation Comments NA (test code = 142 mmol/L 135-145 2505689954) K (test code = 4.1 mmol/L 3.5-5 1617628829) CL (test code = 107 mmol/L 98-108 3695357896) CO2 TOTAL (test code = 29 mmol/L 23-31 9816973788) AGAP (test code = 2-16 8311385771) BUN (test code = 13 mg/dL 7-23 9700275132) GLUCOSE (test code = 82 mg/dL 70-110 5146480631) CREATININE (test code 1.14 mg/dL 0.6-1.25 = 7882559228) CALCIUM (test code = 9.5 mg/dL 8.6-10.6 2328378684) eGFR Calculation mL/min/1.73m2 (Non-) (test code = 9746379570) eGFR Calculation mL/min/1.73m2 () (test code = 9002433298) GILBERTO (test code = GILBERTO) Association of [...] or urine or abnormalities in imaging tests). [facility] (ALB, T.PRO, BILI T, BU/BC, ALT, AST, ALK PHOS)2020-02-26 04:03:00 Test Item Value Reference Range Interpretation Comments TOTAL BILI (test code = 5333922229) 0.5 mg/dL 0.1-1.1 BILI UNCON (test code = 0280669469) 0.5 mg/dL 0.1-1.1 BILI CONJ (test code = 9176077958) 0.0 mg/dL 0-0.3 T PROTEIN (test code = 9711957421) 6.2 g/dL 6.3-8.2 L ALBUMIN (test code = 0265570967) 4.2 g/dL 3.5-5 ALK PHOS (test code = 9153019500) 40 U/L 34-122 ALTv (test code = 1742-6) 20 U/L 5-50 AST(SGOT) (test code = 3777612686) 26 U/L 13-40 Lab Interpretation (test code = Abnormal 18062-2) [facility] [id number] 04:03:00 Test Item Value Reference Range Interpretation Comments LIPASE (test code = 2482300301) 57 U/L 0-220 Lab Interpretation (test code = Normal 34367-0) [facility] Whole [id number] 03:52:00 Test Item Value Reference Range Interpretation Comments LACTIC ACID (test code = 1.66 mmol/L 0.5-2.2 7374368287) [facility]CBC WITH [id number] 03:47:00 Test Item Value Reference Range Interpretation [...] RDW-SD (test code = 45.1 fL 38.5-51.6 11229-4) RDW-CV (test code = 13.7 % 12.1-15.4 788-0) PLT (test code = See_Comment [Automated 777-3) message] The sy stem which generated this result transmitted reference range : 150 - 328 10*3/ ?L. The reference r meredith was not used to interpret this result as normal/abnormal . MPV (test code = 10.7 fL 9.8-13 27581-7) NRBC/100 WBC (test See_Comment [Automat ed code = 8044451272) message] The system which generated this result transmitted reference range : 0.0 - 10.0 /100 WBCs. The refer ence range was not u sed to interpret th is result as normal/abnormal . NRBC x10^3 (test code <0.01 See_Comment [Auto mated = 3858543907) message] The s ystem which generated this result transmitted reference range : 10*3/?L. The reference range was not used to interpret this result as normal/abnormal . GRAN MAT (NEUT) % 63.1 % (test code = 770-8) IMM GRAN % (test code 0.40 % = 3490250061) LYMPH % (test code = 25.1 % 736-9) MONO % (test code = 9.9 % 5905-5) EOS % (test code = 1.1 % 713-8) BASO % (test code = 0.4 % 706-2) GRAN MAT x10^3(ANC) 3.52 10*3/uL 1.99-6.95 (test code = 4959382322) IMM GRAN x10^3 (test <0.03 0-0.06 code = 9866172541) LYMPH x10^3 (test code 1.40 10*3/uL 1.09-3.23 = 731-0) MONO x10^3 (test code 0.55 10*3/uL 0.36-1.02 = 742-7) EOS x10^3 (test code = 0.06 10*3/uL 0.06-0.53 711-2) BASO x10^3 (test code <0.03 0.01-0.09 = 704-7) Lab Interpretation Abnormal (test code = 90306-6) [facility] 1 [id number] 12:53:00 Name: DORA JOSEPH [facility] : 1970 Age/S: 50 / M [address] Unit #: [id number] Loc: [place] [address] 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 Acct: [id number] Dis Date: Status: ADM IN PHONE#: [phone] Exam Date: 02/25/2020 1036 FAX #: Reason: abdominal distention EXAMS: CPT: [id number] ABDOMEN 1 V 21332 Fluoro Time: DAP (Gy m2): Air Kerma (mGy): Location: B2 EXAM: ABDOMEN AP History: Abdominal distention Comparison: CT abdomen and pelvis dated 02/23/2020. Multiple prior abdominal radiographs. Findings: The lung bases are grossly clear. Redemonstrated are markedly dilated, gas-filled small and large bowel loops, filling and distending the abdomen. There is gas in the rectum. These a ppear progressed as prior exam with increased distention of small bowel loops in the left lower quadrant (not previously seen) The osseous structures appear normal. Impression: Redemonstrated are markedly dilated, gas-filled small and large bowel loops, filling and distending the abdomen. These appearprogressed as prior exam with increased distention of small bowel loops in the left lower quadrant (not previously seen) at 1253 Reported and signed by: Sol Keita MD CC: Andre Solano; Mark Perea MD PAGE 1 Signed Report Name: DORA JOSEPH [facility] : 1970 Age/S: 50 / M [address] Unit #: [id number] Loc: [place] [address] 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 Acct: [id number] Dis Date: Status: ADM IN PHONE #: [phone] Exam Date: 02/25/2020 1036 FAX #: Reason: abdominal distention EXAMS:CPT: [id number] XR ABDOMEN 1 V 98997 Fluoro Time: DAP (Gy m2): Air Kerma (mGy): <Continued> Technologist: Nichole Dill RT(R) Trnscb Date/Time: 02/25/2020 (9923) [email or web address] Orig Print D/T: S: 02/25/2020 (1256) PAGE 2 Signed Report COMPREHENSIVE METABOLIC [id number] 08:20:00 Test Item Value Reference Range Interpretation [...] 50-136 L TOTAL (test code = ALKP) [id number] 08:20:00 Test Item Value Reference Range Interpretation Comments MAGNESIUM (test code = MAG) 2.2 MG/DL 1.8-2.4 N THYROID STIMULATING [id number] 08:20:00 Test Item Value Reference Range Interpretation Comments THYROID STIMULATING HORMONE 5.430 mcIU/ML 0.340-4.820 H (test code = TSH) CBC W/AUTO [id number] 07:55:00 Test Item Value Reference Range Interpretation [...] N NRBC#) UA RFLX MICR CULT IF [id number] 12:29:00 Test Item Value Reference Range Interpretation [...] culture: Suprapubic PainUA RFLX MICR CULT IF [id number] 12:29:00 Test Item Value Reference Range Interpretation [...] for culture: Suprapubic PainCOVID 19 Asymptomatic IH [id number] 22:09:00 Test Item Value Reference Range Interpretation [...] tent with COVID-19. - CT ABD PELVIS W/ABNN7897-51-03 21:10:00 Name: DORA JOSEPH [facility] : 1970 Age/S: 50 / M [address] Unit #: [id number] Loc: [place] [address] Phys: Evin Castellanos MD Acct: [id number] Dis Date: Status: REG ER PHONE #: [phone] Exam Date: 02/23/20202047 FAX #: Reason: diffuse abdomen pain and distention EXAMS: CPT: [id number] CT ABD PELVIS W/CONT 25368 EXAM: - CT ABD PELVIS W/CONT LOCATION: [...] 1 Signed Report (CONTINUED) Name: ADINA JOSEPH [place] : 1970 Age/S: 50 / M [address] Unit #: [id number] Loc: [place] [address] Phys: Evin Castellanos MD Acct: [id number] Dis Date: Status: REG ER PHONE #: [phone] Exam Date: 02/23/20202047 FAX #: Reason: diffuse abdomen pain and distention EXAMS: CPT: [id number] CT ABD PELVIS W/CONT 07277 <Continued> CT. No bowel wall thickening or pneumatosis. There arepostsurgical change of appendectomy. GENITOURINARY ORGANS: Prostatic calcifications [...] by: Marybel José M.D. CC: Susana Meza PARENT COACH; Carl Luevano MD Technologist:Rudy Zuniga, RT(R)(CT)(MRI) CTDI: DLP: Trnscb Date/Time: 02/23/2020 (2109) [email or web address] Orig Print D/T: S: 02/23/2020 (2112) PAGE 2 Signed Report- XR CHEST 1 [id number] 21:03:00 Name: DORA JOSEPH [place] : 1970 Age/S: 50 / M [address] Unit #: [id number] Loc: [place] [address] Phys: Evin Castellanos MD Acct: [id number] Dis Date: Status: REG ER PHONE #: [phone] Exam Date: 02/23/20202055 FAX #: Reason: Code Sepsis EXAMS: CPT: [id number] XRCHEST 1 V 02194 Fluoro Time: DAP (Gy m2): Air Kerma (mGy): DICTATION LOCATION: [facility] HISTORY: Male, 50 years of age with [...] disease. 2. Chronic colonic air distention unchanged. [id number] Reported and signed by: Monica Quijano MD CC: Susana Meza PARENT COACH; Carl Luevano MD PAGE 1 Signed Report Name: DORA JOSEPH [place] : 1970 Age/S: 50 / M [address] Unit #: [id number] Loc: [place] [address] Phys: Evin Castellanos MD Acct: [id number] Dis Date:Status: REG ER PHONE #: [phone] Exam Date: 02/23/20202055 FAX #: Reason: Code Sepsis EXAMS: CPT: [id number] XR CHEST 1 V 50407 Fluoro Time: DAP (Gy m2): Air Kerma (mGy): <Continued> Technologist: Rudy Zuniga, RT(R)(CT)(MRI) Trnscb Date/Time: 02/23/2020 (2102) Alanis Orig Print D/T: S:02/23/2020 (2106) PAGE 2 Signed ReportBASIC METABOLIC [id number] 20:02:00 Test Item Value Reference Range Interpretation [...] 8.5-10.1 N Completed by Nursing: NOHEPATIC FUNCTION [id number] 20:02:00 Test Item Value Reference Range Interpretation [...] N code = ALKP) Completed by Nursing: [id number] 20:02:00 Test Item Value Reference Range Interpretation Comments LIPASE (test code = LIP) 97 Unit/L 114-286 L Completed by Nursing: [id number]-P3438-21-02 20:02:00 Test Item Value Reference Range Interpretation [...] brittani yby method. Completed by Nursing: NOLACTIC [id number] 19:59:00 Test Item Value Reference Range Interpretation Comments LACTIC ACID (test code = LACT) 1.2 mmol/L 0.4-2.0 N CBC W/AUTO [id number] 19:46:00 Test Item Value Reference Range Interpretation [...] CRITERIA = MDIFF) - XR ABDOMEN 2 [id number] 06:22:00 Name: DORA JOSEPH [facility] : 1970 Age/S: 50 / M [address] Unit #: [id number] Loc: [place] [address] Phys: Leonidas Robertson MD Acct: [id number] Dis Date: Status: ADM IN PHONE #: [phone] Exam Date: 02/19/2020 0443 FAX #: Reason: megacolon EXAMS: CPT: [id number] XRABDOMEN 2 V 92814 Fluoro Time: DAP (Gy m2): Air Kerma [...] Hospital : 1970 Age/S: 50 / M [address] Unit #: [id number] Loc: [place] [address] Phys: Leonidas Robertson MD Acct: [id number] Dis Date: Status: ADM IN PHONE #: [phone] Exam Date: 02/19/2020 044 FAX #: Reason: megacolon EXAMS: CPT: [id number] XR ABDOMEN 2 V 03460 Fluoro Time: DAP (Gy m2): Air Kerma (mGy): <Continued> Techn ologist: Carrie Barnett, RT(R)(CT) Trnscb Date/Time: 02/19/2020 (621) [email or web address] Orig Print D/T:S: 02/19/2020 (06) PAGE 2 Signed ReportBASIC METABOLIC [id number] 05:52:00 Test Item Value Reference Range Interpretation [...] CA) 8.5 MG/DL 8.5-10.1 N CBC W/AUTO [id number] 05:40:00 Test Item Value Reference Range Interpretation [...] NO DIFF/SCN CRITERIA = MDIFF) BASIC METABOLIC [id number] 06:52:00 Test Item Value Reference Range Interpretation [...] CA) 8.3 MG/DL 8.5-10.1 L CBC W/AUTO [id number] 06:39:00 Test Item Value Reference Range Interpretation [...] DIFF/SCN CRITERIA = MDIFF) Coronavirus 2018 nCoV [id number] 05:35:00 Test Item Value Reference Range Interpretation Comments Coronavirus 2019 nCoV Negative NEGATIVE Per sindi chavezurehelena, Bedside (test code = negativ e results [...] NA (test code = 139 mmol/L 135-145 8208139276) K (test code = 4.3 mmol/L 3.5-5 8984397688) CL (test code = 105 mmol/L 98-108 3363827696) CO2 TOTAL (test code = 30 mmol/L 23-31 4440314041) AGAP (test code = 2-16 4982914879) BUN (test code = 6 mg/dL 7-23 L 8396318635) GLUCOSE (test code = 94 mg/dL 70-110 0395448720) CREATININE (test code = 1.07 mg/dL 0.6-1.25 1162837695) CALCIUM (test code = 9.3 mg/dL 8.6-10.6 6562065202) eGFR Calculation mL/min/1.73m2 (Non-) (test code = 8598994496) eGFR Calculation mL/min/1.73m2 () (test code = 6548730757) GILBERTO (test code = GILBERTO) Association of [...] tests). Lab Interpretation Abnormal (test code = 55045-6) [facility]UM2020-06-12 16:58:00 Test Item Value Reference Range Interpretation Comments MAGNESIUM (test code = 8806366825) 2.0 mg/dL 1.7-2.4 Lab Interpretation (test code = Normal 02165-4) [facility] [id number] 17:02:411. Interval worsening of air distended loops [...] with cecum measuring up to [address] [facility] WITH [id number] 07:20:00 Test Item Value Reference Range Interpretation Comments WBC (test code = See_Comment L [Automated 6990-2) message] The sy stem which generated this result transmitted reference range : 4.20 - 10.70 10*3/?L. The reference range was not used to interpret this result as normal/abnormal . RBC (test code = See_Comment [Automated 940-8) message] The sy stem which generated this [...] RDW-SD (test code = 46.5 fL 38.5-51.6 74226-8) RDW-CV (test code = 13.9 % 12.1-15.4 788-0) PLT (test code = See_Comment L [Automated 777-3) message] The sy stem which generated this result transmitted reference range : 150 - 328 10*3/ ?L. The reference r meredith was not used to interpret this result as normal/abnormal . MPV (test code = 10.7 fL 9.8-13 43544-1) NRBC/100 WBC (test See_Comment [Automat ed code = 0832008857) message] The system which generated this result transmitted reference range : 0.0 - 10.0 /100 WBCs. The refer ence range was not u sed to interpret th is result as normal/abnormal . NRBC x10^3 (test code <0.01 See_Comment [Auto mated = 1620357832) message] The s ystem which generated this result transmitted reference range : 10*3/?L. The reference range was not used to interpret this result as normal/abnormal . GRAN MAT (NEUT) % 48.6 % (test code = 770-8) IMM GRAN % (test code 0.20 % = 0709184508) LYMPH % (test code = 39.6 % 736-9) MONO % (test code = 8.4 % 5905-5) EOS % (test code = 2.7 % 713-8) BASO % (test code = 0.5 % 706-2) GRAN MAT x10^3(ANC) 1.96 10*3/uL 1.99-6.95 L (test code = 1687198677) IMM GRAN x10^3 (test <0.03 0-0.06 code = 1796554902) LYMPH x10^3 (test code 1.60 10*3/uL 1.09-3.23 = 731-0) MONO x10^3 (test code 0.34 10*3/uL 0.36-1.02 L = 742-7) EOS x10^3 (test code = 0.11 10*3/uL 0.06-0.53 711-2) BASO x10^3 (test code <0.03 0.01-0.09 = 704-7) Lab Interpretation Abnormal (test code = 94816-9) [facility] METABOLIC PANEL (NA, K, CL, CO2, GLUCOSE, BUN, CREATININE, CA)2020-01-31 06:32:00 Test Item Value Reference Range Interpretation Comments NA (test code = 138 mmol/L 135-145 8701201394) K (test code = 4.2 mmol/L 3.5-5 Slight 6697603632) hemolysis CL (test code = 108 mmol/L 98-108 7244251758) CO2 TOTAL (test code 22 mmol/L 23-31 L = 5797535896) AGAP (test code = 2-16 0354343493) BUN (test code = 7 mg/dL 7-23 Slight 3640784829) hemolysis GLUCOSE (test code = 92 mg/dL 70-110 1005521931) CREATININE (test code 1.02 mg/dL 0.6-1.25 = 5576247965) CALCIUM (test code = 8.9 mg/dL 8.6-10.6 7532432353) eGFR Calculation mL/min/1.73m2 (Non-) (test code = 9731271533) eGFR Calculation mL/min/1.73m2 () (test code = 3948443578) GILBERTO (test code = GILBERTO) Association of [...] tests). Lab Interpretation Abnormal (test code = 19566-6) [facility] WITH [id number] 11:00:00 Test Item Value Reference Range Interpretation [...] RDW-SD (test code = 48.7 fL 38.5-51.6 77679-5) RDW-CV (test code = 14.4 % 12.1-15.4 788-0) PLT (test code = See_Comment L [Automated 777-3) message] The sy stem which generated this result transmitted reference range : 150 - 328 10*3/ ?L. The reference r meredith was not used to interpret this result as normal/abnormal . MPV (test code = 10.7 fL 9.8-13 26114-8) IPF % (test code = 5.1 % 1.2-10.7 Platelet count 0334720342) measured by fluorescence method. NRBC/100 WBC (test See_Comment [Automat ed code = 2966379850) message] The system which generated this result transmitted reference range : 0.0 - 10.0 /100 WBCs. The refer ence range was not u sed to interpret th is result as normal/abnormal . NRBC x10^3 (test code <0.01 See_Comment [Auto mated = 9654528644) message] The s ystem which generated this result transmitted reference range : 10*3/?L. The reference range was not used to interpret this result as normal/abnormal . SEG % (test code = 53 % 33-76 34284-4) BAND % (test code = 1 % 0-1 49909-9) LYMPH % (test code = 39 % 14-54 02408-2) MONO % (test code = 4 % 0-4 22895-4) EOS % (test code = 3 % 0-3 84481-2) ANC (test code = 1.93 10*3/uL 1.99-6.95 L 9039167700) Lab Interpretation Abnormal (test code = 89690-0) [facility] Metabolic Panel (NA, K, CL, CO2, GLUCOSE, BUN, CREATININE, CA)2020-01-29 10:23:00 Test Item Value Reference Range Interpretation Comments NA (test code = 138 mmol/L 135-145 4353348269) K (test code = 4.0 mmol/L 3.5-5 0077620014) CL (test code = 109 mmol/L 98-108 H 4211829523) CO2 TOTAL (test code = 27 mmol/L 23-31 7894160364) AGAP (test code = 2-16 0765891122) BUN (test code = 16 mg/dL 7-23 4490534177) GLUCOSE (test code = 81 mg/dL 70-110 1279459177) CREATININE (test code = 1.14 mg/dL 0.6-1.25 0367060732) CALCIUM (test code = 8.6 mg/dL 8.6-10.6 0508023812) eGFR Calculation mL/min/1.73m2 (Non-) (test code = 3834495688) eGFR Calculation mL/min/1.73m2 () (test code = 6003382680) GILBERTO (test code = GILBERTO) Association of [...] tests). Lab Interpretation Abnormal (test code = 64526-1) [facility]ON[facility] COVID-19 [id number] 04:27:00 Test Item Value Reference Range Interpretation Comments SARS-CoV-2 Rapid ID NOW Not Detected Not Detected (test code = 42792-7) GILBERTO (test code = GILBERTO) ID NOW COVID-19 Assay is an isothermal nucleic acid amplification test intended for the qualitative detection of nucleic acid from SARS-CoV-2 viral RNA in nasopharyngeal (PARENT COACH) specimens. It is used under Emergency Use [...] indicated. Lab Interpretation Normal (test code = 45696-5) [facility] CenterL[facility] Acid Whole [id number] 04:10:00 Test Item Value Reference Range Interpretation Comments LACTIC ACID (test code = 1.74 mmol/L 0.5-2.2 1122458591) [facility] CenterCOVID[facility] (ID NOW RAPID TESTING)2020-01-29 02:17:00 Test Item Value Reference Range Interpretation Comments SARS-CoV-2 Rapid ID NOW Not Detected Not Detected (test code = 00974-0) GILBERTO (test code = GILBERTO) ID NOW COVID-19 Assay is an isothermal nucleic acid amplification test intended for the qualitative detection of nucleic acid from SARS-CoV-2 viral RNA in nasopharyngeal (PARENT COACH) specimens. It is used under Emergency Use [...] indicated. Lab Interpretation Normal (test code = 96129-7) [facility] CenterUrinalysis2020-06-07 02:14:00 Test Item Value Reference Range Interpretation Comments APPEARANCE (test code = Clear Clear 3340156983) COLOR (test code = Dark Yellow Yellow A 7503934503) PH (test code = 4.8-8.0 5215540289) SP GRAVITY (test code = 1.003-1.030 H 7875724240) GLU U QUAL (test code = Normal Normal 9136387354) BLOOD (test code = 1+ Negative A 0115443057) KETONES (test code = 5 mg/dL Negative A 2743219782) PROTEIN (test code = Negative Negative 2887-8) UROBILIN (test code = Normal Normal 4428737931) BILIRUBIN (test code = Negative Negative 1256573522) NITRITE (test code = Negative Negative 0502220235) LEUK ROGER (test code = Negative Negative 5542289256) RBC/HPF (test code = See_Comment H [Autom ated 4001854327) message] The sy stem which generated this result transmitted reference range : 0 - 3 HPF. The reference range was not used to interpret this result as normal/abnormal . WBC/HPF (test code = See_Comment [Autom ated 5032736119) message] The sy stem which generated this result transmitted reference range : 0 - 5 HPF. The reference range was not used to interpret this result as normal/abnormal . BACTERIA (test code = Moderate Negative A 2938310135) MUCOUS (test code = Slight Negative LPF A 3884589795) AMORPHOUS (test code = Rare Rare HPF 2487462170) SQ EPITH (test code = <1 See_Comment [Auto mated 2580670645) message] The sy stem which generated this result transmitted reference range : <=2 HPF. The reference range was not used to interpret this result as normal/abnormal . CA OXALATE (test code = See_Comment H [Au tomated 0209035998) message] The sy stem which generated this result transmitted reference range : <=1 HPF. The reference range was not used to interpret this result as normal/abnormal . HYAL CAST (test code = See_Comment H [Aut omated 4532332106) message] The sy stem which generated this result transmitted reference range : <=2 LPF. The reference range was not used to interpret this result as normal/abnormal . ASCORBIC ACID (test Negative code = 7702357662) Lab Interpretation Abnormal (test code = 72120-6) [facility] CenterCT [facility] P[facility] W GRAGNCXR8608-56-65 00:25:08Persistent marked and severe dilatation of the [...] is essentially stable compared to prior examination. [facility] Metabolic Panel (NA, K, CL, CO2, GLUCOSE, BUN, CREATININE, CA)2020-01-28 23:38:00 Test Item Value Reference Range Interpretation Comments NA (test code = 143 mmol/L 135-145 3536204216) K (test code = 4.2 mmol/L 3.5-5 2524222228) CL (test code = 111 mmol/L 98-108 H 8726928838) CO2 TOTAL (test code = 28 mmol/L 23-31 9652643416) AGAP (test code = 2-16 7203953431) BUN (test code = 15 mg/dL 7-23 0156971530) GLUCOSE (test code = 68 mg/dL 70-110 L 2597635200) CREATININE (test code = 1.32 mg/dL 0.6-1.25 H 7506237625) CALCIUM (test code = 9.0 mg/dL 8.6-10.6 9686626948) eGFR Calculation mL/min/1.73m2 (Non-) (test code = 9240244966) eGFR Calculation mL/min/1.73m2 () (test code = 2735259924) GILBERTO (test code = GILBERTO) Association of [...] tests). Lab Interpretation Abnormal (test code = 35587-6) [facility] Center[facility] (ALB, T.PRO, BILI T, BU/BC, ALT, AST, ALK PHOS)2020-01-28 23:38:00 Test Item Value Reference Range Interpretation Comments TOTAL BILI (test code = 5028707486) 0.6 mg/dL 0.1-1.1 BILI UNCON (test code = 8304150486) 0.6 mg/dL 0.1-1.1 BILI CONJ (test code = 3306155121) 0.0 mg/dL 0-0.3 T PROTEIN (test code = 1832119854) 5.7 g/dL 6.3-8.2 L ALBUMIN (test code = 7581485223) 3.8 g/dL 3.5-5 ALK PHOS (test code = 6458604197) 37 U/L 34-122 ALTv (test code = 1742-6) 23 U/L 5-50 AST(SGOT) (test code = 8984932930) 25 U/L 13-40 Lab Interpretation (test code = Abnormal 08917-4) [facility] CenterLipase Ddlbi1928-32-15 23:38:00 Test Item Value Reference Range Interpretation Comments LIPASE (test code = 3022182775) 62 U/L 0-220 Lab Interpretation (test code = Normal 84835-5) [facility] CenterCBC WITH TTTTHXLUJZJV4409-77-83 23:29:00 Test Item Value Reference Range Interpretation Comments WBC (test code = See_Comment [Automated 1790-2) message] The sy stem which generated this [...] RDW-SD (test code = 47.5 fL 38.5-51.6 45412-7) RDW-CV (test code = 14.3 % 12.1-15.4 788-0) PLT (test code = See_Comment [Automated 777-3) message] The sy stem which generated this result transmitted reference range : 150 - 328 10*3/ ?L. The reference r meredith was not used to interpret this result as normal/abnormal . MPV (test code = 10.6 fL 9.8-13 29947-9) NRBC/100 WBC (test See_Comment [Automat ed code = 9068661173) message] The system which generated this result transmitted reference range : 0.0 - 10.0 /100 WBCs. The refer ence range was not u sed to interpret th is result as normal/abnormal . NRBC x10^3 (test code <0.01 See_Comment [Auto mated = 0899236147) message] The s ystem which generated this result transmitted reference range : 10*3/?L. The reference range was not used to interpret this result as normal/abnormal . GRAN MAT (NEUT) % 50.1 % (test code = 770-8) IMM GRAN % (test code 0.20 % = 5918067465) LYMPH % (test code = 34.7 % 736-9) MONO % (test code = 12.5 % 5905-5) EOS % (test code = 1.8 % 713-8) BASO % (test code = 0.7 % 706-2) GRAN MAT x10^3(ANC) 2.28 10*3/uL 1.99-6.95 (test code = 6627271025) IMM GRAN x10^3 (test <0.03 0-0.06 code = 6661557943) LYMPH x10^3 (test code 1.58 10*3/uL 1.09-3.23 = 731-0) MONO x10^3 (test code 0.57 10*3/uL 0.36-1.02 = 742-7) EOS x10^3 (test code = 0.08 10*3/uL 0.06-0.53 711-2) BASO x10^3 (test code 0.03 10*3/uL 0.01-0.09 = 704-7) Lab Interpretation Abnormal (test code = 44024-4) [facility] METABOLIC PANEL (NA, K, CL, CO2, GLUCOSE, BUN, CREATININE, CA)2020-01-26 18:34:00 Test Item Value Reference Range Interpretation Comments NA (test code = 138 mmol/L 135-145 2277522921) K (test code = 3.7 mmol/L 3.5-5 7042153556) CL (test code = 108 mmol/L 98-108 6037329275) CO2 TOTAL (test code = 25 mmol/L 23-31 6605004914) AGAP (test code = 2-16 2886892797) BUN (test code = 9 mg/dL 7-23 6986837398) GLUCOSE (test code = 107 mg/dL 70-110 2512507840) CREATININE (test code 0.96 mg/dL 0.6-1.25 = 6256542063) CALCIUM (test code = 8.7 mg/dL 8.6-10.6 2297011473) eGFR Calculation mL/min/1.73m2 (Non-) (test code = 2633789032) eGFR Calculation mL/min/1.73m2 () (test code = 1746992956) GILBERTO (test code = GILBERTO) Association of [...] or urine or abnormalities in imaging tests). [facility] Kydcu1791-30-48 08:33:00 Test Item Value Reference Range Interpretation Comments MAGNESIUM (test code = 1.9 mg/dL 1.7-2.4 [facility] t hemolysis 9980526250) Lab Interpretation (test Normal code = 81293-4) [facility] [id number] 06:18:53 Redemonstration of marked gaseous distention of the transverse anddescending colon. RL: 460 AF: 81668 Ordering physician: HELENE GRIFFIN INDICATION: Abdominal pain COMPARISON: CT the abdomen and pelvis dated 01/24/2020 FINDINGS:Supine AP views of the abdomen and pelvis. There isredemonstration of marked distention of the transverse and descendingcolon. Kymb, Radiant Results Inft User - 01/26/2020 1:20 AM CDTOrdering physician: HELENE GRIFFININDICATION: Abdominal painCOMPARISON: CT the abdomen and pelvis dated 01/24/2020FINDINGS: Supine AP views of the abdomen and pelvis. There isredemonstration of marked distention of the transverse and descendingcolon.IMPRESSIONRedemonstration of marked gaseous distention of the transverse anddescending colon.RL: 460AF: 46275Wunhtkgzylcsmj signed by Angeli Carrillo MD, PhD at 01/26/2020 1:18 AMSt[facility] Phosphorus Xnixa2803-06-97 10:11:00 Test Item Value Reference Range Interpretation Comments PHOSPHORUS (test code = 6662822893) 3.9 mg/dL 2.5-5 Lab Interpretation (test code = Normal 99907-4) [facility]COVID[facility] (ID NOW RAPID TESTING)2020-01-25 05:12:00 Test Item Value Reference Range Interpretation Comments SARS-CoV-2 Rapid ID NOW Not Detected Not Detected (test code = 31847-6) GILBERTO (test code = GILBERTO) ID NOW COVID-19 Assay is an isothermal nucleic acid amplification test intended for the qualitative detection of nucleic acid from SARS-CoV-2 viral RNA in nasopharyngeal (PARENT COACH) specimens. It is used under Emergency Use [...] indicated. Lab Interpretation Normal (test code = 36507-9) [facility] CenterL[facility] Whole Tdekq5376-98-19 04:34:00 Test Item Value Reference Range Interpretation Comments LACTIC ACID (test code = 0.89 mmol/L 0.5-2.2 3715919665) [facility] CenterCT ABDOMEN PELVIS W GSZSALTD6783-03-11 02:47:02Impression: Marked distention and dilatation of the [...] bowel as well. Rectal tubedecompression may be considered.[facility] AsszgbMldpghrdsv9125-00-87 01:51:00 Test Item Value Reference Range Interpretation Comments APPEARANCE (test code = Hazy Clear A 6226761036) COLOR (test code = Yellow Yellow 0193614393) PH (test code = 4.8-8.0 9849260813) SP GRAVITY (test code = 1.003-1.030 7511377803) GLU U QUAL (test code = Normal Normal 4101033727) BLOOD (test code = Negative Negative 6143142772) KETONES (test code = Negative Negative 8526740890) PROTEIN (test code = Negative Negative 2887-8) UROBILIN (test code = Normal Normal 3134723759) BILIRUBIN (test code = Negative Negative 8725984997) NITRITE (test code = Negative Negative 9006037116) LEUK ROGER (test code = Negative Negative 3822411274) RBC/HPF (test code = See_Comment H [Autom ated message] 2455340710) The system [employer] generated this result transmitted ref erence range: 0 - 3 HP F. The reference range was not used to int erpret this result as normal/abnormal . WBC/HPF (test code = See_Comment [Autom ated message] 2359588624) The system [employer] generated this result transmitted ref erence range: 0 - 5 HP F. The reference range was not used to int erpret this result as normal/abnormal . BACTERIA (test code = Negative Negative 0321153726) SQ EPITH (test code = <1 See_Comment [Auto mated message] 5294148072) The system [employer] generated this result transmitted ref erence range: <=2 HPF. The reference range was not used to int erpret this result as normal/abnormal . CA OXALATE (test code = See_Comment H [Au tomated message] 6178738182) The system [employer] generated this result transmitted ref erence range: <=1 HPF. The reference range was not used to int erpret this result as normal/abnormal . Lab Interpretation (test Abnormal code = 15365-7) [facility] Met[facility] Panel (NA, K, CL, CO2, GLUCOSE, BUN, CREATININE, CA)2020-01-25 01:01:00 Test Item Value Reference Range Interpretation Comments NA (test code = 139 mmol/L 135-145 4486872901) K (test code = 4.6 mmol/L 3.5-5 Slight hemoly sis 4790356727) CL (test code = 107 mmol/L 98-108 4410977016) CO2 TOTAL (test 26 mmol/L 23-31 code = 7694252321) AGAP (test code = 2-16 8448008395) BUN (test code = 23 mg/dL 7-23 Slight hemo lysis 6977773240) GLUCOSE (test code 94 mg/dL 70-110 = 9996608239) CREATININE (test 1.13 mg/dL 0.6-1.25 code = 3940262154) CALCIUM (test code 8.9 mg/dL 8.6-10.6 = 9350671425) eGFR Calculation mL/min/1.73m2 (Non-) (test code = 6063661006) eGFR Calculation mL/min/1.73m2 () (test code = 2258764911) GILBERTO (test code = Association of GILBERTO) [...] or urine or abnormalities in imaging tests). [facility] (ALB, T.PRO, BILI T, BU/BC, ALT, AST, ALK PHOS)2020-01-25 01:01:00 Test Item Value Reference Range Interpretation Comments TOTAL BILI (test code = 6988385108) 0.7 mg/dL 0.1-1.1 BILI UNCON (test code = 1325746158) 0.6 mg/dL 0.1-1.1 BILI CONJ (test code = 9310541414) 0.0 mg/dL 0-0.3 T PROTEIN (test code = 3267466853) 6.2 g/dL 6.3-8.2 L ALBUMIN (test code = 0309185561) 4.1 g/dL 3.5-5 ALK PHOS (test code = 2180483435) 46 U/L 34-122 ALTv (test code = 1742-6) 27 U/L 5-50 AST(SGOT) (test code = 6056501025) 31 U/L 13-40 Lab Interpretation (test code = Abnormal 53916-0) [facility] CenterLipase Veiml3847-11-75 01:01:00 Test Item Value Reference Range Interpretation Comments LIPASE (test code = 4535182110) 246 U/L 0-220 H Lab Interpretation (test code = Abnormal 91529-6) [facility] CenterCB WITH LXAFFVHUJJNL2554-73-03 00:49:00 Test Item Value Reference Range Interpretation Comments WBC (test code = See_Comment [Automated 1990-2) message] The sy stem which generated this result transmitted reference range : 4.20 - 10.70 10*3/?L. The reference range was not used to interpret this result as normal/abnormal . RBC (test code = See_Comment L [Automated 339-8) message] The sy stem which generated this [...] RDW-SD (test code = 46.8 fL 38.5-51.6 31677-1) RDW-CV (test code = 14.2 % 12.1-15.4 788-0) PLT (test code = See_Comment [Automated 777-3) message] The sy stem which generated this result transmitted reference range : 150 - 328 10*3/ ?L. The reference r meredith was not used to interpret this result as normal/abnormal . MPV (test code = 10.7 fL 9.8-13 65778-7) NRBC/100 WBC (test See_Comment [Automat ed code = 4287446960) message] The system which generated this result transmitted reference range : 0.0 - 10.0 /100 WBCs. The refer ence range was not u sed to interpret th is result as normal/abnormal . NRBC x10^3 (test code <0.01 See_Comment [Auto mated = 9763993327) message] The s ystem which generated this result transmitted reference range : 10*3/?L. The reference range was not used to interpret this result as normal/abnormal . GRAN MAT (NEUT) % 56.9 % (test code = 770-8) IMM GRAN % (test code 0.20 % = 3007792672) LYMPH % (test code = 31.2 % 736-9) MONO % (test code = 9.7 % 5905-5) EOS % (test code = 1.6 % 713-8) BASO % (test code = 0.4 % 706-2) GRAN MAT x10^3(ANC) 2.86 10*3/uL 1.99-6.95 (test code = 3498775718) IMM GRAN x10^3 (test <0.03 0-0.06 code = 4012590749) LYMPH x10^3 (test code 1.57 10*3/uL 1.09-3.23 = 731-0) MONO x10^3 (test code 0.49 10*3/uL 0.36-1.02 = 742-7) EOS x10^3 (test code = 0.08 10*3/uL 0.06-0.53 711-2) BASO x10^3 (test code <0.03 0.01-0.09 = 704-7) Lab Interpretation Abnormal (test code = 33868-5) [facility] X[facility] ABD[facility]EN 1 [id number] 07:32:00 Name: DORA JOSEPH [facility] : 1970 Age/S: 49 / M [address] Unit #: [id number] Loc: [place] [address] Phys: Jay Mayo MD Acct: [id number] Dis Date: Status: ADMIN PHONE #: [phone] Exam Date: 01/10/2020 0658 FAX #: Reason: follow up colonic ileus EXAMS: CPT: [id number] XR ABDOMEN 1 V 90358 Fluoro Time: DAP (Gy m2): Air Kerma [...] PAGE 1 Signed Report Name: DORA JOSEPH [place] : 1970 Age/S: 49 / M [address] Unit #: [id number] Loc: [place] [address] Phys: Jay Mayo MD Acct: [id number] Dis Date: Status: ADM IN PHONE #: [phone] Exam Date: 01/10/2020 0658 FAX #: Reason: follow up colonic ileus EXAMS: CPT: [id number] XR ABDOMEN 1 V 83056 Fluoro Time: DAP (Gym2): Air Kerma (mGy): <Continued> Technologist: Bakari De Leon RT(R)(CT) Trnscb Date/Time: 01/10/2020 (0787) GarettCB5 Orig Print D/T: S: 01/10/2020 (0399) PAGE 2 Signed Report COMPREHENSIVE METABOLIC [id number] 05:56:00 Test Item Value Reference Range Interpretation [...] TOTAL (test code = ALKP) CBC W/AUTO ZAFT9946-54-42 05:42:00 Test Item Value Reference Range Interpretation [...] = NO DIFF/SCN CRITERIA MDIFF) BASIC METABOLIC [id number] 06:59:00 Test Item Value Reference Range Interpretation [...] code = CA) 8.5 MG/DL 8.5-10.1 N DXMDPOSAJ1508-36-73 06:59:00 Test Item Value Reference Range Interpretation Comments MAGNESIUM (test code = MAG) 2.2 MG/DL 1.8-2.4 PROTHROMBIN [id number] 06:39:00 Test Item Value Reference Range Interpretation Comments PT PATIENT (test code = PTP) 13.1 SECONDS 9.3-12.9 H INTERNATIONAL NORMAL RATIO 1.16 INR Unit 0.8-1.2 N (test code = INR) CBC W/AUTO [id number] 06:22:00 Test Item Value Reference Range Interpretation [...] DIFF/SCN CRITERIA MDIFF) - XR ABDOMEN 1 X1545-34-27 05:39:00 Name: DORA JOSEPH [facility] : 1970 Age/S: 49 / M [address] [facility] Unit #: [id number] Loc: [place] [address] 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 Acct: [id number] Dis Date: Status: ADM IN PHONE #: [phone] Exam Date: 01/09/2020 05 FAX #: Reason: colonic ileus/obstruction EXAMS: CPT: [id number] XR ABDOMEN 1 V 72405 Fluoro Time: DAP (Gy m2): Air Kerma (mGy): Exam: KUB. Location: H 12 History: colonic ileus/obstruction COMPARISON: 01/08/2020 Findings: A supine view of the abdomen demonstrates no change has occurred in the dilatation of the distal colon. No organomegaly, abnormal masses or calcifications are seen. No pneumatosis or free air is present. Impression: Stable abdomen. at 0539 Reported and signed by:Teo Do M.D. 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 YESCoronavirus 2018 nCo Clugmfi3267-54-36 22:38:00 Test Item Value Reference Range Interpretation Comments Coronavirus 2019 nCoV Bedside (test Negative Negative code = WGXUM52ZQEJL) Emergent procedure? YESBASIC METABOLIC IIYTG9801-60-33 18:42:00 Test Item Value Reference Range Interpretation [...] CA) 8.5 MG/DL 8.5-10.1 N CBC W/AUTO [id number] 10:50:00 Test Item Value Reference Range Interpretation [...] = NO DIFF/SCN CRITERIA MDIFF) COMPREHENSIVE METABOLIC [id number] 10:46:00 Test Item Value Reference Range Interpretation [...] 50-136 N TOTAL (test code = ALKP) [id number] 10:46:00 Test Item Value Reference Range Interpretation Comments MAGNESIUM (test code = MAG) 2.6 MG/DL 1.8-2.4 H COMPREHENSIVE METABOLIC [id number] 10:34:00 Test Item Value Reference Range Interpretation [...] TOTAL (test Unit/L 50-136 code = ALKP) IAJSTBQXK8131-10-28 10:34:00 Test Item Value Reference Range Interpretation Comments MAGNESIUM (test code = MAG) MG/DL 1.8-2.4 - XR ABDOMEN 1 [id number] 08:28:00 Name: DORA JOSEPH [facility] : 1970 Age/S: 49 / M [address] Unit #: [id number] Loc: [place] [address] Phys: Yas Edwards MD Acct: [id number] Dis Date: Status: ADM IN PHONE#: [phone] Exam Date: 01/08/2020 05 FAX #: Reason: ileus EXAMS: CPT: [id number] XR ABDOMEN 1 V 53862 Fluoro Time: DAP (Gy m2): Air Kerma [...] Hospital : 1970 Age/S: 49 / M [address] Unit #: [id number] Loc: [place] [address] Phys: Yas Edwards MD Acct: [id number] Dis Date: Status: ADM IN PHONE #: [phone] Exam Date: 01/08/2020509 FAX #: Reason: ileus EXAMS: CPT: [id number] XR ABDOMEN 1 V 88220 Fluoro Time: DAP (Gy m2): Air Kerma (mGy): <Continued> Technologist: Carrie Barnett, RT(R)(CT); ... Trnscb Date/Time: 01/08/2020 (827) t.FLEXR.JTM Orig Print D/T: S: 01/08/2020 (830) PAGE 2 Signed ReportCOMPREHENSIVE METABOLIC [id number] 07:08:00 Test Item Value Reference Range Interpretation [...] 50-136 L TOTAL (test code = ALKP) [id number] 07:08:00 Test Item Value Reference Range Interpretation Comments MAGNESIUM (test code = MAG) 1.3 MG/DL 1.8-2.4 L COMPREHENSIVE METABOLIC [id number] 05:16:00 Test Item Value Reference Range Interpretation [...] 50-136 L TOTAL (test code = ALKP) [id number] 05:16:00 Test Item Value Reference Range Interpretation Comments MAGNESIUM (test code = MAG) 1.3 MG/DL 1.8-2.4 L CBC W/AUTO [id number] 05:02:00 Test Item Value Reference Range Interpretation [...] (test code = NO DIFF/SCN CRITERIA MDIFF) [id number] 16:51:00 Test Item Value Reference Range Interpretation Comments MAGNESIUM (test code = MAG) 2.3 MG/DL 1.8-2.4 N FE W/TOTAL IRON BINDING CAP.2020-01-07 16:51:00 Test Item Value Reference Range Interpretation Comments SERUM IRON (test code = IRON) 38 mcG/DL 65-175 L TOTAL IRON BINDING CAPACITY (test 322 mcG/DL 250-450 N code = TIBC) IRON SATURATION (test code = 12 % calc 12-57 N FESAT) [id number] 16:51:00 Test Item Value Reference Range Interpretation Comments FERRITIN (test code = DAVID) 17.6 NG/ML 5.0-323.0 N CALCIUM [id number] 16:50:00 Test Item Value Reference Range Interpretation Comments CALCIUM IONIZED (test code = NAVEED) 1.12 mmol/L 1.12-1.32 N - XR ABDOMEN 1 [id number] 10:29:00 Name: DORA JOSEPH [place] : 1970 Age/S: 49 / M [address] Unit #: [id number] Loc: [place] [address] Phys: Verona Frost PA-C Acct: [id number] Dis Date: Status: ADM IN PHONE #: [phone] Exam Date: 01/07/2020711 FAX #: Reason: reassess SBO EXAMS: CPT: [id number] XR ABDOMEN 1 V 75601 Fluoro Time: DAP (Gy m2): Air Kerma [...] PAGE 1 Signed Report Name: DORA JOSEPH [place] : 1970 Age/S: 49 / M [address] Unit #: [id number] Loc: [place] [address] Phys: MargotVeronalg SOLIS Acct: [id number] Dis Date: Status: ADM IN PHONE #: [phone] Exam Date: 01/07/2020 07 FAX #: Reason: reassess SBO EXAMS: CPT: [id number] XR ABDOMEN 1 V 20117 Fluoro Time: DAP (Gy m2): Air Kerma (mGy): <Continued> Technologist: Bakari De Leon RT(R)(CT) Trnscb Date/Time: 01/07/2020(9326) t.SDR.AGV Orig Print D/T: S: 01/07/2020 (3751) PAGE 2 Signed ReportBASIC METABOLIC PANEL 2020-01-07 [...] CA) 5.4 MG/DL 8.5-10.1 LL CBC W/AUTO [id number] 06:49:00 Test Item Value Reference Range Interpretation [...] = NO DIFF/SCN CRITERIA MDIFF) COMPREHENSIVE METABOLIC [id number] 06:10:00 Test Item Value Reference Range Interpretation [...] TOTAL (test code = ALKP) CBC W/AUTO [id number] 05:52:00 Test Item Value Reference Range Interpretation [...] DIFF/SCN CRITERIA MDIFF) - XR ABDOMEN 1 [id number] 01:30:00 Name: DORA JOSEPH [facility] : 1970 Age/S: 49 / M [address] Unit #: [id number] Loc: [place] [address] Phys: Ted Coleman NP Acct: [id number] Dis Date: Status: ADM IN PHONE #: [phone] Exam Date: 01/06/2020 0100 FAX #: Reason: NG Tube Placement Verification EXAMS: CPT: [id number] XR ABDOMEN 1 V 12132 Fluoro Time: DAP (Gy m2): Air Kerma [...] placement. Electronically Signed by Renée Do on 01/06/2020 at 0130 Reported and signed by: Teo Do M.D. CC: Mark Perea MD; Ted Coleman PARENT COACH PAGE 1 Signed Report Name: DORA JOSEPH [facility] : 1970 Age/S: 49 / M [address] Unit #: [id number] Loc: [place] [address] Phys: Ted Coleman NP Acct: [id number] Dis Date: Status: ADM IN PHONE #: [phone] Exam Date: 01/06/2020 010 FAX #: Reason: NG Tube Placement Verification EXAMS: CPT: [id number] XR ABDOMEN 1 V 62626 Fluoro Time: DAP (Gy m2): Air Kerma (mGy): <Continued> Technologist: RT Tatum(R) Trnscb Date/Time: 01/06/2020 (129) GarettFC Orig Print D/T: S: 01/06/2020 (013) PAGE 2 Signed Report- CT ABD PELVIS W/O [id number] 19:42:00 [place]: St: REG -- Name: DORA JOSEPH [facility] : 1970 Age/S: 49/M [address] [facility] Unit:[id number] Loc: [place], [place]: [place] [address] Acct: [id number] Dis Date: Status: REG ER PHONE #: [phone] Exam Date: 12/13/20191924 FAX #: [phone] Reason: pain EXAMS: CPT CODE: [id number] CT ABD PELVIS W/O CONT 62044 Examination: CT scan abdomen and pelvis without [...] the prior examination and is likely chronic innature. No definite obstructing lesion is identified. Images through the lung bases are unremarkable. IMPRESSION: 1. Marked distention of the transverse colon essentially unchanged in appearance when compared to the prior study dated 02/28/2013. No definite obstructive lesion is identified given the stability of this finding is likely as a chronic finding. 2. Otherwise unremarkable unenhanced CT scan of abdomen and pelvis. at 194 Reported and signed by: SHANEL EDWARDS CC: Technologist: SUJATA ALMANZAR Trnscrd Dt/Tm: 12/13/2019 (1941) Candido.VR5 Orig Print D/T: S: 12/13/2019 (5 PAGE 1 Signed [...] code = CA) 8.6 mg/dl 8.0-10.5 N [id number] 18:49:00 Test Item Value Reference Range Interpretation Comments LIPASE (test code = LIP) 97 Units/L 65.0-230.0 N CBC W/AUTO [id number] 18:38:00 Test Item Value Reference Range Interpretation [...] K/mm3 0.0-0.2 N - XR CHEST 1 [id number] 18:36:00 [place]: St: PRE -- Name: JOSEPHDORA [facility] : 1970 Age/S: 49/M [address] [facility] [id number] Loc: [place]: [place] [address] Acct: [id number] Dis Date:Status: PRE ER PHONE #: [phone] Exam Date: 12/13/20191821 FAX #: [phone] Reason: SOB EXAMS: CPT CODE: [id number] XR CHEST 1 V 57556 Examination: One view chest x-ray Location code: [...] : By: GarettVR5 PAGE 1 Signed Report [place]: [facility]: PRE ----- Name: DORA JOSEPH [facility] : 1970 Age/S: 49/M [address] [employer] Unit #: [id number] Loc: [place], [place] Phys: [place] [address] Acct: [id number] Dis Date: Status: PRE ER PHONE #: [phone] Exam Date: 12/13/2019 1822 FAX #: [phone] Reason: SOB EXAMS: CPT CODE: [id number] XR CHEST 1 V 26121 (Continued) Orig Print D/T: S: 12/13/2019 (1839) PAGE 2 Signed ReportCBC W/PLT COUNT & AUTO [id number] 08:02:00 Test Item Value Reference Range Interpretation [...] Received comment: User comments: Slide comments:BASIC METABOLIC [id number] 07:34:00 Test Item Value Reference Range Interpretation [...] S NOT APPLICABLE FOR DIALYSIS PATIEN TS. [id number] 07:26:00 Test Item Value Reference Range Interpretation Comments PHOSPHORUS (BEAKER) (test code = 3.1 mg/dL 2.3-4.7 604) [id number] 07:26:00 Test Item Value Reference Range Interpretation Comments MAGNESIUM (BEAKER) (test code = 1.6 mg/dL 1.6-2.6 627) RAD, ABDOMEN/KUB, 1 VIEW [id number] 07:04:00Reason for exam:->ileusFINAL REPORT Abdomen , one [...] MDReport Verified Date/Time: 04/03/2019 07:04:46 Reading Location: [address] Ortho Consult Reading Room BASIC METABOLIC [id number] 06:47:00 Test Item Value Reference Range Interpretation [...] code = 413) URINALYSIS WITH MICROSCOPIC IF [id number] 22:01:00 Test Item Value Reference Range Interpretation [...] 463) SOURCE(BEAKER) (test code = 2795) URINALYSIS [id number] 22:01:00 Test Item Value Reference Range Interpretation Comments RBC UA (BEAKER) (test code = 519) 18 /HPF WBC UA (BEAKER) (test code = 520) 1 /HPF CALCIUM OXALATE CRYSTALS (BEAKER) Occasional (test code = 518) [id number] 05:49:00 Test Item Value Reference Range Interpretation Comments PHOSPHORUS (BEAKER) (test code = 2.5 mg/dL 2.3-4.7 604) [id number] 05:49:00 Test Item Value Reference Range Interpretation Comments MAGNESIUM (BEAKER) (test code = 1.7 mg/dL 1.6-2.6 627) BASIC METABOLIC [id number] 05:49:00 Test Item Value Reference Range Interpretation [...] (BEAKER) (test code = 413) BASIC METABOLIC [id number] 06:19:00 Test Item Value Reference Range Interpretation [...] S NOT APPLICABLE FOR DIALYSIS PATIEN TS. [id number] 06:10:00 Test Item Value Reference Range Interpretation Comments MAGNESIUM (BEAKER) 1.8 mg/dL 1.6-2.6 Specimen slightly (test code = 627) hemolyzed [id number] 06:10:00 Test Item Value Reference Range Interpretation [...] (BEAKER) (test code = 413) BASIC METABOLIC [id number] 04:57:00 Test Item Value Reference Range Interpretation [...] S NOT APPLICABLE FOR DIALYSIS PATIEN TS. [id number] 04:55:00 Test Item Value Reference Range Interpretation Comments PHOSPHORUS (BEAKER) (test code = 2.6 mg/dL 2.3-4.7 604) [id number] 04:55:00 Test Item Value Reference Range Interpretation Comments MAGNESIUM (BEAKER) (test code = 1.8 mg/dL 1.6-2.6 627) CT, [id number] 14:16:00FINAL REPORT TECHNIQUE: CT of the abdomen [...] Pope MDReport Verified Date/Time: 03/29/2019 14:16:01Reading Location: [facility] C013Y CT Body Reading Room , ABDOMEN/KUB, 1 VIEW [id number] 10:23:00Reason for exam:->evaluate ileusFINAL REPORT Technique: Supine radiographs of the abdomen dated 03/29/2019. HISTORY: Evaluate ileus. COMPARISON: Abdominal radiographs dated 03/28/2019 IMPRESSION:There has been no change in the distention of the bowel when compared to prior study. Previously seen pneumoperitoneum has resolved. No abnormal soft tissue mass. Surgical skin carmenza are seen along the midline. No fracture. Signed: Nruia Urbinaeport Verified Date/Time: 03/29/2019 10:23:29 Reading Location: [facility] Reading Room CBC (HEMOGRAM ONLY)2019-03-29 [...] WBC 0-0 (BEAKER) (test code = 413) [id number] 06:20:00 Test Item Value Reference Range Interpretation Comments PHOSPHORUS (BEAKER) (test code = 2.6 mg/dL 2.3-4.7 604) [id number] 06:20:00 Test Item Value Reference Range Interpretation Comments MAGNESIUM (BEAKER) (test code = 2.0 mg/dL 1.6-2.6 627) BASIC METABOLIC [id number] 06:20:00 Test Item Value Reference Range Interpretation [...] TS. RAD, ABDOMEN SERIES W/ UPRIGHT PA [id number] 22:18:00Reason for exam:- >eval ileusFINAL REPORT CLINICAL [...] Date/Time: 03/28/2019 22:18:50 RAD, ABDOMEN/KUB, 1 VIEW [id number] 11:23:00Reason for exam:->abdominal distensionShould this be performed [...] Ontiveros Verified Date/Time: 03/28/2019 11:23:34 Reading Location: [facility] Radiology Reading Room TISSUE [id number] 09:00:00Surgical Pathology Report Case: [id number] Authorizing Provider: Graciela Garrison MD Collected: 03/25/2019 1133 Ordering Location: [facility] Received: 03/25/2019 1527 SERVICES Pathologist: Jordan [...] FOR MALIGNANCY Signing Pathologist Direct Phone Line: [phone] signed by Jordan Celaya MD on 03/28/2019 at 9:00 [id number] and postop diagnosis: ileostomy statusA. End ileostomy;B. [...] nodes are not identified in the mesentery. 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 Section code: A, medical field representative section of each end of first mentionedsegment of small bowel; A2, medical field representative of first mentioned segment of small bowel mucosa; A3, area of hemorrhagic mesentery of second mentioned segment of mucosa; A4, medical field representative of hemorrhagic mucosa at open end of second portion of small bowel; A5, medical field representative of stapled margin from second mentioned [...] 0.2 cm. No gross lesions are identified. 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 Section code: B1, proximal margin en face and tip; B2, medical field representative cross section. CG/pl Performed.[id number] 06:23:00 Test Item Value Reference Range Interpretation Comments PHOSPHORUS (BEAKER) (test code = 2.7 mg/dL 2.3-4.7 604) [id number] 06:23:00 Test Item Value Reference Range Interpretation Comments MAGNESIUM (BEAKER) (test code = 1.9 mg/dL 1.6-2.6 627) BASIC METABOLIC [id number] 06:23:00 Test Item Value Reference Range Interpretation [...] S NOT APPLICABLE FOR DIALYSIS PATIEN TS. [id number] 08:20:00 Test Item Value Reference Range Interpretation Comments PHOSPHORUS (BEAKER) (test code = 2.6 mg/dL 2.3-4.7 604) [id number] 08:20:00 Test Item Value Reference Range Interpretation Comments MAGNESIUM (BEAKER) (test code = 1.8 mg/dL 1.6-2.6 627) BASIC METABOLIC [id number] 08:20:00 Test Item Value Reference Range Interpretation [...] S NOT APPLICABLE FOR DIALYSIS PATIEN TS. [id number] 06:06:00 Test Item Value Reference Range Interpretation Comments PHOSPHORUS (BEAKER) (test code = 4.1 mg/dL 2.3-4.7 604) [id number] 06:06:00 Test Item Value Reference Range Interpretation Comments MAGNESIUM (BEAKER) (test code = 1.8 mg/dL 1.6-2.6 627) BASIC METABOLIC [id number] 06:06:00 Test Item Value Reference Range Interpretation [...] S NOT APPLICABLE FOR DIALYSIS PATIEN TS. [id number] 06:03:00 Test Item Value Reference Range Interpretation Comments PHOSPHORUS (BEAKER) (test code = 4.2 mg/dL 2.3-4.7 604) [id number] 06:03:00 Test Item Value Reference Range Interpretation Comments MAGNESIUM (BEAKER) (test code = 2.0 mg/dL 1.6-2.6 627) BASIC METABOLIC [id number] 06:03:00 Test Item Value Reference Range Interpretation [...] WBC 0-0 (BEAKER) (test code = 413) [id number] 05:52:00 Test Item Value Reference Range Interpretation Comments PHOSPHORUS (BEAKER) (test code = 4.2 mg/dL 2.3-4.7 604) [id number] 05:52:00 Test Item Value Reference Range Interpretation Comments MAGNESIUM (BEAKER) (test code = 1.9 mg/dL 1.6-2.6 627) BASIC METABOLIC [id number] 05:52:00 Test Item Value Reference Range Interpretation [...] S NOT APPLICABLE FOR DIALYSIS PATIEN TS. [id number] 06:51:00 Test Item Value Reference Range Interpretation Comments PHOSPHORUS (BEAKER) (test code = 4.3 mg/dL 2.3-4.7 604) [id number] 06:51:00 Test Item Value Reference Range Interpretation Comments MAGNESIUM (BEAKER) (test code = 2.0 mg/dL 1.6-2.6 627) BASIC METABOLIC [id number] 06:51:00 Test Item Value Reference Range Interpretation [...] 0-0 (BEAKER) (test code = 413) TISSUE [id number] 11:50:00Surgical Pathology Report Case: [id number] Authorizing Provider: Mela Larson MD Collected: 03/18/2019 1827 Ordering Location: [facility] Received: 03/21/2019 0823 SERVICES Pathologist: Jordan Celaya MD Specimen: Small Bowel, NOS A. SMALL BOWEL, ILEOSTOMY PROLAPSE, TAKEDOWN: - ANASTOMOSIS SITE WITH ACTIVE CHRONIC INFLAMMATION AND FOCAL ISCHEMIC CHANGES - MUCOSAL RESECTION MARGINS, NEGATIVE FOR MALIGNANCY - ONE BENIGN LYMPH NODE (0/1) - NEGATIVE FOR DYSPLASIA OR MALIGNANCY Signing Pathologist Direct Phone Line: [phone] signed by Jordan Celaya MD on 03/22/2019 at 11:50 [id number] of ileostomyReceived in a container labeled "small [...] 0.5 to 1.2 cm in greatest dimension. Commercial [employer] Underwriter sections are submitted as follows: A1-A2, mucosal resection margin, en face; A3-A6, medical field representative sections of the possible ostomy stump; A7-A11, serial medical field representative sections from mucosal resection margin to the possible ostomy stump; A12, two lymph nodes. /plPerformed.[id number] 06:58:00 Test Item Value Reference Range Interpretation Comments PHOSPHORUS (BEAKER) (test code = 3.8 mg/dL 2.3-4.7 604) [id number] 06:58:00 Test Item Value Reference Range Interpretation Comments MAGNESIUM (BEAKER) (test code = 2.0 mg/dL 1.6-2.6 627) BASIC METABOLIC [id number] 06:58:00 Test Item Value Reference Range Interpretation [...] PATIEN TS. CBC W/PLT COUNT & AUTO [id number] 05:42:00 Test Item Value Reference Range Interpretation [...] PERCENT (BEAKER) (test code = 2801) [place], [id number] 17:42:00Reason for exam:->evaluate for colon stricture as [...] MDReport Verified Date/Time: 03/21/2019 17:42:21 Reading Location: [address] Consult Reading Room [id number] 03:58:00 Test Item Value Reference Range Interpretation Comments PHOSPHORUS (BEAKER) (test code = 3.0 mg/dL 2.3-4.7 604) [id number] 03:58:00 Test Item Value Reference Range Interpretation Comments MAGNESIUM (BEAKER) (test code = 2.0 mg/dL 1.6-2.6 627) BASIC METABOLIC [id number] 03:58:00 Test Item Value Reference Range Interpretation [...] PATIEN TS. CBC W/PLT COUNT & AUTO [id number] 03:20:00 Test Item Value Reference Range Interpretation [...] (BEAKER) (test code = 2801) BASIC METABOLIC [id number] 06:26:00 Test Item Value Reference Range Interpretation [...] GFR I S NOT APPLICABLE FOR DIALYSIS PATIFLORENCE TS. [id number] 06:05:00 Test Item Value Reference Range Interpretation Comments PHOSPHORUS (BEAKER) (test code = 2.2 mg/dL 2.3-4.7 L 604) [id number] 06:05:00 Test Item Value Reference Range Interpretation Comments MAGNESIUM (BEAKER) (test code = 2.0 mg/dL 1.6-2.6 627) CBC W/PLT COUNT & AUTO [id number] 05:25:00 Test Item Value Reference Range Interpretation [...] 0-1 PERCENT (BEAKER) (test code = 2801) [id number] 04:31:00 Test Item Value Reference Range Interpretation Comments PHOSPHORUS (BEAKER) (test code = 3.7 mg/dL 2.3-4.7 604) [id number] 04:31:00 Test Item Value Reference Range Interpretation Comments MAGNESIUM (BEAKER) (test code = 1.9 mg/dL 1.6-2.6 627) BASIC METABOLIC [id number] 04:31:00 Test Item Value Reference Range Interpretation [...] PATIEN TS. CBC W/PLT COUNT & AUTO [id number] 04:15:00 Test Item Value Reference Range Interpretation [...] 0-1 PERCENT (BEAKER) (test code = 2801) [id number] 06:41:00 Test Item Value Reference Range Interpretation Comments PHOSPHORUS (BEAKER) (test code = 3.1 mg/dL 2.3-4.7 604) [id number] 06:41:00 Test Item Value Reference Range Interpretation Comments MAGNESIUM (BEAKER) (test code = 1.9 mg/dL 1.6-2.6 627) BASIC METABOLIC [id number] 06:41:00 Test Item Value Reference Range Interpretation [...] PATIEN TS. CBC W/PLT COUNT & AUTO [id number] 06:36:00 Test Item Value Reference Range Interpretation [...] PERCENT (BEAKER) (test code = 2801) CT, [id number] 17:04:00No PO contrastFINAL REPORT ABDOMINAL AND PELVIS [...] secondary to nondistention or colitis. Signed: Amberly Munroeort Verified Date/Time: 03/17/2019 17:04:19 Reading Location: [facility] C013Y CT Body Reading Room XR ABDOMEN 2 [id number] 09:03:45XR ABDOMEN 2 VIEWSLOCATION: [id number]: Colstomy ProlapseCOMPARISON: Chest radiograph 04/15/2017, CT of [...] Nonspecific, nonobstructive bowel gas pattern.XR CHEST 1 [id number] 11:32:15EXAM: CHEST ONE VIEWINDICATION: Chest painCOMPARISON: None availableTECHNIQUE: AP view of the chest.FINDINGS: The cardiomediastinal silhouette is normal. The lungs are clearbilaterally. No pneumothoraxor pleural effusion is identified. Theosseous structures are unremarkable.IMPRESSION: No acute cardiopulmonary process.LOCATION: [id number] Type and [id number] 21:21:00 Test Item Value Reference Range Interpretation Comments ABO type (test code = ABO) O Rh Type (test code = RH) Positive Comprehensive Metabolic [id number] 20:36:00 Test Item Value Reference Range Interpretation [...] the National Kidney Foundation,http ://nkd ep.nih.gov Alcohol/Ethanol, [id number] 20:36:00 Test Item Value Reference Range Interpretation Comments Alcohol, Ethyl <0.01 g/dL 0.00-0.01 N Intoxicated 0 .080 g/dL (test code = ETOH) or more Prothrombin [id number] 20:00:00 Test Item Value Reference Range Interpretation Comments PT (test code = PT) 10.10 seconds 9.78-13.35 N INR (test code = INR) 0.88 Ratio 0.6-1.2 N Partial Thromboplastin [id number] 20:00:00 Test Item Value Reference Range Interpretation Comments aPTT (test code = PTT) 31.50 seconds 24.39-37.25 N CBC with [id number] 19:50:00 Test Item Value Reference Range Interpretation [...] code = ALYMPH) 2.2 K/cumm 0.5-4.6 N [place] Abs (test code = AMONO) 0.4 K/cumm 0.0-1.2 N Eos Abs (test code = AEOS) 0.17 K/cumm 0.00-0.74 N Baso Abs (test code = ABASO) 0.0 K/cumm 0.00-0.21 N [id number]& PELVIS W/O [id number] 17:36:28CT ABDOMEN AND PELVIS WITHOUT CONTRAST.CLINICAL HISTORY: [...]
[2022-05-10 11:43] LABS: Albumin 3.9 g/dL (3.4-5.0); Bilirubin Total 0.8 mg/dL (0.2-1.0); Potassium 3.1 mmol/L (3.5-5.1); Protein, Total 7.2 g/dL (6.4-8.2)
--- NOTE | 2022-05-10 12:10 | ER ---
Nurse's Notes [facility] Name: Rico Mcneill Age: 52 yrs Sex: Male : 1970 Arrival Date: 05/10/2022 Time: 10:47 Bed 3 Private MD: Diagnosis: Acute kidney injury;Hyponatremia;Hypochloremia;Dehydration;Complication of Ileostomy Presentation: 05/10 10:47 Chief complaint: EMS states: "pt is homeless and has been without a colostomy bag for a jd3 couple of days now. his colostomy is prolapsed and he reports that when it is left uncovered that its started eating away at his skin. he is also reporting body pains and nausea. we started a 20 G IV to his right AC and gave 15 mg of Toradol and 4 mg of Zofran. we also started a NS fluid bolus and the pt reported that he was starting to feel better.". Coronavirus screen: At this time, the client does not indicate any symptoms associated with coronavirus-19. Ebola Screen: No symptoms or risks identified at this time. Initial Sepsis Screen: Does the patient meet any 2 criteria? No. Patient's initial sepsis screen is negative. Does the patient have a suspected source of infection? No. Patient's initial sepsis screen is negative. Risk Assessment: Do you want to hurt yourself or someone else? Patient reports no desire to harm self or others. Onset of symptoms was May 10, 2022. 10:47 Method Of Arrival: EMS: [facility] jd3 10:47 Acuity: OCTAVIO 3 jd3 Historical: - Allergies: 10:52 NKDA; jd3 - PMHx: 10:54 ileostomy; jd3 - PSHx: 10:52 Small bowel resection with ileostomy; jd3 - Immunization history:: Adult Immunizations up to date, Client reports having NOT received the Covid vaccine. Flu vaccine is not up to date. - Social history:: Smoking status: Patient reports use of chewing tobacco. Screenin:57 Abuse screen: Denies threats or abuse. Nutritional screening: No deficits noted. jd3 Tuberculosis screening: No symptoms or risk factors identified. Fall Risk IV access (20 points). Ambulatory Aid- None/Bed Rest/Nurse Assist (0 pts). Gait- Normal/Bed Rest/Wheelchair (0 pts) Mental Status- Oriented to own ability (0 pts). Total Stanley Fall Scale indicates No Risk (0-24 pts). Assessment: 10:54 General: Appears in no apparent distress. comfortable, Behavior is calm, cooperative, jd3 appropriate for age. Pain: Complains of pain in abdomen Quality of pain is described as aching. Neuro: Mcdaniel Agitation-Sedation Scale (RASS): 0 - Alert and Calm Level of Consciousness is awake, alert, obeys commands, Oriented to person, place, time, situation. Cardiovascular: Denies chest pain, Capillary refill < 3 seconds Patient's skin is warm and dry. Respiratory: Airway is patent Respiratory effort is even, unlabored, Respiratory pattern is regular, symmetrical, Denies cough, shortness of breath. GI: Abdomen is round Ileostomy site prolapsed Abd is soft X 4 quads Abdomen is tender to palpation X 4 quads. Reports lower abdominal pain, nausea. : No signs and/or symptoms were reported regarding the genitourinary system. EENT: No signs and/or symptoms were reported regarding the EENT system. Derm: Skin is intact, Skin is dry, Skin is normal, Skin temperature is warm. Musculoskeletal: Circulation, motion, and sensation intact. Range of motion: intact in all extremities. 12:07 Reassessment: Patient appears in no apparent distress at this time. Patient and/or jd3 family updated on plan of care and expected duration. Pain level reassessed. Patient is alert, oriented x 3, equal unlabored respirations, skin warm/dry/pink. Patient states feeling better. 13:30 Reassessment: Patient appears in no apparent distress at this time. Patient and/or jd3 family updated on plan of care and expected duration. Pain level reassessed. Patient is alert, oriented x 3, equal unlabored respirations, skin warm/dry/pink. 14:50 Reassessment: Patient appears in no apparent distress at this time. Patient and/or jd3 family updated on plan of care and expected duration. Pain level reassessed. Patient is alert, oriented x 3, equal unlabored respirations, skin warm/dry/pink. 15:50 Reassessment: Patient appears in no apparent distress at this time. Patient and/or jd3 family updated on plan of care and expected duration. Pain level reassessed. Patient is alert, oriented x 3, equal unlabored respirations, skin warm/dry/pink. 16:30 Reassessment: Patient appears in no apparent distress at this time. Patient and/or jd3 family updated on plan of care and expected duration. Pain level reassessed. Patient is alert, oriented x 3, equal unlabored respirations, skin warm/dry/pink. 17:16 Reassessment: Patient appears in no apparent distress at this time. Patient and/or jd3 family updated on plan of care and expected duration. Pain level reassessed. Patient is alert, oriented x 3, equal unlabored respirations, skin warm/dry/pink. report given to Ml MART. Vital Signs: 10:52 BP 109 / 77; Pulse 80; Resp 19 S; Temp 98.8(TE); Pulse Ox 100% on R/A; Weight 65.77 kg jd3 (R); Height 6 ft. 1 in. (185.42 cm) (R); Pain 4/10; 12:07 BP 137 / 77; Pulse 77; Resp 18 S; Pulse Ox 100% on R/A; jd3 14:50 BP 97 / 61; Pulse 76; Resp 16; Pulse Ox 100% on R/A; jd3 10:52 Body Mass Index 19.13 (65.77 kg, 185.42 cm) jd3 ED Course: 10:47 Patient arrived in ED. jd3 10:52 Triage completed. jd3 10:53 Nichole Fuentes MD is Attending Physician. sd2 10:54 Arm band placed on. jd3 10:57 Patient has correct armband on for positive identification. Bed in low position. Call j light in reach. Side rails up X2. Warm blanket given. 10:58 Sukh Brooks, BRITTNY is Primary Nurse. jd3 11:20 Inserted saline lock: 22 gauge in left forearm, using aseptic technique. jd3 11:22 CMP Sent. jd3 11:22 CBC with Diff Sent. jd3 12:09 Juan Alberto Pepper MD is Hospitalizing Provider. sd2 17:16 No provider procedures requiring assistance completed. Patient admitted, IV remains in jd3 place. Administered Medications: 11:22 Drug: NS 0.9% 1000 ml Route: IV; Rate: 1 bolus; Site: left forearm; jd3 12:20 Follow up: Response: No adverse reaction; IV Status: Completed infusion; IV Intake: jd3 1000ml Medication: 10:57 VIS not applicable for this client. jd3 Intake: 12:20 IV: 1000ml; Total: 1000ml. cyrus Outcome: 12:10 Decision to Hospitalize by Provider. sd2 17:17 Admitted to Med/surg accompanied by tech, via wheelchair, room 426, with chart, Report cyrus called to Ml MART 17:17 Condition: stable 17:17 Instructed on the need for admit, Demonstrated understanding of instructions. 17:54 Patient left the ED. cyrus Signatures: Sukh Brooks RN RN Nichole Zarate MD MD sd2 Corrections: (The following items were deleted from the chart) 10:52 10:52 PMHx: SBO; cyrus bridges
--- NOTE | 2022-05-10 12:10 | EDPHYS ---
Physician Documentation [facility] Name: Rico Mcneill Age: 52 yrs Sex: Male : 1970 Arrival Date: 05/10/2022 Time: 10:47 Bed 3 Private MD: ED Physician Nichole Fuentes HPI: 05/10 10:57 This 52 yrs old Male presents to ER via EMS with complaints of colostomy problem. sd2 10:57 52-year-old male presents via EMS with chief complaint of colostomy issue. EMS reports sd2 that the patient's colostomy bag fell off approximately 2 days ago. He has been using a coffee cup over it and he has continued to have good ostomy output. He had his colostomy originally placed around the year 2000. He states this has happened before in the past and that he has had the same type of skin issues he is starting to have now due to the GI contents spilling out onto his skin. He denies any fevers but does endorse some generalized weakness and nausea that started yesterday while he was out in the heat. He reports he has been drinking water but he is homeless. He does not currently have any primary care provider or any treatment that he receives regarding his colostomy. He reports he normally has to come to the hospital when he runs out of ostomy supplies.. Historical: - Allergies: 10:52 NKDA; jd3 - PMHx: 10:54 ileostomy; jd3 - PSHx: 10:52 Small bowel resection with ileostomy; jd3 - Immunization history:: Adult Immunizations up to date, Client reports having NOT received the Covid vaccine. Flu vaccine is not up to date. - Social history:: Smoking status: Patient reports use of chewing tobacco. ROS: 10:57 Constitutional: Negative for fever, chills, and weight loss, Eyes: Negative for injury, sd2 pain, redness, and discharge, Cardiovascular: Negative for chest pain, palpitations, and edema, Respiratory: Negative for shortness of breath, cough, wheezing. Abdomen/GI: Negative for abdominal pain, vomiting, diarrhea. Positive for ostomy issue and nausea. MS/Extremity: Negative for injury and deformity, Skin: Negative for injury, rash, and discoloration, Neuro: Negative for headache, numbness and tingling. Exam: 10:57 Constitutional: This is a well developed, well nourished patient who is awake, alert, sd2 and in no acute distress. Head/Face: Normocephalic, atraumatic. Eyes: EOMI, normal conjunctiva bilaterally Chest/axilla: Normal chest wall appearance and motion. Nontender with no deformity. Cardiovascular: Regular rate and rhythm with a normal S1 and S2. No gallops, murmurs, or rubs. 2+ distal pulses. Respiratory: Lungs have equal breath sounds bilaterally, clear to auscultation and percussion. No rales, rhonchi or wheezes noted. No increased work of breathing, no retractions or nasal flaring. Abdomen/GI: Soft, non-tender, with normal bowel sounds. No guarding or rebound. No evidence of tenderness throughout. Ostomy in place to R side of abdomen with some prolapse of the stoma. Pt states this is chronic and unchanged. There is gastric content output from the stoma at this time. Skin: Warm, dry with normal turgor. Normal color with no rashes, no lesions, and no evidence of cellulitis. MS/ Extremity: Pulses equal, no cyanosis. Neurovascular intact. Full, normal range of motion. Ambulatory without difficulty. Psych: Awake, alert, with orientation to person, place and time. Behavior, mood, and affect are within normal limits. Vital Signs: 10:52 BP 109 / 77; Pulse 80; Resp 19 S; Temp 98.8(TE); Pulse Ox 100% on R/A; Weight 65.77 kg jd3 (R); Height 6 ft. 1 in. (185.42 cm) (R); Pain 4/10; 12:07 BP 137 / 77; Pulse 77; Resp 18 S; Pulse Ox 100% on R/A; jd3 14:50 BP 97 / 61; Pulse 76; Resp 16; Pulse Ox 100% on R/A; jd3 10:52 Body Mass Index 19.13 (65.77 kg, 185.42 cm) jd3 MDM: 10:53 Patient medically screened. sd2 10:57 Differential Diagnosis dehydration, electrolyte abnormality, stoma dysfunction, doubt sd2 SBO, infection among others. Data reviewed: vital signs, nurses notes. 12:08 Counseling: I had a detailed discussion with the patient and/or guardian regarding: the sd2 historical points, exam findings, and any diagnostic results supporting the discharge/admit diagnosis, lab results, the need for further work-up and treatment in the hospital. Physician consultation: Juan Alberto Pepper MD was called at 12:08, was contacted at 12:08, regarding admission, to the medical/surgical unit. and will see patient in ED, shortly. 05/10 10:54 Order name: CBC with Diff; Complete Time: 11:46 sd2 05/10 10:54 Order name: CMP; Complete Time: 11:46 sd2 05/10 11:50 Order name: Urine Microscopic Only sd2 05/10 11:50 Order name: Urine Osmolality sd2 05/10 11:50 Order name: Urine Sodium Random sd2 05/10 11:50 Order name: CK sd2 05/10 12:40 Order name: SARS RAPID jd3 05/10 13:52 Order name: Urine Dipstick-Ancillary EDMS 05/10 13:54 Order name: Urine Dipstick-Ancillary EDMS 05/10 14:10 Order name: Basic Metabolic Panel EDMS 05/10 14:10 Order name: Basic Metabolic Panel EDMS 05/10 14:10 Order name: Basic Metabolic Panel EDMS 05/10 14:10 Order name: Basic Metabolic Panel EDMS 05/10 14:10 Order name: CBC with Automated Diff EDMS 05/10 11:50 Order name: Urine Dipstick-Ancillary (obtain specimen); Complete Time: 14:32 sd2 05/10 14:10 Order name: CONS Physician Consult EDMS 05/10 14:10 Order name: Renal EDMS 05/10 14:10 Order name: CBC with Automated Diff EDMS 05/10 14:10 Order name: CBC with Automated Diff EDMS 05/10 14:10 Order name: CBC with Automated Diff EDMS 05/10 14:10 Order name: Magnesium EDMS 05/10 14:10 Order name: Magnesium EDMS 05/10 14:10 Order name: Phosphorus EDMS 05/10 14:10 Order name: Phosphorus EDMS Administered Medications: 11:22 Drug: NS 0.9% 1000 ml Route: IV; Rate: 1 bolus; Site: left forearm; jd3 12:20 Follow up: Response: No adverse reaction; IV Status: Completed infusion; IV Intake: jd3 1000ml Disposition Summary: 05/10/22 12:10 Hospitalization Ordered Hospitalization Status: Inpatient Admission sd2 Provider: Juan Alberto Pepper sd2 Location: Telemetry/MedSurg (Inpatient) sd2 Condition: Stable sd2 Problem: new sd2 Symptoms: are unchanged sd2 Bed/Room Type: Standard sd2 Room Assignment: 426(05/10/22 16:12) kj1 Diagnosis - Acute kidney injury sd2 - Hyponatremia sd2 - Hypochloremia sd2 - Dehydration sd2 - Complication of Ileostomy sd2 Forms: - Medication Reconciliation Form sd2 - SBAR form sd2 Signatures: Dispatcher [employer] Sukh Franks RN RN jd3 Jackson, Kandis kj1 Nichole Fuentes MD MD sd2 Corrections: (The following items were deleted from the chart) 10:52 10:52 PMHx: SBO; cyrus jd3 16:12 12:10 sd2 kj1
[2022-05-10 13:10] LABS: SARS-CoV-2 Antigen Rapid Res Negative (Negative)
[2022-05-10 13:52] LABS: Urine Blood Negative (Negative); Urine Glucose Negative (Negative); Urine Protein 1+ (Negative)
[2022-05-10 14:04] LABS: Urine Mucus Slight /HPF (None Seen); Urine RBC <5 /HPF (None Seen)
[2022-05-10] MEDS ORDERED: Ringers Lactate 1,000 ML IV SCH ×2 (15:00→15:33)
[2022-05-10] MEDS ORDERED: POTASSIUM 25 MEQ EFFERV TAB FT ONE ×2 (15:30→21:47)
--- NOTE | 2022-05-10 15:33 | P.CNS ---
Date of Consult: 05/10/22 Reason for Consult: Hyponatremia Requesting Physician: Juan Alberto Pepper Chief Complaint: Colostomy complication History of Present Illness: 10:57 This 52 yrs old Male presents to ER via EMS with complaints of colostomy problem. sd2 10:57 52-year-old male presents via EMS with chief complaint of colostomy issue. EMS reports sd2 that the patient's colostomy bag fell off approximately 2 days ago. He has been using a coffee cup over it and he has continued to have good ostomy output. He had his colostomy originally placed around the year 2000. He states this has happened before in the past and that he has had the same type of skin issues he is starting to have now due to the GI contents spilling out onto his skin. He denies any fevers but does endorse some generalized weakness and nausea that started yesterday while he was out in the heat. He reports he has been drinking water but he is homeless. He does not currently have any primary care provider or any treatment that he receives regarding his colostomy. He reports he normally has to come to the hospital when he runs out of ostomy supplies.. Allergies No Known Drug Allergies Allergy (Verified 09/09/16 22:36) Unknown Home medications list reviewed: Yes Home Medications: Loperamide [Imodium*] 2 mg PO Q4H PRN #30 tab 04/18/22 - Past Medical/Surgical History Diabetic: No -: Hypothyroidism -: Bipolar Disorder -: HTN -: bowel obstruction -: Colectomy -: Ileostomy Psychosocial/ Personal History: Patient is homeless. - Family History Father Medical History: Cancer Mother Medical History: Heart disease - Social History Smoking Status: Never smoker Alcohol use: Yes CD- Drugs: No Caffeine use: Yes Review of Systems 10-point ROS is otherwise unremarkable General: Weakness, Malaise Physical Examination General: In no apparent distress, Oriented x3, Cooperative HEENT: Atraumatic Neck: Supple Respiratory: Clear to auscultation bilaterally Cardiovascular: No edema, Regular rate/rhythm Gastrointestinal: Soft and benign, Non-distended Musculoskeletal: No clubbing, No contractures Integumentary: No rashes, No cyanosis Neurological: Normal speech Laboratory Data (last 24 hrs) 05/10/22 11:16: Sodium 123 L, Potassium 3.1 L, BUN 78 H, Creatinine 2.75 H, Glucose 103, Total Bilirubin 0.8, AST 25, ALT 26, Alkaline Phosphatase 78 05/10/22 11:16: WBC 6.50, Hgb 11.8 L, Hct 35.7 L, Plt Count 312 Conclusions/Impression: Proteinuria -No NSAIDs Hypovolemia hyponatremia -Continue IVF with LR -Start oral sodium bicarb Hypokalemia -Replete with liquid potassium Acidosis -Continue IVF with LR -Start oral bicarb HTN -Monitor BP Anemia in chronic illness -Monitor H&H Vitamin D3 Deficiency -Start cholecalciferol daily Case reviewed with Dr. Pepper Thank you kindly for the referral
--- NOTE | 2022-05-10 15:48 | P.HP ---
Certification for Inpatient Patient admitted to: Inpatient With expected LOS: >2 Midnights Patient will require the following post-hospital care: None Practitioner: I am a practitioner with admitting privileges, knowledge of patient current condition, hospital course, and medical plan of care. Services: Services provided to patient in accordance with Admission requirements found in Title 42 Section 412.3 of the Code of Federal Regulations Patient History Date of Service: 05/10/22 Reason for admission: Hyponatremia, Colostomy complication History of Present Illness: Mr. Rico Mcneill is a pleasant 52 year old male who has a past medical history of bipolar disorder, hypertension, hypothyroidism, and a small bowel obstruction s/p ileostomy (~[id number]) who presents to the [facility] Emergency Department for dizziness. He reports that, about two days ago, his ileostomy bag fell off and he has not had a replacement for the bag. He states that he is homeless and has been living under a bridge, so he is highly concerned that his ileostomy site may become infected. Given the hot temperatures outside, he has tried to stay hydrated by drinking water, but has recently began feeling dizziness when standing upright. He denies any obvious inciting or alleviating factors. He has not tried taking any medications for his symptoms. On review of systems, he denies any fevers, chills, headaches, syncope, weakness, chest pain, palpitations, shortness of breath, wheezing, cough, abdominal pain, nausea/vomiting, diarrhea, consti pation, hematochezia, melena, dysuria, hematuria, myalgia, or any other symptoms. He presented to the Emergency Department for further evaluation. Upon presentation, his vital signs were stable. His laboratory studies were notable for a sodium of 123, potassium of 3.1, a BUN of 78, and a creatinine of 2.75 (baseline ~1.11.2). In the Emergency Department, he was given 1 L Normal Saline. He was admitted to the General Internal Medicine service for further evaluation. Allergies No Known Drug Allergies Allergy (Verified 09/09/16 22:36) Unknown Home medications list reviewed: Yes (No home meds) Home Medications: Loperamide [Imodium*] 2 mg PO Q4H PRN #30 tab 04/18/22 - Past Medical/Surgical History Diabetic: No -: Hypothyroidism -: Bipolar Disorder -: HTN -: bowel obstruction -: Colectomy -: Ileostomy Psychosocial/ Personal History: Patient is homeless. - Family History Father -: Cancer Mother -: Heart disease - Social History Counseled patient to stop smoking for: less than 10 minutes (chewing tobacco) Alcohol use: No CD- Drugs: No Caffeine use: No Review of Systems 10-point ROS is otherwise unremarkable General: Unremarkable Eyes: Unremarkable ENT: Unremarkable Respiratory: Unremarkable Cardiovascular: Unremarkable Gastrointestinal: Unremarkable Genitourinary: Unremarkable Musculoskeletal: Unremarkable Integumentary: Unremarkable Neurological: Other (dizziness) Physical Examination - Vital Signs Temperature: 98.8 F Blood Pressure: 109/77 Pulse: 80 Respirations: 19 Pulse Ox (%): 100 (room air) - Physical Exam General: Alert, In no apparent distress, Oriented x3 HEENT: Atraumatic, PERRLA, Other (mucous membranes dry), EOMI, Sclerae nonicteric Neck: Supple, JVD not distended Respiratory: Clear to auscultation bilaterally, Normal air movement Cardiovascular: No edema, Regular rate/rhythm, Normal S1 S2, No gallops, No rubs, No murmurs Gastrointestinal: Normal bowel sounds, Non-distended, No tenderness, No rebound, No guarding, Other (ileostomy bag has been replaced and there is green/brown liquid stool present. Prolapse bowel visualized in bag.) Musculoskeletal: No clubbing Integumentary: No rashes Neurological: Normal speech, Cranial nerves 3-12 intact, Normal affect - Studies Laboratory Data (last 24 hrs) 05/10/22 11:16: Sodium 123 L, Potassium 3.1 L, BUN 78 H, Creatinine 2.75 H, Glucose 103, Total Bilirubin 0.8, AST 25, ALT 26, Alkaline Phosphatase 78 05/10/22 11:16: WBC 6.50, Hgb 11.8 L, Hct 35.7 L, Plt Count 312 Assessment and Plan - Plan # KDIGO Stage II Acute Kidney Injury likely secondary to Dehydration - Nephrology consulted and spoke with Dr. Wray - recommendations appreciated - Creatinine = 2.75 (baseline creatinine ~1.1-1.2) - Urinalysis = 5-10 hyaline casts, 1+ protein - IV fluids per Nephrology - S/P 1 L NS in ED - Monitor creatinine and urine output - If worsening, obtain renal ultrasound - Renally dose medications # Suspect Hypovolemic Hyponatremia # Hypokalemia - Nephrology consulted and spoke with Dr. Wray - recommendations appreciated - S/P 1 L NS in ED, started on LR @ 100 mL/hr - Serial BMP - Urine osmolality, serum osmolality, and urine sodium ordered in ED # Prolapsed Bowel into Ileostomy # History of Small Bowel Obstruction s/p Ileostomy (~[id number]) - Ileostomy bag has been replaced - General Surgery was consulted regarding prolapsed bowel - recommendations appreciated # Bipolar Disorder # Hypothyroidism # Hypertension - Not on any medications as an outpatient # Homelessness - Consulted CM for assistance with information on homeless shelters Juan Alberto Pepper M.D. Discharge Plan: Home Plan to discharge in: Greater than 2 days - Advance Directives Does patient have a Living Will: No Does patient have a Durable POA for Healthcare: No - Code Status/Comfort Care Code Status Assessed: Yes Code Status: Full Code
[2022-05-10 18:12] LABS: Potassium 3.6 mmol/L (3.5-5.1)
[2022-05-10] MEDS: VITAMIN D 5,000 UNIT CAP PO SCH (18:39)
[2022-05-10] MEDS: SODIUM BICARB 325 MG TAB PO SCH ×3 (18:39→21:06)
[2022-05-10] MEDS: HEPARIN 5000 UNIT/ML 1 ML VIAL SQ SCH (21:06)
[2022-05-10] MEDS ORDERED: NACHLORIDE 0.45% 1,000 ML IV SCH (22:00)
[2022-05-11 05:56] LABS: Absolute Lymphocytes (CBC) 1.9 K/uL (0.7-4.9); Hematocrit 32.9 % (39.6-49.0); Lymphocytes % 35.7 % (15.3-44.8); MPV 7.9 fL (7.6-11.3); RBC Red Blood Cell Count 3.96 M/uL (4.33-5.43)
[2022-05-11 06:08] LABS: Magnesium 2.2 mg/dL (1.8-2.4); Phosphorus 2.5 mg/dL (2.5-4.9); Potassium 3.7 mmol/L (3.5-5.1)
[2022-05-11] MEDS: SODIUM BICARB 325 MG TAB PO SCH ×2 (08:20→11:47)
[2022-05-11] MEDS: HEPARIN 5000 UNIT/ML 1 ML VIAL SQ SCH ×2 (08:20→20:44)
[2022-05-11] MEDS: VITAMIN D 5,000 UNIT CAP PO SCH (08:20)
[2022-05-11] MEDS ORDERED: NA CHLORIDE 0.9% 1,000 ML IV SCH (11:00)
[2022-05-11] MEDS ORDERED: POTASSIUM 25 MEQ EFFERV TAB PO ONE (12:02)
--- NOTE | 2022-05-11 12:05 | P.PN ---
Date of Service: 05/11/22 Vital Signs Temp Pulse Resp BP Pulse Ox 97.8 F 69 14 96/58 L 98 05/11/22 08:00 05/11/22 08:00 05/11/22 08:00 05/11/22 08:00 05/11/22 08:00 Medications Cholecalciferol (Vitamin D 5,000 Unit Cap) 5,000 unit PO DAILY [facility] Last Admin: 05/11/22 08:20 Dose: 5,000 unit Heparin Sodium (Porcine) (Heparin 5000 Unit/Ml 1 Ml Vial) 5,000 unit SQ Q12HR [facility] Last Admin: 05/11/22 08:20 Dose: 5,000 unit Sodium Chloride (Ns 1000 Ml Ivbag) 1,000 mls @ 100 mls/hr IV .Q10H [facility] Last Admin: 05/11/22 11:47 Dose: 1,000 mls Sodium Bicarbonate (Sodium Bicarb 325 Mg Tab) 650 mg PO QID [facility] Last Admin: 05/11/22 11:47 Dose: 650 mg Sodium Chloride (Flush Normal Saline 10 Ml) 10 ml IV BID [facility] Last Admin: 05/11/22 08:21 Dose: 10 ml Lab Results (last 24 hrs) 05/10/22 13:50: Urine pH 6.0, Ur Specific [place] 1.020, Glucose (UA)(Auto) Nega tive, Urine Ketones Negative, Urine Blood Negative, Urine Nitrite Negative, Ur Leukocyte Esterase Negative, Urine Total Protein 1+ H 05/10/22 13:50: Ur Random Sodium < 15 L 05/10/22 13:50: Urine Osmolality 617 05/10/22 13:50: Urine RBC <5, Urine WBC <5, Ur Squamous Epith Cells <5, Hyaline Casts 5-10 H, Urine Mucus Slight 05/10/22 12:51: SARS-CoV-2 Ag (Rapid) Negative 05/10/22 11:16: Creatine Kinase 323 H Assessment/ Plan: Nephrology No dyspnea No chest pain Feeling better No acute events overnight Vitals, medications, blood work and imaging reviewed in the chart. Physical Examination General: In no apparent distress, Oriented x3, Cooperative HEENT: Atraumatic Neck: Supple Respiratory: Clear to auscultation bilaterally Cardiovascular: No edema, Regular rate/rhythm Gastrointestinal: Soft and benign, Non-distended Musculoskeletal: No clubbing, No contractures Integumentary: No rashes, No cyanosis Neurological: Normal speech Laboratory Data (last 24 hrs) 05/10/22 11:16: Sodium 123 L, Potassium 3.1 L, BUN 78 H, Creatinine 2.75 H, Glucose 103, Total Bilirubin 0.8, AST 25, ALT 26, Alkaline Phosphatase 78 05/10/22 11:16: WBC 6.50, Hgb 11.8 L, Hct 35.7 L, Plt Count 312 Conclusions/Impression: ALMA likely due to hypovolemia CKD III with Proteinuria -No NSAIDs -Change IVF to NS today Hypovolemia hyponatremia -Change IVF to NS Hypokalemia -Replete as ordered Acidosis, resolved -Discontinue oral bicarb HTN complicated by episodes of hypotension -Monitor BP -Continue IVF at this time Anemia in chronic illness -Monitor H&H Vitamin D3 Deficiency -Continue cholecalciferol daily Case reviewed with Dr. Pepper
[2022-05-11] MEDS ORDERED: NA CHLORIDE 0.9% 1,000 ML with POTASSIUM CL 20 MEQ IV SCH ×2 (13:00)
[2022-05-11] MEDS: ONDANSETRON 4 MG/2 ML VIAL IV PRN (16:30)
--- NOTE | 2022-05-11 17:31 | PN ---
Date of Progress Note: 05/11/2022 Subjective: The patient came to the hospital with dehydration, increased output from his colostomy. The patient had recent admission with the same complaint. The patient was seen by us back in late A ugust as documented in the chart. The patient never seen any other Nephrology as outpatient yet was seen yesterday by Dr. Wray. Physical Examination: Vital Signs: Blood pressure 96/58, pulse of 69, afebrile. Chest: Clear to auscultation. Heart: S1, S2. Regular. Abdomen: Soft. Colostomy. Extremities: No edema. Neuro: Alert. No focality. Laboratory Data: WBC 5.3, H and H 10.8/32.9. Sodium 130, potassium 3.7, bicarb 22, BUN 48, creatini ne 1.6, GFR of 50, calcium 8.2, magnesium 2.2. Iron saturation 24. No ferritin was done. Current Medications: The patient on include: 1.Heparin. 2.Normal saline. 3.KCl. 4.Cholecalciferol. Assessment And Plan: 1.Acute kidney injury secondary to prerenal, secondary to GI loss on the recovery phase, looked to m e still on the dry side. I am going to continue hydration and we will monitor the patient. Continue normal saline. 2.Hyponatremia secondary to depletional, secondary to GI loss. Sodium trending up. Continue normal saline, appropriate correction. 3.Hypokalemia. We will supplement. 4.Increased ileostomy output. We will follow up with the primary and GI. Time spent examining the patient [id number], reviewing data, lab and radiology, placing order, disc ussing the case with the patient and explaining risks, benefits, alternatives, discussing the case wi th the staff member including nursing and the hospitalist more than 35 minutes. TORI/CAROLE Voice ID: [id number] Report ID: [id number]
--- NOTE | 2022-05-11 18:11 | P.PN ---
Subjective Date of Service: 05/11/22 Chief Complaint: Hyponatremia, Colostomy complication Subjective: Improving No acute events overnight. He reports that he feels much better this morning. He is interested in pursuing a homeless prison at discharge. Review of Systems 10-point ROS is otherwise unremarkable General: Weakness (generalized) Physical Examination - Vital Signs Temperature: 97.8 F Blood Pressure: 92/65 Pulse: 69 Respirations: 14 Pulse Ox (%): 100 Assessment And Plan - Plan - Physical Exam General: Alert, In no apparent distress, Oriented x3 HEENT: Atraumatic, PERRLA, Other (mucous membranes moist), EOMI, Sclerae nonicteric Neck: Supple, JVD not distended Respiratory: Clear to auscultation bilaterally, Normal air movement Cardiovascular: No edema, Regular rate/rhythm, Normal S1 S2, No gallops, No rubs, No murmurs Gastrointestinal: Normal bowel sounds, Non-distended, No tenderness, No rebound, No guarding, Other (ileostomy bag has been replaced and there is green/brown liquid stool present. Prolapse bowel visualized in bag.) Musculoskeletal: No clubbing Integumentary: No rashes Neurological: Normal speech, Cranial nerves 3-12 intact, Normal affect # KDIGO Stage II Acute Kidney Injury likely secondary to Dehydration - Nephrology consulted and spoke with Dr. Arizmendi - recommendations appreciated - Creatinine = 2.75 -> 1.63 (baseline creatinine ~1.1-1.2) - Urinalysis = 5-10 hyaline casts, 1+ protein - IV fluids per Nephrology - S/P 1 L NS in ED - Now on LR @ 100 mL/hr - Monitor creatinine and urine output - If worsening, obtain renal ultrasound - Renally dose medications # Suspect Hypovolemic Hyponatremia # Hypokalemia - Nephrology consulted and spoke with Dr. Arizmendi - recommendations appreciated - Sodium trend: 123 -> 130 - S/P 1 L NS in ED, started on LR @ 100 mL/hr - Serial BMP - Urine osmolality, serum osmolality, and urine sodium ordered in ED # Prolapsed Bowel into Ileostomy # History of Small Bowel Obstruction s/p Ileostomy (~[id number]) - Ileostomy bag has been replaced - General Surgery was consulted regarding prolapsed bowel - recommendations appreciated # Bipolar Disorder # Hypothyroidism # Hypertension - Not on any medications as an outpatient # Homelessness - Consulted CM for assistance with information on homeless shelters Juan Alberto Pepper M.D.
[2022-05-11 18:44] LABS: Potassium 3.6 mmol/L (3.5-5.1)
[2022-05-11] MEDS ORDERED: NA CHLORIDE 0.9% 1,000 ML ONE (22:37)
[2022-05-11] MEDS: NA CHLORIDE 0.9% 1,000 ML IV SCH (22:40)
[2022-05-12 03:44] LABS: Absolute Lymphocytes (CBC) 1.8 K/uL (0.7-4.9); Hematocrit 28.2 % (39.6-49.0); Lymphocytes % 39.5 % (15.3-44.8); MCV 82.3 fL (80-100); MPV 7.8 fL (7.6-11.3); RBC Red Blood Cell Count 3.43 M/uL (4.33-5.43)
[2022-05-12 04:38] LABS: Albumin 2.8 g/dL (3.4-5.0); Folic Acid, (Folate) 8.8 ng/mL (3.1-17.5); Magnesium 1.8 mg/dL (1.8-2.4); Phosphorus 2.4 mg/dL (2.5-4.9); Potassium 3.6 mmol/L (3.5-5.1)
[2022-05-12] MEDS: NA CHLORIDE 0.9% 1,000 ML IV SCH ×3 (07:48→17:25)
[2022-05-12] MEDS: HEPARIN 5000 UNIT/ML 1 ML VIAL SQ SCH ×2 (07:49→20:35)
[2022-05-12] MEDS: VITAMIN D 5,000 UNIT CAP PO SCH (07:49)
[2022-05-12] MEDS: ONDANSETRON 4 MG/2 ML VIAL IV PRN (07:49)
[2022-05-12] MEDS ORDERED: POTASS/SODIUM PHOSPHATE 1 PKT POWD.PACK PO ONE (10:44)
[2022-05-12] MEDS ORDERED: POTASSIUM CL SA 10 MEQ TAB PO ONE (10:49)
[2022-05-12] MEDS: CYANOCOBALAMIN 1000MCG/ML INJ SQ SCH (11:00)
--- NOTE | 2022-05-12 13:55 | CON ---
Date of Consultation: 05/12/2022 Diagnosis: Hyponatremia and dizziness. History Of Present Illness: This is the case of a male, who is homeless, who came to the ER with karrie quach, diagnosed with hyponatremia. The patient has history of an ileostomy for the last 20 years. He ran out of bag. He was admitted to the hospital and started with medical treatment and a surgica l consult was obtained to evaluate the ostomy since this is about 1 cm off. No nausea. No vomiting. No shortness of breath. No abdominal pain at this moment. No fever. Dizziness is gone. Review of Systems: Ten points otherwise unremarkable. See H and P. Allergies: NONE. Medications: Reviewed. Past Medical History: Includes history of ileostomies, hypertensions, bipolar disorder. Social History: He does not smoke. Does not drink alcohol. Physical Examination: General: The patient is awake, alert. HEENT: Pupils are equal, reactive. Anicteric. Neck: Supple. Chest: Clear. Heart: S1, S2. Abdomen: Soft and depressible. Ostomy viable. It is about 1 cm mild prolapse. Initially reducible . No cellulitis present. [place] and viable. Extremities: Good capillary refill. Laboratory Data: Blood work shows WBC count of 4 with hemoglobin of 9.5 and platelets of 215. Sodiu m is 134. Assessment: Hyponatremia and dizziness. Plan: From the surgical standpoint, no surgical plan at this moment. We asked him to not to do heav y lifting and if he is going to be sneezing or coughing, just hold his ostomy. If that becomes prola psed even more than, he has to most likely have revised, but at this moment it looks viable and funct ional. HM/MODL Voice ID: [id number] Report ID: [id number]
--- NOTE | 2022-05-12 23:37 | PN ---
Date of Progress Note: 05/12/2022 Chief Complaint: Acute kidney injury, volume deficient. Subjective: The patient has history of multiple medical problems. He is admitted for acute kidney i njury secondary to prerenal azotemia, nonoliguric ATN. The patient developed volume depletion and wa s found to have hyponatremia. Sodium level overall is stabilizing. Potassium level is within normal limits. Review of Systems: Denies fever or chills. Physical Examination: Lungs: Diminished breath sounds at bases. Heart: S1, S2. Abdomen: Soft. Extremities: No edema. Impression And Plan: 1.[id number] kidney injury secondary to GI loss. Patient is on IV fluids. Patient developed hypotension today and normal saline is initiated for volume control. 2.Hyponatremia. Continue normal saline. 3.Hypokalemia, supplementation. Monitor magnesium and phosphorus level. EB/MODL Voice ID: [id number] Report ID: [id number]
[2022-05-13 02:08] VITALS: O2SAT 98
[2022-05-13] MEDS: NA CHLORIDE 0.9% 1,000 ML IV SCH (03:00)
[2022-05-13 03:54] VITALS: BMI 19.8
[2022-05-13 08:50] VITALS: BP 104/56; TEMP 97.7
--- NOTE | 2022-05-13 08:54 | P.PN ---
Subjective Date of Service: 05/12/22 Subjective: No new changes, No C/O voiced, Improving Review of Systems 10-point ROS is otherwise unremarkable Physical Examination - Vital Signs Temperature: 97.7 F Blood Pressure: 104/56 Pulse: 67 Respirations: 18 Pulse Ox (%): 100 - Physical Exam General: Alert, In no apparent distress, Oriented x3 HEENT: Atraumatic, PERRLA, EOMI Neck: Supple, JVD not distended Respiratory: Clear to auscultation bilaterally, Normal air movement Cardiovascular: Regular rate/rhythm, Normal S1 S2 Gastrointestinal: Normal bowel sounds, No tenderness Musculoskeletal: No tenderness Integumentary: No rashes Neurological: Normal speech, Normal tone, Normal affect Lymphatics: No axilla or inguinal lymphadenopathy - Studies Medications List Reviewed: Yes Assessment & Plan - Problems (Diagnosis) (1) Hyponatremia Current Visit: No Status: Acute - Plan Plan: 1. Continue with IV fluids 2. Continue with colostomy care 3. Monitor sodium level 4. Anticipate discharge in a.m. Discharge Plan: Home Plan to discharge in: 24 Hours - Advance Directives Does patient have a Living Will: No Does patient have a Durable POA for Healthcare: No - Code Status/Comfort Care Code Status: Full Code Critical Care: No Time Spent Managing PTS Care (In Minutes): 35
--- NOTE | 2022-05-13 08:55 | P.DS ---
Discharge Date: 05/13/22 Disposition: ROUTINE DISCHARGE Discharge Condition: GOOD Reason for Admission: Hyponatremia, Colostomy complication - Problems (1) Hyponatremia Current Visit: No Status: Acute Brief History of Present Illness: Mr. Rico Mcneill is a pleasant 52 year old male who has a past medical history of bipolar disorder, hypertension, hypothyroidism, and a small bowel obstruction s/p ileostomy (~[id number]) who presents to the [facility] Emergency Department for dizziness. He reports that, about two days ago, his ileostomy bag fell off and he has not had a replacement for the bag. He states that he is homeless and has been living under a bridge, so he is highly concerned that his ileostomy site may become infected. Given the hot temperatures outside, he has tried to stay hydrated by drinking water, but has recently began feeling dizziness when standing upright. He denies any obvious inciting or alleviating factors. He has not tried taking any medications for his symptoms. On review of systems, he denies any fevers, chills, headaches, syncope, weakness, chest pain, palpitations, shortness of breath, wheezing, cough, abdominal pain, nausea/vomiting, diarrhea, constipation, hematochezia, melena, dysuria, hematuria, myalgia, or any other symptoms. He presented to the Emergency Department for further evaluation. Upon presentation, his vital signs were stable. His laboratory studies were notable for a sodium of 123, potassium of 3.1, a BUN of 78, and a creatinine of 2.75 (baseline ~1.11.2). In the Emergency Department, he was given 1 L Normal Saline. He was admitted to the General Internal Medicine service for further evaluation. Hospital Course: Patient has done well during hospitalization. Patient sodium is corrected. Patient was also given colostomy equipment. He is tolerating his diet. Patient is clinically doing well and stable for discharge. Patient does not want to go to a usp and states he will remain living in his current situation. Vital Signs/Physical Exam: Temp Pulse Resp BP Pulse Ox 97.7 F 67 18 104/56 L 100 05/13/22 08:54 05/13/22 08:54 05/13/22 08:54 05/13/22 08:54 05/13/22 08:54 General: Alert, In no apparent distress, Oriented x3 Laboratory Data at Discharge: WBC 4.50 K/uL (4.3-10.9) 05/12/22 03:04 Hgb 9.5 g/dL (13.6-17.9) L D 05/12/22 03:04 Hct 28.2 % (39.6-49.0) L 05/12/22 03:04 Plt Count 215 K/uL (152-406) 05/12/22 03:04 Sodium 134 mmol/L (136-145) L 05/12/22 03:04 Potassium 3.6 mmol/L (3.5-5.1) 05/12/22 03:04 BUN 31 mg/dL (7-18) H 05/12/22 03:04 Creatinine 1.14 mg/dL (0.55-1.3) 05/12/22 03:04 Glucose 96 mg/dL (74-106) 05/12/22 03:04 Phosphorus 2.4 mg/dL (2.5-4.9) L 05/12/22 03:04 Magnesium 1.8 mg/dL (1.8-2.4) 05/12/22 03:04 Total Bilirubin 0.8 mg/dL (0.2-1.0) 05/10/22 11:16 AST 25 U/L (15-37) 05/10/22 11:16 ALT 26 U/L (12-78) 05/10/22 11:16 Alkaline Phosphatase 78 U/L (45-117) 05/10/22 11:16 Home Medications: NK [No Home Meds] 05/11/22 Physician Discharge Instructions: -DC IV and DC home -Follow-up with PCP in 1 to 2 weeks -Follow-up with nephrology in 1 to 2 weeks -Please call Dr. Chapa at [phone] if any questions regarding hospital stay -Please call nursing station at [phone] if any nursing or medication ques tions -Return to the emergency room if symptoms worsen Diet: Regular Activity: Fall precautions Followup: NONE,NONE [Primary Care Provider] - Time spent managing pt's care (in minutes): 25
[2022-05-13] MEDS ORDERED: MULTIVITAMIN TAB PO SCH (09:00)
[2022-05-13] MEDS: CYANOCOBALAMIN 1000MCG/ML INJ SQ SCH (09:00)
[2022-05-13 09:07] LABS: Absolute Lymphocytes (CBC) 1.7 K/uL (0.7-4.9); Hematocrit 29.5 % (39.6-49.0); Lymphocytes % 25.2 % (15.3-44.8); MCV 83.8 fL (80-100); MPV 7.6 fL (7.6-11.3); RBC Red Blood Cell Count 3.52 M/uL (4.33-5.43)
[2022-05-13 09:17] LABS: Albumin 2.8 g/dL (3.4-5.0); Magnesium 1.7 mg/dL (1.8-2.4); Phosphorus 2.3 mg/dL (2.5-4.9); Potassium 3.8 mmol/L (3.5-5.1)
[2022-05-13] MEDS: HEPARIN 5000 UNIT/ML 1 ML VIAL SQ SCH (09:47)
[2022-05-13] MEDS: VITAMIN D 5,000 UNIT CAP PO SCH (09:47)
== END 2022-05-13 10:40 | disposition home or self-care (01) | DRG 683 ==
LOC: ER 10:43 → ERHOLD 14:06 → 4TH 17:14
PROVIDERS: ADMIT Internal Medicine; ATTEND Hospitalist
DX: N17.9 Acute kidney failure, unspecified (principal); E87.1 Hypo-osmolality and hyponatremia; E87.2 Acidosis; E86.1 Hypovolemia; E87.6 Hypokalemia; D63.8 Anemia in other chronic diseases classified elsewhere; F31.9 Bipolar disorder, unspecified; I12.9 Hypertensive chronic kidney disease with stage 1 through stage 4 chronic kidney disease, or unspecified chronic kidney disease; N18.30 Chronic kidney disease, stage 3 unspecified; E03.9 Hypothyroidism, unspecified; E86.0 Dehydration; E55.9 Vitamin D deficiency, unspecified; R80.9 Proteinuria, unspecified; F17.220 Nicotine dependence, chewing tobacco, uncomplicated; Z43.3 Encounter for attention to colostomy; Z71.6 Tobacco abuse counseling; Z59.00 Homelessness unspecified; Z79.899 Other long term (current) drug therapy; Z28.310 Unvaccinated for COVID-19; Z20.822 Contact with and (suspected) exposure to COVID-19
CPT/HCPCS: 36415; 80048; 80053; 80069; 81003; 81015; 82550; 82607; 82746; 83540; 83735; 83935; 84100; 84300; 84466; 85025; 87811; 96360; 99285; J1644; J2405; J3420; J3480; J7030; J7120

== ENCOUNTER 2022-05-14 18:21 | Emergency (ER) | payer SELFPAY ==
--- OUTSIDE RECORDS SUMMARY | 2022-05-14 19:09 | XMS REPORT | Continuity of Care Document ---
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 whether 01/12/2022. lower urinary tract symptoms present tamsulosin 2021- No Benign .4mg QD Take 1 [place] (FLOMAX) 01-12 prostatic capsule by [employer] 0.4 mg 00:00: 00:00 hyperplasia mouth capsule 00 :00 , daily. unspecified Start on whether 01/12/2022. lower urinary tract symptoms present tamsulosin 2021-2021- No Benign .4mg QD Take 1 M[place] (FLOMAX) 01-12 prostatic capsule by [employer] 0.4 mg 00:00: 00:00 hyperplasia mouth capsule [...] B-12, 1,000 00 daily mcg tablet cyanocobala 0 Yes Malnutritio 1000ug QD Take 1 [place] min, 5-21 n due to tablet by Health vitamin 00:00: starvation mouth B-12, 1,000 00 daily mcg tablet cyanocobala Yes Malnutritio 1000ug QD Take 1 [place] min, 5-21 n due to tablet by Health vitamin 00:00: starvation mouth B-12, 1,000 00 daily mcg tablet nutritional 2021- No Malnutritio 1{packa Take 1 [place] supplemment 5-21 06-21 n due to ge} Package by Health (BOOST) 00:00: 00:00 starvation mouth 3 oral liquid 00 :00 times daily nutritional 2021- No Malnutritio 1{packa Take 1 [place] supplemment 5-21 06-21 n due to ge} Package by Health (BOOST) 00:00: 00:00 starvation mouth 3 oral liquid 00 :00 times daily nutritional 2021- No Malnutritio 1{packa Take 1 [place] supplemment 5-21 06-21 n due to ge} Package by Health (BOOST) 00:00: 00:00 starvation mouth 3 oral liquid 00 :00 times daily nutritional 2021- No Malnutritio 1{packa Take 1 [place] supplemment 5-21 06-21 n due to ge} Package by Health (BOOST) 00:00: 00:00 starvation mouth 3 oral liquid 00 :00 times daily loperamide 2021- No Disorder of 2mg Take 1 [place] (IMODIUM) 2 -11 01-21 stoma capsule by [employer] mg capsule 00:00: 00:00 mouth once 00 :00 for 1 dose loperamide 2021- No Disorder of 2mg Take 1 [place] (IMODIUM) 2 01-11-21 stoma capsule by [employer] mg capsule 00:00: 00:00 mouth once 00 :00 for 1 dose loperamide 2021- No Disorder of 2mg Take 1 [place] (IMODIUM) 2 5- 05-21 stoma capsule by [employer] mg capsule 00:00: 00:00 mouth once 00 :00 for 1 dose loperamide 2021- No Disorder of 2mg Take 1 [place] (IMODIUM) 2 5-11 01-21 stoma capsule by [employer] mg capsule 00:00: 00:00 mouth once 00 [...] 09/07/21 at 2045, JOÃO iopamidol 2021- No [id number] 100mL 100 mL, Univers (ISOVUE 09-08 Intravenou [...] Indication s: acute pain ondansetron 2021-0 Yes [id number] 4mg Take 1 Univers 4 mg 1-15 [...] Indication s: acute pain ondansetron 2-0 Yes [id number] 4mg Take 1 Univers 4 mg 1-15 [...] Indication s: acute pain ondansetron 2021-0 Yes [id number] 4mg Take 1 [facility] 4 mg 1-15 [...] Indication s: acute pain ondansetron 2-0 Yes [id number] 4mg Take 1 [facility] 4 mg 1-15 [...] (scale 4-6). Indication s: acute pain ondansetron 2022-0 Yes [id number] 4mg Take 1 Univers 4 mg 1-15 tablet by ity of disintegrat 00:00: mouth [place] ing tablet 00 every 8 Medica l (eight) Branch hours as needed for Nausea and Vomiting (N/V). traMADoL 50 2021- No [id number] 50mg Take 1 Uni vers mg tablet -15 08-10 tablet by ity of 00:00: 00:00 mouth [place] 00 :00 every 6 Medical (six) Branch hours as needed for Pain (scale 4-6). Indication s: acute pain ondansetron 2021- No [id number] 4mg Take 1 Univers 4 mg -15 08-10 tablet by ity of disintegrat 00:00: [...] tablet 00:00: mouth [place] 00 daily. [facility] Branch vitamin 2021-0 Yes 1000ug Take 1 Univer s B-12 1,000 1-13 tablet by ity of mcg tablet 00:00: mouth [place] 00 daily. [facility] Branch vitamin 2021-0 Yes 1000ug Take 1 Univer s B-12 1,000 1-13 tablet by ity of mcg tablet 00:00: mouth [place] 00 daily. [facility] Branch vitamin 2022-0 Yes 1000ug Take 1 Univer s B-12 1,000 1-13 tablet by ity of mcg tablet 00:00: mouth [place] 00 daily. [facility] Branch vitamin 2022-0 Yes 1000ug Take 1 Univer s B-12 1,000 1-13 tablet by ity of mcg tablet 00:00: mouth [place] 00 daily. [facility] Branch vitamin 2022-0 Yes 1000ug Take 1 Univer s B-12 1,000 1-13 tablet by ity of mcg tablet 00:00: mouth [place] 00 daily. [facility] Branch vitamin 2022-0 Yes 1000ug Take 1 Univer s B-12 1,000 1-13 tablet by ity of mcg tablet 00:00: mouth 00 daily. Medical Branch vitamin 2022-0 2022- No 1000ug Take 1 Unive rs [...] Branch daily with meals. loperamide 2021-0 Yes [id number] 2mg Take 1 Univers 2 mg 1-12 [...] Branch daily with meals. loperamide 2022-0 Yes [id number] 2mg Take 1 Univers 2 mg 1-12 [...] Branch daily with meals. loperamide 2022-0 Yes [id number] 2mg Take 1 Univers 2 mg 1-12 [...] Branch daily with meals. loperamide 2022-0 Yes [id number] 2mg Take 1 Univers 2 mg 1-12 [...] Branch daily with meals. loperamide 2022-0 Yes [id number] 2mg Take 1 Univers 2 mg 1-12 [...] Branch daily with meals. loperamide 2022-0 Yes [id number] 2mg Take 1 Univers 2 mg 1-12 [...] Branch daily with meals. loperamide 2022-0 Yes [id number] 2mg Take 1 Univers 2 mg 1-12 [...] Branch daily with meals. loperamide 2022-0 Yes [id number] 2mg Take 1 Univers 2 mg 1-12 capsule by ity of capsule 00:00: mouth (two) Medical times Branch daily. psyllium 2022-0 Yes 1{packe Take 1 Univ ers 3.4 gram 1-12 t} Packet by ity of packet 00:00: mouth [place] (two) Medical times Branch daily. acetaminoph 2022-0 Yes 650mg Take 2 Uni vers en 325 mg 1-12 tablets by ity of tablet 00:00: mouth [place] 00 every 6 Medical (six) Branch hours as needed for Pain (scale 1-3). ibuprofen 2022-0 Yes 600mg Take 1 Unive rs 600 mg 1-12 tablet by ity of tablet 00:00: mouth 3 [place] 00 (three) Medical times Branch daily with meals. loperamide 2022-0 Yes [id number] 2mg Take 1 Univers 2 mg 1-12 capsule by ity of capsule 00:00: mouth [place] (two) Medical times Branch daily. psyllium 2022-0 Yes 1{packe Take 1 Univ ers 3.4 gram 1-12 t} Packet by ity of packet 00:00: mouth [place] (two) Medical times Branch daily. acetaminoph 2022-0 [...] ity of tablet 00:00: 00:00 mouth 3 [place] 00 :00 (three) Medical times Branch daily with meals. loperamide 2022-0 2022- No [id number] 2mg Take 1 Univers 2 mg 1-12 08-10 capsule by ity of capsule 00:00: 00:00 mouth 2 [place] 00 :00 (two) Medical times Branch daily. psyllium 2022-0 2022- No 1{packe Take 1 Uni vers 3.4 gram 1-12 08-10 t} Packet by ity o f packet 00:00: 00:00 mouth 2 [place] 00 :00 (two) Medical times Branch daily. vitamin 2022-0 Yes 1000ug 1,000 mcg, Un piyush B-12 1-11 Oral, ity of (CYANOCOBAL 20:00: DAILY, [place] 00 First dose Medical tablet on [facility] 1,000 mcg 09/03/21 at 1400, Until Discontinu ed, Routine vitamin Yes 1000ug 1,000 mcg, Un piyush B-12 09-03 Oral, ity of (CYANOCOBAL 20:00: DAILY, [place] 00 First dose Medical tablet on [facility] 1,000 mcg 09/03/21 at 1400, Until Discontinu [...] Q6HPRN, [place] mg 55 Starting Medical on [facility] 09/03/21 at 0828, Until Discontinu ed, Routine, Pain (scale 4-6) traMADoL Yes 50mg 50 mg, Univers (ULTRAM) 09-03 Oral, ity of tablet 50 14:28: Q6HPRN, [place] mg 55 Starting Medical on [facility] 09/03/21 at 0828, Until Discontinu ed, Routine, [...] 0345, Until Thu09/03/21 at 0826, Routine sulfur 2021-2021- No [id number] 5mL 5 mL, Unive rs hexafluorid 09-02 Intravenou i ty of e microsphr 21:30: 21:30 s, ONCE, 1 [place] (LUMASON) 00 :00 dose, On Medica l injection 5 Mon Branch mL 09/02/21 at 1530, Routine
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 : CAMILA GREGORY NaCl [...] Until 09/01/21 at 1007, Routine NaCl 0.9% 2021- No 1000mL at 999 Uni vers (NS) bolus 08-31 01-08 mL/hr, ity of infusion 15:15: 15:11 1,000 mL, [place]avi as 1,000 mL 00 :00 IV Medical Infusion, Branch ONCE, 1 dose, On 08/31/21 at 0915, STAT pantoprazol 2021-0 Yes 40mg 40 mg, Univ ers e 08-31 Oral, ity of (PROTONIX) 15:00: DAILY, [place] EC tablet 00 First dose Medi mariusz 40 mg on Sat Branch 08/31/21 at 0900, Until Discontinu ed, Routine pantoprazol 2021-0 Yes 40mg 40 mg, Univ ers e 1-08 Oral, ity of (PROTONIX) 15:00: DAILY, [place] EC tablet 00 First dose Medi mariusz 40 mg on [facility] Branch 08/31/21 at 0900, Until Discontinu ed, [...] 14:00: First dose [place] SINGLES) 00 on [facility] Medical 3.4 gram 08/31/21 at Branch packet 1 0800, Packet Until Discontinu ed, Routine heparin 2022-0 Yes 5000U 5,000 Univers (porcine) 1-08 Units, ity of injection 14:00: Subcutaneo [place] 5,000 Units 00 us, Q12H, Med ical First dose Branch on [facility] 08/31/21 at 0800, Until Discontinu ed, Routine [...] 14:00: First dose [place] SINGLES) 00 on [facility] Medical 3.4 gram 08/31/21 at Branch packet [...] 08 Oral, ity of (TYLENOL) 06:03: Q6HPRN, [place] tablet 650 36 Starting Medic al mg on Sat Branch 08/31/21 at 0003, Until Discontinu ed, Routine, Pain (scale 1-3) acetaminoph 2021-0 Yes 650mg 650 mg, Un piyush en -08 Oral, ity of (TYLENOL) 06:03: Q6HPRN, [place] tablet 650 36 Starting Medic al mg on Sat Branch 08/31/21 at 0003, Until Discontinu ed, Routine, Pain (scale 1-3) NaCl 0.9% 2021- No 1000mL at 999 Uni vers (NS) bolus 08-3108 mL/hr, ity of infusion 01:45: 02:43 1,000 mL, [place] as 1,000 mL 00 :00 IV Medical Infusion, Branch ONCE, 1 dose, On 08/30/21 at 1945, STAT albuterol 2021-0 2021- No 8{puff} 8 Puff, U nivers (VENTOLIN) 08-30 Inhalation it y of inhaler 8 01:00: 00:20 , ONCE, 1 [place] Puff 00 :00 dose, On Medical [facility] 08/29/21 Branch at 1900, JOÃO acetaminoph 2021- No 1000mg 1,000 mg, Univers en 08-30 Oral, ity of (TYLENOL) 00:30: 00:20 ONCE, 1 [place] tablet 00 :00 dose, On Medical 1,000 mg [facility] 08/29/21 Branc h at 1830, Routine lidocaine 2021-2021- No 10mL 10 mL, Unive rs 2% viscous 08-30 Oral, ity of (LIDOCAINE 00:30: 00:20 ONCE, 1 [place] VISCOUS) 2 00 :00 dose, On Medic al % solution [facility] 08/29/21 Bra nch 10 mL at 1830, JOÃO benzonatate 2021- No 100mg 100 mg, U nivers (TESSALON 1-07 01-07 Oral, ity of PERLES) 00:30: 00:22 ONCE, 1 [place] capsule 100 00 :00 dose, On Medi mariusz mg [place] 08/29/21 Branch at 1830, Routine No known No Univers medications 1-06 ity of 19:35: [place] 26 [facility] Branch NaCl 0.9% 2020-08 Yes 10mL 10 mL, Univer s (NS) 2-12 Slow IV ity of injection 19:13: Push, PRN, [place] 10 mL 37 Starting Medical on [place] Branch 08/04/21 at 1313, Until Discontinu ed, Routine, line maintenanc e lidocaine 2020-08 Yes 5mL 5 mL, Univers 1% (PF) 2-12 Subcutaneo ity of (XYLOCAINE) 19:13: us, PRN, [place] injection 5 37 Starting Medi mariusz mL on [place] Branch 08/04/21 at 1313, Until Discontinu ed, Routine, Local anesthesia dextrose 5% 2020-08 Yes IV Univer s and 0.45% 2-12 Infusion, ity o f NaCl with 16:00: CONTINUOUS [place] KCl 40 mEq 00 , Starting Med ical 1,000 mL IV on [place] Branch Solution 08/04/21 at 1000, Until Discontinu ed, 1,000 mL, at 125 mL/hr NaCl 0.9% 2020-08- No 1000mL at 999 Uni vers (NS) bolus 2-12 12-12 mL/hr, ity of infusion 15:53: 17:17 1,000 mL, [place] 1,000 mL 00 :00 IV Medical Piggyback, [place] ONCE, 1 dose, On [place] 08/04/21 at 1000, JOÃO D5W 0.45% 2020-08- No IV Univers NaCl + KCL 2-10 12-12 Infusion, ity of 20 mEq RTU 15:00: 15:56 CONTINUOUS [place] 20 mEq/L 00 :45 , Starting Medic al 1,000 mL IV on [facility] Branch Solution 08/02/21 at 0900, Until [place] 08/04/21 at 0956, 1,000 mL, at 100 [...] 2020-08- No 1{tbl} 1 tablet, Univers te-atropine 10-01- Oral, BID, i ty of (LOMOTIL) 15:30: 13:19 First dose [place] 2.5-0.025 00 :28 on Wed Medical mg tablet 1 07/31/21 at Br anch tablet 0930, Until Discontinu ed, Routine iopamidol 2020-08- No [id number] 100mL 100 mL, Univers (ISOVUE 10-01 Intravenou ity o f 370-500 mL) 05:14: 05:14 s, ONCE, 1 [place] injection 00 :00 dose, On Medica l 100 mL [facility] 07/30/21 at 2315, Routine morpHINE 2020-08- No 2mg 2 mg, Slow Un piyush injection 2 09-30 IV Push, ity of mg 17:00: 17:10 ONCE, 1 [place] 00 :00 dose, On Medical [facility] 07/30/21 at 1115, Routine enoxaparin 2020-08 Yes 40mg 40 mg, Unive rs (LOVENOX) 09-30 Subcutaneo ity of injection 15:00: us, DAILY, [place] 40 mg 00 First dose Medical (after Branch last modificati on) on [facility] 07/30/21 at 0900, Until Discontinu ed, Routine pantoprazol 2020-08- No 40mg 40 mg, Uni vers e 09-30 Oral, ity of (PROTONIX) 15:00: 13:40 DAILY, [place] EC tablet 00 :20 First dose Medi mariusz 40 mg on [facility] 07/30/21 at 0900, Until Discontinu ed, Routine loperamide 2020-08- No 4mg 4 mg, Unive rs (IMODIUM 09-30 Oral, TID, ity of A-D) 14:00: 13:19 First dose [place] capsule 4 00 :28 on [facility] Medical mg 07/30/21 at Branch 0800, Until Discontinu ed, Routine psyllium 2020-08- No 1{packe 1 Packet, Univers (METAMUCIL 09-30 t} Oral, TID, it y of FIBER 14:00: 13:19 First dose [place] SINGLES) 00 :28 on [facility] Medical 3.4 gram 07/30/21 at [facility] h packet 1 0800, Packet Until Discontinu ed, Routine lactated 2020-08- No 1000mL at 75 Unive rs ringers IV 2- 12-10 mL/hr, ity of infusion 07:30: 13:59 [...] Yes 650mg 650 mg, Un piyush en 207 Oral, ity of (TYLENOL) 06:10: Q6HPRN, [place] tablet 650 40 Starting Medic al mg on Thu [place] 07/30/21 at 0010, Until Discontinu ed, Routine, Pain (scale 1-3) morpHINE 2020-08- No 4mg 4 mg, Slow Un piyush injection 4 2-07 12-07 IV Push, ity of mg 03:30: 02:55 ONCE, 1 [place] 00 :00 dose, On Medical Mon [place] 07/29/21 at 2130, STAT psyllium 2020-08 Yes [id number] 1{packe Take 1 Univers 3.4 gram 2-03 t} Packet by ity of packet 00:00: mouth 3 [place] 00 (three) Medical times Branch daily. loperamide 2020-08 Yes [id number] 4mg Take 2 Univers 2 mg 2-03 capsules ity of capsule 00:00: by mouth 3 [place] 00 (three) Medical times Branch daily. pantoprazol 2020-08 Yes [id number] 40mg Take 1 Univers e 40 mg EC 2-03 tablet by ity of tablet 00:00: mouth [place] 00 daily. Medical Branch psyllium 2020-08 Yes [id number] 1{packe Take 1 Univers 3.4 gram 2-03 t} Packet by ity of packet 00:00: mouth 3 [place] 00 (three) Medical times Branch daily. loperamide 2020-08 Yes [id number] 4mg Take 2 Univers 2 mg 2-03 capsules ity of capsule 00:00: by mouth 3 [place] 00 (three) Medical times Branch daily. pantoprazol 2020-08 Yes [id number] 40mg Take 1 Univers e 40 mg EC 2-03 tablet by ity of tablet 00:00: mouth [place] 00 daily. Medical Branch psyllium 2020-08- No [id number] 1{packe Take 1 Univers 3.4 gram 2-03 12-13 t} Packet by ity o f packet 00:00: 00:00 mouth 3 [place] 00 :00 (three) Medical times Branch daily. loperamide 2020-08- No [id number] 4mg Take 2 Univers 2 mg 2-03 12-13 capsules ity of capsule 00:00: 00:00 by mouth 3 [place] 00 :00 (three) Medical times Branch daily. pantoprazol 2020-08- No [id number] 40mg Take 1 Univers e 40 mg EC 2-03 12-13 tablet by ity of tablet 00:00: 00:00 mouth [place] 00 :00 daily. Medical Branch psyllium 2020-08- No [id number] 1{packe Take 1 Univers 3.4 gram 2-03 12-03 t} Packet by ity o f packet 00:00: 00:00 mouth 3 [place] 00 :00 (three) Medical times Branch daily for 90 days. loperamide 2020-08- No [id number] 4mg Take 2 Univers 2 mg 2-03 12-03 capsules ity of capsule 00:00: 00:00 by mouth 3 [place] 00 :00 (three) Medical times Branch daily for 90 days. pantoprazol 2020-08- No [id number] 40mg Take 1 Univers e 40 mg EC 207-26 tablet by ity of tablet 00:00: 00:00 mouth [place] 00 :00 daily for Medical 90 days. Branch psyllium 2020-08- No [id number] 1{packe Take 1 Univers 3.4 gram 2-07-26 t} Packet by ity o f packet 00:00: 00:00 mouth 3 [place] 00 :00 (three) Medical times Branch daily. pantoprazol 2020-08- No [id number] 40mg Take 1 Univers e 40 mg EC 207-26 tablet by ity of tablet 00:00: 00:00 mouth [place] 00 :00 daily. Medical Branch loperamide 2020-08- No [id number] 4mg Take 2 Univers 2 mg 2-11 02- capsules ity of capsule 00:00: 00:00 by mouth 3 [place] 00 :00 (three) Medical times Branch daily. psyllium 2020-08- No [id number] 1{packe Take 1 Univers 3.4 gram 2-07-26 t} Packet by ity o f packet 00:00: 00:00 mouth 3 [place] 00 :00 (three) Medical times Branch daily. loperamide 2020-08- No [id number] 4mg Take 2 Univers 2 mg 2-11 02- capsules ity of capsule 00:00: 00:00 by mouth 3 [place] 00 :00 (three) Medical times Branch daily. pantoprazol 2020-08- No [id number] 40mg Take 1 Univers e 40 mg EC 207-26 tablet by ity of tablet 00:00: 00:00 mouth [place] 00 :00 daily. Medical Branch pantoprazol 2020-08 Yes 40mg 40 mg, Univ ers e 2-02 Oral, ity of (PROTONIX) 15:00: DAILY, [place] EC tablet 00 First dose Medi mariusz 40 mg on [place] Branch 07/25/21 at 0900, Until Discontinu ed, Routine psyllium 2020-08 Yes 1{packe 1 Packet, U nivers (METAMUCIL 2-02 t} Oral, TID, ity of FIBER 14:00: First dose [place] SINGLES) 00 (after Medical 3.4 gram last Branch packet 1 modificati Packet on) on Thu07/25/21 at 0800, Until Discontinu ed, Routine diphenoxyla 2020-08 No 1{tbl} 1 tablet, Univers te-atropine 09-25 12-03 Oral, BID, i ty of (LOMOTIL) 14:00: [...] Until Discontinu ed, Routine loperamide 2020-08 No 2mg 2 mg, Unive rs (IMODIUM [...] Yes 650mg 650 mg, Un piyush en 1-30 Oral, ity of (TYLENOL) 07:31: Q6HPRN, [place] tablet 650 37 Starting Medic al mg on [facility] Branch 07/23/21 at 0131, Until Discontinu ed, Routine, Pain (scale 1-3) NaCl 0.9% 2020-08 1000mL at 999 Uni vers (NS) bolus 1-30 11-30 mL/hr, ity of infusion 06:46: 07:00 1,000 mL, [place] as 1,000 mL 00 :00 IV Medical Piggyback, [place] ONCE, 1 dose, On Thu07/23/21 at 0100, STAT heparin 2020-08 Yes 5000U 5,000 Univers (porcine) 0-09 Units, ity of injection 22:00: Subcut[place]o [place] 5,000 Units 00 us, Q8H, Medi mariusz First dose Branch on [facility] 06/01/21 at 1700, Until Discontinu ed, Routine pantoprazol 2020-08 Yes 40mg 40 mg, Univ ers e 0-09 Oral, BID, ity of (PROTONIX) 14:45: First dose [place] EC tablet 00 on [facility] Medical 40 mg 06/01/21 at Branch 0945, Until Discontinu ed, Routine psyllium 2020-08 Yes 1{packe 1 Packet, U nivers (METAMUCIL 0-09 t} Oral, ity of FIBER 14:45: DAILY, [place] SINGLES) 00 First dose Medic al 3.4 gram on [facility] Branch packet 1 06/01/21 at Packet 0945, Until Discontinu ed, Routine traMADoL 2020-08 Yes 50mg 50 mg, Univers (ULTRAM) 0-09 Oral, ity of tablet 50 14:39: Q6HPRN, [place] mg 34 Starting Medical on [facility] Branch 06/01/21 at 0939, Until Discontinu ed, Routine, Pain (scale 4-6) HYDROcodone 2020-08 Yes 1{tbl} 1 tablet, Univers -acetaminop 0-09 Oral, ity of hen (NORCO 14:39: Q6HPRN, [place] 5) 5-325 mg 16 Starting [facility] mariusz tablet 1 on Sat Branch tablet 06/01/21 at 0939, Until Discontinu ed, Routine, Pain (scale 7-10) ondansetron 2020-08 Yes 4mg 4 mg, Slow Univers (ZOFRAN 0-09 IV Push, ity of (PF)) 14:38: Q6HPRN, [place] injection 4 58 Starting Medi mariusz mg on [facility] Branch 06/01/21 at 0938, Until Discontinu ed, Routine, Nausea and Vomiting (N/V) acetaminoph 2020-08 Yes 650mg 650 mg, Un piyush en 0-09 Oral, ity of (TYLENOL) 14:36: Q6HPRN, [place] tablet 650 07 Starting Medic al mg on [facility] Branch 06/01/21 at 0936, Until Discontinu ed, [...] Thu05/31/21 at 2045, STAT iopamidol 2020-08- No [id number] 100mL 100 mL, Univers (ISOVUE 0-09 10-09 [...] Fri Branch 05/31/21 at 1830, STAT ondansetron 2020-08 No 8mg 8 mg, Slow Univers (ZOFRAN [...] On Thu05/31/21 at 1830, STAT psyllium Yes [id number] 1{packe Take 1 Univers 3.4 gram 9-29 t} Packet by ity of packet 00:00: mouth [place] 00 daily. Medical Branch psyllium Yes [id number] 1{packe Take 1 [facility] 3.4 gram 9-29 t} Packet by ity of packet 00:00: mouth [place] 00 daily. Medical Branch psyllium Yes [id number] 1{packe Take 1 [facility] 3.4 gram 9-29 t} Packet by ity of packet 00:00: mouth [place] 00 daily. Medical Branch psyllium Yes [id number] 1{packe Take 1 [facility] 3.4 gram 9-29 t} Packet by ity of packet 00:00: mouth [place] 00 daily. Medical Branch psyllium Yes [id number] 1{packe Take 1 [facility] 3.4 gram 9-29 t} Packet by ity of packet 00:00: mouth [place] 00 daily. Medical Branch psyllium 2020- No [id number] 1{packe Take 1 Univers 3.4 gram 9-29 [...] IV Push, ity of (PF)) 00:15: Q6HPRN, [place] injection 4 13 Starting Medi mariusz mg on Thu Branch 05/20/21 at 1915, Until Discontinu ed, Routine, Nausea and Vomiting (N/V) HYDROcodone 0 Yes 1{tbl} 1 tablet, Univers -acetaminop 05-21 Oral, ity of hen (NORCO) 00:15: Q6HPRN, [place] 10-325 mg 10 Starting Medica l tablet 1 on Thu tablet 05/20/21 at 1915, Until Discontinu ed, Routine, Pain (scale 7-10) traMADoL 2020- No 50mg 50 mg, Univer s (ULTRAM) 05-21 Oral, ity of tablet 50 00:15: 00:14 Q8HPRN, [place] mg 07 :07 Starting Medical on Thu05/20/21 at 1915, Until Thu05/22/21 at 1914, Routine, Pain (scale 4-6) acetaminoph Yes 650mg 650 mg, Un piyush en 05-21 Oral, ity of (TYLENOL) 00:15: Q6HPRN, [place] tablet 650 01 Starting Medic al mg on Thu Branch 05/20/21 at 1915, Until Discontinu ed, Routine, Pain (scale 1-3) D5W 0.45% Yes IV Univers NaCl 05-20 Infusion, ity of (1/2NS) 1 L 23:30: at 125 [place] + KCL 20 00 mL/hr, Medical mEq CONTINUOUS Branch , Starting on Thu05/20/21 at 1830, Until Discontinu ed, Routine psyllium 0 Yes 1{packe 1 Packet, U nivers (METAMUCIL 05-20 t} Oral, ity of FIBER 22:15: DAILY, [place] SINGLES) 00 First dose Medic al 3.4 gram (after Branch packet 1 last Packet modificati on) on Thu05/20/21 at 1715, Until Discontinu ed, Routine lactated 2020- No 2000mL at 999 Univ ers ringers IV 05-2027 mL/hr, ity of infusion 22:02: 22:36 2,000 mL, [place] 2,000 mL 00 :00 Intravenou Medic al s, ONCE, 1 Branch dose, On [facility] 05/20/21 at 1715, JOÃO ondansetron 2020- No 4mg 4 mg, Slow Univers (ZOFRAN 05-20 IV Push, ity of (PF)) 21:00: 20:15 ONCE, 1 [place] injection 4 00 :00 dose, On Medi mariusz mg [facility] 05/20/21 at 1600, JOÃO morpHINE 2020- No 4mg 4 mg, Slow Un piyush injection 4 05-20 IV Push, ity of mg 21:00: 20:15 ONCE, 1 [place] 00 :00 dose, On Medical [facility] 05/20/21 at 1600, STAT NaCl 0.9% No 500mL at 999 Univ ers (NS) bolus 05-20 mL/hr, 500 it y of infusion 21:00: 21:00 mL, IV [place] 500 mL 00 :00 Piggyback, Medical ONCE, 1 Branch dose, On [facility] 05/20/21 at 1600, STAT pantoprazol Yes 40mg 40 mg, Univ ers e 9-17 Oral, BID, ity of (PROTONIX) 01:00: First dose [place] EC tablet 00 on [facility] Medical 40 mg 05/09/21 at [place] 1999, Until Discontinu ed, Routine pantoprazol Yes 40mg 40 mg, Univ ers e 9-17 Oral, BID, ity of (PROTONIX) 01:00: First dose [place] EC tablet 00 on [facility] Medical 40 mg 05/09/21 at [place] 1999, Until Discontinu ed, Routine pantoprazol 2020- No [id number] 40mg Take 1 Univers e 40 mg EC 9-16 11-16 tablet by ity of tablet 00:00: 05:59 mouth 2 [place] 00 :00 (two) Medical times [place] daily pantoprazol 2020- No [id number] 40mg Take 1 [facility] e 40 mg EC 9-16 11-16 tablet by ity of tablet 00:00: 05:59 mouth 2 [place] 00 :00 (two) Medical times [place] daily pantoprazol 2020- No [id number] 40mg Take 1 [facility] e 40 mg EC 9-16 11-16 tablet by ity of tablet 00:00: 05:59 mouth 2 [place] 00 :00 (two) Medical times Branch daily pantoprazol 2020- No [id number] 40mg Take 1 [facility] e 40 mg EC 9-16 11-16 tablet by ity of tablet 00:00: 05:59 mouth 2 [place] 00 :00 (two) Medical times Branch daily pantoprazol 2020- No [id number] 40mg Take 1 [facility] e 40 mg EC 9-16 11-16 tablet by ity of tablet 00:00: 05:59 mouth 2 [place] 00 :00 (two) Medical times Branch daily pantoprazol 2020- No [id number] 40mg Take 1 [facility] e 40 mg EC 9-16 11-16 tablet by ity of tablet 00:00: 05:59 mouth 2 [place] 00 :00 (two) Medical times Branch daily pantoprazol 2020- No [id number] 40mg Take 1 [facility] e 40 mg EC 9-16 11-16 tablet by ity of tablet 00:00: 05:59 mouth 2 [place] 00 :00 (two) Medical times Branch daily enoxaparin Yes 40mg 40 mg, Unive rs (LOVENOX) 915 Subcutaneo ity of injection 16:15: us, Q24H, [place] 40 mg 00 First dose Medical on Thu Branch 05/08/21 at 1115, Until Discontinu ed, Routine enoxaparin Yes 40mg 40 mg, Unive rs (LOVENOX) 05-08 Subcutaneo ity of injection 16:15: us, Q24H, [...] 1000mL at 70 Univ ers infusion 05-08 mL/hr, IV ity o f 1,000 mL [...] Thu05/07/21 at 2330, Until Discontinu ed ondansetron 2020-0 Yes 4mg 4 mg, Slow Univers (ZOFRAN 9-15 IV Push, ity of (PF)) 04:16: Q6HPRN, [place] injection 4 34 Starting Medi mariusz mg on Thu Branch 05/07/21 at 2316, Until Discontinu ed, Routine, Nausea and Vomiting (N/V) ondansetron 2020-0 Yes 4mg 4 mg, Slow [facility] (ZOFRAN 9-15 IV Push, ity of (PF)) 04:16: Q6HPRN, [place] injection 4 34 Starting Medi mariusz mg on Thu Branch 05/07/21 at 2316, Until Discontinu ed, Routine, Nausea and Vomiting (N/V) morpHINE 2020-0 2020- No 4mg 4 mg, Slow Un [facility] injection 4 05-08 IV Push, ity of mg 04:16: [facility] [place] [facility]32 Starting Medical on Thu Branch 05/07/21 at 2316, Until Thu05/08/21 at 2315, Routine, Pain (scale 7-10) morpHINE 2020-0 2020- No 4mg 4 mg, Slow Un [place] injection 4 05-08 IV Push, ity of mg 04:16: 04:15 [facility] [place] 32 :32 Starting Medical on [facility] 05/07/21 at 2316, Until 05/08/21 at 2315, Routine, Pain (scale 7-10) diazePAM 0 2020- No 5mg 5 mg, Slow Un [place] (VALIUM) 05-08 IV Push, ity of injection 5 02:45: 02:49 ONCE, 1 [place] mg 00 :00 dose, On [facility] 05/07/21 at 2145, STAT diazePAM 2020- No 5mg 5 mg, Slow Un [place] (VALIUM) 05-08 IV Push, ity of injection 5 02:45: 02:49 ONCE, 1 [place] mg 00 :00 dose, On [facility] 05/07/21 at 214, STAT iopamidol 2020- No [id number] 100mL 100 mL, Univers (ISOVUE 05-08 Intravenou ity o f 370-500 mL) 02:15: 01:08 s, ONCE, 1 [place] injection 00 :00 dose, On Medica l 100 mL [facility] 05/07/21 at 211, Routine iopamidol 2020- No [id number] 100mL 100 mL, Univers (ISOVUE 05-08 Intravenou ity o f 370-500 mL) 02:15: 01:08 s, ONCE, 1 [place] injection 00 :00 dose, On Medica l 100 mL [facility] 05/07/21 at 2115, Routine morpHINE 2020- No 4mg 4 mg, Slow Un [place] injection 4 05-08 IV Push, ity of mg 01:45: 00:48 ONCE, 1 [place] 00 :00 dose, On [facility] 05/07/21 at 2044, JOÃO ondansetron 2020-2020- No 4mg 4 mg, Slow Univers (ZOFRAN 05-08 IV Push, ity of (PF)) 01:45: 00:47 ONCE, 1 [place] injection 4 00 :00 dose, On Medi mariusz mg [facility] 05/07/21 at 2044, JOÃO morpHINE 2020-0 2020- No 4mg 4 mg, Slow Un [place] injection 4 05-08 IV Push, ity of mg 01:45: 00:48 ONCE, 1 [place] 00 :00 dose, On Medical Tue Branch 05/07/21 at 2044, JOÃO ondansetron 2020- No 4mg 4 mg, Slow Univers (ZOFRAN 05-08 IV Push, ity of (PF)) 01:45: 00:47 ONCE, 1 [place] injection 4 00 :00 dose, On Medi mariusz mg Tue Branch 05/07/21 at 2044, JOÃO flu vaccine 2020- No .5mL 0.5 mL, Un piyush 6 months 08-24 Intramuscu ity of and up (PF) 17:30: 18:09 lar, ONCE, [place] (FLUZONE 00 :00 1 dose, Medical QUAD 08/24/20 Branch at 1130, (PF)) Routine syringe 0.5 mL sulfamethox 2020- No 1{tbl} 1 tablet, [facility] azole-trime 08-24 Oral, BID, i ty of thoprim 02:00: 13:59 7 doses, [place] (BACTRIM 00 :00 First dose Medic al DS) 800-160 on [place] Branch mg per 08/23/20 tablet 1 at 1999, tablet Last dose on 08/26/20 at 1999, JOÃO
Re ason for Anti-Infec tive: Empiric Therapy for Suspected Infection< br>Empiric Therapy Site: Skin / Soft tissue
Duration of therapy: 72 hours sulfamethox 2020- No [id number] 1{tbl} Take 1 [facility] azole-trime 08-24 tablet by it y [...] 14:00: First dose [place] SINGLES) 00 on [facility] Medical 3.4 gram 08/23/20 Branch packet [...] 2019-08 Yes 6mg 6 mg, Univers (MELATIN) 2- Oral, PRN ity o f tablet 6 mg 03:12: - SEE [place] 40 [facility] Medical NS, 1 Branch dose, Starting [...] IV Push, ity of (PF)) 03:12: Q6HPRN, [place] injection 4 08 Starting Medi mariusz mg Wed Branch 08/22/20 at 2112, Until Discontinu ed, Routine, Nausea and Vomiting (N/V) acetaminoph 2019-08 Yes 650mg 650 mg, Un piyush en 2-31 Oral, ity of (TYLENOL) 03:11: Q6HPRN, [place] tablet 650 56 Starting Medic al mg Wed Branch 08/22/20 at 2111, Until Discontinu ed, Routine, Pain (scale 1-3) NaCl 0.9% 2019-08- No 1000mL at 999 Uni vers (NS) bolus 2-30 12-31 mL/hr, ity of infusion 21:45: 00:21 1,000 mL, [place] 1,000 mL 00 :00 IV Medical Infusion, Branch ONCE, 1 dose, 08/22/20 at 1545, JOÃO iohexol 2019-08- No 100mL 100 mL, Unive rs (OMNIPAQUE 09-09 Intravenou it y of 350 00:30: 00:14 s, ONCE, 1 [place] BULK-100 00 :00 dose, Mon Medica l mL) 07/09/20 Branch injection at 1830, 100 mL Routine cefTRIAXone 2019-08- No 1000mg 1,000 mg, Univers (ROCEPHIN) 09-08 IV ity of 1,000 mg in 23:30: 00:58 Piggyback, [place] NaCl 0.9% 00 :00 ONCE, 1 Medical (NS) 50 mL dose, [facility] Bran ch MINI-BAG 07/09/20 at 1730, 50 [...] 07/09/20 at 1645, JOÃO amoxicillin 2019-08 Yes [id number] 1{tbl} Take 1 Univers -clavulanat 1-16 tablet by ity of e 875-125 00:00: mouth [place] mg per 00 every 12 Medical tablet (twelve) Branch hours. amoxicillin 2019-08- No [id number] 1{tbl} Take 1 Univers -clavulanat 1-16 08-24 tablet by it y of e 875-125 00:00: 00:00 mouth [place] mg per 00 :00 every 12 Medical tablet (twelve) Branch hours. iohexol 2019-08 120mL 120 mL, Unive rs (OMNIPAQUE 0-13 10-13 Intravenou it y of 350 13:15: 12:53 s, ONCE, 1 [place] BULK-150 00 :00 dose, Tue Medica l mL) 06/05/20 Branch injection at 0815, 120 mL Routine NaCl 0.9% 2019-08 1000mL at 999 Uni vers (NS) bolus 0-13 10-13 mL/hr, ity of infusion 12:00: 13:00 1,000 mL, [place] 1,000 mL 00 :00 IV Medical Infusion, Branch ONCE, 1 dose, 06/05/20 at 0700, JOÃO levoFLOXaci 2019-08 750mg 750 mg, U nivers n 0-08 10-08 Oral, Q24H ity of (LEVAQUIN) 04:30: 04:35 ABX, 1 [place] tablet 750 00 :00 dose, Medical mg First dose Branch (after last modificati on) on Thu05/30/20 at 2330, JOÃO
Re ason for Anti-Infec tive: Documented Infection< br>Documen dain Infection Site: Abdominal& lt;br>Dura tion of Therapy: 7 days ibuprofen 2019-08 Yes [id number] 800mg Take 1 U nivers 800 mg 0-08 tablet by ity of tablet 00:00: mouth [place] 00 every 6 Medical (six) Branch hours as needed for Pain (scale 4-6). loperamide 2019-08 Yes [id number] 4mg Take 2 U nivers 2 mg 0-08 capsules ity of capsule 00:00: [place] mouth 4 [place] 00 (four) Medical times Branch daily. diphenoxyla 2019-08 Yes [id number] 1{tbl} Take 1 Univers te-atropine 0-08 tablet by ity of 2.5-0.025 00:00: mouth [place] mg tablet 00 every 8 Medical (eight) Branch hours. psyllium 2019-08 Yes [id number] 3{packe Take 3 Univers 3.4 gram 0-08 t} Packets by ity o f packet 00:00: mouth 3 [place] 00 (three) Medical times Branch daily. psyllium 2020-1 Yes [id number] 3{packe Take 3 Univers 3.4 gram 0-08 t} Packets by ity o f packet 00:00: mouth 3 [place] 00 (three) Medical times Branch daily. diphenoxyla 2020-1 Yes [id number] 1{tbl} Take 1 [facility] te-atropine 0-08 tablet by ity of 2.5-0.025 00:00: mouth [place] mg tablet 00 every 8 Medical (eight) Branch hours. loperamide 2020- Yes [id number] 4mg Take 2 U nivers 2 mg 0-08 capsules ity of capsule 00:00: by mouth 4 [place] 00 (four) Medical times Branch daily. ibuprofen 2020- Yes [id number] 800mg Take 1 U nivers 800 mg 0-08 tablet by ity of tablet 00:00: mouth [place] 00 every 6 Medical (six) Branch hours as needed for Pain (scale 4-6). psyllium 2020-1 Yes [id number] 3{packe Take 3 Univers 3.4 gram 0-08 t} Packets by ity o f packet 00:00: mouth 3 (three) Medical times Branch daily. diphenoxyla 2020- Yes [id number] 1{tbl} Take 1 [facility] te-atropine 0-08 tablet by ity of 2.5-0.025 00:00: mouth [place] mg tablet 00 every 8 Medical (eight) Branch hours. loperamide 2020- Yes [id number] 4mg Take 2 U nivers 2 mg 0-08 capsules ity of capsule 00:00: by mouth 4 [place] 00 (four) Medical times Branch daily. ibuprofen 2020-1 Yes [id number] 800mg Take 1 U nivers 800 mg 0-08 tablet by ity of tablet 00:00: mouth [place] 00 every 6 Medical (six) Branch hours as needed for Pain (scale 4-6). psyllium 2020-1 Yes [id number] 3{packe Take 3 Univers 3.4 gram 0-08 t} Packets by ity o f packet 00:00: mouth 3 [place] 00 (three) Medical times Branch daily. diphenoxyla 2020-1 Yes [id number] 1{tbl} Take 1 Univers te-atropine 0-08 tablet by ity of 2.5-0.025 00:00: mouth [place] mg tablet 00 every 8 Medical (eight) Branch hours. loperamide 2020-1 Yes [id number] 4mg Take 2 U nivers 2 mg 0-08 capsules ity of capsule 00:00: by mouth 4 [place] 00 (four) Medical times Branch daily. ibuprofen 2020-1 Yes [id number] 800mg Take 1 U nivers 800 mg 0-08 tablet by ity of tablet 00:00: mouth [place] 00 every 6 Medical (six) Branch hours as needed for Pain (scale 4-6). psyllium 2020-1 Yes [id number] 3{packe Take 3 Univers 3.4 gram 0-08 t} Packets by ity o f packet 00:00: mouth 3 [place] 00 (three) Medical times Branch daily. diphenoxyla 2020-1 Yes [id number] 1{tbl} Take 1 Univers te-atropine 0-08 tablet by ity of 2.5-0.025 00:00: mouth [place] mg tablet 00 every 8 Medical (eight) Branch hours. loperamide 2020-1 Yes [id number] 4mg Take 2 U nivers 2 mg 0-08 capsules ity of capsule 00:00: by mouth 4 [place] 00 (four) Medical times Branch daily. ibuprofen 2020-1 Yes [id number] 800mg Take 1 U nivers 800 mg 0-08 tablet by ity of tablet 00:00: mouth [place] 00 every 6 Medical (six) Branch hours as needed for Pain (scale 4-6). psyllium 2020-1 Yes [id number] 3{packe Take 3 Univers 3.4 gram 0-08 t} Packets by ity o f packet 00:00: mouth 3 [place] 00 (three) Medical times Branch daily. diphenoxyla 2020-1 Yes [id number] 1{tbl} Take 1 Univers te-atropine 0-08 tablet by ity of 2.5-0.025 00:00: mouth [place] mg tablet 00 every 8 Medical (eight) Branch hours. loperamide 2020-1 Yes [id number] 4mg Take 2 U nivers 2 mg 0-08 capsules ity of capsule 00:00: by mouth 4 [place] 00 (four) Medical times Branch daily. ibuprofen 2020-1 Yes [id number] 800mg Take 1 U nivers 800 mg 0-08 tablet by ity of tablet 00:00: mouth [place] 00 every 6 Medical (six) Branch hours as needed for Pain (scale 4-6). psyllium 2020-1 Yes [id number] 3{packe Take 3 Univers 3.4 gram 0-08 t} Packets by ity o f packet 00:00: mouth 3 [place] 00 (three) Medical times Branch daily. diphenoxyla 2020-1 Yes [id number] 1{tbl} Take 1 Univers te-atropine 0-08 tablet by ity of 2.5-0.025 00:00: mouth [place] mg tablet 00 every 8 Medical (eight) Branch hours. loperamide 2020- Yes [id number] 4mg Take 2 U nivers 2 mg 0-08 capsules ity of capsule 00:00: by mouth 4 [place] 00 (four) Medical times Branch daily. ibuprofen 2020- Yes [id number] 800mg Take 1 U nivers 800 mg 0-08 tablet by ity of tablet 00:00: mouth [place] 00 every 6 Medical (six) Branch hours as needed for Pain (scale 4-6). psyllium 2020-1 Yes [id number] 3{packe Take 3 Univers 3.4 gram 0-08 t} Packets by ity o f packet 00:00: mouth 3 [place] 00 (three) Medical times Branch daily. diphenoxyla 2020-1 Yes [id number] 1{tbl} Take 1 Univers te-atropine 0-08 tablet by ity of 2.5-0.025 00:00: mouth [place] mg tablet 00 every 8 Medical (eight) Branch hours. loperamide 2020-1 Yes [id number] 4mg Take 2 U nivers 2 mg 0-08 capsules ity of capsule 00:00: by mouth 4 [place] 00 (four) Medical times Branch daily. ibuprofen 2020-1 Yes [id number] 800mg Take 1 U nivers 800 mg 0-08 tablet by ity of tablet 00:00: mouth [place] 00 every 6 Medical (six) Branch hours as needed for Pain (scale 4-6). psyllium 2020-1 Yes [id number] 3{packe Take 3 Univers 3.4 gram 0-08 t} Packets by ity o f packet 00:00: mouth 3 [place] 00 (three) Medical times Branch daily. diphenoxyla 2020-1 Yes [id number] 1{tbl} Take 1 Univers te-atropine 0-08 tablet by ity of 2.5-0.025 00:00: mouth [place] mg tablet 00 every 8 Medical (eight) Branch hours. loperamide 2020-1 Yes [id number] 4mg Take 2 U nivers 2 mg 0-08 capsules ity of capsule 00:00: by mouth 4 [place] 00 (four) Medical times Branch daily. ibuprofen 2020- Yes [id number] 800mg Take 1 U nivers 800 mg 0-08 tablet by ity of tablet 00:00: mouth [place] 00 every 6 Medical (six) Branch hours as needed for Pain (scale 4-6). psyllium 2020- Yes [id number] 3{packe Take 3 Univers 3.4 gram 0-08 t} Packets by ity o f packet 00:00: mouth 3 [place] 00 (three) Medical times Branch daily. diphenoxyla 2020- Yes [id number] 1{tbl} Take 1 Univers te-atropine 0-08 tablet by ity of 2.5-0.025 00:00: mouth [place] mg tablet 00 every 8 Medical (eight) Branch hours. loperamide 2020- Yes [id number] 4mg Take 2 U nivers 2 mg 0-08 capsules ity of capsule 00:00: by mouth 4 [place] 00 (four) Medical times Branch daily. ibuprofen 2019- Yes [id number] 800mg Take 1 U nivers 800 mg 0-08 tablet by ity of tablet 00:00: mouth [place] 00 every 6 Medical (six) Branch hours as needed for Pain (scale 4-6). psyllium 2020-1 Yes [id number] 3{packe Take 3 Univers 3.4 gram 0-08 t} Packets by ity o f packet 00:00: mouth 3 [place] 00 (three) Medical times Branch daily. diphenoxyla 2020- Yes [id number] 1{tbl} Take 1 Univers te-atropine 0-08 tablet by ity of 2.5-0.025 00:00: mouth [place] mg tablet 00 every 8 Medical (eight) Branch hours. loperamide 2020-1 Yes [id number] 4mg Take 2 U nivers 2 mg 0-08 capsules ity of capsule 00:00: by mouth 4 [place] 00 (four) Medical times Branch daily. ibuprofen 2020- Yes [id number] 800mg Take 1 U nivers 800 mg 0-08 tablet by ity of tablet 00:00: mouth [place] 00 every 6 Medical (six) Branch hours as needed for Pain (scale 4-6). psyllium 2020-1 Yes [id number] 3{packe Take 3 Univers 3.4 gram 0-08 t} Packets by ity o f packet 00:00: mouth 3 [place] 00 (three) Medical times Branch daily. diphenoxyla 2020- Yes [id number] 1{tbl} Take 1 Univers te-atropine 0-08 tablet by ity of 2.5-0.025 00:00: mouth [place] mg tablet 00 every 8 Medical (eight) Branch hours. loperamide 2020- Yes [id number] 4mg Take 2 U nivers 2 mg 0-08 capsules ity of capsule 00:00: by mouth 4 [place] 00 (four) Medical times Branch daily. ibuprofen 2020- Yes [id number] 800mg Take 1 U nivers 800 mg 0-08 tablet by ity of tablet 00:00: mouth [place] 00 every 6 Medical (six) Branch hours as needed for Pain (scale 4-6). psyllium 2020- Yes [id number] 3{packe Take 3 Univers 3.4 gram 0-08 t} Packets by ity o f packet 00:00: mouth 3 [place] 00 (three) Medical times Branch daily. diphenoxyla 2020- Yes [id number] 1{tbl} Take 1 Univers te-atropine 0-08 tablet by ity of 2.5-0.025 00:00: mouth [place] mg tablet 00 every 8 Medical (eight) Branch hours. loperamide 2020- Yes [id number] 4mg Take 2 U nivers 2 mg 0-08 capsules ity of capsule 00:00: by mouth 4 [place] 00 (four) Medical times Branch daily. ibuprofen 2020- Yes [id number] 800mg Take 1 U nivers 800 mg 0-08 tablet by ity of tablet 00:00: mouth [place] 00 every 6 Medical (six) Branch hours as needed for Pain (scale 4-6). psyllium 2020- Yes [id number] 3{packe Take 3 Univers 3.4 gram 0-08 t} Packets by ity o f packet 00:00: mouth 3 [place] 00 (three) Medical times Branch daily. diphenoxyla 2020- Yes [id number] 1{tbl} Take 1 Univers te-atropine 0-08 tablet by ity of 2.5-0.025 00:00: mouth [place] mg tablet 00 every 8 Medical (eight) Branch hours. loperamide 2019-08 Yes [id number] 4mg Take 2 U nivers 2 mg 0-08 capsules ity of capsule 00:00: by mouth 4 [place] 00 (four) Medical times Branch daily. ibuprofen 2019-08 Yes [id number] 800mg Take 1 U nivers 800 mg 0-08 tablet by ity of tablet 00:00: mouth [place] 00 every 6 Medical (six) Branch hours as needed for Pain (scale 4-6). acetaminoph 2019-08- No [id number] 650mg Take 2 Univers en 325 mg 0-08 10-09 tablets by ity of tablet 00:00: 04:59 mouth [place] 00 :00 every 6 Medical (six) Branch hours as needed for Pain (scale 1-3). acetaminoph 2019-08- No [id number] 650mg Take 2 Univers en 325 mg 0-08 10-09 tablets by ity of tablet 00:00: 04:59 mouth [place] 00 :00 every 6 Medical (six) Branch hours as needed for Pain (scale 1-3). acetaminoph 2019-08- No [id number] 650mg Take 2 Univers en 325 mg 0-08 10-09 tablets by ity of tablet 00:00: 04:59 mouth [place] 00 :00 every 6 Medical (six) Branch hours as needed for Pain (scale 1-3). acetaminoph 2019-08- No [id number] 650mg Take 2 Univers en 325 mg 0-08 10-09 tablets by ity of tablet 00:00: 04:59 mouth [place] 00 :00 every 6 Medical (six) Branch hours as needed for Pain (scale 1-3). acetaminoph 2019-08- No [id number] 650mg Take 2 Univers en 325 mg 0-08 10-09 tablets by ity of tablet 00:00: 04:59 mouth [place] 00 :00 every 6 Medical (six) Branch hours as needed for Pain (scale 1-3). acetaminoph 2019-08- No [id number] 650mg Take 2 Univers en 325 mg 0-08 10-09 tablets by ity of tablet 00:00: 04:59 mouth [place] 00 :00 every 6 Medical (six) Branch hours as needed for Pain (scale 1-3). acetaminoph 2019-08 No [id number] 650mg Take 2 Univers en 325 mg 0-08 10-09 tablets by ity of tablet 00:00: 04:59 mouth [place] 00 :00 every 6 Medical (six) Branch hours as needed for Pain (scale 1-3). acetaminoph 2019-08 No [id number] 650mg Take 2 Univers en 325 mg 0-08 10-09 tablets by ity of tablet 00:00: 04:59 mouth [place] 00 :00 every 6 Medical (six) Branch hours as needed for Pain (scale 1-3). acetaminoph 2019-08 [id number] 650mg Take 2 Univers en 325 mg 0-08 10-09 tablets by ity of tablet 00:00: 04:59 mouth [place] 00 :00 every 6 Medical (six) Branch hours as needed for Pain (scale 1-3). acetaminoph 2019-08 [id number] 650mg Take 2 Univers en 325 mg 0-08 10-09 tablets by ity of tablet 00:00: 04:59 mouth [place] 00 :00 every 6 Medical (six) Branch hours as needed for Pain (scale 1-3). acetaminoph 2019-08 [id number] 650mg Take 2 Univers en 325 mg 0-08 10-09 tablets by ity of tablet 00:00: 04:59 mouth [place] 00 :00 every 6 Medical (six) Branch hours as needed for Pain (scale 1-3). acetaminoph 2019-08 No [id number] 650mg Take 2 Univers en 325 mg 0-08 10-09 tablets by ity of tablet 00:00: 04:59 mouth [place] 00 :00 every 6 Medical (six) Branch hours as needed for Pain (scale 1-3). acetaminoph 2019-08 No [id number] 650mg Take 2 Univers en 325 mg 0-08 10-09 tablets by ity of tablet 00:00: 04:59 mouth [place] 00 :00 every 6 Medical (six) Branch hours as needed for Pain (scale 1-3). acetaminoph 2019-08 No [id number] 650mg Take 2 Univers en 325 mg 0-08 10-09 tablets by ity of tablet 00:00: 04:59 mouth [place] 00 :00 every 6 Medical (six) Branch hours as needed for Pain (scale 1-3). psyllium 2019-08 No [id number] 3{packe Take 3 Univers 3.4 gram 0-08 09-16 t} Packets by ity of packet 00:00: 00:00 mouth 3 [place] 00 :00 (three) Medical times Branch daily. diphenoxyla 2019-08 No [id number] 1{tbl} Take 1 Univers te-atropine 0-08 09-16 tablet by it y of 2.5-0.025 00:00: 00:00 mouth [place] mg tablet 00 :00 every 8 Medical (eight) Branch hours. loperamide 2019-08 No [id number] 4mg Take 2 Univers 2 mg 0-08 09-16 capsules ity of capsule 00:00: 00:00 by mouth 4 [place] 00 :00 (four) Medical times Branch daily. ibuprofen 2019-08 No [id number] 800mg Take 1 [facility] 800 mg 0-08 09-16 tablet by ity of tablet 00:00: 00:00 mouth [place] 00 :00 every 6 Medical (six) Branch hours as needed for Pain (scale 4-6). acetaminoph 2019-08 No [id number] 650mg Take 2 Univers en 325 mg 0-08 09-16 tablets by ity of tablet 00:00: 00:00 mouth [place] 00 :00 every 6 Medical (six) Branch hours as needed for Pain (scale 1-3). psyllium 2019-08 No [id number] 3{packe Take 3 Univers 3.4 gram 0-08 09-16 t} Packets by ity of packet 00:00: 00:00 mouth 3 [place] 00 :00 (three) Medical times Branch daily. diphenoxyla 2019-08 No [id number] 1{tbl} Take 1 Univers te-atropine 0-08 09-16 tablet by it y of 2.5-0.025 00:00: 00:00 mouth [place] mg tablet 00 :00 every 8 Medical (eight) Branch hours. loperamide 2019-08 No [id number] 4mg Take 2 Univers 2 mg 0-08 09-16 capsules ity of capsule 00:00: 00:00 by mouth 4 [place] 00 :00 (four) Medical times Branch daily. ibuprofen 2019-08 [id number] 800mg Take 1 [facility] 800 mg 0-08 09-16 tablet by ity of tablet 00:00: 00:00 mouth [place] 00 :00 every 6 Medical (six) Branch hours as needed for Pain (scale 4-6). acetaminoph 2019-08 [id number] 650mg Take 2 Univers en 325 mg 0-08 09-16 tablets by ity of tablet 00:00: 00:00 mouth [place] 00 :00 every 6 Medical (six) Branch hours as needed for Pain (scale 1-3). acetaminoph 2019-08 No [id number] 650mg Take 2 Univers en 325 mg 0-08 10-08 tablets by ity of tablet 00:00: 00:00 mouth [place] 00 :00 every 6 Medical (six) Branch hours as needed for Pain (scale 1-3). ibuprofen 2019-08 No [id number] 800mg Take 1 [facility] 800 mg 0-08 10-08 tablet by ity of tablet 00:00: 00:00 mouth [place] 00 :00 every 6 Medical (six) Branch hours as needed for Pain (scale 4-6). loperamide 2019-08 No [id number] 4mg Take 2 Univers 2 mg 0-08 10-08 capsules ity of capsule 00:00: 00:00 by mouth 4 [place] 00 :00 (four) Medical times Branch daily. diphenoxyla 2019-08- No [id number] 1{tbl} Take 1 Univers te-atropine 0-08 10-08 tablet by it y of 2.5-0.025 00:00: 00:00 mouth [place] mg tablet 00 :00 every 8 Medical (eight) Branch hours. psyllium 2019-08- No [id number] 3{packe Take 3 Univers 3.4 gram 0-08 [...] mL 05/30/20 at Branch 1400, Routine diphenoxyla 2019- Yes 1{tbl} 1 tablet, Univers te-atropine 0-06 Oral, Q8H, it y of (LOMOTIL) 14:00: [place] 2.5-0.025 00 on e Medical mg tablet 1 05/29/20 at [place] tablet 0900, Until Discontinu ed, Routine psyllium 2019-08 Yes 3{packe 3 Packet, U nivers (METAMUCIL 0-06 t} Oral, TID, ity of FIBER 13:00: First dose [place] SINGLES) 00 (after Medical 3.4 gram last Branch packet 3 modificati Packet on) on Thu05/29/20 at 0800, Until Discontinu ed, Routine magnesium 2019-08 2020- No 4g 4 g, IV Univ ers sulfate in 0-06 10-06 Piggyback, it y of water 4 12:30: 14:29 ONCE, 1 [place] gram/50 mL 00 :00 dose, Tue Medi mariusz (8 %) IV 05/29/20 at [facility] Piggyback 4 0730, g Routine magnesium 2019-08 2020- No 2g 2 g, IV Univ ers sulfate in 0-05 10-05 Piggyback, it y of water 2 13:30: 13:20 ONCE, 1 [place] gram/50 mL 00 :00 dose, Mon Medi mariusz (4 %) 05/28/20 at [place] infusion 2 0830, g Routine loperamide 2019-08 [...] on Sun Medical 3.4 gram 05/27/20 at [facility] packet 1 1999, Packet Until Discontinu ed, Routine loperamide 2019-08 2020- No 4mg 4 mg, Unive rs (IMODIUM 0-04 10-05 Oral, TID, ity of A-D) 19:00: 12:56 First dose [place] capsule 4 00 :31 (after Medical mg last Branch modificati on) on 05/27/20 at 1400, Until Discontinu ed, Routine magnesium 2019- 2020- No 2g 2 g, IV Univ ers sulfate in 0-04 10-04 Piggyback, it y of water 2 13:00: 12:28 ONCE, 1 [place] gram/50 mL 00 :00 dose, Sun Medi mariusz (4 %) 05/27/20 at Branch infusion 2 0800, g Routine lactated 2019- [...] at 2000, Until Discontinu ed, Routine lactated 2019- 2020- No 1000mL at 999 Univ ers ringers IV 0-02 10-03 mL/hr, ity of infusion 20:08: 01:57 1,000 mL, [place] 1,000 mL 00 :00 Intravenou Medic al s, ONCE, 1 Branch dose, Thu05/25/20 at 1515, Routine magnesium 2019- 2020- No 4g 4 g, IV Univ ers sulfate in 0-05-24 Piggyback, it y of water 4 22:15: 22:07 ONCE, 1 [place] gram/50 mL 00 :00 dose, [place] Medi mariusz (8 %) IV 05/24/20 at [facility] h Piggyback 4 1715, g Routine iohexoL [...] 16:01: 16:01 Starting [place] injection 03 :03 [facility] Medical 05/24/20 at Branch 1101, Until [...] dose, Thu Medica l mL) 05/23/20 at [place] injection 1015, 100 mL Routine docusate 2019- [...] 00 :16 dose on Medica l mg Tu [place] 9/29/20 at 2330, Until Discontinu ed, JOÃO
Re ason for Anti-Infec tive: Documented Infection< br>Documen dain Infection Site: Abdominal< br>Duratio n of Therapy: 7 days ondansetron 2020-0 Yes 4mg 4 mg, Slow Univers (ZOFRAN - IV Push, ity of (PF)) 03:15: Administer [place] injection 4 50 over 15 Medic al mg Minutes, Branch Q8HPRN, Starting [facility] 05/22/20 at 2215, Until Discontinu ed, Routine, Nausea and Vomiting (N/V) D5W 0.45% 2020-0 Yes IV Univers NaCl 05-23 Infusion, ity of (1/2NS) 1 L 03:15: at 50 [place] + KCL 20 00 mL/hr, Medical mEq CONTINUOUS Branch , Starting [facility] 05/22/20 at 2230, Until Discontinu ed, Routine ibuprofen 2020-0 Yes 800mg 800 mg, Univ ers (IBU) 05-23 Oral, ity of tablet 800 03:13: Q6HPRN, [place] mg 38 Starting Medical Tue Branch 05/22/20 at 2213, Until Discontinu ed, Routine, Pain (scale 4-6) acetaminoph 2020-0 Yes 650mg 650 mg, Un piyush en 05-23 Oral, ity of (TYLENOL) 03:13: Q6HPRN, [place] tablet 650 36 Starting Medic al mg [facility] 05/22/20 at 2213, Until Discontinu ed, Routine, Pain (scale 1-3) morpHINE 2020-0 2020- No 4mg 4 mg, Slow Un piyush injection 4 05-22 IV Push, ity of mg 03:30: 03:13 ONCE, 1 [place] 00 :00 dose, [facility] Medical 05/21/20 at Branch 2230, STAT piperacilli 2020-0 [...] Therapy: 7 days iohexol 2019- 2020- No 100mL 100 mL, Unive rs (OMNIPAQUE 05-20 Intravenou it y of 350 04:02: 04:02 s, ONCE, 1 [place] BULK-100 00 :00 dose, Sat Medica l mL) 05/19/20 at Branch injection 2315, 100 mL Routine ondansetron 2019- No 4mg 4 mg, Slow Univers (ZOFRAN 05-20 IV Push, ity of (PF)) 03:45: 03:36 ONCE, 1 [place] injection 4 00 :00 dose, Sat Med ical mg 05/19/20 at Branch 2245, JOÃO morpHINE 2019-2019- No 4mg 4 mg, Slow Un piyush injection 4 05-20 IV Push, ity of mg 03:45: 03:36 ONCE, 1 [place] 00 :00 dose, Sat Medical 05/19/20 at Branch 2245, STAT NaCl 0.9% 2019- No 1000mL at 999 Uni vers (NS) bolus 05-20 mL/hr, ity of infusion 03:45: 11:13 1,000 mL, [place] as 1,000 mL 00 :[facility] dose, 05/19/20 at 2245, STAT ibuprofen 2020-0 Yes [id number] 800mg Take 1 U nivers 800 mg 9-18 tablet by ity of tablet 00:00: mouth [place] 00 every 6 Medical (six) Branch hours as needed for Pain (scale 4-6). levoFLOXaci 2020-0 Yes [id number] 750mg Take 1 Univers n 750 mg 9-18 tablet by ity of tablet 00:00: mouth [place] 00 every 24 Medical (twenty-fo Branch ur) hours. loperamide 2020-0 Yes [id number] 2mg Take 1 U nivers 2 mg 9-18 capsule by ity of capsule 00:00: mouth [place] 00 daily. Medical Branch ibuprofen 2020-0 Yes [id number] 800mg Take 1 U nivers 800 mg 9-18 tablet by ity of tablet 00:00: mouth [place] 00 every 6 Medical (six) Branch hours as needed for Pain (scale 4-6). levoFLOXaci 2020-0 Yes [id number] 750mg Take 1 Univers n 750 mg 9-18 tablet by ity of tablet 00:00: mouth [place] 00 every 24 Medical (twenty-fo Branch ur) hours. loperamide 2020-0 Yes [id number] 2mg Take 1 U nivers 2 mg 9-18 capsule by ity of capsule 00:00: mouth [place] 00 daily. Medical Branch ibuprofen 2020-0 Yes [id number] 800mg Take 1 U nivers 800 mg 9-18 tablet by ity of tablet 00:00: mouth [place] 00 every 6 Medical (six) Branch hours as needed for Pain (scale 4-6). levoFLOXaci 2020-0 Yes [id number] 750mg Take 1 Univers n 750 mg 9-18 tablet by ity of tablet 00:00: mouth [place] 00 every 24 Medical (twenty-fo Branch ur) hours. loperamide 2020-0 Yes [id number] 2mg Take 1 U nivers 2 mg 9-18 capsule by ity of capsule 00:00: mouth [place] 00 daily. Medical Branch ibuprofen 2020-0 Yes [id number] 800mg Take 1 U nivers 800 mg 9-18 tablet by ity of tablet 00:00: mouth [place] 00 every 6 Medical (six) Branch hours as needed for Pain (scale 4-6). levoFLOXaci 2020-0 Yes [id number] 750mg Take 1 Univers n 750 mg 9-18 tablet by ity of tablet 00:00: mouth [place] 00 every 24 Medical (twenty-fo Branch ur) hours. loperamide 2020-0 Yes [id number] 2mg Take 1 U nivers 2 mg 9-18 capsule by ity of capsule 00:00: mouth [place] 00 daily. Medical Branch ibuprofen 2020-0 Yes [id number] 800mg Take 1 U nivers 800 mg 9-18 tablet by ity of tablet 00:00: mouth [place] 00 every 6 Medical (six) Branch hours as needed for Pain (scale 4-6). levoFLOXaci 2020-0 Yes [id number] 750mg Take 1 Univers n 750 mg 9-18 tablet by ity of tablet 00:00: mouth [place] 00 every 24 Medical (twenty-fo Branch ur) hours. loperamide 2020-0 Yes [id number] 2mg Take 1 U nivers 2 mg 9-18 capsule by ity of capsule 00:00: mouth [place] 00 daily. Medical Branch ibuprofen 2020-0 Yes [id number] 800mg Take 1 U nivers 800 mg 9-18 tablet by ity of tablet 00:00: mouth [place] 00 every 6 Medical (six) Branch hours as needed for Pain (scale 4-6). levoFLOXaci 2020-0 Yes [id number] 750mg Take 1 Univers n 750 mg 9-18 tablet by ity of tablet 00:00: mouth [place] 00 every 24 Medical (twenty-fo Branch ur) hours. loperamide 2020-0 Yes [id number] 2mg Take 1 U nivers 2 mg 9-18 capsule by ity of capsule 00:00: mouth [place] 00 daily. Medical Branch ibuprofen 2020-0 Yes [id number] 800mg Take 1 U nivers 800 mg 9-18 tablet by ity of tablet 00:00: mouth [place] 00 every 6 Medical (six) Branch hours as needed for Pain (scale 4-6). levoFLOXaci 2020-0 Yes [id number] 750mg Take 1 Univers n 750 mg 9-18 tablet by ity of tablet 00:00: mouth [place] 00 every 24 Medical (twenty-fo Branch ur) hours. loperamide 2020-0 Yes [id number] 2mg Take 1 U nivers 2 mg 9-18 capsule by ity of capsule 00:00: mouth [place] 00 daily. Medical Branch ibuprofen 2020-0 Yes [id number] 800mg Take 1 U nivers 800 mg 9-18 tablet by ity of tablet 00:00: mouth [place] 00 every 6 Medical (six) Branch hours as needed for Pain (scale 4-6). levoFLOXaci 2020-0 Yes [id number] 750mg Take 1 Univers n 750 mg 9-18 tablet by ity of tablet 00:00: mouth [place] 00 every 24 Medical (twenty-fo Branch ur) hours. loperamide 2020-0 Yes [id number] 2mg Take 1 U nivers 2 mg 9-18 capsule by ity of capsule 00:00: mouth [place] 00 daily. Medical Branch ibuprofen 2020-0 Yes [id number] 800mg Take 1 U nivers 800 mg 9-18 tablet by ity of tablet 00:00: mouth [place] 00 every 6 Medical (six) Branch hours as needed for Pain (scale 4-6). levoFLOXaci 2020-0 Yes [id number] 750mg Take 1 Univers n 750 mg 9-18 tablet by ity of tablet 00:00: mouth [place] 00 every 24 Medical (twenty-fo Branch ur) hours. loperamide 2020-0 Yes [id number] 2mg Take 1 U nivers 2 mg 9-18 capsule by ity of capsule 00:00: mouth [place] 00 daily. Medical Branch ibuprofen 2020-0 Yes [id number] 800mg Take 1 U nivers 800 mg 9-18 tablet by ity of tablet 00:00: mouth [place] 00 every 6 Medical (six) Branch hours as needed for Pain (scale 4-6). levoFLOXaci 2020-0 Yes [id number] 750mg Take 1 Univers n 750 mg 9-18 tablet by ity of tablet 00:00: mouth [place] 00 every 24 Medical (twenty-fo Branch ur) hours. loperamide 2020-0 Yes [id number] 2mg Take 1 U nivers 2 mg 9-18 capsule by ity of capsule 00:00: mouth [place] 00 daily. Medical Branch ibuprofen 2020-0 Yes [id number] 800mg Take 1 U nivers 800 mg 9-18 tablet by ity of tablet 00:00: mouth [place] 00 every 6 Medical (six) Branch hours as needed for Pain (scale 4-6). levoFLOXaci 2020-0 Yes [id number] 750mg Take 1 Univers n 750 mg 9-18 tablet by ity of tablet 00:00: mouth [place] 00 every 24 Medical (twenty-fo Branch ur) hours. loperamide 2020-0 Yes [id number] 2mg Take 1 U nivers 2 mg 9-18 capsule by ity of capsule 00:00: mouth [place] 00 daily. Medical Branch ibuprofen 2020-0 Yes [id number] 800mg Take 1 U nivers 800 mg 9-18 tablet by ity of tablet 00:00: mouth [place] 00 every 6 Medical (six) Branch hours as needed for Pain (scale 4-6). levoFLOXaci 2020-0 Yes [id number] 750mg Take 1 Univers n 750 mg 9-18 tablet by ity of tablet 00:00: mouth [place] 00 every 24 Medical (twenty-fo Branch ur) hours. loperamide 2020-0 Yes [id number] 2mg Take 1 U nivers 2 mg 9-18 capsule by ity of capsule 00:00: mouth [place] 00 daily. Medical Branch ibuprofen 2020-0 Yes [id number] 800mg Take 1 U nivers 800 mg 9-18 tablet by ity of tablet 00:00: mouth [place] 00 every 6 Medical (six) Branch hours as needed for Pain (scale 4-6). levoFLOXaci 2019-0 Yes [id number] 750mg Take 1 Univers n 750 mg 9-18 tablet by ity of tablet 00:00: mouth [place] 00 every 24 Medical (twenty-fo Branch ur) hours. loperamide 2019-0 Yes [id number] 2mg Take 1 U nivers 2 mg 9-18 capsule by ity of capsule 00:00: mouth [place] 00 daily. Medical Branch acetaminoph 2020- No [id number] 650mg Take 2 Univers en 325 mg 9-18 09-19 tablets by ity of tablet 00:00: 04:59 mouth [place] 00 :00 every 6 Medical (six) Branch hours as needed for Pain (scale 1-3). acetaminoph 2020- No [id number] 650mg Take 2 Univers en 325 mg 9-18 09-19 tablets by ity of tablet 00:00: 04:59 mouth [place] 00 :00 every 6 Medical (six) Branch hours as needed for Pain (scale 1-3). acetaminoph No [id number] 650mg Take 2 Univers en 325 mg 9-18 09-19 tablets by ity of tablet 00:00: 04:59 mouth [place] 00 :00 every 6 Medical (six) Branch hours as needed for Pain (scale 1-3). acetaminoph No [id number] 650mg Take 2 Univers en 325 mg 9-18 09-19 tablets by ity of tablet 00:00: 04:59 mouth [place] 00 :00 every 6 Medical (six) Branch hours as needed for Pain (scale 1-3). acetaminoph 2020- No [id number] 650mg Take 2 Univers en 325 mg 9-18 09-19 tablets by ity of tablet 00:00: 04:59 mouth [place] 00 :00 every 6 Medical (six) Branch hours as needed for Pain (scale 1-3). acetaminoph No [id number] 650mg Take 2 Univers en 325 mg 9-18 09-19 tablets by ity of tablet 00:00: 04:59 mouth [place] 00 :00 every 6 Medical (six) Branch hours as needed for Pain (scale 1-3). acetaminoph No [id number] 650mg Take 2 Univers en 325 mg 9-18 09-19 tablets by ity of tablet 00:00: 04:59 mouth [place] 00 :00 every 6 Medical (six) Branch hours as needed for Pain (scale 1-3). acetaminoph [id number] 650mg Take 2 Univers en 325 mg 9-18 09-19 tablets by ity of tablet 00:00: 04:59 mouth [place] 00 :00 every 6 Medical (six) Branch hours as needed for Pain (scale 1-3). acetaminoph [id number] 650mg Take 2 Univers en 325 mg 9-18 09-19 tablets by ity of tablet 00:00: 04:59 mouth [place] 00 :00 every 6 Medical (six) Branch hours as needed for Pain (scale 1-3). acetaminoph [id number] 650mg Take 2 Univers en 325 mg 9-18 09-19 tablets by ity of tablet 00:00: 04:59 mouth [place] 00 :00 every 6 Medical (six) Branch hours as needed for Pain (scale 1-3). acetaminoph [id number] 650mg Take 2 Univers en 325 mg 9-18 09-19 tablets by ity of tablet 00:00: 04:59 mouth [place] 00 :00 every 6 Medical (six) Branch hours as needed for Pain (scale 1-3). acetaminoph [id number] 650mg Take 2 Univers en 325 mg 9-18 09-19 tablets by ity of tablet 00:00: 04:59 mouth [place] 00 :00 every 6 Medical (six) Branch hours as needed for Pain (scale 1-3). acetaminoph No [id number] 650mg Take 2 Univers en 325 mg 9-18 09-19 tablets by ity of tablet 00:00: 04:59 mouth [place] 00 :00 every 6 Medical (six) Branch hours as needed for Pain (scale 1-3). acetaminoph [id number] 650mg Take 2 Univers en 325 mg 9-18 10-08 tablets by ity of tablet 00:00: 00:00 mouth [place] 00 :00 every 6 Medical (six) Branch hours as needed for Pain (scale 1-3). ibuprofen No [id number] 800mg Take 1 Univers 800 mg 9-18 10-08 tablet by ity of tablet 00:00: 00:00 mouth [place] 00 :00 every 6 Medical (six) Branch hours as needed for Pain (scale 4-6). levoFLOXaci No [id number] 750mg Take 1 Univers n 750 mg 9-18 10-08 tablet by ity o f tablet 00:00: 00:00 mouth [place] 00 :00 every 24 Medical (twenty-fo Branch ur) hours. loperamide 2019- No [id number] 2mg Take 1 Univers 2 mg 9-18 [...] 7 days. Indication s: acute pain HYDROcodone 2020- No [id number] 1{tbl} Take 1 U [...] 00 dose on Medica l mg Thu [place] 05/09/20 at 1900, Until Discontinu ed, JOÃO
[...] br>Duratio n of Therapy: 14 days magnesium 2020- No 4g 4 g, IV Univ ers sulfate in 05-08 Piggyback, it y of water 4 12:30: 12:54 ONCE, 1 [place] gram/50 mL 00 :00 dose, Tue Medi mariusz (8 %) IV 05/08/20 at Branc h Piggyback 4 0730, g Routine loperamide Yes 2mg 2 mg, Univer s (IMODIUM 05-08 Oral, Q4H, ity o f A-D) 01:00: First dose [place] capsule 2 00 on Mon Medical mg 05/07/20 at Branch 2000, Until Discontinu ed, Routine lactated 2020-0 2020- No 1000mL at 999 [facility] ers ringers IV 05-07 mL/hr, ity of infusion 22:15: 22:21 1,000 mL, [place] as 1,000 mL 00 :00 Intravenou Medic al s, ONCE, 1 Branch dose, [facility] 05/07/20 at 1715, Routine lactated 2020-0 2020- No 1000mL at 999 Univ ers ringers IV 05-07 mL/hr, ity of infusion 13:15: 14:09 1,000 mL, [place] 1,000 mL 00 :00 Intravenou Medic al s, ONCE, 1 Branch dose, [facility] 05/07/20 at 0815, Routine HYDROcodone 2020-0 Yes 1{tbl} 1 tablet, Univers -acetaminop 05-07 Oral, ity of hen (NORCO 13:00: Q6HPRN, [place] 5) 5-325 mg 00 Starting [facility] mariusz tablet 1 Mon [place] tablet 05/07/20 at 0800, Until Discontinu ed, Routine, Pain (scale 4-6) magnesium 2020-0 2020- No 2g 2 g, IV [facility] ers sulfate in 05-07 Piggyback, it y of water 2 13:00: 15:10 ONCE, 1 [place] gram/50 mL 00 :00 dose, [facility] (4 %) 05/07/20 at [place] infusion 2 0800, g Routine ibuprofen 2020-0 Yes 800mg 800 mg, [facility] ers (IBU) 05-07 Oral, ity of tablet 800 12:45: Q6HPRN, [place] mg 22 Starting [facility] 05/07/20 at 0745, Until Discontinu ed, Routine, Pain (scale 4-6) FENTanyl PF 2020-0 2020- No Slow IV Un piyush (SUBLIMAZE 05-05 Push, PRN, it y of (PF)) 18:53: 20:05 Starting [place] injection 39 :03 [facility] Medical 05/05/20 at [place] 1353, Until Discontinu ed, Routine lidocaine 2020-0 2020- No PRN, Univers 1% (PF) 05-05 Starting ity of (XYLOCAINE) 18:26: 18:26 Sat [place] injection 34 :34 05/05/[address] [facility] 1326, Branch Until Discontinu ed, Routine NaCl 0.9% 2019- 2020- No CONTINUOUS U nivers (NS) bolus 05-05 PRN, ity of infusion 18:15: 18:15 Starting [place] 06 :06 Sat Medical 05/05/20 at Branch 1315, Until Discontinu ed, STAT D5W 0.45% 2019-0 2020- No IV Univers NaCl 05-05 Infusion, [...] First dose Medica l I.V.) RTU on [facility] IV infusion 05/05/20 at 500 mg 0230, Until Discontinu ed, 100 mL
Reas on for Anti-Infec tive: Empiric Therapy for Suspected Infection< br>Empiric Therapy Site: Skin / Soft tissue
Duration of therapy: 7 days levoFLOXaci 2019- 2020- No 750mg 750 mg, IV Univers [...] at 0114, Routine, Pain (scale 7-10) HYDROcodone 2020-0 2020- No 1{tbl} 1 tablet, Univers -acetaminop [...] Branch 05/04/20 at 2215, Routine ondansetron 2019-0 2019- No 4mg 4 [...] Indication s: acute pain ibuprofen 2020-0 Yes [id number] 400mg Take 2 Univers 200 mg 9-08 tablets by ity of tablet 00:00: mouth [place] 00 every 6 Medical (six) Branch hours as needed for Pain (scale 1-3). ibuprofen 2020-0 Yes [id number] 400mg Take 2 Univers 200 mg 9-08 tablets by ity of tablet 00:00: mouth [place] 00 every 6 Medical (six) Branch hours as needed for Pain (scale 1-3). ibuprofen 2020-0 Yes [id number] 400mg Take 2 Univers 200 mg 9-08 tablets by ity of tablet 00:00: mouth [place] 00 every 6 Medical (six) Branch hours as needed for Pain (scale 1-3). ibuprofen 2020-0 Yes [id number] 400mg Take 2 Univers 200 mg 9-08 tablets by ity of tablet 00:00: mouth [place] 00 every 6 Medical (six) Branch hours as needed for Pain (scale 1-3). ibuprofen 2020-0 Yes [id number] 400mg Take 2 Univers 200 mg 9-08 tablets by ity of tablet 00:00: mouth [place] 00 every 6 Medical (six) Branch hours as needed for Pain (scale 1-3). ibuprofen 2020-0 Yes [id number] 400mg Take 2 Univers 200 mg 9-08 tablets by ity of tablet 00:00: mouth [place] 00 every 6 Medical (six) Branch hours as needed for Pain (scale 1-3). ibuprofen 2020-0 Yes [id number] 400mg Take 2 Univers 200 mg 9-08 tablets by ity of tablet 00:00: mouth [place] 00 every 6 Medical (six) Branch hours as needed for Pain (scale 1-3). acetaminoph 2020-0 2020- No [id number] 650mg Take 2 Univers en 05-01 tablets by ity of (TYLENOL) 00:00: 04:59 mouth [place] 325 mg 00 :00 every 6 Medical tablet (six) Branch hours as needed for Pain (scale 4-6). acetaminoph 2020- No [id number] 650mg Take 2 Univers en 05-01 tablets by ity of (TYLENOL) 00:00: 04:59 mouth [place] 325 mg 00 :00 every 6 Medical tablet (six) Branch hours as needed for Pain (scale 4-6). acetaminoph 2020- No [id number] 650mg Take 2 Univers en 05-01 tablets by ity of (TYLENOL) 00:00: 04:59 mouth [place] 325 mg 00 :00 every 6 Medical tablet (six) Branch hours as needed for Pain (scale 4-6). acetaminoph 2020- No [id number] 650mg Take 2 Univers en 05-01 tablets by ity of (TYLENOL) 00:00: 04:59 mouth [place] 325 mg 00 :00 every 6 Medical tablet (six) Branch hours as needed for Pain (scale 4-6). acetaminoph 2020- No [id number] 650mg Take 2 Univers en 05-01 tablets by ity of (TYLENOL) 00:00: 04:59 mouth [place] 325 mg 00 :00 every 6 Medical tablet (six) Branch hours as needed for Pain (scale 4-6). acetaminoph 2020- No [id number] 650mg Take 2 Univers en 05-01 tablets by ity of (TYLENOL) 00:00: 04:59 mouth [place] 325 mg 00 :00 every 6 Medical tablet (six) Branch hours as needed for Pain (scale 4-6). acetaminoph 2020- No [id number] 650mg Take 2 Univers en 05-01 tablets by ity of (TYLENOL) 00:00: 04:59 mouth [place] 325 mg 00 :00 every 6 Medical tablet (six) Branch hours as needed for Pain (scale 4-6). ciprofloxac 2019-2019- No [id number] 750mg Take 1 Univers in HCl 750 05-01 tablet by ity of mg tablet 00:00: 04:59 mouth [place] 00 :00 every 12 Medical (twelve) Branch hours for 14 days. amoxicillin 2019-2019- No [id number] 1{tbl} Take 1 Univers -clavulanat 05-01 tablet by it y of e 00:00: 04:59 mouth 2 [place] (AUGMENTIN) 00 :00 (two) Medical 875-125 mg times Branch per tablet daily for 14 days. ciprofloxac 2019-2019- No [id number] 750mg Take 1 Univers in HCl 750 05-01 tablet by ity of mg tablet 00:00: 04:59 mouth [place] 00 :00 every 12 Medical (twelve) Branch hours for 14 days. amoxicillin 2019-2019- No [id number] 1{tbl} Take 1 Univers -clavulanat 05-01 tablet by it y of e 00:00: 04:59 mouth 2 [place] (AUGMENTIN) 00 :00 (two) Medical 875-125 mg times Branch per tablet daily for 14 days. ciprofloxac 2019-2019- No [id number] 750mg Take 1 Univers in HCl 750 05-01 tablet by ity of mg tablet 00:00: 04:59 mouth [place] 00 :00 every 12 Medical (twelve) Branch hours for 14 days. amoxicillin 2019-2019- No [id number] 1{tbl} Take 1 Univers -clavulanat 05-01 tablet by it y of e 00:00: 04:59 mouth 2 [place] (AUGMENTIN) 00 :00 (two) Medical 875-125 mg times Branch per tablet daily for 14 days. ciprofloxac 2019-2019- No [id number] 750mg Take 1 Univers in HCl 750 05-01 tablet by ity of mg tablet 00:00: 04:59 mouth [place] 00 :00 every 12 Medical (twelve) Branch hours for 14 days. amoxicillin 2020-2019- No [id number] 1{tbl} Take 1 Univers -clavulanat 05-01 tablet by it y of e 00:00: 04:59 mouth 2 [place] (AUGMENTIN) 00 :00 (two) Medical 875-125 mg times Branch per tablet daily for 14 days. ciprofloxac 2019-2019- No [id number] 750mg Take 1 Univers in HCl 750 05-01 tablet by ity of mg tablet 00:00: 04:59 mouth [place] 00 :00 every 12 Medical (twelve) Branch hours for 14 days. amoxicillin 2019- No [id number] 1{tbl} Take 1 Univers -clavulanat 05-01 tablet by it y of e 00:00: 04:59 mouth 2 [place] (AUGMENTIN) 00 :00 (two) Medical 875-125 mg times Branch per tablet daily for 14 days. ciprofloxac 2019- No [id number] 750mg Take 1 Univers in HCl 750 05-01 tablet by ity of mg tablet 00:00: 04:59 mouth [place] 00 :00 every 12 Medical (twelve) Branch hours for 14 days. amoxicillin 2019- No [id number] 1{tbl} Take 1 Univers -clavulanat 05-01 tablet by it y of e 00:00: 04:59 mouth 2 [place] (AUGMENTIN) 00 :00 (two) Medical 875-125 mg times Branch per tablet daily for 14 days. ciprofloxac 2019- No [id number] 750mg Take 1 Univers in HCl 750 05-01 tablet by ity of mg tablet 00:00: 04:59 mouth [place] 00 :00 every 12 Medical (twelve) Branch hours for 14 days. amoxicillin 2019- No [id number] 1{tbl} Take 1 Univers -clavulanat 05-01 tablet by it y of e 00:00: 04:59 mouth 2 [place] (AUGMENTIN) 00 :00 (two) Medical 875-125 mg times Branch per tablet daily for 14 days. acetaminoph 2019- 2020- No [id number] 650mg Take 2 Univers en 05-01 tablets by ity of (TYLENOL) 00:00: 00:00 mouth [place] 325 mg 00 :00 every 6 Medical tablet (six) Branch hours as needed for Pain (scale 4-6). ibuprofen 2019- 2020- No [id number] 400mg Take 2 Univers 200 mg 05-01 tablets by ity of tablet 00:00: 00:00 mouth [place] 00 :00 every 6 Medical (six) Branch hours as needed for Pain (scale 1-3). ciprofloxac 2020-0 2020- No [id number] 750mg Take 1 Univers in HCl 750 05-01 tablet by ity of mg tablet 00:00: 00:00 mouth [place] 00 :00 every 12 Medical (twelve) Branch hours for 14 days. amoxicillin 2020-0 2020- No [id number] 1{tbl} Take 1 Univers -clavulanat 05-01 tablet by it y of e 00:00: 00:00 mouth 2 [place] (AUGMENTIN) 00 :00 (two) Medical 875-125 mg times Branch per tablet daily for 14 days. lactated 2020-0 2020- No 1000mL at 999 Univ ers ringers IV 04-25-02 mL/hr, ity of infusion 14:15: 13:31 1,000 mL, Javi as 1,000 mL 00 :00 Intravenou Medic al s, ONCE, 1 Branch dose, Thu04/25/20 at 0915, Routine amoxicillin 2019-0 Yes 1{tbl} 1 tablet, Univers -clavulanat 04-25 Oral, ity of e 01:00: Q12H, [place] (AUGMENTIN) 00 First dose Me dical 875-125 mg on Thu per tablet 04/24/20 at 1 tablet 2000, Until Discontinu ed, Routine
Reason for Anti-Infec tive: Empiric Therapy for Suspected Infection< br>Empiric Therapy Site: Abdominal& lt;br>Dura tion of therapy: 72 hours enoxaparin 2019-0 Yes 40mg 40 mg, Unive [...] at 125 Univ ers ringers IV 04-23 mL/hr, ity of infusion 23:15: 16:44 1,000 mL, [place] 1,000 mL 00 :20 IV Medical Infusion, Branch CONTINUOUS , Starting Thu04/23/20 at 1815, Until Thu04/24/20 at 1144, Routine NaCl 0.9% 2020-0 2020- No 1000mL at 999 Uni vers (NS) bolus 04-23 08-31 mL/hr, ity of infusion 16:30: 16:14 1,000 mL, [place] 1,000 mL 00 :00 IV Medical Piggyback, Branch ONCE, 1 dose, 04/23/20 at 1130, STAT micafungin 2019-0 2020- No 100mg 100 mg, IV Univers (MYCAMINE) 04-22 Piggyback, it y of 100 mg in 13:00: 15:59 Q24H ABX, [place] NaCl 0.9% 00 :00 1 dose, Medical (NS) 100 mL First dose Br anch MINI-BAG (after last reorder) on [place] 04/22/20 at 0800, 100 mL
Rest ricted use approved by: [employer]< br>Reason for Anti-Infec tive: Documented Infection< br>Documen dain Infection Site: Abdominal< br>Duratio n of Therapy: 7 days ciprofloxac 2020-0 Yes 750mg 750 mg, Un piyush in HCl 04-21 Oral, ity of (CIPRO) 23:00: Q12HA2, [place] tablet 750 00 First dose Med ical mg on [facility] 04/21/20 at 1800, Until Discontinu ed, JOÃO
Re ason for Anti-Infec tive: Documented Infection< br>Documen dain Infection Site: Abdominal< br>Duratio n of Therapy: 7 days aspirin 2020-0 Yes 81mg 81 mg, Univers chewable 04-21 Oral, ity of tablet 81 14:00: DAILY, [place] mg 00 First dose Medical on [facility] 04/21/20 at 0900, Until Discontinu ed, Routine multivitami 2020-0 Yes 1{tbl} 1 tablet, Univers n tablet 1 04-21 Oral, ity of tablet 14:00: DAILY, [place] 00 First dose Medical on [facility] 04/21/20 at 0900, Until Discontinu ed, Routine amoxicillin 2020-0 2020- No 500mg 500 mg, U nivers -pot 04-21 Oral, TID, ity of clavulanate 13:00: 14:44 First dose [place] 500 mg 00 :32 on Sat Medical (AUGMENTIN 04/21/20 at [facility] 500) 0800, 500-125 mg Until tablet [...] Routine, Pain (scale 7-10) D5W 0.45% 2019- 2020- No IV Univers NaCl 04-19 Infusion, [...] 4-6), Temp > 38.5 C D5W 0.45% 2019- No IV Univers NaCl 04-18 Infusion, ity [...] :34 First dose Med ical mg on [facility] Branch 04/17/20 at 2045, Until Discontinu ed, JOÃO
Re ason for Anti-Infec tive: Documented Infection< br>Documen dain Infection Site: Abdominal< br>Duratio n of Therapy: 7 days micafungin No 100mg 100 mg, IV Univers [...] Pain (scale 4-6), Pain (scale 7-10) aspirin 2019-2019- No 325mg 325 mg, Unive rs tablet 325 04-17 Oral, ity of mg 14:00: 15:33 DAILY, [place] 00 :03 First dose Medical on Thu Branch 04/17/20 at 0900, Until Discontinu ed, Routine lidocaine 2019- 2020- No PRN, Univers 1% (PF) 04-16 Starting ity of (XYLOCAINE) 21:17: 21:17 Mon [place] injection 53 :53 04/16/[address] [facility] 1617, Branch Until [facility] 04/16/20 at 1617, Routine FENTanyl PF 2019- No Slow IV Un piyush (SUBLIMAZE 04-16 Push, PRN, it y of (PF)) 21:16: 21:16 Starting [place] injection 07 :07 [facility] Medical 04/16/20 at Branch 1616, Until Thu04/16/20 at 1616, Routine midazolam 2019- No IV Push, Uni vers (VERSED) 04-16 PRN, ity of injection 21:16: 21:16 Starting [place] 07 :07 [facility] Medical 04/16/20 at Branch 1616, Until Thu04/16/20 at 1616, Routine piperacilli 2019- No 3.375g [...] Therapy: 7 days iohexol 2019-0 2020- No 120mL 120 mL, Unive rs (OMNIPAQUE 04-16 Intravenou it y of 350 07:15: 06:55 s, ONCE, 1 [place] BULK-150 00 :00 dose, Mon Medica l mL) 04/16/20 at Branch injection 0215, 120 mL Routine DAPTOmycin 2019- [...] mcg Starting Branch 04/13/20 at 1709, Until Thu04/17/20 at 1211, Routine, Pain (scale 7-10) FENTanyl PF 2020- No Slow IV Un piyush (SUBLIMAZE 04-13 Push, PRN, it y of (PF)) 19:31: 19:55 Starting [place] injection 48 :00 Fri Medical 04/13/20 at Branch 1431, Until Thu04/13/20 at 1455, Routine midazolam 2020- No IV Push, Uni [...] [place] 04/12/20 at 1999, Last dose on [place] 04/15/20 at 1999, 100 mL
Reas on [...] of Therapy: 7 days D5W 0.45% 2019- 2020- No IV Univers NaCl 04-12 Infusion, ity [...] br>Duratio n of therapy: 72 hours ketorolac 2019-0 2020- No 15mg 15 mg, Unive rs (TORADOL) 04-12 Slow IV ity of injection 17:00: 17:03 Push, ONCE [place] 15 mg 00 :00 NOW, 1 Medical dose, [place] Branch 04/12/20 at 1200, Routine
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 : BIA PEDRO D5W 0.45% 2019-0 2020- No IV Univers NaCl 04-11 Infusion, ity of (1/2NS) 1 L 14:00: 21:44 at 42 [place] + KCL 20 00 :46 mL/hr, Medical mEq CONTINUOUS Branch , Starting Thu04/11/20 at 0900, Until [place] 04/12/20 at 1644, Routine pantoprazol 2019-0 2020- No 40mg 40 [...] in 06 :54 Starting Medica l lactated [facility] Branch ringers 04/11/20 at 1,000 mL [...] 1 [place] gram/50 mL 00 :00 dose, [facility] Medi mariusz (4 %) 04/11/20 at Branch infusion 2 0645, g Routine Total 2020- No at 40 Univers Parenteral 04-10 mL/hr, ity of Nutrition 22:00: 11:51 2,040 mL, [place] 00 :29 TPNCONTINU Medical OUS, 1 Branch dose, First dose (after last modificati on) on [facility] 04/10/20 at 1700 magnesium 2019-2019- No 4g 4 g, IV Univ ers sulfate in 04-10 Piggyback, it y of water 4 13:30: 13:41 ONCE, 1 [place] gram/50 mL 00 :00 dose, [facility] Medi mariusz (8 %) IV 04/10/20 at Branc h Piggyback 4 0830, g Routine DAPTOmycin 2019- No 500mg 500 mg, IV Univers (CUBICIN) 04-10 Piggyback, ity of 500 mg in 06:00: 15:57 Q24H ABX, [place] NaCl 0.9% 00 :33 First dose Medi mariusz (NS) on [facility] piggyback 04/10/20 at 0100, Until Discontinu ed, 100 mL
R mitali for Anti-Infec tive: Documented Infection< br>Documen dain Infection Site: Abdominal< br>Duratio n of Therapy: 7 days
Re stricted use approved by: [employer] ibuprofen 2019- No 600mg 600 mg, Uni vers (IBU) 04-10 Oral, Q8H, ity of tablet 600 03:00: 10:59 First dose [place] mg 00 :06 on [facility] 04/09/20 at Branch 2200, Until Discontinu ed, Routine micafungin 2019- No 100mg 100 mg, IV Univers (MYCAMINE) 04-10 Piggyback, it y of 100 mg in 02:45: 15:57 Q24H ABX, [place] NaCl 0.9% 00 :33 First dose Medi mariusz (NS) 100 mL on [facility] MINI-BAG 04/09/20 at 2145, Until Discontinu ed, [...] [place] tablet 500 00 :23 on [facility] Medical mg 04/09/20 at Branch 1800, Until Discontinu ed, Routine Total 2020- No at 85 Univers Parenteral 04-09 mL/hr, ity of Nutrition 22:00: 22:18 2,040 mL, [place] 00 :00 TPNCONTINU Medical OUS, 1 Branch dose, First dose (after last reorder) on Thu04/09/20 at 1700 KCL 2019- 2020- No IV Univers (POTASSIUM 04-09 Infusion, ity of CHLORIDE) 17:43: 13:52 TITRATE, [place] 20 mEq in 20 :43 Starting Medica l lactated [facility] ringers 04/09/20 at 1,000 mL 1243, infusion [...] Routine
Indicatio n: Perioperat ector Patient sodium 2019-0 2020- No Topical, Univer s hypochlorit 04-09 [...] Medic al (NS) 250 mL 04/09/20 at [place] piggyback 0700, 250 mL Total 2019- 2020- No at 85 Univers Parenteral 04-08 mL/hr, ity of Nutrition 22:00: 21:45 2,040 mL, [place] 00 :00 TPNCONTINU Medical OUS, 1 Branch dose, First dose (after last modificati on) on [place] 04/08/20 at 1700 acetaminoph 2019-0 2020- No 1000mg 1,000 mg, Univers en ADULT 04-08 IV ity of (OFIRMEV) 17:00: 11:15 Infusion, [place] injection 00 :00 Administer Medi mariusz 1,000 mg over 15 Branch Minutes, Q6H, 4 doses, First dose (after last modificati on) on 04/08/20 at 1200, Last dose on [facility] 04/09/20 at 0600, Routine
Indicatio n: Perioperat ector Patient acetaminoph 2019-0 2020- No 1000mg 1,000 mg, Univers en ADULT 04-07 IV ity of (OFIRMEV) 23:00: 14:28 Infusion, [place] injection 00 :31 Administer Medi mariusz 1,000 mg over 15 Branch Minutes, Q6H, 4 doses, First dose (after last reorder) on [facility] 04/07/20 at 1800, Last dose on [place] 04/08/20 at 1200, Routine
Indicatio n: Perioperat ector Patient D5W-LR IV 2019- 2020- No 1000mL at 60 Univ ers infusion 04-07 08-16 mL/hr, IV ity o f 1,000 mL 22:45: 15:29 Infusion, [place] 00 :52 CONTINUOUS Medical , Starting Branch [facility] 04/07/20 at 1745, Until [place] 04/08/20 at 1029, Routine Total 2019- 2020- No at 85 Univers Parenteral 04-07 08-16 mL/hr, ity of Nutrition 22:00: 22:05 2,040 mL, [place] 00 :00 TPNCONTINU Medical OUS, 1 Branch dose, First dose on [facility] 04/07/20 at 1700 fluconazole 2019- 2020- No 400mg at 100 Un piyush (DIFLUCAN) 04-07 08-18 mL/hr, IV ity of IV 20:00: 01:35 Piggyback, [place] Piggyback 00 :07 Q24H ABX, Medic al 400 mg First dose Branch on 04/07/20 at 1500, Until Discontinu ed, JOÃO multivitami 2019- 2020- No 15mL 15 mL, Uni vers n (CENTRUM) 04-07 08-28 Enteral, ity of solution 15 14:00: 15:31 DAILY, [place] mL 00 :33 First dose Medical (after Branch last modificati on) on [facility] 04/07/20 at 0900, Until Discontinu ed, Routine heparin 2019- No 5000U 5,000 Univers (porcine) 04-07 08-19 Units, ity of injection 11:00: 11:53 Subcutaneo [place] 5,000 Units 00 :30 us, Q8H, Medi mariusz First dose Branch on 04/07/20 at 0600, Until Discontinu ed, Routine D5W-LR IV 2019- 2020- No 1000mL at 150 Uni vers infusion 04-07 08-15 mL/hr, IV ity o f 1,000 mL 08:45: 22:41 Infusion, [place] 00 :18 CONTINUOUS Medical , Starting Branch [facility] 04/07/20 at 0345, Until 04/07/20 at 1741, Routine D5W-LR IV 2020-0 2020- No 1000mL at 200 Uni vers infusion 04-07 mL/hr, IV ity o f [...] Bottle), ity of e 0.5% 01:00: Topical, [place] (DAKINS) 00 BID, First Medic al solution dose Branch 473 mL (after last modificati on) on Thu04/06/20 at 2000, Until Discontinu ed, Routine linezolid 2020- No 600mg 600 mg, IV Univers in dextrose 04-0618 Infusion, it y of 5% (ZYVOX) 23:15: [...] by: Complicate d intra-abdo anca infection acetaminoph 2020- No 1000mg 1,000 mg, Univers [...] Medical 25 g First dose Branch on 04/06/20 at 1800, Last dose on 04/07/20 at 1200, 500 mL
[place] cation: SEVERE SEPSIS AND SEPTIC SHOCK
C omments: First-line therapy: Crystalloi ds. Albumin in fluid resuscitat ion when patient requires substantia l amounts of crystalloi ds. perflutren 2019- 2020- No 3mL 3 mL, IV Un piyush [...] o f succ 21:15: 22:41 ONCE, 1 [place] (CORTEF) 00 :00 dose, Fri Medica l 100 mg in 04/06/20 at Bran ch NaCl 0.9% 1615, 50 (NS) mL piggyback vasopressin 2019- 2020- No .03U/mi 0.03 Un piyush (PITRESSIN 04-06 n Units/min ity of SYNTHETIC) 21:00: 11:04 (4.5 [place] 40 Units in 00 :07 mL/hr), IV Me dical NaCl 0.9% Infusion, Branc h (NS) 100 mL CONTINUOUS infusion , Starting 04/06/20 at 1600 magnesium 2019- 2020- No 4g 4 g, IV Univ ers sulfate in 04-06 Piggyback, it y of water 4 21:00: 00:03 ONCE, 1 [place] gram/50 mL 00 :00 dose, Fri Medi mariusz (8 %) IV 04/06/20 at Branc h Piggyback 4 1600, g Routine lactated 2019-0 2020- No 1000mL at 999 Univ ers ringers IV 04-06 08-14 mL/hr, ity of infusion 20:01: 20:15 1,000 mL, [place] 1,000 mL 00 :00 Intravenou Medic al s, ONCE, 1 Branch dose, Thu04/06/20 at 1515, STAT meropenem 2019- No 1000mg 1,000 mg, Univers (MERREM) 04-06 08-18 IV ity of 1,000 mg in 19:30: 01:35 Piggyback, [place] NaCl 0.9% 00 :07 Administer Medi mariusz [...] maximum allowed dose, contact prescriber .
LORazepam 2019-0 2020- No 2mg 2 mg, Slow U [...] 00 :35 Fri Medical injection 04/06/20 at [facility] 1110, Until 04/06/20 at 1129, Routine, Intra-op sodium 2020-0 2020- No ONCE INTRA Univ ers bicarbonate 04-06 PROCEDURE, i ty of 8.4 % (1 16:10: 16:29 [place] mEq/mL) 00 :35 Fri Medical injection 04/06/20 at [facility] 1110, Until 04/06/20 at 1129, Routine, Intra-op calcium [...] 1109, Until 04/06/20 at 1129, Routine, Intra-op midazolam 2020-0 2020- No ONCE INTRA U nivers (VERSED) 04-06 PROCEDURE, ity of injection 15:39: 16:29 Starting [place] 00 :35 [facility] Medical 04/06/20 at [place] 1039, Until Thu04/06/20 at 1129, Routine, Intra-op midazolam 2020-0 2020- No ONCE INTRA U nivers (VERSED) 04-06 PROCEDURE, ity of injection 15:39: 16:29 Starting [place] 00 :35 [facility] Medical 04/06/20 at [place] 1039, Until Thu04/06/20 at 1129, Routine, Intra-op EPINEPHrine 2020-0 2020- No CONTINUOUS Univers 1 mg in 04-06 PRN, ity of NaCl 0.9% 15:29: 16:29 Starting [place] (NS) 00 :35 Fri Medical infusion 04/06/20 at [facility] 1029, Until Thu04/06/20 at 1129, Routine, Intra-op EPINEPHrine 2020-0 2020- No CONTINUOUS Univers 1 mg in 04-06 PRN, ity of NaCl 0.9% 15:29: 16:29 Starting [place] (NS) 00 :35 Fri Medical infusion 04/06/20 at [facility] 1029, Until Thu04/06/20 at 1129, Routine, Intra-op piperacilli 2020-0 2020- No CONTINUOUS Univers n-tazobacta 04-06 PRN, ity of m (ZOSYN) 14:57: 16:29 Starting [place] 3.375 g in 00 :35 [facility] Medical NaCl 0.9% 04/06/20 at [facility] (NS) 100 mL 0957, infusion Until Discontinu ed, 100 mL, Intra-op piperacilli 2020-0 2020- No CONTINUOUS Univers n-tazobacta 04-06 PRN, ity of m (ZOSYN) 14:57: 16:29 Starting [place] 3.375 g in 00 :35 [facility] Medical NaCl 0.9% 04/06/20 at [facility] (NS) 100 mL 0957, infusion Until Discontinu ed, 100 mL, Intra-op EPINEPHrine 2020-0 2020- No ONCE INTRA Univers 1:1,000 (1 04-06 PROCEDURE, it y of mg/mL) 14:54: 16:29 Starting [place] (ADRENALIN) 00 :35 Fri Medical injection 04/06/20 at [facility] 0954, Until Discontinu ed, Routine, Intra-op EPINEPHrine 2020-0 2020- No ONCE INTRA Univers 1:1,000 (1 04-06 PROCEDURE, it y of mg/mL) 14:54: 16:29 Starting [place] (ADRENALIN) 00 :35 Fri Medical injection 04/06/20 at [facility] 0954, Until Discontinu ed, Routine, Intra-op NORepinephr 2020-0 2020- No CONTINUOUS Univers ine 04-06 PRN, ity of (LEVOPHED) 14:39: 16:29 [place] 4 mg in 00 :35 Fri Medical NaCl 0.9% 04/06/20 at [facility] (NS) 250 mL 0939, infusion Intra-op NORepinephr 2020-0 2020- No CONTINUOUS Univers ine 04-06 PRN, ity of (LEVOPHED) 14:39: 16:29 [place] 4 mg in 00 :35 [facility] NaCl 0.9% 04/06/20 at [facility] (NS) 250 mL 0939, infusion Intra-op rocuronium 2020-0 2020- No IV Push, Un piyush (ZEMURON) 04-06 ONCE INTRA ity of injection 14:36: 16:29 PROCEDURE, [place] 00 :35 Starting [facility] Branch 04/06/20 at 0936, Until Thu04/06/20 at 1129, Routine, Intra-op rocuronium 2020-0 2020- No IV Push, Un piyush (ZEMURON) 04-06 ONCE INTRA ity of injection 14:36: 16:29 PROCEDURE, [place] 00 :35 Starting [facility] Branch 04/06/20 at 0936, Until Thu04/06/20 at 1129, Routine, Intra-op phenylephri 2020-0 2020- No Intravenou Univers ne 04-06 s, ONCE ity of (VAZCULEP) 14:22: 16:29 INTRA [place] injection 00 :35 PROCEDURE, [facility] Starting Branch 04/06/20 at 0922, Until Thu04/06/20 [...] Medical mL (1 %) 04/06/20 at [facility] h injection 0915, Until Thu04/06/20 at 1129, [...] [place] injection 00 :35 Starting Medica l [facility] 04/06/20 at 0915, Until Thu04/06/20 at 1129, Routine, Intra-op propofol IV 2020-0 2020- No ONCE INTRA Univers infusion 04-06 PROCEDURE, ity of 14:15: 16:29 Starting [place] 00 :35 [facility] 04/06/20 at Branch 0915, Until Thu04/06/20 at 1129, Routine, Intra-op lidocaine 2020-0 2020- No ONCE INTRA U nivers 1% 04-06 PROCEDURE, ity of (XYLOCAINE) 14:15: 16:29 Starting [place] 100 mg/10 00 :35 [facility] Medical mL (1 %) 04/06/20 at [facility] h injection 0915, Until Thu04/06/20 at 1129, Routine, Intra-op FENTanyl PF 2020-0 2020- No ONCE INTRA Univers (SUBLIMAZE 04-06 PROCEDURE, it y of (PF)) 14:15: 16:29 Starting [place] injection 00 :35 [facility] 04/06/20 at Branch 0915, Until Thu04/06/20 at 1129, Routine, Intra-op albumin 2020-0 2020- No CONTINUOUS Uni vers (ALBUMINAR- 04-06 PRN, ity of 5) 5 % 14:10: 16:29 Starting [place] injection 00 :35 [facility] 04/06/20 at Branch 0910, Until Discontinu ed, Intra-op lactated 2020-0 2020- No CONTINUOUS Un piyuhs ringers IV 04-06 PRN, ity of infusion 14:10: 16:29 [place] 00 :35 [facility] 04/06/20 at Branch 0910, Until Discontinu ed, Routine, Intra-op albumin 2020-0 2020- No CONTINUOUS Uni vers (ALBUMINAR- 04-06 PRN, ity of 5) 5 % 14:10: 16:29 Starting [place] injection 00 :35 [facility] 04/06/20 at Branch 0910, Until Discontinu ed, Intra-op lactated 2020-0 2020- No CONTINUOUS Un piyush ringers IV 04-06 PRN, ity of infusion 14:10: 16:29 [place] 00 :35 Fri Medical 04/06/20 at Branch 0910, Until Discontinu ed, Routine, Intra-op lactated 2019- 2020- No 1000mL at 999 Univ ers ringers IV 04-06 mL/hr, ity of infusion 12:30: 12:37 1,000 mL, [place] 1,000 mL 00 :00 Intravenou Medic al s, ONCE, 1 Branch dose, 04/06/20 at 0730, Routine methocarbam 2020- No 1000mg 1,000 mg, Univers ol 04-06 Intravenou ity of (ROBAXIN) 03:00: 16:15 s, Q8H, [place] injection 00 :46 First dose Medi mariusz 1,000 mg on [place] Branch 04/05/20 at 2200, Until Discontinu ed, Routine pantoprazol 2019- No 40mg 40 mg, IV [...] n: Perioperat ector Patient D5W 0.45% 2019- 2020- No IV Univers NaCl 04-05 Infusion, [...] Branch 0800, Until Discontinu ed, Routine acetaminoph 2020- No 1000mg 1,000 mg, Univers [...] HELENE MEDELLIN - SURGERY/GE NERAL D5W 0.45% 2020- No IV Univers NaCl 04-04 Infusion, ity of (1/2NS) 1 L 18:00: 19:13 at 42 [place] + KCL 20 00 :30 mL/hr, Medical mEq CONTINUOUS Branch , Starting Thu04/04/20 at 1300, Until Thu04/05/20 at 1413, Routine enoxaparin 2019- 2020- No 40mg 40 [...] Last dose on Thu04/04/20 at 1200, Routine
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 : MAYELA BIA methocarbam 2019-0 2020- No 1000mg 1,000 mg, Univers ol 04-04 Intravenou ity of (ROBAXIN) 03:00: 11:00 s, Q8H, [place] injection 00 :49 First dose Medi mariusz 1,000 mg on Thu Branch 04/03/20 at 2200, Until Discontinu ed, Routine acetaminoph 2020-0 2020- [...] injection 4 26 Starting Medi mariusz mg [facility] Branch 04/03/20 at 1627, Until Discontinu ed, Routine, Nausea and Vomiting (N/V) alvimopan 2019- 2020- No 12mg 12 mg, Unive rs (ENTEREG) 04-03 Oral, ity of capsule 12 13:45: 14:02 ONCE, 1 [place] mg 00 :00 dose, [facility] 04/03/20 at Branch 0845, Routine
Restricte d use approved by: HELENE MEDELLIN - SURGERY/GE NERAL heparin 2019- 2020- No 5000U 5,000 Univers (porcine) 04-03 Units, ity of injection 12:00: 12:02 Subcutaneo [place] 5,000 Units 00 :00 us, ONCE, Med ical 1 dose, Branch [facility] 04/03/20 at 0700, Routine gabapentin 2019- 2020- No 300mg 300 mg, Un piyush [...] Branch , Starting 04/02/20 at 1830, Until Thu04/04/20 at 1259, Routine NaCl 0.9% 2019- 2020- No 1000mL [...] mL/hr, Medical mEq CONTINUOUS Branch , Starting [place] 04/01/20 at 1915, Until 04/02/20 at 1816, Routine acetaminoph 2019- No 650mg 650 mg, U nivers en 04-01 Oral, ity of (TYLENOL) 23:11: 21:31 Q6HPRN, [place] tablet 650 57 :27 Starting Medic al mg [place] 04/01/20 Branch at 1811, Until 04/03/20 at 1631, Routine, Pain (scale 1-3), Pain (scale 4-6) NaCl 0.9% 2019-0 2020- No 1000mL at 999 Uni vers (NS) bolus 04-01 mL/hr, ity of infusion 23:10: 00:18 1,000 mL, [place] 1,000 mL 00 :00 IV Medical Piggyback, Branch ONCE, 1 dose, [place] 04/01/20 at 1815, STAT lactulose 2019-0 2020- No 15mL 15 mL, Unive rs (CEPHULAC) 04-01 Oral, ity of solution 15 16:15: 16:01 ONCE, 1 [place] mL 00 :00 dose, [facility] 04/01/20 at Branch 1115, Routine Polyethylen 2019-0 2020- No 17g 17 g, Univ ers e Glycol 03-31 Oral, BID ity o f 3350 15:45: 23:13 MEALS, [place] (MIRALAX) 00 :14 First dose Medi mariusz powder 17 g on Sat Branch 03/31/20 at 1045, Until Discontinu ed, Routine enoxaparin 2019-0 2019- No 40mg 40 mg, Univ ers [...] 2200, Until Thu04/01/20 at 1813, Routine ondansetron 2019-2019- No 4mg 4 mg, Slow Univers (ZOFRAN [...] Fri Med ical mg 03/30/20 at Branch 181, JOÃO FENTanyl PF 2019- 2020- No 50ug 50 mcg, Un piyush (SUBLIMAZE 03-30 Slow IV ity o f (PF)) 23:15: 22:06 Push, [place] injection 00 :00 ONCE, 1 Medical 50 mcg dose, Fri Branch 03/30/20 at 1815, Routine NaCl 0.9% 2020-0 2020- No 1000mL at 999 Uni vers (NS) bolus 8- 08-07 mL/hr, ity of infusion 22:15: 23:43 1,000 [...] Thu03/28/20 at 0800, Routine metoclopram 2020-0 Yes [id number] 5mg Take 1 Univers tammi HCl 8-05 tablet by ity of (REGLAN) 5 00:00: mouth [place] mg tablet 00 every 12 Medica l (twelve) Branch hours as needed for Nausea and Vomiting (N/V) (constipat ion). metoclopram 2020-0 Yes [id number] 5mg Take 1 Univers tammi HCl 8-05 tablet by ity of (REGLAN) 5 00:00: mouth [place] mg tablet 00 every 12 Medica l (twelve) Branch hours as needed for Nausea and Vomiting (N/V) (constipat ion). metoclopram 2020-0 Yes [id number] 5mg Take 1 Univers tammi HCl 8-05 tablet by ity of (REGLAN) 5 00:00: mouth [place] mg tablet 00 every 12 Medica l (twelve) Branch hours as needed for Nausea and Vomiting (N/V) (constipat ion). metoclopram 2020-0 Yes [id number] 5mg Take 1 Univers tammi HCl 8-05 tablet by ity of (REGLAN) 5 00:00: mouth [place] mg tablet 00 every 12 Medica l (twelve) Branch hours as needed for Nausea and Vomiting (N/V) (constipat ion). metoclopram 2020-0 2020- No [id number] 5mg Take 1 Univers tammi HCl 8-05 [...] IV Push, ity of (PF)) 02:46: Q6HPRN, [place] injection 4 11 Starting Medi mariusz mg 03/25/20 Branch at 2146, Until Discontinu ed, Routine, Nausea and Vomiting (N/V) acetaminoph 2020-0 Yes 650mg 650 mg, Un piyush en 03-26 Oral, ity of (TYLENOL) 02:46: Q6HPRN, [place] tablet 650 05 Starting Medic al mg [place] 03/25/20 Branch at 2146, Until Discontinu ed, Routine, Pain (scale 1-3) iohexol 2020-0 2020- No 100mL 100 mL, Unive rs (OMNIPAQUE 03-26 Intravenou it y of 350 01:30: 01:30 s, ONCE, 1 [place] BULK-100 00 :00 dose, [place] Medica l mL) 03/25/20 at Branch injection 2030, 100 mL Routine NaCl 0.9% 2020-0 2020- No 1000mL at 999 Uni vers (NS) bolus 03-26 mL/hr, ity of infusion 00:45: 00:42 1,000 mL, [place] 1,000 mL 00 :00 IV Medical Infusion, Branch ONCE, 1 dose, [place] 03/25/20 at 1945, JOÃO enoxaparin 2019-0 Yes 40mg 40 mg, Unive rs (LOVENOX) 11 Subcutaneo ity of injection 14:00: us, DAILY, [...] Yes 4mg 4 mg, Slow Univers (ZOFRAN 11 IV Push, ity of (PF)) 04:05: Q6HPRN, [place] injection 4 40 Starting Medi mariusz mg Fri Branch 03/02/20 at 2305, Until Discontinu ed, Routine, Nausea and Vomiting (N/V) acetaminoph 2020-0 Yes 650mg 650 mg, Un piyush en 03-03 Oral, ity of (TYLENOL) 04:05: Q6HPRN, [place] tablet 650 30 Starting Medic al mg Fri Branch 03/02/20 at 2305, Until Discontinu ed, Routine, Pain (scale 1-3) Polyethylen 2020-0 Yes [id number] 17g Take 1 Univers e Glycol 7-07 Packet by ity of 3350 17 00:00: mouth [place] gram powder 00 daily. Medica l Branch Polyethylen 2020-0 Yes [id number] 17g Take 1 Univers e Glycol 7-07 Packet by ity of 3350 17 00:00: mouth [place] gram powder 00 daily. Medica l Branch Polyethylen 2020-0 Yes [id number] 17g Take 1 Univers e Glycol 7-07 Packet by ity of 3350 17 00:00: mouth [place] gram powder 00 daily. Medica l Branch Polyethylen 2020-0 Yes [id number] 17g Take 1 Univers e Glycol 7-07 Packet by ity of 3350 17 00:00: mouth [place] gram powder 00 daily. Medica l Branch Polyethylen 2020-0 2020- No [id number] 17g Take 1 Univers e Glycol 7-07 08-05 Packet by ity o f 3350 17 00:00: 00:00 mouth [place] gram powder 00 :00 daily. Medica l Branch Polyethylen 2020-0 Yes 17g 17 g, Unive rs e Glycol 7-06 Oral, ity of 3350 18:15: DAILY, [place] (MIRALAX) 00 First dose Medi mariusz powder 17 g on [facility] 02/27/20 at 1315, Until Discontinu ed, Routine enoxaparin 2020-0 Yes 40mg 40 mg, Unive rs (LOVENOX) 7-06 Subcutaneo ity of injection 14:00: us, DAILY, [place] 40 mg 00 First dose Medical on [facility] 02/27/20 at 0900, Until Discontinu ed, Routine polyethylen 2020-0 Yes [id number] 17g Take 17 g Univers e glycol 17 7-06 by mouth ity of gram/dose 00:00: daily. [place] powder 00 [facility] polyethylen 2020-0 Yes [id number] 17g Take 17 g Univers e glycol 17 7-06 by mouth ity of gram/dose 00:00: daily. [place] powder 00 [facility] polyethylen 2020-0 Yes [id number] 17g Take 17 g Univers e glycol 17 7-06 by mouth ity of gram/dose 00:00: daily. [place] powder 00 [facility] polyethylen 2020-0 Yes [id number] 17g Take 17 g Univers e glycol 17 7-06 by mouth ity of gram/dose 00:00: daily. [place] powder 00 [facility] polyethylen 2020-0 Yes [id number] 17g Take 17 g Univers e glycol 17 7-06 by mouth ity of gram/dose 00:00: daily. powder [facility] polyethylen 2020-0 Yes [id number] 17g Take 17 g Univers e glycol 17 7-06 by mouth ity of gram/dose 00:00: daily. [place] powder [facility] polyethylen 2020-0 Yes [id number] 17g Take 17 g Univers e glycol 17 7-06 by mouth ity of gram/dose 00:00: daily. powder [facility] polyethylen 2020-0 Yes [id number] 17g Take 17 g Univers e glycol 17 7-06 by mouth ity of gram/dose 00:00: daily. [place] powder [facility] polyethylen 0 2020- No [id number] 17g Take 17 g Univers e glycol 17 7- 09-08 by mouth ity of gram/dose 00:00: 00:00 daily. [place] powder 00 :00 [facility] iohexol 2019- No 120mL 120 mL, Unive rs (OMNIPAQUE 02-2505 Intravenou it y of 350 18:30: 18:30 s, ONCE, 1 [place] BULK-100 00 :00 dose, [place] [facility] mL) 02/26/20 at [place] injection 1330, 120 mL Routine lactated 2019- No 1000mL at 125 Univ ers ringers IV 02-25 07-06 mL/hr, ity of infusion 16:00: 17:57 1,000 mL, [place] 1,000 mL 00 :14 IV Medical Infusion, Branch CONTINUOUS , Starting 02/26/20 at 1100, Until 02/27/20 at 1257, Routine acetaminoph Yes 650mg 650 mg, Un piyush en 705 Oral, ity of (TYLENOL) 15:01: Q6HPRN, [place] tablet 650 46 Starting Medic al mg 02/26/20 Branch at 1001, Until Discontinu ed, Routine, Pain (scale 1-3), Pain (scale 4-6) pantoprazol 2019- 2020- No [id number] 40mg Take 1 Univers e 40 mg EC 6-15 09-14 tablet by ity of tablet 00:00: 04:59 mouth [place] 00 :00 daily for Medical 90 days. Branch pantoprazol 2019-0 2020- No [id number] 40mg Take 1 Univers e 40 mg EC 6-15 09-14 tablet by ity of tablet 00:00: 04:59 mouth [place] 00 :00 daily for Medical 90 days. Branch pantoprazol 2019-0 2019- No [id number] 40mg Take 1 Univers e 40 mg EC 6-15 -14 tablet by ity of tablet 00:00: 04:59 mouth [place] 00 :00 daily for Medical 90 days. Branch pantoprazol 2019-0 2019- No [id number] 40mg Take 1 Univers e 40 mg EC 6-15 -14 tablet by ity of tablet 00:00: 04:59 mouth [place] 00 :00 daily for Medical 90 days. Branch pantoprazol 2019-0 2019- No [id number] 40mg Take 1 Univers e 40 mg EC 6-15 -14 tablet by ity of tablet 00:00: 04:59 mouth [place] 00 :00 daily for Medical 90 days. Branch pantoprazol 2019-0 2019- No [id number] 40mg Take 1 Univers e 40 mg EC 6-15 -14 tablet by ity of tablet 00:00: 04:59 mouth [place] 00 :00 daily for Medical 90 days. Branch pantoprazol 2019-0 2020- No [id number] 40mg Take 1 Univers e 40 mg EC 6-15 -14 tablet by ity of tablet 00:00: 04:59 mouth [place] 00 :00 daily for Medical 90 days. Branch pantoprazol 2019-0 2020- No [id number] 40mg Take 1 Univers e 40 mg EC 6-15 -14 tablet by ity of tablet 00:00: 04:59 mouth [place] 00 :00 daily for Medical 90 days. Branch pantoprazol 2019-0 2020- No [id number] 40mg Take 1 Univers e 40 mg EC 6-15 -14 tablet by ity of tablet 00:00: 04:59 mouth [place] 00 :00 daily for Medical 90 days. Branch pantoprazol 2020-0 2020- No [id number] 40mg Take 1 Univers e 40 mg EC 6-15 09-14 tablet by ity of tablet 00:00: 04:59 mouth [place] 00 :00 daily for Medical 90 days. Branch pantoprazol 2020-0 2020- No [id number] 40mg Take 1 Univers e 40 mg EC 6-15 09-14 tablet by ity of tablet 00:00: 04:59 mouth [place] 00 :00 daily for Medical 90 days. Branch pantoprazol 2020-0 2020- No [id number] 40mg Take 1 Univers e 40 mg EC 6-15 09-14 tablet by ity of tablet 00:00: 04:59 mouth [place] 00 :00 daily for Medical 90 days. Branch pantoprazol 2020-0 2020- No [id number] 40mg Take 1 Univers e 40 mg EC 6-15 09-08 tablet by ity of tablet 00:00: 00:00 mouth [place] 00 :00 daily for Medical 90 days. Branch docusate 2020-0 2020- No [id number] 100mg Take 1 Univers 100 mg 6-14 09-13 capsule by ity of capsule 00:00: 04:59 mouth 2 [place] 00 :00 (two) Medical times Branch daily for 90 days. docusate 2020-0 2020- No [id number] 100mg Take 1 Univers 100 mg 6-14 09-13 capsule by ity of capsule 00:00: 04:59 mouth 2 [place] 00 :00 (two) Medical times Branch daily for 90 days. docusate 2020-0 2020- No [id number] 100mg Take 1 Univers 100 mg 6-14 09-13 capsule by ity of capsule 00:00: 04:59 mouth 2 [place] 00 :00 (two) Medical times Branch daily for 90 days. docusate 2020-0 2020- No [id number] 100mg Take 1 Univers 100 mg 6-14 09-13 capsule by ity of capsule 00:00: 04:59 mouth 2 [place] 00 :00 (two) Medical times Branch daily for 90 days. docusate 2020-0 2020- No [id number] 100mg Take 1 Univers 100 mg 6-14 09-13 capsule by ity of capsule 00:00: 04:59 mouth 2 [place] 00 :00 (two) Medical times Branch daily for 90 days. docusate 2020-0 2020- No [id number] 100mg Take 1 Univers 100 mg 6-14 09-13 capsule by ity of capsule 00:00: 04:59 mouth 2 [place] 00 :00 (two) Medical times Branch daily for 90 days. docusate 2020-0 2020- No [id number] 100mg Take 1 Univers 100 mg 6-14 09-13 capsule by ity of capsule 00:00: 04:59 mouth 2 [place] 00 :00 (two) Medical times Branch daily for 90 days. docusate 2020-0 2020- No [id number] 100mg Take 1 Univers 100 mg -07 05- capsule by ity of capsule 00:00: 04:59 mouth 2 [place] 00 :00 (two) Medical times Branch daily for 90 days. docusate 2020-0 2020- No [id number] 100mg Take 1 Univers 100 mg -07 05- capsule by ity of capsule 00:00: 04:59 mouth 2 [place] 00 :00 (two) Medical times Branch daily for 90 days. docusate 2020-0 2020- No [id number] 100mg Take 1 Univers 100 mg -07 05- capsule by ity of capsule 00:00: 04:59 mouth 2 [place] 00 :00 (two) Medical times Branch daily for 90 days. docusate 2020-0 2020- No [id number] 100mg Take 1 Univers 100 mg -05-06 capsule by ity of capsule 00:00: 04:59 mouth 2 [place] 00 :00 (two) Medical times Branch daily for 90 days. docusate 2020-0 2020- No [id number] 100mg Take 1 Univers 100 mg -07 05- capsule by ity of capsule 00:00: 04:59 mouth 2 [place] 00 :00 (two) Medical times Branch daily for 90 days. docusate 2020-0 2020- No [id number] 100mg Take 1 Univers 100 mg 02-04 capsule by ity of capsule 00:00: 00:00 mouth 2 [place] 00 :00 (two) Medical times Branch daily [...] s mg 00 First dose Medical on [place] Branch 01/29/20 at 0900, Until Discontinu ed, Routine levothyroxi 2020-0 Yes 50ug 50 mcg, Uni vers ne 01-28 Oral, ity of (SYNTHROID) 11:00: QAM-0600, [place] tablet 50 00 First dose Medi maruisz mcg on [facility] 01/29/20 at 0600, Until Discontinu ed, Routine simethicone 2020-0 Yes 80mg 80 mg, Univ ers (GAS RELIEF 01-28 Oral, ity of (SIMETHICON 04:45: PC[place]HS, [place] E[place] 00 First dose Medical chewable on [facility] tablet 80 01/28/20 at mg 2345, Until Discontinu ed, Routine D5W IV 2020-0 2020- No 1000mL at 50 Univers infusion 01-28 06-14 mL/hr, IV ity o f 1,000 mL 03:45: 18:41 Infusion, [place] 00 :31 CONTINUOUS Medical , Starting Branch [facility] 01/28/20 at 2245, Until [place] 02/05/20 at 1341, Routine bisacodyL 2020-0 2020- No 10mg 10 mg, Unive rs (DULCOLAX) 01-28 Rectal, ity o f suppository 03:00: 02:52 [place]CE[place] 1 [place] 10 mg 00 :00 dose, [facility] Medical 01/28/20 at Branch 2200, Routine ondansetron 2020-0 Yes 4mg 4 mg, Slow Univers (ZOFRAN 01-28 IV Push, ity of (PF)) 01:32: Q6HPRN, [place] injection 4 44 Starting Medi mariusz mg 01/28/20 Branch at 2031, Until Discontinu ed, Routine, Nausea and Vomiting (N/V) traMADol 2020-0 2020- No 50mg 50 mg, Univer s (ULTRAM) 01-28 06-09 Oral, ity of tablet 50 01:32: 01:31 Q8HPRN, [place] mg 25 :25 Starting Medical 01/28/20 Branch at 2031, Until 01/30/20 at 2030, Routine, Pain (scale 4-6) acetaminoph 2020-0 Yes 650mg 650 mg, Un piyush en 6-07 Oral, ity of (TYLENOL) 01:32: Q6HPRN, [place] tablet 650 14 Starting Medic al mg 01/28/20 Branch at 2032, Until Discontinu ed, Routine, Pain (scale 1-3) morpHINE 2020-0 2020- No 4mg 4 mg, Slow Un piyush injection 4 01-28 06-06 IV Push, ity of mg 00:45: 23:55 ONCE, 1 [place] 00 :00 dose, Sat Medical 01/28/20 at Branch 1945, STAT iohexol 2020-0 2020- No 100mL 100 mL, Unive rs (OMNIPAQUE 01-28 Intravenou it y of 350 00:00: 00:00 s, ONCE, 1 [place] BULK-100 00 :00 dose, Sat Medica l mL) 01/28/20 at [place] injection 1900, 100 mL Routine ondansetron 2020-0 [...] IV Push, ity of mg 06:14: Q6HPRN, [place] 00 Starting Medical Thu01/25/20 Branch at 0114, Until Discontinu ed, Routine, Pain (scale 7-10) proCHLORper 2020-0 Yes 10mg 10 mg, Univ ers azine 01-24 Slow IV ity of (COMPAZINE) 06:12: Push, [place] injection 17 Q6HPRN, Medical 10 mg Starting Branch 01/25/20 at 0112, Until Discontinu ed, Routine, Nausea and Vomiting (N/V) iohexol 2019-2019- No 100mL 100 mL, Unive rs (OMNIPAQUE 01-24 Intravenou it y of 350 02:15: 02:11 s, ONCE, 1 [place] BULK-100 00 :00 dose, Tue Medica l mL) 01/24/20 at [place] injection 2114, 100 mL Routine morpHINE 2019- No 4mg 4 mg, Slow Un piyush injection 4 01-24 IV Push, ity of mg 01:45: 00:43 ONCE, 1 [place] 00 :00 dose, Tue Medical 01/24/20 at Branch 2044, Routine ondansetron 2019- No 4mg 4 mg, Slow Univers (ZOFRAN 01-24 IV Push, ity of (PF)) 00:45: 00:58 Administer [place] injection 4 00 :00 over 15 Medic al mg Minutes, Branch ONCE, 1 dose, 01/24/20 at 1945, STAT NaCl 0.9% 2019- No 1000mL at 999 Uni vers (NS) bolus 01-24 mL/hr, ity of infusion 00:45: 01:15 1,000 mL, Javi as 1,000 mL 00 :00 IV Medical Infusion, Branch ONCE, 1 dose, 01/24/20 at 1945, JOÃO mineral oil 2019- 2020- No [id number] 30mL Take 30 mL Univers oral liquid 12-11 05-05 by mouth ity of 00:00: 04:59 daily for [place] 00 :00 14 days. Medical Branch tamsulosin 2019-0 Yes .4mg QD Take [...] Take 1 H arris B-1, 100 mg 04-14- abuse, in tablet by Health tablet 00:00: 00:00 remission mouth 00 :00 daily. multivitami 2021- No Alcohol 1{tbl} QD Take 1 [place] n (DAILY 04-14 abuse, in tablet by Health Food and Beverage) 00:00: 00:00 remission mouth tablet 00 :00 daily. thiamine, 2021- No Alcohol 100mg QD Take 1 H arris B-1, 100 mg 04-14-21 abuse, in tablet by Health tablet 00:00: 00:00 remission mouth 00 :00 daily. multivitami 2021- No Alcohol 1{tbl} QD Take 1 [place] n (DAILY 04-14 abuse, in tablet by [employer] [employer]) 00:00: 00:00 remission mouth tablet 00 :00 daily. thiamine, 2021- No Alcohol 100mg QD Take 1 H arris B-1, 100 mg 04-14- abuse, in tablet by Health tablet 00:00: [...] Immunizations Ordered Filled Immunization Date Status Comments [facility] e Immunization Name Name Influenza Virus 2021-06-04 Completed Universit y of Vaccine Quad IM, 00:00:00 [place] Me dical Preserv and ABX Branch Free 2-64 YRS Influenza Virus 2021-06-04 Completed Universit y of Vaccine Quad IM, 00:00:00 [place] Me dical Preserv and ABX Branch Free 6 MO-64 YRS Influenza Virus 2021-06-04 Completed Universit y of Vaccine Quad IM, 00:00:00 [place] Me dical Preserv and ABX Branch Free 6 MO-64 YRS Influenza Virus 2021-06-04 Completed Universit y of Vaccine Quad IM, 00:00:00 [place] Me dical Preserv and ABX Branch Free [...] Universit y of Vaccine Quad IM, 00:00:00 [facility] dical Preserv and ABX Branch Free 6 MO-64 YRS Influenza Virus 2021-06-04 Completed Universit y of Vaccine Quad IM, 00:00:00 [facility] dical Preserv and ABX Branch Free 6 MO-64 YRS Influenza Virus 2020-08-24 Completed Universit y of Vaccine Quad .5 mL 00:00:00 [place] Medical IM 6+ MO Branch Influenza Virus 2020-08-24 Completed Universit y of Vaccine Quad .5 mL 00:00:00 [place] Medical IM 6+ MO Branch Influenza Virus 2020-08-24 Completed Universit y of Vaccine Quad .5 mL 00:00:00 [place] Medical IM 6+ MO Branch Influenza Virus 2020-08-24 Completed Universit y of Vaccine Quad .5 mL 00:00:00 [facility] IM 6+ MO Branch Influenza Virus 2020-08-24 Completed Universit y of Vaccine Quad .5 mL 00:00:00 [place] Medical IM 6+ MO Branch Influenza Virus 2020-08-24 Completed Universit y of Vaccine Quad .5 mL 00:00:00 [facility] IM 6+ MO Branch Influenza Virus 2020-08-24 Completed Universit y of Vaccine Quad .5 mL 00:00:00 [place] Medical IM 6+ MO Branch Influenza Virus 2020-08-24 Completed Universit y of Vaccine Quad .5 mL 00:00:00 [place] Medical IM 6+ MO Branch Influenza Virus 2020-08-24 Completed Universit y of Vaccine Quad .5 mL 00:00:00 [place] Medical IM 6+ MO Branch Influenza Virus 2020-08-24 Completed Universit y of Vaccine Quad .5 mL 00:00:00 [place] Medical IM 6+ MO Branch Influenza Virus 2020-08-24 Completed Universit y of Vaccine Quad .5 mL 00:00:00 [place] Medical IM 6+ MO Branch Influenza Virus 2020-08-24 Completed Universit y of Vaccine Quad .5 mL 00:00:00 [place] Medical IM 6+ MO Branch Influenza Virus 2020-08-24 Completed Universit y of Vaccine Quad .5 mL 00:00:00 [place] Medical IM 6+ MO Branch Influenza Virus 2020-08-24 Completed Universit y of Vaccine Quad .5 mL 00:00:00 [place] Medical IM 6+ MO Branch Influenza Virus [...] y of Vaccine Quad .5 mL 00:00:00 [place] Medical IM 6+ MO Branch Influenza Virus 2020-08-24 Completed Universit y of Vaccine Quad .5 mL 00:00:00 [place] Medical IM 6+ MO Branch PPD 2017-04-14 Completed [facility] 00:00:00 PPD 2017-04-14 Completed [facility] 00:00:00 PPD 2017-04-14 Completed [facility] 00:00:00 PPD 2017-04-14 Completed [facility] 00:00:00 Influenza Virus 2016-05-16 Completed Universit y of Vaccine Quad IM 3+ 00:00:00 [facility] Influenza Virus 2016-05-16 Completed Universit y of Vaccine Quad IM 3+ 00:00:00 [facility] Influenza Virus 2016-05-16 Completed Universit y of Vaccine Quad IM 3+ 00:00:00 [facility] Influenza Virus 2016-05-16 Completed Universit y of Vaccine Quad IM 3+ 00:00:00 [facility] Influenza Virus 2016-05-16 Completed Universit y of Vaccine Quad IM 3+ 00:00:00 [facility] Influenza Virus 2016-05-16 Completed Universit y of Vaccine Quad IM 3+ 00:00:00 [facility] Influenza Virus 2016-05-16 Completed Universit y of Vaccine Quad IM 3+ 00:00:00 [facility] Influenza Virus 2016-05-16 Completed Universit y of Vaccine Quad IM 3+ 00:00:00 [facility] Influenza Virus 2016-05-16 Completed Universit y of Vaccine Quad IM 3+ 00:00:00 [facility] Influenza Virus 2016-05-16 Completed Universit y of Vaccine Quad IM 3+ 00:00:00 [facility] Influenza Virus 2016-05-16 Completed Universit y of Vaccine Quad IM 3+ 00:00:00 [facility] Influenza Virus 2016-05-16 Completed Universit y of Vaccine Quad IM 3+ 00:00:00 [facility] Influenza Virus 2016-05-16 Completed Universit y of Vaccine Quad IM 3+ 00:00:00 [facility] Influenza Virus 2016-05-16 Completed Universit y of Vaccine Quad IM 3+ 00:00:00 [facility] Influenza Virus 2016-05-16 Completed Universit y of Vaccine Quad IM 3+ 00:00:00 [facility] Influenza Virus 2016-05-16 Completed Universit y of Vaccine Quad IM 3+ 00:00:00 [facility] Influenza Virus 2016-05-16 Completed Universit y of Vaccine Quad IM 3+ 00:00:00 [facility] Influenza Virus 2016-05-16 Completed Universit y of Vaccine Quad IM 3+ 00:00:00 [facility] Influenza Virus 2016-05-16 Completed Universit y of Vaccine Quad IM 3+ 00:00:00 [facility] Influenza Virus 2016-05-16 Completed Universit y of Vaccine Quad IM 3+ 00:00:00 [facility] Influenza Virus 2016-05-16 Completed Universit y of Vaccine Quad IM 3+ 00:00:00 [facility] Influenza Virus 2016-05-16 Completed Universit y of Vaccine Quad IM 3+ 00:00:00 [facility] Influenza Virus 2016-05-16 Completed Universit y of Vaccine Quad IM 3+ 00:00:00 [facility] Influenza Virus 2016-05-16 Completed Universit y of Vaccine Quad IM 3+ 00:00:00 [facility] Influenza Virus 2016-05-16 Completed Universit y of Vaccine Quad IM 3+ 00:00:00 [facility] Influenza Virus 2016-05-16 Completed Universit y of Vaccine Quad IM 3+ 00:00:00 [facility] Influenza Virus 2016-05-16 Completed Universit y of Vaccine Quad IM 3+ 00:00:00 [facility] Influenza Virus 2016-05-16 Completed Universit y of Vaccine Quad IM 3+ 00:00:00 [facility] Influenza Virus 2016-05-16 Completed Universit y of Vaccine Quad IM 3+ 00:00:00 [facility] Influenza Virus 2016-05-16 Completed Universit y of Vaccine Quad IM 3+ 00:00:00 [facility] Influenza Virus 2016-05-16 Completed Universit y of Vaccine Quad IM 3+ 00:00:00 [facility] Influenza Virus 2016-05-16 Completed Universit y of Vaccine Quad IM 3+ 00:00:00 [facility] Influenza Virus 2016-05-16 Completed Universit y of Vaccine Quad IM 3+ 00:00:00 [facility] Influenza Virus 2016-05-16 Completed Universit y of Vaccine Quad IM 3+ 00:00:00 [facility] Influenza Virus 2016-05-16 Completed Universit y of Vaccine Quad IM 3+ 00:00:00 [facility] Influenza Virus 2016-05-16 Completed Universit y of Vaccine Quad IM 3+ 00:00:00 [facility] Influenza Virus 2016-05-16 Completed Universit y of Vaccine Quad IM 3+ 00:00:00 [facility] Influenza Virus 2016-05-16 Completed Universit y of Vaccine Quad IM 3+ 00:00:00 [facility] Influenza Virus 2016-05-16 Completed Universit y of Vaccine Quad IM 3+ 00:00:00 [facility] Influenza Virus 2016-05-16 Completed Universit y of Vaccine Quad IM 3+ 00:00:00 [facility] Influenza Virus 2016-05-16 Completed Universit y of Vaccine Quad IM 3+ 00:00:00 [facility] Influenza Virus 2016-05-16 Completed Universit y of Vaccine Quad IM 3+ 00:00:00 [facility] Influenza Virus 2016-05-16 Completed Universit y of Vaccine Quad IM 3+ 00:00:00 [facility] Influenza Virus 2016-05-16 Completed Universit y of Vaccine Quad IM 3+ 00:00:00 [facility] Influenza Virus 2016-05-16 Completed Universit y of Vaccine Quad IM 3+ 00:00:00 [facility] Influenza Virus 2016-05-16 Completed Universit y of Vaccine Quad IM 3+ 00:00:00 [facility] Influenza Virus 2016-05-16 Completed Universit y of Vaccine Quad IM 3+ 00:00:00 [facility] Influenza Virus 2016-05-16 Completed Universit y of Vaccine Quad IM 3+ 00:00:00 [facility] Influenza Virus 2016-05-16 Completed Universit y of Vaccine Quad IM 3+ 00:00:00 [facility] Influenza Virus 2016-05-16 Completed Universit y of Vaccine Quad IM 3+ 00:00:00 [facility] Influenza Virus 2016-05-16 Completed Universit y of Vaccine Quad IM 3+ 00:00:00 [facility] Influenza Virus 2016-05-16 Completed Universit y of Vaccine Quad IM 3+ 00:00:00 [facility] Influenza Virus 2016-05-16 Completed Universit y of Vaccine Quad IM 3+ 00:00:00 [facility] Influenza Virus 2016-05-16 Completed Universit y of Vaccine Quad IM 3+ 00:00:00 [facility] Influenza Virus 2016-05-16 Completed Universit y of Vaccine Quad IM 3+ 00:00:00 [facility] Influenza Virus 2016-05-16 Completed Universit y of Vaccine Quad IM 3+ 00:00:00 [facility] Influenza Virus 2016-05-16 Completed Universit y of Vaccine Quad IM 3+ 00:00:00 [facility] Influenza Virus 2016-05-16 Completed Universit y of Vaccine Quad IM 3+ 00:00:00 [facility] Influenza Virus 2016-05-16 Completed Universit y of Vaccine Quad IM 3+ 00:00:00 [facility] Influenza Virus 2016-05-16 Completed Universit y of Vaccine Quad IM 3+ 00:00:00 [facility] Influenza Virus 2016-05-16 Completed Universit y of Vaccine Quad IM 3+ 00:00:00 [facility] Influenza Virus 2016-05-16 Completed Universit y of Vaccine Quad IM 3+ 00:00:00 [facility] Influenza Virus 2016-05-16 Completed Universit y of Vaccine Quad IM 3+ 00:00:00 [facility] Influenza Virus 2016-05-16 Completed Universit y of Vaccine Quad IM 3+ 00:00:00 [facility] Influenza Virus 2016-05-16 Completed Universit y of Vaccine Quad IM 3+ 00:00:00 [facility] Influenza Virus 2016-05-16 Completed Universit y of Vaccine Quad IM 3+ 00:00:00 [facility] Influenza Virus 2016-05-16 Completed Universit y of Vaccine Quad IM 3+ 00:00:00 [facility] Influenza Virus 2016-05-16 Completed Universit y of Vaccine Quad IM 3+ 00:00:00 [facility] Influenza Virus 2016-05-16 Completed Universit y of Vaccine Quad IM 3+ 00:00:00 [facility] Influenza Virus 2016-05-16 Completed Universit y of Vaccine Quad IM 3+ 00:00:00 [facility] Influenza Virus 2016-05-16 Completed Universit y of Vaccine Quad IM 3+ 00:00:00 [facility] Influenza Virus 2016-05-16 Completed Universit y of Vaccine Quad IM 3+ 00:00:00 [facility] Influenza Virus 2016-05-16 Completed Universit y of Vaccine Quad IM 3+ 00:00:00 [facility] Vital Signs Vital Name Observation Time Observation Value Comments Source Systolic blood 2022-04-10 115 mm[Hg] [place] of pressure 05:05:13 [facility] Diastolic blood 2022-04-10 93 mm[Hg] [place] o f pressure 05:05:13 [facility] Heart rate 2022-04-10 87 /min [facility] 05:05:13 [facility] Respiratory rate 2022-04-10 15 /min [facility] 05:05:13 [facility] Oxygen saturation 2022-04-10 100 /min [facility] Arterial blood 05:05:13 [facility] by Pulse oximetry [place] Body temperature 2022-04-10 36.61 Tasia [facility] 01:35:00 [facility] Body height 2022-04-10 185.4 cm [facility] 01:35:00 [facility] Body weight 2022-04-10 68.04 kg [facility] 01:35:00 [facility] BMI 2022-04-10 19.79 kg/m2 University of 01:35:00 [facility] Systolic blood 2022-04-08 86 mm[Hg] University of pressure 13:00:00 [facility] Diastolic blood 2022-04-08 75 mm[Hg] University o f pressure 13:00:00 [facility] Heart rate 2022-04-08 61 /min University of 13:00:00 [facility] Body temperature 2022-04-08 35.67 Tasia University of 13:00:00 [facility] Respiratory rate 2022-04-08 17 /min University of 13:00:00 [facility] Oxygen saturation 2022-04-08 95 /min University of in Arterial blood 13:00:00 [facility] mariusz by Pulse oximetry Branch Body weight 2022-04-06 72.984 kg University of 08:20:00 [facility] BMI 2022-04-06 21.23 kg/m2 University of 08:20:00 [facility] Body height 2022-04-02 185.4 cm University of 16:37:00 [facility] HEIGHT 2022-03-06 185.4 cm 12:05:00 WEIGHT 2022-03-06 65.772 kg 12:05:00 HEIGHT 2022-03-06 185.4 cm 12:05:00 WEIGHT 2022-03-06 65.772 kg 12:05:00 HEIGHT 2022-03-06 185.4 cm 12:05:00 WEIGHT 2022-03-06 65.772 kg 12:05:00 Systolic blood 2021-09-14 106 mm[Hg] University of pressure 03:17:00 [facility] Diastolic blood 2021-09-14 55 mm[Hg] University o f pressure 03:17:00 [facility] Heart rate 2021-09-14 86 /min University of 03:17:00 [facility] Body temperature 2021-09-14 36.89 Tasia [place] of 03:17:00 [facility] Respiratory rate 2021-09-14 18 /min University of 03:17:00 [facility] Oxygen saturation 2021-09-14 98 /min University of in Arterial blood 03:17:00 [place] Medi mariusz by Pulse oximetry Branch Systolic blood 2021-09-12 90 mm[Hg] University of pressure 22:20:00 [facility] Diastolic blood 2021-09-12 66 mm[Hg] University o f pressure 22:20:00 [facility] Heart rate 2021-09-12 97 /min University of 22:20:00 [facility] Body temperature 2021-09-12 36.61 Tasia University of 22:20:00 [facility] Respiratory rate 2021-09-12 16 /min University of 22:20:00 [facility] Oxygen saturation 2021-09-12 98 /min University of in Arterial blood 22:20:00 [facility] by Pulse oximetry Branch Body weight 2021-09-12 68.04 kg University of 20:25:00 [facility] BMI 2021-09-12 19.79 kg/m2 University of 20:25:00 [facility] Systolic blood 2021-09-12 103 mm[Hg] University of pressure 13:29:00 [facility] Diastolic blood 2021-09-12 67 mm[Hg] University o f pressure 13:29:00 [facility] Heart rate 2021-09-12 91 /min University of 13:29:00 [facility] Body temperature 2021-09-12 36.72 Tasia University of 13:29:00 [facility] Respiratory rate 2021-09-12 33 /min University of 13:29:00 [facility] Oxygen saturation 2021-09-12 98 /min University of in Arterial blood 13:29:00 [facility] by Pulse oximetry Branch Body weight 2021-09-12 68.04 kg University of 12:17:00 [facility] BMI 2021-09-12 19.79 kg/m2 University [facility] 12:17:00 [facility] [facility] Systolic blood 2021-09-09 100 mm[Hg] [facility] pressure 04:59:00 [facility] Diastolic blood 2021-09-09 60 mm[Hg] [facility] 04:59:00 [facility] Heart rate 2021-09-09 85 /min [facility] of 04:59:00 [facility] Body temperature 2021-09-09 36.5 Tasia [facility] 04:59:00 [facility] Respiratory rate 2021-09-09 16 /min [facility] 04:59:00 [facility] Body height 2021-09-09 185.4 cm University of 04:59:00 [facility] Body weight 2021-09-09 68.04 kg University of 04:59:00 [facility] BMI 2021-09-09 19.79 kg/m2 University of 04:59:00 [facility] Oxygen saturation 2021-09-09 98 /min [facility] in Arterial blood 04:59:00 [facility] Systolic blood 2021-09-08 129 mm[Hg] [facility] pressure 05:42:00 [facility] Diastolic blood 2021-09-08 69 mm[Hg] [facility] 05:42:00 [facility] Heart rate 2021-09-08 85 /min [facility] of 05:42:00 [facility] Respiratory rate 2021-09-08 17 /min [facility] of 05:42:00 [facility] Oxygen saturation 2021-09-08 98 /min [facility] in Arterial blood 05:42:00 [facility] Body temperature 2021-09-08 37.44 Tasia [facility] 01:22:00 [facility] Body weight 2021-09-08 68 kg University of 01:22:00 [facility] BMI 2021-09-08 19.78 kg/m2 [facility] 01:22:00 [facility] Systolic blood 2021-09-06 123 mm[Hg] [facility] pressure 21:33:00 [facility] Diastolic blood 2021-09-06 65 mm[Hg] [facility] 21:33:00 [facility] Heart rate 2021-09-06 91 /min [facility] 21:33:00 [facility] Body temperature 2021-09-06 36.39 Tasia [facility] 21:33:00 [facility] Respiratory rate 2021-09-06 18 /min [facility] of 21:33:00 [facility] Body weight 2021-09-06 68.04 kg University of 21:33:00 [facility] BMI 2021-09-06 19.79 kg/m2 [facility] 21:33:00 [facility] Oxygen saturation 2021-09-06 100 /min [facility] in Arterial blood 21:33:00 [facility] Systolic blood 2021-09-05 99 mm[Hg] [facility] 17:16:00 [facility] Diastolic blood 2021-09-05 62 mm[Hg] [facility] 17:16:00 [facility] Heart rate 2021-09-05 78 /min [facility] 17:16:00 [facility] Body temperature 2021-09-05 36.39 Tasia [facility] 17:16:00 [facility] Respiratory rate 2021-09-05 17 /min [facility] of 17:16:00 [facility] Oxygen saturation 2021-09-05 95 /min [facility] in Arterial blood 17:16:00 [facility] Body height 2021-08-31 185.4 cm University of 07:29:00 [facility] Body weight 2021-08-31 68.04 kg University of 07:29:00 [facility] BMI 2021-08-31 19.79 kg/m2 [facility] of 07:29:00 [facility] Systolic blood 2021-09-03 111 mm[Hg] [facility] pressure 15:59:00 [facility] Diastolic blood 2021-09-03 65 mm[Hg] [facility] pressure 15:59:00 [facility] Heart rate 2021-09-03 75 /min [facility] of 15:59:00 [facility] Body temperature 2021-09-03 35.72 Tasia [facility] 15:59:00 [facility] Respiratory rate 2021-09-03 18 /min [facility] of 15:59:00 [facility] Oxygen saturation 2021-09-03 100 /min [facility] in Arterial blood 15:59:00 [facility] by [facility] o[facility] Body height 2021-08-31 185.4 cm [facility] 07:29:00 [facility] Body weight 2021-08-31 68.04 kg University of 07:29:00 [facility] BMI 2021-08-31 19.79 kg/m2 [facility] of 07:29:00 [facility] Systolic blood 2021-08-29 111 mm[Hg] [facility] pressure 23:12:00 [facility] Diastolic blood 2021-08-29 73 mm[Hg] [facility] pressure 23:12:00 [facility] Heart rate 2021-08-29 95 /min [facility] of 23:12:00 [facility] Body temperature 2021-08-29 37 Tasia [facility] 23:12:00 [facility] Respiratory rate 2021-08-29 18 /min [facility] of 23:12:00 [facility] Body weight 2021-08-29 68.04 kg University of 23:12:00 [facility] BMI 2021-08-29 19.79 kg/m2 University of 23:12:00 [facility] Oxygen saturation 2021-08-29 99 /min [facility] in Arterial blood 23:12:00 [facility] Systolic blood 2021-08-05 92 mm[Hg] [facility] pressure 10:56:00 [facility] Diastolic blood 2021-08-05 75 mm[Hg] [facility] pressure 10:56:00 [facility] Heart rate 2021-08-05 67 /min [facility] of 10:56:00 [facility] Body temperature 2021-08-05 36.22 Tasia [facility] 10:56:00 [facility] Oxygen saturation 2021-08-05 93 /min [facility] in Arterial blood 10:56:00 [facility] Respiratory rate 2021-08-05 16 /min [facility] of 06:24:00 [facility] Body height 2021-07-30 185.4 cm University of 09:49:00 [facility] Body weight 2021-07-30 65.772 kg University of 09:49:00 [facility] BMI 2021-07-30 19.13 kg/m2 [facility] of 09:49:00 [facility] Systolic blood 2021-07-26 107 mm[Hg] [facility] pressure 17:32:00 [facility] Diastolic blood 2021-07-26 69 mm[Hg] [facility] pressure 17:32:00 [facility] Heart rate 2021-07-26 70 /min [facility] of 17:32:00 [facility] Body temperature 2021-07-26 36.39 Tasia [facility] 17:32:00 [facility] Respiratory rate 2021-07-26 16 /min [facility] of 17:32:00 [facility] Oxygen saturation 2021-07-26 96 /min [facility] in Arterial blood 17:32:00 [facility] Body height 2021-07-23 185.4 cm [facility] of 08:40:00 [facility] Body weight 2021-07-23 84.5 kg University of 08:40:00 [facility] BMI 2021-07-23 24.58 kg/m2 University of 08:40:00 [facility] Systolic blood 2021-06-04 95 mm[Hg] [facility] pressure 16:20:00 [facility] Diastolic blood 2021-06-04 60 mm[Hg] [facility] pressure 16:20:00 [facility] Heart rate 2021-06-04 61 /min [facility] of 16:20:00 [facility] Body temperature 2021-06-04 36.17 Tasia [facility] 16:20:00 [facility] Respiratory rate 2021-06-04 18 /min [facility] of 16:20:00 [facility] Oxygen saturation 2021-06-04 100 /min [facility] in Arterial blood 16:20:00 [facility] Body weight 2021-06-01 65.772 kg University of 19:00:00 [facility] BMI 2021-06-01 19.13 kg/m2 [facility] of 19:00:00 [facility] Body height 2021-05-31 185.4 cm University of 22:12:00 [facility] Systolic blood 2021-05-21 101 mm[Hg] [facility] pressure 20:21:00 [facility] Diastolic blood 2021-05-21 68 mm[Hg] [facility] pressure 20:21:00 [facility] Heart rate 2021-05-21 74 /min [facility] of 20:21:00 [facility] Body temperature 2021-05-21 36.56 Tasia [facility] 20:21:00 [facility] Respiratory rate 2021-05-21 18 /min [facility] of 20:21:00 [facility] Oxygen saturation 2021-05-21 99 /min [facility] in Arterial blood 20:21:00 [facility] Body height 2021-05-21 185.4 cm [facility] of 00:15:00 [facility] Body weight 2021-05-21 65.772 kg [facility] of 00:15:00 [facility] BMI 2021-05-21 19.13 kg/m2 [facility] of 00:15:00 [facility] Systolic blood 2021-05-09 101 mm[Hg] [facility] pressure 16:32:00 [facility] Diastolic blood 2021-05-09 70 mm[Hg] [facility] pressure 16:32:00 [facility] Heart rate 2021-05-09 69 /min [facility] of 16:32:00 [facility] Body temperature 2021-05-09 36.72 Tasia [facility] 16:32:00 [facility] Respiratory rate 2021-05-09 16 /min [facility] of 16:32:00 [facility] Oxygen saturation 2021-05-09 99 /min [facility] in Arterial blood 16:32:00 [facility] Body height 2021-05-08 185.4 cm [facility] of 05:48:00 [facility] Body weight 2021-05-08 80.196 kg University of 05:48:00 [facility] BMI 2021-05-08 23.33 kg/m2 [facility] of 05:48:00 [facility] Heart rate 2020-09-27 89 /min [facility] of 04:25:00 [facility] Respiratory rate 2020-09-27 20 /min [facility] of 04:25:00 [facility] Oxygen saturation 2020-09-27 99 /min [facility] in Arterial blood 04:25:00 [facility] Systolic blood 2020-09-27 103 mm[Hg] [facility] pressure 04:02:00 [facility] Diastolic blood 2020-09-27 78 mm[Hg] [facility] pressure 04:02:00 [facility] Body temperature 2020-09-27 36.72 Tasia [facility] 04:00:00 [facility] Body weight 2020-09-26 79.379 kg University of 22:35:00 [facility] BMI 2020-09-26 23.09 kg/m2 [facility] of 22:35:00 [facility] Systolic blood 2020-08-24 105 mm[Hg] [facility] pressure 17:24:00 [facility] Diastolic blood 2020-08-24 64 mm[Hg] [facility] pressure 17:24:00 [facility] Heart rate 2020-08-24 83 /min [facility] of 17:24:00 [facility] Body temperature 2020-08-24 36.56 Tasia [facility] 17:24:00 [facility] Respiratory rate 2020-08-24 16 /min [facility] of 17:24:00 [facility] Oxygen saturation 2020-08-24 98 /min [facility] in Arterial blood 17:24:00 [facility] Body height 2020-08-23 185.4 cm [facility] of 03:19:00 [facility] Body weight 2020-08-23 79.379 kg University of 03:19:00 [facility] BMI 2020-08-23 23.09 kg/m2 [facility] of 03:19:00 [facility] Systolic blood 2020-07-10 126 mm[Hg] [facility] pressure 01:32:00 [facility] Diastolic blood 2020-07-10 67 mm[Hg] [facility] pressure 01:32:00 [facility] Heart rate 2020-07-10 92 /min [facility] of 01:32:00 [facility] Body temperature 2020-07-10 37.17 Tasia University of :32:00 [facility] Respiratory rate 2020-07-10 16 /min University of :32:00 [facility] Oxygen saturation 2020-07-10 100 /min [facility] in Arterial blood 01:32:00 [facility] Body height 2020-07-09 154.9 cm University of 22:23:00 [facility] Body weight 2020-07-09 68.04 kg University of ::00 [facility] BMI 2020-07-09 28.34 kg/m2 University of 22:23:00 [facility] Systolic blood 2020-06-05 106 mm[Hg] [facility] pressure 15:00:00 [facility] Diastolic blood 2020-06-05 72 mm[Hg] [facility] pressure 15:00:00 [facility] Heart rate 2020-06-05 84 /min [facility] of 15:00:00 [facility] Respiratory rate 2020-06-05 18 /min [facility] of 15:00:00 [facility] Oxygen saturation 2020-06-05 100 /min [facility] in Arterial blood 15:00:00 [facility] Body temperature 2020-06-05 36.61 Tasia [facility] 14:54:52 [facility] Body weight 2020-06-05 65.772 kg University of 11:48:00 [facility] BMI 2020-06-05 19.13 kg/m2 [facility] of 11:48:00 [facility] Systolic blood 2020-06-04 130 mm[Hg] [facility] pressure 18:30:00 [facility] Diastolic blood 2020-06-04 84 mm[Hg] [facility] pressure 18:30:00 [facility] Heart rate 2020-06-04 72 /min [facility] of 18:30:00 [facility] Body temperature 2020-06-04 36.72 Tasia [facility] 18:30:00 [facility] Respiratory rate 2020-06-04 16 /min [facility] of 18:30:00 [facility] Oxygen saturation 2020-06-04 98 /min [facility] in Arterial blood 18:30:00 [facility] Systolic blood 2020-05-31 90 mm[Hg] [facility] pressure 19:59:00 [facility] Diastolic blood 2020-05-31 59 mm[Hg] [facility] pressure 19:59:00 [facility] Heart rate 2020-05-31 88 /min [facility] of 19:59:00 [facility] Body temperature 2020-05-31 36.78 Tasia [facility] 19:59:00 [facility] Respiratory rate 2020-05-31 16 /min [facility] of 19:59:00 [facility] Oxygen saturation 2020-05-31 98 /min [facility] in Arterial blood 19:59:00 [facility] Body height 2020-05-30 185.4 cm University of 18:29:00 [facility] Body weight 2020-05-30 69.5 kg weighed in bed University of 18:29:00 [facility] BMI 2020-05-30 20.21 kg/m2 University of 18:29:00 [facility] Systolic blood 2020-05-22 100 mm[Hg] [facility] pressure 04:38:00 [facility] Diastolic blood 2020-05-22 71 mm[Hg] [facility] pressure 04:38:00 [facility] Heart rate 2020-05-22 90 /min University 04:38:00 [facility] Respiratory rate 2020-05-22 18 /min [facility] of 04:38:00 [facility] Oxygen saturation 2020-05-22 97 /min [facility] in Arterial blood 04:38:00 [facility] Body temperature 2020-05-22 36.83 Tasia [facility] 02:02:11 [facility] Body height 2020-05-22 185.4 cm University of 01:59:00 [facility] Body weight 2020-05-22 65.772 kg University of 01:59:00 [facility] BMI 2020-05-22 19.13 kg/m2 [facility] of 01:59:00 [facility] Systolic blood 2020-05-20 95 mm[Hg] [facility] pressure 18:33:34 [facility] Diastolic blood 2020-05-20 62 mm[Hg] [facility] pressure 18:33:34 [facility] Heart rate 2020-05-20 86 /min [facility] of 18:33:34 [facility] Respiratory rate 2020-05-20 20 /min [facility] of 18:33:34 [facility] Oxygen saturation 2020-05-20 98 /min [facility] in Arterial blood 18:33:34 [facility] Body temperature 2020-05-20 37 Tasia [facility] 12:02:00 [facility] Body weight 2020-05-20 65.8 kg University of 12:02:00 [facility] BMI 2020-05-20 19.14 kg/m2 [facility] of 12:02:00 [facility] Systolic blood 2020-05-20 101 mm[Hg] [facility] pressure 10:58:00 [facility] Diastolic blood 2020-05-20 56 mm[Hg] [facility] pressure 10:58:00 [facility] Heart rate 2020-05-20 79 /min [facility] of 10:58:00 [facility] Body temperature 2020-05-20 37 Tasia [facility] 10:58:00 [facility] Respiratory rate 2020-05-20 16 /min [facility] of 10:58:00 [facility] Oxygen saturation 2020-05-20 99 /min [facility] in Arterial blood 10:58:00 [facility] Body height 2020-05-20 185.4 cm University of 02:36:00 [facility] Body weight 2020-05-20 65.772 kg University of 02:36:00 [facility] BMI 2020-05-20 19.13 kg/m2 [facility] of 02:36:00 [facility] Systolic blood 2020-05-12 93 mm[Hg] [facility] pressure 17:02:00 [facility] Diastolic blood 2020-05-12 61 mm[Hg] [facility] pressure 17:02:00 [facility] Body temperature 2020-05-12 37.06 Tasia [facility] 17:02:00 [facility] Heart rate 2020-05-12 74 /min [facility] of 09:00:00 [facility] Respiratory rate 2020-05-12 18 /min [facility] of 09:00:00 [facility] Oxygen saturation 2020-05-12 95 /min [facility] in Arterial blood 09:00:00 [facility] Body height 2020-05-05 185.4 cm [facility] of 09:05:00 [facility] Body weight 2020-05-05 65.772 kg University of 09:05:00 [facility] BMI 2020-05-05 19.13 kg/m2 [facility] of 09:05:00 [facility] Systolic blood 2020-05-03 107 mm[Hg] [facility] pressure 04:30:00 [facility] Diastolic blood 2020-05-03 62 mm[Hg] [facility] pressure 04:30:00 [facility] Heart rate 2020-05-03 105 /min [facility] of 04:30:00 [facility] Body temperature 2020-05-03 37.22 Tasia [facility] 04:30:00 [facility] Respiratory rate 2020-05-03 14 /min [facility] of 04:30:00 [facility] Body height 2020-05-03 185.4 cm University of 04:30: [facility] Body weight 2020-05-03 65.772 kg University of 04:30:00 [facility] BMI 2020-05-03 19.13 kg/m2 [facility] of 04:30:00 [facility] Systolic blood 2020-05-02 105 mm[Hg] [facility] pressure 12:46:00 [facility] Diastolic blood 2020-05-02 57 mm[Hg] [facility] pressure 12:46:00 [facility] Heart rate 2020-05-02 79 /min [facility] of 12:46:00 [facility] Body temperature 2020-05-02 36.28 Tasia [facility] 12:46:00 [facility] Respiratory rate 2020-05-02 16 /min [facility] of 12:46:00 [facility] Oxygen saturation 2020-05-02 98 /min [facility] in Arterial blood 12:46:00 [facility] Body height 2020-04-16 185.4 cm University of 20:11:00 [facility] Body weight 2020-04-16 79.379 kg University of 20:11:00 [facility] BMI 2020-04-16 23.09 kg/m2 University of 20:11:00 [facility] Respiratory rate 2020-04-06 12 /min [facility] of 16:20:00 [facility] Systolic blood 2020-03-28 125 mm[Hg] [facility] pressure 16:00:00 [facility] Diastolic blood 2020-03-28 87 mm[Hg] [facility] pressure 16:00:00 [facility] Heart rate 2020-03-28 74 /min [facility] of 16:00:00 [facility] Body temperature 2020-03-28 36.44 Tasia [facility] 16:00:00 [facility] Respiratory rate 2020-03-28 18 /min [facility] of 16:00:00 [facility] Oxygen saturation 2020-03-28 100 /min [facility] in Arterial blood 16:00:00 [facility] Body height 2020-03-26 185.4 cm University of 03:49:00 [facility] Body weight 2020-03-26 74.844 kg University of 03:49:00 [facility] BMI 2020-03-26 21.77 kg/m2 [facility] of 03:49:00 [facility] Systolic blood 2020-03-05 107 mm[Hg] [facility] pressure 16:00:00 [facility] Diastolic blood 2020-03-05 67 mm[Hg] [facility] pressure 16:00:00 [facility] Heart rate 2020-03-05 56 /min [facility] of 16:00:00 [facility] Body temperature 2020-03-05 36.5 Tasia [facility] 16:00:00 [facility] Respiratory rate 2020-03-05 18 /min [facility] of 16:00:00 [facility] Oxygen saturation 2020-03-05 100 /min [facility] in Arterial blood 16:00:00 [facility] by P[facility] oxim[facility] Body height 2020-03-03 185.4 cm University of 05:49:00 [facility] Body weight 2020-03-03 71.668 kg University of 05:49:00 [facility] BMI 2020-03-03 20.85 kg/m2 [facility] of 05:49:00 [facility] Systolic blood 2020-02-27 100 mm[Hg] [facility] pressure 21:12:00 [facility] Diastolic blood 2020-02-27 74 mm[Hg] [facility] pressure 21:12:00 [facility] Heart rate 2020-02-27 90 /min [facility] of 21:12:00 [facility] Body temperature 2020-02-27 35.78 Tasia [facility] 21:12:00 [facility] Respiratory rate 2020-02-27 19 /min [facility] of 21:12:00 [facility] Oxygen saturation 2020-02-27 99 /min [facility] in Arterial blood 21:12:00 [facility] Body weight 2020-02-26 71.215 kg University of 23:05:00 [facility] BMI 2020-02-26 20.71 kg/m2 University of 23:05:00 [facility] Systolic blood 2020-02-26 132 mm[Hg] [facility] pressure 07:43:00 [facility] Diastolic blood 2020-02-26 71 mm[Hg] [facility] pressure 07:43:00 [facility] Heart rate 2020-02-26 82 /min [facility] of 07:43:00 [facility] Respiratory rate 2020-02-26 18 /min University of 07:43:00 [facility] Oxygen saturation 2020-02-26 100 /min University of in Arterial blood 07:43:00 [place] [facility] by Pulse oximetry Branch Body temperature 2020-02-26 36.94 Tasia University of 04:57:00 [facility] Body height 2020-02-26 185.4 cm University of 02:30:00 [facility] Body weight 2020-02-26 68.04 kg University of 02:30:00 [facility] BMI 2020-02-26 19.79 kg/m2 University of 02:30:00 [facility] Systolic blood 2020-02-05 100 mm[Hg] University of pressure 16:00:00 [facility] Diastolic blood 2020-02-05 61 mm[Hg] University o f pressure 16:00:00 [facility] Heart rate 2020-02-05 60 /min University of 16:00:00 [facility] Body temperature 2020-02-05 36.67 Tasia University of 16:00:00 [facility] Respiratory rate 2020-02-05 17 /min University of 16:00:00 [facility] Oxygen saturation 2020-02-05 98 /min University of in Arterial blood 16:00:00 [facility] mariusz by Pulse oximetry Branch Body height 2020-01-28 185.4 cm University of 23:13:00 [facility] Body weight 2020-01-28 68.04 kg University of 23:13:00 [facility] BMI 2020-01-28 19.79 kg/m2 University of 23:13:00 [facility] Systolic blood 2020-02-05 100 mm[Hg] University of pressure 16:00:00 [facility] Diastolic blood 2020-02-05 61 mm[Hg] University o f pressure 16:00:00 [facility] Heart rate 2020-02-05 60 /min University of 16:00:00 [facility] Body temperature 2020-02-05 36.67 Tasia University of 16:00:00 [facility] Respiratory rate 2020-02-05 17 /min University of 16:00:00 [facility] Oxygen saturation 2020-02-05 98 /min University of in Arterial blood 16:00:00 [place] [facility] Pulse oximetry [facility] Body height 2020-01-28 185.4 cm University of 23:13:00 [facility] Body weight 2020-01-28 68.04 kg University of 23:13:00 [facility] BMI 2020-01-28 19.79 kg/m2 University of 23:13:00 [facility] Systolic blood 2020-01-27 114 mm[Hg] University of pressure 00:32:00 [facility] Diastolic blood 2020-01-27 66 mm[Hg] University o f pressure 00:32:00 [facility] Heart rate 2020-01-27 73 /min University of 00:32:00 [facility] Body temperature 2020-01-27 36.67 Tasia University of 00:32:00 [facility] Respiratory rate 2020-01-27 18 /min University of 00:32:00 [facility] Oxygen saturation 2020-01-27 97 /min University of in Arterial blood 00:32:00 [facility] mariusz by Pulse oximetry Branch Body height 2020-01-24 185.4 cm University of 23:55:00 [facility] Body weight 2020-01-24 68.04 kg University of :55:00 [facility] BMI 2020-01-24 19.79 kg/m2 University of :55:00 [facility] Systolic blood 2020-01-27 114 mm[Hg] University of pressure 00:32:00 [facility] Diastolic blood 2020-01-27 66 mm[Hg] University o f pressure 00:32:00 [facility] Heart rate 2020-01-27 73 /min University of 00:32:00 [facility] Body temperature 2020-01-27 36.67 Tasia University of 00:32:00 [facility] Respiratory rate 2020-01-27 18 /min University of 00:32:00 [facility] Oxygen saturation 2020-01-27 97 /min University of in Arterial blood 00:32:00 [facility] mariusz by Pulse oximetry Branch Body height 2020-01-24 185.4 cm University of 23:55:00 [facility] Body weight 2020-01-24 68.04 kg University of 23:55:00 [facility] BMI 2020-01-24 19.79 kg/m2 University of 23:55:00 [facility] Body temperature 2019-12-13 36.72 Tasia University of 02:56:16 [facility] Systolic blood 2019-12-13 114 mm[Hg] University of pressure 01:57:00 [facility] Diastolic blood 2019-12-13 77 mm[Hg] University o f pressure 01:57:00 [facility] Heart rate 2019-12-13 75 /min [facility] :57:00 [facility] Respiratory rate 2019-12-13 20 /min [facility] :57:00 [facility] Body height 2019-12-13 185.4 cm [facility] :57:00 [facility] Body weight 2019-12-13 68.04 kg [facility] :57:00 [facility] BMI 2019-12-13 19.79 kg/m2 [facility] :57:00 [facility] Oxygen saturation 2019-12-13 97 /min University of in Arterial blood 01:57:00 [place] [facility] Pulse oximetry [facility] Body temperature 2019-12-13 36.72 Tasia [facility] 02:56:16 [facility] Systolic blood 2019-12-13 114 mm[Hg] University of pressure 01:57:00 [facility] Diastolic blood 2019-12-13 77 mm[Hg] University o f pressure 01:57:00 [facility] Heart rate 2019-12-13 75 /min [facility] :57:00 [facility] Respiratory rate 2019-12-13 20 /min [facility] :57:00 [facility] Body height 2019-12-13 185.4 cm [facility] :57:00 [facility] Body weight 2019-12-13 68.04 kg [facility] :57:00 [facility] BMI 2019-12-13 19.79 kg/m2 [facility] :57:00 [facility] Oxygen saturation 2019-12-13 97 /min University of in Arterial blood 01:57:00 [facility] mariusz by Pulse oximetry Branch Systolic blood 2022-03-13 94 mm[Hg] [facility] pressure 15:33:00 Diastolic blood 2022-03-13 62 mm[Hg] [facility] h pressure 15:33:00 Heart rate 2022-03-13 109 /min [facility] 15:33:00 Body temperature 2022-03-13 36.67 Tasia [facility] 15:33:00 Respiratory rate 2022-03-13 20 /min [facility] 15:33:00 Body height 2022-03-13 185.4 cm [facility] 15:33:00 Body weight 2022-03-13 66.679 kg [facility] 15:33:00 BMI 2022-03-13 19.39 kg/m2 [facility] 15:33:00 Oxygen saturation 2022-03-13 100 /min Lynne Michelle [facility] in Arterial blood 15:33:00 by Pulse oximetry Systolic blood 2022-03-09 107 mm[Hg] [facility] pressure 11:00:00 [facility] Diastolic blood 2022-03-09 66 mm[Hg] [facility] pressure 11:00:00 [facility] Heart rate 2022-03-09 58 /min [facility] 11:00:00 [facility] Body temperature 2022-03-[address] [facility] 11:[facility]:00 [facility] Respiratory rate 2022-03-09 16 /min [facility] 11:00:00 [facility] Oxygen saturation 2022-03-09 100 /min [facility] es in Arterial blood 11:00:00 [facility] nter by Pulse oximetry Body height 2022-03-[address] [facility] 12:05:00 [facility] Body weight 2022-03-06 65.772 kg [facility] 12:05:00 [facility] BMI 2022-03-06 19.13 kg/m2 [facility] 12:05:00 [facility] Procedures Procedure Date / Time Performing Clinician Source Performed COMP. METABOLIC PANEL 2022-04-10 03:54:00 Alvarez Austin [facility] ([id number]) [facility] CBC WITH DIFF 2022-04-10 03:49:00 Alvarez Austin [facility] LIPASE 2022-04-10 03:07:00 Alvarez Austin [facility] XR CHEST 2 VW 2022-04-10 02:59:18 Alvarez Austin [facility] COVID-19 (ID NOW RAPID 2022-04-10 02:43:00 Alvarez Austin [facility] TESTING) [facility] PHOSPHORUS 2022-04-08 10:26:00 [facility]UM 2022-04-08 10:26:00 Kurt [facility] BASIC METABOLIC PANEL (NA, 2022-04-08 10:26:00 Shelia Lemus [facility] K, CL, CO2, GLUCOSE, BUN, Medica l Branch CREATININE, CA) CBC WITH DIFF 2022-04-08 10:26:00 [facility] PHOS[facility]US 2022-04-07 09:45:00 [facility] MAGNESIUM 2022-04-07 09:45:00 [facility] BASIC METABOLIC PANEL (NA, 2022-04-07 09:45:00 [facility] [place] K, CL, CO2, GLUCOSE, BUN, Medica l Branch CREATININE, CA) LACTIC ACID WHOLE BLOOD 2022-04-06 09:05:00 Kutr [facility] MAGNESIUM 2022-04-06 09:04[facility] (NA, 2022-04-06 09:04:00 Rolf Lemus niversity [facility] K, CL, CO2, GLUCOSE, BUN, Medica l Branch CREATININE, CA) CBC WITH DIFF 2022-04-06 09:04:00 Kurt [facility] BASIC METABOLIC PANEL (NA, 2022-04-05 08:12:00 Agatha Noonan [facility] [place] K, CL, CO2, GLUCOSE, BUN, Medica l Branch CREATININE, CA) ACUTE CARE VENOUS BLOOD 2022-04-05 08:12:00 [facility] WITH DIFF 2022-04-05 08:12:00 Agatha Noonan [facility] BASIC METABOLIC PANEL (NA, 2022-04-04 09:03:00 Rolf Lemus niversity [facility] K, CL, CO2, GLUCOSE, BUN, Medica l Branch CREATININE, CA) US RETROPERITONEAL LIMITED 2022-04-03 23:10:49 Octavio Macaroi [facility] ACUTE CARE VENOUS BLOOD 2022-04-03 18:33:00 [facility] OSMOLALITY URINE 2022-04-03 17:59:00 Amirah [facility] BASIC METABOLIC PANEL (NA, 2022-04-03 17:59:00 Octavio Macario [facility] K, CL, CO2, GLUCOSE, BUN, Medica l Branch CREATININE, CA) CREATININE, URINE RANDOM 2022-04-03 17:59:00 Octavio Macario [facility] POTASSIUM, URINE RANDOM 2022-04-03 17:59:00 Amirah [facility] SODIUM, URINE RANDOM 2022-04-03 17:59:[address] [facility] MAGNESIUM 2022-04-03 09:29:00 Amirah [facility] OSMOLALITY, SERUM OR 2022-04-03 09:29:00 Amirah [facility] PLASMA [facility] BASIC METABOLIC PANEL (NA, 2022-04-03 09:29:00 Juventino Thomas [facility] K, CL, CO2, GLUCOSE, BUN, Medica l Branch CREATININE, CA) CBC WITH DIFF 2022-04-03 09:29:00 William [facility] CLOSTRIDIUM DIFFICILE 2022-04-03 03:44:00 William Juventino [facility] TOXIN [facility] LACTIC ACID WHOLE BLOOD 2022-04-03 03:38:00 William [facility] LACTIC ACID WHOLE BLOOD 2022-04-03 00:07:00 William [facility] URINE CULTURE 2022-04-02 22:39:00 Aguila Rekha [facility] CT ABDOMEN PELVIS WO 2022-04-02 21:07:00 Rekha Sheehan [facility] CONTRAST [facility] LIPASE 2022-04-02 20:00:00 Aguila [facility] TROPONIN I 2022-04-02 20:00:00 Aguila [facility] HEPATIC FUNCTION PANEL 2022-04-02 20:00:00 Rekha Sheehan [facility] ([id number]) (ALB,T.PRO,BILI Medical Branch T,BU/BC,ALT,AST,ALK PHOS) BASIC METABOLIC PANEL (NA, 2022-04-02 20:00:00 Rekha Sheehan [facility] K, CL, CO2, GLUCOSE, BUN, Medica l Branch CREATININE, CA) URINALYSIS 2022-04-02 20:00:00 Rekha Sheehan [facility] CBC WITH DIFF 2022-04-02 18:20:00 Aguila [facility] COVID-19 (ID NOW RAPID 2022-04-02 18:20:00 Rekha Sheehan [facility] TESTING) Medical Branch LAB ONLY COVID 2022-04-02 18:20:00 Aguila Rekha [facility] INTERPRETATION [facility] XR CHEST 2 VW 2022-04-02 17:29:13 Aguila [facility] HB ECG ROUTINE & RHYTHM 2022-04-02 16:32:43 Rekha Sheehan [facility] CONSENT/REFUSAL FOR 2022-04-02 16:29:46 Doctor Unassigned, [facility] DIAGNOSIS AND TREATMENT [place] [facility] BASIC METABOLIC PANEL (7) 2022-03-07 05:51:00 Romie Kuo I [facility] HEPATIC FUNCTION PANEL 2022-03-07 05:51:00 [facility] CBC W/PLT COUNT & AUTO 2022-03-07 05:51:00 Romie Kuo [facility] CBC W/PLT COUNT & AUTO 2022-03-07 05:51:00 Vidhi KuoAcacia [facility] DIFFERENTIAL [place] RENAL COMPLETE 2022-03-06 18:23:00 Romie Kuo [facility] SARS-COV2/RT-PCR ([facility] & 2022-03-06 17:36:00 Romie Kuo [facility] REF LABS) Center TSH/FREE T4 IF INDICATED 2022-03-06 14:18:00 [facility] T4, FREE 2022-03-06 14:18:00 [facility] 2022-03-06 13:48:12 Jonna [facility] XR CHEST 1 VIEW PORTABLE / 2022-03-06 13:42:00 Aryan Tello [facility] BEDSIDE [facility] B-TYPE NATRIURETIC FACTOR 2022-03-06 13:23:00 Aryan Tello [facility] (BNP) [facility] CBC W/PLT COUNT & AUTO 2022-03-06 13:23:00 Aryan Tello [facility] DIFFERENTIAL [facility] COMPREHENSIVE METABOLIC 2022-03-06 13:23:00 Aryan Tello [facility] PANEL [facility] HIGH SENSITIVITY TROPONIN 2022-03-06 13:23:00 Aryan Tello [facility] MAGNESIUM 2022-03-06 13:23:00 Aryan Tello [facility] PHOSPHORUS 2022-03-06 13:23:00 [facility] LACT[facility] ACID, VENOUS 2022-03-06 13:23:00 Aryan Tello [facility] CREATINE KINASE (CK) 2022-03-06 13:23:00 Aryan Tello [facility] CBC W/PLT COUNT & AUTO 2022-03-06 13:23:00 Aryan Tello [facility] DIFFERENTIAL [facility] ECG 12-LEAD 2022-03-06 12:12:56 Unknown, [facility] ECG 12-LEAD 2022-03-06 12:12:56 Unknown, [facility] ECG 12-LEAD 2022-03-06 12:12:56 Unknown, [facility] EKG-SCANNED 2022-03-06 00:00:00 Provider, [facility] CBC (WITHOUT DIFFERENTIAL) 2022-02-20 05:10:00 Rufino Lazaro [facility] BASIC METABOLIC PANEL 2022-02-20 05:10:00 Rufino Lazaro [facility] MAGNESIUM 2022-02-20 05:10:00 Rufino Lazarot h PHOSPHORUS 2022-02-20 05:10:00 Rufino Lazaro INFUSION PUMP 2022-02-19 19:03:50 Rufino Lazaro h COMPREHENSIVE METABOLIC 2022-02-19 06:35:00 [facility]FF 2022-02-19 06:35:00 Fannie Blake alth PHOSPHORUS 2022-02-19 06:35:00 Fannie Blake alth CBC 2022-02-19 06:35:00 Fannie Blake alth URINALYSIS W/REFLEX TO 2022-02-19 00:34:00 Fannie Blake [facility] URINE CULTURE URINALYSIS 2022-02-19 00:34:00 Chadd Palacios [facility] URINE CULTURE COLLECTION 2022-02-19 00:34:00 [facility] KIT SARS-COV-2, FLU A/B, RSV 2022-02-18 19:00:00 [facility] CORONAVIRUS, COVID-19, OLENA 2022-02-18 19:00:00 Chadd Palacios [facility] XRAY CHEST 1 VIEW 2022-02-18 15:23:00 Roz Scales [facility] CONSULT CLINICAL CASE 2022-02-18 14:50:50 Roz Scales [facility] MANAGEMENT (RN/SW) CBC/DIFF 2022-02-18 14:16:00 Susana Cooley [facility] BASIC METABOLIC PANEL 2022-02-18 14:16:00 Susana Cooley [facility] MAGNESIUM 2022-02-18 14:16:00 Susana Cooley [facility] h PHOSPHORUS 2022-02-18 14:16:00 AlbSusana almeida [facility] h CREATINE KINASE (CK) 2022-02-18 14:16:00 Susana Cooley [facility] CBC 2022-02-18 14:16:00 Susana Cooley [facility] h BASIC METABOLIC PANEL 2022-02-11 03:34:00 Daily Islas [facility] MAGNESIUM 2022-02-11 03:34:00 Teresa Alves [facility] PHOSPHORUS 2022-02-11 03:34:00 Teresa Alves [facility] CBC (WITHOUT DIFFERENTIAL) 2022-02-11 03:34:00 Teresa Alves [facility] CBC/DIFF 2022-02-10 03:39:00 [facility]EL 2022-02-10 03:39:00 [facility] 2022-02-10 03:39:00 [facility] THYROID STIMULATING 2022-02-10 03:39:00 [facility] HORMONE (TSH) FREE T4 2022-02-10 03:39:00 Teresa Alves [facility] CBC/DIFF 2022-02-09 04:38:00 [facility] PANEL 2022-02-09 04:38:00 [facility] 2022-02-09 04:38:00 Daily Islas [facility] CORTISOL, TOTAL 2022-02-08 11:37:00 Jian Schmitt [facility] GLUCOSE POC 2022-02-08 08:07:00 Daily Islas [facility] CBC (WITHOUT DIFFERENTIAL) 2022-02-08 04:00:00 Jian Schmitt [facility] COMPREHENSIVE METABOLIC 2022-02-08 04:00:00 Jian Schmitt [facility] PANEL PHOSPHORUS 2022-02-08 04:00:00 Jian Schmitt eah MAGNESIUM 2022-02-08 04:00:00 Jian Schmitt [facility] PT/INR 2022-02-08 04:00:00 Jian Schmitt [facility] URINALYSIS W/REFLEX TO 2022-02-07 18:06:00 Areli Arciniega [facility] URINE CULTURE URINALYSIS 2022-02-07 18:06:00 Areli Arciniega [facility] URINE CULTURE COLLECTION 2022-02-07 18:06:00 Areli Arciniega [facility] KIT ELECTROLYTES, URINE 2022-02-07 18:06:00 Jyoti Carrillo [facility] OSMOLALITY, URINE 2022-02-07 18:06:00 [facility] SARS-COV-[facility], FLU A/B, RSV 2022-02-07 18:05:00 Jyoti Carrillo [facility] CORONAVIRUS, COVID-19, OLENA 2022-02-07 18:05:00 Jyoti Carrillo [facility] NUTRITION CONSULT 2022-02-07 17:43:36 Jian Schmitt [facility] ASSESSMENT BASIC METABOLIC PANEL 2022-02-07 17:18:00 Jyoti Carrillo [facility] LACTIC ACID 2022-02-07 14:04:00 GaleAreli [facility] CBC/DIFF 2022-02-07 14:03:00 [facility] BASIC METABOLIC PANEL 2022-02-07 14:03:00 Areli Arciniega [facility] LIVER PROFILE 2022-02-07 14:03:00 Areli Arciniega alth LIPASE 2022-02-07 14:03:00 [facility] hospital[facility] alth MAGNESIUM 2022-02-07 14:03:00 [facility] alth PHOSPHORUS 2022-02-07 14:03:00 [facility] hospitalAreli [facility] alth TROPONIN I 2022-02-07 14:03:00 MicahemilianaAreli shields [facility] alth CBC 2022-02-07 14:03:00 [facility] hospitalAreli [facility] alth 12 LEAD EKG 2022-01-21 15:46:10 Ori Goldberg [facility] CBC/DIFF 2022-01-21 04:11:00 LindseyTien P [facility] MAGNESIUM 2022-01-21 04:11:00 LindseyTien P [facility] PHOSPHORUS 2022-01-21 04:11:00 Tien Lucas P [facility] BASIC METABOLIC PANEL 2022-01-21 04:11:00 Ori Goldberg [facility] CBC 2022-01-21 04:11:00 LindseyTien herrera [facility] CBC/DIFF 2022-01-20 04:37:00 Tien Lucas P [facility] MAGNESIUM 2022-01-20 04:37:00 LindseyNoe herrerah Esther Lynne [facility] PHOSPHORUS 2022-01-20 04:37:00 [facility] BASIC METABOLIC PANEL 2022-01-20 04:37:00 LindseyNoeh P [facility] CBC 2022-01-20 04:37:00 Tien Lucas [facility] MAGNESIUM 2022-01-19 18:09:00 LindseyNoeh Esther [facility] PHOSPHORUS 2022-01-19 18:09:00 [facility] BASIC METABOLIC PANEL 2022-01-19 18:09:00 [facility], Tien P [facility] CORTISOL, TOTAL 2022-01-19 18:09:00 Karin Bassett [facility] URINALYSIS W/REFLEX TO 2022-01-19 17:22:00 [facility] Healthcare[facility]eh P [facility] URINE CULTURE URINALYSIS 2022-01-19 17:22:00 [facility] Healthcare[facility]ien [facility] URINE CULTURE COLLECTION 2022-01-19 17:22:00 Noe Lucash Esther [facility] MEDL Mobile KIT COMPUTED TOMOGRAPHY 2022-01-19 13:29:00 [facility] HealthcareNoeh P [facility] ABDOMEN AND PELVIS WITHOUT CONTRAST CBC/DIFF 2022-01-19 04:44:00 Tien Lucas [facility] CBC 2022-01-19 04:44:00 [facility] Healthcare[facility]eh Esther [facility] DIFFERENTIAL, MANUAL (NO 2022-01-19 04:44:00 LindseyNoe herrerah Esther [facility] Health MORPHOLOGY)-[place] BASIC METABOLIC PANEL 2022-01-18 17:15:00 LindseyNoeh P [facility] CBC/DIFF 2022-01-18 04:46:00 [facility] Healthcare[facility] MAGNESIUM 2022-01-18 04:46:00 [facility] Healthcare[facility] PHOSPHORUS 2022-01-18 04:46:00 [facility] Healthcare[facility]eh P [facility] BASIC METABOLIC PANEL 2022-01-18 04:46:00 Ori Goldberg [facility] CBC 2022-01-18 04:46:00 [facility] Healthcare[facility] HIV AG/AB COMBO ROUTINE 2022-01-18 04:46:00 Karin Bassett [facility] SCREENING ENTERIC PATHOGENS NUCLEIC 2022-01-18 03:25:00 Karin Bassett [facility] ACID TEST BASIC METABOLIC PANEL 2022-01-18 00:29:00 Yusuf Con [facility] BASIC METABOLIC PANEL 2022-01-17 17:07:00 [facility] BASIC METABOLIC PANEL 2022-01-17 13:15:00 Tien [facility] CALPROTECTIN FECAL 2022-01-17 12:38:00 Tien Lucas ealt FECAL LEUKOCYTES 2022-01-17 12:38:00 Tien Lucas [facility] T-TRANSGLUTAMINASE IGA 2022-01-17 12:22:00 [facility] BASIC METABOLIC PANEL 2022-01-17 08:51:00 T[facility] BASIC METABOLIC PANEL 2022-01-17 04:47:00 T[facility] CBC/DIFF 2022-01-17 04:47:00 Tien Lucas [facility] MAGNESIUM 2022-01-17 04:47:00 Tien Lucas [facility] PHOSPHORUS 2022-01-17 04:47:00 Tien Lucas [facility] CBC 2022-01-17 04:47:00 Tien Lucas [facility] BASIC METABOLIC PANEL 2022-01-17 00:08:00 Tien Lucas [facility] 12 LEAD EKG 2022-01-16 21:23:25 Tien Lucas [facility] BASIC METABOLIC PANEL 2022-01-16 21:08:00 Tien Lucas [facility] XRAY CHEST 2 VIEWS 2022-01-16 19:56:00 Tien Lucas ealth IP CONSULT TO PHYSICAL 2022-01-16 19:17:17 T[facility] THERAPY CONSULT CLINICAL CASE 2022-01-16 19:17:17 Tien Lucas [facility] MANAGEMENT (RN/SW) SEQUENTIAL COMPRESSION 2022-01-16 19:17:17 T[facility] PUMP SODIUM, URINE, RANDOM 2022-01-16 16:00:00 NievesFrankieeddie Santana [facility] CREATININE, URINE, RANDOM 2022-01-16 16:00:00 Kevin Nieves [facility] OSMOLALITY, URINE 2022-01-16 16:00:00 Kevin Nieves [facility] SARS-COV-2, FLU A/B, RSV 2022-01-16 15:20:00 Kevin Nieves [facility] CORONAVIRUS, COVID-19, OLENA 2022-01-16 15:20:00 Kevin Nieves [facility] FOLIC ACID 2022-01-16 14:13:00 Kevin Nieves [facility] ealt CREATININE POC 2022-01-16 13:55:00 Raymon Martin [facility] BMP POC 2022-01-16 13:46:00 Raymon Martin Healt h CBC/DIFF 2022-01-16 12:12:00 Raymon Martin [facility] CBC 2022-01-16 12:12:00 Raymon Martin Healt h BASIC METABOLIC PANEL 2022-01-16 12:11:00 Sadiq Vargas [facility] MAGNESIUM 2022-01-16 12:11:00 Sadiq Vargas a lt VITAMIN B12 2022-01-16 12:11:00 Kevin Nieves [facility] ealt OSMOLALITY,SERUM 2022-01-16 12:11:00 Kevin Nieves [facility] INFUSION PUMP 2022-01-11 09:21:05 Helene Anderson [facility] GLUCOSE POC 2022-01-11 07:54:00 Helene Anderson [facility] BASIC METABOLIC PANEL 2022-01-11 04:07:00 Merissa Richards [facility] MAGNESIUM 2022-01-11 04:07:00 [facility] 2022-[facility]-11 04:07:00 [facility] CBC/DIFF 2022-01-11 04:06:00 [facility] IRON PROFILE 2022-01-11 04:06:00 RichardsMerissa [facility] FOLIC ACID 2022-01-11 04:06:00 FerchoMerissa [facility] h CBC 2022-01-11 04:06:00 FerchoMerissa [facility] GLUCOSE POC 2022-01-10 18:16:00 Helene Anderson [facility] URINALYSIS 2022-01-10 16:10:00 Richards Merissa Q [facility] h URINALYSIS 2022-01-10 16:10:00 Fercho Merissa Mims [facility] h SARS-COV-2, FLU A/B, RSV 2022-01-10 15:54:00 Merissa Richards [facility] CORONAVIRUS, COVID-19, OLENA 2022-01-10 15:54:00 Antoine Hester [facility] BASIC METABOLIC PANEL 2022-01-10 15:54:00 Merissa Richards [facility] VITAMIN B12 2022-01-10 15:54:00 Brodie Richardsa Felicita [facility] VBG POC 2022-01-10 11:14:00 Dia Jewell [facility] CBC/DIFF 2022-01-10 11:13:00 Antoine Hester [facility] BASIC METABOLIC PANEL 2022-01-10 11:13:00 Antoine Hester [facility] LACTIC ACID 2022-01-10 11:13:00 Antoine Hester [facility] CBC 2022-01-10 11:13:00 Antoine Hester [facility] LIVER PROFILE 2022-01-10 11:13:00 Merissa Richards [facility] CK, TOTAL 2022-01-10 11:13:00 Merissa Richards [facility] FERRITIN 2022-01-10 11:13:00 Merissa Richards [facility] CREATINE KINASE MB (CKMB) 2022-01-10 11:13:00 Merissa Richards [facility] XRAY CHEST 2 VIEWS 2022-01-08 21:50:14 Tanja Sebastian [facility] CBC/DIFF 2022-01-08 21:27:00 Tanja Sebastian [facility] BASIC METABOLIC PANEL 2022-01-08 21:27:00 Tanja Sebastian [facility] LIVER PROFILE 2022-01-08 21:27:00 Tanja Sebastian [facility] CK, TOTAL 2022-01-08 21:27:00 Tanja Sebastian [facility] TROPONIN I 2022-01-08 21:27:00 Tanja Sebastian [facility] CBC 2022-01-08 21:27:00 Tanja Sebastian [facility] CREATINE KINASE MB (CKMB) 2022-01-08 21:27:00 Tanja Sebastian [facility] 12 LEAD EKG 2022-01-08 20:59:56 Tanja Sebastian [facility] COMP. METABOLIC PANEL 2021-09-14 03:41:00 Mickey Ramos [facility] ([id number] CBC WITH DIFF 2021-09-14 03:41:00 Mickey Ramos [facility] CT HEAD WO CONTRAST 2021-09-12 14:10:00 Alona Carty [facility] TROPONIN I 2021-09-12 13:00:00 Odin [facility] BASIC METABOLIC PANEL (NA, 2021-09-12 13:00:00 Odin [facility] K, CL, CO2, GLUCOSE, BUN, Medica l Branch CREATININE, CA) CBC WITH DIFF 2021-09-12 13:00:00 Odin [facility] N-TERMINAL PRO-BNP 2021-09-12 13:00:00 Alona Carty [facility] LIPASE 2021-09-09 05:30:00 Sebastian Pacheco [facility] COMP. METABOLIC PANEL 2021-09-09 05:30:00 Sebastian Pacheco [facility] ([id number]) [facility] CBC WITH DIFF 2021-09-09 05:30:00 Sebastian Pacheco [facility] URINALYSIS 2021-09-08 04:45:00 Sebastian Pacheco [facility] CT ABDOMEN PELVIS W 2021-09-08 02:25:23 Sebastian Pacheco [facility] CONTRAST Medical Branch LIPASE 2021-09-08 02:02:00 Sebastian Pacheco [facility] COMP. METABOLIC PANEL 2021-09-08 02:02:00 Sebastian Pacheco [facility] ([id number]) Medical Branch CBC WITH DIFF 2021-09-08 02:02:00 Sebastian Pacheco [facility] LACTIC ACID WHOLE BLOOD 2021-09-08 02:02:00 Sebastian Pacheco [facility] COVID-19 (ID NOW RAPID 2021-09-08 01:54:00 Sebastian Pacheco [facility] TESTING) Medical Branch BASIC METABOLIC PANEL (NA, 2021-09-04 12:30:00 Demario Godoy [facility] K, CL, CO2, GLUCOSE, BUN, Medica l Branch CREATININE, CA) BASIC METABOLIC PANEL (NA, 2021-09-04 12:30:00 Demario Godoy [facility] K, CL, CO2, GLUCOSE, BUN, Medica l Branch CREATININE, CA) SURGICAL PATHOLOGY EXAM 2021-09-03 14:01:00 Mayela [facility] COLOSTOMY REVISION 2021-09-03 12:58:00 Mayela [facility] COLOSTOMY REVISION 2021-09-03 12:58:00 Mayela [facility] BASIC METABOLIC PANEL (NA, 2021-09-03 11:26:00 Cynthia Siddiqi [facility] K, CL, CO2, GLUCOSE, BUN, Medica l Branch CREATININE, CA) CBC WITHOUT DIFF 2021-09-03 11:26:00 Neeru [facility] BASIC METABOLIC PANEL (NA, 2021-09-03 11:26:00 Cynthia Siddiqi [facility] K, CL, CO2, GLUCOSE, BUN, Medica l Branch CREATININE, CA) CBC WITHOUT DIFF 2021-09-03 11:26:00 Neeru [facility] TRANSTHORACIC ECHO (TTE) 2021-09-02 21:22:12 [facility]/ CONTRAST Medical [facility] TRANSTHORACIC ECHO (TTE) 2021-09-02 21:22:12 Siddiqi, [facility]thia [facility]/ CONTRAST Medical [facility] COVID-19 (ID NOW RAPID 2021-09-02 19:35:00 Demario Godoy [facility] TESTING) Medical Branch LAB ONLY COVID 2021-09-02 19:35:00 Demario Godoy [facility] INTERPRETATION Medical Branch COVID-19 (ID NOW RAPID 2021-09-02 19:35:00 Demario Godoy [facility] TESTING) Medical Branch LAB ONLY COVID 2021-09-02 19:35:00 Demario Godoy [facility] INTERPRETATION [facility] BASIC METABOLIC PANEL (NA, 2021-09-02 10:40:00 Siddiqi, Cynthia [facility] K, CL, CO2, GLUCOSE, BUN, Medica l [...] 2021-09-01 21:20:00 Siddiqi, Cynthia [facility] K, CL, CO2, GLUCOSE, BUN, Medica l Branch CREATININE, CA) BLOOD CULTURE SCREEN 2021-09-01 08:03:00 Chasity [facility] BASIC METABOLIC PANEL (NA, 2021-09-01 08:03:00 Siddiqi, Cynthia [facility] K, CL, CO2, GLUCOSE, BUN, Medica l Branch CREATININE, CA) CBC WITH DIFF 2021-09-01 08:03:00 Neeru [facility] BLOOD CULTURE SCREEN 2021-09-01 08:03:00 Chasity [facility] BASIC METABOLIC PANEL (NA, 2021-09-01 08:03:00 Siddiqi, [facility] K, CL, CO2, GLUCOSE, BUN, Medica l Branch CREATININE, CA) CBC WITH DIFF 2021-09-01 08:03:00 [facility] 2021-09-01 02:09:00 [facility] BASIC METABOLIC PANEL (NA, 2021-09-01 02:09:00 Roberto [facility] K, CL, CO2, GLUCOSE, BUN, Arpita Medica [facility] CREATININE, CA) MAGNESIUM 2021-09-01 02:09:00 [facility] MET[facility]OL[facility] PANEL (NA, 2021-09-01 02:09:00 Roberto [facility] K, CL, CO2, GLUCOSE, BUN, Arpita [facility] CREATININE, CA) LACTIC ACID WHOLE BLOOD 2021-08-31 12:40:00 [facility] LACTIC ACID WHOLE BLOOD 2021-08-31 12:40:00 [facility] BASIC METABOLIC PANEL (NA, 2021-08-31 11:44:00 Gaspar, [facility] K, CL, CO2, GLUCOSE, BUN, Medica l Branch CREATININE, CA) BASIC METABOLIC PANEL (NA, 2021-08-31 11:44:00 Gaspar, [facility] K, CL, CO2, GLUCOSE, BUN, Medica l Branch CREATININE, CA) BASIC METABOLIC PANEL (NA, 2021-08-31 06:29:00 Gaspar, [facility] K, CL, CO2, GLUCOSE, BUN, Medica l Branch CREATININE, CA) LACTIC ACID WHOLE BLOOD 2021-08-31 06:29:00 [facility] BASIC METABOLIC PANEL (NA, 2021-08-31 06:29:00 [facility] K, CL, CO2, GLUCOSE, BUN, Medica l Branch CREATININE, CA) LACTIC ACID WHOLE BLOOD 2021-08-31 06:29:00 [facility] BLOOD CULTURE SCREEN 2021-08-31 06:28:00 Chasity [facility] BLOOD CULTURE WORKUP 2021-08-31 06:28:00 Chasity [facility] GRAM POSITIVE BLOOD 2021-08-31 06:28:00 Chasity [facility] PATHOGENS DNA [facility] PROBE-AEROBIC BLOOD CULTURE SCREEN 2021-08-31 06:28:00 Chasity [facility] BLOOD CULTURE WORKUP 2021-08-31 06:28:00 Chasity [facility] GRAM POSITIVE BLOOD 2021-08-31 06:28:00 Chasity [facility] PATHOGENS DNA [facility] PROBE-AEROBIC XR CHEST 2 VW 2021-08-31 03:08:00 [facility]W 2021-08-31 03:08:00 [facility] OSMOLALITY, SERUM OR 2021-08-31 02:44:00 [facility] 2021-08-31 02:44:00 [facility] THYROID STIMULATING 2021-08-31 02:44:00 [facility]IC [facility]OLIC PANEL (NA, 2021-08-31 02:44:00 [facility], CL, CO2, GLUCOSE, BUN, [facility] CREATININE, CA) OSMOLALITY, SERUM OR 2021-08-31 02:44:00 [facility] 2021-08-31 02:44:00 [facility] 2021-08-31 02:44:00 [facility] BASIC [facility]OLIC PANEL (NA, 2021-08-31 02:44:00 [facility] K, CL, CO2, GLUCOSE, BUN, [facility]issa [facility] CREATININE, CA) OSMOLALITY URINE 2021-08-31 00:08:00 [facility] 2021-08-31 00:08:00 [facility] SODIUM, URINE RANDOM 2021-08-31 00:08:00 Gaspar [facility] CHLORIDE, URINE RANDOM 2021-08-31 00:08:00 Gaspar [facility] OSMOLALITY URINE 2021-08-31 00:08:00 [facility] URINALYSIS 2021-08-31 00:08:00 [facility] SODIUM, URINE RANDOM 2021-08-31 00:08:00 Gaspar [facility] CHLORIDE, URINE RANDOM 2021-08-31 00:08:00 Gaspar [facility] TROPONIN I 2021-08-30 23:27:00 [facility] COMP. METABOLIC PANEL 2021-08-30 23:27:00 Riccardo [facility] ([id number]) [facility] CBC WITH DIFF 2021-08-30 23:27:00 [facility] N-TERMINAL PRO-BNP 2021-08-30 23:27:00 Riccardo [facility] TROPONIN I 2021-08-30 23:27:00 [facility] COMP. METABOLIC PANEL 2021-08-30 23:27:00 Riccardo [facility] ([id number]) [facility] CBC WITH DIFF 2021-08-30 23:27:00 [facility] N-TERMINAL PRO-BNP 2021-08-30 23:27:00 Riccardo [facility] HB ECG ROUTINE & RHYTHM 2021-08-30 23:04:48 Gayatri Gu [facility] HB ECG ROUTINE & RHYTHM 2021-08-30 23:04:48 [facility]atri [facility] XR CHEST 1 VW 2021-08-30 00:31:51 Alvarez Austin [facility] POCT RAPID STREP SCREEN 2021-08-30 00:24:00 Alvarez Austin [facility] FOR GROUP A Medical Branch GALV ONLY - INFLUENZA A B 2021-08-30 00:15:00 Alvarez Austin [facility] RSV PCR Medical Branch COVID-19 (MOLECULAR 2021-08-30 00:15:00 Alvarez Austin [facility] TESTING [facility] NUCLEIC ACID AMPLIFICATION) PREALBUMIN, SERUM 2021-08-05 10:46:00 Cesar, [facility] PHOSPHORUS 2021-08-05 10:46:00 Cesar, [facility] ALBUMIN 2021-08-05 10:46:00 Cesar [facility] MAGNESIUM 2021-08-05 10:46:00 Cesar, [facility] BASIC METABOLIC PANEL (NA, 2021-08-05 10:46:00 Cesar, Jessica [facility] K, CL, CO2, GLUCOSE, BUN, Medica l Branch CREATININE, CA) CBC WITH DIFF 2021-08-05 10:46:00 Cesar [facility] COVID-19 (ID NOW RAPID 2021-08-05 00:29:00 Jessica Guerrero [facility] TESTING) Medical Branch PHOSPHORUS 2021-08-04 11:37:00 Hakeem Jo [facility] MAGNESIUM 2021-08-04 11:37:00 Hakeem Jo [facility] BASIC METABOLIC PANEL (NA, 2021-08-04 11:37:00 Beau Benedict [facility] K, CL, CO2, GLUCOSE, BUN, Skyler [facility] CREATININE, CA) CBC WITH DIFF 2021-08-04 11:37:00 Hakeem Jo [facility] PHOSPHORUS 2021-08-03 10:36:00 Hakeem Jo [facility] MAGNESIUM 2021-08-03 10:36:00 [facility] BASIC [facility]OLIC PANEL (NA, 2021-08-03 10:36:00 Hakeem Jo, [facility] K, CL, CO2, GLUCOSE, BUN, [facility] CREATININE, CA) CBC WITH DIFF 2021-08-03 10:36:00 Hakeem Jo [facility] PHOSPHORUS 2021-08-02 10:53:00 Hakeem Jo [facility] MAGNESIUM 2021-08-02 10:53:00 [facility] BASIC METABOLIC PANEL (NA, 2021-08-02 10:53:00 Hakeem Jo, [facility] K, CL, CO2, GLUCOSE, BUN, [facility] CREATININE, CA) CBC WITH DIFF 2021-08-02 10:53:00 Hakeem Jo [facility] PHOSPHORUS 2021-08-01 10:03:00 Hakeem Jo [facility] MAGNESIUM 2021-08-01 10:03:00 [facility] BASIC METABOLIC PANEL (NA, 2021-08-01 10:03:00 Hakeem Jo [facility] K, CL, CO2, GLUCOSE, BUN, [facility] CREATININE, CA) CBC WITH DIFF 2021-08-01 10:03:00 Hakeem Jo [facility] PREALBUMIN, SERUM 2021-07-31 10:22:00 Antonino jin [facility] Leda, [facility] PHOSPHORUS 2021-07-31 10:22:00 [facility] MAGNESIUM 2021-07-31 10:22:00 [facility] BASIC METABOLIC PANEL (NA, 2021-07-31 10:22:00 Hakeem Jo, [facility] K, CL, CO2, GLUCOSE, BUN, [facility] CREATININE, CA) CBC WITH DIFF 2021-07-31 10:22:00 Hakeem Jo [facility] COVID-19 (ID NOW RAPID 2021-07-30 06:13:00 Jonah Rees [facility] TESTING) Medical Branch LAB ONLY COVID 2021-07-30 06:13:00 Jonah Rees [facility] INTERPRETATION [facility] CT ABDOMEN PELVIS W 2021-07-30 05:19:01 Jonah Rees [facility] CONTRAST [facility] COMP. METABOLIC PANEL 2021-07-30 03:25:00 NegritaJonah escoto [facility] ([id number]) Medical Branch LACTIC ACID WHOLE BLOOD 2021-07-30 02:53:00 NegritaJonah escoto [facility] LIPASE 2021-07-30 02:52:00 NegritaJonah escoto [facility] CBC WITH DIFF 2021-07-30 02:52:00 Jonah Rees [facility] CONSENT/REFUSAL FOR 2021-07-30 02:09:09 Doctor Unassigned, [facility] DIAGNOSIS AND TREATMENT [place] [facility] PHOSPHORUS 2021-07-26 12:30:00 Antonino Dietrich [facility] MAGNESIUM 2021-07-26 12:30:00 Antonino Dietrich [facility] Leda, [place] BASIC METABOLIC PANEL (NA, 2021-07-26 12:30:00 Antonino jin [facility] K, CL, CO2, GLUCOSE, BUN, [place], [facility] CREATININE, CA) CBC WITH DIFF 2021-07-26 12:30:00 Antonino Dietrich [facility], [facility] PHOSPHORUS 2021-07-25 11:32:00 Hakeem Jo [facility] MAGNESIUM 2021-07-25 11:32:00 [facility] BASIC METABOLIC PANEL (NA, 2021-07-25 11:32:00 Antonino Karlo de [facility] K, CL, CO2, GLUCOSE, BUN, [place], [facility] CREATININE, CA) CBC WITH DIFF 2021-07-25 11:32:00 Antonino jin [facility] L[facility], [facility] CBC WITH DIFF 2021-07-25 04:13:00 Cesar, [facility] PHOSPHORUS 2021-07-24 12:18:00 Cesar, [facility] MAGNESIUM 2021-07-24 12:18:00 Cesar, [facility] BASIC METABOLIC PANEL (NA, 2021-07-24 12:18:00 Cesar, Adil [facility] K, CL, CO2, GLUCOSE, BUN, Medica l Branch CREATININE, CA) COVID-19 (ID NOW RAPID 2021-07-23 15:23:00 Flaco Lemus [facility] TESTING) Medical Branch LAB ONLY COVID 2021-07-23 15:23:00 Flaco Lemus [facility] INTERPRETATION [facility] URINALYSIS 2021-07-23 12:49:00 Hakeem Jo [facility] PHOSPHORUS 2021-07-23 12:42:00 Hakeem Jo [facility] MAGNESIUM 2021-07-23 12:42:00 Hakeem Jo [facility] BASIC METABOLIC PANEL (NA, 2021-07-23 12:42:00 Beau [facility] [place] K, CL, CO2, GLUCOSE, BUN, [facility] CREATININE, CA) CBC WITH DIFF 2021-07-23 12:42:00 Hakeem Jo [facility] CT ABDOMEN PELVIS WO 2021-07-23 08:55:17 Flaco Lemus [facility] CONTRAST Medical Branch EXTERNAL PROVIDER RECORDS 2021-06-25 05:01:00 Doctor Unassigned, [facility] [place] [facility] BASIC METABOLIC PANEL (NA, 2021-06-03 10:37:00 Shweta Anderson [facility] K, CL, CO2, GLUCOSE, BUN, Medica l Branch CREATININE, CA) BASIC METABOLIC PANEL (NA, 2021-06-02 10:54:00 [facility], CO2, GLUCOSE, BUN, Medica [facility] CREATININE, CA) CLOSTRIDIUM DIFFICILE 2021-06-01 22:51:00 [facility] FECAL PATHOGENS BY PCR 2021-06-01 22:51:00 [facility] BASIC METABOLIC PANEL (NA, 2021-06-01 15:42:00 Monica [facility] K, CL, CO2, GLUCOSE, BUN, Medica l Branch CREATININE, CA) LACTIC ACID WHOLE BLOOD 2021-06-01 05:38:00 [facility] ABDOMEN PELVIS W 2021-05-31 23:25:45 Willie Garrett [facility] CONTRAST [facility] LIPASE 2021-05-31 22:44:00 Willie Garrett [facility] TROPONIN I 2021-05-31 22:44:00 Willie Garrett [facility] COMP. METABOLIC PANEL 2021-05-31 22:44:00 Willie Garrett [facility] ([id number]) Medical Branch CBC WITH DIFF 2021-05-31 22:44:00 Willie Garrett [facility] COVID-19 (ID NOW RAPID 2021-05-31 22:44:00 Willie Garrett [facility] TESTING) Medical Branch LAB ONLY COVID 2021-05-31 22:44:00 Willie Garrett [facility] INTERPRETATION [facility] PHOSPHORUS 2021-05-21 09:03:00 Cesar [facility] MAGNESIUM 2021-05-21 09:03:00 Cesar [facility] BASIC METABOLIC PANEL (NA, 2021-05-21 09:03:00 Agatha Noonan [facility] K, CL, CO2, GLUCOSE, BUN, Medica l Branch CREATININE, CA) CBC WITH DIFF 2021-05-21 09:03:00 Agatha Noonan [facility] XR KUB 2021-05-20 20:02:49 Andrzej [facility] LIPASE 2021-05-20 20:00:00 Andrzej [facility] COMP. METABOLIC PANEL 2021-05-20 20:00:00 Bernardo Donnelly [facility] ([id number]) Medical Branch CBC WITH DIFF 2021-05-20 20:00:00 Andrzej [facility] LACTIC ACID WHOLE BLOOD 2021-05-20 20:00:00 Bernardo [facility] COVID-19 (ID NOW RAPID 2021-05-20 20:00:00 Andrzej [facility] TESTING) Medical Branch BASIC METABOLIC PANEL (NA, 2021-05-08 10:04:00 Irene Lora [facility] K, CL, CO2, GLUCOSE, BUN, Medica l Branch CREATININE, CA) CBC WITH DIFF 2021-05-08 10:04:00 Irene Lora [facility] XR KUB 2021-05-08 09:44:22 Beto [facility] XR ABDOMEN 1 VW 2021-05-08 05:32:36 Irene Lora [facility] CT ABDOMEN PELVIS W 2021-05-08 01:08:43 Alona Pérez [facility] CONTRAST Medical Branch HEPATIC FUNCTION PANEL 2021-05-08 00:49:00 Beto [facility] ([id number]) (ALB,T.PRO,BILI Medical Branch T,BU/BC,ALT,AST,ALK PHOS) BASIC METABOLIC PANEL (NA, 2021-05-08 00:49:00 Alona Pérez [facility] K, CL, CO2, GLUCOSE, BUN, [facility] CREATININE, CA) CBC WITH DIFF 2021-05-08 00:49:00 Beto [facility] COVID-19 (ID NOW RAPID 2021-05-08 00:42:00 Beto [facility] TESTING) Medical Branch LAB ONLY COVID 2021-05-08 00:42:00 Beto [facility] INTERPRETATION [facility] NOTICE OF PRIVACY 2020-09-27 01:47:31 Doctor Unassigned, [facility] PRACTICES [place] [facility] CONSENT/REFUSAL FOR 2020-09-27 01:47:01 Doctor Unassigned, [facility] DIAGNOSIS AND TREATMENT [place] [facility] BASIC METABOLIC PANEL (NA, 2020-08-23 10:03:00 Judith Ingram [facility] K, CL, CO2, GLUCOSE, BUN, Medica l Branch CREATININE, CA) CBC WITHOUT DIFF 2020-08-23 10:03:00 Judith Ingram [facility] COVID-19 (ID NOW RAPID 2020-08-23 00:23:00 Funmilayo Pinzon [facility] TESTING) Medical Branch HB ECG ROUTINE & RHYTHM 2020-08-22 22:19:37 Funmilayo Pinzon [facility] STRIP [facility] HEPATIC FUNCTION PANEL 2020-08-22 22:08:00 Funmilayo Pinzon [facility] ([id number]) (ALB,T.PRO,BILI Medical Branch T,BU/BC,ALT,AST,ALK PHOS) BASIC METABOLIC PANEL (NA, 2020-08-22 22:08:00 Nallely Pinzon [facility] K, CL, CO2, GLUCOSE, BUN, Medica [facility] Branch CREATININE, CA) CBC WITH DIFF 2020-08-22 22:08:00 Funmilayo Pinzon [facility] CT SOFT TISSUE NECK W 2020-07-10 00:21:10 Juan M Aguillon [facility] CONTRAST [facility] URINALYSIS 2020-07-09 23:07:00 Juan M Aguillon [facility] BASIC METABOLIC PANEL (NA, 2020-07-09 22:51:00 Kirk Aguillon [facility] K, CL, CO2, GLUCOSE, BUN, Medica l Branch CREATININE, CA) CBC WITH DIFF 2020-07-09 22:51:00 Juan M Aguillon [facility] RAPID STREP SCREEN FOR 2020-07-09 22:51:00 Juan M Aguillon [facility] GROUP A Medical Branch COVID-19 (ID NOW RAPID 2020-07-09 22:51:00 Juan M Aguillon [facility] TESTING) Medical Branch CT ABDOMEN PELVIS W 2020-06-05 13:02:55 Travis Valdez [facility] URINALYSIS 2020-06-05 13:02:00 More Goetz [facility] EKG-12 LEAD 2020-06-05 11:57:46 More Goetz [facility] LIPASE 2020-06-05 11:57:00 More Goetz [facility] TROPONIN I 2020-06-05 11:57:00 More Goetz [facility] HEPATIC FUNCTION PANEL 2020-06-05 11:57:00 More Goetz [facility] ([id number]) (ALB,[facility].PRO,[facility] T,BU/BC,ALT,AST,ALK PHOS) BASIC METABOLIC PANEL (NA, 2020-06-05 11:57:00 More Goetz [facility] K, CL, CO2, GLUCOSE, BUN, Medica l Branch CREATININE, CA) CBC WITH DIFF 2020-06-05 11:57:00 More Goetz [facility] LACTIC ACID WHOLE BLOOD 2020-06-05 11:57:00 More Goetz [facility] PHOSPHORUS 2020-05-31 07:54:00 Katia Gomez [facility] MAGNESIUM 2020-05-31 07:54:00 Katia Gomez [facility] BASIC METABOLIC PANEL (NA, 2020-05-31 07:54:00 Katia Gomez [facility] K, CL, CO2, GLUCOSE, BUN, Medica l Branch CREATININE, CA) CBC WITH DIFF 2020-05-31 07:54:00 Katia Gomez [facility] [facility] IR CHANGE OF ABSCESS DRAIN 2020-05-30 19:33:43 Ashwin Marshall U [facility] PHOSPHORUS 2020-05-30 08:19:[address] [facility] MAGNESIUM 2020-05-30 08:19:[address] [facility] BASIC METABOLIC PANEL (NA, 2020-05-30 08:19:00 Socorro escoto [facility] K, CL, CO2, GLUCOSE, BUN, [facility] CREATININE, CA) PHOSPHORUS 2020-05-29 06:43:00 Lambreton Gonzales, [facility] MAGNESIUM 2020-05-29 06:43:00 Lambreton Gonzales, [facility] BASIC METABOLIC PANEL (NA, 2020-05-29 06:43:00 Lambreton Carlos a, [facility] K, CL, CO2, GLUCOSE, BUN, [facility] CREATININE, CA) PHOSPHORUS 2020-05-28 09:08:00 Lambreton Gonzales, [facility] MAGNESIUM 2020-05-28 09:08:00 Lambreton Gonzales, [facility] BASIC METABOLIC PANEL (NA, 2020-05-28 09:08:00 Lambreton Carlos a, [facility] K, CL, CO2, GLUCOSE, BUN, [facility] CREATININE, CA) PHOSPHORUS 2020-05-27 09:33:00 Lambreton Gonzales, [facility] MAGNESIUM 2020-05-27 09:33:00 Lambreton Gonzales, [facility] BASIC METABOLIC PANEL (NA, 2020-05-27 09:33:00 Lambreton Carlos a, [facility] K, CL, CO2, GLUCOSE, BUN, [facility] CREATININE, CA) PHOSPHORUS 2020-05-26 09:27:00 Lambreton Gonzales, [facility] MAGNESIUM 2020-05-26 09:27:00 Lambreton Gonzales, [facility] BASIC METABOLIC PANEL (NA, 2020-05-26 09:27:00 Lambreton Carlos a, [facility] K, CL, CO2, GLUCOSE, BUN, [facility] CREATININE, CA) PHOSPHORUS 2020-05-25 21:42:00 Lambreton Gonzales, [facility] MAGNESIUM 2020-05-25 21:42:00 Lambreton Gonzales, [facility] BASIC METABOLIC PANEL (NA, 2020-05-25 21:42:00 Lambreton Carlos a, [employer] [place] K, CL, CO2, GLUCOSE, BUN, [facility] CREATININE, CA) CBC WITH DIFF 2020-05-25 21:42:00 [facility] 2020-05-25 20:39:54 Lambreton Gonzales, [facility] PHOSPHORUS 2020-05-25 08:48:00 Lambreton Gonzales, [facility] MAGNESIUM 2020-05-25 08:48:00 [facility] BASIC [facility]ABOLIC PANEL (NA, 2020-05-25 08:48:00 Lambangeloon Carlos a, [facility] K, CL, CO2, GLUCOSE, BUN, [facility] CREATININE, CA) PHOSPHORUS 2020-05-24 20:41:00 [facility]UM 2020-05-24 20:41:00 Lambreton Gonzales, [facility] BASIC METABOLIC PANEL (NA, 2020-05-24 20:41:00 Lambangeloon Carlos a, [facility] K, CL, CO2, GLUCOSE, BUN, [facility] CREATININE, CA) IR CHANGE OF ABSCESS DRAIN 2020-05-24 17:57:11 Vance Stafford [facility] IR ASPIRATION ABSCESS 2020-05-24 17:24:40 Randa [facility] BULLA OR CYST BY NEEDLE [facility] ASPIRATE OR ABSCESS 2020-05-24 17:23:00 Nixon Prince [facility] CULTURE(AEROBIC/ANAEROBIC) Medic mt Branch CBC WITH DIFF 2020-05-24 11:08:00 Alondra Fay [facility]BD[facility]EN PELVIS W 2020-05-23 15:02:24 Randa Julio [facility] CONTRAST [facility] BASIC METABOLIC PANEL (NA, 2020-05-23 09:45:00 [facility], CL, CO2, GLUCOSE, BUN, [facility] CREATININE, CA) COVID-19 (PCR MOLECULAR 2020-05-23 06:53:00 Bia Pedro [facility] TESTING) Medical Branch URINALYSIS 2020-05-22 21:41:00 Lopez, [facility] LIPASE 2020-05-22 21:26:00 [facility] 2020-05-22 21:26:00 Lopez, Wygeri [facility] ([id number]) (ALB,T.PRO,BILI Medical Branch T,BU/BC,ALT,AST,ALK PHOS) BASIC METABOLIC PANEL (NA, 2020-05-22 21:26:00 LopezAlex sweeney [facility] K, CL, CO2, GLUCOSE, BUN, Medica l Branch CREATININE, CA) CBC WITH DIFF 2020-05-22 21:26:00 Lopez, [facility] PROTHROMBIN TIME / INR 2020-05-22 21:26:00 Colette Wygeri [facility] ACTIVATED PARTIAL THRMPLAS 2020-05-22 21:26:00 Alex Lopez [facility] SELENA [facility] XR CHEST 1 VW 2020-05-22 20:55:00 Lopez, [facility] HOSPITAL ADMISSION 2020-05-22 05:01:00 Doctor Unassigned, [facility] [place] Medical [facility] URINALYSIS 2020-05-20 09:58:00 Jonah Rodriguez [facility] COVID-19 (ID NOW RAPID 2020-05-20 09:48:00 Jonah Rodriguez [facility] TESTING) Medical Branch CT ABDOMEN PELVIS W 2020-05-20 04:07:43 Jonah Rodriguez [facility] CONTRAST [facility] LIPASE 2020-05-20 03:09:00 Jonah Rodriguez [facility] MAGNESIUM 2020-05-20 03:09:00 Jonah Rodriguez [facility] TROPONIN I 2020-05-20 03:09:00 Michael [facility] COMP. METABOLIC PANEL 2020-05-20 03:09:00 Jonah Rodriguez [facility] ([id number]) Medical Branch CBC WITH DIFF 2020-05-20 03:09:00 Jonah Rodriguez [facility] Medical Branch PHOSPHORUS 2020-05-10 09:13:00 [facility] 2020-05-10 09:13:00 [facility] BASIC METABOLIC PANEL (NA, 2020-05-10 09:13:00 Randa, [facility] [place] K, CL, CO2, GLUCOSE, BUN, Medica l Branch CREATININE, CA) CBC WITH DIFF 2020-05-10 09:13:00 [facility] PH[facility]US 2020-05-09 10:28:00 [facility] MAGNESIUM 2020-05-09 10:28:00 [facility] BASIC METABOLIC PANEL (NA, 2020-05-09 10:28:00 Randa, [facility] [place] K, CL, CO2, GLUCOSE, BUN, Medica l Branch CREATININE, CA) CBC WITH DIFF 2020-05-09 10:28:00 [facility] PH[facility]US 2020-05-08 11:18:00 [facility] MAGNESIUM 2020-05-08 11:18:00 [facility] BASIC METABOLIC PANEL (NA, 2020-05-08 11:18:00 Randa, [facility] [place] K, CL, CO2, GLUCOSE, BUN, Medica l Branch CREATININE, CA) CBC WITH DIFF 2020-05-08 11:18:00 Randa [facility] PHOSPHORUS 2020-05-07 09:21:00 [facility] MAGN[facility]UM 2020-05-07 09:21:00 [facility] BASIC METABOLIC PANEL (NA, 2020-05-07 09:21:00 Randa [facility] [place] K, CL, CO2, GLUCOSE, BUN, Medica l Branch CREATININE, CA) CBC WITH DIFF 2020-05-07 09:21:00 [facility] PH[facility]US 2020-05-06 09:57:00 [facility] MAGNESIUM 2020-05-06 09:57:00 [facility] BASIC METABOLIC PANEL (NA, 2020-05-06 09:57:00 [facility], [facility], CO2, GLUCOSE, BUN, Medica l Branch CREATININE, CA) CBC WITH DIFF 2020-05-06 09:56:00 [facility] IR DRAINAGE BY CATHETER 2020-05-05 19:55:00 [facility] RETROPERITONEAL BODY FLUID 2020-05-05 19:06:00 Nixon Prince [facility] CULTURE(AEROBIC/ANAEROBIC) [facility] FUNGUS (ROUTINE) CULTURE 2020-05-05 19:06:00 Nixon Prince [facility] BODY FLUID 2020-05-05 19:00:00 [facility] CULTURE(AEROBIC/ANAEROBIC) [facility] FUNGUS (ROUTINE) CULTURE 2020-05-05 19:00:00 Ivan Guthrie [facility] PREPARE PACKED RBC 2020-05-05 15:59:33 [facility] ABO GROUPING 2020-05-05 10:55:[address] [facility] PREALBUMIN, SERUM 2020-05-05 08:56:00 [facility] 2020-05-05 08:56:00 [facility] MAGNESIUM 2020-05-05 08:56:00 [facility] BASIC METABOLIC PANEL (NA, 2020-05-05 08:56:00 Randa [facility] K, CL, CO2, GLUCOSE, BUN, Medica l Branch CREATININE, CA) CBC WITH DIFF 2020-05-05 08:56:00 [facility] URINALYSIS 2020-05-05 05:11:00 Lora Hall [facility] CT ABDOMEN PELVIS W 2020-05-05 04:18:56 Lora Hall [facility] LIPASE 2020-05-05 02:35:00 Lora Hall [facility] COMP. METABOLIC PANEL 2020-05-05 02:35:00 Lora Hall [facility] ([id number]) Medical Branch CBC WITH DIFF 2020-05-05 02:35:00 Lora Hall [facility] COVID-19 (ID NOW RAPID 2020-05-05 02:27:00 Lora Hall [facility] TESTING) Medical Branch HOSPITAL ADMISSION 2020-05-04 05:01:00 Doctor Unassigned, [facility] [place] [facility] CBC WITH DIFF 2020-05-01 11:32:00 [facility] 2020-05-01 11:32:00 [facility] 2020-05-01 11:32:00 [facility] BASIC METABOLIC PANEL (NA, 2020-05-01 11:32:00 Randa, [facility] K, CL, CO2, GLUCOSE, BUN, Medica l Branch CREATININE, CA) CBC WITH DIFF 2020-04-29 11:31:00 [facility] PH[facility]US 2020-04-29 11:31:00 [facility]UM 2020-04-29 11:31:00 [facility] BASIC METABOLIC PANEL (NA, 2020-04-29 11:31:00 Randa [facility] K, CL, CO2, GLUCOSE, BUN, Medica l Branch CREATININE, CA) CBC WITH DIFF 2020-04-28 08:51:00 [facility] 2020-04-28 08:51:00 Becky, [facility] BASIC METABOLIC PANEL (NA, 2020-04-28 08:51:00 Becky, [facility] K, CL, CO2, GLUCOSE, BUN, Cathryn Medica l Branch CREATININE, CA) CBC WITH DIFF 2020-04-27 09:34:00 Becky [facility] MAGNESIUM 2020-04-27 09:34:00 Becky, [facility] BASIC METABOLIC PANEL (NA, 2020-04-27 09:34:00 Bekcy, [facility] K, CL, CO2, GLUCOSE, BUN, Cath[facility] CREATININE, CA) CBC WITH DIFF 2020-04-26 09:27:00 Becky, [facility] MAGNESIUM 2020-04-26 09:27:00 Becky, [facility] BASIC METABOLIC PANEL (NA, 2020-04-26 09:27:00 Becky, [facility] K, CL, CO2, GLUCOSE, BUN, [facility] CREATININE, CA) CBC WITH DIFF 2020-04-25 08:59:00 Becky [facility] MAGNESIUM 2020-04-25 08:59:00 Becky, [facility] BASIC METABOLIC PANEL (NA, 2020-04-25 08:59:00 Becky, [facility] K, CL, CO2, GLUCOSE, BUN, [facility] CREATININE, CA) CBC WITH DIFF 2020-04-24 09:44:00 Becky, [facility] MAGNESIUM 2020-04-24 09:44:00 Becky, [facility] BASIC METABOLIC PANEL (NA, 2020-04-24 09:44:00 Becky, [facility] K, CL, CO2, GLUCOSE, BUN, [facility] CREATININE, CA) CT ABDOMEN PELVIS W 2020-04-23 23:24:02 Grant Cheema, [facility] CONTRAST [facility] CT THORAX W CONTRAST 2020-04-23 23:24:02 Grant Cheema, [facility] COVID-19 (ID NOW RAPID 2020-04-23 15:06:00 Grant Cheema, [facility] TESTING) [facility] PREALBUMIN, SERUM 2020-04-23 13:42:00 Grant Cheema, [facility] POTASSIUM SERUM 2020-04-23 13:42:00 Becky [facility] CBC WITH DIFF 2020-04-23 10:17:00 Becky, [facility] MAGNESIUM 2020-04-23 10:17:00 Becky, [facility] BASIC METABOLIC PANEL (NA, 2020-04-23 10:17:00 Becky, [facility] K, CL, CO2, GLUCOSE, BUN, [facility] CREATININE, CA) XR CHEST 1 VW 2020-04-23 10:03:00 Becky, [facility] MAGNESIUM 2020-04-22 10:37:00 Becky, [facility] BASIC METABOLIC PANEL (NA, 2020-04-22 10:37:00 Becky, [facility] K, CL, CO2, GLUCOSE, BUN, [facility] CREATININE, CA) CBC WITH DIFF 2020-04-22 10:30:00 Becky [facility] XR CHEST 1 VW 2020-04-22 07:30:00 Becky [facility] CBC WITH DIFF 2020-04-21 13:09:00 Becky, [facility] MAGNESIUM 2020-04-21 13:09:00 Becky, [facility] BASIC METABOLIC PANEL (NA, 2020-04-21 13:09:00 Becky [facility] K, CL, CO2, GLUCOSE, BUN, [facility] CREATININE, CA) XR CHEST 1 VW 2020-04-21 06:41:[address] [facility] XR CHEST 1 VW 2020-04-20 11:03:[address] [facility] CBC WITH DIFF 2020-04-20 09:45:00 Katrina [facility] PREALBUMIN, SERUM 2020-04-20 09:45:[address] [facility] PHOSPHORUS 2020-04-20 09:45:[address] [facility] MAGNESIUM 2020-04-20 09:45:00 Katrina [facility] BASIC METABOLIC PANEL (NA, 2020-04-20 09:45:00 Yosvany Herndon [facility] [place] K, CL, CO2, GLUCOSE, BUN, Medica l Branch CREATININE, CA) XR CHEST 1 2020-04-19 10:13:45 Becky [facility] CBC WITH DIFF 2020-04-19 10:10:00 Katrina [facility] PHOSPHORUS 2020-04-19 10:10:[address] [facility] MAGNESIUM 2020-04-19 10:10:00 Katrina [facility] BASIC METABOLIC PANEL (NA, 2020-04-19 10:10:00 Yosvany Herndon [facility] [place] K, CL, CO2, GLUCOSE, BUN, Medica l Branch CREATININE, CA) XR CHEST 1 2020-04-18 11:01:00 Becky [facility] CBC WITH DIFF 2020-04-18 10:19:00 Katrina [facility] PHOSPHORUS 2020-04-18 10:19:[address] [facility] MAGNESIUM 2020-04-18 10:19:00 Katrina [facility] BASIC METABOLIC PANEL (NA, 2020-04-18 10:19:00 Yosvany Hern[facility] [place] K, CL, CO2, GLUCOSE, BUN, Medica l Branch CREATININE, CA) XR CHEST 1 2020-04-17 18:58:00 Becky [facility] CBC WITH DIFF 2020-04-17 09:33:00 Katrina [facility] PHOSPHORUS 2020-04-17 09:33:[address] [facility] MAGNESIUM 2020-04-17 09:33:00 Katrina [facility] BASIC METABOLIC PANEL (NA, 2020-04-17 09:33:00 Yosvany Herndon [facility] [place] K, CL, CO2, GLUCOSE, BUN, Medica l Branch CREATININE, CA) XR CHEST 1 2020-04-17 08:52:[address] [facility] XR CHEST 1 VW 2020-04-16 23:45:00 Jamie Staffordalan [place] [facility] BODY FLUID 2020-04-16 21:50:00 Rivera [facility] CULTURE(AEROBIC/ANAEROBIC) [facility] al Branch FUNGUS (ROUTINE) CULTURE 2020-04-16 21:50:00 Vance Stafford [facility] CYTO PLEURAL FLUID 2020-04-16 21:50:00 Vance Stafford [facility] LDH TOTAL BODY FLUID 2020-04-16 21:50:00 Vance Stafford [facility] AMYLASE BODY FLUID 2020-04-16 21:50:[address] [facility] GLUCOSE BODY FLUID 2020-04-16 21:50:[address] [facility] PH, BODY FLUID 2020-04-16 21:50:00 Rivera [facility] T.PROTEIN BODY FLUID 2020-04-16 21:50:00 Vance Stafford [facility] BODY FLUID DIRECT COUNT 2020-04-16 21:50:00 Vance [facility] IR PLEURAL DRAINAGE WITH 2020-04-16 21:36:25 Rosaura Pena [facility] TUBE WITH IMAGING [facility] PROTHROMBIN TIME / INR 2020-04-16 16:07:00 Rosaura Pena [facility] [place] CBC WITH DIFF 2020-04-16 10:07:00 Yosvany Herndon [facility] PHOSPHORUS 2020-04-16 10:07:00 Sabi Srivastava [facility] MAGNESIUM 2020-04-16 10:07:00 [facility] BASIC METABOLIC PANEL (NA, 2020-04-16 10:07:00 Yosvany Herndon [facility] K, CL, CO2, GLUCOSE, BUN, [facility] l Branch CREATININE, CA) CT ABDOMEN PELVIS W 2020-04-16 07:02:21 Grant Cheema [facility] CBC WITH DIFF 2020-04-15 10:02:00 Katrina [facility] PHOSPHORUS 2020-04-15 10:02:[address] [facility] MAGNESIUM 2020-04-15 10:02:00 Katrina [facility] BASIC METABOLIC PANEL (NA, 2020-04-15 10:02:00 Yosvany Herndon [facility] K, CL, CO2, GLUCOSE, BUN, Medica l Branch CREATININE, CA) CBC WITH DIFF 2020-04-14 10:26:00 Katrina [facility] PHOSPHORUS 2020-04-14 10:26:[address] [facility] MAGNESIUM 2020-04-14 10:26:00 Katrina [facility] BASIC METABOLIC PANEL (NA, 2020-04-14 10:26:00 Yosvany Herndon [facility] K, CL, CO2, GLUCOSE, BUN, Medica l Branch CREATININE, CA) BASIC METABOLIC PANEL (NA, 2020-04-13 23:53:00 Grant Santana i, [facility] K, CL, CO2, GLUCOSE, BUN, Danny Medica l Branch CREATININE, CA) CBC WITHOUT DIFF 2020-04-13 23:53:00 Grant Cheema [facility] IR DRAINAGE BY CATHETER 2020-04-13 20:35:08 Grant Cheema [facility] PERITONEAL OR [facility] RETROPERITONEAL BODY FLUID 2020-04-13 20:05:00 Neris Grier [facility] CULTURE(AEROBIC/ANAEROBIC) [facility] LDH TOTAL BODY FLUID 2020-04-13 20:05:00 Grant Cheema, [facility] GLUCOSE BODY FLUID 2020-04-13 20:05:00 Grant Cheema [facility] T.PROTEIN BODY FLUID 2020-04-13 20:05:00 Grant Cheema, [facility] BODY FLUID DIRECT COUNT 2020-04-13 20:05:00 Grant Cheema [facility] CBC WITH DIFF 2020-04-13 10:44:00 Katrina [facility] PHOSPHORUS 2020-04-13 10:44:[address] [facility] MAGNESIUM 2020-04-13 10:44:00 Katrina [facility] BASIC METABOLIC PANEL (NA, 2020-04-13 10:44:00 [facility], CL, CO2, GLUCOSE, BUN, Medica l Branch CREATININE, CA) CT ABDOMEN PELVIS W 2020-04-12 21:23:19 [facility] 2020-04-12 20:43:00 Becky [facility] URINE CULTURE 2020-04-12 20:43:00 Becky [facility] BLOOD CULTURE WORKUP 2020-04-12 18:51:00 Becky [facility] GRAM NEGATIVE BLOOD 2020-04-12 18:51:00 Rosaura Pena [facility] PATHOGENS DNA [facility] PROBE-ANAEROBIC BLOOD CULTURE SCREEN 2020-04-12 18:51:00 Becky [facility] BLOOD CULTURE SCREEN 2020-04-12 18:50:00 Becky [facility] CBC WITH DIFF 2020-04-12 08:46:00 Katrina [facility] PHOSPHORUS 2020-04-12 08:46:[address] [facility] MAGNESIUM 2020-04-12 08:46:00 Katrina [facility] BASIC METABOLIC PANEL (NA, 2020-04-12 08:46:00 Yosvany Herndon [facility] K, CL, CO2, GLUCOSE, BUN, Medica l Branch CREATININE, CA) CBC WITH DIFF 2020-04-11 08:54:00 Katrina [facility] PHOSPHORUS 2020-04-11 08:54:[address] [facility] MAGNESIUM 2020-04-11 08:54:00 Katrina [facility] BASIC METABOLIC PANEL (NA, 2020-04-11 08:54:00 Yosvany Herndon [facility] [place] K, CL, CO2, GLUCOSE, BUN, Medica l Branch CREATININE, CA) CBC WITH DIFF 2020-04-10 09:49:00 Katrina [facility] PHOSPHORUS 2020-04-10 09:49:[address] [facility] MAGNESIUM 2020-04-10 09:49:00 Katrina [facility] XR CHEST 1 VW 2020-04-09 11:27:[address] [facility] CBC WITH DIFF 2020-04-09 09:07:00 Katrina [facility] PHOSPHORUS 2020-04-09 09:07:[address] [facility] MAGNESIUM 2020-04-09 09:07:00 [facility] HEPATIC FUNCTION PANEL 2020-04-09 09:07:00 [facility] ([id number] (ALB,T.PRO,[facility] T,BU/BC,ALT,AST,ALK PHOS) BASIC METABOLIC PANEL (NA, 2020-04-09 09:07:00 [facility] K, CL, CO2, GLUCOSE, BUN, Medica l Branch CREATININE, CA) AC PANEL 20 + LACTIC ACID 2020-04-08 21:11:00 Yosvany Herndon [facility] POCT GLUCOSE (AUTOMATED) 2020-04-08 12:27:00 Bia Pedro [facility] AC PANEL 21 + LACTIC ACID 2020-04-08 09:34:00 Bigg Lawton [facility] POCT GLUCOSE (AUTOMATED) 2020-04-08 09:33:00 Bia Pedro [facility] CBC WITH DIFF 2020-04-08 09:26:00 Katrina [facility] MAGNESIUM 2020-04-08 09:26:00 Katrina[facility] BASIC METABOLIC PANEL (NA, 2020-04-08 09:26:00 Yosvany Herndon [facility] K, CL, CO2, GLUCOSE, BUN, Medica l Branch CREATININE, CA) POCT GLUCOSE (AUTOMATED) 2020-04-08 04:24:00 Phatak, Bia Uni [facility] POCT GLUCOSE (AUTOMATED) 2020-04-08 00:36:00 [facility]hatak, [facility] ([facility]) 2020-04-07 21:24:00 Phatak, Bia Uni [facility] POCT GLUCOSE (AUTOMATED) 2020-04-07 16:49:00 Griffin Pedroa [facility] AC PANEL 20 + LACTIC ACID 2020-04-07 14:14:00 [facility] WHOLE BLO[facility] 2020-04-07 13:53:00 Grant Cheema [facility] POCT GLUCOSE (AUTOMATED) 2020-04-07 12:50:00 Bia Pedro [facility] AC PANEL 20 + LACTIC ACID 2020-04-07 11:16:00 Yosvany Herndon [facility] MAGNESIUM 2020-04-07 08:48:00 Katrina [facility] BASIC METABOLIC PANEL (NA, 2020-04-07 08:48:00 Yosvany Herndon [facility] K, CL, CO2, GLUCOSE, BUN, Medica l Branch CREATININE, CA) CBC WITH DIFF 2020-04-07 08:48:00 Katrina [facility] XR CHEST 1 VW 2020-04-07 08:10:00 Rosaura Pena [facility] POCT GLUCOSE (AUTOMATED) 2020-04-07 04:36:00 Bia Pedro [facility] AC PANEL 21 + LACTIC ACID 2020-04-07 02:05:00 Bigg Lawton [facility] MRSA / MSSA SCREEN BY PCR, 2020-04-07 02:05:00 Grant Santana i [facility] BLOOD C[facility] S[facility]EN 2020-04-07 02:05:00 Grant Cheema [facility] POCT GLUCOSE (AUTOMATED) 2020-04-07 00:37:00 Bia Pedro [facility] HCV ANTIBODY 2020-04-06 23:44:[address] [facility] POCT GLUCOSE (AUTOMATED) 2020-04-06 23:43:00 Bia Pedro [facility] HIV 1/2 AG-AB WITH REFLEX 2020-04-06 23:30:[address] [facility] POCT GLUCOSE (AUTOMATED) 2020-04-06 22:14:00 Bia Pedro [facility] ECHO ROUTINE W/DOPPLER 2020-04-06 20:25:55 Katrina [facility] PROTHROMBIN TIME / INR 2020-04-06 19:00:00 Rosaura Pena [facility] [place] ACTIVATED PARTIAL THRMPLAS 2020-04-06 19:00:00 Becky [facility] [place] MAGNESIUM 2020-04-06 19:00:00 Becky [facility] BASIC METABOLIC PANEL (NA, 2020-04-06 19:00:00 [facility], CL, CO2, GLUCOSE, BUN, [facility] CREATININE, CA) COMP. METABOLIC PANEL 2020-04-06 19:00:00 Yosvany Herndon [facility] ([id number] CBC WITH DIFF 2020-04-06 19:00:00 Katrina [facility] AC PANEL 21 + LACTIC ACID 2020-04-06 18:59:00 Simi Dennis [facility] ABG+COOX+NA+K+GLU+CA2+ 2020-04-06 16:06:00 Bia [facility] INTUBATION 2020-04-06 16:04:59 Ana Syed [facility] XR CHEST 1 VW 2020-04-06 15:43:00 Katrina [facility] SURGICAL PATHOLOGY EXAM 2020-04-06 15:12:00 Juventino [facility] CENTRAL LINE 2020-04-06 14:52:37 Cynthia Herring [facility] E [facility] ARTERIAL LINE 2020-04-06 14:51:44 Ana Syed [facility] ASPIRATE OR ABSCESS 2020-04-06 14:50:29 Person, Juventino [facility] CULTURE(AEROBIC/ANAEROBIC) [facility] [employer] CULTURE 2020-04-06 14:50:29 Person, [facility] o f [facility] FUNGUS (ROUTINE) CULTURE 2020-04-06 14:50:29 Person, Juventino [facility] ABG+COOX+NA+K+GLU+CA2+ 2020-04-06 14:46:00 Bia Pedro [facility] HB ABO GROUPING 2020-04-06 14:39:00 Dana Sampson [facility] EXPLORATORY LAPAROTOMY 2020-04-06 13:51:00 Person, Juventino [facility] URINE CULTURE 2020-04-06 13:48:[address] [facility] XR KUB 2020-04-06 13:34:22 Grant Cheema, [facility] XR CHEST 1 VW 2020-04-06 13:34:[address] [facility] MAGNESIUM 2020-04-06 11:47:00 Becky [facility] BASIC METABOLIC PANEL (NA, 2020-04-06 11:47:00 Becky [facility] K, CL, CO2, GLUCOSE, BUN, [facility] l Porter CREATININE, CA) CBC WITH DIFF 2020-04-06 11:47:00 [facility] 2020-04-05 21:34:[address] [facility] XR KUB 2020-04-05 19:41:[address] [facility] MAGNESIUM 2020-04-05 09:44:00 [facility] BASIC METABOLIC PANEL (NA, 2020-04-05 09:44:00 Becky [facility] K, CL, CO2, GLUCOSE, BUN, Cathryn [facility] CREATININE, CA) CBC WITH DIFF 2020-04-05 09:44:00 Becky [facility] MAGNESIUM 2020-04-04 10:09:00 [facility] BASIC METABOLIC PANEL (NA, 2020-04-04 10:09:00 Becky [facility] K, CL, CO2, GLUCOSE, BUN, Cathryn [facility] CREATININE, CA) CBC WITH DIFF 2020-04-04 10:09:00 [facility] SURGICAL PATHOLOGY EXAM 2020-04-03 20:13:00 Mayela [facility] LAPAROSCOPIC COLECTOMY 2020-04-03 15:35:00 Mayela [facility] COLONOSCOPY 2020-04-03 15:35:00 Mayela [facility] COLECTOMY 2020-04-03 15:35:00 Mayela [facility] MAGNESIUM 2020-04-03 09:20:00 Becky [facility] BASIC METABOLIC PANEL (NA, 2020-04-03 09:20:00 Becky [facility] K, CL, CO2, GLUCOSE, BUN, [facility] CREATININE, CA) CBC WITH DIFF 2020-04-03 09:20:00 Becky [facility] HB ABO GROUPING 2020-04-02 22:45:00 Hugo Alfaro [facility] MAGNESIUM 2020-04-02 10:22:00 [facility] BASIC METABOLIC PANEL (NA, 2020-04-02 10:22:00 Becky [facility] K, CL, CO2, GLUCOSE, BUN, Cathryn [facility] CREATININE, CA) CBC WITH DIFF 2020-04-02 10:22:00 Becky [facility] COVID-19 (ID NOW RAPID 2020-04-01 23:02:00 Rosaura Pena [facility] TESTING) [facility] URINALYSIS 2020-03-31 11:25:00 Alex Lopez [facility] CT ABDOMEN PELVIS W 2020-03-31 00:17:06 Alex Lopez [facility]AST [facility] [place] [facility] XR CHEST 1 VW 2020-03-30 22:43:49 Colette Wygeri [facility] EKG-12 LEAD 2020-03-30 22:14:24 Doctor Unassotilia, [facility] Medical Porter PROTHROMBIN TIME / INR 2020-03-30 22:05:00 Alex Lopez [facility] ACTIVATED PARTIAL THRMPLAS 2020-03-30 22:05:00 Alex Lopez [facility] N-TERMINAL PRO-BNP 2020-03-30 22:05:00 Alex Lopez [facility] LIPASE 2020-03-30 22:05:00 Alex Lopez [facility] TROPONIN I 2020-03-30 22:05:00 Colette Wygeri [facility] HEPATIC FUNCTION PANEL 2020-03-30 22:05:00 Alex Lopez [facility] ([id number]) (ALB,T.PRO,BILI [facility] T,BU/BC,ALT,AST,ALK PHOS) BASIC METABOLIC PANEL (NA, 2020-03-30 22:05:00 Alex Lopez [facility] K, CL, CO2, GLUCOSE, BUN, Medica l Branch CREATININE, CA) CBC WITH DIFF 2020-03-30 22:05:00 Alex Lopez [facility] EKG-12 LEAD 2020-03-30 22:01:44 Alex Lopez [facility] HOSPITAL ADMISSION 2020-03-30 05:01:00 Doctor Unassigned, [facility] Name Medical [facility] MAGNESIUM 2020-03-26 09:57:00 Simin [facility] BASIC METABOLIC PANEL (NA, 2020-03-26 09:57:00 [facility] K, CL, CO2, GLUCOSE, BUN, Medica l Branch CREATININE, CA) CBC WITH DIFF 2020-03-26 09:57:00 Simin [facility] LACTIC ACID WHOLE BLOOD 2020-03-26 04:09:00 Sarah Duval [facility] COVID-19 (ID NOW RAPID 2020-03-26 02:01:00 Bernardo Donnelly [facility] TESTING) Medical [facility] CT ABDOMEN PELVIS W 2020-03-26 01:17:18 Bernardo Donnelly [facility] CONTRAST [facility] PHOSPHORUS 2020-03-26 00:39:00 Simin [facility] MAGNESIUM 2020-03-26 00:39:00 Simin [facility] HEPATIC FUNCTION PANEL 2020-03-26 00:39:00 Bernardo Donnelly [facility] ([id number]) (ALB,T.PRO,BILI Medical [facility] T,BU/BC,ALT,AST,ALK PHOS) BASIC METABOLIC PANEL (NA, 2020-03-26 00:39:00 Bernardo Donnelly [facility] K, CL, CO2, GLUCOSE, BUN, Medica l Branch CREATININE, CA) CBC WITH DIFF 2020-03-26 00:39:00 [facility]j [facility] EXTRA TUBE LT. BLUE 2020-03-26 00:39:00 Bernardo Donnelly [facility] HOSPITAL ADMISSION 2020-03-25 05:01:00 Doctor Unassigned, [facility] [place] [facility] PROTHROMBIN TIME / INR 2020-03-03 04:27:00 Ori Persaud [facility] ACTIVATED PARTIAL THRMPLAS 2020-03-03 04:27:00 Zahraa Persaud se [facility] XR ABDOMEN ACUTE SERIES 2020-03-03 02:15:00 Sabi [facility] PHOSPHORUS 2020-03-03 01:22:00 Ori Persaud [facility] MAGNESIUM 2020-03-03 01:22:00 Ori Persaud [facility] HEPATIC FUNCTION PANEL 2020-03-03 01:22:00 Sabi Begum [facility] ([id number]) (ALB,T.PRO,BILI Medical Branch T,BU/BC,ALT,AST,ALK PHOS) BASIC METABOLIC PANEL (NA, 2020-03-03 01:22:00 BegumSabi simons [facility] K, CL, CO2, GLUCOSE, BUN, Medica l Branch CREATININE, CA) CBC WITH DIFFERENTIAL 2020-03-03 01:22:00 Shy [facility] URINALYSIS 2020-03-03 01:22:00 Shy, [facility] LACTIC ACID WHOLE BLOOD 2020-03-03 01:22:00 Shy [facility] COVID-19 (ID NOW RAPID 2020-03-03 01:22:00 Shy [facility] TESTING) Medical Branch GALV/CLC ONLY - URINE DRUG 2020-02-27 20:02:00 Shana [facility] (IMMUNOASSAY) - [facility] COMPREHENSIVE DRUG SCREEN FREE T4 2020-02-27 17:48:00 [facility] THYROID STIMULATING 2020-02-27 17:48:00 [facility] H[facility] FREE T3 2020-02-27 17:48:00 [facility] CT ABDOMEN PELVIS W 2020-02-26 18:27:28 Alondra Fay [facility] CONTRAST [facility] COVID-19 (ID NOW RAPID 2020-02-26 06:41:00 Shy [facility] TESTING) Medical Branch XR ABDOMEN ACUTE SERIES 2020-02-26 04:48:30 Shy [facility] LIPASE 2020-02-26 03:35:[address] [facility] HEPATIC FUNCTION PANEL 2020-02-26 03:35:00 Shy [facility] ([id number]) (ALB,T.PRO,BILI Medical Branch T,BU/BC,ALT,AST,ALK PHOS) BASIC METABOLIC PANEL (NA, 2020-02-26 03:35:00 Sabi Begum [facility] K, CL, CO2, GLUCOSE, BUN, Medica l Branch CREATININE, CA) CBC WITH DIFFERENTIAL 2020-02-26 03:35:00 Shy [facility] LACTIC ACID WHOLE BLOOD 2020-02-26 03:35:00 Shy [facility] EXTRA TUBE LT. BLUE 2020-02-26 03:35:00 Shy [facility] MAGNESIUM 2020-02-03 16:38:00 Simin [facility] BASIC METABOLIC PANEL (NA, 2020-02-03 16:38:00 Simin, [facility] K, CL, CO2, GLUCOSE, BUN, Medica l Branch CREATININE, CA) XR KUB 2020-01-31 16:59:00 Helene Griffin [facility] BASIC METABOLIC PANEL (NA, 2020-01-31 06:15:00 Kirill Henson [facility] K, CL, CO2, GLUCOSE, BUN, Medica l Branch CREATININE, CA) CBC WITH DIFFERENTIAL 2020-01-31 06:15:00 Kirill Henson [facility] BASIC METABOLIC PANEL (NA, 2020-01-29 10:06:00 Nataly Southwell [facility] K, CL, CO2, GLUCOSE, BUN, Medica l Porter CREATININE, CA) CBC WITH DIFFERENTIAL 2020-01-29 10:06:00 [facility] ([facility] MOLECULAR 2020-01-29 03:56:00 Liz [facility] TESTING) Medical Branch LACTIC ACID WHOLE BLOOD 2020-01-29 03:55:00 Bernardo [facility] EXTRA TUBE LAV 2020-01-29 03:55:00 Liz [facility] EXTRA TUBE LT. BLUE 2020-01-29 03:55:00 Liz [facility] EXTRA TUBE LT. GREEN 2020-01-29 03:55:00 Liz [facility] URINALYSIS 2020-01-29 01:35:00 Silvia Jurado I [facility] COVID-19 (ID NOW RAPID 2020-01-29 01:32:00 Bernardo Donnelly [facility] TESTING) Medical Branch CT ABDOMEN PELVIS W 2020-01-28 23:53:23 Silvia Jurado I [facility] CONTRAST Medical Branch LIPASE 2020-01-28 23:19:00 [facility]CTION PANEL 2020-01-28 23:19:00 Adrien Silvia [facility] ([id number]) (ALB,T.PRO,BILI Medical Branch T,BU/BC,ALT,AST,ALK PHOS) BASIC METABOLIC PANEL (NA, 2020-01-28 23:19:00 Sondra Jurado [facility] K, CL, CO2, GLUCOSE, BUN, Medica l Porter CREATININE, CA) CBC WITH DIFFERENTIAL 2020-01-28 23:19:00 UjradoSilvia [facility] HOSPITAL ADMISSION 2020-01-28 05:01:00 Doctor Unassigned, [facility] [place] [facility] BASIC METABOLIC PANEL (NA, 2020-01-26 18:06:00 Simin [facility] K, CL, CO2, GLUCOSE, BUN, Medica l Porter CREATININE, CA) MAGNESIUM 2020-01-26 08:17:00 Liz [facility] XR KUB 2020-01-26 06:00:00 Sindhu [facility] Medical Branch PHOSPHORUS 2020-01-25 09:43:00 Liz [facility] COVID-19 (ID NOW RAPID 2020-01-25 04:31:00 Sabi Begum [facility] TESTING) Medical Porter LACTIC ACID WHOLE BLOOD 2020-01-25 04:27:00 Sabi [facility] CT ABDOMEN PELVIS W 2020-01-25 02:15:22 Sabi Begum [facility]AST [facility] URINALYSIS 2020-01-25 01:05:[address] [facility] LIPASE 2020-01-25 00:42:[address] [facility] HEPATIC FUNCTION PANEL 2020-01-25 00:42:00 Sabi Begum [facility] ([id number]) (ALB,T.PRO,BILI Medical Branch T,BU/BC,ALT,AST,ALK PHOS) BASIC METABOLIC PANEL (NA, 2020-01-25 00:42:00 Sabi Begum [facility] K, CL, CO2, GLUCOSE, BUN, Medica l Branch CREATININE, CA) CBC WITH DIFFERENTIAL 2020-01-25 00:42:00 Sabi Begum [facility] [id number] 2020-01-09 00:00:00 BG.01 MASON [facility] EXTERNAL PROVIDER RECORDS 2019-12-28 05:01:00 Doctor Unassigned, [facility] [place] [facility] Plan of Care Planned Activity Planned Date Details Comments Source Future Scheduled 2029-03-23 Screening for malignant [facility] 00:00:00 neoplasm of colon Medical Ce [facility]ter (procedure) [code = 396944394] Future Scheduled 2029-03-23 Screening for malignant [facility] Test 00:00:00 neoplasm of colon Medical Ce [facility]ter (procedure) [code = 186251367] Future Scheduled 2029-03-23 Screening for malignant [facility] Test 00:00:00 neoplasm of colon Medical Ce [facility]ter (procedure) [code = 600243293] Future Scheduled 2029-03-23 Screening for malignant [facility] Test 00:00:00 neoplasm of colon Medical Ce [facility]ter (procedure) [code = 290765184] Future Scheduled 2029-03-23 Screening for malignant [facility] Test 00:00:00 neoplasm of colon Medical Ce nter (procedure) [code = 325565660] Future Scheduled 2029-03-23 Screening for malignant [facility] Test 00:00:00 neoplasm of colon Medical Ce [facility]ter (procedure) [code = 224433072] Future Scheduled 2029-03-23 Screening for malignant [facility] Test 00:00:00 neoplasm of colon Medical Ce nter (procedure) [code = 675530939] Future Scheduled 2029-03-23 Screening for malignant [facility] Test 00:00:00 neoplasm of colon Medical Ce nter (procedure) [code = 671833756] Future Scheduled 2029-03-23 Screening for malignant [facility] Test 00:00:00 neoplasm of colon Medical Ce nter (procedure) [code = 271326915] Future Scheduled 2029-03-23 Screening for malignant [facility] Test 00:00:00 neoplasm of colon Medical Ce nter (procedure) [code = 874900148] Future Scheduled 2029-03-23 Screening for malignant [facility] Test 00:00:00 neoplasm of colon Medical Ce nter (procedure) [code = 151827608] Future Scheduled 2029-03-23 Screening for malignant [facility] Test 00:00:00 neoplasm of colon Medical Ce [facility]ter (procedure) [code = 956331859] Future Scheduled 2029-03-23 Screening for malignant [facility] Test 00:00:00 neoplasm of colon Medical Ce [facility]ter (procedure) [code = 357932300] Future Scheduled 2022-05-24 IMM Influenza Seasonal H [...] 00:00:00 neoplasm of colon (procedure) [code = 198096060] Future Scheduled 2020-02-14 SHINGLES VACCINES (1 of [...] [facility] 2) [code = [facility] VACCINES (1 of 2)] Future Scheduled 2020-02-14 Screening for malignant [facility] Test 00:00:00 neoplasm of colon (procedure) [code = 676603547] Future Scheduled 2020-02-14 Screening for malignant [facility] Test 00:00:00 neoplasm of colon (procedure) [code = 112593125] Future Scheduled 2020-02-14 Screening for malignant [facility] Test 00:00:00 neoplasm of colon (procedure) [code = 337183384] Future Scheduled 2005 Lipid panel (procedure) [facility] 00:00:00 [code = 12972019] Medical Ce nter Future Scheduled 2005 Lipid panel (procedure) [facility] Test 00:00:00 [code = 21258807] Medical Ce nter Future Scheduled 2005 Lipid panel (procedure) [facility] 00:00:00 [code = 54824573] Medical Ce nter Future Scheduled 2005 Lipid panel (procedure) [facility] 00:00:00 [code = 03220073] Medical Ce nter Future Scheduled 2005 Lipid panel (procedure) [facility] 00:00:00 [code = 39314326] Medical Ce nter Future Scheduled 2005 Lipid panel (procedure) [facility] 00:00:00 [code = 87924286] Medical Ce nter Future Scheduled 2005 Lipid panel (procedure) [facility] 00:00:00 [code = 55499570] Medical Ce nter Future Scheduled 1989 DTAP/TDAP/TD [...] [facility] 00:00:00 [code = CT Colonography [facility] (combo)] Future Scheduled 1970 Screening for malignant [facility] 00:00:00 neoplasm of colon Medical Ce nter (procedure) [code = 006068710] Future Scheduled 1970 Screening for malignant [facility] Test 00:00:00 neoplasm of colon Medical Ce nter (procedure) [code = 107691117] Future Scheduled 1970 Sigmoidoscopy [code = CH [...] colon Medical Ce nter (procedure) [code = 539468257] Future Scheduled 1970 Screening for malignant [facility] 00:00:00 neoplasm of colon Medical Ce [facility]ter (procedure) [code = 321273070] Future Scheduled 1970 Sigmoidoscopy [code = [facility]oscopy] Medical Cent[facility] r Future Scheduled 1970 CT Colonography (combo) [facility] 00:00:00 [code = CT Colonography [facility] (combo)] Future Scheduled 1970 Screening for malignant [facility] 00:00:00 neoplasm of colon Medical Ce nter (procedure) [code = 565305144] Future Scheduled 1970 Screening for malignant [facility] 00:00:00 neoplasm of colon Medical Ce nter (procedure) [code = 589461254] Future Scheduled 1970 Sigmoidoscopy [facility]code = [facility]oscopy] Medical Cente r Future Scheduled 1970 CT Colonography (combo) [facility] 00:00:00 [code = CT Colonography [facility] (combo)] Future Scheduled 1970 Screening for malignant [facility] 00:00:00 neoplasm of colon Medical Ce nter (procedure) [code = 478370252] Future Scheduled 1970 Screening for malignant [facility] 00:00:00 neoplasm of colon Medical Ce nter (procedure) [code = 745296231] Future Scheduled 1970 Sigmoidoscopy [code = [facility] S[facility]oscopy] Medical Cente r Future Scheduled 1970 CT Colonography (combo) [facility] 00:00:00 [code = CT Colonography [facility] (combo)] Future Scheduled 1970 Screening for malignant [facility] 00:00:00 neoplasm of colon Medical Ce nter (procedure) [code = 516032571] Future Scheduled 1970 Screening for malignant [facility] 00:00:00 neoplasm of colon Medical Ce nter (procedure) [code = 342520918] Future Scheduled 1970 Sigmoidoscopy [code = [facility] S[facility]oidoscopy] Medical Cente r Future Scheduled 1970 CT Colonography (combo) [facility] 00:00:00 [code = CT Colonography [facility] (combo)] Future Scheduled 1970 Screening for malignant [facility] 00:00:00 neoplasm of colon Medical Ce nter (procedure) [code = 014189343] Future Scheduled 1970 Screening for malignant [facility] Test 00:00:00 neoplasm of colon Medical Ce nter (procedure) [code = 722356711] Future Scheduled 1970 Sigmoidoscopy [code = [facility]:00 Sigmoidoscopy] Medical Cente r Future Scheduled 1970 CT Colonography (combo) [facility] 00:00:00 [code = CT Colonography [facility] Center (combo)] Encounters Start End Encounter Admission Attending Care Care Encounter Source Date/Time Date/Time Type Type Clinicians Facility Department ID 2021-06-25 Emergency [facility] [id number] Univers 05:25:12 ity of [facility] 2021-06-25 Emergency [facility] [id number] Univers 01:41:18 ity of [facility] 2021-06-24 Emergency [facility] [id number] Univers 22:38:17 ity of [facility] 2021-06-22 Emergency [facility] [id number] Univers 21:40:44 ity of [facility] 2021-06-22 Emergency [facility] [id number] Univers 13:55:03 ity of [facility] 2021-06-22 Emergency [facility] [id number] Univers 05:54:16 ity of [facility] 2021-06-21 Emergency [facility] [id number] Univers 22:33:24 ity of [facility] 2021-06-21 Emergency [facility] [id number] Univers 22:33:24 ity of [facility] 2021-06-21 Emergency [facility] [id number] Univers 22:22:08 ity of [facility] 2021-06-21 Emergency [facility] [id number] Univers 20:04:56 ity of [facility] 2021-06-21 Emergency [facility] [id number] Univers 19:53:56 ity of [facility] 2021-06-21 Emergency [facility] [id number] Univers 19:37:27 ity of [facility] 2021-06-21 Emergency [facility] [id number] Univers 19:36:41 ity of [facility] 2021-06-21 Emergency [facility] [id number] Univers 17:11:26 ity of [facility] 2021-06-21 Emergency [facility] [id number] Univers 16:44:38 ity of [facility] 2021-06-21 Emergency [facility] [id number] Univers 11:19:16 ity of [facility] 2021-06-21 Emergency [facility] [id number] Univers 10:16:06 ity of [facility] 2021-06-21 Emergency [facility] [id number] Univers 06:08:42 ity of [facility] 2021-06-21 Emergency [facility] [id number] Univers 04:43:23 ity of [facility] 2021-06-21 Emergency [facility] [id number] Univers 04:42:49 ity of [facility] 2021-06-20 Emergency X [facility] PAKO [id number] Univers 18:31:02 OSMAR ity of [facility] 2020-02-23 Inpatient HCAPM LENNY [id number] [facility] 18:42:00 89 [facility] 2020-02-17 Inpatient EM Avtar, HCAPM MAS [id number] [facility] 00:22:00 Oladipo 75 [facility] 2020-01-05 Inpatient UR Perea, HCAPM MEDI.01 [id number] [facility] 20:23:00 Mark 40 [facility] 2019-12-13 Inpatient HCAMN JULIA [id number] [facility] 17:52:00 47 [facility] 2022-04-14 2022-04-14 Transition MELANIE Valdes [id number] Univers 00:00:00 00:00:00 of Care Miryam RECINOS [id number] [id number] [place] [id number] [facility] 403 Branch 2022-04-09 2022-04-10 Emergency X [facility] ERT [id number] Univers 20:38:00 00:14:00 FOLUSHO ity of [facility] 2022-04-09 2022-04-10 Emergency [facility] [id number] Univers 20:38:00 00:14:00 Folzulyo [facility] 350.1.13.10 [id number] [id number] [facility] 084 Branch 2022-04-09 2022-04-09 Transition MELANIE Valdes [id number] Univers 00:00:00 00:00:00 of Care Miryam TRINIDADY [id number] [id number] [place] [id number] [facility] [address] Branch 2022-04-02 2022-04-08 [facility] [id number] Univers 11:42:00 12:30:00 rai LORA [facility] 2022-04-02 2022-04-08 Hospital Rekha Sheehan [facility] [id number] Univers 11:42:00 12:30:00 Encounter Juventino Thomas [facility] [id number] ity of [facility] Diogo Lora 4.2.7.2.686 [place] [id number] [address] ([facility]) 2022-03-29 2022-03-29 Emergency EM White, HCACL AERS [id number] [facility] 14:26:00 16:45:00 Sabi Adams [facility] 2022-03-29 2022-03-29 Emergency EM White, HCACL HCACL [id number] [facility] 14:26:00 16:45:[id number] [place] [address] 2022-03-25 2022-03-26 Inpatient E RICHARD BL MED [id number] BL 13:38:00 10:16:00 , YESSI 2022-03-15 2022-03-18 Emergency E RADHA, [facility] MED [id number] [facility] 13:36:00 18:59:00 JULIO 2022-03-13 2022-03-13 Emergency [facility] [id number] Lynne 15:33:00 20:25:00 [facility] 2022-03-13 2022-03-13 Emergency [facility] [id number] Lynne 15:33:00 20:25:00 [facility] 2022-03-13 2022-03-13 Outpatient RONALD, [id number] [place]ne 00:00:00 00:00:00 [facility] 2022-03-06 2022-03-09 Inpatient ER [facility] Emergency [id number] [facility] 12:16:00 12:55:00 2022-03-06 2022-03-09 [facility] [id number] [facility] 12:16:00 12:55:00 Encounter Norma Montalvo Fang-Ying M edical Heinen, [facility] 2022-03-06 2022-03-09 [facility] [id number] 12:16:00 12:55:00 Encounter Norma Montalvo Fang-Ying M edical Heinen, [facility] 2022-03-06 2022-03-06 Outpatient [facility] [id number] [facility] 00:00:00 23:59:00 Jennifer gordon of Medicin e 2022-03-06 2022-03-06 Orders [facility] [id number] 00:00:00 00:00:00 Only [facility] 2022-03-06 2022-03-[address] [facility] [id number] [facility] 00:[facility] 00:00:00 [facility] 2022-03-06 2022-03-06 Orders [facility] [id number] 00:00:00 00:00:00 Only [facility] 2022-03-06 2022-03-[address] [facility] [id number] [facility] 00:[facility] 00:00:00 [facility] 2022-02-18 2022-02-20 [facility] [id number] [place] 13:58:00 11:55:00 [facility] Infants Rufino Lazaro Roberto 2022-02-18 2022-02-20 [facility] [id number] [place] 13:58:00 11:55:00 [facility] Rufino Lazaro Roberto 2022-02-18 2022-02-18 Emergency [facility] [id number] [place] 15:19:05 15:23:18 [facility] 2022-02-18 2022-02-18 [facility] [id number] [place] 13:58:00 13:58:00 [facility] 2022-02-18 2022-02-18 [id number] [place] 00:00:00 00:00:00 , OSCAR Daniels 2022-02-07 2022-02-11 [facility] [id number] [place] 13:40:00 13:22:00 [facility] 2022-[facility]-07 2022-02-11 [facility] [id number] [place] 13:40:00 13:22:00 [facility] 2022-02-07 2022-02-07 Outpatient 1 DAILY ISLAS [facility] [id number] [place] 13:40:00 13:40:00 [facility] 2022-01-30 2022-01-30 Emergency [facility] [id number] [address] [place] [address] 17:02:00 18:29:00 Dwain 53 [facility] are Medical Center 2022-01-30 2022-01-30 Emergency SEAN Pacheco, [facility] [id number] [facility] 17:02:00 18:29:00 Dwain [id number] [facility] 2022-01-22 2022-01-22 Emergency [facility] [id number] Lynne 17:24:00 20:39:00 [facility] 2022-01-22 2022-01-22 Emergency [facility] [id number] Lynne 17:24:00 20:39:00 [facility] 2022-01-16 2022-01-21 Emergency Raymon Martin [facility] [id number] [place] 11:04:00 18:08:00 Karin Bassett Julian C Agrawal, Tien P 2022-01-16 2022-01-21 Emergency Raymon Martin [facility] [id number] Lynne 11:04:00 18:08:00 Karin Bassett Julian C Agrawal, Tien P 2022-01-19 2022-01-19 Outpatient [facility] [id number] Lynne 12:34:08 13:29:31 [facility] 2022-01-16 2022-01-16 Outpatient [facility] [id number] Lynne 19:42:28 20:01:28 [facility] 2022-01-16 2022-01-16 Outpatient 1 DANYELLE [facility] [id number] [place] 11:04:00 11:04:00 KARIN Daniels 2022-01-10 2022-01-11 Emergency Bert Reed [facility] [id number] Maged 10:58:00 11:20:00 Helene Anderson [facility] Merissa Richards 2022-01-10 2022-01-11 Emergency Bert Reed [facility] [id number] Maged 10:58:00 11:20:00 Helene Anderson [facility] Merissa Richards Q 2022-01-10 2022-01-10 Outpatient 1 JUSTIN [facility] [id number] [place] 10:58:00 10:58:00 [facility] 2022-01-08 2022-01-09 Emergency [facility] [id number] Lynne 17:57:00 02:50:00 [facility] 2022-01-08 2022-01-09 Emergency [facility] [id number] [place] 17:57:00 02:50:00 [facility] 2022-01-08 2022-01-08 Emergency [facility] [id number] Lynne 21:40:34 21:50:19 [facility] 2021-09-23 2021-09-23 Emergency EM [facility]affaele [facility] [id number] [facility] 19:35:00 21:10:[address] [place] [address] 2021-09-13 2021-09-13 Emergency X HARKEY, [facility] ERT [id number] Univers 21:20:00 22:36:00 MICKEY y [facility] 2021-09-13 2021-09-13 Emergency Harkey, [facility] 1.2.333.528 [id number] Univers 21:20:00 22:36:00 [facility] 350.1.13.10 it y of [place] 4.2.7.2.686 [facility] [phone] [address] ([facility]) 2021-09-13 2021-09-13 Emergency Raffaele Pitts [facility] AERS [id number] [facility] 14:57:00 16:37:00 06 [facility] 2021-09-12 2021-09-12 Emergency X MORRICAL, [facility] ERT [id number] Univers 14:25:00 17:51:00 [facility] 2021-09-12 2021-09-12 Emergency Morrical, TRAUMA 1.2.840.114 [id number] Univers 14:25:00 17:51:00 [facility] 350.1.13.10 ity of 4.2.7.2.686 [facility] [phone] [address] 2021-09-12 2021-09-12 Emergency X JAMEY, [facility] ERT [id number] Univers 06:20:00 10:10:00 CONSTANTIN [facility] 2021-09-12 2021-09-12 Emergency Dalmedo, Alona TRAUMA 1.2.840 .114 [id number] Univers 06:20:00 10:10:00 Constantin Concepcion GROESBECK 350.1.13.10 it[place] [place] [phone] [facility] 014 Branch 2021-09-08 2021-09-09 Emergency X TARA [facility] ERT [id number] Univers 23:01:00 01:30:00 SEBASTIAN ity of [facility] 2021-09-08 2021-09-09 Emergency Tara, TRAUMA 1.2.316.672 [id number] Univers 23:01:00 01:30:00 Sebastain [facility] 350.1.13.10 ity [place] [place] [phone] [facility] 014 Branch 2021-09-07 2021-09-07 Emergency X TARA [facility] ERT [id number] Univers 19:24:00 23:44:00 SEBASTIAN ity of [facility] 2021-09-07 2021-09-07 Emergency Tara, TRAUMA 1.2.155.761 [id number] Univers 19:24:00 23:44:00 Sebastian [facility] 350.1.13.10 ity [place] [place] [phone] [facility] 014 Branch 2021-09-06 2021-09-06 Emergency X TARA [facility] ERT [id number] Univers 15:35:00 17:52:00 SEBASTIAN ity of [facility] 2021-09-06 2021-09-06 Emergency Tara, TRAUMA 1.2.353.754 [id number] Univers 15:35:00 17:52:00 Sebastian [facility] 350.1.13.10 ity of [place]2.7.[place].[address] [place] [phone] [facility] 014 Branch 2021-09-06 2021-09-06 Transition MELANIE Vallejo 1.2.840.114 [id number] Univers 00:00:00 00:00:00 of Care Emililaurel RECINOS 350.1.13.10 ity of [place]2.7.2.[address] [place] [phone] [facility] 403 Branch 2021-08-30 2021-09-05 Inpatient X PHATA, [facility] PAKO [id number] Univers 16:53:00 16:00:00 ity of [facility] 2021-08-30 2021-09-05 [facility] Gayatri Gu Merissa KNOX 1 .2.840.114 [id number] Univers 16:53:00 16:00:00 Encounter AndreaSophia Clare MAGGY 350.1 .13.10 ity of [facility] 4.2.7.2.686 [facility] [phone] Medical 097 Branch 2021-09-03 2021-09-03 Surgery [facility] MARGARITA 1.2.840.114 [id number] Univers 07:15:00 10:04:00 MAGGY 350.1.13.10 it y of [facility] 4.2.7.2.[phone] [facility] 103 Branch 2021-08-29 2021-08-29 Emergency X IBIKUNLE, [facility] ERT [id number] Univers 17:15:00 20:03:00 FOLUSHO ity of [facility] 2021-08-29 2021-08-29 Emergency Ibikunle, TRAUMA 1.2.840.114 [id number] Univers 17:15:00 20:03:00 [facility] F CENTER 350.1.13.10 ity of 4.2.7.2.686 [facility] s [phone] [facility] 014 Branch 2021-07-29 2021-08-05 Inpatient X [facility] PAKO [id number] Univers 20:15:00 07:43:00 ity of [facility] 2021-07-29 2021-08-05 Hospital Jonah Rees 1.2.840.1 14 [id number] Univers 20:15:00 07:43:00 Encounter Karin Myers 350.1.13.1 0 ity of [facility] 4.2.7.2.[address] [place] [phone] [facility] 091 Branch 2021-07-29 2021-07-29 Transition Vallejo, SHEARN 1.2.840.114 [id number] Univers 00:00:00 00:00:00 of Care Emili TRINIDADY 350.1.13.10 ity of [place]2.7.[place].[address] [place] [phone] [facility] 403 Branch 2021-07-27 2021-07-27 Emergency EM Kateryna, HCAMN JULIA [id number] [facility] 10:15:00 12:36:[address] [place] [address] 2021-07-23 2021-07-26 Inpatient X BIA PEDRO [facility] PAKO [id number] Univers 00:39:00 14:50:00 ity of [facility] 2021-07-23 2021-07-26 [facility] Sabi Schultz 1.2.840 .114 [id number] Univers 00:39:00 14:50:00 Encounter LeonardoctaviaBia 350.1.13.10 ity of [facility] 4.2.7.2.[phone] [facility] 093 Branch 2021-07-22 2021-07-22 Emergency EM Marcelina[facility] [id number] [facility] 04:25:00 08:20:00 Gabriella Mar [facility] 2021-06-27 2021-06-27 Emergency EM Bridgett, HCACL AERS [id number] [facility] 15:31:00 17:37:00 Sabi Pollard [facility] 2021-06-25 2021-06-25 Orders Doctor BERNARDO 1.2.840.114 [id number] Univers 00:00:00 00:00:00 Only Unassigned, MAGGY 350.1.13.10 ity of [place] [facility] 4.2.7.2.[phone] [facility] 009 Branch 2021-05-31 2021-06-04 Emergency Willie Garrett [facility] 1.2.840.1 14 [id number] Univers 17:10:00 16:38:00 Clementine Castellon [facility] 350.1.13.10 ity of Sabi Gann 4.2.7.2.686 [place] Tamika Lyle [place] [phone] [facility] 116 Branch ([facility]) 2021-05-20 2021-05-21 Emergency Bernardo Donnelly [facility] 1.2.840.114 [id number] Univers 14:29:00 17:10:00 [facility] 350.1.13.10 it[place] [phone] [facility] 116 Branch ([facility]) 2021-05-10 2021-05-10 Transition VallejoAsiaeddie 1.2.840.114 [id number] Univers 00:00:00 00:00:00 of Care Emili Recinos 350.1.13.10 ity of [place] 4.2.7.2.686 [facility] [phone] [facility] 403 Branch 2021-05-07 2021-05-09 Hospital Beto Alona [facility] 1.2.840.11 [id number] Univers 19:23:00 15:26:00 Encounter Diogo Keane [facility] 350.1.13. 10 ity of Abad Watson [place] 4.2.7.2.686 [facility] [phone] [facility] 114 Branch ([facility]) 2021-04-28 2021-05-01 Inpatient [facility] [id number] [facility] 21:05:00 14:18:[address] [facility] 2020-09-26 2020-09-26 Emergency Jose [facility] 1.2.117.556 [id number] Univers 16:56:00 23:00:00 Mariaelena Oropeza 350.1.13.10 i ty of [place] [phone] [facility] 084 Branch 2020-08-22 2020-08-24 Emergency Funmilayo Pinzon [facility] 1.2.8 40.114 [id number] Univers 15:31:00 14:20:00 [facility] 350.1.13.10 ity of Ori Persaud [place] 4.2.7.2.686 [facility] [phone] [facility] 114 Branch ([facility]) 2020-07-09 2020-07-09 Emergency Mutendereki [facility] 1.2.840.114 [id number] Univers 16:23:00 19:43:00 , Juan M Chau 350.1.13.10 ity of [place] [phone] [facility] 014 Branch ([facility]) 2020-06-15 2020-06-15 Patient Saira Goodman 1.2.840.114 [id number] Univers 00:00:00 00:00:00 Outreach E Recinos 350.1.13.10 i ty of [place] 4.2.7.2.[address] [place] [phone] [facility] [address] 2020-06-12 2020-06-12 Patient Saira Goodman 1.2.840.114 [id number] Univers 00:00:00 00:00:00 Outreach E Recinos 350.1.13.10 i ty [place] [phone] [address] 2020-06-08 2020-06-08 Patient Melanie Emanuel 1.2.840.114 [id number] Univers 00:00:00 00:00:00 Outreach Mela Nolberto Recinos 350.1.13.10 ity of [place] [phone] [address] 2020-06-07 2020-06-07 Patient Saira Goodman 1.2.840.114 [id number] Univers 00:00:00 00:00:00 Outreach E Recinos 350.1.13.10 i ty of [place] [phone] [address] 2020-06-05 2020-06-05 Emergency Bishnu [facility] 1.2.840.114 [id number] Univers 06:47:00 10:55:00 More Oropeza 350.1.13.10 ity of [place] 4.2.7.2.[place] [phone] [facility] 084 Branch 2020-06-04 2020-06-04 Emergency Andrzej [facility] 1.2.348.495 [id number] Univers 10:36:00 13:38:00 [facility]ly [facility] 350.1.13.10 it y [place] [phone] [facility] 014 Branch ([facility]) 2020-06-04 2020-06-04 Patient Saira Goodman 1.2.840.114 [id number] Univers 00:00:00 00:00:00 Outreach E Recinos 350.1.13.10 i ty [place] [phone] [address] 2020-06-04 2020-06-04 Patient Melanie Emanuel 1.2.840.114 [id number] Univers 00:00:00 00:00:00 Outreach Mela Arvizu Recinos 350.1.13.10 ity of [place] [phone] [address] 2020-06-01 2020-06-01 Transition Melanie Valle[place] 1.2.840.114 [id number] Univers 00:00:00 00:00:00 of Care Emili Recinos 350.1.13.10 ity of [place]2.7[place] [phone] [address] 2020-05-22 2020-05-31 Hospital Alex Lopez 1.2.840.11 4 [id number] Univers 14:42:00 18:40:00 Encounter LeonardoctaviaGriffina Maggy 350.1.13.10 ity of [facility] 4.2.7.2.686 [place]avi [place] [phone] [place] 970648 [place] 2020-05-31 2020-05-31 Patient Saira Goodman 1.2.840.114 [id number] Univers 00:00:00 00:00:00 Outreach E Recinos 350.1.13.10 i ty [place] [phone] [address] 2020-05-23 2020-05-23 Outpatient R [facility] [id number] Univers 10:00:00 10:00:00 [id number] ity of [facility] 2020-05-23 2020-05-23 Patient Saira Goodman 1.2.840.114 [id number] Univers 00:00:00 00:00:00 Outreach E Recinos 350.1.13.10 i ty [place] [phone] [address] 2020-05-23 2020-05-23 Patient Saira Goodman 1.2.840.114 [id number] Univers 00:00:00 00:00:00 Outreach E Recinos 350.1.13.10 i ty [place] 4[place] [phone] [address] 2020-05-23 2020-05-23 Patient Melanie Emanuel 1.2.840.114 [id number] Univers 00:00:00 00:00:00 Outreach Mela Arvizu Recinos 350.1.13.10 ity of [place] 4[place]2.[place] [phone] [address] 2020-05-21 2020-05-21 Emergency [facility] 1.2.067.869 [id number] Univers 20:52:00 23:41:00 Formerly [facility] 350.1.13.10 it y [place] [phone] [address] ([facility]) 2020-05-20 2020-05-20 Emergency Unknown, TRAUMA 1.2.840.114 [id number] Univers 07:04:00 15:13:00 Attending CENTER 350.1.13.10 [place] [phone] [address] 2020-05-19 2020-05-20 Emergency [facility] 1.2.840.114 [id number] Univers 21:29:00 06:12:00 [facility] 350.1.13.10 it [place] [phone] [address] ([facility]) 2020-05-18 2020-05-18 Patient Saira Goodman 1.2.840.114 [id number] Univers 10:18:59 11:28:59 Outreach E Recinos 350.1.13.10 i ty of [place] 4.[place].7[place]2.[place] [id number] [address] 2020-05-18 2020-05-18 Outpatient R [facility] [id number] Univers 09:30:00 09:30:00 [id number] ity of [facility] 2020-05-18 2020-05-18 Patient Asia Emanueleddie 1.2.840.114 [id number] Univers 00:00:00 00:00:00 Outreach Mela Trinidady 350.1.13.10 ity of [place] 4[place]2.[place] [phone] [address] 2020-05-17 2020-05-17 Outpatient R [facility] [id number] Univers 10:00:00 10:00:00 [id number] ity [facility] 2020-05-17 2020-05-17 Patient Saira Goodman Melanie 1.2.840.114 [id number] Univers 00:00:00 00:00:00 Outreach Heidi Trinidady 350.1.13.10 i ty [place] [phone] [address] 2020-05-17 2020-05-17 Patient Jenae Melanie 1.2.840.114 [id number] Univers 00:00:00 00:00:00 Outreach Mela Nolberto Bacilio 350.1.13.10 ity of [place] [phone] [address] 2020-05-15 2020-05-15 Patient Melanie Emanuel 1.2.840.114 [id number] Univers 00:00:00 00:00:00 Outreach Mela Trinidady 350.1.13.10 ity of [place] [phone] [address] 2020-05-14 2020-05-14 Transition Melanie Valle[place] 1.2.840.114 [id number] Univers 00:00:00 00:00:00 of Care Emili Recinos 350.1.13.10 ity of [place] [id number] [address] 2020-05-04 2020-05-12 [facility] Lora Hall 1.2. 840.114 [id number] Univers 21:09:00 14:03:00 Encounter Carol Ann Jason 350.1.13.10 ity of [facility] 4.2.7.2.686 Javi [place] [phone] [place] 9[address] 2020-05-10 2020-05-10 Patient Saira Goodman Melanie 1.2.840.114 [id number] Univers 00:00:00 00:00:00 Outreach E Recinos 350.1.13.10 i ty [place] [id number] [address] 2020-05-09 2020-05-09 Transition Melanie Valle[place] 1.2.840.114 [id number] Univers 00:00:00 00:00:00 of Care Emili Trinidady 350.1.13.10 ity of [place] [phone] [address] 2020-05-08 2020-05-08 Patient Saira Goodman Melanie 1.2.840.114 [id number] Univers 00:00:00 00:00:00 Outreach E Recinos 350.1.13.10 i ty [place] [phone] [address] 2020-05-02 2020-05-03 Emergency [facility] 1.2.943.715 [id number] Univers 23:37:00 01:53:00 Joel S Johnna 350.1.13.10 ity of [place] 4.2.7.2.[place] [phone] [facility] [address] 2020-05-03 2020-05-03 Patient Saira Goodman Melanie 1.2.840.114 [id number] Univers 00:00:00 00:00:00 Outreach E Recinos 350.1.13.10 i ty [place] [phone] [address] 2020-05-03 2020-05-03 Transition Melanie Valle[place] 1.2.840.114 [id number] Univers 00:00:00 00:00:00 of Care Emili Recinos 350.1.13.10 ity of [place] 4.2.7.2.[phone] [facility] 403 [address] 2020-03-30 2020-05-02 Hospital Alex Lopez 1.2.840.11 [id number] Univers 16:55:00 16:45:00 Encounter beau Shawnee Loraapple Winter 350.1.13. 10 ity of [facility] 4.2.7.2.[address] [place] [phone] [facility] 091 Branch 2020-04-06 2020-04-06 Anesthesia Aurea Sampsoned Margarita 1.2.8 40.114 [id number] Univers 09:10:00 11:29:00 Cynthia Herring 350.1.1 3.10 ity of Hospital 4.2.7.2.[phone] [facility] 103 [address] 2020-03-29 2020-03-29 Transition Melanie [place]le[place] 1.2.840.114 [id number] Univers 00:00:00 00:00:00 of Care Emili Recinos 350.1.13.10 ity of [place] 4.2.7.2.[phone] [facility] 403 [address] 2020-03-25 2020-03-28 [facility] Bernardo Donnelly [facility] 1.2.840.114 [id number] Univers 19:12:00 18:43:00 [facility] 350.1.13.1 0 [place] [phone] [facility] 113 [address] ([facility]) 2020-03-07 2020-03-07 Transition Melanie [place]le[place] 1.2.840.114 [id number] Univers 00:00:00 00:00:00 of Care Emili Recinos 350.1.13.10 ity of [place] 4.2.7.2.[phone] [facility] 403 [address] 2020-03-02 2020-03-05 [facility] Sabi Begum [facility] 1.2.840.11 [id number] Univers 19:53:34 17:23:00 Encounter SofyEliu jane 350.1.13.10 ity of Sarah [place] 4.2.7.2.686 [place] [phone] [facility] 110 Branch ([facility]) 2020-02-29 2020-02-29 Transition Melanie [place]le[place] 1.2.840.114 [id number] Univers 00:00:00 00:00:00 of Care Emili Trinidady 350.1.13.10 ity of [place] 4.2.7.2.[phone] [facility] 403 [address] 2020-02-26 2020-02-27 Hospital Juventino Mccabe 1.2.840.11 [id number] Univers 04:55:41 19:20:00 Encounter Bia Pedro Maggy 350.1.13.10 ity of Hospital 4.2.7.2.[phone] [facility] 090 Branch 2020-02-27 2020-02-27 Patient Saira Goodman Melanie 1.2.840.114 [id number] Univers 00:00:00 00:00:00 Outreach Heidi Trinidady 350.1.13.10 i ty of [place] 4.2.7.2.[phone] [facility] 403 [address] 2020-02-25 2020-02-26 [facility] 1.2.549.761 [id number] Univers 21:25:58 03:55:00 [facility] 350.1.13.10 it y [place] [phone] [facility] 014 Branch ([facility]) 2020-02-24 2020-02-24 Outpatient Eliazar, HC[facility] LABO [id number] [facility] 07:51:00 07:51:00 Mark 96 [facility] 2020-02-18 2020-02-18 Outpatient Avtar [facility] LABO [id number] [facility] 00:26:00 00:26:00 Oladipo 05 [facility] 2020-02-07 2020-02-07 Transition Melanie Vallejo 1.2.840.114 [id number] Univers 00:00:00 00:00:00 of Care Emili Recinos 350.1.13.10 ity of [place] 4.2.7.2.[phone] [facility] [address] 2020-02-07 2020-02-07 Transition Melanie Vallejo 1.2.840.114 [id number] 00:00:00 00:00:00 of Care Emili Recinos 350.1.13.10 [place] 4.2.7.2.686 [id number] [facility] 2020-01-28 2020-02-05 Inpatient X SIMIN [facility] URI [id number] Univers 18:12:56 15:12:00 RADHESHYAM ity [facility] 2020-01-28 2020-02-05 [facility] Bernardo Donnelly [facility] 1.2.840.114 [id number] Univers 18:12:56 15:12:00 Encounter Ahteetee, [facility] 350.1.13.10 ity of Simin, Radheshyam Clear 4.2.7.2.686 [facility] [phone] [facility] [address] ([facility]) 2020-01-28 2020-02-05 [facility] Bernardo Donnelly [facility] 1.2.840.114 [id number] 18:12:56 15:12:00 Encounter [facility] 350.1.13.10 [place], Radheshyam Clear 4.2.7.2.686 [place] [phone] [place] [address] ([facility]) 2020-01-24 2020-01-26 Emergency BegumSabi simons [facility] 1.2.840.1 14 [id number] Univers 18:46:34 19:35:00 Ahmed, [facility] 350.1.13.10 ity of [place], Radheshyam Clear 4.2.7.2.686 [place] Bhatt [phone] [facility] [address] ([facility]) 2020-01-24 2020-01-26 Outpatient X SIMIN [facility] URI [id number] Univers 18:46:34 19:35:00 RADHESHYAM ity [facility] 2020-01-24 2020-01-26 Emergency BegumSabi simons [facility] 1.2.840.1 14 [id number] 18:46:34 19:35:00 [facility] 350.1.13.10 Sarah Duval 4.2.7.2.686 [place] [phone] [facility] 109 ([facility]) 2020-01-05 2020-01-05 Outpatient JOE Perea [facility] [id number] [facility] 23:52:00 23:52:00 [facility] 2019-12-28 2019-12-28 Orders Doctor BERNARDO 1.2.840.114 [id number] Univers 00:00:00 00:00:00 Only Unassigned, MAGGY 350.1.13.10 ity of [place] [facility] 4.2.7.2.[phone] [facility] [address] 2019-12-28 2019-12-28 Orders Doctor BERNARDO 1.2.840.114 [id number] 00:00:00 00:00:00 Only Unassigned, MAGGY 350.1.13.10 [place] [facility] 4.2.7.2.686 [phone] 009 2019-12-12 2019-12-12 Emergency [place], [place] [id number] [facility] 21:02:30 23:20:00 [facility] 350.1.13.10 [place] [place] [phone] [facility] [address] 2019-12-12 2019-12-12 Emergency [place], [place]UMA 1.2.785.652 [id number] 21:02:30 23:20:00 [facility] 350.1.13.10 4.2.7.2.686 [id number] [id number] 2017-11-02 2017-11-02 Emergency E [facility] MED [id number] 08:33:00 08:33:00 [facility] 2017-08-05 2017-08-05 Outpatient [facility] [id number] [place] 00:00:00 00:00:00 [facility] 2017-07-28 2017-07-28 Outpatient [facility] [id number] [place] 00:00:00 00:00:00 Health 2017-06-24 2017-06-24 Outpatient [facility] [id number] [place] 00:00:00 00:00:00 [facility] 2017-06-22 2017-06-22 Emergency [facility] [id number] [place] 21:37:29 21:37:29 Health 2017-06-22 2017-06-22 Emergency [facility] [id number] [place] 21:06:00 21:06:00 Health 2017-06-22 2017-06-22 Outpatient [facility] [id number] [place] 10:02:31 10:02:31 Health 2017-06-09 2017-06-09 Outpatient [facility] [id number] [place] 00:00:00 00:00:00 [facility] 2017-06-09 2017-06-09 Outpatient [facility] [id number] [place] 00:00:00 00:00:00 [facility] 2017-05-08 2017-05-08 Emergency [facility] [id number] [place] 01:04:44 01:04:44 [facility] 2017-05-05 2017-05-05 Emergency E [facility] MED [id number] 08:11:00 08:11:00 [facility] 2017-04-15 2017-04-15 Emergency E [facility] MED [id number] 09:53:00 09:53:00 [facility] 2017-04-14 2017-04-14 Outpatient [facility] [id number] [place] 13:31:02 13:31:02 Health Results Test Description Test [...] 31.6 g/dL 31.2-35 RDW-SD (test code = 28656-9) 56.7 fL 38.5-51.6 H RDW-CV (test code = 788-0) 17.4 % 12.1-15.4 H PLT (test code = 777-3) See_Comment [Au tomated message] The system which ge nerated this result transmit dain reference range: 150 - 32 8 10*3/?L. The reference range was not used to interpret th is result as normal/abnormal . MPV (test code = 02592-2) 9.5 fL 9.8-13 L NRBC/100 WBC (test code = See_Comment [ Automated message] The 8010688343) system which ge nerated this result transmit dain reference range: 0.0 - 10 .0 /100 WBCs. The reference r meredith was not used to interpr et this result as normal/abnor mal. NRBC x10^3 (test code = See_Comment [Au tomated message] The 5820372990) system which ge nerated this result transmit dain reference range: 10*3/?L. The reference range was not u sed to interpret this result as normal/abnormal . SEG % (test code = 02155-9) 56 % 33-76 LYMPH % (test code = 28 % 14-54 14002-0) MONO % (test code = 50488-4) 12 % 0-4 H EOS % (test code = 87227-4) 4 % 0-3 H ANC (test code = 753-4) 4.72 10*3/uL 1.99-6.95 PLT ESTIMATE (test code = Normal Normal 9317-9) Lab Interpretation (test Abnormal code = 57863-4) [facility]. METABOLIC PANEL (82899)2022-04-10 04:19:15 Test Item Value Reference Range Interpretation Comments NA (test code = 137 mmol/L 135-145 6737705932) K (test code = 4.6 mmol/L 3.5-5 5919248495) CL (test code = 108 mmol/L 98-108 0888486610) CO2 TOTAL (test code = 22 mmol/L 23-31 L 7285874727) AGAP (test code = 2-16 2523741150) BUN (test code = 16 mg/dL 7-23 1938336161) GLUCOSE (test code = 96 mg/dL 70-110 5392276944) CREATININE (test code = 1.35 mg/dL 0.6-1.25 H 9669653407) TOTAL BILI (test code = 0.4 mg/dL 0.1-1.4 0930304193) CALCIUM (test code = 9.1 mg/dL 8.6-10.6 3421919182) T PROTEIN (test code = 5.5 g/dL 6.3-8.2 L 5508763442) ALBUMIN (test code = 3.9 g/dL 3.5-5 7223179420) ALK PHOS (test code = 58 U/L 34-122 6354636016) ALTv (test code = 41 U/L 5-50 1742-6) AST(SGOT) (test code = 42 U/L 13-40 H 0503224665) eGFR (test code = mL/min/1.73m2 1031117370) GILBERTO (test code = GILBERTO) Association of [...] tests). Lab Interpretation Abnormal (test code = 33088-3) [facility] 03[facility]33[facility]31 Test Item Value Reference Range Interpretation Comments LIPASE (test code = 7131738469) 90 U/L 0-220 Lab Interpretation (test code = Normal 65943-3) [facility]22-[facility]-16 12:00:33 Test Item Value Reference Range Interpretation Comments MAGNESIUM (test code = 2614535490) 1.5 mg/dL 1.7-2.4 L Lab Interpretation (test code = Abnormal 37546-3) [facility] MET[facility]OLIC PAN[facility] (NA, K, CL, CO2, GLUCOSE, BUN, CREATININE, CA)2022-04-08 11:12:32 Test Item Value Reference Range Interpretation Comments NA (test code = 136 mmol/L 135-145 5256083369) K (test code = 4.1 mmol/L 3.5-5 3361583420) CL (test code = 108 mmol/L 98-108 9043437900) CO2 TOTAL (test code = 25 mmol/L 23-31 1286314013) AGAP (test code = 2-16 0387334653) BUN (test code = 10 mg/dL 7-23 2785821785) GLUCOSE (test code = 82 mg/dL 70-110 2338807321) CREATININE (test code = 1.10 mg/dL 0.6-1.25 3020444070) CALCIUM (test code = 8.3 mg/dL 8.6-10.6 L 8574606695) eGFR (test code = mL/min/1.73m2 6398709957) GILBERTO (test code = GILBERTO) Association of [...] tests). Lab Interpretation Abnormal (test code = 72749-9) [facility]2022-08-16 11:12:32 Test Item Value Reference Range Interpretation Comments PHOSPHORUS (test code = 1596430757) 2.5 mg/dL 2.5-5 Lab Interpretation (test code = Normal 49073-2) [facility] WITH [id number] 10:47:27 Test Item Value Reference Range Interpretation Comments WBC (test code = See_Comment [Automated 9957-2) message] The sy stem which generated this result transmitted reference range : 4.20 - 10.70 10*3/?L. The reference range was not used to interpret this result as normal/abnormal . RBC (test code = See_Comment L [Automated 787-8) message] The sy stem which generated this [...] (test code = 54.4 fL 38.5-51.6 H 87771-1) RDW-CV (test code = 16.9 % 12.1-15.4 H 788-0) PLT (test code = See_Comment [Automated 777-3) message] The sy stem which generated this result transmitted reference range : 150 - 328 10*3/ ?L. The reference r meredith was not used to interpret this result as normal/abnormal . MPV (test code = 9.7 fL 9.8-13 L 06505-2) NRBC/100 WBC (test See_Comment [Automat ed code = 9278713213) message] The system which generated this result transmitted reference range : 0.0 - 10.0 /100 WBCs. The refer ence range was not u sed to interpret th is result as normal/abnormal . NRBC x10^3 (test code See_Comment [Auto mated = 3325673466) message] The s ystem which generated this result transmitted reference range : 10*3/?L. The reference range was not used to interpret this result as normal/abnormal . GRAN MAT (NEUT) % 54.7 % (test code = 770-8) IMM GRAN % (test code 0.40 % = 2024161963) LYMPH % (test code = 33.8 % 736-9) MONO % (test code = 8.7 % 5905-5) EOS % (test code = 2.0 % 713-8) BASO % (test code = 0.4 % 706-2) GRAN MAT x10^3(ANC) 2.95 10*3/uL 1.99-6.95 (test code = 3328895373) IMM GRAN x10^3 (test 0-0.06 code = 1979353924) LYMPH x10^3 (test code 1.82 10*3/uL 1.09-3.23 = 731-0) MONO x10^3 (test code 0.47 10*3/uL 0.36-1.02 = 742-7) EOS x10^3 (test code = 0.11 10*3/uL 0.06-0.53 711-2) BASO x10^3 (test code 0.01-0.09 = 704-7) Lab Interpretation Abnormal (test code = 04183-6) [facility] METABOLIC PANEL (NA, K, CL, CO2, GLUCOSE, BUN, CREATININE, CA)2022-04-06 09:47:17 Test Item Value Reference Range Interpretation Comments NA (test code = 134 mmol/L 135-145 L 3146963993) K (test code = 4.2 mmol/L 3.5-5 Slight 2102702342) hemolysis CL (test code = 114 mmol/L 98-108 H 3764301964) CO2 TOTAL (test code 16 mmol/L 23-31 L = 3256645949) AGAP (test code = 2-16 0838806989) BUN (test code = 16 mg/dL 7-23 Slight 8862826512) hemolysis GLUCOSE (test code = 79 mg/dL 70-110 2152401916) CREATININE (test code 1.00 mg/dL 0.6-1.25 = 4886062994) CALCIUM (test code = 7.5 mg/dL 8.6-10.6 L 4983322864) eGFR (test code = mL/min/1.73m2 3024249855) GILBERTO (test code = GILBERTO) Association of [...] tests). Lab Interpretation Abnormal (test code = 55856-0) [facility]2022-08-14 09:47:17 Test Item Value Reference Range Interpretation Comments MAGNESIUM (test code = 9745299569) 1.2 mg/dL 1.7-2.4 L Lab Interpretation (test code = Abnormal 32492-2) [facility] HospitalL[facility] Acid Whole [id number] 09:16:49 Test Item Value Reference Range Interpretation Comments LACTIC ACID (test code = 1.35 mmol/L 0.5-2.2 1381717092) Lab Interpretation (test code = Normal 57006-6) [facility] WITH [id number] 09:13:32 Test Item Value Reference Range Interpretation [...] (test code = 52.4 fL 38.5-51.6 H 00121-9) RDW-CV (test code = 16.6 % 12.1-15.4 H 788-0) PLT (test code = See_Comment [Automated 777-3) message] The sy stem which generated this result transmitted reference range : 150 - 328 10*3/ ?L. The reference r meredith was not used to interpret this result as normal/abnormal . MPV (test code = 10.0 fL 9.8-13 97298-5) NRBC/100 WBC (test See_Comment [Automat ed code = 3855057585) message] The system which generated this result transmitted reference range : 0.0 - 10.0 /100 WBCs. The refer ence range was not u sed to interpret th is result as normal/abnormal . NRBC x10^3 (test code See_Comment [Auto mated = 9036197295) message] The s ystem which generated this result transmitted reference range : 10*3/?L. The reference range was not used to interpret this result as normal/abnormal . GRAN MAT (NEUT) % 48.6 % (test code = 770-8) IMM GRAN % (test code 0.20 % = 7896895372) LYMPH % (test code = 39.4 % 736-9) MONO % (test code = 9.3 % 5905-5) EOS % (test code = 1.9 % 713-8) BASO % (test code = 0.6 % 706-2) GRAN MAT x10^3(ANC) 2.36 10*3/uL 1.99-6.95 (test code = 1739233435) IMM GRAN x10^3 (test 0-0.06 code = 6131089853) LYMPH x10^3 (test code 1.91 10*3/uL 1.09-3.23 = 731-0) MONO x10^3 (test code 0.45 10*3/uL 0.36-1.02 = 742-7) EOS x10^3 (test code = 0.09 10*3/uL 0.06-0.53 711-2) BASO x10^3 (test code 0.03 10*3/uL 0.01-0.09 = 704-7) Lab Interpretation Abnormal (test code = 15564-6) [facility]2022-[facility]-12 07:34:48 Test Item Value Reference Range Interpretation Comments MAGNESIUM (test code = 4392801649) 1.8 mg/dL 1.7-2.4 Lab Interpretation (test code = Normal 59383-9) [facility] CARE VENOUS BLOOD [id number] 18:40:18 Test Item Value Reference Range Interpretation Comments PH (test code = 7.32-7.42 L 4666153012) PCO2 PANKAJ (test code = See_Comment [Auto mated message] 3490030034) The system [employer] generated this result transmitted ref erence range: 41 - 51 mmHg. The reference r meredith was not used to interpret this result as normal/abnor mal. PO2 PANKAJ (test code = See_Comment L [Autom ated message] 4102550911) The system [employer] generated this result transmitted ref erence range: 25 - 40 mmHg. The reference r meredith was not used to interpret this result as normal/abnor mal. HCO3 PANKAJ (test code = See_Comment L [Auto mated message] 1151016242) The system [employer] generated this result transmitted ref erence range: 24 - 28 mEq/L. The reference r meredith was not used to interpret this result as normal/abnor mal. AC VBE(BEAKER) (test mEq/L code = 5018947809) Lab Interpretation (test Abnormal code = 14020-5) [facility] (NA, K, CL, CO2, GLUCOSE, BUN, CREATININE, CA)2022-04-03 18:33:26 Test Item Value Reference Range Interpretation Comments NA (test code = 129 mmol/L 135-145 L 8406585365) K (test code = 3.3 mmol/L 3.5-5 L 8766285524) CL (test code = 100 mmol/L 98-108 4853277821) CO2 TOTAL (test code = 19 mmol/L 23-31 L 3016422641) AGAP (test code = 2-16 6714566192) BUN (test code = 49 mg/dL 7-23 H 9760779373) GLUCOSE (test code = 75 mg/dL 70-110 3124482627) CREATININE (test code = 2.55 mg/dL 0.6-1.25 H 8045036067) CALCIUM (test code = 8.6 mg/dL 8.6-10.6 3462345939) eGFR (test code = mL/min/1.73m2 9679638600) GILBERTO (test code = GILBERTO) Association of [...] tests). Lab Interpretation Abnormal (test code = 52531-8) [facility] BranchOSMOLALITY, SERUM OR [id number] 15:45:31 Test Item Value Reference Range Interpretation Comments OSMOLALITY (test code = See_Comment [Au tomated message] 2692-2) The system whic h generated this result transmitted ref erence range: 278 - 30 5 mOsm/kg. The re ference range was not u sed to interpret this result as normal/abnor mal. Lab Interpretation (test Normal code = 05084-3) [facility] with [id number] 11:27:34 Test Item Value Reference Range Interpretation [...] RDW-SD (test code = 48.7 fL 38.5-51.6 72737-2) RDW-CV (test code = 15.9 % 12.1-15.4 H 788-0) PLT (test code = See_Comment [Automated 777-3) message] The sy stem which generated this result transmitted reference range : 150 - 328 10*3/ ?L. The reference r meredith was not used to interpret this result as normal/abnormal . MPV (test code = 9.4 fL 9.8-13 L 28953-8) NRBC/100 WBC (test See_Comment [Automat ed code = 2323741836) message] The system which generated this result transmitted reference range : 0.0 - 10.0 /100 WBCs. The refer ence range was not u sed to interpret th is result as normal/abnormal . NRBC x10^3 (test code See_Comment [Auto mated = 5117898271) message] The s ystem which generated this result transmitted reference range : 10*3/?L. The reference range was not used to interpret this result as normal/abnormal . GRAN MAT (NEUT) % 56.0 % (test code = 770-8) IMM GRAN % (test code 0.50 % = 1390181329) LYMPH % (test code = 33.2 % 736-9) MONO % (test code = 8.6 % 5905-5) EOS % (test code = 1.1 % 713-8) BASO % (test code = 0.6 % 706-2) GRAN MAT x10^3(ANC) 3.64 10*3/uL 1.99-6.95 (test code = 1229756797) IMM GRAN x10^3 (test 0.03 10*3/uL 0-0.06 code = 6843413889) LYMPH x10^3 (test code 2.16 10*3/uL 1.09-3.23 = 731-0) MONO x10^3 (test code 0.56 10*3/uL 0.36-1.02 = 742-7) EOS x10^3 (test code = 0.07 10*3/uL 0.06-0.53 711-2) BASO x10^3 (test code 0.04 10*3/uL 0.01-0.09 = 704-7) Lab Interpretation Abnormal (test code = 62406-4) [facility] Metabolic Panel (NA, K, CL, CO2, GLUCOSE, BUN, CREATININE, CA)2022-04-03 10:08:59 Test Item Value Reference Range Interpretation Comments NA (test code = 125 mmol/L 135-145 L 7088542038) K (test code = 3.7 mmol/L 3.5-5 2146879644) CL (test code = 96 mmol/L 98-108 L 8428310263) CO2 TOTAL (test code = 15 mmol/L 23-31 L 8836812114) AGAP (test code = 2-16 0985664130) BUN (test code = 50 mg/dL 7-23 H 2406283931) GLUCOSE (test code = 86 mg/dL 70-110 6371751869) CREATININE (test code = 3.86 mg/dL 0.6-1.25 H 6781670626) CALCIUM (test code = 8.6 mg/dL 8.6-10.6 2116945245) eGFR (test code = mL/min/1.73m2 0883147202) GILBERTO (test code = GILBERTO) Association of [...] tests). Lab Interpretation Abnormal (test code = 76749-4) [facility] BranchLactic Acid Whole [id number] 04:09:02 Test Item Value Reference Range Interpretation Comments LACTIC ACID (test code = 1.54 mmol/L 0.5-2.2 0479497844) Lab Interpretation (test code = Normal 78311-6) [facility] BranchLactic Acid Whole [id number] 00:25:08 Test Item Value Reference Range Interpretation Comments LACTIC ACID (test code = 2.50 mmol/L 0.5-2.2 H 2916875402) Lab Interpretation (test code = Abnormal 71511-1) [facility] WITH [id number] 20:19:45 Test Item Value Reference Range Interpretation [...] RDW-SD (test code = 49.8 fL 38.5-51.6 08146-9) RDW-CV (test code = 16.4 % 12.1-15.4 H 788-0) PLT (test code = See_Comment H [Automated 777-3) message] The system which generated this result transmit dain reference range : 150 - 328 10*3/ ?L. The reference range was not u sed to interpret th is result as normal/abnormal . MPV (test code = 10.7 fL 9.8-13 70565-5) NRBC/100 WBC (test See_Comment [Automat ed code = 2520646733) message] The system which generated this result transmit dain reference range : 0.0 - 10.0 /100 WBCs. The reference range was not used to interpret this result as normal/abnormal . NRBC x10^3 (test code See_Comment [Auto mated = 1526225931) message] The system which generated this result transmit dain reference range : 10*3/?L. The reference range was not used to interpret this result as normal/abnormal . GRAN MAT (NEUT) % 73.4 % (test code = 770-8) IMM GRAN % (test code 0.60 % = 9315890603) LYMPH % (test code = 17.2 % 736-9) MONO % (test code = 8.2 % 5905-5) EOS % (test code = 0.2 % 713-8) BASO % (test code = 0.4 % 706-2) GRAN MAT x10^3(ANC) 10.17 10*3/uL 1.99-6.95 H (test code = 3032892397) IMM GRAN x10^3 (test 0.09 10*3/uL 0-0.06 H code = 0928928482) LYMPH x10^3 (test code 2.38 10*3/uL 1.09-3.23 = 731-0) MONO x10^3 (test code 1.13 10*3/uL 0.36-1.02 H = 742-7) EOS x10^3 (test code = 0.03 10*3/uL 0.06-0.53 L 711-2) BASO x10^3 (test code 0.05 10*3/uL 0.01-0.09 = 704-7) Lab Interpretation Abnormal (test code = 58147-9) [facility] W/AUTO [id number] 00:06:00 Test Item Value Reference Range Interpretation [...] = MX#) 0.5 k/mm3 0.1-0.8 N TROPONIN-I [id number] 15:07:00 Test Item Value Reference Range Interpretation Comments TROPONIN-I RAPID 0.00 ng/mL 0.00-0.08 N Performed b y certified (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 BASIC METABOLIC [id number] 14:56:00 Test Item Value Reference Range Interpretation [...] MG/DL 70-110 N - XR CHEST 1 [id number] 00:00:00 [facility] 1970 Sex: M FAX: Sabi Kirby MD [phone] [place]: [place] St: REG Name: HOANG JOSEPH FSED : 1970 Age/S: 52/M [address] [facility] Unit #: [id number] Loc: [place] [address] Phys: Sabi Urias MD Acct: [id number] Dis Date: Status: REG ER PHONE #: Exam Date: 03/29/2022 1501 FAX #: Reason: Weakness EXAMS: CPT CODE:[id number] XR CHEST 1 V 27776 PROCEDURE INFORMATION: Exam: XR Chest Exam date [...] 03/29/2022 (1531) PAGE 1 Signed ReportHEPATIC FUNCTION [id number] 06:45:03 Test Item Value Reference Range Interpretation [...] (test code = 13 U/L 6-55 347) Business Center Attendant KEN - ERWIN WBASIC METABOLIC [id number] 06:45:02 Test Item Value Reference Range Interpretation [...] S NOT APPLICABLE FOR DIALYSIS PATIEN TS. Business Center Attendant ID - ERWIN WCBC W/PLT COUNT & AUTO [id number] 06:26:54 Test Item Value Reference Range Interpretation [...] (BEAKER) (test code = 2801) U/S, RENAL, [id number] 19:23:00Reason for exam:->acute kidney [facility] : 1970 Sex: MFINAL [...] ultrasound of the kidneys. Signed: Amberly Prater Verified Date/Time: 03/06/2022 19:23:41 -CoV2/RT-PCR (Asymptomatic ONLY)2022-03-06 19:17:07 Test Item Value Reference Interpretation Comments Range SARS-COV2/RT-PCR Negative Negative The SARS-Co V-2 (test code = target nucleic 83683-8) acids are not detected in thi s [...] revoked sooner. Fact Sheet for Healthcare Providers: https://www.[employer]/Documents/Xp ert%20Xpress%20SAR S%20CoV-2/Fact%20S heets/302-3802%20S ARS-COV-2%20HEALTH CARE%20PROVIDERS%2 0FACT%20SHEET.pdf Fact Sheet for Healthcare Patients: https://www.[employer]/Documents/Xp ert%20Xpress%20SAR S%20CoV-2/Fact%20S heets/302-3801%20S ARS-COV-2%20PATIEN T%20FACT%20SHEET.p df Lab Interpretation Normal (test code = 68079-8) [facility]2022-03-06 19:17:07 Test Item Value Reference Interpretation Comments Range SARS-COV2/RT-PCR Negative Negative The SARS-Co V-2 (test code = target nucleic 84090-1) acids are not detected in thi s [...] revoked sooner. Fact Sheet for Healthcare Providers: https://www.[employer]/Documents/Xp ert%20Xpress%20SAR S%20CoV-2/Fact%20S heets/302-3802%20S ARS-COV-2%20HEALTH CARE%20PROVIDERS%2 0FACT%20SHEET.pdf Fact Sheet for Healthcare Patients: https://www.[employer]/Documents/Xp ert%20Xpress%20SAR S%20CoV-2/Fact%20S heets/302-3801%20S ARS-COV-2%20PATIEN T%20FACT%20SHEET.p df Lab Interpretation Normal (test code = 35469-8) [facility] ONLY)2022-03-06 19:17:07 Test Item Value Reference Interpretation Comments Range SARS-COV2/RT-PCR Negative Negative The SARS-Co V-2 (test code = target nucleic 79922-2) acids are not detected in thi s [...] revoked sooner. Fact Sheet for Healthcare Providers: https://www.[employer]/Documents/Xp ert%20Xpress%20SAR S%20CoV-2/Fact%20S heets/302-3802%20S ARS-COV-2%20HEALTH CARE%20PROVIDERS%2 0FACT%20SHEET.pdf Fact Sheet for Healthcare Patients: https://www.[employer]/Documents/Xp ert%20Xpress%20SAR S%20CoV-2/Fact%20S heets/302-3801%20S ARS-COV-2%20PATIEN T%20FACT%20SHEET.p df Lab Interpretation Normal (test code = 50243-6) [facility] ONLY)2022-03-06 19:17:07 Test Item Value Reference Interpretation Comments Range SARS-COV2/RT-PCR Negative Negative The SARS-Co V-2 (test code = target nucleic 49344-8) acids are not detected in thi s [...] SARS-CoV-2 in a nasopharyngeal swab specimen colle dian from individual s suspected of COVID-19 by [...] revoked sooner. Fact Sheet for Healthcare Providers: https://www.[employer]/Documents/Xp ert%20Xpress%20SAR S%20CoV-2/Fact%20S heets/302-3802%20S ARS-COV-2%20HEALTH CARE%20PROVIDERS%2 0FACT%20SHEET.pdf Fact Sheet for Healthcare Patients: https://www.[employer]/Documents/Xp ert%20Xpress%20SAR S%20CoV-2/Fact%20S heets/302-3801%20S ARS-COV-2%20PATIEN T%20FACT%20SHEET.p df Lab Interpretation Normal (test code = 34252-8) [facility] ONLY)2022-03-06 19:17:07 Test Item Value Reference Interpretation Comments Range SARS-COV2/RT-PCR Negative Negative The SARS-Co V-2 (test code = target nucleic 52386-3) acids are not detected in thi s [...] revoked sooner. Fact Sheet for Healthcare Providers: https://www.[employer]/Documents/Xp ert%20Xpress%20SAR S%20CoV-2/Fact%20S heets/302-3802%20S ARS-COV-2%20HEALTH CARE%20PROVIDERS%2 0FACT%20SHEET.pdf Fact Sheet for Healthcare Patients: https://[employer]/Documents/Xp ert%20Xpress%20SAR S%20CoV-2/Fact%20S heets/302-3801%20S ARS-COV-2%20PATIEN T%20FACT%20SHEET.p df Lab Interpretation Normal (test code = 14634-0) [facility] ONLY)2022-03-06 19:17:07 Test Item Value Reference Interpretation Comments Range SARS-COV2/RT-PCR Negative Negative The SARS-Co V-2 (test code = target nucleic 51859-7) acids are not detected in thi s [...] revoked sooner. Fact Sheet for Healthcare Providers: https://www.[employer]/Documents/Xp ert%20Xpress%20SAR S%20CoV-2/Fact%20S heets/302-3802%20S ARS-COV-2%20HEALTH CARE%20PROVIDERS%2 0FACT%20SHEET.pdf Fact Sheet for Healthcare Patients: https://www.[employer]/Documents/Xp ert%20Xpress%20SAR S%20CoV-2/Fact%20S heets/302-3801%20S ARS-COV-2%20PATIEN T%20FACT%20SHEET.p df Lab Interpretation Normal (test code = 36003-7) [facility])2022-03-06 19:17:07 Test Item Value Reference Range Interpretation Comments SARS-COV2/RT-PCR Negative Negative The SARS-Co V-2 target (test code = nucleic acids a re not [id number]) detected in thi s specimen. Negative result [...] revoked sooner. Fact Sheet for Healthcare Providers: https://www.[employer]/Documents/Xpert%20Xpress%20SARS%20CoV-2/Fact%20Sheets/302-3802%22HTZV-YGF-2%20 HEALTHCARE%20PROVIDERS%20FACT%20SHEET.pdf Fact Sheet for Healthcare Patients: https://www.[employer]/Documents/Xpert%20Xp ress%20SARS%20CoV-2/Fact%20Sheets/302-3801%89VYJA-VIO-7%20PATIENT%20FACT%20SHEET .pdfCREATINE KINASE (CK)2022-03-06 16:19:14 Test Item Value Reference Range Interpretation Comments CREATINE KINASE TOTAL (BEAKER) (test 141 U/L 29-200 code = 380) [employer] Attendant ID - [id number], [id number] 15:13:16 Test Item Value Reference Range Interpretation Comments FREE T4 (BEAKER) (test code = 655) 0.95 ng/dL 0.70-1.48 [employer] Attendant ID - BSTSH/FREE T4 IF [id number] 15:13:16 Test Item Value Reference Range Interpretation Comments THYROID STIMULATING HORMONE 2.060 uIU/mL 0.350-4.940 (BEAKER) (test code = 772) [employer] Center Attendant ID - BSB-TYPE NATRIURETIC FACTOR (BNP)2022-03-06 14:26:30 Test Item Value Reference Range Interpretation Comments B-TYPE NATRIURETIC PEPTIDE (BEAKER) < pg/mL 0-100 (test code = 700) Business Center Attendant ID - JSHIGH SENSITIVITY TROPONIN [id number] 14:14:54 Test Item Value Reference Range Interpretation Comments HIGH SENSITIVITY < pg/ml See_Comment [Automated message] TROPONIN I (test code = The system which 9589993) generated this result transmitted ref erence range: <=35. Th e reference range was not used to interpr et this result as normal/abnormal . Business Center Attendant ID - JSThe CANDY SEPARATOR ENROBING STAT High Sensitivity Troponin-I results should be used in conjunctionwith other diagnostic information such as ECG, clinical observations and information, and patient symptoms to aid in the diagnosis of WA.RAD, CHEST, 1 VIEW, NON [id number] 14:10:00Reason for exam:- >NEUROLOGIC PROBLEMShould this be performed at the bedside?->Yes [facility] CENTERName: DORA JOSEPH : 1970 Sex: MFINAL REPORT Chest, 1 view, 03/06/2022 2:03 PM. History: Neurologic problem. Comparison: 03/28/2019. Discussion: The cardiomediastinal silhouette and pulmonary vasculature are within normal limits for a portable exam. The lungs are clear without evidence of consolidation or effusion. The soft tissues and osseous structures are intact. IMPRESSION: No acute cardiopulmonary abnormality. Signed: [facility] Verified Date/Time: 03/06/2022 14:10:44 REHENSIVE METABOLIC [id number] 14:08:22 Test Item Value Reference Range Interpretation [...] S NOT APPLICABLE FOR DIALYSIS PATIEN TS. Business Center Attendant ID - OIZVYVISJCQ7389-61-69 14:07:49 Test Item Value Reference Range Interpretation Comments MAGNESIUM (BEAKER) (test code = 2.0 mg/dL 1.6-2.6 627) Business Center Attendant ID - UXGJCINAEOZC5705-10-96 14:07:49 Test Item Value Reference Range Interpretation Comments PHOSPHORUS (BEAKER) (test code = 5.6 mg/dL 2.3-4.7 H 604) Business Center Attendant ID - JSLACTIC ACID, NLZWNS3730-60-16 13:51:04 Test Item Value Reference Range Interpretation Comments LACTATE BLOOD VENOUS 1.32 mmol/L 0.50-2.20 Specime n slightly (2) (BEAKER) (test hemolyzed code = 1341) Business Center Attendant ID - JSCBC W/PLT COUNT & AUTO [id number] 13:47:24 Test Item Value Reference Range Interpretation [...] (BEAKER) (test code = 2801) Coronavirus, CoVID-19, [id number] 01:07:20 Test Item Value Reference Range Interpretation Comments COVID-19 (SARS-COV-2) Not Detected Not Detected INTERP RETATION: No (test code = 36859-6) detect able levels of SARS-CoV-2 Coronavirus (COVID-19) [...] SARS-CoV-2 mole cular diagnostic assa y utilizes Machine Records Units Supervisor Mediated Amplification ( TMA) technology to r apidly detect the SARS -CoV-2 (COVID-19) viru s from respiratory adriana ples. In accordance w ith the FDA's kamran nce document "Polic y for Diagnostic Test s for Coronavirus Disease-2019 du [facility] the Public [facility] Emergency", thi s test was developed, and its performance characteristics were verified by the [facility] molecular diagn ostics laboratory and is authorized for clinical diagno stic use. This labor atory is certified un estevan the Clinical Laboratory Improvement Amendments (CLI A) as qualified to pe rform high complexity clinical labora tory testing. Lab Interpretation Normal (test code = 81197-8) [facility], [facility] [id number] 01:07:20 Test Item Value Reference Range Interpretation Comments COVID-19 (SARS-COV-2) Not Detected Not Detected INTERP RETATION: No (test code = 61817-3) detect able levels of SARS-CoV-2 Coronavirus (COVID-19) [...] SARS-CoV-2 mole cular diagnostic assa y utilizes Machine Records Units Supervisor Mediated Amplification ( TMA) technology to r apidly detect the SARS -CoV-2 (COVID-19) viru s from respiratory adriana ples. In accordance w ith the FDA's kamran nce document "Polic y for Diagnostic Test s for Coronavirus Disease-2019 du [facility] the [facility] Emergency", thi s test was developed, and its performance characteristics were verified by the [facility] molecular diagn ostics laboratory and is authorized for clinical diagno stic use. This labor atory is certified un est[place] the Clinical Laboratory Improvement Amendments (CLI A) as qualified to pe rform high complexity clinical labora tory testing. Lab Interpretation Normal (test code = 96656-8) [facility], [facility], [id number] 01:07:20 Test Item Value Reference Range Interpretation Comments COVID-19 (SARS-COV-2) Not Detected Not Detected INTERP RETATION: No (test code = 58857-7) detect able levels of SARS-CoV-2 Coronavirus (COVID-19) [...] SARS-CoV-2 mole cular diagnostic assa y utilizes Machine Records Units Supervisor Mediated Amplification ( TMA) technology to r apidly detect the SARS -CoV-2 (COVID-19) viru s from respiratory adriana ples. In accordance w ith the FDA's kamran nce document "Polic y for Diagnostic Test s for Coronavirus Disease-2019 du [facility] the Public [facility] Emergency", thi s test was developed, and its performance characteristics were verified by the [facility] molecular diagn ostics laboratory and is authorized for clinical diagno stic use. This labor atory is certified un [place] the Clinical Laboratory Improvement Amendments (CLI A) as qualified to pe rform high complexity clinical labora tory testing. Lab Interpretation Normal (test code = 84544-1) [facility], [id number] 01:07:20 Test Item Value Reference Range Interpretation Comments COVID-19 (SARS-COV-2) Not Detected Not Detected INTERP RETATION: No (test code = 92714-3) detect able levels of SARS-CoV-2 Coronavirus (COVID-19) [...] SARS-CoV-2 mole cular diagnostic assa y utilizes Machine Records Units Supervisor Mediated Amplification ( TMA) technology to r apidly detect the SARS -CoV-2 (COVID-19) viru s from respiratory adriana ples. In accordance w ith the FDA's kamran nce document "Polic y for Diagnostic Test s for Coronavirus Disease-2019 du [facility] the Public [facility] Emergency", thi s test was developed, and its performance characteristics were verified by the [facility] molecular diagn ostics laboratory and is authorized for clinical diagno stic use. This labor atory is certified un [place] the Clinical Laboratory Improvement Amendments (CLI A) as qualified to pe rform high complexity clinical labora tory testing. Lab Interpretation Normal (test code = 33966-5) [facility] ORF1ab Resp Ql OLENA+[id number] 01:07:20 Test Item Value Reference Range Interpretation Comments Hospitalized? (test No code = 60534-9) ICU? (test code = No 99077-9) Symptomatic as No defined by CDC? (test code = 77518-3) Employed in No Healthcare? (test code = 37364-1) Resident in a No congregate care setting (including nursing homes, residential care for people with intellectual and developmental disabilities, psychiatric treatment facilities, group homes, board and care homes, homeless mcfp, foster care or other): (test code = 91939-2) SARS-CoV-2 ORF1ab NOT DETECTED Not Detected INTERPRETA TION: No Resp Ql OLENA+probe detectable levels of (test code = SARS-CoV-2 73645-7) Coronavirus (COVID-19) were present in this patient's [...] SARS-CoV-2 mole cular diagnostic assa y utilizes Machine Records Units Supervisor Mediated Amplification ( TMA) technology to r apidly detect the SARS -CoV-2 (COVID-19) viru s from respiratory adriana ples. In accordance with\\XC2A0\\the FDA's guidance docume nt "Policy for Diagnostic Test s for Coronavirus Disease-2019 du [place] the [facility]", amalia s test was developed, and its performance characteristics were verified by the [facility] molecular diagn ostics laboratory and is authorized for clinical diagno stic use. \\XC2A0\\Amalia s laboratory is certified under the Clinical Labora tory Improvement Amendments (CLI A) as qualified to pe rform high complexity clinical labora tory testing. POCT GLUCOSE POC docked [id number] 08:09:01 Test Item Value Reference Range Interpretation Comments Glucose POC (test code = 37226746) 85 mg/dL 74-106 Lab Interpretation (test code = Normal 53803-0) [facility] [id number] 08:09:01 Test Item Value Reference Range Interpretation Comments Glucose POC (test code = 76616277) 85 mg/dL 74-106 Lab Interpretation (test code = Normal 54470-6) [facility] kxcqgo1593-12-47 08:09:01 Test Item Value Reference Range Interpretation Comments Glucose POC (test code = 18095980) 85 mg/dL 74-106 Lab Interpretation (test code = Normal 01376-5) [facility] vsegom1462-08-48 08:09:01 Test Item Value Reference Range Interpretation Comments Glucose POC (test code = 47052861) 85 mg/dL 74-106 Lab Interpretation (test code = Normal 97337-7) [facility] CenterOpromfDQBO-NqN-9 ORF1ab Resp Ql OLENA+sqvzg3329-91-30 23:25:40 Test Item Value Reference Range Interpretation Comments Hospitalized? (test No code = 11766-7) ICU? (test code = No 51029-6) Symptomatic as No defined by CDC? (test code = 49205-4) Employed in No Healthcare? (test code = 15170-4) Resident in a No congregate care setting (including nursing homes, residential care for people with intellectual and developmental disabilities, psychiatric treatment facilities, group homes, board and care homes, homeless mcfp, foster care or other): (test code = 20396-8) SARS-CoV-2 ORF1ab NOT DETECTED Not Detected INTERPRETA TION: No Resp Ql OLENA+probe detectable levels of (test code = SARS-CoV-2 78291-6) Coronavirus (COVID-19) were present in this patient's [...] SARS-CoV-2 mole cular diagnostic assa y utilizes Machine Records Units Supervisor Mediated Amplification ( TMA) technology to r apidly detect the SARS -CoV-2 (COVID-19) viru s from respiratory adriana ples. In accordance with\\XC2A0\\the FDA's guidance docume nt "Policy for Diagnostic Test s for Coronavirus Disease-2019 du [place] the [facility] Emergency", amalia s test was developed, and its performance characteristics were verified by the [facility] molecular diagn ostics laboratory and is authorized for clinical diagno stic use. \\XC2A0\\Thi s laboratory is certified under the Clinical Labora tory Improvement Amendments (CLI A) as qualified to pe rform high complexity clinical labora tory testing. 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: [id number]: 1970 Requested By: SUSHIL Cho Number: [id number] Reading MD: Rene Patterson MeasurementsIntervals Palmer Rate: 61 P: 72PR:152 QRS: 55QRSD: 106 T: 63QT: 398 QTc: 400 Interpretive StatementsSINUS RHYTHMPOSSIBLE RIGHT VENTRICULAR CONDUCTION DELAY [RSR (QR) IN V1/V2]Electronically Signed On 01-22-2022 8:30:45 CDT by [place]ene [place] [address] Lead [id number] 15:46:1012 LEAD EKG FOR [facility] Test Date: 0668-15-47Eak Name: DORA JOSEPH Department: 5ECIPatient ID: [id number] Room: Gender: M Meat Molder: [id number]: 1970 Requested By: SUSHIL Cho Number: [id number] Reading MD: Rene Patterson MeasurementsIntervals Palmer Rate: 61 P: 72PR: 152 QRS: 55QRSD: 106 T: 63QT: 398 QTc: 400 Interpretive StatementsSINUS RHYTHMPOSSIBLE RIGHT VENTRICULAR CONDUCTION DELAY [RSR (QR) IN V1/V2]Electronically Signed On 01-22-2022 8:30:45 CDT by Rene AvitiaAppAssure SoftwareCompachristus st. [facility] Znqkle42 Lead [id number] 15:46:1012 LEAD EKG FOR [facility] Test Date: 8078-53-55Otc Name: DORA JOSEPH Department: 5ECIPatient ID: [id number] Room: Gender: M Meat Molder: [id number]: 1970 Requested By: SUSHIL Cho Number: [id number] Reading MD: Rene Patterson MeasurementsIntervals Palmer Rate: 61 P: 72PR: 152 QRS: 55QRSD: 106 T: 63QT: 398 QTc: 400 Interpretive StatementsSINUS RHYTHMPOSSIBLE RIGHT VENTR ICULAR CONDUCTION DELAY [RSR (QR) IN V1/V2]Electronically Signed On 01-22-2022 8:30:45 CDT by Renerick AvitiaOKCompachristus st[facility] Sybqio30 Lead [id number] 15:46:1012 LEAD EKG FOR [facility] Test Date: 2608-42-81Kjb Name: DORA JOSEPH Department: 5ECIPatient ID: [id number] Room: Gender: M Meat Molder: [id number]: 1970 Requested By: SUSHIL Cho Number: [id number] Reading MD: Rene Patterson MeasurementsIntervals Palmer Rate: 61 P: 72PR: 152 QRS: 55QRSD: 106 T: 63QT: 398 QTc: 400 Interpretive StatementsSINUS RHYTHMPOSSIBLE RIGHT VENTRICULAR CONDUCTION DELAY [RSR (QR) IN V1/V2]Electronically Signed On 01-22-2022 8:30:45 CDT by [facility] HospitalModiv MediaDebbyAppAssure SoftwareCompaPrecisionHawk Holzer Health SystemHIV 1+2 Ab+HIV1 p24 Ag SerPl Ql [id number] 07:02:58 Test Item Value Reference Range Interpretation Comments HIV 1+2 Ab+HIV1 p24 Ag SerPl Ql IA NEGATIVE Negative (test code = 99034-7) [id number] 21:23:2512 LEAD EKG FOR [facility] Test Date: 5817-53-13Rtl Name: DORA PAEZRY Department: 5520Patient ID: [id number] Room: 9V93Fwzxzt: M Meat Molder: : 1970 Requested By: JESSICA AOrder Number: [id number] Reading MD: Chiara Calles MeasurementsIntervals Palmer Rate: 72 P: 90PR:157 QRS: 87QRSD: 105 T: 90QT: 360 QTc: 384 Interpretive StatementsSINUS RHYTHMPOSSIBLE RIGHT VENTRICULAR CONDUCTION DELAY [RSR (QR) IN V1/V2]EARLY REPOLARIZATION [ST ELEVATION WITH NORMALLY INFLECTED T-WAVE]Electronically Signed On 01-17-2022 13:02:30 CDT by REPProbert CarmineJonathon [place] [address]QmllwkRRI2084-46-19 21:23:2512 LEAD EKG FOR [facility] Test Date: 7886-18-89Eas Name: DORA DOLLAR BAY Department: 5520Patient ID: [id number] Room: 0W81Iqsuil: M Meat Molder: : 1970 Requested By: KARIN BASSETT AOrder Number: [id number] Reading MD: Chiara Calles MeasurementsIntervals Palmer Rate: 72 P: 90PR:157 QRS: 87QRSD: 105 T: 90QT: 360 QTc: 384 Interpretive StatementsSINUS RHYTHMPOSSIBLE RIGHT VENTRICULAR CONDUCTION DELAY [RSR (QR) IN V1/V2]EARLY REPOLARIZATION [ST ELEVATION WITH NORMALLY INFLECTED T-WAVE]Electronically Signed On 01-17-2022 13:02:30 CDT by Skype PlbhydCBG6376-12-44 21:23:2512 LEAD EKG FOR [facility] Test Date: 3785-29-88Yhp Name: DORA DOLLAR BAY Department: 5520Patient ID: [id number] Room: 4G42Tcvljq: M Meat Molder: : 1970 Requested By: KARIN BASSETT AOrder Number: [id number] Reading MD: Chiara Calles MeasurementsIntervals Palmer Rate: 72 P: 90PR:157 QRS: 87QRSD: 105 T: 90QT: 360 QTc: 384 Interpretive StatementsSINUS RHYTHMPOSSIBLE RIGHT VENTRIC ULAR CONDUCTION DELAY [RSR (QR) IN V1/V2]EARLY REPOLARIZATION [ST ELEVATION WITH NORMALLY INFLECTED T-WAVE]Electronically Signed On 01-17-2022 13:02:30 CDT by FriendferEKG2022-05-26 21:23:2512 LEAD EKG FOR [facility] Test Date: 3648-58-35Mck Name: DORA JOSEPH Department: 5520Patient ID: [id number] Room: 2G19Ddhzcj: M Meat Molder: : 1970 Requested By: KARIN BASSETT AOrder Number: [id number] Reading MD: Chiara Calles MeasurementsIntervals Palmer Rate: 72 P: 90PR: 157 QRS: 87QRSD: 105 T: 90QT: 360 QTc: 384 Interpretive StatementsSINUS RHYTHMPOSSIBLE RIGHT VENTRICULAR CONDUCTION DELAY [RSR (QR) IN V1/V2]EARLY REPOLARIZATION [ST ELEVATION WITH NORMALLY INFLECTED T-WAVE]Electronically Signed On 01-17-2022 13:02:30 CDT by FriendferSARS-CoV-2 ORF1ab Resp Ql OLENA+sqlzf5888-01-44 19:57:49 Test Item Value Reference Range Interpretation Comments Hospitalized? (test No code = 13647-2) ICU? (test code = No 65709-6) Symptomatic as No defined by CDC? (test code = 18827-3) Employed in No Healthcare? (test code = 17385-7) Resident in a No congregate care setting (including nursing homes, residential care for people with intellectual and developmental disabilities, psychiatric treatment facilities, group homes, board and care homes, homeless mcfp, foster care or other): (test code = 23117-2) SARS-CoV-2 ORF1ab NOT DETECTED Not Detected INTERPRETA TION: No Resp Ql OLENA+probe detectable levels of (test code = SARS-CoV-2 26530-8) Coronavirus (COVID-19) were present in this patient's [...] SARS-CoV-2 mole cular diagnostic assa y utilizes Machine Records Units Supervisor Mediated Amplification ( TMA) technology to r apidly detect the SARS -CoV-2 (COVID-19) viru s from respiratory adriana ples. In accordance with\\XC2A0\\the FDA's guidance docume nt "Policy for Diagnostic Test s for Coronavirus Disease-2018 du [facility] the [facility] Emergency", amalia s test was developed, and its performance characteristics were verified by the [facility] molecular diagn ostics laboratory and is authorized for clinical diagno stic use. \\XC2A0\\Thi s laboratory is certified under the Clinical Labora tory Improvement Amendments (CLI A) as qualified to pe rform high complexity clinical labora tory testing. POCT CREATININE POC docked [id number] 13:57:55 Test Item Value Reference Range Interpretation Comments Creatinine POC (test 2.4 mg/dL 0.6-1.3 H Physici an Notified code = 35828074) eGFR If non- Am 30 See_Comment L [Aut omated message] (test code = 56080149) The s ystem which generated this result transmit dain reference range : >=90 mL/min/1.7 3 m2. The reference r meredith was not used to interpret this result as normal/abnormal . eGFR If Am (test 35 See_Comment L [A utomated message] code = 32908250) The system which generated this result transmit dain reference range : >=90 mL/min/1.7 3 m2. The reference r meredith was not used to interpret this result as normal/abnormal . Lab Interpretation (test Abnormal code = 79989-2) [facility] CREATININE POC docked vjxvsm6061-05-73 13:57:55 Test Item Value Reference Range Interpretation Comments Creatinine POC (test 2.4 mg/dL 0.6-1.3 H Physici an Notified code = 91571770) eGFR If non- Am 30 See_Comment L [Aut omated message] (test code = 88705081) The s ystem which generated this result transmit dain reference range : >=90 mL/min/1.7 3 m2. The reference r meredith was not used to interpret this result as normal/abnormal . eGFR If Am (test 35 See_Comment L [A utomated message] code = 10264207) The system which generated this result transmit dain reference range : >=90 mL/min/1.7 3 m2. The reference r meredith was not used to interpret this result as normal/abnormal . Lab Interpretation (test Abnormal code = 87586-4) [facility] CREATININE POC docked [id number] 13:57:55 Test Item Value Reference Range Interpretation Comments Creatinine POC (test 2.4 mg/dL 0.6-1.3 H Physici an Notified code = 61207568) eGFR If non- Am 30 See_Comment L [Aut omated message] (test code = 51279885) The s ystem which generated this result transmit dain reference range : >=90 mL/min/1.7 3 m2. The reference r meredith was not used to interpret this result as normal/abnormal . eGFR If Am (test 35 See_Comment L [A utomated message] code = 36389770) The system which generated this result transmit dain reference range : >=90 mL/min/1.7 3 m2. The reference r meredith was not used to interpret this result as normal/abnormal . Lab Interpretation (test Abnormal code = 99085-8) [facility] CREATININE POC docked [id number] 13:57:55 Test Item Value Reference Range Interpretation Comments Creatinine POC (test 2.4 mg/dL 0.6-1.3 H Physici an Notified code = 17138392) eGFR If non- Am 30 See_Comment L [Aut omated message] (test code = 99635415) The s ystem which generated this result transmit dain reference range : >=90 mL/min/1.7 3 m2. The reference r meredith was not used to interpret this result as normal/abnormal . eGFR If Am (test 35 See_Comment L [A utomated message] code = 62666902) The system which generated this result transmit dain reference range : >=90 mL/min/1.7 3 m2. The reference r meredith was not used to interpret this result as normal/abnormal . Lab Interpretation (test Abnormal code = 24279-2) [facility] POC docked [id number] 13:48:46 Test Item Value Reference Range Interpretation Comments Sodium POC (test code = 126 mmol/L 136-145 L 93514475) Potassium POC (test code 4.4 mmol/L 3.5-5.1 = 72758547) Chloride POC (test code 100 mmol/L 98-107 = 27571294) TCO2 POC (test code = 17 mmol/L 21-32 L Physic rachel Notified 82293630) Urea Nitrogen POC (test 36 mg/dL 7-18 H code = 50927724) Glucose POC (test code = 114 mg/dL 74-106 H 29282738) Hemoglobin POC (test 11.9 g/dL 12-16 L code = 07317591) Hematocrit POC (test 35.0 % 37.0-47.0 L code = 78668381) Lab Interpretation (test Abnormal code = 37872-2) [facility] POC docked [id number] 13:48:46 Test Item Value Reference Range Interpretation Comments Sodium POC (test code = 126 mmol/L 136-145 L 83295679) Potassium POC (test code 4.4 mmol/L 3.5-5.1 = 06740788) Chloride POC (test code 100 mmol/L 98-107 = 97826204) TCO2 POC (test code = 17 mmol/L 21-32 L Physic rachel Notified 21148232) Urea Nitrogen POC (test 36 mg/dL 7-18 H code = 38695678) Glucose POC (test code = 114 mg/dL 74-106 H 51947059) Hemoglobin POC (test 11.9 g/dL 12-16 L code = 19527337) Hematocrit POC (test 35.0 % 37.0-47.0 L code = 96652408) Lab Interpretation (test Abnormal code = 66378-0) [facility] whkbcd3218-31-22 13:48:46 Test Item Value Reference Range Interpretation Comments Sodium POC (test code = 126 mmol/L 136-145 L 18046224) Potassium POC (test code 4.4 mmol/L 3.5-5.1 = 96223766) Chloride POC (test code 100 mmol/L 98-107 = 39367083) TCO2 POC (test code = 17 mmol/L 21-32 L Physic rachel Notified 29963081) Urea Nitrogen POC (test 36 mg/dL 7-18 H code = 10904892) Glucose POC (test code = 114 mg/dL 74-106 H 96391125) Hemoglobin POC (test 11.9 g/dL 12-16 L code = 38961450) Hematocrit POC (test 35.0 % 37.0-47.0 L code = 02761290) Lab Interpretation (test Abnormal code = 52374-1) [facility] POC docked umymkv8642-07-85 13:48:46 Test Item Value Reference Range Interpretation Comments Sodium POC (test code = 126 mmol/L 136-145 L 60555181) Potassium POC (test code 4.4 mmol/L 3.5-5.1 = 39216554) Chloride POC (test code 100 mmol/L 98-107 = 06688832) TCO2 POC (test code = 17 mmol/L 21-32 L Physic rachel Notified 49818208) Urea Nitrogen POC (test 36 mg/dL 7-18 H code = 96135568) Glucose POC (test code = 114 mg/dL 74-106 H 09229688) Hemoglobin POC (test 11.9 g/dL 12-16 L code = 47711296) Hematocrit POC (test 35.0 % 37.0-47.0 L code = 58154516) Lab Interpretation (test Abnormal code = 89846-5) [facility]-CoV-2 ORF1ab Resp Ql OLENA+svsra6435-18-23 20:25:16 Test Item Value Reference Range Interpretation Comments Hospitalized? (test No code = 82208-2) ICU? (test code = No 03166-0) Symptomatic as No defined by CDC? (test code = 53841-9) Employed in No Healthcare? (test code = 89274-5) Resident in a No congregate care setting (including nursing homes, residential care for people with intellectual and developmental disabilities, psychiatric treatment facilities, group homes, board and care homes, homeless mcfp, foster care or other): (test code = 04398-1) SARS-CoV-2 ORF1ab NOT DETECTED Not Detected INTERPRETA TION: No Resp Ql OLENA+probe detectable levels of (test code = SARS-CoV-2 38075-2) Coronavirus (COVID-19) were present in this patient's [...] SARS-CoV-2 mole cular diagnostic assa y utilizes Machine Records Units Supervisor Mediated Amplification ( TMA) technology to r apidly detect the SARS -CoV-2 (COVID-19) viru s from respiratory adriana ples. In accordance with\\XC2A0\\the FDA's guidance docume nt "Policy for Diagnostic Test s for Coronavirus Disease-2019 du [facility] the Public [facility]al th Emergency", amalia s test was developed, and its performance characteristics were verified by the [facility] [facility] [place] [facility] and is authorized for clinical diagno stic use. \\XC2A0\\Thi s laboratory is certified under the Clinical Labora tory Improvement Amendments (CLI A) as qualified to pe rform high complexity clinical labora tory testing. POCT VBG POC docked [id number] 11:16:15 Test Item Value Reference Range Interpretation Comments pH, Pankaj POC (test code 7.32 7.33-7.43 L = 60212467) pCO2,Pankaj POC (test code 31.0 See_Comment L [Au tomated = 95105346) message] The sy stem which generated this result transmitted reference range : 38 - 50 mmHg. The reference range was not used to interpret this result as normal/abnormal . PO2, Venous POC (BKR) 44 See_Comment L [Auto mated (test code = 18998192) Rhomaniaa ge] The system which generated this result transmitted reference range : 50 - 75 mm Hg. The reference range was not used to interpret this result as normal/abnormal . Ionized Calcium POC 1.24 mmol/L 1.15-1.29 (test code = 03354110) HCO3, Pankaj POC (test 16 mmol/L 22-26 L code = 98486375) TCO2 POC (test code = 17 mmol/L 21-32 L 46232985) Base Deficit, Pankaj POC -9 (test code = 61095185) Sample Type (test code IVEN Physi erik Notified = 71585059) % Sat, Pankaj POC (test 77 % code = 76423217) Lab Interpretation Abnormal (test code = 53064-5) [facility] VBG POC docked [id number] 11:16:15 Test Item Value Reference Range Interpretation Comments pH, Pankaj POC (test code 7.32 7.33-7.43 L = 55370783) pCO2,Pankaj POC (test code 31.0 See_Comment L [Au tomated = 45039988) message] The sy stem which generated this result transmitted reference range : 38 - 50 mmHg. The reference range was not used to interpret this result as normal/abnormal . PO2, Venous POC (BKR) 44 See_Comment L [Auto mated (test code = 56407902) Rhomaniaa ge] The system which generated this result transmitted reference range : 50 - 75 mm Hg. The reference range was not used to interpret this result as normal/abnormal . Ionized Calcium POC 1.24 mmol/L 1.15-1.29 (test code = 04867127) HCO3, Pankaj POC (test 16 mmol/L 22-26 L code = 18307374) TCO2 POC (test code = 17 mmol/L 21-32 L 18449459) Base Deficit, Pankaj POC -9 (test code = 83487090) Sample Type (test code IVEN Physi erik Notified = 03084796) % Sat, Pankaj POC (test 77 % code = 80438192) Lab Interpretation Abnormal (test code = 15960-5) [facility] VBG POC docked [id number] 11:16:15 Test Item Value Reference Range Interpretation Comments pH, Pnakaj POC (test code 7.32 7.33-7.43 L = 47816001) pCO2,Pankaj POC (test code 31.0 See_Comment L [Au tomated = 49783671) message] The sy stem which generated this result transmitted reference range : 38 - 50 mmHg. The reference range was not used to interpret this result as normal/abnormal . PO2, Venous POC (BKR) 44 See_Comment L [Auto mated (test code = 83007781) messa ge] The system which generated this result transmitted reference range : 50 - 75 mm Hg. The reference range was not used to interpret this result as normal/abnormal . Ionized Calcium POC 1.24 mmol/L 1.15-1.29 (test code = 42718112) HCO3, Pankaj POC (test 16 mmol/L 22-26 L code = 18636154) TCO2 POC (test code = 17 mmol/L 21-32 L 52448889) Base Deficit, Pankaj POC -9 (test code = 85794200) Sample Type (test code IVEN Physi erik Notified = 37098238) % Sat, Pankaj POC (test 77 % code = 24153810) Lab Interpretation Abnormal (test code = 19839-2) [facility] VBG POC docked [id number] 11:16:15 Test Item Value Reference Range Interpretation Comments pH, Pankaj POC (test code 7.32 7.33-7.43 L = 87495449) pCO2,Pankaj POC (test code 31.0 See_Comment L [Au tomated = 75545958) message] The sy stem which generated this result transmitted reference range : 38 - 50 mmHg. The reference range was not used to interpret this result as normal/abnormal . PO2, Venous POC (BKR) 44 See_Comment L [Auto mated (test code = 14581432) messa ge] The system which generated this result transmitted reference range : 50 - 75 mm Hg. The reference range was not used to interpret this result as normal/abnormal . 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: [id number]: 1970 Requested By: TANJA Garza Number: [id number] Reading MD: Chiara Calles MeasurementsIntervals Palmer Rate: 75 P: 84PR: 153 QRS: 67QRSD: 104 T: 77QT: 344 QTc: 373 Interpretive StatementsSINUS RHYTHMPOSSIBLE RIGHT VENTRICULAR CONDUCTION DELAY [RSR (QR) IN V1/V2]Electronically Signed On 01-09-2022 8:27:19 CDT by [place]ara [place] [address] LEAD [id number] 20:59:5612 LEAD EKG FOR [facility] Test Date: 2831-00-73Axz Name: DORA DOLLAR BAY Department: 5520Patient ID: [id number] Room: Gender: M Meat 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: [id number]: 1970 Requested By: TANJA Garza Number: [id number] Reading MD: Chiara Calles MeasurementsIntervals Palmer Rate: 75 P: 84PR: 153 QRS: 67QRSD: 104 T: 77QT: 344 QTc: 373 Interpretive StatementsSINUS RHYTHMPOSSIBLE RIGHT VENT RICULAR CONDUCTION DELAY [RSR (QR) IN V1/V2]Electronically Signed On 01-09-2022 8:27:19 CDT by REPProbertCarmineWilliam [place] [address] LEAD [id number] 20:59:5612 LEAD EKG FOR [facility] Test Date: 7438-79-96Oys Name: DORA DOLLAR BAY Department: 5520Patient ID: [id number] Room: Gender: M 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: [id number]: 1970 Requested By: TANJA Garza Number: [id number] Reading MD: Chiara Calles MeasurementsIntervals Palmer Rate: 75 P: 84PR: 153 QRS: 67QRSD: 104 T: 77QT: 344 QTc: 373 Interpretive StatementsSINUS RHYTHMPOSSIBLE RIGHT VENTRICULAR CONDUCTION DELAY [RSR (QR) IN V1/V2]Electronically Signed On 01-09-2022 8:27:19 CDT by [facility]bakariKim [facility] [address] LEAD [id number] 20:59:5612 LEAD EKG FOR [facility] Test Date: 0811-07-38Xke Name: DORA JOSEPH Department: 5520Patient ID: [id number] Room: Gender: Meat 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 [id number] 23:52:00 Test Item Value Reference Range Interpretation [...] = MX#) 0.8 k/mm3 0.1-0.8 N LIVER [id number] 20:04:00 Test Item Value Reference Range Interpretation Comments TOTAL PROTEIN (test code 6.7 GM/DL 5.0-8.0 N Per formed by = PROT) 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 [facility] ALBUMIN (test code = [...] 67 UNITS/L 25-125 N TAWNY) BASIC METABOLIC [id number] 19:54:00 Test Item Value Reference Range Interpretation [...] POCGLU) 81 MG/DL - CT ABD PELVIS W/QDNA3178-29-08 00:00:00 [facility]EName: HOANG JOSEPH : 1970 Sex: M Name: HOANG JOSEPH FSED : 1970 Age/S: 51 / M [address] [facility] Unit #: [id number] Loc: [place] [address] Phys: Raffaele Levi MD Acct: [id number] Dis Date: Status: PRE ER PHONE #: Exam Date: 09/23/20211999 FAX #: Reason: RUQ PAIN, VOMITING EXAMS: CPT CODE: [id number] CT ABD PELVIS W/CONT 11208 PROCEDURE INFORMATION: Exam: CT Abdomen And Pelvis [...] or iterative reconstruction. Contrast material: ISOVUE 300; Contrastvolume: 100 ml; Contrast route: INTRAVENOUS (IV); COMPARISON: CT ABD PELVIS W/CONT 06/27/2021 4:14 PMFINDINGS: Lungs: Mild right basilar atelectasis or scarring. [...] abdomen or pelvis. Vasculature: Abdominal aorta is normalcaliber. Lymph nodes: Subcentimeter short axis lymph nodes present. Urinary bladder: Bladder is parti ally distended with fluid. Reproductive: Unremarkable as visualized. Bones/joints: No suspicious osseous abnormality identified. IMPRESSION: 1. Nonspecific mild to moderate wall thickening of few left PAGE 1 Signed Report (CONTINUED) Name: HOANG JOSEPH FSED : 1970 Age/S: 51 / M [address] [facility] Unit #: [id number] Loc: [place] [address] Phys: Raffaele Levi MD Acct: [id number] Dis Date:Status: PRE ER PHONE #: Exam Date: 09/23/20211999 FAX #: Reason: RUQ PAIN, VOMITING EXAMS: CPT CODE: [id number] CT ABD PELVIS W/CONT 25642 <Continued> abdominal small bowel loops may relate to i ncomplete luminal distention or enteritis. 2. 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 No obstruction. at 2048 Reported and signed by: Juan Juarez M.D. CC: Raffaele Levi MD Technologist:Stephanie Albrecht RT(R)(CT) CTDI: DLP: Trnscb Date/Time: 09/23/2021 (2048) [email or web address] Orig Print D/T: S: 09/23/2021 (2049) PAGE 2 Signed ReportCOMP. METABOLIC PANEL (12956)2021-09-14 03:57:44 Test Item Value Reference Range Interpretation Comments NA (test code = 132 mmol/L 135-145 L 8301476333) K (test code = 4.1 mmol/L 3.5-5.0 7351166447) CL (test code = 101 mmol/L 98-108 9487905203) CO2 TOTAL (test code = 23 mmol/L 23-31 5823591484) AGAP (test code = 2-16 2030592817) BUN (test code = 23 mg/dL 7-23 1263638539) GLUCOSE (test code = 97 mg/dL 70-110 8395753782) CREATININE (test code = 1.48 mg/dL 0.60-1.25 H 1735257149) TOTAL BILI (test code = 0.3 mg/dL 0.1-1.6 8171757432) CALCIUM (test code = 9.0 mg/dL 8.6-10.6 0761574414) T PROTEIN (test code = 6.2 g/dL 6.3-8.2 L 8043523725) ALBUMIN (test code = 3.7 g/dL 3.5-5.0 7450544215) ALK PHOS (test code = 82 U/L 34-122 3435155862) ALTv (test code = 21 U/L 5-50 1742-6) AST(SGOT) (test code = 20 U/L 13-40 9888476095) eGFR (test code = mL/min/1.73m2 2095275491) GILBERTO (test code = GILBERTO) Association of [...] tests). Lab Interpretation Abnormal (test code = 57769-4) [facility] WITH [id number] 03:52:42 Test Item Value Reference Range Interpretation [...] RDW-SD (test code = 47.2 fL 38.5-51.6 57814-2) RDW-CV (test code = 14.0 % 12.1-15.4 788-0) PLT (test code = See_Comment H [Automated 777-3) message] The sy stem which generated this result transmitted reference range : 150 - 328 10*3/ ?L. The reference r meredith was not used to interpret this result as normal/abnormal . MPV (test code = 9.2 fL 9.8-13.0 L 98838-3) NRBC/100 WBC (test See_Comment [Automat ed code = 5997484794) message] The system which generated this result transmitted reference range : 0.0 - 10.0 /100 WBCs. The refer ence range was not u sed to interpret th is result as normal/abnormal . NRBC x10^3 (test code <0.01 See_Comment [Auto mated = 0652763164) message] The s ystem which generated this result transmitted reference range : 10*3/?L. The reference range was not used to interpret this result as normal/abnormal . GRAN MAT (NEUT) % 61.3 % (test code = 770-8) IMM GRAN % (test code 0.20 % = 5720844835) LYMPH % (test code = 23.1 % 736-9) MONO % (test code = 13.7 % 5905-5) EOS % (test code = 1.5 % 713-8) BASO % (test code = 0.2 % 706-2) GRAN MAT x10^3(ANC) 2.78 10*3/uL 1.99-6.95 (test code = 5095192013) IMM GRAN x10^3 (test <0.03 0.00-0.06 code = 3436508434) LYMPH x10^3 (test code 1.05 10*3/uL 1.09-3.23 L = 731-0) MONO x10^3 (test code 0.62 10*3/uL 0.36-1.02 = 742-7) EOS x10^3 (test code = 0.07 10*3/uL 0.06-0.53 711-2) BASO x10^3 (test code <0.03 0.01-0.09 = 704-7) Lab Interpretation Abnormal (test code = 91813-2) [facility] [id number] 13:36:34 Test Item Value Reference Interpretation Comments Range TROPONIN I (test 0.001 ng/mL See_Comment [Automated code = 5347322542) message] The system which generated this result [...] biotin. Lab Interpretation Normal (test code = 95829-2) [facility] [id number] 13:36:34 Test Item Value Reference Range Interpretation Comments NT-proBNP (test code 79 pg/mL See_Comment [Autom ated = 4336808534) message] The system which generated this result transmitted reference range : <=125. The reference range was not used to interpret this result as normal/abnormal . GILBERTO (test code = GILBERTO) Biotin has been reported to cause a negative bias, interpret results relative to patient's use of biotin. Lab Interpretation Normal (test code = 19743-3) [facility]OL[facility] PAN[facility] (NA, K, CL, CO2, GLUCOSE, BUN, CREATININE, CA)2021-09-12 13:24:32 Test Item Value Reference Range Interpretation Comments NA (test code = 134 mmol/L 135-145 L 1042688093) K (test code = 4.3 mmol/L 3.5-5.0 9070070020) CL (test code = 102 mmol/L 98-108 4689418529) CO2 TOTAL (test code = 23 mmol/L 23-31 4010521115) AGAP (test code = 2-16 8242005580) BUN (test code = 22 mg/dL 7-23 0352324971) GLUCOSE (test code = 89 mg/dL 70-110 2051881310) CREATININE (test code = 1.69 mg/dL 0.60-1.25 H 2670074957) CALCIUM (test code = 9.0 mg/dL 8.6-10.6 7975203775) eGFR (test code = mL/min/1.73m2 1646075202) GILBERTO (test code = GILBERTO) Association of [...] tests). Lab Interpretation Abnormal (test code = 29311-1) [facility] WITH [id number] 13:09:28 Test Item Value Reference Range Interpretation Comments WBC (test code = See_Comment [Automated 3209-2) message] The sy stem which generated this result transmitted reference range : 4.20 - 10.70 10*3/?L. The reference range was not used to interpret this result as normal/abnormal . RBC (test code = See_Comment L [Automated 133-8) message] The sy stem which generated this [...] RDW-SD (test code = 45.3 fL 38.5-51.6 25297-0) RDW-CV (test code = 13.9 % 12.1-15.4 788-0) PLT (test code = See_Comment H [Automated 777-3) message] The sy stem which generated this result transmitted reference range : 150 - 328 10*3/ ?L. The reference r meredith was not used to interpret this result as normal/abnormal . MPV (test code = 9.0 fL 9.8-13.0 L 82762-3) NRBC/100 WBC (test See_Comment [Automat ed code = 8336288876) message] The system which generated this result transmitted reference range : 0.0 - 10.0 /100 WBCs. The refer ence range was not u sed to interpret th is result as normal/abnormal . NRBC x10^3 (test code <0.01 See_Comment [Auto mated = 9982136964) message] The s ystem which generated this result transmitted reference range : 10*3/?L. The reference range was not used to interpret this result as normal/abnormal . GRAN MAT (NEUT) % 69.7 % (test code = 770-8) IMM GRAN % (test code 0.40 % = 7049172728) LYMPH % (test code = 16.9 % 736-9) MONO % (test code = 11.9 % 5905-5) EOS % (test code = 0.7 % 713-8) BASO % (test code = 0.4 % 706-2) GRAN MAT x10^3(ANC) 3.88 10*3/uL 1.99-6.95 (test code = 1480517830) IMM GRAN x10^3 (test <0.03 0.00-0.06 code = 9750483220) LYMPH x10^3 (test code 0.94 10*3/uL 1.09-3.23 L = 731-0) MONO x10^3 (test code 0.66 10*3/uL 0.36-1.02 = 742-7) EOS x10^3 (test code = 0.04 10*3/uL 0.06-0.53 L 711-2) BASO x10^3 (test code <0.03 0.01-0.09 = 704-7) Lab Interpretation Abnormal (test code = 10805-0) [facility] WITH [id number] 05:55:28 Test Item Value Reference Range Interpretation [...] RDW-SD (test code = 45.4 fL 38.5-51.6 35767-4) RDW-CV (test code = 13.8 % 12.1-15.4 788-0) PLT (test code = See_Comment [Automated 777-3) message] The sy stem which generated this result transmitted reference range : 150 - 328 10*3/ ?L. The reference r meredith was not used to interpret this result as normal/abnormal . MPV (test code = 9.2 fL 9.8-13.0 L 98444-6) NRBC/100 WBC (test See_Comment [Automat ed code = 2623263338) message] The system which generated this result transmitted reference range : 0.0 - 10.0 /100 WBCs. The refer ence range was not u sed to interpret th is result as normal/abnormal . NRBC x10^3 (test code <0.01 See_Comment [Auto mated = 0855549335) message] The s ystem which generated this result transmitted reference range : 10*3/?L. The reference range was not used to interpret this result as normal/abnormal . GRAN MAT (NEUT) % 60.6 % (test code = 770-8) IMM GRAN % (test code 0.20 % = 4119297927) LYMPH % (test code = 25.5 % 736-9) MONO % (test code = 10.5 % 5905-5) EOS % (test code = 2.8 % 713-8) BASO % (test code = 0.4 % 706-2) GRAN MAT x10^3(ANC) 3.23 10*3/uL 1.99-6.95 (test code = 2546263512) IMM GRAN x10^3 (test <0.03 0.00-0.06 code = 1232925684) LYMPH x10^3 (test code 1.36 10*3/uL 1.09-3.23 = 731-0) MONO x10^3 (test code 0.56 10*3/uL 0.36-1.02 = 742-7) EOS x10^3 (test code = 0.15 10*3/uL 0.06-0.53 711-2) BASO x10^3 (test code <0.03 0.01-0.09 = 704-7) Lab Interpretation Abnormal (test code = 55276-8) [facility] 05:48:47 Test Item Value Reference Range Interpretation Comments LIPASE (test code = 6917157454) 116 U/L 0-220 Lab Interpretation (test code = Normal 52875-2) [facility] HospitalCOMP. METABOLIC PANEL (94077)2021-09-09 05:48:46 Test Item Value Reference Range Interpretation Comments NA (test code = 137 mmol/L 135-145 9842304023) K (test code = 4.0 mmol/L 3.5-5.0 1386208885) CL (test code = 108 mmol/L 98-108 2058193049) CO2 TOTAL (test code = 22 mmol/L 23-31 L 8330317956) AGAP (test code = 2-16 2736675482) BUN (test code = 23 mg/dL 7-23 1690643780) GLUCOSE (test code = 89 mg/dL 70-110 2518835469) CREATININE (test code = 1.28 mg/dL 0.60-1.25 H 4801080055) TOTAL BILI (test code = 0.4 mg/dL 0.1-1.8 8635382284) CALCIUM (test code = 8.9 mg/dL 8.6-10.6 0502253441) T PROTEIN (test code = 6.0 g/dL 6.3-8.2 L 2505571231) ALBUMIN (test code = 3.5 g/dL 3.5-5.0 8278605661) ALK PHOS (test code = 67 U/L 34-122 2404168120) ALTv (test code = 18 U/L 5-50 1742-6) AST(SGOT) (test code = 22 U/L 13-40 6987713146) eGFR (test code = mL/min/1.73m2 1697600007) GILBERTO (test code = GILBERTO) Association of [...] tests). Lab Interpretation Abnormal (test code = 60677-0) [facility]. METABOLIC PANEL (86440)2021-09-08 02:29:45 Test Item Value Reference Range Interpretation Comments NA (test code = 138 mmol/L 135-145 1174097563) K (test code = 4.3 mmol/L 3.5-5.0 6232753900) CL (test code = 106 mmol/L 98-108 7123752264) CO2 TOTAL (test code = 27 mmol/L 23-31 3554141093) AGAP (test code = 2-16 3306197794) BUN (test code = 22 mg/dL 7-23 2553818597) GLUCOSE (test code = 90 mg/dL 70-110 9742452608) CREATININE (test code = 1.36 mg/dL 0.60-1.25 H 5431082918) TOTAL BILI (test code = 0.4 mg/dL 0.1-1.2 8411522153) CALCIUM (test code = 9.2 mg/dL 8.6-10.6 6716985790) T PROTEIN (test code = 6.5 g/dL 6.3-8.2 7350813740) ALBUMIN (test code = 3.8 g/dL 3.5-5.0 8245459649) ALK PHOS (test code = 73 U/L 34-122 2376649505) ALTv (test code = 19 U/L 5-50 1742-6) AST(SGOT) (test code = 24 U/L 13-40 9354712155) eGFR (test code = mL/min/1.73m2 9031832575) GILBERTO (test code = GILBERTO) Association of [...] tests). Lab Interpretation Abnormal (test code = 22614-8) [facility] 02:29:45 Test Item Value Reference Range Interpretation Comments LIPASE (test code = 0427690669) 75 U/L 0-220 Lab Interpretation (test code = Normal 77267-0) [facility] Hospital[facility] WITH [id number] 02:15:21 Test Item Value Reference Range Interpretation Comments WBC (test code = See_Comment [Automated 6412-2) message] The sy stem which generated this result transmitted reference range : 4.20 - 10.70 10*3/?L. The reference range was not used to interpret this result as normal/abnormal . RBC (test code = See_Comment L [Automated 979-1) message] The sy stem which generated this [...] RDW-SD (test code = 45.9 fL 38.5-51.6 85619-8) RDW-CV (test code = 13.6 % 12.1-15.4 788-0) PLT (test code = See_Comment [Automated 777-3) message] The sy stem which generated this result transmitted reference range : 150 - 328 10*3/ ?L. The reference r meredith was not used to interpret this result as normal/abnormal . MPV (test code = 9.4 fL 9.8-13.0 L 42820-7) NRBC/100 WBC (test See_Comment [Automat ed code = 4301909389) message] The system which generated this result transmitted reference range : 0.0 - 10.0 /100 WBCs. The refer ence range was not u sed to interpret th is result as normal/abnormal . NRBC x10^3 (test code <0.01 See_Comment [Auto mated = 4645210230) message] The s ystem which generated this result transmitted reference range : 10*3/?L. The reference range was not used to interpret this result as normal/abnormal . GRAN MAT (NEUT) % 66.0 % (test code = 770-8) IMM GRAN % (test code 0.50 % = 6868872757) LYMPH % (test code = 20.0 % 736-9) MONO % (test code = 9.8 % 5905-5) EOS % (test code = 3.5 % 713-8) BASO % (test code = 0.2 % 706-2) GRAN MAT x10^3(ANC) 3.77 10*3/uL 1.99-6.95 (test code = 0872446595) IMM GRAN x10^3 (test 0.03 10*3/uL 0.00-0.06 code = 4204456980) LYMPH x10^3 (test code 1.14 10*3/uL 1.09-3.23 = 731-0) MONO x10^3 (test code 0.56 10*3/uL 0.36-1.02 = 742-7) EOS x10^3 (test code = 0.20 10*3/uL 0.06-0.53 711-2) BASO x10^3 (test code <0.03 0.01-0.09 = 704-7) Lab Interpretation Abnormal (test code = 90742-5) [facility] HospitalL[facility] Whole Ijmio4804-21-19 02:10:44 Test Item Value Reference Range Interpretation Comments LACTIC ACID (test code = 1.35 mmol/L 0.50-2.20 4782684900) Lab Interpretation (test code = Normal 88812-3) [facility] [id number] 15:31:19 Test Item Value Reference Range Interpretation Comments Case Report (test code Surgical Pathology ? ? = 8356925556) ?Case: [id number] ? Authorizing Provider: ?Bia Pedro MD ?Collected: ? 09/03/2021 0801 ?Ordering Location: ? ? [facility] OR ? Received: ?09/03/202142 ? Department ? Pathologist: ? Shaneka Douglas MD ? Specimen: ? ?ILEUM, Ileostomy ( staple ?end proximal ) ? Final Diagnosis (test m7zmhPHbKFEvd4jlLOKwiK code = 7164203585) FuZzEwMzNcZnRuYmpcdWMx IHtccnRmMVxlcGljOTYwMV ohgeApLNRwgGOzG4Nixmgv WBxiXL9qDK1bdZqfoUCteP TtWZItFiNew9xly471pBFh z6qtBRGRdiywuBn1aNvyK3 3zz7B3CqeyQ15fiJIlBTC3 DEEiORUouWIvFUJhHPK2AG WluBUuI1khWZNjKG4dkrbc BLywLFhxFBUyhYK0ORAvrV VnO7VkEQAeBMjeNCRftic4 EtQiDd0hsRNhhSxvPLizWS JkXHBsYWluXGZzMjBccGFy IEEuIElMRVVNLCBJTEVPU1 EJSFi2OSHcpbIvVYEaYV3d QkVOSUdOIElMRUFMIFRJU1 YKQECHYTBNAFGIM1JTAO1W N00KGDcqSCJTP6kTUxIwFW 0GSMFYXnsAL1YDYPTKPPJF RUxTLCBccGFyICAgICAgIC GPF46WTVQZPI2ZXOaZZDtm KHtOB4FYV79QDLQockpmGR JcZnMyMiBTcmkgQmhhcmF0 oTgtP9Y2yGLqWDCNBtDJSO KecdieHWI1g9cekCCdMPRx jFEtKuSmKQGbYNTov7wvBC VmbGFuZzEwMzNcZnRuYmpc lYJsSZLwShQre5kwk045qM Ssb9uwKQUeXlV8rKNeBNPm xCaqkpl5fJivHdIdIXMlp1 lzcyBcZmNoYXJzZXQwIEFy qYUwQ964ZTUxSMlec6uwr9 NbSFJhtSXcn1E0CYDLELsz HvOqS923p2isu4pfomQqpW K1SFHrGJF4GRdsybDgbmI7 WFhmcAHyOeT7QIxwgwVqRI rzocXollXbSvx3XLEyQ782 BAD6vWvmc8txEXY7LIUhNN AdLsblSr6sbLOjE035CLBu XNYDLRAxqPl4XXNchtIeag NqnXZMw606Z829v8boCHEx sdNlnQjPvvkef0pjD288UK BhcGVydzEyMjQwXHBhcGVy oYB6QQMfIH4kkrioAYppME gpRETlzvY5YYCgdLHkI2Sw WBOiRJ4ktiaxXFM2CYefCY LjJUT0EcWkPWPpd5Slqpi5 VxFxpt3wrw80AGI3d4AukC qgWAH1AZW7VwUqVn3mmUTv IMBiZL0qWnFqmITuPKKmoe 10aXwwYRmiiwErfD8uNoNc EUOwdAMkWPWxUG8rcOMnRQ VrgA5kkgbwLMBvOgJwbjkx UMAmwSvsbrLfOy0ayAxhWD E5GZmhS7ubxG9kFbM4RVjf E2laaR1pCPd4QLdmwZL3SY AuwW4uRK5oeipff3hdQKwz HKxdVBMkxiI1hzS2XYSfgW YgS5YiaC6yQVVbXK9yqplr b9nyPOW0DWwpNBLxVBL1Pj BoHWJya0Esquf6YuMnp0Xt sAXdEZkvF59co480DOCsvs VwQ1hjfGMfevuhvLQdyyxo TJnnvjB2TFJiCNZjLLlsYR YxXGZzMjBcbGFuZzEwMzNc aGljaFxmMVxkYmNoXGYxXG dkO4opLcIuB8TbHXNaOgXo tCDxIVzmkDI2MTUcITKkx3 7kdIw5RKOkedksf4UsLHTm fQMhaHTttA3mizKeh2heMX QrMGTfZVAiS5ZiLEW1cAUy UPBxpXYbuYM4XT7hcrBhBH 1hZGUgYnkgcmVzaWRlbnRz QESmHVdsm4tqSV8bLPUzcH cysB2enWS3DHHoo9evjGDf uCKrq1iiy2VbfjSnBUdzVK ExYEhhSKIdCOIcHL7dANAb tSThzzDwa5U9IsdwyYWmtz jhEmvpirI9DYrfkvacWIIz LPaeP8gdHhEoRTHuuLkaWt pvt0OlGHCpQWBqDhwmkVKm fX0= Clinical Information 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] [id number]) Gross Description (test y9qkeDQsOXNhuCQGTVWaIs code = [id number]) bvgnRuQIOtvZQhR9Auihlu UTexOO1sMI3akGltsCOdhS AdUS3KVGRwYlEmNBXspVLf yoTgAbTkWIDdcTJyjZV5PD PxRV5qhvbmSLmzQLumYKKt kgP2YXVbtIDeP6YaYJKjTS 9taegvZWN9MZxzeZ8gkkYR RuoiNv4seBAnfMneXlHkBz NoYXJzZXQwXGZuaWwgQXJp GWr4aK1PDvruIJI8FQOHSh rbGHJsBY4Dg2cyECOfsYIt CLR6JSoelBBiFJQcBARkWC l9HXIbKDdpyVCdOM3ykJfm PnpotScsh9DhxKQcPVjaUW JwMUNlJQmpTNSnLO5JExGg CMpDKBChEZSsIfN7YNf4PO FHXaLuQlYhMNq6Bah8NuMp KXd9COe1RWwDJhLcDRG9Kt AsZoV0WIR1JYKgDNnucBPm IFxcZiBBcmlhbCBcXGZzID IdJAgcHrwmUTmuA76kyTum nJ1sGbJkRRUXQhHXCUXWPF 9ibWNtFX1PTKKmUYdnTQHd nFTRGQB8WT0xMWVSRvlnxA MhHZHqzTtdBPhiiR3sOD9S NQp9ihLtJLOeSkRtF1JxI0 loQR5pTURmxgFoYPZbzAXh ZCBmcmVzaCBhbmQgbGFiZW rrCUG2lMXiTSBxOYMrJJAq WO53W5ExqwPnEQunRTkirr XkBiWwSTUbeRK9aVfrtVus z8F7o008QUAxiDSeaHSwJV 7wFVIlz0fsdUKzUpTaquLq P12le3zyrDZeh4EkLTL9EY 7ngWxfftDwMMmiUE84QI9l SLSpDPagLFTnn3MxJTd5Qm ReQ26knC7bwKNeJ3RgBHG3 IDQuMiBjbSBpbiBkaWFtZX Jqisudp1m2jHEmASZ7v60e NExhTszyvXKqQfYqR81iSX jaeaThHKpzzQikFQT5iPaq WNVjwBNjDnA4LR7tGtPjh8 3ra5gumqKvbyMdMJVwsPFd uJGbGNOaj6HqaBokcfHoYF SugI0zIIKtZWCnkLYecX9y biBpcyBvcGVuIHRvIHJldm JrcWJ3YJ9lvGhqfvZszf2o l3f8WGYvzrHgEHGkARIwJH XmtDWtn9AtDWNTZXUmKVOd rxBaePb4VFUcPAN9zP9mfs PxmtRtt9JdpAu6cZNoCLyf TBAnARTeqr70U3itFSGrKD BhciANClxwYXIgDQpBMTog lXSlfTuxPUkyiPBrD9tcZS GtYUHmCCJgecTkiPw7FFBe bMCjEI9FWQS8BQN3h18wYE PiKGRcOJNkakOgpLs8THwv ERMaBJjGZpvnJv25ETxnc5 TvhTnamhTjjrZgAB13IKQq xuUypDVlMH9NEAYizaLOZu Z5qHeqFIv4KVT2HZmjMRX1 fW6gx3nbb3AaIyQAb7Ari2 QrirCnu7V9YZSnwBqtfM5v QF2wwdvhUQMbRAR2d7ZsNS EJJAuukDdpcD8lDIXqB98p g0MRn4ZcETUsJSnge5geyZ ium6MhuRIaUQafMDWzsKSk TLyupL5pTdRzk8sdpId3FJ vyvpK7JYGnlt2GPuvupP7t TmLnr2ghvPt4BQJAHqwflb K0z6jtzHixp7WsqCLzVW0V Cn0= Disclaimer (test code = [id number] [id number]) FuZzEwMzNcZnRuYmpcdWMx KNitpvVjDZzfj6EaH9FpPu AwMFxhbnNpXGRlZmxhbmcx JWOmCJM8tzZnXYZoOEjsAW LiKNziYj1eqUHpiHueBfJj LBIlx7btunEWITytHlHaR3 06PQDzMIcnr7ajg3NsDGJw oLFhb0J9HDNDdkvloMa5mW wrS60sx9V4VvzcN3moFNIw IKNhG4IvCI3lWCVsHov1BU P8RJV3TFSpDTQoY1LzTR4a JLMitASvNMt8l0jjjGsoRR MbFZI9c7nlELwjmsSgNS5u xw1roEd7z4ocbeFqFPRwOR LmrTPVGQBzQ0EauLqiKd8g iLw9bMbtToriEAO7Pfn8KO 0pid37aoz8gDovVNMagiow VoQ8SHlzGNHllnqnOUr7KI ymQUKirXU5UQWucUEdW8Gq FIUqIS5grca1SWK2RYhmXV UzXtR3WBPxpOMfZXYsxRlu KHmqy939XYN9OeHkEI6eC6 Yyi8H6pE6zyFUqIEVixJZb QoKmPCZtcq1ubIZaYUcif5 BgTUQ9rrC3jQGmfQOpVRYj TH14Sjfwj1VwEfqka8WkI0 0srPQ4KIasa3hsKX4bGdD6 ciWqVKoum0elnT9lUjF5LE tkFE1vMI7wPZScsP7vhzfv XHBnYnJkcmhlYWRccGdicm KhNi9grHlaZVG4ZNtmR4tg jJ5bWpV6TJbmI6rhxQ0cVS s0VIppmDF3JDBszB8tVW6a edawa5azNUnyXTllZZNpkp Z4yzJ6TVPanFUgT4AukW3x ZJWxNY4tuqnbc1wpFVH9PD unZIGgDND9PtCeJSHnk3Jo nzj3DhHty6WgzHKgXKafR5 3ox330CBRiueJbR4rhnHEc waqkeRKnklqqHCxphxQ2FP TpnlEvt7TeWDOrVMG3TCph ZKjoeWLzIEYjfWmwe4hzM2 RscGFyXHBsYWluXGYxXGZz MjBcbGFuZzEwMzNcaGljaF utKKbuBaDtAVYfVBspO2ak KvSzU6TsBAGeRdRsrBFfT1 ggVGhpcyByZXBvcnQgbWF5 YKamG4k6MTXnjvLroVc1jk UwXuVkTBAaSWS2IEljgLXo OGUlz1SraslyeVOuOo3hbR YxQVIrwJ7vCPRjSVLeBXra OF1uaGt0UQTGiZOcrRWxUj EDRJGpXJ17yoGhOITDhqcd n4E8OAjyTDOzn3SneLMcO0 vsz2JvTGZst69uBE0jr4Z4 d3ydGEG5FR6hj5CdMRNscU FvwROdAULfw6Qypoqel3Zt IHRjeiWbw4NtVKPtugIdhO GzBIBuueYjqq5ynxPjCIDm OVQpG7QejqeobOxqcmYnGY Xhbd8krkKqGUT4ZACGWOMx PKCrc0BfvJ1vmDVHOES5lM Yeah2fapSVfRZzTSVyli82 ATKgER7fI5hlEYPvMLZmwb SamTAdi2GvQXWygPE4mLXt NG5KWkWHm43jQACmWSAIkk QmVIAotMpvuNK0ebK1vS8a IChGREEpLlx+IFRoZSBGRE WyOT3wnyZxn7XneiJvqTji IZXqnXHha1NcxQIey8YtvI ypi5YezUXuvJEgOB5eLDKb clxwYXIgVVRNQiBMYWJvcm C3y8UtYNXhGLSpWDV6aDjn hxw4YYCivN6vFGTxS2wuld zgQXtwQXLdx1FbfM5ztAZQ jWBuj9OzzQSukBDSeSWxFP 4yixInPIrIGUpYJFD6luVw QKEeu2ZiUZkeJ1jvO64ckV emgYt0bZG8ZAE8gL4tUek+ IFxwYXJccGFyIEFwcHJvcH MgYSHtgXvyoyXlK8MnouOv cH7mxBJvefHdLL0wPO0vS0 L6dEEnIPPtwnTyq6seZFed dmUgYmVlbiByZXZpZXdlZC Elc2AwJXxzGOH7OLlrssXw bmNsdWRpbmcgSCZFLCBTcG YwoFBoYRQ4FCatjdZeajQr AZ4mgK7nmUnkdG4qcIOpgP I7dcvdOJTlSTQibVcqBVLx PF1uxXNqCHFwgmORhWjzkD LrhL0zU0BeLYCuMTBvua6b OPSozN4jCVlkx8MpqfpoAM PzPIJeLEFwqtIdzo8wDIGn qBEHKF7EHZembEEvn2Sueq RcV7wKKNC2LGLoScFgWlnt RYKjhDTzcQKrAKYbau31IC SrvR1umZaiTADqrP3vqE7v aAikcX0wXrWuUhIlAQbaIU 3uBAZzB1sijXUyUTWoGINu Z2uvQaAwcF6hfEiqMEpgBa LuTrUgPJurBWD5wY== Embedded Images (test code = 1419280945) 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 Blood No organisms No growth Previous Culture-Anaerobic isolated preliminar y (test code = 71745-3) verifi ed result was Culture In Progress on 08/31/2021 at 060 1 CSTPrevious preliminary verified result was No growth a t 24 hours on 09/01/2021 at 030 1 CSTPrevious preliminary verified result was No growth a t 48 hours on 09/02/2021 at 03 01 CSTPrevious preliminary verified result was No growth a t 72 hours on 09/03/2021 at 03 01 MEDIA PRODUCTION OPERATOR Lab Interpretation Normal (test code = 25730-0) [facility] METABOLIC PANEL (NA, K, CL, CO2, GLUCOSE, BUN, CREATININE, CA)2021-09-04 13:22:54 Test Item Value Reference Range Interpretation Comments NA (test code = 132 mmol/L 135-145 L 8149468308) K (test code = 4.3 mmol/L 3.5-5.0 2873156739) CL (test code = 104 mmol/L 98-108 9621375563) CO2 TOTAL (test code = 23 mmol/L 23-31 4137354207) AGAP (test code = 2-16 1527889527) BUN (test code = 15 mg/dL 7-23 9649969093) GLUCOSE (test code = 96 mg/dL 70-110 6231502708) CREATININE (test code = 1.42 mg/dL 0.60-1.25 H 7963652337) CALCIUM (test code = 8.7 mg/dL 8.6-10.6 7904118447) eGFR (test code = mL/min/1.73m2 5292310568) GILBERTO (test code = GILBERTO) Association of [...] tests). Lab Interpretation Abnormal (test code = 84217-7) [facility] METABOLIC PANEL (NA, K, CL, CO2, GLUCOSE, BUN, CREATININE, CA)2021-09-04 13:22:54 Test Item Value Reference Range Interpretation Comments NA (test code = 132 mmol/L 135-145 L 4721923191) K (test code = 4.3 mmol/L 3.5-5.0 4503483742) CL (test code = 104 mmol/L 98-108 1196736109) CO2 TOTAL (test code = 23 mmol/L 23-31 0678839878) AGAP (test code = 2-16 2832646373) BUN (test code = 15 mg/dL 7-23 4942036021) GLUCOSE (test code = 96 mg/dL 70-110 8735220785) CREATININE (test code = 1.42 mg/dL 0.60-1.25 H 4640500902) CALCIUM (test code = 8.7 mg/dL 8.6-10.6 7212029471) eGFR (test code = mL/min/1.73m2 1617889802) GILBERTO (test code = GILBERTO) Association of [...] tests). Lab Interpretation Abnormal (test code = 85782-1) [facility] CULTURE [id number] 17:16:36 Test Item Value Reference Range Interpretation Comments Blood Culture Coagulase negative Addition al Workup (test Staphylococcus work-up perfo rmed code = 600-7) only per reque st. Culture plate(s ) will be saved until this date : 09/08/21 Gram stain Isolated from aerobic (test code = bottle Gram positive 664-3) cocci in clusters [facility] CULTURE [id number] 17:16:36 Test Item Value Reference Range Interpretation Comments Blood Culture Coagulase negative Addition al Workup (test Staphylococcus work-up perfo rmed code = 600-7) only per reque st. Culture plate(s ) will be saved until this date : 09/08/21 Gram stain Isolated from aerobic (test code = bottle Gram positive 664-3) cocci in [facility] Culture - Peripheral Vein # 17:16:26 Test Item Value Reference Range Interpretation Comments Blood Culture-Aerobic Culture positive. No growth AA P revious (test code = 50299-0) See Blood Culture p reliminary Workup for verified result additional was Culture In information. 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 Blood No organisms No growth Previous Culture-Anaerobic isolated preliminar y (test code = 92256-1) verifi ed result was Culture In Progress on 09/01/2021 at 012 7 MEDIA PRODUCTION OPERATOR Lab Interpretation Abnormal (test code = 89449-9) [facility] Culture - Peripheral Vein # 17:16:26 Test Item Value Reference Range Interpretation Comments Blood Culture-Aerobic Culture positive. No growth AA P revious (test code = 83011-1) See Blood Culture p reliminary Workup for verified result additional was Culture In information. 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 Blood No organisms No growth Previous Culture-Anaerobic isolated preliminar y (test code = 66737-6) verifi ed result was Culture In Progress on 09/01/2021 at 012 7 MEDIA PRODUCTION OPERATOR Lab Interpretation Abnormal (test code = 22229-5) [facility] METABOLIC PANEL (NA, K, CL, CO2, GLUCOSE, BUN, CREATININE, CA)2021-09-03 12:16:04 Test Item Value Reference Range Interpretation Comments NA (test code = 130 mmol/L 135-145 L 6693574217) K (test code = 4.1 mmol/L 3.5-5.0 0246932810) CL (test code = 103 mmol/L 98-108 8941621799) CO2 TOTAL (test code = 21 mmol/L 23-31 L 9718541681) AGAP (test code = 2-16 4837280392) BUN (test code = 14 mg/dL 7-23 7246998889) GLUCOSE (test code = 90 mg/dL 70-110 9995052181) CREATININE (test code = 1.28 mg/dL 0.60-1.25 H 2641375021) CALCIUM (test code = 8.8 mg/dL 8.6-10.6 3607028704) eGFR (test code = mL/min/1.73m2 6925537531) GILBERTO (test code = GILBERTO) Association of [...] tests). Lab Interpretation Abnormal (test code = 81197-6) [facility] METABOLIC PANEL (NA, K, CL, CO2, GLUCOSE, BUN, CREATININE, CA)2021-09-03 12:16:04 Test Item Value Reference Range Interpretation Comments NA (test code = 130 mmol/L 135-145 L 8913675058) K (test code = 4.1 mmol/L 3.5-5.0 5241825901) CL (test code = 103 mmol/L 98-108 3072213318) CO2 TOTAL (test code = 21 mmol/L 23-31 L 1291583077) AGAP (test code = 2-16 0265984109) BUN (test code = 14 mg/dL 7-23 7228149352) GLUCOSE (test code = 90 mg/dL 70-110 3918774056) CREATININE (test code = 1.28 mg/dL 0.60-1.25 H 2064062202) CALCIUM (test code = 8.8 mg/dL 8.6-10.6 3333498467) eGFR (test code = mL/min/1.73m2 4752009249) GILBERTO (test code = GILBERTO) Association of [...] tests). Lab Interpretation Abnormal (test code = 80576-0) [facility] WITHOUT [id number] 11:53:39 Test Item Value Reference Range Interpretation Comments WBC (test code = 6690-2) See_Comment [A utomated message] The system [employer] generated this result transmit dain reference range : 4.20 - 10.70 10*3/?L. The reference range was not used to interpret this result as normal/abnormal . RBC (test code = 789-8) See_Comment L [Au tomated message] The system [employer] generated this result transmit dain reference range [...] 777-3) See_Comment [Au tomated message] The system [employer] generated this result transmit dain reference range : 150 - 328 10*3/?L. The reference range was not used to interpret this result as normal/abnormal . MPV (test code = 10.1 fL 9.8-13.0 83979-0) RDW-CV (test code = 13.5 % 12.1-15.4 788-0) RDW-SD (test code = 44.6 fL 38.5-51.6 86827-5) NRBC x10^3 (test code = <0.01 See_Comment [Au tomated message] 5711602642) The system [employer] generated this result transmit dain reference range : 10*3/?L. The reference range was not used to interpret this result as normal/abnormal . NRBC/100 WBC (test code See_Comment [Au tomated message] = 6884305165) The system [employer] generated this result transmit dain reference range : 0.0 - 10.0 /100 WBC s. The reference r meredith was not used to interpret this result as normal/abnormal . IPF % (test code = 1573064326) Lab Interpretation (test Abnormal code = 39720-9) [facility] WITHOUT [id number] 11:53:39 Test Item Value Reference Range Interpretation Comments WBC (test code = 6690-2) See_Comment [A utomated message] The system [employer] generated this result transmit dain reference range : 4.20 - 10.70 10*3/?L. The reference range was not used to interpret this result as normal/abnormal . RBC (test code = 789-8) See_Comment L [Au tomated message] The system [employer] generated this result transmit dain reference range [...] 777-3) See_Comment [Au tomated message] The system [employer] generated this result transmit dain reference range : 150 - 328 10*3/?L. The reference range was not used to interpret this result as normal/abnormal . MPV (test code = 10.1 fL 9.8-13.0 37187-4) RDW-CV (test code = 13.5 % 12.1-15.4 788-0) RDW-SD (test code = 44.6 fL 38.5-51.6 01816-2) NRBC x10^3 (test code = <0.01 See_Comment [Au tomated message] 3946157684) The system [employer] generated this result transmit dain reference range : 10*3/?L. The reference range was not used to interpret this result as normal/abnormal . NRBC/100 WBC (test code See_Comment [Au tomated message] = 9877287582) The system [employer] generated this result transmit dain reference range : 0.0 - 10.0 /100 WBC s. The reference r meredith was not used to interpret this result as normal/abnormal . IPF % (test code = 9807838385) Lab Interpretation (test Abnormal code = 92411-3) [facility] (NA, K, CL, CO2, GLUCOSE, BUN, CREATININE, CA)2021-09-02 12:06:01 Test Item Value Reference Range Interpretation Comments NA (test code = 132 mmol/L 135-145 L 7978863096) K (test code = 4.4 mmol/L 3.5-5.0 5421998395) CL (test code = 106 mmol/L 98-108 2884273363) CO2 TOTAL (test code = 22 mmol/L 23-31 L 0052915888) AGAP (test code = 2-16 2078332101) BUN (test code = 16 mg/dL 7-23 4561865713) GLUCOSE (test code = 83 mg/dL 70-110 5415588519) CREATININE (test code = 1.33 mg/dL 0.60-1.25 H 0914146176) CALCIUM (test code = 8.8 mg/dL 8.6-10.6 7484708827) eGFR (test code = mL/min/1.73m2 6429568301) GILBERTO (test code = GILBERTO) Association of [...] tests). Lab Interpretation Abnormal (test code = 33637-1) [facility] (NA, K, CL, CO2, GLUCOSE, BUN, CREATININE, CA)2021-09-02 12:06:01 Test Item Value Reference Range Interpretation Comments NA (test code = 132 mmol/L 135-145 L 6706728494) K (test code = 4.4 mmol/L 3.5-5.0 1917600118) CL (test code = 106 mmol/L 98-108 8227936539) CO2 TOTAL (test code = 22 mmol/L 23-31 L 0506915159) AGAP (test code = 2-16 5575251913) BUN (test code = 16 mg/dL 7-23 5963711733) GLUCOSE (test code = 83 mg/dL 70-110 1542753133) CREATININE (test code = 1.33 mg/dL 0.60-1.25 H 9990435583) CALCIUM (test code = 8.8 mg/dL 8.6-10.6 6198055833) eGFR (test code = mL/min/1.73m2 8396389278) GILBERTO (test code = GILBERTO) Association of [...] tests). Lab Interpretation Abnormal (test code = 68312-1) [facility] METABOLIC PANEL (NA, K, CL, CO2, GLUCOSE, BUN, CREATININE, CA)2021-09-01 21:55:22 Test Item Value Reference Range Interpretation Comments NA (test code = 130 mmol/L 135-145 L 0481906816) K (test code = 4.2 mmol/L 3.5-5.0 5730632734) CL (test code = 103 mmol/L 98-108 9047317862) CO2 TOTAL (test code = 20 mmol/L 23-31 L 4661793172) AGAP (test code = 2-16 5008975694) BUN (test code = 20 mg/dL 7-23 4796550752) GLUCOSE (test code = 106 mg/dL 70-110 5191853792) CREATININE (test code = 1.51 mg/dL 0.60-1.25 H 0212499492) CALCIUM (test code = 8.5 mg/dL 8.6-10.6 L 6644735412) eGFR (test code = mL/min/1.73m2 2997737136) GILBERTO (test code = GILBERTO) Association of [...] tests). Lab Interpretation Abnormal (test code = 95843-6) [facility] METABOLIC PANEL (NA, K, CL, CO2, GLUCOSE, BUN, CREATININE, CA)2021-09-01 21:55:22 Test Item Value Reference Range Interpretation Comments NA (test code = 130 mmol/L 135-145 L 7219681365) K (test code = 4.2 mmol/L 3.5-5.0 0875684497) CL (test code = 103 mmol/L 98-108 2508730973) CO2 TOTAL (test code = 20 mmol/L 23-31 L 7924817784) AGAP (test code = 2-16 5589821624) BUN (test code = 20 mg/dL 7-23 9008190983) GLUCOSE (test code = 106 mg/dL 70-110 7665197869) CREATININE (test code = 1.51 mg/dL 0.60-1.25 H 4078221173) CALCIUM (test code = 8.5 mg/dL 8.6-10.6 L 5491238059) eGFR (test code = mL/min/1.73m2 4131428754) GILBERTO (test code = GILBERTO) Association of [...] tests). Lab Interpretation Abnormal (test code = 18810-6) [facility] [id number] 10:31:32 Test Item Value Reference Range Interpretation Comments Coagulase Negative Positive Negative, See A Staphylococcus (test Comment/Narrative code = 81261-1) GILBERTO (test code = GILBERTO) Coagulase negative [...] contact the Antimicrobial Stewardship Program with questions.Pager: ?[phone] Testing included eleven identification and three resistance marker targets. Lab Interpretation Abnormal (test code = 00415-4) [facility] DNA [id number] 10:31:32 Test Item Value Reference Range Interpretation Comments Coagulase Negative Positive Negative, See A Staphylococcus (test Comment/Narrative code = 14167-7) GILBERTO (test code = GILBERTO) Coagulase negative [...] contact the Antimicrobial Stewardship Program with questions.Pager: ?[phone] Testing included eleven identification and three resistance marker targets. Lab Interpretation Abnormal (test code = 62102-4) [facility] METABOLIC PANEL (NA, K, CL, CO2, GLUCOSE, BUN, CREATININE, CA)2021-09-01 08:38:47 Test Item Value Reference Range Interpretation Comments NA (test code = 130 mmol/L 135-145 L 8800405494) K (test code = 4.0 mmol/L 3.5-5.0 6911951204) CL (test code = 105 mmol/L 98-108 8457831728) CO2 TOTAL (test code = 20 mmol/L 23-31 L 6413869297) AGAP (test code = 2-16 6899380460) BUN (test code = 21 mg/dL 7-23 7183435279) GLUCOSE (test code = 88 mg/dL 70-110 6890583727) CREATININE (test code = 1.31 mg/dL 0.60-1.25 H 2493223630) CALCIUM (test code = 8.5 mg/dL 8.6-10.6 L 1670049056) eGFR (test code = mL/min/1.73m2 7680519982) GILBERTO (test code = GILBERTO) Association of [...] tests). Lab Interpretation Abnormal (test code = 19743-1) [facility] METABOLIC PANEL (NA, K, CL, CO2, GLUCOSE, BUN, CREATININE, CA)2021-09-01 08:38:47 Test Item Value Reference Range Interpretation Comments NA (test code = 130 mmol/L 135-145 L 4008680319) K (test code = 4.0 mmol/L 3.5-5.0 0829475893) CL (test code = 105 mmol/L 98-108 6546431360) CO2 TOTAL (test code = 20 mmol/L 23-31 L 9366571275) AGAP (test code = 2-16 4966403595) BUN (test code = 21 mg/dL 7-23 8482351051) GLUCOSE (test code = 88 mg/dL 70-110 9535082004) CREATININE (test code = 1.31 mg/dL 0.60-1.25 H 6436525920) CALCIUM (test code = 8.5 mg/dL 8.6-10.6 L 5092936532) eGFR (test code = mL/min/1.73m2 0962443218) GILBERTO (test code = GILBERTO) Association of [...] tests). Lab Interpretation Abnormal (test code = 37019-0) [facility] WITH [id number] 08:13:43 Test Item Value Reference Range Interpretation [...] RDW-SD (test code = 43.0 fL 38.5-51.6 00040-4) RDW-CV (test code = 13.7 % 12.1-15.4 788-0) PLT (test code = See_Comment [Automated 777-3) message] The sy stem which generated this result transmitted reference range : 150 - 328 10*3/ ?L. The reference r meredith was not used to interpret this result as normal/abnormal . MPV (test code = 9.9 fL 9.8-13.0 08257-9) NRBC/100 WBC (test See_Comment [Automat ed code = 9996921922) message] The system which generated this result transmitted reference range : 0.0 - 10.0 /100 WBCs. The refer ence range was not u sed to interpret th is result as normal/abnormal . NRBC x10^3 (test code <0.01 See_Comment [Auto mated = 8855486092) message] The s ystem which generated this result transmitted reference range : 10*3/?L. The reference range was not used to interpret this result as normal/abnormal . GRAN MAT (NEUT) % 48.2 % (test code = 770-8) IMM GRAN % (test code 0.40 % = 6481022663) LYMPH % (test code = 39.5 % 736-9) MONO % (test code = 9.0 % 5905-5) EOS % (test code = 2.3 % 713-8) BASO % (test code = 0.6 % 706-2) GRAN MAT x10^3(ANC) 2.35 10*3/uL 1.99-6.95 (test code = 1670044482) IMM GRAN x10^3 (test <0.03 0.00-0.06 code = 0249920890) LYMPH x10^3 (test code 1.93 10*3/uL 1.09-3.23 = 731-0) MONO x10^3 (test code 0.44 10*3/uL 0.36-1.02 = 742-7) EOS x10^3 (test code = 0.11 10*3/uL 0.06-0.53 711-2) BASO x10^3 (test code 0.03 10*3/uL 0.01-0.09 = 704-7) Lab Interpretation Abnormal (test code = 05740-0) [facility] WITH [id number] 08:13:43 Test Item Value Reference Range Interpretation [...] RDW-SD (test code = 43.0 fL 38.5-51.6 27927-2) RDW-CV (test code = 13.7 % 12.1-15.4 788-0) PLT (test code = See_Comment [Automated 777-3) message] The sy stem which generated this result transmitted reference range : 150 - 328 10*3/ ?L. The reference r meredith was not used to interpret this result as normal/abnormal . MPV (test code = 9.9 fL 9.8-13.0 36378-7) NRBC/100 WBC (test See_Comment [Automat ed code = 7530279201) message] The system which generated this result transmitted reference range : 0.0 - 10.0 /100 WBCs. The refer ence range was not u sed to interpret th is result as normal/abnormal . NRBC x10^3 (test code <0.01 See_Comment [Auto mated = 5073429592) message] The s ystem which generated this result transmitted reference range : 10*3/?L. The reference range was not used to interpret this result as normal/abnormal . GRAN MAT (NEUT) % 48.2 % (test code = 770-8) IMM GRAN % (test code 0.40 % = 2456890566) LYMPH % (test code = 39.5 % 736-9) MONO % (test code = 9.0 % 5905-5) EOS % (test code = 2.3 % 713-8) BASO % (test code = 0.6 % 706-2) GRAN MAT x10^3(ANC) 2.35 10*3/uL 1.99-6.95 (test code = 3972440856) IMM GRAN x10^3 (test <0.03 0.00-0.06 code = 5021518899) LYMPH x10^3 (test code 1.93 10*3/uL 1.09-3.23 = 731-0) MONO x10^3 (test code 0.44 10*3/uL 0.36-1.02 = 742-7) EOS x10^3 (test code = 0.11 10*3/uL 0.06-0.53 711-2) BASO x10^3 (test code 0.03 10*3/uL 0.01-0.09 = 704-7) Lab Interpretation Abnormal (test code = 90424-7) [facility] [id number] 06:37:20 Test Item Value Reference Range Interpretation Comments MAGNESIUM (test code = 2236669148) 1.9 mg/dL 1.7-2.4 Lab Interpretation (test code = Normal 21596-3) [facility] [id number] 06:37:20 Test Item Value Reference Range Interpretation Comments MAGNESIUM (test code = 0607525955) 1.9 mg/dL 1.7-2.4 Lab Interpretation (test code = Normal 48978-7) [facility] METABOLIC PANEL (NA, K, CL, CO2, GLUCOSE, BUN, CREATININE, CA)2021-09-01 02:46:47 Test Item Value Reference Range Interpretation Comments NA (test code = 132 mmol/L 135-145 L 4430151786) K (test code = 4.0 mmol/L 3.5-5.0 8650211743) CL (test code = 102 mmol/L 98-108 5271572139) CO2 TOTAL (test code = 21 mmol/L 23-31 L 8717385379) AGAP (test code = 2-16 7310194155) BUN (test code = 24 mg/dL 7-23 H 6708600771) GLUCOSE (test code = 95 mg/dL 70-110 8929598150) CREATININE (test code = 1.40 mg/dL 0.60-1.25 H 4091301965) CALCIUM (test code = 8.6 mg/dL 8.6-10.6 3289496659) eGFR (test code = mL/min/1.73m2 5140941346) GILBERTO (test code = GILBERTO) Association of [...] tests). Lab Interpretation Abnormal (test code = 94876-3) [facility] METABOLIC PANEL (NA, K, CL, CO2, GLUCOSE, BUN, CREATININE, CA)2021-09-01 02:46:47 Test Item Value Reference Range Interpretation Comments NA (test code = 132 mmol/L 135-145 L 7012164665) K (test code = 4.0 mmol/L 3.5-5.0 1135629090) CL (test code = 102 mmol/L 98-108 7039657007) CO2 TOTAL (test code = 21 mmol/L 23-31 L 9085877080) AGAP (test code = 2-16 8523780311) BUN (test code = 24 mg/dL 7-23 H 6649156285) GLUCOSE (test code = 95 mg/dL 70-110 4287638467) CREATININE (test code = 1.40 mg/dL 0.60-1.25 H 6230712444) CALCIUM (test code = 8.6 mg/dL 8.6-10.6 4902669478) eGFR (test code = mL/min/1.73m2 6630575755) GILBERTO (test code = GILBERTO) Association of [...] tests). Lab Interpretation Abnormal (test code = 02750-3) [facility] Acid Whole [id number] 12:49:48 Test Item Value Reference Range Interpretation Comments LACTIC ACID (test code = 2.02 mmol/L 0.50-2.20 QUE S [id number]) Lab Interpretation (test code = Normal 47541-4) [facility] Acid Whole [id number] 12:49:48 Test Item Value Reference Range Interpretation Comments LACTIC ACID (test code = 2.02 mmol/L 0.50-2.20 QUE S [id number]) Lab Interpretation (test code = Normal 21160-1) [facility] METABOLIC PANEL (NA, K, CL, CO2, GLUCOSE, BUN, CREATININE, CA)2021-08-31 12:29:06 Test Item Value Reference Range Interpretation Comments NA (test code = 129 mmol/L 135-145 L 6649985244) K (test code = 3.6 mmol/L 3.5-5.0 1908523218) CL (test code = 101 mmol/L 98-108 1286659292) CO2 TOTAL (test code = 18 mmol/L 23-31 L 0428638795) AGAP (test code = 2-16 2215708521) BUN (test code = 35 mg/dL 7-23 H 0327483902) GLUCOSE (test code = 97 mg/dL 70-110 2356348312) CREATININE (test code = 1.58 mg/dL 0.60-1.25 H 2995714593) CALCIUM (test code = 8.3 mg/dL 8.6-10.6 L 1839857904) eGFR (test code = mL/min/1.73m2 2103855858) GILBERTO (test code = GILBERTO) Association of [...] tests). Lab Interpretation Abnormal (test code = 48102-3) [facility] (NA, K, CL, CO2, GLUCOSE, BUN, CREATININE, CA)2021-08-31 12:29:06 Test Item Value Reference Range Interpretation Comments NA (test code = 129 mmol/L 135-145 L 9978978292) K (test code = 3.6 mmol/L 3.5-5.0 7735247108) CL (test code = 101 mmol/L 98-108 4744291379) CO2 TOTAL (test code = 18 mmol/L 23-31 L 0938357169) AGAP (test code = 2-16 4897544311) BUN (test code = 35 mg/dL 7-23 H 1833390397) GLUCOSE (test code = 97 mg/dL 70-110 5750738633) CREATININE (test code = 1.58 mg/dL 0.60-1.25 H 4763009297) CALCIUM (test code = 8.3 mg/dL 8.6-10.6 L 8933679352) eGFR (test code = mL/min/1.73m2 5506477507) GILBERTO (test code = GILBERTO) Association of [...] tests). Lab Interpretation Abnormal (test code = 87644-9) [facility] [id number] 07:42:44 Test Item Value Reference Range Interpretation Comments TSH (test code = See_Comment [Automated message] 0246116130) The system [employer] generated this result transmitted ref erence range: 0.45 - 4 .70 mIU/L. The refe rence range was not u sed to interpret this result as normal/abnor mal. Lab Interpretation (test Normal code = 83020-2) [facility] [id number] 07:42:44 Test Item Value Reference Range Interpretation Comments TSH (test code = See_Comment [Automated message] 0084501462) The system [employer] generated this result transmitted ref erence range: 0.45 - 4 .70 mIU/L. The refe rence range was not u sed to interpret this result as normal/abnor mal. Lab Interpretation (test Normal code = 46943-9) [facility] METABOLIC PANEL (NA, K, CL, CO2, GLUCOSE, BUN, CREATININE, CA)2021-08-31 07:40:43 Test Item Value Reference Range Interpretation Comments NA (test code = 129 mmol/L 135-145 L 0353887405) K (test code = 3.8 mmol/L 3.5-5.0 Slight 5799600537) hemolysis CL (test code = 102 mmol/L 98-108 9534300597) CO2 TOTAL (test code 18 mmol/L 23-31 L = 5263585193) AGAP (test code = 2-16 5912118876) BUN (test code = 46 mg/dL 7-23 H Slight 3752532973) hemolysis GLUCOSE (test code = 100 mg/dL 70-110 7729385223) CREATININE (test code 1.72 mg/dL 0.60-1.25 H = 5948303336) CALCIUM (test code = 8.5 mg/dL 8.6-10.6 L 7487331436) eGFR (test code = mL/min/1.73m2 0562730869) GILBERTO (test code = GILBERTO) Association of [...] tests). Lab Interpretation Abnormal (test code = 00684-5) [facility] METABOLIC PANEL (NA, K, CL, CO2, GLUCOSE, BUN, CREATININE, CA)2021-08-31 07:40:43 Test Item Value Reference Range Interpretation Comments NA (test code = 129 mmol/L 135-145 L 6808129840) K (test code = 3.8 mmol/L 3.5-5.0 Slight 6476879212) hemolysis CL (test code = 102 mmol/L 98-108 0379417037) CO2 TOTAL (test code 18 mmol/L 23-31 L = 0698464489) AGAP (test code = 2-16 7619996807) BUN (test code = 46 mg/dL 7-23 H Slight 6666509436) hemolysis GLUCOSE (test code = 100 mg/dL 70-110 4860750427) CREATININE (test code 1.72 mg/dL 0.60-1.25 H = 7225991824) CALCIUM (test code = 8.5 mg/dL 8.6-10.6 L 1785366371) eGFR (test code = mL/min/1.73m2 3323084181) GILBERTO (test code = GILBERTO) Association of [...] tests). Lab Interpretation Abnormal (test code = 24963-9) [facility] HospitalL[facility] Whole [id number] 07:08:01 Test Item Value Reference Range Interpretation Comments LACTIC ACID (test code = 1.96 mmol/L 0.50-2.20 QUE S 5208279411) Lab Interpretation (test code = Normal 54295-2) [facility] [id number] 07:08:01 Test Item Value Reference Range Interpretation Comments LACTIC ACID (test code = 1.96 mmol/L 0.50-2.20 QUE S 7627377118) Lab Interpretation (test code = Normal 63614-7) [facility] HospitalOSMOLALITY, SERUM OR [id number] 06:33:43 Test Item Value Reference Range Interpretation Comments OSMOLALITY (test code = See_Comment [Au tomated message] 7246010745) The system [employer] generated this result transmitted ref erence range: 278 - 30 5 mOsm/kg. The re ference range was not u sed to interpret this result as normal/abnor mal. Lab Interpretation (test Normal code = 42467-5) [facility] HospitalOSMOLALITY, SERUM OR [id number] 06:33:43 Test Item Value Reference Range Interpretation Comments OSMOLALITY (test code = See_Comment [Au tomated message] 9088181020) The system [employer] generated this result transmitted ref erence range: 278 - 30 5 mOsm/kg. The re ference range was not u sed to interpret this result as normal/abnor mal. Lab Interpretation (test Normal code = 40756-9) [facility] HospitalTROPONIN [id number] 04:28:44 Test Item Value Reference Interpretation Comments Range TROPONIN I (test 0.003 ng/mL See_Comment [Automated code = 3662304382) message] The system which generated this result [...] biotin. Lab Interpretation Normal (test code = 24363-7) [facility] [id number] 04:28:44 Test Item Value Reference Interpretation Comments Range TROPONIN I (test 0.003 ng/mL See_Comment [Automated code = 3718827200) message] The system which generated this result [...] biotin. Lab Interpretation Normal (test code = 94417-5) [facility] METABOLIC PANEL (NA, K, CL, CO2, GLUCOSE, BUN, CREATININE, CA)2021-08-31 04:07:42 Test Item Value Reference Range Interpretation Comments NA (test code = 125 mmol/L 135-145 L 8924278106) K (test code = 4.1 mmol/L 3.5-5.0 Slight 7877143706) hemolysis CL (test code = 100 mmol/L 98-108 9523642622) CO2 TOTAL (test code 17 mmol/L 23-31 L = 8229274462) AGAP (test code = 2-16 6690513512) BUN (test code = 52 mg/dL 7-23 H Slight 8646421251) hemolysis GLUCOSE (test code = 94 mg/dL 70-110 1105198643) CREATININE (test code 1.77 mg/dL 0.60-1.25 H = 8021228340) CALCIUM (test code = 8.2 mg/dL 8.6-10.6 L 7288339071) eGFR (test code = mL/min/1.73m2 2811196147) GILBERTO (test code = GILBERTO) Association of [...] tests). Lab Interpretation Abnormal (test code = 91327-5) [facility] (NA, K, CL, CO2, GLUCOSE, BUN, CREATININE, CA)2021-08-31 04:07:42 Test Item Value Reference Range Interpretation Comments NA (test code = 125 mmol/L 135-145 L 9069837491) K (test code = 4.1 mmol/L 3.5-5.0 Slight 7840325630) hemolysis CL (test code = 100 mmol/L 98-108 3228745125) CO2 TOTAL (test code 17 mmol/L 23-31 L = 4274632077) AGAP (test code = 2-16 7272727880) BUN (test code = 52 mg/dL 7-23 H Slight 7775092113) hemolysis GLUCOSE (test code = 94 mg/dL 70-110 3281295399) CREATININE (test code 1.77 mg/dL 0.60-1.25 H = 0385349219) CALCIUM (test code = 8.2 mg/dL 8.6-10.6 L 6870760774) eGFR (test code = mL/min/1.73m2 0698897628) GILBERTO (test code = GILBERTO) Association of [...] tests). Lab Interpretation Abnormal (test code = 19088-6) [facility] [id number] 00:22:59 Test Item Value Reference Interpretation Comments Range TROPONIN I (test 0.003 ng/mL See_Comment [Automated code = 9639045007) message] The system which generated this result [...] biotin. Lab Interpretation Normal (test code = 95595-5) [facility] HospitalN-TERMINAL [id number] 00:22:59 Test Item Value Reference Range Interpretation Comments NT-proBNP (test code 55 pg/mL See_Comment [Autom ated = 3607325302) message] The system which generated this result transmitted reference range : <=125. The reference range was not used to interpret this result as normal/abnormal . GILBERTO (test code = GILBERTO) Biotin has been reported to cause a negative bias, interpret results relative to patient's use of biotin. Lab Interpretation Normal (test code = 40151-5) [facility] [id number] 00:22:59 Test Item Value Reference Interpretation Comments Range TROPONIN I (test 0.003 ng/mL See_Comment [Automated code = 0974135840) message] The system which generated this result [...] biotin. Lab Interpretation Normal (test code = 98683-2) [facility]N-[facility]AL [id number] 00:22:59 Test Item Value Reference Range Interpretation Comments NT-proBNP (test code 55 pg/mL See_Comment [Autom ated = 0983020878) message] The system which generated this result transmitted reference range : <=125. The reference range was not used to interpret this result as normal/abnormal . GILBERTO (test code = GILBERTO) Biotin has been reported to cause a negative bias, interpret results relative to patient's use of biotin. Lab Interpretation Normal (test code = 04535-2) [facility] HospitalCOMP. METABOLIC PANEL ([id number])2021-08-31 00:07:17 Test Item Value Reference Range Interpretation Comments NA (test code = 126 mmol/L 135-145 L 8766026140) K (test code = 4.3 mmol/L 3.5-5.0 Slight 3112018674) hemolysis CL (test code = 96 mmol/L 98-108 L 3327151493) CO2 TOTAL (test code 18 mmol/L 23-31 L = 4787554998) AGAP (test code = 2-16 5879012187) BUN (test code = 58 mg/dL 7-23 H Slight 9380224715) hemolysis GLUCOSE (test code = 108 mg/dL 70-110 9568391778) CREATININE (test code 2.11 mg/dL 0.60-1.25 H = 8442456347) TOTAL BILI (test code 0.7 mg/dL 0.1-1.1 = 5566142536) CALCIUM (test code = 9.2 mg/dL 8.6-10.6 4185594337) T PROTEIN (test code 7.6 g/dL 6.3-8.2 = 7549995731) ALBUMIN (test code = 4.9 g/dL 3.5-5.0 7205291178) ALK PHOS (test code = 96 U/L 34-122 Slight 2838273134) hemolysis ALTv (test code = 27 U/L 5-50 1742-6) AST(SGOT) (test code 46 U/L 13-40 H Slight = 9384179184) hemolysis eGFR (test code = mL/min/1.73m2 4846539908) GILBERTO (test code = GILBERTO) Association of [...] tests). Lab Interpretation Abnormal (test code = 30280-1) [facility] METABOLIC PANEL ([id number])2021-08-31 00:07:17 Test Item Value Reference Range Interpretation Comments NA (test code = 126 mmol/L 135-145 L 2942010298) K (test code = 4.3 mmol/L 3.5-5.0 Slight 3476561152) hemolysis CL (test code = 96 mmol/L 98-108 L 7351608648) CO2 TOTAL (test code 18 mmol/L 23-31 L = 6630268797) AGAP (test code = 2-16 7155181012) BUN (test code = 58 mg/dL 7-23 H Slight 1775399601) hemolysis GLUCOSE (test code = 108 mg/dL 70-110 9769258381) CREATININE (test code 2.11 mg/dL 0.60-1.25 H = 8508546618) TOTAL BILI (test code 0.7 mg/dL 0.1-1.1 = 5630413170) CALCIUM (test code = 9.2 mg/dL 8.6-10.6 0365763395) T PROTEIN (test code 7.6 g/dL 6.3-8.2 = 7419624265) ALBUMIN (test code = 4.9 g/dL 3.5-5.0 8965086633) ALK PHOS (test code = 96 U/L 34-122 Slight 4533664106) hemolysis ALTv (test code = 27 U/L 5-50 1742-6) AST(SGOT) (test code 46 U/L 13-40 H Slight = 4703764109) hemolysis eGFR (test code = mL/min/1.73m2 0789875900) GILBERTO (test code = GILBERTO) Association of [...] tests). Lab Interpretation Abnormal (test code = 79118-2) [facility] WITH [id number] 23:36:10 Test Item Value Reference Range Interpretation Comments WBC (test code = See_Comment [Automated 4363-2) message] The sy stem which generated this result transmitted reference range : 4.20 - 10.70 10*3/?L. The reference range was not used to interpret this result as normal/abnormal . RBC (test code = See_Comment [Automated 456-8) message] The sy stem which generated this [...] RDW-SD (test code = 41.7 fL 38.5-51.6 52010-9) RDW-CV (test code = 13.4 % 12.1-15.4 788-0) PLT (test code = See_Comment [Automated 927-3) message] The sy stem which generated this result transmitted reference range : 150 - 328 10*3/ ?L. The reference r meredith was not used to interpret this result as normal/abnormal . MPV (test code = 10.3 fL 9.8-13.0 09977-4) NRBC/100 WBC (test See_Comment [Automat ed code = 1326679522) message] The system which generated this result transmitted reference range : 0.0 - 10.0 /100 WBCs. The refer ence range was not u sed to interpret th is result as normal/abnormal . NRBC x10^3 (test code <0.01 See_Comment [Auto mated = 5125902417) message] The s ystem which generated this result transmitted reference range : 10*3/?L. The reference range was not used to interpret this result as normal/abnormal . GRAN MAT (NEUT) % 60.6 % (test code = 770-8) IMM GRAN % (test code 0.30 % = 7152352161) LYMPH % (test code = 29.1 % 736-9) MONO % (test code = 8.8 % 5905-5) EOS % (test code = 0.6 % 713-8) BASO % (test code = 0.6 % 706-2) GRAN MAT x10^3(ANC) 4.08 10*3/uL 1.99-6.95 (test code = 8091518806) IMM GRAN x10^3 (test <0.03 0.00-0.06 code = 5083874021) LYMPH x10^3 (test code 1.96 10*3/uL 1.09-3.23 = 731-0) MONO x10^3 (test code 0.59 10*3/uL 0.36-1.02 = 742-7) EOS x10^3 (test code = 0.04 10*3/uL 0.06-0.53 L 711-2) BASO x10^3 (test code 0.04 10*3/uL 0.01-0.09 = 704-7) Lab Interpretation Abnormal (test code = 76684-3) [facility] WITH [id number] 23:36:10 Test Item Value Reference Range Interpretation [...] RDW-SD (test code = 41.7 fL 38.5-51.6 53662-2) RDW-CV (test code = 13.4 % 12.1-15.4 788-0) PLT (test code = See_Comment [Automated 777-3) message] The sy stem which generated this result transmitted reference range : 150 - 328 10*3/ ?L. The reference r meredith was not used to interpret this result as normal/abnormal . MPV (test code = 10.3 fL 9.8-13.0 09542-8) NRBC/100 WBC (test See_Comment [Automat ed code = 8410687493) message] The system which generated this result transmitted reference range : 0.0 - 10.0 /100 WBCs. The refer ence range was not u sed to interpret th is result as normal/abnormal . NRBC x10^3 (test code <0.01 See_Comment [Auto mated = 5006367555) message] The s ystem which generated this result transmitted reference range : 10*3/?L. The reference range was not used to interpret this result as normal/abnormal . GRAN MAT (NEUT) % 60.6 % (test code = 770-8) IMM GRAN % (test code 0.30 % = 4452092038) LYMPH % (test code = 29.1 % 736-9) MONO % (test code = 8.8 % 5905-5) EOS % (test code = 0.6 % 713-8) BASO % (test code = 0.6 % 706-2) GRAN MAT x10^3(ANC) 4.08 10*3/uL 1.99-6.95 (test code = 5287745771) IMM GRAN x10^3 (test <0.03 0.00-0.06 code = 0584667599) LYMPH x10^3 (test code 1.96 10*3/uL 1.09-3.23 = 731-0) MONO x10^3 (test code 0.59 10*3/uL 0.36-1.02 = 742-7) EOS x10^3 (test code = 0.04 10*3/uL 0.06-0.53 L 711-2) BASO x10^3 (test code 0.04 10*3/uL 0.01-0.09 = 704-7) Lab Interpretation Abnormal (test code = 07956-9) [facility]POS[facility] RAPID STREP SCREEN FOR GROUP [id number] 00:24:00 Test Item Value Reference Range Interpretation Comments POCT GP A STREP (test code = Negative Negative - Negative 93295-6) Lab Interpretation (test code = Normal 87513-5) [facility]PREAL[facility]IN2021-12-13 11:38:43 Test Item Value Reference Range Interpretation Comments PALB (test code = 26916-4) 25.2 mg/dL 18.0-45.0 Lab Interpretation (test code = Normal 76804-0) [facility] METABOLIC PAN[facility] (NA, K, CL, CO2, GLUCOSE, BUN, CREATININE, CA)2021-08-05 11:30:59 Test Item Value Reference Range Interpretation Comments NA (test code = 140 mmol/L 135-145 3196204412) K (test code = 4.2 mmol/L 3.5-5.0 6462844259) CL (test code = 110 mmol/L 98-108 H 1347185855) CO2 TOTAL (test code = 27 mmol/L 23-31 0023392794) AGAP (test code = 2-16 2733906050) BUN (test code = 9 mg/dL 7-23 7288834291) GLUCOSE (test code = 86 mg/dL 70-110 6247156890) CREATININE (test code = 1.51 mg/dL 0.60-1.25 H 6797139593) CALCIUM (test code = 8.5 mg/dL 8.6-10.6 L 5486571493) eGFR (test code = mL/min/1.73m2 1789135246) GILBERTO (test code = GILBERTO) Association of [...] tests). Lab Interpretation Abnormal (test code = 65236-9) [facility]MAG[facility]UM2021-12-13 11:30:59 Test Item Value Reference Range Interpretation Comments MAGNESIUM (test code = 1688013803) 2.0 mg/dL 1.7-2.4 Lab Interpretation (test code = Normal 28673-2) [facility]PHOS[facility]US2021-12-13 11:30:59 Test Item Value Reference Range Interpretation Comments PHOSPHORUS (test code = 5204893398) 5.1 mg/dL 2.5-5.0 H Lab Interpretation (test code = Abnormal 53133-9) [facility]AL[facility]IN2021-12-13 11:30:59 Test Item Value Reference Range Interpretation Comments ALBUMIN (test code = 4924062667) 3.1 g/dL 3.5-5.0 L Lab Interpretation (test code = Abnormal 37098-2) [facility] HospitalCB WITH [id number] 11:05:58 Test Item Value Reference Range Interpretation [...] RDW-SD (test code = 47.5 fL 38.5-51.6 26910-2) RDW-CV (test code = 14.0 % 12.1-15.4 788-0) PLT (test code = See_Comment [Automated 777-3) message] The sy stem which generated this result transmitted reference range : 150 - 328 10*3/ ?L. The reference r meredith was not used to interpret this result as normal/abnormal . MPV (test code = 9.5 fL 9.8-13.0 L 06091-5) NRBC/100 WBC (test See_Comment [Automat ed code = 1276831863) message] The system which generated this result transmitted reference range : 0.0 - 10.0 /100 WBCs. The refer ence range was not u sed to interpret th is result as normal/abnormal . NRBC x10^3 (test code <0.01 See_Comment [Auto mated = 0426334608) message] The s ystem which generated this result transmitted reference range : 10*3/?L. The reference range was not used to interpret this result as normal/abnormal . GRAN MAT (NEUT) % 52.5 % (test code = 770-8) IMM GRAN % (test code 0.30 % = 0411099801) LYMPH % (test code = 31.1 % 736-9) MONO % (test code = 11.7 % 5905-5) EOS % (test code = 3.9 % 713-8) BASO % (test code = 0.5 % 706-2) GRAN MAT x10^3(ANC) 2.03 10*3/uL 1.99-6.95 (test code = 1225633072) IMM GRAN x10^3 (test <0.03 0.00-0.06 code = 8098615270) LYMPH x10^3 (test code 1.20 10*3/uL 1.09-3.23 = 731-0) MONO x10^3 (test code 0.45 10*3/uL 0.36-1.02 = 742-7) EOS x10^3 (test code = 0.15 10*3/uL 0.06-0.53 711-2) BASO x10^3 (test code <0.03 0.01-0.09 = 704-7) Lab Interpretation Abnormal (test code = 42785-6) [facility] WITH [id number] 12:30:17 Test Item Value Reference Range Interpretation [...] RDW-SD (test code = 49.2 fL 38.5-51.6 27408-5) RDW-CV (test code = 14.3 % 12.1-15.4 788-0) PLT (test code = See_Comment [Automated 777-3) message] The sy stem which generated this result transmitted reference range : 150 - 328 10*3/ ?L. The reference r meredith was not used to interpret this result as normal/abnormal . MPV (test code = 9.2 fL 9.8-13.0 L 42073-6) NRBC/100 WBC (test See_Comment [Automat ed code = 8566186689) message] The system which generated this result transmitted reference range : 0.0 - 10.0 /100 WBCs. The refer ence range was not u sed to interpret th is result as normal/abnormal . NRBC x10^3 (test code <0.01 See_Comment [Auto mated = 9738824971) message] The s ystem which generated this result transmitted reference range : 10*3/?L. The reference range was not used to interpret this result as normal/abnormal . GRAN MAT (NEUT) % 47.2 % (test code = 770-8) IMM GRAN % (test code 0.30 % = 9172924848) LYMPH % (test code = 36.0 % 736-9) MONO % (test code = 12.6 % 5905-5) EOS % (test code = 3.4 % 713-8) BASO % (test code = 0.5 % 706-2) GRAN MAT x10^3(ANC) 1.80 10*3/uL 1.99-6.95 L (test code = 6225970008) IMM GRAN x10^3 (test <0.03 0.00-0.06 code = 5685659250) LYMPH x10^3 (test code 1.37 10*3/uL 1.09-3.23 = 731-0) MONO x10^3 (test code 0.48 10*3/uL 0.36-1.02 = 742-7) EOS x10^3 (test code = 0.13 10*3/uL 0.06-0.53 711-2) BASO x10^3 (test code <0.03 0.01-0.09 = 704-7) Lab Interpretation Abnormal (test code = 42749-6) [facility] METABOLIC PANEL (NA, K, CL, CO2, GLUCOSE, BUN, CREATININE, CA)2021-08-04 12:17:48 Test Item Value Reference Range Interpretation Comments NA (test code = 139 mmol/L 135-145 1540171381) K (test code = 4.3 mmol/L 3.5-5.0 5161704297) CL (test code = 110 mmol/L 98-108 H 6024867944) CO2 TOTAL (test code = 26 mmol/L 23-31 8624132549) AGAP (test code = 2-16 0657794527) BUN (test code = 8 mg/dL 7-23 7263126530) GLUCOSE (test code = 87 mg/dL 70-110 6759321726) CREATININE (test code = 1.50 mg/dL 0.60-1.25 H 8431358414) CALCIUM (test code = 8.4 mg/dL 8.6-10.6 L 7082106059) eGFR (test code = mL/min/1.73m2 1476115668) GILBERTO (test code = GILBERTO) Association of [...] tests). Lab Interpretation Abnormal (test code = 39704-1) [facility] 12:17:48 Test Item Value Reference Range Interpretation Comments MAGNESIUM (test code = 9402386084) 1.9 mg/dL 1.7-2.4 Lab Interpretation (test code = Normal 48252-3) [facility]2021-[facility]-12 12:17:48 Test Item Value Reference Range Interpretation Comments PHOSPHORUS (test code = 8230248434) 4.6 mg/dL 2.5-5.0 Lab Interpretation (test code = Normal 11829-4) [facility] WITH [id number] 11:23:38 Test Item Value Reference Range Interpretation Comments WBC (test code = See_Comment L [Automated 9190-2) message] The sy stem which [...] RDW-SD (test code = 47.8 fL 38.5-51.6 34692-2) RDW-CV (test code = 14.1 % 12.1-15.4 788-0) PLT (test code = See_Comment [Automated 777-3) message] The sy stem which generated this result transmitted reference range : 150 - 328 10*3/ ?L. The reference r meredith was not used to interpret this result as normal/abnormal . MPV (test code = 9.3 fL 9.8-13.0 L 32604-1) NRBC/100 WBC (test See_Comment [Automat ed code = 4714297625) message] The system which generated this result transmitted reference range : 0.0 - 10.0 /100 WBCs. The refer ence range was not u sed to interpret th is result as normal/abnormal . NRBC x10^3 (test code <0.01 See_Comment [Auto mated = 6358477773) message] The s ystem which generated this result transmitted reference range : 10*3/?L. The reference range was not used to interpret this result as normal/abnormal . GRAN MAT (NEUT) % 49.3 % (test code = 770-8) IMM GRAN % (test code 0.30 % = 1059959729) LYMPH % (test code = 34.6 % 736-9) MONO % (test code = 12.0 % 5905-5) EOS % (test code = 3.3 % 713-8) BASO % (test code = 0.5 % 706-2) GRAN MAT x10^3(ANC) 1.97 10*3/uL 1.99-6.95 L (test code = [id number]) IMM GRAN x10^3 (test <0.03 0.00-0.06 code = [id number]) LYMPH x10^3 (test code 1.38 10*3/uL 1.09-3.23 = 731-0) MONO x10^3 (test code 0.48 10*3/uL 0.36-1.02 = 742-7) EOS x10^3 (test code = 0.13 10*3/uL 0.06-0.53 711-2) BASO x10^3 (test code <0.03 0.01-0.09 = 704-7) Lab Interpretation Abnormal (test code = 92902-1) [facility] METABOLIC PANEL (NA, K, CL, CO2, GLUCOSE, BUN, CREATININE, CA)2021-08-03 11:18:55 Test Item Value Reference Range Interpretation Comments NA (test code = 139 mmol/L 135-145 [id number]) K (test code = 4.1 mmol/L 3.5-5.0 [id number]) CL (test code = 110 mmol/L 98-108 H [id number]) CO2 TOTAL (test code = 27 mmol/L 23-31 3697616614) AGAP (test code = 2-16 9541684689) BUN (test code = 8 mg/dL 7-23 1714540454) GLUCOSE (test code = 93 mg/dL 70-110 1344513540) CREATININE (test code = 1.39 mg/dL 0.60-1.25 H 6499079621) CALCIUM (test code = 8.1 mg/dL 8.6-10.6 L 2921732663) eGFR (test code = mL/min/1.73m2 3967966484) GILBERTO (test code = GILBERTO) Association of [...] tests). Lab Interpretation Abnormal (test code = 29583-1) [facility] 11:18:55 Test Item Value Reference Range Interpretation Comments MAGNESIUM (test code = 4910098769) 2.0 mg/dL 1.7-2.4 Lab Interpretation (test code = Normal 59614-0) [facility]2021[facility]-11 11:18:55 Test Item Value Reference Range Interpretation Comments PHOSPHORUS (test code = 7346783770) 3.8 mg/dL 2.5-5.0 Lab Interpretation (test code = Normal 64618-2) [facility]OL[facility] (NA, K, CL, CO2, GLUCOSE, BUN, CREATININE, CA)2021-08-02 14:06:51 Test Item Value Reference Range Interpretation Comments NA (test code = 137 mmol/L 135-145 4889482835) K (test code = 4.4 mmol/L 3.5-5.0 4801594104) CL (test code = 108 mmol/L 98-108 7036447562) CO2 TOTAL (test code = 24 mmol/L 23-31 2826870467) AGAP (test code = 2-16 1369365988) BUN (test code = 10 mg/dL 7-23 4124416867) GLUCOSE (test code = 83 mg/dL 70-110 4790703833) CREATININE (test code = 1.48 mg/dL 0.60-1.25 H 3755434441) CALCIUM (test code = 8.4 mg/dL 8.6-10.6 L 6653460764) eGFR (test code = mL/min/1.73m2 1076700677) GILBERTO (test code = GILBERTO) Association of [...] tests). Lab Interpretation Abnormal (test code = 51305-5) [facility]10 14:06:51 Test Item Value Reference Range Interpretation Comments MAGNESIUM (test code = 4132619885) 2.1 mg/dL 1.7-2.4 Lab Interpretation (test code = Normal 68804-0) [facility]21[facility]10 14:06:51 Test Item Value Reference Range Interpretation Comments PHOSPHORUS (test code = 2369060397) 4.6 mg/dL 2.5-5.0 Lab Interpretation (test code = Normal 40319-0) [facility] WITH [id number] 12:30:05 Test Item Value Reference Range Interpretation [...] RDW-SD (test code = 48.6 fL 38.5-51.6 12202-1) RDW-CV (test code = 14.3 % 12.1-15.4 788-0) PLT (test code = See_Comment [Automated 777-3) message] The sy stem which generated this result transmitted reference range : 150 - 328 10*3/ ?L. The reference r meredith was not used to interpret this result as normal/abnormal . MPV (test code = 10.0 fL 9.8-13.0 71071-9) NRBC/100 WBC (test See_Comment [Automat ed code = 1742032487) message] The system which generated this result transmitted reference range : 0.0 - 10.0 /100 WBCs. The refer ence range was not u sed to interpret th is result as normal/abnormal . NRBC x10^3 (test code <0.01 See_Comment [Auto mated = 1932397916) message] The s ystem which generated this result transmitted reference range : 10*3/?L. The reference range was not used to interpret this result as normal/abnormal . GRAN MAT (NEUT) % 51.9 % (test code = 770-8) IMM GRAN % (test code 0.60 % = 0601805938) LYMPH % (test code = 32.7 % 736-9) MONO % (test code = 11.3 % 5905-5) EOS % (test code = 3.2 % 713-8) BASO % (test code = 0.3 % 706-2) GRAN MAT x10^3(ANC) 1.80 10*3/uL 1.99-6.95 L (test code = 4817214068) IMM GRAN x10^3 (test <0.03 0.00-0.06 code = 5723391756) LYMPH x10^3 (test code 1.13 10*3/uL 1.09-3.23 = 731-0) MONO x10^3 (test code 0.39 10*3/uL 0.36-1.02 = 742-7) EOS x10^3 (test code = 0.11 10*3/uL 0.06-0.53 711-2) BASO x10^3 (test code <0.03 0.01-0.09 = 704-7) Lab Interpretation Abnormal (test code = 79690-7) [facility] WITH [id number] 10:44:18 Test Item Value Reference Range Interpretation [...] RDW-SD (test code = 48.0 fL 38.5-51.6 18952-6) RDW-CV (test code = 14.1 % 12.1-15.4 788-0) PLT (test code = See_Comment [Automated 777-3) message] The sy stem which generated this result transmitted reference range : 150 - 328 10*3/ ?L. The reference r meredith was not used to interpret this result as normal/abnormal . MPV (test code = 9.5 fL 9.8-13.0 L 03253-3) NRBC/100 WBC (test See_Comment [Automat ed code = 8703006177) message] The system which generated this result transmitted reference range : 0.0 - 10.0 /100 WBCs. The refer ence range was not u sed to interpret th is result as normal/abnormal . NRBC x10^3 (test code <0.01 See_Comment [Auto mated = 4991520924) message] The s ystem which generated this result transmitted reference range : 10*3/?L. The reference range was not used to interpret this result as normal/abnormal . GRAN MAT (NEUT) % 50.8 % (test code = 770-8) IMM GRAN % (test code 0.30 % = 2043540936) LYMPH % (test code = 34.6 % 736-9) MONO % (test code = 10.3 % 5905-5) EOS % (test code = 3.7 % 713-8) BASO % (test code = 0.3 % 706-2) GRAN MAT x10^3(ANC) 1.78 10*3/uL 1.99-6.95 L (test code = 5728519880) IMM GRAN x10^3 (test <0.03 0.00-0.06 code = 0472800352) LYMPH x10^3 (test code 1.21 10*3/uL 1.09-3.23 = 731-0) MONO x10^3 (test code 0.36 10*3/uL 0.36-1.02 = 742-7) EOS x10^3 (test code = 0.13 10*3/uL 0.06-0.53 711-2) BASO x10^3 (test code <0.03 0.01-0.09 = 704-7) Lab Interpretation Abnormal (test code = 39749-2) [facility] METABOLIC PANEL (NA, K, CL, CO2, GLUCOSE, BUN, CREATININE, CA)2021-08-01 10:25:17 Test Item Value Reference Range Interpretation Comments NA (test code = 138 mmol/L 135-145 4876258604) K (test code = 4.1 mmol/L 3.5-5.0 2901176944) CL (test code = 105 mmol/L 98-108 2089476497) CO2 TOTAL (test code = 28 mmol/L 23-31 5985606660) AGAP (test code = 2-16 3963510961) BUN (test code = 13 mg/dL 7-23 7915452915) GLUCOSE (test code = 86 mg/dL 70-110 3110409176) CREATININE (test code = 1.46 mg/dL 0.60-1.25 H 3482181943) CALCIUM (test code = 8.7 mg/dL 8.6-10.6 8083165783) eGFR (test code = mL/min/1.73m2 6040627590) GILBERTO (test code = GILBERTO) Association of [...] tests). Lab Interpretation Abnormal (test code = 44418-5) [facility]2021-[facility]-09 10:25:17 Test Item Value Reference Range Interpretation Comments MAGNESIUM (test code = 4306956779) 1.6 mg/dL 1.7-2.4 L Lab Interpretation (test code = Abnormal 81435-8) [facility]2021-12-09 10:25:17 Test Item Value Reference Range Interpretation Comments PHOSPHORUS (test code = 0179059884) 4.1 mg/dL 2.5-5.0 Lab Interpretation (test code = Normal 67320-4) [facility]PRE[facility]IN2021-12-08 16:18:34 Test Item Value Reference Range Interpretation Comments PALB (test code = 77935-8) 24.3 mg/dL 18.0-45.0 Lab Interpretation (test code = Normal 40324-6) [facility] WITH [id number] 11:20:19 Test Item Value Reference Range Interpretation Comments WBC (test code = See_Comment L [Automated 5990-2) message] The sy stem which generated this result transmitted reference range : 4.20 - 10.70 10*3/?L. The reference range was not used to interpret this result as normal/abnormal . RBC (test code = See_Comment L [Automated 819-8) message] The sy stem which generated this [...] RDW-SD (test code = 49.6 fL 38.5-51.6 27630-1) RDW-CV (test code = 14.6 % 12.1-15.4 788-0) PLT (test code = See_Comment [Automated 777-3) message] The sy stem which generated this result transmitted reference range : 150 - 328 10*3/ ?L. The reference r meredith was not used to interpret this result as normal/abnormal . MPV (test code = 9.6 fL 9.8-13.0 L 82212-2) NRBC/100 WBC (test See_Comment [Automat ed code = 9611382105) message] The system which generated this result transmitted reference range : 0.0 - 10.0 /100 WBCs. The refer ence range was not u sed to interpret th is result as normal/abnormal . NRBC x10^3 (test code <0.01 See_Comment [Auto mated = 8390557532) message] The s ystem which generated this result transmitted reference range : 10*3/?L. The reference range was not used to interpret this result as normal/abnormal . GRAN MAT (NEUT) % 49.1 % (test code = 770-8) IMM GRAN % (test code 0.30 % = 2188453087) LYMPH % (test code = 36.0 % 736-9) MONO % (test code = 10.6 % 5905-5) EOS % (test code = 3.4 % 713-8) BASO % (test code = 0.6 % 706-2) GRAN MAT x10^3(ANC) 1.76 10*3/uL 1.99-6.95 L (test code = 2141329856) IMM GRAN x10^3 (test <0.03 0.00-0.06 code = 8204455626) LYMPH x10^3 (test code 1.29 10*3/uL 1.09-3.23 = 731-0) MONO x10^3 (test code 0.38 10*3/uL 0.36-1.02 = 742-7) EOS x10^3 (test code = 0.12 10*3/uL 0.06-0.53 711-2) BASO x10^3 (test code <0.03 0.01-0.09 = 704-7) Lab Interpretation Abnormal (test code = 74599-2) [facility] METABOLIC PANEL (NA, K, CL, CO2, GLUCOSE, BUN, CREATININE, CA)2021-07-31 11:11:17 Test Item Value Reference Range Interpretation Comments NA (test code = 135 mmol/L 135-145 1338930296) K (test code = 3.8 mmol/L 3.5-5.0 4439567404) CL (test code = 108 mmol/L 98-108 2494571268) CO2 TOTAL (test code = 24 mmol/L 23-31 2135457381) AGAP (test code = 2-16 8418448831) BUN (test code = 13 mg/dL 7-23 9537865266) GLUCOSE (test code = 88 mg/dL 70-110 2991908133) CREATININE (test code = 1.32 mg/dL 0.60-1.25 H 8241544692) CALCIUM (test code = 8.4 mg/dL 8.6-10.6 L 2616901046) eGFR (test code = mL/min/1.73m2 0975139644) GILBERTO (test code = GILBERTO) Association of [...] tests). Lab Interpretation Abnormal (test code = 78472-2) [facility]2021[facility] 11:11:17 Test Item Value Reference Range Interpretation Comments MAGNESIUM (test code = 2186499698) 1.8 mg/dL 1.7-2.4 Lab Interpretation (test code = Normal 85799-2) [facility]2021-[facility]-08 11:11:17 Test Item Value Reference Range Interpretation Comments PHOSPHORUS (test code = 5604843670) 4.0 mg/dL 2.5-5.0 Lab Interpretation (test code = Normal 18152-7) [facility]COMP[facility] METABOLIC PANEL (35768)2021-07-30 03:46:32 Test Item Value Reference Range Interpretation Comments NA (test code = 132 mmol/L 135-145 L 5762477202) K (test code = 4.4 mmol/L 3.5-5.0 2512744899) CL (test code = 102 mmol/L 98-108 6949916878) CO2 TOTAL (test code = 24 mmol/L 23-31 8052732913) AGAP (test code = 2-16 6964773369) BUN (test code = 21 mg/dL 7-23 1430467187) GLUCOSE (test code = 95 mg/dL 70-110 9176686139) CREATININE (test code = 1.76 mg/dL 0.60-1.25 H 1258281255) TOTAL BILI (test code = 0.7 mg/dL 0.1-1.6 9969737852) CALCIUM (test code = 8.8 mg/dL 8.6-10.6 0715175516) T PROTEIN (test code = 6.0 g/dL 6.3-8.2 L 0731739893) ALBUMIN (test code = 3.8 g/dL 3.5-5.0 4392015282) ALK PHOS (test code = 67 U/L 34-122 3677036128) ALTv (test code = 47 U/L 5-50 2-6) AST(SGOT) (test code = 39 U/L 13-40 4208279645) eGFR (test code = mL/min/1.73m2 6570913986) GILBERTO (test code = GILBERTO) Association of [...] tests). Lab Interpretation Abnormal (test code = 63482-7) [facility] HospitalLIP[facility]2021-[facility] 03:19:26 Test Item Value Reference Range Interpretation Comments LIPASE (test code = 0058721485) 58 U/L 0-220 Lab Interpretation (test code = Normal 52094-2) [facility] WITH [id number] 03:07:20 Test Item Value Reference Range Interpretation [...] RDW-SD (test code = 47.4 fL 38.5-51.6 77027-4) RDW-CV (test code = 14.2 % 12.1-15.4 788-0) PLT (test code = See_Comment [Automated 777-3) message] The sy stem which generated this result transmitted reference range : 150 - 328 10*3/ ?L. The reference r meredith was not used to interpret this result as normal/abnormal . MPV (test code = 9.9 fL 9.8-13.0 14409-4) NRBC/100 WBC (test See_Comment [Automat ed code = 4453175676) message] The system which generated this result transmitted reference range : 0.0 - 10.0 /100 WBCs. The refer ence range was not u sed to interpret th is result as normal/abnormal . NRBC x10^3 (test code <0.01 See_Comment [Auto mated = 1423439627) message] The s ystem which generated this result transmitted reference range : 10*3/?L. The reference range was not used to interpret this result as normal/abnormal . GRAN MAT (NEUT) % 61.1 % (test code = 770-8) IMM GRAN % (test code 0.20 % = 3765152086) LYMPH % (test code = 24.4 % 736-9) MONO % (test code = 11.8 % 5905-5) EOS % (test code = 2.2 % 713-8) BASO % (test code = 0.3 % 706-2) GRAN MAT x10^3(ANC) 3.98 10*3/uL 1.99-6.95 (test code = 3136366054) IMM GRAN x10^3 (test <0.03 0.00-0.06 code = 2801857081) LYMPH x10^3 (test code 1.59 10*3/uL 1.09-3.23 = 731-0) MONO x10^3 (test code 0.77 10*3/uL 0.36-1.02 = 742-7) EOS x10^3 (test code = 0.14 10*3/uL 0.06-0.53 711-2) BASO x10^3 (test code <0.03 0.01-0.09 = 704-7) Lab Interpretation Abnormal (test code = 59789-1) [facility] HospitalL[facility] Acid Whole [id number] 03:00:47 Test Item Value Reference Range Interpretation Comments LACTIC ACID (test code = 1.45 mmol/L 0.50-2.20 QUE S 7031587727) Lab Interpretation (test code = Normal 52728-6) [facility] HospitalCOMPREHENSIVE METABOLIC [id number] 11:51:00 Test Item Value Reference Range Interpretation [...] Units/L 50.0-136.0 N code = ALKP) PROTHROMBIN [id number] 11:41:00 Test Item Value Reference Range Interpretation Comments PROTHROMBIN TIME 10.9 SECONDS 9.9-12.8 N PATIENT (test code = PTP) INTERNATIONAL NORMAL 0.9 0.89-1.14 N THE INR IS TO BE USED RATIO (test code = ONLY FOR MONITORING INR) ORAL ANTICOAGULANTTH ERAPY. THE FOLLOWING A RE SUGGESTED RANGE S FROM [facility] LEGE OF CHEST PHYSICIANS:ROOPA CATION INR VALUEPROPHY [...] D ANTIBODIES 2.5 - 3.5 CBC W/AUTO [id number] 11:36:00 Test Item Value Reference Range Interpretation [...] NA (test code = 137 mmol/L 135-145 7636985077) K (test code = 4.2 mmol/L 3.5-5.0 0056651887) CL (test code = 109 mmol/L 98-108 H 3191388823) CO2 TOTAL (test code = 25 mmol/L 23-31 6702696616) AGAP (test code = 2-16 3307266554) BUN (test code = 11 mg/dL 7-23 7094139128) GLUCOSE (test code = 83 mg/dL 70-110 8008366853) CREATININE (test code = 1.40 mg/dL 0.60-1.25 H 1705179628) CALCIUM (test code = 8.6 mg/dL 8.6-10.6 6975874264) eGFR (test code = mL/min/1.73m2 9429794318) GILBERTO (test code = GILBERTO) Association of [...] tests). Lab Interpretation Abnormal (test code = 22155-9) [facility]2021[facility]-03 13:15:26 Test Item Value Reference Range Interpretation Comments MAGNESIUM (test code = 8467509681) 1.6 mg/dL 1.7-2.4 L Lab Interpretation (test code = Abnormal 90617-0) [facility]2021-[facility]-03 13:15:26 Test Item Value Reference Range Interpretation Comments PHOSPHORUS (test code = 8797780329) 3.5 mg/dL 2.5-5.0 Lab Interpretation (test code = Normal 48253-2) [facility] WITH [id number] 12:50:41 Test Item Value Reference Range Interpretation [...] RDW-SD (test code = 46.7 fL 38.5-51.6 61754-2) RDW-CV (test code = 14.3 % 12.1-15.4 788-0) PLT (test code = See_Comment [Automated 777-3) message] The sy stem which generated this result transmitted reference range : 150 - 328 10*3/ ?L. The reference r meredith was not used to interpret this result as normal/abnormal . MPV (test code = 9.6 fL 9.8-13.0 L 83882-6) NRBC/100 WBC (test See_Comment [Automat ed code = 6841606813) message] The system which generated this result transmitted reference range : 0.0 - 10.0 /100 WBCs. The refer ence range was not u sed to interpret th is result as normal/abnormal . NRBC x10^3 (test code <0.01 See_Comment [Auto mated = 6802169201) message] The s ystem which generated this result transmitted reference range : 10*3/?L. The reference range was not used to interpret this result as normal/abnormal . GRAN MAT (NEUT) % 52.7 % (test code = 770-8) IMM GRAN % (test code 0.40 % = 2976258080) LYMPH % (test code = 33.7 % 736-9) MONO % (test code = 10.4 % 5905-5) EOS % (test code = 2.4 % 713-8) BASO % (test code = 0.4 % 706-2) GRAN MAT x10^3(ANC) 2.65 10*3/uL 1.99-6.95 (test code = 0771014054) IMM GRAN x10^3 (test <0.03 0.00-0.06 code = 6787919136) LYMPH x10^3 (test code 1.69 10*3/uL 1.09-3.23 = 731-0) MONO x10^3 (test code 0.52 10*3/uL 0.36-1.02 = 742-7) EOS x10^3 (test code = 0.12 10*3/uL 0.06-0.53 711-2) BASO x10^3 (test code <0.03 0.01-0.09 = 704-7) Lab Interpretation Abnormal (test code = 61242-2) [facility]2021-[facility]-02 12:35:59 Test Item Value Reference Range Interpretation Comments MAGNESIUM (test code = 8791956436) 1.6 mg/dL 1.7-2.4 L Lab Interpretation (test code = Abnormal 60499-6) [facility]2021-[facility]-02 12:35:59 Test Item Value Reference Range Interpretation Comments PHOSPHORUS (test code = 8343980047) 4.0 mg/dL 2.5-5.0 Lab Interpretation (test code = Normal 03305-7) [facility] (NA, K, CL, CO2, GLUCOSE, BUN, CREATININE, CA)2021-07-25 12:09:12 Test Item Value Reference Range Interpretation Comments NA (test code = 139 mmol/L 135-145 5110731236) K (test code = 4.1 mmol/L 3.5-5.0 3580683329) CL (test code = 111 mmol/L 98-108 H 6358122110) CO2 TOTAL (test code = 25 mmol/L 23-31 3770142153) AGAP (test code = 2-16 6570221677) BUN (test code = 13 mg/dL 7-23 6266442155) GLUCOSE (test code = 86 mg/dL 70-110 6428119974) CREATININE (test code = 1.43 mg/dL 0.60-1.25 H 5206485917) CALCIUM (test code = 8.4 mg/dL 8.6-10.6 L 2655064453) eGFR (test code = mL/min/1.73m2 0829052774) GILBERTO (test code = GILBERTO) Association of [...] tests). Lab Interpretation Abnormal (test code = 78113-3) [facility] WITH [id number] 11:44:33 Test Item Value Reference Range Interpretation Comments WBC (test code = See_Comment [Automated 7490-2) message] The sy stem which generated this result transmitted reference range : 4.20 - 10.70 10*3/?L. The reference range was not used to interpret this result as normal/abnormal . RBC (test code = See_Comment L [Automated 819-8) message] The sy stem which generated this [...] RDW-SD (test code = 48.9 fL 38.5-51.6 52062-3) RDW-CV (test code = 14.3 % 12.1-15.4 788-0) PLT (test code = See_Comment [Automated 777-3) message] The sy stem which generated this result transmitted reference range : 150 - 328 10*3/ ?L. The reference r meredith was not used to interpret this result as normal/abnormal . MPV (test code = 9.6 fL 9.8-13.0 L 89132-6) NRBC/100 WBC (test See_Comment [Automat ed code = 3496876937) message] The system which generated this result transmitted reference range : 0.0 - 10.0 /100 WBCs. The refer ence range was not u sed to interpret th is result as normal/abnormal . NRBC x10^3 (test code <0.01 See_Comment [Auto mated = 4756955985) message] The s ystem which generated this result transmitted reference range : 10*3/?L. The reference range was not used to interpret this result as normal/abnormal . GRAN MAT (NEUT) % 50.0 % (test code = 770-8) IMM GRAN % (test code 0.20 % = 6594440342) LYMPH % (test code = 36.7 % 736-9) MONO % (test code = 10.0 % 5905-5) EOS % (test code = 2.6 % 713-8) BASO % (test code = 0.5 % 706-2) GRAN MAT x10^3(ANC) 2.11 10*3/uL 1.99-6.95 (test code = 1765902386) IMM GRAN x10^3 (test <0.03 0.00-0.06 code = 0018845340) LYMPH x10^3 (test code 1.55 10*3/uL 1.09-3.23 = 731-0) MONO x10^3 (test code 0.42 10*3/uL 0.36-1.02 = 742-7) EOS x10^3 (test code = 0.11 10*3/uL 0.06-0.53 711-2) BASO x10^3 (test code <0.03 0.01-0.09 = 704-7) Lab Interpretation Abnormal (test code = 59868-8) [facility] WITH [id number] 04:23:56 Test Item Value Reference Range Interpretation [...] RDW-SD (test code = 49.0 fL 38.5-51.6 20645-3) RDW-CV (test code = 14.4 % 12.1-15.4 788-0) PLT (test code = See_Comment [Automated 777-3) message] The sy stem which generated this result transmitted reference range : 150 - 328 10*3/ ?L. The reference r mereidth was not used to interpret this result as normal/abnormal . MPV (test code = 9.5 fL 9.8-13.0 L 31391-4) NRBC/100 WBC (test See_Comment [Automat ed code = 0069719155) message] The system which generated this result transmitted reference range : 0.0 - 10.0 /100 WBCs. The refer ence range was not u sed to interpret th is result as normal/abnormal . NRBC x10^3 (test code <0.01 See_Comment [Auto mated = 2695548481) message] The s ystem which generated this result transmitted reference range : 10*3/?L. The reference range was not used to interpret this result as normal/abnormal . GRAN MAT (NEUT) % 49.9 % (test code = 770-8) IMM GRAN % (test code 0.20 % = 1244240117) LYMPH % (test code = 35.2 % 736-9) MONO % (test code = 11.7 % 5905-5) EOS % (test code = 2.4 % 713-8) BASO % (test code = 0.6 % 706-2) GRAN MAT x10^3(ANC) 2.31 10*3/uL 1.99-6.95 (test code = 2198826375) IMM GRAN x10^3 (test <0.03 0.00-0.06 code = 9577530276) LYMPH x10^3 (test code 1.63 10*3/uL 1.09-3.23 = 731-0) MONO x10^3 (test code 0.54 10*3/uL 0.36-1.02 = 742-7) EOS x10^3 (test code = 0.11 10*3/uL 0.06-0.53 711-2) BASO x10^3 (test code 0.03 10*3/uL 0.01-0.09 = 704-7) Lab Interpretation Abnormal (test code = 17322-8) [facility] METABOLIC PANEL (NA, K, CL, CO2, GLUCOSE, BUN, CREATININE, CA)2021-07-24 12:55:24 Test Item Value Reference Range Interpretation Comments NA (test code = 135 mmol/L 135-145 3587080941) K (test code = 4.0 mmol/L 3.5-5.0 9912440934) CL (test code = 109 mmol/L 98-108 H 9281687323) CO2 TOTAL (test code = 22 mmol/L 23-31 L 0333836679) AGAP (test code = 2-16 7945425762) BUN (test code = 12 mg/dL 7-23 7614022331) GLUCOSE (test code = 102 mg/dL 70-110 2815288892) CREATININE (test code = 1.27 mg/dL 0.60-1.25 H 3181824132) CALCIUM (test code = 8.6 mg/dL 8.6-10.6 9307384860) eGFR (test code = mL/min/1.73m2 4464171110) GILBERTO (test code = GILBERTO) Association of [...] tests). Lab Interpretation Abnormal (test code = 36383-6) [facility] 12:55:24 Test Item Value Reference Range Interpretation Comments MAGNESIUM (test code = 6103003437) 1.7 mg/dL 1.7-2.4 Lab Interpretation (test code = Normal 19362-4) [facility] 12:55:24 Test Item Value Reference Range Interpretation Comments PHOSPHORUS (test code = 4813565595) 3.1 mg/dL 2.5-5.0 Lab Interpretation (test code = Normal 94608-9) [facility] (NA, K, CL, CO2, Glucose, BUN, Creatinine, CA)2021-07-23 13:27:55 Test Item Value Reference Range Interpretation Comments NA (test code = 134 mmol/L 135-145 L 1432306938) K (test code = 3.8 mmol/L 3.5-5.0 9822058474) CL (test code = 107 mmol/L 98-108 8985257060) CO2 TOTAL (test code = 21 mmol/L 23-31 L 4225886363) AGAP (test code = 2-16 7059701983) BUN (test code = 18 mg/dL 7-23 4675602793) GLUCOSE (test code = 120 mg/dL 70-110 H 3826552029) CREATININE (test code = 1.46 mg/dL 0.60-1.25 H 1011651958) CALCIUM (test code = 8.7 mg/dL 8.6-10.6 9809748550) eGFR (test code = mL/min/1.73m2 7525615525) GILBERTO (test code = GILBERTO) Association of [...] tests). Lab Interpretation Abnormal (test code = 97609-7) [facility] 13:27:55 Test Item Value Reference Range Interpretation Comments MAGNESIUM (test code = 7438323627) 1.9 mg/dL 1.7-2.4 Lab Interpretation (test code = Normal 21254-1) [facility] 13:27:55 Test Item Value Reference Range Interpretation Comments PHOSPHORUS (test code = 0266029811) 3.5 mg/dL 2.5-5.0 Lab Interpretation (test code = Normal 77293-8) [facility] Hvyiupibaxgv1325-98-05 13:06:55 Test Item Value Reference Range Interpretation [...] RDW-SD (test code = 47.8 fL 38.5-51.6 75494-0) RDW-CV (test code = 14.4 % 12.1-15.4 788-0) PLT (test code = See_Comment [Automated 777-3) message] The sy stem which generated this result transmitted reference range : 150 - 328 10*3/ ?L. The reference r meredith was not used to interpret this result as normal/abnormal . MPV (test code = 9.4 fL 9.8-13.0 L 02548-6) NRBC/100 WBC (test See_Comment [Automat ed code = 5302344813) message] The system which generated this result transmitted reference range : 0.0 - 10.0 /100 WBCs. The refer ence range was not u sed to interpret th is result as normal/abnormal . NRBC x10^3 (test code <0.01 See_Comment [Auto mated = 5254863897) message] The s ystem which generated this result transmitted reference range : 10*3/?L. The reference range was not used to interpret this result as normal/abnormal . GRAN MAT (NEUT) % 54.7 % (test code = 770-8) IMM GRAN % (test code 0.40 % = 9165280123) LYMPH % (test code = 33.3 % 736-9) MONO % (test code = 9.4 % 5905-5) EOS % (test code = 1.8 % 713-8) BASO % (test code = 0.4 % 706-2) GRAN MAT x10^3(ANC) 2.78 10*3/uL 1.99-6.95 (test code = 8527743210) IMM GRAN x10^3 (test <0.03 0.00-0.06 code = 5870587073) LYMPH x10^3 (test code 1.69 10*3/uL 1.09-3.23 = 731-0) MONO x10^3 (test code 0.48 10*3/uL 0.36-1.02 = 742-7) EOS x10^3 (test code = 0.09 10*3/uL 0.06-0.53 711-2) BASO x10^3 (test code <0.03 0.01-0.09 = 704-7) Lab Interpretation Abnormal (test code = 57973-7) [facility] W/AUTO [id number] 09:48:00 Test Item Value Reference Range Interpretation [...] = MX#) 0.8 k/mm3 0.1-0.8 N GLUCOSE [id number] 06:12:00 Test Item Value Reference Range Interpretation Comments GLUCOSE BEDSIDE (test 129 MG/DL 70-110 H Perfor med by certified code = GLUBED) 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 [facility] BASIC METABOLIC [id number] 05:21:00 Test Item Value Reference Range Interpretation [...] (test code = POCGLU) 92 MG/DL GLUCOSE [id number] 05:19:00 Test Item Value Reference Range Interpretation Comments GLUCOSE BEDSIDE (test 51 MG/DL 70-110 L Perfor med by certified code = GLUBED) 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 [facility] CBC W/AUTO [id number] 14:00:00 Test Item Value Reference Range Interpretation [...] MX#) 0.2 k/mm3 0.1-0.8 N CBC W/AUTO [id number] 00:07:00 Test Item Value Reference Range Interpretation [...] = LY#) 2.4 K/uL 1.0-3.8 N LIVER [id number] 16:14:00 Test Item Value Reference Range Interpretation Comments TOTAL PROTEIN (test code 7.5 GM/DL 5.0-8.0 N Per formed by = PROT) 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 [facility] ALBUMIN (test code = [...] 65 UNITS/L 25-125 N TAWNY) BASIC METABOLIC [id number] 16:07:00 Test Item Value Reference Range Interpretation [...] POCGLU) 96 MG/DL - XR CHEST 1 [id number] 00:00:00 [facility] 1970 Sex: MFAX: Sabi Urias MD [phone] [place]: [place] St: PRE Name: DORA JOSEPH FSED : 1970 Age/S: 51/M [address] [facility] Unit #: [id number] Loc: [place] [address] Phys: Sabi Urias MD Acct: [id number] Dis Date: Status: PRE ER PHONE #: Exam Date: 06/27/2021 1738 FAX #: Reason: Abdominal Pain EXAMS: CPT CODE: [id number] XR CHEST 1 V 17449 PROCEDURE INFORMATION: Exam: XR Chest Exam date and time: 06/27/2021 3:37 PM Age: 51 years old Clinical indication: Other: Abdominal pain TECHNIQUE: Imaging protocol: XR of the chest. Views: 1 view. COMPARISON: DX XR CHEST 1V 02/23/2020 8:56 PM FINDINGS: Lungs: No pulmonary infiltrate. Pleural spaces: No pleural effusion or pneumothorax. Heart/Mediastinum:Heart size is within normal limits. Vasculature is unremarkable. Bones/joints: Unremarkable. Gastrointestinal tract: There is gaseous distention of stomach or colon elevating the left diaphragm IMPRESSION: Gaseous distention of stomach or colon elevates the left diaphragm. No acute cardiopulmonary findings otherwise.. at 1558 Reported and signed by: Андрей Mar M.D. CC: Sabi Urias MD Technologist: RT Alanna(R)(CT) Trnscrd Date/Time/By: 06/27/2021 (1558) : By: [email or web address] Orig Print D/T: S: 06/27/2021 (155) PAGE 1 Signed Report- CT ABD PELVIS [id number] 00:00:00 [facility] 1970 Sex: MName: DORA JOSEPH FSED : 1970 Age/S: 51 / M [address] [facility] Unit #: [id number] Loc: [place] [address] Phys: Sabi Urias MD Acct: [id number] Dis Date: Status: REG ER PHONE #: Exam Date: 06/27/2021 0526 FAX #: Reason: pain in region of colostomy EXAMS: CPT CODE: [id number] CT ABD PELVIS W/CONT 46575 PROCEDURE INFORMATION: Exam: CT Abdomen And Pelvis [...] ABDOMINAL ORGANS: No acute CT abnormalities of theliver, spleen, pancreas, adrenal glands or kidneys are [...] to be status post subtotal colectomy with placementof a right mid abdominal ileostomy. A parastomal fat containing hernia is present is present with ileostomy prolapse. No small bowel dilatation is present to suggest associated intestinal obstruction. The Aaron pouch has an unremarkable CT appearance. PERITONEUM: No evidence of free intraperitonealair. No significant free intraperitoneal fluid. RETROPERITONEUM: The abdominal aorta demonstrates noevidence of aneurysm or dissection. There is no evidence of retroperitoneal mass or adenopathy. PELV IS: The bladder has an unremarkable appearance. No enlarged pelvic lymph nodes are identified. LOWERCHEST: The lung bases appear clear of acute disease. ADDITIONAL FINDINGS: None. IMPRESSION: 1. 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 A peristomal fat containing hernia is present PAGE 1 Signed Report (CONTINUED) Name: DORA JOSEPH FSED : 1970 Age/S: 51 / M [address] [facility] Unit #: [id number] Loc: [place] [address] Phys: Sabi Urias MD Acct: [id number] Dis Date: Status: REG ER PHONE #: Exam Date: 06/27/2021 1625 FAX #: Reason:pain in region of colostomy EXAMS: CPT CODE: [id number] CT ABD PELVIS W/CONT 62655 <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 There is no [...] (test code = 133 mmol/L 135-145 L 4434358299) K (test code = 3.7 mmol/L 3.5-5.0 3323683746) CL (test code = 108 mmol/L 98-108 5193772706) CO2 TOTAL (test code = 20 mmol/L 23-31 L 7006124612) AGAP (test code = 2-16 5712360918) BUN (test code = 11 mg/dL 7-23 5441171887) GLUCOSE (test code = 82 mg/dL 70-110 7941413709) CREATININE (test code = 0.96 mg/dL 0.60-1.25 0100760982) CALCIUM (test code = 8.6 mg/dL 8.6-10.6 6913839568) eGFR (test code = mL/min/1.73m2 0759941986) GILBERTO (test code = GILBERTO) Association of [...] tests). Lab Interpretation Abnormal (test code = 67682-5) [facility] METABOLIC PANEL (NA, K, CL, CO2, GLUCOSE, BUN, CREATININE, CA)2021-06-02 11:45:25 Test Item Value Reference Range Interpretation Comments NA (test code = 133 mmol/L 135-145 L 5648140306) K (test code = 3.7 mmol/L 3.5-5.0 3211159211) CL (test code = 111 mmol/L 98-108 H 1544013918) CO2 TOTAL (test code = 17 mmol/L 23-31 L 5036025915) AGAP (test code = 2-16 1823766656) BUN (test code = 15 mg/dL 7-23 1425859086) GLUCOSE (test code = 88 mg/dL 70-110 1739060064) CREATININE (test code = 0.96 mg/dL 0.60-1.25 3235715145) CALCIUM (test code = 8.1 mg/dL 8.6-10.6 L 6399288785) eGFR (test code = mL/min/1.73m2 0360057927) GILBERTO (test code = GILBERTO) Association of [...] tests). Lab Interpretation Abnormal (test code = 81507-0) [facility] (NA, K, CL, CO2, GLUCOSE, BUN, CREATININE, CA)2021-06-01 17:06:47 Test Item Value Reference Range Interpretation Comments NA (test code = 131 mmol/L 135-145 L 5074927621) K (test code = 3.9 mmol/L 3.5-5.0 Slight 7819705632) hemolysis CL (test code = 108 mmol/L 98-108 4804278160) CO2 TOTAL (test code 15 mmol/L 23-31 L = 6222112028) AGAP (test code = 2-16 1926607976) BUN (test code = 26 mg/dL 7-23 H Slight 7128711755) hemolysis GLUCOSE (test code = 85 mg/dL 70-110 6584760448) CREATININE (test code 1.26 mg/dL 0.60-1.25 H = 0447493115) CALCIUM (test code = 8.1 mg/dL 8.6-10.6 L 9354047936) eGFR (test code = mL/min/1.73m2 5616609666) GILBERTO (test code = GILBERTO) Association of [...] tests). Lab Interpretation Abnormal (test code = 88597-2) [facility] Whole [id number] 05:45:35 Test Item Value Reference Range Interpretation Comments LACTIC ACID (test code = 0.67 mmol/L 0.50-2.20 9455912223) Lab Interpretation (test code = Normal 88968-9) [facility]TR[facility] [id number] 23:44:55 Test Item Value Reference Interpretation Comments Range TROPONIN I (test 0.004 ng/mL See_Comment [Automated code = 4799128209) message] The system which generated this result [...] biotin. Lab Interpretation Normal (test code = 55638-6) [facility]2021-[facility] 23:33:28 Test Item Value Reference Range Interpretation Comments LIPASE (test code = 1471989902) 386 U/L 0-220 H Lab Interpretation (test code = Abnormal 72822-1) [facility] MET[facility]OLIC PAN[facility] (21912)2021-05-31 23:33:28 Test Item Value Reference Range Interpretation Comments NA (test code = 128 mmol/L 135-145 L 9776876571) K (test code = 4.2 mmol/L 3.5-5.0 9506833803) CL (test code = 102 mmol/L 98-108 7332272161) CO2 TOTAL (test code = 13 mmol/L 23-31 L 7325321656) AGAP (test code = 2-16 2991041576) BUN (test code = 47 mg/dL 7-23 H 2550862251) GLUCOSE (test code = 106 mg/dL 70-110 2292606320) CREATININE (test code = 2.38 mg/dL 0.60-1.25 H 6557995793) TOTAL BILI (test code = 0.6 mg/dL 0.1-1.2 9190186929) CALCIUM (test code = 9.5 mg/dL 8.6-10.6 6720086548) T PROTEIN (test code = 7.3 g/dL 6.3-8.2 7209070819) ALBUMIN (test code = 4.6 g/dL 3.5-5.0 2105710169) ALK PHOS (test code = 110 U/L 34-122 4795745637) ALTv (test code = 29 U/L 5-50 1742-6) AST(SGOT) (test code = 33 U/L 13-40 8855762541) eGFR (test code = mL/min/1.73m2 1236168703) GILBERTO (test code = GILBERTO) Association of [...] tests). Lab Interpretation Abnormal (test code = 92314-9) [facility] WITH [id number] 22:57:06 Test Item Value Reference Range Interpretation [...] RDW-SD (test code = 43.2 fL 38.5-51.6 63227-4) RDW-CV (test code = 13.7 % 12.1-15.4 788-0) PLT (test code = See_Comment [Automated 777-3) message] The sy stem which generated this result transmitted reference range : 150 - 328 10*3/ ?L. The reference r meredith was not used to interpret this result as normal/abnormal . MPV (test code = 10.1 fL 9.8-13.0 50751-0) NRBC/100 WBC (test See_Comment [Automat ed code = 5978419745) message] The system which generated this result transmitted reference range : 0.0 - 10.0 /100 WBCs. The refer ence range was not u sed to interpret th is result as normal/abnormal . NRBC x10^3 (test code <0.01 See_Comment [Auto mated = 5080257913) message] The s ystem which generated this result transmitted reference range : 10*3/?L. The reference range was not used to interpret this result as normal/abnormal . GRAN MAT (NEUT) % 68.1 % (test code = 770-8) IMM GRAN % (test code 0.40 % = 3658351007) LYMPH % (test code = 21.9 % 736-9) MONO % (test code = 8.9 % 5905-5) EOS % (test code = 0.3 % 713-8) BASO % (test code = 0.4 % 706-2) GRAN MAT x10^3(ANC) 5.38 10*3/uL 1.99-6.95 (test code = 0132635630) IMM GRAN x10^3 (test 0.03 10*3/uL 0.00-0.06 code = 1353124101) LYMPH x10^3 (test code 1.73 10*3/uL 1.09-3.23 = 731-0) MONO x10^3 (test code 0.70 10*3/uL 0.36-1.02 = 742-7) EOS x10^3 (test code = <0.03 0.06-0.53 L 711-2) BASO x10^3 (test code 0.03 10*3/uL 0.01-0.09 = 704-7) Lab Interpretation Abnormal (test code = 03325-4) [facility] HospitalMAG[facility]2021-09-28 09:49:03 Test Item Value Reference Range Interpretation Comments MAGNESIUM (test code = 8603154250) 2.0 mg/dL 1.7-2.4 Lab Interpretation (test code = Normal 80880-2) [facility] HospitalPHOSPHORUS2021-09-28 09:49:03 Test Item Value Reference Range Interpretation Comments PHOSPHORUS (test code = 7772398906) 4.0 mg/dL 2.5-5.0 Lab Interpretation (test code = Normal 39446-8) [facility] Hospital[facility] Met[facility] Panel (NA, K, CL, CO2, GLUCOSE, BUN, CREATININE, CA)2021-05-21 09:49:03 Test Item Value Reference Range Interpretation Comments NA (test code = 132 mmol/L 135-145 L 1414165461) K (test code = 4.3 mmol/L 3.5-5.0 0753539207) CL (test code = 105 mmol/L 98-108 6061187505) CO2 TOTAL (test code = 21 mmol/L 23-31 L 4098667838) AGAP (test code = 2-16 6104506713) BUN (test code = 25 mg/dL 7-23 H 6968371852) GLUCOSE (test code = 98 mg/dL 70-110 1440756597) CREATININE (test code = 1.20 mg/dL 0.60-1.25 1748674154) CALCIUM (test code = 8.4 mg/dL 8.6-10.6 L 8792597902) eGFR (test code = mL/min/1.73m2 9207402771) GILBERTO (test code = GILBERTO) Association of [...] tests). Lab Interpretation Abnormal (test code = 07344-3) [facility] with Knmukgrnhbpd9018-82-07 09:22:22 Test Item Value Reference Range Interpretation Comments WBC (test code = See_Comment [Automated 1843-2) message] The sy stem which generated this result transmitted reference range : 4.20 - 10.70 10*3/?L. The reference range was not used to interpret this result as normal/abnormal . RBC (test code = See_Comment L [Automated 678-8) message] The sy stem which generated this [...] RDW-SD (test code = 45.6 fL 38.5-51.6 94673-7) RDW-CV (test code = 13.7 % 12.1-15.4 788-0) PLT (test code = See_Comment [Automated 777-3) message] The sy stem which generated this result transmitted reference range : 150 - 328 10*3/ ?L. The reference r meredith was not used to interpret this result as normal/abnormal . MPV (test code = 9.7 fL 9.8-13.0 L 63502-8) NRBC/100 WBC (test See_Comment [Automat ed code = 5489135945) message] The system which generated this result transmitted reference range : 0.0 - 10.0 /100 WBCs. The refer ence range was not u sed to interpret th is result as normal/abnormal . NRBC x10^3 (test code <0.01 See_Comment [Auto mated = 9888320305) message] The s ystem which generated this result transmitted reference range : 10*3/?L. The reference range was not used to interpret this result as normal/abnormal . GRAN MAT (NEUT) % 49.4 % (test code = 770-8) IMM GRAN % (test code 0.60 % = 7078013991) LYMPH % (test code = 35.2 % 736-9) MONO % (test code = 11.9 % 5905-5) EOS % (test code = 2.1 % 713-8) BASO % (test code = 0.8 % 706-2) GRAN MAT x10^3(ANC) 2.33 10*3/uL 1.99-6.95 (test code = 8180686735) IMM GRAN x10^3 (test 0.03 10*3/uL 0.00-0.06 code = 0150750395) LYMPH x10^3 (test code 1.66 10*3/uL 1.09-3.23 = 731-0) MONO x10^3 (test code 0.56 10*3/uL 0.36-1.02 = 742-7) EOS x10^3 (test code = 0.10 10*3/uL 0.06-0.53 711-2) BASO x10^3 (test code 0.04 10*3/uL 0.01-0.09 = 704-7) Lab Interpretation Abnormal (test code = 76400-7) [facility]2021-[facility] 20:21:19 Test Item Value Reference Range Interpretation Comments LIPASE (test code = 6424339082) 307 U/L 0-220 H Lab Interpretation (test code = Abnormal 84579-0) [facility] HospitalCOMP[facility] METABOLIC PANEL (04482)2021-05-20 20:21:19 Test Item Value Reference Range Interpretation Comments NA (test code = 132 mmol/L 135-145 L 5152353984) K (test code = 4.3 mmol/L 3.5-5.0 9354595284) CL (test code = 100 mmol/L 98-108 8159572009) CO2 TOTAL (test code = 18 mmol/L 23-31 L 9846780931) AGAP (test code = 2-16 0677205304) BUN (test code = 32 mg/dL 7-23 H 7693255608) GLUCOSE (test code = 100 mg/dL 70-110 3504761459) CREATININE (test code = 1.76 mg/dL 0.60-1.25 H 5230355572) TOTAL BILI (test code = 0.7 mg/dL 0.1-1.1 4395507220) CALCIUM (test code = 9.6 mg/dL 8.6-10.6 0823984298) T PROTEIN (test code = 7.5 g/dL 6.3-8.2 3101252512) ALBUMIN (test code = 4.7 g/dL 3.5-5.0 6412163025) ALK PHOS (test code = 104 U/L 34-122 1300635543) ALTv (test code = 23 U/L 5-50 1742-6) AST(SGOT) (test code = 29 U/L 13-40 2269200036) eGFR (test code = mL/min/1.73m2 4062029694) GILBERTO (test code = GILBERTO) Association of [...] tests). Lab Interpretation Abnormal (test code = 00082-5) [facility] WITH [id number] 20:15:39 Test Item Value Reference Range Interpretation Comments WBC (test code = See_Comment [Automated message] 6690-2) The system [employer] generated this result transmitted ref erence range: 4.20 - 1 0.70 10*3/?L. The re ference range was not u sed to interpret this result as normal/abnor mal. RBC (test code = See_Comment [Automated message] 469-8) The system [employer] generated this result transmitted ref erence range: [...] RDW-SD (test code 44.8 fL 38.5-51.6 = 45824-5) RDW-CV (test code 13.7 % 12.1-15.4 = 788-0) PLT (test code = See_Comment [Automated message] 777-3) The system [employer] generated this result transmitted ref erence range: 150 - 32 8 10*3/?L. The re ference range was not u sed to interpret this result as normal/abnor mal. MPV (test code = 9.8 fL 9.8-13.0 56161-6) NRBC/100 WBC (test See_Comment [Automat ed message] code = 5303247474) The syste m which generated this result transmitted ref erence range: 0.0 - 10 .0 /100 WBCs. The refer ence range was not u sed to interpret this result as normal/abnor mal. NRBC x10^3 (test <0.01 See_Comment [Automated message] code = 0599105629) The syste m which generated this result transmitted ref erence range: 10*3/?L. The reference range was not used to interpr et this result as normal/abnormal . GRAN MAT (NEUT) % 55.9 % (test code = 770-8) IMM GRAN % (test 0.40 % code = 5923038044) LYMPH % (test code 32.5 % = 736-9) MONO % (test code 9.4 % = 5905-5) EOS % (test code = 1.2 % 713-8) BASO % (test code 0.6 % = 706-2) GRAN MAT 3.87 10*3/uL 1.99-6.95 x10^3(ANC) (test code = 7619492887) IMM GRAN x10^3 0.03 10*3/uL 0.00-0.06 (test code = 0509705446) LYMPH x10^3 (test 2.25 10*3/uL 1.09-3.23 code = 731-0) MONO x10^3 (test 0.65 10*3/uL 0.36-1.02 code = 742-7) EOS x10^3 (test 0.08 10*3/uL 0.06-0.53 code = 711-2) BASO x10^3 (test 0.04 10*3/uL 0.01-0.09 code = 704-7) [facility] Whole Wcfxi7865-96-28 20:07:57 Test Item Value Reference Range Interpretation Comments LACTIC ACID (test code = 1.81 mmol/L 0.50-2.20 9984137446) Lab Interpretation (test code = Normal 22708-5) [facility] Met[facility] (NA, K, CL, CO2, GLUCOSE, BUN, CREATININE, CA)2021-05-08 10:32:35 Test Item Value Reference Range Interpretation Comments NA (test code = 135 mmol/L 135-145 4363026729) K (test code = 4.2 mmol/L 3.5-5.0 9321244093) CL (test code = 106 mmol/L 98-108 1033913879) CO2 TOTAL (test code 23 mmol/L 23-31 = 0048232971) AGAP (test code = 2-16 6436507960) BUN (test code = 22 mg/dL 7-23 7492584572) GLUCOSE (test code = 87 mg/dL 70-110 8126451006) CREATININE (test code 1.21 mg/dL 0.60-1.25 = 0471141086) CALCIUM (test code = 8.7 mg/dL 8.6-10.6 7423155514) eGFR (test code = mL/min/1.73m2 0757916665) GILBERTO (test code = GILBERTO) Association of [...] or urine or abnormalities in imaging tests). [facility] Metabolic Panel (NA, K, CL, CO2, GLUCOSE, BUN, CREATININE, CA)2021-05-08 10:32:35 Test Item Value Reference Range Interpretation Comments NA (test code = 135 mmol/L 135-145 9643937041) K (test code = 4.2 mmol/L 3.5-5.0 0920085064) CL (test code = 106 mmol/L 98-108 5492752873) CO2 TOTAL (test code 23 mmol/L 23-31 = 0193809224) AGAP (test code = 2-16 0002986509) BUN (test code = 22 mg/dL 7-23 2090993555) GLUCOSE (test code = 87 mg/dL 70-110 0369218466) CREATININE (test code 1.21 mg/dL 0.60-1.25 = 2598202081) CALCIUM (test code = 8.7 mg/dL 8.6-10.6 2069036684) eGFR (test code = mL/min/1.73m2 0076185721) GILBERTO (test code = GILBERTO) Association of [...] or urine or abnormalities in imaging tests). [facility] with Firnaqfnzqxa4367-97-24 10:12:52 Test Item Value Reference Range Interpretation Comments WBC (test code = See_Comment [Automated 3494-2) message] The sy stem which generated this [...] RDW-SD (test code = 48.4 fL 38.5-51.6 08716-9) RDW-CV (test code = 14.0 % 12.1-15.4 788-0) PLT (test code = See_Comment [Automated 777-3) message] The sy stem which generated this result transmitted reference range : 150 - 328 10*3/ ?L. The reference r meredith was not used to interpret this result as normal/abnormal . MPV (test code = 9.6 fL 9.8-13.0 L 38877-3) NRBC/100 WBC (test See_Comment [Automat ed code = 2047043250) message] The system which generated this result transmitted reference range : 0.0 - 10.0 /100 WBCs. The refer ence range was not u sed to interpret th is result as normal/abnormal . NRBC x10^3 (test code <0.01 See_Comment [Auto mated = 3840195401) message] The s ystem which generated this result transmitted reference range : 10*3/?L. The reference range was not used to interpret this result as normal/abnormal . GRAN MAT (NEUT) % 55.6 % (test code = 770-8) IMM GRAN % (test code 0.20 % = 2498814394) LYMPH % (test code = 31.5 % 736-9) MONO % (test code = 9.9 % 5905-5) EOS % (test code = 2.0 % 713-8) BASO % (test code = 0.8 % 706-2) GRAN MAT x10^3(ANC) 2.76 10*3/uL 1.99-6.95 (test code = 8450588274) IMM GRAN x10^3 (test <0.03 0.00-0.06 code = 0995905749) LYMPH x10^3 (test code 1.56 10*3/uL 1.09-3.23 = 731-0) MONO x10^3 (test code 0.49 10*3/uL 0.36-1.02 = 742-7) EOS x10^3 (test code = 0.10 10*3/uL 0.06-0.53 711-2) BASO x10^3 (test code 0.04 10*3/uL 0.01-0.09 = 704-7) Lab Interpretation Abnormal (test code = 35519-4) [facility] with Awpvydwemsfc4883-61-28 10:12:52 Test Item Value Reference Range Interpretation [...] RDW-SD (test code = 48.4 fL 38.5-51.6 73939-5) RDW-CV (test code = 14.0 % 12.1-15.4 788-0) PLT (test code = See_Comment [Automated 777-3) message] The sy stem which generated this result transmitted reference range : 150 - 328 10*3/ ?L. The reference r meredith was not used to interpret this result as normal/abnormal . MPV (test code = 9.6 fL 9.8-13.0 L 44325-9) NRBC/100 WBC (test See_Comment [Automat ed code = 7298872887) message] The system which generated this result transmitted reference range : 0.0 - 10.0 /100 WBCs. The refer ence range was not u sed to interpret th is result as normal/abnormal . NRBC x10^3 (test code <0.01 See_Comment [Auto mated = 8588631653) message] The s ystem which generated this result transmitted reference range : 10*3/?L. The reference range was not used to interpret this result as normal/abnormal . GRAN MAT (NEUT) % 55.6 % (test code = 770-8) IMM GRAN % (test code 0.20 % = 1552112461) LYMPH % (test code = 31.5 % 736-9) MONO % (test code = 9.9 % 5905-5) EOS % (test code = 2.0 % 713-8) BASO % (test code = 0.8 % 706-2) GRAN MAT x10^3(ANC) 2.76 10*3/uL 1.99-6.95 (test code = 5360263006) IMM GRAN x10^3 (test <0.03 0.00-0.06 code = 1331040103) LYMPH x10^3 (test code 1.56 10*3/uL 1.09-3.23 = 731-0) MONO x10^3 (test code 0.49 10*3/uL 0.36-1.02 = 742-7) EOS x10^3 (test code = 0.10 10*3/uL 0.06-0.53 711-2) BASO x10^3 (test code 0.04 10*3/uL 0.01-0.09 = 704-7) Lab Interpretation Abnormal (test code = 33548-9) [facility] METABOLIC PANEL (NA, K, CL, CO2, GLUCOSE, BUN, CREATININE, CA)2021-05-08 01:11:57 Test Item Value Reference Range Interpretation Comments NA (test code = 134 mmol/L 135-145 L 2186185825) K (test code = 4.7 mmol/L 3.5-5.0 4275801921) CL (test code = 100 mmol/L 98-108 7151237147) CO2 TOTAL (test code = 24 mmol/L 23-31 5569802020) AGAP (test code = 2-16 2549562439) BUN (test code = 27 mg/dL 7-23 H 9524590793) GLUCOSE (test code = 94 mg/dL 70-110 8526954193) CREATININE (test code = 1.31 mg/dL 0.60-1.25 H 7825936821) CALCIUM (test code = 9.5 mg/dL 8.6-10.6 6262796846) eGFR (test code = mL/min/1.73m2 8597708309) GILBERTO (test code = GILBERTO) Association of [...] tests). Lab Interpretation Abnormal (test code = 02636-8) [facility] (ALB,T.PRO,BILI T,BU/BC,ALT,AST,ALK PHOS)2021-05-08 01:11:57 Test Item Value Reference Range Interpretation Comments TOTAL BILI (test code = 0345231344) 0.8 mg/dL 0.1-1.1 BILI UNCON (test code = 8733994054) 0.2 mg/dL 0.1-1.1 BILI CONJ (test code = 8393888142) 0.0 mg/dL 0.0-0.3 T PROTEIN (test code = 7780983555) 7.1 g/dL 6.3-8.2 ALBUMIN (test code = 7019635464) 4.4 g/dL 3.5-5.0 ALK PHOS (test code = 7888912479) 88 U/L 34-122 ALTv (test code = 1742-6) 40 U/L 5-50 AST(SGOT) (test code = 0373937677) 38 U/L 13-40 Lab Interpretation (test code = Normal 53824-6) [place] [facility] [facility] METABOLIC PANEL (NA, K, CL, CO2, GLUCOSE, BUN, CREATININE, CA)2021-05-08 01:11:57 Test Item Value Reference Range Interpretation Comments NA (test code = 134 mmol/L 135-145 L 8968516525) K (test code = 4.7 mmol/L 3.5-5.0 9590947645) CL (test code = 100 mmol/L 98-108 2903761723) CO2 TOTAL (test code = 24 mmol/L 23-31 1208725543) AGAP (test code = 2-16 4808287258) BUN (test code = 27 mg/dL 7-23 H 0130111312) GLUCOSE (test code = 94 mg/dL 70-110 1442339856) CREATININE (test code = 1.31 mg/dL 0.60-1.25 H 4356471485) CALCIUM (test code = 9.5 mg/dL 8.6-10.6 1073809235) eGFR (test code = mL/min/1.73m2 5040613123) GILBERTO (test code = GILBERTO) Association of [...] tests). Lab Interpretation Abnormal (test code = 30662-6) [facility]52587[facility] (ALB,T.PRO,BILI T,BU/BC,ALT,AST,ALK PHOS)2021-05-08 01:11:57 Test Item Value Reference Range Interpretation Comments TOTAL BILI (test code = 5102081884) 0.8 mg/dL 0.1-1.1 BILI UNCON (test code = 9921182465) 0.2 mg/dL 0.1-1.1 BILI CONJ (test code = 7399394212) 0.0 mg/dL 0.0-0.3 T PROTEIN (test code = 8949485799) 7.1 g/dL 6.3-8.2 ALBUMIN (test code = 3778527233) 4.4 g/dL 3.5-5.0 ALK PHOS (test code = 1935293627) 88 U/L 34-122 ALTv (test code = 1742-6) 40 U/L 5-50 AST(SGOT) (test code = 1182127030) 38 U/L 13-40 Lab Interpretation (test code = Normal 63130-1) [facility] WITH [id number] 00:59:56 Test Item Value Reference Range Interpretation [...] RDW-SD (test code = 46.9 fL 38.5-51.6 66923-6) RDW-CV (test code = 13.9 % 12.1-15.4 788-0) PLT (test code = See_Comment [Automated 777-3) message] The sy stem which generated this result transmitted reference range : 150 - 328 10*3/ ?L. The reference r meredith was not used to interpret this result as normal/abnormal . MPV (test code = 10.0 fL 9.8-13.0 17023-0) NRBC/100 WBC (test See_Comment [Automat ed code = 0422405055) message] The system which generated this result transmitted reference range : 0.0 - 10.0 /100 WBCs. The refer ence range was not u sed to interpret th is result as normal/abnormal . NRBC x10^3 (test code <0.01 See_Comment [Auto mated = 2969524616) message] The s ystem which generated this result transmitted reference range : 10*3/?L. The reference range was not used to interpret this result as normal/abnormal . GRAN MAT (NEUT) % 53.9 % (test code = 770-8) IMM GRAN % (test code 0.30 % = 0291456853) LYMPH % (test code = 32.0 % 736-9) MONO % (test code = 11.6 % 5905-5) EOS % (test code = 1.6 % 713-8) BASO % (test code = 0.6 % 706-2) GRAN MAT x10^3(ANC) 3.67 10*3/uL 1.99-6.95 (test code = 3076327603) IMM GRAN x10^3 (test <0.03 0.00-0.06 code = 0003397121) LYMPH x10^3 (test code 2.18 10*3/uL 1.09-3.23 = 731-0) MONO x10^3 (test code 0.79 10*3/uL 0.36-1.02 = 742-7) EOS x10^3 (test code = 0.11 10*3/uL 0.06-0.53 711-2) BASO x10^3 (test code 0.04 10*3/uL 0.01-0.09 = 704-7) Lab Interpretation Abnormal (test code = 33156-3) [facility] WITH [id number] 00:59:56 Test Item Value Reference Range Interpretation Comments WBC (test code = See_Comment [Automated 3165-2) message] The sy stem which generated this result transmitted reference range : 4.20 - 10.70 10*3/?L. The reference range was not used to interpret this result as normal/abnormal . RBC (test code = See_Comment L [Automated 542-8) message] The sy stem which generated this [...] RDW-SD (test code = 46.9 fL 38.5-51.6 33948-2) RDW-CV (test code = 13.9 % 12.1-15.4 788-0) PLT (test code = See_Comment [Automated 777-3) message] The sy stem which generated this result transmitted reference range : 150 - 328 10*3/ ?L. The reference r meredith was not used to interpret this result as normal/abnormal . MPV (test code = 10.0 fL 9.8-13.0 95904-6) NRBC/100 WBC (test See_Comment [Automat ed code = 4841839603) message] The system which generated this result transmitted reference range : 0.0 - 10.0 /100 WBCs. The refer ence range was not u sed to interpret th is result as normal/abnormal . NRBC x10^3 (test code <0.01 See_Comment [Auto mated = 1670091617) message] The s ystem which generated this result transmitted reference range : 10*3/?L. The reference range was not used to interpret this result as normal/abnormal . GRAN MAT (NEUT) % 53.9 % (test code = 770-8) IMM GRAN % (test code 0.30 % = 8490030071) LYMPH % (test code = 32.0 % 736-9) MONO % (test code = 11.6 % 5905-5) EOS % (test code = 1.6 % 713-8) BASO % (test code = 0.6 % 706-2) GRAN MAT x10^3(ANC) 3.67 10*3/uL 1.99-6.95 (test code = 9681535785) IMM GRAN x10^3 (test <0.03 0.00-0.06 code = 6255660011) LYMPH x10^3 (test code 2.18 10*3/uL 1.09-3.23 = 731-0) MONO x10^3 (test code 0.79 10*3/uL 0.36-1.02 = 742-7) EOS x10^3 (test code = 0.11 10*3/uL 0.06-0.53 711-2) BASO x10^3 (test code 0.04 10*3/uL 0.01-0.09 = 704-7) Lab Interpretation Abnormal (test code = 36453-7) [facility] W/AUTO [id number] 09:20:00 Test Item Value Reference Range Interpretation [...] (test code NO = MDIFF) CBC W/AUTO [id number] 08:59:00 Test Item Value Reference Range Interpretation [...] REQUIRED (test code = MDIFF) BASIC METABOLIC [id number] 08:21:00 Test Item Value Reference Range Interpretation [...] 8.4 mg/dL 8.0-10.5 N CA) BASIC METABOLIC [id number] 08:34:00 Test Item Value Reference Range Interpretation [...] 8.4 mg/dL 8.0-10.5 N CA) CBC W/AUTO [id number] 07:41:00 Test Item Value Reference Range Interpretation [...] = MDIFF) UA RFLX MICR CULT IF [id number] 10:10:00 Test Item Value Reference Range Interpretation [...] Pain Temperature > 100.4 FSpecimen Description: [facility] [id number] 04:13:00 Test Item Value Reference Range Interpretation [...] mg/dL 8.0-10.5 N CA) Coronavirus 2019 nCoV [id number] 22:03:00 Test Item Value Reference Range Interpretation Comments Coronavirus 2019 Negative Negative Performed b y certified nCoV Bedside (technician test systems at [place] [facility] code = CtrNegative res ults should [id number]) be treated as presumptive and, ifinconsis tent with clinical signs and symptoms or necessaryfor patient management, fifi uld be tested with an alternativemole cular assay. Negative result s do not preclude ANVF-BuO-6msqrl tion and should not be u sed as the sole basis forp atient management deci sions. Negative result s should beconsidered in the context of a patient's recent exposures,histo ry, presence of clinical sig ns and symptoms consis tentwith COVID-19. CBC W/AUTO [id number] 21:11:00 Test Item Value Reference Range Interpretation [...] MX#) 0.6 k/mm3 0.1-0.8 N BASIC METABOLIC [id number] 19:00:00 Test Item Value Reference Range Interpretation [...] POCGLU) 92 MG/DL - CT ABD PELVIS W/[id number] 00:00:00 [facility] 1970 Sex: M Name: DORA JOSEPH Castro FSED : 1970 Age/S: 51 / M [address] [facility] Unit #: [id number] Loc: [place] Erazo [address] Phys: Marcello Benoit MD Acct: [id number] Dis Date: Status: KISHOR ZIEGLER #: Exam Date: 04/28/20211913 FAX #: Reason: epigastric and LLQ pain, R-sided colostomy EXAMS:CPT CODE: [id number] CT ABD PELVIS W/CONT 26829 PROCEDURE INFORMATION: Exam: CT Abdomen And Pelvis [...] exams where dose is matched to clinical indication);or iterative reconstruction. Contrast material: ISOVUE 300; Contrast volume: 100 ml; Contrast route:INTRAVENOUS (IV); Other technique: CT radiation dose DLP (MGY-CM) : 838.32 COMPARISON: CT ABD PELVIS W/CONT 02/23/2020 8:43 PM FINDINGS: Lungs: Mild compressive atelectasis left base. Additional bandlikeopacities in the lower lung zones compatible with subsegmental atelectasis or scarring. There is no consolidation. Diaphragm: Stable elevation left hemidiaphragm. 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 The remaining right lobe of liver is unremarkable. The portal venous system is patent. Gallbladderand bile ducts: The gallbladder is contracted, otherwise [...] FSED : 1970 Age/S: 51/ M [address] [facility] Unit #: [id number] Loc: Eliseo Erazo [address] Phys: Marcello Benoit MD Acct:[id number] Dis Date: Status: REG ER PHONE #: Exam Date: 04/28/2021 1914 FAX #: Reason: epigastric and LLQ pain, R-sided colostomy EXAMS: CPT CODE: [id number] CT ABD PELVIS W/CONT 83626 <Continued> Reproductive: Unremarkable as visualized. Bones/joints: Unremarkable. No acute fracture. Soft tissues: Unremarkable. IMPRESSION: 1. 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 2. Mild long segment bowel wall thickening/mucosal prominence compatible with an enteritis. No evidence for obstruction. 1955 Reported and signed by: Hector Nichols M.D. CC: Marcello Benoit MD Technologist:Stephanie Albrecht, RT(R)(CT) CTDI: DLP: Trnscb Date/Time: 04/28/2021 (1955) [place] Orig Print D/T: S: 04/28/2021 (1955) PAGE 2 Signed ReportBasic Metabolic Panel (NA, K, CL, CO2, GLUCOSE, BUN, CREATININE, CA)2020-08-23 10:29:00 Test Item Value Reference Range Interpretation Comments NA (test code = 139 mmol/L 135-145 1800617422) K (test code = 4.0 mmol/L 3.5-5 0974369688) CL (test code = 108 mmol/L 98-108 7557649072) CO2 TOTAL (test code = 22 mmol/L 23-31 L 9256713181) AGAP (test code = 2-16 6082522026) BUN (test code = 25 mg/dL 7-23 H 1727511351) GLUCOSE (test code = 91 mg/dL 70-110 0574528590) CREATININE (test code = 1.14 mg/dL 0.6-1.25 0317246190) CALCIUM (test code = 8.9 mg/dL 8.6-10.6 7895089023) eGFR Calculation mL/min/1.73m2 (Non-) (test code = 8277873472) eGFR Calculation mL/min/1.73m2 () (test code = 1594264569) GILBERTO (test code = GILBERTO) Association of [...] tests). Lab Interpretation Abnormal (test code = 84692-1) [facility]PRO[facility] / [id number] 10:13:00 Test Item Value Reference Range Interpretation Comments WBC (test code = 6690-2) See_Comment [A utomated message] The system [employer] generated this result transmit dain reference range : 4.20 - 10.70 10*3/?L. The reference range was not used to interpret this result as normal/abnormal . RBC (test code = 789-8) See_Comment L [Au tomated message] The system [employer] generated this result transmit dain reference range [...] 777-3) See_Comment [Au tomated message] The system [facility] generated this result transmit dain reference range : 150 - 328 10*3/?L. The reference range was not used to interpret this result as normal/abnormal . MPV (test code = 9.0 fL 9.8-13 L 53918-4) RDW-CV (test code = 18.7 % 12.1-15.4 H 788-0) RDW-SD (test code = 59.7 fL 38.5-51.6 H 68688-1) NRBC x10^3 (test code = <0.01 See_Comment [Au tomated message] 5394163487) The system [employer] generated this result transmit dain reference range : 10*3/?L. The reference range was not used to interpret this result as normal/abnormal . NRBC/100 WBC (test code See_Comment [Au tomated message] = 0633914618) The system [facility] generated this result transmit dain reference range : 0.0 - 10.0 /100 WBC s. The reference r meredith was not used to interpret this result as normal/abnormal . IPF % (test code = 7322795138) Lab Interpretation (test Abnormal code = 72301-5) [facility] HospitalCOVID-19 (ID NOW RAPID TESTING)2020-08-23 00:56:00 Test Item Value Reference Range Interpretation Comments SARS-CoV-2 Rapid ID NOW Not Detected Not Detected (test code = 19449-1) GILBERTO (test code = GILBERTO) ID NOW COVID-19 Assay is an isothermal nucleic acid amplification test intended for the qualitative detection of nucleic acid from SARS-CoV-2 viral RNA in nasopharyngeal (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) specimens. It is used under Emergency Use [...] indicated. Lab Interpretation Normal (test code = 30351-4) [facility] Metabolic Panel (NA, K, CL, CO2, GLUCOSE, BUN, CREATININE, CA)2020-08-22 22:36:00 Test Item Value Reference Range Interpretation Comments NA (test code = 133 mmol/L 135-145 L 8824630315) K (test code = 4.5 mmol/L 3.5-5 0829802213) CL (test code = 104 mmol/L 98-108 2312777658) CO2 TOTAL (test code = 25 mmol/L 23-31 9297493388) AGAP (test code = 2-16 1193892988) BUN (test code = 27 mg/dL 7-23 H 4332828974) GLUCOSE (test code = 94 mg/dL 70-110 2229947553) CREATININE (test code = 1.33 mg/dL 0.6-1.25 H 7802535870) CALCIUM (test code = 9.5 mg/dL 8.6-10.6 5997048593) eGFR Calculation mL/min/1.73m2 (Non-) (test code = 0150692976) eGFR Calculation mL/min/1.73m2 () (test code = 4015990667) GILBERTO (test code = GILBERTO) Association of [...] tests). Lab Interpretation Abnormal (test code = 32087-1) [facility] HospitalHep[facility] Function Panel (ALB, T.PRO, BILI T, BU/BC, ALT, AST, ALK PHOS)2020-08-22 22:36:00 Test Item Value Reference Range Interpretation Comments TOTAL BILI (test code = 1986562661) 0.4 mg/dL 0.1-1.1 BILI UNCON (test code = 3469755612) 0.1 mg/dL 0.1-1.1 BILI CONJ (test code = 1499318293) 0.0 mg/dL 0-0.3 T PROTEIN (test code = 2639348799) 6.8 g/dL 6.3-8.2 ALBUMIN (test code = 5592490557) 4.0 g/dL 3.5-5 ALK PHOS (test code = 3755696407) 78 U/L 34-122 ALTv (test code = 1742-6) 35 U/L 5-50 AST(SGOT) (test code = 9115956587) 29 U/L 13-40 Lab Interpretation (test code = Normal 56914-9) [facility] with Ountwehqelfo0101-10-33 22:15:00 Test Item Value Reference Range Interpretation [...] (test code = 60.6 fL 38.5-51.6 H 68151-9) RDW-CV (test code = 19.0 % 12.1-15.4 H 788-0) PLT (test code = See_Comment [Automated 777-3) message] The sy stem which generated this result transmitted reference range : 150 - 328 10*3/ ?L. The reference r meredith was not used to interpret this result as normal/abnormal . MPV (test code = 9.3 fL 9.8-13 L 92953-0) NRBC/100 WBC (test See_Comment [Automat ed code = 1267800950) message] The system which generated this result transmitted reference range : 0.0 - 10.0 /100 WBCs. The refer ence range was not u sed to interpret th is result as normal/abnormal . NRBC x10^3 (test code <0.01 See_Comment [Auto mated = 0491575954) message] The s ystem which generated this result transmitted reference range : 10*3/?L. The reference range was not used to interpret this result as normal/abnormal . GRAN MAT (NEUT) % 58.6 % (test code = 770-8) IMM GRAN % (test code 0.60 % = 9788357682) LYMPH % (test code = 28.2 % 736-9) MONO % (test code = 9.5 % 5905-5) EOS % (test code = 2.4 % 713-8) BASO % (test code = 0.7 % 706-2) GRAN MAT x10^3(ANC) 3.14 10*3/uL 1.99-6.95 (test code = 8455078802) IMM GRAN x10^3 (test 0.03 10*3/uL 0-0.06 code = 0664065807) LYMPH x10^3 (test code 1.51 10*3/uL 1.09-3.23 = 731-0) MONO x10^3 (test code 0.51 10*3/uL 0.36-1.02 = 742-7) EOS x10^3 (test code = 0.13 10*3/uL 0.06-0.53 711-2) BASO x10^3 (test code 0.04 10*3/uL 0.01-0.09 = 704-7) Lab Interpretation Abnormal (test code = 79585-4) [facility] HospitalCT SOFT TISSUE NECK W [id number] 00:47:10Impression: 1. Patent aerodigestive tract.2. No discrete fluid collection or abscess is identified.RL: 2824 End of Report Exam: CT Neck With Contrast, 07/09/2020 5:30 PM. Ordering Physician: JUAN M AGUILLON. History: Sore throat, diffic ulty swallowing. Technique: CT neck was obtained with intravenous contrast. ?CT wasperformed according to ALARA (As Low As Reasonably Achievable). Comparison: None. Findings: Aerodigestive tract is patent. Oral and nasal cavity structures are withinnormal limits. Nasopharynx is normal. Oropharynx is normal. Hypopharynx isnormal. Parapharyngeal spaces are normal. Retropharyngeal space is normal.Larynxis normal. No abnormally enlarged lymph nodes are seen. No discrete fluid collectionor abscess is identified. Major blood vessels of the neck, including thecarotid arteries and jugular veins, are patent. Parotid and submandibular glands are normal. Thyroid gland is unremarkable. Corporate Learning Consultant spaces are normal. Buccal spaces are [...] Physician: JUAN M AGUILLON.History: Sore throat, difficulty swallowing.Technique:CT neck was obtained with intravenous contrast. CT [...] submandibular glands are normal. Thyroid gland is unremarkable.Corporate Learning Consultant spaces are normal. Buccal spaces are normal. Visualizedparanasal sinuses are clear. There is no significant mastoid air cellopacification. Visualized intracranial contents are unremarkable.Visualized esophagus, trachea, and superior mediastinum are within normallimits. Visualized lungs are clear. There are degenerative changes of the spine. 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 Patent aerodigestive tract.2. No discrete fluid collection or abscess is identified.RL: 2824End of Report [facility] ([facility] NOW RAPID TESTING)2020-07-09 23:23:00 Test Item Value Reference Range Interpretation Comments SARS-CoV-2 Rapid ID NOW Not Detected Not Detected (test code = 92698-6) GILBERTO (test code = GILBERTO) ID NOW COVID-19 Assay is an isothermal nucleic acid amplification test intended for the qualitative detection of nucleic acid from SARS-CoV-2 viral RNA in nasopharyngeal (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) specimens. It is used under Emergency Use [...] indicated. Lab Interpretation Normal (test code = 83796-3) [facility] HospitalUrinalysis2020-11-16 23:21:00 Test Item Value Reference Range Interpretation Comments APPEARANCE (test code = Clear Clear 4278113417) COLOR (test code = Yellow Yellow 0592525502) PH (test code = 4.8-8.0 5030945347) SP GRAVITY (test code = 1.003-1.030 6046174723) GLU U QUAL (test code = Normal Normal 7131542054) BLOOD (test code = Negative Negative 5459496789) KETONES (test code = Negative Negative 4124836151) PROTEIN (test code = 30 mg/dL Negative A 2887-8) UROBILIN (test code = Normal Normal 6098068106) BILIRUBIN (test code = Negative Negative 7317044527) NITRITE (test code = Negative Negative 0324795122) LEUK ROGER (test code = Negative Negative 2937490388) RBC/HPF (test code = <1 See_Comment [Autom ated message] 2517039951) The system [employer] generated this result transmitted ref erence range: 0 - 3 HP F. The reference range was not used to int erpret this result as normal/abnormal . WBC/HPF (test code = See_Comment [Autom ated message] 1438650319) The system [employer] generated this result transmitted ref erence range: 0 - 5 HP F. The reference range was not used to int erpret this result as normal/abnormal . BACTERIA (test code = Negative Negative 8104221937) MUCOUS (test code = Moderate Negative LPF A 2132830585) HYAL CAST (test code = See_Comment H [Aut omated message] 0600391349) The system [employer] generated this result transmitted ref erence range: <=2 LPF. The reference range was not used to int erpret this result as normal/abnormal . Lab Interpretation (test Abnormal code = 06035-9) [facility] Metabolic Panel (NA, K, CL, CO2, GLUCOSE, BUN, CREATININE, CA)2020-07-09 23:20:00 Test Item Value Reference Range Interpretation Comments NA (test code = 135 mmol/L 135-145 6711557616) K (test code = 3.9 mmol/L 3.5-5 1757808515) CL (test code = 107 mmol/L 98-108 2218806050) CO2 TOTAL (test code = 20 mmol/L 23-31 L 1073349927) AGAP (test code = 2-16 8447014173) BUN (test code = 27 mg/dL 7-23 H 4948029445) GLUCOSE (test code = 86 mg/dL 70-110 2423093528) CREATININE (test code = 1.11 mg/dL 0.6-1.25 2490587847) CALCIUM (test code = 9.0 mg/dL 8.6-10.6 7506132817) eGFR Calculation mL/min/1.73m2 (Non-) (test code = 3614036082) eGFR Calculation mL/min/1.73m2 () (test code = 5621250367) GILBERTO (test code = GILBERTO) Association of [...] tests). Lab Interpretation Abnormal (test code = 25157-5) [facility] HospitalRAPID STREP SCREEN FOR GROUP [id number] 23:11:00 Test Item Value Reference Range Interpretation Comments Streptococcus pyogenes (group A) Negative Negative antigen (test code = 27260-9) Lab Interpretation (test code = Normal 12264-7) [facility] with Vblbdcivdkld0878-89-79 23:02:00 Test Item Value Reference Range Interpretation [...] (test code = 55.5 fL 38.5-51.6 H 64134-5) RDW-CV (test code = 18.9 % 12.1-15.4 H 788-0) PLT (test code = See_Comment [Automated 777-3) message] The sy stem which generated this result transmitted reference range : 150 - 328 10*3/ ?L. The reference r meredith was not used to interpret this result as normal/abnormal . MPV (test code = 8.9 fL 9.8-13 L 71747-0) NRBC/100 WBC (test See_Comment [Automat ed code = 6696293186) message] The system which generated this result transmitted reference range : 0.0 - 10.0 /100 WBCs. The refer ence range was not u sed to interpret th is result as normal/abnormal . NRBC x10^3 (test code <0.01 See_Comment [Auto mated = 8789348821) message] The s ystem which generated this result transmitted reference range : 10*3/?L. The reference range was not used to interpret this result as normal/abnormal . GRAN MAT (NEUT) % 59.4 % (test code = 770-8) IMM GRAN % (test code 0.20 % = 6707382159) LYMPH % (test code = 29.9 % 736-9) MONO % (test code = 9.0 % 5905-5) EOS % (test code = 1.2 % 713-8) BASO % (test code = 0.3 % 706-2) GRAN MAT x10^3(ANC) 3.56 10*3/uL 1.99-6.95 (test code = 4618621864) IMM GRAN x10^3 (test <0.03 0-0.06 code = 6375103730) LYMPH x10^3 (test code 1.79 10*3/uL 1.09-3.23 = 731-0) MONO x10^3 (test code 0.54 10*3/uL 0.36-1.02 = 742-7) EOS x10^3 (test code = 0.07 10*3/uL 0.06-0.53 711-2) BASO x10^3 (test code <0.03 0.01-0.09 = 704-7) Lab Interpretation Abnormal (test code = 02498-8) [facility] HospitalUrinalysis2020-10-13 13:37:00 Test Item Value Reference Range Interpretation Comments APPEARANCE (test code = Hazy Clear A 2983743418) COLOR (test code = Yellow Yellow 2467057347) PH (test code = 4.8-8.0 8712597593) SP GRAVITY (test code = 1.003-1.030 H 8183906151) GLU U QUAL (test code = Normal Normal 4301775992) BLOOD (test code = Negative Negative 7652644376) KETONES (test code = Negative Negative 2374142521) PROTEIN (test code = Negative Negative 2887-8) UROBILIN (test code = Normal Normal 9482694729) BILIRUBIN (test code = Negative Negative 1004296782) NITRITE (test code = Negative Negative 9661119635) LEUK ROGER (test code = Negative Negative 0000645294) RBC/HPF (test code = See_Comment H [Autom ated message] 7778471891) The system [employer] generated this result transmitted ref erence range: 0 - 3 HP F. The reference range was not used to int erpret this result as normal/abnormal . WBC/HPF (test code = See_Comment [Autom ated message] 1670715514) The system [employer] generated this result transmitted ref erence range: 0 - 5 HP F. The reference range was not used to int erpret this result as normal/abnormal . BACTERIA (test code = Negative Negative 7978558301) MUCOUS (test code = Moderate Negative LPF A 7710439846) CA OXALATE (test code = See_Comment [Au tomated message] 0630783277) The system [employer] generated this result transmitted ref erence range: <=1 HPF. The reference range was not used to int erpret this result as normal/abnormal . SPERM (test code = See_Comment H [Automat ed message] 9880003846) The system [employer] generated this result transmitted ref erence range: <=1 HPF. The reference range was not used to int erpret this result as normal/abnormal . HYAL CAST (test code = See_Comment H [Aut omated message] 0964914955) The system [employer] generated this result transmitted ref erence range: <=2 LPF. The reference range was not used to int erpret this result as normal/abnormal . Lab Interpretation (test Abnormal code = 57571-7) [facility] HospitalCT ABDOMEN PELVIS W [id number] 13:22:00CT Abdomen and Pelvis with intravenous contrast. [...] sign of infection. Left seminal vesicleshowed no significantenhancement.[facility] [id number] 12:40:00 Test Item Value Reference Range Interpretation Comments TROPONIN I (test <0.012 See_Comment [Automated code = 6074098405) message] The system which generated this result [...] ? Lab Interpretation Normal (test code = 29975-7) [facility] Met[facility] Panel (NA, K, CL, CO2, GLUCOSE, BUN, CREATININE, [place])2020-06-05 12:28:00 Test Item Value Reference Range Interpretation Comments NA (test code = 139 mmol/L 135-145 7480392225) K (test code = 4.4 mmol/L 3.5-5 9287904520) CL (test code = 112 mmol/L 98-108 H 4471326015) CO2 TOTAL (test code = 24 mmol/L 23-31 7511011691) AGAP (test code = 2-16 2475457094) BUN (test code = 23 mg/dL 7-23 7558959634) GLUCOSE (test code = 88 mg/dL 70-110 7507753605) CREATININE (test code = 0.96 mg/dL 0.6-1.25 7360965472) CALCIUM (test code = 9.5 mg/dL 8.6-10.6 5039181470) eGFR Calculation mL/min/1.73m2 (Non-) (test code = 7250819189) eGFR Calculation mL/min/1.73m2 () (test code = 7510341020) GILBERTO (test code = GILBERTO) Association of [...] tests). Lab Interpretation Abnormal (test code = 65800-5) [facility] Hospital[facility] (ALB, T.PRO, BILI T, BU/BC, ALT, AST, ALK PHOS)2020-06-05 12:28:00 Test Item Value Reference Range Interpretation Comments TOTAL BILI (test code = 3491084141) 0.5 mg/dL 0.1-1.1 BILI UNCON (test code = 3093410285) 0.3 mg/dL 0.1-1.1 BILI CONJ (test code = 4731337485) 0.0 mg/dL 0-0.3 T PROTEIN (test code = 1571311972) 6.6 g/dL 6.3-8.2 ALBUMIN (test code = 1886564971) 3.7 g/dL 3.5-5 ALK PHOS (test code = 1716209322) 79 U/L 34-122 ALTv (test code = 1742-6) 23 U/L 5-50 AST(SGOT) (test code = 6999332587) 27 U/L 13-40 Lab Interpretation (test code = Normal 47719-6) [facility] HospitalLipase [id number] 12:28:00 Test Item Value Reference Range Interpretation Comments LIPASE (test code = 9642711383) 150 U/L 0-220 Lab Interpretation (test code = Normal 62930-0) [facility] HospitalCBC with [id number] 12:11:00 Test Item Value Reference Range Interpretation [...] (test code = 62.2 fL 38.5-51.6 H 78982-5) RDW-CV (test code = 20.0 % 12.1-15.4 H 788-0) PLT (test code = See_Comment [Automated 777-3) message] The sy stem which generated this result transmitted reference range : 150 - 328 10*3/ ?L. The reference r meredith was not used to interpret this result as normal/abnormal . MPV (test code = 10.0 fL 9.8-13 90140-0) NRBC/100 WBC (test See_Comment [Automat ed code = 9226002600) message] The system which generated this result transmitted reference range : 0.0 - 10.0 /100 WBCs. The refer ence range was not u sed to interpret th is result as normal/abnormal . NRBC x10^3 (test code <0.01 See_Comment [Auto mated = 4814606691) message] The s ystem which generated this result transmitted reference range : 10*3/?L. The reference range was not used to interpret this result as normal/abnormal . GRAN MAT (NEUT) % 65.7 % (test code = 770-8) IMM GRAN % (test code 0.30 % = 9401668949) LYMPH % (test code = 21.2 % 736-9) MONO % (test code = 10.0 % 5905-5) EOS % (test code = 2.3 % 713-8) BASO % (test code = 0.5 % 706-2) GRAN MAT x10^3(ANC) 3.99 10*3/uL 1.99-6.95 (test code = 4733920529) IMM GRAN x10^3 (test <0.03 0-0.06 code = 9941030781) LYMPH x10^3 (test code 1.29 10*3/uL 1.09-3.23 = 731-0) MONO x10^3 (test code 0.61 10*3/uL 0.36-1.02 = 742-7) EOS x10^3 (test code = 0.14 10*3/uL 0.06-0.53 711-2) BASO x10^3 (test code 0.03 10*3/uL 0.01-0.09 = 704-7) Lab Interpretation Abnormal (test code = 49569-2) [facility] HospitalLactic Acid Whole [id number] 12:04:00 Test Item Value Reference Range Interpretation Comments LACTIC ACID (test code = 1.23 mmol/L 1816985964) [facility] HospitalIR ABSCESS DRAIN [id number] 14:57:23 Successful abscessogram demonstrated unchanged position of [...] consentwas obtained. Prior to beginning the procedure, [place] Protocol was usedtoconfirm the patient's identity and planned procedure. Maximum sterilebarriers including cap, mask, momin nd hygiene, sterile gloves, sterile gown,large sterile drape and cutaneous antisepsis were used. Theskin overlying the existing drainage catheter in the right upperquadrant of the abdomen was sterilely prepped, draped and infiltrated with1 percent lidocaine. A project asst image was documented prior to the injection [...] catheter and with questionablefistulization to bowel. [facility], Radiant Results Inft User - 05/31/2020 [...] consentwas obtained. Prior to beginning the procedure, [place] Protocol was usedto confirm the patient's identity and planned procedure. Maximum sterilebarriers including cap, mask, hand hygiene, sterile gloves, sterile gown,large sterile drape and cutaneous antisepsis were used. The skin overlying the existing drainage catheter in the right upperquadrant of the abdomen was sterilely prepped, draped and infiltrated with1 percent lidocaine. A project asst image was documented prior to the injection [...] by Resident: Johnny Tilley.As the attending radiologist, IDr. Sadiq, was present inthe room during the entire procedure.ISadiq MD., have reviewed this study and agree with theabove report. [facility] HospitalBASI METABOLIC PANEL (NA, K, CL, CO2, GLUCOSE, BUN, CREATININE, [place])2020-05-31 08:13:00 Test Item Value Reference Range Interpretation Comments NA (test code = 135 mmol/L 135-145 8299687461) K (test code = 4.1 mmol/L 3.5-5 9817730988) CL (test code = 99 mmol/L 98-108 2205503558) CO2 TOTAL (test code = 32 mmol/L 23-31 H 0438546313) AGAP (test code = 2-16 8209791540) BUN (test code = 14 mg/dL 7-23 2234917777) GLUCOSE (test code = 89 mg/dL 70-110 3693826535) CREATININE (test code = 0.67 mg/dL 0.6-1.25 5593113594) CALCIUM (test code = 8.2 mg/dL 8.6-10.6 L 3730612578) eGFR Calculation mL/min/1.73m2 (Non-) (test code = 9699012593) eGFR Calculation mL/min/1.73m2 () (test code = 9295961003) GILBERTO (test code = GILBERTO) Association of [...] tests). Lab Interpretation Abnormal (test code = 60060-1) [facility] HospitalMAGNESIUM2020-10-08 08:13:00 Test Item Value Reference Range Interpretation Comments MAGNESIUM (test code = 4004109269) 1.8 mg/dL 1.7-2.4 Lab Interpretation (test code = Normal 27454-8) [facility] HospitalPHOSPHORUS2020-10-08 08:13:00 Test Item Value Reference Range Interpretation Comments PHOSPHORUS (test code = 5123264194) 5.2 mg/dL 2.5-5 H Lab Interpretation (test code = Abnormal 86687-2) [facility] HospitalCB WITH [id number] 08:05:00 Test Item Value Reference Range Interpretation [...] (test code = 57.9 fL 38.5-51.6 H 89241-0) RDW-CV (test code = 18.7 % 12.1-15.4 H 788-0) PLT (test code = See_Comment [Automated 777-3) message] The sy stem which generated this result transmitted reference range : 150 - 328 10*3/ ?L. The reference r meredith was not used to interpret this result as normal/abnormal . MPV (test code = 10.3 fL 9.8-13 04348-3) NRBC/100 WBC (test See_Comment [Automat ed code = 8599562656) message] The system which generated this result transmitted reference range : 0.0 - 10.0 /100 WBCs. The refer ence range was not u sed to interpret th is result as normal/abnormal . NRBC x10^3 (test code <0.01 See_Comment [Auto mated = 6686627174) message] The s ystem which generated this result transmitted reference range : 10*3/?L. The reference range was not used to interpret this result as normal/abnormal . GRAN MAT (NEUT) % 56.4 % (test code = 770-8) IMM GRAN % (test code 0.50 % = 4862908853) LYMPH % (test code = 26.2 % 736-9) MONO % (test code = 12.2 % 5905-5) EOS % (test code = 4.2 % 713-8) BASO % (test code = 0.5 % 706-2) GRAN MAT x10^3(ANC) 2.31 10*3/uL 1.99-6.95 (test code = 6857305035) IMM GRAN x10^3 (test <0.03 0-0.06 code = 4862726162) LYMPH x10^3 (test code 1.07 10*3/uL 1.09-3.23 L = 731-0) MONO x10^3 (test code 0.50 10*3/uL 0.36-1.02 = 742-7) EOS x10^3 (test code = 0.17 10*3/uL 0.06-0.53 711-2) BASO x10^3 (test code <0.03 0.01-0.09 = 704-7) Lab Interpretation Abnormal (test code = 48312-9) [facility] METABOLIC PANEL (NA, K, CL, CO2, GLUCOSE, BUN, CREATININE, [place])2020-05-30 09:04:00 Test Item Value Reference Range Interpretation Comments NA (test code = 138 mmol/L 135-145 1662671457) K (test code = 4.4 mmol/L 3.5-5 4084397413) CL (test code = 99 mmol/L 98-108 4148855908) CO2 TOTAL (test code = 33 mmol/L 23-31 H 4697256095) AGAP (test code = 2-16 6367285199) BUN (test code = 18 mg/dL 7-23 1661693311) GLUCOSE (test code = 86 mg/dL 70-110 3341951393) CREATININE (test code = 0.61 mg/dL 0.6-1.25 2399077359) CALCIUM (test code = 8.1 mg/dL 8.6-10.6 L 4961942540) eGFR Calculation mL/min/1.73m2 (Non-) (test code = 1886661552) eGFR Calculation mL/min/1.73m2 () (test code = 7577080942) GILBERTO (test code = GILBERTO) Association of [...] tests). Lab Interpretation Abnormal (test code = 05939-9) [facility] HospitalMAGNESIUM2020-10-07 09:04:00 Test Item Value Reference Range Interpretation Comments MAGNESIUM (test code = 9996110938) 2.0 mg/dL 1.7-2.4 Lab Interpretation (test code = Normal 21798-7) [facility] HospitalPHOSPHORUS2020-10-07 09:04:00 Test Item Value Reference Range Interpretation Comments PHOSPHORUS (test code = 1197154176) 4.6 mg/dL 2.5-5 Lab Interpretation (test code = Normal 44346-1) [facility] (NA, K, CL, CO2, GLUCOSE, BUN, CREATININE, [place])2020-05-29 07:31:00 Test Item Value Reference Range Interpretation Comments NA (test code = 135 mmol/L 135-145 1882451852) K (test code = 4.0 mmol/L 3.5-5 2271536486) CL (test code = 100 mmol/L 98-108 6904685063) CO2 TOTAL (test code = 32 mmol/L 23-31 H 2710163435) AGAP (test code = 2-16 6667574004) BUN (test code = 19 mg/dL 7-23 5025441516) GLUCOSE (test code = 86 mg/dL 70-110 6100012088) CREATININE (test code = 0.68 mg/dL 0.6-1.25 4707171304) CALCIUM (test code = 8.0 mg/dL 8.6-10.6 L 5555400236) eGFR Calculation mL/min/1.73m2 (Non-) (test code = 8363543424) eGFR Calculation mL/min/1.73m2 () (test code = 4738605181) GILBERTO (test code = GILBERTO) Association of [...] tests). Lab Interpretation Abnormal (test code = 97476-1) [facility]MAG[facility]UM2020-10-06 07:31:00 Test Item Value Reference Range Interpretation Comments MAGNESIUM (test code = 3862306908) 1.6 mg/dL 1.7-2.4 L Lab Interpretation (test code = Abnormal 96151-6) [facility] HospitalPHOS[facility]US2020-10-06 07:31:00 Test Item Value Reference Range Interpretation Comments PHOSPHORUS (test code = 7423422681) 3.5 mg/dL 2.5-5 Lab Interpretation (test code = Normal 28857-0) [facility] HospitalASPIRATE OR ABSCESS CULTURE(AEROBIC/ANAEROBIC) 2020-05-28 12:35:00 Test Item Value Reference Range Interpretation Comments Aspirate or Abscess No aerobic/anaerobic Culture (test code = organisms isolated 39059-1) Gram stain (test code Occasional (Rare) = 664-3) Mononuclear cells [facility] (NA, K, CL, CO2, GLUCOSE, BUN, CREATININE, CA)2020-05-28 09:36:00 Test Item Value Reference Range Interpretation Comments NA (test code = 136 mmol/L 135-145 2195992113) K (test code = 4.3 mmol/L 3.5-5 2841963088) CL (test code = 102 mmol/L 98-108 1926807023) CO2 TOTAL (test code = 31 mmol/L 23-31 7778815031) AGAP (test code = 2-16 1932229171) BUN (test code = 25 mg/dL 7-23 H 0960551681) GLUCOSE (test code = 87 mg/dL 70-110 3489037407) CREATININE (test code = 0.65 mg/dL 0.6-1.25 0899984715) CALCIUM (test code = 8.2 mg/dL 8.6-10.6 L 1856485597) eGFR Calculation mL/min/1.73m2 (Non-) (test code = 4281587277) eGFR Calculation mL/min/1.73m2 () (test code = 1608214401) GILBERTO (test code = GILBERTO) Association of [...] tests). Lab Interpretation Abnormal (test code = 29881-2) [facility]MAG[facility]2020-10-05 09:36:00 Test Item Value Reference Range Interpretation Comments MAGNESIUM (test code = 7794470328) 1.6 mg/dL 1.7-2.4 L Lab Interpretation (test code = Abnormal 38700-8) [facility]PH[facility]2020-10-05 09:36:00 Test Item Value Reference Range Interpretation Comments PHOSPHORUS (test code = 8339254100) 2.6 mg/dL 2.5-5 Lab Interpretation (test code = Normal 83420-2) [facility] (NA, K, CL, CO2, GLUCOSE, BUN, CREATININE, CA)2020-05-27 10:13:00 Test Item Value Reference Range Interpretation Comments NA (test code = 135 mmol/L 135-145 6495242645) K (test code = 3.9 mmol/L 3.5-5 6614019579) CL (test code = 103 mmol/L 98-108 4894298820) CO2 TOTAL (test code = 28 mmol/L 23-31 9380928853) AGAP (test code = 2-16 4146312302) BUN (test code = 20 mg/dL 7-23 1245437835) GLUCOSE (test code = 95 mg/dL 70-110 0590581751) CREATININE (test code = 0.67 mg/dL 0.6-1.25 6552710369) CALCIUM (test code = 8.2 mg/dL 8.6-10.6 L 8261565886) eGFR Calculation mL/min/1.73m2 (Non-) (test code = 7061160916) eGFR Calculation mL/min/1.73m2 () (test code = 1168181647) GILBERTO (test code = GILBERTO) Association of [...] tests). Lab Interpretation Abnormal (test code = 87358-6) [facility]2020-10-04 10:13:00 Test Item Value Reference Range Interpretation Comments MAGNESIUM (test code = 7868023802) 1.5 mg/dL 1.7-2.4 L Lab Interpretation (test code = Abnormal 87746-1) [facility]PH[facility]2020-10-04 10:13:00 Test Item Value Reference Range Interpretation Comments PHOSPHORUS (test code = 4138178237) 3.4 mg/dL 2.5-5 Lab Interpretation (test code = Normal 58826-2) [facility] HospitalIR CHANGE OF ABSCESS [id number] 17:06:27 Successful removal of the left upper quadrant drainage catheter. Replacement of the right upper quadrant catheter into the most superiorsegment of the collection with a new 10 Mont[place] pigtail catheter.PLAN: This tube should be flushed with 10 of saline twice a day. ?We willcontinue to monitor the output of the catheter while the patient isin-house. If the patient is discharged prior to catheter removal, follow-upwith VIR is recommended in 7-10 ?days. This can be arranged by [id number]. Preliminary Report Dictated by Resident: Johnny Tilley I, as teaching physician, was present during the entire procedure and/orduring the botello components. INixon MD., have reviewed this study andagree with [...] from those actually performing theprocedure. Please see [facility] for sedation time. RADIATION DOSE: 33.0 mGy. TECHNIQUE: The risks, benefits and alternativeswere discussed and informed consentwas obtained. Prior to beginning the procedure, [place] Protocol was usedto confirm the patient's identity [...] the pigtailcatheters within the respective collections. [facility], Radiant Results Inft User - 05/26/2020 12:07 PM CDTEXAMINATION: 1. PERCUTANEOUS PERIHEPATIC DRAINAGE REPLACEMENT2. LEFT UPPER QUADRANT DRAINAGE REMOVAL.HISTORY: 50 years-old; Male; abscess ATTENDEES: Attending radiologist: Nixon Perez; Resident: Dr. Johnny Tilley;Contributing VIR Fellow: Dr. Vance Stafford.SEDATION: Moderate sedation was administered under the attendingphysician's direction and continuous monitoring by a trained nursespecialist who was independent from those actually performing theprocedure. Please see [facility] for sedation time.RADIATION DOSE: 33.0 mGy.TECHNIQUE: The risks, benefits andalternatives were discussed and informed consentwas obtained. Prior to beginning the procedure, [place] Protocol was usedto confirm the patient's identity [...] of the collection with a new 10 [place] pigtail catheter.PLAN: This tube should be flushed with 10 of saline twice a day. We willcontinue to monitor the output of the catheter while the patient isin-house. If the patient is discharged prior to catheter removal, follow-upwith VIR is recommended in 7-10 days. This can be arranged by [id number].Preliminary Report Dictated by Resident: Johnny Benitez, as teaching physician, was present during the entire procedure and/orduring the botello components.Nixon Damon MD., have reviewed this study and agree with theabove report.[facility] HospitalIR ASPIRATION ABSCESS BULLA OR CYST BY [id number] 17:06:16 Successful ultrasound-guided aspiration of intrahepatic small [...] consentwas obtained. Prior to beginning the procedure, [place] Protocol was usedto confirm the patient's identity and planned procedure. Maximum sterilebarriers including cap, mask, hand hygiene, sterile gloves, sterile gown,large sterile drape and cutaneous antisepsis were used. The skin overlying the right mid abdomen was sterilely prepped, draped andinfiltrated with 1percent lidocaine. The targeted infrahepatic small collection was then accessed with [id number] micropuncture needle using imaging guidance which includedultrasound. [...] consentwas obtained. Prior to beginning the procedure, [place] Protocol was usedto confirm the patient's identity and planned procedure. Maximum sterilebarriers including cap, mask, hand hygiene, sterile gloves, sterile gown,large sterile drape and cutaneous antisepsis were used. The skin overlying the right mid abdomen was sterilely prepped, draped andinfiltrated with 1 percent lidocaine. The targeted infrahepatic small collection was then accessed with [id number] micropuncture needle using imaging guidance which includ [...] reviewed this study and agree with theabove report.[facility] (NA, K, CL, CO2, GLUCOSE, BUN, CREATININE, CA) 2020-05-26 10:13:00 Test Item Value Reference Range Interpretation Comments NA (test code = 135 mmol/L 135-145 1216959258) K (test code = 4.4 mmol/L 3.5-5 2667203507) CL (test code = 107 mmol/L 98-108 5784650457) CO2 TOTAL (test code = 23 mmol/L 23-31 4111907541) AGAP (test code = 2-16 6989418635) BUN (test code = 18 mg/dL 7-23 4798809319) GLUCOSE (test code = 101 mg/dL 70-110 0274845453) CREATININE (test code = 0.61 mg/dL 0.6-1.25 9783054351) CALCIUM (test code = 8.1 mg/dL 8.6-10.6 L 4528090908) eGFR Calculation mL/min/1.73m2 (Non-) (test code = 4152499874) eGFR Calculation mL/min/1.73m2 () (test code = 1097692425) GILBERTO (test code = GILBERTO) Association of [...] tests). Lab Interpretation Abnormal (test code = 58810-4) [facility]2020-10-03 10:13:00 Test Item Value Reference Range Interpretation Comments MAGNESIUM (test code = 7860059451) 1.7 mg/dL 1.7-2.4 Lab Interpretation (test code = Normal 68477-5) [facility]PH[facility]2020-10-03 10:13:00 Test Item Value Reference Range Interpretation Comments PHOSPHORUS (test code = 7534768078) 3.4 mg/dL 2.5-5 Lab Interpretation (test code = Normal 97930-3) [facility] HospitalXR [id number] 23:20:33 Positioning dictated draining the right upper [...] identified. No acutebony abnormality is present. [facility], Radiant Results Inft User - 05/25/2020 [...] reviewed this study and agree with theabove report.[facility] HospitalBASIC METABOLIC PANEL (NA, K, CL, CO2, GLUCOSE, BUN, CREATININE, CA)2020-05-25 22:49:00 Test Item Value Reference Range Interpretation Comments NA (test code = 136 mmol/L 135-145 0234429790) K (test code = 4.5 mmol/L 3.5-5 7404391102) CL (test code = 105 mmol/L 98-108 7093436893) CO2 TOTAL (test code = 22 mmol/L 23-31 L 1158145157) AGAP (test code = 2-16 8016476734) BUN (test code = 24 mg/dL 7-23 H 2967735510) GLUCOSE (test code = 101 mg/dL 70-110 9101042596) CREATININE (test code = 0.74 mg/dL 0.6-1.25 0150972385) CALCIUM (test code = 8.6 mg/dL 8.6-10.6 9309776786) eGFR Calculation mL/min/1.73m2 (Non-) (test code = 2570257622) eGFR Calculation mL/min/1.73m2 () (test code = 0416150706) GILBERTO (test code = GILBERTO) Association of [...] tests). Lab Interpretation Abnormal (test code = 34951-5) [facility]MAG[facility]2020-10-02 22:11:00 Test Item Value Reference Range Interpretation Comments MAGNESIUM (test code = 5147605105) 2.0 mg/dL 1.7-2.4 Lab Interpretation (test code = Normal 34001-7) [facility]00 Test Item Value Reference Range Interpretation Comments PHOSPHORUS (test code = 2397190750) 3.1 mg/dL 2.5-5 Lab Interpretation (test code = Normal 51029-7) [facility] HospitalCB WITH [id number] 21:51:00 Test Item Value Reference Range Interpretation [...] (test code = 53.1 fL 38.5-51.6 H 59934-5) RDW-CV (test code = 17.9 % 12.1-15.4 H 788-0) PLT (test code = See_Comment [Automated 777-3) message] The sy stem which generated this result transmitted reference range : 150 - 328 10*3/ ?L. The reference r meredith was not used to interpret this result as normal/abnormal . MPV (test code = 9.1 fL 9.8-13 L 82850-8) NRBC/100 WBC (test See_Comment [Automat ed code = 8083715995) message] The system which generated this result transmitted reference range : 0.0 - 10.0 /100 WBCs. The refer ence range was not u sed to interpret th is result as normal/abnormal . NRBC x10^3 (test code <0.01 See_Comment [Auto mated = 6484387733) message] The s ystem which generated this result transmitted reference range : 10*3/?L. The reference range was not used to interpret this result as normal/abnormal . GRAN MAT (NEUT) % 73.4 % (test code = 770-8) IMM GRAN % (test code 0.50 % = 2741991361) LYMPH % (test code = 17.9 % 736-9) MONO % (test code = 5.2 % 5905-5) EOS % (test code = 2.5 % 713-8) BASO % (test code = 0.5 % 706-2) GRAN MAT x10^3(ANC) 4.05 10*3/uL 1.99-6.95 (test code = 5833971543) IMM GRAN x10^3 (test 0.03 10*3/uL 0-0.06 code = 9353033797) LYMPH x10^3 (test code 0.99 10*3/uL 1.09-3.23 L = 731-0) MONO x10^3 (test code 0.29 10*3/uL 0.36-1.02 L = 742-7) EOS x10^3 (test code = 0.14 10*3/uL 0.06-0.53 711-2) BASO x10^3 (test code 0.03 10*3/uL 0.01-0.09 = 704-7) Lab Interpretation Abnormal (test code = 60961-7) [facility] METABOLIC PANEL (NA, K, CL, CO2, GLUCOSE, BUN, CREATININE, CA)2020-05-25 09:24:00 Test Item Value Reference Range Interpretation Comments NA (test code = 135 mmol/L 135-145 0447536517) K (test code = 5.3 mmol/L 3.5-5 H Slight 9162662510) hemolysis CL (test code = 104 mmol/L 98-108 0652501646) CO2 TOTAL (test code 24 mmol/L 23-31 = 6123086134) AGAP (test code = 2-16 2542379120) BUN (test code = 22 mg/dL 7-23 Slight 3803405840) hemolysis GLUCOSE (test code = 96 mg/dL 70-110 5609277210) CREATININE (test code 0.73 mg/dL 0.6-1.25 = 2516890809) CALCIUM (test code = 8.2 mg/dL 8.6-10.6 L 8770825538) eGFR Calculation mL/min/1.73m2 (Non-) (test code = 5111004087) eGFR Calculation mL/min/1.73m2 () (test code = 5809088145) GILBERTO (test code = GILBERTO) Association of [...] tests). Lab Interpretation Abnormal (test code = 15464-2) [facility]2020-10-02 09:24:00 Test Item Value Reference Range Interpretation Comments MAGNESIUM (test code = 0917241422) 2.3 mg/dL 1.7-2.4 Lab Interpretation (test code = Normal 41382-0) [facility]PH[facility]2020-10-02 09:24:00 Test Item Value Reference Range Interpretation Comments PHOSPHORUS (test code = 1768306704) 3.4 mg/dL 2.5-5 Lab Interpretation (test code = Normal 51556-0) [facility] (NA, K, CL, CO2, GLUCOSE, BUN, CREATININE, CA)2020-05-24 21:00:00 Test Item Value Reference Range Interpretation Comments NA (test code = 135 mmol/L 135-145 5279826420) K (test code = 4.3 mmol/L 3.5-5 5569893852) CL (test code = 102 mmol/L 98-108 0431208876) CO2 TOTAL (test code = 25 mmol/L 23-31 8388324543) AGAP (test code = 2-16 7453931396) BUN (test code = 20 mg/dL 7-23 0339008232) GLUCOSE (test code = 102 mg/dL 70-110 8871878287) CREATININE (test code 0.97 mg/dL 0.6-1.25 = 6422527070) CALCIUM (test code = 9.0 mg/dL 8.6-10.6 1256682500) eGFR Calculation mL/min/1.73m2 (Non-) (test code = 8641174703) eGFR Calculation mL/min/1.73m2 () (test code = 2150574888) GILBERTO (test code = GILBERTO) Association of [...] or urine or abnormalities in imaging tests). [facility] 21:00:00 Test Item Value Reference Range Interpretation Comments MAGNESIUM (test code = 1421810370) 1.5 mg/dL 1.7-2.4 L Lab Interpretation (test code = Abnormal 50073-3) [facility] HospitalPHOSPHORUS2020-10-01 20:58:00 Test Item Value Reference Range Interpretation Comments PHOSPHORUS (test code = 9103172148) 3.3 mg/dL 2.5-5 Lab Interpretation (test code = Normal 94219-4) [facility] HospitalCB with Orvrzgtklycs3661-73-30 11:31:00 Test Item Value Reference Range Interpretation [...] (test code = 51.9 fL 38.5-51.6 H 02009-7) RDW-CV (test code = 17.6 % 12.1-15.4 H 788-0) PLT (test code = See_Comment H [Automated 777-3) message] The sy stem which generated this result transmitted reference range : 150 - 328 10*3/ ?L. The reference r meredith was not used to interpret this result as normal/abnormal . MPV (test code = 9.0 fL 9.8-13 L 36517-0) NRBC/100 WBC (test See_Comment [Automat ed code = 8518026355) message] The system which generated this result transmitted reference range : 0.0 - 10.0 /100 WBCs. The refer ence range was not u sed to interpret th is result as normal/abnormal . NRBC x10^3 (test code <0.01 See_Comment [Auto mated = 9199470597) message] The s ystem which generated this result transmitted reference range : 10*3/?L. The reference range was not used to interpret this result as normal/abnormal . GRAN MAT (NEUT) % 66.0 % (test code = 770-8) IMM GRAN % (test code 0.20 % = 1259011416) LYMPH % (test code = 20.3 % 736-9) MONO % (test code = 10.4 % 5905-5) EOS % (test code = 2.6 % 713-8) BASO % (test code = 0.5 % 706-2) GRAN MAT x10^3(ANC) 4.33 10*3/uL 1.99-6.95 (test code = 8739863787) IMM GRAN x10^3 (test <0.03 0-0.06 code = 4597300953) LYMPH x10^3 (test code 1.33 10*3/uL 1.09-3.23 = 731-0) MONO x10^3 (test code 0.68 10*3/uL 0.36-1.02 = 742-7) EOS x10^3 (test code = 0.17 10*3/uL 0.06-0.53 711-2) BASO x10^3 (test code 0.03 10*3/uL 0.01-0.09 = 704-7) Lab Interpretation Abnormal (test code = 43181-3) [facility] HospitalCT [facility] PEL[facility] W [id number] 17:39:05 Since 05/19/2020 slight increase in size of collection in the rightparacolic gutter, interval post removal of the right lower quadrant drain. The left diaphragmatic and right perihepatic are unchangedwith drains insitu as above. CT ABDOMEN PELVIS W CONTRAST 05/23/2020 9:50 AM HISTORY: fluid collection s, eval for IR drainage. 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 Concern for displacement of the RLQ drain COMPARISON: CT abdomen pelvis 05/23/2020 DOSE: 369.5 mGy-cm TECHNIQUE: Axial images of the abdomen and pelvis were acquired afteradministration of 100 ml Omnipaque 350. Coronal and sagittalreconstructions were also created. FINDINGS: LOWER CHEST: Small left pleural effusion and adjacent lung atelectasis. HEPATOBILIARY: No hepatomegaly. No biliary ductal dilatation.. No biliaryductal dilatation. No hyperdense stone. Pericholecystic stranding likelysecondary to adjacent subphrenic collection. SPLEEN: No splenomegaly. PANCREAS: No ductal dilation, or solid masses. ADRENAL GLANDS: No adrenal nodules. KIDNEYS: No hydronephrosis or stone. No solid mass. GI TRACT/PERITONEUM: Postsurgical changes of total [...] Interval removal of the drain in the right [...] BONES AND SOFT TISSUES: Stable within L4 ve rtebral body since priorexamination dated back to 2017 suggestive of benign lesion. [facility], Radiant Results Inft User - 05/23/2020 12:40 PM CDTCT ABDOMEN PELVIS W CONTRAST 05/23/2020 9:50 AMHISTORY: fluidcollections, eval for IR drainage. A 50 year old male?s/ptotal abdominal colectomy 09/25 colonic inertia c/b anastomotic leak leadingto end [...] perihepatic are unchanged with drains insitu as above.[facility] Met[facility] Panel (NA, K, CL, CO2, Glucose, BUN, Creatinine, CA)2020-05-23 10:25:00 Test Item Value Reference Range Interpretation Comments NA (test code = 135 mmol/L 135-145 9148237346) K (test code = 3.7 mmol/L 3.5-5 4209320986) CL (test code = 105 mmol/L 98-108 3599461523) CO2 TOTAL (test code = 24 mmol/L 23-31 8359494542) AGAP (test code = 2-16 2285236568) BUN (test code = 19 mg/dL 7-23 2638201776) GLUCOSE (test code = 117 mg/dL 70-110 H 0614626927) CREATININE (test code = 0.74 mg/dL 0.6-1.25 6416332316) CALCIUM (test code = 7.3 mg/dL 8.6-10.6 L 8858079226) eGFR Calculation mL/min/1.73m2 (Non-) (test code = 2927115167) eGFR Calculation mL/min/1.73m2 () (test code = 7233918399) GILBERTO (test code = GILBERTO) Association of [...] tests). Lab Interpretation Abnormal (test code = 99247-5) [facility] HospitalCORONAVIRUS COVID-19 [id number] 07:40:00 Test Item Value Reference Range Interpretation Comments SARS-CoV-2 Rapid ID NOW Not Detected Not Detected (test code = 51949-4) GILBERTO (test code = GILBERTO) ID NOW COVID-19 Assay is an isothermal nucleic acid amplification test intended for the qualitative detection of nucleic acid from SARS-CoV-2 viral RNA in nasopharyngeal (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) specimens. It is used under Emergency Use [...] indicated. Lab Interpretation Normal (test code = 62048-3) [facility] HospitalUrinalysis2020-09-29 22:41:00 Test Item Value Reference Range Interpretation Comments APPEARANCE (test code = Hazy Clear A 4536267438) COLOR (test code = Yellow Yellow 0894410682) PH (test code = 4.8-8.0 5766743374) SP GRAVITY (test code = 1.003-1.030 8440969863) GLU U QUAL (test code = Normal Normal 7113517675) BLOOD (test code = Negative Negative 6047545207) KETONES (test code = Negative Negative 3956329321) PROTEIN (test code = 30 mg/dL Negative A 2887-8) UROBILIN (test code = Normal Normal 5600064364) BILIRUBIN (test code = Negative Negative 7772074512) NITRITE (test code = Negative Negative 3698937898) LEUK ROGER (test code = Negative Negative 8349031090) RBC/HPF (test code = See_Comment H [Autom ated message] 6701294923) The system Wizpert generated this result transmitted ref erence range: 0 - 3 HP F. The reference range was not used to int erpret this result as normal/abnormal . WBC/HPF (test code = See_Comment H [Autom ated message] 4712271167) The system Wizpert generated this result transmitted ref erence range: 0 - 5 HP F. The reference range was not used to int erpret this result as normal/abnormal . BACTERIA (test code = Negative Negative 2890977653) MUCOUS (test code = Moderate Negative LPF A 3624364804) SQ EPITH (test code = See_Comment [Auto mated message] 4964097543) The system Wizpert generated this result transmitted ref erence range: <=2 HPF. The reference range was not used to int erpret this result as normal/abnormal . CA OXALATE (test code = See_Comment H [Au tomated message] 2231097519) The system Wizpert generated this result transmitted ref erence range: <=1 HPF. The reference range was not used to int erpret this result as normal/abnormal . HYAL CAST (test code = See_Comment H [Aut omated message] 9863704624) The system Wizpert generated this result transmitted ref erence range: <=2 LPF. The reference range was not used to int erpret this result as normal/abnormal . Lab Interpretation (test Abnormal code = 41112-6) [facility] Metabolic Panel (NA, K, CL, CO2, GLUCOSE, BUN, CREATININE, CA)2020-05-22 21:46:00 Test Item Value Reference Range Interpretation Comments NA (test code = 134 mmol/L 135-145 L 7918900868) K (test code = 5.0 mmol/L 3.5-5 0481259905) CL (test code = 103 mmol/L 98-108 4747985930) CO2 TOTAL (test code = 25 mmol/L 23-31 8733294437) AGAP (test code = 2-16 8562429948) BUN (test code = 24 mg/dL 7-23 H 1003186377) GLUCOSE (test code = 102 mg/dL 70-110 4606642016) CREATININE (test code = 0.87 mg/dL 0.6-1.25 0941796893) CALCIUM (test code = 9.2 mg/dL 8.6-10.6 4902227526) eGFR Calculation mL/min/1.73m2 (Non-) (test code = 0617395487) eGFR Calculation mL/min/1.73m2 () (test code = 1166277975) GILBERTO (test code = GILBERTO) Association of [...] tests). Lab Interpretation Abnormal (test code = 48406-4) [facility] HospitalHepatic Function Panel (ALB, T.PRO, BILI T, BU/BC, ALT, AST, ALK PHOS)2020-05-22 21:46:00 Test Item Value Reference Range Interpretation Comments TOTAL BILI (test code = 2710231678) 0.4 mg/dL 0.1-1.1 BILI UNCON (test code = 0500015729) 0.2 mg/dL 0.1-1.1 BILI CONJ (test code = 1167370795) 0.0 mg/dL 0-0.3 T PROTEIN (test code = 9374878359) 6.5 g/dL 6.3-8.2 ALBUMIN (test code = 1555511756) 3.6 g/dL 3.5-5 ALK PHOS (test code = 1366223516) 96 U/L 34-122 ALTv (test code = 1742-6) 22 U/L 5-50 AST(SGOT) (test code = 0152257008) 28 U/L 13-40 Lab Interpretation (test code = Normal 92079-6) [facility] HospitalLipase Nkhss7130-62-92 21:46:00 Test Item Value Reference Range Interpretation Comments LIPASE (test code = 0687488179) 95 U/L 0-220 Lab Interpretation (test code = Normal 81541-0) [facility] HospitalaPTT2020-09-29 21:46:00 Test Item Value Reference Range Interpretation Comments APTT Patient (test code = See_Comment [ Automated message] 3173-2) The system Wizpert generated this result transmitted ref erence range: 26 - 36 Seconds. The re ference range was not u sed to interpret this result as normal/abnor mal. Lab Interpretation (test Normal code = 69532-0) [facility] HospitalProthrombin Time (PT) / [id number] 21:46:00 Test Item Value Reference Range Interpretation [...] tions. Lab Interpretation (test Abnormal code = 88299-3) [facility] with Pdukmzlgyepj9516-44-99 21:41:00 Test Item Value Reference Range Interpretation [...] (test code = 53.0 fL 38.5-51.6 H 13287-6) RDW-CV (test code = 17.6 % 12.1-15.4 H 788-0) PLT (test code = See_Comment H [Automated 777-3) message] The sy stem which generated this result transmitted reference range : 150 - 328 10*3/ ?L. The reference r meredith was not used to interpret this result as normal/abnormal . MPV (test code = 9.1 fL 9.8-13 L 10664-5) NRBC/100 WBC (test See_Comment [Automat ed code = 8375350932) message] The system which generated this result transmitted reference range : 0.0 - 10.0 /100 WBCs. The refer ence range was not u sed to interpret th is result as normal/abnormal . NRBC x10^3 (test code <0.01 See_Comment [Auto mated = 7110612384) message] The s ystem which generated this result transmitted reference range : 10*3/?L. The reference range was not used to interpret this result as normal/abnormal . GRAN MAT (NEUT) % 77.4 % (test code = 770-8) IMM GRAN % (test code 0.50 % = 8297832372) LYMPH % (test code = 15.8 % 736-9) MONO % (test code = 4.9 % 5905-5) EOS % (test code = 0.8 % 713-8) BASO % (test code = 0.6 % 706-2) GRAN MAT x10^3(ANC) 5.04 10*3/uL 1.99-6.95 (test code = 6362823167) IMM GRAN x10^3 (test 0.03 10*3/uL 0-0.06 code = 2000358375) LYMPH x10^3 (test code 1.03 10*3/uL 1.09-3.23 L = 731-0) MONO x10^3 (test code 0.32 10*3/uL 0.36-1.02 L = 742-7) EOS x10^3 (test code = 0.05 10*3/uL 0.06-0.53 L 711-2) BASO x10^3 (test code 0.04 10*3/uL 0.01-0.09 = 704-7) Lab Interpretation Abnormal (test code = 16400-6) [facility] 1 [id number] 21:19:32CHEST ONE VIEW HISTORY: ?Weakness TECHNIQUE: ?AP [...] the left costophrenic angle suggests a leftpleural effusion.[facility] HospitalCOVID-19 (ID NOW RAPID TESTING) 2020-05-20 10:09:00 Test Item Value Reference Range Interpretation Comments SARS-CoV-2 Rapid ID NOW Not Detected Not Detected (test code = 50048-4) GILBERTO (test code = GILBERTO) ID NOW COVID-19 Assay is an isothermal nucleic acid amplification test intended for the qualitative detection of nucleic acid from SARS-CoV-2 viral RNA in nasopharyngeal (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) specimens. It is used under Emergency Use [...] indicated. Lab Interpretation Normal (test code = 43957-8) [facility] HospitalURINALYSIS2020-09-27 10:07:00 Test Item Value Reference Range Interpretation Comments APPEARANCE (test code = Clear Clear 3839904015) COLOR (test code = Yellow Yellow 3236076446) PH (test code = 4.8-8.0 6262424592) SP GRAVITY (test code = 1.003-1.030 H 1642864780) GLU U QUAL (test code = Normal Normal 4248327961) BLOOD (test code = Negative Negative 9894402361) KETONES (test code = Negative Negative 9808073555) PROTEIN (test code = Negative Negative 2887-8) UROBILIN (test code = Normal Normal 1797920356) BILIRUBIN (test code = Negative Negative 9630574053) NITRITE (test code = Negative Negative 9859469924) LEUK ROGER (test code = Negative Negative 6832128761) RBC/HPF (test code = See_Comment [Autom ated message] 8556643365) The system Wizpert generated this result transmitted ref erence range: 0 - 3 HP F. The reference range was not used to int erpret this result as normal/abnormal . WBC/HPF (test code = See_Comment [Autom ated message] 8655493383) The system Wizpert generated this result transmitted ref erence range: 0 - 5 HP F. The reference range was not used to int erpret this result as normal/abnormal . BACTERIA (test code = Negative Negative 6412685593) MUCOUS (test code = Slight Negative LPF A 7948525515) SQ EPITH (test code = See_Comment [Auto mated message] 3111565886) The system Wizpert generated this result transmitted ref erence range: <=2 HPF. The reference range was not used to int erpret this result as normal/abnormal . HYAL CAST (test code = See_Comment H [Aut omated message] 0415030660) The system Wizpert generated this result transmitted ref erence range: <=2 LPF. The reference range was not used to int erpret this result as normal/abnormal . Lab Interpretation (test Abnormal code = 17060-3) [facility] HospitalCT ABDOMEN PELVIS W [id number] 04:28:40Impression: 1. Multiple rim-enhancing fluid and gas [...] effusions, possiblyloculated on the left. RL: 2824AFC: [id number] End of Report Exam: CT Abdomen and [...] Pelvis With Contrast, 05/19/2020 10:15 PM.Ordering Physician: JNOAH RODRIGUEZ.History: Abdominal pain.Technique: CT abdomen and pelvis [...] pleural effusions, possiblyloculated on the left.RL: 2824AFC: 13054Fln of Report [facility]TIM[facility] [id number] 03:44:00 Test Item Value Reference Range Interpretation Comments TROPONIN I (test 0.001 ng/mL See_Comment [Automated code = 0353633174) message] The system which generated this result [...] ? Lab Interpretation Normal (test code = 77309-0) [facility] HospitalCOMP. METABOLIC PANEL (90542)2020-05-20 03:33:00 Test Item Value Reference Range Interpretation Comments NA (test code = 138 mmol/L 135-145 7578415405) K (test code = 5.3 mmol/L 3.5-5 H 0810591712) CL (test code = 100 mmol/L 98-108 6010856612) CO2 TOTAL (test code = 28 mmol/L 23-31 0077072981) AGAP (test code = 2-16 5454777773) BUN (test code = 27 mg/dL 7-23 H 5954016994) GLUCOSE (test code = 90 mg/dL 70-110 9197177016) CREATININE (test code = 1.25 mg/dL 0.6-1.25 6268201755) TOTAL BILI (test code = 0.2 mg/dL 0.1-1.1 4675030943) CALCIUM (test code = 9.9 mg/dL 8.6-10.6 9717257728) T PROTEIN (test code = 6.8 g/dL 6.3-8.2 5695172296) ALBUMIN (test code = 3.7 g/dL 3.5-5 9681808505) ALK PHOS (test code = 122 U/L 34-122 9191196706) ALTv (test code = 26 U/L 5-50 1742-6) AST(SGOT) (test code = 24 U/L 13-40 5082398671) eGFR Calculation mL/min/1.73m2 (Non-) (test code = 2251141597) eGFR Calculation mL/min/1.73m2 () (test code = 0845890264) GILBERTO (test code = GILBERTO) Association of [...] tests). Lab Interpretation Abnormal (test code = 81112-3) [facility] HospitalLIPASE2020-09-27 03:33:00 Test Item Value Reference Range Interpretation Comments LIPASE (test code = 4279897219) 223 U/L 0-220 H Lab Interpretation (test code = Abnormal 92315-1) [facility] HospitalMAGNESIUM2020-09-27 03:33:00 Test Item Value Reference Range Interpretation Comments MAGNESIUM (test code = 5441334710) 1.7 mg/dL 1.7-2.4 Lab Interpretation (test code = Normal 95619-6) [facility] HospitalCB WITH [id number] 03:17:00 Test Item Value Reference Range Interpretation Comments WBC (test code = See_Comment [Automated 2910-2) message] The sy stem which generated this result transmitted reference range : 4.20 - 10.70 10*3/?L. The reference range was not used to interpret this result as normal/abnormal . RBC (test code = See_Comment L [Automated 090-8) message] The sy stem which generated this [...] RDW-SD (test code = 49.9 fL 38.5-51.6 20884-0) RDW-CV (test code = 17.2 % 12.1-15.4 H 788-0) PLT (test code = See_Comment H [Automated 777-3) message] The sy stem which generated this result transmitted reference range : 150 - 328 10*3/ ?L. The reference r meredith was not used to interpret this result as normal/abnormal . MPV (test code = 9.3 fL 9.8-13 L 25468-0) NRBC/100 WBC (test See_Comment [Automat ed code = 8060001525) message] The system which generated this result transmitted reference range : 0.0 - 10.0 /100 WBCs. The refer ence range was not u sed to interpret th is result as normal/abnormal . NRBC x10^3 (test code <0.01 See_Comment [Auto mated = 1603630619) message] The s ystem which generated this result transmitted reference range : 10*3/?L. The reference range was not used to interpret this result as normal/abnormal . GRAN MAT (NEUT) % 78.5 % (test code = 770-8) IMM GRAN % (test code 0.50 % = 9018316510) LYMPH % (test code = 11.6 % 736-9) MONO % (test code = 8.4 % 5905-5) EOS % (test code = 0.6 % 713-8) BASO % (test code = 0.4 % 706-2) GRAN MAT x10^3(ANC) 6.16 10*3/uL 1.99-6.95 (test code = 8244631584) IMM GRAN x10^3 (test 0.04 10*3/uL 0-0.06 code = 5967207322) LYMPH x10^3 (test code 0.91 10*3/uL 1.09-3.23 L = 731-0) MONO x10^3 (test code 0.66 10*3/uL 0.36-1.02 = 742-7) EOS x10^3 (test code = 0.05 10*3/uL 0.06-0.53 L 711-2) BASO x10^3 (test code 0.03 10*3/uL 0.01-0.09 = 704-7) Lab Interpretation Abnormal (test code = 13267-0) [facility] HospitalBODY FLUID CULTURE(AEROBIC/ANAEROBIC) 2020-05-10 15:19:00 Test Item Value Reference Range Interpretation Comments BODY FLUID CULT 2+ Clostridioides (test code = (Clostridium) difficile 611-4) Gram stain (test Few PMNs or Mononuclear code = 664-3) cells observed [facility] Metabolic Panel (NA, K, CL, CO2, GLUCOSE, BUN, CREATININE, CA)2020-05-10 10:27:00 Test Item Value Reference Range Interpretation Comments NA (test code = 132 mmol/L 135-145 L 8594769288) K (test code = 4.0 mmol/L 3.5-5 8469396177) CL (test code = 97 mmol/L 98-108 L 3721483353) CO2 TOTAL (test code = 28 mmol/L 23-31 5926101249) AGAP (test code = 2-16 8843002891) BUN (test code = 12 mg/dL 7-23 0694801462) GLUCOSE (test code = 128 mg/dL 70-110 H 9134223464) CREATININE (test code = 0.63 mg/dL 0.6-1.25 8491629651) CALCIUM (test code = 8.7 mg/dL 8.6-10.6 0202000418) eGFR Calculation mL/min/1.73m2 (Non-) (test code = 4551247967) eGFR Calculation mL/min/1.73m2 () (test code = 3316145153) GILBERTO (test code = GILBERTO) Association of [...] tests). Lab Interpretation Abnormal (test code = 38316-5) [facility] HospitalMagnesium [id number] 10:27:00 Test Item Value Reference Range Interpretation Comments MAGNESIUM (test code = 9228579139) 1.7 mg/dL 1.7-2.4 Lab Interpretation (test code = Normal 32324-5) [facility] HospitalPhosphorus [id number] 10:27:00 Test Item Value Reference Range Interpretation Comments PHOSPHORUS (test code = 2372832352) 3.4 mg/dL 2.5-5 Lab Interpretation (test code = Normal 24388-5) [facility] HospitalCB with Gfyasvlddwbd8831-68-95 10:03:00 Test Item Value Reference Range Interpretation [...] RDW-SD (test code = 47.3 fL 38.5-51.6 95117-5) RDW-CV (test code = 15.7 % 12.1-15.4 H 788-0) PLT (test code = See_Comment H [Automated 777-3) message] The sy stem which generated this result transmitted reference range : 150 - 328 10*3/ ?L. The reference r meredith was not used to interpret this result as normal/abnormal . MPV (test code = 8.9 fL 9.8-13 L 43573-4) NRBC/100 WBC (test See_Comment [Automat ed code = 4146770670) message] The system which generated this result transmitted reference range : 0.0 - 10.0 /100 WBCs. The refer ence range was not u sed to interpret th is result as normal/abnormal . NRBC x10^3 (test code <0.01 See_Comment [Auto mated = 3013714472) message] The s ystem which generated this result transmitted reference range : 10*3/?L. The reference range was not used to interpret this result as normal/abnormal . GRAN MAT (NEUT) % 80.0 % (test code = 770-8) IMM GRAN % (test code 0.50 % = 5099880894) LYMPH % (test code = 11.8 % 736-9) MONO % (test code = 6.6 % 5905-5) EOS % (test code = 0.8 % 713-8) BASO % (test code = 0.3 % 706-2) GRAN MAT x10^3(ANC) 6.98 10*3/uL 1.99-6.95 H (test code = 4007208537) IMM GRAN x10^3 (test 0.04 10*3/uL 0-0.06 code = 0445995534) LYMPH x10^3 (test code 1.03 10*3/uL 1.09-3.23 L = 731-0) MONO x10^3 (test code 0.58 10*3/uL 0.36-1.02 = 742-7) EOS x10^3 (test code = 0.07 10*3/uL 0.06-0.53 711-2) BASO x10^3 (test code 0.03 10*3/uL 0.01-0.09 = 704-7) Lab Interpretation Abnormal (test code = 15530-0) [facility] Metabolic Panel (NA, K, CL, CO2, GLUCOSE, BUN, CREATININE, CA)2020-05-09 11:07:00 Test Item Value Reference Range Interpretation Comments NA (test code = 133 mmol/L 135-145 L 5656344917) K (test code = 4.4 mmol/L 3.5-5 5989431406) CL (test code = 100 mmol/L 98-108 7826486729) CO2 TOTAL (test code = 25 mmol/L 23-31 2693019657) AGAP (test code = 2-16 1159454233) BUN (test code = 14 mg/dL 7-23 9910828376) GLUCOSE (test code = 93 mg/dL 70-110 5672448559) CREATININE (test code = 0.66 mg/dL 0.6-1.25 8661975158) CALCIUM (test code = 8.3 mg/dL 8.6-10.6 L 0835012131) eGFR Calculation mL/min/1.73m2 (Non-) (test code = 6774003487) eGFR Calculation mL/min/1.73m2 () (test code = 4989824951) GILBERTO (test code = GILBERTO) Association of [...] tests). Lab Interpretation Abnormal (test code = 39911-0) [facility] HospitalMagnesium [id number] 11:07:00 Test Item Value Reference Range Interpretation Comments MAGNESIUM (test code = 3285224629) 1.8 mg/dL 1.7-2.4 Lab Interpretation (test code = Normal 98826-8) [facility] HospitalPhosphorus Mihdb7850-12-20 11:07:00 Test Item Value Reference Range Interpretation Comments PHOSPHORUS (test code = 8622804651) 3.2 mg/dL 2.5-5 Lab Interpretation (test code = Normal 17932-7) [facility] with Fyptqmnbdear3086-84-34 10:42:00 Test Item Value Reference Range Interpretation Comments WBC (test code = See_Comment [Automated 8183-2) message] The sy stem which generated this [...] RDW-SD (test code = 45.9 fL 38.5-51.6 49601-4) RDW-CV (test code = 15.4 % 12.1-15.4 788-0) PLT (test code = See_Comment H [Automated 777-3) message] The sy stem which generated this result transmitted reference range : 150 - 328 10*3/ ?L. The reference r meredith was not used to interpret this result as normal/abnormal . MPV (test code = 8.9 fL 9.8-13 L 77436-4) NRBC/100 WBC (test See_Comment [Automat ed code = 4156111450) message] The system which generated this result transmitted reference range : 0.0 - 10.0 /100 WBCs. The refer ence range was not u sed to interpret th is result as normal/abnormal . NRBC x10^3 (test code <0.01 See_Comment [Auto mated = 1195416739) message] The s ystem which generated this result transmitted reference range : 10*3/?L. The reference range was not used to interpret this result as normal/abnormal . GRAN MAT (NEUT) % 77.7 % (test code = 770-8) IMM GRAN % (test code 0.50 % = 2060838144) LYMPH % (test code = 11.8 % 736-9) MONO % (test code = 8.4 % 5905-5) EOS % (test code = 1.4 % 713-8) BASO % (test code = 0.2 % 706-2) GRAN MAT x10^3(ANC) 6.48 10*3/uL 1.99-6.95 (test code = 0412403216) IMM GRAN x10^3 (test 0.04 10*3/uL 0-0.06 code = 3457739948) LYMPH x10^3 (test code 0.98 10*3/uL 1.09-3.23 L = 731-0) MONO x10^3 (test code 0.70 10*3/uL 0.36-1.02 = 742-7) EOS x10^3 (test code = 0.12 10*3/uL 0.06-0.53 711-2) BASO x10^3 (test code <0.03 0.01-0.09 = 704-7) Lab Interpretation Abnormal (test code = 51319-6) [facility] Metabolic Panel (NA, K, CL, CO2, GLUCOSE, BUN, CREATININE, CA)2020-05-08 12:18:00 Test Item Value Reference Range Interpretation Comments NA (test code = 136 mmol/L 135-145 7240658319) K (test code = 4.1 mmol/L 3.5-5 6635475667) CL (test code = 102 mmol/L 98-108 6015133960) CO2 TOTAL (test code = 26 mmol/L 23-31 7182601305) AGAP (test code = 2-16 5399857188) BUN (test code = 18 mg/dL 7-23 0520040992) GLUCOSE (test code = 99 mg/dL 70-110 2876152232) CREATININE (test code = 0.63 mg/dL 0.6-1.25 3982761011) CALCIUM (test code = 8.4 mg/dL 8.6-10.6 L 5949266679) eGFR Calculation mL/min/1.73m2 (Non-) (test code = 7099646073) eGFR Calculation mL/min/1.73m2 () (test code = 1505921095) GILBERTO (test code = GILBERTO) Association of [...] tests). Lab Interpretation Abnormal (test code = 06470-4) [facility] [id number] 12:18:00 Test Item Value Reference Range Interpretation Comments MAGNESIUM (test code = 3568649042) 1.8 mg/dL 1.7-2.4 Lab Interpretation (test code = Normal 63660-4) [facility] HospitalPhosphorus [id number] 12:18:00 Test Item Value Reference Range Interpretation Comments PHOSPHORUS (test code = 1681204090) 3.2 mg/dL 2.5-5 Lab Interpretation (test code = Normal 99372-9) [facility] with Epbguhijylfi6547-37-91 11:50:00 Test Item Value Reference Range Interpretation Comments WBC (test code = See_Comment [Automated 9226-2) message] The sy stem which generated this result transmitted reference range : 4.20 - 10.70 10*3/?L. The reference range was not used to interpret this result as normal/abnormal . RBC (test code = See_Comment L [Automated 858-8) message] The sy stem which generated this [...] RDW-SD (test code = 46.9 fL 38.5-51.6 83957-7) RDW-CV (test code = 15.2 % 12.1-15.4 788-0) PLT (test code = See_Comment H [Automated 777-3) message] The sy stem which generated this result transmitted reference range : 150 - 328 10*3/ ?L. The reference r meredith was not used to interpret this result as normal/abnormal . MPV (test code = 9.0 fL 9.8-13 L 49068-3) NRBC/100 WBC (test See_Comment [Automat ed code = 4906112576) message] The system which generated this result transmitted reference range : 0.0 - 10.0 /100 WBCs. The refer ence range was not u sed to interpret th is result as normal/abnormal . NRBC x10^3 (test code <0.01 See_Comment [Auto mated = 9638818464) message] The s ystem which generated this result transmitted reference range : 10*3/?L. The reference range was not used to interpret this result as normal/abnormal . GRAN MAT (NEUT) % 76.3 % (test code = 770-8) IMM GRAN % (test code 0.70 % = 9685220844) LYMPH % (test code = 13.3 % 736-9) MONO % (test code = 8.4 % 5905-5) EOS % (test code = 1.1 % 713-8) BASO % (test code = 0.2 % 706-2) GRAN MAT x10^3(ANC) 6.93 10*3/uL 1.99-6.95 (test code = 8170573429) IMM GRAN x10^3 (test 0.06 10*3/uL 0-0.06 code = 5738544042) LYMPH x10^3 (test code 1.21 10*3/uL 1.09-3.23 = 731-0) MONO x10^3 (test code 0.76 10*3/uL 0.36-1.02 = 742-7) EOS x10^3 (test code = 0.10 10*3/uL 0.06-0.53 711-2) BASO x10^3 (test code <0.03 0.01-0.09 = 704-7) Lab Interpretation Abnormal (test code = 61903-4) [facility] HospitalIR D[facility] BY CATHETER PERITONEAL OR [id number] 13:09:04 Technically successful drainage catheter placement in [...] from those actually performing theprocedure. Please see [facility] for total sedation time. TECHNIQUE: The [...] of the tract was performed. A 14 Montenegrin locking pigtail michael inagecatheter was placed in the collection and samples were sent for laboratoryanalysis. The left upper quadrant collection was identified under ultrasound and CTguidance. A 17-gauge coaxial needle wasadvanced into the collection. AnAmplatz wire was advanced into the collection over the needle and serialdilatation of the tract was performed. A 12 Montenegrin locking pigtail drainagecatheter was placed within the collection and samples were sent forlaboratory analysis. The right lower quadrant collectionwas identified under ultrasound and CTguidance. A 17-gauge coaxial needle was advanced into the colle ction.Serial dilatation was performed over the Amplatz wire. A 14 Montenegrin lockingpigtail drainage catheter was placed within the collection. Proper positioning was confirmed with postprocedural CT imaging of theabdomen and pelvis. The catheters were sutured to the skin. ESTIMATED BLOOD LOSS: <3cc. CONDITION: Stable. FINDINGS: Initial CT images demonstrate multiple abscesses in the left upper, rightupper, and right lower quadrants. [facility], Radiant Results Inft User - 05/07/2020 [...] from those actually performing theprocedure. Please see [facility] for total sedation time. TECHNIQUE: The risks, benefits and alternatives were discussed and informedconsent was obtained. Prior to beginning the procedure, [place] Protocolwas performed to confirm the patient's identity [...] of the tract was performed. A 14 Montenegrin lockingpigtail drainagecatheter was placed in the collection and samples were sent for laboratoryanalysis.The left upper quadrant collection was identified under ultrasound and CTguidance. A 17-gauge coaxial needle was advanced into the collection. AnAmplatz wire was advanced into the collection over the needle and serialdilatation of the tract was performed. A 12 Montenegrin locking pigtail drainagecatheter wasplaced within the collection and samples were sent forlaboratory analysis.The right lower quadrant collection was identified under ultrasound and CTguidance. A 17-gauge coaxial needle was advanced intothe collection.Serial dilatation was performed over the Amplatz wire. A 14 Montenegrin lockingpigtail drainage catheter was placed within the [...] during the entire procedure and/orduring the botello components.[facility] (NA, K, CL, CO2, GLUCOSE, BUN, CREATININE, CA) 2020-05-07 11:49:00 Test Item Value Reference Range Interpretation Comments NA (test code = 132 mmol/L 135-145 L 0619875814) K (test code = 4.0 mmol/L 3.5-5 8342786629) CL (test code = 101 mmol/L 98-108 4033514434) CO2 TOTAL (test code = 23 mmol/L 23-31 7568462919) AGAP (test code = 2-16 9455608769) BUN (test code = 21 mg/dL 7-23 0917680939) GLUCOSE (test code = 98 mg/dL 70-110 3224118130) CREATININE (test code = 0.65 mg/dL 0.6-1.25 1349057079) CALCIUM (test code = 8.4 mg/dL 8.6-10.6 L 0186664403) eGFR Calculation mL/min/1.73m2 (Non-) (test code = 5955727588) eGFR Calculation mL/min/1.73m2 () (test code = 6936117775) GILBERTO (test code = GILBERTO) Association of [...] tests). Lab Interpretation Abnormal (test code = 89765-6) [facility] HospitalMagnesium [id number] 11:49:00 Test Item Value Reference Range Interpretation Comments MAGNESIUM (test code = 1309142202) 1.5 mg/dL 1.7-2.4 L Lab Interpretation (test code = Abnormal 96955-8) [facility] HospitalPhosphorus [id number] 11:49:00 Test Item Value Reference Range Interpretation Comments PHOSPHORUS (test code = 5277059792) 2.7 mg/dL 2.5-5 Lab Interpretation (test code = Normal 90615-9) [facility] with Bnhitrozfcvn1164-12-79 11:31:00 Test Item Value Reference Range Interpretation [...] RDW-SD (test code = 47.2 fL 38.5-51.6 66417-4) RDW-CV (test code = 15.3 % 12.1-15.4 788-0) PLT (test code = See_Comment H [Automated 777-3) message] The sy stem which generated this result transmitted reference range : 150 - 328 10*3/ ?L. The reference r meredith was not used to interpret this result as normal/abnormal . MPV (test code = 9.4 fL 9.8-13 L 65215-1) NRBC/100 WBC (test See_Comment [Automat ed code = 1350776847) message] The system which generated this result transmitted reference range : 0.0 - 10.0 /100 WBCs. The refer ence range was not u sed to interpret th is result as normal/abnormal . NRBC x10^3 (test code <0.01 See_Comment [Auto mated = 4455321532) message] The s ystem which generated this result transmitted reference range : 10*3/?L. The reference range was not used to interpret this result as normal/abnormal . GRAN MAT (NEUT) % 81.1 % (test code = 770-8) IMM GRAN % (test code 0.80 % = 2454267244) LYMPH % (test code = 9.5 % 736-9) MONO % (test code = 7.8 % 5905-5) EOS % (test code = 0.6 % 713-8) BASO % (test code = 0.2 % 706-2) GRAN MAT x10^3(ANC) 8.26 10*3/uL 1.99-6.95 H (test code = 8540028154) IMM GRAN x10^3 (test 0.08 10*3/uL 0-0.06 H code = 5587107470) LYMPH x10^3 (test code 0.97 10*3/uL 1.09-3.23 L = 731-0) MONO x10^3 (test code 0.79 10*3/uL 0.36-1.02 = 742-7) EOS x10^3 (test code = 0.06 10*3/uL 0.06-0.53 711-2) BASO x10^3 (test code <0.03 0.01-0.09 = 704-7) Lab Interpretation Abnormal (test code = 62831-1) [facility] Metabolic Panel (NA, K, CL, CO2, GLUCOSE, BUN, CREATININE, CA)2020-05-06 15:02:00 Test Item Value Reference Range Interpretation Comments NA (test code = 134 mmol/L 135-145 L 5160058542) K (test code = 4.3 mmol/L 3.5-5 2226215069) CL (test code = 105 mmol/L 98-108 6981927731) CO2 TOTAL (test code = 23 mmol/L 23-31 5674438066) AGAP (test code = 2-16 1679565665) BUN (test code = 18 mg/dL 7-23 7789587799) GLUCOSE (test code = 96 mg/dL 70-110 8951222741) CREATININE (test code = 0.67 mg/dL 0.6-1.25 6868258170) CALCIUM (test code = 8.5 mg/dL 8.6-10.6 L 6912680730) eGFR Calculation mL/min/1.73m2 (Non-) (test code = 0682643434) eGFR Calculation mL/min/1.73m2 () (test code = 5239150968) GILBERTO (test code = GILBERTO) Association of [...] tests). Lab Interpretation Abnormal (test code = 04664-7) [facility] HospitalMagnesium Hqrya5843-55-81 15:02:00 Test Item Value Reference Range Interpretation Comments MAGNESIUM (test code = 2040479405) 1.8 mg/dL 1.7-2.4 Lab Interpretation (test code = Normal 02997-6) [facility] HospitalPhosphorus [id number] 15:02:00 Test Item Value Reference Range Interpretation Comments PHOSPHORUS (test code = 3585625703) 3.2 mg/dL 2.5-5 Lab Interpretation (test code = Normal 13444-2) [facility] with Ctuqvynmjmjd4907-42-71 10:41:00 Test Item Value Reference Range Interpretation [...] RDW-SD (test code = 47.0 fL 38.5-51.6 03349-7) RDW-CV (test code = 15.2 % 12.1-15.4 788-0) PLT (test code = See_Comment H [Automated 777-3) message] The sy stem which generated this result transmitted reference range : 150 - 328 10*3/ ?L. The reference r meredith was not used to interpret this result as normal/abnormal . MPV (test code = 9.1 fL 9.8-13 L 10647-8) NRBC/100 WBC (test See_Comment [Automat ed code = 2093248478) message] The system which generated this result transmitted reference range : 0.0 - 10.0 /100 WBCs. The refer ence range was not u sed to interpret th is result as normal/abnormal . NRBC x10^3 (test code <0.01 See_Comment [Auto mated = 0159412561) message] The s ystem which generated this result transmitted reference range : 10*3/?L. The reference range was not used to interpret this result as normal/abnormal . GRAN MAT (NEUT) % 77.3 % (test code = 770-8) IMM GRAN % (test code 0.60 % = 5476642776) LYMPH % (test code = 11.6 % 736-9) MONO % (test code = 9.5 % 5905-5) EOS % (test code = 0.8 % 713-8) BASO % (test code = 0.2 % 706-2) GRAN MAT x10^3(ANC) 6.69 10*3/uL 1.99-6.95 (test code = 9476541395) IMM GRAN x10^3 (test 0.05 10*3/uL 0-0.06 code = 9076980097) LYMPH x10^3 (test code 1.00 10*3/uL 1.09-3.23 L = 731-0) MONO x10^3 (test code 0.82 10*3/uL 0.36-1.02 = 742-7) EOS x10^3 (test code = 0.07 10*3/uL 0.06-0.53 711-2) BASO x10^3 (test code <0.03 0.01-0.09 = 704-7) Lab Interpretation Abnormal (test code = 55066-2) [facility] HospitalPrepar Packed RBC (in units), 1 Units 2020-05-05 15:59:33 Test Item Value Reference Range Interpretation Comments Cross Match Result Compatible (test code = 4409) ISBT Blood Type Code (test code = 562677) Unit Blood Type (test O Pos code = 4410) Unit Number (test [id number] code = 4411) Blood Expiration Date & Time (test code = 873214) Status Information Issued (test code = 4412) Product Red Blood Cells Identification (test code = 4413) Product Code (test [id number] Performed at [facility] code = 4414) Laboratory Services - [facility] Blood [address] [place] [address]Koto Free: [phone] A No. [id number] [facility] HospitalType and Screen - ONCE Tixbser7245-65-63 11:34:29 Test Item Value Reference Range Interpretation Comments ABO & RH (test code O POSITIVE Performe d at [facility] = 20) Laboratory Serv [facility] Blood Bank3 [address] [facility] [address]Fhlh Free: [phone] A No. [id number] IAT (test code = Negative Performed a t [facility] 1185) Laboratory Serv [facility] Blood Bank3 [facility] [address]Chsb Free: [phone] A No. [id number] [facility] HospitalPREALBUMIN2020-09-12 10:19:00 Test Item Value Reference Range Interpretation Comments PALB (test code = 43866-4) 8.0 mg/dL 18-45 L Lab Interpretation (test code = Abnormal 04543-6) [facility] Metabolic Panel (NA, K, CL, CO2, GLUCOSE, BUN, CREATININE, CA)2020-05-05 10:12:00 Test Item Value Reference Range Interpretation Comments NA (test code = 135 mmol/L 135-145 0363961345) K (test code = 4.1 mmol/L 3.5-5 3574241212) CL (test code = 106 mmol/L 98-108 7677240027) CO2 TOTAL (test code = 22 mmol/L 23-31 L 3918313195) AGAP (test code = 2-16 7762989967) BUN (test code = 25 mg/dL 7-23 H 1027196224) GLUCOSE (test code = 91 mg/dL 70-110 6650966875) CREATININE (test code = 0.68 mg/dL 0.6-1.25 9180934234) CALCIUM (test code = 7.4 mg/dL 8.6-10.6 L 1708126438) eGFR Calculation mL/min/1.73m2 (Non-) (test code = 0100461754) eGFR Calculation mL/min/1.73m2 () (test code = 4720125186) GILBERTO (test code = GILBERTO) Association of [...] tests). Lab Interpretation Abnormal (test code = 29414-6) [facility] HospitalMagnesium Xkvdp3769-75-64 10:12:00 Test Item Value Reference Range Interpretation Comments MAGNESIUM (test code = 6534124464) 1.8 mg/dL 1.7-2.4 Lab Interpretation (test code = Normal 13236-6) [facility] HospitalPhosphorus [id number] 10:12:00 Test Item Value Reference Range Interpretation Comments PHOSPHORUS (test code = 4982259240) 3.1 mg/dL 2.5-5 Lab Interpretation (test code = Normal 14728-1) [facility] Hospital[facility] with Kimffaegfnbv7856-26-58 09:18:00 Test Item Value Reference Range Interpretation Comments WBC (test code = See_Comment [Automated 8748-2) message] The sy stem which generated this result transmitted reference range : 4.20 - 10.70 10*3/?L. The reference range was not used to interpret this result as normal/abnormal . RBC (test code = See_Comment L [Automated 997-8) message] The sy stem which generated this [...] RDW-SD (test code = 48.4 fL 38.5-51.6 13087-7) RDW-CV (test code = 15.7 % 12.1-15.4 H 788-0) PLT (test code = See_Comment H [Automated 777-3) message] The sy stem which generated this result transmitted reference range : 150 - 328 10*3/ ?L. The reference r meredith was not used to interpret this result as normal/abnormal . MPV (test code = 9.1 fL 9.8-13 L 88345-4) NRBC/100 WBC (test See_Comment [Automat ed code = 6696549120) message] The system which generated this result transmitted reference range : 0.0 - 10.0 /100 WBCs. The refer ence range was not u sed to interpret th is result as normal/abnormal . NRBC x10^3 (test code <0.01 See_Comment [Auto mated = 3435829559) message] The s ystem which generated this result transmitted reference range : 10*3/?L. The reference range was not used to interpret this result as normal/abnormal . GRAN MAT (NEUT) % 79.0 % (test code = 770-8) IMM GRAN % (test code 0.70 % = 6370632504) LYMPH % (test code = 10.6 % 736-9) MONO % (test code = 8.9 % 5905-5) EOS % (test code = 0.5 % 713-8) BASO % (test code = 0.3 % 706-2) GRAN MAT x10^3(ANC) 7.81 10*3/uL 1.99-6.95 H (test code = 4993288184) IMM GRAN x10^3 (test 0.07 10*3/uL 0-0.06 H code = 2463206719) LYMPH x10^3 (test code 1.05 10*3/uL 1.09-3.23 L = 731-0) MONO x10^3 (test code 0.88 10*3/uL 0.36-1.02 = 742-7) EOS x10^3 (test code = 0.05 10*3/uL 0.06-0.53 L 711-2) BASO x10^3 (test code 0.03 10*3/uL 0.01-0.09 = 704-7) Lab Interpretation Abnormal (test code = 58564-3) [facility] HospitalURINALYSIS2020-09-12 06:03:00 Test Item Value Reference Range Interpretation Comments APPEARANCE (test code = Hazy Clear A 1570083621) COLOR (test code = Yellow Yellow 9704405993) PH (test code = 4.8-8.0 9895093202) SP GRAVITY (test code = 1.003-1.030 H 5710916132) GLU U QUAL (test code = Normal Normal 7681044283) BLOOD (test code = Negative Negative 5475209906) KETONES (test code = Negative Negative 0579947679) PROTEIN (test code = Negative Negative 2887-8) UROBILIN (test code = Normal Normal 8813421375) BILIRUBIN (test code = Negative Negative 5871522353) NITRITE (test code = Negative Negative 9222541594) LEUK ROGER (test code = Negative Negative 7671432628) RBC/HPF (test code = See_Comment H [Autom ated message] 2380860039) The system W[employer] generated this result transmitted ref erence range: 0 - 3 HP F. The reference range was not used to int erpret this result as normal/abnormal . WBC/HPF (test code = See_Comment [Autom ated message] 9650429885) The system [employer] generated this result transmitted ref erence range: 0 - 5 HP F. The reference range was not used to int erpret this result as normal/abnormal . BACTERIA (test code = Few Negative A 4780526829) MUCOUS (test code = Slight Negative LPF A 7384823591) CA OXALATE (test code = See_Comment H [Au tomated message] 7283139830) The system [employer] generated this result transmitted ref erence range: <=1 HPF. The reference range was not used to int erpret this result as normal/abnormal . Lab Interpretation (test Abnormal code = 07136-2) [facility] HospitalCT ABDOMEN PELVIS W [id number] 04:56:59 1. ?Interval removal of left subdiaphragmatic, [...] reviewed this study and agree with the abovereport.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 It is used under Emergency Use [...] indicated. Lab Interpretation Normal (test code = 13620-5) [facility]. METABOLIC PANEL (80433)2020-05-05 03:02:00 Test Item Value Reference Range Interpretation Comments NA (test code = 134 mmol/L 135-145 L 8399679033) K (test code = 4.7 mmol/L 3.5-5 6673011287) CL (test code = 99 mmol/L 98-108 0768471369) CO2 TOTAL (test code = 24 mmol/L 23-31 1450551491) AGAP (test code = 2-16 7268075167) BUN (test code = 37 mg/dL 7-23 H 1546615851) GLUCOSE (test code = 105 mg/dL 70-110 0405043599) CREATININE (test code = 0.94 mg/dL 0.6-1.25 2040801351) TOTAL BILI (test code = 0.5 mg/dL 0.1-1.6 7601526431) CALCIUM (test code = 8.8 mg/dL 8.6-10.6 1483560254) T PROTEIN (test code = 6.2 g/dL 6.3-8.2 L 8294903870) ALBUMIN (test code = 3.0 g/dL 3.5-5 L 3604789355) ALK PHOS (test code = 150 U/L 34-122 H 5491641978) ALTv (test code = 28 U/L 5-50 1742-6) AST(SGOT) (test code = 23 U/L 13-40 5836250843) eGFR Calculation mL/min/1.73m2 (Non-) (test code = 4108969341) eGFR Calculation mL/min/1.73m2 () (test code = 8385083546) GILBERTO (test code = GILBERTO) Association of [...] tests). Lab Interpretation Abnormal (test code = 40698-2) [facility] HospitalLIPASE2020-09-12 03:02:00 Test Item Value Reference Range Interpretation Comments LIPASE (test code = 4134879138) 323 U/L 0-220 H Lab Interpretation (test code = Abnormal 91470-6) [facility] HospitalCB WITH [id number] 02:43:00 Test Item Value Reference Range Interpretation [...] RDW-SD (test code = 45.7 fL 38.5-51.6 69911-5) RDW-CV (test code = 15.4 % 12.1-15.4 788-0) PLT (test code = See_Comment H [Automated 777-3) message] The system which generated this result transmit dain reference range : 150 - 328 10*3/ ?L. The reference range was not u sed to interpret th is result as normal/abnormal . MPV (test code = 8.9 fL 9.8-13 L 11532-1) NRBC/100 WBC (test See_Comment [Automat ed code = 3837542612) message] The system which generated this result transmit dain reference range : 0.0 - 10.0 /100 WBCs. The reference range was not used to interpret this result as normal/abnormal . NRBC x10^3 (test code <0.01 See_Comment [Auto mated = 2841038239) message] The system which generated this result transmit dain reference range : 10*3/?L. The reference range was not used to interpret this result as normal/abnormal . GRAN MAT (NEUT) % 82.6 % (test code = 770-8) IMM GRAN % (test code 0.60 % = 9974077319) LYMPH % (test code = 8.1 % 736-9) MONO % (test code = 8.1 % 5905-5) EOS % (test code = 0.4 % 713-8) BASO % (test code = 0.2 % 706-2) GRAN MAT x10^3(ANC) 11.18 10*3/uL 1.99-6.95 H (test code = 4358848520) IMM GRAN x10^3 (test 0.08 10*3/uL 0-0.06 H code = 1536219990) LYMPH x10^3 (test code 1.10 10*3/uL 1.09-3.23 = 731-0) MONO x10^3 (test code 1.09 10*3/uL 0.36-1.02 H = 742-7) EOS x10^3 (test code = 0.05 10*3/uL 0.06-0.53 L 711-2) BASO x10^3 (test code 0.03 10*3/uL 0.01-0.09 = 704-7) Lab Interpretation Abnormal (test code = 05410-3) [facility] METABOLIC PANEL (NA, K, CL, CO2, GLUCOSE, BUN, CREATININE, CA)2020-05-01 12:25:00 Test Item Value Reference Range Interpretation Comments NA (test code = 131 mmol/L 135-145 L 6043150324) K (test code = 4.7 mmol/L 3.5-5 2618172730) CL (test code = 97 mmol/L 98-108 L 9254714691) CO2 TOTAL (test code = 25 mmol/L 23-31 2353669019) AGAP (test code = 2-16 6810861221) BUN (test code = 30 mg/dL 7-23 H 3781819026) GLUCOSE (test code = 111 mg/dL 70-110 H 0109880940) CREATININE (test code = 0.69 mg/dL 0.6-1.25 6484110517) CALCIUM (test code = 9.3 mg/dL 8.6-10.6 9629667677) eGFR Calculation mL/min/1.73m2 (Non-) (test code = 0789736570) eGFR Calculation mL/min/1.73m2 () (test code = 9436985191) GILBERTO (test code = GILBERTO) Association of [...] tests). Lab Interpretation Abnormal (test code = 07674-6) [facility] HospitalMAGNESIUM2020-09-08 12:07:00 Test Item Value Reference Range Interpretation Comments MAGNESIUM (test code = 7745716773) 2.3 mg/dL 1.7-2.4 Lab Interpretation (test code = Normal 76449-2) [facility] HospitalPHOSPHORUS2020-09-08 12:07:00 Test Item Value Reference Range Interpretation Comments PHOSPHORUS (test code = 9635172349) 4.6 mg/dL 2.5-5 Lab Interpretation (test code = Normal 30686-5) [facility] HospitalCB WITH [id number] 11:44:00 Test Item Value Reference Range Interpretation Comments WBC (test code = See_Comment H [Automated 3890-2) message] The system which generated this result [...] RDW-SD (test code = 44.9 fL 38.5-51.6 95008-7) RDW-CV (test code = 14.8 % 12.1-15.4 788-0) PLT (test code = See_Comment H [Automated 777-3) message] The system which generated this result transmit dain reference range : 150 - 328 10*3/ ?L. The reference range was not u sed to interpret th is result as normal/abnormal . MPV (test code = 9.1 fL 9.8-13 L 01884-5) NRBC/100 WBC (test See_Comment [Automat ed code = 4792061744) message] The system which generated this result transmit dain reference range : 0.0 - 10.0 /100 WBCs. The reference range was not used to interpret this result as normal/abnormal . NRBC x10^3 (test code <0.01 See_Comment [Auto mated = 0721669869) message] The system which generated this result transmit dain reference range : 10*3/?L. The reference range was not used to interpret this result as normal/abnormal . GRAN MAT (NEUT) % 81.4 % (test code = 770-8) IMM GRAN % (test code 0.70 % = 2606188183) LYMPH % (test code = 8.7 % 736-9) MONO % (test code = 8.5 % 5905-5) EOS % (test code = 0.3 % 713-8) BASO % (test code = 0.4 % 706-2) GRAN MAT x10^3(ANC) 12.01 10*3/uL 1.99-6.95 H (test code = 8219067601) IMM GRAN x10^3 (test 0.10 10*3/uL 0-0.06 H code = 0004912792) LYMPH x10^3 (test code 1.28 10*3/uL 1.09-3.23 = 731-0) MONO x10^3 (test code 1.25 10*3/uL 0.36-1.02 H = 742-7) EOS x10^3 (test code = 0.04 10*3/uL 0.06-0.53 L 711-2) BASO x10^3 (test code 0.06 10*3/uL 0.01-0.09 = 704-7) Lab Interpretation Abnormal (test code = 89628-8) [facility] METABOLIC PANEL (NA, K, CL, CO2, GLUCOSE, BUN, CREATININE, CA)2020-04-29 12:08:00 Test Item Value Reference Range Interpretation Comments NA (test code = 130 mmol/L 135-145 L 5658325900) K (test code = 5.0 mmol/L 3.5-5 3872331647) CL (test code = 94 mmol/L 98-108 L 1326430713) CO2 TOTAL (test code = 27 mmol/L 23-31 5280466298) AGAP (test code = 2-16 2178051472) BUN (test code = 35 mg/dL 7-23 H 0470220887) GLUCOSE (test code = 116 mg/dL 70-110 H 6134985740) CREATININE (test code = 0.76 mg/dL 0.6-1.25 7929174337) CALCIUM (test code = 9.0 mg/dL 8.6-10.6 0126800942) eGFR Calculation mL/min/1.73m2 (Non-) (test code = 7290831552) eGFR Calculation mL/min/1.73m2 () (test code = 5044192886) GILBERTO (test code = GILBERTO) Association of [...] tests). Lab Interpretation Abnormal (test code = 27297-6) [facility]:00 Test Item Value Reference Range Interpretation Comments MAGNESIUM (test code = 8079936080) 2.3 mg/dL 1.7-2.4 Lab Interpretation (test code = Normal 95942-1) [facility] 12:01:00 Test Item Value Reference Range Interpretation Comments PHOSPHORUS (test code = 3051173684) 4.5 mg/dL 2.5-5 Lab Interpretation (test code = Normal 14481-6) [facility] WITH [id number] 11:52:00 Test Item Value Reference Range Interpretation Comments WBC (test code = See_Comment H [Automated 0790-2) message] The system which generated this result transmit dain reference range : 4.20 - 10.70 10*3/?L. The reference range was not used to interpret this result as normal/abnormal . RBC (test code = See_Comment L [Automated 429-8) message] The system which generated this result [...] RDW-SD (test code = 44.4 fL 38.5-51.6 32978-0) RDW-CV (test code = 14.7 % 12.1-15.4 788-0) PLT (test code = See_Comment H [Automated 777-3) message] The system which generated this result transmit dain reference range : 150 - 328 10*3/ ?L. The reference range was not u sed to interpret th is result as normal/abnormal . MPV (test code = 9.1 fL 9.8-13 L 84293-9) NRBC/100 WBC (test See_Comment [Automat ed code = 0254877820) message] The system which generated this result transmit dain reference range : 0.0 - 10.0 /100 WBCs. The reference range was not used to interpret this result as normal/abnormal . NRBC x10^3 (test code <0.01 See_Comment [Auto mated = 2237595419) message] The system which generated this result transmit dain reference range : 10*3/?L. The reference range was not used to interpret this result as normal/abnormal . GRAN MAT (NEUT) % 82.5 % (test code = 770-8) IMM GRAN % (test code 1.30 % = 9539618465) LYMPH % (test code = 7.1 % 736-9) MONO % (test code = 8.5 % 5905-5) EOS % (test code = 0.3 % 713-8) BASO % (test code = 0.3 % 706-2) GRAN MAT x10^3(ANC) 14.27 10*3/uL 1.99-6.95 H (test code = 6595648629) IMM GRAN x10^3 (test 0.23 10*3/uL 0-0.06 H code = 5040357143) LYMPH x10^3 (test code 1.23 10*3/uL 1.09-3.23 = 731-0) MONO x10^3 (test code 1.47 10*3/uL 0.36-1.02 H = 742-7) EOS x10^3 (test code = 0.05 10*3/uL 0.06-0.53 L 711-2) BASO x10^3 (test code 0.06 10*3/uL 0.01-0.09 = 704-7) Lab Interpretation Abnormal (test code = 70101-7) [facility] (NA, K, CL, CO2, GLUCOSE, BUN, CREATININE, CA)2020-04-28 10:15:00 Test Item Value Reference Range Interpretation Comments NA (test code = 130 mmol/L 135-145 L 3526922620) K (test code = 5.3 mmol/L 3.5-5 H 7560930092) CL (test code = 91 mmol/L 98-108 L 8732211876) CO2 TOTAL (test code = 29 mmol/L 23-31 2867949781) AGAP (test code = 2-16 1416552071) BUN (test code = 32 mg/dL 7-23 H 5526689432) GLUCOSE (test code = 101 mg/dL 70-110 7758523414) CREATININE (test code = 0.74 mg/dL 0.6-1.25 8731751996) CALCIUM (test code = 9.5 mg/dL 8.6-10.6 8665690695) eGFR Calculation mL/min/1.73m2 (Non-) (test code = 4849040875) eGFR Calculation mL/min/1.73m2 () (test code = 2214466139) GILBERTO (test code = GILBERTO) Association of [...] tests). Lab Interpretation Abnormal (test code = 03509-9) [facility]2020-09-05 10:12:00 Test Item Value Reference Range Interpretation Comments MAGNESIUM (test code = 4509057900) 2.3 mg/dL 1.7-2.4 Lab Interpretation (test code = Normal 29961-7) [facility] WITH [id number] 09:55:00 Test Item Value Reference Range Interpretation Comments WBC (test code = See_Comment H [Automated 1290-2) message] The system which generated this result [...] RDW-SD (test code = 45.1 fL 38.5-51.6 85680-5) RDW-CV (test code = 14.7 % 12.1-15.4 788-0) PLT (test code = See_Comment H [Automated 777-3) message] The system which generated this result transmit dain reference range : 150 - 328 10*3/ ?L. The reference range was not u sed to interpret th is result as normal/abnormal . MPV (test code = 9.5 fL 9.8-13 L 22982-9) NRBC/100 WBC (test See_Comment [Automat ed code = 2658110806) message] The system which generated this result transmit dain reference range : 0.0 - 10.0 /100 WBCs. The reference range was not used to interpret this result as normal/abnormal . NRBC x10^3 (test code <0.01 See_Comment [Auto mated = 2084692078) message] The system which generated this result transmit dain reference range : 10*3/?L. The reference range was not used to interpret this result as normal/abnormal . GRAN MAT (NEUT) % 81.1 % (test code = 770-8) IMM GRAN % (test code 1.40 % = 0851251422) LYMPH % (test code = 8.6 % 736-9) MONO % (test code = 7.9 % 5905-5) EOS % (test code = 0.5 % 713-8) BASO % (test code = 0.5 % 706-2) GRAN MAT x10^3(ANC) 14.68 10*3/uL 1.99-6.95 H (test code = 5850332410) IMM GRAN x10^3 (test 0.25 10*3/uL 0-0.06 H code = 7826414459) LYMPH x10^3 (test code 1.55 10*3/uL 1.09-3.23 = 731-0) MONO x10^3 (test code 1.43 10*3/uL 0.36-1.02 H = 742-7) EOS x10^3 (test code = 0.09 10*3/uL 0.06-0.53 711-2) BASO x10^3 (test code 0.09 10*3/uL 0.01-0.09 = 704-7) Lab Interpretation Abnormal (test code = 65753-9) [facility] METABOLIC PANEL (NA, K, CL, CO2, GLUCOSE, BUN, CREATININE, CA)2020-04-27 10:20:00 Test Item Value Reference Range Interpretation Comments NA (test code = 130 mmol/L 135-145 L 9177071997) K (test code = 4.5 mmol/L 3.5-5 8475834305) CL (test code = 93 mmol/L 98-108 L 6794958581) CO2 TOTAL (test code = 28 mmol/L 23-31 3758738259) AGAP (test code = 2-16 1869618972) BUN (test code = 31 mg/dL 7-23 H 5319543792) GLUCOSE (test code = 102 mg/dL 70-110 2131205264) CREATININE (test code = 0.81 mg/dL 0.6-1.25 6358005897) CALCIUM (test code = 9.0 mg/dL 8.6-10.6 4959926032) eGFR Calculation mL/min/1.73m2 (Non-) (test code = 3954123627) eGFR Calculation mL/min/1.73m2 () (test code = 4922787501) GILBERTO (test code = GILBERTO) Association of [...] tests). Lab Interpretation Abnormal (test code = 68100-4) [facility]2020-09-04 10:20:00 Test Item Value Reference Range Interpretation Comments MAGNESIUM (test code = 9968018807) 2.2 mg/dL 1.7-2.4 Lab Interpretation (test code = Normal 01334-3) [facility] WITH [id number] 09:49:00 Test Item Value Reference Range Interpretation Comments WBC (test code = See_Comment H [Automated 5590-2) message] The system which generated this result transmit dain reference range : 4.20 - 10.70 10*3/?L. The reference range was not used to interpret this result as normal/abnormal . RBC (test code = See_Comment L [Automated 729-8) message] The system which generated this result [...] RDW-SD (test code = 45.2 fL 38.5-51.6 82078-6) RDW-CV (test code = 14.5 % 12.1-15.4 788-0) PLT (test code = See_Comment H [Automated 777-3) message] The system which generated this result transmit dain reference range : 150 - 328 10*3/ ?L. The reference range was not u sed to interpret th is result as normal/abnormal . MPV (test code = 9.0 fL 9.8-13 L 47459-9) NRBC/100 WBC (test See_Comment [Automat ed code = 0674452418) message] The system which generated this result transmit dain reference range : 0.0 - 10.0 /100 WBCs. The reference range was not used to interpret this result as normal/abnormal . NRBC x10^3 (test code <0.01 See_Comment [Auto mated = 8444694117) message] The system which generated this result transmit dain reference range : 10*3/?L. The reference range was not used to interpret this result as normal/abnormal . GRAN MAT (NEUT) % 80.9 % (test code = 770-8) IMM GRAN % (test code 1.30 % = 5067621498) LYMPH % (test code = 8.9 % 736-9) MONO % (test code = 7.7 % 5905-5) EOS % (test code = 0.6 % 713-8) BASO % (test code = 0.6 % 706-2) GRAN MAT x10^3(ANC) 13.18 10*3/uL 1.99-6.95 H (test code = 8093126363) IMM GRAN x10^3 (test 0.21 10*3/uL 0-0.06 H code = 1506862443) LYMPH x10^3 (test code 1.45 10*3/uL 1.09-3.23 = 731-0) MONO x10^3 (test code 1.26 10*3/uL 0.36-1.02 H = 742-7) EOS x10^3 (test code = 0.09 10*3/uL 0.06-0.53 711-2) BASO x10^3 (test code 0.10 10*3/uL 0.01-0.09 H = 704-7) Lab Interpretation Abnormal (test code = 37016-4) [facility] METABOLIC PANEL (NA, K, CL, CO2, GLUCOSE, BUN, CREATININE, CA)2020-04-26 11:29:00 Test Item Value Reference Range Interpretation Comments NA (test code = 133 mmol/L 135-145 L 4211961983) K (test code = 4.7 mmol/L 3.5-5 1330985732) CL (test code = 98 mmol/L 98-108 4295051825) CO2 TOTAL (test code = 25 mmol/L 23-31 7520373791) AGAP (test code = 2-16 3185880101) BUN (test code = 26 mg/dL 7-23 H 3775191351) GLUCOSE (test code = 97 mg/dL 70-110 7789002211) CREATININE (test code = 0.73 mg/dL 0.6-1.25 8695304748) CALCIUM (test code = 8.7 mg/dL 8.6-10.6 6478880620) eGFR Calculation mL/min/1.73m2 (Non-) (test code = 3040891961) eGFR Calculation mL/min/1.73m2 () (test code = 6552265258) GILBERTO (test code = GILBERTO) Association of [...] tests). Lab Interpretation Abnormal (test code = 51812-6) [facility] 11:29:00 Test Item Value Reference Range Interpretation Comments MAGNESIUM (test code = 5441851766) 2.1 mg/dL 1.7-2.4 Lab Interpretation (test code = Normal 12341-5) [facility] WITH [id number] 10:27:00 Test Item Value Reference Range Interpretation [...] RDW-SD (test code = 45.4 fL 38.5-51.6 39019-7) RDW-CV (test code = 14.5 % 12.1-15.4 788-0) PLT (test code = See_Comment H [Automated 777-3) message] The system which generated this result transmit dain reference range : 150 - 328 10*3/ ?L. The reference range was not u sed to interpret th is result as normal/abnormal . MPV (test code = 9.3 fL 9.8-13 L 70443-4) NRBC/100 WBC (test See_Comment [Automat ed code = 8818978536) message] The system which generated this result transmit dain reference range : 0.0 - 10.0 /100 WBCs. The reference range was not used to interpret this result as normal/abnormal . NRBC x10^3 (test code <0.01 See_Comment [Auto mated = 6973584526) message] The system which generated this result transmit dain reference range : 10*3/?L. The reference range was not used to interpret this result as normal/abnormal . GRAN MAT (NEUT) % 79.6 % (test code = 770-8) IMM GRAN % (test code 1.30 % = 8136904243) LYMPH % (test code = 8.6 % 736-9) MONO % (test code = 9.3 % 5905-5) EOS % (test code = 0.8 % 713-8) BASO % (test code = 0.4 % 706-2) GRAN MAT x10^3(ANC) 12.46 10*3/uL 1.99-6.95 H (test code = 5463996370) IMM GRAN x10^3 (test 0.21 10*3/uL 0-0.06 H code = 2702136061) LYMPH x10^3 (test code 1.34 10*3/uL 1.09-3.23 = 731-0) MONO x10^3 (test code 1.45 10*3/uL 0.36-1.02 H = 742-7) EOS x10^3 (test code = 0.13 10*3/uL 0.06-0.53 711-2) BASO x10^3 (test code 0.07 10*3/uL 0.01-0.09 = 704-7) Lab Interpretation Abnormal (test code = 33943-6) [facility] METABOLIC PANEL (NA, K, CL, CO2, GLUCOSE, BUN, CREATININE, CA)2020-04-25 10:03:00 Test Item Value Reference Range Interpretation Comments NA (test code = 133 mmol/L 135-145 L 3800846600) K (test code = 4.6 mmol/L 3.5-5 5593679953) CL (test code = 96 mmol/L 98-108 L 5380047753) CO2 TOTAL (test code = 27 mmol/L 23-31 6579511763) AGAP (test code = 2-16 1073300394) BUN (test code = 21 mg/dL 7-23 1882372074) GLUCOSE (test code = 108 mg/dL 70-110 5440646433) CREATININE (test code = 0.76 mg/dL 0.6-1.25 1167569162) CALCIUM (test code = 9.5 mg/dL 8.6-10.6 5735073210) eGFR Calculation mL/min/1.73m2 (Non-) (test code = 3838218012) eGFR Calculation mL/min/1.73m2 () (test code = 2233052087) GILBERTO (test code = GILBERTO) Association of [...] tests). Lab Interpretation Abnormal (test code = 98322-5) [facility] 10:03:00 Test Item Value Reference Range Interpretation Comments MAGNESIUM (test code = 8685339761) 2.4 mg/dL 1.7-2.4 Lab Interpretation (test code = Normal 73877-3) [facility] WITH [id number] 09:48:00 Test Item Value Reference Range Interpretation [...] RDW-SD (test code = 45.7 fL 38.5-51.6 14941-4) RDW-CV (test code = 14.3 % 12.1-15.4 788-0) PLT (test code = See_Comment HH [Automated 777-3) message] The system which generated this result transmit dain reference range : 150 - 328 10*3/ ?L. The reference range was not u sed to interpret th is result as normal/abnormal . MPV (test code = 9.1 fL 9.8-13 L 81866-8) NRBC/100 WBC (test See_Comment [Automat ed code = 2427795283) message] The system which generated this result transmit dain reference range : 0.0 - 10.0 /100 WBCs. The reference range was not used to interpret this result as normal/abnormal . NRBC x10^3 (test code <0.01 See_Comment [Auto mated = 5100977997) message] The system which generated this result transmit dain reference range : 10*3/?L. The reference range was not used to interpret this result as normal/abnormal . GRAN MAT (NEUT) % 78.9 % (test code = 770-8) IMM GRAN % (test code 1.70 % = 6539863222) LYMPH % (test code = 8.7 % 736-9) MONO % (test code = 9.1 % 5905-5) EOS % (test code = 0.9 % 713-8) BASO % (test code = 0.7 % 706-2) GRAN MAT x10^3(ANC) 11.96 10*3/uL 1.99-6.95 H (test code = 7161495241) IMM GRAN x10^3 (test 0.26 10*3/uL 0-0.06 H code = 6758326168) LYMPH x10^3 (test code 1.32 10*3/uL 1.09-3.23 = 731-0) MONO x10^3 (test code 1.38 10*3/uL 0.36-1.02 H = 742-7) EOS x10^3 (test code = 0.13 10*3/uL 0.06-0.53 711-2) BASO x10^3 (test code 0.11 10*3/uL 0.01-0.09 H = 704-7) Lab Interpretation Abnormal (test code = 70452-8) [facility] WITH [id number] 10:40:00 Test Item Value Reference Range Interpretation [...] RDW-SD (test code = 46.3 fL 38.5-51.6 01995-3) RDW-CV (test code = 14.5 % 12.1-15.4 788-0) PLT (test code = See_Comment HH [Automated 777-3) message] The sy stem which generated this result transmitted reference range : 150 - 328 10*3/ ?L. The reference r meredith was not used to interpret this result as normal/abnormal . MPV (test code = 9.1 fL 9.8-13 L 83366-5) NRBC/100 WBC (test See_Comment [Automat ed code = 4400477857) message] The system which generated this result transmitted reference range : 0.0 - 10.0 /100 WBCs. The refer ence range was not u sed to interpret th is result as normal/abnormal . NRBC x10^3 (test code <0.01 See_Comment [Auto mated = 8848110883) message] The s ystem which generated this result transmitted reference range : 10*3/?L. The reference range was not used to interpret this result as normal/abnormal . GRAN MAT (NEUT) % 74.7 % (test code = 770-8) IMM GRAN % (test code 2.00 % = 7339022047) LYMPH % (test code = 10.0 % 736-9) MONO % (test code = 11.4 % 5905-5) EOS % (test code = 1.3 % 713-8) BASO % (test code = 0.6 % 706-2) GRAN MAT x10^3(ANC) 9.44 10*3/uL 1.99-6.95 H (test code = 3782660279) IMM GRAN x10^3 (test 0.25 10*3/uL 0-0.06 H code = 1972365239) LYMPH x10^3 (test code 1.26 10*3/uL 1.09-3.23 = 731-0) MONO x10^3 (test code 1.44 10*3/uL 0.36-1.02 H = 742-7) EOS x10^3 (test code = 0.16 10*3/uL 0.06-0.53 711-2) BASO x10^3 (test code 0.07 10*3/uL 0.01-0.09 = 704-7) Lab Interpretation Abnormal (test code = 74173-1) [facility] METABOLIC PANEL (NA, K, CL, CO2, GLUCOSE, BUN, CREATININE, CA)2020-04-24 10:39:00 Test Item Value Reference Range Interpretation Comments NA (test code = 133 mmol/L 135-145 L 7868501607) K (test code = 4.3 mmol/L 3.5-5 5643239194) CL (test code = 99 mmol/L 98-108 9434967055) CO2 TOTAL (test code = 29 mmol/L 23-31 2232230569) AGAP (test code = 2-16 3764259672) BUN (test code = 20 mg/dL 7-23 7138030421) GLUCOSE (test code = 109 mg/dL 70-110 5427452978) CREATININE (test code = 0.78 mg/dL 0.6-1.25 8551400523) CALCIUM (test code = 8.4 mg/dL 8.6-10.6 L 9057645438) eGFR Calculation mL/min/1.73m2 (Non-) (test code = 2646158733) eGFR Calculation mL/min/1.73m2 () (test code = 5572459306) GILBERTO (test code = GILBERTO) Association of [...] tests). Lab Interpretation Abnormal (test code = 03270-9) [facility] 10:39:00 Test Item Value Reference Range Interpretation Comments MAGNESIUM (test code = 1462959315) 2.2 mg/dL 1.7-2.4 Lab Interpretation (test code = Normal 71472-1) [facility]OMEN PELVIS W [id number] 09:30:06 1. ?Overall, no significant change in [...] angulated coccyx. No acute oraggressive osseous abnormality. [facility], Radiant Results Inft User - 04/24/2020 4:31 [...] reviewed this study and agree with theabove report.[facility] HospitalCT THORAX W [id number] 03:46:28 Acute pulmonary emboli in the anterior [...] andmorphology. No significant pericardial thickening or effusion. Tlulhfja-az-tvksa cardiomediastinal shift. Scattered subcentimeter mediastinal and bilateral [...] andmorphology. No significant pericardial thickening or effusion. Cprphzxi-ir-zaryy cardiomediastinal shift.Scattered subcentimeter mediastinal and bilateral hilar [...] reviewed this study and agree with theabove report.[facility]OVID[facility] (ID NOW RAPID TESTING)2020-04-23 17:45:00 Test Item Value Reference Range Interpretation Comments SARS-CoV-2 Rapid ID NOW Not Detected Not Detected (test code = 28661-3) GILBERTO (test code = GILBERTO) ID NOW COVID-19 Assay is an isothermal nucleic acid amplification test intended for the qualitative detection of nucleic acid from SARS-CoV-2 viral RNA in nasopharyngeal (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) specimens. It is used under Emergency Use [...] indicated. Lab Interpretation Normal (test code = 56730-2) [facility]2020-08-31 17:40:00 Test Item Value Reference Range Interpretation Comments PALB (test code = 44438-8) 11.8 mg/dL 18-45 L Lab Interpretation (test code = Abnormal 87191-4) [facility]XR CHEST 1 [id number] 15:00:55 Stable appearance of left pleural effusion [...] reviewed this study and agree with theabove report.[facility] HospitalPOTASSIUM [id number] 14:14:00 Test Item Value Reference Range Interpretation Comments K (test code = 6535790464) 4.8 mmol/L 3.5-5 Lab Interpretation (test code = Normal 74126-5) [facility] WITH [id number] 11:30:00 Test Item Value Reference Range Interpretation [...] RDW-SD (test code = 45.0 fL 38.5-51.6 41075-4) RDW-CV (test code = 14.5 % 12.1-15.4 788-0) PLT (test code = See_Comment HH [Automated 777-3) message] The sy stem which generated this result transmitted reference range : 150 - 328 10*3/ ?L. The reference r meredith was not used to interpret this result as normal/abnormal . MPV (test code = 9.4 fL 9.8-13 L 01647-2) IPF % (test code = 1.6 % 1.2-10.7 Platelet count 8857930120) measured by fluorescence method. NRBC/100 WBC (test See_Comment [Automat ed code = 3202680823) message] The system which generated this result transmitted reference range : 0.0 - 10.0 /100 WBCs. The refer ence range was not u sed to interpret th is result as normal/abnormal . NRBC x10^3 (test code <0.01 See_Comment [Auto mated = 3900597794) message] The s ystem which generated this result transmitted reference range : 10*3/?L. The reference range was not used to interpret this result as normal/abnormal . GRAN MAT (NEUT) % 73.4 % (test code = 770-8) IMM GRAN % (test code 1.80 % = 6508063914) LYMPH % (test code = 12.6 % 736-9) MONO % (test code = 10.8 % 5905-5) EOS % (test code = 1.0 % 713-8) BASO % (test code = 0.4 % 706-2) GRAN MAT x10^3(ANC) 9.57 10*3/uL 1.99-6.95 H (test code = 9068098768) IMM GRAN x10^3 (test 0.24 10*3/uL 0-0.06 H code = 4583121097) LYMPH x10^3 (test code 1.64 10*3/uL 1.09-3.23 = 731-0) MONO x10^3 (test code 1.41 10*3/uL 0.36-1.02 H = 742-7) EOS x10^3 (test code = 0.13 10*3/uL 0.06-0.53 711-2) BASO x10^3 (test code 0.05 10*3/uL 0.01-0.09 = 704-7) Lab Interpretation Abnormal (test code = 81768-8) [facility] (NA, K, CL, CO2, GLUCOSE, BUN, CREATININE, CA)2020-04-23 10:52:00 Test Item Value Reference Range Interpretation Comments NA (test code = 132 mmol/L 135-145 L 9229724946) K (test code = 5.7 mmol/L 3.5-5 H 3636103667) CL (test code = 97 mmol/L 98-108 L 2903578710) CO2 TOTAL (test code = 26 mmol/L 23-31 8077112528) AGAP (test code = 2-16 6683379452) BUN (test code = 34 mg/dL 7-23 H 9940396262) GLUCOSE (test code = 101 mg/dL 70-110 9955633355) CREATININE (test code = 0.85 mg/dL 0.6-1.25 2725890992) CALCIUM (test code = 9.0 mg/dL 8.6-10.6 7284589125) eGFR Calculation mL/min/1.73m2 (Non-) (test code = 7127642765) eGFR Calculation mL/min/1.73m2 () (test code = 3501266093) GILBERTO (test code = GILBERTO) Association of [...] tests). Lab Interpretation Abnormal (test code = 56918-6) [facility] 10:52:00 Test Item Value Reference Range Interpretation Comments MAGNESIUM (test code = 8492513410) 2.3 mg/dL 1.7-2.4 Lab Interpretation (test code = Normal 32337-5) [facility] [id number] 13:26:55 FINDINGS/IMPRESSION: 1. ?A left pigtail chest [...] effusion COMPARISON: Chest x-ray on 04/21/2020 [facility], Radiant Results Inft User - 04/22/2020 [...] reviewed this study and agree with theabove report.[facility]W 2020-04-22 13:24:27FINDINGS/IMPRESSION: 1. ?A [...] bed COMPARISON: Chest x-ray on 04/20/2020 [facility], Radiant Results Inft User - 04/22/2020 [...] this study and agree with theabove report. [facility] METABOLIC PANEL (NA, K, CL, CO2, GLUCOSE, BUN, CREATININE, CA)2020-04-22 11:49:00 Test Item Value Reference Range Interpretation Comments NA (test code = 132 mmol/L 135-145 L [id number]) K (test code = 4.7 mmol/L 3.5-5 1644367553) CL (test code = 97 mmol/L 98-108 L 2152739967) CO2 TOTAL (test code = 30 mmol/L 23-31 3590422240) AGAP (test code = 2-16 5061531653) BUN (test code = 28 mg/dL 7-23 H 9978716496) GLUCOSE (test code = 117 mg/dL 70-110 H 1303885858) CREATININE (test code = 0.88 mg/dL 0.6-1.25 6976342783) CALCIUM (test code = 8.8 mg/dL 8.6-10.6 1093203472) eGFR Calculation mL/min/1.73m2 (Non-) (test code = 4083463164) eGFR Calculation mL/min/1.73m2 () (test code = 7768373261) GILBERTO (test code = GILBERTO) Association of [...] tests). Lab Interpretation Abnormal (test code = 09142-2) [facility] 11:[facility]:00 Test Item Value Reference Range Interpretation Comments MAGNESIUM (test code = 8116333662) 2.4 mg/dL 1.7-2.4 Lab Interpretation (test code = Normal 44514-8) [facility] WITH [id number] 11:23:00 Test Item Value Reference Range Interpretation Comments WBC (test code = See_Comment H [Automated 5490-2) message] The sy stem which generated this result transmitted reference range : 4.20 - 10.70 10*3/?L. The reference range was not used to interpret this result as normal/abnormal . RBC (test code = See_Comment L [Automated 779-8) message] The sy stem which generated this [...] RDW-SD (test code = 44.9 fL 38.5-51.6 94839-7) RDW-CV (test code = 14.4 % 12.1-15.4 788-0) PLT (test code = See_Comment HH [Automated 777-3) message] The sy stem which generated this result transmitted reference range : 150 - 328 10*3/ ?L. The reference r meredith was not used to interpret this result as normal/abnormal . MPV (test code = 9.5 fL 9.8-13 L 25099-5) NRBC/100 WBC (test See_Comment [Automat ed code = 6419637093) message] The system which generated this result transmitted reference range : 0.0 - 10.0 /100 WBCs. The refer ence range was not u sed to interpret th is result as normal/abnormal . NRBC x10^3 (test code <0.01 See_Comment [Auto mated = 0842905829) message] The s ystem which generated this result transmitted reference range : 10*3/?L. The reference range was not used to interpret this result as normal/abnormal . GRAN MAT (NEUT) % 80.3 % (test code = 770-8) IMM GRAN % (test code 1.50 % = 9350023623) LYMPH % (test code = 7.2 % 736-9) MONO % (test code = 9.7 % 5905-5) EOS % (test code = 0.7 % 713-8) BASO % (test code = 0.6 % 706-2) GRAN MAT x10^3(ANC) 9.99 10*3/uL 1.99-6.95 H (test code = 0701672461) IMM GRAN x10^3 (test 0.19 10*3/uL 0-0.06 H code = 1766252515) LYMPH x10^3 (test code 0.90 10*3/uL 1.09-3.23 L = 731-0) MONO x10^3 (test code 1.21 10*3/uL 0.36-1.02 H = 742-7) EOS x10^3 (test code = 0.09 10*3/uL 0.06-0.53 711-2) BASO x10^3 (test code 0.07 10*3/uL 0.01-0.09 = 704-7) Lab Interpretation Abnormal (test code = 60623-7) [facility] WITH [id number] 14:15:00 Test Item Value Reference Range Interpretation [...] RDW-SD (test code = 44.4 fL 38.5-51.6 14977-4) RDW-CV (test code = 14.2 % 12.1-15.4 788-0) PLT (test code = See_Comment HH [Automated 777-3) message] The sy stem which generated this result transmitted reference range : 150 - 328 10*3/ ?L. The reference r meredith was not used to interpret this result as normal/abnormal . MPV (test code = 9.0 fL 9.8-13 L 35695-9) NRBC/100 WBC (test See_Comment [Automat ed code = 2165852892) message] The system which generated this result transmitted reference range : 0.0 - 10.0 /100 WBCs. The refer ence range was not u sed to interpret th is result as normal/abnormal . NRBC x10^3 (test code <0.01 See_Comment [Auto mated = 3396529104) message] The s ystem which generated this result transmitted reference range : 10*3/?L. The reference range was not used to interpret this result as normal/abnormal . GRAN MAT (NEUT) % 76.4 % (test code = 770-8) IMM GRAN % (test code 1.30 % = 0614635778) LYMPH % (test code = 10.9 % 736-9) MONO % (test code = 9.6 % 5905-5) EOS % (test code = 1.1 % 713-8) BASO % (test code = 0.7 % 706-2) GRAN MAT x10^3(ANC) 9.41 10*3/uL 1.99-6.95 H (test code = 0835474749) IMM GRAN x10^3 (test 0.16 10*3/uL 0-0.06 H code = 4384189437) LYMPH x10^3 (test code 1.34 10*3/uL 1.09-3.23 = 731-0) MONO x10^3 (test code 1.18 10*3/uL 0.36-1.02 H = 742-7) EOS x10^3 (test code = 0.13 10*3/uL 0.06-0.53 711-2) BASO x10^3 (test code 0.08 10*3/uL 0.01-0.09 = 704-7) Lab Interpretation Abnormal (test code = 38527-4) [facility] METABOLIC PANEL (NA, K, CL, CO2, GLUCOSE, BUN, CREATININE, CA)2020-04-21 13:47:00 Test Item Value Reference Range Interpretation Comments NA (test code = 130 mmol/L 135-145 L 3927463812) K (test code = 4.8 mmol/L 3.5-5 6355997707) CL (test code = 95 mmol/L 98-108 L 7857062105) CO2 TOTAL (test code = 29 mmol/L 23-31 6379043592) AGAP (test code = 2-16 8065376024) BUN (test code = 25 mg/dL 7-23 H 3841897479) GLUCOSE (test code = 98 mg/dL 70-110 6894170976) CREATININE (test code = 0.78 mg/dL 0.6-1.25 5935582073) CALCIUM (test code = 8.2 mg/dL 8.6-10.6 L 5967447958) eGFR Calculation mL/min/1.73m2 (Non-) (test code = 0468888837) eGFR Calculation mL/min/1.73m2 () (test code = 9893133292) GILBERTO (test code = GILBERTO) Association of [...] tests). Lab Interpretation Abnormal (test code = 50481-9) [facility]2020-08-29 13:47:00 Test Item Value Reference Range Interpretation Comments MAGNESIUM (test code = 0333800254) 2.1 mg/dL 1.7-2.4 Lab Interpretation (test code = Normal 19080-9) [facility]PRE[facility]IN2020-08-28 21:30:00 Test Item Value Reference Range Interpretation Comments PALB (test code = 24682-3) 9.3 mg/dL 18-45 L Lab Interpretation (test code = Abnormal 19641-0) [facility] HospitalBody Fluid [id number] 14:32:00 Test Item Value Reference Range Interpretation Comments BODY FLUID CULT No organisms isolated (test code = 611-4) Gram stain (test Occasional (Rare) code = 664-3) Polymorphonuclear leukocytes [facility] HospitalXR CHEST 1 [id number] 13:09:21EXAM: XR CHEST 1 VW HISTORY: ct [...] The heart and great vessels are normal. [facility] HospitalBAS[facility]OLIC PANEL (NA, K, CL, CO2, GLUCOSE, BUN, CREATININE, CA)2020-04-20 11:00:00 Test Item Value Reference Range Interpretation Comments NA (test code = 132 mmol/L 135-145 L 1527707536) K (test code = 5.2 mmol/L 3.5-5 H 6835939830) CL (test code = 100 mmol/L 98-108 8238674628) CO2 TOTAL (test code = 24 mmol/L 23-31 7197602384) AGAP (test code = 2-16 5217259775) BUN (test code = 19 mg/dL 7-23 7555683887) GLUCOSE (test code = 121 mg/dL 70-110 H 4949086381) CREATININE (test code = 0.77 mg/dL 0.6-1.25 7108044346) CALCIUM (test code = 8.2 mg/dL 8.6-10.6 L 3335468397) eGFR Calculation mL/min/1.73m2 (Non-) (test code = 0000037472) eGFR Calculation mL/min/1.73m2 () (test code = 5874027556) GILBERTO (test code = GILBERTO) Association of [...] tests). Lab Interpretation Abnormal (test code = 61621-4) [facility]2020-08-28 11:00:00 Test Item Value Reference Range Interpretation Comments MAGNESIUM (test code = 6216279567) 2.1 mg/dL 1.7-2.4 Lab Interpretation (test code = Normal 50269-2) [facility] HospitalPHOS[facility]US2020-08-28 11:00:00 Test Item Value Reference Range Interpretation Comments PHOSPHORUS (test code = 1253692090) 3.9 mg/dL 2.5-5 Lab Interpretation (test code = Normal 82276-2) [facility] WITH [id number] 10:23:00 Test Item Value Reference Range Interpretation [...] RDW-SD (test code = 45.2 fL 38.5-51.6 73917-7) RDW-CV (test code = 14.2 % 12.1-15.4 788-0) PLT (test code = See_Comment HH [Automated 777-3) message] The system which generated this result transmit dain reference range : 150 - 328 10*3/ ?L. The reference range was not u sed to interpret th is result as normal/abnormal . MPV (test code = 9.3 fL 9.8-13 L 90943-2) NRBC/100 WBC (test See_Comment [Automat ed code = 1903055206) message] The system which generated this result transmit dain reference range : 0.0 - 10.0 /100 WBCs. The reference range was not used to interpret this result as normal/abnormal . NRBC x10^3 (test code <0.01 See_Comment [Auto mated = 8267555649) message] The system which generated this result transmit dain reference range : 10*3/?L. The reference range was not used to interpret this result as normal/abnormal . GRAN MAT (NEUT) % 79.8 % (test code = 770-8) IMM GRAN % (test code 1.50 % = 9645640860) LYMPH % (test code = 9.8 % 736-9) MONO % (test code = 7.5 % 5905-5) EOS % (test code = 0.6 % 713-8) BASO % (test code = 0.8 % 706-2) GRAN MAT x10^3(ANC) 10.64 10*3/uL 1.99-6.95 H (test code = 7114889616) IMM GRAN x10^3 (test 0.20 10*3/uL 0-0.06 H code = 0064541234) LYMPH x10^3 (test code 1.31 10*3/uL 1.09-3.23 = 731-0) MONO x10^3 (test code 1.00 10*3/uL 0.36-1.02 = 742-7) EOS x10^3 (test code = 0.08 10*3/uL 0.06-0.53 711-2) BASO x10^3 (test code 0.10 10*3/uL 0.01-0.09 H = 704-7) Lab Interpretation Abnormal (test code = 75157-8) [facility]XR [facility] 1 [id number] 12:25:53 No residual pleural effusion noted. Preliminary [...] reviewed this study and agree with theabove report.[facility] (NA, K, CL, CO2, GLUCOSE, BUN, CREATININE, CA)2020-04-19 11:09:00 Test Item Value Reference Range Interpretation Comments NA (test code = 133 mmol/L 135-145 L 6333260445) K (test code = 4.2 mmol/L 3.5-5 9251915146) CL (test code = 101 mmol/L 98-108 7889399828) CO2 TOTAL (test code = 26 mmol/L 23-31 7637983205) AGAP (test code = 2-16 6023178949) BUN (test code = 15 mg/dL 7-23 3343614676) GLUCOSE (test code = 113 mg/dL 70-110 H 5619799823) CREATININE (test code = 0.73 mg/dL 0.6-1.25 1565836567) CALCIUM (test code = 8.1 mg/dL 8.6-10.6 L 1587059946) eGFR Calculation mL/min/1.73m2 (Non-) (test code = 4253637793) eGFR Calculation mL/min/1.73m2 () (test code = 0044362994) GILBERTO (test code = GILBERTO) Association of [...] tests). Lab Interpretation Abnormal (test code = 62201-2) [facility]2020-08-27 11:09:00 Test Item Value Reference Range Interpretation Comments MAGNESIUM (test code = 9624521545) 2.1 mg/dL 1.7-2.4 Lab Interpretation (test code = Normal 11809-3) [facility] HospitalPHOS[facility]US2020-08-27 11:09:00 Test Item Value Reference Range Interpretation Comments PHOSPHORUS (test code = 6246221338) 3.9 mg/dL 2.5-5 Lab Interpretation (test code = Normal 40734-0) [facility] HospitalCBC WITH [id number] 10:59:00 Test Item Value Reference Range Interpretation Comments WBC (test code = See_Comment H [Automated 8190-2) message] The sy stem which generated this [...] RDW-SD (test code = 46.0 fL 38.5-51.6 26947-8) RDW-CV (test code = 14.2 % 12.1-15.4 788-0) PLT (test code = See_Comment HH [Automated 777-3) message] The sy stem which generated this result transmitted reference range : 150 - 328 10*3/ ?L. The reference r meredith was not used to interpret this result as normal/abnormal . MPV (test code = 9.3 fL 9.8-13 L 00551-7) NRBC/100 WBC (test See_Comment [Automat ed code = 3550736611) message] The system which generated this result transmitted reference range : 0.0 - 10.0 /100 WBCs. The refer ence range was not u sed to interpret th is result as normal/abnormal . NRBC x10^3 (test code <0.01 See_Comment [Auto mated = 2504600806) message] The s ystem which generated this result transmitted reference range : 10*3/?L. The reference range was not used to interpret this result as normal/abnormal . GRAN MAT (NEUT) % 79.2 % (test code = 770-8) IMM GRAN % (test code 1.00 % = 0980861370) LYMPH % (test code = 11.4 % 736-9) MONO % (test code = 6.7 % 5905-5) EOS % (test code = 1.0 % 713-8) BASO % (test code = 0.7 % 706-2) GRAN MAT x10^3(ANC) 9.49 10*3/uL 1.99-6.95 H (test code = 2865921996) IMM GRAN x10^3 (test 0.12 10*3/uL 0-0.06 H code = 3427872440) LYMPH x10^3 (test code 1.36 10*3/uL 1.09-3.23 = 731-0) MONO x10^3 (test code 0.80 10*3/uL 0.36-1.02 = 742-7) EOS x10^3 (test code = 0.12 10*3/uL 0.06-0.53 711-2) BASO x10^3 (test code 0.08 10*3/uL 0.01-0.09 = 704-7) Lab Interpretation Abnormal (test code = 41820-6) [facility] HospitalBLOOD CULTURE [id number] 22:29:00 Test Item Value Reference Range Interpretation Comments Blood Culture-Aerobic No organisms No growth Previo us (test code = 60545-0) isolated prelim inary verified result was Culture In Progress on 04/13/2020 at 06 06 CDT Blood Culture positive. No growth AA Previous Culture-Anaerobic See Blood Culture preli minary (test code = 63165-3) Workup for verifi ed result additional was Culture In information. Progress on 04/12/2020 at 18 01 CDT Lab Interpretation Abnormal (test code = 67639-1) [facility] HospitalIR PLEURAL DRAINAGE WITH TUBE WITH IMAGING 2020-04-18 15:38:00Successful image guided 10 Montenegrin pigtail chest tube insertioninto the left pleural [...] was obtained. Prior to beginning the procedure, [place] Protocolwas performed to confirm the patient's identity [...] pleural space. The tractwas dilated to 10 Montenegrin, and a 10 Montenegrin pigtail chest tube was insertedand coiled within [...] a large amount of pleural fluid. [facility], Radiant Results Inft User - 04/18/2020 [...] was obtained. Prior to beginning the procedure, [place] Protocolwas performed to confirm the patient's identity [...] pleural space. The tractwas dilated to 10 Montenegrin, and a 10 Montenegrin pigtail chest tube was insertedand coiled within [...] of pleural fluid. IMPRESSIONSuccessful image guided 10 Montenegrin pigtail chest tube insertioninto the left pleural space. PLAN: Post procedure chest radiograph will be obtained.[facility] HospitalXR CHEST 1 [id number] 13:37:38 Hazy left midlung opacity, may represent [...] acute bony abnormality. [facility], Radiant Results Inft 04/18/2020 8:40 AM CDTPROCEDURE: XR CHEST 1 [...] reviewed this study and agree with the abovereport.[facility] HospitalBASIC METABOLIC PANEL (NA, K, CL, CO2, GLUCOSE, BUN, CREATININE, CA)2020-04-18 11:18:00 Test Item Value Reference Range Interpretation Comments NA (test code = 134 mmol/L 135-145 L 7033430066) K (test code = 4.4 mmol/L 3.5-5 8888877993) CL (test code = 102 mmol/L 98-108 1651870542) CO2 TOTAL (test code = 26 mmol/L 23-31 7617186239) AGAP (test code = 2-16 0266426241) BUN (test code = 12 mg/dL 7-23 1545171858) GLUCOSE (test code = 106 mg/dL 70-110 2387878469) CREATININE (test code = 0.74 mg/dL 0.6-1.25 8573337246) CALCIUM (test code = 7.5 mg/dL 8.6-10.6 L 5552533054) eGFR Calculation mL/min/1.73m2 (Non-) (test code = 1000382128) eGFR Calculation mL/min/1.73m2 () (test code = 2724215748) GILBERTO (test code = GILBERTO) Association of [...] tests). Lab Interpretation Abnormal (test code = 73593-7) [facility] Test Item Value Reference Range Interpretation Comments MAGNESIUM (test code = 1761705680) 2.0 mg/dL 1.7-2.4 Lab Interpretation (test code = Normal 89007-9) [facility]PH[facility]2020-08-26 11:18:00 Test Item Value Reference Range Interpretation Comments PHOSPHORUS (test code = 1636404864) 3.4 mg/dL 2.5-5 Lab Interpretation (test code = Normal 73738-6) [facility] HospitalCBC WITH [id number] 10:46:00 Test Item Value Reference Range Interpretation [...] RDW-SD (test code = 46.5 fL 38.5-51.6 18655-8) RDW-CV (test code = 14.5 % 12.1-15.4 788-0) PLT (test code = See_Comment HH [Automated 777-3) message] The system which generated this result transmit dain reference range : 150 - 328 10*3/ ?L. The reference range was not u sed to interpret th is result as normal/abnormal . MPV (test code = 9.6 fL 9.8-13 L 22768-0) NRBC/100 WBC (test See_Comment [Automat ed code = 0789619548) message] The system which generated this result transmit dain reference range : 0.0 - 10.0 /100 WBCs. The reference range was not used to interpret this result as normal/abnormal . NRBC x10^3 (test code <0.01 See_Comment [Auto mated = 0742495877) message] The system which generated this result transmit dain reference range : 10*3/?L. The reference range was not used to interpret this result as normal/abnormal . GRAN MAT (NEUT) % 82.1 % (test code = 770-8) IMM GRAN % (test code 0.90 % = 2068798157) LYMPH % (test code = 9.2 % 736-9) MONO % (test code = 6.6 % 5905-5) EOS % (test code = 0.7 % 713-8) BASO % (test code = 0.5 % 706-2) GRAN MAT x10^3(ANC) 10.02 10*3/uL 1.99-6.95 H (test code = 5061227662) IMM GRAN x10^3 (test 0.11 10*3/uL 0-0.06 H code = 3643627122) LYMPH x10^3 (test code 1.12 10*3/uL 1.09-3.23 = 731-0) MONO x10^3 (test code 0.80 10*3/uL 0.36-1.02 = 742-7) EOS x10^3 (test code = 0.08 10*3/uL 0.06-0.53 711-2) BASO x10^3 (test code 0.06 10*3/uL 0.01-0.09 = 704-7) Lab Interpretation Abnormal (test code = 69786-9) [facility] HospitalBL[facility] C[facility]URE [id number] 20:01:00 Test Item Value Reference Range Interpretation Comments Blood Culture-Aerobic No organisms No growth Previo us (test code = 84153-0) isolated prelim inary verified result was Culture [...] Culture-Anaerobic isolated preliminar y (test code = 69097-0) verifi ed result was Culture In Progress [...] CDT Lab Interpretation Normal (test code = 74372-4) [facility]XR [facility] 1 [id number] 19:38:57 FINDINGS/IMPRESSION: There are 2 left-sided chest [...] 2:35 PM on 04/17/[address] Mathieu Chapa.[facility] HospitalCyto Pleural [id number] 17:29:00 Test Item Value Reference Range Interpretation Comments Case Report (test code Non-Gynecologic = 8090302341) Cytology ?Case: [id number] ?Authorizing Provider: ?Vance Stafford MD ?Collected: ? 04/16/2020 1650 ?Ordering Location: ? ? Surgery ([facility]C) ? Received: ?04/16/2020 1809 ?Pathologist: ? Alice Aj MD ? Specimen: ? ?PLEURAL, LEFT, EFFUSION ? Final Diagnosis (test y7ldqOPvLHViy0fhCLTcsA code = 9387245467) FuZzEwMzNcZnRuYmpcdWMx UQtdtnDfXKgya8FtN4ZrAb AwMFxhbnNpXGRlZmxhbmcx CJOcJYX0pmIkFHRcDKdzLG PpTDejTh5pxELmaKuwGuDb HTSms7nkmdVFiifplLm8j8 beTUUtGiO3jJUtSQuwL1sa jdGqeDAoTJOyUUk7zC32KA EtzG9lrUFkYKzecxHoZmE1 DYlnIWWgBrS8CIXukPOgMM FeH3nfKCHvLNslTAMeLTqk iLFmEMX6cSluz4O5vQYmlK DuuYzuKxVkLnVyMFYYa8Ew TRc4xLeiI1XjCMCePxV9tM QgUGFyYWdyYXBoIEZvbnQ7 tA24WLmvzuD0oJBud7Mfs2 2gp746aV7eeSWdEHS6INTd VSVqnLYzCAOuELU5UTCrbA NpK5ozIPftXO6ocdewINZ1 MFxtYXJndDcyMFxtYXJnYj LpdDCfZJVrgLmyJAvni125 MLZ8ZvJqVX2zM2Lhy9X7dM 9maXRcZGVmdGFiNzIwXGZv da1uiZNyCGcgo5XwMVS8yb D2zTYhjRCxZUMkUK98Jbbl u1QlQnboSQF1MKFbwjFyn6 Fhm7msMfJdjzMrU2xyO9Gd ZHJoZWFkXHBnYnJkcmZvb3 Fwt3IikXRnmRf8w6ijQSAq OUXxkUfgz8hyKJD2OKZyK8 W6lORra0xdSGlqAYJfzSQ7 mcRmYWXdqSJzH2DgwH7nGM soHR2qnsz2j9xgClOaOD2b igefr8ekHLfjLSOnGGA6Oa FlNLRwv0WtpsbfMhMib8Yy rHJqCYueC81sp840DWDuxp DeN1czkMLneapmgXCygeam QMbagmL7GMNdzhKwwYcbtL 5yLrJsOtYfOPraNX0iYALq C9rrdUZaZUVaGMZjL0liQx CvmO0tfCzcNEosClUpTcHo MFxiIEEuICBQTEVVUkEsIE qPVbY0EXCFO3ODE5LXDEUC SVMgRkxVSURccGFyICAgIC OpRC0nLI6IQQGVWUJLXV2J AOOEFmUSV68TMaEYAFpPZO 3ATWKVE0BWFPtGW8vpXXQq ICAgICAgLSBORUdBVElWRS SYB2VhYBBWFHqRNT4LVXSI TExTXHBsYWluXGYxXGZzMj BcbGFuZzEwMzNcaGljaFxm WMzfLxThGDVuYBdiH6ovEz NiUoWsFIWxXUMGOZJAP60C JO2UVBkaDOE8b4aimPRiPQ YfpRUkTqExNTFnOMXpn7pk ZGVmbGFuZzEwMzNcZnRuYm nyfTXoOHDcOhHav5jbd811 wGPoj1aeOQLeOuX0hOJcCV NitJqocdc5qBpuYfDsGNQm w3pfvvQfSdAhIUAtBAFdLC QnhEMsU395VKQcPWozh5pd a6CcVPRvoASha5K4VDAZJF rpBvVjA467r2srr7sdoyYa gMV9GSBaTBH2IGxrxnXhru H9ENudlVSjTwY3EXxfcjJq XQbweyLgbmQrIfe5QHHrF9 86IJI4hGxlu2agMJC3TDBq RYNtYstoGo2zyCXpY609BT WzSFHHOSViwGo8TKTosrZd zcWbwOKGd426X512w4xiCS FxrtFkgDhNkzues8beT396 XHBhcGVydzEyMjQwXHBhcG JftSW6VTUlLV4sizajBHsv UZnsBDFajdA1CHZgbIMuL4 JeGTSvXC0wtwbpCMK0NKxq PKVkCYK3VtIuPHXgt6Aijq z7LcEwyl3hnr46OJL8u0Fa lTbtCSI0SNJ3YpQzRf3uwE GsWJLtZD3aEsGstOOcQHCp ra58uEtaWYanafTplH9aRs HlUTFbjAEyDZEmXX4mkIXh QHSzmU4nueeoULOcKtHukr cjPNRwnVfqrfZzIj4kyQlq TSF4QZudT9syjG8qKdG7HV bdA1nqoV6oANn3BEmciGA9 YNXknE6fYM4lqijgt4ecNH kdRQnlDQFfhsW9wnS9ZDDh rEFkC3SbaR6zEPGiMO9sdb zsr2kmTLI6NAcyCBDqYNM6 VbXnHSRtc5Betfv9WhUxn1 JyuEZxVJcxA69pp112IRAn wmZnL8tfcQXpqlbvnFJizy rpVGgrzbC2AEOdCAEdPGzg XGYxXGZzMjBcbGFuZzEwMz NcaGljaFxmMVxkYmNoXGYx JXgoO3fxAaOoZ4EkWMLrYf KcyNXrRAciiIE0HOFdJJXo t70uaHn7WWVomrkdn2TgFX VpoDErqJYgiC4zfcGyp2xm UEBaXOYwWNQzI4SyMWV1yC RhGLSvuZXciZX0LF0nrfMj KL6yTHReAminmaPvgIIwqu WiUHUzBFwey1vbTD2vIHFx uEbgcK0ucSC2EFLji1ibdL DzhXAzr8diw3DczdOdSMna EZXgIZgtEUTnOZKvZG0aPH MuvOPmnfMzb6L1KaxtiSNv tkkmXllqaxS9FRibrzkfRP XjXFpeB9mkWrJyBEIqoZpz Pkxka1JySLIlVGLnDbuhmF FyfX0= Final Diagnosis Comment n1unrKBoCBPnpAMwJvGpNW (test code = LhGEMax1fmFSIjrFYhFtOg [id number]) MzNcZnRuYmpcdWMxXGRlZm Aee3enl074yEPew5sfJYWj LgF1iBIpLYJotGIbT273i5 wps8vuqbTlcDO6NUWhSIA6 HVkeyjMywzZ8FTdaiSWlYo N0QAsihdSfWEjtunEfzrDr Rdd0QAVjT926YTE0iOfdq9 viLPE1RTQcHLMjYzMxKh5b gWQlB811EYIrFZYQTLZflS h6HIQjxbHpidRovOTWf297 F403j9itKROcbmPfdSiZjc qop9jaQ617PPGefFPuqkVk NxLcZRJdvVIenOR1APSiKV 1waewzYQS9OBljUSPodtEi RFUetOFhH2G8AtOqcXYfT3 WvRFlwDYIefik4EpBjEv2o kGVlhNP2NEjyn7los4hurU FiUnz4USDrStYgWijcAPco a9Lih3gbPWVybc4yANB9nK MliWeyv2V9wNPoIPNlsONx qoExBGDnNwC5LJheYL7hat 46YCBbECQ5ob5hrYTpcOhe ikXbdFVuBTsoH5HcUBGsz0 50HXLjX4PqBKAer6N2ffUf CgMwWXKdaVG6idD2NQIgCP n6wQVxmxR7daKgrDCrS2qe gD2cLNqzXV4tgypcc6bgMD C4ZPvtJVBpvAE9akfnTTqp RERlAqP2voSwhYSjMQTedA llLApyk702SPY3ZmJnBKZc n7UgL7JtvAzoQ61zvOebN1 2fEBQeqEqpiD5spTlznZ3m ZjBcZnMyNFxxbFxwbGFpbl xmMFxmczIwXGxhbmcxMDMz NQjlS5vrPtTpCORliOfgMQ lqv6WmOUNtMIBwCeKbP59g UQEjm2dzj1GtxVp3KFJqzF 1kiJCcsMU1nD7uTHdmkTni sAYrWF8olN8rfnIwwJBkZF T0gr5jkPwywvjpIyC7HGy7 aTKaz9A0zMKlKBYbRINanR IagZ5sTUTzi71jbLN7ZJ50 FBichEoeIS5rtMPbUV4iFe 2qnTAhrBesZM83QIKzoUyh DEweIZ58bYEbWZXdATdjWY J9 Clinical Information Clinical Hx: ?Total (test code = colectomy complicated [id number]) . Requested per consulting surgery team. Gross Description (test z6tfhWUzDTVehKBaRlAcIN code = [id number]) CuMWCtl0lqUYRgfQRoNyNn MzNcZnRuYmpcdWMxXGRlZm Pdn6nvz906aWHiv0fcPEYt CsC5rYTyHCChfKLdK187c9 efs7giyjCntCH6ICHcUYG1 SWqjduLmnfR6LJjwwHCyFv B2VHipptZeIWjoaiTxopQc Yzd7RMDgP306TBO1hTmxq4 dbDQK9DCMwXEMgGnAlGd2x pQKfK249QLFqCPQAKHPxwB e8QXOhrnRhckBesHKHi816 K274c5pmGPTxxoWqkXdGbc gda2nnG241QJIyzMMyaqDy OgBcONTthNTrhDP4IIDrNM 5guphwVCS9OQdeZYZmcpXh JCRfzLKnQ6A8JjDufLDxX4 JhOShfBVBilmg6HlSxQy7w iSKagCQ9XMrcw7zov7itzW ToWqi0QTAlRnMoLhfjWAjj z5Wvk7acBCKmrv9iDXO0mP CftRkdg6U8aCYrGVAshRLe llVrNZFcXrO3OZctUP3lcr 68IRYlJFW4ke8faJBajNqo chGzvYYbSCicB2XjLBCpd0 11UKXkI5WbSPZer4R7iyTz YuMgPYZzqWW8xlN1ARYsPK j6lDNnzgU5rbZqgYVvG1bb kP1aBJslMN4ojdcsv7oaRB O2XFktTGXxdXE6lnzkSKzm XWVkEjU7sbMyrHEoMYTkaP ooNHupn040VOK2HxFdNOVe p9HsR2EtkAxiF92hfKtkM4 9zPYRfzTaleU0bfUzaeQ8i ZjBcZnMyNFxxbFxwbGFpbl xmMFxmczIwXGxhbmcxMDMz IUflG0aeKpYfGTSdgZowNL osz3FxIPWoPWPbWvTfWSFq QVZVBQZZUoCdPGuTYyO2YA BDH9KKK7THOCLWFMHzCglB SAPkfPGfIWViB6OfufXpQO EyIRPcOValFIBjDNYtX7Nb b3VzsNZtuH13MBVxaGadSK xwYXIgUHJlcGFyZWQgMiBz yXeoPPXuBVTpHVPlPF7aW9 6qMB03DKQ7kO4nlDviDLPw exKsERIVj71rcv98j6f1JG J2yM8yrSwaTFVxJZBnnhN1 gX0sDAymTUG7 Embedded Images (test code = [id number]) [facility] [id number] 13:05:21EXAM: XR CHEST 1 VW HISTORY: post [...] the chest is little different than noted yesterday.[facility] WITH [id number] 11:18:00 Test Item Value Reference Range Interpretation Comments WBC (test code = See_Comment H [Automated 5890-2) message] The system which generated this result [...] RDW-SD (test code = 47.8 fL 38.5-51.6 81636-1) RDW-CV (test code = 14.7 % 12.1-15.4 788-0) PLT (test code = See_Comment HH [Automated 777-3) message] The system which generated this result transmit dain reference range : 150 - 328 10*3/ ?L. The reference range was not u sed to interpret th is result as normal/abnormal . MPV (test code = 9.9 fL 9.8-13 04680-2) NRBC/100 WBC (test See_Comment [Automat ed code = [id number]) message] The system which generated this result transmit dain reference range : 0.0 - 10.0 /100 WBCs. The reference range was not used to interpret this result as normal/abnormal . NRBC x10^3 (test code <0.01 See_Comment [Auto mated = 3443179821) message] The system which generated this result transmit dain reference range : 10*3/?L. The reference range was not used to interpret this result as normal/abnormal . GRAN MAT (NEUT) % 81.7 % (test code = 770-8) IMM GRAN % (test code 1.10 % = 2999530359) LYMPH % (test code = 9.1 % 736-9) MONO % (test code = 7.3 % 5905-5) EOS % (test code = 0.5 % 713-8) BASO % (test code = 0.3 % 706-2) GRAN MAT x10^3(ANC) 10.91 10*3/uL 1.99-6.95 H (test code = 6191442484) IMM GRAN x10^3 (test 0.15 10*3/uL 0-0.06 H code = 2393696558) LYMPH x10^3 (test code 1.21 10*3/uL 1.09-3.23 = 731-0) MONO x10^3 (test code 0.97 10*3/uL 0.36-1.02 = 742-7) EOS x10^3 (test code = 0.07 10*3/uL 0.06-0.53 711-2) BASO x10^3 (test code 0.04 10*3/uL 0.01-0.09 = 704-7) Lab Interpretation Abnormal (test code = 04491-9) [facility] METABOLIC PANEL (NA, K, CL, CO2, GLUCOSE, BUN, CREATININE, CA)2020-04-17 10:49:00 Test Item Value Reference Range Interpretation Comments NA (test code = 134 mmol/L 135-145 L 9235728645) K (test code = 4.2 mmol/L 3.5-5 9023045746) CL (test code = 103 mmol/L 98-108 4794154402) CO2 TOTAL (test code = 26 mmol/L 23-31 3269033989) AGAP (test code = 2-16 6494133798) BUN (test code = 12 mg/dL 7-23 4877914316) GLUCOSE (test code = 107 mg/dL 70-110 0427801940) CREATININE (test code = 0.74 mg/dL 0.6-1.25 8819491681) CALCIUM (test code = 7.8 mg/dL 8.6-10.6 L 1926165180) eGFR Calculation mL/min/1.73m2 (Non-) (test code = 6676494867) eGFR Calculation mL/min/1.73m2 () (test code = 0318869136) GILBERTO (test code = GILBERTO) Association of [...] tests). Lab Interpretation Abnormal (test code = 39162-7) [facility] Test Item Value Reference Range Interpretation Comments MAGNESIUM (test code = 1734551625) 2.3 mg/dL 1.7-2.4 Lab Interpretation (test code = Normal 69007-6) [facility] 10:49:00 Test Item Value Reference Range Interpretation Comments PHOSPHORUS (test code = 5943290836) 3.8 mg/dL 2.5-5 Lab Interpretation (test code = Normal 40202-2) [facility] HospitalLDH TOTAL BODY [id number] 00:37:00 Test Item Value Reference Range Interpretation Comments LDH BF (test code = 3707 U/L 2920892494) UNSPUN BODY FLUID Light Yellow COLOR (test code = 6529783952) UNSPUN BODY FLUID Clear CLARITY (test code = 9695721123) SPUN BODY FLUID Light Yellow COLOR (test code = 4451979470) SPUN BODY FLUID Clear CLARITY (test code = 5380741490) Sediment (test code The sediment volume is 0.1 = 0692073826) mLs of the total fluid volume of 3mLs and its color is white. GILBERTO (test code = Test developed and GILBERTO) characteristics determined by [facility] Laboratory Services. [facility] HospitalXR CHEST 1 [id number] 00:22:53 1. ?Left lower lung zone 2 [...] Bones: No acute osseous abnormalityis seen. [facility], Radiant Results Inft User - 04/16/2020 [...] compared to 817 with a possible small pneumothorax.[facility] HospitalBODY FLUID DIRECT [id number] 00:10:00 Test Item Value Reference Range Interpretation Comments BF COLOR Light Yellow (test code = 5868971046) BF WBC Count See_Comment [Automated (test code = message] The sy stem 7775352817) which generated this result transmitted reference range : /?L. The refere nce range was not u sed to interpret th is result as normal/abnormal . BF RBC Count <3000 See_Comment [Automated (test code = message] The sy stem 4262396233) which generated this result transmitted reference range : /?L. The refere nce range was not u sed to interpret th is result as normal/abnormal . GILBERTO (test The reference range code = GILBERTO) and other method performance specifications have not been established for this body fluid. ?The test results must be integrated into the clinical context for interpretation. [facility] HospitalBODY FLUID MANUAL [id number] 00:10:00 Test Item Value Reference Range Interpretation Comments BF SEGS (test code = 0517374763) 78 % MACROPHAGE (test code = 4921480359) 22 % #CELS CNTD (test code = 9394643847) [facility] HospitalAmylase Body [id number] 00:03:00 Test Item Value Reference Range Interpretation Comments AMYLASE BF (test 313 U/L code = 8993503637) UNSPUN BODY FLUID Yellow COLOR (test code = 8810091777) UNSPUN BODY FLUID Clear CLARITY (test code = 2668907215) SPUN BODY FLUID Yellow COLOR (test code = 1872946399) SPUN BODY FLUID Clear CLARITY (test code = 9523045322) Sediment (test code The sediment volume is = 3236423559) <0.1 mLs of the total fluid volume of 1mL and its color is red. GILBERTO (test code = Test developed and GILBERTO) characteristics determined by [facility] Laboratory Services. [facility] HospitalGlucose Body [id number] 00:03:00 Test Item Value Reference Range Interpretation Comments GLUCOSE BF (test 57 mg/dL code = 1680063379) UNSPUN BODY FLUID Yellow COLOR (test code = 9539021700) UNSPUN BODY FLUID Clear CLARITY (test code = 5253690102) SPUN BODY FLUID Yellow COLOR (test code = 5065780885) SPUN BODY FLUID Clear CLARITY (test code = 3627819365) Sediment (test code The sediment volume is = 1363069084) <0.1 mLs of the total fluid volume of 1mL and its color is red. GILBERTO (test code = Test developed and GILBERTO) characteristics determined by [facility] Laboratory Services. [facility] HospitalTotal Protein Body [id number] 00:03:00 Test Item Value Reference Range Interpretation Comments T.PROT BF (test 3000.0 mg/dL code = 7990010214) UNSPUN BODY FLUID Yellow COLOR (test code = 9285690555) UNSPUN BODY FLUID Clear CLARITY (test code = 7897969499) SPUN BODY FLUID Yellow COLOR (test code = 5348918262) SPUN BODY FLUID Clear CLARITY (test code = 1295592862) Sediment (test code The sediment volume is = 0909464788) <0.1 mLs of the total fluid volume of 1mL and its color is red. GILBERTO (test code = Test developed and GILBERTO) characteristics determined by [facility] Laboratory Services. [facility] HospitalPH, Body [id number] 23:56:00 Test Item Value Reference Range Interpretation Comments PH BF (test code = 1861321427) UNSPUN BODY FLUID COLOR Light Yellow (test code = 7304543412) UNSPUN BODY FLUID Clear CLARITY (test code = 6849786842) SPUN BODY FLUID COLOR Light Yellow (test code = 0962216045) SPUN BODY FLUID CLARITY Clear (test code = 4108642428) Sediment (test code = The sediment volume is 8083651108) 0.1 mLs of the total fluid volume of 5.5mLs and its color is white/red. [facility] HospitalIR DRAINAGE BY CATHETER PERITONEAL OR [id number] 21:10:26 Successful placement of a 12 Montenegrin drain in the left upper quadrantcollection. Successful placement of a 14 Montenegrin drain in the midline air fluidcollection. Successful placement of a 10 Montenegrin drain in the right lower quadrant fluidcollection. [...] those actually performingthe procedure. Please refer to [facility] regarding sedation time. RADIATION DOSE: 1957 mGy - cm. TECHNIQUE: The risks, benefits and alternatives were discussed and informed consentwas obtained. Prior to beginning the procedure, [place] Protocol was usedto confirm the patient's identity and planned procedure. Maximum sterilebarriers including cap, mask, hand hygiene, sterile gloves, sterile gown,large sterile drape and cutaneous antisepsis were used. The anteriorabdominal wall was sterilely prepped, and draped. The skinoverlying the left upper, right upper, andright lower quadrants wasinfiltrated with lidocaine 2%. The targeted collection in the left upper quadrant was then accessed with e64-aeobo quadrant needle using CT guidance. A 0.035 Amplatz wire wasadvanced through the coaxial needle. The tract was serially dilated to 12French. A pigtail 12 Montenegrin catheter was placed in the left upper quadrantcollection. Approximately, 210 cc of purulent fluid was removed. The air-fluid collection in the mid abdomen was accessed through the rightupper quadrant. An 18 Montenegrin pigtail catheter was placed in this collectionunder CT guidance in a similar fashion to thedrkatiuska and left jeanquadabisai. Approximately, 1250 cc of purulent material were removed. The fluid collection in the right lower quadrant was also accessed in asimilar fashion. A 10 Montenegrin pigtail catheter was placed in this collectionunder [...] at the time of the procedure. [facility], Radiant Results Inft User - 04/16/2020 4:11 PM CDTEXAMINATION: PERCUTANEOUS ASPIRATIONHISTORY: 50-year-old male with postoperative abdominal fluid collections SEDATION: Moderate sedation was administered under the supervision of atrained nurse specialist who was independent from those actually performingthe procedure. Please refer to [facility] regarding sedation time.RADIATION DOSE: 1957 mGy - cm.TECHNIQUE: The risks, benefits and alternatives were d iscussed and informed consentwas obtained. Prior to beginning the procedure, [place] Protocol was usedto confirm the patient's identity [...] serially dilated to 12French. A pigtail 12 Montenegrin catheter was placed in the left upper quadrantcollection. Approximately, 210 cc of purulent fluid was removed.The air-fluid collection in the mid abdomen was accessed through the rightupper quadrant. An 18 Montenegrin pigtail catheter was placed in this collectionunder CT guidance in a similar fa shion to the drain and left upperquadrant. Approximately, 1250 cc of purulent material were removed.The fluid collection in the right lower quadrant was also accessed in asimilar fashion. A 10 Montenegrin pigtail catheter was placed in this collectionunder [...] left upper quadrantcollection.Successful placement of a 14 Montenegrin drain in the midline air fluidcollection.Successful placement of a 10 Montenegrin drain in the right lower quadrant fluidcollection.Preliminary Report Dictated by Resident: Hayden Murphy the attending radiologist I was present in the room for the entirety ofthe procedure.I, Neris Grier MD., have reviewed this study and agree with the abovereport.[facility] HospitalBODY FLUID CULTURE(AEROBIC/ANAEROBIC)2020-04-16 19:45:00 Test Item Value Reference Range Interpretation Comments BODY FLUID CULT 2+ Bacteroides fragillis (test code = 611-4) Gram stain (test Occasional (Rare) code = 664-3) Mononuclear cells [facility] HospitalPROTHROMBIN TIME / [id number] 16:38:00 Test Item Value Reference Range Interpretation Comments PROTIME PATIENT (test See_Comment H [Auto mated message] code = 5964-2) The system [employer] generated this result transmitted ref erence range: 10.1 - 1 2.6 Seconds. The reference range was not used to int erpret this result as normal/abnormal . INR (test code = 6301-6) Nor mal INR <1.1; Warfarin Therap eutic range 2.0 to 3. 0 or 2.5 to 3.5, dep ending upon the indica tions. Lab Interpretation (test Abnormal code = 78768-6) [facility] HospitalCT ABDOMEN PELVIS W [id number] 13:40:08Impression: 1. ?Interval placement of 4 percutaneous [...] and oral contrast seen up to the ostomy.[facility] (NA, K, CL, CO2, GLUCOSE, BUN, CREATININE, CA)2020-04-16 10:51:00 Test Item Value Reference Range Interpretation Comments NA (test code = 132 mmol/L 135-145 L 1655484147) K (test code = 4.1 mmol/L 3.5-5 5307948815) CL (test code = 103 mmol/L 98-108 6652487765) CO2 TOTAL (test code = 24 mmol/L 23-31 7001914564) AGAP (test code = 2-16 9486863401) BUN (test code = 13 mg/dL 7-23 0574942633) GLUCOSE (test code = 132 mg/dL 70-110 H 2675962308) CREATININE (test code = 0.77 mg/dL 0.6-1.25 3142083371) CALCIUM (test code = 7.4 mg/dL 8.6-10.6 L 8685471683) eGFR Calculation mL/min/1.73m2 (Non-) (test code = 6761332637) eGFR Calculation mL/min/1.73m2 () (test code = 7278732167) GILBERTO (test code = GILBERTO) Association of [...] tests). Lab Interpretation Abnormal (test code = 66650-8) [facility] HospitalMAGNESIUM2020-08-24 10:51:00 Test Item Value Reference Range Interpretation Comments MAGNESIUM (test code = 6624460068) 2.2 mg/dL 1.7-2.4 Lab Interpretation (test code = Normal 74208-0) [facility]PHOS[facility]2020-08-24 10:51:00 Test Item Value Reference Range Interpretation Comments PHOSPHORUS (test code = 1897570555) 3.1 mg/dL 2.5-5 Lab Interpretation (test code = Normal 39580-9) [facility] HospitalCB WITH [id number] 10:37:00 Test Item Value Reference Range Interpretation [...] RDW-SD (test code = 47.4 fL 38.5-51.6 41977-5) RDW-CV (test code = 14.7 % 12.1-15.4 788-0) PLT (test code = See_Comment H [Automated 777-3) message] The system which generated this result transmit dain reference range : 150 - 328 10*3/ ?L. The reference range was not u sed to interpret th is result as normal/abnormal . MPV (test code = 10.1 fL 9.8-13 39707-8) NRBC/100 WBC (test See_Comment [Automat ed code = 4234110757) message] The system which generated this result transmit dain reference range : 0.0 - 10.0 /100 WBCs. The reference range was not used to interpret this result as normal/abnormal . NRBC x10^3 (test code <0.01 See_Comment [Auto mated = 4645936789) message] The system which generated this result transmit dain reference range : 10*3/?L. The reference range was not used to interpret this result as normal/abnormal . GRAN MAT (NEUT) % 83.0 % (test code = 770-8) IMM GRAN % (test code 1.50 % = 5990558448) LYMPH % (test code = 7.6 % 736-9) MONO % (test code = 7.3 % 5905-5) EOS % (test code = 0.3 % 713-8) BASO % (test code = 0.3 % 706-2) GRAN MAT x10^3(ANC) 11.53 10*3/uL 1.99-6.95 H (test code = 2707738836) IMM GRAN x10^3 (test 0.21 10*3/uL 0-0.06 H code = 2599665596) LYMPH x10^3 (test code 1.05 10*3/uL 1.09-3.23 L = 731-0) MONO x10^3 (test code 1.01 10*3/uL 0.36-1.02 = 742-7) EOS x10^3 (test code = 0.04 10*3/uL 0.06-0.53 L 711-2) BASO x10^3 (test code 0.04 10*3/uL 0.01-0.09 = 704-7) Lab Interpretation Abnormal (test code = 76001-8) [facility] METABOLIC PANEL (NA, K, CL, CO2, GLUCOSE, BUN, CREATININE, CA)2020-04-15 11:01:00 Test Item Value Reference Range Interpretation Comments NA (test code = 132 mmol/L 135-145 L 1522260797) K (test code = 4.7 mmol/L 3.5-5 8987620932) CL (test code = 103 mmol/L 98-108 9556699264) CO2 TOTAL (test code = 22 mmol/L 23-31 L 4688704424) AGAP (test code = 2-16 6119864474) BUN (test code = 14 mg/dL 7-23 4800293204) GLUCOSE (test code = 114 mg/dL 70-110 H 3478336252) CREATININE (test code = 0.74 mg/dL 0.6-1.25 4578629424) CALCIUM (test code = 7.9 mg/dL 8.6-10.6 L 9838053307) eGFR Calculation mL/min/1.73m2 (Non-) (test code = 1029982470) eGFR Calculation mL/min/1.73m2 () (test code = 3894674151) GILBERTO (test code = GILBERTO) Association of [...] tests). Lab Interpretation Abnormal (test code = 81470-6) [facility]2020-08-23 11:01:00 Test Item Value Reference Range Interpretation Comments MAGNESIUM (test code = 8458085859) 2.1 mg/dL 1.7-2.4 Lab Interpretation (test code = Normal 89589-7) [facility]PH[facility]2020-08-23 11:01:00 Test Item Value Reference Range Interpretation Comments PHOSPHORUS (test code = 7982211018) 3.4 mg/dL 2.5-5 Lab Interpretation (test code = Normal 62112-0) [facility] HospitalCB WITH [id number] 10:46:00 Test Item Value Reference Range Interpretation [...] RDW-SD (test code = 47.7 fL 38.5-51.6 53237-6) RDW-CV (test code = 15.0 % 12.1-15.4 788-0) PLT (test code = See_Comment H [Automated 777-3) message] The system which generated this result transmit dain reference range : 150 - 328 10*3/ ?L. The reference range was not u sed to interpret th is result as normal/abnormal . MPV (test code = 10.4 fL 9.8-13 97050-1) NRBC/100 WBC (test See_Comment [Automat ed code = 2364723995) message] The system which generated this result transmit dain reference range : 0.0 - 10.0 /100 WBCs. The reference range was not used to interpret this result as normal/abnormal . NRBC x10^3 (test code <0.01 See_Comment [Auto mated = 2268000221) message] The system which generated this result transmit dain reference range : 10*3/?L. The reference range was not used to interpret this result as normal/abnormal . GRAN MAT (NEUT) % 85.0 % (test code = 770-8) IMM GRAN % (test code 1.10 % = 0821128185) LYMPH % (test code = 7.2 % 736-9) MONO % (test code = 6.4 % 5905-5) EOS % (test code = 0.1 % 713-8) BASO % (test code = 0.2 % 706-2) GRAN MAT x10^3(ANC) 14.87 10*3/uL 1.99-6.95 H (test code = 7271072621) IMM GRAN x10^3 (test 0.20 10*3/uL 0-0.06 H code = 9714782489) LYMPH x10^3 (test code 1.25 10*3/uL 1.09-3.23 = 731-0) MONO x10^3 (test code 1.11 10*3/uL 0.36-1.02 H = 742-7) EOS x10^3 (test code = <0.03 0.06-0.53 L 711-2) BASO x10^3 (test code 0.03 10*3/uL 0.01-0.09 = 704-7) Lab Interpretation Abnormal (test code = 85975-5) [facility] METABOLIC PANEL (NA, K, CL, CO2, GLUCOSE, BUN, CREATININE, CA)2020-04-14 12:15:00 Test Item Value Reference Range Interpretation Comments NA (test code = 134 mmol/L 135-145 L 1714583052) K (test code = 4.9 mmol/L 3.5-5 3089697037) CL (test code = 105 mmol/L 98-108 2887566887) CO2 TOTAL (test code = 23 mmol/L 23-31 2263960443) AGAP (test code = 2-16 4142834697) BUN (test code = 16 mg/dL 7-23 2234178893) GLUCOSE (test code = 102 mg/dL 70-110 3830505296) CREATININE (test code = 0.82 mg/dL 0.6-1.25 2120172011) CALCIUM (test code = 7.9 mg/dL 8.6-10.6 L 3596346188) eGFR Calculation mL/min/1.73m2 (Non-) (test code = 8906835873) eGFR Calculation mL/min/1.73m2 () (test code = 8273196538) GILBERTO (test code = GILBERTO) Association of [...] tests). Lab Interpretation Abnormal (test code = 44206-1) [facility]2020-[facility]-22 12:15:00 Test Item Value Reference Range Interpretation Comments MAGNESIUM (test code = 4469982998) 2.1 mg/dL 1.7-2.4 Lab Interpretation (test code = Normal 59261-7) [facility]PH[facility]2020-08-22 12:15:00 Test Item Value Reference Range Interpretation Comments PHOSPHORUS (test code = 8135027858) 4.2 mg/dL 2.5-5 Lab Interpretation (test code = Normal 49406-8) [facility] HospitalCBC WITH [id number] 11:49:00 Test Item Value Reference Range Interpretation [...] RDW-SD (test code = 48.1 fL 38.5-51.6 57358-5) RDW-CV (test code = 15.1 % 12.1-15.4 788-0) PLT (test code = See_Comment H [Automated 777-3) message] The system which generated this result transmit dain reference range : 150 - 328 10*3/ ?L. The reference range was not u sed to interpret th is result as normal/abnormal . MPV (test code = 10.7 fL 9.8-13 65464-1) NRBC/100 WBC (test See_Comment [Automat ed code = 5213736201) message] The system which generated this result transmit dain reference range : 0.0 - 10.0 /100 WBCs. The reference range was not used to interpret this result as normal/abnormal . NRBC x10^3 (test code <0.01 See_Comment [Auto mated = 8223789661) message] The system which generated this result transmit dain reference range : 10*3/?L. The reference range was not used to interpret this result as normal/abnormal . GRAN MAT (NEUT) % 84.4 % (test code = 770-8) IMM GRAN % (test code 1.10 % = 0659620596) LYMPH % (test code = 7.4 % 736-9) MONO % (test code = 6.8 % 5905-5) EOS % (test code = 0.1 % 713-8) BASO % (test code = 0.2 % 706-2) GRAN MAT x10^3(ANC) 13.45 10*3/uL 1.99-6.95 H (test code = 4363806836) IMM GRAN x10^3 (test 0.18 10*3/uL 0-0.06 H code = 8825142774) LYMPH x10^3 (test code 1.18 10*3/uL 1.09-3.23 = 731-0) MONO x10^3 (test code 1.09 10*3/uL 0.36-1.02 H = 742-7) EOS x10^3 (test code = <0.03 0.06-0.53 L 711-2) BASO x10^3 (test code 0.03 10*3/uL 0.01-0.09 = 704-7) Lab Interpretation Abnormal (test code = 61807-1) [facility] TOTAL BODY [id number] 01:27:00 Test Item Value Reference Range Interpretation Comments LDH BF (test code = >6450 U/L 3494788165) UNSPUN BODY FLUID Yellow COLOR (test code = 7597115701) UNSPUN BODY FLUID Turbid CLARITY (test code = 9943049958) SPUN BODY FLUID Yellow COLOR (test code = 6788512962) SPUN BODY FLUID Clear CLARITY (test code = 4417645734) Sediment (test code The sediment volume is 0.1 = 9316238418) mLs of the total fluid volume of 5mLs and its color is Red/White. GILBERTO (test code = Test developed and GILBERTO) characteristics determined by [facility] Laboratory Services. [facility] METABOLIC PANEL (NA, K, CL, CO2, GLUCOSE, BUN, CREATININE, CA)2020-04-14 00:15:00 Test Item Value Reference Range Interpretation Comments NA (test code = 132 mmol/L 135-145 L 4537326320) K (test code = 5.3 mmol/L 3.5-5 H 1666781068) CL (test code = 105 mmol/L 98-108 5209635900) CO2 TOTAL (test code = 20 mmol/L 23-31 L 4584030449) AGAP (test code = 2-16 8039076885) BUN (test code = 14 mg/dL 7-23 8779842384) GLUCOSE (test code = 280 mg/dL 70-110 H 1076154265) CREATININE (test code = 0.75 mg/dL 0.6-1.25 8579268455) CALCIUM (test code = 7.4 mg/dL 8.6-10.6 L 9899144080) eGFR Calculation mL/min/1.73m2 (Non-) (test code = 5982589988) eGFR Calculation mL/min/1.73m2 () (test code = 0863186524) GILBERTO (test code = GILBERTO) Association of [...] tests). Lab Interpretation Abnormal (test code = 41808-6) [facility] WITHOUT [id number] 00:01:00 Test Item Value Reference Range Interpretation Comments WBC (test code = 6690-2) See_Comment H [A utomated message] The system [employer] generated this result transmit dain reference range : 4.20 - 10.70 10*3/?L. The reference range was not used to interpret this result as normal/abnormal . RBC (test code = 789-8) See_Comment L [Au tomated message] The system [employer] generated this result transmit dain reference range [...] See_Comment H [Au tomated message] The system [employer] generated this result transmit dain reference range : 150 - 328 10*3/?L. The reference range was not used to interpret this result as normal/abnormal . MPV (test code = 10.2 fL 9.8-13 06928-7) RDW-CV (test code = 15.3 % 12.1-15.4 788-0) RDW-SD (test code = 49.1 fL 38.5-51.6 79541-2) NRBC x10^3 (test code = <0.01 See_Comment [Au tomated message] 5655466357) The system [employer] generated this result transmit dain reference range : 10*3/?L. The reference range was not used to interpret this result as normal/abnormal . NRBC/100 WBC (test code See_Comment [Au tomated message] = 2984865100) The system [employer] generated this result transmit dain reference range : 0.0 - 10.0 /100 WBC s. The reference r meredith was not used to interpret this result as normal/abnormal . IPF % (test code = 6196665029) Lab Interpretation (test Abnormal code = 67572-5) [facility] HospitalB[facility] FL[facility] DIRECT [id number] 23:40:00 Test Item Value Reference Range Interpretation Comments BF COLOR Yellow (test code = 1732533161) BF WBC Count See_Comment [Automated (test code = message] The sy stem 7000542680) which generated this result transmitted reference range : /?L. The refere nce range was not u sed to interpret th is result as normal/abnormal . BF RBC Count <3000 See_Comment [Automated (test code = message] The sy stem 4668699098) which generated this result transmitted reference range : /?L. The refere nce range was not u sed to interpret th is result as normal/abnormal . GILBERTO (test The reference range code = GILBERTO) and other method performance specifications have not been established for this body fluid. ?The test results must be integrated into the clinical context for interpretation. [facility] HospitalBODY FLUID MANUAL [id number] 23:40:00 Test Item Value Reference Range Interpretation Comments BF SEGS (test code 99 % = 9934861951) BF LYMPHS (test 1 % code = 0431049653) #CELS CNTD (test code = 6757656905) GILBERTO (test code = Possible intracellular GILBERTO) bacteria. [facility] HospitalGLUCOSE BODY [id number] 23:17:00 Test Item Value Reference Range Interpretation Comments GLUCOSE BF (test <20 mg/dL code = 7274944086) UNSPUN BODY FLUID Yellow COLOR (test code = 8104090244) UNSPUN BODY FLUID Turbid CLARITY (test code = 0379995306) SPUN BODY FLUID Yellow COLOR (test code = 5444095142) SPUN BODY FLUID Clear CLARITY (test code = 6521321278) Sediment (test code The sediment volume is 0.1 = 6452561447) mLs of the total fluid volume of 5mLs and its color is Red/White. GILBERTO (test code = Test developed and GILBERTO) characteristics determined by [facility] Laboratory Services. [facility] HospitalT.PROTEIN BODY [id number] 22:52:00 Test Item Value Reference Range Interpretation Comments T.PROT BF (test 3000.0 mg/dL code = 5500681713) UNSPUN BODY FLUID Yellow COLOR (test code = 6549595517) UNSPUN BODY FLUID Turbid CLARITY (test code = 8208056883) SPUN BODY FLUID Yellow COLOR (test code = 0244742464) SPUN BODY FLUID Clear CLARITY (test code = 5798833263) Sediment (test code The sediment volume is 0.1 = 4927197896) mLs of the total fluid volume of 5mLs and its color is Red/White. GILBERTO (test code = Test developed and GILBERTO) characteristics determined by [facility] Laboratory Services. [facility] HospitalURINE [id number] 19:44:00 Test Item Value Reference Range Interpretation Comments URINE CULTURE (test No aerobic growth (< code = 630-4) 1000 CFU/mL) [facility] HospitalGRAM NEGATIVE BLOOD PATHOGENS DNA [id number] 13:23:00 Test Item Value Reference Range Interpretation Comments Enterobacter species Positive Negative A (test code = 33010-7) GILBERTO (test code = GILBERTO) See blood culture result for additional information. ?Testing included eight identification and six resistance marker targets. Lab Interpretation Abnormal (test code = 72967-1) [facility] HospitalCBC WITH [id number] 12:43:00 Test Item Value Reference Range Interpretation [...] RDW-SD (test code = 49.8 fL 38.5-51.6 00794-3) RDW-CV (test code = 15.3 % 12.1-15.4 788-0) PLT (test code = See_Comment H [Automated 777-3) message] The system which generated this result transmit dain reference range : 150 - 328 10*3/ ?L. The reference range was not u sed to interpret th is result as normal/abnormal . MPV (test code = 10.7 fL 9.8-13 15294-0) NRBC/100 WBC (test See_Comment [Automat ed code = 4986101368) message] The system which generated this result transmit dain reference range : 0.0 - 10.0 /100 WBCs. The reference range was not used to interpret this result as normal/abnormal . NRBC x10^3 (test code <0.01 See_Comment [Auto mated = 6109778233) message] The system which generated this result transmit dain reference range : 10*3/?L. The reference range was not used to interpret this result as normal/abnormal . GRAN MAT (NEUT) % 81.3 % (test code = 770-8) IMM GRAN % (test code 1.40 % = 3414781146) LYMPH % (test code = 8.0 % 736-9) MONO % (test code = 8.9 % 5905-5) EOS % (test code = 0.2 % 713-8) BASO % (test code = 0.2 % 706-2) GRAN MAT x10^3(ANC) 10.74 10*3/uL 1.99-6.95 H (test code = 5116364682) IMM GRAN x10^3 (test 0.18 10*3/uL 0-0.06 H code = 7321201336) LYMPH x10^3 (test code 1.06 10*3/uL 1.09-3.23 L = 731-0) MONO x10^3 (test code 1.17 10*3/uL 0.36-1.02 H = 742-7) EOS x10^3 (test code = <0.03 0.06-0.53 L 711-2) BASO x10^3 (test code <0.03 0.01-0.09 = 704-7) Lab Interpretation Abnormal (test code = 04150-2) [facility] METABOLIC PANEL (NA, K, CL, CO2, GLUCOSE, BUN, CREATININE, CA)2020-04-13 11:57:00 Test Item Value Reference Range Interpretation Comments NA (test code = 134 mmol/L 135-145 L 7994662241) K (test code = 4.6 mmol/L 3.5-5 3946184602) CL (test code = 106 mmol/L 98-108 0987770829) CO2 TOTAL (test code = 23 mmol/L 23-31 3865186793) AGAP (test code = 2-16 5854427712) BUN (test code = 14 mg/dL 7-23 0710657405) GLUCOSE (test code = 106 mg/dL 70-110 9660768852) CREATININE (test code = 0.84 mg/dL 0.6-1.25 2902785437) CALCIUM (test code = 7.7 mg/dL 8.6-10.6 L 7931986771) eGFR Calculation mL/min/1.73m2 (Non-) (test code = 7686964778) eGFR Calculation mL/min/1.73m2 () (test code = 8305869786) GILBERTO (test code = GILBERTO) Association of [...] tests). Lab Interpretation Abnormal (test code = 53297-0) [facility] HospitalMAGNESIUM2020-08-21 11:57:00 Test Item Value Reference Range Interpretation Comments MAGNESIUM (test code = 9743865675) 2.1 mg/dL 1.7-2.4 Lab Interpretation (test code = Normal 38843-0) [facility] HospitalPHOSPHORUS2020-08-21 11:57:00 Test Item Value Reference Range Interpretation Comments PHOSPHORUS (test code = 6594305408) 3.4 mg/dL 2.5-5 Lab Interpretation (test code = Normal 12985-9) [facility] HospitalCT ABDOMEN PELVIS W [id number] 00:22:08 1. ?Multiple intraperitoneal collections as detailed [...] this study and agree with the abovereport. [facility] HospitalURINALYSIS2020-08-20 23:20:00 Test Item Value Reference Range Interpretation Comments APPEARANCE (test code = Clear Clear 6149418226) COLOR (test code = Yellow Yellow 9745785400) PH (test code = 4.8-8.0 4441379905) SP GRAVITY (test code = 1.003-1.030 0589809333) GLU U QUAL (test code = Normal Normal 4880231952) BLOOD (test code = Negative Negative 5733009859) KETONES (test code = Negative Negative 0620475136) PROTEIN (test code = 30 mg/dL Negative A 2887-8) UROBILIN (test code = Normal Normal 8095335029) BILIRUBIN (test code = Negative Negative 5260667955) NITRITE (test code = Negative Negative 1026810101) LEUK ROGER (test code = Negative Negative 0889886093) RBC/HPF (test code = See_Comment [Autom ated message] 0384541716) The system [employer] generated this result transmitted ref erence range: 0 - 3 HP F. The reference range was not used to int erpret this result as normal/abnormal . WBC/HPF (test code = <1 See_Comment [Autom ated message] 9328773408) The system [employer] generated this result transmitted ref erence range: 0 - 5 HP F. The reference range was not used to int erpret this result as normal/abnormal . BACTERIA (test code = Negative Negative 0040477268) MUCOUS (test code = Slight Negative LPF A 5855191004) SQ EPITH (test code = See_Comment [Auto mated message] 3373625447) The system [employer] generated this result transmitted ref erence range: <=2 HPF. The reference range was not used to int erpret this result as normal/abnormal . Lab Interpretation (test Abnormal code = 13480-3) [facility] WITH [id number] 12:08:00 Test Item Value Reference Range Interpretation [...] RDW-SD (test code = 48.9 fL 38.5-51.6 16417-8) RDW-CV (test code = 15.4 % 12.1-15.4 788-0) PLT (test code = See_Comment [Automated 777-3) message] The sy stem which generated this result transmitted reference range : 150 - 328 10*3/ ?L. The reference r meredith was not used to interpret this result as normal/abnormal . MPV (test code = 11.2 fL 9.8-13 12043-3) NRBC/100 WBC (test See_Comment [Automat ed code = 8789942602) message] The system which generated this result transmitted reference range : 0.0 - 10.0 /100 WBCs. The refer ence range was not u sed to interpret th is result as normal/abnormal . NRBC x10^3 (test code <0.01 See_Comment [Auto mated = 2766088290) message] The s ystem which generated this result transmitted reference range : 10*3/?L. The reference range was not used to interpret this result as normal/abnormal . GRAN MAT (NEUT) % 79.9 % (test code = 770-8) IMM GRAN % (test code 1.30 % = 1401343803) LYMPH % (test code = 7.4 % 736-9) MONO % (test code = 11.0 % 5905-5) EOS % (test code = 0.2 % 713-8) BASO % (test code = 0.2 % 706-2) GRAN MAT x10^3(ANC) 9.56 10*3/uL 1.99-6.95 H (test code = 7069229521) IMM GRAN x10^3 (test 0.15 10*3/uL 0-0.06 H code = 5511083135) LYMPH x10^3 (test code 0.89 10*3/uL 1.09-3.23 L = 731-0) MONO x10^3 (test code 1.32 10*3/uL 0.36-1.02 H = 742-7) EOS x10^3 (test code = <0.03 0.06-0.53 L 711-2) BASO x10^3 (test code <0.03 0.01-0.09 = 704-7) Lab Interpretation Abnormal (test code = 86251-5) [facility] METABOLIC PANEL (NA, K, CL, CO2, GLUCOSE, BUN, CREATININE, CA)2020-04-12 10:43:00 Test Item Value Reference Range Interpretation Comments NA (test code = 133 mmol/L 135-145 L 6763261759) K (test code = 4.3 mmol/L 3.5-5 2284729755) CL (test code = 104 mmol/L 98-108 7319788966) CO2 TOTAL (test code = 22 mmol/L 23-31 L 9689644663) AGAP (test code = 2-16 7295791291) BUN (test code = 20 mg/dL 7-23 1381722351) GLUCOSE (test code = 108 mg/dL 70-110 3544014814) CREATININE (test code = 0.77 mg/dL 0.6-1.25 6834036959) CALCIUM (test code = 8.1 mg/dL 8.6-10.6 L 2998379535) eGFR Calculation mL/min/1.73m2 (Non-) (test code = 8957984952) eGFR Calculation mL/min/1.73m2 () (test code = 2799247894) GILBERTO (test code = GILBERTO) Association of [...] tests). Lab Interpretation Abnormal (test code = 25262-9) [facility] HospitalMAGNESIUM2020-08-20 10:43:00 Test Item Value Reference Range Interpretation Comments MAGNESIUM (test code = 6868511607) 2.0 mg/dL 1.7-2.4 Lab Interpretation (test code = Normal 80341-9) [facility] HospitalPHOSPHORUS2020-08-20 10:43:00 Test Item Value Reference Range Interpretation Comments PHOSPHORUS (test code = 3889840514) 4.3 mg/dL 2.5-5 Lab Interpretation (test code = Normal 57668-7) [facility] HospitalBLOOD CULTURE [id number] 04:01:00 Test Item Value Reference Range Interpretation Comments Blood Culture-Aerobic No organisms No growth Previo us (test code = 62672-3) isolated prelim inary verified result was Culture [...] Culture-Anaerobic isolated preliminar y (test code = 67911-3) verifi ed result was Culture In Progress [...] CDT Lab Interpretation Normal (test code = 16339-2) [facility] HospitalBLOOD CULTURE [id number] 04:01:00 Test Item Value Reference Range Interpretation Comments Blood Culture-Aerobic No organisms No growth Previo us (test code = 08047-0) isolated prelim inary verified result was Culture [...] Culture-Anaerobic isolated preliminar y (test code = 83685-0) verifi ed result was Culture In Progress [...] CDT Lab Interpretation Normal (test code = 97403-2) [facility] (NA, K, CL, CO2, GLUCOSE, BUN, CREATININE, CA)2020-04-11 10:13:00 Test Item Value Reference Range Interpretation Comments NA (test code = 138 mmol/L 135-145 1319891405) K (test code = 3.9 mmol/L 3.5-5 6809436161) CL (test code = 106 mmol/L 98-108 0682786931) CO2 TOTAL (test code = 27 mmol/L 23-31 0805893589) AGAP (test code = 2-16 0010765977) BUN (test code = 24 mg/dL 7-23 H 3370899392) GLUCOSE (test code = 97 mg/dL 70-110 0253968459) CREATININE (test code = 0.63 mg/dL 0.6-1.25 1267820309) CALCIUM (test code = 8.1 mg/dL 8.6-10.6 L 4918479537) eGFR Calculation mL/min/1.73m2 (Non-) (test code = 1969470303) eGFR Calculation mL/min/1.73m2 () (test code = 3898233140) GILBERTO (test code = GILBERTO) Association of [...] tests). Lab Interpretation Abnormal (test code = 51307-4) [facility] HospitalMAG[facility]UM2020-08-19 10:13:00 Test Item Value Reference Range Interpretation Comments MAGNESIUM (test code = 1702756577) 1.8 mg/dL 1.7-2.4 Lab Interpretation (test code = Normal 36956-6) [facility] HospitalPHOSPH[facility]US2020-08-19 10:13:00 Test Item Value Reference Range Interpretation Comments PHOSPHORUS (test code = 6322402144) 3.6 mg/dL 2.5-5 Lab Interpretation (test code = Normal 24689-7) [facility] WITH [id number] 10:06:00 Test Item Value Reference Range Interpretation [...] RDW-SD (test code = 48.9 fL 38.5-51.6 39152-6) RDW-CV (test code = 15.3 % 12.1-15.4 788-0) PLT (test code = See_Comment [Automated 777-3) message] The sy stem which generated this result transmitted reference range : 150 - 328 10*3/ ?L. The reference r meredith was not used to interpret this result as normal/abnormal . MPV (test code = 11.7 fL 9.8-13 04377-5) NRBC/100 WBC (test See_Comment [Automat ed code = 2555292827) message] The system which generated this result transmitted reference range : 0.0 - 10.0 /100 WBCs. The refer ence range was not u sed to interpret th is result as normal/abnormal . NRBC x10^3 (test code <0.01 See_Comment [Auto mated = 0039046337) message] The s ystem which generated this result transmitted reference range : 10*3/?L. The reference range was not used to interpret this result as normal/abnormal . GRAN MAT (NEUT) % 75.6 % (test code = 770-8) IMM GRAN % (test code 1.10 % = 6121264060) LYMPH % (test code = 10.5 % 736-9) MONO % (test code = 11.0 % 5905-5) EOS % (test code = 1.5 % 713-8) BASO % (test code = 0.3 % 706-2) GRAN MAT x10^3(ANC) 5.56 10*3/uL 1.99-6.95 (test code = 4057740666) IMM GRAN x10^3 (test 0.08 10*3/uL 0-0.06 H code = 7890009967) LYMPH x10^3 (test code 0.77 10*3/uL 1.09-3.23 L = 731-0) MONO x10^3 (test code 0.81 10*3/uL 0.36-1.02 = 742-7) EOS x10^3 (test code = 0.11 10*3/uL 0.06-0.53 711-2) BASO x10^3 (test code <0.03 0.01-0.09 = 704-7) TOXIC CHANGES (test Present A code = 803-7) Lab Interpretation Abnormal (test code = 02579-7) [facility] HospitalSUR[facility] PATHOLOGY [id number] 22:00:00 Test Item Value Reference Range Interpretation Comments Case Report (test code Surgical Pathology ? ? = [id number]) ?Case: [id number] ? Authorizing Provider: ?Juventino Mccabe MD ? Collected: ? 04/06/2020 1012 ?Ordering Location: ? ? [facility] OR ? Received: ?04/06/2020 1146 ? Department ? Pathologist: ? He, Shaneka, MD ? Specimen: ? ?SOFT TISSUE, OTHER, ileo rectal anastamosis ? Final Diagnosis (test n4qyhDKiPVXpb2eiZOPtqU code = 8544509891) FuZzEwMzNcZnRuYmpcdWMx UCvoejPwOIcnr8FlH8BtHz AwMFxhbnNpXGRlZmxhbmcx CUQwDTU8nhMxRXNbIFfsNG JtFEibZc2tvLFojYfhFtZy OPMax4dtgbVJbyzpeQp7a0 ezLVVwSbN9kHQoWEgdW7zp mtVpbNWgLUHyWVt1fX02DZ SlzS7egJMyTIxrhhQrGaV4 LHulJHCsAeB0MAVqqDFbXC WsQ4vtKTDzHXeqNJYqEEwr yUMzLFO2oPqde0N3hPSpmQ ZtsMsrQdUyQtIcPIRNy6Bd TGm3iZwpZ1IkNNNuCzP0gS QgUGFyYWdyYXBoIEZvbnQ7 lE35OMubrxM4dDBfr0Cqe8 7fe409hO4alIUdIXX3TFDp WEVnhARzXHOvBVH8ONGetQ ZkE4skPCxpHK2xprnsOAA1 MFxtYXJndDcyMFxtYXJnYj StdGKsFHZkvSaqCWxrk561 SVT2HhOnAB6fQ9Cqd8R0jG 9maXRcZGVmdGFiNzIwXGZv gp3jkJNaNTpda5RcPVQ3ex T8hPFscMWlAGVcMZ55Iotw v3HyBnhkLKG0JTMussNdb5 Ypb5skWqBcqzHfE1wyV3Pv ZHJoZWFkXHBnYnJkcmZvb3 Wfx9YszJCrmPa8h1hdZZGg NKKshBuau8uiALX9FLJbX4 K2rJBpn0lqASjgPAYxfWT3 zvBbCMYftTEqI0FacD2hLP unVM9irkh7e1stFhTdGG3g czaqc3awIZzzKLJqUMX8Kj HaBZBpo3MnqhbaNkUze3Ez oLGwRZezM46bc303HOQott IzE0lidEDpmzlqmWByypnz WHszesC1JDQbCGAhLQygOV YxXGZzMjBcbGFuZzEwMzNc aGljaFxmMVxkYmNoXGYxXG isX6hhWjZiOxLgYYgvLXTx CR1yW82OO40uVFwQKL9gXp YSUDZWRNHKKAFZF66XD4dB BJMVNFTfQAECR04DFuSLTW RMXYNEO4UVI495AFPtyeZo EPRrAO7mBeJEBBFJMLEZNW GALVWBVVEIFWJJXPAnJ4oD HOJBFqOHG65BVeJXEQgMNg cGYN4UPQnIJicoCJnPTLYT PStMMxsjD7FHC0WBHPbQHS FORFxwYXIgICAgICAgICBQ VNWHXS5NNKFWX5bfWCLfBB YiEWVdBESMZ1REIKeCYiAS QOISWW4HJLANYRTNHKTRAS VccGFyXHBhclxwbGFpblxm MVxmczIyXGxhbmcxMDMzXG ezQ8ujDgVxAOXxlHzgCKvn e2KpWCCnJIKgVbraasUbQH PoF3fuvLhbBMosGSA9KC8m MV6ZB0eXRAE2QiW4XgLlXd MfJXG4LpEvKA0irUaohD0i AhXuEpXoNFlgZX8kHCCiH5 rsiQAtYRPzEBIqU2fhBuHi yR8swTjjEYstjxOnYQCkcW IyCKWqzp07QCW1PlAfy9B0 VJHfCzGuZQTtUC8cnGeySB AuKE2jJAJaK0vtuY3crvo2 QyViEFKmPpH9MFHecdM0Ty b6OOByFQnam2zia6NzL2Lw xFIiwEt5h3hmQVRzEtN9rC QgKSfxR3dqrqYezBAmVZXi NMi5tIlhHdCuGACsb0npdx BcZmNoYXJzZXQwIENhbGli omx4pI88JREwnT3mvZJsET phbrFbRyT1PLxsXLTjXoN6 ZFKnvEAjCWBzY9xmDHJuBQ bxVXRjUGparHTtMPG1kBtd r7E2dRYmdIHisDvdPdKnEg MvXHQEz7HgCPs9pBvwR2Oz ZZYlHeC7bNLaQMIxZRdaJC HaZGZneoF7rL94MYbpaeD0 yTLef1Mmw38fb956eR0ueH JaZZD9KYQyHHLqgEZdCRLj GVB7YNPjkMPpX1jwWSFdQP 0zljafFJtiHNraXQSfwWF9 EARczGLcM8YmJJZgBFhlOV Hmpdu2OmThDh7ehQOrlHqd ZMxou7mhp1rvxBBoWuy4HS TlGfSlGyonRLfob9Ujv4og GEUcap1sKMK6uAAkgCtlm6 K5kEZrIBLsxAGmbjNhCOCu WfS9TOrbTE5cqi93BKZfAF M7jy1eoXQivRgvzhXhiSVh LYyyI1BaCTKqp770QYJqF0 JsBELty9N8ryOoBxFpOCZj dBS2hsV7QUDvAUq5mWRgjo F3ncPiqTAsB9nkpW7lPJPa BE3qjnwbf7mzLBwxNPbnAN MvuEQ6kgV1FXXacDKfI2Pt eJ6mPJYzCPeiLSCglkb6Kj LlLl5jdPSvsDvvBBtnQqyt YWdlXHBnbmNvbnRccGduZG VjXHBsYWluXHBsYWluXGYw HJHnKmQwtCutpDcufJ6cYl XeDdLaOMccAH8hBJVvP1rw hMUhWLTgINEwZ0pjFxDrdW 9jaFxmMVxjZjJcZnMyMFxw YXIgSSBoYXZlIHBlcnNvbm JuaRjsdrI5fSZ4OPApSEgc KYKaGOZeqXWiso3jhJiiPM OjYI2jWWPydlWyBGtpwHhl OMdzUTC4BQBueYFraAWrcE FkZSBieSByZXNpZGVudHMs DCKiwJott7Pja8KwjED6hZ 7jh5xuh1XsTNUofQF1UP28 pyJ2fJ4gLGGmTX6iLQGhME 4umCOehTBeSNExn50wvEkk cyByZXBvcnQuXHBsYWluXG YyXGZzMjhcbGFuZzEwMzNc aGljaFxmMlxkYmNoXGYyXG gsE6knKsZvWhFcLAhbVTR1 fQ== Clinical Information Abdominal distention (test code = [R14.0] 1419274432) Gross Description (test x0lzsXVdKKIzmMNjSeXkKU code = 5779745935) OdBOKxp3dbROOzoCLvMdVy MzNcZnRuYmpcdWMxXGRlZm Uyg3jzf291oDKlq6ccUJRh HjB5yZPqLZHtuGYdJ087DP HuLAijz5tur5DrQEYzuLLz i2S5CALUjobvxSy0rYkeH2 2hf2C1JhgaS6rwVZXxHTlh DSBqNAvdkDXjXBW0OQZoTQ W9AIcfmrHpqaZ7UDyweFLz DyH0DSo8p3dytSqmRJQoMI W0d7dwPCrlnyMlTU6ots8q oWi4n6bdswHxHBAlVBYdqL WKYDSwZ8DjgQfkHt5gdLq1 lHzdFtbjABZ9Xxt7QA7yhq 90qrg5oRomEWLjlbcmEmD3 LFxtYTJoopzqBUd0TGxzJV SkeZZdGZKlgUBuS6JnRFhu LS7lnct5MlLnLD1qejjlXH zyNZTpWNW5CdUzWJRue7Vt ycpnFiLcip4ddg24TPW5f3 UfuPgfTOT0LSK3RiYgEf6w wBRvRBMsXY6jQnGygDVaIJ Twxm60oPfaKKacdiEkxM8p HkVgSJSfuDVfHPLtNV0oxO MfNSBqpV3iwvsxLPLgHaEd xqutFKSgwBxkzsWkBz8pwR pcLEZ5AFanX0jekN3jItQ8 MKkfI1jqyW3nYAy3CZvneT Q7VJAvrP1mHO9csbtdp3wz HEX1DEwxBXZuvqW8dnLyNO AfjKVhS3LhsX28AcHsvQOc C1HfdY2wNWlrCZEwbmu3Bd GeYp9xuVEmfHC3PFlkXikq YWdlXHBnbmNvbnRccGduZG VjXHBsYWluXHBsYWluXGYw NIIiJqGuySkjzKjmoL7oKx BcZnMyMFxwbGFpblxmMFxm czIwIFNwZWNpbWVuIEEgcm DsHIu2ZXVdGaYgl4ipaJJu IEymCDQ0jBKmLGKzUIJaOV NpQA47P8UmsyCfIHpsNYdu xgQjKpAcCBSks11xlPE2kT HduJOqLRruUXRcFSNbG2Tl qWGkugRfmZ9np5EfszEeCU 9iHZLdevPba4EeOV0zLYBt z3VruIXytBChWTLlw6EzxZ vyitTcDxBudK9hKGOqiaJw l3gybAQtBQ24FUToVSvhBT nsdnj2vSRpgkEakcMqA0qy WeImkd7iNNNoHLjjaBOklf scSMqamwYdIWR4ZsHdGIoa OVHbpGipfW0rVzPbMvVcOC L3UzBaW15bVHbibFG1VSUf PPTkiiIgx9CvaiUad7w1nE XceAXgXIBoY9BjlXUsgsNy sZ8tb8Lbak2aKBNGcATzk4 Eqw9WscHHoZKNpy6TqnNyp gfMdIX9xLXlgKX2vKKYsMS epxMGspa44EGEbETJkrGls EMXdIMM3s27nq9ymKXVfbM BrMR2eZDA6mEUofiSqqSA5 iXKfAsAqCCftzJL5QTNcYA kaZHJDlNJamRFtMr7cVIFj i37xzFWklU9sBJDdLJTqTw UpS76gOzAntVC1pKZluHva OYfdsCByG7pmJZRgPTAqOo UoCcZiwGD8vKBjsaIluCOv RF5wwqfcmy4hLGtxDTD2lo tjQ6WmUJ2tukyqhjSjCBKz ZB4uKS3hJNIqseLraTkwDB RmJPAgkGQlZVghYBmoU7xv BIQglwS4QOUnbT2dJUTnhD UkCo0mLIHck81kx5p7OSD0 pGCkuY9djLdmLBYbVND3z4 5sv3pdMSM3YJPoPKXtoY2l IvKdXkIbHEssZNBuFB3dCA BvCDOorKBni2DqwUDftZ1e BNUvdtXgqxLlRIAcyHN5k7 WrHLAphDKcd7PtXBH7bGQt YTNdpsNkCUIeODJwZT9ebX GuXIYrjMGwd8YjeSI7iISf RIClQ1Epf86zDGVxCPVttD ZlaIT6MTEcDQYePQHmjHge rU4rWlEgDaKzOTd7DSVtJA TqJlj8COOlODweJBAtAPHd MjAgQTQuXHBhclxwYXIgU2 YvbRdwcxNbz6PxOiazMHHk JXM8RYYNEJQ1JCkye5MeB5 xcZMfdqXPxY3tmAQSbNVDq PWBbfbMuySq2GItoMGRsSZ O6CGRVyLRmhQKnuCZscCZb uLOdJJLfzX8eXYMwqQQoj0 BsiAG9zDXePIEdktHALnik KMKmsjKkfoN4sF0sTTSkmG NclGEwACG7BnRzLN8apsNz rKFlZRYgVKD2qB0kSX1lCA SwSZejRVGce6KcLSKoWUWy WRWnnkMhoZt8LUeaIIJwzK KsVELfbuBxcBptkS3qObZo ZnMyMFxwbGFpblxmMVxmcz VhJQDelIiiXXJxzHXaJD4A TFgAKNSdv4weR5ochCVJb6 Fqg3OlbfLpVBIeQJbyGTNf XGZzMjBccGFyXHFsXHBsYW nzKYPdCHJkGoAreCofxB0x ZjBcZnMyMFxwYXJccGFyfQ == Embedded Images (test code = 8535407395) [facility] WITH [id number] 11:29:00 Test Item Value Reference Range Interpretation [...] RDW-SD (test code = 48.8 fL 38.5-51.6 85876-4) RDW-CV (test code = 15.2 % 12.1-15.4 788-0) PLT (test code = See_Comment L [Automated 777-3) message] The sy stem which generated this result transmitted reference range : 150 - 328 10*3/ ?L. The reference r meredith was not used to interpret this result as normal/abnormal . MPV (test code = 11.6 fL 9.8-13 89018-1) NRBC/100 WBC (test See_Comment [Automat ed code = 3049566188) message] The system which generated this result transmitted reference range : 0.0 - 10.0 /100 WBCs. The refer ence range was not u sed to interpret th is result as normal/abnormal . NRBC x10^3 (test code <0.01 See_Comment [Auto mated = 9136194936) message] The s ystem which generated this result transmitted reference range : 10*3/?L. The reference range was not used to interpret this result as normal/abnormal . GRAN MAT (NEUT) % 79.1 % (test code = 770-8) IMM GRAN % (test code 0.50 % = 4840877852) LYMPH % (test code = 11.0 % 736-9) MONO % (test code = 7.8 % 5905-5) EOS % (test code = 1.4 % 713-8) BASO % (test code = 0.2 % 706-2) GRAN MAT x10^3(ANC) 4.67 10*3/uL 1.99-6.95 (test code = 4509569617) IMM GRAN x10^3 (test 0.03 10*3/uL 0-0.06 code = 1759824648) LYMPH x10^3 (test code 0.65 10*3/uL 1.09-3.23 L = 731-0) MONO x10^3 (test code 0.46 10*3/uL 0.36-1.02 = 742-7) EOS x10^3 (test code = 0.08 10*3/uL 0.06-0.53 711-2) BASO x10^3 (test code <0.03 0.01-0.09 = 704-7) Lab Interpretation Abnormal (test code = 73811-8) [facility] Test Item Value Reference Range Interpretation Comments MAGNESIUM (test code = 6688575596) 1.7 mg/dL 1.7-2.4 Lab Interpretation (test code = Normal 88870-0) [facility] 11:19:00 Test Item Value Reference Range Interpretation Comments PHOSPHORUS (test code = 8143734183) 3.0 mg/dL 2.5-5 Lab Interpretation (test code = Normal 52620-6) [facility] 1 [id number] 13:59:01 Interval extubation and removal of enteric [...] reviewed this study and agree with theabove report.[facility] (73184[facility] (ALB,T.PRO,BILI T,BU/BC,ALT,AST,ALK PHOS) 2020-04-09 11:52:00 Test Item Value Reference Range Interpretation Comments TOTAL BILI (test code = 2613457165) 1.2 mg/dL 0.1-1.1 H BILI UNCON (test code = 8600449103) 0.8 mg/dL 0.1-1.1 BILI CONJ (test code = 2940442064) 0.0 mg/dL 0-0.3 T PROTEIN (test code = 9100801331) 4.2 g/dL 6.3-8.2 L ALBUMIN (test code = 5641280787) 2.2 g/dL 3.5-5 L ALK PHOS (test code = 0757480934) 36 U/L 34-122 ALTv (test code = 1742-6) 13 U/L 5-50 AST(SGOT) (test code = 1008807003) 23 U/L 13-40 Lab Interpretation (test code = Abnormal 37601-1) [facility] WITH [id number] 10:01:00 Test Item Value Reference Range Interpretation [...] RDW-SD (test code = 47.6 fL 38.5-51.6 06636-3) RDW-CV (test code = 14.8 % 12.1-15.4 788-0) PLT (test code = See_Comment L [Automated 777-3) message] The sy stem which generated this result transmitted reference range : 150 - 328 10*3/ ?L. The reference r meredith was not used to interpret this result as normal/abnormal . MPV (test code = 11.6 fL 9.8-13 20724-3) NRBC/100 WBC (test See_Comment [Automat ed code = 3819432871) message] The system which generated this result transmitted reference range : 0.0 - 10.0 /100 WBCs. The refer ence range was not u sed to interpret th is result as normal/abnormal . NRBC x10^3 (test code <0.01 See_Comment [Auto mated = 8939089796) message] The s ystem which generated this result transmitted reference range : 10*3/?L. The reference range was not used to interpret this result as normal/abnormal . GRAN MAT (NEUT) % 87.5 % (test code = 770-8) IMM GRAN % (test code 0.90 % = 9629849206) LYMPH % (test code = 7.5 % 736-9) MONO % (test code = 3.4 % 5905-5) EOS % (test code = 0.5 % 713-8) BASO % (test code = 0.2 % 706-2) GRAN MAT x10^3(ANC) 5.12 10*3/uL 1.99-6.95 (test code = 2569665050) IMM GRAN x10^3 (test 0.05 10*3/uL 0-0.06 code = 5560315896) LYMPH x10^3 (test code 0.44 10*3/uL 1.09-3.23 L = 731-0) MONO x10^3 (test code 0.20 10*3/uL 0.36-1.02 L = 742-7) EOS x10^3 (test code = 0.03 10*3/uL 0.06-0.53 L 711-2) BASO x10^3 (test code <0.03 0.01-0.09 = 704-7) DOHLE BODIES (test Present A code = 7792-5) TOXIC CHANGES (test Present A code = 803-7) Lab Interpretation Abnormal (test code = 05215-6) [facility] METABOLIC PANEL (NA, K, CL, CO2, GLUCOSE, BUN, CREATININE, CA)2020-04-09 09:37:00 Test Item Value Reference Range Interpretation Comments NA (test code = 135 mmol/L 135-145 5608906758) K (test code = 3.6 mmol/L 3.5-5 7037128431) CL (test code = 105 mmol/L 98-108 3198909718) CO2 TOTAL (test code = 31 mmol/L 23-31 6158885617) AGAP (test code = <1 2-16 L 4678865762) BUN (test code = 28 mg/dL 7-23 H 6915571354) GLUCOSE (test code = 95 mg/dL 70-110 3359495535) CREATININE (test code = 0.78 mg/dL 0.6-1.25 3462673456) CALCIUM (test code = 8.1 mg/dL 8.6-10.6 L 8594833608) eGFR Calculation mL/min/1.73m2 (Non-) (test code = 2780592399) eGFR Calculation mL/min/1.73m2 () (test code = 0081545012) GILBERTO (test code = GILBERTO) Association of [...] tests). Lab Interpretation Abnormal (test code = 88587-6) [facility] Test Item Value Reference Range Interpretation Comments MAGNESIUM (test code = 3285461528) 1.8 mg/dL 1.7-2.4 Lab Interpretation (test code = Normal 96831-1) [facility] 09:36:00 Test Item Value Reference Range Interpretation Comments PHOSPHORUS (test code = 3689283441) 1.8 mg/dL 2.5-5 L Lab Interpretation (test code = Abnormal 81477-2) [facility] + LACTIC [id number] 21:18:00 Test Item Value Reference Range Interpretation Comments PH (test code = 2) 7.35-7.45 PCO2 (test code = See_Comment [Automate d 2197784273) message] The sy stem which generated this result transmitted reference range : 35 - 45 mmHg. The reference range was not used to interpret this result as normal/abnormal . PO2 (test code = See_Comment L [Automated 8585439724) message] The sy stem which generated this result transmitted reference range : 80 - 100 mmHg. The reference range was not used to interpret this result as normal/abnormal . HCO3 (test code = See_Comment [Automate d 1288177616) message] The sy stem which generated this result transmitted reference range : 22 - 26 mEq/L. The reference range was not used to interpret this result as normal/abnormal . BE (test code = See_Comment [Automated 1760357188) message] The sy stem which generated this result transmitted reference range : -3.0 - 3.0 mEq/ L. The reference r meredith was not used to interpret this result as normal/abnormal . THB (test code = 9.2 g/dL 13.5-18 L 6929701183) %O2HB (test code = 94.3 % 94-99 9345802781) %COHB ART (test code = 0.7 % 0-1.5 0928172406) %METHB ART (test code = 0.3 % 0.4-1.5 L 8452061497) VOL%O2 ART (test code = 12.3 % 15-23 L 8714431487) NA (test code = 135 mmol/L 135-145 7209297823) K+ (test code = 3.7 mmol/L 3.5-5 2519638672) AC CA IONZ (test code = 4.90 mg/dL 4.5-5.3 8471532218) GLUCOSE (test code = 94 mg/dL 70-110 8225135330) LACTIC ACID (test code 1.35 mmol/L = 5751461342) Lab Interpretation Abnormal (test code = 02554-1) [facility] GLUCOSE (AUTOMATED)2020-04-08 16:33:00 Test Item Value Reference Range Interpretation Comments POCT GLU (test code = 9630032702) 109 mg/dL 70-110 Lab Interpretation (test code = Normal 01933-0) [facility] GLUCOSE (AUTOMATED)2020-04-08 16:33:00 Test Item Value Reference Range Interpretation Comments POCT GLU (test code = 1246552493) 120 mg/dL 70-110 H Lab Interpretation (test code = Abnormal 77154-3) [facility] GLUCOSE (AUTOMATED)2020-04-08 16:33:00 Test Item Value Reference Range Interpretation Comments POCT GLU (test code = 7416332932) 93 mg/dL 70-110 Lab Interpretation (test code = Normal 38307-6) [facility] GLUCOSE (AUTOMATED)2020-04-08 12:46:00 Test Item Value Reference Range Interpretation Comments POCT GLU (test code = 1387248824) 109 mg/dL 70-110 Lab Interpretation (test code = Normal 43431-7) [facility] WITH [id number] 10:21:00 Test Item Value Reference Range Interpretation [...] RDW-SD (test code = 48.4 fL 38.5-51.6 21073-4) RDW-CV (test code = 15.0 % 12.1-15.4 788-0) PLT (test code = See_Comment L [Automated 777-3) message] The system which generated this result transmitted reference range : 150 - 328 10*3/?L. The reference range was not used to interpret this result as normal/abnormal . MPV (test code = 11.4 fL 9.8-13 71008-4) NRBC/100 WBC (test See_Comment [Automat ed code = 6411130423) message] The system which generated this result transmitted reference range : 0.0 - 10.0 /100 WBCs. The reference range was not used to interpret this result as normal/abnormal . NRBC x10^3 (test code <0.01 See_Comment [Auto mated = 9649667325) message] The system which generated this result transmitted reference range : 10*3/?L. The reference range was not used to interpret this result as normal/abnormal . GRAN MAT (NEUT) % 84.9 % (test code = 770-8) IMM GRAN % (test code 0.80 % = 6061116621) LYMPH % (test code = 7.9 % 736-9) MONO % (test code = 5.3 % 5905-5) EOS % (test code = 0.3 % 713-8) BASO % (test code = 0.8 % 706-2) GRAN MAT x10^3(ANC) 3.34 10*3/uL 1.99-6.95 (test code = 0522214599) IMM GRAN x10^3 (test 0.03 10*3/uL 0-0.06 code = 5050216701) LYMPH x10^3 (test 0.31 10*3/uL 1.09-3.23 L code = 731-0) MONO x10^3 (test code 0.21 10*3/uL 0.36-1.02 L = 742-7) EOS x10^3 (test code <0.03 0.06-0.53 L = 711-2) BASO x10^3 (test code 0.03 10*3/uL 0.01-0.09 = 704-7) GOLDEN CELLS (test code 2+ See_Comment A [Auto mated = 3090-9) message] The system which generated this result transmitted reference range : (none). The reference range was not used to interpret this result as normal/abnormal . BANDS (test code = MARKED INCREASED A 4362085004) DOHLE BODIES (test Present A code = 7792-5) TOXIC CHANGES (test Present A code = 803-7) Lab Interpretation Abnormal (test code = 60397-3) [facility] METABOLIC PANEL (NA, K, CL, CO2, GLUCOSE, BUN, CREATININE, CA)2020-04-08 10:02:00 Test Item Value Reference Range Interpretation Comments NA (test code = 138 mmol/L 135-145 9574394144) K (test code = 4.1 mmol/L 3.5-5 0276295320) CL (test code = 109 mmol/L 98-108 H 8645211372) CO2 TOTAL (test code = 25 mmol/L 23-31 0448548907) AGAP (test code = 2-16 4243258407) BUN (test code = 26 mg/dL 7-23 H 6435902087) GLUCOSE (test code = 103 mg/dL 70-110 6803415539) CREATININE (test code = 0.90 mg/dL 0.6-1.25 1512661259) CALCIUM (test code = 8.4 mg/dL 8.6-10.6 L 5797066007) eGFR Calculation mL/min/1.73m2 (Non-) (test code = 7529384494) eGFR Calculation mL/min/1.73m2 () (test code = 5312207395) GILBERTO (test code = GILBERTO) Association of [...] tests). Lab Interpretation Abnormal (test code = 67277-4) [facility]16 10:02:00 Test Item Value Reference Range Interpretation Comments MAGNESIUM (test code = 0064947156) 2.6 mg/dL 1.7-2.4 H Lab Interpretation (test code = Abnormal 81938-7) [facility] + LACTIC [id number] 09:43:00 Test Item Value Reference Range Interpretation Comments PH (test code = 7.32-7.42 4111236971) PCO2 PANKAJ (test code = See_Comment [Auto mated 1242397064) message] The sy stem which generated this result transmitted reference range : 41 - 51 mmHg. The reference range was not used to interpret this result as normal/abnormal . PO2 PANKAJ (test code = See_Comment [Autom ated 6887942969) message] The sy stem which generated this result transmitted reference range : 25 - 40 mmHg. The reference range was not used to interpret this result as normal/abnormal . HCO3 PANKAJ (test code = See_Comment [Auto mated 7001638867) message] The sy stem which generated this result transmitted reference range : 24 - 28 mEq/L. The reference range was not used to interpret this result as normal/abnormal . AC VBE(BEAKER) (test mEq/L code = 3686214146) THB PANKAJ (test code = 11.4 g/dL 13.5-18 L 2810821425) %O2HB PANKAJ (test code = 64.9 % 52-63 H 8013902328) %COHB PANKAJ (test code = 1.0 % 0-1.5 1056044821) %METHB PANKAJ (test code = 0.3 % 0.4-1.5 L 5664716975) VOL%O2 PANKAJ (test code = 10.4 % 6-12 7161680232) NA (test code = 138 mmol/L 135-145 2377159299) K+ (test code = 4.1 mmol/L 3.5-5 8889064496) AC CA IONZ (test code = 4.90 mg/dL 4.5-5.3 5573063715) GLUCOSE (test code = 98 mg/dL 70-110 3742753369) LACTIC ACID (test code 1.90 mmol/L = 2124678591) Lab Interpretation Abnormal (test code = 02175-4) [facility]2020-04-08 04:25:00 Test Item Value Reference Range Interpretation Comments POCT GLU (test code = 0417875886) 106 mg/dL 70-110 Lab Interpretation (test code = Normal 11771-5) [facility] [id number] 22:55:21Impression: Stable findings with no new changes.Exam: [...] unchanged.IMPRESSIONIm pression: Stable findings with no new changes.[facility] MRSA / MSSA Screen by PCR, [id number] 19:28:00 Test Item Value Reference Range Interpretation Comments MSSA Screen by Estefanía VIEIRA (test code Negative Negative = 67561-3) MRSA/MSSA Positive? (test code = No No 2263599940) Lab Interpretation (test code = Normal 90175-1) [facility]2020-04-07 17:01:00 Test Item Value Reference Range Interpretation Comments POCT GLU (test code = 3524883118) 95 mg/dL 70-110 Lab Interpretation (test code = Normal 60603-6) [facility] + LACTIC [id number] 14:15:00 Test Item Value Reference Range Interpretation Comments PH (test code = 2) 7.35-7.45 L PCO2 (test code = See_Comment [Automate d 0237982005) message] The sy stem which generated this result transmitted reference range : 35 - 45 mmHg. The reference range was not used to interpret this result as normal/abnormal . PO2 (test code = See_Comment H [Automated 8801468592) message] The sy stem which generated this result transmitted reference range : 80 - 100 mmHg. The reference range was not used to interpret this result as normal/abnormal . HCO3 (test code = See_Comment L [Automate d 4176547780) message] The sy stem which generated this result transmitted reference range : 22 - 26 mEq/L. The reference range was not used to interpret this result as normal/abnormal . BE (test code = See_Comment L [Automated 3894746245) message] The sy stem which generated this result transmitted reference range : -3.0 - 3.0 mEq/ L. The reference r meredith was not used to interpret this result as normal/abnormal . THB (test code = 9.6 g/dL 13.5-18 L 3876277240) %O2HB (test code = 98.6 % 94-99 3070565194) %COHB ART (test code = 0.3 % 0-1.5 2443869812) %METHB ART (test code = 0.0 % 0.4-1.5 L 5775100353) VOL%O2 ART (test code = NA 1162984882) NA (test code = 131 mmol/L 135-145 L 4907083323) K+ (test code = 4.3 mmol/L 3.5-5 9783782810) AC CA IONZ (test code = 4.60 mg/dL 4.5-5.3 5565606415) GLUCOSE (test code = 147 mg/dL 70-110 H 4932382269) LACTIC ACID (test code 3.12 mmol/L 0.5-2.2 H = 8125981228) Lab Interpretation Abnormal (test code = 88237-0) [facility]Lamd[facility] Whole [id number] 14:00:00 Test Item Value Reference Range Interpretation Comments LACTIC ACID (test code = 3.12 mmol/L 9558958843) [facility] GLUCOSE (AUTOMATED)2020-04-07 12:53:00 Test Item Value Reference Range Interpretation Comments POCT GLU (test code = 2485331727) 140 mg/dL 70-110 H Lab Interpretation (test code = Abnormal 53152-9) [facility] + LACTIC [id number] 12:01:00 Test Item Value Reference Range Interpretation Comments PH (test code = 2) 7.35-7.45 L PCO2 (test code = See_Comment L [Automate d 3695513908) message] The sy stem which generated this result transmitted reference range : 35 - 45 mmHg. The reference range was not used to interpret this result as normal/abnormal . PO2 (test code = See_Comment H [Automated 4638410200) message] The sy stem which generated this result transmitted reference range : 80 - 100 mmHg. The reference range was not used to interpret this result as normal/abnormal . HCO3 (test code = See_Comment L [Automate d 0121074781) message] The sy stem which generated this result transmitted reference range : 22 - 26 mEq/L. The reference range was not used to interpret this result as normal/abnormal . BE (test code = See_Comment L [Automated 0776098634) message] The sy stem which generated this result transmitted reference range : -3.0 - 3.0 mEq/ L. The reference r meredith was not used to interpret this result as normal/abnormal . THB (test code = 10.8 g/dL 13.5-18 L 8405596283) %O2HB (test code = 98.8 % 94-99 9147087173) %COHB ART (test code = 0.3 % 0-1.5 4492577605) %METHB ART (test code = 0.0 % 0.4-1.5 L 1492523377) VOL%O2 ART (test code = 15.4 % 15-23 3308079386) NA (test code = 126 mmol/L 135-145 L 3554014940) K+ (test code = 4.3 mmol/L 3.5-5 4262846019) AC CA IONZ (test code = 4.70 mg/dL 4.5-5.3 1582556710) GLUCOSE (test code = 144 mg/dL 70-110 H 1175540927) LACTIC ACID (test code 2.79 mmol/L = 0309242065) Lab Interpretation Abnormal (test code = 14316-0) [facility]UR[facility] [id number] 11:44:00 Test Item Value Reference Range Interpretation Comments URINE CULTURE (test No aerobic growth (< code = 630-4) 1000 CFU/mL) [facility] WITH [id number] 09:53:00 Test Item Value Reference Range Interpretation [...] RDW-SD (test code = 48.8 fL 38.5-51.6 42096-6) RDW-CV (test code = 15.0 % 12.1-15.4 788-0) PLT (test code = See_Comment L [Automated 777-3) message] The sy stem which generated this result transmitted reference range : 150 - 328 10*3/ ?L. The reference r meredith was not used to interpret this result as normal/abnormal . MPV (test code = 11.8 fL 9.8-13 55105-1) IPF % (test code = 6.5 % 1.2-10.7 Platelet count 2974720550) measured by fluorescence method. NRBC/100 WBC (test See_Comment [Automat ed code = 3404664265) message] The system which generated this result transmitted reference range : 0.0 - 10.0 /100 WBCs. The refer ence range was not u sed to interpret th is result as normal/abnormal . NRBC x10^3 (test code <0.01 See_Comment [Auto mated = 5539545679) message] The s ystem which generated this result transmitted reference range : 10*3/?L. The reference range was not used to interpret this result as normal/abnormal . SEG % (test code = 20 % 33-76 L 75760-7) BAND % (test code = 45 % 0-1 H 92904-5) META % (test code = 9 % See_Comment H [Automa dain 36876-4) message] The sy stem which generated this result transmitted reference range : <=0. The refere nce range was not u sed to interpret th is result as normal/abnormal . MYELO % (test code = 1 % See_Comment H [Autom ated 61880-2) message] The sy stem which generated this result transmitted reference range : <=0. The refere nce range was not u sed to interpret th is result as normal/abnormal . LYMPH % (test code = 20 % 14-54 66833-1) MONO % (test code = 5 % 0-4 H 98497-6) ANC (test code = 1.40 10*3/uL 1.99-6.95 L 4766409608) GOLDEN CELLS (test code 2+ See_Comment A [...] 803-7) Lab Interpretation Abnormal (test code = 53921-8) [facility] METABOLIC PANEL (NA, K, CL, CO2, GLUCOSE, BUN, CREATININE, CA)2020-04-07 09:21:00 Test Item Value Reference Range Interpretation Comments NA (test code = 137 mmol/L 135-145 3135483716) K (test code = 4.6 mmol/L 3.5-5 3327393930) CL (test code = 110 mmol/L 98-108 H 3530772015) CO2 TOTAL (test code = 17 mmol/L 23-31 L 9707803761) AGAP (test code = 2-16 6737629977) BUN (test code = 24 mg/dL 7-23 H 1277164007) GLUCOSE (test code = 132 mg/dL 70-110 H 1348128854) CREATININE (test code = 1.23 mg/dL 0.6-1.25 1994851408) CALCIUM (test code = 8.0 mg/dL 8.6-10.6 L 8874787617) eGFR Calculation mL/min/1.73m2 (Non-) (test code = 9728312835) eGFR Calculation mL/min/1.73m2 () (test code = 1112518217) GILBERTO (test code = GILBERTO) Association of [...] tests). Lab Interpretation Abnormal (test code = 52209-5) [facility] 09:19:00 Test Item Value Reference Range Interpretation Comments MAGNESIUM (test code = 6195223893) 2.9 mg/dL 1.7-2.4 H Lab Interpretation (test code = Abnormal 31265-1) [facility]2020-04-07 04:37:00 Test Item Value Reference Range Interpretation Comments POCT GLU (test code = 6511202071) 111 mg/dL 70-110 H Lab Interpretation (test code = Abnormal 15220-5) [facility] HospitalHCV [id number] 02:35:00 Test Item Value Reference Range Interpretation Comments HCV Ab (test code = 77777-8) Negative HCV Semi-Quantitative (test code = 94334-9) [facility] + LACTIC [id number] 02:15:00 Test Item Value Reference Range Interpretation Comments PH (test code = 7.32-7.42 L 3985613185) PCO2 PANKAJ (test code = See_Comment L [Auto mated 3735530774) message] The sy stem which generated this result transmitted reference range : 41 - 51 mmHg. The reference range was not used to interpret this result as normal/abnormal . PO2 PNAKAJ (test code = See_Comment HH [Autom ated 4174866811) message] The sy stem which generated this result transmitted reference range : 25 - 40 mmHg. The reference range was not used to interpret this result as normal/abnormal . HCO3 PANKAJ (test code = See_Comment L [Auto mated 8258683716) message] The sy stem which generated this result transmitted reference range : 24 - 28 mEq/L. The reference range was not used to interpret this result as normal/abnormal . AC VBE(BEAKER) (test mEq/L code = 0959373220) THB PANKAJ (test code = 11.2 g/dL 13.5-18 L 8811344984) %O2HB PANKAJ (test code = 98.7 % 52-63 H 4767187580) %COHB PANKAJ (test code = 0.3 % 0-1.5 9835164042) %METHB PANKAJ (test code = 0.1 % 0.4-1.5 L 4779490043) VOL%O2 PANKAJ (test code = 15.9 % 6-12 H 3721348511) NA (test code = 136 mmol/L 135-145 9857906974) K+ (test code = 4.2 mmol/L 3.5-5 3672821272) AC CA IONZ (test code = 4.60 mg/dL 4.5-5.3 1546965228) GLUCOSE (test code = 108 mg/dL 70-110 9131019424) LACTIC ACID (test code 2.37 mmol/L = 2402052672) Lab Interpretation Abnormal (test code = 50557-4) [facility]+COOX+NA+K+GLU+CA2+2020-04-07 01:54:00 Test Item Value Reference Range Interpretation Comments PH (test code = 2) 7.35-7.45 LL PCO2 (test code = See_Comment [Automate d message] 5770116369) The system [employer] generated this result transmit dain reference range : 35 - 45 mmHg. The reference range was not used to interpret this result as normal/abnormal . PO2 (test code = See_Comment H [Automated message] 0835849193) The system [employer] generated this result transmit dain reference range : 80 - 100 mmHg. The reference range was not used to interpret this result as normal/abnormal . HCO3 (test code = See_Comment L [Automate d message] 1872433162) The system [employer] generated this result transmit dain reference range : 22 - 26 mEq/L. The reference range was not used to interpret this result as normal/abnormal . BE (test code = See_Comment L [Automated message] 5972359331) The system [employer] generated this result transmit dain reference range : -3.0 - 3.0 mEq/ L. The reference r meredith was not used to interpret this result as normal/abnormal . THB (test code = 10.6 g/dL 13.5-18 L 7834074193) %O2HB (test code = 99.0 % 94-99 0112585306) %COHB ART (test code = 0.3 % 0-1.5 0174162985) %METHB ART (test code = 0.3 % 0.4-1.5 L 9232564632) VOL%O2 ART (test code = 15.3 % 15-23 0932264717) NA (test code = 136 mmol/L 135-145 5620004258) K+ (test code = 3.1 mmol/L 3.5-5 L 9553771956) AC CA IONZ (test code = 4.30 mg/dL 4.5-5.3 L 9973146921) GLUCOSE (test code = 113 mg/dL 70-110 H 0329593045) Lab Interpretation Abnormal (test code = 98128-7) [facility]+COOX+NA+K+GLU+CA2+2020-04-07 01:53:00 Test Item Value Reference Range Interpretation Comments PH (test code = 2) 7.35-7.45 PCO2 (test code = See_Comment L [Automate d message] 0475725251) The system [employer] generated this result transmit dain reference range : 35 - 45 mmHg. The reference range was not used to interpret this result as normal/abnormal . PO2 (test code = See_Comment H [Automated message] 1383578105) The system [employer] generated this result transmit dain reference range : 80 - 100 mmHg. The reference range was not used to interpret this result as normal/abnormal . HCO3 (test code = See_Comment L [Automate d message] 9486852152) The system [employer] generated this result transmit dain reference range : 22 - 26 mEq/L. The reference range was not used to interpret this result as normal/abnormal . BE (test code = See_Comment L [Automated message] 5086902836) The system [employer] generated this result transmit dain reference range : -3.0 - 3.0 mEq/ L. The reference r meredith was not used to interpret this result as normal/abnormal . THB (test code = 13.1 g/dL 13.5-18 L 7815209772) %O2HB (test code = 98.9 % 94-99 1627947945) %COHB ART (test code = 0.1 % 0-1.5 9585559053) %METHB ART (test code = 0.6 % 0.4-1.5 0032476961) VOL%O2 ART (test code = 19.3 % 15-23 0452704066) NA (test code = 132 mmol/L 135-145 L 9426825731) K+ (test code = 4.2 mmol/L 3.5-5 1422815633) AC CA IONZ (test code = 4.60 mg/dL 4.5-5.3 5349351625) GLUCOSE (test code = 99 mg/dL 70-110 0057077631) Lab Interpretation Abnormal (test code = 41888-4) [facility] AG-AB WITH [id number] 01:29:00 Test Item Value Reference Range Interpretation Comments HIV Negative Negative Semi-quantitative (test code = 49144-3) GILBERTO (test code = Non-reactive for HIV-1 GILBERTO) antigen and HIV-1/HIV-2 antibodies. ?No laboratory evidence of HIV infection. ?Repeat in 2-4 weeks if acute HIV infection is suspected. [facility] GLUCOSE (AUTOMATED)2020-04-07 00:40:00 Test Item Value Reference Range Interpretation Comments POCT GLU (test code = 1098427794) 100 mg/dL 70-110 Lab Interpretation (test code = Normal 60735-1) [facility] GLUCOSE (AUTOMATED)2020-04-07 00:06:00 Test Item Value Reference Range Interpretation Comments POCT GLU (test code = 3157456126) 116 mg/dL 70-110 H Lab Interpretation (test code = Abnormal 55197-8) [facility] GLUCOSE (AUTOMATED)2020-04-06 22:48:00 Test Item Value Reference Range Interpretation Comments POCT GLU (test code = 4519217272) 94 mg/dL 70-110 Lab Interpretation (test code = Normal 83571-8) [facility] 1 [id number] 21:06:45 1. Interval placement of right internal [...] reviewed this study and agree with the abovereport.[facility] WITH [id number] 20:15:00 Test Item Value Reference Range Interpretation [...] RDW-SD (test code = 49.2 fL 38.5-51.6 93627-3) RDW-CV (test code = 14.7 % 12.1-15.4 788-0) PLT (test code = See_Comment L [Automated 777-3) message] The sy stem which generated this result transmitted reference range : 150 - 328 10*3/ ?L. The reference r meredith was not used to interpret this result as normal/abnormal . MPV (test code = 12.1 fL 9.8-13 69296-4) NRBC/100 WBC (test See_Comment [Automat ed code = 1234404986) message] The system which generated this result transmitted reference range : 0.0 - 10.0 /100 WBCs. The refer ence range was not u sed to interpret th is result as normal/abnormal . NRBC x10^3 (test code <0.01 See_Comment [Auto mated = 8002053195) message] The s ystem which generated this result transmitted reference range : 10*3/?L. The reference range was not used to interpret this result as normal/abnormal . SEG % (test code = 38 % 33-76 05398-7) BAND % (test code = 28 % 0-1 H 31785-0) META % (test code = 4 % See_Comment H [Automa dain 15678-1) message] The sy stem which generated this result transmitted reference range : <=0. The refere nce range was not u sed to interpret th is result as normal/abnormal . MYELO % (test code = 6 % See_Comment H [Autom ated 83162-0) message] The sy stem which generated this result transmitted reference range : <=0. The refere nce range was not u sed to interpret th is result as normal/abnormal . LYMPH % (test code = 16 % 14-54 84878-2) MONO % (test code = 8 % 0-4 H 90669-5) ANC (test code = 0.40 10*3/uL 1.99-6.95 L 0658444517) GOLDEN CELLS (test code 3+ See_Comment A [Auto mated = 3290-9) message] The sy stem which generated this result transmitted reference range : (none). The reference range was not used to interpret this result as normal/abnormal . DOHLE BODIES (test Present A code = 7792-5) Lab Interpretation Abnormal (test code = 52614-2) [facility] Test Item Value Reference Range Interpretation Comments APTT Patient (test code See_Comment H [Au tomated message] = 3173-2) The system [employer] h generated this result transmitted ref erence range: 26 - 36 Seconds. The reference range was not used to int erpret this result as normal/abnormal . Lab Interpretation (test Abnormal code = 57169-9) [facility] HospitalPROT[facility]OMBIN TIME / [id number] 19:55:00 Test Item Value Reference Range Interpretation [...] tions. Lab Interpretation (test Abnormal code = 34376-6) [facility]. METABOLIC PANEL (86280)2020-04-06 19:50:00 Test Item Value Reference Range Interpretation Comments NA (test code = 137 mmol/L 135-145 0171168656) K (test code = 3.6 mmol/L 3.5-5 5561320030) CL (test code = 109 mmol/L 98-108 H 3742869573) CO2 TOTAL (test code = 18 mmol/L 23-31 L 7238103227) AGAP (test code = 2-16 7679434948) BUN (test code = 27 mg/dL 7-23 H 6132074938) GLUCOSE (test code = 91 mg/dL 70-110 6065188554) CREATININE (test code = 1.38 mg/dL 0.6-1.25 H 9632652768) TOTAL BILI (test code = 1.0 mg/dL 0.1-1.5 8257818472) CALCIUM (test code = 8.0 mg/dL 8.6-10.6 L 9246872381) T PROTEIN (test code = 4.3 g/dL 6.3-8.2 L 4217086450) ALBUMIN (test code = 2.7 g/dL 3.5-5 L 2482394930) ALK PHOS (test code = <20 34-122 L 1379602826) ALTv (test code = 9 U/L 5-50 1742-6) AST(SGOT) (test code = 21 U/L 13-40 8238743130) eGFR Calculation mL/min/1.73m2 (Non-) (test code = 9655586265) eGFR Calculation mL/min/1.73m2 () (test code = 4185578063) GILBERTO (test code = GILBERTO) Association of [...] tests). Lab Interpretation Abnormal (test code = 85974-2) [facility] (NA, K, CL, CO2, GLUCOSE, BUN, CREATININE, CA)2020-04-06 19:50:00 Test Item Value Reference Range Interpretation Comments NA (test code = 137 mmol/L 135-145 0494337751) K (test code = 3.6 mmol/L 3.5-5 5593929348) CL (test code = 109 mmol/L 98-108 H 3382337016) CO2 TOTAL (test code = 18 mmol/L 23-31 L 9026642839) AGAP (test code = 2-16 3615529680) BUN (test code = 27 mg/dL 7-23 H 0561316604) GLUCOSE (test code = 91 mg/dL 70-110 6032804650) CREATININE (test code = 1.38 mg/dL 0.6-1.25 H 7243652914) CALCIUM (test code = 8.0 mg/dL 8.6-10.6 L 1241032980) eGFR Calculation mL/min/1.73m2 (Non-) (test code = 7754075864) eGFR Calculation mL/min/1.73m2 () (test code = 2758208014) GILBERTO (test code = GILBERTO) Association of [...] tests). Lab Interpretation Abnormal (test code = 05842-5) [facility]MAGN[facility]IUM2020-08-14 19:44:00 Test Item Value Reference Range Interpretation Comments MAGNESIUM (test code = 7884401006) 1.7 mg/dL 1.7-2.4 Lab Interpretation (test code = Normal 95477-9) [facility] HospitalAC PANEL 21 + LACTIC [id number] 19:25:00 Test Item Value Reference Range Interpretation Comments PH (test code = 7.32-7.42 L 7798986166) PCO2 PANKAJ (test code = See_Comment L [Auto mated 6011942541) message] The sy stem which generated this result transmitted reference range : 41 - 51 mmHg. The reference range was not used to interpret this result as normal/abnormal . PO2 PANKAJ (test code = See_Comment H [Autom ated 9202816452) message] The sy stem which generated this result transmitted reference range : 25 - 40 mmHg. The reference range was not used to interpret this result as normal/abnormal . HCO3 PANKAJ (test code = See_Comment L [Auto mated 4213204001) message] The sy stem which generated this result transmitted reference range : 24 - 28 mEq/L. The reference range was not used to interpret this result as normal/abnormal . AC VBE(BEAKER) (test mEq/L code = 6997412814) THB PANKAJ (test code = 10.1 g/dL 13.5-18 L 9939218562) %O2HB PANKAJ (test code = 84.0 % 52-63 H 9912376470) %COHB PANKAJ (test code = 0.6 % 0-1.5 6885351015) %METHB PANKAJ (test code = 0.3 % 0.4-1.5 L 2192793875) VOL%O2 PANKAJ (test code = 12.0 % 6-12 3695606594) NA (test code = 135 mmol/L 135-145 3376761864) K+ (test code = 3.5 mmol/L 3.5-5 7517820956) AC CA IONZ (test code = 4.50 mg/dL 4.5-5.3 0685278583) GLUCOSE (test code = 87 mg/dL 70-110 8599061315) LACTIC ACID (test code 3.34 mmol/L = 3082451904) Lab Interpretation Abnormal (test code = 36420-9) [facility] HospitalAC PAN[facility] 20 + LACTIC [id number] 19:19:00 Test Item Value Reference Range Interpretation Comments PH (test code = 2) 7.35-7.45 L PCO2 (test code = See_Comment L [Automate d 7021402176) message] The sy stem which generated this result transmitted reference range : 35 - 45 mmHg. The reference range was not used to interpret this result as normal/abnormal . PO2 (test code = See_Comment H [Automated 1150421949) message] The sy stem which generated this result transmitted reference range : 80 - 100 mmHg. The reference range was not used to interpret this result as normal/abnormal . HCO3 (test code = See_Comment L [Automate d 6449046304) message] The sy stem which generated this result transmitted reference range : 22 - 26 mEq/L. The reference range was not used to interpret this result as normal/abnormal . BE (test code = See_Comment L [Automated 2051798778) message] The sy stem which generated this result transmitted reference range : -3.0 - 3.0 mEq/ L. The reference r meredith was not used to interpret this result as normal/abnormal . THB (test code = 10.4 g/dL 13.5-18 L 6323052806) %O2HB (test code = 98.3 % 94-99 3989941456) %COHB ART (test code = 0.3 % 0-1.5 1418077753) %METHB ART (test code = 0.3 % 0.4-1.5 L 5944352582) VOL%O2 ART (test code = 14.8 % 15-23 L 1093647339) NA (test code = 135 mmol/L 135-145 6764632347) K+ (test code = 3.5 mmol/L 3.5-5 7491868771) AC CA IONZ (test code = 4.50 mg/dL 4.5-5.3 2090184025) GLUCOSE (test code = 96 mg/dL 70-110 4381473822) LACTIC ACID (test code 2.95 mmol/L = 5317982161) Lab Interpretation Abnormal (test code = 22975-7) [facility] HospitalS[facility] PATHOLOG[facility] [id number] 16:51:00 Test Item Value Reference Range Interpretation Comments Case Report (test code Surgical Pathology ? ? = [id number]) ?Case: [id number] ? Authorizing Provider: ?Bia Pedro MD ?Collected: ? 04/03/2020 1513 ?Ordering Location: ? ? [facility] OR ? Received: ?04/03/2020 1657 ? Department ? Pathologist: ? Nimisha Galloway, PHD ?Specimens: ? A) - COLON, total abdominal colectomy ? B) - COLON, donuts x2 ? Final Diagnosis (test x6veiFGbSXYar1dlTJPpbK code = 7381696316) FuZzEwMzNcZnRuYmpcdWMx UTfyoxUuXOyqv1AvZ0KvMw AwMFxhbnNpXGRlZmxhbmcx NBPnIDK7zdChQAOkVTinTA YrWXepAf3ycLOloJqwTtBr YDZwm4crgwLZvomfmWh3j3 orUHArYrT8qYHbBFirL5av xgTceIGiFSLuTBv3iG64GT HbpO7odLVbNWnkavXcKJuv xpOyilEfBda4IFCwQ1ryXU SkPOWvK1RzJJ9dFOKdIkt8 LJO1OIX7xQgqa9R7iGLjdB QxhFazNeBjDdRlQOEKa9Ty XFv1yHgeY4YsZJNiMiK8hW QgUGFyYWdyYXBoIEZvbnQ7 oUgtD9DlEMJvMyH1wCZdUP OmRCssJXRjNh5vfUv4hJrb FpwpKMJ4Dii5FE7jnu19gj b8lYkwVHLcjytyQoE2TVvi PTAiuajqZKn5DRpfABKwvA JmSMAwkAHyK8RtJTjoTL6j nsy7ScXoPB1ioiatXWddJS NlODI3BlAvLKQvc2Wcszxv YiJtkh8gec29NQL3m7WhfK cfTTP8TYE2XrAvXh4vnACq QRFrLG2kUpCwaHXdTSFndb 78tVkrXAweqbOqsB9eAyKc CJYjhQIiJFZqQC0mnQXbYQ SefM0qiftqHLHjCiEsqxnn AGXauPembwVjMh2dxRhaFI U3NGgmS1cdtL1dSsH5DPee Y4ushR1iHSx2PBpgsYX1OO DevK2lDJ9vkymsd4ulJEJ6 UEocXZBepgV7vqJiAGYjkJ TbK4EkaP68JlTvqIFtG3Iw gC0vHAndIIOhejz9TsJjEc 1zmPShnMO6WZqbJrehMAzl XHBnbmNvbnRccGduZGVjXH BsYWluXHBsYWluXGYwXGZz BeDyrSwyuGnxpH0mVyMeYh MyMFxwbGFpblxmMVxmczIw ALJrchWEQqXAD5jIGvstQT 6NXEdrZaMFXACMFZ1BHjsn OKXcWZSvDG5uYfMPV6JWIJ BjL84ZM9VGZJdOZjSKEQHT DWALWv2QM07CUTUDIW4PCm CNNBqOYYTAH34MFCRWIGDP IcSHVYTJGGTWS3xPDUovKZ EhHVFrBEOgP8LGATQUL0IR P03dDXNbqsXiKBDvDJJMEI qUJKPORVJUEBSHS1FVJI3Q GP7VIQxGCDVwZ5xMQQURKC SaC00FW65ZJsEIYiXWYEkJ FYJKJXUDTK2OTSfRUpLZUN jKWduFIZCOU6LGMMUfhYWr FVCfRWQkUH7GD6UCNEKNAY 9OXHBhciAgICAgLSBOTyBF YjzOBN0TKQMKIiKOOPGMF3 RBLI4RE9NBQ5nAGOcgDYHm FHHcXT2pCE0GXZTBObQTEF BTRVNTSUxFIFNFUlJBVEVE SGZPSE9RPJEhbMLmFEEuWP AtIFJFQUNUSVZFIExZTVBI QK7KZXXMVVFrzoCbSXCrZY MWPCBUNBOlSdEFQAIYVD5C BN4DQfuGWhAlpQTbTCDpej xwbGFpblxmMVxmczIyXGxh msoyOGPoGXigI3kkFvIvFF XupKiwYKufs1KbTLQwWGRj DGnropFuFACmj5igAXUdBr K3jWDeZNLLGlKUSnIkST8e QG5tOFPxOYBhQNfzVaQSBO xwbGFpblxmMVxmczIwXHBh cbzsRRG8a6anoKItPQPmtN FzAhPzIQZhZRUir2rhRAIu bGFuZzEwMzNcZnRuYmpcdW WzQBQhKcFrm4msb527bUIe e0czGBKzOkE3nHFzFOAkzJ evigw6pDxeFdQyENNdx9hp cyBcZmNoYXJzZXQwIEFyaW HsL770XXOvEGetu7fhq7Ee TQJieIUmf2A2DLTGGBonIq NrM899h7fqw7dgrlDtlFT2 YRXpWCU6XLsfabAdprH6NV fxgIZuBxC3ROcvyjSuAHmq zlRzcwQkOkm8ZXOhV852RO G7oBgpg6ceFFX0HHDfUSLh VrvrLa5lbBWpH764VAXeRT BIGAKxoAj5MZAqntOaauPy zVWKv130G606i5asNIXwcc EqkEoZrmcsh8zdC882XJPi cGVydzEyMjQwXHBhcGVyaD E9MWIwFW3arocaMFdqVHcw PEZmlsD5LEMpoGPyL3MkWT EqCI9igkqpXTQ8MImvBWMl ISJ4QpOxMLDkg6Tqkwd9Yj Fdjm3gfb81SRR6p0EiuEzo ILO3NEK6RnHhDe1heTRkVD UeUT6mFgVefDUuEULgfq84 gHeyPCanzoZsfE1dMwIxSF IzkEBeZRQeGO4kvXHxFMIz nI3wtshnMBAdRoJptwlsZL WqnRdabwJjUp7qqBxdRVV1 QCwbS6aigA6kSdU7WMiyX3 yolF7rTLi1XGqbsEC2UAAn vO7gEQ5efvhor2snYUseUA xqJLFaabS7cxZ1FWYktQHv D5IluN3pOOYvUM6horaql2 orGQF3LCihHXXnYOF2KgKs PQSzt9Xlrux3FpUam8FrbP MsQYumZ81xb505QRWdbvOk D0xkxBJkhflgeYUaxmtvSJ yxrdK6KBBbCDKkKHfyWZGo XGZzMjBcbGFuZzEwMzNcaG ljaFxmMVxkYmNoXGYxXGxv F2tqLdKfY2LmILDjVjOnhQ PdUOzfxRP0KCXlZZYtg21v xJc6GZHkylmyw2AzTRLjbC JliHVcxD3rxgKxo7asJQJw XEVdOZVuN3AmGVE3oAGfZV DccEVjrKV7ZB0njuNvCF2d ZGUgYnkgcmVzaWRlbnRzLC ZjWQmma5wkTN3fOXMvcAzm xK0ofSJ6GKQgm9yxvLMcoK Nzy8bes8WyqkRqVVjyDJCn CLeeWXZlDSOfER1wOUNlkK UwakPcr2X3PnwrqLXmfaev QzwaclN0TPmfpiutJCFeTX nfE2alUvEyKNGweCkkDxwg t9AgGFBkHGBpRvzeaPJhcZ 0= Clinical Information Large bowel (test code = obstruction [K56.609] 6224509740) Gross Description (test q0rpzFXkMVKexKYtLfOjNC code = 1354005525) KwOGHcn7dgXQPpmMFdTvXc MzNcZnRuYmpcdWMxXGRlZm Ysn9qri420yYJsw9srTVOa FqG1sMTiLUMjjAEpF232AM ZpNHcvg0uci5YmVMKajVSg v5T6OMPQvcnjeXf6yOloA3 6ro9F9DkfpN3sgTESuLBpp XMUxGAsvdPXjJXU3EZBzOS B7YExkyrHsuaW0UYumbMIw IrN0GUd0u7nfhKfaXPOtXR H3u5awOVfompFuBC6jnw0y qBu6p6jhgzJwNNHzQOYpfA KJFUAuW9VyoCfoEh0zuKo8 cIrsVdhnBVC1Mmq3DZ1nvw 51cnz0vDdjJEBbduggUcI7 IHutOEBnnvihBUd2QMmjKN ImmRQbOQXgiJPuM5PkLYzf XG5qzox4ZuKiTJ6gmubkMY qiMEFfDMH5WySmSWQjl9Ha btmrWyWmpx5dlh32RSJ9f0 QbnLjoVVI7PXI6FlRiBp9p sSHxOQMsCR1kRlRifOUhEP Xjlh64dBkpEIefzbIvhE2l HkYkXLLvuKLsOXHhNK1twT SjBYRusW7hvgxzMUDyMaMh nagmOCRdnEnjqyPdRk3upZ nvEZJ5TYkjC5ifxK3eRxY2 CIipQ2xpbN4lESx9LIcggH L1VYBzlE1lOF6roeelq8jy MUB1MVfaJUXdkaZ3naSdHU CsoFEzT1FbeA37TsEkxZFh F7IwsI4mOBssEVAzqnx4Jx XfGx8uxNWtnRW0ALiqAxaq YWdlXHBnbmNvbnRccGduZG VjXHBsYWluXHBsYWluXGYw DUVyPbEjoRzsbPtcqH2fCo BcZnMyMFxwbGFpblxmMVxm czIwIFNwZWNpbWVuIEEgaX KvvbVzEGk1QWPwDtCdp1qh aHXuDYynYRCyv8n8bYX2hW TiqQJ5rYKxmGuxPO5vcOGi HHBBIW74bHFwahBwS83np2 3fNITpfZWvCGDdHJ8ryL0s zPZxy2ltG0YcxNbsDPZqyk NuT44fx3cafMUiq8PlMAS1 v4GrxIWbo3qbE3IjiScjn2 ZbU5qxQG9nCEkcTjAkK45m vM8gaRYeH2QwUEoxWU1zLP VoFbMwM66ejG6iNWzjoUS3 HECeNTwodLrhFWU4JOEmGX VegSBwqSbhKPsjtYdurR0f FLJoGRBhiNKwdjJmRN2vsP piyBM2MaCzH66vPZhkoQY4 PJEbZNN8vHUvZI3xITokh5 NzbHkgaWRlbnRpZmlhYmxl OQWaeGFaMSz6NnKCvOVix6 Uxw5YdMSqlYDMdqz0hYIGd NL6gDDDop421dLL5qVGuZI QgmOY6OCNrhdAmn7Wvqf4k VGhlIHNwZWNpbWVuIGlzIG 5oLQ9nGMYedC8zMeXsiAFg OZ02aQ1xf2GsqTAhiRVpVm 9yZGVyLiBUaGVyZSBpcyBh CHSzvcD2iPUmchTruPenfE Y7DYvlBIfiYAedPFZfC3Tc WSWdq31uWCRnfeA1gA19oo GmuGWhJQV6EKEdPMDoeUUy XpFzU00xTgQdaML6xJKwYM zeiZLvAX2unfgkhpQkajKh UBPgJ42vHtDjtIR5eFKmnO CfcKrqMHfxdKPnV0xzKaVU yr95zM5ewYA1bmT4xBDfhU VeysnddYUjqQPgTN61dV7j HTTtp9RcV4gpTKswj4Unqz E5xXBzRr52CKbabDJiUCtj dGVuZGVkIGZvciBhIGxlbm y1eCAdBxCzRE9eXDOrSwAC eOJxaQ3jmXnyFFMmq6Utpp HgTJTlXOepe38mhSrzNJ22 N55uSHMdinLdw3KejVo4JC LmPQS0UK6uAQljP9HgedVy YXIsIHdpdGggYXJlYXMgb2 RrN34kEjjwu3UvfbRzSTSw PVZdZC2ePMEkmrLqZ2vxBp Udbd0hSMMkXI3aUm84YYLw OC3oSEzxXHponMmda0KdhR yfRTBva2HljsEzGKCjCGbv u09gfPNksUmrJ3evldIxXM DzXUTsxAGeZVA2GHqxLX7o dN6dANSbr44kSH6xNAVgXz HokNpqUGTeMWFwZS1djV6k nexorZNfx8YvXX2kLRPqYO Gdn9qgtiIdcjW6TO9mxXbr nwDwukRqmGmnCSXbk9JwsW LkFKBvhV2nASZeUGNxqhGx jj9by6v1QXSkJKGsDU5gHB PqsLsaPZvoEP8kSDKguDMo lF3dqBhcocV3pMGaVKVmgp BhbiBhZGRpdGlvbmFsIHdl tRxevOHzwCIpIAS4pquuO9 KwUTWbZMPnCYUpa4NiyTI3 phC2uCBipKqqd0ZqK3FvHN g5weZ2qH4zHNQgBEXiLZad KHNpyF3bx7wjhTIfkBogt0 IgZ9NySZBobPYaUIixgBct YM6vBUH5WBCbXTBvl3NvcT LtbGJnJpGtisQri4OtgzLt SWGyJTCocDXdyoWiCJ9hpT qzWxptME31BEGpZZslITIr ML8mjPMtIET4fRNoDEOlf2 DdlXVcXPFvDHEaz6ZavCaw IGxpbmUgYXQgdGhlIGJsaW 0uLOKwXCtkh6Pijp15ztKf WPAqlWNefXSqA6ckWFRyMN dkb5CxJVChp5B6JD1iQLxe IHJlbWFpbmluZyBtdWNvc2 Rby7VktLbbLPsaYHAyJWsi JKLxQsN6r8AobFLxyYEpjS BhbmQgdGhlIHZpYWJpbGl0 aGGrHkM0hKLwjtApVJV5kX 0kUW8pcyimjhGnFA0cw9Ng ZoRkO5Noy3FeoEQkCQGgbk 1pbmVkLiBUaGUgcGVyaWNv nS7seQTjXNIbpN9tYJQ9hS SeoFGupRCzeRUjxMC6AQUe Oy5gSNXeoV9za1nfoFBjvE ojhWgqfj0aFOFiKMApaygl wsizXoWkvGMyBwMdTR70UX BkKKkqRUxkGKT6MQO9NMLn mEXcz2rpbyjyBBDvuXAgk8 LvdIN2pSIqTELnX8Mvl81o CXVcBEOohPEanPQ0DYVolW 4gQTEtQTEwLlxwYXJccGFy ODIlK5Ufb24tZ53cEZgegN UpLPDqHcNQfc18dD2kiOLz JJLiB4Mfw95dyICtP8uqCQ BlbiBmYWNlLCByZXByZXNl eyFhrHb9NCvlCSUbYRV9QK Evd5BejSEyJFUjK6Jvz77u gGYbV1lcLDDrsrLfFXEiTC IpVKAaLOUyetGahFd2XLii TGYhTBB2UYxaJN6rPHOesD SinJ4dhPjgbsU1eYEcFWZ4 unulH4PgMELhYQJpSTCiqT Cvo2SboTI8dQUyQIVrvgSD YSqeRqDidfOaAG79ZQGory Vlc9ImyZefffIqj0JzlJZj n2LsXRFxNZW7VXiaDPAza8 hpbWFsIHRvIHRoZSBkaXN0 WQ0cURSuXFHwPPojOJDxRX RcVZK1RRElbHYvc8FaiUP5 lGBqHIHcU9Vqt26oCM4zFH 90I34iEPYgmhLar4BdsPTo qu8vRGAxBJUpbME0JA6bAF PnJNAvDIxiPEOeWQc3LHHe ZXTfk0IrMBF7diulG0EoRS NjYXIgZGlzdGFsIHRvIGRp o0OikiTwXENndbRqYDVeAU BfAEWfjeLodUx7RRgrZNQt ZFq3UZXqjRYlm2MkxSW8eS CmBVSiK5Mwp04ePU2kVE49 Y60iSPNvouInc7NqxGQjoU I0JXbrfW8mjXnrYRTet4Ri bmRlZCBhcmVhXHBhciBBOT yeAO4ft4msoWPbwXkzb2Jb R7OxTYDkjBYkPNQhPBByQK FmxbZmfWd1NVdlILSaIUVo VdNPfw3nwxDdHCJ8fK2tYY 9mIGludGVzdGluZSBhdHRh G9ieDSU6roZvh5OtvZZkSR YaxACzD9BlDBoqpiQcqySh UJUqvDGns7QzvDU9tMEcFG LfamIAHJK7KHGjmW9gb2gq zQSiiMxqyKyyiw7tCRVnZU tmn9gzAKrzTRLqvJXnABIg rzDkaAoqqK8vOgYgSpJoEN xwbGFpblxmMVxmczIwIFNw ZWNpbWVuIEIgaXMgcmVjZW s3XZJpRoDdp3goaARiYZxf PIY1fNXxRWQsJIEtCDXhED 65J1LzqtGfWWlnGWukmsIu AcCeKDNyy9atcgzlLJ5hjJ RfBKkwMDqdRvwdXP6sUKZa iyOer1AmZW5uVFYfWN9nh4 VvlH2mhU8qRREaqaW2icSy KR70KUatRN02DNttRV90WD NtIGFuZCAyLjUgeCAxLjkg mHOpQuvbZ05rUtLUe8PqHR ZcbvF2gsAugcBvCwmeTAC3 QCHgNZMhRPMlnQQzjL1nvu UkpgIogGBkbOU6UNFpQT83 tNUqdPupET0sXuGoYVFiir PJKQ9YWkbwtNXnY7LdRTKo gaK5HAsiSPIyTZUnTHHcRE BzbWFsbGVyIGRvdWdobnV0 IGluIEIzLiBccGFyXHBhci PMKOB2VSIyhhXkjEonVBJI AMPvMQIeQ7T9YVXumWnrPW XrVPJ5xmTxJXIcW2AzZQGE LLYXP4TkJUShKAbiPFDhXX ZzMTZcbGFuZzEwMzNcaGlj aFxmMVxkYmNoXGYxXGxvY2 kbWoQwP0QqGYMzHWQxB52a sCmluB6rEuLnJmEcBXmpZY JubIregRuxfU4nHjXhFzHk MFxwbGFpblxmMVxmczIwXH Bhcn0= Embedded Images (test code = 9831945315) [facility]Int[facility] 16:04:Ana Ahn MD ? ? 04/06/2020 11:06 AMIntubationUrgency: emergent Difficult airway General Information and Staff Patient location during procedure: ORAnesthesiologist: Cynthia Herring, CARMENesident/FLORAL MERCHANDISER: Dana Sampson DOPerformed: anesthesiologist and resident/FLORAL MERCHANDISER Indications and Patient ConditionIndications for airway management: [...] from glidescope to advance tube into airway. [facility]Int[facility]2020-08-14 16:04:Ana Ahn MD ? ? 04/08/2020 ?5:11 AMIntubationUrgency: emergent Difficult airway General Information and Staff Patient location during procedure: ORAnesthesiologist: Cynthia Herring, Arianat/FLORAL MERCHANDISER: Dana Sampson DOPerformed: anesthesiologist and resident/FLORAL MERCHANDISER Indications and Patient ConditionIndications for airway management: [...] glidescope to advance tube into airway. Additional IicyljhzT7k on VL by CA1, multiple attempts by CA1 with ETT with stylet and bougie, unable to pass ETT through glottis. BVM between attempts. Glidescope stylet with ETT used by faculty under VL, attempt x 1 by faculty, g1v, atraumatic.[facility] HospitalXR [id number] 15:42:20 Large volume pneumoperitoneum. Continued gaseous distention and dilatation of the stomach and smallbowelfollowing total colectomy with ileoanal anastomosis may representpostoperative ileus. Findings regarding pneumoperitoneum were already communicated to [facility]. Preliminary Report Dictated by Resident: Bart De [...] small bowel and issimilar to prior radiographs. [place] project over the midline in the lowerabdomen. [facility], Radiant Results Inft User - 04/06/2020 [...] small bowel and issimilar to prior radiographs. [place] project over the midline in the lowerabdomen.IMPRESSIONLarge volume pneumoperitoneum.Continued gaseous distention and dilatation of the stomach and small bowelfollowing total colectomy with ileoanal anastomosis may representpostoperative ileus.Findings regarding pneumoperitoneum were already communicated to [facility].Preliminary Report Dictated by Resident: Bart Klein reviewed this study and agree.Weston Damon MD., have reviewed this study andagree with theabove report. [facility] HospitalType and Screen - ONCE [id number] 15:18:48 Test Item Value Reference Range Interpretation Comments ABO & RH (test code O POSITIVE Performe d at [facility] = 20) Laboratory Serv [facility] [address] [facility] s [id number] Free: [phone] A No. [id number] IAT (test code = Negative Performed a t [facility] 1185) Laboratory Serv [facility] [address] [facility] s [id number] Free: [phone] A No. [id number] [facility]XR CHEST 1 [id number] 15:09:51 1. ?Interval development of a large [...] 8:14 AM HISTORY: 50 years-old Male with [place]'s syndrome, complicated GI surgicalhistory, colonic ileus/inertia, evaluate for new hypotension COMPARISON: 03/30/2020, and CT abdomen and pelvis with contrast from 03/30/2020 TECHNIQUE: AP view of the chest. FINDINGS: Lines/tubes: Enteric tube c ourses over the midline and inferiorly beyondthe diaphragm and gawug-vq-fqdu. Left diaphragm is elevated with interval development [...] the midline and inferiorly beyondthe diaphragm and dwdqk-dp-syzo. Left diaphragm is elevated with interval development [...] have reviewed this study and agree with theabovereport.[facility] HospitalCentral [id number] 14:52:37Ana Syed MD ? ? 04/06/2020 ?9:53 [...] no complications ? [facility] [id number] 14:52:37Ana Syed MD ? ? 04/06/2020 ?9:53 [...] tolerated procedure well with no complications ? [facility] acute hospital BranchArterial [id number] 14:51:44Ana Syed MD ? ? 04/06/2020 ?9:52 AM Arterial Line Date/Time: 04/06/2020 9:21 AMPerformed by: Ana Syed MD Arterial Line Placement: ?Ultrasound-Guided: ultrasound guided ? ?Patient Location: ?OR ?Indication: continuous blood pressure monitoring and blood sampling needed ?Staff: ?Supervising Anesthesiologist: ?Cynthia Herring MD ?Resident: ?Ana Syed MDProcedant Detail: ?Catheter Size: ?20 gauge ?Catheter Length: ?1 and 3/4 inch ?Catheter Type: ?Arrow ?Seldinger Technique?: No ? ?Laterality: ?Right ?Site: ?Radial artery ?Line Secured: ?Biopatch, Tegaderm andtape ?Preparation: ?Chloroprep, drape, sterile gloves, guidewire removed intact and biopatch appliedEvents: ?Events: ?Patient tolerated procedure well with no complications and all wires accounted for _ [facility] acute hospital BranchArterial [id number] 14:51:44Ana Syed MD ? ? 04/06/2020 ?9:52 [...] complications and all wires accounted for _ [facility] WITH [id number] 13:22:00 Test Item Value Reference Range Interpretation Comments WBC (test code = See_Comment LL [Automated 1790-2) message] The system which generated [...] RDW-SD (test code = 47.8 fL 38.5-51.6 58924-4) RDW-CV (test code = 14.6 % 12.1-15.4 788-0) PLT (test code = See_Comment [Automated 777-3) message] The system which generated this result transmitted reference range : 150 - 328 10*3/?L. The reference range was not used to interpret this result as normal/abnormal . MPV (test code = 12.1 fL 9.8-13 53361-3) NRBC/100 WBC (test See_Comment [Automat ed code = 3668315901) message] The system which generated this result transmitted reference range : 0.0 - 10.0 /100 WBCs. The reference range was not used to interpret this result as normal/abnormal . NRBC x10^3 (test code <0.01 See_Comment [Auto mated = 0769909119) message] The system which generated this result transmitted reference range : 10*3/?L. The reference range was not used to interpret this result as normal/abnormal . GRAN MAT (NEUT) % 71.6 % (test code = 770-8) IMM GRAN % (test code 0.90 % = 1487652592) LYMPH % (test code = 18.3 % 736-9) MONO % (test code = 9.2 % 5905-5) EOS % (test code = 0.0 % 713-8) BASO % (test code = 0.0 % 706-2) GRAN MAT x10^3(ANC) 0.78 10*3/uL 1.99-6.95 L (test code = 2135351430) IMM GRAN x10^3 (test <0.03 0-0.06 code = 1074289192) LYMPH x10^3 (test 0.20 10*3/uL 1.09-3.23 L code = 731-0) MONO x10^3 (test code 0.10 10*3/uL 0.36-1.02 L = 742-7) EOS x10^3 (test code <0.03 0.06-0.53 L = 711-2) BASO x10^3 (test code <0.03 0.01-0.09 = 704-7) GOLDEN CELLS (test code 2+ See_Comment A [Auto mated = 6928-9) message] The system which generated this result transmitted reference range : (none). The reference range was not used to interpret this result as normal/abnormal . BANDS (test code = MARKED INCREASED A 2798431097) Lab Interpretation Abnormal (test code = 51543-7) [facility] METABOLIC PANEL (NA, K, CL, CO2, GLUCOSE, BUN, CREATININE, CA)2020-04-06 12:38:00 Test Item Value Reference Range Interpretation Comments NA (test code = 134 mmol/L 135-145 L 4415306876) K (test code = 4.5 mmol/L 3.5-5 9468023753) CL (test code = 105 mmol/L 98-108 5676621152) CO2 TOTAL (test code = 18 mmol/L 23-31 L 8415134355) AGAP (test code = 2-16 0200051628) BUN (test code = 30 mg/dL 7-23 H 0640663694) GLUCOSE (test code = 117 mg/dL 70-110 H 1724162317) CREATININE (test code = 1.95 mg/dL 0.6-1.25 H 2029889546) CALCIUM (test code = 8.6 mg/dL 8.6-10.6 5176552922) eGFR Calculation mL/min/1.73m2 (Non-) (test code = 3106612914) eGFR Calculation mL/min/1.73m2 () (test code = 9292772297) GILBERTO (test code = GILBERTO) Association of [...] tests). Lab Interpretation Abnormal (test code = 09142-5) [facility] HospitalMAGNESIUM2020-08-14 12:38:00 Test Item Value Reference Range Interpretation Comments MAGNESIUM (test code = 2068994518) 2.3 mg/dL 1.7-2.4 Lab Interpretation (test code = Normal 36511-6) [facility]XR [id number] 23:28:32 Prominent gaseous distention of small bowel [...] pelvis. Note: Left hemidiaphragm isnot fully within nitom-ug-bvzt. FINDINGS: Status post colectomy. Massive gaseous distention [...] and pelvis.Note: Left hemidiaphragm isnot fully within aygra-bq-xapu.FINDINGS:Status post colectomy.Massive gaseous distention of the stomach [...] this study and agree with theabove report. [facility] HospitalXR [id number] 23:22:45 Esophogastric tube tip projects over the [...] Bilateralhemidiaphragms and upper abdomen are not within oqzur-pg-xrat. FINDINGS: The tipof the esophogastric tube projects [...] Bilateralhemidiaphragms and upper abdomen are not within qchwz-cq-eegj.FINDINGS:The tip of the esophogastric tube projects over [...] reviewed this study and agree with theabove report.[facility] (NA, K, CL, CO2, GLUCOSE, BUN, CREATININE, CA)2020-04-05 11:08:00 Test Item Value Reference Range Interpretation Comments NA (test code = 137 mmol/L 135-145 5499953702) K (test code = 4.4 mmol/L 3.5-5 1369797925) CL (test code = 104 mmol/L 98-108 2015831522) CO2 TOTAL (test code = 24 mmol/L 23-31 1974578949) AGAP (test code = 2-16 9375429981) BUN (test code = 10 mg/dL 7-23 7128174573) GLUCOSE (test code = 104 mg/dL 70-110 7192742472) CREATININE (test code 1.18 mg/dL 0.6-1.25 = 3803394109) CALCIUM (test code = 8.7 mg/dL 8.6-10.6 9548377811) eGFR Calculation mL/min/1.73m2 (Non-) (test code = 0285401127) eGFR Calculation mL/min/1.73m2 () (test code = 4799897027) GILBERTO (test code = GILBERTO) Association of [...] or urine or abnormalities in imaging tests). [facility]2020-08-13 11:08:00 Test Item Value Reference Range Interpretation Comments MAGNESIUM (test code = 6028961515) 2.3 mg/dL 1.7-2.4 Lab Interpretation (test code = Normal 22473-6) [facility] HospitalCB WITH [id number] 10:32:00 Test Item Value Reference Range Interpretation [...] RDW-SD (test code = 47.8 fL 38.5-51.6 57529-2) RDW-CV (test code = 14.6 % 12.1-15.4 788-0) PLT (test code = See_Comment [Automated 777-3) message] The sy stem which generated this result transmitted reference range : 150 - 328 10*3/ ?L. The reference r meredith was not used to interpret this result as normal/abnormal . MPV (test code = 11.6 fL 9.8-13 67969-9) NRBC/100 WBC (test See_Comment [Automat ed code = 8696328735) message] The system which generated this result transmitted reference range : 0.0 - 10.0 /100 WBCs. The refer ence range was not u sed to interpret th is result as normal/abnormal . NRBC x10^3 (test code <0.01 See_Comment [Auto mated = 0294430834) message] The s ystem which generated this result transmitted reference range : 10*3/?L. The reference range was not used to interpret this result as normal/abnormal . GRAN MAT (NEUT) % 82.4 % (test code = 770-8) IMM GRAN % (test code 0.30 % = 2721672160) LYMPH % (test code = 12.4 % 736-9) MONO % (test code = 4.5 % 5905-5) EOS % (test code = 0.2 % 713-8) BASO % (test code = 0.2 % 706-2) GRAN MAT x10^3(ANC) 5.12 10*3/uL 1.99-6.95 (test code = 1511629870) IMM GRAN x10^3 (test <0.03 0-0.06 code = 2364652167) LYMPH x10^3 (test code 0.77 10*3/uL 1.09-3.23 L = 731-0) MONO x10^3 (test code 0.28 10*3/uL 0.36-1.02 L = 742-7) EOS x10^3 (test code = <0.03 0.06-0.53 L 711-2) BASO x10^3 (test code <0.03 0.01-0.09 = 704-7) Lab Interpretation Abnormal (test code = 12834-9) [facility] METABOLIC PANEL (NA, K, CL, CO2, GLUCOSE, BUN, CREATININE, CA)2020-04-04 11:02:00 Test Item Value Reference Range Interpretation Comments NA (test code = 135 mmol/L 135-145 7035600727) K (test code = 4.4 mmol/L 3.5-5 Slight 5784362735) hemolysis CL (test code = 103 mmol/L 98-108 4258611960) CO2 TOTAL (test code 26 mmol/L 23-31 = 0698053581) AGAP (test code = 2-16 0318260791) BUN (test code = 7 mg/dL 7-23 Slight 4858760025) hemolysis GLUCOSE (test code = 119 mg/dL 70-110 H 2449792979) CREATININE (test code 0.95 mg/dL 0.6-1.25 = 5619439833) CALCIUM (test code = 8.3 mg/dL 8.6-10.6 L 1582467730) eGFR Calculation mL/min/1.73m2 (Non-) (test code = 1780346266) eGFR Calculation mL/min/1.73m2 () (test code = 3955476484) GILBERTO (test code = GILBERTO) Association of [...] tests). Lab Interpretation Abnormal (test code = 60480-1) [facility]MAG[facility]2020-08-12 11:02:00 Test Item Value Reference Range Interpretation Comments MAGNESIUM (test code = 9980666176) 1.7 mg/dL 1.7-2.4 Lab Interpretation (test code = Normal 39517-0) [facility] WITH [id number] 10:31:00 Test Item Value Reference Range Interpretation Comments WBC (test code = See_Comment [Automated 6708-2) message] The sy stem which generated this result transmitted reference range : 4.20 - 10.70 10*3/?L. The reference range was not used to interpret this result as normal/abnormal . RBC (test code = See_Comment L [Automated 9098) message] The sy stem which generated this [...] RDW-SD (test code = 46.5 fL 38.5-51.6 26776-5) RDW-CV (test code = 14.3 % 12.1-15.4 788-0) PLT (test code = See_Comment L [Automated 777-3) message] The sy stem which generated this result transmitted reference range : 150 - 328 10*3/ ?L. The reference r meredith was not used to interpret this result as normal/abnormal . MPV (test code = 11.2 fL 9.8-13 31293-9) NRBC/100 WBC (test See_Comment [Automat ed code = 7971332005) message] The system which generated this result transmitted reference range : 0.0 - 10.0 /100 WBCs. The refer ence range was not u sed to interpret th is result as normal/abnormal . NRBC x10^3 (test code <0.01 See_Comment [Auto mated = 9270224011) message] The s ystem which generated this result transmitted reference range : 10*3/?L. The reference range was not used to interpret this result as normal/abnormal . GRAN MAT (NEUT) % 76.7 % (test code = 770-8) IMM GRAN % (test code 0.30 % = 7641016399) LYMPH % (test code = 16.4 % 736-9) MONO % (test code = 6.2 % 5905-5) EOS % (test code = 0.2 % 713-8) BASO % (test code = 0.2 % 706-2) GRAN MAT x10^3(ANC) 5.12 10*3/uL 1.99-6.95 (test code = 5211077250) IMM GRAN x10^3 (test <0.03 0-0.06 code = 5176590403) LYMPH x10^3 (test code 1.09 10*3/uL 1.09-3.23 = 731-0) MONO x10^3 (test code 0.41 10*3/uL 0.36-1.02 = 742-7) EOS x10^3 (test code = <0.03 0.06-0.53 L 711-2) BASO x10^3 (test code <0.03 0.01-0.09 = 704-7) Lab Interpretation Abnormal (test code = 66692-3) [facility] WITH [id number] 11:04:00 Test Item Value Reference Range Interpretation [...] RDW-SD (test code = 45.6 fL 38.5-51.6 80013-0) RDW-CV (test code = 14.0 % 12.1-15.4 788-0) PLT (test code = See_Comment L [Automated 777-3) message] The sy stem which generated this result transmitted reference range : 150 - 328 10*3/ ?L. The reference r meredith was not used to interpret this result as normal/abnormal . MPV (test code = 11.2 fL 9.8-13 23283-1) NRBC/100 WBC (test See_Comment [Automat ed code = 8478363287) message] The system which generated this result transmitted reference range : 0.0 - 10.0 /100 WBCs. The refer ence range was not u sed to interpret th is result as normal/abnormal . NRBC x10^3 (test code <0.01 See_Comment [Auto mated = 3984825956) message] The s ystem which generated this result transmitted reference range : 10*3/?L. The reference range was not used to interpret this result as normal/abnormal . GRAN MAT (NEUT) % 52.7 % (test code = 770-8) IMM GRAN % (test code 0.30 % = 8826624532) LYMPH % (test code = 34.6 % 736-9) MONO % (test code = 9.6 % 5905-5) EOS % (test code = 2.2 % 713-8) BASO % (test code = 0.6 % 706-2) GRAN MAT x10^3(ANC) 1.88 10*3/uL 1.99-6.95 L (test code = 0965799038) IMM GRAN x10^3 (test <0.03 0-0.06 code = 8710787327) LYMPH x10^3 (test code 1.23 10*3/uL 1.09-3.23 = 731-0) MONO x10^3 (test code 0.34 10*3/uL 0.36-1.02 L = 742-7) EOS x10^3 (test code = 0.08 10*3/uL 0.06-0.53 711-2) BASO x10^3 (test code <0.03 0.01-0.09 = 704-7) REACT LYMPHS (test Rare code = 8984669210) Lab Interpretation Abnormal (test code = 11953-1) [facility] METABOLIC PANEL (NA, K, CL, CO2, GLUCOSE, BUN, CREATININE, CA)2020-04-03 10:54:00 Test Item Value Reference Range Interpretation Comments NA (test code = 140 mmol/L 135-145 5805485096) K (test code = 3.9 mmol/L 3.5-5 6326241232) CL (test code = 107 mmol/L 98-108 2023072380) CO2 TOTAL (test code = 28 mmol/L 23-31 8055746169) AGAP (test code = 2-16 9039058639) BUN (test code = 4 mg/dL 7-23 L 3140346417) GLUCOSE (test code = 88 mg/dL 70-110 6136755535) CREATININE (test code = 0.96 mg/dL 0.6-1.25 5352383965) CALCIUM (test code = 8.6 mg/dL 8.6-10.6 3853196150) eGFR Calculation mL/min/1.73m2 (Non-) (test code = 7098007081) eGFR Calculation mL/min/1.73m2 () (test code = 9925396364) GILBERTO (test code = GILBERTO) Association of [...] tests). Lab Interpretation Abnormal (test code = 08774-0) [facility]2020-08-11 10:54:00 Test Item Value Reference Range Interpretation Comments MAGNESIUM (test code = 1014531267) 2.0 mg/dL 1.7-2.4 Lab Interpretation (test code = Normal 46328-6) [facility] HospitalType and Screen - ONCE [id number] 23:40:25 Test Item Value Reference Range Interpretation Comments ABO & RH (test code O POSITIVE Performe d at [facility] = 20) Laboratory Serv [facility] [address] [facility] [place] [address]Jlwa Free: [phone] A No. [id number] IAT (test code = Negative Performed a t [facility] 1185) Laboratory Serv [facility] [address] [facility] [place] [address]Rcnw Free: [phone] A No. [id number] [facility] HospitalCBC WITH [id number] 11:21:00 Test Item Value Reference Range Interpretation [...] RDW-SD (test code = 45.8 fL 38.5-51.6 01860-0) RDW-CV (test code = 14.2 % 12.1-15.4 788-0) PLT (test code = See_Comment L [Automated 777-3) message] The sy stem which generated this result transmitted reference range : 150 - 328 10*3/ ?L. The reference r meredith was not used to interpret this result as normal/abnormal . MPV (test code = 10.6 fL 9.8-13 07195-9) NRBC/100 WBC (test See_Comment [Automat ed code = 1594279268) message] The system which generated this result transmitted reference range : 0.0 - 10.0 /100 WBCs. The refer ence range was not u sed to interpret th is result as normal/abnormal . NRBC x10^3 (test code <0.01 See_Comment [Auto mated = 0040571967) message] The s ystem which generated this result transmitted reference range : 10*3/?L. The reference range was not used to interpret this result as normal/abnormal . GRAN MAT (NEUT) % 46.4 % (test code = 770-8) IMM GRAN % (test code 0.30 % = 5022596831) LYMPH % (test code = 38.8 % 736-9) MONO % (test code = 10.5 % 5905-5) EOS % (test code = 3.3 % 713-8) BASO % (test code = 0.7 % 706-2) GRAN MAT x10^3(ANC) 1.41 10*3/uL 1.99-6.95 L (test code = 6329095461) IMM GRAN x10^3 (test <0.03 0-0.06 code = 9360317351) LYMPH x10^3 (test code 1.18 10*3/uL 1.09-3.23 = 731-0) MONO x10^3 (test code 0.32 10*3/uL 0.36-1.02 L = 742-7) EOS x10^3 (test code = 0.10 10*3/uL 0.06-0.53 711-2) BASO x10^3 (test code <0.03 0.01-0.09 = 704-7) HYPERSEG NEUTS (test Present See_Comment A [Autom ated code = 765-8) message] The [employer] which generated this result transmitted reference range : (none). The reference range was not used to interpret this result as normal/abnormal . Lab Interpretation Abnormal (test code = 76324-4) [facility] METABOLIC PANEL (NA, K, CL, CO2, GLUCOSE, BUN, CREATININE, CA)2020-04-02 11:05:00 Test Item Value Reference Range Interpretation Comments NA (test code = 139 mmol/L 135-145 2403346936) K (test code = 4.0 mmol/L 3.5-5 8011440258) CL (test code = 108 mmol/L 98-108 1205411125) CO2 TOTAL (test code = 25 mmol/L 23-31 9434361063) AGAP (test code = 2-16 4316791136) BUN (test code = 6 mg/dL 7-23 L 7144559974) GLUCOSE (test code = 99 mg/dL 70-110 7087797386) CREATININE (test code = 0.92 mg/dL 0.6-1.25 7682541343) CALCIUM (test code = 8.3 mg/dL 8.6-10.6 L 7108094149) eGFR Calculation mL/min/1.73m2 (Non-) (test code = 3136608064) eGFR Calculation mL/min/1.73m2 () (test code = 4724231954) GILBERTO (test code = GILBERTO) Association of [...] tests). Lab Interpretation Abnormal (test code = 82263-6) [facility] HospitalMAG[facility]UM2020-08-10 11:05:00 Test Item Value Reference Range Interpretation Comments MAGNESIUM (test code = 2273225750) 2.0 mg/dL 1.7-2.4 Lab Interpretation (test code = Normal 46149-3) 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 It is used under Emergency Use [...] indicated. Lab Interpretation Normal (test code = 85590-8) [facility] HospitalUrinalysis2020-08-08 11:39:00 Test Item Value Reference Range Interpretation Comments APPEARANCE (test code = Hazy Clear A 0691644781) COLOR (test code = Yellow Yellow 3525973821) PH (test code = 4.8-8.0 9812984749) SP GRAVITY (test code = 1.003-1.030 H 6717003453) GLU U QUAL (test code = Normal Normal 0710791680) BLOOD (test code = Negative Negative 3142831563) KETONES (test code = 5 mg/dL Negative A 5060641373) PROTEIN (test code = Negative Negative 2887-8) UROBILIN (test code = 2.0 mg/dL Normal A 3404702233) BILIRUBIN (test code = Negative Negative 2507528092) NITRITE (test code = Negative Negative 0969362667) LEUK ROGER (test code = Negative Negative 6495687874) RBC/HPF (test code = See_Comment [Autom ated message] 2491481256) The system [employer] generated this result transmit dain reference range : 0 - 3 HPF. The refe rence range was not u sed to interpret th is result as normal/abnormal . WBC/HPF (test code = See_Comment [Autom ated message] 6902233643) The system [employer] generated this result transmit dain reference range : 0 - 5 HPF. The refe rence range was not u sed to interpret th is result as normal/abnormal . BACTERIA (test code = Negative Negative 0188650869) CA OXALATE (test code = See_Comment H [Au tomated message] 8754805150) The system [employer] generated this result transmit dain reference range : <=1 HPF. The refere nce range was not u sed to interpret th is result as normal/abnormal . Lab Interpretation (test Abnormal code = 45718-0) [facility] HospitalCT ABDOMEN PELVIS W [id number] 00:38:37 1. ?Massive air distention of the [...] focal loculated drainable fluidcollection.RL: 460END OF REPORT [facility] (NA, K, CL, CO2, GLUCOSE, BUN, CREATININE, CA)2020-03-30 23:45:00 Test Item Value Reference Range Interpretation Comments NA (test code = 140 mmol/L 135-145 3775046851) K (test code = 4.3 mmol/L 3.5-5 5214320887) CL (test code = 101 mmol/L 98-108 9310950178) CO2 TOTAL (test code = 28 mmol/L 23-31 4257458477) AGAP (test code = 2-16 9095298998) BUN (test code = 24 mg/dL 7-23 H 2363554302) GLUCOSE (test code = 90 mg/dL 70-110 6819894489) CREATININE (test code = 1.29 mg/dL 0.6-1.25 H 4029482999) CALCIUM (test code = 9.4 mg/dL 8.6-10.6 8731943680) eGFR Calculation mL/min/1.73m2 (Non-) (test code = 8570306924) eGFR Calculation mL/min/1.73m2 () (test code = 9876927199) GILBERTO (test code = GILBERTO) Association of [...] tests). Lab Interpretation Abnormal (test code = 12198-0) [facility] 1 [id number] 23:00:46 No evidence for an acute cardiopulmonary process. Unchanged asymmetric elevation of the left hemidiaphragm. Air-filled colon, similar to that seen on the March 02, 2020 exam. RL: ?3708 [facility]: Abdominal pain ORDERING [...] free air is seen under the diaphragm. [facility], Radiant Results Inft User - 03/30/2020 6:01 [...] on the March 02, 2020 exam.RL: 3708 [facility] CenterTropotimmy [id number] 22:39:00 Test Item Value Reference Range Interpretation Comments TROPONIN I (test 0.008 ng/mL See_Comment [Automated code = 3040614508) message] The system which generated this result [...] ? Lab Interpretation Normal (test code = 10414-4) [facility] HospitalN-TERMINAL [id number] 22:39:00 Test Item Value Reference Range Interpretation Comments NT-proBNP (test code 42 pg/mL See_Comment [Autom ated = 3137471186) message] The system which generated this result transmitted reference range : <=125. The reference range was not used to interpret this result as normal/abnormal . GILBERTO (test code = GILBERTO) Biotin has been reported to cause a negative bias, interpret results relative to patient's use of biotin. Lab Interpretation Normal (test code = 40542-7) [facility] HospitalHepatic Function Panel (ALB, T.PRO, BILI T, BU/BC, ALT, AST, ALK PHOS)2020-03-30 22:27:00 Test Item Value Reference Range Interpretation Comments TOTAL BILI (test code = 4669450097) 0.5 mg/dL 0.1-1.1 BILI UNCON (test code = 0568079461) 0.3 mg/dL 0.1-1.1 BILI CONJ (test code = 6002665302) 0.0 mg/dL 0-0.3 T PROTEIN (test code = 5293912187) 6.7 g/dL 6.3-8.2 ALBUMIN (test code = 8589345774) 4.5 g/dL 3.5-5 ALK PHOS (test code = 5675055458) 57 U/L 34-122 ALTv (test code = 1742-6) 31 U/L 5-50 AST(SGOT) (test code = 1377169231) 38 U/L 13-40 Lab Interpretation (test code = Normal 18362-4) [facility] HospitalLipase [id number] 22:27:00 Test Item Value Reference Range Interpretation Comments LIPASE (test code = 4571122180) 62 U/L 0-220 Lab Interpretation (test code = Normal 42519-6) [facility] HospitalaPTT2020-08-07 22:25:00 Test Item Value Reference Range Interpretation Comments APTT Patient (test code = See_Comment [ Automated message] 3173-2) The system [employer] generated this result transmitted ref erence range: 26 - 36 Seconds. The re ference range was not u sed to interpret this result as normal/abnor mal. Lab Interpretation (test Normal code = 51304-0) [facility] HospitalProthrombin Time (PT) / [id number] 22:25:00 Test Item Value Reference Range Interpretation [...] tions. Lab Interpretation (test Normal code = 83343-3) [facility] HospitalCBC with [id number] 22:17:00 Test Item Value Reference Range Interpretation Comments WBC (test code = See_Comment [Automated 7190-2) message] The sy stem which generated this [...] RDW-SD (test code = 46.9 fL 38.5-51.6 58971-7) RDW-CV (test code = 14.3 % 12.1-15.4 788-0) PLT (test code = See_Comment [Automated 777-3) message] The sy stem which generated this result transmitted reference range : 150 - 328 10*3/ ?L. The reference r meredith was not used to interpret this result as normal/abnormal . MPV (test code = 10.7 fL 9.8-13 63715-0) NRBC/100 WBC (test See_Comment [Automat ed code = 5707853937) message] The system which generated this result transmitted reference range : 0.0 - 10.0 /100 WBCs. The refer ence range was not u sed to interpret th is result as normal/abnormal . NRBC x10^3 (test code <0.01 See_Comment [Auto mated = 6891884289) message] The s ystem which generated this result transmitted reference range : 10*3/?L. The reference range was not used to interpret this result as normal/abnormal . GRAN MAT (NEUT) % 51.7 % (test code = 770-8) IMM GRAN % (test code 0.40 % = 7988745339) LYMPH % (test code = 32.8 % 736-9) MONO % (test code = 12.4 % 5905-5) EOS % (test code = 2.1 % 713-8) BASO % (test code = 0.6 % 706-2) GRAN MAT x10^3(ANC) 2.76 10*3/uL 1.99-6.95 (test code = 3256176876) IMM GRAN x10^3 (test <0.03 0-0.06 code = 8821839422) LYMPH x10^3 (test code 1.75 10*3/uL 1.09-3.23 = 731-0) MONO x10^3 (test code 0.66 10*3/uL 0.36-1.02 = 742-7) EOS x10^3 (test code = 0.11 10*3/uL 0.06-0.53 711-2) BASO x10^3 (test code 0.03 10*3/uL 0.01-0.09 = 704-7) Lab Interpretation Abnormal (test code = 00485-8) [facility] with Qeksmwvtpbvh3220-58-30 10:26:00 Test Item Value Reference Range Interpretation [...] RDW-SD (test code = 46.3 fL 38.5-51.6 29887-4) RDW-CV (test code = 14.2 % 12.1-15.4 788-0) PLT (test code = See_Comment L [Automated 777-3) message] The sy stem which generated this result transmitted reference range : 150 - 328 10*3/ ?L. The reference r meredith was not used to interpret this result as normal/abnormal . MPV (test code = 10.6 fL 9.8-13 60861-1) NRBC/100 WBC (test See_Comment [Automat ed code = 3182032015) message] The system which generated this result transmitted reference range : 0.0 - 10.0 /100 WBCs. The refer ence range was not u sed to interpret th is result as normal/abnormal . NRBC x10^3 (test code <0.01 See_Comment [Auto mated = 8349346536) message] The s ystem which generated this result transmitted reference range : 10*3/?L. The reference range was not used to interpret this result as normal/abnormal . GRAN MAT (NEUT) % 51.3 % (test code = 770-8) IMM GRAN % (test code 0.30 % = 5051722224) LYMPH % (test code = 32.2 % 736-9) MONO % (test code = 12.7 % 5905-5) EOS % (test code = 3.0 % 713-8) BASO % (test code = 0.5 % 706-2) GRAN MAT x10^3(ANC) 1.89 10*3/uL 1.99-6.95 L (test code = 8571440327) IMM GRAN x10^3 (test <0.03 0-0.06 code = 8189503511) LYMPH x10^3 (test code 1.19 10*3/uL 1.09-3.23 = 731-0) MONO x10^3 (test code 0.47 10*3/uL 0.36-1.02 = 742-7) EOS x10^3 (test code = 0.11 10*3/uL 0.06-0.53 711-2) BASO x10^3 (test code <0.03 0.01-0.09 = 704-7) Lab Interpretation Abnormal (test code = 97947-7) [facility] HospitalMagnesium [id number] 10:17:00 Test Item Value Reference Range Interpretation Comments MAGNESIUM (test code = 8624410167) 2.0 mg/dL 1.7-2.4 Lab Interpretation (test code = Normal 70186-0) [facility] Metabolic Panel (NA, K, CL, CO2, GLUCOSE, BUN, CREATININE, CA)2020-03-26 10:17:00 Test Item Value Reference Range Interpretation Comments NA (test code = 136 mmol/L 135-145 2328299743) K (test code = 4.6 mmol/L 3.5-5 Slight 5796869849) hemolysis CL (test code = 109 mmol/L 98-108 H 3471449973) CO2 TOTAL (test code 26 mmol/L 23-31 = 2540668727) AGAP (test code = 2-16 L 4534435936) BUN (test code = 22 mg/dL 7-23 Slight 5170759599) hemolysis GLUCOSE (test code = 82 mg/dL 70-110 9336880435) CREATININE (test code 0.88 mg/dL 0.6-1.25 = 3038156150) CALCIUM (test code = 8.1 mg/dL 8.6-10.6 L 4718604717) eGFR Calculation mL/min/1.73m2 (Non-) (test code = 2187832203) eGFR Calculation mL/min/1.73m2 () (test code = 0491391074) GILBERTO (test code = GILBERTO) Association of [...] tests). Lab Interpretation Abnormal (test code = 97559-9) [facility] HospitalLactic Acid Whole [id number] 04:22:00 Test Item Value Reference Range Interpretation Comments LACTIC ACID (test code = 1.52 mmol/L 1407204509) [facility] HospitalPhosphorus [id number] 03:37:00 Test Item Value Reference Range Interpretation Comments PHOSPHORUS (test code = 5022546927) 4.6 mg/dL 2.5-5 Lab Interpretation (test code = Normal 32268-2) [facility] Test Item Value Reference Range Interpretation Comments MAGNESIUM (test code = 8035012903) 2.3 mg/dL 1.7-2.4 Lab Interpretation (test code = Normal 52392-3) [facility] HospitalCOVID-19 (ID NOW RAPID TESTING)2020-03-26 02:24:00 Test Item Value Reference Range Interpretation Comments SARS-CoV-2 Rapid ID NOW Not Detected Not Detected (test code = 79096-9) GILBERTO (test code = GILBERTO) ID NOW COVID-19 Assay is an isothermal nucleic acid amplification test intended for the qualitative detection of nucleic acid from SARS-CoV-2 viral RNA in nasopharyngeal (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) specimens. It is used under Emergency Use [...] indicated. Lab Interpretation Normal (test code = 51078-3) [facility] W [id number] 01:33:06 Redemonstration of severe dilatation of the [...] No focal bowel inflammation or wall thickening.. [facility] Metabolic Panel (NA, K, CL, CO2, GLUCOSE, BUN, CREATININE, CA)2020-03-26 00:57:00 Test Item Value Reference Range Interpretation Comments NA (test code = 139 mmol/L 135-145 [id number]) K (test code = 4.4 mmol/L 3.5-5 [id number]) CL (test code = 105 mmol/L 98-108 [id number]) CO2 TOTAL (test code = 29 mmol/L 23-31 1153807043) AGAP (test code = 2-16 7820646842) BUN (test code = 28 mg/dL 7-23 H 6304966966) GLUCOSE (test code = 84 mg/dL 70-110 6220757999) CREATININE (test code = 1.19 mg/dL 0.6-1.25 8597714820) CALCIUM (test code = 8.9 mg/dL 8.6-10.6 8305898107) eGFR Calculation mL/min/1.73m2 (Non-) (test code = 2165166933) eGFR Calculation mL/min/1.73m2 () (test code = 6932929145) GILBERTO (test code = GILBERTO) Association of [...] tests). Lab Interpretation Abnormal (test code = 41841-2) [facility] (ALB, T.PRO, BILI T, BU/BC, ALT, AST, ALK PHOS)2020-03-26 00:57:00 Test Item Value Reference Range Interpretation Comments TOTAL BILI (test code = 6891849484) 0.2 mg/dL 0.1-1.1 BILI UNCON (test code = 0923739106) 0.0 mg/dL 0.1-1.1 L BILI CONJ (test code = 4075149680) 0.0 mg/dL 0-0.3 T PROTEIN (test code = 0688710642) 6.2 g/dL 6.3-8.2 L ALBUMIN (test code = 9731555326) 4.1 g/dL 3.5-5 ALK PHOS (test code = 4359239188) 56 U/L 34-122 ALTv (test code = 1742-6) 24 U/L 5-50 AST(SGOT) (test code = 3492277987) 28 U/L 13-40 Lab Interpretation (test code = Abnormal 95042-6) [facility] HospitalCBC with Swipimytabxq4096-52-52 00:47:00 Test Item Value Reference Range Interpretation Comments WBC (test code = See_Comment [Automated 1190-2) message] The sy stem which generated this result transmitted reference range : 4.20 - 10.70 10*3/?L. The reference range was not used to interpret this result as normal/abnormal . RBC (test code = See_Comment L [Automated 389-8) message] The sy stem which generated this [...] RDW-SD (test code = 45.9 fL 38.5-51.6 77598-6) RDW-CV (test code = 14.0 % 12.1-15.4 788-0) PLT (test code = See_Comment [Automated 777-3) message] The sy stem which generated this result transmitted reference range : 150 - 328 10*3/ ?L. The reference r meredith was not used to interpret this result as normal/abnormal . MPV (test code = 10.9 fL 9.8-13 44007-0) NRBC/100 WBC (test See_Comment [Automat ed code = 0009057595) message] The system which generated this result transmitted reference range : 0.0 - 10.0 /100 WBCs. The refer ence range was not u sed to interpret th is result as normal/abnormal . NRBC x10^3 (test code <0.01 See_Comment [Auto mated = 1522996453) message] The s ystem which generated this result transmitted reference range : 10*3/?L. The reference range was not used to interpret this result as normal/abnormal . GRAN MAT (NEUT) % 49.8 % (test code = 770-8) IMM GRAN % (test code 0.20 % = 4846075497) LYMPH % (test code = 32.0 % 736-9) MONO % (test code = 14.3 % 5905-5) EOS % (test code = 3.0 % 713-8) BASO % (test code = 0.7 % 706-2) GRAN MAT x10^3(ANC) 2.29 10*3/uL 1.99-6.95 (test code = 1089512715) IMM GRAN x10^3 (test <0.03 0-0.06 code = 6530494679) LYMPH x10^3 (test code 1.47 10*3/uL 1.09-3.23 = 731-0) MONO x10^3 (test code 0.66 10*3/uL 0.36-1.02 = 742-7) EOS x10^3 (test code = 0.14 10*3/uL 0.06-0.53 711-2) BASO x10^3 (test code 0.03 10*3/uL 0.01-0.09 = 704-7) Lab Interpretation Abnormal (test code = 31334-7) [facility] HospitalMagnesium [id number] 05:23:00 Test Item Value Reference Range Interpretation Comments MAGNESIUM (test code = 0141505230) 2.1 mg/dL 1.7-2.4 Lab Interpretation (test code = Normal 57121-1) [facility] HospitalCOVID-19 (ID NOW RAPID TESTING)2020-03-03 04:45:00 Test Item Value Reference Range Interpretation Comments SARS-CoV-2 Rapid ID NOW Not Detected Not Detected (test code = 96070-1) GILBERTO (test code = GILBERTO) ID NOW COVID-19 Assay is an isothermal nucleic acid amplification test intended for the qualitative detection of nucleic acid from SARS-CoV-2 viral RNA in nasopharyngeal (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) specimens. It is used under Emergency Use [...] indicated. Lab Interpretation Normal (test code = 95951-4) [facility] HospitalProthrombin Time / [id number] 04:40:00 Test Item Value Reference Range Interpretation [...] tions. Lab Interpretation (test Normal code = 96463-1) [facility] HospitalaPTT2020-07-11 04:40:00 Test Item Value Reference Range Interpretation Comments APTT Patient (test code = See_Comment [ Automated message] 3173-2) The system [employer] h generated this result transmitted ref erence range: 26 - 36 Seconds. The re ference range was not u sed to interpret this result as normal/abnor mal. Lab Interpretation (test Normal code = 33727-7) [facility] HospitalPhosphorus Awoir8538-00-21 04:31:00 Test Item Value Reference Range Interpretation Comments PHOSPHORUS (test code = 6199961783) 4.0 mg/dL 2.5-5 Lab Interpretation (test code = Normal 89332-9) [facility] HospitalXR ABDOMEN ACUTE SONHZB2734-13-51 02:54:09 Impression: No radiographic evidence for acute cardiopulmonary disease. No radiographic evidence forpneumoperitoneum. Marked gaseous distention of predominantly large bowel loops in the abdomenand pelvis, similar to prior CT of 02/26/2020. On that CT, there was atransition in the distal descending colon, without mass lesion or definitesigmoid volvulus appreciated. RL: 460 AFC: 05524 Indication: Diffuse abdominal pain, obstructionComparison: CT the [...] lesion or definitesigmoid volvulus appreciated. RL: 460AF: 40361Iombasddfptsbi signed by Angeli Carrillo MD, PhD at 03/02/2020 9:54 PM [facility] HospitalUrinalysis2020-07-11 01:50:00 Test Item Value Reference Range Interpretation Comments APPEARANCE (test code = Hazy Clear A 2384914073) COLOR (test code = Tahira Yellow A 6646465319) PH (test code = 4.8-8.0 0835338718) SP GRAVITY (test code = 1.003-1.030 2663595302) GLU U QUAL (test code = Normal Normal 0478599463) BLOOD (test code = Negative Negative 1952283045) KETONES (test code = 5 mg/dL Negative A 0651686915) PROTEIN (test code = Negative Negative 2887-8) UROBILIN (test code = 2.0 mg/dL Normal A 2375048019) BILIRUBIN (test code = Negative Negative 5610542869) NITRITE (test code = Negative Negative 0785042657) LEUK ROGER (test code = Negative Negative 4362218211) RBC/HPF (test code = See_Comment [Autom ated message] 5047220774) The system [employer] generated this result transmit dain reference range : 0 - 3 HPF. The refe rence range was not u sed to interpret th is result as normal/abnormal . WBC/HPF (test code = See_Comment [Autom ated message] 1189410949) The system [employer] generated this result transmit dain reference range : 0 - 5 HPF. The refe rence range was not u sed to interpret th is result as normal/abnormal . BACTERIA (test code = Negative Negative 8054059840) MUCOUS (test code = Slight Negative LPF A 0295230645) SQ EPITH (test code = <1 See_Comment [Auto mated message] 9478004862) The system [employer] generated this result transmit dain reference range : <=2 HPF. The refere nce range was not u sed to interpret th is result as normal/abnormal . CA OXALATE (test code = See_Comment H [Au tomated message] 9864613108) The system [employer] generated this result transmit dain reference range : <=1 HPF. The refere nce range was not u sed to interpret th is result as normal/abnormal . SPERM (test code = See_Comment [Automat ed message] 2715196568) The system [employer] generated this result transmit dain reference range : <=1 HPF. The refere nce range was not u sed to interpret th is result as normal/abnormal . Lab Interpretation (test Abnormal code = 86178-1) [facility] (NA, K, CL, CO2, GLUCOSE, BUN, CREATININE, CA)2020-03-03 01:44:00 Test Item Value Reference Range Interpretation Comments NA (test code = 140 mmol/L 135-145 1429993884) K (test code = 4.1 mmol/L 3.5-5 4852059732) CL (test code = 106 mmol/L 98-108 1072468938) CO2 TOTAL (test code = 25 mmol/L 23-31 5831825750) AGAP (test code = 2-16 5851361033) BUN (test code = 17 mg/dL 7-23 2291711130) GLUCOSE (test code = 91 mg/dL 70-110 7359449031) CREATININE (test code 1.13 mg/dL 0.6-1.25 = 0725880087) CALCIUM (test code = 9.0 mg/dL 8.6-10.6 7030167034) eGFR Calculation mL/min/1.73m2 (Non-) (test code = 5705233900) eGFR Calculation mL/min/1.73m2 () (test code = 6639972440) GILBERTO (test code = GILBERTO) Association of [...] or urine or abnormalities in imaging tests). [facility] HospitalHepatic Function Panel (ALB, T.PRO, BILI T, BU/BC, ALT, AST, ALK PHOS)2020-03-03 01:44:00 Test Item Value Reference Range Interpretation Comments TOTAL BILI (test code = 2135906257) 0.4 mg/dL 0.1-1.1 BILI UNCON (test code = 1425350862) 0.4 mg/dL 0.1-1.1 BILI CONJ (test code = 8318880834) 0.0 mg/dL 0-0.3 T PROTEIN (test code = 3623983936) 6.3 g/dL 6.3-8.2 ALBUMIN (test code = 4645338248) 4.2 g/dL 3.5-5 ALK PHOS (test code = 8201418428) 43 U/L 34-122 ALTv (test code = 1742-6) 20 U/L 5-50 AST(SGOT) (test code = 5725117136) 26 U/L 13-40 Lab Interpretation (test code = Normal 04355-0) [facility] WITH [id number] 01:37:00 Test Item Value Reference Range Interpretation [...] RDW-SD (test code = 45.0 fL 38.5-51.6 36411-8) RDW-CV (test code = 13.7 % 12.1-15.4 788-0) PLT (test code = See_Comment [Automated 777-3) message] The sy stem which generated this result transmitted reference range : 150 - 328 10*3/ ?L. The reference r meredith was not used to interpret this result as normal/abnormal . MPV (test code = 11.3 fL 9.8-13 86702-0) NRBC/100 WBC (test See_Comment [Automat ed code = 6030640322) message] The system which generated this result transmitted reference range : 0.0 - 10.0 /100 WBCs. The refer ence range was not u sed to interpret th is result as normal/abnormal . NRBC x10^3 (test code <0.01 See_Comment [Auto mated = 5367997503) message] The s [employer] which generated this result transmitted reference range : 10*3/?L. The reference range was not used to interpret this result as normal/abnormal . GRAN MAT (NEUT) % 53.2 % (test code = 770-8) IMM GRAN % (test code 0.20 % = 3092870704) LYMPH % (test code = 34.5 % 736-9) MONO % (test code = 9.7 % 5905-5) EOS % (test code = 1.8 % 713-8) BASO % (test code = 0.6 % 706-2) GRAN MAT x10^3(ANC) 2.69 10*3/uL 1.99-6.95 (test code = 3519908729) IMM GRAN x10^3 (test <0.03 0-0.06 code = 6614943512) LYMPH x10^3 (test code 1.74 10*3/uL 1.09-3.23 = 731-0) MONO x10^3 (test code 0.49 10*3/uL 0.36-1.02 = 742-7) EOS x10^3 (test code = 0.09 10*3/uL 0.06-0.53 711-2) BASO x10^3 (test code 0.03 10*3/uL 0.01-0.09 = 704-7) Lab Interpretation Abnormal (test code = 46642-0) [facility] HospitalLactic Acid Whole [id number] 01:28:00 Test Item Value Reference Range Interpretation Comments LACTIC ACID (test code = 1.62 mmol/L 5834761964) [facility] HospitalDRUG PANEL 2 [id number] 22:13:00 Test Item Value Reference Range Interpretation Comments AMPHET (test code = Negative Negative 7530415023) LOS U (test code = Negative Negative 0454847212) BENZO U (test code = Negative Negative 3091590997) Cocaine Metabolite (test Negative Negative code = 8137966396) METHADONE (test code = Negative Negative 5097269414) OPIATES (test code = Negative Negative 8746061147) PCP (test code = Negative Negative 6844395191) THC (test code = Negative Negative 3248674926) GILBERTO (test code = GILBERTO) Urine Drug [...] testing). Lab Interpretation (test Normal code = 06795-9) [facility] HospitalTHYROID STIMULATING [id number] 19:02:00 Test Item Value Reference Range Interpretation Comments TSH (test code = See_Comment [Automated message] 0284952284) The system [employer] generated this result transmitted ref erence range: 0.45 - 4 .70 mIU/L. The refe rence range was not u sed to interpret this result as normal/abnor mal. Lab Interpretation (test Normal code = 64160-6) [facility] [id number] 18:49:00 Test Item Value Reference Range Interpretation Comments FREE T3 (test code = 6373825193) 2.56 pg/mL 2.77-5.27 L Lab Interpretation (test code = Abnormal 88348-0) [facility] acute hospital [id number] 18:49:00 Test Item Value Reference Range Interpretation Comments FREE T4 (test code = See_Comment [Autom ated message] 6133035810) The system [employer] generated this result transmitted ref erence range: 0.78 - 2 .20 ng/dL:. The ref erence range was not u sed to interpret this result as normal/abnor mal. Lab Interpretation (test Normal code = 30065-1) [facility] HospitalCT ABDOMEN PELVIS W [id number] 20:56:47 Persistent marked severe dilatation of the [...] No focal hepatic lesions. Normal contour. Hepatomegaly, rjodnkbxe90.7 cm, in the craniocaudal dimension. Diffuse hypoattenuation [...] No focal hepatic lesions. Normal contour. Hepatomegaly, nimaglqtw24.7 cm, in the craniocaudal dimension. Diffuse hypoattenuation [...] this study and agree withthe above report. [facility] HospitalCOVID-19 (ID NOW RAPID TESTING)2020-02-26 07:03:00 Test Item Value Reference Range Interpretation Comments SARS-CoV-2 Rapid ID NOW Not Detected Not Detected (test code = 49701-1) GILBERTO (test code = GILBERTO) ID NOW COVID-19 Assay is an isothermal nucleic acid amplification test intended for the qualitative detection of nucleic acid from SARS-CoV-2 viral RNA in nasopharyngeal (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) specimens. It is used under Emergency Use [...] indicated. Lab Interpretation Normal (test code = 89689-2) [facility] HospitalXR ABDOMEN ACUTE WNNCXR9166-12-04 05:00:33 Impression: No radiographic evidence for acute cardiopulmonary disease. Marked gaseous distention ofthe colon, with a relative paucity of gas inthe distal sigmoid colon and rectum. This may reflect pseudoobstruction,but mechanical distal colonic obstruction cannot be excluded. RL: 460 AF: 28063 Ordering physician: SABI Briggsdication: Abdominal distention Comparison: [...] the distal sigmoid colon and rectum. [facility], Radiant Results Inft User - 02/26/2020 [...] distal colonic obstruction cannot be excluded.RL: 460AFC: 63419Xbirzyqbmoqwnv signed by Angeli Carrillo MD, PhD at 02/26/2020 12:00 [facility] (NA, K, CL, CO2, GLUCOSE, BUN, CREATININE, CA)2020-02-26 04:03:00 Test Item Value Reference Range Interpretation Comments NA (test code = 142 mmol/L 135-145 4142752731) K (test code = 4.1 mmol/L 3.5-5 5684221592) CL (test code = 107 mmol/L 98-108 1970988703) CO2 TOTAL (test code = 29 mmol/L 23-31 3961333657) AGAP (test code = 2-16 9522826725) BUN (test code = 13 mg/dL 7-23 5567136316) GLUCOSE (test code = 82 mg/dL 70-110 3811348569) CREATININE (test code 1.14 mg/dL 0.6-1.25 = 2556585164) CALCIUM (test code = 9.5 mg/dL 8.6-10.6 5931362395) eGFR Calculation mL/min/1.73m2 (Non-) (test code = 1828695906) eGFR Calculation mL/min/1.73m2 () (test code = 3074931315) GILBERTO (test code = GILBERTO) Association of [...] or urine or abnormalities in imaging tests). [facility] HospitalHepatic Function Panel (ALB, T.PRO, BILI T, BU/BC, ALT, AST, ALK PHOS)2020-02-26 04:03:00 Test Item Value Reference Range Interpretation Comments TOTAL BILI (test code = 3653625212) 0.5 mg/dL 0.1-1.1 BILI UNCON (test code = 6178801820) 0.5 mg/dL 0.1-1.1 BILI CONJ (test code = 8260641156) 0.0 mg/dL 0-0.3 T PROTEIN (test code = 5828755261) 6.2 g/dL 6.3-8.2 L ALBUMIN (test code = 6368653066) 4.2 g/dL 3.5-5 ALK PHOS (test code = 9657879197) 40 U/L 34-122 ALTv (test code = 1742-6) 20 U/L 5-50 AST(SGOT) (test code = 6733741674) 26 U/L 13-40 Lab Interpretation (test code = Abnormal 93731-6) [facility] HospitalLipase [id number] 04:03:00 Test Item Value Reference Range Interpretation Comments LIPASE (test code = 0659368050) 57 U/L 0-220 Lab Interpretation (test code = Normal 00552-2) [facility] HospitalLactic Acid Whole [id number] 03:52:00 Test Item Value Reference Range Interpretation Comments LACTIC ACID (test code = 1.66 mmol/L 0.5-2.2 1104021236) [facility] WITH [id number] 03:47:00 Test Item Value Reference Range Interpretation [...] RDW-SD (test code = 45.1 fL 38.5-51.6 27536-0) RDW-CV (test code = 13.7 % 12.1-15.4 788-0) PLT (test code = See_Comment [Automated 777-3) message] The sy stem which generated this result transmitted reference range : 150 - 328 10*3/ ?L. The reference r meredith was not used to interpret this result as normal/abnormal . MPV (test code = 10.7 fL 9.8-13 51530-5) NRBC/100 WBC (test See_Comment [Automat ed code = 2961443254) message] The system which generated this result transmitted reference range : 0.0 - 10.0 /100 WBCs. The refer ence range was not u sed to interpret th is result as normal/abnormal . NRBC x10^3 (test code <0.01 See_Comment [Auto mated = 8835849115) message] The s ystem which generated this result transmitted reference range : 10*3/?L. The reference range was not used to interpret this result as normal/abnormal . GRAN MAT (NEUT) % 63.1 % (test code = 770-8) IMM GRAN % (test code 0.40 % = 2628401362) LYMPH % (test code = 25.1 % 736-9) MONO % (test code = 9.9 % 5905-5) EOS % (test code = 1.1 % 713-8) BASO % (test code = 0.4 % 706-2) GRAN MAT x10^3(ANC) 3.52 10*3/uL 1.99-6.95 (test code = 7414428503) IMM GRAN x10^3 (test <0.03 0-0.06 code = 4811935474) LYMPH x10^3 (test code 1.40 10*3/uL 1.09-3.23 = 731-0) MONO x10^3 (test code 0.55 10*3/uL 0.36-1.02 = 742-7) EOS x10^3 (test code = 0.06 10*3/uL 0.06-0.53 711-2) BASO x10^3 (test code <0.03 0.01-0.09 = 704-7) Lab Interpretation Abnormal (test code = 47464-3) 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 Acct: [id number] Dis Date: Status: ADM IN PHONE#: [phone] Exam Date: 02/25/2020 1037 FAX #: Reason: abdominal distention EXAMS: CPT: [id number] XR ABDOMEN 1 V 65486 Fluoro Time: DAP (Gy m2): Air Kerma [...] Signed Report Name: DORA JOSEPH [facility] : 1970 Age/S: 50 / M [address] Unit #: [id number] Loc: [place] [address] 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 Acct: [id number] Dis Date: Status: ADM IN PHONE #: [phone] Exam Date: 02/25/2020 1036 FAX #: Reason: abdominal distention EXAMS:CPT: [id number] XR ABDOMEN 1 V 19594 Fluoro Time: DAP (Gy m2): Air Kerma (mGy): <Continued> Technologist: Nichole Dill RT(R) Trnscb Date/Time: 02/25/2020 (1473) t.FLEXR.EFM1 Orig Print D/T: S: 02/25/2020 (2395) PAGE 2 Signed Report COMPREHENSIVE METABOLIC [id number] 08:20:00 Test Item Value Reference Range Interpretation [...] 50-136 L TOTAL (test code = ALKP) [id number] 08:20:00 Test Item Value Reference Range Interpretation Comments MAGNESIUM (test code = MAG) 2.2 MG/DL 1.8-2.4 N THYROID STIMULATING [id number] 08:20:00 Test Item Value Reference Range Interpretation Comments THYROID STIMULATING HORMONE 5.430 mcIU/ML 0.340-4.820 H (test code = TSH) CBC W/AUTO [id number] 07:55:00 Test Item Value Reference Range Interpretation [...] N NRBC#) UA RFLX MICR CULT IF [id number] 12:29:00 Test Item Value Reference Range Interpretation [...] culture: Suprapubic PainUA RFLX MICR CULT IF [id number] 12:29:00 Test Item Value Reference Range Interpretation [...] for culture: Suprapubic PainCOVID 19 Asymptomatic IH [id number] 22:09:00 Test Item Value Reference Range Interpretation [...] tent with COVID-19. - CT ABD PELVIS W/[id number] 21:10:00 Name: DORA JOSEPH [facility] : 1970 Age/S: 50 / M [address] Unit #: [id number] Loc: [place] [address] Phys: Evin Castellanos MD Acct: [id number] Dis Date: Status: REG ER PHONE #: [phone] Exam Date: 02/23/20202047 FAX #: Reason: diffuse abdomen pain and distention EXAMS: CPT: [id number] CT ABD PELVIS W/CONT 67679 EXAM: - CT ABD PELVIS W/CONT LOCATION: [...] 1 Signed Report (CONTINUED) Name: DORA JOSEPH [place] : 1970 Age/S: 50 / M [address] Unit #: [id number] Loc: [place] [address] Phys: Evin Castellanos MD Acct: [id number] Dis Date: Status: REG ER PHONE #: [phone] Exam Date: 02/23/20202047 FAX #: Reason: diffuse abdomen pain and distention EXAMS: CPT: [id number] CTABD PELVIS W/CONT 45119 <Continued> CT. No bowel wall thickening or [...] RT(R)(CT)(MRI) CTDI: DLP: Trnscb Date/Time: 02/23/2020 (2109) GarettJY25Toyc Print D/T: S: 02/23/2020 (2112) PAGE 2 Signed Report- XR CHEST 1 [id number] 21:03:00 Name: DORA JOSEPH [place] : 1970 Age/S: 50 / M [address] Unit #: [id number] Loc: [place] [address] Phys: Evin Castellanos MD Acct: [id number] Dis Date: Status: REG ERPHONE #: [phone] Exam Date: 02/23/20202055 FAX #: Reason: Code Sepsis EXAMS: CPT: [id number] XR CHEST 1 V 89557 Fluoro Time: DAP (Gy m2): Air Kerma [...] by: Monica Quijano MD CC: Susana Meza 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; Carl Luevano MD PAGE 1 Signed Report Name: DORA JOSEPH [facility] : 1970 Age/S: 50 / M [address] Unit #: [id number] Loc: [place] [address] Phys: Evin Castellanos MD Acct: [id number] Dis Date: Status: REG ER PHONE #: [phone] Exam Date: 02/23/20202055 FAX #: Reason: Code Sepsis EXAMS: CPT: [id number] XR CHEST 1 V 49955 Fluoro Time: DAP (Gy m2): Air Kerma (mGy): <Continued> Technologist: Rudy Zuniga RT(R)(CT)(MRI) Trnscb Date/Time: 02/23/2020 (2102) tCARLAW Orig Print D/T: S:02/23/2020 (2106) PAGE 2 Signed ReportBASIC METABOLIC PANEL [...] 8.5-10.1 N Completed by Nursing: NOHEPATIC FUNCTION [id number] 20:02:00 Test Item Value Reference Range Interpretation [...] N code = ALKP) Completed by Nursing: [id number] 20:02:00 Test Item Value Reference Range Interpretation Comments LIPASE (test code = LIP) 97 Unit/L 114-286 L Completed by Nursing: [id number]-[id number] 20:02:00 Test Item Value Reference Range Interpretation [...] brittani yby method. Completed by Nursing: NOLACTIC [id number] 19:59:00 Test Item Value Reference Range Interpretation Comments LACTIC ACID (test code = LACT) 1.2 mmol/L 0.4-2.0 N CBC W/AUTO [id number] 19:46:00 Test Item Value Reference Range Interpretation [...] CRITERIA = MDIFF) - XR ABDOMEN 2 [id number] 06:22:00 Name: DORA JOSEPH [place] : 1970 Age/S: 50 / M [address] Unit #: [id number] Loc: [place] [address] Phys: Leonidas Robertson MD Acct: [id number] Dis Date: Status: ADM INPHONE #: [phone] Exam Date: 02/19/2020 0440 FAX #: Reason: megacolon EXAMS: CPT: [id number] XR ABDOMEN 2 V 29431 Fluoro Time: DAP (Gy m2): Air Kerma [...] IMPRESSION: Marked dilation of colonic loops as wellas small bowel loops. No free intraperitoneal air. at 0622 Reported and signed by: David Rodríguez M.D. CC: Leonidas Robertson MD; Coco Nova MD PAGE 1 Signed Report Name: DORA JOSEPH [place] : 1970 Age/S: 50 / M [address] [address] Unit #: [id number] Loc: [place] [address] Phys: Leonidas Robertson MD Acct: [id number] Dis Date: Status: ADM IN PHONE #: [phone] Exam Date: 02/19/2020 0440 FAX #: Reason: megacolon EXAMS:CPT: [id number] XR ABDOMEN 2 V 12847 Fluoro Time: DAP (Gy m2): Air Kerma (mGy): <Continued> Technologist: Carrie Barnett, RT(R)(CT) Trnscb Date/Time: 02/19/2020 (06) [email or web address].AL7 Orig Print D/T: S: 02/19/2020 (0623) PAGE 2 Signed ReportBASIC METABOLIC [id number] 05:52:00 Test Item Value Reference Range Interpretation [...] CA) 8.5 MG/DL 8.5-10.1 N CBC W/AUTO [id number] 05:40:00 Test Item Value Reference Range Interpretation [...] NO DIFF/SCN CRITERIA = MDIFF) BASIC METABOLIC [id number] 06:52:00 Test Item Value Reference Range Interpretation [...] CA) 8.3 MG/DL 8.5-10.1 L CBC W/AUTO [id number] 06:39:00 Test Item Value Reference Range Interpretation [...] DIFF/SCN CRITERIA = MDIFF) Coronavirus 2018 nCoV [id number] 05:35:00 Test Item Value Reference Range Interpretation [...] NA (test code = 139 mmol/L 135-145 6879629862) K (test code = 4.3 mmol/L 3.5-5 4410105948) CL (test code = 105 mmol/L 98-108 7009870800) CO2 TOTAL (test code = 30 mmol/L 23-31 7980320435) AGAP (test code = 2-16 6217521183) BUN (test code = 6 mg/dL 7-23 L 1767746015) GLUCOSE (test code = 94 mg/dL 70-110 2129350016) CREATININE (test code = 1.07 mg/dL 0.6-1.25 0557331033) CALCIUM (test code = 9.3 mg/dL 8.6-10.6 7955357607) eGFR Calculation mL/min/1.73m2 (Non-) (test code = 5543337907) eGFR Calculation mL/min/1.73m2 () (test code = 0538684587) GILBERTO (test code = GILBERTO) Association of [...] tests). Lab Interpretation Abnormal (test code = 46006-3) [facility] 16:58:00 Test Item Value Reference Range Interpretation Comments MAGNESIUM (test code = 1993084403) 2.0 mg/dL 1.7-2.4 Lab Interpretation (test code = Normal 88566-4) [facility]XR [id number] 17:02:411. Interval worsening of air distended loops [...] with cecum measuring up to 15 cm. [facility] WITH [id number] 07:20:00 Test Item Value Reference Range Interpretation Comments WBC (test code = See_Comment L [Automated 0699-2) message] The sy stem which generated this result transmitted reference range : 4.20 - 10.70 10*3/?L. The reference range was not used to interpret this result as normal/abnormal . RBC (test code = See_Comment [Automated 409-8) message] The sy stem which generated this [...] RDW-SD (test code = 46.5 fL 38.5-51.6 18846-5) RDW-CV (test code = 13.9 % 12.1-15.4 788-0) PLT (test code = See_Comment L [Automated 537-3) message] The sy stem which generated this result transmitted reference range : 150 - 328 10*3/ ?L. The reference r meredith was not used to interpret this result as normal/abnormal . MPV (test code = 10.7 fL 9.8-13 43401-9) NRBC/100 WBC (test See_Comment [Automat ed code = 3625219986) message] The system which generated this result transmitted reference range : 0.0 - 10.0 /100 WBCs. The refer ence range was not u sed to interpret th is result as normal/abnormal . NRBC x10^3 (test code <0.01 See_Comment [Auto mated = 0291672740) message] The s ystem which generated this result transmitted reference range : 10*3/?L. The reference range was not used to interpret this result as normal/abnormal . GRAN MAT (NEUT) % 48.6 % (test code = 770-8) IMM GRAN % (test code 0.20 % = 1381606981) LYMPH % (test code = 39.6 % 736-9) MONO % (test code = 8.4 % 5905-5) EOS % (test code = 2.7 % 713-8) BASO % (test code = 0.5 % 706-2) GRAN MAT x10^3(ANC) 1.96 10*3/uL 1.99-6.95 L (test code = 9020534677) IMM GRAN x10^3 (test <0.03 0-0.06 code = 0497178807) LYMPH x10^3 (test code 1.60 10*3/uL 1.09-3.23 = 731-0) MONO x10^3 (test code 0.34 10*3/uL 0.36-1.02 L = 742-7) EOS x10^3 (test code = 0.11 10*3/uL 0.06-0.53 711-2) BASO x10^3 (test code <0.03 0.01-0.09 = 704-7) Lab Interpretation Abnormal (test code = 97972-0) [facility] METABOLIC PANEL (NA, K, CL, CO2, GLUCOSE, BUN, CREATININE, CA)2020-01-31 06:32:00 Test Item Value Reference Range Interpretation Comments NA (test code = 138 mmol/L 135-145 7757318886) K (test code = 4.2 mmol/L 3.5-5 Slight 6796414776) hemolysis CL (test code = 108 mmol/L 98-108 3405363449) CO2 TOTAL (test code 22 mmol/L 23-31 L = 3816406546) AGAP (test code = 2-16 7472110091) BUN (test code = 7 mg/dL 7-23 Slight 5494429445) hemolysis GLUCOSE (test code = 92 mg/dL 70-110 5971531998) CREATININE (test code 1.02 mg/dL 0.6-1.25 = 1488355317) CALCIUM (test code = 8.9 mg/dL 8.6-10.6 2396452240) eGFR Calculation mL/min/1.73m2 (Non-) (test code = 0366019964) eGFR Calculation mL/min/1.73m2 () (test code = 1691123282) GILBERTO (test code = GILBERTO) Association of [...] tests). Lab Interpretation Abnormal (test code = 08291-7) [facility] WITH [id number] 11:00:00 Test Item Value Reference Range Interpretation [...] RDW-SD (test code = 48.7 fL 38.5-51.6 62021-3) RDW-CV (test code = 14.4 % 12.1-15.4 788-0) PLT (test code = See_Comment L [Automated 777-3) message] The sy stem which generated this result transmitted reference range : 150 - 328 10*3/ ?L. The reference r meredith was not used to interpret this result as normal/abnormal . MPV (test code = 10.7 fL 9.8-13 94686-2) IPF % (test code = 5.1 % 1.2-10.7 Platelet count 4836919554) measured by fluorescence method. NRBC/100 WBC (test See_Comment [Automat ed code = 1192649131) message] The system which generated this result transmitted reference range : 0.0 - 10.0 /100 WBCs. The refer ence range was not u sed to interpret th is result as normal/abnormal . NRBC x10^3 (test code <0.01 See_Comment [Auto mated = 4494736851) message] The s ystem which generated this result transmitted reference range : 10*3/?L. The reference range was not used to interpret this result as normal/abnormal . SEG % (test code = 53 % 33-76 00082-2) BAND % (test code = 1 % 0-1 31083-5) LYMPH % (test code = 39 % 14-54 69071-4) MONO % (test code = 4 % 0-4 62347-8) EOS % (test code = 3 % 0-3 02742-4) ANC (test code = 1.93 10*3/uL 1.99-6.95 L 6119280045) Lab Interpretation Abnormal (test code = 47847-1) [facility] Metabolic Panel (NA, K, CL, CO2, GLUCOSE, BUN, CREATININE, CA)2020-01-29 10:23:00 Test Item Value Reference Range Interpretation Comments NA (test code = 138 mmol/L 135-145 1921478902) K (test code = 4.0 mmol/L 3.5-5 0832371959) CL (test code = 109 mmol/L 98-108 H 6699069457) CO2 TOTAL (test code = 27 mmol/L 23-31 7310972583) AGAP (test code = 2-16 7983321542) BUN (test code = 16 mg/dL 7-23 9288697720) GLUCOSE (test code = 81 mg/dL 70-110 1868257893) CREATININE (test code = 1.14 mg/dL 0.6-1.25 8209542591) CALCIUM (test code = 8.6 mg/dL 8.6-10.6 9057791544) eGFR Calculation mL/min/1.73m2 (Non-) (test code = 1194064255) eGFR Calculation mL/min/1.73m2 () (test code = 6584040740) GILBERTO (test code = GILBERTO) Association of [...] tests). Lab Interpretation Abnormal (test code = 74115-1) [facility] HospitalCORONAVIRUS COVID-19 [id number] 04:27:00 Test Item Value Reference Range Interpretation Comments SARS-CoV-2 Rapid ID NOW Not Detected Not Detected (test code = 56147-3) GILBERTO (test code = GILBERTO) ID NOW COVID-19 Assay is an isothermal nucleic acid amplification test intended for the qualitative detection of nucleic acid from SARS-CoV-2 viral RNA in nasopharyngeal (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) specimens. It is used under Emergency Use [...] indicated. Lab Interpretation Normal (test code = 37269-8) [facility] HospitalLactic Acid Whole [id number] 04:10:00 Test Item Value Reference Range Interpretation Comments LACTIC ACID (test code = 1.74 mmol/L 0.5-2.2 8011391927) [facility] HospitalCOVID-19 (ID NOW RAPID TESTING)2020-01-29 02:17:00 Test Item Value Reference Range Interpretation Comments SARS-CoV-2 Rapid ID NOW Not Detected Not Detected (test code = 68539-6) GILBERTO (test code = GILBERTO) ID NOW COVID-19 Assay is an isothermal nucleic acid amplification test intended for the qualitative detection of nucleic acid from SARS-CoV-2 viral RNA in nasopharyngeal (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) specimens. It is used under Emergency Use [...] indicated. Lab Interpretation Normal (test code = 95599-2) [facility] HospitalUrinalysis2020-06-07 02:14:00 Test Item Value Reference Range Interpretation Comments APPEARANCE (test code = Clear Clear 5372304683) COLOR (test code = Dark Yellow Yellow A 3951747410) PH (test code = 4.8-8.0 4749491153) SP GRAVITY (test code = 1.003-1.030 H 8456996673) GLU U QUAL (test code = Normal Normal 0953535493) BLOOD (test code = 1+ Negative A 6068099302) KETONES (test code = 5 mg/dL Negative A 0858863332) PROTEIN (test code = Negative Negative 2887-8) UROBILIN (test code = Normal Normal 0085110482) BILIRUBIN (test code = Negative Negative 2629914790) NITRITE (test code = Negative Negative 5511759387) LEUK ROGER (test code = Negative Negative 8029097124) RBC/HPF (test code = See_Comment H [Autom ated 0035933909) message] The sy stem which generated this result transmitted reference range : 0 - 3 HPF. The reference range was not used to interpret this result as normal/abnormal . WBC/HPF (test code = See_Comment [Autom ated 4209461907) message] The sy stem which generated this result transmitted reference range : 0 - 5 HPF. The reference range was not used to interpret this result as normal/abnormal . BACTERIA (test code = Moderate Negative A 6600924122) MUCOUS (test code = Slight Negative LPF A 8342555763) AMORPHOUS (test code = Rare Rare HPF 2449116790) SQ EPITH (test code = <1 See_Comment [Auto mated 3487321930) message] The sy stem which generated this result transmitted reference range : <=2 HPF. The reference range was not used to interpret this result as normal/abnormal . CA OXALATE (test code = See_Comment H [Au tomated 1638440751) message] The sy stem which generated this result transmitted reference range : <=1 HPF. The reference range was not used to interpret this result as normal/abnormal . HYAL CAST (test code = See_Comment H [Aut omated 2136129106) message] The sy stem which generated this result transmitted reference range : <=2 LPF. The reference range was not used to interpret this result as normal/abnormal . ASCORBIC ACID (test Negative code = 2821646637) Lab Interpretation Abnormal (test code = 56127-6) [facility] HospitalCT ABDOMEN PELVIS W [id number] 00:25:08Persistent marked and severe dilatation of the [...] is essentially stable compared to prior examination. [facility] (NA, K, CL, CO2, GLUCOSE, BUN, CREATININE, CA)2020-01-28 23:38:00 Test Item Value Reference Range Interpretation Comments NA (test code = 143 mmol/L 135-145 7194024445) K (test code = 4.2 mmol/L 3.5-5 4502960118) CL (test code = 111 mmol/L 98-108 H 7936500591) CO2 TOTAL (test code = 28 mmol/L 23-31 9504727619) AGAP (test code = 2-16 1761426604) BUN (test code = 15 mg/dL 7- 7823468085) GLUCOSE (test code = 68 mg/dL 70-110 L 0934801750) CREATININE (test code = 1.32 mg/dL 0.6-1.25 H 9804439215) CALCIUM (test code = 9.0 mg/dL 8.6-10.6 7802500071) eGFR Calculation mL/min/1.73m2 (Non-) (test code = 4332633192) eGFR Calculation mL/min/1.73m2 () (test code = 4265602626) GILBERTO (test code = GILBERTO) Association of [...] tests). Lab Interpretation Abnormal (test code = 33924-0) [facility] HospitalHepatic Function Panel (ALB, T.PRO, BILI T, BU/BC, ALT, AST, ALK PHOS)2020-01-28 23:38:00 Test Item Value Reference Range Interpretation Comments TOTAL BILI (test code = 3533449672) 0.6 mg/dL 0.1-1.1 BILI UNCON (test code = 8878530836) 0.6 mg/dL 0.1-1.1 BILI CONJ (test code = 3029462985) 0.0 mg/dL 0-0.3 T PROTEIN (test code = 0784442155) 5.7 g/dL 6.3-8.2 L ALBUMIN (test code = 4394937027) 3.8 g/dL 3.5-5 ALK PHOS (test code = 6473104209) 37 U/L 34-122 ALTv (test code = 1742-6) 23 U/L 5-50 AST(SGOT) (test code = 7930692058) 25 U/L 13-40 Lab Interpretation (test code = Abnormal 95026-5) [facility] HospitalLipase [id number] 23:38:00 Test Item Value Reference Range Interpretation Comments LIPASE (test code = 3302114930) 62 U/L 0-220 Lab Interpretation (test code = Normal 07613-1) [facility] HospitalCB WITH [id number] 23:29:00 Test Item Value Reference Range Interpretation Comments WBC (test code = See_Comment [Automated 2690-2) message] The sy stem which generated this result transmitted reference range : 4.20 - 10.70 10*3/?L. The reference range was not used to interpret this result as normal/abnormal . RBC (test code = See_Comment L [Automated 878-8) message] The sy stem which generated this [...] RDW-SD (test code = 47.5 fL 38.5-51.6 98847-3) RDW-CV (test code = 14.3 % 12.1-15.4 788-0) PLT (test code = See_Comment [Automated 777-3) message] The sy stem which generated this result transmitted reference range : 150 - 328 10*3/ ?L. The reference r meredith was not used to interpret this result as normal/abnormal . MPV (test code = 10.6 fL 9.8-13 12199-4) NRBC/100 WBC (test See_Comment [Automat ed code = 7699330182) message] The system which generated this result transmitted reference range : 0.0 - 10.0 /100 WBCs. The refer ence range was not u sed to interpret th is result as normal/abnormal . NRBC x10^3 (test code <0.01 See_Comment [Auto mated = 3979972632) message] The s ystem which generated this result transmitted reference range : 10*3/?L. The reference range was not used to interpret this result as normal/abnormal . GRAN MAT (NEUT) % 50.1 % (test code = 770-8) IMM GRAN % (test code 0.20 % = 8641806836) LYMPH % (test code = 34.7 % 736-9) MONO % (test code = 12.5 % 5905-5) EOS % (test code = 1.8 % 713-8) BASO % (test code = 0.7 % 706-2) GRAN MAT x10^3(ANC) 2.28 10*3/uL 1.99-6.95 (test code = 0065059741) IMM GRAN x10^3 (test <0.03 0-0.06 code = 9654193730) LYMPH x10^3 (test code 1.58 10*3/uL 1.09-3.23 = 731-0) MONO x10^3 (test code 0.57 10*3/uL 0.36-1.02 = 742-7) EOS x10^3 (test code = 0.08 10*3/uL 0.06-0.53 711-2) BASO x10^3 (test code 0.03 10*3/uL 0.01-0.09 = 704-7) Lab Interpretation Abnormal (test code = 17948-6) [facility]OL[facility] (NA, K, CL, CO2, GLUCOSE, BUN, CREATININE, CA)2020-01-26 18:34:00 Test Item Value Reference Range Interpretation Comments NA (test code = 138 mmol/L 135-145 5964034947) K (test code = 3.7 mmol/L 3.5-5 4799988256) CL (test code = 108 mmol/L 98-108 5669621266) CO2 TOTAL (test code = 25 mmol/L 23-31 3958432251) AGAP (test code = 2-16 9379338691) BUN (test code = 9 mg/dL 7-23 6978156098) GLUCOSE (test code = 107 mg/dL 70-110 2117885654) CREATININE (test code 0.96 mg/dL 0.6-1.25 = 2329180643) CALCIUM (test code = 8.7 mg/dL 8.6-10.6 3420435489) eGFR Calculation mL/min/1.73m2 (Non-) (test code = 2921071489) eGFR Calculation mL/min/1.73m2 () (test code = 1038641698) GILBERTO (test code = GILBERTO) Association of [...] or urine or abnormalities in imaging tests). [facility] HospitalMagnesium Napac7539-02-19 08:33:00 Test Item Value Reference Range Interpretation Comments MAGNESIUM (test code = 1.9 mg/dL 1.7-2.4 Sligh t hemolysis 3756121580) Lab Interpretation (test Normal code = 84848-7) [facility] HospitalXR [id number] 06:18:53 Redemonstration of marked gaseous distention of the transverse anddescending colon. RL: 460 AFC: [id number] Ordering physician: HELENE GRIFFIN INDICATION: Abdominal pain [...] distention of the transverse anddescending colon.RL: 460AFC: [id number] signed by Angeli Carrillo MD, PhD at 01/26/2020 1:18 [facility] Phosphorus Tztws2243-28-29 10:11:00 Test Item Value Reference Range Interpretation Comments PHOSPHORUS (test code = 3512083656) 3.9 mg/dL 2.5-5 Lab Interpretation (test code = Normal 02523-0) [facility] HospitalCOVID-19 (ID NOW RAPID TESTING)2020-01-25 05:12:00 Test Item Value Reference Range Interpretation Comments SARS-CoV-2 Rapid ID NOW Not Detected Not Detected (test code = 72222-4) GILBERTO (test code = GILBERTO) ID NOW COVID-19 Assay is an isothermal nucleic acid amplification test intended for the qualitative detection of nucleic acid from SARS-CoV-2 viral RNA in nasopharyngeal (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) specimens. It is used under Emergency Use [...] indicated. Lab Interpretation Normal (test code = 59956-4) [facility] HospitalLactic Acid Whole [id number] 04:34:00 Test Item Value Reference Range Interpretation Comments LACTIC ACID (test code = 0.89 mmol/L 0.5-2.2 7875284112) [facility] HospitalCT ABDOMEN PELVIS W [id number] 02:47:02Impression: Marked distention and dilatation of the [...] bowel as well. Rectal tubedecompression may be considered.[facility] HospitalUrinalysis2020-06-03 01:51:00 Test Item Value Reference Range Interpretation Comments APPEARANCE (test code = Hazy Clear A 5334156463) COLOR (test code = Yellow Yellow 3092481331) PH (test code = 4.8-8.0 7418114240) SP GRAVITY (test code = 1.003-1.030 2697268639) GLU U QUAL (test code = Normal Normal 5268699686) BLOOD (test code = Negative Negative 0702932567) KETONES (test code = Negative Negative 2752620671) PROTEIN (test code = Negative Negative 2887-8) UROBILIN (test code = Normal Normal 4875078571) BILIRUBIN (test code = Negative Negative 2182389288) NITRITE (test code = Negative Negative 1663761861) LEUK ROGER (test code = Negative Negative 0799667620) RBC/HPF (test code = See_Comment H [Autom ated message] 5023977953) The system [employer] generated this result transmitted ref erence range: 0 - 3 HP F. The reference range was not used to int erpret this result as normal/abnormal . WBC/HPF (test code = See_Comment [Autom ated message] 8421125494) The system [employer] generated this result transmitted ref erence range: 0 - 5 HP F. The reference range was not used to int erpret this result as normal/abnormal . BACTERIA (test code = Negative Negative 4164230037) SQ EPITH (test code = <1 See_Comment [Auto mated message] 0807331262) The system [employer] generated this result transmitted ref erence range: <=2 HPF. The reference range was not used to int erpret this result as normal/abnormal . CA OXALATE (test code = See_Comment H [Au tomated message] 7325013779) The system [employer] generated this result transmitted ref erence range: <=1 HPF. The reference range was not used to int erpret this result as normal/abnormal . Lab Interpretation (test Abnormal code = 59523-5) [facility] Metabolic Panel (NA, K, CL, CO2, GLUCOSE, BUN, CREATININE, CA)2020-01-25 01:01:00 Test Item Value Reference Range Interpretation Comments NA (test code = 139 mmol/L 135-145 4419386177) K (test code = 4.6 mmol/L 3.5-5 Slight hemoly sis 7760466920) CL (test code = 107 mmol/L 98-108 2936140785) CO2 TOTAL (test 26 mmol/L 23-31 code = 8922634212) AGAP (test code = 2-16 3705219843) BUN (test code = 23 mg/dL 7-23 Slight hemo lysis 0992498101) GLUCOSE (test code 94 mg/dL 70-110 = 7820589881) CREATININE (test 1.13 mg/dL 0.6-1.25 code = 3791090277) CALCIUM (test code 8.9 mg/dL 8.6-10.6 = 8866555701) eGFR Calculation mL/min/1.73m2 (Non-) (test code = 3264684507) eGFR Calculation mL/min/1.73m2 () (test code = 8193973488) GILBERTO (test code = Association of GILBERTO) [...] or urine or abnormalities in imaging tests). [facility] HospitalHepatic Function Panel (ALB, T.PRO, BILI T, BU/BC, ALT, AST, ALK PHOS)2020-01-25 01:01:00 Test Item Value Reference Range Interpretation Comments TOTAL BILI (test code = 0738249692) 0.7 mg/dL 0.1-1.1 BILI UNCON (test code = 7283213922) 0.6 mg/dL 0.1-1.1 BILI CONJ (test code = 8883223648) 0.0 mg/dL 0-0.3 T PROTEIN (test code = 9729349578) 6.2 g/dL 6.3-8.2 L ALBUMIN (test code = 9016508741) 4.1 g/dL 3.5-5 ALK PHOS (test code = 5857558867) 46 U/L 34-122 ALTv (test code = 1742-6) 27 U/L 5-50 AST(SGOT) (test code = 9504060418) 31 U/L 13-40 Lab Interpretation (test code = Abnormal 58691-0) [facility] HospitalLipase [id number] 01:01:00 Test Item Value Reference Range Interpretation Comments LIPASE (test code = 0086000663) 246 U/L 0-220 H Lab Interpretation (test code = Abnormal 92184-9) [facility] HospitalCBC WITH [id number] 00:49:00 Test Item Value Reference Range Interpretation Comments WBC (test code = See_Comment [Automated 1890-2) message] The sy stem which generated this [...] RDW-SD (test code = 46.8 fL 38.5-51.6 61245-1) RDW-CV (test code = 14.2 % 12.1-15.4 788-0) PLT (test code = See_Comment [Automated 777-3) message] The sy stem which generated this result transmitted reference range : 150 - 328 10*3/ ?L. The reference r meredith was not used to interpret this result as normal/abnormal . MPV (test code = 10.7 fL 9.8-13 53921-2) NRBC/100 WBC (test See_Comment [Automat ed code = 6948523142) message] The system which generated this result transmitted reference range : 0.0 - 10.0 /100 WBCs. The refer ence range was not u sed to interpret th is result as normal/abnormal . NRBC x10^3 (test code <0.01 See_Comment [Auto mated = 2414910072) message] The s ystem which generated this result transmitted reference range : 10*3/?L. The reference range was not used to interpret this result as normal/abnormal . GRAN MAT (NEUT) % 56.9 % (test code = 770-8) IMM GRAN % (test code 0.20 % = 3061035076) LYMPH % (test code = 31.2 % 736-9) MONO % (test code = 9.7 % 5905-5) EOS % (test code = 1.6 % 713-8) BASO % (test code = 0.4 % 706-2) GRAN MAT x10^3(ANC) 2.86 10*3/uL 1.99-6.95 (test code = 1610961385) IMM GRAN x10^3 (test <0.03 0-0.06 code = 2040286187) LYMPH x10^3 (test code 1.57 10*3/uL 1.09-3.23 = 731-0) MONO x10^3 (test code 0.49 10*3/uL 0.36-1.02 = 742-7) EOS x10^3 (test code = 0.08 10*3/uL 0.06-0.53 711-2) BASO x10^3 (test code <0.03 0.01-0.09 = 704-7) Lab Interpretation Abnormal (test code = 81942-4) [facility] ABDOMEN 1 [id number] 07:32:00 Name: DORA JOSEPH [facility] : 1970 Age/S: 49 / M [address] Unit #: [id number] Loc: [place] [address] Phys: Jay Mayo MD Acct: [id number] Dis Date: Status: ADM IN PHONE #: [phone] Exam Date: 01/10/2020 0658 FAX #: Reason: follow up colonic ileus EXAMS: CPT: [id number] XR ABDOMEN 1 V 34795 Fluoro Time: DAP (Gy m2): Air Kerma [...] Signed Report Name: DORA JOSEPH [facility] : 1970Age/S: 49 / M [address] Unit #: [id number] Loc: [place] [address] Phys: Jay Mayo MD Acct: [id number] Dis Date: Status: ADM IN PHONE #: [phone] Exam Date: 01/10/2020 0658 FAX #: Reason: follow up colonic ileus EXAMS: CPT: [id number] XR ABDOMEN 1 V 17706 Fluoro Time: DAP (Gy m2): Air Kerma (mGy): <Continued> Technologist: Bakari De Leon RT(R)(CT) Trnscb Date/Time: 01/10/2020 (0732) [email or web address] Orig Print D/T: S: 01/10/2020 (0736) PAGE 2 Signed Report COMPREHENSIVE METABOLIC [id number] 05:56:00 Test Item Value Reference Range Interpretation [...] TOTAL (test code = ALKP) CBC W/AUTO [id number] 05:42:00 Test Item Value Reference Range Interpretation [...] = NO DIFF/SCN CRITERIA MDIFF) BASIC METABOLIC [id number] 06:59:00 Test Item Value Reference Range Interpretation [...] code = CA) 8.5 MG/DL 8.5-10.1 N [id number] 06:59:00 Test Item Value Reference Range Interpretation Comments MAGNESIUM (test code = MAG) 2.2 MG/DL 1.8-2.4 PROTHROMBIN [id number] 06:39:00 Test Item Value Reference Range Interpretation Comments PT PATIENT (test code = PTP) 13.1 SECONDS 9.3-12.9 H INTERNATIONAL NORMAL RATIO 1.16 INR Unit 0.8-1.2 N (test code = INR) CBC W/AUTO [id number] 06:22:00 Test Item Value Reference Range Interpretation [...] DIFF/SCN CRITERIA MDIFF) - XR ABDOMEN 1 [id number] 05:39:00 Name: DORA JOSEPH [place] : 1970 Age/S: 49 / M [address] Unit #: [id number] Loc: [place] [address] 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 Acct: [id number] Dis Date: Status: ADM IN PHONE#: [phone] Exam Date: 01/09/2020522 FAX #: Reason: colonic ileus/obstruction EXAMS: CPT: [id number] XR ABDOMEN 1 V 84952 Fluoro Time: DAP (Gy m2): Air Kerma [...] Perea MD PAGE 1 Signed Report Name: ADINA JOSEPH [place] : 1970 Age/S: 49 / M [address] Unit #: [id number] Loc: [place] [address] 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 Acct: [id number] Dis Date: Status: ADM IN PHONE #: [phone] Exam Date: 01/09/2020522 FAX #: Reason: colonic ileus/obstruction EXAMS: CPT: [id number] XR ABDOMEN 1 [id number] Fluoro Time: DAP (Gy m2): Air Kerma (mGy): <Continued> Technologist: Carrie Barnett, RT(R)(CT) Trnscb Date/Time: 01/09/2020 (0539) [email or web address] Orig Print D/T: S: 01/09/2020 (0542) PAGE 2 Signed ReportCoronavirus 2019 nCoV [id number] 22:38:00 Test Item Value Reference Range Interpretation Comments Coronavirus 2019 nCoV Bedside (test Negative Negative code = [id number]) Emergent procedure? YESCoronavirus 2019 nCoV Ufkhzcx2007-23-92 22:38:00 Test Item Value Reference Range Interpretation Comments Coronavirus 2019 nCoV Bedside (test Negative Negative code = [id number]) Emergent procedure? YESBASIC METABOLIC [id number] 18:42:00 Test Item Value Reference Range Interpretation [...] CA) 8.5 MG/DL 8.5-10.1 N CBC W/AUTO [id number] 10:50:00 Test Item Value Reference Range Interpretation [...] = NO DIFF/SCN CRITERIA MDIFF) COMPREHENSIVE METABOLIC [id number] 10:46:00 Test Item Value Reference Range Interpretation [...] 50-136 N TOTAL (test code = ALKP) [id number] 10:46:00 Test Item Value Reference Range Interpretation Comments MAGNESIUM (test code = MAG) 2.6 MG/DL 1.8-2.4 H COMPREHENSIVE METABOLIC [id number] 10:34:00 Test Item Value Reference Range Interpretation [...] TOTAL (test Unit/L 50-136 code = ALKP) [id number] 10:34:00 Test Item Value Reference Range Interpretation Comments MAGNESIUM (test code = MAG) MG/DL 1.8-2.4 - XR ABDOMEN 1 [id number] 08:28:00 Name: DORA JOSEPH [place] : 1970 Age/S: 49 / M [address] Unit #: [id number] Loc: [place] [address] Phys: Yas Edwards MD Acct: [id number] Dis Date: Status: ADM IN PHONE #: [phone] Exam Date: 01/08/2020 0510 FAX #: Reason: ileus EXAMS: CPT: [id number] XR ABDOMEN 1V 90149 Fluoro Time: DAP (Gy m2): Air Kerma [...] PAGE 1 Signed Report Name: DORA JOSEPH [place] : 1970 Age/S: 49 / M [address] Unit #: [id number] Loc: [place] [address] Phys: Yas Edwards MD Acct: [id number] Dis Date: Status: ADM IN PHONE #: [phone] Exam Date: 01/08/2020 0510 FAX #: Reason: ileus EXAMS: CPT: [id number] XR ABDOMEN 1 V 04259 Fluoro Time: DAP (Gy m2): Air Kerma (mGy): <Continued> Technologist: Carrie Barnett, RT(R)(CT); ... Trnscb Date/Time: 01/08/2020 (0828) Candido.FABIANO Orig Print D/T: S: 01/08/2020 (1260) PAGE 2 Signed ReportCOMPREHENSIVE METABOLIC [id number] 07:08:00 Test Item Value Reference Range Interpretation [...] 50-136 L TOTAL (test code = ALKP) [id number] 07:08:00 Test Item Value Reference Range Interpretation Comments MAGNESIUM (test code = MAG) 1.3 MG/DL 1.8-2.4 L COMPREHENSIVE METABOLIC [id number] 05:16:00 Test Item Value Reference Range Interpretation [...] 50-136 L TOTAL (test code = ALKP) [id number] 05:16:00 Test Item Value Reference Range Interpretation Comments MAGNESIUM (test code = MAG) 1.3 MG/DL 1.8-2.4 L CBC W/AUTO [id number] 05:02:00 Test Item Value Reference Range Interpretation [...] (test code = NO DIFF/SCN CRITERIA MDIFF) [id number] 16:51:00 Test Item Value Reference Range Interpretation Comments MAGNESIUM (test code = MAG) 2.3 MG/DL 1.8-2.4 N FE W/TOTAL IRON BINDING CAP.2020-01-07 16:51:00 Test Item Value Reference Range Interpretation Comments SERUM IRON (test code = IRON) 38 mcG/DL 65-175 L TOTAL IRON BINDING CAPACITY (test 322 mcG/DL 250-450 N code = TIBC) IRON SATURATION (test code = 12 % calc 12-57 N FESAT) [id number] 16:51:00 Test Item Value Reference Range Interpretation Comments FERRITIN (test code = DAVID) 17.6 NG/ML 5.0-323.0 N CALCIUM [id number] 16:50:00 Test Item Value Reference Range Interpretation Comments CALCIUM IONIZED (test code = NAVEED) 1.12 mmol/L 1.12-1.32 N - XR ABDOMEN 1 [id number] 10:29:00 Name: DORA JOSEPH [place] : 1970 Age/S: 49 / M [address] Unit #: [id number] Loc: [place] [address] Phys: Verona Frost PA-C Acct: [id number] Dis Date: Status: ADM IN PHONE #: [phone] Exam Date: 01/07/2020 0712 FAX #: Reason: reassess SBO EXAMS: CPT: [id number] XR ABDOMEN 1 V 33024 Fluoro Time: DAP (Gy m2): Air Kerma [...] PAGE 1 Signed Report Name: DORA JOSEPH [place] : 1970 Age/S: 49 / M [address] Unit #: [id number] Loc: [place] [address] Phys: Verona Frost PA-C Acct: [id number] Dis Date: Status: ADM IN PHONE #: [phone] Exam Date: 01/07/2020 0712 FAX #: Reason: reassess SBO EXAMS: CPT: [id number] XR ABDOMEN 1 V 44820 Fluoro Time: DAP (Gy m2): Air Kerma (mGy): <Continued> Technologist: Bakari De Leon RT(R)(CT) Trnscb Date/Time: 01/07/2020 (1029) tUMBERTO Orig Print D/T: S: 01/07/2020 (1032) PAGE 2 Signed ReportBASIC METABOLIC PANEL 2020-01-07 [...] CA) 5.4 MG/DL 8.5-10.1 LL CBC W/AUTO [id number] 06:49:00 Test Item Value Reference Range Interpretation [...] = NO DIFF/SCN CRITERIA MDIFF) COMPREHENSIVE METABOLIC [id number] 06:10:00 Test Item Value Reference Range Interpretation [...] TOTAL (test code = ALKP) CBC W/AUTO [id number] 05:52:00 Test Item Value Reference Range Interpretation [...] DIFF/SCN CRITERIA MDIFF) - XR ABDOMEN 1 [id number] 01:30:00 Name: DORA JOSEPH [place] : 1970 Age/S: 49 / M [address] Unit #: [id number] Loc: [place] [address] Phys: Ted Coleman NP Acct: [id number] Dis Date: Status: ADM IN PHONE #: [phone] Exam Date: 01/06/2020 0100 FAX #: Reason: NG Tube Placement Verification EXAMS: CPT: [id number] XR ABDOMEN 1 V 27127 Fluoro Time: DAP (Gy m2): Air Kerma [...] PAGE 1 Signed Report Name: DORA JOSEPH [place] : 1970 Age/S: 49 / M [address] [facility] Unit #: [id number] Loc: [place] [address] Phys: Ted Coleman 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 Acct: [id number] Dis Date: Status: ADM IN PHONE #: [phone] Exam Date: 01/06/2020 0100 FAX #: Reason:NG Tube Placement Verification EXAMS: CPT: [id number] XR ABDOMEN 1 V 80141 Fluoro Time: DAP (Gy m2):Air Kerma (mGy): <Continued> Technologist: Amberly Borrero RT(R) Trnscb Date/Time: 01/06/2020 (129) Candido.FC Orig Print D/T: S: 01/06/2020 (132) PAGE 2 Signed Report- CT ABD PELVIS W/O [id number] 19:42:00 [place]: St: REG -- Name: DORA JOSEPH [facility] : 1970 Age/S: 49/M [address] [facility] Unit: [id number] Loc: [place], [place]: [place] [address] Acct: [id number] Dis Date:Status: REG ER PHONE #: [phone] Exam Date: 12/13/20191924 FAX #: [phone] Reason: pain EXAMS: CPT CODE: [id number] CT ABD PELVIS W/O CONT 81286 Examination: CT scan abdomen and pelvis withoutcontrast. Location code: H 60. TECHNIQUE: Multiple axial images of the abdomen and pelvis were obtained without intravenous administration of contrast with sagittal and coronal reconstructions. CT examwas performed using automated dose reduction. COMPARISON: 02/28/2013. Discussion: Clinical history issignificant for abdominal pain. No radiopaque renal calculi [...] definite obstructive lesion is identified given the sta bility of this finding is likely as a chronic finding. 2. Otherwise unremarkable unenhanced CT scan of abdomen and pelvis. at 194 Reported and signed by: SHANEL EDWARDS CC: Technologist: SUJATA ALMANZAR Trnscrd Dt/Tm: 12/13/2019 (1941) GarettVR5 Orig Print D/T: S: 12/13/2019 (5 PAGE 1 Signed ReportBASIC METABOLIC [id number] 18:49:00 Test Item Value Reference Range Interpretation [...] code = CA) 8.6 mg/dl 8.0-10.5 N [id number] 18:49:00 Test Item Value Reference Range Interpretation Comments LIPASE (test code = LIP) 97 Units/L 65.0-230.0 N CBC W/AUTO [id number] 18:38:00 Test Item Value Reference Range Interpretation [...] K/mm3 0.0-0.2 N - XR CHEST 1 [id number] 18:36:00 [place]: SEAN St: PRE -- Name: DORA JOSEPH [facility] : 1970 Age/S: 49/M [address] [place] [address] [employer] Unit #: [id number] Loc: [place], [place] Phys: [place] [address] Acct: [id number] Dis Date: Status: PRE ER PHONE #: [phone] Exam Date: 12/13/20191821 FAX #: [phone] Reason: SOB EXAMS: CPT CODE: [id number] XR CHEST 1 V 82282 Examination: One view chest x-ray Location code: [...] by: SHANEL EDWARDS CC: Technologist: AMBER GENTILE Trnrird Date/Time/By: 12/13/2019 (1835) : By: GarettVR5 PAGE 1 Signed Report [place]: St: PRE ----- Name: DORA JOSEPH [facility] : 1970 Age/S: 49/M [address] [place] [address] [employer] Unit #: [id number] Loc: [place], [place]: [place] [address] Acct: [id number] Dis Date: Status: PRE ER PHONE #: [phone] Exam Date: 12/13/20191821 FAX #: [phone] Reason: SOB EXAMS: CPT CODE: [id number] XR CHEST 1 V 20546 (Continued) Orig Print D/T: S: 12/13/2019 (183) PAGE 2 Signed ReportCBC W/PLT COUNT & AUTO [id number] 08:02:00 Test Item Value Reference Range Interpretation [...] Received comment: User comments: Slide comments:BASIC METABOLIC [id number] 07:34:00 Test Item Value Reference Range Interpretation [...] S NOT APPLICABLE FOR DIALYSIS PATIEN TS. [id number] 07:26:00 Test Item Value Reference Range Interpretation Comments PHOSPHORUS (BEAKER) (test code = 3.1 mg/dL 2.3-4.7 604) [id number] 07:26:00 Test Item Value Reference Range Interpretation Comments MAGNESIUM (BEAKER) (test code = 1.6 mg/dL 1.6-2.6 627) RAD, ABDOMEN/KUB, 1 VIEW [id number] 07:04:00Reason for exam:->ileusFINAL REPORT Abdomen , one [...] MDReport Verified Date/Time: 04/03/2019 07:04:46 Reading Location: [facility] C013X Ortho Consult Reading Room BASIC METABOLIC [id number] 06:47:00 Test Item Value Reference Range Interpretation [...] code = 413) URINALYSIS WITH MICROSCOPIC IF [id number] 22:01:00 Test Item Value Reference Range Interpretation [...] 463) SOURCE(BEAKER) (test code = 2795) URINALYSIS [id number] 22:01:00 Test Item Value Reference Range Interpretation Comments RBC UA (BEAKER) (test code = 519) 18 /HPF WBC UA (BEAKER) (test code = 520) 1 /HPF CALCIUM OXALATE CRYSTALS (BEAKER) Occasional (test code = 518) [id number] 05:49:00 Test Item Value Reference Range Interpretation Comments PHOSPHORUS (BEAKER) (test code = 2.5 mg/dL 2.3-4.7 604) [id number] 05:49:00 Test Item Value Reference Range Interpretation Comments MAGNESIUM (BEAKER) (test code = 1.7 mg/dL 1.6-2.6 627) BASIC METABOLIC [id number] 05:49:00 Test Item Value Reference Range Interpretation [...] (BEAKER) (test code = 413) BASIC METABOLIC [id number] 06:19:00 Test Item Value Reference Range Interpretation [...] S NOT APPLICABLE FOR DIALYSIS PATIEN TS. [id number] 06:10:00 Test Item Value Reference Range Interpretation Comments MAGNESIUM (BEAKER) 1.8 mg/dL 1.6-2.6 Specimen slightly (test code = 627) hemolyzed [id number] 06:10:00 Test Item Value Reference Range Interpretation [...] (BEAKER) (test code = 413) BASIC METABOLIC [id number] 04:57:00 Test Item Value Reference Range Interpretation [...] S NOT APPLICABLE FOR DIALYSIS PATIEN TS. [id number] 04:55:00 Test Item Value Reference Range Interpretation Comments PHOSPHORUS (BEAKER) (test code = 2.6 mg/dL 2.3-4.7 604) [id number] 04:55:00 Test Item Value Reference Range Interpretation Comments MAGNESIUM (BEAKER) (test code = 1.8 mg/dL 1.6-2.6 627) CT, [id number] 14:16:00FINAL REPORT TECHNIQUE: CT of the abdomen [...] Pope MDReport Verified Date/Time: 03/29/2019 14:16:01Reading Location: [address] Body Reading Room , ABDOMEN/KUB, 1 VIEW [id number] 10:23:00Reason for exam:->evaluate ileusFINAL REPORT Technique: Supine [...] MDReport Verified Date/Time: 03/29/2019 10:23:29 Reading Location: [facility] Reading Room CBC (HEMOGRAM ONLY)2019-03-29 08:10:00 [...] WBC 0-0 (BEAKER) (test code = 413) [id number] 06:20:00 Test Item Value Reference Range Interpretation Comments PHOSPHORUS (BEAKER) (test code = 2.6 mg/dL 2.3-4.7 604) [id number] 06:20:00 Test Item Value Reference Range Interpretation Comments MAGNESIUM (BEAKER) (test code = 2.0 mg/dL 1.6-2.6 627) BASIC METABOLIC [id number] 06:20:00 Test Item Value Reference Range Interpretation [...] TS. RAD, ABDOMEN SERIES W/ UPRIGHT PA [id number] 22:18:00Reason for exam:- >eval ileusFINAL REPORT CLINICAL [...] Date/Time: 03/28/2019 22:18:50 RAD, ABDOMEN/KUB, 1 VIEW [id number] 11:23:00Reason for exam:->abdominal distensionShould this be performed [...] Ontiveros Verified Date/Time: 03/28/2019 11:23:34 Reading Location: [facility] Radiology Reading Room TISSUE [id number] 09:00:00Surgical Pathology Report Case: [id number] Authorizing Provider: Graciela Garrison MD Collected: 03/25/2019 1133 Ordering Location: [facility] Received: 03/25/2019 1527 SERVICES Pathologist: Jordan Celaya MD Specimens: A) - Ileostomy, end ileostomy B) - Appendix A. SMALL BOWEL, END ILEOSTOMY, TAKEDOWN: - ENTERIC WALL WITH ULCERATION, TRANSMURAL ACUTE INFLAMMATION, NECROSIS AND FOCAL INFLAMMATORY CHANGES CONSISTENT WITH DIVERSION COLITIS - VIABLE MARGINS - NEGATIVE FOR DYSPLASIA ORMALIGNANCYB. APPENDIX, APPENDECTOMY: - APPENDIX WITH NO SIGNIFICANT DIAGNOSTIC ABNORMALITY - NEGATIVE FOR MALIGNANCY Signing Pathologist Direct Phone Line: [phone] signed by Jordan Celaya MD on 03/28/2019 at 9:00 [id number] and postop diagnosis: ileostomy statusA. End ileostomy; [...] nodes are not identified in the mesentery. Pasteurizer Helper sections are submitted. Section code: A, telephone sales representative section of each end of first mentioned segment of small bowel; A2, telephone sales representative of first mentioned segment of small bowel mucosa; A3, area of hemorrhagic mesentery of second mentioned segment of mucosa; A4, telephone sales representative of hemorrhagic mucosa at open end of second portion of small bowel; A5, telephone sales representative of stapled margin from second mentioned segment of small bowel, en face. B. Received fresh labeled with the patient's name, acce ssion number and "appendix" is an intact appendix measuring 3.5 cm in length and 0.6 cm in diameter which has a moderate amount of attached mesoappendix. The serosa is pink and smooth. The proximal endis cauterized. The specimen is serially sectioned to reveal a abad, smooth mucosa. No fecaliths are present. The wall thickness is 0.2 cm. No gross lesions are identified. Pasteurizer Helper sections are submitted. Section code: B1, proximal margin en face and tip; B2, telephone sales representative cross section. CG/pl Performed.[id number] 06:23:00 Test Item Value Reference Range Interpretation Comments PHOSPHORUS (BEAKER) (test code = 2.7 mg/dL 2.3-4.7 604) [id number] 06:23:00 Test Item Value Reference Range Interpretation Comments MAGNESIUM (BEAKER) (test code = 1.9 mg/dL 1.6-2.6 627) BASIC METABOLIC [id number] 06:23:00 Test Item Value Reference Range Interpretation [...] S NOT APPLICABLE FOR DIALYSIS PATIEN TS. [id number] 08:20:00 Test Item Value Reference Range Interpretation Comments PHOSPHORUS (BEAKER) (test code = 2.6 mg/dL 2.3-4.7 604) [id number] 08:20:00 Test Item Value Reference Range Interpretation Comments MAGNESIUM (BEAKER) (test code = 1.8 mg/dL 1.6-2.6 627) BASIC METABOLIC [id number] 08:20:00 Test Item Value Reference Range Interpretation [...] S NOT APPLICABLE FOR DIALYSIS PATIEN TS. [id number] 06:06:00 Test Item Value Reference Range Interpretation Comments PHOSPHORUS (BEAKER) (test code = 4.1 mg/dL 2.3-4.7 604) [id number] 06:06:00 Test Item Value Reference Range Interpretation Comments MAGNESIUM (BEAKER) (test code = 1.8 mg/dL 1.6-2.6 627) BASIC METABOLIC [id number] 06:06:00 Test Item Value Reference Range Interpretation [...] S NOT APPLICABLE FOR DIALYSIS PATIEN TS. [id number] 06:03:00 Test Item Value Reference Range Interpretation Comments PHOSPHORUS (BEAKER) (test code = 4.2 mg/dL 2.3-4.7 604) [id number] 06:03:00 Test Item Value Reference Range Interpretation Comments MAGNESIUM (BEAKER) (test code = 2.0 mg/dL 1.6-2.6 627) BASIC METABOLIC [id number] 06:03:00 Test Item Value Reference Range Interpretation [...] WBC 0-0 (BEAKER) (test code = 413) [id number] 05:52:00 Test Item Value Reference Range Interpretation Comments PHOSPHORUS (BEAKER) (test code = 4.2 mg/dL 2.3-4.7 604) [id number] 05:52:00 Test Item Value Reference Range Interpretation Comments MAGNESIUM (BEAKER) (test code = 1.9 mg/dL 1.6-2.6 627) BASIC METABOLIC [id number] 05:52:00 Test Item Value Reference Range Interpretation [...] S NOT APPLICABLE FOR DIALYSIS PATIEN TS. [id number] 06:51:00 Test Item Value Reference Range Interpretation Comments PHOSPHORUS (BEAKER) (test code = 4.3 mg/dL 2.3-4.7 604) [id number] 06:51:00 Test Item Value Reference Range Interpretation Comments MAGNESIUM (BEAKER) (test code = 2.0 mg/dL 1.6-2.6 627) BASIC METABOLIC [id number] 06:51:00 Test Item Value Reference Range Interpretation [...] 0-0 (BEAKER) (test code = 413) TISSUE [id number] 11:50:00Surgical Pathology Report Case: [id number] Authorizing Provider: Mela Larson MD Collected: 03/18/2019 1827 Ordering Location: [facility] Received: 03/21/2019 0823 SERVICES Pathologist: Jordan Celaya MD Specimen: Small Bowel, NOS A. SMALL BOWEL, ILEOSTOMY PROLAPSE, TAKEDOWN: - ANASTOMOSIS SITE WITH ACTIVE CHRONIC INFLAMMATION AND FOCAL ISCHEMIC CHANGES - MUCOSAL RESECTIONMARGINS, NEGATIVE FOR MALIGNANCY - ONE BENIGN LYMPH NODE (0/1) - NEGATIVE FOR DYSPLASIA OR MALIGNANCY Signing Pathologist Direct Phone Line: [phone] signed by Jordan Celaya MD on 03/22/2019 at 11:50 [id number] of ileostomyReceived in a container labeled "small [...] 0.5 to 1.2 cm in greatest dimension. Pasteurizer Helper sections are submitted as follows: A1-A2, mucosal resection margin, en face; A3-A6, telephone sales representative sections of the possible ostomy stump; A7-A11, serial telephone sales representative sections from mucosal resection margin to the possible ostomy stump; A12, two lymph nodes. TH/plPerformed.[id number] 06:58:00 Test Item Value Reference Range Interpretation Comments PHOSPHORUS (BEAKER) (test code = 3.8 mg/dL 2.3-4.7 604) [id number] 06:58:00 Test Item Value Reference Range Interpretation Comments MAGNESIUM (BEAKER) (test code = 2.0 mg/dL 1.6-2.6 627) BASIC METABOLIC [id number] 06:58:00 Test Item Value Reference Range Interpretation [...] PATIEN TS. CBC W/PLT COUNT & AUTO [id number] 05:42:00 Test Item Value Reference Range Interpretation [...] 0-1 PERCENT (BEAKER) (test code = 2801) [place], [id number] 17:42:00Reason for exam:->evaluate for colon stricture as [...] of images obtained: 11 Signed: Shanelle Lopez Verified Date/Time: 03/21/2019 17:42:21 Reading Location: [facility] C013X [facility] Reading Room [id number] 03:58:00 Test Item Value Reference Range Interpretation Comments PHOSPHORUS (BEAKER) (test code = 3.0 mg/dL 2.3-4.7 604) [id number] 03:58:00 Test Item Value Reference Range Interpretation Comments MAGNESIUM (BEAKER) (test code = 2.0 mg/dL 1.6-2.6 627) BASIC METABOLIC [id number] 03:58:00 Test Item Value Reference Range Interpretation [...] PATIEN TS. CBC W/PLT COUNT & AUTO [id number] 03:20:00 Test Item Value Reference Range Interpretation [...] (BEAKER) (test code = 2801) BASIC METABOLIC [id number] 06:26:00 Test Item Value Reference Range Interpretation [...] S NOT APPLICABLE FOR DIALYSIS PATIEN TS. [id number] 06:05:00 Test Item Value Reference Range Interpretation Comments PHOSPHORUS (BEAKER) (test code = 2.2 mg/dL 2.3-4.7 L 604) [id number] 06:05:00 Test Item Value Reference Range Interpretation Comments MAGNESIUM (BEAKER) (test code = 2.0 mg/dL 1.6-2.6 627) CBC W/PLT COUNT & AUTO [id number] 05:25:00 Test Item Value Reference Range Interpretation [...] 0-1 PERCENT (BEAKER) (test code = 2801) [id number] 04:31:00 Test Item Value Reference Range Interpretation Comments PHOSPHORUS (BEAKER) (test code = 3.7 mg/dL 2.3-4.7 604) [id number] 04:31:00 Test Item Value Reference Range Interpretation Comments MAGNESIUM (BEAKER) (test code = 1.9 mg/dL 1.6-2.6 627) BASIC METABOLIC [id number] 04:31:00 Test Item Value Reference Range Interpretation [...] PATIEN TS. CBC W/PLT COUNT & AUTO [id number] 04:15:00 Test Item Value Reference Range Interpretation [...] 0-1 PERCENT (BEAKER) (test code = 2801) [id number] 06:41:00 Test Item Value Reference Range Interpretation Comments PHOSPHORUS (BEAKER) (test code = 3.1 mg/dL 2.3-4.7 604) [id number] 06:41:00 Test Item Value Reference Range Interpretation Comments MAGNESIUM (BEAKER) (test code = 1.9 mg/dL 1.6-2.6 627) BASIC METABOLIC [id number] 06:41:00 Test Item Value Reference Range Interpretation [...] PATIEN TS. CBC W/PLT COUNT & AUTO [id number] 06:36:00 Test Item Value Reference Range Interpretation [...] PERCENT (BEAKER) (test code = 2801) CT, [id number] 17:04:00No PO contrastFINAL REPORT ABDOMINAL AND PELVIS [...] MDReport Verified Date/Time: 03/17/2019 17:04:19 Reading Location: [facility] C013Y CT Body Reading Room XR ABDOMEN 2 [id number] 09:03:45XR ABDOMEN 2 VIEWSLOCATION: [id number]: Colstomy ProlapseCOMPARISON: Chest radiograph 04/15/2017, CT of [...] Nonspecific, nonobstructive bowel gas pattern.XR CHEST 1 [id number] 11:32:15EXAM: CHEST ONE VIEWINDICATION: Chest painCOMPARISON: None availableTECHNIQUE: AP view of the chest.FINDINGS: The cardiomediastinal silhouette is normal. The lungs are clearbilaterally. No pneumothoraxor pleural effusion is identified. Theosseous structures are unremarkable.IMPRESSION: No acute cardiopulmonary process.LOCATION: R70Cgxti Type and [id number] 21:21:00 Test Item Value Reference Range Interpretation Comments ABO type (test code = ABO) O Rh Type (test code = RH) Positive Comprehensive Metabolic [id number] 20:36:00 Test Item Value Reference Range Interpretation [...] the National Kidney Foundation,http ://nkd ep.nih.gov Alcohol/Ethanol, [id number] 20:36:00 Test Item Value Reference Range Interpretation Comments Alcohol, Ethyl <0.01 g/dL 0.00-0.01 N Intoxicated 0 .080 g/dL (test code = ETOH) or more Prothrombin [id number] 20:00:00 Test Item Value Reference Range Interpretation Comments PT (test code = PT) 10.10 seconds 9.78-13.35 N INR (test code = INR) 0.88 Ratio 0.6-1.2 N Partial Thromboplastin [id number] 20:00:00 Test Item Value Reference Range Interpretation Comments aPTT (test code = PTT) 31.50 seconds 24.39-37.25 N CBC with [id number] 19:50:00 Test Item Value Reference Range Interpretation [...] code = ALYMPH) 2.2 K/cumm 0.5-4.6 N [place] Abs (test code = AMONO) 0.4 K/cumm 0.0-1.2 N Eos Abs (test code = AEOS) 0.17 K/cumm 0.00-0.74 N Baso Abs (test code = ABASO) 0.0 K/cumm 0.00-0.21 N 93541& PELVIS W/O [id number] 17:36:28CT ABDOMEN AND PELVIS WITHOUT CONTRAST.CLINICAL HISTORY: [...]
--- NOTE | 2022-05-14 20:33 | EDPHYS ---
Physician Documentation [facility] [place], [place] Name: Rico Mcneill Age: 52 yrs Sex: Male : 1970 Arrival Date: 05/14/2022 Time: 18:28 Bed IW3 Private MD: ED Physician Saad Alberto HPI: 05/14 20:00 This 52 yrs old Male presents to ER via Ambulatory with complaints of ostomy bag cp problem. 20:00 Patient reports he has run out of ostomy bags. No other complaints at this time. cp Historical: - Allergies: 18:56 NKDA; [facility] - PMHx: 18:56 ileostomy; [facility] - PSHx: 18:56 Small bowel resection with ileostomy; [facility] - Immunization history:: Adult Immunizations. - Social history:: Smoking status: Patient denies any tobacco usage or history of. ROS: 20:05 Constitutional: Negative for body aches, chills, fever, poor PO intake. cp 20:05 Cardiovascular: Negative for chest pain, palpitations. cp 20:05 Respiratory: Negative for cough, shortness of breath, wheezing. 20:05 Abdomen/GI: Negative for abdominal pain, nausea, vomiting, and diarrhea. 20:05 Neuro: Negative for weakness. 20:05 All other systems are negative. Exam: 20:10 Constitutional: The patient appears in no acute distress, alert, awake, cp non-diaphoretic, non-toxic, well developed, well nourished. 20:10 Head/Face: Normocephalic, atraumatic. cp 20:10 Chest/axilla: Inspection: normal. 20:10 Cardiovascular: Rate: normal. 20:10 Respiratory: the patient does not display signs of respiratory distress, Respirations: normal, no use of accessory muscles, no retractions, labored breathing, is not present, Breath sounds: are clear throughout. 20:10 Abdomen/GI: Inspection: ostomy bag in place right mid abdomen, Bowel sounds: active, all quadrants, Palpation: abdomen is soft and non-tender, in all quadrants. Vital Signs: 18:54 BP 104 / 68; Pulse 84; Resp 17; Temp 98.9(O); Pulse Ox 100% on R/A; Weight 65.77 kg; [facility] Height 6 ft. 1 in. (185.42 cm); Pain 0/10; 20:44 BP 109 / 72; Pulse 79; Resp 18; Pulse Ox 100% on R/A; Pain 0/10; ld1 18:54 Body Mass Index 19.13 (65.77 kg, 185.42 cm) jh6 MDM: 19:30 Patient medically screened. cp 20:32 Data reviewed: vital signs, nurses notes, and as a result, I will discharge patient. cp Administered Medications: No medications were administered Disposition: 05/15 09:20 Co-signature as Attending Physician, Saad Alberto DO I was immediately available on-site ms3 in the Emergency Department for consultation in the care of the patient.. Disposition Summary: 05/14/22 20:32 Discharge Ordered Location: Home cp Problem: new cp Symptoms: have improved cp Condition: Stable cp Diagnosis - Encounter for attention to colostomy cp Followup: cp - With: Private Physician - When: 2 - 3 days - Reason: Recheck today's complaints Discharge Instructions: - Discharge Summary Sheet cp - Colostomy Home Guide, Adult cp Forms: - Medication Reconciliation Form cp - Thank You Letter cp - Antibiotic Education cp - Prescription Opioid Use cp Signatures: Rashaun Irby PA PA cp Saad Alberto DO DO ms3 Karin Berger, RN RN jh6
--- NOTE | 2022-05-14 20:33 | ER ---
Nurse's Notes [facility] Name: Rico Mcneill Age: 52 yrs Sex: Male : 1970 Arrival Date: 05/14/2022 Time: 18:28 Bed IW3 Private MD: Diagnosis: Encounter for attention to colostomy Presentation: 05/14 18:54 Chief complaint: Patient states: running out of wafers for ostomy bag. no pain or other [facility] issues. states that he does not have a dr. Coronavirus screen: Vaccine status: Patient reports being unvaccinated. Ebola Screen: Patient negative for fever greater than or equal to 101.5 degrees Fahrenheit, and additional compatible Ebola Virus Disease symptoms Patient denies exposure to infectious person. Patient denies travel to an Ebola-affected area in the 21 days before illness onset. Initial Sepsis Screen: Does the patient meet any 2 criteria? No. Patient's initial sepsis screen is negative. Does the patient have a suspected source of infection? No. Patient's initial sepsis screen is negative. Risk Assessment: Do you want to hurt yourself or someone else? Patient reports no desire to harm self or others. Onset of symptoms. 18:54 Method Of Arrival: Ambulatory [facility] 18:54 Acuity: OCTAVIO [address] [facility] Triage Assessment: 18:57 General: Appears in no apparent distress. Behavior is calm. Pain: Denies pain. [facility] Historical: - Allergies: 18:56 NKDA; [facility] - PMHx: 18:56 ileostomy; [facility] - PSHx: 18:56 Small bowel resection with ileostomy; [facility] - Immunization history:: Adult Immunizations. - Social history:: Smoking status: Patient denies any tobacco usage or history of. Screenin:44 Abuse screen: Denies threats or abuse. Denies injuries from another. Nutritional ld1 screening: No deficits noted. Tuberculosis screening: No symptoms or risk factors identified. Fall Risk None identified. Assessment: 20:44 Reassessment: See triage assessment. ld1 Vital Signs: 18:54 BP 104 / 68; Pulse 84; Resp 17; Temp 98.9(O); Pulse Ox 100% on R/A; Weight 65.77 kg; 6 Height 6 ft. 1 in. (185.42 cm); Pain 0/10; 20:44 BP 109 / 72; Pulse 79; Resp 18; Pulse Ox 100% on R/A; Pain 0/10; ld1 18:54 Body Mass Index 19.13 (65.77 kg, 185.42 cm) [facility] ED Course: 18:28 Patient arrived in ED. am2 18:56 Triage completed. [facility] 18:57 Arm band placed on right wrist. [facility] 19:17 Rashaun Irby PA is [facility]. cp 19:17 Saad Alberto DO is Attending Physician. cp 20:44 Patient has correct armband on for positive identification. Placed in gown. Bed in low ld1 position. Pulse ox on. NIBP on. Door closed. Noise minimized. 20:44 No provider procedures requiring assistance completed. Patient did not have IV access ld1 during this emergency room visit. Administered Medications: No medications were administered Medication: 20:44 VIS not applicable for this client. ld1 Outcome: 20:32 Discharge ordered by MD. cp 20:44 Discharged to home ambulatory. ld1 20:44 Condition: stable 20:44 Discharge instructions given to patient, Instructed on discharge instructions, follow up and referral plans. Demonstrated understanding of instructions, follow-up care. 20:45 Patient left the ED. ld1 Signatures: Rashaun Irby PA PA cp Drea Fisher am2 Rosaura Lilly, RN RN ld1 Karin Berger, RN RN [facility]
[2022-05-16 10:52] VITALS: TEMP 98.9; O2SAT 100
[2022-05-16 10:54] VITALS: BP 109/72
== END 2022-05-14 20:45 | disposition home or self-care (01) ==
LOC: ER 18:21
DX: Z43.3 Encounter for attention to colostomy (principal)
CPT/HCPCS: 99283

== ENCOUNTER 2022-05-18 12:26 | Emergency (ER) | payer SELFPAY ==
--- NOTE | 2022-05-18 12:49 | EDPHYS ---
Physician Documentation [facility] Name: Rico Mcneill Age: 52 yrs Sex: Male : 1970 Arrival Date: 05/18/2022 Time: 12:29 Bed 13 Private MD: ED Physician Theodore Whyte HPI: 05/18 12:43 This 52 yrs old Male presents to ER via EMS with complaints of colostomy problem. rn 12:43 Pt reports colostomy bag came off while sleeping. No other complaints. Does not have rn another bag to replace. . Onset: The symptoms/episode began/occurred this morning. Severity of symptoms: At their worst the symptoms were mild in the emergency department the symptoms are unchanged. The patient has experienced similar episodes in the past. The patient has not recently seen a physician. Historical: - Allergies: 12:38 NKDA; mb8 - PMHx: 12:38 ileostomy; mb8 - PSHx: 12:38 Small bowel resection with ileostomy; mb8 - Immunization history:: Adult Immunizations unknown. - Social history:: Smoking status: Patient reports use of chewing tobacco. - Family history:: not pertinent. - Hospitalizations: : No recent hospitalization is reported. ROS: 12:43 Constitutional: Negative for fever, chills, and weight loss, Cardiovascular: Negative rn for chest pain, palpitations, and edema, Respiratory: Negative for shortness of breath, cough, wheezing, and pleuritic chest pain, Abdomen/GI: Negative for abdominal pain, nausea, vomiting, diarrhea, and constipation. Exam: 12:43 Constitutional: This is a well developed, well nourished patient who is awake, alert, rn and in no acute distress. Cardiovascular: Regular rate and rhythm. No pulse deficits. Respiratory: No increased work of breathing, no retractions or nasal flaring. Abdomen/GI: soft, non-tender, RLQ ostomy exposed and collecting stool in cup. Vital Signs: 12:35 BP 105 / 72; Pulse 86; Resp 16; Temp 98.6; Pulse Ox 98% ; Pain 10/10; mb8 13:15 BP 108 / 75; Pulse 82; Resp 16; Pulse Ox 98% ; ko1 MDM: 12:34 Patient medically screened. rn 12:43 Differential Diagnosis colostomy bag complication. Data reviewed: vital signs, nurses rn notes, old medical records, and as a result, I will discharge patient. Counseling: I had a detailed discussion with the patient and/or guardian regarding: the historical points, exam findings, and any diagnostic results supporting the discharge/admit diagnosis, the need for outpatient follow up, to return to the emergency department if symptoms worsen or persist or if there are any questions or concerns that arise at home. Special discussion: I discussed with the patient/guardian in detail that at this point there is no indication for admission to the hospital. It is understood, however, that if the symptoms persist or worsen the patient needs to return immediately for re-evaluation. 05/18 12:36 Order name: [facility] [place]. Order: clean and place new colostomy bag rn Administered Medications: No medications were administered Disposition Summary: 05/18/22 12:48 Discharge Ordered Location: Home rn Problem: new rn Symptoms: have improved rn Condition: Stable rn Diagnosis - Encounter for attention to colostomy rn Followup: rn - With: Private Physician - When: As needed - Reason: Recheck today's complaints, Re-evaluation by your physician Discharge Instructions: - Discharge Summary Sheet rn - Colostomy Home Guide, Adult rn Forms: - Medication Reconciliation Form rn - Thank You Letter rn - Antibiotic application development intern - Prescription Opioid Use rn Signatures: Theodore Whyte MD MD rn Bates, Michael RN RN mb8 Hansa Campuzano RN RN ko1
--- NOTE | 2022-05-18 12:49 | ER ---
Nurse's Notes [facility] Name: Rico Mcneill Age: 52 yrs Sex: Male : 1970 Arrival Date: 05/18/2022 Time: 12:29 Bed 13 Private MD: Diagnosis: Encounter for attention to colostomy Presentation: 05/18 12:35 Chief complaint: Patient states: colostomy bag fell off last night. C/o abdominal pain. mb8 Coronavirus screen: Vaccine status: Patient reports being unvaccinated. Ebola Screen: Patient negative for fever greater than or equal to 101.5 degrees Fahrenheit, and additional compatible Ebola Virus Disease symptoms Patient denies exposure to infectious person. Patient denies travel to an Ebola-affected area in the 21 days before illness onset. Initial Sepsis Screen: Does the patient meet any 2 criteria? No. Patient's initial sepsis screen is negative. Does the patient have a suspected source of infection? No. Patient's initial sepsis screen is negative. Risk Assessment: Do you want to hurt yourself or someone else? Patient reports no desire to harm self or others. Onset of symptoms was May 18, 2022. 12:35 Method Of Arrival: EMS mb8 12:35 Acuity: OCTAVIO 4 mb8 12:35 Acuity: OCTAVIO 3 mb8 Triage Assessment: 12:39 General: Appears uncomfortable, Behavior is calm, cooperative, appropriate for age. mb8 Pain: Complains of pain in abdomen. Historical: - Allergies: 12:38 NKDA; mb8 - PMHx: 12:38 ileostomy; mb8 - PSHx: 12:38 Small bowel resection with ileostomy; mb8 - Immunization history:: Adult Immunizations unknown. - Social history:: Smoking status: Patient reports use of chewing tobacco. - Family history:: not pertinent. - Hospitalizations: : No recent hospitalization is reported. Screenin:00 Abuse screen: Denies threats or abuse. Denies injuries from another. Nutritional ko1 screening: No deficits noted. Tuberculosis screening: No symptoms or risk factors identified. Fall Risk None identified. Assessment: 13:00 General: Appears in no apparent distress. comfortable, Behavior is calm, cooperative, ko1 appropriate for age. Pain: Denies pain. Neuro: No deficits noted. Cardiovascular: No deficits noted. Respiratory: No deficits noted. GI: Colostomy site Ostomy appliance is not intact. : No deficits noted. EENT: No deficits noted. Derm: No deficits noted. Musculoskeletal: No deficits noted. Vital Signs: 12:35 BP 105 / 72; Pulse 86; Resp 16; Temp 98.6; Pulse Ox 98% ; Pain 10/10; mb8 13:15 BP 108 / 75; Pulse 82; Resp 16; Pulse Ox 98% ; ko1 ED Course: 12:29 Patient arrived in ED. eb 12:34 Theodore Whyte MD is Attending Physician. rn 12:38 Triage completed. mb8 12:39 Arm band placed on. mb8 12:44 Hansa Campuzano, RN is Primary Nurse. ko1 13:00 Patient has correct armband on for positive identification. Bed in low position. Call ko1 light in reach. Side rails up X 1. 13:00 No provider procedures requiring assistance completed. Patient did not have IV access ko1 during this emergency room visit. Administered Medications: No medications were administered Medication: 13:00 VIS not applicable for this client. ko1 Outcome: 12:48 Discharge ordered by . rn 13:00 Discharged to home ambulatory. ko1 13:00 Condition: stable 13:00 Discharge instructions given to patient, Instructed on discharge instructions, follow up and referral plans. Demonstrated understanding of instructions, follow-up care. 13:53 Patient left the ED. tw2 Signatures: Theodore Whyte MD MD rn Wise, Tara, RN RN tw2 Jessica Patel Michael, RN RN mb8 Hansa Campuzano, BRITTNY RN ko1
--- OUTSIDE RECORDS SUMMARY | 2022-05-18 13:08 | XMS REPORT | Continuity of Care Document ---
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 [id number] 4mg Take 1 [facility] 4 mg 1-15 [...] s: acute pain ondansetron 0 2021- No [id number] 4mg Take 1 [facility] 4 mg 1-15 [...] mcg tablet 00:00: mouth [place] 00 daily. [facility] Branch vitamin 2021-0 Yes 1000ug Take 1 Univer s B-12 1,000 1-13 tablet by ity of mcg tablet 00:00: mouth [place] 00 daily. [facility] Branch vitamin 2-0 Yes 1000ug Take 1 Univer s B-12 1,000 1-13 tablet by ity of mcg tablet 00:00: mouth [place] 00 daily. [facility] Branch vitamin 2022-0 Yes 1000ug Take 1 Univer s B-12 1,000 1-13 tablet by ity of mcg tablet 00:00: mouth [place] 00 daily. [facility] Branch vitamin 2022-0 Yes 1000ug Take 1 Univer s B-12 1,000 1-13 tablet by ity of mcg tablet 00:00: mouth [place] 00 daily. [facility] Branch vitamin 2-0 Yes 1000ug Take 1 Univer s B-12 1,000 1-13 tablet by ity of mcg tablet 00:00: mouth [place] 00 daily. Medical Branch vitamin 2022-0 Yes 1000ug Take 1 [...] Branch daily with meals. loperamide 2022-0 Yes [id number] 2mg Take 1 [facility] 2 mg 1-12 [...] Branch daily with meals. loperamide 2022-0 Yes [id number] 2mg Take 1 [facility] 2 mg 1-12 [...] Branch daily with meals. loperamide 2022-0 Yes [id number] 2mg Take 1 [facility] 2 mg 1-12 [...] Branch daily with meals. loperamide 2022-0 Yes [id number] 2mg Take 1 [facility] 2 mg 1-12 [...] Branch daily with meals. loperamide 2022-0 Yes [id number] 2mg Take 1 [facility] 2 mg 1-12 [...] Branch daily with meals. loperamide 2022-0 Yes [id number] 2mg Take 1 [facility] 2 mg 1-12 [...] Branch daily with meals. loperamide 2022-0 Yes [id number] 2mg Take 1 [facility] 2 mg 1-12 [...] Branch daily with meals. loperamide 2022-0 Yes [id number] 2mg Take 1 [facility] 2 mg 1-12 capsule by ity of capsule 00:00: mouth 2 (two) Medical times Branch daily. psyllium 2022-0 Yes 1{packe Take 1 Univ ers 3.4 gram 1-12 t} Packet by ity of packet 00:00: mouth 2 (two) Medical times Branch daily. acetaminoph 2022-0 Yes 650mg Take 2 Uni vers en 325 mg 1-12 tablets by ity of tablet 00:00: mouth 00 every 6 Medical (six) Branch hours as needed for Pain (scale 1-3). ibuprofen 2022-0 Yes 600mg Take 1 Unive rs 600 mg 1-12 tablet by ity of tablet 00:00: mouth 3 [place] (three) Medical times Branch daily with meals. loperamide 2022-0 Yes [id number] 2mg Take 1 [facility] 2 mg 1-12 capsule by ity of capsule 00:00: mouth [place] (two) Medical times Branch daily. psyllium 2022-0 Yes 1{packe Take 1 Univ ers 3.4 gram 1-12 t} Packet by ity of packet 00:00: mouth [place] (two) Medical times Branch daily. acetaminoph 2022-0 [...] ity of tablet 00:00: 00:00 mouth 3 [place] 00 :00 (three) Medical times Branch daily with meals. loperamide 2022-0 2022- No [id number] 2mg Take 1 [facility] 2 mg 1-12 08-10 capsule by ity of capsule 00:00: 00:00 mouth 2 [place] 00 :00 (two) Medical times Branch daily. psyllium 2022-0 2022- No 1{packe Take 1 Uni vers 3.4 gram 1-12 08-10 t} Packet by ity o f packet 00:00: 00:00 mouth 2 [place] 00 :00 (two) Medical times Branch daily. [...] at injection 0938, Routine, Intra-op D5W 0.45% 2022- No IV Univers NaCl 09-03 Infusion, ity of (1/2NS) 1 L 09:45: 14:26 at 110 [place] + KCL 20 00 :39 mL/hr, Medical mEq CONTINUOUS Branch , Starting on 09/03/21 at 0345, Until 09/03/21 at 0826, Routine sulfur 2021- No [id number] 5mL 5 mL, Unive rs hexafluorid 09-02 Intravenou i ty of e microsphr 21:30: 21:30 s, ONCE, 1 [place] (LUMASON) 00 :00 dose, On Medica l injection 5 Mon Branch mL 09/02/21 at 1530, Routine
member service specialist approving Restricted medication : CAMILA GREGORY NaCl [...] dose, On 08/31/21 at 0915, STAT pantoprazol Yes 40mg 40 mg, Univ ers e 08 Oral, ity of (PROTONIX) 15:00: DAILY, [place] EC tablet 00 First dose Medi mariusz 40 mg on Sat Branch 08/31/21 at 0900, Until Discontinu ed, Routine pantoprazol 2022-0 Yes 40mg 40 mg, Univ ers e 1-08 Oral, ity of (PROTONIX) 15:00: DAILY, [place] EC tablet 00 First dose Medi mariusz [...] 14:00: First dose [place] SINGLES) 00 on [facility] Medical 3.4 gram 08/31/21 at [...] 08 Oral, ity of (TYLENOL) 06:03: Q6HPRN, [place] tablet 650 36 Starting Medic al mg on [facility] Branch 08/31/21 at 0003, Until Discontinu ed, Routine, Pain (scale 1-3) acetaminoph 0 Yes 650mg 650 mg, Un piyush en 08 Oral, ity of (TYLENOL) 06:03: Q6HPRN, [place] tablet 650 36 Starting Medic al mg on [facility] Branch 08/31/21 at 0003, Until Discontinu ed, Routine, Pain (scale 1-3) NaCl 0.9% 2021- No 1000mL at 999 Uni vers (NS) bolus 08-31 mL/hr, ity of infusion 01:45: 02:43 1,000 mL, [place] 1,000 mL 00 :00 IV Medical Infusion, Branch ONCE, 1 dose, On 08/30/21 at 1945, STAT albuterol 2021-2021- No 8{puff} 8 Puff, U nivers (VENTOLIN) 08-30 Inhalation it y of inhaler 8 01:00: 00:20 , ONCE, 1 [place] Puff 00 :00 dose, On Medical [place] 08/29/21 Branch at 1900, JOÃO acetaminoph 2021- No 1000mg 1,000 mg, Univers en 08-30 Oral, ity of (TYLENOL) 00:30: 00:20 ONCE, 1 [place] tablet 00 :00 dose, On Medical 1,000 mg [facility] 08/29/21 Bran h at 1830, Routine lidocaine 2021-2021- No 10mL 10 mL, Unive rs 2% viscous 08-30 Oral, ity of (LIDOCAINE 00:30: 00:20 ONCE, 1 [place] VISCOUS) 2 00 :00 dose, On Medic al % solution [facility] 08/29/21 Bra nch 10 mL at 1830, JOÃO benzonatate No 100mg 100 mg, U nivers (TESSALON 1-07 01-07 Oral, ity of PERLES) 00:30: 00:22 ONCE, 1 [place] capsule 100 00 :00 dose, On Medi mariusz mg [place] 08/29/21 Branch at 1830, Routine No known No Univers medications 1-06 ity of 19:35: [place] 26 Medical Branch NaCl 0.9% 2020-08 Yes 10mL 10 mL, Univer s (NS) 2-12 Slow IV ity of injection 19:13: Push, PRN, [place] 10 mL 37 Starting Medical on [place] Branch 08/04/21 at 1313, Until Discontinu ed, Routine, line maintenanc e lidocaine 2020-08 Yes 5mL 5 mL, Univers 1% (PF) 2-12 Subcutaneo ity of (XYLOCAINE) 19:13: us, PRN, [place] injection 5 37 Starting Medi mariusz mL on [place] Branch 08/04/21 at 1313, Until Discontinu ed, Routine, Local anesthesia dextrose 5% 2020-08 Yes IV Univer s and 0.45% 2-12 Infusion, ity o f NaCl with 16:00: CONTINUOUS [place] KCl 40 mEq 00 , Starting Med ical 1,000 mL IV on [place] Branch Solution 08/04/21 at 1000, Until Discontinu ed, 1,000 mL, at 125 mL/hr NaCl 0.9% 2020-08- No 1000mL at 999 Uni vers (NS) bolus 2-12 12-12 mL/hr, ity of infusion 15:53: 17:17 1,000 mL, [place] 1,000 mL 00 :00 IV Medical Piggyback, Branch ONCE, 1 dose, On 08/04/21 at 1000, JÃOO D5W 0.45% 2020-08- No IV Univers NaCl + KCL 2-10 12-12 Infusion, ity of 20 mEq RTU 15:00: 15:56 CONTINUOUS [place] 20 mEq/L 00 :45 , Starting Medic al 1,000 mL IV on Fri Branch Solution 08/02/21 at 0900, Until 08/04/21 at 0956, 1,000 mL, at 100 [...] No 1{tbl} 1 tablet, Univers te-atropine 10-02 1210 Oral, TID, i ty of (LOMOTIL) 14:00: [...] 2 g, IV Univ ers sulfate in 10-02- Piggyback, it y of water 2 13:00: 14:28 ONCE, 1 [place] gram/50 mL 00 :00 dose, On Medic al (4 %) [place] Branch infusion 2 08/01/21 at g 0700, Routine diphenoxyla 2020-08- No 1{tbl} 1 tablet, Univers te-atropine 208-01 Oral, BID, i ty of (LOMOTIL) 15:30: 13:19 First dose [place] 2.5-0.025 00 :28 on Thu Medical mg tablet 1 07/31/21 at Br anch tablet 0930, Until Discontinu ed, Routine iopamidol 2020-08 No [id number] 100mL 100 mL, Univers (ISOVUE 10-01 Intravenou ity o f 370-500 mL) 05:14: 05:14 s, ONCE, 1 [place] injection 00 :00 dose, On Medica l 100 mL [facility] 07/30/21 at 2315, Routine morpHINE 2020-08 No 2mg 2 mg, Slow Un piyush injection 2 09-30 IV Push, ity of mg 17:00: 17:10 ONCE, 1 [place] 00 :00 dose, On Medical [facility] 07/30/21 at 1115, Routine enoxaparin 2020-08 Yes 40mg 40 mg, Unive rs (LOVENOX) 09-30 Subcutaneo ity of injection 15:00: us, DAILY, [place] 40 mg 00 First dose Medical (after Branch last modificati on) on [facility] 07/30/21 at 0900, Until Discontinu ed, Routine pantoprazol 2020-08 No 40mg 40 mg, Uni vers e 09-30 Oral, ity of (PROTONIX) 15:00: 13:40 DAILY, [place] EC tablet 00 :20 First dose Medi mariusz 40 mg on [facility] 07/30/21 at 0900, Until Discontinu ed, Routine loperamide 2020-08 No 4mg 4 mg, Unive rs (IMODIUM 09-30 Oral, TID, ity of A-D) 14:00: 13:19 First dose [place] capsule 4 00 :28 on [facility] Medical mg 07/30/21 at Branch 0800, Until Discontinu ed, Routine psyllium 2020-08- No 1{packe 1 Packet, Univers (METAMUCIL 09-30 t} Oral, TID, it y of FIBER 14:00: 13:19 First dose [place] SINGLES) 00 :28 on [facility] Medical 3.4 gram 07/30/21 at [facility] h packet 1 0800, Packet Until Discontinu ed, Routine lactated 2020-08 No 1000mL at 75 Unive rs ringers IV 2- 12-10 mL/hr, ity of infusion 07:30: 13:59 1,000 mL, [place] 1,000 mL 00 :30 IV Medical Infusion, Branch CONTINUOUS , Starting on Thu07/30/21 at 0130, Until Thu08/02/21 at 0759, Routine NaCl 0.9% 2020-08- No 1000mL at 999 Uni vers (NS) bolus 2- 12-07 mL/hr, ity of infusion 07:15: 07:17 [...] 2-07 Oral, ity of (TYLENOL) 06:10: Q6HPRN, [place] tablet 650 40 Starting Medic al mg on Thu Branch 07/30/21 at 0010, Until Discontinu ed, Routine, Pain (scale 1-3) morpHINE 2020-08 No 4mg 4 mg, Slow Un piyush injection 4 2-07 12-07 IV Push, ity of mg 03:30: 02:55 ONCE, 1 [place] 00 :00 dose, On Medical Mon Branch 07/29/21 at 2130, STAT psyllium 2020-08 Yes [id number] 1{packe Take 1 [facility] 3.4 gram 2-03 t} Packet by ity of packet 00:00: mouth 3 [place] 00 (three) Medical times Branch daily. loperamide 2020-08 Yes [id number] 4mg Take 2 [facility] 2 mg 2-03 capsules ity of capsule 00:00: by mouth 3 [place] 00 (three) Medical times Branch daily. pantoprazol 2020-08 Yes [id number] 40mg Take 1 Univers e 40 mg EC 2-03 tablet by ity of tablet 00:00: mouth [place] 00 daily. Medical Branch psyllium 2020-08 Yes [id number] 1{packe Take 1 [facility] 3.4 gram 2-03 t} Packet by ity of packet 00:00: mouth 3 [place] 00 (three) Medical times Branch daily. loperamide 2020-08 Yes [id number] 4mg Take 2 [facility] 2 mg 2-03 capsules ity of capsule 00:00: by mouth 3 [place] 00 (three) Medical times Branch daily. pantoprazol 2020-08 Yes [id number] 40mg Take 1 Univers e 40 mg EC 2-03 tablet by ity of tablet 00:00: mouth [place] 00 daily. Medical Branch psyllium 2020-08- No [id number] 1{packe Take 1 [facility] 3.4 gram 2-03 12-13 t} Packet by ity o f packet 00:00: 00:00 mouth 3 [place] 00 :00 (three) Medical times Branch daily. loperamide 2020-08- No [id number] 4mg Take 2 Univers 2 mg 2-03 12-13 capsules ity of capsule 00:00: 00:00 by mouth 3 [place] 00 :00 (three) Medical times Branch daily. pantoprazol 2020-08- No [id number] 40mg Take 1 Univers e 40 mg EC 2-03 12-13 tablet by ity of tablet 00:00: 00:00 mouth [place] 00 :00 daily. Medical Branch psyllium 2020-08- No [id number] 1{packe Take 1 Univers 3.4 gram 2-03 12-03 t} Packet by ity o f packet 00:00: 00:00 mouth 3 [place] 00 :00 (three) Medical times Branch daily for 90 days. loperamide 2020-08- No [id number] 4mg Take 2 Univers 2 mg 2-03 12-03 capsules ity of capsule 00:00: 00:00 by mouth 3 [place] 00 :00 (three) Medical times Branch daily for 90 days. pantoprazol 2020-08- No [id number] 40mg Take 1 Univers e 40 mg EC 207-26 tablet by ity of tablet 00:00: 00:00 mouth [place] 00 :00 daily for Medical 90 days. Branch psyllium 2020-08- No [id number] 1{packe Take 1 Univers 3.4 gram 207-26 t} Packet by ity o f packet 00:00: 00:00 mouth 3 [place] 00 :00 (three) Medical times Branch daily. pantoprazol 2020-08- No [id number] 40mg Take 1 Univers e 40 mg EC 207-26 tablet by ity of tablet 00:00: 00:00 mouth [place] 00 :00 daily. Medical Branch loperamide 2020-08- No [id number] 4mg Take 2 [facility] 2 mg 207-26 capsules ity of capsule 00:00: 00:00 by mouth 3 [place] 00 :00 (three) Medical times Branch daily. psyllium 2020-08- No [id number] 1{packe Take 1 Univers 3.4 gram 09-26 t} Packet by ity o f packet 00:00: 00:00 mouth 3 [place] 00 :00 (three) Medical times Branch daily. loperamide 2020-08- No [id number] 4mg Take 2 Univers 2 mg 09-26 capsules ity of capsule 00:00: 00:00 by mouth 3 [place] 00 :00 (three) Medical times Branch daily. pantoprazol 2020-08- No [id number] 40mg Take 1 Univers e 40 mg EC 09-26 tablet by ity of tablet 00:00: 00:00 mouth [place] 00 :00 daily. Medical Branch pantoprazol 2020-08 Yes 40mg 40 mg, Univ ers e 2-02 Oral, ity of (PROTONIX) 15:00: DAILY, [place] EC tablet 00 First dose Medi mariusz 40 mg on [place] Branch 07/25/21 at 0900, Until Discontinu ed, Routine psyllium 2021-1 Yes 1{packe 1 Packet, U nivers (METAMUCIL [...] dose [place] 2.5-0.025 00 :48 on Thu Medical mg tablet 1 07/25/21 at Br anch tablet 0800, Until Discontinu ed, Routine NaCl 0.9% 2020-08 Yes 1000mL at 999 Univ ers (NS) bolus 2-02 mL/hr, ity of infusion 13:20: 1,000 mL, [place] 1,000 mL 46 IV Medical Piggyback, Branch PRN, Starting on Thu07/25/21 at 0720, Until Discontinu ed, Routine NaCl 0.9% 2020-08- No 1000mL at 999 Uni vers (NS) IV 09-24-01 mL/hr, IV ity of infusion 22:45: 21:43 Infusion, [place] 1,000 mL 00 :00 ONCE, 1 Medical dose, On Branch Thu07/24/21 at 1645, Routine lactated 2020-08- No [...] 2020-08- No 1{packe 1 Packet, Univers (METAMUCIL - 12- t} Oral, BID, it y of FIBER [...] Oral, ity of FIBER 15:00: 11:41 DAILY, [place] SINGLES) 00 :12 First dose Medic al [...] 650 37 Starting Medic al mg on Branch 07/23/21 at 0131, Until Discontinu ed, Routine, Pain (scale 1-3) NaCl 0.9% 2020-08 No 1000mL at 999 Uni vers (NS) bolus 09-22 11-30 mL/hr, ity of infusion 06:46: 07:00 1,000 mL, [place] 1,000 mL 00 :00 IV Medical Piggyback, [place] ONCE, 1 dose, On Thu07/23/21 at 0100, STAT heparin 2020-08 Yes 5000U 5,000 Univers (porcine) 0-09 Units, ity of injection 22:00: Subcutaneo [place] 5,000 Units 00 us, Q8H, Medi mariusz First dose Branch on [facility] 06/01/21 at 1700, Until Discontinu ed, Routine pantoprazol 2020-08 Yes 40mg 40 mg, Univ ers e 0-09 Oral, BID, ity of (PROTONIX) 14:45: First dose [place] EC tablet 00 on [facility] Medical 40 mg 06/01/21 at Branch 0945, Until Discontinu ed, Routine psyllium 2020-08 Yes 1{packe 1 Packet, U nivers (METAMUCIL 0-09 t} Oral, ity of FIBER 14:45: DAILY, [place] SINGLES) 00 First dose Medic al 3.4 gram on [facility] Branch packet 1 06/01/21 at Packet 0945, Until Discontinu ed, Routine traMADoL 2020-08 Yes 50mg 50 mg, Univers (ULTRAM) 0-09 Oral, ity of tablet 50 14:39: Q6HPRN, [place] mg 34 Starting Medical on [facility] Branch 06/01/21 at 0939, Until Discontinu ed, Routine, Pain (scale 4-6) HYDROcodone 2020-08 Yes 1{tbl} 1 tablet, Univers -acetaminop 0-09 Oral, ity of hen (NORCO 14:39: Q6HPRN, [place] 5) 5-325 mg 16 Starting Medi mariusz tablet 1 on [facility] Branch tablet 06/01/21 at 0939, Until Discontinu ed, Routine, Pain (scale 7-10) ondansetron 2020-08 Yes 4mg 4 mg, Slow Univers (ZOFRAN 0-09 IV Push, ity of (PF)) 14:38: Q6HPRN, [place] injection 4 58 Starting Medi mariusz mg on [facility] Branch 06/01/21 at 0938, Until Discontinu ed, Routine, Nausea and Vomiting (N/V) acetaminoph 2020-08 Yes 650mg 650 mg, Un piyush en 0-09 Oral, ity of (TYLENOL) 14:36: Q6HPRN, [place] tablet 650 07 Starting Medic al mg on [facility] Branch 06/01/21 at 0936, Until [...] Thu05/31/21 at 2045, STAT iopamidol 2020-08- No [id number] 100mL 100 mL, Univers (ISOVUE 0-09 10-09 [...] On Thu05/31/21 at 1830, STAT psyllium Yes [id number] 1{packe Take 1 [facility] 3.4 gram 9-29 t} Packet by ity of packet 00:00: mouth [place] 00 daily. Medical Branch psyllium Yes [id number] 1{packe Take 1 [facility] 3.4 gram 9-29 t} Packet by ity of packet 00:00: mouth [place] 00 daily. Medical Branch psyllium Yes [id number] 1{packe Take 1 [facility] 3.4 gram 9-29 t} Packet by ity of packet 00:00: mouth [place] 00 daily. Medical Branch psyllium Yes [id number] 1{packe Take 1 [facility] 3.4 gram 9-29 t} Packet by ity of packet 00:00: mouth [place] 00 daily. Medical Branch psyllium Yes [id number] 1{packe Take 1 [facility] 3.4 gram 9-29 t} Packet by ity of packet 00:00: mouth [place] 00 daily. Medical Branch psyllium 2020- No [id number] 1{packe Take 1 [facility] 3.4 gram 9-29 12-13 t} Packet by ity o f packet 00:00: 00:00 mouth [place] 00 :00 daily. Medical Branch enoxaparin Yes 40mg 40 mg, Unive rs (LOVENOX) 05-21 Subcutaneo ity of injection 14:00: us, DAILY, [place] 40 mg 00 First dose Medical on Thu05/21/21 at 0900, Until Discontinu ed, Routine ondansetron [...] 50mg 50 mg, Univer s (ULTRAM) 05-21 09-30 Oral, ity of tablet 50 00:15: 00:14 Q8HPRN, [place] mg 07 :07 Starting Medical on Thu Branch 05/20/21 at 1915, Until Thu05/22/21 at 1914, Routine, Pain (scale 4-6) acetaminoph Yes 650mg 650 mg, Un piyush en 05-21 Oral, ity of (TYLENOL) 00:15: Q6HPRN, [place] tablet 650 01 Starting Medic al mg [...] t} Oral, ity of FIBER 22:15: DAILY, [place] SINGLES) 00 First dose Medic al 3.4 [...] ity of (PF)) 21:00: 20:15 ONCE, 1 [place] injection 4 00 :00 dose, On Medi mariusz mg [facility] 05/20/21 at 1600, JOÃO morpHINE 2020- No 4mg 4 mg, Slow Un piyush injection 4 05-20 IV Push, ity of mg 21:00: 20:15 ONCE, 1 [place] 00 :00 dose, On Medical [facility] 05/20/21 at 1600, STAT NaCl 0.9% 2020- No 500mL at 999 Univ ers (NS) bolus 05-20 mL/hr, 500 it y of infusion 21:00: 21:00 mL, IV [place] 500 mL 00 :00 Piggyback, Medical ONCE, 1 Branch dose, On [facility] 05/20/21 at 1600, STAT pantoprazol Yes 40mg 40 mg, Univ ers e -17 Oral, BID, ity of (PROTONIX) 01:00: First dose [place] EC tablet 00 on [place] Medical 40 mg 05/09/21 at [place] 1999, Until Discontinu ed, Routine pantoprazol Yes 40mg 40 mg, Univ ers e -17 Oral, BID, ity of (PROTONIX) 01:00: First dose [place] EC tablet 00 on [place] Medical 40 mg 05/09/21 at [place] 1999, Until Discontinu ed, Routine pantoprazol 2020- No [id number] 40mg Take 1 Univers e 40 mg EC 9-16 11-16 tablet by ity of tablet 00:00: 05:59 mouth 2 [place] 00 :00 (two) Medical times [place] daily pantoprazol 2020- No [id number] 40mg Take 1 Univers e 40 mg EC 9-16 11-16 tablet by ity of tablet 00:00: 05:59 mouth 2 [place] 00 :00 (two) Medical times Branch daily pantoprazol 2020- No [id number] 40mg Take 1 Univers e 40 mg EC 9-16 11-16 tablet by ity of tablet 00:00: 05:59 mouth 2 [place] 00 :00 (two) Medical times Branch daily pantoprazol 2020- No [id number] 40mg Take 1 Univers e 40 mg EC 9-16 11-16 tablet by ity of tablet 00:00: 05:59 mouth 2 [place] 00 :00 (two) Medical times Branch daily pantoprazol 2020- No [id number] 40mg Take 1 Univers e 40 mg EC 9-16 11-16 tablet by ity of tablet 00:00: 05:59 mouth 2 [place] 00 :00 (two) Medical times Branch daily pantoprazol 2020- No [id number] 40mg Take 1 Univers e 40 mg EC 9-16 11-16 tablet by ity of tablet 00:00: 05:59 mouth 2 [place] 00 :00 (two) Medical times Branch daily pantoprazol 2020- No [id number] 40mg Take 1 Univers e 40 mg EC 9-16 11-16 tablet by ity of tablet 00:00: 05:59 mouth 2 [place] 00 :00 (two) Medical times Branch daily [...] at 0030, Until 9/15/21 at 0703, Routine D5W-LR IV 2020- No [...] Thu05/07/21 at 2330, Until Discontinu ed ondansetron 0 Yes 4mg 4 mg, Slow Univers (ZOFRAN 9-15 IV Push, ity of (PF)) 04:16: Q6HPRN, [place] injection 4 34 Starting Medi mariusz mg on Thu Branch 05/07/21 at 2316, Until Discontinu ed, Routine, Nausea and Vomiting (N/V) ondansetron 2020-0 Yes 4mg 4 mg, Slow Univers (ZOFRAN 9-15 IV Push, ity of (PF)) 04:16: Q6HPRN, [place] injection 4 34 Starting Medi mariusz mg on Thu Branch 05/07/21 at 2316, Until Discontinu ed, Routine, Nausea and Vomiting (N/V) morpHINE 2020-0 2020- No 4mg 4 mg, Slow Un piyush injection 4 05-08 IV Push, ity of mg 04:16: 04:15 Q4HPRN, [place] 32 :32 Starting Medical on Thu Branch 05/07/21 at 2316, Until Thu05/08/21 at 2315, Routine, Pain (scale 7-10) morpHINE 2020-0 2020- No 4mg 4 mg, Slow Un piyush injection 4 05-08 IV Push, ity of mg 04:16: 04:15 Q4HPRN, [place] 32 :32 Starting Medical on [facility] 05/07/21 at 2316, Until Thu05/08/21 at 2315, Routine, Pain (scale 7-10) diazePAM 0 2020- No 5mg 5 mg, Slow Un piyush (VALIUM) 05-08 IV Push, ity of injection 5 02:45: 02:49 ONCE, 1 [place] mg 00 :00 dose, On [facility] 05/07/21 at 2145, STAT diazePAM 2020-2020- No 5mg 5 mg, Slow Un piyush (VALIUM) 05-08 IV Push, ity of injection 5 02:45: 02:49 ONCE, 1 [place] mg 00 :00 dose, On [facility] 05/07/21 at 2145, STAT iopamidol 2020-2020- No [id number] 100mL 100 mL, Univers (ISOVUE 05-08 Intravenou ity o f 370-500 mL) 02:15: 01:08 s, ONCE, 1 [place] injection 00 :00 dose, On Medica l 100 mL [facility] 05/07/21 at 2115, Routine iopamidol 2020- No [id number] 100mL 100 mL, Univers (ISOVUE 05-08 Intravenou ity o f 370-500 mL) 02:15: 01:08 s, ONCE, 1 [place] injection 00 :00 dose, On Medica l 100 mL [facility] 05/07/21 at 2115, Routine morpHINE 2020-2020- No 4mg 4 mg, Slow Un piyush injection 4 05-08 IV Push, ity of mg 01:45: 00:48 ONCE, 1 [place] 00 :00 dose, On [facility] 05/07/21 at 2044, JOÃO ondansetron 2020- No 4mg 4 mg, Slow Univers (ZOFRAN 05-08 IV Push, ity of (PF)) 01:45: 00:47 ONCE, 1 [place] injection 4 00 :00 dose, On Medi mariusz mg [facility] 05/07/21 at 2044, JOÃO morpHINE 2020- No 4mg 4 mg, Slow Un piyush injection 4 05-08 IV Push, ity of mg 01:45: 00:48 ONCE, 1 [place] 00 :00 dose, On Medical Tue Branch [...] and up (PF) 17:30: 18:09 lar, ONCE, [place] (FLUZONE 00 :00 1 dose, Medical QUAD 08/24/20 Branch at 1130, (PF)) Routine syringe 0.5 mL sulfamethox 2020- No 1{tbl} 1 tablet, [facility] azole-trime 08-24 Oral, BID, i ty of thoprim 02:00: 13:59 7 doses, [place] (BACTRIM 00 :00 First dose Medic al DS) 800-160 on Thu Branch mg per 08/23/20 tablet 1 at 1999, tablet Last dose on 08/26/20 at 1999, JOÃO
Re ason for Anti-Infec tive: Empiric Therapy for Suspected Infection< br>Empiric Therapy Site: Skin / Soft tissue
Duration of therapy: 72 hours sulfamethox 2020- No [id number] 1{tbl} Take 1 [facility] azole-trime 08-24 tablet by it [...] First dose [place] SINGLES) 00 on [facility] Medical 3.4 gram 08/23/20 Branch packet 3 at 0800, Packet Until Discontinu ed, Routine heparin 2019-08 2020- No 5000U 5,000 Univers (porcine) 2-08-23 Units, ity of injection 14:00: 20:18 Subcutaneo [place] 5,000 Units 00 :30 us, Q12H, Med ical First dose Branch on [facility] 08/23/20 at 0800, Until Discontinu ed, Routine [...] f tablet 6 mg 03:12: - SEE [address] NS, 1 Branch dose, Starting Thu08/22/20 at 2112, Until Discontinu ed, Routine, Insomnia, HS labetaloL 2019-08 Yes 10mg 10 mg, Univer s (NORMODYNE) 2-31 Slow IV ity o f injection 03:12: Push, [place] 10 mg 33 Q6HPRN, Medical Starting Branch Thu08/22/20 at 2112, Until Discontinu ed, Routine, hypertensi on ondansetron 2019-08 Yes 4mg 4 mg, Slow Univers (ZOFRAN 2-31 IV Push, ity of (PF)) 03:12: Q6HPRN, [place] injection 4 08 Starting Medi mariusz mg Wed Branch 08/22/20 at 2112, Until Discontinu ed, Routine, Nausea and Vomiting (N/V) acetaminoph 2019-08 Yes 650mg 650 mg, Un piyush en 2-31 Oral, ity of (TYLENOL) 03:11: Q6HPRN, [place] tablet 650 56 Starting Medic al mg Wed Branch 08/22/20 at 2111, Until Discontinu ed, Routine, Pain (scale 1-3) NaCl 0.9% 2019-08- No 1000mL at 999 Uni vers (NS) bolus 2-30 12-31 mL/hr, ity of infusion 21:45: 00:21 1,000 mL, [place] 1,000 mL 00 :00 IV Medical Infusion, Branch ONCE, 1 dose, 08/22/20 at 1545, JOÃO iohexol 2019-08 No 100mL 100 mL, Unive rs (OMNIPAQUE 09-09 Intravenou it y of 350 00:30: 00:14 s, ONCE, 1 [place] BULK-100 00 :00 dose, Mon Medica l mL) 07/09/20 Branch injection at 1830, 100 mL Routine cefTRIAXone 2019-08 No 1000mg 1,000 mg, Univers (ROCEPHIN) 09-08 IV ity of 1,000 mg in 23:30: 00:58 Piggyback, [place] NaCl 0.9% 00 :00 ONCE, 1 Medical (NS) 50 mL dose, [facility] MINI-BAG 07/09/20 at 1730, 50 mL
Reas on for Anti-Infec tive: Documented Infection< br>Documen dain Infection Site: HEENT
D uration of Therapy: Other (see Comments) NaCl 0.9% 2019-08 No 1000mL at 999 Uni vers (NS) bolus -09 07-17 mL/hr, ity of infusion 22:45: 00:07 1,000 mL, [place] 1,000 mL 00 :00 IV Medical Infusion, Branch ONCE, 1 dose, [facility] 07/09/20 at 1645, JOÃO amoxicillin 2019-08 Yes [id number] 1{tbl} Take 1 Univers -clavulanat 1-16 tablet by ity of e 875-125 00:00: mouth [place] mg per 00 every 12 Medical tablet (twelve) Branch hours. amoxicillin 2019-08- No [id number] 1{tbl} Take 1 Univers -clavulanat 1-16 08-24 [...] of Therapy: 7 days ibuprofen 2019-08 Yes [id number] 800mg Take 1 U nivers 800 mg 0-08 tablet by ity of tablet 00:00: mouth [place] 00 every 6 Medical (six) Branch hours as needed for Pain (scale 4-6). loperamide 2019-08 Yes [id number] 4mg Take 2 U nivers 2 mg 0-08 capsules ity of capsule 00:00: [place] mouth 4 [place] (four) Medical times Branch daily. diphenoxyla 2019-08 Yes [id number] 1{tbl} Take 1 [facility] te-atropine 0-08 tablet by ity of 2.5-0.025 00:00: mouth [place] mg tablet 00 every 8 Medical (eight) Branch hours. psyllium 2019-08 Yes [id number] 3{packe Take 3 [facility] 3.4 gram 0-08 t} Packets by ity o f packet 00:00: mouth 3 [place] 00 (three) Medical times Branch daily. psyllium 2020-1 Yes [id number] 3{packe Take 3 [facility] 3.4 gram 0-08 t} Packets by ity o f packet 00:00: mouth 3 [place] 00 (three) Medical times Branch daily. diphenoxyla 2020-1 Yes [id number] 1{tbl} Take 1 [facility] te-atropine 0-08 tablet by ity of 2.5-0.025 00:00: mouth [place] mg tablet 00 every 8 Medical (eight) Branch hours. loperamide 2020-1 Yes [id number] 4mg Take 2 U nivers 2 mg 0-08 capsules ity of capsule 00:00: by mouth 4 [place] 00 (four) Medical times Branch daily. ibuprofen 2020- Yes [id number] 800mg Take 1 U nivers 800 mg 0-08 tablet by ity of tablet 00:00: mouth [place] 00 every 6 Medical (six) Branch hours as needed for Pain (scale 4-6). psyllium 2020-1 Yes [id number] 3{packe Take 3 Univers 3.4 gram 0-08 t} Packets by ity o f packet 00:00: mouth 3 00 (three) Medical times Branch daily. diphenoxyla 2020-1 Yes [id number] 1{tbl} Take 1 [facility] te-atropine 0-08 tablet by ity of 2.5-0.025 00:00: mouth [place] mg tablet 00 every 8 Medical (eight) Branch hours. loperamide 2020-1 Yes [id number] 4mg Take 2 U nivers 2 mg 0-08 capsules ity of capsule 00:00: by mouth 4 [place] 00 (four) Medical times Branch daily. ibuprofen 2020-1 Yes [id number] 800mg Take 1 U nivers 800 mg 0-08 tablet by ity of tablet 00:00: mouth [place] 00 every 6 Medical (six) Branch hours as needed for Pain (scale 4-6). psyllium 2020-1 Yes [id number] 3{packe Take 3 [facility] 3.4 gram 0-08 t} Packets by ity o f packet 00:00: mouth 3 [place] 00 (three) Medical times Branch daily. diphenoxyla 2020-1 Yes [id number] 1{tbl} Take 1 [facility] te-atropine 0-08 tablet by ity of 2.5-0.025 00:00: mouth [place] mg tablet 00 every 8 Medical (eight) Branch hours. loperamide 2020-1 Yes [id number] 4mg Take 2 U nivers 2 mg 0-08 capsules ity of capsule 00:00: by mouth 4 [place] 00 (four) Medical times Branch daily. ibuprofen 2019- Yes [id number] 800mg Take 1 U nivers 800 mg 0-08 tablet by ity of tablet 00:00: mouth [place] 00 every 6 Medical (six) Branch hours as needed for Pain (scale 4-6). psyllium 2020- Yes [id number] 3{packe Take 3 [facility] 3.4 gram 0-08 t} Packets by ity o f packet 00:00: mouth 3 [place] 00 (three) Medical times Branch daily. diphenoxyla 2020- Yes [id number] 1{tbl} Take 1 [facility] te-atropine 0-08 tablet by ity of 2.5-0.025 00:00: mouth [place] mg tablet 00 every 8 Medical (eight) Branch hours. loperamide 2019- Yes [id number] 4mg Take 2 U nivers 2 mg 0-08 capsules ity of capsule 00:00: by mouth 4 [place] 00 (four) Medical times Branch daily. ibuprofen 2019- Yes [id number] 800mg Take 1 U nivers 800 mg 0-08 tablet by ity of tablet 00:00: mouth [place] 00 every 6 Medical (six) Branch hours as needed for Pain (scale 4-6). psyllium 2020-1 Yes [id number] 3{packe Take 3 [facility] 3.4 gram 0-08 t} Packets by ity o f packet 00:00: mouth 3 [place] 00 (three) Medical times Branch daily. diphenoxyla 2020- Yes [id number] 1{tbl} Take 1 [facility] te-atropine 0-08 tablet by ity of 2.5-0.025 00:00: mouth [place] mg tablet 00 every 8 Medical (eight) Branch hours. loperamide 2020- Yes [id number] 4mg Take 2 U nivers 2 mg 0-08 capsules ity of capsule 00:00: by mouth 4 [place] 00 (four) Medical times Branch daily. ibuprofen 2019-1 Yes [id number] 800mg Take 1 U nivers 800 mg 0-08 tablet by ity of tablet 00:00: mouth [place] 00 every 6 Medical (six) Branch hours as needed for Pain (scale 4-6). psyllium 2020-1 Yes [id number] 3{packe Take 3 [facility] 3.4 gram 0-08 t} Packets by ity o f packet 00:00: mouth 3 [place] 00 (three) Medical times Branch daily. diphenoxyla 2020- Yes [id number] 1{tbl} Take 1 [facility] te-atropine 0-08 tablet by ity of 2.5-0.025 00:00: mouth [place] mg tablet 00 every 8 Medical (eight) Branch hours. loperamide 2020- Yes [id number] 4mg Take 2 U nivers 2 mg 0-08 capsules ity of capsule 00:00: by mouth 4 [place] 00 (four) Medical times Branch daily. ibuprofen 2020- Yes [id number] 800mg Take 1 U nivers 800 mg 0-08 tablet by ity of tablet 00:00: mouth [place] 00 every 6 Medical (six) Branch hours as needed for Pain (scale 4-6). psyllium 2020- Yes [id number] 3{packe Take 3 [facility] 3.4 gram 0-08 t} Packets by ity o f packet 00:00: mouth 3 [place] 00 (three) Medical times Branch daily. diphenoxyla 2020- Yes [id number] 1{tbl} Take 1 [facility] te-atropine 0-08 tablet by ity of 2.5-0.025 00:00: mouth [place] mg tablet 00 every 8 Medical (eight) Branch hours. loperamide 2020- Yes [id number] 4mg Take 2 U nivers 2 mg 0-08 capsules ity of capsule 00:00: by mouth 4 [place] 00 (four) Medical times Branch daily. ibuprofen 2020- Yes [id number] 800mg Take 1 U nivers 800 mg 0-08 tablet by ity of tablet 00:00: mouth [place] 00 every 6 Medical (six) Branch hours as needed for Pain (scale 4-6). psyllium 2020- Yes [id number] 3{packe Take 3 [facility] 3.4 gram 0-08 t} Packets by ity o f packet 00:00: mouth 3 [place] 00 (three) Medical times Branch daily. diphenoxyla 2020-1 Yes [id number] 1{tbl} Take 1 [facility] te-atropine 0-08 tablet by ity of 2.5-0.025 00:00: mouth [place] mg tablet 00 every 8 Medical (eight) Branch hours. loperamide 2020-1 Yes [id number] 4mg Take 2 U nivers 2 mg 0-08 capsules ity of capsule 00:00: by mouth 4 [place] 00 (four) Medical times Branch daily. ibuprofen 2020-1 Yes [id number] 800mg Take 1 U nivers 800 mg 0-08 tablet by ity of tablet 00:00: mouth [place] 00 every 6 Medical (six) Branch hours as needed for Pain (scale 4-6). psyllium 2020-1 Yes [id number] 3{packe Take 3 [facility] 3.4 gram 0-08 t} Packets by ity o f packet 00:00: mouth 3 [place] 00 (three) Medical times Branch daily. diphenoxyla 2020-1 Yes [id number] 1{tbl} Take 1 [facility] te-atropine 0-08 tablet by ity of 2.5-0.025 00:00: mouth [place] mg tablet 00 every 8 Medical (eight) Branch hours. loperamide 2020-1 Yes [id number] 4mg Take 2 U nivers 2 mg 0-08 capsules ity of capsule 00:00: by mouth 4 [place] 00 (four) Medical times Branch daily. ibuprofen 2020-1 Yes [id number] 800mg Take 1 U nivers 800 mg 0-08 tablet by ity of tablet 00:00: mouth [place] 00 every 6 Medical (six) Branch hours as needed for Pain (scale 4-6). psyllium 2020-1 Yes [id number] 3{packe Take 3 [facility] 3.4 gram 0-08 t} Packets by ity o f packet 00:00: mouth 3 [place] 00 (three) Medical times Branch daily. diphenoxyla 2020-1 Yes [id number] 1{tbl} Take 1 [facility] te-atropine 0-08 tablet by ity of 2.5-0.025 00:00: mouth [place] mg tablet 00 every 8 Medical (eight) Branch hours. loperamide 2020-1 Yes [id number] 4mg Take 2 U nivers 2 mg 0-08 capsules ity of capsule 00:00: by mouth 4 [place] 00 (four) Medical times Branch daily. ibuprofen 2020-1 Yes [id number] 800mg Take 1 U nivers 800 mg 0-08 tablet by ity of tablet 00:00: mouth [place] 00 every 6 Medical (six) Branch hours as needed for Pain (scale 4-6). psyllium 2020-1 Yes [id number] 3{packe Take 3 [facility] 3.4 gram 0-08 t} Packets by ity o f packet 00:00: mouth 3 [place] 00 (three) Medical times Branch daily. diphenoxyla 2020-1 Yes [id number] 1{tbl} Take 1 [facility] te-atropine 0-08 tablet by ity of 2.5-0.025 00:00: mouth [place] mg tablet 00 every 8 Medical (eight) Branch hours. loperamide 2020- Yes [id number] 4mg Take 2 U nivers 2 mg 0-08 capsules ity of capsule 00:00: by mouth 4 [place] 00 (four) Medical times Branch daily. ibuprofen 2020- Yes [id number] 800mg Take 1 U nivers 800 mg 0-08 tablet by ity of tablet 00:00: mouth [place] 00 every 6 Medical (six) Branch hours as needed for Pain (scale 4-6). psyllium 2020-1 Yes [id number] 3{packe Take 3 [facility] 3.4 gram 0-08 t} Packets by ity o f packet 00:00: mouth 3 [place] 00 (three) Medical times Branch daily. diphenoxyla 2020-1 Yes [id number] 1{tbl} Take 1 [facility] te-atropine 0-08 tablet by ity of 2.5-0.025 00:00: mouth [place] mg tablet 00 every 8 Medical (eight) Branch hours. loperamide 2020-1 Yes [id number] 4mg Take 2 U nivers 2 mg 0-08 capsules ity of capsule 00:00: by mouth 4 [place] 00 (four) Medical times Branch daily. ibuprofen 2020-1 Yes [id number] 800mg Take 1 U nivers 800 mg 0-08 tablet by ity of tablet 00:00: mouth [place] 00 every 6 Medical (six) Branch hours as needed for Pain (scale 4-6). psyllium 2020-1 Yes [id number] 3{packe Take 3 [facility] 3.4 gram 0-08 t} Packets by ity o f packet 00:00: mouth 3 [place] 00 (three) Medical times Branch daily. diphenoxyla 2019-08 Yes [id number] 1{tbl} Take 1 Univers te-atropine 0-08 tablet by ity of 2.5-0.025 00:00: mouth [place] mg tablet 00 every 8 Medical (eight) Branch hours. loperamide 2019-08 Yes [id number] 4mg Take 2 U nivers 2 mg 0-08 capsules ity of capsule 00:00: by mouth 4 [place] 00 (four) Medical times Branch daily. ibuprofen 2019-08 Yes [id number] 800mg Take 1 U nivers 800 mg 0-08 tablet by ity of tablet 00:00: mouth [place] 00 every 6 Medical (six) Branch hours as needed for Pain (scale 4-6). acetaminoph 2019-08- No [id number] 650mg Take 2 Univers en 325 mg 0-08 10-09 tablets by ity of tablet 00:00: 04:59 mouth [place] 00 :00 every 6 Medical (six) Branch hours as needed for Pain (scale 1-3). acetaminoph 2019-08- No [id number] 650mg Take 2 Univers en 325 mg 0-08 10-09 tablets by ity of tablet 00:00: 04:59 mouth [place] 00 :00 every 6 Medical (six) Branch hours as needed for Pain (scale 1-3). acetaminoph 2019-08- No [id number] 650mg Take 2 Univers en 325 mg 0-08 10-09 tablets by ity of tablet 00:00: 04:59 mouth [place] 00 :00 every 6 Medical (six) Branch hours as needed for Pain (scale 1-3). acetaminoph 2019-08- No [id number] 650mg Take 2 [facility] en 325 mg 0-08 10-09 tablets by ity of tablet 00:00: 04:59 mouth [place] 00 :00 every 6 Medical (six) Branch hours as needed for Pain (scale 1-3). acetaminoph 2019-08- No [id number] 650mg Take 2 Univers en 325 mg 0-08 10-09 tablets by ity of tablet 00:00: 04:59 mouth [place] 00 :00 every 6 Medical (six) Branch hours as needed for Pain (scale 1-3). acetaminoph 2019-08- No [id number] 650mg Take 2 Univers en 325 mg 0-08 10-09 tablets by ity of tablet 00:00: 04:59 mouth [place] 00 :00 every 6 Medical (six) Branch hours as needed for Pain (scale 1-3). acetamino 2019-08 No [id number] 650mg Take 2 Univers en 325 mg 0-08 10-09 tablets by ity of tablet 00:00: 04:59 mouth [place] 00 :00 every 6 Medical (six) Branch hours as needed for Pain (scale 1-3). acetamino 2019-08 No [id number] 650mg Take 2 Univers en 325 mg 0-08 10-09 tablets by ity of tablet 00:00: 04:59 mouth [place] 00 :00 every 6 Medical (six) Branch hours as needed for Pain (scale 1-3). acetamino 2019-08 No [id number] 650mg Take 2 Univers en 325 mg 0-08 10-09 tablets by ity of tablet 00:00: 04:59 mouth [place] 00 :00 every 6 Medical (six) Branch hours as needed for Pain (scale 1-3). acetamino 2019-08 No [id number] 650mg Take 2 Univers en 325 mg 0-08 10-09 tablets by ity of tablet 00:00: 04:59 mouth [place] 00 :00 every 6 Medical (six) Branch hours as needed for Pain (scale 1-3). acetamino 2019-08- No [id number] 650mg Take 2 Univers en 325 mg 0-08 10-09 tablets by ity of tablet 00:00: 04:59 mouth [place] 00 :00 every 6 Medical (six) Branch hours as needed for Pain (scale 1-3). acetamino 2019-08 No [id number] 650mg Take 2 Univers en 325 mg 0-08 10-09 tablets by ity of tablet 00:00: 04:59 mouth [place] 00 :00 every 6 Medical (six) Branch hours as needed for Pain (scale 1-3). acetamino 2019-08 No [id number] 650mg Take 2 Univers en 325 mg 0-08 10-09 tablets by ity of tablet 00:00: 04:59 mouth [place] 00 :00 every 6 Medical (six) Branch hours as needed for Pain (scale 1-3). acetaminoph 2019-08 No [id number] 650mg Take 2 Univers en 325 mg 0-08 10-09 tablets by ity of tablet 00:00: 04:59 mouth [place] 00 :00 every 6 Medical (six) Branch hours as needed for Pain (scale 1-3). psyllium 2019-08 No [id number] 3{packe Take 3 Univers 3.4 gram 0-08 09-16 t} Packets by ity of packet 00:00: 00:00 mouth 3 [place] 00 :00 (three) Medical times Branch daily. diphenoxyla 2019-08 No [id number] 1{tbl} Take 1 Univers te-atropine 0-08 09-16 tablet by it y of 2.5-0.025 00:00: 00:00 mouth [place] mg tablet 00 :00 every 8 Medical (eight) Branch hours. loperamide 2019-08 No [id number] 4mg Take 2 Univers 2 mg 0-08 09-16 capsules ity of capsule 00:00: 00:00 by mouth 4 [place] 00 :00 (four) Medical times Branch daily. ibuprofen 2019-08 No [id number] 800mg Take 1 [facility] 800 mg 0-08 09-16 tablet by ity of tablet 00:00: 00:00 mouth [place] 00 :00 every 6 Medical (six) Branch hours as needed for Pain (scale 4-6). acetaminoph 2019-08 No [id number] 650mg Take 2 Univers en 325 mg 0-08 09-16 tablets by ity of tablet 00:00: 00:00 mouth [place] 00 :00 every 6 Medical (six) Branch hours as needed for Pain (scale 1-3). psyllium 2019-08 No [id number] 3{packe Take 3 Univers 3.4 gram 0-08 09-16 t} Packets by ity of packet 00:00: 00:00 mouth 3 [place] 00 :00 (three) Medical times Branch daily. diphenoxyla 2019-08 No [id number] 1{tbl} Take 1 [facility] te-atropine 0-08 09-16 tablet by it y of 2.5-0.025 00:00: 00:00 mouth [place] mg tablet 00 :00 every 8 Medical (eight) Branch hours. loperamide 2019-08 [id number] 4mg Take 2 [facility] 2 mg 0-08 09-16 capsules ity of capsule 00:00: 00:00 by mouth 4 [place] 00 :00 (four) Medical times Branch daily. ibuprofen 2019-08 [id number] 800mg Take 1 [facility] 800 mg 0-08 09-16 tablet by ity of tablet 00:00: 00:00 mouth [place] 00 :00 every 6 Medical (six) Branch hours as needed for Pain (scale 4-6). acetaminoph 2019-08 [id number] 650mg Take 2 Univers en 325 mg 0-08 09-16 tablets by ity of tablet 00:00: 00:00 mouth [place] 00 :00 every 6 Medical (six) Branch hours as needed for Pain (scale 1-3). acetaminoph 2019-08 [id number] 650mg Take 2 Univers en 325 mg 0-08 10-08 tablets by ity of tablet 00:00: 00:00 mouth [place] 00 :00 every 6 Medical (six) Branch hours as needed for Pain (scale 1-3). ibuprofen 2019-08 [id number] 800mg Take 1 [facility] 800 mg 0-08 10-08 tablet by ity of tablet 00:00: 00:00 mouth [place] 00 :00 every 6 Medical (six) Branch hours as needed for Pain (scale 4-6). loperamide 2019-08 [id number] 4mg Take 2 Univers 2 mg 0-08 10-08 capsules ity of capsule 00:00: 00:00 by mouth 4 [place] 00 :00 (four) Medical times Branch daily. diphenoxyla 2019-08 No [id number] 1{tbl} Take 1 Univers te-atropine 0-08 10-08 tablet by it y of 2.5-0.025 00:00: 00:00 mouth [place] mg tablet 00 :00 every 8 Medical (eight) Branch hours. psyllium 2019-08 No [id number] 3{packe Take 3 Univers 3.4 gram 0-08 10-08 t} Packets by ity of packet 00:00: 00:00 mouth 3 [place] 00 :00 (three) Medical times Branch daily. iohexoL 2019-08- No 50mL 50 mL, Univers (OMNIPAQUE 0-07 10-07 Injection, it y of 300-50 mL)) 19:00: 18:59 ONCE, 1 [place] injection 00 :00 dose, Wed Medic al 50 mL 05/30/20 at Branch 1400, Routine diphenoxyla 2020- Yes 1{tbl} 1 tablet, [facility] te-atropine 0-06 Oral, Q8H, it y of (LOMOTIL) 14:00: First dose [place] 2.5-0.025 00 on Thu Medical mg tablet 1 05/29/20 at [place] tablet 0900, Until Discontinu ed, Routine psyllium 2020- Yes 3{packe 3 Packet, U nivers (METAMUCIL [...] Medi mariusz (8 %) IV 05/29/20 at [facility] Piggyback 4 0730, g Routine magnesium 2020- 2020- No 2g 2 g, IV Univ ers sulfate in 0-05 10-05 Piggyback, it y of water 2 13:30: 13:20 ONCE, 1 [place] gram/50 mL 00 :00 dose, Mon Medi mariusz (4 %) 05/28/20 at [place] infusion 2 0830, g Routine loperamide 2019- [...] on Sun Medical 3.4 gram 05/27/20 at [facility] packet 1 1999, Packet Until Discontinu [...] Medi mariusz (8 %) IV 05/24/20 at Branc h Piggyback 4 1715, g Routine iohexoL 2020- 2020- No 50mL 50 mL, Univers (OMNIPAQUE [...] dose, Thu Medica l mL) 05/23/20 at [place] injection 1015, 100 mL Routine docusate 2019- [...] 00 :16 dose on Medica l mg [facility] Branch 05/22/20 at 2330, Until Discontinu ed, JOÃO
Re ason for Anti-Infec tive: Documented Infection< br>Documen dain Infection Site: Abdominal< br>Duratio n of Therapy: 7 days ondansetron 2020-0 Yes 4mg 4 mg, Slow [facility] (ZOFRAN -30 IV Push, ity of (PF)) 03:15: Administer [place] injection 4 50 over 15 Medic al mg Minutes, Branch Q8HPRN, Starting [facility] 05/22/20 at 2215, Until Discontinu ed, Routine, Nausea and Vomiting (N/V) D5W 0.45% 2020-0 Yes IV [facility] NaCl 05-23 Infusion, ity of (1/2NS) 1 L 03:15: at 50 [place] + KCL 20 00 mL/hr, Medical mEq CONTINUOUS Branch , Starting [facility] 05/22/20 at 2230, Until Discontinu ed, Routine ibuprofen 2020-0 Yes 800mg 800 mg, Univ ers (IBU) 05-23 Oral, ity of tablet 800 03:13: Q6HPRN, [place] mg 38 Starting Medical [facility] Branch 05/22/20 at 2213, Until Discontinu ed, Routine, Pain (scale 4-6) acetaminoph 2020-0 Yes 650mg 650 mg, Un piyush en 05-23 Oral, ity of (TYLENOL) 03:13: Q6HPRN, [place] tablet 650 36 Starting Medic al mg [facility] 05/22/20 at 2213, Until Discontinu ed, Routine, Pain (scale 1-3) morpHINE 2020-0 2020- No 4mg 4 mg, Slow Un piyush injection 4 05-22 IV Push, ity of mg 03:30: 03:13 ONCE, 1 [place] 00 :00 dose, [facility] 05/21/20 at Branch 2230, STAT piperacilli 2020-0 2020- No 3.375g 3.375 g, Univers n-tazobacta 05-20 IV ity of m (ZOSYN) 10:15: 22:14 Pig[place]back, [place] 3.375 g in 00 :00 ONCE, 1 Medica l NaCl 0.9% dose, [facility] h (NS) 100 mL 05/20/20 at MINI-BAG 0515, 100 mL
Reas on for Anti-Infec tive: Documented Infection< br>Documen dain Infection Site: Abdominal< br>Duratio n of Therapy: 7 days iohexol 2020- No 100mL 100 mL, Unive rs [...] mg 05/19/20 at Branch 2245, JOÃO morpHINE 2020- No 4mg 4 mg, Slow Un piyush injection 4 05-20 IV Push, ity of mg 03:45: 03:36 ONCE, 1 [place] 00 :00 dose, Sat Medical 05/19/20 at Branch 2245, STAT NaCl 0.9% 2020- No 1000mL at 999 Uni vers (NS) bolus 05-20 mL/hr, ity of infusion 03:45: 11:13 1,000 mL, [place] 1,000 mL 00 :00 IV Medical Piggyback, [place] ONCE, 1 dose, 05/19/20 at 2245, STAT ibuprofen 2019-0 Yes [id number] 800mg Take 1 U nivers 800 mg 9-18 tablet by ity of tablet 00:00: mouth [place] 00 every 6 Medical (six) Branch hours as needed for Pain (scale 4-6). levoFLOXaci 2020-0 Yes [id number] 750mg Take 1 Univers n 750 mg 9-18 tablet by ity of tablet 00:00: mouth [place] 00 every 24 Medical (twenty-fo Branch ur) hours. loperamide 2019-0 Yes [id number] 2mg Take 1 U nivers 2 mg 9-18 capsule by ity of capsule 00:00: mouth [place] 00 daily. Medical Branch ibuprofen 2020-0 Yes [id number] 800mg Take 1 U nivers 800 mg 9-18 tablet by ity of tablet 00:00: mouth [place] 00 every 6 Medical (six) Branch hours as needed for Pain (scale 4-6). levoFLOXaci 2020-0 Yes [id number] 750mg Take 1 Univers n 750 mg 9-18 tablet by ity of tablet 00:00: mouth [place] 00 every 24 Medical (twenty-fo Branch ur) hours. loperamide 2020-0 Yes [id number] 2mg Take 1 U nivers 2 mg 9-18 capsule by ity of capsule 00:00: mouth [place] 00 daily. Medical Branch ibuprofen 2020-0 Yes [id number] 800mg Take 1 U nivers 800 mg 9-18 tablet by ity of tablet 00:00: mouth [place] 00 every 6 Medical (six) Branch hours as needed for Pain (scale 4-6). levoFLOXaci 2020-0 Yes [id number] 750mg Take 1 Univers n 750 mg 9-18 tablet by ity of tablet 00:00: mouth [place] 00 every 24 Medical (twenty-fo Branch ur) hours. loperamide 2020-0 Yes [id number] 2mg Take 1 U nivers 2 mg 9-18 capsule by ity of capsule 00:00: mouth [place] 00 daily. Medical Branch ibuprofen 2020-0 Yes [id number] 800mg Take 1 U nivers 800 mg 9-18 tablet by ity of tablet 00:00: mouth [place] 00 every 6 Medical (six) Branch hours as needed for Pain (scale 4-6). levoFLOXaci 2020-0 Yes [id number] 750mg Take 1 Univers n 750 mg 9-18 tablet by ity of tablet 00:00: mouth [place] 00 every 24 Medical (twenty-fo Branch ur) hours. loperamide 2020-0 Yes [id number] 2mg Take 1 U nivers 2 mg 9-18 capsule by ity of capsule 00:00: mouth [place] 00 daily. Medical Branch ibuprofen 2020-0 Yes [id number] 800mg Take 1 U nivers 800 mg 9-18 tablet by ity of tablet 00:00: mouth [place] 00 every 6 Medical (six) Branch hours as needed for Pain (scale 4-6). levoFLOXaci 2020-0 Yes [id number] 750mg Take 1 Univers n 750 mg 9-18 tablet by ity of tablet 00:00: mouth [place] 00 every 24 Medical (twenty-fo Branch ur) hours. loperamide 2020-0 Yes [id number] 2mg Take 1 U nivers 2 mg 9-18 capsule by ity of capsule 00:00: mouth [place] 00 daily. Medical Branch ibuprofen 2020-0 Yes [id number] 800mg Take 1 U nivers 800 mg 9-18 tablet by ity of tablet 00:00: mouth [place] 00 every 6 Medical (six) Branch hours as needed for Pain (scale 4-6). levoFLOXaci 2020-0 Yes [id number] 750mg Take 1 Univers n 750 mg 9-18 tablet by ity of tablet 00:00: mouth [place] 00 every 24 Medical (twenty-fo Branch ur) hours. loperamide 2020-0 Yes [id number] 2mg Take 1 U nivers 2 mg 9-18 capsule by ity of capsule 00:00: mouth [place] 00 daily. Medical Branch ibuprofen 2020-0 Yes [id number] 800mg Take 1 U nivers 800 mg 9-18 tablet by ity of tablet 00:00: mouth [place] 00 every 6 Medical (six) Branch hours as needed for Pain (scale 4-6). levoFLOXaci 2020-0 Yes [id number] 750mg Take 1 Univers n 750 mg 9-18 tablet by ity of tablet 00:00: mouth [place] 00 every 24 Medical (twenty-fo Branch ur) hours. loperamide 2020-0 Yes [id number] 2mg Take 1 U nivers 2 mg 9-18 capsule by ity of capsule 00:00: mouth [place] 00 daily. Medical Branch ibuprofen 2020-0 Yes [id number] 800mg Take 1 U nivers 800 mg 9-18 tablet by ity of tablet 00:00: mouth [place] 00 every 6 Medical (six) Branch hours as needed for Pain (scale 4-6). levoFLOXaci 2020-0 Yes [id number] 750mg Take 1 Univers n 750 mg 9-18 tablet by ity of tablet 00:00: mouth [place] 00 every 24 Medical (twenty-fo Branch ur) hours. loperamide 2020-0 Yes [id number] 2mg Take 1 U nivers 2 mg 9-18 capsule by ity of capsule 00:00: mouth [place] 00 daily. Medical Branch ibuprofen 2020-0 Yes [id number] 800mg Take 1 U nivers 800 mg 9-18 tablet by ity of tablet 00:00: mouth [place] 00 every 6 Medical (six) Branch hours as needed for Pain (scale 4-6). levoFLOXaci 2020-0 Yes [id number] 750mg Take 1 Univers n 750 mg 9-18 tablet by ity of tablet 00:00: mouth [place] 00 every 24 Medical (twenty-fo Branch ur) hours. loperamide 2020-0 Yes [id number] 2mg Take 1 U nivers 2 mg 9-18 capsule by ity of capsule 00:00: mouth [place] 00 daily. Medical Branch ibuprofen 2020-0 Yes [id number] 800mg Take 1 U nivers 800 mg 9-18 tablet by ity of tablet 00:00: mouth [place] 00 every 6 Medical (six) Branch hours as needed for Pain (scale 4-6). levoFLOXaci 2020-0 Yes [id number] 750mg Take 1 Univers n 750 mg 9-18 tablet by ity of tablet 00:00: mouth [place] 00 every 24 Medical (twenty-fo Branch ur) hours. loperamide 2020-0 Yes [id number] 2mg Take 1 U nivers 2 mg 9-18 capsule by ity of capsule 00:00: mouth [place] 00 daily. Medical Branch ibuprofen 2020-0 Yes [id number] 800mg Take 1 U nivers 800 mg 9-18 tablet by ity of tablet 00:00: mouth [place] 00 every 6 Medical (six) Branch hours as needed for Pain (scale 4-6). levoFLOXaci 2020-0 Yes [id number] 750mg Take 1 Univers n 750 mg 9-18 tablet by ity of tablet 00:00: mouth [place] 00 every 24 Medical (twenty-fo Branch ur) hours. loperamide 2020-0 Yes [id number] 2mg Take 1 U nivers 2 mg 9-18 capsule by ity of capsule 00:00: mouth [place] 00 daily. Medical Branch ibuprofen 2020-0 Yes [id number] 800mg Take 1 U nivers 800 mg 9-18 tablet by ity of tablet 00:00: mouth [place] 00 every 6 Medical (six) Branch hours as needed for Pain (scale 4-6). levoFLOXaci 2020-0 Yes [id number] 750mg Take 1 Univers n 750 mg 9-18 tablet by ity of tablet 00:00: mouth [place] 00 every 24 Medical (twenty-fo Branch ur) hours. loperamide 2020-0 Yes [id number] 2mg Take 1 U nivers 2 mg 9-18 capsule by ity of capsule 00:00: mouth [place] 00 daily. Medical Branch ibuprofen 2020-0 Yes [id number] 800mg Take 1 U nivers 800 mg 9-18 tablet by ity of tablet 00:00: mouth [place] 00 every 6 Medical (six) Branch hours as needed for Pain (scale 4-6). levoFLOXaci 2019-0 Yes [id number] 750mg Take 1 Univers n 750 mg 9-18 tablet by ity of tablet 00:00: mouth [place] 00 every 24 Medical (twenty-fo Branch ur) hours. loperamide 2019-0 Yes [id number] 2mg Take 1 U nivers 2 mg 9-18 capsule by ity of capsule 00:00: mouth [place] 00 daily. Medical Branch acetaminoph 2020- No [id number] 650mg Take 2 Univers en 325 mg 9-18 09-19 tablets by ity of tablet 00:00: 04:59 mouth [place] 00 :00 every 6 Medical (six) Branch hours as needed for Pain (scale 1-3). acetaminoph 2020- No [id number] 650mg Take 2 Univers en 325 mg 9-18 09-19 tablets by ity of tablet 00:00: 04:59 mouth [place] 00 :00 every 6 Medical (six) Branch hours as needed for Pain (scale 1-3). acetaminoph 2020- No [id number] 650mg Take 2 Univers en 325 mg 9-18 09-19 tablets by ity of tablet 00:00: 04:59 mouth [place] 00 :00 every 6 Medical (six) Branch hours as needed for Pain (scale 1-3). acetaminoph 2020- No [id number] 650mg Take 2 Univers en 325 mg 9-18 09-19 tablets by ity of tablet 00:00: 04:59 mouth [place] 00 :00 every 6 Medical (six) Branch hours as needed for Pain (scale 1-3). acetaminoph 2020- No [id number] 650mg Take 2 Univers en 325 mg 9-18 09-19 tablets by ity of tablet 00:00: 04:59 mouth [place] 00 :00 every 6 Medical (six) Branch hours as needed for Pain (scale 1-3). acetaminoph 2020- No [id number] 650mg Take 2 Univers en 325 mg 9-18 09-19 tablets by ity of tablet 00:00: 04:59 mouth [place] 00 :00 every 6 Medical (six) Branch hours as needed for Pain (scale 1-3). acetaminoph No [id number] 650mg Take 2 Univers en 325 mg 9-18 09-19 tablets by ity of tablet 00:00: 04:59 mouth [place] 00 :00 every 6 Medical (six) Branch hours as needed for Pain (scale 1-3). acetaminoph No [id number] 650mg Take 2 Univers en 325 mg 9-18 09-19 tablets by ity of tablet 00:00: 04:59 mouth [place] 00 :00 every 6 Medical (six) Branch hours as needed for Pain (scale 1-3). acetaminoph No [id number] 650mg Take 2 Univers en 325 mg 9-18 09-19 tablets by ity of tablet 00:00: 04:59 mouth [place] 00 :00 every 6 Medical (six) Branch hours as needed for Pain (scale 1-3). acetaminoph No [id number] 650mg Take 2 Univers en 325 mg 9-18 09-19 tablets by ity of tablet 00:00: 04:59 mouth [place] 00 :00 every 6 Medical (six) Branch hours as needed for Pain (scale 1-3). acetaminoph No [id number] 650mg Take 2 Univers en 325 mg 9-18 09-19 tablets by ity of tablet 00:00: 04:59 mouth [place] 00 :00 every 6 Medical (six) Branch hours as needed for Pain (scale 1-3). acetaminoph No [id number] 650mg Take 2 Univers en 325 mg 9-18 09-19 tablets by ity of tablet 00:00: 04:59 mouth [place] 00 :00 every 6 Medical (six) Branch hours as needed for Pain (scale 1-3). acetaminoph No [id number] 650mg Take 2 Univers en 325 mg 9-18 09-19 tablets by ity of tablet 00:00: 04:59 mouth [place] 00 :00 every 6 Medical (six) Branch hours as needed for Pain (scale 1-3). acetaminoph No [id number] 650mg Take 2 Univers en 325 mg 9-18 10-08 tablets by ity of tablet 00:00: 00:00 mouth [place] 00 :00 every 6 Medical (six) Branch hours as needed for Pain (scale 1-3). ibuprofen 2019-2019- No [id number] 800mg Take 1 [facility] 800 mg 9-18 10-08 tablet by ity of tablet 00:00: 00:00 mouth [place] 00 :00 every 6 Medical (six) Branch hours as needed for Pain (scale 4-6). levoFLOXaci 2019-2019- No [id number] 750mg Take 1 Univers n 750 mg 9-18 10-08 tablet by ity o f tablet 00:00: 00:00 mouth [place] 00 :00 every 24 Medical (twenty-fo Branch ur) hours. loperamide 2019-2019- No [id number] 2mg Take 1 Univers 2 mg 9-18 [...] br>Duratio n of Therapy: 14 days magnesium 2019- 2020- No 4g 4 g, [...] lactated 2020-0 2020- No 1000mL at 999 [facility] ers ringers IV 05-07 mL/hr, ity of infusion 22:15: 22:21 1,000 mL, [place] 1,000 mL 00 :00 Intravenou Medic al s, ONCE, 1 Branch dose, [facility] 05/07/20 at 1715, Routine lactated 2020-0 2020- No 1000mL at 999 [facility] ers ringers IV 05-07 mL/hr, ity of infusion 13:15: 14:09 1,000 mL, [place] 1,000 mL 00 :00 Intravenou Medic al s, ONCE, 1 Branch dose, [facility] 05/07/20 at 0815, Routine HYDROcodone 2019-0 Yes 1{tbl} 1 tablet, Univers -acetaminop 05-07 Oral, ity of hen (NORCO 13:00: Q6HPRN, [place] 5) 5-325 mg 00 Starting Medi mariusz tablet 1 Mon Branch tablet 05/07/20 at 0800, Until Discontinu ed, Routine, Pain (scale 4-6) magnesium 2019-0 2020- No 2g 2 g, IV [facility] ers sulfate in 05-07 Piggyback, it y of water 2 13:00: 15:10 ONCE, 1 [place] gram/50 mL 00 :00 dose, Mon Medi mariusz (4 %) 05/07/20 at [place] infusion 2 0800, g Routine ibuprofen 2019-0 Yes 800mg 800 mg, [facility] ers (IBU) 05-07 Oral, ity of tablet 800 12:45: Q6HPRN, [place] mg 22 Starting Medical [facility] 05/07/20 at 0745, Until Discontinu ed, Routine, Pain (scale 4-6) FENTanyl PF 2019-0 2020- No Slow IV Un piyush (SUBLIMAZE 05-05 Push, PRN, it y of (PF)) 18:53: 20:05 Starting [place] injection 39 :03 [facility] Medical 05/05/20 at Branch 1353, Until Discontinu ed, Routine lidocaine 2019-0 2020- No PRN, Univers 1% (PF) 05-05 Starting ity of (XYLOCAINE) 18:26: 18:26 [facility] [place] injection 34 :34 05/05/20 at [facility] mariusz 1326, Branch Until Discontinu ed, Routine NaCl [...] 0430, Until 05/06/20 at 0901, Routine metroNIDAZO 2020- No 500mg 500 mg, IV Univers LE in NaCl 05-05 Infusion, ity of (iso-os) 07:30: 16:36 Q8H ABX, [place] (FLAGYL 00 :33 First dose Medica l I.V.) RTU on [facility] IV infusion 05/05/20 at 500 mg [...] Indication s: acute pain ibuprofen 2020-0 Yes [id number] 400mg Take 2 Univers 200 mg 9-08 tablets by ity of tablet 00:00: mouth [place] 00 every 6 Medical (six) Branch hours as needed for Pain (scale 1-3). ibuprofen 2020-0 Yes [id number] 400mg Take 2 Univers 200 mg 9-08 tablets by ity of tablet 00:00: mouth [place] 00 every 6 Medical (six) Branch hours as needed for Pain (scale 1-3). ibuprofen 2020-0 Yes [id number] 400mg Take 2 Univers 200 mg 9-08 tablets by ity of tablet 00:00: mouth [place] 00 every 6 Medical (six) Branch hours as needed for Pain (scale 1-3). ibuprofen 2020-0 Yes [id number] 400mg Take 2 Univers 200 mg 9-08 tablets by ity of tablet 00:00: mouth [place] 00 every 6 Medical (six) Branch hours as needed for Pain (scale 1-3). ibuprofen 2020-0 Yes [id number] 400mg Take 2 Univers 200 mg 9-08 tablets by ity of tablet 00:00: mouth [place] 00 every 6 Medical (six) Branch hours as needed for Pain (scale 1-3). ibuprofen 2020-0 Yes [id number] 400mg Take 2 Univers 200 mg 9-08 tablets by ity of tablet 00:00: mouth [place] 00 every 6 Medical (six) Branch hours as needed for Pain (scale 1-3). ibuprofen 2020-0 Yes [id number] 400mg Take 2 Univers 200 mg 9-08 tablets by ity of tablet 00:00: mouth [place] 00 every 6 Medical (six) Branch hours as needed for Pain (scale 1-3). acetaminoph 2020- No [id number] 650mg Take 2 Univers en 05-01- tablets by ity of (TYLENOL) 00:00: 04:59 mouth [place] 325 mg 00 :00 every 6 Medical tablet (six) Branch hours as needed for Pain (scale 4-6). acetaminoph 2020- No [id number] 650mg Take 2 Univers en 05-01 tablets by ity of (TYLENOL) 00:00: 04:59 mouth [place] 325 mg 00 :00 every 6 Medical tablet (six) Branch hours as needed for Pain (scale 4-6). acetaminoph 2020- No [id number] 650mg Take 2 Univers en 05-01 tablets by ity of (TYLENOL) 00:00: 04:59 mouth [place] 325 mg 00 :00 every 6 Medical tablet (six) Branch hours as needed for Pain (scale 4-6). acetaminoph No [id number] 650mg Take 2 Univers en 05-01 tablets by ity of (TYLENOL) 00:00: 04:59 mouth [place] 325 mg 00 :00 every 6 Medical tablet (six) Branch hours as needed for Pain (scale 4-6). acetaminoph 2020- No [id number] 650mg Take 2 Univers en 05-01 tablets by ity of (TYLENOL) 00:00: 04:59 mouth [place] 325 mg 00 :00 every 6 Medical tablet (six) Branch hours as needed for Pain (scale 4-6). acetaminoph 2020- No [id number] 650mg Take 2 Univers en 05-01 tablets by ity of (TYLENOL) 00:00: 04:59 mouth [place] 325 mg 00 :00 every 6 Medical tablet (six) Branch hours as needed for Pain (scale 4-6). acetaminoph 2020- No [id number] 650mg Take 2 Univers en 05-01 tablets by ity of (TYLENOL) 00:00: 04:59 mouth [place] 325 mg 00 :00 every 6 Medical tablet (six) Branch hours as needed for Pain (scale 4-6). ciprofloxac 2019- No [id number] 750mg Take 1 Univers in HCl 750 05-01 tablet by ity of mg tablet 00:00: 04:59 mouth [place] 00 :00 every 12 Medical (twelve) Branch hours for 14 days. amoxicillin 2019- No [id number] 1{tbl} Take 1 Univers -clavulanat 05-01 tablet by it y of e 00:00: 04:59 mouth 2 [place] (AUGMENTIN) 00 :00 (two) Medical 875-125 mg times Branch per tablet daily for 14 days. ciprofloxac 2019-2019- No [id number] 750mg Take 1 Univers in HCl 750 05-01 tablet by ity of mg tablet 00:00: 04:59 mouth [place] 00 :00 every 12 Medical (twelve) Branch hours for 14 days. amoxicillin 2019- No [id number] 1{tbl} Take 1 Univers -clavulanat 05-01 tablet by it y of e 00:00: 04:59 mouth 2 [place] (AUGMENTIN) 00 :00 (two) Medical 875-125 mg times Branch per tablet daily for 14 days. ciprofloxac 2019-2019- No [id number] 750mg Take 1 Univers in HCl 750 05-01 tablet by ity of mg tablet 00:00: 04:59 mouth [place] 00 :00 every 12 Medical (twelve) Branch hours for 14 days. amoxicillin 2019- No [id number] 1{tbl} Take 1 Univers -clavulanat 05-01 tablet by it y of e 00:00: 04:59 mouth 2 [place] (AUGMENTIN) 00 :00 (two) Medical 875-125 mg times Branch per tablet daily for 14 days. ciprofloxac 2019-2019- No [id number] 750mg Take 1 Univers in HCl 750 05-01 tablet by ity of mg tablet 00:00: 04:59 mouth [place] 00 :00 every 12 Medical (twelve) Branch hours for 14 days. amoxicillin 2019- No [id number] 1{tbl} Take 1 Univers -clavulanat 05-01 tablet by it y of e 00:00: 04:59 mouth 2 [place] (AUGMENTIN) 00 :00 (two) Medical 875-125 mg times Branch per tablet daily for 14 days. ciprofloxac 2019- 2020- No [id number] 750mg Take 1 Univers in HCl 750 05-01 tablet by ity of mg tablet 00:00: 04:59 mouth [place] 00 :00 every 12 Medical (twelve) Branch hours for 14 days. amoxicillin 2019- 2020- No [id number] 1{tbl} Take 1 Univers -clavulanat 05-01 tablet by it y of e 00:00: 04:59 mouth 2 [place] (AUGMENTIN) 00 :00 (two) Medical 875-125 mg times Branch per tablet daily for 14 days. ciprofloxac 2019-2019- No [id number] 750mg Take 1 Univers in HCl 750 05-01 tablet by ity of mg tablet 00:00: 04:59 mouth [place] 00 :00 every 12 Medical (twelve) Branch hours for 14 days. amoxicillin 2019-2019- No [id number] 1{tbl} Take 1 Univers -clavulanat 05-01 tablet by it y of e 00:00: 04:59 mouth 2 [place] (AUGMENTIN) 00 :00 (two) Medical 875-125 mg times Branch per tablet daily for 14 days. ciprofloxac 2019- 2020- No [id number] 750mg Take 1 Univers in HCl 750 05-01 tablet by ity of mg tablet 00:00: 04:59 mouth [place] 00 :00 every 12 Medical (twelve) Branch hours for 14 days. amoxicillin 2019-2019- No [id number] 1{tbl} Take 1 Univers -clavulanat 05-01 tablet by it y of e 00:00: 04:59 mouth 2 [place] (AUGMENTIN) 00 :00 (two) Medical 875-125 mg times Branch per tablet daily for 14 days. acetaminoph 2019- 2020- No [id number] 650mg Take 2 Univers en 05-01 tablets by ity of (TYLENOL) 00:00: 00:00 mouth [place] 325 mg 00 :00 every 6 Medical tablet (six) Branch hours as needed for Pain (scale 4-6). ibuprofen 2019- 2020- No [id number] 400mg Take 2 Univers 200 mg 05-01 tablets by ity of tablet 00:00: 00:00 mouth [place] 00 :00 every 6 Medical (six) Branch hours as needed for Pain (scale 1-3). ciprofloxac 2020-0 2020- No [id number] 750mg Take 1 Univers in HCl 750 05-01 tablet by ity of mg tablet 00:00: 00:00 mouth [place] 00 :00 every 12 Medical (twelve) Branch hours for 14 days. amoxicillin 2020-0 2020- No [id number] 1{tbl} Take 1 Univers -clavulanat 05-01 tablet [...] Branch dose, Thu04/25/20 at 0915, Routine amoxicillin 2020-0 Yes 1{tbl} [...] Until Thu04/24/20 at 1144, Routine NaCl 0.9% 2020- No 1000mL at [...] Br anch MINI-BAG (after last reorder) on [place] 04/22/20 at 0800, 100 mL
Rest ricted use approved by: [employer]OB [employer] P [employer]IT[employer]< br>Reason for Anti-Infec tive: Documented Infection< br>Documen dain Infection Site: Abdominal< br>Duratio n of Therapy: 7 days ciprofloxac 2019-0 Yes 750mg 750 mg, Un piyush in HCl 04-21 Oral, ity of (CIPRO) 23:00: Q12HA2, [place] tablet 750 00 First dose Med ical mg on [facility] 04/21/20 at 1800, Until Discontinu ed, JOÃO
Re ason for Anti-Infec tive: Documented Infection< br>Documen dain Infection Site: Abdominal< br>Duratio n of Therapy: 7 days aspirin 2019-0 Yes 81mg 81 mg, Univers chewable 04-21 Oral, ity of tablet 81 14:00: DAILY, [place] mg 00 First dose Medical on [facility] 04/21/20 at 0900, Until Discontinu ed, Routine multivitami 2019-0 Yes 1{tbl} 1 tablet, Univers n tablet 1 04-21 Oral, ity of tablet 14:00: DAILY, [place] 00 First dose Medical on Sat Branch 04/21/20 at 0900, Until Discontinu ed, Routine amoxicillin 2020- No 500mg 500 mg, U nivers -pot 04-21 Oral, TID, ity of clavulanate 13:00: 14:44 First dose [place] 500 mg 00 :32 on [facility] Medical (AUGMENTIN 04/21/20 at [facility] 500) 0800, 500-125 mg Until tablet 500 [...] 04-19 Oral, ity of (PROTONIX) 14:00: DAILY, [place] EC tablet 00 First dose Medi mariusz [...] Branch , Starting 04/18/20 at 1000, Until Thu04/19/20 at 1105, Routine ciprofloxac 2019- No 500mg 500 mg, U nivers in HCl 04-18 Oral, ity of (CIPRO) 01:45: 15:30 Q12HA2, [place] tablet 500 00 :34 First dose Med ical mg on Thu Branch 04/17/20 at 2045, Until Discontinu ed, [...] Q6HPRN, [place] mg 09 :33 Starting [facility] 04/17/20 at 1211, Until Thu04/20/20 at 1031, Routine, Pain (scale 4-6), Pain (scale 7-10) aspirin 2019- 2020- No 325mg 325 mg, Unive rs tablet 325 04-17 Oral, ity of mg 14:00: 15:33 DAILY, [place] 00 :03 First dose Medical on [facility] 04/17/20 at 0900, Until Discontinu ed, Routine lidocaine 2019- 2020- No PRN, Univers 1% (PF) 04-16 Starting ity of (XYLOCAINE) 21:17: 21:17 [facility] injection 53 :53 04/16/20 at [facility] 1617, Branch Until [facility] 04/16/20 at 1617, Routine FENTanyl PF 2020- No Slow IV Un piyush (SUBLIMAZE 04-16 Push, PRN, it y of (PF)) 21:16: 21:16 Starting [place] injection 07 :07 [facility] 04/16/20 at Branch 1616, Until [facility] 04/16/20 at 1616, Routine midazolam 2019- 2020- No IV Push, Uni vers (VERSED) 04-16 PRN, ity of injection 21:16: 21:16 Starting [place] 07 :07 [facility] 04/16/20 at Branch 1616, Until [facility] 04/16/20 at 1616, Routine piperacilli 2019- 2020- No 3.375g 3.375 g, Univers n-tazobacta 04-16 [...] at 100 Univ ers ringers IV 04-14 0901 mL/hr, ity of infusion 12:01: 17:52 1,000 [...] [place] 04/12/20 at 1999, Last dose on [place] 04/15/20 at 1999, 100 mL
Reas on for Anti-Infec tive: Empiric Therapy for Suspected Infection< br>Empiric Therapy Site: Abdominal< br>Duratio n of therapy: 7 days<br&gt ;Restricte d use approved by: [employer]TIMICROB [employer]IT[employer] ampicillin- 2019- No 3g 3 g, IV [...] 1745, Until Discontinu ed, 100 mL micafungin 2019- 2020- No 100mg 100 mg, IV Univers [...] n of Therapy: 7 days D5W 0.45% 2019-2019- No IV Univers NaCl 04-12 Infusion, ity of (1/2NS) 1 L 21:45: 11:01 at 125 [place] + KCL 20 00 :54 mL/hr, Medical mEq CONTINUOUS Branch , Starting [place] 04/12/20 at 1645, Until 04/14/20 at 0601, Routine iohexol 2019-0 2020- No 100mL 100 [...] dose, [place] Branch 04/12/20 at 1200, Routine
member service specialist approving Restricted medication : BIA PEDRO D5W 0.45% 2020-0 2020- No IV Univers NaCl 04-11 Infusion, [...] in 06 :54 Starting Medica l lactated [facility] Branch ringers 04/11/20 at 1,000 mL 0852, [...] Thu Medi mariusz (4 %) 04/11/20 at [place] infusion 2 0645, g Routine Total 2019- No at 40 Univers Parenteral 04-10 mL/hr, ity of Nutrition 22:00: 11:51 2,040 mL, [place] 00 :29 TPNCONTINU Medical OUS, 1 Branch dose, First dose (after last modificati on) on Thu04/10/20 at 1700 magnesium 2019- No 4g 4 g, IV Univ ers sulfate in 04-10 Piggyback, it y of water 4 13:30: 13:41 ONCE, 1 [place] gram/50 mL 00 :00 dose, Medi mariusz (8 %) IV 04/10/20 at Branc h Piggyback 4 0830, g Routine DAPTOmycin No 500mg 500 mg, IV Univers (CUBICIN) 04-10 Piggyback, ity of 500 mg in 06:00: 15:57 Q24H ABX, [place] NaCl 0.9% 00 :33 First dose Medi mariusz (NS) on [facility] piggyback 04/10/20 at 0100, Until Discontinu ed, 100 mL
R mitali for Anti-Infec tive: Documented Infection< br>Documen dain Infection Site: Abdominal< br>Duratio n of Therapy: 7 days
Re stricted use approved by: [employer]OB [employer] ibuprofen 2019- No 600mg 600 mg, Uni vers (IBU) 04-10 Oral, Q8H, ity of tablet 600 03:00: 10:59 First dose [place] mg 00 :06 on [facility] Medical 04/09/20 at Branch 2200, Until Discontinu ed, Routine micafungin 2019- No 100mg 100 mg, IV Univers (MYCAMINE) 04-10 Piggyback, it y of 100 mg in 02:45: 15:57 Q24H ABX, [place] NaCl 0.9% 00 :33 First dose Medi mariusz (NS) 100 mL on [facility] MINI-BAG 04/09/20 at 2145, Until Discontinu ed, 100 mL
R estricted use approved by: ANTIMICROB IAL STEWARDSWY P COMMITTEE< br>Reason for Anti-Infec tive: Documented Infection< br>Documen dain Infection Site: Abdominal< br>Duratio n of Therapy: 7 days ampicillin- 2020- No 3g 3 g, IV Un piyush sulbactam 04-10 Piggyback, ity of (UNASYN) 3 02:45: 16:18 Q8H ABX, [place] g in NaCl 00 :37 First dose Medi mariusz 0.9% (NS) on [facility] Branch 100 mL 04/09/20 at MINI-BAG 2145, Until Discontinu ed, 100 mL
Reas on for Anti-Infec tive: Documented Infection< br>Documen dain Infection Site: Abdominal< br>Duratio n of Therapy: 7 days acetaminoph 2019- No 500mg 500 mg, U nivers en 04-09 Oral, Q6H, ity of (TYLENOL) 23:00: 10:54 First dose [place] tablet 500 00 :23 on [facility] Medical mg 04/09/20 at Branch 1800, Until Discontinu ed, Routine Total 2020- No at 85 Univers Parenteral 04-09 mL/hr, ity of Nutrition 22:00: 22:18 2,040 mL, [place] 00 :00 TPNCONTINU Medical OUS, 1 Branch dose, First dose (after last reorder) on Thu04/09/20 at 1700 KCL 2019-2019- No IV Univers (POTASSIUM 04-09 Infusion, ity of CHLORIDE) 17:43: 13:52 TITRATE, [place] 20 mEq in 20 :43 Starting Medica l lactated [facility] Branch ringers 04/09/20 at 1,000 mL 1243, [...] Branch infusion 2 0700, g Routine potassium 2019-2019- No 44meq 44 mEq, IV Univers phosphate [...] First dose (after last modificati on) on Thu04/08/20 at 1700 acetaminoph 2019- 2020- No 1000mg 1,000 mg, Univers en ADULT 04-08 IV ity of (OFIRMEV) 17:00: 11:15 Infusion, [place] injection 00 :00 Administer Medi mariusz 1,000 mg over 15 Branch Minutes, Q6H, 4 doses, First dose (after last modificati on) on Thu04/08/20 at 1200, Last dose on Thu04/09/20 at 0600, Routine
Indicatio n: Perioperat ector Patient acetaminoph 2019-0 2020- No 1000mg 1,000 mg, Univers en ADULT 04-07 IV ity of (OFIRMEV) 23:00: 14:28 Infusion, [place] injection 00 :31 Administer Medi mariusz 1,000 mg over 15 Branch Minutes, Q6H, 4 doses, First dose (after last reorder) on [facility] 04/07/20 at 1800, Last dose on [place] 04/08/20 at 1200, Routine
Indicatio n: Perioperat ector Patient D5W-LR IV 2020-0 2020- No 1000mL at 60 Univ ers infusion 04-07 08-16 mL/hr, IV ity o f 1,000 mL 22:45: 15:29 Infusion, [place] 00 :52 CONTINUOUS Medical , Starting Branch [facility] 04/07/20 at 1745, Until [place] 04/08/20 at 1029, Routine Total 2020-0 2020- No at 85 Univers Parenteral 04-07 08-16 mL/hr, ity of Nutrition 22:00: 22:05 2,040 mL, [place] 00 :00 TPNCONTINU Medical OUS, 1 Branch dose, First dose on [facility] 04/07/20 at 1700 fluconazole 2019- 2020- No 400mg at 100 Un piyush (DIFLUCAN) 04-07 08-18 mL/hr, IV ity of IV 20:00: 01:35 Piggyback, [place] Piggyback 00 :07 Q24H ABX, Medic al 400 mg First dose Branch on [facility] 04/07/20 at 1500, Until Discontinu ed, JOÃO multivitami 2019-0 2020- No 15mL 15 mL, Uni vers n (CENTRUM) 04-07 08-28 Enteral, ity of solution 15 14:00: 15:31 DAILY, [place] mL 00 :33 First dose Medical (after Branch last modificati on) on [facility] 04/07/20 at 0900, Until Discontinu ed, Routine heparin 2019- 2020- No 5000U 5,000 Univers (porcine) 04-07 08-19 Units, ity of injection 11:00: 11:53 Subcutaneo [place] 5,000 Units 00 :30 us, Q8H, Medi mariusz First dose Branch on [facility] 04/07/20 at 0600, Until Discontinu ed, Routine D5W-LR IV 2019-0 2020- No 1000mL at 150 Uni vers infusion 04-07 08-15 mL/hr, IV ity o f 1,000 mL 08:45: 22:41 Infusion, [place] 00 :18 CONTINUOUS Medical , Starting Branch 04/07/20 at 0345, Until 04/07/20 at 1741, Routine D5W-LR IV 2019-0 2020- No 1000mL at 200 Uni vers [...] dose on Medic al mg in NaCl Thu Branch 0.9% (NS) 04/06/20 at piggyback 2100, Until Discontinu ed, 50 mL sodium 2019-0 Yes 1{bottl 473 mL (1 Uni vers hypochlorit 04-07 e} Bottle), ity of e 0.5% 01:00: Topical, [place] (DAKINS) 00 BID, First Medic al solution [...] 1800, Last dose on Thu04/07/20 at 1200, 500 mL
[place] cation: SEVERE [...] o f succ 21:15: 22:41 ONCE, 1 [place] (CORTEF) 00 :00 dose, Fri Medica l [...] infusion , Starting Thu04/06/20 at 1600 magnesium 2019-0 2020- No 4g 4 g, IV Univ ers sulfate in 04-06-15 Piggyback, it y of water 4 21:00: [...] 2020- No 1000mg 1,000 mg, Univers (MERREM) 04-0618 IV ity of 1,000 mg in 19:30: [...] No 1000mL at 125 Uni vers infusion 04-06-15 mL/hr, IV ity o f 1,000 mL 19:30: 02:50 Infusion, [place] 00 :43 CONTINUOUS Medical , Starting Branch Thu04/06/20 at 1430, Until Thu04/06/20 at 2150, Routine lactated 2020-0 2020- No 500mL at 999 Unive rs ringers IV 04-06-14 mL/hr, 500 it y of infusion 19:30: 19:30 mL, [place] 500 mL 00 :00 Intravenou Medical s, ONCE, 1 Branch dose, Thu04/06/20 at 1430, Routine NORepinephr 2020-0 2020- No .05ug/k 0.05-1.5 Univers ine 4 [...] allowed dose, contact prescriber .
LORazepam 2019- 2020- No 2mg 2 mg, Slow U nivers (ATIVAN) 04-06 IV Push, ity of injection 2 16:46: 14:23 Q4HPRN, [place] mg 54 :22 Starting Medical Fri Branch 04/06/20 at 1146, Until [place] 04/08/20 at 0923, Routine, Agitation, Sedation lactated [...] 00 :35 Fri Medical injection 04/06/20 at [facility] 1110, Until Thu04/06/20 at 1129, Routine, Intra-op sodium 2020-0 2020- No ONCE INTRA Univ ers bicarbonate 04-06 PROCEDURE, i ty of 8.4 % (1 16:10: 16:29 [place] mEq/mL) 00 :35 Fri Medical injection 04/06/20 at [facility] 1110, Until Thu04/06/20 at 1129, Routine, [...] 00 :35 Fri Medical infusion 04/06/20 at [facility] 1029, Until Thu04/06/20 at 1129, Routine, Intra-op EPINEPHrine 2020-0 2020- No CONTINUOUS Univers 1 mg in 04-06 PRN, ity of NaCl 0.9% 15:29: 16:29 Starting [place] (NS) 00 :35 Fri Medical infusion 04/06/20 at [facility] 1029, Until Thu04/06/20 at 1129, Routine, Intra-op piperacilli 2020-0 2020- No CONTINUOUS Univers n-tazobacta 04-06 PRN, ity of m (ZOSYN) 14:57: 16:29 Starting [place] 3.375 g in 00 :35 Fri Medical NaCl 0.9% 04/06/20 at [facility] (NS) 100 mL 0957, infusion Until Discontinu ed, 100 mL, Intra-op piperacilli 2020-0 2020- No CONTINUOUS Univers n-tazobacta 04-06 PRN, ity of m (ZOSYN) 14:57: 16:29 Starting [place] 3.375 g in 00 :35 Fri Medical NaCl 0.9% 04/06/20 at [facility] (NS) 100 mL 0957, infusion Until Discontinu ed, 100 mL, Intra-op EPINEPHrine 2020-0 2020- No ONCE INTRA Univers 1:1,000 (1 04-06 PROCEDURE, it y of mg/mL) 14:54: 16:29 Starting [place] (ADRENALIN) 00 :35 Fri Medical injection 04/06/20 at [facility] 0954, Until Discontinu ed, Routine, Intra-op EPINEPHrine 2020-0 2020- No ONCE INTRA Univers 1:1,000 (1 04-06 PROCEDURE, it y of mg/mL) 14:54: 16:29 Starting [place] (ADRENALIN) 00 :35 Fri Medical injection 04/06/20 at [facility] 0954, Until Discontinu ed, Routine, Intra-op NORepinephr 2020-0 2020- No CONTINUOUS Univers ine 04-06 PRN, ity of (LEVOPHED) 14:39: 16:29 [place] 4 mg in 00 :35 Fri Medical NaCl 0.9% 04/06/20 at [facility] (NS) 250 mL 0939, infusion Intra-op NORepinephr 2020-0 2020- No CONTINUOUS Univers ine 04-06 PRN, ity of (LEVOPHED) 14:39: 16:29 [place] 4 mg in 00 :35 Fri Medical NaCl 0.9% 04/06/20 at [facility] (NS) 250 mL 0939, infusion Intra-op [...] Until Thu04/06/20 at 1129, Routine, Intra-op succinylcho 2019-0 2020- No IV Push, U nivers line 04-06 ONCE INTRA ity of (QUELICIN) 14:15: 16:29 PROCEDURE, [place] injection 00 :35 Starting Medica l Fri Branch 04/06/20 at 0915, Until Thu04/06/20 at 1129, Routine, Intra-op propofol IV 2019-0 2020- No ONCE INTRA Univers infusion 04-06 PROCEDURE, ity of 14:15: 16:29 Starting [place] 00 :35 [facility] 04/06/20 at Branch 0915, Until Thu04/06/20 at 1129, Routine, Intra-op lidocaine 2019-0 2020- No ONCE INTRA U nivers 1% 04-06 PROCEDURE, ity of (XYLOCAINE) 14:15: 16:29 Starting [place] 100 mg/10 00 :35 Fri Medical mL (1 %) 04/06/20 at [facility] h injection 0915, Until Thu04/06/20 at 1129, [...] of 14:15: 16:29 Starting [place] 00 :35 [facility] 04/06/20 at Branch 0915, Until Thu04/06/20 at 1129, Routine, Intra-op lidocaine 2020-0 2020- No ONCE INTRA U nivers 1% 04-06 PROCEDURE, ity of (XYLOCAINE) 14:15: 16:29 Starting [place] 100 mg/10 00 :35 [facility] mL (1 %) 04/06/20 at [facility] h injection 0915, Until Thu04/06/20 at 1129, Routine, Intra-op FENTanyl PF 2020-0 2020- No ONCE INTRA Univers (SUBLIMAZE 04-06 PROCEDURE, it y of (PF)) 14:15: 16:29 Starting [place] injection 00 :35 [facility] 04/06/20 at Branch 0915, Until Thu04/06/20 at 1129, Routine, Intra-op albumin 2020-0 2020- No CONTINUOUS Uni vers (ALBUMINAR- 04-06 PRN, ity of 5) 5 % 14:10: 16:29 Starting [place] injection 00 :35 [facility] 04/06/20 at Branch 0910, Until Discontinu ed, Intra-op lactated 2020-0 2020- No CONTINUOUS Un piyush ringers IV 04-06 PRN, ity of infusion 14:10: 16:29 [place] 00 :35 [facility] 04/06/20 at Branch 0910, Until Discontinu ed, Routine, Intra-op albumin 2020-0 2020- No CONTINUOUS Uni vers (ALBUMINAR- 04-06 PRN, ity of 5) 5 % 14:10: 16:29 Starting [place] injection 00 :35 [facility] 04/06/20 at Branch 0910, Until Discontinu ed, Intra-op lactated 2020-0 2020- No CONTINUOUS Un piyush ringers IV 04-06 PRN, ity of infusion 14:10: 16:29 [place] 00 :35 Fri Medical 04/06/20 at Branch 0910, Until Discontinu ed, Routine, Intra-op lactated 2019-0 2020- No 1000mL at 999 Univ ers ringers IV 04-06 mL/hr, ity of infusion 12:30: 12:37 1,000 mL, [place] 1,000 mL 00 :00 Intravenou Medic al s, ONCE, 1 Branch dose, 04/06/20 at 0730, Routine methocarbam 2019-2019- No 1000mg 1,000 mg, Univers ol 04-06 [...] First dose Medic al NaCl 0.9% on [facility] Branch (NS) 100 mL 04/05/20 at [facility]BAG [...] Branch 0800, Until Discontinu ed, Routine magnesium 2020- [...] Last dose on Thu04/04/20 at 1200, Routine
member service specialist approving Restricted medication : PHATAK, BIA methocarbam 2019-0 2020- No 1000mg 1,000 [...] injection 4 26 Starting Medi mariusz mg Tue Branch 04/03/20 at 1627, Until Discontinu ed, Routine, Nausea and Vomiting (N/V) alvimopan 2019-0 2020- No 12mg 12 mg, Unive rs (ENTEREG) 04-03 Oral, ity of capsule 12 13:45: 14:02 ONCE, 1 [place] mg 00 :00 dose, [facility] Medical 04/03/20 at Branch 0845, Routine
Restricte d use approved by: HELENE MEDELLIN - SURGERY/GE NERAL heparin 2019-0 2020- No 5000U 5,000 Univers (porcine) 04-03 Units, ity of injection 12:00: 12:02 Subcutaneo [place] 5,000 Units 00 :00 , ONCE, Med ical 1 dose, Branch [facility] 04/03/20 at 0700, Routine gabapentin 2019-0 2020- No 300mg 300 mg, Un piyush (NEURONTIN) 04-03 Oral, ity of 250 mg/5 mL 12:00: 12:02 ONCE, 1 [place] solution 00 :00 dose, Tue Medica l 300 mg 04/03/20 at Branch 0700, Routine D5W 0.45% 2020-0 2020- No IV Univers NaCl 04-02 Infusion, ity of (1/2NS) 1 L 23:30: 17:59 at 125 [place] + KCL 20 00 :42 mL/hr, Medical mEq CONTINUOUS Branch , Starting 04/02/20 at 1830, Until Thu04/04/20 at 1259, Routine NaCl 0.9% 2020-0 2020- No 1000mL at 999 Uni vers (NS) bolus 04-02 08-10 mL/hr, ity of infusion 22:45: 21:48 1,000 mL, [place] 1,000 mL 00 :00 IV Medical Piggyback, Branch ONCE, 1 dose, 04/02/20 at 1745, STAT pantoprazol 2019- No 40mg 40 mg, IV Univers e 04-02 Piggyback, ity of (PROTONIX) 00:15: 10:49 Q24H, [place] 40 mg in 00 :10 First dose Medic al NaCl 0.9% on [place] Branch (NS) 100 mL 04/01/20 at MINI-BAG 1915, Until Discontinu ed, 100 mL D5W 0.45% 2019- No IV Univers NaCl 04-02 Infusion, ity of (1/2NS) 1 L 00:15: 23:16 at 150 [place] + KCL 20 00 :16 mL/hr, Medical mEq CONTINUOUS Branch , Starting [place] 04/01/20 at 1915, Until Thu04/02/20 at 1816, Routine acetaminoph 2019- No 650mg 650 mg, U nivers en 04-01 Oral, ity of (TYLENOL) 23:11: 21:31 Q6HPRN, [place] tablet 650 57 :27 Starting Medic al mg [place] 04/01/20 Branch at 1811, Until 04/03/20 at 1631, Routine, Pain (scale 1-3), Pain (scale 4-6) NaCl 0.9% 2019- No 1000mL at 999 Uni vers (NS) bolus 04-0110 mL/hr, ity of infusion 23:10: 00:18 1,000 mL, [place] 1,000 mL 00 :00 IV Medical Piggyback, Branch ONCE, 1 dose, [place] 04/01/20 at 1815, STAT lactulose 2019-2019- No 15mL 15 mL, Unive rs (CEPHULAC) 04-01 Oral, ity of solution 15 16:15: 16:01 ONCE, 1 [place] mL 00 :00 dose, [facility] 04/01/20 at Branch 1115, Routine Polyethylen 2019-2019- No 17g 17 g, Univ ers e [...] mariusz mg Thu03/30/20 Branch at 2051, Until e 04/03/20 at 1631, Routine, Nausea and Vomiting [...] 03/30/20 at Branch 1815, JOÃO FENTanyl PF 2019-0 2020- No 50ug 50 mcg, Un piyush (SUBLIMAZE 03-30 Slow IV ity o f (PF)) 23:15: 22:06 Push, [place] injection 00 :00 ONCE, 1 Medical 50 mcg dose, Fri Branch 03/30/20 at 1815, Routine NaCl 0.9% 2020-0 2020- No 1000mL at 999 Uni vers (NS) bolus 8 08-07 mL/hr, ity of infusion 22:15: 23:43 1,000 mL, [place] 1,000 mL 00 :00 IV Medical Infusion, Branch ONCE, 1 dose, 03/30/20 at 1715, JOÃO metoclopram 2020-0 2020- No 5mg 5 mg, Slow Univers tammi HCl 8-05 08-06 IV Push, ity of (REGLAN) 01:00: 00:59 Q12H, 2 [place] injection 5 00 :00 doses, Medica l mg First dose Branch on Thu03/27/20 at 2000, Last dose on Thu03/28/20 at 0800, Routine metoclopram 2020-0 Yes [id number] 5mg Take 1 Univers tammi HCl 8-05 tablet by ity of (REGLAN) 5 00:00: mouth [place] mg tablet 00 every 12 Medica l (twelve) Branch hours as needed for Nausea and Vomiting (N/V) (constipat ion). metoclopram 2020-0 Yes [id number] 5mg Take 1 Univers tammi HCl 8-05 tablet by ity of (REGLAN) 5 00:00: mouth [place] mg tablet 00 every 12 Medica l (twelve) Branch hours as needed for Nausea and Vomiting (N/V) (constipat ion). metoclopram 2020-0 Yes [id number] 5mg Take 1 Univers tammi HCl 8-05 tablet by ity of (REGLAN) 5 00:00: mouth [place] mg tablet 00 every 12 Medica l (twelve) Branch hours as needed for Nausea and Vomiting (N/V) (constipat ion). metoclopram 2020-0 Yes [id number] 5mg Take 1 Univers tammi HCl 8-05 tablet by ity of (REGLAN) 5 00:00: mouth [place] mg tablet 00 every 12 Medica l (twelve) Branch hours as needed for Nausea and Vomiting (N/V) (constipat ion). metoclopram 2020-0 2020- No [id number] 5mg Take 1 Univers tammi HCl 8-05 [...] No 1000mg 1,000 mg, Univers en ADULT 03-26- IV ity of (OFIRMEV) 05:15: 04:42 Infusion, [...] injection 4 11 Starting Medi mariusz mg Thu03/25/20 Branch at 2146, Until Discontinu ed, Routine, Nausea and Vomiting (N/V) acetaminoph 2020-0 Yes 650mg 650 mg, Un piyush en 03-26 Oral, ity of (TYLENOL) 02:46: Q6HPRN, [place] tablet 650 05 Starting Medic al mg [place] 03/25/20 Branch at 2146, Until Discontinu ed, Routine, Pain (scale 1-3) iohexol 2020-0 2020- No 100mL 100 mL, Unive rs (OMNIPAQUE 03-26 Intravenou it y of 350 01:30: 01:30 s, ONCE, 1 [place] BULK-100 00 :00 dose, [place] Medica l mL) 03/25/20 at Branch injection 2030, 100 mL Routine NaCl 0.9% 2020-0 2020- No 1000mL at 999 Uni vers (NS) bolus 03-26-03 mL/hr, ity of infusion 00:45: 00:42 1,000 mL, [place] 1,000 mL 00 :00 IV Medical Infusion, [place] ONCE, 1 dose, [place] 03/25/20 at 1945, JOÃO enoxaparin 2019-0 Yes [...] IV Push, ity of (PF)) 04:05: Q6HPRN, [place] injection 4 40 Starting Medi mariusz mg Thu Branch 03/02/20 at 2305, Until Discontinu ed, Routine, Nausea and Vomiting (N/V) acetaminoph 2020-0 Yes 650mg 650 mg, Un piyush en 03-03 Oral, ity of (TYLENOL) 04:05: Q6HPRN, [place] tablet 650 30 Starting Medic al mg Fri [place] 03/02/20 at 2305, Until Discontinu ed, Routine, Pain (scale 1-3) Polyethylen 2020-0 Yes [id number] 17g Take 1 Univers e Glycol 7-07 Packet by ity of 3350 17 00:00: mouth [place] gram powder 00 daily. Medica l Branch Polyethylen 2020-0 Yes [id number] 17g Take 1 Univers e Glycol 7-07 Packet by ity of 3350 17 00:00: mouth [place] gram powder 00 daily. Medica l Branch Polyethylen 2020-0 Yes [id number] 17g Take 1 Univers e Glycol 7-07 Packet by ity of 3350 17 00:00: mouth [place] gram powder 00 daily. Medica l Branch Polyethylen 2020-0 Yes [id number] 17g Take 1 Univers e Glycol 7-07 Packet by ity of 3350 17 00:00: mouth [place] gram powder 00 daily. Medica l Branch Polyethylen 2020-0 2020- No [id number] 17g Take 1 Univers e Glycol 7-07 08-05 Packet by ity o f 3350 17 00:00: 00:00 mouth [place] gram powder 00 :00 daily. Medica l Branch Polyethylen 2020-0 Yes 17g 17 g, Unive rs e Glycol 7-06 Oral, ity of 3350 18:15: DAILY, [place] (MIRALAX) 00 First dose Medi mariusz powder 17 g on Thu [place] 02/27/20 at 1315, Until Discontinu ed, Routine enoxaparin 2020-0 Yes 40mg 40 mg, Unive rs (LOVENOX) 7-06 Subcutaneo ity of injection 14:00: us, DAILY, [place] 40 mg 00 First dose Medical on Thu [place] 02/27/20 at 0900, Until Discontinu ed, Routine polyethylen 2020-0 Yes [id number] 17g Take 17 g Univers e glycol 17 7-06 by mouth ity of gram/dose 00:00: daily. [place] powder 00 [facility] polyethylen 2020-0 Yes [id number] 17g Take 17 g Univers e glycol 17 7-06 by mouth ity of gram/dose 00:00: daily. [place] powder 00 [facility] polyethylen 2020-0 Yes [id number] 17g Take 17 g Univers e glycol 17 7-06 by mouth ity of gram/dose 00:00: daily. [place] powder 00 [facility] polyethylen 2020-0 Yes [id number] 17g Take 17 g Univers e glycol 17 7-06 by mouth ity of gram/dose 00:00: daily. [place] powder 00 [facility] polyethylen 2020-0 Yes [id number] 17g Take 17 g Univers e glycol 17 7-06 by mouth ity of gram/dose 00:00: daily. [place] powder 00 [facility] polyethylen 2020-0 Yes [id number] 17g Take 17 g Univers e glycol 17 7-06 by mouth ity of gram/dose 00:00: daily. [place] powder [facility] polyethylen 2020-0 Yes [id number] 17g Take 17 g Univers e glycol 17 7-06 by mouth ity of gram/dose 00:00: daily. [place] powder [facility] polyethylen 2020-0 Yes [id number] 17g Take 17 g Univers e glycol 17 7-06 by mouth ity of gram/dose 00:00: daily. [place] powder [facility] polyethylen 2019-0 2020- No [id number] 17g Take 17 g Univers e glycol 17 7-06 09-08 by mouth ity of gram/dose 00:00: 00:00 daily. [place] powder 00 :00 [facility] iohexol 2020- No 120mL 120 mL, Unive rs (OMNIPAQUE 02-25 Intravenou it y of 350 18:30: 18:30 s, ONCE, 1 [place] BULK-100 00 :00 dose, [place] Medica l mL) 02/26/20 at Branch injection 1330, 120 mL Routine lactated 2020- No 1000mL at 125 Univ ers ringers IV 02-25-06 mL/hr, ity of infusion 16:00: 17:57 1,000 mL, [place] 1,000 mL 00 :14 IV Medical Infusion, Branch CONTINUOUS , Starting 02/26/20 at 1100, Until 02/27/20 at 1257, Routine acetaminoph Yes 650mg 650 mg, Un piyush en 05 Oral, ity of (TYLENOL) 15:01: Q6HPRN, [place] tablet 650 46 Starting Medic al mg 02/26/20 Branch at 1001, Until Discontinu ed, Routine, Pain (scale 1-3), Pain (scale 4-6) pantoprazol 2019-0 2020- No [id number] 40mg Take 1 Univers e 40 mg EC 6-15 09-14 tablet by ity of tablet 00:00: 04:59 mouth [place] 00 :00 daily for Medical 90 days. Branch pantoprazol 2019-0 2019- No [id number] 40mg Take 1 Univers e 40 mg EC 6-15 09-14 tablet by ity of tablet 00:00: 04:59 mouth [place] 00 :00 daily for Medical 90 days. Branch pantoprazol 2019-2019- No [id number] 40mg Take 1 Univers e 40 mg EC 6-15 -14 tablet by ity of tablet 00:00: 04:59 mouth [place] 00 :00 daily for Medical 90 days. Branch pantoprazol 2019-0 2019- No [id number] 40mg Take 1 Univers e 40 mg EC 6-15 -14 tablet by ity of tablet 00:00: 04:59 mouth [place] 00 :00 daily for Medical 90 days. Branch pantoprazol 2019-2019- No [id number] 40mg Take 1 Univers e 40 mg EC 6-15 -14 tablet by ity of tablet 00:00: 04:59 mouth [place] 00 :00 daily for Medical 90 days. Branch pantoprazol 2019-0 2019- No [id number] 40mg Take 1 Univers e 40 mg EC 6-15 -14 tablet by ity of tablet 00:00: 04:59 mouth [place] 00 :00 daily for Medical 90 days. Branch pantoprazol 2019-0 2019- No [id number] 40mg Take 1 Univers e 40 mg EC 6-15 -14 tablet by ity of tablet 00:00: 04:59 mouth [place] 00 :00 daily for Medical 90 days. Branch pantoprazol 2019-0 2019- No [id number] 40mg Take 1 Univers e 40 mg EC 6-15 -14 tablet by ity of tablet 00:00: 04:59 mouth [place] 00 :00 daily for Medical 90 days. Branch pantoprazol 2019-0 2019- No [id number] 40mg Take 1 Univers e 40 mg EC 6-15 09-14 tablet by ity of tablet 00:00: 04:59 mouth [place] 00 :00 daily for Medical 90 days. Branch pantoprazol 2019-2019- No [id number] 40mg Take 1 Univers e 40 mg EC 6-15 09-14 tablet by ity of tablet 00:00: 04:59 mouth [place] 00 :00 daily for Medical 90 days. Branch pantoprazol 2019-0 2020- No [id number] 40mg Take 1 Univers e 40 mg EC 6-15 09-14 tablet by ity of tablet 00:00: 04:59 mouth [place] 00 :00 daily for Medical 90 days. Branch pantoprazol 2019-0 2020- No [id number] 40mg Take 1 Univers e 40 mg EC 6-15 09-14 tablet by ity of tablet 00:00: 04:59 mouth [place] 00 :00 daily for Medical 90 days. Branch pantoprazol 2019-0 2020- No [id number] 40mg Take 1 Univers e 40 mg EC 6-15 09-08 tablet by ity of tablet 00:00: 00:00 mouth [place] 00 :00 daily for Medical 90 days. Branch docusate 2020-0 2020- No [id number] 100mg Take 1 Univers 100 mg 6-14 09-13 capsule by ity of capsule 00:00: 04:59 mouth 2 [place] 00 :00 (two) Medical times Branch daily for 90 days. docusate 2020-0 2020- No [id number] 100mg Take 1 Univers 100 mg 6-14 09-13 capsule by ity of capsule 00:00: 04:59 mouth 2 [place] 00 :00 (two) Medical times Branch daily for 90 days. docusate 2020-0 2020- No [id number] 100mg Take 1 Univers 100 mg 6-14 09-13 capsule by ity of capsule 00:00: 04:59 mouth 2 [place] 00 :00 (two) Medical times Branch daily for 90 days. docusate 2020-0 2020- No [id number] 100mg Take 1 Univers 100 mg 6-14 09-13 capsule by ity of capsule 00:00: 04:59 mouth 2 [place] 00 :00 (two) Medical times Branch daily for 90 days. docusate 2020-0 2020- No [id number] 100mg Take 1 Univers 100 mg 6-14 09-13 capsule by ity of capsule 00:00: 04:59 mouth 2 [place] 00 :00 (two) Medical times Branch daily for 90 days. docusate 2020-0 2020- No [id number] 100mg Take 1 Univers 100 mg 6-14 09-13 capsule by ity of capsule 00:00: 04:59 mouth 2 [place] 00 :00 (two) Medical times Branch daily for 90 days. docusate 2020-0 2020- No [id number] 100mg Take 1 Univers 100 mg 6-14 -13 capsule by ity of capsule 00:00: 04:59 mouth 2 [place] 00 :00 (two) Medical times Branch daily for 90 days. docusate 2020-0 2020- No [id number] 100mg Take 1 Univers 100 mg 6-14 09-13 capsule by ity of capsule 00:00: 04:59 mouth 2 [place] 00 :00 (two) Medical times Branch daily for 90 days. docusate 2020-0 2020- No [id number] 100mg Take 1 Univers 100 mg 6-14 09-13 capsule by ity of capsule 00:00: 04:59 mouth 2 [place] 00 :00 (two) Medical times Branch daily for 90 days. docusate 2020-0 2020- No [id number] 100mg Take 1 Univers 100 mg 6-14 -13 capsule by ity of capsule 00:00: 04:59 mouth 2 [place] 00 :00 (two) Medical times Branch daily for 90 days. docusate 2020-0 2020- No [id number] 100mg Take 1 Univers 100 mg 6-14 -13 capsule by ity of capsule 00:00: 04:59 mouth 2 [place] 00 :00 (two) Medical times Branch daily for 90 days. docusate 2020-0 2020- No [id number] 100mg Take 1 Univers 100 mg 6-14 -13 capsule by ity of capsule 00:00: 04:59 mouth 2 [place] 00 :00 (two) Medical times Branch daily for 90 days. docusate 2020-0 2020- No [id number] 100mg Take 1 Univers 100 mg 6-14 -08 capsule by ity of capsule 00:00: 00:00 mouth 2 [place] 00 :00 (two) Medical times Branch daily [...] s mg 00 First dose Medical on [place] 01/29/20 at 0900, Until Discontinu ed, Routine levothyroxi 2020-0 Yes 50ug 50 mcg, Uni vers ne 01-28 Oral, ity of (SYNTHROID) 11:00: QAM-0600, [place] tablet 50 00 First dose Medi mariusz mcg on [place] 01/29/20 at 0600, Until Discontinu ed, Routine simethicone 2020-0 Yes 80mg 80 mg, Univ ers (GAS RELIEF 01-28 Oral, ity of (SIMETHICON 04:45: PC+HS, [place] E)) 00 First dose Medical chewable on [facility] Branch tablet 80 01/28/20 at mg 2345, Until Discontinu ed, Routine D5W IV 2020-0 2020- No 1000mL at 50 Univers infusion 01-28 06-14 mL/hr, IV ity o f 1,000 mL 03:45: 18:41 Infusion, [place] 00 :31 CONTINUOUS Medical , Starting Branch [facility] 01/28/20 at 2245, Until [place] 02/05/20 at 1341, Routine bisacodyL 2020-0 2020- No 10mg 10 mg, Unive rs (DULCOLAX) 01-28- Rectal, ity o f suppository 03:00: 02:52 ONCE, 1 [place] 10 mg 00 :00 dose, [facility] Medical 01/28/20 at Branch 2200, Routine ondansetron [...] 07 Oral, ity of (TYLENOL) 01:32: Q6HPRN, [place] tablet 650 14 Starting Medic al mg 01/28/20 Branch at 2032, Until Discontinu ed, Routine, Pain (scale 1-3) morpHINE 2020-0 2020- No 4mg 4 mg, Slow Un piyush injection 4 01-28 06- IV Push, ity of mg 00:45: 23:55 ONCE, 1 [place] 00 :00 dose, Sat Medical 01/28/20 at Branch 1945, STAT iohexol 2020-0 2020- No 100mL 100 mL, Unive rs (OMNIPAQUE 01-28 Intravenou it y of 350 00:00: 00:00 s, ONCE, 1 [place] BULK-100 00 :00 dose, Sat Medica l mL) 01/28/20 at [place] injection 1900, 100 mL Routine ondansetron 2020-0 [...] IV Push, ity of mg 06:14: Q6HPRN, [place] 00 Starting Medical Thu01/25/20 Branch at 0114, Until Discontinu ed, Routine, Pain (scale 7-10) proCHLORper 2020-0 Yes 10mg 10 mg, Univ ers azine 01-24 Slow IV ity of (COMPAZINE) 06:12: Push, [place] injection 17 Q6HPRN, Medical 10 mg Starting Branch 01/25/20 at 0112, Until Discontinu ed, Routine, Nausea and Vomiting (N/V) iohexol 2019- 2020- No 100mL 100 mL, Unive rs (OMNIPAQUE 01-24 Intravenou it y of 350 02:15: 02:11 s, ONCE, 1 [place] BULK-100 00 :00 dose, Tue Medica l mL) 01/24/20 at [place] injection 2114, 100 mL Routine morpHINE 2019- No 4mg 4 mg, Slow Un piyush injection 4 01-24 IV Push, ity of mg 01:45: 00:43 ONCE, 1 [place] 00 :00 dose, Tue Medical 01/24/20 at Branch 2044, Routine ondansetron 2019- No 4mg 4 mg, Slow Univers (ZOFRAN 01-24 IV Push, ity of (PF)) 00:45: 00:58 Administer [place] injection 4 00 :00 over 15 Medic al mg Minutes, Branch ONCE, 1 dose, [facility] 01/24/20 at 1945, STAT NaCl 0.9% 2019- No 1000mL at 999 Uni vers (NS) bolus 01-2403 mL/hr, ity of infusion 00:45: 01:15 1,000 mL, [place] 1,000 mL 00 :00 IV Medical Infusion, Branch ONCE, 1 dose, [facility] 01/24/20 at 1945, JOÃO mineral oil 2019- 2020- No [id number] 30mL Take 30 mL Univers oral liquid 4-20 05-05 by mouth ity of 00:00: 04:59 daily for [place] 00 :00 14 days. Medical Branch tamsulosin [...] n (DAILY 04-14 abuse, in tablet by [employer]) 00:00: 00:00 [place] mouth tablet 00 :00 [...] tablet by ity of tablet 00:00: 00:00 [facility] [place] 00 :00 every Medical morning. Branch Immunizations Ordered Filled Immunization Date Status Comments [facility] e Immunization Name Name Influenza Virus 2021-06-04 Completed Universit y of Vaccine Quad IM, 00:00:00 [place] Me dical Preserv and ABX Branch Free 2-64 YRS Influenza Virus 2021-06-04 Completed Universit y of Vaccine Quad IM, 00:00:00 [place] Me dical Preserv and ABX Branch Free [...] Universit y of Vaccine Quad IM, 00:00:00 [place] Me dical Preserv and ABX Branch Free 6 MO-64 YRS Influenza Virus 2021-06-04 Completed Universit y of Vaccine Quad IM, 00:00:00 [place] Me dical Preserv and ABX Branch Free 6 MO-64 YRS Influenza Virus 2021-06-04 Completed Universit y of Vaccine Quad IM, 00:00:00 [place] Me dical Preserv and ABX Branch Free 6 MO-64 YRS Influenza Virus 2021-06-04 Completed Universit y of Vaccine Quad IM, 00:00:00 [place] Me dical Preserv and ABX Branch Free 6 MO-64 YRS Influenza Virus 2021-06-04 Completed Universit y of Vaccine Quad IM, 00:00:00 [place] Me dical Preserv and ABX Branch Free 6 MO-64 YRS Influenza Virus 2021-06-04 Completed Universit y of Vaccine Quad IM, 00:00:00 [place] Me dical Preserv and ABX Branch Free 6 MO-64 YRS Influenza Virus 2021-06-04 Completed Universit y of Vaccine Quad IM, 00:00:00 [place] Me dical Preserv and ABX Branch Free 6 MO-64 YRS Influenza Virus 2021-06-04 Completed Universit y of Vaccine Quad IM, 00:00:00 [place] Me dical Preserv and ABX Branch Free [...] Universit y of Vaccine Quad IM, 00:00:00 [place] Me dical Preserv and ABX Branch Free [...] y of Vaccine Quad .5 mL 00:00:00 [place] Medical IM 6+ MO Branch PPD 2017-04-14 Completed [facility] 00:00:00 PPD 2017-04-14 Completed [facility] 00:00:00 PPD 2017-04-14 Completed [facility] 00:00:00 PPD 2017-04-14 Completed [facility] 00:00:00 PPD 2017-04-14 Completed [facility] 00:00:00 Influenza Virus 2016-05-16 Completed Universit y of Vaccine Quad IM 3+ 00:00:00 [facility] Influenza Virus 2016-05-16 Completed Universit y of Vaccine Quad IM 3+ 00:00:00 [facility] Influenza Virus 2016-05-16 Completed Universit y of Vaccine Quad IM 3+ 00:00:00 [facility] Influenza Virus 2016-05-16 Completed Universit y of Vaccine Quad IM 3+ 00:00:00 [facility] Influenza Virus 2016-05-16 Completed Universit y of Vaccine Quad IM 3+ 00:00:00 [facility] Influenza Virus 2016-05-16 Completed Universit y of Vaccine Quad IM 3+ 00:00:00 [facility] Influenza Virus 2016-05-16 Completed Universit y of Vaccine Quad IM 3+ 00:00:00 [facility] Influenza Virus 2016-05-16 Completed Universit y of Vaccine Quad IM 3+ 00:00:00 [facility] Influenza Virus 2016-05-16 Completed Universit y of Vaccine Quad IM 3+ 00:00:00 [facility] Influenza Virus 2016-05-16 Completed Universit y of Vaccine Quad IM 3+ 00:00:00 [facility] Influenza Virus 2016-05-16 Completed Universit y of Vaccine Quad IM 3+ 00:00:00 [facility] Influenza Virus 2016-05-16 Completed Universit y of Vaccine Quad IM 3+ 00:00:00 [facility] Influenza Virus 2016-05-16 Completed Universit y of Vaccine Quad IM 3+ 00:00:00 [facility] Influenza Virus 2016-05-16 Completed Universit y of Vaccine Quad IM 3+ 00:00:00 [facility] Influenza Virus 2016-05-16 Completed Universit y of Vaccine Quad IM 3+ 00:00:00 [facility] Influenza Virus 2016-05-16 Completed Universit y of Vaccine Quad IM 3+ 00:00:00 [facility] Influenza Virus 2016-05-16 Completed Universit y of Vaccine Quad IM 3+ 00:00:00 [facility] Influenza Virus 2016-05-16 Completed [facility] 00:00:00 [facility] Influenza Virus 2016-05-16 Completed [facility]+ 00:00:00 [facility] Influenza Virus 2016-05-16 Completed [facility] IM 3+ 00:00:00 [facility] Influenza Virus 2016-05-16 Completed [facility] IM 3+ 00:00:00 [facility] Influenza Virus 2016-05-16 Completed [facility]ine [facility] IM 3+ 00:00:00 [facility] Influenza Virus 2016-05-16 Completed [facility]ine [facility] IM 3+ 00:00:00 [facility] Influenza Virus 2016-05-16 Completed [facility]ine [facility] IM 3+ 00:00:00 [facility] Influenza Virus 2016-05-16 Completed [facility]ine [facility] IM 3+ 00:00:00 [facility] Influenza Virus 2016-05-16 Completed [facility]ine [facility] IM 3+ 00:00:00 [facility] Influenza Virus 2016-05-16 Completed [facility] IM 3+ 00:00:00 [facility] Influenza Virus 2016-05-16 Completed [facility] IM 3+ 00:00:00 [facility] Influenza Virus 2016-05-16 Completed [facility] Vaccine [facility] IM 3+ 00:00:00 [facility] Influenza Virus 2016-05-16 Completed [facility]ine [facility] IM 3+ 00:00:00 [facility] Influenza Virus 2016-05-16 Completed [facility]ine [facility] IM 3+ 00:00:00 [facility] Influenza Virus 2016-05-16 Completed [facility]ine [facility] IM 3+ 00:00:00 [facility] Influenza Virus 2016-05-16 Completed [facility]ine [facility] IM 3+ 00:00:00 [facility] Influenza Virus 2016-05-16 Completed [facility]ine [facility] IM 3+ 00:00:00 [facility] Influenza Virus 2016-05-16 Completed [facility]ine [facility] IM 3+ 00:00:00 [facility] Influenza Virus 2016-05-16 Completed [facility] IM 3+ 00:00:00 [facility] Influenza Virus 2016-05-16 Completed [facility] 3+ 00:00:00 [facility] Influenza Virus 2016-05-16 Completed [facility] 3+ 00:00:00 [facility] Influenza Virus 2016-05-16 Completed [facility]ine [facility] IM 3+ 00:00:00 [facility] Influenza Virus 2016-05-16 Completed [facility]ine [facility] IM 3+ 00:00:00 [facility] Influenza Virus 2016-05-16 Completed [facility] IM 3+ 00:00:00 [facility] Influenza Virus 2016-05-16 Completed [facility] IM 3+ 00:00:00 [facility] Influenza Virus 2016-05-16 Completed [facility] 3+ 00:00:00 [facility] Influenza Virus 2016-05-16 Completed [facility] 3+ 00:00:00 [facility] Influenza Virus 2016-05-16 Completed [facility] IM 3+ 00:00:00 [facility] Influenza Virus 2016-05-16 Completed [facility] IM 3+ 00:00:00 [facility] Influenza Virus 2016-05-16 Completed [facility] IM 3+ 00:00:00 [facility] Influenza Virus 2016-05-16 Completed [facility] IM 3+ 00:00:00 [facility] Influenza Virus 2016-05-16 Completed [facility]ine [facility] IM 3+ 00:00:00 [facility] Influenza Virus 2016-05-16 Completed [facility] IM 3+ 00:00:00 [facility] Influenza Virus 2016-05-16 Completed [facility]ine [facility] IM 3+ 00:00:00 [facility] Influenza Virus 2016-05-16 Completed [facility]ine [facility] IM 3+ 00:00:00 [facility] Influenza Virus 2016-05-16 Completed [facility] Vaccine [facility] IM 3+ 00:00:00 [facility] Influenza Virus 2016-05-16 Completed [facility]ine [facility] IM 3+ 00:00:00 [facility] Influenza Virus 2016-05-16 Completed [facility]ine [facility] IM 3+ 00:00:00 [facility] Influenza Virus 2016-05-16 Completed [facility]ine [facility] IM 3+ 00:00:00 [facility] Influenza Virus 2016-05-16 Completed [facility]ine [facility] IM 3+ 00:00:00 [facility] Influenza Virus 2016-05-16 Completed [facility]ine [facility] IM 3+ 00:00:00 [facility] Influenza Virus 2016-05-16 Completed [facility] IM 3+ 00:00:00 [facility] Influenza Virus 2016-05-16 Completed [facility]ine [facility] IM 3+ 00:00:00 [facility] Influenza Virus 2016-05-16 Completed [facility]ine [facility] IM 3+ 00:00:00 [facility] Influenza Virus 2016-05-16 Completed [facility]ine [facility] IM 3+ 00:00:00 [facility] Influenza Virus 2016-05-16 Completed [facility] IM 3+ 00:00:00 [facility] Influenza Virus 2016-05-16 Completed [facility] IM 3+ 00:00:00 [facility] Influenza Virus 2016-05-16 Completed [facility] Vaccine [facility] IM 3+ 00:00:00 [facility] Influenza Virus 2016-05-16 Completed [facility] Vaccine [facility] IM 3+ 00:00:00 [facility] Influenza Virus 2016-05-16 Completed [facility] Vaccine [facility] IM 3+ 00:00:00 [facility] Influenza Virus 2016-05-16 Completed [facility]ine [facility] IM 3+ 00:00:00 [facility] Influenza Virus 2016-05-16 Completed [facility] Vaccine [facility] IM 3+ 00:00:00 [facility] Influenza Virus 2016-05-16 Completed [facility]ine [facility] IM 3+ 00:00:00 [facility] Influenza Virus 2016-05-16 Completed [facility] Vaccine [facility] IM 3+ 00:00:00 [facility] Influenza Virus 2016-05-16 Completed [facility] IM 3+ 00:00:00 [facility] Influenza Virus 2016-05-16 Completed [facility] 3+ 00:00:00 [facility] Vital Signs Vital Name Observation Time Observation Value Comments Source Systolic blood 2022-04-10 115 mm[Hg] [facility] pressure 05:05:13 [facility] Diastolic blood 2022-04-10 93 mm[Hg] [facility] o f pressure 05:05:13 [facility] Heart rate 2022-04-10 87 /min [facility] of 05:05:13 [facility] Respiratory rate 2022-04-10 15 /min [facility] 05:05:13 [facility] Oxygen saturation 2022-04-10 100 /min [facility] in Arterial blood 05:05:13 [facility] Body temperature 2022-04-10 36.61 Tasia [facility] 01:35:00 [facility] Body height 2022-04-10 185.4 cm [facility] 01:35:00 [facility] Body weight 2022-04-10 68.04 kg [facility] 01:35:00 [facility] BMI 2022-04-10 19.79 kg/m2 [facility] 01:35:00 [facility] Systolic [...] /min [facility] of in Arterial blood 13:00:00 [facility] Body weight 2022-04-06 [...] 2021-09-14 106 mm[Hg] [facility] pressure 03:17:00 [facility] Diastolic blood 2021-09-14 55 mm[Hg] [facility] f pressure 03:17:00 [facility] Heart rate 2021-09-14 86 /min [facility] 03:17:00 [facility] Body temperature 2021-09-14 36.89 [facility] 03:17:00 [facility] Respiratory rate 2021-09-14 18 /min [facility] 03:17:00 [facility] Oxygen saturation 2021-09-14 98 /min [facility] in Arterial blood 03:17:00 [facility] Systolic [...] /min [facility] in Arterial blood 22:20:00 [facility] Body weight 2021-09-12 68.04 kg [facility] of 20:25:00 [facility] BMI 2021-09-12 19.79 kg/m2 [facility] of 20:25:00 [facility] Systolic blood 2021-09-12 103 mm[Hg] [facility] pressure 13:29:00 [facility] Diastolic blood 2021-09-12 67 mm[Hg] [facility] o f pressure 13:29:00 [facility] Heart rate 2021-09-12 91 /min [facility] 13:29:00 [facility] Body temperature 2021-09-12 36.72 [facility] 13:29:00 [facility] Respiratory rate 2021-09-12 33 /min [facility] 13:29:00 [facility] Oxygen saturation 2021-09-12 98 /min [facility] in Arterial blood 13:29:00 [facility] Body [...] [facility] Heart rate 2021-09-09 85 /min [facility] 04:59:00 [facility] Body temperature 2021-09-09 36.5 [facility] 04:59:00 [facility] Respiratory rate 2021-09-09 16 /min [facility] 04:59:00 [facility] Body height 2021-09-09 185.4 cm [facility] 04:59:00 [facility] Body weight 2021-09-09 68.04 kg [facility] 04:59:00 [facility] BMI 2021-09-09 19.79 kg/m2 [facility] 04:59:00 [facility] Oxygen saturation 2021-09-09 98 /min [facility] in Arterial blood 04:59:00 [facility] Systolic blood 2021-09-08 129 mm[Hg] [facility] pressure 05:42:00 [facility] Diastolic blood 2021-09-08 69 mm[Hg] [facility] pressure 05:42:00 [facility] Heart rate 2021-09-08 85 /min [facility] 05:42:00 [facility] Respiratory rate 2021-09-08 17 /min [facility] 05:42:00 [facility] Oxygen saturation 2021-09-08 98 /min [facility] in Arterial blood 05:42:00 [facility] Body temperature 2021-09-08 37.44 Tasia [facility] 01:22:00 [facility] Body weight 2021-09-08 68 kg [facility] of 01:22:00 [facility] BMI 2021-09-08 19.78 kg/m2 [facility] of 01:22:00 [facility] Systolic blood 2021-09-06 123 mm[Hg] [facility] pressure 21:33:00 [facility] Diastolic blood 2021-09-06 65 mm[Hg] University [...] /min [facility] in Arterial blood 21:33:00 [facility] Systolic blood 2021-09-05 99 mm[Hg] [facility] pressure 17:16:00 [facility] Diastolic blood 2021-09-05 62 mm[Hg] University [...] /min [facility] of in Arterial blood 17:16:00 [facility] by [facility] Body [...] /min [facility] in Arterial blood 15:59:00 [facility] Body [...] [facility] Oxygen saturation 2021-08-29 99 /min [facility] in Arterial blood 23:12:00 [facility] Systolic blood 2021-08-05 92 mm[Hg] [facility] pressure 10:56:00 [facility] Diastolic blood 2021-08-05 75 mm[Hg] [facility] o f pressure 10:56:00 [facility] Heart rate 2021-08-05 67 /min [facility] of 10:56:00 [facility] Body temperature 2021-08-05 36.22 Tasia [facility] 10:56:00 [facility] Oxygen saturation 2021-08-05 93 /min [facility] in Arterial blood 10:56:00 [facility] Respiratory rate 2021-08-05 16 /min [facility] 06:24:00 [facility] Body height 2021-07-30 185.4 cm [facility] of 09:49:00 [facility] Body weight 2021-07-30 65.772 kg [facility] of 09:49:00 [facility] BMI 2021-07-30 19.13 kg/m2 [facility] of 09:49:00 [facility] Systolic blood 2021-07-26 107 mm[Hg] [facility] pressure 17:32:00 [facility] Diastolic blood 2021-07-26 69 mm[Hg] [facility] f pressure 17:32:00 [facility] Heart rate 2021-07-26 70 /min [facility] 17:32:00 [facility] Body temperature 2021-07-26 36.39 Tasia [facility] 17:32:00 [facility] Respiratory rate 2021-07-26 16 /min [facility] 17:32:00 [facility] Oxygen saturation 2021-07-26 96 /min [facility] in Arterial blood 17:32:00 [facility] Body height 2021-07-23 185.4 cm [facility] 08:40:00 [facility] Body weight 2021-07-23 84.5 kg [facility] of 08:40:00 [facility] BMI 2021-07-23 24.58 kg/m2 [facility] of 08:40:00 [facility] Systolic blood 2021-06-04 95 mm[Hg] [facility] pressure 16:20:00 [facility] Diastolic blood 2021-06-04 60 mm[Hg] [facility] o f pressure 16:20:00 [facility] Heart rate 2021-06-04 61 /min [facility] of 16:20:00 [facility] Body temperature 2021-06-04 36.17 Tasia [facility] 16:20:00 [facility] Respiratory rate 2021-06-04 18 /min [facility] of 16:20:00 [facility] Oxygen saturation 2021-06-04 100 /min [facility] in Arterial blood 16:20:00 [facility] Body weight 2021-06-01 65.772 kg [facility] of 19:00:00 [facility] BMI 2021-06-01 19.13 kg/m2 [facility] of 19:00:00 [facility] Body height 2021-05-31 185.4 cm [facility] of 22:12:00 [facility] Systolic blood 2021-05-21 101 mm[Hg] [facility] pressure 20:21:00 [facility] Diastolic blood 2021-05-21 68 mm[Hg] [facility] o f pressure 20:21:00 [facility] Heart rate 2021-05-21 74 /min [facility] of 20:21:00 [facility] Body temperature 2021-05-21 36.56 Tasia [facility] 20:21:00 [facility] Respiratory rate 2021-05-21 18 /min [facility] of 20:21:00 [facility] Oxygen saturation 2021-05-21 99 /min [facility] in Arterial blood 20:21:00 [facility] Body height 2021-05-21 185.4 cm [facility] 00:15:00 [facility] Body weight 2021-05-21 65.772 kg [facility] of 00:15:00 [facility] BMI 2021-05-21 19.13 kg/m2 [facility] of 00:15:00 [facility] Systolic blood 2021-05-09 101 mm[Hg] [facility] pressure 16:32:00 [facility] Diastolic blood 2021-05-09 70 mm[Hg] [facility] f pressure 16:32:00 [facility] Heart rate 2021-05-09 69 /min [facility] of 16:32:00 [facility] Body temperature 2021-05-09 36.72 Tasia [facility] 16:32:00 [facility] Respiratory rate 2021-05-09 16 /min [facility] of 16:32:00 [facility] Oxygen saturation 2021-05-09 99 /min [facility] of in Arterial blood 16:32:00 [facility] Body height 2021-05-08 185.4 cm [facility] 05:48:00 [facility] [...] /min [facility] of in Arterial blood 04:25:00 [facility] Systolic blood 2020-09-27 103 mm[Hg] [facility] pressure 04:02:00 [facility] Diastolic blood 2020-09-27 78 mm[Hg] [facility] pressure 04:02:00 [facility] Body temperature 2020-09-27 36.72 Tasia [facility] 04:00:00 [facility] Body weight 2020-09-26 79.379 kg University of 22:35:00 [facility] BMI 2020-09-26 23.09 kg/m2 [facility] of 22:35:00 [facility] Systolic blood 2020-08-24 105 mm[Hg] [facility] pressure 17:24:00 [facility] Diastolic blood 2020-08-24 64 mm[Hg] [facility] pressure 17:24:00 [facility] Heart rate 2020-08-24 83 /min [facility] of 17:24:00 [facility] Body temperature 2020-08-24 36.56 Tasia [facility] 17:24:00 [facility] Respiratory rate 2020-08-24 16 /min [facility] of 17:24:00 [facility] Oxygen saturation 2020-08-24 98 /min [facility] in Arterial blood 17:24:00 [facility] by [facility] Body height 2020-08-23 185.4 cm [facility] of 03:19:00 [facility] Body weight 2020-08-23 79.379 kg [facility] of 03:19:00 [facility] BMI 2020-08-23 23.09 kg/m2 [facility] of 03:19:00 [facility] Systolic blood 2020-07-10 126 mm[Hg] [facility] pressure 01:32:00 [facility] Diastolic blood 2020-07-10 67 mm[Hg] [facility] pressure 01:32:00 [facility] Heart rate 2020-07-10 92 /min [facility] of :32:00 [facility] Body temperature 2020-07-10 37.17 Tasia [facility] of :32:00 [facility] Respiratory rate 2020-07-10 16 /min [facility] of :32:00 [facility] Oxygen saturation 2020-07-10 100 /min [facility] in Arterial blood 01:32:00 [facility] by [facility] Body height 2020-07-09 154.9 cm [facility] of 22:23:00 [facility] Body weight 2020-07-09 68.04 kg University of :23:00 [facility] BMI 2020-07-09 28.34 kg/m2 [facility] of 22:23:00 [facility] Systolic blood 2020-06-05 106 mm[Hg] [facility] pressure 15:00:00 [facility] Diastolic blood 2020-06-05 72 mm[Hg] [facility] pressure 15:00:00 [facility] Heart rate 2020-06-05 84 /min [facility] 15:00:00 [facility] Respiratory rate 2020-06-05 18 /min [facility] of 15:00:00 [facility] Oxygen saturation 2020-06-05 100 /min [facility] in Arterial blood 15:00:00 [facility] Body temperature 2020-06-05 [...] /min [facility] in Arterial blood 18:30:00 [facility] by [facility] Systolic [...] /min [facility] of in Arterial blood 19:59:00 [facility] Body height 2020-05-30 [...] rate 2020-05-22 90 /min [facility] of 04:38:00 [facility] Respiratory rate 2020-05-22 18 /min [facility] of 04:38:00 [facility] Oxygen saturation 2020-05-22 97 /min [facility] in Arterial blood 04:38:00 [facility] [...] 2020-05-20 95 mm[Hg] [facility] pressure 18:33:34 [facility] Diastolic blood 2020-05-20 62 mm[Hg] [facility] pressure 18:33:34 [facility] Heart rate 2020-05-20 86 /min [facility] of 18:33:34 [facility] Respiratory rate 2020-05-20 20 /min [facility] of 18:33:34 [facility] Oxygen saturation 2020-05-20 98 /min [facility] in Arterial blood 18:33:34 [facility] Body [...] /min [facility] in Arterial blood 10:58:00 [facility] by [facility] Body [...] rate 2020-05-12 74 /min [facility] 09:00:00 [facility] Respiratory rate 2020-05-12 18 /min [facility] of 09:00:00 [facility] Oxygen saturation 2020-05-12 95 /min [facility] in Arterial blood 09:00:00 [facility] by [facility] Body [...] temperature 2020-05-03 37.22 Tasia [facility] 04:30:00 [facility] Respiratory rate 2020-05-03 14 /min [facility] of 04:30:00 [facility] Body height 2020-05-03 185.4 cm [facility] of 04:30:00 [facility] Body weight 2020-05-03 65.772 kg [facility] of 04:30:00 [facility] BMI 2020-05-03 19.13 kg/m2 [facility] of 04:30:00 [facility] Systolic blood 2020-05-02 105 mm[Hg] [facility] pressure 12:46:00 [facility] Diastolic blood 2020-05-02 57 mm[Hg] University o [...] /min [facility] in Arterial blood 12:46:00 [facility] by [facility] Body [...] /min [facility] in Arterial blood 16:00:00 [facility] Body height 2020-03-26 [...] /min [facility] in Arterial blood 16:00:00 [facility] by [facility] Body [...] /min [facility] in Arterial blood 21:12:00 [facility] by [facility] Body [...] rate 2020-02-26 82 /min [facility] of 07:43:00 [facility] Respiratory rate 2020-02-26 18 /min [facility] 07:43:00 [facility] Oxygen saturation 2020-02-26 100 /min [facility] in Arterial blood 07:43:00 [facility] Body temperature 2020-02-26 [...] 2020-02-05 100 mm[Hg] [facility] pressure 16:00:00 [facility] Diastolic blood 2020-02-05 61 mm[Hg] University [...] /min [facility] in Arterial blood 16:00:00 [facility] Body height 2020-01-28 185.4 cm [facility] of 23:13:00 [facility] Body weight 2020-01-28 68.04 kg [facility] of 23:13:00 [facility] BMI 2020-01-28 19.79 kg/m2 [facility] of 23:13:00 [facility] Systolic blood 2020-02-05 100 mm[Hg] [facility] pressure 16:00:00 [facility] Diastolic blood 2020-02-05 61 mm[Hg] University [...] /min [facility] in Arterial blood 16:00:00 [facility] Body [...] /min [facility] in Arterial blood 00:32:00 [facility] by [facility] Body height 2020-01-24 185.4 cm [facility] of 23:55:00 [facility] Body weight 2020-01-24 68.04 kg [facility] of 23:55:00 [facility] BMI 2020-01-24 19.79 kg/m2 [facility] of 23:55:00 [facility] Systolic blood [...] /min [facility] of in Arterial blood 00:32:00 [facility] Body height 2020-01-24 185.4 cm University of :55:00 [facility] Body weight 2020-01-24 68.04 kg University of :55:00 [facility] BMI 2020-01-24 19.79 kg/m2 [facility] of 23:55:00 [facility] Body temperature 2019-12-13 36.72 Tasia [facility] 02:56:16 [facility] Systolic blood 2019-12-13 114 mm[Hg] [facility] pressure :57:00 [facility] Diastolic blood 2019-12-13 77 mm[Hg] University o f pressure :57:00 [facility] Heart rate 2019-12-13 75 /min [facility] of :57:00 [facility] Respiratory rate 2019-12-13 20 /min University of :57:00 [facility] Body height 2019-12-13 185.4 cm University of :57:00 [facility] Body weight 2019-12-13 68.04 kg University of :57:00 [facility] BMI 2019-12-13 19.79 kg/m2 University of :57:00 [facility] Oxygen saturation 2019-12-13 97 /min [facility] of in Arterial blood 01:57:00 [facility] by Pulse oximetry Branch Body temperature 2019-12-13 36.72 Tasia [facility] of 02:56:16 [facility] Systolic blood 2019-12-13 114 mm[Hg] University of pressure 01:57:00 [facility] Diastolic blood 2019-12-13 77 mm[Hg] University o f pressure 01:57:00 [facility] Heart rate 2019-12-13 75 /min University of :57:00 [facility] Respiratory rate 2019-12-13 20 /min University of :57:00 [facility] Body height 2019-12-13 185.4 cm University of :57:00 [facility] Body weight 2019-12-13 68.04 kg University of :57:00 [facility] BMI 2019-12-13 19.79 kg/m2 University of 01:57:00 [facility] Oxygen saturation 2019-12-13 97 /min University in Arterial blood 01:57:00 [facility] by Pulse oximetry Branch Systolic blood 2022-03-13 94 mm[Hg] [facility] pressure 15:33:00 Diastolic blood 2022-03-13 62 mm[Hg] [facility] h pressure 15:33:00 Heart rate 2022-03-13 109 /min [facility] 15:33:00 Body temperature 2022-03-[address] [facility] th 15:33:00 Respiratory rate 2022-03-13 20 /min [facility] 15:33:00 Body height 2022-03-13 185.4 cm [facility] 15:33:00 Body weight 2022-03-13 66.679 kg [facility] 15:33:00 BMI 2022-03-13 19.39 kg/m2 [facility] 15:33:00 Oxygen saturation 2022-03-13 100 /min [facility] 15:33:00 by Pulse oximetry Systolic blood 2022-03-09 107 mm[Hg] [facility] pressure 11:00:00 [facility] Diastolic blood 2022-03-09 66 mm[Hg] [facility] pressure 11:00:00 [facility] Heart rate 2022-03-09 58 /min [facility] 11:00:00 [facility] Body temperature 2022-03-[address] [facility] 11:[facility]:00 [facility] Respiratory rate 2022-03-09 16 /min [facility] 11:00:00 [facility] Oxygen saturation 2022-03-09 100 /min [facility] in Arterial blood 11:00:00 [facility] nter by Pulse oximetry Body height 2022-03-[address] [facility] 12:05:00 [facility] Body weight 2022-03-[address] [facility] 12:05:00 [facility] BMI 2022-03-06 19.13 kg/m2 [facility] 12:05:00 [facility] Procedures Procedure Date / Time Performing Clinician Source Performed COMP. METABOLIC PANEL 2022-04-10 03:54:00 [id number] CBC WITH DIFF 2022-04-10 03:49:00 Alvarez Austin [facility] LIPASE 2022-04-10 03:07:00 [facility] XR CHEST 2 VW 2022-04-10 02:59:18 Alvarez Austin [facility] COVID-19 (ID NOW RAPID 2022-04-10 02:43:00 Alvarez Austin [facility] TESTING) Medical Branch PHOSPHORUS 2022-04-08 10:26:00 [facility] MAGNESIUM 2022-04-08 10:26:00 [facility] BASIC METABOLIC PANEL (NA, 2022-04-08 10:26:00 Shelia Lemus [facility] K, CL, CO2, GLUCOSE, BUN, Medica l Branch CREATININE, CA) CBC WITH DIFF 2022-04-08 10:26:00 [facility] PHOSPHORUS 2022-04-07 09:45:00 [facility] MAGNESIUM 2022-04-07 09:45:00 [facility] BASIC METABOLIC PANEL (NA, 2022-04-07 09:45:00 Albchapincitoami Don [facility] K, CL, CO2, GLUCOSE, BUN, Medica l Branch CREATININE, CA) LACTIC ACID WHOLE BLOOD 2022-04-06 09:05:00 Rolf Lemus [facility] MAGNESIUM 2022-04-06 09:04:00 [facility] BASIC METABOLIC PANEL (NA, 2022-04-06 09:04:00 Rolf Lemus [facility] K, CL, CO2, GLUCOSE, BUN, Medica l Branch CREATININE, CA) CBC WITH DIFF 2022-04-06 09:04:00 [facility] BASIC METABOLIC PANEL (NA, 2022-04-05 08:12:00 Agatha Noonan [facility] K, CL, CO2, GLUCOSE, BUN, Medica l Branch CREATININE, CA) ACUTE CARE VENOUS BLOOD 2022-04-05 08:12:00 Octavio Macario [facility] CBC WITH DIFF 2022-04-05 08:12:00 Agatha Noonan [facility] BASIC METABOLIC PANEL (NA, 2022-04-04 09:03:00 Rolf Lemus [facility] K, CL, CO2, GLUCOSE, BUN, Medica l Branch CREATININE, CA) US RETROPERITONEAL LIMITED 2022-04-03 23:10:49 Octavio Macario [facility] ACUTE CARE VENOUS BLOOD 2022-04-03 18:33:00 Aimrah [facility] OSMOLALITY URINE 2022-04-03 17:59:00 Amirah Aultman [facility] BASIC METABOLIC PANEL (NA, 2022-04-03 17:59:00 Octavio Macario [facility] K, CL, CO2, GLUCOSE, BUN, Medica l Branch CREATININE, CA) CREATININE, URINE RANDOM 2022-04-03 17:59:00 Octavio Macario [facility] POTASSIUM, URINE RANDOM 2022-04-03 17:59:00 Amirah [facility] SODIUM, URINE RANDOM 2022-04-03 17:59:00 Octavio Macario [facility] MAGNESIUM 2022-04-03 09:29:00 Octavio Macario [facility] OSMOLALITY, SERUM OR 2022-04-03 09:29:00 Octavio Macario [facility] PLASMA [facility] BASIC METABOLIC PANEL (NA, 2022-04-03 09:29:00 Juventino Thomas [facility] K, CL, CO2, GLUCOSE, BUN, Medica l Branch CREATININE, CA) CBC WITH DIFF 2022-04-03 09:29:00 Juventino Thomas [facility] CLOSTRIDIUM DIFFICILE 2022-04-03 03:44:00 Juventino Thomas [facility] LACTIC ACID WHOLE BLOOD 2022-04-03 03:38:00 Juventino Thomas [facility] LACTIC ACID WHOLE BLOOD 2022-04-03 00:07:00 Juventino Thomas [facility] URINE CULTURE 2022-04-02 22:39:00 Rekha Sheehan [facility] CT ABDOMEN PELVIS WO 2022-04-02 21:07:00 Rekha Sheehan [facility] CONTRAST [facility] LIPASE 2022-04-02 20:00:00 Aguila [facility] TROPONIN I 2022-04-02 20:00:00 Aguila [facility] HEPATIC FUNCTION PANEL 2022-04-02 20:00:00 Rekha Sheehan [facility] ([id number]) (ALB,T.PRO,BILI Medical Branch T,BU/BC,ALT,AST,ALK PHOS) BASIC METABOLIC PANEL (NA, 2022-04-02 20:00:00 Rekha Sheehan [facility] K, CL, CO2, GLUCOSE, BUN, Medica l Branch CREATININE, CA) URINALYSIS 2022-04-02 20:00:00 Aguila [facility] CBC WITH DIFF 2022-04-02 18:20:00 Aguila [facility] COVID-19 (ID NOW RAPID 2022-04-02 18:20:00 Aguila [facility] TESTING) Medical Branch LAB ONLY COVID 2022-04-02 18:20:00 Aguila [facility] XR CHEST 2 VW 2022-04-02 17:29:13 Aguila [facility] HB ECG ROUTINE & RHYTHM 2022-04-02 16:32:43 Rekha Sheehan [facility] STRIP Medical Branch CONSENT/REFUSAL FOR 2022-04-02 16:29:46 Doctor Unassigned, [facility] DIAGNOSIS AND TREATMENT [place] [facility] BASIC METABOLIC PANEL (7) 2022-03-07 05:51:00 Romie Kuo [facility] HEPATIC FUNCTION PANEL 2022-03-07 05:51:00 Romie Kuo [facility] CBC W/PLT COUNT & AUTO 2022-03-07 05:51:00 Romie Kuo [facility] CBC W/PLT COUNT & AUTO 2022-03-07 05:51:00 [facility] COMPLETE 2022-03-06 18:23:00 [facility] SARS-COV2/RT-PCR ([facility] & 2022-03-06 17:36:00 [facility] REF LABS) Center TSH/FREE T4 IF INDICATED 2022-03-06 14:18:00 [facility], FREE 2022-03-06 14:18:00 [facility] INTERPRETATION 2022-03-06 13:48:12 [facility]ST 1 VIEW PORTABLE / 2022-03-06 13:42:00 Aryan Tello [facility] BEDSIDE [facility] B-TYPE NATRIURETIC FACTOR 2022-03-06 13:23:00 Aryan Tello [facility] (BNP) [facility] CBC W/PLT COUNT & AUTO 2022-03-06 13:23:00 Aryan Tello [facility] DIFFERENTIAL [facility] COMPREHENSIVE METABOLIC 2022-03-06 13:23:00 Aryan Tello [facility] PANEL [facility] HIGH SENSITIVITY TROPONIN 2022-03-06 13:23:00 Aryan Tello [facility] MAGNESIUM 2022-03-06 13:23:00 Aryan Tello [facility] PHOSPHORUS 2022-03-06 13:23:00 [facility] LACTIC ACID, VENOUS 2022-03-06 13:23:00 Aryan Tello [facility] CREATINE KINASE (CK) 2022-03-06 13:23:00 [facility] CBC W/PLT COUNT & AUTO 2022-03-06 13:23:00 Aryan Tello [facility] ECG 12-LEAD 2022-03-06 12:12:56 Unknown, Hl7 [facility] ECG 12-LEAD 2022-03-06 12:12:56 Unknown, Hl7 [facility] ECG 12-LEAD 2022-03-06 12:12:56 Unknown, Hl7 [facility] EKG-SCANNED 2022-03-06 00:00:00 Provider, Jacqui [facility] CBC (WITHOUT DIFFERENTIAL) 2022-02-20 05:10:00 Rufino Lazaro [facility] BASIC METABOLIC PANEL 2022-02-20 05:10:00 Rufino Lazaro Health MAGNESIUM 2022-02-20 05:10:00 Rufino Lazaro PHOSPHORUS 2022-02-20 05:10:00 Rufino Lazaro INFUSION PUMP 2022-02-19 19:03:50 Rufino Lazaro COMPREHENSIVE METABOLIC 2022-02-19 06:35:00 Fannie Blake [facility] PANEL CBC/DIFF 2022-02-19 06:35:00 Fannie Blake alth PHOSPHORUS 2022-02-19 06:35:00 Fannie lBake alth CBC 2022-02-19 06:35:00 Fannie Blake alth URINALYSIS W/REFLEX TO 2022-02-19 00:34:00 Fannie Blake [facility] URINE CULTURE URINALYSIS 2022-02-19 00:34:00 [facility] COLLECTION 2022-02-19 00:34:00 Chadd Palacios [facility] KIT SARS-COV-2, FLU A/B, RSV 2022-02-18 19:00:00 Chadd Palacios [facility] CORONAVIRUS, COVID-19, OLENA 2022-02-18 19:00:00 Chadd Palacios [facility] XRAY CHEST 1 VIEW 2022-02-18 15:23:00 Roz Scales [facility] CONSULT CLINICAL CASE 2022-02-18 14:50:50 Roz Scales Health MANAGEMENT (RN/SW) CBC/DIFF 2022-02-18 14:16:00 AlbabSusana [facility] BASIC METABOLIC PANEL 2022-02-18 14:16:00 Albab, Susana [facility] MAGNESIUM 2022-02-18 14:16:00 AlbabSusana [facility] PHOSPHORUS 2022-02-18 14:16:00 [facility] CREATINE KINASE (CK) 2022-02-18 14:16:00 [facility] CBC 2022-02-18 14:16:00 Albab, Susana [facility] BASIC METABOLIC PANEL 2022-02-11 03:34:00 Daily [facility] MAGNESIUM 2022-02-11 03:34:[address] [facility] th PHOSPHORUS 2022-02-11 03:34:00 [facility] CBC (WITHOUT DIFFERENTIAL) 2022-02-11 03:34:00 [facility] CBC/DIFF 2022-02-10 03:39:00 Daily Islas [facility] h BASIC METABOLIC PANEL 2022-02-10 03:39:00 Rosas Islas CBC 2022-02-10 03:39:00 [facility] STIMULATING 2022-02-10 03:39:00 [facility] HORMONE (TSH) FREE T4 2022-02-10 03:39:00 [facility] CBC/DIFF 2022-02-09 04:38:[address] [facility] BAS[facility] METABOLIC PANEL 2022-02-09 04:38:00 Rosas sIlas CBC 2022-02-09 04:38:00 [facility] CORTISOL, TOTAL 2022-02-08 11:37:00 Jian Schmitt [facility] ealth GLUCOSE POC 2022-02-08 08:07:00 Daily Islas [facility] h CBC (WITHOUT DIFFERENTIAL) 2022-02-08 04:00:00 Jian Sch[facility] COMPREHENSIVE METABOLIC 2022-02-08 04:00:00 Jian Schmitt [facility] PANEL PHOSPHORUS 2022-02-08 04:00:00 Jian Schmitt [facility] MAGNESIUM 2022-02-08 04:00:00 Jian Schmitt deborah PT/INR 2022-02-08 04:00:00 Jian Schmitt [facility] URINALYSIS W/REFLEX TO 2022-02-07 18:06:00 Areli Arciniega [facility] URINE CULTURE URINALYSIS 2022-02-07 18:06:00 Areli Arciniega alth URINE CULTURE COLLECTION 2022-02-07 18:06:00 Areli Arciniega [facility] KIT ELECTROLYTES, URINE 2022-02-07 18:06:00 Jyoti Carrillo [facility] OSMOLALITY, URINE 2022-02-07 18:06:00 Jyoti Carrillo [facility] SARS-COV-2, FLU A/B, RSV 2022-02-07 18:05:00 Jyoti Carrillo [facility] CORONAVIRUS, COVID-19, OLENA 2022-02-07 18:05:00 Jyoti Carrillo [facility] NUTRITION CONSULT 2022-02-07 17:43:36 Jian Schmitt [facility] ASSESSMENT BASIC METABOLIC PANEL 2022-02-07 17:18:00 Jyoti Carrillo [facility] LACTIC ACID 2022-02-07 14:04:00 Areli Arciniega alth CBC/DIFF 2022-02-07 14:03:00 Areli Arciniega alth BASIC METABOLIC PANEL 2022-02-07 14:03:00 Areli Arciniega [facility] LIVER PROFILE 2022-02-07 14:03:00 Areli Arciniega alth LIPASE 2022-02-07 14:03:00 Areli Arciniega alth MAGNESIUM 2022-02-07 14:03:00 Areli Arciniega alth PHOSPHORUS 2022-02-07 14:03:00 Areli Arciniega alth TROPONIN I 2022-02-07 14:03:00 Areli Arciniega alth CBC 2022-02-07 14:03:00 Areli Arciniega Lynne alth 12 LEAD EKG 2022-01-21 15:46:10 Ori Goldberg [facility] CBC/DIFF 2022-01-21 04:11:00 LindseyTien [facility] MAGNESIUM 2022-01-21 04:11:00 LindseyNoeh P [facility] PHOSPHORUS 2022-01-21 04:11:00 Lindsey, Tien P [facility] BASIC METABOLIC PANEL 2022-01-21 04:11:00 Ori Goldberg [facility] CBC 2022-01-21 04:11:00 Lindsey, Tien P [facility] CBC/DIFF 2022-01-20 04:37:00 Lindsey, Tien P [facility] MAGNESIUM 2022-01-20 04:37:00 Lindsey Tien P [facility] PHOSPHORUS 2022-01-20 04:37:00 LindseyNoeh P [facility] BASIC METABOLIC PANEL 2022-01-20 04:37:00 LindseyTien P [facility] CBC 2022-01-20 04:37:00 Lindsey, Tien P [facility] MAGNESIUM 2022-01-19 18:09:00 [facility], Tien P [facility] PHOSPHORUS 2022-01-19 18:09:00 Lindsey, Tien P [facility] BASIC METABOLIC PANEL 2022-01-19 18:09:00 [facility], Tien P [facility] CORTISOL, TOTAL 2022-01-19 18:09:00 Karin Bassett [facility] URINALYSIS W/REFLEX TO 2022-01-19 17:22:00 LindseyNoeh P [facility] URINE CULTURE URINALYSIS 2022-01-19 17:22:00 LindseyTien herrera P [facility] URINE CULTURE COLLECTION 2022-01-19 17:22:00 Tien Lucas [facility] Health KIT COMPUTED TOMOGRAPHY 2022-01-19 13:29:00 LindseyNoeh P [facility] ABDOMEN AND PELVIS WITHOUT CONTRAST CBC/DIFF 2022-01-19 04:44:00 Lindsey Tien P [facility] CBC 2022-01-19 04:44:00 Tien Lucas [facility] DIFFERENTIAL, MANUAL (NO 2022-01-19 04:44:00 Tien Lucas [facility] BASIC METABOLIC PANEL 2022-01-18 17:15:00 [facility] CBC/DIFF 2022-01-18 04:46:00 Tien Lucas [facility] MAGNESIUM 2022-01-18 04:46:00 Tien Lucas [facility] PHOSPHORUS 2022-01-18 04:46:00 Tien Lucas [facility] BASIC METABOLIC PANEL 2022-01-18 04:46:00 Ori Goldberg [facility] CBC 2022-01-18 04:46:00 Tien Lucas [facility] HIV AG/AB COMBO ROUTINE 2022-01-18 04:46:00 Karin Bassett [facility] SCREENING ENTERIC PATHOGENS NUCLEIC 2022-01-18 03:25:00 Karin Bassett [facility] ACID TEST BASIC METABOLIC PANEL 2022-01-18 00:29:00 Ori Goldberg [facility] BASIC METABOLIC PANEL 2022-01-17 17:07:00 LindseyTien P [facility] BASIC METABOLIC PANEL 2022-01-17 13:15:00 [facility] CAL[facility]ECT[facility] FECAL 2022-01-17 12:38:00 Tien Lucas ealth FECAL LEUKOCYTES 2022-01-17 12:38:00 Tien Lucas [facility] lt T-TRANSGLUTAMINASE IGA 2022-01-17 12:22:00 Lindsey, Tien [facility] BASIC METABOLIC PANEL 2022-01-17 08:51:00 LindseyNoeh P [facility] BASIC METABOLIC PANEL 2022-01-17 04:47:00 Tien Lucas [facility] CBC/DIFF 2022-01-17 04:47:00 Tien Lucas [facility] MAGNESIUM 2022-01-17 04:47:00 LindseyNoe herrerah Etsher [facility] PHOSPHORUS 2022-01-17 04:47:00 Lindsey Tien Esther Lynne [facility] CBC 2022-01-17 04:47:00 Lindsey Tien Esther [facility] BASIC METABOLIC PANEL 2022-01-17 00:08:00 LindseyTien [facility] 12 LEAD EKG 2022-01-16 21:23:25 Tien Lucas [facility] BASIC METABOLIC PANEL 2022-01-16 21:08:00 LindseyTien Health XRAY CHEST 2 VIEWS 2022-01-16 19:56:00 Lindsey Tien P [facility] ealth IP CONSULT TO PHYSICAL 2022-01-16 19:17:17 Tien [facility] THERAPY CONSULT CLINICAL CASE 2022-01-16 19:17:17 LindseyNoe herreragera lopez Health MANAGEMENT (RN/SW) SEQUENTIAL COMPRESSION 2022-01-16 19:17:17 Tien Lucas [facility] PUMP SODIUM, URINE, RANDOM 2022-01-16 16:00:00 NievesKevin barreto [facility] CREATININE, URINE, RANDOM 2022-01-16 16:00:00 Nieves, Colin [facility] OSMOLALITY, URINE 2022-01-16 16:00:00 NievesKevin barreto [facility] SARS-COV-2, FLU A/B, RSV 2022-01-16 15:20:00 Nieves, Colin [facility] CORONAVIRUS, COVID-19, OLENA 2022-01-16 15:20:00 Nieves, Colin [facility] FOLIC ACID 2022-01-16 14:13:00 Kevin Nieves [facility] ealt CREATININE POC 2022-01-16 13:55:00 Raymon Martin h BMP POC 2022-01-16 13:46:00 Raymon Maritn h CBC/DIFF 2022-01-16 12:12:00 Raymon Martint h CBC 2022-01-16 12:12:00 Raymon Martint h BASIC METABOLIC PANEL 2022-01-16 12:11:00 Sadiq Vargas is Health MAGNESIUM 2022-01-16 12:11:00 Sadiq Vargas [facility] VITAMIN B12 2022-01-16 12:11:00 Kevin Nieves ealth OSMOLALITY,SERUM 2022-01-16 12:11:00 Kevin Nieves [facility] INFUSION PUMP 2022-01-11 09:21:05 Helene Anderson [facility] GLUCOSE POC 2022-01-11 07:54:00 Helene Anderson [facility] BASIC METABOLIC PANEL 2022-01-11 04:07:00 Merissa Richards [facility] MAGNESIUM 2022-01-11 04:07:[address] [facility] 2022-01-11 04:07:00 Merissa Richards [facility] h CBC/DIFF 2022-01-11 04:06:00 Merissa Richards [facility] h IRON PROFILE 2022-01-11 04:06:00 Merissa Richards [facility] h FOLIC ACID 2022-01-11 04:06:00 Merissa Richards [facility] h CBC 2022-01-11 04:06:00 Merissa Richards [facility] h GLUCOSE POC 2022-01-10 18:16:00 Helene Anderson [facility] URINALYSIS 2022-01-10 16:10:00 Merissa Richards [facility] h URINALYSIS 2022-01-10 16:10:00 Merissa Richards [facility] h SARS-COV-2, FLU A/B, RSV 2022-01-10 15:54:00 Merissa Richards [facility] CORONAVIRUS, COVID-19, OLENA 2022-01-10 15:54:00 Antoine Hester [facility] BASIC METABOLIC PANEL 2022-01-10 15:54:00 Merissa Richards [facility] VITAMIN B12 2022-01-10 15:54:00 Merissa Richards [facility] h VBG POC 2022-01-10 11:14:[address] Dia [address] [facility] CBC/DIFF 2022-01-10 11:13:00 Antoine Hester [facility] h BASIC METABOLIC PANEL 2022-01-10 11:13:00 Antoine Hester [facility] LACTIC ACID 2022-01-10 11:13:00 [facility] CBC 2022-01-10 11:13:00 Antoine Hester [facility] h LIVER PROFILE 2022-01-10 11:13:00 Fercho Merissa Q [facility] h CK, TOTAL 2022-01-10 11:13:00 [facility] FERRITIN 2022-01-10 11:13:00 Merissa Richards [facility] h CREATINE KINASE MB (CKMB) 2022-01-10 11:13:00 Fercho Merissa Q [facility] XRAY CHEST 2 VIEWS 2022-01-08 21:50:14 Tanja [facility] CBC/DIFF 2022-01-08 21:27:00 Tanja Sebastian [facility] BASIC METABOLIC PANEL 2022-01-08 21:27:00 Tanja Sebastian [facility] LIVER PROFILE 2022-01-08 21:27:00 Tanja Sebastian [facility] lt CK, TOTAL 2022-01-08 21:27:00 Randa Sebastianandra Watson [facility] lt TROPONIN I 2022-01-08 21:27:00 Tanja Sebastian [facility] lt CBC 2022-01-08 21:27:00 Randa Sebastianandra Watson [facility] CREATINE KINASE MB (CKMB) 2022-01-08 21:27:00 Tanja Sebastian [facility] 12 LEAD EKG 2022-01-08 20:59:56 Tanja Sebastian [facility] lt COMP. METABOLIC PANEL 2021-09-14 03:41:00 Mickey Ramos [facility] ([id number]) Medical Branch CBC WITH DIFF 2021-09-14 03:41:00 Mickey Ramos [facility] CT HEAD WO CONTRAST 2021-09-12 14:10:00 Alona Carty [facility] TROPONIN I 2021-09-12 13:00:00 [facility] BASIC METABOLIC PANEL (NA, 2021-09-12 13:00:00 Odin [facility] K, CL, CO2, GLUCOSE, BUN, Medica l Branch CREATININE, CA) CBC WITH DIFF 2021-09-12 13:00:00 [facility] N-TERMINAL PRO-BNP 2021-09-12 13:00:00 Alona Carty [facility] LIPASE 2021-09-09 05:30:00 Sebastian Pacheco [facility] COMP. METABOLIC PANEL 2021-09-09 05:30:00 Sebastian Pacheco [facility] ([id number]) [facility] CBC WITH DIFF 2021-09-09 05:30:00 Sebastian Pacheco [facility] URINALYSIS 2021-09-08 04:45:00 Sebastian Pacheco [facility] CT ABDOMEN PELVIS W 2021-09-08 02:25:23 Sebastian Pacheco [facility] CONTRAST [facility] LIPASE 2021-09-08 02:02:00 Sebastian Pacheco [facility] COMP. METABOLIC PANEL 2021-09-08 02:02:00 Sebastian Pacheco [facility] ([id number]) [facility] CBC WITH DIFF 2021-09-08 02:02:00 Sebastian Pacheco [facility] LACTIC ACID WHOLE BLOOD 2021-09-08 02:02:00 Sebastian Pacheco [facility] COVID-19 (ID NOW RAPID 2021-09-08 01:54:00 Sebastian Pacheco [facility] TESTING) [facility] BASIC METABOLIC PANEL (NA, 2021-09-04 12:30:00 Demario Godoy [facility] K, CL, CO2, GLUCOSE, BUN, Medica l Branch CREATININE, CA) BASIC METABOLIC PANEL (NA, 2021-09-04 12:30:00 Demario Godoy [facility] K, CL, CO2, GLUCOSE, BUN, Medica l Branch CREATININE, CA) SURGICAL PATHOLOGY EXAM 2021-09-03 14:01:[address] [facility] COLOSTOMY REVISION 2021-09-03 12:58:00 Mayela [facility] COLOSTOMY REVISION 2021-09-03 12:58:00 [facility] BASIC METABOLIC PANEL (NA, 2021-09-03 11:26:00 Siddiqi, Cynthia [employer] [facility] K, CL, CO2, GLUCOSE, BUN, Medica l Branch CREATININE, CA) CBC WITHOUT DIFF 2021-09-03 11:26:00 Siddiqi, [facility] BASIC METABOLIC PANEL (NA, 2021-09-03 11:26:00 Siddiqi, Cynthia [employer] [place] K, CL, CO2, GLUCOSE, BUN, Medica l Branch CREATININE, CA) CBC WITHOUT DIFF 2021-09-03 11:26:00 Siddiqi, [facility] TRANSTHORACIC ECHO (TTE) 2021-09-02 21:22:12 Siddiqi, Cynthia [facility] COMPLETE W/ CONTRAST [facility] TRANSTHORACIC ECHO (TTE) 2021-09-02 21:22:12 Siddiqi, [facility] COMPLETE W/ CONTRAST [facility] COVID-19 (ID NOW RAPID 2021-09-02 19:35:00 Demario Godoy [facility] TESTING) Medical Branch LAB ONLY COVID 2021-09-02 19:35:00 Demario Godoy [facility] INTERPRETATION Medical Branch COVID-19 (ID NOW RAPID 2021-09-02 19:35:00 Demario Godoy [facility] TESTING) Medical Branch LAB ONLY COVID 2021-09-02 19:35:00 Demario Godoy [facility] INTERPRETATION Medical Branch BASIC METABOLIC PANEL [...] BASIC METABOLIC PANEL (NA, 2021-09-01 21:20:00 Siddiqi, [facility] K, CL, CO2, GLUCOSE, BUN, Medica l Branch CREATININE, CA) BLOOD CULTURE SCREEN 2021-09-01 08:03:00 [facility] PANEL (NA, 2021-09-01 08:03:00 Siddiqi, [facility] K, CL, CO2, GLUCOSE, BUN, Medica l Branch CREATININE, CA) CBC WITH DIFF 2021-09-01 08:03:00 Siddiqi, [facility] BLOOD CULTURE SCREEN 2021-09-01 08:03:00 [facility]OLIC PANEL (NA, 2021-09-01 08:03:00 Siddiqi, [facility] K, CL, CO2, GLUCOSE, BUN, Medica l Branch CREATININE, CA) CBC WITH DIFF 2021-09-01 08:03:00 Siddiqi, [facility] MAGNESIUM 2021-09-01 02:09:00 [facility]OL[facility] PANEL (NA, 2021-09-01 02:09:00 Roberto [facility] K, CL, CO2, GLUCOSE, BUN, Arpita Medica l Branch CREATININE, CA) MAGNESIUM 2021-09-01 02:09:00 [facility] BASIC METABOLIC PANEL (NA, 2021-09-01 02:09:00 Roberto [facility] K, CL, CO2, GLUCOSE, BUN, [facility] Medica [facility] CREATININE, CA) LACTIC ACID WHOLE BLOOD 2021-08-31 12:40:00 Siddiqi, [facility] LACTIC ACID WHOLE BLOOD 2021-08-31 12:40:00 Siddiqi, [facility] BASIC METABOLIC PANEL (NA, 2021-08-31 11:44:00 [facility], CO2, GLUCOSE, BUN, Medica l Branch CREATININE, CA) BASIC METABOLIC PANEL (NA, 2021-08-31 11:44:00 Gaspar, [facility] K, CL, CO2, GLUCOSE, BUN, Medica l Branch CREATININE, CA) BASIC METABOLIC PANEL (NA, 2021-08-31 06:29:00 Chasity [facility] K, CL, CO2, GLUCOSE, BUN, Medica l Branch CREATININE, CA) LACTIC ACID WHOLE BLOOD 2021-08-31 06:29:00 [facility] PANEL (NA, 2021-08-31 06:29:00 Chasity [facility] K, CL, CO2, GLUCOSE, BUN, Medica l Branch CREATININE, CA) LACTIC ACID WHOLE BLOOD 2021-08-31 06:29:00 Chasity [facility] BLOOD CULTURE SCREEN 2021-08-31 06:28:00 Chasity [facility] BLOOD CULTURE WORKUP 2021-08-31 06:28:00 Chasity [facility] GRAM POSITIVE BLOOD 2021-08-31 06:28:00 [facility] PROBE-AEROBIC BLOOD CULTURE SCREEN 2021-08-31 06:28:00 Chasity [facility] BLOOD CULTURE WORKUP 2021-08-31 06:28:00 Chasity [facility] GRAM POSITIVE BLOOD 2021-08-31 06:28:00 [facility] PROBE-AEROBIC XR CHEST 2 VW 2021-08-31 03:08:[address] [facility] XR CHEST 2 VW 2021-08-31 03:08:[address] [facility] OSMOLALITY, SERUM OR 2021-08-31 02:44:00 [facility] TROPONIN I 2021-08-31 02:44:[address] [facility] THYROID STIMULATING 2021-08-31 02:44:00 [facility] HORMONE [facility] BASIC METABOLIC PANEL (NA, 2021-08-31 02:44:[address] [facility] K, CL, CO2, GLUCOSE, BUN, [facility] CREATININE, CA) OSMOLALITY, SERUM OR 2021-08-31 02:44:00 [facility] TROPONIN I 2021-08-31 02:44:[address] [facility] THYROID STIMULATING 2021-08-31 02:44:00 Chasity [facility] HORMONE [facility] BASIC METABOLIC PANEL (NA, 2021-08-31 02:44:00 [facility], CL, CO2, GLUCOSE, BUN, [facility] [place] CREATININE, CA) OSMOLALITY URINE 2021-08-31 00:08:00 [facility] 2021-08-31 00:08:[address] [facility] SODIUM, URINE RANDOM 2021-08-31 00:08:00 Chasity [facility] CHLORIDE, URINE RANDOM 2021-08-31 00:08:00 [facility] [place] [facility]SM[facility]INE 2021-08-31 00:08:00 Chasity [facility] URINALYSIS 2021-08-31 00:08:[address] [facility] SODIUM, URINE RANDOM 2021-08-31 00:08:00 [facility] CHL[facility], URINE RANDOM 2021-08-31 00:08:00 Chasity [facility] TROPONIN I 2021-08-30 23:27:[address] [facility] COMP. METABOLIC PANEL 2021-08-30 23:27:00 Riccardo [facility] ([id number]) [facility] CBC WITH DIFF 2021-08-30 23:27:[address] [facility] N-TERMINAL PRO-BNP 2021-08-30 23:27:00 Gayatri Gu [facility] TROPONIN I 2021-08-30 23:27:[address] [facility] COMP. METABOLIC PANEL 2021-08-30 23:27:00 Riccardo [facility] ([id number]) [facility] CBC WITH DIFF 2021-08-30 23:27:00 [facility] N-[facility]MINAL PRO-BNP 2021-08-30 23:27:00 Gayatri Gu [facility] HB ECG ROUTINE & RHYTHM 2021-08-30 23:04:48 Gayatri Gu [facility] HB ECG ROUTINE & RHYTHM 2021-08-30 23:04:48 Gayatri Gu [facility] XR CHEST 1 VW 2021-08-30 00:31:51 Alvarez Austin [facility] POCT RAPID STREP SCREEN 2021-08-30 00:24:00 Alvarez Austin [facility] FOR GROUP A [facility] GALV ONLY - INFLUENZA A B 2021-08-30 00:15:00 Alvarez Austin [facility] RSV PCR [facility] COVID-19 (MOLECULAR 2021-08-30 00:15:00 Alvarez Austin [facility] TESTING [facility] NUCLEIC ACID AMPLIFICATION) PREALBUMIN, SERUM 2021-08-05 10:46:00 Jessica Guerrero [facility] PHOSPHORUS 2021-08-05 10:46:00 [facility] 2021-08-05 10:46:00 Cesar [facility] MAGNESIUM 2021-08-05 10:46:00 Cesar [facility] BASIC METABOLIC PANEL (NA, 2021-08-05 10:46:00 Jessica Guerrero [facility] K, CL, CO2, GLUCOSE, BUN, Medica l Branch CREATININE, CA) CBC WITH DIFF 2021-08-05 10:46:00 Jessica Guerrero [facility] COVID-19 (ID NOW RAPID 2021-08-05 00:29:00 Jessica Guerrero [facility] TESTING Medical Branch PHOSPHORUS 2021-08-04 11:37:00 Hakeem Jo [facility] MAGNESIUM 2021-08-04 11:37:00 [facility] BASIC METABOLIC PANEL (NA, 2021-08-04 11:37:00 Hakeem Jo [facility] K, CL, CO2, GLUCOSE, BUN, [place] CREATININE, CA) CBC WITH DIFF 2021-08-04 11:37:00 Hakeem Jo [facility] PHOSPHORUS 2021-08-03 10:36:00 Hakeem Jo [facility] MAGNESIUM 2021-08-03 10:36:00 [facility] BASIC METABOLIC PANEL (NA, 2021-08-03 10:36:00 Hakeem Jo [facility] K, CL, CO2, GLUCOSE, BUN, [place] CREATININE, CA) CBC WITH DIFF 2021-08-03 10:36:00 Hakeem Jo [facility] PHOSPHORUS 2021-08-02 10:53:00 Hakeem Jo [facility] MAGNESIUM 2021-08-02 10:53:00 [facility] BASIC METABOLIC PANEL (NA, 2021-08-02 10:53:00 Hakeem Jo, [facility] K, CL, CO2, GLUCOSE, BUN, [place] [facility] CREATININE, CA) CBC WITH DIFF 2021-08-02 10:53:00 Hakeem Jo [facility] PHOSPHORUS 2021-08-01 10:03:00 Hakeem Jo [facility] MAGNESIUM 2021-08-01 10:03:00 Hakeem Jo [facility] BASIC METABOLIC PANEL (NA, 2021-08-01 10:03:00 Hakeem Jo, U [facility] K, CL, CO2, GLUCOSE, BUN, [facility] [place] CREATININE, CA) CBC WITH DIFF 2021-08-01 10:03:00 Hakeem Jo [facility] PREALBUMIN, SERUM 2021-07-31 10:22:00 [facility] [place] [facility] PHOSPHORUS 2021-07-31 10:22:00 Hakeem Jo [facility] MAGNESIUM 2021-07-31 10:22:00 [facility] BASIC METABOLIC PANEL (NA, 2021-07-31 10:22:00 Hakeem Jo, U [facility] K, CL, CO2, GLUCOSE, BUN, [facility] CREATININE, CA) CBC WITH DIFF 2021-07-31 10:22:00 Hakeem Jo [facility] COVID-19 (ID NOW RAPID 2021-07-30 06:13:00 Jonah Rees [facility] TESTING) Medical Branch LAB ONLY COVID 2021-07-30 06:13:00 Jonah Rees [facility] INTERPRETATION [facility] CT ABDOMEN PELVIS W 2021-07-30 05:19:01 Jonah Rees [facility] CONTRAST [facility] COMP. METABOLIC PANEL 2021-07-30 03:25:00 Jonah Rees [facility] ([id number]) [facility] LACTIC ACID WHOLE BLOOD 2021-07-30 02:53:00 Jonah Rees [facility] Medical Branch LIPASE 2021-07-30 02:52:00 Jonah Rees [facility] CBC WITH DIFF 2021-07-30 02:52:00 Jonah Rees [facility] CONSENT/REFUSAL FOR 2021-07-30 02:09:09 Doctor Unassigned, [facility] DIAGNOSIS AND TREATMENT [place] [facility] PHOSPHORUS 2021-07-26 12:30:00 Antonino Dietrich [facility], [place] [facility] MAGNESIUM 2021-07-26 12:30:00 Antonino Karlo [facility]eda, [place] [facility] BASIC METABOLIC PANEL (NA, 2021-07-26 12:30:00 Antonino Karlo de [employer] [place] K, CL, CO2, GLUCOSE, BUN, [place], [place] [facility] CREATININE, CA) CBC WITH DIFF 2021-07-26 12:30:00 Antonino Dietrich [facility] [place], [facility] h PHOSPHORUS 2021-07-25 11:32:00 [facility] 2021-07-25 11:32:00 [facility] BASIC METABOLIC PANEL (NA, 2021-07-25 11:32:00 Antonino Karlo de [employer] [place] K, CL, CO2, GLUCOSE, BUN, [place], [place] [facility] CREATININE, CA) CBC WITH DIFF 2021-07-25 11:32:00 Antonino Dietrich [facility] [place], [place] [facility] h CBC WITH DIFF 2021-07-25 04:13:00 Cesar, [facility] PHOSPHORUS 2021-07-24 12:18:00 Cesar, [facility] MAGNESIUM 2021-07-24 12:18:00 Cesar, [facility] BASIC METABOLIC PANEL (NA, 2021-07-24 12:18:00 Cesar Adil [employer] [place] K, CL, CO2, GLUCOSE, BUN, Medica l Branch CREATININE, CA) COVID-19 (ID NOW RAPID 2021-07-23 15:23:00 Flaco Lemus [facility] TESTING) Medical Branch LAB ONLY COVID 2021-07-23 15:23:00 Flaco Lemus [facility] INTERPRETATION [facility] URINALYSIS 2021-07-23 12:49:00 Hakeem Jo [facility] PHOSPHORUS 2021-07-23 12:42:00 Hakeem Jo [facility] MAGNESIUM 2021-07-23 12:42:00 Hakeem Jo [facility] BASIC METABOLIC PANEL (NA, 2021-07-23 12:42:00 Beau Benedict [facility] K, CL, CO2, GLUCOSE, BUN, [place] [facility] CREATININE, CA) CBC WITH DIFF 2021-07-23 12:42:00 Hakeem Jo [facility] CT ABDOMEN PELVIS WO 2021-07-23 08:55:17 Flaco Lemus [facility] EXTERNAL PROVIDER RECORDS 2021-06-25 05:01:00 Doctor Unassigned, [facility] [place] [facility] BASIC METABOLIC PANEL (NA, 2021-06-03 10:37:00 Shweta Anderson [facility] K, CL, CO2, GLUCOSE, BUN, Medica l Branch CREATININE, CA) BASIC METABOLIC PANEL (NA, 2021-06-02 10:54:00 Shweta Anderson [facility] K, CL, CO2, GLUCOSE, BUN, Medica l Branch CREATININE, CA) CLOSTRIDIUM DIFFICILE 2021-06-01 22:51:00 JordonWilfrid [facility] TOXIN [facility] FECAL PATHOGENS BY PCR 2021-06-01 22:51:00 JordonWilfrid [facility] BASIC METABOLIC PANEL (NA, 2021-06-01 15:42:00 Shweta Anderson [facility] K, CL, CO2, GLUCOSE, BUN, Medica l Branch CREATININE, CA) LACTIC ACID WHOLE BLOOD 2021-06-01 05:38:00 Clementine Castellon [facility] CT ABDOMEN PELVIS W 2021-05-31 23:25:45 Willie Garrett [facility] LIPASE 2021-05-31 22:44:00 Willie Garrett [facility] TROPONIN I 2021-05-31 22:44:00 Willie Garrett [facility] COMP. METABOLIC PANEL 2021-05-31 22:44:00 Willie Garrett [facility] ([id number]) [facility] CBC WITH DIFF 2021-05-31 22:44:00 Willie Garrett [facility] COVID-19 (ID NOW RAPID 2021-05-31 22:44:00 Willie Garrtet [facility] TESTING) Medical Branch LAB ONLY COVID 2021-05-31 22:44:00 Willie Garrett [facility] INTERPRETATION [facility] PHOSPHORUS 2021-05-21 09:03:00 Cesar [facility] MAGNESIUM 2021-05-21 09:03:00 Cesar [facility] BASIC METABOLIC PANEL (NA, 2021-05-21 09:03:00 Agatha Noonan [facility] K, CL, CO2, GLUCOSE, BUN, Medica l Branch CREATININE, CA) CBC WITH DIFF 2021-05-21 09:03:00 Agatha Noonan [facility] XR KUB 2021-05-20 20:02:49 Andrzej [facility] LIPASE 2021-05-20 20:00:00 Andrzej [facility] COMP. METABOLIC PANEL 2021-05-20 20:00:00 Bernardo Donnelly [facility] ([id number]) Medical Branch CBC WITH DIFF 2021-05-20 20:00:00 Andrzej [facility] LACTIC ACID WHOLE BLOOD 2021-05-20 20:00:00 Bernardo Donnelly [facility] COVID-19 (ID NOW RAPID 2021-05-20 20:00:00 Bernardo Donnelly [facility] TESTING) Medical Branch BASIC METABOLIC PANEL (NA, 2021-05-08 10:04:00 Abu Rodrick Lora [facility] K, CL, CO2, GLUCOSE, BUN, Medica l Branch CREATININE, CA) CBC WITH DIFF 2021-05-08 10:04:00 Abu [facility] 2021-05-08 09:44:22 Beto [facility] XR ABDOMEN 1 VW 2021-05-08 05:32:36 Abu Geno [facility] CT ABDOMEN PELVIS W 2021-05-08 01:08:43 Alona Pérez [facility] CONTRAST Medical Branch HEPATIC FUNCTION PANEL 2021-05-08 00:49:00 Beto [facility] ([id number]) (ALB,T.PRO,BILI Medical Branch T,BU/BC,ALT,AST,ALK PHOS) BASIC METABOLIC PANEL (NA, 2021-05-08 00:49:00 Alona Pérez [facility] K, CL, CO2, GLUCOSE, BUN, Medica l Branch CREATININE, CA) CBC WITH DIFF 2021-05-08 00:49:00 Beto [facility] COVID-19 (ID NOW RAPID 2021-05-08 00:42:00 Beto [facility] TESTING) Medical Branch LAB ONLY COVID 2021-05-08 00:42:00 Beto [facility] INTERPRETATION [facility] NOTICE OF PRIVACY 2020-09-27 01:47:31 Doctor Unassigned, [facility] PRACTICES [place] [facility] [place] CONSENT/REFUSAL FOR 2020-09-27 01:47:01 Doctor Unassigned, [facility] DIAGNOSIS AND TREATMENT [place] [facility] [place] BASIC METABOLIC PANEL (NA, 2020-08-23 10:03:00 Nataly [facility] K, CL, CO2, GLUCOSE, BUN, Medica l Branch CREATININE, CA) CBC WITHOUT DIFF 2020-08-23 10:03:00 Judith Ingram [facility] COVID-19 (ID NOW RAPID 2020-08-23 00:23:00 Funmilayo [facility] TESTING) Medical Branch HB ECG ROUTINE & RHYTHM 2020-08-22 22:19:37 Funmilayo Pinzon [facility] STRIP Medical Branch HEPATIC FUNCTION PANEL 2020-08-22 22:08:00 Funmilayo [facility] ([id number]) (ALB,T.PRO,BILI Medical Branch T,BU/BC,ALT,AST,ALK PHOS) BASIC METABOLIC PANEL (NA, 2020-08-22 22:08:00 Nallely Pinzon [facility] K, CL, CO2, GLUCOSE, BUN, Medica l Branch CREATININE, CA) CBC WITH DIFF 2020-08-22 22:08:00 Funmilayo Pinzon [facility] CT SOFT TISSUE NECK W 2020-07-10 00:21:10 Juan M Aguillon [facility] URINALYSIS 2020-07-09 23:07:00 Juan M Aguillon [facility] BASIC METABOLIC PANEL (NA, 2020-07-09 22:51:00 Kirk Aguillon [facility] K, CL, CO2, GLUCOSE, BUN, Medica l Branch CREATININE, CA) CBC WITH DIFF 2020-07-09 22:51:00 Juan M Aguillon [facility] RAPID STREP SCREEN FOR 2020-07-09 22:51:00 Juan M Aguillon [facility] GROUP A Medical Branch COVID-19 (ID NOW RAPID 2020-07-09 22:51:00 Juan M Aguillon [facility] TESTING) Medical Branch CT ABDOMEN PELVIS W 2020-06-05 13:02:55 Travis Valdez [facility] URINALYSIS 2020-06-05 13:02:00 More Goetz [facility] EKG-12 LEAD 2020-06-05 11:57:46 More Goetz [facility] LIPASE 2020-06-05 11:57:00 More Goetz [facility] TROPONIN I 2020-06-05 11:57:00 More Goetz [facility] HEPATIC FUNCTION PANEL 2020-06-05 11:57:00 More Goetz [facility] ([id number]) (ALB,T.PRO,BILI Medical Branch T,BU/BC,ALT,AST,ALK PHOS) BASIC METABOLIC PANEL (NA, 2020-06-05 11:57:00 More Goetz [facility] K, CL, CO2, GLUCOSE, BUN, Medica l Branch CREATININE, CA) CBC WITH DIFF 2020-06-05 11:57:00 More Goetz [facility] LACTIC ACID WHOLE BLOOD 2020-06-05 11:57:00 More Goetz U [facility] PHOSPHORUS 2020-05-31 07:54:00 Judy Gomezmi [facility] MAGNESIUM 2020-05-31 07:54:00 Patricia Katia [facility] BASIC METABOLIC PANEL (NA, 2020-05-31 07:54:00 Katia Gomez [facility] K, CL, CO2, GLUCOSE, BUN, Medica l Branch CREATININE, CA) CBC WITH DIFF 2020-05-31 07:54:00 Katia Gomez [facility] IR CHANGE OF ABSCESS DRAIN 2020-05-30 19:33:43 Ashwin Marshall [facility] PHOSPHORUS 2020-05-30 08:19:00 Lambreton Gonzales, [facility] MAGNESIUM 2020-05-30 08:19:00 Lambreton Gonzales, [facility] BASIC METABOLIC PANEL (NA, 2020-05-30 08:19:00 Lambreton Carlos a, [facility] K, CL, CO2, GLUCOSE, BUN, [facility] CREATININE, CA) PHOSPHORUS 2020-05-29 06:43:00 Lambreton Gonzales, [facility] MAGNESIUM 2020-05-29 06:43:00 Lambreton Gonzales, [facility] BASIC METABOLIC PANEL (NA, 2020-05-29 06:43:00 Lambreton Carlos a, [facility] K, CL, CO2, GLUCOSE, BUN, [facility] CREATININE, CA) PHOSPHORUS 2020-05-28 09:08:00 Lambreton Gonzales, [facility] MAGNESIUM 2020-05-28 09:08:00 Lambreton Gonzales, [facility] BASIC METABOLIC PANEL (NA, 2020-05-28 09:08:00 Lambreton Carlos a, [facility] K, CL, CO2, GLUCOSE, BUN, [facility] CREATININE, CA) PHOSPHORUS 2020-05-27 09:33:00 Lambreton Gonzales, [facility] MAGNESIUM 2020-05-27 09:33:00 Lambreton Gonzales, [facility] BASIC METABOLIC PANEL (NA, 2020-05-27 09:33:00 Lambreton Carlos a, [employer] [place] K, CL, CO2, GLUCOSE, BUN, [facility] CREATININE, CA) PHOSPHORUS 2020-05-26 09:27:00 Lambreton Gonzales, [facility] MAGNESIUM 2020-05-26 09:27:00 Lambreton Gonzales, [facility] BASIC METABOLIC PANEL (NA, 2020-05-26 09:27:00 Lambangeloon Carlos a, [facility] K, CL, CO2, GLUCOSE, BUN, [facility] CREATININE, CA) PHOSPHORUS 2020-05-25 21:42:00 Lambreton Gonzales, [facility] MAGNESIUM 2020-05-25 21:42:00 [facility] BAS[facility]OLIC PANEL (NA, 2020-05-25 21:42:00 Lambangeloon Carlos a, [facility] K, CL, CO2, GLUCOSE, BUN, [facility] CREATININE, CA) CBC WITH DIFF 2020-05-25 21:42:00 Lambreton Gonzales, [facility] XR KUB 2020-05-25 20:39:54 [facility] 2020-05-25 08:48:00 Lambreton Gonzales, [facility] MAGNESIUM 2020-05-25 08:48:00 Lambreton Gonzales, [facility] BASIC METABOLIC PANEL (NA, 2020-05-25 08:48:00 Lambreton Carlos a, [facility] K, CL, CO2, GLUCOSE, BUN, [facility] CREATININE, CA) PHOSPHORUS 2020-05-24 20:41:00 Lambreton Gonzales, [facility] MAGNESIUM 2020-05-24 20:41:00 Lambreton Gonzales, [facility] BASIC METABOLIC PANEL (NA, 2020-05-24 20:41:00 Lambreton Carlos a, [facility] K, CL, CO2, GLUCOSE, BUN, [facility] CREATININE, CA) IR CHANGE OF ABSCESS DRAIN 2020-05-24 17:57:11 Vance Stafford U [facility] IR ASPIRATION ABSCESS 2020-05-24 17:24:40 Randa Counts include 234 beds at the [facility] BULLA OR CYST BY NEEDLE Medical [place] ASPIRATE OR ABSCESS 2020-05-24 17:23:00 Nixon Prince [facility] CULTURE(AEROBIC/ANAEROBIC) Medic al Branch CBC WITH DIFF 2020-05-24 11:08:00 Sumeet [facility] Anahi [facility] CT ABDOMEN PELVIS W 2020-05-23 15:02:24 [facility] CONTRAST [facility] BASIC METABOLIC PANEL (NA, 2020-05-23 09:45:00 [facility] K, CL, CO2, GLUCOSE, BUN, [facility] Medica l Branch CREATININE, CA) COVID-19 (PCR MOLECULAR 2020-05-23 06:53:00 Mayela [facility] TESTING) [facility] URINALYSIS 2020-05-22 21:41:00 Colette Lageri [facility] LIPASE 2020-05-22 21:26:00 [facility] 2020-05-22 21:26:00 Alex Lopez [facility] ([id number]) (ALB,T.PRO,BILI [facility] T,BU/BC,ALT,AST,ALK PHOS) BASIC METABOLIC PANEL (NA, 2020-05-22 21:26:00 Alex Lopez [facility] K, CL, CO2, GLUCOSE, BUN, Medica l Branch CREATININE, CA) CBC WITH DIFF 2020-05-22 21:26:00 Colette [facility] PROTHROMBIN TIME / INR 2020-05-22 21:26:00 [facility] ACTIVATED PARTIAL THRMPLAS 2020-05-22 21:26:00 Alex Lopez [facility] SELENA [facility] XR CHEST 1 VW 2020-05-22 20:55:00 Alex Lopez [facility] HOSPITAL ADMISSION 2020-05-22 05:01:00 Doctor Unassigned, [facility] [place] [facility] URINALYSIS 2020-05-20 09:58:00 Jonah Rodriguez [facility] Medical Branch COVID-19 (ID NOW RAPID 2020-05-20 09:48:00 Jonah [facility] TESTING[facility] Medical Branch CT ABDOMEN PELVIS W 2020-05-20 04:07:43 Jonah Rodriguez [facility] CONTRAST Medical Branch LIPASE 2020-05-20 03:09:00 Jonah Rodriguez [facility] MAGNESIUM 2020-05-20 03:09:00 Michael [facility] TROPONIN I 2020-05-20 03:09:00 Michael [facility] COMP. METABOLIC PANEL 2020-05-20 03:09:00 Jonah Rodriguez [facility] ([id number]) Medical Branch CBC WITH DIFF 2020-05-20 03:09:00 Jonah Rodriguez [facility] PHOSPHORUS 2020-05-10 09:13:00 Randa [facility] MAGNESIUM 2020-05-10 09:13:[address] [facility] BASIC METABOLIC PANEL (NA, 2020-05-10 09:13:00 Randa [facility] K, CL, CO2, GLUCOSE, BUN, Medica l Branch CREATININE, CA) CBC WITH DIFF 2020-05-10 09:13:00 Randa [facility] PHOSPHORUS 2020-05-09 10:28:[address] [facility] MAGNESIUM 2020-05-09 10:28:[address] [facility] BASIC METABOLIC PANEL (NA, 2020-05-09 10:28:00 Randa [facility] K, CL, CO2, GLUCOSE, BUN, Medica l Branch CREATININE, CA) CBC WITH DIFF 2020-05-09 10:28:[address] [facility] PHOS[facility]US 2020-05-08 11:18:00 [facility] [place] [facility] 2020-05-08 11:18:[address] [facility] BASIC METABOLIC PANEL (NA, 2020-05-08 11:18:00 [facility] K, CL, CO2, GLUCOSE, BUN, Medica l Branch CREATININE, CA) CBC WITH DIFF 2020-05-08 11:18:00 [facility] PHOSPHORUS 2020-05-07 09:21:[address] [facility] MAGNESIUM 2020-05-07 09:21:00 [facility] BASIC METABOLIC PANEL (NA, 2020-05-07 09:21:00 [facility] K, CL, CO2, GLUCOSE, BUN, Medica l Branch CREATININE, CA) CBC WITH DIFF 2020-05-07 09:21:00 [facility] PHOSPHORUS 2020-05-06 09:57:00 [facility] MAGNESIUM 2020-05-06 09:57:00 [facility] BASIC METABOLIC PANEL (NA, 2020-05-06 09:57:00 [facility] K, CL, CO2, GLUCOSE, BUN, Medica l Branch CREATININE, CA) CBC WITH DIFF 2020-05-06 09:56:00 [facility] IR DRAINAGE BY CATHETER 2020-05-05 19:55:00 [facility] PERITONEAL OR Medical Branch RETROPERITONEAL BODY FLUID 2020-05-05 19:06:00 Nixon Prince [facility] CULTURE(AEROBIC/ANAEROBIC) [facility] FUNGUS (ROUTINE) CULTURE 2020-05-05 19:06:00 Nixon Prince [facility] BODY FLUID 2020-05-05 19:00:00 Ivan Guthrie [facility] CULTURE(AEROBIC/ANAEROBIC) [facility] FUNGUS (ROUTINE) CULTURE 2020-05-05 19:00:00 Ivan Guthrie [facility] PREPARE PACKED RBC 2020-05-05 15:59:33 Hakeem Jo [facility] HB ABO GROUPING 2020-05-05 10:55:00 Hakeem Jo [facility] PREALBUMIN, SERUM 2020-05-05 08:56:00 [facility] 2020-05-05 08:56:00 Randa [facility] MAGNESIUM 2020-05-05 08:56:00 Randa [facility] BASIC METABOLIC PANEL (NA, 2020-05-05 08:56:00 Randa Julio [facility] K, CL, CO2, GLUCOSE, BUN, Medica l Branch CREATININE, CA) CBC WITH DIFF 2020-05-05 08:56:00 Randa [facility] URINALYSIS 2020-05-05 05:11:00 Lora Hall [facility] CT ABDOMEN PELVIS W 2020-05-05 04:18:56 Lora Hall [facility] LIPASE 2020-05-05 02:35:00 Lora Hall [facility] COMP. METABOLIC PANEL 2020-05-05 02:35:00 Lora Hall [facility] ([id number]) [facility] CBC WITH DIFF 2020-05-05 02:35:00 Lora Hall [facility] COVID-19 (ID NOW RAPID 2020-05-05 02:27:00 Lora Hall [facility] TESTING) Medical Branch HOSPITAL ADMISSION 2020-05-04 05:01:00 Doctor Unassigned, [facility] [place] [facility] CBC WITH DIFF 2020-05-01 11:32:00 Randa [facility] PHOSPHORUS 2020-05-01 11:32:00 Randa [facility] MAGNESIUM 2020-05-01 11:32:[address] [facility] BASIC METABOLIC PANEL (NA, 2020-05-01 11:32:00 aRnda [facility] K, CL, CO2, GLUCOSE, BUN, Medica l Branch CREATININE, CA) CBC WITH DIFF 2020-04-29 11:31:00 Randa [facility] PHOSPHORUS 2020-04-29 11:31:00 Randa [facility] MAGNESIUM 2020-04-29 11:31:00 Randa [facility] BASIC METABOLIC PANEL (NA, 2020-04-29 11:31:00 [facility] K, CL, CO2, GLUCOSE, BUN, Medica l Branch CREATININE, CA) CBC WITH DIFF 2020-04-28 08:51:00 Becky, [facility] MAGNESIUM 2020-04-28 08:51:00 Becky, [facility] BASIC METABOLIC PANEL (NA, 2020-04-28 08:51:00 Becky, [facility] K, CL, CO2, GLUCOSE, BUN, Cathryn Medica l Branch CREATININE, CA) CBC WITH DIFF 2020-04-27 09:34:00 Becky, [facility] MAGNESIUM 2020-04-27 09:34:00 Becky, [facility] BASIC METABOLIC PANEL (NA, 2020-04-27 09:34:00 Becky, [facility] K, CL, CO2, GLUCOSE, BUN, Cathryn [facility]ica [facility] CREATININE, CA) CBC WITH DIFF 2020-04-26 09:27:00 Becky, [facility] MAGNESIUM 2020-04-26 09:27:00 Becky, [facility] BASIC METABOLIC PANEL (NA, 2020-04-26 09:27:00 Becky, [facility] K, CL, CO2, GLUCOSE, BUN, Cathryn [facility] CREATININE, CA) CBC WITH DIFF 2020-04-25 08:59:00 Becky, [facility] MAGNESIUM 2020-04-25 08:59:00 Becky, [facility] BASIC METABOLIC PANEL (NA, 2020-04-25 08:59:00 Becky, [facility] K, CL, CO2, GLUCOSE, BUN, [facility] CREATININE, CA) CBC WITH DIFF 2020-04-24 09:44:00 Becky, [facility] MAGNESIUM 2020-04-24 09:44:00 Becky, [facility] BASIC METABOLIC PANEL (NA, 2020-04-24 09:44:00 Becky, [facility] K, CL, CO2, GLUCOSE, BUN, Cath[facility] CREATININE, CA) CT ABDOMEN PELVIS W 2020-04-23 23:24:02 Grant Cheema, [facility] CONTRAST [facility] CT THORAX W CONTRAST 2020-04-23 23:24:02 Grant Cheema, [facility] COVID-19 (ID NOW RAPID 2020-04-23 15:06:00 Grant Cheema, [facility] TESTING) [facility] PREALBUMIN, SERUM 2020-04-23 13:42:00 Grant Cheema, [facility] sity [facility] POTASSIUM SERUM 2020-04-23 13:42:00 Becky [facility] CBC WITH DIFF 2020-04-23 10:17:00 Becky, [facility] MAGNESIUM 2020-04-23 10:17:00 Becky [facility] BASIC METABOLIC PANEL (NA, 2020-04-23 10:17:00 Becky [facility] K, CL, CO2, GLUCOSE, BUN, Cath[facility] CREATININE, CA) XR CHEST 1 VW 2020-04-23 10:03:00 Becky [facility] MAGNESIUM 2020-04-22 10:37:00 Becky, [facility] BASIC METABOLIC PANEL (NA, 2020-04-22 10:37:00 Becky [facility] K, CL, CO2, GLUCOSE, BUN, Cath[facility]ica [facility] [place] CREATININE, CA) CBC WITH DIFF 2020-04-22 10:30:00 Becky [facility] XR CHEST 1 VW 2020-04-22 07:30:00 Becky, [facility] CBC WITH DIFF 2020-04-21 13:09:00 Becky, [facility] MAGNESIUM 2020-04-21 13:09:00 Becky, [facility] BASIC METABOLIC PANEL (NA, 2020-04-21 13:09:00 Becky, [facility] K, CL, CO2, GLUCOSE, BUN, Cath[facility] CREATININE, CA) XR CHEST 1 VW 2020-04-21 06:41:[address] [facility] XR CHEST 1 VW 2020-04-20 11:03:[address] [facility] CBC WITH DIFF 2020-04-20 09:45:00 Katrina [facility] PREALBUMIN, SERUM 2020-04-20 09:45:00 Grant Cheema [facility] PHOSPHORUS 2020-04-20 09:45:[address] [facility] MAGNESIUM 2020-04-20 09:45:00 Katrina [facility] BASIC METABOLIC PANEL (NA, 2020-04-20 09:45:00 [facility], CL, CO2, GLUCOSE, BUN, Medica l Branch CREATININE, CA) XR CHEST 1 VW 2020-04-19 10:13:45 [facility] CBC WITH DIFF 2020-04-19 10:10:00 Katrina [facility] PHOSPHORUS 2020-04-19 10:10:[address] [facility] MAGNESIUM 2020-04-19 10:10:00 Katrina [facility] BASIC METABOLIC PANEL (NA, 2020-04-19 10:10:00 [facility] K, CL, CO2, GLUCOSE, BUN, Medica l Branch CREATININE, CA) XR CHEST 1 VW 2020-04-18 11:01:00 [facility] CBC WITH DIFF 2020-04-18 10:19:00 Katrina [facility] PHOSPHORUS 2020-04-18 10:19:[address] [facility] MAGNESIUM 2020-04-18 10:19:00 Katrina [facility] BASIC METABOLIC PANEL (NA, 2020-04-18 10:19:00 Yosvany Herndon [facility] K, CL, CO2, GLUCOSE, BUN, Medica l Branch CREATININE, CA) XR CHEST 1 2020-04-17 18:58:00 Rosaura Pena [facility] CBC WITH DIFF 2020-04-17 09:33:00 Katrina [facility] PHOSPHORUS 2020-04-17 09:33:[address] [facility] MAGNESIUM 2020-04-17 09:33:00 Katrina [facility] BASIC METABOLIC PANEL (NA, 2020-04-17 09:33:00 Yosvany Herndon [facility] K, CL, CO2, GLUCOSE, BUN, Medica l Branch CREATININE, CA) XR CHEST 1 2020-04-17 08:52:[address] [facility] XR CHEST 1 2020-04-16 23:45:00 Rivera [facility] BODY FLUID 2020-04-16 21:50:00 Rivera [facility] CULTURE(AEROBIC/ANAEROBIC) [facility] FUNGUS (ROUTINE) CULTURE 2020-04-16 21:50:00 Rivera [facility] CYTO PLEURAL FLUID 2020-04-16 21:50:00 Rivera [facility] LDH TOTAL BODY FLUID 2020-04-16 21:50:00 Rivera [facility] AMYLASE BODY FLUID 2020-04-16 21:50:00 Rivera [facility] GLUCOSE BODY FLUID 2020-04-16 21:50:00 Rivera [facility] PH, BODY FLUID 2020-04-16 21:50:00 Rivera [facility] T.PROTEIN BODY FLUID 2020-04-16 21:50:00 Rivera [facility] BODY FLUID DIRECT COUNT 2020-04-16 21:50:00 Rivera [facility] IR PLEURAL DRAINAGE WITH 2020-04-16 21:36:25 Rosaura Pena [facility] TUBE WITH IMAGING [facility] PROTHROMBIN TIME / INR 2020-04-16 16:07:00 BeckyRosaura ramirez [facility] CBC WITH DIFF 2020-04-16 10:07:00 Katrina [facility] PHOSPHORUS 2020-04-16 10:07:[address] [facility] MAGNESIUM 2020-04-16 10:07:00 Katrina [facility] BASIC METABOLIC PANEL (NA, 2020-04-16 10:07:00 Yosvany Herndon [facility] K, CL, CO2, GLUCOSE, BUN, Medica l Branch CREATININE, CA) CT ABDOMEN PELVIS W 2020-04-16 07:02:21 Grant Cheema [facility] CBC WITH DIFF 2020-04-15 10:02:00 Katrina [facility] PHOSPHORUS 2020-04-15 10:02:[address] [facility] MAGNESIUM 2020-04-15 10:02:00 Katrina [facility] BASIC METABOLIC PANEL (NA, 2020-04-15 10:02:00 Yosvany Herndon [facility] K, CL, CO2, GLUCOSE, BUN, Medica l Branch CREATININE, CA) CBC WITH DIFF 2020-04-14 10:26:00 Katrina [facility] PHOSPHORUS 2020-04-14 10:26:[address] [facility] MAGNESIUM 2020-04-14 10:26:00 Katrina [facility] BASIC METABOLIC PANEL (NA, 2020-04-14 10:26:00 Yosvany Herndon [facility] K, CL, CO2, GLUCOSE, BUN, Medica l Branch CREATININE, CA) BASIC METABOLIC PANEL (NA, 2020-04-13 23:53:00 Grant Santana i [facility] K, CL, CO2, GLUCOSE, BUN, Danny Medica l Branch CREATININE, CA) CBC WITHOUT DIFF 2020-04-13 23:53:00 Grant Cheema [facility] IR DRAINAGE BY CATHETER 2020-04-13 20:35:08 Grant Cheema [facility] PERITONEAL OR [facility] RETROPERITONEAL BODY FLUID 2020-04-13 20:05:00 Neris Grier [facility] CULTURE(AEROBIC/ANAEROBIC) Medic al Branch LDH TOTAL BODY FLUID 2020-04-13 20:05:00 Grant Cheema, [facility] GLUCOSE BODY FLUID 2020-04-13 20:05:00 [facility] T.PROTEIN BODY FLUID 2020-04-13 20:05:00 Grant Cheema, [facility] BODY FLUID DIRECT COUNT 2020-04-13 20:05:00 [facility]FF 2020-04-13 10:44:00 Katrina [facility] PHOSPHORUS 2020-04-13 10:44:[address] [facility] MAGNESIUM 2020-04-13 10:44:00 Katrina [facility] BASIC METABOLIC PANEL (NA, 2020-04-13 10:44:00 Yosvany Herndon [facility] K, CL, CO2, GLUCOSE, BUN, [facility] CREATININE, CA) CT ABDOMEN PELVIS W 2020-04-12 21:23:19 Grant Cheema [facility] URINALYSIS 2020-04-12 20:43:00 [facility] URINE CULTURE 2020-04-12 20:43:00 Rosaura Pena [facility] BLOOD CULTURE WORKUP 2020-04-12 18:51:00 Rosaura [facility] GRAM NEGATIVE BLOOD 2020-04-12 18:51:00 Rosaura Pena [facility] PATHOGENS DNA [facility] PROBE-ANAEROBIC BLOOD CULTURE SCREEN 2020-04-12 18:51:00 Rosaura [facility] BLOOD CULTURE SCREEN 2020-04-12 18:50:00 Rosaura [facility]ena [facility] CBC WITH DIFF 2020-04-12 08:46:00 Katrina [facility] PHOSPHORUS 2020-04-12 08:46:[address] [facility] MAGNESIUM 2020-04-12 08:46:00 Katrina [facility] BASIC METABOLIC PANEL (NA, 2020-04-12 08:46:00 Yosvany Herndon [facility] K, CL, CO2, GLUCOSE, BUN, Medica l Branch CREATININE, CA) CBC WITH DIFF 2020-04-11 08:54:00 Katrina [facility] PHOSPHORUS 2020-04-11 08:54:[address] [facility] MAGNESIUM 2020-04-11 08:54:00 Katrina [facility] BASIC METABOLIC PANEL (NA, 2020-04-11 08:54:00 [facility], CL, CO2, GLUCOSE, BUN, Medica l Branch CREATININE, CA) CBC WITH DIFF 2020-04-10 09:49:00 Katrina [facility] PHOSPHORUS 2020-04-10 09:49:[address] [facility] MAGNESIUM 2020-04-10 09:49:00 [facility] CHEST 1 VW 2020-04-09 11:27:[address] [facility] CBC WITH DIFF 2020-04-09 09:07:00 Katrina [facility] PHOSPHORUS 2020-04-09 09:07:[address] [facility] MAGNESIUM 2020-04-09 09:07:00 Katrina [facility] HEPATIC FUNCTION PANEL 2020-04-09 09:07:00 Grant Cheema [facility] ([id number]) (ALB,T.PRO,[facility] T,BU/BC,ALT,AST,ALK PHOS) BASIC METABOLIC PANEL (NA, 2020-04-09 09:07:00 [facility] K, CL, CO2, GLUCOSE, BUN, Medica l Branch CREATININE, CA) AC PANEL 20 + LACTIC ACID 2020-04-08 21:11:00 [facility]don [facility] PO[facility] GLUCOSE (AUTOMATED) 2020-04-08 12:27:00 Bia Pedro Uni [facility] AC PANEL 21 + LACTIC ACID 2020-04-08 09:34:00 Bigg Lawton Un iversity [facility] POCT GLUCOSE (AUTOMATED) 2020-04-08 09:33:00 Griffin Pedroa [facility] CBC WITH DIFF 2020-04-08 09:26:00 Katrina [facility] MAGNESIUM 2020-04-08 09:26:00 Katrina [facility] BASIC METABOLIC PANEL (NA, 2020-04-08 09:26:00 [facility] K, CL, CO2, GLUCOSE, BUN, Medica l Branch CREATININE, CA) POCT GLUCOSE (AUTOMATED) 2020-04-08 04:24:00 PhaGriffin morgana Uni versH[facility] POCT GLUCOSE (AUTOMATED) 2020-04-08 00:36:00 Phadmitrik Bia Uni versity [facility] POCT GLUCOSE (AUTOMATED) 2020-04-07 21:24:00 PhaGriffin morgana Uni versity [facility] POCT GLUCOSE (AUTOMATED) 2020-04-07 16:49:00 PhaGriffin morgana Uni [facility] AC PANEL 20 + LACTIC ACID 2020-04-07 14:14:00 Yosvany Herndon i[facility] LACTIC ACID WHOLE BLOOD 2020-04-07 13:53:00 [facility] (AUTOMATED) 2020-04-07 12:50:00 Bia Pedro Uni [facility] AC PANEL 20 + LACTIC ACID 2020-04-07 11:16:00 Yosvany Herndon i[facility] MAGNESIUM 2020-04-07 08:48:00 Katrina [facility] BASIC METABOLIC PANEL (NA, 2020-04-07 08:48:00 [facility] Herndon [facility] K, CL, CO2, GLUCOSE, BUN, Medica l Branch CREATININE, CA) CBC WITH DIFF 2020-04-07 08:48:00 Yosvany Herndon [facility] XR CHEST 1 VW 2020-04-07 08:10:00 Rosaura Pena [facility] POCT GLUCOSE (AUTOMATED) 2020-04-07 04:36:00 Bia Pedro [facility] AC PANEL 21 + LACTIC ACID 2020-04-07 02:05:[address] [facility] [place] [place] MRSA / MSSA SCREEN BY PCR, 2020-04-07 02:05:[address] [facility] BLOOD CULTURE SCREEN 2020-04-07 02:05:00 Grant Cheema [facility] POCT GLUCOSE (AUTOMATED) 2020-04-07 00:37:00 Bia Pedro [facility] HCV ANTIBODY 2020-04-06 23:44:[address] [facility] POCT GLUCOSE (AUTOMATED) 2020-04-06 23:43:00 Bia Pedro [facility] HIV 1/2 AG-AB WITH REFLEX 2020-04-06 23:30:00 Grant Cheema [facility] POCT GLUCOSE (AUTOMATED) 2020-04-06 22:14:00 Bia Pedro [facility] ECHO ROUTINE W/DOPPLER 2020-04-06 20:25:55 Yosvany Herndon [facility] PROTHROMBIN TIME / INR 2020-04-06 19:00:00 Rosaura Pena [facility] ACTIVATED PARTIAL THRMPLAS 2020-04-06 19:00:00 Becky [facility] SELENA [facility] MAGNESIUM 2020-04-06 19:00:00 Becky [facility] BASIC METABOLIC PANEL (NA, 2020-04-06 19:00:00 Becky [facility] K, CL, CO2, GLUCOSE, BUN, [facility] CREATININE, CA) COMP. METABOLIC PANEL 2020-04-06 19:00:00 Yosvany Herndon [facility] ([id number]) [facility] CBC WITH DIFF 2020-04-06 19:00:00 Katrina [facility] AC PANEL 21 + LACTIC ACID 2020-04-06 18:59:00 Simi Dennis [facility] ABG+COOX+NA+K+GLU+CA2+ 2020-04-06 16:06:00 Bia Pedro [facility] INTUBATION 2020-04-06 16:04:59 Ana Syed [facility] XR CHEST 1 VW 2020-04-06 15:43:00 Katrina [facility] SURGICAL PATHOLOGY EXAM 2020-04-06 15:12:00 Zahraa Mccabeshua [facility] CENTRAL LINE 2020-04-06 14:52:37 Cynthia Herring [facility] E [facility] ARTERIAL LINE 2020-04-06 14:51:44 Ana Syed [facility] ASPIRATE OR ABSCESS 2020-04-06 14:50:29 Person, [facility] CULTURE(AEROBIC/ANAEROBIC) Medic or Branch [employer] CULTURE 2020-04-06 14:50:29 Person, [facility] FUNGUS (ROUTINE) CULTURE 2020-04-06 14:50:29 Person, [facility] ABG+COOX+NA+K+GLU+CA2+ 2020-04-06 14:46:00 Bia Pedro [facility] HB ABO GROUPING 2020-04-06 14:39:00 Dana Sampson [facility] EXPLORATORY LAPAROTOMY 2020-04-06 13:51:00 Person [facility] URINE CULTURE 2020-04-06 13:48:[address] [facility] XR KUB 2020-04-06 13:34:[address] [facility] XR CHEST 1 VW 2020-04-06 13:34:[address] [facility] MAGNESIUM 2020-04-06 11:47:00 Becky, [facility] BASIC METABOLIC PANEL (NA, 2020-04-06 11:47:00 Becky [facility] K, CL, CO2, GLUCOSE, BUN, Cathryn [facility]ica [facility] CREATININE, CA) CBC WITH DIFF 2020-04-06 11:47:00 Becky [facility] XR KUB 2020-04-05 21:34:47 Grant Cheema, [facility] XR KUB 2020-04-05 19:41:00 Grantsherry Cheema, [facility] MAGNESIUM 2020-04-05 09:44:00 Becky [facility] BASIC METABOLIC PANEL (NA, 2020-04-05 09:44:00 Becky [facility] K, CL, CO2, GLUCOSE, BUN, Cathryn [facility]ica [facility] CREATININE, CA) CBC WITH DIFF 2020-04-05 09:44:00 Becky [facility] MAGNESIUM 2020-04-04 10:09:00 Becky [facility] BASIC METABOLIC PANEL (NA, 2020-04-04 10:09:00 Becky [facility] K, CL, CO2, GLUCOSE, BUN, Cathryn [facility] CREATININE, CA) CBC WITH DIFF 2020-04-04 10:09:00 Becky [facility] SURGICAL PATHOLOGY EXAM 2020-04-03 20:13:[address] [facility] LAPAROSCOPIC COLECTOMY 2020-04-03 15:35:00 Mayela [facility] COLONOSCOPY 2020-04-03 15:35:00 Mayela [facility] COLECTOMY 2020-04-03 15:35:00 Mayela [facility] MAGNESIUM 2020-04-03 09:20:00 Becky [facility] BASIC METABOLIC PANEL (NA, 2020-04-03 09:20:00 Becky [facility] K, CL, CO2, GLUCOSE, BUN, [facility] CREATININE, CA) CBC WITH DIFF 2020-04-03 09:20:00 [facility] HB ABO GROUPING 2020-04-02 22:45:00 Hugo Alfaro [facility] MAGNESIUM 2020-04-02 10:22:00 Becky [facility] BASIC METABOLIC PANEL (NA, 2020-04-02 10:22:00 Becky [facility] K, CL, CO2, GLUCOSE, BUN, [facility] CREATININE, CA) CBC WITH DIFF 2020-04-02 10:22:00 Becky [facility] COVID-19 (ID NOW RAPID 2020-04-01 23:02:00 Becky [facility] TESTING) [facility] URINALYSIS 2020-03-31 11:25:00 Alex Lopez [facility] CT ABDOMEN PELVIS W 2020-03-31 00:17:06 Alex Lopez [facility] CONTRAST [facility] XR CHEST 1 VW 2020-03-30 22:43:49 Colette Lageri [facility] EKG-12 LEAD 2020-03-30 22:14:24 Doctor Unassigned, [facility] [place] [facility] PROTHROMBIN TIME / INR 2020-03-30 22:05:00 Alex [facility] ACTIVATED PARTIAL THRMPLAS 2020-03-30 22:05:00 [facility] SELENA [facility] N-TERMINAL PRO-BNP 2020-03-30 22:05:00 Alex Lopez [facility] LIPASE 2020-03-30 22:05:00 Alex Lopez [facility] TROPONIN I 2020-03-30 22:05:00 Colette Lageri [facility] HEPATIC FUNCTION PANEL 2020-03-30 22:05:00 Alex Lopez [facility] ([id number]) (ALB,T.PRO,BILI Medical Branch T,BU/BC,ALT,AST,ALK PHOS) BASIC METABOLIC PANEL (NA, 2020-03-30 22:05:00 Alex Lopez [facility] K, CL, CO2, GLUCOSE, BUN, Medica l Branch CREATININE, CA) CBC WITH DIFF 2020-03-30 22:05:00 Colette [facility] EKG-12 LEAD 2020-03-30 22:01:44 Colette [facility] HOSPITAL ADMISSION 2020-03-30 05:01:00 Doctor Unassigned, [facility] [place] [facility] MAGNESIUM 2020-03-26 09:57:00 Simin [facility] BASIC METABOLIC PANEL (NA, 2020-03-26 09:57:00 Simin Chan [facility] K, CL, CO2, GLUCOSE, BUN, [facility] CREATININE, CA) CBC WITH DIFF 2020-03-26 09:57:00 Simin [facility] LACTIC ACID WHOLE BLOOD 2020-03-26 04:09:00 Sarah Duval [facility] COVID-19 (ID NOW RAPID 2020-03-26 02:01:00 Bernardo Donnelly [facility] TESTING) [facility] CT ABDOMEN PELVIS W 2020-03-26 01:17:18 Bernardo Donnelly [facility] CONTRAST [facility] PHOSPHORUS 2020-03-26 00:39:00 [facility] [facility] MAGNESIUM 2020-03-26 00:39:00 Simin [facility] HEPATIC FUNCTION PANEL 2020-03-26 00:39:00 Bernardo Donnelly [facility] ([id number]) ([facility],BU/BC,ALT,AST,ALK PHOS) BASIC METABOLIC PANEL (NA, 2020-03-26 00:39:00 Bernardo Donnelly [facility] K, CL, CO2, GLUCOSE, BUN, [facility] CREATININE, CA) CBC WITH DIFF 2020-03-26 00:39:00 Bernardo Donnelly [facility] EXTRA TUBE LT. BLUE 2020-03-26 00:39:00 Bernardo Donnelly [facility] HOSPITAL ADMISSION 2020-03-25 05:01:00 Doctor Unassigned, [facility] [place] [facility] PROTHROMBIN TIME / INR 2020-03-03 04:27:00 Ori Persaud [facility] ACTIVATED PARTIAL THRMPLAS 2020-03-03 04:27:00 Zahraa Persaud se [facility] XR ABDOMEN ACUTE SERIES 2020-03-03 02:15:00 Shy [facility] PHOSPHORUS 2020-03-03 01:22:00 Ori Persaud [facility] MAGNESIUM 2020-03-03 01:22:00 Ori Persaud [facility] HEPATIC FUNCTION PANEL 2020-03-03 01:22:00 Shy [facility] ([id number]) (ALB,T.PRO,BILI [facility] T,BU/BC,ALT,AST,ALK PHOS) BASIC METABOLIC PANEL (NA, 2020-03-03 01:22:00 Sabi Begum [facility] K, CL, CO2, GLUCOSE, BUN, Medica l Branch CREATININE, CA) CBC WITH DIFFERENTIAL 2020-03-03 01:22:[address] [facility] URINALYSIS 2020-03-03 01:22:[address] [facility] LACTIC ACID WHOLE BLOOD 2020-03-03 01:22:00 Shy [facility] COVID-19 (ID NOW RAPID 2020-03-03 01:22:00 Shy [facility] TESTING) [facility] GALV/CLC ONLY - URINE DRUG 2020-02-27 20:02:00 [facility] (IMMUNOASSAY) - [facility] COMPREHENSIVE DRUG SCREEN FREE T4 2020-02-27 17:48:00 [facility] THYROID STIMULATING 2020-02-27 17:48:00 [facility] HORMONE [facility] FREE T3 2020-02-27 17:48:[address] [facility] CT ABDOMEN PELVIS W 2020-02-26 18:27:28 Alondra Fay [facility] CONTRAST [facility] COVID-19 (ID NOW RAPID 2020-02-26 06:41:00 Begum, [facility] TESTING) Medical Branch XR ABDOMEN ACUTE SERIES 2020-02-26 04:48:30 Begum, [facility] LIPASE 2020-02-26 03:35:00 Begum, [facility] HEPATIC FUNCTION PANEL 2020-02-26 03:35:00 Begum, [facility] ([id number]) (ALB,T.PRO,BILI [facility] T,BU/BC,ALT,AST,ALK PHOS) BASIC METABOLIC PANEL (NA, 2020-02-26 03:35:00 Begum [facility] K, CL, CO2, GLUCOSE, BUN, Medica l Branch CREATININE, CA) CBC WITH DIFFERENTIAL 2020-02-26 03:35:00 Begum, [facility] LACTIC ACID WHOLE BLOOD 2020-02-26 03:35:00 Begum, [facility] EXTRA TUBE LT. BLUE 2020-02-26 03:35:00 Begum, [facility] MAGNESIUM 2020-02-03 16:38:00 [facility]in [facility] BASIC METABOLIC PANEL (NA, 2020-02-03 16:38:00 [facility], CL, CO2, GLUCOSE, BUN, Medica l Branch CREATININE, CA) XR KUB 2020-01-31 16:59:00 Helene Griffin [facility] BASIC METABOLIC PANEL (NA, 2020-01-31 06:15:00 Kirill Henson [facility] K, CL, CO2, GLUCOSE, BUN, Medica l Branch CREATININE, CA) CBC WITH DIFFERENTIAL 2020-01-31 06:15:[address] [facility] BASIC METABOLIC PANEL (NA, 2020-01-29 10:06:00 Nataly [facility] K, CL, CO2, GLUCOSE, BUN, Medica l Branch CREATININE, CA) CBC WITH DIFFERENTIAL 2020-01-29 10:06:00 Judith Ingram [facility] COVID-19 (PCR MOLECULAR 2020-01-29 03:56:00 Arleth Hill [facility] TESTING) Medical Branch LACTIC ACID WHOLE BLOOD 2020-01-29 03:55:00 Bernardo Donnelly [facility] EXTRA TUBE LAV 2020-01-29 03:55:00 [facility]UE 2020-01-29 03:55:00 [facility] GREEN 2020-01-29 03:55:00 [facility] 2020-01-29 01:35:00 Silvia Jurado I [facility] COVID-19 (ID NOW RAPID 2020-01-29 01:32:00 Bernardo Donnelly [facility] TESTING) Medical Branch CT ABDOMEN PELVIS W 2020-01-28 23:53:23 Silvia Jurado I [facility] CONTRAST [facility] LIPASE 2020-01-28 23:19:00 Silvia Jurado [facility] HEPATIC FUNCTION PANEL 2020-01-28 23:19:00 JuradoSilvia [facility] ([id number]) (ALB,T.PRO,BILI [facility] T,BU/BC,ALT,AST,ALK PHOS) BASIC METABOLIC PANEL (NA, 2020-01-28 23:19:00 Sondra Jurado [facility] K, CL, CO2, GLUCOSE, BUN, Medica l Branch CREATININE, CA) CBC WITH DIFFERENTIAL 2020-01-28 23:19:00 Silvia Jurado [facility] [place] [place] [facility] 2020-01-28 05:01:00 Doctor Unassigned, [facility] [place] [facility] Branch BASIC METABOLIC PANEL (NA, 2020-01-26 18:06:00 [facility], CL, CO2, GLUCOSE, BUN, Medica l Branch CREATININE, CA) MAGNESIUM 2020-01-26 08:17:00 Liz [facility] XR KUB 2020-01-26 06:00:00 Helene Griffin [facility] PHOSPHORUS 2020-01-25 09:43:00 Liz [facility] COVID-19 (ID NOW RAPID 2020-01-25 04:31:00 Shy [facility] TESTING) Medical Branch LACTIC ACID WHOLE BLOOD 2020-01-25 04:27:[address] [facility] [address] ABDOMEN PELVIS W 2020-01-25 02:15:22 Shy [facility] CONTRAST [facility] URINALYSIS 2020-01-25 01:05:[address] [facility] LIPASE 2020-01-25 00:42:00 Begum, [facility] HEPATIC FUNCTION PANEL 2020-01-25 00:42:00 Shy [facility] ([id number]) (ALB,T.PRO,BILI [facility] T,BU/BC,ALT,AST,ALK PHOS) BASIC METABOLIC PANEL (NA, 2020-01-25 00:42:00 Shy [facility] K, CL, CO2, GLUCOSE, BUN, Medica l Branch CREATININE, CA) CBC WITH DIFFERENTIAL 2020-01-25 00:42:[address] [facility] [id number] 2020-01-09 00:00:00 DAR.01 [facility] EXTERNAL PROVIDER RECORDS 2019-12-28 05:01:00 Doctor Unassigned, [facility] [place] [facility] Plan of Care Planned Activity Planned Date Details Comments Source Future Scheduled 2029-03-23 Screening for malignant [facility] 00:00:00 neoplasm of colon Medical Ce nter (procedure) [code = 234574476] Future Scheduled 2029-03-23 Screening for malignant [facility] 00:00:00 neoplasm of colon Medical Ce [facility]ter (procedure) [code = 133550285] Future Scheduled 2029-03-23 Screening for malignant [facility] Test 00:00:00 neoplasm of colon Medical Ce nter (procedure) [code = 837772273] Future Scheduled 2029-03-23 Screening for malignant [facility] Test 00:00:00 neoplasm of colon Medical Ce nter (procedure) [code = 274227206] Future Scheduled 2029-03-23 Screening for malignant [facility] Test 00:00:00 neoplasm of colon Medical Ce nter (procedure) [code = 196145923] Future Scheduled 2029-03-23 Screening for malignant [facility] Test 00:00:00 neoplasm of colon Medical Ce nter (procedure) [code = 363579128] Future Scheduled 2029-03-23 Screening for malignant [facility] Test 00:00:00 neoplasm of colon Medical Ce nter (procedure) [code = 785265898] Future Scheduled 2029-03-23 Screening for malignant [facility] Test 00:00:00 neoplasm of colon Medical Ce nter (procedure) [code = 255217579] Future Scheduled 2029-03-23 Screening for malignant [facility] Test 00:00:00 neoplasm of colon Medical Ce nter (procedure) [code = 182872753] Future Scheduled 2029-03-23 Screening for malignant [facility] 00:00:00 neoplasm of colon Medical Ce nter (procedure) [code = 559444234] Future Scheduled 2029-03-23 Screening for malignant [facility] 00:00:00 neoplasm of colon Medical Ce nter (procedure) [code = 825140705] Future Scheduled 2029-03-23 Screening for malignant [facility] 00:00:00 neoplasm of colon Medical Ce nter (procedure) [code = 370247189] Future Scheduled 2029-03-23 Screening for malignant [facility] 00:00:00 neoplasm of colon Medical Ce nter (procedure) [code = 901114124] Future Scheduled 2029-03-23 Screening for malignant [facility] 00:00:00 neoplasm of colon Medical Ce nter (procedure) [code = 658867157] Future Scheduled 2029-03-23 Screening for malignant [facility] 00:00:00 neoplasm of colon Medical Ce nter (procedure) [code = 331837911] Future Scheduled 2022-05-24 IMM Influenza Seasonal H [...] 00:00:00 neoplasm of colon (procedure) [code = 201844766] Future Scheduled 2020-02-14 SHINGLES VACCINES (1 of [...] 00:00:00 neoplasm of colon (procedure) [code = 313919446] Future Scheduled 2020-02-14 Screening for malignant [facility] 00:00:00 neoplasm of colon (procedure) [code = 576107144] Future Scheduled 2020-02-14 Screening for malignant [facility] Test 00:00:00 neoplasm of colon (procedure) [code = 086991801] Future Scheduled 2020-02-14 Screening for malignant [facility] Test 00:00:00 neoplasm of colon (procedure) [code = 230193322] Future Scheduled 2005 Lipid panel (procedure) [facility] 00:00:00 [code = 11716961] Medical Ce nter Future Scheduled 2005 Lipid panel (procedure) [facility] 00:00:00 [code = 30998713] Medical Ce nter Future Scheduled 2005 Lipid panel (procedure) [facility] 00:00:00 [code = 74182651] Medical Ce nter Future Scheduled 2005 Lipid panel (procedure) [facility] 00:00:00 [code = 08209621] Medical Ce nter Future Scheduled 2005 Lipid panel (procedure) [facility] 00:00:00 [code = 65256903] Medical Ce nter Future Scheduled 2005 Lipid panel (procedure) [facility] 00:00:00 [code = 38334027] Medical Ce nter Future Scheduled 2005 Lipid panel (procedure) [facility] 00:00:00 [code = 16016213] Medical Ce nter Future Scheduled 2005 Lipid panel (procedure) [facility] 00:00:00 [code = 01785040] Medical Ce nter Future Scheduled 1989 DTAP/TDAP/TD [...] [facility] Test 00:00:00 [code = CT Colonography [facility] (combo)] Future Scheduled 1970 Screening for malignant [facility] 00:00:00 neoplasm of colon Medical Ce nter (procedure) [code = 306046123] Future Scheduled 1970 Screening for malignant [facility] 00:00:00 neoplasm of colon Medical Ce nter (procedure) [code = 876000990] Future Scheduled 1970 Sigmoidoscopy [facility]code [facility] Cent[facility] Future Scheduled 1970 Fluoride Varnish [facility] = Fluoride Varnish] Future Scheduled 1970 Screening for malignant [facility] 00:00:00 neoplasm of colon Medical Ce nter (procedure) [code = 489162759] Future Scheduled 1970 Screening for malignant [facility] 00:00:00 neoplasm of colon Medical Ce nter (procedure) [code = 394857606] Future Scheduled 1970 Sigmoidoscopy [facility]code [facility]oscopy] Medical Cente r Future Scheduled 1970 CT Colonography (combo) [facility] 00:00:00 [code = CT Colonography [facility] (combo)] Future Scheduled 1970 Screening for malignant [facility] 00:00:00 neoplasm of colon Medical Ce nter (procedure) [code = 270913234] Future Scheduled 1970 Screening for malignant [facility] 00:00:00 neoplasm of colon Medical Ce nter (procedure) [code = 820268758] Future Scheduled 1970 Sigmoidoscopy [facility]code [facility] S[facility]oscopy] Medical Cente r Future Scheduled 1970 CT Colonography (combo) [facility] 00:00:00 [code = CT Colonography [facility] (combo)] Future Scheduled 1970 Screening for malignant [facility] 00:00:00 neoplasm of colon Medical Ce nter (procedure) [code = 026753168] Future Scheduled 1970 Screening for malignant [facility] 00:00:00 neoplasm of colon Medical Ce nter (procedure) [code = 788252892] Future Scheduled 1970 Sigmoidoscopy [code = [facility] S[facility]oidoscopy] Medical Angele r Future Scheduled 1970 CT Colonography (combo) [facility] 00:00:00 [code = CT Colonography [facility] (combo)] Future Scheduled 1970 Screening for malignant [facility] 00:00:00 neoplasm of colon Medical Ce nter (procedure) [code = 854744702] Future Scheduled 1970 Screening for malignant [facility] 00:00:00 neoplasm of colon Medical Ce nter (procedure) [code = 099869908] Future Scheduled 1970 Sigmoidoscopy [facility]code = [facility] Sigmoidoscopy] Medical Angele r Future Scheduled 1970 CT Colonography (combo) [facility] 00:00:00 [code = CT Colonography [facility] (combo)] Future Scheduled 1970 Screening for malignant [facility] 00:00:00 neoplasm of colon Medical Ce nter (procedure) [code = 696543142] Future Scheduled 1970 Screening for malignant [facility] 00:00:00 neoplasm of colon Medical Ce nter (procedure) [code = 754486475] Future Scheduled 1970 Sigmoidoscopy [code = [facility]:00 Sigmoidoscopy] Medical Angele r Future Scheduled 1970 CT Colonography (combo) [facility] 00:00:00 [code = CT Colonography [facility] (combo)] Future Scheduled 1970 Screening for malignant [facility] 00:00:00 neoplasm of colon Medical Ce nter (procedure) [code = 211454856] Future Scheduled 1970 Screening for malignant [facility] 00:00:00 neoplasm of colon Medical Ce nter (procedure) [code = 645682633] Future Scheduled 1970 Sigmoidoscopy [facility]code = [facility]:00 Sigmoidoscopy] Medical Angele r Future Scheduled 1970 CT Colonography (combo) [facility] 00:00:00 [code = CT Colonography [facility] (combo)] Future Scheduled 1970 Fluoride Varnish [code H [...] Type Clinicians Facility Department ID 2021-06-25 Emergency [facility] [id number] Univers 05:25:12 ity of [facility] 2021-06-25 Emergency [facility] [id number] Univers 01:41:18 ity of [facility] 2021-06-24 Emergency [facility] [id number] Univers 22:38:17 ity of [facility] 2021-06-22 Emergency [facility] [id number] Univers 21:40:44 ity of [facility] 2021-06-22 Emergency [facility] [id number] Univers 13:55:03 ity of [facility] 2021-06-22 Emergency [facility] [id number] Univers 05:54:16 ity of [facility] 2021-06-21 Emergency [facility] [id number] Univers 22:33:24 ity of [facility] 2021-06-21 Emergency [facility] [id number] Univers 22:33:24 ity of [facility] 2021-06-21 Emergency [facility] [id number] Univers 22:22:08 ity of [facility] 2021-06-21 Emergency [facility] [id number] Univers 20:04:56 ity of [facility] 2021-06-21 Emergency [facility] [id number] Univers 19:53:56 ity of [facility] 2021-06-21 Emergency [facility] [id number] Univers 19:37:27 ity of [facility] 2021-06-21 Emergency [facility] [id number] Univers 19:36:41 ity of [facility] 2021-06-21 Emergency [facility] [id number] Univers 17:11:26 ity of [facility] 2021-06-21 Emergency [facility] [id number] Univers 16:44:38 ity of [facility] 2021-06-21 Emergency [facility] [id number] Univers 11:19:16 ity of [facility] 2021-06-21 Emergency [facility] [id number] Univers 10:16:06 ity of [facility] 2021-06-21 Emergency [facility] [id number] Univers 06:08:42 ity of [facility] 2021-06-21 Emergency [facility] [id number] Univers 04:43:23 ity of [facility] 2021-06-21 Emergency [facility] [id number] Univers 04:42:49 ity of [facility] 2021-06-20 Emergency X GORHeidi, [facility] PAKO [id number] Univers 18:31:02 OSMAR ity [facility] 2020-02-23 Inpatient HCAPM LENNY [id number] [facility] 18:42:00 89 [facility] 2020-02-17 Inpatient EM Avtar, HCAPM MAS [id number] [facility] 00:22:00 Oladipo 75 [facility] 2020-01-05 Inpatient UR Perea, HCAPM MEDI.01 [id number] [facility] 20:23:00 Mark 40 [facility] 2019-12-13 Inpatient HCAMN JULIA [id number] [facility] 17:52:00 47 [facility] 2022-04-14 2022-04-14 Transition MELANIE Valdes [id number] Univers 00:00:00 00:00:00 of Care Miryam RECINOS [id number] [id number] [address] Branch 2022-04-09 2022-04-10 Emergency X IBELODIAUNRENETTA, [facility] ERT [id number] Univers 20:38:00 00:14:00 ALVAREZ ity [facility] 2022-04-09 2022-04-10 Emergency [facility] [id number] Univers 20:38:00 00:14:00 Alvarez OROPEZA [id number] ity of [place] 4.2.7.2.686 [facility] [id number] [facility] 084 Branch 2022-04-09 2022-04-09 Transition MELANIE Valdes [id number] Univers 00:00:00 00:00:00 of Care Miryam RECINOS [id number] it y of [place] 4.2.7.2.686 [facility] [id number] [facility] 403 Branch 2022-04-02 2022-04-08 Inpatient X [facility] [id number] Univers 11:42:00 12:30:00 ATHERSAMANTHA, ity o f DIOGO [facility] 2022-04-02 2022-04-08 Hospital Rekha Sheehan [facility] [id number] Univers 11:42:00 12:30:00 Encounter Juventino Thomas [facility] [id number] ity of [place] Diogo Lora DONN 4.2.7.2.686 [place] [id number] [address] ([facility]) 2022-03-29 2022-03-29 Emergency EM White, HCACL AERS [id number] [facility] 14:26:00 16:45:00 Sabi Adams [facility] 2022-03-29 2022-03-29 Emergency EM White, HCACL HCACL [id number] [facility] 14:26:00 16:45:00 Sabi [id number] [facility] 2022-03-25 2022-03-26 Inpatient E RICHARD BL MED [id number] MHBL 13:38:00 10:16:00 , YESSI 2022-03-15 2022-03-18 Emergency E RADHA [facility] MED [id number] [facility] 13:36:00 18:59:00 JULIO 2022-03-13 2022-03-13 Emergency [facility] [id number] Lynne 15:33:00 20:25:00 [facility] 2022-03-13 2022-03-13 Emergency [facility] [id number] Lynne 15:33:00 20:25:00 [facility] 2022-03-13 2022-03-13 [id number] [place] 00:00:00 00:00:00 [facility] 2022-03-06 2022-03-09 [facility] [id number] 12:16:00 12:55:00 Encounter Norma Montalvo Fang-Ying M edical Heinen, Allison P. [facility] 2022-03-06 2022-03-09 [facility] [id number] 12:16:00 12:55:00 Encounter Norma Montalvo Fang-Ying M edical Heinen, Allison P. [facility] 2022-03-06 2022-03-09 Inpatient ER [facility] Emergency 20 [id number] [facility] 12:16:00 12:55:00 2022-03-06 2022-03-06 Outpatient BCM [facility] [id number] [facility] 00:00:00 23:59:00 Albert e 2022-03-06 2022-03-06 Orders [facility] [id number] 00:00:00 00:00:00 Only [facility] 2022-03-06 2022-03-06 Travel [facility] [id number] [facility] 00:[facility]00 00:00:00 [facility] 2022-03-06 2022-03-06 Orders [facility] [id number] 00:00:00 00:00:00 Only [facility] 2022-03-06 2022-03-06 Travel [facility] [id number] [facility] 00:[facility]:00 00:00:00 [facility] 2022-02-18 2022-02-20 Emergency Jamal Carbajald [facility] [id number] [place] 13:58:00 11:55:00 Alona Calvert Ashish D Cavazos, Roberto H 2022-02-18 2022-02-20 Emergency Mitzi Carbajal [facility] [id number] [place] 13:58:00 11:55:00 [facility] Rufino D Fannie Blake 2022-02-18 2022-02-18 Emergency STEVE, [facility] [id number] [place] 15:19:05 15:23:18 [facility] 2022-02-18 2022-02-18 [facility] [id number] [place] 13:58:00 13:58:00 [facility] 2022-02-18 2022-02-18 Outpatient DENIZ [facility] [id number] [place] 00:00:00 00:00:00 , OSCAR Daniels 2022-02-07 2022-02-11 [facility] [id number] [place] 13:40:00 13:22:00 Encounter Antonieta [facility] 2022-02-07 2022-02-11 [facility] [id number] [place] 13:40:00 13:22:00 Encounter Antonieta [facility] 2022-02-07 2022-02-07 Outpatient 1 DAILY ISLAS [facility] [id number] [place] 13:40:00 13:40:00 [facility] 2022-01-30 2022-01-30 Emergency SEAN Pacheco [facility] [id number] [facility] 17:02:00 18:29:00 Dwain 53 [facility] 2022-01-30 2022-01-30 Emergency [facility] [id number] [facility] 17:02:00 18:29:00 Dwain [id number] [facility] 2022-01-22 2022-01-22 Emergency [facility] [id number] [place] 17:24:00 20:39:00 [facility] 2022-01-22 2022-01-22 Emergency [facility] [id number] [place] 17:24:00 20:39:00 [facility] 2022-01-16 2022-01-21 Emergency Raymon Martin [facility] [id number] [place] 11:04:00 18:08:00 [facility] 2022-01-16 2022-01-21 Emergency Raymon Martin [facility] [id number] [place] 11:04:00 18:08:00 [facility] 2022-01-19 2022-01-19 Outpatient [facility] [id number] Lynne 12:34:08 13:29:31 [facility] 2022-01-16 2022-01-16 Outpatient [facility] [id number] [place] 19:42:28 20:01:28 [facility] 2022-01-16 2022-01-16 [facility] [id number] [place] 11:04:00 11:04:00 KARIN Daniels 2022-01-10 2022-01-[address] [facility] [id number] Lynne 10:58:00 11:20:00 Helene Anderson [facility] Merissa Q 2022-01-10 2022-01-[address] [facility] [id number] Lynne 10:58:00 11:20:00 [facility]-10 2022-01-10 [facility] [id number] [place] 10:58:00 10:58:00 [facility] 2022-01-08 2022-01-09 Emergency [facility] [id number] Lynne 17:57:00 02:50:00 [facility] 2022-01-08 2022-01-09 [facility] [place] [id number] Lynne 17:57:00 02:50:00 [facility] 2022-01-08 2022-01-08 Emergency [facility] [id number] Lynne 21:40:34 21:50:19 [facility] 2021-09-23 2021-09-23 Emergency Raffaele Pitts [facility] AERS [id number] [facility] 19:35:00 21:10:00 74 [facility] 2021-09-13 2021-09-13 Emergency ROSHAN COOLEY [facility] [id number] Univers 21:20:00 22:36:00 MICKEY ithiram [facility] 2021-09-13 2021-09-13 Emergency Harrosmery, [facility] 1.2.039.064 [id number] Univers 21:20:00 22:36:00 Mickey A [facility] 350.1.13.10 it [place] [phone] [address] ([facility]) 2021-09-13 2021-09-13 Emergency EM Raffaele Levi [facility] AERS [id number] [facility] 14:57:00 16:37:00 06 [facility] 2021-09-12 2021-09-12 Emergency X VERNON, [facility] ERT [id number] Univers 14:25:00 17:51:00 DWAIN [facility] 2021-09-12 2021-09-12 Emergency Morrical, [place] 1.2.840.114 [id number] Univers 14:25:00 17:51:00 Dwain [facility] 350.1.13.10 [place] [phone] [address] 2021-09-12 2021-09-12 Emergency X JAMEY [facility] ERT [id number] Univers 06:20:00 10:10:00 CONSTANTIN [facility] 2021-09-12 2021-09-12 Emergency Alona Carty [place] 1.2.840 .114 [id number] Univers 06:20:00 10:10:00 Constantin Concepcion [place] 350.1.13.10 [place] [phone] [address] 2021-09-08 2021-09-09 Emergency [facility] ERT [id number] Univers 23:01:00 01:30:00 SEBASTIAN y [facility] 2021-09-08 2021-09-09 Emergency Pacheco, [place] 1.2.050.894 [id number] Univers 23:01:00 01:30:00 Sebastian [facility] 350.1.13.10 [place] [id number] [facility] 014 Branch 2021-09-07 2021-09-07 Emergency X YINA, [facility] ERT [id number] Univers 19:24:00 23:44:00 SEBASTIAN dawny of [facility] 2021-09-07 2021-09-07 Emergency Pacheco, [place] 1.2.342.037 [id number] Univers 19:24:00 23:44:00 Sebastian [facility] 350.1.13.10 [place] [id number] [facility] 014 Branch 2021-09-06 2021-09-06 Emergency X YINA, [facility] ERT [id number] Univers 15:35:00 17:52:00 SEBASTIAN dawny of [facility] 2021-09-06 2021-09-06 Emergency Pacheco, TRAUMA 1.2.516.582 [id number] Univers 15:35:00 17:52:00 Sebastian Lopez [place] 350.1.13.10 it[place] [id number] [facility] 014 Branch 2021-09-06 2021-09-06 Transition Vallejo ASIAEddie 1.2.840.114 [id number] Univers 00:00:00 00:00:00 of Care Emili RECINOS 350.1.13.10 it[place] of [place] [id number] [facility] 403 Branch 2021-08-30 2021-09-05 Inpatient X MAYELA [facility] PAKO [id number] Univers 16:53:00 16:00:00 ity of [facility] 2021-08-30 2021-09-05 Hospital Gayatri Gu 1 .2.840.114 [id number] Univers 16:53:00 16:00:00 Encounter Sophia Andrea 350.1 .13.10 ity of [facility] 4.2.7.2.686 [facility] [phone] Medical 7 Branch 2021-09-03 2021-09-03 Surgery [facility] ABILIO 1.2.840.114 [id number] Univers 07:15:00 10:04:00 MAGGY 350.1.13.10 it y of [facility] 4.2.7.2.686 Javi as [id number] [facility] 103 Branch 2021-08-29 2021-08-29 Emergency X IBELODIAUNRENETTA, [facility] ERT [id number] Univers 17:15:00 20:03:00 FOLUSHO ity of [facility] 2021-08-29 2021-08-29 Emergency Ibikunle, TRAUMA 1.2.840.114 [id number] Univers 17:15:00 20:03:00 [facility] 350.1.13.10 [place] [id number] [facility] 014 Branch 2021-07-29 2021-08-05 Inpatient X [facility] PAKO [id number] Univers 20:15:00 07:43:00 ity of [facility] 2021-07-29 2021-08-05 [facility] Jonah Rees 1.2.840.1 14 [id number] Univers 20:15:00 07:43:00 Encounter Karin Myers 350.1.13.1 0 ity of [facility] 4.2.7.2.686 [place] [id number] [facility] 091 Branch 2021-07-29 2021-07-29 Transition MELANIE [place]le[place] 1.2.840.114 [id number] Univers 00:00:00 00:00:00 of Care Emili RECINOS 350.1.13.10 [place] [id number] [facility] 403 Branch 2021-07-27 2021-07-27 Emergency EM Kateryna, HCAMN JULIA [id number] [facility] 10:15:00 12:36:00 Juan Jose [address] [place] [address] 2021-07-23 2021-07-26 Inpatient X [facility] PAKO [id number] Univers 00:39:00 14:50:00 ity of [facility] 2021-07-23 2021-07-26 Hospital Sabi Schultz 1.2.840 .114 [id number] Univers 00:39:00 14:50:00 Encounter Bia Pedro MAGGY 350.1.13.10 ity of [facility] 4.2.7.2.686 Javi as [phone] [facility] 093 Branch 2021-07-22 2021-07-22 Emergency EM Marcel[facility] [id number] [facility] 04:25:00 08:20:00 Tarrell 74 [facility] 2021-06-27 2021-06-27 Emergency EM White, [facility] AERS [id number] [facility] 15:31:00 17:37:00 Sabi 17 [facility] 2021-06-25 2021-06-25 Orders Doctor BERNARDO 1.2.840.114 [id number] Univers 00:00:00 00:00:00 Only Unassigned, MAGGY 350.1.13.10 ity of [place] [facility] 4.2.7.2.686 Javi as [id number] [facility] 009 Branch 2021-05-31 2021-06-04 Emergency Willie Garrett [facility] 1.2.840.1 14 [id number] Univers 17:10:00 16:38:00 Clementine Castell[facility] 350.1.13.10 ity of [place]i Gann [place] 4.2.7.2.686 [place] Tamika Lyle Bhatt [id number] [address] ([facility]) 2021-05-20 2021-05-21 Emergency Bernardo Donnelly [facility] 1.2.840.114 [id number] Univers 14:29:00 17:10:00 NaylorScott silva Health 350.1.13.10 ity of [place] 4.2.7.2.686 [facility] [phone] [address] ([facility]) 2021-05-10 2021-05-10 Transition Melanie Vallejo 1.2.840.114 [id number] Univers 00:00:00 00:00:00 of Care Emili Recinos 350.1.13.10 [place] of [place] [id number] [facility] 403 Branch 2021-05-07 2021-05-09 Hospital Alona Pérez [facility] 1.2.840.11 [id number] Univers 19:23:00 15:26:00 Encounter Diogo Keane 350.1.13. 10 ity of NeelAbad martin [place] 4.2.7.2.686 [place] [id number] [facility] 114 Branch ([facility]) 2021-04-28 2021-05-01 [facility] [id number] [facility] 21:05:00 14:18:[address] [facility] 2020-09-26 2020-09-26 Emergency Jose [facility] 1.2.978.972 [id number] Univers 16:56:00 23:00:00 Mariaelena Oropeza 350.1.13.10 i ty of [place] [id number] [facility] 084 Branch 2020-08-22 2020-08-24 Emergency Funmilayo Pinzon [facility] 1.2.8 40.114 [id number] Univers 15:31:00 14:20:00 SweeneyBart malik Health 350.1.13.10 ity of Ori Persaud [place] 4.2.7.2.686 [place] B[place] [id number] [facility] 114 [address] ([facility]) 2020-07-09 2020-07-09 Emergency Umbertoeki [facility] 1.2.840.114 [id number] Univers 16:23:00 19:43:00 , Juan M [facility] 350.1.13.10 it[place] [phone] [facility] 014 Branch ([facility]) 2020-06-15 2020-06-15 Patient Saira Goodman Melanie 1.2.840.114 [id number] Univers 00:00:00 00:00:00 Outreach E Recinos 350.1.13.10 i ty [place] [phone] [facility] 403 Branch 2020-06-12 2020-06-12 Patient Saira Goodman 1.2.840.114 [id number] Univers 00:00:00 00:00:00 Outreach E Recinos 350.1.13.10 i ty [place] [phone] [facility] 403 Branch 2020-06-08 2020-06-08 Patient Melanie Emanuel 1.2.840.114 [id number] Univers 00:00:00 00:00:00 Outreach Mela Jjy 350.1.13.10 it[place] [id number] [address] 2020-06-07 2020-06-07 Patient Saira Goodman 1.2.840.114 [id number] Univers 00:00:00 00:00:00 Outreach E Recinos 350.1.13.10 i ty [place] [id number] [facility] 403 [place] 2020-06-05 2020-06-05 Emergency [facility] 1.2.840.114 [id number] Univers 06:47:00 10:55:00 More Oropeza 350.1.13.10 ity of [place] [id number] [facility] 084 Branch 2020-06-04 2020-06-04 [facility] 1.2.776.450 [id number] Univers 10:36:00 13:38:00 [facility] 350.1.13.10 it y of [place] [phone] [facility] 014 Branch ([facility]) 2020-06-04 2020-06-04 Patient Saira Goodman 1.2.840.114 [id number] Univers 00:00:00 00:00:00 Outreach E Recinos 350.1.13.10 [place] [id number] [address] 2020-06-04 2020-06-04 Patient Melanie Emanuel 1.2.840.114 [id number] Univers 00:00:00 00:00:00 Outreach Mela Jjy 350.1.13.10 it[place] [id number] [address] 2020-06-01 2020-06-01 Transition Melanie Vallejo 1.2.840.114 [id number] Univers 00:00:00 00:00:00 of Care Emili Recinos 350.1.13.10 [place] [id number] [address] 2020-05-22 2020-05-31 [facility] Alex Lopez 1.2.840.11 [id number] Univers 14:42:00 18:40:00 Encounter Bia Pedro Maggy 350.1.13.10 ity of Hospital 4.2.7.2.686 [place]avi [place] [id number] [place] [address] [place] 2020-05-31 2020-05-31 Patient Rex Saira Navarro 1.2.840.114 [id number] Univers 00:00:00 00:00:00 Outreach E Recinos 350.1.13.10 [place] [id number] [address] 2020-05-23 2020-05-23 Outpatient R [facility] [id number] -[id number] Univers 10:00:00 10:00:00 [id number] ity of [facility] 2020-05-23 2020-05-23 Patient Rex Saira Navarro 1.2.840.114 [id number] Univers 00:00:00 00:00:00 Outreach E Recinos 350.1.13.10 [place] [id number] [address] 2020-05-23 2020-05-23 Patient Saira Goodman Melanie 1.2.840.114 [id number] Univers 00:00:00 00:00:00 Outreach E Recinos 350.1.13.10 [place] [id number] [address] 2020-05-23 2020-05-23 Patient Melanie Emanuel 1.2.840.114 [id number] Univers 00:00:00 00:00:00 Outreach Mela Recinos 350.1.13.10 [place] [id number] [address] 2020-05-21 2020-05-21 Emergency Donnelly, [facility] 1.2.609.698 [id number] Univers 20:52:00 23:41:00 [facility] 350.1.13.10 it y [place] [phone] [address] ([facility]) 2020-05-20 2020-05-20 Emergency Unknown, TRAUMA 1.2.840.114 [id number] Univers 07:04:00 15:13:00 Attending CENTER 350.1.13.10 [place] [id number] [address] 2020-05-19 2020-05-20 Emergency [facility] 1.2.840.114 [id number] Univers 21:29:00 06:12:00 [facility] 350.1.13.10 it [place] [phone] [address] ([facility]) 2020-05-18 2020-05-18 Patient Saira Goodman 1.2.840.114 [id number] Univers 10:18:59 11:28:59 Outreach Heidi Recinos 350.1.13.10 [place] [id number] [address] 2020-05-18 2020-05-18 Outpatient R [facility] [id number] -[id number] Univers 09:30:00 09:30:00 [id number] ity of [facility] 2020-05-18 2020-05-18 Patient Melanie Emanuel 1.2.840.114 [id number] Univers 00:00:00 00:00:00 Outreach Mela Recinos 350.1.13.10 [place] [id number] [address] 2020-05-17 2020-05-17 Outpatient R [facility] [id number] -[id number] Univers 10:00:00 10:00:00 [id number] ity of [facility] 2020-05-17 2020-05-17 Patient Saira Goodman 1.2.840.114 [id number] Univers 00:00:00 00:00:00 Outreach E Recinos 350.1.13.10 [place] [id number] [address] 2020-05-17 2020-05-17 Patient Asia Emanueleddie 1.2.840.114 [id number] Univers 00:00:00 00:00:00 Outreach Mela W Recinos 350.1.13.10 [place] [id number] [address] 2020-05-15 2020-05-15 Patient Asia Emanueleddie 1.2.840.114 [id number] Univers 00:00:00 00:00:00 Outreach Mela Arvizu Recinos 350.1.13.10 [place] [id number] [address] 2020-05-14 2020-05-14 Transition Melanie Vallejo 1.2.840.114 [id number] Univers 00:00:00 00:00:00 of Care Emili Jjy 350.1.13.10 [place] [id number] [address] 2020-05-04 2020-05-12 [facility] Lora Hall 1.2. 840.114 [id number] Univers 21:09:00 14:03:00 Encounter Carol Ann Jason 350.1.13.10 ity of Hospital 4.2.7.2.686 Javi as [phone] [address] 2020-05-10 2020-05-10 Patient Saira Goodmaneddie 1.2.840.114 [id number] Univers 00:00:00 00:00:00 Outreach E Recinos 350.1.13.10 [place] [id number] [address] 2020-05-09 2020-05-09 Transition Asia Vallejoeddie 1.2.840.114 [id number] Univers 00:00:00 00:00:00 of Care Emili Recinos 350.1.13.10 [place] [id number] [address] 2020-05-08 2020-05-08 Patient Saira Goodman 1.2.840.114 [id number] Univers 00:00:00 00:00:00 Outreach E Recinos 350.1.13.10 i ty [place] [id number] [place] [address] Branch 2020-05-02 2020-05-03 Emergency [facility] 1.2.865.293 [id number] Univers 23:37:00 01:53:00 Joel S [place] 350.1.13.10 ity of [place].2.[place] [phone] [place] 885394 Branch 2020-05-03 2020-05-03 Patient Saira Goodman 1.2.840.114 [id number] Univers 00:00:00 00:00:00 Outreach E Recinos 350.1.13.10 i ty [place] [id number] [place] [address] Branch 2020-05-03 2020-05-03 Transition Melanie Vallejo 1.2.840.114 [id number] Univers 00:00:00 00:00:00 of Care Emili Recinos 350.1.13.10 it[place] of [place] [id number] [place] [address] Branch 2020-03-30 2020-05-02 Hospital Alex Lopez 1.2.840.11 [id number] Univers 16:55:00 16:45:00 Encounter Diogo Keane 350.1.13. 10 ity of [facility] 4.2.7.2.686 [place] [id number] [place] [address] Branch 2020-04-06 2020-04-06 Anesthesia Dana Sampson 1.2.8 40.114 [id number] Univers 09:10:00 11:29:00 Cynthia Herring 350.1.1 3.10 ity of Hospital 4.2.7.2.686 Javi as [phone] [facility] 103 [address] 2020-03-29 2020-03-29 Transition Melanie Vallejo 1.2.840.114 [id number] Univers 00:00:00 00:00:00 of Care Emili Recinos 350.1.13.10 [place] of [place] [id number] [facility] 403 [address] 2020-03-25 2020-03-28 [facility] AndrzejBernardo [facility] 1.2.840.114 [id number] Univers 19:12:00 18:43:00 Encounter Simin Radmargaretam [facility] 350.1.13.1 0 it[place] [id number] [facility] 113 [address] ([facility]) 2020-03-07 2020-03-07 Transition Melanie Vallejo 1.2.840.114 [id number] Univers 00:00:00 00:00:00 of Care Emili Recinos 350.1.13.10 [place] [id number] [facility] 403 [address] 2020-03-02 2020-03-05 [facility] Sabi Begum [facility] 1.2.840.11 4 [id number] Univers 19:53:34 17:23:00 Encounter Eliu Go[facility] 350.1.13.10 ity of SiminSarah de leon Clear 4.2.7.2.686 [place] [id number] [facility] 110 Branch ([facility]) 2020-02-29 2020-02-29 Transition Melanie Vallejo 1.2.840.114 [id number] Univers 00:00:00 00:00:00 of Care Emili Recinos 350.1.13.10 [place] [id number] [facility] 403 Branch 2020-02-26 2020-02-27 Hospital Juventino Mccabe 1.2.840.11 4 [id number] Univers 04:55:41 19:20:00 Encounter Bia Pedro 350.1.13.10 ity of [facility] 4.2.7.2.686 Javi as [id number] [facility] 090 Branch 2020-02-27 2020-02-27 Patient Saira Goodman 1.2.840.114 [id number] Univers 00:00:00 00:00:00 Outreach E Recinos 350.1.13.10 i ty [place] [id number] [facility] 403 Branch 2020-02-25 2020-02-26 Emergency [facility] 1.2.367.760 [id number] Univers 21:25:58 03:55:00 [facility] 350.1.13.10 it y of [place].2.[place].2.[place] [phone] [facility] 014 Branch ([facility]) 2020-02-24 2020-02-24 Outpatient Perea, [facility] LABO [id number] [facility] 07:51:00 07:51:00 Mark 96 [facility] 2020-02-18 2020-02-18 Outpatient Avtar, [facility] LABO [id number] [facility] 00:26:00 00:26:00 Oladipo 05 [facility] 2020-02-07 2020-02-07 Transition Melanie Vallejo 1.2.840.114 [id number] Univers 00:00:00 00:00:00 of Care Emili Recinos 350.1.13.10 it[place] of [place] [id number] [facility] 403 Branch 2020-02-07 2020-02-07 Transition Melanie Vallejo 1.2.840.114 [id number] 00:00:00 00:00:00 of Care Emili Recinos 350.1.13.10 [place] 4.2.7.2.686 [id number] 403 2020-01-28 2020-02-05 Inpatient X [facility] [id number] Univers 18:12:56 15:12:00 RADHESHYAM ity of [facility] 2020-01-28 2020-02-05 [facility] Bernardo Donnelly [facility] 1.2.840.114 [id number] Univers 18:12:56 15:12:00 Encounter Luis [facility] 350.1.13.10 ity of Simin Radheshyam [place] 4.2.7.2.686 [place] [id number] [facility] 114 [address] ([facility]) 2020-01-28 2020-02-05 [facility] Bernardo Donnelly [facility] 1.2.840.114 [id number] 18:12:56 15:12:00 Encounter Luis Carlos [facility] 350.1.13.10 Simin, Radheshyam [place] 4.2.7.2.686 [place] [phone] [place] [address] ([facility]) 2020-01-24 2020-01-26 Emergency Sabi Begum [facility] 1.2.840.1 14 [id number] Univers 18:46:34 19:35:00 Luis Carlos [facility] 350.1.13.10 ity of Simin Radheshyam [place] 4.2.7.2.686 [facility] [id number] [facility] 109 [address] ([facility]) 2020-01-24 2020-01-26 Outpatient X SIMIN NESONAM [facility] [id number] Univers 18:46:34 19:35:00 RADHESHYAM ity of [facility] 2020-01-24 2020-01-26 Emergency BegumSabi simons [facility] 1.2.840.1 14 [id number] 18:46:34 19:35:00 Luis [facility] 350.1.13.10 Simin, Radheshyam [place] 4.2.7.2.686 [place] [phone] [place] [address] ([facility]) 2020-01-05 2020-01-05 Outpatient JOE Perea [id number] [facility] 23:52:00 23:52:00 [facility] 2019-12-28 2019-12-28 Orders Doctor BENRARDO 1.2.840.114 [id number] Univers 00:00:00 00:00:00 Only Unassigned, MAGGY 350.1.13.10 ity of [place] [facility] 4.2.7.2.686 Javi as [phone] Medi mariusz 009 Branch 2019-12-28 2019-12-28 Orders Doctor BERNARDO 1.2.840.114 [id number] 00:00:00 00:00:00 Only Unassigned, MAGGY 350.1.13.10 [place] [facility] 4.2.7.2.686 [id number] 009 2019-12-12 2019-12-12 Emergency [place], TRAUMA 1.2.929.412 [id number] Univers 21:02:30 23:20:00 Osmar C [place] 350.1.13.10 i ty [place] [id number] [facility] mariusz 014 Branch 2019-12-12 2019-12-12 Emergency [place], [place] 1.2.956.760 [id number] 21:02:30 23:20:00 Osmar C [place] 350.1.13.10 4.2.7.2.686 [id number] 014 2017-11-02 2017-11-02 Emergency E [facility] [id number] [address] 08:33:00 08:33:00 [facility] 2017-08-05 2017-08-05 Outpatient [facility] [id number] [place] 00:00:00 00:00:00 Health 2017-07-28 2017-07-28 Outpatient [facility] [id number] [place] 00:00:00 00:00:00 [facility] 2017-06-24 2017-06-24 Outpatient [facility] [id number] [place] 00:00:00 00:00:00 Health 2017-06-22 2017-06-22 Emergency [facility] [id number] [place] 21:37:29 21:37:29 Health 2017-06-22 2017-06-22 Emergency [facility] MED [id number] [place] 21:06:00 21:06:00 Health 2017-06-22 2017-06-22 Outpatient [facility] [id number] [place] 10:02:31 10:02:31 Health 2017-06-09 2017-06-09 Outpatient [facility] [id number] [place] 00:00:00 00:00:00 Health 2017-06-09 2017-06-09 Outpatient [facility] [id number] [place] 00:00:00 00:00:00 Health 2017-05-08 2017-05-08 Emergency [facility] MED [id number] [place] 01:04:44 01:04:44 Health 2017-05-05 2017-05-05 Emergency E [facility] [id number] [address] 08:11:00 08:11:00 [facility] 2017-04-15 2017-04-15 Emergency E [facility] MED [id number] [address] 09:53:00 09:53:00 [facility] 2017-04-14 2017-04-14 Outpatient [facility] [id number] [place] 13:31:02 13:31:02 Health Results Test Description Test [...] 31.6 g/dL 31.2-35 RDW-SD (test code = 07513-4) 56.7 fL 38.5-51.6 H RDW-CV (test code = 788-0) 17.4 % 12.1-15.4 H PLT (test code = 777-3) See_Comment [Au tomated message] The system which ge nerated this result transmit dain reference range: 150 - 32 8 10*3/?L. The reference range was not used to interpret th is result as normal/abnormal . MPV (test code = 95594-3) 9.5 fL 9.8-13 L NRBC/100 WBC (test code = See_Comment [ Automated message] The [id number]) system which [employer] nerated this result transmit dain reference range: 0.0 - 10 .0 /100 WBCs. The reference r meredith was not used to interpr et this result as normal/abnor mal. NRBC x10^3 (test code = See_Comment [Au tomated message] The [id number]) system which [employer] nerated this result transmit dain reference range: 10*3/?L. The reference range was not u sed to interpret this result as normal/abnormal . SEG % (test code = 51299-6) 56 % 33-76 LYMPH % (test code = 28 % 14-54 72462-8) MONO % (test code = 76158-3) 12 % 0-4 H EOS % (test code = 90794-4) 4 % 0-3 H ANC (test code = 753-4) 4.72 10*3/uL 1.99-6.95 PLT ESTIMATE (test code = Normal Normal 9317-9) Lab Interpretation (test Abnormal code = 09124-7) [facility]. METABOLIC PANEL (77076)2022-04-10 04:19:15 Test Item Value Reference Range Interpretation Comments NA (test code = 137 mmol/L 135-145 6812563494) K (test code = 4.6 mmol/L 3.5-5 8483417211) CL (test code = 108 mmol/L 98-108 8245584597) CO2 TOTAL (test code = 22 mmol/L 23-31 L 9971157369) AGAP (test code = 2-16 2731146212) BUN (test code = 16 mg/dL 7-23 4771584815) GLUCOSE (test code = 96 mg/dL 70-110 7457364215) CREATININE (test code = 1.35 mg/dL 0.6-1.25 H 8321893417) TOTAL BILI (test code = 0.4 mg/dL 0.1-1.6 2039935903) CALCIUM (test code = 9.1 mg/dL 8.6-10.6 3247311105) T PROTEIN (test code = 5.5 g/dL 6.3-8.2 L 8742302888) ALBUMIN (test code = 3.9 g/dL 3.5-5 3341306364) ALK PHOS (test code = 58 U/L 34-122 6188345188) ALTv (test code = 41 U/L 5-50 1742-6) AST(SGOT) (test code = 42 U/L 13-40 H 8291943317) eGFR (test code = mL/min/1.73m2 5538861627) GILBERTO (test code = GILBERTO) Association of [...] tests). Lab Interpretation Abnormal (test code = 68535-6) [facility] Test Item Value Reference Range Interpretation Comments LIPASE (test code = 7094455674) 90 U/L 0-220 Lab Interpretation (test code = Normal 79116-2) [facility] 12[facility]00:33 Test Item Value Reference Range Interpretation Comments MAGNESIUM (test code = 7664377918) 1.5 mg/dL 1.7-2.4 L Lab Interpretation (test code = Abnormal 41835-2) [facility] (NA, K, CL, CO2, GLUCOSE, BUN, CREATININE, CA)2022-04-08 11:12:32 Test Item Value Reference Range Interpretation Comments NA (test code = 136 mmol/L 135-145 2483097019) K (test code = 4.1 mmol/L 3.5-5 4070468426) CL (test code = 108 mmol/L 98-108 8807008597) CO2 TOTAL (test code = 25 mmol/L 23-31 3815092683) AGAP (test code = 2-16 5177390506) BUN (test code = 10 mg/dL 7-23 5123370003) GLUCOSE (test code = 82 mg/dL 70-110 8015141284) CREATININE (test code = 1.10 mg/dL 0.6-1.25 5618175845) CALCIUM (test code = 8.3 mg/dL 8.6-10.6 L 6881590147) eGFR (test code = mL/min/1.73m2 3858130389) GILBERTO (test code = GILBERTO) Association of [...] tests). Lab Interpretation Abnormal (test code = 39444-5) [facility]16 11:12:32 Test Item Value Reference Range Interpretation Comments PHOSPHORUS (test code = 6310652925) 2.5 mg/dL 2.5-5 Lab Interpretation (test code = Normal 08751-8) [facility] [id number] 10:47:27 Test Item Value Reference Range Interpretation [...] (test code = 54.4 fL 38.5-51.6 H 96341-0) RDW-CV (test code = 16.9 % 12.1-15.4 H 788-0) PLT (test code = See_Comment [Automated 777-3) message] The sy stem which generated this result transmitted reference range : 150 - 328 10*3/ ?L. The reference r meredith was not used to interpret this result as normal/abnormal . MPV (test code = 9.7 fL 9.8-13 L 41429-8) NRBC/100 WBC (test See_Comment [Automat ed code = 9558107758) message] The system which generated this result transmitted reference range : 0.0 - 10.0 /100 WBCs. The refer ence range was not u sed to interpret th is result as normal/abnormal . NRBC x10^3 (test code See_Comment [Auto mated = 1475643147) message] The s ystem which generated this result transmitted reference range : 10*3/?L. The reference range was not used to interpret this result as normal/abnormal . GRAN MAT (NEUT) % 54.7 % (test code = 770-8) IMM GRAN % (test code 0.40 % = 6227654295) LYMPH % (test code = 33.8 % 736-9) MONO % (test code = 8.7 % 5905-5) EOS % (test code = 2.0 % 713-8) BASO % (test code = 0.4 % 706-2) GRAN MAT x10^3(ANC) 2.95 10*3/uL 1.99-6.95 (test code = 8593273526) IMM GRAN x10^3 (test 0-0.06 code = 1389824509) LYMPH x10^3 (test code 1.82 10*3/uL 1.09-3.23 = 731-0) MONO x10^3 (test code 0.47 10*3/uL 0.36-1.02 = 742-7) EOS x10^3 (test code = 0.11 10*3/uL 0.06-0.53 711-2) BASO x10^3 (test code 0.01-0.09 = 704-7) Lab Interpretation Abnormal (test code = 17249-5) [facility] METABOLIC PANEL (NA, K, CL, CO2, GLUCOSE, BUN, CREATININE, CA)2022-04-06 09:47:17 Test Item Value Reference Range Interpretation Comments NA (test code = 134 mmol/L 135-145 L 2235895921) K (test code = 4.2 mmol/L 3.5-5 Slight 4823627295) hemolysis CL (test code = 114 mmol/L 98-108 H 4279160911) CO2 TOTAL (test code 16 mmol/L 23-31 L = 1972441696) AGAP (test code = 2-16 9434847792) BUN (test code = 16 mg/dL 7-23 Slight 4338381488) hemolysis GLUCOSE (test code = 79 mg/dL 70-110 3004451095) CREATININE (test code 1.00 mg/dL 0.6-1.25 = 0801067485) CALCIUM (test code = 7.5 mg/dL 8.6-10.6 L 6992646867) eGFR (test code = mL/min/1.73m2 9388662649) GILBERTO (test code = GILBERTO) Association of [...] tests). Lab Interpretation Abnormal (test code = 19463-5) [facility] 09:47:17 Test Item Value Reference Range Interpretation Comments MAGNESIUM (test code = 8316275874) 1.2 mg/dL 1.7-2.4 L Lab Interpretation (test code = Abnormal 05699-1) [facility] Hospital[facility] Whole [id number] 09:16:49 Test Item Value Reference Range Interpretation Comments LACTIC ACID (test code = 1.35 mmol/L 0.5-2.2 3158597652) Lab Interpretation (test code = Normal 74685-6) [facility] [id number] 09:13:32 Test Item Value Reference Range Interpretation [...] (test code = 52.4 fL 38.5-51.6 H 48187-2) RDW-CV (test code = 16.6 % 12.1-15.4 H 788-0) PLT (test code = See_Comment [Automated 777-3) message] The sy stem which generated this result transmitted reference range : 150 - 328 10*3/ ?L. The reference r meredith was not used to interpret this result as normal/abnormal . MPV (test code = 10.0 fL 9.8-13 91402-5) NRBC/100 WBC (test See_Comment [Automat ed code = 1084981723) message] The system which generated this result transmitted reference range : 0.0 - 10.0 /100 WBCs. The refer ence range was not u sed to interpret th is result as normal/abnormal . NRBC x10^3 (test code See_Comment [Auto mated = 6017394293) message] The s ystem which generated this result transmitted reference range : 10*3/?L. The reference range was not used to interpret this result as normal/abnormal . GRAN MAT (NEUT) % 48.6 % (test code = 770-8) IMM GRAN % (test code 0.20 % = 6839741795) LYMPH % (test code = 39.4 % 736-9) MONO % (test code = 9.3 % 5905-5) EOS % (test code = 1.9 % 713-8) BASO % (test code = 0.6 % 706-2) GRAN MAT x10^3(ANC) 2.36 10*3/uL 1.99-6.95 (test code = 8745939848) IMM GRAN x10^3 (test 0-0.06 code = 7029336124) LYMPH x10^3 (test code 1.91 10*3/uL 1.09-3.23 = 731-0) MONO x10^3 (test code 0.45 10*3/uL 0.36-1.02 = 742-7) EOS x10^3 (test code = 0.09 10*3/uL 0.06-0.53 711-2) BASO x10^3 (test code 0.03 10*3/uL 0.01-0.09 = 704-7) Lab Interpretation Abnormal (test code = 13503-5) [facility] 07:34:48 Test Item Value Reference Range Interpretation Comments MAGNESIUM (test code = 5431334763) 1.8 mg/dL 1.7-2.4 Lab Interpretation (test code = Normal 27293-2) [facility] [id number] 18:40:18 Test Item Value Reference Range Interpretation Comments PH (test code = 7.32-7.42 L 5946121419) PCO2 PANKAJ (test code = See_Comment [Auto mated message] 8347538056) The system [employer] generated this result transmitted ref erence range: 41 - 51 mmHg. The reference r meredith was not used to interpret this result as normal/abnor mal. PO2 PANKAJ (test code = See_Comment L [Autom ated message] 7530871327) The system [employer] generated this result transmitted ref erence range: 25 - 40 mmHg. The reference r meredith was not used to interpret this result as normal/abnor mal. HCO3 PANKAJ (test code = See_Comment L [Auto mated message] 2542402722) The system [employer] generated this result transmitted ref erence range: 24 - 28 mEq/L. The reference r meredith was not used to interpret this result as normal/abnor mal. AC VBE(BEAKER) (test mEq/L code = 6754690110) Lab Interpretation (test Abnormal code = 85204-4) [facility] METABOLIC PANEL (NA, K, CL, CO2, GLUCOSE, BUN, CREATININE, CA)2022-04-03 18:33:26 Test Item Value Reference Range Interpretation Comments NA (test code = 129 mmol/L 135-145 L 2345705500) K (test code = 3.3 mmol/L 3.5-5 L 3202688589) CL (test code = 100 mmol/L 98-108 0653772917) CO2 TOTAL (test code = 19 mmol/L 23-31 L 8126001197) AGAP (test code = 2-16 3226061928) BUN (test code = 49 mg/dL 7-23 H 2047923593) GLUCOSE (test code = 75 mg/dL 70-110 7163258661) CREATININE (test code = 2.55 mg/dL 0.6-1.25 H 6124677594) CALCIUM (test code = 8.6 mg/dL 8.6-10.6 6874907656) eGFR (test code = mL/min/1.73m2 4985186877) GILBERTO (test code = GILBERTO) Association of [...] tests). Lab Interpretation Abnormal (test code = 79149-3) [facility] HospitalOSMOLALITY, SERUM OR [id number] 15:45:31 Test Item Value Reference Range Interpretation Comments OSMOLALITY (test code = See_Comment [Au tomated message] 3942-2) The system [employer] h generated this result transmitted ref erence range: 278 - 30 5 mOsm/kg. The re ference range was not u sed to interpret this result as normal/abnor mal. Lab Interpretation (test Normal code = 10748-5) [facility] with [id number] 11:27:34 Test Item Value Reference Range Interpretation Comments WBC (test code = See_Comment [Automated 7090-2) message] The sy stem which generated this result transmitted reference range : 4.20 - 10.70 10*3/?L. The reference range was not used to interpret this result as normal/abnormal . RBC (test code = See_Comment L [Automated 919-8) message] The sy stem which generated this [...] RDW-SD (test code = 48.7 fL 38.5-51.6 56646-9) RDW-CV (test code = 15.9 % 12.1-15.4 H 788-0) PLT (test code = See_Comment [Automated 777-3) message] The sy stem which generated this result transmitted reference range : 150 - 328 10*3/ ?L. The reference r meredith was not used to interpret this result as normal/abnormal . MPV (test code = 9.4 fL 9.8-13 L 38313-6) NRBC/100 WBC (test See_Comment [Automat ed code = 4795221499) message] The system which generated this result transmitted reference range : 0.0 - 10.0 /100 WBCs. The refer ence range was not u sed to interpret th is result as normal/abnormal . NRBC x10^3 (test code See_Comment [Auto mated = 9149999032) message] The s ystem which generated this result transmitted reference range : 10*3/?L. The reference range was not used to interpret this result as normal/abnormal . GRAN MAT (NEUT) % 56.0 % (test code = 770-8) IMM GRAN % (test code 0.50 % = 7886721200) LYMPH % (test code = 33.2 % 736-9) MONO % (test code = 8.6 % 5905-5) EOS % (test code = 1.1 % 713-8) BASO % (test code = 0.6 % 706-2) GRAN MAT x10^3(ANC) 3.64 10*3/uL 1.99-6.95 (test code = 5681385536) IMM GRAN x10^3 (test 0.03 10*3/uL 0-0.06 code = 0394156482) LYMPH x10^3 (test code 2.16 10*3/uL 1.09-3.23 = 731-0) MONO x10^3 (test code 0.56 10*3/uL 0.36-1.02 = 742-7) EOS x10^3 (test code = 0.07 10*3/uL 0.06-0.53 711-2) BASO x10^3 (test code 0.04 10*3/uL 0.01-0.09 = 704-7) Lab Interpretation Abnormal (test code = 95032-9) [facility] Metabolic Panel (NA, K, CL, CO2, GLUCOSE, BUN, CREATININE, CA)2022-04-03 10:08:59 Test Item Value Reference Range Interpretation Comments NA (test code = 125 mmol/L 135-145 L 5947396872) K (test code = 3.7 mmol/L 3.5-5 3430914341) CL (test code = 96 mmol/L 98-108 L 6895249057) CO2 TOTAL (test code = 15 mmol/L 23-31 L 0924988006) AGAP (test code = 2-16 7607859442) BUN (test code = 50 mg/dL 7-23 H 8460796368) GLUCOSE (test code = 86 mg/dL 70-110 9984892761) CREATININE (test code = 3.86 mg/dL 0.6-1.25 H 8356632779) CALCIUM (test code = 8.6 mg/dL 8.6-10.6 7182676132) eGFR (test code = mL/min/1.73m2 3953510574) GILBERTO (test code = GILBERTO) Association of [...] tests). Lab Interpretation Abnormal (test code = 19972-2) [facility] Whole [id number] 04:09:02 Test Item Value Reference Range Interpretation Comments LACTIC ACID (test code = 1.54 mmol/L 0.5-2.2 9464360733) Lab Interpretation (test code = Normal 88438-8) [facility] Whole [id number] 00:25:08 Test Item Value Reference Range Interpretation Comments LACTIC ACID (test code = 2.50 mmol/L 0.5-2.2 H 3557085578) Lab Interpretation (test code = Abnormal 23468-7) [facility] WITH [id number] 20:19:45 Test Item Value Reference Range Interpretation Comments WBC (test code = See_Comment H [Automated 6023-2) message] The system which generated this result [...] RDW-SD (test code = 49.8 fL 38.5-51.6 90177-9) RDW-CV (test code = 16.4 % 12.1-15.4 H 788-0) PLT (test code = See_Comment H [Automated 777-3) message] The system which generated this result transmit dain reference range : 150 - 328 10*3/ ?L. The reference range was not u sed to interpret th is result as normal/abnormal . MPV (test code = 10.7 fL 9.8-13 91326-3) NRBC/100 WBC (test See_Comment [Automat ed code = 9292248635) message] The system which generated this result transmit dain reference range : 0.0 - 10.0 /100 WBCs. The reference range was not used to interpret this result as normal/abnormal . NRBC x10^3 (test code See_Comment [Auto mated = 7787295478) message] The system which generated this result transmit dain reference range : 10*3/?L. The reference range was not used to interpret this result as normal/abnormal . GRAN MAT (NEUT) % 73.4 % (test code = 770-8) IMM GRAN % (test code 0.60 % = 2787626984) LYMPH % (test code = 17.2 % 736-9) MONO % (test code = 8.2 % 5905-5) EOS % (test code = 0.2 % 713-8) BASO % (test code = 0.4 % 706-2) GRAN MAT x10^3(ANC) 10.17 10*3/uL 1.99-6.95 H (test code = 0855208569) IMM GRAN x10^3 (test 0.09 10*3/uL 0-0.06 H code = 8926605713) LYMPH x10^3 (test code 2.38 10*3/uL 1.09-3.23 = 731-0) MONO x10^3 (test code 1.13 10*3/uL 0.36-1.02 H = 742-7) EOS x10^3 (test code = 0.03 10*3/uL 0.06-0.53 L 711-2) BASO x10^3 (test code 0.05 10*3/uL 0.01-0.09 = 704-7) Lab Interpretation Abnormal (test code = 04093-6) [facility] W/AUTO [id number] 00:06:00 Test Item Value Reference Range Interpretation [...] = MX#) 0.5 k/mm3 0.1-0.8 N TROPONIN-I [id number] 15:07:00 Test Item Value Reference Range Interpretation Comments TROPONIN-I RAPID 0.00 ng/mL 0.00-0.08 N Performed b y certified (test code = 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 [facility]) [facility]tr Negative: < = 0.08 Positive: [...] changes in trop onin levels characteristic of MD. BASIC METABOLIC [id number] 14:56:00 Test Item Value Reference Range Interpretation [...] MG/DL 70-110 N - XR CHEST 1 [id number] 00:00:00 [facility] : 1970 Sex: M FAX: Sabi Urias MD [phone] [place]: [place] [address]: REG Name: HOANG JOSEPH FSED : 1970 Age/S: 52/M [address] [facility]. Unit #: [id number] Loc: [place] [address] Phys: Sabi Urias MD Acct: [id number] Dis Date: Status: REG ER PHONE #: Exam Date: 03/29/2022 1509 FAX #: Reason: Weakness EXAMS: CPT CODE: [id number] XR CHEST 1 V 76297 PROCEDURE INFORMATION: Exam: XR Chest Exam date [...] 03/29/2022 (1531) PAGE 1 Signed ReportHEPATIC FUNCTION [id number] 06:45:03 Test Item Value Reference Range Interpretation [...] (test code = 13 U/L 6-55 347) County Court Judge ID Philipp HOOD WBASIC METABOLIC [id number] 06:45:02 Test Item Value Reference Range Interpretation [...] S NOT APPLICABLE FOR DIALYSIS PATIEN TS. County Court Judge ID Philipp HOOD WCBC W/PLT COUNT & AUTO [id number] 06:26:54 Test Item Value Reference Range Interpretation [...] (BEAKER) (test code = 2801) U/S, RENAL, [id number] 19:23:00Reason for exam:->acute kidney injury [facility] 1970 Sex: MFINAL REPORT TECHNIQUE: Grayscale ultrasound of the kidneys and bladder with Doppler and spectral analysis. INDICATION: acute kidney injury. COMPARISON: [...] No hydronephrosis. Renal artery and vein are patent.BLADDER: Unremarkable. IMPRESSION:Unremarkable ultrasound of the kidneys. Signed: Amberly Prater MDReport Verified Date/Time: 03/06/2022 19:23:41 Electronically signed by: AMBERLY PRATER MD on 207:23 PM SARS-CoV2/RT-PCR (Asymptomatic ONLY)2022-03-06 19:17:07 Test Item Value Reference Interpretation Comments Range SARS-COV2/RT-PCR Negative Negative The SARS-Co V-2 (test code = target nucleic 24452-2) acids are not detected in thi s [...] revoked sooner. Fact Sheet for Healthcare Providers: https://www.[employer]/Documents/Xp ert%20Xpress%20SAR S%20CoV-2/Fact%20S heets/302-3802%20S ARS-COV-2%20HEALTH CARE%20PROVIDERS%2 0FACT%20SHEET.pdf Fact Sheet for Healthcare Patients: https://www.[employer]/Documents/Xp ert%20Xpress%20SAR S%20CoV-2/Fact%20S heets/302-3801%20S ARS-COV-2%20PATIEN T%20FACT%20SHEET.p df Lab Interpretation Normal (test code = 38607-1) [facility]2022-03-06 19:17:07 Test Item Value Reference Interpretation Comments Range SARS-COV2/RT-PCR Negative Negative The SARS-Co V-2 (test code = target nucleic 14020-6) acids are not detected in thi s [...] revoked sooner. Fact Sheet for Healthcare Providers: https://www.[employer]/Documents/Xp ert%20Xpress%20SAR S%20CoV-2/Fact%20S heets/302-3802%20S ARS-COV-2%20HEALTH CARE%20PROVIDERS%2 0FACT%20SHEET.pdf Fact Sheet for Healthcare Patients: https://www.[employer]/Documents/Xp ert%20Xpress%20SAR S%20CoV-2/Fact%20S heets/302-3801%20S ARS-COV-2%20PATIEN T%20FACT%20SHEET.p df Lab Interpretation Normal (test code = 32654-3) [facility]2022-03-06 19:17:07 Test Item Value Reference Interpretation Comments Range SARS-COV2/RT-PCR Negative Negative The SARS-Co V-2 (test code = target nucleic 69684-8) acids are not detected in thi s [...] revoked sooner. Fact Sheet for Healthcare Providers: https://www.[employer]/Documents/Xp ert%20Xpress%20SAR S%20CoV-2/Fact%20S heets/302-3802%20S ARS-COV-2%20HEALTH CARE%20PROVIDERS%2 0FACT%20SHEET.pdf Fact Sheet for Healthcare Patients: https://www.[employer]/Documents/Xp ert%20Xpress%20SAR S%20CoV-2/Fact%20S heets/302-3801%20S ARS-COV-2%20PATIEN T%20FACT%20SHEET.p df Lab Interpretation Normal (test code = 57758-9) [facility]2022-03-06 19:17:07 Test Item Value Reference Interpretation Comments Range SARS-COV2/RT-PCR Negative Negative The SARS-Co V-2 (test code = target nucleic 32414-8) acids are not detected in thi s [...] revoked sooner. Fact Sheet for Healthcare Providers: https://www.[employer]/Documents/Xp ert%20Xpress%20SAR S%20CoV-2/Fact%20S heets/302-3802%20S ARS-COV-2%20HEALTH CARE%20PROVIDERS%2 0FACT%20SHEET.pdf Fact Sheet for Healthcare Patients: https://www.[employer]/Documents/Xp ert%20Xpress%20SAR S%20CoV-2/Fact%20S heets/302-3801%20S ARS-COV-2%20PATIEN T%20FACT%20SHEET.p df Lab Interpretation Normal (test code = 63178-1) [facility]2022-03-06 19:17:07 Test Item Value Reference Interpretation Comments Range SARS-COV2/RT-PCR Negative Negative The SARS-Co V-2 (test code = target nucleic 64222-8) acids are not detected in thi s [...] revoked sooner. Fact Sheet for Healthcare Providers: https://www.[employer]/Documents/Xp ert%20Xpress%20SAR S%20CoV-2/Fact%20S heets/302-3802%20S ARS-COV-2%20HEALTH CARE%20PROVIDERS%2 0FACT%20SHEET.pdf Fact Sheet for Healthcare Patients: https://www.[employer]/Documents/Xp ert%20Xpress%20SAR S%20CoV-2/Fact%20S heets/302-3801%20S ARS-COV-2%20PATIEN T%20FACT%20SHEET.p df Lab Interpretation Normal (test code = 85893-3) [facility]2022-03-06 19:17:07 Test Item Value Reference Interpretation Comments Range SARS-COV2/RT-PCR Negative Negative The SARS-Co V-2 (test code = target nucleic 14725-0) acids are not detected in thi s [...] revoked sooner. Fact Sheet for Healthcare Providers: https://www.[employer]/Documents/Xp ert%20Xpress%20SAR S%20CoV-2/Fact%20S heets/302-3802%20S ARS-COV-2%20HEALTH CARE%20PROVIDERS%2 0FACT%20SHEET.pdf Fact Sheet for Healthcare Patients: https://www.[employer]/Documents/Xp ert%20Xpress%20SAR S%20CoV-2/Fact%20S heets/302-3801%20S ARS-COV-2%20PATIEN T%20FACT%20SHEET.p df Lab Interpretation Normal (test code = 05523-0) [facility]2022-03-06 19:17:07 Test Item Value Reference Interpretation Comments Range SARS-COV2/RT-PCR Negative Negative The SARS-Co V-2 (test code = target nucleic 26258-9) acids are not detected in thi s [...] revoked sooner. Fact Sheet for Healthcare Providers: https://www.[employer]/Documents/Xp ert%20Xpress%20SAR S%20CoV-2/Fact%20S heets/302-3802%20S ARS-COV-2%20HEALTH CARE%20PROVIDERS%2 0FACT%20SHEET.pdf Fact Sheet for Healthcare Patients: https://www.[employer]/Documents/Xp ert%20Xpress%20SAR S%20CoV-2/Fact%20S heets/302-3801%20S ARS-COV-2%20PATIEN T%20FACT%20SHEET.p df Lab Interpretation Normal (test code = 02437-8) [facility])2022-03-06 19:17:07 Test Item Value Reference Range Interpretation Comments SARS-COV2/RT-PCR Negative Negative The SARS-Co V-2 target (test code = nucleic acids a re not 4782334) detected in thi s specimen. Negative result [...] revoked sooner. Fact Sheet for Healthcare Providers: https://www.[employer]/Documents/Xpert%20Xpress%20SARS%20CoV-2/Fact%20Sheets/3023802%91LSFJ-LNV-1%20 HEALTHCARE%20PROVIDERS%20FACT%20SHEET.pdf Fact Sheet for Healthcare Patients: https://www.[employer].com/Documents/Xpert%20Xp ress%20SARS%20CoV-2/Fact%20Sheets/302-3801%85KRYA-PYQ-7%20PATIENT%20FACT%20SHEET .pdfCREATINE KINASE (CK)2022-03-06 16:19:14 Test Item Value Reference Range Interpretation Comments CREATINE KINASE TOTAL (BEAKER) (test 141 U/L 29-200 code = 380) County Court Judge ID - BST4, [id number] 15:13:16 Test Item Value Reference Range Interpretation Comments FREE T4 (BEAKER) (test code = 655) 0.95 ng/dL 0.70-1.[address] ID - BSTSH/FREE T4 IF [id number] 15:13:16 Test Item Value Reference Range Interpretation Comments THYROID STIMULATING HORMONE 2.060 uIU/mL 0.350-4.940 (BEAKER) (test code = 772) [facility] Court Judge ID - BSB-TYPE NATRIURETIC FACTOR (BNP)2022-03-06 14:26:30 Test Item Value Reference Range Interpretation Comments B-TYPE NATRIURETIC PEPTIDE (BEAKER) < pg/mL 0-100 (test code = 700) [facility] Court Judge ID - JSHIGH SENSITIVITY TROPONIN [id number] 14:14:54 Test Item Value Reference Range Interpretation Comments HIGH SENSITIVITY < pg/ml See_Comment [Automated message] TROPONIN I (test code = The system which 6594168) generated this result transmitted ref erence range: <=35. Th e reference range was not used to interpr et this result as normal/abnormal . [facility] Court Judge ID - JSThe CHAPERON STAT High Sensitivity Troponin-I results should be used in conjunctionwith other diagnostic information such as ECG, clinical observations and information, and patient symptoms to aid in the diagnosis of MD.RAD, CHEST, 1 VIEW, NON [id number] 14:10:00Reason for exam:- >NEUROLOGIC PROBLEMShould this be performed at the bedside?->Yes [facility] 1970 Sex: MFINAL REPORT Chest, 1 view, 03/06/2022 2:03 PM. History: Neurologic problem. Comparison: 03/28/2019. Discussion: The cardiomediastinal silhouette and pulmonary vasculature are within normal limits for a portable exam. The lungs are clear without evidence of consolidation or effusion. The soft tissues and osseous structures are intact. IMPRESSION: No acute cardiopulmonary abnormality. Signed: Alona Browneport Verified Date/Time: 03/06/2022 14:10:44 REHENSIVE METABOLIC [id number] 14:08:22 Test Item Value Reference Range Interpretation [...] S NOT APPLICABLE FOR DIALYSIS PATIEN TS. County Court Judge ID - [id number] 14:07:49 Test Item Value Reference Range Interpretation Comments MAGNESIUM (BEAKER) (test code = 2.0 mg/dL 1.6-2.6 627) County Court Judge ID - [id number] 14:07:49 Test Item Value Reference Range Interpretation Comments PHOSPHORUS (BEAKER) (test code = 5.6 mg/dL 2.3-4.7 H 604) County Court Judge ID - JSLACTIC ACID, [id number] 13:51:04 Test Item Value Reference Range Interpretation Comments LACTATE BLOOD VENOUS 1.32 mmol/L 0.50-2.20 Specime n slightly (2) (BEAKER) (test hemolyzed code = 2872) [facility] Judge ID - JSCBC W/PLT COUNT & AUTO [id number] 13:47:24 Test Item Value Reference Range Interpretation [...] (BEAKER) (test code = 2801) Coronavirus, CoVID-19, [id number] 01:07:20 Test Item Value Reference Range Interpretation Comments COVID-19 (SARS-COV-2) Not Detected Not Detected INTERP RETATION: No (test code = 54422-7) detect able levels of SARS-CoV-2 Coronavirus (COVID-19) [...] SARS-CoV-2 mole cular diagnostic assa y utilizes Entry Level [employer] Mediated Amplification ( TMA) technology to r apidly detect the SARS -CoV-2 (COVID-19) viru s from respiratory adriana ples. In accordance w ith the FDA's kamran nce document "Polic y for Diagnostic Test s for Coronavirus Disease-2019 du ring the [facility]", thi s test was developed, and its performance characteristics were verified by the [facility] [facility] and is authorized for clinical diagno stic use. This labor atory is certified un est[place] the Clinical Laboratory Improvement Amendments (CLI A) as qualified to pe rform high complexity clinical labora tory testing. Lab Interpretation Normal (test code = 48518-0) [facility], [id number] 01:07:20 Test Item Value Reference Range Interpretation Comments COVID-19 (SARS-COV-2) Not Detected Not Detected INTERP RETATION: No (test code = 59111-1) detect able levels of SARS-CoV-2 Coronavirus (COVID-19) [...] SARS-CoV-2 mole cular diagnostic assa y utilizes Entry Level Business Analyst Mediated Amplification ( TMA) technology to r apidly detect the SARS -CoV-2 (COVID-19) viru s from respiratory adriana ples. In accordance w ith the FDA's kamran nce document "Polic y for Diagnostic Test s for Coronavirus Disease-2019 du ring the Public [facility]", thi s test was developed, and its performance characteristics were verified by the [facility] and is authorized for clinical diagno stic use. This labor atory is certified un [place] the Clinical Laboratory Improvement Amendments (CLI A) as qualified to pe rform high complexity clinical labora tory testing. Lab Interpretation Normal (test code = 99325-2) Lynne Surajronavirus, CoVID-19, [id number] 01:07:20 Test Item Value Reference Range Interpretation Comments COVID-19 (SARS-COV-2) Not Detected Not Detected INTERP RETATION: No (test code = 43658-0) detect able levels of SARS-CoV-2 Coronavirus (COVID-19) [...] SARS-CoV-2 mole cular diagnostic assa y utilizes Entry Level Business Analyst Mediated Amplification ( TMA) technology to r apidly detect the SARS -CoV-2 (COVID-19) viru s from respiratory adriana ples. In accordance w ith the FDA's kamran nce document "Polic y for Diagnostic Test s for Coronavirus Disease-2019 du ring the Public [facility]", thi s test was developed, and its performance characteristics were verified by the [facility] and is authorized for clinical diagno stic use. This labor atory is certified [place] the Clinical Laboratory Improvement Amendments (CLI A) as qualified to pe rform high complexity clinical labora tory testing. Lab Interpretation Normal (test code = 03943-4) Maged Ruelasronavirus, CoVID-19, [id number] 01:07:20 Test Item Value Reference Range Interpretation Comments COVID-19 (SARS-COV-2) Not Detected Not Detected INTERP RETATION: No (test code = 49942-7) detect able levels of SARS-CoV-2 Coronavirus (COVID-19) [...] SARS-CoV-2 mole cular diagnostic assa y utilizes Entry Level Business Analyst Mediated Amplification ( TMA) technology to r apidly detect the SARS -CoV-2 (COVID-19) viru s from respiratory adriana ples. In accordance w ith the FDA's kamran nce document "Polic y for Diagnostic Test s for Coronavirus Disease-2018 du [facility] the [facility]", thi s test was developed, and its performance characteristics were verified by the [facility] and is authorized for clinical diagno stic use. This labor atory is certified [place] the Clinical Laboratory Improvement Amendments (CLI A) as qualified to pe rform high complexity clinical labora tory testing. Lab Interpretation Normal (test code = 24911-1) [facility]-19, [id number] 01:07:20 Test Item Value Reference Range Interpretation Comments COVID-19 (SARS-COV-2) Not Detected Not Detected INTERP RETATION: No (test code = 26061-6) detect able levels of SARS-CoV-2 Coronavirus (COVID-19) [...] SARS-CoV-2 mole cular diagnostic assa y utilizes Entry Level Business Analyst Mediated Amplification ( TMA) technology to r apidly detect the SARS -CoV-2 (COVID-19) viru s from respiratory adriana ples. In accordance w ith the FDA's kamran nce document "Polic y for Diagnostic Test s for Coronavirus Disease-2019 du [facility] the Public [facility]", thi s test was developed, and its performance characteristics were verified by the [facility] and is authorized for clinical diagno stic use. This labor atory is certified [place] the Clinical Laboratory Improvement Amendments (CLI A) as qualified to pe rform high complexity clinical labora tory testing. Lab Interpretation Normal (test code = 81016-1) [facility] HospitalYdtkyiRDEJ-VtT-0 ORF1ab Resp Ql OLENA+nhkmv1831-65-08 01:07:20 Test Item Value Reference Range Interpretation Comments Hospitalized? (test No code = 92404-8) ICU? (test code = No 05964-5) Symptomatic as No defined by CDC? (test code = 22196-4) Employed in No Healthcare? (test code = 45202-1) Resident in a No congregate care setting (including nursing homes, residential care for people with intellectual and developmental disabilities, psychiatric treatment facilities, group homes, board and care homes, homeless fci, foster care or other): (test code = 45732-6) SARS-CoV-2 ORF1ab NOT DETECTED Not Detected INTERPRETA TION: No Resp Ql OLENA+probe detectable levels of (test code = SARS-CoV-2 95009-2) Coronavirus (COVID-19) were present in this patient's [...] SARS-CoV-2 mole cular diagnostic assa y utilizes Entry Level Business Analyst Mediated Amplification ( TMA) technology to r apidly detect the SARS -CoV-2 (COVID-19) viru s from respiratory adriana ples. In accordance with\\XC2A0\\the FDA's guidance docume nt "Policy for Diagnostic Test s for Coronavirus Disease-2019 du ring the Public [facility] Emergency", amalia s test was developed, and its performance characteristics were verified by the [facility] and is authorized for clinical diagno stic use. \\XC2A0\\Thi s laboratory is certified under the Clinical Labora tory Improvement Amendments (CLI A) as qualified to pe rform high complexity clinical labora tory testing. POCT GLUCOSE POC docked jzrwkp1335-12-08 08:09:01 Test Item Value Reference Range Interpretation Comments Glucose POC (test code = 13209167) 85 mg/dL 74-106 Lab Interpretation (test code = Normal 22778-4) [facility] GLUCOSE POC docked [id number] 08:09:01 Test Item Value Reference Range Interpretation Comments Glucose POC (test code = 98966662) 85 mg/dL 74-106 Lab Interpretation (test code = Normal 14144-6) [facility] GLUCOSE POC docked sbngve0172-01-35 08:09:01 Test Item Value Reference Range Interpretation Comments Glucose POC (test code = 45868582) 85 mg/dL 74-106 Lab Interpretation (test code = Normal 32198-2) [facility] GLUCOSE POC docked [id number] 08:09:01 Test Item Value Reference Range Interpretation Comments Glucose POC (test code = 64174613) 85 mg/dL 74-106 Lab Interpretation (test code = Normal 12735-0) [facility] GLUCOSE POC docked xowkml3881-73-60 08:09:01 Test Item Value Reference Range Interpretation Comments Glucose POC (test code = 19794496) 85 mg/dL 74-106 Lab Interpretation (test code = Normal 00171-1) [facility] HospitalCcxbysDAIT-FvE-3 ORF1ab Resp Ql OLENA+dzvsf1273-82-20 23:25:40 Test Item Value Reference Range Interpretation Comments Hospitalized? (test No code = 76590-1) ICU? (test code = No 94787-6) Symptomatic as No defined by CDC? (test code = 57706-8) Employed in No Healthcare? (test code = 87366-9) Resident in a No congregate care setting (including nursing homes, residential care for people with intellectual and developmental disabilities, psychiatric treatment facilities, group homes, board and care homes, homeless fci, foster care or other): (test code = 64212-9) SARS-CoV-2 ORF1ab NOT DETECTED Not Detected INTERPRETA TION: No Resp Ql OLENA+probe detectable levels of (test code = SARS-CoV-2 36754-9) Coronavirus (COVID-19) were present in this patient's [...] SARS-CoV-2 mole cular diagnostic assa y utilizes Entry Level Business Analyst Mediated Amplification ( TMA) technology to r apidly detect the SARS -CoV-2 (COVID-19) viru s from respiratory adriana ples. In accordance with\\XC2A0\\the FDA's guidance docume nt "Policy for Diagnostic Test s for Coronavirus Disease-2019 du ring [facility]", amalia s test was developed, and its performance characteristics were verified by the [facility] and is authorized for clinical diagno stic use. \\XC2A0\\Thi s laboratory is certified under the Clinical Labora tory Improvement Amendments (CLI A) as qualified to pe rform high complexity clinical labora tory testing. 12 Lead [id number] 15:46:1012 LEAD EKG FOR [facility] Test Date: 8178-20-81Sxk Name: DORA JOSEPH Department: 5ECIPatient ID: [id number] Room: Gender: M Chief Environmental Commitment Officer: [id number]: 1970 Requested By: SUSHIL Cho Number: [id number] Reading MD: Rene Patterson MeasurementsIntervals [place] Rate: 61 P: 72PR: 152 QRS: 55QRSD: 106 T: 63QT: 398 QTc: 400 Interpretive StatementsSINUS RHYTHMPOSSIBLE RIGHT VENTRICULAR CONDUCTION DELAY [RSR (QR) IN V1/V2]Electronically Signed On 01-22-2022 8:30:45 CDT by Rene AvitiaExRo TechnologiesComparust Vswgmm52 Lead [id number] 15:46:1012 LEAD EKG FOR [facility] Test Date: 7579-02-29Ddg Name: DORA JOSEPH Department: 5ECIPatient ID: [id number] Room: Gender: M Chief Environmental Commitment Officer: [id number]: 1970 Requested By: SUSHIL Cho Number: [id number] Reading MD: Rene Patterson MeasurementsIntervals [place] Rate: 61 P: 72PR: 152 QRS: 55QRSD: 106 T: 63QT: 398 QTc: 400 Interpretive StatementsSINUS RHYTHMPOSSIBLE RIGHT VENTR ICULAR CONDUCTION DELAY [RSR (QR) IN V1/V2]Electronically Signed On 01-22-2022 8:30:45 CDT by Rene Valle Fkzfxj52 Lead [id number] 15:46:1012 LEAD EKG FOR [facility] Test Date: 9630-32-62Mkf Name: DORA JOSEPH Department: 5ECIPatient ID: [id number] Room: Gender: M Chief Environmental Commitment Officer: [id number]: 1970 Requested By: SUSHIL Cho Number: [id number] Reading MD: Rene Patterson MeasurementsIntervals [place] Rate: 61 P: 72PR: 152 QRS: 55QRSD: 106 T: 63QT: 398 QTc: 400 Interpretive StatementsSINUS RHYTHMPOSSIBLE RIGHT VENTRICULAR CONDUCTION DELAY [RSR (QR) IN V1/V2]Electronically Signed On 6-1-2022 8:30:45 CDT by [facility] On Freight, LLCMed[facility]12 Lead [id number] 15:46:1012 LEAD EKG FOR [facility] Test Date: 4797-38-42Wau Name: DORA JOSEPH Department: 5ECIPatient ID: [id number] Room: Gender: M Chief Environmental Commitment Officer: [id number]: 1970 Requested By: SUSHIL Cho Number: [id number] Reading MD: Rene Patterson MeasurementsIntervals [place] Rate: 61 P: 72PR : 152 QRS: 55QRSD: 106 T: 63QT: 398 QTc: 400 Interpretive StatementsSINUS RHYTHMPOSSIBLE RIGHT VENTRICULAR CONDUCTION DELAY [RSR (QR) IN V1/V2]Electronically Signed On 01-22-2022 8:30:45 CDT by [facility] HospitalDebbyTanya [place] [address] Lead [id number] 15:46:1012 LEAD EKG FOR [facility] Test Date: 0256-94-08Dzv Name: DORA JOSEPH Department: 5ECIPatient ID: [id number] Room: Gender: M Chief Environmental Commitment Officer: [id number]: 1970 Requested By: SUSHIL Cho Number: [id number] Reading MD: Rene Patterson MeasurementsIntervals [place] Rate: 61 P: 72PR:152 QRS: 55QRSD: 106 T: 63QT: 398 QTc: 400 Interpretive StatementsSINUS RHYTHMPOSSIBLE RIGHT VENTRICULAR CONDUCTION DELAY [RSR (QR) IN V1/V2]Electronically Signed On 01-22-2022 8:30:45 CDT by On license of [facility] Ab+HIV1 p24 Ag SerPl Ql [id number] 07:02:58 Test Item Value Reference Range Interpretation Comments HIV 1+2 Ab+HIV1 p24 Ag SerPl Ql IA NEGATIVE Negative (test code = 61851-8) [id number] 21:23:2512 LEAD EKG FOR [facility] Test Date: 4663-74-50Usb Name: DORA JOSEPH Department: 5520Patient ID: [id number] Room: 5V19Ormxuw: M Chief Environmental Commitment Officer: : 1970 Requested By: JESSICA AOrder Number: [id number] Reading MD: Chiara Calles MeasurementsIntervals [place] Rate: 72 P: 90PR: 157 QRS: 87QRSD: 105 T: 90QT: 360 QTc: 384 Interpretive StatementsSINUS RHYTHMPOSSIBLE RIGHT VENTRICULAR CONDUCTION DELAY [RSR (QR) IN V1/V2]EARLY REPOLARIZATION [ST ELEVATION WITH NORMALLY INFLECTEDT- WAVE]Electronically Signed On 01-17-2022 13:02:30 CDT by [facility] IssaquahNetstoryAndrew [place] [address]GqbgwhZRR7046-46-84 21:23:2512 LEAD EKG FOR [facility] Test Date: 8699-61-13Eop Name: DORA PAEZRY Department: 5520Patient ID: [id number] Room: 5W91Igrqnq: M Chief Environmental Commitment Officer: : 1970 Requested By: KARIN BASSETT AOrder Number: [id number] Reading MD: Chiara Calles MeasurementsIntervals [place] Rate: 72 P: 90PR: 157 QRS: 87QRSD: 105 T: 90QT: 360 QTc: 384 Interpretive StatementsSINUS RHYTHMPOSSIBLE RIGHT VENTRICULAR CONDUCTION DELAY [RSR (QR) IN V1/V2]EARLY REPOLARIZATION [ST ELEVATION WITH NORMALLY INFLECTEDT- WAVE]Electronically Signed On 01-17-2022 13:02:30 CDT by Implicit Monitoring SolutionsEureka Springs HospitalVoölks [id number] 21:23:2512 LEAD EKG FOR [facility] Test Date: 1188-42-15Buu Name: DORA GABRIELS Department: 5520Patient ID: [id number] Room: 5C48Vukfkb: M Chief Environmental Commitment Officer: : 1970 Requested By: KARIN BASSETT AOrder Number: [id number] Reading MD: Chiara Calles MeasurementsIntervals [place] Rate: 72 P: 90PR: 157 QRS: 87QRSD: 105 T: 90QT: 360 QTc: 384 Interpretive StatementsSINUS RHYTHMPOSSIBLE RIGHT VENTRICULAR CONDUCTION DELAY [RSR (QR) IN V1/V2]EARLY REPOLARIZATION [ST ELEVATION WITH NORMALLY INFLECTED T- WAVE]Electronically Signed On 01-17-2022 13:02:30 CDT by Implicit Monitoring SolutionsCascade Medical CenterPjcdajZRI4148-59-60 21:23:2512 LEAD EKG FOR [facility] Test Date: 2104-07-32Wsf Name: DORA JOSEPH Department: 5520Patient ID: [id number] Room: 3A31Smfyuw: M Chief Environmental Commitment Officer: : 1970 Requested By: JESSICA AOrder Number: [id number] Reading MD: Chiara Calles MeasurementsIntervals [place] Rate: 72 P: 90PR: 157 QRS: 87QRSD: 105 T: 90QT: 360 QTc: 384 Interpretive StatementsSINUS RHYTHMPOSSIBLE RIGHT VENTRICULAR CONDUCTION DELAY [RSR (QR) IN V1/V2]EARLY REPOLARIZATION [ST ELEVATION WITH NORMALLY INFLECTEDT- WAVE]Electronically Signed On 01-17-2022 13:02:30 CDT by [facility]pec[facility] Filter Sensing TechnologiesEureka Springs HospitalVoölks [id number] 21:23:2512 LEAD EKG FOR [facility] Test Date: 9547-04-71Odo Name: DORA JOSEPH Department: 5520Patient ID: [id number] Room: 9O55Rzmash: M Chief Environmental Commitment Officer: : 1970 Requested By: KARIN BASSETT AOrder Number: [id number] Reading MD: Chiara Calles MeasurementsIntervals [place] Rate: 72 P: 90PR:157 QRS: 87QRSD: 105 T: 90QT: 360 QTc: 384 Interpretive StatementsSINUS RHYTHMPOSSIBLE RIGHT VENTRICULAR CONDUCTION DELAY [RSR (QR) IN V1/V2]EARLY REPOLARIZATION [ST ELEVATION WITH NORMALLY INFLECTED T- WAVE]Electronically Signed On 01-17-2022 13:02:30 CDT by [facility] Filter Sensing TechnologiesIsland HospitalFiblhtWXRB-LzF-5 ORF1ab Resp Ql OLENA+bvbza6477-52-39 19:57:49 Test Item Value Reference Range Interpretation Comments Hospitalized? (test No code = 40637-3) ICU? (test code = No 28151-4) Symptomatic as No defined by CDC? (test code = 82702-5) Employed in No Healthcare? (test code = 76148-8) Resident in a No congregate care setting (including nursing homes, residential care for people with intellectual and developmental disabilities, psychiatric treatment facilities, group homes, board and care homes, homeless fci, foster care or other): (test code = 99437-7) SARS-CoV-2 ORF1ab NOT DETECTED Not Detected INTERPRETA TION: No Resp Ql OLENA+probe detectable levels of (test code = SARS-CoV-2 30993-5) Coronavirus (COVID-19) were present in this patient's [...] SARS-CoV-2 mole cular diagnostic assa y utilizes Entry Level Business Analyst Mediated Amplification ( TMA) technology to r apidly detect the SARS -CoV-2 (COVID-19) viru s from respiratory adriana ples. In accordance with\\XC2A0\\the FDA's guidance docume nt "Policy for Diagnostic Test s for Coronavirus Disease-2019 du [facility] the [facility] Emergency", amalia s test was developed, and its performance characteristics were verified by the [facility] and is authorized for clinical diagno stic use. \\XC2A0\\Amalia s laboratory is certified under the Clinical Labora tory Improvement Amendments (CLI A) as qualified to pe rform high complexity clinical labora tory testing. POCT CREATININE POC docked [id number] 13:57:55 Test Item Value Reference Range Interpretation Comments Creatinine POC (test 2.4 mg/dL 0.6-1.3 H Physici an Notified code = 36245981) eGFR If non- Am 30 See_Comment L [Aut omated message] (test code = 49193780) The s ystem which generated this result transmit dain reference range : >=90 mL/min/1.7 3 m2. The reference r meredith was not used to interpret this result as normal/abnormal . eGFR If Am (test 35 See_Comment L [A utomated message] code = 60678619) The system which generated this result transmit dain reference range : >=90 mL/min/1.7 3 m2. The reference r meredith was not used to interpret this result as normal/abnormal . Lab Interpretation (test Abnormal code = 36875-6) [facility] CREATIN[facility] POC docked [id number] 13:57:55 Test Item Value Reference Range Interpretation Comments Creatinine POC (test 2.4 mg/dL 0.6-1.3 H Physici an Notified code = 60424521) eGFR If non- Am 30 See_Comment L [Aut omated message] (test code = 93243194) The s ystem which generated this result transmit dain reference range : >=90 mL/min/1.7 3 m2. The reference r meredith was not used to interpret this result as normal/abnormal . eGFR If Am (test 35 See_Comment L [A utomated message] code = 02191389) The system which generated this result transmit dain reference range : >=90 mL/min/1.7 3 m2. The reference r meredith was not used to interpret this result as normal/abnormal . Lab Interpretation (test Abnormal code = 51459-2) [facility] CREATININE POC docked ywprog2800-58-96 13:57:55 Test Item Value Reference Range Interpretation Comments Creatinine POC (test 2.4 mg/dL 0.6-1.3 H Physici an Notified code = 44050179) eGFR If non- Am 30 See_Comment L [Aut omated message] (test code = 35942494) The s ystem which generated this result transmit dain reference range : >=90 mL/min/1.7 3 m2. The reference r meredith was not used to interpret this result as normal/abnormal . eGFR If Am (test 35 See_Comment L [A utomated message] code = 84167641) The system which generated this result transmit dain reference range : >=90 mL/min/1.7 3 m2. The reference r meredith was not used to interpret this result as normal/abnormal . Lab Interpretation (test Abnormal code = 70297-5) [facility] CREATININE POC docked eoohdk0519-49-89 13:57:55 Test Item Value Reference Range Interpretation Comments Creatinine POC (test 2.4 mg/dL 0.6-1.3 H Physici an Notified code = 72337219) eGFR If non- Am 30 See_Comment L [Aut omated message] (test code = 86642035) The s ystem which generated this result transmit dain reference range : >=90 mL/min/1.7 3 m2. The reference r meredith was not used to interpret this result as normal/abnormal . eGFR If Am (test 35 See_Comment L [A utomated message] code = 99646865) The system which generated this result transmit dain reference range : >=90 mL/min/1.7 3 m2. The reference r meredith was not used to interpret this result as normal/abnormal . Lab Interpretation (test Abnormal code = 59564-4) [facility] CREATININE POC docked ocahtw4988-10-05 13:57:55 Test Item Value Reference Range Interpretation Comments Creatinine POC (test 2.4 mg/dL 0.6-1.3 H Physici an Notified code = 57854219) eGFR If non- Am 30 See_Comment L [Aut omated message] (test code = 13477192) The s ystem which generated this result transmit dain reference range : >=90 mL/min/1.7 3 m2. The reference r meredith was not used to interpret this result as normal/abnormal . eGFR If Am (test 35 See_Comment L [A utomated message] code = 48764631) The system which generated this result transmit dain reference range : >=90 mL/min/1.7 3 m2. The reference r meredith was not used to interpret this result as normal/abnormal . Lab Interpretation (test Abnormal code = 74867-1) [facility] BMP POC docked [id number] 13:48:46 Test Item Value Reference Range Interpretation Comments Sodium POC (test code = 126 mmol/L 136-145 L 29121655) Potassium POC (test code 4.4 mmol/L 3.5-5.1 = 66170084) Chloride POC (test code 100 mmol/L 98-107 = 43229996) TCO2 POC (test code = 17 mmol/L 21-32 L Physic aylin Notified 83808126) Urea Nitrogen POC (test 36 mg/dL 7-18 H code = 82005378) Glucose POC (test code = 114 mg/dL 74-106 H 00290811) Hemoglobin POC (test 11.9 g/dL 12-16 L code = 56587115) Hematocrit POC (test 35.0 % 37.0-47.0 L code = 14799780) Lab Interpretation (test Abnormal code = 26920-3) [facility] POC docked [id number] 13:48:46 Test Item Value Reference Range Interpretation Comments Sodium POC (test code = 126 mmol/L 136-145 L 40154340) Potassium POC (test code 4.4 mmol/L 3.5-5.1 = 89096100) Chloride POC (test code 100 mmol/L 98-107 = 25630949) TCO2 POC (test code = 17 mmol/L 21-32 L Physic aylin Notified 03486815) Urea Nitrogen POC (test 36 mg/dL 7-18 H code = 76573354) Glucose POC (test code = 114 mg/dL 74-106 H 05908965) Hemoglobin POC (test 11.9 g/dL 12-16 L code = 26554221) Hematocrit POC (test 35.0 % 37.0-47.0 L code = 73896545) Lab Interpretation (test Abnormal code = 34555-8) [facility] POC docked [id number] 13:48:46 Test Item Value Reference Range Interpretation Comments Sodium POC (test code = 126 mmol/L 136-145 L 56076974) Potassium POC (test code 4.4 mmol/L 3.5-5.1 = 17118155) Chloride POC (test code 100 mmol/L 98-107 = 12984337) TCO2 POC (test code = 17 mmol/L 21-32 L Physic aylin Notified 37534534) Urea Nitrogen POC (test 36 mg/dL 7-18 H code = 04535772) Glucose POC (test code = 114 mg/dL 74-106 H 47376144) Hemoglobin POC (test 11.9 g/dL 12-16 L code = 87852917) Hematocrit POC (test 35.0 % 37.0-47.0 L code = 25898011) Lab Interpretation (test Abnormal code = 73556-9) [facility] BMP POC docked [id number] 13:48:46 Test Item Value Reference Range Interpretation Comments Sodium POC (test code = 126 mmol/L 136-145 L 44558187) Potassium POC (test code 4.4 mmol/L 3.5-5.1 = 95173358) Chloride POC (test code 100 mmol/L 98-107 = 93424718) TCO2 POC (test code = 17 mmol/L 21-32 L Physic aylin Notified 02252283) Urea Nitrogen POC (test 36 mg/dL 7-18 H code = 34426375) Glucose POC (test code = 114 mg/dL 74-106 H 70361578) Hemoglobin POC (test 11.9 g/dL 12-16 L code = 01499834) Hematocrit POC (test 35.0 % 37.0-47.0 L code = 05327255) Lab Interpretation (test Abnormal code = 36149-4) [facility] BMP POC docked gxmwex6447-98-16 13:48:46 Test Item Value Reference Range Interpretation Comments Sodium POC (test code = 126 mmol/L 136-145 L 59966513) Potassium POC (test code 4.4 mmol/L 3.5-5.1 = 52121571) Chloride POC (test code 100 mmol/L 98-107 = 58864212) TCO2 POC (test code = 17 mmol/L 21-32 L Physic aylin Notified 31382100) Urea Nitrogen POC (test 36 mg/dL 7-18 H code = 21058651) Glucose POC (test code = 114 mg/dL 74-106 H 60131572) Hemoglobin POC (test 11.9 g/dL 12-16 L code = 21433115) Hematocrit POC (test 35.0 % 37.0-47.0 L code = 89562906) Lab Interpretation (test Abnormal code = 09721-2) [facility]-CoV-2 ORF1ab Resp Ql OLENA+mxjew4899-35-12 20:25:16 Test Item Value Reference Range Interpretation Comments Hospitalized? (test No code = 33865-7) ICU? (test code = No 81771-9) Symptomatic as No defined by CDC? (test code = 42539-1) Employed in No Healthcare? (test code = 67951-9) Resident in a No congregate care setting (including nursing homes, residential care for people with intellectual and developmental disabilities, psychiatric treatment facilities, group homes, board and care homes, homeless fci, foster care or other): (test code = 16402-0) SARS-CoV-2 ORF1ab NOT DETECTED Not Detected INTERPRETA TION: No Resp Ql OLENA+probe detectable levels of (test code = SARS-CoV-2 57365-6) Coronavirus (COVID-19) were present in this patient's [...] SARS-CoV-2 mole cular diagnostic assa y utilizes Entry Level Business Analyst Mediated Amplification ( TMA) technology to r apidly detect the SARS -CoV-2 (COVID-19) viru s from respiratory adriana ples. In accordance with\\XC2A0\\the FDA's guidance docume nt "Policy for Diagnostic Test s for Coronavirus Disease-2019 du ring the Public Heal Emergency", amalia s test was developed, and its performance characteristics were verified by the [facility] molecular diagn ostics laboratory and is authorized for clinical diagno stic use. \\XC2A0\\Thi s laboratory is certified under the Clinical Labora tory Improvement Amendments (CLI A) as qualified to pe rform high complexity clinical labora tory testing. POCT VBG POC docked [id number] 11:16:15 Test Item Value Reference Range Interpretation Comments pH, Pankaj POC (test code 7.32 7.33-7.43 L = 54984243) pCO2,Pankaj POC (test code 31.0 See_Comment L [Au tomated = 47288005) message] The sy stem which generated this result transmitted reference range : 38 - 50 mmHg. The reference range was not used to interpret this result as normal/abnormal . PO2, Venous POC (BKR) 44 See_Comment L [Auto mated (test code = 01507788) Cell Genesysa ge] The system which generated this result transmitted reference range : 50 - 75 mm Hg. The reference range was not used to interpret this result as normal/abnormal . Ionized Calcium POC 1.24 mmol/L 1.15-1.29 (test code = 46006677) HCO3, Pankaj POC (test 16 mmol/L 22-26 L code = 83239860) TCO2 POC (test code = 17 mmol/L 21-32 L 45563586) Base Deficit, Pankaj POC -9 (test code = 84326774) Sample Type (test code IVEN Physi erik Notified = 68164365) % Sat, Pankaj POC (test 77 % code = 48592856) Lab Interpretation Abnormal (test code = 77278-3) [facility] VB POC docked [id number] 11:16:15 Test Item Value Reference Range Interpretation Comments pH, Pankaj POC (test code 7.32 7.33-7.43 L = 57286797) pCO2,Pankaj POC (test code 31.0 See_Comment L [Au tomated = 46841206) message] The sy stem which generated this result transmitted reference range : 38 - 50 mmHg. The reference range was not used to interpret this result as normal/abnormal . PO2, Venous POC (BKR) 44 See_Comment L [Auto mated (test code = 79806260) Cell [employer]] The system which generated this result transmitted reference range : 50 - 75 mm Hg. The reference range was not used to interpret this result as normal/abnormal . Ionized Calcium POC 1.24 mmol/L 1.15-1.29 (test code = 42680943) HCO3, Pankaj POC (test 16 mmol/L 22-26 L code = 75047094) TCO2 POC (test code = 17 mmol/L 21-32 L 95747556) Base Deficit, Pankaj POC -9 (test code = 52625421) Sample Type (test code IVEN Physi erik Notified = 64867825) % Sat, Pankaj POC (test 77 % code = 31429402) Lab Interpretation Abnormal (test code = 43447-9) [facility] VBG POC docked [id number] 11:16:15 Test Item Value Reference Range Interpretation Comments pH, Pankaj POC (test code 7.32 7.33-7.43 L = 49835166) pCO2,Pankaj POC (test code 31.0 See_Comment L [Au tomated = 77038824) message] The sy stem which generated this result transmitted reference range : 38 - 50 mmHg. The reference range was not used to interpret this result as normal/abnormal . PO2, Venous POC (BKR) 44 See_Comment L [Auto mated (test code = 12357629) Cell [employer] ge] The system which generated this result transmitted reference range : 50 - 75 mm Hg. The reference range was not used to interpret this result as normal/abnormal . Ionized Calcium POC 1.24 mmol/L 1.15-1.29 (test code = 82371250) HCO3, Pankaj POC (test 16 mmol/L 22-26 L code = 75872753) TCO2 POC (test code = 17 mmol/L 21-32 L 23416831) Base Deficit, Pankaj POC -9 (test code = 19161965) Sample Type (test code STEPAN Physi erik Notified = 69439591) % Sat, Pankaj POC (test 77 % code = 83690585) Lab Interpretation Abnormal (test code = 24929-6) [facility] VBG POC docked [id number] 11:16:15 Test Item Value Reference Range Interpretation Comments pH, Pankaj POC (test code 7.32 7.33-7.43 L = 77096112) pCO2,Pankaj POC (test code 31.0 See_Comment L [Au tomated = 48349369) message] The sy stem which generated this result transmitted reference range : 38 - 50 mmHg. The reference range was not used to interpret this result as normal/abnormal . PO2, Venous POC (BKR) 44 See_Comment L [Auto mated (test code = 78338225) Cell [employer] ge] The system which generated this result transmitted reference range : 50 - 75 mm Hg. The reference range was not used to interpret this result as normal/abnormal . Ionized Calcium POC 1.24 mmol/L 1.15-1.29 (test code = 37735137) HCO3, Pankaj POC (test 16 mmol/L 22-26 L code = 88038816) TCO2 POC (test code = 17 mmol/L 21-32 L 57338060) Base Deficit, Pankaj POC -9 (test code = 64369827) Sample Type (test code IVFLORENCE Physi erik Notified = 29337865) % Sat, Pankaj POC (test 77 % code = 54874976) Lab Interpretation Abnormal (test code = 89491-4) [facility] VBG POC docked [id number] 11:16:15 Test Item Value Reference Range Interpretation Comments pH, Pankaj POC (test code 7.32 7.33-7.43 L = 84518305) pCO2,Pankaj POC (test code 31.0 See_Comment L [Au tomated = 63762950) message] The sy stem which generated this result transmitted reference range : 38 - 50 mmHg. The reference range was not used to interpret this result as normal/abnormal . PO2, Venous POC (BKR) 44 See_Comment L [Auto mated (test code = 87933979) messa ge] The system which generated this result transmitted reference range : 50 - 75 mm Hg. The reference range was not used to interpret this result as normal/abnormal . Ionized Calcium POC 1.24 mmol/L 1.15-1.29 (test code = 65095429) HCO3, Pankaj POC (test 16 mmol/L 22-26 L code = 14603134) TCO2 POC (test code = 17 mmol/L 21-32 L 91285152) Base Deficit, Pankaj POC -9 (test code = 25110363) Sample Type (test code IVFLORENCE Physi erik Notified = 85682608) % Sat, Pankaj POC (test 77 % code = 42549789) Lab Interpretation Abnormal (test code = 86536-4) [place] [address] LEAD [id number] 20:59:5612 LEAD EKG FOR P [facility] Test Date: 5939-69-01Azl Name: DORA JOSEPH Department: 5520Patient ID: [id number] Room: Gender: M Chief Environmental Commitment Officer: [id number]: 1970 Requested By: TANJA Garza Number: [id number] Reading MD: Chiara Calles MeasurementsIntervals [place] Rate: 75 P: 84PR: 153 QRS: 67QRSD: 104 T: 77QT: 344 QTc: 373 Interpretive StatementsSINUS RHYTHMPOSSIBLE RIGHT VENTRICULAR CONDUCTION DELAY [RSR (QR) IN V1/V2]Electronically Signed On 01-09-2022 8:27:19 CDT by Chiara Ciao TelecombakariMovableInkE[facility] HospitalVo[facility] Xlhvaq83 LEAD [id number] 20:59:5612 LEAD EKG FOR [facility] Test Date: 5761-53-41Sfv Name: DORA JOSEPH Department: 5520Patient ID: [id number] Room: Gender: M Chief Environmental Commitment Officer: [id number]: 1970 Requested By: TANJA Garza Number: [id number] Reading MD: Chiara Calles MeasurementsIntervals [place] Rate: 75 P: 84PR: 153 QRS: 67QRSD: 104 T: 77QT: 344 QTc: 373 Interpretive StatementsSINUS RHYTHMPOSSIBLE RIGHT VENTRI CULAR CONDUCTION DELAY [RSR (QR) IN V1/V2]Electronically Signed On 01-09-2022 8:27:19 CDT by Chiara Ciao [facility]12 LEAD [id number] 20:59:5612 LEAD EKG FOR [facility] Test Date: 1785-69-45Gcq Name: DORA PAEZRY Department: 5520Patient ID: [id number] Room: Gender: M Chief Environmental Commitment Officer: [id number]: 1970 Requested By: TANJA Garza Number: [id number] Reading MD: Chiara Calles MeasurementsIntervals [place] Rate: 75 P: 84PR: 153 QRS: 67QRSD: 104 T: 77QT: 344 QTc: 373 Interpretive StatementsSINUS RHYTHMPOSSIBLE RIGHT VENTRICULAR CONDUCTION DELAY [RSR (QR) IN V1/V2]Electronically Signed On 01-09-2022 8:27:19 CDT by [facility] LEAD [id number] 20:59:5612 LEAD EKG FOR [facility] Test Date: 9098-03-89Dzv Name: DORA JOSEPH Department: 5520Patient ID: [id number] Room: Gender: M Chief Environmental Commitment Officer: [id number]: 1970 Requested By: TANJA Garza Number: [id number] Reading MD: Chiara Calles MeasurementsIntervals [place] Rate: 75 P: 84P R: 153 QRS: 67QRSD: 104 T: 77QT: 344 QTc: 373 Interpretive StatementsSINUS RHYTHMPOSSIBLE RIGHT VENTRICULAR CONDUCTION DELAY [RSR (QR) IN V1/V2]Electronically Signed On 01-09-2022 8:27:19 CDT by [facility] [place] [address] LEAD [id number] 20:59:5612 LEAD EKG FOR [facility] Test Date: 8909-63-48Xhj Name: DORA JOSEPH Department: 5520Patient ID: [id number] Room: Gender: M Chief Environmental Commitment Officer: [id number]: 1970 Requested By: TANJA Garza Number: [id number] Reading MD: Chiara Calles MeasurementsIntervals [place] Rate: 75 P: 84PR: 153 QRS: 67QRSD: 104 T: 77QT: 344 QTc: 373 Interpretive StatementsSINUS RHYTHMPOSSIBLE RIGHT VENTRICULAR CONDUCTION DELAY [RSR (QR) IN V1/V2]Electronically Signed On 01-09-2022 8:27:19 CDT by [facility] W/AUTO [id number] 23:52:00 Test Item Value Reference Range Interpretation [...] = MX#) 0.8 k/mm3 0.1-0.8 N LIVER [id number] 20:04:00 Test Item Value Reference Range Interpretation Comments TOTAL PROTEIN (test code 6.7 GM/DL 5.0-8.0 N Per formed by = PROT) 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 [facility] ed Ctr ALBUMIN (test code = [...] 67 UNITS/L 25-125 N TAWNY) BASIC METABOLIC [id number] 19:54:00 Test Item Value Reference Range Interpretation [...] POCGLU) 81 MG/DL - CT ABD PELVIS W/KWFH2073-22-15 00:00:00 [facility] SHANA LAKEName: HOANG JOSEPH : 1970 Sex: M Name: HOANG JOSEPH FSED : 1970 Age/S: 51 / M [address] [facility] Unit #: [id number] Loc: [place] [address] Phys: Raffaele Levi MD Acct: [id number] Dis Date: Status: PRE ER PHONE #: Exam Date: 09/23/20211999 FAX #: Reason: RUQ PAIN, VOMITING EXAMS: CPT CODE: [id number] CT ABD PELVIS W/CONT 81349 PROCEDURE INFORMATION: Exam: CT Abdomen And Pelvis [...] : 1970 Age/S: 51 / M [address] [facility] Unit #: [id number] Loc: [place] [address] Phys: Raffaele Levi MD Acct: [id number] Dis Date:Status: PRE ER PHONE #: Exam Date: 09/23/20211999 FAX #: Reason: RUQ PAIN, VOMITING EXAMS: CPT CODE: [id number] CT ABD PELVIS W/CONT 01758 <Continued> abdominal small bowel loops may relate to i ncomplete luminal distention or enteritis. 2. 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 No obstruction. at 2048 Reported and signed by: Juan Juarez M.D. CC: Raffaele Levi MD Technologist:Stephanie Albrecht, RT(R)(CT) CTDI: DLP: Trnscb Date/Time: 09/23/2021 (2048) t.[email or web address] Orig Print D/T: S: 09/23/2021 (2049) PAGE 2 Signed ReportCOMP. METABOLIC PANEL (04824)2021-09-14 03:57:44 Test Item Value Reference Range Interpretation Comments NA (test code = 132 mmol/L 135-145 L 2945443617) K (test code = 4.1 mmol/L 3.5-5.0 4686958757) CL (test code = 101 mmol/L 98-108 2612426926) CO2 TOTAL (test code = 23 mmol/L 23-31 3325716563) AGAP (test code = 2-16 1383794046) BUN (test code = 23 mg/dL 7-23 9386436528) GLUCOSE (test code = 97 mg/dL 70-110 7956791913) CREATININE (test code = 1.48 mg/dL 0.60-1.25 H 7531843427) TOTAL BILI (test code = 0.3 mg/dL 0.1-1.3 9569495500) CALCIUM (test code = 9.0 mg/dL 8.6-10.6 2998691473) T PROTEIN (test code = 6.2 g/dL 6.3-8.2 L 2802158120) ALBUMIN (test code = 3.7 g/dL 3.5-5.0 2892375321) ALK PHOS (test code = 82 U/L 34-122 5143827608) ALTv (test code = 21 U/L 5-50 2-6) AST(SGOT) (test code = 20 U/L 13-40 9204933295) eGFR (test code = mL/min/1.73m2 0710577134) GILBERTO (test code = GILBERTO) Association of [...] tests). Lab Interpretation Abnormal (test code = 41380-8) [facility] WITH [id number] 03:52:42 Test Item Value Reference Range Interpretation [...] RDW-SD (test code = 47.2 fL 38.5-51.6 79311-8) RDW-CV (test code = 14.0 % 12.1-15.4 788-0) PLT (test code = See_Comment H [Automated 777-3) message] The sy stem which generated this result transmitted reference range : 150 - 328 10*3/ ?L. The reference r meredith was not used to interpret this result as normal/abnormal . MPV (test code = 9.2 fL 9.8-13.0 L 74350-5) NRBC/100 WBC (test See_Comment [Automat ed code = 0797187371) message] The system which generated this result transmitted reference range : 0.0 - 10.0 /100 WBCs. The refer ence range was not u sed to interpret th is result as normal/abnormal . NRBC x10^3 (test code <0.01 See_Comment [Auto mated = 0952259917) message] The s ystem which generated this result transmitted reference range : 10*3/?L. The reference range was not used to interpret this result as normal/abnormal . GRAN MAT (NEUT) % 61.3 % (test code = 770-8) IMM GRAN % (test code 0.20 % = 6363364545) LYMPH % (test code = 23.1 % 736-9) MONO % (test code = 13.7 % 5905-5) EOS % (test code = 1.5 % 713-8) BASO % (test code = 0.2 % 706-2) GRAN MAT x10^3(ANC) 2.78 10*3/uL 1.99-6.95 (test code = 9649422556) IMM GRAN x10^3 (test <0.03 0.00-0.06 code = 6306204260) LYMPH x10^3 (test code 1.05 10*3/uL 1.09-3.23 L = 731-0) MONO x10^3 (test code 0.62 10*3/uL 0.36-1.02 = 742-7) EOS x10^3 (test code = 0.07 10*3/uL 0.06-0.53 711-2) BASO x10^3 (test code <0.03 0.01-0.09 = 704-7) Lab Interpretation Abnormal (test code = 88107-5) [facility] [id number] 13:36:34 Test Item Value Reference Interpretation Comments Range TROPONIN I (test 0.001 ng/mL See_Comment [Automated code = 7044799804) message] The system which generated this result [...] biotin. Lab Interpretation Normal (test code = 63375-8) [id number] 13:36:34 Test Item Value Reference Range Interpretation Comments NT-proBNP (test code 79 pg/mL See_Comment [Autom ated = 9267814721) message] The system which generated this result transmitted reference range : <=125. The reference range was not used to interpret this result as normal/abnormal . GILBERTO (test code = GILBERTO) Biotin has been reported to cause a negative bias, interpret results relative to patient's use of biotin. Lab Interpretation Normal (test code = 30427-9) [facility] (NA, K, CL, CO2, GLUCOSE, BUN, CREATININE, CA)2021-09-12 13:24:32 Test Item Value Reference Range Interpretation Comments NA (test code = 134 mmol/L 135-145 L 7714433835) K (test code = 4.3 mmol/L 3.5-5.0 3222226917) CL (test code = 102 mmol/L 98-108 6692954756) CO2 TOTAL (test code = 23 mmol/L 23-31 6389640807) AGAP (test code = 2-16 0689326519) BUN (test code = 22 mg/dL 7-23 6204484154) GLUCOSE (test code = 89 mg/dL 70-110 3020249260) CREATININE (test code = 1.69 mg/dL 0.60-1.25 H 9213177626) CALCIUM (test code = 9.0 mg/dL 8.6-10.6 2562658755) eGFR (test code = mL/min/1.73m2 5043850810) GILBERTO (test code = GILBERTO) Association of [...] tests). Lab Interpretation Abnormal (test code = 06254-4) [facility] WITH [id number] 13:09:28 Test Item Value Reference Range Interpretation Comments WBC (test code = See_Comment [Automated 3985-2) message] The sy stem which generated this result transmitted reference range : 4.20 - 10.70 10*3/?L. The reference range was not used to interpret this result as normal/abnormal . RBC (test code = See_Comment L [Automated 009-8) message] The sy stem which generated this [...] RDW-SD (test code = 45.3 fL 38.5-51.6 67662-6) RDW-CV (test code = 13.9 % 12.1-15.4 788-0) PLT (test code = See_Comment H [Automated 777-3) message] The sy stem which generated this result transmitted reference range : 150 - 328 10*3/ ?L. The reference r meredith was not used to interpret this result as normal/abnormal . MPV (test code = 9.0 fL 9.8-13.0 L 94690-5) NRBC/100 WBC (test See_Comment [Automat ed code = 5447595220) message] The system which generated this result transmitted reference range : 0.0 - 10.0 /100 WBCs. The refer ence range was not u sed to interpret th is result as normal/abnormal . NRBC x10^3 (test code <0.01 See_Comment [Auto mated = 0701020586) message] The s ystem which generated this result transmitted reference range : 10*3/?L. The reference range was not used to interpret this result as normal/abnormal . GRAN MAT (NEUT) % 69.7 % (test code = 770-8) IMM GRAN % (test code 0.40 % = 4512872167) LYMPH % (test code = 16.9 % 736-9) MONO % (test code = 11.9 % 5905-5) EOS % (test code = 0.7 % 713-8) BASO % (test code = 0.4 % 706-2) GRAN MAT x10^3(ANC) 3.88 10*3/uL 1.99-6.95 (test code = 8917602495) IMM GRAN x10^3 (test <0.03 0.00-0.06 code = 2659267227) LYMPH x10^3 (test code 0.94 10*3/uL 1.09-3.23 L = 731-0) MONO x10^3 (test code 0.66 10*3/uL 0.36-1.02 = 742-7) EOS x10^3 (test code = 0.04 10*3/uL 0.06-0.53 L 711-2) BASO x10^3 (test code <0.03 0.01-0.09 = 704-7) Lab Interpretation Abnormal (test code = 51972-7) [facility] WITH [id number] 05:55:28 Test Item Value Reference Range Interpretation [...] RDW-SD (test code = 45.4 fL 38.5-51.6 64036-2) RDW-CV (test code = 13.8 % 12.1-15.4 788-0) PLT (test code = See_Comment [Automated 777-3) message] The sy stem which generated this result transmitted reference range : 150 - 328 10*3/ ?L. The reference r meredith was not used to interpret this result as normal/abnormal . MPV (test code = 9.2 fL 9.8-13.0 L 58171-1) NRBC/100 WBC (test See_Comment [Automat ed code = 0408290254) message] The system which generated this result transmitted reference range : 0.0 - 10.0 /100 WBCs. The refer ence range was not u sed to interpret th is result as normal/abnormal . NRBC x10^3 (test code <0.01 See_Comment [Auto mated = 4668130300) message] The s ystem which generated this result transmitted reference range : 10*3/?L. The reference range was not used to interpret this result as normal/abnormal . GRAN MAT (NEUT) % 60.6 % (test code = 770-8) IMM GRAN % (test code 0.20 % = 5753378065) LYMPH % (test code = 25.5 % 736-9) MONO % (test code = 10.5 % 5905-5) EOS % (test code = 2.8 % 713-8) BASO % (test code = 0.4 % 706-2) GRAN MAT x10^3(ANC) 3.23 10*3/uL 1.99-6.95 (test code = 0098563833) IMM GRAN x10^3 (test <0.03 0.00-0.06 code = 1615819406) LYMPH x10^3 (test code 1.36 10*3/uL 1.09-3.23 = 731-0) MONO x10^3 (test code 0.56 10*3/uL 0.36-1.02 = 742-7) EOS x10^3 (test code = 0.15 10*3/uL 0.06-0.53 711-2) BASO x10^3 (test code <0.03 0.01-0.09 = 704-7) Lab Interpretation Abnormal (test code = 50469-9) [facility] 05:48:47 Test Item Value Reference Range Interpretation Comments LIPASE (test code = 1232369272) 116 U/L 0-220 Lab Interpretation (test code = Normal 18960-8) [facility]OLIC PAN[facility] (16399)2021-09-09 05:48:46 Test Item Value Reference Range Interpretation Comments NA (test code = 137 mmol/L 135-145 2945120005) K (test code = 4.0 mmol/L 3.5-5.0 0530511567) CL (test code = 108 mmol/L 98-108 6498573239) CO2 TOTAL (test code = 22 mmol/L 23-31 L 4670068974) AGAP (test code = 2-16 3760304991) BUN (test code = 23 mg/dL 7-23 9616015037) GLUCOSE (test code = 89 mg/dL 70-110 9715037316) CREATININE (test code = 1.28 mg/dL 0.60-1.25 H 5489129611) TOTAL BILI (test code = 0.4 mg/dL 0.1-1.9 8767808427) CALCIUM (test code = 8.9 mg/dL 8.6-10.6 7797783516) T PROTEIN (test code = 6.0 g/dL 6.3-8.2 L 3002361637) ALBUMIN (test code = 3.5 g/dL 3.5-5.0 0760065776) ALK PHOS (test code = 67 U/L 34-122 1613638626) ALTv (test code = 18 U/L 5-50 2-6) AST(SGOT) (test code = 22 U/L 13-40 1576331620) eGFR (test code = mL/min/1.73m2 6832542493) GILBERTO (test code = GILBERTO) Association of [...] tests). Lab Interpretation Abnormal (test code = 18831-5) [facility]. METABOLIC PANEL (22256)2021-09-08 02:29:45 Test Item Value Reference Range Interpretation Comments NA (test code = 138 mmol/L 135-145 4417804237) K (test code = 4.3 mmol/L 3.5-5.0 8619548842) CL (test code = 106 mmol/L 98-108 8034208640) CO2 TOTAL (test code = 27 mmol/L 23-31 3419106242) AGAP (test code = 2-16 9335676084) BUN (test code = 22 mg/dL 7-23 8210063781) GLUCOSE (test code = 90 mg/dL 70-110 8918744806) CREATININE (test code = 1.36 mg/dL 0.60-1.25 H 5518167266) TOTAL BILI (test code = 0.4 mg/dL 0.1-1.0 5962434890) CALCIUM (test code = 9.2 mg/dL 8.6-10.6 2151451211) T PROTEIN (test code = 6.5 g/dL 6.3-8.2 2799449723) ALBUMIN (test code = 3.8 g/dL 3.5-5.0 6175167939) ALK PHOS (test code = 73 U/L 34-122 6570133466) ALTv (test code = 19 U/L 5-50 1742-6) AST(SGOT) (test code = 24 U/L 13-40 7409034865) eGFR (test code = mL/min/1.73m2 0954559259) GILBERTO (test code = GILBERTO) Association of [...] tests). Lab Interpretation Abnormal (test code = 42050-1) [facility] 02:29:45 Test Item Value Reference Range Interpretation Comments LIPASE (test code = 5760220475) 75 U/L 0-220 Lab Interpretation (test code = Normal 50045-6) [facility] WITH [id number] 02:15:21 Test Item Value Reference Range Interpretation Comments WBC (test code = See_Comment [Automated 7560-2) message] The sy stem which generated this result transmitted reference range : 4.20 - 10.70 10*3/?L. The reference range was not used to interpret this result as normal/abnormal . RBC (test code = See_Comment L [Automated 244-7) message] The sy stem which generated this [...] RDW-SD (test code = 45.9 fL 38.5-51.6 55256-7) RDW-CV (test code = 13.6 % 12.1-15.4 788-0) PLT (test code = See_Comment [Automated 777-3) message] The sy stem which generated this result transmitted reference range : 150 - 328 10*3/ ?L. The reference r meredith was not used to interpret this result as normal/abnormal . MPV (test code = 9.4 fL 9.8-13.0 L 19527-1) NRBC/100 WBC (test See_Comment [Automat ed code = 0859003312) message] The system which generated this result transmitted reference range : 0.0 - 10.0 /100 WBCs. The refer ence range was not u sed to interpret th is result as normal/abnormal . NRBC x10^3 (test code <0.01 See_Comment [Auto mated = 5789846272) message] The s ystem which generated this result transmitted reference range : 10*3/?L. The reference range was not used to interpret this result as normal/abnormal . GRAN MAT (NEUT) % 66.0 % (test code = 770-8) IMM GRAN % (test code 0.50 % = 9615959402) LYMPH % (test code = 20.0 % 736-9) MONO % (test code = 9.8 % 5905-5) EOS % (test code = 3.5 % 713-8) BASO % (test code = 0.2 % 706-2) GRAN MAT x10^3(ANC) 3.77 10*3/uL 1.99-6.95 (test code = 2453266635) IMM GRAN x10^3 (test 0.03 10*3/uL 0.00-0.06 code = 3031451155) LYMPH x10^3 (test code 1.14 10*3/uL 1.09-3.23 = 731-0) MONO x10^3 (test code 0.56 10*3/uL 0.36-1.02 = 742-7) EOS x10^3 (test code = 0.20 10*3/uL 0.06-0.53 711-2) BASO x10^3 (test code <0.03 0.01-0.09 = 704-7) Lab Interpretation Abnormal (test code = 62341-9) [facility] Whole [id number] 02:10:44 Test Item Value Reference Range Interpretation Comments LACTIC ACID (test code = 1.35 mmol/L 0.50-2.20 [id number]) Lab Interpretation (test code = Normal 23937-9) [facility] [id number] 15:31:19 Test Item Value Reference Range Interpretation Comments Case Report (test code Surgical Pathology ? ? = [id number]) ?Case: [id number] ? Authorizing Provider: ?Bia Pedro MD ?Collected: ? 09/03/2021 08 ?Ordering Location: ? ? [facility] OR ? Received: ?09/03/2021 0842 ? Department ? Pathologist: ? Shaneka Douglas MD ? Specimen: ? ?ILEUM, Ileostomy ( staple ?end proximal ) ? Final Diagnosis (test p8lfrFSzZBQfv5jbVVJthG code = [id number]) FuZzEwMzNcZnRuYmpcdWMx IHtccnRmMVxlcGljOTYwMV wbirVrOFUoqKNyF5Eqoeac SQbfIJ3kPM0tpZbiqVGhyE VmQREgUfUao6yvb542kRLg m2dhTUVKjkhorEb7aUdlI0 4em2T0MbpwS06gdTZuZSC5 MPZxRDMgeLZvCDPyXPD4WP OcfEPpA2jlZUGmPF9zorxw ZEnbCQwuBVSjhYA3OTVspE AnO0JaGHUtYZozNCUjlsk1 YkNaAg1vhBZwwPvyASkcNB JkXHBsYWluXGZzMjBccGFy IEEuIElMRVVNLCBJTEVPU1 WJIAa2RMDzpmLqISUyQK9r QkVOSUdOIElMRUFMIFRJU1 KTGRKORFGAKQKLR3IWHR2M R93YOBiwPGXVU8nNBxOaGS 1WIULCCtnHZ3SGTXJPCXEI RUxTLCBccGFyICAgICAgIC IGU41TCXYUNK7HXMvUNXln TYiEP0JQM29TFRNnagphXE JcZnMyMiBTcmkgQmhhcmF0 zCbwA7Q4kGSuCSWITgFJNO AakavsESL5n9nrxBXjDAWo fBGfGeOfXSJkOLOcd1nsAN VmbGFuZzEwMzNcZnRuYmpc bHMdCBDhNgPfu4xky084cQ Iqt5gfARYfEpN5lWCoPOQk pGlpxey3rAzbIcJaAEBgr8 lzcyBcZmNoYXJzZXQwIEFy uRKnD172PSAuWVlku2cvh4 AkPAYqpBRmh6W6GFVPHJkg NaKsA208l9jkb5ayfcQreF K7ZOHmWXP3ORgwlxKbjpU2 MUsblHFsSiI3EKkyjfBwUI whrkLxruHkQsv3LTNoV207 IQQ6yOmtz6wvVOI8EOAwUA EjKnvmMn6utLEfH572MJAy JPFWGPSncXa1AVIwgoMdlp NbtLQZt574F394n3qgWKEv aoBgpDsVxcadw2zwC605KR BhcGVydzEyMjQwXHBhcGVy pJX1UFBvGB5kxnkdNCiwAI grDIBbtsM1ZMTedTFrF3Bn MBBtKB3wvyovNED3UUprDD ZaGFM3RuHbUKQjq5Twlci0 DeGeiq7lbe50KOH6h6KbtK bvJMR7HKD2ElFbUp5pzCOd DJCqHW4yJcEqwJFaMYDrdb 88cXjiITpxrrLtqR0tJqAi DCLjjVRsNDKhHV1suRPgNL ZeeT4iymmoASTuAkEekenl NLPosHivraElHs8ewEghRZ W2EPfzX2qpjX7xDvS1PCnn J3sruA0aVYn5ZXeroIV4ZY PszA5uCJ3rkhuna4kkJWbq KSrnTZVlifQ8acT8FVXtmL WnX0TunQ9xGVAqAJ4qkdmo l8swAWH2LXtxVEUiFGA3Po ZmLFVjy2Orprf5OkFcs6Iz pJOkLZqdM65st659XFRtis NcR5kosLLduwwsxOJygtbn TVifalK2VORhXGZyEIjtVZ YxXGZzMjBcbGFuZzEwMzNc aGljaFxmMVxkYmNoXGYxXG thJ1sqEfNaP7EnLMFfBwYw tJJhKLmwkVK7AXQoNBHoe1 8kjKs0OHIsamzsq5XzMVJt fYRvpOZlzY7zbiYtq6jnJF SqVFPbSLUxL6AeHOX5fDZu LOFpaYSimIJ2ZI4pqlIkYJ 1hZGUgYnkgcmVzaWRlbnRz IVPdVBdmp1upCV7oXVZweB ywnG6tcRG3SCRmb1hcrTZw nPLlm9hwg8WbywRqIYicGN ZdFTdvENCzKGLxKY3hRESq jOYzoeHil3U4TgrvrEOybw ohCqthhmC6BYyqaghxQKIn ICfcZ4ttZsIePPLjyMinAj wnc8LfVHYxIHAyKwofbNBz fX0= Clinical Information 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] 9969735417) Gross Description (test j0fidDLhDNDonKXWLAHtHp code = 8251751502) lqikGqHIPsvWMiY9Zdhtgf VAlaLU6gYP7flCcqcNPzcE CwSA1NEWTsBlKlCAFgtNJx tyYqXdVrRWRpgEOopIK3CY WgQE7wwjjaMDcuDPbkKDWf oyX1JFUigXWcT7CyPYRmYN 2aglrnJNN1GLqliL6cpjHT MopqEm0mtYMwqPlpHlKbVh NoYXJzZXQwXGZuaWwgQXJp LPy5nZ4QHpsgUWO2WRYTFu frMGTqKT7Ib6jkFAHsxKYy AIA5NNdrcVAdVVGsQBJcOC o8KRDsNDtftUTxNY6sxRgl NetllRepx4RucNWcPSkxXC DnYZChPHvmRZPfMD2UCeHq IQvJWLTvSDTgCmS5KXy4RU DARkLhGtBtLUv0Vsw9IoHk WBi4DNp8PDcARhGbFPF8Nk XdHgA7BNO9CDHxNFcuxQQb IFxcZiBBcmlhbCBcXGZzID FlUCmgYjhwVBzbM45ikQzm wH1kKsThBAOIRhDVSWBHJJ 0zyNQpNQ3LMLGaGUcuZMIc sXDNOKP5WK6oCEYMRtwzwS CuHOQbyUkeXMothJ9aDD9X AFy1wrSmCQUgEzTjX6XgM0 jjXN0fNDNupbSrJOBkiDHu ZCBmcmVzaCBhbmQgbGFiZW znSXK1xYWcVAPyGNIvSQDq US30Q4KzgsWaAJyhUDsjge UrAyXtRYMmoVH2zRuipTsm j5J4k917YLYtqNUttRPrVD 1rUSQli5bypXKqYsSoyiYx U85fq7hjeGKym3HyOHM5DG 8olRjtbtLbQCsuHF69QR5j NPEuBWzbBDFyp2KcMTl4Ch ZdL89pqP3tbHDqC0YwKYX7 IDQuMiBjbSBpbiBkaWFtZX Xtktrsc0j9xZTvANB0h85f TYhwWxscdSDmZdGuE15pOJ shieYjUEarfWcvANL4fShk SZWywRLhEmK4IC7kRsPet8 5ut8esdgYsakJmJIDfiYFe yTLbDIUyu9PjbQkurjAvJL ZiyS8eNCJrPJIknBKpuZ1t biBpcyBvcGVuIHRvIHJldm FzbUV9AN2arItjzkMkda8j h1n7LHXmmwZcBFXpYYZtIB KmlGVtg2VnDPSKDPNjVTDk guSejMv8SORpKCX3oU8mbx SfkkVhs2XehTh9gRGbQQvw GQBxHQHxnp82V9rmXKNsUY BhciANClxwYXIgDQpBMTog mTJctLstDHubgHScN7kfKL McOXZdMDCmheQsyGn6FQDz tTGzTD3BHXP0RTL5b73cPZ UzMPPyGRYjcuBpaQt0EWcc YOByJYlDDahvUh78QXmvg3 YgzViobyIxvaSvNQ32YBKg lhSefTFgSV3UGERaxyOEYg T1nYyrCUi1LQQ8EJztOOX8 mS4ee5acx8QvTgVYc7Fqx7 DaitDkf8G4KPCnjIubvZ1k KO7wbhdwVLBfAVE3r4WbNA PYBYpnlLsgkK4cMXTpJ54o k6UCz8GqYSSyZZqqy9nhfA qwj2GwvNDxSLeeJFAhzMGy YYixrA0kKjEvn7sfsCh8KF jbmxW7NBQrwo8QMcdgwC8n LbFtb4duaSa0QZUNJnoihf J6u1zmlYzsz4FvsQRuBU4M Cn0= Disclaimer (test code = n2lwnQCdHDIdl8ylDQUlqZ [id number]) FuZzEwMzNcZnRuYmpcdWMx YCrgkzArKZtyf0HmQ5DoAo AwMFxhbnNpXGRlZmxhbmcx FJEfPAE7kcGoAEHsPFtqDC QpCFrmYy9xpTBhhGulWdIl FUUey1mielGMZIdjKpGmE2 02ZSWkYNrmh1dov4FcOUHd xWNfp6E5ZUPIxzfwpWe7jW tmJ59et9O8LxlbA5nmATGy JRIiX5SgZA7kCYIrNhz1BB K0XBQ2WTCaDVKnL2DnFK0t XGNsoBNjTHl2t5talYdwXY HdBWO5r7gxEYhkkgVoXW1q po7yoEv6o3tucmYkOFJjJE VnaVHGXXCgA1LapJwjYj6s aTm7rWrgEefsVHT8Npq2OJ 0hng69pfm8tWjnJNRdbxfw UnJ1OAovCNDlieknNDg1MR toBHMsxBV6LTIhuPBhQ8Ur BYIqDE4whur8OOP4FPknBC EbNbL7AWRclOTeRYIfaHtn AIqps695FPK4UvBqVB2kE4 Chb4H0nU5njFCbEIIuhIVk LqFeJAHcnx1fkVLwVZpeh8 YoPRL7uyX7aEZdlWRcAQQi UT12Ihqiy6JyTvbgn1SvN9 0rtWV6SCrak8rlUY9eLeL6 keGvQMgdg7mniA6oQzU5VK bxDC2tII7yFXNuvR1fewdm XHBnYnJkcmhlYWRccGdicm XlSf6yrMumVPG7SLyqP8xc uX6pJtO2SVasY1brbR4zHC r2SFcskEC4OGFbcG4cGX0z edsvn5uwQHulAIdzABMtme O0xbD0FQLpkLHrG6NtiE9p BIDkXT4nopvit6bbEQE4GU ewTIMjYZT8KfZkBPVdq9Zq kyp1WgCwe6FqzYLnPPtnU6 6ua790LTCohyHaJ6ibuTIc nsfmmLFsdmsbRTikhgK0JP NrxmBfy9ZvJXOqMZI1HAld IWziuUUxMZVmsVdzg8zyT8 RscGFyXHBsYWluXGYxXGZz MjBcbGFuZzEwMzNcaGljaF mdOFlhLaRaSAQrFAhnJ9sj RpCiI5VcDKIeLiUhtSZiH1 ggVGhpcyByZXBvcnQgbWF5 JKpkE0b6YPOfevJbcWj7fm NqMqBjFGCoSZD4WZsvgBPf QHRjv4KmkgagjHQhKf4iyN IuQYPnqX6wTMLrGUAgCWss WD0jzYi6UTYUmAGphLAeJy LFVBAnBD59qzSbQUVKwjhw c3O0VBfqXIMwi2GmdXBxR7 fif2RjTTSrr53rQA4om3Z8 h5nvOWI8FB4qf0LtDXNksV YqyXJbRZWbs8Bdxsfio2Mc JXLvjqNmi8SlFUQafeRodU FvCLJrvdSfff0yyjBcVXAu GRTcZ6HeacgcxGdiglRtRT Gduk2rgqNuQBQ2BVKHWBUs YQLbs3TqkD6mzVGKZYU9kE Swvc4vudMAqZRsUMYzus26 KOFtIB5lF7oxQCWvOSNzrj YfwPPrr6YqILElsDH2vMNe WD8UOuBIl48pASNaUKJRcx FmQFEfuMjnuIP1pkQ5sQ1g IChGREEpLlx+IFRoZSBGRE KnCN0yokTcm6MettVkxMhe DFKpwRYlp8QgxYSsf4CtkF bdm0ZksSYtfATxMX2sRZIa clxwYXIgVVRNQiBMYWJvcm L0l0OiVDSaOYAtJDU3lTht zxd1ISOhwA1eTIWqT0kuno jlGXtnWVIni9WibY8kdUNI iRCwu2QuaOCibENEwDXbDP 8qosFkTCbDYFcTMFV4iyDx UDQag1LpZRnsA2kiO45uqL ohbDr9bAJ4STB6gO8hZhw+ IFxwYXJccGFyIEFwcHJvcH PrMHMyhAqwlwExD3FhthRf mU0eiRThklRjKU8rWI3eS5 J9lLVzZULcguGax7vpMBdj dmUgYmVlbiByZXZpZXdlZC Osb5WiWGcfYRZ5TFirhkUo bmNsdWRpbmcgSCZFLCBTcG AfhQMaWKB5EJuvktUrbmHd NJ4tqG4zgIkctY0htBPpdG X1knjyPTJcYNJwhKctTMRi HV3hzEPaIWSdliHKvLnlgF DcfA9xD4CpBRNiQEAxcp9f RBCdtW1dLJvcv2FjxyczPN FiIAVvBBFnmqLjac2fHDBi cYLDEF1UFPipwMLno4Omqa OgG4jNBSD4IDXeGhAtTuds IYCtwZOyiZDaLCOzuj75XK SsaS7iyEhcHWXzgH3qyH3d gFavsK2gWbEjQoSsFLuxGZ 4tLGUqX8dfsXSrGZFxNMFj M3ddGxIcuQ0zwCunBYthRt WmEbYsKDfgTOB9yC== Embedded Images (test code = 4552265386) [facility] [id number] 09:01:06 Test Item Value Reference Range Interpretation Comments Blood Culture-Aerobic No organisms No growth Previo us (test code = 13997-0) isolated prelim inary verified result was Culture In Progress on 08/31/2021 at 060 1 CSTPrevious preliminary verified result was No growth a t 24 hours on 09/01/2021 at 030 1 CSTPrevious preliminary verified result was No growth a t 48 hours on 09/02/2021 at 03 01 CSTPrevious preliminary verified result was No growth a t 72 hours on 09/03/2021 at 03 01 REGULATORY 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 METABOLIC PANEL (NA, K, CL, CO2, GLUCOSE, BUN, CREATININE, CA)2021-09-04 13:22:54 Test Item Value Reference Range Interpretation Comments NA (test code = 132 mmol/L 135-145 L 0164035858) K (test code = 4.3 mmol/L 3.5-5.0 9084161758) CL (test code = 104 mmol/L 98-108 1107913347) CO2 TOTAL (test code = 23 mmol/L 23-31 2174789441) AGAP (test code = 2-16 5003502477) BUN (test code = 15 mg/dL 7-23 2241165773) GLUCOSE (test code = 96 mg/dL 70-110 5397011597) CREATININE (test code = 1.42 mg/dL 0.60-1.25 H 7062490906) CALCIUM (test code = 8.7 mg/dL 8.6-10.6 8963906744) eGFR (test code = mL/min/1.73m2 2819648191) GILBERTO (test code = GILBERTO) Association of [...] tests). Lab Interpretation Abnormal (test code = 18562-2) [facility] METABOLIC PANEL (NA, K, CL, CO2, GLUCOSE, BUN, CREATININE, CA)2021-09-04 13:22:54 Test Item Value Reference Range Interpretation Comments NA (test code = 132 mmol/L 135-145 L 4620601037) K (test code = 4.3 mmol/L 3.5-5.0 4563773687) CL (test code = 104 mmol/L 98-108 7087900839) CO2 TOTAL (test code = 23 mmol/L 23-31 4920335731) AGAP (test code = 2-16 4815874370) BUN (test code = 15 mg/dL 7-23 8930049513) GLUCOSE (test code = 96 mg/dL 70-110 9954759361) CREATININE (test code = 1.42 mg/dL 0.60-1.25 H 7613704593) CALCIUM (test code = 8.7 mg/dL 8.6-10.6 3060546959) eGFR (test code = mL/min/1.73m2 2925349080) GILBERTO (test code = GILBERTO) Association of [...] tests). Lab Interpretation Abnormal (test code = 41151-3) [facility] CULTURE [id number] 17:16:36 Test Item Value Reference Range Interpretation Comments Blood Culture Coagulase negative Addition al Workup (test Staphylococcus work-up perfo rmed code = 600-7) only per reque st. Culture plate(s ) will be saved until this date : 09/08/21 Gram stain Isolated from aerobic (test code = bottle Gram positive 664-3) cocci in clusters [facility] CULTURE [id number] 17:16:36 Test Item Value Reference Range Interpretation Comments Blood Culture Coagulase negative Addition al Workup (test Staphylococcus work-up perfo rmed code = 600-7) only per reque st. Culture plate(s ) will be saved until this date : 09/08/21 Gram stain Isolated from aerobic (test code = bottle Gram positive 664-3) cocci in clusters [facility] Culture - Peripheral Vein # 17:16:26 Test Item Value Reference Range Interpretation Comments Blood Culture-Aerobic Culture positive. No growth AA P revious (test code = 85349-5) See Blood Culture p reliminary Workup for verified result additional was Culture In information. Progress on 08/31/2021 at 060 1 REGULATORY AFFAIRS ANALYST Blood No organisms No growth Previous Culture-Anaerobic isolated preliminar y (test code = 27907-5) verifi ed result was Culture In Progress on 09/01/2021 at 012 7 REGULATORY AFFAIRS ANALYST Lab Interpretation Abnormal (test code = 50791-3) [facility] Culture - Peripheral Vein # 17:16:26 Test Item Value Reference Range Interpretation Comments Blood Culture-Aerobic Culture positive. No growth AA P revious (test code = 98624-5) See Blood Culture p reliminary Workup for verified result additional was Culture In information. Progress on 08/31/2021 at 060 1 REGULATORY AFFAIRS ANALYST Blood No organisms No growth Previous Culture-Anaerobic isolated preliminar y (test code = 68356-1) verifi ed result was Culture In Progress on 09/01/2021 at 012 7 REGULATORY AFFAIRS ANALYST Lab Interpretation Abnormal (test code = 41447-0) [facility] METABOLIC PANEL (NA, K, CL, CO2, GLUCOSE, BUN, CREATININE, CA)2021-09-03 12:16:04 Test Item Value Reference Range Interpretation Comments NA (test code = 130 mmol/L 135-145 L 6434553662) K (test code = 4.1 mmol/L 3.5-5.0 0088279826) CL (test code = 103 mmol/L 98-108 0941719383) CO2 TOTAL (test code = 21 mmol/L 23-31 L 1825947525) AGAP (test code = 2-16 7591531944) BUN (test code = 14 mg/dL 7-23 8251747936) GLUCOSE (test code = 90 mg/dL 70-110 1675655045) CREATININE (test code = 1.28 mg/dL 0.60-1.25 H 4476292509) CALCIUM (test code = 8.8 mg/dL 8.6-10.6 2579656518) eGFR (test code = mL/min/1.73m2 5482962186) GILBERTO (test code = GILBERTO) Association of [...] tests). Lab Interpretation Abnormal (test code = 99154-0) [facility] METABOLIC PANEL (NA, K, CL, CO2, GLUCOSE, BUN, CREATININE, CA)2021-09-03 12:16:04 Test Item Value Reference Range Interpretation Comments NA (test code = 130 mmol/L 135-145 L 8295742456) K (test code = 4.1 mmol/L 3.5-5.0 4555466946) CL (test code = 103 mmol/L 98-108 3826008783) CO2 TOTAL (test code = 21 mmol/L 23-31 L 4283098583) AGAP (test code = 2-16 4873198484) BUN (test code = 14 mg/dL 7-23 8799846791) GLUCOSE (test code = 90 mg/dL 70-110 3590650478) CREATININE (test code = 1.28 mg/dL 0.60-1.25 H 3164360539) CALCIUM (test code = 8.8 mg/dL 8.6-10.6 5069630779) eGFR (test code = mL/min/1.73m2 5844107449) GILBERTO (test code = GILBERTO) Association of [...] tests). Lab Interpretation Abnormal (test code = 23472-6) [facility] WITHOUT [id number] 11:53:39 Test Item Value Reference Range Interpretation Comments WBC (test code = 6690-2) See_Comment [A utomated message] The system [employer] generated this result transmit dain reference range : 4.20 - 10.70 10*3/?L. The reference range was not used to interpret this result as normal/abnormal . RBC (test code = 789-8) See_Comment L [Au tomated message] The system [employer] generated this result transmit dain reference range [...] 777-3) See_Comment [Au tomated message] The system [employer] generated this result transmit dain reference range : 150 - 328 10*3/?L. The reference range was not used to interpret this result as normal/abnormal . MPV (test code = 10.1 fL 9.8-13.0 79706-0) RDW-CV (test code = 13.5 % 12.1-15.4 788-0) RDW-SD (test code = 44.6 fL 38.5-51.6 25824-9) NRBC x10^3 (test code = <0.01 See_Comment [Au tomated message] 8908551333) The system [employer] generated this result transmit dain reference range : 10*3/?L. The reference range was not used to interpret this result as normal/abnormal . NRBC/100 WBC (test code See_Comment [Au tomated message] = 0227203368) The system [employer] generated this result transmit dain reference range : 0.0 - 10.0 /100 WBC s. The reference r meredith was not used to interpret this result as normal/abnormal . IPF % (test code = 0566878283) Lab Interpretation (test Abnormal code = 83168-7) [facility] WITHOUT [id number] 11:53:39 Test Item Value Reference Range Interpretation Comments WBC (test code = 6690-2) See_Comment [A utomated message] The system [employer] generated this result transmit dain reference range : 4.20 - 10.70 10*3/?L. The reference range was not used to interpret this result as normal/abnormal . RBC (test code = 789-8) See_Comment L [Au tomated message] The system [employer] generated this result transmit dain reference range [...] 777-3) See_Comment [Au tomated message] The system [employer] generated this result transmit dain reference range : 150 - 328 10*3/?L. The reference range was not used to interpret this result as normal/abnormal . MPV (test code = 10.1 fL 9.8-13.0 51642-4) RDW-CV (test code = 13.5 % 12.1-15.4 788-0) RDW-SD (test code = 44.6 fL 38.5-51.6 14129-8) NRBC x10^3 (test code = <0.01 See_Comment [Au tomated message] 7551870420) The system [employer] h generated this result transmit dain reference range : 10*3/?L. The reference range was not used to interpret this result as normal/abnormal . NRBC/100 WBC (test code See_Comment [Au tomated message] = 9447852161) The system [employer] ch generated this result transmit dain reference range : 0.0 - 10.0 /100 WBC s. The reference r meredith was not used to interpret this result as normal/abnormal . IPF % (test code = 3219215174) Lab Interpretation (test Abnormal code = 81235-9) [facility] METABOLIC PANEL (NA, K, CL, CO2, GLUCOSE, BUN, CREATININE, CA)2021-09-02 12:06:01 Test Item Value Reference Range Interpretation Comments NA (test code = 132 mmol/L 135-145 L 3876786690) K (test code = 4.4 mmol/L 3.5-5.0 7326598574) CL (test code = 106 mmol/L 98-108 7283737444) CO2 TOTAL (test code = 22 mmol/L 23-31 L 7268271269) AGAP (test code = 2-16 8986756908) BUN (test code = 16 mg/dL 7-23 3640605557) GLUCOSE (test code = 83 mg/dL 70-110 4884834226) CREATININE (test code = 1.33 mg/dL 0.60-1.25 H 7851418313) CALCIUM (test code = 8.8 mg/dL 8.6-10.6 3997842161) eGFR (test code = mL/min/1.73m2 7434666391) GILBERTO (test code = GILBERTO) Association of [...] tests). Lab Interpretation Abnormal (test code = 12639-4) [facility] (NA, K, CL, CO2, GLUCOSE, BUN, CREATININE, CA)2021-09-02 12:06:01 Test Item Value Reference Range Interpretation Comments NA (test code = 132 mmol/L 135-145 L 7234769347) K (test code = 4.4 mmol/L 3.5-5.0 8405470005) CL (test code = 106 mmol/L 98-108 2965843046) CO2 TOTAL (test code = 22 mmol/L 23-31 L 2719978395) AGAP (test code = 2-16 3825683291) BUN (test code = 16 mg/dL 7-23 6528048396) GLUCOSE (test code = 83 mg/dL 70-110 8743721447) CREATININE (test code = 1.33 mg/dL 0.60-1.25 H 0181772402) CALCIUM (test code = 8.8 mg/dL 8.6-10.6 8475456374) eGFR (test code = mL/min/1.73m2 9077319301) GILBERTO (test code = GILBERTO) Association of [...] tests). Lab Interpretation Abnormal (test code = 36297-3) [facility] (NA, K, CL, CO2, GLUCOSE, BUN, CREATININE, CA)2021-09-01 21:55:22 Test Item Value Reference Range Interpretation Comments NA (test code = 130 mmol/L 135-145 L 3969158289) K (test code = 4.2 mmol/L 3.5-5.0 1046373667) CL (test code = 103 mmol/L 98-108 2750096520) CO2 TOTAL (test code = 20 mmol/L 23-31 L 1381912058) AGAP (test code = 2-16 3506014179) BUN (test code = 20 mg/dL 7-23 9720716517) GLUCOSE (test code = 106 mg/dL 70-110 2372445151) CREATININE (test code = 1.51 mg/dL 0.60-1.25 H 4607186953) CALCIUM (test code = 8.5 mg/dL 8.6-10.6 L 3526589025) eGFR (test code = mL/min/1.73m2 8672212746) GILBERTO (test code = GILBERTO) Association of [...] tests). Lab Interpretation Abnormal (test code = 32181-1) [facility] METABOLIC PANEL (NA, K, CL, CO2, GLUCOSE, BUN, CREATININE, CA)2021-09-01 21:55:22 Test Item Value Reference Range Interpretation Comments NA (test code = 130 mmol/L 135-145 L 9548099354) K (test code = 4.2 mmol/L 3.5-5.0 3846099598) CL (test code = 103 mmol/L 98-108 0550418303) CO2 TOTAL (test code = 20 mmol/L 23-31 L 2647833497) AGAP (test code = 2-16 1640311680) BUN (test code = 20 mg/dL 7-23 5799977268) GLUCOSE (test code = 106 mg/dL 70-110 2487826284) CREATININE (test code = 1.51 mg/dL 0.60-1.25 H 6522786904) CALCIUM (test code = 8.5 mg/dL 8.6-10.6 L 9346421839) eGFR (test code = mL/min/1.73m2 8579949576) GILBERTO (test code = GILBERTO) Association of [...] tests). Lab Interpretation Abnormal (test code = 30224-7) [facility] [id number] 10:31:32 Test Item Value Reference Range Interpretation Comments Coagulase Negative Positive Negative, See A Staphylococcus (test Comment/Narrative code = 05552-8) GILBERTO (test code = GILBERTO) Coagulase negative [...] contact the Antimicrobial Stewardship Program with questions.Pager: ?[phone] Testing included eleven identification and three resistance marker targets. Lab Interpretation Abnormal (test code = 78063-7) [facility] [id number] 10:31:32 Test Item Value Reference Range Interpretation Comments Coagulase Negative Positive Negative, See A Staphylococcus (test Comment/Narrative code = 29851-2) GILBERTO (test code = GILBERTO) Coagulase negative [...] contact the Antimicrobial Stewardship Program with questions.Pager: ?[phone] Testing included eleven identification and three resistance marker targets. Lab Interpretation Abnormal (test code = 36705-5) [facility] METABOLIC PANEL (NA, K, CL, CO2, GLUCOSE, BUN, CREATININE, CA)2021-09-01 08:38:47 Test Item Value Reference Range Interpretation Comments NA (test code = 130 mmol/L 135-145 L 6564144113) K (test code = 4.0 mmol/L 3.5-5.0 6609725946) CL (test code = 105 mmol/L 98-108 3355334040) CO2 TOTAL (test code = 20 mmol/L 23-31 L 6715374635) AGAP (test code = 2-16 2027164586) BUN (test code = 21 mg/dL 7-23 4558448244) GLUCOSE (test code = 88 mg/dL 70-110 6390704092) CREATININE (test code = 1.31 mg/dL 0.60-1.25 H 5711590674) CALCIUM (test code = 8.5 mg/dL 8.6-10.6 L 4147371112) eGFR (test code = mL/min/1.73m2 6107481944) GILBERTO (test code = GILBERTO) Association of [...] tests). Lab Interpretation Abnormal (test code = 20190-0) [facility] (NA, K, CL, CO2, GLUCOSE, BUN, CREATININE, CA)2021-09-01 08:38:47 Test Item Value Reference Range Interpretation Comments NA (test code = 130 mmol/L 135-145 L 0298004208) K (test code = 4.0 mmol/L 3.5-5.0 4883850200) CL (test code = 105 mmol/L 98-108 0521048268) CO2 TOTAL (test code = 20 mmol/L 23-31 L 9346940556) AGAP (test code = 2-16 2677483291) BUN (test code = 21 mg/dL 7-23 1286073865) GLUCOSE (test code = 88 mg/dL 70-110 1299115873) CREATININE (test code = 1.31 mg/dL 0.60-1.25 H 3229800766) CALCIUM (test code = 8.5 mg/dL 8.6-10.6 L 3135014529) eGFR (test code = mL/min/1.73m2 4814588419) GILBERTO (test code = GILBERTO) Association of [...] tests). Lab Interpretation Abnormal (test code = 43960-4) [facility] WITH [id number] 08:13:43 Test Item Value Reference Range Interpretation [...] RDW-SD (test code = 43.0 fL 38.5-51.6 59169-5) RDW-CV (test code = 13.7 % 12.1-15.4 788-0) PLT (test code = See_Comment [Automated 777-3) message] The sy stem which generated this result transmitted reference range : 150 - 328 10*3/ ?L. The reference r meredith was not used to interpret this result as normal/abnormal . MPV (test code = 9.9 fL 9.8-13.0 00508-8) NRBC/100 WBC (test See_Comment [Automat ed code = 1519813874) message] The system which generated this result transmitted reference range : 0.0 - 10.0 /100 WBCs. The refer ence range was not u sed to interpret th is result as normal/abnormal . NRBC x10^3 (test code <0.01 See_Comment [Auto mated = 4394521098) message] The s ystem which generated this result transmitted reference range : 10*3/?L. The reference range was not used to interpret this result as normal/abnormal . GRAN MAT (NEUT) % 48.2 % (test code = 770-8) IMM GRAN % (test code 0.40 % = 8664270064) LYMPH % (test code = 39.5 % 736-9) MONO % (test code = 9.0 % 5905-5) EOS % (test code = 2.3 % 713-8) BASO % (test code = 0.6 % 706-2) GRAN MAT x10^3(ANC) 2.35 10*3/uL 1.99-6.95 (test code = 9079001235) IMM GRAN x10^3 (test <0.03 0.00-0.06 code = 3985712605) LYMPH x10^3 (test code 1.93 10*3/uL 1.09-3.23 = 731-0) MONO x10^3 (test code 0.44 10*3/uL 0.36-1.02 = 742-7) EOS x10^3 (test code = 0.11 10*3/uL 0.06-0.53 711-2) BASO x10^3 (test code 0.03 10*3/uL 0.01-0.09 = 704-7) Lab Interpretation Abnormal (test code = 44728-9) [facility] WITH [id number] 08:13:43 Test Item Value Reference Range Interpretation [...] RDW-SD (test code = 43.0 fL 38.5-51.6 63387-4) RDW-CV (test code = 13.7 % 12.1-15.4 788-0) PLT (test code = See_Comment [Automated 777-3) message] The sy stem which generated this result transmitted reference range : 150 - 328 10*3/ ?L. The reference r meredith was not used to interpret this result as normal/abnormal . MPV (test code = 9.9 fL 9.8-13.0 05171-3) NRBC/100 WBC (test See_Comment [Automat ed code = 2642500790) message] The system which generated this result transmitted reference range : 0.0 - 10.0 /100 WBCs. The refer ence range was not u sed to interpret th is result as normal/abnormal . NRBC x10^3 (test code <0.01 See_Comment [Auto mated = 6487426556) message] The s ystem which generated this result transmitted reference range : 10*3/?L. The reference range was not used to interpret this result as normal/abnormal . GRAN MAT (NEUT) % 48.2 % (test code = 770-8) IMM GRAN % (test code 0.40 % = 1446521096) LYMPH % (test code = 39.5 % 736-9) MONO % (test code = 9.0 % 5905-5) EOS % (test code = 2.3 % 713-8) BASO % (test code = 0.6 % 706-2) GRAN MAT x10^3(ANC) 2.35 10*3/uL 1.99-6.95 (test code = 8540041353) IMM GRAN x10^3 (test <0.03 0.00-0.06 code = 0757230527) LYMPH x10^3 (test code 1.93 10*3/uL 1.09-3.23 = 731-0) MONO x10^3 (test code 0.44 10*3/uL 0.36-1.02 = 742-7) EOS x10^3 (test code = 0.11 10*3/uL 0.06-0.53 711-2) BASO x10^3 (test code 0.03 10*3/uL 0.01-0.09 = 704-7) Lab Interpretation Abnormal (test code = 12653-5) [facility] [id number] 06:37:20 Test Item Value Reference Range Interpretation Comments MAGNESIUM (test code = 5924777958) 1.9 mg/dL 1.7-2.4 Lab Interpretation (test code = Normal 84094-8) [facility] [id number] 06:37:20 Test Item Value Reference Range Interpretation Comments MAGNESIUM (test code = 1651026126) 1.9 mg/dL 1.7-2.4 Lab Interpretation (test code = Normal 03603-5) [facility] METABOLIC PANEL (NA, K, CL, CO2, GLUCOSE, BUN, CREATININE, CA)2021-09-01 02:46:47 Test Item Value Reference Range Interpretation Comments NA (test code = 132 mmol/L 135-145 L 2323846903) K (test code = 4.0 mmol/L 3.5-5.0 1860119196) CL (test code = 102 mmol/L 98-108 7139606307) CO2 TOTAL (test code = 21 mmol/L 23-31 L 7280023835) AGAP (test code = 2-16 6350746873) BUN (test code = 24 mg/dL 7-23 H 6001797871) GLUCOSE (test code = 95 mg/dL 70-110 3261548363) CREATININE (test code = 1.40 mg/dL 0.60-1.25 H 9514310603) CALCIUM (test code = 8.6 mg/dL 8.6-10.6 6391707038) eGFR (test code = mL/min/1.73m2 5294985812) GILBERTO (test code = GILBERTO) Association of [...] tests). Lab Interpretation Abnormal (test code = 98944-8) [facility] METABOLIC PANEL (NA, K, CL, CO2, GLUCOSE, BUN, CREATININE, CA)2021-09-01 02:46:47 Test Item Value Reference Range Interpretation Comments NA (test code = 132 mmol/L 135-145 L 2265051887) K (test code = 4.0 mmol/L 3.5-5.0 7371264390) CL (test code = 102 mmol/L 98-108 2745109394) CO2 TOTAL (test code = 21 mmol/L 23-31 L 3399838931) AGAP (test code = 2-16 9009393341) BUN (test code = 24 mg/dL 7-23 H 5954859369) GLUCOSE (test code = 95 mg/dL 70-110 9739657466) CREATININE (test code = 1.40 mg/dL 0.60-1.25 H 0566395703) CALCIUM (test code = 8.6 mg/dL 8.6-10.6 1135205647) eGFR (test code = mL/min/1.73m2 5818979903) GILBERTO (test code = GILBERTO) Association of [...] tests). Lab Interpretation Abnormal (test code = 39662-2) [facility] [id number] 12:49:48 Test Item Value Reference Range Interpretation Comments LACTIC ACID (test code = 2.02 mmol/L 0.50-2.20 QUE S 1531658326) Lab Interpretation (test code = Normal 24602-1) [facility] [id number] 12:49:48 Test Item Value Reference Range Interpretation Comments LACTIC ACID (test code = 2.02 mmol/L 0.50-2.20 QUE S 4928315303) Lab Interpretation (test code = Normal 66076-7) [facility] METABOLIC PANEL (NA, K, CL, CO2, GLUCOSE, BUN, CREATININE, CA)2021-08-31 12:29:06 Test Item Value Reference Range Interpretation Comments NA (test code = 129 mmol/L 135-145 L 1890038195) K (test code = 3.6 mmol/L 3.5-5.0 3482376655) CL (test code = 101 mmol/L 98-108 4196390300) CO2 TOTAL (test code = 18 mmol/L 23-31 L 0563072129) AGAP (test code = 2-16 9825276762) BUN (test code = 35 mg/dL 7-23 H 0617417982) GLUCOSE (test code = 97 mg/dL 70-110 6272239219) CREATININE (test code = 1.58 mg/dL 0.60-1.25 H 4894188937) CALCIUM (test code = 8.3 mg/dL 8.6-10.6 L 5381963304) eGFR (test code = mL/min/1.73m2 1338034973) GILBERTO (test code = GILBERTO) Association of [...] tests). Lab Interpretation Abnormal (test code = 52884-1) [facility] METABOLIC PANEL (NA, K, CL, CO2, GLUCOSE, BUN, CREATININE, CA)2021-08-31 12:29:06 Test Item Value Reference Range Interpretation Comments NA (test code = 129 mmol/L 135-145 L 1077087773) K (test code = 3.6 mmol/L 3.5-5.0 5149186915) CL (test code = 101 mmol/L 98-108 7740981972) CO2 TOTAL (test code = 18 mmol/L 23-31 L 3134937262) AGAP (test code = 2-16 0391833162) BUN (test code = 35 mg/dL 7-23 H 8725058495) GLUCOSE (test code = 97 mg/dL 70-110 1891035597) CREATININE (test code = 1.58 mg/dL 0.60-1.25 H 9065987797) CALCIUM (test code = 8.3 mg/dL 8.6-10.6 L 7214693060) eGFR (test code = mL/min/1.73m2 1430379959) GILBERTO (test code = GILBERTO) Association of [...] tests). Lab Interpretation Abnormal (test code = 64157-2) [facility] [id number] 07:42:44 Test Item Value Reference Range Interpretation Comments TSH (test code = See_Comment [Automated message] 8474512943) The system [employer] generated this result transmitted ref erence range: 0.45 - 4 .70 mIU/L. The refe rence range was not u sed to interpret this result as normal/abnor mal. Lab Interpretation (test Normal code = 52313-9) [facility] [id number] 07:42:44 Test Item Value Reference Range Interpretation Comments TSH (test code = See_Comment [Automated message] 7647389175) The system [employer] generated this result transmitted ref erence range: 0.45 - 4 .70 mIU/L. The refe rence range was not u sed to interpret this result as normal/abnor mal. Lab Interpretation (test Normal code = 62355-7) [facility] (NA, K, CL, CO2, GLUCOSE, BUN, CREATININE, CA)2021-08-31 07:40:43 Test Item Value Reference Range Interpretation Comments NA (test code = 129 mmol/L 135-145 L 5089669013) K (test code = 3.8 mmol/L 3.5-5.0 Slight 8352338047) hemolysis CL (test code = 102 mmol/L 98-108 5716147242) CO2 TOTAL (test code 18 mmol/L 23-31 L = 4072243140) AGAP (test code = 2-16 5372623114) BUN (test code = 46 mg/dL 7-23 H Slight 1749379667) hemolysis GLUCOSE (test code = 100 mg/dL 70-110 6371051718) CREATININE (test code 1.72 mg/dL 0.60-1.25 H = 6349691763) CALCIUM (test code = 8.5 mg/dL 8.6-10.6 L 9191967028) eGFR (test code = mL/min/1.73m2 7412787466) GILBERTO (test code = GILBERTO) Association of [...] tests). Lab Interpretation Abnormal (test code = 06723-8) [facility] METABOLIC PANEL (NA, K, CL, CO2, GLUCOSE, BUN, CREATININE, CA)2021-08-31 07:40:43 Test Item Value Reference Range Interpretation Comments NA (test code = 129 mmol/L 135-145 L 9766945071) K (test code = 3.8 mmol/L 3.5-5.0 Slight 3011966640) hemolysis CL (test code = 102 mmol/L 98-108 7383010985) CO2 TOTAL (test code 18 mmol/L 23-31 L = 7019779917) AGAP (test code = 2-16 0732842498) BUN (test code = 46 mg/dL 7-23 H Slight 2047751325) hemolysis GLUCOSE (test code = 100 mg/dL 70-110 4025858108) CREATININE (test code 1.72 mg/dL 0.60-1.25 H = 6946509689) CALCIUM (test code = 8.5 mg/dL 8.6-10.6 L 9591272882) eGFR (test code = mL/min/1.73m2 3211937258) GILBERTO (test code = GILBERTO) Association of [...] tests). Lab Interpretation Abnormal (test code = 30028-8) [facility] [id number] 07:08:01 Test Item Value Reference Range Interpretation Comments LACTIC ACID (test code = 1.96 mmol/L 0.50-2.20 QUE S 4885136817) Lab Interpretation (test code = Normal 02667-0) [facility] [id number] 07:08:01 Test Item Value Reference Range Interpretation Comments LACTIC ACID (test code = 1.96 mmol/L 0.50-2.20 QUE S 5481660543) Lab Interpretation (test code = Normal 08667-5) [facility] HospitalOSMOL[facility]ITY, SERUM OR [id number] 06:33:43 Test Item Value Reference Range Interpretation Comments OSMOLALITY (test code = See_Comment [Au tomated message] 7481576891) The system [employer] generated this result transmitted ref erence range: 278 - 30 5 mOsm/kg. The re ference range was not u sed to interpret this result as normal/abnor mal. Lab Interpretation (test Normal code = 42041-9) [facility] HospitalOSMOLALITY, SERUM OR [id number] 06:33:43 Test Item Value Reference Range Interpretation Comments OSMOLALITY (test code = See_Comment [Au tomated message] 6548034333) The system [employer] generated this result transmitted ref erence range: 278 - 30 5 mOsm/kg. The re ference range was not u sed to interpret this result as normal/abnor mal. Lab Interpretation (test Normal code = 13642-0) [facility] HospitalTROP[facility]IN [id number] 04:28:44 Test Item Value Reference Interpretation Comments Range TROPONIN I (test 0.003 ng/mL See_Comment [Automated code = 4563153663) message] The system which generated this result [...] biotin. Lab Interpretation Normal (test code = 87242-8) [facility]TR[facility] [id number] 04:28:44 Test Item Value Reference Interpretation Comments Range TROPONIN I (test 0.003 ng/mL See_Comment [Automated code = 0756935049) message] The system which generated this result [...] biotin. Lab Interpretation Normal (test code = 38978-5) [facility] (NA, K, CL, CO2, GLUCOSE, BUN, CREATININE, CA)2021-08-31 04:07:42 Test Item Value Reference Range Interpretation Comments NA (test code = 125 mmol/L 135-145 L 2178193228) K (test code = 4.1 mmol/L 3.5-5.0 Slight 1274711569) hemolysis CL (test code = 100 mmol/L 98-108 8704868162) CO2 TOTAL (test code 17 mmol/L 23-31 L = 7294111801) AGAP (test code = 2-16 3560756528) BUN (test code = 52 mg/dL 7-23 H Slight 7212721131) hemolysis GLUCOSE (test code = 94 mg/dL 70-110 3166189594) CREATININE (test code 1.77 mg/dL 0.60-1.25 H = 7808335974) CALCIUM (test code = 8.2 mg/dL 8.6-10.6 L 1218002993) eGFR (test code = mL/min/1.73m2 2074620855) GILBERTO (test code = GILBERTO) Association of [...] tests). Lab Interpretation Abnormal (test code = 70318-0) [facility] METABOLIC PANEL (NA, K, CL, CO2, GLUCOSE, BUN, CREATININE, CA)2021-08-31 04:07:42 Test Item Value Reference Range Interpretation Comments NA (test code = 125 mmol/L 135-145 L 1608103908) K (test code = 4.1 mmol/L 3.5-5.0 Slight 0123583647) hemolysis CL (test code = 100 mmol/L 98-108 9865172507) CO2 TOTAL (test code 17 mmol/L 23-31 L = 6860268049) AGAP (test code = 2-16 6018537967) BUN (test code = 52 mg/dL 7-23 H Slight 2875842899) hemolysis GLUCOSE (test code = 94 mg/dL 70-110 1441110578) CREATININE (test code 1.77 mg/dL 0.60-1.25 H = 5113631863) CALCIUM (test code = 8.2 mg/dL 8.6-10.6 L 1089781580) eGFR (test code = mL/min/1.73m2 1843507473) GILBERTO (test code = GILBERTO) Association of [...] tests). Lab Interpretation Abnormal (test code = 00582-6) [facility] [id number] 00:22:59 Test Item Value Reference Interpretation Comments Range TROPONIN I (test 0.003 ng/mL See_Comment [Automated code = 4423987267) message] The system which generated this result [...] biotin. Lab Interpretation Normal (test code = 83837-3) [facility] [id number] 00:22:59 Test Item Value Reference Range Interpretation Comments NT-proBNP (test code 55 pg/mL See_Comment [Autom ated = 6899201300) message] The system which generated this result transmitted reference range : <=125. The reference range was not used to interpret this result as normal/abnormal . GILBERTO (test code = GILBERTO) Biotin has been reported to cause a negative bias, interpret results relative to patient's use of biotin. Lab Interpretation Normal (test code = 74367-9) [facility] [id number] 00:22:59 Test Item Value Reference Interpretation Comments Range TROPONIN I (test 0.003 ng/mL See_Comment [Automated code = 0046103488) message] The system which generated this result [...] biotin. Lab Interpretation Normal (test code = 71235-8) [facility] [id number] 00:22:59 Test Item Value Reference Range Interpretation Comments NT-proBNP (test code 55 pg/mL See_Comment [Autom ated = 3848940679) message] The system which generated this result transmitted reference range : <=125. The reference range was not used to interpret this result as normal/abnormal . GILBERTO (test code = GILBERTO) Biotin has been reported to cause a negative bias, interpret results relative to patient's use of biotin. Lab Interpretation Normal (test code = 93081-2) [facility]OLIC PAN[facility] ([id number])2021-08-31 00:07:17 Test Item Value Reference Range Interpretation Comments NA (test code = 126 mmol/L 135-145 L 4471608079) K (test code = 4.3 mmol/L 3.5-5.0 Slight 2145037448) hemolysis CL (test code = 96 mmol/L 98-108 L 5957780888) CO2 TOTAL (test code 18 mmol/L 23-31 L = 4576048469) AGAP (test code = 2-16 8625288905) BUN (test code = 58 mg/dL 7-23 H Slight 2023659608) hemolysis GLUCOSE (test code = 108 mg/dL 70-110 3627893186) CREATININE (test code 2.11 mg/dL 0.60-1.25 H = 7810158183) TOTAL BILI (test code 0.7 mg/dL 0.1-1.1 = 7998660444) CALCIUM (test code = 9.2 mg/dL 8.6-10.6 2359080929) T PROTEIN (test code 7.6 g/dL 6.3-8.2 = 2338838796) ALBUMIN (test code = 4.9 g/dL 3.5-5.0 5970081652) ALK PHOS (test code = 96 U/L 34-122 Slight 9463080587) hemolysis ALTv (test code = 27 U/L 5-50 1742-6) AST(SGOT) (test code 46 U/L 13-40 H Slight = 0744033339) hemolysis eGFR (test code = mL/min/1.73m2 2820111065) GILBERTO (test code = GILBERTO) Association of [...] tests). Lab Interpretation Abnormal (test code = 43769-8) [facility]. METABOLIC PANEL ([id number])2021-08-31 00:07:17 Test Item Value Reference Range Interpretation Comments NA (test code = 126 mmol/L 135-145 L 2842055358) K (test code = 4.3 mmol/L 3.5-5.0 Slight 6567533384) hemolysis CL (test code = 96 mmol/L 98-108 L 4868165748) CO2 TOTAL (test code 18 mmol/L 23-31 L = 0779080079) AGAP (test code = 2-16 3466497099) BUN (test code = 58 mg/dL 7-23 H Slight 1931933995) hemolysis GLUCOSE (test code = 108 mg/dL 70-110 9785294560) CREATININE (test code 2.11 mg/dL 0.60-1.25 H = 6441861422) TOTAL BILI (test code 0.7 mg/dL 0.1-1.1 = 7863480526) CALCIUM (test code = 9.2 mg/dL 8.6-10.6 9850342739) T PROTEIN (test code 7.6 g/dL 6.3-8.2 = 4912348757) ALBUMIN (test code = 4.9 g/dL 3.5-5.0 6647347721) ALK PHOS (test code = 96 U/L 34-122 Slight 1996234068) hemolysis ALTv (test code = 27 U/L 5-50 1742-6) AST(SGOT) (test code 46 U/L 13-40 H Slight = 8115642614) hemolysis eGFR (test code = mL/min/1.73m2 1224392796) GILBERTO (test code = GILBERTO) Association of [...] tests). Lab Interpretation Abnormal (test code = 85478-1) [facility] WITH [id number] 23:36:10 Test Item Value Reference Range Interpretation Comments WBC (test code = See_Comment [Automated 0299-2) message] The sy stem which generated this result transmitted reference range : 4.20 - 10.70 10*3/?L. The reference range was not used to interpret this result as normal/abnormal . RBC (test code = See_Comment [Automated 723-8) message] The sy stem which [...] RDW-SD (test code = 41.7 fL 38.5-51.6 32577-5) RDW-CV (test code = 13.4 % 12.1-15.4 788-0) PLT (test code = See_Comment [Automated 607-3) message] The sy stem which generated this result transmitted reference range : 150 - 328 10*3/ ?L. The reference r meredith was not used to interpret this result as normal/abnormal . MPV (test code = 10.3 fL 9.8-13.0 90759-4) NRBC/100 WBC (test See_Comment [Automat ed code = 6813027632) message] The system which generated this result transmitted reference range : 0.0 - 10.0 /100 WBCs. The refer ence range was not u sed to interpret th is result as normal/abnormal . NRBC x10^3 (test code <0.01 See_Comment [Auto mated = 9186189495) message] The s ystem which generated this result transmitted reference range : 10*3/?L. The reference range was not used to interpret this result as normal/abnormal . GRAN MAT (NEUT) % 60.6 % (test code = 770-8) IMM GRAN % (test code 0.30 % = 4197009063) LYMPH % (test code = 29.1 % 736-9) MONO % (test code = 8.8 % 5905-5) EOS % (test code = 0.6 % 713-8) BASO % (test code = 0.6 % 706-2) GRAN MAT x10^3(ANC) 4.08 10*3/uL 1.99-6.95 (test code = 6099993924) IMM GRAN x10^3 (test <0.03 0.00-0.06 code = 6054973792) LYMPH x10^3 (test code 1.96 10*3/uL 1.09-3.23 = 731-0) MONO x10^3 (test code 0.59 10*3/uL 0.36-1.02 = 742-7) EOS x10^3 (test code = 0.04 10*3/uL 0.06-0.53 L 711-2) BASO x10^3 (test code 0.04 10*3/uL 0.01-0.09 = 704-7) Lab Interpretation Abnormal (test code = 41053-8) [facility] WITH [id number] 23:36:10 Test Item Value Reference Range Interpretation [...] RDW-SD (test code = 41.7 fL 38.5-51.6 94957-6) RDW-CV (test code = 13.4 % 12.1-15.4 788-0) PLT (test code = See_Comment [Automated 777-3) message] The sy stem which generated this result transmitted reference range : 150 - 328 10*3/ ?L. The reference r meredith was not used to interpret this result as normal/abnormal . MPV (test code = 10.3 fL 9.8-13.0 50694-5) NRBC/100 WBC (test See_Comment [Automat ed code = 7793531234) message] The system which generated this result transmitted reference range : 0.0 - 10.0 /100 WBCs. The refer ence range was not u sed to interpret th is result as normal/abnormal . NRBC x10^3 (test code <0.01 See_Comment [Auto mated = 6639957292) message] The s ystem which generated this result transmitted reference range : 10*3/?L. The reference range was not used to interpret this result as normal/abnormal . GRAN MAT (NEUT) % 60.6 % (test code = 770-8) IMM GRAN % (test code 0.30 % = 6533243893) LYMPH % (test code = 29.1 % 736-9) MONO % (test code = 8.8 % 5905-5) EOS % (test code = 0.6 % 713-8) BASO % (test code = 0.6 % 706-2) GRAN MAT x10^3(ANC) 4.08 10*3/uL 1.99-6.95 (test code = 5978440124) IMM GRAN x10^3 (test <0.03 0.00-0.06 code = 6881618294) LYMPH x10^3 (test code 1.96 10*3/uL 1.09-3.23 = 731-0) MONO x10^3 (test code 0.59 10*3/uL 0.36-1.02 = 742-7) EOS x10^3 (test code = 0.04 10*3/uL 0.06-0.53 L 711-2) BASO x10^3 (test code 0.04 10*3/uL 0.01-0.09 = 704-7) Lab Interpretation Abnormal (test code = 76517-0) [facility] FOR GROUP [id number] 00:24:00 Test Item Value Reference Range Interpretation Comments POCT GP A STREP (test code = Negative Negative - Negative 34281-0) Lab Interpretation (test code = Normal 32531-7) [facility]2021-[facility]-13 11:38:43 Test Item Value Reference Range Interpretation Comments PALB (test code = 42678-8) 25.2 mg/dL 18.0-45.0 Lab Interpretation (test code = Normal 25054-4) [facility] (NA, K, CL, CO2, GLUCOSE, BUN, CREATININE, CA)2021-08-05 11:30:59 Test Item Value Reference Range Interpretation Comments NA (test code = 140 mmol/L 135-145 0740194098) K (test code = 4.2 mmol/L 3.5-5.0 6859216688) CL (test code = 110 mmol/L 98-108 H 8342411726) CO2 TOTAL (test code = 27 mmol/L 23-31 3606564637) AGAP (test code = 2-16 4911677712) BUN (test code = 9 mg/dL 7-23 1870212308) GLUCOSE (test code = 86 mg/dL 70-110 7838772778) CREATININE (test code = 1.51 mg/dL 0.60-1.25 H 6251962793) CALCIUM (test code = 8.5 mg/dL 8.6-10.6 L 6829050613) eGFR (test code = mL/min/1.73m2 5887840105) GILBERTO (test code = GILBERTO) Association of [...] tests). Lab Interpretation Abnormal (test code = 60294-4) [facility] 11:30:59 Test Item Value Reference Range Interpretation Comments MAGNESIUM (test code = 8539513750) 2.0 mg/dL 1.7-2.4 Lab Interpretation (test code = Normal 75443-2) [facility]2021-[facility]-13 11:30:59 Test Item Value Reference Range Interpretation Comments PHOSPHORUS (test code = 2228956422) 5.1 mg/dL 2.5-5.0 H Lab Interpretation (test code = Abnormal 14025-2) [facility] 11:30:59 Test Item Value Reference Range Interpretation Comments ALBUMIN (test code = 3723297846) 3.1 g/dL 3.5-5.0 L Lab Interpretation (test code = Abnormal 70638-5) [facility] WITH [id number] 11:05:58 Test Item Value Reference Range Interpretation [...] RDW-SD (test code = 47.5 fL 38.5-51.6 89332-0) RDW-CV (test code = 14.0 % 12.1-15.4 788-0) PLT (test code = See_Comment [Automated 777-3) message] The sy stem which generated this result transmitted reference range : 150 - 328 10*3/ ?L. The reference r meredith was not used to interpret this result as normal/abnormal . MPV (test code = 9.5 fL 9.8-13.0 L 94423-3) NRBC/100 WBC (test See_Comment [Automat ed code = 4945977448) message] The system which generated this result transmitted reference range : 0.0 - 10.0 /100 WBCs. The refer ence range was not u sed to interpret th is result as normal/abnormal . NRBC x10^3 (test code <0.01 See_Comment [Auto mated = 6779056112) message] The s ystem which generated this result transmitted reference range : 10*3/?L. The reference range was not used to interpret this result as normal/abnormal . GRAN MAT (NEUT) % 52.5 % (test code = 770-8) IMM GRAN % (test code 0.30 % = 2888398886) LYMPH % (test code = 31.1 % 736-9) MONO % (test code = 11.7 % 5905-5) EOS % (test code = 3.9 % 713-8) BASO % (test code = 0.5 % 706-2) GRAN MAT x10^3(ANC) 2.03 10*3/uL 1.99-6.95 (test code = 8477018078) IMM GRAN x10^3 (test <0.03 0.00-0.06 code = 9226513854) LYMPH x10^3 (test code 1.20 10*3/uL 1.09-3.23 = 731-0) MONO x10^3 (test code 0.45 10*3/uL 0.36-1.02 = 742-7) EOS x10^3 (test code = 0.15 10*3/uL 0.06-0.53 711-2) BASO x10^3 (test code <0.03 0.01-0.09 = 704-7) Lab Interpretation Abnormal (test code = 00735-5) [facility] WITH [id number] 12:30:17 Test Item Value Reference Range Interpretation Comments WBC (test code = See_Comment L [Automated 2590-2) message] The sy stem which [...] RDW-SD (test code = 49.2 fL 38.5-51.6 23862-0) RDW-CV (test code = 14.3 % 12.1-15.4 788-0) PLT (test code = See_Comment [Automated 777-3) message] The sy stem which generated this result transmitted reference range : 150 - 328 10*3/ ?L. The reference r meredith was not used to interpret this result as normal/abnormal . MPV (test code = 9.2 fL 9.8-13.0 L 97166-4) NRBC/100 WBC (test See_Comment [Automat ed code = 2383910398) message] The system which generated this result transmitted reference range : 0.0 - 10.0 /100 WBCs. The refer ence range was not u sed to interpret th is result as normal/abnormal . NRBC x10^3 (test code <0.01 See_Comment [Auto mated = 5478240469) message] The s ystem which generated this result transmitted reference range : 10*3/?L. The reference range was not used to interpret this result as normal/abnormal . GRAN MAT (NEUT) % 47.2 % (test code = 770-8) IMM GRAN % (test code 0.30 % = 9081528566) LYMPH % (test code = 36.0 % 736-9) MONO % (test code = 12.6 % 5905-5) EOS % (test code = 3.4 % 713-8) BASO % (test code = 0.5 % 706-2) GRAN MAT x10^3(ANC) 1.80 10*3/uL 1.99-6.95 L (test code = 1972628232) IMM GRAN x10^3 (test <0.03 0.00-0.06 code = 7716972257) LYMPH x10^3 (test code 1.37 10*3/uL 1.09-3.23 = 731-0) MONO x10^3 (test code 0.48 10*3/uL 0.36-1.02 = 742-7) EOS x10^3 (test code = 0.13 10*3/uL 0.06-0.53 711-2) BASO x10^3 (test code <0.03 0.01-0.09 = 704-7) Lab Interpretation Abnormal (test code = 32593-1) [facility] METABOLIC PANEL (NA, K, CL, CO2, GLUCOSE, BUN, CREATININE, CA)2021-08-04 12:17:48 Test Item Value Reference Range Interpretation Comments NA (test code = 139 mmol/L 135-145 7719360928) K (test code = 4.3 mmol/L 3.5-5.0 4192622774) CL (test code = 110 mmol/L 98-108 H 2293113640) CO2 TOTAL (test code = 26 mmol/L 23-31 3955610547) AGAP (test code = 2-16 2759813046) BUN (test code = 8 mg/dL 7-23 2607766316) GLUCOSE (test code = 87 mg/dL 70-110 1625219886) CREATININE (test code = 1.50 mg/dL 0.60-1.25 H 6788847319) CALCIUM (test code = 8.4 mg/dL 8.6-10.6 L 7948112092) eGFR (test code = mL/min/1.73m2 6366817851) GILBERTO (test code = GILBERTO) Association of [...] tests). Lab Interpretation Abnormal (test code = 72736-3) [facility] Test Item Value Reference Range Interpretation Comments MAGNESIUM (test code = 3773670715) 1.9 mg/dL 1.7-2.4 Lab Interpretation (test code = Normal 00748-7) [facility] Test Item Value Reference Range Interpretation Comments PHOSPHORUS (test code = 2721616709) 4.6 mg/dL 2.5-5.0 Lab Interpretation (test code = Normal 09532-3) [facility]OX2849-[facility]-02 11:23:38 Test Item Value Reference Range Interpretation Comments WBC (test code = See_Comment L [Automated 4390-2) message] The sy stem which generated this [...] RDW-SD (test code = 47.8 fL 38.5-51.6 93536-2) RDW-CV (test code = 14.1 % 12.1-15.4 788-0) PLT (test code = See_Comment [Automated 777-3) message] The sy stem which generated this result transmitted reference range : 150 - 328 10*3/ ?L. The reference r meredith was not used to interpret this result as normal/abnormal . MPV (test code = 9.3 fL 9.8-13.0 L 99431-9) NRBC/100 WBC (test See_Comment [Automat ed code = 7954361746) message] The system which generated this result transmitted reference range : 0.0 - 10.0 /100 WBCs. The refer ence range was not u sed to interpret th is result as normal/abnormal . NRBC x10^3 (test code <0.01 See_Comment [Auto mated = 8267558373) message] The s ystem which generated this result transmitted reference range : 10*3/?L. The reference range was not used to interpret this result as normal/abnormal . GRAN MAT (NEUT) % 49.3 % (test code = 770-8) IMM GRAN % (test code 0.30 % = 7347485398) LYMPH % (test code = 34.6 % 736-9) MONO % (test code = 12.0 % 5905-5) EOS % (test code = 3.3 % 713-8) BASO % (test code = 0.5 % 706-2) GRAN MAT x10^3(ANC) 1.97 10*3/uL 1.99-6.95 L (test code = 7179964532) IMM GRAN x10^3 (test <0.03 0.00-0.06 code = 1132619012) LYMPH x10^3 (test code 1.38 10*3/uL 1.09-3.23 = 731-0) MONO x10^3 (test code 0.48 10*3/uL 0.36-1.02 = 742-7) EOS x10^3 (test code = 0.13 10*3/uL 0.06-0.53 711-2) BASO x10^3 (test code <0.03 0.01-0.09 = 704-7) Lab Interpretation Abnormal (test code = 02373-5) [facility] METABOLIC PANEL (NA, K, CL, CO2, GLUCOSE, BUN, CREATININE, CA)2021-08-03 11:18:55 Test Item Value Reference Range Interpretation Comments NA (test code = 139 mmol/L 135-145 9323667767) K (test code = 4.1 mmol/L 3.5-5.0 2442883014) CL (test code = 110 mmol/L 98-108 H 7593165042) CO2 TOTAL (test code = 27 mmol/L 23-31 0268319792) AGAP (test code = 2-16 0861823676) BUN (test code = 8 mg/dL 7-23 7807531754) GLUCOSE (test code = 93 mg/dL 70-110 3083550527) CREATININE (test code = 1.39 mg/dL 0.60-1.25 H 2189618507) CALCIUM (test code = 8.1 mg/dL 8.6-10.6 L 6252077510) eGFR (test code = mL/min/1.73m2 0958196158) GILBERTO (test code = GILBERTO) Association of [...] tests). Lab Interpretation Abnormal (test code = 15787-8) [facility] Test Item Value Reference Range Interpretation Comments MAGNESIUM (test code = 5208295954) 2.0 mg/dL 1.7-2.4 Lab Interpretation (test code = Normal 52065-3) [facility] 11:18:55 Test Item Value Reference Range Interpretation Comments PHOSPHORUS (test code = 1682011701) 3.8 mg/dL 2.5-5.0 Lab Interpretation (test code = Normal 49966-2) [facility] (NA, K, CL, CO2, GLUCOSE, BUN, CREATININE, CA)2021-08-02 14:06:51 Test Item Value Reference Range Interpretation Comments NA (test code = 137 mmol/L 135-145 3165310153) K (test code = 4.4 mmol/L 3.5-5.0 3525824716) CL (test code = 108 mmol/L 98-108 7357995312) CO2 TOTAL (test code = 24 mmol/L 23-31 7781484219) AGAP (test code = 2-16 6365339938) BUN (test code = 10 mg/dL 7-23 0864108993) GLUCOSE (test code = 83 mg/dL 70-110 8977898858) CREATININE (test code = 1.48 mg/dL 0.60-1.25 H 3721593037) CALCIUM (test code = 8.4 mg/dL 8.6-10.6 L 0940513974) eGFR (test code = mL/min/1.73m2 7562294908) GILBERTO (test code = GILBERTO) Association of [...] tests). Lab Interpretation Abnormal (test code = 36590-3) [facility] 14:06:51 Test Item Value Reference Range Interpretation Comments MAGNESIUM (test code = 9266167640) 2.1 mg/dL 1.7-2.4 Lab Interpretation (test code = Normal 26945-7) [facility] 14:06:51 Test Item Value Reference Range Interpretation Comments PHOSPHORUS (test code = 6093857836) 4.6 mg/dL 2.5-5.0 Lab Interpretation (test code = Normal 52031-5) [facility] [id number] 12:30:05 Test Item Value Reference Range Interpretation [...] RDW-SD (test code = 48.6 fL 38.5-51.6 81013-8) RDW-CV (test code = 14.3 % 12.1-15.4 788-0) PLT (test code = See_Comment [Automated 777-3) message] The sy stem which generated this result transmitted reference range : 150 - 328 10*3/ ?L. The reference r meredith was not used to interpret this result as normal/abnormal . MPV (test code = 10.0 fL 9.8-13.0 50819-3) NRBC/100 WBC (test See_Comment [Automat ed code = 2907991115) message] The system which generated this result transmitted reference range : 0.0 - 10.0 /100 WBCs. The refer ence range was not u sed to interpret th is result as normal/abnormal . NRBC x10^3 (test code <0.01 See_Comment [Auto mated = 1493610837) message] The s ystem which generated this result transmitted reference range : 10*3/?L. The reference range was not used to interpret this result as normal/abnormal . GRAN MAT (NEUT) % 51.9 % (test code = 770-8) IMM GRAN % (test code 0.60 % = 7634623283) LYMPH % (test code = 32.7 % 736-9) MONO % (test code = 11.3 % 5905-5) EOS % (test code = 3.2 % 713-8) BASO % (test code = 0.3 % 706-2) GRAN MAT x10^3(ANC) 1.80 10*3/uL 1.99-6.95 L (test code = 3978814573) IMM GRAN x10^3 (test <0.03 0.00-0.06 code = 5808083661) LYMPH x10^3 (test code 1.13 10*3/uL 1.09-3.23 = 731-0) MONO x10^3 (test code 0.39 10*3/uL 0.36-1.02 = 742-7) EOS x10^3 (test code = 0.11 10*3/uL 0.06-0.53 711-2) BASO x10^3 (test code <0.03 0.01-0.09 = 704-7) Lab Interpretation Abnormal (test code = 48071-6) [facility] WITH [id number] 10:44:18 Test Item Value Reference Range Interpretation [...] RDW-SD (test code = 48.0 fL 38.5-51.6 02581-6) RDW-CV (test code = 14.1 % 12.1-15.4 788-0) PLT (test code = See_Comment [Automated 777-3) message] The sy stem which generated this result transmitted reference range : 150 - 328 10*3/ ?L. The reference r meredith was not used to interpret this result as normal/abnormal . MPV (test code = 9.5 fL 9.8-13.0 L 83913-2) NRBC/100 WBC (test See_Comment [Automat ed code = 4841687585) message] The system which generated this result transmitted reference range : 0.0 - 10.0 /100 WBCs. The refer ence range was not u sed to interpret th is result as normal/abnormal . NRBC x10^3 (test code <0.01 See_Comment [Auto mated = 7237217389) message] The s ystem which generated this result transmitted reference range : 10*3/?L. The reference range was not used to interpret this result as normal/abnormal . GRAN MAT (NEUT) % 50.8 % (test code = 770-8) IMM GRAN % (test code 0.30 % = 6980379021) LYMPH % (test code = 34.6 % 736-9) MONO % (test code = 10.3 % 5905-5) EOS % (test code = 3.7 % 713-8) BASO % (test code = 0.3 % 706-2) GRAN MAT x10^3(ANC) 1.78 10*3/uL 1.99-6.95 L (test code = 6683507865) IMM GRAN x10^3 (test <0.03 0.00-0.06 code = 9401011154) LYMPH x10^3 (test code 1.21 10*3/uL 1.09-3.23 = 731-0) MONO x10^3 (test code 0.36 10*3/uL 0.36-1.02 = 742-7) EOS x10^3 (test code = 0.13 10*3/uL 0.06-0.53 711-2) BASO x10^3 (test code <0.03 0.01-0.09 = 704-7) Lab Interpretation Abnormal (test code = 86163-4) [facility] METABOLIC PANEL (NA, K, CL, CO2, GLUCOSE, BUN, CREATININE, CA)2021-08-01 10:25:17 Test Item Value Reference Range Interpretation Comments NA (test code = 138 mmol/L 135-145 5190736983) K (test code = 4.1 mmol/L 3.5-5.0 7493546339) CL (test code = 105 mmol/L 98-108 3862023889) CO2 TOTAL (test code = 28 mmol/L 23-31 3260620419) AGAP (test code = 2-16 9557432428) BUN (test code = 13 mg/dL 7-23 5040878740) GLUCOSE (test code = 86 mg/dL 70-110 0583770950) CREATININE (test code = 1.46 mg/dL 0.60-1.25 H 8508663979) CALCIUM (test code = 8.7 mg/dL 8.6-10.6 4778878806) eGFR (test code = mL/min/1.73m2 6728726772) GILBERTO (test code = GILBERTO) Association of [...] tests). Lab Interpretation Abnormal (test code = 66646-5) [facility] 10:25:17 Test Item Value Reference Range Interpretation Comments MAGNESIUM (test code = 8733634238) 1.6 mg/dL 1.7-2.4 L Lab Interpretation (test code = Abnormal 98785-5) [facility] 10:25:17 Test Item Value Reference Range Interpretation Comments PHOSPHORUS (test code = 4270303078) 4.1 mg/dL 2.5-5.0 Lab Interpretation (test code = Normal 38187-5) [facility] 16:18:34 Test Item Value Reference Range Interpretation Comments PALB (test code = 67602-5) 24.3 mg/dL 18.0-45.0 Lab Interpretation (test code = Normal 42310-1) [facility] [id number] 11:20:19 Test Item Value Reference Range Interpretation [...] RDW-SD (test code = 49.6 fL 38.5-51.6 62701-8) RDW-CV (test code = 14.6 % 12.1-15.4 788-0) PLT (test code = See_Comment [Automated 777-3) message] The sy stem which generated this result transmitted reference range : 150 - 328 10*3/ ?L. The reference r meredith was not used to interpret this result as normal/abnormal . MPV (test code = 9.6 fL 9.8-13.0 L 34337-6) NRBC/100 WBC (test See_Comment [Automat ed code = 4312936906) message] The system which generated this result transmitted reference range : 0.0 - 10.0 /100 WBCs. The refer ence range was not u sed to interpret th is result as normal/abnormal . NRBC x10^3 (test code <0.01 See_Comment [Auto mated = 2838060803) message] The s ystem which generated this result transmitted reference range : 10*3/?L. The reference range was not used to interpret this result as normal/abnormal . GRAN MAT (NEUT) % 49.1 % (test code = 770-8) IMM GRAN % (test code 0.30 % = 4698611492) LYMPH % (test code = 36.0 % 736-9) MONO % (test code = 10.6 % 5905-5) EOS % (test code = 3.4 % 713-8) BASO % (test code = 0.6 % 706-2) GRAN MAT x10^3(ANC) 1.76 10*3/uL 1.99-6.95 L (test code = 5155692994) IMM GRAN x10^3 (test <0.03 0.00-0.06 code = 6993175120) LYMPH x10^3 (test code 1.29 10*3/uL 1.09-3.23 = 731-0) MONO x10^3 (test code 0.38 10*3/uL 0.36-1.02 = 742-7) EOS x10^3 (test code = 0.12 10*3/uL 0.06-0.53 711-2) BASO x10^3 (test code <0.03 0.01-0.09 = 704-7) Lab Interpretation Abnormal (test code = 25468-5) [facility] METABOLIC PANEL (NA, K, CL, CO2, GLUCOSE, BUN, CREATININE, CA)2021-07-31 11:11:17 Test Item Value Reference Range Interpretation Comments NA (test code = 135 mmol/L 135-145 1149116947) K (test code = 3.8 mmol/L 3.5-5.0 7006009139) CL (test code = 108 mmol/L 98-108 8058023375) CO2 TOTAL (test code = 24 mmol/L 23-31 7812634548) AGAP (test code = 2-16 7725986143) BUN (test code = 13 mg/dL 7-23 5820222789) GLUCOSE (test code = 88 mg/dL 70-110 1705090179) CREATININE (test code = 1.32 mg/dL 0.60-1.25 H 4057047618) CALCIUM (test code = 8.4 mg/dL 8.6-10.6 L 6090913621) eGFR (test code = mL/min/1.73m2 1995499853) GILBERTO (test code = GILBERTO) Association of [...] tests). Lab Interpretation Abnormal (test code = 21527-7) [facility] 11:11:17 Test Item Value Reference Range Interpretation Comments MAGNESIUM (test code = 9496282196) 1.8 mg/dL 1.7-2.4 Lab Interpretation (test code = Normal 58293-7) [facility] 11:11:17 Test Item Value Reference Range Interpretation Comments PHOSPHORUS (test code = 1740546082) 4.0 mg/dL 2.5-5.0 Lab Interpretation (test code = Normal 78014-8) [facility] (47639)2021-07-30 03:46:32 Test Item Value Reference Range Interpretation Comments NA (test code = 132 mmol/L 135-145 L 3610803006) K (test code = 4.4 mmol/L 3.5-5.0 6940421307) CL (test code = 102 mmol/L 98-108 1419269559) CO2 TOTAL (test code = 24 mmol/L 23-31 1876456465) AGAP (test code = 2-16 6344170813) BUN (test code = 21 mg/dL 7-23 2203137481) GLUCOSE (test code = 95 mg/dL 70-110 3928852452) CREATININE (test code = 1.76 mg/dL 0.60-1.25 H 5696925150) TOTAL BILI (test code = 0.7 mg/dL 0.1-1.1 1167266879) CALCIUM (test code = 8.8 mg/dL 8.6-10.6 2005997684) T PROTEIN (test code = 6.0 g/dL 6.3-8.2 L 4436713183) ALBUMIN (test code = 3.8 g/dL 3.5-5.0 2221249018) ALK PHOS (test code = 67 U/L 34-122 9167806407) ALTv (test code = 47 U/L 5-50 1742-6) AST(SGOT) (test code = 39 U/L 13-40 9312772533) eGFR (test code = mL/min/1.73m2 7567801145) GILBERTO (test code = GILBERTO) Association of [...] tests). Lab Interpretation Abnormal (test code = 25322-9) [facility] 03:19:26 Test Item Value Reference Range Interpretation Comments LIPASE (test code = 5362413129) 58 U/L 0-220 Lab Interpretation (test code = Normal 33691-4) [facility] [id number] 03:07:20 Test Item Value Reference Range Interpretation [...] RDW-SD (test code = 47.4 fL 38.5-51.6 48072-7) RDW-CV (test code = 14.2 % 12.1-15.4 788-0) PLT (test code = See_Comment [Automated 777-3) message] The sy stem which generated this result transmitted reference range : 150 - 328 10*3/ ?L. The reference r meredith was not used to interpret this result as normal/abnormal . MPV (test code = 9.9 fL 9.8-13.0 99559-7) NRBC/100 WBC (test See_Comment [Automat ed code = 7351300937) message] The system which generated this result transmitted reference range : 0.0 - 10.0 /100 WBCs. The refer ence range was not u sed to interpret th is result as normal/abnormal . NRBC x10^3 (test code <0.01 See_Comment [Auto mated = 4423328605) message] The s ystem which generated this result transmitted reference range : 10*3/?L. The reference range was not used to interpret this result as normal/abnormal . GRAN MAT (NEUT) % 61.1 % (test code = 770-8) IMM GRAN % (test code 0.20 % = 3802557057) LYMPH % (test code = 24.4 % 736-9) MONO % (test code = 11.8 % 5905-5) EOS % (test code = 2.2 % 713-8) BASO % (test code = 0.3 % 706-2) GRAN MAT x10^3(ANC) 3.98 10*3/uL 1.99-6.95 (test code = 3798084903) IMM GRAN x10^3 (test <0.03 0.00-0.06 code = 2764836872) LYMPH x10^3 (test code 1.59 10*3/uL 1.09-3.23 = 731-0) MONO x10^3 (test code 0.77 10*3/uL 0.36-1.02 = 742-7) EOS x10^3 (test code = 0.14 10*3/uL 0.06-0.53 711-2) BASO x10^3 (test code <0.03 0.01-0.09 = 704-7) Lab Interpretation Abnormal (test code = 68003-9) [facility] Whole [id number] 03:00:47 Test Item Value Reference Range Interpretation Comments LACTIC ACID (test code = 1.45 mmol/L 0.50-2.20 QUE S 1114761269) Lab Interpretation (test code = Normal 03792-1) [facility] [id number] 11:51:00 Test Item Value Reference Range Interpretation [...] Units/L 50.0-136.0 N code = ALKP) PROTHROMBIN [id number] 11:41:00 Test Item Value Reference Range Interpretation Comments PROTHROMBIN TIME 10.9 SECONDS 9.9-12.8 N PATIENT (test code = PTP) INTERNATIONAL NORMAL 0.9 0.89-1.14 N THE INR IS TO BE USED RATIO (test code = ONLY FOR MONITORING INR) ORAL ANTICOAGULANTTH ERAPY. THE FOLLOWING A RE SUGGESTED RANGE S FROM [facility]:ROOPA CATION INR [...] D ANTIBODIES 2.5 - 3.5 CBC W/AUTO [id number] 11:36:00 Test Item Value Reference Range Interpretation [...] NA (test code = 137 mmol/L 135-145 5934629367) K (test code = 4.2 mmol/L 3.5-5.0 6008886443) CL (test code = 109 mmol/L 98-108 H 9889093127) CO2 TOTAL (test code = 25 mmol/L 23-31 5491420449) AGAP (test code = 2-16 8105748987) BUN (test code = 11 mg/dL 7-23 8216359277) GLUCOSE (test code = 83 mg/dL 70-110 1569432713) CREATININE (test code = 1.40 mg/dL 0.60-1.25 H 2176380738) CALCIUM (test code = 8.6 mg/dL 8.6-10.6 8702776112) eGFR (test code = mL/min/1.73m2 9997333644) GILBERTO (test code = GILBERTO) Association of [...] tests). Lab Interpretation Abnormal (test code = 82907-5) [facility] 13:15:26 Test Item Value Reference Range Interpretation Comments MAGNESIUM (test code = 0432431631) 1.6 mg/dL 1.7-2.4 L Lab Interpretation (test code = Abnormal 48218-7) [facility] 13:15:26 Test Item Value Reference Range Interpretation Comments PHOSPHORUS (test code = 9086701041) 3.5 mg/dL 2.5-5.0 Lab Interpretation (test code = Normal 10391-0) [facility] [id number] 12:50:41 Test Item Value Reference Range Interpretation [...] RDW-SD (test code = 46.7 fL 38.5-51.6 11391-9) RDW-CV (test code = 14.3 % 12.1-15.4 788-0) PLT (test code = See_Comment [Automated 777-3) message] The sy stem which generated this result transmitted reference range : 150 - 328 10*3/ ?L. The reference r meredith was not used to interpret this result as normal/abnormal . MPV (test code = 9.6 fL 9.8-13.0 L 04222-3) NRBC/100 WBC (test See_Comment [Automat ed code = 7173468312) message] The system which generated this result transmitted reference range : 0.0 - 10.0 /100 WBCs. The refer ence range was not u sed to interpret th is result as normal/abnormal . NRBC x10^3 (test code <0.01 See_Comment [Auto mated = 7366996571) message] The s ystem which generated this result transmitted reference range : 10*3/?L. The reference range was not used to interpret this result as normal/abnormal . GRAN MAT (NEUT) % 52.7 % (test code = 770-8) IMM GRAN % (test code 0.40 % = 7666945959) LYMPH % (test code = 33.7 % 736-9) MONO % (test code = 10.4 % 5905-5) EOS % (test code = 2.4 % 713-8) BASO % (test code = 0.4 % 706-2) GRAN MAT x10^3(ANC) 2.65 10*3/uL 1.99-6.95 (test code = 6147756391) IMM GRAN x10^3 (test <0.03 0.00-0.06 code = 3352815154) LYMPH x10^3 (test code 1.69 10*3/uL 1.09-3.23 = 731-0) MONO x10^3 (test code 0.52 10*3/uL 0.36-1.02 = 742-7) EOS x10^3 (test code = 0.12 10*3/uL 0.06-0.53 711-2) BASO x10^3 (test code <0.03 0.01-0.09 = 704-7) Lab Interpretation Abnormal (test code = 54434-7) [facility] 12:35:59 Test Item Value Reference Range Interpretation Comments MAGNESIUM (test code = 8928123034) 1.6 mg/dL 1.7-2.4 L Lab Interpretation (test code = Abnormal 44759-1) [facility] 12:35:59 Test Item Value Reference Range Interpretation Comments PHOSPHORUS (test code = 5497328076) 4.0 mg/dL 2.5-5.0 Lab Interpretation (test code = Normal 00307-5) [facility] (NA, K, CL, CO2, GLUCOSE, BUN, CREATININE, CA)2021-07-25 12:09:12 Test Item Value Reference Range Interpretation Comments NA (test code = 139 mmol/L 135-145 7679017774) K (test code = 4.1 mmol/L 3.5-5.0 0760892938) CL (test code = 111 mmol/L 98-108 H 2250272427) CO2 TOTAL (test code = 25 mmol/L 23-31 8428542937) AGAP (test code = 2-16 3433949121) BUN (test code = 13 mg/dL 7-23 4925870780) GLUCOSE (test code = 86 mg/dL 70-110 4783765661) CREATININE (test code = 1.43 mg/dL 0.60-1.25 H 7063809121) CALCIUM (test code = 8.4 mg/dL 8.6-10.6 L 2984259438) eGFR (test code = mL/min/1.73m2 3848667814) GILBERTO (test code = GILBERTO) Association of [...] tests). Lab Interpretation Abnormal (test code = 11164-6) [facility] WITH [id number] 11:44:33 Test Item Value Reference Range Interpretation Comments WBC (test code = See_Comment [Automated 1490-2) message] The sy stem which generated this [...] RDW-SD (test code = 48.9 fL 38.5-51.6 69503-1) RDW-CV (test code = 14.3 % 12.1-15.4 788-0) PLT (test code = See_Comment [Automated 777-3) message] The sy stem which generated this result transmitted reference range : 150 - 328 10*3/ ?L. The reference r meredith was not used to interpret this result as normal/abnormal . MPV (test code = 9.6 fL 9.8-13.0 L 73826-5) NRBC/100 WBC (test See_Comment [Automat ed code = 0581249430) message] The system which generated this result transmitted reference range : 0.0 - 10.0 /100 WBCs. The refer ence range was not u sed to interpret th is result as normal/abnormal . NRBC x10^3 (test code <0.01 See_Comment [Auto mated = 0780268132) message] The s ystem which generated this result transmitted reference range : 10*3/?L. The reference range was not used to interpret this result as normal/abnormal . GRAN MAT (NEUT) % 50.0 % (test code = 770-8) IMM GRAN % (test code 0.20 % = 6056657602) LYMPH % (test code = 36.7 % 736-9) MONO % (test code = 10.0 % 5905-5) EOS % (test code = 2.6 % 713-8) BASO % (test code = 0.5 % 706-2) GRAN MAT x10^3(ANC) 2.11 10*3/uL 1.99-6.95 (test code = 7074927140) IMM GRAN x10^3 (test <0.03 0.00-0.06 code = 2851511121) LYMPH x10^3 (test code 1.55 10*3/uL 1.09-3.23 = 731-0) MONO x10^3 (test code 0.42 10*3/uL 0.36-1.02 = 742-7) EOS x10^3 (test code = 0.11 10*3/uL 0.06-0.53 711-2) BASO x10^3 (test code <0.03 0.01-0.09 = 704-7) Lab Interpretation Abnormal (test code = 95847-4) [facility] WITH [id number] 04:23:56 Test Item Value Reference Range Interpretation [...] RDW-SD (test code = 49.0 fL 38.5-51.6 86119-1) RDW-CV (test code = 14.4 % 12.1-15.4 788-0) PLT (test code = See_Comment [Automated 777-3) message] The sy stem which generated this result transmitted reference range : 150 - 328 10*3/ ?L. The reference r meredith was not used to interpret this result as normal/abnormal . MPV (test code = 9.5 fL 9.8-13.0 L 54926-2) NRBC/100 WBC (test See_Comment [Automat ed code = 8288677090) message] The system which generated this result transmitted reference range : 0.0 - 10.0 /100 WBCs. The refer ence range was not u sed to interpret th is result as normal/abnormal . NRBC x10^3 (test code <0.01 See_Comment [Auto mated = 6344667086) message] The s ystem which generated this result transmitted reference range : 10*3/?L. The reference range was not used to interpret this result as normal/abnormal . GRAN MAT (NEUT) % 49.9 % (test code = 770-8) IMM GRAN % (test code 0.20 % = 1355568965) LYMPH % (test code = 35.2 % 736-9) MONO % (test code = 11.7 % 5905-5) EOS % (test code = 2.4 % 713-8) BASO % (test code = 0.6 % 706-2) GRAN MAT x10^3(ANC) 2.31 10*3/uL 1.99-6.95 (test code = 0793756921) IMM GRAN x10^3 (test <0.03 0.00-0.06 code = 2280510921) LYMPH x10^3 (test code 1.63 10*3/uL 1.09-3.23 = 731-0) MONO x10^3 (test code 0.54 10*3/uL 0.36-1.02 = 742-7) EOS x10^3 (test code = 0.11 10*3/uL 0.06-0.53 711-2) BASO x10^3 (test code 0.03 10*3/uL 0.01-0.09 = 704-7) Lab Interpretation Abnormal (test code = 52514-4) [facility] (NA, K, CL, CO2, GLUCOSE, BUN, CREATININE, CA)2021-07-24 12:55:24 Test Item Value Reference Range Interpretation Comments NA (test code = 135 mmol/L 135-145 7442778565) K (test code = 4.0 mmol/L 3.5-5.0 7389622321) CL (test code = 109 mmol/L 98-108 H 7676438967) CO2 TOTAL (test code = 22 mmol/L 23-31 L 0431825730) AGAP (test code = 2-16 1928231601) BUN (test code = 12 mg/dL 7-23 1305346054) GLUCOSE (test code = 102 mg/dL 70-110 2124382820) CREATININE (test code = 1.27 mg/dL 0.60-1.25 H 7408910314) CALCIUM (test code = 8.6 mg/dL 8.6-10.6 7767932493) eGFR (test code = mL/min/1.73m2 4075902905) GILBERTO (test code = GILBERTO) Association of [...] tests). Lab Interpretation Abnormal (test code = 35583-1) [facility]:24 Test Item Value Reference Range Interpretation Comments MAGNESIUM (test code = 8351639704) 1.7 mg/dL 1.7-2.4 Lab Interpretation (test code = Normal 96565-4) [facility] 12[facility]55:24 Test Item Value Reference Range Interpretation Comments PHOSPHORUS (test code = 9134000847) 3.1 mg/dL 2.5-5.0 Lab Interpretation (test code = Normal 81161-5) [facility] (NA, K, CL, CO2, Glucose, BUN, Creatinine, CA)2021-07-23 13:27:55 Test Item Value Reference Range Interpretation Comments NA (test code = 134 mmol/L 135-145 L 5908519817) K (test code = 3.8 mmol/L 3.5-5.0 1138378043) CL (test code = 107 mmol/L 98-108 9994800693) CO2 TOTAL (test code = 21 mmol/L 23-31 L 3996879831) AGAP (test code = 2-16 0766148325) BUN (test code = 18 mg/dL 7-23 3466680095) GLUCOSE (test code = 120 mg/dL 70-110 H 4307353280) CREATININE (test code = 1.46 mg/dL 0.60-1.25 H 3572323129) CALCIUM (test code = 8.7 mg/dL 8.6-10.6 7674916907) eGFR (test code = mL/min/1.73m2 5315075350) GILBERTO (test code = GILBERTO) Association of [...] tests). Lab Interpretation Abnormal (test code = 95797-0) [facility] 13:27:55 Test Item Value Reference Range Interpretation Comments MAGNESIUM (test code = 5167441206) 1.9 mg/dL 1.7-2.4 Lab Interpretation (test code = Normal 71911-8) [facility] 13:27:55 Test Item Value Reference Range Interpretation Comments PHOSPHORUS (test code = 3559554221) 3.5 mg/dL 2.5-5.0 Lab Interpretation (test code = Normal 91758-6) [facility] Xaggdqreogln4065-71-29 13:06:55 Test Item Value Reference Range Interpretation [...] RDW-SD (test code = 47.8 fL 38.5-51.6 39830-8) RDW-CV (test code = 14.4 % 12.1-15.4 788-0) PLT (test code = See_Comment [Automated 777-3) message] The sy stem which generated this result transmitted reference range : 150 - 328 10*3/ ?L. The reference r meredith was not used to interpret this result as normal/abnormal . MPV (test code = 9.4 fL 9.8-13.0 L 94411-3) NRBC/100 WBC (test See_Comment [Automat ed code = 1765351258) message] The system which generated this result transmitted reference range : 0.0 - 10.0 /100 WBCs. The refer ence range was not u sed to interpret th is result as normal/abnormal . NRBC x10^3 (test code <0.01 See_Comment [Auto mated = 8910242143) message] The s ystem which generated this result transmitted reference range : 10*3/?L. The reference range was not used to interpret this result as normal/abnormal . GRAN MAT (NEUT) % 54.7 % (test code = 770-8) IMM GRAN % (test code 0.40 % = 2558240019) LYMPH % (test code = 33.3 % 736-9) MONO % (test code = 9.4 % 5905-5) EOS % (test code = 1.8 % 713-8) BASO % (test code = 0.4 % 706-2) GRAN MAT x10^3(ANC) 2.78 10*3/uL 1.99-6.95 (test code = 1002661502) IMM GRAN x10^3 (test <0.03 0.00-0.06 code = 8782525660) LYMPH x10^3 (test code 1.69 10*3/uL 1.09-3.23 = 731-0) MONO x10^3 (test code 0.48 10*3/uL 0.36-1.02 = 742-7) EOS x10^3 (test code = 0.09 10*3/uL 0.06-0.53 711-2) BASO x10^3 (test code <0.03 0.01-0.09 = 704-7) Lab Interpretation Abnormal (test code = 85936-1) [facility] W/AUTO [id number] 09:48:00 Test Item Value Reference Range Interpretation [...] = MX#) 0.8 k/mm3 0.1-0.8 N GLUCOSE [id number] 06:12:00 Test Item Value Reference Range Interpretation Comments GLUCOSE BEDSIDE (test 129 MG/DL 70-110 H Perfor med by certified code = GLUBED) 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 [facility] BASIC METABOLIC [id number] 05:21:00 Test Item Value Reference Range Interpretation [...] (test code = POCGLU) 92 MG/DL GLUCOSE [id number] 05:19:00 Test Item Value Reference Range Interpretation Comments GLUCOSE BEDSIDE (test 51 MG/DL 70-110 L Perfor med by certified code = GLUBED) 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 [facility] CBC W/AUTO [id number] 14:00:00 Test Item Value Reference Range Interpretation [...] MX#) 0.2 k/mm3 0.1-0.8 N CBC W/AUTO [id number] 00:07:00 Test Item Value Reference Range Interpretation [...] = LY#) 2.4 K/uL 1.0-3.8 N LIVER [id number] 16:14:00 Test Item Value Reference Range Interpretation Comments TOTAL PROTEIN (test code 7.5 GM/DL 5.0-8.0 N Per formed by = PROT) 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 [facility] C[facility] ALBUMIN (test code = [...] 65 UNITS/L 25-125 N TAWNY) BASIC METABOLIC [id number] 16:07:00 Test Item Value Reference Range Interpretation [...] POCGLU) 96 MG/DL - XR CHEST 1 [id number] 00:00:00 [facility] PRIETO JOSEPHJUANITO NICOLAS : 1970 Sex: MFAX: Sabi Urias MD [phone] [place]: [place] St: PRE Name: JOSEPHDORA FSED : 1970 Age/S: 51/M [address] [facility] Unit #: [id number] Loc: [place] [address] Phys: Sabi Urias MD Acct: [id number] Dis Date: Status: PRE ER PHONE #: Exam Date: 06/27/2021 1173 FAX #: Reason: Abdominal PainEXAMS: CPT CODE: [id number] XR CHEST 1 V 17425 PROCEDURE INFORMATION: Exam: XR Chest Exam date [...] M.D. CC: Sabi Urias MD Technologist: RT Alanna(Esperanza)(CT) Trnscrd Date/Time/By: 06/27/2021 (1558) : By: [email or web address] Orig Print D/T: S: 06/27/2021 (1389) PAGE 1 Signed Report- CT ABD PELVIS W/[id number] 00:00:00 [facility]A JOSEPH : 1970 Sex: MName: DORA JOSEPH FSED : 1970 Age/S: 51 / M [address] [facility] Unit #: [id number] Loc: [place] [address] Phys: Sabi Urias MD Acct: [id number] Dis Date: Status: REG ER PHONE #: Exam Date: 06/27/2021 7532 FAX #: Reason: pain in region of colostomy EXAMS: CPT CODE: [id number] CT ABD PELVIS W/CONT 62948 PROCEDURE INFORMATION: Exam: CT Abdomen And Pelvis [...] : 1970 Age/S: 51 / M [address] [facility] Unit #: [id number] Loc: [place] [address] Phys: Sabi Urias MD Acct: [id number] Dis Date: Status: REG ER PHONE #: Exam Date: 06/27/2021 1625 FAX #: Reason: pain in region of colostomy EXAMS: CPT CODE: [id number] CT ABD PELVIS W/CONT 41235 <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 There is no evidence of associated intestinal obstruction. 2. No additional acute CT abnormalities of the abdomen or pelvis are identified. SL:131 at 1650 Reported and signed by: Marco Raman M.D. CC: Sabi Urias MD Technologist:Yecenia Carbajal RT(R)(CT) CTDI: DLP: Trnscb Date/Time: 06/27/2021 (1649) [email or web address] Orig Print D/T: S: 06/27/2021 (1649) PAGE 2 Signed ReportBASIC METABOLIC PANEL (NA, K, CL, CO2, GLUCOSE, BUN, CREATININE, CA)2021-06-03 11:32:40 Test Item Value Reference Range Interpretation Comments NA (test code = 133 mmol/L 135-145 L 1633155524) K (test code = 3.7 mmol/L 3.5-5.0 1357319117) CL (test code = 108 mmol/L 98-108 8972405685) CO2 TOTAL (test code = 20 mmol/L 23-31 L 6503399101) AGAP (test code = 2-16 8325627097) BUN (test code = 11 mg/dL 7-23 1351197681) GLUCOSE (test code = 82 mg/dL 70-110 1882831574) CREATININE (test code = 0.96 mg/dL 0.60-1.25 2447184745) CALCIUM (test code = 8.6 mg/dL 8.6-10.6 4656744187) eGFR (test code = mL/min/1.73m2 9012798061) GILBERTO (test code = GILBERTO) Association of [...] tests). Lab Interpretation Abnormal (test code = 24580-6) [facility] METABOLIC PANEL (NA, K, CL, CO2, GLUCOSE, BUN, CREATININE, CA)2021-06-02 11:45:25 Test Item Value Reference Range Interpretation Comments NA (test code = 133 mmol/L 135-145 L 4157739541) K (test code = 3.7 mmol/L 3.5-5.0 4729828715) CL (test code = 111 mmol/L 98-108 H 8107494801) CO2 TOTAL (test code = 17 mmol/L 23-31 L 4675919910) AGAP (test code = 2-16 4009880517) BUN (test code = 15 mg/dL 7-23 8732752413) GLUCOSE (test code = 88 mg/dL 70-110 9738484593) CREATININE (test code = 0.96 mg/dL 0.60-1.25 4375837705) CALCIUM (test code = 8.1 mg/dL 8.6-10.6 L 8809238288) eGFR (test code = mL/min/1.73m2 5924930587) GILBERTO (test code = GILBERTO) Association of [...] tests). Lab Interpretation Abnormal (test code = 41092-2) [facility] METABOLIC PANEL (NA, K, CL, CO2, GLUCOSE, BUN, CREATININE, CA)2021-06-01 17:06:47 Test Item Value Reference Range Interpretation Comments NA (test code = 131 mmol/L 135-145 L 2430772844) K (test code = 3.9 mmol/L 3.5-5.0 Slight 8906288844) hemolysis CL (test code = 108 mmol/L 98-108 1627643469) CO2 TOTAL (test code 15 mmol/L 23-31 L = 9838708260) AGAP (test code = 2-16 6060605168) BUN (test code = 26 mg/dL 7-23 H Slight 9131591262) hemolysis GLUCOSE (test code = 85 mg/dL 70-110 6574248004) CREATININE (test code 1.26 mg/dL 0.60-1.25 H = 3941524369) CALCIUM (test code = 8.1 mg/dL 8.6-10.6 L 7247387097) eGFR (test code = mL/min/1.73m2 7322667414) GILBERTO (test code = GILBERTO) Association of [...] tests). Lab Interpretation Abnormal (test code = 95041-8) [facility] [id number] 05:45:35 Test Item Value Reference Range Interpretation Comments LACTIC ACID (test code = 0.67 mmol/L 0.50-2.20 4991457847) Lab Interpretation (test code = Normal 62677-5) [facility] [id number] 23:44:55 Test Item Value Reference Interpretation Comments Range TROPONIN I (test 0.004 ng/mL See_Comment [Automated code = 2092129755) message] The system which generated this result [...] biotin. Lab Interpretation Normal (test code = 39076-3) [facility] 23:33:28 Test Item Value Reference Range Interpretation Comments LIPASE (test code = 4409576808) 386 U/L 0-220 H Lab Interpretation (test code = Abnormal 22322-9) [facility] (30836)2021-05-31 23:33:28 Test Item Value Reference Range Interpretation Comments NA (test code = 128 mmol/L 135-145 L 0121108720) K (test code = 4.2 mmol/L 3.5-5.0 7586880047) CL (test code = 102 mmol/L 98-108 9484767773) CO2 TOTAL (test code = 13 mmol/L 23-31 L 1954640652) AGAP (test code = 2-16 0446317020) BUN (test code = 47 mg/dL 7-23 H 5039780763) GLUCOSE (test code = 106 mg/dL 70-110 1846832295) CREATININE (test code = 2.38 mg/dL 0.60-1.25 H 6050156253) TOTAL BILI (test code = 0.6 mg/dL 0.1-1.6 4424964381) CALCIUM (test code = 9.5 mg/dL 8.6-10.6 1046696777) T PROTEIN (test code = 7.3 g/dL 6.3-8.2 5121681025) ALBUMIN (test code = 4.6 g/dL 3.5-5.0 7982609679) ALK PHOS (test code = 110 U/L 34-122 3287865583) ALTv (test code = 29 U/L 5-50 1742-6) AST(SGOT) (test code = 33 U/L 13-40 4188491318) eGFR (test code = mL/min/1.73m2 5544330846) GILBERTO (test code = GILBERTO) Association of [...] tests). Lab Interpretation Abnormal (test code = 85547-0) [facility] WITH [id number] 22:57:06 Test Item Value Reference Range Interpretation Comments WBC (test code = See_Comment [Automated 0752-2) message] The sy stem which generated this [...] RDW-SD (test code = 43.2 fL 38.5-51.6 25384-7) RDW-CV (test code = 13.7 % 12.1-15.4 788-0) PLT (test code = See_Comment [Automated 777-3) message] The sy stem which generated this result transmitted reference range : 150 - 328 10*3/ ?L. The reference r meredith was not used to interpret this result as normal/abnormal . MPV (test code = 10.1 fL 9.8-13.0 51972-6) NRBC/100 WBC (test See_Comment [Automat ed code = 0821600687) message] The system which generated this result transmitted reference range : 0.0 - 10.0 /100 WBCs. The refer ence range was not u sed to interpret th is result as normal/abnormal . NRBC x10^3 (test code <0.01 See_Comment [Auto mated = 1316589323) message] The s ystem which generated this result transmitted reference range : 10*3/?L. The reference range was not used to interpret this result as normal/abnormal . GRAN MAT (NEUT) % 68.1 % (test code = 770-8) IMM GRAN % (test code 0.40 % = 9666165746) LYMPH % (test code = 21.9 % 736-9) MONO % (test code = 8.9 % 5905-5) EOS % (test code = 0.3 % 713-8) BASO % (test code = 0.4 % 706-2) GRAN MAT x10^3(ANC) 5.38 10*3/uL 1.99-6.95 (test code = 7536901149) IMM GRAN x10^3 (test 0.03 10*3/uL 0.00-0.06 code = 9793971661) LYMPH x10^3 (test code 1.73 10*3/uL 1.09-3.23 = 731-0) MONO x10^3 (test code 0.70 10*3/uL 0.36-1.02 = 742-7) EOS x10^3 (test code = <0.03 0.06-0.53 L 711-2) BASO x10^3 (test code 0.03 10*3/uL 0.01-0.09 = 704-7) Lab Interpretation Abnormal (test code = 45241-6) [facility] 09:49:03 Test Item Value Reference Range Interpretation Comments MAGNESIUM (test code = 2691078331) 2.0 mg/dL 1.7-2.4 Lab Interpretation (test code = Normal 12190-4) [facility]2021-09-28 09:49:03 Test Item Value Reference Range Interpretation Comments PHOSPHORUS (test code = 0114402658) 4.0 mg/dL 2.5-5.0 Lab Interpretation (test code = Normal 92348-7) [facility] (NA, K, CL, CO2, GLUCOSE, BUN, CREATININE, CA)2021-05-21 09:49:03 Test Item Value Reference Range Interpretation Comments NA (test code = 132 mmol/L 135-145 L 5887539213) K (test code = 4.3 mmol/L 3.5-5.0 8829054448) CL (test code = 105 mmol/L 98-108 1495853144) CO2 TOTAL (test code = 21 mmol/L 23-31 L 8766091074) AGAP (test code = 2-16 5570294150) BUN (test code = 25 mg/dL 7-23 H 7192504467) GLUCOSE (test code = 98 mg/dL 70-110 7203688992) CREATININE (test code = 1.20 mg/dL 0.60-1.25 6873508626) CALCIUM (test code = 8.4 mg/dL 8.6-10.6 L 0253896583) eGFR (test code = mL/min/1.73m2 9523813052) GILBERTO (test code = GILBERTO) Association of [...] tests). Lab Interpretation Abnormal (test code = 59865-4) [facility] with Eurvziemwfbe0321-87-50 09:22:22 Test Item Value Reference Range Interpretation Comments WBC (test code = See_Comment [Automated 9490-2) message] The sy stem which [...] RDW-SD (test code = 45.6 fL 38.5-51.6 57664-2) RDW-CV (test code = 13.7 % 12.1-15.4 788-0) PLT (test code = See_Comment [Automated 777-3) message] The sy stem which generated this result transmitted reference range : 150 - 328 10*3/ ?L. The reference r meredith was not used to interpret this result as normal/abnormal . MPV (test code = 9.7 fL 9.8-13.0 L 41632-3) NRBC/100 WBC (test See_Comment [Automat ed code = 0762339003) message] The system which generated this result transmitted reference range : 0.0 - 10.0 /100 WBCs. The refer ence range was not u sed to interpret th is result as normal/abnormal . NRBC x10^3 (test code <0.01 See_Comment [Auto mated = 8146345467) message] The s ystem which generated this result transmitted reference range : 10*3/?L. The reference range was not used to interpret this result as normal/abnormal . GRAN MAT (NEUT) % 49.4 % (test code = 770-8) IMM GRAN % (test code 0.60 % = 5051850227) LYMPH % (test code = 35.2 % 736-9) MONO % (test code = 11.9 % 5905-5) EOS % (test code = 2.1 % 713-8) BASO % (test code = 0.8 % 706-2) GRAN MAT x10^3(ANC) 2.33 10*3/uL 1.99-6.95 (test code = 2157346214) IMM GRAN x10^3 (test 0.03 10*3/uL 0.00-0.06 code = 9671655800) LYMPH x10^3 (test code 1.66 10*3/uL 1.09-3.23 = 731-0) MONO x10^3 (test code 0.56 10*3/uL 0.36-1.02 = 742-7) EOS x10^3 (test code = 0.10 10*3/uL 0.06-0.53 711-2) BASO x10^3 (test code 0.04 10*3/uL 0.01-0.09 = 704-7) Lab Interpretation Abnormal (test code = 88671-9) [facility] 20:21:19 Test Item Value Reference Range Interpretation Comments LIPASE (test code = 5420443863) 307 U/L 0-220 H Lab Interpretation (test code = Abnormal 16389-8) [facility] (67194)2021-05-20 20:21:19 Test Item Value Reference Range Interpretation Comments NA (test code = 132 mmol/L 135-145 L 5871549090) K (test code = 4.3 mmol/L 3.5-5.0 7420922225) CL (test code = 100 mmol/L 98-108 1950411370) CO2 TOTAL (test code = 18 mmol/L 23-31 L 8860406472) AGAP (test code = 2-16 0646275028) BUN (test code = 32 mg/dL 7-23 H 2763179131) GLUCOSE (test code = 100 mg/dL 70-110 7678441868) CREATININE (test code = 1.76 mg/dL 0.60-1.25 H 7650567600) TOTAL BILI (test code = 0.7 mg/dL 0.1-1.8 4116937023) CALCIUM (test code = 9.6 mg/dL 8.6-10.6 9470851156) T PROTEIN (test code = 7.5 g/dL 6.3-8.2 0570347768) ALBUMIN (test code = 4.7 g/dL 3.5-5.0 9590757639) ALK PHOS (test code = 104 U/L 34-122 6073076572) ALTv (test code = 23 U/L 5-50 1742-6) AST(SGOT) (test code = 29 U/L 13-40 3203358283) eGFR (test code = mL/min/1.73m2 2084712462) GILBERTO (test code = GILBERTO) Association of [...] tests). Lab Interpretation Abnormal (test code = 31238-4) [facility] WITH ORQL2074-65-06 20:15:39 Test Item Value Reference Range Interpretation Comments WBC (test code = See_Comment [Automated message] 6690-2) The system [employer] generated this result transmitted ref erence range: 4.20 - 1 0.70 10*3/?L. The re ference range was not u sed to interpret this result as normal/abnor mal. RBC (test code = See_Comment [Automated message] 789-8) The system [employer] generated this result transmitted ref erence range: [...] RDW-SD (test code 44.8 fL 38.5-51.6 = 47590-4) RDW-CV (test code 13.7 % 12.1-15.4 = 788-0) PLT (test code = See_Comment [Automated message] 777-3) The system [employer] generated this result transmitted ref erence range: 150 - 32 8 10*3/?L. The re ference range was not u sed to interpret this result as normal/abnor mal. MPV (test code = 9.8 fL 9.8-13.0 73894-3) NRBC/100 WBC (test See_Comment [Automat ed message] code = 6460227449) The syste m which generated this result transmitted ref erence range: 0.0 - 10 .0 /100 WBCs. The refer ence range was not u sed to interpret this result as normal/abnor mal. NRBC x10^3 (test <0.01 See_Comment [Automated message] code = 9353179650) The syste m which generated this result transmitted ref erence range: 10*3/?L. The reference range was not used to interpr et this result as normal/abnormal . GRAN MAT (NEUT) % 55.9 % (test code = 770-8) IMM GRAN % (test 0.40 % code = 7208784925) LYMPH % (test code 32.5 % = 736-9) MONO % (test code 9.4 % = 5905-5) EOS % (test code = 1.2 % 713-8) BASO % (test code 0.6 % = 706-2) GRAN MAT 3.87 10*3/uL 1.99-6.95 x10^3(ANC) (test code = 8639086639) IMM GRAN x10^3 0.03 10*3/uL 0.00-0.06 (test code = 1479350892) LYMPH x10^3 (test 2.25 10*3/uL 1.09-3.23 code = 731-0) MONO x10^3 (test 0.65 10*3/uL 0.36-1.02 code = 742-7) EOS x10^3 (test 0.08 10*3/uL 0.06-0.53 code = 711-2) BASO x10^3 (test 0.04 10*3/uL 0.01-0.09 code = 704-7) [facility] Whole Zsktu3863-53-62 20:07:57 Test Item Value Reference Range Interpretation Comments LACTIC ACID (test code = 1.81 mmol/L 0.50-2.20 8110156818) Lab Interpretation (test code = Normal 92888-5) [facility] (NA, K, CL, CO2, GLUCOSE, BUN, CREATININE, CA)2021-05-08 10:32:35 Test Item Value Reference Range Interpretation Comments NA (test code = 135 mmol/L 135-145 8232779272) K (test code = 4.2 mmol/L 3.5-5.0 0026645709) CL (test code = 106 mmol/L 98-108 2751080377) CO2 TOTAL (test code 23 mmol/L 23-31 = 8561606609) AGAP (test code = 2-16 6973620203) BUN (test code = 22 mg/dL 7-23 8415354412) GLUCOSE (test code = 87 mg/dL 70-110 6602082137) CREATININE (test code 1.21 mg/dL 0.60-1.25 = 0183196048) CALCIUM (test code = 8.7 mg/dL 8.6-10.6 9012628697) eGFR (test code = mL/min/1.73m2 7235518356) GILBERTO (test code = GILBERTO) Association of [...] or urine or abnormalities in imaging tests). [facility] Metabolic Panel (NA, K, CL, CO2, GLUCOSE, BUN, CREATININE, CA)2021-05-08 10:32:35 Test Item Value Reference Range Interpretation Comments NA (test code = 135 mmol/L 135-145 1610196080) K (test code = 4.2 mmol/L 3.5-5.0 4224177319) CL (test code = 106 mmol/L 98-108 4997750802) CO2 TOTAL (test code 23 mmol/L 23-31 = 1316303768) AGAP (test code = 2-16 3121535555) BUN (test code = 22 mg/dL 7-23 8595378318) GLUCOSE (test code = 87 mg/dL 70-110 8498268293) CREATININE (test code 1.21 mg/dL 0.60-1.25 = 7426295673) CALCIUM (test code = 8.7 mg/dL 8.6-10.6 7545154177) eGFR (test code = mL/min/1.73m2 9623056004) GILBERTO (test code = GILBERTO) Association of [...] urine or abnormalities in imaging tests). [facility] with Htbcduxgmcfe8364-89-79 10:12:52 Test Item Value Reference Range Interpretation Comments WBC (test code = See_Comment [Automated 2465-2) message] The sy stem which generated this result transmitted reference range : 4.20 - 10.70 10*3/?L. The reference range was not used to interpret this result as normal/abnormal . RBC (test code = See_Comment L [Automated 836-8) message] The sy stem which generated this [...] RDW-SD (test code = 48.4 fL 38.5-51.6 47571-7) RDW-CV (test code = 14.0 % 12.1-15.4 788-0) PLT (test code = See_Comment [Automated 777-3) message] The sy stem which generated this result transmitted reference range : 150 - 328 10*3/ ?L. The reference r meredith was not used to interpret this result as normal/abnormal . MPV (test code = 9.6 fL 9.8-13.0 L 26503-1) NRBC/100 WBC (test See_Comment [Automat ed code = 1873882728) message] The system which generated this result transmitted reference range : 0.0 - 10.0 /100 WBCs. The refer ence range was not u sed to interpret th is result as normal/abnormal . NRBC x10^3 (test code <0.01 See_Comment [Auto mated = 3527561613) message] The s ystem which generated this result transmitted reference range : 10*3/?L. The reference range was not used to interpret this result as normal/abnormal . GRAN MAT (NEUT) % 55.6 % (test code = 770-8) IMM GRAN % (test code 0.20 % = 3510211414) LYMPH % (test code = 31.5 % 736-9) MONO % (test code = 9.9 % 5905-5) EOS % (test code = 2.0 % 713-8) BASO % (test code = 0.8 % 706-2) GRAN MAT x10^3(ANC) 2.76 10*3/uL 1.99-6.95 (test code = 0920157476) IMM GRAN x10^3 (test <0.03 0.00-0.06 code = 8273688501) LYMPH x10^3 (test code 1.56 10*3/uL 1.09-3.23 = 731-0) MONO x10^3 (test code 0.49 10*3/uL 0.36-1.02 = 742-7) EOS x10^3 (test code = 0.10 10*3/uL 0.06-0.53 711-2) BASO x10^3 (test code 0.04 10*3/uL 0.01-0.09 = 704-7) Lab Interpretation Abnormal (test code = 64888-0) [facility] with Aivkmgubnvqj8990-72-76 10:12:52 Test Item Value Reference Range Interpretation Comments WBC (test code = See_Comment [Automated 0590-2) message] The sy stem which generated this [...] RDW-SD (test code = 48.4 fL 38.5-51.6 99658-5) RDW-CV (test code = 14.0 % 12.1-15.4 788-0) PLT (test code = See_Comment [Automated 777-3) message] The sy stem which generated this result transmitted reference range : 150 - 328 10*3/ ?L. The reference r meredith was not used to interpret this result as normal/abnormal . MPV (test code = 9.6 fL 9.8-13.0 L 97166-9) NRBC/100 WBC (test See_Comment [Automat ed code = 7253898517) message] The system which generated this result transmitted reference range : 0.0 - 10.0 /100 WBCs. The refer ence range was not u sed to interpret th is result as normal/abnormal . NRBC x10^3 (test code <0.01 See_Comment [Auto mated = 3904149876) message] The s ystem which generated this result transmitted reference range : 10*3/?L. The reference range was not used to interpret this result as normal/abnormal . GRAN MAT (NEUT) % 55.6 % (test code = 770-8) IMM GRAN % (test code 0.20 % = 2972552464) LYMPH % (test code = 31.5 % 736-9) MONO % (test code = 9.9 % 5905-5) EOS % (test code = 2.0 % 713-8) BASO % (test code = 0.8 % 706-2) GRAN MAT x10^3(ANC) 2.76 10*3/uL 1.99-6.95 (test code = 9191781463) IMM GRAN x10^3 (test <0.03 0.00-0.06 code = 3974525380) LYMPH x10^3 (test code 1.56 10*3/uL 1.09-3.23 = 731-0) MONO x10^3 (test code 0.49 10*3/uL 0.36-1.02 = 742-7) EOS x10^3 (test code = 0.10 10*3/uL 0.06-0.53 711-2) BASO x10^3 (test code 0.04 10*3/uL 0.01-0.09 = 704-7) Lab Interpretation Abnormal (test code = 61672-2) [facility] METABOLIC PANEL (NA, K, CL, CO2, GLUCOSE, BUN, CREATININE, CA)2021-05-08 01:11:57 Test Item Value Reference Range Interpretation Comments NA (test code = 134 mmol/L 135-145 L 1951661489) K (test code = 4.7 mmol/L 3.5-5.0 0907167624) CL (test code = 100 mmol/L 98-108 6502744926) CO2 TOTAL (test code = 24 mmol/L 23-31 0627191432) AGAP (test code = 2-16 2847816541) BUN (test code = 27 mg/dL 7-23 H 1471730348) GLUCOSE (test code = 94 mg/dL 70-110 6868759154) CREATININE (test code = 1.31 mg/dL 0.60-1.25 H 3367690716) CALCIUM (test code = 9.5 mg/dL 8.6-10.6 1260649861) eGFR (test code = mL/min/1.73m2 5297182036) GILBERTO (test code = GILBERTO) Association of [...] tests). Lab Interpretation Abnormal (test code = 03299-4) [facility] (ALB,T.PRO,BILI T,BU/BC,ALT,AST,ALK PHOS)2021-05-08 01:11:57 Test Item Value Reference Range Interpretation Comments TOTAL BILI (test code = 5434089065) 0.8 mg/dL 0.1-1.1 BILI UNCON (test code = 9442509687) 0.2 mg/dL 0.1-1.1 BILI CONJ (test code = 5560949637) 0.0 mg/dL 0.0-0.3 T PROTEIN (test code = 7872300802) 7.1 g/dL 6.3-8.2 ALBUMIN (test code = 9861792106) 4.4 g/dL 3.5-5.0 ALK PHOS (test code = 8181841265) 88 U/L 34-122 ALTv (test code = 1742-6) 40 U/L 5-50 AST(SGOT) (test code = 2521608667) 38 U/L 13-40 Lab Interpretation (test code = Normal 66942-1) [facility] METABOLIC PANEL (NA, K, CL, CO2, GLUCOSE, BUN, CREATININE, CA)2021-05-08 01:11:57 Test Item Value Reference Range Interpretation Comments NA (test code = 134 mmol/L 135-145 L 0340120369) K (test code = 4.7 mmol/L 3.5-5.0 6504797379) CL (test code = 100 mmol/L 98-108 6009146202) CO2 TOTAL (test code = 24 mmol/L 23-31 7953778970) AGAP (test code = 2-16 5080266227) BUN (test code = 27 mg/dL 7-23 H 9900513439) GLUCOSE (test code = 94 mg/dL 70-110 6902554534) CREATININE (test code = 1.31 mg/dL 0.60-1.25 H 2318253883) CALCIUM (test code = 9.5 mg/dL 8.6-10.6 2682078991) eGFR (test code = mL/min/1.73m2 5242819110) GILBERTO (test code = GILBERTO) Association of [...] tests). Lab Interpretation Abnormal (test code = 45259-4) [facility] (ALB,T.PRO,BILI T,BU/BC,ALT,AST,ALK PHOS)2021-05-08 01:11:57 Test Item Value Reference Range Interpretation Comments TOTAL BILI (test code = 5243329145) 0.8 mg/dL 0.1-1.1 BILI UNCON (test code = 3159121195) 0.2 mg/dL 0.1-1.1 BILI CONJ (test code = 0175030517) 0.0 mg/dL 0.0-0.3 T PROTEIN (test code = 0308490178) 7.1 g/dL 6.3-8.2 ALBUMIN (test code = 7308206931) 4.4 g/dL 3.5-5.0 ALK PHOS (test code = [id number]) 88 U/L 34-122 ALTv (test code = 1742-6) 40 U/L 5-50 AST(SGOT) (test code = 1864358239) 38 U/L 13-40 Lab Interpretation (test code = Normal 34918-3) [facility] WITH [id number] 00:59:56 Test Item Value Reference Range Interpretation [...] RDW-SD (test code = 46.9 fL 38.5-51.6 86038-6) RDW-CV (test code = 13.9 % 12.1-15.4 788-0) PLT (test code = See_Comment [Automated 777-3) message] The sy stem which generated this result transmitted reference range : 150 - 328 10*3/ ?L. The reference r meredith was not used to interpret this result as normal/abnormal . MPV (test code = 10.0 fL 9.8-13.0 24601-3) NRBC/100 WBC (test See_Comment [Automat ed code = 4501852010) message] The system which generated this result transmitted reference range : 0.0 - 10.0 /100 WBCs. The refer ence range was not u sed to interpret th is result as normal/abnormal . NRBC x10^3 (test code <0.01 See_Comment [Auto mated = 4484787511) message] The s ystem which generated this result transmitted reference range : 10*3/?L. The reference range was not used to interpret this result as normal/abnormal . GRAN MAT (NEUT) % 53.9 % (test code = 770-8) IMM GRAN % (test code 0.30 % = 3302419271) LYMPH % (test code = 32.0 % 736-9) MONO % (test code = 11.6 % 5905-5) EOS % (test code = 1.6 % 713-8) BASO % (test code = 0.6 % 706-2) GRAN MAT x10^3(ANC) 3.67 10*3/uL 1.99-6.95 (test code = 9322555337) IMM GRAN x10^3 (test <0.03 0.00-0.06 code = 8398591966) LYMPH x10^3 (test code 2.18 10*3/uL 1.09-3.23 = 731-0) MONO x10^3 (test code 0.79 10*3/uL 0.36-1.02 = 742-7) EOS x10^3 (test code = 0.11 10*3/uL 0.06-0.53 711-2) BASO x10^3 (test code 0.04 10*3/uL 0.01-0.09 = 704-7) Lab Interpretation Abnormal (test code = 61886-2) [facility] WITH [id number] 00:59:56 Test Item Value Reference Range Interpretation [...] RDW-SD (test code = 46.9 fL 38.5-51.6 12777-8) RDW-CV (test code = 13.9 % 12.1-15.4 788-0) PLT (test code = See_Comment [Automated 777-3) message] The sy stem which generated this result transmitted reference range : 150 - 328 10*3/ ?L. The reference r meredith was not used to interpret this result as normal/abnormal . MPV (test code = 10.0 fL 9.8-13.0 28490-5) NRBC/100 WBC (test See_Comment [Automat ed code = 2219615335) message] The system which generated this result transmitted reference range : 0.0 - 10.0 /100 WBCs. The refer ence range was not u sed to interpret th is result as normal/abnormal . NRBC x10^3 (test code <0.01 See_Comment [Auto mated = 8458956981) message] The s ystem which generated this result transmitted reference range : 10*3/?L. The reference range was not used to interpret this result as normal/abnormal . GRAN MAT (NEUT) % 53.9 % (test code = 770-8) IMM GRAN % (test code 0.30 % = 5793526960) LYMPH % (test code = 32.0 % 736-9) MONO % (test code = 11.6 % 5905-5) EOS % (test code = 1.6 % 713-8) BASO % (test code = 0.6 % 706-2) GRAN MAT x10^3(ANC) 3.67 10*3/uL 1.99-6.95 (test code = 9514749488) IMM GRAN x10^3 (test <0.03 0.00-0.06 code = 6141671949) LYMPH x10^3 (test code 2.18 10*3/uL 1.09-3.23 = 731-0) MONO x10^3 (test code 0.79 10*3/uL 0.36-1.02 = 742-7) EOS x10^3 (test code = 0.11 10*3/uL 0.06-0.53 711-2) BASO x10^3 (test code 0.04 10*3/uL 0.01-0.09 = 704-7) Lab Interpretation Abnormal (test code = 46861-4) [facility] W/AUTO [id number] 09:20:00 Test Item Value Reference Range Interpretation [...] (test code NO = MDIFF) CBC W/AUTO [id number] 08:59:00 Test Item Value Reference Range Interpretation [...] REQUIRED (test code = MDIFF) BASIC METABOLIC [id number] 08:21:00 Test Item Value Reference Range Interpretation [...] 8.4 mg/dL 8.0-10.5 N CA) BASIC METABOLIC [id number] 08:34:00 Test Item Value Reference Range Interpretation [...] 8.4 mg/dL 8.0-10.5 N CA) CBC W/AUTO [id number] 07:41:00 Test Item Value Reference Range Interpretation [...] = MDIFF) UA RFLX MICR CULT IF [id number] 10:10:00 Test Item Value Reference Range Interpretation [...] Suprapubic Pain Temperature > 100.4 FSpecimen Description: [facility] STREAMBASIC METABOLIC [id number] 04:13:00 Test Item Value Reference Range Interpretation [...] mg/dL 8.0-10.5 N CA) Coronavirus 2019 nCoV [id number] 22:03:00 Test Item Value Reference Range Interpretation Comments Coronavirus 2019 Negative Negative Performed b y certified nCoV 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 Negative result s do not preclude RJWX-SfN-3rzxry tion and should not be u sed as the sole basis forp atient management deci sions. Negative result s should beconsidered in the context of a patient's recent exposures,histo ry, presence of clinical sig ns and symptoms consis tentwith COVID-19. CBC W/AUTO [id number] 21:11:00 Test Item Value Reference Range Interpretation [...] MX#) 0.6 k/mm3 0.1-0.8 N BASIC METABOLIC [id number] 19:00:00 Test Item Value Reference Range Interpretation [...] POCGLU) 92 MG/DL - CT ABD PELVIS W/[id number] 00:00:00 [facility] 1970 Sex: MName: DORA JOSEPH FSED : 1970 Age/S: 51 / M [address] [facility] Unit #: [id number] Loc: [place] [address] Phys: Marcello Benoit MD Acct: [id number] Dis Date: Status: REG KARLIE #: Exam Date: 04/28/2021 1914 FAX #: Reason: epigastric and LLQ pain, R-sided colostomy EXAMS:CPT CODE: [id number] CT ABD PELVIS W/CONT 82508 PROCEDURE INFORMATION: Exam: CT Abdomen And Pelvis [...] DORA JOSEPH FSED : 1970 Age/S: 51 /M [address] [facility] Unit #: [id number] Loc: [place]ise[place] Erazo [address] Phys: Marcello Benoit MD Acct: [id number] Dis Date: Status: REG ER PHONE #: Exam Date: 04/28/2021 1914 FAX #: Reason: epigastric and LLQ pain, R-sided colostomy EXAMS: CPT CODE: [id number] CT ABD PELVIS W/CONT 12834 <Continued> Reproductive: Unremarkable as visualized. Bones/joints: Unremarkable. No acute fracture. Soft tissues: Unremarkable. IMPRESSION: 1. 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 2. Mild long segment bowel wall thickening/mucosal prominence compatible with an enteritis. No evidence for obstruction. at [facility] Reported and signed by: Hector Nichols M.D. CC: Marcello Benoit MD Technologist:Stephanie Albrecht, RT(R)(CT) CTDI: DLP: Trnscb Date/Time: 04/28/2021 (1955) Magi Orig Print D/T: S: 04/28/2021 (1955) PAGE 2 Signed ReportBasic Metabolic Panel (NA, K, CL, CO2, GLUCOSE, BUN, CREATININE, CA)2020-08-23 10:29:00 Test Item Value Reference Range Interpretation Comments NA (test code = 139 mmol/L 135-145 1774262418) K (test code = 4.0 mmol/L 3.5-5 6680022436) CL (test code = 108 mmol/L 98-108 4366551540) CO2 TOTAL (test code = 22 mmol/L 23-31 L 5474707664) AGAP (test code = 2-16 3537820187) BUN (test code = 25 mg/dL 7-23 H 9799820741) GLUCOSE (test code = 91 mg/dL 70-110 3400551004) CREATININE (test code = 1.14 mg/dL 0.6-1.25 9484328685) CALCIUM (test code = 8.9 mg/dL 8.6-10.6 5861952379) eGFR Calculation mL/min/1.73m2 (Non-) (test code = 0508039113) eGFR Calculation mL/min/1.73m2 () (test code = 0880929386) GILBERTO (test code = GILBERTO) Association of [...] tests). Lab Interpretation Abnormal (test code = 85762-7) [facility] [id number] 10:13:00 Test Item Value Reference Range Interpretation Comments WBC (test code = 6690-2) See_Comment [A utomated message] The system [employer] generated this result transmit dain reference range : 4.20 - 10.70 10*3/?L. The reference range was not used to interpret this result as normal/abnormal . RBC (test code = 789-8) See_Comment L [Au tomated message] The system [employer] generated this result transmit dain reference [...] 777-3) See_Comment [Au tomated message] The system [facility] generated this result transmit dain reference range : 150 - 328 10*3/?L. The reference range was not used to interpret this result as normal/abnormal . MPV (test code = 9.0 fL 9.8-13 L 34303-0) RDW-CV (test code = 18.7 % 12.1-15.4 H 788-0) RDW-SD (test code = 59.7 fL 38.5-51.6 H 60924-5) NRBC x10^3 (test code = <0.01 See_Comment [Au tomated message] 1260560010) The system [employer] generated this result transmit dain reference range : 10*3/?L. The reference range was not used to interpret this result as normal/abnormal . NRBC/100 WBC (test code See_Comment [Au tomated message] = 2300303619) The system [facility] generated this result transmit dain reference range : 0.0 - 10.0 /100 WBC s. The reference r meredith was not used to interpret this result as normal/abnormal . IPF % (test code = 8026679893) Lab Interpretation (test Abnormal code = 56635-5) [facility] ([facility] NOW RAPID TESTING)2020-08-23 00:56:00 Test Item Value Reference Range Interpretation Comments SARS-CoV-2 Rapid ID NOW Not Detected Not Detected (test code = 97205-0) GILBERTO (test code = GILBERTO) ID NOW COVID-19 Assay is an isothermal nucleic acid amplification test intended for the qualitative detection of nucleic acid from SARS-CoV-2 viral RNA in nasopharyngeal (UI LEAD DEVELOPER) specimens. It is used under Emergency Use [...] indicated. Lab Interpretation Normal (test code = 82038-5) [facility] (NA, K, CL, CO2, GLUCOSE, BUN, CREATININE, CA)2020-08-22 22:36:00 Test Item Value Reference Range Interpretation Comments NA (test code = 133 mmol/L 135-145 L 9795136943) K (test code = 4.5 mmol/L 3.5-5 3395489339) CL (test code = 104 mmol/L 98-108 7133270898) CO2 TOTAL (test code = 25 mmol/L 23-31 0918725234) AGAP (test code = 2-16 2114884616) BUN (test code = 27 mg/dL 7-23 H 1315336969) GLUCOSE (test code = 94 mg/dL 70-110 8194005552) CREATININE (test code = 1.33 mg/dL 0.6-1.25 H 1620066522) CALCIUM (test code = 9.5 mg/dL 8.6-10.6 6718410368) eGFR Calculation mL/min/1.73m2 (Non-) (test code = 7933170852) eGFR Calculation mL/min/1.73m2 () (test code = 7291693705) GILBERTO (test code = GILBERTO) Association of [...] tests). Lab Interpretation Abnormal (test code = 88423-1) [facility] (ALB, T.PRO, BILI T, BU/BC, ALT, AST, ALK PHOS)2020-08-22 22:36:00 Test Item Value Reference Range Interpretation Comments TOTAL BILI (test code = 8385394545) 0.4 mg/dL 0.1-1.1 BILI UNCON (test code = 6404898604) 0.1 mg/dL 0.1-1.1 BILI CONJ (test code = 5885798561) 0.0 mg/dL 0-0.3 T PROTEIN (test code = 4616520801) 6.8 g/dL 6.3-8.2 ALBUMIN (test code = 4850816654) 4.0 g/dL 3.5-5 ALK PHOS (test code = 4934584416) 78 U/L 34-122 ALTv (test code = 1742-6) 35 U/L 5-50 AST(SGOT) (test code = 9236581733) 29 U/L 13-40 Lab Interpretation (test code = Normal 50859-2) [facility] with [id number] 22:15:00 Test Item Value Reference Range Interpretation [...] (test code = 60.6 fL 38.5-51.6 H 61396-9) RDW-CV (test code = 19.0 % 12.1-15.4 H 788-0) PLT (test code = See_Comment [Automated 777-3) message] The sy stem which generated this result transmitted reference range : 150 - 328 10*3/ ?L. The reference r meredith was not used to interpret this result as normal/abnormal . MPV (test code = 9.3 fL 9.8-13 L 06664-6) NRBC/100 WBC (test See_Comment [Automat ed code = 3912203959) message] The system which generated this result transmitted reference range : 0.0 - 10.0 /100 WBCs. The refer ence range was not u sed to interpret th is result as normal/abnormal . NRBC x10^3 (test code <0.01 See_Comment [Auto mated = 6011625548) message] The s ystem which generated this result transmitted reference range : 10*3/?L. The reference range was not used to interpret this result as normal/abnormal . GRAN MAT (NEUT) % 58.6 % (test code = 770-8) IMM GRAN % (test code 0.60 % = 1170224527) LYMPH % (test code = 28.2 % 736-9) MONO % (test code = 9.5 % 5905-5) EOS % (test code = 2.4 % 713-8) BASO % (test code = 0.7 % 706-2) GRAN MAT x10^3(ANC) 3.14 10*3/uL 1.99-6.95 (test code = 1334138529) IMM GRAN x10^3 (test 0.03 10*3/uL 0-0.06 code = 7470815787) LYMPH x10^3 (test code 1.51 10*3/uL 1.09-3.23 = 731-0) MONO x10^3 (test code 0.51 10*3/uL 0.36-1.02 = 742-7) EOS x10^3 (test code = 0.13 10*3/uL 0.06-0.53 711-2) BASO x10^3 (test code 0.04 10*3/uL 0.01-0.09 = 704-7) Lab Interpretation Abnormal (test code = 53768-5) [facility] HospitalCT SOFT TISSUE NECK W [id number] 00:47:10Impression: 1. Patent aerodigestive tract.2. No discrete [...] glands are normal. Thyroid gland is unremarkable. Ship Carpenter spaces are normal. Buccal spaces are normal. [...] submandibular glands are normal. Thyroid gland is unremarkable.Ship Carpenter spaces are normal. Buccal spaces are normal. [...] is identified.RL: [id number] of Report UnTexas [facility]villeCOVID-19 (ID NOW RAPID TESTING)2020-07-09 23:23:00 Test Item Value Reference Range Interpretation Comments SARS-CoV-2 Rapid ID NOW Not Detected Not Detected (test code = 13061-8) GILBERTO (test code = GILBERTO) ID NOW COVID-19 Assay is an isothermal nucleic acid amplification test intended for the qualitative detection of nucleic acid from SARS-CoV-2 viral RNA in nasopharyngeal (UI LEAD DEVELOPER) specimens. It is used under Emergency Use [...] indicated. Lab Interpretation Normal (test code = 70911-3) [facility] HospitalUrinalysis2020-11-16 23:21:00 Test Item Value Reference Range Interpretation Comments APPEARANCE (test code = Clear Clear 0226381778) COLOR (test code = Yellow Yellow 6309739007) PH (test code = 4.8-8.0 2481051222) SP GRAVITY (test code = 1.003-1.030 9077744195) GLU U QUAL (test code = Normal Normal 2929811573) BLOOD (test code = Negative Negative 9284697417) KETONES (test code = Negative Negative 0933754554) PROTEIN (test code = 30 mg/dL Negative A 2887-8) UROBILIN (test code = Normal Normal 5698650674) BILIRUBIN (test code = Negative Negative 7364710177) NITRITE (test code = Negative Negative 1533329957) LEUK ROGER (test code = Negative Negative 3693720660) RBC/HPF (test code = <1 See_Comment [Autom ated message] 8868231569) The system [employer] generated this result transmitted ref erence range: 0 - 3 HP F. The reference range was not used to int erpret this result as normal/abnormal . WBC/HPF (test code = See_Comment [Autom ated message] 5573360756) The system whic h generated this result transmitted ref erence range: 0 - 5 HP F. The reference range was not used to int erpret this result as normal/abnormal . BACTERIA (test code = Negative Negative 2920150981) MUCOUS (test code = Moderate Negative LPF A 9640801445) HYAL CAST (test code = See_Comment H [Aut omated message] 6187078228) The system [employer] generated this result transmitted ref erence range: <=2 LPF. The reference range was not used to int erpret this result as normal/abnormal . Lab Interpretation (test Abnormal code = 00354-4) [facility] Metabolic Panel (NA, K, CL, CO2, GLUCOSE, BUN, CREATININE, CA)2020-07-09 23:20:00 Test Item Value Reference Range Interpretation Comments NA (test code = 135 mmol/L 135-145 7093781391) K (test code = 3.9 mmol/L 3.5-5 0015941938) CL (test code = 107 mmol/L 98-108 2314332611) CO2 TOTAL (test code = 20 mmol/L 23-31 L 8298385503) AGAP (test code = 2-16 7030952976) BUN (test code = 27 mg/dL 7-23 H 8850884834) GLUCOSE (test code = 86 mg/dL 70-110 5321762563) CREATININE (test code = 1.11 mg/dL 0.6-1.25 6165476214) CALCIUM (test code = 9.0 mg/dL 8.6-10.6 0426614012) eGFR Calculation mL/min/1.73m2 (Non-) (test code = 9981770712) eGFR Calculation mL/min/1.73m2 () (test code = 2096153521) GILBERTO (test code = GILBERTO) Association of [...] tests). Lab Interpretation Abnormal (test code = 58815-8) [facility] HospitalRAPID STREP SCREEN FOR GROUP [id number] 23:11:00 Test Item Value Reference Range Interpretation Comments Streptococcus pyogenes (group A) Negative Negative antigen (test code = 97336-8) Lab Interpretation (test code = Normal 06147-4) [facility] with Upqijtdpogwx6761-69-17 23:02:00 Test Item Value Reference Range Interpretation [...] (test code = 55.5 fL 38.5-51.6 H 86320-7) RDW-CV (test code = 18.9 % 12.1-15.4 H 788-0) PLT (test code = See_Comment [Automated 777-3) message] The sy stem which generated this result transmitted reference range : 150 - 328 10*3/ ?L. The reference r meredith was not used to interpret this result as normal/abnormal . MPV (test code = 8.9 fL 9.8-13 L 31704-9) NRBC/100 WBC (test See_Comment [Automat ed code = 3569844070) message] The system which generated this result transmitted reference range : 0.0 - 10.0 /100 WBCs. The refer ence range was not u sed to interpret th is result as normal/abnormal . NRBC x10^3 (test code <0.01 See_Comment [Auto mated = 2590352064) message] The s ystem which generated this result transmitted reference range : 10*3/?L. The reference range was not used to interpret this result as normal/abnormal . GRAN MAT (NEUT) % 59.4 % (test code = 770-8) IMM GRAN % (test code 0.20 % = 1159206325) LYMPH % (test code = 29.9 % 736-9) MONO % (test code = 9.0 % 5905-5) EOS % (test code = 1.2 % 713-8) BASO % (test code = 0.3 % 706-2) GRAN MAT x10^3(ANC) 3.56 10*3/uL 1.99-6.95 (test code = 5676108506) IMM GRAN x10^3 (test <0.03 0-0.06 code = 2352718264) LYMPH x10^3 (test code 1.79 10*3/uL 1.09-3.23 = 731-0) MONO x10^3 (test code 0.54 10*3/uL 0.36-1.02 = 742-7) EOS x10^3 (test code = 0.07 10*3/uL 0.06-0.53 711-2) BASO x10^3 (test code <0.03 0.01-0.09 = 704-7) Lab Interpretation Abnormal (test code = 47021-0) [facility]inalysis2020-[facility] 13:37:00 Test Item Value Reference Range Interpretation Comments APPEARANCE (test code = Hazy Clear A 0907210225) COLOR (test code = Yellow Yellow 6737119522) PH (test code = 4.8-8.0 3794147255) SP GRAVITY (test code = 1.003-1.030 H 7260630790) GLU U QUAL (test code = Normal Normal 5689315614) BLOOD (test code = Negative Negative 6256066775) KETONES (test code = Negative Negative 2238500940) PROTEIN (test code = Negative Negative 2887-8) UROBILIN (test code = Normal Normal 1125242936) BILIRUBIN (test code = Negative Negative 8262243982) NITRITE (test code = Negative Negative 7593417272) LEUK ROGER (test code = Negative Negative 3669825933) RBC/HPF (test code = See_Comment H [Autom ated message] 4873921418) The system [employer] generated this result transmitted ref erence range: 0 - 3 HP F. The reference range was not used to int erpret this result as normal/abnormal . WBC/HPF (test code = See_Comment [Autom ated message] 8239677531) The system [employer] generated this result transmitted ref erence range: 0 - 5 HP F. The reference range was not used to int erpret this result as normal/abnormal . BACTERIA (test code = Negative Negative 5424380405) MUCOUS (test code = Moderate Negative LPF A 8730638932) CA OXALATE (test code = See_Comment [Au tomated message] 3307547546) The system [employer] generated this result transmitted ref erence range: <=1 HPF. The reference range was not used to int erpret this result as normal/abnormal . SPERM (test code = See_Comment H [Automat ed message] 1519755803) The system [employer] generated this result transmitted ref erence range: <=1 HPF. The reference range was not used to int erpret this result as normal/abnormal . HYAL CAST (test code = See_Comment H [Aut omated message] 3521084019) The system [employer] generated this result transmitted ref erence range: <=2 LPF. The reference range was not used to int erpret this result as normal/abnormal . Lab Interpretation (test Abnormal code = 60898-4) [facility] W [id number] 13:22:00CT Abdomen and Pelvis with intravenous contrast. [...] infection. Left seminal vesicleshowed no significant enhancement. [facility], Radiant Results Inft User - 06/05/2020 [...] sign of infection. Left seminal vesicleshowed no significantenhancement.[facility] [id number] 12:40:00 Test Item Value Reference Range Interpretation Comments TROPONIN I (test <0.012 See_Comment [Automated code = 2261012003) message] The system which generated this result [...] ? Lab Interpretation Normal (test code = 30239-8) [facility] Metabolic Panel (NA, K, CL, CO2, GLUCOSE, BUN, CREATININE, CA)2020-06-05 12:28:00 Test Item Value Reference Range Interpretation Comments NA (test code = 139 mmol/L 135-145 1921056756) K (test code = 4.4 mmol/L 3.5-5 3294136187) CL (test code = 112 mmol/L 98-108 H 4050948392) CO2 TOTAL (test code = 24 mmol/L 23-31 1274329314) AGAP (test code = 2-16 3745360899) BUN (test code = 23 mg/dL 7-23 2313602959) GLUCOSE (test code = 88 mg/dL 70-110 1817466511) CREATININE (test code = 0.96 mg/dL 0.6-1.25 7550691748) CALCIUM (test code = 9.5 mg/dL 8.6-10.6 1195997050) eGFR Calculation mL/min/1.73m2 (Non-) (test code = 5627182068) eGFR Calculation mL/min/1.73m2 () (test code = 3602345141) GILBERTO (test code = GILBERTO) Association of [...] tests). Lab Interpretation Abnormal (test code = 38030-5) [facility] (ALB, T.PRO, BILI T, BU/BC, ALT, AST, ALK PHOS)2020-06-05 12:28:00 Test Item Value Reference Range Interpretation Comments TOTAL BILI (test code = 2446752704) 0.5 mg/dL 0.1-1.1 BILI UNCON (test code = 7030501431) 0.3 mg/dL 0.1-1.1 BILI CONJ (test code = 9766572723) 0.0 mg/dL 0-0.3 T PROTEIN (test code = 4420651290) 6.6 g/dL 6.3-8.2 ALBUMIN (test code = 3708914863) 3.7 g/dL 3.5-5 ALK PHOS (test code = 7441130982) 79 U/L 34-122 ALTv (test code = 1742-6) 23 U/L 5-50 AST(SGOT) (test code = 1880544495) 27 U/L 13-40 Lab Interpretation (test code = Normal 14005-1) [facility] HospitalLipase [id number] 12:28:00 Test Item Value Reference Range Interpretation Comments LIPASE (test code = 6658394874) 150 U/L 0-220 Lab Interpretation (test code = Normal 19947-2) [facility] HospitalCBC with Vbsawbmooins3205-51-84 12:11:00 Test Item Value Reference Range Interpretation Comments WBC (test code = See_Comment [Automated 8490-2) message] The sy stem which generated this [...] (test code = 62.2 fL 38.5-51.6 H 06838-8) RDW-CV (test code = 20.0 % 12.1-15.4 H 788-0) PLT (test code = See_Comment [Automated 777-3) message] The sy stem which generated this result transmitted reference range : 150 - 328 10*3/ ?L. The reference r meredith was not used to interpret this result as normal/abnormal . MPV (test code = 10.0 fL 9.8-13 03252-1) NRBC/100 WBC (test See_Comment [Automat ed code = 6051159892) message] The system which generated this result transmitted reference range : 0.0 - 10.0 /100 WBCs. The refer ence range was not u sed to interpret th is result as normal/abnormal . NRBC x10^3 (test code <0.01 See_Comment [Auto mated = 7615997088) message] The s ystem which generated this result transmitted reference range : 10*3/?L. The reference range was not used to interpret this result as normal/abnormal . GRAN MAT (NEUT) % 65.7 % (test code = 770-8) IMM GRAN % (test code 0.30 % = 5700307190) LYMPH % (test code = 21.2 % 736-9) MONO % (test code = 10.0 % 5905-5) EOS % (test code = 2.3 % 713-8) BASO % (test code = 0.5 % 706-2) GRAN MAT x10^3(ANC) 3.99 10*3/uL 1.99-6.95 (test code = 6501649964) IMM GRAN x10^3 (test <0.03 0-0.06 code = 6112322256) LYMPH x10^3 (test code 1.29 10*3/uL 1.09-3.23 = 731-0) MONO x10^3 (test code 0.61 10*3/uL 0.36-1.02 = 742-7) EOS x10^3 (test code = 0.14 10*3/uL 0.06-0.53 711-2) BASO x10^3 (test code 0.03 10*3/uL 0.01-0.09 = 704-7) Lab Interpretation Abnormal (test code = 75400-3) [facility] HospitalLactic Acid Whole Dpwhd1927-28-79 12:04:00 Test Item Value Reference Range Interpretation Comments LACTIC ACID (test code = 1.23 mmol/L 6063692835) [facility] HospitalIR ABSCESS DRAIN [id number] 14:57:23 Successful abscessogram demonstrated unchanged position of [...] consentwas obtained. Prior to beginning the procedure, [place] Protocol was usedtoconfirm the patient's identity and planned procedure. Maximum sterilebarriers including cap, mask, momin nd hygiene, sterile gloves, sterile gown,large sterile drape and cutaneous antisepsis were used. Theskin overlying the existing drainage catheter in the right upperquadrant of the abdomen was sterilely prepped, draped and infiltrated with1 percent lidocaine. A grain buyer image was documented prior to the injection [...] drainage catheter and with questionablefistulization to bowel. [facility], Radiant Results Inft User - 05/31/2020 [...] consentwas obtained. Prior to beginning the procedure, [place] Protocol was usedto confirm the patient's identity and planned procedure. Maximum sterilebarriers including cap, mask, hand hygiene, sterile gloves, sterile gown,large sterile drape and cutaneous antisepsis were used. The skin overlying the existing drainage catheter in the right upperquadrant of the abdomen was sterilely prepped, draped and infiltrated with1 percent lidocaine. A grain buyer image was documented prior to the injection [...] this study and agree with theabove report. [facility] (NA, K, CL, CO2, GLUCOSE, BUN, CREATININE, CA)2020-05-31 08:13:00 Test Item Value Reference Range Interpretation Comments NA (test code = 135 mmol/L 135-145 1022813451) K (test code = 4.1 mmol/L 3.5-5 7392063343) CL (test code = 99 mmol/L 98-108 3632802516) CO2 TOTAL (test code = 32 mmol/L 23-31 H 4079368979) AGAP (test code = 2-16 2119664467) BUN (test code = 14 mg/dL 7-23 6126445308) GLUCOSE (test code = 89 mg/dL 70-110 0898283866) CREATININE (test code = 0.67 mg/dL 0.6-1.25 3581920012) CALCIUM (test code = 8.2 mg/dL 8.6-10.6 L 4276227828) eGFR Calculation mL/min/1.73m2 (Non-) (test code = 8598240573) eGFR Calculation mL/min/1.73m2 () (test code = 5979121636) GILBERTO (test code = GILBERTO) Association of [...] tests). Lab Interpretation Abnormal (test code = 31019-8) [facility] 08:13:00 Test Item Value Reference Range Interpretation Comments MAGNESIUM (test code = 9658201032) 1.8 mg/dL 1.7-2.4 Lab Interpretation (test code = Normal 55155-7) [facility]2020-10-08 08:13:00 Test Item Value Reference Range Interpretation Comments PHOSPHORUS (test code = 5372932591) 5.2 mg/dL 2.5-5 H Lab Interpretation (test code = Abnormal 39778-0) [facility] WITH [id number] 08:05:00 Test Item Value Reference Range Interpretation [...] (test code = 57.9 fL 38.5-51.6 H 19606-2) RDW-CV (test code = 18.7 % 12.1-15.4 H 788-0) PLT (test code = See_Comment [Automated 777-3) message] The sy stem which generated this result transmitted reference range : 150 - 328 10*3/ ?L. The reference r meredith was not used to interpret this result as normal/abnormal . MPV (test code = 10.3 fL 9.8-13 03276-1) NRBC/100 WBC (test See_Comment [Automat ed code = 4526427894) message] The system which generated this result transmitted reference range : 0.0 - 10.0 /100 WBCs. The refer ence range was not u sed to interpret th is result as normal/abnormal . NRBC x10^3 (test code <0.01 See_Comment [Auto mated = 8714256781) message] The s ystem which generated this result transmitted reference range : 10*3/?L. The reference range was not used to interpret this result as normal/abnormal . GRAN MAT (NEUT) % 56.4 % (test code = 770-8) IMM GRAN % (test code 0.50 % = 7542353063) LYMPH % (test code = 26.2 % 736-9) MONO % (test code = 12.2 % 5905-5) EOS % (test code = 4.2 % 713-8) BASO % (test code = 0.5 % 706-2) GRAN MAT x10^3(ANC) 2.31 10*3/uL 1.99-6.95 (test code = 6120589780) IMM GRAN x10^3 (test <0.03 0-0.06 code = 5958179343) LYMPH x10^3 (test code 1.07 10*3/uL 1.09-3.23 L = 731-0) MONO x10^3 (test code 0.50 10*3/uL 0.36-1.02 = 742-7) EOS x10^3 (test code = 0.17 10*3/uL 0.06-0.53 711-2) BASO x10^3 (test code <0.03 0.01-0.09 = 704-7) Lab Interpretation Abnormal (test code = 56904-1) [facility] METABOLIC PANEL (NA, K, CL, CO2, GLUCOSE, BUN, CREATININE, CA)2020-05-30 09:04:00 Test Item Value Reference Range Interpretation Comments NA (test code = 138 mmol/L 135-145 2062688512) K (test code = 4.4 mmol/L 3.5-5 7068579184) CL (test code = 99 mmol/L 98-108 6485035491) CO2 TOTAL (test code = 33 mmol/L 23-31 H 9741174587) AGAP (test code = 2-16 4530002853) BUN (test code = 18 mg/dL 7-23 9194577148) GLUCOSE (test code = 86 mg/dL 70-110 6282833149) CREATININE (test code = 0.61 mg/dL 0.6-1.25 3317802156) CALCIUM (test code = 8.1 mg/dL 8.6-10.6 L 4064417040) eGFR Calculation mL/min/1.73m2 (Non-) (test code = 9217191463) eGFR Calculation mL/min/1.73m2 () (test code = 6590672627) GILBERTO (test code = GILBERTO) Association of [...] tests). Lab Interpretation Abnormal (test code = 08831-0) [facility]-10-07 09:04:00 Test Item Value Reference Range Interpretation Comments MAGNESIUM (test code = 8160373074) 2.0 mg/dL 1.7-2.4 Lab Interpretation (test code = Normal 89000-2) [facility]2020-10-07 09:04:00 Test Item Value Reference Range Interpretation Comments PHOSPHORUS (test code = 9101103092) 4.6 mg/dL 2.5-5 Lab Interpretation (test code = Normal 79783-8) [facility] (NA, K, CL, CO2, GLUCOSE, BUN, CREATININE, CA)2020-05-29 07:31:00 Test Item Value Reference Range Interpretation Comments NA (test code = 135 mmol/L 135-145 5519166172) K (test code = 4.0 mmol/L 3.5-5 9790403177) CL (test code = 100 mmol/L 98-108 4914163627) CO2 TOTAL (test code = 32 mmol/L 23-31 H 1506120515) AGAP (test code = 2-16 7730211387) BUN (test code = 19 mg/dL 7-23 1127535658) GLUCOSE (test code = 86 mg/dL 70-110 6935751345) CREATININE (test code = 0.68 mg/dL 0.6-1.25 3442839057) CALCIUM (test code = 8.0 mg/dL 8.6-10.6 L 4548155296) eGFR Calculation mL/min/1.73m2 (Non-) (test code = 5981915089) eGFR Calculation mL/min/1.73m2 () (test code = 2915047392) GILBERTO (test code = GILBERTO) Association of [...] tests). Lab Interpretation Abnormal (test code = 63358-0) [facility]2020-10-06 07:31:00 Test Item Value Reference Range Interpretation Comments MAGNESIUM (test code = 9527036083) 1.6 mg/dL 1.7-2.4 L Lab Interpretation (test code = Abnormal 32361-4) [facility]2020-10-06 07:31:00 Test Item Value Reference Range Interpretation Comments PHOSPHORUS (test code = 7354970931) 3.5 mg/dL 2.5-5 Lab Interpretation (test code = Normal 56565-6) [facility] ABSCESS [facility](AEROBIC/ANAEROBIC) 2020-05-28 12:35:00 Test Item Value Reference Range Interpretation Comments Aspirate or Abscess No aerobic/anaerobic Culture (test code = organisms isolated 07764-9) Gram stain (test code Occasional (Rare) = 664-3) Mononuclear cells [facility] (NA, K, CL, CO2, GLUCOSE, BUN, CREATININE, CA)2020-05-28 09:36:00 Test Item Value Reference Range Interpretation Comments NA (test code = 136 mmol/L 135-145 5868274638) K (test code = 4.3 mmol/L 3.5-5 8151651728) CL (test code = 102 mmol/L 98-108 5172040659) CO2 TOTAL (test code = 31 mmol/L 23-31 3773795733) AGAP (test code = 2-16 4547417384) BUN (test code = 25 mg/dL 7-23 H 5292973070) GLUCOSE (test code = 87 mg/dL 70-110 4515604670) CREATININE (test code = 0.65 mg/dL 0.6-1.25 5758564609) CALCIUM (test code = 8.2 mg/dL 8.6-10.6 L 8253811568) eGFR Calculation mL/min/1.73m2 (Non-) (test code = 4265372710) eGFR Calculation mL/min/1.73m2 () (test code = 5113202215) GILBERTO (test code = GILBERTO) Association of [...] tests). Lab Interpretation Abnormal (test code = 27652-2) [facility]2020-10-05 09:36:00 Test Item Value Reference Range Interpretation Comments MAGNESIUM (test code = 2847910167) 1.6 mg/dL 1.7-2.4 L Lab Interpretation (test code = Abnormal 14568-0) [facility]2020-10-05 09:36:00 Test Item Value Reference Range Interpretation Comments PHOSPHORUS (test code = 9491488642) 2.6 mg/dL 2.5-5 Lab Interpretation (test code = Normal 03878-9) [facility] (NA, K, CL, CO2, GLUCOSE, BUN, CREATININE, CA)2020-05-27 10:13:00 Test Item Value Reference Range Interpretation Comments NA (test code = 135 mmol/L 135-145 6553890115) K (test code = 3.9 mmol/L 3.5-5 9573374927) CL (test code = 103 mmol/L 98-108 3268274811) CO2 TOTAL (test code = 28 mmol/L 23-31 9182911261) AGAP (test code = 2-16 5412516418) BUN (test code = 20 mg/dL 7-23 9571284462) GLUCOSE (test code = 95 mg/dL 70-110 5978648607) CREATININE (test code = 0.67 mg/dL 0.6-1.25 6078684877) CALCIUM (test code = 8.2 mg/dL 8.6-10.6 L 6678831551) eGFR Calculation mL/min/1.73m2 (Non-) (test code = 9285158180) eGFR Calculation mL/min/1.73m2 () (test code = 7608586898) GILBERTO (test code = GILBERTO) Association of [...] tests). Lab Interpretation Abnormal (test code = 89451-2) [facility]2020-10-04 10:13:00 Test Item Value Reference Range Interpretation Comments MAGNESIUM (test code = 5263197132) 1.5 mg/dL 1.7-2.4 L Lab Interpretation (test code = Abnormal 83875-0) [facility]2020-10-04 10:13:00 Test Item Value Reference Range Interpretation Comments PHOSPHORUS (test code = 6318272401) 3.4 mg/dL 2.5-5 Lab Interpretation (test code = Normal 13481-1) [facility] CH[facility] ABSCESS [id number] 17:06:27 Successful removal of the left upper quadrant drainage catheter. Replacement of the right upper quadrant catheter into the most superiorsegment of the collection with a new 10 Slovenian pigtail catheter.PLAN: This tube should be flushed with 10 of saline twice a day. ?We willcontinue to monitor the output of the catheter while the patient isin-house. If the patient is discharged prior to catheter removal, follow-upwith VIR is recommended in 7-10 ?days. This can be arranged by [id number]. Preliminary Report Dictated by Resident: Johnny Tilley [...] from those actually performing theprocedure. Please see [facility] for sedation time. RADIATION DOSE: 33.0 mGy. TECHNIQUE: The risks, benefits and alternativeswere discussed and informed consentwas obtained. Prior to beginning the procedure, [place] Protocol was usedto confirm the patient's identity [...] of the pigtailcatheters within the respective collections. [facility], Radiant Results Inft User - 05/26/2020 12:07 PM CDTEXAMINATION: 1. PERCUTANEOUS PERIHEPATIC DRAINAGE REPLACEMENT2. LEFT UPPER QUADRANT DRAINAGE REMOVAL.HISTORY: 50 years-old; Male; abscess ATTENDEES: Attending radiologist: Nixon Perez; Resident: Dr. Johnny Tilley;Contributing VIR Fellow: Dr. Vance Stafford.SEDATION: Moderate sedation was administered under the attendingphysician's direction and continuous monitoring by a trained nursespecialist who was independent from those actually performing theprocedure. Please see Epic for sedation time.RADIATION DOSE: 33.0 mGy.TECHNIQUE: The risks, benefits andalternatives were discussed and informed consentwas obtained. Prior to beginning the procedure, [place] Protocol was usedto confirm the patient's identity [...] of the collection with a new 10 Slovenian pigtail catheter.PLAN: This tube should be flushed with 10 of saline twice a day. We willcontinue to monitor the output of the catheter while the patient isin-house. If the patient is discharged prior to catheter removal, follow-upwith VIR is recommended in 7-10 days. This can be arranged by [id number].Preliminary Report Dictated by Resident: Johnny Benitez, as teaching physician, was present during the entire procedure and/orduring the botello components.Nixon Damon MD., have reviewed this study and agree with theabove report.[facility] ABSCESS BULLA OR CYST BY [id number] 17:06:16 Successful ultrasound-guided aspiration of intrahepatic small [...] consentwas obtained. Prior to beginning the procedure, [place] Protocol was usedto confirm the patient's identity and planned procedure. Maximum sterilebarriers including cap, mask, hand hygiene, sterile gloves, sterile gown,large sterile drape and cutaneous antisepsis were used. The skin overlying the right mid abdomen was sterilely prepped, draped andinfiltrated with 1percent lidocaine. The targeted infrahepatic small collection was then accessed with [id number] micropuncture needle using imaging guidance which includedultrasound. [...] consentwas obtained. Prior to beginning the procedure, [place] Protocol was usedto confirm the patient's identity and planned procedure. Maximum sterilebarriers including cap, mask, hand hygiene, sterile gloves, sterile gown,large sterile drape and cutaneous antisepsis were used. The skin overlying the right mid abdomen was sterilely prepped, draped andinfiltrated with 1 percent lidocaine. The targeted infrahepatic small collection was then accessed with [id number] micropuncture needle using imaging guidance which includ [...] reviewed this study and agree with theabove report.[facility] METABOLIC PANEL (NA, K, CL, CO2, GLUCOSE, BUN, CREATININE, CA) 2020-05-26 10:13:00 Test Item Value Reference Range Interpretation Comments NA (test code = 135 mmol/L 135-145 7984818672) K (test code = 4.4 mmol/L 3.5-5 7777965163) CL (test code = 107 mmol/L 98-108 7711161429) CO2 TOTAL (test code = 23 mmol/L 23-31 4519644274) AGAP (test code = 2-16 0320785066) BUN (test code = 18 mg/dL 7-23 2482751148) GLUCOSE (test code = 101 mg/dL 70-110 3298241672) CREATININE (test code = 0.61 mg/dL 0.6-1.25 9874342856) CALCIUM (test code = 8.1 mg/dL 8.6-10.6 L 3452259868) eGFR Calculation mL/min/1.73m2 (Non-) (test code = 2717390190) eGFR Calculation mL/min/1.73m2 () (test code = 0782182048) GILBERTO (test code = GILBERTO) Association of [...] tests). Lab Interpretation Abnormal (test code = 66066-8) [facility]2020-10-03 10:13:00 Test Item Value Reference Range Interpretation Comments MAGNESIUM (test code = 1161543053) 1.7 mg/dL 1.7-2.4 Lab Interpretation (test code = Normal 91583-5) [facility]2020-10-03 10:13:00 Test Item Value Reference Range Interpretation Comments PHOSPHORUS (test code = 1216641939) 3.4 mg/dL 2.5-5 Lab Interpretation (test code = Normal 55977-8) [facility]XR [id number] 23:20:33 Positioning dictated draining the right upper [...] are identified. No acutebony abnormality is present. [facility], Radiant Results Inft User - 05/25/2020 [...] reviewed this study and agree with theabove report.[facility] (NA, K, CL, CO2, GLUCOSE, BUN, CREATININE, CA)2020-05-25 22:49:00 Test Item Value Reference Range Interpretation Comments NA (test code = 136 mmol/L 135-145 6535217551) K (test code = 4.5 mmol/L 3.5-5 3221459207) CL (test code = 105 mmol/L 98-108 8177906351) CO2 TOTAL (test code = 22 mmol/L 23-31 L 7399875089) AGAP (test code = 2-16 7696912748) BUN (test code = 24 mg/dL 7-23 H 4870063815) GLUCOSE (test code = 101 mg/dL 70-110 2848841200) CREATININE (test code = 0.74 mg/dL 0.6-1.25 6316317036) CALCIUM (test code = 8.6 mg/dL 8.6-10.6 3324417264) eGFR Calculation mL/min/1.73m2 (Non-) (test code = 8994999356) eGFR Calculation mL/min/1.73m2 () (test code = 1923820640) GILBERTO (test code = GILBERTO) Association of [...] tests). Lab Interpretation Abnormal (test code = 22384-0) [facility]2020-10-02 22:11:00 Test Item Value Reference Range Interpretation Comments MAGNESIUM (test code = 9122262363) 2.0 mg/dL 1.7-2.4 Lab Interpretation (test code = Normal 12176-5) [facility]2020-10-02 22:11:00 Test Item Value Reference Range Interpretation Comments PHOSPHORUS (test code = 5503968580) 3.1 mg/dL 2.5-5 Lab Interpretation (test code = Normal 50620-2) [facility] WITH [id number] 21:51:00 Test Item Value Reference Range Interpretation [...] (test code = 53.1 fL 38.5-51.6 H 98651-7) RDW-CV (test code = 17.9 % 12.1-15.4 H 788-0) PLT (test code = See_Comment [Automated 777-3) message] The sy stem which generated this result transmitted reference range : 150 - 328 10*3/ ?L. The reference r meredith was not used to interpret this result as normal/abnormal . MPV (test code = 9.1 fL 9.8-13 L 87493-6) NRBC/100 WBC (test See_Comment [Automat ed code = 0948427092) message] The system which generated this result transmitted reference range : 0.0 - 10.0 /100 WBCs. The refer ence range was not u sed to interpret th is result as normal/abnormal . NRBC x10^3 (test code <0.01 See_Comment [Auto mated = 9765983471) message] The s ystem which generated this result transmitted reference range : 10*3/?L. The reference range was not used to interpret this result as normal/abnormal . GRAN MAT (NEUT) % 73.4 % (test code = 770-8) IMM GRAN % (test code 0.50 % = 0049162201) LYMPH % (test code = 17.9 % 736-9) MONO % (test code = 5.2 % 5905-5) EOS % (test code = 2.5 % 713-8) BASO % (test code = 0.5 % 706-2) GRAN MAT x10^3(ANC) 4.05 10*3/uL 1.99-6.95 (test code = 8869376448) IMM GRAN x10^3 (test 0.03 10*3/uL 0-0.06 code = 1461900513) LYMPH x10^3 (test code 0.99 10*3/uL 1.09-3.23 L = 731-0) MONO x10^3 (test code 0.29 10*3/uL 0.36-1.02 L = 742-7) EOS x10^3 (test code = 0.14 10*3/uL 0.06-0.53 711-2) BASO x10^3 (test code 0.03 10*3/uL 0.01-0.09 = 704-7) Lab Interpretation Abnormal (test code = 03028-9) [facility] METABOLIC PANEL (NA, K, CL, CO2, GLUCOSE, BUN, CREATININE, CA)2020-05-25 09:24:00 Test Item Value Reference Range Interpretation Comments NA (test code = 135 mmol/L 135-145 7357009077) K (test code = 5.3 mmol/L 3.5-5 H Slight 1204711169) hemolysis CL (test code = 104 mmol/L 98-108 9238628607) CO2 TOTAL (test code 24 mmol/L 23-31 = 6077785005) AGAP (test code = 2-16 0820954338) BUN (test code = 22 mg/dL 7-23 Slight 0807561531) hemolysis GLUCOSE (test code = 96 mg/dL 70-110 2205851277) CREATININE (test code 0.73 mg/dL 0.6-1.25 = 0103551707) CALCIUM (test code = 8.2 mg/dL 8.6-10.6 L 3017174170) eGFR Calculation mL/min/1.73m2 (Non-) (test code = 1107628063) eGFR Calculation mL/min/1.73m2 () (test code = 3154037286) GILBERTO (test code = GILBERTO) Association of [...] tests). Lab Interpretation Abnormal (test code = 73849-5) [facility]02 09:24:00 Test Item Value Reference Range Interpretation Comments MAGNESIUM (test code = 9608186560) 2.3 mg/dL 1.7-2.4 Lab Interpretation (test code = Normal 34035-6) [facility]2020-10-02 09:24:00 Test Item Value Reference Range Interpretation Comments PHOSPHORUS (test code = 6607523646) 3.4 mg/dL 2.5-5 Lab Interpretation (test code = Normal 88760-0) [facility] METABOLIC PANEL (NA, K, CL, CO2, GLUCOSE, BUN, CREATININE, CA)2020-05-24 21:00:00 Test Item Value Reference Range Interpretation Comments NA (test code = 135 mmol/L 135-145 0287208187) K (test code = 4.3 mmol/L 3.5-5 3969459577) CL (test code = 102 mmol/L 98-108 0427771498) CO2 TOTAL (test code = 25 mmol/L 23-31 2962100054) AGAP (test code = 2-16 6916176732) BUN (test code = 20 mg/dL 7-23 8017616935) GLUCOSE (test code = 102 mg/dL 70-110 1795792171) CREATININE (test code 0.97 mg/dL 0.6-1.25 = 0639295386) CALCIUM (test code = 9.0 mg/dL 8.6-10.6 1449458820) eGFR Calculation mL/min/1.73m2 (Non-) (test code = 4736201932) eGFR Calculation mL/min/1.73m2 () (test code = 5969839995) GILBERTO (test code = GILBERTO) Association of [...] or urine or abnormalities in imaging tests). [facility] 21:00:00 Test Item Value Reference Range Interpretation Comments MAGNESIUM (test code = 3515363325) 1.5 mg/dL 1.7-2.4 L Lab Interpretation (test code = Abnormal 06499-6) [facility]2020-10-01 20:58:00 Test Item Value Reference Range Interpretation Comments PHOSPHORUS (test code = 6205253986) 3.3 mg/dL 2.5-5 Lab Interpretation (test code = Normal 72594-8) [facility] with [id number] 11:31:00 Test Item Value Reference Range Interpretation [...] (test code = 51.9 fL 38.5-51.6 H 09050-8) RDW-CV (test code = 17.6 % 12.1-15.4 H 788-0) PLT (test code = See_Comment H [Automated 777-3) message] The sy stem which generated this result transmitted reference range : 150 - 328 10*3/ ?L. The reference r meredith was not used to interpret this result as normal/abnormal . MPV (test code = 9.0 fL 9.8-13 L 20191-0) NRBC/100 WBC (test See_Comment [Automat ed code = 7789350430) message] The system which generated this result transmitted reference range : 0.0 - 10.0 /100 WBCs. The refer ence range was not u sed to interpret th is result as normal/abnormal . NRBC x10^3 (test code <0.01 See_Comment [Auto mated = 6600850065) message] The s ystem which generated this result transmitted reference range : 10*3/?L. The reference range was not used to interpret this result as normal/abnormal . GRAN MAT (NEUT) % 66.0 % (test code = 770-8) IMM GRAN % (test code 0.20 % = 3775104949) LYMPH % (test code = 20.3 % 736-9) MONO % (test code = 10.4 % 5905-5) EOS % (test code = 2.6 % 713-8) BASO % (test code = 0.5 % 706-2) GRAN MAT x10^3(ANC) 4.33 10*3/uL 1.99-6.95 (test code = 2789773367) IMM GRAN x10^3 (test <0.03 0-0.06 code = 9028080139) LYMPH x10^3 (test code 1.33 10*3/uL 1.09-3.23 = 731-0) MONO x10^3 (test code 0.68 10*3/uL 0.36-1.02 = 742-7) EOS x10^3 (test code = 0.17 10*3/uL 0.06-0.53 711-2) BASO x10^3 (test code 0.03 10*3/uL 0.01-0.09 = 704-7) Lab Interpretation Abnormal (test code = 10926-1) [facility] [id number] 17:39:05 Since 05/19/2020 slight increase in size [...] perihepatic are unchanged with drains insitu as above.[facility] Metabolic Panel (NA, K, CL, CO2, Glucose, BUN, Creatinine, CA)2020-05-23 10:25:00 Test Item Value Reference Range Interpretation Comments NA (test code = 135 mmol/L 135-145 7728902355) K (test code = 3.7 mmol/L 3.5-5 1976309906) CL (test code = 105 mmol/L 98-108 0504989422) CO2 TOTAL (test code = 24 mmol/L 23-31 3796699737) AGAP (test code = 2-16 0970151020) BUN (test code = 19 mg/dL 7-23 3104576219) GLUCOSE (test code = 117 mg/dL 70-110 H 2670479365) CREATININE (test code = 0.74 mg/dL 0.6-1.25 7712346873) CALCIUM (test code = 7.3 mg/dL 8.6-10.6 L 0871479757) eGFR Calculation mL/min/1.73m2 (Non-) (test code = 8670532281) eGFR Calculation mL/min/1.73m2 () (test code = 3328776957) GILBERTO (test code = GILBERTO) Association of [...] tests). Lab Interpretation Abnormal (test code = 98620-5) [facility]-19 [id number] 07:40:00 Test Item Value Reference Range Interpretation Comments SARS-CoV-2 Rapid ID NOW Not Detected Not Detected (test code = 26214-0) GILBERTO (test code = GILBERTO) ID NOW COVID-19 Assay is an isothermal nucleic acid amplification test intended for the qualitative detection of nucleic acid from SARS-CoV-2 viral RNA in nasopharyngeal (UI LE[employer] DEVELOPER) specimens. It is used under Emergency Use [...] indicated. Lab Interpretation Normal (test code = 84131-3) [facility]2020-09-29 22:41:00 Test Item Value Reference Range Interpretation Comments APPEARANCE (test code = Hazy Clear A 7059515738) COLOR (test code = Yellow Yellow 8288182116) PH (test code = 4.8-8.0 1596245685) SP GRAVITY (test code = 1.003-1.030 4168999959) GLU U QUAL (test code = Normal Normal 2878887359) BLOOD (test code = Negative Negative 2417027209) KETONES (test code = Negative Negative 1917708369) PROTEIN (test code = 30 mg/dL Negative A 2887-8) UROBILIN (test code = Normal Normal 6618426244) BILIRUBIN (test code = Negative Negative 6275919273) NITRITE (test code = Negative Negative 0467531894) LEUK ROGER (test code = Negative Negative 4160335556) RBC/HPF (test code = See_Comment H [Autom ated message] 2691246383) The system [employer] generated this result transmitted ref erence range: 0 - 3 HP F. The reference range was not used to int erpret this result as normal/abnormal . WBC/HPF (test code = See_Comment H [Autom ated message] 2680181086) The system [employer] generated this result transmitted ref erence range: 0 - 5 HP F. The reference range was not used to int erpret this result as normal/abnormal . BACTERIA (test code = Negative Negative 8977058641) MUCOUS (test code = Moderate Negative LPF A 9924831264) SQ EPITH (test code = See_Comment [Auto mated message] 1736785834) The system [employer] generated this result transmitted ref erence range: <=2 HPF. The reference range was not used to int erpret this result as normal/abnormal . CA OXALATE (test code = See_Comment H [Au tomated message] 2574734845) The system [employer] generated this result transmitted ref erence range: <=1 HPF. The reference range was not used to int erpret this result as normal/abnormal . HYAL CAST (test code = See_Comment H [Aut omated message] 2186893193) The system [employer] generated this result transmitted ref erence range: <=2 LPF. The reference range was not used to int erpret this result as normal/abnormal . Lab Interpretation (test Abnormal code = 41934-0) [facility] Metabolic Panel (NA, K, CL, CO2, GLUCOSE, BUN, CREATININE, CA)2020-05-22 21:46:00 Test Item Value Reference Range Interpretation Comments NA (test code = 134 mmol/L 135-145 L 8895710739) K (test code = 5.0 mmol/L 3.5-5 5626497641) CL (test code = 103 mmol/L 98-108 9808920272) CO2 TOTAL (test code = 25 mmol/L 23-31 9880218979) AGAP (test code = 2-16 7778095158) BUN (test code = 24 mg/dL 7-23 H 0809400801) GLUCOSE (test code = 102 mg/dL 70-110 7804135726) CREATININE (test code = 0.87 mg/dL 0.6-1.25 2732527191) CALCIUM (test code = 9.2 mg/dL 8.6-10.6 3980783091) eGFR Calculation mL/min/1.73m2 (Non-) (test code = 3306409055) eGFR Calculation mL/min/1.73m2 () (test code = 3060667714) GILBERTO (test code = GILBERTO) Association of [...] tests). Lab Interpretation Abnormal (test code = 59100-1) [facility] (ALB, T.PRO, BILI T, BU/BC, ALT, AST, ALK PHOS)2020-05-22 21:46:00 Test Item Value Reference Range Interpretation Comments TOTAL BILI (test code = 9694809206) 0.4 mg/dL 0.1-1.1 BILI UNCON (test code = 8754899191) 0.2 mg/dL 0.1-1.1 BILI CONJ (test code = 0478083475) 0.0 mg/dL 0-0.3 T PROTEIN (test code = 9135564449) 6.5 g/dL 6.3-8.2 ALBUMIN (test code = 9215205081) 3.6 g/dL 3.5-5 ALK PHOS (test code = 6588379950) 96 U/L 34-122 ALTv (test code = 1742-6) 22 U/L 5-50 AST(SGOT) (test code = 0618145794) 28 U/L 13-40 Lab Interpretation (test code = Normal 73162-3) [facility] HospitalLip[facility] Hsqkz1798-09-05 21:46:00 Test Item Value Reference Range Interpretation Comments LIPASE (test code = 8461041477) 95 U/L 0-220 Lab Interpretation (test code = Normal 78688-6) [facility]2020-[facility]29 21:46:00 Test Item Value Reference Range Interpretation Comments APTT Patient (test code = See_Comment [ Automated message] 3173-2) The system [employer] generated this result transmitted ref erence range: 26 - 36 Seconds. The re ference range was not u sed to interpret this result as normal/abnor mal. Lab Interpretation (test Normal code = 57410-5) [facility] HospitalProthrom[facility] Time (PT) / [id number] 21:46:00 Test Item Value Reference Range Interpretation Comments PROTIME PATIENT (test See_Comment H [Auto mated message] code = 5964-2) The system [employer] generated this result transmitted ref erence range: 10.1 - 1 2.6 Seconds. The reference range was not used to int erpret this result as normal/abnormal . INR (test code = 6301-6) Nor mal INR <1.1; Warfarin Therap eutic range 2.0 to 3. 0 or 2.5 to 3.5, dep ending upon the indica tions. Lab Interpretation (test Abnormal code = 97786-1) [facility] with Avjsnijhnbus2435-20-74 21:41:00 Test Item Value Reference Range Interpretation [...] (test code = 53.0 fL 38.5-51.6 H 70514-0) RDW-CV (test code = 17.6 % 12.1-15.4 H 788-0) PLT (test code = See_Comment H [Automated 777-3) message] The sy stem which generated this result transmitted reference range : 150 - 328 10*3/ ?L. The reference r meredith was not used to interpret this result as normal/abnormal . MPV (test code = 9.1 fL 9.8-13 L 39154-1) NRBC/100 WBC (test See_Comment [Automat ed code = 3002365100) message] The system which generated this result transmitted reference range : 0.0 - 10.0 /100 WBCs. The refer ence range was not u sed to interpret th is result as normal/abnormal . NRBC x10^3 (test code <0.01 See_Comment [Auto mated = 5439449997) message] The s ystem which generated this result transmitted reference range : 10*3/?L. The reference range was not used to interpret this result as normal/abnormal . GRAN MAT (NEUT) % 77.4 % (test code = 770-8) IMM GRAN % (test code 0.50 % = 8748979985) LYMPH % (test code = 15.8 % 736-9) MONO % (test code = 4.9 % 5905-5) EOS % (test code = 0.8 % 713-8) BASO % (test code = 0.6 % 706-2) GRAN MAT x10^3(ANC) 5.04 10*3/uL 1.99-6.95 (test code = 4315321878) IMM GRAN x10^3 (test 0.03 10*3/uL 0-0.06 code = 8931215617) LYMPH x10^3 (test code 1.03 10*3/uL 1.09-3.23 L = 731-0) MONO x10^3 (test code 0.32 10*3/uL 0.36-1.02 L = 742-7) EOS x10^3 (test code = 0.05 10*3/uL 0.06-0.53 L 711-2) BASO x10^3 (test code 0.04 10*3/uL 0.01-0.09 = 704-7) Lab Interpretation Abnormal (test code = 40074-7) [facility] 1 Fasf2802-48-76 21:19:32CHEST ONE VIEW HISTORY: ?Weakness TECHNIQUE: ?AP [...] the left costophrenic angle suggests a leftpleural effusion.[facility]OVID[facility] (ID NOW RAPID TESTING) 2020-05-20 10:09:00 Test Item Value Reference Range Interpretation Comments SARS-CoV-2 Rapid ID NOW Not Detected Not Detected (test code = 91467-5) GILBERTO (test code = GILBERTO) ID NOW COVID-19 Assay is an isothermal nucleic acid amplification test intended for the qualitative detection of nucleic acid from SARS-CoV-2 viral RNA in nasopharyngeal (UI LEAD DEVELOPER) specimens. It is used under Emergency Use [...] indicated. Lab Interpretation Normal (test code = 59096-7) [facility] HospitalURINALYSIS2020-09-27 10:07:00 Test Item Value Reference Range Interpretation Comments APPEARANCE (test code = Clear Clear 3358506284) COLOR (test code = Yellow Yellow 4363507587) PH (test code = 4.8-8.0 2163744179) SP GRAVITY (test code = 1.003-1.030 H 0635696380) GLU U QUAL (test code = Normal Normal 0315986183) BLOOD (test code = Negative Negative 2623262673) KETONES (test code = Negative Negative 2690942288) PROTEIN (test code = Negative Negative 2887-8) UROBILIN (test code = Normal Normal 4155432148) BILIRUBIN (test code = Negative Negative 9502562726) NITRITE (test code = Negative Negative 3344225990) LEUK ROGER (test code = Negative Negative 3382086417) RBC/HPF (test code = See_Comment [Autom ated message] 2008900788) The system [employer] generated this result transmitted ref erence range: 0 - 3 HP F. The reference range was not used to int erpret this result as normal/abnormal . WBC/HPF (test code = See_Comment [Autom ated message] 4681184523) The system [employer] generated this result transmitted ref erence range: 0 - 5 HP F. The reference range was not used to int erpret this result as normal/abnormal . BACTERIA (test code = Negative Negative 3878064990) MUCOUS (test code = Slight Negative LPF A 3706978837) SQ EPITH (test code = See_Comment [Auto mated message] 2632595128) The system [employer] generated this result transmitted ref erence range: <=2 HPF. The reference range was not used to int erpret this result as normal/abnormal . HYAL CAST (test code = See_Comment H [Aut omated message] 6918260508) The system [employer] generated this result transmitted ref erence range: <=2 LPF. The reference range was not used to int erpret this result as normal/abnormal . Lab Interpretation (test Abnormal code = 86021-2) [facility] HospitalCT ABDOMEN PELVIS W [id number] 04:28:40Impression: 1. Multiple rim-enhancing fluid and gas [...] effusions, possiblyloculated on the left. RL: 2824AFC: [id number] End of Report Exam: CT Abdomen and [...] pleural effusions, possiblyloculated on the left.RL: 2824AFC: 85212Wvz of Report [facility] HospitalJOEANMED HEALTH RE[facility]ABILITATION HOSPITALTIMMY [id number] 03:44:00 Test Item Value Reference Range Interpretation Comments TROPONIN I (test 0.001 ng/mL See_Comment [Automated code = 8026332550) message] The system which generated this result [...] ? Lab Interpretation Normal (test code = 97223-5) [facility] HospitalCOM. METABOLIC PANEL (33795)2020-05-20 03:33:00 Test Item Value Reference Range Interpretation Comments NA (test code = 138 mmol/L 135-145 2091778540) K (test code = 5.3 mmol/L 3.5-5 H 4670931649) CL (test code = 100 mmol/L 98-108 0615565818) CO2 TOTAL (test code = 28 mmol/L 23-31 4995509542) AGAP (test code = 2-16 2630076489) BUN (test code = 27 mg/dL 7-23 H 0567713861) GLUCOSE (test code = 90 mg/dL 70-110 0081748345) CREATININE (test code = 1.25 mg/dL 0.6-1.25 8881393654) TOTAL BILI (test code = 0.2 mg/dL 0.1-1.9 3861519566) CALCIUM (test code = 9.9 mg/dL 8.6-10.6 0659173421) T PROTEIN (test code = 6.8 g/dL 6.3-8.2 1078416403) ALBUMIN (test code = 3.7 g/dL 3.5-5 2232174959) ALK PHOS (test code = 122 U/L 34-122 3046426455) ALTv (test code = 26 U/L 5-50 1742-6) AST(SGOT) (test code = 24 U/L 13-40 3224161671) eGFR Calculation mL/min/1.73m2 (Non-) (test code = 7457913042) eGFR Calculation mL/min/1.73m2 () (test code = 7224887397) GILBERTO (test code = GILBERTO) Association of [...] tests). Lab Interpretation Abnormal (test code = 04401-5) [facility] HospitalLIPASE2020-09-27 03:33:00 Test Item Value Reference Range Interpretation Comments LIPASE (test code = 2245651244) 223 U/L 0-220 H Lab Interpretation (test code = Abnormal 56349-3) [facility] HospitalMAGNESIUM2020-09-27 03:33:00 Test Item Value Reference Range Interpretation Comments MAGNESIUM (test code = 7836449333) 1.7 mg/dL 1.7-2.4 Lab Interpretation (test code = Normal 34860-2) [facility] WITH [id number] 03:17:00 Test Item Value Reference Range Interpretation Comments WBC (test code = See_Comment [Automated 1409-2) message] The sy stem which generated this result transmitted reference range : 4.20 - 10.70 10*3/?L. The reference range was not used to interpret this result as normal/abnormal . RBC (test code = See_Comment L [Automated 078-3) message] The sy stem which generated this [...] RDW-SD (test code = 49.9 fL 38.5-51.6 77013-6) RDW-CV (test code = 17.2 % 12.1-15.4 H 788-0) PLT (test code = See_Comment H [Automated 777-3) message] The sy stem which generated this result transmitted reference range : 150 - 328 10*3/ ?L. The reference r meredith was not used to interpret this result as normal/abnormal . MPV (test code = 9.3 fL 9.8-13 L 14395-3) NRBC/100 WBC (test See_Comment [Automat ed code = 4127942370) message] The system which generated this result transmitted reference range : 0.0 - 10.0 /100 WBCs. The refer ence range was not u sed to interpret th is result as normal/abnormal . NRBC x10^3 (test code <0.01 See_Comment [Auto mated = 4273330789) message] The s ystem which generated this result transmitted reference range : 10*3/?L. The reference range was not used to interpret this result as normal/abnormal . GRAN MAT (NEUT) % 78.5 % (test code = 770-8) IMM GRAN % (test code 0.50 % = 8405674363) LYMPH % (test code = 11.6 % 736-9) MONO % (test code = 8.4 % 5905-5) EOS % (test code = 0.6 % 713-8) BASO % (test code = 0.4 % 706-2) GRAN MAT x10^3(ANC) 6.16 10*3/uL 1.99-6.95 (test code = 9748743605) IMM GRAN x10^3 (test 0.04 10*3/uL 0-0.06 code = 1707104548) LYMPH x10^3 (test code 0.91 10*3/uL 1.09-3.23 L = 731-0) MONO x10^3 (test code 0.66 10*3/uL 0.36-1.02 = 742-7) EOS x10^3 (test code = 0.05 10*3/uL 0.06-0.53 L 711-2) BASO x10^3 (test code 0.03 10*3/uL 0.01-0.09 = 704-7) Lab Interpretation Abnormal (test code = 39829-5) [facility] HospitalB[facility] FLUID CULTURE(AEROBIC/ANAEROBIC) 2020-05-10 15:19:00 Test Item Value Reference Range Interpretation Comments BODY FLUID CULT 2+ Clostridioides (test code = (Clostridium) difficile 611-4) Gram stain (test Few PMNs or Mononuclear code = 664-3) cells observed [facility] HospitalBasi Metabolic Panel (NA, K, CL, CO2, GLUCOSE, BUN, CREATININE, CA)2020-05-10 10:27:00 Test Item Value Reference Range Interpretation Comments NA (test code = 132 mmol/L 135-145 L 9519549110) K (test code = 4.0 mmol/L 3.5-5 3553780725) CL (test code = 97 mmol/L 98-108 L 2165074086) CO2 TOTAL (test code = 28 mmol/L 23-31 7418754703) AGAP (test code = 2-16 8317789970) BUN (test code = 12 mg/dL 7-23 9995890689) GLUCOSE (test code = 128 mg/dL 70-110 H 8031601653) CREATININE (test code = 0.63 mg/dL 0.6-1.25 3376567272) CALCIUM (test code = 8.7 mg/dL 8.6-10.6 2184432699) eGFR Calculation mL/min/1.73m2 (Non-) (test code = 0425760944) eGFR Calculation mL/min/1.73m2 () (test code = 9383484721) GILBERTO (test code = GILBERTO) Association of [...] tests). Lab Interpretation Abnormal (test code = 48337-1) [facility] HospitalMagnesium Tfnwj2147-28-41 10:27:00 Test Item Value Reference Range Interpretation Comments MAGNESIUM (test code = 3308284505) 1.7 mg/dL 1.7-2.4 Lab Interpretation (test code = Normal 60268-6) [facility] HospitalPhosphorus Kxcvk4478-87-40 10:27:00 Test Item Value Reference Range Interpretation Comments PHOSPHORUS (test code = 8403351555) 3.4 mg/dL 2.5-5 Lab Interpretation (test code = Normal 68079-5) [facility] Hospital[facility] with Abicjcrjshkm2128-61-35 10:03:00 Test Item Value Reference Range Interpretation Comments WBC (test code = See_Comment [Automated 7684-2) message] The sy stem which generated this result transmitted reference range : 4.20 - 10.70 10*3/?L. The reference range was not used to interpret this result as normal/abnormal . RBC (test code = See_Comment L [Automated 8898) message] The sy stem which generated this [...] RDW-SD (test code = 47.3 fL 38.5-51.6 29397-8) RDW-CV (test code = 15.7 % 12.1-15.4 H 788-0) PLT (test code = See_Comment H [Automated 777-3) message] The sy stem which generated this result transmitted reference range : 150 - 328 10*3/ ?L. The reference r meredith was not used to interpret this result as normal/abnormal . MPV (test code = 8.9 fL 9.8-13 L 97009-2) NRBC/100 WBC (test See_Comment [Automat ed code = 4791563171) message] The system which generated this result transmitted reference range : 0.0 - 10.0 /100 WBCs. The refer ence range was not u sed to interpret th is result as normal/abnormal . NRBC x10^3 (test code <0.01 See_Comment [Auto mated = 3106267517) message] The s ystem which generated this result transmitted reference range : 10*3/?L. The reference range was not used to interpret this result as normal/abnormal . GRAN MAT (NEUT) % 80.0 % (test code = 770-8) IMM GRAN % (test code 0.50 % = 2636369637) LYMPH % (test code = 11.8 % 736-9) MONO % (test code = 6.6 % 5905-5) EOS % (test code = 0.8 % 713-8) BASO % (test code = 0.3 % 706-2) GRAN MAT x10^3(ANC) 6.98 10*3/uL 1.99-6.95 H (test code = 6835613328) IMM GRAN x10^3 (test 0.04 10*3/uL 0-0.06 code = 1392703185) LYMPH x10^3 (test code 1.03 10*3/uL 1.09-3.23 L = 731-0) MONO x10^3 (test code 0.58 10*3/uL 0.36-1.02 = 742-7) EOS x10^3 (test code = 0.07 10*3/uL 0.06-0.53 711-2) BASO x10^3 (test code 0.03 10*3/uL 0.01-0.09 = 704-7) Lab Interpretation Abnormal (test code = 53339-0) [facility] Metabolic Panel (NA, K, CL, CO2, GLUCOSE, BUN, CREATININE, CA)2020-05-09 11:07:00 Test Item Value Reference Range Interpretation Comments NA (test code = 133 mmol/L 135-145 L 8956327212) K (test code = 4.4 mmol/L 3.5-5 9482332296) CL (test code = 100 mmol/L 98-108 6619718656) CO2 TOTAL (test code = 25 mmol/L 23-31 3455339285) AGAP (test code = 2-16 7622104765) BUN (test code = 14 mg/dL 7-23 1875586007) GLUCOSE (test code = 93 mg/dL 70-110 9147512899) CREATININE (test code = 0.66 mg/dL 0.6-1.25 7372287352) CALCIUM (test code = 8.3 mg/dL 8.6-10.6 L 6348424996) eGFR Calculation mL/min/1.73m2 (Non-) (test code = 2949297489) eGFR Calculation mL/min/1.73m2 () (test code = 0088493733) GILBERTO (test code = GILBERTO) Association of [...] tests). Lab Interpretation Abnormal (test code = 27153-3) [facility] HospitalMagnesium Oakiu0695-56-87 11:07:00 Test Item Value Reference Range Interpretation Comments MAGNESIUM (test code = 1912633140) 1.8 mg/dL 1.7-2.4 Lab Interpretation (test code = Normal 55252-5) [facility] HospitalPhosphorus Fhkil5238-18-36 11:07:00 Test Item Value Reference Range Interpretation Comments PHOSPHORUS (test code = 6332813892) 3.2 mg/dL 2.5-5 Lab Interpretation (test code = Normal 28357-8) [facility] with Ppxsrgpotyub1393-83-34 10:42:00 Test Item Value Reference Range Interpretation Comments WBC (test code = See_Comment [Automated 2961-2) message] The sy stem which generated this result transmitted reference range : 4.20 - 10.70 10*3/?L. The reference range was not used to interpret this result as normal/abnormal . RBC (test code = See_Comment L [Automated 130-8) message] The sy stem which generated this [...] RDW-SD (test code = 45.9 fL 38.5-51.6 10951-9) RDW-CV (test code = 15.4 % 12.1-15.4 788-0) PLT (test code = See_Comment H [Automated 777-3) message] The sy stem which generated this result transmitted reference range : 150 - 328 10*3/ ?L. The reference r meredith was not used to interpret this result as normal/abnormal . MPV (test code = 8.9 fL 9.8-13 L 43084-9) NRBC/100 WBC (test See_Comment [Automat ed code = 2277595043) message] The system which generated this result transmitted reference range : 0.0 - 10.0 /100 WBCs. The refer ence range was not u sed to interpret th is result as normal/abnormal . NRBC x10^3 (test code <0.01 See_Comment [Auto mated = 8222544250) message] The s ystem which generated this result transmitted reference range : 10*3/?L. The reference range was not used to interpret this result as normal/abnormal . GRAN MAT (NEUT) % 77.7 % (test code = 770-8) IMM GRAN % (test code 0.50 % = 2638313076) LYMPH % (test code = 11.8 % 736-9) MONO % (test code = 8.4 % 5905-5) EOS % (test code = 1.4 % 713-8) BASO % (test code = 0.2 % 706-2) GRAN MAT x10^3(ANC) 6.48 10*3/uL 1.99-6.95 (test code = 0226019109) IMM GRAN x10^3 (test 0.04 10*3/uL 0-0.06 code = 9354173832) LYMPH x10^3 (test code 0.98 10*3/uL 1.09-3.23 L = 731-0) MONO x10^3 (test code 0.70 10*3/uL 0.36-1.02 = 742-7) EOS x10^3 (test code = 0.12 10*3/uL 0.06-0.53 711-2) BASO x10^3 (test code <0.03 0.01-0.09 = 704-7) Lab Interpretation Abnormal (test code = 64617-5) [facility] Metabolic Panel (NA, K, CL, CO2, GLUCOSE, BUN, CREATININE, CA)2020-05-08 12:18:00 Test Item Value Reference Range Interpretation Comments NA (test code = 136 mmol/L 135-145 1193649223) K (test code = 4.1 mmol/L 3.5-5 3726385506) CL (test code = 102 mmol/L 98-108 6701545075) CO2 TOTAL (test code = 26 mmol/L 23-31 8493734756) AGAP (test code = 2-16 0917278977) BUN (test code = 18 mg/dL 7-23 2330739789) GLUCOSE (test code = 99 mg/dL 70-110 6541580809) CREATININE (test code = 0.63 mg/dL 0.6-1.25 8647879542) CALCIUM (test code = 8.4 mg/dL 8.6-10.6 L 5945757522) eGFR Calculation mL/min/1.73m2 (Non-) (test code = 0621942887) eGFR Calculation mL/min/1.73m2 () (test code = 5519672445) GILBERTO (test code = GILBERTO) Association of [...] tests). Lab Interpretation Abnormal (test code = 33466-0) [facility] HospitalMagnesium Ddkxt1861-81-27 12:18:00 Test Item Value Reference Range Interpretation Comments MAGNESIUM (test code = 8969477101) 1.8 mg/dL 1.7-2.4 Lab Interpretation (test code = Normal 29100-0) [facility] HospitalPhosphorus Crmsx0262-82-31 12:18:00 Test Item Value Reference Range Interpretation Comments PHOSPHORUS (test code = 7593491950) 3.2 mg/dL 2.5-5 Lab Interpretation (test code = Normal 75554-3) [facility] with Jqvjudyscucj7597-97-30 11:50:00 Test Item Value Reference Range Interpretation Comments WBC (test code = See_Comment [Automated 6490-2) message] The sy stem which generated this result transmitted reference range : 4.20 - 10.70 10*3/?L. The reference range was not used to interpret this result as normal/abnormal . RBC (test code = See_Comment L [Automated 229-8) message] The sy stem which generated this [...] RDW-SD (test code = 46.9 fL 38.5-51.6 38564-2) RDW-CV (test code = 15.2 % 12.1-15.4 788-0) PLT (test code = See_Comment H [Automated 777-3) message] The sy stem which generated this result transmitted reference range : 150 - 328 10*3/ ?L. The reference r meredith was not used to interpret this result as normal/abnormal . MPV (test code = 9.0 fL 9.8-13 L 17250-2) NRBC/100 WBC (test See_Comment [Automat ed code = 8386700639) message] The system which generated this result transmitted reference range : 0.0 - 10.0 /100 WBCs. The refer ence range was not u sed to interpret th is result as normal/abnormal . NRBC x10^3 (test code <0.01 See_Comment [Auto mated = 7808530240) message] The s ystem which generated this result transmitted reference range : 10*3/?L. The reference range was not used to interpret this result as normal/abnormal . GRAN MAT (NEUT) % 76.3 % (test code = 770-8) IMM GRAN % (test code 0.70 % = 0417296100) LYMPH % (test code = 13.3 % 736-9) MONO % (test code = 8.4 % 5905-5) EOS % (test code = 1.1 % 713-8) BASO % (test code = 0.2 % 706-2) GRAN MAT x10^3(ANC) 6.93 10*3/uL 1.99-6.95 (test code = 3670335995) IMM GRAN x10^3 (test 0.06 10*3/uL 0-0.06 code = 0782676265) LYMPH x10^3 (test code 1.21 10*3/uL 1.09-3.23 = 731-0) MONO x10^3 (test code 0.76 10*3/uL 0.36-1.02 = 742-7) EOS x10^3 (test code = 0.10 10*3/uL 0.06-0.53 711-2) BASO x10^3 (test code <0.03 0.01-0.09 = 704-7) Lab Interpretation Abnormal (test code = 13593-8) [facility] Hospital[facility] BY CATHETER PERITONEAL OR GCOETRKACYJKOCW9005-81-48 13:09:04 Technically successful drainage catheter placement in [...] from those actually performing theprocedure. Please see [facility] for total sedation [...] of the tract was performed. A 14 Slovenian locking pigtail michael inagecatheter was placed in the collection and samples were sent for laboratoryanalysis. The left upper quadrant collection was identified under ultrasound and CTguidance. A 17-gauge coaxial needle wasadvanced into the collection. AnAmplatz wire was advanced into the collection over the needle and serialdilatation of the tract was performed. A 12 Slovenian locking pigtail drainagecatheter was placed within the collection and samples were sent forlaboratory analysis. The right lower quadrant collectionwas identified under ultrasound and CTguidance. A 17-gauge coaxial needle was advanced into the colle ction.Serial dilatation was performed over the Amplatz wire. A 14 Slovenian lockingpigtail drainage catheter was placed within the collection. Proper positioning was confirmed with postprocedural CT imaging of theabdomen and pelvis. The catheters were sutured to the skin. ESTIMATED BLOOD LOSS: <3cc. CONDITION: Stable. FINDINGS: Initial CT images demonstrate multiple abscesses in the left upper, rightupper, and right lower quadrants. [facility], Radiant Results Inft User - 05/07/2020 [...] from those actually performing theprocedure. Please see [facility] for total sedation time. TECHNIQUE: The risks, benefits and alternatives were discussed and informedconsent was obtained. Prior to beginning the procedure, [place] Protocolwas performed to confirm the patient's identity [...] of the tract was performed. A 14 Slovenian lockingpigtail drainagecatheter was placed in the collection and samples were sent for laboratoryanalysis.The left upper quadrant collection was identified under ultrasound and CTguidance. A 17-gauge coaxial needle was advanced into the collection. AnAmplatz wire was advanced into the collection over the needle and serialdilatation of the tract was performed. A 12 Slovenian locking pigtail drainagecatheter wasplaced within the collection and samples were sent forlaboratory analysis.The right lower quadrant collection was identified under ultrasound and CTguidance. A 17-gauge coaxial needle was advanced intothe collection.Serial dilatation was performed over the Amplatz wire. A 14 Slovenian lockingpigtail drainage catheter was placed within the [...] during the entire procedure and/orduring the botello components.[facility] Metabolic Panel (NA, K, CL, CO2, GLUCOSE, BUN, CREATININE, CA) 2020-05-07 11:49:00 Test Item Value Reference Range Interpretation Comments NA (test code = 132 mmol/L 135-145 L 9349894013) K (test code = 4.0 mmol/L 3.5-5 4725577606) CL (test code = 101 mmol/L 98-108 3116749154) CO2 TOTAL (test code = 23 mmol/L 23-31 3165145390) AGAP (test code = 2-16 2211556245) BUN (test code = 21 mg/dL 7-23 5138878787) GLUCOSE (test code = 98 mg/dL 70-110 7745198459) CREATININE (test code = 0.65 mg/dL 0.6-1.25 6685339002) CALCIUM (test code = 8.4 mg/dL 8.6-10.6 L 1209698126) eGFR Calculation mL/min/1.73m2 (Non-) (test code = 5905776225) eGFR Calculation mL/min/1.73m2 () (test code = 8815643501) GILBERTO (test code = GILBERTO) Association of [...] tests). Lab Interpretation Abnormal (test code = 36250-4) [facility] Pejzj6934-49-57 11:49:00 Test Item Value Reference Range Interpretation Comments MAGNESIUM (test code = 8156409977) 1.5 mg/dL 1.7-2.4 L Lab Interpretation (test code = Abnormal 68481-3) [facility] [id number] 11:49:00 Test Item Value Reference Range Interpretation Comments PHOSPHORUS (test code = 7227913271) 2.7 mg/dL 2.5-5 Lab Interpretation (test code = Normal 44746-9) [facility] with Zctozwpumxkc0559-19-67 11:31:00 Test Item Value Reference Range Interpretation [...] RDW-SD (test code = 47.2 fL 38.5-51.6 79219-8) RDW-CV (test code = 15.3 % 12.1-15.4 788-0) PLT (test code = See_Comment H [Automated 777-3) message] The sy stem which generated this result transmitted reference range : 150 - 328 10*3/ ?L. The reference r meredith was not used to interpret this result as normal/abnormal . MPV (test code = 9.4 fL 9.8-13 L 19130-3) NRBC/100 WBC (test See_Comment [Automat ed code = 9750944981) message] The system which generated this result transmitted reference range : 0.0 - 10.0 /100 WBCs. The refer ence range was not u sed to interpret th is result as normal/abnormal . NRBC x10^3 (test code <0.01 See_Comment [Auto mated = 4636873781) message] The s ystem which generated this result transmitted reference range : 10*3/?L. The reference range was not used to interpret this result as normal/abnormal . GRAN MAT (NEUT) % 81.1 % (test code = 770-8) IMM GRAN % (test code 0.80 % = 0020256780) LYMPH % (test code = 9.5 % 736-9) MONO % (test code = 7.8 % 5905-5) EOS % (test code = 0.6 % 713-8) BASO % (test code = 0.2 % 706-2) GRAN MAT x10^3(ANC) 8.26 10*3/uL 1.99-6.95 H (test code = 9455393964) IMM GRAN x10^3 (test 0.08 10*3/uL 0-0.06 H code = 4962221010) LYMPH x10^3 (test code 0.97 10*3/uL 1.09-3.23 L = 731-0) MONO x10^3 (test code 0.79 10*3/uL 0.36-1.02 = 742-7) EOS x10^3 (test code = 0.06 10*3/uL 0.06-0.53 711-2) BASO x10^3 (test code <0.03 0.01-0.09 = 704-7) Lab Interpretation Abnormal (test code = 47244-0) [facility] Metabolic Panel (NA, K, CL, CO2, GLUCOSE, BUN, CREATININE, CA)2020-05-06 15:02:00 Test Item Value Reference Range Interpretation Comments NA (test code = 134 mmol/L 135-145 L 0277896641) K (test code = 4.3 mmol/L 3.5-5 6537917432) CL (test code = 105 mmol/L 98-108 0764440009) CO2 TOTAL (test code = 23 mmol/L 23-31 4995105901) AGAP (test code = 2-16 7469825354) BUN (test code = 18 mg/dL 7-23 7007727136) GLUCOSE (test code = 96 mg/dL 70-110 3307579179) CREATININE (test code = 0.67 mg/dL 0.6-1.25 3397716785) CALCIUM (test code = 8.5 mg/dL 8.6-10.6 L 0984328059) eGFR Calculation mL/min/1.73m2 (Non-) (test code = 6033301436) eGFR Calculation mL/min/1.73m2 () (test code = 5827038915) GILBERTO (test code = GILBERTO) Association of [...] tests). Lab Interpretation Abnormal (test code = 60582-8) [facility] Kjwhn7655-88-78 15:02:00 Test Item Value Reference Range Interpretation Comments MAGNESIUM (test code = 0120534611) 1.8 mg/dL 1.7-2.4 Lab Interpretation (test code = Normal 51321-9) [facility] Kjcmc3269-38-98 15:02:00 Test Item Value Reference Range Interpretation Comments PHOSPHORUS (test code = 5384972709) 3.2 mg/dL 2.5-5 Lab Interpretation (test code = Normal 12437-3) [facility] with Tgbrxxzgmbyw2923-65-14 10:41:00 Test Item Value Reference Range Interpretation [...] RDW-SD (test code = 47.0 fL 38.5-51.6 08721-3) RDW-CV (test code = 15.2 % 12.1-15.4 788-0) PLT (test code = See_Comment H [Automated 777-3) message] The sy stem which generated this result transmitted reference range : 150 - 328 10*3/ ?L. The reference r meredith was not used to interpret this result as normal/abnormal . MPV (test code = 9.1 fL 9.8-13 L 93045-0) NRBC/100 WBC (test See_Comment [Automat ed code = 6002313455) message] The system which generated this result transmitted reference range : 0.0 - 10.0 /100 WBCs. The refer ence range was not u sed to interpret th is result as normal/abnormal . NRBC x10^3 (test code <0.01 See_Comment [Auto mated = 8958703190) message] The s ystem which generated this result transmitted reference range : 10*3/?L. The reference range was not used to interpret this result as normal/abnormal . GRAN MAT (NEUT) % 77.3 % (test code = 770-8) IMM GRAN % (test code 0.60 % = 7613863524) LYMPH % (test code = 11.6 % 736-9) MONO % (test code = 9.5 % 5905-5) EOS % (test code = 0.8 % 713-8) BASO % (test code = 0.2 % 706-2) GRAN MAT x10^3(ANC) 6.69 10*3/uL 1.99-6.95 (test code = 0626433957) IMM GRAN x10^3 (test 0.05 10*3/uL 0-0.06 code = 9563664453) LYMPH x10^3 (test code 1.00 10*3/uL 1.09-3.23 L = 731-0) MONO x10^3 (test code 0.82 10*3/uL 0.36-1.02 = 742-7) EOS x10^3 (test code = 0.07 10*3/uL 0.06-0.53 711-2) BASO x10^3 (test code <0.03 0.01-0.09 = 704-7) Lab Interpretation Abnormal (test code = 36570-4) [facility] Packed RBC (in units), 1 Units 2020-05-05 15:59:33 Test Item Value Reference Range Interpretation Comments Cross Match Result Compatible (test code = 4409) ISBT Blood Type Code (test code = 639677) Unit Blood Type (test O Pos code = 4410) Unit Number (test [id number] code = 4411) Blood Expiration Date & Time (test code = 515406) Status Information Issued (test code = 4412) Product Red Blood Cells Identification (test code = 4413) Product Code (test U8262A19 Performed at [facility] code = 4414) Laboratory Services - [facility] Blood [address] [place] [address]Rldt Free: [phone] A No. [id number] [facility] and Screen - ONCE Orxqxrx3654-40-95 11:34:29 Test Item Value Reference Range Interpretation Comments ABO & RH (test code O POSITIVE Performe d at [facility] = 20) Laboratory Serv [facility] Blood Bank[address] [facility] s [address]Okpg Free: [phone] A No. [id number] IAT (test code = Negative Performed a t [facility] 1185) Laboratory Serv [facility] Blood [facility] [facility] s [address]Wfte Free: [phone] A No. [id number] [facility] HospitalPREAL[facility]UMIN2020-09-12 10:19:00 Test Item Value Reference Range Interpretation Comments PALB (test code = 23620-5) 8.0 mg/dL 18-45 L Lab Interpretation (test code = Abnormal 55167-8) [facility] (NA, K, CL, CO2, GLUCOSE, BUN, CREATININE, CA)2020-05-05 10:12:00 Test Item Value Reference Range Interpretation Comments NA (test code = 135 mmol/L 135-145 7035428448) K (test code = 4.1 mmol/L 3.5-5 2233099873) CL (test code = 106 mmol/L 98-108 5274961928) CO2 TOTAL (test code = 22 mmol/L 23-31 L 9837906287) AGAP (test code = 2-16 4150179757) BUN (test code = 25 mg/dL 7-23 H 1210089171) GLUCOSE (test code = 91 mg/dL 70-110 5421395609) CREATININE (test code = 0.68 mg/dL 0.6-1.25 1507173593) CALCIUM (test code = 7.4 mg/dL 8.6-10.6 L 8870870320) eGFR Calculation mL/min/1.73m2 (Non-) (test code = 3389552385) eGFR Calculation mL/min/1.73m2 () (test code = 1880388163) GILBERTO (test code = GILBERTO) Association of [...] tests). Lab Interpretation Abnormal (test code = 90905-0) [facility] Krewt2304-07-16 10:12:00 Test Item Value Reference Range Interpretation Comments MAGNESIUM (test code = 7155588680) 1.8 mg/dL 1.7-2.4 Lab Interpretation (test code = Normal 82052-0) [facility] Zymse4980-97-99 10:12:00 Test Item Value Reference Range Interpretation Comments PHOSPHORUS (test code = 6436750435) 3.1 mg/dL 2.5-5 Lab Interpretation (test code = Normal 86812-5) [facility] with Ewpigltsgxhl5107-23-77 09:18:00 Test Item Value Reference Range Interpretation [...] RDW-SD (test code = 48.4 fL 38.5-51.6 76249-2) RDW-CV (test code = 15.7 % 12.1-15.4 H 788-0) PLT (test code = See_Comment H [Automated 777-3) message] The sy stem which generated this result transmitted reference range : 150 - 328 10*3/ ?L. The reference r meredith was not used to interpret this result as normal/abnormal . MPV (test code = 9.1 fL 9.8-13 L 51523-9) NRBC/100 WBC (test See_Comment [Automat ed code = 1822870053) message] The system which generated this result transmitted reference range : 0.0 - 10.0 /100 WBCs. The refer ence range was not u sed to interpret th is result as normal/abnormal . NRBC x10^3 (test code <0.01 See_Comment [Auto mated = 4563548715) message] The s ystem which generated this result transmitted reference range : 10*3/?L. The reference range was not used to interpret this result as normal/abnormal . GRAN MAT (NEUT) % 79.0 % (test code = 770-8) IMM GRAN % (test code 0.70 % = 7190044471) LYMPH % (test code = 10.6 % 736-9) MONO % (test code = 8.9 % 5905-5) EOS % (test code = 0.5 % 713-8) BASO % (test code = 0.3 % 706-2) GRAN MAT x10^3(ANC) 7.81 10*3/uL 1.99-6.95 H (test code = 2281810451) IMM GRAN x10^3 (test 0.07 10*3/uL 0-0.06 H code = 3359786335) LYMPH x10^3 (test code 1.05 10*3/uL 1.09-3.23 L = 731-0) MONO x10^3 (test code 0.88 10*3/uL 0.36-1.02 = 742-7) EOS x10^3 (test code = 0.05 10*3/uL 0.06-0.53 L 711-2) BASO x10^3 (test code 0.03 10*3/uL 0.01-0.09 = 704-7) Lab Interpretation Abnormal (test code = 61127-6) [facility]IS2020-[facility]-12 06:03:00 Test Item Value Reference Range Interpretation Comments APPEARANCE (test code = Hazy Clear A 1172844779) COLOR (test code = Yellow Yellow 2673485520) PH (test code = 4.8-8.0 3270376689) SP GRAVITY (test code = 1.003-1.030 H 5574406249) GLU U QUAL (test code = Normal Normal 7150628291) BLOOD (test code = Negative Negative 9801051754) KETONES (test code = Negative Negative 4637310180) PROTEIN (test code = Negative Negative 2887-8) UROBILIN (test code = Normal Normal 3669073003) BILIRUBIN (test code = Negative Negative 0434153836) NITRITE (test code = Negative Negative 2890753792) LEUK ROGER (test code = Negative Negative 6767703845) RBC/HPF (test code = See_Comment H [Autom ated message] 0735568348) The system [employer] generated this result transmitted ref erence range: 0 - 3 HP F. The reference range was not used to int erpret this result as normal/abnormal . WBC/HPF (test code = See_Comment [Autom ated message] 9801844356) The system [employer] generated this result transmitted ref erence range: 0 - 5 HP F. The reference range was not used to int erpret this result as normal/abnormal . BACTERIA (test code = Few Negative A 5199101554) MUCOUS (test code = Slight Negative LPF A 5092509186) CA OXALATE (test code = See_Comment H [Au tomated message] 5204567199) The system [employer] generated this result transmitted ref erence range: <=1 HPF. The reference range was not used to int erpret this result as normal/abnormal . Lab Interpretation (test Abnormal code = 45302-6) [facility]OMEN PELVIS W [id number] 04:56:59 1. ?Interval removal of left subdiaphragmatic, [...] reviewed this study and agree with the abovereport.[facility]OVID[facility] (ID NOW RAPID TESTING)2020-05-05 03:40:00 Test Item Value Reference Range Interpretation Comments SARS-CoV-2 Rapid ID NOW Not Detected Not Detected (test code = 88442-3) GILBERTO (test code = GILBERTO) ID NOW COVID-19 Assay is an isothermal nucleic acid amplification test intended for the qualitative detection of nucleic acid from SARS-CoV-2 viral RNA in nasopharyngeal (UI LEAD DEVELOPER) specimens. It is used under Emergency Use [...] indicated. Lab Interpretation Normal (test code = 72992-0) [facility]. METABOLIC PANEL (88832)2020-05-05 03:02:00 Test Item Value Reference Range Interpretation Comments NA (test code = 134 mmol/L 135-145 L 1666586930) K (test code = 4.7 mmol/L 3.5-5 8696929003) CL (test code = 99 mmol/L 98-108 3051636175) CO2 TOTAL (test code = 24 mmol/L 23-31 7090203060) AGAP (test code = 2-16 8386452725) BUN (test code = 37 mg/dL 7-23 H 5026004851) GLUCOSE (test code = 105 mg/dL 70-110 3297944396) CREATININE (test code = 0.94 mg/dL 0.6-1.25 1542498024) TOTAL BILI (test code = 0.5 mg/dL 0.1-1.0 7160067144) CALCIUM (test code = 8.8 mg/dL 8.6-10.6 8984292949) T PROTEIN (test code = 6.2 g/dL 6.3-8.2 L 2938191797) ALBUMIN (test code = 3.0 g/dL 3.5-5 L 9760345961) ALK PHOS (test code = 150 U/L 34-122 H 5738506007) ALTv (test code = 28 U/L 5-50 1742-6) AST(SGOT) (test code = 23 U/L 13-40 4451859557) eGFR Calculation mL/min/1.73m2 (Non-) (test code = 5268861939) eGFR Calculation mL/min/1.73m2 () (test code = 0190694978) GILBERTO (test code = GILBERTO) Association of [...] tests). Lab Interpretation Abnormal (test code = 48490-1) [facility] HospitalLIP[facility]2020-09-12 03:02:00 Test Item Value Reference Range Interpretation Comments LIPASE (test code = 3591557482) 323 U/L 0-220 H Lab Interpretation (test code = Abnormal 06522-7) [facility] WITH [id number] 02:43:00 Test Item Value Reference Range Interpretation Comments WBC (test code = See_Comment H [Automated 9190-2) message] The system which generated this result transmit dain reference range : 4.20 - 10.70 10*3/?L. The reference range was not used to interpret this result as normal/abnormal . RBC (test code = See_Comment L [Automated 379-8) message] The system which generated this result [...] RDW-SD (test code = 45.7 fL 38.5-51.6 74512-2) RDW-CV (test code = 15.4 % 12.1-15.4 788-0) PLT (test code = See_Comment H [Automated 777-3) message] The system which generated this result transmit dain reference range : 150 - 328 10*3/ ?L. The reference range was not u sed to interpret th is result as normal/abnormal . MPV (test code = 8.9 fL 9.8-13 L 96693-2) NRBC/100 WBC (test See_Comment [Automat ed code = 1977572558) message] The system which generated this result transmit dain reference range : 0.0 - 10.0 /100 WBCs. The reference range was not used to interpret this result as normal/abnormal . NRBC x10^3 (test code <0.01 See_Comment [Auto mated = 5610294289) message] The system which generated this result transmit dain reference range : 10*3/?L. The reference range was not used to interpret this result as normal/abnormal . GRAN MAT (NEUT) % 82.6 % (test code = 770-8) IMM GRAN % (test code 0.60 % = 8536104903) LYMPH % (test code = 8.1 % 736-9) MONO % (test code = 8.1 % 5905-5) EOS % (test code = 0.4 % 713-8) BASO % (test code = 0.2 % 706-2) GRAN MAT x10^3(ANC) 11.18 10*3/uL 1.99-6.95 H (test code = 0236446293) IMM GRAN x10^3 (test 0.08 10*3/uL 0-0.06 H code = 8941429240) LYMPH x10^3 (test code 1.10 10*3/uL 1.09-3.23 = 731-0) MONO x10^3 (test code 1.09 10*3/uL 0.36-1.02 H = 742-7) EOS x10^3 (test code = 0.05 10*3/uL 0.06-0.53 L 711-2) BASO x10^3 (test code 0.03 10*3/uL 0.01-0.09 = 704-7) Lab Interpretation Abnormal (test code = 85453-8) [facility] METABOLIC PANEL (NA, K, CL, CO2, GLUCOSE, BUN, CREATININE, CA)2020-05-01 12:25:00 Test Item Value Reference Range Interpretation Comments NA (test code = 131 mmol/L 135-145 L 9146275507) K (test code = 4.7 mmol/L 3.5-5 3413980968) CL (test code = 97 mmol/L 98-108 L 3105124600) CO2 TOTAL (test code = 25 mmol/L 23-31 0254203330) AGAP (test code = 2-16 1611397690) BUN (test code = 30 mg/dL 7-23 H 9560915159) GLUCOSE (test code = 111 mg/dL 70-110 H 1422117895) CREATININE (test code = 0.69 mg/dL 0.6-1.25 1903839551) CALCIUM (test code = 9.3 mg/dL 8.6-10.6 5655089029) eGFR Calculation mL/min/1.73m2 (Non-) (test code = 2582747649) eGFR Calculation mL/min/1.73m2 () (test code = 2127626639) GILBERTO (test code = GILBERTO) Association of [...] tests). Lab Interpretation Abnormal (test code = 10059-0) [facility]2020-09-08 12:07:00 Test Item Value Reference Range Interpretation Comments MAGNESIUM (test code = 3807557453) 2.3 mg/dL 1.7-2.4 Lab Interpretation (test code = Normal 53432-2) [facility]PHOSPHORUS2020-09-08 12:07:00 Test Item Value Reference Range Interpretation Comments PHOSPHORUS (test code = 3464753698) 4.6 mg/dL 2.5-5 Lab Interpretation (test code = Normal 83435-1) [facility] WITH [id number] 11:44:00 Test Item Value Reference Range Interpretation [...] RDW-SD (test code = 44.9 fL 38.5-51.6 44007-1) RDW-CV (test code = 14.8 % 12.1-15.4 788-0) PLT (test code = See_Comment H [Automated 777-3) message] The system which generated this result transmit dain reference range : 150 - 328 10*3/ ?L. The reference range was not u sed to interpret th is result as normal/abnormal . MPV (test code = 9.1 fL 9.8-13 L 00482-6) NRBC/100 WBC (test See_Comment [Automat ed code = 6333457232) message] The system which generated this result transmit dain reference range : 0.0 - 10.0 /100 WBCs. The reference range was not used to interpret this result as normal/abnormal . NRBC x10^3 (test code <0.01 See_Comment [Auto mated = 0785544034) message] The system which generated this result transmit dain reference range : 10*3/?L. The reference range was not used to interpret this result as normal/abnormal . GRAN MAT (NEUT) % 81.4 % (test code = 770-8) IMM GRAN % (test code 0.70 % = 2765023682) LYMPH % (test code = 8.7 % 736-9) MONO % (test code = 8.5 % 5905-5) EOS % (test code = 0.3 % 713-8) BASO % (test code = 0.4 % 706-2) GRAN MAT x10^3(ANC) 12.01 10*3/uL 1.99-6.95 H (test code = 5040268371) IMM GRAN x10^3 (test 0.10 10*3/uL 0-0.06 H code = 9528485729) LYMPH x10^3 (test code 1.28 10*3/uL 1.09-3.23 = 731-0) MONO x10^3 (test code 1.25 10*3/uL 0.36-1.02 H = 742-7) EOS x10^3 (test code = 0.04 10*3/uL 0.06-0.53 L 711-2) BASO x10^3 (test code 0.06 10*3/uL 0.01-0.09 = 704-7) Lab Interpretation Abnormal (test code = 94727-8) [facility] METABOLIC PANEL (NA, K, CL, CO2, GLUCOSE, BUN, CREATININE, CA)2020-04-29 12:08:00 Test Item Value Reference Range Interpretation Comments NA (test code = 130 mmol/L 135-145 L 6688864832) K (test code = 5.0 mmol/L 3.5-5 7160486061) CL (test code = 94 mmol/L 98-108 L 9662493155) CO2 TOTAL (test code = 27 mmol/L 23-31 3938296673) AGAP (test code = 2-16 0283224464) BUN (test code = 35 mg/dL 7-23 H 6525681230) GLUCOSE (test code = 116 mg/dL 70-110 H 5843774549) CREATININE (test code = 0.76 mg/dL 0.6-1.25 9343487236) CALCIUM (test code = 9.0 mg/dL 8.6-10.6 3206024843) eGFR Calculation mL/min/1.73m2 (Non-) (test code = 8125103329) eGFR Calculation mL/min/1.73m2 () (test code = 6990135132) GILBERTO (test code = GILBERTO) Association of [...] tests). Lab Interpretation Abnormal (test code = 31283-8) [facility]2020-09-06 12:01:00 Test Item Value Reference Range Interpretation Comments MAGNESIUM (test code = 1427500389) 2.3 mg/dL 1.7-2.4 Lab Interpretation (test code = Normal 49561-5) [facility]2020-09-06 12:01:00 Test Item Value Reference Range Interpretation Comments PHOSPHORUS (test code = 6113087341) 4.5 mg/dL 2.5-5 Lab Interpretation (test code = Normal 58417-0) [facility] WITH [id number] 11:52:00 Test Item Value Reference Range Interpretation Comments WBC (test code = See_Comment H [Automated 4038-2) message] The system which generated this result transmit dain reference range : 4.20 - 10.70 10*3/?L. The reference range was not used to interpret this result as normal/abnormal . RBC (test code = See_Comment L [Automated 867-8) message] The system which generated this result [...] RDW-SD (test code = 44.4 fL 38.5-51.6 11618-6) RDW-CV (test code = 14.7 % 12.1-15.4 788-0) PLT (test code = See_Comment H [Automated 777-3) message] The system which generated this result transmit dain reference range : 150 - 328 10*3/ ?L. The reference range was not u sed to interpret th is result as normal/abnormal . MPV (test code = 9.1 fL 9.8-13 L 51452-3) NRBC/100 WBC (test See_Comment [Automat ed code = 1304641107) message] The system which generated this result transmit dain reference range : 0.0 - 10.0 /100 WBCs. The reference range was not used to interpret this result as normal/abnormal . NRBC x10^3 (test code <0.01 See_Comment [Auto mated = 9735738031) message] The system which generated this result transmit dain reference range : 10*3/?L. The reference range was not used to interpret this result as normal/abnormal . GRAN MAT (NEUT) % 82.5 % (test code = 770-8) IMM GRAN % (test code 1.30 % = 1598578843) LYMPH % (test code = 7.1 % 736-9) MONO % (test code = 8.5 % 5905-5) EOS % (test code = 0.3 % 713-8) BASO % (test code = 0.3 % 706-2) GRAN MAT x10^3(ANC) 14.27 10*3/uL 1.99-6.95 H (test code = 6333677620) IMM GRAN x10^3 (test 0.23 10*3/uL 0-0.06 H code = 4948499871) LYMPH x10^3 (test code 1.23 10*3/uL 1.09-3.23 = 731-0) MONO x10^3 (test code 1.47 10*3/uL 0.36-1.02 H = 742-7) EOS x10^3 (test code = 0.05 10*3/uL 0.06-0.53 L 711-2) BASO x10^3 (test code 0.06 10*3/uL 0.01-0.09 = 704-7) Lab Interpretation Abnormal (test code = 60838-9) [facility] METABOLIC PANEL (NA, K, CL, CO2, GLUCOSE, BUN, CREATININE, CA)2020-04-28 10:15:00 Test Item Value Reference Range Interpretation Comments NA (test code = 130 mmol/L 135-145 L 1168502566) K (test code = 5.3 mmol/L 3.5-5 H 8949355753) CL (test code = 91 mmol/L 98-108 L 8583341673) CO2 TOTAL (test code = 29 mmol/L 23-31 1719282424) AGAP (test code = 2-16 1396109508) BUN (test code = 32 mg/dL 7-23 H 1151524705) GLUCOSE (test code = 101 mg/dL 70-110 0232725942) CREATININE (test code = 0.74 mg/dL 0.6-1.25 2497509206) CALCIUM (test code = 9.5 mg/dL 8.6-10.6 5279503597) eGFR Calculation mL/min/1.73m2 (Non-) (test code = 9084341475) eGFR Calculation mL/min/1.73m2 () (test code = 0843159551) GILBERTO (test code = GILBERTO) Association of [...] tests). Lab Interpretation Abnormal (test code = 61475-9) [facility] Test Item Value Reference Range Interpretation Comments MAGNESIUM (test code = [id number]) 2.3 mg/dL 1.7-2.4 Lab Interpretation (test code = Normal 48687-9) [facility] WITH [id number] 09:55:00 Test Item Value Reference Range Interpretation Comments WBC (test code = See_Comment H [Automated 4390-2) message] The system which generated this result transmit dain reference range : 4.20 - 10.70 10*3/?L. The reference range was not used to interpret this result as normal/abnormal . RBC (test code = See_Comment L [Automated 099-8) message] The system which generated this result [...] RDW-SD (test code = 45.1 fL 38.5-51.6 72055-9) RDW-CV (test code = 14.7 % 12.1-15.4 788-0) PLT (test code = See_Comment H [Automated 777-3) message] The system which generated this result transmit dain reference range : 150 - 328 10*3/ ?L. The reference range was not u sed to interpret th is result as normal/abnormal . MPV (test code = 9.5 fL 9.8-13 L 70892-0) NRBC/100 WBC (test See_Comment [Automat ed code = [id number]) message] The system which generated this result transmit dain reference range : 0.0 - 10.0 /100 WBCs. The reference range was not used to interpret this result as normal/abnormal . NRBC x10^3 (test code <0.01 See_Comment [Auto mated = 1335292546) message] The system which generated this result transmit dain reference range : 10*3/?L. The reference range was not used to interpret this result as normal/abnormal . GRAN MAT (NEUT) % 81.1 % (test code = 770-8) IMM GRAN % (test code 1.40 % = 5226878082) LYMPH % (test code = 8.6 % 736-9) MONO % (test code = 7.9 % 5905-5) EOS % (test code = 0.5 % 713-8) BASO % (test code = 0.5 % 706-2) GRAN MAT x10^3(ANC) 14.68 10*3/uL 1.99-6.95 H (test code = 9576054186) IMM GRAN x10^3 (test 0.25 10*3/uL 0-0.06 H code = 7187132450) LYMPH x10^3 (test code 1.55 10*3/uL 1.09-3.23 = 731-0) MONO x10^3 (test code 1.43 10*3/uL 0.36-1.02 H = 742-7) EOS x10^3 (test code = 0.09 10*3/uL 0.06-0.53 711-2) BASO x10^3 (test code 0.09 10*3/uL 0.01-0.09 = 704-7) Lab Interpretation Abnormal (test code = 67933-1) [facility] METABOLIC PANEL (NA, K, CL, CO2, GLUCOSE, BUN, CREATININE, CA)2020-04-27 10:20:00 Test Item Value Reference Range Interpretation Comments NA (test code = 130 mmol/L 135-145 L 9244041373) K (test code = 4.5 mmol/L 3.5-5 2153181995) CL (test code = 93 mmol/L 98-108 L 6774339168) CO2 TOTAL (test code = 28 mmol/L 23-31 0054447217) AGAP (test code = 2-16 8600265751) BUN (test code = 31 mg/dL 7-23 H 3305920589) GLUCOSE (test code = 102 mg/dL 70-110 4792982053) CREATININE (test code = 0.81 mg/dL 0.6-1.25 7681731985) CALCIUM (test code = 9.0 mg/dL 8.6-10.6 5768553432) eGFR Calculation mL/min/1.73m2 (Non-) (test code = 2280297742) eGFR Calculation mL/min/1.73m2 () (test code = 7258014216) GILBERTO (test code = GILBERTO) Association of [...] tests). Lab Interpretation Abnormal (test code = 95607-9) [facility] Test Item Value Reference Range Interpretation Comments MAGNESIUM (test code = 9370853501) 2.2 mg/dL 1.7-2.4 Lab Interpretation (test code = Normal 09785-5) [facility] WITH [id number] 09:49:00 Test Item Value Reference Range Interpretation [...] RDW-SD (test code = 45.2 fL 38.5-51.6 23524-8) RDW-CV (test code = 14.5 % 12.1-15.4 788-0) PLT (test code = See_Comment H [Automated 777-3) message] The system which generated this result transmit dain reference range : 150 - 328 10*3/ ?L. The reference range was not u sed to interpret th is result as normal/abnormal . MPV (test code = 9.0 fL 9.8-13 L 17283-6) NRBC/100 WBC (test See_Comment [Automat ed code = 4571202666) message] The system which generated this result transmit dain reference range : 0.0 - 10.0 /100 WBCs. The reference range was not used to interpret this result as normal/abnormal . NRBC x10^3 (test code <0.01 See_Comment [Auto mated = 1524833002) message] The system which generated this result transmit dain reference range : 10*3/?L. The reference range was not used to interpret this result as normal/abnormal . GRAN MAT (NEUT) % 80.9 % (test code = 770-8) IMM GRAN % (test code 1.30 % = 4595388778) LYMPH % (test code = 8.9 % 736-9) MONO % (test code = 7.7 % 5905-5) EOS % (test code = 0.6 % 713-8) BASO % (test code = 0.6 % 706-2) GRAN MAT x10^3(ANC) 13.18 10*3/uL 1.99-6.95 H (test code = 5036126044) IMM GRAN x10^3 (test 0.21 10*3/uL 0-0.06 H code = 4810546047) LYMPH x10^3 (test code 1.45 10*3/uL 1.09-3.23 = 731-0) MONO x10^3 (test code 1.26 10*3/uL 0.36-1.02 H = 742-7) EOS x10^3 (test code = 0.09 10*3/uL 0.06-0.53 711-2) BASO x10^3 (test code 0.10 10*3/uL 0.01-0.09 H = 704-7) Lab Interpretation Abnormal (test code = 13946-4) [facility] METABOLIC PANEL (NA, K, CL, CO2, GLUCOSE, BUN, CREATININE, CA)2020-04-26 11:29:00 Test Item Value Reference Range Interpretation Comments NA (test code = 133 mmol/L 135-145 L 1475863404) K (test code = 4.7 mmol/L 3.5-5 0080861413) CL (test code = 98 mmol/L 98-108 9464576822) CO2 TOTAL (test code = 25 mmol/L 23-31 8484067748) AGAP (test code = 2-16 7577011102) BUN (test code = 26 mg/dL 7-23 H 6229187041) GLUCOSE (test code = 97 mg/dL 70-110 0710129701) CREATININE (test code = 0.73 mg/dL 0.6-1.25 2540621348) CALCIUM (test code = 8.7 mg/dL 8.6-10.6 3426555777) eGFR Calculation mL/min/1.73m2 (Non-) (test code = 2854334226) eGFR Calculation mL/min/1.73m2 () (test code = 2548392129) GILBERTO (test code = GILBERTO) Association of [...] tests). Lab Interpretation Abnormal (test code = 83030-9) [facility] 11:29:00 Test Item Value Reference Range Interpretation Comments MAGNESIUM (test code = 3448080794) 2.1 mg/dL 1.7-2.4 Lab Interpretation (test code = Normal 22224-9) [facility] WITH [id number] 10:27:00 Test Item Value Reference Range Interpretation [...] RDW-SD (test code = 45.4 fL 38.5-51.6 53870-9) RDW-CV (test code = 14.5 % 12.1-15.4 788-0) PLT (test code = See_Comment H [Automated 777-3) message] The system which generated this result transmit dain reference range : 150 - 328 10*3/ ?L. The reference range was not u sed to interpret th is result as normal/abnormal . MPV (test code = 9.3 fL 9.8-13 L 94592-8) NRBC/100 WBC (test See_Comment [Automat ed code = 1295650790) message] The system which generated this result transmit dain reference range : 0.0 - 10.0 /100 WBCs. The reference range was not used to interpret this result as normal/abnormal . NRBC x10^3 (test code <0.01 See_Comment [Auto mated = 9619147730) message] The system which generated this result transmit dain reference range : 10*3/?L. The reference range was not used to interpret this result as normal/abnormal . GRAN MAT (NEUT) % 79.6 % (test code = 770-8) IMM GRAN % (test code 1.30 % = 1832751866) LYMPH % (test code = 8.6 % 736-9) MONO % (test code = 9.3 % 5905-5) EOS % (test code = 0.8 % 713-8) BASO % (test code = 0.4 % 706-2) GRAN MAT x10^3(ANC) 12.46 10*3/uL 1.99-6.95 H (test code = 9124068655) IMM GRAN x10^3 (test 0.21 10*3/uL 0-0.06 H code = 9927795682) LYMPH x10^3 (test code 1.34 10*3/uL 1.09-3.23 = 731-0) MONO x10^3 (test code 1.45 10*3/uL 0.36-1.02 H = 742-7) EOS x10^3 (test code = 0.13 10*3/uL 0.06-0.53 711-2) BASO x10^3 (test code 0.07 10*3/uL 0.01-0.09 = 704-7) Lab Interpretation Abnormal (test code = 62314-9) [facility] METABOLIC PANEL (NA, K, CL, CO2, GLUCOSE, BUN, CREATININE, CA)2020-04-25 10:03:00 Test Item Value Reference Range Interpretation Comments NA (test code = 133 mmol/L 135-145 L 5115742498) K (test code = 4.6 mmol/L 3.5-5 2543769057) CL (test code = 96 mmol/L 98-108 L 5499350613) CO2 TOTAL (test code = 27 mmol/L 23-31 7992629245) AGAP (test code = 2-16 2202446315) BUN (test code = 21 mg/dL 7-23 1322873154) GLUCOSE (test code = 108 mg/dL 70-110 6477147850) CREATININE (test code = 0.76 mg/dL 0.6-1.25 5882491294) CALCIUM (test code = 9.5 mg/dL 8.6-10.6 9525882810) eGFR Calculation mL/min/1.73m2 (Non-) (test code = 8726929637) eGFR Calculation mL/min/1.73m2 () (test code = 7031158550) GILBERTO (test code = GILBERTO) Association of [...] tests). Lab Interpretation Abnormal (test code = 93687-9) [facility] Test Item Value Reference Range Interpretation Comments MAGNESIUM (test code = 3070053056) 2.4 mg/dL 1.7-2.4 Lab Interpretation (test code = Normal 62211-7) [facility] WITH [id number] 09:48:00 Test Item Value Reference Range Interpretation [...] RDW-SD (test code = 45.7 fL 38.5-51.6 52631-5) RDW-CV (test code = 14.3 % 12.1-15.4 788-0) PLT (test code = See_Comment HH [Automated 777-3) message] The system which generated this result transmit dain reference range : 150 - 328 10*3/ ?L. The reference range was not u sed to interpret th is result as normal/abnormal . MPV (test code = 9.1 fL 9.8-13 L 97828-5) NRBC/100 WBC (test See_Comment [Automat ed code = 0390261104) message] The system which generated this result transmit dain reference range : 0.0 - 10.0 /100 WBCs. The reference range was not used to interpret this result as normal/abnormal . NRBC x10^3 (test code <0.01 See_Comment [Auto mated = 5248425321) message] The system which generated this result transmit dain reference range : 10*3/?L. The reference range was not used to interpret this result as normal/abnormal . GRAN MAT (NEUT) % 78.9 % (test code = 770-8) IMM GRAN % (test code 1.70 % = 2550233347) LYMPH % (test code = 8.7 % 736-9) MONO % (test code = 9.1 % 5905-5) EOS % (test code = 0.9 % 713-8) BASO % (test code = 0.7 % 706-2) GRAN MAT x10^3(ANC) 11.96 10*3/uL 1.99-6.95 H (test code = 1009125760) IMM GRAN x10^3 (test 0.26 10*3/uL 0-0.06 H code = 3668042470) LYMPH x10^3 (test code 1.32 10*3/uL 1.09-3.23 = 731-0) MONO x10^3 (test code 1.38 10*3/uL 0.36-1.02 H = 742-7) EOS x10^3 (test code = 0.13 10*3/uL 0.06-0.53 711-2) BASO x10^3 (test code 0.11 10*3/uL 0.01-0.09 H = 704-7) Lab Interpretation Abnormal (test code = 44378-7) [facility] WITH [id number] 10:40:00 Test Item Value Reference Range Interpretation Comments WBC (test code = See_Comment H [Automated 5990-2) message] The sy stem which generated this result transmitted reference range : 4.20 - 10.70 10*3/?L. The reference range was not used to interpret this result as normal/abnormal . RBC (test code = See_Comment L [Automated 029-8) message] The sy stem which generated this [...] RDW-SD (test code = 46.3 fL 38.5-51.6 79597-0) RDW-CV (test code = 14.5 % 12.1-15.4 788-0) PLT (test code = See_Comment HH [Automated 777-3) message] The sy stem which generated this result transmitted reference range : 150 - 328 10*3/ ?L. The reference r meredith was not used to interpret this result as normal/abnormal . MPV (test code = 9.1 fL 9.8-13 L 80209-2) NRBC/100 WBC (test See_Comment [Automat ed code = 7239922121) message] The system which generated this result transmitted reference range : 0.0 - 10.0 /100 WBCs. The refer ence range was not u sed to interpret th is result as normal/abnormal . NRBC x10^3 (test code <0.01 See_Comment [Auto mated = 7923696932) message] The s ystem which generated this result transmitted reference range : 10*3/?L. The reference range was not used to interpret this result as normal/abnormal . GRAN MAT (NEUT) % 74.7 % (test code = 770-8) IMM GRAN % (test code 2.00 % = 9006508081) LYMPH % (test code = 10.0 % 736-9) MONO % (test code = 11.4 % 5905-5) EOS % (test code = 1.3 % 713-8) BASO % (test code = 0.6 % 706-2) GRAN MAT x10^3(ANC) 9.44 10*3/uL 1.99-6.95 H (test code = 2415736660) IMM GRAN x10^3 (test 0.25 10*3/uL 0-0.06 H code = 8043129166) LYMPH x10^3 (test code 1.26 10*3/uL 1.09-3.23 = 731-0) MONO x10^3 (test code 1.44 10*3/uL 0.36-1.02 H = 742-7) EOS x10^3 (test code = 0.16 10*3/uL 0.06-0.53 711-2) BASO x10^3 (test code 0.07 10*3/uL 0.01-0.09 = 704-7) Lab Interpretation Abnormal (test code = 05608-4) [facility] METABOLIC PANEL (NA, K, CL, CO2, GLUCOSE, BUN, CREATININE, CA)2020-04-24 10:39:00 Test Item Value Reference Range Interpretation Comments NA (test code = 133 mmol/L 135-145 L 3924008856) K (test code = 4.3 mmol/L 3.5-5 6437264763) CL (test code = 99 mmol/L 98-108 3447200718) CO2 TOTAL (test code = 29 mmol/L 23-31 9140700828) AGAP (test code = 2-16 3451518227) BUN (test code = 20 mg/dL 7-23 4970284472) GLUCOSE (test code = 109 mg/dL 70-110 2456339191) CREATININE (test code = 0.78 mg/dL 0.6-1.25 9846064409) CALCIUM (test code = 8.4 mg/dL 8.6-10.6 L 1939779983) eGFR Calculation mL/min/1.73m2 (Non-) (test code = 6216424647) eGFR Calculation mL/min/1.73m2 () (test code = 8098167831) GILBERTO (test code = GILBERTO) Association of [...] tests). Lab Interpretation Abnormal (test code = 73356-0) [facility] 10:[facility]:00 Test Item Value Reference Range Interpretation Comments MAGNESIUM (test code = 7010628911) 2.2 mg/dL 1.7-2.4 Lab Interpretation (test code = Normal 71861-8) [facility] P[facility] W [id number] 09:30:06 1. ?Overall, no significant change in [...] reviewed this study and agree with theabove report.[facility] TH[facility]AX W [id number] 03:46:28 Acute pulmonary emboli in the anterior [...] andmorphology. No significant pericardial thickening or effusion. Illuxjon-ud-vpmqi cardiomediastinal shift. Scattered subcentimeter mediastinal and bilateral hilar nodes, nonspecificbut likely reactive. No suspicious or aggressive osseous lesion. No lines/tubes in place in the chest. Abdominal drain in the left upperquadrant. Multiple loculated gas containing collections with peripheral enhancementin the upper abdomen, partially visualized. Please refer to the same-dayabdomen ?report for detailed findings in the abdomen. [facility], Radiant Results Inft User - 04/23/2020 10:47 [...] andmorphology. No significant pericardial thickening or effusion. Jvcimzcx-jg-hkoco cardiomediastinal shift.Scattered subcentimeter mediastinal and bilateral hilar [...] reviewed this study and agree with theabove report.[facility]ID NOW RAPID TESTING)2020-04-23 17:45:00 Test Item Value Reference Range Interpretation Comments SARS-CoV-2 Rapid ID NOW Not Detected Not Detected (test code = 26320-5) GILBERTO (test code = GILBERTO) ID NOW COVID-19 Assay is an isothermal nucleic acid amplification test intended for the qualitative detection of nucleic acid from SARS-CoV-2 viral RNA in nasopharyngeal (UI [employer]ELOPER) specimens. It is used under Emergency Use [...] indicated. Lab Interpretation Normal (test code = 25094-9) [facility] 17:40:00 Test Item Value Reference Range Interpretation Comments PALB (test code = 64936-6) 11.8 mg/dL 18-45 L Lab Interpretation (test code = Abnormal 23652-5) [facility] [id number] 15:00:55 Stable appearance of left pleural effusion [...] silhouette is normal. No acute osseous abnormality. [facility], Radiant Results Inft User - 04/23/2020 10:02 [...] reviewed this study and agree with theabove report.[facility]OT[facility] [id number] 14:14:00 Test Item Value Reference Range Interpretation Comments K (test code = 3228358912) 4.8 mmol/L 3.5-5 Lab Interpretation (test code = Normal 31031-9) [facility] WITH [id number] 11:30:00 Test Item Value Reference Range Interpretation [...] RDW-SD (test code = 45.0 fL 38.5-51.6 86807-9) RDW-CV (test code = 14.5 % 12.1-15.4 788-0) PLT (test code = See_Comment HH [Automated 777-3) message] The sy stem which generated this result transmitted reference range : 150 - 328 10*3/ ?L. The reference r meredith was not used to interpret this result as normal/abnormal . MPV (test code = 9.4 fL 9.8-13 L 53652-0) IPF % (test code = 1.6 % 1.2-10.7 Platelet count 9935892901) measured by fluorescence method. NRBC/100 WBC (test See_Comment [Automat ed code = 4970211477) message] The system which generated this result transmitted reference range : 0.0 - 10.0 /100 WBCs. The refer ence range was not u sed to interpret th is result as normal/abnormal . NRBC x10^3 (test code <0.01 See_Comment [Auto mated = 4415499664) message] The s ystem which generated this result transmitted reference range : 10*3/?L. The reference range was not used to interpret this result as normal/abnormal . GRAN MAT (NEUT) % 73.4 % (test code = 770-8) IMM GRAN % (test code 1.80 % = 7742702305) LYMPH % (test code = 12.6 % 736-9) MONO % (test code = 10.8 % 5905-5) EOS % (test code = 1.0 % 713-8) BASO % (test code = 0.4 % 706-2) GRAN MAT x10^3(ANC) 9.57 10*3/uL 1.99-6.95 H (test code = 4210969764) IMM GRAN x10^3 (test 0.24 10*3/uL 0-0.06 H code = 4276881113) LYMPH x10^3 (test code 1.64 10*3/uL 1.09-3.23 = 731-0) MONO x10^3 (test code 1.41 10*3/uL 0.36-1.02 H = 742-7) EOS x10^3 (test code = 0.13 10*3/uL 0.06-0.53 711-2) BASO x10^3 (test code 0.05 10*3/uL 0.01-0.09 = 704-7) Lab Interpretation Abnormal (test code = 15305-5) [facility] METABOLIC PANEL (NA, K, CL, CO2, GLUCOSE, BUN, CREATININE, CA)2020-04-23 10:52:00 Test Item Value Reference Range Interpretation Comments NA (test code = 132 mmol/L 135-145 L 6741362298) K (test code = 5.7 mmol/L 3.5-5 H 6156467813) CL (test code = 97 mmol/L 98-108 L 4741265644) CO2 TOTAL (test code = 26 mmol/L 23-31 7647830184) AGAP (test code = 2-16 2261470925) BUN (test code = 34 mg/dL 7-23 H 8999780996) GLUCOSE (test code = 101 mg/dL 70-110 7892213113) CREATININE (test code = 0.85 mg/dL 0.6-1.25 6187580816) CALCIUM (test code = 9.0 mg/dL 8.6-10.6 0566866689) eGFR Calculation mL/min/1.73m2 (Non-) (test code = 0155954698) eGFR Calculation mL/min/1.73m2 () (test code = 9736634189) GILBERTO (test code = GILBERTO) Association of [...] tests). Lab Interpretation Abnormal (test code = 35474-2) [facility] 10:52:00 Test Item Value Reference Range Interpretation Comments MAGNESIUM (test code = 2123698606) 2.3 mg/dL 1.7-2.4 Lab Interpretation (test code = Normal 56579-8) [facility] [id number] 13:26:55 FINDINGS/IMPRESSION: 1. ?A left pigtail chest [...] pleural effusion COMPARISON: Chest x-ray on 04/21/2020 [facility], Radiant Results Inft User - 04/22/2020 [...] reviewed this study and agree with theabove report.[facility] VW 2020-04-22 13:24:27FINDINGS/IMPRESSION: 1. [...] in bed COMPARISON: Chest x-ray on 04/20/2020 [facility], Radiant Results Inft User - 04/22/2020 8:25 [...] this study and agree with theabove report. [facility] (NA, K, CL, CO2, GLUCOSE, BUN, CREATININE, CA)2020-04-22 11:49:00 Test Item Value Reference Range Interpretation Comments NA (test code = 132 mmol/L 135-145 L 5050223247) K (test code = 4.7 mmol/L 3.5-5 3267540386) CL (test code = 97 mmol/L 98-108 L 9587118127) CO2 TOTAL (test code = 30 mmol/L 23-31 5300740166) AGAP (test code = 2-16 2359895779) BUN (test code = 28 mg/dL 7-23 H 4963836409) GLUCOSE (test code = 117 mg/dL 70-110 H 2843081433) CREATININE (test code = 0.88 mg/dL 0.6-1.25 2725386560) CALCIUM (test code = 8.8 mg/dL 8.6-10.6 2427909501) eGFR Calculation mL/min/1.73m2 (Non-) (test code = 6544911425) eGFR Calculation mL/min/1.73m2 () (test code = 1386416530) GILBERTO (test code = GILBERTO) Association of [...] tests). Lab Interpretation Abnormal (test code = 27011-0) [facility] 11:49:00 Test Item Value Reference Range Interpretation Comments MAGNESIUM (test code = 8188006024) 2.4 mg/dL 1.7-2.4 Lab Interpretation (test code = Normal 36809-5) [facility] WITH [id number] 11:23:00 Test Item Value Reference Range Interpretation [...] RDW-SD (test code = 44.9 fL 38.5-51.6 31651-6) RDW-CV (test code = 14.4 % 12.1-15.4 788-0) PLT (test code = See_Comment HH [Automated 777-3) message] The sy stem which generated this result transmitted reference range : 150 - 328 10*3/ ?L. The reference r meredith was not used to interpret this result as normal/abnormal . MPV (test code = 9.5 fL 9.8-13 L 07825-9) NRBC/100 WBC (test See_Comment [Automat ed code = 8332864141) message] The system which generated this result transmitted reference range : 0.0 - 10.0 /100 WBCs. The refer ence range was not u sed to interpret th is result as normal/abnormal . NRBC x10^3 (test code <0.01 See_Comment [Auto mated = 4470512400) message] The s ystem which generated this result transmitted reference range : 10*3/?L. The reference range was not used to interpret this result as normal/abnormal . GRAN MAT (NEUT) % 80.3 % (test code = 770-8) IMM GRAN % (test code 1.50 % = 5280585949) LYMPH % (test code = 7.2 % 736-9) MONO % (test code = 9.7 % 5905-5) EOS % (test code = 0.7 % 713-8) BASO % (test code = 0.6 % 706-2) GRAN MAT x10^3(ANC) 9.99 10*3/uL 1.99-6.95 H (test code = 5416200167) IMM GRAN x10^3 (test 0.19 10*3/uL 0-0.06 H code = 3765925650) LYMPH x10^3 (test code 0.90 10*3/uL 1.09-3.23 L = 731-0) MONO x10^3 (test code 1.21 10*3/uL 0.36-1.02 H = 742-7) EOS x10^3 (test code = 0.09 10*3/uL 0.06-0.53 711-2) BASO x10^3 (test code 0.07 10*3/uL 0.01-0.09 = 704-7) Lab Interpretation Abnormal (test code = 75997-4) [facility] WITH [id number] 14:15:00 Test Item Value Reference Range Interpretation [...] RDW-SD (test code = 44.4 fL 38.5-51.6 03185-5) RDW-CV (test code = 14.2 % 12.1-15.4 788-0) PLT (test code = See_Comment HH [Automated 777-3) message] The sy stem which generated this result transmitted reference range : 150 - 328 10*3/ ?L. The reference r meredith was not used to interpret this result as normal/abnormal . MPV (test code = 9.0 fL 9.8-13 L 50348-3) NRBC/100 WBC (test See_Comment [Automat ed code = 9281455985) message] The system which generated this result transmitted reference range : 0.0 - 10.0 /100 WBCs. The refer ence range was not u sed to interpret th is result as normal/abnormal . NRBC x10^3 (test code <0.01 See_Comment [Auto mated = 8201079176) message] The s ystem which generated this result transmitted reference range : 10*3/?L. The reference range was not used to interpret this result as normal/abnormal . GRAN MAT (NEUT) % 76.4 % (test code = 770-8) IMM GRAN % (test code 1.30 % = 3370605536) LYMPH % (test code = 10.9 % 736-9) MONO % (test code = 9.6 % 5905-5) EOS % (test code = 1.1 % 713-8) BASO % (test code = 0.7 % 706-2) GRAN MAT x10^3(ANC) 9.41 10*3/uL 1.99-6.95 H (test code = 6029912725) IMM GRAN x10^3 (test 0.16 10*3/uL 0-0.06 H code = 5940617170) LYMPH x10^3 (test code 1.34 10*3/uL 1.09-3.23 = 731-0) MONO x10^3 (test code 1.18 10*3/uL 0.36-1.02 H = 742-7) EOS x10^3 (test code = 0.13 10*3/uL 0.06-0.53 711-2) BASO x10^3 (test code 0.08 10*3/uL 0.01-0.09 = 704-7) Lab Interpretation Abnormal (test code = 22134-4) [facility] METABOLIC PANEL (NA, K, CL, CO2, GLUCOSE, BUN, CREATININE, CA)2020-04-21 13:47:00 Test Item Value Reference Range Interpretation Comments NA (test code = 130 mmol/L 135-145 L 7922949135) K (test code = 4.8 mmol/L 3.5-5 5394918889) CL (test code = 95 mmol/L 98-108 L 1319057720) CO2 TOTAL (test code = 29 mmol/L 23-31 4724322207) AGAP (test code = 2-16 9118024212) BUN (test code = 25 mg/dL 7-23 H 1949493048) GLUCOSE (test code = 98 mg/dL 70-110 2924426020) CREATININE (test code = 0.78 mg/dL 0.6-1.25 9943644911) CALCIUM (test code = 8.2 mg/dL 8.6-10.6 L 4108769681) eGFR Calculation mL/min/1.73m2 (Non-) (test code = 8417800824) eGFR Calculation mL/min/1.73m2 () (test code = 1249051765) GILBERTO (test code = GILBERTO) Association of [...] tests). Lab Interpretation Abnormal (test code = 74310-6) [facility]00 Test Item Value Reference Range Interpretation Comments MAGNESIUM (test code = 7339830081) 2.1 mg/dL 1.7-2.4 Lab Interpretation (test code = Normal 92808-8) [facility] 21:30:00 Test Item Value Reference Range Interpretation Comments PALB (test code = 24833-9) 9.3 mg/dL 18-45 L Lab Interpretation (test code = Abnormal 63241-1) [facility] [id number] 14:32:00 Test Item Value Reference Range Interpretation Comments BODY FLUID CULT No organisms isolated (test code = 611-4) Gram stain (test Occasional (Rare) code = 664-3) Polymorphonuclear leukocytes [facility] [id number] 13:09:21EXAM: XR CHEST 1 VW HISTORY: ct [...] heart and great vessels are normal. ? [facility], Radiant Results Inft User - 04/20/2020 8:10 [...] The heart and great vessels are normal. [facility] (NA, K, CL, CO2, GLUCOSE, BUN, CREATININE, CA)2020-04-20 11:00:00 Test Item Value Reference Range Interpretation Comments NA (test code = 132 mmol/L 135-145 L 1280065333) K (test code = 5.2 mmol/L 3.5-5 H 5893262337) CL (test code = 100 mmol/L 98-108 5858986383) CO2 TOTAL (test code = 24 mmol/L 23-31 7781010888) AGAP (test code = 2-16 5597475892) BUN (test code = 19 mg/dL 7-23 9317188948) GLUCOSE (test code = 121 mg/dL 70-110 H 5960725623) CREATININE (test code = 0.77 mg/dL 0.6-1.25 8904780058) CALCIUM (test code = 8.2 mg/dL 8.6-10.6 L 2151611682) eGFR Calculation mL/min/1.73m2 (Non-) (test code = 4072205188) eGFR Calculation mL/min/1.73m2 () (test code = 6794448783) GILBERTO (test code = GILBERTO) Association of [...] tests). Lab Interpretation Abnormal (test code = 33645-6) [facility]00 Test Item Value Reference Range Interpretation Comments MAGNESIUM (test code = 5397590202) 2.1 mg/dL 1.7-2.4 Lab Interpretation (test code = Normal 29068-1) [facility] 11:00:00 Test Item Value Reference Range Interpretation Comments PHOSPHORUS (test code = 9544221595) 3.9 mg/dL 2.5-5 Lab Interpretation (test code = Normal 46529-9) [facility] WITH [id number] 10:23:00 Test Item Value Reference Range Interpretation [...] RDW-SD (test code = 45.2 fL 38.5-51.6 59165-1) RDW-CV (test code = 14.2 % 12.1-15.4 788-0) PLT (test code = See_Comment HH [Automated 777-3) message] The system which generated this result transmit dain reference range : 150 - 328 10*3/ ?L. The reference range was not u sed to interpret th is result as normal/abnormal . MPV (test code = 9.3 fL 9.8-13 L 07103-1) NRBC/100 WBC (test See_Comment [Automat ed code = 5162889446) message] The system which generated this result transmit dain reference range : 0.0 - 10.0 /100 WBCs. The reference range was not used to interpret this result as normal/abnormal . NRBC x10^3 (test code <0.01 See_Comment [Auto mated = 5328835284) message] The system which generated this result transmit dain reference range : 10*3/?L. The reference range was not used to interpret this result as normal/abnormal . GRAN MAT (NEUT) % 79.8 % (test code = 770-8) IMM GRAN % (test code 1.50 % = 4268298502) LYMPH % (test code = 9.8 % 736-9) MONO % (test code = 7.5 % 5905-5) EOS % (test code = 0.6 % 713-8) BASO % (test code = 0.8 % 706-2) GRAN MAT x10^3(ANC) 10.64 10*3/uL 1.99-6.95 H (test code = 1097513765) IMM GRAN x10^3 (test 0.20 10*3/uL 0-0.06 H code = 6322615783) LYMPH x10^3 (test code 1.31 10*3/uL 1.09-3.23 = 731-0) MONO x10^3 (test code 1.00 10*3/uL 0.36-1.02 = 742-7) EOS x10^3 (test code = 0.08 10*3/uL 0.06-0.53 711-2) BASO x10^3 (test code 0.10 10*3/uL 0.01-0.09 H = 704-7) Lab Interpretation Abnormal (test code = 13330-4) [facility] [id number] 12:25:53 No residual pleural effusion noted. Preliminary [...] reviewed this study and agree with theabove report.[facility] (NA, K, CL, CO2, GLUCOSE, BUN, CREATININE, CA)2020-04-19 11:09:00 Test Item Value Reference Range Interpretation Comments NA (test code = 133 mmol/L 135-145 L 5206388471) K (test code = 4.2 mmol/L 3.5-5 3224274664) CL (test code = 101 mmol/L 98-108 7586316137) CO2 TOTAL (test code = 26 mmol/L 23-31 6670839671) AGAP (test code = 2-16 0275500959) BUN (test code = 15 mg/dL 7-23 2534622389) GLUCOSE (test code = 113 mg/dL 70-110 H 2709356015) CREATININE (test code = 0.73 mg/dL 0.6-1.25 1143720390) CALCIUM (test code = 8.1 mg/dL 8.6-10.6 L 1350907616) eGFR Calculation mL/min/1.73m2 (Non-) (test code = 7141939949) eGFR Calculation mL/min/1.73m2 () (test code = 7615186214) GILBERTO (test code = GILBERTO) Association of [...] tests). Lab Interpretation Abnormal (test code = 01778-7) [facility] 11:09:00 Test Item Value Reference Range Interpretation Comments MAGNESIUM (test code = 4525587197) 2.1 mg/dL 1.7-2.4 Lab Interpretation (test code = Normal 21811-3) [facility] 11:09:00 Test Item Value Reference Range Interpretation Comments PHOSPHORUS (test code = 9807729234) 3.9 mg/dL 2.5-5 Lab Interpretation (test code = Normal 56323-7) [facility] WITH [id number] 10:59:00 Test Item Value Reference Range Interpretation Comments WBC (test code = See_Comment H [Automated 6790-2) message] The sy stem which generated this result transmitted reference range : 4.20 - 10.70 10*3/?L. The reference range was not used to interpret this result as normal/abnormal . RBC (test code = See_Comment L [Automated 078-8) message] The sy stem which generated this [...] RDW-SD (test code = 46.0 fL 38.5-51.6 52359-7) RDW-CV (test code = 14.2 % 12.1-15.4 788-0) PLT (test code = See_Comment HH [Automated 777-3) message] The sy stem which generated this result transmitted reference range : 150 - 328 10*3/ ?L. The reference r meredith was not used to interpret this result as normal/abnormal . MPV (test code = 9.3 fL 9.8-13 L 09770-1) NRBC/100 WBC (test See_Comment [Automat ed code = 4061980250) message] The system which generated this result transmitted reference range : 0.0 - 10.0 /100 WBCs. The refer ence range was not u sed to interpret th is result as normal/abnormal . NRBC x10^3 (test code <0.01 See_Comment [Auto mated = 2615741592) message] The s ystem which generated this result transmitted reference range : 10*3/?L. The reference range was not used to interpret this result as normal/abnormal . GRAN MAT (NEUT) % 79.2 % (test code = 770-8) IMM GRAN % (test code 1.00 % = 0530001154) LYMPH % (test code = 11.4 % 736-9) MONO % (test code = 6.7 % 5905-5) EOS % (test code = 1.0 % 713-8) BASO % (test code = 0.7 % 706-2) GRAN MAT x10^3(ANC) 9.49 10*3/uL 1.99-6.95 H (test code = 6463982685) IMM GRAN x10^3 (test 0.12 10*3/uL 0-0.06 H code = 2298414224) LYMPH x10^3 (test code 1.36 10*3/uL 1.09-3.23 = 731-0) MONO x10^3 (test code 0.80 10*3/uL 0.36-1.02 = 742-7) EOS x10^3 (test code = 0.12 10*3/uL 0.06-0.53 711-2) BASO x10^3 (test code 0.08 10*3/uL 0.01-0.09 = 704-7) Lab Interpretation Abnormal (test code = 52631-9) [facility] [id number] 22:29:00 Test Item Value Reference Range Interpretation Comments Blood Culture-Aerobic No organisms No growth Previo us (test code = 26304-6) isolated prelim inary verified result was Culture In Progress on 04/13/2020 at 06 06 CDT Blood Culture positive. No growth AA Previous Culture-Anaerobic See Blood Culture preli minary (test code = 25491-5) Workup for verifi ed result additional was Culture In information. Progress on 04/12/2020 at 18 01 CDT Lab Interpretation Abnormal (test code = 65383-3) [facility]UBE WITH IMAGING 2020-04-18 15:38:00Successful image guided 10 Slovenian pigtail chest tube insertioninto the left pleural [...] was obtained. Prior to beginning the procedure, [place] Protocolwas performed to confirm the patient's identity [...] pleural space. The tractwas dilated to 10 Slovenian, and a 10 Slovenian pigtail chest tube was insertedand coiled within [...] demonstrated a large amount of pleural fluid. [facility], Radiant Results Inft User - 04/18/2020 [...] was obtained. Prior to beginning the procedure, [place] Protocolwas performed to confirm the patient's identity [...] pleural space. The tractwas dilated to 10 Slovenian, and a 10 Slovenian pigtail chest tube was insertedand coiled within [...] of pleural fluid. IMPRESSIONSuccessful image guided 10 Slovenian pigtail chest tube insertioninto the left pleural space. PLAN: Post procedure chest radiograph will be obtained.[facility] [id number] 13:37:38 Hazy left midlung opacity, may represent [...] reviewed this study and agree with the abovereport.[facility] (NA, K, CL, CO2, GLUCOSE, BUN, CREATININE, CA)2020-04-18 11:18:00 Test Item Value Reference Range Interpretation Comments NA (test code = 134 mmol/L 135-145 L 6943109380) K (test code = 4.4 mmol/L 3.5-5 4923439297) CL (test code = 102 mmol/L 98-108 9990672119) CO2 TOTAL (test code = 26 mmol/L 23-31 4835343880) AGAP (test code = 2-16 2725120269) BUN (test code = 12 mg/dL 7-23 2267782277) GLUCOSE (test code = 106 mg/dL 70-110 2315610235) CREATININE (test code = 0.74 mg/dL 0.6-1.25 6971279066) CALCIUM (test code = 7.5 mg/dL 8.6-10.6 L 9144044078) eGFR Calculation mL/min/1.73m2 (Non-) (test code = 5160262410) eGFR Calculation mL/min/1.73m2 () (test code = 2816684731) GILBERTO (test code = GILBERTO) Association of [...] tests). Lab Interpretation Abnormal (test code = 21084-1) [facility] Test Item Value Reference Range Interpretation Comments MAGNESIUM (test code = 4145928147) 2.0 mg/dL 1.7-2.4 Lab Interpretation (test code = Normal 33546-8) [facility]2020-08-26 11:18:00 Test Item Value Reference Range Interpretation Comments PHOSPHORUS (test code = 8836326618) 3.4 mg/dL 2.5-5 Lab Interpretation (test code = Normal 43253-0) [facility] WITH [id number] 10:46:00 Test Item Value Reference Range Interpretation [...] RDW-SD (test code = 46.5 fL 38.5-51.6 41308-2) RDW-CV (test code = 14.5 % 12.1-15.4 788-0) PLT (test code = See_Comment HH [Automated 777-3) message] The system which generated this result transmit dani reference range : 150 - 328 10*3/ ?L. The reference range was not u sed to interpret th is result as normal/abnormal . MPV (test code = 9.6 fL 9.8-13 L 14357-3) NRBC/100 WBC (test See_Comment [Automat ed code = 7128874509) message] The system which generated this result transmit dain reference range : 0.0 - 10.0 /100 WBCs. The reference range was not used to interpret this result as normal/abnormal . NRBC x10^3 (test code <0.01 See_Comment [Auto mated = 1482816991) message] The system which generated this result transmit dain reference range : 10*3/?L. The reference range was not used to interpret this result as normal/abnormal . GRAN MAT (NEUT) % 82.1 % (test code = 770-8) IMM GRAN % (test code 0.90 % = 3193737319) LYMPH % (test code = 9.2 % 736-9) MONO % (test code = 6.6 % 5905-5) EOS % (test code = 0.7 % 713-8) BASO % (test code = 0.5 % 706-2) GRAN MAT x10^3(ANC) 10.02 10*3/uL 1.99-6.95 H (test code = 0319462132) IMM GRAN x10^3 (test 0.11 10*3/uL 0-0.06 H code = 1951329068) LYMPH x10^3 (test code 1.12 10*3/uL 1.09-3.23 = 731-0) MONO x10^3 (test code 0.80 10*3/uL 0.36-1.02 = 742-7) EOS x10^3 (test code = 0.08 10*3/uL 0.06-0.53 711-2) BASO x10^3 (test code 0.06 10*3/uL 0.01-0.09 = 704-7) Lab Interpretation Abnormal (test code = 15942-7) [facility] [id number] 20:01:00 Test Item Value Reference Range Interpretation Comments Blood Culture-Aerobic No organisms No growth Previo us (test code = 02314-3) isolated prelim inary verified result was Culture [...] Culture-Anaerobic isolated preliminar y (test code = 22827-5) verifi ed result was Culture In Progress [...] CDT Lab Interpretation Normal (test code = 05321-3) [facility] [id number] 19:38:57 FINDINGS/IMPRESSION: There are 2 left-sided chest [...] 2:35 PM on 04/17/[address] Mathieu Chapa.[facility] HospitalCyto Pleural [id number] 17:29:00 Test Item Value Reference Range Interpretation Comments Case Report (test code Non-Gynecologic = 1721296332) Cytology ?Case: [id number] ?Authorizing Provider: ?Vance Stafford MD ?Collected: ? 04/16/2020 1650 ?Ordering Location: ? ? Surgery ([facility]C) ? Received: ?04/16/2020 1809 ?Pathologist: ? Alice Aj MD ? Specimen: ? ?PLEURAL, LEFT, EFFUSION ? Final Diagnosis (test d0ylsQGiMQLgv2qiCERjdM code = 4007960138) FuZzEwMzNcZnRuYmpcdWMx WOssxcKvCKebi7RvU1IbZq AwMFxhbnNpXGRlZmxhbmcx CVFnBSF1cuRyFTXtWBbkQG QqSIpjIv0lgIPkkHltYfLp QSJxn6jtlsLUutlpkPk4m6 czAOUoPpJ5bJXySIapM5jx ouWunXQmGMGlQBe6aU31FZ EwuF0vqJYqAVqsyvIwRgW4 ATmuGYMtUbY8NKIdqUUeYF VfI7vvFZLlJLgdSPMuRYxy nMEwBJN4sHszu4B3yPGpdF KouKubOhBmQsUiTYXXk6Sh LMo9kTkoW6NcEBLmVtL5bM QgUGFyYWdyYXBoIEZvbnQ7 cM92VQkxvoH4zDWhd0Zfb7 9pw571nR1srMQcXCY7UMYn RTVeyXLwVILxFBL7EUTanG LsC6lmZHkzNP0icfiaDNX6 MFxtYXJndDcyMFxtYXJnYj WpqROcCKMnzFbbISlst360 FVH5NtXkAD0kP2Hqr1K1aY 9maXRcZGVmdGFiNzIwXGZv ot3gqUElHSkwx8HbOGH9cz G0jFJeeMKbFNTeIC55Knrx c2KaCfbqORS0FOSssmHal0 Sbg0taEnEbcrMkQ2aiD5Fg ZHJoZWFkXHBnYnJkcmZvb3 Mus5BejSKreVi8g9rdGETy LDQwsKbge7xjXGC5SWPhU4 R0aVUeg0pgPEjiCWLdpTT1 nkLrINYbsLIqW4FjmW2zTI mxAO4lhmt8g9dtWtAiUJ9v yzctl6mnWGlmCIQzAOX2Bl BoCEXrv7JnvobxWhFkg7Ii zYYuBBpoV66gw919WAIsbn YrM6kvbTGmxglclULlbkjs UYcpdoG7QIVsevKvfMxcsQ 5xMwJuUcJrOUyvVL8fBVSb D4cgmWOoCKReVGCdR2xyUs YpwA8roPwdCKrmKpYkWrJn MFxiIEEuICBQTEVVUkEsIE vYRvD9ATVOJ1CHE1DASGNP SVMgRkxVSURccGFyICAgIC YuXU6cHN5RONQPMGRCXQ2F RTABVlSLS34ERdQCHBmXVJ 2IEXNRD0JFLFeOU4ohMAZk ICAgICAgLSBORUdBVElWRS JQO7UqDYNPJPkGSN9GPLHC TExTXHBsYWluXGYxXGZzMj BcbGFuZzEwMzNcaGljaFxm POzsQmPpNJTuRHclU7zfUi ArCoGbEGEbNYABKEDKB97V GJ3TLPbaCCD7n8fkkUUsIA PpkXLqJrLmZCYnQXAoq1ik ZGVmbGFuZzEwMzNcZnRuYm wljMUtOWOfTdJde9oui487 uNGvj1yfFHQfHkT3zASuTE PokIrmeie9wSqnBbRlRZZs g9ysdaMdNoOlVRWeAMIuEX DsjBJdM814KZWvAWvnj3ym o6TtMEXdtLSxb9P8FXEFNI gjKsLbC790p1soz4qjdwRa zJU4TWFrCQQ8VLmgotRhjp D2CPbjpALbRnE4WFihnvBo GEcahfKwriKdZqg0FUSfX6 43MHO4lPseb0dlKTW9FOYs VKBeCoosWn8vuVOoK102FP XlWFFOBUKrtHl5IEFfsnXe qxAhpJKFw720C832a6rkWI TxpdGqkItCtjonb6gdX172 XHBhcGVydzEyMjQwXHBhcG XzrCU1YWBzIJ9vxhksVYlt IEsnELWsjeD4OSSbtEVaU9 FcINBmTO5ezahvABH0JRrx JWIaFWL6GfUuRCUen5Uojr q2IqCxtm7lzp41BTN7w6Fl bCjgHTA9GIF6VyLiJa9lbN ZzTRJeXH8hEzIfrGCaUFLj wr38xIfyQMmgkqAveE4sNr PvHZGzmTXaSITlJY5zaDEm DAYwjJ1kztccIGAqRnXlnh tqHEBrvWligvYpQb0mwJkg WGC6MYkfW2kwmM2tEzI7ME jaQ2bkcT5eFIj1QIuqgRV2 AXUwbT4eZA7lddmdt0dxPP zlXIlpGCKwuzO7zdC9UCUk pLBaE7FhkK2eBVFxYK7cty nkp4cfUQK4IGpsRBMgVKH0 VqXzJGIhw2Uuvqk4FkMzk1 ZbdDAkDVbkU30gq780YUJb zqXbL5ftsZXwxwbvuLMhbw pbPLizxeU8UYPiJIHaCHdm XGYxXGZzMjBcbGFuZzEwMz NcaGljaFxmMVxkYmNoXGYx UXjhO2sbIjQvC1HcOBMkPo SjzGZvRIxdaPY2TVTmEWKo v95rbRq7BPWthrepe0OrTT FdpJDcvWVlrZ1cebQjx6ue BNOcEXJgJRJsG1CoBSR3wD LmEEZlxMUvoEV0FF0odcKc QQ3vYMVwGizwkoNtcRJtwh JjDKSuXZezr8trFO1kNYNq iIpmuP7riEQ8AXGwc5swrO XrvDOho3qpi8LfvhHbJGhv NJAxZZliYAQgDQIfLQ9uBT GbbFGlkoLca9K2HnpllYIc ftitVgaxguD7MNqrudidJI LpBYgpH4euIxLxNTLzfZpt Bhyse7QcOCUuZATlJqfqjM FyfX0= Final Diagnosis Comment r5vfgBDwESDygYQrCeKkAD (test code = ZpCLCww9otHPNwtNTyIhSr 3222368237) MzNcZnRuYmpcdWMxXGRlZm Zrv2foe456kGJnt5vtKGVw KeL6fWKrDHHubAVoH066a0 nuq0cpetUglPV6IUVxIGD0 IRcjuzTnekC0PIacwAGdAs K9TOuroySqOYnxklRrliQj Hok8DAWnK688ZBR9fQtgi7 byXEX0FLWcUFDdIjIrHq5b oXOrB500CZFrAMJCUYPavG r0RYBonwBxpiSvrHUJm164 A661r4doJHLsfeVlvFaKxl mlt2rsI299RDLwjWHfttGp SeKhSZTkgRTdpJY0RCQyZY 9xuoeoOZA1LRsmEGBwlaRx RCGnjKUkK6C4UqLgyVBnI2 QhNAxwHPOxbhx8NsOrKc1u gIVuhLF4VGitj1jpr4vraX VpSvx3QIIrOgMcKuibMZty h0Bxx4bpRLTqtz6dPNJ0uH ZxsMtuk8S7pBDmSRGcqNFm reVoVJRcOfZ5YKlhGL7ckb 87GMSdCAE3pu6paEVduDrd jjMfrDClNSkcZ8DlRQZhr3 54ELJjG2WtNWNdj3Q0woDq NdLeSHTdnIM3lrW1VSWcKO m9sEHwywL1rfFdaOAiZ1kd qJ9jWGkqHR7sgxjww0dqZU K6IBfzDKXaiBI6gpclPHad XNHtJdW9mnUlkZOrFZKvwI ivUZtkj417ZWC9UlFmMMDo o6GmD5QtgTthT56vlMbeT6 2fSESvnAagmO2xdUngyS5j ZjBcZnMyNFxxbFxwbGFpbl xmMFxmczIwXGxhbmcxMDMz UUomS5nkTbKuETAqcItyBX crt6CnFINaFXYzArWoM96i KOQuq1tby9QwnOv5CLTvaV 2mkVBtrSA7vF6wVIseyFni vQZmAY5ywM2gcvYdpRZuHS I6eh0ysAajhlpeFbX4LWd5 jNGtm2N8uBRuNSFqSIWsxD WjuU6fSSUyt99usSM5FK99 JSpnkQptDE4zxSYhSP3aPu 6xsARyaPhgXY28IEFqoRzz EUuxHU94qIFuSTNjTVogTA J9 Clinical Information Clinical Hx: ?Total (test code = colectomy complicated 2532991405) . Requested per consulting surgery team. Gross Description (test b9iyxGGzRGJfmJRpYwEpVA code = 3591583161) HgQYFqm7lsIXHiwXDcDzFy MzNcZnRuYmpcdWMxXGRlZm Vsp2nxo079hHYzd9vrGEYr XvD8xQQhAALapREnW982x8 zyx8odvzHvwAJ9SHAvFQG2 TKwubrUzqqF1GNtyjJAsYm V8IJvnzuOkCQpzkhMtqyTg Bpa3TZAdX497YFD8lAirk4 boCEP3MXEuATGeHbShRt7l mGSlJ303SLFjFDLHWSFsaL l5DWWaivSdwrDsaVVFk411 A921y1deDTNysgXnoUnPhu pxv8tdE050VUSsmDEgbgLn RvLlWTTfnBAhbTJ1SPFeAD 0yisjhICE2MVxoLXNxmmGk QJGksEAxE9E3ZyPieMQwZ6 CcHQcvQIHgfni6PfXcBn4u rNGjwCU1SArsp1lic1taoM IgIsq4QTVgQxKmEchdLGgj f4Zfg9hxTDKmut8dJMM8kQ AskZmdd6E0pSCxPFNiyGVo ruGdSPNkWrR7BWxpJM3euu 87YDQmYNJ5vf4bnIVasBkm grWktDRoGYzeA5MdCCDij7 27FDEfX0PhVIDwp1N4atUl PuStWHXvwOJ3jqF0NVVzDJ e2tZVdjyV0wqVquBBnI1xh uK0wIEonYB7qucequ7nlHY Y1ONwhVQDyoZI3guooCElv ZZYlEgG1suSutSQrNDEhbV liDEktj523MEX3LpRmQLGg z0RhT5WlfDxzP95ftMwpG8 9uMRWwcGhxtQ3egJvgzY7f ZjBcZnMyNFxxbFxwbGFpbl xmMFxmczIwXGxhbmcxMDMz XYjzE0usPxKbHBEwcAfvOK fhs2VoEUMcIFMyObDuKWYg LERUPWFAUtNfIJqUWkY2JF XWQ8PZY3NQNUGZLGMdBjdA KNLslXSeTKRbA3KnxnVpOA MtNCYnONiaHGJoVEGoY4Bt h2ZyfUKfpN30ZJKwkQwmXW xwYXIgUHJlcGFyZWQgMiBz mOdvQCVnZSHvNPQlNW1cB6 1uHA98XNK6pF3unYknNCBs qyXkIHIAc17rqt44v7v0GO A5tI8bvBpsDTAdGUOdgfX1 aS6mKFmsHLQ4 Embedded Images (test code = 5576418112) [facility] [id number] 13:05:21EXAM: XR CHEST 1 VW HISTORY: post [...] chest is little different than noted yesterday.[facility] WITH [id number] 11:18:00 Test Item Value Reference Range Interpretation [...] RDW-SD (test code = 47.8 fL 38.5-51.6 93695-5) RDW-CV (test code = 14.7 % 12.1-15.4 788-0) PLT (test code = See_Comment HH [Automated 777-3) message] The system which generated this result transmit dain reference range : 150 - 328 10*3/ ?L. The reference range was not u sed to interpret th is result as normal/abnormal . MPV (test code = 9.9 fL 9.8-13 42324-0) NRBC/100 WBC (test See_Comment [Automat ed code = 7858654882) message] The system which generated this result transmit dain reference range : 0.0 - 10.0 /100 WBCs. The reference range was not used to interpret this result as normal/abnormal . NRBC x10^3 (test code <0.01 See_Comment [Auto mated = 8895460013) message] The system which generated this result transmit dain reference range : 10*3/?L. The reference range was not used to interpret this result as normal/abnormal . GRAN MAT (NEUT) % 81.7 % (test code = 770-8) IMM GRAN % (test code 1.10 % = 4287548740) LYMPH % (test code = 9.1 % 736-9) MONO % (test code = 7.3 % 5905-5) EOS % (test code = 0.5 % 713-8) BASO % (test code = 0.3 % 706-2) GRAN MAT x10^3(ANC) 10.91 10*3/uL 1.99-6.95 H (test code = 3594705763) IMM GRAN x10^3 (test 0.15 10*3/uL 0-0.06 H code = 8450710208) LYMPH x10^3 (test code 1.21 10*3/uL 1.09-3.23 = 731-0) MONO x10^3 (test code 0.97 10*3/uL 0.36-1.02 = 742-7) EOS x10^3 (test code = 0.07 10*3/uL 0.06-0.53 711-2) BASO x10^3 (test code 0.04 10*3/uL 0.01-0.09 = 704-7) Lab Interpretation Abnormal (test code = 21458-7) [facility] METABOLIC PANEL (NA, K, CL, CO2, GLUCOSE, BUN, CREATININE, CA)2020-04-17 10:49:00 Test Item Value Reference Range Interpretation Comments NA (test code = 134 mmol/L 135-145 L 8851936391) K (test code = 4.2 mmol/L 3.5-5 8158105373) CL (test code = 103 mmol/L 98-108 1978144243) CO2 TOTAL (test code = 26 mmol/L 23-31 4773768750) AGAP (test code = 2-16 4108298511) BUN (test code = 12 mg/dL 7-23 8308160810) GLUCOSE (test code = 107 mg/dL 70-110 9152771257) CREATININE (test code = 0.74 mg/dL 0.6-1.25 3045507797) CALCIUM (test code = 7.8 mg/dL 8.6-10.6 L 8856375536) eGFR Calculation mL/min/1.73m2 (Non-) (test code = 2135546098) eGFR Calculation mL/min/1.73m2 () (test code = 0450391044) GILBERTO (test code = GILBERTO) Association of [...] tests). Lab Interpretation Abnormal (test code = 18552-1) [facility]00 Test Item Value Reference Range Interpretation Comments MAGNESIUM (test code = 0636796207) 2.3 mg/dL 1.7-2.4 Lab Interpretation (test code = Normal 13678-6) [facility] Test Item Value Reference Range Interpretation Comments PHOSPHORUS (test code = 6156655839) 3.8 mg/dL 2.5-5 Lab Interpretation (test code = Normal 69667-4) [facility] [id number] 00:37:00 Test Item Value Reference Range Interpretation Comments LDH BF (test code = 3707 U/L 7843571708) UNSPUN BODY FLUID Light Yellow COLOR (test code = 5530634752) UNSPUN BODY FLUID Clear CLARITY (test code = 7613879332) SPUN BODY FLUID Light Yellow COLOR (test code = 2781256130) SPUN BODY FLUID Clear CLARITY (test code = 3358026675) Sediment (test code The sediment volume is 0.1 = 6900495480) mLs of the total fluid volume of 3mLs and its color is white. GILBERTO (test code = Test developed and GILBERTO) characteristics determined by [facility] Laboratory Services. [facility]ST 1 [id number] 00:22:53 1. ?Left lower lung zone 2 [...] fortechnique. Bones: No acute osseous abnormalityis seen. [facility], Radiant Results Inft User - 04/16/2020 [...] compared to 817 with a possible small pneumothorax.[facility] FL[facility] DIRECT [id number] 00:10:00 Test Item Value Reference Range Interpretation Comments BF COLOR Light Yellow (test code = 5364411387) BF WBC Count See_Comment [Automated (test code = message] The sy stem [id number]) which generated this result transmitted reference range : /?L. The refere nce range was not u sed to interpret th is result as normal/abnormal . BF RBC Count <3000 See_Comment [Automated (test code = message] The sy stem [id number]) which generated this result transmitted reference range : /?L. The refere nce range was not u sed to interpret th is result as normal/abnormal . GILBERTO (test The reference range code = GILBERTO) and other method performance specifications have not been established for this body fluid. ?The test results must be integrated into the clinical context for interpretation. [facility] MANUAL [id number] 00:10:00 Test Item Value Reference Range Interpretation Comments BF SEGS (test code = 5162870325) 78 % MACROPHAGE (test code = 5427159859) 22 % #CELS CNTD (test code = 5685043829) [facility] HospitalAmylase Body [id number] 00:03:00 Test Item Value Reference Range Interpretation Comments AMYLASE BF (test 313 U/L code = 7523036209) UNSPUN BODY FLUID Yellow COLOR (test code = 1804947542) UNSPUN BODY FLUID Clear CLARITY (test code = 0844652538) SPUN BODY FLUID Yellow COLOR (test code = 8758795369) SPUN BODY FLUID Clear CLARITY (test code = 2351030820) Sediment (test code The sediment volume is = 1353799999) <0.1 mLs of the total fluid volume of 1mL and its color is red. GILBERTO (test code = Test developed and GILBERTO) characteristics determined by [facility] Laboratory Services. [facility] HospitalGlucose Body [id number] 00:03:00 Test Item Value Reference Range Interpretation Comments GLUCOSE BF (test 57 mg/dL code = 0797193362) UNSPUN BODY FLUID Yellow COLOR (test code = 3115639964) UNSPUN BODY FLUID Clear CLARITY (test code = 5081139320) SPUN BODY FLUID Yellow COLOR (test code = 5208489013) SPUN BODY FLUID Clear CLARITY (test code = 9026488122) Sediment (test code The sediment volume is = 3822678098) <0.1 mLs of the total fluid volume of 1mL and its color is red. GILBERTO (test code = Test developed and GILBERTO) characteristics determined by [facility] Laboratory Services. [facility] HospitalTotal Protein Body [id number] 00:03:00 Test Item Value Reference Range Interpretation Comments T.PROT BF (test 3000.0 mg/dL code = 8715472212) UNSPUN BODY FLUID Yellow COLOR (test code = 7935829487) UNSPUN BODY FLUID Clear CLARITY (test code = 8096257474) SPUN BODY FLUID Yellow COLOR (test code = 6572025365) SPUN BODY FLUID Clear CLARITY (test code = 2834238252) Sediment (test code The sediment volume is = 4433634916) <0.1 mLs of the total fluid volume of 1mL and its color is red. GILBERTO (test code = Test developed and GILBERTO) characteristics determined by [facility] Laboratory Services. [facility] HospitalPH, Body [id number] 23:56:00 Test Item Value Reference Range Interpretation Comments PH BF (test code = 3605524550) UNSPUN BODY FLUID COLOR Light Yellow (test code = 1356960588) UNSPUN BODY FLUID Clear CLARITY (test code = 9725270334) SPUN BODY FLUID COLOR Light Yellow (test code = 8489493151) SPUN BODY FLUID CLARITY Clear (test code = 6677669392) Sediment (test code = The sediment volume is 2301878979) 0.1 mLs of the total fluid volume of 5.5mLs and its color is white/red. [facility] DRAINAGE BY CATHETER PERITONEAL OR [id number] 21:10:26 Successful placement of a 12 [place] drain in the left upper quadrantcollection. Successful placement of a 14 [place] drain in the midline air fluidcollection. Successful placement of a 10 [place] drain in the right lower quadrant fluidcollection. [...] those actually performingthe procedure. Please refer to [facility] regarding sedation time. RADIATION DOSE: 1957 mGy - cm. TECHNIQUE: The risks, benefits and alternatives were discussed and informed consentwas obtained. Prior to beginning the procedure, [place] Protocol was usedto confirm the patient's identity and planned procedure. Maximum sterilebarriers including cap, mask, hand hygiene, sterile gloves, sterile gown,large sterile drape and cutaneous antisepsis were used. The anteriorabdominal wall was sterilely prepped, and draped. The skinoverlying the left upper, right upper, andright lower quadrants wasinfiltrated with lidocaine 2%. The targeted collection in the left upper quadrant was then accessed with o17-roind quadrant needle using CT guidance. A 0.035 Amplatz wire wasadvanced through the coaxial needle. The tract was serially dilated to 12French. A pigtail 12 Slovenian catheter was placed in the left upper quadrantcollection. Approximately, 210 cc of purulent fluid was removed. The air-fluid collection in the mid abdomen was accessed through the rightupper quadrant. An 18 Slovenian pigtail catheter was placed in this collectionunder CT guidance in a similar fashion to thedrain and left upperquadrant. Approximately, 1250 cc of purulent material were removed. The fluid collection in the right lower quadrant was also accessed in asimilar fashion. A 10 Slovenian pigtail catheter was placed in this collectionunder [...] aspirated at the time of the procedure. [facility], Radiant Results Inft User - 04/16/2020 4:11 PM CDTEXAMINATION: PERCUTANEOUS ASPIRATIONHISTORY: 50-year-old male with postoperative abdominal fluid collections SEDATION: Moderate sedation was administered under the supervision of atrained nurse specialist who was independent from those actually performingthe procedure. Please refer to [facility] regarding sedation time.RADIATION DOSE: 1957 mGy - cm.TECHNIQUE: The risks, benefits and alternatives were d iscussed and informed consentwas obtained. Prior to beginning the procedure, [place] Protocol was usedto confirm the patient's identity [...] serially dilated to 12French. A pigtail 12 Slovenian catheter was placed in the left upper quadrantcollection. Approximately, 210 cc of purulent fluid was removed.The air-fluid collection in the mid abdomen was accessed through the rightupper quadrant. An 18 Slovenian pigtail catheter was placed in this collectionunder CT guidance in a similar fa shion to the drain and left upperquadrant. Approximately, 1250 cc of purulent material were removed.The fluid collection in the right lower quadrant was also accessed in asimilar fashion. A 10 Slovenian pigtail catheter was placed in this collectionunder [...] left upper quadrantcollection.Successful placement of a 14 Slovenian drain in the midline air fluidcollection.Successful placement of a 10 Slovenian drain in the right lower quadrant fluidcollection.Preliminary Report Dictated by Resident: Hayden Murphy the attending radiologist I was present in the room for the entirety ofthe procedure.I, Neris Grier MD., have reviewed this study and agree with the abovereport.[facility]OB[facility]/ANAEROBIC)2020-04-16 19:45:00 Test Item Value Reference Range Interpretation Comments BODY FLUID CULT 2+ Bacteroides fragillis (test code = 611-4) Gram stain (test Occasional (Rare) code = 664-3) Mononuclear cells [facility] / [id number] 16:38:00 Test Item Value Reference Range Interpretation Comments PROTIME PATIENT (test See_Comment H [Auto mated message] code = 5964-2) The system [employer] generated this result transmitted ref erence range: 10.1 - 1 2.6 Seconds. The reference range was not used to int erpret this result as normal/abnormal . INR (test code = 6301-6) Nor mal INR <1.1; Warfarin Therap eutic range 2.0 to 3. 0 or 2.5 to 3.5, dep ending upon the indica tions. Lab Interpretation (test Abnormal code = 07673-6) [facility] W [id number] 13:40:08Impression: 1. ?Interval placement of 4 percutaneous [...] degenerative changes and no suspicious focal lesions. [facility], Radiant Results Inft User - 04/16/2020 [...] and oral contrast seen up to the ostomy.[facility] METABOLIC PANEL (NA, K, CL, CO2, GLUCOSE, BUN, CREATININE, CA)2020-04-16 10:51:00 Test Item Value Reference Range Interpretation Comments NA (test code = 132 mmol/L 135-145 L 0362057757) K (test code = 4.1 mmol/L 3.5-5 3606293586) CL (test code = 103 mmol/L 98-108 0092472268) CO2 TOTAL (test code = 24 mmol/L 23-31 9863890640) AGAP (test code = 2-16 2841770910) BUN (test code = 13 mg/dL 7-23 1811021061) GLUCOSE (test code = 132 mg/dL 70-110 H 8506870247) CREATININE (test code = 0.77 mg/dL 0.6-1.25 0702187841) CALCIUM (test code = 7.4 mg/dL 8.6-10.6 L 7632787143) eGFR Calculation mL/min/1.73m2 (Non-) (test code = 4070903665) eGFR Calculation mL/min/1.73m2 () (test code = 8755083227) GILBERTO (test code = GILBERTO) Association of [...] tests). Lab Interpretation Abnormal (test code = 68858-6) [facility]2020-08-24 10:51:00 Test Item Value Reference Range Interpretation Comments MAGNESIUM (test code = 1600861291) 2.2 mg/dL 1.7-2.4 Lab Interpretation (test code = Normal 07503-8) [facility]2020-08-24 10:51:00 Test Item Value Reference Range Interpretation Comments PHOSPHORUS (test code = 3965645330) 3.1 mg/dL 2.5-5 Lab Interpretation (test code = Normal 29929-9) [facility] WITH [id number] 10:37:00 Test Item Value Reference Range Interpretation [...] RDW-SD (test code = 47.4 fL 38.5-51.6 11818-5) RDW-CV (test code = 14.7 % 12.1-15.4 788-0) PLT (test code = See_Comment H [Automated 777-3) message] The system which generated this result transmit dain reference range : 150 - 328 10*3/ ?L. The reference range was not u sed to interpret th is result as normal/abnormal . MPV (test code = 10.1 fL 9.8-13 26251-0) NRBC/100 WBC (test See_Comment [Automat ed code = 6781293113) message] The system which generated this result transmit dain reference range : 0.0 - 10.0 /100 WBCs. The reference range was not used to interpret this result as normal/abnormal . NRBC x10^3 (test code <0.01 See_Comment [Auto mated = 0321749017) message] The system which generated this result transmit dain reference range : 10*3/?L. The reference range was not used to interpret this result as normal/abnormal . GRAN MAT (NEUT) % 83.0 % (test code = 770-8) IMM GRAN % (test code 1.50 % = 5948034812) LYMPH % (test code = 7.6 % 736-9) MONO % (test code = 7.3 % 5905-5) EOS % (test code = 0.3 % 713-8) BASO % (test code = 0.3 % 706-2) GRAN MAT x10^3(ANC) 11.53 10*3/uL 1.99-6.95 H (test code = 2188580738) IMM GRAN x10^3 (test 0.21 10*3/uL 0-0.06 H code = 3973431159) LYMPH x10^3 (test code 1.05 10*3/uL 1.09-3.23 L = 731-0) MONO x10^3 (test code 1.01 10*3/uL 0.36-1.02 = 742-7) EOS x10^3 (test code = 0.04 10*3/uL 0.06-0.53 L 711-2) BASO x10^3 (test code 0.04 10*3/uL 0.01-0.09 = 704-7) Lab Interpretation Abnormal (test code = 26421-9) [facility] METABOLIC PANEL (NA, K, CL, CO2, GLUCOSE, BUN, CREATININE, CA)2020-04-15 11:01:00 Test Item Value Reference Range Interpretation Comments NA (test code = 132 mmol/L 135-145 L 4699350766) K (test code = 4.7 mmol/L 3.5-5 9984621287) CL (test code = 103 mmol/L 98-108 0576816681) CO2 TOTAL (test code = 22 mmol/L 23-31 L 8140637414) AGAP (test code = 2-16 3525061424) BUN (test code = 14 mg/dL 7-23 3400990350) GLUCOSE (test code = 114 mg/dL 70-110 H 3753742541) CREATININE (test code = 0.74 mg/dL 0.6-1.25 0003548608) CALCIUM (test code = 7.9 mg/dL 8.6-10.6 L 8115263285) eGFR Calculation mL/min/1.73m2 (Non-) (test code = 5826076200) eGFR Calculation mL/min/1.73m2 () (test code = 7069993242) GILBERTO (test code = GILBERTO) Association of [...] tests). Lab Interpretation Abnormal (test code = 56994-7) [facility]2020-08-23 11:01:00 Test Item Value Reference Range Interpretation Comments MAGNESIUM (test code = 7857227413) 2.1 mg/dL 1.7-2.4 Lab Interpretation (test code = Normal 79401-1) [facility]2020-08-23 11:01:00 Test Item Value Reference Range Interpretation Comments PHOSPHORUS (test code = 5976727664) 3.4 mg/dL 2.5-5 Lab Interpretation (test code = Normal 35321-3) [facility] WITH [id number] 10:46:00 Test Item Value Reference Range Interpretation [...] RDW-SD (test code = 47.7 fL 38.5-51.6 77129-2) RDW-CV (test code = 15.0 % 12.1-15.4 788-0) PLT (test code = See_Comment H [Automated 777-3) message] The system which generated this result transmit dain reference range : 150 - 328 10*3/ ?L. The reference range was not u sed to interpret th is result as normal/abnormal . MPV (test code = 10.4 fL 9.8-13 11497-9) NRBC/100 WBC (test See_Comment [Automat ed code = 8347470537) message] The system which generated this result transmit dain reference range : 0.0 - 10.0 /100 WBCs. The reference range was not used to interpret this result as normal/abnormal . NRBC x10^3 (test code <0.01 See_Comment [Auto mated = 7912769392) message] The system which generated this result transmit dain reference range : 10*3/?L. The reference range was not used to interpret this result as normal/abnormal . GRAN MAT (NEUT) % 85.0 % (test code = 770-8) IMM GRAN % (test code 1.10 % = 5912946483) LYMPH % (test code = 7.2 % 736-9) MONO % (test code = 6.4 % 5905-5) EOS % (test code = 0.1 % 713-8) BASO % (test code = 0.2 % 706-2) GRAN MAT x10^3(ANC) 14.87 10*3/uL 1.99-6.95 H (test code = 1341976640) IMM GRAN x10^3 (test 0.20 10*3/uL 0-0.06 H code = 6993069417) LYMPH x10^3 (test code 1.25 10*3/uL 1.09-3.23 = 731-0) MONO x10^3 (test code 1.11 10*3/uL 0.36-1.02 H = 742-7) EOS x10^3 (test code = <0.03 0.06-0.53 L 711-2) BASO x10^3 (test code 0.03 10*3/uL 0.01-0.09 = 704-7) Lab Interpretation Abnormal (test code = 67653-7) [facility] METABOLIC PANEL (NA, K, CL, CO2, GLUCOSE, BUN, CREATININE, CA)2020-04-14 12:15:00 Test Item Value Reference Range Interpretation Comments NA (test code = 134 mmol/L 135-145 L 4326669483) K (test code = 4.9 mmol/L 3.5-5 2743816038) CL (test code = 105 mmol/L 98-108 7947083570) CO2 TOTAL (test code = 23 mmol/L 23-31 8612083942) AGAP (test code = 2-16 3452478119) BUN (test code = 16 mg/dL 7-23 0880382680) GLUCOSE (test code = 102 mg/dL 70-110 9043452338) CREATININE (test code = 0.82 mg/dL 0.6-1.25 1863697865) CALCIUM (test code = 7.9 mg/dL 8.6-10.6 L 5455528275) eGFR Calculation mL/min/1.73m2 (Non-) (test code = 0882701759) eGFR Calculation mL/min/1.73m2 () (test code = 5665315585) GILBERTO (test code = GILBERTO) Association of [...] tests). Lab Interpretation Abnormal (test code = 38439-5) [facility]2020-08-22 12:15:00 Test Item Value Reference Range Interpretation Comments MAGNESIUM (test code = 5682354730) 2.1 mg/dL 1.7-2.4 Lab Interpretation (test code = Normal 54355-9) [facility]2020-08-22 12:15:00 Test Item Value Reference Range Interpretation Comments PHOSPHORUS (test code = 9790839461) 4.2 mg/dL 2.5-5 Lab Interpretation (test code = Normal 43226-2) [facility] WITH [id number] 11:49:00 Test Item Value Reference Range Interpretation [...] RDW-SD (test code = 48.1 fL 38.5-51.6 38474-6) RDW-CV (test code = 15.1 % 12.1-15.4 788-0) PLT (test code = See_Comment H [Automated 777-3) message] The system which generated this result transmit dain reference range : 150 - 328 10*3/ ?L. The reference range was not u sed to interpret th is result as normal/abnormal . MPV (test code = 10.7 fL 9.8-13 21728-5) NRBC/100 WBC (test See_Comment [Automat ed code = 8223916946) message] The system which generated this result transmit dain reference range : 0.0 - 10.0 /100 WBCs. The reference range was not used to interpret this result as normal/abnormal . NRBC x10^3 (test code <0.01 See_Comment [Auto mated = 0530872800) message] The system which generated this result transmit dain reference range : 10*3/?L. The reference range was not used to interpret this result as normal/abnormal . GRAN MAT (NEUT) % 84.4 % (test code = 770-8) IMM GRAN % (test code 1.10 % = 6918385103) LYMPH % (test code = 7.4 % 736-9) MONO % (test code = 6.8 % 5905-5) EOS % (test code = 0.1 % 713-8) BASO % (test code = 0.2 % 706-2) GRAN MAT x10^3(ANC) 13.45 10*3/uL 1.99-6.95 H (test code = 6583456937) IMM GRAN x10^3 (test 0.18 10*3/uL 0-0.06 H code = 0915724715) LYMPH x10^3 (test code 1.18 10*3/uL 1.09-3.23 = 731-0) MONO x10^3 (test code 1.09 10*3/uL 0.36-1.02 H = 742-7) EOS x10^3 (test code = <0.03 0.06-0.53 L 711-2) BASO x10^3 (test code 0.03 10*3/uL 0.01-0.09 = 704-7) Lab Interpretation Abnormal (test code = 93924-6) [facility] TOTAL BODY [id number] 01:27:00 Test Item Value Reference Range Interpretation Comments LDH BF (test code = >6450 U/L 6423288481) UNSPUN BODY FLUID Yellow COLOR (test code = 7994344012) UNSPUN BODY FLUID Turbid CLARITY (test code = 5325647247) SPUN BODY FLUID Yellow COLOR (test code = 6269647685) SPUN BODY FLUID Clear CLARITY (test code = 3039439848) Sediment (test code The sediment volume is 0.1 = 3376989806) mLs of the total fluid volume of 5mLs and its color is Red/White. GILBERTO (test code = Test developed and GILBERTO) characteristics determined by [facility] Laboratory Services. [facility] METABOLIC PANEL (NA, K, CL, CO2, GLUCOSE, BUN, CREATININE, CA)2020-04-14 00:15:00 Test Item Value Reference Range Interpretation Comments NA (test code = 132 mmol/L 135-145 L 3273950752) K (test code = 5.3 mmol/L 3.5-5 H 0138978221) CL (test code = 105 mmol/L 98-108 0484446065) CO2 TOTAL (test code = 20 mmol/L 23-31 L 5261484665) AGAP (test code = 2-16 1259683842) BUN (test code = 14 mg/dL 7-23 3515190926) GLUCOSE (test code = 280 mg/dL 70-110 H 2943677293) CREATININE (test code = 0.75 mg/dL 0.6-1.25 1971014703) CALCIUM (test code = 7.4 mg/dL 8.6-10.6 L 0775070567) eGFR Calculation mL/min/1.73m2 (Non-) (test code = 6493428051) eGFR Calculation mL/min/1.73m2 () (test code = 8370745365) GILBRETO (test code = GILBERTO) Association of Glomerular [...] tests). Lab Interpretation Abnormal (test code = 72952-2) [facility] WITHOUT [id number] 00:01:00 Test Item Value Reference Range Interpretation Comments WBC (test code = 6690-2) See_Comment H [A utomated message] The system [employer] generated this result transmit dain reference range : 4.20 - 10.70 10*3/?L. The reference range was not used to interpret this result as normal/abnormal . RBC (test code = 789-8) See_Comment L [Au tomated message] The system [employer] generated this result transmit dain reference range [...] See_Comment H [Au tomated message] The system [employer] generated this result transmit dain reference range : 150 - 328 10*3/?L. The reference range was not used to interpret this result as normal/abnormal . MPV (test code = 10.2 fL 9.8-13 97463-6) RDW-CV (test code = 15.3 % 12.1-15.4 788-0) RDW-SD (test code = 49.1 fL 38.5-51.6 60288-6) NRBC x10^3 (test code = <0.01 See_Comment [Au tomated message] 1975657830) The system [employer] generated this result transmit dain reference range : 10*3/?L. The reference range was not used to interpret this result as normal/abnormal . NRBC/100 WBC (test code See_Comment [Au tomated message] = 8267627019) The system [employer] generated this result transmit dain reference range : 0.0 - 10.0 /100 WBC s. The reference r meredith was not used to interpret this result as normal/abnormal . IPF % (test code = 6287194530) Lab Interpretation (test Abnormal code = 47672-2) [facility] DIRECT [id number] 23:40:00 Test Item Value Reference Range Interpretation Comments BF COLOR Yellow (test code = 1736600531) BF WBC Count See_Comment [Automated (test code = message] The sy stem 3556512563) which generated this result transmitted reference range : /?L. The refere nce range was not u sed to interpret th is result as normal/abnormal . BF RBC Count <3000 See_Comment [Automated (test code = message] The sy stem 4948893995) which generated this result transmitted reference range : /?L. The refere nce range was not u sed to interpret th is result as normal/abnormal . GILBERTO (test The reference range code = GILBERTO) and other method performance specifications have not been established for this body fluid. ?The test results must be integrated into the clinical context for interpretation. [facility] MANUAL [id number] 23:40:00 Test Item Value Reference Range Interpretation Comments BF SEGS (test code 99 % = 1140651299) BF LYMPHS (test 1 % code = 2529166130) #CELS CNTD (test code = 6485556391) GILBERTO (test code = Possible intracellular GILBERTO) bacteria. [facility] Hospital[facility]SE BODY [id number] 23:17:00 Test Item Value Reference Range Interpretation Comments GLUCOSE BF (test <20 mg/dL code = 7508078194) UNSPUN BODY FLUID Yellow COLOR (test code = 6962315140) UNSPUN BODY FLUID Turbid CLARITY (test code = 9754283696) SPUN BODY FLUID Yellow COLOR (test code = 4790774329) SPUN BODY FLUID Clear CLARITY (test code = 4218724352) Sediment (test code The sediment volume is 0.1 = 8465794384) mLs of the total fluid volume of 5mLs and its color is Red/White. GILBERTO (test code = Test developed and GILBERTO) characteristics determined by [facility] Laboratory Services. [facility].PROTEIN BODY [id number] 22:52:00 Test Item Value Reference Range Interpretation Comments T.PROT BF (test 3000.0 mg/dL code = 8838951423) UNSPUN BODY FLUID Yellow COLOR (test code = 6874202258) UNSPUN BODY FLUID Turbid CLARITY (test code = 9605252249) SPUN BODY FLUID Yellow COLOR (test code = 2763153475) SPUN BODY FLUID Clear CLARITY (test code = 4934964988) Sediment (test code The sediment volume is 0.1 = 2520701458) mLs of the total fluid volume of 5mLs and its color is Red/White. GILBERTO (test code = Test developed and GILBERTO) characteristics determined by [facility] Laboratory Services. [facility] HospitalURINE [id number] 19:44:00 Test Item Value Reference Range Interpretation Comments URINE CULTURE (test No aerobic growth (< code = 630-4) 1000 CFU/mL) [facility] NEGATIVE BLOOD PATHOGENS DNA [id number] 13:23:00 Test Item Value Reference Range Interpretation Comments Enterobacter species Positive Negative A (test code = 99329-8) GILBERTO (test code = GILBERTO) See blood culture result for additional information. ?Testing included eight identification and six resistance marker targets. Lab Interpretation Abnormal (test code = 27541-5) [facility] WITH [id number] 12:43:00 Test Item Value Reference Range Interpretation [...] RDW-SD (test code = 49.8 fL 38.5-51.6 52282-6) RDW-CV (test code = 15.3 % 12.1-15.4 788-0) PLT (test code = See_Comment H [Automated 777-3) message] The system which generated this result transmit dain reference range : 150 - 328 10*3/ ?L. The reference range was not u sed to interpret th is result as normal/abnormal . MPV (test code = 10.7 fL 9.8-13 03020-6) NRBC/100 WBC (test See_Comment [Automat ed code = 8934394549) message] The system which generated this result transmit dain reference range : 0.0 - 10.0 /100 WBCs. The reference range was not used to interpret this result as normal/abnormal . NRBC x10^3 (test code <0.01 See_Comment [Auto mated = 7087840856) message] The system which generated this result transmit dain reference range : 10*3/?L. The reference range was not used to interpret this result as normal/abnormal . GRAN MAT (NEUT) % 81.3 % (test code = 770-8) IMM GRAN % (test code 1.40 % = 0153679773) LYMPH % (test code = 8.0 % 736-9) MONO % (test code = 8.9 % 5905-5) EOS % (test code = 0.2 % 713-8) BASO % (test code = 0.2 % 706-2) GRAN MAT x10^3(ANC) 10.74 10*3/uL 1.99-6.95 H (test code = 6362004249) IMM GRAN x10^3 (test 0.18 10*3/uL 0-0.06 H code = 4292287397) LYMPH x10^3 (test code 1.06 10*3/uL 1.09-3.23 L = 731-0) MONO x10^3 (test code 1.17 10*3/uL 0.36-1.02 H = 742-7) EOS x10^3 (test code = <0.03 0.06-0.53 L 711-2) BASO x10^3 (test code <0.03 0.01-0.09 = 704-7) Lab Interpretation Abnormal (test code = 76326-4) [facility] METABOLIC PANEL (NA, K, CL, CO2, GLUCOSE, BUN, CREATININE, CA)2020-04-13 11:57:00 Test Item Value Reference Range Interpretation Comments NA (test code = 134 mmol/L 135-145 L 3890973608) K (test code = 4.6 mmol/L 3.5-5 4742176427) CL (test code = 106 mmol/L 98-108 0624433215) CO2 TOTAL (test code = 23 mmol/L 23-31 5048645818) AGAP (test code = 2-16 5311838416) BUN (test code = 14 mg/dL 7-23 3778323581) GLUCOSE (test code = 106 mg/dL 70-110 7662433230) CREATININE (test code = 0.84 mg/dL 0.6-1.25 1234813950) CALCIUM (test code = 7.7 mg/dL 8.6-10.6 L 0382159552) eGFR Calculation mL/min/1.73m2 (Non-) (test code = 6596422348) eGFR Calculation mL/min/1.73m2 () (test code = 5500370604) GILBERTO (test code = GILBERTO) Association of [...] tests). Lab Interpretation Abnormal (test code = 31168-5) [facility]2020-08-21 11:57:00 Test Item Value Reference Range Interpretation Comments MAGNESIUM (test code = 9811104086) 2.1 mg/dL 1.7-2.4 Lab Interpretation (test code = Normal 46112-3) [facility]2020-08-21 11:57:00 Test Item Value Reference Range Interpretation Comments PHOSPHORUS (test code = 5220043841) 3.4 mg/dL 2.5-5 Lab Interpretation (test code = Normal 15452-0) [facility] P[facility] W [id number] 00:22:08 1. ?Multiple intraperitoneal collections as detailed [...] this study and agree with the abovereport. [facility]2020-08-20 23:20:00 Test Item Value Reference Range Interpretation Comments APPEARANCE (test code = Clear Clear 0701593469) COLOR (test code = Yellow Yellow 6693085448) PH (test code = 4.8-8.0 3541269030) SP GRAVITY (test code = 1.003-1.030 0826698812) GLU U QUAL (test code = Normal Normal 6223965332) BLOOD (test code = Negative Negative 5770875243) KETONES (test code = Negative Negative 4933790293) PROTEIN (test code = 30 mg/dL Negative A 2887-8) UROBILIN (test code = Normal Normal 3752218472) BILIRUBIN (test code = Negative Negative 0550674686) NITRITE (test code = Negative Negative 8015583724) LEUK ROGER (test code = Negative Negative 3277287815) RBC/HPF (test code = See_Comment [Autom ated message] 8754376734) The system [employer] generated this result transmitted ref erence range: 0 - 3 HP F. The reference range was not used to int erpret this result as normal/abnormal . WBC/HPF (test code = <1 See_Comment [Autom ated message] 8226619350) The system [employer] generated this result transmitted ref erence range: 0 - 5 HP F. The reference range was not used to int erpret this result as normal/abnormal . BACTERIA (test code = Negative Negative 5230462410) MUCOUS (test code = Slight Negative LPF A 7462480486) SQ EPITH (test code = See_Comment [Auto mated message] 3156664496) The system [employer] generated this result transmitted ref erence range: <=2 HPF. The reference range was not used to int erpret this result as normal/abnormal . Lab Interpretation (test Abnormal code = 07413-4) [facility] WITH [id number] 12:08:00 Test Item Value Reference Range Interpretation [...] RDW-SD (test code = 48.9 fL 38.5-51.6 47465-1) RDW-CV (test code = 15.4 % 12.1-15.4 788-0) PLT (test code = See_Comment [Automated 777-3) message] The sy stem which generated this result transmitted reference range : 150 - 328 10*3/ ?L. The reference r meredith was not used to interpret this result as normal/abnormal . MPV (test code = 11.2 fL 9.8-13 34723-9) NRBC/100 WBC (test See_Comment [Automat ed code = 2936513819) message] The system which generated this result transmitted reference range : 0.0 - 10.0 /100 WBCs. The refer ence range was not u sed to interpret th is result as normal/abnormal . NRBC x10^3 (test code <0.01 See_Comment [Auto mated = 1298087750) message] The s ystem which generated this result transmitted reference range : 10*3/?L. The reference range was not used to interpret this result as normal/abnormal . GRAN MAT (NEUT) % 79.9 % (test code = 770-8) IMM GRAN % (test code 1.30 % = 1673699981) LYMPH % (test code = 7.4 % 736-9) MONO % (test code = 11.0 % 5905-5) EOS % (test code = 0.2 % 713-8) BASO % (test code = 0.2 % 706-2) GRAN MAT x10^3(ANC) 9.56 10*3/uL 1.99-6.95 H (test code = 4580000448) IMM GRAN x10^3 (test 0.15 10*3/uL 0-0.06 H code = 8773695677) LYMPH x10^3 (test code 0.89 10*3/uL 1.09-3.23 L = 731-0) MONO x10^3 (test code 1.32 10*3/uL 0.36-1.02 H = 742-7) EOS x10^3 (test code = <0.03 0.06-0.53 L 711-2) BASO x10^3 (test code <0.03 0.01-0.09 = 704-7) Lab Interpretation Abnormal (test code = 43768-3) [facility] (NA, K, CL, CO2, GLUCOSE, BUN, CREATININE, CA)2020-04-12 10:43:00 Test Item Value Reference Range Interpretation Comments NA (test code = 133 mmol/L 135-145 L 8016496158) K (test code = 4.3 mmol/L 3.5-5 9524083992) CL (test code = 104 mmol/L 98-108 5452263676) CO2 TOTAL (test code = 22 mmol/L 23-31 L 2429785454) AGAP (test code = 2-16 1004286109) BUN (test code = 20 mg/dL 7-23 1973787883) GLUCOSE (test code = 108 mg/dL 70-110 7426373238) CREATININE (test code = 0.77 mg/dL 0.6-1.25 3990304611) CALCIUM (test code = 8.1 mg/dL 8.6-10.6 L 9402333460) eGFR Calculation mL/min/1.73m2 (Non-) (test code = 1089004723) eGFR Calculation mL/min/1.73m2 () (test code = 5806880763) GILBERTO (test code = GILBERTO) Association of [...] tests). Lab Interpretation Abnormal (test code = 03975-7) [facility] 10:43:00 Test Item Value Reference Range Interpretation Comments MAGNESIUM (test code = 2352286636) 2.0 mg/dL 1.7-2.4 Lab Interpretation (test code = Normal 23011-8) [facility] 10:43:00 Test Item Value Reference Range Interpretation Comments PHOSPHORUS (test code = 3209355739) 4.3 mg/dL 2.5-5 Lab Interpretation (test code = Normal 35331-5) [facility] [id number] 04:01:00 Test Item Value Reference Range Interpretation Comments Blood Culture-Aerobic No organisms No growth Previo us (test code = 35376-5) isolated prelim inary verified result was Culture [...] Culture-Anaerobic isolated preliminar y (test code = 52745-5) verifi ed result was Culture In Progress [...] CDT Lab Interpretation Normal (test code = 00923-2) [facility] [id number] 04:01:00 Test Item Value Reference Range Interpretation Comments Blood Culture-Aerobic No organisms No growth Previo us (test code = 75473-3) isolated prelim inary verified result was Culture [...] Culture-Anaerobic isolated preliminar y (test code = 82019-8) verifi ed result was Culture In Progress [...] CDT Lab Interpretation Normal (test code = 65993-0) [facility] (NA, K, CL, CO2, GLUCOSE, BUN, CREATININE, CA)2020-04-11 10:13:00 Test Item Value Reference Range Interpretation Comments NA (test code = 138 mmol/L 135-145 5943200521) K (test code = 3.9 mmol/L 3.5-5 9252894676) CL (test code = 106 mmol/L 98-108 1832309643) CO2 TOTAL (test code = 27 mmol/L 23-31 8272830018) AGAP (test code = 2-16 3730328194) BUN (test code = 24 mg/dL 7-23 H 0743306166) GLUCOSE (test code = 97 mg/dL 70-110 1169580221) CREATININE (test code = 0.63 mg/dL 0.6-1.25 7299719241) CALCIUM (test code = 8.1 mg/dL 8.6-10.6 L 3417875948) eGFR Calculation mL/min/1.73m2 (Non-) (test code = 0461091250) eGFR Calculation mL/min/1.73m2 () (test code = 9542565439) GILBERTO (test code = GILBERTO) Association of [...] tests). Lab Interpretation Abnormal (test code = 75177-0) [facility]19 10:13:00 Test Item Value Reference Range Interpretation Comments MAGNESIUM (test code = 6929041440) 1.8 mg/dL 1.7-2.4 Lab Interpretation (test code = Normal 77806-9) [facility] 10:13:00 Test Item Value Reference Range Interpretation Comments PHOSPHORUS (test code = 8010951692) 3.6 mg/dL 2.5-5 Lab Interpretation (test code = Normal 38743-0) [facility] [id number] 10:06:00 Test Item Value Reference Range Interpretation [...] RDW-SD (test code = 48.9 fL 38.5-51.6 21404-8) RDW-CV (test code = 15.3 % 12.1-15.4 788-0) PLT (test code = See_Comment [Automated 777-3) message] The sy stem which generated this result transmitted reference range : 150 - 328 10*3/ ?L. The reference r meredith was not used to interpret this result as normal/abnormal . MPV (test code = 11.7 fL 9.8-13 32979-1) NRBC/100 WBC (test See_Comment [Automat ed code = 5191698541) message] The system which generated this result transmitted reference range : 0.0 - 10.0 /100 WBCs. The refer ence range was not u sed to interpret th is result as normal/abnormal . NRBC x10^3 (test code <0.01 See_Comment [Auto mated = 8856929769) message] The s ystem which generated this result transmitted reference range : 10*3/?L. The reference range was not used to interpret this result as normal/abnormal . GRAN MAT (NEUT) % 75.6 % (test code = 770-8) IMM GRAN % (test code 1.10 % = 4912995556) LYMPH % (test code = 10.5 % 736-9) MONO % (test code = 11.0 % 5905-5) EOS % (test code = 1.5 % 713-8) BASO % (test code = 0.3 % 706-2) GRAN MAT x10^3(ANC) 5.56 10*3/uL 1.99-6.95 (test code = 5126136901) IMM GRAN x10^3 (test 0.08 10*3/uL 0-0.06 H code = 5207347560) LYMPH x10^3 (test code 0.77 10*3/uL 1.09-3.23 L = 731-0) MONO x10^3 (test code 0.81 10*3/uL 0.36-1.02 = 742-7) EOS x10^3 (test code = 0.11 10*3/uL 0.06-0.53 711-2) BASO x10^3 (test code <0.03 0.01-0.09 = 704-7) TOXIC CHANGES (test Present A code = 803-7) Lab Interpretation Abnormal (test code = 37682-2) [facility] [id number] 22:00:00 Test Item Value Reference Range Interpretation Comments Case Report (test code Surgical Pathology ? ? = [id number]) ?Case: [id number] ? Authorizing Provider: ?Juventino Mccabe MD ? Collected: ? 04/06/2020 1012 ?Ordering Location: ? ? [facility] OR ? Received: ?04/06/2020 1146 ? Department ? Pathologist: ? Shaneka Douglas MD ? Specimen: ? ?SOFT TISSUE, OTHER, ileo rectal anastamosis ? Final Diagnosis (test s7vtjTMdEWCtu8gfOMIduP code = 0470417452) FuZzEwMzNcZnRuYmpcdWMx XXpazkVfQYalp1UwF1YoXg AwMFxhbnNpXGRlZmxhbmcx AQWaXSD9rtWsWMMtGKayFW SqSRwbUk7lxSLevHbnWgGl XWZvn4ghxvUEcddafGf4q9 mmTJUcWzD8nYWwUKlwK0qg vwBpzRCaFQBdEPu0mY81GE LnvZ5pgSWeNExvfvLjFkX9 DAelOFSrCqR1UMVfuYClZI CcY1zyIHTsETgpNZDqQFzw lQVgSLJ4vSpww5Y6nLXziO WwlZamKhCgAzWcKDFXj6Uy BXl1rBfsR4SqVWXfTcD3qF QgUGFyYWdyYXBoIEZvbnQ7 vP17TNtubhQ8vFLvk0Vzc2 6be862uA7wsRAoMCB4ZKDj PCJlhTSgLFPzJJE8WAItkL AiF2jnCFyqDG8bcdwcLCU9 MFxtYXJndDcyMFxtYXJnYj DfsPFtBOFbdGetAAenx697 HPA7VuTyPH2vC2Cqn2U1iI 9maXRcZGVmdGFiNzIwXGZv kv5wjYCnDNoej2AkHAF0am A4uLSqmLMaOUMuUI35Wawj d3XuBrcpGOK5AVLyiwJue7 Mom6ebIhLjneXqE2lmW1Em ZHJoZWFkXHBnYnJkcmZvb3 Zar8DmeCJtuJw0o7afTKPl DRDmlEmde5ndBEA8WHBmA3 Q8lDGyl6xwNCkgJFGrmOP3 lcUjJILjjYQaV3GcuA8aMB trOZ3sptu8g6tmEpQzFW7u tzzcb3xjTBqiWVRtEFZ2Ys FcYIMib9GhfjjwNhTku0Nq nUUaGBzsC68gh337MSUdwi XkK0qyzVEdxfzzaZFizvzo HBtzveY0FFCmSWEvTOchPN YxXGZzMjBcbGFuZzEwMzNc aGljaFxmMVxkYmNoXGYxXG miD2bvWbLoVcSjBSbyOJAr EJ2xH84MY63lCOdRKC9hBe IHIUSKZOPSQCQAS02ID5vJ WKTWNCBzXNIKR86HWoWUII GRBTREE0JXK256HEZarwMv DDRbBY5iGoMSBAAFLZRRHM RHSYZNKYQTDXEMCSCpQ3cF BIIPIaNBY93PXtJSAOcFCu cBWJ1TVVmLHztgTNhMGFGV AXpWYlcmB6TYD9MMEVjNQB FORFxwYXIgICAgICAgICBQ GROOCD8INLEIU5agJWQoET UyCGPfTWDTW5RKORaVXaLY BDVEAP4IUUHGFBUVOTTFHO VccGFyXHBhclxwbGFpblxm MVxmczIyXGxhbmcxMDMzXG hxB5yvSqYaGYLsfUrpAMju i6NaBOOrUGJwXjkqunFaWW VtA7tcmKvtCBdnMYQ6TA8i VP6GO2dGEMA6MrQ6ZbDsWj KiKHK3ErBeXQ3ftToarA5a ByWgCkUwAEoqKB8fPIMhO6 hwyOWkOGIzNQSdD3jcUoNd oA7qoZvjLMkyxaZuXFMdqP LfAJMyhn93PBV1YxQck7I6 ZZRiWvBbQLOvNR3hzInsQF NfRA9lSMObG2aksX8uvup8 IlJcXCJuYbB3KNOulnY5Qf g6MVGkIXwfb1uxy4WjX9Tv rFZwuTh2u0alUKCdCbJ7oI RdMThoL9jgxeMajHZmBRSh UBb6cBqvWrCwNAJmn0zamx BcZmNoYXJzZXQwIENhbGli vcm3wC49RWPanG9idEKiFN cnwkIqLpR6HUtzFVGoSpG4 ZQKqpOJrKDWeO2qfJIAaMP lqGXTwUSpcgTSpIDA8kSpx g6Q1cAMjpNOwiJmgWuQnJq TjFNAAr7XpTDy4dItfS0Xy UPSmFbE8pUKpPOCpKQemIL HeRBGvzcT5aM63WEtuqpZ7 mIKds6Znv14hu039wE8izJ MpTCC2OZKpOMWfcNGgANRx NBN9AGUkqXJxV6oxRIZzJF 4fwhogWWohBVmbECUxrCR4 MPCjaLVoS4XcQDWsZQzfOV Awxjh4QcYzHt3xbOSxcNvr WYkht2tcr0nbxROfAsa0SG JyDjWeWzpeBCllf8Tbg1yy DRQrcr4iIWJ4aBXdiVklj5 P1nUHcXXJbbNEggvKnNAKh KtM2QGrkCX7fhc27CHBhVB K0tp5ivQLomQajlwOobWPb YTcuP3GwARKsr575RFHtG6 JqMNTer1Z2eoLlXnRsPYHv iZO6gyP2CZSmQNa7jJRvun L8bsFbaGIuF3fmmN5xGPBm OT8sftufz0puPWtsSKatES EeuAW2rqH8SOCvpXRbB5Ug qQ6kAZTuWFkwKQKuglg7Ed VgMu1duPWhuAioBNgwXotf YWdlXHBnbmNvbnRccGduZG VjXHBsYWluXHBsYWluXGYw UBErVpHftTlwwEhptS2zMi UtYbDgELpcFS0eZWSbQ4xs qEYzSHGvQOSxI5udFjQnvR 9jaFxmMVxjZjJcZnMyMFxw YXIgSSBoYXZlIHBlcnNvbm OtiTaznoB3xRU8FPVdFUnj EDWjVMNbxYNnze3qeImbDT XhAG4qPJSwooWnORutpCqx PGpdODU5AKWhhDYgkERinC FkZSBieSByZXNpZGVudHMs RPSvhNfrv4Zop2UvxSM8pJ 4rv3dbi5ZtKZEenWQ6NY71 pmY0nU0iTQGzGH1aQNKeOH 0hcDDhaNUgZHThu19gfHhg cyByZXBvcnQuXHBsYWluXG YyXGZzMjhcbGFuZzEwMzNc aGljaFxmMlxkYmNoXGYyXG nuQ7hvYgRhZuBbPKylVTE6 fQ== Clinical Information Abdominal distention (test code = [R14.0] 5003471663) Gross Description (test r5aexLDlPYXacTWqQpNrFI code = 7236520810) YcHSQbq0ekFBIisNGmHlUh MzNcZnRuYmpcdWMxXGRlZm Lwi2stp067nTTur6mbTIPx WzM8yLLaYCApdSTmD792SS EbIUeoh1jgq5LyHIKgjJLd z7E6CQQKuzieeXv7eEdiV2 7qx2K8EymsB0ejCQPrVMjn VGIsQXwdhSHhEUJ6VSQnEV P7ZJuqpiEvsmD3WBdniHJb XtY0XKr5p6rohXyuDLDlCC A0c1glVDpnqgJkOJ8efn5o uEp0u4mansPxMOGpABXgfP LEJIWyB7QuxLvmNb9fkDr2 bIyvChglXZX3Ntk7GS8hco 57aho4zNmfBJLkzpsvBoB9 DSrjKXKpnrhwUEz7XNtuFT RfjKLpOKCatMTcJ3TwKDmc RA5bfyq5UyXnTN9evojrMU obYVMxIJN9GzHlUQFkt3Hg rlmyUpFrwa7njw90NVC6s5 BgmHxdJZY7VRM9JaInGw7i dMFjHFNkLT6hQwHevZGbKN Ledd07sIuwQXifvxBsbZ9f ZwClXHSisOPbOKRrHN1liA SuZSAbeY1kzljvFPSaFfNa ywfnJTDksXveayGkVl2xhX hwNKL2FKpnK9ddlS1yIoF0 HQlpJ2ffxS2bPLh0VRxyoJ V6WHLwpD3rDW8jnpcdf1ce YGP0CTsiMURxvnZ1tlEhXV RddNAwW3HsoD88ZyFgdKTm V7DlcA4kIVzoOUIpdkh4Ca XiWd7kvRQzjIO9JAckZulm YWdlXHBnbmNvbnRccGduZG VjXHBsYWluXHBsYWluXGYw ZPUzNdThnKtxlDqjiC3iTp BcZnMyMFxwbGFpblxmMFxm czIwIFNwZWNpbWVuIEEgcm PkWEj6GGYmXuLdv2caaHIk CAicNLR7oNWfROBiTZYqZL OrBD08P0TczvTgRFrsCVks trNlKbDaKFCnv11ueTP5sA PwpOOwREehYNPaJQZgZ7Wy sRIfojOspJ0us7DqycTaIG 5kSANyjeYhw8ToUK7eDJEv o7EknDVdsMNvSHJgw3CgjX aimeTfFeGdcI8wXSQskdTn c6oeiAHpRI51USYdKBwpGW zjawu0mRGmelEsxhLwP4ya VlLjiy7nUDDaJSgcpVFtte ccRZttbdZwLKL8GrPwUMer SKEwuOueoP0jAyQkTqPiQV V6QvWsX48vTKvayHR4EZEk XTNjmvKix8TmhkPpg4m1tA RzcEDcSQCnC2UojPXueeZd nQ3ls7Ggge7jUJFTzTSah6 Hfh6SrnGCnCWMew1GmyKnd ycUtEH8pEXrrEQ1yLMDdRG rhnTOtxh12RWOxHHKczNkd JYBeAFT7y42ce1zzFVZicW SfZA3wFJX0fSKfhqLgcVZ0 uBNxRaQiIWwmuEQ3OIJfXX mzLYTOtCWrxDWfGh3pLUGc n40ehIKvqK2jGXMjRCHyJc QgX55kQiZdwVN2hEXboHti PNqqaMRaT1drRNUrRJIwRe BiGmYifNZ3jROjjfQjkGYr TJ6oxeedzz6cYJocINZ1hx nbM9RaNP3obtkldtLwSQLu WU7aCK7nQLQbbaFjqOcoGE FnJJFerVHxMSzlJOcdL4jc TVColmE9HEEssK6pNIKidA UcPj1rOWHuh87ef4o9WZY0 xRDdgE6olHvjUDIeUAK8a5 7xy7wtTTM5VJMbIIMlrD3z KmPyKeCxWIfsOBHpXN3oKJ RtUDBnlIRkw4ZubPTnrI5p JCKnqxEpzgDgFNKlaAY4t3 StJTXjiGYpu5QcGMD5nSAp JQQfgrXpFMWtVJKfPT6zzB AtLNDvuBPid0QzgMB5yAUc ZGStR5Pbq05qLVGnDLXcsC AfnEY2BKDsEWExIDDxyLue mK5qDyJdMkFiRLj2KYKfHF UhGgd7GPPaCKbwUFKvSDPg MjAgQTQuXHBhclxwYXIgU2 YixKipunMzc1WfCxtkJGKo NDS9BRGLNBG0BEpks7UjB4 krKPwdeUHtE3zdWJScYOHr TCOfkrQguEn7SAkxWUNnBZ Z5GKPVvXGikYQpbOPrqTBw nXHqGUPtoB2pITHhkKAlu7 UjrOA3xFCqBFOtzbTWBflr JPFzecDzvdO1iG8xYPMxjH McaMLrFWT3PbJcHC0qtwRa yVVuQANnOMM4eD7kYQ1vHZ IzCGbqKHYzi3BvELOqVLJz BTEuonCfeJz5YIjzFNOdnB WxXBKdnjIjhHkkxI6sGgWw ZnMyMFxwbGFpblxmMVxmcz HzCHWzmIpsVVAerLMoHF1F VWrJMEWlb1mxX2jfdOJXk7 Gmr3AbyhNuVMLqVPirKPOo XGZzMjBccGFyXHFsXHBsYW pzWMMpBVRgWgGstBmhnL8g ZjBcZnMyMFxwYXJccGFyfQ == Embedded Images (test code = 1561182839) [facility] WITH [id number] 11:29:00 Test Item Value Reference Range Interpretation [...] RDW-SD (test code = 48.8 fL 38.5-51.6 46630-2) RDW-CV (test code = 15.2 % 12.1-15.4 788-0) PLT (test code = See_Comment L [Automated 777-3) message] The sy stem which generated this result transmitted reference range : 150 - 328 10*3/ ?L. The reference r meredith was not used to interpret this result as normal/abnormal . MPV (test code = 11.6 fL 9.8-13 24955-5) NRBC/100 WBC (test See_Comment [Automat ed code = 5374380105) message] The system which generated this result transmitted reference range : 0.0 - 10.0 /100 WBCs. The refer ence range was not u sed to interpret th is result as normal/abnormal . NRBC x10^3 (test code <0.01 See_Comment [Auto mated = 6636388824) message] The s ystem which generated this result transmitted reference range : 10*3/?L. The reference range was not used to interpret this result as normal/abnormal . GRAN MAT (NEUT) % 79.1 % (test code = 770-8) IMM GRAN % (test code 0.50 % = 9841438541) LYMPH % (test code = 11.0 % 736-9) MONO % (test code = 7.8 % 5905-5) EOS % (test code = 1.4 % 713-8) BASO % (test code = 0.2 % 706-2) GRAN MAT x10^3(ANC) 4.67 10*3/uL 1.99-6.95 (test code = 6021787435) IMM GRAN x10^3 (test 0.03 10*3/uL 0-0.06 code = 7773489450) LYMPH x10^3 (test code 0.65 10*3/uL 1.09-3.23 L = 731-0) MONO x10^3 (test code 0.46 10*3/uL 0.36-1.02 = 742-7) EOS x10^3 (test code = 0.08 10*3/uL 0.06-0.53 711-2) BASO x10^3 (test code <0.03 0.01-0.09 = 704-7) Lab Interpretation Abnormal (test code = 97387-4) [facility] 11:19:00 Test Item Value Reference Range Interpretation Comments MAGNESIUM (test code = 7676622839) 1.7 mg/dL 1.7-2.4 Lab Interpretation (test code = Normal 91607-7) [facility] 11:19:00 Test Item Value Reference Range Interpretation Comments PHOSPHORUS (test code = 0982570729) 3.0 mg/dL 2.5-5 Lab Interpretation (test code = Normal 29557-3) [facility] 1 [id number] 13:59:01 Interval extubation and removal of enteric [...] reviewed this study and agree with theabove report.[facility]47879[facility] (ALB,T.PRO,BILI T,BU/BC,ALT,AST,ALK PHOS) 2020-04-09 11:52:00 Test Item Value Reference Range Interpretation Comments TOTAL BILI (test code = 3172549961) 1.2 mg/dL 0.1-1.1 H BILI UNCON (test code = 6388752494) 0.8 mg/dL 0.1-1.1 BILI CONJ (test code = 7425014106) 0.0 mg/dL 0-0.3 T PROTEIN (test code = 3268299584) 4.2 g/dL 6.3-8.2 L ALBUMIN (test code = 0218172337) 2.2 g/dL 3.5-5 L ALK PHOS (test code = 6399912764) 36 U/L 34-122 ALTv (test code = 1742-6) 13 U/L 5-50 AST(SGOT) (test code = 0995580051) 23 U/L 13-40 Lab Interpretation (test code = Abnormal 55996-6) [facility] [id number] 10:01:00 Test Item Value Reference Range Interpretation [...] RDW-SD (test code = 47.6 fL 38.5-51.6 39853-3) RDW-CV (test code = 14.8 % 12.1-15.4 788-0) PLT (test code = See_Comment L [Automated 777-3) message] The sy stem which generated this result transmitted reference range : 150 - 328 10*3/ ?L. The reference r meredith was not used to interpret this result as normal/abnormal . MPV (test code = 11.6 fL 9.8-13 10729-7) NRBC/100 WBC (test See_Comment [Automat ed code = 1269081779) message] The system which generated this result transmitted reference range : 0.0 - 10.0 /100 WBCs. The refer ence range was not u sed to interpret th is result as normal/abnormal . NRBC x10^3 (test code <0.01 See_Comment [Auto mated = 1281726600) message] The s ystem which generated this result transmitted reference range : 10*3/?L. The reference range was not used to interpret this result as normal/abnormal . GRAN MAT (NEUT) % 87.5 % (test code = 770-8) IMM GRAN % (test code 0.90 % = 5260584066) LYMPH % (test code = 7.5 % 736-9) MONO % (test code = 3.4 % 5905-5) EOS % (test code = 0.5 % 713-8) BASO % (test code = 0.2 % 706-2) GRAN MAT x10^3(ANC) 5.12 10*3/uL 1.99-6.95 (test code = 7793496539) IMM GRAN x10^3 (test 0.05 10*3/uL 0-0.06 code = 6599867248) LYMPH x10^3 (test code 0.44 10*3/uL 1.09-3.23 L = 731-0) MONO x10^3 (test code 0.20 10*3/uL 0.36-1.02 L = 742-7) EOS x10^3 (test code = 0.03 10*3/uL 0.06-0.53 L 711-2) BASO x10^3 (test code <0.03 0.01-0.09 = 704-7) DOHLE BODIES (test Present A code = 7792-5) TOXIC CHANGES (test Present A code = 803-7) Lab Interpretation Abnormal (test code = 68771-2) [facility] METABOLIC PANEL (NA, K, CL, CO2, GLUCOSE, BUN, CREATININE, CA)2020-04-09 09:37:00 Test Item Value Reference Range Interpretation Comments NA (test code = 135 mmol/L 135-145 8038810282) K (test code = 3.6 mmol/L 3.5-5 8243358260) CL (test code = 105 mmol/L 98-108 3062769358) CO2 TOTAL (test code = 31 mmol/L 23-31 3669727591) AGAP (test code = <1 2-16 L 9336370826) BUN (test code = 28 mg/dL 7-23 H 1142256498) GLUCOSE (test code = 95 mg/dL 70-110 2182579563) CREATININE (test code = 0.78 mg/dL 0.6-1.25 4678606943) CALCIUM (test code = 8.1 mg/dL 8.6-10.6 L 3418605468) eGFR Calculation mL/min/1.73m2 (Non-) (test code = 5495811592) eGFR Calculation mL/min/1.73m2 () (test code = 1670736134) GILBERTO (test code = GILBERTO) Association of [...] tests). Lab Interpretation Abnormal (test code = 68345-7) [facility] 09:36:00 Test Item Value Reference Range Interpretation Comments MAGNESIUM (test code = 6239844808) 1.8 mg/dL 1.7-2.4 Lab Interpretation (test code = Normal 00139-6) [facility] 09:36:00 Test Item Value Reference Range Interpretation Comments PHOSPHORUS (test code = 6609781214) 1.8 mg/dL 2.5-5 L Lab Interpretation (test code = Abnormal 40900-3) [facility] + L[facility] [id number] 21:18:00 Test Item Value Reference Range Interpretation Comments PH (test code = 2) 7.35-7.45 PCO2 (test code = See_Comment [Automate d 1176087264) message] The sy stem which generated this result transmitted reference range : 35 - 45 mmHg. The reference range was not used to interpret this result as normal/abnormal . PO2 (test code = See_Comment L [Automated 4988585913) message] The sy stem which generated this result transmitted reference range : 80 - 100 mmHg. The reference range was not used to interpret this result as normal/abnormal . HCO3 (test code = See_Comment [Automate d 5496346517) message] The sy stem which generated this result transmitted reference range : 22 - 26 mEq/L. The reference range was not used to interpret this result as normal/abnormal . BE (test code = See_Comment [Automated 2479314434) message] The sy stem which generated this result transmitted reference range : -3.0 - 3.0 mEq/ L. The reference r meredith was not used to interpret this result as normal/abnormal . THB (test code = 9.2 g/dL 13.5-18 L 2367327269) %O2HB (test code = 94.3 % 94-99 3177538281) %COHB ART (test code = 0.7 % 0-1.5 0620372111) %METHB ART (test code = 0.3 % 0.4-1.5 L 7709701384) VOL%O2 ART (test code = 12.3 % 15-23 L 9431370299) NA (test code = 135 mmol/L 135-145 2808040999) K+ (test code = 3.7 mmol/L 3.5-5 6683045350) AC CA IONZ (test code = 4.90 mg/dL 4.5-5.3 0896811700) GLUCOSE (test code = 94 mg/dL 70-110 1159705886) LACTIC ACID (test code 1.35 mmol/L = 8999611003) Lab Interpretation Abnormal (test code = 86173-0) [facility] GLUCOSE (AUTOMATED)2020-04-08 16:33:00 Test Item Value Reference Range Interpretation Comments POCT GLU (test code = 3424082848) 109 mg/dL 70-110 Lab Interpretation (test code = Normal 02155-1) [facility] GLUCOSE (AUTOMATED)2020-04-08 16:33:00 Test Item Value Reference Range Interpretation Comments POCT GLU (test code = 3825802445) 120 mg/dL 70-110 H Lab Interpretation (test code = Abnormal 93342-1) [facility] GLUCOSE (AUTOMATED)2020-04-08 16:33:00 Test Item Value Reference Range Interpretation Comments POCT GLU (test code = 7714746356) 93 mg/dL 70-110 Lab Interpretation (test code = Normal 14895-1) [facility] GLUCOSE (AUTOMATED)2020-04-08 12:46:00 Test Item Value Reference Range Interpretation Comments POCT GLU (test code = 1216533565) 109 mg/dL 70-110 Lab Interpretation (test code = Normal 00286-6) [facility] WITH [id number] 10:21:00 Test Item Value Reference Range Interpretation [...] RDW-SD (test code = 48.4 fL 38.5-51.6 74980-5) RDW-CV (test code = 15.0 % 12.1-15.4 788-0) PLT (test code = See_Comment L [Automated 777-3) message] The system which generated this result transmitted reference range : 150 - 328 10*3/?L. The reference range was not used to interpret this result as normal/abnormal . MPV (test code = 11.4 fL 9.8-13 78547-7) NRBC/100 WBC (test See_Comment [Automat ed code = 2473788731) message] The system which generated this result transmitted reference range : 0.0 - 10.0 /100 WBCs. The reference range was not used to interpret this result as normal/abnormal . NRBC x10^3 (test code <0.01 See_Comment [Auto mated = 1952950950) message] The system which generated this result transmitted reference range : 10*3/?L. The reference range was not used to interpret this result as normal/abnormal . GRAN MAT (NEUT) % 84.9 % (test code = 770-8) IMM GRAN % (test code 0.80 % = 1554514636) LYMPH % (test code = 7.9 % 736-9) MONO % (test code = 5.3 % 5905-5) EOS % (test code = 0.3 % 713-8) BASO % (test code = 0.8 % 706-2) GRAN MAT x10^3(ANC) 3.34 10*3/uL 1.99-6.95 (test code = 1226789482) IMM GRAN x10^3 (test 0.03 10*3/uL 0-0.06 code = 5335667435) LYMPH x10^3 (test 0.31 10*3/uL 1.09-3.23 L code = 731-0) MONO x10^3 (test code 0.21 10*3/uL 0.36-1.02 L = 742-7) EOS x10^3 (test code <0.03 0.06-0.53 L = 711-2) BASO x10^3 (test code 0.03 10*3/uL 0.01-0.09 = 704-7) GOLDEN CELLS (test code 2+ See_Comment A [Auto mated = 1563-9) message] The system which generated this result transmitted reference range : (none). The reference range was not used to interpret this result as normal/abnormal . BANDS (test code = MARKED INCREASED A 2110018505) DOHLE BODIES (test Present A code = 7792-5) TOXIC CHANGES (test Present A code = 803-7) Lab Interpretation Abnormal (test code = 68193-5) [facility] METABOLIC PANEL (NA, K, CL, CO2, GLUCOSE, BUN, CREATININE, CA)2020-04-08 10:02:00 Test Item Value Reference Range Interpretation Comments NA (test code = 138 mmol/L 135-145 1491650773) K (test code = 4.1 mmol/L 3.5-5 0418859545) CL (test code = 109 mmol/L 98-108 H 4402689756) CO2 TOTAL (test code = 25 mmol/L 23-31 3180055712) AGAP (test code = 2-16 6223871545) BUN (test code = 26 mg/dL 7-23 H 5797358032) GLUCOSE (test code = 103 mg/dL 70-110 0049789775) CREATININE (test code = 0.90 mg/dL 0.6-1.25 0514481277) CALCIUM (test code = 8.4 mg/dL 8.6-10.6 L 0445340891) eGFR Calculation mL/min/1.73m2 (Non-) (test code = 9758632843) eGFR Calculation mL/min/1.73m2 () (test code = 2693781798) GILBERTO (test code = GILBERTO) Association of [...] tests). Lab Interpretation Abnormal (test code = 85548-2) [facility] Test Item Value Reference Range Interpretation Comments MAGNESIUM (test code = 1558828661) 2.6 mg/dL 1.7-2.4 H Lab Interpretation (test code = Abnormal 51293-0) [facility] [id number] 09:43:00 Test Item Value Reference Range Interpretation Comments PH (test code = 7.32-7.42 9516833477) PCO2 PANKAJ (test code = See_Comment [Auto mated 5990874098) message] The sy stem which generated this result transmitted reference range : 41 - 51 mmHg. The reference range was not used to interpret this result as normal/abnormal . PO2 PANKAJ (test code = See_Comment [Autom ated 7182598464) message] The sy stem which generated this result transmitted reference range : 25 - 40 mmHg. The reference range was not used to interpret this result as normal/abnormal . HCO3 PANKAJ (test code = See_Comment [Auto mated 0733359751) message] The sy stem which generated this result transmitted reference range : 24 - 28 mEq/L. The reference range was not used to interpret this result as normal/abnormal . AC VBE(BEAKER) (test mEq/L code = 9848790837) THB PANKAJ (test code = 11.4 g/dL 13.5-18 L 9230846449) %O2HB PANKAJ (test code = 64.9 % 52-63 H 2721594915) %COHB PANKAJ (test code = 1.0 % 0-1.5 7910475271) %METHB PANKAJ (test code = 0.3 % 0.4-1.5 L 9130867106) VOL%O2 PANKAJ (test code = 10.4 % 6-12 5842572352) NA (test code = 138 mmol/L 135-145 1289426043) K+ (test code = 4.1 mmol/L 3.5-5 5780797894) AC CA IONZ (test code = 4.90 mg/dL 4.5-5.3 5721330192) GLUCOSE (test code = 98 mg/dL 70-110 2327405232) LACTIC ACID (test code 1.90 mmol/L = 5277481265) Lab Interpretation Abnormal (test code = 70379-7) [facility] 04:25:00 Test Item Value Reference Range Interpretation Comments POCT GLU (test code = 1764296822) 106 mg/dL 70-110 Lab Interpretation (test code = Normal 04403-0) [facility] [id number] 22:55:21Impression: Stable findings with no new changes.Exam: [...] lefthemidiaphragm. Bones and upper abdomen are unchanged. [facility], Radiant Results Inft User - 04/07/2020 5:56 [...] unchanged.IMPRESSIONIm pression: Stable findings with no new changes.[facility] MRSA / MSSA Screen by [id number] 19:28:00 Test Item Value Reference Range Interpretation Comments MSSA Screen by Estefanía VIEIRA (test code Negative Negative = 96814-4) MRSA/MSSA Positive? (test code = No No [id number]) Lab Interpretation (test code = Normal 79644-5) [facility]2020-04-07 17:01:00 Test Item Value Reference Range Interpretation Comments POCT GLU (test code = 9524409970) 95 mg/dL 70-110 Lab Interpretation (test code = Normal 60929-7) [facility] + LACTIC [id number] 14:15:00 Test Item Value Reference Range Interpretation Comments PH (test code = 2) 7.35-7.45 L PCO2 (test code = See_Comment [Automate d 7760486562) message] The sy stem which generated this result transmitted reference range : 35 - 45 mmHg. The reference range was not used to interpret this result as normal/abnormal . PO2 (test code = See_Comment H [Automated 2269200863) message] The sy stem which generated this result transmitted reference range : 80 - 100 mmHg. The reference range was not used to interpret this result as normal/abnormal . HCO3 (test code = See_Comment L [Automate d 4421557204) message] The sy stem which generated this result transmitted reference range : 22 - 26 mEq/L. The reference range was not used to interpret this result as normal/abnormal . BE (test code = See_Comment L [Automated 0370647592) message] The sy stem which generated this result transmitted reference range : -3.0 - 3.0 mEq/ L. The reference r meredith was not used to interpret this result as normal/abnormal . THB (test code = 9.6 g/dL 13.5-18 L 5684728496) %O2HB (test code = 98.6 % 94-99 3745516737) %COHB ART (test code = 0.3 % 0-1.5 6663250209) %METHB ART (test code = 0.0 % 0.4-1.5 L 7092330665) VOL%O2 ART (test code = NA 6516269063) NA (test code = 131 mmol/L 135-145 L 2099772190) K+ (test code = 4.3 mmol/L 3.5-5 7811610307) AC CA IONZ (test code = 4.60 mg/dL 4.5-5.3 8275016483) GLUCOSE (test code = 147 mg/dL 70-110 H 1238189563) LACTIC ACID (test code 3.12 mmol/L 0.5-2.2 H = 8433287265) Lab Interpretation Abnormal (test code = 72970-9) [facility] Whole [id number] 14:00:00 Test Item Value Reference Range Interpretation Comments LACTIC ACID (test code = 3.12 mmol/L 5824742037) [facility]2020-04-07 12:53:00 Test Item Value Reference Range Interpretation Comments POCT GLU (test code = 8854293646) 140 mg/dL 70-110 H Lab Interpretation (test code = Abnormal 23776-6) [facility] + LACTIC [id number] 12:01:00 Test Item Value Reference Range Interpretation Comments PH (test code = 2) 7.35-7.45 L PCO2 (test code = See_Comment L [Automate d 7997058540) message] The sy stem which generated this result transmitted reference range : 35 - 45 mmHg. The reference range was not used to interpret this result as normal/abnormal . PO2 (test code = See_Comment H [Automated 6724925203) message] The sy stem which generated this result transmitted reference range : 80 - 100 mmHg. The reference range was not used to interpret this result as normal/abnormal . HCO3 (test code = See_Comment L [Automate d 4117276583) message] The sy stem which generated this result transmitted reference range : 22 - 26 mEq/L. The reference range was not used to interpret this result as normal/abnormal . BE (test code = See_Comment L [Automated 8801226638) message] The sy stem which generated this result transmitted reference range : -3.0 - 3.0 mEq/ L. The reference r meredith was not used to interpret this result as normal/abnormal . THB (test code = 10.8 g/dL 13.5-18 L 6398582533) %O2HB (test code = 98.8 % 94-99 6028828776) %COHB ART (test code = 0.3 % 0-1.5 6861534201) %METHB ART (test code = 0.0 % 0.4-1.5 L 0309689124) VOL%O2 ART (test code = 15.4 % 15-23 3848367136) NA (test code = 126 mmol/L 135-145 L 3193079370) K+ (test code = 4.3 mmol/L 3.5-5 0765630141) AC CA IONZ (test code = 4.70 mg/dL 4.5-5.3 9535619724) GLUCOSE (test code = 144 mg/dL 70-110 H 1993891983) LACTIC ACID (test code 2.79 mmol/L = 9957963203) Lab Interpretation Abnormal (test code = 17275-2) [facility] [id number] 11:44:00 Test Item Value Reference Range Interpretation Comments URINE CULTURE (test No aerobic growth (< code = 630-4) 1000 CFU/mL) [facility] WITH [id number] 09:53:00 Test Item Value Reference Range Interpretation [...] RDW-SD (test code = 48.8 fL 38.5-51.6 59556-2) RDW-CV (test code = 15.0 % 12.1-15.4 788-0) PLT (test code = See_Comment L [Automated 777-3) message] The sy stem which generated this result transmitted reference range : 150 - 328 10*3/ ?L. The reference r meredith was not used to interpret this result as normal/abnormal . MPV (test code = 11.8 fL 9.8-13 66649-5) IPF % (test code = 6.5 % 1.2-10.7 Platelet count 5872791736) measured by fluorescence method. NRBC/100 WBC (test See_Comment [Automat ed code = 9031895875) message] The system which generated this result transmitted reference range : 0.0 - 10.0 /100 WBCs. The refer ence range was not u sed to interpret th is result as normal/abnormal . NRBC x10^3 (test code <0.01 See_Comment [Auto mated = 0996981510) message] The s ystem which generated this result transmitted reference range : 10*3/?L. The reference range was not used to interpret this result as normal/abnormal . SEG % (test code = 20 % 33-76 L 25465-6) BAND % (test code = 45 % 0-1 H 46038-1) META % (test code = 9 % See_Comment H [Automa dain 39261-8) message] The sy stem which generated this result transmitted reference range : <=0. The refere nce range was not u sed to interpret th is result as normal/abnormal . MYELO % (test code = 1 % See_Comment H [Autom ated 84453-2) message] The sy stem which generated this result transmitted reference range : <=0. The refere nce range was not u sed to interpret th is result as normal/abnormal . LYMPH % (test code = 20 % 14-54 75666-4) MONO % (test code = 5 % 0-4 H 84817-4) ANC (test code = 1.40 10*3/uL 1.99-6.95 L 6995766103) GOLDEN CELLS (test code 2+ See_Comment A [...] 803-7) Lab Interpretation Abnormal (test code = 05348-9) [facility] METABOLIC PANEL (NA, K, CL, CO2, GLUCOSE, BUN, CREATININE, CA)2020-04-07 09:21:00 Test Item Value Reference Range Interpretation Comments NA (test code = 137 mmol/L 135-145 2770436411) K (test code = 4.6 mmol/L 3.5-5 0891468217) CL (test code = 110 mmol/L 98-108 H 5715229513) CO2 TOTAL (test code = 17 mmol/L 23-31 L 1532928538) AGAP (test code = 2-16 6506162795) BUN (test code = 24 mg/dL 7-23 H 9895644202) GLUCOSE (test code = 132 mg/dL 70-110 H 1440299991) CREATININE (test code = 1.23 mg/dL 0.6-1.25 4157653486) CALCIUM (test code = 8.0 mg/dL 8.6-10.6 L 1710311917) eGFR Calculation mL/min/1.73m2 (Non-) (test code = 1591358368) eGFR Calculation mL/min/1.73m2 () (test code = 1837434600) GILBERTO (test code = GILBERTO) Association of [...] tests). Lab Interpretation Abnormal (test code = 31089-2) [facility] 09:19:00 Test Item Value Reference Range Interpretation Comments MAGNESIUM (test code = 3395361719) 2.9 mg/dL 1.7-2.4 H Lab Interpretation (test code = Abnormal 89029-0) [facility]2020-04-07 04:37:00 Test Item Value Reference Range Interpretation Comments POCT GLU (test code = 0991579738) 111 mg/dL 70-110 H Lab Interpretation (test code = Abnormal 78681-9) [facility] HospitalHCV [id number] 02:35:00 Test Item Value Reference Range Interpretation Comments HCV Ab (test code = 30066-2) Negative HCV Semi-Quantitative (test code = 87456-6) [facility] + LACTIC [id number] 02:15:00 Test Item Value Reference Range Interpretation Comments PH (test code = 7.32-7.42 L 4041178156) PCO2 PANKAJ (test code = See_Comment L [Auto mated 2112218838) message] The sy stem which generated this result transmitted reference range : 41 - 51 mmHg. The reference range was not used to interpret this result as normal/abnormal . PO2 PANKAJ (test code = See_Comment HH [Autom ated 3236109029) message] The sy stem which generated this result transmitted reference range : 25 - 40 mmHg. The reference range was not used to interpret this result as normal/abnormal . HCO3 PANKAJ (test code = See_Comment L [Auto mated 2858526991) message] The sy stem which generated this result transmitted reference range : 24 - 28 mEq/L. The reference range was not used to interpret this result as normal/abnormal . AC VBE(BEAKER) (test mEq/L code = 3762380271) THB PANKAJ (test code = 11.2 g/dL 13.5-18 L 0851213428) %O2HB PANKAJ (test code = 98.7 % 52-63 H 8793490577) %COHB PANKAJ (test code = 0.3 % 0-1.5 0985609171) %METHB PANKAJ (test code = 0.1 % 0.4-1.5 L 2702897437) VOL%O2 PANKAJ (test code = 15.9 % 6-12 H 1354855926) NA (test code = 136 mmol/L 135-145 1121446609) K+ (test code = 4.2 mmol/L 3.5-5 9935466550) AC CA IONZ (test code = 4.60 mg/dL 4.5-5.3 9170993185) GLUCOSE (test code = 108 mg/dL 70-110 0834068812) LACTIC ACID (test code 2.37 mmol/L = 6551957823) Lab Interpretation Abnormal (test code = 55513-9) [facility]X+NA+K+GLU+CA2+2020-04-07 01:54:00 Test Item Value Reference Range Interpretation Comments PH (test code = 2) 7.35-7.45 LL PCO2 (test code = See_Comment [Automate d message] 3090788735) The system [employer] generated this result transmit dain reference range : 35 - 45 mmHg. The reference range was not used to interpret this result as normal/abnormal . PO2 (test code = See_Comment H [Automated message] 7064683308) The system [employer] generated this result transmit dain reference range : 80 - 100 mmHg. The reference range was not used to interpret this result as normal/abnormal . HCO3 (test code = See_Comment L [Automate d message] 1907835299) The system [employer] generated this result transmit dain reference range : 22 - 26 mEq/L. The reference range was not used to interpret this result as normal/abnormal . BE (test code = See_Comment L [Automated message] 4900565092) The system [employer] generated this result transmit dain reference range : -3.0 - 3.0 mEq/ L. The reference r meredith was not used to interpret this result as normal/abnormal . THB (test code = 10.6 g/dL 13.5-18 L 5369353669) %O2HB (test code = 99.0 % 94-99 5407280469) %COHB ART (test code = 0.3 % 0-1.5 9348630200) %METHB ART (test code = 0.3 % 0.4-1.5 L 3102919728) VOL%O2 ART (test code = 15.3 % 15-23 9049647794) NA (test code = 136 mmol/L 135-145 3875102906) K+ (test code = 3.1 mmol/L 3.5-5 L 7473954482) AC CA IONZ (test code = 4.30 mg/dL 4.5-5.3 L 4835031270) GLUCOSE (test code = 113 mg/dL 70-110 H 9057542306) Lab Interpretation Abnormal (test code = 03773-6) [facility]COOX+NA+K+GLU+CA2+2020-04-07 01:53:00 Test Item Value Reference Range Interpretation Comments PH (test code = 2) 7.35-7.45 PCO2 (test code = See_Comment L [Automate d message] 6974239222) The system [employer] generated this result transmit dain reference range : 35 - 45 mmHg. The reference range was not used to interpret this result as normal/abnormal . PO2 (test code = See_Comment H [Automated message] 3546423301) The system [employer] generated this result transmit dain reference range : 80 - 100 mmHg. The reference range was not used to interpret this result as normal/abnormal . HCO3 (test code = See_Comment L [Automate d message] 8538434768) The system [employer] generated this result transmit dain reference range : 22 - 26 mEq/L. The reference range was not used to interpret this result as normal/abnormal . BE (test code = See_Comment L [Automated message] 8823598248) The system [employer] generated this result transmit dain reference range : -3.0 - 3.0 mEq/ L. The reference r meredith was not used to interpret this result as normal/abnormal . THB (test code = 13.1 g/dL 13.5-18 L 6139813957) %O2HB (test code = 98.9 % 94-99 2420694172) %COHB ART (test code = 0.1 % 0-1.5 6186497194) %METHB ART (test code = 0.6 % 0.4-1.5 1132135345) VOL%O2 ART (test code = 19.3 % 15-23 0236764841) NA (test code = 132 mmol/L 135-145 L 9124659886) K+ (test code = 4.2 mmol/L 3.5-5 6292911501) AC CA IONZ (test code = 4.60 mg/dL 4.5-5.3 7263033462) GLUCOSE (test code = 99 mg/dL 70-110 5101226931) Lab Interpretation Abnormal (test code = 78577-6) [facility] WITH [id number] 01:29:00 Test Item Value Reference Range Interpretation Comments HIV Negative Negative Semi-quantitative (test code = 75856-9) GILBERTO (test code = Non-reactive for HIV-1 GILBERTO) antigen and HIV-1/HIV-2 antibodies. ?No laboratory evidence of HIV infection. ?Repeat in 2-4 weeks if acute HIV infection is suspected. [facility] GLUCOSE (AUTOMATED)2020-04-07 00:40:00 Test Item Value Reference Range Interpretation Comments POCT GLU (test code = 0595215694) 100 mg/dL 70-110 Lab Interpretation (test code = Normal 38591-7) [facility] GLUCOSE (AUTOMATED)2020-04-07 00:06:00 Test Item Value Reference Range Interpretation Comments POCT GLU (test code = 8526005014) 116 mg/dL 70-110 H Lab Interpretation (test code = Abnormal 98619-6) [facility] GLUCOSE (AUTOMATED)2020-04-06 22:48:00 Test Item Value Reference Range Interpretation Comments POCT GLU (test code = 1151780452) 94 mg/dL 70-110 Lab Interpretation (test code = Normal 17454-7) [facility] [id number] 21:06:45 1. Interval placement of right internal [...] this study and agree with the abovereport.[facility] WITH [id number] 20:15:00 Test Item Value Reference Range Interpretation [...] RDW-SD (test code = 49.2 fL 38.5-51.6 99715-1) RDW-CV (test code = 14.7 % 12.1-15.4 788-0) PLT (test code = See_Comment L [Automated 777-3) message] The sy stem which generated this result transmitted reference range : 150 - 328 10*3/ ?L. The reference r meredith was not used to interpret this result as normal/abnormal . MPV (test code = 12.1 fL 9.8-13 03734-2) NRBC/100 WBC (test See_Comment [Automat ed code = 2763288061) message] The system which generated this result transmitted reference range : 0.0 - 10.0 /100 WBCs. The refer ence range was not u sed to interpret th is result as normal/abnormal . NRBC x10^3 (test code <0.01 See_Comment [Auto mated = 3528739476) message] The s ystem which generated this result transmitted reference range : 10*3/?L. The reference range was not used to interpret this result as normal/abnormal . SEG % (test code = 38 % 33-76 68150-1) BAND % (test code = 28 % 0-1 H 94235-9) META % (test code = 4 % See_Comment H [Automa dain 93309-4) message] The sy stem which generated this result transmitted reference range : <=0. The refere nce range was not u sed to interpret th is result as normal/abnormal . MYELO % (test code = 6 % See_Comment H [Autom ated 30117-8) message] The sy stem which generated this result transmitted reference range : <=0. The refere nce range was not u sed to interpret th is result as normal/abnormal . LYMPH % (test code = 16 % 14-54 23302-9) MONO % (test code = 8 % 0-4 H 75307-4) ANC (test code = 0.40 10*3/uL 1.99-6.95 L 3275269716) GOLDEN CELLS (test code 3+ See_Comment A [Auto mated = 7790-9) message] The sy stem which generated this result transmitted reference range : (none). The reference range was not used to interpret this result as normal/abnormal . DOHLE BODIES (test Present A code = 7792-5) Lab Interpretation Abnormal (test code = 24005-1) [facility] 19:55:00 Test Item Value Reference Range Interpretation Comments APTT Patient (test code See_Comment H [Au tomated message] = 3173-2) The system [employer] generated this result transmitted ref erence range: 26 - 36 Seconds. The reference range was not used to int erpret this result as normal/abnormal . Lab Interpretation (test Abnormal code = 16404-3) [facility] HospitalPROTHROMBIN [facility] / [id number] 19:55:00 Test Item Value Reference Range Interpretation [...] tions. Lab Interpretation (test Abnormal code = 10761-7) [facility]. METABOLIC PANEL (81628)2020-04-06 19:50:00 Test Item Value Reference Range Interpretation Comments NA (test code = 137 mmol/L 135-145 1308893820) K (test code = 3.6 mmol/L 3.5-5 7685493271) CL (test code = 109 mmol/L 98-108 H 8110917502) CO2 TOTAL (test code = 18 mmol/L 23-31 L 7143468109) AGAP (test code = 2-16 3955762609) BUN (test code = 27 mg/dL 7-23 H 1725425402) GLUCOSE (test code = 91 mg/dL 70-110 5751015445) CREATININE (test code = 1.38 mg/dL 0.6-1.25 H 3948115718) TOTAL BILI (test code = 1.0 mg/dL 0.1-1.4 4251958829) CALCIUM (test code = 8.0 mg/dL 8.6-10.6 L 3917562059) T PROTEIN (test code = 4.3 g/dL 6.3-8.2 L 6529734923) ALBUMIN (test code = 2.7 g/dL 3.5-5 L 5094306738) ALK PHOS (test code = <20 34-122 L 9944187832) ALTv (test code = 9 U/L 5-50 1742-6) AST(SGOT) (test code = 21 U/L 13-40 9229648196) eGFR Calculation mL/min/1.73m2 (Non-) (test code = 7385978246) eGFR Calculation mL/min/1.73m2 () (test code = 2097206072) GILBERTO (test code = GILBERTO) Association of [...] tests). Lab Interpretation Abnormal (test code = 62538-7) [facility] (NA, K, CL, CO2, GLUCOSE, BUN, CREATININE, CA)2020-04-06 19:50:00 Test Item Value Reference Range Interpretation Comments NA (test code = 137 mmol/L 135-145 7692613785) K (test code = 3.6 mmol/L 3.5-5 9373896529) CL (test code = 109 mmol/L 98-108 H 9433970729) CO2 TOTAL (test code = 18 mmol/L 23-31 L 5507996749) AGAP (test code = 2-16 7859439748) BUN (test code = 27 mg/dL 7-23 H 6337651665) GLUCOSE (test code = 91 mg/dL 70-110 7888046203) CREATININE (test code = 1.38 mg/dL 0.6-1.25 H 5741617083) CALCIUM (test code = 8.0 mg/dL 8.6-10.6 L 5883623417) eGFR Calculation mL/min/1.73m2 (Non-) (test code = 3445611815) eGFR Calculation mL/min/1.73m2 () (test code = 5021213442) GILBERTO (test code = GILBERTO) Association of [...] tests). Lab Interpretation Abnormal (test code = 15251-5) [facility] 19:44:00 Test Item Value Reference Range Interpretation Comments MAGNESIUM (test code = 9502368585) 1.7 mg/dL 1.7-2.4 Lab Interpretation (test code = Normal 35477-4) [facility] + LACTIC [id number] 19:25:00 Test Item Value Reference Range Interpretation Comments PH (test code = 7.32-7.42 L 2452140088) PCO2 PANKAJ (test code = See_Comment L [Auto mated 5578353232) message] The sy stem which generated this result transmitted reference range : 41 - 51 mmHg. The reference range was not used to interpret this result as normal/abnormal . PO2 PANKAJ (test code = See_Comment H [Autom ated 8154949816) message] The sy stem which generated this result transmitted reference range : 25 - 40 mmHg. The reference range was not used to interpret this result as normal/abnormal . HCO3 PANKAJ (test code = See_Comment L [Auto mated 5721842348) message] The sy stem which generated this result transmitted reference range : 24 - 28 mEq/L. The reference range was not used to interpret this result as normal/abnormal . AC VBE(BEAKER) (test mEq/L code = 0174184317) THB PANKAJ (test code = 10.1 g/dL 13.5-18 L 4905295668) %O2HB PANKAJ (test code = 84.0 % 52-63 H 7637586998) %COHB PANKAJ (test code = 0.6 % 0-1.5 5513817118) %METHB PANKAJ (test code = 0.3 % 0.4-1.5 L 8009295141) VOL%O2 PANKAJ (test code = 12.0 % 6-12 8573302868) NA (test code = 135 mmol/L 135-145 3929477127) K+ (test code = 3.5 mmol/L 3.5-5 9957354942) AC CA IONZ (test code = 4.50 mg/dL 4.5-5.3 9252902577) GLUCOSE (test code = 87 mg/dL 70-110 8424028268) LACTIC ACID (test code 3.34 mmol/L = 6268817882) Lab Interpretation Abnormal (test code = 88627-2) [facility] LACTIC [id number] 19:19:00 Test Item Value Reference Range Interpretation Comments PH (test code = 2) 7.35-7.45 L PCO2 (test code = See_Comment L [Automate d 7594652203) message] The sy stem which generated this result transmitted reference range : 35 - 45 mmHg. The reference range was not used to interpret this result as normal/abnormal . PO2 (test code = See_Comment H [Automated 3082138604) message] The sy stem which generated this result transmitted reference range : 80 - 100 mmHg. The reference range was not used to interpret this result as normal/abnormal . HCO3 (test code = See_Comment L [Automate d 8539513907) message] The sy stem which generated this result transmitted reference range : 22 - 26 mEq/L. The reference range was not used to interpret this result as normal/abnormal . BE (test code = See_Comment L [Automated 4004555271) message] The sy stem which generated this result transmitted reference range : -3.0 - 3.0 mEq/ L. The reference r meredith was not used to interpret this result as normal/abnormal . THB (test code = 10.4 g/dL 13.5-18 L 2090974035) %O2HB (test code = 98.3 % 94-99 8039056321) %COHB ART (test code = 0.3 % 0-1.5 6560885042) %METHB ART (test code = 0.3 % 0.4-1.5 L 8266343834) VOL%O2 ART (test code = 14.8 % 15-23 L 8635388908) NA (test code = 135 mmol/L 135-145 3415322371) K+ (test code = 3.5 mmol/L 3.5-5 2349280089) AC CA IONZ (test code = 4.50 mg/dL 4.5-5.3 3594740937) GLUCOSE (test code = 96 mg/dL 70-110 0498162116) LACTIC ACID (test code 2.95 mmol/L = 2205193425) Lab Interpretation Abnormal (test code = 06486-3) [facility] [id number] 16:51:00 Test Item Value Reference Range Interpretation Comments Case Report (test code Surgical Pathology ? ? = [id number]) ?Case: [id number] ? Authorizing Provider: ?Bia Pedro MD ?Collected: ? 04/03/2020 1513 ?Ordering Location: ? ? [facility] OR ? Received: ?04/03/20207 ? Department ? Pathologist: ? Nimisha Galloway, PHD ?Specimens: ? A) - COLON, total abdominal colectomy ? B) - COLON, donuts x2 ? Final Diagnosis (test u3ksqXWoSNFgq5daFBMblB code = 9907973652) FuZzEwMzNcZnRuYmpcdWMx QRzvobFiIVmlk3CoE8PhXc AwMFxhbnNpXGRlZmxhbmcx VPMtNPV5saBlJSHeSVxdNG LiHYhbEp6azXGmmWgxNmEt BUYqm8vkokQQsjfiuEb1c3 jdVJZwBpE7zAEgHKblC4wd pbKreSYrXEUvLZz5qH15EI SfzU1hhUZaYMwuddVjJGet obWpyoWdRip7FBMhY5jhAT WgQSFaM4VsED9oZJLaTpo6 KEU5CKK7vNoeo2Z8pVPvmJ VfcUqkImXyEcUtFZASp3Vj RNa4rGmmD1AeXGTdCkG8nV QgUGFyYWdyYXBoIEZvbnQ7 kQrpC4EuLTIbSpV8dUPzNS NwUYwgYEEmZg0csNd7vPyb JsegGZE3Cvg0PY6dck91fy j3eJthFZXyjakkSvH0HAbv EIVdayhaCSx5JJceOWEtfO UyFZZsjEWlS2CnBCihYA8f pau6KdQdZY4rdfziUHdkAD IbFQX4OqKtHYSdn1Psrrnd CkLhvh8owx52RAB5s9ZoaX uiQXG0PQP0UoKdXb3mmIMh SRFdXB3vSuYdfMTnKKGgyk 01iOpyTKwagyAdoK3oPcCh MODgxJKnNWYdPE4xvDRaDY RqsE2lydtrMYJlPeCmdqlc ENAmhBcyeoZxZt8hoLbkAK R2ZJqbM3myvC6mKcN5CHif R8rulZ0wVKk4VXiwcQK7TG PvsO3kNS5ngwcgo0ffMWG5 BQeaQZCaytY5cjOqGQQfjA QcZ2ZoeR56MtNuwSQiC6Os jE6vBBkyOLYesfg5HzWvBi 3hhTSejYX4LOtiNdzkQKgu XHBnbmNvbnRccGduZGVjXH BsYWluXHBsYWluXGYwXGZz RzRzpNxwbTxrlH3fOaPaVs MyMFxwbGFpblxmMVxmczIw UVGdzdOHUrEXB5eEDbkyIP 4TGZyrXdDEPQWTBC8TIjyh ZDOtPEWdUC0oNzFWZ2HBOF LqI50UK0ZCXXcYExGLZUKY KWFBMg1TO56UUMYZUG7JZr VINQbIAJOWB48AVXDLSKEF YdEZCFYJFVDVX8vNHFluQZ GyMJRqESYeM9HVKOSFQ7CR C16xQWZvydPjJBHtNQTRDB tOXLIOVBOBANXUN6PGGT3R CO8MTXuQXXKqP7yLGMRMNA SaN61EG55KDoEDThNULFgK WGILAMITUT4FQAmINcYJOQ eUSyvAYSSRJ9MILRXmwOQn TEWoPDKwOB7BR8HAUTLRUQ 9OXHBhciAgICAgLSBOTyBF AwqFKD3CRBZXNuJEKPZXL1 UWIY7YD1NFM7gTXPowYARb LADmFA4kSA9OMLOAEtZFPU BTRVNTSUxFIFNFUlJBVEVE XYZOEX1ILLRthRCmHREsBX AtIFJFQUNUSVZFIExZTVBI XF5ABPLLGXJfbwNaGYGcKH ZBTYWREMCeKrFMBPMVRB4X NQ4KDmvUQyHacLUlEIOlvb xwbGFpblxmMVxmczIyXGxh qfymXDHpGGvkB9vwKnBnHT HvqAayTMymi0KmHOUkATWz FKgthgChXKUzn1lyEXKnBd U6zZTgHLXLFmDQFuQuLD9a ZZ9tGTCbZATiYScxZeCBOF xwbGFpblxmMVxmczIwXHBh kidgXWG7h0rfoUXtZVDinH WkClQoESNfSNQio0ssVGWj bGFuZzEwMzNcZnRuYmpcdW ZsNDKbIrVkl2zvv714kDCa y6krENQaCfT7nZEjETKxeH nrglr8sEhzAzBhOOIro9xd cyBcZmNoYXJzZXQwIEFyaW IiI576RIQmKUlsg9cph0Cp SFCqdVDfh9O0WPXMEDccRk PxM014f8ijs2jkztIrhGR4 IFMbCUX1EQebdlWzxzW3QE vwrZQpAcV3RYjapzVzYXuv ygKvdqWnUxw4BAAwS084QE R2lEszl8pcGBX8OFDhJCGg DsckBm0xoFWaP739YVAdEP TMYACcpDm3EDRwbrFnicIb rJOPw581C298o4apHTJxsv YusFsOkfumf7pyC460VAGb cGVydzEyMjQwXHBhcGVyaD P5DHPjLR2upgisELwyTRiy ZVKrxgW6MVMliZJtQ6XjFD EaVQ9wslzrMNT7LZvwYULe ECJ3WsRsAMGwu3Mkahl8Ls Jdfm9uzh35DNH7b5BvdPdk LBE2JWS9ShBtJz3pmKKoBC NsGH3oUvWpzXUpUEFysp93 hRwhHLcfomSviQ4iCzWjUM HmsJKrQGGuHF6ghQRaCEKi dW4xkgipERZrChReaqkzJG RhdTtfixLfZe5tfHlbJAC0 CHpsX9xyrV5iKpP8IEfqI9 hprK0pTUz0ORbfyQW4TWJe eU5bXA7bicsia2mqDGqnHE ijETOthzE4amZ2XIJgwOUa C1WvgB5zALGaEH2ylurdu4 aqQKX2YRujBUTqUUG3DuHk NCLsa1Sfhak7HmZzz8EshD VzZJszR46pu116UTCdiiQk O8fzjIVuhvxybLCdjwmcQD wxwmE4JPChQQIaJPklJGMs XGZzMjBcbGFuZzEwMzNcaG ljaFxmMVxkYmNoXGYxXGxv D0exUoHpY3BnIBPvVlFqlF YeLBayjRQ6FZIpDJHoj75e vTk5BUIxxwadf8DgUBZboJ PbyDJduW5feiCpb3bkPQRd ILEqPKQbA7LiAMG6cMGwHF QrzCOqeMM2VZ6rwrZuCQ0r ZGUgYnkgcmVzaWRlbnRzLC GmTSdfa0vrSY6rSOPkxXoy mH1uxIW1QYOlo0yjoICruK Xip9myj2WxzeIzKOyfYXCw SPkuRMMgAMXpPX0fJASvbO OaruNoa3O4VgkddVNlkiih CofffpN0GZrusswbFICsZD ujH5fcYeAnDPBjeKnmPcmf u3UqXAAvTQKdTmcddBHuxG 0= Clinical Information Large bowel (test code = obstruction [K56.609] 1342081671) Gross Description (test i4tuxIBeBKCxbSEhTwVpYF code = 3287972289) RlTVUhg9loIWWkvWBiWhIu MzNcZnRuYmpcdWMxXGRlZm Ojx2arz996tRNvx1joGYHp LgE9wWDtZAIkgSPvI834BE TtLBnie0yqp3ZtWNRuxIWj k5Y2YRJYeuadvOj9hTnvN8 6wm7Q4RmbkM5nuTGMpLWln CLGdEFgfoCSeSHU4BJBjKG T9IUtskpSvskI1WWillQKj SgI0XZd9r4matWpjLZUpIB H7n8onBSelcwXqSD2sum0e kDt2r7ryukDhOGLvZSIbfY LIJVVfU3TbpVrhCx9tgVx4 jNzpYvozSAG2Dli0MV3udm 30uhu3nMcxZLVoqcpvLbC5 CMfpFQIaocozHHp0TOecJG BvyOPuMWAgpNGkB6RnWPfe HZ1zrvr0PpTnQS2dtfyhJD ceXCBnWYF3NkNzREFtf6Fh psmoDfSzky5amv80PCB8w1 LkzTnlFYW3YRL6AgNxDb8l jRGbIAAeSA4hMdRluJWuAR Auig95jNjpLRpospRgxR9o UzUlTFUojBGgPHBzYO2fjU OnNMZlxB9vbpzgZTTlQmRc yoqnUVPxoRwvdwAvBx0buB jfYTZ2PVcsS1gdhA1tAtA8 PPeeO4speA7zGVg6CSnptZ D8JIJqoA6tEP8qzoicr5kq WII2MOgyGIKnirN8htDmQW ThgZLjT2VrfP53EcKonHGi D2AktL5tWGdjEOCsefk4Fv DsOe6knWYylZA2UVtfNzbk YWdlXHBnbmNvbnRccGduZG VjXHBsYWluXHBsYWluXGYw EROzShAytDagzBnmeD6zCm BcZnMyMFxwbGFpblxmMVxm czIwIFNwZWNpbWVuIEEgaX JwjdIlAVm4YMWhZqKcr7sz gLFcLFdbSDBwf5z9qTE5zH YyrMX7rCNpzXesBT4qaPTo XJFAMI17tJWyyhMyV47aw8 5xQUQimBSdUJMgEX0eqM9p rPBdt8iwJ4QjaOipFURalw IbT31hm0unaTJgm4PwKEQ7 x0KgaUNrj4fnO2XxiKibh6 UwZ5thFI0fRLtgUhOqN62e lR6abXXvX7YgYFndOR4eAJ XpNsYfI21odZ3bVJwwdHW7 LLHaMDorkWdwBOJ5AJPlXV IppZIphLgbLWjadDweiR5w UIAsNUFbqBWalgFyQK9hrU tswAY5YrBqE15dRDbkhGF9 RBToFTP3hATsRN9zPVpna3 NzbHkgaWRlbnRpZmlhYmxl JCAgxXUmVZa8CqBQvQIvn2 Msd7KkFUkkJYYfmx1wDTRq GU7zRYNmb907kHA4dYDmRW VoxIU6XSLilbNif6Rkqa2r VGhlIHNwZWNpbWVuIGlzIG 0iYX6tAVHqqW5bSaXswYQn NY82pY6zf3GjvFRgtTErCa 9yZGVyLiBUaGVyZSBpcyBh JJYbztZ3wSLsjkYezVqklN L1DYwcBBjkBBvdGYReN6Vb YNZrs97bEMZdvcF4dT00yk ZawYJlSYO2MDPbXFCzzZFh SnHjR37hBgZpbXJ2zBSfQH dmuBDzKL8xpxkdsbBoylMj BMGmY27kQgJfxMZ5bRTvaX QdcRlxFYnreLMsT2raNqTQ tq50nS5teHI0nwL5sJVfyT BayqvwtHVtySVhLY56xS1p VHIgn7RpH9cmAZhoy7Bhaj I2sBUfNx07NLzmcQIvNQix dGVuZGVkIGZvciBhIGxlbm a0wEEaHaCoGW6zDTOgFkUL pXLaaF8fyIywFAQya7Daoq QaPEDwSPwpn96itAipUH37 S55bRMIsuyGzj1AifUv4SQ KfMHV9DL5aWYpeV0QnvwZi YXIsIHdpdGggYXJlYXMgb2 MpI76lEejly3KwxrDiXMYf MIMdUG8sNACzonKbW0xwTi Sysq9fHTLjFG5eBb99CIOx JS9tXFvfFWdvuKonh0OjnS xrSGSaw0ZugxJxYMDfKOkk m92fbHZkgHzfW9ubhgObBX CoNDBotQGuIKP5TSfdWU7k gC2lRDVeo70xLN9sHTRaTv CekYliKAWcJQYjNU8bwS7c wlgfwNNwh7HwMA8eJNFpKS Xgi6vnssOihsW8EL1frAkt pdCyvdIuxFwzJLDct7JadO WtVSQhgO5yYYBjPYRswkXo we9cr6w9HAGwHKCqLU0mLR UhuTivWKzxGT4nXMNraURn tB4cgKmeulL2hEZfGCHtji BhbiBhZGRpdGlvbmFsIHdl rYnldEZlsIPrCEW6biojU3 KvWZHmFGHyRPLuo4QitIB4 seG5pGBioSauj9BcF1MpAF w0aiH0zM5dVXPgWVDvAYck MBEtfH5mg5ohwJTrdNznm8 KiB2BbTRAtaLMoSMbueLnl AW6tXAA3YTJnWDWqu7SobX EstKLiNiCjtaDcl5TuuzEc UAOdIQEqnHLyjfLfER4obK xeXlriHQ53SMUsKJddBUJl IS4nuPYjIDX1vWBiHVTzv2 YqdVKrXTXyNACpk6SnjEyu IGxpbmUgYXQgdGhlIGJsaW 5pUGQqQTfmv9Wmfk60erPv NGOsvHOjpPLbZ6ihAMTrJI uhw1UcPCTix6M0UA8tHZao IHJlbWFpbmluZyBtdWNvc2 Fle2AuhQsbFKasYOGnQLpg CEDmCmT8x9PjnVDhrSHlsI BhbmQgdGhlIHZpYWJpbGl0 kYGmSzO8hMGcxrEvVGZ1lF 7wWF3yapdcuxZeJK7jh4Iz BuQlN4Htp3CpqKYiZIRalx 1pbmVkLiBUaGUgcGVyaWNv qM4zgNVxFWSbbN7nGTO2zV VvpTOzhCYnkCFrfOP7JTZo Gf4mSJVbyA9sf7hnaUCmoW akgPiein4nICXhHDXprivy rbffJoLjiLNhVyBoIR41FV KzLAxpRPycTID4TEJ3EIBy vWLco2qlpylzFFHjsRQve3 BhrEZ3bHBkIGPgC3Lgz91w GTOtRCAhtCXbcFX3VWPfkI 4gQTEtQTEwLlxwYXJccGFy UBXjG8Owy32hL30mQDjvmZ JuOSOwQsRQnc55tY1ppNWq HGVkH8Smc50xhVXgV4efZC BlbiBmYWNlLCByZXByZXNl pmFrkOk5XFniXXLoUVE6MQ Tcf2BbxMXmLJMuS7Ohl64c jTWiC1zhNWBrdiGrGXGxRM XdKIEyQOYrsvMivRz6WCnr EHPwIIZ4MBorZT9jOOJfjI RrlR0ohUejjhI8pBIlVYA9 mrrbB0HfUKTjMSVjNKZhbT Zhf6KxdNN3yZScNPRiaoTY HThdNgWtynDhYJ50TSNsub Dvm5ItqTiyirCbb9IrdIKp r2NtHZCvUYJ8NWgpIOEns9 hpbWFsIHRvIHRoZSBkaXN0 YL6tBPSeDPEaLQpyECYoSI WhERS2PYVowLLjq2WexIK2 tSSeNSDmU2Ejy04kWD6jTU 23X09oAEGzohNww2TvfBTr qx9xYLEmYKRnyWN3PU8eIR XuMYPhFXslPYWwPHl9VCTu UHNmg2ZcOAH1zvnyF0PaEF NjYXIgZGlzdGFsIHRvIGRp x8BuhwLoEAPmflRpOPTwLV OaXCRiobVukEy6TMfeLHCu VJm4EZBshQJcv6VsgSP2mK BqSKYnL0Cov46cCX2lBY06 H52zQXVgqtPvt2IhlVLaeP N2CBkonO2apMyxHOCyq3Hi bmRlZCBhcmVhXHBhciBBOT tqHW0nb2qayMPvcEiat5Ct N4PqFGCboBHpLDZqXRFxMJ HwhqLfzTn7DZlcFBRiSTIf JfLItd8mcxPoMRB0aU5oPM 9mIGludGVzdGluZSBhdHRh O6lmKVI7bfAgf0AffPVbVG ImvAQkU2QjUBmavbPcplKk GQFxxEKac5JyjCZ9wKCeYJ CsqlBWFCM3GKOaaJ8cr6aa aGCdsRalwQajiv8tDUUbHA uip0whAWcqQJEbiFEmZTBk pkXpcVyltU3eDtBzSrVjTX xwbGFpblxmMVxmczIwIFNw ZWNpbWVuIEIgaXMgcmVjZW u3OLVsXfTxn8yzuMStDTgg IXU7gLGxNCDsBVKuZYAeTD 82N7RwttJsBRsqLAhlbnBp CpGyAJJvv4tmlhqnFM0zrT GvMFtmRRzuNmbnCU5iPRWz ltGyt6MjKU4aZZUmHV4ll0 JmgQ4mdA0dYJWfgoH4dgWh FY68XAuxSC26LWxhMM11KE NtIGFuZCAyLjUgeCAxLjkg tOZbWjqvF44tPlXEy3WkQY MkukV0oaDbmmYwGbhwNSH7 APPzTEWbSKNwrQOpwF5bwf HzbuFbrAYjjLF6FBYuQI92 wSVylFxbEP2tEmElQMHdje QJMP4ALjusuCMzI0GeRHGa ijQ4CYouDTTpGNBvYMMdQH BzbWFsbGVyIGRvdWdobnV0 IGluIEIzLiBccGFyXHBhci TARNS2ETKaobSuzMjnNFMH UGFtRWFwC6Q4MENjgSxnSV RkPVQ7ckRqSIRpJ2DtGFUO GBYIW3AlIJUmNRhdRTPsEK ZzMTZcbGFuZzEwMzNcaGlj aFxmMVxkYmNoXGYxXGxvY2 peFeKlM1MnLQItRQOwA70k uQifwS2jQdNeZaSuLMueZC ItyMgkuDxcdF7hCcUlLrFs MFxwbGFpblxmMVxmczIwXH Bhcn0= Embedded Images (test code = 1662093616) [facility]04:Ana Ahn MD ? ? 04/06/2020 11:06 AMIntubationUrgency: emergent Difficult airway General Information and Staff Patient location during procedure: ORAnesthesiologist: Cynthia Herring, CARMENesident/NURSERY SUPERVISOR: Dana Sampson DOPerformed: anesthesiologist and resident/NURSERY SUPERVISOR Indications and Patient ConditionIndications for airway management: [...] from glidescope to advance tube into airway. [facility] 16:04:Ana Ahn MD ? ? 04/08/2020 ?5:11 AMIntubationUrgency: emergent Difficult airway General Information and Staff Patient location during procedure: ORAnesthesiologist: Cynthia Herring, Kathydent/NURSERY SUPERVISOR: Dana Sampson DOPerformed: anesthesiologist and resident/NURSERY SUPERVISOR Indications and Patient ConditionIndications for airway management: [...] glidescope to advance tube into airway. Additional VcthuzqiW7o on VL by CA1, multiple attempts by CA1 with ETT with stylet and bougie, unable to pass ETT through glottis. BVM between attempts. Glidescope stylet with ETT used by faculty under VL, attempt x 1 by faculty, g1v, atraumatic.[facility] [id number] 15:42:20 Large volume pneumoperitoneum. Continued gaseous distention and dilatation of the stomach and smallbowelfollowing total colectomy with ileoanal anastomosis may representpostoperative ileus. Findings regarding pneumoperitoneum were already communicated to [facility]. Preliminary Report Dictated by Resident: Bart [...] project over the midline in the lowerabdomen. [facility], Radiant Results Inft User - 04/06/2020 [...] small bowel and issimilar to prior radiographs. [place] project over the midline in the lowerabdomen.IMPRESSIONLarge volume pneumoperitoneum.Continued gaseous distention and dilatation of the stomach and small bowelfollowing total colectomy with ileoanal anastomosis may representpostoperative ileus.Findings regarding pneumoperitoneum were already communicated to [facility].Preliminary Report Dictated by Resident: Bart Klein reviewed this study and agree.Weston Damon MD., have reviewed this study andagree with theabove report. [facility]Type [facility] Screen - ONCE [id number] 15:18:48 Test Item Value Reference Range Interpretation Comments ABO & RH (test code O POSITIVE Performe d at [facility] = 20) Laboratory Serv [facility] [facility] s [id number] Free: [phone] A No. [id number] IAT (test code = Negative Performed a t [facility] 1185) Laboratory Serv [facility] [facility] s [id number] Free: [phone] A No. [id number] [facility] CHEST 1 [id number] 15:09:51 1. ?Interval development of a large [...] the midline and inferiorly beyondthe diaphragm and qzanc-bv-fhcx. Left diaphragm is elevated with interval development of large amount offree air noted under the diaphragms, better seen on concomitant abdominalx-ray. Lungs are clear without focal consolidation, pleural effusion orpneumothorax. The cardiomediastinal silhouette is stable. ?No acute osseousabnormalities. 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 Left diaphragm is elevated with interval development [...] Report Dictated by Resident: Tawny Mccauley, Jovanna Caecres MD., have reviewed this study and agree with theabovereport.[facility]Central [id number] 14:52:37Ana Syed MD ? ? 04/06/2020 ?9:53 AM Central Line Date/Time: 04/06/2020 9:40 AMPerformed by: Cynthia Herring MD Central Line Placement: ?Ultrasound-Guided: ultrasound guided ? ?Patient Location: ?OR ?Indication: central venous access ?Staff: ?Supervising Anesthesiologist: ?Cynthia Herring MD ?Anesthesiologist: ?HunsiCynthia tse MDSterility and Timeout Preparation: provider hand hygiene [...] tolerated procedure well with no complications ? [facility] [id number] 14:52:Ana Schulz MD ? ? 04/06/2020 ?9:53 [...] tolerated procedure well with no complications ? [facility] [id number] 14:51:Ana Blair MD ? ? 04/06/2020 ?9:52 [...] complications and all wires accounted for _ [facility] [id number] 14:51:Ana Blair MD ? ? 04/06/2020 ?9:52 [...] and all wires accounted for _ [facility] WITH [id number] 13:22:00 Test Item Value Reference Range Interpretation Comments WBC (test code = See_Comment LL [Automated 3990-2) message] The system which generated this result [...] RDW-SD (test code = 47.8 fL 38.5-51.6 53794-1) RDW-CV (test code = 14.6 % 12.1-15.4 788-0) PLT (test code = See_Comment [Automated 777-3) message] The system which generated this result transmitted reference range : 150 - 328 10*3/?L. The reference range was not used to interpret this result as normal/abnormal . MPV (test code = 12.1 fL 9.8-13 02125-9) NRBC/100 WBC (test See_Comment [Automat ed code = 4285524309) message] The system which generated this result transmitted reference range : 0.0 - 10.0 /100 WBCs. The reference range was not used to interpret this result as normal/abnormal . NRBC x10^3 (test code <0.01 See_Comment [Auto mated = 6110542550) message] The system which generated this result transmitted reference range : 10*3/?L. The reference range was not used to interpret this result as normal/abnormal . GRAN MAT (NEUT) % 71.6 % (test code = 770-8) IMM GRAN % (test code 0.90 % = 5349660904) LYMPH % (test code = 18.3 % 736-9) MONO % (test code = 9.2 % 5905-5) EOS % (test code = 0.0 % 713-8) BASO % (test code = 0.0 % 706-2) GRAN MAT x10^3(ANC) 0.78 10*3/uL 1.99-6.95 L (test code = 5601867678) IMM GRAN x10^3 (test <0.03 0-0.06 code = 9608280950) LYMPH x10^3 (test 0.20 10*3/uL 1.09-3.23 L code = 731-0) MONO x10^3 (test code 0.10 10*3/uL 0.36-1.02 L = 742-7) EOS x10^3 (test code <0.03 0.06-0.53 L = 711-2) BASO x10^3 (test code <0.03 0.01-0.09 = 704-7) GOLDEN CELLS (test code 2+ See_Comment A [Auto mated = 7236-0) message] The system which generated this result transmitted reference range : (none). The reference range was not used to interpret this result as normal/abnormal . BANDS (test code = MARKED INCREASED A 5819953830) Lab Interpretation Abnormal (test code = 72974-4) [facility] METABOLIC PANEL (NA, K, CL, CO2, GLUCOSE, BUN, CREATININE, CA)2020-04-06 12:38:00 Test Item Value Reference Range Interpretation Comments NA (test code = 134 mmol/L 135-145 L 7291829327) K (test code = 4.5 mmol/L 3.5-5 2845926642) CL (test code = 105 mmol/L 98-108 8884074319) CO2 TOTAL (test code = 18 mmol/L 23-31 L 4338436021) AGAP (test code = 2-16 3582273922) BUN (test code = 30 mg/dL 7-23 H 0951027184) GLUCOSE (test code = 117 mg/dL 70-110 H 8700121358) CREATININE (test code = 1.95 mg/dL 0.6-1.25 H 5788092590) CALCIUM (test code = 8.6 mg/dL 8.6-10.6 9369815293) eGFR Calculation mL/min/1.73m2 (Non-) (test code = 7742939557) eGFR Calculation mL/min/1.73m2 () (test code = 3963766507) GILBERTO (test code = GILBERTO) Association of [...] tests). Lab Interpretation Abnormal (test code = 08986-4) [facility]2020-08-14 12:38:00 Test Item Value Reference Range Interpretation Comments MAGNESIUM (test code = 6923644605) 2.3 mg/dL 1.7-2.4 Lab Interpretation (test code = Normal 54202-5) [facility] [id number] 23:28:32 Prominent gaseous distention of small bowel [...] pelvis. Note: Left hemidiaphragm isnot fully within egqxf-hj-rifh. FINDINGS: Status post colectomy. Massive gaseous distention [...] and pelvis.Note: Left hemidiaphragm isnot fully within kesra-qm-ouxr.FINDINGS:Status post colectomy.Massive gaseous distention of the stomach [...] this study and agree with theabove report. [facility] [id number] 23:22:45 Esophogastric tube tip projects over the [...] Bilateralhemidiaphragms and upper abdomen are not within fyred-db-hffe. FINDINGS: The tipof the esophogastric tube projects [...] Bilateralhemidiaphragms and upper abdomen are not within lpacx-oz-btnb.FINDINGS:The tip of the esophogastric tube projects over [...] reviewed this study and agree with theabove report.[facility] METABOLIC PANEL (NA, K, CL, CO2, GLUCOSE, BUN, CREATININE, CA)2020-04-05 11:08:00 Test Item Value Reference Range Interpretation Comments NA (test code = 137 mmol/L 135-145 5532268388) K (test code = 4.4 mmol/L 3.5-5 4042617336) CL (test code = 104 mmol/L 98-108 5743123481) CO2 TOTAL (test code = 24 mmol/L 23-31 0116356023) AGAP (test code = 2-16 0258043942) BUN (test code = 10 mg/dL 7-23 6181848520) GLUCOSE (test code = 104 mg/dL 70-110 5897554386) CREATININE (test code 1.18 mg/dL 0.6-1.25 = 6753300030) CALCIUM (test code = 8.7 mg/dL 8.6-10.6 7336297418) eGFR Calculation mL/min/1.73m2 (Non-) (test code = 9335413879) eGFR Calculation mL/min/1.73m2 () (test code = 1395596083) GILBERTO (test code = GILBERTO) Association of [...] or urine or abnormalities in imaging tests). [facility]2020-08-13 11:08:00 Test Item Value Reference Range Interpretation Comments MAGNESIUM (test code = 2687439706) 2.3 mg/dL 1.7-2.4 Lab Interpretation (test code = Normal 34109-5) [facility] WITH [id number] 10:32:00 Test Item Value Reference Range Interpretation [...] RDW-SD (test code = 47.8 fL 38.5-51.6 89809-0) RDW-CV (test code = 14.6 % 12.1-15.4 788-0) PLT (test code = See_Comment [Automated 777-3) message] The sy stem which generated this result transmitted reference range : 150 - 328 10*3/ ?L. The reference r meredith was not used to interpret this result as normal/abnormal . MPV (test code = 11.6 fL 9.8-13 45195-9) NRBC/100 WBC (test See_Comment [Automat ed code = 3806091931) message] The system which generated this result transmitted reference range : 0.0 - 10.0 /100 WBCs. The refer ence range was not u sed to interpret th is result as normal/abnormal . NRBC x10^3 (test code <0.01 See_Comment [Auto mated = 4410243444) message] The s ystem which generated this result transmitted reference range : 10*3/?L. The reference range was not used to interpret this result as normal/abnormal . GRAN MAT (NEUT) % 82.4 % (test code = 770-8) IMM GRAN % (test code 0.30 % = 9891664290) LYMPH % (test code = 12.4 % 736-9) MONO % (test code = 4.5 % 5905-5) EOS % (test code = 0.2 % 713-8) BASO % (test code = 0.2 % 706-2) GRAN MAT x10^3(ANC) 5.12 10*3/uL 1.99-6.95 (test code = 1059500226) IMM GRAN x10^3 (test <0.03 0-0.06 code = 6294576273) LYMPH x10^3 (test code 0.77 10*3/uL 1.09-3.23 L = 731-0) MONO x10^3 (test code 0.28 10*3/uL 0.36-1.02 L = 742-7) EOS x10^3 (test code = <0.03 0.06-0.53 L 711-2) BASO x10^3 (test code <0.03 0.01-0.09 = 704-7) Lab Interpretation Abnormal (test code = 78370-1) [facility] METABOLIC PANEL (NA, K, CL, CO2, GLUCOSE, BUN, CREATININE, CA)2020-04-04 11:02:00 Test Item Value Reference Range Interpretation Comments NA (test code = 135 mmol/L 135-145 7055897931) K (test code = 4.4 mmol/L 3.5-5 Slight 8918740505) hemolysis CL (test code = 103 mmol/L 98-108 5009603503) CO2 TOTAL (test code 26 mmol/L 23-31 = 8796274341) AGAP (test code = 2-16 1427579472) BUN (test code = 7 mg/dL 7-23 Slight 3329160876) hemolysis GLUCOSE (test code = 119 mg/dL 70-110 H 5758893541) CREATININE (test code 0.95 mg/dL 0.6-1.25 = 8809716268) CALCIUM (test code = 8.3 mg/dL 8.6-10.6 L 5034063611) eGFR Calculation mL/min/1.73m2 (Non-) (test code = 3464733822) eGFR Calculation mL/min/1.73m2 () (test code = 3561950001) GILBERTO (test code = GILBERTO) Association of [...] tests). Lab Interpretation Abnormal (test code = 83249-9) [facility] Test Item Value Reference Range Interpretation Comments MAGNESIUM (test code = 1174574635) 1.7 mg/dL 1.7-2.4 Lab Interpretation (test code = Normal 18126-4) [facility] WITH [id number] 10:31:00 Test Item Value Reference Range Interpretation Comments WBC (test code = See_Comment [Automated 6890-2) message] The sy stem which generated this result transmitted reference range : 4.20 - 10.70 10*3/?L. The reference range was not used to interpret this result as normal/abnormal . RBC (test code = See_Comment L [Automated 679-8) message] The sy stem which generated this [...] RDW-SD (test code = 46.5 fL 38.5-51.6 15381-9) RDW-CV (test code = 14.3 % 12.1-15.4 788-0) PLT (test code = See_Comment L [Automated 777-3) message] The sy stem which generated this result transmitted reference range : 150 - 328 10*3/ ?L. The reference r meredith was not used to interpret this result as normal/abnormal . MPV (test code = 11.2 fL 9.8-13 61187-0) NRBC/100 WBC (test See_Comment [Automat ed code = 1474196333) message] The system which generated this result transmitted reference range : 0.0 - 10.0 /100 WBCs. The refer ence range was not u sed to interpret th is result as normal/abnormal . NRBC x10^3 (test code <0.01 See_Comment [Auto mated = 1861751802) message] The s ystem which generated this result transmitted reference range : 10*3/?L. The reference range was not used to interpret this result as normal/abnormal . GRAN MAT (NEUT) % 76.7 % (test code = 770-8) IMM GRAN % (test code 0.30 % = 0301882810) LYMPH % (test code = 16.4 % 736-9) MONO % (test code = 6.2 % 5905-5) EOS % (test code = 0.2 % 713-8) BASO % (test code = 0.2 % 706-2) GRAN MAT x10^3(ANC) 5.12 10*3/uL 1.99-6.95 (test code = 7685083468) IMM GRAN x10^3 (test <0.03 0-0.06 code = 8463051098) LYMPH x10^3 (test code 1.09 10*3/uL 1.09-3.23 = 731-0) MONO x10^3 (test code 0.41 10*3/uL 0.36-1.02 = 742-7) EOS x10^3 (test code = <0.03 0.06-0.53 L 711-2) BASO x10^3 (test code <0.03 0.01-0.09 = 704-7) Lab Interpretation Abnormal (test code = 88907-6) [facility] WITH [id number] 11:04:00 Test Item Value Reference Range Interpretation [...] RDW-SD (test code = 45.6 fL 38.5-51.6 48454-3) RDW-CV (test code = 14.0 % 12.1-15.4 788-0) PLT (test code = See_Comment L [Automated 777-3) message] The sy stem which generated this result transmitted reference range : 150 - 328 10*3/ ?L. The reference r meredith was not used to interpret this result as normal/abnormal . MPV (test code = 11.2 fL 9.8-13 17807-1) NRBC/100 WBC (test See_Comment [Automat ed code = 7305841013) message] The system which generated this result transmitted reference range : 0.0 - 10.0 /100 WBCs. The refer ence range was not u sed to interpret th is result as normal/abnormal . NRBC x10^3 (test code <0.01 See_Comment [Auto mated = 5245806876) message] The s ystem which generated this result transmitted reference range : 10*3/?L. The reference range was not used to interpret this result as normal/abnormal . GRAN MAT (NEUT) % 52.7 % (test code = 770-8) IMM GRAN % (test code 0.30 % = 4525140496) LYMPH % (test code = 34.6 % 736-9) MONO % (test code = 9.6 % 5905-5) EOS % (test code = 2.2 % 713-8) BASO % (test code = 0.6 % 706-2) GRAN MAT x10^3(ANC) 1.88 10*3/uL 1.99-6.95 L (test code = 2968563435) IMM GRAN x10^3 (test <0.03 0-0.06 code = 5655236672) LYMPH x10^3 (test code 1.23 10*3/uL 1.09-3.23 = 731-0) MONO x10^3 (test code 0.34 10*3/uL 0.36-1.02 L = 742-7) EOS x10^3 (test code = 0.08 10*3/uL 0.06-0.53 711-2) BASO x10^3 (test code <0.03 0.01-0.09 = 704-7) REACT LYMPHS (test Rare code = 0719278270) Lab Interpretation Abnormal (test code = 53550-4) [facility] METABOLIC PANEL (NA, K, CL, CO2, GLUCOSE, BUN, CREATININE, CA)2020-04-03 10:54:00 Test Item Value Reference Range Interpretation Comments NA (test code = 140 mmol/L 135-145 4930983143) K (test code = 3.9 mmol/L 3.5-5 9910827854) CL (test code = 107 mmol/L 98-108 8846357905) CO2 TOTAL (test code = 28 mmol/L 23-31 9151746862) AGAP (test code = 2-16 6727058345) BUN (test code = 4 mg/dL 7-23 L 4326782714) GLUCOSE (test code = 88 mg/dL 70-110 5390378522) CREATININE (test code = 0.96 mg/dL 0.6-1.25 3096734497) CALCIUM (test code = 8.6 mg/dL 8.6-10.6 4355315052) eGFR Calculation mL/min/1.73m2 (Non-) (test code = 0509678625) eGFR Calculation mL/min/1.73m2 () (test code = 7559603186) GILBERTO (test code = GILBERTO) Association of [...] tests). Lab Interpretation Abnormal (test code = 18821-6) [facility]:00 Test Item Value Reference Range Interpretation Comments MAGNESIUM (test code = 0692655445) 2.0 mg/dL 1.7-2.4 Lab Interpretation (test code = Normal 87505-1) [facility] [id number] 23:40:25 Test Item Value Reference Range Interpretation Comments ABO & RH (test code O POSITIVE Performe d at [facility] = 20) Laboratory Serv [facility] [facility] [id number] Free: [phone] A No. [id number] IAT (test code = Negative Performed a t [facility] 1185) Laboratory Serv [facility] [facility] [place] [address]Wigx Free: [phone] A No. [id number] [facility] [facility] [id number] 11:21:00 Test Item Value Reference Range Interpretation [...] RDW-SD (test code = 45.8 fL 38.5-51.6 97595-3) RDW-CV (test code = 14.2 % 12.1-15.4 788-0) PLT (test code = See_Comment L [Automated 777-3) message] The sy stem which generated this result transmitted reference range : 150 - 328 10*3/ ?L. The reference r meredith was not used to interpret this result as normal/abnormal . MPV (test code = 10.6 fL 9.8-13 33078-2) NRBC/100 WBC (test See_Comment [Automat ed code = 2456795803) message] The system which generated this result transmitted reference range : 0.0 - 10.0 /100 WBCs. The refer ence range was not u sed to interpret th is result as normal/abnormal . NRBC x10^3 (test code <0.01 See_Comment [Auto mated = 7295839010) message] The s ystem which generated this result transmitted reference range : 10*3/?L. The reference range was not used to interpret this result as normal/abnormal . GRAN MAT (NEUT) % 46.4 % (test code = 770-8) IMM GRAN % (test code 0.30 % = 3397129579) LYMPH % (test code = 38.8 % 736-9) MONO % (test code = 10.5 % 5905-5) EOS % (test code = 3.3 % 713-8) BASO % (test code = 0.7 % 706-2) GRAN MAT x10^3(ANC) 1.41 10*3/uL 1.99-6.95 L (test code = 2107337394) IMM GRAN x10^3 (test <0.03 0-0.06 code = 0886055862) LYMPH x10^3 (test code 1.18 10*3/uL 1.09-3.23 = 731-0) MONO x10^3 (test code 0.32 10*3/uL 0.36-1.02 L = 742-7) EOS x10^3 (test code = 0.10 10*3/uL 0.06-0.53 711-2) BASO x10^3 (test code <0.03 0.01-0.09 = 704-7) HYPERSEG NEUTS (test Present See_Comment A [Autom ated code = 765-8) message] The [employer] which generated this result transmitted reference range : (none). The reference range was not used to interpret this result as normal/abnormal . Lab Interpretation Abnormal (test code = 73643-1) [facility] METABOLIC PANEL (NA, K, CL, CO2, GLUCOSE, BUN, CREATININE, CA)2020-04-02 11:05:00 Test Item Value Reference Range Interpretation Comments NA (test code = 139 mmol/L 135-145 4801098477) K (test code = 4.0 mmol/L 3.5-5 5424409626) CL (test code = 108 mmol/L 98-108 0701723904) CO2 TOTAL (test code = 25 mmol/L 23-31 4459461515) AGAP (test code = 2-16 5065881261) BUN (test code = 6 mg/dL 7-23 L 7350619288) GLUCOSE (test code = 99 mg/dL 70-110 0854463459) CREATININE (test code = 0.92 mg/dL 0.6-1.25 5300949073) CALCIUM (test code = 8.3 mg/dL 8.6-10.6 L 6759765215) eGFR Calculation mL/min/1.73m2 (Non-) (test code = 9863064553) eGFR Calculation mL/min/1.73m2 () (test code = 9604419085) GILBERTO (test code = GILBERTO) Association of [...] tests). Lab Interpretation Abnormal (test code = 40730-2) [facility] 11[facility]05:00 Test Item Value Reference Range Interpretation Comments MAGNESIUM (test code = 7932892198) 2.0 mg/dL 1.7-2.4 Lab Interpretation (test code = Normal 99558-4) [facility] (ID NOW RAPID TESTING)2020-04-02 00:43:00 Test Item Value Reference Range Interpretation Comments SARS-CoV-2 Rapid ID NOW Not Detected Not Detected (test code = 29681-4) GILBERTO (test code = GILBERTO) ID NOW COVID-19 Assay is an isothermal nucleic acid amplification test intended for the qualitative detection of nucleic acid from SARS-CoV-2 viral RNA in nasopharyngeal (UI LEAD DEVELOPER) specimens. It is used under Emergency Use [...] indicated. Lab Interpretation Normal (test code = 84263-1) [facility] Hospital[facility]ysis2020-[facility] 11:39:00 Test Item Value Reference Range Interpretation Comments APPEARANCE (test code = Hazy Clear A 5317992764) COLOR (test code = Yellow Yellow 7683993432) PH (test code = 4.8-8.0 8491962095) SP GRAVITY (test code = 1.003-1.030 H 9336244347) GLU U QUAL (test code = Normal Normal 9437498523) BLOOD (test code = Negative Negative 9756848573) KETONES (test code = 5 mg/dL Negative A 2093822469) PROTEIN (test code = Negative Negative 2887-8) UROBILIN (test code = 2.0 mg/dL Normal A 2453106211) BILIRUBIN (test code = Negative Negative 7009584829) NITRITE (test code = Negative Negative 0158636914) LEUK ROGER (test code = Negative Negative 8941862167) RBC/HPF (test code = See_Comment [Autom ated message] 6446056639) The system [employer] generated this result transmit dain reference range : 0 - 3 HPF. The refe rence range was not u sed to interpret th is result as normal/abnormal . WBC/HPF (test code = See_Comment [Autom ated message] 0054925101) The system [employer] generated this result transmit dain reference range : 0 - 5 HPF. The refe rence range was not u sed to interpret th is result as normal/abnormal . BACTERIA (test code = Negative Negative 6211044257) CA OXALATE (test code = See_Comment H [Au tomated message] 2463581709) The system [employer] generated this result transmit dain reference range : <=1 HPF. The refere nce range was not u sed to interpret th is result as normal/abnormal . Lab Interpretation (test Abnormal code = 32186-2) [facility] PEL[facility] W [id number] 00:38:37 1. ?Massive air distention of the [...] distal small bowel also appears grossly distended. Thereis evidence ofsome mesenteric whirling in the central and right abdomen. No evidence ofpneumatosis, free air, or focal loculated fluid collections are seen. Thereis no evidence of pneumatosis. No pathologically enlarged lymph nodes arepresent. The lung bases remain clear. There are no suspicious focal osseouslesions.IMPRESSION1. Massive air distention of the colon and proximal small bowel. This isslightly increased since the previous exam. Once again no definite point oftransition is identified although there is some mesenteric swirling seen inthe central and right abdomen. The findings could stillrepresent profoundcolonic ileus, however some type of obstruction cannot entirely be ruledout given the degree of progressive distention. Surgical consult should beconsidered.2. No evidence of free air, pneumatosis, or focal loculated drainable fluidcollection.RL: 460END OF REPORTElectronically signedby Milo Alarcon MD at 03/30/2020 7:38 PMUnTexas [facility] Met[facility] (NA, K, CL, CO2, GLUCOSE, BUN, CREATININE, CA)2020-03-30 23:45:00 Test Item Value Reference Range Interpretation Comments NA (test code = 140 mmol/L 135-145 2418364026) K (test code = 4.3 mmol/L 3.5-5 0435054477) CL (test code = 101 mmol/L 98-108 4629453063) CO2 TOTAL (test code = 28 mmol/L 23-31 6408178892) AGAP (test code = 2-16 4563217534) BUN (test code = 24 mg/dL 7-23 H 6938623990) GLUCOSE (test code = 90 mg/dL 70-110 7036176028) CREATININE (test code = 1.29 mg/dL 0.6-1.25 H 6778644164) CALCIUM (test code = 9.4 mg/dL 8.6-10.6 6050856309) eGFR Calculation mL/min/1.73m2 (Non-) (test code = 1227600798) eGFR Calculation mL/min/1.73m2 () (test code = 5367913489) GILBERTO (test code = GILBERTO) Association of [...] tests). Lab Interpretation Abnormal (test code = 15382-0) [facility] 1 Tlce1608-12-18 23:00:46 No evidence for an acute cardiopulmonary [...] SINGLE VIEWCLINICAL HISTORY: Abdominal painORDERING PHYSICIAN: [facility]: Frontal view of chestCOMPARISON: Chest and abdominal [...] on the March 02, 2020 exam.RL: [id number] [facility] [id number] 22:39:00 Test Item Value Reference Range Interpretation Comments TROPONIN I (test 0.008 ng/mL See_Comment [Automated code = 6010917214) message] The system which generated this result [...] ? Lab Interpretation Normal (test code = 46740-2) [facility] HospitalN-TERMINAL GIL-MIS4707-21-07 22:39:00 Test Item Value Reference Range Interpretation Comments NT-proBNP (test code 42 pg/mL See_Comment [Autom ated = 4196033209) message] The system which generated this result transmitted reference range : <=125. The reference range was not used to interpret this result as normal/abnormal . GILBERTO (test code = GILBERTO) Biotin has been reported to cause a negative bias, interpret results relative to patient's use of biotin. Lab Interpretation Normal (test code = 39084-9) [facility] HospitalHepatic Function Panel (ALB, T.PRO, BILI T, BU/BC, ALT, AST, ALK PHOS)2020-03-30 22:27:00 Test Item Value Reference Range Interpretation Comments TOTAL BILI (test code = 1224801345) 0.5 mg/dL 0.1-1.1 BILI UNCON (test code = 0916971252) 0.3 mg/dL 0.1-1.1 BILI CONJ (test code = 4781923570) 0.0 mg/dL 0-0.3 T PROTEIN (test code = 1893457662) 6.7 g/dL 6.3-8.2 ALBUMIN (test code = 9112256139) 4.5 g/dL 3.5-5 ALK PHOS (test code = 7325596767) 57 U/L 34-122 ALTv (test code = 1742-6) 31 U/L 5-50 AST(SGOT) (test code = 8418200927) 38 U/L 13-40 Lab Interpretation (test code = Normal 98720-2) [facility] HospitalLipase Sylah0105-76-51 22:27:00 Test Item Value Reference Range Interpretation Comments LIPASE (test code = 5979391613) 62 U/L 0-220 Lab Interpretation (test code = Normal 59303-1) [facility] HospitalaPTT2020-08-07 22:25:00 Test Item Value Reference Range Interpretation Comments APTT Patient (test code = See_Comment [ Automated message] 3173-2) The system [employer] generated this result transmitted ref erence range: 26 - 36 Seconds. The re ference range was not u sed to interpret this result as normal/abnor mal. Lab Interpretation (test Normal code = 79123-5) [facility] HospitalProthrombin Time (PT) / [id number] 22:25:00 Test Item Value Reference Range Interpretation [...] tions. Lab Interpretation (test Normal code = 38263-9) [facility] HospitalCBC with Koqbendktfek7022-50-62 22:17:00 Test Item Value Reference Range Interpretation Comments WBC (test code = See_Comment [Automated 2990-2) message] The sy stem which generated this [...] RDW-SD (test code = 46.9 fL 38.5-51.6 79402-0) RDW-CV (test code = 14.3 % 12.1-15.4 788-0) PLT (test code = See_Comment [Automated 777-3) message] The sy stem which generated this result transmitted reference range : 150 - 328 10*3/ ?L. The reference r meredith was not used to interpret this result as normal/abnormal . MPV (test code = 10.7 fL 9.8-13 44814-5) NRBC/100 WBC (test See_Comment [Automat ed code = 6839827983) message] The system which generated this result transmitted reference range : 0.0 - 10.0 /100 WBCs. The refer ence range was not u sed to interpret th is result as normal/abnormal . NRBC x10^3 (test code <0.01 See_Comment [Auto mated = 9708185036) message] The s ystem which generated this result transmitted reference range : 10*3/?L. The reference range was not used to interpret this result as normal/abnormal . GRAN MAT (NEUT) % 51.7 % (test code = 770-8) IMM GRAN % (test code 0.40 % = 0919911244) LYMPH % (test code = 32.8 % 736-9) MONO % (test code = 12.4 % 5905-5) EOS % (test code = 2.1 % 713-8) BASO % (test code = 0.6 % 706-2) GRAN MAT x10^3(ANC) 2.76 10*3/uL 1.99-6.95 (test code = 1217844017) IMM GRAN x10^3 (test <0.03 0-0.06 code = 4402365591) LYMPH x10^3 (test code 1.75 10*3/uL 1.09-3.23 = 731-0) MONO x10^3 (test code 0.66 10*3/uL 0.36-1.02 = 742-7) EOS x10^3 (test code = 0.11 10*3/uL 0.06-0.53 711-2) BASO x10^3 (test code 0.03 10*3/uL 0.01-0.09 = 704-7) Lab Interpretation Abnormal (test code = 44570-5) [facility] with Ulfelwhgtpmu6007-08-63 10:26:00 Test Item Value Reference Range Interpretation [...] RDW-SD (test code = 46.3 fL 38.5-51.6 34845-5) RDW-CV (test code = 14.2 % 12.1-15.4 788-0) PLT (test code = See_Comment L [Automated 777-3) message] The sy stem which generated this result transmitted reference range : 150 - 328 10*3/ ?L. The reference r meredith was not used to interpret this result as normal/abnormal . MPV (test code = 10.6 fL 9.8-13 27343-3) NRBC/100 WBC (test See_Comment [Automat ed code = 2557902103) message] The system which generated this result transmitted reference range : 0.0 - 10.0 /100 WBCs. The refer ence range was not u sed to interpret th is result as normal/abnormal . NRBC x10^3 (test code <0.01 See_Comment [Auto mated = 8977605090) message] The s ystem which generated this result transmitted reference range : 10*3/?L. The reference range was not used to interpret this result as normal/abnormal . GRAN MAT (NEUT) % 51.3 % (test code = 770-8) IMM GRAN % (test code 0.30 % = 4099403496) LYMPH % (test code = 32.2 % 736-9) MONO % (test code = 12.7 % 5905-5) EOS % (test code = 3.0 % 713-8) BASO % (test code = 0.5 % 706-2) GRAN MAT x10^3(ANC) 1.89 10*3/uL 1.99-6.95 L (test code = 5691052768) IMM GRAN x10^3 (test <0.03 0-0.06 code = 7814441993) LYMPH x10^3 (test code 1.19 10*3/uL 1.09-3.23 = 731-0) MONO x10^3 (test code 0.47 10*3/uL 0.36-1.02 = 742-7) EOS x10^3 (test code = 0.11 10*3/uL 0.06-0.53 711-2) BASO x10^3 (test code <0.03 0.01-0.09 = 704-7) Lab Interpretation Abnormal (test code = 10440-4) [facility] HospitalMagnesium Gvfmt0851-78-56 10:17:00 Test Item Value Reference Range Interpretation Comments MAGNESIUM (test code = 8025145011) 2.0 mg/dL 1.7-2.4 Lab Interpretation (test code = Normal 09119-0) [facility] Metabolic Panel (NA, K, CL, CO2, GLUCOSE, BUN, CREATININE, CA)2020-03-26 10:17:00 Test Item Value Reference Range Interpretation Comments NA (test code = 136 mmol/L 135-145 3983015001) K (test code = 4.6 mmol/L 3.5-5 Slight 6682444985) hemolysis CL (test code = 109 mmol/L 98-108 H 7066381831) CO2 TOTAL (test code 26 mmol/L 23-31 = 2928691246) AGAP (test code = 2-16 L 5045214625) BUN (test code = 22 mg/dL 7-23 Slight 6033688566) hemolysis GLUCOSE (test code = 82 mg/dL 70-110 2966796934) CREATININE (test code 0.88 mg/dL 0.6-1.25 = 1044966762) CALCIUM (test code = 8.1 mg/dL 8.6-10.6 L 3071979394) eGFR Calculation mL/min/1.73m2 (Non-) (test code = 7310038262) eGFR Calculation mL/min/1.73m2 () (test code = 2867243707) GILBERTO (test code = GILBERTO) Association of [...] tests). Lab Interpretation Abnormal (test code = 03816-3) [facility] HospitalLactic Acid Whole Rrhcc3040-25-58 04:22:00 Test Item Value Reference Range Interpretation Comments LACTIC ACID (test code = 1.52 mmol/L 6494008793) [facility] HospitalPhosphorus Atrgn3922-82-92 03:37:00 Test Item Value Reference Range Interpretation Comments PHOSPHORUS (test code = 5424218186) 4.6 mg/dL 2.5-5 Lab Interpretation (test code = Normal 54687-1) [facility]UM2020-08-03 03:37:00 Test Item Value Reference Range Interpretation Comments MAGNESIUM (test code = 9621253028) 2.3 mg/dL 1.7-2.4 Lab Interpretation (test code = Normal 97551-0) [facility]COVID[facility] (ID NOW RAPID TESTING)2020-03-26 02:24:00 Test Item Value Reference Range Interpretation Comments SARS-CoV-2 Rapid ID NOW Not Detected Not Detected (test code = 65354-3) GILBERTO (test code = GILBERTO) ID NOW COVID-19 Assay is an isothermal nucleic acid amplification test intended for the qualitative detection of nucleic acid from SARS-CoV-2 viral RNA in nasopharyngeal (UI LEAD DEVELOPER) specimens. It is used under Emergency Use [...] indicated. Lab Interpretation Normal (test code = 04399-9) [facility] HospitalCT [facility]EN PELVIS W [id number] 01:33:06 Redemonstration of severe dilatation of the [...] No focal bowel inflammation or wall thickening.. [facility] Metabolic Panel (NA, K, CL, CO2, GLUCOSE, BUN, CREATININE, CA)2020-03-26 00:57:00 Test Item Value Reference Range Interpretation Comments NA (test code = 139 mmol/L 135-145 0457438928) K (test code = 4.4 mmol/L 3.5-5 5383954970) CL (test code = 105 mmol/L 98-108 1809182080) CO2 TOTAL (test code = 29 mmol/L 23-31 0054844563) AGAP (test code = 2-16 1092443199) BUN (test code = 28 mg/dL 7-23 H 5128515756) GLUCOSE (test code = 84 mg/dL 70-110 5068804057) CREATININE (test code = 1.19 mg/dL 0.6-1.25 4015809157) CALCIUM (test code = 8.9 mg/dL 8.6-10.6 1131722028) eGFR Calculation mL/min/1.73m2 (Non-) (test code = 6491911236) eGFR Calculation mL/min/1.73m2 () (test code = 0750727164) GILBERTO (test code = GILBERTO) Association of [...] tests). Lab Interpretation Abnormal (test code = 76748-3) [facility] HospitalHep[facility] Function Panel (ALB, T.PRO, BILI T, BU/BC, ALT, AST, ALK PHOS)2020-03-26 00:57:00 Test Item Value Reference Range Interpretation Comments TOTAL BILI (test code = 4718425854) 0.2 mg/dL 0.1-1.1 BILI UNCON (test code = 4234244373) 0.0 mg/dL 0.1-1.1 L BILI CONJ (test code = 5281767279) 0.0 mg/dL 0-0.3 T PROTEIN (test code = 5467501693) 6.2 g/dL 6.3-8.2 L ALBUMIN (test code = 0392150724) 4.1 g/dL 3.5-5 ALK PHOS (test code = 1667483131) 56 U/L 34-122 ALTv (test code = 1742-6) 24 U/L 5-50 AST(SGOT) (test code = 9463584105) 28 U/L 13-40 Lab Interpretation (test code = Abnormal 43977-9) [facility] HospitalCBC with Vzitibqiqeuz2026-89-38 00:47:00 Test Item Value Reference Range Interpretation Comments WBC (test code = See_Comment [Automated 2669-2) message] The sy stem which generated this result transmitted reference range : 4.20 - 10.70 10*3/?L. The reference range was not used to interpret this result as normal/abnormal . RBC (test code = See_Comment L [Automated 780-8) message] The sy stem which generated this [...] RDW-SD (test code = 45.9 fL 38.5-51.6 61988-7) RDW-CV (test code = 14.0 % 12.1-15.4 788-0) PLT (test code = See_Comment [Automated 777-3) message] The sy stem which generated this result transmitted reference range : 150 - 328 10*3/ ?L. The reference r meredith was not used to interpret this result as normal/abnormal . MPV (test code = 10.9 fL 9.8-13 96797-0) NRBC/100 WBC (test See_Comment [Automat ed code = 5524179041) message] The system which generated this result transmitted reference range : 0.0 - 10.0 /100 WBCs. The refer ence range was not u sed to interpret th is result as normal/abnormal . NRBC x10^3 (test code <0.01 See_Comment [Auto mated = 3327257062) message] The s ystem which generated this result transmitted reference range : 10*3/?L. The reference range was not used to interpret this result as normal/abnormal . GRAN MAT (NEUT) % 49.8 % (test code = 770-8) IMM GRAN % (test code 0.20 % = 1533661713) LYMPH % (test code = 32.0 % 736-9) MONO % (test code = 14.3 % 5905-5) EOS % (test code = 3.0 % 713-8) BASO % (test code = 0.7 % 706-2) GRAN MAT x10^3(ANC) 2.29 10*3/uL 1.99-6.95 (test code = 7904049439) IMM GRAN x10^3 (test <0.03 0-0.06 code = 5126602541) LYMPH x10^3 (test code 1.47 10*3/uL 1.09-3.23 = 731-0) MONO x10^3 (test code 0.66 10*3/uL 0.36-1.02 = 742-7) EOS x10^3 (test code = 0.14 10*3/uL 0.06-0.53 711-2) BASO x10^3 (test code 0.03 10*3/uL 0.01-0.09 = 704-7) Lab Interpretation Abnormal (test code = 49308-6) [facility] HospitalMagnesium Skqbs1404-67-22 05:23:00 Test Item Value Reference Range Interpretation Comments MAGNESIUM (test code = 1412102879) 2.1 mg/dL 1.7-2.4 Lab Interpretation (test code = Normal 51169-5) [facility]COVID[facility] (ID NOW RAPID TESTING)2020-03-03 04:45:00 Test Item Value Reference Range Interpretation Comments SARS-CoV-2 Rapid ID NOW Not Detected Not Detected (test code = 20306-3) GILBERTO (test code = GILBERTO) ID NOW COVID-19 Assay is an isothermal nucleic acid amplification test intended for the qualitative detection of nucleic acid from SARS-CoV-2 viral RNA in nasopharyngeal (UI LEAD DEVELOPER) specimens. It is used under Emergency Use [...] indicated. Lab Interpretation Normal (test code = 21017-9) [facility] HospitalProthrombin Time / [id number] 04:40:00 Test Item Value Reference Range Interpretation Comments PROTIME PATIENT (test See_Comment [Auto mated message] code = 5964-2) The system [facility] generated this result transmitted ref erence range: 10.1 - 1 2.6 Seconds. The re ference range was not u sed to interpret this result as normal/abnor mal. INR (test code = 6301-6) Nor mal INR <1.1; Warfarin Therap eutic range 2.0 to 3. 0 or 2.5 to 3.5, dep ending upon the indica tions. Lab Interpretation (test Normal code = 86211-5) [facility] HospitalaPTT2020-07-11 04:40:00 Test Item Value Reference Range Interpretation Comments APTT Patient (test code = See_Comment [ Automated message] 3173-2) The system [employer] generated this result transmitted ref erence range: 26 - 36 Seconds. The re ference range was not u sed to interpret this result as normal/abnor mal. Lab Interpretation (test Normal code = 70654-9) [facility] HospitalPhosphorus Sqvvq2414-22-56 04:31:00 Test Item Value Reference Range Interpretation Comments PHOSPHORUS (test code = 2897038012) 4.0 mg/dL 2.5-5 Lab Interpretation (test code = Normal 48852-8) [facility] HospitalXR ABDOMEN ACUTE [id number] 02:54:09 Impression: No radiographic evidence for acute cardiopulmonary disease. No radiographic evidence forpneumoperitoneum. Marked gaseous distention of predominantly large bowel loops in the abdomenand pelvis, similar to prior CT of 02/26/2020. On that CT, there was atransition in the distal descending colon, without mass lesion or definitesigmoid volvulus appreciated. RL: 460 AFC: 53447 Indication: Diffuse abdominal pain, obstructionComparison: CT the [...] lesion or definitesigmoid volvulus appreciated. RL: 460AFC: 86761Mlruumjddbkskw signed by Angeli Carrillo MD, PhD at 03/02/2020 9:54 PM [facility] HospitalUrinalysis2020-07-11 01:50:00 Test Item Value Reference Range Interpretation Comments APPEARANCE (test code = Hazy Clear A 8268508368) COLOR (test code = Tahira Yellow A 6613962194) PH (test code = 4.8-8.0 5397276183) SP GRAVITY (test code = 1.003-1.030 1734089508) GLU U QUAL (test code = Normal Normal 8802576738) BLOOD (test code = Negative Negative 3058243430) KETONES (test code = 5 mg/dL Negative A 0854035090) PROTEIN (test code = Negative Negative 2887-8) UROBILIN (test code = 2.0 mg/dL Normal A 1440671057) BILIRUBIN (test code = Negative Negative 8110560122) NITRITE (test code = Negative Negative 7111020728) LEUK ROGER (test code = Negative Negative 4444118615) RBC/HPF (test code = See_Comment [Autom ated message] 7324618410) The system [employer] generated this result transmit dain reference range : 0 - 3 HPF. The refe rence range was not u sed to interpret th is result as normal/abnormal . WBC/HPF (test code = See_Comment [Autom ated message] 6682592934) The system [employer] generated this result transmit dain reference range : 0 - 5 HPF. The refe rence range was not u sed to interpret th is result as normal/abnormal . BACTERIA (test code = Negative Negative 2602595456) MUCOUS (test code = Slight Negative LPF A 7845772295) SQ EPITH (test code = <1 See_Comment [Auto mated message] 8885887030) The system [employer] generated this result transmit dain reference range : <=2 HPF. The refere nce range was not u sed to interpret th is result as normal/abnormal . CA OXALATE (test code = See_Comment H [Au tomated message] 9172896581) The system [employer] generated this result transmit dain reference range : <=1 HPF. The refere nce range was not u sed to interpret th is result as normal/abnormal . SPERM (test code = See_Comment [Automat ed message] 1351666808) The system [employer] generated this result transmit dain reference range : <=1 HPF. The refere nce range was not u sed to interpret th is result as normal/abnormal . Lab Interpretation (test Abnormal code = 35360-7) [facility] (NA, K, CL, CO2, GLUCOSE, BUN, CREATININE, CA)2020-03-03 01:44:00 Test Item Value Reference Range Interpretation Comments NA (test code = 140 mmol/L 135-145 0742469062) K (test code = 4.1 mmol/L 3.5-5 4147897180) CL (test code = 106 mmol/L 98-108 3184592984) CO2 TOTAL (test code = 25 mmol/L 23-31 2400292618) AGAP (test code = 2-16 7512045118) BUN (test code = 17 mg/dL 7-23 9507423047) GLUCOSE (test code = 91 mg/dL 70-110 3036022518) CREATININE (test code 1.13 mg/dL 0.6-1.25 = 9060779656) CALCIUM (test code = 9.0 mg/dL 8.6-10.6 9268239715) eGFR Calculation mL/min/1.73m2 (Non-) (test code = 6318420378) eGFR Calculation mL/min/1.73m2 () (test code = 7644873891) GILBERTO (test code = GILBERTO) Association of [...] or urine or abnormalities in imaging tests). [facility] HospitalHepatic Function Panel (ALB, T.PRO, BILI T, BU/BC, ALT, AST, ALK PHOS)2020-03-03 01:44:00 Test Item Value Reference Range Interpretation Comments TOTAL BILI (test code = 5490588280) 0.4 mg/dL 0.1-1.1 BILI UNCON (test code = 8150650922) 0.4 mg/dL 0.1-1.1 BILI CONJ (test code = 7422627620) 0.0 mg/dL 0-0.3 T PROTEIN (test code = 5531020901) 6.3 g/dL 6.3-8.2 ALBUMIN (test code = 7611888301) 4.2 g/dL 3.5-5 ALK PHOS (test code = 9871544330) 43 U/L 34-122 ALTv (test code = 1742-6) 20 U/L 5-50 AST(SGOT) (test code = 6333953754) 26 U/L 13-40 Lab Interpretation (test code = Normal 91569-7) [facility] WITH [id number] 01:37:00 Test Item Value Reference Range Interpretation [...] RDW-SD (test code = 45.0 fL 38.5-51.6 88951-8) RDW-CV (test code = 13.7 % 12.1-15.4 788-0) PLT (test code = See_Comment [Automated 777-3) message] The sy stem which generated this result transmitted reference range : 150 - 328 10*3/ ?L. The reference r meredith was not used to interpret this result as normal/abnormal . MPV (test code = 11.3 fL 9.8-13 46749-9) NRBC/100 WBC (test See_Comment [Automat ed code = 0753443651) message] The system which generated this result transmitted reference range : 0.0 - 10.0 /100 WBCs. The refer ence range was not u sed to interpret th is result as normal/abnormal . NRBC x10^3 (test code <0.01 See_Comment [Auto mated = 2837431419) message] The s [employer] which generated this result transmitted reference range : 10*3/?L. The reference range was not used to interpret this result as normal/abnormal . GRAN MAT (NEUT) % 53.2 % (test code = 770-8) IMM GRAN % (test code 0.20 % = 0558955505) LYMPH % (test code = 34.5 % 736-9) MONO % (test code = 9.7 % 5905-5) EOS % (test code = 1.8 % 713-8) BASO % (test code = 0.6 % 706-2) GRAN MAT x10^3(ANC) 2.69 10*3/uL 1.99-6.95 (test code = 1243655307) IMM GRAN x10^3 (test <0.03 0-0.06 code = 0476028135) LYMPH x10^3 (test code 1.74 10*3/uL 1.09-3.23 = 731-0) MONO x10^3 (test code 0.49 10*3/uL 0.36-1.02 = 742-7) EOS x10^3 (test code = 0.09 10*3/uL 0.06-0.53 711-2) BASO x10^3 (test code 0.03 10*3/uL 0.01-0.09 = 704-7) Lab Interpretation Abnormal (test code = 62855-0) [facility] [id number] 01:28:00 Test Item Value Reference Range Interpretation Comments LACTIC ACID (test code = 1.62 mmol/L 9238476744) [facility] [id number] 22:13:00 Test Item Value Reference Range Interpretation Comments AMPHET (test code = Negative Negative 6897947296) LOS U (test code = Negative Negative 8241392510) BENZO U (test code = Negative Negative 4912943674) Cocaine Metabolite (test Negative Negative code = 4261012509) METHADONE (test code = Negative Negative 6175963244) OPIATES (test code = Negative Negative 7067330492) PCP (test code = Negative Negative 8955042618) THC (test code = Negative Negative 9632770703) GILBERTO (test code = GILBERTO) Urine Drug [...] testing). Lab Interpretation (test Normal code = 46483-6) [facility]ULATING [id number] 19:02:00 Test Item Value Reference Range Interpretation Comments TSH (test code = See_Comment [Automated message] 5362061640) The system [employer] generated this result transmitted ref erence range: 0.45 - 4 .70 mIU/L. The refe rence range was not u sed to interpret this result as normal/abnor mal. Lab Interpretation (test Normal code = 38356-2) [facility] [id number] 18:49:00 Test Item Value Reference Range Interpretation Comments FREE T3 (test code = 0006886740) 2.56 pg/mL 2.77-5.27 L Lab Interpretation (test code = Abnormal 19279-7) [facility] [id number] 18:49:00 Test Item Value Reference Range Interpretation Comments FREE T4 (test code = See_Comment [Autom ated message] 0252676463) The system [employer] generated this result transmitted ref erence range: 0.78 - 2 .20 ng/dL:. The ref erence range was not u sed to interpret this result as normal/abnor mal. Lab Interpretation (test Normal code = 81042-7) [facility] W [id number] 20:56:47 Persistent marked severe dilatation of the [...] No focal hepatic lesions. Normal contour. Hepatomegaly, pdovddjjl69.7 cm, in the craniocaudal dimension. Diffuse hypoattenuation [...] No focal hepatic lesions. Normal contour. Hepatomegaly, ksovncwvg74.7 cm, in the craniocaudal dimension. Diffuse hypoattenuation [...] this study and agree withthe above report. [facility] (ID NOW RAPID TESTING)2020-02-26 07:03:00 Test Item Value Reference Range Interpretation Comments SARS-CoV-2 Rapid ID NOW Not Detected Not Detected (test code = 61467-6) GILBERTO (test code = GILBERTO) ID NOW COVID-19 Assay is an isothermal nucleic acid amplification test intended for the qualitative detection of nucleic acid from SARS-CoV-2 viral RNA in nasopharyngeal (UI LEAD DEVELOPER) specimens. It is used under Emergency Use [...] indicated. Lab Interpretation Normal (test code = 45683-8) [facility] AC[facility] [id number] 05:00:33 Impression: No radiographic evidence for acute cardiopulmonary disease. Marked gaseous distention ofthe colon, with a relative paucity of gas inthe distal sigmoid colon and rectum. This may reflect pseudoobstruction,but mechanical distal colonic obstruction cannot be excluded. RL: 460 AFC: [id number] Ordering physician: SABI CORTESUIndication: Abdominal distention Comparison: [...] in the distal sigmoid colon and rectum. [facility], Radiant Results Inft User - 02/26/2020 [...] distal colonic obstruction cannot be excluded.RL: 460AF: [id number] signed by Angeli Carrillo MD, PhD at 02/26/2020 12:00 [facility] Metabolic Panel (NA, K, CL, CO2, GLUCOSE, BUN, CREATININE, CA)2020-02-26 04:03:00 Test Item Value Reference Range Interpretation Comments NA (test code = 142 mmol/L 135-145 3660831451) K (test code = 4.1 mmol/L 3.5-5 4040607340) CL (test code = 107 mmol/L 98-108 2157605636) CO2 TOTAL (test code = 29 mmol/L 23-31 5503120028) AGAP (test code = 2-16 1639982876) BUN (test code = 13 mg/dL 7-23 3399096523) GLUCOSE (test code = 82 mg/dL 70-110 8548864619) CREATININE (test code 1.14 mg/dL 0.6-1.25 = 1113759537) CALCIUM (test code = 9.5 mg/dL 8.6-10.6 4957669685) eGFR Calculation mL/min/1.73m2 (Non-) (test code = 8160512389) eGFR Calculation mL/min/1.73m2 () (test code = 5277968331) GILBERTO (test code = GILBERTO) Association of [...] or urine or abnormalities in imaging tests). [facility] (ALB, T.PRO, BILI T, BU/BC, ALT, AST, ALK PHOS)2020-02-26 04:03:00 Test Item Value Reference Range Interpretation Comments TOTAL BILI (test code = 7363704311) 0.5 mg/dL 0.1-1.1 BILI UNCON (test code = 4844831816) 0.5 mg/dL 0.1-1.1 BILI CONJ (test code = 6473768768) 0.0 mg/dL 0-0.3 T PROTEIN (test code = 0202230384) 6.2 g/dL 6.3-8.2 L ALBUMIN (test code = 8987296368) 4.2 g/dL 3.5-5 ALK PHOS (test code = 6814691116) 40 U/L 34-122 ALTv (test code = 1742-6) 20 U/L 5-50 AST(SGOT) (test code = 4079722367) 26 U/L 13-40 Lab Interpretation (test code = Abnormal 86349-5) [facility] HospitalLipase [id number] 04:03:00 Test Item Value Reference Range Interpretation Comments LIPASE (test code = 6007803539) 57 U/L 0-220 Lab Interpretation (test code = Normal 47204-2) [facility] Whole [id number] 03:52:00 Test Item Value Reference Range Interpretation Comments LACTIC ACID (test code = 1.66 mmol/L 0.5-2.2 6135836022) [facility] WITH [id number] 03:47:00 Test Item Value Reference Range Interpretation [...] RDW-SD (test code = 45.1 fL 38.5-51.6 02096-2) RDW-CV (test code = 13.7 % 12.1-15.4 788-0) PLT (test code = See_Comment [Automated 777-3) message] The sy stem which generated this result transmitted reference range : 150 - 328 10*3/ ?L. The reference r meredith was not used to interpret this result as normal/abnormal . MPV (test code = 10.7 fL 9.8-13 90715-9) NRBC/100 WBC (test See_Comment [Automat ed code = 4645649300) message] The system which generated this result transmitted reference range : 0.0 - 10.0 /100 WBCs. The refer ence range was not u sed to interpret th is result as normal/abnormal . NRBC x10^3 (test code <0.01 See_Comment [Auto mated = 2691971790) message] The s ystem which generated this result transmitted reference range : 10*3/?L. The reference range was not used to interpret this result as normal/abnormal . GRAN MAT (NEUT) % 63.1 % (test code = 770-8) IMM GRAN % (test code 0.40 % = 4879172121) LYMPH % (test code = 25.1 % 736-9) MONO % (test code = 9.9 % 5905-5) EOS % (test code = 1.1 % 713-8) BASO % (test code = 0.4 % 706-2) GRAN MAT x10^3(ANC) 3.52 10*3/uL 1.99-6.95 (test code = 5255654529) IMM GRAN x10^3 (test <0.03 0-0.06 code = 8990040634) LYMPH x10^3 (test code 1.40 10*3/uL 1.09-3.23 = 731-0) MONO x10^3 (test code 0.55 10*3/uL 0.36-1.02 = 742-7) EOS x10^3 (test code = 0.06 10*3/uL 0.06-0.53 711-2) BASO x10^3 (test code <0.03 0.01-0.09 = 704-7) Lab Interpretation Abnormal (test code = 35386-4) [facility]EN 1 [id number] 12:53:00 Name: DORA JOSEPH [facility] : 1970 Age/S: 50 / M [id number] Unit #: [id number] Loc: [place] [address] 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 Multiple prior abdominal radiographs. Findings: The lung bases are grossly clear. Redemonstrated are markedly dilated, gas-filled small and large bowel loops, filling and distending the abdomen. There is gas in the rectum. Theseappear progressed as prior exam with increased distention [...] MD PAGE1 Signed Report Name: DORA JOSEPH [facility] : 1970 Age/S: 50 / M [address] Unit #: [id number] Loc: [place] [address] 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 Acct: [id number] Dis Date: Status: ADM IN PHONE #: [phone] Exam Date: 02/25/2020 1036 FAX #: Reason: abdominal distention EXAMS: CPT: [id number] XR ABDOMEN 1 V 10768 Fluoro Time: DAP (Gy m2): Air Kerma (mGy): <Continued> Technologist: Nichole Dill RT(R) Trnscb Date/Time: 02/25/2020 (456) GarettEFM1 Orig Print D/T:S: 02/25/2020 (4108) PAGE 2 Signed Report COMPREHENSIVE METABOLIC [id number] 08:20:00 Test Item Value Reference Range Interpretation [...] 50-136 L TOTAL (test code = ALKP) [id number] 08:20:00 Test Item Value Reference Range Interpretation Comments MAGNESIUM (test code = MAG) 2.2 MG/DL 1.8-2.4 N THYROID STIMULATING [id number] 08:20:00 Test Item Value Reference Range Interpretation Comments THYROID STIMULATING HORMONE 5.430 mcIU/ML 0.340-4.820 H (test code = TSH) CBC W/AUTO [id number] 07:55:00 Test Item Value Reference Range Interpretation [...] N NRBC#) UA RFLX MICR CULT IF [id number] 12:29:00 Test Item Value Reference Range Interpretation [...] culture: Suprapubic PainUA RFLX MICR CULT IF [id number] 12:29:00 Test Item Value Reference Range Interpretation [...] for culture: Suprapubic PainCOVID 19 Asymptomatic IH [id number] 22:09:00 Test Item Value Reference Range Interpretation [...] tent with COVID-19. - CT ABD PELVIS W/[id number] 21:10:00 Name: DORA JOSEPH [place] : 1970 Age/S: 50 / M [address] Unit #: [id number] Loc: [place] [address] Phys: Evin Castellanos MD Acct: [id number] Dis Date: Status: REG ER PHONE #: [phone] Exam Date: 02/23/20206 FAX #: Reason: diffuse abdomen pain and distention EXAMS: CPT: [id number] CT ABD PELVIS W/CONT 29685 EXAM: - CT ABD PELVIS W/CONT LOCATION: [...] 1 Signed Report (CONTINUED) Name: DORA JOSEPH [place] : 1970 Age/S: 50 / M [address] Unit #: [id number] Loc: [place] [address] Phys: Evin Castellanos MD Acct: [id number] Dis Date: Status: REG ER PHONE #: [phone] Exam Date: 02/23/20202047 FAX #: Reason: diffuse abdomen pain and distention EXAMS: CPT: [id number] CT ABD PELVIS W/CONT 65245 <Continued> CT. No bowel wall thickening or [...] PAGE 2 Signed Report- XR CHEST 1 [id number] 21:03:00 Name: DORA JOSEPH [place] : 1970 Age/S: 50 / M [address] Unit #: [id number] Loc: [place] [address] Phys: Evin Castellanos MD Acct: [id number] Dis Date: Status: REG ER PHONE #: [phone] Exam Date: 02/23/20202055 FAX #: Reason: Code Sepsis EXAMS: CPT: [id number] XR CHEST 1 V 11423 Fluoro Time: DAP (Gy m2): Air Kerma [...] by: Monica Quijano MD CC: Susana Meza UI LEAD DEVELOPER; Carl Luevano MD PAGE1 Signed Report Name: DORA JOSEPH [facility] : 1970 Age/S: 50 / M [address] Unit #: [id number] Loc: [place] [address] Phys: Evin Castellanos MD Acct: [id number] Dis Date: Status: REG ER PHONE #: [phone] Exam Date: 02/23/20202055 FAX #: Reason: Code Sepsis EXAMS: CPT: [id number] XR CHEST 1 V 29123 Fluoro Time: DAP (Gy m2): Air Kerma (mGy): <Continued> Technologist: Rudy Zuniga RT(R)(CT)(MRI) Trnscb Date/Time: 02/23/2020 (2102) tLUIGI Orig Print D/T: S:02/23/2020 (2106) PAGE 2 [...] 8.5-10.1 N Completed by Nursing: NOHEPATIC FUNCTION [id number] 20:02:00 Test Item Value Reference Range Interpretation [...] N code = ALKP) Completed by Nursing: [id number] 20:02:00 Test Item Value Reference Range Interpretation Comments LIPASE (test code = LIP) 97 Unit/L 114-286 L Completed by Nursing: [id number]-G9733-63-02 20:02:00 Test Item Value Reference Range Interpretation [...] brittani yby method. Completed by Nursing: NOLACTIC [id number] 19:59:00 Test Item Value Reference Range Interpretation Comments LACTIC ACID (test code = LACT) 1.2 mmol/L 0.4-2.0 N CBC W/AUTO [id number] 19:46:00 Test Item Value Reference Range Interpretation [...] CRITERIA = MDIFF) - XR ABDOMEN 2 [id number] 06:22:00 [facility] [place] [facility] 1970 Age/S: 50 / M [address] Unit #: [id number] Loc: [place] [address] Phys: Leonidas Robertson MD Acct: [id number] Dis Date: Status: ADM IN PHONE #: [phone] Exam Date: 02/19/2020 0440 FAX #: Reason: megacolon EXAMS: CPT: [id number] XRABDOMEN 2 V 89699 Fluoro Time: DAP (Gy m2): Air Kerma [...] PAGE 1 Signed Report Name: DORA JOSEPH [place] : 1970 Age/S: 50 / M [address] Unit #: [id number] Loc: [place] [address] Phys: Leonidas Robertson MD Acct: [id number] Dis Date: Status: ADM IN PHONE #: [phone] Exam Date: 02/19/2020 0440 FAX #: Reason: megacolon EXAMS: CPT: [id number] XR ABDOMEN 2 V 22365 Fluoro Time: DAP (Gy m2): Air Kerma (mGy): <Continued> Technologist: Carrie Barnett, RT(R)(CT) Trnscb Date/Time: 02/19/2020 (06) RafatR.AL7 Orig Print D/T: S: 02/19/2020 (0679) PAGE 2 Signed ReportBASIC METABOLIC [id number] 05:52:00 Test Item Value Reference Range Interpretation [...] CA) 8.5 MG/DL 8.5-10.1 N CBC W/AUTO [id number] 05:40:00 Test Item Value Reference Range Interpretation [...] NO DIFF/SCN CRITERIA = MDIFF) BASIC METABOLIC [id number] 06:52:00 Test Item Value Reference Range Interpretation [...] CA) 8.3 MG/DL 8.5-10.1 L CBC W/AUTO [id number] 06:39:00 Test Item Value Reference Range Interpretation [...] DIFF/SCN CRITERIA = MDIFF) Coronavirus 2019 nCoV Wnphgjn8450-22-83 05:35:00 Test Item Value Reference Range Interpretation [...] NA (test code = 139 mmol/L 135-145 8573455768) K (test code = 4.3 mmol/L 3.5-5 0157022765) CL (test code = 105 mmol/L 98-108 5748612893) CO2 TOTAL (test code = 30 mmol/L 23-31 9162592200) AGAP (test code = 2-16 8629533887) BUN (test code = 6 mg/dL 7-23 L 6440452246) GLUCOSE (test code = 94 mg/dL 70-110 8064050410) CREATININE (test code = 1.07 mg/dL 0.6-1.25 9447845232) CALCIUM (test code = 9.3 mg/dL 8.6-10.6 6239786431) eGFR Calculation mL/min/1.73m2 (Non-) (test code = 6655119450) eGFR Calculation mL/min/1.73m2 () (test code = 8347400933) GILBERTO (test code = GILBERTO) Association of [...] tests). Lab Interpretation Abnormal (test code = 19273-9) [facility]2020-[facility] 16:58:00 Test Item Value Reference Range Interpretation Comments MAGNESIUM (test code = 8667912112) 2.0 mg/dL 1.7-2.4 Lab Interpretation (test code = Normal 19950-2) [facility] [id number] 17:02:411. Interval worsening of air distended loops [...] cecum measuring up to 15 cm. [facility] WITH [id number] 07:20:00 Test Item Value Reference Range Interpretation Comments WBC (test code = See_Comment L [Automated 5490-2) message] The sy stem which generated this result transmitted reference range : 4.20 - 10.70 10*3/?L. The reference range was not used to interpret this result as normal/abnormal . RBC (test code = See_Comment [Automated 709-8) message] The sy stem which generated this [...] RDW-SD (test code = 46.5 fL 38.5-51.6 62563-1) RDW-CV (test code = 13.9 % 12.1-15.4 788-0) PLT (test code = See_Comment L [Automated 777-3) message] The sy stem which generated this result transmitted reference range : 150 - 328 10*3/ ?L. The reference r meredith was not used to interpret this result as normal/abnormal . MPV (test code = 10.7 fL 9.8-13 06204-5) NRBC/100 WBC (test See_Comment [Automat ed code = 4463734201) message] The system which generated this result transmitted reference range : 0.0 - 10.0 /100 WBCs. The refer ence range was not u sed to interpret th is result as normal/abnormal . NRBC x10^3 (test code <0.01 See_Comment [Auto mated = 7324555188) message] The s ystem which generated this result transmitted reference range : 10*3/?L. The reference range was not used to interpret this result as normal/abnormal . GRAN MAT (NEUT) % 48.6 % (test code = 770-8) IMM GRAN % (test code 0.20 % = 0129293382) LYMPH % (test code = 39.6 % 736-9) MONO % (test code = 8.4 % 5905-5) EOS % (test code = 2.7 % 713-8) BASO % (test code = 0.5 % 706-2) GRAN MAT x10^3(ANC) 1.96 10*3/uL 1.99-6.95 L (test code = 4715543014) IMM GRAN x10^3 (test <0.03 0-0.06 code = 9279552593) LYMPH x10^3 (test code 1.60 10*3/uL 1.09-3.23 = 731-0) MONO x10^3 (test code 0.34 10*3/uL 0.36-1.02 L = 742-7) EOS x10^3 (test code = 0.11 10*3/uL 0.06-0.53 711-2) BASO x10^3 (test code <0.03 0.01-0.09 = 704-7) Lab Interpretation Abnormal (test code = 81776-6) [facility] METABOLIC PANEL (NA, K, CL, CO2, GLUCOSE, BUN, CREATININE, CA)2020-01-31 06:32:00 Test Item Value Reference Range Interpretation Comments NA (test code = 138 mmol/L 135-145 9460332936) K (test code = 4.2 mmol/L 3.5-5 Slight 2921691308) hemolysis CL (test code = 108 mmol/L 98-108 5375457162) CO2 TOTAL (test code 22 mmol/L 23-31 L = 3375930001) AGAP (test code = 2-16 0017339524) BUN (test code = 7 mg/dL 7-23 Slight 8768039372) hemolysis GLUCOSE (test code = 92 mg/dL 70-110 3637897134) CREATININE (test code 1.02 mg/dL 0.6-1.25 = 4075337592) CALCIUM (test code = 8.9 mg/dL 8.6-10.6 4202166646) eGFR Calculation mL/min/1.73m2 (Non-) (test code = 5326654131) eGFR Calculation mL/min/1.73m2 () (test code = 6565322829) GILBERTO (test code = GILBERTO) Association of [...] tests). Lab Interpretation Abnormal (test code = 47607-9) [facility] WITH [id number] 11:00:00 Test Item Value Reference Range Interpretation [...] RDW-SD (test code = 48.7 fL 38.5-51.6 18374-1) RDW-CV (test code = 14.4 % 12.1-15.4 788-0) PLT (test code = See_Comment L [Automated 777-3) message] The sy stem which generated this result transmitted reference range : 150 - 328 10*3/ ?L. The reference r meredith was not used to interpret this result as normal/abnormal . MPV (test code = 10.7 fL 9.8-13 17219-1) IPF % (test code = 5.1 % 1.2-10.7 Platelet count 0687087385) measured by fluorescence method. NRBC/100 WBC (test See_Comment [Automat ed code = 3264650762) message] The system which generated this result transmitted reference range : 0.0 - 10.0 /100 WBCs. The refer ence range was not u sed to interpret th is result as normal/abnormal . NRBC x10^3 (test code <0.01 See_Comment [Auto mated = 0508455929) message] The s ystem which generated this result transmitted reference range : 10*3/?L. The reference range was not used to interpret this result as normal/abnormal . SEG % (test code = 53 % 33-76 77238-8) BAND % (test code = 1 % 0-1 66587-1) LYMPH % (test code = 39 % 14-54 55792-4) MONO % (test code = 4 % 0-4 45410-5) EOS % (test code = 3 % 0-3 90732-2) ANC (test code = 1.93 10*3/uL 1.99-6.95 L 1487119708) Lab Interpretation Abnormal (test code = 34842-1) [facility] Metabolic Panel (NA, K, CL, CO2, GLUCOSE, BUN, CREATININE, CA)2020-01-29 10:23:00 Test Item Value Reference Range Interpretation Comments NA (test code = 138 mmol/L 135-145 0824205455) K (test code = 4.0 mmol/L 3.5-5 3145731223) CL (test code = 109 mmol/L 98-108 H 1377843609) CO2 TOTAL (test code = 27 mmol/L 23-31 1817873608) AGAP (test code = 2-16 7668172743) BUN (test code = 16 mg/dL 7-23 8274207423) GLUCOSE (test code = 81 mg/dL 70-110 8765517326) CREATININE (test code = 1.14 mg/dL 0.6-1.25 1114265168) CALCIUM (test code = 8.6 mg/dL 8.6-10.6 3404918261) eGFR Calculation mL/min/1.73m2 (Non-) (test code = 2697108304) eGFR Calculation mL/min/1.73m2 () (test code = 9521241457) GILBERTO (test code = GILBERTO) Association of [...] tests). Lab Interpretation Abnormal (test code = 21148-4) [facility] [id number] 04:27:00 Test Item Value Reference Range Interpretation Comments SARS-CoV-2 Rapid ID NOW Not Detected Not Detected (test code = 48734-2) GILBERTO (test code = GILBERTO) ID NOW COVID-19 Assay is an isothermal nucleic acid amplification test intended for the qualitative detection of nucleic acid from SARS-CoV-2 viral RNA in nasopharyngeal (UI LEAD DEVELOPER) specimens. It is used under Emergency Use [...] indicated. Lab Interpretation Normal (test code = 12503-8) [facility] HospitalL[facility] Whole [id number] 04:10:00 Test Item Value Reference Range Interpretation Comments LACTIC ACID (test code = 1.74 mmol/L 0.5-2.2 9263441484) [facility] (ID NOW RAPID TESTING)2020-01-29 02:17:00 Test Item Value Reference Range Interpretation Comments SARS-CoV-2 Rapid ID NOW Not Detected Not Detected (test code = 14673-2) GILBERTO (test code = GILBERTO) ID NOW COVID-19 Assay is an isothermal nucleic acid amplification test intended for the qualitative detection of nucleic acid from SARS-CoV-2 viral RNA in nasopharyngeal (UI LEAD DEVELOPER) specimens. It is used under Emergency Use [...] indicated. Lab Interpretation Normal (test code = 49976-4) [facility] HospitalUrinalysis2020-[facility]07 02:14:00 Test Item Value Reference Range Interpretation Comments APPEARANCE (test code = Clear Clear 8731568050) COLOR (test code = Dark Yellow Yellow A 3401709455) PH (test code = 4.8-8.0 6543450498) SP GRAVITY (test code = 1.003-1.030 H 6193465652) GLU U QUAL (test code = Normal Normal 9203500339) BLOOD (test code = 1+ Negative A 5411180140) KETONES (test code = 5 mg/dL Negative A 6730468852) PROTEIN (test code = Negative Negative 2887-8) UROBILIN (test code = Normal Normal 7087911903) BILIRUBIN (test code = Negative Negative 8869625736) NITRITE (test code = Negative Negative 6784311343) LEUK ROGER (test code = Negative Negative 9826436772) RBC/HPF (test code = See_Comment H [Autom ated [id number]) message] The sy stem which generated this result transmitted reference range : 0 - 3 HPF. The reference range was not used to interpret this result as normal/abnormal . WBC/HPF (test code = See_Comment [Autom ated [id number]) message] The sy stem which generated this result transmitted reference range : 0 - 5 HPF. The reference range was not used to interpret this result as normal/abnormal . BACTERIA (test code = Moderate Negative A [id number]) MUCOUS (test code = Slight Negative LPF A 1874492217) AMORPHOUS (test code = Rare Rare HPF [id number]) SQ EPITH (test code = <1 See_Comment [Auto mated [id number]) message] The sy stem which generated this result transmitted reference range : <=2 HPF. The reference range was not used to interpret this result as normal/abnormal . CA OXALATE (test code = See_Comment H [Au tomated 4142674992) message] The sy stem which generated this result transmitted reference range : <=1 HPF. The reference range was not used to interpret this result as normal/abnormal . HYAL CAST (test code = See_Comment H [Aut omated 3018141297) message] The sy stem which generated this result transmitted reference range : <=2 LPF. The reference range was not used to interpret this result as normal/abnormal . ASCORBIC ACID (test Negative code = 4629324447) Lab Interpretation Abnormal (test code = 25811-1) [facility] W [id number] 00:25:08Persistent marked and severe dilatation of the [...] stable compared to prior examination. [facility] (NA, K, CL, CO2, GLUCOSE, BUN, CREATININE, CA)2020-01-28 23:38:00 Test Item Value Reference Range Interpretation Comments NA (test code = 143 mmol/L 135-145 6857493970) K (test code = 4.2 mmol/L 3.5-5 5309445800) CL (test code = 111 mmol/L 98-108 H 9680021348) CO2 TOTAL (test code = 28 mmol/L 23-31 1611257284) AGAP (test code = 2-16 8945633026) BUN (test code = 15 mg/dL 7-23 8009202770) GLUCOSE (test code = 68 mg/dL 70-110 L 0296785932) CREATININE (test code = 1.32 mg/dL 0.6-1.25 H 4869533830) CALCIUM (test code = 9.0 mg/dL 8.6-10.6 3747608215) eGFR Calculation mL/min/1.73m2 (Non-) (test code = 5792451645) eGFR Calculation mL/min/1.73m2 () (test code = 5477875519) GILBERTO (test code = GILBERTO) Association of [...] tests). Lab Interpretation Abnormal (test code = 53010-3) [facility] (ALB, T.PRO, BILI T, BU/BC, ALT, AST, ALK PHOS)2020-01-28 23:38:00 Test Item Value Reference Range Interpretation Comments TOTAL BILI (test code = 7042436098) 0.6 mg/dL 0.1-1.1 BILI UNCON (test code = 8256146939) 0.6 mg/dL 0.1-1.1 BILI CONJ (test code = 2503074280) 0.0 mg/dL 0-0.3 T PROTEIN (test code = 9642471044) 5.7 g/dL 6.3-8.2 L ALBUMIN (test code = 1479066774) 3.8 g/dL 3.5-5 ALK PHOS (test code = 6983067039) 37 U/L 34-122 ALTv (test code = 1742-6) 23 U/L 5-50 AST(SGOT) (test code = 2371332893) 25 U/L 13-40 Lab Interpretation (test code = Abnormal 72608-6) [facility] HospitalLipase [id number] 23:38:00 Test Item Value Reference Range Interpretation Comments LIPASE (test code = 2665296375) 62 U/L 0-220 Lab Interpretation (test code = Normal 27018-8) [facility] WITH [id number] 23:29:00 Test Item Value Reference Range Interpretation [...] RDW-SD (test code = 47.5 fL 38.5-51.6 93734-8) RDW-CV (test code = 14.3 % 12.1-15.4 788-0) PLT (test code = See_Comment [Automated 777-3) message] The sy stem which generated this result transmitted reference range : 150 - 328 10*3/ ?L. The reference r meredith was not used to interpret this result as normal/abnormal . MPV (test code = 10.6 fL 9.8-13 89768-9) NRBC/100 WBC (test See_Comment [Automat ed code = 1792595397) message] The system which generated this result transmitted reference range : 0.0 - 10.0 /100 WBCs. The refer ence range was not u sed to interpret th is result as normal/abnormal . NRBC x10^3 (test code <0.01 See_Comment [Auto mated = 2152063240) message] The s ystem which generated this result transmitted reference range : 10*3/?L. The reference range was not used to interpret this result as normal/abnormal . GRAN MAT (NEUT) % 50.1 % (test code = 770-8) IMM GRAN % (test code 0.20 % = 2242884580) LYMPH % (test code = 34.7 % 736-9) MONO % (test code = 12.5 % 5905-5) EOS % (test code = 1.8 % 713-8) BASO % (test code = 0.7 % 706-2) GRAN MAT x10^3(ANC) 2.28 10*3/uL 1.99-6.95 (test code = 2525851001) IMM GRAN x10^3 (test <0.03 0-0.06 code = 3814744713) LYMPH x10^3 (test code 1.58 10*3/uL 1.09-3.23 = 731-0) MONO x10^3 (test code 0.57 10*3/uL 0.36-1.02 = 742-7) EOS x10^3 (test code = 0.08 10*3/uL 0.06-0.53 711-2) BASO x10^3 (test code 0.03 10*3/uL 0.01-0.09 = 704-7) Lab Interpretation Abnormal (test code = 45563-1) [facility] (NA, K, CL, CO2, GLUCOSE, BUN, CREATININE, CA)2020-01-26 18:34:00 Test Item Value Reference Range Interpretation Comments NA (test code = 138 mmol/L 135-145 6246198031) K (test code = 3.7 mmol/L 3.5-5 4519420276) CL (test code = 108 mmol/L 98-108 4814061184) CO2 TOTAL (test code = 25 mmol/L 23-31 6255192272) AGAP (test code = 2-16 8931877851) BUN (test code = 9 mg/dL 7-23 2751975270) GLUCOSE (test code = 107 mg/dL 70-110 4665481543) CREATININE (test code 0.96 mg/dL 0.6-1.25 = 3296038013) CALCIUM (test code = 8.7 mg/dL 8.6-10.6 4835796803) eGFR Calculation mL/min/1.73m2 (Non-) (test code = 1387930994) eGFR Calculation mL/min/1.73m2 () (test code = 3143515732) GILBERTO (test code = GILBERTO) Association of [...] or urine or abnormalities in imaging tests). [facility]Magnesium Tlhwx1127-94-71 08:33:00 Test Item Value Reference Range Interpretation Comments MAGNESIUM (test code = 1.9 mg/dL 1.7-2.4 Sligh t hemolysis 6064400003) Lab Interpretation (test Normal code = 55476-4) [facility] HospitalXR [id number] 06:18:53 Redemonstration of marked gaseous distention of the transverse anddescending colon. RL: 460 AFC: 89207 Ordering physician: HELENE GRIFFIN INDICATION: Abdominal pain [...] distention of the transverse anddescending colon.RL: 460AFC: 98054Juqgzqropxkawa signed by Angeli Carrillo MD, PhD at 01/26/2020 1:18 AMUn[facility] Phosphorus Loera2435-12-40 10:11:00 Test Item Value Reference Range Interpretation Comments PHOSPHORUS (test code = 1713571205) 3.9 mg/dL 2.5-5 Lab Interpretation (test code = Normal 39802-5) [facility]OVID[facility] (ID NOW RAPID TESTING)2020-01-25 05:12:00 Test Item Value Reference Range Interpretation Comments SARS-CoV-2 Rapid ID NOW Not Detected Not Detected (test code = 15966-3) GILBERTO (test code = GILBERTO) ID NOW COVID-19 Assay is an isothermal nucleic acid amplification test intended for the qualitative detection of nucleic acid from SARS-CoV-2 viral RNA in nasopharyngeal (UI LEAD DEVELOPER) specimens. It is used under Emergency Use [...] indicated. Lab Interpretation Normal (test code = 28707-7) [facility] HospitalLactic Acid Whole Dutfa9565-35-93 04:34:00 Test Item Value Reference Range Interpretation Comments LACTIC ACID (test code = 0.89 mmol/L 0.5-2.2 4690202823) [facility] PELVIS W ICEXJGGI9272-26-98 02:47:02Impression: Marked distention and dilatation of the [...] bowel as well. Rectal tubedecompression may be considered.[facility] HospitalUrinalysis2020-06-03 01:51:00 Test Item Value Reference Range Interpretation Comments APPEARANCE (test code = Hazy Clear A 7875087564) COLOR (test code = Yellow Yellow 0073889977) PH (test code = 4.8-8.0 2959071094) SP GRAVITY (test code = 1.003-1.030 3693610215) GLU U QUAL (test code = Normal Normal 0444209773) BLOOD (test code = Negative Negative 4566775638) KETONES (test code = Negative Negative 8410232815) PROTEIN (test code = Negative Negative 2887-8) UROBILIN (test code = Normal Normal 0498639518) BILIRUBIN (test code = Negative Negative 5705085220) NITRITE (test code = Negative Negative 4604776567) LEUK ROGER (test code = Negative Negative 4753470475) RBC/HPF (test code = See_Comment H [Autom ated message] 8294524189) The system [employer] generated this result transmitted ref erence range: 0 - 3 HP F. The reference range was not used to int erpret this result as normal/abnormal . WBC/HPF (test code = See_Comment [Autom ated message] 6531467212) The system [employer] generated this result transmitted ref erence range: 0 - 5 HP F. The reference range was not used to int erpret this result as normal/abnormal . BACTERIA (test code = Negative Negative 5339129676) SQ EPITH (test code = <1 See_Comment [Auto mated message] 7258601278) The system [employer] generated this result transmitted ref erence range: <=2 HPF. The reference range was not used to int erpret this result as normal/abnormal . CA OXALATE (test code = See_Comment H [Au tomated message] 6651074013) The system [employer] generated this result transmitted ref erence range: <=1 HPF. The reference range was not used to int erpret this result as normal/abnormal . Lab Interpretation (test Abnormal code = 31024-5) [facility] Met[facility] Panel (NA, K, CL, CO2, GLUCOSE, BUN, CREATININE, CA)2020-01-25 01:01:00 Test Item Value Reference Range Interpretation Comments NA (test code = 139 mmol/L 135-145 6541747922) K (test code = 4.6 mmol/L 3.5-5 Slight hemoly sis 4009685226) CL (test code = 107 mmol/L 98-108 7762566130) CO2 TOTAL (test 26 mmol/L 23-31 code = 8818073197) AGAP (test code = 2-16 2809565712) BUN (test code = 23 mg/dL 7-23 Slight hemo lysis 4668350489) GLUCOSE (test code 94 mg/dL 70-110 = 8820558889) CREATININE (test 1.13 mg/dL 0.6-1.25 code = 7249742845) CALCIUM (test code 8.9 mg/dL 8.6-10.6 = 5175659658) eGFR Calculation mL/min/1.73m2 (Non-) (test code = 6901294751) eGFR Calculation mL/min/1.73m2 () (test code = 5933669205) GILBERTO (test code = Association of GILBERTO) [...] or urine or abnormalities in imaging tests). [facility] (ALB, T.PRO, BILI T, BU/BC, ALT, AST, ALK PHOS)2020-01-25 01:01:00 Test Item Value Reference Range Interpretation Comments TOTAL BILI (test code = 3049365102) 0.7 mg/dL 0.1-1.1 BILI UNCON (test code = 8298598762) 0.6 mg/dL 0.1-1.1 BILI CONJ (test code = 9378561151) 0.0 mg/dL 0-0.3 T PROTEIN (test code = 0559966566) 6.2 g/dL 6.3-8.2 L ALBUMIN (test code = 8617930590) 4.1 g/dL 3.5-5 ALK PHOS (test code = 4890201435) 46 U/L 34-122 ALTv (test code = 1742-6) 27 U/L 5-50 AST(SGOT) (test code = 8138202061) 31 U/L 13-40 Lab Interpretation (test code = Abnormal 60022-0) [facility] HospitalLipase Flqny1526-45-95 01:01:00 Test Item Value Reference Range Interpretation Comments LIPASE (test code = 1719116032) 246 U/L 0-220 H Lab Interpretation (test code = Abnormal 26975-9) [facility] HospitalCBC WITH [id number] 00:49:00 Test Item Value Reference Range Interpretation [...] RDW-SD (test code = 46.8 fL 38.5-51.6 68642-1) RDW-CV (test code = 14.2 % 12.1-15.4 788-0) PLT (test code = See_Comment [Automated 777-3) message] The sy stem which generated this result transmitted reference range : 150 - 328 10*3/ ?L. The reference r meredith was not used to interpret this result as normal/abnormal . MPV (test code = 10.7 fL 9.8-13 02655-6) NRBC/100 WBC (test See_Comment [Automat ed code = 6515145220) message] The system which generated this result transmitted reference range : 0.0 - 10.0 /100 WBCs. The refer ence range was not u sed to interpret th is result as normal/abnormal . NRBC x10^3 (test code <0.01 See_Comment [Auto mated = 5364025379) message] The s ystem which generated this result transmitted reference range : 10*3/?L. The reference range was not used to interpret this result as normal/abnormal . GRAN MAT (NEUT) % 56.9 % (test code = 770-8) IMM GRAN % (test code 0.20 % = 9821346682) LYMPH % (test code = 31.2 % 736-9) MONO % (test code = 9.7 % 5905-5) EOS % (test code = 1.6 % 713-8) BASO % (test code = 0.4 % 706-2) GRAN MAT x10^3(ANC) 2.86 10*3/uL 1.99-6.95 (test code = 6920238245) IMM GRAN x10^3 (test <0.03 0-0.06 code = 2816324698) LYMPH x10^3 (test code 1.57 10*3/uL 1.09-3.23 = 731-0) MONO x10^3 (test code 0.49 10*3/uL 0.36-1.02 = 742-7) EOS x10^3 (test code = 0.08 10*3/uL 0.06-0.53 711-2) BASO x10^3 (test code <0.03 0.01-0.09 = 704-7) Lab Interpretation Abnormal (test code = 29365-5) [facility] X[facility] ABDOMEN 1 [id number] 07:32:00 Name: DORA JOSEPH [facility] : 1970 Age/S: 49 / M [address] Unit #: [id number] Loc: [place] [address] Phys: Jay Mayo MD Acct: [id number] Dis Date: Status: ADM IN PHONE #: [phone] Exam Date: 01/10/2020 0658 FAX #: Reason: follow up colonic ileus EXAMS:CPT: [id number] XR ABDOMEN 1 V 77636 Fluoro Time: DAP (Gy m2): Air Kerma [...] PAGE 1 Signed Report Name: DORA JOSEPH [facility] : 1970 Age/S: 49 / M [address] Unit #: [id number] Loc: [place] [address] Phys: Jay Mayo MD Acct: [id number] Dis Date: Status: ADM IN PHONE #: [phone] Exam Date: 01/10/2020 0658 FAX #: Reason: follow up colonic ileus EXAMS: CPT: [id number] XR ABDOMEN 1 V 54519 Fluoro Time: DAP (Gy m2): Air Kerma (mGy): <Continued> Technologist: Bakari De Leon RT(R)(CT) Trnscb Date/Time: 01/10/2020 (0732) tJUDSONCB5 Orig Print D/T: S: 01/10/2020 (0736) PAGE 2 Signed ReportCOMPREHENSIVE METABOLIC [id number] 05:56:00 Test Item Value Reference Range Interpretation [...] TOTAL (test code = ALKP) CBC W/AUTO [id number] 05:42:00 Test Item Value Reference Range Interpretation [...] = NO DIFF/SCN CRITERIA MDIFF) BASIC METABOLIC [id number] 06:59:00 Test Item Value Reference Range Interpretation [...] code = CA) 8.5 MG/DL 8.5-10.1 N [id number] 06:59:00 Test Item Value Reference Range Interpretation Comments MAGNESIUM (test code = MAG) 2.2 MG/DL 1.8-2.4 PROTHROMBIN [id number] 06:39:00 Test Item Value Reference Range Interpretation Comments PT PATIENT (test code = PTP) 13.1 SECONDS 9.3-12.9 H INTERNATIONAL NORMAL RATIO 1.16 INR Unit 0.8-1.2 N (test code = INR) CBC W/AUTO [id number] 06:22:00 Test Item Value Reference Range Interpretation [...] DIFF/SCN CRITERIA MDIFF) - XR ABDOMEN 1 [id number] 05:39:00 Name: DORA JOSEPH [place] : 1970 Age/S: 49 / M [address] Unit #: [id number] Loc: [place] [address] 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 Acct: [id number] Dis Date: Status: ADM IN PHONE#: [phone] Exam Date: 01/09/2020522 FAX #: Reason: colonic ileus/obstruction EXAMS: CPT: [id number] XR ABDOMEN 1 V 92099 Fluoro Time: DAP (Gy m2): Air Kerma [...] PAGE 1 Signed Report Name: DORA JOSEPH [place] : 1970 Age/S: 49 / M [address] Unit #: [id number] Loc: [place] [address] 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 Acct: [id number] Dis Date: Status: ADM IN PHONE #: [phone] Exam Date: 01/09/2020522 FAX #: Reason: colonic ileus/obstruction EXAMS: CPT: [id number] XR ABDOMEN 1 O67540 Fluoro Time: DAP (Gy m2): Air Kerma (mGy): <Continued> Technologist: Esperanza Hays(Esperanza)(CT) Trnscb Date/Time: 01/09/2020 (0539) GarettFC Orig Print D/T: S: 01/09/2020 (0542) PAGE 2 Signed ReportCoronavirus 2018 nCoV Rqbdzwd5382-49-00 22:38:00 Test Item Value Reference Range Interpretation Comments Coronavirus 2019 nCoV Bedside (test Negative Negative code = [id number]) Emergent procedure? YESCoronavirus 2019 nCoV Wjonesr3973-78-24 22:38:00 Test Item Value Reference Range Interpretation Comments Coronavirus 2019 nCoV Bedside (test Negative Negative code = SUGNE14ISRGZ) Emergent procedure? YESBASIC METABOLIC [id number] 18:42:00 Test Item Value Reference Range Interpretation [...] CA) 8.5 MG/DL 8.5-10.1 N CBC W/AUTO [id number] 10:50:00 Test Item Value Reference Range Interpretation [...] = NO DIFF/SCN CRITERIA MDIFF) COMPREHENSIVE METABOLIC [id number] 10:46:00 Test Item Value Reference Range Interpretation [...] 50-136 N TOTAL (test code = ALKP) [id number] 10:46:00 Test Item Value Reference Range Interpretation Comments MAGNESIUM (test code = MAG) 2.6 MG/DL 1.8-2.4 H COMPREHENSIVE METABOLIC [id number] 10:34:00 Test Item Value Reference Range Interpretation [...] TOTAL (test Unit/L 50-136 code = ALKP) [id number] 10:34:00 Test Item Value Reference Range Interpretation Comments MAGNESIUM (test code = MAG) MG/DL 1.8-2.4 - XR ABDOMEN 1 [id number] 08:28:00 Name: DORA JOSEPH [place] : 1970 Age/S: 49 / M [address] Unit #: [id number] Loc: [place] [address] Phys: Yas Edwards MD Acct: [id number] Dis Date: Status: ADM IN PHONE #: [phone] Exam Date: 01/08/2020509 FAX #: Reason: ileus EXAMS: CPT: [id number] XR ABDOMEN 1V 61232 Fluoro Time: DAP (Gy m2): Air Kerma [...] PAGE 1 Signed Report Name: DORA JOSEPH [place] : 1970 Age/S: 49 / M [address] [facility] Unit #: [id number] Loc: [place] [address] Phys: Yas Edwards MD Acct: [id number] Dis Date: Status: ADM IN PHONE #: [phone] Exam Date: 01/08/2020 0510 FAX #: Reason: ileus EXAMS: CPT: [id number] XR ABDOMEN 1 V 97949 Fluoro Time: DAP (Gy m2): Air Kerma (mGy): <Continued> Technologist: Carrie Barnett, RT(R)(CT); ... Trnscb Date/Time: 01/08/2020 (08) [facility] Orig Print D/T: S: 01/08/2020 (0831) PAGE 2 Signed ReportCOMPREHENSIVE METABOLIC [id number] 07:08:00 Test Item Value Reference Range Interpretation [...] 50-136 L TOTAL (test code = ALKP) [id number] 07:08:00 Test Item Value Reference Range Interpretation Comments MAGNESIUM (test code = MAG) 1.3 MG/DL 1.8-2.4 L COMPREHENSIVE METABOLIC [id number] 05:16:00 Test Item Value Reference Range Interpretation [...] 50-136 L TOTAL (test code = ALKP) [id number] 05:16:00 Test Item Value Reference Range Interpretation Comments MAGNESIUM (test code = MAG) 1.3 MG/DL 1.8-2.4 L CBC W/AUTO [id number] 05:02:00 Test Item Value Reference Range Interpretation [...] (test code = NO DIFF/SCN CRITERIA MDIFF) [id number] 16:51:00 Test Item Value Reference Range Interpretation Comments MAGNESIUM (test code = MAG) 2.3 MG/DL 1.8-2.4 N FE W/TOTAL IRON BINDING CAP.2020-01-07 16:51:00 Test Item Value Reference Range Interpretation Comments SERUM IRON (test code = IRON) 38 mcG/DL 65-175 L TOTAL IRON BINDING CAPACITY (test 322 mcG/DL 250-450 N code = TIBC) IRON SATURATION (test code = 12 % calc 12-57 N FESAT) [id number] 16:51:00 Test Item Value Reference Range Interpretation Comments FERRITIN (test code = DAVID) 17.6 NG/ML 5.0-323.0 N CALCIUM [id number] 16:50:00 Test Item Value Reference Range Interpretation Comments CALCIUM IONIZED (test code = NAVEED) 1.12 mmol/L 1.12-1.32 N - XR ABDOMEN 1 [id number] 10:29:00 Name: DORA JOSEPH [facility] : 1970 Age/S: 49 / M [address] Unit #: [id number] Loc: [place] [address] Phys: Verona Frost PA-C Acct: [id number] Dis Date: Status: ADM IN PHONE #: [phone] Exam Date: 01/07/2020 0712 FAX #: Reason: reassess SBO EXAMS: CPT: [id number] XR ABDOMEN 1 V 96754 Fluoro Time: DAP (Gy m2): Air Kerma [...] PAGE 1 Signed Report [facility] 1970 Age/S: 49 / M [address] Unit #: [id number] Loc: [place] [address] Phys:Verona Frost PA-C Acct: [id number] Dis Date: Status: ADM IN PHONE #: [phone] Exam Date: 01/07/2020 0712 FAX #: Reason: reassess SBO EXAMS: CPT: [id number] XR ABDOMEN 1 V 72884 Fluoro Time: DAP (Gym2): Air Kerma (mGy): <Continued> Technologist: Bakari De Leon RT(R)(CT) Trnscb Date/Time: 01/07/2020 (1029) tJARED.AGV Orig Print D/T: S: 01/07/2020 (1032) PAGE [...] CA) 5.4 MG/DL 8.5-10.1 LL CBC W/AUTO [id number] 06:49:00 Test Item Value Reference Range Interpretation [...] = NO DIFF/SCN CRITERIA MDIFF) COMPREHENSIVE METABOLIC [id number] 06:10:00 Test Item Value Reference Range Interpretation [...] TOTAL (test code = ALKP) CBC W/AUTO [id number] 05:52:00 Test Item Value Reference Range Interpretation [...] DIFF/SCN CRITERIA MDIFF) - XR ABDOMEN 1 [id number] 01:30:00 Name: DORA JOSEPH [place] : 1970 Age/S: 49 / M [address] Unit #: [id number] Loc: [place] [address] Phys: Ted Coleman NP Acct: [id number] Dis Date: Status: ADM IN PHONE #: [phone] Exam Date: 01/06/2020 010 FAX #: Reason: NG Tube Placement Verification EXAMS: CPT: [id number] XR ABDOMEN 1 V 87343 Fluoro Time: DAP (Gy m2): Air Kerma [...] PAGE 1 Signed Report Name: DORA JOSEPH [place] : 1970 Age/S: 49 / M [address] [place] [address] Unit #: [id number] Loc: [place] [address] Phys: Ted Coleman NP Acct: [id number] Dis Date: Status: ADM IN PHONE #: [phone] Exam Date: 01/06/2020 0100 FAX #: Reason: NG Tube Placement Verification EXAMS: CPT: [id number] XR ABDOMEN 1 V 91530 Fluoro Time: DAP (Gy m2): Air Kerma (mGy): <Continued> Technologist: Amberly Borrero RT(R) Trnscb Date/Time: 01/06/2020 (013) GarettFC Orig Print D/T: S: 01/06/2020 (013) PAGE 2 Signed Report- CT ABD PELVIS W/O [id number] 19:42:00 [place]: St: REG -- Name: DORA JOSEPH [facility] : 1970 Age/S: 49/M [address] [facility] Unit: [id number] Loc: [place], [place] Phys: [place] [address] Acct: [id number] Dis Date:Status: REG ER PHONE #: [phone] Exam Date: 12/13/20191924 FAX #: [phone] Reason: pain EXAMS: CPT CODE: [id number] CT ABD PELVIS W/O CONT 21406 Examination: CT scan abdomen and pelvis without [...] SUJATA ALMANZAR Trnscrd Dt/Tm: 12/13/2019 (1941) GarettVR5 Kvng D/T: S: 12/13/2019 (5 PAGE 1 Signed ReportBASIC METABOLIC [id number] 18:49:00 Test Item Value Reference Range Interpretation [...] code = CA) 8.6 mg/dl 8.0-10.5 N [id number] 18:49:00 Test Item Value Reference Range Interpretation Comments LIPASE (test code = LIP) 97 Units/L 65.0-230.0 N CBC W/AUTO [id number] 18:38:00 Test Item Value Reference Range Interpretation [...] K/mm3 0.0-0.2 N - XR CHEST 1 [id number] 18:36:00 [place]: EM St: PRE -- Name: DORA JOSEPH [facility] : 1970 Age/S: 49/M [address] [place], [place] [address] [employer] Unit #: [id number] Loc: [place], [place]: [place] [address] Acct: [id number] Dis Date:Status: PRE ER PHONE #: [phone] Exam Date: 12/13/20191821 FAX #: [phone] Reason: SOB EXAMS: CPT CODE: [id number] XR CHEST 1 V 71748 Examination: One view chest x-ray Location code: [...] : By: GarettVR5 PAGE 1 Signed Report [place]: St: PRE ------ Name: DORA JOSEPH [facility] : 1970 Age/S: 49/M [address] [place], [place] [address] Unit #: [id number] Loc: [place], [place]: [place] [address] Acct: [id number] Dis Date: Status: PRE ER PHONE #: [phone] Exam Date: 12/13/20191821 FAX #: [phone] Reason: SOB EXAMS: CPT CODE: [id number] XR CHEST 1 V 58338 (Continued) Orig Print D/T: S: 12/13/2019 (1839)PAGE 2 Signed ReportCBC W/PLT COUNT & AUTO [id number] 08:02:00 Test Item Value Reference Range Interpretation [...] Received comment: User comments: Slide comments:BASIC METABOLIC [id number] 07:34:00 Test Item Value Reference Range Interpretation [...] S NOT APPLICABLE FOR DIALYSIS PATIEN TS. [id number] 07:26:00 Test Item Value Reference Range Interpretation Comments PHOSPHORUS (BEAKER) (test code = 3.1 mg/dL 2.3-4.7 604) [id number] 07:26:00 Test Item Value Reference Range Interpretation Comments MAGNESIUM (BEAKER) (test code = 1.6 mg/dL 1.6-2.6 627) RAD, ABDOMEN/KUB, 1 VIEW [id number] 07:04:00Reason for exam:->ileusFINAL REPORT Abdomen , one [...] MDReport Verified Date/Time: 04/03/2019 07:04:46 Reading Location: [address] Ortho Consult Reading Room BASIC METABOLIC [id number] 06:47:00 Test Item Value Reference Range Interpretation [...] code = 413) URINALYSIS WITH MICROSCOPIC IF [id number] 22:01:00 Test Item Value Reference Range Interpretation [...] 463) SOURCE(BEAKER) (test code = 2795) URINALYSIS [id number] 22:01:00 Test Item Value Reference Range Interpretation Comments RBC UA (BEAKER) (test code = 519) 18 /HPF WBC UA (BEAKER) (test code = 520) 1 /HPF CALCIUM OXALATE CRYSTALS (BEAKER) Occasional (test code = 518) [id number] 05:49:00 Test Item Value Reference Range Interpretation Comments PHOSPHORUS (BEAKER) (test code = 2.5 mg/dL 2.3-4.7 604) [id number] 05:49:00 Test Item Value Reference Range Interpretation Comments MAGNESIUM (BEAKER) (test code = 1.7 mg/dL 1.6-2.6 627) BASIC METABOLIC [id number] 05:49:00 Test Item Value Reference Range Interpretation [...] (BEAKER) (test code = 413) BASIC METABOLIC [id number] 06:19:00 Test Item Value Reference Range Interpretation [...] S NOT APPLICABLE FOR DIALYSIS PATIEN TS. [id number] 06:10:00 Test Item Value Reference Range Interpretation Comments MAGNESIUM (BEAKER) 1.8 mg/dL 1.6-2.6 Specimen slightly (test code = 627) hemolyzed [id number] 06:10:00 Test Item Value Reference Range Interpretation [...] (BEAKER) (test code = 413) BASIC METABOLIC [id number] 04:57:00 Test Item Value Reference Range Interpretation [...] S NOT APPLICABLE FOR DIALYSIS PATIEN TS. [id number] 04:55:00 Test Item Value Reference Range Interpretation Comments PHOSPHORUS (BEAKER) (test code = 2.6 mg/dL 2.3-4.7 604) [id number] 04:55:00 Test Item Value Reference Range Interpretation Comments MAGNESIUM (BEAKER) (test code = 1.8 mg/dL 1.6-2.6 627) CT, [id number] 14:16:00FINAL REPORT TECHNIQUE: CT of the abdomen [...] Pope MDReport Verified Date/Time: 03/29/2019 14:16:01Reading Location: [facility] C013Y CT Body Reading Room , ABDOMEN/KUB, 1 VIEW [id number] 10:23:00Reason for exam:->evaluate ileusFINAL REPORT Technique: Supine [...] MDReport Verified Date/Time: 03/29/2019 10:23:29 Reading Location: [facility] Reading Room CBC (HEMOGRAM ONLY)2019-03-29 08:10:00 [...] WBC 0-0 (BEAKER) (test code = 413) [id number] 06:20:00 Test Item Value Reference Range Interpretation Comments PHOSPHORUS (BEAKER) (test code = 2.6 mg/dL 2.3-4.7 604) [id number] 06:20:00 Test Item Value Reference Range Interpretation Comments MAGNESIUM (BEAKER) (test code = 2.0 mg/dL 1.6-2.6 627) BASIC METABOLIC [id number] 06:20:00 Test Item Value Reference Range Interpretation [...] TS. RAD, ABDOMEN SERIES W/ UPRIGHT PA [id number] 22:18:00Reason for exam:- >eval ileusFINAL REPORT CLINICAL [...] with CT abdomen pelvis. Signed: Jian Powers MDRlesort Verified Date/Time: 03/28/2019 22:18:50 RAD, ABDOMEN/KUB, 1 VIEW [id number] 11:23:00Reason for exam:->abdominal distensionShould this be performed [...] Ontiveros Verified Date/Time: 03/28/2019 11:23:34 Reading Location: [facility] Radiology Reading Room TISSUE [id number] 09:00:00Surgical Pathology Report Case: [id number] Authorizing Provider: Graciela Garrison MD Collected: 03/25/2019 1133 Ordering Location: [facility] Received: 03/25/2019 1527 SERVICES Pathologist: [...] FOR MALIGNANCY Signing Pathologist Direct Phone Line: [phone] signed by Jordan Celaya MD on 03/28/2019 at 9:00 [id number] and postop diagnosis: ileostomy statusA. End ileostomy;B. [...] nodes are not identified in the mesentery. Parole Supervisor sections are submitted. Section code: A, client support representative section of each end of first mentionedsegment of small bowel; A2, client support representative of first mentioned segment of small bowel mucosa; A3, area of hemorrhagic mesentery of second mentioned segment of mucosa; A4, client support representative of hemorrhagic mucosa at open end of second portion of small bowel; A5, client support representative of stapled margin from second mentioned [...] 0.2 cm. No gross lesions are identified. Parole Supervisor sections are submitted. Section code: B1, proximal margin en face and tip; B2, client support representative cross section. CG/pl Performed.[id number] 06:23:00 Test Item Value Reference Range Interpretation Comments PHOSPHORUS (BEAKER) (test code = 2.7 mg/dL 2.3-4.7 604) [id number] 06:23:00 Test Item Value Reference Range Interpretation Comments MAGNESIUM (BEAKER) (test code = 1.9 mg/dL 1.6-2.6 627) BASIC METABOLIC [id number] 06:23:00 Test Item Value Reference Range Interpretation [...] S NOT APPLICABLE FOR DIALYSIS PATIEN TS. [id number] 08:20:00 Test Item Value Reference Range Interpretation Comments PHOSPHORUS (BEAKER) (test code = 2.6 mg/dL 2.3-4.7 604) [id number] 08:20:00 Test Item Value Reference Range Interpretation Comments MAGNESIUM (BEAKER) (test code = 1.8 mg/dL 1.6-2.6 627) BASIC METABOLIC [id number] 08:20:00 Test Item Value Reference Range Interpretation [...] S NOT APPLICABLE FOR DIALYSIS PATIEN TS. [id number] 06:06:00 Test Item Value Reference Range Interpretation Comments PHOSPHORUS (BEAKER) (test code = 4.1 mg/dL 2.3-4.7 604) [id number] 06:06:00 Test Item Value Reference Range Interpretation Comments MAGNESIUM (BEAKER) (test code = 1.8 mg/dL 1.6-2.6 627) BASIC METABOLIC [id number] 06:06:00 Test Item Value Reference Range Interpretation [...] S NOT APPLICABLE FOR DIALYSIS PATIEN TS. [id number] 06:03:00 Test Item Value Reference Range Interpretation Comments PHOSPHORUS (BEAKER) (test code = 4.2 mg/dL 2.3-4.7 604) [id number] 06:03:00 Test Item Value Reference Range Interpretation Comments MAGNESIUM (BEAKER) (test code = 2.0 mg/dL 1.6-2.6 627) BASIC METABOLIC [id number] 06:03:00 Test Item Value Reference Range Interpretation [...] WBC 0-0 (BEAKER) (test code = 413) [id number] 05:52:00 Test Item Value Reference Range Interpretation Comments PHOSPHORUS (BEAKER) (test code = 4.2 mg/dL 2.3-4.7 604) [id number] 05:52:00 Test Item Value Reference Range Interpretation Comments MAGNESIUM (BEAKER) (test code = 1.9 mg/dL 1.6-2.6 627) BASIC METABOLIC [id number] 05:52:00 Test Item Value Reference Range Interpretation [...] S NOT APPLICABLE FOR DIALYSIS PATIEN TS. [id number] 06:51:00 Test Item Value Reference Range Interpretation Comments PHOSPHORUS (BEAKER) (test code = 4.3 mg/dL 2.3-4.7 604) [id number] 06:51:00 Test Item Value Reference Range Interpretation Comments MAGNESIUM (BEAKER) (test code = 2.0 mg/dL 1.6-2.6 627) BASIC METABOLIC [id number] 06:51:00 Test Item Value Reference Range Interpretation [...] 0-0 (BEAKER) (test code = 413) TISSUE [id number] 11:50:00Surgical Pathology Report Case: [id number] Authorizing Provider: Mela Larson MD Collected: 03/18/2019 1827 Ordering Location: [facility] Received: 03/21/2019 0823 SERVICES Pathologist: Jordan Celaya MD Specimen: Small Bowel, NOS A. SMALL BOWEL, ILEOSTOMY PROLAPSE, TAKEDOWN: - ANASTOMOSIS SITE WITH ACTIVE CHRONIC INFLAMMATION AND FOCAL ISCHEMIC CHANGES - MUCOSAL RESECTION MARGINS, NEGATIVE FOR MALIGNANCY - ONE BENIGN LYMPH NODE (0/1) - NEGATIVE FOR DYSPLASIA OR MALIGNANCY Signing Pathologist Direct Phone Line: [phone] signed by Jordan Celaya MD on 03/22/2019 at 11:50 [id number] of ileostomyReceived in a container labeled "small [...] 0.5 to 1.2 cm in greatest dimension. Parole Supervisor sections are submitted as follows: A1-A2, mucosal resection margin, en face; A3-A6, client support representative sections of the possible ostomy stump; A7-A11, serial client support representative sections from mucosal resection margin to the possible ostomy stump; A12, two lymph nodes. TH/plPerformed.[id number] 06:58:00 Test Item Value Reference Range Interpretation Comments PHOSPHORUS (BEAKER) (test code = 3.8 mg/dL 2.3-4.7 604) [id number] 06:58:00 Test Item Value Reference Range Interpretation Comments MAGNESIUM (BEAKER) (test code = 2.0 mg/dL 1.6-2.6 627) BASIC METABOLIC [id number] 06:58:00 Test Item Value Reference Range Interpretation [...] PATIEN TS. CBC W/PLT COUNT & AUTO [id number] 05:42:00 Test Item Value Reference Range Interpretation [...] 0-1 PERCENT (BEAKER) (test code = 2801) [place], [id number] 17:42:00Reason for exam:->evaluate for colon stricture as [...] Lopezeport Verified Date/Time: 03/21/2019 17:42:21 Reading Location: [facility] C013X [facility] Consult Reading Room [id number] 03:58:00 Test Item Value Reference Range Interpretation Comments PHOSPHORUS (BEAKER) (test code = 3.0 mg/dL 2.3-4.7 604) [id number] 03:58:00 Test Item Value Reference Range Interpretation Comments MAGNESIUM (BEAKER) (test code = 2.0 mg/dL 1.6-2.6 627) BASIC METABOLIC [id number] 03:58:00 Test Item Value Reference Range Interpretation [...] PATIEN TS. CBC W/PLT COUNT & AUTO [id number] 03:20:00 Test Item Value Reference Range Interpretation [...] (BEAKER) (test code = 2801) BASIC METABOLIC [id number] 06:26:00 Test Item Value Reference Range Interpretation [...] S NOT APPLICABLE FOR DIALYSIS PATIEN TS. [id number] 06:05:00 Test Item Value Reference Range Interpretation Comments PHOSPHORUS (BEAKER) (test code = 2.2 mg/dL 2.3-4.7 L 604) [id number] 06:05:00 Test Item Value Reference Range Interpretation Comments MAGNESIUM (BEAKER) (test code = 2.0 mg/dL 1.6-2.6 627) CBC W/PLT COUNT & AUTO [id number] 05:25:00 Test Item Value Reference Range Interpretation [...] 0-1 PERCENT (BEAKER) (test code = 2801) [id number] 04:31:00 Test Item Value Reference Range Interpretation Comments PHOSPHORUS (BEAKER) (test code = 3.7 mg/dL 2.3-4.7 604) [id number] 04:31:00 Test Item Value Reference Range Interpretation Comments MAGNESIUM (BEAKER) (test code = 1.9 mg/dL 1.6-2.6 627) BASIC METABOLIC [id number] 04:31:00 Test Item Value Reference Range Interpretation [...] PATIEN TS. CBC W/PLT COUNT & AUTO [id number] 04:15:00 Test Item Value Reference Range Interpretation [...] 0-1 PERCENT (BEAKER) (test code = 2801) [id number] 06:41:00 Test Item Value Reference Range Interpretation Comments PHOSPHORUS (BEAKER) (test code = 3.1 mg/dL 2.3-4.7 604) [id number] 06:41:00 Test Item Value Reference Range Interpretation Comments MAGNESIUM (BEAKER) (test code = 1.9 mg/dL 1.6-2.6 627) BASIC METABOLIC [id number] 06:41:00 Test Item Value Reference Range Interpretation [...] PATIEN TS. CBC W/PLT COUNT & AUTO [id number] 06:36:00 Test Item Value Reference Range Interpretation [...] PERCENT (BEAKER) (test code = 2801) CT, [id number] 17:04:00No PO contrastFINAL REPORT ABDOMINAL AND PELVIS [...] MDReport Verified Date/Time: 03/17/2019 17:04:19 Reading Location: [facility] C013Y CT Body Reading Room XR ABDOMEN 2 [id number] 09:03:45XR ABDOMEN 2 VIEWSLOCATION: [id number]: Colstomy ProlapseCOMPARISON: Chest radiograph 04/15/2017, CT of [...] Nonspecific, nonobstructive bowel gas pattern.XR CHEST 1 [id number] 11:32:15EXAM: CHEST ONE VIEWINDICATION: Chest painCOMPARISON: None availableTECHNIQUE: AP view of the chest.FINDINGS: The cardiomediastinal silhouette is normal. The lungs are clearbilaterally. No pneumothoraxor pleural effusion is identified. Theosseous structures are unremarkable.IMPRESSION: No acute cardiopulmonary process.LOCATION: B98Ctoei Type and [id number] 21:21:00 Test Item Value Reference Range Interpretation Comments ABO type (test code = ABO) O Rh Type (test code = RH) Positive Comprehensive Metabolic [id number] 20:36:00 Test Item Value Reference Range Interpretation [...] the National Kidney Foundation,http ://nkd ep.nih.gov Alcohol/Ethanol, [id number] 20:36:00 Test Item Value Reference Range Interpretation Comments Alcohol, Ethyl <0.01 g/dL 0.00-0.01 N Intoxicated 0 .080 g/dL (test code = ETOH) or more Prothrombin [id number] 20:00:00 Test Item Value Reference Range Interpretation Comments PT (test code = PT) 10.10 seconds 9.78-13.35 N INR (test code = INR) 0.88 Ratio 0.6-1.2 N Partial Thromboplastin [id number] 20:00:00 Test Item Value Reference Range Interpretation Comments aPTT (test code = PTT) 31.50 seconds 24.39-37.25 N CBC with [id number] 19:50:00 Test Item Value Reference Range Interpretation [...] code = ALYMPH) 2.2 K/cumm 0.5-4.6 N [place] Abs (test code = AMONO) 0.4 K/cumm 0.0-1.2 N Eos Abs (test code = AEOS) 0.17 K/cumm 0.00-0.74 N Baso Abs (test code = ABASO) 0.0 K/cumm 0.00-0.21 N 38[address]& PELVIS W/O [id number] 17:36:28CT ABDOMEN AND PELVIS WITHOUT CONTRAST.CLINICAL HISTORY: [...]
[2022-05-20 01:50] VITALS: TEMP 98.6; O2SAT 98
[2022-05-20 02:09] VITALS: BP 108/75
== END 2022-05-18 13:53 | disposition home or self-care (01) ==
LOC: ER 12:26
DX: Z43.3 Encounter for attention to colostomy (principal)
CPT/HCPCS: 99283

== ENCOUNTER 2022-05-19 13:44 | Emergency (ER) | payer SELFPAY ==
--- NOTE | 2022-05-19 14:19 | EDPHYS ---
Physician Documentation [facility] Name: Rico Mcneill Age: 52 yrs Sex: Male : 1970 Arrival Date: 05/19/2022 Time: 13:46 Bed 26 Private MD: ED Physician Saad Alberto HPI: 05/19 14:23 This 52 yrs old Male presents to ER via EMS with complaints of Colostomy issue. snw 14:23 The patient represents for recheck after previously being evaluated for drainage and snw site evaluation of ileostomy. The patient has experienced similar episodes in the past, chronically. as noted. Historical: - Allergies: 13:50 NKDA; ld1 - PMHx: 13:50 ileostomy; ld1 - PSHx: 13:50 Small bowel resection with ileostomy; ld1 - Immunization history:: Adult Immunizations up to date, Client reports having NOT received the Covid vaccine. - Social history:: Smoking status: Patient denies any tobacco usage or history of. Patient/guardian denies using alcohol. ROS: 14:22 Constitutional: Negative for fever, chills, and weight loss, Eyes: Negative for injury, snw pain, redness, and discharge, ENT: Negative for injury, pain, and discharge, Neck: Negative for injury, pain, and swelling, Cardiovascular: Negative for chest pain, palpitations, and edema, Respiratory: Negative for shortness of breath, cough, wheezing, and pleuritic chest pain, Back: Negative for injury and pain, : Negative for injury, bleeding, discharge, and swelling, MS/Extremity: Negative for injury and deformity, Skin: Negative for injury, rash, and discoloration, Neuro: Negative for headache, weakness, numbness, tingling, and seizure, Psych: Negative for depression, anxiety, suicide ideation, homicidal ideation, and hallucinations. 14:22 Abdomen/GI: Positive for attention needed to ileostomy . Exam: 14:19 Head/Face: Normocephalic, atraumatic. Eyes: Pupils equal round and reactive to light, snw extra-ocular motions intact. Lids and lashes normal. Conjunctiva and sclera are non-icteric and not injected. Cornea within normal limits. Periorbital areas with no swelling, redness, or edema. ENT: Nares patent. No nasal discharge, no septal abnormalities noted. Tympanic membranes are normal and external auditory canals are clear. Oropharynx with no redness, swelling, or masses, exudates, or evidence of obstruction, uvula midline. Mucous membranes moist. Neck: Trachea midline, no thyromegaly or masses palpated, and no cervical lymphadenopathy. Supple, full range of motion without nuchal rigidity, or vertebral point tenderness. No Meningismus. Chest/axilla: Normal chest wall appearance and motion. Nontender with no deformity. No lesions are appreciated. Cardiovascular: Regular rate and rhythm with a normal S1 and S2. No gallops, murmurs, or rubs. Normal PMI, no JVD. No pulse deficits. Respiratory: Lungs have equal breath sounds bilaterally, clear to auscultation and percussion. No rales, rhonchi or wheezes noted. No increased work of breathing, no retractions or nasal flaring. 14:19 Back: No spinal tenderness. No costovertebral tenderness. Full range of motion. MS/ Extremity: Pulses equal, no cyanosis. Neurovascular intact. Full, normal range of motion. Neuro: Awake and alert, GCS 15, oriented to person, place, time, and situation. Cranial nerves II-XII grossly intact. Motor strength 5/5 in all extremities. Sensory grossly intact. Cerebellar exam normal. Normal gait. Psych: Awake, alert, with orientation to person, place and time. Behavior, mood, and affect are within normal limits. 14:19 Constitutional: The patient appears awake, frail. 14:19 Abdomen/GI: Inspection: thin, ileostomy open to skin surface, tissue a site healthy appearing, no cyanosis, bleeding. 14:19 Skin: Appearance: Temperature: normal temperature, Moisture: dry, leathered. Vital Signs: 13:48 BP 111 / 69; Pulse 81; Resp 18; Pulse Ox 100% on R/A; Pain 0/10; ld1 14:34 BP 102 / 69; Pulse 79; Resp 18; Pulse Ox 97% on R/A; ld1 15:46 BP 111 / 76; Pulse 81; Resp 18; Pulse Ox 100% on R/A; ld1 MDM: 14:10 Patient medically screened. snw 14:22 Data reviewed: vital signs, nurses notes. Data interpreted: Pulse oximetry: on room air snw is 100 %. Interpretation: normal. Counseling: I had a detailed discussion with the patient and/or guardian regarding: the historical points, exam findings, and any diagnostic results supporting the discharge/admit diagnosis, the need for outpatient follow up, to return to the emergency department if symptoms worsen or persist or if there are any questions or concerns that arise at home. Special discussion: Based on the history and exam findings, there is no indication for further emergent testing or inpatient evaluation. I discussed with the patient/guardian the need to see the primary care provider for further evaluation of the symptoms. Administered Medications: 14:32 Drug: NS 0.9% 1000 ml Route: IV; Rate: 1 bolus; Site: right antecubital; ld1 Disposition: 05/20 08:37 Co-signature as Attending Physician, Saad Alberto DO I was immediately available on-site ms3 in the Emergency Department for consultation in the care of the patient. . Disposition Summary: 05/19/22 14:19 Discharge Ordered Location: Home snw Condition: Stable snw Diagnosis - Encounter for attention to colostomy snw - Volume depletion, unspecified snw Followup: snw - With: Emergency Department - When: As needed - Reason: Worsening of condition Followup: snw - With: Private Physician - When: 2 - 3 days - Reason: Recheck today's complaints, Continuance of care, Re-evaluation by your physician Discharge Instructions: - Discharge Summary Sheet snw - Dehydration, Adult snw - Colostomy Home Guide, Adult snw - Rehydration, Adult snw Forms: - Medication Reconciliation Form snw - Thank You Letter snw - Antibiotic Education snw - Prescription Opioid Use snw Signatures: Belem Sibley FNP-C FNP-Csnw Saad Alberto DO DO ms3 Rosaura Lilly, RN RN ld1
--- NOTE | 2022-05-19 14:19 | ER ---
Nurse's Notes [facility] Name: Rico Mcneill Age: 52 yrs Sex: Male : 1970 Arrival Date: 05/19/2022 Time: 13:46 Bed 26 Private MD: Diagnosis: Encounter for attention to colostomy;Volume depletion, unspecified Presentation: 05/19 13:48 Chief complaint: EMS states: toned out to shell station per pt request. Pt reports ld1 being homeless and "today my colostomy bag came off, seems to be protruding out more.". Coronavirus screen: At this time, the client does not indicate any symptoms associated with coronavirus-19. Ebola Screen: No symptoms or risks identified at this time. Initial Sepsis Screen: Does the patient meet any 2 criteria? No. Patient's initial sepsis screen is negative. Does the patient have a suspected source of infection? No. Patient's initial sepsis screen is negative. Risk Assessment: Do you want to hurt yourself or someone else? Patient reports no desire to harm self or others. Onset of symptoms was May 19, 2022. 13:48 Method Of Arrival: EMS: [facility] ld1 13:48 Acuity: OCTAVIO 3 ld1 Triage Assessment: 13:50 General: Appears in no apparent distress. comfortable, Behavior is calm, cooperative, ld1 appropriate for age. Pain: Denies pain. EENT: No signs and/or symptoms were reported regarding the EENT system. Neuro: Level of Consciousness is awake, alert, obeys commands, Oriented to person, place, time, situation. Cardiovascular: Capillary refill < 3 seconds Patient's skin is warm and dry. Respiratory: Airway is patent Respiratory effort is even, unlabored. GI: Abdomen is flat, non-distended, Ileostomy site Ostomy appliance is not intact. protruding into ostomy bag. PT reports it protruding more today than ever before. : No signs and/or symptoms were reported regarding the genitourinary system. Derm: No signs and/or symptoms reported regarding the dermatologic system. Musculoskeletal: No signs and/or symptoms reported regarding the musculoskeletal system. Historical: - Allergies: 13:50 NKDA; ld1 - PMHx: 13:50 ileostomy; ld1 - PSHx: 13:50 Small bowel resection with ileostomy; ld1 - Immunization history:: Adult Immunizations up to date, Client reports having NOT received the Covid vaccine. - Social history:: Smoking status: Patient denies any tobacco usage or history of. Patient/guardian denies using alcohol. Screenin:51 Abuse screen: Denies threats or abuse. Denies injuries from another. Nutritional ld1 screening: No deficits noted. Tuberculosis screening: No symptoms or risk factors identified. Fall Risk None identified. Assessment: 13:51 Reassessment: See triage assessment. ld1 14:34 Reassessment: Patient appears in no apparent distress at this time. Patient and/or ld1 family updated on plan of care and expected duration. Pain level reassessed. Patient is alert, oriented x 3, equal unlabored respirations, skin warm/dry/pink. 15:40 Reassessment: Pt requesting to leave. C/O colostomy bag leaking from side - requested ld1 physician to look and fix it. Reapplied bag - still leaking. Instructed to put abd pad around edges - leaking stopped. Called back into room by pt - bag was removed from site per pt. Pt requested urinal and cup to put protruding colon in and demanding to leave. Notified ERP. Vital Signs: 13:48 BP 111 / 69; Pulse 81; Resp 18; Pulse Ox 100% on R/A; Pain 0/10; ld1 14:34 BP 102 / 69; Pulse 79; Resp 18; Pulse Ox 97% on R/A; ld1 15:46 BP 111 / 76; Pulse 81; Resp 18; Pulse Ox 100% on R/A; ld1 ED Course: 13:46 Patient arrived in ED. ld1 13:50 Triage completed. ld1 13:50 Arm band placed on right wrist. ld1 13:51 Patient has correct armband on for positive identification. Placed in gown. Bed in low ld1 position. Call light in reach. Side rails up X2. body and fender worker on. Pulse ox on. NIBP on. Door closed. Noise minimized. Warm blanket given. 13:51 No provider procedures requiring assistance completed. Maintain EMS IV. Dressing ld1 intact. Good blood return noted. Site clean \\T\\ dry. Gauge \\T\\ site: 20g lwrist. 14:04 Belem Sibley FNP-C is PHCP. snw 14:04 Saad Alberto DO is Attending Physician. snw 14:34 Rosaura Lilly, RN is Primary Nurse. ld1 15:47 IV discontinued, intact, bleeding controlled, No redness/swelling at site. ld1 Administered Medications: 14:32 Drug: NS 0.9% 1000 ml Route: IV; Rate: 1 bolus; Site: right antecubital; ld1 Medication: 13:51 VIS not applicable for this client. ld1 Outcome: 14:19 Discharge ordered by MD. snw 15:47 Discharged to home ambulatory. ld1 15:47 Condition: stable 15:47 Discharge instructions given to patient, Instructed on discharge instructions, follow up and referral plans. Demonstrated understanding of instructions, follow-up care. 15:47 Patient left the ED. ld1 Signatures: Belem Sibley, SITE INTERPRETER-C SITE INTERPRETER-Csnw Rosaura Lilly, RN RN ld1
[2022-05-19] MEDS ORDERED: NA CHLORIDE 0.9% 1,000 ML ONE (14:25)
--- OUTSIDE RECORDS SUMMARY | 2022-05-19 14:37 | XMS REPORT | Continuity of Care Document ---
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 Yes [id number] 4mg Take 1 [facility] 4 mg 1-15 [...] s: acute pain ondansetron 0 2021- No [id number] 4mg Take 1 [facility] 4 mg 1-15 [...] mouth 00 daily. Medical Branch vitamin 2022-0 Yes 1000ug Take 1 Univer s B-12 1,000 1-13 tablet by ity of mcg tablet 00:00: mouth [place] 00 daily. Medical Branch vitamin 2022-0 Yes 1000ug Take 1 Univer s B-12 1,000 1-13 tablet by ity of mcg tablet 00:00: mouth [place] 00 daily. Medical Branch vitamin 2022-0 2022- [...] Branch daily with meals. loperamide 2022-0 Yes [id number] 2mg Take 1 [facility] 2 mg 1-12 [...] Branch daily with meals. loperamide 2022-0 Yes [id number] 2mg Take 1 [facility] 2 mg 1-12 [...] Branch daily with meals. loperamide 2022-0 Yes [id number] 2mg Take 1 [facility] 2 mg 1-12 [...] Branch daily with meals. loperamide 2022-0 Yes [id number] 2mg Take 1 [facility] 2 mg 1-12 [...] Branch daily with meals. loperamide 2022-0 Yes [id number] 2mg Take 1 [facility] 2 mg 1-12 [...] Branch daily with meals. loperamide 2022-0 Yes [id number] 2mg Take 1 [facility] 2 mg 1-12 [...] Branch daily with meals. loperamide 2022-0 Yes [id number] 2mg Take 1 [facility] 2 mg 1-12 [...] tablet by ity of tablet 00:00: mouth [place] (three) Medical times Branch daily with meals. loperamide 2022-0 Yes [id number] 2mg Take 1 Univers 2 mg 1-12 capsule by ity of capsule 00:00: mouth 2 [place] (two) Medical times Branch daily. psyllium 2022-0 Yes 1{packe Take 1 Univ ers 3.4 gram 1-12 t} Packet by ity of packet 00:00: mouth [place] (two) Medical times Branch daily. acetaminoph 2022-0 Yes 650mg Take 2 Uni vers en 325 mg 1-12 tablets by ity of tablet 00:00: mouth [place] 00 every 6 Medical (six) Branch hours as needed for Pain (scale 1-3). ibuprofen 2022-0 Yes 600mg Take 1 Unive rs 600 mg 1-12 tablet by ity of tablet 00:00: [address] (three) Medical times Branch daily with meals. loperamide 2022-0 Yes [id number] 2mg Take 1 [facility] 2 mg 1-12 capsule by ity of capsule 00:00: mouth [place] (two) Medical times Branch daily. psyllium 2022-0 Yes 1{packe Take 1 Univ ers 3.4 gram 1-12 t} Packet by ity of packet 00:00: mouth [place] (two) Medical times Branch daily. acetaminoph 2022-0 2022- No 650mg Take 2 Un piyush en 325 mg 1-12 08-10 tablets by ity of tablet 00:00: 00:00 mouth [place] 00 :00 every 6 Medical (six) Branch hours as needed for Pain (scale 1-3). ibuprofen 2022-0 2022- No 600mg Take 1 Univ ers 600 mg 1-12 08-10 tablet by ity of tablet 00:00: 00:[address] [place] [address] 00 :00 (three) Medical times Branch daily with meals. loperamide 2022-0 2022- No [id number] 2mg Take 1 Univers 2 mg 1-12 08-10 capsule by ity of capsule 00:00: 00:[address] [place] [address] 00 :00 (two) Medical times Branch daily. psyllium 2022-0 2022- No 1{packe Take 1 Uni vers 3.4 gram 09-04 08-10 t} Packet by ity o f packet 00:00: 00:00 mouth 2 [place] 00 :00 (two) Medical times Branch daily. vitamin 2021-0 Yes 1000ug 1,000 mcg, Un piyush B-12 09-03 Oral, ity of (CYANOCOBAL 20:00: DAILY, [place]) 00 First dose Medical tablet on Thu Branch 1,000 mcg 09/03/21 at 1400, Until Discontinu ed, Routine vitamin Yes 1000ug 1,000 mcg, Un piyush -12 [...] Discontinu ed, Routine, Pain (scale 4-6) traMADoL 0 Yes 50mg 50 mg, Univers (ULTRAM) 09-03 Oral, ity of tablet 50 14:28: Q6HPRN, [place] mg 55 Starting Medical on Thu Branch 09/03/21 at 0828, Until Discontinu ed, Routine, Pain (scale 4-6) lidocaine-e 2021- No PRN, Unive rs pinephrine 09-03 Starting ity of (XYLOCAINE 14:15: 15:38 on Thu [place] WITH 00 :29 09/03/21 at Medical EPINEPHRINE 0815, Branch ) 1 Until Tue %-1:100,000 09/03/21 at injection 0938, Routine, Intra-op D5W 0.45% 2021- No IV Univers NaCl 09-03 Infusion, ity of (1/2NS) 1 L 09:45: 14:26 at 110 [place] + KCL 20 00 :39 mL/hr, Medical mEq CONTINUOUS Branch , Starting on 09/03/21 at 0345, Until 09/03/21 at 0826, Routine sulfur 2021- No [id number] 5mL 5 mL, Unive rs hexafluorid 09-02 Intravenou i ty of e microsphr 21:30: 21:30 s, ONCE, 1 [place] (LUMASON) 00 :00 dose, On Medica l injection 5 Mon Branch mL 09/02/21 at 1530, Routine
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 Restricted medication : CAMILA GREGORY [...] (NS) bolus 08-31-08 mL/hr, ity of infusion 15:15: 15:11 1,000 mL, [place] 1,000 mL 00 :00 IV Medical Infusion, Branch ONCE, 1 dose, On 08/31/21 at 0915, STAT pantoprazol 2022-0 Yes 40mg 40 mg, Univ ers e 1-08 Oral, ity of (PROTONIX) 15:00: DAILY, [place] EC tablet 00 First dose Medi mariusz 40 mg on [facility] Branch 08/31/21 at 0900, Until Discontinu ed, Routine pantoprazol 2022-0 Yes 40mg 40 mg, Univ ers e 1-08 Oral, ity of (PROTONIX) 15:00: DAILY, [place] EC tablet 00 First dose Medi mariusz 40 mg on [facility] Branch 08/31/21 at 0900, Until Discontinu ed, [...] 14:00: First dose [place] SINGLES) 00 on [facility] Medical 3.4 gram 08/31/21 at Branch packet [...] No at 125 Unive rs (NS) IV 08-31-08 mL/hr, IV ity of infusion 07:15: 08:03 Infusion, [place] 00 :43 CONTINUOUS Medical , Starting Branch on 08/31/21 at 0115, Until 08/31/21 at 0203, Routine acetaminoph 2021-0 Yes 650mg 650 mg, Un piyush en 08 Oral, ity of (TYLENOL) 06:03: Q6HPRN, [place] tablet 650 36 Starting Medic al mg on Sat Branch 08/31/21 at 0003, Until Discontinu ed, Routine, Pain (scale 1-3) acetaminoph 2021-0 Yes 650mg 650 mg, Un piyush en 08 Oral, ity of (TYLENOL) 06:03: Q6HPRN, [place] tablet 650 36 Starting Medic al mg [...] [place] 08/29/21 Branch at 1900, JOÃO acetaminoph 2021-2021- No 1000mg 1,000 mg, Univers en 08-3007 Oral, ity of (TYLENOL) 00:30: 00:20 ONCE, [...] No Univers medications -06 ity of 19:35: [address] Branch NaCl 0.9% 2020-08 Yes 10mL 10 mL, Univer s (NS) 2-12 Slow IV ity of injection 19:13: Push, PRN, [place] 10 mL 37 Starting Medical on [place] Branch 08/04/21 at 1313, Until Discontinu ed, Routine, line maintenanc e lidocaine 2020-08 Yes 5mL 5 mL, Univers 1% (PF) 2-12 Subcutaneo ity of (XYLOCAINE) 19:13: us, PRN, [place] injection 5 37 Starting Medi mariusz mL on [place] Branch 08/04/21 at 1313, Until Discontinu ed, Routine, Local anesthesia dextrose 5% 2020-08 Yes IV Univer s and 0.45% 2-12 Infusion, ity o f NaCl with 16:00: CONTINUOUS [place] KCl 40 mEq 00 , Starting Med ical 1,000 mL IV on [place] Branch Solution 08/04/21 at 1000, Until Discontinu ed, 1,000 mL, at 125 mL/hr NaCl 0.9% 2020-08- No 1000mL at 999 Uni vers (NS) bolus 2-12 12-12 mL/hr, ity of infusion 15:53: 17:17 1,000 mL, [place] 1,000 mL 00 :00 IV Medical Piggyback, Branch ONCE, 1 dose, On 08/04/21 at 1000, JOÃO D5W 0.45% 2020-08- No IV Univers NaCl + KCL 2-10 12-12 Infusion, ity of 20 mEq RTU 15:00: 15:56 CONTINUOUS [place] 20 mEq/L 00 :45 , Starting Medic al 1,000 mL IV on Thu Branch Solution 08/02/21 at 0900, Until 08/04/21 [...] Yes 4mg 4 mg, Univer s (IMODIUM 2-09 Oral, Q6H, ity o f A-D) 13:30: [...] Until Discontinu ed, Routine iopamidol 2020-08 No [id number] 100mL 100 mL, Univers (ISOVUE 10-01 Intravenou ity o f 370-500 mL) 05:14: 05:14 s, ONCE, 1 [place] injection 00 :00 dose, On Medica l 100 mL [facility] 07/30/21 at 2315, Routine morpHINE 2020-08 No 2mg 2 mg, Slow Un piyush injection 2 09-30 IV Push, ity of mg 17:00: 17:10 ONCE, 1 [place] 00 :00 dose, On Medical [facility] Branch 07/30/21 at 1115, Routine enoxaparin 2020-08 Yes 40mg 40 mg, Unive rs (LOVENOX) 09-30 Subcutaneo ity of injection 15:00: us, DAILY, [place] 40 mg 00 First dose Medical (after Branch last modificati on) on 07/30/21 at 0900, Until Discontinu ed, Routine pantoprazol 2020-08 No 40mg 40 mg, Uni vers e 09-30 Oral, ity of (PROTONIX) 15:00: 13:40 DAILY, [place] EC tablet 00 :20 First dose Medi mariusz 40 mg on [facility] Branch 07/30/21 at 0900, Until Discontinu ed, Routine loperamide 2020-08 No 4mg 4 mg, Unive rs (IMODIUM 09-30 Oral, TID, ity of A-D) 14:00: 13:19 First dose [place] capsule 4 00 :28 on [facility] Medical mg 07/30/21 at Branch 0800, Until Discontinu ed, Routine psyllium 2020-08- No 1{packe 1 Packet, Univers (METAMUCIL 2- 12-09 t} Oral, TID, it y of FIBER 14:00: 13:19 First dose [place] SINGLES) 00 :28 on Thu Medical 3.4 gram 07/30/21 at [facility] h packet 1 0800, Packet Until Discontinu ed, Routine lactated 2020-08- No 1000mL at 75 Unive rs ringers IV 2 12-10 mL/hr, ity of infusion 07:30: 13:59 1,000 mL, [place] 1,000 mL 00 :30 IV Medical Infusion, Branch CONTINUOUS , Starting on Thu07/30/21 at 0130, Until Thu08/02/21 at 0759, Routine NaCl 0.9% 2020-08- No 1000mL at 999 Uni vers (NS) bolus 09-30 12-07 mL/hr, ity of infusion 07:15: 07:17 1,000 mL, [place] 1,000 mL 00 :00 IV Medical Infusion, Branch ONCE, 1 dose, On Thu07/30/21 at 0115, STAT ondansetron 2020-08 Yes 4mg 4 mg, Slow Univers (ZOFRAN 2- IV Push, ity of (PF)) 06:10: Administer [place] injection 4 46 over 15 Medic al [...] 2-07 Oral, ity of (TYLENOL) 06:10: Q6HPRN, [place] tablet 650 40 Starting Medic al mg on Thu Branch 07/30/21 at 0010, Until Discontinu ed, Routine, Pain (scale 1-3) morpHINE 2020-08- No 4mg 4 mg, Slow Un piyush injection 4 2-07 12-07 IV Push, ity of mg 03:30: 02:55 ONCE, 1 [place] 00 :00 dose, On Medical Mon Branch 07/29/21 at 2130, STAT psyllium 2020-08 Yes [id number] 1{packe Take 1 Univers 3.4 gram 2-03 t} Packet by ity of packet 00:00: mouth 3 [place] 00 (three) Medical times Branch daily. loperamide 2020-08 Yes [id number] 4mg Take 2 Univers 2 mg 2-03 capsules ity of capsule 00:00: by mouth 3 [place] 00 (three) Medical times Branch daily. pantoprazol 2020-08 Yes [id number] 40mg Take 1 Univers e 40 mg EC 2-03 tablet by ity of tablet 00:00: mouth [place] 00 daily. Medical Branch psyllium 2020-08 Yes [id number] 1{packe Take 1 Univers 3.4 gram 2-03 t} Packet by ity of packet 00:00: mouth 3 [place] 00 (three) Medical times Branch daily. loperamide 2020-08 Yes [id number] 4mg Take 2 Univers 2 mg 2-03 capsules ity of capsule 00:00: by mouth 3 [place] 00 (three) Medical times Branch daily. pantoprazol 2020-08 Yes [id number] 40mg Take 1 Univers e 40 mg EC 2-03 tablet by ity of tablet 00:00: mouth [place] 00 daily. Medical Branch psyllium 2020-08- No [id number] 1{packe Take 1 Univers 3.4 gram 2-03 12-13 t} Packet by ity o f packet 00:00: 00:00 mouth 3 [place] 00 :00 (three) Medical times Branch daily. loperamide 2020-08- No [id number] 4mg Take 2 Univers 2 mg 2-03 12-13 capsules ity of capsule 00:00: 00:00 by mouth 3 [place] 00 :00 (three) Medical times Branch daily. pantoprazol 2020-08- No [id number] 40mg Take 1 Univers e 40 mg EC 2-03 12-13 tablet by ity of tablet 00:00: 00:00 mouth [place] 00 :00 daily. Medical Branch psyllium 2020-08- No [id number] 1{packe Take 1 Univers 3.4 gram 2-07-26 t} Packet by ity o f packet 00:00: 00:00 mouth 3 [place] 00 :00 (three) Medical times Branch daily for 90 days. loperamide 2020-08- No [id number] 4mg Take 2 Univers 2 mg 2-11 02- capsules ity of capsule 00:00: 00:00 by mouth 3 [place] 00 :00 (three) Medical times Branch daily for 90 days. pantoprazol 2020-08- No [id number] 40mg Take 1 Univers e 40 mg EC 2-07-26 tablet by ity of tablet 00:00: 00:00 mouth [place] 00 :00 daily for Medical 90 days. Branch psyllium 2020-08- No [id number] 1{packe Take 1 Univers 3.4 gram 2-07-26 t} Packet by ity o f packet 00:00: 00:00 mouth 3 [place] 00 :00 (three) Medical times Branch daily. pantoprazol 2020-08- No [id number] 40mg Take 1 Univers e 40 mg EC 2-07-26 tablet by ity of tablet 00:00: 00:00 mouth [place] 00 :00 daily. Medical Branch loperamide 2020-08- No [id number] 4mg Take 2 Univers 2 mg 2-07-26 capsules ity of capsule 00:00: 00:00 by mouth 3 [place] 00 :00 (three) Medical times Branch daily. psyllium 2020-08- No [id number] 1{packe Take 1 Univers 3.4 gram 09-26 t} Packet by ity o f packet 00:00: 00:00 mouth 3 [place] 00 :00 (three) Medical times Branch daily. loperamide 2020-08- No [id number] 4mg Take 2 Univers 2 mg 2-03 - capsules ity of capsule 00:00: 00:00 by mouth 3 [place] 00 :00 (three) Medical times Branch daily. pantoprazol 2020-08- No [id number] 40mg Take 1 Univers e 40 mg EC 2-11 02-03 tablet by ity of tablet 00:00: 00:00 mouth [place] 00 :00 daily. Medical Branch pantoprazol 2020-08 Yes 40mg 40 mg, Univ ers e 09-25 Oral, ity of (PROTONIX) 15:00: DAILY, [place] [...] 1000mL at 999 Univ ers (NS) bolus 202 mL/hr, ity of infusion 13:20: 1,000 mL, [...] Yes 4mg 4 mg, Univer s (IMODIUM 2 Oral, TID, ity o f A-D) 14:00: First dose [place] capsule 4 00 (after Medical mg last Branch modificati on) on Thu07/24/21 at 0800, Until Discontinu ed, Routine psyllium 2020-08- No 1{packe 1 Packet, Univers (METAMUCIL 207-25 t} Oral, BID, it y of FIBER [...] Oral, ity of FIBER 15:00: 11:41 DAILY, [place] SINGLES) 00 :12 First dose Medic al [...] 1-30 Oral, ity of (TYLENOL) 07:31: Q6HPRN, [place] tablet 650 37 Starting Medic al mg on Thu Branch 07/23/21 at 0131, Until Discontinu ed, Routine, Pain (scale 1-3) NaCl 0.9% 2020-08 1000mL at 999 Uni vers (NS) bolus 1-30 11-30 mL/hr, ity of infusion 06:46: 07:00 1,000 mL, [place] 1,000 mL 00 :00 IV Medical Piggyback, [place] ONCE, 1 dose, On Thu07/23/21 at 0100, STAT heparin 2020-08 Yes 5000U 5,000 Univers (porcine) 0-09 Units, ity of injection 22:00: Subcutaneo [place] 5,000 Units 00 us, Q8H, [facility] mariusz First dose Branch on [facility] 06/01/21 at 1700, Until Discontinu ed, Routine pantoprazol 2020-08 Yes 40mg 40 mg, Univ ers e 0-09 Oral, BID, ity of (PROTONIX) 14:45: First dose [place] EC tablet 00 on [facility] Medical 40 mg 06/01/21 at Branch 0945, Until Discontinu ed, Routine psyllium 2020-08 Yes 1{packe 1 Packet, U nivers (METAMUCIL 0-09 t} Oral, ity of FIBER 14:45: DAILY, [place] SINGLES) 00 First dose Medic al 3.4 gram on [facility] Branch packet 1 06/01/21 at Packet 0945, Until Discontinu ed, Routine traMADoL 2020-08 Yes 50mg 50 mg, Univers (ULTRAM) 0-09 Oral, ity of tablet 50 14:39: Q6HPRN, [place] mg 34 Starting Medical on [facility] Branch 06/01/21 at 0939, Until Discontinu ed, Routine, Pain (scale 4-6) HYDROcodone 2020-08 Yes 1{tbl} 1 tablet, Univers -acetaminop 0-09 Oral, ity of hen (NORCO 14:39: Q6HPRN, [place] 5) 5-325 mg 16 Starting Medi mariusz tablet 1 on [facility] tablet 06/01/21 at 0939, Until Discontinu ed, Routine, Pain (scale 7-10) ondansetron 2020-08 Yes 4mg 4 mg, Slow Univers (ZOFRAN 0-09 IV Push, ity of (PF)) 14:38: Q6HPRN, [place] injection 4 58 Starting Medi mariusz mg on [facility] Branch 06/01/21 at 0938, Until Discontinu ed, Routine, Nausea and Vomiting (N/V) acetaminoph 2020-08 Yes 650mg 650 mg, Un piyush en 0-09 Oral, ity of (TYLENOL) 14:36: Q6HPRN, [place] tablet 650 07 Starting Medic al mg on [facility] Branch 06/01/21 at 0936, Until Discontinu ed, [...] Thu05/31/21 at 2045, STAT iopamidol 2020-08- No [id number] 100mL 100 mL, Univers (ISOVUE 0-09 10-09 [...] Piggyback, Medical ONCE, 1 Branch dose, On 05/31/21 at 1830, STAT psyllium 0 Yes [id number] 1{packe Take 1 Univers 3.4 gram 9-29 t} Packet by ity of packet 00:00: mouth [place] 00 daily. Medical Branch psyllium Yes [id number] 1{packe Take 1 [facility] 3.4 gram 9-29 t} Packet by ity of packet 00:00: mouth [place] 00 daily. Medical Branch psyllium Yes [id number] 1{packe Take 1 Univers 3.4 gram 9-29 t} Packet by ity of packet 00:00: mouth [place] 00 daily. Medical Branch psyllium Yes [id number] 1{packe Take 1 Univers 3.4 gram 9-29 t} Packet by ity of packet 00:00: mouth [place] 00 daily. Medical Branch psyllium Yes [id number] 1{packe Take 1 [facility] 3.4 gram 9-29 t} Packet by ity of packet 00:00: mouth [place] 00 daily. Medical Branch psyllium 2020- No [id number] 1{packe Take 1 Univers 3.4 gram 9-29 12-13 t} Packet by ity o f packet 00:00: 00:00 mouth [place] 00 :00 daily. Medical Branch enoxaparin Yes 40mg 40 mg, Unive rs (LOVENOX) 05-21 Subcutaneo ity of injection 14:00: us, DAILY, [place] 40 mg 00 First dose Medical on Thu05/21/21 at 0900, Until Discontinu ed, Routine ondansetron 0 Yes 4mg 4 mg, Slow [...] Starting Medica l tablet 1 on Thu [place] tablet 05/20/21 at 1915, Until Discontinu ed, [...] 05-21 Oral, ity of (TYLENOL) 00:15: Q6HPRN, [place] tablet 650 01 Starting Medic al mg [...] 00 :00 dose, On Medi mariusz mg [facility] 05/20/21 at 1600, JOÃO morpHINE 2020- No 4mg 4 mg, Slow Un piyush injection 4 05-20 IV Push, ity of mg 21:00: 20:15 ONCE, 1 [place] 00 :00 dose, On Medical [facility] 05/20/21 at 1600, STAT NaCl 0.9% 2020- No 500mL at 999 Univ ers (NS) bolus 05-20 mL/hr, 500 it y of infusion 21:00: 21:00 mL, IV [place] 500 mL 00 :00 Piggyback, Medical ONCE, 1 Branch dose, On [facility] 05/20/21 at 1600, STAT pantoprazol Yes 40mg 40 mg, Univ ers e - Oral, BID, ity of (PROTONIX) 01:00: First dose [place] EC tablet 00 on [place] Medical 40 mg 05/09/21 at Branch 1999, Until Discontinu ed, Routine pantoprazol Yes 40mg 40 mg, Univ ers e -17 Oral, BID, ity of (PROTONIX) 01:00: First dose [place] EC tablet 00 on [place] Medical 40 mg 05/09/21 at Branch 1999, Until Discontinu ed, Routine pantoprazol 2020- No [id number] 40mg Take 1 Univers e 40 mg EC 9-16 11-16 tablet by ity of tablet 00:00: 05:59 mouth 2 [place] 00 :00 (two) Medical times Branch daily pantoprazol 2020- No [id number] 40mg Take 1 Univers e 40 mg EC 9-16 11-16 tablet by ity of tablet 00:00: 05:59 mouth 2 [place] 00 :00 (two) Medical times Branch daily pantoprazol 2020- No [id number] 40mg Take 1 Univers e 40 mg EC 9-16 11-16 tablet by ity of tablet 00:00: 05:59 mouth 2 [place] 00 :00 (two) Medical times Branch daily pantoprazol 2020- No [id number] 40mg Take 1 Univers e 40 mg EC 9-16 11-16 tablet by ity of tablet 00:00: 05:59 mouth 2 [place] 00 :00 (two) Medical times Branch daily pantoprazol 2020- No [id number] 40mg Take 1 Univers e 40 mg EC 9-16 11-16 tablet by ity of tablet 00:00: 05:59 mouth 2 [place] 00 :00 (two) Medical times Branch daily pantoprazol 2020- No [id number] 40mg Take 1 Univers e 40 mg EC 9-16 11-16 tablet by ity of tablet 00:00: 05:59 mouth 2 [place] 00 :00 (two) Medical times Branch daily pantoprazol 2020- No [id number] 40mg Take 1 Univers e 40 mg EC 9-16 11-16 tablet by ity of tablet 00:00: 05:59 mouth 2 [place] 00 :00 (two) Medical times Branch daily [...] No 1000mL at 70 Univ ers infusion 915 09-15 mL/hr, IV ity o f 1,000 mL 05:30: 12:03 Infusion, [place] 00 :16 CONTINUOUS Medical , Starting Branch on Thu05/08/21 at 0030, Until Thu05/08/21 at 0703, Routine D5W-LR IV 2020- No 1000mL at 70 Univ ers infusion 05-0815 mL/hr, IV ity o f 1,000 mL [...] ed, Routine, Nausea and Vomiting (N/V) morpHINE 2020-2020- No 4mg 4 mg, Slow Un piyush injection 4 05-08 IV Push, ity of mg 04:16: 04:15 Q4HPRN, [place] 32 :32 Starting Medical on [facility] 05/07/21 at 2316, Until Thu05/08/21 at 2315, Routine, Pain (scale 7-10) morpHINE 2020- No 4mg 4 mg, Slow Un piyush injection 4 05-08 IV Push, ity of mg 04:16: 04:15 Q4HPRN, [place] 32 :32 Starting Medical on [facility] 05/07/21 at 2316, Until Thu05/08/21 at [...] 05/07/21 at 2145, STAT iopamidol 2020-2020- No [id number] 100mL 100 mL, Univers (ISOVUE 05-08 Intravenou ity o f 370-500 mL) 02:15: 01:08 s, ONCE, 1 [place] injection 00 :00 dose, On Medica l 100 mL [facility] 05/07/21 at 2115, Routine iopamidol 0 2020- No [id number] 100mL 100 mL, Univers (ISOVUE 05-08 Intravenou ity o f 370-500 mL) 02:15: 01:08 s, ONCE, 1 [place] injection 00 :00 dose, On Medica l 100 mL [facility] 05/07/21 at 2115, Routine morpHINE 2020- No 4mg 4 mg, Slow Un piyush injection 4 05-08 IV Push, ity of mg 01:45: 00:48 ONCE, 1 [place] 00 :00 dose, On [facility] 05/07/21 at 2045, JOÃO ondansetron 2020- No 4mg 4 mg, Slow Univers (ZOFRAN 05-0815 IV Push, ity of (PF)) 01:45: 00:47 ONCE, 1 [place] injection 4 00 :00 dose, On Medi mariusz mg Tue Branch 05/07/21 at 2045, JOÃO morpHINE 2020- No 4mg 4 mg, Slow Un piyush injection 4 05-08 IV Push, ity of mg 01:45: 00:48 ONCE, 1 [place] 00 :00 dose, On Medical Tue Branch 05/07/21 at 2045, JOÃO ondansetron 2020- No 4mg 4 mg, Slow Univers (ZOFRAN 05-08 IV Push, ity of (PF)) 01:45: 00:47 ONCE, 1 [place] injection 4 00 :00 dose, On Medi mariusz mg Tue Branch 05/07/21 at 2045, JOÃO flu vaccine 2020- No .5mL 0.5 mL, Un piyush 6 months 08-24 Intramuscu ity of and up (PF) 17:30: 18:09 lar, ONCE, [place] (FLUZONE 00 :00 1 dose, Medical QUAD 08/24/20 Branch [id number] at 1130, (PF)) Routine syringe 0.5 mL sulfamethox 2020- No 1{tbl} 1 tablet, [facility] azole-trime 08-24 Oral, BID, i ty of thoprim 02:00: 13:59 7 doses, [place] (BACTRIM 00 :00 First dose Medic al DS) 800-160 on [place] Branch mg per 08/23/20 tablet 1 at 1999, tablet Last dose on 08/26/20 at 1999, JOÃO
Re ason for Anti-Infec tive: Empiric Therapy for Suspected Infection< br>Empiric Therapy Site: Skin / Soft tissue
Duration of therapy: 72 hours sulfamethox 2020- No [id number] 1{tbl} Take 1 [facility] azole-trime 08-24 tablet by it y of thoprim 00:00: 05:59 mouth 2 [place] 800-160 mg 00 :00 (two) Medical per tablet times Branch daily for 7 days. enoxaparin 2019-08 Yes 40mg 40 mg, Unive rs (LOVENOX) 2-31 Subcutaneo ity of injection 21:30: us, Q24H, [place] 40 mg 00 First dose Medical on [facility] Branch 08/23/20 at 1530, Until Discontinu ed, Routine docusate 2019-08 Yes 100mg 100 mg, Unive rs (COLACE) 2-31 Oral, ity of capsule 100 15:00: DAILY, [place] mg 00 First dose Medical on [facility] Branch 08/23/20 at 0900, Until Discontinu ed, Routine psyllium 2019-08 Yes 3{packe 3 Packet, U nivers (METAMUCIL 2-31 t} Oral, TID, ity of FIBER 14:00: First dose [place] SINGLES) 00 on [facility] Medical 3.4 gram 08/23/20 Branch packet 3 at 0800, Packet Until Discontinu ed, Routine heparin 2019-08 2020- No 5000U 5,000 Univers (porcine) 2-08-23 Units, ity of injection 14:00: 20:18 Subcutaneo [place] 5,000 Units 00 :30 us, Q12H, Med ical First dose Branch on [facility] 08/23/20 at 0800, Until Discontinu ed, [...] f tablet 6 mg 03:12: - SEE [place] [facility] NS, 1 Branch dose, Starting Thu08/22/20 [...] IV Push, ity of (PF)) 03:12: Q6HPRN, [place] injection 4 08 Starting Medi mariusz mg Wed Branch 08/22/20 at 211, Until Discontinu ed, Routine, Nausea and Vomiting (N/V) acetaminoph 2019-08 Yes 650mg 650 mg, Un piyush en 2-31 Oral, ity of (TYLENOL) 03:11: Q6HPRN, [place] tablet 650 56 Starting Medic al mg [facility] Branch 08/22/20 at 211, Until Discontinu ed, Routine, Pain (scale 1-3) NaCl 0.9% 2019-08- No 1000mL at 999 Uni vers (NS) bolus 12-31 mL/hr, ity of infusion 21:45: 00:21 1,000 mL, [place] as 1,000 mL 00 :00 IV Medical Infusion, Branch ONCE, 1 dose, [facility] 08/22/20 at 1545, JOÃO iohexol 2019-08- No 100mL 100 mL, Unive rs (OMNIPAQUE 09-09 Intravenou it y of 350 00:30: 00:14 s, ONCE, 1 [place] BULK-100 00 :00 dose, Mon Medica l mL) 07/09/20 Branch injection at 1830, 100 mL Routine cefTRIAXone 2019-08- No 1000mg 1,000 mg, Univers (ROCEPHIN) 09-08 IV ity of 1,000 mg in 23:30: 00:58 [place], [place] NaCl 0.9% 00 :00 ONCE, 1 Medical [...] 07/09/20 at 1645, JOÃO amoxicillin 2019-08 Yes [id number] 1{tbl} Take 1 Univers -clavulanat 1-16 tablet by ity of e 875-125 00:00: mouth [place] mg per 00 every 12 Medical tablet (twelve) Branch hours. amoxicillin 2019-08- No [id number] 1{tbl} Take 1 Univers -clavulanat 1-16 08-24 [...] of Therapy: 7 days ibuprofen 2019-08 Yes [id number] 800mg Take 1 U nivers 800 mg 0-08 tablet by ity of tablet 00:00: mouth [place] 00 every 6 Medical (six) Branch hours as needed for Pain (scale 4-6). loperamide 2019-08 Yes [id number] 4mg Take 2 U nivers 2 mg 0-08 capsules it[facility] of capsule 00:00: [place] (four) Medical times Branch daily. diphenoxyla 2019-08 Yes [id number] 1{tbl} Take 1 Univers te-atropine 0-08 tablet by ity of 2.5-0.025 00:00: mouth [place] mg tablet 00 every 8 Medical (eight) Branch hours. psyllium 2020-1 Yes [id number] 3{packe Take 3 Univers 3.4 gram 0-08 t} Packets by ity o f packet 00:00: mouth 3 [place] 00 (three) Medical times Branch daily. psyllium 2020-1 Yes [id number] 3{packe Take 3 Univers 3.4 gram 0-08 t} Packets by ity o f packet 00:00: mouth 3 [place] 00 (three) Medical times Branch daily. diphenoxyla 2020-1 Yes [id number] 1{tbl} Take 1 Univers te-atropine 0-08 tablet by ity of 2.5-0.025 00:00: mouth [place] mg tablet 00 every 8 Medical (eight) Branch hours. loperamide 2020-1 Yes [id number] 4mg Take 2 U nivers 2 mg 0-08 capsules ity of capsule 00:00: by mouth 4 [place] (four) Medical times Branch daily. ibuprofen 2020- Yes [id number] 800mg Take 1 U nivers 800 mg 0-08 tablet by ity of tablet 00:00: mouth [place] 00 every 6 Medical (six) Branch hours as needed for Pain (scale 4-6). psyllium 2020-1 Yes [id number] 3{packe Take 3 Univers 3.4 gram 0-08 t} Packets by ity o f packet 00:00: mouth 3 [place] 00 (three) Medical times Branch daily. diphenoxyla 2020-1 Yes [id number] 1{tbl} Take 1 [facility] te-atropine 0-08 tablet by ity of 2.5-0.025 00:00: mouth [place] mg tablet 00 every 8 Medical (eight) Branch hours. loperamide 2020-1 Yes [id number] 4mg Take 2 U nivers 2 mg 0-08 capsules ity of capsule 00:00: by mouth 4 [place] (four) Medical times Branch daily. ibuprofen 2020-1 Yes [id number] 800mg Take 1 U nivers 800 mg 0-08 tablet by ity of tablet 00:00: mouth [place] 00 every 6 Medical (six) Branch hours as needed for Pain (scale 4-6). psyllium 2020-1 Yes [id number] 3{packe Take 3 Univers 3.4 gram 0-08 t} Packets by ity o f packet 00:00: mouth 3 [place] 00 (three) Medical times Branch daily. diphenoxyla 2020-1 Yes [id number] 1{tbl} Take 1 Univers te-atropine 0-08 tablet by ity of 2.5-0.025 00:00: mouth [place] mg tablet 00 every 8 Medical (eight) Branch hours. loperamide 2020- Yes [id number] 4mg Take 2 U nivers 2 mg 0-08 capsules ity of capsule 00:00: by mouth 4 [place] (four) Medical times Branch daily. ibuprofen 2020- Yes [id number] 800mg Take 1 U nivers 800 mg 0-08 tablet by ity of tablet 00:00: mouth [place] 00 every 6 Medical (six) Branch hours as needed for Pain (scale 4-6). psyllium 2020- Yes [id number] 3{packe Take 3 Univers 3.4 gram 0-08 t} Packets by ity o f packet 00:00: mouth 3 [place] 00 (three) Medical times Branch daily. diphenoxyla 2020- Yes [id number] 1{tbl} Take 1 Univers te-atropine 0-08 tablet by ity of 2.5-0.025 00:00: mouth [place] mg tablet 00 every 8 Medical (eight) Branch hours. loperamide 2020- Yes [id number] 4mg Take 2 U nivers 2 mg 0-08 capsules ity of capsule 00:00: by mouth 4 [place] 00 (four) Medical times Branch daily. ibuprofen 2020- Yes [id number] 800mg Take 1 U nivers 800 mg 0-08 tablet by ity of tablet 00:00: mouth [place] 00 every 6 Medical (six) Branch hours as needed for Pain (scale 4-6). psyllium 2020-1 Yes [id number] 3{packe Take 3 Univers 3.4 gram 0-08 t} Packets by ity o f packet 00:00: mouth 3 [place] 00 (three) Medical times Branch daily. diphenoxyla 2020-1 Yes [id number] 1{tbl} Take 1 Univers te-atropine 0-08 tablet by ity of 2.5-0.025 00:00: mouth [place] mg tablet 00 every 8 Medical (eight) Branch hours. loperamide 2020-1 Yes [id number] 4mg Take 2 U nivers 2 mg 0-08 capsules ity of capsule 00:00: by mouth 4 [place] 00 (four) Medical times Branch daily. ibuprofen 2020-1 Yes [id number] 800mg Take 1 U nivers 800 mg 0-08 tablet by ity of tablet 00:00: mouth [place] 00 every 6 Medical (six) Branch hours as needed for Pain (scale 4-6). psyllium 2020-1 Yes [id number] 3{packe Take 3 Univers 3.4 gram 0-08 t} Packets by ity o f packet 00:00: mouth 3 [place] 00 (three) Medical times Branch daily. diphenoxyla 2020-1 Yes [id number] 1{tbl} Take 1 Univers te-atropine 0-08 tablet by ity of 2.5-0.025 00:00: mouth [place] mg tablet 00 every 8 Medical (eight) Branch hours. loperamide 2020-1 Yes [id number] 4mg Take 2 U nivers 2 mg 0-08 capsules ity of capsule 00:00: by mouth 4 [place] 00 (four) Medical times Branch daily. ibuprofen 2020-1 Yes [id number] 800mg Take 1 U nivers 800 mg 0-08 tablet by ity of tablet 00:00: mouth [place] 00 every 6 Medical (six) Branch hours as needed for Pain (scale 4-6). psyllium 2020-1 Yes [id number] 3{packe Take 3 Univers 3.4 gram 0-08 t} Packets by ity o f packet 00:00: mouth 3 [place] 00 (three) Medical times Branch daily. diphenoxyla 2020-1 Yes [id number] 1{tbl} Take 1 Univers te-atropine 0-08 tablet by ity of 2.5-0.025 00:00: mouth [place] mg tablet 00 every 8 Medical (eight) Branch hours. loperamide 2020-1 Yes [id number] 4mg Take 2 U nivers 2 mg 0-08 capsules ity of capsule 00:00: by mouth 4 [place] 00 (four) Medical times Branch daily. ibuprofen 2020-1 Yes [id number] 800mg Take 1 U nivers 800 mg 0-08 tablet by ity of tablet 00:00: mouth [place] 00 every 6 Medical (six) Branch hours as needed for Pain (scale 4-6). psyllium 2020- Yes [id number] 3{packe Take 3 Univers 3.4 gram 0-08 t} Packets by ity o f packet 00:00: mouth 3 [place] 00 (three) Medical times Branch daily. diphenoxyla 2020-1 Yes [id number] 1{tbl} Take 1 Univers te-atropine 0-08 tablet by ity of 2.5-0.025 00:00: mouth [place] mg tablet 00 every 8 Medical (eight) Branch hours. loperamide 2020- Yes [id number] 4mg Take 2 U nivers 2 mg 0-08 capsules ity of capsule 00:00: by mouth 4 [place] 00 (four) Medical times Branch daily. ibuprofen 2019- Yes [id number] 800mg Take 1 U nivers 800 mg 0-08 tablet by ity of tablet 00:00: mouth [place] 00 every 6 Medical (six) Branch hours as needed for Pain (scale 4-6). psyllium 2020- Yes [id number] 3{packe Take 3 Univers 3.4 gram 0-08 t} Packets by ity o f packet 00:00: mouth 3 [place] 00 (three) Medical times Branch daily. diphenoxyla 2020- Yes [id number] 1{tbl} Take 1 Univers te-atropine 0-08 tablet by ity of 2.5-0.025 00:00: mouth [place] mg tablet 00 every 8 Medical (eight) Branch hours. loperamide 2020- Yes [id number] 4mg Take 2 U nivers 2 mg 0-08 capsules ity of capsule 00:00: by mouth 4 [place] 00 (four) Medical times Branch daily. ibuprofen 2020- Yes [id number] 800mg Take 1 U nivers 800 mg 0-08 tablet by ity of tablet 00:00: mouth [place] 00 every 6 Medical (six) Branch hours as needed for Pain (scale 4-6). psyllium 2020-1 Yes [id number] 3{packe Take 3 Univers 3.4 gram 0-08 t} Packets by ity o f packet 00:00: mouth 3 [place] 00 (three) Medical times Branch daily. diphenoxyla 2020- Yes [id number] 1{tbl} Take 1 Univers te-atropine 0-08 tablet by ity of 2.5-0.025 00:00: mouth [place] mg tablet 00 every 8 Medical (eight) Branch hours. loperamide 2020-1 Yes [id number] 4mg Take 2 U nivers 2 mg 0-08 capsules ity of capsule 00:00: by mouth 4 [place] 00 (four) Medical times Branch daily. ibuprofen 2020-1 Yes [id number] 800mg Take 1 U nivers 800 mg 0-08 tablet by ity of tablet 00:00: mouth [place] 00 every 6 Medical (six) Branch hours as needed for Pain (scale 4-6). psyllium 2020-1 Yes [id number] 3{packe Take 3 Univers 3.4 gram 0-08 t} Packets by ity o f packet 00:00: mouth 3 [place] 00 (three) Medical times Branch daily. diphenoxyla 2020-1 Yes [id number] 1{tbl} Take 1 Univers te-atropine 0-08 tablet by ity of 2.5-0.025 00:00: mouth [place] mg tablet 00 every 8 Medical (eight) Branch hours. loperamide 2020- Yes [id number] 4mg Take 2 U nivers 2 mg 0-08 capsules ity of capsule 00:00: by mouth 4 [place] 00 (four) Medical times Branch daily. ibuprofen 2019- Yes [id number] 800mg Take 1 U nivers 800 mg 0-08 tablet by ity of tablet 00:00: mouth [place] 00 every 6 Medical (six) Branch hours as needed for Pain (scale 4-6). psyllium 2020-1 Yes [id number] 3{packe Take 3 Univers 3.4 gram 0-08 t} Packets by ity o f packet 00:00: mouth 3 [place] 00 (three) Medical times Branch daily. diphenoxyla 2020-1 Yes [id number] 1{tbl} Take 1 Univers te-atropine 0-08 tablet by ity of 2.5-0.025 00:00: mouth [place] mg tablet 00 every 8 Medical (eight) Branch hours. loperamide 2020-1 Yes [id number] 4mg Take 2 U nivers 2 mg 0-08 capsules ity of capsule 00:00: by mouth 4 [place] 00 (four) Medical times Branch daily. ibuprofen 2020-1 Yes [id number] 800mg Take 1 U nivers 800 mg 0-08 tablet by ity of tablet 00:00: mouth [place] 00 every 6 Medical (six) Branch hours as needed for Pain (scale 4-6). psyllium 2019-08 Yes [id number] 3{packe Take 3 Univers 3.4 gram 0-08 t} Packets by ity o f packet 00:00: mouth 3 [place] 00 (three) Medical times Branch daily. diphenoxyla 2019-08 Yes [id number] 1{tbl} Take 1 Univers te-atropine 0-08 tablet by ity of 2.5-0.025 00:00: mouth [place] mg tablet 00 every 8 Medical (eight) Branch hours. loperamide 2019-08 Yes [id number] 4mg Take 2 U nivers 2 mg 0-08 capsules ity of capsule 00:00: by mouth 4 [place] 00 (four) Medical times Branch daily. ibuprofen 2019-08 Yes [id number] 800mg Take 1 U nivers 800 mg 0-08 tablet by ity of tablet 00:00: mouth [place] 00 every 6 Medical (six) Branch hours as needed for Pain (scale 4-6). acetaminoph 2019-08- No [id number] 650mg Take 2 Univers en 325 mg 0-08 10-09 tablets by ity of tablet 00:00: 04:59 mouth [place] 00 :00 every 6 Medical (six) Branch hours as needed for Pain (scale 1-3). acetaminoph 2019-08- No [id number] 650mg Take 2 Univers en 325 mg 0-08 10-09 tablets by ity of tablet 00:00: 04:59 mouth [place] 00 :00 every 6 Medical (six) Branch hours as needed for Pain (scale 1-3). acetaminoph 2019-08- No [id number] 650mg Take 2 Univers en 325 mg 0-08 10-09 tablets by ity of tablet 00:00: 04:59 mouth [place] 00 :00 every 6 Medical (six) Branch hours as needed for Pain (scale 1-3). acetaminoph 2019-08- No [id number] 650mg Take 2 Univers en 325 mg 0-08 10-09 tablets by ity of tablet 00:00: 04:59 mouth [place] 00 :00 every 6 Medical (six) Branch hours as needed for Pain (scale 1-3). acetaminoph 2019-08- No [id number] 650mg Take 2 Univers en 325 mg 0-08 10-09 tablets by ity of tablet 00:00: 04:59 mouth [place] 00 :00 every 6 Medical (six) Branch hours as needed for Pain (scale 1-3). acetamino 2019-08 No [id number] 650mg Take 2 Univers en 325 mg 0-08 10-09 tablets by ity of tablet 00:00: 04:59 mouth [place] 00 :00 every 6 Medical (six) Branch hours as needed for Pain (scale 1-3). acetamino 2019-08- No [id number] 650mg Take 2 Univers en 325 mg 0-08 10-09 tablets by ity of tablet 00:00: 04:59 mouth [place] 00 :00 every 6 Medical (six) Branch hours as needed for Pain (scale 1-3). acetamino 2019-08 No [id number] 650mg Take 2 Univers en 325 mg 0-08 10-09 tablets by ity of tablet 00:00: 04:59 mouth [place] 00 :00 every 6 Medical (six) Branch hours as needed for Pain (scale 1-3). acetamino 2019-08 No [id number] 650mg Take 2 Univers en 325 mg 0-08 10-09 tablets by ity of tablet 00:00: 04:59 mouth [place] 00 :00 every 6 Medical (six) Branch hours as needed for Pain (scale 1-3). acetamino 2019-08- No [id number] 650mg Take 2 Univers en 325 mg 0-08 10-09 tablets by ity of tablet 00:00: 04:59 mouth [place] 00 :00 every 6 Medical (six) Branch hours as needed for Pain (scale 1-3). acetamino 2019-08- No [id number] 650mg Take 2 Univers en 325 mg 0-08 10-09 tablets by ity of tablet 00:00: 04:59 mouth [place] 00 :00 every 6 Medical (six) Branch hours as needed for Pain (scale 1-3). acetaminoph 2019-08 No [id number] 650mg Take 2 Univers en 325 mg 0-08 10-09 tablets by ity of tablet 00:00: 04:59 mouth [place] 00 :00 every 6 Medical (six) Branch hours as needed for Pain (scale 1-3). acetaminoph 2019-08- No [id number] 650mg Take 2 Univers en 325 mg 0-08 10-09 tablets by ity of tablet 00:00: 04:59 mouth [place] 00 :00 every 6 Medical (six) Branch hours as needed for Pain (scale 1-3). acetaminoph 2019-08 No [id number] 650mg Take 2 Univers en 325 mg 0-08 10-09 tablets by ity of tablet 00:00: 04:59 mouth [place] 00 :00 every 6 Medical (six) Branch hours as needed for Pain (scale 1-3). psyllium 2019-08 No [id number] 3{packe Take 3 Univers 3.4 gram 0-08 09-16 t} Packets by ity of packet 00:00: 00:00 mouth 3 [place] 00 :00 (three) Medical times Branch daily. diphenoxyla 2019-08 No [id number] 1{tbl} Take 1 Univers te-atropine 0-08 09-16 tablet by it y of 2.5-0.025 00:00: 00:00 mouth [place] mg tablet 00 :00 every 8 Medical (eight) Branch hours. loperamide 2019-08 No [id number] 4mg Take 2 Univers 2 mg 0-08 09-16 capsules ity of capsule 00:00: 00:00 by mouth 4 [place] 00 :00 (four) Medical times Branch daily. ibuprofen 2019-08 No [id number] 800mg Take 1 [facility] 800 mg 0-08 09-16 tablet by ity of tablet 00:00: 00:00 mouth [place] 00 :00 every 6 Medical (six) Branch hours as needed for Pain (scale 4-6). acetaminoph 2019-08 No [id number] 650mg Take 2 Univers en 325 mg 0-08 09-16 tablets by ity of tablet 00:00: 00:00 mouth [place] 00 :00 every 6 Medical (six) Branch hours as needed for Pain (scale 1-3). psyllium 2019-08 No [id number] 3{packe Take 3 Univers 3.4 gram 0-08 09-16 t} Packets by ity of packet 00:00: 00:00 mouth 3 [place] 00 :00 (three) Medical times Branch daily. diphenoxyla 2019-08 [id number] 1{tbl} Take 1 Univers te-atropine 0-08 09-16 tablet by it y of 2.5-0.025 00:00: 00:00 mouth [place] mg tablet 00 :00 every 8 Medical (eight) Branch hours. loperamide 2019-08 [id number] 4mg Take 2 Univers 2 mg 0-08 09-16 capsules ity of capsule 00:00: 00:00 by mouth 4 [place] 00 :00 (four) Medical times Branch daily. ibuprofen 2019-08 [id number] 800mg Take 1 [facility] 800 mg 0-08 09-16 tablet by ity of tablet 00:00: 00:00 mouth [place] 00 :00 every 6 Medical (six) Branch hours as needed for Pain (scale 4-6). acetaminoph 2019-08 [id number] 650mg Take 2 Univers en 325 mg 0-08 09-16 tablets by ity of tablet 00:00: 00:00 mouth [place] 00 :00 every 6 Medical (six) Branch hours as needed for Pain (scale 1-3). acetaminoph 2019-08 [id number] 650mg Take 2 Univers en 325 mg 0-08 10-08 tablets by ity of tablet 00:00: 00:00 mouth [place] 00 :00 every 6 Medical (six) Branch hours as needed for Pain (scale 1-3). ibuprofen 2019-08 [id number] 800mg Take 1 [facility] 800 mg 0-08 10-08 tablet by ity of tablet 00:00: 00:00 mouth [place] 00 :00 every 6 Medical (six) Branch hours as needed for Pain (scale 4-6). loperamide 2019-08 [id number] 4mg Take 2 Univers 2 mg 0-08 10-08 capsules ity of capsule 00:00: 00:00 by mouth 4 [place] 00 :00 (four) Medical times Branch daily. diphenoxyla 2019-08 No [id number] 1{tbl} Take 1 Univers te-atropine 0-08 10-08 tablet by it y of 2.5-0.025 00:00: 00:00 mouth [place] mg tablet 00 :00 every 8 Medical (eight) Branch hours. psyllium 2019-08 No [id number] 3{packe Take 3 Univers 3.4 gram 0-08 10-08 t} Packets by ity of packet 00:00: 00:00 mouth 3 [place] 00 :00 (three) Medical times Branch daily. iohexoL 2019- 2020- No 50mL 50 mL, [...] Medi mariusz (8 %) IV 05/29/20 at [facility] h Piggyback 4 0730, g Routine magnesium 2019- 2020- No 2g 2 g, IV Univ ers sulfate in 0-05 10-05 Piggyback, it y of water 2 13:30: 13:20 ONCE, 1 [place] gram/50 mL 00 :00 dose, Mon Medi mariusz (4 %) 05/28/20 at [place] infusion 2 0830, g Routine loperamide 2019- [...] First dose [place] SINGLES) 00 :14 on [place] Medical 3.4 gram 05/27/20 at [facility] h packet 1 1999, Packet Until Discontinu ed, Routine loperamide 2019-08 2020- No 4mg 4 mg, Unive rs (IMODIUM 0-04 10-05 Oral, TID, ity of A-D) 19:00: 12:56 First dose [place] capsule 4 00 :31 (after Medical mg last Branch modificati on) on [place] 05/27/20 at 1400, Until Discontinu ed, Routine magnesium 2019-08 2020- No 2g 2 g, IV Univ ers sulfate in 004 Piggyback, it y of water 2 13:00: 12:28 ONCE, 1 [place] gram/50 mL 00 :00 dose, [facility] mariusz (4 %) 05/27/20 at [place] infusion 2 0800, g Routine lactated 2019-08 [...] 4 g, IV Univ ers sulfate in 0- Piggyback, it y of water 4 22:15: 22:07 ONCE, 1 [place] gram/50 mL 00 :00 dose, [place] Medi mariusz (8 %) IV 05/24/20 at [facility] h Piggyback 4 1715, g Routine iohexoL 2019-08- No 50mL 50 mL, Univers (OMNIPAQUE 0-05-24 Injection, it y of 300-50 mL)) 17:45: 17:37 ONCE, 1 [place] injection 00 :00 dose, [place] Medic al 50 mL 05/24/20 at [place] 1245, Routine FENTanyl PF 2019-08- No Slow IV Un piyush (SUBLIMAZE 005-24 Push, PRN, it y of (PF)) 17:00: 17:26 Starting [place] injection 30 :44 [facility] Medical 05/24/20 at Branch 1200, Until Discontinu ed, Routine midazolam 2019-08 No IV Push, Uni vers (VERSED) 005-24 PRN, ity of injection 17:00: 17:00 Starting [place] 16 :16 [facility] Medical 05/24/20 at [place] 1200, Until Discontinu ed, Routine FENTanyl PF 2019-08- No Slow IV Un piyush (SUBLIMAZE 005-24 Push, PRN, it y of (PF)) 16:01: 16:01 Starting [place] injection 03 :03 [facility] Medical 05/24/20 at Branch 1101, Until [...] dose, Thu Medica l mL) 05/23/20 at [place] injection 1015, 100 mL Routine docusate 2019- No 100mg 100 mg, Univ ers (COLACE) 05-23 Oral, ity of capsule 100 14:00: 17:31 DAILY, [place] mg 00 :24 First dose Medical on Thu Branch 05/23/20 at 0900, Until Discontinu ed, Routine levoFLOXaci 2020-0 2020- No 750mg 750 mg, U nivers n 05-23 10-07 Oral, Q24H ity of (LEVAQUIN) 04:30: 18:00 ABX, First [place] tablet 750 00 :16 dose on Medica l mg [facility] Branch 05/22/20 at 2330, Until Discontinu ed, JOÃO
Re ason for Anti-Infec tive: Documented Infection< br>Documen dain Infection Site: Abdominal< br>Duratio n of Therapy: 7 days ondansetron 2020-0 Yes 4mg 4 mg, Slow Univers (ZOFRAN 05-23 IV Push, ity of (PF)) 03:15: Administer [place] injection 4 50 over 15 Medic al mg Minutes, Branch Q8HPRN, Starting [facility] 05/22/20 at 2215, Until Discontinu ed, Routine, Nausea and Vomiting (N/V) D5W 0.45% 2019-0 Yes IV [facility] NaCl 930 Infusion, ity of (1/2NS) 1 L 03:15: at 50 [place] + KCL 20 00 mL/hr, Medical mEq CONTINUOUS Branch , Starting [facility] 05/22/20 at 2230, Until Discontinu ed, Routine ibuprofen 2020-0 Yes 800mg 800 mg, Univ ers (IBU) 05-23 Oral, ity of tablet 800 03:13: Q6HPRN, [place] mg 38 Starting Medical [facility] Branch 05/22/20 at 2213, Until Discontinu ed, Routine, Pain (scale 4-6) acetaminoph 2019-0 Yes 650mg 650 mg, Un piyush en 05-23 Oral, ity of (TYLENOL) 03:13: Q6HPRN, [place] tablet 650 36 Starting Medic al mg [facility] Branch 05/22/20 at 2213, Until Discontinu ed, Routine, Pain (scale 1-3) morpHINE 2020-0 2020- No 4mg 4 mg, Slow Un piyush injection 4 05-22 0929 IV Push, ity of mg 03:30: 03:13 ONCE, 1 [place] 00 :00 dose, [facility] 05/21/20 at Branch 2230, STAT piperacilli 2020-0 2020- No 3.375g 3.375 g, Univers n-tazobacta 9-27 09-27 IV ity of m (ZOSYN) 10:15: 22:14 [...] 1,000 mL 00 :00 IV Medical Piggyback, [place] ONCE, 1 dose, 05/19/20 at 2245, STAT ibuprofen 2020-0 Yes [id number] 800mg Take 1 U nivers 800 mg 9-18 tablet by ity of tablet 00:00: mouth [place] 00 every 6 Medical (six) Branch hours as needed for Pain (scale 4-6). levoFLOXaci 2020-0 Yes [id number] 750mg Take 1 Univers n 750 mg 9-18 tablet by ity of tablet 00:00: mouth [place] 00 every 24 Medical (twenty-fo Branch ur) hours. loperamide 2020-0 Yes [id number] 2mg Take 1 U nivers 2 mg 9-18 capsule by ity of capsule 00:00: mouth [place] 00 daily. Medical Branch ibuprofen 2020-0 Yes [id number] 800mg Take 1 U nivers 800 mg 9-18 tablet by ity of tablet 00:00: mouth [place] 00 every 6 Medical (six) Branch hours as needed for Pain (scale 4-6). levoFLOXaci 2020-0 Yes [id number] 750mg Take 1 Univers n 750 mg 9-18 tablet by ity of tablet 00:00: mouth [place] 00 every 24 Medical (twenty-fo Branch ur) hours. loperamide 2020-0 Yes [id number] 2mg Take 1 U nivers 2 mg 9-18 capsule by ity of capsule 00:00: mouth [place] 00 daily. Medical Branch ibuprofen 2020-0 Yes [id number] 800mg Take 1 U nivers 800 mg 9-18 tablet by ity of tablet 00:00: mouth [place] 00 every 6 Medical (six) Branch hours as needed for Pain (scale 4-6). levoFLOXaci 2020-0 Yes [id number] 750mg Take 1 Univers n 750 mg 9-18 tablet by ity of tablet 00:00: mouth [place] 00 every 24 Medical (twenty-fo Branch ur) hours. loperamide 2020-0 Yes [id number] 2mg Take 1 U nivers 2 mg 9-18 capsule by ity of capsule 00:00: mouth [place] 00 daily. Medical Branch ibuprofen 2020-0 Yes [id number] 800mg Take 1 U nivers 800 mg 9-18 tablet by ity of tablet 00:00: mouth [place] 00 every 6 Medical (six) Branch hours as needed for Pain (scale 4-6). levoFLOXaci 2020-0 Yes [id number] 750mg Take 1 Univers n 750 mg 9-18 tablet by ity of tablet 00:00: mouth [place] 00 every 24 Medical (twenty-fo Branch ur) hours. loperamide 2020-0 Yes [id number] 2mg Take 1 U nivers 2 mg 9-18 capsule by ity of capsule 00:00: mouth [place] 00 daily. Medical Branch ibuprofen 2020-0 Yes [id number] 800mg Take 1 U nivers 800 mg 9-18 tablet by ity of tablet 00:00: mouth [place] 00 every 6 Medical (six) Branch hours as needed for Pain (scale 4-6). levoFLOXaci 2020-0 Yes [id number] 750mg Take 1 Univers n 750 mg 9-18 tablet by ity of tablet 00:00: mouth [place] 00 every 24 Medical (twenty-fo Branch ur) hours. loperamide 2020-0 Yes [id number] 2mg Take 1 U nivers 2 mg 9-18 capsule by ity of capsule 00:00: mouth [place] 00 daily. Medical Branch ibuprofen 2020-0 Yes [id number] 800mg Take 1 U nivers 800 mg 9-18 tablet by ity of tablet 00:00: mouth [place] 00 every 6 Medical (six) Branch hours as needed for Pain (scale 4-6). levoFLOXaci 2020-0 Yes [id number] 750mg Take 1 Univers n 750 mg 9-18 tablet by ity of tablet 00:00: mouth [place] 00 every 24 Medical (twenty-fo Branch ur) hours. loperamide 2020-0 Yes [id number] 2mg Take 1 U nivers 2 mg 9-18 capsule by ity of capsule 00:00: mouth [place] 00 daily. Medical Branch ibuprofen 2020-0 Yes [id number] 800mg Take 1 U nivers 800 mg 9-18 tablet by ity of tablet 00:00: mouth [place] 00 every 6 Medical (six) Branch hours as needed for Pain (scale 4-6). levoFLOXaci 2020-0 Yes [id number] 750mg Take 1 Univers n 750 mg 9-18 tablet by ity of tablet 00:00: mouth [place] 00 every 24 Medical (twenty-fo Branch ur) hours. loperamide 2020-0 Yes [id number] 2mg Take 1 U nivers 2 mg 9-18 capsule by ity of capsule 00:00: mouth [place] 00 daily. Medical Branch ibuprofen 2020-0 Yes [id number] 800mg Take 1 U nivers 800 mg 9-18 tablet by ity of tablet 00:00: mouth [place] 00 every 6 Medical (six) Branch hours as needed for Pain (scale 4-6). levoFLOXaci 2020-0 Yes [id number] 750mg Take 1 Univers n 750 mg 9-18 tablet by ity of tablet 00:00: mouth [place] 00 every 24 Medical (twenty-fo Branch ur) hours. loperamide 2020-0 Yes [id number] 2mg Take 1 U nivers 2 mg 9-18 capsule by ity of capsule 00:00: mouth [place] 00 daily. Medical Branch ibuprofen 2020-0 Yes [id number] 800mg Take 1 U nivers 800 mg 9-18 tablet by ity of tablet 00:00: mouth [place] 00 every 6 Medical (six) Branch hours as needed for Pain (scale 4-6). levoFLOXaci 2020-0 Yes [id number] 750mg Take 1 Univers n 750 mg 9-18 tablet by ity of tablet 00:00: mouth [place] 00 every 24 Medical (twenty-fo Branch ur) hours. loperamide 2020-0 Yes [id number] 2mg Take 1 U nivers 2 mg 9-18 capsule by ity of capsule 00:00: mouth [place] 00 daily. Medical Branch ibuprofen 2020-0 Yes [id number] 800mg Take 1 U nivers 800 mg 9-18 tablet by ity of tablet 00:00: mouth [place] 00 every 6 Medical (six) Branch hours as needed for Pain (scale 4-6). levoFLOXaci 2020-0 Yes [id number] 750mg Take 1 Univers n 750 mg 9-18 tablet by ity of tablet 00:00: mouth [place] 00 every 24 Medical (twenty-fo Branch ur) hours. loperamide 2020-0 Yes [id number] 2mg Take 1 U nivers 2 mg 9-18 capsule by ity of capsule 00:00: mouth [place] 00 daily. Medical Branch ibuprofen 2020-0 Yes [id number] 800mg Take 1 U nivers 800 mg 9-18 tablet by ity of tablet 00:00: mouth [place] 00 every 6 Medical (six) Branch hours as needed for Pain (scale 4-6). levoFLOXaci 2020-0 Yes [id number] 750mg Take 1 Univers n 750 mg 9-18 tablet by ity of tablet 00:00: mouth [place] 00 every 24 Medical (twenty-fo Branch ur) hours. loperamide 2020-0 Yes [id number] 2mg Take 1 U nivers 2 mg 9-18 capsule by ity of capsule 00:00: mouth [place] 00 daily. Medical Branch ibuprofen 2020-0 Yes [id number] 800mg Take 1 U nivers 800 mg 9-18 tablet by ity of tablet 00:00: mouth [place] 00 every 6 Medical (six) Branch hours as needed for Pain (scale 4-6). levoFLOXaci 2020-0 Yes [id number] 750mg Take 1 Univers n 750 mg 9-18 tablet by ity of tablet 00:00: mouth [place] 00 every 24 Medical (twenty-fo Branch ur) hours. loperamide 2020-0 Yes [id number] 2mg Take 1 U nivers 2 mg 9-18 capsule by ity of capsule 00:00: mouth [place] 00 daily. Medical Branch ibuprofen 2020-0 Yes [id number] 800mg Take 1 U nivers 800 mg 9-18 tablet by ity of tablet 00:00: mouth [place] 00 every 6 Medical (six) Branch hours as needed for Pain (scale 4-6). levoFLOXaci 2020-0 Yes [id number] 750mg Take 1 Univers n 750 mg 9-18 tablet by ity of tablet 00:00: mouth [place] 00 every 24 Medical (twenty-fo Branch ur) hours. loperamide 2020-0 Yes [id number] 2mg Take 1 U nivers 2 mg 9-18 capsule by ity of capsule 00:00: mouth [place] 00 daily. Medical Branch acetaminoph 2020- No [id number] 650mg Take 2 Univers en 325 mg 9-18 09-19 tablets by ity of tablet 00:00: 04:59 mouth [place] 00 :00 every 6 Medical (six) Branch hours as needed for Pain (scale 1-3). acetaminoph 2020- No [id number] 650mg Take 2 Univers en 325 mg 9-18 09-19 tablets by ity of tablet 00:00: 04:59 mouth [place] 00 :00 every 6 Medical (six) Branch hours as needed for Pain (scale 1-3). acetaminoph 2020- No [id number] 650mg Take 2 Univers en 325 mg 9-18 09-19 tablets by ity of tablet 00:00: 04:59 mouth [place] 00 :00 every 6 Medical (six) Branch hours as needed for Pain (scale 1-3). acetaminoph 2020- No [id number] 650mg Take 2 Univers en 325 mg 9-18 09-19 tablets by ity of tablet 00:00: 04:59 mouth [place] 00 :00 every 6 Medical (six) Branch hours as needed for Pain (scale 1-3). acetaminoph 2020- No [id number] 650mg Take 2 Univers en 325 mg 9-18 09-19 tablets by ity of tablet 00:00: 04:59 mouth [place] 00 :00 every 6 Medical (six) Branch hours as needed for Pain (scale 1-3). acetaminoph No [id number] 650mg Take 2 Univers en 325 mg 9-18 09-19 tablets by ity of tablet 00:00: 04:59 mouth [place] 00 :00 every 6 Medical (six) Branch hours as needed for Pain (scale 1-3). acetaminoph No [id number] 650mg Take 2 Univers en 325 mg 9-18 09-19 tablets by ity of tablet 00:00: 04:59 mouth [place] 00 :00 every 6 Medical (six) Branch hours as needed for Pain (scale 1-3). acetaminoph No [id number] 650mg Take 2 Univers en 325 mg 9-18 09-19 tablets by ity of tablet 00:00: 04:59 mouth [place] 00 :00 every 6 Medical (six) Branch hours as needed for Pain (scale 1-3). acetaminoph No [id number] 650mg Take 2 Univers en 325 mg 9-18 09-19 tablets by ity of tablet 00:00: 04:59 mouth [place] 00 :00 every 6 Medical (six) Branch hours as needed for Pain (scale 1-3). acetaminoph No [id number] 650mg Take 2 Univers en 325 mg 9-18 09-19 tablets by ity of tablet 00:00: 04:59 mouth [place] 00 :00 every 6 Medical (six) Branch hours as needed for Pain (scale 1-3). acetaminoph No [id number] 650mg Take 2 Univers en 325 mg 9-18 09-19 tablets by ity of tablet 00:00: 04:59 mouth [place] 00 :00 every 6 Medical (six) Branch hours as needed for Pain (scale 1-3). acetaminoph No [id number] 650mg Take 2 Univers en 325 mg 9-18 09-19 tablets by ity of tablet 00:00: 04:59 mouth [place] 00 :00 every 6 Medical (six) Branch hours as needed for Pain (scale 1-3). acetaminoph No [id number] 650mg Take 2 Univers en 325 mg 9-18 09-19 tablets by ity of tablet 00:00: 04:59 mouth [place] 00 :00 every 6 Medical (six) Branch hours as needed for Pain (scale 1-3). acetaminoph 2019-2019- No [id number] 650mg Take 2 Univers en 325 mg 9-18 10-08 tablets by ity of tablet 00:00: 00:00 mouth [place] 00 :00 every 6 Medical (six) Branch hours as needed for Pain (scale 1-3). ibuprofen 2019-2019- No [id number] 800mg Take 1 Univers 800 mg 9-18 10-08 tablet by ity of tablet 00:00: 00:00 mouth [place] 00 :00 every 6 Medical (six) Branch hours as needed for Pain (scale 4-6). levoFLOXaci 2019-2019- No [id number] 750mg Take 1 Univers n 750 mg 9-18 10-08 tablet by ity o f tablet 00:00: 00:00 mouth [place] 00 :00 every 24 Medical (twenty-fo Branch ur) hours. loperamide 2019-2019- No [id number] 2mg Take 1 Univers 2 mg 9-18 [...] Medi mariusz (8 %) IV 05/08/20 at [facility] h Piggyback 4 0730, g Routine loperamide 2020-0 Yes 2mg 2 mg, Univer s (IMODIUM -15 Oral, Q4H, ity o f A-D) 01:00: First dose [place] capsule 2 00 on Mon Medical mg 05/07/20 at Branch 2000, Until Discontinu ed, Routine lactated 2020-0 2020- No 1000mL at 999 [facility] ers ringers IV 05-07-14 mL/hr, ity of infusion 22:15: 22:21 1,000 mL, [place] 1,000 mL 00 :00 Intravenou Medic al s, ONCE, 1 Branch dose, [facility] 05/07/20 at 1715, Routine lactated 2020-0 2020- No 1000mL at 999 [facility] ers ringers IV 05-07-14 mL/hr, ity of infusion 13:15: 14:09 1,000 mL, [place] 1,000 mL 00 :00 Intravenou Medic al s, ONCE, 1 Branch dose, [facility] 05/07/20 at 0815, Routine HYDROcodone 2020-0 Yes [...] Mon Medi mariusz (4 %) 05/07/20 at [place] infusion 2 0800, g Routine ibuprofen 2020-0 Yes 800mg 800 mg, Univ ers (IBU) 14 Oral, ity of tablet 800 12:45: Q6HPRN, [place] mg 22 Starting Medical Mon Branch 05/07/20 at 0745, Until Discontinu ed, Routine, Pain (scale 4-6) FENTanyl PF 2020-0 2020- No Slow IV Un piyush (SUBLIMAZE 05-05 Push, PRN, it y of (PF)) 18:53: 20:05 Starting [place] injection 39 :03 Sat Medical 05/05/20 at Branch 1353, Until Discontinu ed, Routine lidocaine 2019- 2020- No PRN, Univers 1% (PF) 05-05 Starting ity of (XYLOCAINE) 18:26: 18:26 Sat [place] injection 34 :34 05/05/20 at [facility] mariusz 1326, Branch Until Discontinu ed, Routine NaCl 0.9% 2019- No CONTINUOUS U nivers (NS) bolus 05-05 PRN, ity of infusion 18:15: 18:15 Starting [place] 06 :06 Sat Medical 05/05/20 at Branch 1315, Until Discontinu ed, STAT D5W 0.45% 2019- No IV Univers NaCl 05-05 Infusion, ity of (1/2NS) 1 L 09:30: 14:01 at 100 [place] + KCL 20 00 :57 mL/hr, Medical mEq CONTINUOUS Branch , Starting 05/05/20 at 0430, Until 05/06/20 at 0901, Routine metroNIDAZO No 500mg 500 mg, IV Univers LE in NaCl 05-05 Infusion, ity of (iso-os) 07:30: 16:36 Q8H ABX, [place] (FLAGYL 00 :33 First dose Medica l I.V.) RTU on [facility] IV infusion 05/05/20 at 500 mg 0230, [...] :33 over 90 Medica l mL Minutes, [place] Piggyback Q24H ABX, 750 mg First dose on 05/05/20 at 0230, Until Discontinu ed, JOÃO
Re ason for Anti-Infec tive: Documented Infection< br>Documen dain Infection Site: Abdominal< br>Duratio n of Therapy: 7 days morpHINE 2020-0 2020- No 2mg 2 mg, Slow Un [...] 05-05 Oral, ity of (TYLENOL) 06:15: Q6HPRN, [place] tablet 650 23 Starting Medic al mg Sat Branch 05/05/20 at 0115, Until Discontinu ed, Routine, Pain (scale 1-3) NaCl 0.9% 2020-0 2020- No 1000mL at 999 Uni vers (NS) bolus 05-0512 mL/hr, ity of infusion 06:15: 07:34 1,000 [...] dose, 05/04/20 at 2230, STAT FENTanyl PF 2020- No 50ug 50 mcg, Un piyush (SUBLIMAZE 05-05 Slow IV ity o f (PF)) 03:15: 03:19 Push, [place] injection 00 :00 ONCE, 1 Medical 50 mcg dose, Fri Branch 05/04/20 at 2215, Routine ondansetron 2019- 2020- No 4mg 4 mg, Slow Univers (ZOFRAN 05-05 IV Push, ity of (PF)) 03:15: 03:18 ONCE, 1 [place] injection 4 00 :00 dose, Fri Med ical mg 05/04/20 at Branch 2215, JOÃO ketorolac 0 2020- No 60mg 60 mg, Unive rs [...] Indication s: acute pain ibuprofen 2020-0 Yes [id number] 400mg Take 2 Univers 200 mg 9-08 tablets by ity of tablet 00:00: mouth [place] 00 every 6 Medical (six) Branch hours as needed for Pain (scale 1-3). ibuprofen 2020-0 Yes [id number] 400mg Take 2 Univers 200 mg 9-08 tablets by ity of tablet 00:00: mouth [place] 00 every 6 Medical (six) Branch hours as needed for Pain (scale 1-3). ibuprofen 2020-0 Yes [id number] 400mg Take 2 Univers 200 mg 9-08 tablets by ity of tablet 00:00: mouth [place] 00 every 6 Medical (six) Branch hours as needed for Pain (scale 1-3). ibuprofen 2020-0 Yes [id number] 400mg Take 2 Univers 200 mg 9-08 tablets by ity of tablet 00:00: mouth [place] 00 every 6 Medical (six) Branch hours as needed for Pain (scale 1-3). ibuprofen 2020-0 Yes [id number] 400mg Take 2 Univers 200 mg 9-08 tablets by ity of tablet 00:00: mouth [place] 00 every 6 Medical (six) Branch hours as needed for Pain (scale 1-3). ibuprofen 2020-0 Yes [id number] 400mg Take 2 Univers 200 mg 9-08 tablets by ity of tablet 00:00: mouth [place] 00 every 6 Medical (six) Branch hours as needed for Pain (scale 1-3). ibuprofen 2020-0 Yes [id number] 400mg Take 2 Univers 200 mg 9-08 tablets by ity of tablet 00:00: mouth [place] 00 every 6 Medical (six) Branch hours as needed for Pain (scale 1-3). acetaminoph 2020- No [id number] 650mg Take 2 Univers en 05-01-09 tablets by ity of (TYLENOL) 00:00: 04:59 mouth [place] 325 mg 00 :00 every 6 Medical tablet (six) Branch hours as needed for Pain (scale 4-6). acetaminoph 2020- No [id number] 650mg Take 2 Univers en 05-01-09 tablets by ity of (TYLENOL) 00:00: 04:59 mouth [place] 325 mg 00 :00 every 6 Medical tablet (six) Branch hours as needed for Pain (scale 4-6). acetaminoph 2020- No [id number] 650mg Take 2 Univers en 05-01- tablets by ity of (TYLENOL) 00:00: 04:59 mouth [place] 325 mg 00 :00 every 6 Medical tablet (six) Branch hours as needed for Pain (scale 4-6). acetaminoph 2020- No [id number] 650mg Take 2 Univers en 05-01-09 tablets by ity of (TYLENOL) 00:00: 04:59 mouth [place] 325 mg 00 :00 every 6 Medical tablet (six) Branch hours as needed for Pain (scale 4-6). acetaminoph 2020- No [id number] 650mg Take 2 Univers en 05-01-09 tablets by ity of (TYLENOL) 00:00: 04:59 mouth [place] 325 mg 00 :00 every 6 Medical tablet (six) Branch hours as needed for Pain (scale 4-6). acetaminoph 2020- No [id number] 650mg Take 2 Univers en 05-01-09 tablets by ity of (TYLENOL) 00:00: 04:59 mouth [place] 325 mg 00 :00 every 6 Medical tablet (six) Branch hours as needed for Pain (scale 4-6). acetaminoph 2020- No [id number] 650mg Take 2 Univers en 9-08 09-09 tablets by ity of (TYLENOL) 00:00: 04:59 mouth [place] 325 mg 00 :00 every 6 Medical tablet (six) Branch hours as needed for Pain (scale 4-6). ciprofloxac 2020-0 2020- No [id number] 750mg Take 1 Univers in HCl 750 05-01 tablet by ity of mg tablet 00:00: 04:59 mouth [place] 00 :00 every 12 Medical (twelve) Branch hours for 14 days. amoxicillin 2019-2019- No [id number] 1{tbl} Take 1 Univers -clavulanat 05-01 tablet by it y of e 00:00: 04:59 mouth 2 [place] (AUGMENTIN) 00 :00 (two) Medical 875-125 mg times Branch per tablet daily for 14 days. ciprofloxac 2019-2019- No [id number] 750mg Take 1 Univers in HCl 750 05-01 tablet by ity of mg tablet 00:00: 04:59 mouth [place] 00 :00 every 12 Medical (twelve) Branch hours for 14 days. amoxicillin 2019-0 2019- No [id number] 1{tbl} Take 1 Univers -clavulanat 05-01 tablet by it y of e 00:00: 04:59 mouth 2 [place] (AUGMENTIN) 00 :00 (two) Medical 875-125 mg times Branch per tablet daily for 14 days. ciprofloxac 2019-0 2019- No [id number] 750mg Take 1 Univers in HCl 750 05-01 tablet by ity of mg tablet 00:00: 04:59 mouth [place] 00 :00 every 12 Medical (twelve) Branch hours for 14 days. amoxicillin 2019-0 2019- No [id number] 1{tbl} Take 1 Univers -clavulanat 05-01 tablet by it y of e 00:00: 04:59 mouth 2 [place] (AUGMENTIN) 00 :00 (two) Medical 875-125 mg times Branch per tablet daily for 14 days. ciprofloxac 2020-2019- No [id number] 750mg Take 1 Univers in HCl 750 05-01 tablet by ity of mg tablet 00:00: 04:59 mouth [place] 00 :00 every 12 Medical (twelve) Branch hours for 14 days. amoxicillin 2020-0 2019- No [id number] 1{tbl} Take 1 Univers -clavulanat 05-01 tablet by it y of e 00:00: 04:59 mouth 2 [place] (AUGMENTIN) 00 :00 (two) Medical 875-125 mg times Branch per tablet daily for 14 days. ciprofloxac 2019-2019- No [id number] 750mg Take 1 Univers in HCl 750 05-01 tablet by ity of mg tablet 00:00: 04:59 mouth [place] 00 :00 every 12 Medical (twelve) Branch hours for 14 days. amoxicillin 2019-2019- No [id number] 1{tbl} Take 1 Univers -clavulanat 05-01 tablet by it y of e 00:00: 04:59 mouth 2 [place] (AUGMENTIN) 00 :00 (two) Medical 875-125 mg times Branch per tablet daily for 14 days. ciprofloxac 2019-2019- No [id number] 750mg Take 1 Univers in HCl 750 05-01 tablet by ity of mg tablet 00:00: 04:59 mouth [place] 00 :00 every 12 Medical (twelve) Branch hours for 14 days. amoxicillin 2019-2019- No [id number] 1{tbl} Take 1 Univers -clavulanat 05-01 tablet by it y of e 00:00: 04:59 mouth 2 [place] (AUGMENTIN) 00 :00 (two) Medical 875-125 mg times Branch per tablet daily for 14 days. ciprofloxac 2019-2019- No [id number] 750mg Take 1 Univers in HCl 750 05-01 tablet by ity of mg tablet 00:00: 04:59 mouth [place] 00 :00 every 12 Medical (twelve) Branch hours for 14 days. amoxicillin 2019-2019- No [id number] 1{tbl} Take 1 Univers -clavulanat 05-01 tablet by it y of e 00:00: 04:59 mouth 2 [place] (AUGMENTIN) 00 :00 (two) Medical 875-125 mg times Branch per tablet daily for 14 days. acetaminoph 2019- 2020- No [id number] 650mg Take 2 Univers en 05-01-18 tablets by ity of (TYLENOL) 00:00: 00:00 mouth [place] 325 mg 00 :00 every 6 Medical tablet (six) Branch hours as needed for Pain (scale 4-6). ibuprofen 2020-0 2020- No [id number] 400mg Take 2 Univers 200 mg 05-01 tablets by ity of tablet 00:00: 00:00 mouth [place] 00 :00 every 6 Medical (six) Branch hours as needed for Pain (scale 1-3). ciprofloxac 2020-0 2020- No [id number] 750mg Take 1 Univers in HCl 750 05-01 tablet by ity of mg tablet 00:00: 00:00 mouth [place] 00 :00 every 12 Medical (twelve) Branch hours for 14 days. amoxicillin 2019-0 2020- No [id number] 1{tbl} Take 1 Univers -clavulanat 05-01 tablet by it y of e 00:00: 00:00 mouth 2 [place] (AUGMENTIN) 00 :00 (two) Medical 875-125 mg times Branch per tablet daily for 14 days. lactated 2019-0 2020- No 1000mL at 999 Univ ers ringers IV 04-2502 mL/hr, ity of infusion 14:15: 13:31 1,000 mL, [place] 1,000 mL 00 :00 Intravenou Medic al s, ONCE, 1 Branch dose, Thu04/25/20 at 0915, Routine amoxicillin 2019-0 Yes 1{tbl} 1 tablet, Univers -clavulanat 04-25 Oral, ity of e 01:00: Q12H, [place] (AUGMENTIN) 00 First dose Me dical 875-125 mg on Thu per tablet 04/24/20 at 1 tablet 1999, Until Discontinu ed, Routine
Reason for Anti-Infec tive: Empiric Therapy for Suspected Infection< br>Empiric Therapy Site: Abdominal& lt;br>Dura tion of therapy: 72 hours enoxaparin 2020-0 Yes 40mg 40 mg, Unive rs (LOVENOX) 04-24 Subcutaneo ity of injection 14:00: us, Q24H, [place] 40 mg 00 First dose Medical (after Branch last modificati on) on Thu04/24/20 at 0900, Until Discontinu ed, Routine iohexol 2019-0 2019- No 100mL 100 mL, Unive rs (OMNIPAQUE 04-23 Intravenou it y of 350 23:30: 23:30 s, ONCE, 1 [place] BULK-100 00 :00 dose, [facility] Medica l mL) 04/23/20 at Branch injection 1830, 100 mL Routine lactated 0 2019- No 1000mL at 125 Univ ers ringers IV 04-23 09-01 mL/hr, ity of infusion 23:15: 16:44 1,000 mL, [place] 1,000 mL 00 :20 IV Medical Infusion, Branch CONTINUOUS , Starting 04/23/20 at 1815, Until Tu04/24/20 at 1144, Routine NaCl 0.9% 2019- No 1000mL at 999 Uni vers (NS) bolus 04-23 mL/hr, ity of infusion 16:30: 16:14 1,000 mL, [place] 1,000 mL 00 :00 IV Medical Piggyback, Branch ONCE, 1 dose, [facility] 04/23/20 at 1130, STAT micafungin 2019- No 100mg 100 mg, IV Univers (MYCAMINE) 04-22 Piggyback, it y of 100 mg in 13:00: 15:59 Q24H ABX, [place] NaCl 0.9% 00 :00 1 dose, Medical (NS) 100 mL First dose Br anch MINI-BAG (after last reorder) on [place] 04/22/20 at 0800, 100 mL
Rest ricted use approved by: [employer]< br>Reason for Anti-Infec tive: Documented Infection< br>Documen dain Infection Site: Abdominal< br>Duratio n of Therapy: 7 days ciprofloxac 2019-0 Yes 750mg 750 mg, Un piyush in HCl 04-21 Oral, ity of (CIPRO) 23:00: Q12HA2, [place] tablet 750 00 First dose Med ical mg on Sat [place] 04/21/20 at 1800, Until Discontinu ed, JOÃO
Re ason for Anti-Infec tive: Documented Infection< br>Documen dain Infection Site: Abdominal< br>Duratio n of Therapy: 7 days aspirin 2019-0 Yes 81mg 81 mg, Univers chewable 04-21 Oral, ity of tablet 81 14:00: DAILY, [place] mg 00 First dose Medical on Sat Branch 04/21/20 at 0900, Until Discontinu ed, Routine multivitami Yes 1{tbl} 1 tablet, Univers n tablet 1 04-21 Oral, ity of tablet 14:00: DAILY, [place] 00 First dose Medical on [facility] Branch 04/21/20 at 0900, Until Discontinu ed, Routine amoxicillin 2020- No 500mg 500 mg, U nivers -pot 04-21 Oral, TID, ity of clavulanate 13:00: 14:44 First dose [place] 500 mg 00 :32 on [facility] Medical (AUGMENTIN 04/21/20 at [facility] 500) 0800, 500-125 mg Until tablet 500 Discontinu mg ed, JOÃO
Re ason for Anti-Infec tive: Documented Infection< br>Documen dain Infection Site: Abdominal< br>Duratio n of Therapy: 7 days ciprofloxac 2019- No 400mg 400 mg, IV Univers in [...] 1000, Until Thu04/19/20 at 1105, Routine ciprofloxac No 500mg 500 mg, U nivers in [...]
Rest ricted use approved by: ANTIMICROB IAL STEWARDSWY P [...] [place] 00 :03 First dose Medical on [facility] 04/17/20 at 0900, Until Discontinu ed, Routine lidocaine 2019- 2020- No PRN, Univers 1% (PF) 04-16 Starting ity of (XYLOCAINE) 21:17: 21:17 Mon [place] injection 53 :53 04/16/20 at [facility] 1617, Branch Until [facility] 04/16/20 at 1617, Routine FENTanyl PF 2019-0 2020- No Slow IV Un piyush (SUBLIMAZE 04-16 Push, PRN, it y of (PF)) 21:16: 21:16 Starting [place] injection 07 :07 [facility] 04/16/20 at Branch 1616, Until [facility] 04/16/20 at 1616, Routine midazolam 2019-0 2020- No IV Push, Uni vers (VERSED) 04-16 PRN, ity of injection 21:16: 21:16 Starting [place] 07 :07 [facility] 04/16/20 at Branch 1616, Until [facility] 04/16/20 at 1616, Routine piperacilli 2019-0 2020- No 3.375g 3.375 [...] Until Tu04/24/20 at 1252, Routine D5W 0.45% No IV Univers NaCl 04-14 Infusion, ity of (1/2NS) 1 L 11:15: 14:50 at 84 [place] + KCL 20 00 :18 mL/hr, Medical mEq CONTINUOUS Branch , Starting 04/14/20 at 0615, Until Thu04/18/20 at 0950, Routine FENTanyl PF No 25ug 25 mcg, Un piyush (SUBLIMAZE [...] 1431, Until Thu04/13/20 at 1455, Routine midazolam No IV Push, Uni vers (VERSED) 04-13 PRN, ity of injection 19:31: 19:55 Starting [place] 36 :00 Fri Medical 04/13/20 at Branch 1431, Until Thu04/13/20 at 1455, Routine DAPTOmycin No 500mg 500 mg, IV Univers (CUBICIN) 04-13 Piggyback, ity of 500 mg in 01:00: 00:59 Q24H ABX, [place] NaCl 0.9% 00 :00 4 doses, Medica l (NS) First dose Branch piggyback (after last modificati on) on [place] 04/12/20 at 1999, Last dose on Thu04/15/20 at 1999, 100 mL
Reas on for [...] 1745, Until Discontinu ed, 100 mL micafungin 2019-0 2020- No 100mg 100 mg, [...] n of Therapy: 7 days D5W 0.45% 2019-0 2020- No IV Univers NaCl 04-12 Infusion, [...] Branch injection 1630, 100 mL Routine piperacilli 2020-0 2020- No 3.375g 3.375 g, [...] dose, [place] Branch 04/12/20 at 1200, Routine
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 Restricted medication : RHETTBIA Watson D5W 0.45% 2019- No IV Univers NaCl 04-11 Infusion, ity of (1/2NS) 1 L 14:00: 21:44 at 42 [place] + KCL 20 00 :46 mL/hr, Medical mEq CONTINUOUS Branch , Starting Thu04/11/20 at 0900, Until [place] 04/12/20 at 1644, Routine pantoprazol 2019- No 40mg 40 mg, Uni vers e 04-11 Oral, ity of (PROTONIX) 14:00: 21:44 DAILY, [place] EC tablet 00 :46 First dose Medi mariusz 40 mg on Thu Branch 04/11/20 at 0900, Until Discontinu ed, Routine KCL 2019- No IV Univers (POTASSIUM 04-11 Infusion, ity [...] 0815, Until Discontinu ed, Routine enoxaparin 2019-0 2019- No 40mg 40 mg, Univ ers (LOVENOX) 04-11 Subcutaneo ity of injection 13:00: 00:44 us, Q24H, [place] 40 mg 00 :31 First dose Medical on Thu [place] 04/11/20 at 0800, Until Discontinu ed, Routine magnesium 2019- 2020- No 2g 2 g, IV Univ ers sulfate in 04-11 Piggyback, it y of water 2 11:45: 15:06 ONCE, 1 [place] gram/50 mL 00 :00 dose, Thu Medi mariusz (4 %) 04/11/20 at [place] infusion 2 0645, g Routine Total 2019- [...] Medi mariusz (8 %) IV 04/10/20 at [facility] Piggyback 4 0830, g Routine DAPTOmycin 2019- No 500mg 500 mg, IV Univers (CUBICIN) 04-10 Piggyback, ity of 500 mg in 06:00: 15:57 Q24H ABX, [place] NaCl 0.9% 00 :33 First dose Medi mariusz (NS) on Thu [place] piggyback 04/10/20 at 0100, Until Discontinu ed, 100 mL
R mitali for Anti-Infec tive: Documented Infection< br>Documen dain Infection Site: Abdominal< br>Duratio n of Therapy: 7 days
Re stricted use approved by: [employer]IT[employer]E ibuprofen 2019- 2020- No 600mg 600 mg, Uni vers (IBU) 04-10 Oral, Q8H, ity of tablet 600 03:00: 10:59 First dose [place] mg 00 :06 on [facility] 04/09/20 at Branch 2200, Until Discontinu ed, Routine micafungin 2020- No 100mg 100 mg, IV Univers (MYCAMINE) 04-10 Piggyback, it y of 100 mg in 02:45: 15:57 Q24H ABX, [place] NaCl 0.9% 00 :33 First dose Medi mariusz (NS) 100 mL on Thu [place] MINI-BAG 04/09/20 at 2145, Until Discontinu ed, [...] dose Medi mariusz 0.9% (NS) on Thu 100 mL 04/09/20 at MINI-BAG 2145, Until Discontinu ed, 100 mL
Reas on for Anti-Infec tive: Documented Infection< br>Documen dain Infection Site: Abdominal< br>Duratio n of Therapy: 7 days acetaminoph 2020- No 500mg 500 mg, U nivers en 04-09 Oral, Q6H, ity of (TYLENOL) 23:00: 10:54 First dose [place] tablet 500 00 :23 on [facility] Medical mg 04/09/20 at Branch 1800, Until [...] in 20 :43 Starting Medica l lactated [facility] ringers 04/09/20 at 1,000 mL [...] 00 :18 Mon Medical solution 04/09/20 at [facility] h 0800, Until Discontinu ed, Routine magnesium [...] modificati on) on Thu04/08/20 at 1700 acetaminoph 2020-0 2020- No 1000mg 1,000 mg, [...] No 1000mg 1,000 mg, Univers en ADULT 04-0716 IV ity of (OFIRMEV) 23:00: 14:28 Infusion, [place] injection 00 :31 Administer Medi mariusz 1,000 mg over 15 Branch Minutes, Q6H, 4 doses, First dose (after last reorder) on [facility] 04/07/20 at 1800, Last dose on [place] 04/08/20 at 1200, Routine
Indicatio n: Perioperat ector Patient D5W-LR IV 2020- No 1000mL at 60 Univ ers infusion 04-07 08-16 mL/hr, IV ity o f 1,000 mL 22:45: 15:29 Infusion, [place] 00 :52 CONTINUOUS Medical , Starting Branch [facility] 04/07/20 at 1745, Until [place] 04/08/20 at 1029, Routine Total 2019- 2020- No at 85 Univers Parenteral 04-07 08-16 mL/hr, ity of Nutrition 22:00: 22:05 2,040 mL, [place] Adult 00 :00 TPNCONTINU Medical OUS, 1 Branch dose, First dose on [facility] 04/07/20 at 1700 fluconazole 2020- No 400mg at 100 Un piyush (DIFLUCAN) 04-07 08-18 mL/hr, IV ity of IV 20:00: 01:35 Piggyback, [place] Piggyback 00 :07 Q24H ABX, Medic al 400 mg First dose Branch on [facility] 04/07/20 at 1500, Until Discontinu ed, JOÃO multivitami 2020- No 15mL 15 mL, Uni vers n (CENTRUM) 04-07 0828 Enteral, ity of solution 15 14:00: 15:31 DAILY, [place] mL 00 :33 First dose Medical (after Branch last modificati on) on [facility] 04/07/20 at 0900, Until Discontinu ed, Routine heparin 2019- 2020- No 5000U 5,000 Univers (porcine) 04-07 08-19 Units, ity of injection 11:00: 11:53 Subcutaneo [place] 5,000 Units 00 :30 us, Q8H, Medi mariusz First dose Branch on [facility] 04/07/20 at 0600, Until Discontinu ed, Routine [...] o f succ 02:00: 02:09 Q6H, First [place] (CORTEF) 50 00 :14 dose on Medic al mg in NaCl Thu Branch 0.9% (NS) 04/06/20 at piggyback 2100, Until Discontinu ed, 50 mL sodium 2020-0 Yes 1{bottl 473 mL (1 Uni vers hypochlorit 15 e} Bottle), ity of e 0.5% 01:00: Topical, [place] (DAKINS) 00 BID, First Medic al solution [...] IV ity of IV 21:15: 22:10 Piggyback, [place] piggyback 00 :00 ONCE, 1 Medical 800 mg dose, Fri Branch 04/06/20 at 1615, JOÃO hydrocortis 2019- No 100mg 100 mg, IV Univers one sod 04-06 Piggyback, ity o f succ 21:15: 22:41 ONCE, 1 [place] (CORTEF) 00 :00 dose, Fri Medica l [...] h Piggyback 4 1600, g Routine lactated 2020-0 2020- No 1000mL at 999 Univ ers ringers IV 04-06- mL/hr, ity of infusion 20:01: 20:15 1,000 mL, [place] 1,000 mL 00 :00 Intravenou Medic al s, ONCE, 1 Branch dose, Thu04/06/20 at 1515, STAT meropenem 2019-2019- No 1000mg 1,000 mg, Univers (MERREM) 04-0618 [...] n of therapy: 7 days D5W-LR IV 2020-0 2020- No 1000mL at [...] 2019- No 25ug/h 25-200 U nivers (SUBLIMAZE) 04-06-17 mcg/hr ity o f STD 2,500 17:42: [...] 00 :35 Fri Medical injection 04/06/20 at [facility] 1110, Until Thu04/06/20 at 1129, Routine, Intra-op sodium 2020-0 2020- No ONCE INTRA Univ ers bicarbonate 04-06 PROCEDURE, i ty of 8.4 % (1 16:10: 16:29 [place] mEq/mL) 00 :35 Fri Medical injection 04/06/20 at [facility] 1110, Until Thu04/06/20 at 1129, Routine, [...] 1039, Until 04/06/20 at 1129, Routine, Intra-op EPINEPHrine 2020-0 2020- No CONTINUOUS Univers 1 mg in 04-06 PRN, ity of NaCl 0.9% 15:29: 16:29 Starting [place] (NS) 00 :35 Fri Medical infusion 04/06/20 at [facility] h 1029, Until Thu04/06/20 at 1129, Routine, Intra-op EPINEPHrine 2020-0 2020- No CONTINUOUS Univers 1 mg in 04-06 PRN, ity of NaCl 0.9% 15:29: 16:29 Starting [place] (NS) 00 :35 Fri Medical infusion 04/06/20 at [facility] 1029, Until Thu04/06/20 at 1129, Routine, Intra-op piperacilli 2020-0 2020- No CONTINUOUS Univers n-tazobacta 04-06 PRN, ity of m (ZOSYN) 14:57: 16:29 Starting [place] 3.375 g in 00 :35 Fri Medical NaCl 0.9% 04/06/20 at [facility] (NS) 100 mL 0957, infusion Until Discontinu ed, 100 mL, Intra-op piperacilli 2020-0 2020- No CONTINUOUS Univers n-tazobacta 04-06 PRN, ity of m (ZOSYN) 14:57: 16:29 Starting [place] 3.375 g in 00 :35 Fri Medical NaCl 0.9% 04/06/20 at [facility] (NS) 100 mL 0957, infusion Until Discontinu ed, 100 mL, Intra-op EPINEPHrine 2020-0 2020- No ONCE INTRA Univers 1:1,000 (1 04-06 PROCEDURE, it y of mg/mL) 14:54: 16:29 Starting [place] (ADRENALIN) 00 :35 Fri Medical injection 04/06/20 at [facility] 0954, Until Discontinu ed, Routine, Intra-op EPINEPHrine 2020-0 2020- No ONCE INTRA Univers 1:1,000 (1 04-06 PROCEDURE, it y of mg/mL) 14:54: 16:29 Starting [place] (ADRENALIN) 00 :35 Fri Medical injection 04/06/20 at [facility] 0954, Until Discontinu ed, Routine, Intra-op NORepinephr 2020-0 2020- No CONTINUOUS Univers ine 04-06 PRN, ity of (LEVOPHED) 14:39: 16:29 [place] 4 mg in 00 :35 Fri Medical NaCl 0.9% 04/06/20 at [facility] (NS) 250 mL 0939, infusion Intra-op NORepinephr 2020-0 2020- No CONTINUOUS Univers ine 04-06 PRN, ity of (LEVOPHED) 14:39: 16:29 [place] 4 mg in 00 :35 [facility] Medical NaCl 0.9% 04/06/20 at [facility] (NS) 250 mL 0939, infusion Intra-op [...] of 14:15: 16:29 Starting [place] 00 :35 [facility] Medical 04/06/20 at Branch 0915, Until Thu04/06/20 at 1129, Routine, Intra-op lidocaine 2020-0 2020- No ONCE INTRA U nivers 1% 04-06 PROCEDURE, ity of (XYLOCAINE) 14:15: 16:29 Starting [place] 100 mg/10 00 :35 Fri Medical mL (1 %) 04/06/20 at [facility] h injection 0915, Until Thu04/06/20 at 1129, [...] of 14:15: 16:29 Starting [place] 00 :35 [facility] Medical 04/06/20 at Branch 0915, Until Thu04/06/20 at 1129, Routine, Intra-op lidocaine 2019-0 2020- No ONCE INTRA U nivers 1% 04-06 PROCEDURE, ity of (XYLOCAINE) 14:15: 16:29 Starting [place] 100 mg/10 00 :35 [facility] Medical mL (1 %) 04/06/20 at [facility] h injection 0915, Until Thu04/06/20 at 1129, Routine, Intra-op FENTanyl PF 2020-0 2020- No ONCE INTRA Univers (SUBLIMAZE 04-06 PROCEDURE, it y of (PF)) 14:15: 16:29 Starting [place] injection 00 :35 [facility] Medical 04/06/20 at Branch 0915, Until Thu04/06/20 at 1129, Routine, Intra-op albumin 2020-0 2020- No CONTINUOUS Uni vers (ALBUMINAR- 04-06 PRN, ity of 5) 5 % 14:10: 16:29 Starting [place] injection 00 :35 [facility] 04/06/20 at Branch 0910, Until Discontinu ed, Intra-op lactated 2020-0 2020- No CONTINUOUS Un piyush ringers IV 04-06 PRN, ity of infusion 14:10: 16:29 [place] 00 :35 [facility] Medical 04/06/20 at Branch 0910, Until Discontinu ed, Routine, Intra-op albumin 2020-0 2020- No CONTINUOUS Uni vers (ALBUMINAR- 04-06 PRN, ity of 5) 5 % 14:10: 16:29 Starting [place] injection 00 :35 [facility] 04/06/20 at Branch 0910, Until Discontinu ed, Intra-op lactated 2019-0 2020- No CONTINUOUS Un piyush ringers IV 04-06 PRN, ity of infusion 14:10: 16:29 Starting [place] 00 :35 [facility] 04/06/20 at Branch 0910, Until Discontinu ed, Routine, Intra-op lactated 2019-0 2020- No 1000mL at 999 Univ ers ringers IV 04-06 mL/hr, ity of infusion 12:30: 12:37 1,000 mL, [place] 1,000 mL 00 :00 Intravenou Medic al s, ONCE, 1 Branch dose, Thu04/06/20 at 0730, Routine methocarbam 2019- No 1000mg 1,000 mg, Univers ol 04-06 [...] Branch 0800, Until Discontinu ed, Routine acetaminoph 2019-0 2020- [...] HELENE MEDELLIN - SURGERY/GE NERAL D5W 0.45% 2019-0 2020- No IV Univers NaCl 04-04 Infusion, ity of (1/2NS) 1 L 18:00: 19:13 at 42 [place] + KCL 20 00 :30 mL/hr, Medical mEq CONTINUOUS Branch , Starting Thu04/04/20 at 1300, Until [place] 04/05/20 at 1413, Routine enoxaparin 2019-0 2020- No 40mg 40 mg, Univ ers (LOVENOX) 04-04 Subcutaneo ity of injection 14:00: 16:15 us, DAILY, [place] 40 mg 00 :46 First dose Medical (after Branch last modificati on) on Thu04/04/20 at 0900, Until Discontinu ed, Routine pantoprazol 2019- 2020- No 40mg 40 mg, Uni vers [...] Medi mariusz (8 %) IV 04/04/20 at [facility] h Piggyback 4 0715, g Routine ketorolac 2019-2019- No 30mg 30 mg, Unive rs (TORADOL) 04-04 Slow IV ity of injection 05:00: 16:23 Push, Q6H, [place] 30 mg 00 :00 3 doses, Medical First dose Branch (after last modificati on) on Thu04/04/20 at 0000, Last dose on Thu04/04/20 at 1200, Routine
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
Restricte d use approved by: HELENE MEDELLIN - SURGERY/GE NERAL heparin 2019- 2020- No 5000U 5,000 Univers (porcine) 04-03 Units, ity of injection 12:00: 12:02 Subcutaneo [place] 5,000 Units 00 :00 us, ONCE, Med ical 1 dose, Branch [facility] 04/03/20 at 0700, Routine gabapentin 2019- 2020- [...] Until 04/04/20 at 1259, Routine NaCl 0.9% 2020-0 2020- No 1000mL at 999 Uni vers (NS) bolus 04-02 08-10 mL/hr, ity of infusion 22:45: 21:48 1,000 mL, [place] 1,000 mL 00 :00 IV Medical Piggyback, Branch ONCE, 1 dose, 04/02/20 at 1745, STAT pantoprazol 2019-0 2020- No 40mg 40 mg, [...] 1915, Until Thu04/02/20 at 1816, Routine acetaminoph 2020- No 650mg 650 mg, U nivers en 04-01 Oral, ity of (TYLENOL) 23:11: 21:31 Q6HPRN, [place] tablet 650 57 :27 Starting Medic al mg [place] 04/01/20 Branch at 181, Until 04/03/20 at 1631, Routine, Pain (scale 1-3), Pain (scale 4-6) NaCl 0.9% 2020-0 2020- No 1000mL at 999 Uni vers (NS) bolus 04-01 08-10 mL/hr, ity of infusion 23:10: 00:18 1,000 mL, [place] 1,000 mL 00 :00 IV Medical Piggyback, Branch ONCE, 1 dose, [place] 04/01/20 at 181, STAT lactulose 2019-0 2020- No 15mL 15 mL, Unive rs (CEPHULAC) 04-01 Oral, ity of solution 15 16:15: 16:01 ONCE, 1 [place] mL 00 :00 dose, [place] Medical 04/01/20 at Branch 1115, Routine Polyethylen 2020-0 2020- No 17g 17 g, Univ ers e Glycol 03-31 Oral, BID ity o f 3350 15:45: 23:13 MEALS, [place] (MIRALAX) 00 :14 First dose Medi mariusz powder 17 g on Sat Branch 03/31/20 at 1045, Until Discontinu ed, Routine enoxaparin 2020-0 2020- [...] , Starting Branch 03/30/20 at 2200, Until [place] 04/01/20 at 1813, Routine ondansetron 2019-0 2020- No 4mg 4 mg, Slow Univers (ZOFRAN 03-31 IV Push, ity of (PF)) 01:51: 21:31 Q6HPRN, [place] injection 4 28 :27 Starting Medi mariusz mg 03/30/20 Branch at 2051, Until Tu04/03/20 at 1631, Routine, Nausea and Vomiting (N/V) iohexol 2020-0 2020- No 100mL 100 mL, Unive rs (OMNIPAQUE 03-31 Intravenou it y of 350 00:15: 21:08 s, ONCE, 1 [place] BULK-100 00 :00 dose, Fri Medica l mL) 03/30/20 at Branch injection 1915, 100 mL Routine ondansetron 2020-0 2020- No 4mg 4 mg, Slow Univers (ZOFRAN 03-30 IV Push, ity of (PF)) 23:15: 22:07 ONCE, 1 [place] injection 4 00 :00 dose, Fri Med ical mg 03/30/20 at Branch 1815, JOÃO FENTanyl PF 2019-0 2020- No 50ug 50 mcg, Un piyush (SUBLIMAZE 03-30- Slow IV ity o f (PF)) 23:15: [...] Thu03/28/20 at 0800, Routine metoclopram 2020-0 Yes [id number] 5mg Take 1 Univers tammi HCl 8-05 tablet by ity of (REGLAN) 5 00:00: mouth [place] mg tablet 00 every 12 Medica l (twelve) Branch hours as needed for Nausea and Vomiting (N/V) (constipat ion). metoclopram 2020-0 Yes [id number] 5mg Take 1 Univers tammi HCl 8-05 tablet by ity of (REGLAN) 5 00:00: mouth [place] mg tablet 00 every 12 Medica l (twelve) Branch hours as needed for Nausea and Vomiting (N/V) (constipat ion). metoclopram 2020-0 Yes [id number] 5mg Take 1 Univers tammi HCl 8-05 tablet by ity of (REGLAN) 5 00:00: mouth [place] mg tablet 00 every 12 Medica l (twelve) Branch hours as needed for Nausea and Vomiting (N/V) (constipat ion). metoclopram 2020-0 Yes [id number] 5mg Take 1 Univers tammi HCl 8-05 tablet by ity of (REGLAN) 5 00:00: mouth [place] mg tablet 00 every 12 Medica l (twelve) Branch hours as needed for Nausea and Vomiting (N/V) (constipat ion). metoclopram 2020-0 2020- No [id number] 5mg Take 1 Univers tammi HCl 03-28 tablet by ity of (REGLAN) 5 00:00: [...] No 1000mL at 100 Uni vers infusion 03-27-04 mL/hr, IV ity o f 1,000 mL 05:00: 18:41 Infusion, [place] 00 :45 CONTINUOUS Medical , Starting Branch Thu03/27/20 at 0000, Until Thu03/27/20 at 1341, Routine acetaminoph 2019-0 2020- No 1000mg 1,000 mg, Univers en ADULT 03-2603 IV ity of (OFIRMEV) 05:15: 04:42 Infusion, [...] Yes 4mg 4 mg, Slow Univers (ZOFRAN 8-03 IV Push, ity of (PF)) 02:46: Q6HPRN, [place] injection 4 11 Starting Medi mariusz mg [place] 03/25/20 Branch at 2146, Until Discontinu ed, Routine, Nausea and Vomiting (N/V) acetaminoph 2020-0 Yes 650mg 650 mg, Un piyush en 8-03 Oral, ity of (TYLENOL) 02:46: Q6HPRN, [place] tablet 650 05 Starting Medic al mg [place] 03/25/20 Branch at 2146, Until Discontinu ed, Routine, Pain (scale 1-3) iohexol 2020-0 2020- No 100mL 100 mL, Unive rs (OMNIPAQUE 03-26 08-03 Intravenou it y of 350 01:30: 01:30 s, ONCE, 1 [place] BULK-100 00 :00 dose, [place] Medica l mL) 03/25/20 at Branch injection 2030, 100 mL Routine NaCl 0.9% 2020-0 2020- No 1000mL at 999 Uni vers (NS) bolus 03-26 08-03 mL/hr, ity of infusion 00:45: 00:42 1,000 mL, [place] 1,000 mL 00 :00 IV Medical Infusion, Branch ONCE, 1 dose, [place] 03/25/20 at 1945, JOÃO enoxaparin 2020-0 Yes [...] IV Push, ity of (PF)) 04:05: Q6HPRN, [place] injection 4 40 Starting Medi mariusz mg Fri Branch 03/02/20 at 2305, Until Discontinu ed, Routine, Nausea and Vomiting (N/V) acetaminoph 2020-0 Yes 650mg 650 mg, Un piyush en 7-11 Oral, ity of (TYLENOL) 04:05: Q6HPRN, [place] tablet 650 30 Starting Medic al mg Thu03/02/20 at 2305, Until Discontinu ed, Routine, Pain (scale 1-3) Polyethylen 2020-0 Yes [id number] 17g Take 1 Univers e Glycol 7-07 Packet by ity of 3350 17 00:00: mouth [place] gram powder 00 daily. Medica l Branch Polyethylen 2020-0 Yes [id number] 17g Take 1 Univers e Glycol 7-07 Packet by ity of 3350 17 00:00: mouth [place] gram powder 00 daily. Medica l Branch Polyethylen 2020-0 Yes [id number] 17g Take 1 Univers e Glycol 7-07 Packet by ity of 3350 17 00:00: mouth [place] gram powder 00 daily. Medica l Branch Polyethylen 2020-0 Yes [id number] 17g Take 1 Univers e Glycol 7-07 Packet by ity of 3350 17 00:00: mouth [place] gram powder 00 daily. Medica l Branch Polyethylen 2020-0 2020- No [id number] 17g Take 1 Univers e Glycol 7-07 08-05 Packet by ity o f 3350 17 00:00: 00:00 mouth [place] gram powder 00 :00 daily. Medica l Branch Polyethylen 2020-0 Yes 17g 17 g, Unive rs e Glycol 7-06 Oral, ity of 3350 18:15: DAILY, [place] (MIRALAX) 00 First dose Medi mariusz powder 17 g on Thu02/27/20 at 1315, Until Discontinu ed, Routine enoxaparin 2020-0 Yes 40mg 40 mg, Unive rs (LOVENOX) 7-06 Subcutaneo ity of injection 14:00: us, DAILY, [place] 40 mg 00 First dose Medical on Thu02/27/20 at 0900, Until Discontinu ed, Routine polyethylen 2020-0 Yes [id number] 17g Take 17 g Univers e glycol 17 7-06 by mouth ity of gram/dose 00:00: daily. [place] powder 00 Medical Branch polyethylen 2020-0 Yes [id number] 17g Take 17 g Univers e glycol 17 7-06 by mouth ity of gram/dose 00:00: daily. [place] powder 00 [facility] polyethylen 2020-0 Yes [id number] 17g Take 17 g Univers e glycol 17 7-06 by mouth ity of gram/dose 00:00: daily. [place] powder 00 [facility] polyethylen 2020-0 Yes [id number] 17g Take 17 g Univers e glycol 17 7-06 by mouth ity of gram/dose 00:00: daily. [place] powder 00 [facility] polyethylen 2020-0 Yes [id number] 17g Take 17 g Univers e glycol 17 7-06 by mouth ity of gram/dose 00:00: daily. [place] powder 00 [facility] polyethylen 2020-0 Yes [id number] 17g Take 17 g Univers e glycol 17 7-06 by mouth ity of gram/dose 00:00: daily. [place] powder [facility] polyethylen 2020-0 Yes [id number] 17g Take 17 g Univers e glycol 17 7-06 by mouth ity of gram/dose 00:00: daily. [place] powder [facility] polyethylen 2020-0 Yes [id number] 17g Take 17 g Univers e glycol 17 7-06 by mouth ity of gram/dose 00:00: daily. [place] powder 00 [facility] polyethylen 2020-0 2020- No [id number] 17g Take 17 g Univers e glycol 17 7-06 09-08 by mouth ity of gram/dose 00:00: 00:00 daily. [place] powder 00 :00 [facility] iohexol 2020-0 2020- No 120mL 120 mL, [...] 1100, Until 02/27/20 at 1257, Routine acetaminoph 2020-0 Yes 650mg 650 mg, Un piyush en 05 Oral, ity of (TYLENOL) 15:01: Q6HPRN, [place] tablet 650 46 Starting Medic al mg 02/26/20 Branch at 1001, Until Discontinu ed, Routine, Pain (scale 1-3), Pain (scale 4-6) pantoprazol 2020-0 2020- No [id number] 40mg Take 1 Univers e 40 mg EC 6-15 09-14 tablet by ity of tablet 00:00: 04:59 mouth [place] 00 :00 daily for Medical 90 days. Branch pantoprazol 2019-0 2019- No [id number] 40mg Take 1 Univers e 40 mg EC 6-15 09-14 tablet by ity of tablet 00:00: 04:59 mouth [place] 00 :00 daily for Medical 90 days. Branch pantoprazol 2019-0 2019- No [id number] 40mg Take 1 Univers e 40 mg EC 6-15 -14 tablet by ity of tablet 00:00: 04:59 mouth [place] 00 :00 daily for Medical 90 days. Branch pantoprazol 2019-0 2019- No [id number] 40mg Take 1 Univers e 40 mg EC 6-15 -14 tablet by ity of tablet 00:00: 04:59 mouth [place] 00 :00 daily for Medical 90 days. Branch pantoprazol 2019-0 2019- No [id number] 40mg Take 1 Univers e 40 mg EC 6-15 -14 tablet by ity of tablet 00:00: 04:59 mouth [place] 00 :00 daily for Medical 90 days. Branch pantoprazol 2019-2019- No [id number] 40mg Take 1 Univers e 40 mg EC 6-15 -14 tablet by ity of tablet 00:00: 04:59 mouth [place] 00 :00 daily for Medical 90 days. Branch pantoprazol 2019-0 2019- No [id number] 40mg Take 1 Univers e 40 mg EC 6-15 09-14 tablet by ity of tablet 00:00: 04:59 mouth [place] 00 :00 daily for Medical 90 days. Branch pantoprazol 2019-0 2020- No [id number] 40mg Take 1 Univers e 40 mg EC 6-15 09-14 tablet by ity of tablet 00:00: 04:59 mouth [place] 00 :00 daily for Medical 90 days. Branch pantoprazol 2019-0 2019- No [id number] 40mg Take 1 Univers e 40 mg EC 6-15 09-14 tablet by ity of tablet 00:00: 04:59 mouth [place] 00 :00 daily for Medical 90 days. Branch pantoprazol 2020-0 2020- No [id number] 40mg Take 1 Univers e 40 mg EC 6-15 09-14 tablet by ity of tablet 00:00: 04:59 mouth [place] 00 :00 daily for Medical 90 days. Branch pantoprazol 2020-0 2020- No [id number] 40mg Take 1 Univers e 40 mg EC 6-15 09-14 tablet by ity of tablet 00:00: 04:59 mouth [place] 00 :00 daily for Medical 90 days. Branch pantoprazol 2020-0 2020- No [id number] 40mg Take 1 Univers e 40 mg EC 6-15 09-14 tablet by ity of tablet 00:00: 04:59 mouth [place] 00 :00 daily for Medical 90 days. Branch pantoprazol 2020-0 2020- No [id number] 40mg Take 1 Univers e 40 mg EC 6-15 09-08 tablet by ity of tablet 00:00: 00:00 mouth [place] 00 :00 daily for Medical 90 days. Branch docusate 2020-0 2020- No [id number] 100mg Take 1 Univers 100 mg 6-14 09-13 capsule by ity of capsule 00:00: 04:59 mouth 2 [place] 00 :00 (two) Medical times Branch daily for 90 days. docusate 2020-0 2020- No [id number] 100mg Take 1 Univers 100 mg 6-14 09-13 capsule by ity of capsule 00:00: 04:59 mouth 2 [place] 00 :00 (two) Medical times Branch daily for 90 days. docusate 2020-0 2020- No [id number] 100mg Take 1 Univers 100 mg 6-14 09-13 capsule by ity of capsule 00:00: 04:59 mouth 2 [place] 00 :00 (two) Medical times Branch daily for 90 days. docusate 2020-0 2020- No [id number] 100mg Take 1 Univers 100 mg 6-14 09-13 capsule by ity of capsule 00:00: 04:59 mouth 2 [place] 00 :00 (two) Medical times Branch daily for 90 days. docusate 2020-0 2020- No [id number] 100mg Take 1 Univers 100 mg 6-14 09-13 capsule by ity of capsule 00:00: 04:59 mouth 2 [place] 00 :00 (two) Medical times Branch daily for 90 days. docusate 2020-0 2020- No [id number] 100mg Take 1 Univers 100 mg 6-14 09-13 capsule by ity of capsule 00:00: 04:59 mouth 2 [place] 00 :00 (two) Medical times Branch daily for 90 days. docusate 2020-0 2020- No [id number] 100mg Take 1 Univers 100 mg 6-14 09-13 capsule by ity of capsule 00:00: 04:59 mouth 2 [place] 00 :00 (two) Medical times Branch daily for 90 days. docusate 2020-0 2020- No [id number] 100mg Take 1 Univers 100 mg 6-14 09-13 capsule by ity of capsule 00:00: 04:59 mouth 2 [place] 00 :00 (two) Medical times Branch daily for 90 days. docusate 2020-0 2020- No [id number] 100mg Take 1 Univers 100 mg 6-14 09-13 capsule by ity of capsule 00:00: 04:59 mouth 2 [place] 00 :00 (two) Medical times Branch daily for 90 days. docusate 2020-0 2020- No [id number] 100mg Take 1 Univers 100 mg 6-14 09-13 capsule by ity of capsule 00:00: 04:59 mouth 2 [place] 00 :00 (two) Medical times Branch daily for 90 days. docusate 2020-0 2020- No [id number] 100mg Take 1 Univers 100 mg 6-14 09-13 capsule by ity of capsule 00:00: 04:59 mouth 2 [place] 00 :00 (two) Medical times Branch daily for 90 days. docusate 2020-0 2020- No [id number] 100mg Take 1 Univers 100 mg 6-14 09-13 capsule by ity of capsule 00:00: 04:59 mouth 2 [place] 00 :00 (two) Medical times Branch daily for 90 days. docusate 2020-0 2020- No [id number] 100mg Take 1 Univers 100 mg 6-14 09-08 capsule by ity of capsule 00:00: 00:00 mouth 2 [place] 00 :00 (two) Medical times Branch daily [...] 40 mg 00 First dose Medical on [facility] 01/29/20 at 0900, Until Discontinu ed, Routine docusate 2020-0 Yes 100mg 100 mg, Unive rs (COLACE) 01-28 Oral, ity of capsule 100 14:00: DAILY, [place] mg 00 First dose Medical on [facility] 01/29/20 at 0900, Until Discontinu ed, Routine levothyroxi 2020-0 Yes 50ug 50 mcg, Uni vers ne 01-28 Oral, ity of (SYNTHROID) 11:00: QAM-0600, [place] tablet 50 00 First dose Medi mariusz mcg on [facility] 01/29/20 at 0600, Until Discontinu ed, Routine simethicone 2020-0 Yes 80mg 80 mg, Univ ers (GAS RELIEF 01-28 Oral, ity of (SIMETHICON 04:45: PC+HS, [place] E)) 00 First dose Medical chewable on [facility] tablet 80 01/28/20 at mg 2345, Until Discontinu ed, Routine D5W IV 2020-0 2020- No 1000mL at 50 Univers infusion 01-28-14 mL/hr, IV ity o f 1,000 mL 03:45: 18:41 Infusion, [place] 00 :31 CONTINUOUS Medical , Starting Branch [facility] 01/28/20 at 2245, Until [place] 02/05/20 at 1341, Routine bisacodyL 2020-0 2020- No 10mg 10 mg, Unive rs (DULCOLAX) 01-2807 Rectal, ity o f suppository 03:00: 02:52 ONCE, 1 [place] 10 mg 00 :00 dose, [facility] Medical 01/28/20 at Branch 2200, Routine ondansetron 2020-0 Yes 4mg 4 mg, Slow Univers (ZOFRAN 01-28 IV Push, ity of (PF)) 01:32: Q6HPRN, [place] injection 4 44 Starting Medi mariusz mg 01/28/20 Branch at 2032, Until Discontinu ed, Routine, Nausea and Vomiting (N/V) traMADol 2020-0 2020- No 50mg 50 mg, Univer s (ULTRAM) 01-28 Oral, ity of tablet 50 01:32: 01:31 Q8HPRN, [place] mg 25 :25 Starting Medical 01/28/20 Branch at 2031, Until 01/30/20 at 2030, Routine, Pain (scale 4-6) acetaminoph 2020-0 Yes 650mg 650 mg, Un piyush en 01-28 Oral, ity of (TYLENOL) 01:32: Q6HPRN, [place] tablet 650 14 Starting Medic al mg [facility] 01/28/20 Branch at 2031, Until Discontinu ed, Routine, Pain (scale 1-3) morpHINE 2020-0 2020- No 4mg 4 mg, Slow Un piyush injection 4 01-28 IV Push, ity of mg 00:45: 23:55 ONCE, 1 [place] 00 :00 dose, Sat Medical 01/28/20 at Branch 1945, STAT iohexol 2020-0 2020- No 100mL 100 mL, Unive rs (OMNIPAQUE 01-28 Intravenou it y of 350 00:00: 00:00 s, ONCE, 1 [place] BULK-100 00 :00 dose, Sat Medica l mL) 01/28/20 at [place] injection 1900, 100 mL Routine ondansetron 2020-0 [...] IV Push, ity of mg 06:14: Q6HPRN, [place] 00 Starting Medical 01/25/20 Branch at 0114, Until Discontinu ed, Routine, Pain (scale 7-10) proCHLORper Yes 10mg 10 mg, Univ ers azine 01-24 Slow IV ity of (COMPAZINE) 06:12: Push, [place] injection 17 Q6HPRN, Medical 10 mg Starting Branch 01/25/20 at 0112, Until Discontinu ed, Routine, Nausea and Vomiting (N/V) iohexol 2019- No 100mL 100 mL, Unive rs (OMNIPAQUE 01-24 Intravenou it y of 350 02:15: 02:11 s, ONCE, 1 [place] BULK100 00 :00 dose, Tue Medica l mL) 01/24/20 at [place] injection 5, 100 mL Routine morpHINE 2019- No 4mg 4 mg, Slow Un piyush injection 4 01-24 IV Push, ity of mg 01:45: 00:43 ONCE, 1 [place] 00 :00 dose, Tue Medical 01/24/20 at Branch 2044, Routine ondansetron 2019- No 4mg 4 mg, Slow Univers (ZOFRAN 01-24 IV Push, ity of (PF)) 00:45: 00:58 Administer [place] injection 4 00 :00 over 15 Medic al mg Minutes, Branch ONCE, 1 dose, [facility] 01/24/20 at 1945, STAT NaCl 0.9% 2020- No 1000mL at 999 Uni vers (NS) bolus 01-24 mL/hr, ity of infusion 00:45: 01:15 1,000 mL, [place] 1,000 mL 00 :00 IV Medical Infusion, [place] ONCE, 1 dose, [facility] 01/24/20 at 1945, JOÃO mineral oil 2020- No [id number] 30mL Take 30 mL Univers oral liquid -20 05-05 by mouth ity of 00:00: 04:59 daily for [place] 00 :00 14 days. Medical Branch tamsulosin [...] QD Take 1 [place] n (DAILY 04-14 05-21 abuse, in tablet by Health VITES) 00:00: 00:00 remission mouth tablet 00 :00 daily. 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 multivitami 2021- No Alcohol 1{tbl} QD Take 1 [place] n (DAILY 04-14 05-21 abuse, in tablet by [facility] [facility]) 00:00: 00:00 remission mouth tablet 00 :00 daily. thiamine, 2021- No Alcohol 100mg QD Take 1 H arris B-1, 100 mg 04-14 05-21 abuse, in tablet by [facility] tablet 00:00: 00:00 remission mouth 00 :00 daily. multivitami 2021- No Alcohol 1{tbl} QD Take 1 [facility] (DAILY 04-14 05-21 abuse, in tablet by [facility] [facility]) 00:00: 00:00 remission mouth tablet 00 :00 daily. thiamine, 2021- No Alcohol 100mg QD Take 1 H arris B-1, 100 mg 04-14 05-21 abuse, in tablet by Health tablet 00:00: 00:00 remission mouth 00 :00 daily. multivitami 2021- No Alcohol 1{tbl} QD Take 1 [facility] (DAILY 04-14 05-21 abuse, in tablet by [facility] [facility]) 00:00: 00:00 remission mouth tablet 00 :00 daily. 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 multivitami 2021- No Alcohol 1{tbl} QD Take 1 [facility] n (DAILY 8 05-21 abuse, in tablet by [facility]) 00:00: 00:00 remission mouth tablet 00 :00 daily. 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 multivitami 2- No Alcohol 1{tbl} QD Take 1 [facility] (DAILY 04-14 05-21 abuse, in tablet by [facility]) 00:00: [...] Immunizations Ordered Filled Immunization Date Status Comments [facility] e Immunization Name Name Influenza Virus 2021-06-04 Completed [facility], 00[facility]:00 [place] [facility] ABX Branch Free 2-64 YRS Influenza Virus 2021-06-04 Completed [facility], 00:00:00 [place] [facility] Preserv and ABX Branch Free 6 MO-64 YRS Influenza Virus 2021-06-04 Completed [facility], 00:00:00 [place] [facility] Preserv and ABX Branch Free 6 MO-64 YRS Influenza Virus 2021-06-04 Completed [facility], 00:00:00 [place] [facility] Preserv and ABX Branch Free 6 MO-64 YRS Influenza Virus 2021-06-04 Completed [facility], 00:00:00 [place] [facility] Preserv and ABX Branch Free 6 MO-64 YRS Influenza Virus 2021-06-04 Completed [facility], 00:00:00 [place] [facility] Preserv and ABX Branch Free [...] y of Vaccine [facility] .5 mL 00:00:00 [place] [facility] 6+ MO Branch Influenza Virus 2020-08-24 Completed [facility] .5 mL 00:00:00 [place] [facility] 6+ MO [facility] Influenza Virus 2020-08-24 Completed [facility] .5 mL 00:00:00 [place] [facility] 6+ MO [facility] Influenza Virus 2020-08-24 Completed [facility] .5 mL 00:00:00 [place] [facility] 6+ MO [facility] Influenza Virus 2020-08-24 Completed [facility] .5 mL 00:00:00 [place] [facility] 6+ MO [facility] Influenza Virus 2020-08-24 Completed [facility] .5 mL 00:00:00 [place] [facility] 6+ MO [facility] Influenza Virus 2020-08-24 Completed [facility] .5 mL 00:00:00 [place] [facility] 6+ MO [facility] Influenza Virus 2020-08-24 Completed [facility] .5 mL 00:00:00 [facility] 6+ MO [facility] Influenza Virus 2020-08-24 Completed [facility] .5 mL 00:00:00 [facility] 6+ MO [facility] Influenza Virus 2020-08-24 Completed [facility] .5 mL 00:00:00 [facility] 6+ MO [facility] Influenza Virus 2020-08-24 Completed [facility] .5 mL 00:00:00 [facility] 6+ MO [facility] Influenza Virus 2020-08-24 Completed [facility] .5 mL 00:00:00 [facility] 6+ MO Branch Influenza Virus [...] y of Vaccine [facility] .5 mL 00:00:00 [facility] 6+ MO [facility] Influenza Virus 2020-08-24 Completed [facility] .5 mL 00:00:00 [facility] 6+ MO [facility] Influenza Virus 2020-08-24 Completed [facility] .5 mL 00:00:00 [facility] 6+ MO [facility] Influenza Virus 2020-08-24 Completed [facility] .5 mL 00:00:00 [facility] 6+ MO Branch PPD 2017-04-14 Completed [facility] 00:00:00 PPD 2017-04-14 Completed [facility] 00:00:00 PPD 2017-04-14 Completed [facility] 00:00:00 PPD 2017-04-14 Completed [facility] 00:00:00 PPD 2017-04-14 Completed [facility] 00:00:00 PPD 2017-04-14 Completed [facility] 00:00:00 Influenza Virus 2016-05-16 Completed [facility] 3+ 00:00:00 [facility] Influenza Virus 2016-05-16 Completed [facility] 3+ 00:00:00 [facility] Influenza Virus 2016-05-16 Completed [facility] 3+ 00:00:00 [facility] Influenza Virus 2016-05-16 Completed [facility] 3+ 00:00:00 [facility] Influenza Virus 2016-05-16 Completed [facility] 3+ 00:00:00 [facility] Influenza Virus 2016-05-16 Completed [facility] 3+ 00:00:00 [facility] Influenza Virus 2016-05-16 Completed [facility] 3+ 00:00:00 [facility] Influenza Virus 2016-05-16 Completed [facility] 3+ 00:00:00 [facility] Influenza Virus 2016-05-16 Completed [facility] 3+ 00:00:00 [facility] Influenza Virus 2016-05-16 Completed [facility] 3+ 00:00:00 [facility] Influenza Virus 2016-05-16 Completed [facility] 3+ 00:00:00 [facility] Influenza Virus 2016-05-16 Completed [facility] 3+ 00:00:00 [facility] Influenza Virus 2016-05-16 Completed [facility] 3+ 00:00:00 [facility] Influenza Virus 2016-05-16 Completed [facility] 3+ 00:00:00 [facility] Influenza Virus 2016-05-16 Completed [facility] 3+ 00:00:00 [facility] Influenza Virus 2016-05-16 Completed [facility] 3+ 00:00:00 [facility] Influenza Virus 2016-05-16 Completed [facility] 3+ 00:00:00 [facility] Influenza Virus 2016-05-16 Completed [facility] 3+ 00:00:00 [facility] Influenza Virus 2016-05-16 Completed [facility] 3+ 00:00:00 [facility] Influenza Virus 2016-05-16 Completed [facility] 3+ 00:00:00 [facility] Influenza Virus 2016-05-16 Completed [facility] 3+ 00:00:00 [facility] Influenza Virus 2016-05-16 Completed [facility] 3+ 00:00:00 [facility] Influenza Virus 2016-05-16 Completed [facility] 3+ 00:00:00 [facility] Influenza Virus 2016-05-16 Completed [facility] 3+ 00:00:00 [facility] Influenza Virus 2016-05-16 Completed [facility] 3+ 00:00:00 [facility] Influenza Virus 2016-05-16 Completed [facility] 3+ 00:00:00 [facility] Influenza Virus 2016-05-16 Completed [facility] 3+ 00:00:00 [facility] Influenza Virus 2016-05-16 Completed [facility] 3+ 00:00:00 [facility] Influenza Virus 2016-05-16 Completed [facility] 3+ 00:00:00 [facility] Influenza Virus 2016-05-16 Completed [facility] 3+ 00:00:00 [facility] Influenza Virus 2016-05-16 Completed [facility] 3+ 00:00:00 [facility] Influenza Virus 2016-05-16 Completed [facility] 3+ 00:00:00 [facility] Influenza Virus 2016-05-16 Completed [facility] 3+ 00:00:00 [facility] Influenza Virus 2016-05-16 Completed [facility] 3+ 00:00:00 [facility] Influenza Virus 2016-05-16 Completed [facility] 3+ 00:00:00 [facility] Influenza Virus 2016-05-16 Completed [facility] 3+ 00:00:00 [facility] Influenza Virus 2016-05-16 Completed [facility] 3+ 00:00:00 [facility] Influenza Virus 2016-05-16 Completed [facility] 3+ 00:00:00 [facility] Influenza Virus 2016-05-16 Completed [facility] 3+ 00:00:00 [facility] Influenza Virus 2016-05-16 Completed [facility] 3+ 00:00:00 [facility] Influenza Virus 2016-05-16 Completed [facility] 3+ 00:00:00 [facility] Influenza Virus 2016-05-16 Completed [facility] 3+ 00:00:00 [facility] Influenza Virus 2016-05-16 Completed [facility] 3+ 00:00:00 [facility] Influenza Virus 2016-05-16 Completed [facility] 3+ 00:00:00 [facility] Influenza Virus 2016-05-16 Completed [facility] 3+ 00:00:00 [facility] Influenza Virus 2016-05-16 Completed [facility] 3+ 00:00:00 [facility] Influenza Virus 2016-05-16 Completed [facility] 3+ 00:00:00 [facility] Influenza Virus 2016-05-16 Completed [facility] 3+ 00:00:00 [facility] Influenza Virus 2016-05-16 Completed [facility] 3+ 00:00:00 [facility] Influenza Virus 2016-05-16 Completed [facility] 3+ 00:00:00 [facility] Influenza Virus 2016-05-16 Completed [facility] 3+ 00:00:00 [facility] Influenza Virus 2016-05-16 Completed [facility] 3+ 00:00:00 [facility] Influenza Virus 2016-05-16 Completed [facility] 3+ 00:00:00 [facility] Influenza Virus 2016-05-16 Completed [facility] 3+ 00:00:00 [facility] Influenza Virus 2016-05-16 Completed [facility] 3+ 00:00:00 [facility] Influenza Virus 2016-05-16 Completed [facility] 3+ 00:00:00 [facility] Influenza Virus 2016-05-16 Completed [facility] 3+ 00:00:00 [facility] Influenza Virus 2016-05-16 Completed [facility] 3+ 00:00:00 [facility] Influenza Virus 2016-05-16 Completed [facility] 3+ 00:00:00 [facility] Influenza Virus 2016-05-16 Completed [facility] 3+ 00:00:00 [facility] Influenza Virus 2016-05-16 Completed [facility] Vaccine [facility] IM 3+ 00:00:00 [facility] Influenza Virus 2016-05-16 Completed [facility] Vaccine [facility] IM 3+ 00:00:00 [facility] Influenza Virus 2016-05-16 Completed [facility] IM 3+ 00:00:00 [facility] Influenza Virus 2016-05-16 Completed [facility] IM 3+ 00:00:00 [facility] Influenza Virus 2016-05-16 Completed [facility] IM 3+ 00:00:00 [facility] Influenza Virus 2016-05-16 Completed [facility]ine [facility] IM 3+ 00:00:00 [facility] Influenza Virus 2016-05-16 Completed [facility] IM 3+ 00:00:00 [facility] Influenza Virus 2016-05-16 Completed [facility] IM 3+ 00:00:00 [facility] Influenza Virus 2016-05-16 Completed [facility]ine [facility] IM 3+ 00:00:00 [facility] Influenza Virus 2016-05-16 Completed [facility]ine [facility] IM 3+ 00:00:00 [facility] Influenza Virus 2016-05-16 Completed [facility] IM 3+ 00:00:00 [facility] Influenza Virus 2016-05-16 Completed [facility] 3+ 00:00:00 [facility] Influenza Virus 2016-05-16 Completed [facility] 3+ 00:00:00 [facility] Vital Signs Vital Name Observation Time Observation Value Comments Source Systolic blood 2022-04-10 115 mm[Hg] University of pressure 05:05:13 [facility] Diastolic blood 2022-04-10 93 mm[Hg] University o f pressure 05:05:13 [facility] Heart rate 2022-04-10 87 /min University 05:05:13 [facility] Respiratory rate 2022-04-10 15 /min University 05:05:13 [facility] Oxygen saturation 2022-04-10 100 /[facility] Arterial blood 05:05:13 [facility] by Pulse oximetry [place] Body temperature 2022-04-10 36.61 Tasia University of 01:35:00 [facility] Body height 2022-04-10 185.4 cm University of 01:35:00 [facility] Body weight 2022-04-10 68.04 kg University of 01:35:00 [facility] BMI 2022-04-10 19.79 kg/m2 University of 01:35:00 [facility] Systolic blood 2022-04-08 86 mm[Hg] University of pressure 13:00:00 [facility] Diastolic blood 2022-04-08 75 mm[Hg] University o f pressure 13:00:00 [facility] Heart rate 2022-04-08 61 /min University of 13:00:00 [facility] Body temperature 2022-04-08 35.67 Tasia University of 13:00:00 [facility] Respiratory rate 2022-04-08 17 /min University of 13:00:00 [facility] Oxygen saturation 2022-04-08 95 /min University of in Arterial blood 13:00:00 [facility] mariusz by Pulse oximetry Branch Body weight 2022-04-06 72.984 kg University of 08:20:00 [facility] BMI 2022-04-06 21.23 kg/m2 University of 08:20:00 [facility] Body height 2022-04-02 185.4 cm University of 16:37:00 [facility] HEIGHT 2022-03-06 185.4 cm 12:05:00 WEIGHT 2022-03-06 65.772 kg 12:05:00 HEIGHT 2022-03-06 185.4 cm 12:05:00 WEIGHT 2022-03-06 65.772 kg 12:05:00 HEIGHT 2022-03-06 185.4 cm 12:05:00 WEIGHT 2022-03-06 65.772 kg 12:05:00 Systolic blood 2021-09-14 106 mm[Hg] University of pressure 03:17:00 [facility] Diastolic blood 2021-09-14 55 mm[Hg] University o f pressure 03:17:00 [facility] Heart rate 2021-09-14 86 /min University of 03:17:00 [facility] Body temperature 2021-09-14 36.89 Tasia University of 03:17:00 [facility] Respiratory rate 2021-09-14 18 /min University of 03:17:00 [facility] Oxygen saturation 2021-09-14 98 /min University of in Arterial blood 03:17:00 [facility] mariusz by Pulse oximetry Branch Systolic blood 2021-09-12 90 mm[Hg] University of pressure 22:20:00 [facility] Diastolic blood 2021-09-12 66 mm[Hg] University o f pressure 22:20:00 [facility] Heart rate 2021-09-12 97 /min University of 22:20:00 [facility] Body temperature 2021-09-12 36.61 Tasia University of 22:20:00 [facility] Respiratory rate 2021-09-12 16 /min University of 22:20:00 [facility] Oxygen saturation 2021-09-12 98 /min University of in Arterial blood 22:20:00 [place] [facility] by Pulse oximetry Branch Body weight 2021-09-12 68.04 kg University of 20:25:00 [facility] BMI 2021-09-12 19.79 kg/m2 University of 20:25:00 [facility] Systolic blood 2021-09-12 103 mm[Hg] University of pressure 13:29:00 [facility] Diastolic blood 2021-09-12 67 mm[Hg] University o f pressure 13:29:00 [facility] Heart rate 2021-09-12 91 /min University of 13:29:00 [facility] Body temperature 2021-09-12 36.72 Tasia University of 13:29:00 [facility] Respiratory rate 2021-09-12 33 /min University of 13:29:00 [facility] Oxygen saturation 2021-09-12 98 /min University of in Arterial blood 13:29:00 [facility] mariusz by Pulse oximetry Branch Body weight 2021-09-12 68.04 kg University of 12:17:00 [facility] BMI 2021-09-12 19.79 kg/m2 University of 12:17:00 [facility] Systolic blood 2021-09-09 100 mm[Hg] University of pressure 04:59:00 [facility] Diastolic blood 2021-09-09 60 mm[Hg] University o f pressure 04:59:00 [facility] Heart rate 2021-09-09 85 /min University of 04:59:00 [facility] Body temperature 2021-09-09 36.5 Tasia University of 04:59:00 [facility] Respiratory rate 2021-09-09 16 /min University of 04:59:00 [facility] Body height 2021-09-09 185.4 cm University of 04:59:00 [facility] Body weight 2021-09-09 68.04 kg University of 04:59:00 [facility] BMI 2021-09-09 19.79 kg/m2 University of 04:59:00 [facility] Oxygen saturation 2021-09-09 98 /min University of in Arterial blood 04:59:00 [facility] mariusz by Pulse oximetry Branch Systolic blood 2021-09-08 129 mm[Hg] University of pressure 05:42:00 [facility] Diastolic blood 2021-09-08 69 mm[Hg] University o f pressure 05:42:00 [facility] Heart rate 2021-09-08 85 /min University of 05:42:00 [facility] Respiratory rate 2021-09-08 17 /min University of 05:42:00 [facility] Oxygen saturation 2021-09-08 98 /min University of in Arterial blood 05:42:00 [place] [facility] by Pulse oximetry Branch Body temperature 2021-09-08 37.44 Tasia University of 01:22:00 [facility] Body weight 2021-09-08 68 kg University of 01:22:00 [facility] BMI 2021-09-08 19.78 kg/m2 University of 01:22:00 [facility] Systolic blood 2021-09-06 123 mm[Hg] University of pressure 21:33:00 [facility] Diastolic blood 2021-09-06 65 mm[Hg] University o f pressure 21:33:00 [facility] Heart rate 2021-09-06 91 /min University of 21:33:00 [facility] Body temperature 2021-09-06 36.39 Tasia University of 21:33:00 [facility] Respiratory rate 2021-09-06 18 /min University of 21:33:00 [facility] Body weight 2021-09-06 68.04 kg University of 21:33:00 [facility] BMI 2021-09-06 19.79 kg/m2 University of 21:33:00 [facility] Oxygen saturation 2021-09-06 100 /min University of in Arterial blood 21:33:00 [facility] mariusz by Pulse oximetry Branch Systolic blood 2021-09-05 99 mm[Hg] University of pressure 17:16:00 [facility] Diastolic blood 2021-09-05 62 mm[Hg] University o f pressure 17:16:00 [facility] Heart rate 2021-09-05 78 /min University of 17:16:00 [facility] Branch Body temperature 2021-09-05 36.39 Tasia University of 17:16:00 [facility] Respiratory rate 2021-09-05 17 /min University of 17:16:00 [facility] Oxygen saturation 2021-09-05 95 /min [facility] of in Arterial blood 17:16:00 [place] [facility] by Pulse oximetry Branch Body height 2021-08-31 185.4 cm University of 07:29:00 [facility] Body weight 2021-08-31 68.04 kg University of :29:00 [facility] BMI 2021-08-31 19.79 kg/m2 University of 07:29:00 [facility] Systolic blood 2021-09-03 111 mm[Hg] University of pressure 15:59:00 [facility] Diastolic blood 2021-09-03 65 mm[Hg] University o f pressure 15:59:00 [facility] Heart rate 2021-09-03 75 /min University of 15:59:00 [facility] Body temperature 2021-09-03 35.72 Tasia University of 15:59:00 [facility] Respiratory rate 2021-09-03 18 /min University of 15:59:00 [facility] Oxygen saturation 2021-09-03 100 /min University of in Arterial blood 15:59:00 [facility] by Pulse oximetry Branch Body height 2021-08-31 185.4 cm University of 07:29:00 [facility] Body weight 2021-08-31 68.04 kg University of :29:00 [facility] BMI 2021-08-31 19.79 kg/m2 University of 07:29:00 [facility] Systolic blood 2021-08-29 111 mm[Hg] University of pressure 23:12:00 [facility] Diastolic blood 2021-08-29 73 mm[Hg] University o f pressure 23:12:00 [facility] Heart rate 2021-08-29 95 /min University of 23:12:00 [facility] Body temperature 2021-08-29 37 Tasia University of 23:12:00 [facility] Respiratory rate 2021-08-29 18 /min University of 23:12:00 [facility] Body weight 2021-08-29 68.04 kg University of 23:12:00 [facility] BMI 2021-08-29 19.79 kg/m2 University of 23:12:00 [facility] Oxygen saturation 2021-08-29 99 /min University of in Arterial blood 23:12:00 [facility] by Pulse oximetry [facility] Systolic blood 2021-08-05 92 mm[Hg] University of pressure 10:56:00 [facility] Diastolic blood 2021-08-05 75 mm[Hg] University o f pressure 10:56:00 [facility] Heart rate 2021-08-05 67 /min University of 10:56:00 [facility] Body temperature 2021-08-05 36.22 Tasia University of 10:56:00 [facility] Oxygen saturation 2021-08-05 93 /min University of in Arterial blood 10:56:00 [facility] mariusz by Pulse oximetry Branch Respiratory rate 2021-08-05 16 /min University of 06:24:00 [facility] Body height 2021-07-30 185.4 cm University of 09:49:00 [facility] Body weight 2021-07-30 65.772 kg University of 09:49:00 [facility] BMI 2021-07-30 19.13 kg/m2 University of 09:49:00 [facility] Systolic blood 2021-07-26 107 mm[Hg] University of pressure 17:32:00 [facility] Diastolic blood 2021-07-26 69 mm[Hg] University o f pressure 17:32:00 [facility] Heart rate 2021-07-26 70 /min University of 17:32:00 [facility] Body temperature 2021-07-26 36.39 Tasia University of 17:32:00 [facility] Respiratory rate 2021-07-26 16 /min University of 17:32:00 [facility] Oxygen saturation 2021-07-26 96 /min [place] of in Arterial blood 17:32:00 [facility] by Pulse oximetry Branch Body height 2021-07-23 185.4 cm University of 08:40:00 [facility] Body weight 2021-07-23 84.5 kg University of 08:40:00 [facility] BMI 2021-07-23 24.58 kg/m2 University of 08:40:00 [facility] Systolic blood 2021-06-04 95 mm[Hg] University of pressure 16:20:00 [facility] Branch Diastolic blood 2021-06-04 60 mm[Hg] University o f pressure 16:20:00 [facility] Heart rate 2021-06-04 61 /min University of 16:20:00 [facility] Body temperature 2021-06-04 36.17 Tasia University of 16:20:00 [facility] Respiratory rate 2021-06-04 18 /min University of 16:20:00 [facility] Oxygen saturation 2021-06-04 100 /min University of in Arterial blood 16:20:00 [facility] by Pulse oximetry Branch Body weight 2021-06-01 65.772 kg University of 19:00:00 [facility] BMI 2021-06-01 19.13 kg/m2 University of 19:00:00 [facility] Body height 2021-05-31 185.4 cm University of 22:12:00 [facility] Systolic blood 2021-05-21 101 mm[Hg] [facility] of pressure 20:21:00 [facility] Diastolic blood 2021-05-21 68 mm[Hg] University o f pressure 20:21:00 [facility] Heart rate 2021-05-21 74 /min [facility] 20:21:00 [facility] Body temperature 2021-05-21 36.56 Tasia University of 20:21:00 [facility] Respiratory rate 2021-05-21 18 /min [facility] 20:21:00 [facility] Oxygen saturation 2021-05-21 99 /min University of in Arterial blood 20:21:00 [facility] by Pulse oximetry Branch Body height 2021-05-21 185.4 cm University of 00:15:00 [facility] Body weight 2021-05-21 65.772 kg University of 00:15:00 [facility] BMI 2021-05-21 19.13 kg/m2 University of 00:15:00 [facility] Systolic blood 2021-05-09 101 mm[Hg] [facility] pressure 16:32:00 [facility] Diastolic blood 2021-05-09 70 mm[Hg] University o f pressure 16:32:00 [facility] Heart rate 2021-05-09 69 /min [facility] 16:32:00 [facility] Body temperature 2021-05-09 36.72 Tasia [facility] 16:32:00 [facility] Respiratory rate 2021-05-09 16 /min [facility] of 16:32:00 [facility] Oxygen saturation 2021-05-09 99 /min [facility] in Arterial blood 16:32:00 [facility] by Pulse oximetry Branch Body height 2021-05-08 185.4 cm University of 05:48:00 [facility] Body weight 2021-05-08 80.196 kg University of 05:48:00 [facility] BMI 2021-05-08 23.33 kg/m2 University of 05:48:00 [facility] Heart rate 2020-09-27 89 /min [facility] 04:25:00 [facility] Respiratory rate 2020-09-27 20 /min [facility] 04:25:00 [facility] Oxygen saturation 2020-09-27 99 /min [facility] in Arterial blood 04:25:00 [facility] by Pulse oximetry Branch Systolic blood 2020-09-27 103 mm[Hg] [facility] pressure 04:02:00 [facility] Diastolic blood 2020-09-27 78 mm[Hg] [facility] o [facility] pressure 04:02:00 [facility] Body temperature 2020-09-27 36.72 Tasia [facility] 04:00:00 [facility] Body weight 2020-09-26 79.379 kg [facility] 22:35:00 [facility] BMI 2020-09-26 23.09 kg/m2 [facility] 22:35:00 [facility] Systolic blood 2020-08-24 105 mm[Hg] [facility] pressure 17:24:00 [facility] Diastolic blood 2020-08-24 64 mm[Hg] [facility] o f pressure 17:24:00 [facility] Heart rate 2020-08-24 83 /min [facility] 17:24:00 [facility] Body temperature 2020-08-24 36.56 Tasia [facility] 17:24:00 [facility] Respiratory rate 2020-08-24 16 /min [facility] 17:24:00 [facility] Oxygen saturation 2020-08-24 98 /min [facility] in Arterial blood 17:24:00 [facility] by Pulse oximetry Branch Body height 2020-08-23 185.4 cm [facility] 03:19:00 [facility] Body weight 2020-08-23 79.379 kg University of 03:19:00 [facility] BMI 2020-08-23 23.09 kg/m2 University of 03:19:00 [facility] Systolic blood 2020-07-10 126 mm[Hg] [facility] pressure 01:32:00 [facility] Diastolic blood 2020-07-10 67 mm[Hg] University o f pressure 01:32:00 [facility] Heart rate 2020-07-10 92 /min University of :32:00 [facility] Body temperature 2020-07-10 37.17 Tasia University of :32:00 [facility] Respiratory rate 2020-07-10 16 /min University of :32:00 [facility] Oxygen saturation 2020-07-10 100 /min [facility] in Arterial blood 01:32:00 [facility] by Pulse oximetry Branch Body height 2020-07-09 154.9 cm University of :23:00 [facility] Body weight 2020-07-09 68.04 kg University of :23:00 [facility] BMI 2020-07-09 28.34 kg/m2 University of 22:23:00 [facility] Systolic blood 2020-06-05 106 mm[Hg] [facility] pressure 15:00:00 [facility] Diastolic blood 2020-06-05 72 mm[Hg] University o f pressure 15:00:00 [facility] Heart rate 2020-06-05 84 /min [facility] of 15:00:00 [facility] Respiratory rate 2020-06-05 18 /min [facility] of 15:00:00 [facility] Oxygen saturation 2020-06-05 100 /min [facility] in Arterial blood 15:00:00 [facility] by Pulse oximetry Branch Body temperature 2020-06-05 36.61 Tasia University [facility] 14:54:52 [facility] Body weight 2020-06-05 65.772 kg University of 11:48:00 [facility] BMI 2020-06-05 19.13 kg/m2 University of 11:48:00 [facility] Systolic blood 2020-06-04 130 mm[Hg] [facility] of pressure 18:30:00 [facility] Diastolic blood 2020-06-04 84 mm[Hg] University o f pressure 18:30:00 [facility] Heart rate 2020-06-04 72 /min [facility] of 18:30:00 [facility] Body temperature 2020-06-04 36.72 Tasia [facility] 18:30:00 [facility] Respiratory rate 2020-06-04 16 /min [facility] of 18:30:00 [facility] Oxygen saturation 2020-06-04 98 /min [facility] of in Arterial blood 18:30:00 [facility] by Pulse oximetry Branch Systolic blood 2020-05-31 90 mm[Hg] [facility] pressure 19:59:00 [facility] Diastolic blood 2020-05-31 59 mm[Hg] [facility] o f pressure 19:59:00 [facility] Heart rate 2020-05-31 88 /min [facility] of 19:59:00 [facility] Body temperature 2020-05-31 36.78 Tasia [facility] 19:59:00 [facility] Respiratory rate 2020-05-31 16 /min [facility] 19:59:00 [facility] Oxygen saturation 2020-05-31 98 /min [facility] in Arterial blood 19:59:00 [facility] by Pulse oximetry Branch Body height 2020-05-30 185.4 cm [facility] of 18:29:00 [facility] Body weight 2020-05-30 69.5 kg weighed in bed University of 18:29: [facility] BMI 2020-05-30 20.21 kg/m2 University of 18:29:00 [facility] Systolic blood 2020-05-22 100 mm[Hg] [facility] pressure 04:38:00 [facility] Diastolic blood 2020-05-22 71 mm[Hg] [facility] o f pressure 04:38:00 [facility] Heart rate 2020-05-22 90 /min [facility] of 04:38:00 [facility] Respiratory rate 2020-05-22 18 /min [facility] 04:38:00 [facility] Oxygen saturation 2020-05-22 97 /min [facility] in Arterial blood 04:38:00 [facility] by Pulse oximetry Branch Body temperature 2020-05-22 36.83 Tasia [facility] 02:02:11 [facility] Body height 2020-05-22 185.4 cm [facility] of 01:59:00 [facility] Body weight 2020-05-22 65.772 kg [facility] of 01:59:00 [facility] BMI 2020-05-22 19.13 kg/m2 [facility] of 01:59:00 [facility] Systolic blood 2020-05-20 95 mm[Hg] [facility] pressure 18:33:34 [facility] Diastolic blood 2020-05-20 62 mm[Hg] [facility] o f pressure 18:33:34 [facility] Heart rate 2020-05-20 86 /min [facility] of 18:33:34 [facility] Respiratory rate 2020-05-20 20 /min [facility] of 18:33:34 [facility] Oxygen saturation 2020-05-20 98 /min [facility] in Arterial blood 18:33:34 [facility] by Pulse oximetry Branch Body temperature 2020-05-20 37 Tasia [facility] 12:02:00 [facility] Body weight 2020-05-20 65.8 kg [facility] 12:02:00 [facility] BMI 2020-05-20 19.14 kg/m2 [facility] 12:02:00 [facility] Systolic blood 2020-05-20 101 mm[Hg] [facility] pressure 10:58:00 [facility] Diastolic blood 2020-05-20 56 mm[Hg] [facility] pressure 10:58:00 [facility] Heart rate 2020-05-20 79 /min [facility] 10:58:00 [facility] Body temperature 2020-05-20 37 Tasia [facility] 10:58:00 [facility] Respiratory rate 2020-05-20 16 /min [facility] of 10:58:00 [facility] Oxygen saturation 2020-05-20 99 /min [facility] in Arterial blood 10:58:00 [facility] mariusz by Pulse oximetry Branch Body height 2020-05-20 185.4 cm [facility] of 02:36:00 [facility] Body weight 2020-05-20 65.772 kg [facility] of 02:36:00 [facility] BMI 2020-05-20 19.13 kg/m2 [facility] of 02:36:00 [facility] Systolic blood 2020-05-12 93 mm[Hg] [facility] pressure 17:02:00 [facility] Diastolic blood 2020-05-12 61 mm[Hg] [facility] pressure 17:02:00 [facility] Body temperature 2020-05-12 37.06 Tasia [facility] 17:02:00 [facility] Heart rate 2020-05-12 74 /min [facility] 09:00:00 [facility] Respiratory rate 2020-05-12 18 /min [facility] 09:00:00 [facility] Oxygen saturation 2020-05-12 95 /min [facility] in Arterial blood 09:00:00 [facility] by Pulse oximetry Branch Body height 2020-05-05 185.4 cm [facility] of 09:05:00 [facility] Body weight 2020-05-05 65.772 kg [facility] of 09:05:00 [facility] BMI 2020-05-05 19.13 kg/m2 [facility] of 09:05:00 [facility] Systolic blood 2020-05-03 107 mm[Hg] [facility] pressure 04:30:00 [facility] Diastolic blood 2020-05-03 62 mm[Hg] [facility] pressure 04:30:00 [facility] Heart rate 2020-05-03 105 /min [facility] 04:30:00 [facility] Body temperature 2020-05-03 37.22 Tasia [facility] 04:30:00 [facility] Respiratory rate 2020-05-03 14 /min [facility] 04:30:00 [facility] Body height 2020-05-03 185.4 cm [facility] 04:30:00 [facility] Body weight 2020-05-03 65.772 kg [facility] of 04:30: [facility] BMI 2020-05-03 19.13 kg/m2 [facility] 04:30:00 [facility] Systolic blood 2020-05-02 105 mm[Hg] [facility] pressure 12:46:00 [facility] Diastolic blood 2020-05-02 57 mm[Hg] [facility] pressure 12:46:00 [facility] Heart rate 2020-05-02 79 /min [facility] 12:46:00 [facility] Body temperature 2020-05-02 36.28 Tasia [facility] 12:46:00 [facility] Respiratory rate 2020-05-02 16 /min [facility] 12:46:00 [facility] Oxygen saturation 2020-05-02 98 /min [facility] in Arterial blood 12:46:00 [facility] by Pulse oximetry Lorenzo Body height 2020-04-16 185.4 cm [facility] 20:11:00 [facility] Body weight 2020-04-16 79.379 kg [facility] of 20:11:00 [facility] BMI 2020-04-16 23.09 kg/m2 [facility] 20:11:00 [facility] Respiratory rate 2020-04-06 12 /min [facility] 16:20:00 [facility] Systolic blood 2020-03-28 125 mm[Hg] [facility] pressure 16:00:00 [facility] Diastolic blood 2020-03-28 87 mm[Hg] [facility] pressure 16:00:00 [facility] Heart rate 2020-03-28 74 /min [facility] 16:00:00 [facility] Body temperature 2020-03-28 36.44 Tasia [facility] 16:00:00 [facility] Respiratory rate 2020-03-28 18 /min [facility] 16:00:00 [facility] Oxygen saturation 2020-03-28 100 /min [facility] in Arterial blood 16:00:00 [facility] mariusz by Pulse oximetry Lorenzo Body height 2020-03-26 185.4 cm [facility] 03:49:00 [facility] Body weight 2020-03-26 74.844 kg [facility] of 03:49:00 [facility] BMI 2020-03-26 21.77 kg/m2 [facility] 03:49:00 [facility] Systolic blood 2020-03-05 107 mm[Hg] [facility] pressure 16:00:00 [facility] Diastolic blood 2020-03-05 67 mm[Hg] [facility] o f pressure 16:00:00 [facility] Heart rate 2020-03-05 56 /min [facility] 16:00:00 [facility] Body temperature 2020-03-05 36.5 Tasia [facility] 16:00:00 [facility] Respiratory rate 2020-03-05 18 /min [facility] 16:00:00 [facility] Oxygen saturation 2020-03-05 100 /min [facility] in Arterial blood 16:00:00 [facility] mariusz by Pulse oximetry Branch Body height 2020-03-03 185.4 cm [facility] 05:49:00 [facility] Body weight 2020-03-03 71.668 kg [facility] of 05:49:00 [facility] BMI 2020-03-03 20.85 kg/m2 [facility] 05:49:00 [facility] Systolic blood 2020-02-27 100 mm[Hg] [facility] pressure 21:12:00 [facility] Diastolic blood 2020-02-27 74 mm[Hg] [facility] pressure 21:12:00 [facility] Heart rate 2020-02-27 90 /min [facility] 21:12:00 [facility] Body temperature 2020-02-27 35.78 Tasia [facility] 21:12:00 [facility] Respiratory rate 2020-02-27 19 /min [facility] 21:12:00 [facility] Oxygen saturation 2020-02-27 99 /min [facility] in Arterial blood 21:12:00 [facility] mariusz by Pulse oximetry Branch Body weight 2020-02-26 71.215 kg [facility] 23:05:00 [facility] BMI 2020-02-26 20.71 kg/m2 [facility] 23:05:00 [facility] Systolic blood 2020-02-26 132 mm[Hg] [facility] pressure 07:43:00 [facility] Diastolic blood 2020-02-26 71 mm[Hg] [facility] pressure 07:43:00 [facility] Heart rate 2020-02-26 82 /min [facility] 07:43:00 [facility] Respiratory rate 2020-02-26 18 /min [facility] 07:43:00 [facility] Oxygen saturation 2020-02-26 100 /min [facility] in Arterial blood 07:43:00 [facility] mariusz by Pulse oximetry Branch Body temperature 2020-02-26 36.94 Tasia [facility] 04:57:00 [facility] Body height 2020-02-26 185.4 cm [facility] 02:30:00 [facility] Body weight 2020-02-26 68.04 kg [facility] 02:30:00 [facility] BMI 2020-02-26 19.79 kg/m2 [facility] 02:30:00 [facility] Systolic blood 2020-02-05 100 mm[Hg] [facility] pressure 16:00:00 [facility] Diastolic blood 2020-02-05 61 mm[Hg] [facility] pressure 16:00:00 [facility] Heart rate 2020-02-05 60 /min [facility] 16:00:00 [facility] Body temperature 2020-02-05 36.67 Tasia [facility] 16:00:00 [facility] Respiratory rate 2020-02-05 17 /min [facility] 16:00:00 [facility] Oxygen saturation 2020-02-05 98 /min [facility] in Arterial blood 16:00:00 [facility] mariusz by Pulse oximetry Branch Body height 2020-01-28 185.4 cm [facility] 23:13:00 [facility] Body weight 2020-01-28 68.04 kg [facility] 23:13:00 [facility] BMI 2020-01-28 19.79 kg/m2 [facility] 23:13:00 [facility] Systolic blood 2020-02-05 100 mm[Hg] [facility] pressure 16:00:00 [facility] Diastolic blood 2020-02-05 61 mm[Hg] [facility] o f pressure 16:00:00 [facility] Heart rate 2020-02-05 60 /min [facility] 16:00:00 [facility] Body temperature 2020-02-05 36.67 Tasia [facility] 16:00:00 [facility] Respiratory rate 2020-02-05 17 /min [facility] 16:00:00 [facility] Oxygen saturation 2020-02-05 98 /min [facility] in Arterial blood 16:00:00 [facility] Pulse oxim[facility] Body height 2020-01-28 185.4 cm [facility] 23:13:00 [facility] Body weight 2020-01-28 68.04 kg [facility] 23:13:00 [facility] BMI 2020-01-28 19.79 kg/m2 [facility] 23:13:00 [facility] Systolic blood 2020-01-27 114 mm[Hg] [facility] pressure 00:32:00 [facility] Diastolic blood 2020-01-27 66 mm[Hg] [facility] o f pressure 00:32:00 [facility] Heart rate 2020-01-27 73 /min [facility] 00:32:00 [facility] Body temperature 2020-01-27 36.67 Tasia [facility] 00:32:00 [facility] Respiratory rate 2020-01-27 18 /min [facility] 00:32:00 [facility] Oxygen saturation 2020-01-27 97 /min [facility] in Arterial blood 00:32:00 [facility] mariusz by Pulse oximetry Branch Body height 2020-01-24 185.4 cm [facility] 23:55:00 [facility] Body weight 2020-01-24 68.04 kg [facility] 23:55:00 [facility] BMI 2020-01-24 19.79 kg/m2 [facility] 23:55:00 [facility] Systolic blood 2020-01-27 114 mm[Hg] [facility] pressure 00:32:00 [facility] Diastolic blood 2020-01-27 66 mm[Hg] [facility] pressure 00:32:00 [facility] Heart rate 2020-01-27 73 /min [facility] 00:32:00 [facility] Body temperature 2020-01-27 36.67 Tasia [facility] 00:32:00 [facility] Respiratory rate 2020-01-27 18 /min [facility] 00:32:00 [facility] Oxygen saturation 2020-01-27 97 /min [facility] in Arterial blood 00:32:00 [facility] by Pulse oximetry Branch Body height 2020-01-24 185.4 cm University of :55:00 [facility] Body weight 2020-01-24 68.04 kg [facility] 23:55:00 [facility] BMI 2020-01-24 19.79 kg/m2 [facility] 23:55:00 [facility] Body temperature 2019-12-13 36.72 Tasia [facility] 02:56:16 [facility] Systolic blood 2019-12-13 114 mm[Hg] [facility] pressure 01:57:00 [facility] Diastolic blood 2019-12-13 77 mm[Hg] [facility] pressure 01:57:00 [facility] Heart rate 2019-12-13 75 /min [facility] 01:57:00 [facility] Respiratory rate 2019-12-13 20 /min [facility] 01:57:00 [facility] Body height 2019-12-13 185.4 cm [facility] 01:57:00 [facility] Body weight 2019-12-13 [facility]04 [facility]00 [facility] BMI 2019-12-13 19.79 kg/m2 [facility]57:00 [facility] Oxygen saturation 2019-12-13 97 /min [place] of in Arterial blood 01:57:00 [facility] by Pulse oximetry Branch Body temperature 2019-12-13 36.72 Tasia [facility] 02:56:16 [facility] Systolic blood 2019-12-13 114 mm[Hg] [facility] pressure 01:57:00 [facility] Diastolic blood 2019-12-13 77 mm[Hg] [place] o f pressure 01:57:00 [facility] Heart rate 2019-12-13 75 /min [facility] :57:00 [facility] Respiratory rate 2019-12-13 20 /min [facility] :57:00 [facility] Body height 2019-12-13 185.4 cm [facility] :57:00 [facility] Body weight 2019-12-13 68.04 kg [facility] :57:00 [facility] BMI 2019-12-13 19.79 kg/m2 [facility] :57:00 [facility] Oxygen saturation 2019-12-13 97 /min [facility] Arterial blood 01:57:00 [facility] by Pulse oximetry [place] Systolic blood 2022-03-13 94 mm[Hg] [facility] pressure 15:33:00 Diastolic blood 2022-03-13 62 mm[Hg] [facility] h pressure 15:33:00 Heart rate 2022-03-13 109 /min [facility] 15:33:00 Body temperature 2022-03-[address] [facility] 15:33:00 Respiratory rate 2022-03-13 20 /min [facility] 15:33:00 Body height 2022-03-13 185.4 cm [facility] 15:33:00 Body weight 2022-03-13 66.679 kg [facility] 15:33:00 BMI 2022-03-13 19.39 kg/m2 [facility] 15:33:00 Oxygen saturation 2022-03-13 100 /min [facility] in Arterial blood 15:33:00 by Pulse oximetry Systolic blood 2022-03-09 107 mm[Hg] [facility] pressure 11:00:00 [facility] Diastolic blood 2022-03-09 66 mm[Hg] [facility] pressure 11:00:00 [facility] Heart rate 2022-03-09 58 /min [facility] 11:00:00 [facility] Body temperature 2022-03-09 36.22 Tasia [facility] 11:00:00 [facility] Respiratory rate 2022-03-09 16 /min [facility] 11:00:00 [facility] Oxygen saturation 2022-03-09 100 /min [facility] Arterial blood 11:00:00 [facility] by Pulse oximetry Body height 2022-03-06 185.4 cm [facility] 12:05:00 [facility] Body weight 2022-03-06 65.772 kg [facility] 12:05:00 [facility] BMI 2022-03-06 19.13 kg/m2 [facility] 12:05:00 [facility] Procedures Procedure Date / Time Performing Clinician Source Performed COMP. METABOLIC PANEL 2022-04-10 03:54:00 Alvarez [facility] ([id number]) [facility] CBC WITH DIFF 2022-04-10 03:49:00 Alvarez [facility] LIPASE 2022-04-10 03:07:00 Alvarez [facility] XR CHEST 2 VW 2022-04-10 02:59:18 Alvarez [facility] COVID-19 (ID NOW RAPID 2022-04-10 02:43:00 Alvarez [place] [facility] TESTING) Medical Branch PHOSPHORUS 2022-04-08 10:26:00 Shelia Lemus [facility] MAGNESIUM 2022-04-08 10:26:00 Kurt [facility] BASIC METABOLIC PANEL (NA, 2022-04-08 10:26:00 Sehlia Lemus [facility] K, CL, CO2, GLUCOSE, BUN, Medica l Branch CREATININE, [place]) CBC WITH DIFF 2022-04-08 10:26:00 Shelia Lemus [facility] PHOSPHORUS 2022-04-07 09:45:00 Don Medrano [facility] MAGNESIUM 2022-04-07 09:45:00 Marcela Don [facility] BASIC METABOLIC PANEL (NA, 2022-04-07 09:45:00 [facility], CO[facility], GLUCOSE, BUN, Medica l Branch CREATININE, CA) LACTIC ACID WHOLE BLOOD 2022-04-06 09:05:00 Kurt [facility] MAGNESIUM 2022-04-06 09:04[facility] (NA, 2022-04-06 09:04:00 [facility], CL, CO2, GLUCOSE, BUN, Medica l Branch CREATININE, CA) CBC WITH DIFF 2022-04-06 09:04[facility] (NA, 2022-04-05 08:12:00 Ag[facility] K, CL, CO2, GLUCOSE, BUN, Medica l Branch CREATININE, CA) ACUTE CARE VENOUS BLOOD 2022-04-05 08:12:00 Octavio Macario [facility] CBC WITH DIFF 2022-04-05 08:12:00 Shaista [facility] BASIC METABOLIC PANEL (NA, 2022-04-04 09:03:00 [facility], CO2, GLUCOSE, BUN, Medica l Branch CREATININE, CA) US RETROPERITONEAL LIMITED 2022-04-03 23:10:49 Octavio Macario [facility] ACUTE CARE VENOUS BLOOD 2022-04-03 18:33:00 Octavio Macario [facility] OSMOLALITY URINE 2022-04-03 17:59:00 Amirah [facility] BASIC METABOLIC PANEL (NA, 2022-04-03 17:59:00 Octavio Macario [facility] K, CL, CO2, GLUCOSE, BUN, Medica l Branch CREATININE, CA) CREATININE, URINE RANDOM 2022-04-03 17:59:00 Octavio Macario [facility] POTASSIUM, URINE RANDOM 2022-04-03 17:59:00 Macario, [facility] SODIUM, URINE RANDOM 2022-04-03 17:59:00 Amirah [facility] MAGNESIUM 2022-04-03 09:29:00 Amirah [facility] OSMOLALITY, SERUM OR 2022-04-03 09:29:00 Amirah [facility] PLASMA [facility] BASIC METABOLIC PANEL (NA, 2022-04-03 09:29:00 Juventino Thomas [facility] K, CL, CO2, GLUCOSE, BUN, Medica l Branch CREATININE, CA) CBC WITH DIFF 2022-04-03 09:29:00 William [facility] CLOSTRIDIUM DIFFICILE 2022-04-03 03:44:00 Zharaa Thomasshua [facility] TOXIN [facility] LACTIC ACID WHOLE BLOOD 2022-04-03 03:38:00 William [facility] LACTIC ACID WHOLE BLOOD 2022-04-03 00:07:00 William [facility] URINE CULTURE 2022-04-02 22:39:[address] [facility] CT ABDOMEN PELVIS WO 2022-04-02 21:07:00 Aguila [facility] CONTRAST [facility] LIPASE 2022-04-02 20:00:00 [facility] 2022-04-02 20:00:[address] [facility] HEPATIC FUNCTION PANEL 2022-04-02 20:00:00 Rekha Sheehan [facility] ([id number]) (ALB,T.PRO,BILI Medical Branch T,BU/BC,ALT,AST,ALK PHOS) BASIC METABOLIC PANEL (NA, 2022-04-02 20:00:00 Rekha Sheehan [facility] K, CL, CO2, GLUCOSE, BUN, Medica l Lorenzo CREATININE, CA) URINALYSIS 2022-04-02 20:00:[address] [facility] CBC WITH DIFF 2022-04-02 18:20:[address] [facility] COVID-19 (ID NOW RAPID 2022-04-02 18:20:00 Rekha Sheehan [facility] TESTING) Medical Branch LAB ONLY COVID 2022-04-02 18:20:00 Rekha Sheehan [facility] INTERPRETATION [facility] XR CHEST 2 VW 2022-04-02 17:29:13 Rekha Sheehan [facility] HB ECG ROUTINE & RHYTHM 2022-04-02 16:32:43 Rekha Sheehan [facility] STRIP [facility] CONSENT/REFUSAL FOR 2022-04-02 16:29:46 Doctor Unassigned, [facility] DIAGNOSIS AND TREATMENT [facility] BASIC METABOLIC PANEL (7) 2022-03-07 05:51:00 Shiela[facility]duarAcacia [facility] HEPATIC FUNCTION PANEL 2022-03-07 05:51:00 [facility] CBC W/PLT COUNT & AUTO 2022-03-07 05:51:00 [facility] CBC W/PLT COUNT & AUTO 2022-03-07 05:51:00 [facility] US RENAL COMPLETE 2022-03-06 18:23:00 [facility] SARS-COV2/RT-PCR ([facility] & 2022-03-06 17:36:00 [facility] REF LABS) Center TSH/FREE T4 IF INDICATED 2022-03-06 14:18:00 Aryan Tello [facility] T4, FREE 2022-03-06 14:18:00 Aryan Tello [facility] ED ECG INTERPRETATION 2022-03-06 13:48:12 Aryan Tello [facility] XR CHEST 1 VIEW PORTABLE / 2022-03-06 13:42:00 Aryan Tello [facility] BEDSIDE [facility] B-TYPE NATRIURETIC FACTOR 2022-03-06 13:23:00 Aryan Tello [facility] (BNP) [facility] CBC W/PLT COUNT & AUTO 2022-03-06 13:23:00 Aryan Tello [facility] Medical DIFFERENTIAL [facility] COMPREHENSIVE METABOLIC 2022-03-06 13:23:00 Aryan Tello [facility] PANEL [facility] HIGH SENSITIVITY TROPONIN 2022-03-06 13:23:00 Aryan Tello [facility] I [facility] MAGNESIUM 2022-03-06 13:23:00 Aryan Tello [facility] PHOSPHORUS 2022-03-06 13:23:00 [facility], VENOUS 2022-03-06 13:23:00 [facility] CREATINE KINASE (CK) 2022-03-06 13:23:00 Elisha [facility] CBC W/PLT COUNT & AUTO 2022-03-06 13:23:00 Aryan Tello [facility] DIFFERENTIAL [facility] ECG 12-LEAD 2022-03-06 12:12:56 Unknown, H[facility] ECG 12-LEAD 2022-03-06 12:12:56 Unknown, Hl7 [facility] ECG 12-LEAD 2022-03-06 12:12:56 Unknown, Hl7 [facility] EKG-SCANNED 2022-03-06 00:00:00 Provider, [facility] CBC (WITHOUT DIFFERENTIAL) 2022-02-20 05:10:00 Rufino LazaroFormerly [facility] BASIC METABOLIC PANEL 2022-02-20 05:10:00 Rufino Lazaro Health MAGNESIUM 2022-02-20 05:10:00 Rufino Lazaro PHOSPHORUS 2022-02-20 05:10:00 Rufino Lazaro h INFUSION PUMP 2022-02-19 19:03:50 Rufino Lazaro h COMPREHENSIVE METABOLIC 2022-02-19 06:35:00 Fannie Blake Health PANEL CBC/DIFF 2022-02-19 06:35:00 Fannie Blake alth PHOSPHORUS 2022-02-19 06:35:00 Fannie Blake alth CBC 2022-02-19 06:35:00 Fannie Blake alth URINALYSIS W/REFLEX TO 2022-02-19 00:34:00 Fannie Blake [facility] URINE CULTURE URINALYSIS 2022-02-19 00:34:00 Chadd Palacios URINE CULTURE COLLECTION 2022-02-19 00:34:00 Chadd Palacios [facility] KIT SARS-COV-2, FLU A/B, RSV 2022-02-18 19:00:00 Chadd Palacios [facility] CORONAVIRUS, COVID-19, OLENA 2022-02-18 19:00:00 Chadd Palacios [facility] XRAY CHEST 1 VIEW 2022-02-18 15:23:00 Roz Scales [facility] CONSULT CLINICAL CASE 2022-02-18 14:50:50 Roz Scales [facility] MANAGEMENT (RN/SW) CBC/DIFF 2022-02-18 14:16:00 AlbabSusana [facility] h BASIC METABOLIC PANEL 2022-02-18 14:16:00 Albab [facility] MAGNESIUM 2022-02-18 14:16:00 AlbSusana almeida [facility] h PHOSPHORUS 2022-02-18 14:16:00 Albab Susana [facility] h CREATINE KINASE (CK) 2022-02-18 14:16:00 Yasir [facility] CBC 2022-02-18 14:16:00 AlbSusana almeida [facility] BASIC METABOLIC PANEL 2022-02-11 03:34:00 Antonieta [facility] MAGNESIUM 2022-02-11 03:34:00 CuchaTeresa de la garza [facility] th PHOSPHORUS 2022-02-11 03:34:[address] [facility] CBC (WITHOUT DIFFERENTIAL) 2022-02-11 03:34:00 Long [facility] CBC/DIFF 2022-02-10 03:39:00 [facility] METABOLIC PANEL 2022-02-10 03:39:00 Antoni[facility] CBC 2022-02-10 03:39:00 [facility] THYROID STIMULATING 2022-02-10 03:39:00 JamilahfredericTeresa [facility] HORMONE (TSH) FREE T4 2022-02-10 03:39:[address] [facility] CBC/DIFF 2022-02-09 04:38:00 Daily Islas [facility] BASIC METABOLIC PANEL 2022-02-09 04:38:00 Antonieta [facility] CBC 2022-02-09 04:38:00 Antonieta [facility] CORTISOL, TOTAL 2022-02-08 11:37:00 Jian Schmitt [facility] GLUCOSE POC 2022-02-08 08:07:00 Daily Islas [facility] h CBC (WITHOUT DIFFERENTIAL) 2022-02-08 04:00:00 Jian Schmitt [facility] COMPREHENSIVE METABOLIC 2022-02-08 04:00:00 Jian Schmitt [facility] PANEL PHOSPHORUS 2022-02-08 04:00:00 Jian Schmitt [facility] eah MAGNESIUM 2022-02-08 04:00:00 Jian Schmitt [facility] PT/INR 2022-02-08 04:00:00 Jian Schmitt [facility] URINALYSIS W/REFLEX TO 2022-02-07 18:06:[address] [facility] URINE CULTURE URINALYSIS 2022-02-07 18:06:00 Areli Arciniega [facility] URINE CULTURE COLLECTION 2022-02-07 18:06:00 [facility] KIT ELECTROLYTES, URINE 2022-02-07 18:06:00 Jyoti Carrillo [facility] OSMOLALITY, URINE 2022-02-07 18:06:00 J[facility]oti [facility] SARS-COV-2, FLU A/B, RSV 2022-02-07 18:05:00 Jyoti Carrillo [facility] CORONAVIRUS, COVID-19, OLENA 2022-02-07 18:05:00 Jyoti Carrillo [facility] NUTRITION CONSULT 2022-02-07 17:43:36 Jian Schmitt [facility] ASSESSMENT BASIC METABOLIC PANEL 2022-02-07 17:18:00 Jyoti Carrillo [facility] LACTIC ACID 2022-02-07 14:04:00 Areli Arciniega [facility] LIPASE 2022-02-07 14:03:00 Areli Arciniega [facility] MAGNESIUM 2022-02-07 14:03:00 Areli Arciniega [facility] PHOSPHORUS 2022-02-07 14:03:00 Areli Arciniega [facility] TROPONIN I 2022-02-07 14:03:00 Areli Arciniega [facility] CBC 2022-02-07 14:03:00 Areli Arciniega [facility] CBC/DIFF 2022-02-07 14:03:00 Areli Arciniega [facility] BASIC METABOLIC PANEL 2022-02-07 14:03:00 Areli Arciniega [facility] LIVER PROFILE 2022-02-07 14:03:00 Areli Arciniega alth 12 LEAD EKG 2022-01-21 15:46:10 Ori Goldberg [facility] CBC/DIFF 2022-01-21 04:11:[address] [facility] MAGNESIUM 2022-01-21 04:11:[address] [facility] PHOSPHORUS 2022-01-21 04:11:[address] LindseyT[address] [facility] BASIC METABOLIC PANEL 2022-01-21 04:11:00 Ori Goldberg [facility] CBC 2022-01-21 04:11:[address] LindseyT[address] [facility] CBC/DIFF 2022-01-20 04:37:00 LindseyTien P Lynne Heal MAGNESIUM 2022-01-20 04:37:[address] [facility] PHOSPHORUS 2022-01-20 04:37:[address] [facility] BASIC METABOLIC PANEL 2022-01-20 04:37:00 LindseyTien [facility] CBC 2022-01-20 04:37:00 Lindsey Tien P [facility] MAGNESIUM 2022-01-19 18:09:00 Lindsey Tien P [facility] PHOSPHORUS 2022-01-19 18:09:[address] [facility] BASIC METABOLIC PANEL 2022-01-19 18:09:00 Lindsey, Tien Esther [facility] CORTISOL, TOTAL 2022-01-19 18:09:[address] [facility] URINALYSIS W/REFLEX TO 2022-01-19 17:22:00 Tien Lucas P [facility] URINE CULTURE URINALYSIS 2022-01-19 17:22:[address] [facility] URINE CULTURE COLLECTION 2022-01-19 17:22:00 Noe Lucash [facility] [employer] KIT COMPUTED TOMOGRAPHY 2022-01-19 13:29:00 Noe Lucash P [facility] ABDOMEN AND PELVIS WITHOUT CONTRAST CBC/DIFF 2022-01-19 04:44:00 Noe Lucash P [facility] CBC 2022-01-19 04:44:00 [facility] DIFFER[facility], [facility]UAL (NO 2022-01-19 04:44:00 Lindsey Tien [facility] Health MORPHOLOGY)-WA BASIC METABOLIC PANEL 2022-01-18 17:15:00 Tien Lucas [facility] CBC/DIFF 2022-01-18 04:46:00 Noe Lucash P [facility] MAGNESIUM 2022-01-18 04:46:[address] [facility] PHOSPHORUS 2022-01-18 04:46:00 [facility] BASIC METABOLIC PANEL 2022-01-18 04:46:00 Ori Goldberg [facility] CBC 2022-01-18 04:46:00 [facility]/AB COMBO ROUTINE 2022-01-18 04:46:00 Karin Bassett [facility] SCREENING ENTERIC PATHOGENS NUCLEIC 2022-01-18 03:25:00 Karin Bassett [facility] ACID TEST BASIC METABOLIC PANEL 2022-01-18 00:29:00 Ori Goldberg [facility] BASIC METABOLIC PANEL 2022-01-17 17:07:00 [facility] BASIC METABOLIC PANEL 2022-01-17 13:15:00 Tien Lucasi s Health CALPROTECTIN FECAL 2022-01-17 12:38:00 Tien Lucas ealth FECAL LEUKOCYTES 2022-01-17 12:38:00 Tien Luacs a lt T-TRANSGLUTAMINASE IGA 2022-01-17 12:22:00 Tien Lucas [facility] BASIC METABOLIC PANEL 2022-01-17 08:51:00 [facility] BASIC METABOLIC PANEL 2022-01-17 04:47:00 Tien Lucasi s [facility] CBC/DIFF 2022-01-17 04:47:00 Tien Lucas Heal th MAGNESIUM 2022-01-17 04:47:00 Tien Lucas [facility] PHOSPHORUS 2022-01-17 04:47:00 Tien Lucas [facility] CBC 2022-01-17 04:47:00 Tien Lucas [facility] BASIC METABOLIC PANEL 2022-01-17 00:08:00 T[facility] 12 LEAD EKG 2022-01-16 21:23:25 Tien Lucas [facility] BASIC METABOLIC PANEL 2022-01-16 21:08:00 Tien [facility] XRAY CHEST 2 VIEWS 2022-01-16 19:56:00 Tien Lucas IP CONSULT TO PHYSICAL 2022-01-16 19:17:17 Tien Lucas is [facility] THERAPY CONSULT CLINICAL CASE 2022-01-16 19:17:17 [facility]ien [facility] MANAGEMENT (RN/SW) SEQUENTIAL COMPRESSION 2022-01-16 19:17:17 [facility] PUMP SODIUM, URINE, RANDOM 2022-01-16 16:00:00 Kevin Nieves [facility] CREATININE, URINE, RANDOM 2022-01-16 16:00:00 Kevin Nieves [facility] OSMOLALITY, URINE 2022-01-16 16:00:00 Kevin Nieves [facility] SARS-COV-2, FLU A/B, RSV 2022-01-16 15:20:00 Kevin Nieves [facility] CORONAVIRUS, COVID-19, OLENA 2022-01-16 15:20:00 Kevin Nieves [facility] FOLIC ACID 2022-01-16 14:13:00 Kevin Nieves [facility] ealt CREATININE POC 2022-01-16 13:55:00 Raymon [facility] BMP POC 2022-01-16 13:46:00 Raymon Martin Healt [facility] CBC/DIFF 2022-01-16 12:12:00 Raymon Martin Healt [facility] CBC 2022-01-16 12:12:00 Raymon Martin Healt h BASIC METABOLIC PANEL 2022-01-16 12:11:00 Sadiq Vargas [facility] MAGNESIUM 2022-01-16 12:11:00 Sadiq Vargas [facility] VITAMIN B12 2022-01-16 12:11:00 Kevin Nieves [facility] OSMOLALITY,SERUM 2022-01-16 12:11:00 Kevin Nieves [facility] INFUSION PUMP 2022-01-11 09:21:05 Helene Anderson [facility] GLUCOSE POC 2022-01-11 07:54:00 Helene Anderson BASIC METABOLIC PANEL 2022-01-11 04:07:00 Merissa Richards [facility] MAGNESIUM 2022-01-11 04:07:00 Merissa [facility] PHOSPHORUS 2022-01-11 04:07:00 [facility] CBC/DIFF 2022-01-11 04:06:00 Merissa Richards Healt [facility] IRON PROFILE 2022-01-11 04:06:00 Merissa Richards Healt h FOLIC ACID 2022-01-11 04:06:00 Merissa Richards Healt h CBC 2022-01-11 04:06:00 Merissa Richards Healt h GLUCOSE POC 2022-01-10 18:16:[address] [facility] URINALYSIS 2022-01-10 16:10:00 Merissa Richards [facility] URINALYSIS 2022-01-10 16:10:00 Merissa Richards [facility] SARS-COV-2, FLU A/B, RSV 2022-01-10 15:54:00 Merissa Richards [facility] CORONAVIRUS, COVID-19, OLENA 2022-01-10 15:54:00 Antoine Hester [facility] BASIC METABOLIC PANEL 2022-01-10 15:54:00 Merissa Richards [facility] VITAMIN B12 2022-01-10 15:54:00 Merissa Richards [facility] VBG POC 2022-01-10 11:14:00 Dia Jewell philipp [facility] CBC/DIFF 2022-01-10 11:13:00 Antoine Hester [facility] BASIC METABOLIC PANEL 2022-01-10 11:13:00 Antoine Hester [facility] LACTIC ACID 2022-01-10 11:13:00 Antoine Hester [facility] CBC 2022-01-10 11:13:00 Antoine Hester [facility] LIVER PROFILE 2022-01-10 11:13:00 Merissa Richards [facility] CK, TOTAL 2022-01-10 11:13:00 Merissa Richards [facility] FERRITIN 2022-01-10 11:13:00 Merissa Richards [facility] CREATINE KINASE MB (CKMB) 2022-01-10 11:13:[address] [facility] XRAY CHEST 2 VIEWS 2022-01-08 21:50:14 Tanja Sebastian [facility] CBC/DIFF 2022-01-08 21:27:00 Tanja Sebastian [facility] BASIC METABOLIC PANEL 2022-01-08 21:27:00 Tanja Sebastian [facility] LIVER PROFILE 2022-01-08 21:27:00 Tanja Sebastian [facility] CK, TOTAL 2022-01-08 21:27:00 Tajna Sebastian [facility] TROPONIN I 2022-01-08 21:27:00 Tanja Sebastian [facility] CBC 2022-01-08 21:27:00 Tanja Sebastian [facility] CREATINE KINASE MB (CKMB) 2022-01-08 21:27:00 Tanja Sebastian [place] [id number] LEAD EKG 2022-01-08 20:59:56 Tanja Sebastian [facility] COMP. METABOLIC PANEL 2021-09-14 03:41:00 Mickey Ramos [facility] ([id number]) [facility] CBC WITH DIFF 2021-09-14 03:41:00 Mickey Ramos [place] [facility] CT HEAD WO CONTRAST 2021-09-12 14:10:[address] [facility] TROPONIN I 2021-09-12 13:00:[address] [facility] BASIC METABOLIC PANEL (NA, 2021-09-12 13:00:00 Odin [facility] K, CL, CO2, GLUCOSE, BUN, Medica l Branch CREATININE, CA) CBC WITH DIFF 2021-09-12 13:00:[address] [facility] N-TERMINAL PRO-BNP 2021-09-12 13:00:00 Alona Carty [facility] LIPASE 2021-09-09 05:30:00 Sebastian Pacheco [facility] COMP. METABOLIC PANEL 2021-09-09 05:30:00 Sebastian Pacheco [facility] ([id number]) [facility] CBC WITH DIFF 2021-09-09 05:30:00 Sebastian Pacheco [facility] URINALYSIS 2021-09-08 04:45:00 Sebastian Pacheco [facility] CT ABDOMEN PELVIS W 2021-09-08 02:25:23 Sebastian Pacheco [facility] CONTRAST [facility] LIPASE 2021-09-08 02:02:00 Sebastian Pacheco [facility] COMP. METABOLIC PANEL 2021-09-08 02:02:00 Sebastian Pacheco [facility] ([id number]) [facility] CBC WITH DIFF 2021-09-08 02:02:00 Sebastian Pacheco [facility] LACTIC ACID WHOLE BLOOD 2021-09-08 02:02:00 Sebastian Pacheco [facility] COVID-19 (ID NOW RAPID 2021-09-08 01:54:00 Sebastian Pacheco [facility] TESTING) Medical Branch BASIC METABOLIC PANEL (NA, 2021-09-04 12:30:00 Demario Godoy [facility] K, CL, CO2, GLUCOSE, BUN, Medica l Branch CREATININE, CA) BASIC METABOLIC PANEL (NA, 2021-09-04 12:30:00 Demario Godoy [facility] K, CL, CO2, GLUCOSE, BUN, Medica l Branch CREATININE, CA) SURGICAL PATHOLOGY EXAM 2021-09-03 14:01:00 [facility] COLOSTOMY REVISION 2021-09-03 12:58:00 Mayela [facility] COLOSTOMY REVISION 2021-09-03 12:58:00 [facility] BASIC METABOLIC PANEL (NA, 2021-09-03 11:26:00 Neeru, Cynthia [facility] K, CL, CO2, GLUCOSE, BUN, Medica l Branch CREATININE, CA) CBC WITHOUT DIFF 2021-09-03 11:26:00 Neeru [facility] BASIC METABOLIC PANEL (NA, 2021-09-03 11:26:00 Neeru, Cynthia [facility] K, CL, CO2, GLUCOSE, BUN, Medica l Branch CREATININE, CA) CBC WITHOUT DIFF 2021-09-03 11:26:00 Neeru [facility] TRANSTHORACIC ECHO (TTE) 2021-09-02 21:22:12 Cynthia Siddiqi [facility] COMPLETE W/ CONTRAST Medical [facility] TRANSTHORACIC ECHO (TTE) 2021-09-02 21:22:12 Cynthia Siddiqi [facility] COMPLETE W/ CONTRAST [facility] COVID-19 (ID NOW RAPID 2021-09-02 19:35:00 Demario Godoy [facility] TESTING) Medical Branch LAB ONLY COVID 2021-09-02 19:35:00 Demario Godoy [facility] INTERPRETATION Medical Branch COVID-19 (ID NOW RAPID 2021-09-02 19:35:00 Demario Godoy [facility] TESTING) Medical Branch LAB ONLY COVID 2021-09-02 [...] CA) BLOOD CULTURE SCREEN 2021-09-01 08:03:00 Chasity [facility] BASIC METABOLIC PANEL (NA, 2021-09-01 08:03:00 Siddiqi, Cynthia [facility] K, CL, CO2, GLUCOSE, BUN, Medica l Branch CREATININE, CA) CBC WITH DIFF 2021-09-01 08:03:00 Siddiqi, [facility] BLOOD CULTURE SCREEN 2021-09-01 08:03:00 Chasity [facility] BASIC METABOLIC PANEL (NA, 2021-09-01 08:03:00 Siddiqi, Cynthia [facility] [employer] [facility] [place] K, CL, CO2, GLUCOSE, BUN, Medica l Branch CREATININE, CA) CBC WITH DIFF 2021-09-01 08:03:00 Siddiqi, [facility] MAGNESIUM 2021-09-01 02:09[facility]00 [facility] (NA, 2021-09-01 02:09:00 Roberto [facility] K, CL, CO2, GLUCOSE, BUN, Arpita Medica l Branch CREATININE, CA) MAGNESIUM 2021-09-01 02:09:00 [facility] BASIC METABOLIC PANEL (NA, 2021-09-01 02:09:00 Roberto [facility] K, CL, CO2, GLUCOSE, BUN, Arpita [facility]ica [facility] CREATININE, CA) LACTIC ACID WHOLE BLOOD 2021-08-31 12:40:00 Siddiqi, [facility] LACTIC ACID WHOLE BLOOD 2021-08-31 12:40:00 Siddiqi, [facility] BASIC METABOLIC PANEL (NA, 2021-08-31 11:44:00 [facility] K, CL, CO2, GLUCOSE, BUN, Medica l Branch CREATININE, CA) BASIC METABOLIC PANEL (NA, 2021-08-31 11:44:00 Chasity, [facility] K, CL, CO2, GLUCOSE, BUN, Medica l Branch CREATININE, CA) BASIC METABOLIC PANEL (NA, 2021-08-31 06:29:00 [facility] K, CL, CO2, GLUCOSE, BUN, Medica l Branch CREATININE, CA) LACTIC ACID WHOLE BLOOD 2021-08-31 06:29:00 [facility] BASIC METABOLIC PANEL (NA, 2021-08-31 06:29:00 [facility], CO2, GLUCOSE, BUN, Medica l Branch CREATININE, CA) LACTIC ACID WHOLE BLOOD 2021-08-31 06:29:00 [facility] BLOOD CULTURE SCREEN 2021-08-31 06:28:00 [facility] B[facility]OD CULT[facility] WORKUP 2021-08-31 06:28:00 [facility] GRAM POSITIVE BLOOD 2021-08-31 06:28:00 [facility] PROBE-AEROBIC BLOOD CULTURE SCREEN 2021-08-31 06:28:00 Chasity [facility] BLOOD CULTURE WORKUP 2021-08-31 06:28:00 Chasity [facility] GRAM POSITIVE BLOOD 2021-08-31 06:28:00 Chasity [facility] PATHOGENS DNA [facility] PROBE-AEROBIC XR CHEST 2 VW 2021-08-31 03:08:00 Riccardo [facility] XR CHEST 2 VW 2021-08-31 03:08:00 Riccardo [facility] OSMOLALITY, SERUM OR 2021-08-31 02:44:00 Chasity [facility] TROPONIN I 2021-08-31 02:44:00 Riccardo [facility] THYROID STIMULATING 2021-08-31 02:44:00 Chasity [facility] HORMONE [facility] BASIC METABOLIC PANEL (NA, 2021-08-31 02:44:00 Riccardo [facility] K, CL, CO2, GLUCOSE, BUN, Merissa [facility] CREATININE, CA) OSMOLALITY, SERUM OR 2021-08-31 02:44:00 Chasity [facility] TROPONIN I 2021-08-31 02:44:00 Riccardo [facility] THYROID STIMULATING 2021-08-31 02:44:00 Chasity [facility] BASIC METABOLIC PANEL (NA, 2021-08-31 02:44:00 Riccardo [facility] K, CL, CO2, GLUCOSE, BUN, Merissa [facility] CREATININE, CA) OSMOLALITY URINE 2021-08-31 00:08:00 Chasity [facility] URINALYSIS 2021-08-31 00:08:00 Riccardo [facility] SODIUM, URINE RANDOM 2021-08-31 00:08:00 Chasity [facility] CHLORIDE, URINE RANDOM 2021-08-31 00:08:00 Chasity [facility] OSMOLALITY URINE 2021-08-31 00:08:00 Chasity [facility] URINALYSIS 2021-08-31 00:08:00 [facility]INE RANDOM 2021-08-31 00:08:00 [facility] CHLORIDE, URINE RANDOM 2021-08-31 00:08:00 Gaspar [facility] TROPONIN I 2021-08-30 23:27:00 Riccardo [facility] COMP. METABOLIC PANEL 2021-08-30 23:27:00 Riccardo [facility] ([id number] Named [facility] CBC WITH DIFF 2021-08-30 23:27:00 Riccardo [facility] N-TERMINAL PRO-BNP 2021-08-30 23:27:00 Gayatri Gu [facility] TROPONIN I 2021-08-30 23:27:00 [facility]IC [facility]EL 2021-08-30 23:27:00 Riccardo [facility] ([id number]) [facility] CBC WITH DIFF 2021-08-30 23:27:00 [facility] N-[facility]MINAL PRO-BNP 2021-08-30 23:27:00 Gayatri Gu [facility] HB ECG ROUTINE & RHYTHM 2021-08-30 23:04:48 Gayatri Gu Un [facility] HB ECG ROUTINE & RHYTHM 2021-08-30 23:04:48 Gayatri Gu Un [facility] XR CHEST 1 VW 2021-08-30 00:31:51 Alvarez Austin [facility] POCT RAPID STREP SCREEN 2021-08-30 00:24:00 Alvarez Austin [facility] FOR GROUP A Medical Branch GALV ONLY - INFLUENZA A B 2021-08-30 00:15:00 Alvarez Austin [facility] RSV PCR Medical Branch COVID-19 (MOLECULAR 2021-08-30 00:15:00 Alvarez Austin [facility] TESTING Medical Branch NUCLEIC ACID AMPLIFICATION) PREALBUMIN, SERUM 2021-08-05 10:46:00 Cesar, [facility] PHOSPHORUS 2021-08-05 10:46:00 Cesar, [facility] ALBUMIN 2021-08-05 10:46:00 Cesar, [facility] MAGNESIUM 2021-08-05 10:46:00 Cesar, [facility] BASIC METABOLIC PANEL (NA, 2021-08-05 10:46:00 Cesar, Edisonsc [facility] K, CL, CO2, GLUCOSE, BUN, Medica l Branch CREATININE, CA) CBC WITH DIFF 2021-08-05 10:46:[address] [facility] COVID-19 (ID NOW RAPID 2021-08-05 00:29:00 Cesar, [facility] TESTING) Medical Branch PHOSPHORUS 2021-08-04 11:37:00 Hakeem Jo [facility] MAGNESIUM 2021-08-04 11:37:00 Hakeem Jo [facility] BASIC METABOLIC PANEL (NA, 2021-08-04 11:37:00 Hakeem Jo [facility] K, CL, CO2, GLUCOSE, BUN, [facility] CREATININE, CA) CBC WITH DIFF 2021-08-04 11:37:00 Hakeem Jo [facility] PHOSPHORUS 2021-08-03 10:36:00 Hakeem Jo [facility] MAGNESIUM 2021-08-03 10:36:00 Hakeem Jo [facility] BASIC METABOLIC PANEL (NA, 2021-08-03 10:36:00 Hakeem Jo [facility] [place] K, CL, CO2, GLUCOSE, BUN, [facility] CREATININE, CA) CBC WITH DIFF 2021-08-03 10:36:00 Hakeem Jo [facility] PHOSPHORUS 2021-08-02 10:53:00 [facility] 2021-08-02 10:53:00 [facility] BASIC METABOLIC PANEL (NA, 2021-08-02 10:53:00 Hakeem [facility], [facility] [place] [facility], CL, CO2, GLUCOSE, BUN, [facility] CREATININE, CA) CBC WITH DIFF 2021-08-02 10:53:00 [facility]US 2021-08-01 10:03:00 [facility] MAG[facility]IUM 2021-08-01 10:03:00 [facility] BASIC METABOLIC PANEL (NA, 2021-08-01 10:03:00 Hakeem [facility], [facility], CL, CO2, GLUCOSE, BUN, [place] CREATININE, CA) CBC WITH DIFF 2021-08-01 10:03:00 [facility] PREALBUMIN, SERUM 2021-07-31 10:22:00 Antonino jin [facility] Leda, [place] [facility] h PHOSPHORUS 2021-07-31 10:22:00 Hakeem Jo [facility] MAGNESIUM 2021-07-31 10:22:00 [facility] BASIC METABOLIC PANEL (NA, 2021-07-31 10:22:00 Hakeem Jo, [facility] [place] K, CL, CO2, GLUCOSE, BUN, [facility] CREATININE, CA) CBC WITH DIFF 2021-07-31 10:22:00 [facility] COVID-19 (ID NOW RAPID 2021-07-30 06:13:00 [facility] TEST[facility]) Medical Branch LAB ONLY COVID 2021-07-30 06:13:00 Jonah Rees [facility] INTERPRETATION [facility] CT ABDOMEN PELVIS W 2021-07-30 05:19:01 Jonah Rees [facility] CONTRAST [facility] COMP. METABOLIC PANEL 2021-07-30 03:25:00 Jonah Rees [facility] ([id number]) Medical Lorenzo LACTIC ACID WHOLE BLOOD 2021-07-30 02:53:00 NegritaJonah escoto [facility] LIPASE 2021-07-30 02:52:00 NegritaJonah escoto [facility] CBC WITH DIFF 2021-07-30 02:52:00 NegritaJonah escoto [facility] CONSENT/REFUSAL FOR 2021-07-30 02:09:09 Doctor Unassigned, [facility] DIAGNOSIS AND TREATMENT [facility] PHOSPHORUS 2021-07-26 12:30:00 Antonino Dietrich [facility] Leda, [place] [facility]anc h MAGNESIUM 2021-07-26 12:30:00 Antonino Dietrich [facility] Leda, [place] [facility] BASIC METABOLIC PANEL (NA, 2021-07-26 12:30:00 Antonino Karlo de [facility] [place] K, CL, CO2, GLUCOSE, BUN, Leda, [place] [facility] ical [facility] CREATININE, CA) CBC WITH DIFF 2021-07-26 12:30:00 Antonino Dietrich [facility] L[place], [place] [facility] h PHOSPHORUS 2021-07-25 11:32:00 Hakeem Jo [facility] MAGNESIUM 2021-07-25 11:32:00 Hakeem Jo [facility] BASIC METABOLIC PANEL (NA, 2021-07-25 11:32:00 Antonino [facility] [place] K, CL, CO2, GLUCOSE, BUN, Leda, [place] [facility] ical [facility] CREATININE, CA) CBC WITH DIFF 2021-07-25 11:32:00 Antonino Poli [facility] L[place], [place] [facility] h CBC WITH DIFF 2021-07-25 04:13:[address] [facility] PHOSPHORUS 2021-07-24 12:18:00 Cesar, [facility] MAGNESIUM 2021-07-24 12:18:00 Cesar, [facility] BASIC METABOLIC PANEL (NA, 2021-07-24 12:18:00 Cesar, Jessica U [facility] K, CL, CO2, GLUCOSE, BUN, Medica l Branch CREATININE, CA) COVID-19 (ID NOW RAPID 2021-07-23 15:23:00 Flaco Lemus [facility] TESTING) Medical Branch LAB ONLY COVID 2021-07-23 15:23:00 [facility] URINALYSIS 2021-07-23 12:49:00 Hakeem Jo [facility] PHOSPHORUS 2021-07-23 12:42:00 Hakeem Jo [facility] MAGNESIUM 2021-07-23 12:42:00 [facility] BASIC METABOLIC PANEL (NA, 2021-07-23 12:42:00 Beau Benedict [facility] K, CL, CO2, GLUCOSE, BUN, [facility] CREATININE, CA) CBC WITH DIFF 2021-07-23 12:42:00 [facility]BD[facility]EN PELVIS WO 2021-07-23 08:55:17 Flaco Lemus [facility] CONTRAST [facility] EXTERNAL PROVIDER RECORDS 2021-06-25 05:01:00 Doctor Unassigned, [facility] BASIC METABOLIC PANEL (NA, 2021-06-03 10:37:00 Shweta Anderson [facility] K, CL, CO2, GLUCOSE, BUN, Medica l Branch CREATININE, CA) BASIC METABOLIC PANEL (NA, 2021-06-02 10:54:00 Shweta Anderson [facility] K, CL, CO2, GLUCOSE, BUN, Medica l Branch CREATININE, CA) CLOSTRIDIUM DIFFICILE 2021-06-01 22:51:00 Charly Fowler [facility] F[facility]AL PATHOGENS BY PCR 2021-06-01 22:51:00 Charly Fowler [facility] BASIC METABOLIC PANEL (NA, 2021-06-01 15:42:00 Shweta Anderson [facility] K, CL, CO2, GLUCOSE, BUN, Medica l Branch CREATININE, CA) LACTIC ACID WHOLE BLOOD 2021-06-01 05:38:00 Clementine Castellon [facility] CT ABDOMEN PELVIS W 2021-05-31 23:25:45 Willie Garrett [facility] CONTRAST [facility] LIPASE 2021-05-31 22:44:00 Willie Garrett [facility] TROPONIN I 2021-05-31 22:44:00 Willie Garrett [facility] COMP. METABOLIC PANEL 2021-05-31 22:44:00 Willie Garrett [facility] ([id number]) [facility] CBC WITH DIFF 2021-05-31 22:44:00 Willie Garrett [facility] COVID-19 (ID NOW RAPID 2021-05-31 22:44:00 Willie Garrett [facility] TESTING) Medical Branch LAB ONLY COVID 2021-05-31 22:44:00 Willie Garrett [facility] INTERPRETATION [facility] PHOSPHORUS 2021-05-21 09:03:[address] [facility] MAGNESIUM 2021-05-21 09:03:[address] [facility] BASIC METABOLIC PANEL (NA, 2021-05-21 09:03:00 Agatha Noonan [facility] K, CL, CO2, GLUCOSE, BUN, Medica l Branch CREATININE, CA) CBC WITH DIFF 2021-05-21 09:03:00 Agatha Noonan [facility] XR KUB 2021-05-20 20:02:49 Andrzej [facility] LIPASE 2021-05-20 20:00:00 Bernardo Donnelly [facility] COMP. METABOLIC PANEL 2021-05-20 20:00:00 Bernardo Donnelly [facility] ([id number]) Medical Branch CBC WITH DIFF 2021-05-20 20:00:00 Andrzej [facility] LACTIC ACID WHOLE BLOOD 2021-05-20 20:00:00 Bernardo Donnelly [facility] COVID-19 (ID NOW RAPID 2021-05-20 20:00:00 Bernardo Donnelly [facility] TESTING) Medical Branch BASIC METABOLIC PANEL (NA, 2021-05-08 10:04:00 [facility] K, CL, CO2, GLUCOSE, BUN, Medica l Lorenzo CREATININE, CA) CBC WITH DIFF 2021-05-08 10:04:00 beau [facility] XR KUB 2021-05-08 09:44:22 Beto Adena [facility] XR ABDOMEN 1 VW 2021-05-08 05:32:36 Irene [facility], [facility] CT ABDOMEN PELVIS W 2021-05-08 01:08:43 Alona Pérez [facility] CONTRAST [facility] HEPATIC FUNCTION PANEL 2021-05-08 00:49:00 Beto [facility] ([id number]) (ALB,T.PRO,BILI [facility] T,BU/BC,ALT,AST,ALK PHOS) BASIC METABOLIC PANEL (NA, 2021-05-08 00:49:00 Alona Pérez [facility] K, CL, CO2, GLUCOSE, BUN, Medica l Lorenzo CREATININE, CA) CBC WITH DIFF 2021-05-08 00:49:00 Beto Adena [facility] COVID-19 (ID NOW RAPID 2021-05-08 00:42:00 Beto [facility] TESTING) Medical Branch LAB ONLY COVID 2021-05-08 00:42:00 Beto [facility] INTERPRETATION Medical Branch NOTICE OF PRIVACY 2020-09-27 01:47:31 Doctor Unassigned, [facility] PRACTICES [facility] CONSENT/REFUSAL FOR 2020-09-27 01:47:01 Doctor Unassigned, [facility] DIAGNOSIS AND TREATMENT [facility] BASIC METABOLIC PANEL (NA, 2020-08-23 10:03:00 [facility], CO2, GLUCOSE, BUN, Medica l Branch CREATININE, CA) CBC WITHOUT DIFF 2020-08-23 10:03:00 Judith Ingram [facility] COVID-19 (ID NOW RAPID 2020-08-23 00:23:00 Funmilayo Pinzon [facility] TESTING) Medical Branch HB ECG ROUTINE & RHYTHM 2020-08-22 22:19:37 Funmilayo Pinzon [facility] STRIP [facility] HEPATIC FUNCTION PANEL 2020-08-22 22:08:00 Funmilayo Pinzon [facility] ([id number]) (ALB,T.PRO,BILI Medical Branch T,BU/BC,ALT,AST,ALK PHOS) BASIC METABOLIC PANEL (NA, 2020-08-22 22:08:00 Nallely Pinzon [facility] K, CL, CO2, GLUCOSE, BUN, Medica l Branch CREATININE, CA) CBC WITH DIFF 2020-08-22 22:08:00 Funmilayo Pinzon [facility] CT SOFT TISSUE NECK W 2020-07-10 00:21:10 Juan M Aguillon [facility] URINALYSIS 2020-07-09 23:07:00 Juan M Aguillon [facility] BASIC METABOLIC PANEL (NA, 2020-07-09 22:51:00 Kirk Aguillon [facility] K, CL, CO2, GLUCOSE, BUN, Medica l Branch CREATININE, CA) CBC WITH DIFF 2020-07-09 22:51:00 Juan M Aguillon [facility] RAPID STREP SCREEN FOR 2020-07-09 22:51:00 Juan M Aguillon [facility] GROUP A Medical Branch COVID-19 (ID NOW RAPID 2020-07-09 22:51:00 Juan M Aguillon [facility] TESTING) Medical Branch CT ABDOMEN PELVIS W 2020-06-05 13:02:55 Travis Valdez [facility] Branch URINALYSIS 2020-06-05 13:02:00 More Goetz [facility] EKG-12 LEAD 2020-06-05 11:57:46 More Goetz [facility] LIPASE 2020-06-05 11:57:00 More Goetz [facility] TROPONIN I 2020-06-05 11:57:00 More Goetz [facility] HEPATIC FUNCTION PANEL 2020-06-05 11:57:00 More Goetz [facility] ([id number]) ([facility] T,BU/BC,ALT,AST,ALK PHOS) BASIC METABOLIC PANEL (NA, 2020-06-05 11:57:00 More Goetz [facility] K, CL, CO2, GLUCOSE, BUN, Medica l Branch CREATININE, CA) CBC WITH DIFF 2020-06-05 11:57:00 More Goetz [facility] LACTIC ACID WHOLE BLOOD 2020-06-05 11:57:00 More Goetz U [facility] PHOSPHORUS 2020-05-31 07:54:00 Patricia Katia Sandra [facility] MAGNESIUM 2020-05-31 07:54:00 Patricia Katia Sandra [facility] BASIC METABOLIC PANEL (NA, 2020-05-31 07:54:00 Katia Gomez [facility] K, CL, CO2, GLUCOSE, BUN, Medica l Branch CREATININE, CA) CBC WITH DIFF 2020-05-31 07:54:00 Katia Gomez [facility] IR CHANGE OF ABSCESS DRAIN 2020-05-30 19:33:43 Ashwin Marshall [facility] PHOSPHORUS 2020-05-30 08:19:00 Lambangeloon Janet, [facility] MAGNESIUM 2020-05-30 08:19:00 Lambreton Janet, [facility] BASIC METABOLIC PANEL (NA, 2020-05-30 08:19:00 Socorro escoto [facility] K, CL, CO2, GLUCOSE, BUN, Rex Medica l Branch CREATININE, CA) PHOSPHORUS 2020-05-29 06:43:00 Lambangeloon Janet, [facility] MAGNESIUM 2020-05-29 06:43:00 Lambangeloon Janet, [facility] BASIC METABOLIC PANEL (NA, 2020-05-29 06:43:00 Lambreton Carlos a, [facility] K, CL, CO2, GLUCOSE, BUN, Rex [facility]ica [facility] CREATININE, CA) PHOSPHORUS 2020-05-28 09:08:00 Lambreton Gonzales, [facility] MAGNESIUM 2020-05-28 09:08:00 Lambreton Gonzales, [facility] BASIC METABOLIC PANEL (NA, 2020-05-28 09:08:00 Lambreton Carlos a, [facility] K, CL, CO2, GLUCOSE, BUN, Rex [facility] CREATININE, CA) PHOSPHORUS 2020-05-27 09:33:00 Lambreton Gonzales, [facility] MAGNESIUM 2020-05-27 09:33:00 [facility] BAS[facility] METABOLIC PANEL (NA, 2020-05-27 09:33:00 Lambreton Carlos a, [facility] K, CL, CO2, GLUCOSE, BUN, [facility] CREATININE, CA) PHOSPHORUS 2020-05-26 09:27:00 Lambreton Gonzales, [facility] MAGNESIUM 2020-05-26 09:27:00 [facility] PANEL (NA, 2020-05-26 09:27:00 Lambreton Carlos a, [facility] K, CL, CO2, GLUCOSE, BUN, Rex [facility] CREATININE, CA) PHOSPHORUS 2020-05-25 21:42:00 Lambreton Gonzales, [facility] MAGNESIUM 2020-05-25 21:42:00 [facility] BASIC METABOLIC PANEL (NA, 2020-05-25 21:42:00 Lambreton Carlos a, [facility] [place] K, CL, CO2, GLUCOSE, BUN, [facility] CREATININE, CA) CBC WITH DIFF 2020-05-25 21:42:00 [facility] X[facility] KUB 2020-05-25 20:39:54 Socorro [facility] PHOSPHORUS 2020-05-25 08:48:00 Lambreton [facility] MAGNESIUM 2020-05-25 08:48:00 Lambreton [facility] BASIC METABOLIC PANEL (NA, 2020-05-25 08:48:00 Silviaon Carlos a, [facility] K, CL, CO2, GLUCOSE, BUN, Rex [facility] CREATININE, CA) PHOSPHORUS 2020-05-24 20:41:00 Lambreton [facility] MAGNESIUM 2020-05-24 20:41:00 Lambreton [facility] BASIC METABOLIC PANEL (NA, 2020-05-24 20:41:00 [facility], [facility] K, CL, CO2, GLUCOSE, BUN, Rex [facility] CREATININE, CA) IR CHANGE OF ABSCESS DRAIN 2020-05-24 17:57:11 Vance Stafford [facility] IR ASPIRATION ABSCESS 2020-05-24 17:24:40 Randa [facility] BULLA OR CYST BY NEEDLE [facility] ASPIRATE OR ABSCESS 2020-05-24 17:23:00 Nixon Prince [facility] CULTURE(AEROBIC/ANAEROBIC) Medic me Branch CBC WITH DIFF 2020-05-24 11:08:00 Alondra Fay [facility] Anahi [facility] CT ABDOMEN PELVIS W 2020-05-23 15:02:24 Julio Tolentino [facility] CONTRAST [facility] BASIC METABOLIC PANEL (NA, 2020-05-23 09:45:00 Alondra Fay [facility] K, CL, CO2, GLUCOSE, BUN, Anahi [facility] CREATININE, CA) COVID-19 (PCR MOLECULAR 2020-05-23 06:53:00 Bia Pedro [facility] TESTING) Medical Branch URINALYSIS 2020-05-22 21:41:00 Alex Lopez [facility] [place] [facility] LIPASE 2020-05-22 21:26:00 Colette [facility] HEPATIC FUNCTION PANEL 2020-05-22 21:26:00 Alex Lopez [facility] ([id number]) (ALB,T.PRO,BILI Medical Branch T,BU/BC,ALT,AST,ALK PHOS) BASIC METABOLIC PANEL (NA, 2020-05-22 21:26:00 Alex Lopez [facility] K, CL, CO2, GLUCOSE, BUN, Medica l Branch CREATININE, CA) CBC WITH DIFF 2020-05-22 21:26:00 Colette Gageri [facility] PROTHROMBIN TIME / INR 2020-05-22 21:26:00 Colette Gageri [facility] ACTIVATED PARTIAL THRMPLAS 2020-05-22 21:26:00 Alex Lopez [facility] SELENA [facility] XR CHEST 1 VW 2020-05-22 20:55:00 Alex Lopez [facility] HOSPITAL ADMISSION 2020-05-22 05:01:00 Doctor Unassigned, [facility] URINALYSIS 2020-05-20 09:58:00 Jonah Rodriguez [facility] COVID-19 (ID NOW RAPID 2020-05-20 09:48:00 Jonah Rodriguez [facility] TESTING) Medical Branch CT ABDOMEN PELVIS W 2020-05-20 04:07:43 Jonah Rodriguez [facility] CONTRAST [facility] LIPASE 2020-05-20 03:09:00 Jonah Rodriguez [facility] MAGNESIUM 2020-05-20 03:09:00 Michael [facility] TROPONIN I 2020-05-20 03:09:00 Michael [facility] COMP. METABOLIC PANEL 2020-05-20 03:09:00 Jonah Rodriguez [facility] ([id number]) Medical Branch CBC WITH DIFF 2020-05-20 03:09:00 Jonah Rodriguez [facility] PHOSPHORUS 2020-05-10 09:13:00 [facility] MAGNESIUM 2020-05-10 09:13:00 [place], [facility] BASIC METABOLIC PANEL (NA, 2020-05-10 09:13:00 [place], Julio [facility] [place] K, CL, CO2, GLUCOSE, BUN, Medica l Branch CREATININE, CA) CBC WITH DIFF 2020-05-10 09:13:00 Randa [facility] PHOSPHORUS 2020-05-09 10:28:00 [place] [facility] MAGNESIUM 2020-05-09 10:28:00 [place] [facility] BASIC METABOLIC PANEL (NA, 2020-05-09 10:28:00 [place], Julio [facility] [place] K, CL, CO2, GLUCOSE, BUN, Medica l Branch CREATININE, CA) CBC WITH DIFF 2020-05-09 10:28:00 Randa [facility] PHOSPHORUS 2020-05-08 11:18:00 Randa [facility] MAGNESIUM 2020-05-08 11:18:00 Randa [facility] BASIC METABOLIC PANEL (NA, 2020-05-08 11:18:00 [place], [facility] [place] K, CL, CO2, GLUCOSE, BUN, Medica l Branch CREATININE, CA) CBC WITH DIFF 2020-05-08 11:18:00 Randa [facility] PHOSPHORUS 2020-05-07 09:21:00 [facility] 2020-05-07 09:21:00 [facility] BASIC METABOLIC PANEL (NA, 2020-05-07 09:21:00 Randa Julio [facility] [place] K, CL, CO2, GLUCOSE, BUN, Medica l Branch CREATININE, CA) CBC WITH DIFF 2020-05-07 09:21:00 Randa [facility] PHOSPHORUS 2020-05-06 09:57:00 Randa [facility] MAGNESIUM 2020-05-06 09:57:00 [facility] BASIC METABOLIC PANEL (NA, 2020-05-06 09:57:00 [place], Julio [facility] [place] K, CL, CO2, GLUCOSE, BUN, Medica l Branch CREATININE, CA) CBC WITH DIFF 2020-05-06 09:56:00 [facility] IR DRAINAGE BY CATHETER 2020-05-05 19:55:00 [facility] PERITONEAL OR Medical Lorenzo RETROPERITONEAL BODY FLUID 2020-05-05 19:06:00 Nixon Prince [facility] CULTURE(AEROBIC/ANAEROBIC) [facility] FUNGUS (ROUTINE) CULTURE 2020-05-05 19:06:00 Nixon Prince [facility] BODY FLUID 2020-05-05 19:00:00 [facility] CULT[facility](AEROBIC/ANAEROBIC) [facility] FUNGUS (ROUTINE) CULTURE 2020-05-05 19:00:00 Ivan Guthrie [facility] PREPARE PACKED RBC 2020-05-05 15:59:33 [facility] 2020-05-05 10:55:00 [facility] PREAL[facility]IN, SERUM 2020-05-05 08:56:00 [facility] 2020-05-05 08:56:00 [facility] MAGNESIUM 2020-05-05 08:56:00 [facility] BASIC METABOLIC PANEL (NA, 2020-05-05 08:56:00 Randa [facility] K, CL, CO2, GLUCOSE, BUN, [facility] CREATININE, CA) CBC WITH DIFF 2020-05-05 08:56:00 [facility] URINALYSIS 2020-05-05 05:11:00 Lora Hall [facility] CT ABDOMEN PELVIS W 2020-05-05 04:18:56 Lora Hall [facility] CONTRAST [facility] LIPASE 2020-05-05 02:35:00 Lora Hall [facility] COMP. METABOLIC PANEL 2020-05-05 02:35:00 Lora Hall [facility] ([id number]) [facility] CBC WITH DIFF 2020-05-05 02:35:00 Lora Hall [facility] COVID-19 (ID NOW RAPID 2020-05-05 02:27:00 Lora Hall [facility] TESTING) Medical Branch HOSPITAL ADMISSION 2020-05-04 05:01:00 Doctor Unassigned, [facility] CBC WITH DIFF 2020-05-01 11:32:00 Randa [facility] PHOSPHORUS 2020-05-01 11:32:00 [facility] MAG[facility]ESIUM 2020-05-01 11:32:00 [facility] BASIC METABOLIC PANEL (NA, 2020-05-01 11:32:00 Randa [facility] K, CL, CO2, GLUCOSE, BUN, Medica l Branch CREATININE, CA) CBC WITH DIFF 2020-04-29 11:31:00 [facility] PHOSPH[facility]US 2020-04-29 11:31:00 Randa, [facility] MAGNESIUM 2020-04-29 11:31:00 [facility] BASIC METABOLIC PANEL (NA, 2020-04-29 11:31:00 Randa [facility] K, CL, CO2, GLUCOSE, BUN, Medica l Branch CREATININE, CA) CBC WITH DIFF 2020-04-28 08:51:00 Becky, [facility] MAGNESIUM 2020-04-28 08:51:00 eBcky, [facility] BASIC METABOLIC PANEL (NA, 2020-04-28 08:51:00 Becky, [facility] K, CL, CO2, GLUCOSE, BUN, Cathryn [facility]ica [facility] CREATININE, CA) CBC WITH DIFF 2020-04-27 09:34:00 Becky, [facility] MAGNESIUM 2020-04-27 09:34:00 Becky, [facility] BASIC METABOLIC PANEL (NA, 2020-04-27 09:34:00 Becky, [facility] K, CL, CO2, GLUCOSE, BUN, Cathryn [facility] CREATININE, CA) CBC WITH DIFF 2020-04-26 09:27:00 Becky, [facility] MAGNESIUM 2020-04-26 09:27:00 Becky, [facility] BASIC METABOLIC PANEL (NA, 2020-04-26 09:27:00 Becky, [facility] K, CL, CO2, GLUCOSE, BUN, Cathryn [facility] CREATININE, CA) CBC WITH DIFF 2020-04-25 08:59:00 Becky, [facility] MAGNESIUM 2020-04-25 08:59:00 Becky [facility] BASIC METABOLIC PANEL (NA, 2020-04-25 08:59:00 Becky, [facility] K, CL, CO2, GLUCOSE, BUN, Cathryn [facility] CREATININE, CA) CBC WITH DIFF 2020-04-24 09:44:00 Becky, [facility] MAGNESIUM 2020-04-24 09:44:00 Becky, [facility] BASIC METABOLIC PANEL (NA, 2020-04-24 09:44:00 Becky, [facility] K, CL, CO2, GLUCOSE, BUN, Cathryn [facility] CREATININE, CA) CT ABDOMEN PELVIS W 2020-04-23 23:24:02 Grant Cheema, [facility] CONTRAST [facility] CT THORAX W CONTRAST 2020-04-23 23:24:02 Grant Cheema, [facility] COVID-19 (ID NOW RAPID 2020-04-23 15:06:00 Grant Cheema, [facility] TESTING) [facility] PREALBUMIN, SERUM 2020-04-23 13:42:00 Grant Cheema, [facility] POTASSIUM SERUM 2020-04-23 13:42:00 Becky [facility] CBC WITH DIFF 2020-04-23 10:17:00 Becky [facility] MAGNESIUM 2020-04-23 10:17:00 Becky, [facility] BASIC METABOLIC PANEL (NA, 2020-04-23 10:17:00 Becky, [facility] K, CL, CO2, GLUCOSE, BUN, Cathryn Medica [facility] CREATININE, CA) XR CHEST 1 VW 2020-04-23 10:03:00 Becky, [facility] MAGNESIUM 2020-04-22 10:37:00 Becky, [facility] BASIC METABOLIC PANEL (NA, 2020-04-22 10:37:00 Becky [facility] K, CL, CO2, GLUCOSE, BUN, Cathryn [facility] CREATININE, CA) CBC WITH DIFF 2020-04-22 10:30:00 Becky [facility] XR CHEST 1 VW 2020-04-22 07:30:00 Becky [facility] CBC WITH DIFF 2020-04-21 13:09:00 Becky [facility] MAGNESIUM 2020-04-21 13:09:00 Becky [facility] BASIC METABOLIC PANEL (NA, 2020-04-21 13:09:00 Becky [facility] K, CL, CO2, GLUCOSE, BUN, Cathryn [facility] CREATININE, CA) XR CHEST 1 VW 2020-04-21 06:41:00 Grant Cheema [facility] XR CHEST 1 2020-04-20 11:03:41 Grant Cheema [facility] CBC WITH DIFF 2020-04-20 09:45:00 Katrina [facility] PREALBUMIN, SERUM 2020-04-20 09:45:00 Grant Cheema [facility] PHOSPHORUS 2020-04-20 09:45:00 Carola [facility] MAGNESIUM 2020-04-20 09:45:00 Katrina [facility] BASIC METABOLIC PANEL (NA, 2020-04-20 09:45:00 Yosvany Herndon [facility] K, CL, CO2, GLUCOSE, BUN, Medica l Branch CREATININE, CA) XR CHEST 1 VW 2020-04-19 10:13:45 Becky [facility] CBC WITH DIFF 2020-04-19 10:10:00 Katrina [facility] PHOSPHORUS 2020-04-19 10:10:00 Carola [facility] MAGNESIUM 2020-04-19 10:10:00 Katrina [facility] BASIC METABOLIC PANEL (NA, 2020-04-19 10:10:00 [facility], CL, CO2, GLUCOSE, BUN, Medica l Branch CREATININE, CA) XR CHEST 1 VW 2020-04-18 11:01:00 Becky [facility] CBC WITH DIFF 2020-04-18 10:19:00 [facility] 2020-04-18 10:19:00 Carola [facility] MAGNESIUM 2020-04-18 10:19:00 Katrina [facility] BASIC METABOLIC PANEL (NA, 2020-04-18 10:19:00 Katrina [facility] K, CL, CO2, GLUCOSE, BUN, Medica l Branch CREATININE, CA) XR CHEST 1 VW 2020-04-17 18:58:00 [facility]FF 2020-04-17 09:33:00 Katrina [facility] PHOSPHORUS 2020-04-17 09:33:00 Carola [facility] MAGNESIUM 2020-04-17 09:33:00 Katrina [facility] BASIC METABOLIC PANEL (NA, 2020-04-17 09:33:00 Katrina [facility] [address] K, CL, CO2, GLUCOSE, BUN, Medica l Branch CREATININE, CA) XR CHEST 1 VW 2020-04-17 08:52:00 Grant Cheema [facility] XR CHEST 1 VW 2020-04-16 23:45:00 [facility] B[facility] FL[facility] 2020-04-16 21:50:00 [facility] CULTURE(AEROBIC/ANAEROBIC) Medic al Branch FUNGUS (ROUTINE) CULTURE 2020-04-16 21:50:00 Rivera, [facility] CYTO PLEURAL FLUID 2020-04-16 21:50:00 Jamie Staffordalan [facility] LDH TOTAL BODY FLUID 2020-04-16 21:50:00 Jamie Staffordalan [facility] AMYLASE BODY FLUID 2020-04-16 21:50:00 Rivera Vance [facility] GLUCOSE BODY FLUID 2020-04-16 21:50:00 Rivera [facility] PH, BODY FLUID 2020-04-16 21:50:00 Rivera [facility] T.PROTEIN BODY FLUID 2020-04-16 21:50:00 Rivera Vance [facility] BODY FLUID DIRECT COUNT 2020-04-16 21:50:00 Jamie Staffordalan [facility] IR PLEURAL DRAINAGE WITH 2020-04-16 21:36:25 Rosaura Pena [facility] TUBE WITH IMAGING [facility] PROTHROMBIN TIME / INR 2020-04-16 16:07:00 Rosaura Pena [facility] CBC WITH DIFF 2020-04-16 10:07:00 Katrina [facility] PHOSPHORUS 2020-04-16 10:07:00 Sabi Srivastava [facility] MAGNESIUM 2020-04-16 10:07:00 Katrina [facility] BASIC METABOLIC PANEL (NA, 2020-04-16 10:07:00 [facility] K, CL, CO2, GLUCOSE, BUN, Medica l Branch CREATININE, CA) CT ABDOMEN PELVIS W 2020-04-16 07:02:21 Grant Cheema [facility] CBC WITH DIFF 2020-04-15 10:02:00 Katrina [facility] PHOSPHORUS 2020-04-15 10:02:00 Carola [facility] MAGNESIUM 2020-04-15 10:02:00 Katrina [facility] BASIC METABOLIC PANEL (NA, 2020-04-15 10:02:00 Yosvany Herndon [facility] K, CL, CO2, GLUCOSE, BUN, Medica l Branch CREATININE, CA) CBC WITH DIFF 2020-04-14 10:26:00 Katrina [facility] PHOSPHORUS 2020-04-14 10:26:00 Carola [facility] MAGNESIUM 2020-04-14 10:26:00 Katrina [facility] BASIC METABOLIC PANEL (NA, 2020-04-14 10:26:00 Yosvany Herndon [facility] K, CL, CO2, GLUCOSE, BUN, Medica l Branch CREATININE, CA) BASIC METABOLIC PANEL (NA, 2020-04-13 23:53:00 Grant Santana i, [facility] K, CL, CO2, GLUCOSE, BUN, Danny [facility] CREATININE, CA) CBC WITHOUT DIFF 2020-04-13 23:53:00 Grant Cheema [facility] IR DRAINAGE BY CATHETER 2020-04-13 20:35:08 Grant Cheema [facility] PERITONEAL OR [facility] RETROPERITONEAL BODY FLUID 2020-04-13 20:05:00 Neris Grier [facility] CULTURE(AEROBIC/ANAEROBIC) Medic al Branch LDH TOTAL BODY FLUID 2020-04-13 20:05:00 Grant Cheema, [facility] GLUCOSE BODY FLUID 2020-04-13 20:05:00 Grant Cheema [facility] T.PROTEIN BODY FLUID 2020-04-13 20:05:00 Grant Cheema, [facility] BODY FLUID DIRECT COUNT 2020-04-13 20:05:00 Grant Cheema [facility] CBC WITH DIFF 2020-04-13 10:44:00 Katrina [facility] PHOSPHORUS 2020-04-13 10:44:00 Carola [facility] MAGNESIUM 2020-04-13 10:44:00 Katrina [facility] BASIC METABOLIC PANEL (NA, 2020-04-13 10:44:00 Yosvany Herndon [facility] K, CL, CO2, GLUCOSE, BUN, Medica l Branch CREATININE, CA) CT ABDOMEN PELVIS W 2020-04-12 21:23:19 [facility] 2020-04-12 20:43:00 [facility] C[facility] 2020-04-12 20:43:00 Becky [facility] BLOOD CULTURE WORKUP 2020-04-12 18:51:00 Becky Rosaura [facility] GRAM NEGATIVE BLOOD 2020-04-12 18:51:00 Rosaura Pena [facility] PATHOGENS DNA [facility] PROBE-ANAEROBIC BLOOD CULTURE SCREEN 2020-04-12 18:51:00 Becky [facility] [place] BLOOD CULTURE SCREEN 2020-04-12 18:50:00 Rosaura Pena [facility] CBC WITH DIFF 2020-04-12 08:46:00 Katrina [facility] PHOSPHORUS 2020-04-12 08:46:00 Carola [facility] MAGNESIUM 2020-04-12 08:46:00 Katrina [facility] BASIC METABOLIC PANEL (NA, 2020-04-12 08:46:00 Yosvany Herndon [facility] K, CL, CO2, GLUCOSE, BUN, Medica l Branch CREATININE, CA) CBC WITH DIFF 2020-04-11 08:54:00 Katrina [facility] PHOSPHORUS 2020-04-11 08:54:00 Carola [facility] MAGNESIUM 2020-04-11 08:54:00 Katrina [facility] BASIC METABOLIC PANEL (NA, 2020-04-11 08:54:00 Yosvany Herndon [facility] K, CL, CO2, GLUCOSE, BUN, Medica [facility] Branch CREATININE, CA) CBC WITH DIFF 2020-04-10 09:49:00 Katrina [facility] PHOSPHORUS 2020-04-10 09:49:00 Carola [facility] MAGNESIUM 2020-04-10 09:49:00 [place], [facility] XR CHEST 1 VW 2020-04-09 11:27:00 Grant Cheema [facility] CBC WITH DIFF 2020-04-09 09:07:00 Katrina [facility] PHOSPHORUS 2020-04-09 09:07:00 Carola [facility] MAGNESIUM 2020-04-09 09:07:00 Katrina [facility] HEPATIC FUNCTION PANEL 2020-04-09 09:07:00 Grant Cheema, [facility] ([id number]) (ALB,T.PRO,[facility] T,BU/BC,ALT,AST,ALK PHOS) BASIC METABOLIC PANEL (NA, 2020-04-09 09:07:00 Yosvany Herndon [facility] K, CL, CO2, GLUCOSE, BUN, Medica l Branch CREATININE, CA) AC PANEL 20 + LACTIC ACID 2020-04-08 21:11:00 Yosvany Herndon [facility] POCT GLUCOSE (AUTOMATED) 2020-04-08 12:27:00 Phadmitrik, Bia [facility] AC PANEL 21 + LACTIC ACID 2020-04-08 09:34:00 Bigg [facility] POCT GLUCOSE (AUTOMATED) 2020-04-08 09:33:00 Phadmitrik, Bia [facility] CBC WITH DIFF 2020-04-08 09:26:00 Katrina [facility] MAGNESIUM 2020-04-08 09:26:00 Katrina [facility] BASIC METABOLIC PANEL (NA, 2020-04-08 09:26:00 Yosvany Herndon [facility] K, CL, CO2, GLUCOSE, BUN, Medica l Branch CREATININE, CA) POCT GLUCOSE (AUTOMATED) 2020-04-08 04:24:00 Phatak, [facility]ia [facility] POCT GLUCOSE (AUTOMATED) 2020-04-08 00:36:00 Phatak, Bia [facility] POCT GLUCOSE (AUTOMATED) 2020-04-07 21:24:00 Phatak, Bia [facility] POCT GLUCOSE (AUTOMATED) 2020-04-07 16:49:[address] [facility] AC PANEL 20 + LACTIC ACID 2020-04-07 14:14:00 Yosvany Herndon [facility] LACTIC ACID WHOLE BLOOD 2020-04-07 13:53:00 [facility] PO[facility]SE (AUTOMATED) 2020-04-07 12:50:00 Bia Pedro [facility] AC PANEL 20 + LACTIC ACID 2020-04-07 11:16:00 Yosvany Herndon [facility] MAGNESIUM 2020-04-07 08:48:00 Katrina [facility] BASIC METABOLIC PANEL (NA, 2020-04-07 08:48:00 Yosvany Herndon [facility] K, CL, CO2, GLUCOSE, BUN, Medica l Branch CREATININE, CA) CBC WITH DIFF 2020-04-07 08:48:00 Katrina [facility] XR CHEST 1 VW 2020-04-07 08:10:00 Rosaura Pena [facility] POCT GLUCOSE (AUTOMATED) 2020-04-07 04:36:00 Bia Pedro [facility] AC PANEL 21 + LACTIC ACID 2020-04-07 02:05:00 Bigg [facility] MRSA / MSSA SCREEN BY PCR, 2020-04-07 02:05:00 Grant Santana i [facility] BLOOD CULTURE SCREEN 2020-04-07 02:05:00 Grant Cheema [facility] POCT GLUCOSE (AUTOMATED) 2020-04-07 00:37:00 Bia Pedro [facility] HCV ANTIBODY 2020-04-06 23:44:00 [facility]SE (AUTOMATED) 2020-04-06 23:43:00 Bia Pedro [facility] HIV 1/2 AG-AB WITH REFLEX 2020-04-06 23:30:00 Grant Cheema , [facility] POCT GLUCOSE (AUTOMATED) 2020-04-06 22:14:[address] [facility] ECHO ROUTINE W/DOPPLER 2020-04-06 20:25:55 Katrina [facility] PROTHROMBIN TIME / INR 2020-04-06 19:00:00 Rosaura Pena [facility] ACTIVATED PARTIAL THRMPLAS 2020-04-06 19:00:00 Becky [facility] SELENA [facility] MAGNESIUM 2020-04-06 19:00:00 Becky [facility] BASIC METABOLIC PANEL (NA, 2020-04-06 19:00:00 Becky [facility] K, CL, CO2, GLUCOSE, BUN, [facility] CREATININE, CA) COMP. METABOLIC PANEL 2020-04-06 19:00:00 Yosvany Herndon [facility] ([id number]) [facility] CBC WITH DIFF 2020-04-06 19:00:00 Katrina [facility] AC PANEL 21 + LACTIC ACID 2020-04-06 18:59:00 Simi Dennis [facility] ABG+COOX+NA+K+GLU+CA2+ 2020-04-06 16:06:00 Bia [facility] INTUBATION 2020-04-06 16:04:59 Ana Syed [facility] XR CHEST 1 VW 2020-04-06 15:43:00 [facility] SURGICAL PATHOLOGY EXAM 2020-04-06 15:12:00 Zahraa Mccabeshua [facility] CENTRAL LINE 2020-04-06 14:52:37 Cynthia Herring [facility] E [facility] ARTERIAL LINE 2020-04-06 14:51:44 Ana Syed [facility] ASPIRATE OR ABSCESS 2020-04-06 14:50:29 Juventino Mccabe [facility] CULTURE(AEROBIC/ANAEROBIC) [facility] [employer] CULTURE 2020-04-06 14:50:29 Person, [facility] o f [facility] FUNGUS (ROUTINE) CULTURE 2020-04-06 14:50:29 Person, Juventino Herring [facility] ABG+COOX+NA+K+GLU+CA2+ 2020-04-06 14:46:00 Bia Pedro [facility] HB ABO GROUPING 2020-04-06 14:39:00 Dana Sampson [facility] EXPLORATORY LAPAROTOMY 2020-04-06 13:51:00 Person, Juventino [facility] URINE CULTURE 2020-04-06 13:48:00 Grant Cheema, [facility] XR KUB 2020-04-06 13:34:22 Grant Cheema, [facility] XR CHEST 1 VW 2020-04-06 13:34:22 Grant Cheema, [facility] MAGNESIUM 2020-04-06 11:47:00 Becky [facility] BASIC METABOLIC PANEL (NA, 2020-04-06 11:47:00 Becky [facility] K, CL, CO2, GLUCOSE, BUN, [facility] CREATININE, CA) CBC WITH DIFF 2020-04-06 11:47:00 Becky [facility] XR KUB 2020-04-05 21:34:47 Grant Cheema, [facility] XR KUB 2020-04-05 19:41:00 Grant Cheema, [facility] MAGNESIUM 2020-04-05 09:44:00 Becky [facility] BASIC METABOLIC PANEL (NA, 2020-04-05 09:44:00 Becky [facility] K, CL, CO2, GLUCOSE, BUN, [facility] CREATININE, CA) CBC WITH DIFF 2020-04-05 09:44:00 Becky [facility] MAGNESIUM 2020-04-04 10:09:00 Becky [facility] BASIC METABOLIC PANEL (NA, 2020-04-04 10:09:00 Becky [facility] K, CL, CO2, GLUCOSE, BUN[facility] CREATININE, CA) CBC WITH DIFF 2020-04-04 10:09:00 Becky [facility] SURGICAL PATHOLOGY EXAM 2020-04-03 20:13:00 [facility] LAPAROSCOPIC COLECTOMY 2020-04-03 15:35:00 Phataoctavia [facility] COLONOSCOPY 2020-04-03 15:35:00 Phataoctavia [facility] COLECTOMY 2020-04-03 15:35:00 Phacathy [facility] MAGNESIUM 2020-04-03 09:20:00 Becky [facility] BASIC METABOLIC PANEL (NA, 2020-04-03 09:20:00 Becky [facility] K, CL, CO2, GLUCOSE, BUN, [facility] CREATININE, CA) CBC WITH DIFF 2020-04-03 09:20:00 Becky [facility] HB ABO GROUPING 2020-04-02 22:45:00 Hugo Alfaro [facility] MAGNESIUM 2020-04-02 10:22:00 Becky [facility] BASIC METABOLIC PANEL (NA, 2020-04-02 10:22:00 Becky [facility] K, CL, CO2, GLUCOSE, BUN, [facility] CREATININE, CA) CBC WITH DIFF 2020-04-02 10:22:00 Becky [facility] COVID-19 (ID NOW RAPID 2020-04-01 23:02:00 Becky [facility] TESTING) [facility] URINALYSIS 2020-03-31 11:25:00 Alex Lopez [facility] CT ABDOMEN PELVIS W 2020-03-31 00:17:06 Alex Lopez [facility] CONTRAST [facility] XR CHEST 1 VW 2020-03-30 22:43:49 Colette [facility] EKG-12 LEAD 2020-03-30 22:14:24 Doctor Stephen, [facility] PROTHROMBIN TIME / INR 2020-03-30 22:05:00 Alex Lopez [facility] ACTIVATED PARTIAL THRMPLAS 2020-03-30 22:05:00 Alex Lopez [facility] N-TERMINAL PRO-BNP 2020-03-30 22:05:00 Colette Gageri [facility] LIPASE 2020-03-30 22:05:00 Colette [facility] TROPONIN I 2020-03-30 22:05:00 Colette [facility] HEPATIC FUNCTION PANEL 2020-03-30 22:05:00 Alex Lopez [facility] ([id number]) ([facility] T,BU/BC,ALT,AST,ALK PHOS) BASIC METABOLIC PANEL (NA, 2020-03-30 22:05:00 Alex Lopez [facility] K, CL, CO2, GLUCOSE, BUN, Medica [facility] Branch CREATININE, CA) CBC WITH DIFF 2020-03-30 22:05:00 Colette Gageri [facility] EKG-12 LEAD 2020-03-30 22:01:44 Colette Gageri [facility] HOSPITAL ADMISSION 2020-03-30 05:01:00 Doctor Unassotilia, [facility] Name [facility] MAGNESIUM 2020-03-26 09:57:00 Simin [facility] BASIC METABOLIC PANEL (NA, 2020-03-26 09:57:00 Simin [facility] K, CL, CO2, GLUCOSE, BUN, Medica l Branch CREATININE, CA) CBC WITH DIFF 2020-03-26 09:57:00 Simin [facility] LACTIC ACID WHOLE BLOOD 2020-03-26 04:09:00 Sarah Duval [facility] COVID-19 (ID NOW RAPID 2020-03-26 02:01:00 Bernardo Donnelly [facility] TESTING) [facility] CT ABDOMEN PELVIS W 2020-03-26 01:17:18 Andrzej [facility] CONTRAST [facility] PHOSPHORUS 2020-03-26 00:39:00 Simin [facility] MAGNESIUM 2020-03-26 00:39:00 Simin [facility] HEPATIC FUNCTION PANEL 2020-03-26 00:39:00 Bernardo Donnelly [facility] ([id number]) (ALB,T.PRO,BILI Medical Branch T,BU/BC,ALT,AST,ALK PHOS) BASIC METABOLIC PANEL (NA, 2020-03-26 00:39:00 Bernardo Donnelly [facility] K, CL, CO2, GLUCOSE, BUN, Medica l Branch CREATININE, CA) CBC WITH DIFF 2020-03-26 00:39:00 Bernardo Donnelly [place] o [facility] EXTRA TUBE LT. BLUE 2020-03-26 00:39:00 Bernardo Donnelly [facility] HOSPITAL ADMISSION 2020-03-25 05:01:00 Doctor Unassigned, [facility] PROTHROMBIN TIME / INR 2020-03-03 04:27:00 Ori Persaud [facility] ACTIVATED PARTIAL THRMPLAS 2020-03-03 04:27:00 Zahraa Persaud se [facility] XR ABDOMEN ACUTE SERIES 2020-03-03 02:15:00 Sabi Begum [facility] PHOSPHORUS 2020-03-03 01:22:00 Ori Persaud [facility] MAGNESIUM 2020-03-03 01:22:00 Ori Persaud [facility] HEPATIC FUNCTION PANEL 2020-03-03 01:22:00 Sabi Begum [facility] ([id number]) (ALB,T.PRO,[facility] T,BU/BC,ALT,AST,ALK PHOS) BASIC METABOLIC PANEL (NA, 2020-03-03 01:22:00 Sabi Begum [facility] K, CL, CO2, GLUCOSE, BUN, [facility] CREATININE, CA) CBC WITH DIFFERENTIAL 2020-03-03 01:22:00 Begum, Sabi [facility] URINALYSIS 2020-03-03 01:22:00 Shy [facility] LACTIC ACID WHOLE BLOOD 2020-03-03 01:22:00 Shy [facility] COVID-19 (ID NOW RAPID 2020-03-03 01:22:00 Sabi Begum [facility] TESTING) Medical Branch GALV/CLC ONLY - URINE DRUG 2020-02-27 20:02:00 Shana [facility] (IMMUNOASSAY) - [facility] COMPREHENSIVE DRUG SCREEN FREE T4 2020-02-27 17:48:00 [facility] THYROID STIMULATING 2020-02-27 17:48:[facility] FREE T3 2020-02-27 17:48:[address] [facility] [address] ABDOMEN PELVIS W 2020-02-26 18:27:28 Alondra Fay [facility]AST [facility] (ID NOW RAPID 2020-02-26 06:41:00 Shy [facility] TESTING) Medical Branch XR ABDOMEN ACUTE SERIES 2020-02-26 04:48:30 Shy [facility] LIPASE 2020-02-26 03:35:00 Shy [facility] HEPATIC FUNCTION PANEL 2020-02-26 03:35:00 Shy [facility] ([id number]) (ALB,T.PRO,BILI [facility] T,BU/BC,ALT,AST,ALK PHOS) BASIC METABOLIC PANEL (NA, 2020-02-26 03:35:00 Sabi Begum [facility] K, CL, CO2, GLUCOSE, BUN, Medica l Branch CREATININE, CA) CBC WITH DIFFERENTIAL 2020-02-26 03:35:00 Shy [facility] LACTIC ACID WHOLE BLOOD 2020-02-26 03:35:00 Shy [facility] EXTRA TUBE LT. BLUE 2020-02-26 03:35:00 Sabi Begum [facility] MAGNESIUM 2020-02-03 16:38:00 Simin, [facility] BASIC METABOLIC PANEL (NA, 2020-02-03 16:38:00 Simin, [facility] K, CL, CO2, GLUCOSE, BUN, [facility] CREATININE, CA) XR KUB 2020-01-31 16:59:00 [facility] BASIC METABOLIC PANEL (NA, 2020-01-31 06:15:00 Kirill Henson [facility] K, CL, CO2, GLUCOSE, BUN, [facility] CREATININE, CA) CBC WITH DIFFERENTIAL 2020-01-31 06:15:00 Kirill Henson [facility] BASIC METABOLIC PANEL (NA, 2020-01-29 10:06:00 [facility], CL, CO2, GLUCOSE, BUN, Medica [facility] CREATININE, CA) CBC WITH DIFFERENTIAL 2020-01-29 10:06:00 [facility] COVID[facility] (PCR MOLECULAR 2020-01-29 03:56:00 Liz [facility] TESTING) [facility] LACTIC ACID WHOLE BLOOD 2020-01-29 03:55:00 Bernardo Donnelly [facility] EXTRA TUBE LAV 2020-01-29 03:55:00 Liz [facility] EXTRA TUBE LT. BLUE 2020-01-29 03:55:00 Liz [facility] EXTRA TUBE LT. GREEN 2020-01-29 03:55:00 Liz [facility] URINALYSIS 2020-01-29 01:35:00 Silvia Jurado I [facility] COVID-19 (ID NOW RAPID 2020-01-29 01:32:00 Bernardo Donnlely [facility] TESTING) Medical Branch CT ABDOMEN PELVIS W 2020-01-28 23:53:23 Silvia Jurado I [facility] CONTRAST [facility] LIPASE 2020-01-28 23:19:00 Silvia Jurado I [facility] HEPATIC FUNCTION PANEL 2020-01-28 23:19:00 Silvia Jurado I [facility] ([id number]) (ALB,T.PRO,BILI Medical Branch T,BU/BC,ALT,AST,ALK PHOS) BASIC METABOLIC PANEL (NA, 2020-01-28 23:19:00 Sondra Jurado I [facility] K, CL, CO2, GLUCOSE, BUN, Medica l Branch CREATININE, CA) CBC WITH DIFFERENTIAL 2020-01-28 23:19:00 Silvia Jurado [facility] HOSPITAL ADMISSION 2020-01-28 05:01:00 Doctor Unassigned, [facility] Coward [facility] BASIC METABOLIC PANEL (NA, 2020-01-26 18:06:00 Simin [facility] K, CL, CO2, GLUCOSE, BUN, Medica l Branch CREATININE, CA) MAGNESIUM 2020-01-26 08:17:00 Liz [facility] XR KUB 2020-01-26 06:00:00 Sindhu [facility] PHOSPHORUS 2020-01-25 09:43:00 Liz [facility] COVID-19 (ID NOW RAPID 2020-01-25 04:31:00 Shy [facility] TESTING) [facility] LACTIC ACID WHOLE BLOOD 2020-01-25 04:27:00 Shy [facility] ABDOMEN PELVIS W 2020-01-25 02:15:22 Sabi Begum [facility] CONTRAST [facility] URINALYSIS 2020-01-25 01:05:00 Shy [facility] LIPASE 2020-01-25 00:42:00 Shy [facility] HEPATIC FUNCTION PANEL 2020-01-25 00:42:00 Shy [facility] ([id number]) (ALB[facility]PRO[facility] Lorenzo T,BU/BC,ALT,AST,ALK PHOS) BASIC METABOLIC PANEL (NA, 2020-01-25 00:42:00 Sabi Begum [facility] K, CL, CO2, GLUCOSE, BUN, Medica l Lorenzo CREATININE, CA) CBC WITH DIFFERENTIAL 2020-01-25 00:42:00 Shy [facility] [id number] 2020-01-09 00:00:[address] [place] [address] EXTERNAL PROVIDER RECORDS 2019-12-28 05:01:00 Doctor Unassigned, [facility] Plan of Care Planned Activity Planned Date Details Comments Source Future Scheduled 2029-03-23 Screening for malignant [facility] Test 00:00:00 neoplasm of colon Medical Ce nter (procedure) [code = 615924569] Future Scheduled 2029-03-23 Screening for malignant [facility] Test 00:00:00 neoplasm of colon Medical Ce nter (procedure) [code = 188110721] Future Scheduled 2029-03-23 Screening for malignant [facility] Test 00:00:00 neoplasm of colon Medical Ce nter (procedure) [code = 799712286] Future Scheduled 2029-03-23 Screening for malignant [facility] Test 00:00:00 neoplasm of colon Medical Ce nter (procedure) [code = 586141601] Future Scheduled 2029-03-23 Screening for malignant [facility] Test 00:00:00 neoplasm of colon Medical Ce nter (procedure) [code = 344147844] Future Scheduled 2029-03-23 Screening for malignant [facility] Test 00:00:00 neoplasm of colon Medical Ce nter (procedure) [code = 362933167] Future Scheduled 2029-03-23 Screening for malignant [facility] Test 00:00:00 neoplasm of colon Medical Ce nter (procedure) [code = 199223595] Future Scheduled 2029-03-23 Screening for malignant [facility] Test 00:00:00 neoplasm of colon Medical Ce nter (procedure) [code = 424929060] Future Scheduled 2029-03-23 Screening for malignant [facility] Test 00:00:00 neoplasm of colon Medical Ce nter (procedure) [code = 984099886] Future Scheduled 2029-03-23 Screening for malignant [facility] Test 00:00:00 neoplasm of colon Medical Ce nter (procedure) [code = 370510894] Future Scheduled 2029-03-23 Screening for malignant [facility] Test 00:00:00 neoplasm of colon Medical Ce nter (procedure) [code = 307673220] Future Scheduled 2029-03-23 Screening for malignant [facility] Test 00:00:00 neoplasm of colon Medical Ce nter (procedure) [code = 309206638] Future Scheduled 2029-03-23 Screening for malignant [facility] Test 00:00:00 neoplasm of colon Medical Ce nter (procedure) [code = 209032958] Future Scheduled 2029-03-23 Screening for malignant [facility] Test 00:00:00 neoplasm of colon Medical Ce nter (procedure) [code = 615282250] Future Scheduled 2029-03-23 Screening for malignant [facility] Test 00:00:00 neoplasm of colon Medical Ce nter (procedure) [code = 264755842] Future Scheduled 2029-03-23 Screening for malignant [facility] Test 00:00:00 neoplasm of colon Medical Ce nter (procedure) [code = 684485545] Future Scheduled 2029-03-23 Screening for malignant [facility] Test 00:00:00 neoplasm of colon Medical Ce nter (procedure) [code = 626261081] Future Scheduled 2022-05-24 IMM Influenza Seasonal H [...] 00:00:00 neoplasm of colon (procedure) [code = 510531233] Future Scheduled 2020-02-14 SHINGLES VACCINES (1 of [...] 00:00:00 neoplasm of colon (procedure) [code = 343409759] Future Scheduled 2020-02-14 Screening for malignant [facility] 00:00:00 neoplasm of colon (procedure) [code = 020045726] Future Scheduled 2020-02-14 Screening for malignant [facility] Test 00:00:00 neoplasm of colon (procedure) [code = 963733254] Future Scheduled 2020-02-14 Screening for malignant [facility] Test 00:00:00 neoplasm of colon (procedure) [code = 981342321] Future Scheduled 2020-02-14 Screening for malignant [facility] Test 00:00:00 neoplasm of colon (procedure) [code = 327483319] Future Scheduled 2005 Lipid panel (procedure) [facility] 00:00:00 [code = 33646936] Medical Ce nter Future Scheduled 2005 Lipid panel (procedure) [facility] Test 00:00:00 [code = 37275816] Medical Ce nter Future Scheduled 2005 Lipid panel (procedure) [facility] Test 00:00:00 [code = 18728264] Medical Ce nter Future Scheduled 2005 Lipid panel (procedure) [facility] Test 00:00:00 [code = 00977677] Medical Ce nter Future Scheduled 2005 Lipid panel (procedure) [facility] Test 00:00:00 [code = 98593424] Medical Ce nter Future Scheduled 2005 Lipid panel (procedure) [facility] Test 00:00:00 [code = 62481592] Medical Ce nter Future Scheduled 2005 Lipid panel (procedure) [facility] Test 00:00:00 [code = 64217162] Medical Ce nter Future Scheduled 2005 Lipid panel (procedure) [facility] 00:00:00 [code = 37313980] Medical Ce nter Future Scheduled 2005 Lipid panel (procedure) [facility] Test 00:00:00 [code = 00296560] Medical Ce nter Future Scheduled 1989 DTAP/TDAP/TD [...] colon Medical Ce nter (procedure) [code = 852002442] Future Scheduled 1970 Screening for malignant [facility] 00:00:00 neoplasm of colon Medical Ce nter (procedure) [code = 874221775] Future Scheduled 1970 Sigmoidoscopy [facility] Medical Cent[facility] Future Scheduled 1970 Fluoride Varnish [facility] = Fluoride Varnish] Future Scheduled 1970 Screening for malignant [facility] Test 00:00:00 neoplasm of colon Medical Ce nter (procedure) [code = 360535804] Future Scheduled 1970 Screening for malignant [facility] Test 00:00:00 neoplasm of colon Medical Ce nter (procedure) [code = 206002886] Future Scheduled 1970 Sigmoidoscopy [facility]code [facility] S[facility]oscopy] Medical Cente r Future Scheduled 1970 CT Colonography (combo) [facility] 00:00:00 [code = CT Colonography Medi [facility]ariusz Center (combo)] Future Scheduled 1970 Screening for malignant [facility] Test 00:00:00 neoplasm of colon Medical Ce nter (procedure) [code = 338126943] Future Scheduled 1970 Screening for malignant [facility] Test 00:00:00 neoplasm of colon Medical Ce nter (procedure) [code = 748104753] Future Scheduled 1970 Sigmoidoscopy [facility]code [facility] S[facility]oscopy] Medical Cente r Future Scheduled 1970 CT Colonography (combo) [facility] 00:00:00 [code = CT Colonography [facility]i [facility] (combo)] Future Scheduled 1970 Screening for malignant [facility] Test 00:00:00 neoplasm of colon Medical Ce nter (procedure) [code = 797927457] Future Scheduled 1970 Screening for malignant [facility] Test 00:00:00 neoplasm of colon Medical Ce nter (procedure) [code = 090927785] Future Scheduled 1970 Sigmoidoscopy [facility]code = [facility] Sigmoidoscopy] Medical Cente r Future Scheduled 1970 CT Colonography (combo) [facility] 00:00:00 [code = CT Colonography [facility] mariusz Center (combo)] Future Scheduled 1970 Screening for malignant [facility] Test 00:00:00 neoplasm of colon Medical Ce nter (procedure) [code = 097077956] Future Scheduled 1970 Screening for malignant [facility] Test 00:00:00 neoplasm of colon Medical Ce nter (procedure) [code = 838300485] Future Scheduled 1970 Sigmoidoscopy [facility]code [facility] Sigmoidoscopy] Medical Cente r Future Scheduled 1970 CT Colonography (combo) [facility] 00:00:00 [code = CT Colonography [facility]i [facility] Center (combo)] Future Scheduled 1970 Screening for malignant [facility] 00:00:00 neoplasm of colon Medical Ce nter (procedure) [code = 513328788] Future Scheduled 1970 Screening for malignant [facility] Test 00:00:00 neoplasm of colon Medical Ce nter (procedure) [code = 220189168] Future Scheduled 1970 Sigmoidoscopy [facility]code = [facility] 00:[facility] Sigmoidoscopy] Medical Cente r Future Scheduled 1970 CT Colonography (combo) [facility] 00:00:00 [code = CT Colonography [facility]i [facility] Center (combo)] Future Scheduled 1970 Screening for malignant [facility] Test 00:00:00 neoplasm of colon Medical Ce nter (procedure) [code = 842448051] Future Scheduled 1970 Screening for malignant [facility] Test 00:00:00 neoplasm of colon Medical Ce nter (procedure) [code = 600576275] Future Scheduled 1970 Sigmoidoscopy [facility]code [facility] 00:[facility] Sigmoidoscopy] Medical Cente r Future Scheduled 1970 CT Colonography (combo) [facility] 00:00:00 [code = CT Colonography [facility]i [facility] (combo)] Future Scheduled 1970 Screening for malignant [facility] Test 00:00:00 neoplasm of colon Medical Ce nter (procedure) [code = 752541099] Future Scheduled 1970 Screening for malignant [facility] Test 00:00:00 neoplasm of colon Medical Ce nter (procedure) [code = 552554410] Future Scheduled 1970 Sigmoidoscopy [code = CH [...] Type Clinicians Facility Department ID 2021-06-25 Emergency [facility] [id number] Univers 05:25:12 ity of [facility] 2021-06-25 Emergency [facility] [id number] Univers 01:41:18 ity of [facility] 2021-06-24 Emergency [facility] [id number] Univers 22:38:17 ity of [facility] 2021-06-22 Emergency [facility] [id number] Univers 21:40:44 ity of [facility] 2021-06-22 Emergency [facility] [id number] Univers 13:55:03 ity of [facility] 2021-06-22 Emergency [facility] [id number] Univers 05:54:16 ity of [facility] 2021-06-21 Emergency [facility] [id number] Univers 22:33:24 ity of [facility] 2021-06-21 Emergency [facility] [id number] Univers 22:33:24 ity of [facility] 2021-06-21 Emergency [facility] [id number] Univers 22:22:08 ity of [facility] 2021-06-21 Emergency [facility] [id number] Univers 20:04:56 ity of [facility] 2021-06-21 Emergency [facility] [id number] Univers 19:53:56 ity of [facility] 2021-06-21 Emergency [facility] [id number] Univers 19:37:27 ity of [facility] 2021-06-21 Emergency [facility] [id number] Univers 19:36:41 ity of [facility] 2021-06-21 Emergency [facility] [id number] Univers 17:11:26 ity of [facility] 2021-06-21 Emergency [facility] [id number] Univers 16:44:38 ity of [facility] 2021-06-21 Emergency [facility] [id number] Univers 11:19:16 ity of [facility] 2021-06-21 Emergency [facility] [id number] Univers 10:16:06 ity of [facility] 2021-06-21 Emergency [facility] [id number] Univers 06:08:42 ity of [facility] 2021-06-21 Emergency [facility] [id number] Univers 04:43:23 ity of [facility] 2021-06-21 Emergency [facility] [id number] Univers 04:42:49 ity of [facility] 2021-06-20 Emergency X YURIY, [facility] PAKO [id number] Univers 18:31:02 OSMAR ity of [facility] 2020-02-23 Inpatient HCAPM LENNY [id number] [facility] 18:42:00 89 [facility] 2020-02-17 Inpatient EM Avtar, HCAPM MAS [id number] [facility] 00:22:00 Oladipo 75 [facility] 2020-01-05 Inpatient MORIS Perea, HCAPM MEDI.01 [id number] [facility] 20:23:00 Mark 40 [facility] 2019-12-13 Inpatient HCAMN JULIA [id number] [facility] 17:52:00 47 [facility] 2022-04-14 2022-04-14 Transition MELANIE Valdes 1.2.840.114 [id number] Univers 00:00:00 00:00:00 of Care Miryam RECINOS 350.1.13.10 [place] [id number] [facility] [address] Branch 2022-04-09 2022-04-10 Emergency X [facility] ERT [id number] Univers 20:38:00 00:14:00 ALVAREZ ity of [facility] 2022-04-09 2022-04-10 Emergency [facility] 1.2.840.114 [id number] Univers 20:38:00 00:14:00 Alvarez OROPEZA 350.1.13.10 ity of [place] [id number] [facility] 084 Branch 2022-04-09 2022-04-09 Transition MELANIE Valdes 1.2.840.114 [id number] Univers 00:00:00 00:00:00 of Care Miryam RECINOS 350.1.13.10 [place] [id number] [facility] [address] 2022-04-02 2022-04-08 Inpatient X ABU [facility] URI [id number] Univers 11:42:00 12:30:00 rai LAUGHLIN [facility] 2022-04-02 2022-04-08 Hospital Rekha Sheehan [facility] 1.2.840.11 [id number] [facility] 11:42:00 12:30:00 Encounter Juventino Thomas [facility] 350.1.13.10 ity of [place] 4.2.7.2.686 [place] [id number] ([facility]) 2022-03-29 2022-03-29 Emergency EM Bridgett, HCACL AERS [id number] [facility] 14:26:00 16:45:00 Sabi 28 [facility] 2022-03-29 2022-03-29 Emergency EM Bridgett, HCACL HCACL [id number] [facility] 14:26:00 16:45:00 Sabi [id number] [facility] 2022-03-25 2022-03-26 Inpatient E RICHARD [facility] MED [id number] BL 13:38:00 10:16:00 , YESSI 2022-03-15 2022-03-18 Emergency E RADHA [facility] MED [id number] [facility] 13:36:00 18:59:00 JULIO 2022-03-13 2022-03-13 Emergency [facility] [id number] Lynne 15:33:00 20:25:00 [facility] 2022-03-13 2022-03-13 Emergency [facility] [id number] [place] 15:33:00 20:25:00 [facility] 2022-03-13 2022-03-13 Outpatient RONALD, [facility] [id number] [place] 00:00:00 00:00:00 [facility] 2022-03-06 2022-03-09 Inpatient ER ANYALEONIDAS MARSHALL [facility] Emergency [id number] SLE 12:16:00 12:55:00 2022-03-06 2022-03-09 Hospital ER Aryan Tello [facility] [id number] [facility] 12:16:00 12:55:00 Encounter Norma Montalvo Fang-Ying M edical Heinen, [facility] Odell Colin 2022-03-06 2022-03-09 [facility] [id number] 12:16:00 12:55:00 Encounter Norma Montalvo Fang-Ying M edical Heinen, [facility] Leonidas Rodriguezsan Colin 2022-03-06 2022-03-06 Outpatient [facility] [id number] [facility] 00:00:00 23:59:00 Jennifer gordon of Medicin e 2022-03-06 2022-03-06 Orders [facility] [id number] 00:00:00 00:00:00 Only [facility] 2022-03-06 2022-03-06 Travel [facility] [id number] [facility] 00:[facility]00 00:00:00 [facility] 2022-03-06 2022-03-06 Orders [facility] [id number] 00:00:00 00:00:00 Only [facility] 2022-03-06 2022-03-06 Travel [facility] [id number] [facility] 00:00:00 00:00:00 [facility] 2022-02-18 2022-02-20 Emergency [facility] [id number] Maged 13:58:00 11:55:00 Alona Calvert Ashish D Cavazos, Roberto H 2022-02-18 2022-02-20 Emergency [facility] [id number] Maged 13:58:00 11:55:00 Alona Calvert [facility] Rufino Lazaro Roberto H 2022-02-18 2022-02-18 [facility] [id number] [place] 15:19:05 15:23:18 [facility] 2022-02-18 2022-02-18 Outpatient 1 TEJAS [facility] [id number] [place] 13:58:00 13:58:00 [facility] 2022-02-18 2022-02-18 [facility] [id number] [place] 00:00:00 00:00:00 , OSCAR boss 2022-02-07 2022-02-11 [facility] [id number] [place] 13:40:00 13:22:00 Encounter [facility] 2022-02-07 2022-02-11 [facility] [id number] [place] 13:40:00 13:22:[address] [facility] 2022-02-07 2022-02-07 Outpatient 1 DAILY ISLAS [facility] [id number] [place] 13:40:00 13:40:00 [facility] 2022-01-30 2022-01-30 Emergency [facility] [id number] [facility] 17:02:00 18:29:00 Dwain 53 [facility] Medical [facility] 2022-01-30 2022-01-[address] [facility] [facility] [id number] [facility] 17:02:00 18:29:00 Dwain [id number] [facility] 2022-01-22 2022-01-22 Emergency [facility] [id number] [place] 17:24:00 20:39:00 [facility] 2022-01-22 2022-01-22 Emergency [facility] [id number] [place] 17:24:00 20:39:00 [facility] 2022-01-16 2022-01-21 Emergency Raymon Martin [facility] [id number] [place] 11:04:00 18:08:00 Karin Bassett Julian C Agrawal Tien P 2022-01-16 2022-01-21 Emergency Raymon Martin [facility] [id number] [place] 11:04:00 18:08:00 Karin Bassett Julian C Agrawal Tien P 2022-01-19 2022-01-19 Outpatient [facility] [id number] [place] 12:34:08 13:29:31 [facility] 2022-01-16 2022-01-16 Outpatient [facility] [id number] [place] 19:42:28 20:01:28 [facility] 2022-01-16 2022-01-16 Outpatient 1 DANYELLE [facility] [id number] [place] 11:04:00 11:04:00 KARIN boss 2022-01-10 2022-01-11 Emergency Bert Reed [facility] [id number] [place] 10:58:00 11:20:00 Helene Anderson [facility] Merissa Richards 2022-01-10 2022-01-11 Emergency Bert Reed [facility] [id number] Maged 10:58:00 11:20:00 Helene Anderson [facility] Merissa Richards 2022-01-10 2022-01-10 Out[facility] [id number] [place] 10:58:00 10:58:00 [facility] 2022-01-08 2022-01-09 Emergency [facility] [id number] [place] 17:57:00 02:50:00 [facility] 2022-01-08 2022-01-09 Emergency [facility] [id number] [place] 17:57:00 02:50:00 [facility] 2022-01-08 2022-01-08 Emergency [facility] [id number] [place] 21:40:34 21:50:19 [facility] 2021-09-23 2021-09-23 Emergency [facility] [id number] [facility] 19:35:00 21:10:00 74 [facility] 2021-09-13 2021-09-13 Emergency X RACHEL, [facility] [id number] Univers 21:20:00 22:36:00 MICKEY ity of [facility] 2021-09-13 2021-09-13 Emergency Harkey, [facility] [id number] Univers 21:20:00 22:36:00 [facility] 350.1.13.10 it [facility] 4.2.7.2.686 [facility] [id number] [address] ([facility]) 2021-09-13 2021-09-13 Emergency Raffaele Pitts [facility] AERS [id number] [facility] 14:57:00 16:37:00 06 Kennedi Bhatt [facility] 2021-09-12 2021-09-12 Emergency X VERNON, [facility] ERT [id number] Univers 14:25:00 17:51:00 DWAIN ity [facility] 2021-09-12 2021-09-12 Emergency Morrical, TRAUMA 1.2.840.114 [id number] Univers 14:25:00 17:51:00 Dwain [facility] 350.1.13.10 [place] [id number] [address] 2021-09-12 2021-09-12 Emergency X JAMEY [facility] ERT [id number] Univers 06:20:00 10:10:00 [facility] 2021-09-12 2021-09-12 Emergency Alona Carty TRAUMA 1.2.840 .114 [id number] Univers 06:20:00 10:10:00 LaminebrielleConstantin MONT[place] 350.1.13.10 [place] [id number] [address] 2021-09-08 2021-09-09 Emergency X YINA, [facility] ERT [id number] Univers 23:01:00 01:30:00 SEBASTIAN ithiram [facility] 2021-09-08 2021-09-09 Emergency Pacheco, TRAUMA [id number] Univers 23:01:00 01:30:00 Sebastian [facility] 350.1.13.10 [place] [id number] [address] 2021-09-07 2021-09-07 [facility] [id number] Univers 19:24:00 23:44:00 SEBASTIAN ithiram [facility] 2021-09-07 2021-09-07 Emergency Pacheco, TRAUMA [id number] [id number] Univers 19:24:00 23:44:00 Sebastian [facility] 350.1.13.10 [place] [id number] [address] 2021-09-06 2021-09-06 Emergency X YINA, [facility] ERT [id number] Univers 15:35:00 17:52:00 SEBASTIAN ity of [facility] 2021-09-06 2021-09-06 Emergency Pacheco, TRAUMA 1.2.858.349 [id number] Univers 15:35:00 17:52:00 Sebastian ALENA 350.1.13.10 [place] [id number] [facility] 014 Branch 2021-09-06 2021-09-06 Transition MELANIE Vallejo 1.2.840.114 [id number] Univers 00:00:00 00:00:00 of Care Emili RECINOS 350.1.13.10 it[place] of [place] [id number] [facility] [address] 2021-08-30 2021-09-05 [facility] PAKO [id number] Univers 16:53:00 16:00:00 ity of [facility] 2021-08-30 2021-09-05 Hospital Gayatri Gu 1 .2.840.114 [id number] Univers 16:53:00 16:00:00 Encounter Sophia Andreaool MAGGY 350.1 .13.10 ity of [facility] 4.2.7.2.686 [facility] [id number] Medical 097 Branch 2021-09-03 2021-09-03 Surgery [facility] ABILIO 1.2.840.114 [id number] Univers 07:15:00 10:04:00 MAGGY 350.1.13.10 it y of [facility] 4.2.7.2.686 Javi as [id number] [facility] 103 [address] 2021-08-29 2021-08-29 Emergency X LEILANIRENETTA, [facility] ERT [id number] Univers 17:15:00 20:03:00 RAVENO ity of [facility] 2021-08-29 2021-08-29 Emergency Ibikunle, TRAUMA 1.2.840.114 [id number] Univers 17:15:00 20:03:00 [facility] 350.1.13.10 [place] [id number] [facility] 014 Branch 2021-07-29 2021-08-05 Inpatient [facility] PAKO [id number] Univers 20:15:00 07:43:00 ity of [facility] 2021-07-29 2021-08-05 [facility] Jonah Rees 1.2.840.1 [id number] Univers 20:15:00 07:43:00 Encounter Karin Myers 350.1.13.1 0 ity of [facility] 4.2.7.2.686 [place] [id number] [facility] 091 Branch 2021-07-29 2021-07-29 Transition MELANIE Vallejo 1.2.840.114 [id number] Univers 00:00:00 00:00:00 of Care Emili RECINOS 350.1.13.10 ity of [place] [id number] [facility] [address] 2021-07-27 2021-07-27 Emergency EM MASON AvendañoMN JULIA [id number] [facility] 10:15:00 12:36:00 Juan Jose [address] [place] [address] 2021-07-23 2021-07-26 Inpatient X [facility] PAKO [id number] Univers 00:39:00 14:50:00 ity of [facility] 2021-07-23 2021-07-26 [facility] Sabi Schultz 1.2.840 .114 [id number] Univers 00:39:00 14:50:00 Encounter Stephanieoctavia [facility] MAGGY 350.1.13.10 ity of [facility] 4.2.7.2.686 Javi as [id number] [facility] 093 Branch 2021-07-22 2021-07-22 Emergency EM MASON HewittCL AERS [id number] [facility] 04:25:00 08:20:[address] [place] [address] 2021-06-27 2021-06-27 Emergency EM Bridgett, HCACL AERS [id number] [facility] 15:31:00 17:37:00 Sabi 17 [place] [facility]-25 2021-06-25 Orders Doctor BERNARDO 1.2.840.114 [id number] Univers 00:00:00 00:00:00 Only Unassigned, MAGGY 350.1.13.10 ity of [facility] 4.2.7.2.686 Javi as [phone] [facility] 009 Branch 2021-05-31 2021-06-04 Emergency Willie Garrett [facility] 1.2.840.1 14 [id number] Univers 17:10:00 16:38:00 Clementine Castellon [facility] 350.1.13.10 ity of Sabi Gann [place] 4.2.7.2.686 [place] LyleTamika H Bhatt [phone] [place] [address] Branch ([facility]) 2021-05-20 2021-05-21 Emergency Bernardo Donnelly [facility] 1.2.840.114 [id number] Univers 14:29:00 17:10:00 NaylorScott silva Health 350.1.13.10 [place] [phone] [facility] 116 [address] ([facility]) 2021-05-10 2021-05-10 Transition Melanie Vallejo 1.2.840.114 [id number] Univers 00:00:00 00:00:00 of Care Emililaurel Recinos 350.1.13.10 ity of [place] [id number] [facility] 403 [address] 2021-05-07 2021-05-09 Hospital Alona Pérez [facility] 1.2.840.11 [id number] Univers 19:23:00 15:26:00 Encounter Diogo Keane [facility] 350.1.13. 10 ity of Abad Watson Clear 4.2.7.2.686 [place] [phone] [facility] 114 [address] ([facility]) 2021-04-28 2021-05-01 Inpatient EM Aisha, HCACL MAS [id number] [facility] 21:05:00 14:18:00 Christopher 03 Cl [facility] 2020-09-26 2020-09-26 Emergency Jose [facility] 1.2.562.816 [id number] Univers 16:56:00 23:00:00 Mariaelena Oropeza 350.1.13.10 i ty of [place] [phone] [facility] 084 Branch 2020-08-22 2020-08-24 Emergency Funmilayo Pinzon [facility] 1.2.8 40.114 [id number] Univers 15:31:00 14:20:00 Bart Sweeney 350.1.13.10 ity of Ori [place] 4.2.7.2.686 [facility] [phone] [facility] 114 [address] ([facility]) 2020-07-09 2020-07-09 Emergency Henna [facility] 1.2.840.114 [id number] Univers 16:23:00 19:43:00 , Juan M Chau 350.1.13.10 it[place] [phone] [facility] 014 Branch ([facility]) 2020-06-15 2020-06-15 Patient Saira Goodman 1.2.840.114 [id number] Univers 00:00:00 00:00:00 Outreach E Recinos 350.1.13.10 i ty [place] [id number] [facility] 403 [address] 2020-06-12 2020-06-12 Patient Saira Goodman 1.2.840.114 [id number] Univers 00:00:00 00:00:00 Outreach E Recinos 350.1.13.10 i ty [place] [phone] [facility] [address] 2020-06-08 2020-06-08 Patient JenaeAsia montanaeddie 1.2.840.114 [id number] Univers 00:00:00 00:00:00 Outreach Mela Jjy 350.1.13.10 ity of [place] [id number] [facility] [address] 2020-06-07 2020-06-07 Patient Saira Goodman 1.2.840.114 78 [id number] Univers 00:00:00 00:00:00 Outreach E Recinos 350.1.13.10 i ty [phone] [address] 2020-06-05 2020-06-05 Emergency [facility] 1.2.840.114 78 [id number] Univers 06:47:00 10:55:00 More Oropeza 350.1.13.10 ity of [place] 4.[place] [id number] [place] [address]20184 Branch 2020-06-04 2020-06-04 [facility] 1.2.139.505 [id number] Univers 10:36:00 13:38:00 [facility] 350.1.13.10 it y [place] [phone] [facility] 014 Branch ([facility]) 2020-06-04 2020-06-04 Patient Saira Goodmaneddie 1.2.840.114 [id number] Univers 00:00:00 00:00:00 Outreach E Recinos 350.1.13.10 i ty [place] [phone] [address] 2020-06-04 2020-06-04 Patient Melanie Emanuel 1.2.840.114 [id number] Univers 00:00:00 00:00:00 Outreach Mela Arvizu Recinos 350.1.13.10 ity [place] [id number] [address] 2020-06-01 2020-06-01 Transition Melanie Vallejo 1.2.840.114 [id number] Univers 00:00:00 00:00:00 of Care Emili Recinos 350.1.13.10 ity [place] [id number] [address] 2020-05-22 2020-05-31 [facility] Alex Lopez 1.2.840.11 4 [id number] Univers 14:42:00 18:40:00 Encounter Bia Pedro 350.1.13.10 ity of [facility] 4.2.7.2.686 Javi as [phone] [facility] 098 [address] 2020-05-31 2020-05-31 Patient Saira Goodman 1.2.840.114 78 [id number] Univers 00:00:00 00:00:00 Outreach E Recinos 350.1.13.10 i ty [place] [id number] [facility] [address] 2020-05-23 2020-05-23 Outpatient R [facility] [id number] -[id number] Univers 10:00:00 10:00:00 [id number] ity of [facility] 2020-05-23 2020-05-23 Patient Saira Goodman 1.2.840.114 [id number] Univers 00:00:00 00:00:00 Outreach E Recinos 350.1.13.10 i ty [place] [phone] [facility] [address] 2020-05-23 2020-05-23 Patient Saira Goodman 1.2.840.114 78 [id number] Univers 00:00:00 00:00:00 Outreach E Recinos 350.1.13.10 i ty [place] 4.[place].7.2.[place] [id number] [place] [address] Branch 2020-05-23 2020-05-23 Patient Asia Emanueleddie 1.2.840.114 [id number] Univers 00:00:00 00:00:00 Outreach Mela Arvizu Recinos 350.1.13.10 ity of [place] 4.2.7.2.[place] [id number] [place] [address] Branch 2020-05-21 2020-05-21 [facility] 1.2.189.583 [id number] Univers 20:52:00 23:41:00 [facility] 350.1.13.10 it y of [place] [phone] Medi [address] ([facility]) 2020-05-20 2020-05-20 Emergency Unknown, TRAUMA 1.2.840.114 [id number] Univers 07:04:00 15:13:00 Attending CENTER 350.1.13.10 [place] [phone] [address] 2020-05-19 2020-05-20 [facility] 1.2.840.114 7 [id number] Univers 21:29:00 06:12:00 [facility] 350.1.13.10 it [place] [phone] [address] ([facility]) 2020-05-18 2020-05-18 Patient Saira Goodmaneddie 1.2.840.114 [id number] Univers 10:18:59 11:28:59 Outreach E Recinos 350.1.13.10 i ty [place] [phone] [address] 2020-05-18 2020-05-18 Outpatient R [facility] [id number] -[id number] Univers 09:30:00 09:30:00 [id number] ity of [facility] 2020-05-18 2020-05-18 Patient Jenae Melanie 1.2.840.114 [id number] Univers 00:00:00 00:00:00 Outreach Mela Recinos 350.1.13.10 ity [place] [phone] [address] 2020-05-17 2020-05-17 Outpatient R [facility] [id number] -[id number] Univers 10:00:00 10:00:00 [id number] ity of [facility] 2020-05-17 2020-05-17 Patient Saira Goodman Melanie 1.2.840.114 [id number] Univers 00:00:00 00:00:00 Outreach Heidi Recinos 350.1.13.10 i ty [place].7.2.[place] [id number] [address] 2020-05-17 2020-05-17 Patient Jenae Melanie 1.2.840.114 [id number] Univers 00:00:00 00:00:00 Outreach Mela Arvizu Recinos 350.1.13.10 it[place] [phone] [address] 2020-05-15 2020-05-15 Patient Melanie Emanuel 1.2.840.114 [id number] Univers 00:00:00 00:00:00 Outreach Mela Arvizu Recinos 350.1.13.10 ity [place] [id number] [address] 2020-05-14 2020-05-14 Transition Melanie Vallejo 1.2.840.114 [id number] Univers 00:00:00 00:00:00 of Care Emili Recinos 350.1.13.10 ity [place] [phone] [address] 2020-05-04 2020-05-12 [facility] Lora Hall 1.2. 840.114 [id number] Univers 21:09:00 14:03:00 Encounter Carol Ann Jason 350.1.13.10 ity of Hospital 4.2.7.2.686 [place]avi [place] [phone] [address] 2020-05-10 2020-05-10 Patient Saira Goodmaneddie 1.2.840.114 78 [id number] Univers 00:00:00 00:00:00 Outreach E Recinos 350.1.13.10 i ty [place] [phone] [address] 2020-05-09 2020-05-09 Transition Melanie Vallejo 1.2.840.114 [id number] Univers 00:00:00 00:00:00 of Care Emili Recinos 350.1.13.10 ity [place] [id number] [address] 2020-05-08 2020-05-08 Patient Saira Goodman Melanie 1.2.840.114 [id number] Univers 00:00:00 00:00:00 Outreach E Recinos 350.1.13.10 i ty [place] [id number] [facility] [address] 2020-05-02 2020-05-03 Emergency Herbert, [facility] 1.2.663.803 [id number] Univers 23:37:00 01:53:00 Joel S Johnna 350.1.13.10 ity of [place] 4.[place] [phone] [facility] 084 [address] 2020-05-03 2020-05-03 Patient Saira Goodman 1.2.840.114 [id number] Univers 00:00:00 00:00:00 Outreach E Recinos 350.1.13.10 i ty [place] [id number] [facility] [address] 2020-05-03 2020-05-03 Transition Melanie Vallejo 1.2.840.114 [id number] Univers 00:00:00 00:00:00 of Care Emili Recinos 350.1.13.10 ity of [place] 4.2.7.2.[place] [id number] [facility] [address] 2020-03-30 2020-05-02 Hospital Alex Lopez 1.2.840.11 4 [id number] Univers 16:55:00 16:45:00 Encounter Diogo Keane 350.1.13. 10 ity of [facility] 4.2.7.2.686 [place] [id number] [facility] 091 [address] 2020-04-06 2020-04-06 Anesthesia Dana Sampson 1.2.8 40.114 [id number] Univers 09:10:00 11:29:00 Cynthia Herring 350.1.1 3.10 ity of [facility] 4.2.7.2.686 Javi as [id number] [facility] 103 [address] 2020-03-29 2020-03-29 Transition Melanie Vallejo 1.2.840.114 [id number] Univers 00:00:00 00:00:00 of Care Emili Recinos 350.1.13.10 ity of [place] 4.2.7.2.[place] [id number] [facility] [address] 2020-03-25 2020-03-28 Hospital Bernardo Donnelly [facility] 1.2.840.114 [id number] Univers 19:12:00 18:43:00 Encounter [facility] 350.1.13.1 0 it[place] [phone] [facility] 113 [address] ([facility]) 2020-03-07 2020-03-07 Transition Melanie Vallejo 1.2.840.114 [id number] Univers 00:00:00 00:00:00 of Care Emili Recinos 350.1.13.10 ity of [place] 4.[place].2.[place] [id number] [place] [address] Branch 2020-03-02 2020-03-05 [facility] Sabi Begum [facility] 1.2.840.11 [id number] Univers 19:53:34 17:23:00 Encounter Eliu [facility] 350.1.13.10 ity of SiminSarah de leon Clear 4.2.7.2.686 [place] Bhat[place] [phone] [facility] [address] ([facility]) 2020-02-29 2020-02-29 Transition Melanie Vallejo 1.2.840.114 [id number] Univers 00:00:00 00:00:00 of Care Emili Recinos 350.1.13.10 ity of [place].7.2.[place] [id number] [facility] [address] 2020-02-26 2020-02-27 Hospital Juventino Mccabe 1.2.840.11 4 [id number] Univers 04:55:41 19:20:00 Encounter Bia Pedro Maggy 350.1.13.10 ity of [facility] 4.2.7.2.686 Javi as [id number] [facility] 090 [address] 2020-02-27 2020-02-27 Patient Saira Goodman Melanie 1.2.840.114 [id number] Univers 00:00:00 00:00:00 Outreach E Recinos 350.1.13.10 i ty [place].2.[place] [id number] [facility] [address] 2020-02-25 2020-02-26 Emergency Begum, [facility] 1.2.964.705 [id number] Univers 21:25:58 03:55:00 [facility] 350.1.13.10 it y [place] [id number] [facility] 014 Branch ([facility]) 2020-02-24 2020-02-24 Outpatient Eliazar, HCACL LABO [id number] [facility] 07:51:00 07:51:00 Mark 96 [facility] 2020-02-18 2020-02-18 [id number] [facility] 00:26:00 00:26:00 Oladipo 05 [facility] 2020-02-07 2020-02-07 Transition Melanie Vallejo 1.2.840.114 [id number] Univers 00:00:00 00:00:00 of Care Emili Recinos 350.1.13.10 ity [place] [phone] [place] [address] Branch 2020-02-07 2020-02-07 Transition Melanie Vallejo 1.2.840.114 [id number] 00:00:00 00:00:00 of Care Emili Recinos 350.1.13.10 [place] 4.2.7.2.686 [id number] [facility] 2020-01-28 2020-02-05 Inpatient X SIMIN [facility] [id number] Univers 18:12:56 15:12:00 RADHESHYAM ity of [facility] 2020-01-28 2020-02-05 [facility] Bernardo Donnelly [facility] 1.2.840.114 [id number] Univers 18:12:56 15:12:00 Encounter Luis Carlos Hilliaz Kandi 350.1.13.10 ity of Felix Du[place]olfo [place] 4.2.7.2.686 [place] [id number] [facility] [address] ([facility]) 2020-01-28 2020-02-05 [facility] Bernardo Donnelly [facility] 1.2.840.114 [id number] 18:12:56 15:12:00 Encounter [facility] 350.1.13.10 Fleix Duvalhyam [place] 4.2.7.2.686 [place] [phone] [facility] 114 ([facility]) 2020-01-24 2020-01-26 Emergency BegumSabi simons [facility] 1.2.840.1 14 [id number] Univers 18:46:34 19:35:00 [facility] 350.1.13.10 ity of Sarah [place] 4.2.7.2.686 [facility] [id number] [facility] [address] ([facility]) 2020-01-24 2020-01-26 Outpatient X SIMIN, [facility] [id number] Univers 18:46:34 19:35:00 RADHESHYAM ity [facility] 2020-01-24 2020-01-26 Emergency BegumSabi simons [facility] 1.2.840.1 14 [id number] 18:46:34 19:35:00 [facility] 350.1.13.10 David Duvalam [place] 4.2.7.2.686 [place] [id number] [facility] 109 ([facility]) 2020-01-05 2020-01-05 Outpatient Eliazar, MASONCL OUTD [id number] [facility] 23:52:00 23:52:00 [facility] 2019-12-28 2019-12-28 Orders Doctor BERNARDO 1.2.840.114 [id number] Univers 00:00:00 00:00:00 Only Unassigned, MAGGY 350.1.13.10 ity of [facility] 4.2.7.2.686 Javi as [id number] [place] [address] Branch 2019-12-28 2019-12-28 Orders Doctor BERNARDO 1.2.840.114 [id number] 00:00:00 00:00:00 Only Unassigned, MAGGY 350.1.13.10 [facility] 4.2.7.2.686 [id number] 009 2019-12-12 2019-12-12 Emergency [place], TRAUMA 1.2.849.602 [id number] Univers 21:02:30 23:20:00 [facility] 350.1.13.10 i ty of 4.2.7.2.686 [place] lopez [id number] [address] 2019-12-12 2019-12-12 Emergency [place], TRAUMA 1.2.182.317 [id number] 21:02:30 23:20:00 [facility] 350.1.13.10 4.2.7.2.686 [id number] 014 2017-11-02 2017-11-02 Emergency E [facility] [id number] [address] 08:33:00 08:33:00 [facility] 2017-08-05 2017-08-05 Outpatient [facility] [id number] [place] 00:00:00 00:00:00 [facility] 2017-07-28 2017-07-28 Outpatient [facility] [id number] [address] [place] 00:00:00 00:00:00 [facility] 2017-06-24 2017-06-24 Outpatient [facility] [id number] 36 [place] 00:00:00 00:00:00 [facility] 2017-06-22 2017-06-22 Emergency [facility] [id number] 5 [place] 21:37:29 21:37:29 [facility] 2017-06-22 2017-06-22 Emergency [facility] MED [id number] 7 [place] 21:06:00 21:06:00 [facility] 2017-06-22 2017-06-22 Outpatient [facility] [id number] [place] 10:02:31 10:02:31 [facility] 2017-06-09 2017-06-09 Outpatient [facility] [id number] 02 [place] 00:00:00 00:00:00 [facility] 2017-06-09 2017-06-09 Outpatient [facility] [id number] 18 [place] 00:00:00 00:00:00 [facility] 2017-05-08 2017-05-08 Emergency [facility] MED [id number] 1 [place] 01:04:44 01:04:44 [facility] 2017-05-05 2017-05-05 Emergency E [facility] [id number] [address] 08:11:00 08:11:00 [facility] 2017-04-15 2017-04-15 Emergency E [facility] [id number] [address] 09:53:00 09:53:00 [facility] 2017-04-14 2017-04-14 Outpatient [facility] [id number] 61 [place] 13:31:02 13:31:02 Health Results Test Description Test [...] 31.6 g/dL 31.2-35 RDW-SD (test code = 65123-1) 56.7 fL 38.5-51.6 H RDW-CV (test code = 788-0) 17.4 % 12.1-15.4 H PLT (test code = 777-3) See_Comment [Au tomated message] The system which ge nerated this result transmit dain reference range: 150 - 32 8 10*3/?L. The reference range was not used to interpret th is result as normal/abnormal . MPV (test code = 03536-9) 9.5 fL 9.8-13 L NRBC/100 WBC (test code = See_Comment [ Automated message] The 0920052107) system which ge nerated this result transmit dain reference range: 0.0 - 10 .0 /100 WBCs. The reference r meredith was not used to interpr et this result as normal/abnor mal. NRBC x10^3 (test code = See_Comment [Au tomated message] The 7234770739) system which ge nerated this result transmit dain reference range: 10*3/?L. The reference range was not u sed to interpret this result as normal/abnormal . SEG % (test code = 45008-5) 56 % 33-76 LYMPH % (test code = 28 % 14-54 02896-6) MONO % (test code = 08791-0) 12 % 0-4 H EOS % (test code = 60213-4) 4 % 0-3 H ANC (test code = 753-4) 4.72 10*3/uL 1.99-6.95 PLT ESTIMATE (test code = Normal Normal 9317-9) Lab Interpretation (test Abnormal code = 75286-8) [facility]. METABOLIC PANEL (85196)2022-04-10 04:19:15 Test Item Value Reference Range Interpretation Comments NA (test code = 137 mmol/L 135-145 2705905906) K (test code = 4.6 mmol/L 3.5-5 5956040289) CL (test code = 108 mmol/L 98-108 2793046056) CO2 TOTAL (test code = 22 mmol/L 23-31 L 2821707085) AGAP (test code = 2-16 8326262328) BUN (test code = 16 mg/dL 7-23 0159275389) GLUCOSE (test code = 96 mg/dL 70-110 9703411790) CREATININE (test code = 1.35 mg/dL 0.6-1.25 H 1693871259) TOTAL BILI (test code = 0.4 mg/dL 0.1-1.2 4447198905) CALCIUM (test code = 9.1 mg/dL 8.6-10.6 6592631585) T PROTEIN (test code = 5.5 g/dL 6.3-8.2 L 0150982606) ALBUMIN (test code = 3.9 g/dL 3.5-5 3950182897) ALK PHOS (test code = 58 U/L 34-122 8174023373) ALTv (test code = 41 U/L 5-50 1742-6) AST(SGOT) (test code = 42 U/L 13-40 H 0865863489) eGFR (test code = mL/min/1.73m2 6471875254) GILBERTO (test code = GILBERTO) Association of [...] tests). Lab Interpretation Abnormal (test code = 02923-7) [facility] [place] [facility] 03:33:31 Test Item Value Reference Range Interpretation Comments LIPASE (test code = 0865861490) 90 U/L 0-220 Lab Interpretation (test code = Normal 95670-0) [facility] [place] [facility]2022-08-16 12:00:33 Test Item Value Reference Range Interpretation Comments MAGNESIUM (test code = 9101529755) 1.5 mg/dL 1.7-2.4 L Lab Interpretation (test code = Abnormal 91294-4) [facility] [place] [facility] METABOLIC PANEL (NA, K, CL, CO2, GLUCOSE, BUN, CREATININE, CA)2022-04-08 11:12:32 Test Item Value Reference Range Interpretation Comments NA (test code = 136 mmol/L 135-145 5124897550) K (test code = 4.1 mmol/L 3.5-5 0417384226) CL (test code = 108 mmol/L 98-108 9203192793) CO2 TOTAL (test code = 25 mmol/L 23-31 5448565922) AGAP (test code = 2-16 0200568666) BUN (test code = 10 mg/dL 7-23 1985537548) GLUCOSE (test code = 82 mg/dL 70-110 9152829872) CREATININE (test code = 1.10 mg/dL 0.6-1.25 3471427990) CALCIUM (test code = 8.3 mg/dL 8.6-10.6 L 6789707809) eGFR (test code = mL/min/1.73m2 0840403447) GILBERTO (test code = GILBERTO) Association of [...] tests). Lab Interpretation Abnormal (test code = 38625-9) [facility] [place] [facility]OS[facility]2022-08-16 11:12:32 Test Item Value Reference Range Interpretation Comments PHOSPHORUS (test code = 5552192427) 2.5 mg/dL 2.5-5 Lab Interpretation (test code = Normal 52494-9) [facility] WITH JOAF3840-37-16 10:47:27 Test Item Value Reference Range Interpretation [...] (test code = 54.4 fL 38.5-51.6 H 43020-5) RDW-CV (test code = 16.9 % 12.1-15.4 H 788-0) PLT (test code = See_Comment [Automated 777-3) message] The sy stem which generated this result transmitted reference range : 150 - 328 10*3/ ?L. The reference r meredith was not used to interpret this result as normal/abnormal . MPV (test code = 9.7 fL 9.8-13 L 93230-9) NRBC/100 WBC (test See_Comment [Automat ed code = 7093982197) message] The system which generated this result transmitted reference range : 0.0 - 10.0 /100 WBCs. The refer ence range was not u sed to interpret th is result as normal/abnormal . NRBC x10^3 (test code See_Comment [Auto mated = 6846808221) message] The s ystem which generated this result transmitted reference range : 10*3/?L. The reference range was not used to interpret this result as normal/abnormal . GRAN MAT (NEUT) % 54.7 % (test code = 770-8) IMM GRAN % (test code 0.40 % = 9682867184) LYMPH % (test code = 33.8 % 736-9) MONO % (test code = 8.7 % 5905-5) EOS % (test code = 2.0 % 713-8) BASO % (test code = 0.4 % 706-2) GRAN MAT x10^3(ANC) 2.95 10*3/uL 1.99-6.95 (test code = 3290870378) IMM GRAN x10^3 (test 0-0.06 code = 1052821946) LYMPH x10^3 (test code 1.82 10*3/uL 1.09-3.23 = 731-0) MONO x10^3 (test code 0.47 10*3/uL 0.36-1.02 = 742-7) EOS x10^3 (test code = 0.11 10*3/uL 0.06-0.53 711-2) BASO x10^3 (test code 0.01-0.09 = 704-7) Lab Interpretation Abnormal (test code = 34120-9) [facility] METABOLIC PANEL (NA, K, CL, CO2, GLUCOSE, BUN, CREATININE, CA)2022-04-06 09:47:17 Test Item Value Reference Range Interpretation Comments NA (test code = 134 mmol/L 135-145 L 7393419805) K (test code = 4.2 mmol/L 3.5-5 Slight 8966057474) hemolysis CL (test code = 114 mmol/L 98-108 H 8962884636) CO2 TOTAL (test code 16 mmol/L 23-31 L = 9629878557) AGAP (test code = 2-16 7397527330) BUN (test code = 16 mg/dL 7-23 Slight 7390047564) hemolysis GLUCOSE (test code = 79 mg/dL 70-110 3121684416) CREATININE (test code 1.00 mg/dL 0.6-1.25 = 5236299898) CALCIUM (test code = 7.5 mg/dL 8.6-10.6 L 0851962594) eGFR (test code = mL/min/1.73m2 2443643307) GILBERTO (test code = GILBERTO) Association of [...] tests). Lab Interpretation Abnormal (test code = 62846-1) [facility] 09:47:17 Test Item Value Reference Range Interpretation Comments MAGNESIUM (test code = 7982715858) 1.2 mg/dL 1.7-2.4 L Lab Interpretation (test code = Abnormal 32946-7) [facility] CampusL[facility] Acid Whole [id number] 09:16:49 Test Item Value Reference Range Interpretation Comments LACTIC ACID (test code = 1.35 mmol/L 0.5-2.2 0147668095) Lab Interpretation (test code = Normal 05136-7) [facility] WITH [id number] 09:13:32 Test Item Value Reference Range Interpretation [...] (test code = 52.4 fL 38.5-51.6 H 41504-4) RDW-CV (test code = 16.6 % 12.1-15.4 H 788-0) PLT (test code = See_Comment [Automated 777-3) message] The sy stem which generated this result transmitted reference range : 150 - 328 10*3/ ?L. The reference r meredith was not used to interpret this result as normal/abnormal . MPV (test code = 10.0 fL 9.8-13 92876-7) NRBC/100 WBC (test See_Comment [Automat ed code = 7156056434) message] The system which generated this result transmitted reference range : 0.0 - 10.0 /100 WBCs. The refer ence range was not u sed to interpret th is result as normal/abnormal . NRBC x10^3 (test code See_Comment [Auto mated = 0202536024) message] The s ystem which generated this result transmitted reference range : 10*3/?L. The reference range was not used to interpret this result as normal/abnormal . GRAN MAT (NEUT) % 48.6 % (test code = 770-8) IMM GRAN % (test code 0.20 % = 0931140967) LYMPH % (test code = 39.4 % 736-9) MONO % (test code = 9.3 % 5905-5) EOS % (test code = 1.9 % 713-8) BASO % (test code = 0.6 % 706-2) GRAN MAT x10^3(ANC) 2.36 10*3/uL 1.99-6.95 (test code = 6208904530) IMM GRAN x10^3 (test 0-0.06 code = 9769537988) LYMPH x10^3 (test code 1.91 10*3/uL 1.09-3.23 = 731-0) MONO x10^3 (test code 0.45 10*3/uL 0.36-1.02 = 742-7) EOS x10^3 (test code = 0.09 10*3/uL 0.06-0.53 711-2) BASO x10^3 (test code 0.03 10*3/uL 0.01-0.09 = 704-7) Lab Interpretation Abnormal (test code = 32203-0) [facility] CampusMAGNESIUM2022-08-12 07:34:48 Test Item Value Reference Range Interpretation Comments MAGNESIUM (test code = 6025021508) 1.8 mg/dL 1.7-2.4 Lab Interpretation (test code = Normal 39860-9) [facility] CampusACUTE CARE VENOUS BLOOD [id number] 18:40:18 Test Item Value Reference Range Interpretation Comments PH (test code = 7.32-7.42 L 8214779421) PCO2 PANKAJ (test code = See_Comment [Auto mated message] 1051468828) The system [employer] generated this result transmitted ref erence range: 41 - 51 mmHg. The reference r meredith was not used to interpret this result as normal/abnor mal. PO2 PANKAJ (test code = See_Comment L [Autom ated message] 4441885184) The system [employer] generated this result transmitted ref erence range: 25 - 40 mmHg. The reference r meredith was not used to interpret this result as normal/abnor mal. HCO3 PANKAJ (test code = See_Comment L [Auto mated message] 1199968760) The system [employer] generated this result transmitted ref erence range: 24 - 28 mEq/L. The reference r meredith was not used to interpret this result as normal/abnor mal. AC VBE(BEAKER) (test mEq/L code = 9894923776) Lab Interpretation (test Abnormal code = 48311-1) [facility] METABOLIC PANEL (NA, K, CL, CO2, GLUCOSE, BUN, CREATININE, CA)2022-04-03 18:33:26 Test Item Value Reference Range Interpretation Comments NA (test code = 129 mmol/L 135-145 L 9587317018) K (test code = 3.3 mmol/L 3.5-5 L 2530394813) CL (test code = 100 mmol/L 98-108 6418553913) CO2 TOTAL (test code = 19 mmol/L 23-31 L 9737022843) AGAP (test code = 2-16 3258557781) BUN (test code = 49 mg/dL 7-23 H 5923696521) GLUCOSE (test code = 75 mg/dL 70-110 5992335462) CREATININE (test code = 2.55 mg/dL 0.6-1.25 H 6809948428) CALCIUM (test code = 8.6 mg/dL 8.6-10.6 5121223563) eGFR (test code = mL/min/1.73m2 3019425224) GILBERTO (test code = GILBERTO) Association of [...] tests). Lab Interpretation Abnormal (test code = 77693-0) [facility] CampusOSMOLALITY, SERUM OR [id number] 15:45:31 Test Item Value Reference Range Interpretation Comments OSMOLALITY (test code = See_Comment [Au tomated message] 2692-2) The system [employer] generated this result transmitted ref erence range: 278 - 30 5 mOsm/kg. The re ference range was not u sed to interpret this result as normal/abnor mal. Lab Interpretation (test Normal code = 15107-4) [facility] CampusCB with [id number] 11:27:34 Test Item Value Reference Range Interpretation Comments WBC (test code = See_Comment [Automated 4890-2) message] The sy stem which generated this [...] RDW-SD (test code = 48.7 fL 38.5-51.6 57548-3) RDW-CV (test code = 15.9 % 12.1-15.4 H 788-0) PLT (test code = See_Comment [Automated 777-3) message] The sy stem which generated this result transmitted reference range : 150 - 328 10*3/ ?L. The reference r meredith was not used to interpret this result as normal/abnormal . MPV (test code = 9.4 fL 9.8-13 L 76899-9) NRBC/100 WBC (test See_Comment [Automat ed code = 9917289254) message] The system which generated this result transmitted reference range : 0.0 - 10.0 /100 WBCs. The refer ence range was not u sed to interpret th is result as normal/abnormal . NRBC x10^3 (test code See_Comment [Auto mated = 5606287907) message] The s ystem which generated this result transmitted reference range : 10*3/?L. The reference range was not used to interpret this result as normal/abnormal . GRAN MAT (NEUT) % 56.0 % (test code = 770-8) IMM GRAN % (test code 0.50 % = 1368851040) LYMPH % (test code = 33.2 % 736-9) MONO % (test code = 8.6 % 5905-5) EOS % (test code = 1.1 % 713-8) BASO % (test code = 0.6 % 706-2) GRAN MAT x10^3(ANC) 3.64 10*3/uL 1.99-6.95 (test code = 1255555264) IMM GRAN x10^3 (test 0.03 10*3/uL 0-0.06 code = 6158832351) LYMPH x10^3 (test code 2.16 10*3/uL 1.09-3.23 = 731-0) MONO x10^3 (test code 0.56 10*3/uL 0.36-1.02 = 742-7) EOS x10^3 (test code = 0.07 10*3/uL 0.06-0.53 711-2) BASO x10^3 (test code 0.04 10*3/uL 0.01-0.09 = 704-7) Lab Interpretation Abnormal (test code = 20099-7) [facility] Metabolic Panel (NA, K, CL, CO2, GLUCOSE, BUN, CREATININE, CA)2022-04-03 10:08:59 Test Item Value Reference Range Interpretation Comments NA (test code = 125 mmol/L 135-145 L 4203020626) K (test code = 3.7 mmol/L 3.5-5 5886609929) CL (test code = 96 mmol/L 98-108 L 6620808280) CO2 TOTAL (test code = 15 mmol/L 23-31 L 6594280587) AGAP (test code = 2-16 0904977163) BUN (test code = 50 mg/dL 7-23 H 9954954734) GLUCOSE (test code = 86 mg/dL 70-110 0954830359) CREATININE (test code = 3.86 mg/dL 0.6-1.25 H 1133331237) CALCIUM (test code = 8.6 mg/dL 8.6-10.6 3736675581) eGFR (test code = mL/min/1.73m2 3839323345) GILBERTO (test code = GILBERTO) Association of [...] tests). Lab Interpretation Abnormal (test code = 24297-3) [facility] CampusLactic Acid Whole [id number] 04:09:02 Test Item Value Reference Range Interpretation Comments LACTIC ACID (test code = 1.54 mmol/L 0.5-2.2 1871788687) Lab Interpretation (test code = Normal 18829-4) [facility] [id number] 00:25:08 Test Item Value Reference Range Interpretation Comments LACTIC ACID (test code = 2.50 mmol/L 0.5-2.2 H 9856865031) Lab Interpretation (test code = Abnormal 87766-4) [facility] WITH [id number] 20:19:45 Test Item Value Reference Range Interpretation Comments WBC (test code = See_Comment H [Automated 6690-2) message] The system which generated this result transmit dain reference range : 4.20 - 10.70 10*3/?L. The reference range was not used to interpret this result as normal/abnormal . RBC (test code = See_Comment [Automated 189-8) message] The system which generated this result [...] RDW-SD (test code = 49.8 fL 38.5-51.6 14770-4) RDW-CV (test code = 16.4 % 12.1-15.4 H 788-0) PLT (test code = See_Comment H [Automated 777-3) message] The system which generated this result transmit dain reference range : 150 - 328 10*3/ ?L. The reference range was not u sed to interpret th is result as normal/abnormal . MPV (test code = 10.7 fL 9.8-13 11113-6) NRBC/100 WBC (test See_Comment [Automat ed code = 9372216792) message] The system which generated this result transmit dain reference range : 0.0 - 10.0 /100 WBCs. The reference range was not used to interpret this result as normal/abnormal . NRBC x10^3 (test code See_Comment [Auto mated = 5508038262) message] The system which generated this result transmit dain reference range : 10*3/?L. The reference range was not used to interpret this result as normal/abnormal . GRAN MAT (NEUT) % 73.4 % (test code = 770-8) IMM GRAN % (test code 0.60 % = 6408445373) LYMPH % (test code = 17.2 % 736-9) MONO % (test code = 8.2 % 5905-5) EOS % (test code = 0.2 % 713-8) BASO % (test code = 0.4 % 706-2) GRAN MAT x10^3(ANC) 10.17 10*3/uL 1.99-6.95 H (test code = 9051247296) IMM GRAN x10^3 (test 0.09 10*3/uL 0-0.06 H code = 7461974295) LYMPH x10^3 (test code 2.38 10*3/uL 1.09-3.23 = 731-0) MONO x10^3 (test code 1.13 10*3/uL 0.36-1.02 H = 742-7) EOS x10^3 (test code = 0.03 10*3/uL 0.06-0.53 L 711-2) BASO x10^3 (test code 0.05 10*3/uL 0.01-0.09 = 704-7) Lab Interpretation Abnormal (test code = 77529-8) [facility] CampusCB W/AUTO [id number] 00:06:00 Test Item Value Reference Range Interpretation [...] = MX#) 0.5 k/mm3 0.1-0.8 N TROPONIN-I [id number] 15:07:00 Test Item Value Reference Range Interpretation Comments TROPONIN-I RAPID 0.00 ng/mL 0.00-0.08 N Performed b y certified (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 BASIC METABOLIC [id number] 14:56:00 Test Item Value Reference Range Interpretation [...] MG/DL 70-110 N - XR CHEST 1 [id number] 00:00:00 [facility] : 1970 Sex: M FAX: Sabi Urias MD [phone] [place]: [place] St: REG Name: HOANG JOSEPH Castro FSED : 1970 Age/S: 52/M [address] [facility] Unit #: [id number] Loc: [place], [place] [address] Phys: Sabi Urias MD Acct: [id number] Dis Date: Status: REG ER PHONE #: Exam Date: 03/29/2022 1501 FAX #: Reason: Weakness EXAMS: CPT CODE: [id number] XR CHEST 1 V 69929 PROCEDURE INFORMATION: Exam: XR Chest Exam date [...] 03/29/2022 (1531) PAGE 1 Signed ReportHEPATIC FUNCTION [id number] 06:45:03 Test Item Value Reference Range Interpretation [...] (test code = 13 U/L 6-55 347) [employer] Machine Operator ID - ERWIN WBASIC METABOLIC [id number] 06:45:02 Test Item Value Reference Range Interpretation [...] S NOT APPLICABLE FOR DIALYSIS PATIEN TS. [employer] Machine Operator ID Philipp HOOD WCBC W/PLT COUNT & AUTO [id number] 06:26:54 Test Item Value Reference Range Interpretation [...] (BEAKER) (test code = 2801) U/S, RENAL, [id number] 19:23:00Reason for exam:->acute kidney [facility] 1970 Sex: MFINAL [...] SARS-Co V-2 (test code = target nucleic 82225-3) acids are not detected in thi s [...] om SARS-CoV-2 in a [facility] s suspected of COVID-19 by the ir healthcare provider. IGLBERTO (test code = This test has been [...] revoked sooner. Fact Sheet for Healthcare Providers: https://www.[employer]/Documents/Xp ert%20Xpress%20SAR S%20CoV-2/Fact%20S heets/302-3802%20S ARS-COV-2%20HEALTH CARE%20PROVIDERS%2 0FACT%20SHEET.pdf Fact Sheet for Healthcare Patients: https://www.[employer]/Documents/Xp ert%20Xpress%20SAR S%20CoV-2/Fact%20S heets/302-3801%20S ARS-COV-2%20PATIEN T%20FACT%20SHEET.p df Lab Interpretation Normal (test code = 84788-2) [facility]2022-03-06 19:17:07 Test Item Value Reference Interpretation Comments Range SARS-COV2/RT-PCR Negative Negative The SARS-Co V-2 (test code = target nucleic 25380-2) acids are not detected in thi s [...] revoked sooner. Fact Sheet for Healthcare Providers: https://www.[employer]/Documents/Xp ert%20Xpress%20SAR S%20CoV-2/Fact%20S heets/302-3802%20S ARS-COV-2%20HEALTH CARE%20PROVIDERS%2 0FACT%20SHEET.pdf Fact Sheet for Healthcare Patients: https://www.[employer]/Documents/Xp ert%20Xpress%20SAR S%20CoV-2/Fact%20S heets/302-3801%20S ARS-COV-2%20PATIEN T%20FACT%20SHEET.p df Lab Interpretation Normal (test code = 16220-3) [facility]2022-[facility]-06 19:17:07 Test Item Value Reference Interpretation Comments Range SARS-COV2/RT-PCR Negative Negative The SARS-Co V-2 (test code = target nucleic 48736-8) acids are not detected in thi s [...] revoked sooner. Fact Sheet for Healthcare Providers: https://www.[employer]/Documents/Xp ert%20Xpress%20SAR S%20CoV-2/Fact%20S heets/3023802%20S ARS-COV-2%20HEALTH CARE%20PROVIDERS%2 0FACT%20SHEET.pdf Fact Sheet for Healthcare Patients: https://www.[employer]/Documents/Xp ert%20Xpress%20SAR S%20CoV-2/Fact%20S heets/302-3801%20S ARS-COV-2%20PATIEN T%20FACT%20SHEET.p df Lab Interpretation Normal (test code = 71906-9) [facility]2022-03-06 19:17:07 Test Item Value Reference Interpretation Comments Range SARS-COV2/RT-PCR Negative Negative The SARS-Co V-2 (test code = target nucleic 90158-7) acids are not detected in thi s [...] revoked sooner. Fact Sheet for Healthcare Providers: https://www.[employer]/Documents/Xp ert%20Xpress%20SAR S%20CoV-2/Fact%20S heets/302-3802%20S ARS-COV-2%20HEALTH CARE%20PROVIDERS%2 0FACT%20SHEET.pdf Fact Sheet for Healthcare Patients: https://www.[employer]/Documents/Xp ert%20Xpress%20SAR S%20CoV-2/Fact%20S heets/302-3801%20S ARS-COV-2%20PATIEN T%20FACT%20SHEET.p df Lab Interpretation Normal (test code = 10617-6) [facility]2022-03-06 19:17:07 Test Item Value Reference Interpretation Comments Range SARS-COV2/RT-PCR Negative Negative The SARS-Co V-2 (test code = target nucleic 17016-5) acids are not detected in thi s [...] revoked sooner. Fact Sheet for Healthcare Providers: https://www.[employer]/Documents/Xp ert%20Xpress%20SAR S%20CoV-2/Fact%20S heets/302-3802%20S ARS-COV-2%20HEALTH CARE%20PROVIDERS%2 0FACT%20SHEET.pdf Fact Sheet for Healthcare Patients: https://www.[employer]/Documents/Xp ert%20Xpress%20SAR S%20CoV-2/Fact%20S heets/302-3801%20S ARS-COV-2%20PATIEN T%20FACT%20SHEET.p df Lab Interpretation Normal (test code = 01131-0) [facility]2022-03-06 19:17:07 Test Item Value Reference Interpretation Comments Range SARS-COV2/RT-PCR Negative Negative The SARS-Co V-2 (test code = target nucleic 48005-6) acids are not detected in thi s [...] revoked sooner. Fact Sheet for Healthcare Providers: https://www.[employer]/Documents/Xp ert%20Xpress%20SAR S%20CoV-2/Fact%20S heets/302-9179%20S ARS-COV-2%20HEALTH CARE%20PROVIDERS%2 0FACT%20SHEET.pdf Fact Sheet for Healthcare Patients: https://www.[employer]/Documents/Xp ert%20Xpress%20SAR S%20CoV-2/Fact%20S heets/302-2991%20S ARS-COV-2%20PATIEN T%20FACT%20SHEET.p df Lab Interpretation Normal (test code = 09661-2) [facility]2022-03-06 19:17:07 Test Item Value Reference Interpretation Comments Range SARS-COV2/RT-PCR Negative Negative The SARS-Co V-2 (test code = target nucleic 87070-9) acids are not detected in thi s [...] revoked sooner. Fact Sheet for Healthcare Providers: https://www.[employer]/Documents/Xp ert%20Xpress%20SAR S%20CoV-2/Fact%20S heets/302-3802%20S ARS-COV-2%20HEALTH CARE%20PROVIDERS%2 0FACT%20SHEET.pdf Fact Sheet for Healthcare Patients: https://www.[employer]/Documents/Xp ert%20Xpress%20SAR S%20CoV-2/Fact%20S heets/302-3801%20S ARS-COV-2%20PATIEN T%20FACT%20SHEET.p df Lab Interpretation Normal (test code = 82777-0) [facility]2022-03-06 19:17:07 Test Item Value Reference Interpretation Comments Range SARS-COV2/RT-PCR Negative Negative The SARS-Co V-2 (test code = target nucleic 42878-1) acids are not detected in thi s [...] revoked sooner. Fact Sheet for Healthcare Providers: https://www.[employer]/Documents/Xp ert%20Xpress%20SAR S%20CoV-2/Fact%20S heets/302-3802%20S ARS-COV-2%20HEALTH CARE%20PROVIDERS%2 0FACT%20SHEET.pdf Fact Sheet for Healthcare Patients: https://www.[employer]/Documents/Xp ert%20Xpress%20SAR S%20CoV-2/Fact%20S heets/302-3801%20S ARS-COV-2%20PATIEN T%20FACT%20SHEET.p df Lab Interpretation Normal (test code = 03593-3) [facility])2022-03-06 19:17:07 Test Item Value Reference Range Interpretation Comments SARS-COV2/RT-PCR Negative Negative The SARS-Co V-2 target (test code = nucleic acids a re not 6166706) detected in thi s specimen. Negative result [...] individuals suspected of CO VID-[facility]. This test has been authorized [...] revoked sooner. Fact Sheet for Healthcare Providers: https://www.[employer]/Documents/Xpert%20Xpress%20SARS%20CoV-2/Fact%20Sheets/3023802%76QJEY-PGE-4%20 HEALTHCARE%20PROVIDERS%20FACT%20SHEET.pdf Fact Sheet for Healthcare Patients: https://www.[employer]/Documents/Xpert%20Xp ress%20SARS%20CoV-2/Fact%20Sheets/302-3801%72VPUU-PJQ-5%20PATIENT%20FACT%20SHEET .pdfCREATINE KINASE (CK)2022-03-06 16:19:14 Test Item Value Reference Range Interpretation Comments CREATINE KINASE TOTAL (BEAKER) (test 141 U/L 29-200 code = 380) [employer] Machine Operator ID - BST4, [id number] 15:13:16 Test Item Value Reference Range Interpretation Comments FREE T4 (BEAKER) (test code = 655) 0.95 ng/dL 0.70-1.48 [employer] Machine Operator ID - BSTSH/FREE T4 IF [id number] 15:13:16 Test Item Value Reference Range Interpretation Comments THYROID STIMULATING HORMONE 2.060 uIU/mL 0.350-4.940 (GILMAR) (test code = 772) [employer] Machine Operator ID - BSB-TYPE NATRIURETIC FACTOR (BNP)2022-03-06 14:26:30 Test Item Value Reference Range Interpretation Comments B-TYPE NATRIURETIC PEPTIDE (GILMAR) < pg/mL 0-100 (test code = 700) [employer] Machine Operator ID - JSHIGH SENSITIVITY TROPONIN [id number] 14:14:54 Test Item Value Reference Range Interpretation Comments HIGH SENSITIVITY < pg/ml See_Comment [Automated message] TROPONIN I (test code = The system which 2942041) generated this result transmitted ref erence range: <=35. Th e reference range was not used to interpr et this result as normal/abnormal . [employer] Weaving Machine Operator ID - JSThe GROUNDHAND STAT High Sensitivity Troponin-I results should be used in conjunctionwith other diagnostic information such as ECG, clinical observations and information, and patient symptoms to aid in the diagnosis of DC.RAD, CHEST, 1 VIEW, NON [id number] 14:10:00Reason for exam:- >NEUROLOGIC PROBLEMShould this be performed at the bedside?->Yes [facility] 1970 Sex: MFINAL REPORT Chest, 1 view, 03/06/2022 2:03 PM. History: Neurologic problem. Comparison: 03/28/2019. Discussion: The cardiomediastinal silhouette and pulmonary vasculature are within normal limits for a portable exam. The lungs are clear without evidence of consolidation or effusion. The soft tissues and osseous structures are intact. IMPRESSION: No acute cardiopulmonary abnormality. Signed: Hellen, Alona MDReport Verified Date/Time: 03/06/2022 14:10:44 REHENSIVE METABOLIC [id number] 14:08:22 Test Item Value Reference Range Interpretation [...] S NOT APPLICABLE FOR DIALYSIS PATIEN TS. [employer] We[employer] Machine Operator ID - [id number] 14:07:49 Test Item Value Reference Range Interpretation Comments MAGNESIUM (BEAKER) (test code = 2.0 mg/dL 1.6-2.6 627) [employer] Machine Operator ID - [id number] 14:07:49 Test Item Value Reference Range Interpretation Comments PHOSPHORUS (BEAKER) (test code = 5.6 mg/dL 2.3-4.7 H 604) [employer] Machine Operator ID - JSLACTIC ACID, [id number] 13:51:04 Test Item Value Reference Range Interpretation Comments LACTATE BLOOD VENOUS 1.32 mmol/L 0.50-2.20 Specime n slightly (2) (BEAKER) (test hemolyzed code = 9572) [employer] Weaving Machine Operator ID - JSCBC W/PLT COUNT & AUTO [id number] 13:47:24 Test Item Value Reference Range Interpretation [...] (BEAKER) (test code = 2801) Coronavirus, CoVID-19, [id number] 01:07:20 Test Item Value Reference Range Interpretation Comments COVID-19 (SARS-COV-2) Not Detected Not Detected INTERP RETATION: No (test code = 84846-6) detect able levels of SARS-CoV-2 Coronavirus (COVID-19) [...] SARS-CoV-2 mole cular diagnostic assa y utilizes Vacuum Spindle Sander Mediated Amplification ( TMA) technology to r apidly detect the SARS -CoV-2 (COVID-19) viru s from respiratory adriana ples. In accordance w ith the FDA's kamran nce document "Polic y for Diagnostic Test s for Coronavirus Disease-2019 du [place] the Public Heal Emergency", thi s test was developed, and its performance characteristics were verified by the [facility] molecular diagn ostics laboratory and is authorized for clinical diagno stic use. This labor atory is certified un estevan the Clinical Laboratory Improvement Amendments (CLI A) as qualified to pe rform high complexity clinical labora tory testing. Lab Interpretation Normal (test code = 36850-3) Maged Ruelasronavirus, CoVID-19, [id number] 01:07:20 Test Item Value Reference Range Interpretation Comments COVID-19 (SARS-COV-2) Not Detected Not Detected INTERP RETATION: No (test code = 73231-3) detect able levels of SARS-CoV-2 Coronavirus (COVID-19) [...] SARS-CoV-2 mole cular diagnostic assa y utilizes Vacuum Spindle Sander Mediated Amplification ( TMA) technology to r apidly detect the SARS -CoV-2 (COVID-19) viru s from respiratory adriana ples. In accordance w ith the FDA's kamran nce document "Polic y for Diagnostic Test s for Coronavirus Disease-2019 [facility]", thi s test was developed, and its performance characteristics were verified by the [facility] molecular diagn ostics laboratory and is authorized for clinical diagno stic use. This labor atory is certified un [place] the Clinical Laboratory Improvement Amendments (CLI A) as qualified to pe rform high complexity clinical labora tory testing. Lab Interpretation Normal (test code = 38912-1) Maged Ruelasronavirus, CoVID-19, [id number] 01:07:20 Test Item Value Reference Range Interpretation Comments COVID-19 (SARS-COV-2) Not Detected Not Detected INTERP RETATION: No (test code = 72839-9) detect able levels of SARS-CoV-2 Coronavirus (COVID-19) [...] SARS-CoV-2 mole cular diagnostic assa y utilizes Vacuum Spindle Sander Mediated Amplification ( TMA) technology to r apidly detect the SARS -CoV-2 (COVID-19) viru s from respiratory adriana ples. In accordance w ith the FDA's kamran nce document "Polic y for Diagnostic Test s for Coronavirus Disease-2019 [facility]", thi s test was developed, and its performance characteristics were verified by the [facility] molecular diagn ostics laboratory and is authorized for clinical diagno stic use. This labor atory is certified un [place] the Clinical Laboratory Improvement Amendments (CLI A) as qualified to pe rform high complexity clinical labora tory testing. Lab Interpretation Normal (test code = 69273-3) [facility], CoV[facility]19, [id number] 01:07:20 Test Item Value Reference Range Interpretation Comments COVID-19 (SARS-COV-2) Not Detected Not Detected INTERP RETATION: No (test code = 58935-6) detect able levels of SARS-CoV-2 Coronavirus (COVID-19) [...] SARS-CoV-2 mole cular diagnostic assa y utilizes Vacuum Spindle Sander Mediated Amplification ( TMA) technology to r apidly detect the SARS -CoV-2 (COVID-19) viru s from respiratory adriana ples. In accordance w ith the FDA's karman nce document "Polic y for Diagnostic Test s for Coronavirus Disease-2019 [facility] the [facility]", thi s test was developed, and its performance characteristics were verified by the [facility] molecular diagn ostics laboratory and is authorized for clinical diagno stic use. This labor atory is certified un [place] the Clinical Laboratory Improvement Amendments (CLI A) as qualified to pe rform high complexity clinical labora tory testing. Lab Interpretation Normal (test code = 92903-9) [facility], CoVID-19, [id number] 01:07:20 Test Item Value Reference Range Interpretation Comments COVID-19 (SARS-COV-2) Not Detected Not Detected INTERP RETATION: No (test code = 57603-6) detect able levels of SARS-CoV-2 Coronavirus (COVID-19) [...] SARS-CoV-2 mole cular diagnostic assa y utilizes Vacuum Spindle Sander Mediated Amplification ( TMA) technology to r apidly detect the SARS -CoV-2 (COVID-19) viru s from respiratory adriana ples. In accordance w ith the FDA's kamran nce document "Polic y for Diagnostic Test s for Coronavirus Disease-2019 [facility]", thi s test was developed, and its performance characteristics were verified by the [facility] molecular diagn ostics laboratory and is authorized for clinical diagno stic use. This labor atory is certified un [place] the Clinical Laboratory Improvement Amendments (CLI A) as qualified to pe rform high complexity clinical labora tory testing. Lab Interpretation Normal (test code = 12810-6) [place] KandiCoronavirus, CoVID-19, [id number] 01:07:20 Test Item Value Reference Range Interpretation Comments COVID-19 (SARS-COV-2) Not Detected Not Detected INTERP RETATION: No (test code = 77448-7) detect able levels of SARS-CoV-2 Coronavirus (COVID-19) [...] SARS-CoV-2 mole cular diagnostic assa y utilizes Vacuum Spindle Sander Mediated Amplification ( TMA) technology to r apidly detect the SARS -CoV-2 (COVID-19) viru s from respiratory adriana ples. In accordance w ith the FDA's kamran nce document "Polic y for Diagnostic Test s for Coronavirus Disease-2019 du ring the Public Heal Emergency", thi s test was developed, and its performance characteristics were verified by the [facility] molecular diagn ostics laboratory and is authorized for clinical diagno stic use. This labor atory is certified un [place] the Clinical Laboratory Improvement Amendments (CLI A) as qualified to pe rform high complexity clinical labora tory testing. Lab Interpretation Normal (test code = 27057-7) [facility] ORF1ab Resp Ql OLENA+xodqo2533-27-19 01:07:20 Test Item Value Reference Range Interpretation Comments Hospitalized? (test No code = 06361-2) ICU? (test code = No 57907-4) Symptomatic as No defined by CDC? (test code = 84072-6) Employed in No Healthcare? (test code = 05126-5) Resident in a No congregate care setting (including nursing homes, residential care for people with intellectual and developmental disabilities, psychiatric treatment facilities, group homes, board and care homes, homeless intermediate, foster care or other): (test code = 09444-7) SARS-CoV-2 ORF1ab NOT DETECTED Not Detected INTERPRETA TION: No Resp Ql OLENA+probe detectable levels of (test code = SARS-CoV-2 65018-5) Coronavirus (COVID-19) were present in this patient's [...] SARS-CoV-2 mole cular diagnostic assa y utilizes Vacuum Spindle Sander Mediated Amplification ( TMA) technology to r apidly detect the SARS -CoV-2 (COVID-19) viru s from respiratory adriana ples. In accordance with\\XC2A0\\the FDA's guidance docume nt "Policy for Diagnostic Test s for Coronavirus Disease-2019 du ring the Public Heal Emergency", amalia s test was developed, and its performance characteristics were verified by the [facility] molecular diagn ostics laboratory and is authorized for clinical diagno stic use. \\XC2A0\\Thi s laboratory is certified under the Clinical Labora tory Improvement Amendments (CLI A) as qualified to pe rform high complexity clinical labora tory testing. POCT GLUCOSE POC docked [id number] 08:09:01 Test Item Value Reference Range Interpretation Comments Glucose POC (test code = 56477178) 85 mg/dL 74-106 Lab Interpretation (test code = Normal 90598-2) [facility] GLUCOSE POC docked akqhvp9199-79-70 08:09:01 Test Item Value Reference Range Interpretation Comments Glucose POC (test code = 51333305) 85 mg/dL 74-106 Lab Interpretation (test code = Normal 37176-0) [facility] usofdw4201-24-40 08:09:01 Test Item Value Reference Range Interpretation Comments Glucose POC (test code = 14493232) 85 mg/dL 74-106 Lab Interpretation (test code = Normal 64728-8) [facility] lgshws2251-53-11 08:09:01 Test Item Value Reference Range Interpretation Comments Glucose POC (test code = 56564683) 85 mg/dL 74-106 Lab Interpretation (test code = Normal 81816-5) [facility] tmkcxx5263-29-37 08:09:01 Test Item Value Reference Range Interpretation Comments Glucose POC (test code = 23360198) 85 mg/dL 74-106 Lab Interpretation (test code = Normal 37944-8) [facility] zmmvym3301-26-48 08:09:01 Test Item Value Reference Range Interpretation Comments Glucose POC (test code = 94977270) 85 mg/dL 74-106 Lab Interpretation (test code = Normal 39885-5) [facility] ORF1ab Resp Ql OLENA+sdrcj7161-49-14 23:25:40 Test Item Value Reference Range Interpretation Comments Hospitalized? (test No code = 49275-8) ICU? (test code = No 31256-3) Symptomatic as No defined by CDC? (test code = 64768-7) Employed in No Healthcare? (test code = 49633-0) Resident in a No congregate care setting (including nursing homes, residential care for people with intellectual and developmental disabilities, psychiatric treatment facilities, group homes, board and care homes, homeless intermediate, foster care or other): (test code = 29648-0) SARS-CoV-2 ORF1ab NOT DETECTED Not Detected INTERPRETA TION: No Resp Ql OLENA+probe detectable levels of (test code = SARS-CoV-2 47089-8) Coronavirus (COVID-19) were present in this patient's [...] SARS-CoV-2 mole cular diagnostic assa y utilizes Vacuum Spindle Sander Mediated Amplification ( TMA) technology to r apidly detect the SARS -CoV-2 (COVID-19) viru s from respiratory adriana ples. In accordance with\\XC2A0\\the FDA's guidance docume nt "Policy for Diagnostic Test s for Coronavirus Disease-2018 du [facility] the Public [facility] Emergency", amalia s test was developed, and its performance characteristics were verified by the [facility] molecular diagn ostics laboratory and is authorized for clinical diagno stic use. \\XC2A0\\Thi s laboratory is certified under the Clinical Labora tory Improvement Amendments (CLI A) as qualified to pe rform high complexity clinical labora tory testing. 12 Lead [id number] 15:46:1012 LEAD EKG FOR [facility] Test Date: 7883-93-80Vzm Name: DORA JOSEPH Department: 5ECIPatient ID: [id number] Room: Gender: M Director Camp: [id number]: 1970 Requested By: SUSHIL LOERA [place] Number: [id number] Reading MD: Rene Patterson MeasurementsIntervals Taft Rate: 61 P: 72PR: 152 QRS: 55QRSD: 106 T: 63QT: 398 QTc: 400 Interpretive StatementsSINUS RHYTHMPOSSIBLE RIGHT VENTRICULAR CONDUCTION DELAY [RSR (QR) IN V1/V2]Electronically Signed On 01-22-2022 8:30:45 CDT by [place] [address] Lead [id number] 15:46:1012 LEAD EKG FOR [facility] Test Date: 9391-07-70Zzs Name: DORA JOSEPH Department: 5ECIPatient ID: [id number] Room: Gender: M Director Camp: [id number]: 1970 Requested By: SUSHIL [place] Number: [id number] Reading MD: Rene Patterson MeasurementsIntervals Taft Rate: 61 P: 72PR: 152 QRS: 55QRSD: 106 T: 63QT: 398 QTc: 400 Interpretive StatementsSINUS RHYTHMPOSSIBLE RIGHT VENT RICULAR CONDUCTION DELAY [RSR (QR) IN V1/V2]Electronically Signed On 01-22-2022 8:30:45 CDT by Rene Valle Xqexmd60 Lead [id number] 15:46:1012 LEAD EKG FOR [facility] Test Date: 1683-61-17Zmk Name: DORA JOSEPH Department: 5ECIPatient ID: [id number] Room: Gender: M Director Camp: [id number]: 1970 Requested By: SUSHIL Cho Number: [id number] Reading MD: Rene Patterson MeasurementsIntervals Taft Rate: 61 P: 72PR: 152 QRS: 55QRSD: 106 T: 63QT: 398 QTc: 400 Interpretive StatementsSINUS RHYTHMPOSSIBLE RIGHT VENTRICULAR CONDUCTION DELAY [RSR (QR) IN V1/V2]Electronically Signed On 01-22-2022 8:30:45 CDT by Rene HerWelltheon12 Lead [id number] 15:46:1012 LEAD EKG FOR [facility] Test Date: 4505-42-55Iur Name: DORA JOSEPH Department: 5ECIPatient ID: [id number] Room: Gender: M Director Camp: [id number]: 1970 Requested By: SUSHIL Cho Number: [id number] Reading MD: Rene Patterson MeasurementsIntervals Taft Rate: 61 P: 72PR: 152 QRS: 55QRSD: 106 T: 63QT: 398 QTc: 400 Interpretive StatementsSINUS RHYTHMPOSSIBLE RIGHT VENTRICULAR CONDUCTION DELAY [RSR (QR) IN V1/V2]Electronically Signed On 01-22-2022 8:30:45 CDT by Rene SadiTransceptaCompaWelltheon12 Lead [id number] 15:46:1012 LEAD EKG FOR [facility] Test Date: 8544-88-76Vxb Name: DORA JOSEPH Department: 5ECIPatient ID: [id number] Room: Gender: M Director Camp: [id number]: 1970 Requested By: SUSHIL Cho Number: [id number] Reading MD: Rene aPtterson MeasurementsIntervals Taft Rate: 61 P: 72PR: 152 QRS: 55QRSD: 106 T: 63QT: 398 QTc: 400 Interpretive StatementsSINUS RHYTHMPOSSIBLE RIGHT VENTRICULAR CONDUCTION DELAY [RSR (QR) IN V1/V2]Electronically Signed On 01-22-2022 8:30:[address] [facility] Lead [id number] 15:46:1012 LEAD EKG FOR [facility] Test Date: 3561-71-29Fkd Name: DORA JOSEPH Department: 5ECIPatient ID: [id number] Room: Gender: M Director Camp: [id number]: 1970 Requested By: SUSHIL Cho Number: [id number] Reading MD: Rene Patterson MeasurementsIntervals Taft Rate: 61 P: 72PR: 152 QRS: 55QRSD: 106 T: 63QT: 398 QTc: 400 Interpretive StatementsSINUS RHYTHMPOSSIBLE RIGHT VENTRI CULAR CONDUCTION DELAY [RSR (QR) IN V1/V2]Electronically Signed On 01-22-2022 8:30:[address] [facility]Coll[facility]eraSum[facility] CampusHIV 1+2 Ab+HIV1 p24 Ag SerPl Ql IA 2022-01-18 07:02:58 Test Item Value Reference Range Interpretation Comments HIV 1+2 Ab+HIV1 p24 Ag SerPl Ql IA NEGATIVE Negative (test code = 91421-3) [id number] 21:23:2512 LEAD EKG FOR [facility] Test Date: 0907-44-96Kop Name: DORA JOSEPH Department: 5520Patient ID: [id number] Room: 0A65Byurhv: M Director Camp: : 1970 Requested By: KARIN Reevesder Number: [id number] Reading MD: Chiara Calles MeasurementsIntervals Taft Rate: 72 P: 90PR:157 QRS: 87QRSD: 105 T: 90QT: 360 QTc: 384 Interpretive StatementsSINUS RHYTHMPOSSIBLE RIGHT VENTRICULAR CONDUCTION DELAY [RSR (QR) IN V1/V2]EARLY REPOLARIZATION [ST ELEVATION WITH NORMALLY INFLECTED T-WAVE]Electronically Signed On 01-17-2022 13:02:30 CDT by [facility] [place] [address]RolbunUDC4407-26-40 21:23:2512 LEAD EKG FOR [facility] Test Date: 4772-60-36Zrr Name: DORA JOSEPH Department: 5520Patient ID: [id number] Room: 4Q41Icywmi: M Director Camp: : 1970 Requested By: JESSICA AOrder Number: [id number] Reading MD: Chiara Calles MeasurementsIntervals Taft Rate: 72 P: 90PR: 157 QRS: 87QRSD: 105 T: 90QT: 360 QTc: 384 Interpretive StatementsSINUS RHYTHMPOSSIBLE RIGHT VENTRICULAR CONDUCTION DELAY [RSR (QR) IN V1/V2]EARLY REPOLARIZATION [ST ELEVATION WITH NORMALLY INFLECTED T-WAVE]Electronically Signed On 01-17-2022 13:02:30 CDT by [facility]Host CommitteeHolly [place] [address]VdvfdyATI4912-36-51 21:23:2512 LEAD EKG FOR [facility] Test Date: 4186-05-86Upg Name: DORA JOSEPH Department: 5520Patient ID: [id number] Room: 9C75Ajqczc: M Director Camp: : 1970 Requested By: KARIN BASSETT AOrder Number: [id number] Reading MD: Chiara Calles MeasurementsIntervals Taft Rate: 72 P: 90PR:157 QRS: 87QRSD: 105 T: 90QT: 360 QTc: 384 Interpretive StatementsSINUS RHYTHMPOSSIBLE RIGHT VENTRIC ULAR CONDUCTION DELAY [RSR (QR) IN V1/V2]EARLY REPOLARIZATION [ST ELEVATION WITH NORMALLY INFLECTED T-WAVE]Electronically Signed On 01-17-2022 13:02:30 CDT by [facility] [place] [address]JvfawvMJF9261-14-02 21:23:2512 LEAD EKG FOR [facility] Test Date: 2179-61-94Nvk Name: DORA JOSEPH Department: 5520Patient ID: [id number] Room: 0E47Dhhwzn: M Director Camp: : 1970 Requested By: KARIN BASSETT AOrder Number: [id number] Reading MD: Chiara Calles MeasurementsIntervals Taft Rate: 72 P: 90PR:157 QRS: 87QRSD: 105 T: 90QT: 360 QTc: 384 Interpretive StatementsSINUS RHYTHMPOSSIBLE RIGHT VENTRICULAR CONDUCTION DELAY [RSR (QR) IN V1/V2]EARLY REPOLARIZATION [ST ELEVATION WITH NORMALLY INFLECTED T-WAVE]Electronically Signed On 01-17-2022 13:02:30 CDT by [facility]Host CommitteeH[place] [address]VjydzgELZ5651-09-53 21:23:2512 LEAD EKG FOR [facility] Test Date: 7830-50-88Qrx Name: DORA JOSEPH Department: 5520Patient ID: [id number] Room: 2J86Nrknmu: M Director Camp: : 1970 Requested By: KARIN BASSETT AOrder Number: [id number] Reading MD: Chiara Calles MeasurementsIntervals Taft Rate: 72 P: 90PR: 157 QRS: 87QRSD: 105 T: 90QT: 360 QTc: 384 Interpretive StatementsSINUS RHYTHMPOSSIBLE RIGHT VENTRICULAR CONDUCTION DELAY [RSR (QR) IN V1/V2]EARLY REPOLARIZATION [ST ELEVATION WITH NORMALLY INFLECTED T-WAVE]Electronically Signed On 01-17-2022 13:02:30 CDT by [facility] [place] [address]JribclCYQ3721-17-70 21:23:2512 LEAD EKG FOR [facility] Test Date: 7585-25-72Brk Name: DORA JOSEPH Department: 5520Patient ID: [id number] Room: 9E83Yfmcil: M Director Camp: : 1970 Requested By: KARIN BASSETT AOrder Number: [id number] Reading MD: Chiara Calles MeasurementsIntervals Taft Rate: 72 P: 90PR: 157 QRS: 87QRSD: 105 T: 90QT: 360 QTc: 384 Interpretive StatementsSINUS RHYTHMPOSSIBLE RIGHT VENTRICULAR CONDUCTION DELAY [RSR (QR) IN V1/V2]EARLY REPOLARIZATION [ST ELEVATION WITH NORMALLY INFLECTED T-WAVE]Electronically Signed On 01-17-2022 13:02:30 CDT by [facility]ara [facility] ORF1ab Resp Ql OLENA+amunn3366-06-23 19:57:49 Test Item Value Reference Range Interpretation Comments Hospitalized? (test No code = 58892-3) ICU? (test code = No 86648-0) Symptomatic as No defined by CDC? (test code = 75507-6) Employed in No Healthcare? (test code = 04676-8) Resident in a No congregate care setting (including nursing homes, residential care for people with intellectual and developmental disabilities, psychiatric treatment facilities, group homes, board and care homes, homeless intermediate, foster care or other): (test code = 72943-5) SARS-CoV-2 ORF1ab NOT DETECTED Not Detected INTERPRETA TION: No Resp Ql OLENA+probe detectable levels of (test code = SARS-CoV-2 75395-7) Coronavirus (COVID-19) were present in this patient's [...] SARS-CoV-2 mole cular diagnostic assa y utilizes Vacuum Spindle Sander Mediated Amplification ( TMA) technology to r apidly detect the SARS -CoV-2 (COVID-19) viru s from respiratory adriana ples. In accordance with\\XC2A0\\the FDA's guidance docume nt "Policy for Diagnostic Test s for Coronavirus Disease-2019 du ring the Public Heal Emergency", amalia s test was developed, and its performance characteristics were verified by the [facility] molecular diagn ostics laboratory and is authorized for clinical diagno stic use. \\XC2A0\\Thi s laboratory is certified under the Clinical Labora tory Improvement Amendments (CLI A) as qualified to pe [facility] high complexity clinical labora tory testing. POCT CREATININE POC docked onnlma7527-31-88 13:57:55 Test Item Value Reference Range Interpretation Comments Creatinine POC (test 2.4 mg/dL 0.6-1.3 H Physici an Notified code = 20453351) eGFR If non- Am 30 See_Comment L [Aut omated message] (test code = 77662378) The s ystem which generated this result transmit dain reference range : >=90 mL/min/1.7 3 m2. The reference r meredith was not used to interpret this result as normal/abnormal . eGFR If Am (test 35 See_Comment L [A utomated message] code = 56964195) The system which generated this result transmit dain reference range : >=90 mL/min/1.7 3 m2. The reference r meredith was not used to interpret this result as normal/abnormal . Lab Interpretation (test Abnormal code = 60486-9) [facility] CREATININE POC docked nxzmfg1900-96-85 13:57:55 Test Item Value Reference Range Interpretation Comments Creatinine POC (test 2.4 mg/dL 0.6-1.3 H Physici an Notified code = 74727642) eGFR If non- Am 30 See_Comment L [Aut omated message] (test code = 30924461) The s ystem which generated this result transmit dain reference range : >=90 mL/min/1.7 3 m2. The reference r meredith was not used to interpret this result as normal/abnormal . eGFR If Am (test 35 See_Comment L [A utomated message] code = 13631563) The system which generated this result transmit dain reference range : >=90 mL/min/1.7 3 m2. The reference r meredith was not used to interpret this result as normal/abnormal . Lab Interpretation (test Abnormal code = 57541-7) [facility] CREATININE POC docked pcgves4363-10-84 13:57:55 Test Item Value Reference Range Interpretation Comments Creatinine POC (test 2.4 mg/dL 0.6-1.3 H Physici an Notified code = 20591759) eGFR If non- Am 30 See_Comment L [Aut omated message] (test code = 61546890) The s ystem which generated this result transmit dain reference range : >=90 mL/min/1.7 3 m2. The reference r meredith was not used to interpret this result as normal/abnormal . eGFR If Am (test 35 See_Comment L [A utomated message] code = 97122986) The system which generated this result transmit dain reference range : >=90 mL/min/1.7 3 m2. The reference r meredith was not used to interpret this result as normal/abnormal . Lab Interpretation (test Abnormal code = 85968-8) [facility] P[facility] docked ibrllp2497-61-05 13:57:55 Test Item Value Reference Range Interpretation Comments Creatinine POC (test 2.4 mg/dL 0.6-1.3 H Physici an Notified code = 96775513) eGFR If non- Am 30 See_Comment L [Aut omated message] (test code = 07190380) The s ystem which generated this result transmit dain reference range : >=90 mL/min/1.7 3 m2. The reference r meredith was not used to interpret this result as normal/abnormal . eGFR If Am (test 35 See_Comment L [A utomated message] code = 11213934) The system which generated this result transmit dain reference range : >=90 mL/min/1.7 3 m2. The reference r meredith was not used to interpret this result as normal/abnormal . Lab Interpretation (test Abnormal code = 47124-3) [facility] POC docked [id number] 13:57:55 Test Item Value Reference Range Interpretation Comments Creatinine POC (test 2.4 mg/dL 0.6-1.3 H Physici an Notified code = 98092396) eGFR If non- Am 30 See_Comment L [Aut omated message] (test code = 78361351) The s ystem which generated this result transmit dain reference range : >=90 mL/min/1.7 3 m2. The reference r meredith was not used to interpret this result as normal/abnormal . eGFR If Am (test 35 See_Comment L [A utomated message] code = 39752444) The system which generated this result transmit dain reference range : >=90 mL/min/1.7 3 m2. The reference r meredith was not used to interpret this result as normal/abnormal . Lab Interpretation (test Abnormal code = 93571-4) [facility] CREATININE POC docked semmra0537-12-13 13:57:55 Test Item Value Reference Range Interpretation Comments Creatinine POC (test 2.4 mg/dL 0.6-1.3 H Physici an Notified code = 22347620) eGFR If non- Am 30 See_Comment L [Aut omated message] (test code = 92936218) The s ystem which generated this result transmit dain reference range : >=90 mL/min/1.7 3 m2. The reference r meredith was not used to interpret this result as normal/abnormal . eGFR If Am (test 35 See_Comment L [A utomated message] code = 28799867) The system which generated this result transmit dain reference range : >=90 mL/min/1.7 3 m2. The reference r meredith was not used to interpret this result as normal/abnormal . Lab Interpretation (test Abnormal code = 20809-5) [facility] BMP POC docked vaawrd3477-73-12 13:48:46 Test Item Value Reference Range Interpretation Comments Sodium POC (test code = 126 mmol/L 136-145 L 56452032) Potassium POC (test code 4.4 mmol/L 3.5-5.1 = 22474132) Chloride POC (test code 100 mmol/L 98-107 = 64387929) TCO2 POC (test code = 17 mmol/L 21-32 L Physic aylin Notified 61013998) Urea Nitrogen POC (test 36 mg/dL 7-18 H code = 33333846) Glucose POC (test code = 114 mg/dL 74-106 H 35628583) Hemoglobin POC (test 11.9 g/dL 12-16 L code = 71389568) Hematocrit POC (test 35.0 % 37.0-47.0 L code = 36707386) Lab Interpretation (test Abnormal code = 10409-6) [facility] BMP POC docked lawbvv2820-15-31 13:48:46 Test Item Value Reference Range Interpretation Comments Sodium POC (test code = 126 mmol/L 136-145 L 78072343) Potassium POC (test code 4.4 mmol/L 3.5-5.1 = 03895988) Chloride POC (test code 100 mmol/L 98-107 = 85700763) TCO2 POC (test code = 17 mmol/L 21-32 L Physic aylin Notified 48518349) Urea Nitrogen POC (test 36 mg/dL 7-18 H code = 94584785) Glucose POC (test code = 114 mg/dL 74-106 H 17970957) Hemoglobin POC (test 11.9 g/dL 12-16 L code = 62995313) Hematocrit POC (test 35.0 % 37.0-47.0 L code = 70186224) Lab Interpretation (test Abnormal code = 01498-5) [facility] POC docked vxpohs0648-66-10 13:48:46 Test Item Value Reference Range Interpretation Comments Sodium POC (test code = 126 mmol/L 136-145 L 73784232) Potassium POC (test code 4.4 mmol/L 3.5-5.1 = 41383572) Chloride POC (test code 100 mmol/L 98-107 = 78465472) TCO2 POC (test code = 17 mmol/L 21-32 L Physic aylin Notified 39620682) Urea Nitrogen POC (test 36 mg/dL 7-18 H code = 77710747) Glucose POC (test code = 114 mg/dL 74-106 H 83668292) Hemoglobin POC (test 11.9 g/dL 12-16 L code = 66383639) Hematocrit POC (test 35.0 % 37.0-47.0 L code = 93886223) Lab Interpretation (test Abnormal code = 34677-8) [facility] POC docked ldbnod7059-98-59 13:48:46 Test Item Value Reference Range Interpretation Comments Sodium POC (test code = 126 mmol/L 136-145 L 53026257) Potassium POC (test code 4.4 mmol/L 3.5-5.1 = 69135034) Chloride POC (test code 100 mmol/L 98-107 = 11148095) TCO2 POC (test code = 17 mmol/L 21-32 L Physic aylin Notified 52011789) Urea Nitrogen POC (test 36 mg/dL 7-18 H code = 19540278) Glucose POC (test code = 114 mg/dL 74-106 H 66071712) Hemoglobin POC (test 11.9 g/dL 12-16 L code = 87336832) Hematocrit POC (test 35.0 % 37.0-47.0 L code = 92899264) Lab Interpretation (test Abnormal code = 64488-0) [facility] POC docked vujedh1940-32-17 13:48:46 Test Item Value Reference Range Interpretation Comments Sodium POC (test code = 126 mmol/L 136-145 L 05468940) Potassium POC (test code 4.4 mmol/L 3.5-5.1 = 27024595) Chloride POC (test code 100 mmol/L 98-107 = 14976733) TCO2 POC (test code = 17 mmol/L 21-32 L Physic aylin Notified 12623154) Urea Nitrogen POC (test 36 mg/dL 7-18 H code = 85375327) Glucose POC (test code = 114 mg/dL 74-106 H 40694499) Hemoglobin POC (test 11.9 g/dL 12-16 L code = 94039161) Hematocrit POC (test 35.0 % 37.0-47.0 L code = 80244171) Lab Interpretation (test Abnormal code = 89390-6) [facility] POC docked mapsht4101-55-68 13:48:46 Test Item Value Reference Range Interpretation Comments Sodium POC (test code = 126 mmol/L 136-145 L 55273976) Potassium POC (test code 4.4 mmol/L 3.5-5.1 = 74980071) Chloride POC (test code 100 mmol/L 98-107 = 66287887) TCO2 POC (test code = 17 mmol/L 21-32 L Physic aylin Notified 90732940) Urea Nitrogen POC (test 36 mg/dL 7-18 H code = 34498962) Glucose POC (test code = 114 mg/dL 74-106 H 42336845) Hemoglobin POC (test 11.9 g/dL 12-16 L code = 48564312) Hematocrit POC (test 35.0 % 37.0-47.0 L code = 65726586) Lab Interpretation (test Abnormal code = 86099-1) [facility] UsxqgyUCMK-RzZ-2 ORF1ab Resp Ql OLENA+wdhao5333-05-67 20:25:16 Test Item Value Reference Range Interpretation Comments Hospitalized? (test No code = 85580-8) ICU? (test code = No 92275-2) Symptomatic as No defined by CDC? (test code = 90083-5) Employed in No Healthcare? (test code = 87115-5) Resident in a No congregate care setting (including nursing homes, residential care for people with intellectual and developmental disabilities, psychiatric treatment facilities, group homes, board and care homes, homeless intermediate, foster care or other): (test code = 51115-4) SARS-CoV-2 ORF1ab NOT DETECTED Not Detected INTERPRETA TION: No Resp Ql OLENA+probe detectable levels of (test code = SARS-CoV-2 78803-2) Coronavirus (COVID-19) were present in this patient's [...] SARS-CoV-2 mole cular diagnostic assa y utilizes Vacuum Spindle Sander Mediated Amplification ( TMA) technology to r apidly detect the SARS -CoV-2 (COVID-19) viru s from respiratory adriana ples. In accordance with\\XC2A0\\the FDA's guidance docume nt "Policy for Diagnostic Test s for Coronavirus Disease-2019 du ring the Public Heal Emergency", amalia s test was developed, and its performance characteristics were verified by the [facility] molecular diagn ostics laboratory and is authorized for clinical diagno stic use. \\XC2A0\\Amalia s laboratory is certified under the Clinical Labora tory Improvement Amendments (CLI A) as qualified to pe rform high complexity clinical labora tory testing. POCT VBG POC docked cpvmyh1936-50-13 11:16:15 Test Item Value Reference Range Interpretation Comments pH, Pankaj POC (test code 7.32 7.33-7.43 L = 21229511) pCO2,Pankaj POC (test code 31.0 See_Comment L [Au tomated = 20243664) message] The sy stem which generated this result transmitted reference range : 38 - 50 mmHg. The reference range was not used to interpret this result as normal/abnormal . PO2, Venous POC (BKR) 44 See_Comment L [Auto mated (test code = 86696720) messa ge] The system which generated this result transmitted reference range : 50 - 75 mm Hg. The reference range was not used to interpret this result as normal/abnormal . Ionized Calcium POC 1.24 mmol/L 1.15-1.29 (test code = 99739282) HCO3, Pankaj POC (test 16 mmol/L 22-26 L code = 06076276) TCO2 POC (test code = 17 mmol/L 21-32 L 74671166) Base Deficit, Pankaj POC -9 (test code = 60758447) Sample Type (test code IVFLORENCE Physi erik Notified = 72413555) % Sat, Pankaj POC (test 77 % code = 15071279) Lab Interpretation Abnormal (test code = 66405-6) [facility] VBG POC docked [id number] 11:16:15 Test Item Value Reference Range Interpretation Comments pH, Pankaj POC (test code 7.32 7.33-7.43 L = 38236940) pCO2,Pankaj POC (test code 31.0 See_Comment L [Au tomated = 94069367) message] The sy stem which generated this result transmitted reference range : 38 - 50 mmHg. The reference range was not used to interpret this result as normal/abnormal . PO2, Venous POC (BKR) 44 See_Comment L [Auto mated (test code = 88690566) messa ge] The system which generated this result transmitted reference range : 50 - 75 mm Hg. The reference range was not used to interpret this result as normal/abnormal . Ionized Calcium POC 1.24 mmol/L 1.15-1.29 (test code = 28585797) HCO3, Pankaj POC (test 16 mmol/L 22-26 L code = 28477297) TCO2 POC (test code = 17 mmol/L 21-32 L 71282256) Base Deficit, Pankaj POC -9 (test code = 57011279) Sample Type (test code STEPAN Physi erik Notified = 92087138) % Sat, Pankaj POC (test 77 % code = 13380843) Lab Interpretation Abnormal (test code = 92573-6) [facility] VBG POC docked [id number] 11:16:15 Test Item Value Reference Range Interpretation Comments pH, Pankaj POC (test code 7.32 7.33-7.43 L = 51445448) pCO2,Pankaj POC (test code 31.0 See_Comment L [Au tomated = 86014028) message] The sy stem which generated this result transmitted reference range : 38 - 50 mmHg. The reference range was not used to interpret this result as normal/abnormal . PO2, Venous POC (BKR) 44 See_Comment L [Auto mated (test code = 58830352) messa ge] The system which generated this result transmitted reference range : 50 - 75 mm Hg. The reference range was not used to interpret this result as normal/abnormal . Ionized Calcium POC 1.24 mmol/L 1.15-1.29 (test code = 59429469) HCO3, Pankaj POC (test 16 mmol/L 22-26 L code = 07531634) TCO2 POC (test code = 17 mmol/L 21-32 L 30069258) Base Deficit, Pankaj POC -9 (test code = 91292178) Sample Type (test code STEPAN Physi erik Notified = 33265109) % Sat, Pankaj POC (test 77 % code = 41621975) Lab Interpretation Abnormal (test code = 20882-4) [facility] VBG POC docked [id number] 11:16:15 Test Item Value Reference Range Interpretation Comments pH, Pankaj POC (test code 7.32 7.33-7.43 L = 73835428) pCO2,Pankaj POC (test code 31.0 See_Comment L [Au tomated = 02231751) message] The sy stem which generated this result transmitted reference range : 38 - 50 mmHg. The reference range was not used to interpret this result as normal/abnormal . PO2, Venous POC (BKR) 44 See_Comment L [Auto mated (test code = 90077012) messa ge] The system which generated this result transmitted reference range : 50 - 75 mm Hg. The reference range was not used to interpret this result as normal/abnormal . Ionized Calcium POC 1.24 mmol/L 1.15-1.29 (test code = 02785101) HCO3, Pankaj POC (test 16 mmol/L 22-26 L code = 10020376) TCO2 POC (test code = 17 mmol/L 21-32 L 55558217) Base Deficit, Pankaj POC -9 (test code = 37870606) Sample Type (test code IVFLORENCE Physi erik Notified = 89994536) % Sat, Pankaj POC (test 77 % code = 61771418) Lab Interpretation Abnormal (test code = 84101-3) [facility] VBG POC docked [id number] 11:16:15 Test Item Value Reference Range Interpretation Comments pH, Pankaj POC (test code 7.32 7.33-7.43 L = 71703713) pCO2,Pankaj POC (test code 31.0 See_Comment L [Au tomated = 27375607) message] The sy stem which generated this result transmitted reference range : 38 - 50 mmHg. The reference range was not used to interpret this result as normal/abnormal . PO2, Venous POC (BKR) 44 See_Comment L [Auto mated (test code = 13495100) [employer]] The system which generated this result transmitted reference range : 50 - 75 mm Hg. The reference range was not used to interpret this result as normal/abnormal . Ionized Calcium POC 1.24 mmol/L 1.15-1.29 (test code = 81489564) HCO3, Pankaj POC (test 16 mmol/L 22-26 L code = 13640915) TCO2 POC (test code = 17 mmol/L 21-32 L 33772991) Base Deficit, Pankaj POC -9 (test code = 17560685) Sample Type (test code STEPAN Physi erik Notified = 28769279) % Sat, Pankaj POC (test 77 % code = 44064039) Lab Interpretation Abnormal (test code = 95353-1) [facility] VBG POC docked [id number] 11:16:15 Test Item Value Reference Range Interpretation Comments pH, Pankaj POC (test code 7.32 7.33-7.43 L = 84138116) pCO2,Pankaj POC (test code 31.0 See_Comment L [Au tomated = 68744521) message] The sy stem which generated this result transmitted reference range : 38 - 50 mmHg. The reference range was not used to interpret this result as normal/abnormal . PO2, Venous POC (BKR) 44 See_Comment L [Auto mated (test code = 60148035) messa ] The system which generated this result transmitted reference range : 50 - 75 mm Hg. The reference range was not used to interpret this result as normal/abnormal . Ionized Calcium POC 1.24 mmol/L 1.15-1.29 (test code = 26192873) HCO3, Pankaj POC (test 16 mmol/L 22-26 L code = 30448063) TCO2 POC (test code = 17 mmol/L 21-32 L 81382283) Base Deficit, Pankaj POC -9 (test code = 54147888) Sample Type (test code STEPAN Moeller cian Notified = 67571519) % Sat, Pankaj POC (test 77 % code = 51618602) Lab Interpretation Abnormal (test code = 11019-5) [place] [address] LEAD [id number] 20:59:5612 LEAD EKG FOR [facility] Test Date: 2139-63-21Jdp Name: DORA JOSEPH Department: 5520Patient ID: [id number] Room: Gender: M Director Camp: [id number]: 1970 Requested By: TANJA Garza Number: [id number] Reading MD: Chiara Calles MeasurementsIntervals Taft Rate: 75 P: 84PR: 153 QRS: 67QRSD: 104 T: 77QT: 344 QTc: 373 Interpretive StatementsSINUS RHYTHMPOSSIBLE RIGHT VENTRICULAR CONDUCTION DELAY [RSR (QR) IN V1/V2]Electronically Signed On 01-09-2022 8:27:19 CDT by [place]ara [place] [address] LEAD [id number] 20:59:5612 LEAD EKG FOR [facility] Test Date: 6324-99-21Bpu Name: DORA JOSEPH Department: 5520Patient ID: [id number] Room: Gender: M Director Camp: [id number]: 1970 Requested By: TANJA Garza Number: [id number] Reading MD: Chiara Calles MeasurementsIntervals Taft Rate: 75 P: 84PR: 153 QRS: 67QRSD: 104 T: 77QT: 344 QTc: 373 Interpretive StatementsSINUS RHYTHMPOSSIBLE RIGHT VENT RICULAR CONDUCTION DELAY [RSR (QR) IN V1/V2]Electronically Signed On 01-09-2022 8:27:19 CDT by SeeKoolLearningCompaWelltheon12 LEAD [id number] 20:59:5612 LEAD EKG FOR [facility] Test Date: 1385-60-06Ili Name: DORA JOSEPH Department: 5520Patient ID: [id number] Room: Gender: Director Camp: [id number]: 1970 Requested By: TANJA Garza Number: [id number] Reading MD: Chiara Calles MeasurementsIntervals Taft Rate: 75 P: 84PR: 153 QRS: 67QRSD: 104 T: 77QT: 344 QTc: 373 Interpretive StatementsSINUS RHYTHMPOSSIBLE RIGHT VENTRICULAR CONDUCTION DELAY [RSR (QR) IN V1/V2]Electronically Signed On 01-09-2022 8:27:19 CDT by Chiaar DavisKoolLearningCompaWelltheon12 LEAD [id number] 20:59:5612 LEAD EKG FOR [facility] Test Date: 5849-82-84Obl Name: DORA JOSEPH Department: 5520Patient ID: [id number] Room: Gender: Director Camp: [id number]: 1970 Requested By: TANJA Garza Number: [id number] Reading MD: Chiara Calles MeasurementsIntervals Taft Rate: 75 P: 84PR: 153 QRS: 67QRSD: 104 T: 77QT: 344 QTc: 373 Interpretive StatementsSINUS RHYTHMPOSSIBLE RIGHT VENTRICULAR CONDUCTION DELAY [RSR (QR) IN V1/V2]Electronically Signed On 01-09-2022 8:27:19 CDT by Chiara [employer] ChampionshipbakariCharge Payment12 LEAD [id number] 20:59:5612 LEAD EKG FOR [facility] Test Date: 4818-21-39Nlb Name: DORA [place] Department: 5520Patient ID: [id number] Room: Gender: M Director Camp: [id number]: 1970 Requested By: TANJA Garza Number: [id number] Reading MD: Chiara Calles MeasurementsIntervals Taft Rate: 75 P: 84PR: 153 QRS: 67QRSD: 104 T: 77QT: 344 QTc: 373 Interpretive StatementsSINUS RHYTHMPOSSIBLE RIGHT VENTRICULAR CONDUCTION DELAY [RSR (QR) IN V1/V2]Electronically Signed On 01-09-2022 8:27:19 CDT by [facility] Hospitalrobert AngelCarrie [place] [address] LEAD [id number] 20:59:5612 LEAD EKG FOR [facility] Test Date: 8903-34-14Uyd Name: DORA JOSEPH Department: 5520Patient ID: [id number] Room: Gender: M Director Camp: [id number]: 1970 Requested By: TANJA Garza Number: [id number] Reading MD: Chiara Calles MeasurementsIntervals Taft Rate: 75 P: 84PR: 153 QRS: 67QRSD: 104 T: 77QT: 344 QTc: 373 Interpretive StatementsSINUS RHYTHMPOSSIBLE RIGHT VENTR ICULAR CONDUCTION DELAY [RSR (QR) IN V1/V2]Electronically Signed On 01-09-2022 8:27:19 CDT by [facility]robert YaoWashington [facility] W/AUTO [id number] 23:52:00 Test Item Value Reference Range Interpretation [...] = MX#) 0.8 k/mm3 0.1-0.8 N LIVER [id number] 20:04:00 Test Item Value Reference Range Interpretation Comments TOTAL PROTEIN (test code 6.7 GM/DL 5.0-8.0 N Per formed by = PROT) 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 [facility] ALBUMIN (test code = 3.4 [...] 67 UNITS/L 25-125 N TAWNY) BASIC METABOLIC [id number] 19:54:00 Test Item Value Reference Range Interpretation [...] POCGLU) 81 MG/DL - CT ABD PELVIS W/[id number] 00:00:00 [facility] JO[facility] : 1970 Sex: M Name: HOANG JOSEPH FSED : 1970 Age/S: 51 / M [address] [facility] Unit #: [id number] Loc: [place] [address] Phys: Raffaele Levi MD Acct: [id number] Dis Date: Status: PRE ER PHONE #: Exam Date: 09/23/20211999 FAX #: Reason: RUQ PAIN, VOMITING EXAMS: CPT CODE: [id number] CT ABD PELVIS W/CONT 48862 PROCEDURE INFORMATION: Exam: CT Abdomen And Pelvis [...] : 1970 Age/S: 51 / M [address] [facility] Unit #: [id number] Loc: [place] [address] Phys: Raffaele Levi MD Acct: [id number] Dis Date: Status: PRE ER PHONE #: Exam Date: 09/23/20211999 FAX #: Reason: RUQ PAIN, VOMITING EXAMS: CPT CODE: [id number] CT ABD PELVIS W/CONT 77819 <Continued> abdominal small bowel loops may relate [...] (2049) PAGE 2 Signed ReportCOMP. METABOLIC PANEL ([id number])2021-09-14 03:57:44 Test Item Value Reference Range Interpretation Comments NA (test code = 132 mmol/L 135-145 L 5716324044) K (test code = 4.1 mmol/L 3.5-5.0 7091542306) CL (test code = 101 mmol/L 98-108 2882627899) CO2 TOTAL (test code = 23 mmol/L 23-31 1605492563) AGAP (test code = 2-16 9277404410) BUN (test code = 23 mg/dL 7-23 0425165204) GLUCOSE (test code = 97 mg/dL 70-110 4294424692) CREATININE (test code = 1.48 mg/dL 0.60-1.25 H 9225495094) TOTAL BILI (test code = 0.3 mg/dL 0.1-1.7 0869447259) CALCIUM (test code = 9.0 mg/dL 8.6-10.6 1726455994) T PROTEIN (test code = 6.2 g/dL 6.3-8.2 L 3235564903) ALBUMIN (test code = 3.7 g/dL 3.5-5.0 5692784786) ALK PHOS (test code = 82 U/L 34-122 3376113188) ALTv (test code = 21 U/L 5-50 1742-6) AST(SGOT) (test code = 20 U/L 13-40 9205159514) eGFR (test code = mL/min/1.73m2 4935776281) GILBERTO (test code = GILBERTO) Association of [...] tests). Lab Interpretation Abnormal (test code = 28042-8) [facility] WITH [id number] 03:52:42 Test Item Value Reference Range Interpretation [...] RDW-SD (test code = 47.2 fL 38.5-51.6 13951-7) RDW-CV (test code = 14.0 % 12.1-15.4 788-0) PLT (test code = See_Comment H [Automated 777-3) message] The sy stem which generated this result transmitted reference range : 150 - 328 10*3/ ?L. The reference r meredith was not used to interpret this result as normal/abnormal . MPV (test code = 9.2 fL 9.8-13.0 L 84413-1) NRBC/100 WBC (test See_Comment [Automat ed code = 6275898517) message] The system which generated this result transmitted reference range : 0.0 - 10.0 /100 WBCs. The refer ence range was not u sed to interpret th is result as normal/abnormal . NRBC x10^3 (test code <0.01 See_Comment [Auto mated = 9396563594) message] The s ystem which generated this result transmitted reference range : 10*3/?L. The reference range was not used to interpret this result as normal/abnormal . GRAN MAT (NEUT) % 61.3 % (test code = 770-8) IMM GRAN % (test code 0.20 % = 1573088727) LYMPH % (test code = 23.1 % 736-9) MONO % (test code = 13.7 % 5905-5) EOS % (test code = 1.5 % 713-8) BASO % (test code = 0.2 % 706-2) GRAN MAT x10^3(ANC) 2.78 10*3/uL 1.99-6.95 (test code = 7259232861) IMM GRAN x10^3 (test <0.03 0.00-0.06 code = 4638066146) LYMPH x10^3 (test code 1.05 10*3/uL 1.09-3.23 L = 731-0) MONO x10^3 (test code 0.62 10*3/uL 0.36-1.02 = 742-7) EOS x10^3 (test code = 0.07 10*3/uL 0.06-0.53 711-2) BASO x10^3 (test code <0.03 0.01-0.09 = 704-7) Lab Interpretation Abnormal (test code = 90626-4) [facility] [id number] 13:36:34 Test Item Value Reference Interpretation Comments Range TROPONIN I (test 0.001 ng/mL See_Comment [Automated code = 0934271986) message] The system which generated this result [...] biotin. Lab Interpretation Normal (test code = 55087-5) [facility]-TERMINAL [id number] 13:36:34 Test Item Value Reference Range Interpretation Comments NT-proBNP (test code 79 pg/mL See_Comment [Autom ated = 7970179085) message] The system which generated this result transmitted reference range : <=125. The reference range was not used to interpret this result as normal/abnormal . GILBERTO (test code = GILBERTO) Biotin has been reported to cause a negative bias, interpret results relative to patient's use of biotin. Lab Interpretation Normal (test code = 54866-4) [facility]BAS[facility] METABOLIC PANEL (NA, K, CL, CO2, GLUCOSE, BUN, CREATININE, CA)2021-09-12 13:24:32 Test Item Value Reference Range Interpretation Comments NA (test code = 134 mmol/L 135-145 L 9105753072) K (test code = 4.3 mmol/L 3.5-5.0 0271486489) CL (test code = 102 mmol/L 98-108 0003980453) CO2 TOTAL (test code = 23 mmol/L 23-31 8630626470) AGAP (test code = 2-16 7265637898) BUN (test code = 22 mg/dL 7-23 6632048879) GLUCOSE (test code = 89 mg/dL 70-110 1442004430) CREATININE (test code = 1.69 mg/dL 0.60-1.25 H 6916672629) CALCIUM (test code = 9.0 mg/dL 8.6-10.6 4229520106) eGFR (test code = mL/min/1.73m2 5889810040) GILBERTO (test code = GILBERTO) Association of [...] tests). Lab Interpretation Abnormal (test code = 63751-8) [facility] WITH [id number] 13:09:28 Test Item Value Reference Range Interpretation Comments WBC (test code = See_Comment [Automated 1863-2) message] The sy stem which generated this result transmitted reference range : 4.20 - 10.70 10*3/?L. The reference range was not used to interpret this result as normal/abnormal . RBC (test code = See_Comment L [Automated 991-0) message] The sy stem which generated this [...] RDW-SD (test code = 45.3 fL 38.5-51.6 48743-2) RDW-CV (test code = 13.9 % 12.1-15.4 788-0) PLT (test code = See_Comment H [Automated 777-3) message] The sy stem which generated this result transmitted reference range : 150 - 328 10*3/ ?L. The reference r meredith was not used to interpret this result as normal/abnormal . MPV (test code = 9.0 fL 9.8-13.0 L 36758-0) NRBC/100 WBC (test See_Comment [Automat ed code = 6283027612) message] The system which generated this result transmitted reference range : 0.0 - 10.0 /100 WBCs. The refer ence range was not u sed to interpret th is result as normal/abnormal . NRBC x10^3 (test code <0.01 See_Comment [Auto mated = 2600550754) message] The s ystem which generated this result transmitted reference range : 10*3/?L. The reference range was not used to interpret this result as normal/abnormal . GRAN MAT (NEUT) % 69.7 % (test code = 770-8) IMM GRAN % (test code 0.40 % = 4380908479) LYMPH % (test code = 16.9 % 736-9) MONO % (test code = 11.9 % 5905-5) EOS % (test code = 0.7 % 713-8) BASO % (test code = 0.4 % 706-2) GRAN MAT x10^3(ANC) 3.88 10*3/uL 1.99-6.95 (test code = 9293218906) IMM GRAN x10^3 (test <0.03 0.00-0.06 code = 4181405747) LYMPH x10^3 (test code 0.94 10*3/uL 1.09-3.23 L = 731-0) MONO x10^3 (test code 0.66 10*3/uL 0.36-1.02 = 742-7) EOS x10^3 (test code = 0.04 10*3/uL 0.06-0.53 L 711-2) BASO x10^3 (test code <0.03 0.01-0.09 = 704-7) Lab Interpretation Abnormal (test code = 65190-5) [facility] WITH [id number] 05:55:28 Test Item Value Reference Range Interpretation [...] RDW-SD (test code = 45.4 fL 38.5-51.6 74666-0) RDW-CV (test code = 13.8 % 12.1-15.4 788-0) PLT (test code = See_Comment [Automated 777-3) message] The sy stem which generated this result transmitted reference range : 150 - 328 10*3/ ?L. The reference r meredith was not used to interpret this result as normal/abnormal . MPV (test code = 9.2 fL 9.8-13.0 L 97143-7) NRBC/100 WBC (test See_Comment [Automat ed code = 8840529024) message] The system which generated this result transmitted reference range : 0.0 - 10.0 /100 WBCs. The refer ence range was not u sed to interpret th is result as normal/abnormal . NRBC x10^3 (test code <0.01 See_Comment [Auto mated = 2249427228) message] The s ystem which generated this result transmitted reference range : 10*3/?L. The reference range was not used to interpret this result as normal/abnormal . GRAN MAT (NEUT) % 60.6 % (test code = 770-8) IMM GRAN % (test code 0.20 % = 8020038918) LYMPH % (test code = 25.5 % 736-9) MONO % (test code = 10.5 % 5905-5) EOS % (test code = 2.8 % 713-8) BASO % (test code = 0.4 % 706-2) GRAN MAT x10^3(ANC) 3.23 10*3/uL 1.99-6.95 (test code = 5722386105) IMM GRAN x10^3 (test <0.03 0.00-0.06 code = 5330705858) LYMPH x10^3 (test code 1.36 10*3/uL 1.09-3.23 = 731-0) MONO x10^3 (test code 0.56 10*3/uL 0.36-1.02 = 742-7) EOS x10^3 (test code = 0.15 10*3/uL 0.06-0.53 711-2) BASO x10^3 (test code <0.03 0.01-0.09 = 704-7) Lab Interpretation Abnormal (test code = 32861-6) [facility]LIP[facility]2022-01-17 05:48:47 Test Item Value Reference Range Interpretation Comments LIPASE (test code = 7785670530) 116 U/L 0-220 Lab Interpretation (test code = Normal 66016-4) [facility] CampusCOMP. METABOLIC PANEL ([id number])2021-09-09 05:48:46 Test Item Value Reference Range Interpretation Comments NA (test code = 137 mmol/L 135-145 8081496055) K (test code = 4.0 mmol/L 3.5-5.0 7688346782) CL (test code = 108 mmol/L 98-108 3486116172) CO2 TOTAL (test code = 22 mmol/L 23-31 L 8036383097) AGAP (test code = 2-16 5910731472) BUN (test code = 23 mg/dL 7-23 5093768790) GLUCOSE (test code = 89 mg/dL 70-110 1577272811) CREATININE (test code = 1.28 mg/dL 0.60-1.25 H 8074391615) TOTAL BILI (test code = 0.4 mg/dL 0.1-1.3 0410506109) CALCIUM (test code = 8.9 mg/dL 8.6-10.6 5473243859) T PROTEIN (test code = 6.0 g/dL 6.3-8.2 L 3056069614) ALBUMIN (test code = 3.5 g/dL 3.5-5.0 0781642290) ALK PHOS (test code = 67 U/L 34-122 7798335666) ALTv (test code = 18 U/L 5-50 1742-6) AST(SGOT) (test code = 22 U/L 13-40 9489573458) eGFR (test code = mL/min/1.73m2 0401026477) GILBERTO (test code = GILBERTO) Association of [...] tests). Lab Interpretation Abnormal (test code = 25456-0) [facility]. METABOLIC PANEL (79288)2021-09-08 02:29:45 Test Item Value Reference Range Interpretation Comments NA (test code = 138 mmol/L 135-145 0448266890) K (test code = 4.3 mmol/L 3.5-5.0 7524453676) CL (test code = 106 mmol/L 98-108 4601954677) CO2 TOTAL (test code = 27 mmol/L 23-31 5109998604) AGAP (test code = 2-16 6482116127) BUN (test code = 22 mg/dL 7-23 8420516478) GLUCOSE (test code = 90 mg/dL 70-110 2319922843) CREATININE (test code = 1.36 mg/dL 0.60-1.25 H 4518030733) TOTAL BILI (test code = 0.4 mg/dL 0.1-1.8 1505528855) CALCIUM (test code = 9.2 mg/dL 8.6-10.6 3778587645) T PROTEIN (test code = 6.5 g/dL 6.3-8.2 9565949479) ALBUMIN (test code = 3.8 g/dL 3.5-5.0 8898706467) ALK PHOS (test code = 73 U/L 34-122 4794706008) ALTv (test code = 19 U/L 5-50 1742-6) AST(SGOT) (test code = 24 U/L 13-40 7515112370) eGFR (test code = mL/min/1.73m2 9062199125) GILBERTO (test code = GILBERTO) Association of [...] tests). Lab Interpretation Abnormal (test code = 00212-5) [facility] 02:29:45 Test Item Value Reference Range Interpretation Comments LIPASE (test code = 8960149831) 75 U/L 0-220 Lab Interpretation (test code = Normal 31898-9) [facility] CampusCB WITH [id number] 02:15:21 Test Item Value Reference Range Interpretation [...] RDW-SD (test code = 45.9 fL 38.5-51.6 30867-3) RDW-CV (test code = 13.6 % 12.1-15.4 788-0) PLT (test code = See_Comment [Automated 777-3) message] The sy stem which generated this result transmitted reference range : 150 - 328 10*3/ ?L. The reference r meredith was not used to interpret this result as normal/abnormal . MPV (test code = 9.4 fL 9.8-13.0 L 24451-0) NRBC/100 WBC (test See_Comment [Automat ed code = 6215541610) message] The system which generated this result transmitted reference range : 0.0 - 10.0 /100 WBCs. The refer ence range was not u sed to interpret th is result as normal/abnormal . NRBC x10^3 (test code <0.01 See_Comment [Auto mated = 8724674183) message] The s ystem which generated this result transmitted reference range : 10*3/?L. The reference range was not used to interpret this result as normal/abnormal . GRAN MAT (NEUT) % 66.0 % (test code = 770-8) IMM GRAN % (test code 0.50 % = 0478975944) LYMPH % (test code = 20.0 % 736-9) MONO % (test code = 9.8 % 5905-5) EOS % (test code = 3.5 % 713-8) BASO % (test code = 0.2 % 706-2) GRAN MAT x10^3(ANC) 3.77 10*3/uL 1.99-6.95 (test code = 2268066805) IMM GRAN x10^3 (test 0.03 10*3/uL 0.00-0.06 code = 6890513496) LYMPH x10^3 (test code 1.14 10*3/uL 1.09-3.23 = 731-0) MONO x10^3 (test code 0.56 10*3/uL 0.36-1.02 = 742-7) EOS x10^3 (test code = 0.20 10*3/uL 0.06-0.53 711-2) BASO x10^3 (test code <0.03 0.01-0.09 = 704-7) Lab Interpretation Abnormal (test code = 53762-1) [facility] CampusLactic Acid Whole [id number] 02:10:44 Test Item Value Reference Range Interpretation Comments LACTIC ACID (test code = 1.35 mmol/L 0.50-2.20 [id number]) Lab Interpretation (test code = Normal 88258-4) [facility] [id number] 15:31:19 Test Item Value Reference Range Interpretation Comments Case Report (test code Surgical Pathology ? ? = [id number]) ?Case: [id number] ? Authorizing Provider: ?Bia Pedro MD ?Collected: ? 09/03/2021 0801 ?Ordering Location: ? ? [facility] OR ? Received: ?09/03/2021 0842 ? Department ? Pathologist: ? Shaneka Douglas MD ? Specimen: ? ?ILEUM, Ileostomy ( staple ?end proximal ) ? Final Diagnosis (test o3tzrKJpKNIjp8clXXJonM code = 2682130298) FuZzEwMzNcZnRuYmpcdWMx IHtccnRmMVxlcGljOTYwMV zdkvVhHYRpgHSsU8Uhhymc BYiyFF0wER3meNxllUSngY TbCWRnEsWtb9hsb043oNLo d9qwXVMAfhuutTv4sEqpD8 1bn9G4NxftT79rmYZwNPW9 RNYkQWQwiWEwXJMeKCS0RY LzpJYnX9dzHMYxAF2jgfag SLtgHGalIVYgrWY1DQPgnH TyI3NeXMKsDYwcXSSdljz0 WaRbUi6bmVBumGaxIEehXU JkXHBsYWluXGZzMjBccGFy IEEuIElMRVVNLCBJTEVPU1 SXFTl8EJLjooHeCYVcFY1a QkVOSUdOIElMRUFMIFRJU1 WJLTBKCFANNUAWN1TUKB7B E22YBCcpJBFQR3mWZrSrNA 8BGBZPHxkHS6LUQUZEUOQA RUxTLCBccGFyICAgICAgIC ECU86FQCOTTN2AIBgYWScs SAjCQ0GEJ27MSAPcuzgjEB JcZnMyMiBTcmkgQmhhcmF0 dThoQ3M9rNKhVGMAUnGPAI KtuuzvGBI1x1blzQJeCYVf kHNaZpQnIPHrLGKgo8ugJA VmbGFuZzEwMzNcZnRuYmpc gHNhVLMjUkMjb1dtc599rR Ugb8ygQUHzRlJ5yLHqECHu rKdrtzv9dVfoMiUfHBMmv0 lzcyBcZmNoYXJzZXQwIEFy iYWdW257UMCfQBbuz2hgy7 TiIKCfjCEel8D4HDOBHArl AkPgP354o3zka5rjabZmwH Q4NVZeYGS1NWepsvIswaP9 SHyfmJBrZuX0HRaobxPeYM rssoUpnmBwArh3UJIkR809 ILO5rGnuf3auIXL0KKWiXG IsTuslSb9jwGHaT463BKZz ZZQNLGSuwEs1UXRxwuRnxj MhtOQXr729I642m2eiVRJl bxQvaCbNgysno4wrT046IR BhcGVydzEyMjQwXHBhcGVy fEP0RIYkVQ9xioihNVhnQC efXLVnamC6OBFnkEGsI0If KWRhEP7pfbkdXDV0OXxzBN VhYYN6KnWfGOBoz8Muveq7 OpWlru2hqs40GEP5r1WpfV pjNSD9IDP5QaIaLm9dzNXm EFZtAS1eEmUocMPcKIJchf 60oJxhMAgcekXpuY0uYoKo TTNrqZKhQFFjMA5idDKsFE MkvX6kldtgRPLcSeVozhcp EIVwbPuihrGhEz5oyHgaZQ G3VVkqQ6lmpZ0rFaH5ENbf F0ksdJ2fGHd9BCngvLQ2TA UvwR2pTF0euoxop7hfIGbf UDezHNGlagN4ohW4WCCkcB ZqF7BptV5rUHYsVN6yycdn t5cgUZA5QYudGDEtYCW0Zt WiZUKdy8Diwne3GaPuu9Jk iYTxWSdaB74sf259TTCiii TsC3tkdJIqfqbynPKmvmce QBikyaF4WDAeTRGcSXemBI YxXGZzMjBcbGFuZzEwMzNc aGljaFxmMVxkYmNoXGYxXG gyR7yyKqPiM8BoWEIqYvYz bQLaQGqbeWW2JYLsGBQfd2 8hqZd0IIJxzdzmg3BvHBNe tNRekYOcxS8diuArj4azBO SvUFUtPXDvF2FiJZV7sCZj GHItiNYolVV5ZS7fuqZmNM 1hZGUgYnkgcmVzaWRlbnRz JSBcUMfix6hcMF5fHPLqhI qqaE3otYG3FJKeq0cxqNQe fAJcc8esk8YrwoDuHOikCN LaBJcfUQYaOGQrGU5sKHNw iMXokrYib6K1FyurwTAmtr qbJswurlZ8ZIaedutjUFZd TRtgI1quXzBvZEDdyEmxBt izb2OpMHFhQYMyOaborLTi fX0= Clinical Information 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] 9665707113) Gross Description (test m1agzBMuYNRmzRXCUGKoWc code = 6005414042) qjyhSrORIblISjY9Eilvay ZDrnAS1wFU6vzKvpsDFqjE CqKA3DUMMjWaPiFSIxpWQm wpSmOiKdFZXmfNZvbUW5ZF FuOX0ploybRAozPYygXIGh osH0ZRUerKObZ3RaUVJaZZ 7csobwWEI0TNdllY7nmpKX BnccFo2auMVhpPtbYvDrMq NoYXJzZXQwXGZuaWwgQXJp QTv5gV7VKwmkDCO2NJAROc toHTTcKX4Qk4fkKDLkqKOb GNS3DSyfkNNfXKNlKRMiBG u3JQQvNYxmdNTrYR1tuSlm TjehfEosf1KkwJReTFpvYF AeXGYkWWigYNFpRL4LHkQn AChMPDAmTHGpZzH0ZLg1LG DOIqOjWxItOBf0Syr2CmFc NHj6MQd7LItTJnLvNMY2Xl CrTcX3BGB5ZWLnVMvizDXs IFxcZiBBcmlhbCBcXGZzID DfYIdaOqufRRazY25etMgz sX1bWeMcTNTQCiLAPECZZC 2sgCQnHG8OUNAuZWtvXOLe rIMNZZC4NP4mUUQSTfwqnL DeWDCruBdqBPpkyO5aLB6D HLg9skEyRLZbTyJaK2MfJ7 fqTK4oTADnchIjOXTjwDPp ZCBmcmVzaCBhbmQgbGFiZW qqKXD1cUFfKLKmZCYgBLBk KB91Y5XtprZyRHucPHzmtm OpAiTcEXGmwDK9zAjroHll y2Y1w179AHZmcCCjwBAfYG 3bAULtf6abpPEbIjGilmKs E55uw8sqqMNrv6AdTAT4YD 2pmJsyxmAeYKdqKI63GZ8y AYKwQPvxMNLlp4BwAOd8Fq IvR50klJ3glZNjE2VvXXA1 IDQuMiBjbSBpbiBkaWFtZX Khncscg2e1sHFkTTP5u57p IZtqMkrkkUUkOzTgD59iUM xdgySwRPacySmhZIG7hPki HTLxgMQuMtG9ZD0lKaDzl2 2di6bsyzYtnaZyIMXsbAIa kHWrLMQcw9LjiYjwotBpVV IupY9pIWOoJPRfdINndV2b biBpcyBvcGVuIHRvIHJldm ThsQX8UO5agYetvzRwuu2n m3m9LPKkzxVjEXEwJZHhSR UuxNObv3QtJZLNBTKcOFTa acIgvFy4XRSoJYC5fU7xwn QqqdJjm0DkjGg9rJBsLHnp ZXGhFBZffs02G6aiDNAyQI BhciANClxwYXIgDQpBMTog vMLxlHctSClmyPUiR4ewZP TjGPKrWRMekxVliIx4VBZx tEXaKX2EQFW6SYA6q73yWC PeWTCcHBQuceLdqOi7WHws DFGsRSrJIibzGn02UIyxo6 DvgQfhviVslwLfJP62UWKn syRqjPMpWK7USOCvqmZANr A6wJzzJHj8IBG7STdtORE2 rE8sf1xph3QdHvEFj7Hht5 BlwkKyj2R9KXUekUsnoG0n DE6rqjmtLKVbSGW6i5VuRI GNNBcjxWdwsR4mLVKmE59y f3YOx5CpCMRfEZhos4hndX qjr0RpjCEbYEysUEGrpIUh VOxahI1sUnZnm2dlcQi8VC meebU5VJVdnp4BIucknZ1q ZuVht1admYf6YNAVSdfhtk G2v4bebFldz9MmeFLuCU7Y Cn0= Disclaimer (test code = r7qwwAFgYDFwu2qpSBWdhV [id number]) FuZzEwMzNcZnRuYmpcdWMx YNpxvhEdAWzip7XkV6YzWq AwMFxhbnNpXGRlZmxhbmcx ZWOeFUG4fwEuBXZxWXoaQF WfTUfiGg4fcQKcsRncYcLk FKCfc0wcoiKIPEduGkYaZ2 81BXRxZUhnx1ldf6RqWSPl bJYhl6Y4DGDLtomasLm3zH pyK11ao6I0DvnhE7ctPKQx NTNkL7DnYY5jFZYaDwz7OR H8RFQ0DRYcJZKmW6LeOA3e XEEtcHHaJIy6e9uzxHodAZ JfZAN1s5chMUjpadCuBJ4c jl3ilUp2d3wfweNcQPYmCE ZwtTZRSEVkH4PszZjfWe6v qXi7cAndLrzaVDR7Osh6FB 8gry82wyh5sKwbGSCwvfbg QuQ6QRroEETrbpkvKJl7CK szDXCuvZY2GQNwmTObX0Qi NTAlZN2vlqb5IWV2UKmhJH CsFmH4GYKxlZFhXHTrrPsb PGfpd755KOF3YaXbSL5zO7 Rlx9G2tN9riDCiPXSvzPKt CpLhYAVqkr1ruVDbMSsrv6 MiWXG8heM7cBJsxVCmTODk OY99Wqsdx8JcUtcaq1HbM6 5vbXT4HInkj3miQX6aEaT5 ltIxKXwpj6gcrS0iRqK2DL gkWE0aTS4kFIWcjT7teiww XHBnYnJkcmhlYWRccGdicm AeIc7gjIhiYKA2XAhhF5nq sH0yJaK7IWczC7yapE8sZB d2OKicfGJ8CPHuwP4pSP1k attew6buNReaZBwfFEQpxq M4pwT2LOTzdYLrD7DtcX1u BIYtVY9curoht6rvUHM7VN ldXEPtBBC6ZgNvPSPse7Va fvw8KvTzs9PyxSMiOIteT0 0cv206SSMxazYgO3hokOZd lrzjiCMremffJHwqyqQ6ZX OzzxUcs6PoJZHmFFZ5PSdy UPxthQLyIOWliQdqb6ngS0 RscGFyXHBsYWluXGYxXGZz MjBcbGFuZzEwMzNcaGljaF bbXPsqQqHaEIHsKGugJ0ls UyNfL9DiOHMmBtVdvMAbF7 ggVGhpcyByZXBvcnQgbWF5 OLksI8w5UOPmcsVovLk1co UjBqNuOKWzVXH9AIqbiWVt FHOur3WafimlzDVvOf3fdN PlEHFuwM9sNLPsYVHlSFsb GV2buIc0WKWXmXAsdIAqAq GCZTUsHO55ieUrPUFXttbu d2K8WEjzWYVfg7SlbKEiE3 luj4CcYAMqt36xKT8qd1B3 u4gsOVA9DK8uv0BgJMUwvC GveYWoGWCmn1Xjvspzw5Mr MYByjsFfi1CjCMJcbjNeaO NpYJVzklInbr7ixaPyLUUp AFVcX9KybllfvIdjzsDeVK Uiwu7sqzXgCRV9XTYLUOWh MGIct5DnoF7laRPLZJM6xD Mqdi0zpsQNbXVcLREgdz87 EPGbFK9lK3ncCUDoBXZtql ZwfIAnh0KyYRLnhYP9zTWg MI9SKzWAc36iECZlURSDoh ZoPULzrCkevTE5ojV7rA6w IChGREEpLlx+IFRoZSBGRE RqGL6otdEht8EehhXdrQnf YTCxrUHcq2FtyEQmm4MqwA lfz1StuMJlbEAgCD8nXWIe clxwYXIgVVRNQiBMYWJvcm B4u4IkFKLxVWVyHOL7xVwd gsm8MGHohC4kRPNqH4jinj arXAblKQObx5WmoD0neVUI vRTxx6EvyUBmaZZAkMClES 4mmhCmQGbJDXoEXQM8bzHo THAmn1NtWZqmY6vdG45poX lgmTk6eWD6ZFC6xQ9fArb+ IFxwYXJccGFyIEFwcHJvcH HxYZBkrIelzcPwH9BiznGy uF8atRXtssOrOC1vYJ0pC4 N5uWDvEVIpkcOfx4fkPXpk dmUgYmVlbiByZXZpZXdlZC Xeb5XaQQzoAMP4WGkohcOe bmNsdWRpbmcgSCZFLCBTcG NfqEMsJLV5FLxfcmOanlFe FS3eaV5etIkteG0poLTvnT U7mdeiMTOkLBJhkRypIZUm XI4owZBoVJKrhxMFtRpghM LsjQ1dA3EwJSMmJUSfrq3x OSLvwL4dFBltf6RnshkjMC DaLEFyPWBtczCdcj0xMEEa vWJEKU5AEXogaQOdm0Uvue PdC2wKSLA9WALhShStPfxq VSUafIAilNXzOUHydl86CI DbaV2bzOfiTFXdnI8rzP3n iKkeyT4yEyYcImIzLIufUU 0uRACyS2vggVOdJLEuXOEv N1ypHvTrsC8qfSdoQFawCr WiLqHsBPgyAQL1jG== Embedded Images (test code = 2685991559) [facility] - Peripheral [id number] 09:01:06 Test Item Value Reference Range Interpretation Comments Blood Culture-Aerobic No organisms No growth Previo us (test code = 15799-1) isolated prelim inary verified result was Culture In Progress on 08/31/2021 at 060 1 CSTPrevious preliminary verified result was No growth a t 24 hours on 09/01/2021 at 030 1 CSTPrevious preliminary verified result was No growth a t 48 hours on 09/02/2021 at 03 01 CSTPrevious preliminary verified result was No growth a t 72 hours on 09/03/2021 at 03 01 [employer] Blood No organisms No growth Previous Culture-Anaerobic isolated preliminar y (test code = 47758-1) verifi ed result was Culture In Progress on 08/31/2021 at 060 1 CSTPrevious preliminary verified result was No growth a t 24 hours on 09/01/2021 at 030 1 CSTPrevious preliminary verified result was No growth a t 48 hours on 09/02/2021 at 03 01 CSTPrevious preliminary verified result was No growth a t 72 hours on 09/03/2021 at 03 01 [employer] Lab Interpretation Normal (test code = 23494-3) [facility] (NA, K, CL, CO2, GLUCOSE, BUN, CREATININE, CA)2021-09-04 13:22:54 Test Item Value Reference Range Interpretation Comments NA (test code = 132 mmol/L 135-145 L 6725273819) K (test code = 4.3 mmol/L 3.5-5.0 3501703735) CL (test code = 104 mmol/L 98-108 0927756974) CO2 TOTAL (test code = 23 mmol/L 23-31 7300729417) AGAP (test code = 2-16 5734230786) BUN (test code = 15 mg/dL 7-23 0574728856) GLUCOSE (test code = 96 mg/dL 70-110 9713104852) CREATININE (test code = 1.42 mg/dL 0.60-1.25 H 9897901400) CALCIUM (test code = 8.7 mg/dL 8.6-10.6 6560897098) eGFR (test code = mL/min/1.73m2 5098888726) GILBERTO (test code = GILBERTO) Association of [...] tests). Lab Interpretation Abnormal (test code = 87721-5) [facility] METABOLIC PANEL (NA, K, CL, CO2, GLUCOSE, BUN, CREATININE, CA)2021-09-04 13:22:54 Test Item Value Reference Range Interpretation Comments NA (test code = 132 mmol/L 135-145 L 4255387007) K (test code = 4.3 mmol/L 3.5-5.0 9161559404) CL (test code = 104 mmol/L 98-108 0336086229) CO2 TOTAL (test code = 23 mmol/L 23-31 3158924190) AGAP (test code = 2-16 7096100623) BUN (test code = 15 mg/dL 7-23 5137281052) GLUCOSE (test code = 96 mg/dL 70-110 9677023117) CREATININE (test code = 1.42 mg/dL 0.60-1.25 H 1563563119) CALCIUM (test code = 8.7 mg/dL 8.6-10.6 0576631193) eGFR (test code = mL/min/1.73m2 1491471640) GILBERTO (test code = GILBERTO) Association of [...] tests). Lab Interpretation Abnormal (test code = 08921-9) [facility] CULTURE [id number] 17:16:36 Test Item Value Reference Range Interpretation Comments Blood Culture Coagulase negative Addition al Workup (test Staphylococcus work-up perfo rmed code = 600-7) only per reque st. Culture plate(s ) will be saved until this date : 09/08/21 Gram stain Isolated from aerobic (test code = bottle Gram positive 664-3) cocci in [facility] CULTURE [id number] 17:16:36 Test Item Value Reference Range Interpretation Comments Blood Culture Coagulase negative Addition al Workup (test Staphylococcus work-up perfo rmed code = 600-7) only per reque st. Culture plate(s ) will be saved until this date : 09/08/21 Gram stain Isolated from aerobic (test code = bottle Gram positive 664-3) cocci in [facility] Culture - Peripheral Vein # 17:16:26 Test Item Value Reference Range Interpretation Comments Blood Culture-Aerobic Culture positive. No growth AA P revious (test code = 20131-4) See Blood Culture p reliminary Workup for verified result additional was Culture In information. Progress on 08/31/2021 at 060 1 [employer] Blood No organisms No growth Previous Culture-Anaerobic isolated preliminar y (test code = 38757-6) verifi ed result was Culture In Progress on 09/01/2021 at 012 7 [employer] Lab Interpretation Abnormal (test code = 61508-5) [facility] Culture - Peripheral Vein # 17:16:26 Test Item Value Reference Range Interpretation Comments Blood Culture-Aerobic Culture positive. No growth AA P revious (test code = 36562-9) See Blood Culture p reliminary Workup for verified result additional was Culture In information. Progress on 08/31/2021 at 060 1 [employer] Blood No organisms No growth Previous Culture-Anaerobic isolated preliminar y (test code = 74639-6) victorianoifi ed result was Culture In Progress on 09/01/2021 at 012 7 [employer] Lab Interpretation Abnormal (test code = 78868-1) [facility] METABOLIC PANEL (NA, K, CL, CO2, GLUCOSE, BUN, CREATININE, CA)2021-09-03 12:16:04 Test Item Value Reference Range Interpretation Comments NA (test code = 130 mmol/L 135-145 L 3954872362) K (test code = 4.1 mmol/L 3.5-5.0 1388066836) CL (test code = 103 mmol/L 98-108 5664154657) CO2 TOTAL (test code = 21 mmol/L 23-31 L 7658449911) AGAP (test code = 2-16 8835628843) BUN (test code = 14 mg/dL 7-23 7706825822) GLUCOSE (test code = 90 mg/dL 70-110 9087295458) CREATININE (test code = 1.28 mg/dL 0.60-1.25 H 6621861558) CALCIUM (test code = 8.8 mg/dL 8.6-10.6 8901102789) eGFR (test code = mL/min/1.73m2 1876078113) GILBERTO (test code = GILBERTO) Association of [...] tests). Lab Interpretation Abnormal (test code = 37972-7) [facility] METABOLIC PANEL (NA, K, CL, CO2, GLUCOSE, BUN, CREATININE, CA)2021-09-03 12:16:04 Test Item Value Reference Range Interpretation Comments NA (test code = 130 mmol/L 135-145 L 5477969021) K (test code = 4.1 mmol/L 3.5-5.0 2874506143) CL (test code = 103 mmol/L 98-108 6469972442) CO2 TOTAL (test code = 21 mmol/L 23-31 L 6151834785) AGAP (test code = 2-16 3660807527) BUN (test code = 14 mg/dL 7-23 4588986581) GLUCOSE (test code = 90 mg/dL 70-110 9228018350) CREATININE (test code = 1.28 mg/dL 0.60-1.25 H 7836674057) CALCIUM (test code = 8.8 mg/dL 8.6-10.6 4230889605) eGFR (test code = mL/min/1.73m2 3167586258) GILBERTO (test code = GILBERTO) Association of [...] tests). Lab Interpretation Abnormal (test code = 90003-8) [facility] WITHOUT [id number] 11:53:39 Test Item Value Reference Range Interpretation Comments WBC (test code = 6690-2) See_Comment [A utomated message] The system [employer] generated this result transmit dain reference range : 4.20 - 10.70 10*3/?L. The reference range was not used to interpret this result as normal/abnormal . RBC (test code = 789-8) See_Comment L [Au tomated message] The system [employer] generated this result transmit dain reference range [...] 777-3) See_Comment [Au tomated message] The system [employer] generated this result transmit dain reference range : 150 - 328 10*3/?L. The reference range was not used to interpret this result as normal/abnormal . MPV (test code = 10.1 fL 9.8-13.0 03614-8) RDW-CV (test code = 13.5 % 12.1-15.4 788-0) RDW-SD (test code = 44.6 fL 38.5-51.6 06528-9) NRBC x10^3 (test code = <0.01 See_Comment [Au tomated message] 3366308376) The system [employer] generated this result transmit dain reference range : 10*3/?L. The reference range was not used to interpret this result as normal/abnormal . NRBC/100 WBC (test code See_Comment [Au tomated message] = 9848461173) The system [employer] generated this result transmit dian reference range : 0.0 - 10.0 /100 WBC s. The reference r meredith was not used to interpret this result as normal/abnormal . IPF % (test code = 1199951766) Lab Interpretation (test Abnormal code = 14137-6) [facility] WITHOUT [id number] 11:53:39 Test Item Value Reference Range Interpretation Comments WBC (test code = 6690-2) See_Comment [A utomated message] The system [employer] generated this result transmit dain reference range : 4.20 - 10.70 10*3/?L. The reference range was not used to interpret this result as normal/abnormal . RBC (test code = 789-8) See_Comment L [Au tomated message] The system [employer] generated this result transmit dain reference range [...] 777-3) See_Comment [Au tomated message] The system [employer] generated this result transmit dain reference range : 150 - 328 10*3/?L. The reference range was not used to interpret this result as normal/abnormal . MPV (test code = 10.1 fL 9.8-13.0 13219-3) RDW-CV (test code = 13.5 % 12.1-15.4 788-0) RDW-SD (test code = 44.6 fL 38.5-51.6 29056-9) NRBC x10^3 (test code = <0.01 See_Comment [Au tomated message] 9731051821) The system [employer] generated this result transmit dain reference range : 10*3/?L. The reference range was not used to interpret this result as normal/abnormal . NRBC/100 WBC (test code See_Comment [Au tomated message] = 1620190127) The system [employer] generated this result transmit dain reference range : 0.0 - 10.0 /100 WBC s. The reference r meredith was not used to interpret this result as normal/abnormal . IPF % (test code = 2002108170) Lab Interpretation (test Abnormal code = 24139-0) [facility] (NA, K, CL, CO2, GLUCOSE, BUN, CREATININE, CA)2021-09-02 12:06:01 Test Item Value Reference Range Interpretation Comments NA (test code = 132 mmol/L 135-145 L 0178823144) K (test code = 4.4 mmol/L 3.5-5.0 5890899464) CL (test code = 106 mmol/L 98-108 9939248684) CO2 TOTAL (test code = 22 mmol/L 23-31 L 2918695433) AGAP (test code = 2-16 6810175387) BUN (test code = 16 mg/dL 7-23 9704961996) GLUCOSE (test code = 83 mg/dL 70-110 4609381413) CREATININE (test code = 1.33 mg/dL 0.60-1.25 H 5327646371) CALCIUM (test code = 8.8 mg/dL 8.6-10.6 0254785432) eGFR (test code = mL/min/1.73m2 2036373793) GILBERTO (test code = GILBERTO) Association of [...] tests). Lab Interpretation Abnormal (test code = 00221-1) [facility] METABOLIC PANEL (NA, K, CL, CO2, GLUCOSE, BUN, CREATININE, CA)2021-09-02 12:06:01 Test Item Value Reference Range Interpretation Comments NA (test code = 132 mmol/L 135-145 L 6430082437) K (test code = 4.4 mmol/L 3.5-5.0 2619925667) CL (test code = 106 mmol/L 98-108 4605072431) CO2 TOTAL (test code = 22 mmol/L 23-31 L 7924596619) AGAP (test code = 2-16 5628758692) BUN (test code = 16 mg/dL 7-23 2672393856) GLUCOSE (test code = 83 mg/dL 70-110 7149906501) CREATININE (test code = 1.33 mg/dL 0.60-1.25 H 2087255728) CALCIUM (test code = 8.8 mg/dL 8.6-10.6 2647095596) eGFR (test code = mL/min/1.73m2 2685318804) GLIBERTO (test code = GILBERTO) Association of Glomerular [...] tests). Lab Interpretation Abnormal (test code = 65552-9) [facility] METABOLIC PANEL (NA, K, CL, CO2, GLUCOSE, BUN, CREATININE, CA)2021-09-01 21:55:22 Test Item Value Reference Range Interpretation Comments NA (test code = 130 mmol/L 135-145 L 1528296289) K (test code = 4.2 mmol/L 3.5-5.0 6810562401) CL (test code = 103 mmol/L 98-108 3069640751) CO2 TOTAL (test code = 20 mmol/L 23-31 L 4253747715) AGAP (test code = 2-16 3167479962) BUN (test code = 20 mg/dL 7-23 3021431274) GLUCOSE (test code = 106 mg/dL 70-110 4972533447) CREATININE (test code = 1.51 mg/dL 0.60-1.25 H 2805785330) CALCIUM (test code = 8.5 mg/dL 8.6-10.6 L 3048083291) eGFR (test code = mL/min/1.73m2 1598993479) GILBERTO (test code = GILBERTO) Association of [...] tests). Lab Interpretation Abnormal (test code = 34625-1) [facility] METABOLIC PANEL (NA, K, CL, CO2, GLUCOSE, BUN, CREATININE, CA)2021-09-01 21:55:22 Test Item Value Reference Range Interpretation Comments NA (test code = 130 mmol/L 135-145 L 7518346554) K (test code = 4.2 mmol/L 3.5-5.0 5468888564) CL (test code = 103 mmol/L 98-108 3863574272) CO2 TOTAL (test code = 20 mmol/L 23-31 L 0364896307) AGAP (test code = 2-16 3020286644) BUN (test code = 20 mg/dL 7-23 7254811010) GLUCOSE (test code = 106 mg/dL 70-110 4960914707) CREATININE (test code = 1.51 mg/dL 0.60-1.25 H 2105808982) CALCIUM (test code = 8.5 mg/dL 8.6-10.6 L 6136246536) eGFR (test code = mL/min/1.73m2 5818724966) GILBERTO (test code = GILBERTO) Association of [...] tests). Lab Interpretation Abnormal (test code = 88143-7) [facility] POSITIVE BLOOD PATHOGENS DNA [id number] 10:31:32 Test Item Value Reference Range Interpretation Comments Coagulase Negative Positive Negative, See A Staphylococcus (test Comment/Narrative code = 36135-2) GILBERTO (test code = GILBERTO) Coagulase negative [...] contact the Antimicrobial Stewardship Program with questions.Pager: ?[phone] Testing included eleven identification and three resistance marker targets. Lab Interpretation Abnormal (test code = 42798-7) [facility] POSITIVE BLOOD PATHOGENS DNA [id number] 10:31:32 Test Item Value Reference Range Interpretation Comments Coagulase Negative Positive Negative, See A Staphylococcus (test Comment/Narrative code = 53357-7) GILBERTO (test code = GILBERTO) Coagulase negative [...] contact the Antimicrobial Stewardship Program with questions.Pager: ?[phone] Testing included eleven identification and three resistance marker targets. Lab Interpretation Abnormal (test code = 08691-4) [facility] METABOLIC PANEL (NA, K, CL, CO2, GLUCOSE, BUN, CREATININE, CA)2021-09-01 08:38:47 Test Item Value Reference Range Interpretation Comments NA (test code = 130 mmol/L 135-145 L 0081108212) K (test code = 4.0 mmol/L 3.5-5.0 4253592432) CL (test code = 105 mmol/L 98-108 3985153680) CO2 TOTAL (test code = 20 mmol/L 23-31 L 5182666976) AGAP (test code = 2-16 2945753439) BUN (test code = 21 mg/dL 7-23 6840909103) GLUCOSE (test code = 88 mg/dL 70-110 6424369399) CREATININE (test code = 1.31 mg/dL 0.60-1.25 H 1137862919) CALCIUM (test code = 8.5 mg/dL 8.6-10.6 L 9918306748) eGFR (test code = mL/min/1.73m2 5563606035) GILBERTO (test code = GILBERTO) Association of [...] tests). Lab Interpretation Abnormal (test code = 94571-0) [facility] METABOLIC PANEL (NA, K, CL, CO2, GLUCOSE, BUN, CREATININE, CA)2021-09-01 08:38:47 Test Item Value Reference Range Interpretation Comments NA (test code = 130 mmol/L 135-145 L 1132039645) K (test code = 4.0 mmol/L 3.5-5.0 2435892939) CL (test code = 105 mmol/L 98-108 9754361917) CO2 TOTAL (test code = 20 mmol/L 23-31 L 1730378884) AGAP (test code = 2-16 0005281648) BUN (test code = 21 mg/dL 7-23 0894677593) GLUCOSE (test code = 88 mg/dL 70-110 8780290289) CREATININE (test code = 1.31 mg/dL 0.60-1.25 H 3071249650) CALCIUM (test code = 8.5 mg/dL 8.6-10.6 L 4640125456) eGFR (test code = mL/min/1.73m2 8639212756) GILBERTO (test code = GILBERTO) Association of [...] tests). Lab Interpretation Abnormal (test code = 29560-5) [facility] WITH [id number] 08:13:43 Test Item Value Reference Range Interpretation Comments WBC (test code = See_Comment [Automated 9090-2) message] The sy stem which generated this [...] RDW-SD (test code = 43.0 fL 38.5-51.6 72183-8) RDW-CV (test code = 13.7 % 12.1-15.4 788-0) PLT (test code = See_Comment [Automated 777-3) message] The sy stem which generated this result transmitted reference range : 150 - 328 10*3/ ?L. The reference r meredith was not used to interpret this result as normal/abnormal . MPV (test code = 9.9 fL 9.8-13.0 73423-2) NRBC/100 WBC (test See_Comment [Automat ed code = 0066722303) message] The system which generated this result transmitted reference range : 0.0 - 10.0 /100 WBCs. The refer ence range was not u sed to interpret th is result as normal/abnormal . NRBC x10^3 (test code <0.01 See_Comment [Auto mated = 5377877505) message] The s ystem which generated this result transmitted reference range : 10*3/?L. The reference range was not used to interpret this result as normal/abnormal . GRAN MAT (NEUT) % 48.2 % (test code = 770-8) IMM GRAN % (test code 0.40 % = 9368743931) LYMPH % (test code = 39.5 % 736-9) MONO % (test code = 9.0 % 5905-5) EOS % (test code = 2.3 % 713-8) BASO % (test code = 0.6 % 706-2) GRAN MAT x10^3(ANC) 2.35 10*3/uL 1.99-6.95 (test code = 6643294329) IMM GRAN x10^3 (test <0.03 0.00-0.06 code = 1873934998) LYMPH x10^3 (test code 1.93 10*3/uL 1.09-3.23 = 731-0) MONO x10^3 (test code 0.44 10*3/uL 0.36-1.02 = 742-7) EOS x10^3 (test code = 0.11 10*3/uL 0.06-0.53 711-2) BASO x10^3 (test code 0.03 10*3/uL 0.01-0.09 = 704-7) Lab Interpretation Abnormal (test code = 21758-2) [facility] WITH [id number] 08:13:43 Test Item Value Reference Range Interpretation [...] RDW-SD (test code = 43.0 fL 38.5-51.6 81464-7) RDW-CV (test code = 13.7 % 12.1-15.4 788-0) PLT (test code = See_Comment [Automated 777-3) message] The sy stem which generated this result transmitted reference range : 150 - 328 10*3/ ?L. The reference r meredith was not used to interpret this result as normal/abnormal . MPV (test code = 9.9 fL 9.8-13.0 54320-4) NRBC/100 WBC (test See_Comment [Automat ed code = 4219971390) message] The system which generated this result transmitted reference range : 0.0 - 10.0 /100 WBCs. The refer ence range was not u sed to interpret th is result as normal/abnormal . NRBC x10^3 (test code <0.01 See_Comment [Auto mated = 5793164730) message] The s ystem which generated this result transmitted reference range : 10*3/?L. The reference range was not used to interpret this result as normal/abnormal . GRAN MAT (NEUT) % 48.2 % (test code = 770-8) IMM GRAN % (test code 0.40 % = 4812654830) LYMPH % (test code = 39.5 % 736-9) MONO % (test code = 9.0 % 5905-5) EOS % (test code = 2.3 % 713-8) BASO % (test code = 0.6 % 706-2) GRAN MAT x10^3(ANC) 2.35 10*3/uL 1.99-6.95 (test code = 8292905314) IMM GRAN x10^3 (test <0.03 0.00-0.06 code = 8898054359) LYMPH x10^3 (test code 1.93 10*3/uL 1.09-3.23 = 731-0) MONO x10^3 (test code 0.44 10*3/uL 0.36-1.02 = 742-7) EOS x10^3 (test code = 0.11 10*3/uL 0.06-0.53 711-2) BASO x10^3 (test code 0.03 10*3/uL 0.01-0.09 = 704-7) Lab Interpretation Abnormal (test code = 60678-8) [facility] [id number] 06:37:20 Test Item Value Reference Range Interpretation Comments MAGNESIUM (test code = 3975364267) 1.9 mg/dL 1.7-2.4 Lab Interpretation (test code = Normal 97230-0) [facility] [id number] 06:37:20 Test Item Value Reference Range Interpretation Comments MAGNESIUM (test code = 0789556000) 1.9 mg/dL 1.7-2.4 Lab Interpretation (test code = Normal 09007-0) [facility] METABOLIC PANEL (NA, K, CL, CO2, GLUCOSE, BUN, CREATININE, CA)2021-09-01 02:46:47 Test Item Value Reference Range Interpretation Comments NA (test code = 132 mmol/L 135-145 L 7443963360) K (test code = 4.0 mmol/L 3.5-5.0 4592272744) CL (test code = 102 mmol/L 98-108 1883722323) CO2 TOTAL (test code = 21 mmol/L 23-31 L 9325805842) AGAP (test code = 2-16 7991910339) BUN (test code = 24 mg/dL 7-23 H 9493992401) GLUCOSE (test code = 95 mg/dL 70-110 8963873072) CREATININE (test code = 1.40 mg/dL 0.60-1.25 H 5945073249) CALCIUM (test code = 8.6 mg/dL 8.6-10.6 5891093043) eGFR (test code = mL/min/1.73m2 0747680170) GILBERTO (test code = GILBERTO) Association of [...] tests). Lab Interpretation Abnormal (test code = 05345-5) [facility] METABOLIC PANEL (NA, K, CL, CO2, GLUCOSE, BUN, CREATININE, CA)2021-09-01 02:46:47 Test Item Value Reference Range Interpretation Comments NA (test code = 132 mmol/L 135-145 L 7599661287) K (test code = 4.0 mmol/L 3.5-5.0 9520802541) CL (test code = 102 mmol/L 98-108 6617381684) CO2 TOTAL (test code = 21 mmol/L 23-31 L 8476493079) AGAP (test code = 2-16 9273737287) BUN (test code = 24 mg/dL 7-23 H 3634073785) GLUCOSE (test code = 95 mg/dL 70-110 3515935495) CREATININE (test code = 1.40 mg/dL 0.60-1.25 H 7877875015) CALCIUM (test code = 8.6 mg/dL 8.6-10.6 8510475784) eGFR (test code = mL/min/1.73m2 9784354808) GILBERTO (test code = GILBERTO) Association of [...] tests). Lab Interpretation Abnormal (test code = 97658-6) [facility] Acid Whole [id number] 12:49:48 Test Item Value Reference Range Interpretation Comments LACTIC ACID (test code = 2.02 mmol/L 0.50-2.20 QUE S 3714639302) Lab Interpretation (test code = Normal 10048-6) [facility] Acid Whole [id number] 12:49:48 Test Item Value Reference Range Interpretation Comments LACTIC ACID (test code = 2.02 mmol/L 0.50-2.20 QUE S 8482996792) Lab Interpretation (test code = Normal 29652-0) [facility] METABOLIC PANEL (NA, K, CL, CO2, GLUCOSE, BUN, CREATININE, CA)2021-08-31 12:29:06 Test Item Value Reference Range Interpretation Comments NA (test code = 129 mmol/L 135-145 L 0745208625) K (test code = 3.6 mmol/L 3.5-5.0 6750178141) CL (test code = 101 mmol/L 98-108 9975531322) CO2 TOTAL (test code = 18 mmol/L 23-31 L 5200765812) AGAP (test code = 2-16 6154033393) BUN (test code = 35 mg/dL 7-23 H 9395690107) GLUCOSE (test code = 97 mg/dL 70-110 9721159463) CREATININE (test code = 1.58 mg/dL 0.60-1.25 H 8483012435) CALCIUM (test code = 8.3 mg/dL 8.6-10.6 L 8470911128) eGFR (test code = mL/min/1.73m2 3413447724) GILBERTO (test code = GILBERTO) Association of [...] tests). Lab Interpretation Abnormal (test code = 44658-7) [facility] (NA, K, CL, CO2, GLUCOSE, BUN, CREATININE, CA)2021-08-31 12:29:06 Test Item Value Reference Range Interpretation Comments NA (test code = 129 mmol/L 135-145 L 4805674695) K (test code = 3.6 mmol/L 3.5-5.0 7620367891) CL (test code = 101 mmol/L 98-108 3779284370) CO2 TOTAL (test code = 18 mmol/L 23-31 L 3150201231) AGAP (test code = 2-16 9902523493) BUN (test code = 35 mg/dL 7-23 H 8425749421) GLUCOSE (test code = 97 mg/dL 70-110 0850148213) CREATININE (test code = 1.58 mg/dL 0.60-1.25 H 9193097281) CALCIUM (test code = 8.3 mg/dL 8.6-10.6 L 7049752843) eGFR (test code = mL/min/1.73m2 2191933937) GILBERTO (test code = GILBERTO) Association of [...] tests). Lab Interpretation Abnormal (test code = 61667-6) [facility] [id number] 07:42:44 Test Item Value Reference Range Interpretation Comments TSH (test code = See_Comment [Automated message] 0266706892) The system [employer] generated this result transmitted ref erence range: 0.45 - 4 .70 mIU/L. The refe rence range was not u sed to interpret this result as normal/abnor mal. Lab Interpretation (test Normal code = 39935-7) [facility] [id number] 07:42:44 Test Item Value Reference Range Interpretation Comments TSH (test code = See_Comment [Automated message] 4297266486) The system [employer] generated this result transmitted ref erence range: 0.45 - 4 .70 mIU/L. The refe rence range was not u sed to interpret this result as normal/abnor mal. Lab Interpretation (test Normal code = 04920-0) [facility] (NA, K, CL, CO2, GLUCOSE, BUN, CREATININE, CA)2021-08-31 07:40:43 Test Item Value Reference Range Interpretation Comments NA (test code = 129 mmol/L 135-145 L 8623094242) K (test code = 3.8 mmol/L 3.5-5.0 Slight 2558796569) hemolysis CL (test code = 102 mmol/L 98-108 9462905595) CO2 TOTAL (test code 18 mmol/L 23-31 L = 7405209266) AGAP (test code = 2-16 9991641296) BUN (test code = 46 mg/dL 7-23 H Slight 3775937793) hemolysis GLUCOSE (test code = 100 mg/dL 70-110 4268449602) CREATININE (test code 1.72 mg/dL 0.60-1.25 H = 2512183481) CALCIUM (test code = 8.5 mg/dL 8.6-10.6 L 2880387491) eGFR (test code = mL/min/1.73m2 5272124929) GILBERTO (test code = GILBERTO) Association of [...] tests). Lab Interpretation Abnormal (test code = 28840-2) [facility] METABOLIC PANEL (NA, K, CL, CO2, GLUCOSE, BUN, CREATININE, CA)2021-08-31 07:40:43 Test Item Value Reference Range Interpretation Comments NA (test code = 129 mmol/L 135-145 L 6548182509) K (test code = 3.8 mmol/L 3.5-5.0 Slight 8991581092) hemolysis CL (test code = 102 mmol/L 98-108 6890224351) CO2 TOTAL (test code 18 mmol/L 23-31 L = 9165318722) AGAP (test code = 2-16 6097483660) BUN (test code = 46 mg/dL 7-23 H Slight 3437989458) hemolysis GLUCOSE (test code = 100 mg/dL 70-110 3572389941) CREATININE (test code 1.72 mg/dL 0.60-1.25 H = 4376478840) CALCIUM (test code = 8.5 mg/dL 8.6-10.6 L 5771781464) eGFR (test code = mL/min/1.73m2 1820569388) GILBERTO (test code = GILBERTO) Association of [...] tests). Lab Interpretation Abnormal (test code = 42092-6) [facility] Whole [id number] 07:08:01 Test Item Value Reference Range Interpretation Comments LACTIC ACID (test code = 1.96 mmol/L 0.50-2.20 QUE S 8763270709) Lab Interpretation (test code = Normal 59219-4) [facility] [id number] 07:08:01 Test Item Value Reference Range Interpretation Comments LACTIC ACID (test code = 1.96 mmol/L 0.50-2.20 QUE S 4643109608) Lab Interpretation (test code = Normal 08141-5) [facility] CampusOSMOLALITY, SERUM OR [id number] 06:33:43 Test Item Value Reference Range Interpretation Comments OSMOLALITY (test code = See_Comment [Au tomated message] 8559208131) The system [employer] generated this result transmitted ref erence range: 278 - 30 5 mOsm/kg. The re ference range was not u sed to interpret this result as normal/abnor mal. Lab Interpretation (test Normal code = 53490-7) [facility]OSMOL[facility], SERUM OR [id number] 06:33:43 Test Item Value Reference Range Interpretation Comments OSMOLALITY (test code = See_Comment [Au tomated message] 4994073117) The system [employer] generated this result transmitted ref erence range: 278 - 30 5 mOsm/kg. The re ference range was not u sed to interpret this result as normal/abnor mal. Lab Interpretation (test Normal code = 05370-1) [facility] [id number] 04:28:44 Test Item Value Reference Interpretation Comments Range TROPONIN I (test 0.003 ng/mL See_Comment [Automated code = 6636758515) message] The system which generated this result [...] biotin. Lab Interpretation Normal (test code = 04573-9) [facility] [id number] 04:28:44 Test Item Value Reference Interpretation Comments Range TROPONIN I (test 0.003 ng/mL See_Comment [Automated code = 0823084188) message] The system which generated this result [...] biotin. Lab Interpretation Normal (test code = 68995-6) [facility] METABOLIC PANEL (NA, K, CL, CO2, GLUCOSE, BUN, CREATININE, CA)2021-08-31 04:07:42 Test Item Value Reference Range Interpretation Comments NA (test code = 125 mmol/L 135-145 L 1526328804) K (test code = 4.1 mmol/L 3.5-5.0 Slight 7543457154) hemolysis CL (test code = 100 mmol/L 98-108 2256693882) CO2 TOTAL (test code 17 mmol/L 23-31 L = 7021208942) AGAP (test code = 2-16 7278189730) BUN (test code = 52 mg/dL 7-23 H Slight 4687349588) hemolysis GLUCOSE (test code = 94 mg/dL 70-110 3763268582) CREATININE (test code 1.77 mg/dL 0.60-1.25 H = 3158837050) CALCIUM (test code = 8.2 mg/dL 8.6-10.6 L 6132813088) eGFR (test code = mL/min/1.73m2 1563943798) GILBERTO (test code = GILBERTO) Association of [...] tests). Lab Interpretation Abnormal (test code = 25149-6) [facility] METABOLIC PANEL (NA, K, CL, CO2, GLUCOSE, BUN, CREATININE, CA)2021-08-31 04:07:42 Test Item Value Reference Range Interpretation Comments NA (test code = 125 mmol/L 135-145 L 8049712276) K (test code = 4.1 mmol/L 3.5-5.0 Slight 6257475063) hemolysis CL (test code = 100 mmol/L 98-108 0718853928) CO2 TOTAL (test code 17 mmol/L 23-31 L = 4077575135) AGAP (test code = 2-16 3051708571) BUN (test code = 52 mg/dL 7-23 H Slight 8298992289) hemolysis GLUCOSE (test code = 94 mg/dL 70-110 0194205972) CREATININE (test code 1.77 mg/dL 0.60-1.25 H = 6876257443) CALCIUM (test code = 8.2 mg/dL 8.6-10.6 L 6734841118) eGFR (test code = mL/min/1.73m2 6824453212) GILBERTO (test code = GILBERTO) Association of [...] tests). Lab Interpretation Abnormal (test code = 49235-5) [facility] [id number] 00:22:59 Test Item Value Reference Interpretation Comments Range TROPONIN I (test 0.003 ng/mL See_Comment [Automated code = 6467484457) message] The system which generated this result [...] biotin. Lab Interpretation Normal (test code = 15802-9) [facility] CampusN-TERMINAL [id number] 00:22:59 Test Item Value Reference Range Interpretation Comments NT-proBNP (test code 55 pg/mL See_Comment [Autom ated = 5835799533) message] The system which generated this result transmitted reference range : <=125. The reference range was not used to interpret this result as normal/abnormal . GILBERTO (test code = GILBERTO) Biotin has been reported to cause a negative bias, interpret results relative to patient's use of biotin. Lab Interpretation Normal (test code = 96899-0) [facility] [id number] 00:22:59 Test Item Value Reference Interpretation Comments Range TROPONIN I (test 0.003 ng/mL See_Comment [Automated code = 9231513135) message] The system which generated this result [...] biotin. Lab Interpretation Normal (test code = 72688-6) [facility] [id number] 00:22:59 Test Item Value Reference Range Interpretation Comments NT-proBNP (test code 55 pg/mL See_Comment [Autom ated = 3723610834) message] The system which generated this result transmitted reference range : <=125. The reference range was not used to interpret this result as normal/abnormal . GILBERTO (test code = GILBERTO) Biotin has been reported to cause a negative bias, interpret results relative to patient's use of biotin. Lab Interpretation Normal (test code = 35192-0) [facility]COMP[facility] METABOLIC PANEL ([id number])2021-08-31 00:07:17 Test Item Value Reference Range Interpretation Comments NA (test code = 126 mmol/L 135-145 L 8959316942) K (test code = 4.3 mmol/L 3.5-5.0 Slight 3680272186) hemolysis CL (test code = 96 mmol/L 98-108 L 7205439291) CO2 TOTAL (test code 18 mmol/L 23-31 L = 2786219259) AGAP (test code = 2-16 7818417822) BUN (test code = 58 mg/dL 7-23 H Slight 6017725894) hemolysis GLUCOSE (test code = 108 mg/dL 70-110 6475302233) CREATININE (test code 2.11 mg/dL 0.60-1.25 H = 2534678482) TOTAL BILI (test code 0.7 mg/dL 0.1-1.1 = 6510299518) CALCIUM (test code = 9.2 mg/dL 8.6-10.6 2327978500) T PROTEIN (test code 7.6 g/dL 6.3-8.2 = 2393505149) ALBUMIN (test code = 4.9 g/dL 3.5-5.0 0338389434) ALK PHOS (test code = 96 U/L 34-122 Slight 7380125790) hemolysis ALTv (test code = 27 U/L 5-50 1742-6) AST(SGOT) (test code 46 U/L 13-40 H Slight = 1574062270) hemolysis eGFR (test code = mL/min/1.73m2 7809563333) GILBERTO (test code = GILBERTO) Association of [...] tests). Lab Interpretation Abnormal (test code = 15677-8) [facility]. METABOLIC PANEL ([id number])2021-08-31 00:07:17 Test Item Value Reference Range Interpretation Comments NA (test code = 126 mmol/L 135-145 L 4738209868) K (test code = 4.3 mmol/L 3.5-5.0 Slight 3620218554) hemolysis CL (test code = 96 mmol/L 98-108 L 9506630102) CO2 TOTAL (test code 18 mmol/L 23-31 L = 5901494907) AGAP (test code = 2-16 5171748814) BUN (test code = 58 mg/dL 7-23 H Slight 1794038244) hemolysis GLUCOSE (test code = 108 mg/dL 70-110 8980644870) CREATININE (test code 2.11 mg/dL 0.60-1.25 H = 0181469023) TOTAL BILI (test code 0.7 mg/dL 0.1-1.1 = 5656801606) CALCIUM (test code = 9.2 mg/dL 8.6-10.6 2527114655) T PROTEIN (test code 7.6 g/dL 6.3-8.2 = 7840289971) ALBUMIN (test code = 4.9 g/dL 3.5-5.0 5171001886) ALK PHOS (test code = 96 U/L 34-122 Slight 3175455769) hemolysis ALTv (test code = 27 U/L 5-50 1742-6) AST(SGOT) (test code 46 U/L 13-40 H Slight = 8475984973) hemolysis eGFR (test code = mL/min/1.73m2 5137760901) GILBERTO (test code = GILBERTO) Association of [...] tests). Lab Interpretation Abnormal (test code = 34477-6) [facility] WITH [id number] 23:36:10 Test Item Value Reference Range Interpretation Comments WBC (test code = See_Comment [Automated 2312-2) message] The sy stem which generated this result transmitted reference range : 4.20 - 10.70 10*3/?L. The reference range was not used to interpret this result as normal/abnormal . RBC (test code = See_Comment [Automated 393-8) message] The sy stem which generated this [...] RDW-SD (test code = 41.7 fL 38.5-51.6 23315-6) RDW-CV (test code = 13.4 % 12.1-15.4 788-0) PLT (test code = See_Comment [Automated 107-3) message] The sy stem which generated this result transmitted reference range : 150 - 328 10*3/ ?L. The reference r meredith was not used to interpret this result as normal/abnormal . MPV (test code = 10.3 fL 9.8-13.0 82417-3) NRBC/100 WBC (test See_Comment [Automat ed code = 7004213031) message] The system which generated this result transmitted reference range : 0.0 - 10.0 /100 WBCs. The refer ence range was not u sed to interpret th is result as normal/abnormal . NRBC x10^3 (test code <0.01 See_Comment [Auto mated = 1228870938) message] The s ystem which generated this result transmitted reference range : 10*3/?L. The reference range was not used to interpret this result as normal/abnormal . GRAN MAT (NEUT) % 60.6 % (test code = 770-8) IMM GRAN % (test code 0.30 % = 9044993595) LYMPH % (test code = 29.1 % 736-9) MONO % (test code = 8.8 % 5905-5) EOS % (test code = 0.6 % 713-8) BASO % (test code = 0.6 % 706-2) GRAN MAT x10^3(ANC) 4.08 10*3/uL 1.99-6.95 (test code = 4744627481) IMM GRAN x10^3 (test <0.03 0.00-0.06 code = 1721053284) LYMPH x10^3 (test code 1.96 10*3/uL 1.09-3.23 = 731-0) MONO x10^3 (test code 0.59 10*3/uL 0.36-1.02 = 742-7) EOS x10^3 (test code = 0.04 10*3/uL 0.06-0.53 L 711-2) BASO x10^3 (test code 0.04 10*3/uL 0.01-0.09 = 704-7) Lab Interpretation Abnormal (test code = 45263-1) [facility] WITH [id number] 23:36:10 Test Item Value Reference Range Interpretation [...] RDW-SD (test code = 41.7 fL 38.5-51.6 05604-5) RDW-CV (test code = 13.4 % 12.1-15.4 788-0) PLT (test code = See_Comment [Automated 777-3) message] The sy stem which generated this result transmitted reference range : 150 - 328 10*3/ ?L. The reference r meredith was not used to interpret this result as normal/abnormal . MPV (test code = 10.3 fL 9.8-13.0 82187-1) NRBC/100 WBC (test See_Comment [Automat ed code = 4667162318) message] The system which generated this result transmitted reference range : 0.0 - 10.0 /100 WBCs. The refer ence range was not u sed to interpret th is result as normal/abnormal . NRBC x10^3 (test code <0.01 See_Comment [Auto mated = 5371082453) message] The s ystem which generated this result transmitted reference range : 10*3/?L. The reference range was not used to interpret this result as normal/abnormal . GRAN MAT (NEUT) % 60.6 % (test code = 770-8) IMM GRAN % (test code 0.30 % = 5687720279) LYMPH % (test code = 29.1 % 736-9) MONO % (test code = 8.8 % 5905-5) EOS % (test code = 0.6 % 713-8) BASO % (test code = 0.6 % 706-2) GRAN MAT x10^3(ANC) 4.08 10*3/uL 1.99-6.95 (test code = 4171028763) IMM GRAN x10^3 (test <0.03 0.00-0.06 code = 4954866346) LYMPH x10^3 (test code 1.96 10*3/uL 1.09-3.23 = 731-0) MONO x10^3 (test code 0.59 10*3/uL 0.36-1.02 = 742-7) EOS x10^3 (test code = 0.04 10*3/uL 0.06-0.53 L 711-2) BASO x10^3 (test code 0.04 10*3/uL 0.01-0.09 = 704-7) Lab Interpretation Abnormal (test code = 18721-4) [facility] CampusPOLA RAPID STREP SCREEN FOR GROUP [id number] 00:24:00 Test Item Value Reference Range Interpretation Comments POCT GP A STREP (test code = Negative Negative - Negative 05858-1) Lab Interpretation (test code = Normal 24708-7) [facility]PREAL[facility]UMIN2021-12-13 11:38:43 Test Item Value Reference Range Interpretation Comments PALB (test code = 51391-0) 25.2 mg/dL 18.0-45.0 Lab Interpretation (test code = Normal 81045-4) [facility]BAS[facility]OLIC PAN[facility] (NA, K, CL, CO2, GLUCOSE, BUN, CREATININE, CA)2021-08-05 11:30:59 Test Item Value Reference Range Interpretation Comments NA (test code = 140 mmol/L 135-145 4099192377) K (test code = 4.2 mmol/L 3.5-5.0 6166453100) CL (test code = 110 mmol/L 98-108 H 9407387507) CO2 TOTAL (test code = 27 mmol/L 23-31 0314903118) AGAP (test code = 2-16 1760463362) BUN (test code = 9 mg/dL 7-23 4330268378) GLUCOSE (test code = 86 mg/dL 70-110 1538560776) CREATININE (test code = 1.51 mg/dL 0.60-1.25 H 1136340262) CALCIUM (test code = 8.5 mg/dL 8.6-10.6 L 2630010061) eGFR (test code = mL/min/1.73m2 8837845859) GILBERTO (test code = GILBERTO) Association of [...] tests). Lab Interpretation Abnormal (test code = 49104-6) [facility]MAG[facility]2021-12-13 11:30:59 Test Item Value Reference Range Interpretation Comments MAGNESIUM (test code = 5483976581) 2.0 mg/dL 1.7-2.4 Lab Interpretation (test code = Normal 46630-6) [facility] CampusPHOSPHORUS2021-12-13 11:30:59 Test Item Value Reference Range Interpretation Comments PHOSPHORUS (test code = 5953640938) 5.1 mg/dL 2.5-5.0 H Lab Interpretation (test code = Abnormal 09962-4) [facility]ALBUMIN2021-12-13 11:30:59 Test Item Value Reference Range Interpretation Comments ALBUMIN (test code = 6314799421) 3.1 g/dL 3.5-5.0 L Lab Interpretation (test code = Abnormal 41395-0) [facility] WITH [id number] 11:05:58 Test Item Value Reference Range Interpretation [...] RDW-SD (test code = 47.5 fL 38.5-51.6 86393-0) RDW-CV (test code = 14.0 % 12.1-15.4 788-0) PLT (test code = See_Comment [Automated 777-3) message] The sy stem which generated this result transmitted reference range : 150 - 328 10*3/ ?L. The reference r meredith was not used to interpret this result as normal/abnormal . MPV (test code = 9.5 fL 9.8-13.0 L 51037-9) NRBC/100 WBC (test See_Comment [Automat ed code = 5000130066) message] The system which generated this result transmitted reference range : 0.0 - 10.0 /100 WBCs. The refer ence range was not u sed to interpret th is result as normal/abnormal . NRBC x10^3 (test code <0.01 See_Comment [Auto mated = 0097178997) message] The s ystem which generated this result transmitted reference range : 10*3/?L. The reference range was not used to interpret this result as normal/abnormal . GRAN MAT (NEUT) % 52.5 % (test code = 770-8) IMM GRAN % (test code 0.30 % = 5657961872) LYMPH % (test code = 31.1 % 736-9) MONO % (test code = 11.7 % 5905-5) EOS % (test code = 3.9 % 713-8) BASO % (test code = 0.5 % 706-2) GRAN MAT x10^3(ANC) 2.03 10*3/uL 1.99-6.95 (test code = 0790513203) IMM GRAN x10^3 (test <0.03 0.00-0.06 code = 0302864706) LYMPH x10^3 (test code 1.20 10*3/uL 1.09-3.23 = 731-0) MONO x10^3 (test code 0.45 10*3/uL 0.36-1.02 = 742-7) EOS x10^3 (test code = 0.15 10*3/uL 0.06-0.53 711-2) BASO x10^3 (test code <0.03 0.01-0.09 = 704-7) Lab Interpretation Abnormal (test code = 12985-7) [facility] WITH [id number] 12:30:17 Test Item Value Reference Range Interpretation [...] RDW-SD (test code = 49.2 fL 38.5-51.6 73121-8) RDW-CV (test code = 14.3 % 12.1-15.4 788-0) PLT (test code = See_Comment [Automated 777-3) message] The sy stem which generated this result transmitted reference range : 150 - 328 10*3/ ?L. The reference r meredith was not used to interpret this result as normal/abnormal . MPV (test code = 9.2 fL 9.8-13.0 L 22212-5) NRBC/100 WBC (test See_Comment [Automat ed code = 8632886533) message] The system which generated this result transmitted reference range : 0.0 - 10.0 /100 WBCs. The refer ence range was not u sed to interpret th is result as normal/abnormal . NRBC x10^3 (test code <0.01 See_Comment [Auto mated = 7892798298) message] The s ystem which generated this result transmitted reference range : 10*3/?L. The reference range was not used to interpret this result as normal/abnormal . GRAN MAT (NEUT) % 47.2 % (test code = 770-8) IMM GRAN % (test code 0.30 % = 3940288002) LYMPH % (test code = 36.0 % 736-9) MONO % (test code = 12.6 % 5905-5) EOS % (test code = 3.4 % 713-8) BASO % (test code = 0.5 % 706-2) GRAN MAT x10^3(ANC) 1.80 10*3/uL 1.99-6.95 L (test code = 8748064151) IMM GRAN x10^3 (test <0.03 0.00-0.06 code = 0513005085) LYMPH x10^3 (test code 1.37 10*3/uL 1.09-3.23 = 731-0) MONO x10^3 (test code 0.48 10*3/uL 0.36-1.02 = 742-7) EOS x10^3 (test code = 0.13 10*3/uL 0.06-0.53 711-2) BASO x10^3 (test code <0.03 0.01-0.09 = 704-7) Lab Interpretation Abnormal (test code = 42662-6) [facility] METABOLIC PANEL (NA, K, CL, CO2, GLUCOSE, BUN, CREATININE, CA)2021-08-04 12:17:48 Test Item Value Reference Range Interpretation Comments NA (test code = 139 mmol/L 135-145 3067123006) K (test code = 4.3 mmol/L 3.5-5.0 4945490308) CL (test code = 110 mmol/L 98-108 H 7522550976) CO2 TOTAL (test code = 26 mmol/L 23-31 6842873121) AGAP (test code = 2-16 5907425741) BUN (test code = 8 mg/dL 7-23 1714434611) GLUCOSE (test code = 87 mg/dL 70-110 0009473207) CREATININE (test code = 1.50 mg/dL 0.60-1.25 H 1492492381) CALCIUM (test code = 8.4 mg/dL 8.6-10.6 L 1479023580) eGFR (test code = mL/min/1.73m2 4332186256) GILBERTO (test code = GILBERTO) Association of [...] tests). Lab Interpretation Abnormal (test code = 60921-0) [facility]:48 Test Item Value Reference Range Interpretation Comments MAGNESIUM (test code = 2894162433) 1.9 mg/dL 1.7-2.4 Lab Interpretation (test code = Normal 85219-5) [facility]21[facility]12 12:17:48 Test Item Value Reference Range Interpretation Comments PHOSPHORUS (test code = 6100559884) 4.6 mg/dL 2.5-5.0 Lab Interpretation (test code = Normal 02506-6) [facility] WITH [id number] 11:23:38 Test Item Value Reference Range Interpretation Comments WBC (test code = See_Comment L [Automated 1190-2) message] The sy stem which [...] RDW-SD (test code = 47.8 fL 38.5-51.6 72533-3) RDW-CV (test code = 14.1 % 12.1-15.4 788-0) PLT (test code = See_Comment [Automated 777-3) message] The sy stem which generated this result transmitted reference range : 150 - 328 10*3/ ?L. The reference r meredith was not used to interpret this result as normal/abnormal . MPV (test code = 9.3 fL 9.8-13.0 L 08309-5) NRBC/100 WBC (test See_Comment [Automat ed code = [id number]) message] The system which generated this result transmitted reference range : 0.0 - 10.0 /100 WBCs. The refer ence range was not u sed to interpret th is result as normal/abnormal . NRBC x10^3 (test code <0.01 See_Comment [Auto mated = 6349719161) message] The s ystem which generated this result transmitted reference range : 10*3/?L. The reference range was not used to interpret this result as normal/abnormal . GRAN MAT (NEUT) % 49.3 % (test code = 770-8) IMM GRAN % (test code 0.30 % = 1737908500) LYMPH % (test code = 34.6 % 736-9) MONO % (test code = 12.0 % 5905-5) EOS % (test code = 3.3 % 713-8) BASO % (test code = 0.5 % 706-2) GRAN MAT x10^3(ANC) 1.97 10*3/uL 1.99-6.95 L (test code = 4954736000) IMM GRAN x10^3 (test <0.03 0.00-0.06 code = 9221957047) LYMPH x10^3 (test code 1.38 10*3/uL 1.09-3.23 = 731-0) MONO x10^3 (test code 0.48 10*3/uL 0.36-1.02 = 742-7) EOS x10^3 (test code = 0.13 10*3/uL 0.06-0.53 711-2) BASO x10^3 (test code <0.03 0.01-0.09 = 704-7) Lab Interpretation Abnormal (test code = 56990-5) [facility] METABOLIC PANEL (NA, K, CL, CO2, GLUCOSE, BUN, CREATININE, CA)2021-08-03 11:18:55 Test Item Value Reference Range Interpretation Comments NA (test code = 139 mmol/L 135-145 2040415154) K (test code = 4.1 mmol/L 3.5-5.0 4585572920) CL (test code = 110 mmol/L 98-108 H 1720248837) CO2 TOTAL (test code = 27 mmol/L 23-31 2812961247) AGAP (test code = 2-16 6445588505) BUN (test code = 8 mg/dL 7-23 9636630875) GLUCOSE (test code = 93 mg/dL 70-110 4341962449) CREATININE (test code = 1.39 mg/dL 0.60-1.25 H 9624357205) CALCIUM (test code = 8.1 mg/dL 8.6-10.6 L 6367761150) eGFR (test code = mL/min/1.73m2 1355036613) GILBERTO (test code = GILBERTO) Association of [...] tests). Lab Interpretation Abnormal (test code = 61646-6) [facility] 11:18:55 Test Item Value Reference Range Interpretation Comments MAGNESIUM (test code = 7531541189) 2.0 mg/dL 1.7-2.4 Lab Interpretation (test code = Normal 38920-5) [facility] 11:18:55 Test Item Value Reference Range Interpretation Comments PHOSPHORUS (test code = 2143294215) 3.8 mg/dL 2.5-5.0 Lab Interpretation (test code = Normal 10757-4) [facility] (NA, K, CL, CO2, GLUCOSE, BUN, CREATININE, CA)2021-08-02 14:06:51 Test Item Value Reference Range Interpretation Comments NA (test code = 137 mmol/L 135-145 2666648330) K (test code = 4.4 mmol/L 3.5-5.0 6586317712) CL (test code = 108 mmol/L 98-108 6843948810) CO2 TOTAL (test code = 24 mmol/L 23-31 1731695425) AGAP (test code = 2-16 3477811935) BUN (test code = 10 mg/dL 7-23 5590465880) GLUCOSE (test code = 83 mg/dL 70-110 9067238613) CREATININE (test code = 1.48 mg/dL 0.60-1.25 H 2633810655) CALCIUM (test code = 8.4 mg/dL 8.6-10.6 L 6494610929) eGFR (test code = mL/min/1.73m2 4703870147) GILBERTO (test code = GILBERTO) Association of [...] tests). Lab Interpretation Abnormal (test code = 30473-1) [facility] 14:06:51 Test Item Value Reference Range Interpretation Comments MAGNESIUM (test code = 5756455055) 2.1 mg/dL 1.7-2.4 Lab Interpretation (test code = Normal 34737-2) [facility]21[facility]10 14:06:51 Test Item Value Reference Range Interpretation Comments PHOSPHORUS (test code = 2560953905) 4.6 mg/dL 2.5-5.0 Lab Interpretation (test code = Normal 66477-0) [facility] WITH [id number] 12:30:05 Test Item Value Reference Range Interpretation [...] RDW-SD (test code = 48.6 fL 38.5-51.6 89037-9) RDW-CV (test code = 14.3 % 12.1-15.4 788-0) PLT (test code = See_Comment [Automated 777-3) message] The sy stem which generated this result transmitted reference range : 150 - 328 10*3/ ?L. The reference r meredith was not used to interpret this result as normal/abnormal . MPV (test code = 10.0 fL 9.8-13.0 52702-5) NRBC/100 WBC (test See_Comment [Automat ed code = 2048594788) message] The system which generated this result transmitted reference range : 0.0 - 10.0 /100 WBCs. The refer ence range was not u sed to interpret th is result as normal/abnormal . NRBC x10^3 (test code <0.01 See_Comment [Auto mated = 7133155362) message] The s ystem which generated this result transmitted reference range : 10*3/?L. The reference range was not used to interpret this result as normal/abnormal . GRAN MAT (NEUT) % 51.9 % (test code = 770-8) IMM GRAN % (test code 0.60 % = 9708800454) LYMPH % (test code = 32.7 % 736-9) MONO % (test code = 11.3 % 5905-5) EOS % (test code = 3.2 % 713-8) BASO % (test code = 0.3 % 706-2) GRAN MAT x10^3(ANC) 1.80 10*3/uL 1.99-6.95 L (test code = 5170245681) IMM GRAN x10^3 (test <0.03 0.00-0.06 code = 9909811562) LYMPH x10^3 (test code 1.13 10*3/uL 1.09-3.23 = 731-0) MONO x10^3 (test code 0.39 10*3/uL 0.36-1.02 = 742-7) EOS x10^3 (test code = 0.11 10*3/uL 0.06-0.53 711-2) BASO x10^3 (test code <0.03 0.01-0.09 = 704-7) Lab Interpretation Abnormal (test code = 88174-7) [facility] WITH [id number] 10:44:18 Test Item Value Reference Range Interpretation [...] RDW-SD (test code = 48.0 fL 38.5-51.6 36871-3) RDW-CV (test code = 14.1 % 12.1-15.4 788-0) PLT (test code = See_Comment [Automated 777-3) message] The sy stem which generated this result transmitted reference range : 150 - 328 10*3/ ?L. The reference r meredith was not used to interpret this result as normal/abnormal . MPV (test code = 9.5 fL 9.8-13.0 L 96887-8) NRBC/100 WBC (test See_Comment [Automat ed code = 5798450349) message] The system which generated this result transmitted reference range : 0.0 - 10.0 /100 WBCs. The refer ence range was not u sed to interpret th is result as normal/abnormal . NRBC x10^3 (test code <0.01 See_Comment [Auto mated = 3355614271) message] The s ystem which generated this result transmitted reference range : 10*3/?L. The reference range was not used to interpret this result as normal/abnormal . GRAN MAT (NEUT) % 50.8 % (test code = 770-8) IMM GRAN % (test code 0.30 % = 9850146620) LYMPH % (test code = 34.6 % 736-9) MONO % (test code = 10.3 % 5905-5) EOS % (test code = 3.7 % 713-8) BASO % (test code = 0.3 % 706-2) GRAN MAT x10^3(ANC) 1.78 10*3/uL 1.99-6.95 L (test code = 2684913227) IMM GRAN x10^3 (test <0.03 0.00-0.06 code = 6926529738) LYMPH x10^3 (test code 1.21 10*3/uL 1.09-3.23 = 731-0) MONO x10^3 (test code 0.36 10*3/uL 0.36-1.02 = 742-7) EOS x10^3 (test code = 0.13 10*3/uL 0.06-0.53 711-2) BASO x10^3 (test code <0.03 0.01-0.09 = 704-7) Lab Interpretation Abnormal (test code = 79298-4) [facility] METABOLIC PANEL (NA, K, CL, CO2, GLUCOSE, BUN, CREATININE, CA)2021-08-01 10:25:17 Test Item Value Reference Range Interpretation Comments NA (test code = 138 mmol/L 135-145 5481817706) K (test code = 4.1 mmol/L 3.5-5.0 4541142786) CL (test code = 105 mmol/L 98-108 7066230223) CO2 TOTAL (test code = 28 mmol/L 23-31 4169323463) AGAP (test code = 2-16 5503141131) BUN (test code = 13 mg/dL 7-23 4718332952) GLUCOSE (test code = 86 mg/dL 70-110 2353813832) CREATININE (test code = 1.46 mg/dL 0.60-1.25 H 9992999582) CALCIUM (test code = 8.7 mg/dL 8.6-10.6 0154518021) eGFR (test code = mL/min/1.73m2 6755644724) GILBERTO (test code = GILBERTO) Association of [...] tests). Lab Interpretation Abnormal (test code = 58940-1) [facility]2021-[facility]-09 10:25:17 Test Item Value Reference Range Interpretation Comments MAGNESIUM (test code = 3913732044) 1.6 mg/dL 1.7-2.4 L Lab Interpretation (test code = Abnormal 94442-2) [facility]2021-[facility]-09 10:25:17 Test Item Value Reference Range Interpretation Comments PHOSPHORUS (test code = 7668755922) 4.1 mg/dL 2.5-5.0 Lab Interpretation (test code = Normal 53904-0) [facility]PRE[facility]2021-12-08 16:18:34 Test Item Value Reference Range Interpretation Comments PALB (test code = 67953-0) 24.3 mg/dL 18.0-45.0 Lab Interpretation (test code = Normal 43043-0) [facility] WITH [id number] 11:20:19 Test Item Value Reference Range Interpretation [...] RDW-SD (test code = 49.6 fL 38.5-51.6 94172-2) RDW-CV (test code = 14.6 % 12.1-15.4 788-0) PLT (test code = See_Comment [Automated 777-3) message] The sy stem which generated this result transmitted reference range : 150 - 328 10*3/ ?L. The reference r meredith was not used to interpret this result as normal/abnormal . MPV (test code = 9.6 fL 9.8-13.0 L 89894-3) NRBC/100 WBC (test See_Comment [Automat ed code = 2682083124) message] The system which generated this result transmitted reference range : 0.0 - 10.0 /100 WBCs. The refer ence range was not u sed to interpret th is result as normal/abnormal . NRBC x10^3 (test code <0.01 See_Comment [Auto mated = 6587670682) message] The s ystem which generated this result transmitted reference range : 10*3/?L. The reference range was not used to interpret this result as normal/abnormal . GRAN MAT (NEUT) % 49.1 % (test code = 770-8) IMM GRAN % (test code 0.30 % = 1453789389) LYMPH % (test code = 36.0 % 736-9) MONO % (test code = 10.6 % 5905-5) EOS % (test code = 3.4 % 713-8) BASO % (test code = 0.6 % 706-2) GRAN MAT x10^3(ANC) 1.76 10*3/uL 1.99-6.95 L (test code = 9710245346) IMM GRAN x10^3 (test <0.03 0.00-0.06 code = 5671531124) LYMPH x10^3 (test code 1.29 10*3/uL 1.09-3.23 = 731-0) MONO x10^3 (test code 0.38 10*3/uL 0.36-1.02 = 742-7) EOS x10^3 (test code = 0.12 10*3/uL 0.06-0.53 711-2) BASO x10^3 (test code <0.03 0.01-0.09 = 704-7) Lab Interpretation Abnormal (test code = 27491-1) [facility] METABOLIC PANEL (NA, K, CL, CO2, GLUCOSE, BUN, CREATININE, CA)2021-07-31 11:11:17 Test Item Value Reference Range Interpretation Comments NA (test code = 135 mmol/L 135-145 8064299753) K (test code = 3.8 mmol/L 3.5-5.0 1423504962) CL (test code = 108 mmol/L 98-108 4101699300) CO2 TOTAL (test code = 24 mmol/L 23-31 6939894441) AGAP (test code = 2-16 2071697761) BUN (test code = 13 mg/dL 7-23 1625736131) GLUCOSE (test code = 88 mg/dL 70-110 3355161464) CREATININE (test code = 1.32 mg/dL 0.60-1.25 H 9330276176) CALCIUM (test code = 8.4 mg/dL 8.6-10.6 L 0451621453) eGFR (test code = mL/min/1.73m2 0750198163) GILBERTO (test code = GILBERTO) Association of [...] tests). Lab Interpretation Abnormal (test code = 04056-2) [facility]2021-[facility] 11:11:17 Test Item Value Reference Range Interpretation Comments MAGNESIUM (test code = 5171798278) 1.8 mg/dL 1.7-2.4 Lab Interpretation (test code = Normal 69627-8) [facility]2021-[facility]-08 11:11:17 Test Item Value Reference Range Interpretation Comments PHOSPHORUS (test code = 1176496824) 4.0 mg/dL 2.5-5.0 Lab Interpretation (test code = Normal 65087-4) [facility] MET[facility]OLIC PAN[facility] (36014)2021-07-30 03:46:32 Test Item Value Reference Range Interpretation Comments NA (test code = 132 mmol/L 135-145 L 6687418113) K (test code = 4.4 mmol/L 3.5-5.0 7333867458) CL (test code = 102 mmol/L 98-108 9364596512) CO2 TOTAL (test code = 24 mmol/L 23-31 7354534927) AGAP (test code = 2-16 3307750144) BUN (test code = 21 mg/dL 7-23 6579243525) GLUCOSE (test code = 95 mg/dL 70-110 6224633046) CREATININE (test code = 1.76 mg/dL 0.60-1.25 H 4356921546) TOTAL BILI (test code = 0.7 mg/dL 0.1-1.0 6849321661) CALCIUM (test code = 8.8 mg/dL 8.6-10.6 9319674467) T PROTEIN (test code = 6.0 g/dL 6.3-8.2 L 5851642248) ALBUMIN (test code = 3.8 g/dL 3.5-5.0 2349038874) ALK PHOS (test code = 67 U/L 34-122 2030748375) ALTv (test code = 47 U/L 5-50 1742-6) AST(SGOT) (test code = 39 U/L 13-40 7117139675) eGFR (test code = mL/min/1.73m2 3951357687) GILBERTO (test code = GILBERTO) Association of [...] tests). Lab Interpretation Abnormal (test code = 63794-6) [facility]LIP[facility]2021-[facility] 03:19:26 Test Item Value Reference Range Interpretation Comments LIPASE (test code = 5757215453) 58 U/L 0-220 Lab Interpretation (test code = Normal 05452-3) [facility] WITH [id number] 03:07:20 Test Item Value Reference Range Interpretation [...] RDW-SD (test code = 47.4 fL 38.5-51.6 24697-0) RDW-CV (test code = 14.2 % 12.1-15.4 788-0) PLT (test code = See_Comment [Automated 777-3) message] The sy stem which generated this result transmitted reference range : 150 - 328 10*3/ ?L. The reference r meredith was not used to interpret this result as normal/abnormal . MPV (test code = 9.9 fL 9.8-13.0 20556-8) NRBC/100 WBC (test See_Comment [Automat ed code = 8407821016) message] The system which generated this result transmitted reference range : 0.0 - 10.0 /100 WBCs. The refer ence range was not u sed to interpret th is result as normal/abnormal . NRBC x10^3 (test code <0.01 See_Comment [Auto mated = 7100339398) message] The s ystem which generated this result transmitted reference range : 10*3/?L. The reference range was not used to interpret this result as normal/abnormal . GRAN MAT (NEUT) % 61.1 % (test code = 770-8) IMM GRAN % (test code 0.20 % = 2848124385) LYMPH % (test code = 24.4 % 736-9) MONO % (test code = 11.8 % 5905-5) EOS % (test code = 2.2 % 713-8) BASO % (test code = 0.3 % 706-2) GRAN MAT x10^3(ANC) 3.98 10*3/uL 1.99-6.95 (test code = 7619306452) IMM GRAN x10^3 (test <0.03 0.00-0.06 code = 9008586109) LYMPH x10^3 (test code 1.59 10*3/uL 1.09-3.23 = 731-0) MONO x10^3 (test code 0.77 10*3/uL 0.36-1.02 = 742-7) EOS x10^3 (test code = 0.14 10*3/uL 0.06-0.53 711-2) BASO x10^3 (test code <0.03 0.01-0.09 = 704-7) Lab Interpretation Abnormal (test code = 96305-2) [facility] CampusLactic Acid Whole [id number] 03:00:47 Test Item Value Reference Range Interpretation Comments LACTIC ACID (test code = 1.45 mmol/L 0.50-2.20 QUE S 4016414922) Lab Interpretation (test code = Normal 06063-8) [facility] CampusCOMPREHENSIVE METABOLIC [id number] 11:51:00 Test Item Value Reference Range Interpretation [...] Units/L 50.0-136.0 N code = ALKP) PROTHROMBIN [id number] 11:41:00 Test Item Value Reference Range Interpretation Comments PROTHROMBIN TIME 10.9 SECONDS 9.9-12.8 N PATIENT (test code = PTP) INTERNATIONAL NORMAL 0.9 0.89-1.14 N THE INR IS TO BE USED RATIO (test code = ONLY FOR MONITORING INR) ORAL ANTICOAGULANTTH ERAPY. THE FOLLOWING A RE SUGGESTED RANGE S FROM [facility] CHEST PHYSICIANS:ROOPA CATION [...] D ANTIBODIES 2.5 - 3.5 CBC W/AUTO [id number] 11:36:00 Test Item Value Reference Range Interpretation [...] NA (test code = 137 mmol/L 135-145 4112275925) K (test code = 4.2 mmol/L 3.5-5.0 6647264986) CL (test code = 109 mmol/L 98-108 H 3419295613) CO2 TOTAL (test code = 25 mmol/L 23-31 3921217516) AGAP (test code = 2-16 0502314272) BUN (test code = 11 mg/dL 7-23 5028954581) GLUCOSE (test code = 83 mg/dL 70-110 3880205294) CREATININE (test code = 1.40 mg/dL 0.60-1.25 H 4202100719) CALCIUM (test code = 8.6 mg/dL 8.6-10.6 3664599899) eGFR (test code = mL/min/1.73m2 9202880822) GILBERTO (test code = GILBERTO) Association of [...] tests). Lab Interpretation Abnormal (test code = 39780-8) [facility]2021-[facility] 13:15:26 Test Item Value Reference Range Interpretation Comments MAGNESIUM (test code = 6666933413) 1.6 mg/dL 1.7-2.4 L Lab Interpretation (test code = Abnormal 71984-6) [facility]2021[facility] 13:15:26 Test Item Value Reference Range Interpretation Comments PHOSPHORUS (test code = 7254743673) 3.5 mg/dL 2.5-5.0 Lab Interpretation (test code = Normal 92054-4) [facility] WITH [id number] 12:50:41 Test Item Value Reference Range Interpretation Comments WBC (test code = See_Comment [Automated 6690-2) message] The sy stem which generated this result transmitted reference range : 4.20 - 10.70 10*3/?L. The reference range was not used to interpret this result as normal/abnormal . RBC (test code = See_Comment L [Automated 079-8) message] The sy stem which generated this [...] RDW-SD (test code = 46.7 fL 38.5-51.6 73838-6) RDW-CV (test code = 14.3 % 12.1-15.4 788-0) PLT (test code = See_Comment [Automated 777-3) message] The sy stem which generated this result transmitted reference range : 150 - 328 10*3/ ?L. The reference r meredith was not used to interpret this result as normal/abnormal . MPV (test code = 9.6 fL 9.8-13.0 L 45106-9) NRBC/100 WBC (test See_Comment [Automat ed code = 7227673502) message] The system which generated this result transmitted reference range : 0.0 - 10.0 /100 WBCs. The refer ence range was not u sed to interpret th is result as normal/abnormal . NRBC x10^3 (test code <0.01 See_Comment [Auto mated = 9074355629) message] The s ystem which generated this result transmitted reference range : 10*3/?L. The reference range was not used to interpret this result as normal/abnormal . GRAN MAT (NEUT) % 52.7 % (test code = 770-8) IMM GRAN % (test code 0.40 % = 6721626674) LYMPH % (test code = 33.7 % 736-9) MONO % (test code = 10.4 % 5905-5) EOS % (test code = 2.4 % 713-8) BASO % (test code = 0.4 % 706-2) GRAN MAT x10^3(ANC) 2.65 10*3/uL 1.99-6.95 (test code = 2976587246) IMM GRAN x10^3 (test <0.03 0.00-0.06 code = 0927697619) LYMPH x10^3 (test code 1.69 10*3/uL 1.09-3.23 = 731-0) MONO x10^3 (test code 0.52 10*3/uL 0.36-1.02 = 742-7) EOS x10^3 (test code = 0.12 10*3/uL 0.06-0.53 711-2) BASO x10^3 (test code <0.03 0.01-0.09 = 704-7) Lab Interpretation Abnormal (test code = 14296-5) [facility]2021-[facility]-02 12:35:59 Test Item Value Reference Range Interpretation Comments MAGNESIUM (test code = 2097699262) 1.6 mg/dL 1.7-2.4 L Lab Interpretation (test code = Abnormal 77492-2) [facility]2021[facility] 12:35:59 Test Item Value Reference Range Interpretation Comments PHOSPHORUS (test code = 3037588459) 4.0 mg/dL 2.5-5.0 Lab Interpretation (test code = Normal 94533-2) [facility] (NA, K, CL, CO2, GLUCOSE, BUN, CREATININE, CA)2021-07-25 12:09:12 Test Item Value Reference Range Interpretation Comments NA (test code = 139 mmol/L 135-145 5057929158) K (test code = 4.1 mmol/L 3.5-5.0 8980184924) CL (test code = 111 mmol/L 98-108 H 9158636615) CO2 TOTAL (test code = 25 mmol/L 23-31 4982001876) AGAP (test code = 2-16 7020926326) BUN (test code = 13 mg/dL 7-23 3695592237) GLUCOSE (test code = 86 mg/dL 70-110 4430200635) CREATININE (test code = 1.43 mg/dL 0.60-1.25 H 8199200213) CALCIUM (test code = 8.4 mg/dL 8.6-10.6 L 8261249128) eGFR (test code = mL/min/1.73m2 1725735790) GILBERTO (test code = GILBERTO) Association of [...] tests). Lab Interpretation Abnormal (test code = 51710-0) [facility] WITH [id number] 11:44:33 Test Item Value Reference Range Interpretation [...] RDW-SD (test code = 48.9 fL 38.5-51.6 67133-6) RDW-CV (test code = 14.3 % 12.1-15.4 788-0) PLT (test code = See_Comment [Automated 777-3) message] The sy stem which generated this result transmitted reference range : 150 - 328 10*3/ ?L. The reference r meredith was not used to interpret this result as normal/abnormal . MPV (test code = 9.6 fL 9.8-13.0 L 45914-1) NRBC/100 WBC (test See_Comment [Automat ed code = 1567182341) message] The system which generated this result transmitted reference range : 0.0 - 10.0 /100 WBCs. The refer ence range was not u sed to interpret th is result as normal/abnormal . NRBC x10^3 (test code <0.01 See_Comment [Auto mated = 7228312331) message] The s ystem which generated this result transmitted reference range : 10*3/?L. The reference range was not used to interpret this result as normal/abnormal . GRAN MAT (NEUT) % 50.0 % (test code = 770-8) IMM GRAN % (test code 0.20 % = 0069450143) LYMPH % (test code = 36.7 % 736-9) MONO % (test code = 10.0 % 5905-5) EOS % (test code = 2.6 % 713-8) BASO % (test code = 0.5 % 706-2) GRAN MAT x10^3(ANC) 2.11 10*3/uL 1.99-6.95 (test code = 9661254584) IMM GRAN x10^3 (test <0.03 0.00-0.06 code = 8320717766) LYMPH x10^3 (test code 1.55 10*3/uL 1.09-3.23 = 731-0) MONO x10^3 (test code 0.42 10*3/uL 0.36-1.02 = 742-7) EOS x10^3 (test code = 0.11 10*3/uL 0.06-0.53 711-2) BASO x10^3 (test code <0.03 0.01-0.09 = 704-7) Lab Interpretation Abnormal (test code = 14146-1) [facility] WITH [id number] 04:23:56 Test Item Value Reference Range Interpretation [...] RDW-SD (test code = 49.0 fL 38.5-51.6 66302-4) RDW-CV (test code = 14.4 % 12.1-15.4 788-0) PLT (test code = See_Comment [Automated 777-3) message] The sy stem which generated this result transmitted reference range : 150 - 328 10*3/ ?L. The reference r meredith was not used to interpret this result as normal/abnormal . MPV (test code = 9.5 fL 9.8-13.0 L 52819-0) NRBC/100 WBC (test See_Comment [Automat ed code = 9159043069) message] The system which generated this result transmitted reference range : 0.0 - 10.0 /100 WBCs. The refer ence range was not u sed to interpret th is result as normal/abnormal . NRBC x10^3 (test code <0.01 See_Comment [Auto mated = 9516590868) message] The s ystem which generated this result transmitted reference range : 10*3/?L. The reference range was not used to interpret this result as normal/abnormal . GRAN MAT (NEUT) % 49.9 % (test code = 770-8) IMM GRAN % (test code 0.20 % = 9872111327) LYMPH % (test code = 35.2 % 736-9) MONO % (test code = 11.7 % 5905-5) EOS % (test code = 2.4 % 713-8) BASO % (test code = 0.6 % 706-2) GRAN MAT x10^3(ANC) 2.31 10*3/uL 1.99-6.95 (test code = 8561620421) IMM GRAN x10^3 (test <0.03 0.00-0.06 code = 9450966886) LYMPH x10^3 (test code 1.63 10*3/uL 1.09-3.23 = 731-0) MONO x10^3 (test code 0.54 10*3/uL 0.36-1.02 = 742-7) EOS x10^3 (test code = 0.11 10*3/uL 0.06-0.53 711-2) BASO x10^3 (test code 0.03 10*3/uL 0.01-0.09 = 704-7) Lab Interpretation Abnormal (test code = 22033-3) [facility] METABOLIC PANEL (NA, K, CL, CO2, GLUCOSE, BUN, CREATININE, CA)2021-07-24 12:55:24 Test Item Value Reference Range Interpretation Comments NA (test code = 135 mmol/L 135-145 5165804077) K (test code = 4.0 mmol/L 3.5-5.0 6024056016) CL (test code = 109 mmol/L 98-108 H 2773919378) CO2 TOTAL (test code = 22 mmol/L 23-31 L 1767058540) AGAP (test code = 2-16 5244472021) BUN (test code = 12 mg/dL 7-23 2201052813) GLUCOSE (test code = 102 mg/dL 70-110 7054648659) CREATININE (test code = 1.27 mg/dL 0.60-1.25 H 8094972451) CALCIUM (test code = 8.6 mg/dL 8.6-10.6 6499960673) eGFR (test code = mL/min/1.73m2 9817334786) GILBERTO (test code = GILBERTO) Association of [...] tests). Lab Interpretation Abnormal (test code = 12726-2) [facility]:24 Test Item Value Reference Range Interpretation Comments MAGNESIUM (test code = 4857510097) 1.7 mg/dL 1.7-2.4 Lab Interpretation (test code = Normal 53390-9) [facility] 12:55:24 Test Item Value Reference Range Interpretation Comments PHOSPHORUS (test code = 2731763529) 3.1 mg/dL 2.5-5.0 Lab Interpretation (test code = Normal 85995-8) [facility] (NA, K, CL, CO2, Glucose, BUN, Creatinine, CA)2021-07-23 13:27:55 Test Item Value Reference Range Interpretation Comments NA (test code = 134 mmol/L 135-145 L 5887733103) K (test code = 3.8 mmol/L 3.5-5.0 2787069378) CL (test code = 107 mmol/L 98-108 6962153254) CO2 TOTAL (test code = 21 mmol/L 23-31 L 4950241709) AGAP (test code = 2-16 3243203872) BUN (test code = 18 mg/dL 7-23 3218975734) GLUCOSE (test code = 120 mg/dL 70-110 H 4627139257) CREATININE (test code = 1.46 mg/dL 0.60-1.25 H 4166775633) CALCIUM (test code = 8.7 mg/dL 8.6-10.6 9737794705) eGFR (test code = mL/min/1.73m2 8668291530) GILBERTO (test code = GILBERTO) Association of [...] tests). Lab Interpretation Abnormal (test code = 07344-6) [place] [facility] [facility]IUM20[facility] 13:27:55 Test Item Value Reference Range Interpretation Comments MAGNESIUM (test code = 8016866299) 1.9 mg/dL 1.7-2.4 Lab Interpretation (test code = Normal 46678-6) [facility]2021[facility] 13:27:55 Test Item Value Reference Range Interpretation Comments PHOSPHORUS (test code = 1008283294) 3.5 mg/dL 2.5-5.0 Lab Interpretation (test code = Normal 35332-2) [facility]CB with Cczizrarxzqz6548-99-80 13:06:55 Test Item Value Reference Range Interpretation Comments WBC (test code = See_Comment [Automated 3890-2) message] The sy stem which generated this result transmitted reference range : 4.20 - 10.70 10*3/?L. The reference range was not used to interpret this result as normal/abnormal . RBC (test code = See_Comment L [Automated 399-8) message] The sy stem which generated this [...] RDW-SD (test code = 47.8 fL 38.5-51.6 56423-3) RDW-CV (test code = 14.4 % 12.1-15.4 788-0) PLT (test code = See_Comment [Automated 777-3) message] The sy stem which generated this result transmitted reference range : 150 - 328 10*3/ ?L. The reference r meredith was not used to interpret this result as normal/abnormal . MPV (test code = 9.4 fL 9.8-13.0 L 26846-1) NRBC/100 WBC (test See_Comment [Automat ed code = 1243811057) message] The system which generated this result transmitted reference range : 0.0 - 10.0 /100 WBCs. The refer ence range was not u sed to interpret th is result as normal/abnormal . NRBC x10^3 (test code <0.01 See_Comment [Auto mated = 1240713470) message] The s ystem which generated this result transmitted reference range : 10*3/?L. The reference range was not used to interpret this result as normal/abnormal . GRAN MAT (NEUT) % 54.7 % (test code = 770-8) IMM GRAN % (test code 0.40 % = 7434199627) LYMPH % (test code = 33.3 % 736-9) MONO % (test code = 9.4 % 5905-5) EOS % (test code = 1.8 % 713-8) BASO % (test code = 0.4 % 706-2) GRAN MAT x10^3(ANC) 2.78 10*3/uL 1.99-6.95 (test code = 3330263563) IMM GRAN x10^3 (test <0.03 0.00-0.06 code = 0738170791) LYMPH x10^3 (test code 1.69 10*3/uL 1.09-3.23 = 731-0) MONO x10^3 (test code 0.48 10*3/uL 0.36-1.02 = 742-7) EOS x10^3 (test code = 0.09 10*3/uL 0.06-0.53 711-2) BASO x10^3 (test code <0.03 0.01-0.09 = 704-7) Lab Interpretation Abnormal (test code = 47005-4) [facility] W/AUTO [id number] 09:48:00 Test Item Value Reference Range Interpretation [...] = MX#) 0.8 k/mm3 0.1-0.8 N GLUCOSE [id number] 06:12:00 Test Item Value Reference Range Interpretation Comments GLUCOSE BEDSIDE (test 129 MG/DL 70-110 H [facility] med by certified code = GLUBED) 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 [facility] BASIC METABOLIC [id number] 05:21:00 Test Item Value Reference Range Interpretation [...] (test code = POCGLU) 92 MG/DL GLUCOSE [id number] 05:19:00 Test Item Value Reference Range Interpretation Comments GLUCOSE BEDSIDE (test 51 MG/DL 70-110 L [facility] med by certified code = GLUBED) 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 [facility] CBC W/AUTO [id number] 14:00:00 Test Item Value Reference Range Interpretation [...] MX#) 0.2 k/mm3 0.1-0.8 N CBC W/AUTO [id number] 00:07:00 Test Item Value Reference Range Interpretation [...] = LY#) 2.4 K/uL 1.0-3.8 N LIVER [id number] 16:14:00 Test Item Value Reference Range Interpretation Comments TOTAL PROTEIN (test code 7.5 GM/DL 5.0-8.0 N Per formed by = PROT) 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 [facility] ALBUMIN (test code = 3.9 [...] 65 UNITS/L 25-125 N TAWNY) BASIC METABOLIC [id number] 16:07:00 Test Item Value Reference Range Interpretation [...] POCGLU) 96 MG/DL - XR CHEST 1 [id number] 00:00:00 [facility] : 1970 Sex: MFAX: Sabi Urias MD [phone] [place]: [place] St: PRE Name: JOSEPHDORA FSED : 1970 Age/S: 51/M [address] [facility] Unit #: [id number] Loc: [place], [place] [address] Phys: Sabi Urias MD Acct: [id number] Dis Date: Status: PRE ER PHONE #: Exam Date: 06/27/2021 0109 FAX #: Reason: Abdominal Pain EXAMS: CPT CODE: [id number] XR CHEST 1 V 38689 PROCEDURE INFORMATION: Exam: XR Chest Exam date [...] Technologist: Yecenia Carbajal RT(R)(CT) Trnscrd Date/Time/By: 06/27/2021 (1558) : By: [email or web address] Orig Print D/T: S: 06/27/2021 (1558) PAGE 1 Signed Report- CT ABD PELVIS [id number] 00:00:00 [facility] : 1970 Sex: MName: DORA JOSEPH FSED : 1970 Age/S: 51 / M [address] [facility] Unit #: [id number] Loc: [place] [address] Phys: Sabi Urias MD Acct: [id number] Dis Date: Status: REG ER PHONE #: Exam Date: 06/27/2021 1625 FAX #: Reason: pain in region of colostomy EXAMS: CPT CODE: [id number] CT ABD PELVIS W/CONT 62106 PROCEDURE INFORMATION: Exam: CT Abdomen And Pelvis [...] : 1970 Age/S: 51 / M [address] [facility] Unit #: [id number] Loc: [place] [address] Phys: Sabi Urias MD Acct: [id number] Dis Date: Status: REG ER PHONE #: Exam Date: 06/27/2021 1621 FAX #: Reason: pain in region of colostomy EXAMS: CPT CODE: [id number] CT ABD PELVIS W/CONT 12370 <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 There is no evidence of associated intestinal obstruction. 2. No additional acute CT abnormalities of the abdomen or pelvis are identified. SL:131 at 1650 Reported and signed by: Marco Raman M.D. CC: Saib Urias MD Technologist:RT Alanna(R)(CT) CTDI: DLP: Trnscb Date/Time: 06/27/2021 (1649) [email or web address] Orig Print D/T: S: 06/27/2021 (1649) PAGE 2 Signed ReportBASIC METABOLIC PANEL (NA, K, CL, CO2, GLUCOSE, BUN, CREATININE, CA)2021-06-03 11:32:40 Test Item Value Reference Range Interpretation Comments NA (test code = 133 mmol/L 135-145 L 8139395899) K (test code = 3.7 mmol/L 3.5-5.0 7624345193) CL (test code = 108 mmol/L 98-108 5321125560) CO2 TOTAL (test code = 20 mmol/L 23-31 L 2081476518) AGAP (test code = 2-16 8806930441) BUN (test code = 11 mg/dL 7-23 1363193988) GLUCOSE (test code = 82 mg/dL 70-110 4610677643) CREATININE (test code = 0.96 mg/dL 0.60-1.25 0218831884) CALCIUM (test code = 8.6 mg/dL 8.6-10.6 2216792739) eGFR (test code = mL/min/1.73m2 3645094247) GILBERTO (test code = GILBERTO) Association of [...] tests). Lab Interpretation Abnormal (test code = 03457-0) [facility] METABOLIC PANEL (NA, K, CL, CO2, GLUCOSE, BUN, CREATININE, CA)2021-06-02 11:45:25 Test Item Value Reference Range Interpretation Comments NA (test code = 133 mmol/L 135-145 L 6679452176) K (test code = 3.7 mmol/L 3.5-5.0 3092481008) CL (test code = 111 mmol/L 98-108 H 4860750656) CO2 TOTAL (test code = 17 mmol/L 23-31 L 9447498157) AGAP (test code = 2-16 5468597303) BUN (test code = 15 mg/dL 7-23 6836069312) GLUCOSE (test code = 88 mg/dL 70-110 9049766604) CREATININE (test code = 0.96 mg/dL 0.60-1.25 3832081767) CALCIUM (test code = 8.1 mg/dL 8.6-10.6 L 7489022005) eGFR (test code = mL/min/1.73m2 4944637741) GILBERTO (test code = GILBERTO) Association of [...] tests). Lab Interpretation Abnormal (test code = 05190-7) [facility] METABOLIC PANEL (NA, K, CL, CO2, GLUCOSE, BUN, CREATININE, CA)2021-06-01 17:06:47 Test Item Value Reference Range Interpretation Comments NA (test code = 131 mmol/L 135-145 L 6234141421) K (test code = 3.9 mmol/L 3.5-5.0 Slight 1729331533) hemolysis CL (test code = 108 mmol/L 98-108 4021675021) CO2 TOTAL (test code 15 mmol/L 23-31 L = 0764616710) AGAP (test code = 2-16 4420402624) BUN (test code = 26 mg/dL 7-23 H Slight 2852927674) hemolysis GLUCOSE (test code = 85 mg/dL 70-110 4637520981) CREATININE (test code 1.26 mg/dL 0.60-1.25 H = 5035250345) CALCIUM (test code = 8.1 mg/dL 8.6-10.6 L 8112915122) eGFR (test code = mL/min/1.73m2 8686406954) GILBERTO (test code = GILBERTO) Association of [...] tests). Lab Interpretation Abnormal (test code = 57993-7) [facility] CampusL[facility] Acid Whole [id number] 05:45:35 Test Item Value Reference Range Interpretation Comments LACTIC ACID (test code = 0.67 mmol/L 0.50-2.20 1789944118) Lab Interpretation (test code = Normal 50042-0) [facility] CampusTROPONIN [id number] 23:44:55 Test Item Value Reference Interpretation Comments Range TROPONIN I (test 0.004 ng/mL See_Comment [Automated code = 0170904669) message] The system which generated this result [...] biotin. Lab Interpretation Normal (test code = 47937-1) [facility] CampusLIPASE2021-10-08 23:33:28 Test Item Value Reference Range Interpretation Comments LIPASE (test code = 4228106081) 386 U/L 0-220 H Lab Interpretation (test code = Abnormal 50577-9) [facility]COMP. METABOLIC PANEL (89224)2021-05-31 23:33:28 Test Item Value Reference Range Interpretation Comments NA (test code = 128 mmol/L 135-145 L 2028233445) K (test code = 4.2 mmol/L 3.5-5.0 0551800927) CL (test code = 102 mmol/L 98-108 7691752875) CO2 TOTAL (test code = 13 mmol/L 23-31 L 0553119066) AGAP (test code = 2-16 5681280725) BUN (test code = 47 mg/dL 7-23 H 1111469078) GLUCOSE (test code = 106 mg/dL 70-110 1629866279) CREATININE (test code = 2.38 mg/dL 0.60-1.25 H 1355207948) TOTAL BILI (test code = 0.6 mg/dL 0.1-1.3 6456694227) CALCIUM (test code = 9.5 mg/dL 8.6-10.6 1987573731) T PROTEIN (test code = 7.3 g/dL 6.3-8.2 3737366385) ALBUMIN (test code = 4.6 g/dL 3.5-5.0 7910405483) ALK PHOS (test code = 110 U/L 34-122 2296426597) ALTv (test code = 29 U/L 5-50 2-6) AST(SGOT) (test code = 33 U/L 13-40 7444841124) eGFR (test code = mL/min/1.73m2 5104120963) GILBERTO (test code = GILBERTO) Association of [...] tests). Lab Interpretation Abnormal (test code = 51246-8) [facility] WITH [id number] 22:57:06 Test Item Value Reference Range Interpretation [...] RDW-SD (test code = 43.2 fL 38.5-51.6 27839-4) RDW-CV (test code = 13.7 % 12.1-15.4 788-0) PLT (test code = See_Comment [Automated 777-3) message] The sy stem which generated this result transmitted reference range : 150 - 328 10*3/ ?L. The reference r meredith was not used to interpret this result as normal/abnormal . MPV (test code = 10.1 fL 9.8-13.0 26465-6) NRBC/100 WBC (test See_Comment [Automat ed code = 9433952070) message] The system which generated this result transmitted reference range : 0.0 - 10.0 /100 WBCs. The refer ence range was not u sed to interpret th is result as normal/abnormal . NRBC x10^3 (test code <0.01 See_Comment [Auto mated = 5429547558) message] The s ystem which generated this result transmitted reference range : 10*3/?L. The reference range was not used to interpret this result as normal/abnormal . GRAN MAT (NEUT) % 68.1 % (test code = 770-8) IMM GRAN % (test code 0.40 % = 1382199706) LYMPH % (test code = 21.9 % 736-9) MONO % (test code = 8.9 % 5905-5) EOS % (test code = 0.3 % 713-8) BASO % (test code = 0.4 % 706-2) GRAN MAT x10^3(ANC) 5.38 10*3/uL 1.99-6.95 (test code = 9653341282) IMM GRAN x10^3 (test 0.03 10*3/uL 0.00-0.06 code = 4985640436) LYMPH x10^3 (test code 1.73 10*3/uL 1.09-3.23 = 731-0) MONO x10^3 (test code 0.70 10*3/uL 0.36-1.02 = 742-7) EOS x10^3 (test code = <0.03 0.06-0.53 L 711-2) BASO x10^3 (test code 0.03 10*3/uL 0.01-0.09 = 704-7) Lab Interpretation Abnormal (test code = 52545-3) [facility] CampusMAGNESIUM2021-09-28 09:49:03 Test Item Value Reference Range Interpretation Comments MAGNESIUM (test code = 6174084734) 2.0 mg/dL 1.7-2.4 Lab Interpretation (test code = Normal 73400-7) [facility]PHOSPHORUS2021-09-28 09:49:03 Test Item Value Reference Range Interpretation Comments PHOSPHORUS (test code = 5372281952) 4.0 mg/dL 2.5-5.0 Lab Interpretation (test code = Normal 45049-4) [facility] CampusBasic Metabolic Panel (NA, K, CL, CO2, GLUCOSE, BUN, CREATININE, CA)2021-05-21 09:49:03 Test Item Value Reference Range Interpretation Comments NA (test code = 132 mmol/L 135-145 L 1608859355) K (test code = 4.3 mmol/L 3.5-5.0 4079023782) CL (test code = 105 mmol/L 98-108 7957739394) CO2 TOTAL (test code = 21 mmol/L 23-31 L 0764580050) AGAP (test code = 2-16 2361807986) BUN (test code = 25 mg/dL 7-23 H 4138057634) GLUCOSE (test code = 98 mg/dL 70-110 9213676967) CREATININE (test code = 1.20 mg/dL 0.60-1.25 4862184276) CALCIUM (test code = 8.4 mg/dL 8.6-10.6 L 6368003813) eGFR (test code = mL/min/1.73m2 6766218511) GILBERTO (test code = GILBERTO) Association of [...] tests). Lab Interpretation Abnormal (test code = 88793-4) [facility] with Zlwkmltxthkf1507-07-04 09:22:22 Test Item Value Reference Range Interpretation Comments WBC (test code = See_Comment [Automated 7892-2) message] The sy stem which generated this [...] RDW-SD (test code = 45.6 fL 38.5-51.6 97998-5) RDW-CV (test code = 13.7 % 12.1-15.4 788-0) PLT (test code = See_Comment [Automated 777-3) message] The sy stem which generated this result transmitted reference range : 150 - 328 10*3/ ?L. The reference r meredith was not used to interpret this result as normal/abnormal . MPV (test code = 9.7 fL 9.8-13.0 L 12733-5) NRBC/100 WBC (test See_Comment [Automat ed code = 2613532197) message] The system which generated this result transmitted reference range : 0.0 - 10.0 /100 WBCs. The refer ence range was not u sed to interpret th is result as normal/abnormal . NRBC x10^3 (test code <0.01 See_Comment [Auto mated = 9609034299) message] The s ystem which generated this result transmitted reference range : 10*3/?L. The reference range was not used to interpret this result as normal/abnormal . GRAN MAT (NEUT) % 49.4 % (test code = 770-8) IMM GRAN % (test code 0.60 % = 3979746758) LYMPH % (test code = 35.2 % 736-9) MONO % (test code = 11.9 % 5905-5) EOS % (test code = 2.1 % 713-8) BASO % (test code = 0.8 % 706-2) GRAN MAT x10^3(ANC) 2.33 10*3/uL 1.99-6.95 (test code = 0823247452) IMM GRAN x10^3 (test 0.03 10*3/uL 0.00-0.06 code = 7504955536) LYMPH x10^3 (test code 1.66 10*3/uL 1.09-3.23 = 731-0) MONO x10^3 (test code 0.56 10*3/uL 0.36-1.02 = 742-7) EOS x10^3 (test code = 0.10 10*3/uL 0.06-0.53 711-2) BASO x10^3 (test code 0.04 10*3/uL 0.01-0.09 = 704-7) Lab Interpretation Abnormal (test code = 69953-7) [facility]2021-09-[facility] 20:21:19 Test Item Value Reference Range Interpretation Comments LIPASE (test code = 4173524055) 307 U/L 0-220 H Lab Interpretation (test code = Abnormal 03298-9) [facility] CampusCOMP. METABOLIC PANEL (70267)2021-05-20 20:21:19 Test Item Value Reference Range Interpretation Comments NA (test code = 132 mmol/L 135-145 L 0500556161) K (test code = 4.3 mmol/L 3.5-5.0 6123102997) CL (test code = 100 mmol/L 98-108 3249804054) CO2 TOTAL (test code = 18 mmol/L 23-31 L 6144797468) AGAP (test code = 2-16 4284559033) BUN (test code = 32 mg/dL 7-23 H 6492881516) GLUCOSE (test code = 100 mg/dL 70-110 5378387011) CREATININE (test code = 1.76 mg/dL 0.60-1.25 H 9044887207) TOTAL BILI (test code = 0.7 mg/dL 0.1-1.4 1615141088) CALCIUM (test code = 9.6 mg/dL 8.6-10.6 6808915193) T PROTEIN (test code = 7.5 g/dL 6.3-8.2 8446151330) ALBUMIN (test code = 4.7 g/dL 3.5-5.0 7852299691) ALK PHOS (test code = 104 U/L 34-122 4231347173) ALTv (test code = 23 U/L 5-50 1742-6) AST(SGOT) (test code = 29 U/L 13-40 0161979357) eGFR (test code = mL/min/1.73m2 2225621772) GILBERTO (test code = GILBERTO) Association of [...] tests). Lab Interpretation Abnormal (test code = 76603-8) [facility] WITH [id number] 20:15:39 Test Item Value Reference Range Interpretation Comments WBC (test code = See_Comment [Automated message] 6690-2) The system [employer] generated this result transmitted ref erence range: 4.20 - 1 0.70 10*3/?L. The re ference range was not u sed to interpret this result as normal/abnor mal. RBC (test code = See_Comment [Automated message] 789-8) The system [employer] generated this result transmitted ref erence range: [...] RDW-SD (test code 44.8 fL 38.5-51.6 = 78212-3) RDW-CV (test code 13.7 % 12.1-15.4 = 788-0) PLT (test code = See_Comment [Automated message] 777-3) The system [employer] generated this result transmitted ref erence range: 150 - 32 8 10*3/?L. The re ference range was not u sed to interpret this result as normal/abnor mal. MPV (test code = 9.8 fL 9.8-13.0 06254-6) NRBC/100 WBC (test See_Comment [Automat ed message] code = 6999632344) The syste m which generated this result transmitted ref erence range: 0.0 - 10 .0 /100 WBCs. The refer ence range was not u sed to interpret this result as normal/abnor mal. NRBC x10^3 (test <0.01 See_Comment [Automated message] code = 3861178511) The syste m which generated this result transmitted ref erence range: 10*3/?L. The reference range was not used to interpr et this result as normal/abnormal . GRAN MAT (NEUT) % 55.9 % (test code = 770-8) IMM GRAN % (test 0.40 % code = 5801005381) LYMPH % (test code 32.5 % = 736-9) MONO % (test code 9.4 % = 5905-5) EOS % (test code = 1.2 % 713-8) BASO % (test code 0.6 % = 706-2) GRAN MAT 3.87 10*3/uL 1.99-6.95 x10^3(ANC) (test code = 0870450750) IMM GRAN x10^3 0.03 10*3/uL 0.00-0.06 (test code = 4094710375) LYMPH x10^3 (test 2.25 10*3/uL 1.09-3.23 code = 731-0) MONO x10^3 (test 0.65 10*3/uL 0.36-1.02 code = 742-7) EOS x10^3 (test 0.08 10*3/uL 0.06-0.53 code = 711-2) BASO x10^3 (test 0.04 10*3/uL 0.01-0.09 code = 704-7) [facility]Lau[facility] Acid Whole Eoocv9783-94-97 20:07:57 Test Item Value Reference Range Interpretation Comments LACTIC ACID (test code = 1.81 mmol/L 0.50-2.20 3595208159) Lab Interpretation (test code = Normal 57473-6) [facility] Metabolic Panel (NA, K, CL, CO2, GLUCOSE, BUN, CREATININE, CA)2021-05-08 10:32:35 Test Item Value Reference Range Interpretation Comments NA (test code = 135 mmol/L 135-145 8361858568) K (test code = 4.2 mmol/L 3.5-5.0 0440125125) CL (test code = 106 mmol/L 98-108 2007138307) CO2 TOTAL (test code 23 mmol/L 23-31 = 7662757703) AGAP (test code = 2-16 7842798074) BUN (test code = 22 mg/dL 7-23 4249538154) GLUCOSE (test code = 87 mg/dL 70-110 8905085102) CREATININE (test code 1.21 mg/dL 0.60-1.25 = 5204474756) CALCIUM (test code = 8.7 mg/dL 8.6-10.6 4106657908) eGFR (test code = mL/min/1.73m2 1724107105) GILBERTO (test code = GILBERTO) Association of [...] or urine or abnormalities in imaging tests). [facility] Metabolic Panel (NA, K, CL, CO2, GLUCOSE, BUN, CREATININE, CA)2021-05-08 10:32:35 Test Item Value Reference Range Interpretation Comments NA (test code = 135 mmol/L 135-145 5032923800) K (test code = 4.2 mmol/L 3.5-5.0 7883194603) CL (test code = 106 mmol/L 98-108 3593273179) CO2 TOTAL (test code 23 mmol/L 23-31 = 1584649129) AGAP (test code = 2-16 6960049469) BUN (test code = 22 mg/dL 7-23 4501500908) GLUCOSE (test code = 87 mg/dL 70-110 6784302515) CREATININE (test code 1.21 mg/dL 0.60-1.25 = 2933448719) CALCIUM (test code = 8.7 mg/dL 8.6-10.6 4680892708) eGFR (test code = mL/min/1.73m2 1673479010) GILBERTO (test code = GILBERTO) Association of [...] or urine or abnormalities in imaging tests). [facility] with Feitluyscfyu7496-86-71 10:12:52 Test Item Value Reference Range Interpretation Comments WBC (test code = See_Comment [Automated 3048-2) message] The sy stem which generated this result transmitted reference range : 4.20 - 10.70 10*3/?L. The reference range was not used to interpret this result as normal/abnormal . RBC (test code = See_Comment L [Automated 999-8) message] The sy stem which generated this [...] RDW-SD (test code = 48.4 fL 38.5-51.6 70691-1) RDW-CV (test code = 14.0 % 12.1-15.4 788-0) PLT (test code = See_Comment [Automated 777-3) message] The sy stem which generated this result transmitted reference range : 150 - 328 10*3/ ?L. The reference r meredith was not used to interpret this result as normal/abnormal . MPV (test code = 9.6 fL 9.8-13.0 L 79333-7) NRBC/100 WBC (test See_Comment [Automat ed code = 0532793026) message] The system which generated this result transmitted reference range : 0.0 - 10.0 /100 WBCs. The refer ence range was not u sed to interpret th is result as normal/abnormal . NRBC x10^3 (test code <0.01 See_Comment [Auto mated = 3744443091) message] The s ystem which generated this result transmitted reference range : 10*3/?L. The reference range was not used to interpret this result as normal/abnormal . GRAN MAT (NEUT) % 55.6 % (test code = 770-8) IMM GRAN % (test code 0.20 % = 1485971186) LYMPH % (test code = 31.5 % 736-9) MONO % (test code = 9.9 % 5905-5) EOS % (test code = 2.0 % 713-8) BASO % (test code = 0.8 % 706-2) GRAN MAT x10^3(ANC) 2.76 10*3/uL 1.99-6.95 (test code = 5329272582) IMM GRAN x10^3 (test <0.03 0.00-0.06 code = 7332585193) LYMPH x10^3 (test code 1.56 10*3/uL 1.09-3.23 = 731-0) MONO x10^3 (test code 0.49 10*3/uL 0.36-1.02 = 742-7) EOS x10^3 (test code = 0.10 10*3/uL 0.06-0.53 711-2) BASO x10^3 (test code 0.04 10*3/uL 0.01-0.09 = 704-7) Lab Interpretation Abnormal (test code = 00715-8) [facility] with Etsfwibhveej6579-98-94 10:12:52 Test Item Value Reference Range Interpretation [...] RDW-SD (test code = 48.4 fL 38.5-51.6 59140-3) RDW-CV (test code = 14.0 % 12.1-15.4 788-0) PLT (test code = See_Comment [Automated 777-3) message] The sy stem which generated this result transmitted reference range : 150 - 328 10*3/ ?L. The reference r meredith was not used to interpret this result as normal/abnormal . MPV (test code = 9.6 fL 9.8-13.0 L 06264-1) NRBC/100 WBC (test See_Comment [Automat ed code = 4947169736) message] The system which generated this result transmitted reference range : 0.0 - 10.0 /100 WBCs. The refer ence range was not u sed to interpret th is result as normal/abnormal . NRBC x10^3 (test code <0.01 See_Comment [Auto mated = 5371035546) message] The s ystem which generated this result transmitted reference range : 10*3/?L. The reference range was not used to interpret this result as normal/abnormal . GRAN MAT (NEUT) % 55.6 % (test code = 770-8) IMM GRAN % (test code 0.20 % = 9413868042) LYMPH % (test code = 31.5 % 736-9) MONO % (test code = 9.9 % 5905-5) EOS % (test code = 2.0 % 713-8) BASO % (test code = 0.8 % 706-2) GRAN MAT x10^3(ANC) 2.76 10*3/uL 1.99-6.95 (test code = 6489929805) IMM GRAN x10^3 (test <0.03 0.00-0.06 code = 5357549532) LYMPH x10^3 (test code 1.56 10*3/uL 1.09-3.23 = 731-0) MONO x10^3 (test code 0.49 10*3/uL 0.36-1.02 = 742-7) EOS x10^3 (test code = 0.10 10*3/uL 0.06-0.53 711-2) BASO x10^3 (test code 0.04 10*3/uL 0.01-0.09 = 704-7) Lab Interpretation Abnormal (test code = 47433-5) [facility] METABOLIC PANEL (NA, K, CL, CO2, GLUCOSE, BUN, CREATININE, CA)2021-05-08 01:11:57 Test Item Value Reference Range Interpretation Comments NA (test code = 134 mmol/L 135-145 L 6065017816) K (test code = 4.7 mmol/L 3.5-5.0 3957081604) CL (test code = 100 mmol/L 98-108 0361122424) CO2 TOTAL (test code = 24 mmol/L 23-31 1654003059) AGAP (test code = 2-16 0380277545) BUN (test code = 27 mg/dL 7-23 H 0134471705) GLUCOSE (test code = 94 mg/dL 70-110 4167260970) CREATININE (test code = 1.31 mg/dL 0.60-1.25 H 8776678154) CALCIUM (test code = 9.5 mg/dL 8.6-10.6 4893842996) eGFR (test code = mL/min/1.73m2 1507334400) GILBERTO (test code = GILBERTO) Association of [...] tests). Lab Interpretation Abnormal (test code = 51722-8) [facility] (ALB,T.PRO,BILI T,BU/BC,ALT,AST,ALK PHOS)2021-05-08 01:11:57 Test Item Value Reference Range Interpretation Comments TOTAL BILI (test code = 2474478425) 0.8 mg/dL 0.1-1.1 BILI UNCON (test code = 7063767491) 0.2 mg/dL 0.1-1.1 BILI CONJ (test code = 1314181168) 0.0 mg/dL 0.0-0.3 T PROTEIN (test code = 3928916735) 7.1 g/dL 6.3-8.2 ALBUMIN (test code = 3286982622) 4.4 g/dL 3.5-5.0 ALK PHOS (test code = 0481174430) 88 U/L 34-122 ALTv (test code = 1742-6) 40 U/L 5-50 AST(SGOT) (test code = 9470382367) 38 U/L 13-40 Lab Interpretation (test code = Normal 36031-1) [facility] CampusBASIC METABOLIC PANEL (NA, K, CL, CO2, GLUCOSE, BUN, CREATININE, CA)2021-05-08 01:11:57 Test Item Value Reference Range Interpretation Comments NA (test code = 134 mmol/L 135-145 L 2666530075) K (test code = 4.7 mmol/L 3.5-5.0 7362802361) CL (test code = 100 mmol/L 98-108 4226260904) CO2 TOTAL (test code = 24 mmol/L 23-31 0623762659) AGAP (test code = 2-16 0675771494) BUN (test code = 27 mg/dL 7-23 H 1407440030) GLUCOSE (test code = 94 mg/dL 70-110 7360401869) CREATININE (test code = 1.31 mg/dL 0.60-1.25 H 3554681500) CALCIUM (test code = 9.5 mg/dL 8.6-10.6 7287882749) eGFR (test code = mL/min/1.73m2 8505673028) GILBERTO (test code = GILBERTO) Association of [...] tests). Lab Interpretation Abnormal (test code = 66163-0) [facility] CampusHEPATIC FUNCTION PANEL (15554) (ALB,T.PRO,BILI T,BU/BC,ALT,AST,ALK PHOS)2021-05-08 01:11:57 Test Item Value Reference Range Interpretation Comments TOTAL BILI (test code = 0450107462) 0.8 mg/dL 0.1-1.1 BILI UNCON (test code = 9767311233) 0.2 mg/dL 0.1-1.1 BILI CONJ (test code = 9243967017) 0.0 mg/dL 0.0-0.3 T PROTEIN (test code = 2979957323) 7.1 g/dL 6.3-8.2 ALBUMIN (test code = 2381264754) 4.4 g/dL 3.5-5.0 ALK PHOS (test code = 5397525634) 88 U/L 34-122 ALTv (test code = 1742-6) 40 U/L 5-50 AST(SGOT) (test code = 4479999424) 38 U/L 13-40 Lab Interpretation (test code = Normal 53471-5) [facility] WITH [id number] 00:59:56 Test Item Value Reference Range Interpretation [...] RDW-SD (test code = 46.9 fL 38.5-51.6 05050-3) RDW-CV (test code = 13.9 % 12.1-15.4 788-0) PLT (test code = See_Comment [Automated 777-3) message] The sy stem which generated this result transmitted reference range : 150 - 328 10*3/ ?L. The reference r meredith was not used to interpret this result as normal/abnormal . MPV (test code = 10.0 fL 9.8-13.0 03999-8) NRBC/100 WBC (test See_Comment [Automat ed code = 4760596889) message] The system which generated this result transmitted reference range : 0.0 - 10.0 /100 WBCs. The refer ence range was not u sed to interpret th is result as normal/abnormal . NRBC x10^3 (test code <0.01 See_Comment [Auto mated = 2337222572) message] The s ystem which generated this result transmitted reference range : 10*3/?L. The reference range was not used to interpret this result as normal/abnormal . GRAN MAT (NEUT) % 53.9 % (test code = 770-8) IMM GRAN % (test code 0.30 % = 1656126990) LYMPH % (test code = 32.0 % 736-9) MONO % (test code = 11.6 % 5905-5) EOS % (test code = 1.6 % 713-8) BASO % (test code = 0.6 % 706-2) GRAN MAT x10^3(ANC) 3.67 10*3/uL 1.99-6.95 (test code = 4415787372) IMM GRAN x10^3 (test <0.03 0.00-0.06 code = 1603678554) LYMPH x10^3 (test code 2.18 10*3/uL 1.09-3.23 = 731-0) MONO x10^3 (test code 0.79 10*3/uL 0.36-1.02 = 742-7) EOS x10^3 (test code = 0.11 10*3/uL 0.06-0.53 711-2) BASO x10^3 (test code 0.04 10*3/uL 0.01-0.09 = 704-7) Lab Interpretation Abnormal (test code = 91746-7) [facility] WITH [id number] 00:59:56 Test Item Value Reference Range Interpretation [...] RDW-SD (test code = 46.9 fL 38.5-51.6 27018-1) RDW-CV (test code = 13.9 % 12.1-15.4 788-0) PLT (test code = See_Comment [Automated 777-3) message] The sy stem which generated this result transmitted reference range : 150 - 328 10*3/ ?L. The reference r merediht was not used to interpret this result as normal/abnormal . MPV (test code = 10.0 fL 9.8-13.0 48350-5) NRBC/100 WBC (test See_Comment [Automat ed code = 0634393369) message] The system which generated this result transmitted reference range : 0.0 - 10.0 /100 WBCs. The refer ence range was not u sed to interpret th is result as normal/abnormal . NRBC x10^3 (test code <0.01 See_Comment [Auto mated = 1699223530) message] The s ystem which generated this result transmitted reference range : 10*3/?L. The reference range was not used to interpret this result as normal/abnormal . GRAN MAT (NEUT) % 53.9 % (test code = 770-8) IMM GRAN % (test code 0.30 % = 8894633696) LYMPH % (test code = 32.0 % 736-9) MONO % (test code = 11.6 % 5905-5) EOS % (test code = 1.6 % 713-8) BASO % (test code = 0.6 % 706-2) GRAN MAT x10^3(ANC) 3.67 10*3/uL 1.99-6.95 (test code = 5444223991) IMM GRAN x10^3 (test <0.03 0.00-0.06 code = 6737338821) LYMPH x10^3 (test code 2.18 10*3/uL 1.09-3.23 = 731-0) MONO x10^3 (test code 0.79 10*3/uL 0.36-1.02 = 742-7) EOS x10^3 (test code = 0.11 10*3/uL 0.06-0.53 711-2) BASO x10^3 (test code 0.04 10*3/uL 0.01-0.09 = 704-7) Lab Interpretation Abnormal (test code = 54946-1) [facility] W/AUTO [id number] 09:20:00 Test Item Value Reference Range Interpretation [...] (test code NO = MDIFF) CBC W/AUTO [id number] 08:59:00 Test Item Value Reference Range Interpretation [...] REQUIRED (test code = MDIFF) BASIC METABOLIC [id number] 08:21:00 Test Item Value Reference Range Interpretation [...] 8.4 mg/dL 8.0-10.5 N CA) BASIC METABOLIC [id number] 08:34:00 Test Item Value Reference Range Interpretation [...] 8.4 mg/dL 8.0-10.5 N CA) CBC W/AUTO [id number] 07:41:00 Test Item Value Reference Range Interpretation [...] = MDIFF) UA RFLX MICR CULT IF [id number] 10:10:00 Test Item Value Reference Range Interpretation [...] Suprapubic Pain Temperature > 100.4 FSpecimen Description: [facility] [id number] 04:13:00 Test Item Value Reference Range Interpretation [...] mg/dL 8.0-10.5 N CA) Coronavirus 2019 nCoV [id number] 22:03:00 Test Item Value Reference Range Interpretation Comments Coronavirus 2019 Negative Negative Performed b y certified nCoV 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 Negative result s do not preclude LMHN-OqQ-2istrb tion and should not be u sed as the sole basis forp atient management deci sions. Negative result s should beconsidered in the context of a patient's recent exposures,histo ry, presence of clinical sig ns and symptoms consis tentwith COVID-19. CBC W/AUTO [id number] 21:11:00 Test Item Value Reference Range Interpretation [...] MX#) 0.6 k/mm3 0.1-0.8 N BASIC METABOLIC [id number] 19:00:00 Test Item Value Reference Range Interpretation [...] POCGLU) 92 MG/DL - CT ABD PELVIS W/[id number] 00:00:00 [facility] : 1970 Sex: MName: DORA JOSEPH Castro ED : 1970 Age/S: 51 / M [address] [facility] Unit #: [id number] Loc: Eliseo Erazo [address] Phys: Marcello Benoit MD Acct: [id number] Dis Date: Status: REG ER PHONE #: Exam Date: 04/28/20211913 FAX #: Reason: epigastric and LLQ pain, R-sided colostomy EXAMS: CPT CODE: [id number] CT ABD PELVIS W/CONT 14561 PROCEDURE INFORMATION: Exam: CT Abdomen And PelvisWith [...] FSED : 1970 Age/S:51 / M [address] [facility] Unit #: [id number] Loc: Eliseo Erazo [address] Phys: Marcello Benoit MD Acct: [id number] Dis Date: Status: REG ER PHONE #: Exam Date: 04/28/20211913 FAX #: Reason: epigastric and LLQ pain, R-sided colostomy EXAMS: CPT CODE: [id number] CT ABD PELVIS W/CONT 42456 <Continued> Reproductive: Unremarkable as visualized. Bones/joints: Unremarkable. No acute fracture. Soft tissues: Unremarkable. IMPRESSION: 1. 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 2. Mild long segment bowel wall thickening/mucosal prominence compatible with an enteritis. No evidence for obstruction. at 1955 Reported and signed by: Hector Nichols M.D. CC: Marcello Benoit MD Technologist:Stephanie Albrecht, RT(R)(CT) CTDI: DLP: Trnscb Date/Time: 04/28/2021 (1955) [facility]ttK[facility] Orig Print D/T: S: 04/28/2021 (1955) PAGE 2 Signed ReportBasic Metabolic Panel (NA, K, CL, CO2, GLUCOSE, BUN, CREATININE, CA)2020-08-23 10:29:00 Test Item Value Reference Range Interpretation Comments NA (test code = 139 mmol/L 135-145 5112188032) K (test code = 4.0 mmol/L 3.5-5 2497627308) CL (test code = 108 mmol/L 98-108 0815485963) CO2 TOTAL (test code = 22 mmol/L 23-31 L 5273082508) AGAP (test code = 2-16 8876916218) BUN (test code = 25 mg/dL 7-23 H 7681269166) GLUCOSE (test code = 91 mg/dL 70-110 0625312202) CREATININE (test code = 1.14 mg/dL 0.6-1.25 0618179030) CALCIUM (test code = 8.9 mg/dL 8.6-10.6 3999832464) eGFR Calculation mL/min/1.73m2 (Non-) (test code = 5968436365) eGFR Calculation mL/min/1.73m2 () (test code = 0440215191) GILBERTO (test code = GILBERTO) Association of [...] tests). Lab Interpretation Abnormal (test code = 08040-4) [facility] CampusPROFILE / [id number] 10:13:00 Test Item Value Reference Range Interpretation Comments WBC (test code = 6690-2) See_Comment [A utomated message] The system [employer] generated this result transmit dain reference range : 4.20 - 10.70 10*3/?L. The reference range was not used to interpret this result as normal/abnormal . RBC (test code = 789-8) See_Comment L [Au tomated message] The system [facility] generated this result transmit dain reference range [...] 777-3) See_Comment [Au tomated message] The system [facility] generated this result transmit dain reference range : 150 - 328 10*3/?L. The reference range was not used to interpret this result as normal/abnormal . MPV (test code = 9.0 fL 9.8-13 L 45109-2) RDW-CV (test code = 18.7 % 12.1-15.4 H 788-0) RDW-SD (test code = 59.7 fL 38.5-51.6 H 76970-1) NRBC x10^3 (test code = <0.01 See_Comment [Au tomated message] 7493674030) The system [facility] generated this result transmit dain reference range : 10*3/?L. The reference range was not used to interpret this result as normal/abnormal . NRBC/100 WBC (test code See_Comment [Au tomated message] = 1142719521) The system [facility] generated this result transmit dain reference range : 0.0 - 10.0 /100 WBC s. The reference r meredith was not used to interpret this result as normal/abnormal . IPF % (test code = 9741413329) Lab Interpretation (test Abnormal code = 34850-2) [facility] CampusCOVID-19 (ID NOW RAPID TESTING)2020-08-23 00:56:00 Test Item Value Reference Range Interpretation Comments SARS-CoV-2 Rapid ID NOW Not Detected Not Detected (test code = 35753-3) GILBERTO (test code = GILBERTO) ID NOW COVID-19 Assay is an isothermal nucleic acid amplification test intended for the qualitative detection of nucleic acid from SARS-CoV-2 viral RNA in nasopharyngeal ([employer] CONVEYOR LOADER) specimens. It is used under Emergency Use [...] indicated. Lab Interpretation Normal (test code = 76434-8) [facility] Metabolic Panel (NA, K, CL, CO2, GLUCOSE, BUN, CREATININE, CA)2020-08-22 22:36:00 Test Item Value Reference Range Interpretation Comments NA (test code = 133 mmol/L 135-145 L 1669164468) K (test code = 4.5 mmol/L 3.5-5 7479980225) CL (test code = 104 mmol/L 98-108 9298615337) CO2 TOTAL (test code = 25 mmol/L 23-31 4071378955) AGAP (test code = 2-16 8745301981) BUN (test code = 27 mg/dL 7-23 H 3577691338) GLUCOSE (test code = 94 mg/dL 70-110 2536568102) CREATININE (test code = 1.33 mg/dL 0.6-1.25 H 2379730709) CALCIUM (test code = 9.5 mg/dL 8.6-10.6 1572152057) eGFR Calculation mL/min/1.73m2 (Non-) (test code = 5539518045) eGFR Calculation mL/min/1.73m2 () (test code = 5231493762) GILBERTO (test code = GILBERTO) Association of [...] tests). Lab Interpretation Abnormal (test code = 60282-0) [facility] CampusHepatic Function Panel (ALB, T.PRO, BILI T, BU/BC, ALT, AST, ALK PHOS)2020-08-22 22:36:00 Test Item Value Reference Range Interpretation Comments TOTAL BILI (test code = 3916063767) 0.4 mg/dL 0.1-1.1 BILI UNCON (test code = 7675888650) 0.1 mg/dL 0.1-1.1 BILI CONJ (test code = 8106879623) 0.0 mg/dL 0-0.3 T PROTEIN (test code = 3879300493) 6.8 g/dL 6.3-8.2 ALBUMIN (test code = 2830581221) 4.0 g/dL 3.5-5 ALK PHOS (test code = 3345360130) 78 U/L 34-122 ALTv (test code = 1742-6) 35 U/L 5-50 AST(SGOT) (test code = 4031946433) 29 U/L 13-40 Lab Interpretation (test code = Normal 58150-9) [facility] with [id number] 22:15:00 Test Item Value Reference Range Interpretation [...] (test code = 60.6 fL 38.5-51.6 H 84002-7) RDW-CV (test code = 19.0 % 12.1-15.4 H 788-0) PLT (test code = See_Comment [Automated 777-3) message] The sy stem which generated this result transmitted reference range : 150 - 328 10*3/ ?L. The reference r meredith was not used to interpret this result as normal/abnormal . MPV (test code = 9.3 fL 9.8-13 L 65903-5) NRBC/100 WBC (test See_Comment [Automat ed code = 7513762070) message] The system which generated this result transmitted reference range : 0.0 - 10.0 /100 WBCs. The refer ence range was not u sed to interpret th is result as normal/abnormal . NRBC x10^3 (test code <0.01 See_Comment [Auto mated = 5027425044) message] The s ystem which generated this result transmitted reference range : 10*3/?L. The reference range was not used to interpret this result as normal/abnormal . GRAN MAT (NEUT) % 58.6 % (test code = 770-8) IMM GRAN % (test code 0.60 % = 3381791058) LYMPH % (test code = 28.2 % 736-9) MONO % (test code = 9.5 % 5905-5) EOS % (test code = 2.4 % 713-8) BASO % (test code = 0.7 % 706-2) GRAN MAT x10^3(ANC) 3.14 10*3/uL 1.99-6.95 (test code = 7134396265) IMM GRAN x10^3 (test 0.03 10*3/uL 0-0.06 code = 4071218693) LYMPH x10^3 (test code 1.51 10*3/uL 1.09-3.23 = 731-0) MONO x10^3 (test code 0.51 10*3/uL 0.36-1.02 = 742-7) EOS x10^3 (test code = 0.13 10*3/uL 0.06-0.53 711-2) BASO x10^3 (test code 0.04 10*3/uL 0.01-0.09 = 704-7) Lab Interpretation Abnormal (test code = 18537-3) [facility] CampusCT SOFT TISSUE NECK W [id number] 00:47:10Impression: 1. Patent aerodigestive tract.2. No discrete [...] glands are normal. Thyroid gland is unremarkable. Legal Document Assistant spaces are normal. Buccal spaces are normal. [...] submandibular glands are normal. Thyroid gland is unremarkable.Legal Document Assistant spaces are normal. Buccal spaces are normal. [...] or abscess is identified.RL: [id number] of Report UnB[facility] FallsCOVID-19 (ID NOW RAPID TESTING)2020-07-09 23:23:00 Test Item Value Reference Range Interpretation Comments SARS-CoV-2 Rapid ID NOW Not Detected Not Detected (test code = 01139-5) GILBERTO (test code = GILBERTO) ID NOW COVID-19 Assay is an isothermal nucleic acid amplification test intended for the qualitative detection of nucleic acid from SARS-CoV-2 viral RNA in nasopharyngeal ([employer] CONVEYOR LOADER) specimens. It is used under Emergency Use [...] indicated. Lab Interpretation Normal (test code = 77359-3) [facility] CampusUrinalysis2020-11-16 23:21:00 Test Item Value Reference Range Interpretation Comments APPEARANCE (test code = Clear Clear 3539514093) COLOR (test code = Yellow Yellow 9410547722) PH (test code = 4.8-8.0 1688818071) SP GRAVITY (test code = 1.003-1.030 6744430705) GLU U QUAL (test code = Normal Normal 2759810456) BLOOD (test code = Negative Negative 2751822661) KETONES (test code = Negative Negative 1559258591) PROTEIN (test code = 30 mg/dL Negative A 2887-8) UROBILIN (test code = Normal Normal 4435487002) BILIRUBIN (test code = Negative Negative 3244749214) NITRITE (test code = Negative Negative 5601634787) LEUK ROGER (test code = Negative Negative 5934630160) RBC/HPF (test code = <1 See_Comment [Autom ated message] 5007156809) The system [employer] generated this result transmitted ref erence range: 0 - 3 HP F. The reference range was not used to int erpret this result as normal/abnormal . WBC/HPF (test code = See_Comment [Autom ated message] 5124888849) The system [employer] generated this result transmitted ref erence range: 0 - 5 HP F. The reference range was not used to int erpret this result as normal/abnormal . BACTERIA (test code = Negative Negative 2028563406) MUCOUS (test code = Moderate Negative LPF A 9231780188) HYAL CAST (test code = See_Comment H [Aut omated message] 8420239019) The system [employer] generated this result transmitted ref erence range: <=2 LPF. The reference range was not used to int erpret this result as normal/abnormal . Lab Interpretation (test Abnormal code = 36754-6) [facility] Metabolic Panel (NA, K, CL, CO2, GLUCOSE, BUN, CREATININE, CA)2020-07-09 23:20:00 Test Item Value Reference Range Interpretation Comments NA (test code = 135 mmol/L 135-145 6735017641) K (test code = 3.9 mmol/L 3.5-5 2465414592) CL (test code = 107 mmol/L 98-108 1985774997) CO2 TOTAL (test code = 20 mmol/L 23-31 L 1930605649) AGAP (test code = 2-16 1685777869) BUN (test code = 27 mg/dL 7-23 H 4474176794) GLUCOSE (test code = 86 mg/dL 70-110 9535041798) CREATININE (test code = 1.11 mg/dL 0.6-1.25 4261467545) CALCIUM (test code = 9.0 mg/dL 8.6-10.6 3952518826) eGFR Calculation mL/min/1.73m2 (Non-) (test code = 6955528954) eGFR Calculation mL/min/1.73m2 () (test code = 3103750384) GILBERTO (test code = GILBERTO) Association of [...] tests). Lab Interpretation Abnormal (test code = 23857-3) [facility] CampusRAPID STREP SCREEN FOR GROUP [id number] 23:11:00 Test Item Value Reference Range Interpretation Comments Streptococcus pyogenes (group A) Negative Negative antigen (test code = 13762-0) Lab Interpretation (test code = Normal 98651-5) [facility] with Rffzqxjopect8521-07-25 23:02:00 Test Item Value Reference Range Interpretation Comments WBC (test code = See_Comment [Automated 8190-2) message] The sy stem which [...] (test code = 55.5 fL 38.5-51.6 H 48036-8) RDW-CV (test code = 18.9 % 12.1-15.4 H 788-0) PLT (test code = See_Comment [Automated 777-3) message] The sy stem which generated this result transmitted reference range : 150 - 328 10*3/ ?L. The reference r meredith was not used to interpret this result as normal/abnormal . MPV (test code = 8.9 fL 9.8-13 L 44271-9) NRBC/100 WBC (test See_Comment [Automat ed code = 6332009187) message] The system which generated this result transmitted reference range : 0.0 - 10.0 /100 WBCs. The refer ence range was not u sed to interpret th is result as normal/abnormal . NRBC x10^3 (test code <0.01 See_Comment [Auto mated = 7962571060) message] The s ystem which generated this result transmitted reference range : 10*3/?L. The reference range was not used to interpret this result as normal/abnormal . GRAN MAT (NEUT) % 59.4 % (test code = 770-8) IMM GRAN % (test code 0.20 % = 8452959455) LYMPH % (test code = 29.9 % 736-9) MONO % (test code = 9.0 % 5905-5) EOS % (test code = 1.2 % 713-8) BASO % (test code = 0.3 % 706-2) GRAN MAT x10^3(ANC) 3.56 10*3/uL 1.99-6.95 (test code = 3365247543) IMM GRAN x10^3 (test <0.03 0-0.06 code = 9449529086) LYMPH x10^3 (test code 1.79 10*3/uL 1.09-3.23 = 731-0) MONO x10^3 (test code 0.54 10*3/uL 0.36-1.02 = 742-7) EOS x10^3 (test code = 0.07 10*3/uL 0.06-0.53 711-2) BASO x10^3 (test code <0.03 0.01-0.09 = 704-7) Lab Interpretation Abnormal (test code = 43467-1) [facility] CampusUrinalysis2020-10-13 13:37:00 Test Item Value Reference Range Interpretation Comments APPEARANCE (test code = Hazy Clear A 5262930540) COLOR (test code = Yellow Yellow 4851628238) PH (test code = 4.8-8.0 4409092708) SP GRAVITY (test code = 1.003-1.030 H 0919821596) GLU U QUAL (test code = Normal Normal 8167746220) BLOOD (test code = Negative Negative 9923129465) KETONES (test code = Negative Negative 7978201498) PROTEIN (test code = Negative Negative 2887-8) UROBILIN (test code = Normal Normal 6473962515) BILIRUBIN (test code = Negative Negative 9654957607) NITRITE (test code = Negative Negative 4070915502) LEUK ROGER (test code = Negative Negative 0822140036) RBC/HPF (test code = See_Comment H [Autom ated message] 3802506803) The system [employer] generated this result transmitted ref erence range: 0 - 3 HP F. The reference range was not used to int erpret this result as normal/abnormal . WBC/HPF (test code = See_Comment [Autom ated message] 0105546126) The system [employer] generated this result transmitted ref erence range: 0 - 5 HP F. The reference range was not used to int erpret this result as normal/abnormal . BACTERIA (test code = Negative Negative 1569467774) MUCOUS (test code = Moderate Negative LPF A 5079593908) CA OXALATE (test code = See_Comment [Au tomated message] 4671163201) The system [employer] generated this result transmitted ref erence range: <=1 HPF. The reference range was not used to int erpret this result as normal/abnormal . SPERM (test code = See_Comment H [Automat ed message] 1587440978) The system [employer] generated this result transmitted ref erence range: <=1 HPF. The reference range was not used to int erpret this result as normal/abnormal . HYAL CAST (test code = See_Comment H [Aut omated message] 4720318141) The system [employer] generated this result transmitted ref erence range: <=2 LPF. The reference range was not used to int erpret this result as normal/abnormal . Lab Interpretation (test Abnormal code = 82035-6) [facility] CampusCT ABDOMEN PELVIS W [id number] 13:22:00CT Abdomen and Pelvis with intravenous contrast. [...] infection. Left seminal vesicleshowed no significant enhancement. Nmmb, Radiant Results Inft User - 06/05/2020 8:23 AM CDTCT Abdomen and Pelvis with intravenous contrast.CLINICAL HISTORY: Abdominal infection including peritonitis.DOSE: Up-to-date CT equipment and radiation dose reduction [...] and Spleen: No focal lesions detected in theliver or inthe spleen. Gallbladder is collapsed with [...] Normal.Retroperitoneum: No abnormal fluid or lymphadenopathy.Bowel: Ileostomy notedon the right side. Rectum and lower portion of thesigmoid noted with normal-appearing Aaron's pouch.Some of the small bowel loops are dilated which could be ileus.Bladder and Reproductive Organs: Thickened bladder lindsey could be due toincomplete luminal distention.Bones: Benign lesion in L4. Bone is land in the neck of the right femur.Soft tissues: Unremarkable.CONCLUSION:1. Evidence of large bowelresection. Smith's pouch appears normal.Minimally congested mesenteric fat noted with minimal fluid in the rightparacolic gutter.2. Small amount of fluid along with scar tissue suspected surrounding t heliver and spleen in the upper abdomen. Minimal left pleural effusion.Pigtail catheter in the rightanterior abdominal good position.3. Functioning right-sided ileostomy.4. Enlarged prostate with central zone calcifications. Diffuse moderateenhancement of the right seminal vesicle noted which is unusual and ofunknown etiology. It could be a sign of infection. Left seminal vesicleshowed no significant enhancement.[facility] CampusTroponin I 2020-06-05 12:40:00 Test Item Value Reference Range Interpretation Comments TROPONIN I (test <0.012 See_Comment [Automated code = 3449276704) message] The system which generated this result [...] ? Lab Interpretation Normal (test code = 93269-4) [facility] Metabolic Panel (NA, K, CL, CO2, GLUCOSE, BUN, CREATININE, CA)2020-06-05 12:28:00 Test Item Value Reference Range Interpretation Comments NA (test code = 139 mmol/L 135-145 8415647313) K (test code = 4.4 mmol/L 3.5-5 2360664468) CL (test code = 112 mmol/L 98-108 H 1124877043) CO2 TOTAL (test code = 24 mmol/L 23-31 5792366791) AGAP (test code = 2-16 2597574996) BUN (test code = 23 mg/dL 7-23 7947192511) GLUCOSE (test code = 88 mg/dL 70-110 2297310656) CREATININE (test code = 0.96 mg/dL 0.6-1.25 0890254776) CALCIUM (test code = 9.5 mg/dL 8.6-10.6 1822551206) eGFR Calculation mL/min/1.73m2 (Non-) (test code = 4854261023) eGFR Calculation mL/min/1.73m2 () (test code = 6961531203) GILBERTO (test code = GILBERTO) Association of [...] tests). Lab Interpretation Abnormal (test code = 64271-5) [facility] CampusHepatic Function Panel (ALB, T.PRO, BILI T, BU/BC, ALT, AST, ALK PHOS)2020-06-05 12:28:00 Test Item Value Reference Range Interpretation Comments TOTAL BILI (test code = 8299094612) 0.5 mg/dL 0.1-1.1 BILI UNCON (test code = 6184018571) 0.3 mg/dL 0.1-1.1 BILI CONJ (test code = 7027044266) 0.0 mg/dL 0-0.3 T PROTEIN (test code = 3673009253) 6.6 g/dL 6.3-8.2 ALBUMIN (test code = 6373277290) 3.7 g/dL 3.5-5 ALK PHOS (test code = 8427748095) 79 U/L 34-122 ALTv (test code = 1742-6) 23 U/L 5-50 AST(SGOT) (test code = 9629944882) 27 U/L 13-40 Lab Interpretation (test code = Normal 53223-2) [facility] CampusLipase [id number] 12:28:00 Test Item Value Reference Range Interpretation Comments LIPASE (test code = 5966002198) 150 U/L 0-220 Lab Interpretation (test code = Normal 70441-5) [facility] CampusCBC with [id number] 12:11:00 Test Item Value Reference Range Interpretation Comments WBC (test code = See_Comment [Automated 5290-2) message] The sy stem which generated this [...] (test code = 62.2 fL 38.5-51.6 H 54039-0) RDW-CV (test code = 20.0 % 12.1-15.4 H 788-0) PLT (test code = See_Comment [Automated 777-3) message] The sy stem which generated this result transmitted reference range : 150 - 328 10*3/ ?L. The reference r meredith was not used to interpret this result as normal/abnormal . MPV (test code = 10.0 fL 9.8-13 59405-9) NRBC/100 WBC (test See_Comment [Automat ed code = 9386856358) message] The system which generated this result transmitted reference range : 0.0 - 10.0 /100 WBCs. The refer ence range was not u sed to interpret th is result as normal/abnormal . NRBC x10^3 (test code <0.01 See_Comment [Auto mated = 8448379928) message] The s ystem which generated this result transmitted reference range : 10*3/?L. The reference range was not used to interpret this result as normal/abnormal . GRAN MAT (NEUT) % 65.7 % (test code = 770-8) IMM GRAN % (test code 0.30 % = 0679727055) LYMPH % (test code = 21.2 % 736-9) MONO % (test code = 10.0 % 5905-5) EOS % (test code = 2.3 % 713-8) BASO % (test code = 0.5 % 706-2) GRAN MAT x10^3(ANC) 3.99 10*3/uL 1.99-6.95 (test code = 5223047762) IMM GRAN x10^3 (test <0.03 0-0.06 code = 4846431448) LYMPH x10^3 (test code 1.29 10*3/uL 1.09-3.23 = 731-0) MONO x10^3 (test code 0.61 10*3/uL 0.36-1.02 = 742-7) EOS x10^3 (test code = 0.14 10*3/uL 0.06-0.53 711-2) BASO x10^3 (test code 0.03 10*3/uL 0.01-0.09 = 704-7) Lab Interpretation Abnormal (test code = 43346-7) [facility] CampusLactic Acid Whole [id number] 12:04:00 Test Item Value Reference Range Interpretation Comments LACTIC ACID (test code = 1.23 mmol/L 9646973094) [facility] CampusIR ABSCESS DRAIN [id number] 14:57:23 Successful abscessogram demonstrated unchanged position of [...] present inthe room during the entire procedure. Sadiq Damon MD., have reviewed this study and [...] consentwas obtained. Prior to beginning the procedure, Marshall Protocol was usedtoconfirm the patient's identity and planned procedure. Maximum sterilebarriers including cap, mask, momin nd hygiene, sterile gloves, sterile gown,large sterile drape and cutaneous antisepsis were used. Theskin overlying the existing drainage catheter in the right upperquadrant of the abdomen was sterilely prepped, draped and infiltrated with1 percent lidocaine. A softwood faller image was documented prior to the injection [...] drainage catheter and with questionablefistulization to bowel. [facility], Radiant Results Inft User - [...] consentwas obtained. Prior to beginning the procedure, Marshall Protocol was usedto confirm the patient's identity and planned procedure. Maximum sterilebarriers including cap, mask, hand hygiene, sterile gloves, sterile gown,large sterile drape and cutaneous antisepsis were used. The skin overlying the existing drainage catheter in the right upperquadrant of the abdomen was sterilely prepped, draped and infiltrated with1 percent lidocaine. A softwood faller image was documented prior to the injection [...] [facility] CampusBAS[facility] METABOLIC PANEL (NA, K, CL, CO2, GLUCOSE, BUN, CREATININE, CA)2020-05-31 08:13:00 Test Item Value Reference Range Interpretation Comments NA (test code = 135 mmol/L 135-145 4046622524) K (test code = 4.1 mmol/L 3.5-5 7027315752) CL (test code = 99 mmol/L 98-108 0536466122) CO2 TOTAL (test code = 32 mmol/L 23-31 H 9785506826) AGAP (test code = 2-16 6989642308) BUN (test code = 14 mg/dL 7-23 0282411258) GLUCOSE (test code = 89 mg/dL 70-110 1074369692) CREATININE (test code = 0.67 mg/dL 0.6-1.25 5941704988) CALCIUM (test code = 8.2 mg/dL 8.6-10.6 L 5114753230) eGFR Calculation mL/min/1.73m2 (Non-) (test code = 8354525471) eGFR Calculation mL/min/1.73m2 () (test code = 7551963764) GILBERTO (test code = GILBERTO) Association of [...] tests). Lab Interpretation Abnormal (test code = 25809-5) [facility] CampusMAGNESIUM2020-10-08 08:13:00 Test Item Value Reference Range Interpretation Comments MAGNESIUM (test code = 5837699279) 1.8 mg/dL 1.7-2.4 Lab Interpretation (test code = Normal 50369-1) [facility] CampusPHOSPHORUS2020-10-08 08:13:00 Test Item Value Reference Range Interpretation Comments PHOSPHORUS (test code = 2778900149) 5.2 mg/dL 2.5-5 H Lab Interpretation (test code = Abnormal 00955-6) [facility] CampusCB WITH [id number] 08:05:00 Test Item Value Reference Range Interpretation [...] (test code = 57.9 fL 38.5-51.6 H 93150-8) RDW-CV (test code = 18.7 % 12.1-15.4 H 788-0) PLT (test code = See_Comment [Automated 777-3) message] The sy stem which generated this result transmitted reference range : 150 - 328 10*3/ ?L. The reference r meredith was not used to interpret this result as normal/abnormal . MPV (test code = 10.3 fL 9.8-13 81133-7) NRBC/100 WBC (test See_Comment [Automat ed code = 1578900926) message] The system which generated this result transmitted reference range : 0.0 - 10.0 /100 WBCs. The refer ence range was not u sed to interpret th is result as normal/abnormal . NRBC x10^3 (test code <0.01 See_Comment [Auto mated = 3456071287) message] The s ystem which generated this result transmitted reference range : 10*3/?L. The reference range was not used to interpret this result as normal/abnormal . GRAN MAT (NEUT) % 56.4 % (test code = 770-8) IMM GRAN % (test code 0.50 % = 0244835574) LYMPH % (test code = 26.2 % 736-9) MONO % (test code = 12.2 % 5905-5) EOS % (test code = 4.2 % 713-8) BASO % (test code = 0.5 % 706-2) GRAN MAT x10^3(ANC) 2.31 10*3/uL 1.99-6.95 (test code = 0127224444) IMM GRAN x10^3 (test <0.03 0-0.06 code = 1722817183) LYMPH x10^3 (test code 1.07 10*3/uL 1.09-3.23 L = 731-0) MONO x10^3 (test code 0.50 10*3/uL 0.36-1.02 = 742-7) EOS x10^3 (test code = 0.17 10*3/uL 0.06-0.53 711-2) BASO x10^3 (test code <0.03 0.01-0.09 = 704-7) Lab Interpretation Abnormal (test code = 80840-1) [facility] METABOLIC PANEL (NA, K, CL, CO2, GLUCOSE, BUN, CREATININE, CA)2020-05-30 09:04:00 Test Item Value Reference Range Interpretation Comments NA (test code = 138 mmol/L 135-145 1755494932) K (test code = 4.4 mmol/L 3.5-5 3938716607) CL (test code = 99 mmol/L 98-108 8596379507) CO2 TOTAL (test code = 33 mmol/L 23-31 H 5113785591) AGAP (test code = 2-16 5374231907) BUN (test code = 18 mg/dL 7-23 0655758443) GLUCOSE (test code = 86 mg/dL 70-110 2052365778) CREATININE (test code = 0.61 mg/dL 0.6-1.25 4629859871) CALCIUM (test code = 8.1 mg/dL 8.6-10.6 L 3295479381) eGFR Calculation mL/min/1.73m2 (Non-) (test code = 6354768737) eGFR Calculation mL/min/1.73m2 () (test code = 9146245180) GILBERTO (test code = GILBERTO) Association of [...] tests). Lab Interpretation Abnormal (test code = 20060-9) [facility]MAGN[facility]IUM2020-10-07 09:04:00 Test Item Value Reference Range Interpretation Comments MAGNESIUM (test code = 1249666188) 2.0 mg/dL 1.7-2.4 Lab Interpretation (test code = Normal 79008-5) [facility] CampusPHOSPHORUS2020-10-07 09:04:00 Test Item Value Reference Range Interpretation Comments PHOSPHORUS (test code = 8093473438) 4.6 mg/dL 2.5-5 Lab Interpretation (test code = Normal 45446-8) [facility] CampusBASI METABOLIC PANEL (NA, K, CL, CO2, GLUCOSE, BUN, CREATININE, CA)2020-05-29 07:31:00 Test Item Value Reference Range Interpretation Comments NA (test code = 135 mmol/L 135-145 4364886801) K (test code = 4.0 mmol/L 3.5-5 6123135148) CL (test code = 100 mmol/L 98-108 6407667895) CO2 TOTAL (test code = 32 mmol/L 23-31 H 8096970887) AGAP (test code = 2-16 9686760387) BUN (test code = 19 mg/dL 7-23 0266016328) GLUCOSE (test code = 86 mg/dL 70-110 0364786194) CREATININE (test code = 0.68 mg/dL 0.6-1.25 6457824598) CALCIUM (test code = 8.0 mg/dL 8.6-10.6 L 4945743919) eGFR Calculation mL/min/1.73m2 (Non-) (test code = 3164301475) eGFR Calculation mL/min/1.73m2 () (test code = 6084763432) GILBERTO (test code = GILBERTO) Association of [...] tests). Lab Interpretation Abnormal (test code = 04205-1) [facility]MAG[facility]UM2020-10-06 07:31:00 Test Item Value Reference Range Interpretation Comments MAGNESIUM (test code = 1256843157) 1.6 mg/dL 1.7-2.4 L Lab Interpretation (test code = Abnormal 07002-8) [facility]PHOS[facility]ORUS2020-10-06 07:31:00 Test Item Value Reference Range Interpretation Comments PHOSPHORUS (test code = 2849083651) 3.5 mg/dL 2.5-5 Lab Interpretation (test code = Normal 72734-5) [facility] CampusASPIRATE OR ABSCESS CULTURE(AEROBIC/ANAEROBIC) 2020-05-28 12:35:00 Test Item Value Reference Range Interpretation Comments Aspirate or Abscess No aerobic/anaerobic Culture (test code = organisms isolated 83065-4) Gram stain (test code Occasional (Rare) = 664-3) Mononuclear cells [facility] CampusBASIC METABOLIC PANEL (NA, K, CL, CO2, GLUCOSE, BUN, CREATININE, CA)2020-05-28 09:36:00 Test Item Value Reference Range Interpretation Comments NA (test code = 136 mmol/L 135-145 5825597026) K (test code = 4.3 mmol/L 3.5-5 3550772701) CL (test code = 102 mmol/L 98-108 6059763554) CO2 TOTAL (test code = 31 mmol/L 23-31 5446290569) AGAP (test code = 2-16 1724994981) BUN (test code = 25 mg/dL 7-23 H 1487400771) GLUCOSE (test code = 87 mg/dL 70-110 6558537061) CREATININE (test code = 0.65 mg/dL 0.6-1.25 9815388923) CALCIUM (test code = 8.2 mg/dL 8.6-10.6 L 4700611258) eGFR Calculation mL/min/1.73m2 (Non-) (test code = 9515289628) eGFR Calculation mL/min/1.73m2 () (test code = 8754043330) GILBERTO (test code = GILBERTO) Association of [...] tests). Lab Interpretation Abnormal (test code = 61482-9) [facility]MAG[facility]IUM2020-10-05 09:36:00 Test Item Value Reference Range Interpretation Comments MAGNESIUM (test code = 7621521420) 1.6 mg/dL 1.7-2.4 L Lab Interpretation (test code = Abnormal 52082-8) [facility]PHOS[facility]ORUS2020-10-05 09:36:00 Test Item Value Reference Range Interpretation Comments PHOSPHORUS (test code = 2468869887) 2.6 mg/dL 2.5-5 Lab Interpretation (test code = Normal 21298-2) [facility] (NA, K, CL, CO2, GLUCOSE, BUN, CREATININE, CA)2020-05-27 10:13:00 Test Item Value Reference Range Interpretation Comments NA (test code = 135 mmol/L 135-145 8912487867) K (test code = 3.9 mmol/L 3.5-5 4269549565) CL (test code = 103 mmol/L 98-108 1030967934) CO2 TOTAL (test code = 28 mmol/L 23-31 6439393727) AGAP (test code = 2-16 6415121601) BUN (test code = 20 mg/dL 7-23 1171741662) GLUCOSE (test code = 95 mg/dL 70-110 3153025517) CREATININE (test code = 0.67 mg/dL 0.6-1.25 5943411467) CALCIUM (test code = 8.2 mg/dL 8.6-10.6 L 8599569605) eGFR Calculation mL/min/1.73m2 (Non-) (test code = 4905263973) eGFR Calculation mL/min/1.73m2 () (test code = 0604935278) GILBERTO (test code = GILBERTO) Association of [...] tests). Lab Interpretation Abnormal (test code = 58341-5) [facility]MAG[facility]2020-10-04 10:13:00 Test Item Value Reference Range Interpretation Comments MAGNESIUM (test code = 8531745976) 1.5 mg/dL 1.7-2.4 L Lab Interpretation (test code = Abnormal 74111-2) [facility]PHOS[facility]ORUS2020-10-04 10:13:00 Test Item Value Reference Range Interpretation Comments PHOSPHORUS (test code = 4303350422) 3.4 mg/dL 2.5-5 Lab Interpretation (test code = Normal 21031-6) [facility] CampusIR CHANGE OF ABSCESS [id number] 17:06:27 Successful removal of the left upper quadrant drainage catheter. Replacement of the right upper quadrant catheter into the most superiorsegment of the collection with a new 10 Algerian pigtail catheter.PLAN: This tube should be flushed with 10 of saline twice a day. ?We willcontinue to monitor the output of the catheter while the patient isin-house. If the patient is discharged prior to catheter removal, follow-upwith VIR is recommended in 7-10 ?days. This can be arranged by [id number]. Preliminary Report Dictated by Resident: Johnny Tilley [...] from those actually performing theprocedure. Please see [facility] for sedation time. RADIATION DOSE: 33.0 mGy. TECHNIQUE: The risks, benefits and alternativeswere discussed and informed consentwas obtained. Prior to beginning the procedure, Marshall Protocol was usedto confirm the patient's identity [...] of the pigtailcatheters within the respective collections. [facility], Radiant Results Inft User - 05/26/2020 12:07 PM CDTEXAMINATION: 1. PERCUTANEOUS PERIHEPATIC DRAINAGE REPLACEMENT2. LEFT UPPER QUADRANT DRAINAGE REMOVAL.HISTORY: 50 years-old; Male; abscess ATTENDEES: Attending radiologist: Nixon Perez; Resident: Dr. Johnny Tilley;Contributing VIR Fellow: Dr. Vance Stafford.SEDATION: Moderate sedation was administered under the attendingphysician's direction and continuous monitoring by a trained nursespecialist who was independent from those actually performing theprocedure. Please see [facility] for sedation time.RADIATION DOSE: 33.0 mGy.TECHNIQUE: The risks, benefits andalternatives were discussed and informed consentwas obtained. Prior to beginning the procedure, Marshall Protocol was usedto confirm the patient's identity [...] of the collection with a new 10 Algerian pigtail catheter.PLAN: This tube should be flushed with 10 of saline twice a day. We willcontinue to monitor the output of the catheter while the patient isin-house. If the patient is discharged prior to catheter removal, follow-upwith VIR is recommended in 7-10 days. This can be arranged by [id number].Preliminary Report Dictated by Resident: Johnny Benitez, as teaching physician, was present during the entire procedure and/orduring the botello components.Nixon Damon MD., have reviewed this study and agree with theabove report.[facility] CampusIR ASPIRATION ABSCESS BULLA OR CYST BY [id number] 17:06:16 Successful ultrasound-guided aspiration of intrahepatic small [...] consentwas obtained. Prior to beginning the procedure, Marshall Protocol was usedto confirm the patient's identity and planned procedure. Maximum sterilebarriers including cap, mask, hand hygiene, sterile gloves, sterile gown,large sterile drape and cutaneous antisepsis were used. The skin overlying the right mid abdomen was sterilely prepped, draped andinfiltrated with 1percent lidocaine. The targeted infrahepatic small collection was then accessed with [id number] micropuncture needle using imaging guidance which includedultrasound. The fluid collection was carefully aspirated. A steriledressing was applied. A sample of the fluid was sent for culture ESTIMATED BLOOD LOSS: Minimal. DISCHARGED TO: Recovery and then to inpatient unit. CONDITION: Stable. FINDINGS: Ultrasound imaging of the infrahepatic area demonstrated a very smallanechoic fluid collection. 1 mL yellowviscous-appearing fluid wasaspirated. [facility], Radiant Results Inft User - 05/26/2020 12:07 PM CDTEXAMINATION: IMAGE GUIDED PERCUTANEOUS INFRAHEPATIC FLUID COLLECTIONASPIRATIONHISTORY: 50 years-old; Male;peritoneal abscess.ATTENDEES: Attending radiologist: Nixon Perez; Resident: Dr. Johnny Tilley;Contributing VIR Fellow: Dr. Vance Stafford.SEDATION: No moderate sedation was utilized for this procedure.TECHNIQUE: The risks, benefits and alternatives were discussed and informed consentwas obtained. Prior to beginning the procedure, Marshall Protocol was usedto confirm the patient's identity and planned procedure. Maximum sterilebarriers including cap, mask, hand hygiene, sterile gloves, sterile gown,large sterile drape and cutaneous antisepsis were used. The skin overlying the right mid abdomen was sterilely prepped, draped andinfiltrated with 1 percent lidocaine. The targeted infrahepatic small collection was then accessed with [id number] micropuncture needle using imaging guidance which includ [...] reviewed this study and agree with theabove report.[facility] (NA, K, CL, CO2, GLUCOSE, BUN, CREATININE, CA) 2020-05-26 10:13:00 Test Item Value Reference Range Interpretation Comments NA (test code = 135 mmol/L 135-145 0429101982) K (test code = 4.4 mmol/L 3.5-5 6015154525) CL (test code = 107 mmol/L 98-108 2469279439) CO2 TOTAL (test code = 23 mmol/L 23-31 6652075485) AGAP (test code = 2-16 8017650770) BUN (test code = 18 mg/dL 7-23 4322738736) GLUCOSE (test code = 101 mg/dL 70-110 5719484284) CREATININE (test code = 0.61 mg/dL 0.6-1.25 7169676313) CALCIUM (test code = 8.1 mg/dL 8.6-10.6 L 4083006575) eGFR Calculation mL/min/1.73m2 (Non-) (test code = 1463930799) eGFR Calculation mL/min/1.73m2 () (test code = 8091507414) GILBERTO (test code = GILBERTO) Association of [...] tests). Lab Interpretation Abnormal (test code = 47936-9) [facility]2020-10-03 10:13:00 Test Item Value Reference Range Interpretation Comments MAGNESIUM (test code = 6398937456) 1.7 mg/dL 1.7-2.4 Lab Interpretation (test code = Normal 15916-3) [facility]PH[facility]2020-10-03 10:13:00 Test Item Value Reference Range Interpretation Comments PHOSPHORUS (test code = 8771339050) 3.4 mg/dL 2.5-5 Lab Interpretation (test code = Normal 41783-2) [facility] CampusXR [id number] 23:20:33 Positioning dictated draining the right upper [...] reviewed this study and agree with theabove report.[facility]BASIC METABOLIC PANEL (NA, K, CL, CO2, GLUCOSE, BUN, CREATININE, CA)2020-05-25 22:49:00 Test Item Value Reference Range Interpretation Comments NA (test code = 136 mmol/L 135-145 6623097044) K (test code = 4.5 mmol/L 3.5-5 2081888458) CL (test code = 105 mmol/L 98-108 4207890993) CO2 TOTAL (test code = 22 mmol/L 23-31 L 6692171522) AGAP (test code = 2-16 6019836295) BUN (test code = 24 mg/dL 7-23 H 8368159646) GLUCOSE (test code = 101 mg/dL 70-110 6701859392) CREATININE (test code = 0.74 mg/dL 0.6-1.25 0742368883) CALCIUM (test code = 8.6 mg/dL 8.6-10.6 4101731210) eGFR Calculation mL/min/1.73m2 (Non-) (test code = 9057106135) eGFR Calculation mL/min/1.73m2 () (test code = 2316016324) GILBERTO (test code = GILBERTO) Association of [...] tests). Lab Interpretation Abnormal (test code = 18247-1) [facility]00 Test Item Value Reference Range Interpretation Comments MAGNESIUM (test code = 7078902713) 2.0 mg/dL 1.7-2.4 Lab Interpretation (test code = Normal 70288-1) [facility]PH[facility]2020-10-02 22:11:00 Test Item Value Reference Range Interpretation Comments PHOSPHORUS (test code = 5920944387) 3.1 mg/dL 2.5-5 Lab Interpretation (test code = Normal 62342-0) [facility] CampusCB WITH [id number] 21:51:00 Test Item Value Reference Range Interpretation [...] (test code = 53.1 fL 38.5-51.6 H 27327-9) RDW-CV (test code = 17.9 % 12.1-15.4 H 788-0) PLT (test code = See_Comment [Automated 777-3) message] The sy stem which generated this result transmitted reference range : 150 - 328 10*3/ ?L. The reference r meredith was not used to interpret this result as normal/abnormal . MPV (test code = 9.1 fL 9.8-13 L 67207-2) NRBC/100 WBC (test See_Comment [Automat ed code = 1647355907) message] The system which generated this result transmitted reference range : 0.0 - 10.0 /100 WBCs. The refer ence range was not u sed to interpret th is result as normal/abnormal . NRBC x10^3 (test code <0.01 See_Comment [Auto mated = 0509292273) message] The s ystem which generated this result transmitted reference range : 10*3/?L. The reference range was not used to interpret this result as normal/abnormal . GRAN MAT (NEUT) % 73.4 % (test code = 770-8) IMM GRAN % (test code 0.50 % = 0931645572) LYMPH % (test code = 17.9 % 736-9) MONO % (test code = 5.2 % 5905-5) EOS % (test code = 2.5 % 713-8) BASO % (test code = 0.5 % 706-2) GRAN MAT x10^3(ANC) 4.05 10*3/uL 1.99-6.95 (test code = 8541203868) IMM GRAN x10^3 (test 0.03 10*3/uL 0-0.06 code = 9196605648) LYMPH x10^3 (test code 0.99 10*3/uL 1.09-3.23 L = 731-0) MONO x10^3 (test code 0.29 10*3/uL 0.36-1.02 L = 742-7) EOS x10^3 (test code = 0.14 10*3/uL 0.06-0.53 711-2) BASO x10^3 (test code 0.03 10*3/uL 0.01-0.09 = 704-7) Lab Interpretation Abnormal (test code = 13705-7) [facility] METABOLIC PANEL (NA, K, CL, CO2, GLUCOSE, BUN, CREATININE, CA)2020-05-25 09:24:00 Test Item Value Reference Range Interpretation Comments NA (test code = 135 mmol/L 135-145 9572293968) K (test code = 5.3 mmol/L 3.5-5 H Slight 4519104697) hemolysis CL (test code = 104 mmol/L 98-108 4820051315) CO2 TOTAL (test code 24 mmol/L 23-31 = 2912297823) AGAP (test code = 2-16 1390795031) BUN (test code = 22 mg/dL 7-23 Slight 3534957138) hemolysis GLUCOSE (test code = 96 mg/dL 70-110 9427595457) CREATININE (test code 0.73 mg/dL 0.6-1.25 = 9777857697) CALCIUM (test code = 8.2 mg/dL 8.6-10.6 L 6657891831) eGFR Calculation mL/min/1.73m2 (Non-) (test code = 9740723145) eGFR Calculation mL/min/1.73m2 () (test code = 6669824781) GILBERTO (test code = GILBERTO) Association of [...] tests). Lab Interpretation Abnormal (test code = 28146-5) [facility]2020-10-02 09:24:00 Test Item Value Reference Range Interpretation Comments MAGNESIUM (test code = 8835417371) 2.3 mg/dL 1.7-2.4 Lab Interpretation (test code = Normal 59001-6) [facility]2020-10-02 09:24:00 Test Item Value Reference Range Interpretation Comments PHOSPHORUS (test code = 2522140485) 3.4 mg/dL 2.5-5 Lab Interpretation (test code = Normal 67346-2) [facility] (NA, K, CL, CO2, GLUCOSE, BUN, CREATININE, CA)2020-05-24 21:00:00 Test Item Value Reference Range Interpretation Comments NA (test code = 135 mmol/L 135-145 5695140338) K (test code = 4.3 mmol/L 3.5-5 5554975253) CL (test code = 102 mmol/L 98-108 6989964474) CO2 TOTAL (test code = 25 mmol/L 23-31 4569683931) AGAP (test code = 2-16 5664683450) BUN (test code = 20 mg/dL 7-23 4034364644) GLUCOSE (test code = 102 mg/dL 70-110 5706305883) CREATININE (test code 0.97 mg/dL 0.6-1.25 = 3113852441) CALCIUM (test code = 9.0 mg/dL 8.6-10.6 2585888580) eGFR Calculation mL/min/1.73m2 (Non-) (test code = 5652296835) eGFR Calculation mL/min/1.73m2 () (test code = 5783569325) GILBERTO (test code = GILBERTO) Association of [...] or urine or abnormalities in imaging tests). [facility]2020-10-01 21:00:00 Test Item Value Reference Range Interpretation Comments MAGNESIUM (test code = 2300867880) 1.5 mg/dL 1.7-2.4 L Lab Interpretation (test code = Abnormal 74459-7) [facility]OS[facility]US2020-10-01 20:58:00 Test Item Value Reference Range Interpretation Comments PHOSPHORUS (test code = 0807318008) 3.3 mg/dL 2.5-5 Lab Interpretation (test code = Normal 46184-0) [facility]CB with Xkowudmveyka8633-47-01 11:31:00 Test Item Value Reference Range Interpretation [...] (test code = 51.9 fL 38.5-51.6 H 29518-2) RDW-CV (test code = 17.6 % 12.1-15.4 H 788-0) PLT (test code = See_Comment H [Automated 777-3) message] The sy stem which generated this result transmitted reference range : 150 - 328 10*3/ ?L. The reference r meredith was not used to interpret this result as normal/abnormal . MPV (test code = 9.0 fL 9.8-13 L 31567-6) NRBC/100 WBC (test See_Comment [Automat ed code = 3152779186) message] The system which generated this result transmitted reference range : 0.0 - 10.0 /100 WBCs. The refer ence range was not u sed to interpret th is result as normal/abnormal . NRBC x10^3 (test code <0.01 See_Comment [Auto mated = 1820183784) message] The s ystem which generated this result transmitted reference range : 10*3/?L. The reference range was not used to interpret this result as normal/abnormal . GRAN MAT (NEUT) % 66.0 % (test code = 770-8) IMM GRAN % (test code 0.20 % = 2323836507) LYMPH % (test code = 20.3 % 736-9) MONO % (test code = 10.4 % 5905-5) EOS % (test code = 2.6 % 713-8) BASO % (test code = 0.5 % 706-2) GRAN MAT x10^3(ANC) 4.33 10*3/uL 1.99-6.95 (test code = 7888365180) IMM GRAN x10^3 (test <0.03 0-0.06 code = 4174290403) LYMPH x10^3 (test code 1.33 10*3/uL 1.09-3.23 = 731-0) MONO x10^3 (test code 0.68 10*3/uL 0.36-1.02 = 742-7) EOS x10^3 (test code = 0.17 10*3/uL 0.06-0.53 711-2) BASO x10^3 (test code 0.03 10*3/uL 0.01-0.09 = 704-7) Lab Interpretation Abnormal (test code = 52744-4) [facility] CampusCT ABDOMEN PELVIS W [id number] 17:39:05 Since 05/19/2020 slight increase in size [...] perihepatic are unchanged with drains insitu as above.[facility] Metabolic Panel (NA, K, CL, CO2, Glucose, BUN, Creatinine, CA)2020-05-23 10:25:00 Test Item Value Reference Range Interpretation Comments NA (test code = 135 mmol/L 135-145 3627155542) K (test code = 3.7 mmol/L 3.5-5 9499781819) CL (test code = 105 mmol/L 98-108 4008801963) CO2 TOTAL (test code = 24 mmol/L 23-31 2970713678) AGAP (test code = 2-16 8713830407) BUN (test code = 19 mg/dL 7-23 1545331242) GLUCOSE (test code = 117 mg/dL 70-110 H 9008105051) CREATININE (test code = 0.74 mg/dL 0.6-1.25 7139131916) CALCIUM (test code = 7.3 mg/dL 8.6-10.6 L 0007057268) eGFR Calculation mL/min/1.73m2 (Non-) (test code = 5839496198) eGFR Calculation mL/min/1.73m2 () (test code = 0216431039) GILBERTO (test code = GILBERTO) Association of [...] tests). Lab Interpretation Abnormal (test code = 29327-5) [facility] CampusCORONAVIRUS COVID-19 [id number] 07:40:00 Test Item Value Reference Range Interpretation Comments SARS-CoV-2 Rapid ID NOW Not Detected Not Detected (test code = 98818-7) GILBERTO (test code = GILBERTO) ID NOW COVID-19 Assay is an isothermal nucleic acid amplification test intended for the qualitative detection of nucleic acid from SARS-CoV-2 viral RNA in nasopharyngeal ([employer]) specimens. It is used under Emergency Use [...] indicated. Lab Interpretation Normal (test code = 19741-8) [facility] CampusUrinalysis2020-09-29 22:41:00 Test Item Value Reference Range Interpretation Comments APPEARANCE (test code = Hazy Clear A 2217185474) COLOR (test code = Yellow Yellow 7688927765) PH (test code = 4.8-8.0 8374369707) SP GRAVITY (test code = 1.003-1.030 2618579135) GLU U QUAL (test code = Normal Normal 8925761172) BLOOD (test code = Negative Negative 1795477439) KETONES (test code = Negative Negative 9127243115) PROTEIN (test code = 30 mg/dL Negative A 2887-8) UROBILIN (test code = Normal Normal 8182949122) BILIRUBIN (test code = Negative Negative 1649776480) NITRITE (test code = Negative Negative 9015850933) LEUK ROGER (test code = Negative Negative 7024978963) RBC/HPF (test code = See_Comment H [Autom ated message] 8148692826) The system [employer] generated this result transmitted ref erence range: 0 - 3 HP F. The reference range was not used to int erpret this result as normal/abnormal . WBC/HPF (test code = See_Comment H [Autom ated message] 7566141511) The system [employer] generated this result transmitted ref erence range: 0 - 5 HP F. The reference range was not used to int erpret this result as normal/abnormal . BACTERIA (test code = Negative Negative 8771643007) MUCOUS (test code = Moderate Negative LPF A 9669981561) SQ EPITH (test code = See_Comment [Auto mated message] 5261694659) The system [employer] generated this result transmitted ref erence range: <=2 HPF. The reference range was not used to int erpret this result as normal/abnormal . CA OXALATE (test code = See_Comment H [Au tomated message] 3547077562) The system [employer] generated this result transmitted ref erence range: <=1 HPF. The reference range was not used to int erpret this result as normal/abnormal . HYAL CAST (test code = See_Comment ListRunner [Aut omated message] 7263977996) The system [employer] generated this result transmitted ref erence range: <=2 LPF. The reference range was not used to int erpret this result as normal/abnormal . Lab Interpretation (test Abnormal code = 79323-3) [facility] Metabolic Panel (NA, K, CL, CO2, GLUCOSE, BUN, CREATININE, CA)2020-05-22 21:46:00 Test Item Value Reference Range Interpretation Comments NA (test code = 134 mmol/L 135-145 L 8759768477) K (test code = 5.0 mmol/L 3.5-5 9248202750) CL (test code = 103 mmol/L 98-108 7607932842) CO2 TOTAL (test code = 25 mmol/L 23-31 3377608832) AGAP (test code = 2-16 6037291728) BUN (test code = 24 mg/dL 7-23 H 0274124484) GLUCOSE (test code = 102 mg/dL 70-110 7071686140) CREATININE (test code = 0.87 mg/dL 0.6-1.25 6478614843) CALCIUM (test code = 9.2 mg/dL 8.6-10.6 1254967972) eGFR Calculation mL/min/1.73m2 (Non-) (test code = 0952573261) eGFR Calculation mL/min/1.73m2 () (test code = 5916632909) GILBERTO (test code = GILBERTO) Association of [...] tests). Lab Interpretation Abnormal (test code = 31545-8) [facility] CampusHepatic Function Panel (ALB, T.PRO, BILI T, BU/BC, ALT, AST, ALK PHOS)2020-05-22 21:46:00 Test Item Value Reference Range Interpretation Comments TOTAL BILI (test code = 4983967811) 0.4 mg/dL 0.1-1.1 BILI UNCON (test code = 6938045615) 0.2 mg/dL 0.1-1.1 BILI CONJ (test code = 2131725391) 0.0 mg/dL 0-0.3 T PROTEIN (test code = 4561021142) 6.5 g/dL 6.3-8.2 ALBUMIN (test code = 7443704089) 3.6 g/dL 3.5-5 ALK PHOS (test code = 8657123120) 96 U/L 34-122 ALTv (test code = 1742-6) 22 U/L 5-50 AST(SGOT) (test code = 8897163600) 28 U/L 13-40 Lab Interpretation (test code = Normal 13709-0) [facility] CampusLipase Adcjv3623-28-58 21:46:00 Test Item Value Reference Range Interpretation Comments LIPASE (test code = 0428496909) 95 U/L 0-220 Lab Interpretation (test code = Normal 29761-3) [facility] CampusaPTT2020-09-29 21:46:00 Test Item Value Reference Range Interpretation Comments APTT Patient (test code = See_Comment [ Automated message] 3173-2) The system [employer] generated this result transmitted ref erence range: 26 - 36 Seconds. The re ference range was not u sed to interpret this result as normal/abnor mal. Lab Interpretation (test Normal code = 32813-6) [facility] CampusProthrombin Time (PT) / [id number] 21:46:00 Test Item Value Reference Range Interpretation [...] tions. Lab Interpretation (test Abnormal code = 22822-2) [facility] with Manjeljgpkyi9829-87-69 21:41:00 Test Item Value Reference Range Interpretation [...] (test code = 53.0 fL 38.5-51.6 H 50170-9) RDW-CV (test code = 17.6 % 12.1-15.4 H 788-0) PLT (test code = See_Comment H [Automated 777-3) message] The sy stem which generated this result transmitted reference range : 150 - 328 10*3/ ?L. The reference r meredith was not used to interpret this result as normal/abnormal . MPV (test code = 9.1 fL 9.8-13 L 24493-1) NRBC/100 WBC (test See_Comment [Automat ed code = 6807798284) message] The system which generated this result transmitted reference range : 0.0 - 10.0 /100 WBCs. The refer ence range was not u sed to interpret th is result as normal/abnormal . NRBC x10^3 (test code <0.01 See_Comment [Auto mated = 5002739716) message] The s ystem which generated this result transmitted reference range : 10*3/?L. The reference range was not used to interpret this result as normal/abnormal . GRAN MAT (NEUT) % 77.4 % (test code = 770-8) IMM GRAN % (test code 0.50 % = 3955625104) LYMPH % (test code = 15.8 % 736-9) MONO % (test code = 4.9 % 5905-5) EOS % (test code = 0.8 % 713-8) BASO % (test code = 0.6 % 706-2) GRAN MAT x10^3(ANC) 5.04 10*3/uL 1.99-6.95 (test code = 4981987775) IMM GRAN x10^3 (test 0.03 10*3/uL 0-0.06 code = 8269497712) LYMPH x10^3 (test code 1.03 10*3/uL 1.09-3.23 L = 731-0) MONO x10^3 (test code 0.32 10*3/uL 0.36-1.02 L = 742-7) EOS x10^3 (test code = 0.05 10*3/uL 0.06-0.53 L 711-2) BASO x10^3 (test code 0.04 10*3/uL 0.01-0.09 = 704-7) Lab Interpretation Abnormal (test code = 06875-2) [facility] [id number] 21:19:32CHEST ONE VIEW HISTORY: ?Weakness TECHNIQUE: ?AP [...] the left costophrenic angle suggests a leftpleural effusion.[facility] CampusCOVID-19 (ID NOW RAPID TESTING) 2020-05-20 10:09:00 Test Item Value Reference Range Interpretation Comments SARS-CoV-2 Rapid ID NOW Not Detected Not Detected (test code = 00370-0) GILBERTO (test code = GILBERTO) ID NOW COVID-19 Assay is an isothermal nucleic acid amplification test intended for the qualitative detection of nucleic acid from SARS-CoV-2 viral RNA in nasopharyngeal ([employer]ER) specimens. It is used under Emergency Use [...] indicated. Lab Interpretation Normal (test code = 21950-7) [facility] CampusURINALYSIS2020-09-27 10:07:00 Test Item Value Reference Range Interpretation Comments APPEARANCE (test code = Clear Clear 7283302125) COLOR (test code = Yellow Yellow 8945147970) PH (test code = 4.8-8.0 2469096314) SP GRAVITY (test code = 1.003-1.030 H 9516227195) GLU U QUAL (test code = Normal Normal 5624890411) BLOOD (test code = Negative Negative 5006663899) KETONES (test code = Negative Negative 1560245272) PROTEIN (test code = Negative Negative 2887-8) UROBILIN (test code = Normal Normal 5103934271) BILIRUBIN (test code = Negative Negative 0660131344) NITRITE (test code = Negative Negative 4707588906) LEUK ROGER (test code = Negative Negative 6496006905) RBC/HPF (test code = See_Comment [Autom ated message] 0334954223) The system [employer] generated this result transmitted ref erence range: 0 - 3 HP F. The reference range was not used to int erpret this result as normal/abnormal . WBC/HPF (test code = See_Comment [Autom ated message] 3387817030) The system [employer] generated this result transmitted ref erence range: 0 - 5 HP F. The reference range was not used to int erpret this result as normal/abnormal . BACTERIA (test code = Negative Negative 6933521597) MUCOUS (test code = Slight Negative LPF A 9606195082) SQ EPITH (test code = See_Comment [Auto mated message] 2956278406) The system [employer] generated this result transmitted ref erence range: <=2 HPF. The reference range was not used to int erpret this result as normal/abnormal . HYAL CAST (test code = See_Comment H [Aut omated message] 3787976594) The system [employer] generated this result transmitted ref erence range: <=2 LPF. The reference range was not used to int erpret this result as normal/abnormal . Lab Interpretation (test Abnormal code = 78595-3) [facility] CampusCT ABDOMEN PELVIS W [id number] 04:28:40Impression: 1. Multiple rim-enhancing fluid and gas [...] effusions, possiblyloculated on the left. RL: 2824AFC: 28703 End of Report Exam: CT Abdomen and [...] no pelvic adenopathy. Osseous structures are unremarkable. Nmmb, Radiant Results Inft User - 05/19/2020 11:29 [...] pleural effusions, possiblyloculated on the left.RL: 2824AFC: 60313Qcy of Report [facility] CampusPITO [id number] 03:44:00 Test Item Value Reference Range Interpretation Comments TROPONIN I (test 0.001 ng/mL See_Comment [Automated code = 3287279003) message] The system which generated this result [...] ? Lab Interpretation Normal (test code = 56516-4) [facility]. METABOLIC PANEL (29254)2020-05-20 03:33:00 Test Item Value Reference Range Interpretation Comments NA (test code = 138 mmol/L 135-145 8093398699) K (test code = 5.3 mmol/L 3.5-5 H 0078241484) CL (test code = 100 mmol/L 98-108 4160862680) CO2 TOTAL (test code = 28 mmol/L 23-31 1372997470) AGAP (test code = 2-16 9764481696) BUN (test code = 27 mg/dL 7-23 H 2592386106) GLUCOSE (test code = 90 mg/dL 70-110 5635459848) CREATININE (test code = 1.25 mg/dL 0.6-1.25 6336706192) TOTAL BILI (test code = 0.2 mg/dL 0.1-1.6 2860333250) CALCIUM (test code = 9.9 mg/dL 8.6-10.6 4000723345) T PROTEIN (test code = 6.8 g/dL 6.3-8.2 6436961934) ALBUMIN (test code = 3.7 g/dL 3.5-5 5846578161) ALK PHOS (test code = 122 U/L 34-122 5828866863) ALTv (test code = 26 U/L 5-50 1742-6) AST(SGOT) (test code = 24 U/L 13-40 1390182296) eGFR Calculation mL/min/1.73m2 (Non-) (test code = 3796228305) eGFR Calculation mL/min/1.73m2 () (test code = 3772274795) GILBERTO (test code = GILBERTO) Association of [...] tests). Lab Interpretation Abnormal (test code = 45408-6) [facility] CampusLIPASE2020-09-27 03:33:00 Test Item Value Reference Range Interpretation Comments LIPASE (test code = 3550438329) 223 U/L 0-220 H Lab Interpretation (test code = Abnormal 47685-5) [facility] CampusMAGNESIUM2020-09-27 03:33:00 Test Item Value Reference Range Interpretation Comments MAGNESIUM (test code = 6825992796) 1.7 mg/dL 1.7-2.4 Lab Interpretation (test code = Normal 62263-1) [facility] CampusCB WITH [id number] 03:17:00 Test Item Value Reference Range Interpretation [...] RDW-SD (test code = 49.9 fL 38.5-51.6 84581-3) RDW-CV (test code = 17.2 % 12.1-15.4 H 788-0) PLT (test code = See_Comment H [Automated 777-3) message] The sy stem which generated this result transmitted reference range : 150 - 328 10*3/ ?L. The reference r meredith was not used to interpret this result as normal/abnormal . MPV (test code = 9.3 fL 9.8-13 L 78511-1) NRBC/100 WBC (test See_Comment [Automat ed code = 0200152770) message] The system which generated this result transmitted reference range : 0.0 - 10.0 /100 WBCs. The refer ence range was not u sed to interpret th is result as normal/abnormal . NRBC x10^3 (test code <0.01 See_Comment [Auto mated = 9025538798) message] The s ystem which generated this result transmitted reference range : 10*3/?L. The reference range was not used to interpret this result as normal/abnormal . GRAN MAT (NEUT) % 78.5 % (test code = 770-8) IMM GRAN % (test code 0.50 % = 5728442171) LYMPH % (test code = 11.6 % 736-9) MONO % (test code = 8.4 % 5905-5) EOS % (test code = 0.6 % 713-8) BASO % (test code = 0.4 % 706-2) GRAN MAT x10^3(ANC) 6.16 10*3/uL 1.99-6.95 (test code = 5875472549) IMM GRAN x10^3 (test 0.04 10*3/uL 0-0.06 code = 6901642530) LYMPH x10^3 (test code 0.91 10*3/uL 1.09-3.23 L = 731-0) MONO x10^3 (test code 0.66 10*3/uL 0.36-1.02 = 742-7) EOS x10^3 (test code = 0.05 10*3/uL 0.06-0.53 L 711-2) BASO x10^3 (test code 0.03 10*3/uL 0.01-0.09 = 704-7) Lab Interpretation Abnormal (test code = 48913-0) [facility] CampusBODY FLUID CULTURE(AEROBIC/ANAEROBIC) 2020-05-10 15:19:00 Test Item Value Reference Range Interpretation Comments BODY FLUID CULT 2+ Clostridioides (test code = (Clostridium) difficile 611-4) Gram stain (test Few PMNs or Mononuclear code = 664-3) cells observed [facility] CampusBasi Metabolic Panel (NA, K, CL, CO2, GLUCOSE, BUN, CREATININE, CA)2020-05-10 10:27:00 Test Item Value Reference Range Interpretation Comments NA (test code = 132 mmol/L 135-145 L 9882198316) K (test code = 4.0 mmol/L 3.5-5 7591501644) CL (test code = 97 mmol/L 98-108 L 6330823048) CO2 TOTAL (test code = 28 mmol/L 23-31 8474814025) AGAP (test code = 2-16 7036159315) BUN (test code = 12 mg/dL 7-23 2792156772) GLUCOSE (test code = 128 mg/dL 70-110 H 0797700470) CREATININE (test code = 0.63 mg/dL 0.6-1.25 5248487094) CALCIUM (test code = 8.7 mg/dL 8.6-10.6 1858467604) eGFR Calculation mL/min/1.73m2 (Non-) (test code = 6747163167) eGFR Calculation mL/min/1.73m2 () (test code = 8898708189) GILBERTO (test code = GILBERTO) Association of [...] tests). Lab Interpretation Abnormal (test code = 64150-9) [facility] CampusMagnesium Qlbwa8819-73-41 10:27:00 Test Item Value Reference Range Interpretation Comments MAGNESIUM (test code = 4352755389) 1.7 mg/dL 1.7-2.4 Lab Interpretation (test code = Normal 70453-4) [facility] CampusPhosphorus [id number] 10:27:00 Test Item Value Reference Range Interpretation Comments PHOSPHORUS (test code = 4422760163) 3.4 mg/dL 2.5-5 Lab Interpretation (test code = Normal 25461-9) [facility] with Zunwuhdjbzov0410-85-35 10:03:00 Test Item Value Reference Range Interpretation [...] RDW-SD (test code = 47.3 fL 38.5-51.6 07438-7) RDW-CV (test code = 15.7 % 12.1-15.4 H 788-0) PLT (test code = See_Comment H [Automated 777-3) message] The sy stem which generated this result transmitted reference range : 150 - 328 10*3/ ?L. The reference r meredith was not used to interpret this result as normal/abnormal . MPV (test code = 8.9 fL 9.8-13 L 35040-1) NRBC/100 WBC (test See_Comment [Automat ed code = 9765130813) message] The system which generated this result transmitted reference range : 0.0 - 10.0 /100 WBCs. The refer ence range was not u sed to interpret th is result as normal/abnormal . NRBC x10^3 (test code <0.01 See_Comment [Auto mated = 2398603068) message] The s ystem which generated this result transmitted reference range : 10*3/?L. The reference range was not used to interpret this result as normal/abnormal . GRAN MAT (NEUT) % 80.0 % (test code = 770-8) IMM GRAN % (test code 0.50 % = 6206238441) LYMPH % (test code = 11.8 % 736-9) MONO % (test code = 6.6 % 5905-5) EOS % (test code = 0.8 % 713-8) BASO % (test code = 0.3 % 706-2) GRAN MAT x10^3(ANC) 6.98 10*3/uL 1.99-6.95 H (test code = 5707966637) IMM GRAN x10^3 (test 0.04 10*3/uL 0-0.06 code = 9353132752) LYMPH x10^3 (test code 1.03 10*3/uL 1.09-3.23 L = 731-0) MONO x10^3 (test code 0.58 10*3/uL 0.36-1.02 = 742-7) EOS x10^3 (test code = 0.07 10*3/uL 0.06-0.53 711-2) BASO x10^3 (test code 0.03 10*3/uL 0.01-0.09 = 704-7) Lab Interpretation Abnormal (test code = 57196-9) [facility] Metabolic Panel (NA, K, CL, CO2, GLUCOSE, BUN, CREATININE, CA)2020-05-09 11:07:00 Test Item Value Reference Range Interpretation Comments NA (test code = 133 mmol/L 135-145 L 0298676861) K (test code = 4.4 mmol/L 3.5-5 8449282066) CL (test code = 100 mmol/L 98-108 7893995503) CO2 TOTAL (test code = 25 mmol/L 23-31 2439572581) AGAP (test code = 2-16 8996422409) BUN (test code = 14 mg/dL 7-23 1461869895) GLUCOSE (test code = 93 mg/dL 70-110 4847795998) CREATININE (test code = 0.66 mg/dL 0.6-1.25 5355211174) CALCIUM (test code = 8.3 mg/dL 8.6-10.6 L 7907248590) eGFR Calculation mL/min/1.73m2 (Non-) (test code = 1029073218) eGFR Calculation mL/min/1.73m2 () (test code = 7114422603) GILBERTO (test code = GILBERTO) Association of [...] tests). Lab Interpretation Abnormal (test code = 36144-7) [facility] CampusMagnesium Msknm4868-61-45 11:07:00 Test Item Value Reference Range Interpretation Comments MAGNESIUM (test code = 6904671004) 1.8 mg/dL 1.7-2.4 Lab Interpretation (test code = Normal 88400-1) [facility] CampusPhosphorus [place]7360-32-02 11:07:00 Test Item Value Reference Range Interpretation Comments PHOSPHORUS (test code = 4516540069) 3.2 mg/dL 2.5-5 Lab Interpretation (test code = Normal 74573-3) [facility] with Qwuctbsoaodp5223-26-57 10:42:00 Test Item Value Reference Range Interpretation Comments WBC (test code = See_Comment [Automated 5190-2) message] The sy stem which generated this [...] RDW-SD (test code = 45.9 fL 38.5-51.6 44918-5) RDW-CV (test code = 15.4 % 12.1-15.4 788-0) PLT (test code = See_Comment H [Automated 777-3) message] The sy stem which generated this result transmitted reference range : 150 - 328 10*3/ ?L. The reference r meredith was not used to interpret this result as normal/abnormal . MPV (test code = 8.9 fL 9.8-13 L 95126-4) NRBC/100 WBC (test See_Comment [Automat ed code = 2337065566) message] The system which generated this result transmitted reference range : 0.0 - 10.0 /100 WBCs. The refer ence range was not u sed to interpret th is result as normal/abnormal . NRBC x10^3 (test code <0.01 See_Comment [Auto mated = 6133028691) message] The s ystem which generated this result transmitted reference range : 10*3/?L. The reference range was not used to interpret this result as normal/abnormal . GRAN MAT (NEUT) % 77.7 % (test code = 770-8) IMM GRAN % (test code 0.50 % = 9998581635) LYMPH % (test code = 11.8 % 736-9) MONO % (test code = 8.4 % 5905-5) EOS % (test code = 1.4 % 713-8) BASO % (test code = 0.2 % 706-2) GRAN MAT x10^3(ANC) 6.48 10*3/uL 1.99-6.95 (test code = 0694461529) IMM GRAN x10^3 (test 0.04 10*3/uL 0-0.06 code = 9480930863) LYMPH x10^3 (test code 0.98 10*3/uL 1.09-3.23 L = 731-0) MONO x10^3 (test code 0.70 10*3/uL 0.36-1.02 = 742-7) EOS x10^3 (test code = 0.12 10*3/uL 0.06-0.53 711-2) BASO x10^3 (test code <0.03 0.01-0.09 = 704-7) Lab Interpretation Abnormal (test code = 32400-3) [facility] Metabolic Panel (NA, K, CL, CO2, GLUCOSE, BUN, CREATININE, CA)2020-05-08 12:18:00 Test Item Value Reference Range Interpretation Comments NA (test code = 136 mmol/L 135-145 6133716598) K (test code = 4.1 mmol/L 3.5-5 1756799234) CL (test code = 102 mmol/L 98-108 8605254698) CO2 TOTAL (test code = 26 mmol/L 23-31 7595912463) AGAP (test code = 2-16 2529826842) BUN (test code = 18 mg/dL 7-23 2478696789) GLUCOSE (test code = 99 mg/dL 70-110 5080835700) CREATININE (test code = 0.63 mg/dL 0.6-1.25 4438280357) CALCIUM (test code = 8.4 mg/dL 8.6-10.6 L 7893065029) eGFR Calculation mL/min/1.73m2 (Non-) (test code = 1471846015) eGFR Calculation mL/min/1.73m2 () (test code = 5398412329) GILBERTO (test code = GILBERTO) Association of [...] tests). Lab Interpretation Abnormal (test code = 86830-1) [facility] CampusMagnesium Phzlh5869-84-34 12:18:00 Test Item Value Reference Range Interpretation Comments MAGNESIUM (test code = 9495600009) 1.8 mg/dL 1.7-2.4 Lab Interpretation (test code = Normal 39926-3) [facility] CampusPhosphorus Vwtec6765-92-55 12:18:00 Test Item Value Reference Range Interpretation Comments PHOSPHORUS (test code = 2793790086) 3.2 mg/dL 2.5-5 Lab Interpretation (test code = Normal 01674-2) [facility]CB with [id number] 11:50:00 Test Item Value Reference Range Interpretation Comments WBC (test code = See_Comment [Automated 8315-2) message] The sy stem which generated this [...] RDW-SD (test code = 46.9 fL 38.5-51.6 04183-0) RDW-CV (test code = 15.2 % 12.1-15.4 788-0) PLT (test code = See_Comment H [Automated 777-3) message] The sy stem which generated this result transmitted reference range : 150 - 328 10*3/ ?L. The reference r meredith was not used to interpret this result as normal/abnormal . MPV (test code = 9.0 fL 9.8-13 L 58640-5) NRBC/100 WBC (test See_Comment [Automat ed code = 7026330268) message] The system which generated this result transmitted reference range : 0.0 - 10.0 /100 WBCs. The refer ence range was not u sed to interpret th is result as normal/abnormal . NRBC x10^3 (test code <0.01 See_Comment [Auto mated = 2619869497) message] The s ystem which generated this result transmitted reference range : 10*3/?L. The reference range was not used to interpret this result as normal/abnormal . GRAN MAT (NEUT) % 76.3 % (test code = 770-8) IMM GRAN % (test code 0.70 % = 2791438655) LYMPH % (test code = 13.3 % 736-9) MONO % (test code = 8.4 % 5905-5) EOS % (test code = 1.1 % 713-8) BASO % (test code = 0.2 % 706-2) GRAN MAT x10^3(ANC) 6.93 10*3/uL 1.99-6.95 (test code = 2315299354) IMM GRAN x10^3 (test 0.06 10*3/uL 0-0.06 code = 3315694026) LYMPH x10^3 (test code 1.21 10*3/uL 1.09-3.23 = 731-0) MONO x10^3 (test code 0.76 10*3/uL 0.36-1.02 = 742-7) EOS x10^3 (test code = 0.10 10*3/uL 0.06-0.53 711-2) BASO x10^3 (test code <0.03 0.01-0.09 = 704-7) Lab Interpretation Abnormal (test code = 32299-4) [facility] BY CATHETER PERITONEAL OR [id number] 13:09:04 Technically successful drainage catheter placement in [...] of the tract was performed. A 14 Algerian locking pigtail michael inagecatheter was placed in the collection and samples were sent for laboratoryanalysis. The left upper quadrant collection was identified under ultrasound and CTguidance. A 17-gauge coaxial needle wasadvanced into the collection. AnAmplatz wire was advanced into the collection over the needle and serialdilatation of the tract was performed. A 12 Algerian locking pigtail drainagecatheter was placed within the collection and samples were sent forlaboratory analysis. The right lower quadrant collectionwas identified under ultrasound and CTguidance. A 17-gauge coaxial needle was advanced into the colle ction.Serial dilatation was performed over the Amplatz wire. A 14 Algerian lockingpigtail drainage catheter was placed within the collection. Proper positioning was confirmed with postprocedural CT imaging of theabdomen and pelvis. The catheters were sutured to the skin. ESTIMATED BLOOD LOSS: <3cc. CONDITION: Stable. FINDINGS: Initial CT images demonstrate multiple abscesses in the left upper, rightupper, and right lower quadrants. [facility], Radiant Results Inft User - 05/07/2020 8:10 [...] from those actually performing theprocedure. Please see [facility] for total sedation time. TECHNIQUE: The risks, benefits and alternatives were discussed and informedconsent was obtained. Prior to beginning the procedure, Marshall Protocolwas performed to confirm the patient's identity [...] of the tract was performed. A 14 Algerian lockingpigtail drainagecatheter was placed in the collection and samples were sent for laboratoryanalysis.The left upper quadrant collection was identified under ultrasound and CTguidance. A 17-gauge coaxial needle was advanced into the collection. AnAmplatz wire was advanced into the collection over the needle and serialdilatation of the tract was performed. A 12 Algerian locking pigtail drainagecatheter wasplaced within the collection and samples were sent forlaboratory analysis.The right lower quadrant collection was identified under ultrasound and CTguidance. A 17-gauge coaxial needle was advanced intothe collection.Serial dilatation was performed over the Amplatz wire. A 14 Algerian lockingpigtail drainage catheter was placed within the [...] during the entire procedure and/orduring the botello components.[facility] Metabolic Panel (NA, K, CL, CO2, GLUCOSE, BUN, CREATININE, CA) 2020-05-07 11:49:00 Test Item Value Reference Range Interpretation Comments NA (test code = 132 mmol/L 135-145 L 1633123503) K (test code = 4.0 mmol/L 3.5-5 7933193782) CL (test code = 101 mmol/L 98-108 3521493962) CO2 TOTAL (test code = 23 mmol/L 23-31 6416987343) AGAP (test code = 2-16 3479592415) BUN (test code = 21 mg/dL 7-23 5234562883) GLUCOSE (test code = 98 mg/dL 70-110 6122626739) CREATININE (test code = 0.65 mg/dL 0.6-1.25 2287138720) CALCIUM (test code = 8.4 mg/dL 8.6-10.6 L 0387898385) eGFR Calculation mL/min/1.73m2 (Non-) (test code = 6101546705) eGFR Calculation mL/min/1.73m2 () (test code = 4498971380) GILBERTO (test code = GILBERTO) Association of [...] tests). Lab Interpretation Abnormal (test code = 11140-9) [facility] CampusMagnesium [id number] 11:49:00 Test Item Value Reference Range Interpretation Comments MAGNESIUM (test code = 7301886567) 1.5 mg/dL 1.7-2.4 L Lab Interpretation (test code = Abnormal 12221-5) [facility] CampusPhosphorus [id number] 11:49:00 Test Item Value Reference Range Interpretation Comments PHOSPHORUS (test code = 5072634709) 2.7 mg/dL 2.5-5 Lab Interpretation (test code = Normal 95855-0) [facility] with Raushudbszjf6587-09-42 11:31:00 Test Item Value Reference Range Interpretation [...] RDW-SD (test code = 47.2 fL 38.5-51.6 73295-3) RDW-CV (test code = 15.3 % 12.1-15.4 788-0) PLT (test code = See_Comment H [Automated 777-3) message] The sy stem which generated this result transmitted reference range : 150 - 328 10*3/ ?L. The reference r meredith was not used to interpret this result as normal/abnormal . MPV (test code = 9.4 fL 9.8-13 L 16520-9) NRBC/100 WBC (test See_Comment [Automat ed code = 7352878940) message] The system which generated this result transmitted reference range : 0.0 - 10.0 /100 WBCs. The refer ence range was not u sed to interpret th is result as normal/abnormal . NRBC x10^3 (test code <0.01 See_Comment [Auto mated = 8758828266) message] The s ysteDataProm which generated this result transmitted reference range : 10*3/?L. The reference range was not used to interpret this result as normal/abnormal . GRAN MAT (NEUT) % 81.1 % (test code = 770-8) IMM GRAN % (test code 0.80 % = 2642787965) LYMPH % (test code = 9.5 % 736-9) MONO % (test code = 7.8 % 5905-5) EOS % (test code = 0.6 % 713-8) BASO % (test code = 0.2 % 706-2) GRAN MAT x10^3(ANC) 8.26 10*3/uL 1.99-6.95 H (test code = 6815198872) IMM GRAN x10^3 (test 0.08 10*3/uL 0-0.06 H code = 0298982191) LYMPH x10^3 (test code 0.97 10*3/uL 1.09-3.23 L = 731-0) MONO x10^3 (test code 0.79 10*3/uL 0.36-1.02 = 742-7) EOS x10^3 (test code = 0.06 10*3/uL 0.06-0.53 711-2) BASO x10^3 (test code <0.03 0.01-0.09 = 704-7) Lab Interpretation Abnormal (test code = 63709-0) [facility] Metabolic Panel (NA, K, CL, CO2, GLUCOSE, BUN, CREATININE, CA)2020-05-06 15:02:00 Test Item Value Reference Range Interpretation Comments NA (test code = 134 mmol/L 135-145 L 2521765617) K (test code = 4.3 mmol/L 3.5-5 0727102087) CL (test code = 105 mmol/L 98-108 2914281010) CO2 TOTAL (test code = 23 mmol/L 23-31 6425418268) AGAP (test code = 2-16 4678654749) BUN (test code = 18 mg/dL 7-23 5323634949) GLUCOSE (test code = 96 mg/dL 70-110 1991915448) CREATININE (test code = 0.67 mg/dL 0.6-1.25 6687038997) CALCIUM (test code = 8.5 mg/dL 8.6-10.6 L 9115091286) eGFR Calculation mL/min/1.73m2 (Non-) (test code = 5376155851) eGFR Calculation mL/min/1.73m2 () (test code = 7846848030) GILBERTO (test code = GILBERTO) Association of [...] tests). Lab Interpretation Abnormal (test code = 75409-5) [facility] CampusMagnesium [id number] 15:02:00 Test Item Value Reference Range Interpretation Comments MAGNESIUM (test code = 5034292072) 1.8 mg/dL 1.7-2.4 Lab Interpretation (test code = Normal 44725-2) [facility] CampusPhosphorus [id number] 15:02:00 Test Item Value Reference Range Interpretation Comments PHOSPHORUS (test code = 3285356296) 3.2 mg/dL 2.5-5 Lab Interpretation (test code = Normal 49129-8) [facility] with Rkuviqnsjrxo1911-63-30 10:41:00 Test Item Value Reference Range Interpretation [...] RDW-SD (test code = 47.0 fL 38.5-51.6 23658-9) RDW-CV (test code = 15.2 % 12.1-15.4 788-0) PLT (test code = See_Comment H [Automated 777-3) message] The sy stem which generated this result transmitted reference range : 150 - 328 10*3/ ?L. The reference r meredith was not used to interpret this result as normal/abnormal . MPV (test code = 9.1 fL 9.8-13 L 16710-4) NRBC/100 WBC (test See_Comment [Automat ed code = 4370991031) message] The system which generated this result transmitted reference range : 0.0 - 10.0 /100 WBCs. The refer ence range was not u sed to interpret th is result as normal/abnormal . NRBC x10^3 (test code <0.01 See_Comment [Auto mated = 8099043905) message] The s ystem which generated this result transmitted reference range : 10*3/?L. The reference range was not used to interpret this result as normal/abnormal . GRAN MAT (NEUT) % 77.3 % (test code = 770-8) IMM GRAN % (test code 0.60 % = 5511798554) LYMPH % (test code = 11.6 % 736-9) MONO % (test code = 9.5 % 5905-5) EOS % (test code = 0.8 % 713-8) BASO % (test code = 0.2 % 706-2) GRAN MAT x10^3(ANC) 6.69 10*3/uL 1.99-6.95 (test code = 4069635509) IMM GRAN x10^3 (test 0.05 10*3/uL 0-0.06 code = 1341402023) LYMPH x10^3 (test code 1.00 10*3/uL 1.09-3.23 L = 731-0) MONO x10^3 (test code 0.82 10*3/uL 0.36-1.02 = 742-7) EOS x10^3 (test code = 0.07 10*3/uL 0.06-0.53 711-2) BASO x10^3 (test code <0.03 0.01-0.09 = 704-7) Lab Interpretation Abnormal (test code = 46115-6) [facility] Packed RBC (in units), 1 Units 2020-05-05 15:59:33 Test Item Value Reference Range Interpretation Comments Cross Match Result Compatible (test code = 4409) ISBT Blood Type Code (test code = 692008) Unit Blood Type (test O Pos code = 4410) Unit Number (test [id number] code = 4411) Blood Expiration Date & Time (test code = 569028) Status Information Issued (test code = 4412) Product Red Blood Cells Identification (test code = 4413) Product Code (test B6325P42 Performed at [facility] code = 4414) Laboratory Services - [facility] Blood [address] [place] [address]Czkd Free: [phone] A No. [id number] [facility] CampusType and Screen - ONCE Xsjziig3564-78-54 11:34:29 Test Item Value Reference Range Interpretation Comments ABO & RH (test code O POSITIVE Performe d at [facility] = 20) Laboratory Serv [facility] Blood Bank3 [address] [facility] [address]Fckq Free: [phone] A No. [id number] IAT (test code = Negative Performed a t [facility] 1185) Laboratory Serv [facility] Blood Bank3 [facility] [address]Dxiu Free: [phone] A No. [id number] [facility] CampusPREALBUMIN2020-09-12 10:19:00 Test Item Value Reference Range Interpretation Comments PALB (test code = 63067-5) 8.0 mg/dL 18-45 L Lab Interpretation (test code = Abnormal 29079-7) [facility] CampusBasi Metabolic Panel (NA, K, CL, CO2, GLUCOSE, BUN, CREATININE, CA)2020-05-05 10:12:00 Test Item Value Reference Range Interpretation Comments NA (test code = 135 mmol/L 135-145 6743199933) K (test code = 4.1 mmol/L 3.5-5 9319308111) CL (test code = 106 mmol/L 98-108 5555272850) CO2 TOTAL (test code = 22 mmol/L 23-31 L 0927784730) AGAP (test code = 2-16 7687463187) BUN (test code = 25 mg/dL 7-23 H 3921894406) GLUCOSE (test code = 91 mg/dL 70-110 1982372033) CREATININE (test code = 0.68 mg/dL 0.6-1.25 6597407311) CALCIUM (test code = 7.4 mg/dL 8.6-10.6 L 0133704514) eGFR Calculation mL/min/1.73m2 (Non-) (test code = 7105521265) eGFR Calculation mL/min/1.73m2 () (test code = 8804822533) GILBERTO (test code = GILBERTO) Association of [...] tests). Lab Interpretation Abnormal (test code = 04264-3) [facility] CampusMagnesium [id number] 10:12:00 Test Item Value Reference Range Interpretation Comments MAGNESIUM (test code = 3188190779) 1.8 mg/dL 1.7-2.4 Lab Interpretation (test code = Normal 57352-5) [facility] CampusPhosphorus [id number] 10:12:00 Test Item Value Reference Range Interpretation Comments PHOSPHORUS (test code = 4563470647) 3.1 mg/dL 2.5-5 Lab Interpretation (test code = Normal 46817-6) [facility] CampusCB with Vruvdwskbrri1918-78-59 09:18:00 Test Item Value Reference Range Interpretation Comments WBC (test code = See_Comment [Automated 6798-2) message] The sy stem which generated this [...] RDW-SD (test code = 48.4 fL 38.5-51.6 75914-2) RDW-CV (test code = 15.7 % 12.1-15.4 H 788-0) PLT (test code = See_Comment H [Automated 777-3) message] The sy stem which generated this result transmitted reference range : 150 - 328 10*3/ ?L. The reference r meredith was not used to interpret this result as normal/abnormal . MPV (test code = 9.1 fL 9.8-13 L 79617-3) NRBC/100 WBC (test See_Comment [Automat ed code = 7632427936) message] The system which generated this result transmitted reference range : 0.0 - 10.0 /100 WBCs. The refer ence range was not u sed to interpret th is result as normal/abnormal . NRBC x10^3 (test code <0.01 See_Comment [Auto mated = 7016715059) message] The s ystem which generated this result transmitted reference range : 10*3/?L. The reference range was not used to interpret this result as normal/abnormal . GRAN MAT (NEUT) % 79.0 % (test code = 770-8) IMM GRAN % (test code 0.70 % = 4758067582) LYMPH % (test code = 10.6 % 736-9) MONO % (test code = 8.9 % 5905-5) EOS % (test code = 0.5 % 713-8) BASO % (test code = 0.3 % 706-2) GRAN MAT x10^3(ANC) 7.81 10*3/uL 1.99-6.95 H (test code = 4973192197) IMM GRAN x10^3 (test 0.07 10*3/uL 0-0.06 H code = 0088870467) LYMPH x10^3 (test code 1.05 10*3/uL 1.09-3.23 L = 731-0) MONO x10^3 (test code 0.88 10*3/uL 0.36-1.02 = 742-7) EOS x10^3 (test code = 0.05 10*3/uL 0.06-0.53 L 711-2) BASO x10^3 (test code 0.03 10*3/uL 0.01-0.09 = 704-7) Lab Interpretation Abnormal (test code = 45663-3) [facility] CampusURINALYSIS2020-09-12 06:03:00 Test Item Value Reference Range Interpretation Comments APPEARANCE (test code = Hazy Clear A 3131128297) COLOR (test code = Yellow Yellow 4170736356) PH (test code = 4.8-8.0 2730821020) SP GRAVITY (test code = 1.003-1.030 H 3432843025) GLU U QUAL (test code = Normal Normal 7143119428) BLOOD (test code = Negative Negative 1671623611) KETONES (test code = Negative Negative 7295481307) PROTEIN (test code = Negative Negative 2887-8) UROBILIN (test code = Normal Normal 2722891828) BILIRUBIN (test code = Negative Negative 4139122734) NITRITE (test code = Negative Negative 9046868934) LEUK ROEGR (test code = Negative Negative 4757629004) RBC/HPF (test code = See_Comment H [Autom ated message] 3476788402) The system [employer] generated this result transmitted ref erence range: 0 - 3 HP F. The reference range was not used to int erpret this result as normal/abnormal . WBC/HPF (test code = See_Comment [Autom ated message] 2160106005) The system [employer] generated this result transmitted ref erence range: 0 - 5 HP F. The reference range was not used to int erpret this result as normal/abnormal . BACTERIA (test code = Few Negative A 9905001135) MUCOUS (test code = Slight Negative LPF A 6491985214) CA OXALATE (test code = See_Comment H [Au tomated message] 5664302067) The system [employer] generated this result transmitted ref erence range: <=1 HPF. The reference range was not used to int erpret this result as normal/abnormal . Lab Interpretation (test Abnormal code = 99670-6) [facility] CampusCT ABDOMEN PELVIS W EQHNOMLO7301-55-07 04:56:59 1. ?Interval removal of left subdiaphragmatic, [...] reviewed this study and agree with the abovereport.[facility] CampusCOVID-19 (ID NOW RAPID TESTING)2020-05-05 03:40:00 Test Item Value Reference Range Interpretation Comments SARS-CoV-2 Rapid ID NOW Not Detected Not Detected (test code = 24456-6) GILBERTO (test code = GILBERTO) ID NOW COVID-19 Assay is an isothermal nucleic acid amplification test intended for the qualitative detection of nucleic acid from SARS-CoV-2 viral RNA in nasopharyngeal ([employer]) specimens. It is used under Emergency Use [...] indicated. Lab Interpretation Normal (test code = 53847-2) [facility]. METABOLIC PANEL (59798)2020-05-05 03:02:00 Test Item Value Reference Range Interpretation Comments NA (test code = 134 mmol/L 135-145 L 9803052978) K (test code = 4.7 mmol/L 3.5-5 5632966737) CL (test code = 99 mmol/L 98-108 4655595062) CO2 TOTAL (test code = 24 mmol/L 23-31 7246100854) AGAP (test code = 2-16 9884293413) BUN (test code = 37 mg/dL 7-23 H 4175752299) GLUCOSE (test code = 105 mg/dL 70-110 0518927404) CREATININE (test code = 0.94 mg/dL 0.6-1.25 3507563073) TOTAL BILI (test code = 0.5 mg/dL 0.1-1.3 3141368200) CALCIUM (test code = 8.8 mg/dL 8.6-10.6 5177409871) T PROTEIN (test code = 6.2 g/dL 6.3-8.2 L 1839732890) ALBUMIN (test code = 3.0 g/dL 3.5-5 L 7022811656) ALK PHOS (test code = 150 U/L 34-122 H 4250232427) ALTv (test code = 28 U/L 5-50 1742-6) AST(SGOT) (test code = 23 U/L 13-40 0619143803) eGFR Calculation mL/min/1.73m2 (Non-) (test code = 6603690714) eGFR Calculation mL/min/1.73m2 () (test code = 9559851521) GILBERTO (test code = GILBERTO) Association of [...] tests). Lab Interpretation Abnormal (test code = 27422-9) [facility] CampusLIPASE2020-09-12 03:02:00 Test Item Value Reference Range Interpretation Comments LIPASE (test code = 4835158967) 323 U/L 0-220 H Lab Interpretation (test code = Abnormal 29963-0) [facility] CampusCB WITH [id number] 02:43:00 Test Item Value Reference Range Interpretation Comments WBC (test code = See_Comment H [Automated 8290-2) message] The system which generated this result transmit dain reference range : 4.20 - 10.70 10*3/?L. The reference range was not used to interpret this result as normal/abnormal . RBC (test code = See_Comment L [Automated 869-8) message] The system which generated this result [...] RDW-SD (test code = 45.7 fL 38.5-51.6 62816-1) RDW-CV (test code = 15.4 % 12.1-15.4 788-0) PLT (test code = See_Comment H [Automated 777-3) message] The system which generated this result transmit dain reference range : 150 - 328 10*3/ ?L. The reference range was not u sed to interpret th is result as normal/abnormal . MPV (test code = 8.9 fL 9.8-13 L 56046-2) NRBC/100 WBC (test See_Comment [Automat ed code = 2252531444) message] The system which generated this result transmit dain reference range : 0.0 - 10.0 /100 WBCs. The reference range was not used to interpret this result as normal/abnormal . NRBC x10^3 (test code <0.01 See_Comment [Auto mated = 7563903497) message] The system which generated this result transmit dain reference range : 10*3/?L. The reference range was not used to interpret this result as normal/abnormal . GRAN MAT (NEUT) % 82.6 % (test code = 770-8) IMM GRAN % (test code 0.60 % = 5629525144) LYMPH % (test code = 8.1 % 736-9) MONO % (test code = 8.1 % 5905-5) EOS % (test code = 0.4 % 713-8) BASO % (test code = 0.2 % 706-2) GRAN MAT x10^3(ANC) 11.18 10*3/uL 1.99-6.95 H (test code = 6964936421) IMM GRAN x10^3 (test 0.08 10*3/uL 0-0.06 H code = 8635524058) LYMPH x10^3 (test code 1.10 10*3/uL 1.09-3.23 = 731-0) MONO x10^3 (test code 1.09 10*3/uL 0.36-1.02 H = 742-7) EOS x10^3 (test code = 0.05 10*3/uL 0.06-0.53 L 711-2) BASO x10^3 (test code 0.03 10*3/uL 0.01-0.09 = 704-7) Lab Interpretation Abnormal (test code = 95039-2) [facility] METABOLIC PANEL (NA, K, CL, CO2, GLUCOSE, BUN, CREATININE, CA)2020-05-01 12:25:00 Test Item Value Reference Range Interpretation Comments NA (test code = 131 mmol/L 135-145 L 0591438317) K (test code = 4.7 mmol/L 3.5-5 8184099562) CL (test code = 97 mmol/L 98-108 L 5028312133) CO2 TOTAL (test code = 25 mmol/L 23-31 1385670077) AGAP (test code = 2-16 9489446271) BUN (test code = 30 mg/dL 7-23 H 0044163610) GLUCOSE (test code = 111 mg/dL 70-110 H 2122427723) CREATININE (test code = 0.69 mg/dL 0.6-1.25 2413646726) CALCIUM (test code = 9.3 mg/dL 8.6-10.6 2286055402) eGFR Calculation mL/min/1.73m2 (Non-) (test code = 2806843991) eGFR Calculation mL/min/1.73m2 () (test code = 3469690858) GILBERTO (test code = GILBERTO) Association of [...] tests). Lab Interpretation Abnormal (test code = 92493-8) [facility] CampusMAGNESIUM2020-09-08 12:07:00 Test Item Value Reference Range Interpretation Comments MAGNESIUM (test code = 5861126372) 2.3 mg/dL 1.7-2.4 Lab Interpretation (test code = Normal 96214-2) [facility] CampusPHOSPHORUS2020-09-08 12:07:00 Test Item Value Reference Range Interpretation Comments PHOSPHORUS (test code = 2528800803) 4.6 mg/dL 2.5-5 Lab Interpretation (test code = Normal 23634-6) [facility] CampusCB WITH [id number] 11:44:00 Test Item Value Reference Range Interpretation [...] RDW-SD (test code = 44.9 fL 38.5-51.6 79361-1) RDW-CV (test code = 14.8 % 12.1-15.4 788-0) PLT (test code = See_Comment H [Automated 777-3) message] The system which generated this result transmit dain reference range : 150 - 328 10*3/ ?L. The reference range was not u sed to interpret th is result as normal/abnormal . MPV (test code = 9.1 fL 9.8-13 L 16516-4) NRBC/100 WBC (test See_Comment [Automat ed code = 2552945678) message] The system which generated this result transmit dain reference range : 0.0 - 10.0 /100 WBCs. The reference range was not used to interpret this result as normal/abnormal . NRBC x10^3 (test code <0.01 See_Comment [Auto mated = 8955617887) message] The system which generated this result transmit dain reference range : 10*3/?L. The reference range was not used to interpret this result as normal/abnormal . GRAN MAT (NEUT) % 81.4 % (test code = 770-8) IMM GRAN % (test code 0.70 % = 5671294185) LYMPH % (test code = 8.7 % 736-9) MONO % (test code = 8.5 % 5905-5) EOS % (test code = 0.3 % 713-8) BASO % (test code = 0.4 % 706-2) GRAN MAT x10^3(ANC) 12.01 10*3/uL 1.99-6.95 H (test code = 1233686141) IMM GRAN x10^3 (test 0.10 10*3/uL 0-0.06 H code = 4968724641) LYMPH x10^3 (test code 1.28 10*3/uL 1.09-3.23 = 731-0) MONO x10^3 (test code 1.25 10*3/uL 0.36-1.02 H = 742-7) EOS x10^3 (test code = 0.04 10*3/uL 0.06-0.53 L 711-2) BASO x10^3 (test code 0.06 10*3/uL 0.01-0.09 = 704-7) Lab Interpretation Abnormal (test code = 27320-9) [facility] METABOLIC PANEL (NA, K, CL, CO2, GLUCOSE, BUN, CREATININE, CA)2020-04-29 12:08:00 Test Item Value Reference Range Interpretation Comments NA (test code = 130 mmol/L 135-145 L 6936712439) K (test code = 5.0 mmol/L 3.5-5 3276540530) CL (test code = 94 mmol/L 98-108 L 7116201195) CO2 TOTAL (test code = 27 mmol/L 23-31 1903290443) AGAP (test code = 2-16 1467920189) BUN (test code = 35 mg/dL 7-23 H 5080983680) GLUCOSE (test code = 116 mg/dL 70-110 H 1113113817) CREATININE (test code = 0.76 mg/dL 0.6-1.25 8253436298) CALCIUM (test code = 9.0 mg/dL 8.6-10.6 5048466215) eGFR Calculation mL/min/1.73m2 (Non-) (test code = 3060769197) eGFR Calculation mL/min/1.73m2 () (test code = 2660217970) GILBERTO (test code = GILBERTO) Association of [...] tests). Lab Interpretation Abnormal (test code = 36200-8) [facility]MAG[facility]UM2020-09-06 12:01:00 Test Item Value Reference Range Interpretation Comments MAGNESIUM (test code = 5618093094) 2.3 mg/dL 1.7-2.4 Lab Interpretation (test code = Normal 32502-7) [facility] CampusPHOSPHORUS2020-09-06 12:01:00 Test Item Value Reference Range Interpretation Comments PHOSPHORUS (test code = 9982790816) 4.5 mg/dL 2.5-5 Lab Interpretation (test code = Normal 10540-8) [facility]CB WITH [id number] 11:52:00 Test Item Value Reference Range Interpretation Comments WBC (test code = See_Comment H [Automated 3490-2) message] The system which generated this result transmit dain reference range : 4.20 - 10.70 10*3/?L. The reference range was not used to interpret this result as normal/abnormal . RBC (test code = See_Comment L [Automated 999-8) message] The system which generated this result [...] RDW-SD (test code = 44.4 fL 38.5-51.6 71130-1) RDW-CV (test code = 14.7 % 12.1-15.4 788-0) PLT (test code = See_Comment H [Automated 777-3) message] The system which generated this result transmit dain reference range : 150 - 328 10*3/ ?L. The reference range was not u sed to interpret th is result as normal/abnormal . MPV (test code = 9.1 fL 9.8-13 L 19638-7) NRBC/100 WBC (test See_Comment [Automat ed code = 8032481914) message] The system which generated this result transmit dain reference range : 0.0 - 10.0 /100 WBCs. The reference range was not used to interpret this result as normal/abnormal . NRBC x10^3 (test code <0.01 See_Comment [Auto mated = 5044053168) message] The system which generated this result transmit dain reference range : 10*3/?L. The reference range was not used to interpret this result as normal/abnormal . GRAN MAT (NEUT) % 82.5 % (test code = 770-8) IMM GRAN % (test code 1.30 % = 8444307025) LYMPH % (test code = 7.1 % 736-9) MONO % (test code = 8.5 % 5905-5) EOS % (test code = 0.3 % 713-8) BASO % (test code = 0.3 % 706-2) GRAN MAT x10^3(ANC) 14.27 10*3/uL 1.99-6.95 H (test code = 9755439598) IMM GRAN x10^3 (test 0.23 10*3/uL 0-0.06 H code = 8468745953) LYMPH x10^3 (test code 1.23 10*3/uL 1.09-3.23 = 731-0) MONO x10^3 (test code 1.47 10*3/uL 0.36-1.02 H = 742-7) EOS x10^3 (test code = 0.05 10*3/uL 0.06-0.53 L 711-2) BASO x10^3 (test code 0.06 10*3/uL 0.01-0.09 = 704-7) Lab Interpretation Abnormal (test code = 81550-1) [facility] METABOLIC PANEL (NA, K, CL, CO2, GLUCOSE, BUN, CREATININE, CA)2020-04-28 10:15:00 Test Item Value Reference Range Interpretation Comments NA (test code = 130 mmol/L 135-145 L 4711230915) K (test code = 5.3 mmol/L 3.5-5 H 8466451304) CL (test code = 91 mmol/L 98-108 L 1249445256) CO2 TOTAL (test code = 29 mmol/L 23-31 9256068929) AGAP (test code = 2-16 8541258020) BUN (test code = 32 mg/dL 7-23 H 4960207825) GLUCOSE (test code = 101 mg/dL 70-110 0989765433) CREATININE (test code = 0.74 mg/dL 0.6-1.25 8567654705) CALCIUM (test code = 9.5 mg/dL 8.6-10.6 3619109278) eGFR Calculation mL/min/1.73m2 (Non-) (test code = 2133728403) eGFR Calculation mL/min/1.73m2 () (test code = 4645264021) GILBERTO (test code = GILBERTO) Association of [...] tests). Lab Interpretation Abnormal (test code = 96189-0) [facility] 10:12:00 Test Item Value Reference Range Interpretation Comments MAGNESIUM (test code = 1525506906) 2.3 mg/dL 1.7-2.4 Lab Interpretation (test code = Normal 01225-7) [facility] WITH [id number] 09:55:00 Test Item Value Reference Range Interpretation [...] RDW-SD (test code = 45.1 fL 38.5-51.6 66394-7) RDW-CV (test code = 14.7 % 12.1-15.4 788-0) PLT (test code = See_Comment H [Automated 777-3) message] The system which generated this result transmit dain reference range : 150 - 328 10*3/ ?L. The reference range was not u sed to interpret th is result as normal/abnormal . MPV (test code = 9.5 fL 9.8-13 L 58165-3) NRBC/100 WBC (test See_Comment [Automat ed code = 4055622619) message] The system which generated this result transmit dain reference range : 0.0 - 10.0 /100 WBCs. The reference range was not used to interpret this result as normal/abnormal . NRBC x10^3 (test code <0.01 See_Comment [Auto mated = 8093745213) message] The system which generated this result transmit dain reference range : 10*3/?L. The reference range was not used to interpret this result as normal/abnormal . GRAN MAT (NEUT) % 81.1 % (test code = 770-8) IMM GRAN % (test code 1.40 % = 2820894216) LYMPH % (test code = 8.6 % 736-9) MONO % (test code = 7.9 % 5905-5) EOS % (test code = 0.5 % 713-8) BASO % (test code = 0.5 % 706-2) GRAN MAT x10^3(ANC) 14.68 10*3/uL 1.99-6.95 H (test code = 0075439489) IMM GRAN x10^3 (test 0.25 10*3/uL 0-0.06 H code = 1230036242) LYMPH x10^3 (test code 1.55 10*3/uL 1.09-3.23 = 731-0) MONO x10^3 (test code 1.43 10*3/uL 0.36-1.02 H = 742-7) EOS x10^3 (test code = 0.09 10*3/uL 0.06-0.53 711-2) BASO x10^3 (test code 0.09 10*3/uL 0.01-0.09 = 704-7) Lab Interpretation Abnormal (test code = 87431-2) [facility] METABOLIC PANEL (NA, K, CL, CO2, GLUCOSE, BUN, CREATININE, CA)2020-04-27 10:20:00 Test Item Value Reference Range Interpretation Comments NA (test code = 130 mmol/L 135-145 L 3827245872) K (test code = 4.5 mmol/L 3.5-5 9052532433) CL (test code = 93 mmol/L 98-108 L 5758180574) CO2 TOTAL (test code = 28 mmol/L 23-31 6695997469) AGAP (test code = 2-16 8053188805) BUN (test code = 31 mg/dL 7-23 H 6737103091) GLUCOSE (test code = 102 mg/dL 70-110 8503949197) CREATININE (test code = 0.81 mg/dL 0.6-1.25 7251455506) CALCIUM (test code = 9.0 mg/dL 8.6-10.6 4883325682) eGFR Calculation mL/min/1.73m2 (Non-) (test code = 6570685452) eGFR Calculation mL/min/1.73m2 () (test code = 5173018605) GILBERTO (test code = GILBERTO) Association of [...] tests). Lab Interpretation Abnormal (test code = 25112-4) [facility] 10:20:00 Test Item Value Reference Range Interpretation Comments MAGNESIUM (test code = 8659066613) 2.2 mg/dL 1.7-2.4 Lab Interpretation (test code = Normal 64188-3) [facility] WITH [id number] 09:49:00 Test Item Value Reference Range Interpretation [...] RDW-SD (test code = 45.2 fL 38.5-51.6 72810-2) RDW-CV (test code = 14.5 % 12.1-15.4 788-0) PLT (test code = See_Comment H [Automated 777-3) message] The system which generated this result transmit dain reference range : 150 - 328 10*3/ ?L. The reference range was not u sed to interpret th is result as normal/abnormal . MPV (test code = 9.0 fL 9.8-13 L 39307-2) NRBC/100 WBC (test See_Comment [Automat ed code = 9432940980) message] The system which generated this result transmit dain reference range : 0.0 - 10.0 /100 WBCs. The reference range was not used to interpret this result as normal/abnormal . NRBC x10^3 (test code <0.01 See_Comment [Auto mated = 8967657100) message] The system which generated this result transmit dain reference range : 10*3/?L. The reference range was not used to interpret this result as normal/abnormal . GRAN MAT (NEUT) % 80.9 % (test code = 770-8) IMM GRAN % (test code 1.30 % = 9652393984) LYMPH % (test code = 8.9 % 736-9) MONO % (test code = 7.7 % 5905-5) EOS % (test code = 0.6 % 713-8) BASO % (test code = 0.6 % 706-2) GRAN MAT x10^3(ANC) 13.18 10*3/uL 1.99-6.95 H (test code = 9877752303) IMM GRAN x10^3 (test 0.21 10*3/uL 0-0.06 H code = 6596181338) LYMPH x10^3 (test code 1.45 10*3/uL 1.09-3.23 = 731-0) MONO x10^3 (test code 1.26 10*3/uL 0.36-1.02 H = 742-7) EOS x10^3 (test code = 0.09 10*3/uL 0.06-0.53 711-2) BASO x10^3 (test code 0.10 10*3/uL 0.01-0.09 H = 704-7) Lab Interpretation Abnormal (test code = 66161-3) [facility] (NA, K, CL, CO2, GLUCOSE, BUN, CREATININE, CA)2020-04-26 11:29:00 Test Item Value Reference Range Interpretation Comments NA (test code = 133 mmol/L 135-145 L 5540058791) K (test code = 4.7 mmol/L 3.5-5 8137866607) CL (test code = 98 mmol/L 98-108 0663538952) CO2 TOTAL (test code = 25 mmol/L 23-31 6318988263) AGAP (test code = 2-16 9165321654) BUN (test code = 26 mg/dL 7-23 H 9708947085) GLUCOSE (test code = 97 mg/dL 70-110 2293375471) CREATININE (test code = 0.73 mg/dL 0.6-1.25 2856448190) CALCIUM (test code = 8.7 mg/dL 8.6-10.6 8864453042) eGFR Calculation mL/min/1.73m2 (Non-) (test code = 8173737002) eGFR Calculation mL/min/1.73m2 () (test code = 6082542878) GILBERTO (test code = GILBERTO) Association of [...] tests). Lab Interpretation Abnormal (test code = 31981-1) [facility] 11:29:00 Test Item Value Reference Range Interpretation Comments MAGNESIUM (test code = 9175325037) 2.1 mg/dL 1.7-2.4 Lab Interpretation (test code = Normal 59538-7) [facility] WITH [id number] 10:27:00 Test Item Value Reference Range Interpretation Comments WBC (test code = See_Comment H [Automated 3690-2) message] The system which generated this result transmit dian reference range : 4.20 - 10.70 10*3/?L. [...] RDW-SD (test code = 45.4 fL 38.5-51.6 87695-1) RDW-CV (test code = 14.5 % 12.1-15.4 788-0) PLT (test code = See_Comment H [Automated 777-3) message] The system which generated this result transmit dain reference range : 150 - 328 10*3/ ?L. The reference range was not u sed to interpret th is result as normal/abnormal . MPV (test code = 9.3 fL 9.8-13 L 42129-4) NRBC/100 WBC (test See_Comment [Automat ed code = 0111676160) message] The system which generated this result transmit dain reference range : 0.0 - 10.0 /100 WBCs. The reference range was not used to interpret this result as normal/abnormal . NRBC x10^3 (test code <0.01 See_Comment [Auto mated = 4884721660) message] The system which generated this result transmit dain reference range : 10*3/?L. The reference range was not used to interpret this result as normal/abnormal . GRAN MAT (NEUT) % 79.6 % (test code = 770-8) IMM GRAN % (test code 1.30 % = 4039106055) LYMPH % (test code = 8.6 % 736-9) MONO % (test code = 9.3 % 5905-5) EOS % (test code = 0.8 % 713-8) BASO % (test code = 0.4 % 706-2) GRAN MAT x10^3(ANC) 12.46 10*3/uL 1.99-6.95 H (test code = 9777444500) IMM GRAN x10^3 (test 0.21 10*3/uL 0-0.06 H code = 5176291257) LYMPH x10^3 (test code 1.34 10*3/uL 1.09-3.23 = 731-0) MONO x10^3 (test code 1.45 10*3/uL 0.36-1.02 H = 742-7) EOS x10^3 (test code = 0.13 10*3/uL 0.06-0.53 711-2) BASO x10^3 (test code 0.07 10*3/uL 0.01-0.09 = 704-7) Lab Interpretation Abnormal (test code = 28557-6) [facility] METABOLIC PANEL (NA, K, CL, CO2, GLUCOSE, BUN, CREATININE, CA)2020-04-25 10:03:00 Test Item Value Reference Range Interpretation Comments NA (test code = 133 mmol/L 135-145 L 4776778468) K (test code = 4.6 mmol/L 3.5-5 9568879843) CL (test code = 96 mmol/L 98-108 L 9935694699) CO2 TOTAL (test code = 27 mmol/L 23-31 1414598984) AGAP (test code = 2-16 9888318574) BUN (test code = 21 mg/dL 7-23 9539229308) GLUCOSE (test code = 108 mg/dL 70-110 3977792219) CREATININE (test code = 0.76 mg/dL 0.6-1.25 2570210515) CALCIUM (test code = 9.5 mg/dL 8.6-10.6 0922991097) eGFR Calculation mL/min/1.73m2 (Non-) (test code = 5926527459) eGFR Calculation mL/min/1.73m2 () (test code = 0129004514) GIBLERTO (test code = GILBERTO) Association of [...] tests). Lab Interpretation Abnormal (test code = 24299-4) [facility] 10:03:00 Test Item Value Reference Range Interpretation Comments MAGNESIUM (test code = 2916519071) 2.4 mg/dL 1.7-2.4 Lab Interpretation (test code = Normal 46543-0) [facility] WITH [id number] 09:48:00 Test Item Value Reference Range Interpretation [...] RDW-SD (test code = 45.7 fL 38.5-51.6 99713-7) RDW-CV (test code = 14.3 % 12.1-15.4 788-0) PLT (test code = See_Comment HH [Automated 777-3) message] The system which generated this result transmit dain reference range : 150 - 328 10*3/ ?L. The reference range was not u sed to interpret th is result as normal/abnormal . MPV (test code = 9.1 fL 9.8-13 L 43022-3) NRBC/100 WBC (test See_Comment [Automat ed code = 7063137913) message] The system which generated this result transmit dain reference range : 0.0 - 10.0 /100 WBCs. The reference range was not used to interpret this result as normal/abnormal . NRBC x10^3 (test code <0.01 See_Comment [Auto mated = 3457636947) message] The system which generated this result transmit dain reference range : 10*3/?L. The reference range was not used to interpret this result as normal/abnormal . GRAN MAT (NEUT) % 78.9 % (test code = 770-8) IMM GRAN % (test code 1.70 % = 4062182740) LYMPH % (test code = 8.7 % 736-9) MONO % (test code = 9.1 % 5905-5) EOS % (test code = 0.9 % 713-8) BASO % (test code = 0.7 % 706-2) GRAN MAT x10^3(ANC) 11.96 10*3/uL 1.99-6.95 H (test code = 4411814996) IMM GRAN x10^3 (test 0.26 10*3/uL 0-0.06 H code = 7758670546) LYMPH x10^3 (test code 1.32 10*3/uL 1.09-3.23 = 731-0) MONO x10^3 (test code 1.38 10*3/uL 0.36-1.02 H = 742-7) EOS x10^3 (test code = 0.13 10*3/uL 0.06-0.53 711-2) BASO x10^3 (test code 0.11 10*3/uL 0.01-0.09 H = 704-7) Lab Interpretation Abnormal (test code = 12535-7) [facility] WITH [id number] 10:40:00 Test Item Value Reference Range Interpretation [...] RDW-SD (test code = 46.3 fL 38.5-51.6 19934-6) RDW-CV (test code = 14.5 % 12.1-15.4 788-0) PLT (test code = See_Comment HH [Automated 777-3) message] The sy stem which generated this result transmitted reference range : 150 - 328 10*3/ ?L. The reference r meredith was not used to interpret this result as normal/abnormal . MPV (test code = 9.1 fL 9.8-13 L 32697-9) NRBC/100 WBC (test See_Comment [Automat ed code = 5977426149) message] The system which generated this result transmitted reference range : 0.0 - 10.0 /100 WBCs. The refer ence range was not u sed to interpret th is result as normal/abnormal . NRBC x10^3 (test code <0.01 See_Comment [Auto mated = 7824574970) message] The s ystem which generated this result transmitted reference range : 10*3/?L. The reference range was not used to interpret this result as normal/abnormal . GRAN MAT (NEUT) % 74.7 % (test code = 770-8) IMM GRAN % (test code 2.00 % = 5219267293) LYMPH % (test code = 10.0 % 736-9) MONO % (test code = 11.4 % 5905-5) EOS % (test code = 1.3 % 713-8) BASO % (test code = 0.6 % 706-2) GRAN MAT x10^3(ANC) 9.44 10*3/uL 1.99-6.95 H (test code = 3555874889) IMM GRAN x10^3 (test 0.25 10*3/uL 0-0.06 H code = 0035400017) LYMPH x10^3 (test code 1.26 10*3/uL 1.09-3.23 = 731-0) MONO x10^3 (test code 1.44 10*3/uL 0.36-1.02 H = 742-7) EOS x10^3 (test code = 0.16 10*3/uL 0.06-0.53 711-2) BASO x10^3 (test code 0.07 10*3/uL 0.01-0.09 = 704-7) Lab Interpretation Abnormal (test code = 93185-8) [facility] METABOLIC PANEL (NA, K, CL, CO2, GLUCOSE, BUN, CREATININE, CA)2020-04-24 10:39:00 Test Item Value Reference Range Interpretation Comments NA (test code = 133 mmol/L 135-145 L 5519854470) K (test code = 4.3 mmol/L 3.5-5 0698378525) CL (test code = 99 mmol/L 98-108 6078422209) CO2 TOTAL (test code = 29 mmol/L 23-31 5189989614) AGAP (test code = 2-16 9180162862) BUN (test code = 20 mg/dL 7-23 7657887966) GLUCOSE (test code = 109 mg/dL 70-110 6765599019) CREATININE (test code = 0.78 mg/dL 0.6-1.25 4274285581) CALCIUM (test code = 8.4 mg/dL 8.6-10.6 L 1206593394) eGFR Calculation mL/min/1.73m2 (Non-) (test code = 1776995377) eGFR Calculation mL/min/1.73m2 () (test code = 6726524467) GILBERTO (test code = GILBERTO) Association of [...] tests). Lab Interpretation Abnormal (test code = 04226-4) [facility] 10:39:00 Test Item Value Reference Range Interpretation Comments MAGNESIUM (test code = 4632007818) 2.2 mg/dL 1.7-2.4 Lab Interpretation (test code = Normal 79237-5) [facility] ABDOMEN PELVIS W [id number] 09:30:06 1. ?Overall, no significant change in [...] reviewed this study and agree with theabove report.[facility] THORAX W [id number] 03:46:28 Acute pulmonary emboli in the anterior [...] andmorphology. No significant pericardial thickening or effusion. Paflxrfd-hm-peuxl cardiomediastinal shift. Scattered subcentimeter mediastinal and bilateral [...] andmorphology. No significant pericardial thickening or effusion. Ftfxpmns-yl-iulrz cardiomediastinal shift.Scattered subcentimeter mediastinal and bilateral hilar [...] reviewed this study and agree with theabove report.[facility]OVID[facility] (ID NOW RAPID TESTING)2020-04-23 17:45:00 Test Item Value Reference Range Interpretation Comments SARS-CoV-2 Rapid ID NOW Not Detected Not Detected (test code = 71120-9) GILBERTO (test code = GILBERTO) ID NOW COVID-19 Assay is an isothermal nucleic acid amplification test intended for the qualitative detection of nucleic acid from SARS-CoV-2 viral RNA in nasopharyngeal ([employer]) specimens. It is used under Emergency Use [...] indicated. Lab Interpretation Normal (test code = 30607-9) [facility]2020-08-31 17:40:00 Test Item Value Reference Range Interpretation Comments PALB (test code = 18807-5) 11.8 mg/dL 18-45 L Lab Interpretation (test code = Abnormal 65074-0) [facility]XR CHEST 1 [id number] 15:00:55 Stable appearance of left pleural effusion [...] reviewed this study and agree with theabove report.[facility] CampusPOTASSIUM [id number] 14:14:00 Test Item Value Reference Range Interpretation Comments K (test code = 5084931096) 4.8 mmol/L 3.5-5 Lab Interpretation (test code = Normal 38805-9) [facility]CBC WITH [id number] 11:30:00 Test Item Value Reference Range Interpretation [...] RDW-SD (test code = 45.0 fL 38.5-51.6 13421-2) RDW-CV (test code = 14.5 % 12.1-15.4 788-0) PLT (test code = See_Comment HH [Automated 777-3) message] The sy stem which generated this result transmitted reference range : 150 - 328 10*3/ ?L. The reference r meredith was not used to interpret this result as normal/abnormal . MPV (test code = 9.4 fL 9.8-13 L 51760-9) IPF % (test code = 1.6 % 1.2-10.7 Platelet count 1050435440) measured by fluorescence method. NRBC/100 WBC (test See_Comment [Automat ed code = 8047106138) message] The system which generated this result transmitted reference range : 0.0 - 10.0 /100 WBCs. The refer ence range was not u sed to interpret th is result as normal/abnormal . NRBC x10^3 (test code <0.01 See_Comment [Auto mated = 9062974092) message] The s ystem which generated this result transmitted reference range : 10*3/?L. The reference range was not used to interpret this result as normal/abnormal . GRAN MAT (NEUT) % 73.4 % (test code = 770-8) IMM GRAN % (test code 1.80 % = 0550145650) LYMPH % (test code = 12.6 % 736-9) MONO % (test code = 10.8 % 5905-5) EOS % (test code = 1.0 % 713-8) BASO % (test code = 0.4 % 706-2) GRAN MAT x10^3(ANC) 9.57 10*3/uL 1.99-6.95 H (test code = 6267515441) IMM GRAN x10^3 (test 0.24 10*3/uL 0-0.06 H code = 4363098244) LYMPH x10^3 (test code 1.64 10*3/uL 1.09-3.23 = 731-0) MONO x10^3 (test code 1.41 10*3/uL 0.36-1.02 H = 742-7) EOS x10^3 (test code = 0.13 10*3/uL 0.06-0.53 711-2) BASO x10^3 (test code 0.05 10*3/uL 0.01-0.09 = 704-7) Lab Interpretation Abnormal (test code = 14380-6) [facility] METABOLIC PANEL (NA, K, CL, CO2, GLUCOSE, BUN, CREATININE, CA)2020-04-23 10:52:00 Test Item Value Reference Range Interpretation Comments NA (test code = 132 mmol/L 135-145 L 3808349141) K (test code = 5.7 mmol/L 3.5-5 H 7867125052) CL (test code = 97 mmol/L 98-108 L 3879908935) CO2 TOTAL (test code = 26 mmol/L 23-31 4361236744) AGAP (test code = 2-16 1313744308) BUN (test code = 34 mg/dL 7-23 H 7259882824) GLUCOSE (test code = 101 mg/dL 70-110 9373376616) CREATININE (test code = 0.85 mg/dL 0.6-1.25 9934714971) CALCIUM (test code = 9.0 mg/dL 8.6-10.6 2720953018) eGFR Calculation mL/min/1.73m2 (Non-) (test code = 6884400796) eGFR Calculation mL/min/1.73m2 () (test code = 3042498274) GILBERTO (test code = GILBERTO) Association of [...] tests). Lab Interpretation Abnormal (test code = 95102-1) [facility]2020-08-31 10:52:00 Test Item Value Reference Range Interpretation Comments MAGNESIUM (test code = 3145430178) 2.3 mg/dL 1.7-2.4 Lab Interpretation (test code = Normal 18171-1) [facility] 1 [id number] 13:26:55 FINDINGS/IMPRESSION: 1. ?A left pigtail chest [...] pleural effusion COMPARISON: Chest x-ray on 04/21/2020 [facility], Radiant Results Inft User - [...] reviewed this study and agree with theabove report.[facility] 1 VW 2020-04-22 13:24:27FINDINGS/IMPRESSION: 1. ?A [...] in bed COMPARISON: Chest x-ray on 04/20/2020 [facility], Radiant Results Inft User - 04/22/2020 8:25 [...] this study and agree with theabove report. [facility] METABOLIC PANEL (NA, K, CL, CO2, GLUCOSE, BUN, CREATININE, CA)2020-04-22 11:49:00 Test Item Value Reference Range Interpretation Comments NA (test code = 132 mmol/L 135-145 L 7822484916) K (test code = 4.7 mmol/L 3.5-5 1125101297) CL (test code = 97 mmol/L 98-108 L 2290553008) CO2 TOTAL (test code = 30 mmol/L 23-31 0252274014) AGAP (test code = 2-16 4145095364) BUN (test code = 28 mg/dL 7-23 H 9293478955) GLUCOSE (test code = 117 mg/dL 70-110 H 4949846184) CREATININE (test code = 0.88 mg/dL 0.6-1.25 3264337370) CALCIUM (test code = 8.8 mg/dL 8.6-10.6 3881100587) eGFR Calculation mL/min/1.73m2 (Non-) (test code = 8945968068) eGFR Calculation mL/min/1.73m2 () (test code = 0144124501) GILBERTO (test code = GILBERTO) Association of [...] tests). Lab Interpretation Abnormal (test code = 97815-0) [facility]2020-08-30 11:49:00 Test Item Value Reference Range Interpretation Comments MAGNESIUM (test code = 2044403272) 2.4 mg/dL 1.7-2.4 Lab Interpretation (test code = Normal 17282-7) [facility] WITH [id number] 11:23:00 Test Item Value Reference Range Interpretation [...] RDW-SD (test code = 44.9 fL 38.5-51.6 35912-0) RDW-CV (test code = 14.4 % 12.1-15.4 788-0) PLT (test code = See_Comment HH [Automated 777-3) message] The sy stem which generated this result transmitted reference range : 150 - 328 10*3/ ?L. The reference r meredith was not used to interpret this result as normal/abnormal . MPV (test code = 9.5 fL 9.8-13 L 90622-5) NRBC/100 WBC (test See_Comment [Automat ed code = 5308528356) message] The system which generated this result transmitted reference range : 0.0 - 10.0 /100 WBCs. The refer ence range was not u sed to interpret th is result as normal/abnormal . NRBC x10^3 (test code <0.01 See_Comment [Auto mated = [id number]) message] The s ystem which generated this result transmitted reference range : 10*3/?L. The reference range was not used to interpret this result as normal/abnormal . GRAN MAT (NEUT) % 80.3 % (test code = 770-8) IMM GRAN % (test code 1.50 % = [id number]) LYMPH % (test code = 7.2 % 736-9) MONO % (test code = 9.7 % 5905-5) EOS % (test code = 0.7 % 713-8) BASO % (test code = 0.6 % 706-2) GRAN MAT x10^3(ANC) 9.99 10*3/uL 1.99-6.95 H (test code = [id number]) IMM GRAN x10^3 (test 0.19 10*3/uL 0-0.06 H code = [id number]) LYMPH x10^3 (test code 0.90 10*3/uL 1.09-3.23 L = 731-0) MONO x10^3 (test code 1.21 10*3/uL 0.36-1.02 H = 742-7) EOS x10^3 (test code = 0.09 10*3/uL 0.06-0.53 711-2) BASO x10^3 (test code 0.07 10*3/uL 0.01-0.09 = 704-7) Lab Interpretation Abnormal (test code = 00235-6) [facility] WITH [id number] 14:15:00 Test Item Value Reference Range Interpretation [...] RDW-SD (test code = 44.4 fL 38.5-51.6 45574-1) RDW-CV (test code = 14.2 % 12.1-15.4 788-0) PLT (test code = See_Comment HH [Automated 777-3) message] The sy stem which generated this result transmitted reference range : 150 - 328 10*3/ ?L. The reference r meredith was not used to interpret this result as normal/abnormal . MPV (test code = 9.0 fL 9.8-13 L 55440-9) NRBC/100 WBC (test See_Comment [Automat ed code = [id number]) message] The system which generated this result transmitted reference range : 0.0 - 10.0 /100 WBCs. The refer ence range was not u sed to interpret th is result as normal/abnormal . NRBC x10^3 (test code <0.01 See_Comment [Auto mated = [id number]) message] The s [employer] which generated this result transmitted reference range : 10*3/?L. The reference range was not used to interpret this result as normal/abnormal . GRAN MAT (NEUT) % 76.4 % (test code = 770-8) IMM GRAN % (test code 1.30 % = 1459933879) LYMPH % (test code = 10.9 % 736-9) MONO % (test code = 9.6 % 5905-5) EOS % (test code = 1.1 % 713-8) BASO % (test code = 0.7 % 706-2) GRAN MAT x10^3(ANC) 9.41 10*3/uL 1.99-6.95 H (test code = 6773753085) IMM GRAN x10^3 (test 0.16 10*3/uL 0-0.06 H code = 3626984135) LYMPH x10^3 (test code 1.34 10*3/uL 1.09-3.23 = 731-0) MONO x10^3 (test code 1.18 10*3/uL 0.36-1.02 H = 742-7) EOS x10^3 (test code = 0.13 10*3/uL 0.06-0.53 711-2) BASO x10^3 (test code 0.08 10*3/uL 0.01-0.09 = 704-7) Lab Interpretation Abnormal (test code = 86309-7) [facility] METABOLIC PANEL (NA, K, CL, CO2, GLUCOSE, BUN, CREATININE, CA)2020-04-21 13:47:00 Test Item Value Reference Range Interpretation Comments NA (test code = 130 mmol/L 135-145 L 7023315000) K (test code = 4.8 mmol/L 3.5-5 4309772596) CL (test code = 95 mmol/L 98-108 L 4756578047) CO2 TOTAL (test code = 29 mmol/L 23-31 8202366041) AGAP (test code = 2-16 7739057111) BUN (test code = 25 mg/dL 7-23 H 1173967463) GLUCOSE (test code = 98 mg/dL 70-110 0652606990) CREATININE (test code = 0.78 mg/dL 0.6-1.25 3160440147) CALCIUM (test code = 8.2 mg/dL 8.6-10.6 L 4689827807) eGFR Calculation mL/min/1.73m2 (Non-) (test code = 9160157256) eGFR Calculation mL/min/1.73m2 () (test code = 6837547808) GILBERTO (test code = GILBERTO) Association of [...] tests). Lab Interpretation Abnormal (test code = 30900-1) [facility] 13:47:00 Test Item Value Reference Range Interpretation Comments MAGNESIUM (test code = 8626005475) 2.1 mg/dL 1.7-2.4 Lab Interpretation (test code = Normal 77140-3) [facility]PRE[facility]IN2020-08-28 21:30:00 Test Item Value Reference Range Interpretation Comments PALB (test code = 43682-7) 9.3 mg/dL 18-45 L Lab Interpretation (test code = Abnormal 06727-9) [facility] CampusBody Fluid [id number] 14:32:00 Test Item Value Reference Range Interpretation Comments BODY FLUID CULT No organisms isolated (test code = 611-4) Gram stain (test Occasional (Rare) code = 664-3) Polymorphonuclear leukocytes [facility] CampusXR CHEST 1 [id number] 13:09:21EXAM: XR CHEST 1 VW HISTORY: ct [...] The heart and great vessels are normal. [facility]BAS[facility] MET[facility]OLIC PANEL (NA, K, CL, CO2, GLUCOSE, BUN, CREATININE, CA)2020-04-20 11:00:00 Test Item Value Reference Range Interpretation Comments NA (test code = 132 mmol/L 135-145 L 7867461990) K (test code = 5.2 mmol/L 3.5-5 H 4997522853) CL (test code = 100 mmol/L 98-108 9172883848) CO2 TOTAL (test code = 24 mmol/L 23-31 4396147609) AGAP (test code = 2-16 4063432668) BUN (test code = 19 mg/dL 7-23 3469014623) GLUCOSE (test code = 121 mg/dL 70-110 H 8339752182) CREATININE (test code = 0.77 mg/dL 0.6-1.25 8325048880) CALCIUM (test code = 8.2 mg/dL 8.6-10.6 L 1868640288) eGFR Calculation mL/min/1.73m2 (Non-) (test code = 1835767131) eGFR Calculation mL/min/1.73m2 () (test code = 7594820903) GILBERTO (test code = GILBERTO) Association of [...] tests). Lab Interpretation Abnormal (test code = 54334-5) [facility]MAG[facility]2020-08-28 11:00:00 Test Item Value Reference Range Interpretation Comments MAGNESIUM (test code = 1461699352) 2.1 mg/dL 1.7-2.4 Lab Interpretation (test code = Normal 70552-0) [facility]PHOSPHORUS2020-08-28 11:00:00 Test Item Value Reference Range Interpretation Comments PHOSPHORUS (test code = 1589928564) 3.9 mg/dL 2.5-5 Lab Interpretation (test code = Normal 04597-1) [facility] CampusCB WITH [id number] 10:23:00 Test Item Value Reference Range Interpretation [...] RDW-SD (test code = 45.2 fL 38.5-51.6 41876-1) RDW-CV (test code = 14.2 % 12.1-15.4 788-0) PLT (test code = See_Comment HH [Automated 777-3) message] The system which generated this result transmit dain reference range : 150 - 328 10*3/ ?L. The reference range was not u sed to interpret th is result as normal/abnormal . MPV (test code = 9.3 fL 9.8-13 L 90359-6) NRBC/100 WBC (test See_Comment [Automat ed code = 5745969490) message] The system which generated this result transmit dain reference range : 0.0 - 10.0 /100 WBCs. The reference range was not used to interpret this result as normal/abnormal . NRBC x10^3 (test code <0.01 See_Comment [Auto mated = 0003150137) message] The system which generated this result transmit dain reference range : 10*3/?L. The reference range was not used to interpret this result as normal/abnormal . GRAN MAT (NEUT) % 79.8 % (test code = 770-8) IMM GRAN % (test code 1.50 % = 9186766985) LYMPH % (test code = 9.8 % 736-9) MONO % (test code = 7.5 % 5905-5) EOS % (test code = 0.6 % 713-8) BASO % (test code = 0.8 % 706-2) GRAN MAT x10^3(ANC) 10.64 10*3/uL 1.99-6.95 H (test code = 4720314836) IMM GRAN x10^3 (test 0.20 10*3/uL 0-0.06 H code = 6683003252) LYMPH x10^3 (test code 1.31 10*3/uL 1.09-3.23 = 731-0) MONO x10^3 (test code 1.00 10*3/uL 0.36-1.02 = 742-7) EOS x10^3 (test code = 0.08 10*3/uL 0.06-0.53 711-2) BASO x10^3 (test code 0.10 10*3/uL 0.01-0.09 H = 704-7) Lab Interpretation Abnormal (test code = 44311-6) [facility] CampusXR CHEST 1 [id number] 12:25:53 No residual pleural effusion noted. Preliminary [...] reviewed this study and agree with theabove report.[facility] (NA, K, CL, CO2, GLUCOSE, BUN, CREATININE, CA)2020-04-19 11:09:00 Test Item Value Reference Range Interpretation Comments NA (test code = 133 mmol/L 135-145 L 7857898205) K (test code = 4.2 mmol/L 3.5-5 0456572559) CL (test code = 101 mmol/L 98-108 9546761055) CO2 TOTAL (test code = 26 mmol/L 23-31 2749926207) AGAP (test code = 2-16 1671365200) BUN (test code = 15 mg/dL 7-23 2346465468) GLUCOSE (test code = 113 mg/dL 70-110 H 5684637859) CREATININE (test code = 0.73 mg/dL 0.6-1.25 1218596435) CALCIUM (test code = 8.1 mg/dL 8.6-10.6 L 3832649732) eGFR Calculation mL/min/1.73m2 (Non-) (test code = 7429157762) eGFR Calculation mL/min/1.73m2 () (test code = 9638796169) GILBERTO (test code = GILBERTO) Association of [...] tests). Lab Interpretation Abnormal (test code = 58011-1) [facility]MAG[facility]UM2020-08-27 11:09:00 Test Item Value Reference Range Interpretation Comments MAGNESIUM (test code = 8454745955) 2.1 mg/dL 1.7-2.4 Lab Interpretation (test code = Normal 16179-5) [facility]PHOSPHORUS2020-08-27 11:09:00 Test Item Value Reference Range Interpretation Comments PHOSPHORUS (test code = 6498197648) 3.9 mg/dL 2.5-5 Lab Interpretation (test code = Normal 58255-9) [facility] CampusCB WITH [id number] 10:59:00 Test Item Value Reference Range Interpretation [...] RDW-SD (test code = 46.0 fL 38.5-51.6 52508-1) RDW-CV (test code = 14.2 % 12.1-15.4 788-0) PLT (test code = See_Comment HH [Automated 777-3) message] The sy stem which generated this result transmitted reference range : 150 - 328 10*3/ ?L. The reference r meredith was not used to interpret this result as normal/abnormal . MPV (test code = 9.3 fL 9.8-13 L 31412-7) NRBC/100 WBC (test See_Comment [Automat ed code = 6821496486) message] The system which generated this result transmitted reference range : 0.0 - 10.0 /100 WBCs. The refer ence range was not u sed to interpret th is result as normal/abnormal . NRBC x10^3 (test code <0.01 See_Comment [Auto mated = 5542491107) message] The s ystem which generated this result transmitted reference range : 10*3/?L. The reference range was not used to interpret this result as normal/abnormal . GRAN MAT (NEUT) % 79.2 % (test code = 770-8) IMM GRAN % (test code 1.00 % = 0581663038) LYMPH % (test code = 11.4 % 736-9) MONO % (test code = 6.7 % 5905-5) EOS % (test code = 1.0 % 713-8) BASO % (test code = 0.7 % 706-2) GRAN MAT x10^3(ANC) 9.49 10*3/uL 1.99-6.95 H (test code = 1378264064) IMM GRAN x10^3 (test 0.12 10*3/uL 0-0.06 H code = 8480688065) LYMPH x10^3 (test code 1.36 10*3/uL 1.09-3.23 = 731-0) MONO x10^3 (test code 0.80 10*3/uL 0.36-1.02 = 742-7) EOS x10^3 (test code = 0.12 10*3/uL 0.06-0.53 711-2) BASO x10^3 (test code 0.08 10*3/uL 0.01-0.09 = 704-7) Lab Interpretation Abnormal (test code = 93985-6) [facility] CampusBLOOD CULTURE [id number] 22:29:00 Test Item Value Reference Range Interpretation Comments Blood Culture-Aerobic No organisms No growth Previo us (test code = 14226-5) isolated prelim inary verified result was Culture In Progress on 04/13/2020 at 06 06 CDT Blood Culture positive. No growth AA Previous Culture-Anaerobic See Blood Culture preli minary (test code = 06216-6) Workup for verifi ed result additional was Culture In information. Progress on 04/12/2020 at 18 01 CDT Lab Interpretation Abnormal (test code = 04874-1) [facility] CampusIR PLEURAL DRAINAGE WITH TUBE WITH IMAGING 2020-04-18 15:38:00Successful image guided 10 Algerian pigtail chest tube insertioninto the left pleural [...] was obtained. Prior to beginning the procedure, Marshall Protocolwas performed to confirm the patient's identity [...] pleural space. The tractwas dilated to 10 Algerian, and a 10 Algerian pigtail chest tube was insertedand coiled within [...] demonstrated a large amount of pleural fluid. [facility], Radiant Results Inft User - [...] was obtained. Prior to beginning the procedure, Marshall Protocolwas performed to confirm the patient's identity [...] pleural space. The tractwas dilated to 10 Algerian, and a 10 Algerian pigtail chest tube was insertedand coiled within [...] of pleural fluid. IMPRESSIONSuccessful image guided 10 Algerian pigtail chest tube insertioninto the left pleural space. PLAN: Post procedure chest radiograph will be obtained.[facility]XR CHEST 1 [id number] 13:37:38 Hazy left midlung opacity, may represent [...] reviewed this study and agree with the abovereport.[facility] CampusBASIC METABOLIC PANEL (NA, K, CL, CO2, GLUCOSE, BUN, CREATININE, CA)2020-04-18 11:18:00 Test Item Value Reference Range Interpretation Comments NA (test code = 134 mmol/L 135-145 L 5355094194) K (test code = 4.4 mmol/L 3.5-5 7601460765) CL (test code = 102 mmol/L 98-108 3079938859) CO2 TOTAL (test code = 26 mmol/L 23-31 8363586135) AGAP (test code = 2-16 2858748281) BUN (test code = 12 mg/dL 7-23 8944217692) GLUCOSE (test code = 106 mg/dL 70-110 4821212583) CREATININE (test code = 0.74 mg/dL 0.6-1.25 8495227795) CALCIUM (test code = 7.5 mg/dL 8.6-10.6 L 1154420193) eGFR Calculation mL/min/1.73m2 (Non-) (test code = 7274652790) eGFR Calculation mL/min/1.73m2 () (test code = 9713742037) GILBERTO (test code = GILBERTO) Association of [...] tests). Lab Interpretation Abnormal (test code = 58860-9) [facility]00 Test Item Value Reference Range Interpretation Comments MAGNESIUM (test code = 3629930876) 2.0 mg/dL 1.7-2.4 Lab Interpretation (test code = Normal 61611-0) [facility]2020-08-26 11:18:00 Test Item Value Reference Range Interpretation Comments PHOSPHORUS (test code = 2551891733) 3.4 mg/dL 2.5-5 Lab Interpretation (test code = Normal 26373-0) [facility] CampusCBC WITH [id number] 10:46:00 Test Item Value Reference Range Interpretation [...] RDW-SD (test code = 46.5 fL 38.5-51.6 01398-5) RDW-CV (test code = 14.5 % 12.1-15.4 788-0) PLT (test code = See_Comment HH [Automated 777-3) message] The system which generated this result transmit dain reference range : 150 - 328 10*3/ ?L. The reference range was not u sed to interpret th is result as normal/abnormal . MPV (test code = 9.6 fL 9.8-13 L 25312-4) NRBC/100 WBC (test See_Comment [Automat ed code = 7605306202) message] The system which generated this result transmit dain reference range : 0.0 - 10.0 /100 WBCs. The reference range was not used to interpret this result as normal/abnormal . NRBC x10^3 (test code <0.01 See_Comment [Auto mated = 2273201845) message] The system which generated this result transmit dain reference range : 10*3/?L. The reference range was not used to interpret this result as normal/abnormal . GRAN MAT (NEUT) % 82.1 % (test code = 770-8) IMM GRAN % (test code 0.90 % = 5335452030) LYMPH % (test code = 9.2 % 736-9) MONO % (test code = 6.6 % 5905-5) EOS % (test code = 0.7 % 713-8) BASO % (test code = 0.5 % 706-2) GRAN MAT x10^3(ANC) 10.02 10*3/uL 1.99-6.95 H (test code = 2802758237) IMM GRAN x10^3 (test 0.11 10*3/uL 0-0.06 H code = 0326463792) LYMPH x10^3 (test code 1.12 10*3/uL 1.09-3.23 = 731-0) MONO x10^3 (test code 0.80 10*3/uL 0.36-1.02 = 742-7) EOS x10^3 (test code = 0.08 10*3/uL 0.06-0.53 711-2) BASO x10^3 (test code 0.06 10*3/uL 0.01-0.09 = 704-7) Lab Interpretation Abnormal (test code = 70160-4) [facility] CampusBL[facility] CULTURE [id number] 20:01:00 Test Item Value Reference Range Interpretation Comments Blood Culture-Aerobic No organisms No growth Previo us (test code = 62518-4) isolated prelim inary verified result was Culture [...] Culture-Anaerobic isolated preliminar y (test code = 88415-0) verifi ed result was Culture In Progress [...] CDT Lab Interpretation Normal (test code = 93346-7) [facility] 1 [id number] 19:38:57 FINDINGS/IMPRESSION: There are 2 left-sided chest [...] effusion COMPARISON: Chest x-ray 04/17/2020, 04/16/2020, 04/09/2020 [facility], Radiant Results Inft User - 04/17/2020 2:40 [...] 2:35 PM on 04/17/[address] Mathieu Chapa.[facility] CampusCyto Pleural [id number] 17:29:00 Test Item Value Reference Range Interpretation Comments Case Report (test code Non-Gynecologic = 1586642414) Cytology ?Case: [id number] ?Authorizing Provider: ?Vance Stafford MD ?Collected: ? 04/16/2020 1650 ?Ordering Location: ? ? Surgery ([facility]C) ? Received: ?04/16/2020 1809 ?Pathologist: ? Alice Aj MD ? Specimen: ? ?PLEURAL, LEFT, EFFUSION ? Final Diagnosis (test a5eiaJMoBNQhh8bhHVYryT code = 3986845126) FuZzEwMzNcZnRuYmpcdWMx RJeqwhPaQTwch1XoX8SbAv AwMFxhbnNpXGRlZmxhbmcx FCVlWQQ9ntRfYBJeBBsfMB VmBEaiBu7srLOicUcjAkAp JLOrs6sppiILkwqrtCg8b8 soYKFgHnO8sSAhPDtsQ2vh byAyaMMsJSQvCNm8oO20II NpyG6ggRBaQYawmbTcBgZ4 WDsbDEWlLuX1YWIrmRMkOI FgR0roWSOcEEogZZHsWPpe tIUjBKE9lOpma8V8oAIqoE IorNbwGyWtZkTjKOCId5Ex IAx4wYayQ3JkBPVbFiH2sK QgUGFyYWdyYXBoIEZvbnQ7 zG35WXtrkgA4zJWdo5Gjw2 6ia031fV4cpTPbRXF2GBRm EDNooNEwPKYeZSO7PUMhiY WdE9dzIKivAM7ehtfiVZW3 MFxtYXJndDcyMFxtYXJnYj MprECdVJAstDnnXUzmw574 HAW5StNdAG2hK3Gqs0X6tA 9maXRcZGVmdGFiNzIwXGZv is3idILyMXkiv2TnRFC3fw X5gXXprHRcMGBpUF17Cbhu k7FwDeohDIS0BVNvcpWml0 Ems7voPrIrpbHfU8yzB0Vs ZHJoZWFkXHBnYnJkcmZvb3 Bef9ZwzMAtkBi1w0vtZRWs LZGliBkdj7xwQSU5PPVmL8 O1bWXam2sgTEzxLATtbBN6 ikMyHCTelETqU7LniF0jLV zbLJ7jqjq2t4pzEpTkNV6t boeit8qrIUzmRTYmHJL5Bx GaWKEzx8IanfgxQhSst0Ek bXQtRApxL44en853OKBmig JmD2bfoXElftrgsODjamqe SRqxsxP0LAWddaGuiYfrqA 6wNuXfGqPvFJjdII0kZWGd E7zirXOjLRRaCJSgL7htPe CrwL2zvSqqLKznXhUuRhWc MFxiIEEuICBQTEVVUkEsIE iGFqE2MPGTS6RLE5JUOYNZ SVMgRkxVSURccGFyICAgIC JySO8kGB7ZXWWXZRNEOS9S HKAGGuTDG88FRiDGWUwRQW 4GGHUHV7GEQVmTJ8ysRXOe ICAgICAgLSBORUdBVElWRS SQV4LtLXSYWFfTKR4SKKQB TExTXHBsYWluXGYxXGZzMj BcbGFuZzEwMzNcaGljaFxm SFaiZxYuVUYySDuiJ0zjWp FfLdGyTZOzONGCUOYAM17L WW4VPHdwDOW5x8vnoQPeGQ VgbWNtObMyXTSmOJMue8ow ZGVmbGFuZzEwMzNcZnRuYm hiqBCbXUXgOzCsw2zzm696 bMFly1kdBEEkVyO8xSXlFC HguHoqidz3iAltOxXeUEDl x4zkreKoRmDgJSUhXGDoZE KmyKCxQ564DQWpLMawd1xg v6MwXRKudUNgg0Y0SAHAIV rjNaYjG305p4gji7vcjwRi gVM4KCPmFEX3UEgodpMnzq I3SQbaaMVdDpI9PGiwiwWi VQifdbQewnSgImi2SGItK0 48ZYG2iWcpn5imPQA1PDUi JSNeYmzySw8omHHbR274UT HcUAMTCXUceRw1HYZgglTc bvIvwFGSt763V683i1nkTT WskuQvmMxPpnckr0bcN668 XHBhcGVydzEyMjQwXHBhcG QttAW2AFIyFX6kfkltOKcb XVyrWTFkveJ6IKBskIVdM4 JkKHDvNF9ghgheZEK8EAdu FHIjWYS8JoClFMDhj7Xctd d0TzPgaa3mao70SWF2d0Ym kLldGIY4HQV5UfSnKu8cnI JeRMMwKD0qXqZjrUBbOMJm jq65hLxzFTzwgjSoqZ5vEy LgBIKatPVsVLWdXO9vxFZi GFNobS5foijuYIJbApOakg soEYInrOaqmhYxFl7whEya VKY0QUffH7quzW2jNyK3PM qbE8igdQ9rXDg0ETykhAK3 TPWkmN2bGV1fnxfeh1ijTA siPRxjGXBbxfE8srN9OYTq gZRwX1VnqE3tFROcEO1ypr hsa4ltTVO1KYzhWTVeYHK0 HwJhQDAfh6Sbdyq6UwEez5 KokICfJKkqS73ad717QYHe jcZgB0tdcKOxltswjJSafk siWSbnhoE9TISqGNVxTGty XGYxXGZzMjBcbGFuZzEwMz NcaGljaFxmMVxkYmNoXGYx GQyeU3oqUnXwT4GpRGBvYb HihAVkYEvrfLT3UHSlRENm u99kqZf6XNErifprx9DqMB QveSBkfNZvzA9ivnHsh3tb APBzTYQzIHDhZ6XmWMH0fB YgZQPsgFCusVO0NW2opeWl HV5gZIZwTxbhvtQuuOZkgf ImYNExKMawa8ypQN2pDUJe pMcslM3inKB8TEIdr7bhzY LiiJNot9bee8SymzDmZJqp ODWtHHryYROdFTNzGR3zWC VpmFApzdKws5K0WujxrSRk cihiDaoscnM6UJpyblabAJ GnYEbcE4ecNzQlILLwtMoi Xsggf1BpSAVpYZCcKomtpA FyfX0= Final Diagnosis Comment o4lepIHpAFIjpZPxZvFtIZ (test code = NdKTSkf3vtPEGolGSiMvLp 2924626032) MzNcZnRuYmpcdWMxXGRlZm Wkc8sqx048yOXxd2utNJHs RnD6fZOuULUboVGlO593e1 bhe3zuinKsdJX8MOJmQIQ7 VCminuGckpJ2SQhaeVXrZv S1JFypbmAiGVwgotHaalJi Orb7CHLfQ872JHV4nWsty5 uyOMD7MAVtVOGxLvBtVj3a oPTzD657TSBtWBFHWCBnnN a6EWKqpyGgifNotFAGb795 M679d9jxMGOrthOvnPoFqb xtv1ztI652VKAmqQQhelOz QdTpRYMeeEDqcKM7ZTOiUQ 5xgxgsGWP7EXvhDWZpkwIq RPLkvLKhK2E0YaHxnVRkS7 QiPSumBDTtqny0TcGaVb9m sMUnvQG9LCnoy1cyc2fpiR IuReo5QIXnSgWhMgfsDQzf z5Uas0yqZAEjmw5cIXB8qO BpjFupj6G2fFJmAACogORq oqUzBAGkZfN6UInyOF9jqf 07RTFpCUI0ya3kaYDnnSjg qqOhxCNpHAgjN2ObADSwa9 20JFWpF6GmPEEnf1V1vhQw CsEeCTWloAM9xoH9CEPbUR x9vLLzwrY4ftCutJEcC6gn jS2uGJozWA7etmoej7khNY S2DIbsKZYpdCH7ebdiZAfs EBPkBwL9hmUwkYCeHCJpbV brZTlui411ZOF2KnDgHBJb m0ReY5HpkVbwE25pxSywR2 7xRJFozNiptQ2yqCuajT1m ZjBcZnMyNFxxbFxwbGFpbl xmMFxmczIwXGxhbmcxMDMz TJmuU9cbEfUrPWWtpNytRX bma2WvZJFqCJPpFmVmD23p RERze5sye2PxpBs8PLFqkF 3dwIQexXE6vJ9cDRyqpWac xNOrKB2ykQ8sqaGauZDfAK W9kw7ywNryhzfqBmU2HTi8 pSTqy8U5zCNxTEBuSWLwpB RdkR1uVTElo17noSI2MZ73 IEdhuLalTZ7suHAmWE5dZv 3eeXLpuYlzQZ46UPVxwUma NFjfRS45sRTgKFKoPQshZZ J9 Clinical Information Clinical Hx: ?Total (test code = colectomy complicated [id number]) . Requested per consulting surgery team. Gross Description (test y4jrmGEyVHHsdGAsMdAyIY code = 8313630269) CiGLQef1buRKAlpZDhRjSy MzNcZnRuYmpcdWMxXGRlZm Mjv5kbg091cHAvh2omMBWf YkZ3vZUoWGRmsLDuV841g9 hdh1ewmoXkiGX9OQOeXDE8 JRwlciRzykU2ZElglTNxOf D8ZGzjpjClUDsejoUemwTd Eil4NXNyY952FKP2wHdxf1 bxCFK1BHTbZJQaOqCdGc3b mXNuW651RGEeUROIRXSbzH k1JCBoukCgblFzuQOTa533 T147e1enIDSuzhQrhQqRgs ggy3anD810BOEjgAJpviWn LkQfASVljMWmrIL8NEZfZF 5sxmtxPOR7RHgxQVDstjWh BXUtcIHhX2B8BdFefYTrX6 QmFCrxJHNfebs0UzGtZe0d xEMabHZ3EKclx3wvq9gnaW KlMao2BUWbBxGpBdvaAFfp i5Bqi1ggXMUxej5uRUR4zC GzqChdo5J5jMUzGHUplFOp tgLyFUIxOkE5HLhnFE9kwp 24DCOjXHN8tn0hvJEemXey igUbaNCnBYrbT5CoYEOhh9 28ABZoX2YzWECbq3K5xlCx KzVaIGTulJI3kiT3GGYmYW i5jSLzifD4qsMdrFMgG3xw vB3lLPhrHJ7tkdqnt1tdQV D7FSmuHUYtfBP5xrhbZDzd KPAxUaT8rzZqsBSdWGKwaW vtECcfx711JOC5NeIiTNGy j8HtV8EaaXanS84gzRclK0 6hDUMvwXcbrF9taNdwzB2n ZjBcZnMyNFxxbFxwbGFpbl xmMFxmczIwXGxhbmcxMDMz CUhaX1zmIaVtEGEczFjsUJ cfr3KbIUVeWLJcHsUbCPMv PFBOFMDUJjPbLDwVTsR9NY DRG9KAN0VINVRRVZNaArhH HYChxSNdBQUcW9MvhbCzWG OiFHVwTBlpSPGzKBPkF0Mt x4VhcTDxsP85MQVwfZrdHA xwYXIgUHJlcGFyZWQgMiBz jVhgXBHvGECsIKRrKK7sT3 8yAW46SPR8xM3kaBfvUXMn abIwTJYOl19cbo07m7h5LE Y8sP7rhZlaIMYbAZMoxkO1 vC7qITcaLPL1 Embedded Images (test code = 8776328116) [facility] [id number] 13:05:21EXAM: XR CHEST 1 VW HISTORY: post [...] the chest is little different than noted yesterday.[facility] WITH [id number] 11:18:00 Test Item Value Reference Range Interpretation Comments WBC (test code = See_Comment H [Automated 1490-2) message] The system which generated this result transmit dain reference range : 4.20 - 10.70 10*3/?L. The reference range was not used to interpret this result as normal/abnormal . RBC (test code = See_Comment L [Automated 269-8) message] The system which generated [...] RDW-SD (test code = 47.8 fL 38.5-51.6 50883-3) RDW-CV (test code = 14.7 % 12.1-15.4 788-0) PLT (test code = See_Comment HH [Automated 777-3) message] The system which generated this result transmit dain reference range : 150 - 328 10*3/ ?L. The reference range was not u sed to interpret th is result as normal/abnormal . MPV (test code = 9.9 fL 9.8-13 90932-6) NRBC/100 WBC (test See_Comment [Automat ed code = 0189090256) message] The system which generated this result transmit dain reference range : 0.0 - 10.0 /100 WBCs. The reference range was not used to interpret this result as normal/abnormal . NRBC x10^3 (test code <0.01 See_Comment [Auto mated = 5242407917) message] The system which generated this result transmit dain reference range : 10*3/?L. The reference range was not used to interpret this result as normal/abnormal . GRAN MAT (NEUT) % 81.7 % (test code = 770-8) IMM GRAN % (test code 1.10 % = 1285503814) LYMPH % (test code = 9.1 % 736-9) MONO % (test code = 7.3 % 5905-5) EOS % (test code = 0.5 % 713-8) BASO % (test code = 0.3 % 706-2) GRAN MAT x10^3(ANC) 10.91 10*3/uL 1.99-6.95 H (test code = 0594306655) IMM GRAN x10^3 (test 0.15 10*3/uL 0-0.06 H code = 9878161557) LYMPH x10^3 (test code 1.21 10*3/uL 1.09-3.23 = 731-0) MONO x10^3 (test code 0.97 10*3/uL 0.36-1.02 = 742-7) EOS x10^3 (test code = 0.07 10*3/uL 0.06-0.53 711-2) BASO x10^3 (test code 0.04 10*3/uL 0.01-0.09 = 704-7) Lab Interpretation Abnormal (test code = 35034-8) [facility] METABOLIC PANEL (NA, K, CL, CO2, GLUCOSE, BUN, CREATININE, CA)2020-04-17 10:49:00 Test Item Value Reference Range Interpretation Comments NA (test code = 134 mmol/L 135-145 L 5628624311) K (test code = 4.2 mmol/L 3.5-5 0072236738) CL (test code = 103 mmol/L 98-108 1617275152) CO2 TOTAL (test code = 26 mmol/L 23-31 2491930597) AGAP (test code = 2-16 3377266861) BUN (test code = 12 mg/dL 7-23 8418964311) GLUCOSE (test code = 107 mg/dL 70-110 0960625577) CREATININE (test code = 0.74 mg/dL 0.6-1.25 7938060952) CALCIUM (test code = 7.8 mg/dL 8.6-10.6 L 9941346288) eGFR Calculation mL/min/1.73m2 (Non-) (test code = 2734132324) eGFR Calculation mL/min/1.73m2 () (test code = 0519412139) GILBERTO (test code = GILBERTO) Association of [...] tests). Lab Interpretation Abnormal (test code = 80807-8) [facility] 10:49:00 Test Item Value Reference Range Interpretation Comments MAGNESIUM (test code = 0851980200) 2.3 mg/dL 1.7-2.4 Lab Interpretation (test code = Normal 61366-5) [facility]2020-08-25 10:49:00 Test Item Value Reference Range Interpretation Comments PHOSPHORUS (test code = 6065073650) 3.8 mg/dL 2.5-5 Lab Interpretation (test code = Normal 10346-7) [facility]LD[facility] TOTAL BODY [id number] 00:37:00 Test Item Value Reference Range Interpretation Comments LDH BF (test code = 3707 U/L 8722893357) UNSPUN BODY FLUID Light Yellow COLOR (test code = 3275441580) UNSPUN BODY FLUID Clear CLARITY (test code = 2641112614) SPUN BODY FLUID Light Yellow COLOR (test code = 3630815224) SPUN BODY FLUID Clear CLARITY (test code = 4815014137) Sediment (test code The sediment volume is 0.1 = 5352233384) mLs of the total fluid volume of 3mLs and its color is white. GILBERTO (test code = Test developed and GILBERTO) characteristics determined by [facility] Laboratory Services. [facility] 1 [id number] 00:22:53 1. ?Left lower lung zone 2 [...] fortechnique. Bones: No acute osseous abnormalityis seen. [facility], Radiant Results Inft User - [...] compared to 817 with a possible small pneumothorax.[facility] CampusBODY FLUID DIRECT [id number] 00:10:00 Test Item Value Reference Range Interpretation Comments BF COLOR Light Yellow (test code = 3529777704) BF WBC Count See_Comment [Automated (test code = message] The sy stem [id number]) which generated this result transmitted reference range : /?L. The refere nce range was not u sed to interpret th is result as normal/abnormal . BF RBC Count <3000 See_Comment [Automated (test code = message] The sy stem 3489346367) which generated this result transmitted reference range : /?L. The refere nce range was not u sed to interpret th is result as normal/abnormal . GILBERTO (test The reference range code = GILBERTO) and other method performance specifications have not been established for this body fluid. ?The test results must be integrated into the clinical context for interpretation. [facility] CampusBODY FLUID MANUAL [id number] 00:10:00 Test Item Value Reference Range Interpretation Comments BF SEGS (test code = 7914987540) 78 % MACROPHAGE (test code = 6868932052) 22 % #CELS CNTD (test code = 9496734664) [facility] CampusAmylase Body [id number] 00:03:00 Test Item Value Reference Range Interpretation Comments AMYLASE BF (test 313 U/L code = 8877265706) UNSPUN BODY FLUID Yellow COLOR (test code = 7355009929) UNSPUN BODY FLUID Clear CLARITY (test code = 5884273178) SPUN BODY FLUID Yellow COLOR (test code = 8869903196) SPUN BODY FLUID Clear CLARITY (test code = 8504446649) Sediment (test code The sediment volume is = 7867763796) <0.1 mLs of the total fluid volume of 1mL and its color is red. GILBERTO (test code = Test developed and GILBERTO) characteristics determined by [facility] Laboratory Services. [facility] CampusGlucose Body [id number] 00:03:00 Test Item Value Reference Range Interpretation Comments GLUCOSE BF (test 57 mg/dL code = 8531670865) UNSPUN BODY FLUID Yellow COLOR (test code = 7813792012) UNSPUN BODY FLUID Clear CLARITY (test code = 3830949232) SPUN BODY FLUID Yellow COLOR (test code = 1531377771) SPUN BODY FLUID Clear CLARITY (test code = 3704597722) Sediment (test code The sediment volume is = 6885634524) <0.1 mLs of the total fluid volume of 1mL and its color is red. GILBERTO (test code = Test developed and GILBERTO) characteristics determined by [facility] Laboratory Services. [facility] CampusTotal Protein Body [id number] 00:03:00 Test Item Value Reference Range Interpretation Comments T.PROT BF (test 3000.0 mg/dL code = 8807620942) UNSPUN BODY FLUID Yellow COLOR (test code = 4384159506) UNSPUN BODY FLUID Clear CLARITY (test code = 2633377535) SPUN BODY FLUID Yellow COLOR (test code = 0209525476) SPUN BODY FLUID Clear CLARITY (test code = 1133573715) Sediment (test code The sediment volume is = 1219820003) <0.1 mLs of the total fluid volume of 1mL and its color is red. GILBERTO (test code = Test developed and GILBERTO) characteristics determined by [facility] Laboratory Services. [facility] CampusPH, Body [id number] 23:56:00 Test Item Value Reference Range Interpretation Comments PH BF (test code = 4953034060) UNSPUN BODY FLUID COLOR Light Yellow (test code = 0784022320) UNSPUN BODY FLUID Clear CLARITY (test code = 6588964612) SPUN BODY FLUID COLOR Light Yellow (test code = 4428786739) SPUN BODY FLUID CLARITY Clear (test code = 2365745253) Sediment (test code = The sediment volume is 5155917125) 0.1 mLs of the total fluid volume of 5.5mLs and its color is white/red. [facility] CampusIR DRAINAGE BY CATHETER PERITONEAL OR [id number] 21:10:26 Successful placement of a 12 Algerian drain in the left upper quadrantcollection. Successful placement of a 14 Algerian drain in the midline air fluidcollection. Successful placement of a 10 Algerian drain in the right lower quadrant fluidcollection. [...] those actually performingthe procedure. Please refer to [facility] regarding sedation time. RADIATION DOSE: 1957 mGy - cm. TECHNIQUE: The risks, benefits and alternatives were discussed and informed consentwas obtained. Prior to beginning the procedure, Marshall Protocol was usedto confirm the patient's identity and planned procedure. Maximum sterilebarriers including cap, mask, hand hygiene, sterile gloves, sterile gown,large sterile drape and cutaneous antisepsis were used. The anteriorabdominal wall was sterilely prepped, and draped. The skinoverlying the left upper, right upper, andright lower quadrants wasinfiltrated with lidocaine 2%. The targeted collection in the left upper quadrant was then accessed with m88-aypsi quadrant needle using CT guidance. A 0.035 Amplatz wire wasadvanced through the coaxial needle. The tract was serially dilated to 12French. A pigtail 12 Algerian catheter was placed in the left upper quadrantcollection. Approximately, 210 cc of purulent fluid was removed. The air-fluid collection in the mid abdomen was accessed through the rightupper quadrant. An 18 Algerian pigtail catheter was placed in this collectionunder CT guidance in a similar fashion to thedrain and left upperquadrant. Approximately, 1250 cc of purulent material were removed. The fluid collection in the right lower quadrant was also accessed in asimilar fashion. A 10 Algerian pigtail catheter was placed in this collectionunder [...] aspirated at the time of the procedure. [facility], Radiant Results Inft User - 04/16/2020 4:11 PM CDTEXAMINATION: PERCUTANEOUS ASPIRATIONHISTORY: 50-year-old male with postoperative abdominal fluid collections SEDATION: Moderate sedation was administered under the supervision of atrained nurse specialist who was independent from those actually performingthe procedure. Please refer to [facility] regarding sedation time.RADIATION DOSE: 1957 mGy - cm.TECHNIQUE: The risks, benefits and alternatives were d iscussed and informed consentwas obtained. Prior to beginning the procedure, Marshall Protocol was usedto confirm the patient's identity [...] serially dilated to 12French. A pigtail 12 Algerian catheter was placed in the left upper quadrantcollection. Approximately, 210 cc of purulent fluid was removed.The air-fluid collection in the mid abdomen was accessed through the rightupper quadrant. An 18 Algerian pigtail catheter was placed in this collectionunder CT guidance in a similar fa shion to the drain and left upperquadrant. Approximately, 1250 cc of purulent material were removed.The fluid collection in the right lower quadrant was also accessed in asimilar fashion. A 10 Algerian pigtail catheter was placed in this collectionunder [...] left upper quadrantcollection.Successful placement of a 14 Algerian drain in the midline air fluidcollection.Successful placement of a 10 Algerian drain in the right lower quadrant fluidcollection.Preliminary Report Dictated by Resident: Hayden Murphy the attending radiologist I was present in the room for the entirety ofthe procedure.I, Neris Grier MD., have reviewed this study and agree with the abovereport.[facility] CampusBODY FLUID CULTURE(AEROBIC/ANAEROBIC)2020-04-16 19:45:00 Test Item Value Reference Range Interpretation Comments BODY FLUID CULT 2+ Bacteroides fragillis (test code = 611-4) Gram stain (test Occasional (Rare) code = 664-3) Mononuclear cells [facility] CampusPROTHROMBIN TIME / [id number] 16:38:00 Test Item Value Reference Range Interpretation Comments PROTIME PATIENT (test See_Comment H [Auto mated message] code = 5964-2) The system [email or web address] generated this result transmitted ref erence range: 10.1 - 1 2.6 Seconds. The reference range was not used to int erpret this result as normal/abnormal . INR (test code = 6301-6) Nor mal INR <1.1; Warfarin Therap eutic range 2.0 to 3. 0 or 2.5 to 3.5, dep ending upon the indica tions. Lab Interpretation (test Abnormal code = 29438-8) [facility] CampusCT ABDOMEN PELVIS W [id number] 13:40:08Impression: 1. ?Interval placement of 4 percutaneous [...] degenerative changes and no suspicious focal lesions. [facility], Radiant Results Inft User - 04/16/2020 8:41 [...] and oral contrast seen up to the ostomy.[facility] (NA, K, CL, CO2, GLUCOSE, BUN, CREATININE, CA)2020-04-16 10:51:00 Test Item Value Reference Range Interpretation Comments NA (test code = 132 mmol/L 135-145 L 8606466783) K (test code = 4.1 mmol/L 3.5-5 6142404824) CL (test code = 103 mmol/L 98-108 2967371554) CO2 TOTAL (test code = 24 mmol/L 23-31 1725926665) AGAP (test code = 2-16 8664185464) BUN (test code = 13 mg/dL 7-23 6971567900) GLUCOSE (test code = 132 mg/dL 70-110 H 5407416428) CREATININE (test code = 0.77 mg/dL 0.6-1.25 5903760651) CALCIUM (test code = 7.4 mg/dL 8.6-10.6 L 0907751441) eGFR Calculation mL/min/1.73m2 (Non-) (test code = 0283858238) eGFR Calculation mL/min/1.73m2 () (test code = 4727218535) GILBERTO (test code = GILBERTO) Association of [...] tests). Lab Interpretation Abnormal (test code = 01200-5) [facility] CampusMAGNESIUM2020-08-24 10:51:00 Test Item Value Reference Range Interpretation Comments MAGNESIUM (test code = 9803302609) 2.2 mg/dL 1.7-2.4 Lab Interpretation (test code = Normal 45533-0) [facility] CampusPHOSPHORUS2020-08-24 10:51:00 Test Item Value Reference Range Interpretation Comments PHOSPHORUS (test code = 7576798079) 3.1 mg/dL 2.5-5 Lab Interpretation (test code = Normal 32466-7) [facility] CampusCB WITH [id number] 10:37:00 Test Item Value Reference Range Interpretation [...] RDW-SD (test code = 47.4 fL 38.5-51.6 16379-8) RDW-CV (test code = 14.7 % 12.1-15.4 788-0) PLT (test code = See_Comment H [Automated 777-3) message] The system which generated this result transmit dain reference range : 150 - 328 10*3/ ?L. The reference range was not u sed to interpret th is result as normal/abnormal . MPV (test code = 10.1 fL 9.8-13 45233-1) NRBC/100 WBC (test See_Comment [Automat ed code = 7430189232) message] The system which generated this result transmit dain reference range : 0.0 - 10.0 /100 WBCs. The reference range was not used to interpret this result as normal/abnormal . NRBC x10^3 (test code <0.01 See_Comment [Auto mated = 7429502144) message] The system which generated this result transmit dain reference range : 10*3/?L. The reference range was not used to interpret this result as normal/abnormal . GRAN MAT (NEUT) % 83.0 % (test code = 770-8) IMM GRAN % (test code 1.50 % = 2150591194) LYMPH % (test code = 7.6 % 736-9) MONO % (test code = 7.3 % 5905-5) EOS % (test code = 0.3 % 713-8) BASO % (test code = 0.3 % 706-2) GRAN MAT x10^3(ANC) 11.53 10*3/uL 1.99-6.95 H (test code = 2854592944) IMM GRAN x10^3 (test 0.21 10*3/uL 0-0.06 H code = 9256039497) LYMPH x10^3 (test code 1.05 10*3/uL 1.09-3.23 L = 731-0) MONO x10^3 (test code 1.01 10*3/uL 0.36-1.02 = 742-7) EOS x10^3 (test code = 0.04 10*3/uL 0.06-0.53 L 711-2) BASO x10^3 (test code 0.04 10*3/uL 0.01-0.09 = 704-7) Lab Interpretation Abnormal (test code = 25602-2) [facility] (NA, K, CL, CO2, GLUCOSE, BUN, CREATININE, CA)2020-04-15 11:01:00 Test Item Value Reference Range Interpretation Comments NA (test code = 132 mmol/L 135-145 L 8236742856) K (test code = 4.7 mmol/L 3.5-5 8892304424) CL (test code = 103 mmol/L 98-108 9061530304) CO2 TOTAL (test code = 22 mmol/L 23-31 L 0053860730) AGAP (test code = 2-16 6383348287) BUN (test code = 14 mg/dL 7-23 9504813429) GLUCOSE (test code = 114 mg/dL 70-110 H 3156739258) CREATININE (test code = 0.74 mg/dL 0.6-1.25 7766014797) CALCIUM (test code = 7.9 mg/dL 8.6-10.6 L 2279656562) eGFR Calculation mL/min/1.73m2 (Non-) (test code = 5422743535) eGFR Calculation mL/min/1.73m2 () (test code = 7602244722) GILBERTO (test code = GILBERTO) Association of [...] tests). Lab Interpretation Abnormal (test code = 01323-0) [facility] CampusMAGNESIUM2020-08-23 11:01:00 Test Item Value Reference Range Interpretation Comments MAGNESIUM (test code = 4338748756) 2.1 mg/dL 1.7-2.4 Lab Interpretation (test code = Normal 56286-3) [facility] CampusPHOSPHORUS2020-08-23 11:01:00 Test Item Value Reference Range Interpretation Comments PHOSPHORUS (test code = 1246185556) 3.4 mg/dL 2.5-5 Lab Interpretation (test code = Normal 25768-9) [facility] CampusCB WITH [id number] 10:46:00 Test Item Value Reference Range Interpretation Comments WBC (test code = See_Comment H [Automated 6690-2) message] The system which generated this result transmit dain reference range : 4.20 - 10.70 10*3/?L. The reference range was not used to interpret this result as normal/abnormal . RBC (test code = See_Comment L [Automated 739-8) message] The system which generated this result [...] RDW-SD (test code = 47.7 fL 38.5-51.6 53560-5) RDW-CV (test code = 15.0 % 12.1-15.4 788-0) PLT (test code = See_Comment H [Automated 777-3) message] The system which generated this result transmit dain reference range : 150 - 328 10*3/ ?L. The reference range was not u sed to interpret th is result as normal/abnormal . MPV (test code = 10.4 fL 9.8-13 78917-5) NRBC/100 WBC (test See_Comment [Automat ed code = 0473214866) message] The system which generated this result transmit dain reference range : 0.0 - 10.0 /100 WBCs. The reference range was not used to interpret this result as normal/abnormal . NRBC x10^3 (test code <0.01 See_Comment [Auto mated = 3159667694) message] The system which generated this result transmit dain reference range : 10*3/?L. The reference range was not used to interpret this result as normal/abnormal . GRAN MAT (NEUT) % 85.0 % (test code = 770-8) IMM GRAN % (test code 1.10 % = 7461109225) LYMPH % (test code = 7.2 % 736-9) MONO % (test code = 6.4 % 5905-5) EOS % (test code = 0.1 % 713-8) BASO % (test code = 0.2 % 706-2) GRAN MAT x10^3(ANC) 14.87 10*3/uL 1.99-6.95 H (test code = 7403313014) IMM GRAN x10^3 (test 0.20 10*3/uL 0-0.06 H code = 3508525742) LYMPH x10^3 (test code 1.25 10*3/uL 1.09-3.23 = 731-0) MONO x10^3 (test code 1.11 10*3/uL 0.36-1.02 H = 742-7) EOS x10^3 (test code = <0.03 0.06-0.53 L 711-2) BASO x10^3 (test code 0.03 10*3/uL 0.01-0.09 = 704-7) Lab Interpretation Abnormal (test code = 82151-0) [facility] METABOLIC PANEL (NA, K, CL, CO2, GLUCOSE, BUN, CREATININE, CA)2020-04-14 12:15:00 Test Item Value Reference Range Interpretation Comments NA (test code = 134 mmol/L 135-145 L 7340630298) K (test code = 4.9 mmol/L 3.5-5 4199122914) CL (test code = 105 mmol/L 98-108 8448705891) CO2 TOTAL (test code = 23 mmol/L 23-31 8015330921) AGAP (test code = 2-16 0243798585) BUN (test code = 16 mg/dL 7-23 7335885055) GLUCOSE (test code = 102 mg/dL 70-110 7435733332) CREATININE (test code = 0.82 mg/dL 0.6-1.25 0053375291) CALCIUM (test code = 7.9 mg/dL 8.6-10.6 L 2936986272) eGFR Calculation mL/min/1.73m2 (Non-) (test code = 1109254260) eGFR Calculation mL/min/1.73m2 () (test code = 4137377715) GILBERTO (test code = GILBERTO) Association of [...] tests). Lab Interpretation Abnormal (test code = 25086-1) [facility]MAG[facility]2020-08-22 12:15:00 Test Item Value Reference Range Interpretation Comments MAGNESIUM (test code = 5208475556) 2.1 mg/dL 1.7-2.4 Lab Interpretation (test code = Normal 27285-0) [facility]PHOSPHORUS2020-08-22 12:15:00 Test Item Value Reference Range Interpretation Comments PHOSPHORUS (test code = 1080292161) 4.2 mg/dL 2.5-5 Lab Interpretation (test code = Normal 68180-3) [facility] CampusCB WITH [id number] 11:49:00 Test Item Value Reference Range Interpretation Comments WBC (test code = See_Comment H [Automated 6690-2) message] The system which generated this result transmit dain reference range : 4.20 - 10.70 10*3/?L. The reference range was not used to interpret this result as normal/abnormal . RBC (test code = See_Comment L [Automated 199-8) message] The system which generated this result [...] RDW-SD (test code = 48.1 fL 38.5-51.6 95368-4) RDW-CV (test code = 15.1 % 12.1-15.4 788-0) PLT (test code = See_Comment H [Automated 777-3) message] The system which generated this result transmit dain reference range : 150 - 328 10*3/ ?L. The reference range was not u sed to interpret th is result as normal/abnormal . MPV (test code = 10.7 fL 9.8-13 64206-0) NRBC/100 WBC (test See_Comment [Automat ed code = 5054471217) message] The system which generated this result transmit dain reference range : 0.0 - 10.0 /100 WBCs. The reference range was not used to interpret this result as normal/abnormal . NRBC x10^3 (test code <0.01 See_Comment [Auto mated = 7760382840) message] The system which generated this result transmit dain reference range : 10*3/?L. The reference range was not used to interpret this result as normal/abnormal . GRAN MAT (NEUT) % 84.4 % (test code = 770-8) IMM GRAN % (test code 1.10 % = 8519595343) LYMPH % (test code = 7.4 % 736-9) MONO % (test code = 6.8 % 5905-5) EOS % (test code = 0.1 % 713-8) BASO % (test code = 0.2 % 706-2) GRAN MAT x10^3(ANC) 13.45 10*3/uL 1.99-6.95 H (test code = 4765152256) IMM GRAN x10^3 (test 0.18 10*3/uL 0-0.06 H code = 0348152829) LYMPH x10^3 (test code 1.18 10*3/uL 1.09-3.23 = 731-0) MONO x10^3 (test code 1.09 10*3/uL 0.36-1.02 H = 742-7) EOS x10^3 (test code = <0.03 0.06-0.53 L 711-2) BASO x10^3 (test code 0.03 10*3/uL 0.01-0.09 = 704-7) Lab Interpretation Abnormal (test code = 71993-5) [facility] TOTAL BODY [id number] 01:27:00 Test Item Value Reference Range Interpretation Comments LDH BF (test code = >6450 U/L 8068599216) UNSPUN BODY FLUID Yellow COLOR (test code = 9209441978) UNSPUN BODY FLUID Turbid CLARITY (test code = 6784971973) SPUN BODY FLUID Yellow COLOR (test code = 7460225527) SPUN BODY FLUID Clear CLARITY (test code = 0067601437) Sediment (test code The sediment volume is 0.1 = 5233158267) mLs of the total fluid volume of 5mLs and its color is Red/White. GILBERTO (test code = Test developed and GILBERTO) characteristics determined by [facility] Laboratory Services. [facility] (NA, K, CL, CO2, GLUCOSE, BUN, CREATININE, CA)2020-04-14 00:15:00 Test Item Value Reference Range Interpretation Comments NA (test code = 132 mmol/L 135-145 L 1825294347) K (test code = 5.3 mmol/L 3.5-5 H 7482712793) CL (test code = 105 mmol/L 98-108 7355167235) CO2 TOTAL (test code = 20 mmol/L 23-31 L 7994804545) AGAP (test code = 2-16 3318078035) BUN (test code = 14 mg/dL 7-23 1768491786) GLUCOSE (test code = 280 mg/dL 70-110 H 6221734631) CREATININE (test code = 0.75 mg/dL 0.6-1.25 8174321723) CALCIUM (test code = 7.4 mg/dL 8.6-10.6 L 6758703706) eGFR Calculation mL/min/1.73m2 (Non-) (test code = 5389352924) eGFR Calculation mL/min/1.73m2 () (test code = 0774040147) GILBERTO (test code = GILBERTO) Association of [...] tests). Lab Interpretation Abnormal (test code = 39257-7) [facility] WITHOUT [id number] 00:01:00 Test Item Value Reference Range Interpretation Comments WBC (test code = 6690-2) See_Comment H [A utomated message] The system [employer] generated this result transmit dain reference range : 4.20 - 10.70 10*3/?L. The reference range was not used to interpret this result as normal/abnormal . RBC (test code = 789-8) See_Comment L [Au tomated message] The system [employer] generated this result transmit dain reference range [...] See_Comment H [Au tomated message] The system [employer] generated this result transmit dain reference range : 150 - 328 10*3/?L. The reference range was not used to interpret this result as normal/abnormal . MPV (test code = 10.2 fL 9.8-13 73139-4) RDW-CV (test code = 15.3 % 12.1-15.4 788-0) RDW-SD (test code = 49.1 fL 38.5-51.6 50732-1) NRBC x10^3 (test code = <0.01 See_Comment [Au tomated message] 4401109782) The system [employer] generated this result transmit dain reference range : 10*3/?L. The reference range was not used to interpret this result as normal/abnormal . NRBC/100 WBC (test code See_Comment [Au tomated message] = 3839637038) The system [employer] generated this result transmit dain reference range : 0.0 - 10.0 /100 WBC s. The reference r meredith was not used to interpret this result as normal/abnormal . IPF % (test code = 5446541854) Lab Interpretation (test Abnormal code = 88537-5) [facility] FLUID DIRECT [id number] 23:40:00 Test Item Value Reference Range Interpretation Comments BF COLOR Yellow (test code = 1269302325) BF WBC Count See_Comment [Automated (test code = message] The sy stem 7274798162) which generated this result transmitted reference range : /?L. The refere nce range was not u sed to interpret th is result as normal/abnormal . BF RBC Count <3000 See_Comment [Automated (test code = message] The sy stem 0455889203) which generated this result transmitted reference range : /?L. The refere nce range was not u sed to interpret th is result as normal/abnormal . GILBERTO (test The reference range code = GILBERTO) and other method performance specifications have not been established for this body fluid. ?The test results must be integrated into the clinical context for interpretation. [facility] FLUID MANUAL [id number] 23:40:00 Test Item Value Reference Range Interpretation Comments BF SEGS (test code 99 % = 2710750966) BF LYMPHS (test 1 % code = 5835658232) #CELS CNTD (test code = 7963990064) GILBERTO (test code = Possible intracellular GILBERTO) bacteria. [facility] CampusGLUCOSE BODY [id number] 23:17:00 Test Item Value Reference Range Interpretation Comments GLUCOSE BF (test <20 mg/dL code = 8132638092) UNSPUN BODY FLUID Yellow COLOR (test code = 6039686286) UNSPUN BODY FLUID Turbid CLARITY (test code = 0404867992) SPUN BODY FLUID Yellow COLOR (test code = 8496305793) SPUN BODY FLUID Clear CLARITY (test code = 1215841975) Sediment (test code The sediment volume is 0.1 = 3110022961) mLs of the total fluid volume of 5mLs and its color is Red/White. GILBERTO (test code = Test developed and GILBERTO) characteristics determined by [facility] Laboratory Services. [facility] CampusT.PROTEIN BODY [id number] 22:52:00 Test Item Value Reference Range Interpretation Comments T.PROT BF (test 3000.0 mg/dL code = 1288367357) UNSPUN BODY FLUID Yellow COLOR (test code = 2358293480) UNSPUN BODY FLUID Turbid CLARITY (test code = 3786663904) SPUN BODY FLUID Yellow COLOR (test code = 2533789282) SPUN BODY FLUID Clear CLARITY (test code = 4554550368) Sediment (test code The sediment volume is 0.1 = 2599741429) mLs of the total fluid volume of 5mLs and its color is Red/White. GILBERTO (test code = Test developed and GILBERTO) characteristics determined by [facility] Laboratory Services. [facility] CampusURINE [id number] 19:44:00 Test Item Value Reference Range Interpretation Comments URINE CULTURE (test No aerobic growth (< code = 630-4) 1000 CFU/mL) [facility] CampusGRAM NEGATIVE BLOOD PATHOGENS DNA [id number] 13:23:00 Test Item Value Reference Range Interpretation Comments Enterobacter species Positive Negative A (test code = 19546-7) GILBERTO (test code = GILBERTO) See blood culture result for additional information. ?Testing included eight identification and six resistance marker targets. Lab Interpretation Abnormal (test code = 04338-9) [facility] CampusCBC WITH [id number] 12:43:00 Test Item Value Reference Range Interpretation [...] RDW-SD (test code = 49.8 fL 38.5-51.6 32076-0) RDW-CV (test code = 15.3 % 12.1-15.4 788-0) PLT (test code = See_Comment H [Automated 777-3) message] The system which generated this result transmit dain reference range : 150 - 328 10*3/ ?L. The reference range was not u sed to interpret th is result as normal/abnormal . MPV (test code = 10.7 fL 9.8-13 76005-8) NRBC/100 WBC (test See_Comment [Automat ed code = 5837273727) message] The system which generated this result transmit dain reference range : 0.0 - 10.0 /100 WBCs. The reference range was not used to interpret this result as normal/abnormal . NRBC x10^3 (test code <0.01 See_Comment [Auto mated = 3721225197) message] The system which generated this result transmit dain reference range : 10*3/?L. The reference range was not used to interpret this result as normal/abnormal . GRAN MAT (NEUT) % 81.3 % (test code = 770-8) IMM GRAN % (test code 1.40 % = 4095796121) LYMPH % (test code = 8.0 % 736-9) MONO % (test code = 8.9 % 5905-5) EOS % (test code = 0.2 % 713-8) BASO % (test code = 0.2 % 706-2) GRAN MAT x10^3(ANC) 10.74 10*3/uL 1.99-6.95 H (test code = 8413934198) IMM GRAN x10^3 (test 0.18 10*3/uL 0-0.06 H code = 7816551696) LYMPH x10^3 (test code 1.06 10*3/uL 1.09-3.23 L = 731-0) MONO x10^3 (test code 1.17 10*3/uL 0.36-1.02 H = 742-7) EOS x10^3 (test code = <0.03 0.06-0.53 L 711-2) BASO x10^3 (test code <0.03 0.01-0.09 = 704-7) Lab Interpretation Abnormal (test code = 37962-1) [facility] METABOLIC PANEL (NA, K, CL, CO2, GLUCOSE, BUN, CREATININE, CA)2020-04-13 11:57:00 Test Item Value Reference Range Interpretation Comments NA (test code = 134 mmol/L 135-145 L 3918803024) K (test code = 4.6 mmol/L 3.5-5 1050704620) CL (test code = 106 mmol/L 98-108 5938523943) CO2 TOTAL (test code = 23 mmol/L 23-31 7373213455) AGAP (test code = 2-16 1873334476) BUN (test code = 14 mg/dL 7-23 7697541990) GLUCOSE (test code = 106 mg/dL 70-110 3253033245) CREATININE (test code = 0.84 mg/dL 0.6-1.25 1928030795) CALCIUM (test code = 7.7 mg/dL 8.6-10.6 L 1677268421) eGFR Calculation mL/min/1.73m2 (Non-) (test code = 5254492682) eGFR Calculation mL/min/1.73m2 () (test code = 7656457985) GILBERTO (test code = GILBERTO) Association of [...] tests). Lab Interpretation Abnormal (test code = 60767-6) [facility] 11:57:00 Test Item Value Reference Range Interpretation Comments MAGNESIUM (test code = 4013032797) 2.1 mg/dL 1.7-2.4 Lab Interpretation (test code = Normal 92307-1) [facility]2020-08[facility]21 11:57:00 Test Item Value Reference Range Interpretation Comments PHOSPHORUS (test code = 7981514497) 3.4 mg/dL 2.5-5 Lab Interpretation (test code = Normal 89708-8) [facility] PELVIS W [id number] 00:22:08 1. ?Multiple intraperitoneal collections as detailed [...] this study and agree with the abovereport. [facility]2020-[facility]-20 23:20:00 Test Item Value Reference Range Interpretation Comments APPEARANCE (test code = Clear Clear 9634268265) COLOR (test code = Yellow Yellow 9554103524) PH (test code = 4.8-8.0 2653315466) SP GRAVITY (test code = 1.003-1.030 0519428734) GLU U QUAL (test code = Normal Normal 5781897217) BLOOD (test code = Negative Negative 4662137656) KETONES (test code = Negative Negative 1076342095) PROTEIN (test code = 30 mg/dL Negative A 2887-8) UROBILIN (test code = Normal Normal 2450502622) BILIRUBIN (test code = Negative Negative 2893449782) NITRITE (test code = Negative Negative 3395897998) LEUK ROGER (test code = Negative Negative 2453219168) RBC/HPF (test code = See_Comment [Autom ated message] 4921229813) The system [employer] generated this result transmitted ref erence range: 0 - 3 HP F. The reference range was not used to int erpret this result as normal/abnormal . WBC/HPF (test code = <1 See_Comment [Autom ated message] 9712264642) The system [employer] generated this result transmitted ref erence range: 0 - 5 HP F. The reference range was not used to int erpret this result as normal/abnormal . BACTERIA (test code = Negative Negative 7773354465) MUCOUS (test code = Slight Negative LPF A 3148978270) SQ EPITH (test code = See_Comment [Auto mated message] 3255453998) The system [employer] generated this result transmitted ref erence range: <=2 HPF. The reference range was not used to int erpret this result as normal/abnormal . Lab Interpretation (test Abnormal code = 07581-5) [facility] WITH [id number] 12:08:00 Test Item Value Reference Range Interpretation [...] RDW-SD (test code = 48.9 fL 38.5-51.6 43467-7) RDW-CV (test code = 15.4 % 12.1-15.4 788-0) PLT (test code = See_Comment [Automated 777-3) message] The sy stem which generated this result transmitted reference range : 150 - 328 10*3/ ?L. The reference r meredith was not used to interpret this result as normal/abnormal . MPV (test code = 11.2 fL 9.8-13 45140-9) NRBC/100 WBC (test See_Comment [Automat ed code = 5547667990) message] The system which generated this result transmitted reference range : 0.0 - 10.0 /100 WBCs. The refer ence range was not u sed to interpret th is result as normal/abnormal . NRBC x10^3 (test code <0.01 See_Comment [Auto mated = 9269256743) message] The s ystem which generated this result transmitted reference range : 10*3/?L. The reference range was not used to interpret this result as normal/abnormal . GRAN MAT (NEUT) % 79.9 % (test code = 770-8) IMM GRAN % (test code 1.30 % = 1186811624) LYMPH % (test code = 7.4 % 736-9) MONO % (test code = 11.0 % 5905-5) EOS % (test code = 0.2 % 713-8) BASO % (test code = 0.2 % 706-2) GRAN MAT x10^3(ANC) 9.56 10*3/uL 1.99-6.95 H (test code = 4774999499) IMM GRAN x10^3 (test 0.15 10*3/uL 0-0.06 H code = 1725898609) LYMPH x10^3 (test code 0.89 10*3/uL 1.09-3.23 L = 731-0) MONO x10^3 (test code 1.32 10*3/uL 0.36-1.02 H = 742-7) EOS x10^3 (test code = <0.03 0.06-0.53 L 711-2) BASO x10^3 (test code <0.03 0.01-0.09 = 704-7) Lab Interpretation Abnormal (test code = 39128-2) [facility] METABOLIC PANEL (NA, K, CL, CO2, GLUCOSE, BUN, CREATININE, CA)2020-04-12 10:43:00 Test Item Value Reference Range Interpretation Comments NA (test code = 133 mmol/L 135-145 L 0780816125) K (test code = 4.3 mmol/L 3.5-5 6937237294) CL (test code = 104 mmol/L 98-108 0825300591) CO2 TOTAL (test code = 22 mmol/L 23-31 L 3892601999) AGAP (test code = 2-16 4202408748) BUN (test code = 20 mg/dL 7-23 9546220906) GLUCOSE (test code = 108 mg/dL 70-110 2265737175) CREATININE (test code = 0.77 mg/dL 0.6-1.25 8617650218) CALCIUM (test code = 8.1 mg/dL 8.6-10.6 L 3951470152) eGFR Calculation mL/min/1.73m2 (Non-) (test code = 3120372061) eGFR Calculation mL/min/1.73m2 () (test code = 6931174177) GILBERTO (test code = GILBERTO) Association of [...] tests). Lab Interpretation Abnormal (test code = 05543-6) [facility]2020-[facility]20 10:43:00 Test Item Value Reference Range Interpretation Comments MAGNESIUM (test code = 4572966463) 2.0 mg/dL 1.7-2.4 Lab Interpretation (test code = Normal 49821-3) [facility]2020-08[facility]20 10:43:00 Test Item Value Reference Range Interpretation Comments PHOSPHORUS (test code = 3403425370) 4.3 mg/dL 2.5-5 Lab Interpretation (test code = Normal 80146-5) [facility]BL[facility] [id number] 04:01:00 Test Item Value Reference Range Interpretation Comments Blood Culture-Aerobic No organisms No growth Previo us (test code = 72589-3) isolated prelim inary verified result was Culture [...] Culture-Anaerobic isolated preliminar y (test code = 72016-1) verifi ed result was Culture In Progress [...] CDT Lab Interpretation Normal (test code = 94497-9) [facility] [id number] 04:01:00 Test Item Value Reference Range Interpretation Comments Blood Culture-Aerobic No organisms No growth Previo us (test code = 00487-2) isolated prelim inary verified result was Culture In Progress on 04/07/2020 at 02 01 CDTPrevious preliminary verified result was No growth a t 24 hours on 04/07/2020 at 23 CDTPrevious preliminary verified result was No growth a t 48 hours on 04/08/2020 at 15 09 CDTPrevious preliminary verified result was No growth a t 72 hours on 04/09/2020 at 15 09 CDT Blood No organisms No growth Previous Culture-Anaerobic isolated preliminar y (test code = 51630-7) verifi ed result was Culture In Progress on 04/07/2020 at 02 CDTPrevious preliminary verified result was No growth a t 24 hours on 04/07/2020 at 23 CDTPrevious preliminary verified result was No growth a t 48 hours on 04/08/2020 at 23 CDTPrevious preliminary verified result was No growth a t 72 hours on 04/09/2020 at 23 CDT Lab Interpretation Normal (test code = 25655-7) [facility] (NA, K, CL, CO2, GLUCOSE, BUN, CREATININE, CA)2020-04-11 10:13:00 Test Item Value Reference Range Interpretation Comments NA (test code = 138 mmol/L 135-145 1453870652) K (test code = 3.9 mmol/L 3.5-5 9904880041) CL (test code = 106 mmol/L 98-108 7420272719) CO2 TOTAL (test code = 27 mmol/L 23-31 6955951346) AGAP (test code = 2-16 1756524292) BUN (test code = 24 mg/dL 7-23 H 5121356688) GLUCOSE (test code = 97 mg/dL 70-110 0393725099) CREATININE (test code = 0.63 mg/dL 0.6-1.25 1770515863) CALCIUM (test code = 8.1 mg/dL 8.6-10.6 L 0069201484) eGFR Calculation mL/min/1.73m2 (Non-) (test code = 7162315386) eGFR Calculation mL/min/1.73m2 () (test code = 2670052807) GILBERTO (test code = GILBERTO) Association of [...] tests). Lab Interpretation Abnormal (test code = 38248-1) [facility]2020-08-19 10:13:00 Test Item Value Reference Range Interpretation Comments MAGNESIUM (test code = 1915269332) 1.8 mg/dL 1.7-2.4 Lab Interpretation (test code = Normal 95875-8) [facility]2020-08-19 10:13:00 Test Item Value Reference Range Interpretation Comments PHOSPHORUS (test code = 5916391492) 3.6 mg/dL 2.5-5 Lab Interpretation (test code = Normal 74838-4) [facility] WITH [id number] 10:06:00 Test Item Value Reference Range Interpretation [...] RDW-SD (test code = 48.9 fL 38.5-51.6 83625-8) RDW-CV (test code = 15.3 % 12.1-15.4 788-0) PLT (test code = See_Comment [Automated 777-3) message] The sy stem which generated this result transmitted reference range : 150 - 328 10*3/ ?L. The reference r meredith was not used to interpret this result as normal/abnormal . MPV (test code = 11.7 fL 9.8-13 32520-1) NRBC/100 WBC (test See_Comment [Automat ed code = 8041646018) message] The system which generated this result transmitted reference range : 0.0 - 10.0 /100 WBCs. The refer ence range was not u sed to interpret th is result as normal/abnormal . NRBC x10^3 (test code <0.01 See_Comment [Auto mated = 5350628972) message] The s ystem which generated this result transmitted reference range : 10*3/?L. The reference range was not used to interpret this result as normal/abnormal . GRAN MAT (NEUT) % 75.6 % (test code = 770-8) IMM GRAN % (test code 1.10 % = 6818005056) LYMPH % (test code = 10.5 % 736-9) MONO % (test code = 11.0 % 5905-5) EOS % (test code = 1.5 % 713-8) BASO % (test code = 0.3 % 706-2) GRAN MAT x10^3(ANC) 5.56 10*3/uL 1.99-6.95 (test code = 0122865661) IMM GRAN x10^3 (test 0.08 10*3/uL 0-0.06 H code = 1131659320) LYMPH x10^3 (test code 0.77 10*3/uL 1.09-3.23 L = 731-0) MONO x10^3 (test code 0.81 10*3/uL 0.36-1.02 = 742-7) EOS x10^3 (test code = 0.11 10*3/uL 0.06-0.53 711-2) BASO x10^3 (test code <0.03 0.01-0.09 = 704-7) TOXIC CHANGES (test Present A code = 803-7) Lab Interpretation Abnormal (test code = 20929-6) [facility] [id number] 22:00:00 Test Item Value Reference Range Interpretation Comments Case Report (test code Surgical Pathology ? ? = [id number]) ?Case: [id number] ? Authorizing Provider: ?Person, MD Juventino ? Collected: ? 04/06/2020 1012 ?Ordering Location: ? ? [facility] OR ? Received: ?04/06/2020 1146 ? Department ? Pathologist: ? Xavi Douglasg, ? Specimen: ? ?SOFT TISSUE, OTHER, ileo rectal anastamosis ? Final Diagnosis (test e0sjlAYrYKVzn5frPWMjyJ code = 0866561332) FuZzEwMzNcZnRuYmpcdWMx WYxoeyHbLGlkr9AnP7WqKq AwMFxhbnNpXGRlZmxhbmcx IWIvHFZ3pmJrJXIxMGauEM QjMWptXm3ugXOwpPrcNhBj KDRqt8bdkiOZwopadGo9g3 lzUCHeOqK5zBScTDanE8cg rcCxaLYjBJDgEVz3rR49WI AymF6bnEGkMVswmdYuDiK1 GPfhPZGoXvG1UARcmTEeKY HqB2xkZFJkFTkpERQzBZfs jEDiRPW2rDujy4I4bDPypM HvfQqoCjEqTlQiNOZOj2Kx SOu4fYlkI8GjXMExEwX0wA QgUGFyYWdyYXBoIEZvbnQ7 dZ89BCbbxzD5dNZrd4Jzr7 8tl911dY9wxRHdZJB0WEXz XATwnUBpZHVbBPJ8GSKqhV MmH1fvXInxXE4zftkmACW6 MFxtYXJndDcyMFxtYXJnYj RzpWSsGLTzlAolDLovq239 GQD0FnGfEJ6oM3Aak1V4aP 9maXRcZGVmdGFiNzIwXGZv fw8qjFNlSOeld6FkSPZ1dy N3wYZyaBZzGSPsSA54Fsop s1DxRficSKP3NDKkuhOei0 Mzz6mrKlJlfcLaV3wvS4Vo ZHJoZWFkXHBnYnJkcmZvb3 Egw9PamULtjGc3z1upAOVs AGLonRfbg0yyKTI7ROMhJ3 X7hXDfq0ubNBrfVIHsrAA7 ocZmSBAjoWBtF2FllV4iKP myNO5enim7w8ztGnRpGG7h eyovr0kcECwcPXCwXNX9Do WhNYBqg8GiehleUiEja7Oo mZRoURdnP08yj980QLLihp CoO2bzuSZlwdzchAExiyfu LUftfwJ9KEIyWBOtIDvmPS YxXGZzMjBcbGFuZzEwMzNc aGljaFxmMVxkYmNoXGYxXG puJ7noDcHmXfTpEZsiTPYx NM3yP46NM34rNOrAWS1vTm PIKLBFQOJEIZRXF32HU6rY ARSAMYFwNWCZG80ZIuTCXA FEPBEYK1JYF443FEBwuoRo CFPgPA5cFtVFHCHWWSKMQH AEFFPOOOGTIOOBDUPeY1gZ SZLVBeYHX87DEePMEFuWVg pGDP4YSTgZDvdwELcQZOTC VAxCGzckG7ZXR7WMWGfXXR FORFxwYXIgICAgICAgICBQ BPEYPQ3YOFSST5imUALgPL ZiSLYcNNYIL9AAHAhXPfUV IKOJMP7GDGVPRMXSPLZSGO VccGFyXHBhclxwbGFpblxm MVxmczIyXGxhbmcxMDMzXG buT0lnRjPeCUHcdPdgHAgp o1RoFAJiMQPjRfztrzLiFR VdF6frhUarCBoyPXG2PL3g BU6DN3uAIMF4IaJ1YtHbHy SjSTM4LmZxJL6rvTqekH3o AlDlEkFaAGygNL5mCNShM1 ujhYWlSCQwTYRsW3pvItSg jR9ybMltHDgdqtKbVPZipH JrXOUqgq26BVO6WfCbp4V8 JEWnGzNmXKTmZA4kjExcBQ QgDJ5oXDYcI6iikC1awul8 AtBoXAEfErB1UEAqwsR5Cx r7ZPTjTFbbn5ykd4QbW1Dg oKHndTm2a3bcOAJwEbY7fF AnLFonX2wmegPmbONyGWYo UIo7xYzgRwItUUPqk7kyld BcZmNoYXJzZXQwIENhbGli zms8qN00IBWfiU4uzBWvBA mupnCjZnM3IFawCDJoRaS4 MBIhoPYaIGQnB4euBAXaWR rnUCKeZPkfnQRjNJE7nUdg q7P9cHAvhHTaqYvzZdOuHr JdNURMm0WmWUr7dOucB4Nw CGZlSdY7cJFfWFJpUKpkTY QeJNRqfsU3jY90SNirpdV2 kRCus4Nsm92cv860qY9hjL WqBLS4DUIrUXIarMHiUFIc NTQ2BIVmjNTpX5tqCLGyPE 1gnjiyTHmmYYwsKGZyeCD2 UZFyqWOgV2GvLKPkZUvcGQ Kgdww3FoAkKr2pzGAtnCbn MQtbc7hvd4ublGNrXcd6GZ VlKnKjNcssRXndt6Iow2li WCVkxl9aRKV6cGLvlGtgj1 O9lLJsGPTgiFGjwrIlZXDb VtS4QFztEE8qlc20HLGyDH U1po9vpJVtlChuyuXfaYVy HBitS1PaYMAma504XUMqQ8 CjLIPco7S4heNzHeSpUCTi oYS7zxR3MQCdTCm6xDAzpd R8lwZlxZUaV7snwK0rOMDa MF2qvnbds4ynBFmkPDbfKC DmrWW1olG7ZXQpxSEbS0Vb pV2uPHMfEWiwQDIbnrf7Nz QrEd7cwAGwxMsiPMydUabc YWdlXHBnbmNvbnRccGduZG VjXHBsYWluXHBsYWluXGYw DWCfPxEjkPnmhEqfkB7pKq PeVpEkDDtzQL7iAGNvW4fz oFHiXZYcUNJcG2qiHfAclI 9jaFxmMVxjZjJcZnMyMFxw YXIgSSBoYXZlIHBlcnNvbm DqsShiqjN3gCF2QRNhIMfq FOVaMTDuwWIjbz5vjKcrJD EhSX2bRCRfpyJhIUfhqVwl KButSRW9NTXvePCdaCMmcW FkZSBieSByZXNpZGVudHMs WMOsjCadr6Rel1KtnDR0bV 7bp5wyz9BsFIFjkQM7RB38 esP1dA0jMBEgKE1nJQNfBF 1sdOHdoMPjUZCvl27lnCdk cyByZXBvcnQuXHBsYWluXG YyXGZzMjhcbGFuZzEwMzNc aGljaFxmMlxkYmNoXGYyXG unS3wiBzSfQaDfRBxmBZQ2 fQ== Clinical Information Abdominal distention (test code = [R14.0] 8855328632) Gross Description (test r0zhwXUkYQOfqIKyWeSuJL code = 0092901988) ToVCRwc5cwTHOsiYSyYxGs MzNcZnRuYmpcdWMxXGRlZm Nqy8duf326mBWkg8dgJXJd VoU7kZMrNXLyaKSyM454SQ InKZwwp9zon6PiFXBnmRBm e7A0XOKXppaxwZj3oMkxZ1 8yj4S5BizwZ4dbFPRrNGlp HUBuKPqjmJFnDLA8WMRnFP E4IClhcmGdmpF1OEueaLSh FmY6KQj3k0hcoAwhCPQvWT P0l1vpYAhsaxDmHS1qvh0e iTp7i3vmwcNwMPAgOQRjpW WJCMEaK6XunXeoEu6rwRt7 pJahYyyhZAD2Xhx5UN1qdu 14qnt5zYewCWNmdevpJaR6 JTtnAVSsffocUNg3KQhrOX TwwORvGTVxpGWvG8NhTWem KJ1pggd7TbIuBF9djtqgGR kzOGHhXMA8ZkFiCSMot7Vi kesaIqDepp7qpj59TBV7e0 IfrYzgSRC9CZL7GuKhKi4p tYOjZEUxOZ4bByBayRAiLX Wzml73sTkfNHqlvzIfaC5p MgMgUYFvzPGrUWCkCM6kuV KiOBYqcQ8vxjxzVYSdRvPp syjzVCKpwWwlekUeVp2mhF atWLZ7WWjrY3wcqR0yHtR7 NJydU6kvgW3hOQk6ZLhfxC M3YRZqdH7xKO9ahqlaf2fq OJO5GIjgIIZlgeZ0jyNfEI ArfUOtS9DiyB96CcWdoXSn Y8OksQ4kLUodTCAvwjq5Nv ZaTy9xzLHsdVM4HMgbEpoe YWdlXHBnbmNvbnRccGduZG VjXHBsYWluXHBsYWluXGYw ALJnFaIpiZelhZvsiJ0kKu BcZnMyMFxwbGFpblxmMFxm czIwIFNwZWNpbWVuIEEgcm LjMDu2DJHcCrRld2xxuPDv YTeiQCK7tEGnXSBzELAdBV FtLT28M8XxbxIeHYijZSbn ezRjKnJdBYNlt79kxBJ7tM NezHXwGPfnGSMmHWXlY4Iy rWRxnvTovV8rx3EkkfMcQN 4eWFVcxqHnn3DgOL9jVBHz d4LzuFExnVNvKFSta9XxtU rhegIwOqAnlF0oVSTuuuHq v5gcuSXtTJ05NAQxPPgxIG enhvl6xDZppwNnkaCrG8hd PlOuom1pCRXsPCohmBQjck uuDSyafwZxWAP4OxYfHMsz QDNctKwkiS0tJfOvJeVnRH R3DhGoB80rCBlfkYC7WQPw WUPxweMkf7VftxLag4i6oZ LpgZWdKXCfU6KxaGTmkmBt lK3go0Albg8sKLRRdHSsx1 Dvd2WefHEaMBWiv6XuvKvd uxLrVF3qAJmhZS6qGTRrHH hviYKucy80CDVvVNHbyDze OUOkRRS6v05hl7yrKMYlnH EiFE7eUMJ1lKVougNkbYS6 iUUhVxOlMHbidDV1FVBkXW isDIJMhYUykRYwNs5aRAGi o90fnQDriI6gCUQqXQVnMq XdK53gHcJcqHC3bWShmRrx LPcftLMzJ6gwSHWpFKPgGg MkYmTjwXG2bPHuhkIutIDg SL8kkoqggb7jBSywRJC8nk skJ6ToJK4ioxhcppLiEVDq DY2yLT4gYWAmyiXanUyaMQ WfMALpmWDsSXdtFIuhG7ws OHKzmkO7PKPzoU8yZEDsuF BiDc0gVKHiv27gs6p5TMD8 rAPdrD7gpEhjDCGjFGN9n3 0st9zeOHU7MKYaRYDiaR6v JwEoRrErQKatEZFvIA6dAD DlLYGkzVAsd5DrwTXezI1y HJKdpcVtscAxEYLtwKZ9m1 QoRRXczXNie4IpBOU7vRNg JFPnnhFfGGHxBFJmEL9wtD BsIEMifCHiu4LxtTP4mUUn TUQbC4Obs61oQGAdWLVttH JieQX8HEMrZOHmAAXbqUpc zU1lLzPaYeVfJSe8HMDqSN WpDnu8JKCgDVopKSYgRIFd MjAgQTQuXHBhclxwYXIgU2 CevMvmahYxm4LaGyskXQZt SJV2YBAFXMI6GQgbc6XiG8 ujJPlclAHrQ9iaWJFdIREe PEFhowXtxSd9NEidILHmLH A9WVBMqUUhmJAlrDLqhAYi xTKrPVSgpL2rIQLypYVux4 LjeVR5mFOhZSPpenRLSjdu KPQcbeMqgwA4xW8aGFPrbQ IvxSRaYTQ2KyDuEY8vafAp iIOdLFEbTZA3hP7iOH1tRZ VeGRljZTRjh9FaBZHsTEFg WDQsubXfaRi2JKseRTUnmE SeGSIaoiCrdSpjyQ6oDjXw ZnMyMFxwbGFpblxmMVxmcz WkZNOpvXhlRZNbmRUrQR8J BTxLJYFyd8wrD3wopLCWf3 Iyo1VkaxVhGFVgXVrmFJFf XGZzMjBccGFyXHFsXHBsYW ipHFYeRNMhXqUmoKpqbC8m ZjBcZnMyMFxwYXJccGFyfQ == Embedded Images (test code = 5132820544) [facility] WITH [id number] 11:29:00 Test Item Value Reference Range Interpretation [...] RDW-SD (test code = 48.8 fL 38.5-51.6 32270-8) RDW-CV (test code = 15.2 % 12.1-15.4 788-0) PLT (test code = See_Comment L [Automated 777-3) message] The sy stem which generated this result transmitted reference range : 150 - 328 10*3/ ?L. The reference r meredith was not used to interpret this result as normal/abnormal . MPV (test code = 11.6 fL 9.8-13 82588-9) NRBC/100 WBC (test See_Comment [Automat ed code = 5304213952) message] The system which generated this result transmitted reference range : 0.0 - 10.0 /100 WBCs. The refer ence range was not u sed to interpret th is result as normal/abnormal . NRBC x10^3 (test code <0.01 See_Comment [Auto mated = 9550478790) message] The s ystem which generated this result transmitted reference range : 10*3/?L. The reference range was not used to interpret this result as normal/abnormal . GRAN MAT (NEUT) % 79.1 % (test code = 770-8) IMM GRAN % (test code 0.50 % = 9589807624) LYMPH % (test code = 11.0 % 736-9) MONO % (test code = 7.8 % 5905-5) EOS % (test code = 1.4 % 713-8) BASO % (test code = 0.2 % 706-2) GRAN MAT x10^3(ANC) 4.67 10*3/uL 1.99-6.95 (test code = 2841743655) IMM GRAN x10^3 (test 0.03 10*3/uL 0-0.06 code = 3642249295) LYMPH x10^3 (test code 0.65 10*3/uL 1.09-3.23 L = 731-0) MONO x10^3 (test code 0.46 10*3/uL 0.36-1.02 = 742-7) EOS x10^3 (test code = 0.08 10*3/uL 0.06-0.53 711-2) BASO x10^3 (test code <0.03 0.01-0.09 = 704-7) Lab Interpretation Abnormal (test code = 06012-9) [facility]00 Test Item Value Reference Range Interpretation Comments MAGNESIUM (test code = 7156969546) 1.7 mg/dL 1.7-2.4 Lab Interpretation (test code = Normal 59745-3) [facility] 11:19:00 Test Item Value Reference Range Interpretation Comments PHOSPHORUS (test code = 1003574195) 3.0 mg/dL 2.5-5 Lab Interpretation (test code = Normal 72587-2) [facility]XR CHEST 1 [id number] 13:59:01 Interval extubation and removal of enteric [...] reviewed this study and agree with theabove report.[facility]HEPAT[facility] FUNCTION PANEL (64421) (ALB,T.PRO,BILI T,BU/BC,ALT,AST,ALK PHOS) 2020-04-09 11:52:00 Test Item Value Reference Range Interpretation Comments TOTAL BILI (test code = 1848037562) 1.2 mg/dL 0.1-1.1 H BILI UNCON (test code = 0717270607) 0.8 mg/dL 0.1-1.1 BILI CONJ (test code = 9044817603) 0.0 mg/dL 0-0.3 T PROTEIN (test code = 0719990934) 4.2 g/dL 6.3-8.2 L ALBUMIN (test code = 7786371390) 2.2 g/dL 3.5-5 L ALK PHOS (test code = 8777563479) 36 U/L 34-122 ALTv (test code = 1742-6) 13 U/L 5-50 AST(SGOT) (test code = 0391884566) 23 U/L 13-40 Lab Interpretation (test code = Abnormal 33170-8) [facility] WITH [id number] 10:01:00 Test Item Value Reference Range Interpretation [...] RDW-SD (test code = 47.6 fL 38.5-51.6 08736-6) RDW-CV (test code = 14.8 % 12.1-15.4 788-0) PLT (test code = See_Comment L [Automated 777-3) message] The sy stem which generated this result transmitted reference range : 150 - 328 10*3/ ?L. The reference r meredith was not used to interpret this result as normal/abnormal . MPV (test code = 11.6 fL 9.8-13 11269-2) NRBC/100 WBC (test See_Comment [Automat ed code = 1472999904) message] The system which generated this result transmitted reference range : 0.0 - 10.0 /100 WBCs. The refer ence range was not u sed to interpret th is result as normal/abnormal . NRBC x10^3 (test code <0.01 See_Comment [Auto mated = 9505051770) message] The s ystem which generated this result transmitted reference range : 10*3/?L. The reference range was not used to interpret this result as normal/abnormal . GRAN MAT (NEUT) % 87.5 % (test code = 770-8) IMM GRAN % (test code 0.90 % = 9522086990) LYMPH % (test code = 7.5 % 736-9) MONO % (test code = 3.4 % 5905-5) EOS % (test code = 0.5 % 713-8) BASO % (test code = 0.2 % 706-2) GRAN MAT x10^3(ANC) 5.12 10*3/uL 1.99-6.95 (test code = 9114254930) IMM GRAN x10^3 (test 0.05 10*3/uL 0-0.06 code = 4513663192) LYMPH x10^3 (test code 0.44 10*3/uL 1.09-3.23 L = 731-0) MONO x10^3 (test code 0.20 10*3/uL 0.36-1.02 L = 742-7) EOS x10^3 (test code = 0.03 10*3/uL 0.06-0.53 L 711-2) BASO x10^3 (test code <0.03 0.01-0.09 = 704-7) DOHLE BODIES (test Present A code = 7792-5) TOXIC CHANGES (test Present A code = 803-7) Lab Interpretation Abnormal (test code = 37501-5) [facility] METABOLIC PANEL (NA, K, CL, CO2, GLUCOSE, BUN, CREATININE, CA)2020-04-09 09:37:00 Test Item Value Reference Range Interpretation Comments NA (test code = 135 mmol/L 135-145 0449377705) K (test code = 3.6 mmol/L 3.5-5 2415471525) CL (test code = 105 mmol/L 98-108 3624649548) CO2 TOTAL (test code = 31 mmol/L 23-31 0267268886) AGAP (test code = <1 2-16 L 8681015483) BUN (test code = 28 mg/dL 7-23 H 1087905007) GLUCOSE (test code = 95 mg/dL 70-110 3779805026) CREATININE (test code = 0.78 mg/dL 0.6-1.25 4827044510) CALCIUM (test code = 8.1 mg/dL 8.6-10.6 L 1622158479) eGFR Calculation mL/min/1.73m2 (Non-) (test code = 9156380668) eGFR Calculation mL/min/1.73m2 () (test code = 6244928896) GILBERTO (test code = GILBERTO) Association of [...] tests). Lab Interpretation Abnormal (test code = 26467-0) [facility]2020-08[facility]17 09:36:00 Test Item Value Reference Range Interpretation Comments MAGNESIUM (test code = 8592669538) 1.8 mg/dL 1.7-2.4 Lab Interpretation (test code = Normal 89394-0) [facility]2020-08[facility]17 09:36:00 Test Item Value Reference Range Interpretation Comments PHOSPHORUS (test code = 5630472933) 1.8 mg/dL 2.5-5 L Lab Interpretation (test code = Abnormal 72013-9) [facility] + LACTIC [id number] 21:18:00 Test Item Value Reference Range Interpretation Comments PH (test code = 2) 7.35-7.45 PCO2 (test code = See_Comment [Automate d 7869260083) message] The sy stem which generated this result transmitted reference range : 35 - 45 mmHg. The reference range was not used to interpret this result as normal/abnormal . PO2 (test code = See_Comment L [Automated 7302342905) message] The sy stem which generated this result transmitted reference range : 80 - 100 mmHg. The reference range was not used to interpret this result as normal/abnormal . HCO3 (test code = See_Comment [Automate d 5406855360) message] The sy stem which generated this result transmitted reference range : 22 - 26 mEq/L. The reference range was not used to interpret this result as normal/abnormal . BE (test code = See_Comment [Automated 2642525836) message] The sy stem which generated this result transmitted reference range : -3.0 - 3.0 mEq/ L. The reference r meredith was not used to interpret this result as normal/abnormal . THB (test code = 9.2 g/dL 13.5-18 L 5096760031) %O2HB (test code = 94.3 % 94-99 5310183727) %COHB ART (test code = 0.7 % 0-1.5 1221607640) %METHB ART (test code = 0.3 % 0.4-1.5 L 7251526065) VOL%O2 ART (test code = 12.3 % 15-23 L 7461826684) NA (test code = 135 mmol/L 135-145 6979855537) K+ (test code = 3.7 mmol/L 3.5-5 0090895779) AC CA IONZ (test code = 4.90 mg/dL 4.5-5.3 4418851217) GLUCOSE (test code = 94 mg/dL 70-110 7814733721) LACTIC ACID (test code 1.35 mmol/L = 9808100611) Lab Interpretation Abnormal (test code = 05064-2) [facility] 16:33:00 Test Item Value Reference Range Interpretation Comments POCT GLU (test code = 1079328185) 109 mg/dL 70-110 Lab Interpretation (test code = Normal 33810-4) [facility] GLUCOSE (AUTOMATED)2020-04-08 16:33:00 Test Item Value Reference Range Interpretation Comments POCT GLU (test code = 0018909076) 120 mg/dL 70-110 H Lab Interpretation (test code = Abnormal 31563-4) [facility] GLUCOSE (AUTOMATED)2020-04-08 16:33:00 Test Item Value Reference Range Interpretation Comments POCT GLU (test code = 8133240754) 93 mg/dL 70-110 Lab Interpretation (test code = Normal 94790-6) [facility] GLUCOSE (AUTOMATED)2020-04-08 12:46:00 Test Item Value Reference Range Interpretation Comments POCT GLU (test code = 5407274814) 109 mg/dL 70-110 Lab Interpretation (test code = Normal 24679-9) [facility] WITH [id number] 10:21:00 Test Item Value Reference Range Interpretation [...] RDW-SD (test code = 48.4 fL 38.5-51.6 58381-3) RDW-CV (test code = 15.0 % 12.1-15.4 788-0) PLT (test code = See_Comment L [Automated 777-3) message] The system which generated this result transmitted reference range : 150 - 328 10*3/?L. The reference range was not used to interpret this result as normal/abnormal . MPV (test code = 11.4 fL 9.8-13 56250-0) NRBC/100 WBC (test See_Comment [Automat ed code = 2469365100) message] The system which generated this result transmitted reference range : 0.0 - 10.0 /100 WBCs. The reference range was not used to interpret this result as normal/abnormal . NRBC x10^3 (test code <0.01 See_Comment [Auto mated = 1237365402) message] The system which generated this result transmitted reference range : 10*3/?L. The reference range was not used to interpret this result as normal/abnormal . GRAN MAT (NEUT) % 84.9 % (test code = 770-8) IMM GRAN % (test code 0.80 % = 1042869398) LYMPH % (test code = 7.9 % 736-9) MONO % (test code = 5.3 % 5905-5) EOS % (test code = 0.3 % 713-8) BASO % (test code = 0.8 % 706-2) GRAN MAT x10^3(ANC) 3.34 10*3/uL 1.99-6.95 (test code = 2454620274) IMM GRAN x10^3 (test 0.03 10*3/uL 0-0.06 code = 7367941052) LYMPH x10^3 (test 0.31 10*3/uL 1.09-3.23 L code = 731-0) MONO x10^3 (test code 0.21 10*3/uL 0.36-1.02 L = 742-7) EOS x10^3 (test code <0.03 0.06-0.53 L = 711-2) BASO x10^3 (test code 0.03 10*3/uL 0.01-0.09 = 704-7) GOLDEN CELLS (test code 2+ See_Comment A [Auto mated = 6690-9) message] The system which generated this result transmitted reference range : (none). The reference range was not used to interpret this result as normal/abnormal . BANDS (test code = MARKED INCREASED A 1968029360) DOHLE BODIES (test Present A code = 7792-5) TOXIC CHANGES (test Present A code = 803-7) Lab Interpretation Abnormal (test code = 73338-2) [facility] METABOLIC PANEL (NA, K, CL, CO2, GLUCOSE, BUN, CREATININE, CA)2020-04-08 10:02:00 Test Item Value Reference Range Interpretation Comments NA (test code = 138 mmol/L 135-145 9320804665) K (test code = 4.1 mmol/L 3.5-5 1509575314) CL (test code = 109 mmol/L 98-108 H 0403175576) CO2 TOTAL (test code = 25 mmol/L 23-31 8575377740) AGAP (test code = 2-16 6529070841) BUN (test code = 26 mg/dL 7-23 H 3996580124) GLUCOSE (test code = 103 mg/dL 70-110 9618382265) CREATININE (test code = 0.90 mg/dL 0.6-1.25 4404085378) CALCIUM (test code = 8.4 mg/dL 8.6-10.6 L 0613934246) eGFR Calculation mL/min/1.73m2 (Non-) (test code = 7233937683) eGFR Calculation mL/min/1.73m2 () (test code = 5012855169) GILBERTO (test code = GILBERTO) Association of [...] tests). Lab Interpretation Abnormal (test code = 17975-4) [facility]2020-[facility]16 10:02:00 Test Item Value Reference Range Interpretation Comments MAGNESIUM (test code = 1793470550) 2.6 mg/dL 1.7-2.4 H Lab Interpretation (test code = Abnormal 86591-4) [facility] + LACTIC [id number] 09:43:00 Test Item Value Reference Range Interpretation Comments PH (test code = 7.32-7.42 3097644429) PCO2 PANKAJ (test code = See_Comment [Auto mated 6376727434) message] The sy stem which generated this result transmitted reference range : 41 - 51 mmHg. The reference range was not used to interpret this result as normal/abnormal . PO2 PANKAJ (test code = See_Comment [Autom ated 7971139056) message] The sy stem which generated this result transmitted reference range : 25 - 40 mmHg. The reference range was not used to interpret this result as normal/abnormal . HCO3 PANKAJ (test code = See_Comment [Auto mated 2965645577) message] The sy stem which generated this result transmitted reference range : 24 - 28 mEq/L. The reference range was not used to interpret this result as normal/abnormal . AC VBE(BEAKER) (test mEq/L code = 1042222702) THB PANKAJ (test code = 11.4 g/dL 13.5-18 L 2607883421) %O2HB PANKAJ (test code = 64.9 % 52-63 H 2589227276) %COHB PANKAJ (test code = 1.0 % 0-1.5 3424634866) %METHB PANKAJ (test code = 0.3 % 0.4-1.5 L 2937946521) VOL%O2 PANKAJ (test code = 10.4 % 6-12 4154933015) NA (test code = 138 mmol/L 135-145 4148263669) K+ (test code = 4.1 mmol/L 3.5-5 0038852873) AC CA IONZ (test code = 4.90 mg/dL 4.5-5.3 6308619279) GLUCOSE (test code = 98 mg/dL 70-110 2812391507) LACTIC ACID (test code 1.90 mmol/L = 6105453343) Lab Interpretation Abnormal (test code = 68607-7) [facility]2020-04-08 04:25:00 Test Item Value Reference Range Interpretation Comments POCT GLU (test code = 6729130836) 106 mg/dL 70-110 Lab Interpretation (test code = Normal 82215-0) [facility]ST 1 [id number] 22:55:21Impression: Stable findings with no new changes.Exam: [...] lefthemidiaphragm. Bones and upper abdomen are unchanged. [facility], Radiant Results Inft User - 04/07/2020 5:56 [...] unchanged.IMPRESSIONIm pression: Stable findings with no new changes.[facility] MRSA / MSSA Screen by PCR, [id number] 19:28:00 Test Item Value Reference Range Interpretation Comments MSSA Screen by PCREstefanía (test code Negative Negative = 49548-2) MRSA/MSSA Positive? (test code = No No 9414440884) Lab Interpretation (test code = Normal 43712-7) [facility]2020-04-07 17:01:00 Test Item Value Reference Range Interpretation Comments POCT GLU (test code = 6675567378) 95 mg/dL 70-110 Lab Interpretation (test code = Normal 43862-9) [facility] + LACTIC [id number] 14:15:00 Test Item Value Reference Range Interpretation Comments PH (test code = 2) 7.35-7.45 L PCO2 (test code = See_Comment [Automate d 8351028992) message] The sy stem which generated this result transmitted reference range : 35 - 45 mmHg. The reference range was not used to interpret this result as normal/abnormal . PO2 (test code = See_Comment H [Automated 1142998920) message] The sy stem which generated this result transmitted reference range : 80 - 100 mmHg. The reference range was not used to interpret this result as normal/abnormal . HCO3 (test code = See_Comment L [Automate d 9538465581) message] The sy stem which generated this result transmitted reference range : 22 - 26 mEq/L. The reference range was not used to interpret this result as normal/abnormal . BE (test code = See_Comment L [Automated 5170653600) message] The sy stem which generated this result transmitted reference range : -3.0 - 3.0 mEq/ L. The reference r meredith was not used to interpret this result as normal/abnormal . THB (test code = 9.6 g/dL 13.5-18 L 5292893788) %O2HB (test code = 98.6 % 94-99 3522388305) %COHB ART (test code = 0.3 % 0-1.5 3248105565) %METHB ART (test code = 0.0 % 0.4-1.5 L 9160788073) VOL%O2 ART (test code = NA 0358549791) NA (test code = 131 mmol/L 135-145 L 4102649278) K+ (test code = 4.3 mmol/L 3.5-5 3845929918) AC CA IONZ (test code = 4.60 mg/dL 4.5-5.3 3558832173) GLUCOSE (test code = 147 mg/dL 70-110 H 2763221742) LACTIC ACID (test code 3.12 mmol/L 0.5-2.2 H = 9180743985) Lab Interpretation Abnormal (test code = 25297-8) [facility] CampusLagaic Acid Whole [id number] 14:00:00 Test Item Value Reference Range Interpretation Comments LACTIC ACID (test code = 3.12 mmol/L 4450201302) [facility] GLUCOSE (AUTOMATED)2020-04-07 12:53:00 Test Item Value Reference Range Interpretation Comments POCT GLU (test code = 1575869403) 140 mg/dL 70-110 H Lab Interpretation (test code = Abnormal 27690-6) [facility] + LACTIC [id number] 12:01:00 Test Item Value Reference Range Interpretation Comments PH (test code = 2) 7.35-7.45 L PCO2 (test code = See_Comment L [Automate d 2930416874) message] The sy stem which generated this result transmitted reference range : 35 - 45 mmHg. The reference range was not used to interpret this result as normal/abnormal . PO2 (test code = See_Comment H [Automated 3611062917) message] The sy stem which generated this result transmitted reference range : 80 - 100 mmHg. The reference range was not used to interpret this result as normal/abnormal . HCO3 (test code = See_Comment L [Automate d 7623276683) message] The sy stem which generated this result transmitted reference range : 22 - 26 mEq/L. The reference range was not used to interpret this result as normal/abnormal . BE (test code = See_Comment L [Automated 4045845517) message] The sy stem which generated this result transmitted reference range : -3.0 - 3.0 mEq/ L. The reference r meredith was not used to interpret this result as normal/abnormal . THB (test code = 10.8 g/dL 13.5-18 L 4066763524) %O2HB (test code = 98.8 % 94-99 5998807931) %COHB ART (test code = 0.3 % 0-1.5 7891013075) %METHB ART (test code = 0.0 % 0.4-1.5 L 6206861293) VOL%O2 ART (test code = 15.4 % 15-23 7016177480) NA (test code = 126 mmol/L 135-145 L 7106850704) K+ (test code = 4.3 mmol/L 3.5-5 9050293824) AC CA IONZ (test code = 4.70 mg/dL 4.5-5.3 4985951797) GLUCOSE (test code = 144 mg/dL 70-110 H 3020129651) LACTIC ACID (test code 2.79 mmol/L = 9922228202) Lab Interpretation Abnormal (test code = 03198-4) [facility] CampusURINE [id number] 11:44:00 Test Item Value Reference Range Interpretation Comments URINE CULTURE (test No aerobic growth (< code = 630-4) 1000 CFU/mL) [facility] WITH [id number] 09:53:00 Test Item Value Reference Range Interpretation [...] RDW-SD (test code = 48.8 fL 38.5-51.6 73304-7) RDW-CV (test code = 15.0 % 12.1-15.4 788-0) PLT (test code = See_Comment L [Automated 777-3) message] The sy stem which generated this result transmitted reference range : 150 - 328 10*3/ ?L. The reference r meredith was not used to interpret this result as normal/abnormal . MPV (test code = 11.8 fL 9.8-13 26966-0) IPF % (test code = 6.5 % 1.2-10.7 Platelet count 7173245021) measured by fluorescence method. NRBC/100 WBC (test See_Comment [Automat ed code = 5960094509) message] The system which generated this result transmitted reference range : 0.0 - 10.0 /100 WBCs. The refer ence range was not u sed to interpret th is result as normal/abnormal . NRBC x10^3 (test code <0.01 See_Comment [Auto mated = 7209781184) message] The s ystem which generated this result transmitted reference range : 10*3/?L. The reference range was not used to interpret this result as normal/abnormal . SEG % (test code = 20 % 33-76 L 84671-5) BAND % (test code = 45 % 0-1 H 96809-5) META % (test code = 9 % See_Comment H [Automa dain 22676-5) message] The sy stem which generated this result transmitted reference range : <=0. The refere nce range was not u sed to interpret th is result as normal/abnormal . MYELO % (test code = 1 % See_Comment H [Autom ated 99205-8) message] The sy stem which generated this result transmitted reference range : <=0. The refere nce range was not u sed to interpret th is result as normal/abnormal . LYMPH % (test code = 20 % 14-54 63105-3) MONO % (test code = 5 % 0-4 H 99208-8) ANC (test code = 1.40 10*3/uL 1.99-6.95 L 2266508173) GOLDEN CELLS (test code 2+ See_Comment A [Auto mated = 7790-9) message] The LOOKK stem which generated this result transmitted reference range : (none). The reference range was not used to interpret this result as normal/abnormal . SCHISTOCYTES (test 1+ A code = 800-3) DOHLE BODIES (test Present A code = 7792-5) TOXIC CHANGES (test Present A code = 803-7) Lab Interpretation Abnormal (test code = 74243-1) [facility] METABOLIC PANEL (NA, K, CL, CO2, GLUCOSE, BUN, CREATININE, CA)2020-04-07 09:21:00 Test Item Value Reference Range Interpretation Comments NA (test code = 137 mmol/L 135-145 9161374891) K (test code = 4.6 mmol/L 3.5-5 6159222312) CL (test code = 110 mmol/L 98-108 H 4762543230) CO2 TOTAL (test code = 17 mmol/L 23-31 L 4468028578) AGAP (test code = 2-16 9203345838) BUN (test code = 24 mg/dL 7-23 H 6408668811) GLUCOSE (test code = 132 mg/dL 70-110 H 2440980634) CREATININE (test code = 1.23 mg/dL 0.6-1.25 1246666986) CALCIUM (test code = 8.0 mg/dL 8.6-10.6 L 7319507843) eGFR Calculation mL/min/1.73m2 (Non-) (test code = 0848727643) eGFR Calculation mL/min/1.73m2 () (test code = 2676919896) GILBERTO (test code = GILBERTO) Association of [...] tests). Lab Interpretation Abnormal (test code = 98154-8) [facility]2020-[facility]-15 09:19:00 Test Item Value Reference Range Interpretation Comments MAGNESIUM (test code = 1761128064) 2.9 mg/dL 1.7-2.4 H Lab Interpretation (test code = Abnormal 73297-3) [facility]2020-04-07 04:37:00 Test Item Value Reference Range Interpretation Comments POCT GLU (test code = 8880875336) 111 mg/dL 70-110 H Lab Interpretation (test code = Abnormal 46485-5) [facility] CampusHCV [id number] 02:35:00 Test Item Value Reference Range Interpretation Comments HCV Ab (test code = 02984-3) Negative HCV Semi-Quantitative (test code = 21758-8) [facility] + LACTIC [id number] 02:15:00 Test Item Value Reference Range Interpretation Comments PH (test code = 7.32-7.42 L 0894431728) PCO2 PANKAJ (test code = See_Comment L [Auto mated 7645317881) message] The sy stem which generated this result transmitted reference range : 41 - 51 mmHg. The reference range was not used to interpret this result as normal/abnormal . PO2 PANKAJ (test code = See_Comment HH [Autom ated 2595524174) message] The sy stem which generated this result transmitted reference range : 25 - 40 mmHg. The reference range was not used to interpret this result as normal/abnormal . HCO3 PANKAJ (test code = See_Comment L [Auto mated 7359543120) message] The sy stem which generated this result transmitted reference range : 24 - 28 mEq/L. The reference range was not used to interpret this result as normal/abnormal . AC VBE(BEAKER) (test mEq/L code = 6100402789) THB PANKAJ (test code = 11.2 g/dL 13.5-18 L 6508471277) %O2HB PANKAJ (test code = 98.7 % 52-63 H 3820334142) %COHB PANKAJ (test code = 0.3 % 0-1.5 9185027974) %METHB PANKAJ (test code = 0.1 % 0.4-1.5 L 1411947116) VOL%O2 PANKAJ (test code = 15.9 % 6-12 H 7834887343) NA (test code = 136 mmol/L 135-145 2337917075) K+ (test code = 4.2 mmol/L 3.5-5 3849191665) AC CA IONZ (test code = 4.60 mg/dL 4.5-5.3 0004366636) GLUCOSE (test code = 108 mg/dL 70-110 6949120952) LACTIC ACID (test code 2.37 mmol/L = 9078861076) Lab Interpretation Abnormal (test code = 09446-5) [facility]ABG+COOX+NA+K+GLU+CA2+2020-04-07 01:54:00 Test Item Value Reference Range Interpretation Comments PH (test code = 2) 7.35-7.45 LL PCO2 (test code = See_Comment [Automate d message] 4599207174) The system [employer] generated this result transmit dain reference range : 35 - 45 mmHg. The reference range was not used to interpret this result as normal/abnormal . PO2 (test code = See_Comment H [Automated message] 4200999519) The system [employer] generated this result transmit dain reference range : 80 - 100 mmHg. The reference range was not used to interpret this result as normal/abnormal . HCO3 (test code = See_Comment L [Automate d message] 6140641830) The system [employer] generated this result transmit dain reference range : 22 - 26 mEq/L. The reference range was not used to interpret this result as normal/abnormal . BE (test code = See_Comment L [Automated message] 6903206912) The system [employer] generated this result transmit dain reference range : -3.0 - 3.0 mEq/ L. The reference r meredith was not used to interpret this result as normal/abnormal . THB (test code = 10.6 g/dL 13.5-18 L 1824161968) %O2HB (test code = 99.0 % 94-99 2896211479) %COHB ART (test code = 0.3 % 0-1.5 4751723317) %METHB ART (test code = 0.3 % 0.4-1.5 L 7396268161) VOL%O2 ART (test code = 15.3 % 15-23 4397215493) NA (test code = 136 mmol/L 135-145 9176409303) K+ (test code = 3.1 mmol/L 3.5-5 L 6378194308) AC CA IONZ (test code = 4.30 mg/dL 4.5-5.3 L 5939351485) GLUCOSE (test code = 113 mg/dL 70-110 H 0969192033) Lab Interpretation Abnormal (test code = 39785-7) [facility]ABG+COOX+NA+K+GLU+CA2+2020-04-07 01:53:00 Test Item Value Reference Range Interpretation Comments PH (test code = 2) 7.35-7.45 PCO2 (test code = See_Comment L [Automate d message] 3154791780) The system [employer] generated this result transmit dain reference range : 35 - 45 mmHg. The reference range was not used to interpret this result as normal/abnormal . PO2 (test code = See_Comment H [Automated message] 9251860045) The system [employer] generated this result transmit dain reference range : 80 - 100 mmHg. The reference range was not used to interpret this result as normal/abnormal . HCO3 (test code = See_Comment L [Automate d message] 1891429542) The system [employer] generated this result transmit dain reference range : 22 - 26 mEq/L. The reference range was not used to interpret this result as normal/abnormal . BE (test code = See_Comment L [Automated message] 3931675752) The system whic h generated this result transmit dain reference range : -3.0 - 3.0 mEq/ L. The reference r meredith was not used to interpret this result as normal/abnormal . THB (test code = 13.1 g/dL 13.5-18 L 6317563520) %O2HB (test code = 98.9 % 94-99 0890416182) %COHB ART (test code = 0.1 % 0-1.5 4903511777) %METHB ART (test code = 0.6 % 0.4-1.5 9600041376) VOL%O2 ART (test code = 19.3 % 15-23 8849728571) NA (test code = 132 mmol/L 135-145 L 2673929309) K+ (test code = 4.2 mmol/L 3.5-5 6191106862) AC CA IONZ (test code = 4.60 mg/dL 4.5-5.3 6305047885) GLUCOSE (test code = 99 mg/dL 70-110 8590054172) Lab Interpretation Abnormal (test code = 88684-8) [facility]HIV [facility]/2 AG-AB WITH [id number] 01:29:00 Test Item Value Reference Range Interpretation Comments HIV Negative Negative Semi-quantitative (test code = 86722-8) GILBERTO (test code = Non-reactive for HIV-1 GILBERTO) antigen and HIV-1/HIV-2 antibodies. ?No laboratory evidence of HIV infection. ?Repeat in 2-4 weeks if acute HIV infection is suspected. [facility] GLUCOSE (AUTOMATED)2020-04-07 00:40:00 Test Item Value Reference Range Interpretation Comments POCT GLU (test code = 2116343483) 100 mg/dL 70-110 Lab Interpretation (test code = Normal 92598-7) [facility] GLUCOSE (AUTOMATED)2020-04-07 00:06:00 Test Item Value Reference Range Interpretation Comments POCT GLU (test code = 9412078062) 116 mg/dL 70-110 H Lab Interpretation (test code = Abnormal 79637-5) [facility] GLUCOSE (AUTOMATED)2020-04-06 22:48:00 Test Item Value Reference Range Interpretation Comments POCT GLU (test code = 4864766357) 94 mg/dL 70-110 Lab Interpretation (test code = Normal 93280-9) [facility]XR CHEST 1 [id number] 21:06:45 1. Interval placement of right internal [...] reviewed this study and agree with the abovereport.[facility] WITH [id number] 20:15:00 Test Item Value Reference Range Interpretation [...] RDW-SD (test code = 49.2 fL 38.5-51.6 90812-6) RDW-CV (test code = 14.7 % 12.1-15.4 788-0) PLT (test code = See_Comment L [Automated 777-3) message] The sy stem which generated this result transmitted reference range : 150 - 328 10*3/ ?L. The reference r meredith was not used to interpret this result as normal/abnormal . MPV (test code = 12.1 fL 9.8-13 27599-7) NRBC/100 WBC (test See_Comment [Automat ed code = 3571404411) message] The system which generated this result transmitted reference range : 0.0 - 10.0 /100 WBCs. The refer ence range was not u sed to interpret th is result as normal/abnormal . NRBC x10^3 (test code <0.01 See_Comment [Auto mated = 6136358072) message] The s ystem which generated this result transmitted reference range : 10*3/?L. The reference range was not used to interpret this result as normal/abnormal . SEG % (test code = 38 % 33-76 90905-3) BAND % (test code = 28 % 0-1 H 93273-7) META % (test code = 4 % See_Comment H [Automa dain 64253-8) message] The sy stem which generated this result transmitted reference range : <=0. The refere nce range was not u sed to interpret th is result as normal/abnormal . MYELO % (test code = 6 % See_Comment H [Autom ated 24384-8) message] The sy stem which generated this result transmitted reference range : <=0. The refere nce range was not u sed to interpret th is result as normal/abnormal . LYMPH % (test code = 16 % 14-54 30513-7) MONO % (test code = 8 % 0-4 H 70570-7) ANC (test code = 0.40 10*3/uL 1.99-6.95 L 0481027954) GOLDEN CELLS (test code 3+ See_Comment A [Auto mated = 7890-9) message] The sy stem which generated this result transmitted reference range : (none). The reference range was not used to interpret this result as normal/abnormal . DOHLE BODIES (test Present A code = 7792-5) Lab Interpretation Abnormal (test code = 61180-5) [facility] CampusaPTT2020-08-14 19:55:00 Test Item Value Reference Range Interpretation Comments APTT Patient (test code See_Comment H [Au tomated message] = 3173-2) The system [employer] h generated this result transmitted ref erence range: 26 - 36 Seconds. The reference range was not used to int erpret this result as normal/abnormal . Lab Interpretation (test Abnormal code = 14802-0) [facility] CampusPROTHROMBIN TIME / [id number] 19:55:00 Test Item Value Reference Range Interpretation Comments PROTIME PATIENT (test See_Comment H [Auto mated message] code = 5964-2) The system [employer] generated this result transmitted ref erence range: 10.1 - 1 2.6 Seconds. The reference range was not used to int erpret this result as normal/abnormal . INR (test code = 6301-6) Nor mal INR <1.1; Warfarin Therap eutic range 2.0 to 3. 0 or 2.5 to 3.5, dep ending upon the indica tions. Lab Interpretation (test Abnormal code = 69664-1) [facility]. METABOLIC PANEL (53102)2020-04-06 19:50:00 Test Item Value Reference Range Interpretation Comments NA (test code = 137 mmol/L 135-145 9053012574) K (test code = 3.6 mmol/L 3.5-5 1622029432) CL (test code = 109 mmol/L 98-108 H 3099767563) CO2 TOTAL (test code = 18 mmol/L 23-31 L 5790767476) AGAP (test code = 2-16 8389934746) BUN (test code = 27 mg/dL 7-23 H 9292676178) GLUCOSE (test code = 91 mg/dL 70-110 5063933593) CREATININE (test code = 1.38 mg/dL 0.6-1.25 H 7983770949) TOTAL BILI (test code = 1.0 mg/dL 0.1-1.8 8701936355) CALCIUM (test code = 8.0 mg/dL 8.6-10.6 L 1219609543) T PROTEIN (test code = 4.3 g/dL 6.3-8.2 L 4825657128) ALBUMIN (test code = 2.7 g/dL 3.5-5 L 5937417128) ALK PHOS (test code = <20 34-122 L 7546377424) ALTv (test code = 9 U/L 5-50 1742-6) AST(SGOT) (test code = 21 U/L 13-40 3375997316) eGFR Calculation mL/min/1.73m2 (Non-) (test code = 8865320756) eGFR Calculation mL/min/1.73m2 () (test code = 6013711950) GILBERTO (test code = GILBERTO) Association of [...] tests). Lab Interpretation Abnormal (test code = 44411-2) [facility] (NA, K, CL, CO2, GLUCOSE, BUN, CREATININE, CA)2020-04-06 19:50:00 Test Item Value Reference Range Interpretation Comments NA (test code = 137 mmol/L 135-145 8320951981) K (test code = 3.6 mmol/L 3.5-5 1400765637) CL (test code = 109 mmol/L 98-108 H 1765417142) CO2 TOTAL (test code = 18 mmol/L 23-31 L 4030043000) AGAP (test code = 2-16 0498080894) BUN (test code = 27 mg/dL 7-23 H 2453416677) GLUCOSE (test code = 91 mg/dL 70-110 9414465714) CREATININE (test code = 1.38 mg/dL 0.6-1.25 H 8209876377) CALCIUM (test code = 8.0 mg/dL 8.6-10.6 L 4077947553) eGFR Calculation mL/min/1.73m2 (Non-) (test code = 3753442967) eGFR Calculation mL/min/1.73m2 () (test code = 2199109234) GILBERTO (test code = GILBERTO) Association of [...] tests). Lab Interpretation Abnormal (test code = 67336-8) [facility]2020-08-14 19:44:00 Test Item Value Reference Range Interpretation Comments MAGNESIUM (test code = 0558066350) 1.7 mg/dL 1.7-2.4 Lab Interpretation (test code = Normal 68209-3) [facility] + LACTIC [id number] 19:25:00 Test Item Value Reference Range Interpretation Comments PH (test code = 7.32-7.42 L 6219592136) PCO2 PANKAJ (test code = See_Comment L [Auto mated 2636938828) message] The sy stem which generated this result transmitted reference range : 41 - 51 mmHg. The reference range was not used to interpret this result as normal/abnormal . PO2 PANKAJ (test code = See_Comment H [Autom ated 0595533155) message] The sy stem which generated this result transmitted reference range : 25 - 40 mmHg. The reference range was not used to interpret this result as normal/abnormal . HCO3 PANKAJ (test code = See_Comment L [Auto mated 2874040234) message] The sy stem which generated this result transmitted reference range : 24 - 28 mEq/L. The reference range was not used to interpret this result as normal/abnormal . AC VBE(BEAKER) (test mEq/L code = 2021360008) THB PANKAJ (test code = 10.1 g/dL 13.5-18 L 3416840736) %O2HB PANKAJ (test code = 84.0 % 52-63 H 5167306575) %COHB PANKAJ (test code = 0.6 % 0-1.5 1725442177) %METHB PANKAJ (test code = 0.3 % 0.4-1.5 L 3492243847) VOL%O2 PANKAJ (test code = 12.0 % 6-12 1929055300) NA (test code = 135 mmol/L 135-145 1355897811) K+ (test code = 3.5 mmol/L 3.5-5 6646639579) AC CA IONZ (test code = 4.50 mg/dL 4.5-5.3 0189849208) GLUCOSE (test code = 87 mg/dL 70-110 0643482171) LACTIC ACID (test code 3.34 mmol/L = 3848491208) Lab Interpretation Abnormal (test code = 38533-0) [facility] + LACTIC [id number] 19:19:00 Test Item Value Reference Range Interpretation Comments PH (test code = 2) 7.35-7.45 L PCO2 (test code = See_Comment L [Automate d 7263589019) message] The sy stem which generated this result transmitted reference range : 35 - 45 mmHg. The reference range was not used to interpret this result as normal/abnormal . PO2 (test code = See_Comment H [Automated 2788007039) message] The sy stem which generated this result transmitted reference range : 80 - 100 mmHg. The reference range was not used to interpret this result as normal/abnormal . HCO3 (test code = See_Comment L [Automate d 4955985678) message] The sy stem which generated this result transmitted reference range : 22 - 26 mEq/L. The reference range was not used to interpret this result as normal/abnormal . BE (test code = See_Comment L [Automated 8868329831) message] The sy stem which generated this result transmitted reference range : -3.0 - 3.0 mEq/ L. The reference r meredith was not used to interpret this result as normal/abnormal . THB (test code = 10.4 g/dL 13.5-18 L 4469806452) %O2HB (test code = 98.3 % 94-99 6168742098) %COHB ART (test code = 0.3 % 0-1.5 1991278996) %METHB ART (test code = 0.3 % 0.4-1.5 L 7404110347) VOL%O2 ART (test code = 14.8 % 15-23 L 8839597642) NA (test code = 135 mmol/L 135-145 8707754135) K+ (test code = 3.5 mmol/L 3.5-5 9030270481) AC CA IONZ (test code = 4.50 mg/dL 4.5-5.3 8527824285) GLUCOSE (test code = 96 mg/dL 70-110 8693272025) LACTIC ACID (test code 2.95 mmol/L = 2184925784) Lab Interpretation Abnormal (test code = 57966-7) [facility] [id number] 16:51:00 Test Item Value Reference Range Interpretation Comments Case Report (test code Surgical Pathology ? ? = 9407969222) ?Case: [id number] ? Authorizing Provider: ?Bia Pedro MD ?Collected: ? 04/03/2020 1513 ?Ordering Location: ? ? [facility] OR ? Received: ?04/03/2020 1657 ? Department ? Pathologist: ? Laverne, Nimisha, PHD ?Specimens: ? A) - COLON, total abdominal colectomy ? B) - COLON, donuts x2 ? Final Diagnosis (test j7qitGRjHFEgb9xaATUakH code = 8267665149) FuZzEwMzNcZnRuYmpcdWMx WQrwonFvZClpn4ZuZ3NfOq AwMFxhbnNpXGRlZmxhbmcx HCJdPCP3euFbAWNwEOvuYX CnTRddBb8vxGVnvFriLjRd OKIgf7ncikERawxnlEd6a4 sbEUTpGrK3mISeAZvbP6eu odJxuGBxMAKwEHq3oF33LP BlmO2kxKXsZNvxpxYxANfr kdYvvzKdJgm8SUGqF7woUU IyEHUwE8ObSO1tQDBxYxh3 JOK3MEO2lKwlf3I6lIIcnF IagDtgIpMfJjCpBGVDf9Od ZYj0kMxgN7NuOYYcWoC2eP QgUGFyYWdyYXBoIEZvbnQ7 aSpsW0DeGPBqBaE6iAVzCK WzBYrgNKTdVh0gqKa7qXgs QkdvJQL6Eji0YS1ydm63vw u2pIezKUAdpvioVjH8CPeb WQIezejdBXt0OZvhCHBinL NnMNUjkPNmQ5GuZHecPA9z hct2UhTcGP6yymjmAYjqJA IrPZT4CmYzDQXkb1Cishzq ZiOpzx4kcy14PEV7y1WdnG hfHJA3LHE2SjRvCq2hvUCr GJHhVH1nZtBkjGVgVJBikh 17pWwpYMdnolPbsY7uXoJe DXUqxEGjRIFwDQ2xuCAvNO EivF0tjfrbUOSoQfTghdyk HNFjkGjljxSjHr9bdTomRP M2IPaaX8tqmM5iDlI9HQzp T6levK7pQWo6RYmibPV4HB TidF7rKT5jaspvw4qwULX3 KYeaHGYknuA4jrKgDJFnwA DqR2JniH27VcPnrBJnR4Vh lR3mQSoaRRZnspt8YxZiJl 6hpLMafZQ5BTfjRczbLXcr XHBnbmNvbnRccGduZGVjXH BsYWluXHBsYWluXGYwXGZz PlHpyAivaEfikK1sNnJtPq MyMFxwbGFpblxmMVxmczIw SSKaeoEVHbWMM3lWDyifER 9ESRomTfPGPGBCNO3DZhcr KJCaMRDvSU0aXpRPZ3HROP XmZ25KZ7FJLWtWPmAGQMEB MAEHIl3TK94VRQUCRI4FPg TNCKjXAQWGX31QJBKCFLKJ GxHCKQKLFXOVB1nZZZbyVK HlBSZbRKTfW8NCPPXUC6LQ M24oRWHrptBrSVVaLASKTY mAZOOKLKCMGXLMV0OODI4U TP2VDLkJZUTzL9hBZHTHON UpI85HU12JMwFJZuSGYQgH WZCQODBRED1LJKwGCrPHLT uPWdnEARABU5XRXCRrwIPy ZOKlJSVsVY4EL8YGIFYNNE 9OXHBhciAgICAgLSBOTyBF IdiKCT5ZJKWFCpAJBQGLE1 JQEH7WP4NQO2wRIWboPHYx ELQxYB3fMS4HVKJHVvJTYI BTRVNTSUxFIFNFUlJBVEVE GHFZEC2ZSNGbnLAjKLKmZJ AtIFJFQUNUSVZFIExZTVBI AP8FLLUGUPKplnVeQGLrIY RDQKUAABWyKsBBSSKDWV1T BZ9APpkGJaDwyESoBMRmzt xwbGFpblxmMVxmczIyXGxh sxbuPHFdDHbuR1mrQpWbCV BwvLbzBCzxb0HtEWDyIERa HAqvitMzEKJwx1lpYBHoVc Z1gTHdMXFKWyLDZcWyMJ3s HY0hFQJzDJSgMCzvFmROYO xwbGFpblxmMVxmczIwXHBh faqyODG0t0ztlDPvDONjoV DwDwVaKTNjXWVfo5yhFWCn bGFuZzEwMzNcZnRuYmpcdW JvGLPhYtRuy9cpa009zYWo o0jkHZBwSkN6hXVfOKNhxV uzkhk1pKwhYkTbSERjq5nr cyBcZmNoYXJzZXQwIEFyaW VhS999MULqLGnii0zqx9Hb MYKvvKQbp2Z2LUQGEBfpMw WiZ911t7iue6mbunOlxSU0 FEXmJNZ4IHkapsXamtX3RY ypaDJxLcF6YNjkjjGlHLai xzTazrGkVvx2BCKwO959ZX O3qHyuj5icSFZ1CNCgBJAu KoarZt6nyPSkD553XXBpNC ASXPTabBd3HAXaluNvhfOc yDLZx442R447n8jmHXJepl GrgTbFauhuz3wfK304COJu cGVydzEyMjQwXHBhcGVyaD R2OBCzWM2gbxgbXVekURdd YKJgszM8GGAxsRHlC8ViZC UnHP7zrdlrRYE5WQlgESVk UZW9SnSbEAOjy3Podoo0Bn Tsdx6vyj89LVE1i9CkdUxp OTS3VFM5SmEfSg8fkKHgYC TuGK8aUlHzmYTqNEQuzx36 bCyzVKwlixIswL6rKnLpUP JcxBWqJWZtVU9jeQLsKWMl fH7fhgiqCYUjZoFqktufXN HzxPcmtqRiVj1lnIdbRMA0 XDwnN2fcmN4qYwZ3CGcuU8 bcdL9eCXq0XEqoaRZ6ANRq kO0xIY9lqbvgs2deLPfiVA ygSSLozfZ6yzT7YCOmvALw O5VeuC9xWULbVG4feozml6 gpAJD5JZvyOLQxTZX6EfAo CLBlp2Pzaco0VtSzs1GucI CcFRaoT75ui046TQIzrnCw R8mcaLLabfyjyPAqdouiBV ayfjA7QWLhRGAuQCxbIIYg XGZzMjBcbGFuZzEwMzNcaG ljaFxmMVxkYmNoXGYxXGxv D3itTzXjM7FdVXVnMwYtpE DlTOqwjXZ0FKXwAGJik09a gGz3LYHhrykgz1AlXSWwoI UlkPLlzK5dviVuk4ywBPUh PWLwDEXrK9BcCQA3yWBkQG KarXBsxTY6KE8sqeFyOE5e ZGUgYnkgcmVzaWRlbnRzLC MaKXjso4ueSO7yNTRsyJzj jR4ttDH1CPBoz0klrDToaT Fqq0vka0QjpfSuZZdfEQKx PTpvCURbYLRyCG4lKYBbbW MfjfNxz4O9ZjtawGEawqmi VrohulS3EUwggmffFEEsWP zdO1oiSrQdUFJxjOquVgqd y0ShBYJvEZFjZhsgzSQzsI 0= Clinical Information Large bowel (test code = obstruction [K56.609] 6422304187) Gross Description (test q0nhiMSvCLVbkQCaVaRpJZ code = 5643453873) IoFTMqe2bpPAQgvPTrRzXg MzNcZnRuYmpcdWMxXGRlZm Wrd9rzx164zJKbd5jzWCJz GhI1iZRsOETleXXkE465AI PjNFczl9ndr8GbCFIwaVIq v0D1HBJQvahahHq2oGnxI3 8uq7E8AocxC0geDWSxZZwc QCBuMLrrnOTaHWE5VWWfJT P8KJzakuDxodJ6IZmsuNLu PlW9EUq8v0ezrOlcEUYmJI F1q3ikEItypsEpGF9nax2r xEk5n4sfjrIfDWApAXOvhI SOJYWmR1NotGchYz9omRy3 sPtzClzmNFY9Aez2DF8ecv 56buh6xJarSLSrzhupYiZ3 BPrhISTnvdjhYKw4NRdbLH LjuLQiHXEslLQaT0DbHAub WM4mdal7HmLkSV1ekyyfRR jxXOFkEAV4KgCtZJQae9Ka upanNhGycx1vmt59LAI8w3 XekKgpWLL2IAC1LvKoYz7q zAUoBKJkTD5sElYpwBTcUL Apne76vPfiIMjrvnZteQ6y ZuWqNMGjuABmNAMwFQ9nvX PxKAAfmR2ufokrZQBuUaXo cyneGPGsdBoqgkKmSd1kiF fvHUS6WDudK9wenR5vNdS7 WQasF3lznY7pUYb1ALsbeN K1LYQuhH0kOX9dirljb0ey SXV0ZFfuQTQbykT8reMjTM UrhSSdJ8IuaE64UfFnbJDc V5CvpC6xIJgkBONjcuz2Yn AqGe2vjYMfeUR2ZMepYnas YWdlXHBnbmNvbnRccGduZG VjXHBsYWluXHBsYWluXGYw CDPdDrBfaQdzzHqqiB3gPd BcZnMyMFxwbGFpblxmMVxm czIwIFNwZWNpbWVuIEEgaX QedkSoXMf3YFYtNkYtr6wu aCQbHCodIWAyp4z8lLJ9pF OvgOF6rQPhlEvuUG1djNTs SFUTRE25lZCbbhDzL40hh4 3tXPWgfEVvFEVgNU0amR2x gXFkj6syF0BytEoiHUIafy KoX28uw2jzzDXjs0HrMLH9 k0XqiGSxv4meK3LtrFjui0 IkP8ueAN3sWKzoCsWxC22x rV6dpRLpG1HmOGzuJT8iIB OqZeEqG24ceE7bGIzuyBJ8 YVDtACyqpWkkPKP5SEAuHD XlhOBxpWhtLTfhzKhohR6w ENGnIQIcbRGcxbQuYT9okM bacFQ6AjTnT37lNFohuKZ4 TKGvRCH0pLKeNW8pIYzjx9 NzbHkgaWRlbnRpZmlhYmxl VWWdySDzGYg8IgLVgLKfr3 Vdn5NmEJsoZSDwmj5hBXCe AL4eJZDaz066sML3fNOqTW XuyTG4IWIymeDhr1Wqdj5u VGhlIHNwZWNpbWVuIGlzIG 3fCN7hUXOsuG6oItPnhYUl XH01wJ9by0ZoiWQenERwIo 9yZGVyLiBUaGVyZSBpcyBh WVFkprQ2aWGuytYvnTvplO S2CScqYPcaDRbrOMKfP4Jx KJMfn71dAMYpwgJ1xG91wl ZuyKRoRIS1CEYyUNKnsEOf OnYvY25oNuQtmQU8lQGxGV onfXWxVS2owvtcqhRqhmCs WCSgN41jFyIfePT2qDPyzU SaiEatUQlhkEIpG7avNjXI uz52wM8alIN1bjX7uLGtsW RjklxwtQCxjICjDW48vD9e WZGwv7YhK0stVOvxx9Zlyx M7gBKjYk87PVuonHOlMQqi dGVuZGVkIGZvciBhIGxlbm e9jFLnLvXtGZ8pGULzPeBB aYDviG3mdDldUFDyg6Htlp JxETRzOUlsi20taAixWF03 M76aYTOcgsTbt4EcdFd4ES AeEHG2PF3kTKuxD9FvvwIq YXIsIHdpdGggYXJlYXMgb2 VdV56mZxzia3MxasFzBABx HHRiRP7oXDWdliPzX3btMd Izjc6bHVVfLH6yAe34GRIp NM2bRQrpVTdhgUnif6QnpR blUYPwa0OhtvPmDKJkNEzq b33ogRGjaVizU2wzhcXgNO OgJXAzaGElUAD3MMyuBM6l cD8hTAFnu84tPG5yUKJzDs PopErnUPIsZTJrNG0iuX7n maaqaVRoh7ZcDW2kNTRwQA Qhp8ftgmWxrtH1FF7pnLhj ftOyekStuNsvOJHpt2YguY TeWJRfdH2lMEXmDFWtsaUr cw4fx3b8LTGnUOLvFK9mMF TwwDxiFAljAA0bYWGfnUOc eS0zmQrxcwS3oPMyNGMcnj BhbiBhZGRpdGlvbmFsIHdl eAlhmWMmpRVoMMS6xvjbQ0 FdACHfPLRmXFYhl3PpeHN5 ofG9dGCccCbva7EoT8GlFM l5hiA4hT2xJCCbNUBmFFpy RKFdhT1it1rlpGEcnIbyi5 LvT3BrEYMcjMXrJNshiDwm GI0hOMM0LGHwYSZbs8YfgZ IvzFSxMpXjosHnj3ElbrQn YXWoOULzaYGojaYcGV8dbN wsTdzdJN81PLBpKSomYMXm PL5xnDAyKMX6mKHcSNJyu3 AstJNkUILcYQFxf9TkwJcx IGxpbmUgYXQgdGhlIGJsaW 9kFKTpJRhzc0Tlmr06paWl XVFbuOQcfMUoE5ifQKUoQD iwm0TjSSNbc8J4ST8lDUfo IHJlbWFpbmluZyBtdWNvc2 Yjz2NodAloYYsePWElKVuu PCDuGeZ0y1EboVOyfNDqkI BhbmQgdGhlIHZpYWJpbGl0 lJNfFaD6qASjsiSbHUU0cQ 2uCU9cqtgyphWyXI7zr1Zs UrBvD8Onp7BpaLZhZKIvtv 1pbmVkLiBUaGUgcGVyaWNv rR2gdZMbMQFgrD1cNOS7lC VkeKOnvSUxuXBcjBQ4NPRs Xc2kYAYcfY2as8asqFMagN gfyNugnj2uXUMjABHmozpr qqnxDwBzeBDdFvCfPK56OZ AtRZqdDUraETT1HXX0CIQp fJZjy8gwesouGVXibJFng1 KevGU1gBNwVEHiH8Ggy45e HWOuIKPuvXNupDD4FQUatN 4gQTEtQTEwLlxwYXJccGFy MBZzP4Dij58yH87uSFbevQ KaPDMnVmDDco84cY0sbJVn ELKoR9Muh72khWRvS3voGB BlbiBmYWNlLCByZXByZXNl aoYceFz7FXwzFHOwPFR1LW Obe9WkeLFiHVRvY8Yqk79x lXVnS8fsCEKnqjGqRRTcMZ GsSQFyOFHcodCihCr7ALcm RWIfAOJ5BVgjSR3xRBVptZ AyqM6tsKzbdiK8eWWuVFN8 ueqeT9JxFPZjOXKcYVHjdS Ucr3DjsXB7aOWfJLZpziDY EPqfPyYjszBbEN24MQUvrm Lcn2VxmEdulnExn0LosIWr m2GjNRTiXED0BFcfPDDzm3 hpbWFsIHRvIHRoZSBkaXN0 XF4kLWZbQQGpKPseLJUzNP HnNSX4VZPpvBJdi2QqpFZ5 aBQeFOOjH9Pvm66iER1eDC 01L26mBULhbzIsy7YnfEXn le7mTEUxHGVmeZS4FW3sNJ AaJXXiNPppMOEaICy4JVLe ZPGhi8FjMWT6uhmvH1QhGJ NjYXIgZGlzdGFsIHRvIGRp n7IzcwWaZMGfnnJaBTXzQM DiHQDzeuQhoBb5TBytJJYx THa3YOKxbYOvz9UzkIG4vN BmJOFqA3Jqt37hEL4uEW04 M03hYRVmnmMzc1LcxUGlgV O8DXqjzZ0xiIdyTDEoi5Wo bmRlZCBhcmVhXHBhciBBOT aeRL3xv0elnYGroRlof8Jt G5UkIGHyxVPqBHWcBSHpYB BwqzSmvAn5ZMfiOXYsNCTc BmGDdk2cewTnOMV1bW0eOX 9mIGludGVzdGluZSBhdHRh B8beYPW4ggGur7NnjMJcGO VlbXWrX3TvIOoxlyZbmbIq CFYpaYSvm7DqjKP8kLTkKX ElkkKOANY7RGFwcH3nv4qy xYEroHxidWmsny1oVSNoHK sju8pdKWejQEBbtDTiMYHc pjRbpUmoaJ4gCpIzXsWgIC xwbGFpblxmMVxmczIwIFNw ZWNpbWVuIEIgaXMgcmVjZW l0ABMsEdXjr7gjuDCdYVxi JWY1uFHcEONtMAMxAAInFR 20H2HhphKoHHvkHYntvjUr WbAtSISma5yoobljLX4gwS QzMSlpNOuwCslpSZ9iBJCc ueQyn9BgJF9dVCWqDV4vh7 ZapM4aiZ1sXSZndeU6bqGy WU07SIfbGA90KRfyTT44XH NtIGFuZCAyLjUgeCAxLjkg uVXqKsmzB49sUuSWw6HuRD UikdG5rtNlriHpArinXEP7 KLSfNTVeNVPckQOstF0fro TnwzBzhQCmsKX9GUOyVI13 iBOvfGbtRB7cThDfKDOlfj UBYM3FBnpomMXxZ0UmONBk dyB6RQqmCALwGGJxTMOrPL BzbWFsbGVyIGRvdWdobnV0 IGluIEIzLiBccGFyXHBhci OOJWB8ENDawmSndHgfWPRY ZOBgFALqJ1X6BVUneDaaAL LcHMF9tsVzFXHnG9KgQEAP PGFAR3WtDJHmWPbhJZNgKU ZzMTZcbGFuZzEwMzNcaGlj aFxmMVxkYmNoXGYxXGxvY2 xnFrWeU5TlTAQeIZPjR90l iPxkfC1oNbCsWkQwAGdnKK RvaRpkqGcapZ0fQeCjMlSe MFxwbGFpblxmMVxmczIwXH Bhcn0= Embedded Images (test code = 5980925462) [facility]2020-[facility] 16:04:Ana Ahn MD ? ? 04/06/2020 11:06 AMIntubationUrgency: emergent Difficult airway General Information and Staff Patient location during procedure: ORAnesthesiologist: Cyntiha Herring, CARMENesident/OBSTETRICS/GYNECOLOGY NURSE: Dana Sampson DOPerformed: anesthesiologist and resident/OBSTETRICS/GYNECOLOGY NURSE Indications and Patient ConditionIndications for airway management: [...] from glidescope to advance tube into airway. [facility]Int[facility]2020-08-14 16:04:Ana Ahn MD ? ? 04/08/2020 ?5:11 AMIntubationUrgency: emergent Difficult airway General Information and Staff Patient location during procedure: ORAnesthesiologist: Cynthia Herring, Kathydent/OBSTETRICS/GYNECOLOGY NURSE: Dana Sampson DOPerformed: anesthesiologist and resident/OBSTETRICS/GYNECOLOGY NURSE Indications and Patient ConditionIndications for airway management: [...] glidescope to advance tube into airway. Additional UvhtuapsK9k on VL by CA1, multiple attempts by CA1 with ETT with stylet and bougie, unable to pass ETT through glottis. BVM between attempts. Glidescope stylet with ETT used by faculty under VL, attempt x 1 by faculty, g1v, atraumatic.[facility] CampusXR [id number] 15:42:20 Large volume pneumoperitoneum. Continued gaseous distention and dilatation of the stomach and smallbowelfollowing total colectomy with ileoanal anastomosis may representpostoperative ileus. Findings regarding pneumoperitoneum were already communicated to [facility]. Preliminary Report Dictated by Resident: Bart [...] small bowel and issimilar to prior radiographs. [place] project over the midline in the lowerabdomen.IMPRESSIONLarge volume pneumoperitoneum.Continued gaseous distention and dilatation of the stomach and small bowelfollowing total colectomy with ileoanal anastomosis may representpostoperative ileus.Findings regarding pneumoperitoneum were already communicated to [facility].Preliminary Report Dictated by Resident: Bart Klein reviewed this study and agree.Weston Damon MD., have reviewed this study andagree with theabove report. [facility] CampusType and Screen - ONCE [id number] 15:18:48 Test Item Value Reference Range Interpretation Comments ABO & RH (test code O POSITIVE Performe d at [facility] = 20) Laboratory Serv [facility] s [id number] Free: [phone] A No. [id number] IAT (test code = Negative Performed a t [facility] 1185) Laboratory Serv [facility] s [id number] Free: [phone] A No. [id number] [facility] CampusXR CHEST 1 [id number] 15:09:51 1. 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 FINDINGS: Lines/tubes: Enteric tube c ourses over the midline and inferiorly beyondthe diaphragm and fydvc-el-ncoo. Left diaphragm is elevated with interval development of large amount offree air noted under the diaphragms, better seen on concomitant abdominalx-ray. Lungs are clear without focal consolidation, pleural effusion orpneumothorax. The cardiomediastinal silhouette is stable. ?No acute osseousabnormalities. 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 Left diaphragm is elevated with interval development [...] have reviewed this study and agree with theabovereport.[facility] CampusCentral [id number] 14:52:37Ana Syed MD ? ? 04/06/2020 ?9:53 [...] tolerated procedure well with no complications ? [facility] [id number] 14:52:Ana Schulz MD ? ? 04/06/2020 ?9:53 [...] tolerated procedure well with no complications ? [facility] [id number] 14:51:44Ana Syed MD ? ? 04/06/2020 ?9:52 [...] complications and all wires accounted for _ [facility] CampusArterial [id number] 14:51:44Ana Syed MD ? ? 04/06/2020 ?9:52 [...] complications and all wires accounted for _ [facility] WITH [id number] 13:22:00 Test Item Value Reference Range Interpretation Comments WBC (test code = See_Comment LL [Automated 5390-2) message] The system which generated this result transmitted reference range : 4.20 - 10.70 10*3/?L. The reference range was not used to interpret this result as normal/abnormal . RBC (test code = See_Comment [Automated 909-8) message] The system which generated [...] RDW-SD (test code = 47.8 fL 38.5-51.6 09519-4) RDW-CV (test code = 14.6 % 12.1-15.4 788-0) PLT (test code = See_Comment [Automated 777-3) message] The system which generated this result transmitted reference range : 150 - 328 10*3/?L. The reference range was not used to interpret this result as normal/abnormal . MPV (test code = 12.1 fL 9.8-13 99640-6) NRBC/100 WBC (test See_Comment [Automat ed code = 5109735646) message] The system which generated this result transmitted reference range : 0.0 - 10.0 /100 WBCs. The reference range was not used to interpret this result as normal/abnormal . NRBC x10^3 (test code <0.01 See_Comment [Auto mated = 7326661482) message] The system which generated this result transmitted reference range : 10*3/?L. The reference range was not used to interpret this result as normal/abnormal . GRAN MAT (NEUT) % 71.6 % (test code = 770-8) IMM GRAN % (test code 0.90 % = 5899613368) LYMPH % (test code = 18.3 % 736-9) MONO % (test code = 9.2 % 5905-5) EOS % (test code = 0.0 % 713-8) BASO % (test code = 0.0 % 706-2) GRAN MAT x10^3(ANC) 0.78 10*3/uL 1.99-6.95 L (test code = 9041342819) IMM GRAN x10^3 (test <0.03 0-0.06 code = 9427686914) LYMPH x10^3 (test 0.20 10*3/uL 1.09-3.23 L code = 731-0) MONO x10^3 (test code 0.10 10*3/uL 0.36-1.02 L = 742-7) EOS x10^3 (test code <0.03 0.06-0.53 L = 711-2) BASO x10^3 (test code <0.03 0.01-0.09 = 704-7) GOLDEN CELLS (test code 2+ See_Comment A [Auto mated = 4798-9) message] The system which generated this result transmitted reference range : (none). The reference range was not used to interpret this result as normal/abnormal . BANDS (test code = MARKED INCREASED A 4004176779) Lab Interpretation Abnormal (test code = 05434-6) [facility] METABOLIC PANEL (NA, K, CL, CO2, GLUCOSE, BUN, CREATININE, CA)2020-04-06 12:38:00 Test Item Value Reference Range Interpretation Comments NA (test code = 134 mmol/L 135-145 L 7931478758) K (test code = 4.5 mmol/L 3.5-5 7934553489) CL (test code = 105 mmol/L 98-108 8188811456) CO2 TOTAL (test code = 18 mmol/L 23-31 L 3612471958) AGAP (test code = 2-16 5733308104) BUN (test code = 30 mg/dL 7-23 H 9172783519) GLUCOSE (test code = 117 mg/dL 70-110 H 2488038764) CREATININE (test code = 1.95 mg/dL 0.6-1.25 H 6439966751) CALCIUM (test code = 8.6 mg/dL 8.6-10.6 6395703337) eGFR Calculation mL/min/1.73m2 (Non-) (test code = 9952962072) eGFR Calculation mL/min/1.73m2 () (test code = 3278833179) GILBERTO (test code = GILBERTO) Association of [...] tests). Lab Interpretation Abnormal (test code = 14968-3) [facility] CampusMAGNESIUM2020-08-14 12:38:00 Test Item Value Reference Range Interpretation Comments MAGNESIUM (test code = 9685014663) 2.3 mg/dL 1.7-2.4 Lab Interpretation (test code = Normal 92222-5) [facility] CampusXR [id number] 23:28:32 Prominent gaseous distention of small bowel [...] pelvis. Note: Left hemidiaphragm isnot fully within jidon-mz-iglr. FINDINGS: Status post colectomy. Massive gaseous distention [...] and pelvis.Note: Left hemidiaphragm isnot fully within kqpxe-en-kbrs.FINDINGS:Status post colectomy.Massive gaseous distention of the stomach [...] [facility]XR [id number] 23:22:45 Esophogastric tube tip projects over the [...] Bilateralhemidiaphragms and upper abdomen are not within bhpxp-tc-gvwu. FINDINGS: The tipof the esophogastric tube projects [...] Bilateralhemidiaphragms and upper abdomen are not within cjivv-ua-isrp.FINDINGS:The tip of the esophogastric tube projects over [...] reviewed this study and agree with theabove report.[facility] CampusBASI METABOLIC PANEL (NA, K, CL, CO2, GLUCOSE, BUN, CREATININE, CA)2020-04-05 11:08:00 Test Item Value Reference Range Interpretation Comments NA (test code = 137 mmol/L 135-145 2705023697) K (test code = 4.4 mmol/L 3.5-5 7130265627) CL (test code = 104 mmol/L 98-108 7115844211) CO2 TOTAL (test code = 24 mmol/L 23-31 0267611402) AGAP (test code = 2-16 7780675860) BUN (test code = 10 mg/dL 7-23 6249081415) GLUCOSE (test code = 104 mg/dL 70-110 7574148598) CREATININE (test code 1.18 mg/dL 0.6-1.25 = 5593523734) CALCIUM (test code = 8.7 mg/dL 8.6-10.6 6911291675) eGFR Calculation mL/min/1.73m2 (Non-) (test code = 5719986495) eGFR Calculation mL/min/1.73m2 () (test code = 5793808805) GILBERTO (test code = GILBERTO) Association of [...] or urine or abnormalities in imaging tests). [facility] CampusMAG[facility]UM2020-08-13 11:08:00 Test Item Value Reference Range Interpretation Comments MAGNESIUM (test code = 5201499449) 2.3 mg/dL 1.7-2.4 Lab Interpretation (test code = Normal 20945-5) [facility] WITH [id number] 10:32:00 Test Item Value Reference Range Interpretation [...] RDW-SD (test code = 47.8 fL 38.5-51.6 94200-2) RDW-CV (test code = 14.6 % 12.1-15.4 788-0) PLT (test code = See_Comment [Automated 777-3) message] The sy stem which generated this result transmitted reference range : 150 - 328 10*3/ ?L. The reference r meredith was not used to interpret this result as normal/abnormal . MPV (test code = 11.6 fL 9.8-13 12574-6) NRBC/100 WBC (test See_Comment [Automat ed code = 0624105685) message] The system which generated this result transmitted reference range : 0.0 - 10.0 /100 WBCs. The refer ence range was not u sed to interpret th is result as normal/abnormal . NRBC x10^3 (test code <0.01 See_Comment [Auto mated = 9549276171) message] The s ystem which generated this result transmitted reference range : 10*3/?L. The reference range was not used to interpret this result as normal/abnormal . GRAN MAT (NEUT) % 82.4 % (test code = 770-8) IMM GRAN % (test code 0.30 % = 8965798573) LYMPH % (test code = 12.4 % 736-9) MONO % (test code = 4.5 % 5905-5) EOS % (test code = 0.2 % 713-8) BASO % (test code = 0.2 % 706-2) GRAN MAT x10^3(ANC) 5.12 10*3/uL 1.99-6.95 (test code = 4817558085) IMM GRAN x10^3 (test <0.03 0-0.06 code = 3270641583) LYMPH x10^3 (test code 0.77 10*3/uL 1.09-3.23 L = 731-0) MONO x10^3 (test code 0.28 10*3/uL 0.36-1.02 L = 742-7) EOS x10^3 (test code = <0.03 0.06-0.53 L 711-2) BASO x10^3 (test code <0.03 0.01-0.09 = 704-7) Lab Interpretation Abnormal (test code = 37393-6) [facility] METABOLIC PANEL (NA, K, CL, CO2, GLUCOSE, BUN, CREATININE, CA)2020-04-04 11:02:00 Test Item Value Reference Range Interpretation Comments NA (test code = 135 mmol/L 135-145 8521652231) K (test code = 4.4 mmol/L 3.5-5 Slight 1145726141) hemolysis CL (test code = 103 mmol/L 98-108 0718645325) CO2 TOTAL (test code 26 mmol/L 23-31 = 2286882054) AGAP (test code = 2-16 4414847594) BUN (test code = 7 mg/dL 7-23 Slight 2488413185) hemolysis GLUCOSE (test code = 119 mg/dL 70-110 H 9495267176) CREATININE (test code 0.95 mg/dL 0.6-1.25 = 6439462685) CALCIUM (test code = 8.3 mg/dL 8.6-10.6 L 8241613853) eGFR Calculation mL/min/1.73m2 (Non-) (test code = 8533772645) eGFR Calculation mL/min/1.73m2 () (test code = 2046627838) GILBERTO (test code = GILBERTO) Association of [...] tests). Lab Interpretation Abnormal (test code = 05646-8) [facility]2020-[facility] 11:02:00 Test Item Value Reference Range Interpretation Comments MAGNESIUM (test code = 3191223989) 1.7 mg/dL 1.7-2.4 Lab Interpretation (test code = Normal 92068-9) [facility] WITH [id number] 10:31:00 Test Item Value Reference Range Interpretation [...] RDW-SD (test code = 46.5 fL 38.5-51.6 63656-8) RDW-CV (test code = 14.3 % 12.1-15.4 788-0) PLT (test code = See_Comment L [Automated 777-3) message] The sy stem which generated this result transmitted reference range : 150 - 328 10*3/ ?L. The reference r meredith was not used to interpret this result as normal/abnormal . MPV (test code = 11.2 fL 9.8-13 20767-3) NRBC/100 WBC (test See_Comment [Automat ed code = 0436749342) message] The system which generated this result transmitted reference range : 0.0 - 10.0 /100 WBCs. The refer ence range was not u sed to interpret th is result as normal/abnormal . NRBC x10^3 (test code <0.01 See_Comment [Auto mated = 3216259262) message] The s ystem which generated this result transmitted reference range : 10*3/?L. The reference range was not used to interpret this result as normal/abnormal . GRAN MAT (NEUT) % 76.7 % (test code = 770-8) IMM GRAN % (test code 0.30 % = 2658476634) LYMPH % (test code = 16.4 % 736-9) MONO % (test code = 6.2 % 5905-5) EOS % (test code = 0.2 % 713-8) BASO % (test code = 0.2 % 706-2) GRAN MAT x10^3(ANC) 5.12 10*3/uL 1.99-6.95 (test code = 2224525769) IMM GRAN x10^3 (test <0.03 0-0.06 code = 9833246140) LYMPH x10^3 (test code 1.09 10*3/uL 1.09-3.23 = 731-0) MONO x10^3 (test code 0.41 10*3/uL 0.36-1.02 = 742-7) EOS x10^3 (test code = <0.03 0.06-0.53 L 711-2) BASO x10^3 (test code <0.03 0.01-0.09 = 704-7) Lab Interpretation Abnormal (test code = 16470-1) [facility] WITH [id number] 11:04:00 Test Item Value Reference Range Interpretation [...] RDW-SD (test code = 45.6 fL 38.5-51.6 72520-2) RDW-CV (test code = 14.0 % 12.1-15.4 788-0) PLT (test code = See_Comment L [Automated 777-3) message] The sy stem which generated this result transmitted reference range : 150 - 328 10*3/ ?L. The reference r meredith was not used to interpret this result as normal/abnormal . MPV (test code = 11.2 fL 9.8-13 07450-4) NRBC/100 WBC (test See_Comment [Automat ed code = 1273189432) message] The system which generated this result transmitted reference range : 0.0 - 10.0 /100 WBCs. The refer ence range was not u sed to interpret th is result as normal/abnormal . NRBC x10^3 (test code <0.01 See_Comment [Auto mated = 6046909342) message] The s ystem which generated this result transmitted reference range : 10*3/?L. The reference range was not used to interpret this result as normal/abnormal . GRAN MAT (NEUT) % 52.7 % (test code = 770-8) IMM GRAN % (test code 0.30 % = 7716050777) LYMPH % (test code = 34.6 % 736-9) MONO % (test code = 9.6 % 5905-5) EOS % (test code = 2.2 % 713-8) BASO % (test code = 0.6 % 706-2) GRAN MAT x10^3(ANC) 1.88 10*3/uL 1.99-6.95 L (test code = 3470468973) IMM GRAN x10^3 (test <0.03 0-0.06 code = 3725023743) LYMPH x10^3 (test code 1.23 10*3/uL 1.09-3.23 = 731-0) MONO x10^3 (test code 0.34 10*3/uL 0.36-1.02 L = 742-7) EOS x10^3 (test code = 0.08 10*3/uL 0.06-0.53 711-2) BASO x10^3 (test code <0.03 0.01-0.09 = 704-7) REACT LYMPHS (test Rare code = 9893382134) Lab Interpretation Abnormal (test code = 59627-9) [facility] METABOLIC PANEL (NA, K, CL, CO2, GLUCOSE, BUN, CREATININE, CA)2020-04-03 10:54:00 Test Item Value Reference Range Interpretation Comments NA (test code = 140 mmol/L 135-145 5658700823) K (test code = 3.9 mmol/L 3.5-5 1092284433) CL (test code = 107 mmol/L 98-108 4779724460) CO2 TOTAL (test code = 28 mmol/L 23-31 6944093348) AGAP (test code = 2-16 6264351337) BUN (test code = 4 mg/dL 7-23 L 6488441284) GLUCOSE (test code = 88 mg/dL 70-110 2996212660) CREATININE (test code = 0.96 mg/dL 0.6-1.25 1508938745) CALCIUM (test code = 8.6 mg/dL 8.6-10.6 4528950665) eGFR Calculation mL/min/1.73m2 (Non-) (test code = 0511229308) eGFR Calculation mL/min/1.73m2 () (test code = 5640186056) GILBERTO (test code = GILBERTO) Association of [...] tests). Lab Interpretation Abnormal (test code = 96109-5) [facility]2020-08-11 10:54:00 Test Item Value Reference Range Interpretation Comments MAGNESIUM (test code = 7239757900) 2.0 mg/dL 1.7-2.4 Lab Interpretation (test code = Normal 34681-6) [facility] CampusType and Screen - ONCE [id number] 23:40:25 Test Item Value Reference Range Interpretation Comments ABO & RH (test code O POSITIVE Performe d at [facility] = 20) Laboratory Serv [facility]3 [address] [facility] s [id number] Free: [phone] A No. [id number] IAT (test code = Negative Performed a t [facility] 1185) Laboratory [facility] s [address]Opwt Free: [phone] A No. [id number] [facility] CampusCBC WITH [id number] 11:21:00 Test Item Value Reference Range Interpretation [...] RDW-SD (test code = 45.8 fL 38.5-51.6 87666-0) RDW-CV (test code = 14.2 % 12.1-15.4 788-0) PLT (test code = See_Comment L [Automated 777-3) message] The sy stem which generated this result transmitted reference range : 150 - 328 10*3/ ?L. The reference r meredith was not used to interpret this result as normal/abnormal . MPV (test code = 10.6 fL 9.8-13 28802-4) NRBC/100 WBC (test See_Comment [Automat ed code = 8448388120) message] The system which generated this result transmitted reference range : 0.0 - 10.0 /100 WBCs. The refer ence range was not u sed to interpret th is result as normal/abnormal . NRBC x10^3 (test code <0.01 See_Comment [Auto mated = 8723025255) message] The s ystem which generated this result transmitted reference range : 10*3/?L. The reference range was not used to interpret this result as normal/abnormal . GRAN MAT (NEUT) % 46.4 % (test code = 770-8) IMM GRAN % (test code 0.30 % = 2827333264) LYMPH % (test code = 38.8 % 736-9) MONO % (test code = 10.5 % 5905-5) EOS % (test code = 3.3 % 713-8) BASO % (test code = 0.7 % 706-2) GRAN MAT x10^3(ANC) 1.41 10*3/uL 1.99-6.95 L (test code = 7197370268) IMM GRAN x10^3 (test <0.03 0-0.06 code = 5317540109) LYMPH x10^3 (test code 1.18 10*3/uL 1.09-3.23 = 731-0) MONO x10^3 (test code 0.32 10*3/uL 0.36-1.02 L = 742-7) EOS x10^3 (test code = 0.10 10*3/uL 0.06-0.53 711-2) BASO x10^3 (test code <0.03 0.01-0.09 = 704-7) HYPERSEG NEUTS (test Present See_Comment A [Autom ated code = 765-8) message] The [employer] which generated this result transmitted reference range : (none). The reference range was not used to interpret this result as normal/abnormal . Lab Interpretation Abnormal (test code = 59426-4) [facility] METABOLIC PANEL (NA, K, CL, CO2, GLUCOSE, BUN, CREATININE, CA)2020-04-02 11:05:00 Test Item Value Reference Range Interpretation Comments NA (test code = 139 mmol/L 135-145 5936918399) K (test code = 4.0 mmol/L 3.5-5 3771284075) CL (test code = 108 mmol/L 98-108 9527210722) CO2 TOTAL (test code = 25 mmol/L 23-31 1737096650) AGAP (test code = 2-16 5376407713) BUN (test code = 6 mg/dL 7-23 L 2613531620) GLUCOSE (test code = 99 mg/dL 70-110 7963210927) CREATININE (test code = 0.92 mg/dL 0.6-1.25 4265770230) CALCIUM (test code = 8.3 mg/dL 8.6-10.6 L 0740859885) eGFR Calculation mL/min/1.73m2 (Non-) (test code = 7894431711) eGFR Calculation mL/min/1.73m2 () (test code = 7704220819) GILBERTO (test code = GILBERTO) Association of [...] tests). Lab Interpretation Abnormal (test code = 61675-9) [facility]MAG[facility]2020-08-10 11:05:00 Test Item Value Reference Range Interpretation Comments MAGNESIUM (test code = 4873172053) 2.0 mg/dL 1.7-2.4 Lab Interpretation (test code = Normal 83281-3) [facility] CampusCOVID-19 (ID NOW RAPID TESTING)2020-04-02 00:43:00 Test Item Value Reference Range Interpretation Comments SARS-CoV-2 Rapid ID NOW Not Detected Not Detected (test code = 09255-7) GILBERTO (test code = GILBERTO) ID NOW COVID-19 Assay is an isothermal nucleic acid amplification test intended for the qualitative detection of nucleic acid from SARS-CoV-2 viral RNA in nasopharyngeal ([employer]) specimens. It is used under Emergency Use [...] indicated. Lab Interpretation Normal (test code = 87742-6) [facility] CampusUrinalysis2020-08-08 11:39:00 Test Item Value Reference Range Interpretation Comments APPEARANCE (test code = Hazy Clear A 1432530487) COLOR (test code = Yellow Yellow 9359722149) PH (test code = 4.8-8.0 5905684259) SP GRAVITY (test code = 1.003-1.030 H 3913747944) GLU U QUAL (test code = Normal Normal 4255939925) BLOOD (test code = Negative Negative 5357221523) KETONES (test code = 5 mg/dL Negative A 6132335898) PROTEIN (test code = Negative Negative 2887-8) UROBILIN (test code = 2.0 mg/dL Normal A 1903992304) BILIRUBIN (test code = Negative Negative 9438874915) NITRITE (test code = Negative Negative 5191027833) LEUK ROGER (test code = Negative Negative 7779918941) RBC/HPF (test code = See_Comment [Autom ated message] 8269480970) The system [employer] generated this result transmit dain reference range : 0 - 3 HPF. The refe rence range was not u sed to interpret th is result as normal/abnormal . WBC/HPF (test code = See_Comment [Autom ated message] 7227487860) The system [employer] generated this result transmit dain reference range : 0 - 5 HPF. The refe rence range was not u sed to interpret th is result as normal/abnormal . BACTERIA (test code = Negative Negative 0145220784) CA OXALATE (test code = See_Comment H [Au tomated message] 3534122785) The system [employer] generated this result transmit dain reference range : <=1 HPF. The refere nce range was not u sed to interpret th is result as normal/abnormal . Lab Interpretation (test Abnormal code = 36255-4) [facility] CampusCT ABDOMEN PELVIS W [id number] 00:38:37 1. ?Massive air distention of the [...] [facility] (NA, K, CL, CO2, GLUCOSE, BUN, CREATININE, CA)2020-03-30 23:45:00 Test Item Value Reference Range Interpretation Comments NA (test code = 140 mmol/L 135-145 9977873072) K (test code = 4.3 mmol/L 3.5-5 2815845919) CL (test code = 101 mmol/L 98-108 1408975190) CO2 TOTAL (test code = 28 mmol/L 23-31 8759292460) AGAP (test code = 2-16 3336690929) BUN (test code = 24 mg/dL 7-23 H 3456731213) GLUCOSE (test code = 90 mg/dL 70-110 0908668832) CREATININE (test code = 1.29 mg/dL 0.6-1.25 H 8175511133) CALCIUM (test code = 9.4 mg/dL 8.6-10.6 0592700452) eGFR Calculation mL/min/1.73m2 (Non-) (test code = 0097240431) eGFR Calculation mL/min/1.73m2 () (test code = 6836396148) GILBERTO (test code = GILBERTO) Association of [...] tests). Lab Interpretation Abnormal (test code = 04143-1) [facility] 1 [id number] 23:00:46 No evidence for an acute cardiopulmonary [...] on the March 02, 2020 exam.RL: [id number] [facility] CampusTroponin [id number] 22:39:00 Test Item Value Reference Range Interpretation Comments TROPONIN I (test 0.008 ng/mL See_Comment [Automated code = 5089346316) message] The system which generated this result [...] ? Lab Interpretation Normal (test code = 89421-6) [facility] CampusN-TERMINAL [id number] 22:39:00 Test Item Value Reference Range Interpretation Comments NT-proBNP (test code 42 pg/mL See_Comment [Autom ated = 2151304653) message] The system which generated this result transmitted reference range : <=125. The reference range was not used to interpret this result as normal/abnormal . GILBERTO (test code = GILBERTO) Biotin has been reported to cause a negative bias, interpret results relative to patient's use of biotin. Lab Interpretation Normal (test code = 72215-1) [facility] CampusHepatic Function Panel (ALB, T.PRO, BILI T, BU/BC, ALT, AST, ALK PHOS)2020-03-30 22:27:00 Test Item Value Reference Range Interpretation Comments TOTAL BILI (test code = 7996138218) 0.5 mg/dL 0.1-1.1 BILI UNCON (test code = 1958732502) 0.3 mg/dL 0.1-1.1 BILI CONJ (test code = 5060611248) 0.0 mg/dL 0-0.3 T PROTEIN (test code = 5578665255) 6.7 g/dL 6.3-8.2 ALBUMIN (test code = 8828157341) 4.5 g/dL 3.5-5 ALK PHOS (test code = 6421336254) 57 U/L 34-122 ALTv (test code = 1742-6) 31 U/L 5-50 AST(SGOT) (test code = 1028472601) 38 U/L 13-40 Lab Interpretation (test code = Normal 64581-4) [facility] CampusLipase [id number] 22:27:00 Test Item Value Reference Range Interpretation Comments LIPASE (test code = 3221476420) 62 U/L 0-220 Lab Interpretation (test code = Normal 35872-3) [facility] CampusaPTT2020-08-07 22:25:00 Test Item Value Reference Range Interpretation Comments APTT Patient (test code = See_Comment [ Automated message] 3173-2) The system [employer] generated this result transmitted ref erence range: 26 - 36 Seconds. The re ference range was not u sed to interpret this result as normal/abnor mal. Lab Interpretation (test Normal code = 90634-3) [facility] CampusProthrombin Time (PT) / [id number] 22:25:00 Test Item Value Reference Range Interpretation [...] tions. Lab Interpretation (test Normal code = 84663-3) [facility] CampusCB with [id number] 22:17:00 Test Item Value Reference Range Interpretation Comments WBC (test code = See_Comment [Automated 6690-2) message] The sy stem which generated this result transmitted reference range : 4.20 - 10.70 10*3/?L. The reference range was not used to interpret this result as normal/abnormal . RBC (test code = See_Comment L [Automated 349-8) message] The sy stem which generated this [...] RDW-SD (test code = 46.9 fL 38.5-51.6 90051-6) RDW-CV (test code = 14.3 % 12.1-15.4 788-0) PLT (test code = See_Comment [Automated 777-3) message] The sy stem which generated this result transmitted reference range : 150 - 328 10*3/ ?L. The reference r meredith was not used to interpret this result as normal/abnormal . MPV (test code = 10.7 fL 9.8-13 56789-9) NRBC/100 WBC (test See_Comment [Automat ed code = 7003492191) message] The system which generated this result transmitted reference range : 0.0 - 10.0 /100 WBCs. The refer ence range was not u sed to interpret th is result as normal/abnormal . NRBC x10^3 (test code <0.01 See_Comment [Auto mated = 0735473476) message] The s ystem which generated this result transmitted reference range : 10*3/?L. The reference range was not used to interpret this result as normal/abnormal . GRAN MAT (NEUT) % 51.7 % (test code = 770-8) IMM GRAN % (test code 0.40 % = 2642031180) LYMPH % (test code = 32.8 % 736-9) MONO % (test code = 12.4 % 5905-5) EOS % (test code = 2.1 % 713-8) BASO % (test code = 0.6 % 706-2) GRAN MAT x10^3(ANC) 2.76 10*3/uL 1.99-6.95 (test code = 0824931190) IMM GRAN x10^3 (test <0.03 0-0.06 code = 3536898343) LYMPH x10^3 (test code 1.75 10*3/uL 1.09-3.23 = 731-0) MONO x10^3 (test code 0.66 10*3/uL 0.36-1.02 = 742-7) EOS x10^3 (test code = 0.11 10*3/uL 0.06-0.53 711-2) BASO x10^3 (test code 0.03 10*3/uL 0.01-0.09 = 704-7) Lab Interpretation Abnormal (test code = 78436-2) [facility] with [id number] 10:26:00 Test Item Value Reference Range Interpretation [...] RDW-SD (test code = 46.3 fL 38.5-51.6 91301-7) RDW-CV (test code = 14.2 % 12.1-15.4 788-0) PLT (test code = See_Comment L [Automated 777-3) message] The sy stem which generated this result transmitted reference range : 150 - 328 10*3/ ?L. The reference r meredith was not used to interpret this result as normal/abnormal . MPV (test code = 10.6 fL 9.8-13 86303-1) NRBC/100 WBC (test See_Comment [Automat ed code = 4417722328) message] The system which generated this result transmitted reference range : 0.0 - 10.0 /100 WBCs. The refer ence range was not u sed to interpret th is result as normal/abnormal . NRBC x10^3 (test code <0.01 See_Comment [Auto mated = 6442799210) message] The s ystem which generated this result transmitted reference range : 10*3/?L. The reference range was not used to interpret this result as normal/abnormal . GRAN MAT (NEUT) % 51.3 % (test code = 770-8) IMM GRAN % (test code 0.30 % = 9928061180) LYMPH % (test code = 32.2 % 736-9) MONO % (test code = 12.7 % 5905-5) EOS % (test code = 3.0 % 713-8) BASO % (test code = 0.5 % 706-2) GRAN MAT x10^3(ANC) 1.89 10*3/uL 1.99-6.95 L (test code = 0826424483) IMM GRAN x10^3 (test <0.03 0-0.06 code = 4413804777) LYMPH x10^3 (test code 1.19 10*3/uL 1.09-3.23 = 731-0) MONO x10^3 (test code 0.47 10*3/uL 0.36-1.02 = 742-7) EOS x10^3 (test code = 0.11 10*3/uL 0.06-0.53 711-2) BASO x10^3 (test code <0.03 0.01-0.09 = 704-7) Lab Interpretation Abnormal (test code = 80478-7) [facility] CampusMagnesium [id number] 10:17:00 Test Item Value Reference Range Interpretation Comments MAGNESIUM (test code = 7586487291) 2.0 mg/dL 1.7-2.4 Lab Interpretation (test code = Normal 59119-1) [facility]Bas[facility] Metabolic Panel (NA, K, CL, CO2, GLUCOSE, BUN, CREATININE, CA)2020-03-26 10:17:00 Test Item Value Reference Range Interpretation Comments NA (test code = 136 mmol/L 135-145 6964834530) K (test code = 4.6 mmol/L 3.5-5 Slight 6545199296) hemolysis CL (test code = 109 mmol/L 98-108 H 4731773928) CO2 TOTAL (test code 26 mmol/L 23-31 = 8964581439) AGAP (test code = 2-16 L 3588465649) BUN (test code = 22 mg/dL 7-23 Slight 7329656091) hemolysis GLUCOSE (test code = 82 mg/dL 70-110 7431068321) CREATININE (test code 0.88 mg/dL 0.6-1.25 = 9764551444) CALCIUM (test code = 8.1 mg/dL 8.6-10.6 L 8618720609) eGFR Calculation mL/min/1.73m2 (Non-) (test code = 5202644957) eGFR Calculation mL/min/1.73m2 () (test code = 6592737898) GILBERTO (test code = GILBERTO) Association of [...] tests). Lab Interpretation Abnormal (test code = 84271-6) [facility] CampusLactic Acid Whole [id number] 04:22:00 Test Item Value Reference Range Interpretation Comments LACTIC ACID (test code = 1.52 mmol/L 9010612103) [facility] CampusPhosphorus [id number] 03:37:00 Test Item Value Reference Range Interpretation Comments PHOSPHORUS (test code = 1943410507) 4.6 mg/dL 2.5-5 Lab Interpretation (test code = Normal 11727-3) [facility] CampusMAGNESIUM2020-08-03 03:37:00 Test Item Value Reference Range Interpretation Comments MAGNESIUM (test code = 9187419796) 2.3 mg/dL 1.7-2.4 Lab Interpretation (test code = Normal 82991-6) [facility] CampusCOVID-19 (ID NOW RAPID TESTING)2020-03-26 02:24:00 Test Item Value Reference Range Interpretation Comments SARS-CoV-2 Rapid ID NOW Not Detected Not Detected (test code = 26058-3) GILBERTO (test code = GILBERTO) ID NOW COVID-19 Assay is an isothermal nucleic acid amplification test intended for the qualitative detection of nucleic acid from SARS-CoV-2 viral RNA in nasopharyngeal ([employer]) specimens. It is used under Emergency Use [...] indicated. Lab Interpretation Normal (test code = 01182-1) [facility] CampusCT ABDOMEN PELVIS W [id number] 01:33:06 Redemonstration of severe dilatation of the [...] No focal bowel inflammation or wall thickening.. [facility]Bas[facility] Metabolic Panel (NA, K, CL, CO2, GLUCOSE, BUN, CREATININE, CA)2020-03-26 00:57:00 Test Item Value Reference Range Interpretation Comments NA (test code = 139 mmol/L 135-145 5070062834) K (test code = 4.4 mmol/L 3.5-5 6193102444) CL (test code = 105 mmol/L 98-108 9621506305) CO2 TOTAL (test code = 29 mmol/L 23-31 9946446610) AGAP (test code = 2-16 9689546094) BUN (test code = 28 mg/dL 7-23 H 3296985005) GLUCOSE (test code = 84 mg/dL 70-110 2539539298) CREATININE (test code = 1.19 mg/dL 0.6-1.25 8435626561) CALCIUM (test code = 8.9 mg/dL 8.6-10.6 1972521375) eGFR Calculation mL/min/1.73m2 (Non-) (test code = 7843898053) eGFR Calculation mL/min/1.73m2 () (test code = 2659315587) GILBERTO (test code = GILBERTO) Association of [...] tests). Lab Interpretation Abnormal (test code = 47675-3) [facility] CampusHepatic Function Panel (ALB, T.PRO, BILI T, BU/BC, ALT, AST, ALK PHOS)2020-03-26 00:57:00 Test Item Value Reference Range Interpretation Comments TOTAL BILI (test code = 7705165397) 0.2 mg/dL 0.1-1.1 BILI UNCON (test code = 8500195096) 0.0 mg/dL 0.1-1.1 L BILI CONJ (test code = 3978781966) 0.0 mg/dL 0-0.3 T PROTEIN (test code = 8970118139) 6.2 g/dL 6.3-8.2 L ALBUMIN (test code = 6600386349) 4.1 g/dL 3.5-5 ALK PHOS (test code = 3973380074) 56 U/L 34-122 ALTv (test code = 1742-6) 24 U/L 5-50 AST(SGOT) (test code = 6439159918) 28 U/L 13-40 Lab Interpretation (test code = Abnormal 90912-5) [facility] with Jiyqmqlipxml4766-03-57 00:47:00 Test Item Value Reference Range Interpretation [...] RDW-SD (test code = 45.9 fL 38.5-51.6 21567-4) RDW-CV (test code = 14.0 % 12.1-15.4 788-0) PLT (test code = See_Comment [Automated 777-3) message] The sy stem which generated this result transmitted reference range : 150 - 328 10*3/ ?L. The reference r meredith was not used to interpret this result as normal/abnormal . MPV (test code = 10.9 fL 9.8-13 84650-3) NRBC/100 WBC (test See_Comment [Automat ed code = 7326661316) message] The system which generated this result transmitted reference range : 0.0 - 10.0 /100 WBCs. The refer ence range was not u sed to interpret th is result as normal/abnormal . NRBC x10^3 (test code <0.01 See_Comment [Auto mated = 4437605673) message] The s ystem which generated this result transmitted reference range : 10*3/?L. The reference range was not used to interpret this result as normal/abnormal . GRAN MAT (NEUT) % 49.8 % (test code = 770-8) IMM GRAN % (test code 0.20 % = 1009087881) LYMPH % (test code = 32.0 % 736-9) MONO % (test code = 14.3 % 5905-5) EOS % (test code = 3.0 % 713-8) BASO % (test code = 0.7 % 706-2) GRAN MAT x10^3(ANC) 2.29 10*3/uL 1.99-6.95 (test code = 1550625843) IMM GRAN x10^3 (test <0.03 0-0.06 code = 1220744346) LYMPH x10^3 (test code 1.47 10*3/uL 1.09-3.23 = 731-0) MONO x10^3 (test code 0.66 10*3/uL 0.36-1.02 = 742-7) EOS x10^3 (test code = 0.14 10*3/uL 0.06-0.53 711-2) BASO x10^3 (test code 0.03 10*3/uL 0.01-0.09 = 704-7) Lab Interpretation Abnormal (test code = 02577-7) [facility] CampusMagnesium [id number] 05:23:00 Test Item Value Reference Range Interpretation Comments MAGNESIUM (test code = 1319518714) 2.1 mg/dL 1.7-2.4 Lab Interpretation (test code = Normal 37843-0) [facility] CampusCOVID-19 (ID NOW RAPID TESTING)2020-03-03 04:45:00 Test Item Value Reference Range Interpretation Comments SARS-CoV-2 Rapid ID NOW Not Detected Not Detected (test code = 24902-8) GILBERTO (test code = GILBERTO) ID NOW COVID-19 Assay is an isothermal nucleic acid amplification test intended for the qualitative detection of nucleic acid from SARS-CoV-2 viral RNA in nasopharyngeal ([employer]YOR [employer]ER) specimens. It is used under Emergency Use [...] indicated. Lab Interpretation Normal (test code = 70821-2) [facility] CampusProthrombin Time / [id number] 04:40:00 Test Item Value Reference Range Interpretation Comments PROTIME PATIENT (test See_Comment [Auto mated message] code = 5964-2) The system Hootsuite ich generated this result transmitted ref erence range: 10.1 - 1 2.6 Seconds. The re ference range was not u sed to interpret this result as normal/abnor mal. INR (test code = 6301-6) Nor mal INR <1.1; Warfarin Therap eutic range 2.0 to 3. 0 or 2.5 to 3.5, dep ending upon the indica tions. Lab Interpretation (test Normal code = 45046-0) [facility] CampusaPTT2020-07-11 04:40:00 Test Item Value Reference Range Interpretation Comments APTT Patient (test code = See_Comment [ Automated message] 3173-2) The system Hootsuiteic h generated this result transmitted ref erence range: 26 - 36 Seconds. The re ference range was not u sed to interpret this result as normal/abnor mal. Lab Interpretation (test Normal code = 35327-7) [facility] CampusPhosphorus [id number] 04:31:00 Test Item Value Reference Range Interpretation Comments PHOSPHORUS (test code = 1612076101) 4.0 mg/dL 2.5-5 Lab Interpretation (test code = Normal 47207-6) [facility] CampusXR ABDOMEN ACUTE [id number] 02:54:09 Impression: No radiographic evidence for acute cardiopulmonary disease. No radiographic evidence forpneumoperitoneum. Marked gaseous distention of predominantly large bowel loops in the abdomenand pelvis, similar to prior CT of 02/26/2020. On that CT, there was atransition in the distal descending colon, without mass lesion or definitesigmoid volvulus appreciated. RL: 460 AFC: 96524 Indication: Diffuse abdominal pain, obstructionComparison: CT the [...] lesion or definitesigmoid volvulus appreciated. RL: 460AF: [id number] signed by Angeli Carrillo MD, PhD at 03/02/2020 9:54 PM [facility] CampusUrinalysis2020-07-11 01:50:00 Test Item Value Reference Range Interpretation Comments APPEARANCE (test code = Hazy Clear A 6636926920) COLOR (test code = Tahira Yellow A 6198286040) PH (test code = 4.8-8.0 9184802508) SP GRAVITY (test code = 1.003-1.030 7511472386) GLU U QUAL (test code = Normal Normal 6686924848) BLOOD (test code = Negative Negative 2030104467) KETONES (test code = 5 mg/dL Negative A 6354478771) PROTEIN (test code = Negative Negative 2887-8) UROBILIN (test code = 2.0 mg/dL Normal A 3565630003) BILIRUBIN (test code = Negative Negative 4030417408) NITRITE (test code = Negative Negative 9787548483) LEUK ROGER (test code = Negative Negative 2254735871) RBC/HPF (test code = See_Comment [Autom ated message] 1615652033) The system [employer] generated this result transmit dain reference range : 0 - 3 HPF. The refe rence range was not u sed to interpret th is result as normal/abnormal . WBC/HPF (test code = See_Comment [Autom ated message] 6716093319) The system [employer] generated this result transmit dain reference range : 0 - 5 HPF. The refe rence range was not u sed to interpret th is result as normal/abnormal . BACTERIA (test code = Negative Negative 8932637936) MUCOUS (test code = Slight Negative LPF A 3862463301) SQ EPITH (test code = <1 See_Comment [Auto mated message] 9261172684) The system [employer] generated this result transmit dain reference range : <=2 HPF. The refere nce range was not u sed to interpret th is result as normal/abnormal . CA OXALATE (test code = See_Comment H [Au tomated message] 9945305786) The system [employer] generated this result transmit dain reference range : <=1 HPF. The refere nce range was not u sed to interpret th is result as normal/abnormal . SPERM (test code = See_Comment [Automat ed message] 5297392494) The system [employer] generated this result transmit dain reference range : <=1 HPF. The refere nce range was not u sed to interpret th is result as normal/abnormal . Lab Interpretation (test Abnormal code = 43633-6) [facility] Metabolic Panel (NA, K, CL, CO2, GLUCOSE, BUN, CREATININE, CA)2020-03-03 01:44:00 Test Item Value Reference Range Interpretation Comments NA (test code = 140 mmol/L 135-145 5491279647) K (test code = 4.1 mmol/L 3.5-5 5593599140) CL (test code = 106 mmol/L 98-108 0156797394) CO2 TOTAL (test code = 25 mmol/L 23-31 7339793368) AGAP (test code = 2-16 4201149977) BUN (test code = 17 mg/dL 7-23 0769143818) GLUCOSE (test code = 91 mg/dL 70-110 2015787000) CREATININE (test code 1.13 mg/dL 0.6-1.25 = 1002629625) CALCIUM (test code = 9.0 mg/dL 8.6-10.6 4955035390) eGFR Calculation mL/min/1.73m2 (Non-) (test code = 5361811925) eGFR Calculation mL/min/1.73m2 () (test code = 5753465415) GILBERTO (test code = GILBERTO) Association of [...] or urine or abnormalities in imaging tests). [facility] CampusHepatic Function Panel (ALB, T.PRO, BILI T, BU/BC, ALT, AST, ALK PHOS)2020-03-03 01:44:00 Test Item Value Reference Range Interpretation Comments TOTAL BILI (test code = 8663567106) 0.4 mg/dL 0.1-1.1 BILI UNCON (test code = 6409207895) 0.4 mg/dL 0.1-1.1 BILI CONJ (test code = 8248805674) 0.0 mg/dL 0-0.3 T PROTEIN (test code = 2427687117) 6.3 g/dL 6.3-8.2 ALBUMIN (test code = 2769721511) 4.2 g/dL 3.5-5 ALK PHOS (test code = 6042457994) 43 U/L 34-122 ALTv (test code = 1742-6) 20 U/L 5-50 AST(SGOT) (test code = 1037558272) 26 U/L 13-40 Lab Interpretation (test code = Normal 72863-6) [facility] WITH [id number] 01:37:00 Test Item Value Reference Range Interpretation [...] RDW-SD (test code = 45.0 fL 38.5-51.6 57009-7) RDW-CV (test code = 13.7 % 12.1-15.4 788-0) PLT (test code = See_Comment [Automated 777-3) message] The sy stem which generated this result transmitted reference range : 150 - 328 10*3/ ?L. The reference r meredith was not used to interpret this result as normal/abnormal . MPV (test code = 11.3 fL 9.8-13 35646-9) NRBC/100 WBC (test See_Comment [Automat ed code = 2997269947) message] The system which generated this result transmitted reference range : 0.0 - 10.0 /100 WBCs. The refer ence range was not u sed to interpret th is result as normal/abnormal . NRBC x10^3 (test code <0.01 See_Comment [Auto mated = 1496952604) message] The s ystem which generated this result transmitted reference range : 10*3/?L. The reference range was not used to interpret this result as normal/abnormal . GRAN MAT (NEUT) % 53.2 % (test code = 770-8) IMM GRAN % (test code 0.20 % = 6361268864) LYMPH % (test code = 34.5 % 736-9) MONO % (test code = 9.7 % 5905-5) EOS % (test code = 1.8 % 713-8) BASO % (test code = 0.6 % 706-2) GRAN MAT x10^3(ANC) 2.69 10*3/uL 1.99-6.95 (test code = 6668924580) IMM GRAN x10^3 (test <0.03 0-0.06 code = 1861950320) LYMPH x10^3 (test code 1.74 10*3/uL 1.09-3.23 = 731-0) MONO x10^3 (test code 0.49 10*3/uL 0.36-1.02 = 742-7) EOS x10^3 (test code = 0.09 10*3/uL 0.06-0.53 711-2) BASO x10^3 (test code 0.03 10*3/uL 0.01-0.09 = 704-7) Lab Interpretation Abnormal (test code = 25817-2) [facility] CampusLactic Acid Whole [id number] 01:28:00 Test Item Value Reference Range Interpretation Comments LACTIC ACID (test code = 1.62 mmol/L 1307096229) [facility] CampusDRUG PANEL 2 [id number] 22:13:00 Test Item Value Reference Range Interpretation Comments AMPHET (test code = Negative Negative 1916174213) LOS U (test code = Negative Negative 7661068748) BENZO U (test code = Negative Negative 1864008628) Cocaine Metabolite (test Negative Negative code = 0268119982) METHADONE (test code = Negative Negative 8824087845) OPIATES (test code = Negative Negative 8502114722) PCP (test code = Negative Negative 3453942667) THC (test code = Negative Negative 5727009847) GILBERTO (test code = GILBERTO) Urine Drug [...] testing). Lab Interpretation (test Normal code = 09551-7) [facility] CampusTHYROID STIMULATING [id number] 19:02:00 Test Item Value Reference Range Interpretation Comments TSH (test code = See_Comment [Automated message] 8229592243) The system [employer] generated this result transmitted ref erence range: 0.45 - 4 .70 mIU/L. The refe rence range was not u sed to interpret this result as normal/abnor mal. Lab Interpretation (test Normal code = 67645-3) [facility] [id number] 18:49:00 Test Item Value Reference Range Interpretation Comments FREE T3 (test code = 8466825482) 2.56 pg/mL 2.77-5.27 L Lab Interpretation (test code = Abnormal 58759-4) [facility] [id number] 18:49:00 Test Item Value Reference Range Interpretation Comments FREE T4 (test code = See_Comment [Autom ated message] 6840844756) The system [employer] generated this result transmitted ref erence range: 0.78 - 2 .20 ng/dL:. The ref erence range was not u sed to interpret this result as normal/abnor mal. Lab Interpretation (test Normal code = 29161-5) [facility] CampusCT ABDOMEN PELVIS W [id number] 20:56:47 Persistent marked severe dilatation of the [...] No focal hepatic lesions. Normal contour. Hepatomegaly, vtafccudw50.7 cm, in the craniocaudal dimension. Diffuse hypoattenuation [...] No focal hepatic lesions. Normal contour. Hepatomegaly, cntmqxrho03.7 cm, in the craniocaudal dimension. Diffuse hypoattenuation [...] this study and agree withthe above report. [facility] CampusCOVID-19 (ID NOW RAPID TESTING)2020-02-26 07:03:00 Test Item Value Reference Range Interpretation Comments SARS-CoV-2 Rapid ID NOW Not Detected Not Detected (test code = 31904-5) GILBERTO (test code = GILBERTO) ID NOW COVID-19 Assay is an isothermal nucleic acid amplification test intended for the qualitative detection of nucleic acid from SARS-CoV-2 viral RNA in nasopharyngeal ([employer]YOR LO[employer]ER) specimens. It is used under Emergency Use [...] indicated. Lab Interpretation Normal (test code = 05323-2) [facility] CampusXR ABDOMEN ACUTE [id number] 05:00:33 Impression: No radiographic evidence for acute cardiopulmonary disease. Marked gaseous distention ofthe colon, with a relative paucity of gas inthe distal sigmoid colon and rectum. This may reflect pseudoobstruction,but mechanical distal colonic obstruction cannot be excluded. RL: 460 AFC: 49028 Ordering physician: SABI Briggsdication: Abdominal distention Comparison: [...] in the distal sigmoid colon and rectum. [facility], Radiant Results Inft User - [...] distal colonic obstruction cannot be excluded.RL: 460AF: [id number] signed by Angeli Carrillo MD, PhD at 02/26/2020 12:00 [facility] Metabolic Panel (NA, K, CL, CO2, GLUCOSE, BUN, CREATININE, CA)2020-02-26 04:03:00 Test Item Value Reference Range Interpretation Comments NA (test code = 142 mmol/L 135-145 8827342396) K (test code = 4.1 mmol/L 3.5-5 7659983946) CL (test code = 107 mmol/L 98-108 4589192652) CO2 TOTAL (test code = 29 mmol/L 23-31 9852412906) AGAP (test code = 2-16 1785168032) BUN (test code = 13 mg/dL 7-23 2232509046) GLUCOSE (test code = 82 mg/dL 70-110 5597068878) CREATININE (test code 1.14 mg/dL 0.6-1.25 = 0144413335) CALCIUM (test code = 9.5 mg/dL 8.6-10.6 7006971322) eGFR Calculation mL/min/1.73m2 (Non-) (test code = 5439161278) eGFR Calculation mL/min/1.73m2 () (test code = 1417773048) GILBERTO (test code = GILBERTO) Association of [...] or urine or abnormalities in imaging tests). [facility] CampusHepatic Function Panel (ALB, T.PRO, BILI T, BU/BC, ALT, AST, ALK PHOS)2020-02-26 04:03:00 Test Item Value Reference Range Interpretation Comments TOTAL BILI (test code = 7477575956) 0.5 mg/dL 0.1-1.1 BILI UNCON (test code = 9608760251) 0.5 mg/dL 0.1-1.1 BILI CONJ (test code = 7440699777) 0.0 mg/dL 0-0.3 T PROTEIN (test code = 7209238389) 6.2 g/dL 6.3-8.2 L ALBUMIN (test code = 7167256279) 4.2 g/dL 3.5-5 ALK PHOS (test code = 9509014792) 40 U/L 34-122 ALTv (test code = 1742-6) 20 U/L 5-50 AST(SGOT) (test code = 4403770143) 26 U/L 13-40 Lab Interpretation (test code = Abnormal 96478-3) [facility] CampusLipase [id number] 04:03:00 Test Item Value Reference Range Interpretation Comments LIPASE (test code = 5412314621) 57 U/L 0-220 Lab Interpretation (test code = Normal 47408-1) [facility] CampusLactic Acid Whole [id number] 03:52:00 Test Item Value Reference Range Interpretation Comments LACTIC ACID (test code = 1.66 mmol/L 0.5-2.2 1559988148) [facility] WITH [id number] 03:47:00 Test Item Value Reference Range Interpretation [...] RDW-SD (test code = 45.1 fL 38.5-51.6 84937-5) RDW-CV (test code = 13.7 % 12.1-15.4 788-0) PLT (test code = See_Comment [Automated 777-3) message] The sy stem which generated this result transmitted reference range : 150 - 328 10*3/ ?L. The reference r meredith was not used to interpret this result as normal/abnormal . MPV (test code = 10.7 fL 9.8-13 10135-3) NRBC/100 WBC (test See_Comment [Automat ed code = 4707912617) message] The system which generated this result transmitted reference range : 0.0 - 10.0 /100 WBCs. The refer ence range was not u sed to interpret th is result as normal/abnormal . NRBC x10^3 (test code <0.01 See_Comment [Auto mated = 8500004350) message] The s ystem which generated this result transmitted reference range : 10*3/?L. The reference range was not used to interpret this result as normal/abnormal . GRAN MAT (NEUT) % 63.1 % (test code = 770-8) IMM GRAN % (test code 0.40 % = 6844620433) LYMPH % (test code = 25.1 % 736-9) MONO % (test code = 9.9 % 5905-5) EOS % (test code = 1.1 % 713-8) BASO % (test code = 0.4 % 706-2) GRAN MAT x10^3(ANC) 3.52 10*3/uL 1.99-6.95 (test code = 2297977024) IMM GRAN x10^3 (test <0.03 0-0.06 code = 7301283930) LYMPH x10^3 (test code 1.40 10*3/uL 1.09-3.23 = 731-0) MONO x10^3 (test code 0.55 10*3/uL 0.36-1.02 = 742-7) EOS x10^3 (test code = 0.06 10*3/uL 0.06-0.53 711-2) BASO x10^3 (test code <0.03 0.01-0.09 = 704-7) Lab Interpretation Abnormal (test code = 32443-6) [facility]- XR ABDOMEN 1 [id number] 12:53:00 Name: DORA JOSEPH [facility] : 1970 Age/S: 50 / M [address] [address] Unit #: [id number] Loc: [place] [address] 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 [facility] Acct: [id number] Dis Date: Status: ADM IN PHONE #: [phone] Exam Date: 02/25/2020 1036 FAX #: Reason: abdominal distention EXAMS: CPT: [id number] XR ABDOMEN 1 V 25579 Fluoro Time: DAP (Gy m2): Air Kerma [...] PAGE 1 Signed Report Name: DORA JOSEPH [facility] : 1970 Age/S: 50 / M [address] Unit #: [id number] Loc: [place] [address] 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 Acct: [id number] Dis Date: Status: ADM IN PHONE #: [phone] Exam Date: 02/25/2020 1036 FAX #: Reason: abdominal distention EXAMS: CPT: [id number] XR ABDOMEN 1 V 67220 Fluoro Time: DAP (Gy m2): Air Kerma (mGy): <Continued> Technologist: Nichole Dill RT(R) Trnscb Date/Time: 02/25/2020 (8183) tJUDSONEFM1 Orig Print D/T: S: 02/25/2020 (6330) PAGE 2 Signed ReportCOMPREHENSIVE METABOLIC [id number] 08:20:00 Test Item Value Reference Range Interpretation [...] 50-136 L TOTAL (test code = ALKP) [id number] 08:20:00 Test Item Value Reference Range Interpretation Comments MAGNESIUM (test code = MAG) 2.2 MG/DL 1.8-2.4 N THYROID STIMULATING [id number] 08:20:00 Test Item Value Reference Range Interpretation Comments THYROID STIMULATING HORMONE 5.430 mcIU/ML 0.340-4.820 H (test code = TSH) CBC W/AUTO [id number] 07:55:00 Test Item Value Reference Range Interpretation [...] N NRBC#) UA RFLX MICR CULT IF [id number] 12:29:00 Test Item Value Reference Range Interpretation [...] culture: Suprapubic PainUA RFLX MICR CULT IF [id number] 12:29:00 Test Item Value Reference Range Interpretation [...] for culture: Suprapubic PainCOVID 19 Asymptomatic IH [id number] 22:09:00 Test Item Value Reference Range Interpretation [...] tent with COVID-19. - CT ABD PELVIS W/YUXJ4801-12-97 21:10:00 Name: DORA JOSEPH [facility] : 1970 Age/S: 50 / M [address] Unit #: [id number] Loc: [place] [address] Phys: Evin Castellanos MD Acct: [id number] Dis Date: Status: REG ER PHONE #: [phone] Exam Date: 02/23/20202047 FAX #: Reason: diffuse abdomen pain and distention EXAMS: CPT: [id number] CT ABD PELVIS W/CONT 51989 EXAM: - CT ABD PELVIS W/CONT LOCATION: [...] 1 Signed Report (CONTINUED) Name: DORA JOSEPH [facility] : 1970 Age/S: 50 / M [address] Unit #: [id number] Loc: [place] [address] Phys: Evin Castellanos MD Acct: [id number] Dis Date: Status: REG ER PHONE #: [phone] Exam Date: 02/23/20202047 FAX #: Reason: diffuse abdomen pain and distention EXAMS: CPT: [id number] CTABD PELVIS W/CONT 86242 <Continued> CT. No bowel wall thickening or [...] by: Marybel José M.D. CC: Susana Meza [employer]; Carl Mauricio echnologist:Rudy Zuniga, RT(R)(CT)(MRI) CTDI: DLP: Trnscb Date/Time: 02/23/2020 (2109) t.SDR.TH15 Orig Print D/T: S: 02/23/2020 (2112) PAGE 2 Signed Report- XR CHEST 1 [id number] 21:03:00 Name: DORA JOSEPH [facility] : 1970 Age/S: 50 / M [address] Unit #: [id number] Loc: [place] [address] Phys: Evin Castellanos MD Acct: [id number] Dis Date: Status: REG ER PHONE #: [phone] Exam Date: 02/23/20202055 FAX #: Reason: Code Sepsis EXAMS: CPT: [id number] XRCHEST 1 V 81361 Fluoro Time: DAP (Gy m2): Air Kerma [...] disease. 2. Chronic colonic air distention unchanged. on0138 Reported and signed by: Monica Quijano MD CC: Susana Meza [employer]; Carl Luevano MD PAGE 1 Signed Report Name: DORA JOSEPH [facility] : 1970 Age/S: 50 / M [address] Unit #: [id number] Loc: [place] [address] Phys: Evin Castellanos MD Acct: [id number] Dis Date: Status: REG ER PHONE #: [phone] Exam Date: 02/23/20202055 FAX #: Reason: Code Sepsis EXAMS: CPT: [id number] XR CHEST 1 V 15819 Fluoro Time: DAP (Gy m2): Air Kerma (mGy): <Continued> Technologist: Rudy Zuniga RT(R)(CT)(MRI) Trnscb Date/Time: 02/23/2020 (2102) t.DUSTINW Orig Print D/T: S:02/23/2020 (2106) PAGE 2 [...] 8.5 MG/DL 8.5-10.1 N Completed by Nursing: RADHIKAHEPATIC FUNCTION [id number] 20:02:00 Test Item Value Reference Range Interpretation [...] N code = ALKP) Completed by Nursing: [id number] 20:02:00 Test Item Value Reference Range Interpretation Comments LIPASE (test code = LIP) 97 Unit/L 114-286 L Completed by Nursing: KLOMJANCAV-O9252-08-02 20:02:00 Test Item Value Reference Range Interpretation [...] may brittani yby method. Completed by Nursing: ALISACTIC [id number] 19:59:00 Test Item Value Reference Range Interpretation Comments LACTIC ACID (test code = LACT) 1.2 mmol/L 0.4-2.0 N CBC W/AUTO [id number] 19:46:00 Test Item Value Reference Range Interpretation [...] CRITERIA = MDIFF) - XR ABDOMEN 2 [id number] 06:22:00 Name: DORA JOSEPH [facility] : 1970 Age/S: 50 / M [address] Unit #: [id number] Loc: [place] [address] Phys: Leonidas Robertson MD Acct: [id number] Dis Date: Status: ADM INPHONE #: [phone] Exam Date: 02/19/2020 0440 FAX #: Reason: megacolon EXAMS: CPT: [id number] XR ABDOMEN 2 V 46171 Fluoro Time: DAP (Gy m2): Air Kerma [...] PAGE 1 Signed Report Name: DORA JOSEPH [facility] : 1970 Age/S: 50 / M [address] Unit #: [id number] Loc: [place] [address] Phys: Leonidas Robertson MD Acct: [id number] Dis Date: Status: ADM IN PHONE #: [phone] Exam Date: 02/19/2020 0440 FAX #: Reason: megacolon EXAMS: CPT: [id number] XR ABDOMEN 2 V 66132 Fluoro Time: DAP (Gy m2): Air Kerma (mGy): <Continued> Technologist: Carrie Barnett, RT(R)(CT) Trnscb Date/Time: 02/19/2020 (621) t.FLEXRLisethAL7 Orig Print D/T:S: 02/19/2020 (0649) PAGE 2 Signed ReportBASIC METABOLIC [id number] 05:52:00 Test Item Value Reference Range Interpretation [...] CA) 8.5 MG/DL 8.5-10.1 N CBC W/AUTO [id number] 05:40:00 Test Item Value Reference Range Interpretation [...] NO DIFF/SCN CRITERIA = MDIFF) BASIC METABOLIC [id number] 06:52:00 Test Item Value Reference Range Interpretation [...] CA) 8.3 MG/DL 8.5-10.1 L CBC W/AUTO [id number] 06:39:00 Test Item Value Reference Range Interpretation [...] DIFF/SCN CRITERIA = MDIFF) Coronavirus 2019 nCoV Ivlxclr8901-01-99 05:35:00 Test Item Value Reference Range Interpretation [...] of apat ient's recent exposure s, history, prese nce of clinicalsigns a nd symptoms consis tent with COVID-19. BASIC METABOLIC PANEL (NA, K, CL, CO2, GLUCOSE, BUN, CREATININE, CA)2020-02-03 16:58:00 Test Item Value Reference Range Interpretation Comments NA (test code = 139 mmol/L 135-145 9571791904) K (test code = 4.3 mmol/L 3.5-5 0570111890) CL (test code = 105 mmol/L 98-108 9170845739) CO2 TOTAL (test code = 30 mmol/L 23-31 8681574919) AGAP (test code = 2-16 8103025915) BUN (test code = 6 mg/dL 7-23 L 5655595388) GLUCOSE (test code = 94 mg/dL 70-110 1720946582) CREATININE (test code = 1.07 mg/dL 0.6-1.25 3388635745) CALCIUM (test code = 9.3 mg/dL 8.6-10.6 6583755293) eGFR Calculation mL/min/1.73m2 (Non-) (test code = 4369282763) eGFR Calculation mL/min/1.73m2 () (test code = 7900954538) GILBERTO (test code = GILBERTO) Association of [...] tests). Lab Interpretation Abnormal (test code = 41837-5) [facility] CampusMAGNESIUM2020-06-12 16:58:00 Test Item Value Reference Range Interpretation Comments MAGNESIUM (test code = 5631349677) 2.0 mg/dL 1.7-2.4 Lab Interpretation (test code = Normal 17070-7) [facility] CampusXR [id number] 17:02:411. Interval worsening of air distended loops [...] with cecum measuring up to 15 cm. [facility] WITH [id number] 07:20:00 Test Item Value Reference Range Interpretation Comments WBC (test code = See_Comment L [Automated 9790-2) message] The sy stem which generated this result transmitted reference range : 4.20 - 10.70 10*3/?L. The reference range was not used to interpret this result as normal/abnormal . RBC (test code = See_Comment [Automated 249-8) message] The sy stem which generated this [...] RDW-SD (test code = 46.5 fL 38.5-51.6 54057-8) RDW-CV (test code = 13.9 % 12.1-15.4 788-0) PLT (test code = See_Comment L [Automated 777-3) message] The sy stem which generated this result transmitted reference range : 150 - 328 10*3/ ?L. The reference r meredith was not used to interpret this result as normal/abnormal . MPV (test code = 10.7 fL 9.8-13 42155-9) NRBC/100 WBC (test See_Comment [Automat ed code = 0206172317) message] The system which generated this result transmitted reference range : 0.0 - 10.0 /100 WBCs. The refer ence range was not u sed to interpret th is result as normal/abnormal . NRBC x10^3 (test code <0.01 See_Comment [Auto mated = 4268422188) message] The s ystem which generated this result transmitted reference range : 10*3/?L. The reference range was not used to interpret this result as normal/abnormal . GRAN MAT (NEUT) % 48.6 % (test code = 770-8) IMM GRAN % (test code 0.20 % = 2973357856) LYMPH % (test code = 39.6 % 736-9) MONO % (test code = 8.4 % 5905-5) EOS % (test code = 2.7 % 713-8) BASO % (test code = 0.5 % 706-2) GRAN MAT x10^3(ANC) 1.96 10*3/uL 1.99-6.95 L (test code = 7026880096) IMM GRAN x10^3 (test <0.03 0-0.06 code = 4310226478) LYMPH x10^3 (test code 1.60 10*3/uL 1.09-3.23 = 731-0) MONO x10^3 (test code 0.34 10*3/uL 0.36-1.02 L = 742-7) EOS x10^3 (test code = 0.11 10*3/uL 0.06-0.53 711-2) BASO x10^3 (test code <0.03 0.01-0.09 = 704-7) Lab Interpretation Abnormal (test code = 53072-6) [facility] METABOLIC PANEL (NA, K, CL, CO2, GLUCOSE, BUN, CREATININE, CA)2020-01-31 06:32:00 Test Item Value Reference Range Interpretation Comments NA (test code = 138 mmol/L 135-145 5504108683) K (test code = 4.2 mmol/L 3.5-5 Slight 3510401180) hemolysis CL (test code = 108 mmol/L 98-108 1297328544) CO2 TOTAL (test code 22 mmol/L 23-31 L = 6855835484) AGAP (test code = 2-16 2641202776) BUN (test code = 7 mg/dL 7-23 Slight 3541004368) hemolysis GLUCOSE (test code = 92 mg/dL 70-110 3560232733) CREATININE (test code 1.02 mg/dL 0.6-1.25 = 3826226809) CALCIUM (test code = 8.9 mg/dL 8.6-10.6 4235076755) eGFR Calculation mL/min/1.73m2 (Non-) (test code = 5097930420) eGFR Calculation mL/min/1.73m2 () (test code = 0020288373) GILBERTO (test code = GILBERTO) Association of [...] tests). Lab Interpretation Abnormal (test code = 54012-2) [facility] WITH [id number] 11:00:00 Test Item Value Reference Range Interpretation [...] RDW-SD (test code = 48.7 fL 38.5-51.6 95274-4) RDW-CV (test code = 14.4 % 12.1-15.4 788-0) PLT (test code = See_Comment L [Automated 777-3) message] The sy stem which generated this result transmitted reference range : 150 - 328 10*3/ ?L. The reference r meredith was not used to interpret this result as normal/abnormal . MPV (test code = 10.7 fL 9.8-13 23177-6) IPF % (test code = 5.1 % 1.2-10.7 Platelet count 2614324913) measured by fluorescence method. NRBC/100 WBC (test See_Comment [Automat ed code = 2508473450) message] The system which generated this result transmitted reference range : 0.0 - 10.0 /100 WBCs. The refer ence range was not u sed to interpret th is result as normal/abnormal . NRBC x10^3 (test code <0.01 See_Comment [Auto mated = 5158348524) message] The s ystem which generated this result transmitted reference range : 10*3/?L. The reference range was not used to interpret this result as normal/abnormal . SEG % (test code = 53 % 33-76 87429-5) BAND % (test code = 1 % 0-1 37183-5) LYMPH % (test code = 39 % 14-54 22006-4) MONO % (test code = 4 % 0-4 83463-5) EOS % (test code = 3 % 0-3 86206-3) ANC (test code = 1.93 10*3/uL 1.99-6.95 L 4285385626) Lab Interpretation Abnormal (test code = 15702-4) [facility] Metabolic Panel (NA, K, CL, CO2, GLUCOSE, BUN, CREATININE, CA)2020-01-29 10:23:00 Test Item Value Reference Range Interpretation Comments NA (test code = 138 mmol/L 135-145 9457793616) K (test code = 4.0 mmol/L 3.5-5 4775296721) CL (test code = 109 mmol/L 98-108 H 3719927837) CO2 TOTAL (test code = 27 mmol/L 23-31 9783988158) AGAP (test code = 2-16 1038626268) BUN (test code = 16 mg/dL 7-23 9711210373) GLUCOSE (test code = 81 mg/dL 70-110 8666399096) CREATININE (test code = 1.14 mg/dL 0.6-1.25 8716551624) CALCIUM (test code = 8.6 mg/dL 8.6-10.6 9961904347) eGFR Calculation mL/min/1.73m2 (Non-) (test code = 1771935426) eGFR Calculation mL/min/1.73m2 () (test code = 9230216926) GILBERTO (test code = GILBERTO) Association of [...] tests). Lab Interpretation Abnormal (test code = 36289-5) [facility]ON[facility] COVID-19 [id number] 04:27:00 Test Item Value Reference Range Interpretation Comments SARS-CoV-2 Rapid ID NOW Not Detected Not Detected (test code = 32026-4) GILBERTO (test code = GILBERTO) ID NOW COVID-19 Assay is an isothermal nucleic acid amplification test intended for the qualitative detection of nucleic acid from SARS-CoV-2 viral RNA in nasopharyngeal ([employer]) specimens. It is used under Emergency Use [...] indicated. Lab Interpretation Normal (test code = 15293-7) [facility] CampusLactic Acid Whole [id number] 04:10:00 Test Item Value Reference Range Interpretation Comments LACTIC ACID (test code = 1.74 mmol/L 0.5-2.2 3342200192) [facility]COVID-[facility] (ID NOW RAPID TESTING)2020-01-29 02:17:00 Test Item Value Reference Range Interpretation Comments SARS-CoV-2 Rapid ID NOW Not Detected Not Detected (test code = 84852-7) GILBERTO (test code = GILBERTO) ID NOW COVID-19 Assay is an isothermal nucleic acid amplification test intended for the qualitative detection of nucleic acid from SARS-CoV-2 viral RNA in nasopharyngeal ([employer]ER) specimens. It is used under Emergency Use [...] indicated. Lab Interpretation Normal (test code = 62896-6) [facility] CampusUrinalysis2020-06-07 02:14:00 Test Item Value Reference Range Interpretation Comments APPEARANCE (test code = Clear Clear 5602387445) COLOR (test code = Dark Yellow Yellow A 9696065032) PH (test code = 4.8-8.0 1837140222) SP GRAVITY (test code = 1.003-1.030 H 9990090995) GLU U QUAL (test code = Normal Normal 1197299260) BLOOD (test code = 1+ Negative A 4998443662) KETONES (test code = 5 mg/dL Negative A 1246806990) PROTEIN (test code = Negative Negative 2887-8) UROBILIN (test code = Normal Normal 9829024611) BILIRUBIN (test code = Negative Negative 7406445148) NITRITE (test code = Negative Negative 8051494055) LEUK ROGER (test code = Negative Negative 9215120829) RBC/HPF (test code = See_Comment H [Autom ated 6971177861) message] The sy stem which generated this result transmitted reference range : 0 - 3 HPF. The reference range was not used to interpret this result as normal/abnormal . WBC/HPF (test code = See_Comment [Autom ated 2158657394) message] The sy stem which generated this result transmitted reference range : 0 - 5 HPF. The reference range was not used to interpret this result as normal/abnormal . BACTERIA (test code = Moderate Negative A 8043319682) MUCOUS (test code = Slight Negative LPF A 8538214406) AMORPHOUS (test code = Rare Rare HPF 8781406904) SQ EPITH (test code = <1 See_Comment [Auto mated 4532366658) message] The sy stem which generated this result transmitted reference range : <=2 HPF. The reference range was not used to interpret this result as normal/abnormal . CA OXALATE (test code = See_Comment H [Au tomated 5149351655) message] The sy stem which generated this result transmitted reference range : <=1 HPF. The reference range was not used to interpret this result as normal/abnormal . HYAL CAST (test code = See_Comment H [Aut omated 0430988434) message] The sy stem which generated this result transmitted reference range : <=2 LPF. The reference range was not used to interpret this result as normal/abnormal . ASCORBIC ACID (test Negative code = 7287376752) Lab Interpretation Abnormal (test code = 21143-2) [facility] CampusCT ABDOMEN PELVIS W [id number] 00:25:08Persistent marked and severe dilatation of the [...] is essentially stable compared to prior examination. [facility] Met[facility] (NA, K, CL, CO2, GLUCOSE, BUN, CREATININE, CA)2020-01-28 23:38:00 Test Item Value Reference Range Interpretation Comments NA (test code = 143 mmol/L 135-145 0588420091) K (test code = 4.2 mmol/L 3.5-5 5377726285) CL (test code = 111 mmol/L 98-108 H 5075698498) CO2 TOTAL (test code = 28 mmol/L 23-31 4381440658) AGAP (test code = 2-16 2384624603) BUN (test code = 15 mg/dL - 5216517328) GLUCOSE (test code = 68 mg/dL 70-110 L 6823937769) CREATININE (test code = 1.32 mg/dL 0.6-1.25 H 7254257569) CALCIUM (test code = 9.0 mg/dL 8.6-10.6 7596485033) eGFR Calculation mL/min/1.73m2 (Non-) (test code = 2101788388) eGFR Calculation mL/min/1.73m2 () (test code = 0983976096) GILBERTO (test code = GILBERTO) Association of [...] tests). Lab Interpretation Abnormal (test code = 75404-0) [facility] CampusHepatic Function Panel (ALB, T.PRO, BILI T, BU/BC, ALT, AST, ALK PHOS)2020-01-28 23:38:00 Test Item Value Reference Range Interpretation Comments TOTAL BILI (test code = 0554404978) 0.6 mg/dL 0.1-1.1 BILI UNCON (test code = 4065225420) 0.6 mg/dL 0.1-1.1 BILI CONJ (test code = 7194760286) 0.0 mg/dL 0-0.3 T PROTEIN (test code = 2842827272) 5.7 g/dL 6.3-8.2 L ALBUMIN (test code = 3520481156) 3.8 g/dL 3.5-5 ALK PHOS (test code = 3649584626) 37 U/L 34-122 ALTv (test code = 1742-6) 23 U/L 5-50 AST(SGOT) (test code = 3378337440) 25 U/L 13-40 Lab Interpretation (test code = Abnormal 87560-0) [facility] CampusLipase [id number] 23:38:00 Test Item Value Reference Range Interpretation Comments LIPASE (test code = 4128262696) 62 U/L 0-220 Lab Interpretation (test code = Normal 61587-2) [facility] CampusCB WITH [id number] 23:29:00 Test Item Value Reference Range Interpretation Comments WBC (test code = See_Comment [Automated 3390-2) message] The sy stem which generated this result transmitted reference range : 4.20 - 10.70 10*3/?L. The reference range was not used to interpret this result as normal/abnormal . RBC (test code = See_Comment L [Automated 369-8) message] The sy stem which generated this [...] RDW-SD (test code = 47.5 fL 38.5-51.6 77097-9) RDW-CV (test code = 14.3 % 12.1-15.4 788-0) PLT (test code = See_Comment [Automated 777-3) message] The sy stem which generated this result transmitted reference range : 150 - 328 10*3/ ?L. The reference r meredith was not used to interpret this result as normal/abnormal . MPV (test code = 10.6 fL 9.8-13 75151-2) NRBC/100 WBC (test See_Comment [Automat ed code = 5028588374) message] The system which generated this result transmitted reference range : 0.0 - 10.0 /100 WBCs. The refer ence range was not u sed to interpret th is result as normal/abnormal . NRBC x10^3 (test code <0.01 See_Comment [Auto mated = 6114036944) message] The s ystem which generated this result transmitted reference range : 10*3/?L. The reference range was not used to interpret this result as normal/abnormal . GRAN MAT (NEUT) % 50.1 % (test code = 770-8) IMM GRAN % (test code 0.20 % = 0026080407) LYMPH % (test code = 34.7 % 736-9) MONO % (test code = 12.5 % 5905-5) EOS % (test code = 1.8 % 713-8) BASO % (test code = 0.7 % 706-2) GRAN MAT x10^3(ANC) 2.28 10*3/uL 1.99-6.95 (test code = 6626716275) IMM GRAN x10^3 (test <0.03 0-0.06 code = 0436603943) LYMPH x10^3 (test code 1.58 10*3/uL 1.09-3.23 = 731-0) MONO x10^3 (test code 0.57 10*3/uL 0.36-1.02 = 742-7) EOS x10^3 (test code = 0.08 10*3/uL 0.06-0.53 711-2) BASO x10^3 (test code 0.03 10*3/uL 0.01-0.09 = 704-7) Lab Interpretation Abnormal (test code = 97406-6) [facility] METABOLIC PANEL (NA, K, CL, CO2, GLUCOSE, BUN, CREATININE, CA)2020-01-26 18:34:00 Test Item Value Reference Range Interpretation Comments NA (test code = 138 mmol/L 135-145 3652628529) K (test code = 3.7 mmol/L 3.5-5 6207353896) CL (test code = 108 mmol/L 98-108 1567228981) CO2 TOTAL (test code = 25 mmol/L 23-31 7594815259) AGAP (test code = 2-16 4936977880) BUN (test code = 9 mg/dL 7-23 2036349379) GLUCOSE (test code = 107 mg/dL 70-110 3075659761) CREATININE (test code 0.96 mg/dL 0.6-1.25 = 7654999589) CALCIUM (test code = 8.7 mg/dL 8.6-10.6 5513122936) eGFR Calculation mL/min/1.73m2 (Non-) (test code = 2939982339) eGFR Calculation mL/min/1.73m2 () (test code = 7287861761) GILBERTO (test code = GILBERTO) Association of [...] or urine or abnormalities in imaging tests). [facility] CampusMagnesium [id number] 08:33:00 Test Item Value Reference Range Interpretation Comments MAGNESIUM (test code = 1.9 mg/dL 1.7-2.4 Sligh t hemolysis 6123207618) Lab Interpretation (test Normal code = 15324-3) [facility] CampusXR [id number] 06:18:53 Redemonstration of marked gaseous distention of the transverse anddescending colon. RL: 460 AFC: [id number] Ordering physician: HELENE GRIFFIN INDICATION: Abdominal pain [...] distention of the transverse anddescending colon.RL: 460AFC: [id number] signed by Angeli Carrillo MD, PhD at 01/26/2020 1:18 AMUnBaylor [facility] Phosphorus [id number] 10:11:00 Test Item Value Reference Range Interpretation Comments PHOSPHORUS (test code = 0951052350) 3.9 mg/dL 2.5-5 Lab Interpretation (test code = Normal 90003-0) [facility] CampusCOVID-19 (ID NOW RAPID TESTING)2020-01-25 05:12:00 Test Item Value Reference Range Interpretation Comments SARS-CoV-2 Rapid ID NOW Not Detected Not Detected (test code = 19554-7) GILBERTO (test code = GILBERTO) ID NOW COVID-19 Assay is an isothermal nucleic acid amplification test intended for the qualitative detection of nucleic acid from SARS-CoV-2 viral RNA in nasopharyngeal ([employer]) specimens. It is used under Emergency Use [...] indicated. Lab Interpretation Normal (test code = 97353-2) [facility] CampusLactic Acid Whole [id number] 04:34:00 Test Item Value Reference Range Interpretation Comments LACTIC ACID (test code = 0.89 mmol/L 0.5-2.2 8958740256) [facility] CampusCT ABDOMEN PELVIS W [id number] 02:47:02Impression: Marked distention and dilatation of the [...] bowel as well. Rectal tubedecompression may be considered.[facility] TsfuaxIhewzmujpb9695-44-97 01:51:00 Test Item Value Reference Range Interpretation Comments APPEARANCE (test code = Hazy Clear A 3588151483) COLOR (test code = Yellow Yellow 7503750554) PH (test code = 4.8-8.0 3941089554) SP GRAVITY (test code = 1.003-1.030 1576359499) GLU U QUAL (test code = Normal Normal 9528469172) BLOOD (test code = Negative Negative 8532103688) KETONES (test code = Negative Negative 1650617212) PROTEIN (test code = Negative Negative 2887-8) UROBILIN (test code = Normal Normal 5046975534) BILIRUBIN (test code = Negative Negative 3466987054) NITRITE (test code = Negative Negative 5658275132) LEUK ROGER (test code = Negative Negative 0337221106) RBC/HPF (test code = See_Comment H [Autom ated message] 8162405238) The system [employer] generated this result transmitted ref erence range: 0 - 3 HP F. The reference range was not used to int erpret this result as normal/abnormal . WBC/HPF (test code = See_Comment [Autom ated message] 5538669352) The system [employer] generated this result transmitted ref erence range: 0 - 5 HP F. The reference range was not used to int erpret this result as normal/abnormal . BACTERIA (test code = Negative Negative 6703405002) SQ EPITH (test code = <1 See_Comment [Auto mated message] 0579404276) The system [employer] generated this result transmitted ref erence range: <=2 HPF. The reference range was not used to int erpret this result as normal/abnormal . CA OXALATE (test code = See_Comment H [Au tomated message] 1414565129) The system [employer] generated this result transmitted ref erence range: <=1 HPF. The reference range was not used to int erpret this result as normal/abnormal . Lab Interpretation (test Abnormal code = 21504-6) [facility] CampusBasi Metabolic Panel (NA, K, CL, CO2, GLUCOSE, BUN, CREATININE, CA)2020-01-25 01:01:00 Test Item Value Reference Range Interpretation Comments NA (test code = 139 mmol/L 135-145 9751812568) K (test code = 4.6 mmol/L 3.5-5 Slight hemoly sis 6389859785) CL (test code = 107 mmol/L 98-108 5094647564) CO2 TOTAL (test 26 mmol/L 23-31 code = 5899588051) AGAP (test code = 2-16 2767336064) BUN (test code = 23 mg/dL 7-23 Slight hemo lysis 7935661071) GLUCOSE (test code 94 mg/dL 70-110 = 3355633721) CREATININE (test 1.13 mg/dL 0.6-1.25 code = 5772639623) CALCIUM (test code 8.9 mg/dL 8.6-10.6 = 3036703433) eGFR Calculation mL/min/1.73m2 (Non-) (test code = 8104636937) eGFR Calculation mL/min/1.73m2 () (test code = 0717796772) GILBERTO (test code = Association of GILBERTO) [...] or urine or abnormalities in imaging tests). [facility] CampusHepatic Function Panel (ALB, T.PRO, BILI T, BU/BC, ALT, AST, ALK PHOS)2020-01-25 01:01:00 Test Item Value Reference Range Interpretation Comments TOTAL BILI (test code = 7463179884) 0.7 mg/dL 0.1-1.1 BILI UNCON (test code = 1453096088) 0.6 mg/dL 0.1-1.1 BILI CONJ (test code = 9703946402) 0.0 mg/dL 0-0.3 T PROTEIN (test code = 9220795622) 6.2 g/dL 6.3-8.2 L ALBUMIN (test code = 4709761145) 4.1 g/dL 3.5-5 ALK PHOS (test code = 8945129494) 46 U/L 34-122 ALTv (test code = 1742-6) 27 U/L 5-50 AST(SGOT) (test code = 7126119857) 31 U/L 13-40 Lab Interpretation (test code = Abnormal 03881-1) [facility] CampusLipase [id number] 01:01:00 Test Item Value Reference Range Interpretation Comments LIPASE (test code = 8169277268) 246 U/L 0-220 H Lab Interpretation (test code = Abnormal 13488-3) [facility] CampusCBC WITH [id number] 00:49:00 Test Item Value Reference Range Interpretation [...] RDW-SD (test code = 46.8 fL 38.5-51.6 94258-4) RDW-CV (test code = 14.2 % 12.1-15.4 788-0) PLT (test code = See_Comment [Automated 777-3) message] The sy stem which generated this result transmitted reference range : 150 - 328 10*3/ ?L. The reference r meredith was not used to interpret this result as normal/abnormal . MPV (test code = 10.7 fL 9.8-13 01061-9) NRBC/100 WBC (test See_Comment [Automat ed code = 6934092126) message] The system which generated this result transmitted reference range : 0.0 - 10.0 /100 WBCs. The refer ence range was not u sed to interpret th is result as normal/abnormal . NRBC x10^3 (test code <0.01 See_Comment [Auto mated = 9499260124) message] The s ystem which generated this result transmitted reference range : 10*3/?L. The reference range was not used to interpret this result as normal/abnormal . GRAN MAT (NEUT) % 56.9 % (test code = 770-8) IMM GRAN % (test code 0.20 % = 8892696134) LYMPH % (test code = 31.2 % 736-9) MONO % (test code = 9.7 % 5905-5) EOS % (test code = 1.6 % 713-8) BASO % (test code = 0.4 % 706-2) GRAN MAT x10^3(ANC) 2.86 10*3/uL 1.99-6.95 (test code = 8643588854) IMM GRAN x10^3 (test <0.03 0-0.06 code = 9947049483) LYMPH x10^3 (test code 1.57 10*3/uL 1.09-3.23 = 731-0) MONO x10^3 (test code 0.49 10*3/uL 0.36-1.02 = 742-7) EOS x10^3 (test code = 0.08 10*3/uL 0.06-0.53 711-2) BASO x10^3 (test code <0.03 0.01-0.09 = 704-7) Lab Interpretation Abnormal (test code = 69596-0) [facility]- XR ABDOMEN 1 [id number] 07:32:00 Name: DORA JOSEPH [facility] : 1970 Age/S: 49 / M [address] [address] Unit #: [id number] Loc: [place] [address] Phys: Jay Mayo MD Acct: [id number] Dis Date: Status: ADM IN PHONE #: [phone] Exam Date: 01/10/2020 0658 FAX #: Reason: follow up colonic ileus EXAMS: CPT: [id number] XR ABDOMEN 1 V 33200 Fluoro Time: DAP (Gy m2): Air Kerma [...] PAGE 1 Signed Report Name: DORA JOSEPH [facility] : 1970Age/S: 49 / M [address] [address] Unit #: [id number] Loc: [place] [address] Phys: Jay Mayo MD Acct: [id number] Dis Date: Status: ADM IN PHONE #: [phone] Exam Date: 01/10/2020 0658 FAX #: Reason: follow up colonic ileus EXAMS: CPT: [id number] XR ABDOMEN 1 V 72898 Fluoro Time: DAP (Gym2): Air Kerma (mGy): <Continued> Technologist: Bakari De Leon RT(R)(CT) Trnscb Date/Time: 01/10/2020 (0732) Donna5 Orig Print D/T: S: 01/10/2020 (0736) PAGE 2 Signed Report COMPREHENSIVE METABOLIC [id number] 05:56:00 Test Item Value Reference Range Interpretation [...] TOTAL (test code = ALKP) CBC W/AUTO [id number] 05:42:00 Test Item Value Reference Range Interpretation [...] = NO DIFF/SCN CRITERIA MDIFF) BASIC METABOLIC [id number] 06:59:00 Test Item Value Reference Range Interpretation [...] code = CA) 8.5 MG/DL 8.5-10.1 N [id number] 06:59:00 Test Item Value Reference Range Interpretation Comments MAGNESIUM (test code = MAG) 2.2 MG/DL 1.8-2.4 PROTHROMBIN [id number] 06:39:00 Test Item Value Reference Range Interpretation Comments PT PATIENT (test code = PTP) 13.1 SECONDS 9.3-12.9 H INTERNATIONAL NORMAL RATIO 1.16 INR Unit 0.8-1.2 N (test code = INR) CBC W/AUTO [id number] 06:22:00 Test Item Value Reference Range Interpretation [...] DIFF/SCN CRITERIA MDIFF) - XR ABDOMEN 1 [id number] 05:39:00 Name: DORA JOSEPH [facility] : 1970 Age/S: 49 / M [address] [address] Unit #: [id number] Loc: [place] [address] 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 Acct: [id number] Dis Date: Status: ADM IN PHONE #: [phone] Exam Date: 01/09/2020522 FAX #: Reason: colonic ileus/obstruction EXAMS: CPT: [id number] XR ABDOMEN 1 V 41181 Fluoro Time: DAP (Gy m2): Air Kerma [...] PAGE 1 Signed Report Name: DORA JOSEPH [facility] : 1970 Age/S: 49 / M [address] [address] Unit #: [id number] Loc: [place] [address] 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 Acct: [id number] Dis Date: Status: ADM IN PHONE #: [phone] Date: 01/09/2020522 FAX #: Reason: colonic ileus/obstruction EXAMS: CPT: [id number] XR ABDOMEN 1 V 66366 Fluoro Time: DAP (Gy m2): Air Kerma (mGy): <Continued> Technologist: Carrie Barnett, RT(R)(CT) Trnscb Date/Time: 01/09/2020 (0519) Candido.FC Orig Print D/T: S: 01/09/2020 (0588) PAGE2 Signed ReportCoronavirus 2019 nCoV [id number] 22:38:00 Test Item Value Reference Range Interpretation Comments Coronavirus 2019 nCoV Bedside (test Negative Negative code = [id number]) Emergent procedure? YESCoronavirus 2019 nCoV [id number] 22:38:00 Test Item Value Reference Range Interpretation Comments Coronavirus 2019 nCoV Bedside (test Negative Negative code = [id number]) Emergent procedure? YESBASIC METABOLIC [id number] 18:42:00 Test Item Value Reference Range Interpretation [...] CA) 8.5 MG/DL 8.5-10.1 N CBC W/AUTO [id number] 10:50:00 Test Item Value Reference Range Interpretation [...] = NO DIFF/SCN CRITERIA MDIFF) COMPREHENSIVE METABOLIC [id number] 10:46:00 Test Item Value Reference Range Interpretation [...] 50-136 N TOTAL (test code = ALKP) [id number] 10:46:00 Test Item Value Reference Range Interpretation Comments MAGNESIUM (test code = MAG) 2.6 MG/DL 1.8-2.4 H COMPREHENSIVE METABOLIC [id number] 10:34:00 Test Item Value Reference Range Interpretation [...] TOTAL (test Unit/L 50-136 code = ALKP) [id number] 10:34:00 Test Item Value Reference Range Interpretation Comments MAGNESIUM (test code = MAG) MG/DL 1.8-2.4 - XR ABDOMEN 1 [id number] 08:28:00 Name: DORA JOSEPH Kamas : 1970 Age/S: 49 / M [id number] Unit #: [id number] Loc: [place] [address] Phys: Yas Edwards MD Acct: [id number] Dis Date: Status: ADM IN PHONE #: [phone] Exam Date: 01/08/2020509 FAX #: Reason: ileus EXAMS: CPT: [id number] XR ABDOMEN 1 V [id number] Fluoro Time: DAP (Gy m2): Air Kerma [...] PAGE 1 Signed Report Name: DORA JOSEPH Kamas : 1970 Age/S: 49 / M [id number] [place] [address] Unit #: [id number] Loc: [place], [place] [address] Phys: Berta Edwards Acct: [id number] Dis Date: Status: ADM IN PHONE #: [phone] Exam Date: 01/08/2020 05 FAX#: Reason: ileus EXAMS: CPT: [id number] XR ABDOMEN 1 V 42713 Fluoro Time: DAP (Gy m2): Air Kerma (mGy): <Continued> Technologist: Carrie Barnett, RT(R)(CT); ... Trnscb Date/Time: 01/08/2020 (0828) [email or web address] Orig Print D/T: S: 01/08/2020 (5558) PAGE 2 Signed ReportCOMPREHENSIVE METABOLIC [id number] 07:08:00 Test Item Value Reference Range Interpretation [...] 50-136 L TOTAL (test code = ALKP) [id number] 07:08:00 Test Item Value Reference Range Interpretation Comments MAGNESIUM (test code = MAG) 1.3 MG/DL 1.8-2.4 L COMPREHENSIVE METABOLIC [id number] 05:16:00 Test Item Value Reference Range Interpretation [...] 50-136 L TOTAL (test code = ALKP) [id number] 05:16:00 Test Item Value Reference Range Interpretation Comments MAGNESIUM (test code = MAG) 1.3 MG/DL 1.8-2.4 L CBC W/AUTO [id number] 05:02:00 Test Item Value Reference Range Interpretation [...] (test code = NO DIFF/SCN CRITERIA MDIFF) [id number] 16:51:00 Test Item Value Reference Range Interpretation Comments MAGNESIUM (test code = MAG) 2.3 MG/DL 1.8-2.4 N FE W/TOTAL IRON BINDING CAP.2020-01-07 16:51:00 Test Item Value Reference Range Interpretation Comments SERUM IRON (test code = IRON) 38 mcG/DL 65-175 L TOTAL IRON BINDING CAPACITY (test 322 mcG/DL 250-450 N code = TIBC) IRON SATURATION (test code = 12 % calc 12-57 N FESAT) [id number] 16:51:00 Test Item Value Reference Range Interpretation Comments FERRITIN (test code = DAVID) 17.6 NG/ML 5.0-323.0 N CALCIUM [id number] 16:50:00 Test Item Value Reference Range Interpretation Comments CALCIUM IONIZED (test code = NAVEED) 1.12 mmol/L 1.12-1.32 N - XR ABDOMEN 1 [id number] 10:29:00 Name: DORA JOSEPH Kamas : 1970 Age/S: 49 / M [address] [facility] Unit #: [id number] Loc: [place] [address] Phys: Verona Frost PA-C Acct: [id number] Dis Date: Status: ADM IN PHONE #: [phone] Exam Date: 01/07/2020 0712 FAX #: Reason: reassess SBO EXAMS: CPT: [id number] XR ABDOMEN 1 V 35406 Fluoro Time: DAP (Gy m2): Air Kerma [...] PAGE 1 Signed Report Name: DORA JOSEPH Kamas : 1970 Age/S: 49 / M [address] [facility] Unit #: [id number] Loc: [place] [address] Phys:Verona Frost PA-C Acct: [id number] Dis Date: Status: ADM IN PHONE #: [phone] Exam Date: 01/07/2020 0712 FAX #: Reason: reassess SBO EXAMS: CPT: [id number] XR ABDOMEN 1 V 44658 Fluoro Time: DAP (Gym2): Air Kerma (mGy): <Continued> Technologist: Bakari De Leon RT(R)(CT) Trnscb Date/Time: 01/07/2020 (6467) [email or web address] Orig Print D/T: S: 01/07/2020 (0349) PAGE 2 Signed ReportBASIC METABOLIC PANEL 2020-01-07 [...] CA) 5.4 MG/DL 8.5-10.1 LL CBC W/AUTO [id number] 06:49:00 Test Item Value Reference Range Interpretation [...] = NO DIFF/SCN CRITERIA MDIFF) COMPREHENSIVE METABOLIC [id number] 06:10:00 Test Item Value Reference Range Interpretation [...] TOTAL (test code = ALKP) CBC W/AUTO [id number] 05:52:00 Test Item Value Reference Range Interpretation [...] DIFF/SCN CRITERIA MDIFF) - XR ABDOMEN 1 [id number] 01:30:00 Name: DORA JOSEPH Kamas : 1970 Age/S: 49 / M [address] [address] Unit #: [id number] Loc: [place] [address] Phys: Ted Coleman [employer]ER Acct: [id number] Dis Date: Status: ADM IN PHONE #: [phone] Exam Date: 01/06/2020 0100 FAX #: Reason: NG Tube Placement Verification EXAMS: CPT: [id number] XR ABDOMEN 1 V 99898 Fluoro Time: DAP (Gy m2): Air Kerma (mGy): Exam: KUB. Location: H 12 History: NG Tube Placement Verification Findings: A supine view of the abdomen demonstrates ga seous distention of the colon. A nasogastric tube is in place, the tip is in the stomach. No organomegaly, abnormal masses or calcifications are seen. No pneumatosis or free air is present. Impression:Satisfactory nasogastric tube placement. Electronically Signed by Renée Do on01/06/2020 at 0130 Reported and signed by: Teo Do M.D. CC: Mark Perea MD; Ted Coleman NP PAGE 1 Signed Report Name: [facility] : 1970 Age/S: 49 / M [address] [address] Unit #: [id number] Loc: [place] [address] Phys: Ted Coleman [employer] LO[employer]ER Acct: [id number] Dis Date: Status: ADM IN PHONE #: [phone] Exam Date: 01/06/2020 0100 FAX #: Reason: N G Tube Placement Verification EXAMS: CPT: [id number] XR ABDOMEN 1 V 98886 Fluoro Time: DAP (Gy m2): Air Kerma (mGy): <Continued> Technologist: Amberly Borrero RT(R) Trnscb Date/Time: 01/06/2020 (0130Orville Rey.FC Orig Print D/T: S: 01/06/2020 (0133) PAGE 2 Signed Report- CT ABD PELVIS W/O [id number] 19:42:00 [place]: St: REG -- Name: DORA JOSEPH [facility] : 1970 Age/S: 49/M [address] Unit:[id number] [facility] [place] [place] Phys: [place] [address] Acct: [id number] Dis Date: Status: REG ER PHONE #: [phone] Exam Date: 12/13/20191924 FAX #: [phone] Reason: pain EXAMS: CPT CODE: [id number] CT ABD PELVIS W/O CONT 17422 Examination: CT scan abdomen and pelvis without [...] ALMANZAR Trnscrd Dt/Tm: 12/13/2019 (1941) GarettVR5 Orig Parvin nt D/T: S: 12/13/2019 (5 PAGE 1 Signed ReportBASIC METABOLIC [id number] 18:49:00 Test Item Value Reference Range Interpretation [...] code = CA) 8.6 mg/dl 8.0-10.5 N [id number] 18:49:00 Test Item Value Reference Range Interpretation Comments LIPASE (test code = LIP) 97 Units/L 65.0-230.0 N CBC W/AUTO [id number] 18:38:00 Test Item Value Reference Range Interpretation [...] K/mm3 0.0-0.2 N - XR CHEST 1 [id number] 18:36:00 [place]: St: PRE -- Name: DORA JOSEPH [facility] : 1970 Age/S: 49/M [address] [place] [address] [facility] Unit #: [id number] Loc: [place], [place] Phys: [place] [address] Acct: [id number] Dis Date: Status: PRE ER PHONE #: [phone] Exam Date: 12/13/20191821 FAX #: [phone] Reason: SOB EXAMS: CPT CODE: [id number] XR CHEST 1 V 62084 Examination: One view chest x-ray Location code: [...] (1835) : By: GarettVR5 PAGE 1 SignedReport [place]: St: PRE --- Name: DORA JOSEPH [facility] : 1970 Age/S: 49/M [address] [place] [address] [facility] Unit #: [id number] Loc: [place], [place] Phys: [place] [address] Acct: [id number] Dis Date: Status: PRE ER PHONE #: [phone] Exam Date: 12/13/20191821 FAX #: [phone] Reason: SOB EXAMS: CPT CODE: [id number] XR CHEST 1 V 18191 (Continued) Orig Print D/T: S: 12/13/2019 (9189) PAGE 2 Signed ReportC W/PLT COUNT & AUTO [id number] 08:02:00 Test Item Value Reference Range Interpretation [...] Received comment: User comments: Slide comments:BASIC METABOLIC [id number] 07:34:00 Test Item Value Reference Range Interpretation [...] S NOT APPLICABLE FOR DIALYSIS PATIEN TS. [id number] 07:26:00 Test Item Value Reference Range Interpretation Comments PHOSPHORUS (BEAKER) (test code = 3.1 mg/dL 2.3-4.7 604) [id number] 07:26:00 Test Item Value Reference Range Interpretation Comments MAGNESIUM (BEAKER) (test code = 1.6 mg/dL 1.6-2.6 627) RAD, ABDOMEN/KUB, 1 VIEW [id number] 07:04:00Reason for exam:->ileusFINAL REPORT Abdomen , one [...] MDReport Verified Date/Time: 04/03/2019 07:04:46 Reading Location: [address] Ortho Consult Reading Room BASIC METABOLIC [id number] 06:47:00 Test Item Value Reference Range Interpretation [...] code = 413) URINALYSIS WITH MICROSCOPIC IF [id number] 22:01:00 Test Item Value Reference Range Interpretation [...] 463) SOURCE(BEAKER) (test code = 2795) URINALYSIS [id number] 22:01:00 Test Item Value Reference Range Interpretation Comments RBC UA (BEAKER) (test code = 519) 18 /HPF WBC UA (BEAKER) (test code = 520) 1 /HPF CALCIUM OXALATE CRYSTALS (BEAKER) Occasional (test code = 518) [id number] 05:49:00 Test Item Value Reference Range Interpretation Comments PHOSPHORUS (BEAKER) (test code = 2.5 mg/dL 2.3-4.7 604) [id number] 05:49:00 Test Item Value Reference Range Interpretation Comments MAGNESIUM (BEAKER) (test code = 1.7 mg/dL 1.6-2.6 627) BASIC METABOLIC [id number] 05:49:00 Test Item Value Reference Range Interpretation [...] (BEAKER) (test code = 413) BASIC METABOLIC [id number] 06:19:00 Test Item Value Reference Range Interpretation [...] S NOT APPLICABLE FOR DIALYSIS PATIEN TS. [id number] 06:10:00 Test Item Value Reference Range Interpretation Comments MAGNESIUM (BEAKER) 1.8 mg/dL 1.6-2.6 Specimen slightly (test code = 627) hemolyzed [id number] 06:10:00 Test Item Value Reference Range Interpretation [...] (BEAKER) (test code = 413) BASIC METABOLIC [id number] 04:57:00 Test Item Value Reference Range Interpretation [...] S NOT APPLICABLE FOR DIALYSIS PATIEN TS. [id number] 04:55:00 Test Item Value Reference Range Interpretation Comments PHOSPHORUS (BEAKER) (test code = 2.6 mg/dL 2.3-4.7 604) [id number] 04:55:00 Test Item Value Reference Range Interpretation Comments MAGNESIUM (BEAKER) (test code = 1.8 mg/dL 1.6-2.6 627) CT, [id number] 14:16:00FINAL REPORT TECHNIQUE: CT of the abdomen [...] Pope MDReport Verified Date/Time: 03/29/2019 14:16:01Reading Location: [facility] B1 C013Y CT Body Reading Room , ABDOMEN/KUB, 1 VIEW [id number] 10:23:00Reason for exam:->evaluate ileusFINAL REPORT Technique: Supine [...] Urbinaeport Verified Date/Time: 03/29/2019 10:23:29 Reading Location: [facility] Reading [facility]2019-03-29 08:10:00 Test Item Value Reference [...] WBC 0-0 (BEAKER) (test code = 413) [id number] 06:20:00 Test Item Value Reference Range Interpretation Comments PHOSPHORUS (BEAKER) (test code = 2.6 mg/dL 2.3-4.7 604) [id number] 06:20:00 Test Item Value Reference Range Interpretation Comments MAGNESIUM (BEAKER) (test code = 2.0 mg/dL 1.6-2.6 627) BASIC METABOLIC [id number] 06:20:00 Test Item Value Reference Range Interpretation [...] TS. RAD, ABDOMEN SERIES W/ UPRIGHT PA [id number] 22:18:00Reason for exam:- >eval ileusFINAL REPORT CLINICAL [...] Date/Time: 03/28/2019 22:18:50 RAD, ABDOMEN/KUB, 1 VIEW [id number] 11:23:00Reason for exam:->abdominal distensionShould this be performed [...] Ontiveros Verified Date/Time: 03/28/2019 11:23:34 Reading Location: [facility] Radiology Reading Room TISSUE [id number] 09:00:00Surgical Pathology Report Case: [id number] Authorizing Provider: Graciela Garrison MD Collected: 03/25/2019 1133 Ordering Location: [facility] Received: 03/25/2019 1527 [...] FOR MALIGNANCY Signing Pathologist Direct Phone Line: [phone] signed by Priyanka Celaya MD on 03/28/2019 at 9:00 [id number] and postop diagnosis: ileostomy statusA. End ileostomy; [...] nodes are not identified in the mesentery. Lumber Marker sections are submitted. Section code: A, artist representative section of each end of first mentioned segment of small bowel; A2, artist representative of first mentioned segment of small bowel mucosa; A3, area of hemorrhagic mesentery of second mentioned segment of mucosa; A4, artist representative of hemorrhagic mucosa at open end of second portion of small bowel; A5, artist representative of stapled margin from secondmentioned segment [...] 0.2 cm. No gross lesions are identified. Lumber Marker sections are submitted. Section code: B1, proximal margin en face and tip; B2, artist representative cross section. CG/pl Performed.[id number] 06:23:00 Test Item Value Reference Range Interpretation Comments PHOSPHORUS (BEAKER) (test code = 2.7 mg/dL 2.3-4.7 604) [id number] 06:23:00 Test Item Value Reference Range Interpretation Comments MAGNESIUM (BEAKER) (test code = 1.9 mg/dL 1.6-2.6 627) BASIC METABOLIC [id number] 06:23:00 Test Item Value Reference Range Interpretation [...] S NOT APPLICABLE FOR DIALYSIS PATIEN TS. [id number] 08:20:00 Test Item Value Reference Range Interpretation Comments PHOSPHORUS (BEAKER) (test code = 2.6 mg/dL 2.3-4.7 604) [id number] 08:20:00 Test Item Value Reference Range Interpretation Comments MAGNESIUM (BEAKER) (test code = 1.8 mg/dL 1.6-2.6 627) BASIC METABOLIC [id number] 08:20:00 Test Item Value Reference Range Interpretation [...] S NOT APPLICABLE FOR DIALYSIS PATIEN TS. [id number] 06:06:00 Test Item Value Reference Range Interpretation Comments PHOSPHORUS (BEAKER) (test code = 4.1 mg/dL 2.3-4.7 604) [id number] 06:06:00 Test Item Value Reference Range Interpretation Comments MAGNESIUM (BEAKER) (test code = 1.8 mg/dL 1.6-2.6 627) BASIC METABOLIC [id number] 06:06:00 Test Item Value Reference Range Interpretation [...] 697) EGFR (BEAKER) (test 76 mL/min/1.73 ESTIMA DANI GFR IS code = 1092) sq m NOT ACCURATE CREATININE CLEARANCE IN PREDICTING GLOMERULAR FILTRATION RATE . ESTIMATED GFR I S NOT APPLICABLE FOR DIALYSIS PATIEN TS. [id number] 06:03:00 Test Item Value Reference Range Interpretation Comments PHOSPHORUS (BEAKER) (test code = 4.2 mg/dL 2.3-4.7 604) [id number] 06:03:00 Test Item Value Reference Range Interpretation Comments MAGNESIUM (BEAKER) (test code = 2.0 mg/dL 1.6-2.6 627) BASIC METABOLIC [id number] 06:03:00 Test Item Value Reference Range Interpretation [...] WBC 0-0 (BEAKER) (test code = 413) [id number] 05:52:00 Test Item Value Reference Range Interpretation Comments PHOSPHORUS (BEAKER) (test code = 4.2 mg/dL 2.3-4.7 604) [id number] 05:52:00 Test Item Value Reference Range Interpretation Comments MAGNESIUM (BEAKER) (test code = 1.9 mg/dL 1.6-2.6 627) BASIC METABOLIC [id number] 05:52:00 Test Item Value Reference Range Interpretation [...] S NOT APPLICABLE FOR DIALYSIS PATIEN TS. [id number] 06:51:00 Test Item Value Reference Range Interpretation Comments PHOSPHORUS (BEAKER) (test code = 4.3 mg/dL 2.3-4.7 604) [id number] 06:51:00 Test Item Value Reference Range Interpretation Comments MAGNESIUM (BEAKER) (test code = 2.0 mg/dL 1.6-2.6 627) BASIC METABOLIC [id number] 06:51:00 Test Item Value Reference Range Interpretation [...] 0-0 (BEAKER) (test code = 413) TISSUE [id number] 11:50:00Surgical Pathology Report Case: [id number] Authorizing Provider: Mela Larson MD Collected: 03/18/2019 1827 Ordering Location: [facility] Received: 03/21/2019 0823 SERVICES Pathologist: Jordan Celaya MD Specimen: Small Bowel, NOS A. SMALL BOWEL, ILEOSTOMY PROLAPSE, TAKEDOWN: - ANASTOMOSIS SITE WITH ACTIVE CHRONIC INFLAMMATION AND FOCAL ISCHEMIC CHANGES - MUCOSAL RESECTION MARGINS, NEGATIVE FOR MALIGNANCY - ONE BENIGN LYMPH NODE (0/1) - NEGATIVE FOR DYSPLASIA OR MALIGNANCYSigning Pathologist Direct Phone Line: [phone] signed by Jordan Celaya MDon 03/22/2019 at 11:50 [id number] of ileostomyReceived in a container labeled "small [...] 0.5 to 1.2 cm in greatest dimension. Lumber Marker sections are submitted as follows: A1-A2, mucosal resection margin, en face; A3-A6, artist representative sections of the possible ostomy stump; A7-A11, serial artist representative sections from mucosal resection margin to the possible ostomy stump; A12, two lymph nodes. TH/plPerformed.[id number] 06:58:00 Test Item Value Reference Range Interpretation Comments PHOSPHORUS (BEAKER) (test code = 3.8 mg/dL 2.3-4.7 604) [id number] 06:58:00 Test Item Value Reference Range Interpretation Comments MAGNESIUM (BEAKER) (test code = 2.0 mg/dL 1.6-2.6 627) BASIC METABOLIC [id number] 06:58:00 Test Item Value Reference Range Interpretation [...] PATIEN TS. CBC W/PLT COUNT & AUTO [id number] 05:42:00 Test Item Value Reference Range Interpretation [...] 0-1 PERCENT (BEAKER) (test code = 2801) GA, [id number] 17:42:00Reason for exam:->evaluate for colon stricture as [...] Lopez Verified Date/Time: 03/21/2019 17:42:21 Reading Location: [address] Reading Room [id number] 03:58:00 Test Item Value Reference Range Interpretation Comments PHOSPHORUS (BEAKER) (test code = 3.0 mg/dL 2.3-4.7 604) [id number] 03:58:00 Test Item Value Reference Range Interpretation Comments MAGNESIUM (BEAKER) (test code = 2.0 mg/dL 1.6-2.6 627) BASIC METABOLIC [id number] 03:58:00 Test Item Value Reference Range Interpretation [...] PATIEN TS. CBC W/PLT COUNT & AUTO [id number] 03:20:00 Test Item Value Reference Range Interpretation [...] (BEAKER) (test code = 2801) BASIC METABOLIC [id number] 06:26:00 Test Item Value Reference Range Interpretation [...] S NOT APPLICABLE FOR DIALYSIS PATIEN TS. [id number] 06:05:00 Test Item Value Reference Range Interpretation Comments PHOSPHORUS (BEAKER) (test code = 2.2 mg/dL 2.3-4.7 L 604) [id number] 06:05:00 Test Item Value Reference Range Interpretation Comments MAGNESIUM (BEAKER) (test code = 2.0 mg/dL 1.6-2.6 627) CBC W/PLT COUNT & AUTO [id number] 05:25:00 Test Item Value Reference Range Interpretation [...] 0-1 PERCENT (BEAKER) (test code = 2801) [id number] 04:31:00 Test Item Value Reference Range Interpretation Comments PHOSPHORUS (BEAKER) (test code = 3.7 mg/dL 2.3-4.7 604) [id number] 04:31:00 Test Item Value Reference Range Interpretation Comments MAGNESIUM (BEAKER) (test code = 1.9 mg/dL 1.6-2.6 627) BASIC METABOLIC [id number] 04:31:00 Test Item Value Reference Range Interpretation [...] PATIEN TS. CBC W/PLT COUNT & AUTO [id number] 04:15:00 Test Item Value Reference Range Interpretation [...] 0-1 PERCENT (BEAKER) (test code = 2801) [id number] 06:41:00 Test Item Value Reference Range Interpretation Comments PHOSPHORUS (BEAKER) (test code = 3.1 mg/dL 2.3-4.7 604) [id number] 06:41:00 Test Item Value Reference Range Interpretation Comments MAGNESIUM (BEAKER) (test code = 1.9 mg/dL 1.6-2.6 627) BASIC METABOLIC [id number] 06:41:00 Test Item Value Reference Range Interpretation [...] PATIEN TS. CBC W/PLT COUNT & AUTO [id number] 06:36:00 Test Item Value Reference Range Interpretation [...] PERCENT (BEAKER) (test code = 2801) CT, [id number] 17:04:00No PO contrastFINAL REPORT ABDOMINAL AND PELVIS [...] MDReport Verified Date/Time: 03/17/2019 17:04:19 Reading Location: [address] Body Reading Room XR ABDOMEN 2 [id number] 09:03:45XR ABDOMEN 2 VIEWSLOCATION: [id number]: Colstomy ProlapseCOMPARISON: Chest radiograph 04/15/2017, CT of [...] Nonspecific, nonobstructive bowel gas pattern.XR CHEST 1 [id number] 11:32:15EXAM: CHEST ONE VIEWINDICATION: Chest painCOMPARISON: None availableTECHNIQUE: AP view of the chest.FINDINGS: The cardiomediastinal silhouette is normal. The lungs are clearbilaterally. No pneumothoraxor pleural effusion is identified. Theosseous structures are unremarkable.IMPRESSION: No acute cardiopulmonary process.LOCATION: Q01Udjcm Type and [id number] 21:21:00 Test Item Value Reference Range Interpretation Comments ABO type (test code = ABO) O Rh Type (test code = RH) Positive Comprehensive Metabolic [id number] 20:36:00 Test Item Value Reference Range Interpretation [...] the National Kidney Foundation,http ://nkd ep.nih.gov Alcohol/Ethanol, [id number] 20:36:00 Test Item Value Reference Range Interpretation Comments Alcohol, Ethyl <0.01 g/dL 0.00-0.01 N Intoxicated 0 .080 g/dL (test code = ETOH) or more Prothrombin [id number] 20:00:00 Test Item Value Reference Range Interpretation Comments PT (test code = PT) 10.10 seconds 9.78-13.35 N INR (test code = INR) 0.88 Ratio 0.6-1.2 N Partial Thromboplastin [id number] 20:00:00 Test Item Value Reference Range Interpretation Comments aPTT (test code = PTT) 31.50 seconds 24.39-37.25 N CBC with [id number] 19:50:00 Test Item Value Reference Range Interpretation [...] code = ALYMPH) 2.2 K/cumm 0.5-4.6 N Lee Abs (test code = AMONO) 0.4 K/cumm 0.0-1.2 N Eos Abs (test code = AEOS) 0.17 K/cumm 0.00-0.74 N Baso Abs (test code = ABASO) 0.0 K/cumm 0.00-0.21 N 91024& PELVIS W/O [id number] 17:36:28CT ABDOMEN AND PELVIS WITHOUT CONTRAST.CLINICAL HISTORY: [...]
[2022-05-22 00:40] VITALS: BP 111/76; O2SAT 100
== END 2022-05-19 15:47 | disposition home or self-care (01) ==
LOC: ER 13:44
DX: Z43.3 Encounter for attention to colostomy (principal); E86.9 Volume depletion, unspecified
CPT/HCPCS: 99284; J7030

== ENCOUNTER 2022-05-25 02:06 | Emergency (ER) | payer SELFPAY ==
--- OUTSIDE RECORDS SUMMARY | 2022-05-25 02:19 | XMS REPORT | Continuity of Care Document ---
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 CONSULT 2022-02-07 17:43:[address] [facility] ASSESSMENT BASIC METABOLIC PANEL 2022-02-07 17:18:00 Jyoti Carrillo [facility] LACTIC ACID 2022-02-07 14:04:00 Areli Arciniega [facility] CBC/DIFF 2022-02-07 14:03:00 Areli Arciniega Chiara [facility] BASIC METABOLIC PANEL 2022-02-07 14:03:00 Areli Arciniega [facility] LIVER PROFILE 2022-02-07 14:03:00 Areli Arciniega [facility] LIPASE 2022-02-07 14:03:00 Areli Arciniega [facility] alth MAGNESIUM 2022-02-07 14:03:00 Areli Arciniega [facility] PHOSPHORUS 2022-02-07 14:03:00 Areli Arciniega [facility] TROPONIN I 2022-02-07 14:03:00 Areli Arciniega [facility] CBC 2022-02-07 14:03:00 Areli Arciniega Maged Douglas alth 12 LEAD EKG 2022-01-21 15:46:10 Ori Goldberg [facility] CBC/DIFF 2022-01-21 04:11:00 LindseySteve [facility] MAGNESIUM 2022-01-21 04:11:00 LindseySteve P [facility] PHOSPHORUS 2022-01-21 04:11:00 Lindsey Steve P [facility] BASIC METABOLIC PANEL 2022-01-21 04:11:[address] [facility] CBC 2022-01-21 04:11:00 LindseySteve [facility] CBC/DIFF 2022-01-20 04:37:00 Lindsey Steve P [facility] MAGNESIUM 2022-01-20 04:37:00 LindseyNoeh P [facility] PHOSPHORUS 2022-01-20 04:37:00 Lindsey Steve P [facility] BASIC METABOLIC PANEL 2022-01-20 04:37:00 Steve Lucas [facility] CBC 2022-01-20 04:37:00 LindseySteve P [facility] MAGNESIUM 2022-01-19 18:09:00 Lindsey Steve P [facility] PHOSPHORUS 2022-01-19 18:09:00 Steve Lucas [facility] BASIC METABOLIC PANEL 2022-01-19 18:09:00 LindseySteve [facility] CORTISOL, TOTAL 2022-01-19 18:09:00 Karin Bassett URINALYSIS W/REFLEX TO 2022-01-19 17:22:00 LindseySteve [facility] URINE CULTURE URINALYSIS 2022-01-19 17:22:00 Steve Lucas [facility] URINE CULTURE COLLECTION 2022-01-19 17:22:00 Steve Lucas [facility] KIT COMPUTED TOMOGRAPHY 2022-01-19 13:29:00 Steve [facility] ABDOMEN AND PELVIS WITHOUT CONTRAST CBC/DIFF 2022-01-19 04:44:00 Steve Lucas [facility] CBC 2022-01-19 04:44:00 LindseySteve herrera [facility] DIFFERENTIAL, MANUAL (NO 2022-01-19 04:44:00 Steve Lucas [facility] Health MORPHOLOGY)-WA BASIC METABOLIC PANEL 2022-01-18 17:15:00 LindseySteve [facility] CBC/DIFF 2022-01-18 04:46:00 Steve Lucas [facility] MAGNESIUM 2022-01-18 04:46:00 LindseySteve [facility] PHOSPHORUS 2022-01-18 04:46:00 LindseySteve [facility] BASIC METABOLIC PANEL 2022-01-18 04:46:00 Ori [facility] CBC 2022-01-18 04:46:00 [facility]/AB COMBO ROUTINE 2022-01-18 04:46:00 Karin Bassett [facility] SCREENING ENTERIC PATHOGENS NUCLEIC 2022-01-18 03:25:00 Karin Bassett [facility] ACID TEST BASIC METABOLIC PANEL 2022-01-18 00:29:00 Ori Goldberg [facility] BASIC METABOLIC PANEL 2022-01-17 17:07:00 [facility] BASIC METABOLIC PANEL 2022-01-17 13:15:00 [facility] CALPROTECTIN FECAL 2022-01-17 12:38:00 Steve Lucas ealth FECAL LEUKOCYTES 2022-01-17 12:38:00 Steve Lucas Hea lt T-TRANSGLUTAMINASE IGA 2022-01-17 12:22:[address] [facility] BASIC METABOLIC PANEL 2022-01-17 08:51:00 Lindsey, Steve Esther [facility] BASIC METABOLIC PANEL 2022-01-17 04:47:00 Lindsey, Steve [facility] CBC/DIFF 2022-01-17 04:47:00 Steve Lucas [facility] MAGNESIUM 2022-01-17 04:47:00 Steve Lucas [facility] PHOSPHORUS 2022-01-17 04:47:00 Steve Lucas [facility] CBC 2022-01-17 04:47:00 Steve Lucas [facility] BASIC METABOLIC PANEL 2022-01-17 00:08:00 [facility]Steve [facility] 12 LEAD EKG 2022-01-16 21:23:25 Setve Lucas [facility] BASIC METABOLIC PANEL 2022-01-16 21:08:00 Lindsey, Steve Esther Alexi s [facility] XRAY CHEST 2 VIEWS 2022-01-16 19:56:00 Steve Lucas deborah IP CONSULT TO PHYSICAL 2022-01-16 19:17:17 Steve Lucas is Health THERAPY CONSULT CLINICAL CASE 2022-01-16 19:17:17 [facility] (RN/SW) SEQUENTIAL COMPRESSION 2022-01-16 19:17:17 Steve Lucas [facility] PUMP SODIUM, URINE, RANDOM 2022-01-16 16:00:00 Kevin Nieves [facility] CREATININE, URINE, RANDOM 2022-01-16 16:00:00 [facility] OSMOLALITY, URINE 2022-01-16 16:00:00 Kevin Nieves [facility] SARS-COV-2, FLU A/B, RSV 2022-01-16 15:20:[address] [facility] CORONAVIRUS, COVID-19, 2022-01-16 15:20:00 [facility]ieves [facility] OLENA FOLIC ACID 2022-01-16 14:13:00 Kevin Nieves ealth CREATININE POC 2022-01-16 13:55:00 Raymon Martin [facility]alt [facility] BMP POC 2022-01-16 13:46:00 [facility] CBC/DIFF 2022-01-16 12:12:00 Raymon [facility] CBC 2022-01-16 12:12:00 Raymon Martin Healt h BASIC METABOLIC PANEL 2022-01-16 12:11:00 Sadiq Vargas [facility] MAGNESIUM 2022-01-16 12:11:00 Sadiq [facility]argas [facility] VITAMIN B12 2022-01-16 12:11:00 Kevin Nieves ealt OSMOLALITY,SERUM 2022-01-16 12:11:00 Kevin Nieves [facility] INFUSION PUMP 2022-01-11 09:21:05 Helene Ring [facility] GLUCOSE POC 2022-01-11 07:54:00 Helene Ring [facility] BASIC METABOLIC PANEL 2022-01-11 04:07:00 Merissa Richards [facility] MAGNESIUM 2022-01-11 04:07:00 Merissa Richards [facility] PHOSPHORUS 2022-01-11 04:07:00 [facility]issa [facility] CBC/DIFF 2022-01-11 04:06:00 Merissa [facility] IRON PROFILE 2022-01-11 04:06:00 Merissa [facility] FOLIC ACID 2022-01-11 04:06:00 Merissa [facility] CBC 2022-01-11 04:06:00 Merissa Richards [facility] GLUCOSE POC 2022-01-10 18:16:00 Helene Ring URINALYSIS 2022-01-10 16:10:00 Merissa Richards [facility] URINALYSIS 2022-01-10 16:10:00 FerchoMerissa [facility] SARS-COV-2, FLU A/B, RSV 2022-01-10 15:54:00 Fercho Merissa Q [facility] CORONAVIRUS, COVID-19, 2022-01-10 15:54:00 Antoine Hester [facility] OLENA BASIC METABOLIC PANEL 2022-01-10 15:54:00 Merissa Richards [facility] VITAMIN B12 2022-01-10 15:54:00 Fercho Merissa Mims [facility] VBG POC 2022-01-10 11:14:00 Dia Jewell [facility] CBC/DIFF 2022-01-10 11:13:00 Antoine Hester [facility] BASIC METABOLIC PANEL 2022-01-10 11:13:00 Antoine Hester [facility] LACTIC ACID 2022-01-10 11:13:00 Antoine Hester [facility] CBC 2022-01-10 11:13:00 Antoine Hester [facility] LIVER PROFILE 2022-01-10 11:13:00 Fercho Merissa Mims [facility] CK, TOTAL 2022-01-10 11:13:00 Fercho Merissa Mims [facility] FERRITIN 2022-01-10 11:13:00 Fercho Merissa Mims [facility] CREATINE KINASE MB (CKMB) 2022-01-10 11:13:00 Fercho Merissa Mims [facility] XRAY CHEST 2 VIEWS 2022-01-08 21:50:14 Tanja Sebastian [facility] CBC/DIFF 2022-01-08 21:27:00 Tanja Sebastian [facility] BASIC METABOLIC PANEL 2022-01-08 21:27:00 Tanja Sebastian [facility] LIVER PROFILE 2022-01-08 21:27:00 Tanja Sebastian [facility] CK, TOTAL 2022-01-08 21:27:00 Tanja Sebastian [facility] TROPONIN I 2022-01-08 21:27:00 Tanja Sebastian [facility] CBC 2022-01-08 21:27:00 Tanja Sebastian [facility] CREATINE KINASE MB (CKMB) 2022-01-08 21:27:00 Tanja Sebastian [facility] 12 LEAD EKG 2022-01-08 20:59:56 SebastianTanja [facility] [id number] 2020-01-09 00:00:00 DARSU.01 [facility] Plan of Care Planned Activity Planned Date Details Comments Source Future Scheduled 2029-03-23 Screening for malignant [facility] Test 00:00:00 neoplasm of colon [facility] (procedure) [code = 647046184] Future Scheduled 2029-03-23 Screening for malignant [facility] Test 00:00:00 neoplasm of colon [facility] Ce [facility] (procedure) [code = 427380354] Future Scheduled 2029-03-23 Screening for malignant [facility] Test 00:00:00 neoplasm of colon Medical Ce [facility]ter (procedure) [code = 087955768] Future Scheduled 2029-03-23 Screening for malignant [facility] Test 00:00:00 neoplasm of colon Medical Ce [facility]ter (procedure) [code = 025821404] Future Scheduled 2029-03-23 Screening for malignant [facility] Test 00:00:00 neoplasm of colon Medical Ce [facility] (procedure) [code = 193617212] Future Scheduled 2029-03-23 Screening for malignant [facility] Test 00:00:00 neoplasm of colon Medical Ce [facility]ter (procedure) [code = 024959232] Future Scheduled 2029-03-23 Screening for malignant [facility] Test 00:00:00 neoplasm of colon Medical Ce nter (procedure) [code = 904527221] Future Scheduled 2029-03-23 Screening for malignant [facility] Test 00:00:00 neoplasm of colon Medical Ce nter (procedure) [code = 606044673] Future Scheduled 2029-03-23 Screening for malignant [facility] Test 00:00:00 neoplasm of colon Medical Ce [facility]ter (procedure) [code = 130400356] Future Scheduled 2029-03-23 Screening for malignant [facility] Test 00:00:00 neoplasm of colon Medical Ce [facility]ter (procedure) [code = 691752668] Future Scheduled 2029-03-23 Screening for malignant [facility] Test 00:00:00 neoplasm of colon Medical Ce nter (procedure) [code = 398311954] Future Scheduled 2029-03-23 Screening for malignant [facility] Test 00:00:00 neoplasm of colon Medical Ce nter (procedure) [code = 643388364] Future Scheduled 2029-03-23 Screening for malignant [facility] Test 00:00:00 neoplasm of colon Medical Ce nter (procedure) [code = 113017531] Future Scheduled 2029-03-23 Screening for malignant [facility] Test 00:00:00 neoplasm of colon Medical Ce nter (procedure) [code = 554217134] Future Scheduled 2029-03-23 Screening for malignant [facility] Test 00:00:00 neoplasm of colon Medical Ce nter (procedure) [code = 706917871] Future Scheduled 2029-03-23 Screening for malignant [facility] Test 00:00:00 neoplasm of colon Medical Ce nter (procedure) [code = 608511235] Future Scheduled 2029-03-23 Screening for malignant [facility] Test 00:00:00 neoplasm of colon Medical Ce nter (procedure) [code = 625150098] Future Scheduled 2029-03-23 Screening for malignant [facility] Test 00:00:00 neoplasm of colon Medical Ce [facility]ter (procedure) [code = 131499628] Future Scheduled 2029-03-23 Screening for malignant [facility] Test 00:00:00 neoplasm of colon Medical Ce [facility]ter (procedure) [code = 432189854] Future Scheduled 2022-05-24 IMM Influenza Seasonal H [...] 00:00:00 neoplasm of colon (procedure) [code = 881911267] Future Scheduled 2020-02-14 SHINGLES VACCINES (1 of [...] 00:00:00 neoplasm of colon (procedure) [code = 648004358] Future Scheduled 2020-02-14 [facility] 00:00:00 neoplasm of colon (procedure) [code = 992611808] Future Scheduled 2020-02-14 Screening for malignant [facility] Test 00:00:00 neoplasm of colon (procedure) [code = 158764443] Future Scheduled 2020-02-14 Screening for malignant [facility] Test 00:00:00 neoplasm of colon (procedure) [code = 708765474] Future Scheduled 2020-02-14 Screening for malignant [facility] Test 00:00:00 neoplasm of colon (procedure) [code = 124394329] Future Scheduled 2020-02-14 Screening for malignant [facility] Test 00:00:00 neoplasm of colon (procedure) [code = 459446199] Future Scheduled 2005 Lipid panel (procedure) [facility] Test 00:00:00 [code = 93815972] Medical Ce nter Future Scheduled 2005 Lipid panel (procedure) [facility] Test 00:00:00 [code = 31967031] Medical Ce nter Future Scheduled 2005 Lipid panel (procedure) [facility] Test 00:00:00 [code = 18483036] Medical Ce nter Future Scheduled 2005 Lipid panel (procedure) [facility] Test 00:00:00 [code = 24916029] Medical Ce nter Future Scheduled 2005 Lipid panel (procedure) [facility] Test 00:00:00 [code = 32137127] Medical Ce nter Future Scheduled 2005 Lipid panel (procedure) [facility] Test 00:00:00 [code = 47423075] Medical Ce nter Future Scheduled 2005 Lipid panel (procedure) [facility] Test 00:00:00 [code = 64598427] Medical Ce nter Future Scheduled 2005 Lipid panel (procedure) [facility] Test 00:00:00 [code = 50552483] Medical Ce nter Future Scheduled 2005 Lipid panel (procedure) [facility] Test 00:00:00 [code = 90204128] Medical Ce nter Future Scheduled 2005 Lipid panel (procedure) [facility] Test 00:00:00 [code = 15201315] Medical Ce nter Future Scheduled 1989 DTAP/TDAP/TD [...] Test 00:00:00 [code = CT Colonography Medi [facility] (combo)] Future Scheduled 1970 Screening for malignant [facility] Test 00:00:00 neoplasm of colon Medical Ce nter (procedure) [code = 995747622] Future Scheduled 1970 Screening for malignant [facility] Test 00:00:00 neoplasm of colon Medical Ce nter (procedure) [code = 635098727] Future Scheduled 1970 Sigmoidoscopy [facility]] [facility] Cent[facility] r Future Scheduled 1970 Fluoride Varnish [code [facility] 00:00:00 = Fluoride Varnish] Future Scheduled 1970 Screening for malignant [facility] Test 00:00:00 neoplasm of colon Medical Ce nter (procedure) [code = 671838780] Future Scheduled 1970 Screening for malignant [facility] Test 00:00:00 neoplasm of colon Medical Ce nter (procedure) [code = 282338590] Future Scheduled 1970 Sigmoidoscopy [facility]code [facility] S[facility]oscopy] Medical Cent[facility] r Future Scheduled 1970 CT Colonography (combo) [facility] 00:00:00 [code = CT Colonography Medi [facility] (combo)] Future Scheduled 1970 Screening for malignant [facility] Test 00:00:00 neoplasm of colon Medical Ce nter (procedure) [code = 453797963] Future Scheduled 1970 Screening for malignant [facility] Test 00:00:00 neoplasm of colon Medical Ce nter (procedure) [code = 355547169] Future Scheduled 1970 Sigmoidoscopy [facility]code [facility] S[facility]oidoscopy] Medical Cente r Future Scheduled 1970 CT Colonography (combo) [facility] 00:00:00 [code = CT Colonography [facility]i [facility] (combo)] Future Scheduled 1970 Screening for malignant [facility] Test 00:00:00 neoplasm of colon Medical Ce nter (procedure) [code = 229616562] Future Scheduled 1970 Screening for malignant [facility] Test 00:00:00 neoplasm of colon Medical Ce nter (procedure) [code = 557085238] Future Scheduled 1970 Sigmoidoscopy [facility]code [facility] S[facility]oscopy] Medical Cente r Future Scheduled 1970 CT Colonography (combo) [facility] 00:00:00 [code = CT Colonography [facility]i [facility] (combo)] Future Scheduled 1970 Screening for malignant [facility] Test 00:00:00 neoplasm of colon Medical Ce nter (procedure) [code = 030429452] Future Scheduled 1970 Screening for malignant [facility] Test 00:00:00 neoplasm of colon Medical Ce nter (procedure) [code = 768062809] Future Scheduled 1970 Sigmoidoscopy [facility]code [facility] S[facility]oscopy] Medical Cente r Future Scheduled 1970 CT Colonography (combo) [facility] 00:00:00 [code = CT Colonography [facility]i [facility] (combo)] Future Scheduled 1970 Screening for malignant [facility] Test 00:00:00 neoplasm of colon Medical Ce nter (procedure) [code = 492055131] Future Scheduled 1970 Screening for malignant [facility] Test 00:00:00 neoplasm of colon Medical Ce nter (procedure) [code = 783891982] Future Scheduled 1970 Sigmoidoscopy [facility]code [facility] S[facility]oscopy] Medical Angele r Future Scheduled 1970 CT Colonography (combo) [facility] Test 00:00:00 [code = CT Colonography Medi [facility] (combo)] Future Scheduled 1970 Screening for malignant [facility] Test 00:00:00 neoplasm of colon Medical Ce nter (procedure) [code = 625270791] Future Scheduled 1970 Screening for malignant [facility] Test 00:00:00 neoplasm of colon Medical Ce nter (procedure) [code = 617525587] Future Scheduled 1970 Sigmoidoscopy [facility]code [facility] S[facility]oscopy] Medical Angele r Future Scheduled 1970 CT Colonography (combo) [facility] Test 00:00:00 [code = CT Colonography Medi [facility] (combo)] Future Scheduled 1970 Screening for malignant [facility] Test 00:00:00 neoplasm of colon Medical Ce nter (procedure) [code = 278541914] Future Scheduled 1970 Screening for malignant [facility] Test 00:00:00 neoplasm of colon Medical Ce nter (procedure) [code = 744019806] Future Scheduled 1970 Sigmoidoscopy [facility]code [facility] S[facility]oscopy] Medical Angele r Future Scheduled 1970 CT Colonography (combo) [facility] 00:00:00 [code = CT Colonography [facility]i [facility] (combo)] Future Scheduled 1970 Screening for malignant [facility] Test 00:00:00 neoplasm of colon Medical Ce nter (procedure) [code = 247449385] Future Scheduled 1970 Screening for malignant [facility] Test 00:00:00 neoplasm of colon Medical Ce nter (procedure) [code = 260218657] Future Scheduled 1970 Sigmoidoscopy [code = CH [...] Date/Time Type Type Clinicians Facility Department ID 2020-02-23 Inpatient HCAPM LENNY [id number] [facility] 18:42:00 89 [facility] 2020-02-17 Inpatient EM Avtar, HCAPM MAS [id number] [facility] 00:22:00 Oladipo 75 [facility] 2020-01-05 Inpatient UR Perea, HCAPM MEDI.01 [id number] [facility] 20:23:00 Mark 40 [facility] 2019-12-13 Inpatient HCAMN JULIA [id number] [facility] 17:52:00 47 [facility] 2022-03-29 2022-03-29 Emergency EM White, HCACL AERS [id number] [facility] 14:26:00 16:45:00 Steve 28 [facility] 2022-03-29 2022-03-29 Emergency EM White, HCACL HCACL [id number] [facility] 14:26:00 16:45:00 Steve Luu06 [facility] 2022-03-25 2022-03-26 Inpatient E RICHARD [facility] [id number] [facility] 13:38:00 10:16:00 , YESSI 2022-03-15 2022-03-18 Emergency E RADHA [facility] [id number] [facility] 13:36:00 18:59:00 NELSON 2022-03-13 2022-03-13 Emergency [facility] [id number] [facility] 15:33:00 20:25:00 Health 2022-03-13 2022-03-13 Emergency [facility] [id number] [facility] 15:33:00 20:25:00 [facility] 2022-03-13 2022-03-13 Outpatient SHARMILA CARDENAS [facility] [id number] [facility] 00:00:00 00:00:00 [facility] 2022-03-06 2022-03-09 [facility] [id number] [facility] 12:16:00 12:55:00 2022-03-06 2022-03-09 [facility] [id number] [address] 12:16:00 12:55:00 Encounter Dee Dee Montalvo Fang-Ying M edical Heinen, Allison P. [facility]ly [facility] 2022-03-06 2022-03-09 [facility] [id number] 12:16:00 12:55:00 Encounter Dee Dee Montalvo Fang-Ying M edical Heinen, Allison P. [facility] 2022-03-06 2022-03-06 Outpatient [facility] [id number] [address] [place] [address] 00:00:00 23:59:00 Lorna Medicin e 2022-03-06 2022-03-06 Orders [facility] [id number] 00:00:00 00:00:00 Only [facility] 2022-03-06 2022-03-06 Travel [facility] [id number] [facility] 00:[facility] 00:00:00 [facility] 2022-03-06 2022-03-06 Orders [facility] [id number] 00:00[facility]00 00[facility]00[facility] 2022-03-06 2022-03-06 Travel [facility] [id number] [facility] 00:[facility] 00:00:00 [facility] 2022-02-18 2022-02-20 Emergency Teddy Carbajal [facility] [id number] [place] 13:58:00 11:55:[address] [facility] Jackie Rufino Blake Kobe 2022-02-18 2022-02-20 Emergency Teddy Carbajal [facility] [id number] [place] 13:58:00 11:55:00 [facility] 2022-02-18 2022-02-18 [facility] [id number] [place] 15:19:05 15:23:18 [facility] 2022-02-18 2022-02-18 [facility] [id number] [place] 13:58:00 13:58:00 [facility] 2022-02-18 2022-02-18 Outpatient DENIZ [facility] [id number] [place] 00:00:00 00:00:00 , OSCAR Daniels 2022-02-07 2022-02-11 [facility] [id number] [place] 13:40:00 13:22:00 Encounter Antonieta [facility] 2022-02-07 2022-02-11 [facility] [id number] [place] 13:40:00 13:22:00 Encounter Antonieta [facility] 2022-02-07 2022-02-07 Outpatient 1 MEGHAN ISLAS [facility] [id number] [place] 13:40:00 13:40:00 [facility] 2022-01-30 2022-01-30 Emergency SEAN Pacheco [facility] [id number] [facility] 17:02:00 18:29:00 [facility]ain 53 [facility] [facility] 2022-01-30 2022-01-30 Emergency SEAN Tara [facility] [id number] [facility] 17:02:00 18:29:00 Dwain [id number] [facility] 2022-01-22 2022-01-22 Emergency [facility] [id number] [place] 17:24:00 20:39:00 [facility] 2022-01-22 2022-01-22 Emergency [facility] [id number] [place] 17:24:00 20:39:00 [facility] 2022-01-16 2022-01-21 Emergency Raymon Martin [facility] [id number] [place] 11:04:00 18:08:00 [facility] 2022-01-16 2022-01-21 Emergency Raymon Martin Feliberto [facility] [id number] [place] 11:04:00 18:08:00 [facility] 2022-01-19 2022-01-19 Outpatient [facility] [id number] [place] 12:34:08 13:29:31 [facility] 2022-01-16 2022-01-16 Outpatient [facility] [id number] [place] 19:42:28 20:01:28 [facility] 2022-01-16 2022-01-16 [facility] [id number] [place] 11:04:00 11:04:00 KARIN Daniels 2022-01-10 2022-01-11 [facility] [id number] [place] 10:58:00 11:20:00 [facility] 2022-[facility]-10 2022-01-11 Emergency Bert Reed [facility] [id number] [place] 10:58:00 11:20:00 [facility]22-[facility]-10 2022-01-10 Outpatient 1 [facility] [id number] [place] 10:58:00 10:58:00 [facility] 2022-01-08 2022-01-09 Emergency [facility] [id number] [place] 17:57:00 02:50:00 [facility] 2022-01-08 2022-01-09 Emergency [facility] [id number] [place] 17:57:00 02:50:00 [facility] 2022-01-08 2022-01-08 Emergency [facility] [id number] [place] 21:40:34 21:50:19 [facility] 2021-09-23 2021-09-23 Emergency Raffaele Pitts [facility] AERS [id number] [facility] 19:35:00 21:10:00 74 [facility] 2021-09-13 2021-09-13 Emergency EM Raffaele Levi [facility] AERS [id number] [facility] 14:57:00 16:37:00 06 [facility] 2021-07-27 2021-07-27 Emergency EM Kateryna, [facility]AMN JULIA [id number] [facility] 10:15:00 12:36:00 Tarek 17 [facility] 2021-07-22 2021-07-22 Emergency EM Marcelina, [facility] AERS [id number] [facility] 04:25:00 08:20:00 Tarrell 74 [facility] 2021-06-27 2021-06-27 Emergency EM White, [facility] AERS [id number] [facility] 15:31:00 17:37:00 Steve 17 [facility] 2021-04-28 2021-05-01 Inpatient EM Aisha, [facility] [id number] [facility] 21:05:00 14:18:00 Marcello 03 [facility] 2020-02-24 2020-02-24 Outpatient Eliazar, [facility] LABO [id number] [facility] 07:51:00 07:51:00 Mark 96 [facility] 2020-02-18 2020-02-18 Outpatient Avtar, [facility] LABO [id number] [facility] 00:26:00 00:26:00 Oladipo 05 [facility] 2020-01-05 2020-01-05 Outpatient Eliazar [facility] [id number] [facility] 23:52:00 23:52:00 Mark 24 [facility] 2017-11-02 2017-11-02 Emergency E [facility] [id number] 08:33:00 08:33:00 [facility] 2017-08-05 2017-08-05 Outpatient [facility] [id number] [place] 00:00:00 00:00:00 Health 2017-07-28 2017-07-28 Outpatient [facility] [id number] [place] 00:00:00 00:00:00 [facility] 2017-06-24 2017-06-24 Outpatient [facility] [id number] [place] 00:00:00 00:00:00 [facility] 2017-06-22 2017-06-22 Emergency [facility] [id number] [place] 21:37:29 21:37:29 Health 2017-06-22 2017-06-22 Emergency [facility] [id number] [place] 21:06:00 21:06:00 Health 2017-06-22 2017-06-22 Outpatient [facility] [id number] [place] 10:02:31 10:02:31 Health 2017-06-09 2017-06-09 Outpatient [facility] [id number] [place] 00:00:00 00:00:00 [facility] 2017-06-09 2017-06-09 Outpatient [facility] [id number] [place] 00:00:00 00:00:00 [facility] 2017-05-08 2017-05-08 Emergency [facility] [id number] [place] 01:04:44 01:04:44 [facility] 2017-05-05 2017-05-05 Emergency E [facility] [id number] 08:11:00 08:11:00 [facility] 2017-04-15 2017-04-15 Emergency E [facility] [id number] 09:53:00 09:53:00 [facility] 2017-04-14 2017-04-14 Outpatient [facility] [id number] [place] 13:31:02 13:31:02 Health Results Test Description Test Time Test Comments Results Result Comments Source CBC W/AUTO DIFF 2022-03-30 00:06:00 Test Item Value Reference Range Interpretation Comme nts WHITE BLOOD CELL (test code = WBC) [...] 27.0-31.0 N MEAN CELL HGB CONCETRATION (test code = MCHC) 35.3 GM/DL 33.0-37. 0 N RED CELL DISTRIBUTION WIDTH CV (test code = RDW) 16.9 % 11.5- 14.5 H PLATELET COUNT (test code = PLT) 363 K/mm3 150-400 N MEAN PLATELET VOLUME (test code = MPV) 9.6 FL 8.8-13.1 N NEUTROPHIL % (test code = NT%) 60.0 % 40.0-76.0 N LYMPHOCYTE % (test code = LY%) 29.9 % 15.0-40.0 N MIXED % (test code = MX%) 10.1 % 3.0-15.0 N NEUTROPHIL # (test code = NT#) 3.1 K/uL 1.8-7.6 N LYMPHOCYTE # (test code = LY#) 1.6 K/uL 1.0-3.8 N MIXED # (test code = MX#) 0.5 k/mm3 0.1-0.8 N TROPONIN-I [id number] 15:07:00 Test Item Value Reference Range Interpretation Comments TROPONIN-I RAPID 0.00 ng/mL 0.00-0.08 N Performed b y certified (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 [...] onin levels characteristic of SD. BASIC METABOLIC [id number] 14:56:00 Test Item Value Reference Range Interpretation [...] MG/DL 70-110 N - XR CHEST 1 [id number] 00:00:00 [facility] MARIA ISABEL JOSEPH : 1970 Sex: M FAX: Steve Urias MD [phone] [place]: [place] St: REG Name: MARIA ISABEL JOSEPH FSED : 1970 Age/S: 52/M [address] [facility] Unit #: [id number] [place]: [place] [address] Phys: Steve Urias MD Acct: [id number] Dis Date: Status: REG ER PHONE #: Exam Date: 03/29/2022 1501 FAX #: Reason: Weakness EXAMS: CPT CODE: [id number] XR CHEST 1 V 58654 PROCEDURE INFORMATION: Exam: XR Chest Exam date [...] and signed by: Barrett Bailey M.D. CC: Steve Urias MD Technologist: RT Simone(R)(CT) Trnscrd Date/Time/By: 03/29/2022 (1530) : By: GarettTTV Orig Print D/T: S: 03/29/2022 (0631) PAGE 1 Signed ReportHEPATIC FUNCTION [id number] 06:45:03 Test Item Value Reference Range Interpretation [...] (test code = 13 U/L 6-55 347) Check Writing Machine Operator KEN - ERWIN WBASIC METABOLIC [id number] 06:45:02 Test Item Value Reference Range Interpretation [...] S NOT APPLICABLE FOR DIALYSIS PATIEN TS. Check Writing Machine Operator ID - ERWIN WCBC W/PLT COUNT & AUTO [id number] 06:26:54 Test Item Value Reference Range Interpretation [...] (BEAKER) (test code = 2801) U/S, RENAL, [id number] 19:23:00Reason for exam:->acute kidney [facility] 1970 Sex: [...] SARS-Co V-2 (test code = target nucleic 05674-5) acids are not detected in thi s [...] rapid, real-kyle e RT-PCR test intended for e qualitative [...] revoked sooner. Fact Sheet for Healthcare Providers: https://www.ContentWatch/Documents/Xp ert%20Xpress%20SAR S%20CoV-2/Fact%20S heets/302-3802%20S ARS-COV-2%20HEALTH CARE%20PROVIDERS%2 0FACT%20SHEET.pdf Fact Sheet for Healthcare Patients: https://www.ContentWatch/Documents/Xp ert%20Xpress%20SAR S%20CoV-2/Fact%20S heets/302-3801%20S ARS-COV-2%20PATIEN T%20FACT%20SHEET.p df Lab Interpretation Normal (test code = 90018-2) [facility]2022-03-06 19:17:07 Test Item Value Reference Interpretation Comments Range SARS-COV2/RT-PCR Negative Negative The SARS-Co V-2 (test code = target nucleic 66423-6) acids are not detected in thi s [...] revoked sooner. Fact Sheet for Healthcare Providers: https://www.ContentWatch/Documents/Xp ert%20Xpress%20SAR S%20CoV-2/Fact%20S heets/302-3802%20S ARS-COV-2%20HEALTH CARE%20PROVIDERS%2 0FACT%20SHEET.pdf Fact Sheet for Healthcare Patients: https://www.ContentWatch/Documents/Xp ert%20Xpress%20SAR S%20CoV-2/Fact%20S heets/302-3801%20S ARS-COV-2%20PATIEN T%20FACT%20SHEET.p df Lab Interpretation Normal (test code = 96280-9) [facility]2022-03-06 19:17:07 Test Item Value Reference Interpretation Comments Range SARS-COV2/RT-PCR Negative Negative The SARS-Co V-2 (test code = target nucleic 06121-6) acids are not detected in thi s [...] om SARS-CoV-2 in a nasopharyngeal swab specimen [facility] from individual s suspected of COVID-19 [...] revoked sooner. Fact Sheet for Healthcare Providers: https://www.ContentWatch/Documents/Xp ert%20Xpress%20SAR S%20CoV-2/Fact%20S heets/302-3802%20S ARS-COV-2%20HEALTH CARE%20PROVIDERS%2 0FACT%20SHEET.pdf Fact Sheet for Healthcare Patients: https://www.ContentWatch/Documents/Xp ert%20Xpress%20SAR S%20CoV-2/Fact%20S heets/302-3801%20S ARS-COV-2%20PATIEN T%20FACT%20SHEET.p df Lab Interpretation Normal (test code = 89511-4) [facility]2022-03-06 19:17:07 Test Item Value Reference Interpretation Comments Range SARS-COV2/RT-PCR Negative Negative The SARS-Co V-2 (test code = target nucleic 65460-1) acids are not detected in thi s [...] revoked sooner. Fact Sheet for Healthcare Providers: https://www.ContentWatch/Documents/Xp ert%20Xpress%20SAR S%20CoV-2/Fact%20S heets/302-3802%20S ARS-COV-2%20HEALTH CARE%20PROVIDERS%2 0FACT%20SHEET.pdf Fact Sheet for Healthcare Patients: https://www.ContentWatch/Documents/Xp ert%20Xpress%20SAR S%20CoV-2/Fact%20S heets/302-3801%20S ARS-COV-2%20PATIEN T%20FACT%20SHEET.p df Lab Interpretation Normal (test code = 24680-4) [facility]2022-03-06 19:17:07 Test Item Value Reference Interpretation Comments Range SARS-COV2/RT-PCR Negative Negative The SARS-Co V-2 (test code = target nucleic 01096-6) acids are not detected in thi s [...] revoked sooner. Fact Sheet for Healthcare Providers: https://www.ContentWatch/Documents/Xp ert%20Xpress%20SAR S%20CoV-2/Fact%20S heets/302-3802%20S ARS-COV-2%20HEALTH CARE%20PROVIDERS%2 0FACT%20SHEET.pdf Fact Sheet for Healthcare Patients: https://wwwTelnexus/Documents/Xp ert%20Xpress%20SAR S%20CoV-2/Fact%20S heets/302-3801%20S ARS-COV-2%20PATIEN T%20FACT%20SHEET.p df Lab Interpretation Normal (test code = 39554-5) [facility]2022-03-06 19:17:07 Test Item Value Reference Interpretation Comments Range SARS-COV2/RT-PCR Negative Negative The SARS-Co V-2 (test code = target nucleic 04731-0) acids are not detected in thi s [...] revoked sooner. Fact Sheet for Healthcare Providers: https://www.ContentWatch/Documents/Xp ert%20Xpress%20SAR S%20CoV-2/Fact%20S heets/302-3802%20S ARS-COV-2%20HEALTH CARE%20PROVIDERS%2 0FACT%20SHEET.pdf Fact Sheet for Healthcare Patients: https://wwwTelnexus/Documents/Xp ert%20Xpress%20SAR S%20CoV-2/Fact%20S heets/302-3801%20S ARS-COV-2%20PATIEN T%20FACT%20SHEET.p df Lab Interpretation Normal (test code = 74799-0) [facility]2022-03-06 19:17:07 Test Item Value Reference Interpretation Comments Range SARS-COV2/RT-PCR Negative Negative The SARS-Co V-2 (test code = target nucleic 71001-8) acids are not detected in thi s [...] revoked sooner. Fact Sheet for Healthcare Providers: https://www.ContentWatch/Documents/Xp ert%20Xpress%20SAR S%20CoV-2/Fact%20S heets/302-3802%20S ARS-COV-2%20HEALTH CARE%20PROVIDERS%2 0FACT%20SHEET.pdf Fact Sheet for Healthcare Patients: https://www.ContentWatch/Documents/Xp ert%20Xpress%20SAR S%20CoV-2/Fact%20S heets/302-3801%20S ARS-COV-2%20PATIEN T%20FACT%20SHEET.p df Lab Interpretation Normal (test code = 01671-1) [facility]2022-03-06 19:17:07 Test Item Value Reference Interpretation Comments Range SARS-COV2/RT-PCR Negative Negative The SARS-Co V-2 (test code = target nucleic 13291-2) acids are not detected in thi s [...] revoked sooner. Fact Sheet for Healthcare Providers: https://www.ContentWatch/Documents/Xp ert%20Xpress%20SAR S%20CoV-2/Fact%20S heets/302-3802%20S ARS-COV-2%20HEALTH CARE%20PROVIDERS%2 0FACT%20SHEET.pdf Fact Sheet for Healthcare Patients: https://www.ContentWatch/Documents/Xp ert%20Xpress%20SAR S%20CoV-2/Fact%20S heets/302-3801%20S ARS-COV-2%20PATIEN T%20FACT%20SHEET.p df Lab Interpretation Normal (test code = 28811-6) [facility]2022-03-06 19:17:07 Test Item Value Reference Interpretation Comments Range SARS-COV2/RT-PCR Negative Negative The SARS-Co V-2 (test code = target nucleic 50052-5) acids are not detected in thi s [...] revoked sooner. Fact Sheet for Healthcare Providers: https://www.ContentWatch/Documents/Xp ert%20Xpress%20SAR S%20CoV-2/Fact%20S heets/302-3802%20S ARS-COV-2%20HEALTH CARE%20PROVIDERS%2 0FACT%20SHEET.pdf Fact Sheet for Healthcare Patients: https://www.ContentWatch/Documents/Xp ert%20Xpress%20SAR S%20CoV-2/Fact%20S heets/302-3801%20S ARS-COV-2%20PATIEN T%20FACT%20SHEET.p df Lab Interpretation Normal (test code = 90901-3) [facility])2022-03-06 19:17:07 Test Item Value Reference Range Interpretation Comments SARS-COV2/RT-PCR Negative Negative The SARS-Co V-2 target (test code = nucleic acids a re not 9794056) detected in thi s specimen. Negative result [...] revoked sooner. Fact Sheet for Healthcare Providers: https://www.[employer] m/Documents/Xpert%20Xpress%20SARS%20CoV-2/Fact%20Sheets/302-3802%79IDKZ-FEM-0%20 HEALTHCARE%20PROVIDERS%20FACT%20SHEET.pdf Fact Sheet for Healthcare Patients: https://www.[employer]/Documents/Xpert%20Xp ress%20SARS%20CoV-2/Fact%20Sheets/302-3801%32EBNN-SDP-6%20PATIENT%20FACT%20SHEET .pdfCREATINE KINASE (CK)2022-03-06 16:19:14 Test Item Value Reference Range Interpretation Comments CREATINE KINASE TOTAL (BEAKER) (test 141 U/L 29-200 code = 380) Check Writing Machine Operator ID - BST4, [id number] 15:13:16 Test Item Value Reference Range Interpretation Comments FREE T4 (BEAKER) (test code = 655) 0.95 ng/dL 0.70-1.48 Check Writing Machine Operator ID - BSTSH/FREE T4 IF [id number] 15:13:16 Test Item Value Reference Range Interpretation Comments THYROID STIMULATING HORMONE 2.060 uIU/mL 0.350-4.940 (BEAKER) (test code = 772) Check Writing Machine Operator ID - BSB-TYPE NATRIURETIC FACTOR (BNP)2022-03-06 14:26:30 Test Item Value Reference Range Interpretation Comments B-TYPE NATRIURETIC PEPTIDE (BEAKER) < pg/mL 0-100 (test code = 700) Check Writing Machine Operator ID - JSHIGH SENSITIVITY TROPONIN [id number] 14:14:54 Test Item Value Reference Range Interpretation Comments HIGH SENSITIVITY < pg/ml See_Comment [Automated message] TROPONIN I (test code = The system which 0293548) generated this result transmitted ref erence range: <=35. Th e reference range was not used to interpr et this result as normal/abnormal . Check Writing Machine Operator ID - JSThe AGENT TELEGRAPHER STAT High Sensitivity Troponin-I results should be used in conjunctionwith other diagnostic information such as ECG, clinical observations and information, and patient symptoms to aid in the diagnosis of SD.RAD, CHEST, 1 VIEW, NON [id number] 14:10:00Reason for exam:- >NEUROLOGIC PROBLEMShould this be performed at the bedside?->Yes [facility] 1970 Sex: MFINAL REPORT Chest, 1 view, 03/06/2022 2:03 PM. History: Neurologic problem. Comparison: 03/28/2019. Discussion: The cardiomediastinal silhouette and pulmonary vasculature are within normal limits for a portable exam. The lungs are clear without evidence of consolidation or effusion. The soft tissues and osseous structures are intact. IMPRESSION: No acute cardiopulmonary abnormality. Signed: Bernabe Brown Verified Date/Time: 03/06/2022 14:10:44 REHENSIVE METABOLIC [id number] 14:08:22 Test Item Value Reference Range Interpretation [...] S NOT APPLICABLE FOR DIALYSIS PATIEN TS. Check Writing Machine Operator ID - [id number] 14:07:49 Test Item Value Reference Range Interpretation Comments MAGNESIUM (BEAKER) (test code = 2.0 mg/dL 1.6-2.6 627) Check Writing Machine Operator ID - [id number] 14:07:49 Test Item Value Reference Range Interpretation Comments PHOSPHORUS (BEAKER) (test code = 5.6 mg/dL 2.3-4.7 H 604) Check Writing Machine Operator ID - JSLACTIC ACID, [id number] 13:51:04 Test Item Value Reference Range Interpretation Comments LACTATE BLOOD VENOUS 1.32 mmol/L 0.50-2.20 Specime n slightly (2) (BEAKER) (test hemolyzed code = 5673) Check Writing Machine Operator ID - JSCBC W/PLT COUNT & AUTO [id number] 13:47:24 Test Item Value Reference Range Interpretation [...] (BEAKER) (test code = 2801) Coronavirus, CoVID-19, [id number] 01:07:20 Test Item Value Reference Range Interpretation Comments COVID-19 (SARS-COV-2) Not Detected Not Detected INTERP RETATION: No (test code = 42427-9) detect able levels of SARS-CoV-2 Coronavirus (COVID-19) [...] SARS-CoV-2 mole cular diagnostic assa y utilizes Financial Aid Administrator Mediated Amplification ( TMA) technology to r apidly detect the SARS -CoV-2 (COVID-19) viru s from respiratory adriana ples. In accordance w ith the FDA's kamran nce document "Polic y for Diagnostic Test s for Coronavirus Disease-2019 du [facility] the [facility] Emergency", thi s test was developed, and its performance characteristics were verified by the [facility] molecular diagn ostics laboratory and is authorized for clinical diagno stic use. This labor atory is certified un est[place]an the Clinical Laboratory Improvement Amendments (CLI A) as qualified to pe rform high complexity clinical labora tory testing. Lab Interpretation Normal (test code = 59143-6) [facility] [id number] 01:07:20 Test Item Value Reference Range Interpretation Comments COVID-19 (SARS-COV-2) Not Detected Not Detected INTERP RETATION: No (test code = 22237-6) detect able levels of SARS-CoV-2 Coronavirus (COVID-19) [...] SARS-CoV-2 mole cular diagnostic assa y utilizes Financial Aid Administrator Mediated Amplification ( TMA) technology to r apidly detect the SARS -CoV-2 (COVID-19) viru s from respiratory adriana ples. In accordance w ith the FDA's kamran nce document "Polic y for Diagnostic Test s for Coronavirus Disease-2019 du [facility] the Public [facility] Emergency", thi s test was developed, and its performance characteristics were verified by the [facility] molecular diagn ostics laboratory and is authorized for clinical diagno stic use. This labor atory is certified un estevan the Clinical Laboratory Improvement Amendments (CLI A) as qualified to rform high complexity clinical labora tory testing. Lab Interpretation Normal (test code = 25542-1) [facility], [id number] 01:07:20 Test Item Value Reference Range Interpretation Comments COVID-19 (SARS-COV-2) Not Detected Not Detected INTERP RETATION: No (test code = 32845-6) detect able levels of SARS-CoV-2 Coronavirus (COVID-19) [...] SARS-CoV-2 mole cular diagnostic assa y utilizes Financial Aid Administrator Mediated Amplification ( TMA) technology to r apidly detect the SARS -CoV-2 (COVID-19) viru s from respiratory adriana ples. In accordance w ith the FDA's kamran nce document "Polic y for Diagnostic Test s for Coronavirus Disease-2019 du [facility] the Public [facility] Emergency", thi s test was developed, and its performance characteristics were verified by the [facility] molecular diagn ostics laboratory and is authorized for clinical diagno stic use. This labor atory is certified un estevan the Clinical Laboratory Improvement Amendments (CLI A) as qualified to pe rform high complexity clinical labora tory testing. Lab Interpretation Normal (test code = 55481-6) Maged Aaronavirus, CoVID-19, [id number] 01:07:20 Test Item Value Reference Range Interpretation Comments COVID-19 (SARS-COV-2) Not Detected Not Detected INTERP RETATION: No (test code = 81993-7) detect able levels of SARS-CoV-2 Coronavirus (COVID-19) [...] SARS-CoV-2 mole cular diagnostic assa y utilizes Financial Aid Administrator Mediated Amplification ( TMA) technology to r apidly detect the SARS -CoV-2 (COVID-19) viru s from respiratory adriana ples. In accordance w ith the FDA's kamran nce document "Polic y for Diagnostic Test s for Coronavirus Disease-2019 du [facility] the [facility]", thi s test was developed, and its performance characteristics were verified by the [facility] molecular diagn ostics laboratory and is authorized for clinical diagno stic use. This labor atory is certified un estevan the Clinical Laboratory Improvement Amendments (CLI A) as qualified to pe rform high complexity clinical labora tory testing. Lab Interpretation Normal (test code = 12214-7) Maged Aaronavirus, CoVID-19, [id number] 01:07:20 Test Item Value Reference Range Interpretation Comments COVID-19 (SARS-COV-2) Not Detected Not Detected INTERP RETATION: No (test code = 29556-1) detect able levels of SARS-CoV-2 Coronavirus (COVID-19) [...] SARS-CoV-2 mole cular diagnostic assa y utilizes Financial Aid Administrator Mediated Amplification ( TMA) technology to r apidly detect the SARS -CoV-2 (COVID-19) viru s from respiratory adriana ples. In accordance w ith the FDA's kamran nce document "Polic y for Diagnostic Test s for Coronavirus Disease-2019 du ring the Public [facility] Emergency", thi s test was developed, and its performance characteristics were verified by the [facility] molecular diagn ostics laboratory and is authorized for clinical diagno stic use. This labor atory is certified un estevan the Clinical Laboratory Improvement Amendments (CLI A) as qualified to pe rform high complexity clinical labora tory testing. Lab Interpretation Normal (test code = 61477-5) [facility], [id number] 01:07:20 Test Item Value Reference Range Interpretation Comments COVID-19 (SARS-COV-2) Not Detected Not Detected INTERP RETATION: No (test code = 44107-9) detect able levels of SARS-CoV-2 Coronavirus (COVID-19) [...] SARS-CoV-2 mole cular diagnostic assa y utilizes Financial Aid Administrator Mediated Amplification ( TMA) technology to r apidly detect the SARS -CoV-2 (COVID-19) viru s from respiratory adriana ples. In accordance w ith the FDA's kamran nce document "Polic y for Diagnostic Test s for Coronavirus Disease-2019 du [facility] the [facility]", thi s test was developed, and its performance characteristics were verified by the [facility] molecular diagn ostics laboratory and is authorized for clinical diagno stic use. This labor atory is certified un estevan the Clinical Laboratory Improvement Amendments (CLI A) as qualified to pe rform high complexity clinical labora tory testing. Lab Interpretation Normal (test code = 21153-7) [facility], [id number] 01:07:20 Test Item Value Reference Range Interpretation Comments COVID-19 (SARS-COV-2) Not Detected Not Detected INTERP RETATION: No (test code = 25661-0) detect able levels of SARS-CoV-2 Coronavirus (COVID-19) [...] SARS-CoV-2 mole cular diagnostic assa y utilizes Financial Aid Administrator Mediated Amplification ( TMA) technology to r apidly detect the SARS -CoV-2 (COVID-19) viru s from respiratory adriana ples. In accordance w ith the FDA's kamran nce document "Polic y for Diagnostic Test s for Coronavirus Disease-2019 du ring the Public Heal th Emergency", thi s test was developed, and its performance characteristics were verified by the [facility] molecular diagn ostics laboratory and is authorized for clinical diagno stic use. This labor atory is certified un est[place] the Clinical Laboratory Improvement Amendments (CLI A) as qualified to pe rform high complexity clinical labora tory testing. Lab Interpretation Normal (test code = 75751-1) [facility] ORF1ab Resp Ql OLENA+pztyl0747-44-26 01:07:20 Test Item Value Reference Range Interpretation Comments Hospitalized? (test No code = 25060-5) ICU? (test code = No 15592-2) Symptomatic as No defined by CDC? (test code = 22986-4) Employed in No Healthcare? (test code = 42865-2) Resident in a No congregate care setting (including nursing homes, residential care for people with intellectual and developmental disabilities, psychiatric treatment facilities, group homes, board and care homes, homeless long term, foster care or other): (test code = 13987-4) SARS-CoV-2 ORF1ab NOT DETECTED Not Detected INTERPRETA TION: No Resp Ql OLENA+probe detectable levels of (test code = SARS-CoV-2 42953-6) Coronavirus (COVID-19) were present in this patient's [...] SARS-CoV-2 mole cular diagnostic assa y utilizes Financial Aid Administrator Mediated Amplification ( TMA) technology to r apidly detect the SARS -CoV-2 (COVID-19) viru s from respiratory adriana ples. In accordance with\\XC2A0\\the FDA's guidance docume nt "Policy for Diagnostic Test s for Coronavirus Disease-2019 du ring the Public Heal Emergency", thi s test was developed, and its performance characteristics were verified by the [facility] molecular diagn ostics laboratory and is authorized for clinical diagno stic use. \\XC2A0\\Thi s laboratory is certified under the Clinical Labora tory Improvement Amendments (CLI A) as qualified to pe rform high complexity clinical labora tory testing. POCT GLUCOSE POC docked kbakhe1724-24-18 08:09:01 Test Item Value Reference Range Interpretation Comments Glucose POC (test code = 80767500) 85 mg/dL 74-106 Lab Interpretation (test code = Normal 01340-5) [facility] [id number] 08:09:01 Test Item Value Reference Range Interpretation Comments Glucose POC (test code = 51908475) 85 mg/dL 74-106 Lab Interpretation (test code = Normal 50911-0) [facility] [id number] 08:09:01 Test Item Value Reference Range Interpretation Comments Glucose POC (test code = 00989715) 85 mg/dL 74-106 Lab Interpretation (test code = Normal 08162-9) [facility] bxrxiz1743 08:09:01 Test Item Value Reference Range Interpretation Comments Glucose POC (test code = 72387122) 85 mg/dL 74-106 Lab Interpretation (test code = Normal 22591-1) [facility] ukdesv6810-57-06 08:09:01 Test Item Value Reference Range Interpretation Comments Glucose POC (test code = 62801796) 85 mg/dL 74-106 Lab Interpretation (test code = Normal 24952-0) [facility] btzmbr1861-84-12 08:09:01 Test Item Value Reference Range Interpretation Comments Glucose POC (test code = 16107004) 85 mg/dL 74-106 Lab Interpretation (test code = Normal 71564-7) [facility] edlpcc0740-60-95 08:09:01 Test Item Value Reference Range Interpretation Comments Glucose POC (test code = 71519926) 85 mg/dL 74-106 Lab Interpretation (test code = Normal 90694-1) [facility]-CoV-2 ORF1ab Resp Ql OLENA+vvbgh7797-19-57 23:25:40 Test Item Value Reference Range Interpretation Comments Hospitalized? (test No code = 89912-8) ICU? (test code = No 89955-5) Symptomatic as No defined by CDC? (test code = 45794-2) Employed in No Healthcare? (test code = 01776-8) Resident in a No congregate care setting (including nursing homes, residential care for people with intellectual and developmental disabilities, psychiatric treatment facilities, group homes, board and care homes, homeless long term, foster care or other): (test code = 87061-1) SARS-CoV-2 ORF1ab NOT DETECTED Not Detected INTERPRETA TION: No Resp Ql OLENA+probe detectable levels of (test code = SARS-CoV-2 41233-5) Coronavirus (COVID-19) were present in this patient's [...] SARS-CoV-2 mole cular diagnostic assa y utilizes Financial Aid Administrator Mediated Amplification ( TMA) technology to r apidly detect the SARS -CoV-2 (COVID-19) viru s from respiratory adriana ples. In accordance with\\XC2A0\\the FDA's guidance docume nt "Policy for Diagnostic Test s for Coronavirus Disease-2019 du [facility] the [facility] Emergency", ginger s test was developed, and its performance characteristics were verified by the [facility] molecular diagn ostics laboratory and is authorized for clinical diagno stic use. \\XC2A0\\Thi s laboratory is certified under the Clinical Labora tory Improvement Amendments (CLI A) as qualified to pe rform high complexity clinical labora tory testing. 12 Lead [id number] 15:46:1012 LEAD EKG FOR [facility] Test Date: 8421-81-99Bmu Name: DORA JOSEPH Department: 5ECIPatient ID: [id number] Room: Gender: M Deboning Team Leader: [id number]: 1970 Requested By: DARRION Cho Number: [id number] Reading MD: Rene Patterson MeasurementsIntervals [place] Rate: 61 P: 72PR: 152 QRS: 55QRSD: 106 T: 63QT: 398 QTc: 400 Interpretive StatementsSINUS RHYTHMPOSSIBLE RIGHT VENTRICULAR CONDUCTION DELAY [RSR (QR) IN V1/V2]Electronically Signed On 01-22-2022 8:30:45 CDT by Rene Valle Odmbxs37 Lead [id number] 15:46:1012 LEAD EKG FOR [facility] Test Date: 9237-70-06Klo Name: DORA JOSEPH Department: 5ECIPatient ID: [id number] Room: Gender: M Deboning Team Leader: [id number]: 1970 Requested By: DARRION Cho Number: [id number] Reading MD: Rene Patterson MeasurementsIntervals [place] Rate: 61 P: 72PR: 152 QRS: 55QRSD: 106 T: 63QT: 398 QTc: 400 Interpretive StatementsSINUS RHYTHMPOSSIBLE RIGHT VENTR ICULAR CONDUCTION DELAY [RSR (QR) IN V1/V2]Electronically Signed On 01-22-2022 8:30:45 CDT by [facility] Sqawjg68 Lead [id number] 15:46:1012 LEAD EKG FOR [facility] Test Date: 5347-00-94Iml Name: DORA JOSEPH Department: 5ECIPatient ID: [id number] Room: Gender: M Deboning Team Leader: [id number]: 1970 Requested By: DARRION Cho Number: [id number] Reading MD: Rene Patterson MeasurementsIntervals [place] Rate: 61 P: 72PR: 152 QRS: 55QRSD: 106 T: 63QT: 398 QTc: 400 Interpretive StatementsSINUS RHYTHMPOSSIBLE RIGHT VENTRICULAR CONDUCTION DELAY [RSR (QR) IN V1/V2]Electronically Signed On 01-22-2022 8:30:45 CDT by Rene SadiSparkBaseCompaTrapeze Networks12 Lead [id number] 15:46:1012 LEAD EKG FOR [facility] Test Date: 9618-01-61Xmt Name: DORA JOSEPH Department: 5EPatient ID: [id number] Room: Gender: M Deboning Team Leader: [id number]: 1970 Requested By: DARRION Cho Number: [id number] Reading MD: Rene Patterson MeasurementsIntervals [place] Rate: 61 P: 72PR : 152 QRS: 55QRSD: 106 T: 63QT: 398 QTc: 400 Interpretive StatementsSINUS RHYTHMPOSSIBLE RIGHT VENTRICULAR CONDUCTION DELAY [RSR (QR) IN V1/V2]Electronically Signed On 01-22-2022 8:30:45 CDT by Rene Valle Chwxsd18 Lead [id number] 15:46:1012 LEAD EKG FOR [facility] Test Date: 9454-87-23Rne Name: DORA JOSEPH Department: 5EPatient ID: [id number] Room: Gender: M Deboning Team Leader: [id number]: 1970 Requested By: DARRION Cho Number: [id number] Reading MD: Rene Patterson MeasurementsIntervals [place] Rate: 61 P: 72PR: 152 QRS: 55QRSD: 106 T: 63QT: 398 QTc: 400 Interpretive StatementsSINUS RHYTHMPOSSIBLE RIGHT VENTRICULAR CONDUCTION DELAY [RSR (QR) IN V1/V2]Electronically Signed On 01-22-2022 8:30:45 CDT by Rene Valle Qvwfzm02 Lead [id number] 15:46:1012 LEAD EKG FOR [facility] Test Date: 5013-87-32Tvo Name: DORA JOSEPH Department: 5ECIPatient ID: [id number] Room: Gender: M Deboning Team Leader: [id number]: 1970 Requested By: DARRION Cho Number: [id number] Reading MD: Rene Patterson MeasurementsIntervals [place] Rate: 61 P: 72PR: 152 QRS: 55QRSD: 106 T: 63QT: 398 QTc: 400 Interpretive StatementsSINUS RHYTHMPOSSIBLE RIGHT VENTRI CULAR CONDUCTION DELAY [RSR (QR) IN V1/V2]Electronically Signed On 01-22-2022 8:30:45 CDT by [facility]Tr[facility]12 Lead [id number] 15:46:1012 LEAD EKG FOR [facility] Test Date: 1049-64-25Cio Name: DORA JOSEPH Department: 5ECIPatient ID: [id number] Room: Gender: M Deboning Team Leader: [id number]: 1970 Requested By: DARRION LOERA Marquis Number: [id number] Reading MD: Rene Patterson MeasurementsIntervals [place] Rate: 61 P: 72PR: 152 QRS: 55QRSD: 106 T: 63QT: 398 QTc: 400 Interpretive StatementsSINUS RHYTHMPOSSIBLE RIGHT VENTRICULAR CONDUCTION DELAY [RSR (QR) IN V1/V2]Electronically Signed On 01-22-2022 8:30:45 CDT by [facility]+HIV1 p24 Ag SerPl Ql [id number] 07:02:58 Test Item Value Reference Range Interpretation Comments HIV 1+2 Ab+HIV1 p24 Ag SerPl Ql IA NEGATIVE Negative (test code = 47875-1) [id number] 21:23:2512 LEAD EKG FOR [facility] Test Date: 5758-28-66Yef Name: DORA JOSEPH Department: 5520Patient ID: [id number] Room: 4Q88Cssntr: Deboning Team Leader: : 1970 Requested By: KARIN BASSETT [facility] Number: [id number] Reading MD: Chiara Calles MeasurementsIntervals [place] Rate: 72 P: 90PR:157 QRS: 87QRSD: 105 T: 90QT: 360 QTc: 384 Interpretive StatementsSINUS RHYTHMPOSSIBLE RIGHT VENTRICULAR CONDUCTION DELAY [RSR (QR) IN V1/V2]EARLY REPOLARIZATION [ST ELEVATION WITH NORMALLY INFLECTED T-WAVE]Electronically Signed On 01-17-2022 13:02:30 CDT by Chiara EsquedaFormerly [facility] Psych[facility] HospitalXsqglgFST1383-74-83 21:23:2512 LEAD EKG FOR [facility] Test Date: 9939-60-68Inm Name: DORA PAEZRY Department: 5520Patient ID: [id number] Room: 4Z17Jnhcsf: M Deboning Team Leader: : 1970 Requested By: KARIN BASSETT AOrder Number: [id number] Reading MD: Chiara Calles MeasurementsIntervals [place] Rate: 72 P: 90PR: 157 QRS: 87QRSD: 105 T: 90QT: 360 QTc: 384 Interpretive StatementsSINUS RHYTHMPOSSIBLE RIGHT VENTRICULAR CONDUCTION DELAY [RSR (QR) IN V1/V2]EARLY REPOLARIZATION [ST ELEVATION WITH NORMALLY INFLECTED T-WAVE]Electronically Signed On 01-17-2022 13:02:30 CDT by DosYoguresLes[place] [address]KutkiyGIK9670-84-68 21:23:2512 LEAD EKG FOR [facility] Test Date: 7779-27-47Ifk Name: DORA PAEZRY Department: 5520Patient ID: [id number] Room: 4E09Vgykoo: M Deboning Team Leader: : 1970 Requested By: KARIN BASSETT AOrder Number: [id number] Reading MD: Chiara Calles MeasurementsIntervals [place] Rate: 72 P: 90PR:157 QRS: 87QRSD: 105 T: 90QT: 360 QTc: 384 Interpretive StatementsSINUS RHYTHMPOSSIBLE RIGHT VENTRICU LAR CONDUCTION DELAY [RSR (QR) IN V1/V2]EARLY REPOLARIZATION [ST ELEVATION WITH NORMALLY INFLECTED T-WAVE]Electronically Signed On 01-17-2022 13:02:30 CDT by [facility]ROBAUTONew [facility] HospitalEjwgvgXDI2517-57-33 21:23:2512 LEAD EKG FOR [facility] Test Date: 7003-30-02Ghe Name: DORA JOSEPH Department: 5520Patient ID: [id number] Room: 3Y48Feibex: M Deboning Team Leader: : 1970 Requested By: JESSICA AOrder Number: [id number] Reading MD: Chiara Calles MeasurementsIntervals [place] Rate: 72 P: 90PR:157 QRS: 87QRSD: 105 T: 90QT: 360 QTc: 384 Interpretive StatementsSINUS RHYTHMPOSSIBLE RIGHT VENTRICULAR CONDUCTION DELAY [RSR (QR) IN V1/V2]EARLY REPOLARIZATION [ST ELEVATION WITH NORMALLY INFLECTED T-WAVE]Electronically Signed On 01-17-2022 13:02:30 CDT by [place] 34718022-05-26 21:23:2512 LEAD EKG FOR [facility] Test Date: 8735-28-60Axy Name: DORA JOSEPH Department: 5520Patient ID: [id number] Room: 2T41Treuft: M Deboning Team Leader: : 1970 Requested By: KARIN BASSETT AOrder Number: [id number] Reading MD: Chiara Calles MeasurementsIntervals [place] Rate: 72 P: 90PR:157 QRS: 87QRSD: 105 T: 90QT: 360 QTc: 384 Interpretive StatementsSINUS RHYTHMPOSSIBLE RIGHT VENTRICULAR CONDUCTION DELAY [RSR (QR) IN V1/V2]EARLY REPOLARIZATION [ST ELEVATION WITH NORMALLY INFLECTED T-WAVE]Electronically Signed On 01-17-2022 13:02:30 CDT by [place] 34718022-05-26 21:23:2512 LEAD EKG FOR [facility] Test Date: 6689-64-00Ifx Name: DORA JOSEPH Department: 5520Patient ID: [id number] Room: 7Z56Kxwxuh: M Deboning Team Leader: : 1970 Requested By: KARIN BASSETT AOrder Number: [id number] Reading MD: Chiara Calles MeasurementsIntervals [place] Rate: 72 P: 90PR:157 QRS: 87QRSD: 105 T: 90QT: 360 QTc: 384 Interpretive StatementsSINUS RHYTHMPOSSIBLE RIGHT VENTRICULAR CONDUCTION DELAY [RSR (QR) IN V1/V2]EARLY REPOLARIZATION [ST ELEVATION WITH NORMALLY INFLECTED T-WAVE]Electronically Signed On 01-17-2022 13:02:30 CDT by [place] 34718022-05-26 21:23:2512 LEAD EKG FOR [facility] Test Date: 9951-15-60Jvv Name: DORA JOSEPH Department: 5520Patient ID: [id number] Room: 8T66Sznvfg: M Deboning Team Leader: : 1970 Requested By: KARIN BASSETT AOrder Number: [id number] Reading MD: Chiara Calles MeasurementsIntervals [place] Rate: 72 P: 90PR:157 QRS: 87QRSD: 105 T: 90QT: 360 QTc: 384 Interpretive StatementsSINUS RHYTHMPOSSIBLE RIGHT VENTRICULAR CONDUCTION DELAY [RSR (QR) IN V1/V2]EARLY REPOLARIZATION [ST ELEVATION WITH NORMALLY INFLECTEDT-WAVE]Electronically Signed On 01-17-2022 13:02:30 CDT by Chiara DavisOhioHealth [facility]ide [facility] HospitalRS-CoV-2 ORF1ab Resp Ql OLENA+tsliv2292-11-07 19:57:49 Test Item Value Reference Range Interpretation Comments Hospitalized? (test No code = 91125-5) ICU? (test code = No 64400-2) Symptomatic as No defined by CDC? (test code = 39002-0) Employed in No Healthcare? (test code = 05206-4) Resident in a No congregate care setting (including nursing homes, residential care for people with intellectual and developmental disabilities, psychiatric treatment facilities, group homes, board and care homes, homeless long term, foster care or other): (test code = 97823-0) SARS-CoV-2 ORF1ab NOT DETECTED Not Detected INTERPRETA TION: No Resp Ql OLENA+probe detectable levels of (test code = SARS-CoV-2 02686-5) Coronavirus (COVID-19) were present in this patient's [...] SARS-CoV-2 mole cular diagnostic assa y utilizes Financial Aid Administrator Mediated Amplification ( TMA) technology to r apidly detect the SARS -CoV-2 (COVID-19) viru s from respiratory adriana ples. In accordance with\\XC2A0\\the FDA's guidance docume nt "Policy for Diagnostic Test s for Coronavirus Disease-2019 du [facility] the [facility] Emergency", ginger s test was developed, and its performance characteristics were verified by the [facility] molecular diagn ostics laboratory and is authorized for clinical diagno stic use. \\XC2A0\\Ginger s laboratory is certified under the Clinical Labora tory Improvement Amendments (CLI A) as qualified to pe rform high complexity clinical labora tory testing. POCT CREATININE POC docked cbwqel9811-13-13 13:57:55 Test Item Value Reference Range Interpretation Comments Creatinine POC (test 2.4 mg/dL 0.6-1.3 H Physici an Notified code = 75963646) eGFR If non- Am 30 See_Comment L [Aut omated message] (test code = 85735391) The s ystem which generated this result transmit dain reference range : >=90 mL/min/1.7 3 m2. The reference r meredith was not used to interpret this result as normal/abnormal . eGFR If Am (test 35 See_Comment L [A utomated message] code = 09975060) The system which generated this result transmit dain reference range : >=90 mL/min/1.7 3 m2. The reference r meredith was not used to interpret this result as normal/abnormal . Lab Interpretation (test Abnormal code = 91456-3) [facility] CREATININE POC docked [id number] 13:57:55 Test Item Value Reference Range Interpretation Comments Creatinine POC (test 2.4 mg/dL 0.6-1.3 H Physici an Notified code = 26849556) eGFR If non- Am 30 See_Comment L [Aut omated message] (test code = 95297509) The s ystem which generated this result transmit dain reference range : >=90 mL/min/1.7 3 m2. The reference r meredith was not used to interpret this result as normal/abnormal . eGFR If Am (test 35 See_Comment L [A utomated message] code = 44655992) The system which generated this result transmit dain reference range : >=90 mL/min/1.7 3 m2. The reference r meredith was not used to interpret this result as normal/abnormal . Lab Interpretation (test Abnormal code = 02339-3) [facility] CREATININE POC docked qjfrsq3214-14-69 13:57:55 Test Item Value Reference Range Interpretation Comments Creatinine POC (test 2.4 mg/dL 0.6-1.3 H Physici an Notified code = 33312996) eGFR If non- Am 30 See_Comment L [Aut omated message] (test code = 81150911) The s ystem which generated this result transmit dain reference range : >=90 mL/min/1.7 3 m2. The reference r meredith was not used to interpret this result as normal/abnormal . eGFR If Am (test 35 See_Comment L [A utomated message] code = 21437630) The system which generated this result transmit dain reference range : >=90 mL/min/1.7 3 m2. The reference r meredith was not used to interpret this result as normal/abnormal . Lab Interpretation (test Abnormal code = 55519-4) [facility] CREATININE POC docked [id number] 13:57:55 Test Item Value Reference Range Interpretation Comments Creatinine POC (test 2.4 mg/dL 0.6-1.3 H Physici an Notified code = 65017475) eGFR If non- Am 30 See_Comment L [Aut omated message] (test code = 49988678) The s ystem which generated this result transmit dain reference range : >=90 mL/min/1.7 3 m2. The reference r meredith was not used to interpret this result as normal/abnormal . eGFR If Am (test 35 See_Comment L [A utomated message] code = 11330948) The system which generated this result transmit dain reference range : >=90 mL/min/1.7 3 m2. The reference r meredith was not used to interpret this result as normal/abnormal . Lab Interpretation (test Abnormal code = 35535-4) [facility] CREATININE POC docked yremqu2785-26-66 13:57:55 Test Item Value Reference Range Interpretation Comments Creatinine POC (test 2.4 mg/dL 0.6-1.3 H Physici an Notified code = 68840105) eGFR If non- Am 30 See_Comment L [Aut omated message] (test code = 44152869) The s ystem which generated this result transmit dain reference range : >=90 mL/min/1.7 3 m2. The reference r meredith was not used to interpret this result as normal/abnormal . eGFR If Am (test 35 See_Comment L [A utomated message] code = 52091477) The system which generated this result transmit dain reference range : >=90 mL/min/1.7 3 m2. The reference r meredith was not used to interpret this result as normal/abnormal . Lab Interpretation (test Abnormal code = 47624-5) [facility] CREATININE POC docked oxqnui1964-66-72 13:57:55 Test Item Value Reference Range Interpretation Comments Creatinine POC (test 2.4 mg/dL 0.6-1.3 H Physici an Notified code = 27126951) eGFR If non- Am 30 See_Comment L [Aut omated message] (test code = 93295384) The s ystem which generated this result transmit dain reference range : >=90 mL/min/1.7 3 m2. The reference r meredith was not used to interpret this result as normal/abnormal . eGFR If Am (test 35 See_Comment L [A utomated message] code = 56701702) The system which generated this result transmit dain reference range : >=90 mL/min/1.7 3 m2. The reference r meredith was not used to interpret this result as normal/abnormal . Lab Interpretation (test Abnormal code = 60918-2) [facility] CREATININE POC docked [id number] 13:57:55 Test Item Value Reference Range Interpretation Comments Creatinine POC (test 2.4 mg/dL 0.6-1.3 H Physici an Notified code = 59705226) eGFR If non- Am 30 See_Comment L [Aut omated message] (test code = 90101828) The s ystem which generated this result transmit dain reference range : >=90 mL/min/1.7 3 m2. The reference r meredith was not used to interpret this result as normal/abnormal . eGFR If Am (test 35 See_Comment L [A utomated message] code = 55682332) The system which generated this result transmit dain reference range : >=90 mL/min/1.7 3 m2. The reference r meredith was not used to interpret this result as normal/abnormal . Lab Interpretation (test Abnormal code = 41970-4) [facility] POC docked nomevy7481-20-00 13:48:46 Test Item Value Reference Range Interpretation Comments Sodium POC (test code = 126 mmol/L 136-145 L 62309209) Potassium POC (test code 4.4 mmol/L 3.5-5.1 = 86055150) Chloride POC (test code 100 mmol/L 98-107 = 11185321) TCO2 POC (test code = 17 mmol/L 21-32 L Physic aylin Notified 63568944) Urea Nitrogen POC (test 36 mg/dL 7-18 H code = 39354610) Glucose POC (test code = 114 mg/dL 74-106 H 70110111) Hemoglobin POC (test 11.9 g/dL 12-16 L code = 85972323) Hematocrit POC (test 35.0 % 37.0-47.0 L code = 55709057) Lab Interpretation (test Abnormal code = 08700-1) [facility] POC docked skgyxw1249-28-66 13:48:46 Test Item Value Reference Range Interpretation Comments Sodium POC (test code = 126 mmol/L 136-145 L 62559547) Potassium POC (test code 4.4 mmol/L 3.5-5.1 = 87056662) Chloride POC (test code 100 mmol/L 98-107 = 88780192) TCO2 POC (test code = 17 mmol/L 21-32 L Physic aylin Notified 82854647) Urea Nitrogen POC (test 36 mg/dL 7-18 H code = 87495144) Glucose POC (test code = 114 mg/dL 74-106 H 02397494) Hemoglobin POC (test 11.9 g/dL 12-16 L code = 12446910) Hematocrit POC (test 35.0 % 37.0-47.0 L code = 85184319) Lab Interpretation (test Abnormal code = 85757-6) [facility] POC docked [id number] 13:48:46 Test Item Value Reference Range Interpretation Comments Sodium POC (test code = 126 mmol/L 136-145 L 26567569) Potassium POC (test code 4.4 mmol/L 3.5-5.1 = 27687513) Chloride POC (test code 100 mmol/L 98-107 = 81088939) TCO2 POC (test code = 17 mmol/L 21-32 L Physic aylin Notified 61768021) Urea Nitrogen POC (test 36 mg/dL 7-18 H code = 59805842) Glucose POC (test code = 114 mg/dL 74-106 H 40891779) Hemoglobin POC (test 11.9 g/dL 12-16 L code = 11853784) Hematocrit POC (test 35.0 % 37.0-47.0 L code = 98293672) Lab Interpretation (test Abnormal code = 89670-7) [facility] POC docked aoovoh1054-97-17 13:48:46 Test Item Value Reference Range Interpretation Comments Sodium POC (test code = 126 mmol/L 136-145 L 24363007) Potassium POC (test code 4.4 mmol/L 3.5-5.1 = 50320230) Chloride POC (test code 100 mmol/L 98-107 = 54665996) TCO2 POC (test code = 17 mmol/L 21-32 L Physic aylin Notified 22352923) Urea Nitrogen POC (test 36 mg/dL 7-18 H code = 02510296) Glucose POC (test code = 114 mg/dL 74-106 H 85835712) Hemoglobin POC (test 11.9 g/dL 12-16 L code = 62195671) Hematocrit POC (test 35.0 % 37.0-47.0 L code = 92843596) Lab Interpretation (test Abnormal code = 21876-0) [facility] POC docked [id number] 13:48:46 Test Item Value Reference Range Interpretation Comments Sodium POC (test code = 126 mmol/L 136-145 L 86781424) Potassium POC (test code 4.4 mmol/L 3.5-5.1 = 10394269) Chloride POC (test code 100 mmol/L 98-107 = 38441124) TCO2 POC (test code = 17 mmol/L 21-32 L Physic aylin Notified 87094037) Urea Nitrogen POC (test 36 mg/dL 7-18 H code = 21613712) Glucose POC (test code = 114 mg/dL 74-106 H 88974196) Hemoglobin POC (test 11.9 g/dL 12-16 L code = 78887273) Hematocrit POC (test 35.0 % 37.0-47.0 L code = 36690202) Lab Interpretation (test Abnormal code = 49924-5) [facility] BMP POC docked nyofir1238-83-77 13:48:46 Test Item Value Reference Range Interpretation Comments Sodium POC (test code = 126 mmol/L 136-145 L 23913798) Potassium POC (test code 4.4 mmol/L 3.5-5.1 = 80570352) Chloride POC (test code 100 mmol/L 98-107 = 41210194) TCO2 POC (test code = 17 mmol/L 21-32 L Physic aylin Notified 71279497) Urea Nitrogen POC (test 36 mg/dL 7-18 H code = 42993256) Glucose POC (test code = 114 mg/dL 74-106 H 54811288) Hemoglobin POC (test 11.9 g/dL 12-16 L code = 56792284) Hematocrit POC (test 35.0 % 37.0-47.0 L code = 84311973) Lab Interpretation (test Abnormal code = 73599-4) [facility] BMP POC docked [id number] 13:48:46 Test Item Value Reference Range Interpretation Comments Sodium POC (test code = 126 mmol/L 136-145 L 43218251) Potassium POC (test code 4.4 mmol/L 3.5-5.1 = 56879021) Chloride POC (test code 100 mmol/L 98-107 = 04695531) TCO2 POC (test code = 17 mmol/L 21-32 L Physic aylin Notified 11595574) Urea Nitrogen POC (test 36 mg/dL 7-18 H code = 49389257) Glucose POC (test code = 114 mg/dL 74-106 H 91589973) Hemoglobin POC (test 11.9 g/dL 12-16 L code = 50223814) Hematocrit POC (test 35.0 % 37.0-47.0 L code = 25429013) Lab Interpretation (test Abnormal code = 09651-0) [facility]-CoV-2 ORF1ab Resp Ql OLENA+[id number] 20:25:16 Test Item Value Reference Range Interpretation Comments Hospitalized? (test No code = 33009-3) ICU? (test code = No 56868-3) Symptomatic as No defined by CDC? (test code = 74748-1) Employed in No Healthcare? (test code = 07449-0) Resident in a No congregate care setting (including nursing homes, residential care for people with intellectual and developmental disabilities, psychiatric treatment facilities, group homes, board and care homes, homeless long term, foster care or other): (test code = 12226-2) SARS-CoV-2 ORF1ab NOT DETECTED Not Detected INTERPRETA TION: No Resp Ql OLENA+probe detectable levels of (test code = SARS-CoV-2 13868-0) Coronavirus (COVID-19) were present in this patient's [...] SARS-CoV-2 mole cular diagnostic assa y utilizes Financial Aid Administrator Mediated Amplification ( TMA) technology to r apidly detect the SARS -CoV-2 (COVID-19) viru s from respiratory adriana ples. In accordance with\\XC2A0\\the FDA's guidance docume nt "Policy for Diagnostic Test s for Coronavirus Disease-2019 du [facility] the [facility]", ginger s test was developed, and its performance characteristics were verified by the [facility] molecular diagn ostics laboratory and is authorized for clinical diagno stic use. \\XC2A0\\Thi s laboratory is certified under the Clinical Labora tory Improvement Amendments (CLI A) as qualified to pe rform high complexity clinical labora tory testing. POCT VBG POC docked [id number] 11:16:15 Test Item Value Reference Range Interpretation Comments pH, Pankaj POC (test code 7.32 7.33-7.43 L = 84011124) pCO2,Pankaj POC (test code 31.0 See_Comment L [Au tomated = 61997497) message] The sy stem which generated this result transmitted reference range : 38 - 50 mmHg. The reference range was not used to interpret this result as normal/abnormal . PO2, Venous POC (BKR) 44 See_Comment L [Auto mated (test code = 43896542) [employer] ge] The system which generated this result transmitted reference range : 50 - 75 mm Hg. The reference range was not used to interpret this result as normal/abnormal . Ionized Calcium POC 1.24 mmol/L 1.15-1.29 (test code = 06579840) HCO3, Pankaj POC (test 16 mmol/L 22-26 L code = 99283510) TCO2 POC (test code = 17 mmol/L 21-32 L 78457088) Base Deficit, Pankaj POC -9 (test code = 28420252) Sample Type (test code IVEN Physi erik Notified = 62660390) % Sat, Pankaj POC (test 77 % code = 20173309) Lab Interpretation Abnormal (test code = 50769-1) [facility] VBG POC docked [id number] 11:16:15 Test Item Value Reference Range Interpretation Comments pH, Pankaj POC (test code 7.32 7.33-7.43 L = 95461402) pCO2,Pankaj POC (test code 31.0 See_Comment L [Au tomated = 25398105) message] The sy stem which generated this result transmitted reference range : 38 - 50 mmHg. The reference range was not used to interpret this result as normal/abnormal . PO2, Venous POC (BKR) 44 See_Comment L [Auto mated (test code = 58949580) [employer] ge] The system which generated this result transmitted reference range : 50 - 75 mm Hg. The reference range was not used to interpret this result as normal/abnormal . Ionized Calcium POC 1.24 mmol/L 1.15-1.29 (test code = 00399907) HCO3, Pankaj POC (test 16 mmol/L 22-26 L code = 35579613) TCO2 POC (test code = 17 mmol/L 21-32 L 14960028) Base Deficit, Pankaj POC -9 (test code = 43890802) Sample Type (test code IVEN Physi erik Notified = 77517221) % Sat, Pankaj POC (test 77 % code = 76181119) Lab Interpretation Abnormal (test code = 58533-0) [facility] VBG POC docked [id number] 11:16:15 Test Item Value Reference Range Interpretation Comments pH, Pankaj POC (test code 7.32 7.33-7.43 L = 26910254) pCO2,Pankaj POC (test code 31.0 See_Comment L [Au tomated = 76187030) message] The sy stem which generated this result transmitted reference range : 38 - 50 mmHg. The reference range was not used to interpret this result as normal/abnormal . PO2, Venous POC (BKR) 44 See_Comment L [Auto mated (test code = 41979657) messa ge] The system which generated this result transmitted reference range : 50 - 75 mm Hg. The reference range was not used to interpret this result as normal/abnormal . Ionized Calcium POC 1.24 mmol/L 1.15-1.29 (test code = 07167648) HCO3, Pankaj POC (test 16 mmol/L 22-26 L code = 45938394) TCO2 POC (test code = 17 mmol/L 21-32 L 79288428) Base Deficit, Pankaj POC -9 (test code = 03477367) Sample Type (test code STEPAN valencia Notified = 76021855) % Sat, Pankaj POC (test 77 % code = 67452780) Lab Interpretation Abnormal (test code = 83725-6) [facility] POC docked [id number] 11:16:15 Test Item Value Reference Range Interpretation Comments pH, Pankaj POC (test code 7.32 7.33-7.43 L = 11711558) pCO2,Pankaj POC (test code 31.0 See_Comment L [Au tomated = 58738529) message] The sy stem which generated this result transmitted reference range : 38 - 50 mmHg. The reference range was not used to interpret this result as normal/abnormal . PO2, Venous POC (BKR) 44 See_Comment L [Auto mated (test code = 69392545) messa ge] The system which generated this result transmitted reference range : 50 - 75 mm Hg. The reference range was not used to interpret this result as normal/abnormal . Ionized Calcium POC 1.24 mmol/L 1.15-1.29 (test code = 25376466) HCO3, Pankaj POC (test 16 mmol/L 22-26 L code = 08624248) TCO2 POC (test code = 17 mmol/L 21-32 L 85167760) Base Deficit, Pankaj POC -9 (test code = 58232812) Sample Type (test code STEPAN valencia Notified = 75657672) % Sat, Pankaj POC (test 77 % code = 46704539) Lab Interpretation Abnormal (test code = 22146-6) [facility] VBG POC docked [id number] 11:16:15 Test Item Value Reference Range Interpretation Comments pH, Pankaj POC (test code 7.32 7.33-7.43 L = 27676592) pCO2,Pankaj POC (test code 31.0 See_Comment L [Au tomated = 11189785) message] The sy stem which generated this result transmitted reference range : 38 - 50 mmHg. The reference range was not used to interpret this result as normal/abnormal . PO2, Venous POC (BKR) 44 See_Comment L [Auto mated (test code = 32667212) [employer] ge] The system which generated this result transmitted reference range : 50 - 75 mm Hg. The reference range was not used to interpret this result as normal/abnormal . Ionized Calcium POC 1.24 mmol/L 1.15-1.29 (test code = 67964696) HCO3, Pankaj POC (test 16 mmol/L 22-26 L code = 87678401) TCO2 POC (test code = 17 mmol/L 21-32 L 21607509) Base Deficit, Pankaj POC -9 (test code = 06291384) Sample Type (test code STEPAN valencia Notified = 15413086) % Sat, Pankaj POC (test 77 % code = 14176271) Lab Interpretation Abnormal (test code = 17176-4) [facility] VBG POC docked [id number] 11:16:15 Test Item Value Reference Range Interpretation Comments pH, Pankaj POC (test code 7.32 7.33-7.43 L = 11740243) pCO2,Pankaj POC (test code 31.0 See_Comment L [Au tomated = 57741430) message] The sy stem which generated this result transmitted reference range : 38 - 50 mmHg. The reference range was not used to interpret this result as normal/abnormal . PO2, Venous POC (BKR) 44 See_Comment L [Auto mated (test code = 97170401) [employer]] The system which generated this result transmitted reference range : 50 - 75 mm Hg. The reference range was not used to interpret this result as normal/abnormal . Ionized Calcium POC 1.24 mmol/L 1.15-1.29 (test code = 66185528) HCO3, Pankaj POC (test 16 mmol/L 22-26 L code = 66314450) TCO2 POC (test code = 17 mmol/L 21-32 L 57361134) Base Deficit, Pankaj POC -9 (test code = 64645215) Sample Type (test code IVEN Physi erik Notified = 77673248) % Sat, Pankaj POC (test 77 % code = 18777233) Lab Interpretation Abnormal (test code = 57132-2) [facility] VBG POC docked [id number] 11:16:15 Test Item Value Reference Range Interpretation Comments pH, Pankaj POC (test code 7.32 7.33-7.43 L = 99081321) pCO2,Pankaj POC (test code 31.0 See_Comment L [Au tomated = 43482754) message] The sy stem which generated this result transmitted reference range : 38 - 50 mmHg. The reference range was not used to interpret this result as normal/abnormal . PO2, Venous POC (BKR) 44 See_Comment L [Auto mated (test code = 53479184) [employer]] The system which generated this result transmitted reference range : 50 - 75 mm Hg. The reference range was not used to interpret this result as normal/abnormal . Ionized Calcium POC 1.24 mmol/L 1.15-1.29 (test code = 81242064) HCO3, Pankaj POC (test 16 mmol/L 22-26 L code = 14448873) TCO2 POC (test code = 17 mmol/L 21-32 L 60787207) Base Deficit, Pankaj POC -9 (test code = 60671393) Sample Type (test code IVEN Physi erik Notified = 28848309) % Sat, Pankaj POC (test 77 % code = 82833115) Lab Interpretation Abnormal (test code = 83100-2) [place] [address] LEAD [id number] 20:59:5612 LEAD EKG FOR [facility] Test Date: 7543-80-39Xnu Name: DORA SOLSBERRY Department: 5520Patient ID: [id number] Room: Gender: M Deboning Team Leader: [id number]: 1970 Requested By: TANJA Garza Number: [id number] Reading MD: Chiara Calles MeasurementsIntervals [place] Rate: 75 P: 84PR: 153 QRS: 67QRSD: 104 T: 77QT: 344 QTc: 373 Interpretive StatementsSINUS RHYTHMPOSSIBLE RIGHT VENTRICULAR CONDUCTION DELAY [RSR (QR) IN V1/V2]Electronically Signed On 01-09-2022 8:27:19 CDT by Krupa Skhtvq50 LEAD [id number] 20:59:5612 LEAD EKG FOR [facility] Test Date: 0909-74-09Rqe Name: DORA SOLSBERRY Department: 5520Patient ID: [id number] Room: Gender: M Deboning Team Leader: [id number]: 1970 Requested By: TANJA Garza Number: [id number] Reading MD: Chiara Calles MeasurementsIntervals [place] Rate: 75 P: 84PR: 153 QRS: 67QRSD: 104 T: 77QT: 344 QTc: 373 Interpretive StatementsSINUS RHYTHMPOSSIBLE RIGHT VENTR ICULAR CONDUCTION DELAY [RSR (QR) IN V1/V2]Electronically Signed On 01-09-2022 8:27:19 CDT by Chiara Redding Exivgw12 LEAD [id number] 20:59:5612 LEAD EKG FOR [facility] Test Date: 0040-13-52Nya Name: DORA SOLSBERRY Department: 5520Patient ID: [id number] Room: Gender: M Deboning Team Leader: [id number]: 1970 Requested By: TANJA Garza Number: [id number] Reading MD: Chiara Calles MeasurementsIntervals [place] Rate: 75 P: 84PR: 153 QRS: 67QRSD: 104 T: 77QT: 344 QTc: 373 Interpretive StatementsSINUS RHYTHMPOSSIBLE RIGHT VENTRICULAR CONDUCTION DELAY [RSR (QR) IN V1/V2]Electronically Signed On 01-09-2022 8:27:19 CDT by [facility] childrenFashiontrotLawrence Memorial HospitalExuru! Mjnuca97 LEAD [id number] 20:59:5612 LEAD EKG FOR [facility] Test Date: 2576-20-56Rav Name: DORA JOSEPH Department: 5520Patient ID: [id number] Room: Gender: M Deboning Team Leader: [id number]: 1970 Requested By: TANJA Garza Number: [id number] Reading MD: Chiara Calles MeasurementsIntervals [place] Rate: 75 P: 84 IN: 153 QRS: 67QRSD: 104 T: 77QT: 344 QTc: 373 Interpretive StatementsSINUS RHYTHMPOSSIBLE RIGHT VENTRICULAR CONDUCTION DELAY [RSR (QR) IN V1/V2]Electronically Signed On 01-09-2022 8:27:19 CDT by [facility] FashiontrotLawrence Memorial HospitalTrapeze Networks12 LEAD [id number] 20:59:5612 LEAD EKG FOR [facility] Test Date: 9493-02-55Eea Name: DORA PAEZRY Department: 5520Patient ID: [id number] Room: Gender: M Deboning Team Leader: [id number]: 1970 Requested By: TANJA Garza Number: [id number] Reading MD: Chiara Calles MeasurementsIntervals [place] Rate: 75 P: 84PR: 153 QRS: 67QRSD: 104 T: 77QT: 344 QTc: 373 Interpretive StatementsSINUS RHYTHMPOSSIBLE RIGHT VENTRICULAR CONDUCTION DELAY [RSR (QR) IN V1/V2]Electronically Signed On 01-09-2022 8:27:19 CDT by [facility] FashiontrotLawrence Memorial HospitalExuru! Cucfhd82 LEAD [id number] 20:59:5612 LEAD EKG FOR [facility] Test Date: 7822-98-18Tgt Name: DORA PAEZRY Department: 5520Patient ID: [id number] Room: Gender: M Deboning Team Leader: [id number]: 1970 Requested By: TANJA Garza Number: [id number] Reading MD: Chiara Calles MeasurementsIntervals [place] Rate: 75 P: 84PR: 153 QRS: 67QRSD: 104 T: 77QT: 344 QTc: 373 Interpretive StatementsSINUS RHYTHMPOSSIBLE RIGHT VENT RICULAR CONDUCTION DELAY [RSR (QR) IN V1/V2]Electronically Signed On 01-09-2022 8:27:19 CDT by [place] [address] LEAD [id number] 20:59:5612 LEAD EKG FOR [facility] Test Date: 9139-77-38Ogb Name: DORA JOSEPH Department: 5520Patient ID: [id number] Room: Gender: M Deboning Team Leader: [id number]: 1970 Requested By: TANJA Garza Number: [id number] Reading MD: Chiara Calles MeasurementsIntervals [place] Rate: 75 P: 84PR: 153 QRS: 67QRSD: 104 T: 77QT: 344 QTc: 373 Interpretive StatementsSINUS RHYTHMPOSSIBLE RIGHT VENTRICULAR CONDUCTION DELAY [RSR (QR) IN V1/V2]Electronically Signed On 01-09-2022 8:27:19 CDT by [facility]O [id number] 23:52:00 Test Item Value Reference Range Interpretation [...] = MX#) 0.8 k/mm3 0.1-0.8 N LIVER [id number] 20:04:00 Test Item Value Reference Range Interpretation Comments TOTAL PROTEIN (test code 6.7 GM/DL 5.0-8.0 N Per formed by = PROT) 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 [facility] ed Ctr ALBUMIN (test code = [...] 67 UNITS/L 25-125 N LYNDSEY) BASIC METABOLIC [id number] 19:54:00 Test Item Value Reference Range Interpretation [...] POCGLU) 81 MG/DL - CT ABD PELVIS [id number] 00:00:[address] [facility] SHANA LAKEName: MARIA ISABEL JOSEPH : 1970 Sex: M Name: MARIA ISABEL JOSEPH FSED : 1970 Age/S: 51 / M [address] [facility] Unit #: [id number] Loc: [place] [address] Phys: Raffaele Levi MD Acct: [id number] Dis Date: Status: PRE ER PHONE #: Exam Date: 09/23/20211999 FAX #: Reason: RUQ PAIN, VOMITING EXAMS: CPT CODE: [id number] CT ABD PELVIS W/CONT 71792 PROCEDURE INFORMATION: Exam: CT Abdomen And Pelvis [...] to moderate wall thickening of few left abdo anca small bowel loops are seen. No dilated [...] left PAGE 1 Signed Report (CONTINUED) Name: MARIA ISABEL JOSEPH FSED : 1970 Age/S: 51 / M [address] [facility] Unit #: [id number] Loc: [place] [address] Phys: Raffaele Levi MD Acct: [id number] Dis Date:Status: PRE ER PHONE #: Exam Date: 09/23/20211999 FAX #: Reason: RUQ PAIN, VOMITING EXAMS: CPT CODE: [id number] CT ABD PELVIS W/CONT 89114 <Continued> abdominal small bowel loops may relate to incomplete luminal distention or enteritis. 2. 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 No obstruction. at 2048 Reported and signed by: Juan Juarez M.D. CC: Raffaele Levi MD Technologist:Stephanie Albrecht, RT(R)(CT) CTDI: DLP: Trnscb Date/Time: 09/23/2021 (2048)t.SDR.SG9 Orig Print D/T: S: 09/23/2021 (2049) PAGE 2 Signed ReportCOMPREHENSIVE METABOLIC [id number] 11:51:00 Test Item Value Reference Range Interpretation [...] Units/L 50.0-136.0 N code = ALKP) PROTHROMBIN [id number] 11:41:00 Test Item Value Reference Range Interpretation Comments PROTHROMBIN TIME 10.9 SECONDS 9.9-12.8 N PATIENT (test code = PTP) INTERNATIONAL NORMAL 0.9 0.89-1.14 N THE INR IS TO BE USED RATIO (test code = ONLY FOR MONITORING INR) ORAL ANTICOAGULANTTH ERAPY. THE FOLLOWING A RE SUGGESTED RANGE S FROM [facility] LE[facility] OF CHEST PHYSICIANS:LOLITA CATION INR VALUEPROPHY LAXIS OF VENOUS THROM [...] D ANTIBODIES 2.5 - 3.5 CBC W/AUTO [id number] 11:36:00 Test Item Value Reference Range Interpretation [...] = 0.00 X10 3uL 0.00-0.01 N NRBC#) CBC W/AUTO [id number] 09:48:00 Test Item Value Reference Range Interpretation [...] = MX#) 0.8 k/mm3 0.1-0.8 N GLUCOSE [id number] 06:12:00 Test Item Value Reference Range Interpretation Comments GLUCOSE BEDSIDE (test 129 MG/DL 70-110 H Perfor med by certified code = GLUBED) 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[facility] BASIC METABOLIC [id number] 05:21:00 Test Item Value Reference Range Interpretation [...] (test code = POCGLU) 92 MG/DL GLUCOSE [id number] 05:19:00 Test Item Value Reference Range Interpretation Comments GLUCOSE BEDSIDE (test 51 MG/DL 70-110 L Perfor med by certified code = GLUBED) 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[facility] CBC W/AUTO [id number] 14:00:00 Test Item Value Reference Range Interpretation [...] MX#) 0.2 k/mm3 0.1-0.8 N CBC W/AUTO [id number] 00:07:00 Test Item Value Reference Range Interpretation [...] = LY#) 2.4 K/uL 1.0-3.8 N LIVER [id number] 16:14:00 Test Item Value Reference Range Interpretation Comments TOTAL PROTEIN (test code 7.5 GM/DL 5.0-8.0 N Per formed by = PROT) 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 [facility] ALBUMIN (test code = [...] 65 UNITS/L 25-125 N LYNDSEY) BASIC METABOLIC [id number] 16:07:00 Test Item Value Reference Range Interpretation [...] POCGLU) 96 MG/DL - XR CHEST 1 [id number] 00:00:00 [facility] 1970 Sex: MFAX: Steve Urias MD [phone] [place]: [place] St: PRE Name: DORA JOSEPH FSED : 1970 Age/S: 51/M [address] [facility]. Unit #: [id number] Loc: [place] [address] Phys: Steve Urias MD Acct: [id number] Dis Date: Status: PRE ER PHONE #: Exam Date: 06/27/2021 2421 FAX #: Reason: Abdominal PainEXAMS: CPT CODE: [id number] XR CHEST 1 V 17117 PROCEDURE INFORMATION: Exam: XR Chest Exam date [...] diaphragm. No acute cardiopulmonary findings otherwise.. at 5851 Reported and signed by: Андрей Mar M.D. CC: Steve Urias MD Technologist: RT Alanna(Esperanza)(CT) Trnscrd Date/Time/By: 06/27/2021 (8442) : By: GarettJG42 Orig Print D/T: S: 06/27/2021 (9048) PAGE 1 Signed Report- CT ABD PELVIS [id number] 00:00:[address] [facility] SHANA LAKEName: DORA JOSEPH : 1970 Sex: MName: DORA JOSEPH FSED : 1970 Age/S: 51 / M [address] [facility] Unit #: [id number] Loc: [place] [address] Phys: Steve Urias MD Acct: [id number] Dis Date: Status: REG ER PHONE #: Exam Date: 06/27/2021 1626 FAX #: Reason: pain in region of colostomy EXAMS: CPT CODE: [id number] CT ABD PELVIS W/CONT 37860 PROCEDURE INFORMATION: Exam: CT Abdomen And Pelvis [...] containing hernia is present is present with il eostomy prolapse. No small bowel dilatation is present to suggest associated intestinal obstruction.The Aaron pouch has an unremarkable CT appearance. [...] : 1970 Age/S: 51 / M [address] [facility] Unit #: [id number] Loc: [place] [address] Phys: Steve Urias MD Acct: [id number] Dis Date: Status: REG ER PHONE #: Exam Date: 06/27/2021 1621 FAX #: Reason: pain in region of colostomy EXAMS: CPT CODE: [id number] CT ABD PELVIS W/CONT 93393 <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 There is no evidence of associated intestinal obstruction. 2. No additional acute CT abnormalities of the abdomen or pelvis are identified. SL:131 at 1650 Reported and signed by: Marco Raman M.D. CC: Steve Urias MD Technologist:RT Alanna(R)(CT) CTDI: DLP: Trnscb Date/Time: 06/27/2021 (1649) [place] Orig Print D/T: S: 06/27/2021 (1649) PAGE 2 Signed ReportCBC W/AUTO [id number] 09:20:00 Test Item Value Reference Range Interpretation [...] (test code NO = MDIFF) CBC W/AUTO [id number] 08:59:00 Test Item Value Reference Range Interpretation [...] REQUIRED (test code = MDIFF) BASIC METABOLIC [id number] 08:21:00 Test Item Value Reference Range Interpretation [...] 8.4 mg/dL 8.0-10.5 N CA) BASIC METABOLIC [id number] 08:34:00 Test Item Value Reference Range Interpretation [...] 8.4 mg/dL 8.0-10.5 N CA) CBC W/AUTO [id number] 07:41:00 Test Item Value Reference Range Interpretation [...] = MDIFF) UA RFLX MICR CULT IF [id number] 10:10:00 Test Item Value Reference Range Interpretation [...] Suprapubic Pain Temperature > 100.4 FSpecimen Description: [facility] [id number] 04:13:00 Test Item Value Reference Range Interpretation [...] = 9.1 mg/dL 8.0-10.5 N CA) Coronavirus 2018 nCoV [id number] 22:03:00 Test Item Value Reference Range Interpretation Comments Coronavirus 2019 Negative Negative Performed b y certified nCoV Bedside (gear tester at [facility] Med code = CtrNegative res ults should [id number]) be treated as presumptive and, ifinconsis tent with clinical signs and symptoms or necessaryfor patient management, fifi uld be tested with an alternativemole cular assay. Negative result s do not preclude FHAN-HrS-7vsvbv tion and should not be u sed as the sole basis forp atient management deci sions. Negative result s should beconsidered in the context of a patient's recent exposures,histo ry, presence of clinical sig ns and symptoms consis tentwith COVID-19. CBC W/AUTO [id number] 21:11:00 Test Item Value Reference Range Interpretation [...] MX#) 0.6 k/mm3 0.1-0.8 N BASIC METABOLIC [id number] 19:00:00 Test Item Value Reference Range Interpretation [...] POCGLU) 92 MG/DL - CT ABD PELVIS [id number] 00:00:00 [facility] LAKEName: DORA JOSEPH : 1970 Sex: MName: DORA JOSEPH FSED : 1970 Age/S: 51 / M [address] [facility] Unit #: [id number] Loc: [place] [address] Phys: Marcello Benoit MD Acct: [id number] Dis Date: Status: REG ER PHONE #: Exam Date: 04/28/2021 4634 FAX #: Reason: epigastric and LLQ pain, R-sided colostomy EXAMS:CPT CODE: [id number] CT ABD PELVIS W/CONT 89496 PROCEDURE INFORMATION: Exam: CT Abdomen And Pelvis [...] hydronephrosis. Stomach and bowel: The stomach is unremarkable.There is subjective mucosal prominence/wall thickening throughout the small bowel without pathologicdilatation. Interval subtotal colectomy with right lower quadrant ileostomy. Unremarkable Aaron'spouch. Appendix: No evidence of appendicitis. Intraperitoneal space: There is no free intraperitoneal fluid or air. No focal fluid collection. Vasculature: There is mild atherosclerotic calcification of the coronary arteries. The aorta demonstrates mild atherosclerotic calcification. Lymph nodes: Unremarkable. No enlarged lymph nodes. Urinary bladder: Urinary bladder is contracted otherwise unremarkable. PAGE 1 Signed Report (CONTINUED) Name: DORA JOSEPH MARIA ISABEL Castro FSED : 1970 Age/S: 51 / M [address] [facility] Unit #: [id number] Loc: [place] [address] Phys: Marcello Benoit MD Acct: [id number] Dis Date: Status: REG ER PHONE #: Exam Date: 04/28/20211913 FAX #: Reason: epigastric and LLQ pain, R-sided colostomy EXAMS: CPT CODE: [id number] CT ABD PELVIS W/CONT 60478 <Continued> Reproductive: Unremarkable as visualized. Bones/joints: Unremarkable. No acute fracture. Soft tissues: Unremarkable. IMPRESSION: 1. 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 2. Mild long segment bowel wall thickening/mucosal prominence compatible with an enteritis. No evidence for obstruction. at 1956 Reported and signed by: Hector Nichols M.D. CC: Marcello Benoit MD Technologist:Stephanie Albrecht, RT(R)(CT) CTDI: DLP: Trnscb Date/Time: 04/28/2021 (1955) t.SDR.KWL Orig Print D/T: S: 04/28/2021 (1955) PAGE 2 Signed Report- XR ABDOMEN 1 [id number] 12:53:00 Name: DORA JOSPEH [facility] : 1970 Age/S: 50 / M [address] Unit #: [id number] Loc: [place] [address] 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 OUTSOLE SKIVER Acct: [id number] Dis Date: Status: ADM IN PHONE#: [phone] Exam Date: 02/25/2020 1036 FAX #: Reason: abdominal distention EXAMS: CPT: [id number] XR ABDOMEN 1 V 59167 Fluoro Time: DAP (Gy m2): Air Kerma [...] PAGE 1 Signed Report Name: DORA JOSEPH [facility] : 1970 Age/S: 50 / M [address] Unit #: [id number] Loc: [place] [address] 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 Acct: [id number] Dis Date: Status: ADM IN PHONE #: [phone] Exam Date: 02/25/2020 1036 FAX #: Reason: abdominal distention EXAMS: CPT: [id number] XR ABDOMEN 1 V 98512 Fluoro Time: DAP (Gy m2): Air Kerma (mGy): <Continued> Technologist: Nichole Dill RT(R) Trnscb Date/Time: 02/25/2020 (9783) t.FLEXR.EFM1 Orig Print D/T: S: 02/25/2020 (7179) PAGE 2 Signed Report COMPREHENSIVE METABOLIC [id number] 08:20:00 Test Item Value Reference Range Interpretation [...] 50-136 L TOTAL (test code = ALKP) [id number] 08:20:00 Test Item Value Reference Range Interpretation Comments MAGNESIUM (test code = MAG) 2.2 MG/DL 1.8-2.4 N THYROID STIMULATING [id number] 08:20:00 Test Item Value Reference Range Interpretation Comments THYROID STIMULATING HORMONE 5.430 mcIU/ML 0.340-4.820 H (test code = TSH) CBC W/AUTO [id number] 07:55:00 Test Item Value Reference Range Interpretation [...] N NRBC#) UA RFLX MICR CULT IF [id number] 12:29:00 Test Item Value Reference Range Interpretation [...] culture: Suprapubic PainUA RFLX MICR CULT IF [id number] 12:29:00 Test Item Value Reference Range Interpretation [...] for culture: Suprapubic PainCOVID 19 Asymptomatic IH [id number] 22:09:00 Test Item Value Reference Range Interpretation [...] tent with COVID-19. - CT ABD PELVIS [id number] 21:10:00 Name: DORA JOSEPH [facility] : 1970 Age/S: 50 / M [address] Unit #: [id number] Loc: [place] [address] Phys: O'Reilly,Evin MD Acct: [id number] Dis Date: Status: REG ER PHONE #: [phone] Exam Date: 02/23/20202047 FAX #: Reason: diffuse abdomen pain and distention EXAMS: CPT: [id number] CT ABD PELVIS W/CONT 05337 EXAM: - CT ABD PELVIS W/CONT LOCATION: [...] 1 Signed Report (CONTINUED) Name: DORA JOSEPH [facility] : 1970 Age/S: 50 / M [address] [facility] [address] Unit #: [id number] Loc: [place] [address] Phys: Evin Castellanos MD Acct: [id number] Dis Date: Status: REG ER PHONE #: [phone] Exam Date: 02/23/20202047 FAX #: Reason: diffuse abdomen pain and distention EXAMS: CPT: [id number] CTABD PELVIS W/CONT 38659 <Continued> CT. No bowel wall thickening or [...] by: Marybel José M.D. CC: Susana Meza HEAD OF PHYSICS; Carl Luevano MD Technologist:Rudy Zuniga, RT(R)(CT)(MRI) CTDI: DLP: Trnscb Date/Time: 02/23/2020 (2109) t.FLEXR.DT43Qpyv Print D/T: S: 02/23/2020 (2112) PAGE 2 Signed Report- XR CHEST 1 [id number] 21:03:00 Name: DORA JOSEPH [facility] : 1970 Age/S: 50 / M [address] Unit #: [id number] Loc: [place] [address] Phys: Evin Castellanos MD Acct: [id number] Dis Date: Status: REG ERPHONE #: [phone] Exam Date: 02/23/20202055 FAX #: Reason: Code Sepsis EXAMS: CPT: [id number] XR CHEST 1 V 03196 Fluoro Time: DAP (Gy m2): Air Kerma [...] by: Monica Quijano MD CC: Susana Meza HEAD OF PHYSICS; Carl Luevano MD PAGE 1 Signed Report Name: DORA JOSEPH [facility] : 1970 Age/S: 50 / M [address] Unit #: [id number] Loc: [place] [address] Phys: Evin Castellanos MD Acct: [id number] Dis Date: Status: REG ER PHONE #: [phone] Exam Date: 02/23/20202055 FAX #: Reason: Code Sepsis EXAMS: CPT: [id number] XR CHEST 1 V 79694 Fluoro Time: DAP (Gy m2): Air Kerma (mGy): <Continued> Technologist: Rudy Zuniga RT(R)(CT)(MRI) Trnscb Date/Time: 02/23/2020 (2102) t.FELXR.CLW Orig Print D/T:S: 02/23/2020 (2106) PAGE 2 Signed ReportBASIC METABOLIC [...] 8.5-10.1 N Completed by Nursing: NOHEPATIC FUNCTION [id number] 20:02:00 Test Item Value Reference Range Interpretation [...] N code = ALKP) Completed by Nursing: [id number] 20:02:00 Test Item Value Reference Range Interpretation Comments LIPASE (test code = LIP) 97 Unit/L 114-286 L Completed by Nursing: [id number] 20:02:00 Test Item Value Reference Range Interpretation [...] brittani yby method. Completed by Nursing: NOLACTIC [id number] 19:59:00 Test Item Value Reference Range Interpretation Comments LACTIC ACID (test code = LACT) 1.2 mmol/L 0.4-2.0 N CBC W/AUTO [id number] 19:46:00 Test Item Value Reference Range Interpretation [...] CRITERIA = MDIFF) - XR ABDOMEN 2 [id number] 06:22:00 Name: DORA JOSEPH [facility] : 1970 Age/S: 50 / M [address] [facility] Unit #: [id number] Loc: [place] [address] Phys: León Robertson MD Acct: [id number] Dis Date: Status: ADM INPHONE #: [phone] Exam Date: 02/19/2020 0440 FAX #: Reason: megacolon EXAMS: CPT: [id number] XRABDOMEN 2 V 52724 Fluoro Time: DAP (Gy m2): Air Kerma [...] and signed by: David Rodríguez M.D. CC: León Robertson MD; Coco Nova MD PAGE 1 Signed Report Name: DORA JOSEPH [facility] : 1970 Age/S: 50 / M [address] [facility] Unit #: [id number] Loc: [place] [address] Phys: León Robertson MD Acct: [id number] Dis Date: Status: ADM IN PHONE #: [phone] Exam Date: 02/19/2020 0440 FAX #: Reason: megacolon EXAMS:CPT: [id number] XR ABDOMEN 2 V 61705 Fluoro Time: DAP (Gy m2): Air Kerma (mGy): <Continued> Technologist: Carrie Barnett, RT(R)(CT) Trnscb Date/Time: 02/19/2020 (0622) tJUDSONAL7 Orig Print D/T: S: 02/19/2020 (0625) PAGE 2 Signed ReportBASIC METABOLIC [id number] 05:52:00 Test Item Value Reference Range Interpretation [...] CA) 8.5 MG/DL 8.5-10.1 N CBC W/AUTO [id number] 05:40:00 Test Item Value Reference Range Interpretation [...] NO DIFF/SCN CRITERIA = MDIFF) BASIC METABOLIC [id number] 06:52:00 Test Item Value Reference Range Interpretation [...] CA) 8.3 MG/DL 8.5-10.1 L CBC W/AUTO [id number] 06:39:00 Test Item Value Reference Range Interpretation [...] DIFF/SCN CRITERIA = MDIFF) Coronavirus 2019 nCoV [id number] 05:35:00 Test Item Value Reference Range Interpretation Comments Coronavirus 2019 nCoV Negative NEGATIVE Per sindi cruz, Bedside (test code = negativ e results [...] nd symptoms consis tent with COVID-19. - XR ABDOMEN 1 [id number] 07:32:00 Name: DORA JOSEPH [facility] : 1970 Age/S: 49 / M [address] Unit #: [id number] Loc: [place] [address] Phys: Jay Mayo MD Acct: [id number] Dis Date: Status: ADMIN PHONE #: [phone] Exam Date: 01/10/2020 0658 FAX #: Reason: follow up colonic ileus EXAMS: CPT: [id number] XR ABDOMEN 1 V 02294 Fluoro Time: DAP (Gy m2): Air Kerma [...] PAGE 1 Signed Report Name: DORA JOSEPH [facility] : 1970 Age/S: 49 / M [address] Unit #: [id number] Loc: [place] [address] Phys: Jay Mayo Acct: [id number] Dis Date: Status: ADM IN PHONE #: [phone] Exam Date: 01/10/2020 0658 FAX #: Reason: follow up colonic ileus EXAMS: CPT: [id number] XR ABDOMEN 1 V 09267 Fluoro Time: DAP (Gy m2): Air Kerma (mGy): <Continued> Technologist: Alexander De Leon RT(R)(CT) Trnscb Date/Time: 01/10/2020(0732) tDARWINRLisethCB5 Orig Print D/T: S: 01/10/2020 (0785) PAGE 2 Signed ReportCOMPREHENSIVE METABOLIC [id number] 05:56:00 Test Item Value Reference Range Interpretation [...] TOTAL (test code = ALKP) CBC W/AUTO [id number] 05:42:00 Test Item Value Reference Range Interpretation [...] = NO DIFF/SCN CRITERIA MDIFF) BASIC METABOLIC [id number] 06:59:00 Test Item Value Reference Range Interpretation [...] code = CA) 8.5 MG/DL 8.5-10.1 N [id number] 06:59:00 Test Item Value Reference Range Interpretation Comments MAGNESIUM (test code = MAG) 2.2 MG/DL 1.8-2.4 PROTHROMBIN [id number] 06:39:00 Test Item Value Reference Range Interpretation Comments PT PATIENT (test code = PTP) 13.1 SECONDS 9.3-12.9 H INTERNATIONAL NORMAL RATIO 1.16 INR Unit 0.8-1.2 N (test code = INR) CBC W/AUTO [id number] 06:22:00 Test Item Value Reference Range Interpretation [...] DIFF/SCN CRITERIA MDIFF) - XR ABDOMEN 1 [id number] 05:39:00 Name: DORA JOSEPH [facility] : 1970 Age/S: 49 / M [address] Unit #: [id number] Loc: [place] [address] 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 OUTSOLE SKIVER Acct: [id number] Dis Date: Status: ADM IN PHONE #: [phone] Exam Date: 01/09/2020 0557 FAX #: Reason: colonic ileus/obstruction EXAMS: CPT: [id number] XR ABDOMEN 1 V 53932 Fluoro Time: DAP (Gy m2): Air Kerma [...] PAGE 1 Signed Report Name: DORA JOSEPH [place] : 1970 Age/S: 49 / M [address] Unit #: [id number] Loc: [place] [address] 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 Acct: [id number] Dis Date: Status: ADM IN PHONE #: [phone] Exam Date: 01/09/2020522 FAX #: Reason: colonic ileus/obstruction EXAMS: CPT: [id number] XR ABDOMEN 1 V 37507 Fluoro Time: DAP (Gy m2): Air Kerma (mGy): <Continued> Technologist: Carrie Barnett, RT(R)(CT) Trnscb Date/Time: 01/09/2020 (0539) t.FC Orig Print D/T: S: 01/09/2020 (0542) PAGE 2 Signed ReportCoronavirus 2018 nCoV [id number] 22:38:00 Test Item Value Reference Range Interpretation Comments Coronavirus 2019 nCoV Bedside (test Negative Negative code = [id number]) Emergent procedure? YESCoronavirus 2018 nCoV [id number] 22:38:00 Test Item Value Reference Range Interpretation Comments Coronavirus 2019 nCoV Bedside (test Negative Negative code = [id number]) Emergent procedure? YESBASIC METABOLIC [id number] 18:42:00 Test Item Value Reference Range Interpretation [...] CA) 8.5 MG/DL 8.5-10.1 N CBC W/AUTO [id number] 10:50:00 Test Item Value Reference Range Interpretation [...] = NO DIFF/SCN CRITERIA MDIFF) COMPREHENSIVE METABOLIC [id number] 10:46:00 Test Item Value Reference Range Interpretation [...] 50-136 N TOTAL (test code = ALKP) [id number] 10:46:00 Test Item Value Reference Range Interpretation Comments MAGNESIUM (test code = MAG) 2.6 MG/DL 1.8-2.4 H COMPREHENSIVE METABOLIC [id number] 10:34:00 Test Item Value Reference Range Interpretation [...] TOTAL (test Unit/L 50-136 code = ALKP) [id number] 10:34:00 Test Item Value Reference Range Interpretation Comments MAGNESIUM (test code = MAG) MG/DL 1.8-2.4 - XR ABDOMEN 1 [id number] 08:28:00 Name: DORA JOSEPH [facility] : 1970 Age/S: 49 / M [address] Unit #: [id number] Loc: [place] [address] Phys: Yas Edwards MD Acct: [id number] Dis Date: Status: ADM IN PHONE #: [phone] Exam Date: 01/08/2020 0510 FAX #: Reason: ileus EXAMS: CPT: [id number] XR ABDOMEN 1 T22521 Fluoro Time: DAP (Gy m2): Air Kerma [...] PAGE 1 Signed Report Name: DORA JOSEPH [place] : 1970 Age/S: 49 / M [address] Unit #: [id number] Loc: [place] [address] Phys: Yas Edwards [facility] [id number] Dis Date: Status: ADM IN PHONE #: [phone] Exam Date: 01/08/2020 0572 FAX #: Reason: ileus EXAMS: CPT: [id number] XR ABDOMEN 1 V 96800 Fluoro Time: DAP (Gy m2): Air Kerma (mGy): &l t;Continued> Technologist: Carrie Barnett, RT(R)(CT); ... Trnscb Date/Time: 01/08/2020 (827) t.SDR.JTM Orig Print D/T: S: 01/08/2020 (0831) PAGE 2 Signed ReportCOMPREHENSIVE METABOLIC [id number] 07:08:00 Test Item Value Reference Range Interpretation [...] 50-136 L TOTAL (test code = ALKP) [id number] 07:08:00 Test Item Value Reference Range Interpretation Comments MAGNESIUM (test code = MAG) 1.3 MG/DL 1.8-2.4 L COMPREHENSIVE METABOLIC [id number] 05:16:00 Test Item Value Reference Range Interpretation [...] 50-136 L TOTAL (test code = ALKP) [id number] 05:16:00 Test Item Value Reference Range Interpretation Comments MAGNESIUM (test code = MAG) 1.3 MG/DL 1.8-2.4 L CBC W/AUTO [id number] 05:02:00 Test Item Value Reference Range Interpretation [...] (test code = NO DIFF/SCN CRITERIA MDIFF) [id number] 16:51:00 Test Item Value Reference Range Interpretation Comments MAGNESIUM (test code = MAG) 2.3 MG/DL 1.8-2.4 N FE W/TOTAL IRON BINDING CAP.2020-01-07 16:51:00 Test Item Value Reference Range Interpretation Comments SERUM IRON (test code = IRON) 38 mcG/DL 65-175 L TOTAL IRON BINDING CAPACITY (test 322 mcG/DL 250-450 N code = TIBC) IRON SATURATION (test code = 12 % calc 12-57 N FESAT) [id number] 16:51:00 Test Item Value Reference Range Interpretation Comments FERRITIN (test code = DAVID) 17.6 NG/ML 5.0-323.0 N CALCIUM [id number] 16:50:00 Test Item Value Reference Range Interpretation Comments CALCIUM IONIZED (test code = NAVEED) 1.12 mmol/L 1.12-1.32 N - XR ABDOMEN 1 [id number] 10:29:00 Name: DORA JOSEPH [facility] : 1970 Age/S: 49 / M [address] Unit #: [id number] Loc: [place] [address] Phys: Verona Frost PA-C Acct: [id number] Dis Date: Status: ADM IN PHONE #: [phone] Exam Date: 01/07/2020 0712 FAX #: Reason: reassess SBO EXAMS: CPT: [id number] XR ABDOMEN 1 V 00682 Fluoro Time: DAP (Gy m2): Air Kerma [...] Signed Report [facility]: [facility] [place] [facility] 1970 Age/S: 49 / M [address] Unit #: [id number] Loc: [place] [address] Phys: Verona Frost PA-C Acct: [id number] Dis Date: Status: ADM IN PHONE #: [phone] Exam Date: 01/07/2020 07 FAX #: Reason: reassess SBO EXAMS: CPT: [id number] XR ABDOMEN 1 V 05778 Fluoro Time: DAP (Gy m2): Air Kerma (mGy): <Continued> Technologist: Alexander De Leon RT(R)(CT) Trnscb Date/Time: 01/07/2020 (9519) tDARWINR.AGV Orig Print D/T: S: 01/07/2020 (3628) PAGE 2 Signed ReportBASIC METABOLIC PANEL 2020-01-07 [...] CA) 5.4 MG/DL 8.5-10.1 LL CBC W/AUTO [id number] 06:49:00 Test Item Value Reference Range Interpretation [...] = NO DIFF/SCN CRITERIA MDIFF) COMPREHENSIVE METABOLIC [id number] 06:10:00 Test Item Value Reference Range Interpretation [...] TOTAL (test code = ALKP) CBC W/AUTO [id number] 05:52:00 Test Item Value Reference Range Interpretation [...] DIFF/SCN CRITERIA MDIFF) - XR ABDOMEN 1 [id number] 01:30:00 Name: DORA JOSEPH [facility] : 1970 Age/S: 49 / M [address] Unit #: [id number] Loc: [place] [address] Phys: Ted Coleman HEAD OF PHYSICS Acct: [id number] Dis Date: Status: ADM IN PHONE #: [phone] Exam Date: 01/06/2020 0100 FAX #: Reason: NG Tube Placement Verification EXAMS: CPT: [id number] XR ABDOMEN 1 V 21914 Fluoro Time: DAP (Gy m2): Air Kerma [...] M.D. CC: Mark Perea MD; Ted Coleman HEAD OF PHYSICS PAGE 1 Signed Report Name: DORA JOSEPH [facility] : 1970 Age/S: 49 / M [address] Unit #: [id number] Loc: [place] [address] Phys: Ted Coleman HEAD OF PHYSICS Acct: [id number] Dis Date: Status: ADM IN PHONE #: [phone] Exam Date: 01/06/2020 0100 FAX #: Reason: NG Tube Placement Verification EXAMS: CPT: [id number] XR ABDOMEN 1 V 42341 Fluoro Time: DAP (Gy m2): Air Kerma (mGy): <Continued> Technologist: RT Tatum(R) Trnakb Date/Time: 01/06/2020 (129) tJARED.FC Orig Print D/T: S: 01/06/2020 (132) PAGE 2 Signed Report- CT ABD PELVIS W/O [id number] 19:42:00 [place]: St: REG -- Name: DORA JOSEPH [facility] : 1970 Age/S: 49/M [address] [facility] Unit: [id number] [place]: [place]: [place] [address] Acct: [id number] Dis Date: Status: REG ER PHONE #: [phone] Exam Date: 12/13/20191924 FAX #: [phone] Reason: pain EXAMS: CPT CODE: [id number] CT ABD PELVIS W/O CONT 15504 Examination: CT scan abdomen and pelvis without [...] abdomen and pelvis. at 1942 Reported and signedby: SHANEL EDWARDS CC: Technologist: SUJATA ALMANZAR Trnscrd [...] code = CA) 8.6 mg/dl 8.0-10.5 N [id number] 18:49:00 Test Item Value Reference Range Interpretation Comments LIPASE (test code = LIP) 97 Units/L 65.0-230.0 N CBC W/AUTO [id number] 18:38:00 Test Item Value Reference Range Interpretation [...] K/mm3 0.0-0.2 N - XR CHEST 1 [id number] 18:36:00 [place]: St: PRE -- Name: DORA JOSEPH [facility] : 1970 Age/S: 49/M [address] [facility] Unit #: [id number] Loc: [place], [place] Phys: [place] [address] Acct: [id number] Dis Date: Status: PRE ER PHONE #: [phone] Exam Date: 12/13/2019 1822 FAX #: [phone] Reason: SOB EXAMS: CPT CODE: [id number] XR CHEST 1 V 89940 Examination: One view chest x-ray Location code: H60 Comparison: None Discussion: Clinical history is remarkable for shortness of breath and weakness. Heart is normal in size. Lungs are clear of consolidating infiltrates. No effusions identified. There is significant distention of the colon. Impression: 1. Normal one view chest x-ray. 2. Colonic distention. at 1836 Reported and signed by: SHANEL EDWARDS CC:Technologist: AMBER GENTILE Trnakrd Date/Time/By: 12/13/2019 (1835) : By: GarettVR5 PAGE 1 SignedReport [place]: St: PRE ---- Name: DORA JOSEPH [facility] : 1970 Age/S: 49/M [address] Unit #: [id number] Loc: [place], [place]: [place] [address] Acct: [id number] Dis Date: Status: PRE ER PHONE #: [phone] Exam Date: 12/13/20191821 FAX #: [phone] Reason:SOB EXAMS: CPT CODE: [id number] XR CHEST 1 V 65989 (Continued) Orig Print D/T: S: 12/13/2019 (1838)PAGE [...] Received comment: User comments: Slide comments:BASIC METABOLIC [id number] 07:34:00 Test Item Value Reference Range Interpretation [...] S NOT APPLICABLE FOR DIALYSIS PATIEN TS. [id number] 07:26:00 Test Item Value Reference Range Interpretation Comments PHOSPHORUS (BEAKER) (test code = 3.1 mg/dL 2.3-4.7 604) [id number] 07:26:00 Test Item Value Reference Range Interpretation Comments MAGNESIUM (BEAKER) (test code = 1.6 mg/dL 1.6-2.6 627) RAD, ABDOMEN/KUB, 1 VIEW [id number] 07:04:00Reason for exam:->ileusFINAL REPORT Abdomen , one [...] MDReport Verified Date/Time: 04/03/2019 07:04:46 Reading Location: [facility] C013X Ortho Consult Reading Room BASIC METABOLIC [id number] 06:47:00 Test Item Value Reference Range Interpretation [...] code = 413) URINALYSIS WITH MICROSCOPIC IF [id number] 22:01:00 Test Item Value Reference Range Interpretation [...] 463) SOURCE(BEAKER) (test code = 2795) URINALYSIS [id number] 22:01:00 Test Item Value Reference Range Interpretation Comments RBC UA (BEAKER) (test code = 519) 18 /HPF WBC UA (BEAKER) (test code = 520) 1 /HPF CALCIUM OXALATE CRYSTALS (BEAKER) Occasional (test code = 518) [id number] 05:49:00 Test Item Value Reference Range Interpretation Comments PHOSPHORUS (BEAKER) (test code = 2.5 mg/dL 2.3-4.7 604) [id number] 05:49:00 Test Item Value Reference Range Interpretation Comments MAGNESIUM (BEAKER) (test code = 1.7 mg/dL 1.6-2.6 627) BASIC METABOLIC [id number] 05:49:00 Test Item Value Reference Range Interpretation [...] (BEAKER) (test code = 413) BASIC METABOLIC [id number] 06:19:00 Test Item Value Reference Range Interpretation [...] S NOT APPLICABLE FOR DIALYSIS PATIEN TS. [id number] 06:10:00 Test Item Value Reference Range Interpretation Comments MAGNESIUM (BEAKER) 1.8 mg/dL 1.6-2.6 Specimen slightly (test code = 627) hemolyzed [id number] 06:10:00 Test Item Value Reference Range Interpretation [...] (BEAKER) (test code = 413) BASIC METABOLIC [id number] 04:57:00 Test Item Value Reference Range Interpretation [...] S NOT APPLICABLE FOR DIALYSIS PATIEN TS. [id number] 04:55:00 Test Item Value Reference Range Interpretation Comments PHOSPHORUS (BEAKER) (test code = 2.6 mg/dL 2.3-4.7 604) [id number] 04:55:00 Test Item Value Reference Range Interpretation Comments MAGNESIUM (BEAKER) (test code = 1.8 mg/dL 1.6-2.6 627) CT, [id number] 14:16:00FINAL REPORT TECHNIQUE: CT of the abdomen [...] Signed: Marsha Kim MDReport Verified Date/Time: 03/29/2019 14:16:01Reading Location: [facility] C013Y CT Body Reading Room , ABDOMEN/KUB, 1 VIEW [id number] 10:23:00Reason for exam:->evaluate ileusFINAL REPORT Technique: Supine [...] MDReport Verified Date/Time: 03/29/2019 10:23:29 Reading Location: [facility] Reading Room CBC (HEMOGRAM ONLY)2019-03-29 [...] WBC 0-0 (BEAKER) (test code = 413) [id number] 06:20:00 Test Item Value Reference Range Interpretation Comments PHOSPHORUS (BEAKER) (test code = 2.6 mg/dL 2.3-4.7 604) [id number] 06:20:00 Test Item Value Reference Range Interpretation Comments MAGNESIUM (BEAKER) (test code = 2.0 mg/dL 1.6-2.6 627) BASIC METABOLIC [id number] 06:20:00 Test Item Value Reference Range Interpretation [...] TS. RAD, ABDOMEN SERIES W/ UPRIGHT PA [id number] 22:18:00Reason for exam:- >eval ileusFINAL REPORT CLINICAL [...] further evaluation with CT abdomen pelvis. Signed: Mari Bethae Verified Date/Time: 03/28/2019 22:18:50 RAD, ABDOMEN/KUB, 1 VIEW [id number] 11:23:00Reason for exam:->abdominal distensionShould this be performed [...] No focal transition point is identified. Signed: Wendi Cruz MDReport Verified Date/Time: 03/28/2019 11:23:34 Reading Location: [facility] Radiology Reading Room TISSUE [id number] 09:00:00Surgical Pathology Report Case: [id number] Authorizing Provider: Graciela Garrison MD Collected: 03/25/2019 1133 Ordering Location: [facility] PERIOPERATIVE Received: 03/25/2019 1527 SERVICES Pathologist: [...] NEGATIVEFOR MALIGNANCY Signing Pathologist Direct Phone Line: [phone] signed by Jordan Celaya MD on 03/28/2019 at 9:00 [id number] and postop diagnosis: ileostomy statusA. End ileostomy; [...] nodes are not identified in the mesentery. Gas Roller Operator sections are submitted. Section code: A, guest services representative section of each end of first mentioned segment of small bowel; A2, guest services representative of first mentioned segment of small bowel mucosa; A3, area of hemorrhagic mesentery of second mentioned segment of mucosa; A4, guest services representative of hemorrhagic mucosa at open end of second portion of small bowel; A5, guest services representative of stapled margin from second mentioned [...] 0.2 cm. No gross lesions are identified. Gas Roller Operator sections are submitted. Section code: B1, proximal margin en face and tip; B2, guest services representative cross section. CG/pl Performed.[id number] 06:23:00 Test Item Value Reference Range Interpretation Comments PHOSPHORUS (BEAKER) (test code = 2.7 mg/dL 2.3-4.7 604) [id number] 06:23:00 Test Item Value Reference Range Interpretation Comments MAGNESIUM (BEAKER) (test code = 1.9 mg/dL 1.6-2.6 627) BASIC METABOLIC [id number] 06:23:00 Test Item Value Reference Range Interpretation [...] S NOT APPLICABLE FOR DIALYSIS PATIEN TS. [id number] 08:20:00 Test Item Value Reference Range Interpretation Comments PHOSPHORUS (BEAKER) (test code = 2.6 mg/dL 2.3-4.7 604) [id number] 08:20:00 Test Item Value Reference Range Interpretation Comments MAGNESIUM (BEAKER) (test code = 1.8 mg/dL 1.6-2.6 627) BASIC METABOLIC [id number] 08:20:00 Test Item Value Reference Range Interpretation [...] S NOT APPLICABLE FOR DIALYSIS PATIEN TS. [id number] 06:06:00 Test Item Value Reference Range Interpretation Comments PHOSPHORUS (BEAKER) (test code = 4.1 mg/dL 2.3-4.7 604) [id number] 06:06:00 Test Item Value Reference Range Interpretation Comments MAGNESIUM (BEAKER) (test code = 1.8 mg/dL 1.6-2.6 627) BASIC METABOLIC [id number] 06:06:00 Test Item Value Reference Range Interpretation [...] S NOT APPLICABLE FOR DIALYSIS PATIEN TS. [id number] 06:03:00 Test Item Value Reference Range Interpretation Comments PHOSPHORUS (BEAKER) (test code = 4.2 mg/dL 2.3-4.7 604) [id number] 06:03:00 Test Item Value Reference Range Interpretation Comments MAGNESIUM (BEAKER) (test code = 2.0 mg/dL 1.6-2.6 627) BASIC METABOLIC [id number] 06:03:00 Test Item Value Reference Range Interpretation [...] WBC 0-0 (BEAKER) (test code = 413) [id number] 05:52:00 Test Item Value Reference Range Interpretation Comments PHOSPHORUS (BEAKER) (test code = 4.2 mg/dL 2.3-4.7 604) [id number] 05:52:00 Test Item Value Reference Range Interpretation Comments MAGNESIUM (BEAKER) (test code = 1.9 mg/dL 1.6-2.6 627) BASIC METABOLIC [id number] 05:52:00 Test Item Value Reference Range Interpretation [...] S NOT APPLICABLE FOR DIALYSIS PATIEN TS. [id number] 06:51:00 Test Item Value Reference Range Interpretation Comments PHOSPHORUS (BEAKER) (test code = 4.3 mg/dL 2.3-4.7 604) [id number] 06:51:00 Test Item Value Reference Range Interpretation Comments MAGNESIUM (BEAKER) (test code = 2.0 mg/dL 1.6-2.6 627) BASIC METABOLIC [id number] 06:51:00 Test Item Value Reference Range Interpretation [...] 0-0 (BEAKER) (test code = 413) TISSUE [id number] 11:50:00Surgical Pathology Report Case: [id number] Authorizing Provider: Mela Larson MD Collected: 03/18/2019 1827 Ordering Location: [facility] Received: 03/21/2019 0823 SERVICES Pathologist: Jordan Celaya MD Specimen: Small Bowel, NOS A. SMALL BOWEL, ILEOSTOMY PROLAPSE, TAKEDOWN:- ANASTOMOSIS SITE WITH ACTIVE CHRONIC INFLAMMATION AND FOCAL ISCHEMIC CHANGES - MUCOSAL RESECTION MARGINS, NEGATIVE FOR MALIGNANCY - ONE BENIGN LYMPH NODE (0/1) - NEGATIVE FOR DYSPLASIA OR MALIGNANCY Signing Pathologist Direct Phone Line: [phone] signed by Jordan Celaya MD on 03/22/2019 at 11:50 [id number] of ileostomyReceived in a container labeled "small [...] 0.5 to 1.2 cm in greatest dimension. Gas Roller Operator sections are submitted as follows: A1-A2, mucosal resection margin, en face; A3-A6, guest services representative sections of the possible ostomy stump; A7-A11, serial guest services representative sections from mucosal resec tion margin to the possible ostomy stump; A12, two lymph nodes. TH/plPerformed. [id number] 06:58:00 Test Item Value Reference Range Interpretation Comments PHOSPHORUS (BEAKER) (test code = 3.8 mg/dL 2.3-4.7 604) [id number] 06:58:00 Test Item Value Reference Range Interpretation Comments MAGNESIUM (BEAKER) (test code = 2.0 mg/dL 1.6-2.6 627) BASIC METABOLIC [id number] 06:58:00 Test Item Value Reference Range Interpretation [...] PATIEN TS. CBC W/PLT COUNT & AUTO [id number] 05:42:00 Test Item Value Reference Range Interpretation [...] PERCENT (BEAKER) (test code = 2801) [place], [id number] 17:42:00Reason for exam:->evaluate for colon stricture as [...] Lopez Verified Date/Time: 03/21/2019 17:42:21 Reading Location: [facility] C013X Ortho Consult Reading Room [id number] 03:58:00 Test Item Value Reference Range Interpretation Comments PHOSPHORUS (BEAKER) (test code = 3.0 mg/dL 2.3-4.7 604) [id number] 03:58:00 Test Item Value Reference Range Interpretation Comments MAGNESIUM (BEAKER) (test code = 2.0 mg/dL 1.6-2.6 627) BASIC METABOLIC [id number] 03:58:00 Test Item Value Reference Range Interpretation [...] PATIEN TS. CBC W/PLT COUNT & AUTO [id number] 03:20:00 Test Item Value Reference Range Interpretation [...] (BEAKER) (test code = 2801) BASIC METABOLIC [id number] 06:26:00 Test Item Value Reference Range Interpretation [...] S NOT APPLICABLE FOR DIALYSIS PATIEN TS. [id number] 06:05:00 Test Item Value Reference Range Interpretation Comments PHOSPHORUS (BEAKER) (test code = 2.2 mg/dL 2.3-4.7 L 604) [id number] 06:05:00 Test Item Value Reference Range Interpretation Comments MAGNESIUM (BEAKER) (test code = 2.0 mg/dL 1.6-2.6 627) CBC W/PLT COUNT & AUTO [id number] 05:25:00 Test Item Value Reference Range Interpretation [...] 0-1 PERCENT (BEAKER) (test code = 2801) [id number] 04:31:00 Test Item Value Reference Range Interpretation Comments PHOSPHORUS (BEAKER) (test code = 3.7 mg/dL 2.3-4.7 604) [id number] 04:31:00 Test Item Value Reference Range Interpretation Comments MAGNESIUM (BEAKER) (test code = 1.9 mg/dL 1.6-2.6 627) BASIC METABOLIC [id number] 04:31:00 Test Item Value Reference Range Interpretation [...] PATIEN TS. CBC W/PLT COUNT & AUTO [id number] 04:15:00 Test Item Value Reference Range Interpretation [...] 0-1 PERCENT (BEAKER) (test code = 2801) [id number] 06:41:00 Test Item Value Reference Range Interpretation Comments PHOSPHORUS (BEAKER) (test code = 3.1 mg/dL 2.3-4.7 604) [id number] 06:41:00 Test Item Value Reference Range Interpretation Comments MAGNESIUM (BEAKER) (test code = 1.9 mg/dL 1.6-2.6 627) BASIC METABOLIC [id number] 06:41:00 Test Item Value Reference Range Interpretation [...] PATIEN TS. CBC W/PLT COUNT & AUTO [id number] 06:36:00 Test Item Value Reference Range Interpretation [...] PERCENT (BEAKER) (test code = 2801) CT, [id number] 17:04:00No PO contrastFINAL REPORT ABDOMINAL AND PELVIS [...] MDReport Verified Date/Time: 03/17/2019 17:04:19 Reading Location: [facility] B1 C013Y CT Body Reading Room XR ABDOMEN 2 [id number] 09:03:45XR ABDOMEN 2 VIEWSLOCATION: [id number]: Colstomy ProlapseCOMPARISON: Chest radiograph 04/15/2017, CT of [...] Nonspecific, nonobstructive bowel gas pattern.XR CHEST 1 [id number] 11:32:15EXAM: CHEST ONE VIEWINDICATION: Chest painCOMPARISON: None availableTECHNIQUE: AP view of the chest.FINDINGS: The cardiomediastinal silhouette is normal. The lungs are clearbilaterally. No pneumothoraxor pleural effusion is identified. Theosseous structures are unremarkable.IMPRESSION: No acute cardiopulmonary process.LOCATION: [id number] Type and [id number] 21:21:00 Test Item Value Reference Range Interpretation Comments ABO type (test code = ABO) O Rh Type (test code = RH) Positive Comprehensive Metabolic [id number] 20:36:00 Test Item Value Reference Range Interpretation [...] the National Kidney Foundation,http ://nkd ep.nih.gov Alcohol/Ethanol, [id number] 20:36:00 Test Item Value Reference Range Interpretation Comments Alcohol, Ethyl <0.01 g/dL 0.00-0.01 N Intoxicated 0 .080 g/dL (test code = ETOH) or more Prothrombin [id number] 20:00:00 Test Item Value Reference Range Interpretation Comments PT (test code = PT) 10.10 seconds 9.78-13.35 N INR (test code = INR) 0.88 Ratio 0.6-1.2 N Partial Thromboplastin [id number] 20:00:00 Test Item Value Reference Range Interpretation Comments aPTT (test code = PTT) 31.50 seconds 24.39-37.25 N CBC with [id number] 19:50:00 Test Item Value Reference Range Interpretation [...] code = ALYMPH) 2.2 K/cumm 0.5-4.6 N [place] Abs (test code = AMONO) 0.4 K/cumm 0.0-1.2 N Eos Abs (test code = AEOS) 0.17 K/cumm 0.00-0.74 N Baso Abs (test code = ABASO) 0.0 K/cumm 0.00-0.21 N 25217& PELVIS W/O [id number] 17:36:28CT ABDOMEN AND PELVIS WITHOUT CONTRAST.CLINICAL HISTORY: [...]
[2022-05-25 03:37] LABS: Absolute Lymphocytes (CBC) 1.9 K/uL (0.7-4.9); Hematocrit 30.5 % (39.6-49.0); Lymphocytes % 27.3 % (15.3-44.8); MCV 84.5 fL (80-100); MPV 7.1 fL (7.6-11.3); RBC Red Blood Cell Count 3.62 M/uL (4.33-5.43)
[2022-05-25 03:56] LABS: Albumin 3.7 g/dL (3.4-5.0); Bilirubin Total 0.3 mg/dL (0.2-1.0); Potassium 4.6 mmol/L (3.5-5.1); Protein, Total 7.3 g/dL (6.4-8.2)
--- NOTE | 2022-05-25 04:45 | ER ---
Nurse's Notes [facility] Name: Rico Mcneill Age: 52 yrs Sex: Male : 1970 Arrival Date: 05/25/2022 Time: 02:07 Bed 5 Private MD: Diagnosis: Abdominal pain, Generalized;Vomiting Presentation: 05/25 02:07 Chief complaint: Chief complaint: EMS states: "He has been having abdominal pain since tw5 this morning. He has is also complaining of N/V". Coronavirus screen: Vaccine status: Patient reports receiving the 2nd dose of the covid vaccine. Moderna. Ebola Screen: Patient negative for fever greater than or equal to 101.5 degrees Fahrenheit, and additional compatible Ebola Virus Disease symptoms Patient denies exposure to infectious person. Patient denies travel to an Ebola-affected area in the 21 days before illness onset. Initial Sepsis Screen: Does the patient meet any 2 criteria? Yes Does the patient have a suspected source of infection? No. Patient's initial sepsis screen is negative. Risk Assessment: Do you want to hurt yourself or someone else? Patient reports no desire to harm self or others. Onset of symptoms was May 24, 2022. 02:07 Method Of Arrival: EMS: [facility] tw5 02:07 Acuity: OCTAVIO 3 tw5 Triage Assessment: 02:09 General: Appears unkempt, Behavior is calm, cooperative, appropriate for age. Pain: tw5 Complains of pain in abdomen Pain currently is 9 out of 10 on a pain scale. GI: Reports nausea, vomiting. Historical: - Allergies: 02:09 NKDA; tw5 - PMHx: 02:09 ileostomy; tw5 - PSHx: 02:09 Small bowel resection with ileostomy; tw5 - Immunization history:: Flu vaccine is not up to date. - Social history:: Smoking status: Patient reports use of chewing tobacco. Screenin:57 Abuse screen: Denies threats or abuse. Nutritional screening: No deficits noted. vc1 Tuberculosis screening: No symptoms or risk factors identified. Fall Risk None identified. Assessment: 03:00 Reassessment: See triage assessmen. vc1 04:00 Reassessment: No changes from previously documented assessment. Patient and/or family vc1 updated on plan of care and expected duration. Pain level reassessed. Patient is alert, oriented x 3, equal unlabored respirations, skin warm/dry/pink. 05:00 Reassessment: No changes from previously documented assessment. Patient and/or family vc1 updated on plan of care and expected duration. Pain level reassessed. Patient is alert, oriented x 3, equal unlabored respirations, skin warm/dry/pink. 06:00 Reassessment: No changes from previously documented assessment. Patient and/or family vc1 updated on plan of care and expected duration. Pain level reassessed. Patient is alert, oriented x 3, equal unlabored respirations, skin warm/dry/pink. Patient states feeling better. Patient states symptoms have improved. Vital Signs: 02:07 BP 120 / 72; Pulse 80; Resp 18; Temp 98.3; Pulse Ox 100% ; Weight 65.77 kg; Height 6 tw5 ft. 1 in. (185.42 cm); Pain 9/10; 04:00 BP 104 / 78; Pulse 80; Resp 17; Pulse Ox 99% ; vc1 06:00 BP 96 / 74; Pulse 82; Resp 17; Pulse Ox 100% ; vc1 02:07 Body Mass Index 19.13 (65.77 kg, 185.42 cm) tw5 ED Course: 02:07 Patient arrived in ED. tw5 02:09 Triage completed. tw5 02:09 Arm band placed on right wrist. tw5 02:13 Barrie Hernandez, RN is Primary Nurse. ke1 02:15 Demario Soriano MD is Attending Physician. kdr 03:28 Inserted saline lock: 22 gauge in left wrist, using aseptic technique. Blood collected. ke1 07:09 No provider procedures requiring assistance completed. IV discontinued, intact, vc1 bleeding controlled, No redness/swelling at site. Pressure dressing applied. Administered Medications: 04:15 Drug: NS 0.9% 1000 ml Route: IV; Rate: 1 bolus; Site: left wrist; ke1 06:22 Drug: Pepcid (famotidine) 20 mg Route: IVP; Site: left wrist; ke1 06:22 Drug: Zofran (Ondansetron) 4 mg Route: IVP; Site: left wrist; ke1 Medication: 07:09 VIS not applicable for this client. vc1 Outcome: 04:45 Discharge ordered by . kdr 07:09 Discharged to home ambulatory. vc1 07:09 Condition: good 07:09 Discharge instructions given to patient, Instructed on discharge instructions, follow up and referral plans. Demonstrated understanding of instructions, follow-up care. 07:11 Patient left the ED. vc1 Signatures: Demario Soriano MD MD kdr Wood, Tiffany tw5 Alejandra Mack RN RN vc1 Barrie Hernandez RN RN ke1
--- NOTE | 2022-05-25 04:45 | EDPHYS ---
Physician Documentation [facility] Name: Rico Mcneill Age: 52 yrs Sex: Male : 1970 Arrival Date: 05/25/2022 Time: 02:07 Bed 5 Private MD: ED Physician Demario Soriano Historical: - Allergies: 05/25 02:09 NKDA; tw5 - PMHx: 02:09 ileostomy; tw5 - PSHx: 02:09 Small bowel resection with ileostomy; tw5 - Immunization history:: Flu vaccine is not up to date. - Social history:: Smoking status: Patient reports use of chewing tobacco. Vital Signs: 02:07 BP 120 / 72; Pulse 80; Resp 18; Temp 98.3; Pulse Ox 100% ; Weight 65.77 kg; Height 6 tw5 ft. 1 in. (185.42 cm); Pain 9/10; 04:00 BP 104 / 78; Pulse 80; Resp 17; Pulse Ox 99% ; vc1 06:00 BP 96 / 74; Pulse 82; Resp 17; Pulse Ox 100% ; vc1 02:07 Body Mass Index 19.13 (65.77 kg, 185.42 cm) tw5 MDM: 04:45 Patient medically screened. kdr 05/25 02:15 Order name: CBC with Diff kdr 05/25 02:15 Order name: CMP kdr 05/25 02:15 Order name: Lipase kdr 05/25 03:42 Order name: CBC with Automated Diff; Complete Time: 03:51 EDMS 05/25 03:56 Order name: Comprehensive Metabolic Panel; Complete Time: 04:43 EDMS 05/25 03:56 Order name: Lipase; Complete Time: 04:43 EDMS 05/25 02:15 Order name: IV Saline Lock; Complete Time: 03:28 kdr 05/25 02:15 Order name: Labs collected and sent; Complete Time: 03:28 kdr Administered Medications: 04:15 Drug: NS 0.9% 1000 ml Route: IV; Rate: 1 bolus; Site: left wrist; ke1 06:22 Drug: Pepcid (famotidine) 20 mg Route: IVP; Site: left wrist; ke1 06:22 Drug: Zofran (Ondansetron) 4 mg Route: IVP; Site: left wrist; ke1 Disposition Summary: 05/25/22 04:45 Discharge Ordered Location: Home kdr Problem: an acute exacerbation kdr Symptoms: have improved kdr Condition: Stable kdr Diagnosis - Abdominal pain, Generalized kdr - Vomiting kdr Followup: kdr - With: Private Physician - When: 2 - 3 days - Reason: If symptoms return, Further diagnostic work-up, Recheck today's complaints, Continuance of care, Re-evaluation by your physician Discharge Instructions: - Discharge Summary Sheet kdr - Colostomy Home Guide, Adult kdr - Nausea and Vomiting, Adult, Djqs-rg-[id number] kdr - Abdominal Pain, Adult, Cady-ue-Wqtr kdr Forms: - Medication Reconciliation Form kdr - Thank You Letter kdr Prescriptions: - promethazine 25 mg Oral Tablet - take 1 tablet by ORAL route every 6 hours As needed; 20 tablet; Refills: 0, kdr Product Selection Permitted Signatures: Dispatcher [employer] EDMS Demario Soriano MD MD kdr Ranjan Galvez, SOIL SURVEYOR-C SOIL SURVEYOR-Finesse1 Radha Block tw5 Barrie Hernandez RN RN ke1
[2022-05-25] MEDS ORDERED: FAMOTIDINE 20 MG/2 ML VIAL IV ONE (06:19)
[2022-05-25] MEDS ORDERED: ONDANSETRON 4 MG/2 ML VIAL ONE (06:19)
[2022-05-25] MEDS ORDERED: NA CHLORIDE 0.9% 1,000 ML ONE (06:19)
[2022-05-25 07:27] VITALS: TEMP 98.3
[2022-05-25 07:38] VITALS: BP 96/74; O2SAT 100
== END 2022-05-25 07:11 | disposition home or self-care (01) ==
LOC: ER 02:06
DX: R10.84 Generalized abdominal pain (principal); R11.10 Vomiting, unspecified; Z93.2 Ileostomy status; Z90.49 Acquired absence of other specified parts of digestive tract; F17.220 Nicotine dependence, chewing tobacco, uncomplicated
CPT/HCPCS: 36415; 80053; 83690; 85025; 96374; 96375; 99284; J2405; J7030

== ENCOUNTER 2022-06-09 16:42 | Emergency (ER) | payer SELFPAY ==
--- OUTSIDE RECORDS SUMMARY | 2022-06-09 17:20 | XMS REPORT | Continuity of Care Document ---
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 [facility] URINE CULTURE COLLECTION 2022-02-07 18:06:00 Areli Arciniega [facility] KIT ELECTROLYTES, URINE 2022-02-07 18:06:00 Jyoti Carrillo [facility] OSMOLALITY, URINE 2022-02-07 18:06:00 Jyoti Carrillo [facility] SARS-COV-2, FLU A/B, RSV 2022-02-07 18:05:00 Jyoti Carrillo [facility] CORONAVIRUS, COVID-19, 2022-02-07 18:05:00 Jyoti Carrillo [facility] NUTRITION CONSULT 2022-02-07 17:43:36 Mari Meier [facility] ASSESSMENT BASIC METABOLIC PANEL 2022-02-07 17:18:00 Jyoti Carrillo [facility] LACTIC ACID 2022-02-07 14:04:00 MicahemilianaAreli shields alth CBC/DIFF 2022-02-07 14:03:00 SuzeAllynediger Lynne alth BASIC METABOLIC PANEL 2022-02-07 14:03:00 SuzeAllynediger Guadarrama [facility] LIVER PROFILE 2022-02-07 14:03:00 MicahemilianaAreli shields alth LIPASE 2022-02-07 14:03:00 MicahemilianaAreli shields alth MAGNESIUM 2022-02-07 14:03:00 Areli Arciniega alth PHOSPHORUS 2022-02-07 14:03:00 Areli Arciniega alth TROPONIN I 2022-02-07 14:03:00 GaleAreli shields alth CBC 2022-02-07 14:03:00 SuzeAllynediger Lynne alth 12 LEAD EKG 2022-01-21 15:46:10 Ori Goldberg [facility] CBC/DIFF 2022-01-21 04:11:00 Steve Lucas [facility] MAGNESIUM 2022-01-21 04:11:00 Steve Lucas Heal PHOSPHORUS 2022-01-21 04:11:00 LindseySteve P [facility] BASIC METABOLIC PANEL 2022-01-21 04:11:00 Ori Goldberg [facility] CBC 2022-01-21 04:11:00 LindseySteve [facility] CBC/DIFF 2022-01-20 04:37:00 LindseyNoeh P Lynne [facility]al MAGNESIUM 2022-01-20 04:37:00 LindseySteve P [facility] Heal PHOSPHORUS 2022-01-20 04:37:00 LindseySteve P [facility] BASIC METABOLIC PANEL 2022-01-20 04:37:00 LindseySteve P [facility] Health CBC 2022-01-20 04:37:00 LindseySteve P [facility] MAGNESIUM 2022-01-19 18:09:00 LindseySteve P [facility] PHOSPHORUS 2022-01-19 18:09:00 LindseySteve P [facility] BASIC METABOLIC PANEL 2022-01-19 18:09:00 LindseySteve P [facility] CORTISOL, TOTAL 2022-01-19 18:09:00 Karin aBssett [facility] URINALYSIS W/REFLEX TO 2022-01-19 17:22:00 [facility] Steve P [facility] URINE CULTURE URINALYSIS 2022-01-19 17:22:00 Lindsey Steve P [facility] URINE CULTURE COLLECTION 2022-01-19 17:22:00 LindseySteve P [facility] Health KIT COMPUTED TOMOGRAPHY 2022-01-19 13:29:00 [facility] ABDOMEN AND PELVIS WITHOUT CONTRAST CBC/DIFF 2022-01-19 04:44:00 Lindsey Steve P [facility] CBC 2022-01-19 04:44:00 [facility] Steve P [facility] DIFFERENTIAL, MANUAL (NO 2022-01-19 04:44:00 LindseySteve [facility] Health MORPHOLOGY)-[place] BASIC METABOLIC PANEL 2022-01-18 17:15:00 LindseyNoeh P [facility] CBC/DIFF 2022-01-18 04:46:00 LindseyNoeh P [facility] MAGNESIUM 2022-01-18 04:46:00 [facility] PHOSPHORUS 2022-01-18 04:46:00 [facility] BASIC METABOLIC PANEL 2022-01-18 04:46:00 Ori Goldberg [facility] CBC 2022-01-18 04:46:00 [facility] Steve P [facility] HIV AG/AB COMBO ROUTINE 2022-01-18 04:46:00 Karin Bassett [facility] SCREENING ENTERIC PATHOGENS NUCLEIC 2022-01-18 03:25:00 Karin Bassett [facility] ACID TEST BASIC METABOLIC PANEL 2022-01-18 00:29:00 Ori Goldberg [facility] BASIC METABOLIC PANEL 2022-01-17 17:07:00 Steve [facility] BASIC METABOLIC PANEL 2022-01-17 13:15:00 Steve Lucasi s [facility] CALPROTECTIN FECAL 2022-01-17 12:38:00 Steve Lucas FECAL LEUKOCYTES 2022-01-17 12:38:00 Steve Lucas [facility] T-TRANSGLUTAMINASE IGA 2022-01-17 12:22:00 Steve [facility] BASIC METABOLIC PANEL 2022-01-17 08:51:00 Steve Lucasi s [facility] BASIC METABOLIC PANEL 2022-01-17 04:47:00 [facility] CBC/DIFF 2022-01-17 04:47:00 Steve Lucas [facility] MAGNESIUM 2022-01-17 04:47:00 Steve Lucas [facility] th PHOSPHORUS 2022-01-17 04:47:00 Steve Lucas [facility] CBC 2022-01-17 04:47:00 Steve Lucas [facility] BASIC METABOLIC PANEL 2022-01-17 00:08:00 [facility] 12 LEAD EKG 2022-01-16 21:23:25 Steve Lucas [facility] BASIC METABOLIC PANEL 2022-01-16 21:08:00 [facility] XRAY CHEST 2 VIEWS 2022-01-16 19:56:00 Steve Lucas IP CONSULT TO PHYSICAL 2022-01-16 19:17:17 [facility] THERAPY CONSULT CLINICAL CASE 2022-01-16 19:17:17 [facility] MANAGEMENT (RN/SW) SEQUENTIAL COMPRESSION 2022-01-16 19:17:17 [facility] PUMP SODIUM, URINE, RANDOM 2022-01-16 16:00:00 NievesFrankien Esther [facility] CREATININE, URINE, RANDOM 2022-01-16 16:00:00 NievesFrankien Esther [facility] OSMOLALITY, URINE 2022-01-16 16:00:00 NievesFrankien [facility] SARS-COV-2, FLU A/B, RSV 2022-01-16 15:20:00 Kevin Nieves [facility] CORONAVIRUS, COVID-19, 2022-01-16 15:20:00 NievesFrankien [facility] FOLIC ACID 2022-01-16 14:13:00 NievesKevin kuo [facility] ealt CREATININE POC 2022-01-16 13:55:00 Raymon Martin [facility] BMP POC 2022-01-16 13:46:00 Raymon Martin Healt h CBC/DIFF 2022-01-16 12:12:00 Raymon Martin Healt h CBC 2022-01-16 12:12:00 Raymon Martin [facility] BASIC METABOLIC PANEL 2022-01-16 12:11:00 Sadiq Vargas [facility] MAGNESIUM 2022-01-16 12:11:00 Sadiq aVrgas [facility] VITAMIN B12 2022-01-16 12:11:00 NievesKevin barreto [facility] OSMOLALITY,SERUM 2022-01-16 12:11:00 NievesKevin barreto [facility] INFUSION PUMP 2022-01-11 09:21:05 Helene Ring [facility] GLUCOSE POC 2022-01-11 07:54:00 Helene Ring [facility] BASIC METABOLIC PANEL 2022-01-11 04:07:00 Merissa Richards [facility] MAGNESIUM 2022-01-11 04:07:00 Merissa Richards [facility] PHOSPHORUS 2022-01-11 04:07:00 Mer[facility] Richards [facility] CBC/DIFF 2022-01-11 04:06:00 Merissa Richards Healt [facility] IRON PROFILE 2022-01-11 04:06:00 Merissa Richards Healt h FOLIC ACID 2022-01-11 04:06:00 Merissa Richards [facility] CBC 2022-01-11 04:06:00 Fercho Merissa Mims [facility] GLUCOSE POC 2022-01-10 18:16:00 Helene Ring [facility] URINALYSIS 2022-01-10 16:10:00 Merissa Richards [facility] URINALYSIS 2022-01-10 16:10:00 Merissa Richards [facility] SARS-COV-2, FLU A/B, RSV 2022-01-10 15:54:00 Merissa Richards [facility] CORONAVIRUS, COVID-19, 2022-01-10 15:54:00 Antoine Hester [facility] OLENA BASIC METABOLIC PANEL 2022-01-10 15:54:00 Merissa Richards [facility] VITAMIN B12 2022-01-10 15:54:00 Merissa Richards [facility] VBG POC 2022-01-10 11:14:00 Dia Jewell [facility] CBC/DIFF 2022-01-10 11:13:00 Antoine Hester [facility] BASIC METABOLIC PANEL 2022-01-10 11:13:00 Antoine Hester [facility] LACTIC ACID 2022-01-10 11:13:00 Antoine Hester [facility] CBC 2022-01-10 11:13:00 Antoine Hester [facility] LIVER PROFILE 2022-01-10 11:13:00 Merissa Richards [facility] CK, TOTAL 2022-01-10 11:13:00 Merissa Richards [facility] FERRITIN 2022-01-10 11:13:00 Merissa Richards [facility] CREATINE KINASE MB (CKMB) 2022-01-10 11:13:00 Merissa Richards [facility] XRAY CHEST 2 VIEWS 2022-01-08 21:50:14 Tanja Sebastian [facility] CBC/DIFF 2022-01-08 21:27:00 Tanja Sebastian [facility] BASIC METABOLIC PANEL 2022-01-08 21:27:00 Tanja Sebastian [facility] LIVER PROFILE 2022-01-08 21:27:00 Tanja Sebastian [facility] CK, TOTAL 2022-01-08 21:27:00 Jaz Tanja K [facility] TROPONIN I 2022-01-08 21:27:00 Jaz Tanjareina Lynne [facility] CBC 2022-01-08 21:27:00 Tanja Sebastian [facility] CREATINE KINASE MB (CKMB) 2022-01-08 21:27:00 Tanja Sebastian [place] [id number] LEAD EKG 2022-01-08 20:59:56 Jaz Tanja Walter Lynne [facility] [id number] 2020-01-09 00:00:00 [email or web address] [facility] Plan of Care Planned Activity Planned Date Details Comments Source Future Scheduled 2029-03-23 Screening for malignant [facility] Test 00:00:00 neoplasm of colon [facility] (procedure) [code = 236866693] Future Scheduled 2029-03-23 Screening for malignant [facility] Test 00:00:00 neoplasm of colon [facility] Ce [facility] (procedure) [code = 610155571] Future Scheduled 2029-03-23 Screening for malignant [facility] Test 00:00:00 neoplasm of colon [facility] Ce [facility] (procedure) [code = 047552899] Future Scheduled 2029-03-23 Screening for malignant [facility] Test 00:00:00 neoplasm of colon [facility] Ce [facility] (procedure) [code = 931577765] Future Scheduled 2029-03-23 Screening for malignant [facility] Test 00:00:00 neoplasm of colon [facility] Ce [facility] (procedure) [code = 836608769] Future Scheduled 2029-03-23 Screening for malignant [facility] Test 00:00:00 neoplasm of colon Medical Ce [facility] (procedure) [code = 594952561] Future Scheduled 2029-03-23 Screening for malignant [facility] Test 00:00:00 neoplasm of colon Medical Ce [facility]ter (procedure) [code = 133623395] Future Scheduled 2029-03-23 Screening for malignant [facility] Test 00:00:00 neoplasm of colon Medical Ce [facility]ter (procedure) [code = 060498673] Future Scheduled 2029-03-23 Screening for malignant [facility] Test 00:00:00 neoplasm of colon Medical Ce [facility] (procedure) [code = 356925209] Future Scheduled 2029-03-23 Screening for malignant [facility] Test 00:00:00 neoplasm of colon Medical Ce [facility]ter (procedure) [code = 188177884] Future Scheduled 2029-03-23 Screening for malignant [facility] Test 00:00:00 neoplasm of colon Medical Ce nter (procedure) [code = 967821535] Future Scheduled 2029-03-23 Screening for malignant [facility] Test 00:00:00 neoplasm of colon Medical Ce nter (procedure) [code = 902163319] Future Scheduled 2029-03-23 Screening for malignant [facility] Test 00:00:00 neoplasm of colon Medical Ce [facility]ter (procedure) [code = 981075580] Future Scheduled 2029-03-23 Screening for malignant [facility] Test 00:00:00 neoplasm of colon Medical Ce nter (procedure) [code = 049426716] Future Scheduled 2029-03-23 Screening for malignant [facility] Test 00:00:00 neoplasm of colon Medical Ce [facility]ter (procedure) [code = 567462420] Future Scheduled 2029-03-23 Screening for malignant [facility] Test 00:00:00 neoplasm of colon Medical Ce [facility]ter (procedure) [code = 603175207] Future Scheduled 2029-03-23 Screening for malignant [facility] Test 00:00:00 neoplasm of colon Medical Ce [facility]ter (procedure) [code = 607672378] Future Scheduled 2029-03-23 Screening for malignant [facility] Test 00:00:00 neoplasm of colon Medical Ce [facility]ter (procedure) [code = 651129572] Future Scheduled 2029-03-23 Screening for malignant [facility] Test 00:00:00 neoplasm of colon Medical Ce [facility]ter (procedure) [code = 365501432] Future Scheduled 2022-05-24 IMM Influenza Seasonal H [...] Ce nter VACCINE (#1)] Future Scheduled 2020-02-14 Scre[facility] 00:00:00 neoplasm of colon (procedure) [code = 166492723] Future Scheduled 2020-02-14 Screening for malignant [facility] Test 00:00:00 neoplasm of colon (procedure) [code = 981887086] Future Scheduled 2020-02-14 Screening for malignant [facility] Test 00:00:00 neoplasm of colon (procedure) [code = 157763822] Future Scheduled 2020-02-14 Screening for malignant [facility] Test 00:00:00 neoplasm of colon (procedure) [code = 524127189] Future Scheduled 2020-02-14 Screening for malignant [facility] Test 00:00:00 neoplasm of colon (procedure) [code = 867004526] Future Scheduled 2020-02-14 Screening for malignant [facility] Test 00:00:00 neoplasm of colon (procedure) [code = 621656579] Future Scheduled 2020-02-14 Screening for malignant [facility] Test 00:00:00 neoplasm of colon (procedure) [code = 187728617] Future Scheduled 2020-02-14 Screening for malignant [facility] Test 00:00:00 neoplasm of colon (procedure) [code = 819151856] Future Scheduled 2020-02-14 SHINGLES VACCINES (1 of [...] [facility] 00:00:00 2) [code = SHINGLES [facility] VACCINES (1 of 2)] Future Scheduled 2020-02-14 SHINGLES VACCINES ([address] [facility] 00:00:00 2) [code = SHINGLES [facility] VACCINES (1 of 2)] Future Scheduled 2005 Lipid panel (procedure) [facility] Test 00:00:00 [code = 76280230] Medical Ce nter Future Scheduled 2005 Lipid panel (procedure) [facility] Test 00:00:00 [code = 29427824] Medical Ce nter Future Scheduled 2005 Lipid panel (procedure) [facility] Test 00:00:00 [code = 51846086] Medical Ce nter Future Scheduled 2005 Lipid panel (procedure) [facility] Test 00:00:00 [code = 85956690] Medical Ce nter Future Scheduled 2005 Lipid panel (procedure) [facility] 00:00:00 [code = 42224019] Medical Ce nter Future Scheduled 2005 Lipid panel (procedure) [facility] Test 00:00:00 [code = 97443353] Medical Ce nter Future Scheduled 2005 Lipid panel (procedure) [facility] 00:00:00 [code = 26786785] Medical Ce nter Future Scheduled 2005 Lipid panel (procedure) [facility] 00:00:00 [code = 14703725] Medical Ce nter Future Scheduled 2005 Lipid panel (procedure) [facility] 00:00:00 [code = 14615440] Medical Ce nter Future Scheduled 2005 Lipid panel (procedure) [facility] 00:00:00 [code = 59387282] Medical Ce nter Future Scheduled 1989 DTAP/TDAP/TD [...] [facility] Center SCREENING] Future Scheduled 1970 COVID-19 Vaccine (#1) Momin [...] Pretty ter VACCINE (#1)] Future Scheduled 1970 Fluoride Varnish [code H [...] colon Medical Ce nter (procedure) [code = 483811318] Future Scheduled 1970 Screening for malignant [facility] 00:00:00 neoplasm of colon Medical Ce [facility]ter (procedure) [code = 594807248] Future Scheduled 1970 Sigmoidoscopy [facility]code = [facility]] Medical Cent[facility] r Future Scheduled 1970 CT Colonography (combo) [facility] 00:00:00 [code = CT Colonography [facility] (combo)] Future Scheduled 1970 Screening for malignant [facility] 00:00:00 neoplasm of colon Medical Ce [facility] (procedure) [code = 912945558] Future Scheduled 1970 Screening for malignant [facility] 00:00:00 neoplasm of colon Medical Ce [facility]ter (procedure) [code = 368315167] Future Scheduled 1970 Sigmoidoscopy [code = [facility] Sigmoidoscopy] Medical Cent[facility] r Future Scheduled 1970 CT Colonography (combo) [facility] 00:00:00 [code = CT Colonography [facility] (combo)] Future Scheduled 1970 Screening for malignant [facility] 00:00:00 neoplasm of colon Medical Ce nter (procedure) [code = 793888596] Future Scheduled 1970 Screening for malignant [facility] 00:00:00 neoplasm of colon Medical Ce nter (procedure) [code = 006044583] Future Scheduled 1970 Sigmoidoscopy [facility]code = [facility] S[facility]oscopy] Medical Cente r Future Scheduled 1970 CT Colonography (combo) [facility] 00:00:00 [code = CT Colonography [facility] (combo)] Future Scheduled 1970 Screening for malignant [facility] 00:00:00 neoplasm of colon Medical Ce nter (procedure) [code = 287498344] Future Scheduled 1970 Screening for malignant [facility] 00:00:00 neoplasm of colon Medical Ce nter (procedure) [code = 605721270] Future Scheduled 1970 Sigmoidoscopy [facility]code = [facility] Sigmoidoscopy] Medical Cente r Future Scheduled 1970 CT Colonography (combo) [facility] 00:00:00 [code = CT Colonography [facility] (combo)] Future Scheduled 1970 Screening for malignant [facility] 00:00:00 neoplasm of colon Medical Ce nter (procedure) [code = 434604277] Future Scheduled 1970 Screening for malignant [facility] 00:00:00 neoplasm of colon Medical Ce nter (procedure) [code = 749027637] Future Scheduled 1970 Sigmoidoscopy [facility]code [facility] S[facility]oscopy] Medical Cente r Future Scheduled 1970 CT Colonography (combo) [facility] 00:00:00 [code = CT Colonography [facility] (combo)] Future Scheduled 1970 Screening for malignant [facility] 00:00:00 neoplasm of colon Medical Ce nter (procedure) [code = 287970838] Future Scheduled 1970 Screening for malignant [facility] 00:00:00 neoplasm of colon Medical Ce nter (procedure) [code = 608780340] Future Scheduled 1970 Sigmoidoscopy [facility]code = [facility] S[facility]oscopy] Medical Cente r Future Scheduled 1970 CT Colonography (combo) [facility] 00:00:00 [code = CT Colonography [facility] (combo)] Future Scheduled 1970 Screening for malignant [facility] 00:00:00 neoplasm of colon Medical Ce nter (procedure) [code = 715659522] Future Scheduled 1970 Screening for malignant [facility] 00:00:00 neoplasm of colon Medical Ce nter (procedure) [code = 480196977] Future Scheduled 1970 Sigmoidoscopy [facility]code [facility] S[facility]oscopy] Medical Cente r Future Scheduled 1970 CT Colonography (combo) [facility] 00:00:00 [code = CT Colonography Medi [facility] (combo)] Future Scheduled 1970 Screening for malignant [facility] 00:00:00 neoplasm of colon Medical Ce nter (procedure) [code = 101175268] Future Scheduled 1970 Screening for malignant [facility] Test 00:00:00 neoplasm of colon Medical Ce nter (procedure) [code = 105135000] Future Scheduled 1970 Sigmoidoscopy [facility]code [facility] S[facility]oscopy] Medical Angele r Future Scheduled 1970 CT Colonography (combo) [facility] 00:00:00 [code = CT Colonography [facility] (combo)] Future Scheduled 1970 Screening for malignant [facility] Test 00:00:00 neoplasm of colon Medical Ce nter (procedure) [code = 294085351] Future Scheduled 1970 Screening for malignant [facility] Test 00:00:00 neoplasm of colon Medical Ce nter (procedure) [code = 047008735] Future Scheduled 1970 Sigmoidoscopy [facility]code [facility] 00:[facility]:00 Sigmoidoscopy] Medical Angele r Future Scheduled 1970 CT Colonography (combo) [facility] 00:00:00 [code = CT Colonography [facility] (combo)] Encounters Start End Encounter Admission Attending Care Care Encounter Source Date/Time Date/Time Type Type Clinicians Facility Department ID 2020-02-23 Inpatient HCAPM LENNY [id number] [facility] 18:42:00 89 [facility] 2020-02-17 Inpatient EM Avtar, HCAPM MAS [id number] [facility] 00:22:00 Oladipo 75 [facility] 2020-01-05 Inpatient UR Perea, HCAPM MEDI.01 [id number] [facility] 20:23:00 Mark 40 [facility] 2019-12-13 Inpatient HCAMN JULIA [id number] [facility] 17:52:00 47 [facility] 2022-03-29 2022-03-29 Emergency EM White, HCACL AERS [id number] [facility] 14:26:00 16:45:00 Steve Adams [facility] 2022-03-29 2022-03-29 Emergency EM White, HCACL HCACL [id number] [facility] 14:26:00 16:45:00 Steve Pollock [facility] 2022-03-25 2022-03-[address] [facility] [id number] 13:38:00 10:16:00 , YESSI 2022-03-15 2022-03-18 Emergency E RADHA [facility] [id number] [facility] 13:36:00 18:59:00 NELSON 2022-03-13 2022-03-13 Emergency [facility] [id number] Lynne 15:33:00 20:25:00 [facility] 2022-03-13 2022-03-13 Outpatient RONALD, [facility] [id number] [place] 00:00:00 00:00:00 [facility] 2022-03-06 2022-03-09 [facility] [id number] [facility] 12:16:00 12:55:00 Encounter Dee Dee Montalvo juan Kuo, Pao Ramos [facility] 2022-03-06 2022-03-09 Inpatient ER [facility] Emergency 20 [id number] [facility] 12:16:00 12:55:00 2022-03-06 2022-03-06 Outpatient BCM [place] [id number] [facility] 00:00:00 23:59:00 Jennifer funk of Medicin e 2022-03-06 2022-03-06 Orders [facility] [id number] 00:00:00 00:00:[address] [facility] 2022-03-06 2022-03-06 Travel [facility] [id number] [facility] 00:[facility]:00 [facility] 2022-02-182022-02-20 Emergency Teddy Carbajal [facility] [id number] [place] 13:58:00 11:55:00 [place], [facility] Tejas, Rufino Kobe Chavez 2022-02-18 2022-02-18 Emergency STEVE, [facility] [id number] [place] 15:19:05 15:23:18 TEDDY [facility] 2022-02-18 2022-02-18 Outpatient 1 TEJAS, [facility] [id number] [place] 13:58:00 13:58:00 [facility] 2022-02-18 2022-02-18 [facility] [id number] [place] 00:00:00 00:00:00 , OSCAR Daniels 2022-02-07 2022-02-11 [facility] [id number] [place] 13:40:00 13:22:00 [facility] Al[facility] 2022-02-07 2022-02-07 [id number] [place] 13:40:00 13:40:00 [facility] 2022-01-30 2022-01-30 Emergency SEAN Pacheco, [facility] [id number] [facility] 17:02:00 18:29:00 Dwain 53 [facility] 2022-01-30 2022-01-30 [facility] [id number] [facility] 17:02:00 18:29:00 Dwain [id number] [facility] 2022-01-22 2022-01-22 Emergency [facility] [id number] [place] 17:24:00 20:39:00 [facility] 2022-01-16 2022-01-21 Emergency Raymon Martin [facility] [id number] [place] 11:04:00 18:08:00 Karin Bassett [facility] Darrion Craig Parth P 2022-01-19 2022-01-19 Outpatient [facility] [id number] [place] 12:34:08 13:29:31 [facility] 2022-01-16 2022-01-16 Outpatient [facility] [id number] [place] 19:42:28 20:01:28 [facility] 2022-01-16 2022-01-16 Outpatient 1 DANYELLE, [facility] [id number] Lynne 11:04:00 11:04:00 KARIN boss 2022-01-10 2022-01-11 Emergency Bert Reed [facility] [id number] Lynne 10:58:00 11:20:00 María Elena [facility] Merissa Richards 2022-01-10 2022-01-10 Outpatient 1 MARÍA ELENA, [facility] [id number] [place] 10:58:00 10:58:00 [facility] 2022-01-08 2022-01-09 Emergency [facility] [id number] [place] 17:57:00 02:50:00 [facility] 2022-01-08 2022-01-08 Emergency [facility] [id number] [place] 21:40:34 21:50:19 [facility] 2021-09-23 2021-09-23 Emergency EM Amita Raffaele [facility] [id number] [facility] 19:35:00 21:10:00 74 [facility] 2021-09-13 2021-09-13 Emergency EM Raffaele Levi [facility] [id number] [facility] 14:57:00 16:37:00 06 [facility] 2021-07-27 2021-07-27 Emergency EM Kateryna, [facility] JULIA [id number] [facility] 10:15:00 12:36:[address] [place] [address] 2021-07-22 2021-07-22 Emergency EM Marcelina, [facility] [id number] [facility] 04:25:00 08:20:00 Tarrell 74 [facility] 2021-06-27 2021-06-27 Emergency EM White, [facility] [id number] [facility] 15:31:00 17:37:00 Steve 17 [facility] 2021-04-28 2021-05-01 Inpatient EM Aisha, [facility] [id number] [facility] 21:05:00 14:18:00 Christopher 03 [facility] 2020-02-24 2020-02-24 Outpatient Eliazar, [facility] LABO [id number] [facility] 07:51:00 07:51:00 Mark 96 [facility] 2020-02-18 2020-02-18 Outpatient JOE Nova [id number] [facility] 00:26:00 00:26:00 Oladipo 05 [facility] 2020-01-05 2020-01-05 Outpatient JOE Perea [id number] [facility] 23:52:00 23:52:00 Mark 24 [facility] 2017-11-02 2017-11-02 Emergency E [facility] [id number] [facility] 08:33:00 08:33:00 [facility] 2017-08-05 2017-08-05 Outpatient [facility] [id number] [place] 00:00:00 00:00:00 [facility] 2017-07-28 2017-07-28 Outpatient [facility] [id number] [place] 00:00:00 00:00:00 [facility] 2017-06-24 2017-06-24 Outpatient [facility] [id number] [place] 00:00:00 00:00:00 [facility] 2017-06-22 2017-06-22 Emergency [facility] [id number] [place] 21:37:29 21:37:29 [facility] 2017-06-22 2017-06-22 Emergency [facility] [id number] [place] 21:06:00 21:06:00 [facility] 2017-06-22 2017-06-22 Outpatient [facility] [id number] [place] 10:02:31 10:02:31 [facility] 2017-06-09 2017-06-09 Outpatient [facility] [id number] Lynne 00:00:00 00:00:00 [facility] 2017-06-09 2017-06-09 Outpatient [facility] [id number] [place] 00:00:00 00:00:00 [facility] 2017-05-08 2017-05-08 Emergency [facility] MED [id number] Lynne 01:04:44 01:04:44 [facility] 2017-05-05 2017-05-05 Emergency E [facility] [id number] 08:11:00 08:11:00 [facility] 2017-04-15 2017-04-15 Emergency E [facility] [id number] [facility] 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 BASIC METABOLIC [id number] 14:56:00 Test Item Value Reference Range Interpretation [...] MG/DL 70-110 N - XR CHEST 1 [id number] 00:00:00 [facility] MARIA ISABEL JOSEPH : 1970 Sex: M FAX: Steve Urias MD [phone] [place]: [place] St: REG Name: MARIA ISABEL JOSEPH Castro FSED : 1970 Age/S: 52/M [address] [facility] Unit #: [id number] Loc: [place], [place] [address] Phys: Steve Urias MD Acct: [id number] Dis Date: Status: REG ER PHONE #: Exam Date: 03/29/2022 1501 FAX #: Reason: Weakness EXAMS: CPT CODE: [id number] XR CHEST 1 V 62249 PROCEDURE INFORMATION: Exam: XR Chest Exam date [...] 03/29/2022 (1531) PAGE 1 Signed ReportHEPATIC FUNCTION [id number] 06:45:03 Test Item Value Reference Range Interpretation [...] (test code = 13 U/L 6-55 347) Arbitrator ID - ERWIN WBASIC METABOLIC [id number] 06:45:02 Test Item Value Reference Range Interpretation [...] S NOT APPLICABLE FOR DIALYSIS PATIEN TS. Arbitrator ID - ERWIN WCBC W/PLT COUNT & AUTO [id number] 06:26:54 Test Item Value Reference Range Interpretation [...] (BEAKER) (test code = 2801) U/S, RENAL, [id number] 19:23:00Reason for exam:->acute kidney [facility] DORAJ[facility]IT[facility] NICOLAS : 1970 Sex: MFINAL REPORT TECHNIQUE: Grayscale [...] SARS-Co V-2 (test code = target nucleic 75260-4) acids are not detected in thi s [...] om SARS-CoV-2 in a nasopharyngeal swab specimen [facility] from individual s suspected of COVID-19 [...] revoked sooner. Fact Sheet for Healthcare Providers: https://www.Whisk ([employer]ypsee[employer]Yoolink/Documents/Xp ert%20Xpress%20SAR S%20CoV-2/Fact%20S heets/302-3802%20S ARS-COV-2%20HEALTH CARE%20PROVIDERS%2 0FACT%20SHEET.pdf Fact Sheet for Healthcare Patients: https://www.Elonics/Documents/Xp ert%20Xpress%20SAR S%20CoV-2/Fact%20S heets/302-3801%20S ARS-COV-2%20PATIEN T%20FACT%20SHEET.p df Lab Interpretation Normal (test code = 56496-3) [facility]22-[facility]-06 19:17:07 Test Item Value Reference Interpretation Comments Range SARS-COV2/RT-PCR Negative Negative The SARS-Co V-2 (test code = target nucleic 91542-4) acids are not detected in thi s [...] revoked sooner. Fact Sheet for Healthcare Providers: https://www.Elon[employer]/Documents/Xp ert%20Xpress%20SAR S%20CoV-2/Fact%20S heets/302-3802%20S ARS-COV-2%20HEALTH CARE%20PROVIDERS%2 0FACT%20SHEET.pdf Fact Sheet for Healthcare Patients: https://www.El[employer]ics/Documents/Xp ert%20Xpress%20SAR S%20CoV-2/Fact%20S heets/302-3801%20S ARS-COV-2%20PATIEN T%20FACT%20SHEET.p df Lab Interpretation Normal (test code = 05176-3) [facility]2022-03-06 19:17:07 Test Item Value Reference Interpretation Comments Range SARS-COV2/RT-PCR Negative Negative The SARS-Co V-2 (test code = target nucleic 90704-9) acids are not detected in thi s [...] revoked sooner. Fact Sheet for Healthcare Providers: https://www.Elonics/Documents/Xp ert%20Xpress%20SAR S%20CoV-2/Fact%20S heets/3023802%20S ARS-COV-2%20HEALTH CARE%20PROVIDERS%2 0FACT%20SHEET.pdf Fact Sheet for Healthcare Patients: https://www.Elonics/Documents/Xp ert%20Xpress%20SAR S%20CoV-2/Fact%20S heets/302-3801%20S ARS-COV-2%20PATIEN T%20FACT%20SHEET.p df Lab Interpretation Normal (test code = 86956-7) [facility]2022-03-06 19:17:07 Test Item Value Reference Interpretation Comments Range SARS-COV2/RT-PCR Negative Negative The SARS-Co V-2 (test code = target nucleic 70032-0) acids are not detected in thi s [...] revoked sooner. Fact Sheet for Healthcare Providers: https://www.Elonics/Documents/Xp ert%20Xpress%20SAR S%20CoV-2/Fact%20S heets/302-3802%20S ARS-COV-2%20HEALTH CARE%20PROVIDERS%2 0FACT%20SHEET.pdf Fact Sheet for Healthcare Patients: https://www.Elonics/Documents/Xp ert%20Xpress%20SAR S%20CoV-2/Fact%20S heets/302-3801%20S ARS-COV-2%20PATIEN T%20FACT%20SHEET.p df Lab Interpretation Normal (test code = 32883-3) [facility]2022-03-06 19:17:07 Test Item Value Reference Interpretation Comments Range SARS-COV2/RT-PCR Negative Negative The SARS-Co V-2 (test code = target nucleic 81151-5) acids are not detected in thi s [...] revoked sooner. Fact Sheet for Healthcare Providers: https://www.Elonics/Documents/Xp ert%20Xpress%20SAR S%20CoV-2/Fact%20S heets/302-3802%20S ARS-COV-2%20HEALTH CARE%20PROVIDERS%2 0FACT%20SHEET.pdf Fact Sheet for Healthcare Patients: https://www.Elonics/Documents/Xp ert%20Xpress%20SAR S%20CoV-2/Fact%20S heets/302-3801%20S ARS-COV-2%20PATIEN T%20FACT%20SHEET.p df Lab Interpretation Normal (test code = 20337-2) [facility]2022-03-06 19:17:07 Test Item Value Reference Interpretation Comments Range SARS-COV2/RT-PCR Negative Negative The SARS-Co V-2 (test code = target nucleic 40907-9) acids are not detected in thi s [...] revoked sooner. Fact Sheet for Healthcare Providers: https://www.Elonics/Documents/Xp ert%20Xpress%20SAR S%20CoV-2/Fact%20S heets/3023802%20S ARS-COV-2%20HEALTH CARE%20PROVIDERS%2 0FACT%20SHEET.pdf Fact Sheet for Healthcare Patients: https://www.Elonics/Documents/Xp ert%20Xpress%20SAR S%20CoV-2/Fact%20S heets/3023801%20S ARS-COV-2%20PATIEN T%20FACT%20SHEET.p df Lab Interpretation Normal (test code = 83753-5) [facility]2022-03-06 19:17:07 Test Item Value Reference Interpretation Comments Range SARS-COV2/RT-PCR Negative Negative The SARS-Co V-2 (test code = target nucleic 50031-8) acids are not detected in thi s [...] revoked sooner. Fact Sheet for Healthcare Providers: https://www.Elonics/Documents/Xp ert%20Xpress%20SAR S%20CoV-2/Fact%20S heets/302-3802%20S ARS-COV-2%20HEALTH CARE%20PROVIDERS%2 0FACT%20SHEET.pdf Fact Sheet for Healthcare Patients: https://www.Elonics/Documents/Xp ert%20Xpress%20SAR S%20CoV-2/Fact%20S heets/302-3801%20S ARS-COV-2%20PATIEN T%20FACT%20SHEET.p df Lab Interpretation Normal (test code = 90571-6) [facility]2022-03-06 19:17:07 Test Item Value Reference Interpretation Comments Range SARS-COV2/RT-PCR Negative Negative The SARS-Co V-2 (test code = target nucleic 47221-2) acids are not detected in thi s [...] revoked sooner. Fact Sheet for Healthcare Providers: https://www.Elonics/Documents/Xp ert%20Xpress%20SAR S%20CoV-2/Fact%20S heets/302-3802%20S ARS-COV-2%20HEALTH CARE%20PROVIDERS%2 0FACT%20SHEET.pdf Fact Sheet for Healthcare Patients: https://www.Elonics/Documents/Xp ert%20Xpress%20SAR S%20CoV-2/Fact%20S heets/302-3801%20S ARS-COV-2%20PATIEN T%20FACT%20SHEET.p df Lab Interpretation Normal (test code = 64869-2) [facility]2022-03-06 19:17:07 Test Item Value Reference Interpretation Comments Range SARS-COV2/RT-PCR Negative Negative The SARS-Co V-2 (test code = target nucleic 04157-7) acids are not detected in thi s [...] revoked sooner. Fact Sheet for Healthcare Providers: https://www.Elonics/Documents/Xp ert%20Xpress%20SAR S%20CoV-2/Fact%20S heets/302-3802%20S ARS-COV-2%20HEALTH CARE%20PROVIDERS%2 0FACT%20SHEET.pdf Fact Sheet for Healthcare Patients: https://www.Elonics/Documents/Xp ert%20Xpress%20SAR S%20CoV-2/Fact%20S heets/302-3801%20S ARS-COV-2%20PATIEN T%20FACT%20SHEET.p df Lab Interpretation Normal (test code = 79058-5) [facility])2022-03-06 19:17:07 Test Item Value Reference Range Interpretation Comments SARS-COV2/RT-PCR Negative Negative The SARS-Co V-2 target (test code = nucleic acids a re not 9396372) detected in [facility] s specimen. Negative result s do not [...] individuals suspected of CO VID-19 by their [facility]. This test has been [...] revoked sooner. Fact Sheet for Healthcare Providers: https://www.[employer] m/Documents/Xpert%20Xpress%20SARS%20CoV-2/Fact%20Sheets/302-3802%12PQNU-HHI-9%20 HEALTHCARE%20PROVIDERS%20FACT%20SHEET.pdf Fact Sheet for Healthcare Patients: https://www.Vetr/Documents/Xpert%20Xp ress%20SARS%20CoV-2/Fact%20Sheets/302-3801%82BHOQ-POQ-4%20PATIENT%20FACT%20SHEET .pdfCREATINE KINASE (CK)2022-03-06 16:19:14 Test Item Value Reference Range Interpretation Comments CREATINE KINASE TOTAL (BEAKER) (test 141 U/L 29-200 code = 380) Arbitrator ID - BST4, [id number] 15:13:16 Test Item Value Reference Range Interpretation Comments FREE T4 (BEAKER) (test code = 655) 0.95 ng/dL 0.70-1.48 Arbitrator ID - BSTSH/FREE T4 IF [id number] 15:13:16 Test Item Value Reference Range Interpretation Comments THYROID STIMULATING HORMONE 2.060 uIU/mL 0.350-4.940 (GILMAR) (test code = 772) Arbitrator ID - BSB-TYPE NATRIURETIC FACTOR (BNP)2022-03-06 14:26:30 Test Item Value Reference Range Interpretation Comments B-TYPE NATRIURETIC PEPTIDE (GILMAR) < pg/mL 0-100 (test code = 700) Arbitrator ID - JSHIGH SENSITIVITY TROPONIN [id number] 14:14:54 Test Item Value Reference Range Interpretation Comments HIGH SENSITIVITY < pg/ml See_Comment [Automated message] TROPONIN I (test code = The system which 6117852) generated this result transmitted ref erence range: <=35. Th e reference range was not used to interpr et this result as normal/abnormal . Arbitrator ID - JSThe TOP AND SEAT COVER FITTER STAT High Sensitivity Troponin-I results should be used in conjunctionwith other diagnostic information such as ECG, clinical observations and information, and patient symptoms to aid in the diagnosis of GA.RAD, CHEST, 1 VIEW, NON [id number] 14:10:00Reason for exam:- >NEUROLOGIC PROBLEMShould this be performed at the bedside?->Yes [facility] 1970 Sex: MFINAL [...] Brown Verified Date/Time: 03/06/2022 14:10:44 REHENSIVE METABOLIC [id number] 14:08:22 Test Item Value Reference Range Interpretation [...] S NOT APPLICABLE FOR DIALYSIS PATIEN TS. Arbitrator ID - [id number] 14:07:49 Test Item Value Reference Range Interpretation Comments MAGNESIUM (BEAKER) (test code = 2.0 mg/dL 1.6-2.6 627) Arbitrator ID - [id number] 14:07:49 Test Item Value Reference Range Interpretation Comments PHOSPHORUS (BEAKER) (test code = 5.6 mg/dL 2.3-4.7 H 604) Arbitrator ID - JSLACTIC ACID, [id number] 13:51:04 Test Item Value Reference Range Interpretation Comments LACTATE BLOOD VENOUS 1.32 mmol/L 0.50-2.20 Specime n slightly (2) (BEAKER) (test hemolyzed code = 2877) Arbitrator ID - JSCBC W/PLT COUNT & AUTO [id number] 13:47:24 Test Item Value Reference Range Interpretation [...] (BEAKER) (test code = 2801) Coronavirus, CoVID-19, [id number] 01:07:20 Test Item Value Reference Range Interpretation Comments COVID-19 (SARS-COV-2) Not Detected Not Detected INTERP RETATION: No (test code = 28915-1) detect able levels of SARS-CoV-2 Coronavirus (COVID-19) [...] SARS-CoV-2 Coronavirus (COVID-19).COMM ENT: This Hologic Ap elatha SARS-CoV-2 mole cular diagnostic assa y utilizes Director Of Midwifery/Staff Midwife Mediated Amplification ( TMA) technology to r apidly detect the SARS -CoV-2 (COVID-19) viru s from respiratory adriana ples. In accordance w ith the FDA's kamran nce document "Polic y for Diagnostic Test s for Coronavirus Disease-2019 du ring the Public [facility] Emergency", thi s test was developed, and its performance characteristics were verified by the [facility] molecular diagn ostics laboratory and is authorized for clinical diagno stic use. This labor atory is certified un estevan the Clinical Laboratory Improvement Amendments (CLI A) as qualified to pe rform high complexity clinical labora tory testing. Lab Interpretation Normal (test code = 06928-0) [facility] [id number] 01:07:20 Test Item Value Reference Range Interpretation Comments COVID-19 (SARS-COV-2) Not Detected Not Detected INTERP RETATION: No (test code = 24236-5) detect able levels of SARS-CoV-2 Coronavirus (COVID-19) [...] SARS-CoV-2 mole cular diagnostic assa y utilizes Director Of Midwifery/Staff Midwife Mediated Amplification ( TMA) technology to r apidly detect the SARS -CoV-2 (COVID-19) viru s from respiratory adriana ples. In accordance w ith the FDA's kamran nce document "Polic y for Diagnostic Test s for Coronavirus Disease-2019 du [facility] the [facility]", thi s test was developed, and its performance characteristics were verified by the [facility] molecular diagn ostics laboratory and is authorized for clinical diagno stic use. This labor atory is certified un estevan the Clinical Laboratory Improvement Amendments (CLI A) as qualified to pe rform high complexity clinical labora tory testing. Lab Interpretation Normal (test code = 05478-1) [facility] Surajronavirus, CoVID-19, [id number] 01:07:20 Test Item Value Reference Range Interpretation Comments COVID-19 (SARS-COV-2) Not Detected Not Detected INTERP RETATION: No (test code = 77260-7) detect able levels of SARS-CoV-2 Coronavirus (COVID-19) [...] SARS-CoV-2 mole cular diagnostic assa y utilizes Director Of Midwifery/Staff Midwife Mediated Amplification ( TMA) technology to r apidly detect the SARS -CoV-2 (COVID-19) viru s from respiratory adriana ples. In accordance w ith the FDA's kamran nce document "Polic y for Diagnostic Test s for Coronavirus Disease-2019 du [facility] the [facility]", thi s test was developed, and its performance characteristics were verified by the [facility] molecular diagn ostics laboratory and is authorized for clinical diagno stic use. This labor atory is certified un estevan the Clinical Laboratory Improvement Amendments (CLI A) as qualified to pe rform high complexity clinical labora tory testing. Lab Interpretation Normal (test code = 05400-0) [facility], [id number] 01:07:20 Test Item Value Reference Range Interpretation Comments COVID-19 (SARS-COV-2) Not Detected Not Detected INTERP RETATION: No (test code = 58809-6) detect able levels of SARS-CoV-2 Coronavirus (COVID-19) [...] SARS-CoV-2 mole cular diagnostic assa y utilizes Director Of Midwifery/Staff Midwife Mediated Amplification ( TMA) technology to r apidly detect the SARS -CoV-2 (COVID-19) viru s from respiratory adriana ples. In accordance w ith the FDA's kamran nce document "Polic y for Diagnostic Test s for Coronavirus Disease-2019 du [facility] the Public [facility]", thi s test was developed, and its performance characteristics were verified by the [facility] molecular diagn ostics laboratory and is authorized for clinical diagno stic use. This labor atory is certified un estevan the Clinical Laboratory Improvement Amendments (CLI A) as qualified to pe rform high complexity clinical labora tory testing. Lab Interpretation Normal (test code = 37379-7) [facility] CoV[facility]-19, [id number] 01:07:20 Test Item Value Reference Range Interpretation Comments COVID-19 (SARS-COV-2) Not Detected Not Detected INTERP RETATION: No (test code = 60906-5) detect able levels of SARS-CoV-2 Coronavirus (COVID-19) [...] SARS-CoV-2 mole cular diagnostic assa y utilizes Director Of Midwifery/Staff Midwife Mediated Amplification ( TMA) technology to r apidly detect the SARS -CoV-2 (COVID-19) viru s from respiratory adriana ples. In accordance w ith the FDA's kamran nce document "Polic y for Diagnostic Test s for Coronavirus Disease-2019 du [facility] the Public [facility]", thi s test was developed, and its performance characteristics were verified by the [facility] molecular diagn ostics laboratory and is authorized for clinical diagno stic use. This labor atory is certified un estevan the Clinical Laboratory Improvement Amendments (CLI A) as qualified to pe rform high complexity clinical labora tory testing. Lab Interpretation Normal (test code = 33549-5) [facility], CoVID-19, [id number] 01:07:20 Test Item Value Reference Range Interpretation Comments COVID-19 (SARS-COV-2) Not Detected Not Detected INTERP RETATION: No (test code = 50883-4) detect able levels of SARS-CoV-2 Coronavirus (COVID-19) [...] SARS-CoV-2 mole cular diagnostic assa y utilizes Director Of Midwifery/Staff Midwife Mediated Amplification ( TMA) technology to r apidly detect the SARS -CoV-2 (COVID-19) viru s from respiratory adriana ples. In accordance w ith the FDA's kamran nce document "Polic y for Diagnostic Test s for Coronavirus Disease-2019 du [facility] the Public [facility]", thi s test was developed, and its performance characteristics were verified by the [facility] molecular diagn ostics laboratory and is authorized for clinical diagno stic use. This labor atory is certified un estevan the Clinical Laboratory Improvement Amendments (CLI A) as qualified to pe rform high complexity clinical labora tory testing. Lab Interpretation Normal (test code = 65964-8) [facility]avirus, CoVID-19, [id number] 01:07:20 Test Item Value Reference Range Interpretation Comments COVID-19 (SARS-COV-2) Not Detected Not Detected INTERP RETATION: No (test code = 70975-8) detect able levels of SARS-CoV-2 Coronavirus (COVID-19) [...] SARS-CoV-2 mole cular diagnostic assa y utilizes Director Of Midwifery/Staff Midwife Mediated Amplification ( TMA) technology to r apidly detect the SARS -CoV-2 (COVID-19) viru s from respiratory adriana ples. In accordance w ith the FDA's kamran nce document "Polic y for Diagnostic Test s for Coronavirus Disease-2019 du ring the Public [facility]", thi s test was developed, and its performance characteristics were verified by the [facility] molecular diagn ostics laboratory and is authorized for clinical diagno stic use. This labor atory is certified un estevan the Clinical Laboratory Improvement Amendments (CLI A) as qualified to pe rform high complexity clinical labora tory testing. Lab Interpretation Normal (test code = 97656-2) [facility] CoVID-19, [id number] 01:07:20 Test Item Value Reference Range Interpretation Comments COVID-19 (SARS-COV-2) Not Detected Not Detected INTERP RETATION: No (test code = 66706-7) detect able levels of SARS-CoV-2 Coronavirus (COVID-19) [...] SARS-CoV-2 mole cular diagnostic assa y utilizes Director Of Midwifery/Staff Midwife Mediated Amplification ( TMA) technology to r apidly detect the SARS -CoV-2 (COVID-19) viru s from respiratory adriana ples. In accordance w ith the FDA's kamran nce document "Polic y for Diagnostic Test s for Coronavirus Disease-2019 du ring the Public Heal th Emergency", thi s test was developed, and its performance characteristics were verified by the [facility] molecular diagn ostics laboratory and is authorized for clinical diagno stic use. This labor atory is certified un [place] the Clinical Laboratory Improvement Amendments (CLI A) as qualified to pe rform high complexity clinical labora tory testing. Lab Interpretation Normal (test code = 46933-8) [facility]RaL-5 ORF1ab Resp Ql OLENA+jfgwn5337-54-10 01:07:20 Test Item Value Reference Range Interpretation Comments Hospitalized? (test No code = 60149-9) ICU? (test code = No 20940-1) Symptomatic as No defined by CDC? (test code = 37710-8) Employed in No Healthcare? (test code = 29195-3) Resident in a No congregate care setting (including nursing homes, residential care for people with intellectual and developmental disabilities, psychiatric treatment facilities, group homes, board and care homes, homeless prison, foster care or other): (test code = 41296-9) SARS-CoV-2 ORF1ab NOT DETECTED Not Detected INTERPRETA TION: No Resp Ql OLENA+probe detectable levels of (test code = SARS-CoV-2 44640-3) Coronavirus (COVID-19) were present in this patient's [...] SARS-CoV-2 mole cular diagnostic assa y utilizes Director Of Midwifery/Staff Midwife Mediated Amplification ( TMA) technology to r apidly detect the SARS -CoV-2 (COVID-19) viru s from respiratory adriana ples. In accordance with\\XC2A0\\the FDA's guidance docume nt "Policy for Diagnostic Test s for Coronavirus Disease-2019 du ring the Public Heal th Emergency", ginger s test was developed, and its performance characteristics were verified by the [facility] molecular diagn ostics laboratory and is authorized for clinical diagno stic use. \\XC2A0\\Ginger s laboratory is certified under the Clinical Labora tory Improvement Amendments (CLI A) as qualified to pe rform high complexity clinical labora tory testing. POCT GLUCOSE POC docked [id number] 08:09:01 Test Item Value Reference Range Interpretation Comments Glucose POC (test code = 80604805) 85 mg/dL 74-106 Lab Interpretation (test code = Normal 31037-7) [facility] ookjvl9929-34-85 08:09:01 Test Item Value Reference Range Interpretation Comments Glucose POC (test code = 62494689) 85 mg/dL 74-106 Lab Interpretation (test code = Normal 83422-4) [facility] [id number] 08:09:01 Test Item Value Reference Range Interpretation Comments Glucose POC (test code = 43986454) 85 mg/dL 74-106 Lab Interpretation (test code = Normal 32754-3) [facility] yezixd6143-30-02 08:09:01 Test Item Value Reference Range Interpretation Comments Glucose POC (test code = 38954630) 85 mg/dL 74-106 Lab Interpretation (test code = Normal 27152-2) [facility] gzaahi4575-44-31 08:09:01 Test Item Value Reference Range Interpretation Comments Glucose POC (test code = 49602710) 85 mg/dL 74-106 Lab Interpretation (test code = Normal 10789-5) [facility] dloucp1451-22-59 08:09:01 Test Item Value Reference Range Interpretation Comments Glucose POC (test code = 75822468) 85 mg/dL 74-106 Lab Interpretation (test code = Normal 42827-7) [facility] mkbxla6775-64-26 08:09:01 Test Item Value Reference Range Interpretation Comments Glucose POC (test code = 82925478) 85 mg/dL 74-106 Lab Interpretation (test code = Normal 64738-3) [facility] fvnhbl1221-70-77 08:09:01 Test Item Value Reference Range Interpretation Comments Glucose POC (test code = 37442638) 85 mg/dL 74-106 Lab Interpretation (test code = Normal 08417-3) [facility] ItgywvGUXP-OfR-9 ORF1ab Resp Ql OLENA+ylbgg4094-96-15 23:25:40 Test Item Value Reference Range Interpretation Comments Hospitalized? (test No code = 00081-7) ICU? (test code = No 86142-4) Symptomatic as No defined by CDC? (test code = 53560-7) Employed in No Healthcare? (test code = 90340-1) Resident in a No congregate care setting (including nursing homes, residential care for people with intellectual and developmental disabilities, psychiatric treatment facilities, group homes, board and care homes, homeless prison, foster care or other): (test code = 39061-1) SARS-CoV-2 ORF1ab NOT DETECTED Not Detected INTERPRETA TION: No Resp Ql OLENA+probe detectable levels of (test code = SARS-CoV-2 18563-9) Coronavirus (COVID-19) were present in this patient's [...] SARS-CoV-2 mole cular diagnostic assa y utilizes Director Of Midwifery/Staff Midwife Mediated Amplification ( TMA) technology to r apidly detect the SARS -CoV-2 (COVID-19) viru s from respiratory adriana ples. In accordance with\\XC2A0\\the FDA's guidance docume nt "Policy for Diagnostic Test s for Coronavirus Disease-2019 du [facility] the Public Heal th Emergency", ginger s test was developed, and its performance characteristics were verified by the [facility] molecular diagn ostics laboratory and is authorized for clinical diagno stic use. \\XC2A0\\Ginger s laboratory is certified under the Clinical Labora tory Improvement Amendments (CLI A) as qualified to pe rform high complexity clinical labora tory testing. 12 Lead [id number] 15:46:1012 LEAD EKG FOR [facility] Test Date: 9345-93-56Gyh Name: DORA JOSEPH Department: 5ECIPatient ID: [id number] Room: Gender: M Photocopy Operator: [id number]: 1970 Requested By: DARRION Cho Number: [id number] Reading MD: Rene Patterson MeasurementsIntervals Sunbright Rate: 61 P: 72PR:152 QRS: 55QRSD: 106 T: 63QT: 398 QTc: 400 Interpretive StatementsSINUS RHYTHMPOSSIBLE RIGHT VENTRICULAR CONDUCTION DELAY [RSR (QR) IN V1/V2]Electronically Signed On 01-22-2022 8:30:45 CDT by Rene AvitiaLiveUCompaAventine Renewable Energy Holdings12 Lead [id number] 15:46:1012 LEAD EKG FOR [facility] Test Date: 4618-37-34Qoi Name: DORA JOSEPH Department: 5ECIPatient ID: [id number] Room: Gender: M Photocopy Operator: [id number]: 1970 Requested By: DARRION Cho Number: [id number] Reading MD: Rene Patterson MeasurementsIntervals Sunbright Rate: 61 P: 72PR: 152 QRS: 55QRSD: 106 T: 63QT: 398 QTc: 400 Interpretive StatementsSINUS RHYTHMPOSSIBLE RIGHT VENTRICULAR CONDUCTION DELAY [RSR (QR) IN V1/V2]Electronically Signed On 01-22-2022 8:30:45 CDT by Rene PaeznexTuneDebbyLiveUCompaAventine Renewable Energy Holdings12 Lead [id number] 15:46:1012 LEAD EKG FOR [facility] Test Date: 7822-98-37Enb Name: DORA JOSEPH Department: 5ECIPatient ID: [id number] Room: Gender: M Photocopy Operator: [id number]: 1970 Requested By: DARRION Cho Number: [id number] Reading MD: Rene Patterson MeasurementsIntervals Sunbright Rate: 61 P: 72PR: 152 QRS: 55QRSD: 106 T: 63QT: 398 QTc: 400 Interpretive StatementsSINUS RHYTHMPOSSIBLE RIGHT VENTR ICULAR CONDUCTION DELAY [RSR (QR) IN V1/V2]Electronically Signed On 01-22-2022 8:30:45 CDT by Rene ScalITDebbyLiveUClements Zelrau79 Lead [id number] 15:46:1012 LEAD EKG FOR [facility] Test Date: 7143-69-42Wyn Name: DORA JOSEPH Department: 5EPatient ID: [id number] Room: Gender: M Photocopy Operator: [id number]: 1970 Requested By: DARRION Cho Number: [id number] Reading MD: Rene Patterson MeasurementsIntervals Sunbright Rate: 61 P: 72PR: 152 QRS: 55QRSD: 106 T: 63QT: 398 QTc: 400 Interpretive StatementsSINUS RHYTHMPOSSIBLE RIGHT VENTRICULAR CONDUCTION DELAY [RSR (QR) IN V1/V2]Electronically Signed On 01-22-2022 8:30:45 CDT by Rene ScalITChrisLiveUBaptist Health Rehabilitation InstituteAventine Renewable Energy Holdings12 Lead [id number] 15:46:1012 LEAD EKG FOR [facility] Test Date: 1735-71-85Sky Name: DORA JOSEPH Department: 5ECIPatient ID: [id number] Room: Gender: M Photocopy Operator: [id number]: 1970 Requested By: DARRION Cho Number: [id number] Reading : Rene Patterson MeasurementsIntervals Sunbright Rate: 61 P: 72PR : 152 QRS: 55QRSD: 106 T: 63QT: 398 QTc: 400 Interpretive StatementsSINUS RHYTHMPOSSIBLE RIGHT VENTRICULAR CONDUCTION DELAY [RSR (QR) IN V1/V2]Electronically Signed On 01-22-2022 8:30:45 CDT by Rene [facility] CenteranSAndrew Ville [address] Lead [id number] 15:46:1012 LEAD EKG FOR [facility] Test Date: 8438-68-43Jxn Name: DORA JOSEPH Department: 5ECIPatient ID: [id number] Room: Gender: M Photocopy Operator: [id number]: 1970 Requested By: DARRION Cho Number: [id number] Reading MD: Rene Patterson MeasurementsIntervals Sunbright Rate: 61 P: 72PR: 152 QRS: 55QRSD: 106 T: 63QT: 398 QTc: 400 Interpretive StatementsSINUS RHYTHMPOSSIBLE RIGHT VENTRICULAR CONDUCTION DELAY [RSR (QR) IN V1/V2]Electronically Signed On 01-22-2022 8:30:45 CDT by Rene [place]itiaWACompaJeremy [place] [address] Lead [id number] 15:46:1012 LEAD EKG FOR [facility] Test Date: 3469-87-59Rin Name: DORA JOSEPH Department: 5ECIPatient ID: [id number] Room: Gender: M Photocopy Operator: [id number]: 1970 Requested By: DARRION Cho Number: [id number] Reading MD: Rene Patterson MeasurementsIntervals Sunbright Rate: 61 P: 72PR: 152 QRS: 55QRSD: 106 T: 63QT: 398 QTc: 400 Interpretive StatementsSINUS RHYTHMPOSSIBLE RIGHT VENTRI CULAR CONDUCTION DELAY [RSR (QR) IN V1/V2]Electronically Signed On 01-22-2022 8:30:45 CDT by Rene [place]itiaWACompaJeremy [place] [address] Lead [id number] 15:46:1012 LEAD EKG FOR [facility] Test Date: 4604-48-08Bja Name: DORA JOSEPH Department: 5ECIPatient ID: [id number] Room: Gender: M Photocopy Operator: [id number]: 1970 Requested By: DARRION Cho Number: [id number] Reading MD: Rene Patterson MeasurementsIntervals Sunbright Rate: 61 P: 72PR: 152 QRS: 55QRSD: 106 T: 63QT: 398 QTc: 400 Interpretive StatementsSINUS RHYTHMPOSSIBLE RIGHT VENTRICULAR CONDUCTION DELAY [RSR (QR) IN V1/V2]Electronically Signed On 01-22-2022 8:30:45 CDT by [facility]ene [facility] 1+2 Ab+HIV1 p24 Ag SerPl Ql [id number] 07:02:58 Test Item Value Reference Range Interpretation Comments HIV 1+2 Ab+HIV1 p24 Ag SerPl Ql IA NEGATIVE Negative (test code = 08666-0) [id number] 21:23:2512 LEAD EKG FOR [facility] Test Date: 3669-15-33Bbw Name: DORA PAEZRY Department: 5520Patient ID: [id number] Room: 0M66Zvzxtq: Photocopy Operator: : 1970 Requested By: KARIN BASSETT AOrder Number: [id number] Reading MD: Chiara Calles MeasurementsIntervals Sunbright Rate: 72 P: 90PR:157 QRS: 87QRSD: 105 T: 90QT: 360 QTc: 384 Interpretive StatementsSINUS RHYTHMPOSSIBLE RIGHT VENTRICULAR CONDUCTION DELAY [RSR (QR) IN V1/V2]EARLY REPOLARIZATION [ST ELEVATION WITH NORMALLY INFLECTED T-WAVE]Electronically Signed On 01-17-2022 13:02:30 CDT by Chiara [place] [address]EwgikjYEM8638-10-09 21:23:2512 LEAD EKG FOR [facility] Test Date: 8048-65-49Mla Name: DORA KEYSTONE Department: 5520Patient ID: [id number] Room: 4G02Meqtza: M Photocopy Operator: : 1970 Requested By: KARIN BASSETT AOrder Number: [id number] Reading MD: Chiara Calles MeasurementsIntervals Sunbright Rate: 72 P: 90PR: 157 QRS: 87QRSD: 105 T: 90QT: 360 QTc: 384 Interpretive StatementsSINUS RHYTHMPOSSIBLE RIGHT VENTRICULAR CONDUCTION DELAY [RSR (QR) IN V1/V2]EARLY REPOLARIZATION [ST ELEVATION WITH NORMALLY INFLECTED T-WAVE]Electronically Signed On 01-17-2022 13:02:30 CDT by [facility] [place] [address]GrohcnIZN1283-37-69 21:23:2512 LEAD EKG FOR [facility] Test Date: 8872-70-31Tpy Name: DORA PAEZRY Department: 5520Patient ID: [id number] Room: 7W44Cgjunc: M Photocopy Operator: : 1970 Requested By: KARIN BASSETT AOrder Number: [id number] Reading MD: Chiara Calles MeasurementsIntervals Sunbright Rate: 72 P: 90PR:157 QRS: 87QRSD: 105 T: 90QT: 360 QTc: 384 Interpretive StatementsSINUS RHYTHMPOSSIBLE RIGHT VENTRICU LAR CONDUCTION DELAY [RSR (QR) IN V1/V2]EARLY REPOLARIZATION [ST ELEVATION WITH NORMALLY INFLECTED T-WAVE]Electronically Signed On 01-17-2022 13:02:30 CDT by Positive NetworksEKG2022-05-26 21:23:2512 LEAD EKG FOR [facility] Test Date: 8618-64-08Ths Name: DORA PAEZRY Department: 5520Patient ID: [id number] Room: 5Z67Aknice: M Photocopy Operator: : 1970 Requested By: JESSICA AOrder Number: [id number] Reading MD: Chiara Calles MeasurementsIntervals Sunbright Rate: 72 P: 90PR:157 QRS: 87QRSD: 105 T: 90QT: 360 QTc: 384 Interpretive StatementsSINUS RHYTHMPOSSIBLE RIGHT VENTRICULAR CONDUCTION DELAY [RSR (QR) IN V1/V2]EARLY REPOLARIZATION [ST ELEVATION WITH NORMALLY INFLECTED T-WAVE]Electronically Signed On 01-17-2022 13:02:30 CDT by Fusionone Electronic HealthcareBaptist Health Rehabilitation InstituteAventine Renewable Energy HoldingsMbpfurVTA8943-98-48 21:23:2512 LEAD EKG FOR [facility] Test Date: 4304-09-32Kpp Name: DORA PAEZRY Department: 5520Patient ID: [id number] Room: 1Z76Ycveqr: M Photocopy Operator: : 1970 Requested By: KARIN BASSETT AOrder Number: [id number] Reading MD: Chiara Calles MeasurementsIntervals Sunbright Rate: 72 P: 90PR:157 QRS: 87QRSD: 105 T: 90QT: 360 QTc: 384 Interpretive StatementsSINUS RHYTHMPOSSIBLE RIGHT VENTRICULAR CONDUCTION DELAY [RSR (QR) IN V1/V2]EARLY REPOLARIZATION [ST ELEVATION WITH NORMALLY INFLECTED T-WAVE]Electronically Signed On 01-17-2022 13:02:30 CDT by [facility] [place] [address]GvjqqvPHE6601-43-46 21:23:2512 LEAD EKG FOR [facility] Test Date: 3228-64-73Jcl Name: DORA JOSEPH Department: 5520Patient ID: [id number] Room: 0R00Kmwqkt: Photocopy Operator: : 1970 Requested By: KARIN BASSETT AOrder Number: [id number] Reading MD: Chiara Calles MeasurementsIntervals Sunbright Rate: 72 P: 90PR:157 QRS: 87QRSD: 105 T: 90QT: 360 QTc: 384 Interpretive StatementsSINUS RHYTHMPOSSIBLE RIGHT VENTRICULAR CONDUCTION DELAY [RSR (QR) IN V1/V2]EARLY REPOLARIZATION [ST ELEVATION WITH NORMALLY INFLECTED T-WAVE]Electronically Signed On 01-17-2022 13:02:[address] [facility] CenterSuper Heat GamesAnthony [place] [address]PihtyjBSC9978-90-19 21:23:2512 LEAD EKG FOR [facility] Test Date: 5936-35-01Ivx Name: DORA JOSEPH Department: 5520Patient ID: [id number] Room: 3G35Rgfqui: Photocopy Operator: : 1970 Requested By: KARIN BASSETT AOrder Number: [id number] Reading MD: Chiaar Calles MeasurementsIntervals Sunbright Rate: 72 P: 90PR: 157 QRS: 87QRSD: 105 T: 90QT: 360 QTc: 384 Interpretive StatementsSINUS RHYTHMPOSSIBLE RIGHT VENTRICULAR CONDUCTION DELAY [RSR (QR) IN V1/V2]EARLY REPOLARIZATION [ST ELEVATION WITH NORMALLY INFLECTED T-WAVE]Electronically Signed On 01-17-2022 13:02:30 CDT by [facility] [place] [address]ArslpmCGF0746-20-41 21:23:2512 LEAD EKG FOR [facility] Test Date: 0931-47-54Xgi Name: DORA JOSEPH Department: 5520Patient ID: [id number] Room: 3S73Xldnkf: M Photocopy Operator: : 1970 Requested By: KARIN BASSETT AOrder Number: [id number] Reading MD: Chiara Calles MeasurementsIntervals Sunbright Rate: 72 P: 90PR: 157 QRS: 87QRSD: 105 T: 90QT: 360 QTc: 384 Interpretive StatementsSINUS RHYTHMPOSSIBLE RIGHT VENTRICULAR CONDUCTION DELAY [RSR (QR) IN V1/V2]EARLY REPOLARIZATION [ST ELEVATION WITH NORMALLY INFLECTED T-WAVE]Electronically Signed On 01-17-2022 13:02:30 CDT by Chiara [facility]2 ORF1ab Resp Ql OLENA+qrrdb6944-59-23 19:57:49 Test Item Value Reference Range Interpretation Comments Hospitalized? (test No code = 49165-2) ICU? (test code = No 80392-4) Symptomatic as No defined by CDC? (test code = 43796-9) Employed in No Healthcare? (test code = 08358-7) Resident in a No congregate care setting (including nursing homes, residential care for people with intellectual and developmental disabilities, psychiatric treatment facilities, group homes, board and care homes, homeless prison, foster care or other): (test code = 48685-1) SARS-CoV-2 ORF1ab NOT DETECTED Not Detected INTERPRETA TION: No Resp Ql OLENA+probe detectable levels of (test code = SARS-CoV-2 60599-2) Coronavirus (COVID-19) were present in this patient's [...] SARS-CoV-2 mole cular diagnostic assa y utilizes Director Of Midwifery/Staff Midwife Mediated Amplification ( TMA) technology to r apidly detect the SARS -CoV-2 (COVID-19) viru s from respiratory adriana ples. In accordance with\\XC2A0\\the FDA's guidance docume nt "Policy for Diagnostic Test s for Coronavirus Disease-2019 du [facility] the [facility] th Emergency", ginger s test was developed, and its performance characteristics were verified by the [facility] molecular diagn ostics laboratory and is authorized for clinical diagno stic use. \\XC2A0\\Ginger s laboratory is certified under the Clinical Labora tory Improvement Amendments (CLI A) as qualified to pe rform high complexity clinical labora tory testing. POCT CREATININE POC docked jcfohj5685-33-67 13:57:55 Test Item Value Reference Range Interpretation Comments Creatinine POC (test 2.4 mg/dL 0.6-1.3 H Physici an Notified code = 55667111) eGFR If non- Am 30 See_Comment L [Aut omated message] (test code = 89140561) The s ystem which generated this result transmit dain reference range : >=90 mL/min/1.7 3 m2. The reference r meredith was not used to interpret this result as normal/abnormal . eGFR If Am (test 35 See_Comment L [A utomated message] code = 58387953) The system which generated this result transmit dain reference range : >=90 mL/min/1.7 3 m2. The reference r meredith was not used to interpret this result as normal/abnormal . Lab Interpretation (test Abnormal code = 28496-5) [facility] CREATININE POC docked htthnj2379-36-64 13:57:55 Test Item Value Reference Range Interpretation Comments Creatinine POC (test 2.4 mg/dL 0.6-1.3 H Physici an Notified code = 97467711) eGFR If non- Am 30 See_Comment L [Aut omated message] (test code = 67184300) The s ystem which generated this result transmit dain reference range : >=90 mL/min/1.7 3 m2. The reference r meredith was not used to interpret this result as normal/abnormal . eGFR If Am (test 35 See_Comment L [A utomated message] code = 10788544) The system which generated this result transmit dain reference range : >=90 mL/min/1.7 3 m2. The reference r meredith was not used to interpret this result as normal/abnormal . Lab Interpretation (test Abnormal code = 80177-6) [facility] [id number] 13:57:55 Test Item Value Reference Range Interpretation Comments Creatinine POC (test 2.4 mg/dL 0.6-1.3 H Physici an Notified code = 41958092) eGFR If non- Am 30 See_Comment L [Aut omated message] (test code = 42488562) The s ystem which generated this result transmit dain reference range : >=90 mL/min/1.7 3 m2. The reference r meredith was not used to interpret this result as normal/abnormal . eGFR If Am (test 35 See_Comment L [A utomated message] code = 92219089) The system which generated this result transmit dain reference range : >=90 mL/min/1.7 3 m2. The reference r meredith was not used to interpret this result as normal/abnormal . Lab Interpretation (test Abnormal code = 46600-8) [facility] CREATININE POC docked hrmirx0007-22-65 13:57:55 Test Item Value Reference Range Interpretation Comments Creatinine POC (test 2.4 mg/dL 0.6-1.3 H Physici an Notified code = 54364250) eGFR If non- Am 30 See_Comment L [Aut omated message] (test code = 51216926) The s ystem which generated this result transmit dain reference range : >=90 mL/min/1.7 3 m2. The reference r meredith was not used to interpret this result as normal/abnormal . eGFR If Am (test 35 See_Comment L [A utomated message] code = 24196356) The system which generated this result transmit dain reference range : >=90 mL/min/1.7 3 m2. The reference r meredith was not used to interpret this result as normal/abnormal . Lab Interpretation (test Abnormal code = 52349-9) [facility] CREATININE POC docked urzfnz7366-39-78 13:57:55 Test Item Value Reference Range Interpretation Comments Creatinine POC (test 2.4 mg/dL 0.6-1.3 H Physici an Notified code = 46660486) eGFR If non- Am 30 See_Comment L [Aut omated message] (test code = 47943538) The s ystem which generated this result transmit dain reference range : >=90 mL/min/1.7 3 m2. The reference r meredith was not used to interpret this result as normal/abnormal . eGFR If Am (test 35 See_Comment L [A utomated message] code = 43265982) The system which generated this result transmit dain reference range : >=90 mL/min/1.7 3 m2. The reference r meredith was not used to interpret this result as normal/abnormal . Lab Interpretation (test Abnormal code = 91952-2) [facility] CREATININE POC docked imnjkm7563-67-57 13:57:55 Test Item Value Reference Range Interpretation Comments Creatinine POC (test 2.4 mg/dL 0.6-1.3 H Physici an Notified code = 97101050) eGFR If non- Am 30 See_Comment L [Aut omated message] (test code = 89682047) The s ystem which generated this result transmit dain reference range : >=90 mL/min/1.7 3 m2. The reference r meredith was not used to interpret this result as normal/abnormal . eGFR If Am (test 35 See_Comment L [A utomated message] code = 40751368) The system which generated this result transmit dain reference range : >=90 mL/min/1.7 3 m2. The reference r meredith was not used to interpret this result as normal/abnormal . Lab Interpretation (test Abnormal code = 24236-7) [facility] docked [id number] 13:57:55 Test Item Value Reference Range Interpretation Comments Creatinine POC (test 2.4 mg/dL 0.6-1.3 H Physici an Notified code = 39273457) eGFR If non- Am 30 See_Comment L [Aut omated message] (test code = 69464372) The s ystem which generated this result transmit dain reference range : >=90 mL/min/1.7 3 m2. The reference r meredith was not used to interpret this result as normal/abnormal . eGFR If Am (test 35 See_Comment L [A utomated message] code = 87727971) The system which generated this result transmit dain reference range : >=90 mL/min/1.7 3 m2. The reference r meredith was not used to interpret this result as normal/abnormal . Lab Interpretation (test Abnormal code = 52071-1) [facility] CREATININE POC docked [id number] 13:57:55 Test Item Value Reference Range Interpretation Comments Creatinine POC (test 2.4 mg/dL 0.6-1.3 H Physici an Notified code = 05820654) eGFR If non- Am 30 See_Comment L [Aut omated message] (test code = 85768504) The s ystem which generated this result transmit dain reference range : >=90 mL/min/1.7 3 m2. The reference r meredith was not used to interpret this result as normal/abnormal . eGFR If Am (test 35 See_Comment L [A utomated message] code = 49291939) The system which generated this result transmit dain reference range : >=90 mL/min/1.7 3 m2. The reference r meredith was not used to interpret this result as normal/abnormal . Lab Interpretation (test Abnormal code = 37349-9) [facility] BMP POC docked [id number] 13:48:46 Test Item Value Reference Range Interpretation Comments Sodium POC (test code = 126 mmol/L 136-145 L 12824473) Potassium POC (test code 4.4 mmol/L 3.5-5.1 = 07731593) Chloride POC (test code 100 mmol/L 98-107 = 33273325) TCO2 POC (test code = 17 mmol/L 21-32 L Physic aylin Notified 58014827) Urea Nitrogen POC (test 36 mg/dL 7-18 H code = 06990385) Glucose POC (test code = 114 mg/dL 74-106 H 56873108) Hemoglobin POC (test 11.9 g/dL 12-16 L code = 20449749) Hematocrit POC (test 35.0 % 37.0-47.0 L code = 04984918) Lab Interpretation (test Abnormal code = 66080-2) [facility] BMP POC docked dmwmbv4817-33-48 13:48:46 Test Item Value Reference Range Interpretation Comments Sodium POC (test code = 126 mmol/L 136-145 L 83056218) Potassium POC (test code 4.4 mmol/L 3.5-5.1 = 58366304) Chloride POC (test code 100 mmol/L 98-107 = 43609174) TCO2 POC (test code = 17 mmol/L 21-32 L Physic aylin Notified 70719833) Urea Nitrogen POC (test 36 mg/dL 7-18 H code = 40369471) Glucose POC (test code = 114 mg/dL 74-106 H 33891399) Hemoglobin POC (test 11.9 g/dL 12-16 L code = 60382885) Hematocrit POC (test 35.0 % 37.0-47.0 L code = 66923605) Lab Interpretation (test Abnormal code = 08265-3) [facility] POC docked [id number] 13:48:46 Test Item Value Reference Range Interpretation Comments Sodium POC (test code = 126 mmol/L 136-145 L 22910359) Potassium POC (test code 4.4 mmol/L 3.5-5.1 = 82538088) Chloride POC (test code 100 mmol/L 98-107 = 13422469) TCO2 POC (test code = 17 mmol/L 21-32 L Physic aylin Notified 90886627) Urea Nitrogen POC (test 36 mg/dL 7-18 H code = 39684421) Glucose POC (test code = 114 mg/dL 74-106 H 42349118) Hemoglobin POC (test 11.9 g/dL 12-16 L code = 58006572) Hematocrit POC (test 35.0 % 37.0-47.0 L code = 16106696) Lab Interpretation (test Abnormal code = 92242-7) [facility] POC docked [id number] 13:48:46 Test Item Value Reference Range Interpretation Comments Sodium POC (test code = 126 mmol/L 136-145 L 52959624) Potassium POC (test code 4.4 mmol/L 3.5-5.1 = 16717016) Chloride POC (test code 100 mmol/L 98-107 = 18005947) TCO2 POC (test code = 17 mmol/L 21-32 L Physic aylin Notified 13238811) Urea Nitrogen POC (test 36 mg/dL 7-18 H code = 01836616) Glucose POC (test code = 114 mg/dL 74-106 H 09548337) Hemoglobin POC (test 11.9 g/dL 12-16 L code = 65288170) Hematocrit POC (test 35.0 % 37.0-47.0 L code = 55182600) Lab Interpretation (test Abnormal code = 81027-8) [facility] POC docked [id number] 13:48:46 Test Item Value Reference Range Interpretation Comments Sodium POC (test code = 126 mmol/L 136-145 L 79643630) Potassium POC (test code 4.4 mmol/L 3.5-5.1 = 30837556) Chloride POC (test code 100 mmol/L 98-107 = 66322649) TCO2 POC (test code = 17 mmol/L 21-32 L Physic aylin Notified 95554443) Urea Nitrogen POC (test 36 mg/dL 7-18 H code = 95021414) Glucose POC (test code = 114 mg/dL 74-106 H 78867354) Hemoglobin POC (test 11.9 g/dL 12-16 L code = 67669914) Hematocrit POC (test 35.0 % 37.0-47.0 L code = 41211727) Lab Interpretation (test Abnormal code = 43245-7) [facility] POC docked [id number] 13:48:46 Test Item Value Reference Range Interpretation Comments Sodium POC (test code = 126 mmol/L 136-145 L 64124654) Potassium POC (test code 4.4 mmol/L 3.5-5.1 = 52404944) Chloride POC (test code 100 mmol/L 98-107 = 96531642) TCO2 POC (test code = 17 mmol/L 21-32 L Physic aylin Notified 54066765) Urea Nitrogen POC (test 36 mg/dL 7-18 H code = 11174407) Glucose POC (test code = 114 mg/dL 74-106 H 26104071) Hemoglobin POC (test 11.9 g/dL 12-16 L code = 71719939) Hematocrit POC (test 35.0 % 37.0-47.0 L code = 32102404) Lab Interpretation (test Abnormal code = 07863-6) [facility] POC docked [id number] 13:48:46 Test Item Value Reference Range Interpretation Comments Sodium POC (test code = 126 mmol/L 136-145 L 91552456) Potassium POC (test code 4.4 mmol/L 3.5-5.1 = 23850949) Chloride POC (test code 100 mmol/L 98-107 = 85755094) TCO2 POC (test code = 17 mmol/L 21-32 L Physic aylin Notified 84963231) Urea Nitrogen POC (test 36 mg/dL 7-18 H code = 93190555) Glucose POC (test code = 114 mg/dL 74-106 H 22257220) Hemoglobin POC (test 11.9 g/dL 12-16 L code = 82399815) Hematocrit POC (test 35.0 % 37.0-47.0 L code = 15604192) Lab Interpretation (test Abnormal code = 35216-8) [facility] POC docked [id number] 13:48:46 Test Item Value Reference Range Interpretation Comments Sodium POC (test code = 126 mmol/L 136-145 L 85278574) Potassium POC (test code 4.4 mmol/L 3.5-5.1 = 88606940) Chloride POC (test code 100 mmol/L 98-107 = 39557075) TCO2 POC (test code = 17 mmol/L 21-32 L Physic aylin Notified 82978284) Urea Nitrogen POC (test 36 mg/dL 7-18 H code = 76746625) Glucose POC (test code = 114 mg/dL 74-106 H 89334955) Hemoglobin POC (test 11.9 g/dL 12-16 L code = 63473384) Hematocrit POC (test 35.0 % 37.0-47.0 L code = 52332530) Lab Interpretation (test Abnormal code = 64590-3) [facility] ED-CoV-2 ORF1ab Resp Ql OLENA+[id number] 20:25:16 Test Item Value Reference Range Interpretation Comments Hospitalized? (test No code = 79150-0) ICU? (test code = No 59482-6) Symptomatic as No defined by CDC? (test code = 33466-2) Employed in No Healthcare? (test code = 40658-3) Resident in a No congregate care setting (including nursing homes, residential care for people with intellectual and developmental disabilities, psychiatric treatment facilities, group homes, board and care homes, homeless prison, foster care or other): (test code = 60517-0) SARS-CoV-2 ORF1ab NOT DETECTED Not Detected INTERPRETA TION: No Resp Ql OLENA+probe detectable levels of (test code = SARS-CoV-2 40843-1) Coronavirus (COVID-19) were present in this patient's [...] SARS-CoV-2 mole cular diagnostic assa y utilizes Director Of Midwifery/Staff Midwife Mediated Amplification ( TMA) technology to r apidly detect the SARS -CoV-2 (COVID-19) viru s from respiratory adriana ples. In accordance with\\XC2A0\\the FDA's guidance docume nt "Policy for Diagnostic Test s for Coronavirus Disease-2019 du [facility] the Public [facility]", ginger s test was developed, and its performance characteristics were verified by the [facility] molecular diagn ostics laboratory and is authorized for clinical diagno stic use. \\XC2A0\\Thi s laboratory is certified under the Clinical Labora tory Improvement Amendments (CLI A) as qualified to pe rform high complexity clinical labora tory testing. POCT VBG POC docked [id number] 11:16:15 Test Item Value Reference Range Interpretation Comments pH, Pankaj POC (test code 7.32 7.33-7.43 L = 45110337) pCO2,Pankaj POC (test code 31.0 See_Comment L [Au tomated = 64369286) message] The sy stem which generated this result transmitted reference range : 38 - 50 mmHg. The reference range was not used to interpret this result as normal/abnormal . PO2, Venous POC (BKR) 44 See_Comment L [Auto mated (test code = 38730600) [employer] ge] The system which generated this result transmitted reference range : 50 - 75 mm Hg. The reference range was not used to interpret this result as normal/abnormal . Ionized Calcium POC 1.24 mmol/L 1.15-1.29 (test code = 55299299) HCO3, Pankaj POC (test 16 mmol/L 22-26 L code = 44781476) TCO2 POC (test code = 17 mmol/L 21-32 L 46495534) Base Deficit, Pankaj POC -9 (test code = 59169959) Sample Type (test code IVEN Physi erik Notified = 56535207) % Sat, Pankaj POC (test 77 % code = 17734989) Lab Interpretation Abnormal (test code = 85898-0) [facility]BG POC docked [id number] 11:16:15 Test Item Value Reference Range Interpretation Comments pH, Pankaj POC (test code 7.32 7.33-7.43 L = 45063386) pCO2,Pankaj POC (test code 31.0 See_Comment L [Au tomated = 34520258) message] The sy stem which generated this result transmitted reference range : 38 - 50 mmHg. The reference range was not used to interpret this result as normal/abnormal . PO2, Venous POC (BKR) 44 See_Comment L [Auto mated (test code = 94554169) [employer]] The system which generated this result transmitted reference range : 50 - 75 mm Hg. The reference range was not used to interpret this result as normal/abnormal . Ionized Calcium POC 1.24 mmol/L 1.15-1.29 (test code = 65204283) HCO3, Pankaj POC (test 16 mmol/L 22-26 L code = 41989047) TCO2 POC (test code = 17 mmol/L 21-32 L 15727381) Base Deficit, Pankaj POC -9 (test code = 23961747) Sample Type (test code IVEN Physi erik Notified = 04123772) % Sat, Pankaj POC (test 77 % code = 76007566) Lab Interpretation Abnormal (test code = 54641-8) [facility] POC docked [id number] 11:16:15 Test Item Value Reference Range Interpretation Comments pH, Pankaj POC (test code 7.32 7.33-7.43 L = 66672675) pCO2,Pankaj POC (test code 31.0 See_Comment L [Au tomated = 72925488) message] The sy stem which generated this result transmitted reference range : 38 - 50 mmHg. The reference range was not used to interpret this result as normal/abnormal . PO2, Venous POC (BKR) 44 See_Comment L [Auto mated (test code = 31997969) messa ge] The system which generated this result transmitted reference range : 50 - 75 mm Hg. The reference range was not used to interpret this result as normal/abnormal . Ionized Calcium POC 1.24 mmol/L 1.15-1.29 (test code = 12315613) HCO3, Pankaj POC (test 16 mmol/L 22-26 L code = 16969813) TCO2 POC (test code = 17 mmol/L 21-32 L 14347572) Base Deficit, Pankaj POC -9 (test code = 91507739) Sample Type (test code IVFLORENCE Physi erik Notified = 99388151) % Sat, Pankaj POC (test 77 % code = 45630123) Lab Interpretation Abnormal (test code = 88310-0) [facility] POC docked [id number] 11:16:15 Test Item Value Reference Range Interpretation Comments pH, Pankaj POC (test code 7.32 7.33-7.43 L = 64193660) pCO2,Pankaj POC (test code 31.0 See_Comment L [Au tomated = 91976500) message] The sy stem which generated this result transmitted reference range : 38 - 50 mmHg. The reference range was not used to interpret this result as normal/abnormal . PO2, Venous POC (BKR) 44 See_Comment L [Auto mated (test code = 33304307) messa ge] The system which generated this result transmitted reference range : 50 - 75 mm Hg. The reference range was not used to interpret this result as normal/abnormal . Ionized Calcium POC 1.24 mmol/L 1.15-1.29 (test code = 39231070) HCO3, Pankaj POC (test 16 mmol/L 22-26 L code = 29369116) TCO2 POC (test code = 17 mmol/L 21-32 L 33202007) Base Deficit, Pankaj POC -9 (test code = 76478035) Sample Type (test code STEPAN valencia Notified = 69822338) % Sat, Pankaj POC (test 77 % code = 80790714) Lab Interpretation Abnormal (test code = 25992-5) [facility] POC docked [id number] 11:16:15 Test Item Value Reference Range Interpretation Comments pH, Pankaj POC (test code 7.32 7.33-7.43 L = 79764433) pCO2,Pankaj POC (test code 31.0 See_Comment L [Au tomated = 79781181) message] The sy stem which generated this result transmitted reference range : 38 - 50 mmHg. The reference range was not used to interpret this result as normal/abnormal . PO2, Venous POC (BKR) 44 See_Comment L [Auto mated (test code = 92478797) messa ge] The system which generated this result transmitted reference range : 50 - 75 mm Hg. The reference range was not used to interpret this result as normal/abnormal . Ionized Calcium POC 1.24 mmol/L 1.15-1.29 (test code = 02396179) HCO3, Pankaj POC (test 16 mmol/L 22-26 L code = 63035307) TCO2 POC (test code = 17 mmol/L 21-32 L 70826450) Base Deficit, Pankaj POC -9 (test code = 49832886) Sample Type (test code STEPAN valencia Notified = 44852219) % Sat, Pankaj POC (test 77 % code = 34869252) Lab Interpretation Abnormal (test code = 92321-7) [facility]BG POC docked [id number] 11:16:15 Test Item Value Reference Range Interpretation Comments pH, Pankaj POC (test code 7.32 7.33-7.43 L = 05895161) pCO2,Pankaj POC (test code 31.0 See_Comment L [Au tomated = 86148212) message] The sy stem which generated this result transmitted reference range : 38 - 50 mmHg. The reference range was not used to interpret this result as normal/abnormal . PO2, Venous POC (BKR) 44 See_Comment L [Auto mated (test code = 63509634) messa ge] The system which generated this result transmitted reference range : 50 - 75 mm Hg. The reference range was not used to interpret this result as normal/abnormal . Ionized Calcium POC 1.24 mmol/L 1.15-1.29 (test code = 12068136) HCO3, Pankaj POC (test 16 mmol/L 22-26 L code = 56074837) TCO2 POC (test code = 17 mmol/L 21-32 L 15215333) Base Deficit, Pankaj POC -9 (test code = 19614566) Sample Type (test code IVFLORENCE Physi erik Notified = 43691187) % Sat, Pankaj POC (test 77 % code = 07208659) Lab Interpretation Abnormal (test code = 04405-2) [facility] POC docked [id number] 11:16:15 Test Item Value Reference Range Interpretation Comments pH, Pankaj POC (test code 7.32 7.33-7.43 L = 76041345) pCO2,Pankaj POC (test code 31.0 See_Comment L [Au tomated = 54066342) message] The sy stem which generated this result transmitted reference range : 38 - 50 mmHg. The reference range was not used to interpret this result as normal/abnormal . PO2, Venous POC (BKR) 44 See_Comment L [Auto mated (test code = 80447951) [employer]] The system which generated this result transmitted reference range : 50 - 75 mm Hg. The reference range was not used to interpret this result as normal/abnormal . Ionized Calcium POC 1.24 mmol/L 1.15-1.29 (test code = 11353625) HCO3, Pankaj POC (test 16 mmol/L 22-26 L code = 96673966) TCO2 POC (test code = 17 mmol/L 21-32 L 49756747) Base Deficit, Pankaj POC -9 (test code = 03625255) Sample Type (test code IVFLORENCE Physi erik Notified = 65262696) % Sat, Pankaj POC (test 77 % code = 28077735) Lab Interpretation Abnormal (test code = 70902-4) [facility] POC docked [id number] 11:16:15 Test Item Value Reference Range Interpretation Comments pH, Pankaj POC (test code 7.32 7.33-7.43 L = 71849580) pCO2,Pankaj POC (test code 31.0 See_Comment L [Au tomated = 53755350) message] The sy stem which generated this result transmitted reference range : 38 - 50 mmHg. The reference range was not used to interpret this result as normal/abnormal . PO2, Venous POC (BKR) 44 See_Comment L [Auto mated (test code = 31676897) messa ge] The system which generated this result transmitted reference range : 50 - 75 mm Hg. The reference range was not used to interpret this result as normal/abnormal . Ionized Calcium POC 1.24 mmol/L 1.15-1.29 (test code = 18886333) HCO3, Pankaj POC (test 16 mmol/L 22-26 L code = 62976486) TCO2 POC (test code = 17 mmol/L 21-32 L 84161749) Base Deficit, Pankaj POC -9 (test code = 80356574) Sample Type (test code IVFLORENCE Physi erik Notified = 59010205) % Sat, Pankaj POC (test 77 % code = 19992420) Lab Interpretation Abnormal (test code = 40109-3) [place] [address] LEAD [id number] 20:59:5612 LEAD EKG FOR [facility] Test Date: 0577-39-38Avg Name: DORA JOSEPH Department: 5520Patient ID: [id number] Room: Gender: M Photocopy Operator: [id number]: 1970 Requested By: TANJA Garza Number: [id number] Reading MD: Chiara Calles MeasurementsIntervals Sunbright Rate: 75 P: 84PR: 153 QRS: 67QRSD: 104 T: 77QT: 344 QTc: 373 Interpretive StatementsSINUS RHYTHMPOSSIBLE RIGHT VENTRICULAR CONDUCTION DELAY [RSR (QR) IN V1/V2]Electronically Signed On 01-09-2022 8:27:19 CDT by Chiara Redding [place] [address] LEAD [id number] 20:59:5612 LEAD EKG FOR [facility] Test Date: 0968-00-51Sip Name: DORA JOSEPH Department: 5520Patient ID: [id number] Room: Gender: M Photocopy Operator: [id number]: 1970 Requested By: TANJA Garza Number: [id number] Reading MD: Chiara Calles MeasurementsIntervals Sunbright Rate: 75 P: 84PR: 153 QRS: 67QRSD: 104 T: 77QT: 344 QTc: 373 Interpretive StatementsSINUS RHYTHMPOSSIBLE RIGHT PANKAJ TRICULAR CONDUCTION DELAY [RSR (QR) IN V1/V2]Electronically Signed On 01-09-2022 8:27:19 CDT by Chiara Redding Bwqgbw70 LEAD [id number] 20:59:5612 LEAD EKG FOR [facility] Test Date: 7420-16-95Bbz Name: DORA JOSEPH Department: 5520Patient ID: [id number] Room: Gender: M Photocopy Operator: [id number]: 1970 Requested By: TANJA Garza Number: [id number] Reading MD: Chiara Calles MeasurementsIntervals Sunbright Rate: 75 P: 84PR: 153 QRS: 67QRSD: 104 T: 77QT: 344 QTc: 373 Interpretive StatementsSINUS RHYTHMPOSSIBLE RIGHT VENTRICULAR CONDUCTION DELAY [RSR (QR) IN V1/V2]Electronically Signed On 01-09-2022 8:27:19 CDT by Chiara DavisCr[employer]12 LEAD [id number] 20:59:5612 LEAD EKG FOR [facility] Test Date: 7883-27-93Ojt Name: DORA JOSEPH Department: 5520Patient ID: [id number] Room: Gender: M Photocopy Operator: [id number]: 1970 Requested By: TANJA Garza Number: [id number] Reading MD: Chiara Calles MeasurementsIntervals Sunbright Rate: 75 P: 84P R: 153 QRS: 67QRSD: 104 T: 77QT: 344 QTc: 373 Interpretive StatementsSINUS RHYTHMPOSSIBLE RIGHT VENTRICULAR CONDUCTION DELAY [RSR (QR) IN V1/V2]Electronically Signed On 01-09-2022 8:27:19 CDT by ChiaraKPAbakariSEVEN Networks12 LEAD [id number] 20:59:5612 LEAD EKG FOR [facility] Test Date: 7077-56-83Fys Name: DORA PAEZRY Department: 5520Patient ID: [id number] Room: Gender: M Photocopy Operator: [id number]: 1970 Requested By: TANJA Garza Number: [id number] Reading MD: Chiara Calles MeasurementsIntervals Sunbright Rate: 75 P: 84PR: 153 QRS: 67QRSD: 104 T: 77QT: 344 QTc: 373 Interpretive StatementsSINUS RHYTHMPOSSIBLE RIGHT VENTRICULAR CONDUCTION DELAY [RSR (QR) IN V1/V2]Electronically Signed On 01-09-2022 8:27:19 CDT by Friday12 LEAD [id number] 20:59:5612 LEAD EKG FOR [facility] Test Date: 6355-05-40Dmb Name: DORA JOSEPH Department: 5520Patient ID: [id number] Room: Gender: M Photocopy Operator: [id number]: 1970 Requested By: TANJA Garza Number: [id number] Reading MD: Chiara Calles MeasurementsIntervals Sunbright Rate: 75 P: 84PR: 153 QRS: 67QRSD: 104 T: 77QT: 344 QTc: 373 Interpretive StatementsSINUS RHYTHMPOSSIBLE RIGHT VENT RICULAR CONDUCTION DELAY [RSR (QR) IN V1/V2]Electronically Signed On 01-09-2022 8:27:19 CDT by Friday12 LEAD [id number] 20:59:5612 LEAD EKG FOR [facility] Test Date: 7470-97-36Tjc Name: DORA PAEZRY Department: 5520Patient ID: [id number] Room: Gender: M Photocopy Operator: [id number]: 1970 Requested By: TANJA Garza Number: [id number] Reading MD: Chiara Calles MeasurementsIntervals Sunbright Rate: 75 P: 84PR: 153 QRS: 67QRSD: 104 T: 77QT: 344 QTc: 373 Interpretive StatementsSINUS RHYTHMPOSSIBLE RIGHT VENTRICULAR CONDUCTION DELAY [RSR (QR) IN V1/V2]Electronically Signed On 01-09-2022 8:27:19 CDT by Friday12 LEAD [id number] 20:59:5612 LEAD EKG FOR [facility] Test Date: 2160-85-03Yvs Name: DORA JOSEPH Department: 5520Patient ID: [id number] Room: Gender: M Photocopy Operator: [id number]: 1970 Requested By: TANJA Garza Number: [id number] Reading MD: Chiara Calles MeasurementsIntervals Sunbright Rate: 75 P: 84PR: 153 QRS: 67QRSD: 104 T: 77QT: 344 QTc: 373 Interpretive StatementsSINUS RHYTHMPOSSIBLE RIGHT VENTRICULAR CONDUCTION DELAY [RSR (QR) IN V1/V2]Electronically Signed On 01-09-2022 8:27:19 CDT by Chiara [facility] W/AUTO [id number] 23:52:00 Test Item Value Reference Range Interpretation [...] = MX#) 0.8 k/mm3 0.1-0.8 N LIVER [id number] 20:04:00 Test Item Value Reference Range Interpretation Comments TOTAL PROTEIN (test code 6.7 GM/DL 5.0-8.0 N Per formed by = PROT) 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 [facility] ALBUMIN (test code = 3.4 [...] 67 UNITS/L 25-125 N LYNDSEY) BASIC METABOLIC [id number] 19:54:00 Test Item Value Reference Range Interpretation [...] POCGLU) 81 MG/DL - CT ABD PELVIS [id number] 00:00:00 [facility] 1970 Sex: M Name: MARIA ISABEL JOSEPH FSED : 1970 Age/S: 51 / M [address] [facility] Unit #: [id number] Loc: [place] [address] Phys: Raffaele Levi MD Acct: [id number] Dis Date: Status: PRE ER PHONE #: Exam Date: 09/23/20211999 FAX #: Reason: RUQ PAIN, VOMITING EXAMS: CPT CODE: [id number] CT ABD PELVIS W/CONT 69912 PROCEDURE INFORMATION: Exam: CT Abdomen And Pelvis [...] Reproductive: Unremarkable as visualized. Bones/joints: No suspicious osseousabnormality identified. IMPRESSION: 1. Nonspecific mild to moderate wall thickening of few left PAGE1 Signed Report (CONTINUED) Name: MARIA ISABEL JOSEPH FSED : 1970 Age/S: 51 / M [address] [facility] Unit #: [id number] Loc: [place] [address] Phys: Raffaele Levi MD Acct: [id number] Dis Date: Status: PRE ER PHONE #: Exam Date: 09/23/20211999 FAX #: Reason: RUQ PAIN, VOMITING EXAMS: CPT CODE: [id number] CT ABD PELVIS W/CONT 15517 <Continued> abdominal small bowel loops may relate [...] D/T: S: 09/23/2021 (2049) PAGE 2 Signed Report COMPREHENSIVE METABOLIC [id number] 11:51:00 Test Item Value Reference Range Interpretation [...] Units/L 50.0-136.0 N code = ALKP) PROTHROMBIN [id number] 11:41:00 Test Item Value Reference Range Interpretation Comments PROTHROMBIN TIME 10.9 SECONDS 9.9-12.8 N PATIENT (test code = PTP) INTERNATIONAL NORMAL 0.9 0.89-1.14 N THE INR IS TO BE USED RATIO (test code = ONLY FOR MONITORING INR) ORAL ANTICOAGULANTTH ERAPY. THE FOLLOWING A RE SUGGESTED RANGE S FROM [facility] LEGE OF CHEST PHYSICIANS:LOLITA CATION INR [...] PREVENT RECURRENT INFAR CT) 2.5 - 3.0 VALVU LAR HEART DISEASE 2 .0 - 3.0 ATRIAL FIBR ILATION 2.0 - 3.0BILEAF LET MECHANICAL VALV E IN AORTIC POSITION 2.0 - 3.0MECHANICAL PROSTHETIC VALV ES (HIGH RISK) 2.5 - 3.5PRESENCE OF LUPUS ANTICOAGULANT O R ANTIPHOSPHOLIPI D ANTIBODIES 2.5 - 3.5 CBC W/AUTO [id number] 11:36:00 Test Item Value Reference Range Interpretation [...] X10 3uL 0.00-0.01 N NRBC#) CBC W/AUTO [id number] 09:48:00 Test Item Value Reference Range Interpretation [...] = MX#) 0.8 k/mm3 0.1-0.8 N GLUCOSE [id number] 06:12:00 Test Item Value Reference Range Interpretation Comments GLUCOSE BEDSIDE (test 129 MG/DL 70-110 H Perfor med by certified code = GLUBED) 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 [facility] BASIC METABOLIC [id number] 05:21:00 Test Item Value Reference Range Interpretation [...] (test code = POCGLU) 92 MG/DL GLUCOSE [id number] 05:19:00 Test Item Value Reference Range Interpretation Comments GLUCOSE BEDSIDE (test 51 MG/DL 70-110 L Perfor med by certified code = GLUBED) 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 [facility] CBC W/AUTO [id number] 14:00:00 Test Item Value Reference Range Interpretation [...] MX#) 0.2 k/mm3 0.1-0.8 N CBC W/AUTO [id number] 00:07:00 Test Item Value Reference Range Interpretation [...] = LY#) 2.4 K/uL 1.0-3.8 N LIVER [id number] 16:14:00 Test Item Value Reference Range Interpretation Comments TOTAL PROTEIN (test code 7.5 GM/DL 5.0-8.0 N Per formed by = PROT) 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 [facility] ALBUMIN (test code = 3.9 [...] 65 UNITS/L 25-125 N LYNDSEY) BASIC METABOLIC [id number] 16:07:00 Test Item Value Reference Range Interpretation [...] POCGLU) 96 MG/DL - XR CHEST 1 [id number] 00:00:00 [facility] : 1970 Sex: MFAX: Steve Urias MD [phone] [place]: [address]: PRE Name: DORA JOSEPH FSED : 1970 Age/S: 51/M [address] [facility] Unit #: [id number] Loc: [place], [place] [address] Phys: Steve Urias MD Acct: [id number] Dis Date: Status: PRE ER PHONE #: Exam Date: 06/27/2021 7604 FAX #: Reason: Abdominal PainEXAMS: CPT CODE: [id number] XR CHEST 1 V 82597 PROCEDURE INFORMATION: Exam: XR Chest Exam date [...] M.D. CC: Steve Urias MD Technologist: RT Alanna(R)(CT) Trnscrd Date/Time/By: 06/27/2021 (1558) : By: [email or web address] Orig Print D/T: S: 06/27/2021 (8099) PAGE 1 Signed Report- CT ABD PELVIS [id number] 00:00:00 [facility] DORA JOSEPH : 1970 Sex: MName: DORA JOSEPH FSED : 1970 Age/S: 51 / M [address] [facility] Unit #: [id number] Loc: [place] [address] Phys: Steve Urias MD Acct: [id number] Dis Date: Status: REG ER PHONE #: Exam Date: 06/27/2021 1627 FAX #: Reason: pain in region of colostomy EXAMS: CPT CODE: [id number] CT ABD PELVIS W/CONT 55557 PROCEDURE INFORMATION: Exam: CT Abdomen And Pelvis [...] : 1970 Age/S: 51 / M [address] [facility] Unit #: [id number] Loc: [place] [address] Phys: Steve Urias MD Acct: [id number] Dis Date: Status: REG ER PHONE #: Exam Date: 06/27/2021 1625 FAX #: Reason:pain in region of colostomy EXAMS: CPT CODE: [id number] CT ABD PELVIS W/CONT 90661 <Continued>with ileostomy prolapse. There is no evidence of associated intestinal obstruction. 2. No additionalacute CT abnormalities of the abdomen or pelvis are identified. SL:131 at 1650 Reported and signed by: Marco Raman M.D. CC: Steve Urias MD Technologist:RT Alanna(R)(CT) CTDI: DLP: Trnscb Date/Time: 06/27/2021 (1649) t.FLEXR.DMM Orig Print D/T: S: 06/27/2021 (1649) PAGE 2 Signed ReportCBC W/AUTO [id number] 09:20:00 Test Item Value Reference Range Interpretation [...] (test code NO = MDIFF) CBC W/AUTO [id number] 08:59:00 Test Item Value Reference Range Interpretation [...] REQUIRED (test code = MDIFF) BASIC METABOLIC [id number] 08:21:00 Test Item Value Reference Range Interpretation [...] 8.4 mg/dL 8.0-10.5 N CA) BASIC METABOLIC [id number] 08:34:00 Test Item Value Reference Range Interpretation [...] 8.4 mg/dL 8.0-10.5 N CA) CBC W/AUTO [id number] 07:41:00 Test Item Value Reference Range Interpretation [...] = MDIFF) UA RFLX MICR CULT IF [id number] 10:10:00 Test Item Value Reference Range Interpretation [...] Suprapubic Pain Temperature > 100.4 FSpecimen Description: [facility] STREAMBASIC METABOLIC [id number] 04:13:00 Test Item Value Reference Range Interpretation [...] mg/dL 8.0-10.5 N CA) Coronavirus 2019 nCoV [id number] 22:03:00 Test Item Value Reference Range Interpretation Comments Coronavirus 2019 Negative Negative Performed b y certified nCoV Bedside (service tester at [facility] code = CtrNegative res ults should NCDNI63UAIDS) be treated as presumptive and, ifinconsis tent with clinical signs and symptoms or necessaryfor patient management, fifi uld be tested with an alternativemole cular assay. Negative result s do not preclude VAJB-UjG-4sayqg tion and should not be u sed as the sole basis forp atient management deci sions. Negative result s should beconsidered in the context of a patient's recent exposures,histo ry, presence of clinical sig ns and symptoms consis tentwith COVID-19. CBC W/AUTO [id number] 21:11:00 Test Item Value Reference Range Interpretation [...] MX#) 0.6 k/mm3 0.1-0.8 N BASIC METABOLIC [id number] 19:00:00 Test Item Value Reference Range Interpretation [...] POCGLU) 92 MG/DL - CT ABD PELVIS W/[id number] 00:00:00 [facility] : 1970 Sex: MName: DORA JOSEPH FSED : 1970 Age/S: 51 / M [address] [facility] Unit #: [id number] Loc: [place] [address] Phys: Marcello Benoit MD Acct: [id number] Dis Date: Status: REG KARLIE #: Exam Date: 04/28/20211913 FAX #: Reason: epigastric and LLQ pain, R-sided colostomy EXAMS:CPT CODE: [id number] CT ABD PELVIS W/CONT 62535 PROCEDURE INFORMATION: Exam: CT Abdomen And Pelvis [...] DORA JOSEPH FS : 1970 Age/S: 51 /M [address] [facility] Unit #: [id number] Loc: [place] [address] Phys: Marcello Benoit MD Acct: [id number] Dis Date: Status: REG ER PHONE #: Exam Date: 04/28/20211913 FAX #: Reason: epigastric a nd LLQ pain, R-sided colostomy EXAMS: CPT CODE: [id number] CT ABD PELVIS W/CONT 24148 <Continued> Reproductive: Unremarkable as visualized. Bones/joints: Unremarkable. No acute fracture. Soft tissues: Unremarkable. IMPRESSION: 1. 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 2. Mild long segment bowel wall thickening/mucosal prominence compatible with an enteritis. No evidence for obstruction. at 1956 Reported and signed by: Hector Nichols M.D. CC: Marcello Benoit MD Technologist:Stephanie Albrecht, RT(R)(CT) CTDI: DLP: Trnscb Date/Time: 04/28/2021 (1955) IsabelaL Orig Print D/T: S: 04/28/2021 (1955) PAGE 2 Signed Report- XR ABDOMEN 1 [id number] 12:53:00 Name: DORA JOSEPH [facility] : 1970 Age/S: 50 / M [address] Unit #: [id number] Loc: [place] [address] 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 Acct: [id number] Dis Date: Status: ADM IN PHONE #: [phone] Exam Date: 02/25/2020 1036 FAX #: Reason: abdominal distention EXAMS: CPT: [id number] XR ABDOMEN 1 V 74482 Fluoro Time: DAP (Gy m2): Air Kerma [...] appear normal. Impression: Redemonstrated are markedly dilated, gas- filled small and large bowel loops, filling and distending the abdomen. These appear progressed as prior exam with increased distention of small bowel loops in the left lower quadrant (not previously seen) al5696 Reported and signed by: Sol Paige MD CC: Andre Solano; Mark Perea MD PAGE 1 Signed Report Name: DORA JOSEPH [place] : 1970 Age/S: 50 / M [address] Unit #: [id number] Loc: [place] [address] 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 TUBE COREMAKER Acct: [id number] Dis Date:Status: ADM IN PHONE #: [phone] Exam Date: 02/25/2020 1036 FAX #: Reason: abdominal distentionEXAMS: CPT: [id number] XR ABDOMEN 1 V 30801 Fluoro Time: DAP (Gy m2): Air Kerma (mGy): <Continued> Technologist: Nichole Dill, RT(R) Trnscb Date/Time: 02/25/2020 (1763) RafatR.EFM1 Orig Print D/T: S: 02/25/2020 (1111) PAGE 2 Signed Report COMPREHENSIVE METABOLIC [id number] 08:20:00 Test Item Value Reference Range Interpretation [...] 50-136 L TOTAL (test code = ALKP) [id number] 08:20:00 Test Item Value Reference Range Interpretation Comments MAGNESIUM (test code = MAG) 2.2 MG/DL 1.8-2.4 N THYROID STIMULATING [id number] 08:20:00 Test Item Value Reference Range Interpretation Comments THYROID STIMULATING HORMONE 5.430 mcIU/ML 0.340-4.820 H (test code = TSH) CBC W/AUTO [id number] 07:55:00 Test Item Value Reference Range Interpretation [...] N NRBC#) UA RFLX MICR CULT IF [id number] 12:29:00 Test Item Value Reference Range Interpretation [...] culture: Suprapubic PainUA RFLX MICR CULT IF [id number] 12:29:00 Test Item Value Reference Range Interpretation [...] for culture: Suprapubic PainCOVID 19 Asymptomatic IH [id number] 22:09:00 Test Item Value Reference Range Interpretation [...] tent with COVID-19. - CT ABD PELVIS W/[id number] 21:10:00 Name: DORA JOSEPH [facility] : 1970 Age/S: 50 / M [address] Unit #: [id number] Loc: [place] [address] Phys: Evin Castellanos MD Acct: [id number] Dis Date: Status: REG ER PHONE #: [phone] Exam Date: 02/23/20204 FAX #: Reason: diffuse abdomen pain and distention EXAMS: CPT: [id number] CT ABD PELVIS W/CONT 45301 EXAM: - CT ABD PELVIS W/CONT LOCATION: [...] 1 Signed Report (CONTINUED) Name: ADINA JOSEPH [facility] : 1970 Age/S: 50 / M [address] [facility] Unit #: [id number] Loc: [place] [address] Phys: Evin Castellanos MD Acct: [id number] Dis Date: Status: REG ER PHONE #: [phone] Date: 02/23/2020 FAX #: Reason: diffuse abdomen pain and distention EXAMS: CPT: [id number] ABD PELVIS W/CONT 27051 <Continued> CT. No bowel wall thickening or [...] by: Marybel José M.D. CC: Susana Meza ECOSYSTEM ECOLOGY PROFESSOR; Carl Luevano MD Technologist:Rudy Zuniga, RT(R)(CT)(MRI) CTDI: DLP: Trnscb Date/Time: 02/23/2020 (2109) t.SDR.TH15 Orig Print D/T: S: 02/23/2020 (2112) PAGE 2 Signed Report- XR CHEST 1 [id number] 21:03:00 Name: DORA JOSEPH [place] : 1970 Age/S: 50 / M [address] Unit #: [id number] Loc: [place] [address] Phys: Evin Castellanos MD Acct: [id number] Dis Date: Status: REG ERPHONE #: [phone] Exam Date: 02/23/20202055 FAX #: Reason: Code Sepsis EXAMS: CPT: [id number] XR CHEST 1 V 01446 Fluoro Time: DAP (Gy m2): Air Kerma (mGy): DICTATION LOCATION: 8 HISTORY: Male, 50 years of age with Code Sepsis, abdomen pain EXAM: CHEST X-RAY, ONE VIEW COMPARISON: 12/13/2019 COMMENT: Frontal view of the chest is provided. Left diaphragm is chronically elevated. There is chroniccolonic air distention which has been present since baseline chest and abdomen x-rays performed 02/27/2013. No focal infiltrate, consolidation, mass lesion, or effusion is seen. Cardiac silhouette is within normal limits. No acute bony abnormalities. IMPRESSION: 1. No acute cardiopulmonary disease. 2. Ch ronic colonic air distention unchanged. at 2103 Reported and signed by: Monica Quijano MD CC: Susana Meza ECOSYSTEM ECOLOGY PROFESSOR; Carl Luevano MD PAGE 1 Signed Report Name: DORA JOSEPH [facility] : 1970 Age/S: 50 / M [address] Unit #: [id number] Loc: [place] [address] Phys: Evin Castellanos MD Acct: [id number] Dis Date: Status: REG ER PHONE #: [phone] Exam Date: 02/23/20202055 FAX #: Reason: Code Sepsis EXAMS: CPT: [id number] XR CHEST 1 V 24323 Fluoro Time: DAP (Gy m2): Air Kerma (mGy): <Continued> Technologist: Rudy Zuniga RT(R)(CT)(MRI) Trnscb Date/Time: 02/23/2020 (2102) tDARWINR.CLW Orig Print D/T: S: 02/23/2020 (2106) PAGE [...] 8.5-10.1 N Completed by Nursing: NOHEPATIC FUNCTION [id number] 20:02:00 Test Item Value Reference Range Interpretation [...] N code = ALKP) Completed by Nursing: [id number] 20:02:00 Test Item Value Reference Range Interpretation Comments LIPASE (test code = LIP) 97 Unit/L 114-286 L Completed by Nursing: [id number] 20:02:00 Test Item Value Reference Range Interpretation [...] brittani yby method. Completed by Nursing: NOLACTIC [id number] 19:59:00 Test Item Value Reference Range Interpretation Comments LACTIC ACID (test code = LACT) 1.2 mmol/L 0.4-2.0 N CBC W/AUTO [id number] 19:46:00 Test Item Value Reference Range Interpretation [...] CRITERIA = MDIFF) - XR ABDOMEN 2 [id number] 06:22:00 Name: DORA JOSEPH [facility] : 1970 Age/S: 50 / M [address] Unit #: [id number] Loc: [place] [address] Phys: León Robertson MD Acct: [id number] Dis Date: Status: ADM INPHONE #: [phone] Exam Date: 02/19/2020 0440 FAX #: Reason: megacolon EXAMS: CPT: [id number] XR ABDOMEN 2 V 78961 Fluoro Time: DAP (Gy m2): Air Kerma [...] PAGE 1 Signed Report Name: DORA JOSEPH [facility] : 1970 Age/S: 50 / M [address] Unit #: [id number] Loc: [place] [address] Phys: León Robertson MD Acct: [id number] Dis Date: Status: ADM IN PHONE #: [phone] Exam Date: 02/19/2020 0440 FAX #: Reason: megacolon EXAMS:CPT: [id number] XR ABDOMEN 2 V 76094 Fluoro Time: DAP (Gy m2): Air Kerma (mGy): <Continued> Technologist: Carrie Barnett, RT(R)(CT) Trnscb Date/Time: 02/19/2020 (06) tJUDSONAL7 Orig Print D/T:S: 02/19/2020 (0694) PAGE 2 Signed ReportBASIC METABOLIC [id number] 05:52:00 Test Item Value Reference Range Interpretation [...] CA) 8.5 MG/DL 8.5-10.1 N CBC W/AUTO [id number] 05:40:00 Test Item Value Reference Range Interpretation [...] NO DIFF/SCN CRITERIA = MDIFF) BASIC METABOLIC [id number] 06:52:00 Test Item Value Reference Range Interpretation [...] CA) 8.3 MG/DL 8.5-10.1 L CBC W/AUTO [id number] 06:39:00 Test Item Value Reference Range Interpretation [...] DIFF/SCN CRITERIA = MDIFF) Coronavirus 2018 nCoV [id number] 05:35:00 Test Item Value Reference Range Interpretation Comments Coronavirus 2018 nCoV Negative NEGATIVE Per ca nufacturer, Bedside (test code = negativ e results should COVNONPUIBED) be treated aspresumptive a nd, if inconsistent wi th clinical signs andsymptoms or necessary for p atient management, fifi dominguez betested with a n alternative mol ecular assay. Negative resultsdo not p reclude SARS-CoV-2 infe ction and should not be usedas the sole basis for patient man agement decisions. Nega tive results should be considered in t he context of apat ient's recent exposure s, history, presen ce of clinicalsigns a nd symptoms consis tent with COVID-19. - XR ABDOMEN 1 [id number] 07:32:00 Name: DORA JOSEPH [facility] : 1970 Age/S: 49 / M [address] Unit #: [id number] Loc: [place] [address] Phys: Jay Mayo MD Acct: [id number] Dis Date: Status: ADM IN PHONE #: [phone] Exam Date: 01/10/2020 0658 FAX #: Reason: follow up colonic ileus EXAMS: CPT: [id number] XR ABDOMEN 1 V 09452 Fluoro Time: DAP (Gy m2): Air Kerma [...] PAGE 1 Signed Report Name: DORA JOSEPH [facility] : 1970 Age/S: 49 / M [address] Unit #: [id number] Loc: [place] [address] Phys: Jay Mayo Acct: [id number] Dis Date: Status: ADM IN PHONE #: [phone] Exam Date: 01/10/2020 0658 FAX #: Reason: follow up colonic ileus EXAMS: CPT: [id number] XR ABDOMEN 1 V 00365 Fluoro Time: DAP (Gy m2): Air Kerma (mGy): <Continued> Technologist: Bakari De Leon RT(R)(CT) Trnscb Date/Time: 01/10/2020(0732) GarettCB5 Orig Print D/T: S: 01/10/2020 (0790) PAGE 2 Signed ReportCOMPREHENSIVE METABOLIC [id number] 05:56:00 Test Item Value Reference Range Interpretation [...] TOTAL (test code = ALKP) CBC W/AUTO [id number] 05:42:00 Test Item Value Reference Range Interpretation [...] = NO DIFF/SCN CRITERIA MDIFF) BASIC METABOLIC [id number] 06:59:00 Test Item Value Reference Range Interpretation [...] code = CA) 8.5 MG/DL 8.5-10.1 N [id number] 06:59:00 Test Item Value Reference Range Interpretation Comments MAGNESIUM (test code = MAG) 2.2 MG/DL 1.8-2.4 PROTHROMBIN [id number] 06:39:00 Test Item Value Reference Range Interpretation Comments PT PATIENT (test code = PTP) 13.1 SECONDS 9.3-12.9 H INTERNATIONAL NORMAL RATIO 1.16 INR Unit 0.8-1.2 N (test code = INR) CBC W/AUTO [id number] 06:22:00 Test Item Value Reference Range Interpretation [...] DIFF/SCN CRITERIA MDIFF) - XR ABDOMEN 1 [id number] 05:39:00 Name: DORA JOSEPH [facility] : 1970 Age/S: 49 / M [address] Unit #: [id number] Loc: [place] [address] 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 Acct: [id number] Dis Date: Status: ADM IN PHONE #: [phone] Exam Date: 01/09/2020 05 FAX #: Reason: colonic ileus/obstruction EXAMS: CPT: [id number] XR ABDOMEN 1 V 03326 Fluoro Time: DAP (Gy m2): Air Kerma [...] PAGE 1 Signed Report Name: DORA JOSEPH [facility] : 1970 Age/S: 49 / M [address] Unit #: [id number] Loc: [place] [address] 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 TUBE COREMAKER Acct: [id number] Dis Date: Status: ADM IN PHONE #: [phone] Exam Date: 01/09/2020 0523 FAX #: Reason: colonic ileus/obstruction EXAMS: CPT: [id number] XR ABDOMEN 1 V 05311 Fluoro Time: DAP (Gy m2): Air Kerma (mGy): <Continued> Technologist: Carrie Barnett, RT(R)(CT) Trnscb Date/Time: 01/09/2020 (0539) tJUDSONFC Orig Print D/T: S: 01/09/2020 (0542) PAGE 2 Signed ReportCoronavirus 2018 [facility] [id number] 22:38:00 Test Item Value Reference Range Interpretation Comments Coronavirus 2019 nCoV Bedside (test Negative Negative code = [id number]) Emergent procedure? YESCoronavirus 2019 nCo [id number] 22:38:00 Test Item Value Reference Range Interpretation Comments Coronavirus 2019 nCoV Bedside (test Negative Negative code = [id number]) Emergent procedure? YESBASIC METABOLIC [id number] 18:42:00 Test Item Value Reference Range Interpretation [...] CA) 8.5 MG/DL 8.5-10.1 N CBC W/AUTO [id number] 10:50:00 Test Item Value Reference Range Interpretation [...] = NO DIFF/SCN CRITERIA MDIFF) COMPREHENSIVE METABOLIC [id number] 10:46:00 Test Item Value Reference Range Interpretation [...] 50-136 N TOTAL (test code = ALKP) [id number] 10:46:00 Test Item Value Reference Range Interpretation Comments MAGNESIUM (test code = MAG) 2.6 MG/DL 1.8-2.4 H COMPREHENSIVE METABOLIC [id number] 10:34:00 Test Item Value Reference Range Interpretation [...] TOTAL (test Unit/L 50-136 code = ALKP) [id number] 10:34:00 Test Item Value Reference Range Interpretation Comments MAGNESIUM (test code = MAG) MG/DL 1.8-2.4 - XR ABDOMEN 1 [id number] 08:28:00 Name: DORA JOSEPH MARIA ISABEL [facility] : 1970 Age/S: 49 / M [address] Unit #: [id number] Loc: [place] [address] Phys: Yas Edwards MD Acct: [id number] Dis Date: Status: ADM IN PHONE #: [phone] Exam Date: 01/08/2020 0510 FAX #: Reason: ileus EXAMS: CPT: [id number] XR ABDOMEN 1 V 26521 Fluoro Time: DAP (Gy m2): Air Kerma (mGy): KUB Location T 18 INDICATION: Ileus, bowel obstruction Comparison 01/07/2020 and 01/06/[address] Significant gaseous distention of the colon, may have increased slightly from the prior studies. Apparent minimal small bowel gas inthe mid abdomen. IMPRESSION: Generalized ileus versus distal obstruction. at 0828 Reported and signed by: Bernarod Ochoa M.D. CC: Mark Perea MD; Yas Edwards MD PAGE 1 Signed Report [facility]: [facility] JOSEPH [facility] 1970 Age/S: 49 / M [address] Unit #: [id number] Loc: [place] [address] Phys: Berta Edwards Acct: [id number] Dis Date: Status: ADM IN PHONE #: [phone] Exam Date: 01/08/2020 0528 FAX#: Reason: ileus EXAMS: CPT: [id number] XR ABDOMEN 1 V 44676 Fluoro Time: DAP (Gy m2): Air Kerma (mGy): <Continued> Technologist: Carrie Barnett, RT(R)(CT); ... Trnscb Date/Time: 01/08/2020 (827) t.TIGRE Orig Print D/T: S: 01/08/2020 (830) PAGE 2 Signed ReportCOMPREHENSIVE METABOLIC [id number] 07:08:00 Test Item Value Reference Range Interpretation [...] 50-136 L TOTAL (test code = ALKP) [id number] 07:08:00 Test Item Value Reference Range Interpretation Comments MAGNESIUM (test code = MAG) 1.3 MG/DL 1.8-2.4 L COMPREHENSIVE METABOLIC [id number] 05:16:00 Test Item Value Reference Range Interpretation [...] 50-136 L TOTAL (test code = ALKP) [id number] 05:16:00 Test Item Value Reference Range Interpretation Comments MAGNESIUM (test code = MAG) 1.3 MG/DL 1.8-2.4 L CBC W/AUTO [id number] 05:02:00 Test Item Value Reference Range Interpretation [...] (test code = NO DIFF/SCN CRITERIA MDIFF) [id number] 16:51:00 Test Item Value Reference Range Interpretation Comments MAGNESIUM (test code = MAG) 2.3 MG/DL 1.8-2.4 N FE W/TOTAL IRON BINDING CAP.2020-01-07 16:51:00 Test Item Value Reference Range Interpretation Comments SERUM IRON (test code = IRON) 38 mcG/DL 65-175 L TOTAL IRON BINDING CAPACITY (test 322 mcG/DL 250-450 N code = TIBC) IRON SATURATION (test code = 12 % calc 12-57 N FESAT) [id number] 16:51:00 Test Item Value Reference Range Interpretation Comments FERRITIN (test code = DAVID) 17.6 NG/ML 5.0-323.0 N CALCIUM [id number] 16:50:00 Test Item Value Reference Range Interpretation Comments CALCIUM IONIZED (test code = NAVEED) 1.12 mmol/L 1.12-1.32 N - XR ABDOMEN 1 [id number] 10:29:00 Name: DORA JOSEPH [facility] : 1970 Age/S: 49 / M [address] Unit #: [id number] Loc: [place] [address] Phys: Verona Frost PA-C Acct: [id number] Dis Date: Status: ADM IN PHONE #: [phone] Exam Date: 01/07/2020 07 FAX #: Reason: reassess SBO EXAMS: CPT: [id number] XR ABDOMEN 1 V 09363 Fluoro Time: DAP (Gy m2): Air Kerma (mGy): CLINICAL INFORMATION: Bowel obstruction. Dictation location: Comparison: 01/06/2020 reported distended colon Technique: Supine [...] PAGE 1 Signed Report Name: DORA JOSEPH [facility] : 1970 Age/S: 49 / M [address] Unit #: [id number] Loc: [place] [address] Phys: Verona Frost PA-C Acct: [id number] Dis Date: Status: ADM IN PHONE #: [phone] Exam Date: 01/07/2020 0712 FAX #: Reason: reassess SBO EXAMS: CPT: [id number] XR ABDOMEN 1 V 09323 Fluoro Time: DAP (Gy m2): Air Kerma (mGy): <Continued> Technologist: Bakari De Leon RT(R)(CT) Trnscb Date/Time: 01/07/2020 (1029) t.SDR.AGV Orig Print D/T: S: 01/07/2020 (1498) PAGE 2 Signed ReportBASIC METABOLIC PANEL 2020-01-07 [...] CA) 5.4 MG/DL 8.5-10.1 LL CBC W/AUTO [id number] 06:49:00 Test Item Value Reference Range Interpretation [...] = NO DIFF/SCN CRITERIA MDIFF) COMPREHENSIVE METABOLIC [id number] 06:10:00 Test Item Value Reference Range Interpretation [...] TOTAL (test code = ALKP) CBC W/AUTO [id number] 05:52:00 Test Item Value Reference Range Interpretation [...] DIFF/SCN CRITERIA MDIFF) - XR ABDOMEN 1 [id number] 01:30:00 Name: DORA JOSEPH [facility] : 1970 Age/S: 49 / M [address] Unit #: [id number] Loc: [place] [address] Phys: Ted Coleman NP Acct: [id number] Dis Date: Status: ADM INPHONE #: [phone] Exam Date: 01/06/2020 0100 FAX #: Reason: NG Tube Placement Verification EXAMS: CPT: [id number] XR ABDOMEN 1 V 02084 Fluoro Time: DAP (Gy m2): Air Kerma [...] M.D. CC: Mark Perea MD; Ted Coleman ECOSYSTEM ECOLOGY PROFESSOR PAGE 1 Signed Report Name: DORA JOSEPH [facility] : 1970 Age/S: 49 / M [address] [facility] Unit #: [id number] Loc: [place] [address] Phys: Ted Coleman NP Acct: [id number] Dis Date: Status: ADM IN PHONE #: [phone] Exam Date: 01/06/202099 FAX #: Reason: NGTube Placement Verification EXAMS: CPT: [id number] XR ABDOMEN 1 V 77486 Fluoro Time: DAP (Gy m2): AirKerma (mGy): <Continued> Technologist: Amberly Borrero RT(R) Trnscb Date/Time: 01/06/2020 (129)tJUDSONFC Orig Print D/T: S: 01/06/2020 (132) PAGE 2 Signed Report- CT ABD PELVIS W/O [id number] 19:42:00 [place]: St: REG -- Name: DORA JOSEPH [facility] : 1970 Age/S: 49/M [address] [facility] Unit: [id number] [place]: [place]: [place] [address] Acct: [id number] Dis Date: Status: REG ER PHONE #: [phone] Exam Date: 12/13/20191924 FAX #: [phone] Reason: pain EXAMS: CPT CODE: [id number] CT ABD PELVIS W/O CONT 36797 Examination: CT scan abdomen and pelvis without [...] abdomen and pelvis. at 194 Reported and signedby: SHANEL EDWARDS CC: Technologist: [...] code = CA) 8.6 mg/dl 8.0-10.5 N [id number] 18:49:00 Test Item Value Reference Range Interpretation Comments LIPASE (test code = LIP) 97 Units/L 65.0-230.0 N CBC W/AUTO [id number] 18:38:00 Test Item Value Reference Range Interpretation [...] K/mm3 0.0-0.2 N - XR CHEST 1 [id number] 18:36:00 [place]: St: PRE -- Name: DORA JOSEPH [facility] : 1970 Age/S: 49/M [address] [facility] [address] Unit #: [id number] Loc: [place], [place]: [place] [address] Acct: [id number] Dis Date:Status: PRE ER PHONE #: [phone] Exam Date: 12/13/2019 1822 FAX #: [phone] Reason: SOB EXAMS: CPT CODE: [id number] XR CHEST 1 V 49969 Examination: One view chest x-ray Location code: [...] : By: GarettVR5 PAGE 1 Signed Report [place]: St: PRE ---- Name: DORA JOSEPH [facility] : 1970 Age/S: 49/M [id number] Loc: [place], [place]: [place] [address] Acct: [id number] DisDate: Status: PRE ER PHONE #: [phone] Exam Date: 12/13/20191821 FAX #: [phone] Reason: SOB EXAMS: CPT CODE: [id number] XR CHEST 1 V 63796 (Continued) Orig Print D/T: S: 12/13/2019 (1839) PAGE 2 Signed ReportCBC W/PLT COUNT & AUTO [id number] 08:02:00 Test Item Value Reference Range Interpretation [...] Received comment: User comments: Slide comments:BASIC METABOLIC [id number] 07:34:00 Test Item Value Reference Range Interpretation [...] S NOT APPLICABLE FOR DIALYSIS PATIEN TS. [id number] 07:26:00 Test Item Value Reference Range Interpretation Comments PHOSPHORUS (BEAKER) (test code = 3.1 mg/dL 2.3-4.7 604) [id number] 07:26:00 Test Item Value Reference Range Interpretation Comments MAGNESIUM (BEAKER) (test code = 1.6 mg/dL 1.6-2.6 627) RAD, ABDOMEN/KUB, 1 VIEW [id number] 07:04:00Reason for exam:->ileusFINAL REPORT Abdomen , one [...] MDReport Verified Date/Time: 04/03/2019 07:04:46 Reading Location: [facility] C0X Ortho Consult Reading Room BASIC METABOLIC [id number] 06:47:00 Test Item Value Reference Range Interpretation [...] code = 413) URINALYSIS WITH MICROSCOPIC IF [id number] 22:01:00 Test Item Value Reference Range Interpretation [...] 463) SOURCE(BEAKER) (test code = 2795) URINALYSIS [id number] 22:01:00 Test Item Value Reference Range Interpretation Comments RBC UA (BEAKER) (test code = 519) 18 /HPF WBC UA (BEAKER) (test code = 520) 1 /HPF CALCIUM OXALATE CRYSTALS (BEAKER) Occasional (test code = 518) [id number] 05:49:00 Test Item Value Reference Range Interpretation Comments PHOSPHORUS (BEAKER) (test code = 2.5 mg/dL 2.3-4.7 604) [id number] 05:49:00 Test Item Value Reference Range Interpretation Comments MAGNESIUM (BEAKER) (test code = 1.7 mg/dL 1.6-2.6 627) BASIC METABOLIC [id number] 05:49:00 Test Item Value Reference Range Interpretation [...] (BEAKER) (test code = 413) BASIC METABOLIC [id number] 06:19:00 Test Item Value Reference Range Interpretation [...] S NOT APPLICABLE FOR DIALYSIS PATIEN TS. [id number] 06:10:00 Test Item Value Reference Range Interpretation Comments MAGNESIUM (BEAKER) 1.8 mg/dL 1.6-2.6 Specimen slightly (test code = 627) hemolyzed [id number] 06:10:00 Test Item Value Reference Range Interpretation [...] (BEAKER) (test code = 413) BASIC METABOLIC [id number] 04:57:00 Test Item Value Reference Range Interpretation [...] S NOT APPLICABLE FOR DIALYSIS PATIEN TS. [id number] 04:55:00 Test Item Value Reference Range Interpretation Comments PHOSPHORUS (BEAKER) (test code = 2.6 mg/dL 2.3-4.7 604) [id number] 04:55:00 Test Item Value Reference Range Interpretation Comments MAGNESIUM (BEAKER) (test code = 1.8 mg/dL 1.6-2.6 627) CT, [id number] 14:16:00FINAL REPORT TECHNIQUE: CT of the abdomen [...] masses or ductal dilatation. ADRENALS: No adrenal nodules.KIDNEYS/URETERS: No hydronephrosis, stones, or solid [...] MDReport Verified Date/Time: 03/29/2019 14:16:01 Reading Location: [facility] B1 C013Y CT Body Reading Room , ABDOMEN/KUB, 1 VIEW [id number] 10:23:00Reason for exam:->evaluate ileusFINAL REPORT Technique: Supine [...] MDReport Verified Date/Time: 03/29/2019 10:23:29 Reading Location: [facility] Reading Room CBC (HEMOGRAM ONLY)2019-03-29 08:10:00 [...] WBC 0-0 (BEAKER) (test code = 413) [id number] 06:20:00 Test Item Value Reference Range Interpretation Comments PHOSPHORUS (BEAKER) (test code = 2.6 mg/dL 2.3-4.7 604) [id number] 06:20:00 Test Item Value Reference Range Interpretation Comments MAGNESIUM (BEAKER) (test code = 2.0 mg/dL 1.6-2.6 627) BASIC METABOLIC [id number] 06:20:00 Test Item Value Reference Range Interpretation [...] TS. RAD, ABDOMEN SERIES W/ UPRIGHT PA [id number] 22:18:00Reason for exam:- >eval ileusFINAL REPORT CLINICAL [...] evaluation with CT abdomen pelvis. Signed: Mari Bethea Verified Date/Time: 03/28/2019 22:18:50 RAD, ABDOMEN/KUB, 1 VIEW [id number] 11:23:00Reason for exam:->abdominal distensionShould this be performed [...] focal transition point is identified. Signed: Wendi Crzu Verified Date/Time: 03/28/2019 11:23:34 Reading Location: [facility] Radiology Reading Room TISSUE [id number] 09:00:00Surgical Pathology Report Case: [id number] Authorizing Provider: Graciela Garrison MD Collected: 03/25/2019 1133 Ordering Location: [facility] Received: 03/25/2019 1527 SERVICES Pathologist: Jordan [...] FOR MALIGNANCY Signing Pathologist Direct Phone Line: [phone] signed by Priyanka Celaya MD on 03/28/2019 at 9:00 [id number] and postop diagnosis: ileostomy statusA. End ileostomy; [...] nodes are not identified in the mesentery. Dialysis Nurse sections are submitted. Section code: A, technical service representative section of each end of first mentioned segment of small bowel; A2, technical service representative of first mentioned segment of small bowel mucosa; A3, area of hemorrhagic mesentery of second mentioned segment of mucosa; A4, technical service representative of hemorrhagic mucosa at open end of second portion of small bowel; A5, technical service representative of stapled margin from secondmentioned segment [...] 0.2 cm. No gross lesions are identified. Dialysis Nurse sections are submitted. Section code: B1, proximal margin en face and tip; B2, technical service representative cross section. CG/pl Performed.[id number] 06:23:00 Test Item Value Reference Range Interpretation Comments PHOSPHORUS (BEAKER) (test code = 2.7 mg/dL 2.3-4.7 604) [id number] 06:23:00 Test Item Value Reference Range Interpretation Comments MAGNESIUM (BEAKER) (test code = 1.9 mg/dL 1.6-2.6 627) BASIC METABOLIC [id number] 06:23:00 Test Item Value Reference Range Interpretation [...] S NOT APPLICABLE FOR DIALYSIS PATIEN TS. [id number] 08:20:00 Test Item Value Reference Range Interpretation Comments PHOSPHORUS (BEAKER) (test code = 2.6 mg/dL 2.3-4.7 604) [id number] 08:20:00 Test Item Value Reference Range Interpretation Comments MAGNESIUM (BEAKER) (test code = 1.8 mg/dL 1.6-2.6 627) BASIC METABOLIC [id number] 08:20:00 Test Item Value Reference Range Interpretation [...] S NOT APPLICABLE FOR DIALYSIS PATIEN TS. [id number] 06:06:00 Test Item Value Reference Range Interpretation Comments PHOSPHORUS (BEAKER) (test code = 4.1 mg/dL 2.3-4.7 604) [id number] 06:06:00 Test Item Value Reference Range Interpretation Comments MAGNESIUM (BEAKER) (test code = 1.8 mg/dL 1.6-2.6 627) BASIC METABOLIC [id number] 06:06:00 Test Item Value Reference Range Interpretation [...] S NOT APPLICABLE FOR DIALYSIS PATIEN TS. [id number] 06:03:00 Test Item Value Reference Range Interpretation Comments PHOSPHORUS (BEAKER) (test code = 4.2 mg/dL 2.3-4.7 604) [id number] 06:03:00 Test Item Value Reference Range Interpretation Comments MAGNESIUM (BEAKER) (test code = 2.0 mg/dL 1.6-2.6 627) BASIC METABOLIC [id number] 06:03:00 Test Item Value Reference Range Interpretation [...] WBC 0-0 (BEAKER) (test code = 413) [id number] 05:52:00 Test Item Value Reference Range Interpretation Comments PHOSPHORUS (BEAKER) (test code = 4.2 mg/dL 2.3-4.7 604) [id number] 05:52:00 Test Item Value Reference Range Interpretation Comments MAGNESIUM (BEAKER) (test code = 1.9 mg/dL 1.6-2.6 627) BASIC METABOLIC [id number] 05:52:00 Test Item Value Reference Range Interpretation [...] S NOT APPLICABLE FOR DIALYSIS PATIEN TS. [id number] 06:51:00 Test Item Value Reference Range Interpretation Comments PHOSPHORUS (BEAKER) (test code = 4.3 mg/dL 2.3-4.7 604) [id number] 06:51:00 Test Item Value Reference Range Interpretation Comments MAGNESIUM (BEAKER) (test code = 2.0 mg/dL 1.6-2.6 627) BASIC METABOLIC [id number] 06:51:00 Test Item Value Reference Range Interpretation [...] 0-0 (BEAKER) (test code = 413) TISSUE [id number] 11:50:00Surgical Pathology Report Case: [id number] Authorizing Provider: Mela Larson MD Collected: 03/18/2019 1827 Ordering Location: [facility] Received: 03/21/2019 0823 SERVICES Pathologist: Jordan Celaya MD Specimen: Small Bowel, NOS A. SMALL BOWEL, ILEOSTOMY PROLAPSE, TAKEDOWN:- ANASTOMOSIS SITE WITH ACTIVE CHRONIC INFLAMMATION AND FOCAL ISCHEMIC CHANGES - MUCOSAL RESECTION MARGINS, NEGATIVE FOR MALIGNANCY - ONE BENIGN LYMPH NODE (0/1) - NEGATIVE FOR DYSPLASIA OR MALIGNANCY Signing Pathologist Direct Phone Line: [phone] signed by Jordan Celaya MD on 03/22/2019 at 11:50 [id number] of ileostomyReceived in a container labeled "small [...] 0.5 to 1.2 cm in greatest dimension. Dialysis Nurse sections are submitted as follows: A1-A2, mucosal resection margin, en face; A3-A6, technical service representative sections of the possible ostomy stump; A7-A11, serial technical service representative sections from mucosal resec tion margin to the possible ostomy stump; A12, two lymph nodes. TH/plPerformed. [id number] 06:58:00 Test Item Value Reference Range Interpretation Comments PHOSPHORUS (BEAKER) (test code = 3.8 mg/dL 2.3-4.7 604) [id number] 06:58:00 Test Item Value Reference Range Interpretation Comments MAGNESIUM (BEAKER) (test code = 2.0 mg/dL 1.6-2.6 627) BASIC METABOLIC [id number] 06:58:00 Test Item Value Reference Range Interpretation [...] PATIEN TS. CBC W/PLT COUNT & AUTO [id number] 05:42:00 Test Item Value Reference Range Interpretation [...] PERCENT (BEAKER) (test code = 2801) FL, [id number] 17:42:00Reason for exam:->evaluate for colon stricture as [...] of images obtained: 11 Signed: David Lopez MDReport Verified Date/Time: 03/21/2019 17:42:21 Reading Location: [facility] C013X Ortho Consult Reading Room [id number] 03:58:00 Test Item Value Reference Range Interpretation Comments PHOSPHORUS (BEAKER) (test code = 3.0 mg/dL 2.3-4.7 604) [id number] 03:58:00 Test Item Value Reference Range Interpretation Comments MAGNESIUM (BEAKER) (test code = 2.0 mg/dL 1.6-2.6 627) BASIC METABOLIC [id number] 03:58:00 Test Item Value Reference Range Interpretation [...] PATIEN TS. CBC W/PLT COUNT & AUTO [id number] 03:20:00 Test Item Value Reference Range Interpretation [...] (BEAKER) (test code = 2801) BASIC METABOLIC [id number] 06:26:00 Test Item Value Reference Range Interpretation [...] S NOT APPLICABLE FOR DIALYSIS PATIEN TS. [id number] 06:05:00 Test Item Value Reference Range Interpretation Comments PHOSPHORUS (BEAKER) (test code = 2.2 mg/dL 2.3-4.7 L 604) [id number] 06:05:00 Test Item Value Reference Range Interpretation Comments MAGNESIUM (BEAKER) (test code = 2.0 mg/dL 1.6-2.6 627) CBC W/PLT COUNT & AUTO [id number] 05:25:00 Test Item Value Reference Range Interpretation [...] 0-1 PERCENT (BEAKER) (test code = 2801) [id number] 04:31:00 Test Item Value Reference Range Interpretation Comments PHOSPHORUS (BEAKER) (test code = 3.7 mg/dL 2.3-4.7 604) [id number] 04:31:00 Test Item Value Reference Range Interpretation Comments MAGNESIUM (BEAKER) (test code = 1.9 mg/dL 1.6-2.6 627) BASIC METABOLIC [id number] 04:31:00 Test Item Value Reference Range Interpretation [...] PATIEN TS. CBC W/PLT COUNT & AUTO [id number] 04:15:00 Test Item Value Reference Range Interpretation [...] 0-1 PERCENT (BEAKER) (test code = 2801) [id number] 06:41:00 Test Item Value Reference Range Interpretation Comments PHOSPHORUS (BEAKER) (test code = 3.1 mg/dL 2.3-4.7 604) [id number] 06:41:00 Test Item Value Reference Range Interpretation Comments MAGNESIUM (BEAKER) (test code = 1.9 mg/dL 1.6-2.6 627) BASIC METABOLIC [id number] 06:41:00 Test Item Value Reference Range Interpretation [...] PATIEN TS. CBC W/PLT COUNT & AUTO [id number] 06:36:00 Test Item Value Reference Range Interpretation [...] PERCENT (BEAKER) (test code = 2801) CT, [id number] 17:04:00No PO contrastFINAL REPORT ABDOMINAL AND PELVIS [...] MDReport Verified Date/Time: 03/17/2019 17:04:19 Reading Location: [facility] C013Y CT Body Reading Room XR ABDOMEN 2 [id number] 09:03:45XR ABDOMEN 2 VIEWSLOCATION: [id number]: Colstomy ProlapseCOMPARISON: Chest radiograph 04/15/2017, CT of [...] Nonspecific, nonobstructive bowel gas pattern.XR CHEST 1 [id number] 11:32:15EXAM: CHEST ONE VIEWINDICATION: Chest painCOMPARISON: None availableTECHNIQUE: AP view of the chest.FINDINGS: The cardiomediastinal silhouette is normal. The lungs are clearbilaterally. No pneumothoraxor pleural effusion is identified. Theosseous structures are unremarkable.IMPRESSION: No acute cardiopulmonary process.LOCATION: N74Mjyvl Type and [id number] 21:21:00 Test Item Value Reference Range Interpretation Comments ABO type (test code = ABO) O Rh Type (test code = RH) Positive Comprehensive Metabolic [id number] 20:36:00 Test Item Value Reference Range Interpretation [...] the National Kidney Foundation,http ://nkd ep.nih.gov Alcohol/Ethanol, [id number] 20:36:00 Test Item Value Reference Range Interpretation Comments Alcohol, Ethyl <0.01 g/dL 0.00-0.01 N Intoxicated 0 .080 g/dL (test code = ETOH) or more Prothrombin [id number] 20:00:00 Test Item Value Reference Range Interpretation Comments PT (test code = PT) 10.10 seconds 9.78-13.35 N INR (test code = INR) 0.88 Ratio 0.6-1.2 N Partial Thromboplastin [id number] 20:00:00 Test Item Value Reference Range Interpretation Comments aPTT (test code = PTT) 31.50 seconds 24.39-37.25 N CBC with [id number] 19:50:00 Test Item Value Reference Range Interpretation [...] code = ALYMPH) 2.2 K/cumm 0.5-4.6 N Mills Abs (test code = AMONO) 0.4 K/cumm 0.0-1.2 N Eos Abs (test code = AEOS) 0.17 K/cumm 0.00-0.74 N Baso Abs (test code = ABASO) 0.0 K/cumm 0.00-0.21 N 42969& PELVIS W/O [id number] 17:36:28CT ABDOMEN AND PELVIS WITHOUT CONTRAST.CLINICAL HISTORY: [...] Mild nonspecific wall thickening of the small andlarge bowel. Correlate for possible enterocolitis.2. Right lower quadrant ileostomy.Location: R16
--- NOTE | 2022-06-09 19:10 | ER ---
Nurse's Notes [facility] Name: Rico Mcneill Age: 52 yrs Sex: Male : 1970 Arrival Date: 06/09/2022 Time: 16:44 Bed 9 Private MD: Diagnosis: Encounter for ostomy supplies Presentation: 06/09 18:26 Chief complaint: Patient states: "I just need colostomy bags" Denies pain. Coronavirus vg1 screen: Vaccine status: Patient reports receiving the 2nd dose of the covid vaccine. Client denies travel out of the [place] in the last 14 days. Ebola Screen: Patient negative for fever greater than or equal to 101.5 degrees Fahrenheit, and additional compatible Ebola Virus Disease symptoms Patient denies exposure to infectious person. Initial Sepsis Screen: Does the patient meet any 2 criteria? No. Patient's initial sepsis screen is negative. Does the patient have a suspected source of infection? No. Patient's initial sepsis screen is negative. Risk Assessment: Do you want to hurt yourself or someone else? Patient reports no desire to harm self or others. Onset of symptoms was June 09, 2022. 18:26 Method Of Arrival: Ambulatory vg1 18:26 Acuity: OCTAVIO 4 vg1 Triage Assessment: 18:30 General: Appears in no apparent distress. comfortable, Behavior is calm, cooperative. vg1 Pain: Denies pain. GI: Ileostomy site is not intact. Historical: - Allergies: 18:30 NKDA; vg1 - PMHx: 18:30 ileostomy; vg1 - PSHx: 18:30 Small bowel resection with ileostomy; vg1 - Immunization history:: Client reports receiving the 2nd dose of the Covid vaccine. - Social history:: Smoking status: Patient reports use of chewing tobacco. Screenin:10 Abuse screen: Denies threats or abuse. Nutritional screening: No deficits noted. jj7 Tuberculosis screening: No symptoms or risk factors identified. Fall Risk None identified. Assessment: 19:10 General: Appears in no apparent distress. comfortable, slender, Reports. GI: NEEDS jj7 COLOSTOMY BAG. BOWEL HANGING OUT. PT JUST HERE FOR BAGS. REPRODUCTION SPECIALIST HAS BAGS. PT NOW IN ROOM APPLYING BAG. NO DISTRESS NOTED. NO NEEDS AT THIS TIME. PT ALSO HAS BEEN DISCHARGED. Vital Signs: 18:26 Pulse 70; Resp 15; Temp 98.6(O); Pulse Ox 98% on R/A; Weight 65.77 kg; Height 6 ft. 1 vg1 in. (185.42 cm); Pain 0/10; 18:31 BP 107 / 69; vg1 18:26 Body Mass Index 19.13 (65.77 kg, 185.42 cm) vg1 ED Course: 16:44 Patient arrived in ED. rg4 18:30 Triage completed. vg1 18:30 Arm band placed on. vg1 18:56 [facility]C [facility] kb 18:56 Nichole Fuentes MD is Attending Physician. kb 19:10 Patient has correct armband on for positive identification. Bed in low position. Call jj7 light in reach. 19:10 No provider procedures requiring assistance completed. Patient did not have IV access jj7 during this emergency room visit. 19:19 Shraddha Rodriguez, RN is Primary Nurse. jj7 Administered Medications: No medications were administered Medication: 19:10 VIS not applicable for this client. jj7 Outcome: 19:10 Discharge ordered by . kb 19:10 Discharged to home ambulatory. jj7 19:10 Condition: good 19:10 Discharge instructions given to patient, Instructed on discharge instructions, Demonstrated understanding of instructions, wound care, Prescriptions given X 19:39 Patient left the ED. jj7 Signatures: Lauren Morrell FNP-C FNP-Ckb Garcia, Rubi rg4 Tamera Blas RN RN vg1 Shraddha Rodriguez RN RN jj7
--- NOTE | 2022-06-09 19:10 | EDPHYS ---
Physician Documentation [facility] Name: Rico Mcneill Age: 52 yrs Sex: Male : 1970 Arrival Date: 06/09/2022 Time: 16:44 Bed 9 Private MD: ED Physician Nichole Fuentes HPI: 06/09 20:43 This 52 yrs old Male presents to ER via Ambulatory with complaints of needs ostomy bags.kb 20:43 Pt states he came to get a colostomy bag. Denies any symptoms or problems. Onset: The kb symptoms/episode began/occurred today. Severity of symptoms: At their worst the symptoms were very mild in the emergency department the symptoms are unchanged. The patient has experienced similar episodes in the past. The patient has not recently seen a physician. Historical: - Allergies: 18:30 NKDA; vg1 - PMHx: 18:30 ileostomy; vg1 - PSHx: 18:30 Small bowel resection with ileostomy; vg1 - Immunization history:: Client reports receiving the 2nd dose of the Covid vaccine. - Social history:: Smoking status: Patient reports use of chewing tobacco. ROS: 20:44 Constitutional: Negative for fever, chills, and weight loss. kb 20:44 All other systems are negative. Exam: 20:44 Constitutional: This is a well developed, well nourished patient who is awake, alert, kb and in no acute distress. Head/Face: Normocephalic, atraumatic. ENT: Moist Mucous membranes Cardiovascular: Regular rate and rhythm with a normal S1 and S2. No gallops, murmurs, or rubs. No pulse deficits. Respiratory: Respirations even and unlabored. No increased work of breathing. Talking in full sentences Abdomen/GI: Soft, non-tender. No distention Skin: Warm, dry with normal turgor. Normal color. MS/ Extremity: Pulses equal, no cyanosis. Neurovascular intact. Full, normal range of motion. Neuro: Awake and alert, GCS 15, oriented to person, place, time, and situation. Moves all extremities. Normal gait. Vital Signs: 18:26 Pulse 70; Resp 15; Temp 98.6(O); Pulse Ox 98% on R/A; Weight 65.77 kg; Height 6 ft. 1 vg1 in. (185.42 cm); Pain 0/10; 18:31 BP 107 / 69; vg1 18:26 Body Mass Index 19.13 (65.77 kg, 185.42 cm) vg1 MDM: 19:08 Patient medically screened. kb 20:44 Data reviewed: vital signs, nurses notes. Data interpreted: Pulse oximetry: on room air kb is 98 %. Interpretation: normal. Counseling: I had a detailed discussion with the patient and/or guardian regarding: the historical points, exam findings, and any diagnostic results supporting the discharge/admit diagnosis, the need for outpatient follow up, a family practitioner, to return to the emergency department if symptoms worsen or persist or if there are any questions or concerns that arise at home. 06/09 19:09 [place] [facility] place ostomy bag kb Administered Medications: No medications were administered Disposition Summary: 06/09/22 19:10 Discharge Ordered Location: Home kb Condition: Stable kb Diagnosis - Encounter for ostomy supplies kb Followup: kb - With: Emergency Department - When: As needed - Reason: Worsening of condition Followup: kb - With: Private Physician - When: 2 - 3 days - Reason: Recheck today's complaints, Continuance of care, Re-evaluation by your physician Discharge Instructions: - Discharge Summary Sheet kb - Colostomy Home Guide, Adult kb Forms: - Medication Reconciliation Form kb - Thank You Letter kb - Antibiotic Education kb - Prescription Opioid Use kb Addendum: 06/12/2022 03:40 STAFF ATTESTATION STATEMENT: I was immediately available onsite in the emergency s d2 department for consultation in the care of this patient. I did not see or examine this patient. Nichole Fuentes MD. Signatures: Lauren Morrell FNP-C FNP-Ckb Garcia, Victoria, RN RN vg1 Nichole Fuentes MD MD sd2
[2022-06-09 20:08] VITALS: TEMP 98.6; O2SAT 98
[2022-06-09 20:09] VITALS: BP 107/69
== END 2022-06-09 19:39 | disposition home or self-care (01) ==
LOC: ER 16:42
DX: Z43.3 Encounter for attention to colostomy (principal)
CPT/HCPCS: 99282

== ENCOUNTER 2022-06-17 18:28 | Emergency (ER) | payer SELFPAY ==
--- OUTSIDE RECORDS SUMMARY | 2022-06-17 18:46 | XMS REPORT | Continuity of Care Document ---
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 Tello [facility] PANEL [facility] HIGH SENSITIVITY TROPONIN 2022-03-06 13:23:[address] [facility] MAGNESIUM 2022-03-06 13:23:[address] [facility] PHOSPHORUS 2022-03-06 13:23:[address] [facility] LACTIC ACID, VENOUS 2022-03-06 13:23:00 Aryan Tello [facility] CREATINE KINASE (CK) 2022-03-06 13:23[facility] & AUTO 2022-03-06 13:23:[address] [facility] DIFFERENTIAL [facility] ECG 12-LEAD 2022-03-06 12:12:56 Unknown, H[facility] ECG 12-LEAD 2022-03-06 12:12:56 Unknown, [facility] ECG 12-LEAD 2022-03-06 12:12:56 Unknown, Hl[facility] EKG-SCANNED 2022-03-06 00:00:00 Provider, [facility] CBC (WITHOUT 2022-02-20 05:10:00 Rufino Lazaro DIFFERENTIAL) BASIC METABOLIC PANEL 2022-02-20 05:10:00 Rufino Lazaro Health MAGNESIUM 2022-02-20 05:10:00 Rufino Lazaro h PHOSPHORUS 2022-02-20 05:10:00 Rufino Lazaro h INFUSION PUMP 2022-02-19 19:03:50 Rufino Lazaro h COMPREHENSIVE METABOLIC 2022-02-19 06:35:00 [facility] PANEL CBC/DIFF 2022-02-19 06:35:00 Kobe Blake He alth PHOSPHORUS 2022-02-19 06:35:00 Kobe Blake alth CBC 2022-02-19 06:35:00 Kobe Blake alth URINALYSIS W/REFLEX TO 2022-02-19 00:34:00 Kobe Blake [facility] URINE CULTURE URINALYSIS 2022-02-19 00:34:00 [facility] CULT[facility] COLLECTION 2022-02-19 00:34:00 Chadd Palacios [facility] KIT SARS-COV-2, FLU A/B, RSV 2022-02-18 19:00:00 Philip [facility] CORONAVIRUS, COVID-19, 2022-02-18 19:00:00 Philip Chadd [facility] OLENA XRAY CHEST 1 VIEW 2022-02-18 15:23:00 Roz Scales [facility] CONSULT CLINICAL CASE 2022-02-18 14:50:50 Roz Scales [facility] MANAGEMENT (RN/SW) CBC/DIFF 2022-02-18 14:16:00 [facility]EL 2022-02-18 14:16:00 Albab [facility] MAGNESIUM 2022-02-18 14:16:00 [facility] 2022-02-18 14:16:00 [facility] CREATINE KIN[facility] (CK) 2022-02-18 14:16:[address] [facility] CBC 2022-02-18 14:16:00 [facility] BAS[facility] MET[facility]OLIC PANEL 2022-02-11 03:34:00 Antonieta [facility] MAGNESIUM 2022-02-11 03:34:00 CuchaTeresa de la garza [facility] PHOSPHORUS 2022-02-11 03:34:00 Teresa Alves [facility] CBC (WITHOUT 2022-02-11 03:34:00 Teresa Alves [facility] DIFFERENTIAL) CBC/DIFF 2022-02-10 03:39:00 Meghan [facility]las [facility] BASIC METABOLIC PANEL 2022-02-10 03:39:00 Antonieta [facility] CBC 2022-02-10 03:39:00 Yin, Youshi [facility] THYROID STIMULATING 2022-02-10 03:39:[address] [facility] HORMONE (TSH) FREE T4 2022-02-10 03:39:00 LongTeresa [facility] CBC/DIFF 2022-02-09 04:38:00 Meghan Islas [facility] h BASIC METABOLIC PANEL 2022-02-09 04:38:00 [facility] 2022-02-09 04:38:00 [facility] CORTISOL, TOTAL 2022-02-08 11:37:00 [facility] GLUCOSE POC 2022-02-08 08:07:00 Meghan Islas [facility] CBC (WITHOUT 2022-02-08 04:00:00 [facility] DIFFERENTIAL) COMPREHENSIVE METABOLIC 2022-02-08 04:00:00 Mari Meier [facility] PANEL PHOSPHORUS 2022-02-08 04:00:00 Mari Meier ealth MAGNESIUM 2022-02-08 04:00:00 Mari Meier [facility] PT/INR 2022-02-08 04:00:00 Mari Meier [facility] URINALYSIS W/REFLEX TO 2022-02-07 18:06:00 Areli Arciniega [facility] URINE CULTURE URINALYSIS 2022-02-07 18:06:00 Areli Arciniega [facility] URINE CULTURE COLLECTION 2022-02-07 18:06:[address] [facility] KIT ELECTROLYTES, URINE 2022-02-07 18:06:00 Jyoti Carrillo [facility] OSMOLALITY, URINE 2022-02-07 18:06:00 J[facility] SARS-COV-2, FLU A/B, RSV 2022-02-07 18:05:00 Jyoti Carrillo [facility] CORONAVIRUS, COVID-19, 2022-02-07 18:05:00 Jyoti Carrillo [facility] OLENA NUTRITION CONSULT 2022-02-07 17:43:[address] [facility] ASSESSMENT BASIC METABOLIC PANEL 2022-02-07 17:18:00 yJoti Carrillo [facility] LACTIC ACID 2022-02-07 14:04:00 Jazmine Arciniegager [facility] CBC/DIFF 2022-02-07 14:03:00 Suze Areli [facility] BASIC METABOLIC PANEL 2022-02-07 14:03:00 Areli Arciniega [facility] LIVER PROFILE 2022-02-07 14:03:00 Jazmine Arciniegager [facility] LIPASE 2022-02-07 14:03:00 Suze Areli [facility] MAGNESIUM 2022-02-07 14:03:00 Jazmine Arciniegager Lynne alth PHOSPHORUS 2022-02-07 14:03:00 Suze Areli [facility] TROPONIN I 2022-02-07 14:03:00 Suze Areli [facility] CBC 2022-02-07 14:03:00 Areli Arciniega Maged [facility] 12 LEAD EKG 2022-01-21 15:46:10 Ori Goldberg [facility] CBC/DIFF 2022-01-21 04:11:00 Steve Lucas [facility] MAGNESIUM 2022-01-21 04:11:00 Steve Lucas [facility] PHOSPHORUS 2022-01-21 04:11:00 LindseySteve P [facility] BASIC METABOLIC PANEL 2022-01-21 04:11:00 Ori Goldberg [facility] CBC 2022-01-21 04:11:00 LindseySteve [facility] CBC/DIFF 2022-01-20 04:37:00 LindseySteve [facility] MAGNESIUM 2022-01-20 04:37:00 LindseySteve [facility] PHOSPHORUS 2022-01-20 04:37:00 LindseySteve P [facility] BASIC METABOLIC PANEL 2022-01-20 04:37:00 LindseySteve [facility] CBC 2022-01-20 04:37:00 LindseySteve P [facility] MAGNESIUM 2022-01-19 18:09:00 LindseyNoeh P [facility] PHOSPHORUS 2022-01-19 18:09:00 [facility] BASIC METABOLIC PANEL 2022-01-19 18:09:00 LindseySteve P [facility] CORTISOL, TOTAL 2022-01-19 18:09:00 Karin Bassett [facility] URINALYSIS W/REFLEX TO 2022-01-19 17:22:00 Lindsey Steve P [facility] URINE CULTURE URINALYSIS 2022-01-19 17:22:00 [facility] URINE CULTURE COLLECTION 2022-01-19 17:22:00 LindseySteve [facility] [employer] KIT COMPUTED TOMOGRAPHY 2022-01-19 13:29:00 Lindsey SteveFormerly [facility] ABDOMEN AND PELVIS WITHOUT CONTRAST CBC/DIFF 2022-01-19 04:44:00 LindseyNoe herrerah P [facility] CBC 2022-01-19 04:44:00 [facility] DIFFERENTIAL, MANUAL (NO 2022-01-19 04:44:00 LindseySteve [facility] Health MORPHOLOGY)-WAM BASIC METABOLIC PANEL 2022-01-18 17:15:00 Lindsey Steve P [facility] CBC/DIFF 2022-01-18 04:46:00 Lindsey Steve P [facility] MAGNESIUM 2022-01-18 04:46:00 [facility] PHOSPHORUS 2022-01-18 04:46:00 [facility] BASIC METABOLIC PANEL 2022-01-18 04:46:[address] [facility] CBC 2022-01-18 04:46:00 [facility] [address] [facility] HIV AG/AB COMBO ROUTINE 2022-01-18 04:46:00 Karin Bassett [facility] SCREENING ENTERIC PATHOGENS NUCLEIC 2022-01-18 03:25:00 Karin Bassett [facility] ACID TEST BASIC METABOLIC PANEL 2022-01-18 00:29:00 Ori Goldberg [facility] BASIC METABOLIC PANEL 2022-01-17 17:07:00 [facility] BASIC METABOLIC PANEL 2022-01-17 13:15:00 Steve Lucasi s [facility] CALPROTECTIN FECAL 2022-01-17 12:38:00 Steve Lucas eayung FECAL LEUKOCYTES 2022-01-17 12:38:00 Steve Lucas Hea lt T-TRANSGLUTAMINASE IGA 2022-01-17 12:22:00 Steve Lucas [facility] BASIC METABOLIC PANEL 2022-01-17 08:51:00 [facility] BASIC METABOLIC PANEL 2022-01-17 04:47:00 [facility] CBC/DIFF 2022-01-17 04:47:00 Steve Lucas [facility] MAGNESIUM 2022-01-17 04:47:00 Steve [facility] PHOSPHORUS 2022-01-17 04:47:00 Steve Lucas [facility] CBC 2022-01-17 04:47:00 Steve Lucas [facility] BASIC METABOLIC PANEL 2022-01-17 00:08:00 [facility] 12 LEAD EKG 2022-01-16 21:23:25 Steve Lucas [facility] BASIC METABOLIC PANEL 2022-01-16 21:08:00 [facility] XRAY CHEST 2 VIEWS 2022-01-16 19:56:00 Steve Lucas IP CONSULT TO PHYSICAL 2022-01-16 19:17:17 [facility] THERAPY CONSULT CLINICAL CASE 2022-01-16 19:17:17 [facility] MANAGEMENT (RN/SW) SEQUENTIAL COMPRESSION 2022-01-16 19:17:17 [facility] PUMP SEQUENTIAL COMPRESSION 2022-01-16 19:17:17 [facility] PUMP SODIUM, URINE, RANDOM 2022-01-16 16:00:00 Kevin Nieves [facility] CREATININE, URINE, RANDOM 2022-01-16 16:00:[address] [facility] OSMOLALITY, URINE 2022-01-16 16:00:[address] [facility] SARS-COV-2, FLU A/B, RSV 2022-01-16 15:20:[address] [facility] CORONAVIRUS, COVID-19, 2022-01-16 15:20:00 Kevin Nieves [facility] OLENA FOLIC ACID 2022-01-16 14:13:00 NievesKevin kuo [facility] ealt CREATININE POC 2022-01-16 13:55:00 Raymon Martin [facility] BMP POC 2022-01-16 13:46:00 [facility]mon [facility] CBC/DIFF 2022-01-16 12:12:00 [facility] CBC 2022-01-16 12:12:00 [facility]mon [facility] BASIC METABOLIC PANEL 2022-01-16 12:11:00 Sadiq Vargas [facility] MAGNESIUM 2022-01-16 12:11:00 Sadiq Vargas [facility] VITAMIN B12 2022-01-16 12:11:00 Kevin Nieves [facility] OSMOLALITY,SERUM 2022-01-16 12:11:[address] [facility] INFUSION PUMP 2022-01-11 09:21:05 Helene Ring [facility] GLUCOSE POC 2022-01-11 07:54:00 Helene Ring BASIC METABOLIC PANEL 2022-01-11 04:07:[address] [facility] MAGNESIUM 2022-01-11 04:07:00 Merissa Richards Healt [facility] PHOSPHORUS 2022-01-11 04:07:00 Merissa Richards [facility] CBC/DIFF 2022-01-11 04:06:00 Merissa Richards [facility] IRON PROFILE 2022-01-11 04:06:00 Merissa Richards Healt h FOLIC ACID 2022-01-11 04:06:00 Merissa Richards Healt [facility] CBC 2022-01-11 04:06:00 Merissa Richards [facility] GLUCOSE POC 2022-01-10 18:16:00 Helene Ring [facility] URINALYSIS 2022-01-10 16:10:00 Merissa Richards [facility] h URINALYSIS 2022-01-10 16:10:00 [facility] SARS-COV-2, FLU A/B, RSV 2022-01-10 15:54:00 Merissa Richards [facility] CORONAVIRUS, COVID-19, 2022-01-10 15:54:00 Antoine Hester [facility] OLENA BASIC METABOLIC PANEL 2022-01-10 15:54:[address] [facility] VITAMIN B12 2022-01-10 15:54:00 Merissa Richards [facility] VBG POC 2022-01-10 11:14:00 Dia Jewell [facility] CBC/DIFF 2022-01-10 11:13:00 Antoine Hester [facility] BASIC METABOLIC PANEL 2022-01-10 11:13:[address] [facility] LACTIC ACID 2022-01-10 11:13:00 Antoine Hester [facility] CBC 2022-01-10 11:13:00 Antoine Hester [facility] LIVER PROFILE 2022-01-10 11:13:00 Merissa Richards [facility] CK, TOTAL 2022-01-10 11:13:00 [facility] FERR[facility]IN 2022-01-10 11:13:00 [facility] CREATINE KINASE MB (CKMB) 2022-01-10 11:13:00 Merissa Richards [facility] XRAY CHEST 2 VIEWS 2022-01-08 21:50:[address] [facility] CBC/DIFF 2022-01-08 21:27:00 Tanja Sebastian [facility] BASIC METABOLIC PANEL 2022-01-08 21:27:00 Tanja Sebastian [facility] LIVER PROFILE 2022-01-08 21:27:00 Tanja Sebastian [facility] CK, TOTAL 2022-01-08 21:27:00 Tanja Sebastian Hea lth TROPONIN I 2022-01-08 21:27:00 Jaz Tanja K [facility] CBC 2022-01-08 21:27:00 Jaz Tanja Walter [facility] CREATINE KINASE MB (CKMB) 2022-01-08 21:27:00 Sebastian, Tanja [place] [id number] LEAD EKG 2022-01-08 20:59:56 Jaz Tanja Walter [facility] [id number] 2020-01-09 00:00:00 [email or web address] [facility] Plan of Care Planned Activity Planned Date Details Comments Source Future Scheduled 2029-03-23 Screening for malignant [facility] Test 00:00:00 neoplasm of colon Medical Ce [facility]ter (procedure) [code = 618775314] Future Scheduled 2029-03-23 Screening for malignant [facility] Test 00:00:00 neoplasm of colon Medical Ce [facility]ter (procedure) [code = 108791651] Future Scheduled 2029-03-23 Screening for malignant [facility] Test 00:00:00 neoplasm of colon Medical Ce [facility]ter (procedure) [code = 893279637] Future Scheduled 2029-03-23 Screening for malignant [facility] Test 00:00:00 neoplasm of colon Medical Ce [facility]ter (procedure) [code = 180644767] Future Scheduled 2029-03-23 Screening for malignant [facility] Test 00:00:00 neoplasm of colon Medical Ce [facility]ter (procedure) [code = 138129076] Future Scheduled 2029-03-23 Screening for malignant [facility] Test 00:00:00 neoplasm of colon Medical Ce [facility] (procedure) [code = 223846691] Future Scheduled 2029-03-23 Screening for malignant [facility] Test 00:00:00 neoplasm of colon Medical Ce nter (procedure) [code = 580629457] Future Scheduled 2029-03-23 Screening for malignant [facility] Test 00:00:00 neoplasm of colon Medical Ce [facility]ter (procedure) [code = 882400549] Future Scheduled 2029-03-23 Screening for malignant [facility] Test 00:00:00 neoplasm of colon Medical Ce [facility]ter (procedure) [code = 235418543] Future Scheduled 2029-03-23 Screening for malignant [facility] Test 00:00:00 neoplasm of colon Medical Ce nter (procedure) [code = 345777237] Future Scheduled 2029-03-23 Screening for malignant [facility] Test 00:00:00 neoplasm of colon Medical Ce nter (procedure) [code = 756861113] Future Scheduled 2029-03-23 Screening for malignant [facility] Test 00:00:00 neoplasm of colon Medical Ce nter (procedure) [code = 965149613] Future Scheduled 2029-03-23 Screening for malignant [facility] Test 00:00:00 neoplasm of colon Medical Ce nter (procedure) [code = 272054232] Future Scheduled 2029-03-23 Screening for malignant [facility] Test 00:00:00 neoplasm of colon Medical Ce nter (procedure) [code = 034724736] Future Scheduled 2029-03-23 Screening for malignant [facility] Test 00:00:00 neoplasm of colon Medical Ce nter (procedure) [code = 951124357] Future Scheduled 2029-03-23 Screening for malignant [facility] Test 00:00:00 neoplasm of colon Medical Ce [facility]ter (procedure) [code = 883053173] Future Scheduled 2029-03-23 Screening for malignant [facility] Test 00:00:00 neoplasm of colon Medical Ce nter (procedure) [code = 722253959] Future Scheduled 2029-03-23 Screening for malignant [facility] Test 00:00:00 neoplasm of colon Medical Ce [facility]ter (procedure) [code = 347072302] Future Scheduled 2029-03-23 Screening for malignant [facility] Test 00:00:00 neoplasm of colon Medical Ce nter (procedure) [code = 586838379] Future Scheduled 2029-03-23 Screening for malignant [facility] Test 00:00:00 neoplasm of colon Medical Ce nter (procedure) [code = 636719501] Future Scheduled 2029-03-23 Screening for malignant [facility] Test 00:00:00 neoplasm of colon Medical Ce nter (procedure) [code = 844269346] Future Scheduled 2022-05-24 IMM Influenza Seasonal H [...] 00:00:00 neoplasm of colon (procedure) [code = 928340110] Future Scheduled 2020-02-14 Screening for malignant [facility] Test 00:00:00 neoplasm of colon (procedure) [code = 744878482] Future Scheduled 2020-02-14 Screening for malignant [facility] Test 00:00:00 neoplasm of colon (procedure) [code = 346657353] Future Scheduled 2020-02-14 Screening for malignant [facility] Test 00:00:00 neoplasm of colon (procedure) [code = 326739519] Future Scheduled 2020-02-14 Screening for malignant [facility] Test 00:00:00 neoplasm of colon (procedure) [code = 401522779] Future Scheduled 2020-02-14 Screening for malignant [facility] Test 00:00:00 neoplasm of colon (procedure) [code = 887331341] Future Scheduled 2020-02-14 Screening for malignant [facility] Test 00:00:00 neoplasm of colon (procedure) [code = 571709498] Future Scheduled 2020-02-14 Screening for malignant [facility] Test 00:00:00 neoplasm of colon (procedure) [code = 780513917] Future Scheduled 2020-02-14 Screening for malignant [facility] Test 00:00:00 neoplasm of colon (procedure) [code = 635406617] Future Scheduled 2020-02-14 SHINGLES VACCINES ([address] [facility] 00:00:00 2) [code = SHINGLES [facility] VACCINES (1 of 2)] Future Scheduled 2020-02-14 Screening for malignant [facility] 00:00:00 neoplasm of colon (procedure) [code = 281089938] Future Scheduled 2020-02-14 SHINGLES VACCINES (1 of [...] [facility] 00:00:00 [code = 41508489] Medical Ce nter Future Scheduled 2005 Lipid panel (procedure) [facility] 00:00:00 [code = 51199121] Medical Ce nter Future Scheduled 2005 Lipid panel (procedure) [facility] 00:00:00 [code = 65532181] Medical Ce nter Future Scheduled 2005 Lipid panel (procedure) [facility] 00:00:00 [code = 88426173] Medical Ce nter Future Scheduled 2005 Lipid panel (procedure) [facility] 00:00:00 [code = 22704027] Medical Ce nter Future Scheduled 2005 Lipid panel (procedure) [facility] 00:00:00 [code = 32497927] Medical Ce nter Future Scheduled 2005 Lipid panel (procedure) [facility] 00:00:00 [code = 83002439] Medical Ce nter Future Scheduled 2005 Lipid panel (procedure) [facility] 00:00:00 [code = 93764677] Medical Ce nter Future Scheduled 2005 Lipid panel (procedure) [facility] 00:00:00 [code = 79967403] Medical Ce nter Future Scheduled 2005 Lipid panel (procedure) [facility] 00:00:00 [code = 67770850] Medical Ce nter Future Scheduled 2005 Lipid panel (procedure) [facility] 00:00:00 [code = 59347165] Medical Ce nter Future Scheduled 1989 DTAP/TDAP/TD [...] colon Medical Ce nter (procedure) [code = 483187437] Future Scheduled 1970 Screening for malignant [facility] 00:00:00 neoplasm of colon Medical Ce [facility]ter (procedure) [code = 678442775] Future Scheduled 1970 Sigmoidoscopy [code = [facility]] [facility] Future Scheduled 1970 Fluoride Varnish [facility]code [facility]:00 = Fluoride Varnish] Future Scheduled 1970 Screening for malignant [facility] Test 00:00:00 neoplasm of colon Medical Ce [facility]ter (procedure) [code = 361455867] Future Scheduled 1970 Screening for malignant [facility] Test 00:00:00 neoplasm of colon Medical Ce [facility]ter (procedure) [code = 446357266] Future Scheduled 1970 Sigmoidoscopy [code = [facility] S[facility]] Medical Cent[facility] r Future Scheduled 1970 CT Colonography (combo) [facility] 00:00:00 [code = CT Colonography [facility] (combo)] Future Scheduled 1970 Screening for malignant [facility] 00:00:00 neoplasm of colon Medical Ce [facility]ter (procedure) [code = 873962672] Future Scheduled 1970 Screening for malignant [facility] 00:00:00 neoplasm of colon Medical Ce [facility]ter (procedure) [code = 327854922] Future Scheduled 1970 Sigmoidoscopy [code = [facility] Sigmoidoscopy] Medical Cent[facility] r Future Scheduled 1970 CT Colonography (combo) [facility] 00:00:00 [code = CT Colonography [facility] (combo)] Future Scheduled 1970 Screening for malignant [facility] 00:00:00 neoplasm of colon Medical Ce [facility]ter (procedure) [code = 650816957] Future Scheduled 1970 Screening for malignant [facility] 00:00:00 neoplasm of colon Medical Ce nter (procedure) [code = 993191592] Future Scheduled 1970 Sigmoidoscopy [code = [facility] S[facility]oscopy] Medical Cent[facility] r Future Scheduled 1970 CT Colonography (combo) [facility] 00:00:00 [code = CT Colonography [facility] (combo)] Future Scheduled 1970 Screening for malignant [facility] 00:00:00 neoplasm of colon Medical Ce [facility]ter (procedure) [code = 196307386] Future Scheduled 1970 Screening for malignant [facility] Test 00:00:00 neoplasm of colon Medical Ce [facility]ter (procedure) [code = 442405867] Future Scheduled 1970 Sigmoidoscopy [code = [facility] Sigmoidoscopy] Medical Cent[facility] r Future Scheduled 1970 CT Colonography (combo) [facility] 00:00:00 [code = CT Colonography [facility] (combo)] Future Scheduled 1970 Screening for malignant [facility] 00:00:00 neoplasm of colon Medical Ce nter (procedure) [code = 255575581] Future Scheduled 1970 Screening for malignant [facility] 00:00:00 neoplasm of colon Medical Ce nter (procedure) [code = 895421537] Future Scheduled 1970 Sigmoidoscopy [facility]code [facility]oscopy] Medical Angele r Future Scheduled 1970 CT Colonography (combo) [facility] 00:00:00 [code = CT [facility] ([facility] Future Scheduled 1970 Screening for malignant [facility] 00:00:00 neoplasm of colon Medical Ce nter (procedure) [code = 215860041] Future Scheduled 1970 Screening for malignant [facility] 00:00:00 neoplasm of colon Medical Ce nter (procedure) [code = 418623597] Future Scheduled 1970 Sigmoidoscopy [facility]code [facility] Sigmoidoscopy] Medical Angele r Future Scheduled 1970 CT Colonography (combo) [facility] 00:00:00 [code = CT [facility] (com[facility])] Future Scheduled 1970 Screening for malignant [facility] 00:00:00 neoplasm of colon Medical Ce nter (procedure) [code = 201188155] Future Scheduled 1970 Screening for malignant [facility] 00:00:00 neoplasm of colon Medical Ce nter (procedure) [code = 682300053] Future Scheduled 1970 Sigmoidoscopy [facility]code = [facility] Sigmoidoscopy] Medical Seda r Future Scheduled 1970 CT Colonography (combo) [facility] 00:00:00 [code = CT [facility] ([facility])] Future Scheduled 1970 Screening for malignant [facility] 00:00:00 neoplasm of colon Medical Ce nter (procedure) [code = 212984413] Future Scheduled 1970 Screening for malignant [facility] 00:00:00 neoplasm of colon Medical Ce nter (procedure) [code = 964366585] Future Scheduled 1970 Sigmoidoscopy [facility]code = [facility] Sigmoidoscopy] Medical Angele r Future Scheduled 1970 CT Colonography (combo) [facility] 00:00:00 [code = CT [facility] ([facility])] Future Scheduled 1970 Screening for malignant [facility] 00:00:00 neoplasm of colon Medical Ce nter (procedure) [code = 543876715] Future Scheduled 1970 Screening for malignant [facility] 00:00:00 neoplasm of colon Medical Ce nter (procedure) [code = 186071056] Future Scheduled 1970 Sigmoidoscopy [facility]code = [facility] Sigmoidoscopy] Medical Angele r Future Scheduled 1970 CT Colonography (combo) [facility] 00:00:00 [code = CT Colonography [facility] (combo)] Encounters Start End Encounter Admission Attending Care Care Encounter Source Date/Time Date/Time Type Type Clinicians Facility Department ID 2020-02-23 Inpatient HCAPM LENNY [id number] [facility] 18:42:00 89 [facility] 2020-02-17 Inpatient EM Avtar, HCAPM MAS [id number] [facility] 00:22:00 Oladipo 75 [facility] 2020-01-05 Inpatient UR Perea, HCAPM MEDI.01 [id number] [facility] 20:23:00 Mark 40 [facility] 2019-12-13 Inpatient HCAMN JULIA [id number] [facility] 17:52:00 47 [facility] 2022-03-29 2022-03-29 Emergency EM White, HCACL AERS [id number] [facility] 14:26:00 16:45:00 Steve Adams [facility] 2022-03-29 2022-03-29 Emergency EM White, HCACL HCACL [id number] [facility] 14:26:00 16:45:00 Steve Luu06 [facility] 2022-03-25 2022-03-26 Inpatient E RICHARD [facility] MED 7503 [facility] 13:38:00 10:16:00 , YESSI 2022-03-15 2022-03-18 Emergency E RADHA [facility] MED 7502 [facility] 13:36:00 18:59:00 NELSON 2022-03-13 2022-03-13 Emergency [facility] [id number] Lynne 15:33:00 20:25:00 [facility] 2022-03-13 2022-03-13 Emergency [facility] [id number] Lynne 15:33:00 20:25:00 [facility] 2022-03-13 2022-03-13 Outpatient RONALD [facility] [id number] Lynne 00:00:00 00:00:00 [facility] 2022-03-06 2022-03-09 Inpatient ER ANYALEÓN MERAZ [facility] Emergency [id number] [facility] 12:16:00 12:55:00 2022-03-06 2022-03-09 [facility] [id number] [facility] 12:16:00 12:55:00 Encounter Dee Dee Montalvo Fang-Ying M edical Heinen, [facility] 2022-03-06 2022-03-[address] [facility] [id number] [facility] 12:16:00 12:55:00 Encounter Dee Dee Montalvo Fang-Ying M edical Heinen, Allison PLiseth [facility] León Bain Colin 2022-03-06 2022-03-06 Outpatient [facility] [id number] [employer] [facility] 00:00:00 23:59:00 Cynthia 2022-03-06 2022-03-[address] [facility] [id number] 00:00:00 00:00:[address] [facility] 2022-03-06 2022-03-06 Travel [facility] [id number] [facility] 00:[facility]:00 [facility] 2022-03-06 2022-03-[address] [facility] [id number] 00:00:00 00:00:[address] [facility] 2022-03-06 2022-03-06 Travel [facility] [id number] [facility] 00[facility]00 [facility] 2022-02-18 2022-02-20 Emergency Teddy Carbajal [facility] [id number] Lynne 13:58:00 11:55:00 Nehal [facility] Derik Lazaroish Kobe Chavez 2022-02-18 2022-02-20 Emergency Teddy Carbajal [facility] [id number] [place] 13:58:00 11:55:00 Nehal [facility] Derik Lazaroish Kobe Chavez 2022-02-18 2022-02-18 [facility] [id number] [place] 15:19:05 15:23:18 [facility] 2022-02-18 2022-02-18 [facility]patient [facility] [id number] [place] 13:58:00 13:58:00 [facility] 2022-02-18 2022-02-18 [facility]patient [facility] [id number] [place] 00:00:00 00:00:00 , OSCAR Daniels 2022-02-07 2022-02-11 [facility] [id number] [place] 13:40:00 13:22:00 [facility] 2022-02-07 2022-02-11 [facility] [id number] [place] 13:40:00 13:22:00 Encounter Antonieta [facility] 2022-02-07 2022-02-07 Outpatient 1 MEGHAN ISLAS [facility] [id number] [place] 13:40:00 13:40:00 [facility] 2022-01-30 2022-01-30 Emergency SEAN Tara [facility] [id number] [facility] 17:02:00 18:29:00 Dwain 53 [facility] 2022-01-30 2022-01-30 Emergency SEAN Pacheco [facility] [id number] [facility] 17:02:00 18:29:00 Dwain [id number] [facility] 2022-01-22 2022-01-22 Emergency [facility] [id number] [place] 17:24:00 20:39:00 [facility] 2022-01-22 2022-01-22 Emergency [facility] [id number] [place] 17:24:00 20:39:00 [facility] 2022-01-16 2022-01-21 Emergency Raymon Martin [facility] [id number] [place] 11:04:00 18:08:00 Karin Bassett [facility] Darrion Craig [facility] 2022-01-16 2022-01-21 Emergency Raymon Martin [facility] [id number] Lynne 11:04:00 18:08:00 Karin Bassett [facility] Darrion Craig [facility] 2022-01-19 2022-01-19 Outpatient [facility] [id number] Lynne 12:34:08 13:29:31 [facility] 2022-01-16 2022-01-16 Outpatient [facility] [id number] [place] 19:42:28 20:01:28 [facility] 2022-01-16 2022-01-16 Outpatient [facility] [id number] [place] 11:04:00 11:04:00 KARIN Frances 2022-01-10 2022-01-11 [facility] [id number] [place] 10:58:00 11:20:00 [facility]ene [facility] 2022-01-10 2022-01-11 Emergency [facility] [id number] [place] 10:58:00 11:20:00 Helene Ring [facility] 2022-01-10 2022-01-10 Outpatient 1 [facility] [id number] [place] 10:58:00 10:58:00 [facility] 2022-01-08 2022-01-09 Emergency [facility] [id number] [place] 17:57:00 02:50:00 [facility] 2022-01-08 2022-01-09 Emergency [facility] [id number] [place] 17:57:00 02:50:00 [facility] 2022-01-08 2022-01-08 Emergency [facility] [id number] [place] 21:40:34 21:50:19 [facility] 2021-09-23 2021-09-23 Emergency EM Amita Raffaele [facility] AERS [id number] [facility] 19:35:00 21:10:[address] [place] [address] 2021-09-13 2021-09-13 Emergency EM Raffaele Levi HCACL AERS [id number] [facility] 14:57:00 16:37:00 06 [facility] 2021-07-27 2021-07-27 Emergency EM Kateryna, HCAMN JULIA [id number] [facility] 10:15:00 12:36:00 Tarek 17 [facility] 2021-07-22 2021-07-22 Emergency EM Marcelina, HCACL AERS [id number] [facility] 04:25:00 08:20:00 Tarrell 74 [facility] 2021-06-27 2021-06-27 Emergency EM White, HCACL AERS [id number] [facility] 15:31:00 17:37:00 Steve 17 [facility] 2021-04-28 2021-05-01 Inpatient EM Aisha, HCACL MAS [id number] [facility] 21:05:00 14:18:00 Christopher 03 Cl ear [facility] 2020-02-24 2020-02-24 Outpatient Eliazar HCACL LABO [id number] [facility] 07:51:00 07:51:00 Mark 96 [facility] 2020-02-18 2020-02-18 Outpatient Avtar HCACL LABO [id number] [facility] 00:26:00 00:26:00 Oladipo 05 [facility] 2020-01-05 2020-01-05 Outpatient MASON PereaCL [facility] [id number] [facility] 23:52:00 23:52:00 Mark 24 [facility] 2017-11-02 2017-11-02 Emergency E [facility] MED [id number] 08:33:00 08:33:00 [facility] 2017-08-05 2017-08-05 Outpatient [facility] [id number] [place] 00:00:00 00:00:00 [facility] 2017-07-28 2017-07-28 Outpatient [facility] [id number] [place] 00:00:00 00:00:00 [facility] 2017-06-24 2017-06-24 Outpatient [facility] [id number] [place] 00:00:00 00:00:00 [facility] 2017-06-22 2017-06-22 Emergency [facility] [id number] [place] 21:37:29 21:37:29 Health 2017-06-22 2017-06-22 Emergency [facility] MED [id number] [place] 21:06:00 21:06:00 Health 2017-06-22 2017-06-22 Outpatient [facility] [id number] [place] 10:02:31 10:02:31 Health 2017-06-09 2017-06-09 Outpatient [facility] [id number] [place] 00:00:00 00:00:00 [facility] 2017-06-09 2017-06-09 Outpatient [facility] [id number] [place] 00:00:00 00:00:00 [facility] 2017-05-08 2017-05-08 Emergency [facility] MED [id number] [place] 01:04:44 01:04:44 [facility] 2017-05-05 2017-05-05 Emergency E [facility] MED [id number] 08:11:00 08:11:00 [facility] 2017-04-15 2017-04-15 Emergency E [facility] MED [id number] 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 BASIC METABOLIC [id number] 14:56:00 Test Item Value Reference Range Interpretation [...] MG/DL 70-110 N - XR CHEST 1 [id number] 00:00:00 [facility] MARIA ISABEL JOSEPH : 1970 Sex: M FAX: Steve Urias MD [phone] [place]: [place] St: REG Name: MARIA ISABEL JOSEPH FSED : 1970 Age/S: 52/M [address] [facility] Unit #: [id number] Loc: [place] [address] Phys: Steve Urias MD Acct: [id number] Dis Date: Status: REG ER PHONE #: Exam Date: 03/29/2022 1501 FAX #: Reason: Weakness EXAMS: CPT CODE: [id number] XR CHEST 1 V 48592 PROCEDURE INFORMATION: Exam: XR Chest Exam date and time: 03/29/2022 2:31PM Age: 52 years old Clinical indication: Other: [...] Bailey M.D. CC: Steve Urias MD Technologist: Avtar Lang RT(R)(CT) Trnscrd Date/Time/By: 03/29/2022 (4110) : By: GarettTTV Orig Print D/T: S: 03/29/2022 (6317) PAGE 1 Signed ReportHEPATIC FUNCTION [id number] 06:45:03 Test Item Value Reference Range Interpretation [...] (test code = 13 U/L 6-55 347) Utility Operator ID - ERWIN WBASIC METABOLIC [id number] 06:45:02 Test Item Value Reference Range Interpretation [...] S NOT APPLICABLE FOR DIALYSIS PATIEN TS. Utility Operator ID - ERWIN WCBC W/PLT COUNT & AUTO [id number] 06:26:54 Test Item Value Reference Range Interpretation [...] (BEAKER) (test code = 2801) U/S, RENAL, [id number] 19:23:00Reason for exam:->acute kidney injury [facility] : 1970 Sex: [...] SARS-Co V-2 (test code = target nucleic 59624-4) acids are not detected in thi s [...] revoked sooner. Fact Sheet for Healthcare Providers: https://www.[employer]/Documents/Xp ert%20Xpress%20SAR S%20CoV-2/Fact%20S heets/302-3802%20S ARS-COV-2%20HEALTH CARE%20PROVIDERS%2 0FACT%20SHEET.pdf Fact Sheet for Healthcare Patients: https://www.[employer]/Documents/Xp ert%20Xpress%20SAR S%20CoV-2/Fact%20S heets/302-3801%20S ARS-COV-2%20PATIEN T%20FACT%20SHEET.p df Lab Interpretation Normal (test code = 51226-9) [facility]2022-03-06 19:17:07 Test Item Value Reference Interpretation Comments Range SARS-COV2/RT-PCR Negative Negative The SARS-Co V-2 (test code = target nucleic 44120-1) acids are not detected in thi s [...] revoked sooner. Fact Sheet for Healthcare Providers: https://www.[employer]/Documents/Xp ert%20Xpress%20SAR S%20CoV-2/Fact%20S heets/302-3802%20S ARS-COV-2%20HEALTH CARE%20PROVIDERS%2 0FACT%20SHEET.pdf Fact Sheet for Healthcare Patients: https://www.[employer]/Documents/Xp ert%20Xpress%20SAR S%20CoV-2/Fact%20S heets/302-3801%20S ARS-COV-2%20PATIEN T%20FACT%20SHEET.p df Lab Interpretation Normal (test code = 95897-2) [facility]As[facility]omatic ONLY)2022-03-06 19:17:07 Test Item Value Reference Interpretation Comments Range SARS-COV2/RT-PCR Negative Negative The SARS-Co V-2 (test code = target nucleic 09066-4) acids are not detected in thi s [...] revoked sooner. Fact Sheet for Healthcare Providers: https://www.[employer]/Documents/Xp ert%20Xpress%20SAR S%20CoV-2/Fact%20S heets/302-3802%20S ARS-COV-2%20HEALTH CARE%20PROVIDERS%2 0FACT%20SHEET.pdf Fact Sheet for Healthcare Patients: https://www.[employer]/Documents/Xp ert%20Xpress%20SAR S%20CoV-2/Fact%20S heets/302-3801%20S ARS-COV-2%20PATIEN T%20FACT%20SHEET.p df Lab Interpretation Normal (test code = 72882-3) [facility]Asymptomatic ONLY)2022-03-06 19:17:07 Test Item Value Reference Interpretation Comments Range SARS-COV2/RT-PCR Negative Negative The SARS-Co V-2 (test code = target nucleic 51353-5) acids are not detected in thi s [...] revoked sooner. Fact Sheet for Healthcare Providers: https://www.[employer]/Documents/Xp ert%20Xpress%20SAR S%20CoV-2/Fact%20S heets/302-3802%20S ARS-COV-2%20HEALTH CARE%20PROVIDERS%2 0FACT%20SHEET.pdf Fact Sheet for Healthcare Patients: https://wwwAtari/Documents/Xp ert%20Xpress%20SAR S%20CoV-2/Fact%20S heets/302-3801%20S ARS-COV-2%20PATIEN T%20FACT%20SHEET.p df Lab Interpretation Normal (test code = 79974-5) [facility]Asymptomatic ONLY)2022-03-06 19:17:07 Test Item Value Reference Interpretation Comments Range SARS-COV2/RT-PCR Negative Negative The SARS-Co V-2 (test code = target nucleic 57770-1) acids are not detected in thi s [...] individual s suspected of COVID-19 by the healthcare provider. GILBERTO (test code = This [...] revoked sooner. Fact Sheet for Healthcare Providers: https://www.[employer]/Documents/Xp ert%20Xpress%20SAR S%20CoV-2/Fact%20S heets/302-3802%20S ARS-COV-2%20HEALTH CARE%20PROVIDERS%2 0FACT%20SHEET.pdf Fact Sheet for Healthcare Patients: https://wwwAtari/Documents/Xp ert%20Xpress%20SAR S%20CoV-2/Fact%20S heets/302-3801%20S ARS-COV-2%20PATIEN T%20FACT%20SHEET.p df Lab Interpretation Normal (test code = 12264-6) [facility]As[facility]omatic ONLY)2022-03-06 19:17:07 Test Item Value Reference Interpretation Comments Range SARS-COV2/RT-PCR Negative Negative The SARS-Co V-2 (test code = target nucleic 40988-9) acids are not detected in thi s [...] revoked sooner. Fact Sheet for Healthcare Providers: https://www.[employer]/Documents/Xp ert%20Xpress%20SAR S%20CoV-2/Fact%20S heets/302-3802%20S ARS-COV-2%20HEALTH CARE%20PROVIDERS%2 0FACT%20SHEET.pdf Fact Sheet for Healthcare Patients: https://www.[employer]/Documents/Xp ert%20Xpress%20SAR S%20CoV-2/Fact%20S heets/302-3801%20S ARS-COV-2%20PATIEN T%20FACT%20SHEET.p df Lab Interpretation Normal (test code = 96528-0) [facility]As[facility]omatic ONLY)2022-03-06 19:17:07 Test Item Value Reference Interpretation Comments Range SARS-COV2/RT-PCR Negative Negative The SARS-Co V-2 (test code = target nucleic 78271-2) acids are not detected in thi s [...] revoked sooner. Fact Sheet for Healthcare Providers: https://www.[employer]/Documents/Xp ert%20Xpress%20SAR S%20CoV-2/Fact%20S heets/302-3802%20S ARS-COV-2%20HEALTH CARE%20PROVIDERS%2 0FACT%20SHEET.pdf Fact Sheet for Healthcare Patients: https://www.[employer]/Documents/Xp ert%20Xpress%20SAR S%20CoV-2/Fact%20S heets/302-3801%20S ARS-COV-2%20PATIEN T%20FACT%20SHEET.p df Lab Interpretation Normal (test code = 74504-4) [facility]Asymptomatic ONLY)2022-03-06 19:17:07 Test Item Value Reference Interpretation Comments Range SARS-COV2/RT-PCR Negative Negative The SARS-Co V-2 (test code = target nucleic 05478-6) acids are not detected in thi s [...] revoked sooner. Fact Sheet for Healthcare Providers: https://www.[employer]/Documents/Xp ert%20Xpress%20SAR S%20CoV-2/Fact%20S heets/302-3802%20S ARS-COV-2%20HEALTH CARE%20PROVIDERS%2 0FACT%20SHEET.pdf Fact Sheet for Healthcare Patients: https://www.[employer]/Documents/Xp ert%20Xpress%20SAR S%20CoV-2/Fact%20S heets/302-3801%20S ARS-COV-2%20PATIEN T%20FACT%20SHEET.p df Lab Interpretation Normal (test code = 39945-7) [facility]As[facility]omatic ONLY)2022-03-06 19:17:07 Test Item Value Reference Interpretation Comments Range SARS-COV2/RT-PCR Negative Negative The SARS-Co V-2 (test code = target nucleic 42700-3) acids are not detected in thi s [...] om SARS-CoV-2 in a [facility]oph[facility]ab [facility] from individual s suspected of COVID-19 [...] revoked sooner. Fact Sheet for Healthcare Providers: https://www.[employer]/Documents/Xp ert%20Xpress%20SAR S%20CoV-2/Fact%20S heets/302-3802%20S ARS-COV-2%20HEALTH CARE%20PROVIDERS%2 0FACT%20SHEET.pdf Fact Sheet for Healthcare Patients: https://www.[employer]/Documents/Xp ert%20Xpress%20SAR S%20CoV-2/Fact%20S heets/302-3801%20S ARS-COV-2%20PATIEN T%20FACT%20SHEET.p df Lab Interpretation Normal (test code = 92755-0) [facility]As[facility]omatic ONLY)2022-03-06 19:17:07 Test Item Value Reference Interpretation Comments Range SARS-COV2/RT-PCR Negative Negative The SARS-Co V-2 (test code = target nucleic 83253-4) acids are not detected in thi s [...] om SARS-CoV-2 in a nasopharyngeal swab [facility] from individual s suspected of COVID-19 [...] revoked sooner. Fact Sheet for Healthcare Providers: https://www.[employer]/Documents/Xp ert%20Xpress%20SAR S%20CoV-2/Fact%20S heets/302-3802%20S ARS-COV-2%20HEALTH CARE%20PROVIDERS%2 0FACT%20SHEET.pdf Fact Sheet for Healthcare Patients: https://www.[employer]/Documents/Xp ert%20Xpress%20SAR S%20CoV-2/Fact%20S heets/302-3801%20S ARS-COV-2%20PATIEN T%20FACT%20SHEET.p df Lab Interpretation Normal (test code = 95690-2) [facility])2022-03-06 19:17:07 Test Item Value Reference Range Interpretation Comments SARS-COV2/RT-PCR Negative Negative The SARS-Co V-2 target (test code = nucleic acids a re not 2407078) detected in thi s specimen. Negative result [...] revoked sooner. Fact Sheet for Healthcare Providers: https://www.[employer]/Documents/Xpert%20Xpress%20SARS%20CoV-2/Fact%20Sheets/302-3802%05BXUS-HLL-7%20 HEALTHCARE%20PROVIDERS%20FACT%20SHEET.pdf Fact Sheet for Healthcare Patients: https://www.[employer]/Documents/Xpert%20Xp ress%20SARS%20CoV-2/Fact%20Sheets/3023801%31DFQE-DGC-0%20PATIENT%20FACT%20SHEET .pdfCREATINE KINASE (CK)2022-03-06 16:19:14 Test Item Value Reference Range Interpretation Comments CREATINE KINASE TOTAL (BEAKER) (test 141 U/L 29-200 code = 380) Utility Operator ID - BST4, [id number] 15:13:16 Test Item Value Reference Range Interpretation Comments FREE T4 (BEAKER) (test code = 655) 0.95 ng/dL 0.70-1.48 Utility Operator ID - BSTSH/FREE T4 IF [id number] 15:13:16 Test Item Value Reference Range Interpretation Comments THYROID STIMULATING HORMONE 2.060 uIU/mL 0.350-4.940 (BEAKER) (test code = 772) Utility Operator ID - BSB-TYPE NATRIURETIC FACTOR (BNP)2022-03-06 14:26:30 Test Item Value Reference Range Interpretation Comments B-TYPE NATRIURETIC PEPTIDE (BEAKER) < pg/mL 0-100 (test code = 700) Utility Operator ID - JSHIGH SENSITIVITY TROPONIN [id number] 14:14:54 Test Item Value Reference Range Interpretation Comments HIGH SENSITIVITY < pg/ml See_Comment [Automated message] TROPONIN I (test code = The system which 6528009) generated this result transmitted ref erence range: <=35. Th e reference range was not used to interpr et this result as normal/abnormal . Utility Operator ID - JSThe SKIVER MACHINE STAT High Sensitivity Troponin-I results should be used in conjunctionwith other diagnostic information such as ECG, clinical observations and information, and patient symptoms to aid in the diagnosis of IN.RAD, CHEST, 1 VIEW, NON [id number] 14:10:00Reason for exam:- >NEUROLOGIC PROBLEMShould this be performed at the bedside?->Yes [facility] : 1970 Sex: MFINAL REPORT Chest, 1 view, 03/06/2022 2:03 PM. History: Neurologic problem. Comparison: 03/28/2019. Discussion: The cardiomediastinal silhouette and pulmonary vasculature are within normal limits for a portable exam. The lungs are clear without evidence of consolidation or effusion. The soft tissues and osseous structures are intact. IMPRESSION: No acute cardiopulmonary abnormality. Signed: [facility] Verified Date/Time: 03/06/2022 14:10:44 REHENSIVE METABOLIC [id number] 14:08:22 Test Item Value Reference Range Interpretation [...] S NOT APPLICABLE FOR DIALYSIS PATIEN TS. Utility Operator ID - [id number] 14:07:49 Test Item Value Reference Range Interpretation Comments MAGNESIUM (BEAKER) (test code = 2.0 mg/dL 1.6-2.6 627) Utility Operator ID - [id number] 14:07:49 Test Item Value Reference Range Interpretation Comments PHOSPHORUS (BEAKER) (test code = 5.6 mg/dL 2.3-4.7 H 604) Utility Operator ID - JSLACTIC ACID, [id number] 13:51:04 Test Item Value Reference Range Interpretation Comments LACTATE BLOOD VENOUS 1.32 mmol/L 0.50-2.20 Specime n slightly (2) (BEAKER) (test hemolyzed code = 1515) Utility Operator ID - JSCBC W/PLT COUNT & AUTO [id number] 13:47:24 Test Item Value Reference Range Interpretation [...] (BEAKER) (test code = 2801) Coronavirus, CoVID-19, [id number] 01:07:20 Test Item Value Reference Range Interpretation Comments COVID-19 (SARS-COV-2) Not Detected Not Detected INTERP RETATION: No (test code = 73202-5) detect able levels of SARS-CoV-2 Coronavirus (COVID-19) [...] SARS-CoV-2 mole cular diagnostic assa y utilizes Community Health Representative Mediated Amplification ( TMA) technology to r apidly detect the SARS -CoV-2 (COVID-19) viru s from respiratory adriana ples. In accordance w ith the FDA's kamran nce document "Polic y for Diagnostic Test s for Coronavirus Disease-2019 du [facility] the Public [facility] Emergency", thi s test was developed, and its performance characteristics were verified by the [facility] molecular diagn ostics laboratory and is authorized for clinical diagno stic use. This labor atory is certified un est[place]an the Clinical Laboratory Improvement Amendments (CLI A) as qualified to pe rform high complexity clinical labora tory testing. Lab Interpretation Normal (test code = 60506-6) [facility], [facility], [id number] 01:07:20 Test Item Value Reference Range Interpretation Comments COVID-19 (SARS-COV-2) Not Detected Not Detected INTERP RETATION: No (test code = 37679-8) detect able levels of SARS-CoV-2 Coronavirus (COVID-19) [...] SARS-CoV-2 mole cular diagnostic assa y utilizes Community Health Representative Mediated Amplification ( TMA) technology to r apidly detect the SARS -CoV-2 (COVID-19) viru s from respiratory adriana ples. In accordance w ith the FDA's kamran nce document "Polic y for Diagnostic Test s for Coronavirus Disease-2019 du [facility] the [facility] th Emergency", thi s test was developed, and its performance characteristics were verified by the [facility] molecular diagn ostics laboratory and is authorized for clinical diagno stic use. This labor atory is certified un [place] the Clinical Laboratory Improvement Amendments (CLI A) as qualified to pe rform high complexity clinical labora tory testing. Lab Interpretation Normal (test code = 06913-3) [facility] KandiCoronavirus, CoVID-19, [id number] 01:07:20 Test Item Value Reference Range Interpretation Comments COVID-19 (SARS-COV-2) Not Detected Not Detected INTERP RETATION: No (test code = 80581-9) detect able levels of SARS-CoV-2 Coronavirus (COVID-19) [...] SARS-CoV-2 mole cular diagnostic assa y utilizes Community Health Representative Mediated Amplification ( TMA) technology to r apidly detect the SARS -CoV-2 (COVID-19) viru s from respiratory adriana ples. In accordance w ith the FDA's kamran nce document "Polic y for Diagnostic Test s for Coronavirus Disease-2019 du ring the [facility] th Emergency", thi s test was developed, and its performance characteristics were verified by the [facility] molecular diagn ostics laboratory and is authorized for clinical diagno stic use. This labor atory is certified un [place] the Clinical Laboratory Improvement Amendments (CLI A) as qualified to pe rform high complexity clinical labora tory testing. Lab Interpretation Normal (test code = 28331-5) [facility], [id number] 01:07:20 Test Item Value Reference Range Interpretation Comments COVID-19 (SARS-COV-2) Not Detected Not Detected INTERP RETATION: No (test code = 41871-0) detect able levels of SARS-CoV-2 Coronavirus (COVID-19) [...] SARS-CoV-2 mole cular diagnostic assa y utilizes Community Health Representative Mediated Amplification ( TMA) technology to r apidly detect the SARS -CoV-2 (COVID-19) viru s from respiratory adriana ples. In accordance w ith the FDA's kamran nce document "Polic y for Diagnostic Test s for Coronavirus Disease-2019 du [facility] the Public [facility]", thi s test was developed, and its performance characteristics were verified by the [facility] molecular diagn ostics laboratory and is authorized for clinical diagno stic use. This labor atory is certified un est[place] the Clinical Laboratory Improvement Amendments (CLI A) as qualified to pe rform high complexity clinical labora tory testing. Lab Interpretation Normal (test code = 58770-2) [facility], [facility]-19, [id number] 01:07:20 Test Item Value Reference Range Interpretation Comments COVID-19 (SARS-COV-2) Not Detected Not Detected INTERP RETATION: No (test code = 77215-8) detect able levels of SARS-CoV-2 Coronavirus (COVID-19) [...] SARS-CoV-2 mole cular diagnostic assa y utilizes Community Health Representative Mediated Amplification ( TMA) technology to r apidly detect the SARS -CoV-2 (COVID-19) viru s from respiratory adriana ples. In accordance w ith the FDA's kamran nce document "Polic y for Diagnostic Test s for Coronavirus Disease-2019 du ring the Public [facility]", thi s test was developed, and its performance characteristics were verified by the [facility] molecular diagn ostics laboratory and is authorized for clinical diagno stic use. This labor atory is certified un [place] the Clinical Laboratory Improvement Amendments (CLI A) as qualified to pe rform high complexity clinical labora tory testing. Lab Interpretation Normal (test code = 55775-7) [facility]-19, [id number] 01:07:20 Test Item Value Reference Range Interpretation Comments COVID-19 (SARS-COV-2) Not Detected Not Detected INTERP RETATION: No (test code = 84801-2) detect able levels of SARS-CoV-2 Coronavirus (COVID-19) [...] SARS-CoV-2 mole cular diagnostic assa y utilizes Community Health Representative Mediated Amplification ( TMA) technology to r apidly detect the SARS -CoV-2 (COVID-19) viru s from respiratory adriana ples. In accordance w ith the FDA's kamran nce document "Polic y for Diagnostic Test s for Coronavirus Disease-2019 du [facility] the Public [facility]", thi s test was developed, and its performance characteristics were verified by the [facility] molecular diagn ostics laboratory and is authorized for clinical diagno stic use. This labor atory is certified un [place] the Clinical Laboratory Improvement Amendments (CLI A) as qualified to pe rform high complexity clinical labora tory testing. Lab Interpretation Normal (test code = 14170-9) [facility], [facility]-19, [id number] 01:07:20 Test Item Value Reference Range Interpretation Comments COVID-19 (SARS-COV-2) Not Detected Not Detected INTERP RETATION: No (test code = 71712-4) detect able levels of SARS-CoV-2 Coronavirus (COVID-19) [...] SARS-CoV-2 mole cular diagnostic assa y utilizes Community Health Representative Mediated Amplification ( TMA) technology to r apidly detect the SARS -CoV-2 (COVID-19) viru s from respiratory adriana ples. In accordance w ith the FDA's kamran nce document "Polic y for Diagnostic Test s for Coronavirus Disease-2019 du [facility] the Public [facility] Emergency", thi s test was developed, and its performance characteristics were verified by the [facility] molecular diagn ostics laboratory and is authorized for clinical diagno stic use. This labor atory is certified un [place] the Clinical Laboratory Improvement Amendments (CLI A) as qualified to pe rform high complexity clinical labora tory testing. Lab Interpretation Normal (test code = 37112-5) [facility] Hospital[facility]ardronavirus, CoVID-19, [id number] 01:07:20 Test Item Value Reference Range Interpretation Comments COVID-19 (SARS-COV-2) Not Detected Not Detected INTERP RETATION: No (test code = 71339-8) detect able levels of SARS-CoV-2 Coronavirus (COVID-19) [...] SARS-CoV-2 mole cular diagnostic assa y utilizes Community Health Representative Mediated Amplification ( TMA) technology to r apidly detect the SARS -CoV-2 (COVID-19) viru s from respiratory adriana ples. In accordance w ith the FDA's kamran nce document "Polic y for Diagnostic Test s for Coronavirus Disease-2019 du [facility] the Public [facility]", thi s test was developed, and its performance characteristics were verified by the [facility] molecular diagn ostics laboratory and is authorized for clinical diagno stic use. This labor atory is certified un [place] the Clinical Laboratory Improvement Amendments (CLI A) as qualified to pe rform high complexity clinical labora tory testing. Lab Interpretation Normal (test code = 44692-4) Lynne Surajronavirus, CoVID-19, [id number] 01:07:20 Test Item Value Reference Range Interpretation Comments COVID-19 (SARS-COV-2) Not Detected Not Detected INTERP RETATION: No (test code = 64691-2) detect able levels of SARS-CoV-2 Coronavirus (COVID-19) [...] SARS-CoV-2 mole cular diagnostic assa y utilizes Community Health Representative Mediated Amplification ( TMA) technology to r apidly detect the SARS -CoV-2 (COVID-19) viru s from respiratory adriana ples. In accordance w ith the FDA's kamran nce document "Polic y for Diagnostic Test s for Coronavirus Disease-2019 du [facility] the Public [facility]", thi s test was developed, and its performance characteristics were verified by the [facility] molecular diagn ostics laboratory and is authorized for clinical diagno stic use. This labor atory is certified un [place] the Clinical Laboratory Improvement Amendments (CLI A) as qualified to pe rform high complexity clinical labora tory testing. Lab Interpretation Normal (test code = 72905-9) [facility], [id number] 01:07:20 Test Item Value Reference Range Interpretation Comments COVID-19 (SARS-COV-2) Not Detected Not Detected INTERP RETATION: No (test code = 81954-6) detect able levels of SARS-CoV-2 Coronavirus (COVID-19) [...] SARS-CoV-2 mole cular diagnostic assa y utilizes Community Health Representative Mediated Amplification ( TMA) technology to r apidly detect the SARS -CoV-2 (COVID-19) viru s from respiratory adriana ples. In accordance w ith the FDA's kamran nce document "Polic y for Diagnostic Test s for Coronavirus Disease-2019 du [facility] the Public [facility]", thi s test was developed, and its performance characteristics were verified by the [facility] molecular diagn ostics laboratory and is authorized for clinical diagno stic use. This labor atory is certified un est[place] the Clinical Laboratory Improvement Amendments (CLI A) as qualified to pe rform high complexity clinical labora tory testing. Lab Interpretation Normal (test code = 15807-7) [facility]ojai[facility]IPQ[facility]-Ec[facility] ORF1ab Resp Ql OLENA+[id number] 01:07:20 Test Item Value Reference Range Interpretation Comments Hospitalized? (test No code = 60538-6) ICU? (test code = No 96242-0) Symptomatic as No defined by CDC? (test code = 30009-2) Employed in No Healthcare? (test code = 26105-5) Resident in a No congregate care setting (including nursing homes, residential care for people with intellectual and developmental disabilities, psychiatric treatment facilities, group homes, board and care homes, homeless senior living, foster care or other): (test code = 32057-8) SARS-CoV-2 ORF1ab NOT DETECTED Not Detected INTERPRETA TION: No Resp Ql OLENA+probe detectable levels of (test code = SARS-CoV-2 13242-4) Coronavirus (COVID-19) were present in this patient's [...] SARS-CoV-2 mole cular diagnostic assa y utilizes Community Health Representative Mediated Amplification ( TMA) technology to r apidly detect the SARS -CoV-2 (COVID-19) viru s from respiratory adriana ples. In accordance with\\XC2A0\\the FDA's guidance docume nt "Policy for Diagnostic Test s for Coronavirus Disease-2019 du [facility] the [facility] th Emergency", ginger s test was developed, and its performance characteristics were verified by the [facility] molecular diagn ostics laboratory and is authorized for clinical diagno stic use. \\XC2A0\\Ginger s laboratory is certified under the Clinical Labora tory Improvement Amendments (CLI A) as qualified to pe rform high complexity clinical labora tory testing. [facility] docked [id number] 08:09:01 Test Item Value Reference Range Interpretation Comments Glucose POC (test code = 26330972) 85 mg/dL 74-106 Lab Interpretation (test code = Normal 74877-8) [facility] [id number] 08:09:01 Test Item Value Reference Range Interpretation Comments Glucose POC (test code = 40924895) 85 mg/dL 74-106 Lab Interpretation (test code = Normal 17074-6) [facility] [id number] 08:09:01 Test Item Value Reference Range Interpretation Comments Glucose POC (test code = 72997468) 85 mg/dL 74-106 Lab Interpretation (test code = Normal 53807-0) [facility] [id number] 08:09:01 Test Item Value Reference Range Interpretation Comments Glucose POC (test code = 61680573) 85 mg/dL 74-106 Lab Interpretation (test code = Normal 60512-1) [facility] [id number] 08:09:01 Test Item Value Reference Range Interpretation Comments Glucose POC (test code = 71771583) 85 mg/dL 74-106 Lab Interpretation (test code = Normal 58867-4) [facility] [id number] 08:09:01 Test Item Value Reference Range Interpretation Comments Glucose POC (test code = 88233563) 85 mg/dL 74-106 Lab Interpretation (test code = Normal 91381-2) [facility] [id number] 08:09:01 Test Item Value Reference Range Interpretation Comments Glucose POC (test code = 10386069) 85 mg/dL 74-106 Lab Interpretation (test code = Normal 01520-7) [facility] [id number] 08:09:01 Test Item Value Reference Range Interpretation Comments Glucose POC (test code = 30403235) 85 mg/dL 74-106 Lab Interpretation (test code = Normal 29094-7) [facility] docked [id number] 08:09:01 Test Item Value Reference Range Interpretation Comments Glucose POC (test code = 99213159) 85 mg/dL 74-106 Lab Interpretation (test code = Normal 20731-1) [facility]ed [id number] 08:09:01 Test Item Value Reference Range Interpretation Comments Glucose POC (test code = 71425099) 85 mg/dL 74-106 Lab Interpretation (test code = Normal 58302-7) [facility]loymlGNHD-DxJ-5 ORF1ab Resp Ql OLENA+iitvc2903-96-60 23:25:40 Test Item Value Reference Range Interpretation Comments Hospitalized? (test No code = 86100-6) ICU? (test code = No 31180-5) Symptomatic as No defined by CDC? (test code = 18389-6) Employed in No Healthcare? (test code = 07518-8) Resident in a No congregate care setting (including nursing homes, residential care for people with intellectual and developmental disabilities, psychiatric treatment facilities, group homes, board and care homes, homeless senior living, foster care or other): (test code = 88651-8) SARS-CoV-2 ORF1ab NOT DETECTED Not Detected INTERPRETA TION: No Resp Ql OLENA+probe detectable levels of (test code = SARS-CoV-2 12136-0) Coronavirus (COVID-19) were present in this patient's [...] SARS-CoV-2 mole cular diagnostic assa y utilizes Community Health Representative Mediated Amplification ( TMA) technology to r apidly detect the SARS -CoV-2 (COVID-19) viru s from respiratory adriana ples. In accordance with\\XC2A0\\the FDA's guidance docume nt "Policy for Diagnostic Test s for Coronavirus Disease-2019 du [facility] the [facility]", ginger s test was developed, and its performance characteristics were verified by the [facility] molecular diagn ostics laboratory and is authorized for clinical diagno stic use. \\XC2A0\\Thi s laboratory is certified under the Clinical Labora tory Improvement Amendments (CLI A) as qualified to pe rform high complexity clinical labora tory testing. [facility] Lead [id number] 15:46:1012 LEAD EKG FOR [facility] Test Date: 1489-64-23Lmr Name: DORA JOSEPH Department: 5ECIPatient ID: [id number] Room: Gender: M Hr Consultant: [id number]: 1970 Requested By: DARRION Cho Number: [id number] Reading MD: Rene Patterson MeasurementsIntervals [place] Rate: 61 P: 72PR: 152 QRS: 55QRSD: 106 T: 63QT: 398 QTc: 400 Interpretive StatementsSINUS RHYTHMPOSSIBLE RIGHT VENTRICULAR CONDUCTION DELAY [RSR (QR) IN V1/V2]Electronically Signed On 01-22-2022 8:30:45 CDT by Rene [place] [address] Lead [id number] 15:46:1012 LEAD EKG FOR [facility] Test Date: 7457-57-69Jsi Name: DORA JOSEPH Department: 5ECIPatient ID: [id number] Room: Gender: M Hr Consultant: [id number]: 1970 Requested By: DARRION Cho Number: [id number] Reading MD: Rene Patterson MeasurementsIntervals [place] Rate: 61 P: 72PR: 152 QRS: 55QRSD: 106 T: 63QT: 398 QTc: 400 Interpretive StatementsSINUS RHYTHMPOSSIBLE RIGHT VENTRICULAR CONDUCTION DELAY [RSR (QR) IN V1/V2]Electronically Signed On 01-22-2022 8:30:45 CDT by Rene [facility] Lead [id number] 15:46:1012 LEAD EKG FOR [facility] Test Date: 6888-26-38Iwd Name: DORA JOSEPH Department: 5ECIPatient ID: [id number] Room: Gender: M Hr Consultant: [id number]: 1970 Requested By: DARRION Cho Number: [id number] Reading MD: Rene Patterson MeasurementsIntervals [place] Rate: 61 P: 72PR: 152 QRS: 55QRSD: 106 T: 63QT: 398 QTc: 400 Interpretive StatementsSINUS RHYTHMPOSSIBLE RIGHT VENTR ICULAR CONDUCTION DELAY [RSR (QR) IN V1/V2]Electronically Signed On 01-22-2022 8:30:45 CDT by [facility]72798[facility]12 Lead [id number] 15:46:1012 LEAD EKG FOR [facility] Test Date: 5878-18-66Jez Name: DORA JOSEPH Department: 5ECIPatient ID: [id number] Room: Gender: M Hr Consultant: [id number]: 1970 Requested By: DARRION Cho Number: [id number] Reading MD: Rene Patterson MeasurementsIntervals [place] Rate: 61 P: 72PR: 152 QRS: 55QRSD: 106 T: 63QT: 398 QTc: 400 Interpretive StatementsSINUS RHYTHMPOSSIBLE RIGHT VENTRICULAR CONDUCTION DELAY [RSR (QR) IN V1/V2]Electronically Signed On 01-22-2022 8:30:45 CDT by [facility]72798.comMcge[facility] HospitalInnSania12 Lead [id number] 15:46:1012 LEAD EKG FOR [facility] Test Date: 8520-91-73Gtr Name: DORA JOSEPH Department: 5ECIPatient ID: [id number] Room: Gender: M Hr Consultant: [id number]: 1970 Requested By: DARRION Cho Number: [id number] Reading MD: Rene Patterson MeasurementsIntervals [place] Rate: 61 P: 72PR: 152 QRS: 55QRSD: 106 T: 63QT: 398 QTc: 400 Interpretive StatementsSINUS RHYTHMPOSSIBLE RIGHT VENTRICULAR CONDUCTION DELAY [RSR (QR) IN V1/V2]Electronically Signed On 01-22-2022 8:30:45 CDT by Rene Valle Ugkjik62 Lead [id number] 15:46:1012 LEAD EKG FOR [facility] Test Date: 9015-99-18Vdf Name: DORA JOSEPH Department: 5ECIPatient ID: [id number] Room: Gender: M Hr Consultant: [id number]: 1970 Requested By: DARRION Cho Number: [id number] Reading MD: Rene Patterson MeasurementsIntervals [place] Rate: 61 P: 72PR: 152 QRS: 55QRSD: 106 T: 63QT: 398 QTc: 400 Interpretive StatementsSINUS RHYTHMPOSSIBLE RIGHT VENTRICULAR CONDUCTION DELAY [RSR (QR) IN V1/V2]Electronically Signed On 01-22-2022 8:30:45 CDT by Rene Valle Rjimbl92 Lead [id number] 15:46:1012 LEAD EKG FOR [facility] Test Date: [id number] Name: DORA JOSEPH Department: 5ECIPatient ID: [id number] Room: Gender: M Hr Consultant: [id number]: 1970 Requested By: DARRION Cho Number: [id number] Reading MD: Rene Patterson MeasurementsIntervals [place] Rate: 61 P: 72PR: 152 QRS: 55QRSD: 106 T: 63QT: 398 QTc: 400 Interpretive StatementsSINUS RHYTHMPOSSIBLE RIGHT VENTRICULAR CONDUCTION DELAY [RSR (QR) IN V1/V2]Electronically Signed On 01-22-2022 8:30:45 CDT by Rene Valle Uxsgpc01 Lead [id number] 15:46:1012 LEAD EKG FOR [facility] Test Date: [id number] Name: DORA JOSEPH Department: 5ECIPatient ID: [id number] Room: Gender: M Hr Consultant: [id number]: 1970 Requested By: DARRION Cho Number: [id number] Reading MD: Rene Patterson MeasurementsIntervals [place] Rate: 61 P: 72PR : 152 QRS: 55QRSD: 106 T: 63QT: 398 QTc: 400 Interpretive StatementsSINUS RHYTHMPOSSIBLE RIGHT VENTRICULAR CONDUCTION DELAY [RSR (QR) IN V1/V2]Electronically Signed On 01-22-2022 8:30:45 CDT by Rene Valle Qtsuyo81 Lead [id number] 15:46:1012 LEAD EKG FOR [facility] Test Date: 3793-90-01Rjd Name: DORA JOSEPH Department: 5ECIPatient ID: [id number] Room: Gender: M Hr Consultant: [id number]: 1970 Requested By: DARRION Cho Number: [id number] Reading MD: Rene Patterson MeasurementsIntervals [place] Rate: 61 P: 72PR: 152 QRS: 55QRSD: 106 T: 63QT: 398 QTc: 400 Interpretive StatementsSINUS RHYTHMPOSSIBLE RIGHT VENTRICULAR CONDUCTION DELAY [RSR (QR) IN V1/V2]Electronically Signed On 01-22-2022 8:30:45 CDT by Rene Valle Abmehn16 Lead [id number] 15:46:1012 LEAD EKG FOR [facility] Test Date: [id number] Name: DORA JOSEPH Department: 5ECIPatient ID: [id number] Room: Gender: M Hr Consultant: [id number]: 1970 Requested By: DARRION Cho Number: [id number] Reading MD: Rene Patterson MeasurementsIntervals [place] Rate: 61 P: 72PR: 152 QRS: 55QRSD: 106 T: 63QT: 398 QTc: 400 Interpretive StatementsSINUS RHYTHMPOSSIBLE RIGHT VENT RICULAR CONDUCTION DELAY [RSR (QR) IN V1/V2]Electronically Signed On 01-22-2022 8:30:45 CDT by [facility] 1+2 Ab+HIV1 p24 Ag SerPl Ql [place] 2022-01-18 07:02:58 Test Item Value Reference Range Interpretation Comments HIV 1+2 Ab+HIV1 p24 Ag SerPl Ql [place] NEGATIVE Negative (test code = 65799-5) [id number] 21:23:2512 LEAD EKG FOR [facility] Test Date: 2749-02-81Ddb Name: DORA JOSEPH Department: 5520Patient ID: [id number] Room: 6E33Zywsqu: Hr Consultant: : 1970 Requested By: KARIN BASSETT AOrder Number: [id number] Reading MD: Chiara Calles MeasurementsIntervals [place] Rate: 72 P: 90PR:157 QRS: 87QRSD: 105 T: 90QT: 360 QTc: 384 Interpretive StatementsSINUS RHYTHMPOSSIBLE RIGHT VENTRICULAR CONDUCTION DELAY [RSR (QR) IN V1/V2]EARLY REPOLARIZATION [ST ELEVATION WITH NORMALLY INFLECTED T- WAVE]Electronically Signed On 01-17-2022 13:02:30 CDT by [place] 18209022-05-26 21:23:2512 LEAD EKG FOR [facility] Test Date: 9592-99-37Jrt Name: DORA JOSEPH Department: 5520Patient ID: [id number] Room: 8O86Voyunk: M Hr Consultant: : 1970 Requested By: JESSICA AOrder Number: [id number] Reading MD: Chiara Calles MeasurementsIntervals [place] Rate: 72 P: 90PR: 157 QRS: 87QRSD: 105 T: 90QT: 360 QTc: 384 Interpretive StatementsSINUS RHYTHMPOSSIBLE RIGHT VENTRICULAR CONDUCTION DELAY [RSR (QR) IN V1/V2]EARLY REPOLARIZATION [ST ELEVATION WITH NORMALLY INFLECTEDT- WAVE]Electronically Signed On 01-17-2022 13:02:30 CDT by [place] 18209022-05-26 21:23:2512 LEAD EKG FOR [facility] Test Date: 3461-94-59Vtn Name: DORA PAEZRY Department: 5520Patient ID: [id number] Room: 1G47Ljgati: M Hr Consultant: : 1970 Requested By: KARIN BASSETT AOrder Number: [id number] Reading MD: Chiara Calles MeasurementsIntervals [place] Rate: 72 P: 90PR:157 QRS: 87QRSD: 105 T: 90QT: 360 QTc: 384 Interpretive StatementsSINUS RHYTHMPOSSIBLE RIGHT VENTRICULAR CONDUCTION DELAY [RSR (QR) IN V1/V2]EARLY REPOLARIZATION [ST ELEVATION WITH NORMALLY INFLECTED T- WAVE]Electronically Signed On 01-17-2022 13:02:30 CDT by [facility] [place] [id number] 21:23:2512 LEAD EKG FOR [facility] Test Date: [id number] Name: DORA JOSEPH Department: 5520Patient ID: [id number] Room: 6P37Exkhoa: Hr Consultant: : 1970 Requested By: KARIN BASSETT AOrder Number: [id number] Reading MD: Chiara Calles MeasurementsIntervals [place] Rate: 72 P: 90PR:157 QRS: 87QRSD: 105 T: 90QT: 360 QTc: 384 Interpretive StatementsSINUS RHYTHMPOSSIBLE RIGHT VENTRICULAR CONDUCTION DELAY [RSR (QR) IN V1/V2]EARLY REPOLARIZATION [ST ELEVATION WITH NORMALLY INFLECTED T- WAVE]Electronically Signed On 01-17-2022 13:02:30 [facility]chn[facility]olutionsThree [facility] HospitalIwcoeoTFZ9561-33-25 21:23:2512 LEAD EKG FOR [facility] Test Date: [id number] Name: DORA JOSEPH Department: 5520Patient ID: [id number] Room: 2V10Lhkium: M Hr Consultant: : 1970 Requested By: KARIN BASSETT AOrder Number: [id number] Reading : Chiara Calles MeasurementsIntervals [place] Rate: 72 P: 90PR:157 QRS: 87QRSD: 105 T: 90QT: 360 QTc: 384 Interpretive StatementsSINUS RHYTHMPOSSIBLE RIGHT VENTRICULAR CONDUCTION DELAY [RSR (QR) IN V1/V2]EARLY REPOLARIZATION [ST ELEVATION WITH NORMALLY INFLECTED T- WAVE]Electronically Signed On 01-17-2022 13:02:30 CDT by [facility] [id number] 21:23:2512 LEAD EKG FOR [facility] Test Date: [id number] Name: DORA JOSEPH Department: 5520Patient ID: [id number] Room: 9L95Afwsfp: M Hr Consultant: : 1970 Requested By: KARIN BASSETT AOrder Number: [id number] Reading MD: Chiara Calles MeasurementsIntervals [place] Rate: 72 P: 90PR: 157 QRS: 87QRSD: 105 T: 90QT: 360 QTc: 384 Interpretive StatementsSINUS RHYTHMPOSSIBLE RIGHT VENTRICULAR CONDUCTION DELAY [RSR (QR) IN V1/V2]EARLY REPOLARIZATION [ST ELEVATION WITH NORMALLY INFLECTED T-W AVE]Electronically Signed On 01-17-2022 13:02:30 CDT by [facility] CausesThree Rivers HospitalNcnobrFLD1773-23-73 21:23:2512 LEAD EKG FOR [facility] Test Date: [id number] Name: DORA JOSEPH Department: 5520Patient ID: [id number] Room: 7A36Igotme: M Hr Consultant: : 1970 Requested By: KARIN BASSETT AOrder Number: [id number] Reading MD: Chiara Calles MeasurementsIntervals [place] Rate: 72 P: 90PR:157 QRS: 87QRSD: 105 T: 90QT: 360 QTc: 384 Interpretive StatementsSINUS RHYTHMPOSSIBLE RIGHT VENTRICULAR CONDUCTION DELAY [RSR (QR) IN V1/V2]EARLY REPOLARIZATION [ST ELEVATION WITH NORMALLY INFLECTED T- WAVE]Electronically Signed On 01-17-2022 13:02:30 CDT by [facility]2d2cT[facility] [id number] 21:23:2512 LEAD EKG FOR [facility] Test Date: [id number] Name: DORA JOSEPH Department: 5520Patient ID: [id number] Room: 8D33Umrcdd: M Hr Consultant: : 1970 Requested By: JESSICA AOrder Number: [id number] Reading MD: Chiara Calles MeasurementsIntervals [place] Rate: 72 P: 90PR:157 QRS: 87QRSD: 105 T: 90QT: 360 QTc: 384 Interpretive StatementsSINUS RHYTHMPOSSIBLE RIGHT VENTRICULAR CONDUCTION DELAY [RSR (QR) IN V1/V2]EARLY REPOLARIZATION [ST ELEVATION WITH NORMALLY INFLECTED T- WAVE]Electronically Signed On 01-17-2022 13:02:30 CDT by [facility] [id number] 21:23:2512 LEAD EKG FOR [facility] Test Date: [id number] Name: DORA PAEZRY Department: 5520Patient ID: [id number] Room: 1H07Xwnpoh: M Hr Consultant: : 1970 Requested By: KARIN BASSETT AOrder Number: [id number] Reading MD: Chiara Calles MeasurementsIntervals [place] Rate: 72 P: 90PR:157 QRS: 87QRSD: 105 T: 90QT: 360 QTc: 384 Interpretive StatementsSINUS RHYTHMPOSSIBLE RIGHT VENTRICULAR CONDUCTION DELAY [RSR (QR) IN V1/V2]EARLY REPOLARIZATION [ST ELEVATION WITH NORMALLY INFLECTED T- WAVE]Electronically Signed On 01-17-2022 13:02:30 CDT by [facility] Laboratoriesbakari2d2cT[place] [id number] 21:23:2512 LEAD EKG FOR [facility] Test Date: [id number] Name: DORA JACOBSON Department: 5520Patient ID: [id number] Room: 0W69Vxhned: M Hr Consultant: : 1970 Requested By: KARIN BASSETT AOrder Number: [id number] Reading MD: Chiara Calles MeasurementsIntervals [place] Rate: 72 P: 90PR: 157 QRS: 87QRSD: 105 T: 90QT: 360 QTc: 384 Interpretive StatementsSINUS RHYTHMPOSSIBLE RIGHT VENTRICULAR CONDUCTION DELAY [RSR (QR) IN V1/V2]EARLY REPOLARIZATION [ST ELEVATION WITH NORMALLY INFLECTED T- WAVE]Electronically Signed On 01-17-2022 13:02:30 CD[facility] ORF1ab Resp Ql OLENA+scrld5847-72-00 19:57:49 Test Item Value Reference Range Interpretation Comments Hospitalized? (test No code = 13776-2) ICU? (test code = No 10229-0) Symptomatic as No defined by CDC? (test code = 93117-0) Employed in No Healthcare? (test code = 76970-8) Resident in a No congregate care setting (including nursing homes, residential care for people with intellectual and developmental disabilities, psychiatric treatment facilities, group homes, board and care homes, homeless senior living, foster care or other): (test code = 98134-4) SARS-CoV-2 ORF1ab NOT DETECTED Not Detected INTERPRETA TION: No Resp Ql OLENA+probe detectable levels of (test code = SARS-CoV-2 69245-0) Coronavirus (COVID-19) were present in this patient's [...] SARS-CoV-2 mole cular diagnostic assa y utilizes Community Health Representative Mediated Amplification ( TMA) technology to r apidly detect the SARS -CoV-2 (COVID-19) viru s from respiratory adriana ples. In accordance with\\XC2A0\\the FDA's guidance docume nt "Policy for Diagnostic Test s for Coronavirus Disease-2019 du ring the Public Heal th Emergency", ginger s test was developed, and its performance characteristics were verified by the [facility] molecular diagn ostics laboratory and is authorized for clinical diagno stic use. \\XC2A0\\Thi s laboratory is certified under the Clinical Labora tory Improvement Amendments (CLI A) as qualified to pe rform high complexity clinical labora tory testing. [facility] CREATININE POC docked [id number] 13:57:55 Test Item Value Reference Range Interpretation Comments Creatinine POC (test 2.4 mg/dL 0.6-1.3 H Physici an Notified code = 81974435) eGFR If non- Am 30 See_Comment L [Aut omated message] (test code = 91811486) The s ystem which generated this result transmit dain reference range : >=90 mL/min/1.7 3 m2. The reference r meredith was not used to interpret this result as normal/abnormal . eGFR If Am (test 35 See_Comment L [A utomated message] code = 40351186) The system which generated this result transmit dain reference range : >=90 mL/min/1.7 3 m2. The reference r meredith was not used to interpret this result as normal/abnormal . Lab Interpretation (test Abnormal code = 55782-5) [facility] CREATININE POC docked [id number] 13:57:55 Test Item Value Reference Range Interpretation Comments Creatinine POC (test 2.4 mg/dL 0.6-1.3 H Physici an Notified code = 59948995) eGFR If non- Am 30 See_Comment L [Aut omated message] (test code = 98629084) The s ystem which generated this result transmit dain reference range : >=90 mL/min/1.7 3 m2. The reference r meredith was not used to interpret this result as normal/abnormal . eGFR If Am (test 35 See_Comment L [A utomated message] code = 95228478) The system which generated this result transmit dain reference range : >=90 mL/min/1.7 3 m2. The reference r meredith was not used to interpret this result as normal/abnormal . Lab Interpretation (test Abnormal code = 01789-9) [facility] CREATININE POC docked [id number] 13:57:55 Test Item Value Reference Range Interpretation Comments Creatinine POC (test 2.4 mg/dL 0.6-1.3 H Physici an Notified code = 16151882) eGFR If non- Am 30 See_Comment L [Aut omated message] (test code = 79439020) The s ystem which generated this result transmit dain reference range : >=90 mL/min/1.7 3 m2. The reference r meredith was not used to interpret this result as normal/abnormal . eGFR If Am (test 35 See_Comment L [A utomated message] code = 47366930) The system which generated this result transmit dain reference range : >=90 mL/min/1.7 3 m2. The reference r meredith was not used to interpret this result as normal/abnormal . Lab Interpretation (test Abnormal code = 90202-6) [facility] [id number] 13:57:55 Test Item Value Reference Range Interpretation Comments Creatinine POC (test 2.4 mg/dL 0.6-1.3 H Physici an Notified code = 70193317) eGFR If non- Am 30 See_Comment L [Aut omated message] (test code = 45520011) The s ystem which generated this result transmit dain reference range : >=90 mL/min/1.7 3 m2. The reference r meredith was not used to interpret this result as normal/abnormal . eGFR If Am (test 35 See_Comment L [A utomated message] code = 94776854) The system which generated this result transmit dain reference range : >=90 mL/min/1.7 3 m2. The reference r meredith was not used to interpret this result as normal/abnormal . Lab Interpretation (test Abnormal code = 52738-8) [facility] [id number] 13:57:55 Test Item Value Reference Range Interpretation Comments Creatinine POC (test 2.4 mg/dL 0.6-1.3 H Physici an Notified code = 66960866) eGFR If non- Am 30 See_Comment L [Aut omated message] (test code = 84125927) The s ystem which generated this result transmit dain reference range : >=90 mL/min/1.7 3 m2. The reference r meredith was not used to interpret this result as normal/abnormal . eGFR If Am (test 35 See_Comment L [A utomated message] code = 63751225) The system which generated this result transmit dain reference range : >=90 mL/min/1.7 3 m2. The reference r meredith was not used to interpret this result as normal/abnormal . Lab Interpretation (test Abnormal code = 87118-4) [facility] [id number] 13:57:55 Test Item Value Reference Range Interpretation Comments Creatinine POC (test 2.4 mg/dL 0.6-1.3 H Physici an Notified code = 68850488) eGFR If non- Am 30 See_Comment L [Aut omated message] (test code = 63059300) The s ystem which generated this result transmit dain reference range : >=90 mL/min/1.7 3 m2. The reference r meredith was not used to interpret this result as normal/abnormal . eGFR If Am (test 35 See_Comment L [A utomated message] code = 00446182) The system which generated this result transmit dain reference range : >=90 mL/min/1.7 3 m2. The reference r meredith was not used to interpret this result as normal/abnormal . Lab Interpretation (test Abnormal code = 28152-0) [facility] CREATININE POC docked [id number] 13:57:55 Test Item Value Reference Range Interpretation Comments Creatinine POC (test 2.4 mg/dL 0.6-1.3 H Physici an Notified code = 02384164) eGFR If non- Am 30 See_Comment L [Aut omated message] (test code = 75341816) The s ystem which generated this result transmit dain reference range : >=90 mL/min/1.7 3 m2. The reference r meredith was not used to interpret this result as normal/abnormal . eGFR If Am (test 35 See_Comment L [A utomated message] code = 73365497) The system which generated this result transmit dain reference range : >=90 mL/min/1.7 3 m2. The reference r meredith was not used to interpret this result as normal/abnormal . Lab Interpretation (test Abnormal code = 25368-2) [facility] CREATININE POC docked [id number] 13:57:55 Test Item Value Reference Range Interpretation Comments Creatinine POC (test 2.4 mg/dL 0.6-1.3 H Physici an Notified code = 48777331) eGFR If non- Am 30 See_Comment L [Aut omated message] (test code = 66412813) The s ystem which generated this result transmit dain reference range : >=90 mL/min/1.7 3 m2. The reference r meredith was not used to interpret this result as normal/abnormal . eGFR If Am (test 35 See_Comment L [A utomated message] code = 31117452) The system which generated this result transmit dain reference range : >=90 mL/min/1.7 3 m2. The reference r meredith was not used to interpret this result as normal/abnormal . Lab Interpretation (test Abnormal code = 15487-3) [facility] CREATININE POC docked [id number] 13:57:55 Test Item Value Reference Range Interpretation Comments Creatinine POC (test 2.4 mg/dL 0.6-1.3 H Physici an Notified code = 08095266) eGFR If non- Am 30 See_Comment L [Aut omated message] (test code = 59394795) The s ystem which generated this result transmit dain reference range : >=90 mL/min/1.7 3 m2. The reference r meredith was not used to interpret this result as normal/abnormal . eGFR If Am (test 35 See_Comment L [A utomated message] code = 62301916) The system which generated this result transmit dain reference range : >=90 mL/min/1.7 3 m2. The reference r meredith was not used to interpret this result as normal/abnormal . Lab Interpretation (test Abnormal code = 52108-1) [facility] CREATININE POC docked [id number] 13:57:55 Test Item Value Reference Range Interpretation Comments Creatinine POC (test 2.4 mg/dL 0.6-1.3 H Physici an Notified code = 67134724) eGFR If non- Am 30 See_Comment L [Aut omated message] (test code = 83063478) The s ystem which generated this result transmit dain reference range : >=90 mL/min/1.7 3 m2. The reference r meredith was not used to interpret this result as normal/abnormal . eGFR If Am (test 35 See_Comment L [A utomated message] code = 77920149) The system which generated this result transmit dain reference range : >=90 mL/min/1.7 3 m2. The reference r meredith was not used to interpret this result as normal/abnormal . Lab Interpretation (test Abnormal code = 49569-2) [facility] [id number] 13:48:46 Test Item Value Reference Range Interpretation Comments Sodium POC (test code = 126 mmol/L 136-145 L 90732494) Potassium POC (test code 4.4 mmol/L 3.5-5.1 = 29848730) Chloride POC (test code 100 mmol/L 98-107 = 77080792) TCO2 POC (test code = 17 mmol/L 21-32 L Physic aylin Notified 43234467) Urea Nitrogen POC (test 36 mg/dL 7-18 H code = 81014824) Glucose POC (test code = 114 mg/dL 74-106 H 98344006) Hemoglobin POC (test 11.9 g/dL 12-16 L code = 92578754) Hematocrit POC (test 35.0 % 37.0-47.0 L code = 71942480) Lab Interpretation (test Abnormal code = 68085-9) [facility] [id number] 13:48:46 Test Item Value Reference Range Interpretation Comments Sodium POC (test code = 126 mmol/L 136-145 L 64591380) Potassium POC (test code 4.4 mmol/L 3.5-5.1 = 52334649) Chloride POC (test code 100 mmol/L 98-107 = 47371410) TCO2 POC (test code = 17 mmol/L 21-32 L Physic aylin Notified 01408505) Urea Nitrogen POC (test 36 mg/dL 7-18 H code = 04566336) Glucose POC (test code = 114 mg/dL 74-106 H 83537205) Hemoglobin POC (test 11.9 g/dL 12-16 L code = 06802958) Hematocrit POC (test 35.0 % 37.0-47.0 L code = 42546068) Lab Interpretation (test Abnormal code = 27046-4) [facility] [id number] 13:48:46 Test Item Value Reference Range Interpretation Comments Sodium POC (test code = 126 mmol/L 136-145 L 50350375) Potassium POC (test code 4.4 mmol/L 3.5-5.1 = 29309221) Chloride POC (test code 100 mmol/L 98-107 = 69101340) TCO2 POC (test code = 17 mmol/L 21-32 L Physic aylin Notified 36607525) Urea Nitrogen POC (test 36 mg/dL 7-18 H code = 02811568) Glucose POC (test code = 114 mg/dL 74-106 H 63446589) Hemoglobin POC (test 11.9 g/dL 12-16 L code = 07022369) Hematocrit POC (test 35.0 % 37.0-47.0 L code = 40626876) Lab Interpretation (test Abnormal code = 69210-0) [facility] [id number] 13:48:46 Test Item Value Reference Range Interpretation Comments Sodium POC (test code = 126 mmol/L 136-145 L 35945947) Potassium POC (test code 4.4 mmol/L 3.5-5.1 = 37731235) Chloride POC (test code 100 mmol/L 98-107 = 63014063) TCO2 POC (test code = 17 mmol/L 21-32 L Physic aylin Notified 13755138) Urea Nitrogen POC (test 36 mg/dL 7-18 H code = 53327836) Glucose POC (test code = 114 mg/dL 74-106 H 47680122) Hemoglobin POC (test 11.9 g/dL 12-16 L code = 87612969) Hematocrit POC (test 35.0 % 37.0-47.0 L code = 64593207) Lab Interpretation (test Abnormal code = 85177-7) [facility] [id number] 13:48:46 Test Item Value Reference Range Interpretation Comments Sodium POC (test code = 126 mmol/L 136-145 L 49194391) Potassium POC (test code 4.4 mmol/L 3.5-5.1 = 05731023) Chloride POC (test code 100 mmol/L 98-107 = 94547633) TCO2 POC (test code = 17 mmol/L 21-32 L Physic aylin Notified 73050449) Urea Nitrogen POC (test 36 mg/dL 7-18 H code = 70025090) Glucose POC (test code = 114 mg/dL 74-106 H 02498529) Hemoglobin POC (test 11.9 g/dL 12-16 L code = 23371184) Hematocrit POC (test 35.0 % 37.0-47.0 L code = 08844758) Lab Interpretation (test Abnormal code = 21642-1) [facility] [id number] 13:48:46 Test Item Value Reference Range Interpretation Comments Sodium POC (test code = 126 mmol/L 136-145 L 07824831) Potassium POC (test code 4.4 mmol/L 3.5-5.1 = 72321119) Chloride POC (test code 100 mmol/L 98-107 = 34482238) TCO2 POC (test code = 17 mmol/L 21-32 L Physic aylin Notified 71031916) Urea Nitrogen POC (test 36 mg/dL 7-18 H code = 29204999) Glucose POC (test code = 114 mg/dL 74-106 H 18538736) Hemoglobin POC (test 11.9 g/dL 12-16 L code = 83050753) Hematocrit POC (test 35.0 % 37.0-47.0 L code = 67502004) Lab Interpretation (test Abnormal code = 14376-3) [facility] [id number] 13:48:46 Test Item Value Reference Range Interpretation Comments Sodium POC (test code = 126 mmol/L 136-145 L 29399216) Potassium POC (test code 4.4 mmol/L 3.5-5.1 = 53356534) Chloride POC (test code 100 mmol/L 98-107 = 31839886) TCO2 POC (test code = 17 mmol/L 21-32 L Physic aylin Notified 93883157) Urea Nitrogen POC (test 36 mg/dL 7-18 H code = 17003486) Glucose POC (test code = 114 mg/dL 74-106 H 47528683) Hemoglobin POC (test 11.9 g/dL 12-16 L code = 88892406) Hematocrit POC (test 35.0 % 37.0-47.0 L code = 56881574) Lab Interpretation (test Abnormal code = 92398-3) [facility] [id number] 13:48:46 Test Item Value Reference Range Interpretation Comments Sodium POC (test code = 126 mmol/L 136-145 L 43726482) Potassium POC (test code 4.4 mmol/L 3.5-5.1 = 37445500) Chloride POC (test code 100 mmol/L 98-107 = 92866298) TCO2 POC (test code = 17 mmol/L 21-32 L Physic aylin Notified 34646479) Urea Nitrogen POC (test 36 mg/dL 7-18 H code = 13605956) Glucose POC (test code = 114 mg/dL 74-106 H 79261472) Hemoglobin POC (test 11.9 g/dL 12-16 L code = 61574464) Hematocrit POC (test 35.0 % 37.0-47.0 L code = 63737526) Lab Interpretation (test Abnormal code = 23564-8) [facility] [id number] 13:48:46 Test Item Value Reference Range Interpretation Comments Sodium POC (test code = 126 mmol/L 136-145 L 16153456) Potassium POC (test code 4.4 mmol/L 3.5-5.1 = 90947367) Chloride POC (test code 100 mmol/L 98-107 = 57602255) TCO2 POC (test code = 17 mmol/L 21-32 L Physic aylin Notified 86828116) Urea Nitrogen POC (test 36 mg/dL 7-18 H code = 41883962) Glucose POC (test code = 114 mg/dL 74-106 H 40320607) Hemoglobin POC (test 11.9 g/dL 12-16 L code = 43378879) Hematocrit POC (test 35.0 % 37.0-47.0 L code = 53438487) Lab Interpretation (test Abnormal code = 93648-4) [facility] BMP POC docked rqdjcl6558-66-49 13:48:46 Test Item Value Reference Range Interpretation Comments Sodium POC (test code = 126 mmol/L 136-145 L 15783772) Potassium POC (test code 4.4 mmol/L 3.5-5.1 = 19324046) Chloride POC (test code 100 mmol/L 98-107 = 76081675) TCO2 POC (test code = 17 mmol/L 21-32 L Physic aylin Notified 17929302) Urea Nitrogen POC (test 36 mg/dL 7-18 H code = 20431905) Glucose POC (test code = 114 mg/dL 74-106 H 70819445) Hemoglobin POC (test 11.9 g/dL 12-16 L code = 68445276) Hematocrit POC (test 35.0 % 37.0-47.0 L code = 55415307) Lab Interpretation (test Abnormal code = 98637-8) [facility]-CoV-2 ORF1ab Resp Ql OLENA+zegig1070-26-03 20:25:16 Test Item Value Reference Range Interpretation Comments Hospitalized? (test No code = 83444-1) ICU? (test code = No 61766-7) Symptomatic as No defined by CDC? (test code = 90739-5) Employed in No Healthcare? (test code = 37866-2) Resident in a No congregate care setting (including nursing homes, residential care for people with intellectual and developmental disabilities, psychiatric treatment facilities, group homes, board and care homes, homeless senior living, foster care or other): (test code = 77398-2) SARS-CoV-2 ORF1ab NOT DETECTED Not Detected INTERPRETA TION: No Resp Ql OLENA+probe detectable levels of (test code = SARS-CoV-2 75459-5) Coronavirus (COVID-19) were present in this patient's [...] SARS-CoV-2 mole cular diagnostic assa y utilizes Community Health Representative Mediated Amplification ( TMA) technology to r apidly detect the SARS -CoV-2 (COVID-19) viru s from respiratory adriana ples. In accordance with\\XC2A0\\the FDA's guidance docume nt "Policy for Diagnostic Test s for Coronavirus Disease-2019 du ring the Public Heal Emergency", thi s test was developed, and its performance characteristics were verified by the [facility] molecular diagn ostics laboratory and is authorized for clinical diagno stic use. \\XC2A0\\Thi s laboratory is certified under the Clinical Labora tory Improvement Amendments (CLI A) as qualified to pe rform high complexity clinical labora tory testing. [facility] POC docked worxwe9820-13-63 11:16:15 Test Item Value Reference Range Interpretation Comments pH, Pankaj POC (test code 7.32 7.33-7.43 L = 25144601) pCO2,Pankaj POC (test code 31.0 See_Comment L [Au tomated = 69724340) message] The sy stem which generated this result transmitted reference range : 38 - 50 mmHg. The reference range was not used to interpret this result as normal/abnormal . PO2, Venous POC (BKR) 44 See_Comment L [Auto mated (test code = 04267505) messa ge] The system which generated this result transmitted reference range : 50 - 75 mm Hg. The reference range was not used to interpret this result as normal/abnormal . Ionized Calcium POC 1.24 mmol/L 1.15-1.29 (test code = 87152270) HCO3, Pankaj POC (test 16 mmol/L 22-26 L code = 09835566) TCO2 POC (test code = 17 mmol/L 21-32 L 73851340) Base Deficit, Pankaj POC -9 (test code = 89841779) Sample Type (test code IVFLORENCE Physi erik Notified = 32782630) % Sat, Pankaj POC (test 77 % code = 88756466) Lab Interpretation Abnormal (test code = 90576-1) [facility]BG POC docked rimtfc1521-77-50 11:16:15 Test Item Value Reference Range Interpretation Comments pH, Pankaj POC (test code 7.32 7.33-7.43 L = 88346188) pCO2,Pankaj POC (test code 31.0 See_Comment L [Au tomated = 26018651) message] The sy stem which generated this result transmitted reference range : 38 - 50 mmHg. The reference range was not used to interpret this result as normal/abnormal . PO2, Venous POC (BKR) 44 See_Comment L [Auto mated (test code = 11247050) messa ge] The system which generated this result transmitted reference range : 50 - 75 mm Hg. The reference range was not used to interpret this result as normal/abnormal . Ionized Calcium POC 1.24 mmol/L 1.15-1.29 (test code = 06272478) HCO3, Pankaj POC (test 16 mmol/L 22-26 L code = 94211355) TCO2 POC (test code = 17 mmol/L 21-32 L 05352345) Base Deficit, Pankaj POC -9 (test code = 90871653) Sample Type (test code IVFLORENCE Physi erik Notified = 52712060) % Sat, Pankaj POC (test 77 % code = 04227173) Lab Interpretation Abnormal (test code = 15505-1) [facility] VBG POC docked [id number] 11:16:15 Test Item Value Reference Range Interpretation Comments pH, Pankaj POC (test code 7.32 7.33-7.43 L = 23684976) pCO2,Pankaj POC (test code 31.0 See_Comment L [Au tomated = 60049813) message] The sy stem which generated this result transmitted reference range : 38 - 50 mmHg. The reference range was not used to interpret this result as normal/abnormal . PO2, Venous POC (BKR) 44 See_Comment L [Auto mated (test code = 92358604) [employer]Lemons] The system which generated this result transmitted reference range : 50 - 75 mm Hg. The reference range was not used to interpret this result as normal/abnormal . Ionized Calcium POC 1.24 mmol/L 1.15-1.29 (test code = 83473802) HCO3, Pankaj POC (test 16 mmol/L 22-26 L code = 23209752) TCO2 POC (test code = 17 mmol/L 21-32 L 97803563) Base Deficit, Pankaj POC -9 (test code = 63869376) Sample Type (test code STEPAN Physi erik Notified = 46588438) % Sat, Pankaj POC (test 77 % code = 72959771) Lab Interpretation Abnormal (test code = 56348-8) [facility] VBG POC docked [id number] 11:16:15 Test Item Value Reference Range Interpretation Comments pH, Pankaj POC (test code 7.32 7.33-7.43 L = 50777465) pCO2,Pankaj POC (test code 31.0 See_Comment L [Au tomated = 80993746) message] The sy stem which generated this result transmitted reference range : 38 - 50 mmHg. The reference range was not used to interpret this result as normal/abnormal . PO2, Venous POC (BKR) 44 See_Comment L [Auto mated (test code = 46881734) Chaina Medopad] The system which generated this result transmitted reference range : 50 - 75 mm Hg. The reference range was not used to interpret this result as normal/abnormal . Ionized Calcium POC 1.24 mmol/L 1.15-1.29 (test code = 14430666) HCO3, Pankaj POC (test 16 mmol/L 22-26 L code = 80865409) TCO2 POC (test code = 17 mmol/L 21-32 L 77987854) Base Deficit, Pankaj POC -9 (test code = 00127789) Sample Type (test code IVEN Physi erik Notified = 58445955) % Sat, Pankaj POC (test 77 % code = 81870543) Lab Interpretation Abnormal (test code = 73240-3) [facility] VBG POC docked [id number] 11:16:15 Test Item Value Reference Range Interpretation Comments pH, Pankaj POC (test code 7.32 7.33-7.43 L = 06171554) pCO2,Apnkaj POC (test code 31.0 See_Comment L [Au tomated = 74091716) message] The sy stem which generated this result transmitted reference range : 38 - 50 mmHg. The reference range was not used to interpret this result as normal/abnormal . PO2, Venous POC (BKR) 44 See_Comment L [Auto mated (test code = 05911374) Chaina [employer]] The system which generated this result transmitted reference range : 50 - 75 mm Hg. The reference range was not used to interpret this result as normal/abnormal . Ionized Calcium POC 1.24 mmol/L 1.15-1.29 (test code = 41515396) HCO3, Pankaj POC (test 16 mmol/L 22-26 L code = 68349346) TCO2 POC (test code = 17 mmol/L 21-32 L 46683657) Base Deficit, Pankaj POC -9 (test code = 12828052) Sample Type (test code IVEN Physi erik Notified = 96992508) % Sat, Pankaj POC (test 77 % code = 70562190) Lab Interpretation Abnormal (test code = 63471-1) [facility] VBG POC docked oyymlw8311-63-63 11:16:15 Test Item Value Reference Range Interpretation Comments pH, Pankaj POC (test code 7.32 7.33-7.43 L = 11269790) pCO2,Pankaj POC (test code 31.0 See_Comment L [Au tomated = 99135619) message] The sy stem which generated this result transmitted reference range : 38 - 50 mmHg. The reference range was not used to interpret this result as normal/abnormal . PO2, Venous POC (BKR) 44 See_Comment L [Auto mated (test code = 37636432) messa ge] The system which generated this result transmitted reference range : 50 - 75 mm Hg. The reference range was not used to interpret this result as normal/abnormal . Ionized Calcium POC 1.24 mmol/L 1.15-1.29 (test code = 60982292) HCO3, Pankaj POC (test 16 mmol/L 22-26 L code = 70310248) TCO2 POC (test code = 17 mmol/L 21-32 L 86953020) Base Deficit, Pankaj POC -9 (test code = 96157747) Sample Type (test code STEPAN Moeller cian Notified = 23417988) % Sat, Pankaj POC (test 77 % code = 05884480) Lab Interpretation Abnormal (test code = 14829-5) [facility] VBG POC docked [id number] 11:16:15 Test Item Value Reference Range Interpretation Comments pH, Pankaj POC (test code 7.32 7.33-7.43 L = 13031102) pCO2,Pankaj POC (test code 31.0 See_Comment L [Au tomated = 35121626) message] The sy stem which generated this result transmitted reference range : 38 - 50 mmHg. The reference range was not used to interpret this result as normal/abnormal . PO2, Venous POC (BKR) 44 See_Comment L [Auto mated (test code = 79983245) messa ge] The system which generated this result transmitted reference range : 50 - 75 mm Hg. The reference range was not used to interpret this result as normal/abnormal . Ionized Calcium POC 1.24 mmol/L 1.15-1.29 (test code = 31656785) HCO3, Pankaj POC (test 16 mmol/L 22-26 L code = 98114266) TCO2 POC (test code = 17 mmol/L 21-32 L 83354233) Base Deficit, Pankaj POC -9 (test code = 55369789) Sample Type (test code STEPAN valencia Notified = 89259530) % Sat, Pankaj POC (test 77 % code = 40651390) Lab Interpretation Abnormal (test code = 29625-1) [facility] VBG POC docked svicup9855-85-58 11:16:15 Test Item Value Reference Range Interpretation Comments pH, Pankaj POC (test code 7.32 7.33-7.43 L = 21046669) pCO2,Pankaj POC (test code 31.0 See_Comment L [Au tomated = 30410992) message] The sy stem which generated this result transmitted reference range : 38 - 50 mmHg. The reference range was not used to interpret this result as normal/abnormal . PO2, Venous POC (BKR) 44 See_Comment L [Auto mated (test code = 91103868) Chaina ge] The system which generated this result transmitted reference range : 50 - 75 mm Hg. The reference range was not used to interpret this result as normal/abnormal . Ionized Calcium POC 1.24 mmol/L 1.15-1.29 (test code = 41054174) HCO3, Pankaj POC (test 16 mmol/L 22-26 L code = 13046123) TCO2 POC (test code = 17 mmol/L 21-32 L 26685674) Base Deficit, Pankaj POC -9 (test code = 09569906) Sample Type (test code STEPAN valencia Notified = 17749083) % Sat, Pankaj POC (test 77 % code = 84085714) Lab Interpretation Abnormal (test code = 44326-3) [facility] VBG POC docked fvrdgk7576-75-02 11:16:15 Test Item Value Reference Range Interpretation Comments pH, Pankaj POC (test code 7.32 7.33-7.43 L = 96598576) pCO2,Pankaj POC (test code 31.0 See_Comment L [Au tomated = 20624449) message] The sy stem which generated this result transmitted reference range : 38 - 50 mmHg. The reference range was not used to interpret this result as normal/abnormal . PO2, Venous POC (BKR) 44 See_Comment L [Auto mated (test code = 19787109) [employer]] The system which generated this result transmitted reference range : 50 - 75 mm Hg. The reference range was not used to interpret this result as normal/abnormal . Ionized Calcium POC 1.24 mmol/L 1.15-1.29 (test code = 83121675) HCO3, Pankaj POC (test 16 mmol/L 22-26 L code = 67532203) TCO2 POC (test code = 17 mmol/L 21-32 L 01464796) Base Deficit, Pankaj POC -9 (test code = 54959010) Sample Type (test code IVFLORENCE Physi erik Notified = 11329792) % Sat, Pankaj POC (test 77 % code = 33119682) Lab Interpretation Abnormal (test code = 54857-7) [facility] VBG POC docked gblcxs2549-77-16 11:16:15 Test Item Value Reference Range Interpretation Comments pH, Pankaj POC (test code 7.32 7.33-7.43 L = 14809519) pCO2,Pankaj POC (test code 31.0 See_Comment L [Au tomated = 76784537) message] The sy stem which generated this result transmitted reference range : 38 - 50 mmHg. The reference range was not used to interpret this result as normal/abnormal . PO2, Venous POC (BKR) 44 See_Comment L [Auto mated (test code = 63668537) [employer]] The system which generated this result transmitted reference range : 50 - 75 mm Hg. The reference range was not used to interpret this result as normal/abnormal . Ionized Calcium POC 1.24 mmol/L 1.15-1.29 (test code = 96154833) HCO3, Pankaj POC (test 16 mmol/L 22-26 L code = 79433772) TCO2 POC (test code = 17 mmol/L 21-32 L 65785822) Base Deficit, Pankaj POC -9 (test code = 08397503) Sample Type (test code IVFLORENCE Physi erik Notified = 80378964) % Sat, Pankaj POC (test 77 % code = 87352222) Lab Interpretation Abnormal (test code = 33779-3) [place] [address] LEAD [id number] 20:59:5612 LEAD EKG FOR [facility] Test Date: 2859-80-83Oyt Name: DORA JOSEPH Department: 5520Patient ID: [id number] Room: Gender: M Hr Consultant: [id number]: 1970 Requested By: TANJA Garza Number: [id number] Reading MD: Chiara Calles MeasurementsIntervals [place] Rate: 75 P: 84PR: 153 QRS: 67QRSD: 104 T: 77QT: 344 QTc: 373 Interpretive StatementsSINUS RHYTHMPOSSIBLE RIGHT VENTRICULAR CONDUCTION DELAY [RSR (QR) IN V1/V2]Electronically Signed On 01-09-2022 8:27:19 CDT by [employer]12 LEAD [id number] 20:59:5612 LEAD EKG FOR [facility] Test Date: 4744-74-00Ofy Name: DORA JOSEPH Department: 5520Patient ID: [id number] Room: Gender: M Hr Consultant: [id number]: 1970 Requested By: TANJA Garza Number: [id number] Reading MD: Chiara Calles MeasurementsIntervals [place] Rate: 75 P: 84PR: 153 QRS: 67QRSD: 104 T: 77QT: 344 QTc: 373 Interpretive StatementsSINUS RHYTHMPOSSIBLE RIGHT VENT RICULAR CONDUCTION DELAY [RSR (QR) IN V1/V2]Electronically Signed On 01-09-2022 8:27:19 CDT by [employer] LEAD [id number] 20:59:5612 LEAD EKG FOR [facility] Test Date: 1131-66-44Oko Name: DORA JOSEPH Department: 5520Patient ID: [id number] Room: Gender: M Hr Consultant: [id number]: 1970 Requested By: TANJA Garza Number: [id number] Reading MD: Chiara Calles MeasurementsIntervals [place] Rate: 75 P: 84PR: 153 QRS: 67QRSD: 104 T: 77QT: 344 QTc: 373 Interpretive StatementsSINUS RHYTHMPOSSIBLE RIGHT VENTRICULAR CONDUCTION DELAY [RSR (QR) IN V1/V2]Electronically Signed On 01-09-2022 8:27:19 CDT by [employer] LEAD [id number] 20:59:5612 LEAD EKG FOR [facility] Test Date: 7002-51-38Mbb Name: DORA JOSEPH Department: 5520Patient ID: [id number] Room: Gender: M Hr Consultant: [id number]: 1970 Requested By: TANJA Garza Number: [id number] Reading MD: Chiara Calles MeasurementsIntervals [place] Rate: 75 P: 84P R: 153 QRS: 67QRSD: 104 T: 77QT: 344 QTc: 373 Interpretive StatementsSINUS RHYTHMPOSSIBLE RIGHT VENTRICULAR CONDUCTION DELAY [RSR (QR) IN V1/V2]Electronically Signed On 01-09-2022 8:27:19 CDT by [facility] Centerrobert Davis2d2cMcgehee HospitalInnSania12 LEAD [id number] 20:59:5612 LEAD EKG FOR [facility] Test Date: 3382-07-57Izv Name: DORA PAEZRY Department: 5520Patient ID: [id number] Room: Gender: M Hr Consultant: [id number]: 1970 Requested By: TANJA Garza Number: [id number] Reading MD: Chiara Calles MeasurementsIntervals [place] Rate: 75 P: 84PR: 153 QRS: 67QRSD: 104 T: 77QT: 344 QTc: 373 Interpretive StatementsSINUS RHYTHMPOSSIBLE RIGHT VENTRICULAR CONDUCTION DELAY [RSR (QR) IN V1/V2]Electronically Signed On 01-09-2022 8:27:19 CDT by [facility] CenterSuzetteTavernBrian Ville [address] LEAD [id number] 20:59:5612 LEAD EKG FOR [facility] Test Date: 0072-16-68Zlw Name: DORA JOSEPH Department: 5520Patient ID: [id number] Room: Gender: M Hr Consultant: [id number]: 1970 Requested By: TANJA Garza Number: [id number] Reading MD: Chiara Calles MeasurementsIntervals [place] Rate: 75 P: 84PR: 153 QRS: 67QRSD: 104 T: 77QT: 344 QTc: 373 Interpretive StatementsSINUS RHYTHMPOSSIBLE RIGHT VENTR ICULAR CONDUCTION DELAY [RSR (QR) IN V1/V2]Electronically Signed On 01-09-2022 8:27:19 CDT by [facility] Laboratoriesbakari2d2cCompaInnSania12 LEAD [id number] 20:59:5612 LEAD EKG FOR [facility] Test Date: 5739-35-94Dsu Name: DORA PAEZRY Department: 5520Patient ID: [id number] Room: Gender: M Hr Consultant: [id number]: 1970 Requested By: TANJA aGrza Number: [id number] Reading MD: Chiara Calles MeasurementsIntervals [place] Rate: 75 P: 84PR: 153 QRS: 67QRSD: 104 T: 77QT: 344 QTc: 373 Interpretive StatementsSINUS RHYTHMPOSSIBLE RIGHT VENTRICULAR CONDUCTION DELAY [RSR (QR) IN V1/V2]Electronically Signed On 01-09-2022 8:27:19 CDT by Chiara Davis2d2cCompaInnSania12 LEAD [id number] 20:59:5612 LEAD EKG FOR [facility] Test Date: 5285-84-95Avw Name: DORA PAEZRY Department: 5520Patient ID: [id number] Room: Gender: M Hr Consultant: [id number]: 1970 Requested By: TANJA Garza Number: [id number] Reading MD: Chiara Calles MeasurementsIntervals [place] Rate: 75 P: 84P R: 153 QRS: 67QRSD: 104 T: 77QT: 344 QTc: 373 Interpretive StatementsSINUS RHYTHMPOSSIBLE RIGHT VENTRICULAR CONDUCTION DELAY [RSR (QR) IN V1/V2]Electronically Signed On 01-09-2022 8:27:19 CDT by [facility] CenterrobertPhysicians Laboratoriesbakari2d2cMcgehee HospitalZeppelin Uqzrrx15 LEAD [id number] 20:59:5612 LEAD EKG FOR [facility] Test Date: 0750-14-16Myx Name: DORA PAEZRY Department: 5520Patient ID: [id number] Room: Gender: M Hr Consultant: [id number]: 1970 Requested By: TANJA Garza Number: [id number] Reading MD: Chiara Calles MeasurementsIntervals [place] Rate: 75 P: 84PR: 153 QRS: 67QRSD: 104 T: 77QT: 344 QTc: 373 Interpretive StatementsSINUS RHYTHMPOSSIBLE RIGHT VENTRICULAR CONDUCTION DELAY [RSR (QR) IN V1/V2]Electronically Signed On 01-09-2022 8:27:19 CDT by [facility]2d2cSt[facility]12 LEAD [id number] 20:59:5612 LEAD EKG FOR [facility] Test Date: 9472-12-79Iiw Name: DORA JOSEPH Department: 5520Patient ID: [id number] Room: Gender: Hr Consultant: [id number]: 1970 Requested By: TANJA Garza Number: [id number] Reading MD: Chiara Calles MeasurementsIntervals [place] Rate: 75 P: 84PR: 153 QRS: 67QRSD: 104 T: 77QT: 344 QTc: 373 Interpretive StatementsSINUS RHYTHMPOSSIBLE RIGHT VENT RICULAR CONDUCTION DELAY [RSR (QR) IN V1/V2]Electronically Signed On 01-09-2022 8:27:19 CDT by [facility] CenterCausesWayside [facility] W/AUTO [id number] 23:52:00 Test Item Value Reference Range Interpretation [...] = MX#) 0.8 k/mm3 0.1-0.8 N LIVER [id number] 20:04:00 Test Item Value Reference Range Interpretation Comments TOTAL PROTEIN (test code 6.7 GM/DL 5.0-8.0 N Per formed by = PROT) 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 [facility] ed Ctr ALBUMIN (test code [...] 67 UNITS/L 25-125 N LYNDSEY) BASIC METABOLIC [id number] 19:54:00 Test Item Value Reference Range Interpretation [...] POCGLU) 81 MG/DL - CT ABD PELVIS W/[id number] 00:00:00 [facility] SHANA LAKEName: MARIA ISABEL JOSEPH : 1970 Sex: M Name: MARIA ISABEL JOSEPH FSED : 1970 Age/S: 51 / M [address] [facility] Unit #: [id number] Loc: [place] [address] Phys: Raffaele Levi MD Acct: [id number] Dis Date: Status: PRE ER PHONE #: Exam Date: 09/23/20211999 FAX #: Reason: RUQ PAIN, VOMITING EXAMS: CPT CODE: [id number] CT ABD PELVIS W/CONT 02476 PROCEDURE INFORMATION: Exam: CT Abdomen And Pelvis With Contrast Exam date and time: 09/23/2021 7:51PM Age: 51 years old Clinical indication: Abdominal [...] Normal. No ductal dilation. Spleen: Spleen is normalsize. Mild splenic varices may be present. Adrenal [...] lymph nodes present. Urinary bladder: Bladder is partia lly distended with fluid. Reproductive: Unremarkable as visualized. Bones/joints: No suspicious osseous abnormality identified. IMPRESSION: 1. Nonspecific mild to moderate wall thickening of few left PAGE 1 Signed Report (CONTINUED) Name: MARIA ISABEL JOSEPH FSED : 1970 Age/S: 51 / M [address] [facility] Unit #: [id number] Loc: [place] [address] Phys: Raffaele Levi MD Acct: [id number] Dis Date: Status: PRE ER PHONE #: Exam Date: 09/23/20211999 FAX #: Reason: RUQ PAIN, VOMITING EXAMS: CPT CODE: [id number] CT ABD PELVIS W/CONT 98353 <Continued> abdominal small bowel loops may relate [...] (2049) PAGE 2 Signed Report COMPREHENSIVE METABOLIC [id number] 11:51:00 Test Item Value Reference Range Interpretation [...] Units/L 50.0-136.0 N code = ALKP) PROTHROMBIN [id number] 11:41:00 Test Item Value Reference Range Interpretation Comments PROTHROMBIN TIME 10.9 SECONDS 9.9-12.8 N PATIENT (test code = PTP) INTERNATIONAL NORMAL 0.9 0.89-1.14 N THE INR IS TO BE USED RATIO (test code = ONLY FOR MONITORING INR) ORAL ANTICOAGULANTTH ERAPY. 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 at [facility] BASIC METABOLIC [id number] 05:21:00 Test Item Value Reference Range Interpretation [...] (test code = POCGLU) 92 MG/DL GLUCOSE [id number] 05:19:00 Test Item Value Reference Range Interpretation Comments GLUCOSE BEDSIDE (test 51 MG/DL 70-110 L Perfor med by certified code = GLUBED) 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 at [facility] CBC W/AUTO [id number] 14:00:00 Test Item Value Reference Range Interpretation [...] MX#) 0.2 k/mm3 0.1-0.8 N CBC W/AUTO [id number] 00:07:00 Test Item Value Reference Range Interpretation [...] = LY#) 2.4 K/uL 1.0-3.8 N LIVER [id number] 16:14:00 Test Item Value Reference Range Interpretation Comments TOTAL PROTEIN (test code 7.5 GM/DL 5.0-8.0 N Per formed by = PROT) 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 [facility] ALBUMIN (test code = [...] 65 UNITS/L 25-125 N LYNDSEY) BASIC METABOLIC [id number] 16:07:00 Test Item Value Reference Range Interpretation [...] POCGLU) 96 MG/DL - XR CHEST 1 [id number] 00:00:00 [facility]SE[facility] : 1970 Sex: MFAX: Steve Urias MD [phone] [place]: [place] St: PRE Name: DORA JOSEPH FSED : 1970 Age/S: 51/M [address] [facility]. Unit #: [id number] Loc: [place] [address] Phys: Steve Urias MD Acct: [id number] Dis Date: Status: PRE ER PHONE #: Exam Date: 06/27/2021 154 FAX #: Reason: Abdominal Pain EXAMS: CPT CODE: [id number] XR CHEST 1 V 24589 PROCEDURE INFORMATION: Exam: XR Chest Exam date andtime: 06/27/2021 3:37 PM Age: 51 years old [...] diaphragm. No acute cardiopulmonary findings otherwise.. at 5284 Reported and signed by: Андрей Mar M.D. CC: Steve Urias MD Technologist: RT Alanna(R)(CT) Trnscrd Date/Time/By: 06/27/2021 (2236) : By: GarettJG42 Orig Print D/T: S: 06/27/2021 (3038) PAGE 1 Signed Report- CT ABD PELVIS [id number] 00:00:00 [facility] SHANA LAKEName: DORA JOSEPH : 1970 Sex: MName: DORA JOSEPH FSED : 1970 Age/S: 51 / M [address] [facility] Unit #: [id number] Loc: [place] [address] Phys: Steve Urias MD Acct: [id number] Dis Date: Status: REG ER PHONE #: Exam Date: 06/27/2021 1621 FAX #: Reason: pain in region of colostomy EXAMS: CPT CODE: [id number] CT ABD PELVIS W/CONT 42925 PROCEDURE INFORMATION: Exam: CT Abdomen And Pelvis With Contrast Exam date and time: 06/27/2021 4:14 PM Age: 51 years old Clinical indication: Abdominal pain; Generalized;Additional info: Pain in region of colostomy TECHNIQUE: [...] : 1970 Age/S: 51 / M [address] [facility] Unit #: [id number] Loc: [place] [address] Phys: Steve Urias MD Acct: [id number] Dis Date: Status: REG ER PHONE #: Exam Date: 06/27/2021 1625 FAX #: Reason: pain in region of colostomy EXAMS: CPT CODE: [id number] CT ABD PELVIS W/CONT 67799 <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 There is no evidence of associated intestinal obstruction. 2. No additional acute CT abnormalities of the abdomen or pelvis are identified. SL:131 at 1650 Reported and signed by: Marco Raman M.D. CC: Steve Urias MD Technologist:Yecenia Carbajal RT(R)(CT) CTDI: DLP: Trnscb Date/Time: 06/27/2021 (1649) [place] Orig Print D/T: S: 06/27/2021 (1649) PAGE 2 Signed ReportCBC W/AUTO [id number] 09:20:00 Test Item Value Reference Range Interpretation [...] (test code NO = MDIFF) CBC W/AUTO [id number] 08:59:00 Test Item Value Reference Range Interpretation [...] REQUIRED (test code = MDIFF) BASIC METABOLIC [id number] 08:21:00 Test Item Value Reference Range Interpretation [...] 8.4 mg/dL 8.0-10.5 N CA) BASIC METABOLIC [id number] 08:34:00 Test Item Value Reference Range Interpretation [...] 8.4 mg/dL 8.0-10.5 N CA) CBC W/AUTO [id number] 07:41:00 Test Item Value Reference Range Interpretation [...] = MDIFF) UA RFLX MICR CULT IF [id number] 10:10:00 Test Item Value Reference Range Interpretation [...] Suprapubic Pain Temperature > 100.4 FSpecimen Description: MID STREAMBASIC METABOLIC [id number] 04:13:00 Test Item Value Reference Range Interpretation [...] mg/dL 8.0-10.5 N CA) Coronavirus 2018 nCoV [id number] 22:03:00 Test Item Value Reference Range Interpretation Comments Coronavirus 2018 Negative Negative Performed b y certified nCoV Bedside (bulb tester at [facility] code = CtrNegative res ults should [id number]) be treated as presumptive and, ifinconsis tent with clinical signs and symptoms or necessaryfor patient management, fifi uld be tested with an alternativemole cular assay. Negative result s do not preclude KBWD-UcA-8nsnnx tion and should not be u sed as the sole basis forp atient management deci sions. Negative result s should beconsidered in the context of a patient's recent exposures,histo ry, presence of clinical sig ns and symptoms consis tentwith COVID-19. CBC W/AUTO [id number] 21:11:00 Test Item Value Reference Range Interpretation [...] MX#) 0.6 k/mm3 0.1-0.8 N BASIC METABOLIC [id number] 19:00:00 Test Item Value Reference Range Interpretation [...] POCGLU) 92 MG/DL - CT ABD PELVIS W/[id number] 00:00:00 [facility] TYLER LAKEName: DORA JOSEPH : 1970 Sex: M Name: DORA JOSEPH FSED : 1970 Age/S: 51 / M [address] [facility] Unit #: [id number] Loc: [place] [address] Phys: Marcello Benoit MD Acct: [id number] Dis Date: Status: REG KARLIE #: Exam Date: 04/28/2021 191 FAX #: Reason: epigastric and LLQ pain, R-sided colostomy EXAMS:CPT CODE: [id number] CT ABD PELVIS W/CONT 70519 PROCEDURE INFORMATION: Exam: CT Abdomen And Pelvis [...] unremarkable. PAGE 1 Signed Report (CONTINUED) Name: OPALDORA Erazo FSED : 1970 Age/S: 51 / M [address] [facility] Unit #: [id number] Loc: [place] [address] Phys: Marcello Benoit MD Acct:[id number] Dis Date: Status: REG ER PHONE #: Exam Date: 04/28/2021 9672 FAX #: Reason: epigastricand LLQ pain, R-sided colostomy EXAMS: CPT CODE: [id number] CT ABD PELVIS W/CONT 63754 <Continued> Reproductive: Unremarkable as visualized. Bones/joints: Unremarkable. No acute fracture. Soft tissues: Unremarkable. IMPRESSION: 1. 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 2. Mild long segment bowel wall thickening/mucosal prominence compatible with an enteritis. No evidence for obstruction. at 1956 Reported and signed by: Hector Nichols M.D. CC: Marcello Benoit MD Technologist:Stephanie Albrecht, RT(R)(CT) CTDI: DLP: Trnscb Date/Time: 04/28/2021 (1955) tITZL Orig Print D/T: S: 04/28/2021 (1955) PAGE 2 Signed Report- XR ABDOMEN 1 [id number] 12:53:00 Name: DORA JOSEPH [facility] : 1970 Age/S: 50 / M [address] Unit #: [id number] Loc: [place] [address] 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 PRODUCTION LINE MANAGER Acct: [id number] Dis Date: Status: ADM IN PHONE #: [phone] Exam Date: 02/25/2020 1036 FAX #: Reason: abdominal distention EXAMS: CPT: [id number] XR ABDOMEN 1 V 36806 Fluoro Time: DAP (Gy m2): Air Kerma [...] PAGE 1 Signed Report Name: DORA JOSEPH [facility] : 1970 Age/S: 50 / M [address] Unit #: [id number] Loc: [place] [address] 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 Acct: [id number] Dis Date: Status: ADM IN PHONE #: [phone] Exam Date: 02/25/2020 1036 FAX #: Reason: abdominal distention EXAMS: CPT: [id number] XR ABDOMEN 1 V 82253 Fluoro Time: DAP (Gy m2): Air Kerma (mGy): <Continued&g t; Technologist: Nichole Dill, RT(R) Trnscb Date/Time: 02/25/2020 (125) tDARWINR.EFM1 Orig PrintD/T: S: 02/25/2020 (0496) PAGE 2 Signed ReportCOMPREHENSIVE METABOLIC [id number] 08:20:00 Test Item Value Reference Range Interpretation [...] 50-136 L TOTAL (test code = ALKP) [id number] 08:20:00 Test Item Value Reference Range Interpretation Comments MAGNESIUM (test code = MAG) 2.2 MG/DL 1.8-2.4 N THYROID STIMULATING [id number] 08:20:00 Test Item Value Reference Range Interpretation Comments THYROID STIMULATING HORMONE 5.430 mcIU/ML 0.340-4.820 H (test code = TSH) CBC W/AUTO [id number] 07:55:00 Test Item Value Reference Range Interpretation [...] N NRBC#) UA RFLX MICR CULT IF [id number] 12:29:00 Test Item Value Reference Range Interpretation [...] culture: Suprapubic PainUA RFLX MICR CULT IF [id number] 12:29:00 Test Item Value Reference Range Interpretation [...] for culture: Suprapubic PainCOVID 19 Asymptomatic IH [id number] 22:09:00 Test Item Value Reference Range Interpretation [...] tent with COVID-19. - CT ABD PELVIS [id number] 21:10:00 Name: DORA JOSEPH [facility] : 1970 Age/S: 50 / M [address] Unit #: [id number] Loc: [place] [address] Phys: Evin Castellanos MD Acct: [id number] Dis Date: Status: REG ER PHONE #: [phone] Exam Date: 02/23/20202047 FAX #: Reason: diffuse abdomen pain and distention EXAMS: CPT: [id number] CT ABD PELVIS W/CONT 50207 EXAM: - CT ABD PELVIS W/CONT LOCATION: [...] 1 Signed Report (CONTINUED) Name: DORA JOSEPH [facility] : 1970 Age/S: 50 / M [address] Unit #: [id number] Loc: [place] [address] Phys: Evin Castellanos MD Acct: [id number] Dis Date: Status: REG ER PHONE #: [phone] Exam Date: 02/23/20202047 FAX #: Reason: diffuse abdomen pain and distention EXAMS: CPT: [id number] CT ABD PELVIS W/CONT 61646 <Continued> CT. No bowel wall thickening or [...] by: Marybel José M.D. CC: Susana Meza HARBOR DEPARTMENT MANAGER; Carl Luevano MD Technologist:Rudy Zuniga, RT(R)(CT)(MRI) CTDI: DLP: Trnscb Date/Time: 02/23/2020 (2109) t.SDR.SQ46Tgld Print D/T: S: 02/23/2020 (2112) PAGE 2 Signed Report- XR CHEST 1 [id number] 21:03:00 Name: DORA JOSEPH [facility] : 1970 Age/S: 50 / M [address] Unit #: [id number] Loc: [place] [address] Phys: Evin Castellanos MD Acct: [id number] Dis Date: Status: REG ER PHONE #: [phone] Exam Date: 02/23/20202055 FAX #: Reason: Code Sepsis EXAMS: CPT: [id number] XR CHEST 1 V 63049 Fluoro Time: DAP (Gy m2): Air Kerma [...] by: Monica Quijano MD CC: Susana Meza HARBOR DEPARTMENT MANAGER; Carl Luevano MD PAGE 1 Signed Report Name: DORA JOSEPH [facility] : 1970 Age/S: 50 / M [address] Unit #: [id number] Loc: [place] [address] Phys: Evin Castellanos MD Acct: [id number] Dis Date:Status: REG ER PHONE #: [phone] Exam Date: 02/23/20202055 FAX #: Reason: Code Sepsis EXAMS: CPT: [id number] XR CHEST 1 V 66523 Fluoro Time: DAP (Gy m2): Air Kerma (mGy): <Continued> Technologist: Rudy Zuniga RT(R)(CT)(MRI) Trnscb Date/Time: 02/23/2020 (2102) Alanis Orig Print D/T: S: 02/23/2020 (2106) PAGE 2 Signed ReportBASIC METABOLIC [id number] 20:02:00 Test Item Value Reference Range Interpretation [...] 8.5-10.1 N Completed by Nursing: NOHEPATIC FUNCTION [id number] 20:02:00 Test Item Value Reference Range Interpretation [...] N code = ALKP) Completed by Nursing: [id number] 20:02:00 Test Item Value Reference Range Interpretation Comments LIPASE (test code = LIP) 97 Unit/L 114-286 L Completed by Nursing: [id number] 20:02:00 Test Item Value Reference Range Interpretation [...] brittani yby method. Completed by Nursing: NOLACTIC [id number] 19:59:00 Test Item Value Reference Range Interpretation Comments LACTIC ACID (test code = LACT) 1.2 mmol/L 0.4-2.0 N CBC W/AUTO [id number] 19:46:00 Test Item Value Reference Range Interpretation [...] CRITERIA = MDIFF) - XR ABDOMEN 2 [id number] 06:22:00 Name: DORA JOSEPH [facility] : 1970 Age/S: 50 / M [address] Unit #: [id number] Loc: [place] [address] Phys: León Robertson MD Acct: [id number] Dis Date: Status: ADM IN PHONE #: [phone] Exam Date: 02/19/2020 0440 FAX #: Reason: megacolon EXAMS: CPT: [id number] XR ABDOMEN 2 V 95612 Fluoro Time: DAP (Gy m2): Air Kerma [...] CC: León Robertson MD; Coco Nova MD PAGE1 Signed Report [facility]: [facility] [place] [facility] 1970 Age/S: 50 / M [address] Unit #: [id number] Loc: [place] [address] Phys: León Robertson MD Acct: [id number] Dis Date:Status: ADM IN PHONE #: [phone] Exam Date: 02/19/2020 0440 FAX #: Reason: megacolon EXAMS: CPT: [id number] XR ABDOMEN 2 V 04739 Fluoro Time: DAP (Gy m2): Air Kerma (mGy): <Continued> Technologist: Carrie Barnett, RT(R)(CT) Trnscb Date/Time: 02/19/2020 (0622) GarettAL7 Orig Print D/T: S: 02/19/2020 (7980) PAGE 2 Signed ReportBASIC METABOLIC [id number] 05:52:00 Test Item Value Reference Range Interpretation [...] CA) 8.5 MG/DL 8.5-10.1 N CBC W/AUTO [id number] 05:40:00 Test Item Value Reference Range Interpretation [...] NO DIFF/SCN CRITERIA = MDIFF) BASIC METABOLIC [id number] 06:52:00 Test Item Value Reference Range Interpretation [...] CA) 8.3 MG/DL 8.5-10.1 L CBC W/AUTO [id number] 06:39:00 Test Item Value Reference Range Interpretation [...] DIFF/SCN CRITERIA = MDIFF) Coronavirus 2019 nCoV [id number] 05:35:00 Test Item Value Reference Range Interpretation [...] tent with COVID-19. - XR ABDOMEN 1 [id number] 07:32:00 Name: DORA JOSEPH [facility] : 1970 Age/S: 49 / M [address] Unit #: [id number] Loc: [place] [address] Phys: Jay Mayo MD Acct: [id number] Dis Date: Status: ADM IN PHONE #: [phone] Exam Date: 01/10/2020 0658 FAX #: Reason: follow up colonic ileus EXAMS:CPT: [id number] XR ABDOMEN 1 V 83907 Fluoro Time: DAP (Gy m2): Air Kerma [...] PAGE 1 Signed Report Name: DORA JOSEPH [facility] : 1970Age/S: 49 / M [address] Unit #: [id number] Loc: [place] [address] Phys: Jay Mayo MD Acct: [id number] Dis Date: Status: ADM IN PHONE #: [phone] Exam Date: 01/10/2020 0658 FAX #: Reason: follow up colonic ileus EXAMS: CPT: [id number] XR ABDOMEN 1 V 10680 Fluoro Time: DAP (Gy m2): Air Kerma (mGy): <Continued> Technologist: Bakari De Leon RT(R)(CT) Trnscb Date/Time: 01/10/2020 (0732) GarettCB5 Orig Print D/T: S: 01/10/2020 (0736) PAGE 2 Signed ReportCOMPREHENSIVE METABOLIC [id number] 05:56:00 Test Item Value Reference Range Interpretation [...] TOTAL (test code = ALKP) CBC W/AUTO [id number] 05:42:00 Test Item Value Reference Range Interpretation [...] = NO DIFF/SCN CRITERIA MDIFF) BASIC METABOLIC [id number] 06:59:00 Test Item Value Reference Range Interpretation [...] code = CA) 8.5 MG/DL 8.5-10.1 N [id number] 06:59:00 Test Item Value Reference Range Interpretation Comments MAGNESIUM (test code = MAG) 2.2 MG/DL 1.8-2.4 PROTHROMBIN [id number] 06:39:00 Test Item Value Reference Range Interpretation Comments PT PATIENT (test code = PTP) 13.1 SECONDS 9.3-12.9 H INTERNATIONAL NORMAL RATIO 1.16 INR Unit 0.8-1.2 N (test code = INR) CBC W/AUTO [id number] 06:22:00 Test Item Value Reference Range Interpretation [...] DIFF/SCN CRITERIA MDIFF) - XR ABDOMEN 1 [id number] 05:39:00 Name: DORA JOSEPH [facility] : 1970 Age/S: 49 / M [address] [facility] [address] #: [id number] Loc: [place] [address] 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 PRODUCTION LINE MANAGER Acct: [id number] Dis Date: Status: ADM IN PHONE#: [phone] Exam Date: 01/09/2020522 FAX #: Reason: colonic ileus/obstruction EXAMS: CPT: [id number] XR ABDOMEN 1 V 81004 Fluoro Time: DAP (Gy m2): Air Kerma [...] PAGE 1 Signed Report Name: ADINA JOSEPH [place] : 1970 Age/S: 49 / M [address] Unit #: [id number] Loc: [place] [address] 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 Acct: [id number] Dis Date: Status: ADM IN PHONE #: [phone] Exam Date: 01/09/2020522 FAX #: Reason: colonic ileus/obstruction EXAMS: CPT: [id number] XR ABDOMEN 1 Q32281 Fluoro Time: DAP (Gy m2): Air Kerma (mGy): <Continued> Technologist: Carrie Barnett, RT(R)(CT) Trnscb Date/Time: 01/09/2020 (0539) t.FC Orig Print D/T: S: 01/09/2020 (0542) PAGE 2 Signed ReportCoronavirus 2018 nCoV [id number] 22:38:00 Test Item Value Reference Range Interpretation Comments Coronavirus 2019 nCoV Bedside (test Negative Negative code = [id number]) Emergent procedure? YESCoronavirus 2018 nCoV [id number] 22:38:00 Test Item Value Reference Range Interpretation Comments Coronavirus 2019 nCoV Bedside (test Negative Negative code = EGJRX76MPFBB) Emergent procedure? YESBASIC METABOLIC [id number] 18:42:00 Test Item Value Reference Range Interpretation [...] CA) 8.5 MG/DL 8.5-10.1 N CBC W/AUTO [id number] 10:50:00 Test Item Value Reference Range Interpretation [...] = NO DIFF/SCN CRITERIA MDIFF) COMPREHENSIVE METABOLIC [id number] 10:46:00 Test Item Value Reference Range Interpretation [...] 50-136 N TOTAL (test code = ALKP) [id number] 10:46:00 Test Item Value Reference Range Interpretation Comments MAGNESIUM (test code = MAG) 2.6 MG/DL 1.8-2.4 H COMPREHENSIVE METABOLIC [id number] 10:34:00 Test Item Value Reference Range Interpretation [...] TOTAL (test Unit/L 50-136 code = ALKP) [id number] 10:34:00 Test Item Value Reference Range Interpretation Comments MAGNESIUM (test code = MAG) MG/DL 1.8-2.4 - XR ABDOMEN 1 [id number] 08:28:00 Name: DORA JOSEPH [facility] : 1970 Age/S: 49 / M [address] Unit #: [id number] Loc: [place] [address] Phys: Yas Edwards MD Acct: [id number] Dis Date: Status: ADM IN PHONE #: [phone] Exam Date: 01/08/2020 05 FAX #: Reason: ileus EXAMS: CPT: [id number] XR ABDOMEN 1V 09449 Fluoro Time: DAP (Gy m2): Air Kerma [...] PAGE 1 Signed Report Name: DORA JOSEPH [facility] : 1970 Age/S: 49 / M [address] Unit #: [id number] Loc: [place] [address] Phys: Yas Edwards MD Acct: [id number] Dis Date: Status: ADM IN PHONE #: [phone] Exam Date: 01/08/2020509 FAX #: Reason: ileus EXAMS: CPT: [id number] XR ABDOMEN 1 V 51472 Fluoro Time: DAP (Gy m2): Air Kerma (mGy): <Continued> Technologist: Carrie Barnett, RT(R)(CT); ... Trnscb Date/Time: 01/08/2020 (827) t.SDR.JTM Orig Print D/T: S: 01/08/2020 (830) PAGE 2 Signed ReportCOMPREHENSIVE METABOLIC [id number] 07:08:00 Test Item Value Reference Range Interpretation [...] 50-136 L TOTAL (test code = ALKP) [id number] 07:08:00 Test Item Value Reference Range Interpretation Comments MAGNESIUM (test code = MAG) 1.3 MG/DL 1.8-2.4 L COMPREHENSIVE METABOLIC [id number] 05:16:00 Test Item Value Reference Range Interpretation [...] 50-136 L TOTAL (test code = ALKP) [id number] 05:16:00 Test Item Value Reference Range Interpretation Comments MAGNESIUM (test code = MAG) 1.3 MG/DL 1.8-2.4 L CBC W/AUTO [id number] 05:02:00 Test Item Value Reference Range Interpretation [...] (test code = NO DIFF/SCN CRITERIA MDIFF) [id number] 16:51:00 Test Item Value Reference Range Interpretation Comments MAGNESIUM (test code = MAG) 2.3 MG/DL 1.8-2.4 N FE W/TOTAL IRON BINDING CAP.2020-01-07 16:51:00 Test Item Value Reference Range Interpretation Comments SERUM IRON (test code = IRON) 38 mcG/DL 65-175 L TOTAL IRON BINDING CAPACITY (test 322 mcG/DL 250-450 N code = TIBC) IRON SATURATION (test code = 12 % calc 12-57 N FESAT) [id number] 16:51:00 Test Item Value Reference Range Interpretation Comments FERRITIN (test code = DAVID) 17.6 NG/ML 5.0-323.0 N CALCIUM [id number] 16:50:00 Test Item Value Reference Range Interpretation Comments CALCIUM IONIZED (test code = NAVEED) 1.12 mmol/L 1.12-1.32 N - XR ABDOMEN 1 [id number] 10:29:00 Name: DORA JOSEPH [facility] : 1970 Age/S: 49 / M [address] Unit #: [id number] Loc: [place] [address] Phys: Verona Frost PA-C Acct: [id number] Dis Date: Status: ADM IN ONE #: [phone] Exam Date: 01/07/2020 0712 FAX #: Reason: reassess SBO EXAMS: CPT: [id number] XRABDOMEN 1 V 55701 Fluoro Time: DAP (Gy m2): Air Kerma [...] PAGE 1 Signed Report Name: DORA JOSEPH [facility] : 1970 Age/S: 49 / M [address] Unit #: [id number] Loc: [place] [address] Phys: Verona Frost PA-C Acct: [id number] Dis Date: Status: ADM IN PHONE #: [phone] Exam Date: 01/07/2020 0712 FAX #: Reason: reassess SBO EXAMS: CPT: [id number] XR ABDOMEN 1 V 39384 Fluoro Time: DAP(Gy m2): Air Kerma (mGy): <Continued> Technologist: Bakari De Leon RT(R)(CT) Trnscb Date/Time: 01/07/2020 (1029) t.SDR.AGV Orig Print D/T: S: 01/07/2020 (1032) PAGE 2 Signed ReportBASIC METABOLIC [id number] 07:01:00 Test Item Value Reference Range Interpretation [...] CA) 5.4 MG/DL 8.5-10.1 LL CBC W/AUTO [id number] 06:49:00 Test Item Value Reference Range Interpretation [...] = NO DIFF/SCN CRITERIA MDIFF) COMPREHENSIVE METABOLIC [id number] 06:10:00 Test Item Value Reference Range Interpretation [...] TOTAL (test code = ALKP) CBC W/AUTO [id number] 05:52:00 Test Item Value Reference Range Interpretation [...] DIFF/SCN CRITERIA MDIFF) - XR ABDOMEN 1 [id number] 01:30:00 Name: DORA JOSEPH [facility] : 1970 Age/S: 49 / M [address] Unit #: [id number] Loc: [place] [address] 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 CC: Mark Perea MD; Rafael Coleman HARBOR DEPARTMENT MANAGER PAGE 1 Signed Report Name: DORA JOSEPH [facility] : 1970 Age/S: 49 / M [address] Unit #: [id number] Loc: [place] [address] Phys: Ted Coleman NP Acct: [id number] Dis Date: Status: ADM IN PHONE #: [phone] Exam Date: 01/06/2020 010 FAX #: Reason:NG Tube Placement Verification EXAMS: CPT: [id number] XR ABDOMEN 1 V 05706 Fluoro Time: DAP (Gy m2): Air Kerma (mGy): <Continued> Technologist: RT Tatum(R) Trninb Date/Time: 01/06/2020 (129) Herrera Orig Print D/T: S: 01/06/2020 (013) PAGE 2 Signed Report- CT ABD PELVIS W/O [id number] 19:42:00 [place]: St: REG -- Name: DORA JOSEPH [facility] : 1970 Age/S: 49/M [address] [facility] Unit: [id number] Loc: [place], [place] Phys: [place] [address] Acct: [id number] Dis Date:Status: REG ER PHONE #: [phone] Exam Date: 12/13/20191924 FAX #: [phone] Reason: pain EXAMS: CPT CODE: [id number] CT ABD PELVIS W/O CONT 43304 Examination: CT scan abdomen and pelvis without [...] or inguinal adenopathy is identified. Bladder is distendedand is grossly unremarkable. Prostatic calcifications are noted. [...] definite obstructive lesion is identified given the s tability of this finding is likely as a chronic finding. 2. Otherwise unremarkable unenhanced CT scan of abdomen and pelvis. at 1942 Reported andsigned by: SHANEL EDWARDS CC: Technologist: SUJATA ALAMNZAR Trnscrd Dt/Tm: 12/13/2019 (1941) tDARWINR.VR5 Orig Print D/T: S: 12/13/2019 (5 PAGE [...] code = CA) 8.6 mg/dl 8.0-10.5 N [id number] 18:49:00 Test Item Value Reference Range Interpretation Comments LIPASE (test code = LIP) 97 Units/L 65.0-230.0 N CBC W/AUTO [id number] 18:38:00 Test Item Value Reference Range Interpretation [...] K/mm3 0.0-0.2 N - XR CHEST 1 [id number] 18:36:00 [place]: St: PRE -- Name: DORA JOSEPH [facility] : 1970 Age/S: 49/M [address] [facility] Unit #: [id number] Loc: [place], [place] Phys: [place] [address] Acct: [id number] Dis Date:Status: PRE ER PHONE #: [phone] Exam Date: 12/13/2019 1822 FAX #: [phone] Reason: SOB EXAMS: CPT CODE: [id number] XR CHEST 1 V 94346 Examination: One view chest x-ray Location code: [...] : By: GarettVR5 PAGE 1 Signed Report [place]: St: PRE ------ Name: DORA JOSEPH [facility] : 1970 Age/S: 49/M [address] [facility] Unit #: [id number] Loc: [place], [place]: [place] [address] Acct: [id number] Dis Date: Status: PRE ER PHONE #: [phone] Exam Date: 12/13/20191821 FAX #: [phone] Reason: SOB EXAMS: CPT CODE: [id number] XR CHEST 1 V 37854 (Continued) Orig Print D/T: S: 12/13/2019 (183) PAGE 2 Signed ReportCB W/PLT COUNT & AUTO [id number] 08:02:00 Test Item Value Reference Range Interpretation [...] Received comment: User comments: Slide comments:BASIC METABOLIC [id number] 07:34:00 Test Item Value Reference Range Interpretation [...] S NOT APPLICABLE FOR DIALYSIS PATIEN TS. [id number] 07:26:00 Test Item Value Reference Range Interpretation Comments PHOSPHORUS (BEAKER) (test code = 3.1 mg/dL 2.3-4.7 604) [id number] 07:26:00 Test Item Value Reference Range Interpretation Comments MAGNESIUM (BEAKER) (test code = 1.6 mg/dL 1.6-2.6 627) RAD, ABDOMEN/KUB, 1 VIEW [id number] 07:04:00Reason for exam:->ileusFINAL REPORT Abdomen , one [...] MDReport Verified Date/Time: 04/03/2019 07:04:46 Reading Location: [address] Consult Reading Room BASIC METABOLIC [id number] 06:47:00 Test Item Value Reference Range Interpretation [...] code = 413) URINALYSIS WITH MICROSCOPIC IF [id number] 22:01:00 Test Item Value Reference Range Interpretation [...] 463) SOURCE(BEAKER) (test code = 2795) URINALYSIS [id number] 22:01:00 Test Item Value Reference Range Interpretation Comments RBC UA (BEAKER) (test code = 519) 18 /HPF WBC UA (BEAKER) (test code = 520) 1 /HPF CALCIUM OXALATE CRYSTALS (BEAKER) Occasional (test code = 518) [id number] 05:49:00 Test Item Value Reference Range Interpretation Comments PHOSPHORUS (BEAKER) (test code = 2.5 mg/dL 2.3-4.7 604) [id number] 05:49:00 Test Item Value Reference Range Interpretation Comments MAGNESIUM (BEAKER) (test code = 1.7 mg/dL 1.6-2.6 627) BASIC METABOLIC [id number] 05:49:00 Test Item Value Reference Range Interpretation [...] (BEAKER) (test code = 413) BASIC METABOLIC [id number] 06:19:00 Test Item Value Reference Range Interpretation [...] S NOT APPLICABLE FOR DIALYSIS PATIEN TS. [id number] 06:10:00 Test Item Value Reference Range Interpretation Comments MAGNESIUM (BEAKER) 1.8 mg/dL 1.6-2.6 Specimen slightly (test code = 627) hemolyzed [id number] 06:10:00 Test Item Value Reference Range Interpretation [...] (BEAKER) (test code = 413) BASIC METABOLIC [id number] 04:57:00 Test Item Value Reference Range Interpretation [...] S NOT APPLICABLE FOR DIALYSIS PATIEN TS. [id number] 04:55:00 Test Item Value Reference Range Interpretation Comments PHOSPHORUS (BEAKER) (test code = 2.6 mg/dL 2.3-4.7 604) [id number] 04:55:00 Test Item Value Reference Range Interpretation Comments MAGNESIUM (BEAKER) (test code = 1.8 mg/dL 1.6-2.6 627) CT, [id number] 14:16:00FINAL REPORT TECHNIQUE: CT of the abdomen [...] Kim MDReport Verified Date/Time: 03/29/2019 14:16:01Reading Location: [address] Body Reading Room , ABDOMEN/KUB, 1 VIEW [id number] 10:23:00Reason for exam:->evaluate ileusFINAL REPORT Technique: Supine [...] Urbinaeport Verified Date/Time: 03/29/2019 10:23:29 Reading Location: [facility] Reading Room CBC (HEMOGRAM ONLY)2019-03-29 [...] WBC 0-0 (BEAKER) (test code = 413) [id number] 06:20:00 Test Item Value Reference Range Interpretation Comments PHOSPHORUS (BEAKER) (test code = 2.6 mg/dL 2.3-4.7 604) [id number] 06:20:00 Test Item Value Reference Range Interpretation Comments MAGNESIUM (BEAKER) (test code = 2.0 mg/dL 1.6-2.6 627) BASIC METABOLIC [id number] 06:20:00 Test Item Value Reference Range Interpretation [...] TS. RAD, ABDOMEN SERIES W/ UPRIGHT PA [id number] 22:18:00Reason for exam:- >eval ileusFINAL REPORT CLINICAL [...] with CT abdomen pelvis. Signed: Mari Bethea MDReport Verified Date/Time: 03/28/2019 22:18:50 RAD, ABDOMEN/KUB, 1 VIEW [id number] 11:23:00Reason for exam:->abdominal distensionShould this be performed [...] MDReport Verified Date/Time: 03/28/2019 11:23:34 Reading Location: [facility] Radiology Reading Room TISSUE [id number] 09:00:00Surgical Pathology Report Case: [id number] Authorizing Provider: Graciela Garrison MD Collected: 03/25/2019 1133 Ordering Location: [facility] Received: 03/25/2019 1527 SERVICES Pathologist: Jordan [...] FOR MALIGNANCY Signing Pathologist Direct Phone Line: [phone] signed by Jordan Celaya MD on 03/28/2019 at 9:00 [id number] and postop diagnosis: ileostomy statusA. End ileostomy; [...] nodes are not identified in the mesentery. Documentation Liaison sections are submitted. Section code: A, business office representative section of each end of first mentioned segment of small bowel; A2, business office representative of first mentioned segment of small bowel mucosa; A3, area of hemorrhagic mesentery of second mentioned segment of mucosa; A4, business office representative of hemorrhagic mucosa at open end of second portion of small bowel; A5, business office representative of stapled margin from second mentioned [...] 0.2 cm. No gross lesions are identified. Documentation Liaison sections are submitted. Section code: B1, proximal margin en face and tip; B2, business office representative cross section. CG/pl Performed.[id number] 06:23:00 Test Item Value Reference Range Interpretation Comments PHOSPHORUS (BEAKER) (test code = 2.7 mg/dL 2.3-4.7 604) [id number] 06:23:00 Test Item Value Reference Range Interpretation Comments MAGNESIUM (BEAKER) (test code = 1.9 mg/dL 1.6-2.6 627) BASIC METABOLIC [id number] 06:23:00 Test Item Value Reference Range Interpretation [...] S NOT APPLICABLE FOR DIALYSIS PATIEN TS. [id number] 08:20:00 Test Item Value Reference Range Interpretation Comments PHOSPHORUS (BEAKER) (test code = 2.6 mg/dL 2.3-4.7 604) [id number] 08:20:00 Test Item Value Reference Range Interpretation Comments MAGNESIUM (BEAKER) (test code = 1.8 mg/dL 1.6-2.6 627) BASIC METABOLIC [id number] 08:20:00 Test Item Value Reference Range Interpretation [...] S NOT APPLICABLE FOR DIALYSIS PATIEN TS. [id number] 06:06:00 Test Item Value Reference Range Interpretation Comments PHOSPHORUS (BEAKER) (test code = 4.1 mg/dL 2.3-4.7 604) [id number] 06:06:00 Test Item Value Reference Range Interpretation Comments MAGNESIUM (BEAKER) (test code = 1.8 mg/dL 1.6-2.6 627) BASIC METABOLIC [id number] 06:06:00 Test Item Value Reference Range Interpretation [...] S NOT APPLICABLE FOR DIALYSIS PATIEN TS. [id number] 06:03:00 Test Item Value Reference Range Interpretation Comments PHOSPHORUS (BEAKER) (test code = 4.2 mg/dL 2.3-4.7 604) [id number] 06:03:00 Test Item Value Reference Range Interpretation Comments MAGNESIUM (BEAKER) (test code = 2.0 mg/dL 1.6-2.6 627) BASIC METABOLIC [id number] 06:03:00 Test Item Value Reference Range Interpretation [...] WBC 0-0 (BEAKER) (test code = 413) [id number] 05:52:00 Test Item Value Reference Range Interpretation Comments PHOSPHORUS (BEAKER) (test code = 4.2 mg/dL 2.3-4.7 604) [id number] 05:52:00 Test Item Value Reference Range Interpretation Comments MAGNESIUM (BEAKER) (test code = 1.9 mg/dL 1.6-2.6 627) BASIC METABOLIC [id number] 05:52:00 Test Item Value Reference Range Interpretation [...] S NOT APPLICABLE FOR DIALYSIS PATIEN TS. [id number] 06:51:00 Test Item Value Reference Range Interpretation Comments PHOSPHORUS (BEAKER) (test code = 4.3 mg/dL 2.3-4.7 604) [id number] 06:51:00 Test Item Value Reference Range Interpretation Comments MAGNESIUM (BEAKER) (test code = 2.0 mg/dL 1.6-2.6 627) BASIC METABOLIC [id number] 06:51:00 Test Item Value Reference Range Interpretation [...] 0-0 (BEAKER) (test code = 413) TISSUE [id number] 11:50:00Surgical Pathology Report Case: [id number] Authorizing Provider: Mela Larson MD Collected: 03/18/2019 1827 Ordering Location: [facility] Received: 03/21/2019 0823 SERVICES Pathologist: Jordan Celaya MD Specimen: Small Bowel, NOS A. SMALL BOWEL, ILEOSTOMY PROLAPSE, TAKEDOWN: - ANASTOMOSIS SITE WITH ACTIVE CHRONIC INFLAMMATION AND FOCAL ISCHEMIC CHANGES - MUCOSAL RESECTION MARGINS, NEGATIVE FOR MALIGNANCY - ONE BENIGN LYMPH NODE (0/1) - NEGATIVE FOR DYSPLASIA OR MALIGNANCYSigning Pathologist Direct Phone Line: [phone] signed by Jordan Celaya MDon 03/22/2019 at 11:50 [id number] of ileostomyReceived in a container labeled "small [...] 0.5 to 1.2 cm in greatest dimension. Documentation Liaison sections are submitted as follows: A1-A2, mucosal resection margin, en face; A3-A6, business office representative sections of the possible ostomy stump; A7-A11, serial business office representative sections from mucosal resection margin to the possible ostomy stump; A12, two lymph nodes. TH/plPerformed.[id number] 06:58:00 Test Item Value Reference Range Interpretation Comments PHOSPHORUS (BEAKER) (test code = 3.8 mg/dL 2.3-4.7 604) [id number] 06:58:00 Test Item Value Reference Range Interpretation Comments MAGNESIUM (BEAKER) (test code = 2.0 mg/dL 1.6-2.6 627) BASIC METABOLIC [id number] 06:58:00 Test Item Value Reference Range Interpretation [...] PATIEN TS. CBC W/PLT COUNT & AUTO [id number] 05:42:00 Test Item Value Reference Range Interpretation [...] 0-1 PERCENT (BEAKER) (test code = 2801) FL [id number] 17:42:00Reason for exam:->evaluate for colon stricture as [...] [place] Verified Date/Time: 03/21/2019 17:42:21 Reading Location: [address] Consult Reading Room [id number] 03:58:00 Test Item Value Reference Range Interpretation Comments PHOSPHORUS (BEAKER) (test code = 3.0 mg/dL 2.3-4.7 604) [id number] 03:58:00 Test Item Value Reference Range Interpretation Comments MAGNESIUM (BEAKER) (test code = 2.0 mg/dL 1.6-2.6 627) BASIC METABOLIC [id number] 03:58:00 Test Item Value Reference Range Interpretation [...] PATIEN TS. CBC W/PLT COUNT & AUTO [id number] 03:20:00 Test Item Value Reference Range Interpretation [...] (BEAKER) (test code = 2801) BASIC METABOLIC [id number] 06:26:00 Test Item Value Reference Range Interpretation [...] S NOT APPLICABLE FOR DIALYSIS PATIEN TS. [id number] 06:05:00 Test Item Value Reference Range Interpretation Comments PHOSPHORUS (BEAKER) (test code = 2.2 mg/dL 2.3-4.7 L 604) [id number] 06:05:00 Test Item Value Reference Range Interpretation Comments MAGNESIUM (BEAKER) (test code = 2.0 mg/dL 1.6-2.6 627) CBC W/PLT COUNT & AUTO [id number] 05:25:00 Test Item Value Reference Range Interpretation [...] 0-1 PERCENT (BEAKER) (test code = 2801) [id number] 04:31:00 Test Item Value Reference Range Interpretation Comments PHOSPHORUS (BEAKER) (test code = 3.7 mg/dL 2.3-4.7 604) [id number] 04:31:00 Test Item Value Reference Range Interpretation Comments MAGNESIUM (BEAKER) (test code = 1.9 mg/dL 1.6-2.6 627) BASIC METABOLIC [id number] 04:31:00 Test Item Value Reference Range Interpretation [...] PATIEN TS. CBC W/PLT COUNT & AUTO [id number] 04:15:00 Test Item Value Reference Range Interpretation [...] 0-1 PERCENT (BEAKER) (test code = 2801) [id number] 06:41:00 Test Item Value Reference Range Interpretation Comments PHOSPHORUS (BEAKER) (test code = 3.1 mg/dL 2.3-4.7 604) [id number] 06:41:00 Test Item Value Reference Range Interpretation Comments MAGNESIUM (BEAKER) (test code = 1.9 mg/dL 1.6-2.6 627) BASIC METABOLIC [id number] 06:41:00 Test Item Value Reference Range Interpretation [...] PATIEN TS. CBC W/PLT COUNT & AUTO [id number] 06:36:00 Test Item Value Reference Range Interpretation [...] PERCENT (BEAKER) (test code = 2801) CT, [id number] 17:04:00No PO contrastFINAL REPORT ABDOMINAL AND PELVIS [...] MDReport Verified Date/Time: 03/17/2019 17:04:19 Reading Location: [facility] C013Y CT Body Reading Room XR ABDOMEN 2 [id number] 09:03:45XR ABDOMEN 2 VIEWSLOCATION: [id number]: Colstomy ProlapseCOMPARISON: Chest radiograph 04/15/2017, CT of [...] Nonspecific, nonobstructive bowel gas pattern.XR CHEST 1 [id number] 11:32:15EXAM: CHEST ONE VIEWINDICATION: Chest painCOMPARISON: None availableTECHNIQUE: AP view of the chest.FINDINGS: The cardiomediastinal silhouette is normal. The lungs are clearbilaterally. No pneumothoraxor pleural effusion is identified. Theosseous structures are unremarkable.IMPRESSION: No acute cardiopulmonary process.LOCATION: [id number] Type and [id number] 21:21:00 Test Item Value Reference Range Interpretation Comments ABO type (test code = ABO) O Rh Type (test code = RH) Positive Comprehensive Metabolic [id number] 20:36:00 Test Item Value Reference Range Interpretation [...] validated by th e MDRD study and fifiul d be interpretedwith caution.eGFR Re sult Interpretation: eGFR > or = 60 is in t he Normal RangeeGF R < 60 may mean kidney diseaseeGFR < 1 5 may mean kidney failureRange s recommended by the National Kidney Foundation,http ://nkd ep.nih.gov Alcohol/Ethanol, [id number] 20:36:00 Test Item Value Reference Range Interpretation Comments Alcohol, Ethyl <0.01 g/dL 0.00-0.01 N Intoxicated 0 .080 g/dL (test code = ETOH) or more Prothrombin [id number] 20:00:00 Test Item Value Reference Range Interpretation Comments PT (test code = PT) 10.10 seconds 9.78-13.35 N INR (test code = INR) 0.88 Ratio 0.6-1.2 N Partial Thromboplastin [id number] 20:00:00 Test Item Value Reference Range Interpretation Comments aPTT (test code = PTT) 31.50 seconds 24.39-37.25 N CBC with [id number] 19:50:00 Test Item Value Reference Range Interpretation [...] code = ALYMPH) 2.2 K/cumm 0.5-4.6 N [place] Abs (test code = AMONO) 0.4 K/cumm 0.0-1.2 N Eos Abs (test code = AEOS) 0.17 K/cumm 0.00-0.74 N Baso Abs (test code = ABASO) 0.0 K/cumm 0.00-0.21 N [id number]& PELVIS W/O [id number] 17:36:28CT ABDOMEN AND PELVIS WITHOUT CONTRAST.CLINICAL HISTORY: [...]
--- NOTE | 2022-06-17 19:10 | ER ---
Nurse's Notes [facility] Name: Rico Mcneill Age: 52 yrs Sex: Male : 1970 Arrival Date: 06/17/2022 Time: 18:31 Bed 10 Private MD: Diagnosis: Encounter for attention to colostomy Presentation: 06/17 18:44 Chief complaint: Patient states: Needing colostomy bag changed/ additional supplies. ss Coronavirus screen: Client denies travel out of the [place] in the last 14 days. Ebola Screen: Patient denies exposure to infectious person. Patient denies travel to an Ebola-affected area in the 21 days before illness onset. Initial Sepsis Screen: Does the patient meet any 2 criteria? No. Patient's initial sepsis screen is negative. Does the patient have a suspected source of infection? No. Patient's initial sepsis screen is negative. Risk Assessment: Do you want to hurt yourself or someone else? Patient reports no desire to harm self or others. Onset of symptoms was June 17, 2022. 18:44 Method Of Arrival: Ambulatory ss 18:44 Acuity: OCTAVIO 5 ss Triage Assessment: 20:11 General: Appears in no apparent distress. comfortable, Behavior is calm, cooperative, kr3 appropriate for age. Pain: Denies pain. Historical: - Allergies: 18:45 NKDA; ss - PMHx: 18:45 ileostomy; ss - PSHx: 18:45 Small bowel resection with ileostomy; ss - Immunization history:: Client reports receiving the 2nd dose of the Covid vaccine. - Social history:: Smoking status: Patient reports use of chewing tobacco. Screenin:11 Abuse screen: Denies threats or abuse. Nutritional screening: No deficits noted. kr3 Tuberculosis screening: No symptoms or risk factors identified. Fall Risk None identified. Assessment: 20:11 Reassessment: No changes from previously documented assessment. Patient is alert, kr3 oriented x 3, equal unlabored respirations, skin warm/dry/pink. Vital Signs: 18:44 Resp 16; Weight 65.77 kg; Height 6 ft. 1 in. (185.42 cm); Pain 0/10; ss 18:45 BP 108 / 80; Pulse 72; Resp 18; Temp 98.4; Pulse Ox 98% on R/A; tm3 18:44 Body Mass Index 19.13 (65.77 kg, 185.42 cm) ED Course: 18:31 Patient arrived in ED. mr 18:45 Avtar Fierro NP is PHCP. pm1 18:45 Nimisha Hicks MD is Attending Physician. pm1 18:45 Triage completed. 18:45 Arm band placed on right wrist. 19:00 Bed in low position. Call light in reach. Side rails up X 1. kr3 19:06 Leighann Pelaez, BRITTNY is Primary Nurse. kr3 20:12 No provider procedures requiring assistance completed. Patient did not have IV access kr3 during this emergency room visit. Administered Medications: No medications were administered Medication: 20:12 VIS not applicable for this client. kr3 Outcome: 19:09 Discharge ordered by . pm1 20:12 Discharged to home ambulatory. kr3 20:12 Condition: stable 20:12 Discharge instructions given to patient, Instructed on discharge instructions, Demonstrated understanding of instructions. 20:12 Patient left the ED. kr3 Signatures: Rocky Heller Mary mr Eryn Aceves, RN RN Avtar Fierro NP BAR MACHINE OPERATOR MULTIPLE SPINDLE pm1 Leighann Pelaez, BRITTNY RN kr3
--- NOTE | 2022-06-17 19:10 | EDPHYS ---
Physician Documentation [facility] Name: Rico Mcneill Age: 52 yrs Sex: Male : 1970 Arrival Date: 06/17/2022 Time: 18:31 Bed 10 Private MD: ED Physician Nimisha Hicks HPI: 06/17 19:09 This 52 yrs old Male presents to ER via Ambulatory with complaints of Colostomy bag pm1 problem. 19:09 Onset: The symptoms/episode began/occurred today. Associated signs and symptoms: The pm1 patient has no apparent associated signs or symptoms. The patient has experienced similar episodes in the past, multiple times. The patient has not recently seen a physician. Patient with no other complaint except needing a new colostomy bag. Historical: - Allergies: 18:45 NKDA; ss - PMHx: 18:45 ileostomy; ss - PSHx: 18:45 Small bowel resection with ileostomy; ss - Immunization history:: Client reports receiving the 2nd dose of the Covid vaccine. - Social history:: Smoking status: Patient reports use of chewing tobacco. ROS: 19:09 Constitutional: Negative for fever, chills, and weight loss, Cardiovascular: Negative pm1 for chest pain, palpitations, and edema, Respiratory: Negative for shortness of breath, cough, wheezing, and pleuritic chest pain, Abdomen/GI: Negative for abdominal pain, nausea, vomiting, diarrhea, and constipation, Skin: Negative for injury, rash, and discoloration, Neuro: Negative for headache, weakness, numbness, tingling, and seizure. 19:09 All other systems are negative. Exam: 19:09 Constitutional: This is a well developed, well nourished patient who is awake, alert, pm1 and in no acute distress. Head/Face: Normocephalic, atraumatic. 19:09 Back: No spinal tenderness. No costovertebral tenderness. Full range of motion. Skin: Warm, dry with normal turgor. Normal color with no rashes, no lesions, and no evidence of cellulitis. MS/ Extremity: Pulses equal, no cyanosis. Neurovascular intact. Full, normal range of motion. 19:09 Cardiovascular: Exam negative for acute changes, Rate: normal, Rhythm: regular, Pulses: no pulse deficits are appreciated. 19:09 Respiratory: Exam negative for acute changes, respiratory distress, shortness of breath. 19:09 Abdomen/GI: Inspection: visibly worn but intact colostomy bag present to the right side of lower abdomen. No signs of infection or redness to ostomy. Prolapsed stoma without any bleeding or signs of infection. 19:09 Neuro: Exam negative for acute changes, Orientation: is normal, Mentation: is normal, Motor: is normal, moves all fours. Vital Signs: 18:44 Resp 16; Weight 65.77 kg; Height 6 ft. 1 in. (185.42 cm); Pain 0/10; ss 18:45 BP 108 / 80; Pulse 72; Resp 18; Temp 98.4; Pulse Ox 98% on R/A; tm3 18:44 Body Mass Index 19.13 (65.77 kg, 185.42 cm) ss MDM: 18:46 Patient medically screened. pm1 19:09 Data reviewed: vital signs. Data interpreted: Pulse oximetry: on room air is 98 %. pm1 Interpretation: normal. Counseling: I had a detailed discussion with the patient and/or guardian regarding: the historical points, exam findings, and any diagnostic results supporting the discharge/admit diagnosis, the need for outpatient follow up, a family practitioner, to return to the emergency department if symptoms worsen or persist or if there are any questions or concerns that arise at home. Administered Medications: No medications were administered Disposition Summary: 06/17/22 19:09 Discharge Ordered Location: Home pm1 Problem: new pm1 Symptoms: have improved pm1 Condition: Stable pm1 Diagnosis - Encounter for attention to colostomy pm1 Followup: pm1 - With: Emergency Department - When: As needed - Reason: Worsening of condition Followup: pm1 - With: Private Physician - When: 2 - 3 days - Reason: Recheck today's complaints, Continuance of care, Re-evaluation by your physician Discharge Instructions: - Discharge Summary Sheet pm1 - Colostomy Home Guide, Adult pm1 Forms: - Medication Reconciliation Form pm1 - Thank You Letter pm1 - Antibiotic Education pm1 - Prescription Opioid Use pm1 Signatures: Eryn Aceves RN RN ss Avtar Fierro NP CUSTODIAN pm1
[2022-06-17 20:19] VITALS: BP 108/80; TEMP 98.4; O2SAT 98
== END 2022-06-17 20:12 | disposition home or self-care (01) ==
LOC: ER 18:28
DX: Z43.3 Encounter for attention to colostomy (principal)
CPT/HCPCS: 99281

== ENCOUNTER 2022-06-18 07:45 | Emergency (ER) | payer SELFPAY ==
--- OUTSIDE RECORDS SUMMARY | 2022-06-18 07:59 | XMS REPORT | Continuity of Care Document ---
:1970 Author Organization [facility] t Address [address] [place] [address] Care Team Providers Name Role Phone UNKNOWN, REFFERING Primary Care Physician Unavailable Coco Nova Attending Clinician Unavailable Mark Perea Attending Clinician Unavailable Steve Urias Attending Clinician Unavailable YESSI RAMOS Attending Clinician Unavailable NELSON GARCIA Attending Clinician Unavailable KENDRA CARDENAS Attending Clinician Unavailable LEÓN EARL Attending Clinician Unavailable Elisha CAPONE, Aryan Garrison Attending Clinician [phone] Marty CAPONE, Dee Dee Nelsno Attending Clinician Shiela CAPONE, Romie Attending Clinician Mick CAPONE, Pao Emerson Attending Clinician Anya CAPONE, León Shaw Attending Clinician [phone] Teddy Carbajal MD Attending Clinician Bernabe Calvert [...] Clinician Lindsey Escobar, Steve Santana Attending Clinician [phone] KARIN BASSETT Attending Clinician Unavailable Bert [...] Number Effective Date Expiration Date S kashif [employer] [id number] 2019 ADMIT 00:00:00 Problems Condition Condition Condition Status Onset Resolution Last Treating Co mments Source Name Details Category Date Date Treatment Clinician Date Lightheade Lightheade Disease Active [facility] 00 [place] Altered Altered Disease Active [facility] bowel bowel 5-29 [facility] eliminatio eliminatio 00:00: n due to n due to 00 intestinal intestinal ostomy ostomy Acute Acute Disease Active [place] kidney kidney 5-20 [facility] injury injury 00:00: 00 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 [facility] resection resection 00:00: Medi mariusz 00 Center Intestinal Intestinal Disease Active [facility] stoma stoma 7-25 [facility] prolapse prolapse 00:00: Medica l 00 [place] Disorder Disorder Disease Active [facility] stoma of stoma 9-15 Health 00:00: 00 Dehydratio Dehydratio Disease Active H arris n n Health Encounter Encounter Disease Active Comp[facility] for ostomy for ostomy [facility] care education education ALMA (acute ALMA (acute Disease Resolve 2022-02-20 2022-02-20 [facility] kidney kidney d 02-18 00:00:00 10:32:00 Health injury) injury) 00:00: 00 Hypotensio Hypotensio Disease Resolve 2022-02-20 2022-02-20 Maged n n d 00:00:00 10:31:59 Health High High Disease Resolve 2022-02-11 2022-02-11 [facility] output output d 6- 00:00:00 10:54:06 Health ileostomy ileostomy 00:00: 00 [...] U [facility] 6- [facility] s 00:00: [facility] 00 [facility] No Known DA Active U 2020-08 [facility] 1-29 [facility] 00:00: d 00 [facility] No Known DA Active U [facility] 9-05 Clear s 00:00: [facility] No Known DA Active U [facility] 9-05 Clear s 00:00: [facility]hatt [facility] No Known DA Active U [facility] 7-03 Clear s 00:00: [facility]hatt [facility] No Known DA Active U [facility]ie 5-14 Clear s 00:00: Bhatt [facility] No Known DA Active U [...] intake 2022-02-18 2022-02-18 Current drinker of [facility] 00:00:00 00:00:00 alcohol (finding) History SDMT 2019-03-17 2019-03-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 [facility] Alcohol Comment 00:00:00 00:00:00 Medical C enter Tobacco use and 2017-04-14 2017-04-14 User of smokeless [facility] exposure 00:00:00 00:00:00 tobacco History [facility] Food 2017-04-14 2017-04-14 1 [facility] Worry 00:00:00 00:00:00 History [facility] Food 2017-04-14 2017-04-14 1 [facility] Scarcity 00:00:00 00:00:00 Sex Ass[birth year] At [birth year] [facility] alth 00:00:00 00:00:00 Smoking Status Start Date Stop Date Source Never smoker [facility] Medications Ordered Filled Start Stop Current [...] intestinal ostomy loperamide 2021- No Altered 4mg Q.40791849 Take 2 [facility] (IMODIUM) 2 02-20-30 bowel [id number] capsules Health mg capsule 00:00: 23:59 elimination [...] intestinal ostomy loperamide 2021- No Altered 4mg Q.18808928 Take 2 [facility] (IMODIUM) 2 02-20-30 bowel [id number] capsules Health mg capsule 00:00: 23:59 elimination [...] intestinal ostomy loperamide 2021- No Altered 4mg Q.32552673 Take 2 [facility] (IMODIUM) 2 02-2030 bowel [id number] capsules Health mg capsule 00:00: 23:59 elimination [...] intestinal ostomy loperamide 2021- No Altered 4mg Q.22609992 Take 2 [facility] (IMODIUM) 2 02-20 bowel [id number] capsules Health mg capsule 00:00: 23:59 elimination [...] intestinal ostomy loperamide 2021- No Altered 4mg Q.59978278 Take 2 [facility] (IMODIUM) 2 02-20-30 bowel [id number] capsules Health mg capsule 00:00: 23:59 elimination 3D by mouth 3 00 :00 due to times intestinal daily ostomy (before meals) for 30 days tamsulosin 2021- No Acute .4mg Take 1 Compa ris (FLOMAX) 02-20-30 kidney capsule by He alth 0.4 mg 00:00: 23:59 injury mouth capsule 00 :00 every evening for 30 days psyllium 2021- No Altered 1{packe Take 1 [facility] (METAMUCIL) 02-20- bowel t} Packet by H ealth 6 gram PwPk 00:00: 23:59 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 loperamide 2021- No Altered 4mg Q.74665524 Take 2 [facility] (IMODIUM) 2 02-20 bowel [id number] capsules Health mg capsule 00:00: 23:59 elimination [...] intestinal ostomy loperamide 2021- No Altered 4mg Q.18850795 Take 2 [facility] (IMODIUM) 2 02-20 bowel [id number] capsules Health mg capsule 00:00: 23:59 elimination [...] intestinal ostomy loperamide 2021- No Altered 4mg Q.67333855 Take 2 [facility] (IMODIUM) 2 02-20-30 bowel [id number] capsules Health mg capsule 00:00: 23:59 elimination [...] intestinal ostomy loperamide 2021- No Altered 4mg Q.72298059 Take 2 [facility] (IMODIUM) 2 02-20-30 bowel [id number] capsules Health mg capsule 00:00: 23:59 elimination [...] intestinal ostomy loperamide 2021- No Altered 4mg Q.23120530 Take 2 [facility] (IMODIUM) 2 02-20-30 bowel [id number] capsules Health mg capsule 00:00: 23:59 elimination [...] intestinal ostomy loperamide 2021- No Altered 4mg Q.23753790 Take 2 [facility] (IMODIUM) 2 02-20 bowel [id number] capsules Health mg capsule 00:00: 23:59 elimination 3D by mouth 3 00 :00 due to times intestinal daily ostomy (before meals) for 30 days tamsulosin 2021- No Acute .4mg Take 1 Compa ris (FLOMAX) 02-20 kidney capsule by He jerzy 0.4 mg 00:00: 23:59 injury mouth capsule [...] [facility] (METAMUCIL) 02-1130 bowel t} [facility] by [facility] 6 gram PwPk 00:00: 00:00 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 psyllium 2021- No Altered 1{packe Take 1 [facility] (METAMUCIL) 02-1130 bowel t} Packet by [facility] 6 gram PwPk 00:00: 00:00 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 psyllium 2021- No Altered 1{packe Take 1 [facility] (METAMUCIL) 02-11 bowel t} Packet by [facility] 6 gram PwPk 00:00: 00:00 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 psyllium 2021- No Altered 1{packe Take 1 [facility] (METAMUCIL) 02-11 bowel t} Packet by [facility] 6 gram PwPk 00:00: 00:00 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 psyllium 2021- No Altered 1{packe Take 1 [facility] (METAMUCIL) 02-11 bowel t} Packet by [facility] 6 gram PwPk 00:00: 00:00 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 ascorbic 2021- No Altered 250mg QD Take 1 [facility] acid, 01-21 bowel tablet by [facility] vitamin C, 00:00: 23:59 elimination mouth 250 mg 00 :00 due to daily for tablet intestinal 60 days ostomy magnesium 2021- No Altered 800mg Q.5D Take 2 H arris oxide 01-21- bowel tablets by [facility] (MAG-OX) 00:00: 23:59 elimination mouth 2 400 mg 00 :00 due to times (241.3 mg intestinal daily for magnesium) ostomy 60 days tablet multivitami 2021- No Altered 1{tbl} QD Take 1 [facility] n with 01-21 bowel tablet by [facility] folic acid 00:00: 23:59 elimination mouth (THERA) 400 00 :00 due to daily for mcg tablet intestinal 60 days ostomy ascorbic 2021-2021- No Altered 250mg QD Take 1 [facility] acid, -23 03-30 bowel tablet by [facility] vitamin C, 00:00: 23:59 elimination mouth 250 mg 00 :00 due to daily for tablet intestinal 60 days ostomy magnesium 2021-2021- No Altered 800mg Q.5D Take 2 H arris oxide 5- 07-30 bowel tablets by [facility] (MAG-OX) 00:00: 23:59 elimination mouth 2 400 [...] Momin rris acid, 01-21-30 bowel tablet by [facility] vitamin C, 00:00: 23:59 elimination mouth 250 [...] rris acid, -23 03-30 bowel tablet by Health vitamin C, 00:00: [...] H arris oxide 01-21-30 bowel tablets by [facility] (MAG-OX) 00:00: 23:59 elimination mouth 2 400 [...] 250mg QD Take 1 [facility] acid, 01-21- bowel tablet by Health vitamin C, 00:00: [...] arris oxide 5- 07-30 bowel tablets by [facility] (MAG-OX) 00:00: 23:59 elimination mouth 2 400 [...] Momin rris acid, 01-21-30 bowel tablet by [facility] vitamin C, 00:00: 23:59 elimination mouth 250 [...] [facility] n with 01-21-30 bowel tablet by [facility] folic acid 00:00: 23:59 elimination mouth (THERA) 400 00 :00 due to daily for mcg tablet intestinal 60 days ostomy ascorbic 2021- No Altered 250mg QD Take 1 [facility] acid, 01-21-30 bowel tablet by [facility] vitamin C, 00:00: 23:59 elimination mouth 250 mg 00 :00 due to daily for tablet intestinal 60 days ostomy magnesium 2021- No Altered 800mg Q.5D Take 2 H arris oxide 5- 07-30 bowel tablets by [facility] (MAG-OX) 00:00: 23:59 elimination mouth 2 400 [...] Momin rris acid, 01-21 bowel tablet by [facility] vitamin C, 00:00: 23:59 elimination mouth 250 mg 00 :00 due to daily for tablet intestinal 60 days ostomy magnesium 2021- No Altered 800mg Q.5D Take 2 H arris oxide 01-21 bowel tablets by [facility] (MAG-OX) 00:00: 23:59 elimination mouth 2 400 [...] Momin [facility]ris acid, 01-21 bowel tablet by [facility] vitamin C, 00:00: 23:59 elimination mouth 250 mg 00 :00 due to daily for tablet intestinal 60 days ostomy magnesium 2021- No Altered 800mg Q.5D Take 2 H arris oxide 01-21 bowel tablets by [facility] (MAG-OX) 00:00: 23:59 elimination mouth 2 400 mg 00 :00 due to times (241.3 mg intestinal daily for magnesium) ostomy 60 days tablet multivitami 2021- No Altered 1{tbl} QD Take 1 [facility] n with 01-21 bowel tablet by Health folic acid 00:00: 23:59 elimination mouth (THERA) 400 00 :00 due to daily for mcg tablet intestinal 60 days ostomy ferrous 2021- No Altered 325mg QD Take 1 Compa ris sulfate 325 01-21 bowel tablet by ealth mg (65 mg 00:00: 00:00 elimination mouth iron) 00 :00 due to daily for tablet intestinal 60 days ostomy loperamide 2021- No Altered 4mg Q.08882710 Take 2 [facility] (IMODIUM) 2 01-21 bowel [id number] capsules Health mg capsule 00:00: 00:00 elimination [...] days ostomy loperamide 2021- No Altered 4mg Q.79235460 Take 2 [facility] (IMODIUM) 2 01-21- bowel [id number] capsules Health mg capsule 00:00: 00:00 elimination [...] days ostomy loperamide 2021- No Altered 4mg Q.04940422 Take 2 [facility] (IMODIUM) 2 01-2130 bowel [id number] capsules Health mg capsule 00:00: 00:00 elimination [...] days ostomy loperamide 2021- No Altered 4mg Q.47393795 Take 2 [facility] (IMODIUM) 2 01-21 bowel [id number] capsules Health mg capsule 00:00: 00:00 elimination [...] days ostomy loperamide 2021- No Altered 4mg Q.31720123 Take 2 [facility] (IMODIUM) 2 01-21 bowel [id number] capsules Health mg capsule 00:00: 00:00 elimination [...] days ostomy loperamide 2021- No Altered 4mg Q.19973474 Take 2 [facility] (IMODIUM) 2 01-21 bowel [id number] capsules Health mg capsule 00:00: 00:00 elimination [...] days ostomy loperamide 2021- No Altered 4mg Q.55861315 Take 2 [facility] (IMODIUM) 2 01-21 bowel [id number] capsules Health mg capsule 00:00: 00:00 elimination [...] days ostomy loperamide 2021- No Altered 4mg Q.16385421 Take 2 [facility] (IMODIUM) 2 01-21 bowel [id number] capsules Health mg capsule 00:00: 00:00 elimination [...] days ostomy loperamide 2021- No Altered 4mg Q.17960316 Take 2 [facility] (IMODIUM) 2 01-21 bowel [id number] capsules Health mg capsule 00:00: 00:00 elimination [...] 60 days ostomy loperamide No Altered 4mg Q.54944120 Take 2 [facility] (IMODIUM) 2 01-21 bowel [id number] capsules Health mg capsule 00:00: 00:00 elimination [...] days ostomy loperamide 2021- No Altered 4mg Q.83070493 Take 2 [facility] (IMODIUM) 2 01-21 bowel [id number] capsules Health mg capsule 00:00: 00:00 elimination 3D by mouth 3 00 :00 due to times intestinal daily ostomy (before meals) for 30 days tamsulosin 2021- No Acute .4mg Take 1 Compa ris (FLOMAX) 01-21 kidney capsule by He alth 0.4 mg 00:00: 00:00 injury mouth capsule 00 :00 every evening for 30 days psyllium 2021- No Altered 1{packe Q.38952271 Take 1 [facility] (METAMUCIL) 01-21 bowel t} [id number] Packet by [facility] 6 gram PwPk 00:00: 00:00 elimination 3D mouth 3 00 :00 due to times intestinal daily ostomy (before meals) for 90 days psyllium 2021- No Altered 1{packe Q.65561165 Take 1 [facility] (METAMUCIL) 01-21 bowel t} [id number] Packet by [facility] 6 gram PwPk 00:00: 00:00 elimination 3D mouth 3 00 :00 due to times intestinal daily ostomy (before meals) for 90 days psyllium 2021- No Altered 1{packe Q.94651705 Take 1 [facility] (METAMUCIL) 01-21 bowel t} [id number] Packet by [facility] 6 gram PwPk 00:00: 00:00 elimination 3D mouth 3 00 :00 due to times intestinal daily ostomy (before meals) for 90 days psyllium 2021- No Altered 1{packe Q.29446613 Take 1 [facility] (METAMUCIL) 01-21 bowel t} [id number] Packet by [facility] 6 gram PwPk 00:00: 00:00 elimination 3D mouth 3 00 :00 due to times intestinal daily ostomy (before meals) for 90 days psyllium 2021- No Altered 1{packe Q.[id number] Take 1 [facility] (METAMUCIL) 01-21 bowel t} [id number] Packet by [facility] 6 gram PwPk 00:00: 00:00 elimination 3D mouth 3 00 :00 due to times intestinal daily ostomy (before meals) for 90 days psyllium 2021- No Altered 1{packe Q.61737729 Take 1 [facility] (METAMUCIL) 01-21 bowel t} [id number] Packet by [facility] 6 gram PwPk 00:00: 00:00 elimination 3D mouth 3 00 :00 due to times intestinal daily ostomy (before meals) for 90 days psyllium 2021- No Altered 1{packe Q.00512838 Take 1 [facility] (METAMUCIL) 01-21 bowel t} [id number] Packet by [facility] 6 gram PwPk 00:00: 00:00 elimination 3D mouth 3 00 :00 due to times intestinal daily ostomy (before meals) for 90 days psyllium 2021- No Altered 1{packe Q.41720596 Take 1 [facility] (METAMUCIL) 01-21 bowel t} [id number] Packet by [facility] 6 gram PwPk 00:00: 00:00 elimination 3D mouth 3 00 :00 due to times intestinal daily ostomy (before meals) for 90 days psyllium 2021- No Altered 1{packe Q.44037385 Take 1 [facility] (METAMUCIL) 01-21 bowel t} [id number] Packet by [facility] 6 gram PwPk 00:00: 00:00 elimination 3D mouth 3 00 :00 due to times intestinal daily ostomy (before meals) for 90 days psyllium 2021- No Altered 1{packe Q.[id number] Take 1 [facility] (METAMUCIL) 01-21 bowel t} [id number] Packet by [facility] 6 gram PwPk 00:00: 00:00 elimination 3D mouth 3 00 :00 due to times intestinal daily ostomy (before meals) for 90 days psyllium 2021- No Altered 1{packe Q.[id number] Take 1 [facility] (METAMUCIL) 01-21 bowel t} [id number] Packet by [facility] 6 gram PwPk 00:00: 00:00 elimination 3D mouth 3 00 :00 due to times intestinal daily ostomy (before meals) for 90 days tamsulosin 2021- No Benign .4mg QD Take 1 [facility] (FLOMAX) 01-12 prostatic capsule by [facility] 0.4 mg 00:00: 00:00 hyperplasia mouth capsule 00 :00 , daily. unspecified Start on whether 01/12/2022. lower urinary tract symptoms present tamsulosin 2021- No Benign .4mg QD Take 1 [facility] (FLOMAX) 01-12 prostatic capsule by [facility] 0.4 mg 00:00: 00:00 hyperplasia mouth capsule 00 :00 , daily. unspecified Start on whether 01/12/2022. lower urinary tract symptoms present tamsulosin 2021-2021- No Benign .4mg QD Take 1 [facility] (FLOMAX) 01-12-31 prostatic capsule by Health 0.4 mg 00:00: 00:00 hyperplasia mouth capsule 00 :00 , daily. unspecified Start on whether 01/12/2022. lower urinary tract symptoms present tamsulosin 2021-2021- No Benign .4mg QD Take 1 [facility] (FLOMAX) 01-12-31 prostatic capsule by Health 0.4 mg 00:00: 00:00 hyperplasia mouth capsule 00 :00 , daily. unspecified Start on whether 01/12/2022. lower urinary tract symptoms present tamsulosin 2021-2021- No Benign .4mg QD Take 1 [facility] (FLOMAX) 01-12- prostatic capsule by [facility] 0.4 mg 00:00: 00:00 hyperplasia mouth capsule 00 :00 , daily. unspecified Start on whether 01/12/2022. lower urinary tract symptoms present tamsulosin 2021-2021- No Benign .4mg QD Take 1 [facility] (FLOMAX) 01-12- prostatic capsule by [facility] 0.4 mg 00:00: 00:00 hyperplasia mouth capsule 00 :00 , daily. unspecified Start on whether 01/12/2022. lower urinary tract symptoms present tamsulosin 2021-2021- No Benign .4mg QD Take 1 [facility] (FLOMAX) 01-12-31 prostatic capsule by [facility] 0.4 mg 00:00: 00:00 hyperplasia mouth capsule 00 :00 , daily. unspecified Start on whether 01/12/2022. lower urinary tract symptoms present tamsulosin 2021-2021- No Benign .4mg QD Take 1 [facility] (FLOMAX) 01-12-31 prostatic capsule by [facility] 0.4 mg 00:00: 00:00 hyperplasia mouth capsule 00 :00 , daily. unspecified Start on whether 01/12/2022. lower urinary tract symptoms present tamsulosin 2021-2021- No Benign .4mg QD Take 1 [facility] (FLOMAX) 01-12-31 prostatic capsule by [facility] 0.4 mg 00:00: 00:00 hyperplasia mouth capsule [...] total) by Center capsule mouth daily. thiamine, 2017-0 2022- No Alcohol 100mg QD Take 1 H arris B-1, 100 mg 8 05-21 abuse, in tablet by Health tablet 00:00: 00:00 remission mouth 00 :00 daily. multivitami 2021- No Alcohol 1{tbl} QD Take 1 [facility] n (DAILY 04-14 05-21 abuse, in tablet by [employer]) 00:00: 00:00 remission mouth tablet 00 :00 daily. 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 multivitami 2021- No Alcohol 1{tbl} QD Take 1 [facility] n (DAILY 04-14-21 abuse, in tablet by [employer]) 00:00: 00:00 remission mouth tablet 00 :00 daily. thiamine, 2021- No Alcohol 100mg QD Take 1 H arris B-1, 100 mg 04-14-21 abuse, in tablet by Health tablet 00:00: 00:00 remission mouth 00 :00 daily. multivitami 2021- No Alcohol 1{tbl} QD Take 1 [facility] n (DAILY 04-14-21 abuse, in tablet by [employer]) 00:00: 00:00 remission mouth tablet 00 :00 daily. thiamine, 2021- No Alcohol 100mg QD Take 1 H arris B-1, 100 mg 04-14-21 abuse, in tablet by Health tablet 00:00: 00:00 remission mouth 00 :00 daily. multivitami 2021- No Alcohol 1{tbl} QD Take 1 [facility] n (DAILY 04-14 05-21 abuse, in tablet by [facility] [employer]) 00:00: 00:00 remission mouth tablet 00 :00 [...] (DAILY 04-14 05-21 abuse, in tablet by [facility] VITES) 00:00: 00:00 remission mouth tablet 00 :00 daily. thiamine, 2021- No Alcohol 100mg QD Take 1 H arris B-1, 100 mg 04-14 05-21 abuse, in tablet by Health tablet 00:00: 00:00 remission mouth 00 :00 daily. multivitami 2021- No Alcohol 1{tbl} QD Take 1 [facility] n (DAILY 04-14-21 abuse, in tablet by [employer]) 00:00: 00:00 remission mouth tablet 00 :00 daily. thiamine, 2021- No Alcohol 100mg QD Take 1 H arris B-1, 100 mg 04-14-21 abuse, in tablet by Health tablet 00:00: 00:00 remission mouth 00 :00 daily. multivitami 2021- No Alcohol 1{tbl} QD Take 1 [facility] n (DAILY 04-14-21 abuse, in tablet by [facility] [employer]) 00:00: 00:00 remission mouth tablet 00 :00 daily. thiamine, 2021- No Alcohol 100mg QD Take 1 H arris B-1, 100 mg 04-14-21 abuse, in tablet by Health tablet 00:00: 00:00 remission mouth 00 :00 daily. multivitami 2021- No Alcohol 1{tbl} QD Take 1 [facility] n (DAILY 04-14 05-21 abuse, in tablet by [facility] VITES) 00:00: 00:00 remission mouth tablet 00 :00 daily. 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 multivitami 2021- No Alcohol 1{tbl} QD Take 1 [facility] n (DAILY 04-14 abuse, in tablet by Health [place] [employer]) 00:00: 00:00 remission mouth tablet 00 :00 daily. 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 multivitami 2021- No Alcohol 1{tbl} QD Take 1 [facility] n (DAILY 04-14 abuse, in tablet by [employer]) 00:00: 00:00 remission mouth tablet 00 :00 daily. Immunizations Ordered Immunization Filled Immunization Date Status Commen ts Source Name Name [facility] 2017-04-14 Completed [facility] 00:00:00 [facility] 2017-04-14 Completed [facility] 00:00:00 PPD 2017-04-14 [...] Systolic blood 2022-03-13 15:33:00 94 mm[Hg] [facility] pressure Diastolic blood 2022-03-13 15:33:00 62 mm[Hg] [facility] pressure Heart rate 2022-03-13 15:33:00 109 /min Maged cabrera Body temperature 2022-03-13 15:33:00 36.67 Tasia [facility] Respiratory rate 2022-03-13 15:33:00 20 /min Alex is [facility] Body height 2022-03-13 15:33:00 185.4 cm [facility] Body weight 2022-03-13 15:33:00 66.679 kg [facility] BMI 2022-03-13 15:33:00 19.39 kg/m2 [facility] Oxygen saturation in 2022-03-13 15:33:00 100 /min [facility] Arterial blood by Pulse oximetry Systolic blood 2022-03-09 11:00:00 107 mm[Hg] [facility] Diastolic blood 2022-03-09 11:00:00 66 mm[Hg] [facility] Heart rate 2022-03-09 11:00:00 58 /min [facility] Body temperature 2022-03-09 11:00:00 36.22 Tasia [facility] Respiratory rate 2022-03-09 11:00:00 16 /min [facility] Oxygen saturation in 2022-03-09 11:00:00 100 /min [facility] Arterial blood by Medical Ce nter Pulse oximetry Body height 2022-03-06 12:05:00 185.4 cm [facility] Body weight 2022-03-06 12:05:00 65.772 kg [facility] BMI 2022-03-06 12:05:00 19.13 kg/m2 [facility] Procedures Procedure Date / Time Performing Clinician Source Performed BASIC METABOLIC PANEL 2022-03-07 05:51:00 Romie Kuo [facility] HEPATIC FUNCTION PANEL 2022-03-07 05:51:00 Romie Kuo [facility] CBC W/PLT COUNT & AUTO 2022-03-07 05:51:00 Romie Kuo [facility] CBC W/PLT COUNT & AUTO 2022-03-07 05:51:00 Romie Kuo [facility] US RENAL COMPLETE 2022-03-06 18:23:00 Romie Kuo [facility] SARS-COV2/RT-PCR ([facility] & 2022-03-06 17:36:00 Eduar KuoebenezerPhilippAcacia [facility] REF LABS) [facility] TSH/FREE T4 IF INDICATED 2022-03-06 14:18:00 Aryan Tello [facility] [facility] T[facility], FREE 2022-03-06 14:18:00 Aryan Tello [facility] ED ECG INTERPRETATION 2022-03-06 13:48:12 Aryan Tello [facility] XR CHEST 1 VIEW PORTABLE 2022-03-06 13:42:00 Aryan Tello [facility] / BEDSIDE [facility] B-TYPE NATRIURETIC FACTOR 2022-03-06 13:23:00 Aryan Tello [facility] (BNP) [facility] CBC W/PLT COUNT & AUTO 2022-03-06 13:23:00 Aryan Tello [facility] DIFFERENTIAL [facility] COMPREHENSIVE METABOLIC 2022-03-06 13:23:00 Aryan Tello [facility] PANEL [facility] HIGH SENSITIVITY TROPONIN 2022-03-06 13:23:00 Aryan Tello CH, I [facility] MAGNESIUM 2022-03-06 13:23:00 Aryan Tello [facility] PHOSPHORUS 2022-03-06 13:23:00 Aryan Tello [facility] LACTIC ACID, VENOUS 2022-03-06 13:23:00 Aryan Tello [facility] CREATINE KINASE (CK) 2022-03-06 13:23:00 Aryan Tello [facility] CBC W/PLT COUNT & AUTO 2022-03-06 13:23:00 Aryan Tello [facility] DIFFERENTIAL [facility] ECG 12-LEAD 2022-03-06 12:12:56 Unknown, Hl7 [facility] ECG 12-LEAD 2022-03-06 12:12:56 Unknown, Hl7 [facility] ECG 12-LEAD 2022-03-06 12:12:56 Unknown, Hl7 [facility] EKG-SCANNED 2022-03-06 00:00:00 Provider, Jacqui [facility] CBC (WITHOUT 2022-02-20 05:10:00 Rufino Lazaro DIFFERENTIAL) BASIC METABOLIC PANEL 2022-02-20 05:10:00 Rufino Lazaro MAGNESIUM 2022-02-20 05:10:00 Rufino Lazaro PHOSPHORUS 2022-02-20 05:10:00 Rufino Lazaro INFUSION PUMP 2022-02-19 19:03:50 Rufino Lazaro COMPREHENSIVE METABOLIC 2022-02-19 06:35:00 [facility]FF 2022-02-19 06:35:00 Kobe Blake alth PHOSPHORUS 2022-02-19 06:35:00 Kobe Blake alth CBC 2022-02-19 06:35:00 Kobe Blake alth URINALYSIS W/REFLEX TO 2022-02-19 00:34:00 Kobe Blake [facility] URINE CULTURE URINALYSIS 2022-02-19 00:34:00 Chadd Palacios URINE CULTURE COLLECTION 2022-02-19 00:34:00 Chadd Palacios [facility] KIT SARS-COV-2, FLU A/B, RSV 2022-02-18 19:00:00 Chadd Palacios [facility] CORONAVIRUS, COVID-19, 2022-02-18 19:00:00 Chadd Palacios [facility] OLENA XRAY CHEST 1 VIEW 2022-02-18 15:23:00 Roz Scales [facility] CONSULT CLINICAL CASE 2022-02-18 14:50:50 Roz Scales [facility] MANAGEMENT (RN/SW) CBC/DIFF 2022-02-18 14:16:00 Susana Cooley BASIC METABOLIC PANEL 2022-02-18 14:16:00 Susana Cooley MAGNESIUM 2022-02-18 14:16:00 [facility]ana [facility] PHOS[facility]US 2022-02-18 14:16:00 Albab, Susana [facility] CREATINE KINASE (CK) 2022-02-18 14:16:00 AlbabSusana [facility] CBC 2022-02-18 14:16:00 AlbabSusana [facility] BASIC METABOLIC PANEL 2022-02-11 03:34:00 YinMeghan [facility] MAGNESIUM 2022-02-11 03:34:00 [facility] [facility] PHOSPHORUS 2022-02-11 03:34:00 [facility] [facility] CBC (WITHOUT 2022-02-11 03:34:00 [place] [facility] DIFFERENTIAL) CBC/DIFF 2022-02-10 03:39:00 [facility] 2022-02-10 03:39:00 [facility] 2022-02-10 03:39:00 [facility] TH[facility]RO[facility] 2022-02-10 03:39:00 [facility] HORMONE (TSH) FREE T4 2022-02-10 03:39:00 [facility] [facility] CBC/DIFF 2022-02-09 04:38:00 [facility] PANEL 2022-02-09 04:38:[address] [facility] CBC 2022-02-09 04:38:00 [facility] CORTISOL, TOTAL 2022-02-08 11:37:00 [facility] GLUCOSE POC 2022-02-08 08:07:00 [facility] CBC (WITHOUT 2022-02-08 04:00:00 [facility] DIFFERENTIAL) COMPREHENSIVE METABOLIC 2022-02-08 04:00:00 [facility] PANEL PHOSPHORUS 2022-02-08 04:00:00 [facility] MAGNESIUM 2022-02-08 04:00:00 [facility] PT/INR 2022-02-08 04:00:00 Mari Meier ealt URINALYSIS W/REFLEX TO 2022-02-07 18:06:00 Areli Arciniega [facility] URINE CULTURE URINALYSIS 2022-02-07 18:06:00 Areli Arciniega alth URINE CULTURE COLLECTION 2022-02-07 18:06:00 Areli Arciniega [facility] KIT ELECTROLYTES, URINE 2022-02-07 18:06:00 Jyoti Carrillo [facility] OSMOLALITY, URINE 2022-02-07 18:06:00 [facility] SARS-COV-2, FLU A/B, RSV 2022-02-07 18:05:00 Jyoti Carrillo [facility] CORONAVIRUS, COVID-19, 2022-02-07 18:05:00 Jyoti Carrillo [facility] OLENA NUTRITION CONSULT 2022-02-07 17:43:36 Mari Meier [facility] BASIC METABOLIC PANEL 2022-02-07 17:18:00 Jyoti Carrillo [facility] LACTIC ACID 2022-02-07 14:04:00 Areli Arciniega alth CBC/DIFF 2022-02-07 14:03:00 Areli Arciniega alth BASIC METABOLIC PANEL 2022-02-07 14:03:00 Areli Arciniega [facility] LIVER PROFILE 2022-02-07 14:03:00 Areli Arciniega alth LIPASE 2022-02-07 14:03:00 Areli Arciniega alth MAGNESIUM 2022-02-07 14:03:00 Areli Arciniega alth PHOSPHORUS 2022-02-07 14:03:00 Areli Arciniega alth TROPONIN I 2022-02-07 14:03:00 Areli Arciniega alth CBC 2022-02-07 14:03:00 Areli Arciniega alth 12 LEAD EKG 2022-01-21 15:46:10 Ori Goldbergt h CBC/DIFF 2022-01-21 04:11:00 [facility]eh [facility] MAGNESIUM 2022-01-21 04:11:00 LindseyNoeh [facility] PHOSPHORUS 2022-01-21 04:11:00 Lindsey [facility] BASIC METABOLIC PANEL 2022-01-21 04:11:[address] [facility] CBC 2022-01-21 04:11:00 [facility] P [facility] CBC/DIFF 2022-01-20 04:37:00 LindseyNoeh P [facility] MAGNESIUM 2022-01-20 04:37:00 [facility] PHOSPHORUS 2022-01-20 04:37:00 LindseyNoeh P [facility] BASIC METABOLIC PANEL 2022-01-20 04:37:00 LindseySteve P [facility] CBC 2022-01-20 04:37:00 LindseyNoeh P [facility] MAGNESIUM 2022-01-19 18:09:00 [facility] PHOSPH[facility]US 2022-01-19 18:09:00 [facility] BASIC METABOLIC PANEL 2022-01-19 18:09:00 [facility] CORTISOL, TOTAL 2022-01-19 18:09:00 [facility] URINALYSIS W/REFLEX TO 2022-01-19 17:22:00 [facility] URINE CULTURE URINALYSIS 2022-01-19 17:22:00 [facility] URINE CULTURE COLLECTION 2022-01-19 17:22:[address] [facility] Health KIT COMPUTED TOMOGRAPHY 2022-01-19 13:29:[address] [facility] ABDOMEN AND PELVIS WITHOUT CONTRAST CBC/DIFF 2022-01-19 04:44:00 [facility] CBC 2022-01-19 04:44:00 LindseyNoeh P [facility] DIFFERENTIAL, MANUAL (NO 2022-01-19 04:44:00 LindseyNoeh P [facility] BASIC METABOLIC PANEL 2022-01-18 17:15:00 [facility]Steve [facility] CBC/DIFF 2022-01-18 04:46:00 [facility] MAGNESIUM 2022-01-18 04:46:00 [facility] PHOSPHORUS 2022-01-18 04:46:00 [facility] BASIC METABOLIC PANEL 2022-01-18 04:46:[address] [facility] CBC 2022-01-18 04:46:00 [facility] HIV AG/AB COMBO ROUTINE 2022-01-18 04:46:00 Kairn Bassett [facility] SCREENING ENTERIC PATHOGENS NUCLEIC 2022-01-18 03:25:00 Karin Bassett [facility] ACID TEST BASIC METABOLIC PANEL 2022-01-18 00:29:[address] [facility] BASIC METABOLIC PANEL 2022-01-17 17:07:00 [facility] BASIC METABOLIC PANEL 2022-01-17 13:15:00 Lindsey[facility] CALPROTECTIN FECAL 2022-01-17 12:38:00 Steve Lucas [facility] ealth FECAL LEUKOCYTES 2022-01-17 12:38:[address] [facility]-TRANSGLUT[facility]IN[facility] IGA 2022-01-17 12:22:00 LindseySteve child P [facility] BASIC METABOLIC PANEL 2022-01-17 08:51:00 [facility]Noeh [facility] BASIC METABOLIC PANEL 2022-01-17 04:47:00 LindseyNoeh P [facility] CBC/DIFF 2022-01-17 04:47:00 Steve Lucas [facility] MAGNESIUM 2022-01-17 04:47:00 [facility] PHOSPHORUS 2022-01-17 04:47:00 [facility] CBC 2022-01-17 04:47:00 [facility] BASIC METABOLIC PANEL 2022-01-17 00:08:00 Steve [facility] 12 LEAD EKG 2022-01-16 21:23:25 [facility] BASIC METABOLIC PANEL 2022-01-16 21:08:00 [facility] XRAY CHEST 2 VIEWS 2022-01-16 19:56:00 LindseySteve [facility] ealth IP CONSULT TO PHYSICAL 2022-01-16 19:17:17 LindseySteve is Health THERAPY CONSULT CLINICAL CASE 2022-01-16 19:17:17 [facility] MANAGEMENT (RN/SW) SEQUENTIAL COMPRESSION 2022-01-16 19:17:17 LindseySteve is Health PUMP SEQUENTIAL COMPRESSION 2022-01-16 19:17:17 LindseySteve is Health PUMP SODIUM, URINE, RANDOM 2022-01-16 16:00:00 NievesKevin barreto [facility] CREATININE, URINE, RANDOM 2022-01-16 16:00:[address] [facility] OSMOLALITY, URINE 2022-01-16 16:00:00 Nieves, Colin [facility] SARS-COV-2, FLU A/B, RSV 2022-01-16 15:20:00 NievesKevin barreto [facility] CORONAVIRUS, COVID-19, 2022-01-16 15:20:00 Nieves, Colin [facility] OLENA FOLIC ACID 2022-01-16 14:13:00 Kevin Nieves [facility] CREATININE POC 2022-01-16 13:55:00 Raymon Martin h BMP POC 2022-01-16 13:46:00 Raymon Martin h CBC/DIFF 2022-01-16 12:12:00 Raymon Martin h CBC 2022-01-16 12:12:00 Raymon Martint h BASIC METABOLIC PANEL 2022-01-16 12:11:00 Sadiq Vargas is Health MAGNESIUM 2022-01-16 12:11:00 Sadiq Vargas [facility] VITAMIN B12 2022-01-16 12:11:00 Kevin Nieves [facility] ealth OSMOLALITY,SERUM 2022-01-16 12:11:[address] [facility] INFUSION PUMP 2022-01-11 09:21:05 Helene Ring [facility] GLUCOSE POC 2022-01-11 07:54:00 [facility] BASIC METABOLIC PANEL 2022-01-11 04:07:[address] [facility] MAGNESIUM 2022-01-11 04:07:00 Merissa Richards [facility] PHOSPHORUS 2022-01-11 04:07:00 [facility] CBC/DIFF 2022-01-11 04:06:00 Mer[facility] IRON PROFILE 2022-01-11 04:06:00 Merissa Richards [facility] FOLIC ACID 2022-01-11 04:06:00 Merissa Richards [facility] CBC 2022-01-11 04:06:00 Merissa Richards [facility] GLUCOSE POC 2022-01-10 18:16:00 Helene Ring [facility] URINALYSIS 2022-01-10 16:10:00 Merissa Richards [facility] URINALYSIS 2022-01-10 16:10:00 Merissa Richards [facility] SARS-COV-2, FLU A/B, RSV 2022-01-10 15:54:00 Merissa Richards [facility] CORONAVIRUS, COVID-19, 2022-01-10 15:54:00 Antoine Hester [facility] OLENA BASIC METABOLIC PANEL 2022-01-10 15:54:[address] [facility] VITAMIN B12 2022-01-10 15:54:00 Merissa Richards [facility] VBG POC 2022-01-10 11:14:00 Dia Jewell philipp [facility] CBC/DIFF 2022-01-10 11:13:00 Antoine Hester [facility] BASIC METABOLIC PANEL 2022-01-10 11:13:[address] [facility] LACTIC ACID 2022-01-10 11:13:00 [facility]-10 11:13:00 Antoine Hester [facility] LIVER PROFILE 2022-01-10 11:13:00 Merissa Richards [facility] CK, TOTAL 2022-01-10 11:13:00 RichardsMerissa Felicita [facility] FERRITIN 2022-01-10 11:13:00 Merissa Richards [facility] CREATINE KINASE MB (CKMB) 2022-01-10 11:13:00 FerchoMerissa Felicita [facility] XRAY CHEST 2 VIEWS 2022-01-08 21:50:[address] [facility] CBC/DIFF 2022-01-08 21:27:00 Tanja Sebastian [facility] BASIC METABOLIC PANEL 2022-01-08 21:27:00 Tanja Sebastian [facility] LIVER PROFILE 2022-01-08 21:27:00 Tanja Sebastian [facility] CK, TOTAL 2022-01-08 21:27:00 Tanja Sebastian [facility] TROPONIN I 2022-01-08 21:27:00 Tanja Sebastian [facility] CBC 2022-01-08 21:27:00 Randa Sebastianandra Watson [facility] CREATINE KINASE MB (CKMB) 2022-01-08 21:27:00 Randa Sebastianandra Watson [facility] 12 LEAD EKG 2022-01-08 20:59:56 Randa Sebastianandra Watson [facility] [id number] 2020-01-09 00:00:00 [facility].[address] [place] [address] Plan of Care Planned Activity Planned Date Details Comments Source Future Scheduled 2029-03-23 Screening for malignant [facility] 00:00:00 neoplasm of colon [facility] (procedure) [code = 377983176] Future Scheduled 2029-03-23 Screening for malignant [facility] 00:00:00 neoplasm of colon [facility] (procedure) [code = 113867645] Future Scheduled 2029-03-23 Screening for malignant [facility] Test 00:00:00 neoplasm of colon [facility] (procedure) [code = 224567900] Future Scheduled 2029-03-23 Screening for malignant [facility] Test 00:00:00 neoplasm of colon [facility] (procedure) [code = 342500934] Future Scheduled 2029-03-23 Screening for malignant [facility] Test 00:00:00 neoplasm of colon [facility] (procedure) [code = 290533745] Future Scheduled 2029-03-23 Screening for malignant [facility] Test 00:00:00 neoplasm of colon Medical Ce [facility] (procedure) [code = 032728615] Future Scheduled 2029-03-23 Screening for malignant [facility] 00:00:00 neoplasm of colon [facility] Ce [facility] (procedure) [code = 982076848] Future Scheduled 2029-03-23 Screening for malignant [facility] Test 00:00:00 neoplasm of colon Medical Ce [facility] (procedure) [code = 820613052] Future Scheduled 2029-03-23 Screening for malignant [facility] 00:00:00 neoplasm of colon Medical [facility] (procedure) [code = 120738753] Future Scheduled 2029-03-23 Screening for malignant [facility] 00:00:00 neoplasm of colon Medical Ce [facility] (procedure) [code = 276653773] Future Scheduled 2029-03-23 Screening for malignant [facility] 00:00:00 neoplasm of colon Medical Ce [facility]ter (procedure) [code = 530820763] Future Scheduled 2029-03-23 Screening for malignant [facility] 00:00:00 neoplasm of colon Medical Ce [facility] (procedure) [code = 777586426] Future Scheduled 2029-03-23 Screening for malignant [facility] 00:00:00 neoplasm of colon Medical Ce [facility] (procedure) [code = 201536625] Future Scheduled 2029-03-23 Screening for malignant [facility] 00:00:00 neoplasm of colon Medical Ce [facility]ter (procedure) [code = 170064149] Future Scheduled 2029-03-23 Screening for malignant [facility] 00:00:00 neoplasm of colon Medical Ce [facility]ter (procedure) [code = 448282797] Future Scheduled 2029-03-23 Screening for malignant [facility] 00:00:00 neoplasm of colon Medical Ce [facility]ter (procedure) [code = 490540233] Future Scheduled 2029-03-23 Screening for malignant [facility] 00:00:00 neoplasm of colon Medical Ce [facility]ter (procedure) [code = 328328876] Future Scheduled 2029-03-23 Screening for malignant [facility] 00:00:00 neoplasm of colon Medical Ce [facility] (procedure) [code = 440691203] Future Scheduled 2029-03-23 Screening for malignant [facility] 00:00:00 neoplasm of colon Medical Ce [facility]ter (procedure) [code = 846467881] Future Scheduled 2029-03-23 Screening for malignant [facility] 00:00:00 neoplasm of colon Medical Ce [facility]ter (procedure) [code = 703896226] Future Scheduled 2029-03-23 Screening for malignant [facility] 00:00:00 neoplasm of colon Medical Ce [facility]ter (procedure) [code = 888919607] Future Scheduled 2029-03-23 Screening for malignant [facility] 00:00:00 neoplasm of colon Medical Ce [facility]ter (procedure) [code = 014413559] Future Scheduled 2029-03-23 Screening for malignant [facility] 00:00:00 neoplasm of colon Medical Ce [facility]ter (procedure) [code = 917532439] Future Scheduled 2022-05-24 IMM Influenza Seasonal [facility]00 (12+) [code = [facility] DEPRESSION SCREENING (12+)] Future Scheduled 2021-08-[address] [facility] 00:00:00 (12+) [code = Medical Center DEPRESSION SCREENING (12+)] Future Scheduled 2020-04-24 INFLUENZA VACCINE (#1) [facility]:00[facility]00 [code = INFLUENZA Medical nter VACCINE (#1)] Future Scheduled 2020-02-14 Screening for malignant [facility] 00:00:00 neoplasm of colon (procedure) [code = 325513544] Future Scheduled 2020-02-14 Screening for malignant [facility] 00:00:00 neoplasm of colon (procedure) [code = 474091329] Future Scheduled 2020-02-14 Screening for malignant [facility] 00:00:00 neoplasm of colon (procedure) [code = 811834263] Future Scheduled 2020-02-14 Screening for malignant [facility] 00:00:00 neoplasm of colon (procedure) [code = 748493557] Future Scheduled 2020-02-14 Screening for malignant [facility] 00:00:00 neoplasm of colon (procedure) [code = 529755073] Future Scheduled 2020-02-14 Screening for malignant [facility] 00:00:00 neoplasm of colon (procedure) [code = 147310633] Future Scheduled 2020-02-14 Screening for malignant [facility] 00:00:00 neoplasm of colon (procedure) [code = 899730591] Future Scheduled 2020-02-14 Screening for malignant [facility] 00:00:00 neoplasm of colon (procedure) [code = 335772112] Future Scheduled 2020-02-14 Screening for malignant [facility] 00:00:00 neoplasm of colon (procedure) [code = 663063561] Future Scheduled 2020-02-14 Screening for malignant [facility] 00:00:00 neoplasm of colon (procedure) [code = 552613827] Future Scheduled 2020-02-14 SHINGLES VACCINES ([address] [facility] 00:00:00 2) [code = SHINGLES [facility] VACCINES (1 of 2)] Future Scheduled 2020-02-14 Screening for malignant [facility] 00:00:00 neoplasm of colon (procedure) [code = 426817952] Future Scheduled 2020-02-14 SHINGLES VACCINES (1 of [...] [facility] 00:00:00 [code = 81894848] Medical Ce nter Future Scheduled 2005 Lipid panel (procedure) [facility] 00:00:00 [code = 19712556] Medical Ce nter Future Scheduled 2005 Lipid panel (procedure) [facility] 00:00:00 [code = 97496053] Medical Ce nter Future Scheduled 2005 Lipid panel (procedure) [facility] 00:00:00 [code = 85490204] Medical Ce nter Future Scheduled 2005 Lipid panel (procedure) [facility] 00:00:00 [code = 66012755] Medical Ce nter Future Scheduled 2005 Lipid panel (procedure) [facility] 00:00:00 [code = 29652189] Medical Ce nter Future Scheduled 2005 Lipid panel (procedure) [facility] 00:00:00 [code = 88216931] Medical Ce nter Future Scheduled 2005 Lipid panel (procedure) [facility] 00:00:00 [code = 02040181] Medical Ce nter Future Scheduled 2005 Lipid panel (procedure) [facility] 00:00:00 [code = 50514935] Medical Ce nter Future Scheduled 2005 Lipid panel (procedure) [facility] 00:00:00 [code = 88101975] Medical Ce nter Future Scheduled 2005 Lipid panel (procedure) [facility] 00:00:00 [code = 74008256] Medical Ce nter Future Scheduled 2005 Lipid panel (procedure) [facility] 00:00:00 [code = 62604509] Medical Ce nter Future Scheduled 1989 DTAP/TDAP/TD [...] [facility] 00:[facility]:00 [code = CT Colonography [facility] (combo)] Future Scheduled 1970 Screening for malignant [facility] 00:00:00 neoplasm of colon Medical Ce nter (procedure) [code = 363781236] Future Scheduled 1970 Screening for malignant [facility] 00:00:00 neoplasm of colon Medical Ce nter (procedure) [code = 882827550] Future Scheduled 1970 Sigmoidoscopy [code = [facility]] Medical Angele r Future Scheduled 1970 Fluoride Varnish [facility] = Fluoride Varnish] Future Scheduled 1970 Screening for malignant [facility] 00:00:00 neoplasm of colon Medical Ce nter (procedure) [code = 453506780] Future Scheduled 1970 Screening for malignant [facility] 00:00:00 neoplasm of colon Medical Ce nter (procedure) [code = 885070974] Future Scheduled 1970 Sigmoidoscopy [code = [facility] S[facility]oscopy] Medical Angele r Future Scheduled 1970 CT Colonography (combo) [facility] 00:00:00 [code = CT [facility] ([facility])] Future Scheduled 1970 Screening for malignant [facility] 00:00:00 neoplasm of colon Medical Ce [facility]ter (procedure) [code = 959835225] Future Scheduled 1970 Screening for malignant [facility] 00:00:00 neoplasm of colon Medical Ce [facility]ter (procedure) [code = 263426165] Future Scheduled 1970 Sigmoidoscopy [code = [facility] S[facility]oidoscopy] Medical Seda r Future Scheduled 1970 CT Colonography (combo) [facility] 00:00:00 [code = CT [facility] ([facility])] Future Scheduled 1970 Screening for malignant [facility] 00:00:00 neoplasm of colon Medical Ce [facility]ter (procedure) [code = 750441233] Future Scheduled 1970 Screening for malignant [facility] 00:00:00 neoplasm of colon Medical Ce [facility]ter (procedure) [code = 034633340] Future Scheduled 1970 Sigmoidoscopy [facility]code [facility] S[facility]oidoscopy] Medical Angele r Future Scheduled 1970 CT Colonography (combo) [facility] 00:00:00 [code = CT [facility] ([facility])] Future Scheduled 1970 Screening for malignant [facility] 00:00:00 neoplasm of colon Medical Ce [facility]ter (procedure) [code = 508963283] Future Scheduled 1970 Screening for malignant [facility] 00:00:00 neoplasm of colon Medical Ce [facility]ter (procedure) [code = 557920326] Future Scheduled 1970 Sigmoidoscopy [facility]code = [facility] S[facility]] Medical Cent[facility] r Future Scheduled 1970 CT Colonography (combo) [facility] 00:00:00 [code = CT Colonography [facility] ([facility])] Future Scheduled 1970 Screening for malignant [facility] 00:00:00 neoplasm of colon Medical Ce [facility]ter (procedure) [code = 131610134] Future Scheduled 1970 Screening for malignant [facility] 00:00:00 neoplasm of colon Medical Ce [facility]ter (procedure) [code = 534249346] Future Scheduled 1970 Sigmoidoscopy [code = [facility] S[facility]oscopy] Medical Cent[facility] r Future Scheduled 1970 CT Colonography (combo) [facility] 00:00:00 [code = CT Colonography [facility] (combo)] Future Scheduled 1970 Screening for malignant [facility] 00:00:00 neoplasm of colon Medical Ce nter (procedure) [code = 804884655] Future Scheduled 1970 Screening for malignant [facility] 00:00:00 neoplasm of colon Medical Ce nter (procedure) [code = 120573681] Future Scheduled 1970 Sigmoidoscopy [code = [facility] S[facility]oscopy] Medical Cente r Future Scheduled 1970 CT Colonography (combo) [facility] 00:00:00 [code = CT Colonography [facility] (combo)] Future Scheduled 1970 Screening for malignant [facility] 00:00:00 neoplasm of colon Medical Ce [facility]ter (procedure) [code = 760048274] Future Scheduled 1970 Screening for malignant [facility] 00:00:00 neoplasm of colon Medical Ce nter (procedure) [code = 481549092] Future Scheduled 1970 Sigmoidoscopy [facility]code = [facility] S[facility]oscopy] Medical Angele r Future Scheduled 1970 CT Colonography (combo) [facility] 00:00:00 [code = CT Colonography [facility] (combo)] Future Scheduled 1970 Screening for malignant [facility] 00:00:00 neoplasm of colon Medical Ce nter (procedure) [code = 399737865] Future Scheduled 1970 Screening for malignant [facility] 00:00:00 neoplasm of colon Medical Ce nter (procedure) [code = 830713774] Future Scheduled 1970 Sigmoidoscopy [facility]code [facility] Sigmoidoscopy] Medical Angele r Future Scheduled 1970 CT Colonography (combo) [facility] 00:00:00 [code = CT Colonography [facility] (combo)] Future Scheduled 1970 Screening for malignant [facility] 00:00:00 neoplasm of colon Medical Ce nter (procedure) [code = 605673677] Future Scheduled 1970 Screening for malignant [facility] 00:00:00 neoplasm of colon Medical Ce nter (procedure) [code = 635413538] Future Scheduled 1970 Sigmoidoscopy [facility]code = [facility] Sigmoidoscopy] Medical Seda r Future Scheduled 1970 CT Colonography (combo) [facility] 00:00:00 [code = CT Colonography [facility] (combo)] Future Scheduled 1970 Screening for malignant [facility] 00:00:00 neoplasm of colon Medical Ce nter (procedure) [code = 322219643] Future Scheduled 1970 Screening for malignant [facility] 00:00:00 neoplasm of colon Medical Ce nter (procedure) [code = 938684632] Future Scheduled 1970 Sigmoidoscopy [facility]code = [facility] Sigmoidoscopy] Medical Seda r Future Scheduled 1970 CT Colonography (combo) [facility] 00:00:00 [code = CT Colonography [facility] (combo)] Encounters Start End Encounter Admission Attending Care Care Encounter Source Date/Time Date/Time Type Type Clinicians Facility Department ID 2020-02-23 Inpatient HCAPM LENNY [id number] [facility] 18:42:00 89 [facility] 2020-02-17 Inpatient EM Avtar, HCAPM BRET [id number] [facility] 00:22:00 Oladipo 75 [facility] 2020-01-05 Inpatient UR Eliazar, HCAPM MEDI.01 [id number] [facility] 20:23:00 Mark 40 [facility] 2019-12-13 Inpatient HCAMN JULIA [id number] [facility] 17:52:00 47 [facility] 2022-03-29 2022-03-29 Emergency EM White, HCACL AERS [id number] [facility] 14:26:00 16:45:00 Steve Bryan [facility] 2022-03-29 2022-03-29 Emergency EM White, HCACL HCACL [id number] [facility] 14:26:00 16:45:00 Steve 80753 [facility] 2022-03-25 2022-03-26 Inpatient E RICHARD BL MED [id number] BL 13:38:00 10:16:00 , YESSI 2022-03-15 2022-03-18 Emergency E RADHA [facility] [id number] [facility] 13:36:00 18:59:00 NELSON 2022-03-13 2022-03-13 Emergency [facility] [id number] Lynne 15:33:00 20:25:00 [facility] 2022-03-13 2022-03-13 Emergency [facility] [id number] Lynne 15:33:00 20:25:00 [facility] 2022-03-13 2022-03-13 [facility] [id number] [place] 00:00:00 00:00:00 [facility] 2022-03-06 2022-03-09 Inpatient ER ANYALEÓN MARSHALL [facility] Emergency [id number] [facility] 12:16:00 12:55:00 2022-03-06 2022-03-09 Hospital ER Aryan Tello [facility] 1 [id number] [facility] 12:16:00 12:55:00 Encounter Dee Dee Montalvo Fang-Ying M edical [facility] Canasn Colin 2022-03-06 2022-03-09 [facility] Aryan Tello [facility] [id number] [facility] 12:16:00 12:55:00 Encounter Dee Dee Montalvo Romie [facility]hena [facility] León Bain Colin 2022-03-06 2022-03-06 [facility]patient [facility] [id number] [facility] 00:00:00 23:59:00 Lorna Medicin e 2022-03-06 2022-03-06 Orders [facility] [id number] 00:00:00 00:00:00 Only [facility] 2022-03-06 2022-03-06 Travel [facility] [id number] [facility] 00:[facility]:00 [facility] 2022-03-06 2022-03-06 Orders [facility] [id number] 00:00:00 00:00:00 Only [facility] 2022-03-06 2022-03-06 Travel [facility] [id number] [facility] 00:00[facility]00 00:00:00 [facility] 2022-02-18 2022-02-20 [id number] Maged 13:58:00 11:55:00 Bernabe Calvert Ashish D Cavazos, Roberto H 2022-02-18 2022-02-20 Emergency [facility] [id number] Maged 13:58:00 11:55:00 Bernabe Calvert Ashish D Cavazos, Roberto H 2022-02-18 2022-02-18 [facility] [id number] [place] 15:19:05 15:23:18 [facility] 2022-02-18 2022-02-18 Outpatient [facility] [id number] Maged 13:58:00 13:58:00 [facility] 2022-02-18 2022-02-18 Outpatient [facility]IZ [facility] [id number] [place] 00:00:00 00:00:00 , OSCAR blanchard 2022-02-07 2022-02-11 [facility] [id number] [place] 13:40:00 13:22:00 [facility] 2022-02-07 2022-02-11 [facility] [id number] [place] 13:40:00 13:22:00 Encounter Antonieta [facility] 2022-02-07 2022-02-07 Outpatient 1 [facility]AN [facility] [id number] [place] 13:40:00 13:40:00 [facility] 2022-01-30 2022-01-30 Emergency SEAN Pacheco, [facility] [id number] [facility] 17:02:00 18:29:[address] [facility] 2022-01-30 2022-01-30 [facility] [id number] [facility] 17:02:00 18:29:00 Dwain [id number] [facility] 2022-01-22 2022-01-22 Emergency [facility] [id number] [place] 17:24:00 20:39:00 [facility] 2022-01-22 2022-01-22 Emergency [facility] [id number] [place] 17:24:00 20:39:00 [facility] 2022-01-16 2022-01-21 Emergency Raymon Martin [facility] [id number] [place] 11:04:00 18:08:00 Karin Bassett Julian C Agrawal, Parth P 2022-01-16 2022-01-21 Emergency Raymon Martin [facility] [id number] [place] 11:04:00 18:08:00 Karin Bassett Julian C Agrawal, Parth P 2022-01-19 2022-01-19 [facility] [id number] [place] 12:34:08 13:29:31 [facility] 2022-01-162022-01-16 [facility] [id number] [place] 19:42:28 20:01:28 [facility] 2022-01-16 2022-01-16 Outpatient 1 [facility] [id number] [place] 11:04:00 11:04:00 KARIN blanchard 2022-01-10 2022-01-11 [facility] [id number] [place] 10:58:00 11:20:00 Helene Ring [facility] 2022-01-10 2022-01-11 Emergency Brianna [facility] [id number] [place] 10:58:00 11:20:00 [facility]-10 2022-01-10 [facility] [id number] [place] 10:58:00 10:58:00 [facility] 2022-01-08 2022-01-09 Emergency [facility] [id number] [place] 17:57:00 02:50:00 [facility] 2022-01-08 2022-01-09 Emergency [facility] [id number] [place] 17:57:00 02:50:00 [facility] 2022-01-08 2022-01-08 [facility] [id number] [place] 21:40:34 21:50:19 [facility] 2021-09-23 2021-09-23 Emergency EM Raffaele Levi HCACL AERS [id number] [facility] 19:35:00 21:10:00 74 [facility] 2021-09-13 2021-09-13 Emergency EM [facility]affaele [facility] [id number] [facility] 14:57:00 16:37:00 06 [facility] 2021-07-27 2021-07-27 Emergency EM Javedcharlotte, HCAMN JULIA [id number] [facility] 10:15:00 12:36:00 Tarek 17 [facility] 2021-07-22 2021-07-22 Emergency EM Marcelina, HCACL AERS [id number] [facility] 04:25:00 08:20:00 Tarrell 74 [facility] 2021-06-27 2021-06-27 Emergency EM Bridgett, HCACL AERS [id number] [facility] 15:31:00 17:37:00 Steve 17 [facility] 2021-04-28 2021-05-01 Inpatient EM Aisha, HCACL MAS [id number] [facility] 21:05:00 14:18:00 Christopher 03 Mehran liao [facility] 2020-02-24 2020-02-24 Outpatient Eliazar, HCACL LABO [id number] [facility] 07:51:00 07:51:00 Mark 96 [facility] 2020-02-18 2020-02-18 Outpatient Avtar HCACL LABO [id number] [facility] 00:26:00 00:26:00 Oladipo 05 [facility] 2020-01-05 2020-01-05 Outpatient Eliazar HCACL [facility] [id number] [facility] 23:52:00 23:52:00 [facility] 24 [facility] 2017-11-02 2017-11-02 Emergency E [facility] [id number] [facility] 08:33:00 08:33:00 [facility] 2017-08-05 2017-08-05 [facility] [id number] [place] 00:00:00 00:00:00 [facility] 2017-07-28 2017-07-28 [facility] [id number] [place] 00:00:00 00:00:00 [facility] 2017-06-24 2017-06-24 [facility] [id number] [place] 00:00:00 00:00:00 [facility] 2017-06-22 2017-06-22 [facility] [id number] [place] 21:37:29 21:37:29 [facility] 2017-06-22 2017-06-22 Emergency [facility] [id number] [place] 21:06:00 21:06:00 [facility] 2017-06-22 2017-06-22 [facility] [id number] [place] 10:02:31 10:02:31 [facility] 2017-06-09 2017-06-09 [facility] [id number] [place] 00:00:00 00:00:00 [facility] 2017-06-09 2017-06-09 [facility] [id number] [place] 00:00:00 00:00:00 [facility] 2017-05-08 2017-05-08 Emergency [facility] [id number] [place] 01:04:44 01:04:44 Health 2017-05-05 2017-05-05 Emergency E [facility] [id number] [facility] 08:11:00 08:11:00 [facility] 2017-04-15 2017-04-15 Emergency E [facility] [id number] [facility] 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 BASIC METABOLIC [id number] 14:56:00 Test Item Value Reference Range Interpretation [...] MG/DL 70-110 N - XR CHEST 1 [id number] 00:00:00 [facility] : 1970 Sex: M FAX: Steve Urias MD [phone] [place]: [place] St: REG Name: MARIA ISABEL JOSEPH FSED : 1970 Age/S: 52/M [address] [facility] Unit #: [id number] Loc: [place] [address] Phys: Steve Urias MD Acct: [id number] Dis Date: Status: REG ER PHONE #: Exam Date: 03/29/2022 1506 FAX #: Reason: Weakness EXAMS: CPT CODE: [id number] XR CHEST 1 V 90686 PROCEDURE INFORMATION: Exam: XR Chest Exam date [...] 03/29/2022 (1531) PAGE 1 Signed ReportHEPATIC FUNCTION [id number] 06:45:03 Test Item Value Reference Range Interpretation [...] (test code = 13 U/L 6-55 347) Chief Business Development Officer ID Philipp HOOD WBASIC METABOLIC [id number] 06:45:02 Test Item Value Reference Range Interpretation [...] S NOT APPLICABLE FOR DIALYSIS PATIEN TS. Chief Business Development Officer ID Philipp HOOD WCBC W/PLT COUNT & AUTO [id number] 06:26:54 Test Item Value Reference Range Interpretation [...] (BEAKER) (test code = 2801) U/S, RENAL, [id number] 19:23:00Reason for exam:->acute kidney [facility] 1970 Sex: [...] SARS-Co V-2 (test code = target nucleic 73499-2) acids are not detected in thi s [...] revoked sooner. Fact Sheet for Healthcare Providers: https://www.Typerings.com/Documents/Xp ert%20Xpress%20SAR S%20CoV-2/Fact%20S heets/302-3802%20S ARS-COV-2%20HEALTH CARE%20PROVIDERS%2 0FACT%20SHEET.pdf Fact Sheet for Healthcare Patients: https://www.[employer]per[employer].com/Documents/Xp ert%20Xpress%20SAR S%20CoV-2/Fact%20S heets/302-3801%20S ARS-COV-2%20PATIEN T%20FACT%20SHEET.p df Lab Interpretation Normal (test code = 00608-9) [facility]2022-[facility]-06 19:17:07 Test Item Value Reference Interpretation Comments Range SARS-COV2/RT-PCR Negative Negative The SARS-Co V-2 (test code = target nucleic 76102-3) acids are not detected in thi s [...] revoked sooner. Fact Sheet for Healthcare Providers: https://www.Typerings.com/Documents/Xp ert%20Xpress%20SAR S%20CoV-2/Fact%20S heets/302-3802%20S ARS-COV-2%20HEALTH CARE%20PROVIDERS%2 0FACT%20SHEET.pdf Fact Sheet for Healthcare Patients: https://www.Typerings.com/Documents/Xp ert%20Xpress%20SAR S%20CoV-2/Fact%20S heets/302-3801%20S ARS-COV-2%20PATIEN T%20FACT%20SHEET.p df Lab Interpretation Normal (test code = 51433-3) [facility]2022-03-06 19:17:07 Test Item Value Reference Interpretation Comments Range SARS-COV2/RT-PCR Negative Negative The SARS-Co V-2 (test code = target nucleic 31558-6) acids are not detected in thi s [...] revoked sooner. Fact Sheet for Healthcare Providers: https://www.Typerings.com/Documents/Xp ert%20Xpress%20SAR S%20CoV-2/Fact%20S heets/302-3802%20S ARS-COV-2%20HEALTH CARE%20PROVIDERS%2 0FACT%20SHEET.pdf Fact Sheet for Healthcare Patients: https://www.[employer]perings.com/Documents/Xp ert%20Xpress%20SAR S%20CoV-2/Fact%20S heets/302-3801%20S ARS-COV-2%20PATIEN T%20FACT%20SHEET.p df Lab Interpretation Normal (test code = 05034-2) [facility]2022-03-06 19:17:07 Test Item Value Reference Interpretation Comments Range SARS-COV2/RT-PCR Negative Negative The SARS-Co V-2 (test code = target nucleic 27755-7) acids are not detected in thi s [...] om SARS-CoV-2 in a nasopharyngeal swab [facility] s suspected of COVID-19 [...] revoked sooner. Fact Sheet for Healthcare Providers: https://www.Typerings.com/Documents/Xp ert%20Xpress%20SAR S%20CoV-2/Fact%20S heets/302-3802%20S ARS-COV-2%20HEALTH CARE%20PROVIDERS%2 0FACT%20SHEET.pdf Fact Sheet for Healthcare Patients: https://www.Typerings.com/Documents/Xp ert%20Xpress%20SAR S%20CoV-2/Fact%20S heets/302-3801%20S ARS-COV-2%20PATIEN T%20FACT%20SHEET.p df Lab Interpretation Normal (test code = 18047-1) [facility]2022-03-06 19:17:07 Test Item Value Reference Interpretation Comments Range SARS-COV2/RT-PCR Negative Negative The SARS-Co V-2 (test code = target nucleic 52482-5) acids are not detected in thi s [...] revoked sooner. Fact Sheet for Healthcare Providers: https://www.Typerings.com/Documents/Xp ert%20Xpress%20SAR S%20CoV-2/Fact%20S heets/302-3802%20S ARS-COV-2%20HEALTH CARE%20PROVIDERS%2 0FACT%20SHEET.pdf Fact Sheet for Healthcare Patients: https://www.Typerings.com/Documents/Xp ert%20Xpress%20SAR S%20CoV-2/Fact%20S heets/302-3801%20S ARS-COV-2%20PATIEN T%20FACT%20SHEET.p df Lab Interpretation Normal (test code = 08930-0) [facility]06 19:17:07 Test Item Value Reference Interpretation Comments Range SARS-COV2/RT-PCR Negative Negative The SARS-Co V-2 (test code = target nucleic 83614-8) acids are not detected in thi s [...] revoked sooner. Fact Sheet for Healthcare Providers: https://www.Typerings.com/Documents/Xp ert%20Xpress%20SAR S%20CoV-2/Fact%20S heets/302-3802%20S ARS-COV-2%20HEALTH CARE%20PROVIDERS%2 0FACT%20SHEET.pdf Fact Sheet for Healthcare Patients: https://www.Typerings.com/Documents/Xp ert%20Xpress%20SAR S%20CoV-2/Fact%20S heets/302-3801%20S ARS-COV-2%20PATIEN T%20FACT%20SHEET.p df Lab Interpretation Normal (test code = 30305-9) [facility]2022-03-06 19:17:07 Test Item Value Reference Interpretation Comments Range SARS-COV2/RT-PCR Negative Negative The SARS-Co V-2 (test code = target nucleic 65131-4) acids are not detected in thi s [...] revoked sooner. Fact Sheet for Healthcare Providers: https://www.Typerings.com/Documents/Xp ert%20Xpress%20SAR S%20CoV-2/Fact%20S heets/3023802%20S ARS-COV-2%20HEALTH CARE%20PROVIDERS%2 0FACT%20SHEET.pdf Fact Sheet for Healthcare Patients: https://www.Typerings.com/Documents/Xp ert%20Xpress%20SAR S%20CoV-2/Fact%20S heets/302-3801%20S ARS-COV-2%20PATIEN T%20FACT%20SHEET.p df Lab Interpretation Normal (test code = 35423-9) [facility]2022-03-06 19:17:07 Test Item Value Reference Interpretation Comments Range SARS-COV2/RT-PCR Negative Negative The SARS-Co V-2 (test code = target nucleic 60088-3) acids are not detected in thi s [...] revoked sooner. Fact Sheet for Healthcare Providers: https://www.Typerings.com/Documents/Xp ert%20Xpress%20SAR S%20CoV-2/Fact%20S heets/302-3802%20S ARS-COV-2%20HEALTH CARE%20PROVIDERS%2 0FACT%20SHEET.pdf Fact Sheet for Healthcare Patients: https://www.Typerings.com/Documents/Xp ert%20Xpress%20SAR S%20CoV-2/Fact%20S heets/302-3801%20S ARS-COV-2%20PATIEN T%20FACT%20SHEET.p df Lab Interpretation Normal (test code = 12653-7) [facility]2022-03-06 19:17:07 Test Item Value Reference Interpretation Comments Range SARS-COV2/RT-PCR Negative Negative The SARS-Co V-2 (test code = target nucleic 39831-7) acids are not detected in thi s [...] revoked sooner. Fact Sheet for Healthcare Providers: https://www.Typerings.com/Documents/Xp ert%20Xpress%20SAR S%20CoV-2/Fact%20S heets/302-3802%20S ARS-COV-2%20HEALTH CARE%20PROVIDERS%2 0FACT%20SHEET.pdf Fact Sheet for Healthcare Patients: https://www.Typerings.com/Documents/Xp ert%20Xpress%20SAR S%20CoV-2/Fact%20S heets/302-3801%20S ARS-COV-2%20PATIEN T%20FACT%20SHEET.p df Lab Interpretation Normal (test code = 41380-8) [facility]2022-03-06 19:17:07 Test Item Value Reference Interpretation Comments Range SARS-COV2/RT-PCR Negative Negative The SARS-Co V-2 (test code = target nucleic 82188-9) acids are not detected in thi s [...] revoked sooner. Fact Sheet for Healthcare Providers: https://www.Typerings.com/Documents/Xp ert%20Xpress%20SAR S%20CoV-2/Fact%20S heets/302-1594%20S ARS-COV-2%20HEALTH CARE%20PROVIDERS%2 0FACT%20SHEET.pdf Fact Sheet for Healthcare Patients: https://www.Typerings.com/Documents/Xp ert%20Xpress%20SAR S%20CoV-2/Fact%20S heets/302-0741%20S ARS-COV-2%20PATIEN T%20FACT%20SHEET.p df Lab Interpretation Normal (test code = 22805-4) [facility]2022-03-06 19:17:07 Test Item Value Reference Interpretation Comments Range SARS-COV2/RT-PCR Negative Negative The SARS-Co V-2 (test code = target nucleic 15320-2) acids are not detected in thi s [...] revoked sooner. Fact Sheet for Healthcare Providers: https://www.Typerings.com/Documents/Xp ert%20Xpress%20SAR S%20CoV-2/Fact%20S heets/302-3802%20S ARS-COV-2%20HEALTH CARE%20PROVIDERS%2 0FACT%20SHEET.pdf Fact Sheet for Healthcare Patients: https://www.Typerings.com/Documents/Xp ert%20Xpress%20SAR S%20CoV-2/Fact%20S heets/302-3801%20S ARS-COV-2%20PATIEN T%20FACT%20SHEET.p df Lab Interpretation Normal (test code = 04263-0) [facility])2022-03-06 19:17:07 Test Item Value Reference Range Interpretation Comments SARS-COV2/RT-PCR Negative Negative The SARS-Co V-2 target (test code = nucleic acids a re not 9073769) detected in thi s specimen. Negative result [...] revoked sooner. Fact Sheet for Healthcare Providers: https://www.Dysonics m/Documents/Xpert%20Xpress%20SARS%20CoV-2/Fact%20Sheets/3023802%54CKWT-TYW-2%20 HEALTHCARE%20PROVIDERS%20FACT%20SHEET.pdf Fact Sheet for Healthcare Patients: https://www.Kamego/Documents/Xpert%20Xp ress%20SARS%20CoV-2/Fact%20Sheets/3023801%40GCNJ-QLG-8%20PATIENT%20FACT%20SHEET .pdfCREATINE KINASE (CK)2022-03-06 16:19:14 Test Item Value Reference Range Interpretation Comments CREATINE KINASE TOTAL (BEAKER) (test 141 U/L 29-200 code = 380) Chief Business Development Officer ID - BST4, [id number] 15:13:16 Test Item Value Reference Range Interpretation Comments FREE T4 (BEAKER) (test code = 655) 0.95 ng/dL 0.70-1.48 Chief Business Development Officer ID - BSTSH/FREE T4 IF [id number] 15:13:16 Test Item Value Reference Range Interpretation Comments THYROID STIMULATING HORMONE 2.060 uIU/mL 0.350-4.940 (GILMAR) (test code = 772) Chief Business Development Officer ID - BSB-TYPE NATRIURETIC FACTOR (BNP)2022-03-06 14:26:30 Test Item Value Reference Range Interpretation Comments B-TYPE NATRIURETIC PEPTIDE (GILMAR) < pg/mL 0-100 (test code = 700) Chief Business Development Officer ID - JSHIGH SENSITIVITY TROPONIN [id number] 14:14:54 Test Item Value Reference Range Interpretation Comments HIGH SENSITIVITY < pg/ml See_Comment [Automated message] TROPONIN I (test code = The system which 7287897) generated this result transmitted ref erence range: <=35. Th e reference range was not used to interpr et this result as normal/abnormal . Chief Business Development Officer ID - JSThe INFORMATION SYSTEMS SPECIALIST STAT High Sensitivity Troponin-I results should be used in conjunctionwith other diagnostic information such as ECG, clinical observations and information, and patient symptoms to aid in the diagnosis of VA.RAD, CHEST, 1 VIEW, NON [id number] 14:10:00Reason for exam:- >NEUROLOGIC PROBLEMShould this be performed at the bedside?->Yes [facility] 1970 Sex: [...] Brown Verified Date/Time: 03/06/2022 14:10:44 REHENSIVE METABOLIC [id number] 14:08:22 Test Item Value Reference Range Interpretation [...] S NOT APPLICABLE FOR DIALYSIS PATIEN TS. Chief Business Development Officer ID - [id number] 14:07:49 Test Item Value Reference Range Interpretation Comments MAGNESIUM (BEAKER) (test code = 2.0 mg/dL 1.6-2.6 627) Chief Business Development Officer ID - [id number] 14:07:49 Test Item Value Reference Range Interpretation Comments PHOSPHORUS (BEAKER) (test code = 5.6 mg/dL 2.3-4.7 H 604) Chief Business Development Officer ID - JSLACTIC ACID, [id number] 13:51:04 Test Item Value Reference Range Interpretation Comments LACTATE BLOOD VENOUS 1.32 mmol/L 0.50-2.20 Specime n slightly (2) (BEAKER) (test hemolyzed code = 5422) Chief Business Development Officer ID - JSCBC W/PLT COUNT & AUTO [id number] 13:47:24 Test Item Value Reference Range Interpretation [...] (BEAKER) (test code = 2801) Coronavirus, CoVID-19, [id number] 01:07:20 Test Item Value Reference Range Interpretation Comments COVID-19 (SARS-COV-2) Not Detected Not Detected INTERP RETATION: No (test code = 08210-2) detect able levels of SARS-CoV-2 Coronavirus (COVID-19) [...] mole cular diagnostic assa y utilizes Vacuum Tank Tender Mediated Amplification ( TMA) technology to r apidly detect the SARS -CoV-2 (COVID-19) viru s from respiratory adriana ples. In accordance w ith the FDA's kamran nce document "Polic y for Diagnostic Test s for Coronavirus Disease-2019 du ring the Public [facility]", thi s test was developed, and its performance characteristics were verified by the [facility] molecular diagn ostics laboratory and is authorized for clinical diagno stic use. This labor atory is certified un estevan the Clinical Laboratory Improvement Amendments (CLI A) as qualified to pe rform high complexity clinical labora tory testing. Lab Interpretation Normal (test code = 47092-6) Maged Ruelasronavirus, CoVID-19, [id number] 01:07:20 Test Item Value Reference Range Interpretation Comments COVID-19 (SARS-COV-2) Not Detected Not Detected INTERP RETATION: No (test code = 81389-1) detect able levels of SARS-CoV-2 Coronavirus (COVID-19) [...] mole cular diagnostic assa y utilizes Vacuum Tank Tender Mediated Amplification ( TMA) technology to r apidly detect the SARS -CoV-2 (COVID-19) viru s from respiratory adriana ples. In accordance w ith the FDA's kamran nce document "Polic y for Diagnostic Test s for Coronavirus Disease-2019 du ring the Public Heal Emergency", thi s test was developed, and its performance characteristics were verified by the [facility] molecular diagn ostics laboratory and is authorized for clinical diagno stic use. This labor atory is certified un estevan the Clinical Laboratory Improvement Amendments (CLI A) as qualified to pe rform high complexity clinical labora tory testing. Lab Interpretation Normal (test code = 14683-8) Maged Aaronavirus, CoVID-19, [id number] 01:07:20 Test Item Value Reference Range Interpretation Comments COVID-19 (SARS-COV-2) Not Detected Not Detected INTERP RETATION: No (test code = 87159-2) detect able levels of SARS-CoV-2 Coronavirus (COVID-19) [...] mole cular diagnostic assa y utilizes Vacuum Tank Tender Mediated Amplification ( TMA) technology to r apidly detect the SARS -CoV-2 (COVID-19) viru s from respiratory adriana ples. In accordance w ith the FDA's kamran nce document "Polic y for Diagnostic Test s for Coronavirus Disease-2018 du [facility] the [facility] Emergency", thi s test was developed, and its performance characteristics were verified by the [facility] molecular diagn ostics laboratory and is authorized for clinical diagno stic use. This labor atory is certified un estevan the Clinical Laboratory Improvement Amendments (CLI A) as qualified to pe rform high complexity clinical labora tory testing. Lab Interpretation Normal (test code = 10395-8) [facility], [facility], [id number] 01:07:20 Test Item Value Reference Range Interpretation Comments COVID-19 (SARS-COV-2) Not Detected Not Detected INTERP RETATION: No (test code = 22900-9) detect able levels of SARS-CoV-2 Coronavirus (COVID-19) [...] mole cular diagnostic assa y utilizes Vacuum Tank Tender Mediated Amplification ( TMA) technology to r apidly detect the SARS -CoV-2 (COVID-19) viru s from respiratory adriana ples. In accordance w ith the FDA's kamran nce document "Polic y for Diagnostic Test s for Coronavirus Disease-2019 du ring the Public [facility] Emergency", thi s test was developed, and its performance characteristics were verified by the [facility] molecular diagn ostics laboratory and is authorized for clinical diagno stic use. This labor atory is certified un estevan the Clinical Laboratory Improvement Amendments (CLI A) as qualified to pe rform high complexity clinical labora tory testing. Lab Interpretation Normal (test code = 25953-9) [facility], CoVID-19, [id number] 01:07:20 Test Item Value Reference Range Interpretation Comments COVID-19 (SARS-COV-2) Not Detected Not Detected INTERP RETATION: No (test code = 73915-1) detect able levels of SARS-CoV-2 Coronavirus (COVID-19) [...] mole cular diagnostic assa y utilizes Vacuum Tank Tender Mediated Amplification ( TMA) technology to r apidly detect the SARS -CoV-2 (COVID-19) viru s from respiratory adriana ples. In accordance w ith the FDA's kamran nce document "Polic y for Diagnostic Test s for Coronavirus Disease-2019 du ring the Public [facility] Emergency", thi s test was developed, and its performance characteristics were verified by the [facility] molecular diagn ostics laboratory and is authorized for clinical diagno stic use. This labor atory is certified un estevan the Clinical Laboratory Improvement Amendments (CLI A) as qualified to pe rform high complexity clinical labora tory testing. Lab Interpretation Normal (test code = 90868-4) [facility]ardronavirus, CoVID-19, [id number] 01:07:20 Test Item Value Reference Range Interpretation Comments COVID-19 (SARS-COV-2) Not Detected Not Detected INTERP RETATION: No (test code = 23938-8) detect able levels of SARS-CoV-2 Coronavirus (COVID-19) [...] mole cular diagnostic assa y utilizes Vacuum Tank Tender Mediated Amplification ( TMA) technology to r apidly detect the SARS -CoV-2 (COVID-19) viru s from respiratory adriana ples. In accordance w ith the FDA's kamran nce document "Polic y for Diagnostic Test s for Coronavirus Disease-2019 du ring the Public [facility]al Emergency", thi s test was developed, and its performance characteristics were verified by the [facility] molecular diagn ostics laboratory and is authorized for clinical diagno stic use. This labor atory is certified un estevan the Clinical Laboratory Improvement Amendments (CLI A) as qualified to pe rform high complexity clinical labora tory testing. Lab Interpretation Normal (test code = 01597-1) [facility], CoVID-19, [id number] 01:07:20 Test Item Value Reference Range Interpretation Comments COVID-19 (SARS-COV-2) Not Detected Not Detected INTERP RETATION: No (test code = 62784-0) detect able levels of SARS-CoV-2 Coronavirus (COVID-19) [...] mole cular diagnostic assa y utilizes Vacuum Tank Tender Mediated Amplification ( TMA) technology to r apidly detect the SARS -CoV-2 (COVID-19) viru s from respiratory adriana ples. In accordance w ith the FDA's kamran nce document "Polic y for Diagnostic Test s for Coronavirus Disease-2019 du [facility] Emergency", thi s test was developed, and its performance characteristics were verified by the [facility] molecular diagn ostics laboratory and is authorized for clinical diagno stic use. This labor atory is certified un estevan the Clinical Laboratory Improvement Amendments (CLI A) as qualified to pe rform high complexity clinical labora tory testing. Lab Interpretation Normal (test code = 64089-3) [facility], CoVID-19, [id number] 01:07:20 Test Item Value Reference Range Interpretation Comments COVID-19 (SARS-COV-2) Not Detected Not Detected INTERP RETATION: No (test code = 21102-8) detect able levels of SARS-CoV-2 Coronavirus (COVID-19) [...] mole cular diagnostic assa y utilizes Vacuum Tank Tender Mediated Amplification ( TMA) technology to r apidly detect the SARS -CoV-2 (COVID-19) viru s from respiratory adriana ples. In accordance w ith the FDA's kamran nce document "Polic y for Diagnostic Test s for Coronavirus Disease-2019 du [facility] the Public [facility] Emergency", thi s test was developed, and its performance characteristics were verified by the [facility] molecular diagn ostics laboratory and is authorized for clinical diagno stic use. This labor atory is certified un estevan the Clinical Laboratory Improvement Amendments (CLI A) as qualified to pe rform high complexity clinical labora tory testing. Lab Interpretation Normal (test code = 88266-4) [facility], CoVID-19, [id number] 01:07:20 Test Item Value Reference Range Interpretation Comments COVID-19 (SARS-COV-2) Not Detected Not Detected INTERP RETATION: No (test code = 18297-4) detect able levels of SARS-CoV-2 Coronavirus (COVID-19) [...] mole cular diagnostic assa y utilizes Vacuum Tank Tender Mediated Amplification ( TMA) technology to r apidly detect the SARS -CoV-2 (COVID-19) viru s from respiratory adriana ples. In accordance w ith the FDA's kamran nce document "Polic y for Diagnostic Test s for Coronavirus Disease-2018 du ring the Public [facility] th Emergency", thi s test was developed, and its performance characteristics were verified by the [facility] molecular diagn ostics laboratory and is authorized for clinical diagno stic use. This labor atory is certified un estevan the Clinical Laboratory Improvement Amendments (CLI A) as qualified to pe rform high complexity clinical labora tory testing. Lab Interpretation Normal (test code = 72062-0) [facility], CoVID-19, [id number] 01:07:20 Test Item Value Reference Range Interpretation Comments COVID-19 (SARS-COV-2) Not Detected Not Detected INTERP RETATION: No (test code = 89040-7) detect able levels of SARS-CoV-2 Coronavirus (COVID-19) [...] mole cular diagnostic assa y utilizes Vacuum Tank Tender Mediated Amplification ( TMA) technology to r apidly detect the SARS -CoV-2 (COVID-19) viru s from respiratory adriana ples. In accordance w ith the FDA's kamran nce document "Polic y for Diagnostic Test s for Coronavirus Disease-2019 du ring the Public [facility] Emergency", thi s test was developed, and its performance characteristics were verified by the [facility] molecular diagn ostics laboratory and is authorized for clinical diagno stic use. This labor atory is certified un estevan the Clinical Laboratory Improvement Amendments (CLI A) as qualified to pe rform high complexity clinical labora tory testing. Lab Interpretation Normal (test code = 00223-8) [facility], CoVID-19, [id number] 01:07:20 Test Item Value Reference Range Interpretation Comments COVID-19 (SARS-COV-2) Not Detected Not Detected INTERP RETATION: No (test code = 95564-8) detect able levels of SARS-CoV-2 Coronavirus (COVID-19) [...] mole cular diagnostic assa y utilizes Vacuum Tank Tender Mediated Amplification ( TMA) technology to r apidly detect the SARS -CoV-2 (COVID-19) viru s from respiratory adriana ples. In accordance w ith the FDA's kamran nce document "Polic y for Diagnostic Test s for Coronavirus Disease-2019 du ring the Public [facility]al Emergency", thi s test was developed, and its performance characteristics were verified by the [facility] molecular diagn ostics laboratory and is authorized for clinical diagno stic use. This labor atory is certified un estevan the Clinical Laboratory Improvement Amendments (CLI A) as qualified to pe rform high complexity clinical labora tory testing. Lab Interpretation Normal (test code = 34093-0) [facility] ORF1ab Resp Ql OLENA+[id number] 01:07:20 Test Item Value Reference Range Interpretation Comments Hospitalized? (test No code = 20713-2) ICU? (test code = No 61224-1) Symptomatic as No defined by CDC? (test code = 24340-2) Employed in No Healthcare? (test code = 58066-6) Resident in a No congregate care setting (including nursing homes, residential care for people with intellectual and developmental disabilities, psychiatric treatment facilities, group homes, board and care homes, homeless senior living, foster care or other): (test code = 82663-2) SARS-CoV-2 ORF1ab NOT DETECTED Not Detected INTERPRETA TION: No Resp Ql OLENA+probe detectable levels of (test code = SARS-CoV-2 82612-3) Coronavirus (COVID-19) were present in this patient's [...] mole cular diagnostic assa y utilizes Vacuum Tank Tender Mediated Amplification ( TMA) technology to r apidly detect the SARS -CoV-2 (COVID-19) viru s from respiratory adriana ples. In accordance with\\XC2A0\\the FDA's guidance docume nt "Policy for Diagnostic Test s for Coronavirus Disease-2019 du [facility] the Public [facility] Emergency", ginger s test was developed, and its performance characteristics were verified by the [facility] molecular diagn ostics laboratory and is authorized for clinical diagno stic use. \\XC2A0\\Thi s laboratory is certified under the Clinical Labora tory Improvement Amendments (CLI A) as qualified to pe rform high complexity clinical labora tory testing. [facility] GLU[facility] docked [id number] 08:09:01 Test Item Value Reference Range Interpretation Comments Glucose POC (test code = 16017276) 85 mg/dL 74-106 Lab Interpretation (test code = Normal 78251-3) [facility] GLUCOSE POC docked [id number] 08:09:01 Test Item Value Reference Range Interpretation Comments Glucose POC (test code = 34905031) 85 mg/dL 74-106 Lab Interpretation (test code = Normal 21208-7) [facility] GLUCOSE POC docked [id number] 08:09:01 Test Item Value Reference Range Interpretation Comments Glucose POC (test code = 32287358) 85 mg/dL 74-106 Lab Interpretation (test code = Normal 69528-9) [facility] [id number] 08:09:01 Test Item Value Reference Range Interpretation Comments Glucose POC (test code = 78562472) 85 mg/dL 74-106 Lab Interpretation (test code = Normal 06173-1) [facility] [id number] 08:09:01 Test Item Value Reference Range Interpretation Comments Glucose POC (test code = 97580450) 85 mg/dL 74-106 Lab Interpretation (test code = Normal 72159-1) [facility] [id number] 08:09:01 Test Item Value Reference Range Interpretation Comments Glucose POC (test code = 07832745) 85 mg/dL 74-106 Lab Interpretation (test code = Normal 41736-2) [facility] [id number] 08:09:01 Test Item Value Reference Range Interpretation Comments Glucose POC (test code = 90299721) 85 mg/dL 74-106 Lab Interpretation (test code = Normal 96269-1) [facility] [id number] 08:09:01 Test Item Value Reference Range Interpretation Comments Glucose POC (test code = 18940879) 85 mg/dL 74-106 Lab Interpretation (test code = Normal 26008-0) [facility] [id number] 08:09:01 Test Item Value Reference Range Interpretation Comments Glucose POC (test code = 86276239) 85 mg/dL 74-106 Lab Interpretation (test code = Normal 93838-8) [facility] [id number] 08:09:01 Test Item Value Reference Range Interpretation Comments Glucose POC (test code = 29600757) 85 mg/dL 74-106 Lab Interpretation (test code = Normal 69270-6) [facility] [id number] 08:09:01 Test Item Value Reference Range Interpretation Comments Glucose POC (test code = 85207395) 85 mg/dL 74-106 Lab Interpretation (test code = Normal 22470-6) [facility]uyuWWOB-PjJ-2 ORF1ab Resp Ql OLENA+[id number] 23:25:40 Test Item Value Reference Range Interpretation Comments Hospitalized? (test No code = 75349-2) ICU? (test code = No 83798-1) Symptomatic as No defined by CDC? (test code = 98960-4) Employed in No Healthcare? (test code = 94776-0) Resident in a No congregate care setting (including nursing homes, residential care for people with intellectual and developmental disabilities, psychiatric treatment facilities, group homes, board and care homes, homeless senior living, foster care or other): (test code = 06653-6) SARS-CoV-2 ORF1ab NOT DETECTED Not Detected INTERPRETA TION: No Resp Ql OLENA+probe detectable levels of (test code = SARS-CoV-2 74965-2) Coronavirus (COVID-19) were present in this patient's [...] mole cular diagnostic assa y utilizes Vacuum Tank Tender Mediated Amplification ( TMA) technology to r apidly detect the SARS -CoV-2 (COVID-19) viru s from respiratory adriana ples. In accordance with\\XC2A0\\the FDA's guidance docume nt "Policy for Diagnostic Test s for Coronavirus Disease-2019 du [facility] Emergency", ginger s test was developed, and its performance characteristics were verified by the [facility] molecular diagn ostics laboratory and is authorized for clinical diagno stic use. \\XC2A0\\Thi s laboratory is certified under the Clinical Labora tory Improvement Amendments (CLI A) as qualified to pe rform high complexity clinical labora tory testing. HHS12 Lead [id number] 15:46:[address] [facility] Test Date: 1307-58-31Jme Name: DORA JOSEPH Department: 5ECIPatient ID: [id number] Room: Gender: M Assessment Analyst: [id number]: 1970 Requested By: DARRION Cho Number: [id number] Reading MD: Rene Patterson MeasurementsIntervals [place] Rate: 61 P: 72PR: 152 QRS: 55QRSD: 106 T: 63QT: 398 QTc: 400 Interpretive StatementsSINUS RHYTHMPOSSIBLE RIGHT VENTRICULAR CONDUCTION DELAY [RSR (QR) IN V1/V2]Electronically Signed On 01-22-2022 8:30:45 CDT by Rene Valle Tbqkor00 Lead [id number] 15:46:[address] [facility] Test Date: 8832-15-93Ovs Name: DORA JOSEPH Department: 5EPatient ID: [id number] Room: Gender: M Assessment Analyst: [id number]: 1970 Requested By: DARRION Cho Number: [id number] Reading MD: Rene Patterson MeasurementsIntervals [place] Rate: 61 P: 72PR: 152 QRS: 55QRSD: 106 T: 63QT: 398 QTc: 400 Interpretive StatementsSINUS RHYTHMPOSSIBLE RIGHT VENTR ICULAR CONDUCTION DELAY [RSR (QR) IN V1/V2]Electronically Signed On 01-22-2022 8:30:45 CDT by Rene Valle Lxavxb91 Lead [id number] 15:46:[address] [facility] Test Date: 5823-06-03Uta Name: DORA JOSEPH Department: 5ECIPatient ID: [id number] Room: Gender: M Assessment Analyst: [id number]: 1970 Requested By: DARRION Cho Number: [id number] Reading : Rene Patterson MeasurementsIntervals [place] Rate: 61 P: 72PR: 152 QRS: 55QRSD: 106 T: 63QT: 398 QTc: 400 Interpretive StatementsSINUS RHYTHMPOSSIBLE RIGHT VENTRICULAR CONDUCTION DELAY [RSR (QR) IN V1/V2]Electronically Signed On 01-22-2022 8:30:45 CDT by [place] [address] Lead [id number] 15:46:[address] [facility] Test Date: 7998-57-66Ule Name: DORA JOSEPH Department: 5ECIPatient ID: [id number] Room: Gender: M Assessment Analyst: [id number]: 1970 Requested By: DARRION Cho Number: [id number] Reading MD: Rene Patterson MeasurementsIntervals [place] Rate: 61 P: 72PR: 152 QRS: 55QRSD: 106 T: 63QT: 398 QTc: 400 Interpretive StatementsSINUS RHYTHMPOSSIBLE RIGHT VENTRICULAR CONDUCTION DELAY [RSR (QR) IN V1/V2]Electronically Signed On 01-22-2022 8:30:45 CDT by [facility] HospitalDogTime MediaJudith [place] [address] Lead [id number] 15:46:[address] [facility] Test Date: 7263-95-43Ium Name: DORA JOSEPH Department: 5ECIPatient ID: [id number] Room: Gender: M Assessment Analyst: [id number]: 1970 Requested By: DARRION Cho Number: [id number] Reading MD: Rene Patterson MeasurementsIntervals [place] Rate: 61 P: 72PR: 152 QRS: 55QRSD: 106 T: 63QT: 398 QTc: 400 Interpretive StatementsSINUS RHYTHMPOSSIBLE RIGHT VENTRICULAR CONDUCTION DELAY [RSR (QR) IN V1/V2]Electronically Signed On 01-22-2022 8:30:45 CDT by [facility] HospitalDebbyThe [facility]12 Lead [id number] 15:46:[address] [facility] Test Date: 1776-67-47Bbd Name: DORA JOSEPH Department: 5ECIPatient ID: [id number] Room: Gender: M Assessment Analyst: [id number]: 1970 Requested By: DARRION Cho Number: [id number] Reading MD: Rene Patterson MeasurementsIntervals [place] Rate: 61 P: 72PR:152 QRS: 55QRSD: 106 T: 63QT: 398 QTc: 400 Interpretive StatementsSINUS RHYTHMPOSSIBLE RIGHT VENTRIC ULAR CONDUCTION DELAY [RSR (QR) IN V1/V2]Electronically Signed On 01-22-2022 8:30:45 CDT by Rene Valle Xrzqrq71 Lead [id number] 15:46:[address] [facility] Test Date: 3046-16-43Gsk Name: DORA JOSEPH Department: 5ECIPatient ID: [id number] Room: Gender: M Assessment Analyst: [id number]: 1970 Requested By: DARRION Cho Number: [id number] Reading MD: Rene Patterson MeasurementsIntervals [place] Rate: 61 P: 72PR: 152 QRS: 55QRSD: 106 T: 63QT: 398 QTc: 400 Interpretive StatementsSINUS RHYTHMPOSSIBLE RIGHT VENTRICULAR CONDUCTION DELAY [RSR (QR) IN V1/V2]Electronically Signed On 01-22-2022 8:30:45 CDT by Rene Valle Qgityx10 Lead [id number] 15:46:[address] [facility] Test Date: 7473-79-50Rkq Name: DORA JOSEPH Department: 5ECIPatient ID: [id number] Room: Gender: M Assessment Analyst: [id number]: 1970 Requested By: DARRION Cho Number: [id number] Reading MD: Rene Patterson MeasurementsIntervals [place] Rate: 61 P: 72PR : 152 QRS: 55QRSD: 106 T: 63QT: 398 QTc: 400 Interpretive StatementsSINUS RHYTHMPOSSIBLE RIGHT VENTRICULAR CONDUCTION DELAY [RSR (QR) IN V1/V2]Electronically Signed On 01-22-2022 8:30:45 CDT by Rene HerFormerly [facility]12 Lead [id number] 15:46:[address] [facility] Test Date: 4424-12-42Hbo Name: DORA JOSEPH Department: 5ECIPatient ID: [id number] Room: Gender: M Assessment Analyst: [id number]: 1970 Requested By: DARRION Cho Number: [id number] Reading MD: Rene Patterson MeasurementsIntervals [place] Rate: 61 P: 72PR: 152 QRS: 55QRSD: 106 T: 63QT: 398 QTc: 400 Interpretive StatementsSINUS RHYTHMPOSSIBLE RIGHT VENTRICULAR CONDUCTION DELAY [RSR (QR) IN V1/V2]Electronically Signed On 01-22-2022 8:30:45 CDT by Rene AvitiaTransparency SoftwareCompadzilth-na-o-dith-hle health center Dyespr62 Lead [id number] 15:46:[address] [facility] Test Date: 4944-91-87Uwk Name: DORA JOSEPH Department: 5ECIPatient ID: [id number] Room: Gender: M Assessment Analyst: [id number]: 1970 Requested By: DARRION Cho Number: [id number] Reading MD: Rene Patterson MeasurementsIntervals [place] Rate: 61 P: 72PR: 152 QRS: 55QRSD: 106 T: 63QT: 398 QTc: 400 Interpretive StatementsSINUS RHYTHMPOSSIBLE RIGHT VENTR ICULAR CONDUCTION DELAY [RSR (QR) IN V1/V2]Electronically Signed On 01-22-2022 8:30:45 CDT by Renerick AvitiaLACompadzilth-na-o-dith-hle health center Hwtjqa09 Lead [id number] 15:46:[address] [facility] Test Date: 3914-25-85Ewk Name: DORA JOSEPH Department: 5ECIPatient ID: [id number] Room: Gender: M Assessment Analyst: [id number]: 1970 Requested By: DARRION Cho Number: [id number] Reading MD: Rene Patterson MeasurementsIntervals [place] Rate: 61 P: 72PR: 152 QRS: 55QRSD: 106 T: 63QT: 398 QTc: 400 Interpretive StatementsSINUS RHYTHMPOSSIBLE RIGHT VENTRICULAR CONDUCTION DELAY [RSR (QR) IN V1/V2]Electronically Signed On 01-22-2022 8:30:45 CDT by [facility] HealthcareRelationship AnalyticsDebbyTransparency SoftwareCompaJustShareIt [facility] [place] Ab+HIV1 p24 Ag SerPl Ql [id number] 07:02:58 Test Item Value Reference Range Interpretation Comments HIV 1+2 Ab+HIV1 p24 Ag SerPl Ql IA NEGATIVE Negative (test code = 70791-7) [id number] 21:23:[address] [facility] Test Date: 2615-12-38Jza Name: DORA PAEZRY Department: 5520Patient ID: [id number] Room: 1J02Zafcjd: M Assessment Analyst: : 1970 Requested By: JESSICA AOrder Number: [id number] Reading MD: Chiara Calles MeasurementsIntervals [place] Rate: 72 P: 90PR: 157 QRS: 87QRSD: 105 T: 90QT: 360 QTc: 384 Interpretive StatementsSINUS RHYTHMPOSSIBLE RIGHT VENTRICULAR CONDUCTION DELAY [RSR (QR) IN V1/V2]EARLY REPOLARIZATION [ST ELEVATION WITH NORMALLY INFLECTED T- WAVE]Electronically Signed On 01-17-2022 13:02:30 [facility] Money[facility]co[facility] [place] hospitalDialsCynthia [place] [id number] 21:23:[address] [facility] Test Date: [id number] Name: DORA [place] Department: 5520Patient ID: [id number] Room: 8T42Uqjjzl: M Assessment Analyst: : 1970 Requested By: KARIN BASSETT AOrder Number: [id number] Reading MD: Chiara Calles MeasurementsIntervals [place] Rate: 72 P: 90PR: 157 QRS: 87QRSD: 105 T: 90QT: 360 QTc: 384 Interpretive StatementsSINUS RHYTHMPOSSIBLE RIGHT VENTRICULAR CONDUCTION DELAY [RSR (QR) IN V1/V2]EARLY REPOLARIZATION [ST ELEVATION WITH NORMALLY INFLECTED T- WAVE]Electronically Signed On 01-17-2022 13:02:30 CDT by [facility] TRAILBLAZE FITNESS CONSULTINGCynthia [place] [id number] 21:23:[address] [facility] Test Date: [id number] Name: DORA [place] Department: 5520Patient ID: [id number] Room: 5B72Xxkdpa: M Assessment Analyst: : 1970 Requested By: KARIN BASSETT AOrder Number: [id number] Reading MD: Chiara Calles MeasurementsIntervals [place] Rate: 72 P: 90PR: 157 QRS: 87QRSD: 105 T: 90QT: 360 QTc: 384 Interpretive StatementsSINUS RHYTHMPOSSIBLE RIGHT VENTRICULAR CONDUCTION DELAY [RSR (QR) IN V1/V2]EARLY REPOLARIZATION [ST ELEVATION WITH NORMALLY INFLECTED T-WA VE]Electronically Signed On 01-17-2022 13:02:30 CDT by [facility] MoneyLionco[facility] [place] hospitalDialsCynthia Ville [address]NngwcbXGB7863-79-03 21:23:[address] [facility] Test Date: [id number] Name: DORA JOSEPH Department: 5520Patient ID: [id number] Room: 8Y14Tupvoa: M Assessment Analyst: : 1970 Requested By: KARIN BASSETT AOrder Number: [id number] Reading MD: Chiara Calles MeasurementsIntervals [place] Rate: 72 P: 90PR:157 QRS: 87QRSD: 105 T: 90QT: 360 QTc: 384 Interpretive StatementsSINUS RHYTHMPOSSIBLE RIGHT VENTRICULAR CONDUCTION DELAY [RSR (QR) IN V1/V2]EARLY REPOLARIZATION [ST ELEVATION WITH NORMALLY INFLECTED T- WAVE]Electronically Signed On 01-17-2022 13:02:30 CDT by [facility] TRAILBLAZE FITNESS CONSULTINGformerly [facility] HospitalFwculqXIO1470-66-24 21:23:[address] [facility] Test Date: [id number] Name: DORA JOSEPH Department: 5520Patient ID: [id number] Room: 8V23Rzgdxh: M Assessment Analyst: : 1970 Requested By: KARIN BASSETT AOrder Number: [id number] Reading MD: Chiara Calles MeasurementsIntervals [place] Rate: 72 P: 90PR:157 QRS: 87QRSD: 105 T: 90QT: 360 QTc: 384 Interpretive StatementsSINUS RHYTHMPOSSIBLE RIGHT VENTRICULAR CONDUCTION DELAY [RSR (QR) IN V1/V2]EARLY REPOLARIZATION [ST ELEVATION WITH NORMALLY INFLECTED T- WAVE]Electronically Signed On 01-17-2022 13:02:30 CDT by [facility] MoneyLionJacob [place] 57944022-05-26 21:23:[address] [facility] Test Date: 8628-76-05Zqs Name: DORA JOSEPH Department: 5520Patient ID: [id number] Room: 9L73Lbpzku: M Assessment Analyst: : 1970 Requested By: KARIN BASSETT AOrder Number: [id number] Reading MD: Chiara Calles MeasurementsIntervals [place] Rate: 72 P: 90PR:157 QRS: 87QRSD: 105 T: 90QT: 360 QTc: 384 Interpretive StatementsSINUS RHYTHMPOSSIBLE RIGHT VENTRICULAR CONDUCTION DELAY [RSR (QR) IN V1/V2]EARLY REPOLARIZATION [ST ELEVATION WITH NORMALLY INFLECTED T- WAVE]Electronically Signed On 01-17-2022 13:02:30 CDT by [facility]ertonS[facility] Power LimitedCynthia V[place] [id number] 21:23:[address] [facility] Test Date: [id number] Name: DORA JOSEPH Department: 5520Patient ID: [id number] Room: 6S75Bxkehi: M Assessment Analyst: : 1970 Requested By: JESSICA AOrder Number: [id number] Reading MD: Chiara Calles MeasurementsIntervals [place] Rate: 72 P: 90PR: 157 QRS: 87QRSD: 105 T: 90QT: 360 QTc: 384 Interpretive StatementsSINUS RHYTHMPOSSIBLE RIGHT VENTRICULAR CONDUCTION DELAY [RSR (QR) IN V1/V2]EARLY REPOLARIZATION [ST ELEVATION WITH NORMALLY INFLECTED T- WAVE]Electronically Signed On 01-17-2022 13:02:30 CDT [facility] FITNESS CONSULTINGCynthia [place] [address]IbboulOCN0434-67-97 21:23:[address] [facility] Test Date: [id number] Name: DORA JOSEPH Department: 5520Patient ID: [id number] Room: 9H85Uglvcz: M Assessment Analyst: : 1970 Requested By: KARIN BASSETT AOrder Number: [id number] Reading MD: Chiara Calles MeasurementsIntervals [place] Rate: 72 P: 90PR:157 QRS: 87QRSD: 105 T: 90QT: 360 QTc: 384 Interpretive StatementsSINUS RHYTHMPOSSIBLE RIGHT VENTRICULAR CONDUCTION DELAY [RSR (QR) IN V1/V2]EARLY REPOLARIZATION [ST ELEVATION WITH NORMALLY INFLECTED T- WAVE]Electronically Signed On 01-17-2022 13:02:30 CDT by [facility]PillGuardCynthia [facility] [id number] 21:23:[address] [facility] Test Date: [id number] Name: DORA JOSEPH Department: 5520Patient ID: [id number] Room: 6B78Brlcmr: M Assessment Analyst: : 1970 Requested By: KARIN Ryan Number: [id number] Reading MD: Chiara Calles MeasurementsIntervals [place] Rate: 72 P: 90PR:157 QRS: 87QRSD: 105 T: 90QT: 360 QTc: 384 Interpretive StatementsSINUS RHYTHMPOSSIBLE RIGHT VENTRICULAR CONDUCTION DELAY [RSR (QR) IN V1/V2]EARLY REPOLARIZATION [ST ELEVATION WITH NORMALLY INFLECTED T- WAVE]Electronically Signed On 01-17-2022 13:02:30 CDT by [facility] HospitalPillGuardCynthia [place] [id number] 21:23:[address] [facility] Test Date: [id number] Name: DORA JOSEPH Department: 5520Patient ID: [id number] Room: 9H81Bzzjwh: M Assessment Analyst: : 1970 Requested By: KARIN Ryan Number: [id number] Reading MD: Chiara Calles MeasurementsIntervals [place] Rate: 72 P: 90PR: 157 QRS: 87QRSD: 105 T: 90QT: 360 QTc: 384 Interpretive StatementsSINUS RHYTHMPOSSIBLE RIGHT VENTRICULAR CONDUCTION DELAY [RSR (QR) IN V1/V2]EARLY REPOLARIZATION [ST ELEVATION WITH NORMALLY INFLECTED T- WAVE]Electronically Signed On 01-17-2022 13:02:30 CDT by [place] [id number] 21:23:[address] [facility] Test Date: 2882-54-99Jzg Name: DORA JOSEPH Department: 5520Patient ID: [id number] Room: 5Y67Ocppqv: M Assessment Analyst: : 1970 Requested By: KARIN Ryan Number: [id number] Reading MD: Chiara Calles MeasurementsIntervals [place] Rate: 72 P: 90PR: 157 QRS: 87QRSD: 105 T: 90QT: 360 QTc: 384 Interpretive StatementsSINUS RHYTHMPOSSIBLE RIGHT VENTRICULAR CONDUCTION DELAY [RSR (QR) IN V1/V2]EARLY REPOLARIZATION [ST ELEVATION WITH NORMALLY INFLECTED T- WAVE]Electronically Signed On 01-17-2022 13:02:30 CDT by [facility] CenterRS[facility] ORF1ab Resp Ql OLENA+yzyuu5428-53-85 19:57:49 Test Item Value Reference Range Interpretation Comments Hospitalized? (test No code = 76191-4) ICU? (test code = No 81746-0) Symptomatic as No defined by CDC? (test code = 19108-1) Employed in No Healthcare? (test code = 50900-2) Resident in a No congregate care setting (including nursing homes, residential care for people with intellectual and developmental disabilities, psychiatric treatment facilities, group homes, board and care homes, homeless senior living, foster care or other): (test code = 70806-5) SARS-CoV-2 ORF1ab NOT DETECTED Not Detected INTERPRETA TION: No Resp Ql OLENA+probe detectable levels of (test code = SARS-CoV-2 65843-2) Coronavirus (COVID-19) were present in this patient's [...] mole cular diagnostic assa y utilizes Vacuum Tank Tender Mediated Amplification ( TMA) technology to r apidly detect the SARS -CoV-2 (COVID-19) viru s from respiratory adriana ples. In accordance with\\XC2A0\\the FDA's guidance docume nt "Policy for Diagnostic Test s for Coronavirus Disease-2019 du ring the Public Heal th Emergency", ginger s test was developed, and its performance characteristics were verified by the [facility] molecular diagn ostics laboratory and is authorized for clinical diagno stic use. \\XC2A0\\Ginger s laboratory is certified under the Clinical Labora tory Improvement Amendments (CLI A) as qualified to pe rform high complexity clinical labora tory testing. [facility] CREATININE POC docked [id number] 13:57:55 Test Item Value Reference Range Interpretation Comments Creatinine POC (test 2.4 mg/dL 0.6-1.3 H Physici an Notified code = 31300122) eGFR If non- Am 30 See_Comment L [Aut omated message] (test code = 71082687) The s ystem which generated this result transmit dain reference range : >=90 mL/min/1.7 3 m2. The reference r meredith was not used to interpret this result as normal/abnormal . eGFR If Am (test 35 See_Comment L [A utomated message] code = 84973032) The system which generated this result transmit dain reference range : >=90 mL/min/1.7 3 m2. The reference r meredith was not used to interpret this result as normal/abnormal . Lab Interpretation (test Abnormal code = 23664-4) [facility] CREATININE POC docked [id number] 13:57:55 Test Item Value Reference Range Interpretation Comments Creatinine POC (test 2.4 mg/dL 0.6-1.3 H Physici an Notified code = 05756255) eGFR If non- Am 30 See_Comment L [Aut omated message] (test code = 33871591) The s ystem which generated this result transmit dain reference range : >=90 mL/min/1.7 3 m2. The reference r meredith was not used to interpret this result as normal/abnormal . eGFR If Am (test 35 See_Comment L [A utomated message] code = 69454377) The system which generated this result transmit dain reference range : >=90 mL/min/1.7 3 m2. The reference r meredith was not used to interpret this result as normal/abnormal . Lab Interpretation (test Abnormal code = 35468-1) [facility] CREATININE POC docked [id number] 13:57:55 Test Item Value Reference Range Interpretation Comments Creatinine POC (test 2.4 mg/dL 0.6-1.3 H Physici an Notified code = 60528475) eGFR If non- Am 30 See_Comment L [Aut omated message] (test code = 48617089) The s ystem which generated this result transmit dain reference range : >=90 mL/min/1.7 3 m2. The reference r meredith was not used to interpret this result as normal/abnormal . eGFR If Am (test 35 See_Comment L [A utomated message] code = 35383015) The system which generated this result transmit dain reference range : >=90 mL/min/1.7 3 m2. The reference r meredith was not used to interpret this result as normal/abnormal . Lab Interpretation (test Abnormal code = 78220-5) [facility] CREATININE POC docked [id number] 13:57:55 Test Item Value Reference Range Interpretation Comments Creatinine POC (test 2.4 mg/dL 0.6-1.3 H Physici an Notified code = 18613065) eGFR If non- Am 30 See_Comment L [Aut omated message] (test code = 23026076) The s ystem which generated this result transmit dain reference range : >=90 mL/min/1.7 3 m2. The reference r meredith was not used to interpret this result as normal/abnormal . eGFR If Am (test 35 See_Comment L [A utomated message] code = 22380645) The system which generated this result transmit dain reference range : >=90 mL/min/1.7 3 m2. The reference r meredith was not used to interpret this result as normal/abnormal . Lab Interpretation (test Abnormal code = 22175-0) [facility] [id number] 13:57:55 Test Item Value Reference Range Interpretation Comments Creatinine POC (test 2.4 mg/dL 0.6-1.3 H Physici an Notified code = 25880181) eGFR If non- Am 30 See_Comment L [Aut omated message] (test code = 82389095) The s ystem which generated this result transmit dain reference range : >=90 mL/min/1.7 3 m2. The reference r meredith was not used to interpret this result as normal/abnormal . eGFR If Am (test 35 See_Comment L [A utomated message] code = 65754840) The system which generated this result transmit dain reference range : >=90 mL/min/1.7 3 m2. The reference r meredith was not used to interpret this result as normal/abnormal . Lab Interpretation (test Abnormal code = 37179-8) [facility] CREATININE POC docked [id number] 13:57:55 Test Item Value Reference Range Interpretation Comments Creatinine POC (test 2.4 mg/dL 0.6-1.3 H Physici an Notified code = 48193417) eGFR If non- Am 30 See_Comment L [Aut omated message] (test code = 48721944) The s ystem which generated this result transmit dain reference range : >=90 mL/min/1.7 3 m2. The reference r meredith was not used to interpret this result as normal/abnormal . eGFR If Am (test 35 See_Comment L [A utomated message] code = 98574912) The system which generated this result transmit dain reference range : >=90 mL/min/1.7 3 m2. The reference r meredith was not used to interpret this result as normal/abnormal . Lab Interpretation (test Abnormal code = 43936-3) [facility] CREATININE POC docked [id number] 13:57:55 Test Item Value Reference Range Interpretation Comments Creatinine POC (test 2.4 mg/dL 0.6-1.3 H Physici an Notified code = 02354928) eGFR If non- Am 30 See_Comment L [Aut omated message] (test code = 05367956) The s ystem which generated this result transmit dain reference range : >=90 mL/min/1.7 3 m2. The reference r meredith was not used to interpret this result as normal/abnormal . eGFR If Am (test 35 See_Comment L [A utomated message] code = 21230132) The system which generated this result transmit dain reference range : >=90 mL/min/1.7 3 m2. The reference r meredith was not used to interpret this result as normal/abnormal . Lab Interpretation (test Abnormal code = 18730-7) [facility] [id number] 13:57:55 Test Item Value Reference Range Interpretation Comments Creatinine POC (test 2.4 mg/dL 0.6-1.3 H Physici an Notified code = 50766674) eGFR If non- Am 30 See_Comment L [Aut omated message] (test code = 58798677) The s ystem which generated this result transmit dain reference range : >=90 mL/min/1.7 3 m2. The reference r meredith was not used to interpret this result as normal/abnormal . eGFR If Am (test 35 See_Comment L [A utomated message] code = 68321027) The system which generated this result transmit dain reference range : >=90 mL/min/1.7 3 m2. The reference r meredith was not used to interpret this result as normal/abnormal . Lab Interpretation (test Abnormal code = 65993-2) [facility] CREATININE POC docked [id number] 13:57:55 Test Item Value Reference Range Interpretation Comments Creatinine POC (test 2.4 mg/dL 0.6-1.3 H Physici an Notified code = 67330669) eGFR If non- Am 30 See_Comment L [Aut omated message] (test code = 44650504) The s ystem which generated this result transmit dain reference range : >=90 mL/min/1.7 3 m2. The reference r meredith was not used to interpret this result as normal/abnormal . eGFR If Am (test 35 See_Comment L [A utomated message] code = 68066329) The system which generated this result transmit dain reference range : >=90 mL/min/1.7 3 m2. The reference r meredith was not used to interpret this result as normal/abnormal . Lab Interpretation (test Abnormal code = 20130-3) [facility] [id number] 13:57:55 Test Item Value Reference Range Interpretation Comments Creatinine POC (test 2.4 mg/dL 0.6-1.3 H Physici an Notified code = 13384223) eGFR If non- Am 30 See_Comment L [Aut omated message] (test code = 50136264) The s ystem which generated this result transmit dain reference range : >=90 mL/min/1.7 3 m2. The reference r meredith was not used to interpret this result as normal/abnormal . eGFR If Am (test 35 See_Comment L [A utomated message] code = 47062912) The system which generated this result transmit dain reference range : >=90 mL/min/1.7 3 m2. The reference r meredith was not used to interpret this result as normal/abnormal . Lab Interpretation (test Abnormal code = 72188-5) [facility] CREATININE POC docked [id number] 13:57:55 Test Item Value Reference Range Interpretation Comments Creatinine POC (test 2.4 mg/dL 0.6-1.3 H Physici an Notified code = 19844413) eGFR If non- Am 30 See_Comment L [Aut omated message] (test code = 97352492) The s ystem which generated this result transmit dain reference range : >=90 mL/min/1.7 3 m2. The reference r meredith was not used to interpret this result as normal/abnormal . eGFR If Am (test 35 See_Comment L [A utomated message] code = 11345237) The system which generated this result transmit dain reference range : >=90 mL/min/1.7 3 m2. The reference r meredith was not used to interpret this result as normal/abnormal . Lab Interpretation (test Abnormal code = 54231-5) [facility] BMP POC docked [id number] 13:48:46 Test Item Value Reference Range Interpretation Comments Sodium POC (test code = 126 mmol/L 136-145 L 57986295) Potassium POC (test code 4.4 mmol/L 3.5-5.1 = 94480623) Chloride POC (test code 100 mmol/L 98-107 = 69072524) TCO2 POC (test code = 17 mmol/L 21-32 L Physic aylin Notified 35229949) Urea Nitrogen POC (test 36 mg/dL 7-18 H code = 95019203) Glucose POC (test code = 114 mg/dL 74-106 H 64769219) Hemoglobin POC (test 11.9 g/dL 12-16 L code = 56349170) Hematocrit POC (test 35.0 % 37.0-47.0 L code = 72723271) Lab Interpretation (test Abnormal code = 55949-8) [facility] POC docked [id number] 13:48:46 Test Item Value Reference Range Interpretation Comments Sodium POC (test code = 126 mmol/L 136-145 L 64021491) Potassium POC (test code 4.4 mmol/L 3.5-5.1 = 68748459) Chloride POC (test code 100 mmol/L 98-107 = 24768478) TCO2 POC (test code = 17 mmol/L 21-32 L Physic aylin Notified 20127866) Urea Nitrogen POC (test 36 mg/dL 7-18 H code = 58389074) Glucose POC (test code = 114 mg/dL 74-106 H 47713361) Hemoglobin POC (test 11.9 g/dL 12-16 L code = 09872156) Hematocrit POC (test 35.0 % 37.0-47.0 L code = 01093876) Lab Interpretation (test Abnormal code = 28543-2) [facility] POC docked [id number] 13:48:46 Test Item Value Reference Range Interpretation Comments Sodium POC (test code = 126 mmol/L 136-145 L 90077511) Potassium POC (test code 4.4 mmol/L 3.5-5.1 = 71831745) Chloride POC (test code 100 mmol/L 98-107 = 94928516) TCO2 POC (test code = 17 mmol/L 21-32 L Physic aylin Notified 94064619) Urea Nitrogen POC (test 36 mg/dL 7-18 H code = 96177223) Glucose POC (test code = 114 mg/dL 74-106 H 41386481) Hemoglobin POC (test 11.9 g/dL 12-16 L code = 53658898) Hematocrit POC (test 35.0 % 37.0-47.0 L code = 72708092) Lab Interpretation (test Abnormal code = 37221-3) [facility] POC docked [id number] 13:48:46 Test Item Value Reference Range Interpretation Comments Sodium POC (test code = 126 mmol/L 136-145 L 32367136) Potassium POC (test code 4.4 mmol/L 3.5-5.1 = 36355098) Chloride POC (test code 100 mmol/L 98-107 = 88226100) TCO2 POC (test code = 17 mmol/L 21-32 L Physic aylin Notified 08463059) Urea Nitrogen POC (test 36 mg/dL 7-18 H code = 92588905) Glucose POC (test code = 114 mg/dL 74-106 H 19046507) Hemoglobin POC (test 11.9 g/dL 12-16 L code = 92386885) Hematocrit POC (test 35.0 % 37.0-47.0 L code = 90118178) Lab Interpretation (test Abnormal code = 23099-9) [facility] POC docked [id number] 13:48:46 Test Item Value Reference Range Interpretation Comments Sodium POC (test code = 126 mmol/L 136-145 L 78544356) Potassium POC (test code 4.4 mmol/L 3.5-5.1 = 99781712) Chloride POC (test code 100 mmol/L 98-107 = 32109695) TCO2 POC (test code = 17 mmol/L 21-32 L Physic aylin Notified 60509110) Urea Nitrogen POC (test 36 mg/dL 7-18 H code = 66879808) Glucose POC (test code = 114 mg/dL 74-106 H 38687259) Hemoglobin POC (test 11.9 g/dL 12-16 L code = 33544002) Hematocrit POC (test 35.0 % 37.0-47.0 L code = 67400349) Lab Interpretation (test Abnormal code = 83705-1) [facility] POC docked [id number] 13:48:46 Test Item Value Reference Range Interpretation Comments Sodium POC (test code = 126 mmol/L 136-145 L 67467981) Potassium POC (test code 4.4 mmol/L 3.5-5.1 = 79797326) Chloride POC (test code 100 mmol/L 98-107 = 94551637) TCO2 POC (test code = 17 mmol/L 21-32 L Physic aylin Notified 59616631) Urea Nitrogen POC (test 36 mg/dL 7-18 H code = 46048275) Glucose POC (test code = 114 mg/dL 74-106 H 60355144) Hemoglobin POC (test 11.9 g/dL 12-16 L code = 01782750) Hematocrit POC (test 35.0 % 37.0-47.0 L code = 90753380) Lab Interpretation (test Abnormal code = 18301-9) [facility] POC docked qnzyua9756-26-55 13:48:46 Test Item Value Reference Range Interpretation Comments Sodium POC (test code = 126 mmol/L 136-145 L 20032350) Potassium POC (test code 4.4 mmol/L 3.5-5.1 = 18089882) Chloride POC (test code 100 mmol/L 98-107 = 88549082) TCO2 POC (test code = 17 mmol/L 21-32 L Physic aylin Notified 93093058) Urea Nitrogen POC (test 36 mg/dL 7-18 H code = 97980072) Glucose POC (test code = 114 mg/dL 74-106 H 18195006) Hemoglobin POC (test 11.9 g/dL 12-16 L code = 15252134) Hematocrit POC (test 35.0 % 37.0-47.0 L code = 24838791) Lab Interpretation (test Abnormal code = 72313-2) [facility] POC docked [id number] 13:48:46 Test Item Value Reference Range Interpretation Comments Sodium POC (test code = 126 mmol/L 136-145 L 91051958) Potassium POC (test code 4.4 mmol/L 3.5-5.1 = 68722265) Chloride POC (test code 100 mmol/L 98-107 = 29410363) TCO2 POC (test code = 17 mmol/L 21-32 L Physic aylin Notified 77915003) Urea Nitrogen POC (test 36 mg/dL 7-18 H code = 66381270) Glucose POC (test code = 114 mg/dL 74-106 H 85704634) Hemoglobin POC (test 11.9 g/dL 12-16 L code = 53292196) Hematocrit POC (test 35.0 % 37.0-47.0 L code = 42874314) Lab Interpretation (test Abnormal code = 22737-7) [facility] POC docked nyfkkn2430-85-97 13:48:46 Test Item Value Reference Range Interpretation Comments Sodium POC (test code = 126 mmol/L 136-145 L 79220218) Potassium POC (test code 4.4 mmol/L 3.5-5.1 = 00707307) Chloride POC (test code 100 mmol/L 98-107 = 94683115) TCO2 POC (test code = 17 mmol/L 21-32 L Physic aylin Notified 66340725) Urea Nitrogen POC (test 36 mg/dL 7-18 H code = 03918786) Glucose POC (test code = 114 mg/dL 74-106 H 30796894) Hemoglobin POC (test 11.9 g/dL 12-16 L code = 04815349) Hematocrit POC (test 35.0 % 37.0-47.0 L code = 96268729) Lab Interpretation (test Abnormal code = 27033-0) [facility] POC docked [id number] 13:48:46 Test Item Value Reference Range Interpretation Comments Sodium POC (test code = 126 mmol/L 136-145 L 29299727) Potassium POC (test code 4.4 mmol/L 3.5-5.1 = 67697959) Chloride POC (test code 100 mmol/L 98-107 = 48939602) TCO2 POC (test code = 17 mmol/L 21-32 L Physic aylin Notified 69152445) Urea Nitrogen POC (test 36 mg/dL 7-18 H code = 40412498) Glucose POC (test code = 114 mg/dL 74-106 H 52777070) Hemoglobin POC (test 11.9 g/dL 12-16 L code = 82759885) Hematocrit POC (test 35.0 % 37.0-47.0 L code = 44730496) Lab Interpretation (test Abnormal code = 44012-5) [facility] POC docked [id number] 13:48:46 Test Item Value Reference Range Interpretation Comments Sodium POC (test code = 126 mmol/L 136-145 L 00080466) Potassium POC (test code 4.4 mmol/L 3.5-5.1 = 96239201) Chloride POC (test code 100 mmol/L 98-107 = 15117023) TCO2 POC (test code = 17 mmol/L 21-32 L Physic aylin Notified 02629978) Urea Nitrogen POC (test 36 mg/dL 7-18 H code = 86765218) Glucose POC (test code = 114 mg/dL 74-106 H 41462731) Hemoglobin POC (test 11.9 g/dL 12-16 L code = 55786205) Hematocrit POC (test 35.0 % 37.0-47.0 L code = 12244681) Lab Interpretation (test Abnormal code = 95480-4) [facility] ORF1ab Resp Ql OLENA+ytclp5692-90-74 20:25:16 Test Item Value Reference Range Interpretation Comments Hospitalized? (test No code = 29920-8) ICU? (test code = No 38971-7) Symptomatic as No defined by CDC? (test code = 31723-4) Employed in No Healthcare? (test code = 55400-5) Resident in a No congregate care setting (including nursing homes, residential care for people with intellectual and developmental disabilities, psychiatric treatment facilities, group homes, board and care homes, homeless senior living, foster care or other): (test code = 01431-7) SARS-CoV-2 ORF1ab NOT DETECTED Not Detected INTERPRETA TION: No Resp Ql OLENA+probe detectable levels of (test code = SARS-CoV-2 69370-1) Coronavirus (COVID-19) were present in this patient's [...] mole cular diagnostic assa y utilizes Vacuum Tank Tender Mediated Amplification ( TMA) technology to r apidly detect the SARS -CoV-2 (COVID-19) viru s from respiratory adriana ples. In accordance with\\XC2A0\\the FDA's guidance docume nt "Policy for Diagnostic Test s for Coronavirus Disease-2019 du ring the Public Heal th Emergency", ginger levine test was developed, and its performance characteristics were verified by the [facility] molecular diagn ostics laboratory and is authorized for clinical diagno stic use. \\XC2A0\\Ginger s laboratory is certified under the Clinical Labora tory Improvement Amendments (CLI A) as qualified to pe rform high complexity clinical labora tory testing. [facility] VBG POC docked [id number] 11:16:15 Test Item Value Reference Range Interpretation Comments pH, Pankaj POC (test code 7.32 7.33-7.43 L = 31828754) pCO2,Pankaj POC (test code 31.0 See_Comment L [Au tomated = 56069266) message] The sy stem which generated this result transmitted reference range : 38 - 50 mmHg. The reference range was not used to interpret this result as normal/abnormal . PO2, Venous POC (BKR) 44 See_Comment L [Auto mated (test code = 64814522) messa ge] The system which generated this result transmitted reference range : 50 - 75 mm Hg. The reference range was not used to interpret this result as normal/abnormal . Ionized Calcium POC 1.24 mmol/L 1.15-1.29 (test code = 25648567) HCO3, Pankaj POC (test 16 mmol/L 22-26 L code = 89756720) TCO2 POC (test code = 17 mmol/L 21-32 L 57743517) Base Deficit, Pankaj POC -9 (test code = 08930172) Sample Type (test code IVEN Physi erik Notified = 52454848) % Sat, Pankaj POC (test 77 % code = 76429922) Lab Interpretation Abnormal (test code = 33550-4) [facility] VBG POC docked [id number] 11:16:15 Test Item Value Reference Range Interpretation Comments pH, Pankaj POC (test code 7.32 7.33-7.43 L = 96964340) pCO2,Pankaj POC (test code 31.0 See_Comment L [Au tomated = 97934079) message] The sy stem which generated this result transmitted reference range : 38 - 50 mmHg. The reference range was not used to interpret this result as normal/abnormal . PO2, Venous POC (BKR) 44 See_Comment L [Auto mated (test code = 50006304) [employer] ge] The system which generated this result transmitted reference range : 50 - 75 mm Hg. The reference range was not used to interpret this result as normal/abnormal . Ionized Calcium POC 1.24 mmol/L 1.15-1.29 (test code = 87223149) HCO3, Pankaj POC (test 16 mmol/L 22-26 L code = 97386166) TCO2 POC (test code = 17 mmol/L 21-32 L 86052527) Base Deficit, Pankaj POC -9 (test code = 20149775) Sample Type (test code IVEN Physi erik Notified = 80325774) % Sat, Pankaj POC (test 77 % code = 69502895) Lab Interpretation Abnormal (test code = 41220-5) [facility] VBG POC docked [id number] 11:16:15 Test Item Value Reference Range Interpretation Comments pH, Pankaj POC (test code 7.32 7.33-7.43 L = 08834285) pCO2,Pankaj POC (test code 31.0 See_Comment L [Au tomated = 23296009) message] The sy stem which generated this result transmitted reference range : 38 - 50 mmHg. The reference range was not used to interpret this result as normal/abnormal . PO2, Venous POC (BKR) 44 See_Comment L [Auto mated (test code = 52039078) [employer]] The system which generated this result transmitted reference range : 50 - 75 mm Hg. The reference range was not used to interpret this result as normal/abnormal . Ionized Calcium POC 1.24 mmol/L 1.15-1.29 (test code = 50351217) HCO3, Pankaj POC (test 16 mmol/L 22-26 L code = 41529052) TCO2 POC (test code = 17 mmol/L 21-32 L 37977359) Base Deficit, Pankaj POC -9 (test code = 64442920) Sample Type (test code IVEN Physi erik Notified = 14255105) % Sat, Pankaj POC (test 77 % code = 00317446) Lab Interpretation Abnormal (test code = 57983-2) [facility] VBG POC docked [id number] 11:16:15 Test Item Value Reference Range Interpretation Comments pH, Pankaj POC (test code 7.32 7.33-7.43 L = 45459476) pCO2,Pankaj POC (test code 31.0 See_Comment L [Au tomated = 57282267) message] The sy stem which generated this result transmitted reference range : 38 - 50 mmHg. The reference range was not used to interpret this result as normal/abnormal . PO2, Venous POC (BKR) 44 See_Comment L [Auto mated (test code = 12354107) [employer] ge] The system which generated this result transmitted reference range : 50 - 75 mm Hg. The reference range was not used to interpret this result as normal/abnormal . Ionized Calcium POC 1.24 mmol/L 1.15-1.29 (test code = 60174357) HCO3, Pankaj POC (test 16 mmol/L 22-26 L code = 55094598) TCO2 POC (test code = 17 mmol/L 21-32 L 79021617) Base Deficit, Pankaj POC -9 (test code = 29521497) Sample Type (test code IVFLORENCE Physi erik Notified = 62730349) % Sat, Pankaj POC (test 77 % code = 39741354) Lab Interpretation Abnormal (test code = 15362-7) [facility] VBG POC docked [id number] 11:16:15 Test Item Value Reference Range Interpretation Comments pH, Pankaj POC (test code 7.32 7.33-7.43 L = 22282748) pCO2,Pankaj POC (test code 31.0 See_Comment L [Au tomated = 33996452) message] The sy stem which generated this result transmitted reference range : 38 - 50 mmHg. The reference range was not used to interpret this result as normal/abnormal . PO2, Venous POC (BKR) 44 See_Comment L [Auto mated (test code = 98342536) messa ge] The system which generated this result transmitted reference range : 50 - 75 mm Hg. The reference range was not used to interpret this result as normal/abnormal . Ionized Calcium POC 1.24 mmol/L 1.15-1.29 (test code = 33993630) HCO3, Pankaj POC (test 16 mmol/L 22-26 L code = 14267698) TCO2 POC (test code = 17 mmol/L 21-32 L 35292445) Base Deficit, Pankaj POC -9 (test code = 05539520) Sample Type (test code STEPAN valencia Notified = 88236506) % Sat, Pankaj POC (test 77 % code = 09438642) Lab Interpretation Abnormal (test code = 29697-8) [facility] VBG POC docked [id number] 11:16:15 Test Item Value Reference Range Interpretation Comments pH, Pankaj POC (test code 7.32 7.33-7.43 L = 89735780) pCO2,Pankaj POC (test code 31.0 See_Comment L [Au tomated = 19316358) message] The sy stem which generated this result transmitted reference range : 38 - 50 mmHg. The reference range was not used to interpret this result as normal/abnormal . PO2, Venous POC (BKR) 44 See_Comment L [Auto mated (test code = 65904961) messa ge] The system which generated this result transmitted reference range : 50 - 75 mm Hg. The reference range was not used to interpret this result as normal/abnormal . Ionized Calcium POC 1.24 mmol/L 1.15-1.29 (test code = 93016029) HCO3, Pankaj POC (test 16 mmol/L 22-26 L code = 02801674) TCO2 POC (test code = 17 mmol/L 21-32 L 29149944) Base Deficit, Pankaj POC -9 (test code = 48356126) Sample Type (test code STEPAN valencia Notified = 60056415) % Sat, Pankaj POC (test 77 % code = 34422569) Lab Interpretation Abnormal (test code = 11807-8) [facility] VBG POC docked [id number] 11:16:15 Test Item Value Reference Range Interpretation Comments pH, Pankaj POC (test code 7.32 7.33-7.43 L = 73399212) pCO2,Pankaj POC (test code 31.0 See_Comment L [Au tomated = 08770790) message] The sy stem which generated this result transmitted reference range : 38 - 50 mmHg. The reference range was not used to interpret this result as normal/abnormal . PO2, Venous POC (BKR) 44 See_Comment L [Auto mated (test code = 83915738) messa ge] The system which generated this result transmitted reference range : 50 - 75 mm Hg. The reference range was not used to interpret this result as normal/abnormal . Ionized Calcium POC 1.24 mmol/L 1.15-1.29 (test code = 71625885) HCO3, Pankaj POC (test 16 mmol/L 22-26 L code = 70629491) TCO2 POC (test code = 17 mmol/L 21-32 L 60888339) Base Deficit, Pankaj POC -9 (test code = 68652152) Sample Type (test code IVFLORENCE Physi erik Notified = 62742415) % Sat, Pankaj POC (test 77 % code = 56952448) Lab Interpretation Abnormal (test code = 74498-0) [facility] VBG POC docked [id number] 11:16:15 Test Item Value Reference Range Interpretation Comments pH, Pankaj POC (test code 7.32 7.33-7.43 L = 50131117) pCO2,Pankaj POC (test code 31.0 See_Comment L [Au tomated = 37096392) message] The sy stem which generated this result transmitted reference range : 38 - 50 mmHg. The reference range was not used to interpret this result as normal/abnormal . PO2, Venous POC (BKR) 44 See_Comment L [Auto mated (test code = 19596629) [employer] ge] The system which generated this result transmitted reference range : 50 - 75 mm Hg. The reference range was not used to interpret this result as normal/abnormal . Ionized Calcium POC 1.24 mmol/L 1.15-1.29 (test code = 99976574) HCO3, Pankaj POC (test 16 mmol/L 22-26 L code = 53371601) TCO2 POC (test code = 17 mmol/L 21-32 L 67887459) Base Deficit, Pankaj POC -9 (test code = 41319586) Sample Type (test code IVFLORENCE Physi erik Notified = 12526096) % Sat, Pankaj POC (test 77 % code = 01309374) Lab Interpretation Abnormal (test code = 82952-5) [facility] VBG POC docked [id number] 11:16:15 Test Item Value Reference Range Interpretation Comments pH, Pankaj POC (test code 7.32 7.33-7.43 L = 61010440) pCO2,Pankaj POC (test code 31.0 See_Comment L [Au tomated = 37294904) message] The sy stem which generated this result transmitted reference range : 38 - 50 mmHg. The reference range was not used to interpret this result as normal/abnormal . PO2, Venous POC (BKR) 44 See_Comment L [Auto mated (test code = 24834602) messa ge] The system which generated this result transmitted reference range : 50 - 75 mm Hg. The reference range was not used to interpret this result as normal/abnormal . Ionized Calcium POC 1.24 mmol/L 1.15-1.29 (test code = 31143807) HCO3, Pankaj POC (test 16 mmol/L 22-26 L code = 86274063) TCO2 POC (test code = 17 mmol/L 21-32 L 57877352) Base Deficit, Pankaj POC -9 (test code = 84035183) Sample Type (test code IVEN Physi erik Notified = 38169303) % Sat, Pankaj POC (test 77 % code = 04955337) Lab Interpretation Abnormal (test code = 53461-0) [facility] POC docked [id number] 11:16:15 Test Item Value Reference Range Interpretation Comments pH, Pankaj POC (test code 7.32 7.33-7.43 L = 98108876) pCO2,Pankaj POC (test code 31.0 See_Comment L [Au tomated = 83172288) message] The sy stem which generated this result transmitted reference range : 38 - 50 mmHg. The reference range was not used to interpret this result as normal/abnormal . PO2, Venous POC (BKR) 44 See_Comment L [Auto mated (test code = 97038132) [employer] ge] The system which generated this result transmitted reference range : 50 - 75 mm Hg. The reference range was not used to interpret this result as normal/abnormal . Ionized Calcium POC 1.24 mmol/L 1.15-1.29 (test code = 08134596) HCO3, Pankaj POC (test 16 mmol/L 22-26 L code = 50311080) TCO2 POC (test code = 17 mmol/L 21-32 L 98424398) Base Deficit, Pankaj POC -9 (test code = 33340463) Sample Type (test code IVEN Physi erik Notified = 93728739) % Sat, Pankaj POC (test 77 % code = 05567679) Lab Interpretation Abnormal (test code = 78142-2) [facility] VBG POC docked [id number] 11:16:15 Test Item Value Reference Range Interpretation Comments pH, Pankaj POC (test code 7.32 7.33-7.43 L = 43046592) pCO2,Pankaj POC (test code 31.0 See_Comment L [Au tomated = 09299861) message] The sy stem which generated this result transmitted reference range : 38 - 50 mmHg. The reference range was not used to interpret this result as normal/abnormal . PO2, Venous POC (BKR) 44 See_Comment L [Auto mated (test code = 91235741) messa ge] The system which generated this result transmitted reference range : 50 - 75 mm Hg. The reference range was not used to interpret this result as normal/abnormal . Ionized Calcium POC 1.24 mmol/L 1.15-1.29 (test code = 08170800) HCO3, Pankaj POC (test 16 mmol/L 22-26 L code = 17692553) TCO2 POC (test code = 17 mmol/L 21-32 L 81576077) Base Deficit, Pankaj POC -9 (test code = 08156243) Sample Type (test code IVFLORENCE Physi erik Notified = 37598774) % Sat, Pankaj POC (test 77 % code = 64105860) Lab Interpretation Abnormal (test code = 48775-0) [place] [address] LEAD [id number] 20:59:[address] [facility] Test Date: 6375-20-54Pvi Name: DORA JOSEPH Department: 5520Patient ID: [id number] Room: Gender: M Assessment Analyst: [id number]: 1970 Requested By: TANJA Garza Number: [id number] Reading MD: Chiara Calles MeasurementsIntervals [place] Rate: 75 P: 84PR: 153 QRS: 67QRSD: 104 T: 77QT: 344 QTc: 373 Interpretive StatementsSINUS RHYTHMPOSSIBLE RIGHT VENTRICULAR CONDUCTION DELAY [RSR (QR) IN V1/V2]Electronically Signed On 01-09-2022 8:27:19 CDT by [place] [address] LEAD [id number] 20:59:[address] [facility] Test Date: 8563-53-46Cyd Name: DORA PAEZRY Department: 5520Patient ID: [id number] Room: Gender: M Assessment Analyst: [id number]: 1970 Requested By: TANJA Garza Number: [id number] Reading MD: Chiara Calles MeasurementsIntervals [place] Rate: 75 P: 84PR: 153 QRS: 67QRSD: 104 T: 77QT: 344 QTc: 373 Interpretive StatementsSINUS RHYTHMPOSSIBLE RIGHT VENT RICULAR CONDUCTION DELAY [RSR (QR) IN V1/V2]Electronically Signed On 01-09-2022 8:27:19 CDT by Ingeny12 LEAD [id number] 20:59:[address] [facility] Test Date: 7090-53-48Faz Name: DORA [place] Department: 5520Patient ID: [id number] Room: Gender: M Assessment Analyst: [id number]: 1970 Requested By: TANJA Garza Number: [id number] Reading MD: Chiara Calles MeasurementsIntervals [place] Rate: 75 P: 84PR: 153 QRS: 67QRSD: 104 T: 77QT: 344 QTc: 373 Interpretive StatementsSINUS RHYTHMPOSSIBLE RIGHT VENTRICULAR CONDUCTION DELAY [RSR (QR) IN V1/V2]Electronically Signed On 01-09-2022 8:27:19 CDT by Ingeny12 LEAD [id number] 20:59:[address] [facility] Test Date: 2434-32-55Yoy Name: DORA [place] Department: 5520Patient ID: [id number] Room: Gender: M Assessment Analyst: [id number]: 1970 Requested By: TANJA Garza Number: [id number] Reading MD: Chiara Calles MeasurementsIntervals [place] Rate: 75 P: 84 OR: 153 QRS: 67QRSD: 104 T: 77QT: 344 QTc: 373 Interpretive StatementsSINUS RHYTHMPOSSIBLE RIGHT VENTRICULAR CONDUCTION DELAY [RSR (QR) IN V1/V2]Electronically Signed On 01-09-2022 8:27:19 CDT by [facility] TRAILBLAZE FITNESS CONSULTINGCarroll Regional Medical CenterJustShareIt [place] [address] LEAD [id number] 20:59:[address] [facility] Test Date: 6856-51-51Xiz Name: DORA JOSEPH Department: 5520Patient ID: [id number] Room: Gender: M Assessment Analyst: [id number]: 1970 Requested By: TANJA Garza Number: [id number] Reading MD: Chiara Calles MeasurementsIntervals [place] Rate: 75 P: 84PR: 153 QRS: 67QRSD: 104 T: 77QT: 344 QTc: 373 Interpretive StatementsSINUS RHYTHMPOSSIBLE RIGHT VENTRICULAR CONDUCTION DELAY [RSR (QR) IN V1/V2]Electronically Signed On 01-09-2022 8:27:19 CDT by [facility] BremertonApplication [employer]12 LEAD [id number] 20:59:[address] [facility] Test Date: 5139-06-97Xte Name: DORA JOSEPH Department: 5520Patient ID: [id number] Room: Gender: M Assessment Analyst: [id number]: 1970 Requested By: TANJA Garza Number: [id number] Reading MD: Chiara Calles MeasurementsIntervals [place] Rate: 75 P: 84PR: 153 QRS: 67QRSD: 104 T: 77QT: 344 QTc: 373 Interpretive StatementsSINUS RHYTHMPOSSIBLE RIGHT VENTR ICULAR CONDUCTION DELAY [RSR (QR) IN V1/V2]Electronically Signed On 01-09-2022 8:27:19 CDT by [facility] TRAILBLAZE FITNESS CONSULTINGCarroll Regional Medical CenterJustShareIt [place] [address] LEAD [id number] 20:59:[address] [facility] Test Date: 6656-26-30Lel Name: DORA PAEZRY Department: 5520Patient ID: [id number] Room: Gender: M Assessment Analyst: [id number]: 1970 Requested By: TANJA Garza Number: [id number] Reading MD: Chiara Calles MeasurementsIntervals [place] Rate: 75 P: 84PR: 153 QRS: 67QRSD: 104 T: 77QT: 344 QTc: 373 Interpretive StatementsSINUS RHYTHMPOSSIBLE RIGHT VENTRICULAR CONDUCTION DELAY [RSR (QR) IN V1/V2]Electronically Signed On 01-09-2022 8:27:19 CDT by [employer] LEAD [id number] 20:59:[address] [facility] Test Date: 4638-96-77Pnr Name: DORA PAEZRY Department: 5520Patient ID: [id number] Room: Gender: M Assessment Analyst: [id number]: 1970 Requested By: TANJA Garza Number: [id number] Reading MD: Chiara Calles MeasurementsIntervals [place] Rate: 75 P: 84P R: 153 QRS: 67QRSD: 104 T: 77QT: 344 QTc: 373 Interpretive StatementsSINUS RHYTHMPOSSIBLE RIGHT VENTRICULAR CONDUCTION DELAY [RSR (QR) IN V1/V2]Electronically Signed On 01-09-2022 8:27:19 CDT by [employer].Car[facility] Medical CenterNineSigma12 LEAD [id number] 20:59:[address] [facility] Test Date: 9126-49-39Qsd Name: DORA PAEZRY Department: 5520Patient ID: [id number] Room: Gender: M Assessment Analyst: [id number]: 1970 Requested By: TANJA Garza Number: [id number] Reading MD: Chiara Calles MeasurementsIntervals [place] Rate: 75 P: 84PR: 153 QRS: 67QRSD: 104 T: 77QT: 344 QTc: 373 Interpretive StatementsSINUS RHYTHMPOSSIBLE RIGHT VENTRICULAR CONDUCTION DELAY [RSR (QR) IN V1/V2]Electronically Signed On 01-09-2022 8:27:19 CDT by [employer] LEAD [id number] 20:59:[address] [facility] Test Date: 6771-28-16Fyj Name: DORA PAEZRY Department: 5520Patient ID: [id number] Room: Gender: M Assessment Analyst: [id number]: 1970 Requested By: TANJA Garza Number: [id number] Reading MD: Chiara Calles MeasurementsIntervals [place] Rate: 75 P: 84PR: 153 QRS: 67QRSD: 104 T: 77QT: 344 QTc: 373 Interpretive StatementsSINUS RHYTHMPOSSIBLE RIGHT VENTR ICULAR CONDUCTION DELAY [RSR (QR) IN V1/V2]Electronically Signed On 01-09-2022 8:27:19 CDT by Chiara [place] [address] LEAD [id number] 20:59:[address] [facility] Test Date: 6870-52-66Fuy Name: DORA JOSEPH Department: 5520Patient ID: [id number] Room: Gender: Assessment Analyst: [id number]: 1970 Requested By: TANJA Garza Number: [id number] Reading MD: Chiara Calles MeasurementsIntervals [place] Rate: 75 P: 84PR: 153 QRS: 67QRSD: 104 T: 77QT: 344 QTc: 373 Interpretive StatementsSINUS RHYTHMPOSSIBLE RIGHT VENTRICULAR CONDUCTION DELAY [RSR (QR) IN V1/V2]Electronically Signed On 01-09-2022 8:27:19 CDT by [facility]remertonrobert DavisScripps Memorial HospitalCompaSwedish Medical Center [facility] W/AUTO [id number] 23:52:00 Test Item Value Reference Range Interpretation [...] = MX#) 0.8 k/mm3 0.1-0.8 N LIVER [id number] 20:04:00 Test Item Value Reference Range Interpretation [...] 67 UNITS/L 25-125 N LYNDSEY) BASIC METABOLIC [id number] 19:54:00 Test Item Value Reference Range Interpretation [...] POCGLU) 81 MG/DL - CT ABD PELVIS W/[id number] 00:00:00 [facility] SHANA LAKEName: MARIA ISABEL JOSEPH : 1970 Sex: M Name: MARIA ISABEL JOSEPH FSED : 1970 Age/S: 51 / M [address] [facility] Unit #: [id number] Loc: [place] [address] Phys: Raffaele Levi MD Acct: [id number] Dis Date: Status: PRE ER PHONE #: Exam Date: 09/23/20211999 FAX #: Reason: RUQ PAIN, VOMITING EXAMS: CPT CODE: [id number] CT ABD PELVIS W/CONT [id number] INFORMATION: Exam: CT Abdomen And Pelvis With [...] : 1970 Age/S: 51 / M [address] [facility] Unit #: [id number] Loc: [place] [address] Phys: Raffaele Levi MD Acct: [id number] Dis Date: Status: PRE ER PHONE #: Exam Date: 09/23/20211999 FAX #: Reason: RUQ PAIN, VOMITING EXAMS: CPT CODE: [id number] CT ABD PELVIS W/CONT 70465 <Continued> abdominal small bowel loops may relate to in complete luminal distention or enteritis. 2. 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 No obstruction. at 2048 Reported and signed by: Juan Juarez M.D.CC: Raffaele Levi MD Technologist:Stephanie Albrecht, RT(R)(CT) CTDI: DLP: Trnscb Date/Time: 09/23/2021 (2048) [email or web address] Orig Print D/T: S: 09/23/2021 (2049) PAGE 2 Signed Report COMPREHENSIVE METABOLIC [id number] 11:51:00 Test Item Value Reference Range Interpretation [...] Units/L 50.0-136.0 N code = ALKP) PROTHROMBIN [id number] 11:41:00 Test Item Value Reference Range Interpretation Comments PROTHROMBIN TIME 10.9 SECONDS 9.9-12.8 N PATIENT (test code = PTP) INTERNATIONAL NORMAL 0.9 0.89-1.14 N THE INR IS TO BE USED RATIO (test code = ONLY FOR MONITORING INR) ORAL ANTICOAGULANTTH ERAPY. THE FOLLOWING A RE SUGGESTED RANGE S FROM [facility] LEGE OF CHEST PHYSICIANS:LOLITA CATION INR VALUEPROPHY [...] D ANTIBODIES 2.5 - 3.5 CBC W/AUTO [id number] 11:36:00 Test Item Value Reference Range Interpretation [...] X10 3uL 0.00-0.01 N NRBC#) CBC W/AUTO [id number] 09:48:00 Test Item Value Reference Range Interpretation [...] = MX#) 0.8 k/mm3 0.1-0.8 N GLUCOSE [id number] 06:12:00 Test Item Value Reference Range Interpretation Comments GLUCOSE BEDSIDE (test 129 MG/DL 70-110 H [facility] med by certified code = GLUBED) 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 [facility] BASIC METABOLIC [id number] 05:21:00 Test Item Value Reference Range Interpretation [...] (test code = POCGLU) 92 MG/DL GLUCOSE [id number] 05:19:00 Test Item Value Reference Range Interpretation Comments GLUCOSE BEDSIDE (test 51 MG/DL 70-110 L [facility] med by certified code = GLUBED) 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 [facility] CBC W/AUTO [id number] 14:00:00 Test Item Value Reference Range Interpretation [...] MX#) 0.2 k/mm3 0.1-0.8 N CBC W/AUTO [id number] 00:07:00 Test Item Value Reference Range Interpretation [...] = LY#) 2.4 K/uL 1.0-3.8 N LIVER [id number] 16:14:00 Test Item Value Reference Range Interpretation Comments TOTAL PROTEIN (test code 7.5 GM/DL 5.0-8.0 N Per formed by = PROT) 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 [facility] ALBUMIN (test code = [...] 65 UNITS/L 25-125 N LYNDSEY) BASIC METABOLIC [id number] 16:07:00 Test Item Value Reference Range Interpretation [...] POCGLU) 96 MG/DL - XR CHEST 1 [id number] 00:00:00 [facility] : 1970 Sex: MFAX: Steve Urias MD [phone] [place]: [place] St: PRE Name: DORA JOSEPH FSED : 1970 Age/S: 51/M [address] [facility] Unit #: [id number] Loc: [place] [address] Phys: Steve Urias MD Acct: [id number] Dis Date: Status: PRE ER PHONE #: Exam Date: 06/27/2021 1547 FAX #: Reason: Abdominal Pain EXAMS: CPT CODE: [id number] XR CHEST 1 V 47548 PROCEDURE INFORMATION: Exam: XR Chest Exam date [...] PAGE 1 Signed Report- CT ABD PELVIS W/[id number] 00:00:00 [facility] : 1970 Sex: MName: DORA JOSEPH FSED : 1970 Age/S: 51 / M [address] [facility] Unit #: [id number] Loc: [place] [address] Phys: Steve Urias MD Acct: [id number] Dis Date: Status: REG ER PHONE #: Exam Date: 06/27/2021 162 FAX #: Reason: pain in region of colostomy EXAMS: CPT CODE: [id number] CT ABD PELVIS W/CONT 95382 PROCEDURE INFORMATION: Exam: CT Abdomen And Pelvis [...] : 1970 Age/S: 51 / M [address] [facility] Unit #: [id number] Loc: [place] [address] Phys: Steve Urias MD Acct: [id number] Dis Date: Status: REG ER PHONE #: Exam Date: 06/27/2021 1625 FAX #: Reason: pain in region of colostomy EXAMS: CPT CODE: [id number] CT ABD PELVIS W/CONT 18874 <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 There is no evidence of associated intestinal obstruction. 2. No additional acute CT abnormalities of the abdomen or pelvis are identified. SL:131 at 1650 Reported and signed by: Marco Raman M.D. CC: Steve Urias MD Technologist:RT Alanna(R)(CT) CTDI: DLP: Trnscb Date/Time: 06/27/2021 (1649) [place] Orig Print D/T: S: 06/27/2021 (1649) PAGE 2 Signed ReportCBC W/AUTO [id number] 09:20:00 Test Item Value Reference Range Interpretation [...] (test code NO = MDIFF) CBC W/AUTO [id number] 08:59:00 Test Item Value Reference Range Interpretation [...] REQUIRED (test code = MDIFF) BASIC METABOLIC [id number] 08:21:00 Test Item Value Reference Range Interpretation [...] 8.4 mg/dL 8.0-10.5 N CA) BASIC METABOLIC [id number] 08:34:00 Test Item Value Reference Range Interpretation [...] 8.4 mg/dL 8.0-10.5 N CA) CBC W/AUTO [id number] 07:41:00 Test Item Value Reference Range Interpretation [...] = MDIFF) UA RFLX MICR CULT IF [id number] 10:10:00 Test Item Value Reference Range Interpretation [...] Suprapubic Pain Temperature > 100.4 FSpecimen Description: [facility] STREAM[facility] METABOL[facility] [id number] 04:13:00 Test Item Value Reference Range Interpretation [...] mg/dL 8.0-10.5 N CA) Coronavirus 2019 nCoV [id number] 22:03:00 Test Item Value Reference Range Interpretation Comments Coronavirus 2019 Negative Negative Performed b y certified nCoV 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 Negative result s do not preclude IAKR-NmA-1opopn tion and should not be u sed as the sole basis forp atient management deci sions. Negative result s should beconsidered in the context of a patient's recent exposures,histo ry, presence of clinical sig ns and symptoms consis tentwith COVID-19. CBC W/AUTO [id number] 21:11:00 Test Item Value Reference Range Interpretation [...] MX#) 0.6 k/mm3 0.1-0.8 N BASIC METABOLIC [id number] 19:00:00 Test Item Value Reference Range Interpretation [...] POCGLU) 92 MG/DL - CT ABD PELVIS W/[id number] 00:00:00 [facility] 1970 Sex: MName: DORA JOSEPH FSED : 1970 Age/S: 51 / M [address] [facility] Unit #: [id number] Loc: [place] [address] Phys: Marcello Benoit MD Acct: [id number] Dis Date: Status: REG ERPHONE #: Exam Date: 04/28/20211913 FAX #: Reason: epigastric and LLQ pain, R-sided colostomy EXAMS: CPT CODE: [id number] CT ABD PELVIS W/CONT 54605 PROCEDURE INFORMATION: Exam: CT Abdomen And Pelvis [...] : 1970 Age/S: 51 / M [address] [facility] Unit #: [id number] Loc: [place] [address] Phys: Marcello Benoit MD Acct: [id number] Dis Date: Status: REG ER PHONE #: Exam Date: 04/28/2021 6416 FAX #: Reason: epigastric and LLQ pain, R-sided colostomy EXAMS: CPT CODE: [id number] CT ABD PELVIS W/CONT 50544 <Continued> Reproductive: Unremarkable as visualized. Bones/joints: Unremarkable. [...] PAGE 2 Signed Report- XR ABDOMEN 1 [id number] 12:53:00 Name: DORA JOSEPH [facility] : 1970 Age/S: 50 / M [address] [place] Unit #: [id number] Loc: [place] [address] 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 [employer] Acct: [id number] Dis Date: Status: ADM IN PHONE#: [phone] Exam Date: 02/25/2020 1036 FAX #: Reason: abdominal distention EXAMS: CPT: [id number] XR ABDOMEN 1 V 77040 Fluoro Time: DAP (Gy m2): Air Kerma [...] MD PAGE1 Signed Report Name: DORA JOSEPH [facility] : 1970 Age/S: 50 / M [address] Unit #: [id number] Loc: [place] [address] 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 Acct: [id number] Dis Date: Status: ADM IN PHONE #: [phone] Exam Date: 02/25/2020 1036 FAX #: Reason: abdominal distention EXAMS: CPT: [id number] XR ABDOMEN 1 V 55063 Fluoro Time: DAP (Gy m2): Air Kerma (mGy): <Continued> Technologist: Nichole Dill RT(R) Trnscb Date/Time: 02/25/2020 (6453) tDARWINR.EFM1 Orig Print D/T:S: 02/25/2020 (9641) PAGE 2 Signed Report COMPREHENSIVE METABOLIC [id number] 08:20:00 Test Item Value Reference Range Interpretation [...] 50-136 L TOTAL (test code = ALKP) [id number] 08:20:00 Test Item Value Reference Range Interpretation Comments MAGNESIUM (test code = MAG) 2.2 MG/DL 1.8-2.4 N THYROID STIMULATING [id number] 08:20:00 Test Item Value Reference Range Interpretation Comments THYROID STIMULATING HORMONE 5.430 mcIU/ML 0.340-4.820 H (test code = TSH) CBC W/AUTO [id number] 07:55:00 Test Item Value Reference Range Interpretation [...] N NRBC#) UA RFLX MICR CULT IF [id number] 12:29:00 Test Item Value Reference Range Interpretation [...] culture: Suprapubic PainUA RFLX MICR CULT IF [id number] 12:29:00 Test Item Value Reference Range Interpretation [...] for culture: Suprapubic PainCOVID 19 Asymptomatic IH [id number] 22:09:00 Test Item Value Reference Range Interpretation [...] tent with COVID-19. - CT ABD PELVIS W/[id number] 21:10:00 Name: DORA JOSEPH [facility] : 1970 Age/S: 50 / M [address] [place] Unit #: [id number] Loc: [place] [address] Phys: Evin Castellanos MD Acct: [id number] Dis Date: Status: REG ER PHONE #: [phone] Exam Date: 02/23/20202047 FAX #: Reason: diffuse abdomen pain and distention EXAMS: CPT: [id number] CT ABD PELVIS W/CONT 24440 EXAM: - CT ABD PELVIS W/CONT LOCATION: [...] No lymphadenopathy. PERITONEUM / RETROPERITONEUM: No free airor fluid. GI TRACT: No findings to suggest [...] Report (CONTINUED) Name: DORA JOSEPH [facility] : 1970 Age/S: 50 / M [address] [place] Unit #: [id number] Loc: [place] [address] Phys: Evin Castellanos MD Acct: [id number] Dis Date: Status: REG ER PHONE #: [phone] Exam Date: 02/23/20202047 FAX #: Reason: diffuse abdomen pain and distention EXAMS: CPT: [id number] CT ABD PELVIS W/CONT 48548 <Continued> CT. No bowel wall thickening or [...] by: Marybel José M.D. CC: Susana Meza ORE WASHER; Carl Luevano MD Technologist:Rudy Zuniga, RT(R)(CT)(MRI) CTDI: DLP: Trnscb Date/Time: 02/23/2020 (2109) t.SDR.GW25Bcvh Print D/T: S: 02/23/2020 (2112) PAGE 2 Signed Report- XR CHEST 1 [id number] 21:03:00 Name: DORA JOSEPH [facility] : 1970 Age/S: 50 / M [address] [place] Unit #: [id number] Loc: [place] [address] Phys: Evin Castellanos MD Acct: [id number] Dis Date: Status: REG ER PHONE #: [phone] Exam Date: 02/23/20202055 FAX #: Reason: Code Sepsis EXAMS: CPT: [id number] XR CHEST 1 V 55939 Fluoro Time: DAP (Gy m2): Air Kerma [...] disease. 2. Chronic colonic air distention unchanged. [id number] Reported and signed by: Monica Quijano MD CC: Susana Meza ORE WASHER; Carl Luevano MD PA GE 1 Signed Report Name: DORA JOSEPH [facility] : 1970 Age/S: 50 / M [address] Unit #: [id number] Loc: [place] [address] Phys: Evin Castellanos MD Acct: [id number] Dis Date: Status: REG ER PHONE #: [phone] Exam Date: 02/23/20202055 FAX #: Reason: Code Sepsis EXAMS:CPT: [id number] XR CHEST 1 V 09160 Fluoro Time: DAP (Gy m2): Air Kerma (mGy): <Continued> Technologist: Rudy Zuniga RT(R)(CT)(MRI) Trnscb Date/Time: 02/23/2020 (2102) Alanis Orig Print D/T: S: 02/23/2020 (2106) PAGE 2 Signed ReportBASIC METABOLIC [id number] 20:02:00 Test Item Value Reference Range Interpretation [...] 8.5-10.1 N Completed by Nursing: NOHEPATIC FUNCTION [id number] 20:02:00 Test Item Value Reference Range Interpretation [...] N code = ALKP) Completed by Nursing: [id number] 20:02:00 Test Item Value Reference Range Interpretation Comments LIPASE (test code = LIP) 97 Unit/L 114-286 L Completed by Nursing: [id number] 20:02:00 Test Item Value Reference Range Interpretation [...] brittani yby method. Completed by Nursing: NOLACTIC [id number] 19:59:00 Test Item Value Reference Range Interpretation Comments LACTIC ACID (test code = LACT) 1.2 mmol/L 0.4-2.0 N CBC W/AUTO [id number] 19:46:00 Test Item Value Reference Range Interpretation [...] CRITERIA = MDIFF) - XR ABDOMEN 2 [id number] 06:22:00 Name: DORA JOSEPH [facility] : 1970 Age/S: 50 / M [address] [place] Unit #: [id number] Loc: [place] [address] Phys: León Robertson MD Acct: [id number] Dis Date: Status: ADM IN PHONE #: [phone] Exam Date: 02/19/2020 0440 FAX #: Reason: megacolon EXAMS: CPT: [id number] XR ABDOMEN 2 V 06826 Fluoro Time: DAP (Gy m2): Air Kerma [...] MD PAGE1 Signed Report Name: DORA JOSEPH [facility] : 1970 Age/S: 50 / M [address] [place] Unit #: [id number] Loc: [place] [address] Phys: León Robertson MD Acct: [id number] Dis Date: Status: ADM IN PHONE #: [phone] Exam Date: 02/19/2020 0440 FAX #: Reason: megacolon EXAMS: CPT:[id number] XR ABDOMEN 2 V 69809 Fluoro Time: DAP (Gy m2): Air Kerma (mGy): <Continued> Technologist: Carrie Barnett, RT(R)(CT) Trnscb Date/Time: 02/19/2020 (0622) GarettAL7 Orig Print D/T: S: (6892) PAGE 2 Signed ReportBASIC METABOLIC [id number] 05:52:00 Test Item Value Reference Range Interpretation [...] CA) 8.5 MG/DL 8.5-10.1 N CBC W/AUTO [id number] 05:40:00 Test Item Value Reference Range Interpretation [...] NO DIFF/SCN CRITERIA = MDIFF) BASIC METABOLIC [id number] 06:52:00 Test Item Value Reference Range Interpretation [...] CA) 8.3 MG/DL 8.5-10.1 L CBC W/AUTO [id number] 06:39:00 Test Item Value Reference Range Interpretation [...] DIFF/SCN CRITERIA = MDIFF) Coronavirus 2018 nCoV [id number] 05:35:00 Test Item Value Reference Range Interpretation [...] tent with COVID-19. - XR ABDOMEN 1 [id number] 07:32:00 Name: OPALDORA [facility] : 1970 Age/S: 49 / M [address] [address] [place] Unit #: [id number] Loc: [place] [address] Phys: Jay Mayo MD Acct: [id number] Dis Date: Status: ADMIN PHONE #: [phone] Exam Date: 01/10/2020 0658 FAX #: Reason: follow up colonic ileus EXAMS: CPT: [id number] XR ABDOMEN 1 V 22349 Fluoro Time: DAP (Gy m2): Air Kerma [...] Perea MD PAGE 1 Signed Report Name: JOSEPHDORA ONEILL [facility] : 1970 Age/S: 49 / M [address] [place] Unit #: [id number] Loc: [place] [address] Phys: Jay Mayo Acct: [id number] Dis Date: Status: ADM IN PHONE #: [phone] Exam Date: 01/10/2020 0658 FAX#: Reason: follow up colonic ileus EXAMS: CPT: [id number] XR ABDOMEN 1 V 55048 Fluoro Time: DAP (Gy m2): Air Kerma (mGy): <Continued> Technologist: Alexander De Leon RT(R)(CT) Trnscb Date/Time: 01/10/2020 (0732) GarettCB5 Orig Print D/T: S: 01/10/2020 (0736) PAGE 2 Signed ReportCOMPREHENSIVE METABOLIC [id number] 05:56:00 Test Item Value Reference Range Interpretation [...] TOTAL (test code = ALKP) CBC W/AUTO [id number] 05:42:00 Test Item Value Reference Range Interpretation [...] = NO DIFF/SCN CRITERIA MDIFF) BASIC METABOLIC [id number] 06:59:00 Test Item Value Reference Range Interpretation [...] code = CA) 8.5 MG/DL 8.5-10.1 N [id number] 06:59:00 Test Item Value Reference Range Interpretation Comments MAGNESIUM (test code = MAG) 2.2 MG/DL 1.8-2.4 PROTHROMBIN [id number] 06:39:00 Test Item Value Reference Range Interpretation Comments PT PATIENT (test code = PTP) 13.1 SECONDS 9.3-12.9 H INTERNATIONAL NORMAL RATIO 1.16 INR Unit 0.8-1.2 N (test code = INR) CBC W/AUTO [id number] 06:22:00 Test Item Value Reference Range Interpretation [...] DIFF/SCN CRITERIA MDIFF) - XR ABDOMEN 1 [id number] 05:39:00 Name: DORA JOSEPH [facility] : 1970 Age/S: 49 / M [address] [facility] [place] Unit #: [id number] Loc: [place] [address] 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 [facility] Acct: [id number] Dis Date: Status: ADM IN PHONE#: [phone] Exam Date: 01/09/2020 0523 FAX #: Reason: colonic ileus/obstruction EXAMS: CPT: [id number] XR ABDOMEN 1 V 78394 Fluoro Time: DAP (Gy m2): Air Kerma [...] Signed Report Name: DORA JOSEPH [facility] : 1970 Age/S: 49 / M [address] [address] [place] Unit #: [id number] Loc: [place] [address] 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 Acct: [id number] Dis Date: Status: ADM IN PHONE #: [phone] Exam Date: 01/09/2020522 FAX #: Reason: colonic ileus/obstruction EXAMS: CPT: [id number] XR ABDOMEN 1V 61811 Fluoro Time: DAP (Gy m2): Air Kerma (mGy): <Continued> Technologist: Carrie Barnett, RT(R)(CT) Trnscb Date/Time: 01/09/2020 (0539) tJUDSONFC Orig Print D/T: S: 01/09/2020 (0542) PAGE 2Signed ReportCoronavirus 2018 nCoV [id number] 22:38:00 Test Item Value Reference Range Interpretation Comments Coronavirus 2019 nCoV Bedside (test Negative Negative code = [id number]) Emergent procedure? YESCoronavirus 2018 nCoV Esigztg8705-08-00 22:38:00 Test Item Value Reference Range Interpretation Comments Coronavirus 2019 nCoV Bedside (test Negative Negative code = [id number]) Emergent procedure? YESBASIC METABOLIC [id number] 18:42:00 Test Item Value Reference Range Interpretation [...] CA) 8.5 MG/DL 8.5-10.1 N CBC W/AUTO [id number] 10:50:00 Test Item Value Reference Range Interpretation [...] = NO DIFF/SCN CRITERIA MDIFF) COMPREHENSIVE METABOLIC [id number] 10:46:00 Test Item Value Reference Range Interpretation [...] 50-136 N TOTAL (test code = ALKP) [id number] 10:46:00 Test Item Value Reference Range Interpretation Comments MAGNESIUM (test code = MAG) 2.6 MG/DL 1.8-2.4 H COMPREHENSIVE METABOLIC [id number] 10:34:00 Test Item Value Reference Range Interpretation [...] TOTAL (test Unit/L 50-136 code = ALKP) [id number] 10:34:00 Test Item Value Reference Range Interpretation Comments MAGNESIUM (test code = MAG) MG/DL 1.8-2.4 - XR ABDOMEN 1 [id number] 08:28:00 Name: DORA JOSEPH [facility] : 1970 Age/S: 49 / M [address] [address] [place] Unit #: [id number] Loc: [place] [address] Phys: Yas Edwards MD Acct: [id number] Dis Date: Status: ADM IN PHONE #: [phone] Exam Date: 01/08/2020 05 FAX #: Reason: ileus EXAMS: CPT: [id number] XR ABDOMEN 1 O20902 Fluoro Time: DAP (Gy m2): Air Kerma (mGy): KUB Location T 18 INDICATION: Ileus, bowel obstruction Comparison 01/07/2020 and 01/06/[address] Significant gaseous distention of the colon, may have increased slightly from the prior studies. Apparent minimal small bowel gas in themid abdomen. IMPRESSION: Generalized ileus versus distal obstruction. at 0828 Reported and signed by: Bernardo Ochoa M.D. CC: Mark Perea MD; Yas Edwards MD PAGE 1 Signed Report Name: DORA JOSEPH [facility] : 1970 Age/S: 49 / M [address] [address] [place] Unit #: [id number] Loc: [place] [address] Phys: Yas Edwards [facility] [id number] Dis Date: Status: ADM IN PHONE #: [phone] Exam Date: 01/08/2020 05 FAX #: Reason: ileus EXAMS: CPT: [id number] XR ABDOMEN 1 V 67904 Fluoro Time: DAP (Gy m2): Air Kerma (mGy): &l t;Continued> Technologist: Carrie Barnett, RT(R)(CT); ... Trnscb Date/Time: 01/08/2020 (827)t.FLEXR.JTM Orig Print D/T: S: 01/08/2020 (31) PAGE 2 Signed ReportCOMPREHENSIVE METABOLIC [id number] 07:08:00 Test Item Value Reference Range Interpretation [...] 50-136 L TOTAL (test code = ALKP) [id number] 07:08:00 Test Item Value Reference Range Interpretation Comments MAGNESIUM (test code = MAG) 1.3 MG/DL 1.8-2.4 L COMPREHENSIVE METABOLIC [id number] 05:16:00 Test Item Value Reference Range Interpretation [...] 50-136 L TOTAL (test code = ALKP) [id number] 05:16:00 Test Item Value Reference Range Interpretation Comments MAGNESIUM (test code = MAG) 1.3 MG/DL 1.8-2.4 L CBC W/AUTO [id number] 05:02:00 Test Item Value Reference Range Interpretation [...] (test code = NO DIFF/SCN CRITERIA MDIFF) [id number] 16:51:00 Test Item Value Reference Range Interpretation Comments MAGNESIUM (test code = MAG) 2.3 MG/DL 1.8-2.4 N FE W/TOTAL IRON BINDING CAP.2020-01-07 16:51:00 Test Item Value Reference Range Interpretation Comments SERUM IRON (test code = IRON) 38 mcG/DL 65-175 L TOTAL IRON BINDING CAPACITY (test 322 mcG/DL 250-450 N code = TIBC) IRON SATURATION (test code = 12 % calc 12-57 N FESAT) [id number] 16:51:00 Test Item Value Reference Range Interpretation Comments FERRITIN (test code = DAVID) 17.6 NG/ML 5.0-323.0 N CALCIUM [id number] 16:50:00 Test Item Value Reference Range Interpretation Comments CALCIUM IONIZED (test code = NAVEED) 1.12 mmol/L 1.12-1.32 N - XR ABDOMEN 1 [id number] 10:29:00 Name: DORA JOSEPH [facility] : 1970 Age/S: 49 / M [address] [address] [place] Unit #: [id number] Loc: [place] [address] Phys: Verona Frost PA-C Acct: [id number] Dis Date: Status: ADM IN ONE #: [phone] Exam Date: 01/07/2020 0712 FAX #: Reason: reassess SBO EXAMS: CPT: [id number] XRABDOMEN 1 V 42958 Fluoro Time: DAP (Gy m2): Air Kerma (mGy): CLINICAL INFORMATION: Bowel obstruction. Dictation location: J9 Comparison: 01/06/2020 reported distended colon Technique: Supine view. Find ings. Once again noted is diffuse air-filled distention [...] Signed Report Name: DORA JOSEPH [facility] : 1970 Age/S: 49 / M [address] [address] [place] Unit #: [id number] Loc: [place] [address] Phys: Verona Frost PA-C Acct: [id number] Dis Date: Status: ADM IN PHONE #: [phone] Exam Date: 01/07/2020 0712 FAX #: Reason: reassess SBO EXAMS: CPT: [id number] XR ABDOMEN 1 V 61913 Fluoro Time: DAP (Gy m2): Air Kerma (mGy): <Continued> Technologist: Alexander De Leon, RT(R)(CT) Trnscb Date/Time: 01/07/2020 (1029) t.SDR.AGV Orig Print D/T: S: 01/07/2020 (9592) PAGE 2 Signed ReportBASIC METABOLIC [id number] 07:01:00 Test Item Value Reference Range Interpretation [...] CA) 5.4 MG/DL 8.5-10.1 LL CBC W/AUTO [id number] 06:49:00 Test Item Value Reference Range Interpretation [...] = NO DIFF/SCN CRITERIA MDIFF) COMPREHENSIVE METABOLIC [id number] 06:10:00 Test Item Value Reference Range Interpretation [...] TOTAL (test code = ALKP) CBC W/AUTO [id number] 05:52:00 Test Item Value Reference Range Interpretation [...] DIFF/SCN CRITERIA MDIFF) - XR ABDOMEN 1 [id number] 01:30:00 Name: DORA JOSEPH [facility] : 1970 Age/S: 49 / M [address] [address] [place] Unit #: [id number] Loc: [place] [address] Phys: Ted Coleman ORE WASHER Acct: [id number] Dis Date: Status: ADM IN PHONE #: [phone] Exam Date: 01/06/2020 0100 FAX #: Reason: NG Tube Placement Verification EXAMS: CPT: [id number] XR ABDOMEN 1 V 68707 Fluoro Time: DAP (Gy m2): Air Kerma [...] M.D. CC: Mark Perea MD; Rafael Coleman ORE WASHER PAGE 1 Signed Report Name: DORA JOSEPH [facility] : 1970 Age/S: 49 / M [address] [address] [place] Unit #: [id number] Loc: [place] [address] Phys: Ted Coleman NP Acct: [id number] Dis Date: Status: ADM IN PHONE #: [phone] Exam Date: 01/06/2020 010 FAX #: Reason: NG Tube Placement Verification EXAMS: CPT: [id number] XR ABDOMEN 1 V 22474 Fluoro Time: DAP (Gy m2): Air Kerma (mGy): <Continued> Technologist: RT Tatum(R) [facility] Date/Time: 01/06/2020 (129) Herrera Orig Print D/T: S: 01/06/2020 (132) PAGE 2 Signed Report- CT ABD PELVIS W/O [id number] 19:42:00 [place]: St: REG -- Name: DORA JOSEPH [facility] [place] : 1970 Age/S: 49/M [address] [facility] Unit:[id number] Loc: [place]: [place] [address] Acct: [id number] Dis Date: Status: REG ER PHONE #: [phone] Exam Date: 12/13/20191924 FAX #: [phone] Reason: pain EXAMS: CPT CODE: [id number] CT ABD PELVIS W/O CONT 31273 Examination: CT scan abdomen and pelvis without [...] identified. Images through the lung bases are unremarkable.IMPRESSION: 1. Marked distention of the transverse colon essentially unchanged in appearance when compared to the prior study dated 02/28/2013. No definite obstructive lesion is identified given the stability of this finding is likely as a chronic finding. 2. Otherwise unremarkable unenhanced CT scan ofabdomen and pelvis. at 1942 Reported and signed by: SHANEL EDWARDS CC: Technologist: SUJATA ALMANZAR Trnscrd Dt/Tm: 12/13/2019 (1941) tDARWINR.VR5 Orig Parvin nt D/T: S: 12/13/2019 (5 PAGE 1 Signed ReportBASIC METABOLIC [id number] 18:49:00 Test Item Value Reference Range Interpretation [...] code = CA) 8.6 mg/dl 8.0-10.5 N [id number] 18:49:00 Test Item Value Reference Range Interpretation Comments LIPASE (test code = LIP) 97 Units/L 65.0-230.0 N CBC W/AUTO [id number] 18:38:00 Test Item Value Reference Range Interpretation [...] K/mm3 0.0-0.2 N - XR CHEST 1 [id number] 18:36:00 [place]: St: PRE -- Name: DORA JOSEPH [facility] [place] : 1970 Age/S: 49/M [address] [facility] Unit #: [id number] Loc: [place]: [place] [address] Acct: [id number] Dis Date:Status: PRE ER PHONE #: [phone] Exam Date: 12/13/2019 1822 FAX #: [phone] Reason: SOB EXAMS: CPT CODE: [id number] XR CHEST 1 V 67477 Examination: One view chest x-ray Location code: [...] : By: GarettVR5 PAGE 1 Signed Report [place]: St: PRE ----- Name: DORA JOSEPH [facility] [place] : 1970 Age/S: 49/M [address] [facility] Unit #: [id number] Loc: [place], [place]: [place] [address] Acct: [id number] Dis Date: Status: PRE ER PHONE #: [phone] Exam Date: 12/13/2019 182 FAX #: [phone] Reason: SOB EXAMS: CPT CODE: [id number] XR CHEST 1 V 51199 (Continued) Orig Print D/T: S: 12/13/2019 (183) PAGE 2 Signed ReportCB W/PLT COUNT & AUTO [id number] 08:02:00 Test Item Value Reference Range Interpretation [...] Received comment: User comments: Slide comments:BASIC METABOLIC [id number] 07:34:00 Test Item Value Reference Range Interpretation [...] S NOT APPLICABLE FOR DIALYSIS PATIEN TS. [id number] 07:26:00 Test Item Value Reference Range Interpretation Comments PHOSPHORUS (BEAKER) (test code = 3.1 mg/dL 2.3-4.7 604) [id number] 07:26:00 Test Item Value Reference Range Interpretation Comments MAGNESIUM (BEAKER) (test code = 1.6 mg/dL 1.6-2.6 627) RAD, ABDOMEN/KUB, 1 VIEW [id number] 07:04:00Reason for exam:->ileusFINAL REPORT Abdomen , one [...] MDReport Verified Date/Time: 04/03/2019 07:04:46 Reading Location: [address] Consult Reading Room BASIC METABOLIC [id number] 06:47:00 Test Item Value Reference Range Interpretation [...] code = 413) URINALYSIS WITH MICROSCOPIC IF [id number] 22:01:00 Test Item Value Reference Range Interpretation [...] 463) SOURCE(BEAKER) (test code = 2795) URINALYSIS [id number] 22:01:00 Test Item Value Reference Range Interpretation Comments RBC UA (BEAKER) (test code = 519) 18 /HPF WBC UA (BEAKER) (test code = 520) 1 /HPF CALCIUM OXALATE CRYSTALS (BEAKER) Occasional (test code = 518) [id number] 05:49:00 Test Item Value Reference Range Interpretation Comments PHOSPHORUS (BEAKER) (test code = 2.5 mg/dL 2.3-4.7 604) [id number] 05:49:00 Test Item Value Reference Range Interpretation Comments MAGNESIUM (BEAKER) (test code = 1.7 mg/dL 1.6-2.6 627) BASIC METABOLIC [id number] 05:49:00 Test Item Value Reference Range Interpretation [...] (BEAKER) (test code = 413) BASIC METABOLIC [id number] 06:19:00 Test Item Value Reference Range Interpretation [...] S NOT APPLICABLE FOR DIALYSIS PATIEN TS. [id number] 06:10:00 Test Item Value Reference Range Interpretation Comments MAGNESIUM (BEAKER) 1.8 mg/dL 1.6-2.6 Specimen slightly (test code = 627) hemolyzed [id number] 06:10:00 Test Item Value Reference Range Interpretation [...] (BEAKER) (test code = 413) BASIC METABOLIC [id number] 04:57:00 Test Item Value Reference Range Interpretation [...] S NOT APPLICABLE FOR DIALYSIS PATIEN TS. [id number] 04:55:00 Test Item Value Reference Range Interpretation Comments PHOSPHORUS (BEAKER) (test code = 2.6 mg/dL 2.3-4.7 604) [id number] 04:55:00 Test Item Value Reference Range Interpretation Comments MAGNESIUM (BEAKER) (test code = 1.8 mg/dL 1.6-2.6 627) CT, [id number] 14:16:00FINAL REPORT TECHNIQUE: CT of the abdomen [...] Kim MDReport Verified Date/Time: 03/29/2019 14:16:01Reading Location: [address] Body Reading Room , ABDOMEN/KUB, 1 VIEW [id number] 10:23:00Reason for exam:->evaluate ileusFINAL REPORT Technique: Supine [...] [place] Verified Date/Time: 03/29/2019 10:23:29 Reading Location: [facility] Reading Room CBC (HEMOGRAM ONLY)2019-03-29 08:10:00 [...] WBC 0-0 (BEAKER) (test code = 413) [id number] 06:20:00 Test Item Value Reference Range Interpretation Comments PHOSPHORUS (BEAKER) (test code = 2.6 mg/dL 2.3-4.7 604) [id number] 06:20:00 Test Item Value Reference Range Interpretation Comments MAGNESIUM (BEAKER) (test code = 2.0 mg/dL 1.6-2.6 627) BASIC METABOLIC [id number] 06:20:00 Test Item Value Reference Range Interpretation [...] TS. RAD, ABDOMEN SERIES W/ UPRIGHT PA [id number] 22:18:00Reason for exam:- >eval ileusFINAL REPORT CLINICAL [...] with CT abdomen pelvis. Signed: Mari Bethea [facility] Verified Date/Time: 03/28/2019 22:18:50 RAD, ABDOMEN/KUB, 1 VIEW [id number] 11:23:00Reason for exam:->abdominal distensionShould this be performed [...] MDReport Verified Date/Time: 03/28/2019 11:23:34 Reading Location: [facility] Radiology Reading Room TISSUE [id number] 09:00:00Surgical Pathology Report Case: [id number] Authorizing Provider: Graciela Garrison MD Collected: 03/25/2019 1133 Ordering Location: [facility] PERIOPER[facility]IVE Received: 03/25/2019 1527 SERVICES Pathologist: [...] FOR MALIGNANCY Signing Pathologist Direct Phone Line: [phone] signed by Jordan Celaya MD on 03/28/2019 at 9:00 [id number] and postop diagnosis: ileostomy statusA. End ileostomy; [...] nodes are not identified in the mesentery. Public Area Supervisor sections are submitted. Section code: A, workforce services representative section of each end of first mentioned segment of small bowel; A2, workforce services representative of first mentioned segment of small bowel mucosa; A3, area of hemorrhagic mesentery of second mentioned segment of mucosa; A4, workforce services representative of hemorrhagic mucosa at open end of second portion of small bowel; A5, workforce services representative of stapled margin from second [...] 0.2 cm. No gross lesions are identified. Public Area Supervisor sections are submitted. Section code: B1, proximal margin en face and tip; B2, workforce services representative cross section. CG/pl Performed.[id number] 06:23:00 Test Item Value Reference Range Interpretation Comments PHOSPHORUS (BEAKER) (test code = 2.7 mg/dL 2.3-4.7 604) [id number] 06:23:00 Test Item Value Reference Range Interpretation Comments MAGNESIUM (BEAKER) (test code = 1.9 mg/dL 1.6-2.6 627) BASIC METABOLIC [id number] 06:23:00 Test Item Value Reference Range Interpretation [...] S NOT APPLICABLE FOR DIALYSIS PATIEN TS. [id number] 08:20:00 Test Item Value Reference Range Interpretation Comments PHOSPHORUS (BEAKER) (test code = 2.6 mg/dL 2.3-4.7 604) [id number] 08:20:00 Test Item Value Reference Range Interpretation Comments MAGNESIUM (BEAKER) (test code = 1.8 mg/dL 1.6-2.6 627) BASIC METABOLIC [id number] 08:20:00 Test Item Value Reference Range Interpretation [...] S NOT APPLICABLE FOR DIALYSIS PATIEN TS. [id number] 06:06:00 Test Item Value Reference Range Interpretation Comments PHOSPHORUS (BEAKER) (test code = 4.1 mg/dL 2.3-4.7 604) [id number] 06:06:00 Test Item Value Reference Range Interpretation Comments MAGNESIUM (BEAKER) (test code = 1.8 mg/dL 1.6-2.6 627) BASIC METABOLIC [id number] 06:06:00 Test Item Value Reference Range Interpretation [...] S NOT APPLICABLE FOR DIALYSIS PATIEN TS. [id number] 06:03:00 Test Item Value Reference Range Interpretation Comments PHOSPHORUS (BEAKER) (test code = 4.2 mg/dL 2.3-4.7 604) [id number] 06:03:00 Test Item Value Reference Range Interpretation Comments MAGNESIUM (BEAKER) (test code = 2.0 mg/dL 1.6-2.6 627) BASIC METABOLIC [id number] 06:03:00 Test Item Value Reference Range Interpretation [...] WBC 0-0 (BEAKER) (test code = 413) [id number] 05:52:00 Test Item Value Reference Range Interpretation Comments PHOSPHORUS (BEAKER) (test code = 4.2 mg/dL 2.3-4.7 604) [id number] 05:52:00 Test Item Value Reference Range Interpretation Comments MAGNESIUM (BEAKER) (test code = 1.9 mg/dL 1.6-2.6 627) BASIC METABOLIC [id number] 05:52:00 Test Item Value Reference Range Interpretation [...] S NOT APPLICABLE FOR DIALYSIS PATIEN TS. [id number] 06:51:00 Test Item Value Reference Range Interpretation Comments PHOSPHORUS (BEAKER) (test code = 4.3 mg/dL 2.3-4.7 604) [id number] 06:51:00 Test Item Value Reference Range Interpretation Comments MAGNESIUM (BEAKER) (test code = 2.0 mg/dL 1.6-2.6 627) BASIC METABOLIC [id number] 06:51:00 Test Item Value Reference Range Interpretation [...] 0-0 (BEAKER) (test code = 413) TISSUE [id number] 11:50:00Surgical Pathology Report Case: [id number] Authorizing Provider: Mela Larson MD Collected: 03/18/2019 1827 Ordering Location: [facility] Received: 03/21/2019 0823 SERVICES Pathologist: Jordan Celaya MD Specimen: Small Bowel, NOS A. SMALL BOWEL, ILEOSTOMY PROLAPSE, TAKEDOWN: - ANASTOMOSIS SITE WITH ACTIVE CHRONIC INFLAMMATION AND FOCAL ISCHEMIC CHANGES - MUCOSAL RESECTIONMARGINS, NEGATIVE FOR MALIGNANCY - ONE BENIGN LYMPH NODE (0/1) - NEGATIVE FOR DYSPLASIA OR MALIGNANCY Signing Pathologist Direct Phone Line: [phone] signed by Jordan Celaya MD on 03/22/2019 at 11:50 [id number] of ileostomyReceived in a container labeled "small [...] 0.5 to 1.2 cm in greatest dimension. Public Area Supervisor sections are submitted as follows: A1-A2, mucosal resection margin, en face; A3-A6, workforce services representative sections of the possible ostomy stump; A7-A11, serial workforce services representative sections from mucosal resection margin to the possible ostomy stump; A12, two lymph nodes. TH/plPerformed.[id number] 06:58:00 Test Item Value Reference Range Interpretation Comments PHOSPHORUS (BEAKER) (test code = 3.8 mg/dL 2.3-4.7 604) [id number] 06:58:00 Test Item Value Reference Range Interpretation Comments MAGNESIUM (BEAKER) (test code = 2.0 mg/dL 1.6-2.6 627) BASIC METABOLIC [id number] 06:58:00 Test Item Value Reference Range Interpretation [...] PATIEN TS. CBC W/PLT COUNT & AUTO [id number] 05:42:00 Test Item Value Reference Range Interpretation [...] PERCENT (BEAKER) (test code = 2801) ALTHEA [id number] 17:42:00Reason for exam:->evaluate for colon stricture as [...] [place] Verified Date/Time: 03/21/2019 17:42:21 Reading Location: [address] Consult Reading Room [id number] 03:58:00 Test Item Value Reference Range Interpretation Comments PHOSPHORUS (BEAKER) (test code = 3.0 mg/dL 2.3-4.7 604) [id number] 03:58:00 Test Item Value Reference Range Interpretation Comments MAGNESIUM (BEAKER) (test code = 2.0 mg/dL 1.6-2.6 627) BASIC METABOLIC [id number] 03:58:00 Test Item Value Reference Range Interpretation [...] PATIEN TS. CBC W/PLT COUNT & AUTO [id number] 03:20:00 Test Item Value Reference Range Interpretation [...] (BEAKER) (test code = 2801) BASIC METABOLIC [id number] 06:26:00 Test Item Value Reference Range Interpretation [...] S NOT APPLICABLE FOR DIALYSIS PATIEN TS. [id number] 06:05:00 Test Item Value Reference Range Interpretation Comments PHOSPHORUS (BEAKER) (test code = 2.2 mg/dL 2.3-4.7 L 604) [id number] 06:05:00 Test Item Value Reference Range Interpretation Comments MAGNESIUM (BEAKER) (test code = 2.0 mg/dL 1.6-2.6 627) CBC W/PLT COUNT & AUTO [id number] 05:25:00 Test Item Value Reference Range Interpretation [...] 0-1 PERCENT (BEAKER) (test code = 2801) [id number] 04:31:00 Test Item Value Reference Range Interpretation Comments PHOSPHORUS (BEAKER) (test code = 3.7 mg/dL 2.3-4.7 604) [id number] 04:31:00 Test Item Value Reference Range Interpretation Comments MAGNESIUM (BEAKER) (test code = 1.9 mg/dL 1.6-2.6 627) BASIC METABOLIC [id number] 04:31:00 Test Item Value Reference Range Interpretation [...] PATIEN TS. CBC W/PLT COUNT & AUTO [id number] 04:15:00 Test Item Value Reference Range Interpretation [...] 0-1 PERCENT (BEAKER) (test code = 2801) [id number] 06:41:00 Test Item Value Reference Range Interpretation Comments PHOSPHORUS (BEAKER) (test code = 3.1 mg/dL 2.3-4.7 604) [id number] 06:41:00 Test Item Value Reference Range Interpretation Comments MAGNESIUM (BEAKER) (test code = 1.9 mg/dL 1.6-2.6 627) BASIC METABOLIC [id number] 06:41:00 Test Item Value Reference Range Interpretation [...] PATIEN TS. CBC W/PLT COUNT & AUTO [id number] 06:36:00 Test Item Value Reference Range Interpretation [...] PERCENT (BEAKER) (test code = 2801) CT, [id number] 17:04:00No PO contrastFINAL REPORT ABDOMINAL AND PELVIS [...] MDReport Verified Date/Time: 03/17/2019 17:04:19 Reading Location: [facility] B[facility] C013[facility] CT Body Reading Room XR ABDOMEN 2 [id number] 09:03:45XR ABDOMEN 2 VIEWSLOCATION: [id number]: Colstomy ProlapseCOMPARISON: Chest radiograph 04/15/2017, CT of [...] Nonspecific, nonobstructive bowel gas pattern.XR CHEST 1 [id number] 11:32:15EXAM: CHEST ONE VIEWINDICATION: Chest painCOMPARISON: None availableTECHNIQUE: AP view of the chest.FINDINGS: The cardiomediastinal silhouette is normal. The lungs are clearbilaterally. No pneumothoraxor pleural effusion is identified. Theosseous structures are unremarkable.IMPRESSION: No acute cardiopulmonary process.LOCATION: I82[place]if[place] Type and [id number] 21:21:00 Test Item Value Reference Range Interpretation Comments ABO type (test code = ABO) O Rh Type (test code = RH) Positive Comprehensive Metabolic [id number] 20:36:00 Test Item Value Reference Range Interpretation [...] validated by th e MDRD study and rashi westfall be interpretedwith caution.eGFR Re sult Interpretation: eGFR > or = 60 is in t he Normal RangeeGF R < 60 may mean kidney diseaseeGFR < 1 5 may mean kidney failureRange s recommended by the National Kidney Foundation,http ://nkd ep.nih.gov Alcohol/Ethanol, [id number] 20:36:00 Test Item Value Reference Range Interpretation Comments Alcohol, Ethyl <0.01 g/dL 0.00-0.01 N Intoxicated 0 .080 g/dL (test code = ETOH) or more Prothrombin [id number] 20:00:00 Test Item Value Reference Range Interpretation Comments PT (test code = PT) 10.10 seconds 9.78-13.35 N INR (test code = INR) 0.88 Ratio 0.6-1.2 N Partial Thromboplastin [id number] 20:00:00 Test Item Value Reference Range Interpretation Comments aPTT (test code = PTT) 31.50 seconds 24.39-37.25 N CBC with [id number] 19:50:00 Test Item Value Reference Range Interpretation [...] code = ALYMPH) 2.2 K/cumm 0.5-4.6 N [place] Abs (test code = AMONO) 0.4 K/cumm 0.0-1.2 N Eos Abs (test code = AEOS) 0.17 K/cumm 0.00-0.74 N Baso Abs (test code = ABASO) 0.0 K/cumm 0.00-0.21 N 34234& PELVIS W/O [id number] 17:36:28CT ABDOMEN AND PELVIS WITHOUT CONTRAST.CLINICAL HISTORY: [...]
--- NOTE | 2022-06-18 08:24 | ER ---
Nurse's Notes [facility] Name: Rico Mcneill Age: 52 yrs Sex: Male : 1970 Arrival Date: 06/18/2022 Time: 07:48 Bed 10 Private MD: Diagnosis: Colostomy complication, unspecified;Encounter for attention to colostomy Presentation: 06/18 08:02 Chief complaint: Patient states: "I need a colostomy bag." Reports the one from last jl7 night didn't stick. Reports he always gets his colostomy bag from this hospital. Coronavirus screen: Vaccine status: Patient reports receiving the 2nd dose of the covid vaccine. At this time, the client does not indicate any symptoms associated with coronavirus-19. Ebola Screen: No symptoms or risks identified at this time. Initial Sepsis Screen: Does the patient meet any 2 criteria? No. Patient's initial sepsis screen is negative. Does the patient have a suspected source of infection? No. Patient's initial sepsis screen is negative. Risk Assessment: Do you want to hurt yourself or someone else? Patient reports no desire to harm self or others. Onset of symptoms was June 18, 2022. 08:02 Method Of Arrival: Ambulatory jl7 08:02 Acuity: OCTAVIO 4 jl7 Triage Assessment: 08:04 General: Appears in no apparent distress. uncomfortable, Behavior is calm, cooperative, jl7 appropriate for age. Pain: Denies pain. Historical: - Allergies: 08:04 NKDA; jl7 - Home Meds: 08:04 None [Active]; jl7 - PMHx: 08:04 ileostomy; jl7 - PSHx: 08:04 Small bowel resection with ileostomy; jl7 - Immunization history:: Client reports receiving the 2nd dose of the Covid vaccine. - Social history:: Smoking status: Patient reports use of chewing tobacco. Screenin:11 Abuse screen: Denies threats or abuse. Denies injuries from another. Nutritional iw screening: No deficits noted. Tuberculosis screening: No symptoms or risk factors identified. Fall Risk None identified. Assessment: 09:11 General: Appears in no apparent distress. Behavior is calm, cooperative. Pain: Denies iw pain. Derm: Skin is intact. Vital Signs: 08:02 BP 102 / 76; Pulse 80; Resp 17; Temp 97.5; Pulse Ox 100% ; Weight 65.77 kg; Height 6 jl7 ft. 1 in. (185.42 cm); Pain 0/10; 08:02 Body Mass Index 19.13 (65.77 kg, 185.42 cm) jl7 ED Course: 07:48 Patient arrived in ED. mr 07:51 Saad Alberto DO is Attending Physician. ms3 08:04 Triage completed. jl7 08:04 Arm band placed on right wrist. jl7 08:05 Abril Noonan, RN is Primary Nurse. jl7 09:10 Primary Nurse role handed off by Abril Noonan, RN iw 09:10 Ashlie Goetz, RN is Primary Nurse. iw 09:11 No provider procedures requiring assistance completed. Patient did not have IV access iw during this emergency room visit. Administered Medications: No medications were administered Outcome: 08:24 Discharge ordered by MD. ms3 09:11 Discharged to home ambulatory. iw 09:11 Condition: good 09:11 Discharge instructions given to patient, Instructed on discharge instructions, follow up and referral plans. Demonstrated understanding of instructions, follow-up care. 09:11 Patient left the ED. iw Signatures: Saira Crowe mr Ashlie Goetz RN RN iw Abril Noonan RN RN jl Saad Alberto DO DO ms3
--- NOTE | 2022-06-18 08:24 | EDPHYS ---
Physician Documentation [facility] Name: Rico Mcneill Age: 52 yrs Sex: Male : 1970 Arrival Date: 06/18/2022 Time: 07:48 Bed 10 Private MD: ED Physician Saad Alberto HPI: 06/18 08:19 This 52 yrs old Male presents to ER via Ambulatory with complaints of Colostomy bag. ms3 08:21 52-year-old male with past medical history of bowel obstruction presents for missing ms3 colostomy bag. Patient states he was in the emergency department last night and the colostomy bag did not stick to his diet. Patient denies pain. Patient denies alleviating or inciting factors. Patient denies fevers, chills, nausea, vomiting. Onset: The symptoms/episode began/occurred last night. Severity of symptoms: At their worst the symptoms were very mild in the emergency department the symptoms are unchanged Pain is currently a 0 / 10. Historical: - Allergies: 08:04 NKDA; jl7 - Home Meds: 08:04 None [Active]; jl7 - PMHx: 08:04 ileostomy; jl7 - PSHx: 08:04 Small bowel resection with ileostomy; jl7 - Immunization history:: Client reports receiving the 2nd dose of the Covid vaccine. - Social history:: Smoking status: Patient reports use of chewing tobacco. ROS: 08:21 Constitutional: Negative for fever, and chills. Neck: Negative for injury, pain, and ms3 swelling, Cardiovascular: Negative for chest pain, and palpitations. Respiratory: Negative for shortness of breath, cough, wheezing, and pleuritic chest pain. 08:21 Abdomen/GI: Positive for Colostomy without bag in place. 08:21 All other systems are negative. Exam: 08:21 Constitutional: This is a well developed, well nourished patient who is awake, alert, ms3 and in no acute distress. Head/Face: Normocephalic, atraumatic. Neck: Trachea midline, no cervical lymphadenopathy. Supple, full range of motion without nuchal rigidity, or vertebral point tenderness. No Meningismus. Chest/axilla: Normal chest wall appearance and motion. Nontender with no deformity. Cardiovascular: Regular rate and rhythm with a normal S1 and S2. No gallops, murmurs, or rubs. Normal PMI, no JVD. No pulse deficits. Respiratory: Lungs have equal breath sounds bilaterally, clear to auscultation and percussion. No rales, rhonchi or wheezes noted. No increased work of breathing, no retractions or nasal flaring. 08:21 Skin: Warm, dry with normal turgor. Normal color with no rashes, no lesions, and no evidence of cellulitis. MS/ Extremity: Pulses equal, no cyanosis. Neurovascular intact. Full, normal range of motion. 08:21 Abdomen/GI: Inspection: Colostomy with pink stoma, no surrounding erythema, Bowel sounds: normal, Palpation: abdomen is soft and non-tender. Vital Signs: 08:02 BP 102 / 76; Pulse 80; Resp 17; Temp 97.5; Pulse Ox 100% ; Weight 65.77 kg; Height 6 jl7 ft. 1 in. (185.42 cm); Pain 0/10; 08:02 Body Mass Index 19.13 (65.77 kg, 185.42 cm) jl7 MDM: 08:17 Patient medically screened. ms3 08:21 Data reviewed: vital signs, nurses notes, and as a result, I will discharge patient. ms3 Counseling: I had a detailed discussion with the patient and/or guardian regarding: the historical points, exam findings, and any diagnostic results supporting the discharge/admit diagnosis, the need for outpatient follow up. 06/18 08:18 Order name: [facility]. Order: Colostomy bag; Complete Time: 09:08 ms3 Administered Medications: No medications were administered Disposition Summary: 06/18/22 08:24 Discharge Ordered Location: Home ms3 Condition: Stable ms3 Diagnosis - Colostomy complication, unspecified ms3 - Encounter for attention to colostomy ms3 Discharge Instructions: - Discharge Summary Sheet ms3 - Colostomy Home Guide, Adult ms3 Forms: - Medication Reconciliation Form ms3 - Thank You Letter ms3 - Antibiotic Education ms3 - Prescription Opioid Use ms3 Signatures: Abril Noonan RN RN jl7 Saad Alberto DO DO ms3 Corrections: (The following items were deleted from the chart) 08: 08:19 . ms3 ms3
[2022-06-18 09:23] VITALS: BP 102/76; TEMP 97.5; O2SAT 100
== END 2022-06-18 09:11 | disposition home or self-care (01) ==
LOC: ER 07:45
DX: K94.09 Other complications of colostomy (principal)
CPT/HCPCS: 99281

== ENCOUNTER 2022-06-22 18:44 | Emergency (ER) | payer SELFPAY ==
--- OUTSIDE RECORDS SUMMARY | 2022-06-22 20:33 | XMS REPORT | Continuity of Care Document ---
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 bowel [id number] capsules Health mg capsule 00:00: 23:59 elimination [...] intestinal ostomy loperamide 2021- No Altered 4mg Q.85882767 Take 2 [facility] (IMODIUM) 2 02-20 bowel [id number] capsules Health mg capsule 00:00: 23:59 elimination [...] intestinal ostomy loperamide 2021- No Altered 4mg Q.74023800 Take 2 [facility] (IMODIUM) 2 02-20 bowel [id number] capsules Health mg capsule 00:00: 23:59 elimination [...] intestinal ostomy loperamide 2021- No Altered 4mg Q.33766139 Take 2 [facility] (IMODIUM) 2 02-20 bowel [id number] capsules Health mg capsule 00:00: 23:59 elimination [...] intestinal ostomy loperamide 2021- No Altered 4mg Q.35290641 Take 2 [facility] (IMODIUM) 2 02-20 bowel [id number] capsules Health mg capsule 00:00: 23:59 elimination [...] intestinal ostomy loperamide 2021- No Altered 4mg Q.34422585 Take 2 [facility] (IMODIUM) 2 02-20 bowel [id number] capsules Health mg capsule 00:00: 23:59 elimination [...] intestinal ostomy loperamide 2021- No Altered 4mg Q.14796422 Take 2 [facility] (IMODIUM) 2 02-20-30 bowel [id number] capsules Health mg capsule 00:00: 23:59 elimination [...] 3 oral liquid 00 times daily nutritional 2021-0 Yes Malnutritio 1{packa Take 1 [facility] supplemment 6-21 n due to ge} Package by Health (BOOST) 00:00: starvation mouth 3 oral liquid 00 times daily nutritional 2021-0 Yes Malnutritio 1{packa Take 1 [facility] supplemment 6-21 n due to ge} Package by Health (BOOST) 00:00: starvation mouth 3 oral liquid 00 times daily nutritional 2021-0 Yes Malnutritio 1{packa Take 1 [facility] supplemment [...] 3 oral liquid 00 times daily nutritional 2021-0 Yes Malnutritio 1{packa Take 1 [facility] supplemment 6-21 n due to ge} Package by Health (BOOST) 00:00: starvation mouth 3 oral liquid 00 times daily nutritional 2021-0 Yes Malnutritio 1{packa Take 1 [facility] supplemment 6-21 n due to ge} Package by Health (BOOST) 00:00: starvation mouth 3 oral liquid 00 times daily nutritional 2021-0 Yes Malnutritio 1{packa Take 1 [facility] supplemment 6-21 n due to ge} Package by Health (BOOST) 00:00: starvation mouth 3 oral liquid 00 times daily nutritional 2021-0 Yes Malnutritio 1{packa Take 1 [facility] supplemment 6-21 n due to ge} Package by Health (BOOST) 00:00: starvation mouth 3 oral liquid 00 times daily nutritional 2021-0 Yes Malnutritio 1{packa Take 1 [facility] supplemment 6-21 n due to ge} Package by Health (BOOST) 00:00: starvation mouth 3 oral liquid 00 times daily nutritional 2021-0 Yes Malnutritio 1{packa Take 1 [facility] supplemment 6- n due to ge} Package by [facility] (BOOST) 00:00: starvation mouth 3 oral liquid 00 times daily psyllium 2021- No Altered 1{packe Take 1 [facility] (METAMUCIL) 02-11-30 bowel t} Packet by ealt 6 gram PwPk 00:00: 00:00 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 psyllium 2021- No Altered 1{packe Take 1 [place] (METAMUCIL) 02-1130 bowel t} [facility] by [facility] gram PwPk 00:00: 00:00 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 psyllium 2021- No Altered 1{packe Take 1 [place] (METAMUCIL) 02-1130 bowel t} Packet by [facility] 6 gram PwPk 00:00: 00:00 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 psyllium 2021- No Altered 1{packe Take 1 [place] (METAMUCIL) 02-1130 bowel t} Packet by [facility] 6 gram PwPk 00:00: 00:00 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 psyllium 2021- No Altered 1{packe Take 1 [place] (METAMUCIL) 02-1130 bowel t} Packet by [facility] 6 gram PwPk 00:00: 00:00 elimination [...] Lynne (METAMUCIL) 02-1130 bowel t} Packet by [facility] 6 gram PwPk 00:00: 00:00 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 psyllium 2021- No Altered 1{packe Take 1 [place] (METAMUCIL) 02-11 bowel t} Packet by [facility] 6 gram PwPk 00:00: 00:00 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 psyllium 2021- No Altered 1{packe Take 1 [place] (METAMUCIL) 02-11 bowel t} Packet by [facility] 6 gram PwPk 00:00: 00:00 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 psyllium 2021- No Altered 1{packe Take 1 [facility] (METAMUCIL) 02-11 bowel t} Packet by [facility] 6 gram PwPk 00:00: 00:00 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 psyllium 2021- No Altered 1{packe Take 1 [facility] (METAMUCIL) 02-11 bowel t} Packet by [facility] 6 gram PwPk 00:00: 00:00 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 ascorbic 2021- No Altered 250mg QD Take 1 Momin rris acid, 01-21 bowel tablet by [facility] vitamin C, 00:00: 23:59 elimination mouth 250 mg 00 :00 due to daily for tablet intestinal 60 days ostomy magnesium 2021- No Altered 800mg Q.5D Take 2 H arris oxide 01-21 bowel tablets by [facility] (MAG-OX) 00:00: 23:59 elimination mouth 2 400 mg 00 :00 due to times (241.3 mg intestinal daily for magnesium) ostomy 60 days tablet multivitami 2021- No Altered 1{tbl} QD Take 1 Lynne n with 01-21 bowel tablet by [facility] folic acid 00:00: 23:59 elimination mouth (THERA) 400 00 :00 due to daily for mcg tablet intestinal 60 days ostomy ascorbic 2021- No Altered 250mg QD Take 1 Momin rris acid, 01-21 bowel tablet by [facility] vitamin C, 00:00: 23:59 elimination mouth 250 mg 00 :00 due to daily for tablet intestinal 60 days ostomy magnesium 2021- No Altered 800mg Q.5D Take 2 H arris oxide 5- 07-30 bowel tablets by [facility] (MAG-OX) 00:00: 23:59 elimination mouth 2 400 [...] Momin rris acid, 01-21-30 bowel tablet by [facility] vitamin C, 00:00: 23:59 elimination mouth 250 [...] Momin rris acid, 01-21-30 bowel tablet by [facility] vitamin C, 00:00: 23:59 elimination mouth 250 mg 00 :00 due to daily for tablet intestinal 60 days ostomy magnesium 2021- No Altered 800mg Q.5D Take 2 H arris oxide 5- 07-30 bowel tablets by [facility] (MAG-OX) 00:00: 23:59 elimination mouth 2 400 [...] Momin rris acid, 01-21-30 bowel tablet by [facility] vitamin C, 00:00: 23:59 elimination mouth 250 mg 00 :00 due to daily for tablet intestinal 60 days ostomy magnesium 2021- No Altered 800mg Q.5D Take 2 H arris oxide -23 03-30 bowel tablets by [facility] (MAG-OX) 00:00: 23:59 elimination mouth 2 400 mg 00 :00 due to times (241.3 mg intestinal daily for magnesium) ostomy 60 days tablet multivitami 2021- No Altered 1{tbl} QD Take 1 [facility]ne n with 01-21-30 bowel tablet by [facility] folic acid 00:00: 23:59 elimination mouth (THERA) 400 00 :00 due to daily for mcg tablet intestinal 60 days ostomy ascorbic 2021- No Altered 250mg QD Take 1 Momin rris acid, 01-21-30 bowel tablet by [facility] vitamin C, 00:00: 23:59 elimination mouth 250 mg 00 :00 due to daily for tablet intestinal 60 days ostomy magnesium 2021- No Altered 800mg Q.5D Take 2 H arris oxide 01-21-30 bowel tablets by [facility] (MAG-OX) 00:00: 23:59 elimination mouth 2 400 [...] Momin rris acid, 01-21-30 bowel tablet by [facility] vitamin C, 00:00: 23:59 elimination mouth 250 mg 00 :00 due to daily for tablet intestinal 60 days ostomy magnesium 2021- No Altered 800mg Q.5D Take 2 H arris oxide 5-23 03-30 bowel tablets by [facility] (MAG-OX) 00:00: 23:59 elimination mouth 2 400 [...] rris acid, 5-31 07-30 bowel tablet by Health vitamin C, 00:00: 23:59 elimination mouth 250 mg 00 :00 due to daily for tablet intestinal 60 days ostomy magnesium 2021- No Altered 800mg Q.5D Take 2 H arris oxide 5-23 03-30 bowel tablets by [facility] ([facility]) 00:00: 23:59 elimination mouth 2 400 mg 00 :00 due to times (241.3 mg intestinal daily for magnesium) ostomy 60 days tablet multivitami 2021- No Altered 1{tbl} QD Take 1 [facility]ne n with 01-21-30 bowel tablet by [facility] folic acid 00:00: 23:59 elimination mouth (THERA) 400 00 :00 due to daily for mcg tablet intestinal 60 days ostomy ascorbic 2021- No Altered 250mg QD Take 1 Momin rris acid, 01-21 bowel tablet by [facility] vitamin C, 00:00: 23:59 elimination mouth 250 mg 00 :00 due to daily for tablet intestinal 60 days ostomy magnesium 2021- No Altered 800mg Q.5D Take 2 H arris oxide 01-21-30 bowel tablets by [facility] ([facility]) 00:00: 23:59 elimination mouth 2 400 mg 00 :00 due to times (241.3 mg intestinal daily for magnesium) ostomy 60 days tablet multivitami 2021- No Altered 1{tbl} QD Take 1 [place]ne n with 01-21 bowel tablet by [facility] folic acid 00:00: 23:59 elimination mouth (THERA) 400 00 :00 due to daily for mcg tablet intestinal 60 days ostomy ascorbic 2021- No Altered 250mg QD Take 1 Momin rris acid, 01-2130 bowel tablet by [facility] vitamin C, 00:00: 23:59 elimination mouth 250 mg 00 :00 due to daily for tablet intestinal 60 days ostomy magnesium 2021- No Altered 800mg Q.5D Take 2 H arris oxide 5-23 03-30 bowel tablets by [facility] ([facility]) 00:00: 23:59 elimination mouth 2 400 mg [...] days ostomy loperamide 2021- No Altered 4mg Q.89019906 Take 2 [facility] (IMODIUM) 2 01-21 bowel [id number] capsules Health mg capsule 00:00: 00:00 elimination [...] days ostomy loperamide 2021- No Altered 4mg Q.16268548 Take 2 [facility] (IMODIUM) 2 01-21 bowel [id number] capsules Health mg capsule 00:00: 00:00 elimination [...] QD Take 1 Compa ris sulfate 325 5-31 06-30 bowel tablet by H ealth mg (65 mg 00:00: 00:00 elimination mouth iron) 00 :00 due to daily for tablet intestinal 60 days ostomy loperamide No Altered 4mg Q.47758347 Take 2 [facility] (IMODIUM) 2 01-21 bowel [id number] capsules Health mg capsule 00:00: 00:00 elimination [...] days ostomy loperamide 2021- No Altered 4mg Q.91441512 Take 2 [facility] (IMODIUM) 2 01-21 bowel [id number] capsules Health mg capsule 00:00: 00:00 elimination [...] days ostomy loperamide 2021- No Altered 4mg Q.00362498 Take 2 [facility] (IMODIUM) 2 01-21 bowel [id number] capsules Health mg capsule 00:00: 00:00 elimination [...] days ostomy loperamide 2021- No Altered 4mg Q.22795791 Take 2 [facility] (IMODIUM) 2 01-2130 bowel [id number] capsules Health mg capsule 00:00: 00:00 elimination [...] days ostomy loperamide 2021- No Altered 4mg Q.01658403 Take 2 [facility] (IMODIUM) 2 01-21 bowel [id number] capsules Health mg capsule 00:00: 00:00 elimination [...] days ostomy loperamide 2021- No Altered 4mg Q.07399381 Take 2 [facility] (IMODIUM) 2 01-21 bowel [id number] capsules Health mg capsule 00:00: 00:00 elimination [...] 60 days ostomy loperamide No Altered 4mg Q.92546827 Take 2 [facility] (IMODIUM) 2 01-21 bowel [id number] capsules Health mg capsule 00:00: 00:00 elimination [...] days ostomy loperamide 2021- No Altered 4mg Q.97749073 Take 2 [facility] (IMODIUM) 2 01-2130 bowel [id number] capsules Health mg capsule 00:00: 00:00 elimination [...] QD Take 1 Compa ris sulfate 325 5-31 06-30 bowel tablet by H ealth mg (65 mg 00:00: 00:00 elimination mouth iron) 00 :00 due to daily for tablet intestinal 60 days ostomy loperamide No Altered 4mg Q.44854662 Take 2 [facility] (IMODIUM) 2 01-21 bowel [id number] capsules Health mg capsule 00:00: 00:00 elimination [...] 60 days ostomy loperamide No Altered 4mg Q.57591815 Take 2 [facility] (IMODIUM) 2 01-21 bowel [id number] capsules Health mg capsule 00:00: 00:00 elimination 3D by mouth 3 00 :00 due to times intestinal daily ostomy (before meals) for 30 days psyllium 2021- No Altered 1{packe Q.20622437 Take 1 [facility] (METAMUCIL) 01-21 bowel t} [id number] Packet by [facility] 6 gram PwPk 00:00: 00:00 elimination 3D mouth 3 00 :00 due to times intestinal daily ostomy (before meals) for 90 days psyllium 2021- No Altered 1{packe Q.09495342 Take 1 [facility] (METAMUCIL) 01-21 bowel t} [id number] Packet by [facility] 6 gram PwPk 00:00: 00:00 elimination 3D mouth 3 00 :00 due to times intestinal daily ostomy (before meals) for 90 days psyllium 2021- No Altered 1{packe Q.62610287 Take 1 [facility] (METAMUCIL) 01-21 bowel t} [id number] Packet by [facility] 6 gram PwPk 00:00: 00:00 elimination 3D mouth 3 00 :00 due to times intestinal daily ostomy (before meals) for 90 days psyllium 2021- No Altered 1{packe Q.45736257 Take 1 [facility] (METAMUCIL) 01-21 bowel t} [id number] Packet by Health 6 gram PwPk 00:00: 00:00 elimination 3D mouth 3 00 :00 due to times intestinal daily ostomy (before meals) for 90 days psyllium 2021- No Altered 1{packe Q.31487037 Take 1 [facility] (METAMUCIL) 01-21 bowel t} [id number] Packet by [facility] 6 gram PwPk 00:00: 00:00 elimination 3D mouth 3 00 :00 due to times intestinal daily ostomy (before meals) for 90 days psyllium 2021- No Altered 1{packe Q.03518425 Take 1 [facility] (METAMUCIL) 01-21 bowel t} [id number] Packet by [facility] 6 gram PwPk 00:00: 00:00 elimination 3D mouth 3 00 :00 due to times intestinal daily ostomy (before meals) for 90 days psyllium 2021- No Altered 1{packe Q.17561755 Take 1 [facility] (METAMUCIL) 01-21 bowel t} [id number] Packet by [facility] 6 gram PwPk 00:00: 00:00 elimination 3D mouth 3 00 :00 due to times intestinal daily ostomy (before meals) for 90 days psyllium 2021- No Altered 1{packe Q.11885299 Take 1 [facility] (METAMUCIL) 01-21 bowel t} [id number] Packet by [facility] 6 gram PwPk 00:00: 00:00 elimination 3D mouth 3 00 :00 due to times intestinal daily ostomy (before meals) for 90 days psyllium 2021- No Altered 1{packe Q.63258718 Take 1 [facility] (METAMUCIL) 01-21 bowel t} [id number] Packet by [facility] 6 gram PwPk 00:00: 00:00 elimination 3D mouth 3 00 :00 due to times intestinal daily ostomy (before meals) for 90 days psyllium 2021- No Altered 1{packe Q.77537261 Take 1 [facility] (METAMUCIL) 01-21 bowel t} [id number] Packet by [facility] 6 gram PwPk 00:00: 00:00 elimination 3D mouth 3 00 :00 due to times intestinal daily ostomy (before meals) for 90 days psyllium 2021- No Altered 1{packe Q.56826926 Take 1 [facility] (METAMUCIL) 01-21 bowel t} [id number] Packet by [facility] 6 gram PwPk 00:00: 00:00 elimination 3D mouth 3 00 :00 due to times intestinal daily ostomy (before meals) for 90 days psyllium 2021- No Altered 1{packe Q.87391831 Take 1 [facility] (METAMUCIL) 01-21 bowel t} [id number] Packet by [facility] 6 gram PwPk 00:00: 00:00 elimination 3D mouth 3 00 :00 due to times intestinal daily ostomy (before meals) for 90 days tamsulosin 2021- No Benign .4mg QD Take 1 Momin rris (FLOMAX) 01-12 prostatic capsule by [facility] 0.4 mg 00:00: 00:00 hyperplasia mouth capsule 00 :00 , daily. unspecified Start on whether 01/12/2022. lower urinary tract symptoms present tamsulosin 2021- No Benign .4mg QD Take 1 Momin rris (FLOMAX) 01-12 prostatic capsule by [facility] 0.4 mg 00:00: 00:00 hyperplasia mouth capsule 00 :00 , daily. unspecified Start on whether 01/12/2022. lower urinary tract symptoms present tamsulosin 2021- No Benign .4mg QD Take 1 Momin rris (FLOMAX) 01-12 prostatic capsule by [facility] 0.4 mg 00:00: 00:00 hyperplasia mouth capsule 00 :00 , daily. unspecified Start on whether 01/12/2022. lower urinary tract symptoms present tamsulosin 2021- No Benign .4mg QD Take 1 Momin rris (FLOMAX) 01-12- prostatic capsule by Health 0.4 mg 00:00: 00:00 hyperplasia mouth capsule 00 :00 , daily. unspecified Start on whether 01/12/2022. lower urinary tract symptoms present tamsulosin 2021-2021- No Benign .4mg QD Take 1 Momin rris (FLOMAX) 01-12- prostatic capsule by [facility] 0.4 mg 00:00: 00:00 hyperplasia mouth capsule 00 :00 , daily. unspecified Start on whether 01/12/2022. lower urinary tract symptoms present tamsulosin 2021-2021- No Benign .4mg QD Take 1 Momin rris (FLOMAX) 01-12 prostatic capsule by [facility] 0.4 mg 00:00: 00:00 hyperplasia mouth capsule 00 :00 , daily. unspecified Start on whether 01/12/2022. lower urinary tract symptoms present tamsulosin 2021-2021- No Benign .4mg QD Take 1 Momin rris (FLOMAX) 01-12 prostatic capsule by [facility] 0.4 mg 00:00: 00:00 hyperplasia mouth capsule 00 :00 , daily. unspecified Start on whether 01/12/2022. lower urinary tract symptoms present tamsulosin 2021-2021- No Benign .4mg QD Take 1 Momin rris (FLOMAX) 01-12 prostatic capsule by [facility] 0.4 mg 00:00: 00:00 hyperplasia mouth capsule 00 :00 , daily. unspecified Start on whether 01/12/2022. lower urinary tract symptoms present tamsulosin 2021-2021- No Benign .4mg QD Take 1 Momin rris (FLOMAX) 01-12 prostatic capsule by [facility] 0.4 mg 00:00: 00:00 hyperplasia mouth capsule 00 :00 , daily. unspecified Start on whether 01/12/2022. lower urinary tract symptoms present tamsulosin 2021-2021- No Benign .4mg QD Take 1 Momin rris (FLOMAX) 01-12-31 prostatic capsule by [facility] 0.4 mg 00:00: 00:00 hyperplasia mouth capsule [...] 01/12/2022. lower urinary tract symptoms present cyanocobala 0 Yes Malnutritio 1000ug QD Take [...] oral liquid 00 :00 times daily nutritional 2021-0 2021- No Malnutritio 1{packa Take 1 [facility] supplemment 5-21 06-21 n due to ge} Package by Health (BOOST) 00:00: 00:00 starvation mouth 3 oral liquid 00 :00 times daily nutritional 2021-0 2021- No Malnutritio 1{packa Take 1 Lynne [...] (IMODIUM) 2 5-21 05-21 stoma capsule by [facility] mg capsule 00:00: 00:00 mouth once 00 [...] 09/07/21 at 2045, [facility] iopamidol 2021- No [id number] 100mL 100 mL, [facility] (ISOVUE 09-08 Intravenou [...] Indication s: acute pain ondansetron 2022-0 Yes [id number] 4mg Take 1 [facility] 4 mg 1-15 [...] Indication s: acute pain ondansetron 2-0 Yes [id number] 4mg Take 1 [facility] 4 mg 1-15 [...] Indication s: acute pain ondansetron 2021-0 Yes [id number] 4mg Take 1 [facility] 4 mg 1-15 [...] Indication s: acute pain ondansetron 2022-0 Yes [id number] 4mg Take 1 [facility] 4 mg 1-15 [...] Indication s: acute pain ondansetron 2022-0 Yes [id number] 4mg Take 1 [facility] 4 mg 1-15 tablet by ity of disintegrat 00:00: mouth [place] ing tablet 00 every 8 Medica l (eight) Branch hours as needed for Nausea and Vomiting (N/V). traMADoL 50 0 2- No [id number] 50mg Take 1 Uni vers mg tablet 1-15 08-10 tablet by ity of 00:00: 00:00 mouth [place] 00 :00 every 6 Medical (six) Branch hours as needed for Pain (scale 4-6). Indication s: acute pain ondansetron 0 2021- No [id number] 4mg Take 1 [facility] 4 mg 1-15 [...] mcg tablet 00:00: mouth [place] 00 daily. [facility] Branch vitamin 2021-0 Yes 1000ug Take 1 Univer s B-12 1,000 1-13 tablet by ity of mcg tablet 00:00: mouth [place] 00 daily. [facility] Branch vitamin 2021-0 Yes 1000ug Take 1 Univer s B-12 1,000 1-13 tablet by ity of mcg tablet 00:00: mouth [place] 00 daily. [facility] Branch vitamin 2021-0 Yes 1000ug Take 1 Univer s B-12 1,000 1-13 tablet by ity of mcg tablet 00:00: mouth [place] 00 daily. [facility] Branch vitamin 2-0 Yes 1000ug Take 1 Univer s B-12 1,000 1-13 tablet by ity of mcg tablet 00:00: mouth [place] 00 daily. [facility] Branch vitamin 2-0 Yes 1000ug Take 1 Univer s B-12 1,000 1-13 tablet by ity of mcg tablet 00:00: mouth [place] 00 daily. [facility] Branch vitamin 2-0 Yes 1000ug Take 1 [...] Branch daily with meals. loperamide 2022-0 Yes [id number] 2mg Take 1 [facility] 2 mg 1-12 [...] Branch daily with meals. loperamide 2022-0 Yes [id number] 2mg Take 1 [facility] 2 mg 1-12 [...] Branch daily with meals. loperamide 2022-0 Yes [id number] 2mg Take 1 [facility] 2 mg 1-12 [...] Branch daily with meals. loperamide 2022-0 Yes [id number] 2mg Take 1 [facility] 2 mg 1-12 [...] Branch daily with meals. loperamide 2022-0 Yes [id number] 2mg Take 1 [facility] 2 mg 1-12 [...] Branch daily with meals. loperamide 2022-0 Yes [id number] 2mg Take 1 [facility] 2 mg 1-12 [...] Branch daily with meals. loperamide 2022-0 Yes [id number] 2mg Take 1 [facility] 2 mg 1-12 [...] Branch daily with meals. loperamide 2022-0 Yes [id number] 2mg Take 1 [facility] 2 mg 1-12 [...] tablet by ity of tablet 00:00: mouth [place] (three) Medical times Branch daily with meals. loperamide 2022-0 Yes [id number] 2mg Take 1 [facility] 2 mg 1-12 capsule by ity of capsule 00:00: mouth [place] (two) Medical times Branch daily. psyllium 2022-0 Yes 1{packe Take 1 Univ ers 3.4 gram 1-12 t} Packet by ity of packet 00:00: mouth [place] (two) Medical times Branch daily. acetaminoph 2022-0 [...] daily with meals. loperamide 2022-0 2022- No [id number] 2mg Take 1 [facility] 2 mg 1-12 [...] , Starting on 09/03/21 at 0345, Until Tu09/03/21 at 0826, Routine sulfur 2021- No [id number] 5mL 5 mL, Unive rs hexafluorid 09-02 [...] 08 Oral, ity of (PROTONIX) 15:00: DAILY, [place] [...] 0800, Until Discontinu ed, Routine NaCl 0.9% 2-0 2022- No at 125 Unive rs (NS) [...] 00 :00 dose, On Medical 1,000 mg [facility] 08/29/21 Branc h at 1830, Routine lidocaine 2021-0 2021- No 10mL 10 mL, Unive rs 2% viscous 08-30 Oral, ity of (LIDOCAINE 00:30: 00:20 ONCE, 1 [place] as VISCOUS) 2 00 :00 dose, On Medic al % solution [facility] 08/29/21 Bra nch 10 mL at 1830, JOÃO benzonatate 2021- No 100mg 100 mg, U nivers (TESSALON 1-07 -07 Oral, ity of PERLES) 00:30: 00:22 ONCE, 1 [place] capsule 100 00 :00 dose, On Medi mariusz mg [place] 08/29/21 Branch at 1830, Routine No known No Univers medications 1-06 ity of 19:35: [place] 26 Medical Branch NaCl 0.9% 2020-08 Yes 10mL 10 mL, Univer s (NS) 2-12 Slow IV ity of injection 19:13: Push, PRN, [place] 10 mL 37 Starting Medical on [place] [facility] 08/04/21 at 1313, Until Discontinu ed, Routine, line maintenanc e lidocaine 2020-08 Yes 5mL 5 mL, Univers 1% (PF) 2-12 Subcutaneo ity of (XYLOCAINE) 19:13: us, PRN, [place] injection 5 37 Starting Medi mariusz mL on [place] [facility] 08/04/21 at 1313, Until Discontinu ed, Routine, Local anesthesia dextrose 5% 2020-08 Yes IV Univer s and 0.45% 2-12 Infusion, ity o f NaCl with 16:00: CONTINUOUS [place] KCl 40 mEq 00 , Starting Med ical 1,000 mL IV on [place] [facility] Solution 08/04/21 at 1000, Until Discontinu [...] Yes 2{packe 2 Packet, U nivers (METAMUCIL - t} Oral, TID, ity of FIBER 14:00: [...] Wed Medical mg tablet 1 07/31/21 at [place] tablet 0930, Until Discontinu ed, Routine iopamidol 2020-08 No [id number] 100mL 100 mL, Univers (ISOVUE 10-01 Intravenou ity o f 370-500 mL) 05:14: 05:14 s, ONCE, 1 [place] injection 00 :00 dose, On Medica l [address] [facility] 07/30/21 at 2315, Routine morpHINE 2020-08 No 2mg 2 mg, Slow Un piyush injection 2 09-30 IV Push, ity of mg 17:00: 17:10 ONCE, 1 [place] 00 :00 dose, On Medical [facility] 07/30/21 at 1115, Routine enoxaparin 2020-08 Yes 40mg 40 mg, Unive rs (LOVENOX) 09-30 Subcutaneo ity of injection 15:00: us, DAILY, [place] 40 mg 00 First dose Medical (after Branch last modificati on) on [facility] 07/30/21 at 0900, Until Discontinu ed, Routine pantoprazol 2020-08 No 40mg 40 mg, Uni vers e 09-30 Oral, ity of (PROTONIX) 15:00: 13:40 DAILY, [place] EC tablet 00 :20 First dose Medi mariusz [address] [facility] 07/30/21 at 0900, Until Discontinu ed, Routine loperamide 2020-08 No 4mg 4 mg, Unive rs (IMODIUM 09-30 Oral, TID, ity of A-D) 14:00: 13:19 First dose [place] capsule 4 00 :28 on [facility] mg 07/30/21 at Branch 0800, Until Discontinu ed, Routine psyllium 2020-08- No 1{packe 1 Packet, Univers (METAMUCIL 09-30 t} Oral, TID, it y of FIBER 14:00: 13:19 First dose [place] SINGLES) 00 :28 on [facility] 3.4 gram 07/30/21 at [facility] h packet 1 0800, Packet Until [...] 07/29/21 at 2130, STAT psyllium 2020-08 Yes [id number] 1{packe Take 1 Univers 3.4 gram 2-03 t} Packet by ity of packet 00:00: mouth 3 [place] 00 (three) Medical times Branch daily. loperamide 2020-08 Yes [id number] 4mg Take 2 Univers 2 mg 2-03 capsules ity of capsule 00:00: [place] mouth 3 [place] (three) Medical times Branch daily. pantoprazol 2020-08 Yes [id number] 40mg Take 1 Univers e 40 mg EC 2-03 tablet by ity of tablet 00:00: mouth [place] 00 daily. Medical Branch psyllium 2020-08 Yes [id number] 1{packe Take 1 [facility] 3.4 gram 2-03 t} Packet by ity of packet 00:00: mouth 3 [place] 00 (three) Medical times Branch daily. loperamide 2020-08 Yes [id number] 4mg Take 2 Univers 2 mg 2-03 capsules ity of capsule 00:00: by mouth 3 [place] 00 (three) Medical times Branch daily. pantoprazol 2020-08 Yes [id number] 40mg Take 1 Univers e 40 mg EC 2-03 tablet by ity of tablet 00:00: mouth [place] 00 daily. Medical Branch psyllium 2020-08- No [id number] 1{packe Take 1 [facility] 3.4 gram 2-03 12-13 t} Packet by ity o f packet 00:00: 00:00 mouth 3 [place] 00 :00 (three) Medical times Branch daily. loperamide 2020-08- No [id number] 4mg Take 2 Univers 2 mg 2-03 12-13 capsules ity of capsule 00:00: 00:00 by mouth 3 [place] as 00 :00 (three) Medical times Branch daily. pantoprazol 2020-08- No [id number] 40mg Take 1 Univers e 40 mg EC 2-03 12-13 tablet by ity of tablet 00:00: 00:00 mouth [place] 00 :00 daily. Medical Branch psyllium 2020-08- No [id number] 1{packe Take 1 Univers 3.4 gram 2-03 12-03 t} Packet by ity o f packet 00:00: 00:00 mouth 3 [place] 00 :00 (three) Medical times Branch daily for 90 days. loperamide 2020-08- No [id number] 4mg Take 2 Univers 2 mg 2-07-26 capsules ity of capsule 00:00: 00:00 by mouth 3 [place] 00 :00 (three) Medical times Branch daily for 90 days. pantoprazol 2020-08- No [id number] 40mg Take 1 Univers e 40 mg EC 2-07-26 tablet by ity of tablet 00:00: 00:00 mouth [place] 00 :00 daily for Medical 90 days. Branch psyllium 2020-08- No [id number] 1{packe Take 1 Univers 3.4 gram 2-07-26 t} Packet by ity o f packet 00:00: 00:00 mouth 3 [place] 00 :00 (three) Medical times Branch daily. pantoprazol 2020-08- No [id number] 40mg Take 1 Univers e 40 mg EC 207-26 tablet by ity of tablet 00:00: 00:00 mouth [place] 00 :00 daily. Medical Branch loperamide 2020-08- No [id number] 4mg Take 2 Univers 2 mg 207-26 capsules ity of capsule 00:00: 00:00 by mouth 3 [place] 00 :00 (three) Medical times Branch daily. psyllium 2020-08- No [id number] 1{packe Take 1 Univers 3.4 gram 09-26 t} Packet by ity o f packet 00:00: 00:00 mouth 3 [place] 00 :00 (three) Medical times Branch daily. loperamide 2020-08- No [id number] 4mg Take 2 Univers 2 mg 09-26 capsules ity of capsule 00:00: 00:00 by mouth 3 [place] 00 :00 (three) Medical times Branch daily. pantoprazol 2020-08- No [id number] 40mg Take 1 Univers e 40 mg [...] No 1{packe 1 Packet, Univers (METAMUCIL 2- 12- t} Oral, BID, it y of [...] Oral, ity of FIBER 15:00: 11:41 DAILY, [place] SINGLES) 00 :12 First dose Medic al [...] D5W 0.45% 2020-08- No IV Univers NaCl 09-22 Infusion, ity [...] 1-30 Oral, ity of (TYLENOL) 07:31: Q6HPRN, [place] tablet 650 37 Starting Medic al mg on [facility] Branch 07/23/21 at 0131, Until Discontinu ed, Routine, Pain (scale 1-3) NaCl 0.9% 2020-08 No 1000mL at 999 Uni vers (NS) bolus -30 11-30 mL/hr, ity of infusion 06:46: 07:00 1,000 mL, [place] 1,000 mL 00 :00 IV Medical Piggyback, [place] ONCE, 1 dose, On Thu07/23/21 at 0100, STAT heparin 2020-08 Yes 5000U 5,000 Univers (porcine) 0-09 Units, ity of injection 22:00: [place]cut[place]o [place] 5,000 Units 00 us, Q8H, Medi mariusz First dose Branch on [facility] 06/01/21 at 1700, Until Discontinu ed, Routine pantoprazol 2020-08 Yes 40mg 40 mg, Univ ers e 0-09 Oral, BID, ity of (PROTONIX) 14:45: First dose [place] EC tablet 00 on [facility] 40 mg 06/01/21 at Branch 0945, Until Discontinu ed, Routine psyllium 2020-08 Yes 1{packe 1 Packet, U nivers (METAMUCIL 0-09 t} Oral, ity of FIBER 14:45: DAILY, [place] SINGLES) 00 First dose Medic al 3.4 gram on [facility] Branch packet 1 06/01/21 at Packet 0945, Until Discontinu ed, Routine traMADoL 2020-08 Yes 50mg 50 mg, Univers (ULTRAM) 0-09 Oral, ity of tablet 50 14:39: Q6HPRN, [place] mg 34 Starting Medical on [facility] Branch 06/01/21 at 0939, Until Discontinu ed, Routine, Pain (scale 4-6) HYDROcodone 2020-08 Yes 1{tbl} 1 tablet, Univers -acetaminop 0-09 Oral, ity of hen (NORCO 14:39: Q6HPRN, [place] 5) 5-325 mg 16 Starting Medi mariusz tablet 1 on [facility] Branch tablet 06/01/21 at 0939, Until Discontinu ed, Routine, Pain (scale 7-10) ondansetron 2020-08 Yes 4mg 4 mg, Slow Univers (ZOFRAN 0-09 IV Push, ity of (PF)) 14:38: Q6HPRN, [place] injection 4 58 Starting Medi mariusz mg on [facility] Branch 06/01/21 at 0938, Until Discontinu ed, Routine, Nausea and Vomiting (N/V) acetaminoph 2020-08 Yes 650mg 650 mg, Un piyush en 0-09 Oral, ity of (TYLENOL) 14:36: Q6HPRN, [place] tablet 650 07 Starting Medic al mg on [facility] Branch 06/01/21 at 0936, Until Discontinu [...] as 1,000 mL 00 :00 IV [facility], Branch ONCE, 1 dose, On Thu05/31/21 at 2045, STAT iopamidol 2020-08- No [id number] 100mL 100 mL, Univers (ISOVUE 0-09 10-09 [...] No 8mg 8 mg, Slow Univers (ZOFRAN 0- 10-08 IV Push, ity of (PF)) 23:30: [...] On Thu05/31/21 at 1830, STAT psyllium Yes [id number] 1{packe Take 1 Univers 3.4 gram 9-29 t} Packet by ity of packet 00:00: mouth [place] 00 daily. Medical Branch psyllium Yes [id number] 1{packe Take 1 [facility] 3.4 gram 9-29 t} Packet by ity of packet 00:00: mouth [place] 00 daily. Medical Branch psyllium Yes [id number] 1{packe Take 1 [facility] 3.4 gram 9-29 t} Packet by ity of packet 00:00: mouth [place] 00 daily. Medical Branch psyllium Yes [id number] 1{packe Take 1 Univers 3.4 gram 9-29 t} Packet by ity of packet 00:00: mouth [place] 00 daily. Medical Branch psyllium Yes [id number] 1{packe Take 1 Univers 3.4 gram 9-29 t} Packet by ity of packet 00:00: mouth [place] 00 daily. Medical Branch psyllium 2020- No [id number] 1{packe Take 1 Univers 3.4 gram 9-29 [...] Starting Medi mariusz mg on Thu05/20/21 at 1915, Until Discontinu ed, Routine, Nausea [...] 650 01 Starting Medic al mg on Thu05/20/21 at 1915, Until Discontinu ed, Routine, Pain [...] Routine lactated 2020- No 2000mL at 999 [facility] ers ringers IV 05-20 mL/hr, ity of infusion 22:02: 22:36 2,000 mL, [place] 2,000 mL 00 :00 Intravenou Medic al s, ONCE, 1 Branch dose, On Thu05/20/21 at 1715, JOÃO ondansetron 2020- No 4mg 4 mg, Slow Univers (ZOFRAN 05-20 IV Push, ity of (PF)) 21:00: 20:15 ONCE, 1 [place] injection 4 00 :00 dose, On Medi mariusz mg Thu [place] 05/20/21 at 1600, JOÃO morpHINE 2020- No 4mg 4 mg, Slow Un piyush injection 4 05-20 IV Push, ity of mg 21:00: 20:15 ONCE, 1 [place] 00 :00 dose, On Medical [facility] 05/20/21 at 1600, STAT NaCl 0.9% 2020- No 500mL at 999 [facility] ers (NS) bolus 05-20 mL/hr, 500 it y of infusion 21:00: 21:00 mL, IV [place] 500 mL 00 :00 Piggyback, Medical ONCE, 1 Branch dose, On [facility] 05/20/21 at 1600, STAT pantoprazol Yes 40mg 40 mg, Univ ers e 9-17 Oral, BID, ity of (PROTONIX) 01:00: First dose [place] EC tablet 00 on [facility] 40 mg 05/09/21 at [place] 1999, Until Discontinu ed, Routine pantoprazol Yes 40mg 40 mg, Univ ers e 9-17 Oral, BID, ity of (PROTONIX) 01:00: First dose [place] EC tablet 00 on [facility] 40 mg 05/09/21 at [place] 1999, Until Discontinu ed, Routine pantoprazol 2020- No [id number] 40mg Take 1 Univers e 40 mg EC 9-16 11-16 tablet by ity of tablet 00:00: 05:59 mouth 2 [place] 00 :00 (two) Medical times Branch daily pantoprazol 2020- No [id number] 40mg Take 1 Univers e 40 mg EC 9-16 11-16 tablet by ity of tablet 00:00: 05:59 mouth 2 [place] 00 :00 (two) Medical times Branch daily pantoprazol 2020- No [id number] 40mg Take 1 Univers e 40 mg EC 9-16 11-16 tablet by ity of tablet 00:00: 05:59 mouth 2 [place] 00 :00 (two) Medical times Branch daily pantoprazol 2020- No [id number] 40mg Take 1 Univers e 40 mg EC 9-16 11-16 tablet by ity of tablet 00:00: 05:59 mouth 2 [place] 00 :00 (two) Medical times Branch daily pantoprazol 2020- No [id number] 40mg Take 1 Univers e 40 mg EC 9-16 11-16 tablet by ity of tablet 00:00: 05:59 mouth 2 [place] 00 :00 (two) Medical times Branch daily pantoprazol 2020- No [id number] 40mg Take 1 Univers e 40 mg EC 9-16 11-16 tablet by ity of tablet 00:00: 05:59 mouth 2 [place] 00 :00 (two) Medical times Branch daily pantoprazol 2020- No [id number] 40mg Take 1 Univers e 40 mg [...] Q4HPRN, [place] 32 :[address] [facility] 05/07/21 at 2316, Until Thu05/08/21 at 2315, Routine, Pain (scale 7-10) diazePAM 2020-0 2020- No 5mg 5 mg, Slow Un piyush (VALIUM) 05-08 IV Push, ity of injection 5 02:45: 02:49 ONCE, 1 [place] mg 00 :00 dose, On [facility] 05/07/21 at 2145, STAT diazePAM 2020-2020- No 5mg 5 mg, Slow Un piyush (VALIUM) 05-08 IV Push, ity of injection 5 02:45: 02:49 ONCE, 1 [place] mg 00 :00 dose, On [facility] 05/07/21 at 2145, STAT iopamidol 2020- No [id number] 100mL 100 mL, Univers (ISOVUE 05-08 Intravenou ity o f 370-500 mL) 02:15: 01:08 s, ONCE, 1 [place] injection 00 :00 dose, On Medica l [address] [facility] 05/07/21 at 2115, Routine iopamidol 2020- No [id number] 100mL 100 mL, Univers (ISOVUE 05-08 Intravenou ity o f 370-500 mL) 02:15: 01:08 s, ONCE, 1 [place] injection 00 :00 dose, On Medica l [address] [facility] 05/07/21 at 2115, Routine morpHINE 2020-2020- No 4mg 4 mg, Slow Un piyush injection 4 05-08 IV Push, ity of mg 01:45: 00:48 ONCE, 1 [place] 00 :00 dose, On [facility] 05/07/21 at 2044, JOÃO ondansetron 2020-2020- No 4mg 4 mg, Slow Univers (ZOFRAN 05-08 IV Push, ity of (PF)) 01:45: 00:47 ONCE, 1 [place] injection 4 00 :00 dose, On Medi mariusz mg [facility] 05/07/21 at 2044, JOÃO morpHINE 2020- No 4mg 4 mg, Slow Un piyush injection 4 05-0815 IV Push, ity of mg 01:45: 00:48 ONCE, 1 [place] 00 :00 dose, On Medical Tue Branch 05/07/21 at 2044, JOÃO ondansetron 2020- No 4mg 4 mg, Slow Univers (ZOFRAN 05-08 IV Push, ity of (PF)) 01:45: 00:47 ONCE, 1 [place] injection 4 00 :00 dose, On Medi mariusz mg Tue Branch 05/07/21 at 2044, JOÃO flu vaccine 2020- No .5mL 0.5 mL, Un piyush 6 months 08-24 Intramuscu ity of and up (PF) 17:30: 18:09 lar, ONCE, [place] (FLUZONE 00 :00 1 dose, Medical QUAD 08/24/20 Branch at 1130, (PF)) Routine syringe 0.5 mL sulfamethox 2020- No 1{tbl} 1 tablet, [facility] azole-trime 08-24 Oral, BID, i ty of [...] of therapy: 72 hours sulfamethox 2020- No [id number] 1{tbl} Take 1 [facility] azole-trime 08-24 tablet by it y of [...] 14:00: First dose [place] SINGLES) 00 on [facility] Medical 3.4 gram 08/23/20 Branch packet 3 at 0800, Packet Until Discontinu ed, Routine heparin 2019-08 2020- No 5000U 5,000 Univers (porcine) 2-08-23 Units, ity of injection 14:00: 20:18 Subcut[place]o [place] 5,000 Units 00 :30 us, Q12H, Med ical First dose Branch on [facility] 08/23/20 at 0800, Until Discontinu ed, [...] f tablet 6 mg 03:12: - SEE [address] NS, 1 Branch dose, Starting Thu08/22/20 [...] IV Push, ity of (PF)) 03:12: Q6HPRN, [place] injection 4 08 Starting Medi mariusz mg [...] of 350 00:30: 00:14 s, ONCE, 1 [place] BULK-100 00 :00 dose, Mon Medica l mL) 07/09/20 Branch injection at 1830, 100 mL Routine cefTRIAXone 2019-08 No 1000mg 1,000 mg, Univers (ROCEPHIN) -07-10 IV ity of 1,000 mg in 23:30: 00:58 Piggyback, [place] NaCl 0.9% 00 :00 ONCE, 1 Medical (NS) 50 mL dose, [facility] Bran ch MINI-BAG 07/09/20 at 1730, 50 mL
Reas on for Anti-Infec tive: Documented Infection< br>Documen dain Infection Site: HEENT
D uration of Therapy: Other (see Comments) NaCl 0.9% 2019-08 No 1000mL at 999 Uni vers (NS) bolus -16 -17 mL/hr, ity of infusion 22:45: 00:07 1,000 mL, [place] 1,000 mL 00 :00 IV Medical Infusion, Branch ONCE, 1 dose, [facility] 07/09/20 at 1645, JOÃO amoxicillin 2019-08 Yes [id number] 1{tbl} Take 1 Univers -clavulanat 1-16 tablet by ity of e 875-125 00:00: mouth [place] mg per 00 every 12 Medical tablet (twelve) Branch hours. amoxicillin 2019-08- No [id number] 1{tbl} Take 1 Univers -clavulanat 1-16 08-24 [...] of Therapy: 7 days ibuprofen 2019-08 Yes [id number] 800mg Take 1 U nivers 800 mg 0-08 tablet by ity of tablet 00:00: mouth [place] 00 every 6 Medical (six) Branch hours as needed for Pain (scale 4-6). loperamide 2019-08 Yes [id number] 4mg Take 2 U nivers 2 mg 0-08 capsules ity of capsule 00:00: by mouth 4 [place] 00 (four) Medical times Branch daily. diphenoxyla 2019-08 Yes [id number] 1{tbl} Take 1 Univers te-atropine 0-08 tablet by ity of 2.5-0.025 00:00: mouth [place] mg tablet 00 every 8 Medical (eight) Branch hours. psyllium 2019-08 Yes [id number] 3{packe Take 3 Univers 3.4 gram 0-08 t} Packets by ity o f packet 00:00: mouth 3 [place] 00 (three) Medical times Branch daily. psyllium 2020-1 Yes [id number] 3{packe Take 3 Univers 3.4 gram 0-08 t} Packets by ity o f packet 00:00: mouth 3 [place] 00 (three) Medical times Branch daily. diphenoxyla 2020-1 Yes [id number] 1{tbl} Take 1 Univers te-atropine 0-08 tablet by ity of 2.5-0.025 00:00: mouth [place] mg tablet 00 every 8 Medical (eight) Branch hours. loperamide 2020-1 Yes [id number] 4mg Take 2 U nivers 2 mg 0-08 capsules ity of capsule 00:00: by mouth 4 [place] 00 (four) Medical times Branch daily. ibuprofen 2020-1 Yes [id number] 800mg Take 1 U nivers 800 mg 0-08 tablet by ity of tablet 00:00: mouth [place] 00 every 6 Medical (six) Branch hours as needed for Pain (scale 4-6). psyllium 2020-1 Yes [id number] 3{packe Take 3 Univers 3.4 gram 0-08 t} Packets by ity o f packet 00:00: mouth 3 00 (three) Medical times Branch daily. diphenoxyla 2020-1 Yes [id number] 1{tbl} Take 1 Univers te-atropine 0-08 tablet by ity of 2.5-0.025 00:00: mouth [place] mg tablet 00 every 8 Medical (eight) Branch hours. loperamide 2020-1 Yes [id number] 4mg Take 2 U nivers 2 mg 0-08 capsules ity of capsule 00:00: by mouth 4 [place] 00 (four) Medical times Branch daily. ibuprofen 2020-1 Yes [id number] 800mg Take 1 U nivers 800 mg 0-08 tablet by ity of tablet 00:00: mouth [place] 00 every 6 Medical (six) Branch hours as needed for Pain (scale 4-6). psyllium 2020-1 Yes [id number] 3{packe Take 3 Univers 3.4 gram 0-08 t} Packets by ity o f packet 00:00: mouth 3 [place] 00 (three) Medical times Branch daily. diphenoxyla 2020-1 Yes [id number] 1{tbl} Take 1 Univers te-atropine 0-08 tablet by ity of 2.5-0.025 00:00: mouth [place] mg tablet 00 every 8 Medical (eight) Branch hours. loperamide 2020-1 Yes [id number] 4mg Take 2 U nivers 2 mg 0-08 capsules ity of capsule 00:00: by mouth 4 [place] 00 (four) Medical times Branch daily. ibuprofen 2019- Yes [id number] 800mg Take 1 U nivers 800 mg 0-08 tablet by ity of tablet 00:00: mouth [place] 00 every 6 Medical (six) Branch hours as needed for Pain (scale 4-6). psyllium 2020- Yes [id number] 3{packe Take 3 Univers 3.4 gram 0-08 t} Packets by ity o f packet 00:00: mouth 3 [place] 00 (three) Medical times Branch daily. diphenoxyla 2020-1 Yes [id number] 1{tbl} Take 1 Univers te-atropine 0-08 tablet by ity of 2.5-0.025 00:00: mouth [place] mg tablet 00 every 8 Medical (eight) Branch hours. loperamide 2019- Yes [id number] 4mg Take 2 U nivers 2 mg 0-08 capsules ity of capsule 00:00: by mouth 4 [place] 00 (four) Medical times Branch daily. ibuprofen 2019- Yes [id number] 800mg Take 1 U nivers 800 mg 0-08 tablet by ity of tablet 00:00: mouth [place] 00 every 6 Medical (six) Branch hours as needed for Pain (scale 4-6). psyllium 2020-1 Yes [id number] 3{packe Take 3 Univers 3.4 gram 0-08 t} Packets by ity o f packet 00:00: mouth 3 [place] 00 (three) Medical times Branch daily. diphenoxyla 2020-1 Yes [id number] 1{tbl} Take 1 Univers te-atropine 0-08 tablet by ity of 2.5-0.025 00:00: mouth [place] mg tablet 00 every 8 Medical (eight) Branch hours. loperamide 2020-1 Yes [id number] 4mg Take 2 U nivers 2 mg 0-08 capsules ity of capsule 00:00: by mouth 4 [place] 00 (four) Medical times Branch daily. ibuprofen 2020- Yes [id number] 800mg Take 1 U nivers 800 mg 0-08 tablet by ity of tablet 00:00: mouth [place] 00 every 6 Medical (six) Branch hours as needed for Pain (scale 4-6). psyllium 2020- Yes [id number] 3{packe Take 3 Univers 3.4 gram 0-08 t} Packets by ity o f packet 00:00: mouth 3 [place] 00 (three) Medical times Branch daily. diphenoxyla 2020- Yes [id number] 1{tbl} Take 1 Univers te-atropine 0-08 tablet by ity of 2.5-0.025 00:00: mouth [place] mg tablet 00 every 8 Medical (eight) Branch hours. loperamide 2019- Yes [id number] 4mg Take 2 U nivers 2 mg 0-08 capsules ity of capsule 00:00: by mouth 4 [place] 00 (four) Medical times Branch daily. ibuprofen 2019- Yes [id number] 800mg Take 1 U nivers 800 mg 0-08 tablet by ity of tablet 00:00: mouth [place] 00 every 6 Medical (six) Branch hours as needed for Pain (scale 4-6). psyllium 2019- Yes [id number] 3{packe Take 3 Univers 3.4 gram 0-08 t} Packets by ity o f packet 00:00: mouth 3 [place] 00 (three) Medical times Branch daily. diphenoxyla 2019- Yes [id number] 1{tbl} Take 1 Univers te-atropine 0-08 tablet by ity of 2.5-0.025 00:00: mouth [place] mg tablet 00 every 8 Medical (eight) Branch hours. loperamide 2019- Yes [id number] 4mg Take 2 U nivers 2 mg 0-08 capsules ity of capsule 00:00: by mouth 4 [place] 00 (four) Medical times Branch daily. ibuprofen 2019- Yes [id number] 800mg Take 1 U nivers 800 mg 0-08 tablet by ity of tablet 00:00: mouth [place] 00 every 6 Medical (six) Branch hours as needed for Pain (scale 4-6). psyllium 2019- Yes [id number] 3{packe Take 3 Univers 3.4 gram 0-08 t} Packets by ity o f packet 00:00: mouth 3 [place] 00 (three) Medical times Branch daily. diphenoxyla 2020-1 Yes [id number] 1{tbl} Take 1 Univers te-atropine 0-08 tablet by ity of 2.5-0.025 00:00: mouth [place] mg tablet 00 every 8 Medical (eight) Branch hours. loperamide 2020-1 Yes [id number] 4mg Take 2 U nivers 2 mg 0-08 capsules ity of capsule 00:00: by mouth 4 [place] 00 (four) Medical times Branch daily. ibuprofen 2020- Yes [id number] 800mg Take 1 U nivers 800 mg 0-08 tablet by ity of tablet 00:00: mouth [place] 00 every 6 Medical (six) Branch hours as needed for Pain (scale 4-6). psyllium 2020-1 Yes [id number] 3{packe Take 3 Univers 3.4 gram 0-08 t} Packets by ity o f packet 00:00: mouth 3 [place] 00 (three) Medical times Branch daily. diphenoxyla 2020-1 Yes [id number] 1{tbl} Take 1 Univers te-atropine 0-08 tablet by ity of 2.5-0.025 00:00: mouth [place] mg tablet 00 every 8 Medical (eight) Branch hours. loperamide 2020-1 Yes [id number] 4mg Take 2 U nivers 2 mg 0-08 capsules ity of capsule 00:00: by mouth 4 [place] 00 (four) Medical times Branch daily. ibuprofen 2019- Yes [id number] 800mg Take 1 U nivers 800 mg 0-08 tablet by ity of tablet 00:00: mouth [place] 00 every 6 Medical (six) Branch hours as needed for Pain (scale 4-6). psyllium 2020-1 Yes [id number] 3{packe Take 3 Univers 3.4 gram 0-08 t} Packets by ity o f packet 00:00: mouth 3 [place] 00 (three) Medical times Branch daily. diphenoxyla 2020-1 Yes [id number] 1{tbl} Take 1 Univers te-atropine 0-08 tablet by ity of 2.5-0.025 00:00: mouth [place] mg tablet 00 every 8 Medical (eight) Branch hours. loperamide 2020-1 Yes [id number] 4mg Take 2 U nivers 2 mg 0-08 capsules ity of capsule 00:00: by mouth 4 [place] 00 (four) Medical times Branch daily. ibuprofen 2020-1 Yes [id number] 800mg Take 1 U nivers 800 mg 0-08 tablet by ity of tablet 00:00: mouth [place] 00 every 6 Medical (six) Branch hours as needed for Pain (scale 4-6). psyllium 2020-1 Yes [id number] 3{packe Take 3 Univers 3.4 gram 0-08 t} Packets by ity o f packet 00:00: mouth 3 [place] 00 (three) Medical times Branch daily. diphenoxyla 2020- Yes [id number] 1{tbl} Take 1 Univers te-atropine 0-08 tablet by ity of 2.5-0.025 00:00: mouth [place] mg tablet 00 every 8 Medical (eight) Branch hours. loperamide 2020- Yes [id number] 4mg Take 2 U nivers 2 mg 0-08 capsules ity of capsule 00:00: by mouth 4 [place] 00 (four) Medical times Branch daily. ibuprofen 2020- Yes [id number] 800mg Take 1 U nivers 800 mg 0-08 tablet by ity of tablet 00:00: mouth [place] 00 every 6 Medical (six) Branch hours as needed for Pain (scale 4-6). psyllium 2020- Yes [id number] 3{packe Take 3 Univers 3.4 gram 0-08 t} Packets by ity o f packet 00:00: mouth 3 [place] (three) Medical times Branch daily. diphenoxyla 2020-1 Yes [id number] 1{tbl} Take 1 Univers te-atropine 0-08 tablet by ity of 2.5-0.025 00:00: mouth [place] mg tablet 00 every 8 Medical (eight) Branch hours. loperamide 2020- Yes [id number] 4mg Take 2 U nivers 2 mg 0-08 capsules ity of capsule 00:00: by mouth 4 [place] 00 (four) Medical times Branch daily. ibuprofen 2020-1 Yes [id number] 800mg Take 1 U nivers 800 mg 0-08 tablet by ity of tablet 00:00: mouth [place] 00 every 6 Medical (six) Branch hours as needed for Pain (scale 4-6). psyllium 2020-1 Yes [id number] 3{packe Take 3 Univers 3.4 gram 0-08 t} Packets by ity o f packet 00:00: mouth 3 [place] 00 (three) Medical times Branch daily. diphenoxyla 2019-08 Yes [id number] 1{tbl} Take 1 Univers te-atropine 0-08 tablet by ity of 2.5-0.025 00:00: mouth [place] mg tablet 00 every 8 Medical (eight) Branch hours. loperamide 2019-08 Yes [id number] 4mg Take 2 U nivers 2 mg 0-08 capsules ity of capsule 00:00: by mouth 4 [place] 00 (four) Medical times Branch daily. ibuprofen 2019-08 Yes [id number] 800mg Take 1 U nivers 800 mg 0-08 tablet by ity of tablet 00:00: mouth [place] 00 every 6 Medical (six) Branch hours as needed for Pain (scale 4-6). acetaminoph 2019-08- No [id number] 650mg Take 2 Univers en 325 mg 0-08 10-09 tablets by ity of tablet 00:00: 04:59 mouth [place] 00 :00 every 6 Medical (six) Branch hours as needed for Pain (scale 1-3). acetaminoph 2019-08- No [id number] 650mg Take 2 Univers en 325 mg 0-08 10-09 tablets by ity of tablet 00:00: 04:59 mouth [place] 00 :00 every 6 Medical (six) Branch hours as needed for Pain (scale 1-3). acetaminoph 2019-08- No [id number] 650mg Take 2 Univers en 325 mg 0-08 10-09 tablets by ity of tablet 00:00: 04:59 mouth [place] 00 :00 every 6 Medical (six) Branch hours as needed for Pain (scale 1-3). acetaminoph 2019-08- No [id number] 650mg Take 2 Univers en 325 mg 0-08 10-09 tablets by ity of tablet 00:00: 04:59 mouth [place] 00 :00 every 6 Medical (six) Branch hours as needed for Pain (scale 1-3). acetaminoph 2019-08- No [id number] 650mg Take 2 Univers en 325 mg 0-08 10-09 tablets by ity of tablet 00:00: 04:59 mouth [place] 00 :00 every 6 Medical (six) Branch hours as needed for Pain (scale 1-3). acetaminoph 2019-08- No [id number] 650mg Take 2 Univers en 325 mg 0-08 10-09 tablets by ity of tablet 00:00: 04:59 mouth [place] 00 :00 every 6 Medical (six) Branch hours as needed for Pain (scale 1-3). acetaminoph 2019-08- No [id number] 650mg Take 2 Univers en 325 mg 0-08 10-09 tablets by ity of tablet 00:00: 04:59 mouth [place] 00 :00 every 6 Medical (six) Branch hours as needed for Pain (scale 1-3). acetaminoph 2019-08 No [id number] 650mg Take 2 Univers en 325 mg 0-08 10-09 tablets by ity of tablet 00:00: 04:59 mouth [place] 00 :00 every 6 Medical (six) Branch hours as needed for Pain (scale 1-3). acetamino 2019-08 No [id number] 650mg Take 2 Univers en 325 mg 0-08 10-09 tablets by ity of tablet 00:00: 04:59 mouth [place] 00 :00 every 6 Medical (six) Branch hours as needed for Pain (scale 1-3). acetaminoph 2019-08- No [id number] 650mg Take 2 Univers en 325 mg 0-08 10-09 tablets by ity of tablet 00:00: 04:59 mouth [place] 00 :00 every 6 Medical (six) Branch hours as needed for Pain (scale 1-3). acetamino 2019-08- No [id number] 650mg Take 2 [facility] en 325 mg 0-08 10-09 tablets by ity of tablet 00:00: 04:59 mouth [place] 00 :00 every 6 Medical (six) Branch hours as needed for Pain (scale 1-3). acetaminoph 2019-08- No [id number] 650mg Take 2 [facility] en 325 mg 0-08 10-09 tablets by ity of tablet 00:00: 04:59 mouth [place] 00 :00 every 6 Medical (six) Branch hours as needed for Pain (scale 1-3). acetaminoph 2019-08- No [id number] 650mg Take 2 [facility] en 325 mg 0-08 10-09 tablets by ity of tablet 00:00: 04:59 mouth [place] 00 :00 every 6 Medical (six) Branch hours as needed for Pain (scale 1-3). acetaminoph 2019-08 No [id number] 650mg Take 2 [facility] en 325 mg 0-08 10-09 tablets by ity of tablet 00:00: 04:59 mouth [place] 00 :00 every 6 Medical (six) Branch hours as needed for Pain (scale 1-3). psyllium 2019-08 No [id number] 3{packe Take 3 [facility] 3.4 gram 0-08 09-16 t} Packets by ity of packet 00:00: 00:00 mouth 3 [place] 00 :00 (three) Medical times Branch daily. diphenoxyla 2019-08 No [id number] 1{tbl} Take 1 [facility] te-atropine 0-08 09-16 tablet by it y of 2.5-0.025 00:00: 00:00 mouth [place] mg tablet 00 :00 every 8 Medical (eight) Branch hours. loperamide 2019-08 No [id number] 4mg Take 2 [facility] 2 mg 0-08 09-16 capsules ity of capsule 00:00: 00:00 by mouth 4 [place] [place] 00 :00 (four) Medical times Branch daily. ibuprofen 2019-08 No [id number] 800mg Take 1 [facility] 800 mg 0-08 09-16 tablet by ity of tablet 00:00: 00:00 mouth [place] 00 :00 every 6 Medical (six) Branch hours as needed for Pain (scale 4-6). acetaminoph 2019-08 No [id number] 650mg Take 2 [facility] en 325 mg 0-08 09-16 tablets by ity of tablet 00:00: 00:00 mouth [place] 00 :00 every 6 Medical (six) Branch hours as needed for Pain (scale 1-3). psyllium 2019-08 No [id number] 3{packe Take 3 [facility] 3.4 gram 0-08 09-16 t} Packets by ity of packet 00:00: 00:00 mouth 3 [place] 00 :00 (three) Medical times Branch daily. diphenoxyla 2019-08 No [id number] 1{tbl} Take 1 [facility] te-atropine 0-08 09-16 tablet by it y of 2.5-0.025 00:00: 00:00 mouth [place] mg tablet 00 :00 every 8 Medical (eight) Branch hours. loperamide 2019-08 [id number] 4mg Take 2 [facility] 2 mg 0-08 09-16 capsules ity of capsule 00:00: 00:00 by mouth 4 [place] 00 :00 (four) Medical times Branch daily. ibuprofen 2019-08 [id number] 800mg Take 1 [facility] 800 mg 0-08 09-16 tablet by ity of tablet 00:00: 00:00 mouth [place] 00 :00 every 6 Medical (six) Branch hours as needed for Pain (scale 4-6). acetaminoph 2019-08 [id number] 650mg Take 2 [facility] en 325 mg 0-08 09-16 tablets by ity of tablet 00:00: 00:00 mouth [place] 00 :00 every 6 Medical (six) Branch hours as needed for Pain (scale 1-3). acetaminoph 2019-08 [id number] 650mg Take 2 [facility] en 325 mg 0-08 10-08 tablets by ity of tablet 00:00: 00:00 mouth [place] 00 :00 every 6 Medical (six) Branch hours as needed for Pain (scale 1-3). ibuprofen 2019-08 [id number] 800mg Take 1 [facility] 800 mg 0-08 10-08 tablet by ity of tablet 00:00: 00:00 mouth [place] 00 :00 every 6 Medical (six) Branch hours as needed for Pain (scale 4-6). loperamide 2019-08 [id number] 4mg Take 2 [facility] 2 mg 0-08 10-08 capsules ity of capsule 00:00: 00:00 by mouth 4 [place] 00 :00 (four) Medical times Branch daily. diphenoxyla 2019-08 No [id number] 1{tbl} Take 1 [facility] te-atropine 0-08 10-08 tablet by it y of 2.5-0.025 00:00: 00:00 mouth [place] mg tablet 00 :00 every 8 Medical (eight) Branch hours. psyllium 2019-08 No [id number] 3{packe Take 3 Univers 3.4 gram 0-08 [...] Medi mariusz (8 %) IV 05/29/20 at [facility] Piggyback 4 0730, g Routine magnesium 2019- 2020- No 2g 2 g, IV Univ ers sulfate in 0-05 10-05 Piggyback, it y of water 2 13:30: 13:20 ONCE, 1 [place] gram/50 mL 00 :00 dose, Mon Medi mariusz (4 %) 05/28/20 at [place] infusion 2 0830, g Routine loperamide 2019- [...] on Sun Medical 3.4 gram 05/27/20 at Branc h packet 1 1999, Packet Until Discontinu ed, Routine loperamide 2019-08 2020- No 4mg 4 mg, Unive rs (IMODIUM 0-04 10-05 Oral, TID, ity of A-D) 19:00: 12:56 First dose [place] capsule 4 00 :31 (after Medical mg last Branch modificati on) on 05/27/20 at 1400, Until Discontinu ed, Routine magnesium 2019- 2020- No 2g 2 g, IV Univ ers sulfate in 0-12 01-04 Piggyback, it y of water 2 13:00: [...] ONCE, 1 [place] BULK-100 00 :00 dose, Wed Medica l mL) 05/23/20 at [place] injection 1015, 100 mL Routine docusate 2019- [...] dose on Medica l mg [facility] Branch 05/22/20 at 2330, Until Discontinu ed, JOÃO
Re ason for Anti-Infec tive: Documented Infection< br>Documen dain Infection Site: Abdominal< br>Duratio n of Therapy: 7 days ondansetron 2020-0 Yes 4mg 4 mg, Slow Univers (ZOFRAN - IV Push, ity of (PF)) 03:15: Administer [place] injection 4 50 over 15 Medic al mg Minutes, Branch Q8HPRN, Starting [facility] 05/22/20 at 2215, Until Discontinu ed, Routine, Nausea and Vomiting (N/V) D5W 0.45% 2020-0 Yes IV Univers NaCl 05-23 Infusion, ity of (1/2NS) 1 L 03:15: at 50 [place] + KCL 20 00 mL/hr, Medical mEq CONTINUOUS Branch , Starting [facility] 05/22/20 at 2230, Until Discontinu ed, Routine ibuprofen 2020-0 Yes 800mg 800 mg, Univ ers (IBU) 05-23 Oral, ity of tablet 800 03:13: Q6HPRN, [place] mg 38 Starting Medical [facility] Branch 05/22/20 at 2213, Until Discontinu ed, Routine, Pain (scale 4-6) acetaminoph 2020-0 Yes 650mg 650 mg, Un piyush en 05-23 Oral, ity of (TYLENOL) 03:13: Q6HPRN, [place] tablet 650 36 [address] [facility] 05/22/20 at 2213, Until Discontinu ed, Routine, Pain (scale 1-3) morpHINE 2020-0 2020- No 4mg 4 mg, Slow Un piyush injection 4 05-22 IV Push, ity of mg 03:30: 03:13 ONCE, 1 [place] 00 :00 dose, [facility] Medical 05/21/20 at Branch 2230, STAT piperacilli [...] mg 05/19/20 at Branch 2245, JOÃO morpHINE 2019- No 4mg 4 mg, Slow Un piyush injection 4 05-20 IV Push, ity of mg 03:45: 03:36 ONCE, 1 [place] 00 :00 dose, Sat Medical 05/19/20 at Branch 2245, STAT NaCl 0.9% 2020- No 1000mL at 999 Uni vers (NS) bolus 05-20 mL/hr, ity of infusion 03:45: 11:13 1,000 mL, [place] 1,000 mL 00 :00 IV Medical Piggyback, [place] ONCE, 1 dose, 05/19/20 at 2245, STAT ibuprofen 2019-0 Yes [id number] 800mg Take 1 U nivers 800 mg 9-18 tablet by ity of tablet 00:00: mouth [place] 00 every 6 Medical (six) Branch hours as needed for Pain (scale 4-6). levoFLOXaci 2020-0 Yes [id number] 750mg Take 1 Univers n 750 mg 9-18 tablet by ity of tablet 00:00: mouth [place] 00 every 24 Medical (twenty-fo Branch ur) hours. loperamide 2019-0 Yes [id number] 2mg Take 1 U nivers 2 mg 9-18 capsule by ity of capsule 00:00: mouth [place] 00 daily. Medical Branch ibuprofen 2020-0 Yes [id number] 800mg Take 1 U nivers 800 mg 9-18 tablet by ity of tablet 00:00: mouth [place] 00 every 6 Medical (six) Branch hours as needed for Pain (scale 4-6). levoFLOXaci 2020-0 Yes [id number] 750mg Take 1 [facility] n 750 mg 9-18 tablet by ity of tablet 00:00: mouth [place] 00 every 24 Medical (twenty-fo Branch ur) hours. loperamide 2020-0 Yes [id number] 2mg Take 1 U nivers 2 mg 9-18 capsule by ity of capsule 00:00: mouth [place] 00 daily. Medical Branch ibuprofen 2020-0 Yes [id number] 800mg Take 1 U nivers 800 mg 9-18 tablet by ity of tablet 00:00: mouth [place] 00 every 6 Medical (six) Branch hours as needed for Pain (scale 4-6). levoFLOXaci 2020-0 Yes [id number] 750mg Take 1 Univers n 750 mg 9-18 tablet by ity of tablet 00:00: mouth [place] 00 every 24 Medical (twenty-fo Branch ur) hours. loperamide 2020-0 Yes [id number] 2mg Take 1 U nivers 2 mg 9-18 capsule by ity of capsule 00:00: mouth [place] 00 daily. Medical Branch ibuprofen 2020-0 Yes [id number] 800mg Take 1 U nivers 800 mg 9-18 tablet by ity of tablet 00:00: mouth [place] 00 every 6 Medical (six) Branch hours as needed for Pain (scale 4-6). levoFLOXaci 2020-0 Yes [id number] 750mg Take 1 [facility] n 750 mg 9-18 tablet by ity of tablet 00:00: mouth [place] 00 every 24 Medical (twenty-fo Branch ur) hours. loperamide 2020-0 Yes [id number] 2mg Take 1 U nivers 2 mg 9-18 capsule by ity of capsule 00:00: mouth [place] 00 daily. Medical Branch ibuprofen 2020-0 Yes [id number] 800mg Take 1 U nivers 800 mg 9-18 tablet by ity of tablet 00:00: mouth [place] 00 every 6 Medical (six) Branch hours as needed for Pain (scale 4-6). levoFLOXaci 2020-0 Yes [id number] 750mg Take 1 Univers n 750 mg 9-18 tablet by ity of tablet 00:00: mouth [place] 00 every 24 Medical (twenty-fo Branch ur) hours. loperamide 2020-0 Yes [id number] 2mg Take 1 U nivers 2 mg 9-18 capsule by ity of capsule 00:00: mouth [place] 00 daily. Medical Branch ibuprofen 2020-0 Yes [id number] 800mg Take 1 U nivers 800 mg 9-18 tablet by ity of tablet 00:00: mouth [place] 00 every 6 Medical (six) Branch hours as needed for Pain (scale 4-6). levoFLOXaci 2020-0 Yes [id number] 750mg Take 1 Univers n 750 mg 9-18 tablet by ity of tablet 00:00: mouth [place] 00 every 24 Medical (twenty-fo Branch ur) hours. loperamide 2020-0 Yes [id number] 2mg Take 1 U nivers 2 mg 9-18 capsule by ity of capsule 00:00: mouth [place] 00 daily. Medical Branch ibuprofen 2020-0 Yes [id number] 800mg Take 1 U nivers 800 mg 9-18 tablet by ity of tablet 00:00: mouth [place] 00 every 6 Medical (six) Branch hours as needed for Pain (scale 4-6). levoFLOXaci 2020-0 Yes [id number] 750mg Take 1 Univers n 750 mg 9-18 tablet by ity of tablet 00:00: mouth [place] 00 every 24 Medical (twenty-fo Branch ur) hours. loperamide 2020-0 Yes [id number] 2mg Take 1 U nivers 2 mg 9-18 capsule by ity of capsule 00:00: mouth [place] 00 daily. Medical Branch ibuprofen 2020-0 Yes [id number] 800mg Take 1 U nivers 800 mg 9-18 tablet by ity of tablet 00:00: mouth [place] 00 every 6 Medical (six) Branch hours as needed for Pain (scale 4-6). levoFLOXaci 2020-0 Yes [id number] 750mg Take 1 Univers n 750 mg 9-18 tablet by ity of tablet 00:00: mouth [place] 00 every 24 Medical (twenty-fo Branch ur) hours. loperamide 2020-0 Yes [id number] 2mg Take 1 U nivers 2 mg 9-18 capsule by ity of capsule 00:00: mouth [place] 00 daily. Medical Branch ibuprofen 2020-0 Yes [id number] 800mg Take 1 U nivers 800 mg 9-18 tablet by ity of tablet 00:00: mouth [place] 00 every 6 Medical (six) Branch hours as needed for Pain (scale 4-6). levoFLOXaci 2020-0 Yes [id number] 750mg Take 1 [facility] n 750 mg 9-18 tablet by ity of tablet 00:00: mouth [place] 00 every 24 Medical (twenty-fo Branch ur) hours. loperamide 2020-0 Yes [id number] 2mg Take 1 U nivers 2 mg 9-18 capsule by ity of capsule 00:00: mouth [place] 00 daily. Medical Branch ibuprofen 2020-0 Yes [id number] 800mg Take 1 U nivers 800 mg 9-18 tablet by ity of tablet 00:00: mouth [place] 00 every 6 Medical (six) Branch hours as needed for Pain (scale 4-6). levoFLOXaci 2020-0 Yes [id number] 750mg Take 1 Univers n 750 mg 9-18 tablet by ity of tablet 00:00: mouth [place] 00 every 24 Medical (twenty-fo Branch ur) hours. loperamide 2020-0 Yes [id number] 2mg Take 1 U nivers 2 mg 9-18 capsule by ity of capsule 00:00: mouth [place] 00 daily. Medical Branch ibuprofen 2020-0 Yes [id number] 800mg Take 1 U nivers 800 mg 9-18 tablet by ity of tablet 00:00: mouth [place] 00 every 6 Medical (six) Branch hours as needed for Pain (scale 4-6). levoFLOXaci 2020-0 Yes [id number] 750mg Take 1 Univers n 750 mg 9-18 tablet by ity of tablet 00:00: mouth [place] 00 every 24 Medical (twenty-fo Branch ur) hours. loperamide 2020-0 Yes [id number] 2mg Take 1 U nivers 2 mg 9-18 capsule by ity of capsule 00:00: mouth [place] 00 daily. Medical Branch ibuprofen 2020-0 Yes [id number] 800mg Take 1 U nivers 800 mg 9-18 tablet by ity of tablet 00:00: mouth [place] 00 every 6 Medical (six) Branch hours as needed for Pain (scale 4-6). levoFLOXaci 2020-0 Yes [id number] 750mg Take 1 Univers n 750 mg 9-18 tablet by ity of tablet 00:00: mouth [place] 00 every 24 Medical (twenty-fo Branch ur) hours. loperamide 2020-0 Yes [id number] 2mg Take 1 U nivers 2 mg 9-18 capsule by ity of capsule 00:00: mouth [place] 00 daily. Medical Branch ibuprofen 2020-0 Yes [id number] 800mg Take 1 U nivers 800 mg 9-18 tablet by ity of tablet 00:00: mouth [place] 00 every 6 Medical (six) Branch hours as needed for Pain (scale 4-6). levoFLOXaci 2019-0 Yes [id number] 750mg Take 1 Univers n 750 mg 9-18 tablet by ity of tablet 00:00: mouth [place] 00 every 24 Medical (twenty-fo Branch ur) hours. loperamide 2019-0 Yes [id number] 2mg Take 1 U nivers 2 mg 9-18 capsule by ity of capsule 00:00: mouth [place] 00 daily. Medical Branch acetaminoph 2020- No [id number] 650mg Take 2 [facility] en 325 mg 9-18 09-19 tablets by ity of tablet 00:00: 04:59 mouth [place] 00 :00 every 6 Medical (six) Branch hours as needed for Pain (scale 1-3). acetaminoph 2020- No [id number] 650mg Take 2 [facility] en 325 mg 9-18 09-19 tablets by ity of tablet 00:00: 04:59 mouth [place] 00 :00 every 6 Medical (six) Branch hours as needed for Pain (scale 1-3). acetaminoph 2020- No [id number] 650mg Take 2 [facility] en 325 mg 9-18 09-19 tablets by ity of tablet 00:00: 04:59 mouth [place] 00 :00 every 6 Medical (six) Branch hours as needed for Pain (scale 1-3). acetaminoph 2020- No [id number] 650mg Take 2 [facility] en 325 mg 9-18 09-19 tablets by ity of tablet 00:00: 04:59 mouth [place] 00 :00 every 6 Medical (six) Branch hours as needed for Pain (scale 1-3). acetaminoph 2020- No [id number] 650mg Take 2 [facility] en 325 mg 9-18 09-19 tablets by ity of tablet 00:00: 04:59 mouth [place] 00 :00 every 6 Medical (six) Branch hours as needed for Pain (scale 1-3). acetaminoph 2020- No [id number] 650mg Take 2 [facility] en 325 mg 9-18 09-19 tablets by ity of tablet 00:00: 04:59 mouth [place] 00 :00 every 6 Medical (six) Branch hours as needed for Pain (scale 1-3). acetaminoph No [id number] 650mg Take 2 [facility] en 325 mg 9-18 09-19 tablets by ity of tablet 00:00: 04:59 mouth [place] 00 :00 every 6 Medical (six) Branch hours as needed for Pain (scale 1-3). acetaminoph No [id number] 650mg Take 2 [facility] en 325 mg 9-18 09-19 tablets by ity of tablet 00:00: 04:59 mouth [place] 00 :00 every 6 Medical (six) Branch hours as needed for Pain (scale 1-3). acetaminoph No [id number] 650mg Take 2 [facility] en 325 mg 9-18 09-19 tablets by ity of tablet 00:00: 04:59 mouth [place] 00 :00 every 6 Medical (six) Branch hours as needed for Pain (scale 1-3). acetaminoph No [id number] 650mg Take 2 [facility] en 325 mg 9-18 09-19 tablets by ity of tablet 00:00: 04:59 mouth [place] 00 :00 every 6 Medical (six) Branch hours as needed for Pain (scale 1-3). acetaminoph No [id number] 650mg Take 2 [facility] en 325 mg 9-18 09-19 tablets by ity of tablet 00:00: 04:59 mouth [place] 00 :00 every 6 Medical (six) Branch hours as needed for Pain (scale 1-3). acetaminoph No [id number] 650mg Take 2 [facility] en 325 mg 9-18 09-19 tablets by ity of tablet 00:00: 04:59 mouth [place] 00 :00 every 6 Medical (six) Branch hours as needed for Pain (scale 1-3). acetaminoph No [id number] 650mg Take 2 [facility] en 325 mg 9-18 09-19 tablets by ity of tablet 00:00: 04:59 mouth [place] 00 :00 every 6 Medical (six) Branch hours as needed for Pain (scale 1-3). acetaminoph No [id number] 650mg Take 2 [facility] en 325 mg 9-18 10-08 tablets by ity of tablet 00:00: 00:00 mouth [place] 00 :00 every 6 Medical (six) Branch hours as needed for Pain (scale 1-3). ibuprofen 2019-2019- No [id number] 800mg Take 1 [facility] 800 mg 9-18 10-08 tablet by ity of tablet 00:00: 00:00 mouth [place] 00 :00 every 6 Medical (six) Branch hours as needed for Pain (scale 4-6). levoFLOXaci 2019-2019- No [id number] 750mg Take 1 Univers n 750 mg 9-18 10-08 tablet by ity o f tablet 00:00: 00:00 mouth [place] 00 :00 every 24 Medical (twenty-fo Branch ur) hours. loperamide 2019- No [id number] 2mg Take 1 Univers 2 mg 9-18 [...] No 1000mL at 999 [facility] ers ringers IV 05-07 mL/hr, ity of infusion 22:15: 22:21 1,000 mL, [place] as 1,000 mL 00 :00 Intravenou Medic al s, ONCE, 1 Branch dose, [facility] 05/07/20 at 1715, Routine lactated 2020-0 2020- No 1000mL at 999 [facility] ers ringers IV 05-07 mL/hr, ity of infusion 13:15: 14:09 1,000 mL, [place] as 1,000 mL 00 :00 Intravenou Medic al s, ONCE, 1 Branch dose, [facility] 05/07/20 at 0815, Routine HYDROcodone 2020-0 Yes 1{tbl} 1 tablet, Univers -acetaminop 05-07 Oral, ity of hen (NORCO 13:00: Q6HPRN, [place] 5) 5-325 mg 00 Starting Medi mariusz tablet 1 Mon [place] tablet 05/07/20 at 0800, Until Discontinu ed, Routine, Pain (scale 4-6) magnesium 2019-0 2020- No 2g 2 g, IV [facility] ers sulfate in 05-07 Piggyback, it y of water 2 13:00: 15:10 ONCE, 1 [place] gram/50 mL 00 :00 dose, Mon Medi mariusz (4 %) 05/07/20 at [place] infusion 2 0800, g Routine ibuprofen 2020-0 Yes 800mg 800 mg, [facility] ers (IBU) 05-07 Oral, ity of tablet 800 12:45: Q6HPRN, [place] mg 22 Starting Medical [facility] 05/07/20 at 0745, Until Discontinu ed, Routine, Pain (scale 4-6) FENTanyl PF 2020-0 2020- No Slow IV Un piyush (SUBLIMAZE 05-05 Push, PRN, it y of (PF)) 18:53: 20:05 Starting [place] injection 39 :03 [facility] Medical 05/05/20 at Branch 1353, Until Discontinu ed, Routine lidocaine 2019-0 2020- No PRN, Univers 1% (PF) 9-12 09-12 Starting ity of (XYLOCAINE) 18:26: 18:26 Sat [place] injection 34 :34 05/05/20 at [facility] mariusz 1326, Branch Until Discontinu [...] First dose Medica l I.V.) RTU on [facility] IV infusion 05/05/20 at 500 mg 0230, [...] 06:14 Q4HPRN, [place] 31 :31 Starting Medical [facility] Branch 05/05/20 at 0115, Until 05/07/20 at [...] Indication s: acute pain ibuprofen 2020-0 Yes [id number] 400mg Take 2 Univers 200 mg 9-08 tablets by ity of tablet 00:00: mouth [place] 00 every 6 Medical (six) Branch hours as needed for Pain (scale 1-3). ibuprofen 2020-0 Yes [id number] 400mg Take 2 [facility] 200 mg 9-08 tablets by ity of tablet 00:00: mouth [place] 00 every 6 Medical (six) Branch hours as needed for Pain (scale 1-3). ibuprofen 2020-0 Yes [id number] 400mg Take 2 [facility] 200 mg 9-08 tablets by ity of tablet 00:00: mouth [place] 00 every 6 Medical (six) Branch hours as needed for Pain (scale 1-3). ibuprofen 2020-0 Yes [id number] 400mg Take 2 Univers 200 mg 9-08 tablets by ity of tablet 00:00: mouth [place] 00 every 6 Medical (six) Branch hours as needed for Pain (scale 1-3). ibuprofen 2020-0 Yes [id number] 400mg Take 2 Univers 200 mg 9-08 tablets by ity of tablet 00:00: mouth [place] 00 every 6 Medical (six) Branch hours as needed for Pain (scale 1-3). ibuprofen 2020-0 Yes [id number] 400mg Take 2 [facility] 200 mg 9-08 tablets by ity of tablet 00:00: mouth [place] 00 every 6 Medical (six) Branch hours as needed for Pain (scale 1-3). ibuprofen 2020-0 Yes [id number] 400mg Take 2 [facility] 200 mg 9-08 tablets by ity of tablet 00:00: mouth [place] 00 every 6 Medical (six) Branch hours as needed for Pain (scale 1-3). acetaminoph 2020- No [id number] 650mg Take 2 [facility] en 05-01 tablets by ity of (TYLENOL) 00:00: 04:59 mouth [place] 325 mg 00 :00 every 6 Medical tablet (six) Branch hours as needed for Pain (scale 4-6). acetaminoph 2020- No [id number] 650mg Take 2 Univers en 05-01 tablets by ity of (TYLENOL) 00:00: 04:59 mouth [place] 325 mg 00 :00 every 6 Medical tablet (six) Branch hours as needed for Pain (scale 4-6). acetaminoph 2020- No [id number] 650mg Take 2 Univers en 05-01 tablets by ity of (TYLENOL) 00:00: 04:59 mouth [place] 325 mg 00 :00 every 6 Medical tablet (six) Branch hours as needed for Pain (scale 4-6). acetaminoph 2020- No [id number] 650mg Take 2 Univers en 05-01 tablets by ity of (TYLENOL) 00:00: 04:59 mouth [place] 325 mg 00 :00 every 6 Medical tablet (six) Branch hours as needed for Pain (scale 4-6). acetaminoph 2020- No [id number] 650mg Take 2 Univers en 05-01 tablets by ity of (TYLENOL) 00:00: 04:59 mouth [place] 325 mg 00 :00 every 6 Medical tablet (six) Branch hours as needed for Pain (scale 4-6). acetaminoph 2020- No [id number] 650mg Take 2 Univers en 05-01 tablets by ity of (TYLENOL) 00:00: 04:59 mouth [place] 325 mg 00 :00 every 6 Medical tablet (six) Branch hours as needed for Pain (scale 4-6). acetaminoph 2020- No [id number] 650mg Take 2 Univers en 05-01 tablets by ity of (TYLENOL) 00:00: 04:59 mouth [place] 325 mg 00 :00 every 6 Medical tablet (six) Branch hours as needed for Pain (scale 4-6). ciprofloxac 2019- No [id number] 750mg Take 1 Univers in HCl 750 05-01 tablet by ity of mg tablet 00:00: 04:59 mouth [place] 00 :00 every 12 Medical (twelve) Branch hours for 14 days. amoxicillin 2019- No [id number] 1{tbl} Take 1 Univers -clavulanat 05-01 tablet by it y of e 00:00: 04:59 mouth 2 [place] (AUGMENTIN) 00 :00 (two) Medical 875-125 mg times Branch per tablet daily for 14 days. ciprofloxac 2019-2019- No [id number] 750mg Take 1 Univers in HCl 750 05-01 tablet by ity of mg tablet 00:00: 04:59 mouth [place] 00 :00 every 12 Medical (twelve) Branch hours for 14 days. amoxicillin 2019-2019- No [id number] 1{tbl} Take 1 Univers -clavulanat 05-01 tablet by it y of e 00:00: 04:59 mouth 2 [place] (AUGMENTIN) 00 :00 (two) Medical 875-125 mg times Branch per tablet daily for 14 days. ciprofloxac 2019-2019- No [id number] 750mg Take 1 Univers in HCl 750 05-01 tablet by ity of mg tablet 00:00: 04:59 mouth [place] 00 :00 every 12 Medical (twelve) Branch hours for 14 days. amoxicillin 2019- No [id number] 1{tbl} Take 1 Univers -clavulanat 05-01 tablet by it y of e 00:00: 04:59 mouth 2 [place] (AUGMENTIN) 00 :00 (two) Medical 875-125 mg times Branch per tablet daily for 14 days. ciprofloxac 2019-2019- No [id number] 750mg Take 1 Univers in HCl 750 05-01 tablet by ity of mg tablet 00:00: 04:59 mouth [place] 00 :00 every 12 Medical (twelve) Branch hours for 14 days. amoxicillin 2019- No [id number] 1{tbl} Take 1 Univers -clavulanat 05-01 tablet by it y of e 00:00: 04:59 mouth 2 [place] (AUGMENTIN) 00 :00 (two) Medical 875-125 mg times Branch per tablet daily for 14 days. ciprofloxac 2019- 2020- No [id number] 750mg Take 1 Univers in HCl 750 05-01 tablet by ity of mg tablet 00:00: 04:59 mouth [place] 00 :00 every 12 Medical (twelve) Branch hours for 14 days. amoxicillin 2019- 2020- No [id number] 1{tbl} Take 1 Univers -clavulanat 05-01 tablet by it y of e 00:00: 04:59 mouth 2 [place] (AUGMENTIN) 00 :00 (two) Medical 875-125 mg times Branch per tablet daily for 14 days. ciprofloxac 2019-2019- No [id number] 750mg Take 1 Univers in HCl 750 05-01 tablet by ity of mg tablet 00:00: 04:59 mouth [place] 00 :00 every 12 Medical (twelve) Branch hours for 14 days. amoxicillin 2019-2019- No [id number] 1{tbl} Take 1 Univers -clavulanat 05-01 tablet by it y of e 00:00: 04:59 mouth 2 [place] (AUGMENTIN) 00 :00 (two) Medical 875-125 mg times Branch per tablet daily for 14 days. ciprofloxac 2019- 2020- No [id number] 750mg Take 1 Univers in HCl 750 05-01 tablet by ity of mg tablet 00:00: 04:59 mouth [place] 00 :00 every 12 Medical (twelve) Branch hours for 14 days. amoxicillin 2019- 2020- No [id number] 1{tbl} Take 1 Univers -clavulanat 05-01 tablet by it y of e 00:00: 04:59 mouth 2 [place] (AUGMENTIN) 00 :00 (two) Medical 875-125 mg times Branch per tablet daily for 14 days. acetaminoph 2019- 2020- No [id number] 650mg Take 2 Univers en 05-01 tablets by ity of (TYLENOL) 00:00: 00:00 mouth [place] 325 mg 00 :00 every 6 Medical tablet (six) Branch hours as needed for Pain (scale 4-6). ibuprofen 2019- 2020- No [id number] 400mg Take 2 Univers 200 mg 05-01 tablets by ity of tablet 00:00: 00:00 mouth [place] 00 :00 every 6 Medical (six) Branch hours as needed for Pain (scale 1-3). ciprofloxac 2020-0 2020- No [id number] 750mg Take 1 Univers in HCl 750 05-01 tablet by ity of mg tablet 00:00: 00:00 mouth [place] 00 :00 every 12 Medical (twelve) Branch hours for 14 days. amoxicillin 2020-0 2020- No [id number] 1{tbl} Take 1 Univers -clavulanat 05-01 tablet [...] 1 dose, 04/23/20 at 1130, STAT micafungin 2019- No 100mg 100 mg, IV Univers (MYCAMINE) 04-22 Piggyback, it y of 100 mg in 13:00: 15:59 Q24H ABX, [place] NaCl 0.9% 00 :00 1 dose, Medical (NS) 100 mL First dose Br anch MINI-BAG (after last reorder) on [place] 04/22/20 at 0800, 100 mL
Rest ricted use approved by: [employer]< br>Reason for Anti-Infec tive: Documented Infection< br>Documen dain Infection Site: Abdominal< br>Duratio n of Therapy: 7 days ciprofloxac Yes 750mg 750 mg, Un piyush in HCl 04-21 Oral, ity of (CIPRO) 23:00: Q12HA2, [place] tablet 750 00 First dose Med ical mg on [facility] 04/21/20 at 1800, Until Discontinu ed, JOÃO
Re ason for Anti-Infec tive: Documented Infection< br>Documen dain Infection Site: Abdominal< br>Duratio n of Therapy: 7 days aspirin 2019-0 Yes 81mg 81 mg, Univers chewable 04-21 Oral, ity of tablet 81 14:00: DAILY, [place] mg 00 First dose Medical on [facility] 04/21/20 at 0900, Until Discontinu ed, Routine multivitami 2019-0 Yes 1{tbl} 1 tablet, Univers n tablet 1 04-21 Oral, ity of tablet 14:00: DAILY, [place] 00 First dose Medical on Sat Branch 04/21/20 at 0900, Until Discontinu ed, Routine amoxicillin 2019- No 500mg 500 mg, U nivers -pot 04-21 Oral, TID, ity of clavulanate 13:00: 14:44 First dose [place] 500 mg 00 :32 on [facility] Medical (AUGMENTIN 04/21/20 at [facility] 500) 0800, 500-125 mg Until tablet 500 [...] 04-19 Oral, ity of (PROTONIX) 14:00: DAILY, [place] EC tablet 00 First dose [...] Q6HPRN, [place] mg 09 :33 Starting [facility] 04/17/20 at 1211, Until Thu04/20/20 at 1031, Routine, Pain (scale 4-6), Pain (scale 7-10) aspirin 2019-2019- No 325mg 325 mg, Unive rs tablet 325 04-17 Oral, ity of mg 14:00: 15:33 DAILY, [place] 00 :03 First dose Medical on [facility] 04/17/20 at 0900, Until Discontinu ed, Routine lidocaine 2020- No PRN, Univers 1% (PF) 04-16 Starting ity of (XYLOCAINE) 21:17: 21:17 [facility] injection 53 :53 04/16/20 at [facility] 1617, Branch Until [facility] 04/16/20 at 1617, Routine FENTanyl PF 2020- No Slow IV Un piyush (SUBLIMAZE 04-16 Push, PRN, it y of (PF)) 21:16: 21:16 Starting [place] injection 07 :07 [facility] 04/16/20 at Branch 1616, Until [facility] 04/16/20 at 1616, Routine midazolam 2019- 2020- No IV Push, Uni vers (VERSED) 04-16 PRN, ity of injection 21:16: 21:16 Starting [place] 07 :07 [facility] 04/16/20 at Branch 1616, Until [facility] 04/16/20 at 1616, Routine piperacilli 2019- No [...] br>Duratio n of Therapy: 7 days iohexol 2019-2019- No 120mL 120 mL, Unive rs (OMNIPAQUE [...] Until Thu04/18/20 at 0950, Routine FENTanyl PF 2020- No 25ug 25 mcg, Un piyush (SUBLIMAZE [...] Hospital 04/12/20 at 1999, Last dose on [place] 04/15/20 at 1999, 100 mL
Reas on [...] 1645, Until 04/14/20 at 0601, Routine iohexol 2020- No 100mL 100 mL, Unive rs (OMNIPAQUE 04-12 Intravenou it y of 350 21:30: 21:30 s, ONCE, 1 [place] BULK-100 00 :00 dose, [place] [facility] mL) 04/12/20 at Branch injection 1630, 100 mL Routine piperacilli 2019- 2020- No 3.375g 3.375 [...] in 06 :54 Starting Medica l lactated [facility] Branch ringers 04/11/20 at 1,000 mL [...] Thu Medi mariusz (4 %) 04/11/20 at [place] infusion 2 0645, g Routine Total 2019- [...] :33 First dose Medi mariusz (NS) on [facility] piggyback 04/10/20 at 0100, Until Discontinu ed, 100 mL
R mitali for Anti-Infec tive: Documented Infection< br>Documen dain Infection Site: Abdominal< br>Duratio n of Therapy: 7 days
Re stricted use approved by: [employer] ibuprofen 2019- No 600mg 600 mg, Uni vers (IBU) 04-10 Oral, Q8H, ity of tablet 600 03:00: 10:59 First dose [place] mg 00 :06 on [facility] Medical 04/09/20 at Branch 2200, Until Discontinu ed, Routine micafungin 2019- No 100mg 100 mg, IV Univers (MYCAMINE) 04-10 Piggyback, it y of 100 mg in 02:45: 15:57 Q24H ABX, [place] NaCl 0.9% 00 :33 First dose Medi mariusz (NS) 100 mL on [facility] MINI-BAG 04/09/20 at 2145, Until Discontinu ed, 100 mL
R estricted use approved by: [employer]< br>Reason for Anti-Infec tive: Documented [...] [place] tablet 500 00 :23 on [facility] Medical mg 04/09/20 at Branch 1800, Until [...] 20 :43 Starting Medica l lactated [facility] ringers 04/09/20 at 1,000 mL 1243, infusion [...] Routine
Indicatio n: Perioperat ector Patient sodium 2019-2019- No Topical, Univer s hypochlorit 04-09 BID, First i ty of e 0.025% 13:00: 14:50 dose on [place] ([facility]) 00 :18 Mon Medical solution 04/09/20 at [facility] h 0800, Until Discontinu ed, Routine magnesium 2019- No 2g 2 g, IV Univ ers [...] on) on Thu04/08/20 at 1700 acetaminoph 2019- No 1000mg 1,000 [...] doses, First dose (after last reorder) on [facility] 04/07/20 at 1800, Last dose on [place] 04/08/20 at 1200, Routine
Indicatio n: Perioperat ector Patient D5W-LR IV 2020-0 2020- No 1000mL at 60 Univ ers infusion 04-07 08-16 mL/hr, IV ity o f 1,000 mL 22:45: 15:29 Infusion, [place] 00 :52 CONTINUOUS Medical , Starting Branch [facility] 04/07/20 at 1745, Until [place] 04/08/20 at 1029, Routine Total 2020-0 2020- No at 85 Univers Parenteral 04-07 08-16 mL/hr, ity of Nutrition 22:00: 22:05 2,040 mL, [place] 00 :00 TPNCONTINU Medical OUS, 1 Branch dose, First dose on [facility] 04/07/20 at 1700 fluconazole 2019- 2020- No 400mg at 100 Un piyush (DIFLUCAN) 04-07 08-18 mL/hr, IV ity of IV 20:00: 01:35 Piggyback, [place] Piggyback 00 :07 Q24H ABX, Medic al 400 mg First dose Branch on [facility] 04/07/20 at 1500, Until Discontinu ed, JOÃO multivitami 2019- 2020- No 15mL 15 mL, Uni vers n (CENTRUM) 04-07 08-28 Enteral, ity of solution 15 14:00: 15:31 DAILY, [place] mL 00 :33 First dose Medical (after Branch last modificati on) on [facility] 04/07/20 at 0900, Until Discontinu ed, Routine heparin 2019- 2020- No 5000U 5,000 Univers (porcine) 04-07 08-19 Units, ity of injection 11:00: 11:53 Subcutaneo [place] 5,000 Units 00 :30 us, Q8H, Medi mariusz First dose Branch on [facility] 04/07/20 at 0600, Until Discontinu ed, Routine D5W-LR IV 2019-0 2020- No 1000mL at 150 Uni vers infusion 04-07 08-15 mL/hr, IV ity o f 1,000 mL 08:45: 22:41 Infusion, [place] 00 :18 CONTINUOUS Medical , Starting Branch 04/07/20 at 0345, Until 04/07/20 at 1741, Routine D5W-LR IV 2019- 2020- No 1000mL at 200 Uni vers infusion 04-0715 mL/hr, IV ity o f 1,000 mL [...] Routine
Indicatio n: Perioperat ector Patient albumin 2019-2019- No 25g 25 g, IV Unive rs [...] .05ug/k 0.05-1.5 Univers ine 4 mg in 04-06-17 g/min mcg/kg/min ity of D5W 250 mL [...] Medical Fri Branch 04/06/20 at 1146, Until [place] 04/08/20 at 0923, Routine, Agitation, Sedation lactated [...] 00 :35 Fri Medical injection 04/06/20 at [facility] 1110, Until Thu04/06/20 at 1129, Routine, Intra-op sodium 2020-0 2020- No ONCE INTRA Univ ers bicarbonate 04-06 PROCEDURE, i ty of 8.4 % (1 16:10: 16:29 [place] mEq/mL) 00 :35 Fri Medical injection 04/06/20 at [facility] 1110, Until Thu04/06/20 at 1129, Routine, [...] Fri Medical infusion 04/06/20 at [facility] 1029, Until Thu04/06/20 at 1129, Routine, Intra-op EPINEPHrine 2020-0 2020- No CONTINUOUS Univers 1 mg in 04-06 PRN, ity of NaCl 0.9% 15:29: 16:29 Starting [place] (NS) 00 :35 Fri Medical infusion 04/06/20 at [facility] 1029, Until Thu04/06/20 at 1129, Routine, Intra-op piperacilli 2020-0 2020- No CONTINUOUS Univers n-tazobacta 04-06 PRN, ity of m (ZOSYN) 14:57: 16:29 Starting [place] 3.375 g in 00 :35 Fri Medical NaCl 0.9% 04/06/20 at [facility] (NS) 100 mL 0957, infusion Until Discontinu ed, 100 mL, Intra-op piperacilli 2020-0 2020- No CONTINUOUS Univers n-tazobacta 04-06 PRN, ity of m (ZOSYN) 14:57: 16:29 Starting [place] 3.375 g in 00 :35 Fri Medical NaCl 0.9% 04/06/20 at [facility] (NS) 100 mL 0957, infusion Until Discontinu ed, 100 mL, Intra-op EPINEPHrine 2020-0 2020- No ONCE INTRA Univers 1:1,000 (1 04-06 PROCEDURE, it y of mg/mL) 14:54: 16:29 Starting [place] (ADRENALIN) 00 :35 Fri Medical injection 04/06/20 at [facility] 0954, Until Discontinu ed, Routine, Intra-op EPINEPHrine 2020-0 2020- No ONCE INTRA Univers 1:1,000 (1 04-06 PROCEDURE, it y of mg/mL) 14:54: 16:29 Starting [place] (ADRENALIN) 00 :35 Fri Medical injection 04/06/20 at [facility] 0954, Until Discontinu ed, Routine, Intra-op NORepinephr 2020-0 2020- No CONTINUOUS Univers ine 04-06 PRN, ity of (LEVOPHED) 14:39: 16:29 [place] 4 mg in 00 :35 Fri Medical NaCl 0.9% 04/06/20 at [facility] (NS) 250 mL 0939, infusion Intra-op NORepinephr 2020-0 2020- No CONTINUOUS Univers ine 04-06 PRN, ity of (LEVOPHED) 14:39: 16:29 [place] 4 mg in 00 :35 Fri Medical NaCl 0.9% 04/06/20 at [facility] (NS) 250 mL 0939, infusion Intra-op [...] Until Thu04/06/20 at 1129, Routine, Intra-op succinylcho 2019- 2020- No IV Push, U nivers line 04-06 ONCE INTRA ity of (QUELICIN) 14:15: 16:29 PROCEDURE, [place] injection 00 :35 Starting Medica l Fri Branch 04/06/20 at 0915, Until Thu04/06/20 at 1129, Routine, Intra-op propofol IV 2019-0 2020- No ONCE INTRA Univers infusion 04-06 PROCEDURE, ity of 14:15: 16:29 Starting [place] 00 :35 [facility] Medical 04/06/20 at Branch 0915, Until Thu04/06/20 at 1129, Routine, Intra-op lidocaine 2019-0 2020- No ONCE INTRA U nivers 1% 04-06 PROCEDURE, ity of (XYLOCAINE) 14:15: 16:29 [place] 100 mg/10 00 :35 Fri Medical mL (1 %) 04/06/20 at [facility] h injection 0915, Until Thu04/06/20 at [...] of 14:15: 16:29 Starting [place] 00 :35 [facility] Medical 04/06/20 at Branch 0915, Until Thu04/06/20 at 1129, Routine, Intra-op lidocaine 2020-0 2020- No ONCE INTRA U nivers 1% 04-06 PROCEDURE, ity of (XYLOCAINE) 14:15: 16:29 [place] 100 mg/10 00 :35 [facility] Medical mL (1 %) 04/06/20 at [facility] h injection 0915, Until Thu04/06/20 at 1129, Routine, Intra-op FENTanyl PF 2020-0 2020- No ONCE INTRA Univers (SUBLIMAZE 04-06 PROCEDURE, it y of (PF)) 14:15: 16:29 Starting [place] injection 00 :35 [facility] 04/06/20 at Branch 0915, Until Thu04/06/20 at 1129, Routine, Intra-op albumin 2020-0 2020- No CONTINUOUS Uni vers (ALBUMINAR- 04-06 PRN, ity of 5) 5 % 14:10: 16:29 Starting [place] injection 00 :35 [facility] 04/06/20 at Branch 0910, Until Discontinu ed, Intra-op lactated 2020-0 2020- No CONTINUOUS Un piyush ringers IV 04-06 PRN, ity of infusion 14:10: 16:29 [place] 00 :35 [facility] 04/06/20 at Branch 0910, Until Discontinu ed, Routine, Intra-op albumin 2020-0 2020- No CONTINUOUS Uni vers (ALBUMINAR- 04-06 PRN, ity of 5) 5 % 14:10: 16:29 Starting [place] injection 00 :35 [facility] 04/06/20 at Branch 0910, Until Discontinu ed, Intra-op lactated 2020-0 2020- No CONTINUOUS Un piyush ringers IV 04-06 PRN, ity of infusion 14:10: 16:29 [place] 00 :35 [facility] Medical 04/06/20 at Branch 0910, Until Discontinu ed, Routine, Intra-op lactated 2020-0 2020- No 1000mL at 999 Univ ers ringers IV 04-06 mL/hr, ity of infusion 12:30: 12:37 1,000 mL, [place] 1,000 mL 00 :00 Intravenou Medic al s, ONCE, 1 Branch dose, Thu04/06/20 at 0730, Routine methocarbam 2019- 2020- No [...] First dose Medic al NaCl 0.9% on [facility] Branch (NS) 100 mL 04/05/20 at MINI-BAG 2000, Until Discontinu ed, 100 mL acetaminoph 2019- 2020- No 1000mg 1,000 mg, [...] Medica l liquid 650 04/05/20 at [place] mg 1200, Until Discontinu ed, Routine methocarbam [...] 1300, Until Thu04/05/20 at 1413, Routine enoxaparin 2020-0 2020- No [...] as mg 00 :00 dose, [facility] Medical 04/03/20 at Branch 0845, Routine
Restricte d use approved by: HELENE MEDELLIN - SURGERY/GE NERAL heparin 2019-0 2020- No 5000U 5,000 Univers (porcine) 04-03 Units, ity of injection 12:00: 12:02 Subcutaneo [place] 5,000 Units 00 :00 us, ONCE, Med ical 1 dose, Branch [facility] 04/03/20 at 0700, Routine gabapentin 0 2020- No 300mg 300 mg, Un piyush (NEURONTIN) 04-03 Oral, ity of 250 mg/5 mL 12:00: 12:02 ONCE, 1 [place] solution 00 :00 dose, Tue Medica l 300 mg 04/03/20 at Branch 0700, Routine D5W 0.45% 2019-0 2020- No IV Univers NaCl 04-02 Infusion, ity of (1/2NS) 1 L 23:30: 17:59 at 125 [place] + KCL 20 00 :42 mL/hr, Medical mEq CONTINUOUS Branch , Starting 04/02/20 at 1830, Until Thu04/04/20 at 1259, Routine NaCl 0.9% 2019-0 2020- No 1000mL at 999 Uni vers (NS) bolus 04-02 0810 mL/hr, ity of infusion 22:45: 21:48 1,000 mL, [place] 1,000 mL 00 :00 IV Medical Piggyback, Branch ONCE, 1 dose, 04/02/20 at 1745, STAT pantoprazol 2019-2019- No 40mg 40 mg, IV Univers e 04-02 Piggyback, ity of (PROTONIX) 00:15: 10:49 Q24H, [place] 40 mg in 00 :10 First dose Medic al NaCl 0.9% on [place] Branch (NS) 100 mL 04/01/20 at MINI-BAG 1915, Until Discontinu ed, 100 mL D5W 0.45% 2019-2019- No IV Univers NaCl 04-02 Infusion, ity of (1/2NS) 1 L 00:15: 23:16 at 150 [place] + KCL 20 00 :16 mL/hr, Medical mEq CONTINUOUS Branch , Starting [place] 04/01/20 at 1915, Until Thu04/02/20 at 1816, Routine acetaminoph 2019- No 650mg 650 mg, U nivers en 04-01 Oral, ity of (TYLENOL) 23:11: 21:31 Q6HPRN, [place] tablet 650 57 :27 Starting Medic al mg [place] 04/01/20 Branch at 1811, Until 04/03/20 at 1631, Routine, Pain (scale 1-3), Pain (scale 4-6) NaCl 0.9% 2019-0 2019- No 1000mL at 999 Uni vers (NS) bolus 04-01 mL/hr, ity of infusion 23:10: 00:18 1,000 mL, [place] 1,000 mL 00 :00 IV Medical Piggyback, Branch ONCE, 1 dose, [place] 04/01/20 at 1815, STAT lactulose 2019-0 2020- No 15mL 15 mL, Unive rs (CEPHULAC) 04-01 Oral, ity of solution 15 16:15: 16:01 ONCE, 1 [place] mL 00 :00 dose, [facility] 04/01/20 at Branch 1115, Routine Polyethylen 2019- 2020- No 17g 17 g, Univ ers e Glycol 8-08 08-09 Oral, BID ity o f 3350 15:45: [...] Thu03/28/20 at 0800, Routine metoclopram 2020-0 Yes [id number] 5mg Take 1 Univers tammi HCl 8-05 tablet by ity of (REGLAN) 5 00:00: mouth [place] mg tablet 00 every 12 Medica l (twelve) Branch hours as needed for Nausea and Vomiting (N/V) (constipat ion). metoclopram 2020-0 Yes [id number] 5mg Take 1 Univers tammi HCl 8-05 tablet by ity of (REGLAN) 5 00:00: mouth [place] mg tablet 00 every 12 Medica l (twelve) Branch hours as needed for Nausea and Vomiting (N/V) (constipat ion). metoclopram 2020-0 Yes [id number] 5mg Take 1 Univers tammi HCl 8-05 tablet by ity of (REGLAN) 5 00:00: mouth [place] mg tablet 00 every 12 Medica l (twelve) Branch hours as needed for Nausea and Vomiting (N/V) (constipat ion). metoclopram 2020-0 Yes [id number] 5mg Take 1 Univers tammi HCl 8-05 tablet by ity of (REGLAN) 5 00:00: mouth [place] mg tablet 00 every 12 Medica l (twelve) Branch hours as needed for Nausea and Vomiting (N/V) (constipat ion). metoclopram 2020-0 2020- No [id number] 5mg Take 1 Univers tammi HCl 8-05 [...] No 1000mg 1,000 mg, Univers en ADULT 03-26-03 IV ity of (OFIRMEV) 05:15: 04:42 Infusion, [place] injection 00 :00 Administer Medi mariusz 1,000 mg over 15 Branch Minutes, ONCE, 1 dose, Thu03/26/20 at 0015, Routine
Indica tion: Perioperat ector Patient metoclopram 2020-0 2020- No 5mg 5 mg, Slow Univers tammi HCl 03-26- IV Push, ity of (REGLAN) 04:30: 22:24 Q8H ABX, 3 [place] injection 5 00 :00 doses, Medica l mg First dose Branch on Thu03/25/20 at 2330, Last dose on Thu03/26/20 at 1530, Routine heparin 2020-0 Yes 5000U 5,000 Univers (porcine) 8- Units, ity of injection 03:00: Subcutaneo [place] 5,000 Units 00 us, Q8H, Medi mariusz First dose Branch on Thu03/25/20 at 2200, Until Discontinu ed, Routine ondansetron 2020-0 Yes 4mg 4 mg, Slow Univers (ZOFRAN 8- IV Push, ity of (PF)) 02:46: Q6HPRN, [place] injection 4 11 Starting Medi mariusz mg Thu03/25/20 Branch at 2146, Until Discontinu ed, Routine, Nausea and Vomiting (N/V) acetaminoph 2020-0 Yes 650mg 650 mg, Un piyush en 8 Oral, ity of (TYLENOL) 02:46: Q6HPRN, [place] tablet 650 05 Starting Medic al mg [place] 03/25/20 Branch at 2146, Until Discontinu ed, Routine, Pain (scale 1-3) iohexol 2020-0 2020- No 100mL 100 mL, Unive rs (OMNIPAQUE 03-26 08 Intravenou it y of 350 01:30: 01:30 s, ONCE, 1 [place] BULK-100 00 :00 dose, [place] Medica l mL) 03/25/20 at Branch injection 2030, 100 mL Routine NaCl 0.9% 2020-0 2020- No 1000mL at 999 Uni vers (NS) bolus 03-26-03 mL/hr, ity of infusion 00:45: 00:42 1,000 mL, [place] 1,000 mL 00 :00 IV Medical Infusion, [place] ONCE, 1 dose, [place] 03/25/20 at 1945, JOÃO enoxaparin 2020-0 Yes [...] Yes 650mg 650 mg, Un piyush en 711 Oral, ity of (TYLENOL) 04:05: Q6HPRN, [place] tablet 650 30 Starting Medic al mg Fri Branch 03/02/20 at 2305, Until Discontinu ed, Routine, Pain (scale 1-3) Polyethylen 2020-0 Yes [id number] 17g Take 1 Univers e Glycol 7-07 Packet by ity of 3350 17 00:00: mouth [place] gram powder 00 daily. Medica l Branch Polyethylen 2020-0 Yes [id number] 17g Take 1 Univers e Glycol 7-07 Packet by ity of 3350 17 00:00: mouth [place] gram powder 00 daily. Medica l Branch Polyethylen 2020-0 Yes [id number] 17g Take 1 Univers e Glycol 7-07 Packet by ity of 3350 17 00:00: mouth [place] gram powder 00 daily. Medica l Branch Polyethylen 2020-0 Yes [id number] 17g Take 1 Univers e Glycol 7-07 Packet by ity of 3350 17 00:00: mouth [place] gram powder 00 daily. Medica l Branch Polyethylen 2020-0 2020- No [id number] 17g Take 1 Univers e Glycol 7-07 08-05 Packet by ity o f 3350 17 00:00: 00:00 mouth [place] gram powder 00 :00 daily. Medica l Branch Polyethylen 2020-0 Yes 17g 17 g, Unive rs e Glycol 7-06 Oral, ity of 3350 18:15: DAILY, [place] (MIRALAX) 00 First dose Medi mariusz powder 17 g on Thu [place] 02/27/20 at 1315, Until Discontinu ed, Routine enoxaparin 2020-0 Yes 40mg 40 mg, Unive rs (LOVENOX) 7-06 Subcutaneo ity of injection 14:00: us, DAILY, [place] 40 mg 00 First dose Medical on Thu [place] 02/27/20 at 0900, Until Discontinu ed, Routine polyethylen 2020-0 Yes [id number] 17g Take 17 g Univers e glycol 17 7-06 by mouth ity of gram/dose 00:00: daily. [place] powder 00 [facility] polyethylen 2020-0 Yes [id number] 17g Take 17 g Univers e glycol 17 7-06 by mouth ity of gram/dose 00:00: daily. [place] powder 00 [facility] polyethylen 2020-0 Yes [id number] 17g Take 17 g Univers e glycol 17 7-06 by mouth ity of gram/dose 00:00: daily. [place] powder 00 [facility] polyethylen 2020-0 Yes [id number] 17g Take 17 g Univers e glycol 17 7-06 by mouth ity of gram/dose 00:00: daily. [place] powder 00 [facility] polyethylen 2020-0 Yes [id number] 17g Take 17 g Univers e glycol 17 7-06 by mouth ity of gram/dose 00:00: daily. [place] powder [facility] polyethylen 2020-0 Yes [id number] 17g Take 17 g Univers e glycol 17 7-06 by mouth ity of gram/dose 00:00: daily. [place] powder [facility] polyethylen 2020-0 Yes [id number] 17g Take 17 g Univers e glycol 17 7-06 by mouth ity of gram/dose 00:00: daily. [place] powder [facility] polyethylen 2019-0 Yes [id number] 17g Take 17 g Univers e glycol 17 7-06 by mouth ity of gram/dose 00:00: daily. [place] powder [facility] polyethylen 2019-0 2020- No [id number] 17g Take 17 g Univers e glycol 17 7-06 09-08 by mouth ity of gram/dose 00:00: 00:00 daily. [place] powder 00 :00 [facility] iohexol 2020- No 120mL 120 mL, [...] 1100, Until 02/27/20 at 1257, Routine acetaminoph 2019- Yes 650mg 650 mg, Un piyush en 05 Oral, ity of (TYLENOL) 15:01: Q6HPRN, [place] tablet 650 46 Starting Medic al mg 02/26/20 Branch at 1001, Until Discontinu ed, Routine, Pain (scale 1-3), Pain (scale 4-6) pantoprazol 2019- 2020- No [id number] 40mg Take 1 Univers e 40 mg EC 6-15 09-14 tablet by ity of tablet 00:00: 04:59 mouth [place] 00 :00 daily for Medical 90 days. Branch pantoprazol 2019-0 2020- No [id number] 40mg Take 1 Univers e 40 mg EC 6-15 -14 tablet by ity of tablet 00:00: 04:59 mouth [place] 00 :00 daily for Medical 90 days. Branch pantoprazol 2019-0 2019- No [id number] 40mg Take 1 Univers e 40 mg EC 6-15 -14 tablet by ity of tablet 00:00: 04:59 mouth [place] 00 :00 daily for Medical 90 days. Branch pantoprazol 2019-0 2019- No [id number] 40mg Take 1 Univers e 40 mg EC 6-15 -14 tablet by ity of tablet 00:00: 04:59 mouth [place] 00 :00 daily for Medical 90 days. Branch pantoprazol 2019-2019- No [id number] 40mg Take 1 Univers e 40 mg EC 6-15 14 tablet by ity of tablet 00:00: 04:59 mouth [place] 00 :00 daily for Medical 90 days. Branch pantoprazol 2019-0 2019- No [id number] 40mg Take 1 Univers e 40 mg EC 6-15 -14 tablet by ity of tablet 00:00: 04:59 mouth [place] 00 :00 daily for Medical 90 days. Branch pantoprazol 2019-0 2019- No [id number] 40mg Take 1 Univers e 40 mg EC 6-15 -14 tablet by ity of tablet 00:00: 04:59 mouth [place] 00 :00 daily for Medical 90 days. Branch pantoprazol 2019-0 2019- No [id number] 40mg Take 1 Univers e 40 mg EC 6-15 -14 tablet by ity of tablet 00:00: 04:59 mouth [place] 00 :00 daily for Medical 90 days. Branch pantoprazol 2019-0 2020- No [id number] 40mg Take 1 Univers e 40 mg EC 6-15 -14 tablet by ity of tablet 00:00: 04:59 mouth [place] 00 :00 daily for Medical 90 days. Branch pantoprazol 2019-2019- No [id number] 40mg Take 1 Univers e 40 mg EC 6-15 09-14 tablet by ity of tablet 00:00: 04:59 mouth [place] 00 :00 daily for Medical 90 days. Branch pantoprazol 2019-0 2020- No [id number] 40mg Take 1 Univers e 40 mg EC 6-15 09-14 tablet by ity of tablet 00:00: 04:59 mouth [place] 00 :00 daily for Medical 90 days. Branch pantoprazol 2020-0 2020- No [id number] 40mg Take 1 Univers e 40 mg EC 6-15 09-14 tablet by ity of tablet 00:00: 04:59 mouth [place] 00 :00 daily for Medical 90 days. Branch pantoprazol 2019-0 2020- No [id number] 40mg Take 1 Univers e 40 mg EC 6-15 09-08 tablet by ity of tablet 00:00: 00:00 mouth [place] 00 :00 daily for Medical 90 days. Branch docusate 2020-0 2020- No [id number] 100mg Take 1 Univers 100 mg 6-14 09-13 capsule by ity of capsule 00:00: 04:59 mouth 2 [place] 00 :00 (two) Medical times Branch daily for 90 days. docusate 2020-0 2020- No [id number] 100mg Take 1 Univers 100 mg 6-14 09-13 capsule by ity of capsule 00:00: 04:59 mouth 2 [place] 00 :00 (two) Medical times Branch daily for 90 days. docusate 2020-0 2020- No [id number] 100mg Take 1 Univers 100 mg 6-14 09-13 capsule by ity of capsule 00:00: 04:59 mouth 2 [place] 00 :00 (two) Medical times Branch daily for 90 days. docusate 2020-0 2020- No [id number] 100mg Take 1 Univers 100 mg 6-14 09-13 capsule by ity of capsule 00:00: 04:59 mouth 2 [place] 00 :00 (two) Medical times Branch daily for 90 days. docusate 2020-0 2020- No [id number] 100mg Take 1 Univers 100 mg 6-14 09-13 capsule by ity of capsule 00:00: 04:59 mouth 2 [place] 00 :00 (two) Medical times Branch daily for 90 days. docusate 2020-0 2020- No [id number] 100mg Take 1 Univers 100 mg 6-14 09-13 capsule by ity of capsule 00:00: 04:59 mouth 2 [place] 00 :00 (two) Medical times Branch daily for 90 days. docusate 2020-0 2020- No [id number] 100mg Take 1 Univers 100 mg 6-14 -13 capsule by ity of capsule 00:00: 04:59 mouth 2 [place] 00 :00 (two) Medical times Branch daily for 90 days. docusate 2020-0 2020- No [id number] 100mg Take 1 Univers 100 mg 6-14 -13 capsule by ity of capsule 00:00: 04:59 mouth 2 [place] 00 :00 (two) Medical times Branch daily for 90 days. docusate 2020-0 2020- No [id number] 100mg Take 1 Univers 100 mg 6-14 -13 capsule by ity of capsule 00:00: 04:59 mouth 2 [place] 00 :00 (two) Medical times Branch daily for 90 days. docusate 2020-0 2020- No [id number] 100mg Take 1 Univers 100 mg 6-14 -13 capsule by ity of capsule 00:00: 04:59 mouth 2 [place] 00 :00 (two) Medical times Branch daily for 90 days. docusate 2020-0 2020- No [id number] 100mg Take 1 Univers 100 mg 6-14 -13 capsule by ity of capsule 00:00: 04:59 mouth 2 [place] 00 :00 (two) Medical times Branch daily for 90 days. docusate 2020-0 2020- No [id number] 100mg Take 1 Univers 100 mg 6-14 -13 capsule by ity of capsule 00:00: 04:59 mouth 2 [place] 00 :00 (two) Medical times Branch daily for 90 days. docusate 2020-0 2020- No [id number] 100mg Take 1 Univers 100 mg 6-14 [...] s mg 00 First dose Medical on [place] Branch 01/29/20 at 0900, Until Discontinu ed, Routine levothyroxi 2020-0 Yes 50ug 50 mcg, Uni vers ne 01-28 Oral, ity of (SYNTHROID) 11:00: QAM-0600, [place] tablet 50 00 First dose Medi mariusz mcg on [place] Branch 01/29/20 at 0600, Until Discontinu ed, Routine simethicone 2020-0 Yes 80mg 80 mg, Univ ers (GAS RELIEF 01-28 Oral, ity of (SIMETHICON 04:45: PC+HS, [place] E)) 00 First dose Medical chewable on [facility] tablet 80 01/28/20 at mg 2345, Until Discontinu ed, Routine D5W IV 2020-0 2020- No 1000mL at 50 Univers infusion 01-28 06-14 mL/hr, IV ity o f 1,000 mL 03:45: 18:41 Infusion, Javi as 00 :31 CONTINUOUS Medical , Starting Branch [facility] 01/28/20 at 2245, Until [place] 02/05/20 at 1341, Routine bisacodyL 2020-0 2020- No 10mg 10 mg, Unive rs (DULCOLAX) 01-28- Rectal, ity o f suppository 03:00: 02:52 [place] 1 [place] 10 [place] 00 :00 dose, [facility] Medical 01/28/20 at Branch 2200, Routine [...] 01-28 Oral, ity of (TYLENOL) 01:32: Q6HPRN, [place] tablet 650 14 Starting Medic al mg 01/28/20 Branch at 2031, Until Discontinu ed, Routine, Pain (scale 1-3) morpHINE 2020-0 2020- No 4mg 4 mg, Slow Un piyush injection 4 01-28- IV Push, ity of mg 00:45: 23:55 ONCE, 1 [place] 00 :00 dose, Sat Medical 01/28/20 at Branch 1945, STAT iohexol 2020-0 2020- No 100mL 100 mL, Unive rs (OMNIPAQUE 01-28 Intravenou it y of 350 00:00: 00:00 s, ONCE, 1 [place] BULK-100 00 :00 dose, Sat Medica l mL) 01/28/20 at [place] injection 1900, 100 mL Routine ondansetron 2020-0 [...] ed, Routine, Nausea and Vomiting (N/V) iohexol 2019-0 2020- No 100mL 100 mL, Unive rs (OMNIPAQUE 01-24 Intravenou it y of 350 02:15: 02:11 s, ONCE, 1 [place] BULK-100 00 :00 dose, Tue Medica l mL) 01/24/20 at [place] injection 5, 100 mL Routine morpHINE 2019- No 4mg 4 mg, Slow Un piyush injection 4 01-24 IV Push, ity of mg 01:45: 00:43 ONCE, 1 [place] 00 :00 dose, Tue Medical 01/24/20 at [...] IV Medical Infusion, Branch ONCE, 1 dose, [facility] 01/24/20 at 1945, JOÃO mineral oil 2019- 2020- No [id number] 30mL Take 30 mL Univers oral liquid 4-20 05-05 by mouth ity of 00:00: 04:59 daily for [place] 00 :00 14 days. Medical Branch tamsulosin 2019-0 Yes .4mg QD Take 1 [facility] (FLOMAX) 8-10 capsule [facility] 0.4 mg Cap 00:00: (0.4 mg Medi maruisz 24 hr 00 total) by Center capsule [...] (DAILY 04-14 abuse, in tablet by Health VITEconotherm) 00:00: 00:00 remission mouth tablet 00 :00 daily. 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 multivitami 2021- No Alcohol 1{tbl} QD Take 1 Lynne n (DAILY 04-14 abuse, in tablet by VIEO VITES) 00:00: 00:00 remission mouth tablet 00 :00 daily. 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 multivitami 2021- No Alcohol 1{tbl} QD Take 1 Lyn[place] n (DAILY 04-14 abuse, in tablet by VIEO VITEconotherm) 00:00: 00:00 remission mouth tablet 00 :00 daily. 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 multivitami 2021- No Alcohol 1{tbl} QD Take 1 Lyn[place] n (DAILY 04-14 abuse, in tablet by 5 examples) 00:00: 00:00 remission mouth tablet 00 :00 daily. thiamine, 2021- No Alcohol 100mg QD Take 1 H arris B-1, 100 mg 04-14 05-21 abuse, in tablet by Health tablet 00:00: 00:00 remission mouth 00 :00 daily. multivitami 2021- No Alcohol 1{tbl} QD Take 1 Lyn[place] n (DAILY 04-14-21 abuse, in tablet by VIEO VITEconotherm) 00:00: 00:00 remission mouth tablet 00 :00 daily. thiamine, 2021- No Alcohol 100mg QD Take 1 H arris B-1, 100 mg 04-14 05-21 abuse, in tablet by Health tablet 00:00: 00:00 remission mouth 00 :00 daily. multivitami 2021- No Alcohol 1{tbl} QD Take 1 [place] n (DAILY 04-14- abuse, in tablet by 5 examples) 00:00: 00:00 remission mouth tablet 00 :00 daily. thiamine, 2021- No Alcohol 100mg QD Take 1 H arris B-1, 100 mg 04-14-21 abuse, in tablet by Health tablet 00:00: 00:00 remission mouth 00 :00 daily. multivitami 2021- No Alcohol 1{tbl} QD Take 1 [place] n (DAILY 04-14- abuse, in tablet by VIEO VITEconotherm) 00:00: 00:00 remission mouth tablet 00 :00 daily. thiamine, 2021- No Alcohol 100mg QD Take 1 H arris B-1, 100 mg 04-14-21 abuse, in tablet by Health tablet 00:00: 00:00 remission mouth 00 :00 daily. multivitami 2021- No Alcohol 1{tbl} QD Take 1 [place] n (DAILY 04-14 05-21 abuse, in tablet by 5 examples) 00:00: 00:00 remission mouth tablet 00 :00 daily. 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 multivitami 2021- No Alcohol 1{tbl} QD Take 1 [place] n (DAILY 8-22 05-21 abuse, in tablet by Health VITES) [...] n (DAILY 04-14 abuse, in tablet by VIEO VITES) 00:00: 00:00 remission mouth tablet 00 [...] 00:00: mouth [place] 00 every Medical morning. [place] levothyroxi Yes 50ug Take 1 Univ ers ne 50 mcg 2-07 tablet by ity o f tablet 00:00: mouth [place] 00 every Medical morning. [place] levothyroxi Yes 50ug Take 1 Univ ers ne 50 mcg 2-07 tablet by ity o f tablet 00:00: mouth [place] 00 every Medical morning. [place] levothyroxi 2020- No 50ug Take 1 Uni vers ne 50 mcg 2-07 06-14 tablet by ity of tablet 00:00: 00:00 mouth [place] 00 :00 every Medical morning. Branch Immunizations Ordered Filled Immunization Date Status Comments [facility] e Immunization Name Name Influenza [...] IM 6+ MO Branch PPD 2017-04-14 Completed Lynne [...] y of Vaccine Quad IM 3+ 00:00:00 [facility] Influenza Virus 2016-05-16 Completed Universit y of Vaccine Quad IM 3+ 00:00:00 [facility] Influenza Virus 2016-05-16 Completed Universit y of Vaccine Quad IM 3+ 00:00:00 [facility] Influenza Virus 2016-05-16 Completed Universit y of Vaccine Quad IM 3+ 00:00:00 [facility] Influenza Virus 2016-05-16 Completed Universit y of Vaccine Quad IM 3+ 00:00:00 [facility] Influenza Virus 2016-05-16 Completed Universit y of Vaccine Quad IM 3+ 00:00:00 [facility] Influenza Virus 2016-05-16 Completed Universit y of Vaccine Quad IM 3+ 00:00:00 [facility] Influenza Virus 2016-05-16 Completed Universit y of Vaccine Quad IM 3+ 00:00:00 [facility] Influenza Virus 2016-05-16 Completed Universit y of Vaccine Quad IM 3+ 00:00:00 [facility] Influenza Virus 2016-05-16 Completed Universit y of Vaccine Quad IM 3+ 00:00:00 [facility] Influenza Virus 2016-05-16 Completed Universit y of Vaccine Quad IM 3+ 00:00:00 [facility] Influenza Virus 2016-05-16 Completed Universit y of Vaccine Quad IM 3+ 00:00:00 [facility] Influenza Virus 2016-05-16 Completed Universit y of Vaccine Quad IM 3+ 00:00:00 [facility] Influenza Virus 2016-05-16 Completed Universit y of Vaccine Quad IM 3+ 00:00:00 [facility] Influenza Virus 2016-05-16 Completed Universit y of Vaccine Quad IM 3+ 00:00:00 [facility] Influenza Virus 2016-05-16 Completed Universit y of Vaccine Quad IM 3+ 00:00:00 [facility] Influenza Virus 2016-05-16 Completed Universit y of Vaccine Quad IM 3+ 00:00:00 [facility] Influenza Virus 2016-05-16 Completed Universit y of Vaccine Quad IM 3+ 00:00:00 [facility] Influenza Virus 2016-05-16 Completed Universit y of Vaccine Quad IM 3+ 00:00:00 [facility] Influenza Virus 2016-05-16 Completed Universit y of Vaccine Quad IM 3+ 00:00:00 [facility] Influenza Virus 2016-05-16 Completed Universit y of Vaccine Quad IM 3+ 00:00:00 [facility] Influenza Virus 2016-05-16 Completed Universit y of Vaccine Quad IM 3+ 00:00:00 [facility] Influenza Virus 2016-05-16 Completed Universit y of Vaccine Quad IM 3+ 00:00:00 [facility] Influenza Virus 2016-05-16 Completed Universit y of Vaccine Quad IM 3+ 00:00:00 [facility] Influenza Virus 2016-05-16 Completed Universit y of Vaccine Quad IM 3+ 00:00:00 [facility] Influenza Virus 2016-05-16 Completed Universit y of Vaccine Quad IM 3+ 00:00:00 [facility] Influenza Virus 2016-05-16 Completed Universit y of Vaccine Quad IM 3+ 00:00:00 [facility] Influenza Virus 2016-05-16 Completed Universit y of Vaccine Quad IM 3+ 00:00:00 [facility] Influenza Virus 2016-05-16 Completed Universit y of Vaccine Quad IM 3+ 00:00:00 [facility] Influenza Virus 2016-05-16 Completed Universit y of Vaccine Quad IM 3+ 00:00:00 [facility] Influenza Virus 2016-05-16 Completed Universit y of Vaccine Quad IM 3+ 00:00:00 [facility] Influenza Virus 2016-05-16 Completed Universit y of Vaccine Quad IM 3+ 00:00:00 [facility] Influenza Virus 2016-05-16 Completed Universit y of Vaccine Quad IM 3+ 00:00:00 [facility] Influenza Virus 2016-05-16 Completed Universit y of Vaccine Quad IM 3+ 00:00:00 [facility] Influenza Virus 2016-05-16 Completed Universit y of Vaccine Quad IM 3+ 00:00:00 [facility] Influenza Virus 2016-05-16 Completed Universit y of Vaccine Quad IM 3+ 00:00:00 [facility] Influenza Virus 2016-05-16 Completed Universit y of Vaccine Quad IM 3+ 00:00:00 [facility] Influenza Virus 2016-05-16 Completed Universit y of Vaccine Quad IM 3+ 00:00:00 [facility] Influenza Virus 2016-05-16 Completed Universit y of Vaccine Quad IM 3+ 00:00:00 [facility] Influenza Virus 2016-05-16 Completed Universit y of Vaccine Quad IM 3+ 00:00:00 [facility] Influenza Virus 2016-05-16 Completed Universit y of Vaccine Quad IM 3+ 00:00:00 [facility] Influenza Virus 2016-05-16 Completed Universit y of Vaccine Quad IM 3+ 00:00:00 [facility] Influenza Virus 2016-05-16 Completed Universit y of Vaccine Quad IM 3+ 00:00:00 [facility] Influenza Virus 2016-05-16 Completed Universit y of Vaccine Quad IM 3+ 00:00:00 [facility] Influenza Virus 2016-05-16 Completed Universit y of Vaccine Quad IM 3+ 00:00:00 [facility] Influenza Virus 2016-05-16 Completed Universit y of Vaccine Quad IM 3+ 00:00:00 [facility] Influenza Virus 2016-05-16 Completed Universit y of Vaccine Quad IM 3+ 00:00:00 [facility] Influenza Virus 2016-05-16 Completed Universit y of Vaccine Quad IM 3+ 00:00:00 [facility] Influenza Virus 2016-05-16 Completed Universit y of Vaccine Quad IM 3+ 00:00:00 [facility] Influenza Virus 2016-05-16 Completed Universit y of Vaccine Quad IM 3+ 00:00:00 [facility] Influenza Virus 2016-05-16 Completed Universit y of Vaccine Quad IM 3+ 00:00:00 [facility] Influenza Virus 2016-05-16 Completed Universit y of Vaccine Quad IM 3+ 00:00:00 [facility] Influenza Virus 2016-05-16 Completed Universit y of Vaccine Quad IM 3+ 00:00:00 [facility] Influenza Virus 2016-05-16 Completed Universit y of Vaccine Quad IM 3+ 00:00:00 [facility] Influenza Virus 2016-05-16 Completed Universit y of Vaccine Quad IM 3+ 00:00:00 [facility] Influenza Virus 2016-05-16 Completed Universit y of Vaccine Quad IM 3+ 00:00:00 [facility] Influenza Virus 2016-05-16 Completed Universit y of Vaccine Quad IM 3+ 00:00:00 [facility] Influenza Virus 2016-05-16 Completed Universit y of Vaccine Quad IM 3+ 00:00:00 [facility] Influenza Virus 2016-05-16 Completed Universit y of Vaccine Quad IM 3+ 00:00:00 [facility] Influenza Virus 2016-05-16 Completed Universit y of Vaccine Quad IM 3+ 00:00:00 [facility] Influenza Virus 2016-05-16 Completed Universit y of Vaccine Quad IM 3+ 00:00:00 [facility] Influenza Virus 2016-05-16 Completed Universit y of Vaccine Quad IM 3+ 00:00:00 [facility] Influenza Virus 2016-05-16 Completed Universit y of Vaccine Quad IM 3+ 00:00:00 [facility] Influenza Virus 2016-05-16 Completed Universit y of Vaccine Quad IM 3+ 00:00:00 [facility] Influenza Virus 2016-05-16 Completed Universit y of Vaccine Quad IM 3+ 00:00:00 [facility] Influenza Virus 2016-05-16 Completed Universit y of Vaccine Quad IM 3+ 00:00:00 [facility] Influenza Virus 2016-05-16 Completed Universit y of Vaccine Quad IM 3+ 00:00:00 [facility] Influenza Virus 2016-05-16 Completed Universit y of Vaccine Quad IM 3+ 00:00:00 [facility] Influenza Virus 2016-05-16 Completed Universit y of Vaccine Quad IM 3+ 00:00:00 [facility] Influenza Virus 2016-05-16 Completed Universit y of Vaccine Quad IM 3+ 00:00:00 [facility] Influenza Virus 2016-05-16 Completed Universit y of Vaccine Quad IM 3+ 00:00:00 [facility] Influenza Virus 2016-05-16 Completed Universit y of Vaccine Quad IM 3+ 00:00:00 [facility] Influenza Virus 2016-05-16 Completed Universit y of Vaccine Quad IM 3+ 00:00:00 [facility] Influenza Virus 2016-05-16 Completed Universit y of Vaccine Quad IM 3+ 00:00:00 [facility] Influenza Virus 2016-05-16 Completed Universit y of Vaccine Quad IM 3+ 00:00:00 [facility] Influenza Virus 2016-05-16 Completed Universit y of Vaccine Quad IM 3+ 00:00:00 [facility] Vital Signs Vital Name Observation Time Observation Value Comments Source Systolic blood 2022-05-21 103 mm[Hg] University of pressure 17:00:00 [facility] Diastolic blood 2022-05-21 56 mm[Hg] Prole o f pressure 17:00:00 [facility] Heart rate 2022-05-21 71 /min [facility] 17:00:00 [facility] Respiratory rate 2022-05-21 11 /min [facility] 17:00:00 [facility] Oxygen saturation 2022-05-21 100 /min [facility] in Arterial blood 17:00:00 [facility] by Pulse oximetry Branch Body temperature 2022-05-21 36.39 Tasia University of 12:10:00 [facility] Body weight 2022-05-21 69.491 kg University of 09:00:00 [facility] BMI 2022-05-21 20.21 kg/m2 University of 09:00:00 [facility] Body height 2022-05-20 185.4 cm University of 06:07:00 [facility] Systolic blood 2022-04-10 115 mm[Hg] University of pressure 05:05:13 [facility] Diastolic blood 2022-04-10 93 mm[Hg] University o f pressure 05:05:13 [facility] Heart rate 2022-04-10 87 /min University of 05:05:13 [facility] Respiratory rate 2022-04-10 15 /min University of 05:05:13 [facility] Oxygen saturation 2022-04-10 100 /min Prole of in Arterial blood 05:05:13 [facility] by Pulse oximetry Branch Body temperature 2022-04-10 36.61 Tasia Prole of 01:35:00 [facility] Body height 2022-04-10 185.4 cm University of 01:35:00 [facility] Body weight 2022-04-10 68.04 kg University of 01:35:00 [facility] BMI 2022-04-10 19.79 kg/m2 University of 01:35:00 [facility] Systolic blood 2022-04-08 86 mm[Hg] University of pressure 13:00:00 [facility] Diastolic blood 2022-04-08 75 mm[Hg] University o f pressure 13:00:00 [facility] Heart rate 2022-04-08 61 /min University of 13:00:00 [facility] Body temperature 2022-04-08 35.67 Tasia University of 13:00:00 [facility] Respiratory rate 2022-04-08 17 /min University of 13:00:00 [facility] Oxygen saturation 2022-04-08 95 /min University of in Arterial blood 13:00:00 [facility] by Pulse oximetry Branch Body weight 2022-04-06 72.984 kg University of 08:20:00 [facility] BMI 2022-04-06 21.23 kg/m2 University of 08:20:00 [facility] Body height 2022-04-02 185.4 cm University 16:37:00 [facility] HEIGHT 2022-03-06 185.4 cm 12:05:00 WEIGHT 2022-03-06 65.772 kg 12:05:00 HEIGHT 2022-03-06 185.4 cm 12:05:00 WEIGHT 2022-03-06 65.772 kg 12:05:00 HEIGHT 2022-03-06 185.4 cm 12:05:00 WEIGHT 2022-03-06 65.772 kg 12:05:00 Systolic blood 2021-09-14 106 mm[Hg] University of pressure 03:17:00 [facility] Diastolic blood 2021-09-14 55 mm[Hg] University o f pressure 03:17:00 [facility] Heart rate 2021-09-14 86 /min University 03:17:00 [facility] Body temperature 2021-09-14 36.89 Tasia University 03:17:00 [facility] Respiratory rate 2021-09-14 18 /min University 03:17:00 [facility] Oxygen saturation 2021-09-14 98 /min [facility] in Arterial blood 03:17:00 [facility] by Pulse oximetry Branch Systolic blood 2021-09-12 90 mm[Hg] University of pressure 22:20:00 [facility] Diastolic blood 2021-09-12 66 mm[Hg] University o f pressure 22:20:00 [facility] Heart rate 2021-09-12 97 /min University of 22:20:00 [facility] Body temperature 2021-09-12 36.61 Tasia University 22:20:00 [facility] Respiratory rate 2021-09-12 16 /min University of 22:20:00 [facility] Oxygen saturation 2021-09-12 98 /min University of in Arterial blood 22:20:00 [facility] by Pulse oximetry Branch Body weight 2021-09-12 68.04 kg University of 20:25:00 [facility] BMI 2021-09-12 19.79 kg/m2 University of 20:25:00 [facility] Systolic blood 2021-09-12 103 mm[Hg] University of pressure 13:29:00 [facility] Diastolic blood 2021-09-12 67 mm[Hg] University o f pressure 13:29:00 [facility] Heart rate 2021-09-12 91 /min University of 13:29:00 [facility] Body temperature 2021-09-12 36.72 Tasia University of 13:29:00 [facility] Respiratory rate 2021-09-12 33 /min University of 13:29:00 [facility] Oxygen saturation 2021-09-12 98 /min University of in Arterial blood 13:29:00 [facility] mariusz by Pulse oximetry Branch Body weight 2021-09-12 68.04 kg University of 12:17:00 [facility] BMI 2021-09-12 19.79 kg/m2 University of 12:17:00 [facility] Systolic blood 2021-09-09 100 mm[Hg] University of pressure 04:59:00 [facility] Diastolic blood 2021-09-09 60 mm[Hg] University o f pressure 04:59:00 [facility] Heart rate 2021-09-09 85 /min University 04:59:00 [facility] Body temperature 2021-09-09 36.5 Tasia University of 04:59:00 [facility] Respiratory rate 2021-09-09 16 /min University 04:59:00 [facility] Body height 2021-09-09 185.4 cm University 04:59:00 [facility] Body weight 2021-09-09 68.04 kg University of 04:59:00 [facility] BMI 2021-09-09 19.79 kg/m2 University of 04:59:00 [facility] Oxygen saturation 2021-09-09 98 /min University of in Arterial blood 04:59:00 [facility] by Pulse oximetry Branch Systolic blood 2021-09-08 129 mm[Hg] University of pressure 05:42:00 [facility] Diastolic blood 2021-09-08 69 mm[Hg] University o f pressure 05:42:00 [facility] Heart rate 2021-09-08 85 /min University of 05:42:00 [facility] Respiratory rate 2021-09-08 17 /min University of 05:42:00 [facility] Oxygen saturation 2021-09-08 98 /min University of in Arterial blood 05:42:00 [facility] mariusz by Pulse oximetry Branch Body temperature 2021-09-08 37.44 Tasia Prole of 01:22:00 [facility] Body weight 2021-09-08 68 kg University of 01:22:00 [facility] BMI 2021-09-08 19.78 kg/m2 University of 01:22:00 [facility] Systolic blood 2021-09-06 123 mm[Hg] University of pressure 21:33:00 [facility] Branch Diastolic blood 2021-09-06 65 mm[Hg] University o f pressure 21:33:00 [facility] Heart rate 2021-09-06 91 /min University of 21:33:00 [facility] Body temperature 2021-09-06 36.39 Tasia University of 21:33:00 [facility] Respiratory rate 2021-09-06 18 /min University of 21:33:00 [facility] Body weight 2021-09-06 68.04 kg University of 21:33:00 [facility] BMI 2021-09-06 19.79 kg/m2 University of 21:33:00 [facility] Oxygen saturation 2021-09-06 100 /min University of in Arterial blood 21:33:00 [facility] by Pulse oximetry Branch Systolic blood 2021-09-05 99 mm[Hg] University of pressure 17:16:00 [facility] Diastolic blood 2021-09-05 62 mm[Hg] University o f pressure 17:16:00 [facility] Heart rate 2021-09-05 78 /min University of 17:16:00 [facility] Body temperature 2021-09-05 36.39 Tasia University of 17:16:00 [facility] Respiratory rate 2021-09-05 17 /min University of 17:16:00 [facility] Oxygen saturation 2021-09-05 95 /min University of in Arterial blood 17:16:00 [facility] by Pulse oximetry Branch Body height 2021-08-31 185.4 cm University of 07:29:00 [facility] Body weight 2021-08-31 68.04 kg University of 07:29:00 [facility] BMI 2021-08-31 19.79 kg/m2 University of 07:29:00 [facility] Systolic blood 2021-09-03 111 mm[Hg] University of pressure 15:59:00 [facility] Diastolic blood 2021-09-03 65 mm[Hg] University o f pressure 15:59:00 [facility] Heart rate 2021-09-03 75 /min University of 15:59:00 [facility] Body temperature 2021-09-03 35.72 Tasia University of 15:59:00 [facility] Respiratory rate 2021-09-03 18 /min University of 15:59:00 [facility] Oxygen saturation 2021-09-03 100 /min University of in Arterial blood 15:59:00 [facility] by Pulse oximetry Branch Body height 2021-08-31 185.4 cm University of 07:29:00 [facility] Body weight 2021-08-31 68.04 kg University of 07:29:00 [facility] BMI 2021-08-31 19.79 kg/m2 University of 07:29:00 [facility] Systolic blood 2021-08-29 111 mm[Hg] University of pressure 23:12:00 [facility] Diastolic blood 2021-08-29 73 mm[Hg] University o f pressure 23:12:00 [facility] Heart rate 2021-08-29 95 /min University 23:12:00 [facility] Body temperature 2021-08-29 37 Tasia University of 23:12:00 [facility] Respiratory rate 2021-08-29 18 /min University of 23:12:00 [facility] Body weight 2021-08-29 68.04 kg University of 23:12:00 [facility] [facility] BMI 2021-08-29 19.79 kg/m2 University of 23:12:00 [facility] Oxygen saturation 2021-08-29 99 /min Prole of in Arterial blood 23:12:00 [facility] by Pulse oximetry Branch Systolic blood 2021-08-05 92 mm[Hg] University of pressure 10:56:00 [facility] Diastolic blood 2021-08-05 75 mm[Hg] University o f pressure 10:56:00 [facility] Heart rate 2021-08-05 67 /min University of 10:56:00 [facility] Body temperature 2021-08-05 36.22 Tasia University of 10:56:00 [facility] Oxygen saturation 2021-08-05 93 /min University of in Arterial blood 10:56:00 [facility] by Pulse oximetry Branch Respiratory rate 2021-08-05 16 /min University 06:24:00 [facility] Body height 2021-07-30 185.4 cm University 09:49:00 [facility] Body weight 2021-07-30 65.772 kg University of 09:49:00 [facility] BMI 2021-07-30 19.13 kg/m2 University of 09:49:00 [facility] Systolic blood 2021-07-26 107 mm[Hg] [facility] of pressure 17:32:00 [facility] Diastolic blood 2021-07-26 69 mm[Hg] University o f pressure 17:32:00 [facility] Heart rate 2021-07-26 70 /min University of 17:32:00 [facility] Body temperature 2021-07-26 36.39 Tasia University of 17:32:00 [facility] Respiratory rate 2021-07-26 16 /min University of 17:32:00 [facility] Oxygen saturation 2021-07-26 96 /min University of in Arterial blood 17:32:00 [facility] mariusz by Pulse oximetry Branch Body height 2021-07-23 185.4 cm University of 08:40:00 [facility] Body weight 2021-07-23 84.5 kg University of 08:40:00 [facility] BMI 2021-07-23 24.58 kg/m2 University of 08:40:00 [facility] Systolic blood 2021-06-04 95 mm[Hg] [facility] of pressure 16:20:00 [facility] Diastolic blood 2021-06-04 60 mm[Hg] University o f pressure 16:20:00 [facility] Heart rate 2021-06-04 61 /min University of 16:20:00 [facility] Body temperature 2021-06-04 36.17 Tasia University of 16:20:00 [facility] Respiratory rate 2021-06-04 18 /min University of 16:20:00 [facility] Oxygen saturation 2021-06-04 100 /min University of in Arterial blood 16:20:00 [facility] mariusz by Pulse oximetry Branch Body weight 2021-06-01 65.772 kg University of 19:00:00 [facility] BMI 2021-06-01 19.13 kg/m2 University of 19:00:00 [facility] Body height 2021-05-31 185.4 cm University of 22:12:00 [facility] Systolic blood 2021-05-21 101 mm[Hg] [facility] of pressure 20:21:00 [facility] Diastolic blood 2021-05-21 68 mm[Hg] University o f pressure 20:21:00 [facility] Heart rate 2021-05-21 74 /min University of 20:21:00 [facility] Body temperature 2021-05-21 36.56 Tasia University of 20:21:00 [facility] Respiratory rate 2021-05-21 18 /min University of 20:21:00 [facility] Oxygen saturation 2021-05-21 99 /min University of in Arterial blood 20:21:00 [facility] mariusz by Pulse oximetry Branch Body height 2021-05-21 185.4 cm University of 00:15:00 [facility] Body weight 2021-05-21 65.772 kg University of 00:15:00 [facility] BMI 2021-05-21 19.13 kg/m2 University of 00:15:00 [facility] Systolic blood 2021-05-09 101 mm[Hg] University of pressure 16:32:00 [facility] Diastolic blood 2021-05-09 70 mm[Hg] University o f pressure 16:32:00 [facility] Heart rate 2021-05-09 69 /min University of 16:32:00 [facility] Body temperature 2021-05-09 36.72 Tasia University of 16:32:00 [facility] Respiratory rate 2021-05-09 16 /min University of 16:32:00 [facility] Oxygen saturation 2021-05-09 99 /min University of in Arterial blood 16:32:00 [facility] by Pulse oximetry [facility] Body height 2021-05-08 185.4 cm University of 05:48:00 [facility] Body weight 2021-05-08 80.196 kg University of 05:48:00 [facility] BMI 2021-05-08 23.33 kg/m2 University of 05:48:00 [facility] Heart rate 2020-09-27 89 /min University of 04:25:00 [facility] Respiratory rate 2020-09-27 20 /min University of 04:25:00 [facility] Oxygen saturation 2020-09-27 99 /min University of in Arterial blood 04:25:00 [facility] mariusz by Pulse oximetry Branch Systolic blood 2020-09-27 103 mm[Hg] University of pressure 04:02:00 [facility] Diastolic blood 2020-09-27 78 mm[Hg] University o f pressure 04:02:00 [facility] Body temperature 2020-09-27 36.72 Tasia University of 04:00:00 [facility] Body weight 2020-09-26 79.379 kg University of :35:00 [facility] BMI 2020-09-26 23.09 kg/m2 University of 22:35:00 [facility] Systolic blood 2020-08-24 105 mm[Hg] University of pressure 17:24:00 [facility] Diastolic blood 2020-08-24 64 mm[Hg] University o f pressure 17:24:00 [facility] Heart rate 2020-08-24 83 /min University of 17:24:00 [facility] Body temperature 2020-08-24 36.56 Tasia University of 17:24:00 [facility] Respiratory rate 2020-08-24 16 /min [facility] of 17:24:00 [facility] Oxygen saturation 2020-08-24 98 /min University of in Arterial blood 17:24:00 [facility] by Pulse oximetry Branch Body height 2020-08-23 185.4 cm [facility] 03:19:00 [facility] Body weight 2020-08-23 79.379 kg University of 03:19:00 [facility] BMI 2020-08-23 23.09 kg/m2 University of 03:19:00 [facility] Systolic blood 2020-07-10 126 mm[Hg] [facility] of pressure 01:32:00 [facility] Diastolic blood 2020-07-10 67 mm[Hg] University o f pressure 01:32:00 [facility] Heart rate 2020-07-10 92 /min University :32:00 [facility] Body temperature 2020-07-10 37.17 Tasia Prole of :32:00 [facility] Respiratory rate 2020-07-10 16 /min University of :32:00 [facility] Oxygen saturation 2020-07-10 100 /min University of in Arterial blood 01:32:00 [facility] by Pulse oximetry [facility] Body height 2020-07-09 154.9 cm University of ::00 [facility] Body weight 2020-07-09 68.04 kg University of ::00 [facility] BMI 2020-07-09 28.34 kg/m2 University of :23:00 [facility] Systolic blood 2020-06-05 106 mm[Hg] [facility] of pressure 15:00:00 [facility] Diastolic blood 2020-06-05 72 mm[Hg] University o f pressure 15:00:00 [facility] Heart rate 2020-06-05 84 /min [facility] of 15:00:00 [facility] Respiratory rate 2020-06-05 18 /min [facility] of 15:00:00 [facility] Oxygen saturation 2020-06-05 100 /min University of in Arterial blood 15:00:00 [facility] by Pulse oxim[facility] Body temperature 2020-06-05 36.61 Tasia University of 14:54:52 [facility] Body weight 2020-06-05 65.772 kg University of 11:48:00 [facility] BMI 2020-06-05 19.13 kg/m2 University of 11:48:00 [facility] Systolic blood 2020-06-04 130 mm[Hg] [facility] of pressure 18:30:00 [facility] Diastolic blood 2020-06-04 84 mm[Hg] University o f pressure 18:30:00 [facility] Heart rate 2020-06-04 72 /min [facility] of 18:30:00 [facility] Body temperature 2020-06-04 36.72 Tasia University of 18:30:00 [facility] Respiratory rate 2020-06-04 16 /min [facility] of 18:30:00 [facility] Oxygen saturation 2020-06-04 98 /min University of in Arterial blood 18:30:00 [facility] by Pulse oximetry [facility] Systolic blood 2020-05-31 90 mm[Hg] [facility] of pressure 19:59:00 [facility] Diastolic blood 2020-05-31 59 mm[Hg] University o f pressure 19:59:00 [facility] Heart rate 2020-05-31 88 /min [facility] of 19:59:00 [facility] Body temperature 2020-05-31 36.78 Tasia University of 19:59:00 [facility] Respiratory rate 2020-05-31 16 /min [facility] of 19:59:00 [facility] Oxygen saturation 2020-05-31 98 /min [facility] of in Arterial blood 19:59:00 [facility] by Pulse oximetry [facility] Body height 2020-05-30 185.4 cm [facility] of 18:29:00 [facility] Body weight 2020-05-30 69.5 kg weighed in bed University of 18:29:00 [facility] BMI 2020-05-30 20.21 kg/m2 University of 18:29:00 [facility] Systolic blood 2020-05-22 100 mm[Hg] [facility] of pressure 04:38:00 [facility] Diastolic blood 2020-05-22 71 mm[Hg] University o f pressure 04:38:00 [facility] Heart rate 2020-05-22 90 /min [facility] of 04:38:00 [facility] Respiratory rate 2020-05-22 18 /min [facility] of 04:38:00 [facility] Oxygen saturation 2020-05-22 97 /min [facility] of in Arterial blood 04:38:00 [facility] by Pulse oxim[facility] Body temperature 2020-05-22 36.83 Tasia University of 02:02:11 [facility] Body height 2020-05-22 185.4 cm [facility] of 01:59:00 [facility] Body weight 2020-05-22 65.772 kg University of 01:59:00 [facility] BMI 2020-05-22 19.13 kg/m2 University of 01:59:00 [facility] Systolic blood 2020-05-20 95 mm[Hg] [facility] of pressure 18:33:34 [facility] Diastolic blood 2020-05-20 62 mm[Hg] University o f pressure 18:33:34 [facility] Heart rate 2020-05-20 86 /min [facility] of 18:33:34 [facility] Respiratory rate 2020-05-20 20 /min [facility] of 18:33:34 [facility] Oxygen saturation 2020-05-20 98 /min [facility] in Arterial blood 18:33:34 [facility] by Pulse o[facility] Body temperature 2020-05-20 37 Tasia [facility] of 12:02:00 [facility] Body weight 2020-05-20 65.8 kg University of 12:02:00 [facility] BMI 2020-05-20 19.14 kg/m2 [facility] of 12:02:00 [facility] Systolic blood 2020-05-20 101 mm[Hg] [facility] pressure 10:58:00 [facility] Diastolic blood 2020-05-20 56 mm[Hg] University o f pressure 10:58:00 [facility] Heart rate 2020-05-20 79 /min [facility] of 10:58:00 [facility] Body temperature 2020-05-20 37 Tasia [facility] of 10:58:00 [facility] Respiratory rate 2020-05-20 16 /min [facility] of 10:58:00 [facility] Oxygen saturation 2020-05-20 99 /min [facility] in Arterial blood 10:58:00 [facility] Pulse o[facility] Body height 2020-05-20 185.4 cm [facility] of 02:36:00 [facility] Body weight 2020-05-20 65.772 kg University of 02:36:00 [facility] BMI 2020-05-20 19.13 kg/m2 University of 02:36:00 [facility] Systolic blood 2020-05-12 93 mm[Hg] [facility] of pressure 17:02:00 [facility] Diastolic blood 2020-05-12 61 mm[Hg] University o f pressure 17:02:00 [facility] Body temperature 2020-05-12 37.06 Tasia [facility] of 17:02:00 [facility] Heart rate 2020-05-12 74 /min [facility] of 09:00:00 [facility] Respiratory rate 2020-05-12 18 /min [facility] of 09:00:00 [facility] Oxygen saturation 2020-05-12 95 /min [facility] Arterial blood 09:00:00 [facility] by Pulse oximetry [place] Body height 2020-05-05 185.4 cm [facility] of 09:05:00 [facility] Body weight 2020-05-05 65.772 kg [facility] of 09:05:00 [facility] BMI 2020-05-05 19.13 kg/m2 [facility] of 09:05:00 [facility] Systolic blood 2020-05-03 107 mm[Hg] [facility] of pressure 04:30:00 [facility] Diastolic blood 2020-05-03 62 mm[Hg] University o f pressure 04:30:00 [facility] Heart rate 2020-05-03 105 /min [facility] of 04:30:00 [facility] Body temperature 2020-05-03 37.22 Tasia [facility] of 04:30:00 [facility] Respiratory rate 2020-05-03 14 /min [facility] of 04:30:00 [facility] Body height 2020-05-03 185.4 cm [facility] of 04:30:00 [facility] Body weight 2020-05-03 65.772 kg [facility] of 04:30:00 [facility] BMI 2020-05-03 19.13 kg/m2 [facility] of 04:30:00 [facility] Systolic blood 2020-05-02 105 mm[Hg] [facility] of pressure 12:46:00 [facility] Diastolic blood 2020-05-02 57 mm[Hg] University o f pressure 12:46:00 [facility] Heart rate 2020-05-02 79 /min [facility] of 12:46:00 [facility] Body temperature 2020-05-02 36.28 Tasia [facility] 12:46:00 [facility] Respiratory rate 2020-05-02 16 /min [facility] of 12:46:00 [facility] Oxygen saturation 2020-05-02 98 /min [facility] in Arterial blood 12:46:00 [facility] mariusz by Pulse oximetry Branch Body height 2020-04-16 185.4 cm [facility] of 20:11:00 [facility] Body weight 2020-04-16 79.379 kg University of 20:11:00 [facility] BMI 2020-04-16 23.09 kg/m2 University of 20:11:00 [facility] Respiratory rate 2020-04-06 12 /min [facility] 16:20:00 [facility] Systolic blood 2020-03-28 125 mm[Hg] [facility] pressure 16:00:00 [facility] Diastolic blood 2020-03-28 87 mm[Hg] University o f pressure 16:00:00 [facility] Heart rate 2020-03-28 74 /min [facility] of 16:00:00 [facility] Body temperature 2020-03-28 36.44 Tasia [facility] of 16:00:00 [facility] Respiratory rate 2020-03-28 18 /min [facility] of 16:00:00 [facility] Oxygen saturation 2020-03-28 100 /min [facility] of in Arterial blood 16:00:00 [facility] mariusz by Pulse oximetry Branch Body height 2020-03-26 185.4 cm [facility] of 03:49:00 [facility] Body weight 2020-03-26 74.844 kg University of 03:49:00 [facility] BMI 2020-03-26 21.77 kg/m2 [facility] of 03:49:00 [facility] Systolic blood 2020-03-05 107 mm[Hg] [facility] of pressure 16:00:00 [facility] Diastolic blood 2020-03-05 67 mm[Hg] University o f pressure 16:00:00 [facility] Heart rate 2020-03-05 56 /min [facility] of 16:00:00 [facility] Body temperature 2020-03-05 36.5 Tasia [facility] of 16:00:00 [facility] Respiratory rate 2020-03-05 18 /min [facility] of 16:00:00 [facility] Oxygen saturation 2020-03-05 100 /min [facility] of in Arterial blood 16:00:00 [facility] mariusz by Pulse oximetry Branch Body height 2020-03-03 185.4 cm [facility] of 05:49:00 [facility] Body weight 2020-03-03 71.668 kg University of 05:49:00 [facility] BMI 2020-03-03 20.85 kg/m2 University of 05:49:00 [facility] Systolic blood 2020-02-27 100 mm[Hg] [facility] of pressure 21:12:00 [facility] Diastolic blood 2020-02-27 74 mm[Hg] University o f pressure 21:12:00 [facility] Heart rate 2020-02-27 90 /min [facility] of 21:12:00 [facility] Body temperature 2020-02-27 35.78 Tasia [facility] of 21:12:00 [facility] Respiratory rate 2020-02-27 19 /min [facility] of 21:12:00 [facility] Oxygen saturation 2020-02-27 99 /min [facility] of in Arterial blood 21:12:00 [facility] by Pulse oximetry [place] Body weight 2020-02-26 71.215 kg [facility] of 23:05:00 [facility] BMI 2020-02-26 20.71 kg/m2 [facility] of 23:05:00 [facility] Systolic blood 2020-02-26 132 mm[Hg] [facility] of pressure 07:43:00 [facility] Diastolic blood 2020-02-26 71 mm[Hg] University o f pressure 07:43:00 [facility] Heart rate 2020-02-26 82 /min [facility] of 07:43:00 [facility] Respiratory rate 2020-02-26 18 /min [facility] of 07:43:00 [facility] Oxygen saturation 2020-02-26 100 /min [facility] of in Arterial blood 07:43:00 [facility] by Pulse oximetry [place] Body temperature 2020-02-26 36.94 Tasia [facility] of 04:57:00 [facility] Body height 2020-02-26 185.4 cm [facility] of 02:30:00 [facility] Body weight 2020-02-26 68.04 kg [facility] of 02:30:00 [facility] BMI 2020-02-26 19.79 kg/m2 [facility] of 02:30:00 [facility] Systolic blood 2020-02-05 100 mm[Hg] [facility] of pressure 16:00:00 [facility] Diastolic blood 2020-02-05 61 mm[Hg] [facility] o f pressure 16:00:00 [facility] Heart rate 2020-02-05 60 /min [facility] of 16:00:00 [facility] Body temperature 2020-02-05 36.67 Tasia [facility] of 16:00:00 [facility] Respiratory rate 2020-02-05 17 /min [facility] 16:00:00 [facility] Oxygen saturation 2020-02-05 98 /min [facility] in Arterial blood 16:00:00 [facility] P[facility] Body height 2020-01-28 185.4 cm [facility] of 23:13:00 [facility] Body weight 2020-01-28 68.04 kg University of 23:13:00 [facility] BMI 2020-01-28 19.79 kg/m2 [facility] of 23:13:00 [facility] Systolic blood 2020-02-05 100 mm[Hg] [facility] of pressure 16:00:00 [facility] Diastolic blood 2020-02-05 61 mm[Hg] University o f pressure 16:00:00 [facility] Heart rate 2020-02-05 60 /min [facility] of 16:00:00 [facility] Body temperature 2020-02-05 36.67 Tasia [facility] of 16:00:00 [facility] Respiratory rate 2020-02-05 17 /min [facility] of 16:00:00 [facility] Oxygen saturation 2020-02-05 98 /min [facility] of in Arterial blood 16:00:00 [facility] mariusz by Pulse oximetry Branch Body height 2020-01-28 185.4 cm [facility] of 23:13:00 [facility] Body weight 2020-01-28 68.04 kg [facility] of 23:13:00 [facility] BMI 2020-01-28 19.79 kg/m2 [facility] of 23:13:00 [facility] Systolic blood 2020-01-27 114 mm[Hg] [facility] of pressure 00:32:00 [facility] Diastolic blood 2020-01-27 66 mm[Hg] University o f pressure 00:32:00 [facility] Heart rate 2020-01-27 73 /min [facility] of 00:32:00 [facility] Body temperature 2020-01-27 36.67 Tasia University of 00:32:00 [facility] Respiratory rate 2020-01-27 18 /min [facility] of 00:32:00 [facility] Oxygen saturation 2020-01-27 97 /min [facility] of in Arterial blood 00:32:00 [facility] Body height 2020-01-24 185.4 cm [facility] of 23:55:00 [facility] Body weight 2020-01-24 68.04 kg [facility] of 23:55:00 [facility] BMI 2020-01-24 19.79 kg/m2 University of 23:55:00 [facility] Systolic blood 2020-01-27 114 mm[Hg] [facility] of pressure 00:32:00 [facility] Diastolic blood 2020-01-27 66 mm[Hg] University o f pressure 00:32:00 [facility] Heart rate 2020-01-27 73 /min [facility] of 00:32:00 [facility] Body temperature 2020-01-27 36.67 Tasia [facility] of 00:32:00 [facility] Respiratory rate 2020-01-27 18 /min [facility] of 00:32:00 [facility] Oxygen saturation 2020-01-27 97 /min [facility] of in Arterial blood 00:32:00 [facility] Body height 2020-01-24 185.4 cm University of :55:00 [facility] Body weight 2020-01-24 68.04 kg University of :55:00 [facility] BMI 2020-01-24 19.79 kg/m2 University of :55:00 [facility] Body temperature 2019-12-13 36.72 Tasia University of 02:56:16 [facility] Systolic blood 2019-12-13 114 mm[Hg] [facility] of pressure 01:57:00 [facility] Diastolic blood 2019-12-13 77 mm[Hg] University o f pressure 01:57:00 [facility] Heart rate 2019-12-13 75 /min University of :57:00 [facility] Respiratory rate 2019-12-13 20 /min University of :57:00 [facility] Body height 2019-12-13 185.4 cm University of :57:00 [facility] Body weight 2019-12-13 68.04 kg University of :57:00 [facility] BMI 2019-12-13 19.79 kg/m2 University of :57:00 [facility] Oxygen saturation 2019-12-13 97 /min [facility] of in Arterial blood 01:57:00 [facility] Body temperature 2019-12-13 36.72 Tasia University of 02:56:16 [facility] Systolic blood 2019-12-13 114 mm[Hg] [facility] of pressure 01:57:00 [facility] Diastolic blood 2019-12-13 77 mm[Hg] University o f pressure 01:57:00 [facility] Heart rate 2019-12-13 75 /min University of 01:57:00 [facility] Respiratory rate 2019-12-13 20 /min [facility] :57:00 [facility] Body height 2019-12-13 185.4 cm [facility] :57:00 [facility] Body weight 2019-12-13 68.04 kg [facility] :57:00 [facility] BMI 2019-12-13 19.79 kg/m2 [facility] :57:00 [facility] Oxygen saturation 2019-12-13 97 /min [facility] in Arterial blood 01:57:00 [facility] by Pulse oximetry [place] Systolic blood 2022-03-13 94 mm[Hg] [facility] pressure 15:33:00 Diastolic blood 2022-03-13 62 mm[Hg] [facility] h pressure 15:33:00 Heart rate 2022-03-13 109 /min [facility] 15:33:00 Body temperature 2022-03-13 36.67 Tasia [facility] th 15:33:00 Respiratory rate 2022-03-13 20 /min [facility] 15:33:00 Body height 2022-03-13 185.4 cm [facility] 15:33:00 Body weight 2022-03-13 66.679 kg [facility] 15:33:00 BMI 2022-03-13 19.39 kg/m2 [facility] 15:33:00 Oxygen saturation 2022-03-13 100 /min [facility] Arterial blood 15:33:00 by Pulse oximetry Systolic blood 2022-03-09 107 mm[Hg] [facility] pressure 11:00:00 [facility] Diastolic blood 2022-03-09 66 mm[Hg] [facility] pressure 11:00:00 [facility] Heart rate 2022-03-09 58 /min [facility] 11:00:00 [facility] Body temperature 2022-03-[address] [facility] 11:[facility]:00 [facility] Respiratory rate 2022-03-09 16 /min [facility] 11:00:00 [facility] Oxygen saturation 2022-03-09 100 /min [facility] Arterial blood 11:00:00 [facility] nter by Pulse oximetry Body height 2022-03-[address] [facility] 12:05:00 [facility] Body weight 2022-03-[address] [facility] 12:05:00 [facility] BMI 2022-03-06 19.13 kg/m2 [facility] 12:05:00 [facility] Procedures Procedure Date / Time Performing Clinician Source Performed PHOSPHORUS 2022-05-21 09:31:00 Adriane [facility] MAGNESIUM 2022-05-21 09:31:00 Adriane [facility] BASIC METABOLIC PANEL (NA, 2022-05-21 09:31:00 Adriane [facility] K, CL, CO2, GLUCOSE, BUN, Medica l Branch CREATININE, CA) CBC WITH DIFF 2022-05-21 09:31:00 Adriane [facility] INTACT PTH CALCIUM GROUP 2022-05-20 18:29:00 Douglas Arizmendi [facility] RENAL ARTERY DUPLEX - BY 2022-05-20 17:58:00 Douglas Arizmendi [facility] VASCULAR LAB [facility] LACTIC ACID WHOLE BLOOD 2022-05-20 10:43:00 Eros Rios [facility] CREATINE KINASE 2022-05-20 08:36:00 Eros Rios [facility] URIC ACID 2022-05-20 08:36:00 Eros Rios [facility] MAGNESIUM 2022-05-20 08:36:00 Patel Rangel [facility] FERRITIN SERUM 2022-05-20 08:36:00 Eros Rios [facility] CORTISOL AM 2022-05-20 08:36:00 Eros Rios [facility] OSMOLALITY, SERUM OR 2022-05-20 08:36:00 Eros Rios [facility] PLASMA [facility] OSMOLALITY URINE 2022-05-20 08:36:00 Eros Rios [facility] AMMONIA, PLASMA 2022-05-20 08:36:00 Blanca christophe [facility] VITAMIN B12, LEVEL 2022-05-20 08:36:00 Eros Rios [facility] THYROID STIMULATING 2022-05-20 08:36:00 [facility] COMP. METABOLIC PANEL 2022-05-20 08:36:00 Eros Rios [facility] ([id number]) [facility] [place] LIPID PANEL ([id number])(TOTAL 2022-05-20 08:36:00 Eros Rios [facility] CHOLESTEROL, [facility] TRIGLYCERIDES, HDL) IRON PANEL 2022-05-20 08:36:00 Eros Rios [facility] ETHANOL 2022-05-20 08:36:00 Blanca christophe [facility] URINE DRUG (IMMUNOASSAY) - 2022-05-20 08:36:00 Eros Rios [facility] COMPREHENSIVE DRUG SCREEN Medica l Branch SEDIMENTATION RATE 2022-05-20 08:36:00 Eros Rios [facility] CBC WITH DIFF 2022-05-20 08:36:00 Blanca christophe [facility] GLYCOSYLATED HEMOGLOBIN 2022-05-20 08:36:00 Eros Rios [facility] (A1C) [facility] PROTHROMBIN TIME / INR 2022-05-20 08:36:00 Erso Rios [facility] URINALYSIS 2022-05-20 08:36:00 Blanca christophe [facility] OCCULT (GUAIAC) BLOOD 2022-05-20 08:36:00 Eros [facility] URINE CULTURE 2022-05-20 08:36:00 Eros Rios [facility] CLOSTRIDIUM DIFFICILE 2022-05-20 08:36:00 Blanca christophe [facility] TOXIN [facility] VITAMIN D, 25-OH 2022-05-20 08:36:00 Blanca christophe [facility] UREA NITROGEN, URINE 2022-05-20 08:36:00 Eros Rios [facility] SODIUM, URINE RANDOM 2022-05-20 08:36:[address] [facility] PROTEIN CREAT RATIO URINE 2022-05-20 08:36:00 Eros Rios [facility] AC VBG + LACTIC ACID 2022-05-20 08:36:[address] [facility] FECAL PATHOGENS BY PCR 2022-05-20 08:36:00 Eros Rios [facility] CT ABDOMEN PELVIS W 2022-05-20 03:23:04 Joel Baez [facility] CONTRAST [facility] COVID-19 (ID NOW RAPID 2022-05-20 01:44:00 Jole Baez [facility] TESTING) [facility] [place] LAB ONLY COVID 2022-05-20 01:44:00 Joel Baez [facility] INTERPRETATION [facility] LACTIC ACID WHOLE BLOOD 2022-05-20 01:42:00 Joel Baez [facility] LIPASE 2022-05-20 01:30:00 Joel Baez [facility] COMP. METABOLIC PANEL 2022-05-20 01:30:00 Joel Baez [facility] ([id number]) [facility] CBC WITH DIFF 2022-05-20 01:30:00 Joel Baez [facility] NOTICE OF PRIVACY 2022-05-19 23:54:00 Doctor Unassigned, [facility] PRACTICES [place] [facility] CONSENT/REFUSAL FOR 2022-05-19 23:53:24 Doctor Unassigned, [facility] DIAGNOSIS AND TREATMENT [place] [facility] COMP. METABOLIC PANEL 2022-04-10 03:54:00 Alvarez Austin [facility] ([id number]) [facility] CBC WITH DIFF 2022-04-10 03:49:00 Alvarez Austin [facility] LIPASE 2022-04-10 03:07:00 Alvarez Austin [facility] XR CHEST 2 VW 2022-04-10 02:59:18 Alvarez Austin [facility] COVID-19 (ID NOW RAPID 2022-04-10 02:43:00 Alvarez Austin [facility] TESTING) Medical Branch PHOSPHORUS 2022-04-08 10:26:00 Kurt [facility] MAGNESIUM 2022-04-08 10:26:00 [facility] BASIC [facility]OLIC PANEL (NA, 2022-04-08 10:26:00 Victor M Lemusal [facility] K, CL, CO2, GLUCOSE, BUN, Medica l Branch CREATININE, CA) CBC WITH DIFF 2022-04-08 10:26:00 Kurt [facility] PHOSPHORUS 2022-04-07 09:45:00 [facility]UM 2022-04-07 09:45:00 [facility]EL (NA, 2022-04-07 09:45:00 Albrobert [facility] [place] K, CL, CO2, GLUCOSE, BUN, Medica l Branch CREATININE, CA) LACTIC ACID WHOLE BLOOD 2022-04-06 09:05:[address] [facility] MAGNESIUM 2022-04-06 09:04:00 Kurt [facility] BASIC METABOLIC PANEL (NA, 2022-04-06 09:04:00 Rolf Lemus [facility] [facility] K, CL, CO2, GLUCOSE, BUN, Medica l Branch CREATININE, CA) CBC WITH DIFF 2022-04-06 09:04:00 Kurt [facility] BASIC METABOLIC PANEL (NA, 2022-04-05 08:12:00 Agatha Noonan [facility] K, CL, CO2, GLUCOSE, BUN, Medica l Branch CREATININE, CA) ACUTE CARE VENOUS BLOOD 2022-04-05 08:12:00 Octavio Macario [facility] CBC WITH DIFF 2022-04-05 08:12:00 Agatha Noonan [facility] BASIC METABOLIC PANEL (NA, 2022-04-04 09:03:00 LemusRolf cottrell [facility] K, CL, CO2, GLUCOSE, BUN, Medica l Branch CREATININE, CA) US RETROPERITONEAL LIMITED 2022-04-03 23:10:49 Octavio Macario [facility] ACUTE CARE VENOUS BLOOD 2022-04-03 18:33:00 Amirah [facility] GAS [facility] OSMOLALITY URINE 2022-04-03 17:59:00 Amirah [facility] BASIC METABOLIC PANEL (NA, 2022-04-03 17:59:00 Octavio Macario [facility] K, CL, CO2, GLUCOSE, BUN, Medica l Branch CREATININE, CA) CREATININE, URINE RANDOM 2022-04-03 17:59:00 Octavio Macario [facility] POTASSIUM, URINE RANDOM 2022-04-03 17:59:00 Amirah [facility] SODIUM, URINE RANDOM 2022-04-03 17:59:[address] [facility] MAGNESIUM 2022-04-03 09:29:00 Amirah [facility] OSMOLALITY, SERUM OR 2022-04-03 09:29:00 Octavio Macario [facility] PLASMA [facility] BASIC METABOLIC PANEL (NA, 2022-04-03 09:29:00 Juventino Thomas [facility] K, CL, CO2, GLUCOSE, BUN, Medica l Branch CREATININE, CA) CBC WITH DIFF 2022-04-03 09:29:00 [facility] CLO[facility]FFICILE 2022-04-03 03:44:00 Juventino Thomas [facility] TOXIN [facility] LACTIC ACID WHOLE BLOOD 2022-04-03 03:38:00 William [facility] LACTIC ACID WHOLE BLOOD 2022-04-03 00:07:00 [facility] 2022-04-02 22:39:00 Rekha Sheehan [facility] CT ABDOMEN PELVIS WO 2022-04-02 21:07:00 Rekha Sheehan [facility] CONTRAST [facility] LIPASE 2022-04-02 20:00:00 Rekha Sheehan [facility] TROPONIN I 2022-04-02 20:00:00 Rekha Sheehan [facility] HEPATIC FUNCTION PANEL 2022-04-02 20:00:00 Rekha Sheehan [facility] ([id number]) (ALB,T.PRO,BILI Medical Branch T,BU/BC,ALT,AST,ALK PHOS) BASIC METABOLIC PANEL (NA, 2022-04-02 20:00:00 Rekha Sheehan [facility] K, CL, CO2, GLUCOSE, BUN, Medica l Branch CREATININE, CA) URINALYSIS 2022-04-02 20:00:00 Aguila [facility] CBC WITH DIFF 2022-04-02 18:20:00 Aguila [facility] COVID-19 (ID NOW RAPID 2022-04-02 18:20:00 Aguila [facility] TESTING) Medical Branch LAB ONLY COVID 2022-04-02 18:20:00 Aguila [facility] INTERPRETATION [facility] XR CHEST 2 VW 2022-04-02 17:29:13 Aguila [facility] HB ECG ROUTINE & RHYTHM 2022-04-02 16:32:43 Rekha Sheehan [facility] STRIP Medical Branch CONSENT/REFUSAL FOR 2022-04-02 16:29:46 Doctor Unassigned, [facility] DIAGNOSIS AND TREATMENT [place] [facility] BASIC METABOLIC PANEL 2022-03-07 05:51:00 [facility] 2022-03-07 05:51:00 Romie Kuo [facility] CBC W/PLT COUNT & AUTO 2022-03-07 05:51:00 [facility] CBC W/PLT COUNT & AUTO 2022-03-07 05:51:00 [facility] DIFFERENTIAL [place] RENAL COMPLETE 2022-03-06 18:23:00 Romie Kuo [facility] SARS-COV2/RT-PCR ([facility] & 2022-03-06 17:36:00 [facility] TSH/FREE T4 IF INDICATED 2022-03-06 14:18:00 Aryan Tello [facility] T4, FREE 2022-03-06 14:18:00 Aryan Tello [facility] ED ECG INTERPRETATION 2022-03-06 13:48:12 Aryan Tello [facility] XR CHEST 1 VIEW PORTABLE / 2022-03-06 13:42:00 Aryan Tello [facility] BEDSIDE [facility] B-TYPE NATRIURETIC FACTOR 2022-03-06 13:23:00 Aryan Tello [facility] (BNP) [facility] CBC W/PLT COUNT & AUTO 2022-03-06 13:23:00 Aryan Tello [facility] S [facility] DIFFERENTIAL [facility] COMPREHENSIVE METABOLIC 2022-03-06 13:23:00 Aryan Tello [facility] PANEL [facility] HIGH SENSITIVITY TROPONIN 2022-03-06 13:23:00 Aryan Tello CH I [facility] MAGNESIUM 2022-03-06 13:23:00 Aryan Tello [facility] PHOSPHORUS 2022-03-06 13:23:00 Aryan Tello [facility] LACTIC ACID, VENOUS 2022-03-06 13:23:00 Aryan Tello [facility] CREATINE KINASE (CK) 2022-03-06 13:23:00 Aryan Tello [facility] CBC W/PLT COUNT & AUTO 2022-03-06 13:23:00 Aryan Tello [facility] DIFFERENTIAL [facility] ECG 12-LEAD 2022-03-06 12:12:56 Unknown, Hl[facility] ECG 12-LEAD 2022-03-06 12:12:56 Unknown, Hl7 [facility] ECG 12-LEAD 2022-03-06 12:12:56 Unknown, Hl7 [facility] EKG-SCANNED 2022-03-06 00:00:00 Provider, [facility] CBC (WITHOUT DIFFERENTIAL) 2022-02-20 05:10:00 [facility] BASIC METABOLIC PANEL 2022-02-20 05:10:00 Rufino Lazaro [facility] MAGNESIUM 2022-02-20 05:10:00 Rufino Lazaro h PHOSPHORUS 2022-02-20 05:10:00 Rufino Lazaro h INFUSION PUMP 2022-02-19 19:03:50 Rufino Lazaro h COMPREHENSIVE METABOLIC 2022-02-19 06:35:00 Fannie Blake [facility] PANEL CBC/DIFF 2022-02-19 06:35:00 Fannie Blake alth PHOSPHORUS 2022-02-19 06:35:00 Fannie Blake alth CBC 2022-02-19 06:35:00 Fannie Blake alth URINALYSIS W/REFLEX TO 2022-02-19 00:34:00 Fannie Blake [facility] URINE CULTURE URINALYSIS 2022-02-19 00:34:00 Chadd Palacios [facility] URINE CULTURE COLLECTION 2022-02-19 00:34:00 Philip [facility] KIT SARS-COV-2, FLU A/B, RSV 2022-02-18 19:00:00 [facility] CORONAVIRUS, COVID-19, OLENA 2022-02-18 19:00:00 Chadd Palacios [facility] XRAY CHEST 1 VIEW 2022-02-18 15:23:00 Roz Scales [facility] CONSULT CLINICAL CASE 2022-02-18 14:50:50 Roz Scales [facility] MANAGEMENT (RN/SW) CBC/DIFF 2022-02-18 14:16:00 [facility] 2022-02-18 14:16:00 Susana Cooley [facility] MAGNESIUM 2022-02-18 14:16:[address] [facility] h PHOSPHORUS 2022-02-18 14:16:00 [facility] CREATINE KINASE (CK) 2022-02-18 14:16:00 Susana Cooley [facility] CBC 2022-02-18 14:16:00 [facility]OLIC PANEL 2022-02-11 03:34:00 Daily Islas [facility] MAGNESIUM 2022-02-11 03:34:00 Teresa Alves [facility] PHOSPHORUS 2022-02-11 03:34:00 Teresa Alves [facility] CBC (WITHOUT DIFFERENTIAL) 2022-02-11 03:34:00 [facility] CBC/DIFF 2022-02-10 03:39:00 [facility] PANEL 2022-02-10 03:39:00 [facility] 2022-02-10 03:39:[address] [facility] THYROID STIMULATING 2022-02-10 03:39:00 [facility] HORMONE (TSH) FREE T4 2022-02-10 03:39:00 JamilahTeresa de la garza [facility] CBC/DIFF 2022-02-09 04:38:00 Daily Islas [facility] h BASIC METABOLIC PANEL 2022-02-09 04:38:00 [facility] CBC 2022-02-09 04:38:00 [facility]ORT[facility], TOTAL 2022-02-08 11:37:00 [facility] GLU[facility]SE POC 2022-02-08 08:07:00 Daily Islas [facility] h CBC (WITHOUT DIFFERENTIAL) 2022-02-08 04:00:00 Jian Schmitt [facility] COMPREHENSIVE METABOLIC 2022-02-08 04:00:00 Jian Schmitt [facility] PANEL PHOSPHORUS 2022-02-08 04:00:00 Jian Schmitt ealth MAGNESIUM 2022-02-08 04:00:00 Jian Schmitt ealt PT/INR 2022-02-08 04:00:00 Jian Schmitt [facility] ealth URINALYSIS W/REFLEX TO 2022-02-07 18:06:00 Areli Arciniega [facility] URINE CULTURE URINALYSIS 2022-02-07 18:06:00 Areli Arciniega [facility] URINE CULTURE COLLECTION 2022-02-07 18:06:00 MicahemilianaAllyn shieldsediger Guadarrama [facility] KIT ELECTROLYTES, URINE 2022-02-07 18:06:00 Jyoti Carrillo [facility] OSMOLALITY, URINE 2022-02-07 18:06:00 Jyoti Carrillo ealt SARS-COV-2, FLU A/B, RSV 2022-02-07 18:05:00 Jyoti Carrillo [facility] CORONAVIRUS, COVID-19, OLENA 2022-02-07 18:05:00 Jyoti Carrillo [facility] NUTRITION CONSULT 2022-02-07 17:43:36 Jian Schmitt [facility] BASIC METABOLIC PANEL 2022-02-07 17:18:00 Jyoti Carrillo [facility] LACTIC ACID 2022-02-07 14:04:00 Areli Arciniega alth CBC/DIFF 2022-02-07 14:03:00 Areli Arciniega alth BASIC METABOLIC PANEL 2022-02-07 14:03:00 Galealyson Jazmineger Guadarrama [facility] LIVER PROFILE 2022-02-07 14:03:00 Areli Arciniega alth LIPASE 2022-02-07 14:03:00 Areli Arciniega alth MAGNESIUM 2022-02-07 14:03:00 Areli Arciniega alth PHOSPHORUS 2022-02-07 14:03:00 Areli Arciniega alth TROPONIN I 2022-02-07 14:03:00 Areli Arciniega alth CBC 2022-02-07 14:03:00 MicahemilianaAreli shields alth 12 LEAD EKG 2022-01-21 15:46:10 Ori Goldberg h CBC/DIFF 2022-01-21 04:11:00 Tien Lucas [facility] MAGNESIUM 2022-01-21 04:11:00 Tien Lucas [facility] PHOSPHORUS 2022-01-21 04:11:00 Tien Lucas [facility] BASIC METABOLIC PANEL 2022-01-21 04:11:00 YusufOri [facility] CBC 2022-01-21 04:11:00 [facility] CBC/DIFF 2022-01-20 04:37:00 LindseyTien child [facility] MAGNESIUM 2022-01-20 04:37:00 [facility] PHOSPHORUS 2022-01-20 04:37:00 [facility] BASIC METABOLIC PANEL 2022-01-20 04:37:00 Lindsey [facility] CBC 2022-01-20 04:37:00 [facility] Tien P [facility] MAGNESIUM 2022-01-19 18:09:00 [facility] Tien P [facility] PHOSPHORUS 2022-01-19 18:09:00 [facility] Tien P [facility] BASIC METABOLIC PANEL 2022-01-19 18:09:00 [facility], Tien P [facility] CORTISOL, TOTAL 2022-01-19 18:09:00 Karin Bassett [facility] URINALYSIS W/REFLEX TO 2022-01-19 17:22:00 [facility] URINE CULTURE URINALYSIS 2022-01-19 17:22:00 [facility] URINE CULTURE COLLECTION 2022-01-19 17:22:00 Tien Lucas [facility] KIT COMPUTED TOMOGRAPHY 2022-01-19 13:29:00 [facility] ABDOMEN AND PELVIS WITHOUT CONTRAST CBC/DIFF 2022-01-19 04:44:00 LindseyiTen herrera [facility] CBC 2022-01-19 04:44:00 [facility] DIFFERENTIAL, MANUAL (NO 2022-01-19 04:44:00 Noe Lucash P [facility] MORPHOLOGY)-[place] BASIC METABOLIC PANEL 2022-01-18 17:15:00 LindseyNoeh P [facility] CBC/DIFF 2022-01-18 04:46:00 [facility] MAGNESIUM 2022-01-18 04:46:00 [facility] Tien P [facility] PHOSPHORUS 2022-01-18 04:46:00 Tien Lucas [facility] BASIC METABOLIC PANEL 2022-01-18 04:46:00 Ori Goldberg [facility] CBC 2022-01-18 04:46:00 Tien Lucas [facility] HIV AG/AB COMBO ROUTINE 2022-01-18 04:46:00 Karin Bassett [facility] SCREENING ENTERIC PATHOGENS NUCLEIC 2022-01-18 03:25:00 Karin Bassett [facility] ACID TEST BASIC METABOLIC PANEL 2022-01-18 00:29:00 Ori Goldberg [facility] BASIC METABOLIC PANEL 2022-01-17 17:07:00 LindseyTien P [facility] BASIC METABOLIC PANEL 2022-01-17 13:15:00 [facility] CALPROTECTIN FECAL 2022-01-17 12:38:00 Tien Lucas ealth FECAL LEUKOCYTES 2022-01-17 12:38:00 Tien Lucas [facility] lt T-TRANSGLUTAMINASE IGA 2022-01-17 12:22:00 Tien Lucas [facility] BASIC METABOLIC PANEL 2022-01-17 08:51:00 LindseyTien P [facility] BASIC METABOLIC PANEL 2022-01-17 04:47:00 T[facility] CBC/DIFF 2022-01-17 04:47:00 Tien Lucas [facility] th MAGNESIUM 2022-01-17 04:47:00 Tien Lucas [facility] th PHOSPHORUS 2022-01-17 04:47:00 Tien Lucas [facility] CBC 2022-01-17 04:47:00 Tien Lucas [facility] BASIC METABOLIC PANEL 2022-01-17 00:08:00 T[facility] 12 LEAD EKG 2022-01-16 21:23:25 Tien Lucas [facility] BASIC METABOLIC PANEL 2022-01-16 21:08:00 [facility] XRAY CHEST 2 VIEWS 2022-01-16 19:56:00 T[facility] Lucas [facility] CONSULT TO PHYSICAL 2022-01-16 19:17:17 Tien Lucas [facility] THERAPY CONSULT CLINICAL CASE 2022-01-16 19:17:17 Tien Lucasi [facility] MANAGEMENT (RN/SW) SEQUENTIAL COMPRESSION 2022-01-16 19:17:17 Lindsey Tiengera [facility] PUMP SEQUENTIAL COMPRESSION 2022-01-16 19:17:17 Lindsey Tiengera [facility] PUMP SODIUM, URINE, RANDOM 2022-01-16 16:00:00 Kevin Nieves [facility] CREATININE, URINE, RANDOM 2022-01-16 16:00:00 NievesKevin barreto [facility] OSMOLALITY, URINE 2022-01-16 16:00:00 Kevin Nieves [facility] SARS-COV-2, FLU A/B, RSV 2022-01-16 15:20:00 NievesKevin barreto [facility] CORONAVIRUS, COVID-19, OLENA 2022-01-16 15:20:00 NievesKevin barreto [facility] FOLIC ACID 2022-01-16 14:13:00 Kevin Nieves [facility] CREATININE POC 2022-01-16 13:55:00 Raymon Martin [facility] BMP POC 2022-01-16 13:46:00 [facility]FF 2022-01-16 12:12:00 Raymon Martin CBC 2022-01-16 12:12:00 Raymon Martin [facility] BASIC METABOLIC PANEL 2022-01-16 12:11:00 Sadiq Vargas is Health MAGNESIUM 2022-01-16 12:11:00 Sadiq Vargas [facility] lt VITAMIN B12 2022-01-16 12:11:00 Kevin Nieves [facility] OSMOLALITY,SERUM 2022-01-16 12:11:00 Kevin Nieves [facility] INFUSION PUMP 2022-01-11 09:21:05 Helene Anderson [facility] GLUCOSE POC 2022-01-11 07:54:00 Helene Anderson [facility] BASIC METABOLIC PANEL 2022-01-11 04:07:00 RichardsMerissa [facility] MAGNESIUM 2022-01-11 04:07:00 [facility]22-01-11 04:07:00 RichardsMerissa Felicit[facility] CBC/DIFF 2022-01-11 04:06:00 Richards, Merissa [facility] IRON PROFILE 2022-01-11 04:06:00 Richards, Merissa [facility] FOLIC ACID 2022-01-11 04:06:00 Richards, [facility] CBC 2022-01-11 04:06:00 Richards, Merissa Felicita [facility] GLUCOSE POC 2022-01-10 18:16:00 Helene Anderson [facility] URINALYSIS 2022-01-10 16:10:00 Richards Merissa Felicita [facility] h URINALYSIS 2022-01-10 16:10:00 [facility], FLU A/B, RSV 2022-01-10 15:54:00 Merissa Richards [facility] CORONAVIRUS, COVID-19, OLENA 2022-01-10 15:54:00 Antoine Hester [facility] BASIC METABOLIC PANEL 2022-01-10 15:54:00 Merissa Richards [facility] VITAMIN B12 2022-01-10 15:54:00 Brodie Richardsa Felicita [facility] VBG POC 2022-01-10 11:14:00 Unknown, [facility] CBC/DIFF 2022-01-10 11:13:[address] [facility] h BASIC METABOLIC PANEL 2022-01-10 11:13:00 Antoine Hester [facility] LACTIC ACID 2022-01-10 11:13:00 [facility] 2022-01-10 11:13:[address] [facility] h LIVER PROFILE 2022-01-10 11:13:00 [facility], TOTAL 2022-01-10 11:13:00 [facility] F[facility] 2022-01-10 11:13:00 [facility] CREAT[facility]IN[facility] MB (CKMB) 2022-01-10 11:13:00 Merissa Richards [facility] XRAY CHEST 2 VIEWS 2022-01-08 21:50:14 Tanja Sebastian [facility] CBC/DIFF 2022-01-08 21:27:00 Tanja Sebastian [facility] BASIC METABOLIC PANEL 2022-01-08 21:27:00 Tanja Sebastian [facility] LIVER PROFILE 2022-01-08 21:27:00 Tanja Sebastian [facility] lt CK, TOTAL 2022-01-08 21:27:00 Randa Sebastianandra Watson [facility] TROPONIN I 2022-01-08 21:27:00 Tanja Sebastian [facility] CBC 2022-01-08 21:27:00 Randa Sebastianandra Watson [facility] CREATINE KINASE MB (CKMB) 2022-01-08 21:27:00 Tanja Sebastian [facility] 12 LEAD EKG 2022-01-08 20:59:56 Tanja Sebastian [facility] COMP. METABOLIC PANEL 2021-09-14 03:41:00 Mickey Ramos [facility] ([id number] CBC WITH DIFF 2021-09-14 03:41:00 Mickey Ramos [facility] CT HEAD WO CONTRAST 2021-09-12 14:10:[address] [facility] TROPONIN I 2021-09-12 13:00:00 Odin [facility] BASIC METABOLIC PANEL (NA, 2021-09-12 13:00:00 Odin [facility] K, CL, CO2, GLUCOSE, BUN, Medica l Branch CREATININE, CA) CBC WITH DIFF 2021-09-12 13:00:00 Odin [facility] N-TERMINAL PRO-BNP 2021-09-12 13:00:00 Alona Carty [facility] LIPASE 2021-09-09 05:30:00 Sebastian Pacheco [facility] COMP. METABOLIC PANEL 2021-09-09 05:30:00 Sebastian Pacheco [facility] ([id number]) [facility] [place] CBC WITH DIFF 2021-09-09 05:30:00 Sebastian Pacheco [facility] URINALYSIS 2021-09-08 04:45:00 Sebastian Pacheco [facility] CT ABDOMEN PELVIS W 2021-09-08 02:25:23 Sebastian Pacheco [facility] CONTRAST Medical Branch LIPASE 2021-09-08 02:02:00 Sebastian Pacheco [facility] COMP. METABOLIC PANEL 2021-09-08 02:02:00 Sebastian Pacheco [facility] ([id number]) [facility] [place] CBC WITH DIFF 2021-09-08 02:02:00 Sebastian Pacheco [facility] LACTIC ACID WHOLE BLOOD 2021-09-08 02:02:00 Sebastian Pacheco [facility] COVID-19 (ID NOW RAPID 2021-09-08 01:54:00 Sebastian Pacheco [facility] TESTING) Medical Branch BASIC METABOLIC PANEL (NA, 2021-09-04 12:30:00 Demario Godoy [facility] K, CL, CO2, GLUCOSE, BUN, Medica l Branch CREATININE, CA) BASIC METABOLIC PANEL (NA, 2021-09-04 12:30:00 Demario Godoy [facility] K, CL, CO2, GLUCOSE, BUN, Medica l Branch CREATININE, CA) SURGICAL PATHOLOGY EXAM 2021-09-03 14:01:00 Mayela [facility] COLOSTOMY REVISION 2021-09-03 12:58:00 Mayela [facility] COLOSTOMY REVISION 2021-09-03 12:58:00 Mayela [facility] BASIC METABOLIC PANEL (NA, 2021-09-03 11:26:00 Cynthia Siddiqi [facility] K, CL, CO2, GLUCOSE, BUN, Medica l Branch CREATININE, CA) CBC WITHOUT DIFF 2021-09-03 11:26:00 Cynthia Siddiqi [facility] BASIC METABOLIC PANEL (NA, 2021-09-03 11:26:00 Siddiqi, [facility] [place] K, CL, CO2, GLUCOSE, BUN, Medica l Branch CREATININE, CA) CBC WITHOUT DIFF 2021-09-03 11:26:00 Siddiqi, [facility] TRANSTHORACIC ECHO (TTE) 2021-09-02 21:22:12 Siddiqi, [facility] COMPLETE W/ CONTRAST Medical [facility] TRANSTHORACIC ECHO (TTE) 2021-09-02 21:22:12 Siddiqi, [facility] COMPLETE W/ CONTRAST Medical [facility] COVID-19 (ID NOW RAPID 2021-09-02 19:35:00 Demario Godoy [facility] TESTING) Medical Branch LAB ONLY COVID 2021-09-02 19:35:00 Demario Godoy [facility] Branch COVID-19 (ID NOW RAPID 2021-09-02 19:35:00 Demario Godoy [facility] TESTING) Medical Branch LAB ONLY COVID 2021-09-02 19:35:00 Demario Godoy [facility] BASIC METABOLIC PANEL (NA, 2021-09-02 10:40:00 [...] CREATININE, CA) BLOOD CULTURE SCREEN 2021-09-01 08:03:[address] [facility] BASIC METABOLIC PANEL (NA, 2021-09-01 08:03:00 Siddiqi, Cynthia [facility] [place] K, CL, CO2, GLUCOSE, BUN, Medica l Branch CREATININE, CA) CBC WITH DIFF 2021-09-01 08:03:00 Neeru, [facility] BLOOD CULTURE SCREEN 2021-09-01 08:03:00 Chasity [facility] BASIC METABOLIC PANEL (NA, 2021-09-01 08:03:00 Siddiqi, [facility] K, CL, CO2, GLUCOSE, BUN, Medica l Branch CREATININE, CA) CBC WITH DIFF 2021-09-01 08:03:00 Neeru, [facility] MAGNESIUM 2021-09-01 02:09:00 [facility]OLIC PANEL (NA, 2021-09-01 02:09:00 Roberto [facility] K, CL, CO2, GLUCOSE, BUN, Ar[facility] Medica l Branch CREATININE, CA) MAGNESIUM 2021-09-01 02:09:00 Chasity [facility] BASIC METABOLIC PANEL (NA, 2021-09-01 02:09:00 Roberto [facility] K, CL, CO2, GLUCOSE, BUN, [facility] Medica [facility] CREATININE, CA) LACTIC ACID WHOLE BLOOD 2021-08-31 12:40:00 Siddiqi, [place] [facility] LACTIC ACID WHOLE BLOOD 2021-08-31 12:40:00 [facility] BASIC METABOLIC PANEL (NA, 2021-08-31 11:44:00 Chasity [facility] K, CL, CO2, GLUCOSE, BUN, Medica l Branch CREATININE, CA) BASIC METABOLIC PANEL (NA, 2021-08-31 11:44:00 Chasity [facility] K, CL, CO2, GLUCOSE, BUN, Medica l Branch CREATININE, CA) BASIC METABOLIC PANEL (NA, 2021-08-31 06:29:00 Chasity [facility] K, CL, CO2, GLUCOSE, BUN, Medica l Branch CREATININE, CA) LACTIC ACID WHOLE BLOOD 2021-08-31 06:29:00 Chasity [facility] BASIC METABOLIC PANEL (NA, 2021-08-31 06:29:00 [facility], [facility], CO2, GLUCOSE, BUN, Medica l Branch CREATININE, CA) LACTIC ACID WHOLE BLOOD 2021-08-31 06:29:00 Chasity [facility] BLOOD CULTURE SCREEN 2021-08-31 06:28:00 Chasity [facility] BLOOD CULTURE WORKUP 2021-08-31 06:28:00 Gaspar [facility] GRAM POSITIVE BLOOD 2021-08-31 06:28:00 Gaspar [facility] PATHOGENS DNA [facility] PROBE-AEROBIC BLOOD CULTURE SCREEN 2021-08-31 06:28:00 Chasity [facility] BLOOD CULTURE WORKUP 2021-08-31 06:28:00 Gaspar [facility] GRAM POSITIVE BLOOD 2021-08-31 06:28:00 Chasity [facility] PATHOGENS DNA [facility] PROBE-AEROBIC XR CHEST 2 VW 2021-08-31 03:08:00 Riccardo [facility] XR CHEST 2 VW 2021-08-31 03:08:00 Riccardo [facility] OSMOLALITY, SERUM OR 2021-08-31 02:44:00 [facility] TROP[facility] 2021-08-31 02:44:00 Riccardo [facility] THYROID STIMULATING 2021-08-31 02:44:00 [facility] BASIC METABOLIC PANEL (NA, 2021-08-31 02:44:00 Riccardo [facility] K, CL, CO2, GLUCOSE, BUN, [facility] CREATININE, CA) OSMOLALITY, SERUM OR 2021-08-31 02:44:00 [facility] TROPONIN I 2021-08-31 02:44:00 Riccardo [facility] THYROID STIMULATING 2021-08-31 02:44:[address] [facility] BASIC METABOLIC PANEL (NA, 2021-08-31 02:44:[facility], CO2, GLUCOSE, BUN, [facility] CREATININE, CA) OSMOLALITY URINE 2021-08-31 00:08:00 Chasity [facility] URINALYSIS 2021-08-31 00:08:00 Riccardo [facility] SODIUM, URINE RANDOM 2021-08-31 00:08:00 [facility], URINE RANDOM 2021-08-31 00:08:00 Chasity [facility] OSMOLALITY URINE 2021-08-31 00:08:00 Chasity [facility] URINALYSIS 2021-08-31 00:08:00 Riccardo [facility] SODIUM, URINE RANDOM 2021-08-31 00:08:00 Chasity [facility] CHLORIDE, URINE RANDOM 2021-08-31 00:08:00 Chasity [facility] TROPONIN I 2021-08-30 23:27:00 Riccardo [facility] COMP. METABOLIC PANEL 2021-08-30 23:27:00 [facility] ([id number] CBC WITH DIFF 2021-08-30 23:27:00 Riccardo [facility] N-TERMINAL PRO-BNP 2021-08-30 23:27:00 [facility] 2021-08-30 23:27[facility] COMP. METABOLIC PANEL 2021-08-30 23:27:00 [facility] ([id number][facility] CBC WITH DIFF 2021-08-30 23:27:00 Aufderheide, Gayatri [facility] N-TERMINAL PRO-BNP 2021-08-30 23:27:00 [facility] HB ECG ROUTINE & RHYTHM 2021-08-30 23:04:48 Gayatri [facility] ROUTINE & RHYTHM 2021-08-30 23:04:48 Gayatri Gu Un [facility] XR CHEST 1 VW 2021-08-30 00:31:51 Alvarez Austin [facility] POCT RAPID STREP SCREEN 2021-08-30 00:24:00 Alvarez Austin [facility] FOR GROUP A [facility] GALV ONLY - INFLUENZA A B 2021-08-30 00:15:00 [facility] Branch COVID-19 (MOLECULAR 2021-08-30 00:15:00 Alvarez Austin [facility] TESTING [facility] Branch NUCLEIC ACID AMPLIFICATION) PREALBUMIN, SERUM 2021-08-05 10:46:00 Cesar [facility] PHOSPHORUS 2021-08-05 10:46:00 Cesar [facility] ALBUMIN 2021-08-05 10:46:00 Cesar [facility] MAGNESIUM 2021-08-05 10:46:00 Cesar [facility] BASIC METABOLIC PANEL (NA, 2021-08-05 10:46:00 Jessica Guerrero [facility] K, CL, CO2, GLUCOSE, BUN, Medica l Branch CREATININE, CA) CBC WITH DIFF 2021-08-05 10:46:00 Cesar [facility] COVID-19 (ID NOW RAPID 2021-08-05 00:29:00 Jessica Guerrero [facility] Medical Branch PHOSPHORUS 2021-08-04 11:37:00 Hakeem Jo [facility] MAGNESIUM 2021-08-04 11:37:00 [facility] MET[facility]OLIC PANEL (NA, 2021-08-04 11:37:00 Hakeem Jo, [facility] [place] K, CL, CO2, GLUCOSE, BUN, [facility] CREATININE, CA) CBC WITH DIFF 2021-08-04 11:37:00 Hakeem Jo [facility] PHOSPHORUS 2021-08-03 10:36:00 Hakeem Jo [facility] MAGNESIUM 2021-08-03 10:36:00 [facility] BASIC METABOLIC PANEL (NA, 2021-08-03 10:36:00 Hakeem Jo, [facility] [place] K, CL, CO2, GLUCOSE, BUN, [facility] CREATININE, CA) CBC WITH DIFF 2021-08-03 10:36:00 Hakeem Jo [facility] PHOSPHORUS 2021-08-02 10:53:00 Hakeem Jo [facility] MAGNESIUM 2021-08-02 10:53:00 [facility] BASIC METABOLIC PANEL (NA, 2021-08-02 10:53:00 Hakeem Jo [facility] [place] K, CL, CO2, GLUCOSE, BUN, [facility] CREATININE, CA) CBC WITH DIFF 2021-08-02 10:53:00 Hakeem Jo [facility] PHOSPHORUS 2021-08-01 10:03:00 Hakeem Jo [facility] MAGNESIUM 2021-08-01 10:03:00 [facility] BASIC METABOLIC PANEL (NA, 2021-08-01 10:03:00 Hakeem Jo [facility] [place] K, CL, CO2, GLUCOSE, BUN, [facility] CREATININE, CA) CBC WITH DIFF 2021-08-01 10:03:00 Hakeem Jo [facility] PREALBUMIN, SERUM 2021-07-31 10:22:00 [facility] PHOSPHORUS 2021-07-31 10:22:00 Hakeem Jo [facility] MAGNESIUM 2021-07-31 10:22:00 [facility] BASIC METABOLIC PANEL (NA, 2021-07-31 10:22:00 [facility]akeem [facility], [facility], CL, CO2, GLUCOSE, BUN, [place] [facility] CREATININE, CA) CBC WITH DIFF 2021-07-31 10:22:00 Hakeem Jo [facility] COVID-19 (ID NOW RAPID 2021-07-30 06:13:00 NegritaJonah escoto [facility] TESTING) Medical Branch LAB ONLY COVID 2021-07-30 06:13:00 NegritaJonah escoto [facility] INTERPRETATION [facility] CT ABDOMEN PELVIS W 2021-07-30 05:19:01 NegritaJonah escoto [facility] CONTRAST [facility] COMP. METABOLIC PANEL 2021-07-30 03:25:00 Jonah Rees [facility] ([id number]) [facility] LACTIC ACID WHOLE BLOOD 2021-07-30 02:53:00 NegritaJonah escoto [facility] LIPASE 2021-07-30 02:52:00 NegritaJonah escoto [facility] CBC WITH DIFF 2021-07-30 02:52:00 NegritaJonah escoto [facility] CONSENT/REFUSAL FOR 2021-07-30 02:09:09 Doctor Unassigned, [facility] DIAGNOSIS AND TREATMENT [place] [facility] PHOSPHORUS 2021-07-26 12:30:00 Antonino Dietrich [facility] MAGNESIUM 2021-07-26 12:30:00 Antonino Dietrich [facility] BASIC METABOLIC PANEL (NA, 2021-07-26 12:30:00 [facility] [place] K, CL, CO2, GLUCOSE, BUN, [facility] CREATININE, CA) CBC WITH DIFF 2021-07-26 12:30:00 Antonino Dietrich [facility] PHOSPHORUS 2021-07-25 11:32:00 Hakeem Jo [facility] MAGNESIUM 2021-07-25 11:32:00 Hakeem Jo [facility] BASIC METABOLIC PANEL (NA, 2021-07-25 11:32:00 Antonino Dietrich de [facility] [place] K, CL, CO2, GLUCOSE, BUN, [facility] CREATININE, CA) CBC WITH DIFF 2021-07-25 11:32:00 Antonino jin [facility], [facility] Medical Bran h CBC WITH DIFF 2021-07-25 04:13:00 Cesar, [facility] PHOSPHORUS 2021-07-24 12:18:00 Cesar, [facility] MAGNESIUM 2021-07-24 12:18:00 Cesar, [facility] BASIC METABOLIC PANEL (NA, 2021-07-24 12:18:00 Cesar, Jessica [facility] [place] K, CL, CO2, GLUCOSE, BUN, Medica l Branch CREATININE, CA) COVID-19 (ID NOW RAPID 2021-07-23 15:23:00 Flaco Lemus [facility] TESTING) Medical Branch LAB ONLY COVID 2021-07-23 15:23:00 Flaco Lemus [facility] URINALYSIS 2021-07-23 12:49:00 Hakeem Jo [facility] PHOSPHORUS 2021-07-23 12:42:00 Hakeem Jo [facility] MAGNESIUM 2021-07-23 12:42:00 Hakeem Jo [facility] BASIC METABOLIC PANEL (NA, 2021-07-23 12:42:00 Hakeem Jo [facility] [place] K, CL, CO2, GLUCOSE, BUN, [facility] CREATININE, CA) CBC WITH DIFF 2021-07-23 12:42:00 Hakeem Jo [facility] CT ABDOMEN PELVIS WO 2021-07-23 08:55:17 Flaco Lemus [facility] EXTERNAL PROVIDER RECORDS 2021-06-25 05:01:00 Doctor Unassigned, [facility] [place] [facility] BASIC METABOLIC PANEL (NA, 2021-06-03 10:37:00 Shweta Anderson [facility] K, CL, CO2, GLUCOSE, BUN, Medica l Branch CREATININE, CA) BASIC METABOLIC PANEL (NA, 2021-06-02 10:54:00 Shweta Anderson [facility] K, CL, CO2, GLUCOSE, BUN, Medica l Branch CREATININE, CA) CLOSTRIDIUM DIFFICILE 2021-06-01 22:51:00 [facility] TOXIN [facility] FECAL PATHOGENS BY PCR 2021-06-01 22:51:00 JordonWilfrid [facility] BASIC METABOLIC PANEL (NA, 2021-06-01 15:42:00 Shweta Anderson [facility] K, CL, CO2, GLUCOSE, BUN, Medica l Branch CREATININE, CA) LACTIC ACID WHOLE BLOOD 2021-06-01 05:38:00 Clementine Castellon [facility] CT ABDOMEN PELVIS W 2021-05-31 23:25:45 Willie Garrett [facility] LIPASE 2021-05-31 22:44:00 Willie Garrett [facility] TROPONIN I 2021-05-31 22:44:00 Willie Garrett [facility] COMP. METABOLIC PANEL 2021-05-31 22:44:00 Willie Garrett [facility] ([id number]) [facility] Branch CBC WITH DIFF 2021-05-31 22:44:00 Willie Garrett [facility] COVID-19 (ID NOW RAPID 2021-05-31 22:44:00 Willie Garrett [facility] TESTING) Medical Branch LAB ONLY COVID 2021-05-31 22:44:00 Willie Garrett [facility] INTERPRETATION [facility] Branch PHOSPHORUS 2021-05-21 09:03:00 [facility] 2021-05-21 09:03:00 Cesar, Adil [facility] BASIC METABOLIC PANEL (NA, 2021-05-21 09:03:00 Agatha Noonan [facility] K, CL, CO2, GLUCOSE, BUN, Medica l Branch CREATININE, CA) CBC WITH DIFF 2021-05-21 09:03:00 Shaista Agatha [facility] XR KUB 2021-05-20 20:02:49 Andrzej [facility] LIPASE 2021-05-20 20:00:00 Andrzej [facility] COMP. METABOLIC PANEL 2021-05-20 20:00:00 Bernardo Donnelly [facility] ([id number]) Medical Branch CBC WITH DIFF 2021-05-20 20:00:00 Andrzej [facility] LACTIC ACID WHOLE BLOOD 2021-05-20 20:00:00 Andrzej [facility] COVID-19 (ID NOW RAPID 2021-05-20 20:00:00 Bernardo Donnelly [facility] TESTING) Medical Branch BASIC METABOLIC PANEL (NA, 2021-05-08 10:04:00 Rodrick Keane [facility] K, CL, CO2, GLUCOSE, BUN, Medica l Branch CREATININE, CA) CBC WITH DIFF 2021-05-08 10:04:00 Irene Lora [facility] XR KUB 2021-05-08 09:44:22 [facility]o [facility] XR ABDOMEN 1 VW 2021-05-08 05:32:36 Irene Lora [facility] CT ABDOMEN PELVIS W 2021-05-08 01:08:43 Alona Pérez [facility] CONTRAST [facility] Branch HEPATIC FUNCTION PANEL 2021-05-08 00:49:00 Alona Pérez [facility] ([id number]) (ALB,T.PRO,BILI Medical Branch T,BU/BC,ALT,AST,ALK PHOS) BASIC METABOLIC PANEL (NA, 2021-05-08 00:49:00 Alona Pérez [facility] K, CL, CO2, GLUCOSE, BUN, Medica l Branch CREATININE, CA) CBC WITH DIFF 2021-05-08 00:49:00 Short, [facility] Medical Branch COVID-19 (ID NOW RAPID 2021-05-08 00:42:00 Alona Pérez [facility] TESTING) Medical Branch LAB ONLY COVID 2021-05-08 00:42:00 Orchard [facility] INTERPRETATION Medical Branch NOTICE OF PRIVACY 2020-09-27 01:47:31 Doctor Unassigned, [facility] PRACTICES [place] [facility] CONSENT/REFUSAL FOR 2020-09-27 01:47:01 Doctor Unassigned, [facility] DIAGNOSIS AND TREATMENT [place] [facility] [place] BASIC METABOLIC PANEL (NA, 2020-08-23 10:03:00 Nataly [facility] K, CL, CO2, GLUCOSE, BUN, Medica l Branch CREATININE, CA) CBC WITHOUT DIFF 2020-08-23 10:03:[address] [facility] COVID-19 (ID NOW RAPID 2020-08-23 00:23:00 Funmilayo Pinzon [facility] TESTING) Medical Branch HB ECG ROUTINE & RHYTHM 2020-08-22 22:19:37 Funmilayo Pinzon [facility] STRIP [facility] HEPATIC FUNCTION PANEL 2020-08-22 22:08:00 Funmilayo Pinzon [facility] ([id number]) (ALB,T.PRO,BILI Medical Branch T,BU/BC,ALT,AST,ALK PHOS) BASIC METABOLIC PANEL (NA, 2020-08-22 22:08:00 Nallely Pinzon [facility] K, CL, CO2, GLUCOSE, BUN, Medica l Branch CREATININE, CA) CBC WITH DIFF 2020-08-22 22:08:00 Funmilayo Pinzon [facility] CT SOFT TISSUE NECK W 2020-07-10 00:21:10 Juan M Aguillon [facility] CONTRAST [facility] URINALYSIS 2020-07-09 23:07:[address] [facility] BASIC METABOLIC PANEL (NA, 2020-07-09 22:51:00 Kirk Aguillon [facility] K, CL, CO2, GLUCOSE, BUN, Medica l Branch CREATININE, CA) CBC WITH DIFF 2020-07-09 22:51:[address] [facility] RAPID STREP SCREEN FOR 2020-07-09 22:51:00 Juan M Aguillon [facility] GROUP A Medical Branch COVID-19 (ID NOW RAPID 2020-07-09 22:51:00 Juan M Aguillon [facility] TESTING) Medical Branch CT ABDOMEN PELVIS W 2020-06-05 13:02:55 Travis Valdez [facility] CONTRAST [facility] URINALYSIS 2020-06-05 13:02:00 More [facility] EKG-12 LEAD 2020-06-05 11:57:46 More [facility] LIPASE 2020-06-05 11:57:00 More [facility] TROPONIN I 2020-06-05 11:57:00 More [facility] HEPATIC FUNCTION PANEL 2020-06-05 11:57:00 More Goetz [facility] ([id number]) (ALB,T.PRO,BILI [facility] T,BU/BC,ALT,AST,ALK PHOS) BASIC METABOLIC PANEL (NA, 2020-06-05 11:57:00 More Goetz [facility] K, CL, CO2, GLUCOSE, BUN, Medica l Branch CREATININE, CA) CBC WITH DIFF 2020-06-05 11:57:00 More [facility] LACTIC ACID WHOLE BLOOD 2020-06-05 11:57:00 More Goetz [facility] PHOSPHORUS 2020-05-31 07:54:00 Patricia Katia Sandra [facility] MAGNESIUM 2020-05-31 07:54:00 Dongmoris, Katia Sandra [facility] BASIC METABOLIC PANEL (NA, 2020-05-31 07:54:00 Katia Gomez [facility] K, CL, CO2, GLUCOSE, BUN, Medica l Branch CREATININE, CA) CBC WITH DIFF 2020-05-31 07:54:00 Patricia Katia Sandra [facility] IR CHANGE OF ABSCESS DRAIN 2020-05-30 19:33:43 Ashwin Marshall [facility] PHOSPHORUS 2020-05-30 08:19:00 Lambreton Gonzales, [facility] MAGNESIUM 2020-05-30 08:19:00 Lambreton Gonzales, [facility] BASIC METABOLIC PANEL (NA, 2020-05-30 08:19:00 Lambreton Carlos a, [facility] K, CL, CO2, GLUCOSE, BUN, [facility] CREATININE, CA) PHOSPHORUS 2020-05-29 06:43:00 Lambreton Gonzales, [facility] MAGNESIUM 2020-05-29 06:43:00 Lambreton Gonzales, [facility] BASIC METABOLIC PANEL (NA, 2020-05-29 06:43:00 Lambreton Carlos a, [facility] K, CL, CO2, GLUCOSE, BUN, [facility] CREATININE, CA) PHOSPHORUS 2020-05-28 09:08:00 Lambreton Gonzales, [facility] MAGNESIUM 2020-05-28 09:08:00 Lambreton Gonzales, [facility] BASIC METABOLIC PANEL (NA, 2020-05-28 09:08:00 Lambreton Carlos a, [facility] K, CL, CO2, GLUCOSE, BUN, [facility] CREATININE, CA) PHOSPHORUS 2020-05-27 09:33:00 Lambreton Gonzales, [facility] MAGNESIUM 2020-05-27 09:33:00 Lambreton Gonzales, [facility] BASIC METABOLIC PANEL (NA, 2020-05-27 09:33:00 Lambreton Carlos a, [facility] K, CL, CO2, GLUCOSE, BUN, [facility] CREATININE, CA) PHOSPHORUS 2020-05-26 09:27:00 Lambreton Gonzales, [facility] MAGNESIUM 2020-05-26 09:27:00 Lambreton Gonzales, [facility] BASIC METABOLIC PANEL (NA, 2020-05-26 09:27:00 Lambreton Carlos a, [facility] K, CL, CO2, GLUCOSE, BUN, [facility] CREATININE, CA) PHOSPHORUS 2020-05-25 21:42:00 Lambangeloon Gonzales, [facility] MAGNESIUM 2020-05-25 21:42:00 [facility] BASIC METABOLIC PANEL (NA, 2020-05-25 21:42:00 Lambangeloon Carlos a, [facility] K, CL, CO2, GLUCOSE, BUN, [facility] CREATININE, CA) CBC WITH DIFF 2020-05-25 21:42:00 [facility]aima [facility] XR KUB 2020-05-25 20:39:54 [facility] PHOS[facility]US 2020-05-25 08:48:00 Lambreton Gonzales, [facility] MAGNESIUM 2020-05-25 08:48:00 Lambreton Gonzales, [facility] BASIC METABOLIC PANEL (NA, 2020-05-25 08:48:00 Lambangeloon Carlos a, [facility] K, CL, CO2, GLUCOSE, BUN, [facility] CREATININE, CA) PHOSPHORUS 2020-05-24 20:41:00 Lambangeloon Gonzales, [facility] MAGNESIUM 2020-05-24 20:41:00 Lambreton Gonzales, [facility] BASIC METABOLIC PANEL (NA, 2020-05-24 20:41:00 Lambangeloon Carlos a, [facility] K, CL, CO2, GLUCOSE, BUN, [facility] CREATININE, CA) IR CHANGE OF ABSCESS DRAIN 2020-05-24 17:57:11 [facility] IR ASPIRATION ABSCESS 2020-05-24 17:24:40 Julio Tolentino [facility] BULLA OR CYST BY NEEDLE [facility] ASPIRATE OR ABSCESS 2020-05-24 17:23:00 Nixon Prince [facility] CULTURE(AEROBIC/ANAEROBIC) Medic al Branch CBC WITH DIFF 2020-05-24 11:08:00 Sumeet [facility] CT ABDOMEN PELVIS W 2020-05-23 15:02:24 Randa [facility] CONTRAST Medical Branch BASIC METABOLIC PANEL (NA, 2020-05-23 09:45:00 [facility], CL, CO2, GLUCOSE, BUN, [facility] CREATININE, CA) COVID-19 (PCR MOLECULAR 2020-05-23 06:53:00 Bia Pedro [facility] TESTING) Medical Branch URINALYSIS 2020-05-22 21:41:00 [facility] LIPASE 2020-05-22 21:26:00 [facility] 2020-05-22 21:26:00 Lopez, Kygeri [facility] ([id number]) (ALB,T.PRO,BILI Medical Branch T,BU/BC,ALT,AST,ALK PHOS) BASIC METABOLIC PANEL (NA, 2020-05-22 21:26:00 Alex Lopez [facility] K, CL, CO2, GLUCOSE, BUN, Medica l Branch CREATININE, CA) CBC WITH DIFF 2020-05-22 21:26:00 Lopez, [facility] PROTHROMBIN TIME / INR 2020-05-22 21:26:00 Alex Lopez [facility] ACTIVATED PARTIAL THRMPLAS 2020-05-22 21:26:00 Alex Lopez [facility] SELENA [facility] XR CHEST 1 VW 2020-05-22 20:55:00 Colette Kygeri [facility] HOSPITAL ADMISSION 2020-05-22 05:01:00 Doctor Unassigned, [facility] [place] Medical [facility] URINALYSIS 2020-05-20 09:58:00 Jonah Rodriguez [facility] Medical [place] COVID-19 (ID NOW RAPID 2020-05-20 09:48:00 Jonah Rodriguez [facility] TESTING) Medical Branch CT ABDOMEN PELVIS W 2020-05-20 04:07:43 Jonah Rodriguez [facility] Medical Branch LIPASE 2020-05-20 03:09:00 [facility] MAGNESIUM 2020-05-20 03:09:00 Stevan[facility]ly [facility] TROPONIN I 2020-05-20 03:09:00 [facility] COMP. METABOLIC PANEL 2020-05-20 03:09:[address] [facility] ([id number] CBC WITH DIFF 2020-05-20 03:09:00 [facility] PHOSPHORUS 2020-05-10 09:13:00 [facility] 2020-05-10 09:13:00 [facility] BASIC METABOLIC PANEL (NA, 2020-05-10 09:13:00 Randa Julio [facility] K, CL, CO2, GLUCOSE, BUN, Medica l Branch CREATININE, CA) CBC WITH DIFF 2020-05-10 09:13:00 Randa [facility] PHOSPHORUS 2020-05-09 10:28:00 [facility]UM 2020-05-09 10:28:00 [facility] BASIC METABOLIC PANEL (NA, 2020-05-09 10:28:00 Randa [facility] K, CL, CO2, GLUCOSE, BUN, Medica l Branch CREATININE, CA) CBC WITH DIFF 2020-05-09 10:28:00 Randa [facility] PHOSPHORUS 2020-05-08 11:18:00 [facility] MAG[facility]UM 2020-05-08 11:18:00 [facility] BASIC METABOLIC PANEL (NA, 2020-05-08 11:18:00 Randa [facility] K, CL, CO2, GLUCOSE, BUN, Medica l Branch CREATININE, CA) CBC WITH DIFF 2020-05-08 11:18:00 [facility] PH[facility] 2020-05-07 09:21:00 [facility] MAG[facility]UM 2020-05-07 09:21:00 Randa [facility] BASIC METABOLIC PANEL (NA, 2020-05-07 09:21:00 [facility] K, CL, CO2, GLUCOSE, BUN, Medica l Branch CREATININE, CA) CBC WITH DIFF 2020-05-07 09:21:00 Randa [facility] PHOSPHORUS 2020-05-06 09:57:00 Randa [facility] MAGNESIUM 2020-05-06 09:57:00 [facility] BASIC METABOLIC PANEL (NA, 2020-05-06 09:57:00 [facility] K, CL, CO2, GLUCOSE, BUN, Medica l Branch CREATININE, CA) CBC WITH DIFF 2020-05-06 09:56:00 Randa [facility] IR DRAINAGE BY CATHETER 2020-05-05 19:55:00 [facility] PERIT[facility] OR Medical Branch RETROPERITONEAL BODY FLUID 2020-05-05 19:06:00 Nixon Prince [facility] CULTURE(AEROBIC/ANAEROBIC) [facility] FUNGUS (ROUTINE) CULTURE 2020-05-05 19:06:00 Nixon Prince [facility] BODY FLUID 2020-05-05 19:00:00 [facility] CULT[facility]EROBIC/ANAEROBIC) [facility] FUNGUS (ROUTINE) CULTURE 2020-05-05 19:00:00 Ivan [facility] PREPARE PACKED RBC 2020-05-05 15:59:33 [facility] HB ABO GROUPING 2020-05-05 10:55:00 Hakeem Jo [facility] PREALBUMIN, SERUM 2020-05-05 08:56:00 Randa [facility] PHOSPHORUS 2020-05-05 08:56:00 Randa [facility] MAGNESIUM 2020-05-05 08:56:00 Randa [facility] BASIC METABOLIC PANEL (NA, 2020-05-05 08:56:00 [facility] K, CL, CO2, GLUCOSE, BUN, Medica l Branch CREATININE, CA) CBC WITH DIFF 2020-05-05 08:56:00 [facility] URINALYSIS 2020-05-05 05:11:[address] [facility] CT ABDOMEN PELVIS W 2020-05-05 04:18:56 Lora Hall [facility] LIPASE 2020-05-05 02:35:[address] [facility] COMP. METABOLIC PANEL 2020-05-05 02:35:00 Lora Hall [facility] ([id number]) [facility] CBC WITH DIFF 2020-05-05 02:35:[address] [facility] COVID-19 (ID NOW RAPID 2020-05-05 02:27:00 Lora Hall [facility] TESTING) [facility] HOSPITAL ADMISSION 2020-05-04 05:01:00 Doctor Unassigned, [facility] [place] [facility] Branch CBC WITH DIFF 2020-05-01 11:32:00 [facility] 2020-05-01 11:32:00 [facility] MAGNES[facility]UM 2020-05-01 11:32:00 [facility] BASIC METABOLIC PANEL (NA, 2020-05-01 11:32:00 Randa [facility] K, CL, CO2, GLUCOSE, BUN, Medica l Branch CREATININE, CA) CBC WITH DIFF 2020-04-29 11:31:00 [facility] PH[facility]US 2020-04-29 11:31:00 [facility] MAGN[facility]UM 2020-04-29 11:31:00 [facility] BASIC METABOLIC PANEL (NA, 2020-04-29 11:31:00 Randa [facility] K, CL, CO2, GLUCOSE, BUN, Medica l Branch CREATININE, CA) CBC WITH DIFF 2020-04-28 08:51:00 Becky [facility] MAGNESIUM 2020-04-28 08:51:00 Becky [facility] BASIC METABOLIC PANEL (NA, 2020-04-28 08:51:00 Becky [facility] K, CL, CO2, GLUCOSE, BUN, Cathryn [facility] CREATININE, CA) CBC WITH DIFF 2020-04-27 09:34:00 Becky, [facility] MAGNESIUM 2020-04-27 09:34:00 Becky, [facility] BASIC METABOLIC PANEL (NA, 2020-04-27 09:34:00 Becky, [facility] K, CL, CO2, GLUCOSE, BUN, [facility] CREATININE, CA) CBC WITH DIFF 2020-04-26 09:27:00 Becky, [facility] MAGNESIUM 2020-04-26 09:27:00 Becky, [facility] BASIC METABOLIC PANEL (NA, 2020-04-26 09:27:00 Becky, [facility] K, CL, CO2, GLUCOSE, BUN, [facility] CREATININE, CA) CBC WITH DIFF 2020-04-25 08:59:00 Becky, [facility] MAGNESIUM 2020-04-25 08:59:00 Becky, [facility] BASIC METABOLIC PANEL (NA, 2020-04-25 08:59:00 Becky, [facility] K, CL, CO2, GLUCOSE, BUN, [facility] CREATININE, CA) CBC WITH DIFF 2020-04-24 09:44:00 Becky, [facility] MAGNESIUM 2020-04-24 09:44:00 Becky, [facility] BASIC METABOLIC PANEL (NA, 2020-04-24 09:44:00 Becky, [facility] K, CL, CO2, GLUCOSE, BUN, [facility] CREATININE, CA) CT ABDOMEN PELVIS W 2020-04-23 23:24:02 Grant Cheema, [facility] CONTRAST [facility] CT THORAX W CONTRAST 2020-04-23 23:24:02 Grant Cheema, [facility] COVID-19 (ID NOW RAPID 2020-04-23 15:06:00 Grant Cheema, [facility] TESTING) [facility] PREALBUMIN, SERUM 2020-04-23 13:42:00 Abebe Kilgore [facility] POTASSIUM SERUM 2020-04-23 13:42:00 Becky [facility] CBC WITH DIFF 2020-04-23 10:17:00 Becky, [facility] MAGNESIUM 2020-04-23 10:17:00 Becky, [facility] BASIC METABOLIC PANEL (NA, 2020-04-23 10:17:00 Becky, [facility] K, CL, CO2, GLUCOSE, BUN, [facility] CREATININE, CA) XR CHEST 1 VW 2020-04-23 10:03:00 Becky, [facility] MAGNESIUM 2020-04-22 10:37:00 Becky, [facility] BASIC METABOLIC PANEL (NA, 2020-04-22 10:37:00 Becky, [facility] K, CL, CO2, GLUCOSE, BUN, [facility] CREATININE, CA) CBC WITH DIFF 2020-04-22 10:30:00 Becky [facility] XR CHEST 1 VW 2020-04-22 07:30:00 Becky, [facility] CBC WITH DIFF 2020-04-21 13:09:00 Becky, [facility] MAGNESIUM 2020-04-21 13:09:00 Becky, [facility] BASIC METABOLIC PANEL (NA, 2020-04-21 13:09:00 Becky, [facility] K, CL, CO2, GLUCOSE, BUN, Cathryn [facility] CREATININE, CA) XR CHEST 1 VW 2020-04-21 06:41:00 Grant Cheema [facility] XR CHEST 1 VW 2020-04-20 11:03:41 Grant Cheema [facility] CBC WITH DIFF 2020-04-20 09:45:00 Yosvany Herndon [facility] PREALBUMIN, SERUM 2020-04-20 09:45:00 Grant Cheema [facility] PHOSPHORUS 2020-04-20 09:45:00 Carola [facility] MAGNESIUM 2020-04-20 09:45:00 Katrina [facility] BASIC METABOLIC PANEL (NA, 2020-04-20 09:45:00 Yosvany Herndon [facility] K, CL, CO2, GLUCOSE, BUN, Medica l Branch CREATININE, CA) XR CHEST 1 2020-04-19 10:13:45 [facility] WITH DIFF 2020-04-19 10:10:00 Katrina [facility] PHOSPHORUS 2020-04-19 10:10:00 Carola [facility] MAGNESIUM 2020-04-19 10:10:00 Katrina [facility] BASIC METABOLIC PANEL (NA, 2020-04-19 10:10:00 Katrina Yosvany [facility] K, CL, CO2, GLUCOSE, BUN, Medica l Branch CREATININE, CA) XR CHEST 1 2020-04-18 11:01:[address] [facility] CBC WITH DIFF 2020-04-18 10:19:00 Katrina [facility] PHOSPHORUS 2020-04-18 10:19:00 Carola [facility] MAGNESIUM 2020-04-18 10:19:00 Katrina [facility] BASIC METABOLIC PANEL (NA, 2020-04-18 10:19:00 [facility]any Herndon [facility] K, CL, CO2, GLUCOSE, BUN, Medica l Branch CREATININE, CA) XR CHEST 1 2020-04-17 18:58:00 Becky [facility] CBC WITH DIFF 2020-04-17 09:33:00 Katrina [facility] PHOSPHORUS 2020-04-17 09:33:00 Carola [facility] MAGNESIUM 2020-04-17 09:33:00 Katrina [facility] BASIC METABOLIC PANEL (NA, 2020-04-17 09:33:00 Yosvany Herndon [facility] K, CL, CO2, GLUCOSE, BUN, [facility] CREATININE, CA) XR CHEST 1 VW 2020-04-17 08:52:00 Grant Cheema [facility] XR CHEST 1 VW 2020-04-16 23:45:00 Rivera [facility] BODY FLUID 2020-04-16 21:50:00 Rivera [facility] CULTURE(AEROBIC/ANAEROBIC) [facility] FUNGUS (ROUTINE) CULTURE 2020-04-16 21:50:00 Rivera [facility] CYTO PLEURAL FLUID 2020-04-16 21:50:00 Rivera [facility] LDH TOTAL BODY FLUID 2020-04-16 21:50:00 Rivera [facility] AMYLASE BODY FLUID 2020-04-16 21:50:00 Rivera [facility] GLUCOSE BODY FLUID 2020-04-16 21:50:00 Rivera [facility] PH, BODY FLUID 2020-04-16 21:50:00 Rivera [facility] T.PROTEIN BODY FLUID 2020-04-16 21:50:00 Rivera [facility] BODY FLUID DIRECT COUNT 2020-04-16 21:50:00 Rivera [facility] IR PLEURAL DRAINAGE WITH 2020-04-16 21:36:25 Rosaura Pena [facility] TUBE WITH IMAGING [facility] PROTHROMBIN TIME / INR 2020-04-16 16:07:00 Rosaura Pena [facility] CBC WITH DIFF 2020-04-16 10:07:00 [facility]OS[facility]US 2020-04-16 10:07:00 Sabi Srivastava [facility] MAGNESIUM 2020-04-16 10:07:00 Katrina [facility] BASIC METABOLIC PANEL (NA, 2020-04-16 10:07:00 Yosvany Herndon [facility] K, CL, CO2, GLUCOSE, BUN, Medica l Branch CREATININE, CA) CT ABDOMEN PELVIS W 2020-04-16 07:02:21 Grant Cheema [facility] CONTRAST [facility] CBC WITH DIFF 2020-04-15 10:02:00 Katrina [facility] PHOSPHORUS 2020-04-15 10:02:00 [facility] MAGNESIUM 2020-04-15 10:02:00 Katrina [facility] BASIC METABOLIC PANEL (NA, 2020-04-15 10:02:00 Yosvany Herndon [facility] K, CL, CO2, GLUCOSE, BUN, Medica l Branch CREATININE, CA) CBC WITH DIFF 2020-04-14 10:26:00 Katrina [facility] PHOSPHORUS 2020-04-14 10:26:00 [facility] MAGNESIUM 2020-04-14 10:26:00 Katrina [facility] BASIC METABOLIC PANEL (NA, 2020-04-14 10:26:00 Yosvany Herndon [facility] K, CL, CO2, GLUCOSE, BUN, Medica l Branch CREATININE, CA) BASIC METABOLIC PANEL (NA, 2020-04-13 23:53:00 Grant Santana i, [facility] K, CL, CO2, GLUCOSE, BUN, Danny Medica l Branch CREATININE, CA) CBC WITHOUT DIFF 2020-04-13 23:53:00 Grant Cheema [facility] IR DRAINAGE BY CATHETER 2020-04-13 20:35:08 Grant Cheema [facility] PERITONEAL OR [facility] RETROPERITONEAL BODY FLUID 2020-04-13 20:05:00 Neris Grier [facility] CULTURE(AEROBIC/ANAEROBIC) Medic al Branch LDH TOTAL BODY FLUID 2020-04-13 20:05:00 Grant Cheema [facility] GLUCOSE BODY FLUID 2020-04-13 20:05:00 Grant Cheema [facility] T.PROTEIN BODY FLUID 2020-04-13 20:05:00 Grant Cheema [facility] BODY FLUID DIRECT COUNT 2020-04-13 20:05:00 [facility] CBC WITH DIFF 2020-04-13 10:44:00 Katrina [facility] PHOSPHORUS 2020-04-13 10:44:00 [facility] MAGNESIUM 2020-04-13 10:44:00 Katrina [facility] BASIC METABOLIC PANEL (NA, 2020-04-13 10:44:00 [facility], CL, CO2, GLUCOSE, BUN, Medica l Branch CREATININE, CA) CT ABDOMEN PELVIS W 2020-04-12 21:23:19 Grant Cheema, [facility] URINALYSIS 2020-04-12 20:43:00 Becky [facility] URINE CULTURE 2020-04-12 20:43:00 Becky [facility] BLOOD CULTURE WORKUP 2020-04-12 18:51:00 Rosaura Pena [facility] GRAM NEGATIVE BLOOD 2020-04-12 18:51:00 Rosaura Pena [facility] PATHOGENS DNA [facility] PROBE-ANAEROBIC BLOOD CULTURE SCREEN 2020-04-12 18:51:00 Rosaura Pena [facility] BLOOD CULTURE SCREEN 2020-04-12 18:50:00 [facility] CBC WITH DIFF 2020-04-12 08:46:00 Katrina [facility] PHOSPHORUS 2020-04-12 08:46:00 [facility] MAGNESIUM 2020-04-12 08:46:00 Katrina [facility] BASIC METABOLIC PANEL (NA, 2020-04-12 08:46:00 Yosvany Herndon U [facility] K, CL, CO2, GLUCOSE, BUN, Medica l Branch CREATININE, CA) CBC WITH DIFF 2020-04-11 08:54:00 Katrina [facility] PHOSPHORUS 2020-04-11 08:54:00 Car[facility] MAGNESIUM 2020-04-11 08:54:00 Katrina [facility] BASIC METABOLIC PANEL (NA, 2020-04-11 08:54:00 Yosvany Herndon [facility] K, CL, CO2, GLUCOSE, BUN, Medica l Branch CREATININE, CA) CBC WITH DIFF 2020-04-10 09:49:00 Katrina [facility] PHOSPHORUS 2020-04-10 09:49:00 Car[facility] MAGNESIUM 2020-04-10 09:49:00 Katrina [facility] XR CHEST 1 VW 2020-04-09 11:27:00 [facility] CBC WITH DIFF 2020-04-09 09:07:00 Katrina [facility] PHOSPHORUS 2020-04-09 09:07:00 Car[facility] MAGNESIUM 2020-04-09 09:07:00 Katrina [facility] HEPATIC FUNCTION PANEL 2020-04-09 09:07:00 [facility] ([id number] (ALB,T.PRO,[facility] T,BU/BC,ALT,AST,ALK PHOS) BASIC METABOLIC PANEL (NA, 2020-04-09 09:07:00 Yosvany Herndon [facility] K, CL, CO2, GLUCOSE, BUN, Medica l Branch CREATININE, CA) AC PANEL 20 + LACTIC ACID 2020-04-08 21:11:00 Yosvany Herndon Un [facility] POCT GLUCOSE (AUTOMATED) 2020-04-08 12:27:00 Bia Pedro [facility] AC PANEL 21 + LACTIC ACID 2020-04-08 09:34:00 Bigg [place] [facility] POCT GLUCOSE (AUTOMATED) 2020-04-08 09:33:00 Bia Pedro [facility] CBC WITH DIFF 2020-04-08 09:26:00 Katrina, [facility] MAGNESIUM 2020-04-08 09:26:00 Katrina [facility] BASIC METABOLIC PANEL (NA, 2020-04-08 09:26:00 Yosvany Herndon [facility] K, CL, CO2, GLUCOSE, BUN, Medica l Branch CREATININE, CA) POCT GLUCOSE (AUTOMATED) 2020-04-08 04:24:00 Phatak, [facility] ([facility]OMATED) 2020-04-08 00:36:00 Phatak, [facility] POCT GLUCOSE (AUTOMATED) 2020-04-07 21:24:00 Phatak, Bia Uni [facility] POCT GLUCOSE (AUTOMATED) 2020-04-07 16:49:00 Phadmitrik, Bia Uni [facility] AC PANEL 20 + LACTIC ACID 2020-04-07 14:14:00 Yosvany Herndon [facility] LACTIC ACID WHOLE BLOOD 2020-04-07 13:53:00 [facility] POCT GLUCOSE (AUTOMATED) 2020-04-07 12:50:00 Phadmitrik Bia [facility] AC PANEL 20 + LACTIC ACID 2020-04-07 11:16:00 Yosvany Herndon [facility] MAGNESIUM 2020-04-07 08:48:00 Katrina [facility] BASIC METABOLIC PANEL (NA, 2020-04-07 08:48:00 Yosvany Herndon [facility] K, CL, CO2, GLUCOSE, BUN, Medica l Branch CREATININE, CA) CBC WITH DIFF 2020-04-07 08:48:00 Katrina [facility] XR CHEST 1 VW 2020-04-07 08:10:[address] [facility] POCT GLUCOSE (AUTOMATED) 2020-04-07 04:36:00 Phatak, Bia Uni [facility] AC PANEL 21 + LACTIC ACID 2020-04-07 02:05:00 Bigg Lawton [facility] MRSA / MSSA SCREEN BY PCR, 2020-04-07 02:05:00 Grant Santana i, [facility] BLOOD CULTURE SCREEN 2020-04-07 02:05:00 Grant Cheema [facility] POCT GLUCOSE (AUTOMATED) 2020-04-07 00:37:00 Bia Pedro [facility] HCV ANTIBODY 2020-04-06 23:44:00 Grant Cheema [facility] POCT GLUCOSE (AUTOMATED) 2020-04-06 23:43:00 Bia Pedro [facility] HIV 1/2 AG-AB WITH REFLEX 2020-04-06 23:30:00 Grant Cheema [facility] POCT GLUCOSE (AUTOMATED) 2020-04-06 22:14:00 Bia Pedro [facility] ECHO ROUTINE W/DOPPLER 2020-04-06 20:25:55 [facility] PROTHROMBIN TIME / INR 2020-04-06 19:00:00 Rosaura Pena [facility] ACTIVATED PARTIAL THRMPLAS 2020-04-06 19:00:00 Becky [facility] MAGNESIUM 2020-04-06 19:00:00 [facility] BASIC METABOLIC PANEL (NA, 2020-04-06 19:00:00 [facility], CL, CO2, GLUCOSE, BUN, [facility] CREATININE, CA) COMP. METABOLIC PANEL 2020-04-06 19:00:00 Yosvany Herndon [facility] ([id number]) [facility] CBC WITH DIFF 2020-04-06 19:00:00 Yosvany Herndon [facility] AC PANEL 21 + LACTIC ACID 2020-04-06 18:59:00 Simi Dennis [facility] ABG+COOX+NA+K+GLU+CA2+ 2020-04-06 16:06:00 Bia Pedro [facility] INTUBATION 2020-04-06 16:04:[address] [facility] XR CHEST 1 VW 2020-04-06 15:43:00 Yosvany Herndon [facility] SURGICAL PATHOLOGY EXAM 2020-04-06 15:12:00 Person, [facility] CENTRAL LINE 2020-04-06 14:52:37 Cynthia Herring [facility] E [facility] ARTERIAL LINE 2020-04-06 14:51:[address] [facility] ASPIRATE OR ABSCESS 2020-04-06 14:50:29 Person, [facility] CULTURE(AEROBIC/ANAEROBIC) Medic al Branch [employer] CULTURE 2020-04-06 14:50:29 Person, [facility] FUNGUS (ROUTINE) CULTURE 2020-04-06 14:50:29 Person, [facility] ABG+COOX+NA+K+GLU+CA2+ 2020-04-06 14:46:00 Bia Pedro [facility] HB ABO GROUPING 2020-04-06 14:39:00 Tru Sampsonammed [facility] EXPLORATORY LAPAROTOMY 2020-04-06 13:51:00 Person, [facility] URINE CULTURE 2020-04-06 13:48:00 Grant Cheema [facility] XR KUB 2020-04-06 13:34:22 Grant Cheema [facility] XR CHEST 1 VW 2020-04-06 13:34:22 Grant Cheema [facility] MAGNESIUM 2020-04-06 11:47:00 Becky [facility] BASIC METABOLIC PANEL (NA, 2020-04-06 11:47:00 Becky [facility] K, CL, CO2, GLUCOSE, BUN, [facility] CREATININE, CA) CBC WITH DIFF 2020-04-06 11:47:00 Becky [facility] XR KUB 2020-04-05 21:34:47 Grant Cheema [facility] XR KUB 2020-04-05 19:41:00 Grant Cheema [facility] MAGNESIUM 2020-04-05 09:44:00 Becky [facility] BASIC METABOLIC PANEL (NA, 2020-04-05 09:44:00 Bekcy [facility] K, CL, CO2, GLUCOSE, BUN, Cathryn [facility]ica [facility] CREATININE, CA) CBC WITH DIFF 2020-04-05 09:44:00 Becky [facility] MAGNESIUM 2020-04-04 10:09:00 Becky [facility] BASIC METABOLIC PANEL (NA, 2020-04-04 10:09:00 Becky [facility] K, CL, CO2, GLUCOSE, BUN, Cathryn [facility] CREATININE, CA) CBC WITH DIFF 2020-04-04 10:09:00 Becky [facility] SURGICAL PATHOLOGY EXAM 2020-04-03 20:13:00 Mayela [facility] LAPAROSCOPIC COLECTOMY 2020-04-03 15:35:00 Mayela [facility] COLONOSCOPY 2020-04-03 15:35:00 Mayela [facility] COLECTOMY 2020-04-03 15:35:00 Mayela [facility] MAGNESIUM 2020-04-03 09:20:00 Becky [facility] BASIC METABOLIC PANEL (NA, 2020-04-03 09:20:00 Becky [facility] K, CL, CO2, GLUCOSE, BUN, Cath[facility] CREATININE, CA) CBC WITH DIFF 2020-04-03 09:20:00 Becky [facility] HB ABO GROUPING 2020-04-02 22:45:[address] [facility] MAGNESIUM 2020-04-02 10:22:00 Becky [facility] BASIC METABOLIC PANEL (NA, 2020-04-02 10:22:00 Becky [facility] K, CL, CO2, GLUCOSE, BUN, [facility] CREATININE, CA) CBC WITH DIFF 2020-04-02 10:22:00 Becky [facility] COVID-19 (ID NOW RAPID 2020-04-01 23:02:00 Rosaura Pena [facility] TESTING) [facility] URINALYSIS 2020-03-31 11:25:00 Alex Lopez [facility] CT ABDOMEN PELVIS W 2020-03-31 00:17:06 Alex Lopez [facility] CONTRAST [facility] XR CHEST 1 VW 2020-03-30 22:43:49 Colette [facility] EKG-12 LEAD 2020-03-30 22:14:24 Doctor Unassigned, [facility] [place] [facility] PROTHROMBIN TIME / INR 2020-03-30 22:05:00 Alex Lopez [facility] ACTIVATED PARTIAL THRMPLAS 2020-03-30 22:05:00 Alex Lopez [facility] N-TERMINAL PRO-BNP 2020-03-30 22:05:00 Alex [facility] LIPASE 2020-03-30 22:05:00 Colette Kygeri [facility] TROPONIN I 2020-03-30 22:05:00 Colette Kygeri [facility] HEPATIC FUNCTION PANEL 2020-03-30 22:05:00 Alex Lopez [facility] ([id number]) (ALB,T.PRO,BILI [facility] T,BU/BC,ALT,AST,ALK PHOS) BASIC METABOLIC PANEL (NA, 2020-03-30 22:05:00 Alex Lopez [facility] K, CL, CO2, GLUCOSE, BUN, [facility] CREATININE, CA) CBC WITH DIFF 2020-03-30 22:05:00 Alex Lopez [facility] EKG-12 LEAD 2020-03-30 22:01:44 Colette Kygeri [facility] HOSPITAL ADMISSION 2020-03-30 05:01:00 Doctor Unassigned, [facility] [place] [facility] MAGNESIUM 2020-03-26 09:57:00 Simin [facility] BASIC METABOLIC PANEL (NA, 2020-03-26 09:57:00 Simin, [facility] K, CL, CO2, GLUCOSE, BUN, Med[facility] l [facility] CREATININE, CA) CBC WITH DIFF 2020-03-26 09:57:00 Simin [facility] LACTIC ACID WHOLE BLOOD 2020-03-26 04:09:00 [facility] (ID NOW RAPID 2020-03-26 02:01:00 Bernardo Donnelly [facility] TESTING) Medical [place] ABDOMEN PELVIS W 2020-03-26 01:17:18 Andrzej [facility] CONTRAST [facility] PHOSPHORUS 2020-03-26 00:39:00 Simin [facility] MAGNESIUM 2020-03-26 00:39:00 Simin [facility] HEPATIC FUNCTION PANEL 2020-03-26 00:39:00 Bernardo Donnelly [facility] ([id number]) [facility],BU/BC,ALT,AST,ALK PHOS) BASIC METABOLIC PANEL (NA, 2020-03-26 00:39:00 Bernardo Donnelly [facility] K, CL, CO2, GLUCOSE, BUN, Medica [facility] Branch CREATININE, CA) CBC WITH DIFF 2020-03-26 00:39:00 Bernardo Donnelly [facility] EXTRA TUBE LT. BLUE 2020-03-26 00:39:00 Bernardo Donnelly [facility] HOSPITAL ADMISSION 2020-03-25 05:01:00 Doctor Unassigned, [facility] [place] [facility] PROTHROMBIN TIME / INR 2020-03-03 04:27:00 Ori Persaud [facility] ACTIVATED PARTIAL THRMPLAS 2020-03-03 04:27:00 Zahraa Persaud se [facility] XR ABDOMEN ACUTE SERIES 2020-03-03 02:15:00 Sabi Begum [facility] PHOSPHORUS 2020-03-03 01:22:00 Ori Persaud [facility] MAGNESIUM 2020-03-03 01:22:00 Ori Persaud [facility] HEPATIC FUNCTION PANEL 2020-03-03 01:22:00 Sabi Begum [facility] ([id number]) (ALB,T.PRO,BILI [facility] [place] T,BU/BC,ALT,AST,ALK PHOS) BASIC METABOLIC PANEL (NA, 2020-03-03 01:22:00 Sabi Begum [facility] K, CL, CO2, GLUCOSE, BUN, Medica [facility] Branch CREATININE, CA) CBC WITH DIFFERENTIAL 2020-03-03 01:22:00 [facility]i [facility] URINALYSIS 2020-03-03 01:22:00 Shy [facility] LACTIC ACID WHOLE BLOOD 2020-03-03 01:22:00 Shy [facility] COVID-19 (ID NOW RAPID 2020-03-03 01:22:00 Shy [facility] TESTING) [facility] GALV/CLC ONLY - URINE DRUG 2020-02-27 20:02:00 [facility] (IMMUNOASSAY) - [facility] COMPREHENSIVE DRUG SCREEN FREE T4 2020-02-27 17:48:00 [facility] THYROID STIMULATING 2020-02-27 17:48:00 [facility] HORMONE [facility] FREE T3 2020-02-27 17:48:[address] [facility] [address] ABDOMEN PELVIS W 2020-02-26 18:27:28 Alondra Fay [facility] CONTRAST [place] [facility] COVID-19 (ID NOW RAPID 2020-02-26 06:41:00 Shy [facility] TESTING) [facility] XR ABDOMEN ACUTE SERIES 2020-02-26 04:48:30 Sabi Begum [facility] LIPASE 2020-02-26 03:35:00 Shy [facility] HEPATIC FUNCTION PANEL 2020-02-26 03:35:00 Sabi Begum [facility] ([id number]) ([facility] T,BU/BC,ALT,AST,ALK PHOS) BASIC METABOLIC PANEL (NA, 2020-02-26 03:35:00 Begum, [facility] K, CL, CO2, GLUCOSE, BUN, Medica l Branch CREATININE, CA) CBC WITH DIFFERENTIAL 2020-02-26 03:35:00 Begum [facility] LACTIC ACID WHOLE BLOOD 2020-02-26 03:35:00 Begum, [facility] EXTRA TUBE LT. BLUE 2020-02-26 03:35:00 Begum, [facility] MAGNESIUM 2020-02-03 16:38:00 Simin, [facility] BASIC METABOLIC PANEL (NA, 2020-02-03 16:38:00 [facility], [facility] K, CL, CO2, GLUCOSE, BUN, Med[facility] CREATININE, CA) XR KUB 2020-01-31 16:59:00 Helene [facility] BASIC METABOLIC PANEL (NA, 2020-01-31 06:15:00 Kirill Henson [facility] K, CL, CO2, GLUCOSE, BUN, Med[facility] Branch CREATININE, CA) CBC WITH DIFFERENTIAL 2020-01-31 06:15:00 Kirill [facility] BASIC METABOLIC PANEL (NA, 2020-01-29 10:06:00 Ingram, [facility] K, CL, CO2, GLUCOSE, BUN, Med[facility] CREATININE, CA) CBC WITH DIFFERENTIAL 2020-01-29 10:06:00 [facility] (PCR MOLECULAR 2020-01-29 03:56:00 Liz [facility] TESTING) [facility] LACTIC ACID WHOLE BLOOD 2020-01-29 03:55:00 Bernardo Donnelly [facility] EXTRA TUBE LAV 2020-01-29 03:55:00 Liz Pending [facility] EXTRA TUBE LT. BLUE 2020-01-29 03:55:00 Liz [facility] EXTRA TUBE LT. GREEN 2020-01-29 03:55:[address] [facility] URINALYSIS 2020-01-29 01:35:[address] [facility] COVID-19 (ID NOW RAPID 2020-01-29 01:32:00 Bernardo Donnelly [facility] TESTING) Medical Branch CT ABDOMEN PELVIS W 2020-01-28 23:53:23 [place]Silvia [facility] CONTRAST [facility] LIPASE 2020-01-28 23:19:00 [place] [facility] HEPATIC FUNCTION PANEL 2020-01-28 23:19:00 [facility] ([id number]) ([facility] T,BU/BC,ALT,AST,ALK PHOS) BASIC METABOLIC PANEL (NA, 2020-01-28 23:19:00 [facility] K, CL, CO2, GLUCOSE, BUN, Med[facility] Branch CREATININE, CA) CBC WITH DIFFERENTIAL 2020-01-28 23:19:00 WrangellSilvia U [facility] HOSPITAL ADMISSION 2020-01-28 05:01:00 Doctor Unassigned, [facility] [place] [facility] BASIC METABOLIC PANEL (NA, 2020-01-26 18:06:00 Sarah Duval [facility] K, CL, CO2, GLUCOSE, BUN, Medica [facility] Branch CREATININE, CA) MAGNESIUM 2020-01-26 08:17:00 Liz [facility] XR KUB 2020-01-26 06:00:00 Helene [facility] PHOSPHORUS 2020-01-25 09:43:00 Liz [facility] COVID-19 (ID NOW RAPID 2020-01-25 04:31:00 Shy [facility] TESTING) Medical Branch LACTIC ACID WHOLE BLOOD 2020-01-25 04:27:00 Sabi Begum [facility] CT ABDOMEN PELVIS W 2020-01-25 02:15:22 Sabi Begum [facility] CONTRAST [facility] URINALYSIS 2020-01-25 01:05:00 Shy [facility] LIPASE 2020-01-25 00:42:00 Begum, [facility] HEPATIC FUNCTION PANEL 2020-01-25 00:42:00 Shy [facility] ([id number]) (ALB,T.PRO,BILI Medical Branch T,BU/BC,ALT,AST,ALK PHOS) BASIC METABOLIC PANEL (NA, 2020-01-25 00:42:00 Sabi Begum [facility] K, CL, CO2, GLUCOSE, BUN, Medica [facility] Branch CREATININE, CA) CBC WITH DIFFERENTIAL 2020-01-25 00:42:00 Shy [facility] [id number] 2020-01-09 00:00:00 DAR.01 [facility] EXTERNAL PROVIDER RECORDS 2019-12-28 05:01:00 Doctor Unassigned, [facility] [place] [facility] Plan of Care Planned Activity Planned Date Details Comments Source Future Scheduled 2029-03-23 Screening for malignant [facility] 00:00:00 neoplasm of colon Medical Ce [facility]ter (procedure) [code = 672059633] Future Scheduled 2029-03-23 Screening for malignant [facility] 00:00:00 neoplasm of colon [facility] Ce [facility] (procedure) [code = 407608067] Future Scheduled 2029-03-23 Screening for malignant [facility] 00:00:00 neoplasm of colon Medical Ce [facility] (procedure) [code = 981450746] Future Scheduled 2029-03-23 Screening for malignant [facility] 00:00:00 neoplasm of colon Medical Ce [facility]ter (procedure) [code = 021566731] Future Scheduled 2029-03-23 Screening for malignant [facility] 00:00:00 neoplasm of colon Medical Ce [facility] (procedure) [code = 438354451] Future Scheduled 2029-03-23 Screening for malignant [facility] 00:00:00 neoplasm of colon Medical Ce [facility]ter (procedure) [code = 350454789] Future Scheduled 2029-03-23 Screening for malignant [facility] 00:00:00 neoplasm of colon Medical Ce [facility]ter (procedure) [code = 938825760] Future Scheduled 2029-03-23 Screening for malignant [facility] 00:00:00 neoplasm of colon Medical Ce [facility] (procedure) [code = 063364796] Future Scheduled 2029-03-23 Screening for malignant [facility] 00:00:00 neoplasm of colon Medical Ce [facility] (procedure) [code = 939297227] Future Scheduled 2029-03-23 Screening for malignant [facility] 00:00:00 neoplasm of colon Medical Ce [facility] (procedure) [code = 504758752] Future Scheduled 2029-03-23 Screening for malignant [facility] 00:00:00 neoplasm of colon Medical Ce [facility] (procedure) [code = 557400925] Future Scheduled 2029-03-23 Screening for malignant [facility] 00:00:00 neoplasm of colon Medical Ce [facility] (procedure) [code = 200574982] Future Scheduled 2029-03-23 Screening for malignant [facility] 00:00:00 neoplasm of colon Medical Ce [facility]ter (procedure) [code = 241963611] Future Scheduled 2029-03-23 Screening for malignant [facility] 00:00:00 neoplasm of colon Medical Ce [facility] (procedure) [code = 241132791] Future Scheduled 2029-03-23 Screening for malignant [facility] 00:00:00 neoplasm of colon Medical Ce [facility] (procedure) [code = 623052344] Future Scheduled 2029-03-23 Screening for malignant [facility] 00:00:00 neoplasm of colon Medical Ce [facility]ter (procedure) [code = 286027715] Future Scheduled 2029-03-23 Screening for malignant [facility] 00:00:00 neoplasm of colon Medical Ce [facility] (procedure) [code = 309593747] Future Scheduled 2029-03-23 Screening for malignant [facility] 00:00:00 neoplasm of colon Medical Ce [facility]ter (procedure) [code = 979476465] Future Scheduled 2029-03-23 Screening for malignant [facility] 00:00:00 neoplasm of colon Medical Ce [facility]ter (procedure) [code = 605698066] Future Scheduled 2029-03-23 Screening for malignant [facility] 00:00:00 neoplasm of colon Medical Ce [facility]ter (procedure) [code = 860509558] Future Scheduled 2029-03-23 Screening for malignant [facility] 00:00:00 neoplasm of colon Medical Ce [facility]ter (procedure) [code = 966452807] Future Scheduled 2029-03-23 Screening for malignant [facility] 00:00:00 neoplasm of colon Medical Ce [facility] (procedure) [code = 491082761] Future Scheduled 2029-03-23 Screening for malignant [facility] 00:00:00 neoplasm of colon Medical Ce [facility] (procedure) [code = 082406555] Future Scheduled 2029-03-23 Screening for malignant [facility] 00:00:00 neoplasm of colon Medical Ce [facility] (procedure) [code = 695373791] Future Scheduled 2029-03-23 Screening for malignant [facility] 00:00:00 neoplasm of colon Medical Ce [facility] (procedure) [code = 324470770] Future Scheduled 2022-05-24 IMM Influenza Seasonal H [...] 00:00:00 neoplasm of colon (procedure) [code = 163361921] Future Scheduled 2020-02-14 Screening for malignant [facility] 00:00:00 neoplasm of colon (procedure) [code = 187973723] Future Scheduled 2020-02-14 Screening for malignant [facility] 00:00:00 neoplasm of colon (procedure) [code = 312444761] Future Scheduled 2020-02-14 Screening for malignant [facility] 00:00:00 neoplasm of colon (procedure) [code = 753161557] Future Scheduled 2020-02-14 Screening for malignant [facility] 00:00:00 neoplasm of colon (procedure) [code = 342795186] Future Scheduled 2020-02-14 Screening for malignant [facility] 00:00:00 neoplasm of colon (procedure) [code = 401714689] Future Scheduled 2020-02-14 Screening for malignant [facility] 00:00:00 neoplasm of colon (procedure) [code = 349041737] Future Scheduled 2020-02-14 Screening for malignant [facility] 00:00:00 neoplasm of colon (procedure) [code = 322883639] Future Scheduled 2020-02-14 Screening for malignant [facility] 00:00:00 neoplasm of colon (procedure) [code = 290261995] Future Scheduled 2020-02-14 Screening for malignant [facility] 00:00:00 neoplasm of colon (procedure) [code = 731460599] Future Scheduled 2020-02-14 Screening for malignant [facility] 00:00:00 neoplasm of colon (procedure) [code = 214734957] Future Scheduled 2020-02-14 SHINGLES VACCINES ([address] [facility] 00:00:00 2) [code = SHINGLES Medical Center VACCINES (1 of 2)] Future Scheduled 2020-02-14 Screening for malignant [facility] 00:00:00 neoplasm of colon (procedure) [code = 550093365] Future Scheduled 2020-02-14 SHINGLES VACCINES (1 of [...] [facility] 00:00:00 [code = 26228935] Medical Ce nter Future Scheduled 2005 Lipid panel (procedure) [facility] 00:00:00 [code = 77527588] Medical Ce nter Future Scheduled 2005 Lipid panel (procedure) [facility] 00:00:00 [code = 53994052] Medical Ce nter Future Scheduled 2005 Lipid panel (procedure) [facility] 00:00:00 [code = 84568197] Medical Ce nter Future Scheduled 2005 Lipid panel (procedure) [facility] 00:00:00 [code = 15478305] Medical Ce nter Future Scheduled 2005 Lipid panel (procedure) [facility] 00:00:00 [code = 98303996] Medical Ce nter Future Scheduled 2005 Lipid panel (procedure) [facility] 00:00:00 [code = 70886282] Medical Ce nter Future Scheduled 2005 Lipid panel (procedure) [facility] 00:00:00 [code = 48451511] Medical Ce nter Future Scheduled 2005 Lipid panel (procedure) [facility] 00:00:00 [code = 59350845] Medical Ce nter Future Scheduled 2005 Lipid panel (procedure) [facility] 00:00:00 [code = 13782056] Medical Ce nter Future Scheduled 2005 Lipid panel (procedure) [facility] 00:00:00 [code = 77670530] Medical Ce nter Future Scheduled 2005 Lipid panel (procedure) [facility] 00:00:00 [code = 91479591] Medical Ce nter Future Scheduled 2005 Lipid panel (procedure) [facility] 00:00:00 [code = 13049067] Medical Ce nter Future Scheduled 1989 DTAP/TDAP/TD [...] [facility] 00:[facility]:00 [code = CT Colonography [facility] (combo)] Future Scheduled 1970 Screening for malignant [facility] 00:00:00 neoplasm of colon Medical Ce [facility]ter (procedure) [code = 028270970] Future Scheduled 1970 Screening for malignant [facility] 00:00:00 neoplasm of colon Medical Ce [facility]ter (procedure) [code = 752559830] Future Scheduled 1970 Sigmoidoscopy [facility]] [facility] Cent[facility] Future Scheduled 1970 Screening for malignant [facility] 00:00:00 neoplasm of colon Medical Ce [facility]ter (procedure) [code = 398494713] Future Scheduled 1970 Screening for malignant [facility] 00:00:00 neoplasm of colon Medical Ce [facility]ter (procedure) [code = 855688530] Future Scheduled 1970 Sigmoidoscopy [facility]code = [facility] S[facility]oscopy] Medical Cent[facility] r Future Scheduled 1970 CT Colonography (combo) [facility] 00:00:00 [code = CT Colonography [facility] (combo)] Future Scheduled 1970 Screening for malignant [facility] 00:00:00 neoplasm of colon Medical Ce [facility]ter (procedure) [code = 607209494] Future Scheduled 1970 Screening for malignant [facility] 00:00:00 neoplasm of colon Medical Ce [facility]ter (procedure) [code = 494029595] Future Scheduled 1970 Sigmoidoscopy [facility]code = [facility] S[facility]oscopy] Medical Cent[facility] r Future Scheduled 1970 CT Colonography (combo) [facility] 00:00:00 [code = CT [facility]ography [facility] (combo)] Future Scheduled 1970 Screening for malignant [facility] 00:00:00 neoplasm of colon Medical Ce [facility]ter (procedure) [code = 998010659] Future Scheduled 1970 Screening for malignant [facility] 00:00:00 neoplasm of colon Medical Ce [facility]ter (procedure) [code = 549364329] Future Scheduled 1970 Sigmoidoscopy [code = [facility] S[facility]oscopy] Medical Cent[facility] r Future Scheduled 1970 CT Colonography (combo) [facility] 00:00:00 [code = CT [facility]ography [facility] (combo)] Future Scheduled 1970 Screening for malignant [facility] 00:00:00 neoplasm of colon Medical Ce [facility]ter (procedure) [code = 669589660] Future Scheduled 1970 Screening for malignant [facility] 00:00:00 neoplasm of colon Medical Ce [facility]ter (procedure) [code = 325063403] Future Scheduled 1970 Sigmoidoscopy [facility]code = [facility] S[facility]oscopy] Medical Cent[facility] r Future Scheduled 1970 CT Colonography (combo) [facility] 00:00:00 [code = CT [facility]ography [facility] (combo)] Future Scheduled 1970 Screening for malignant [facility] 00:00:00 neoplasm of colon Medical Ce [facility]ter (procedure) [code = 679196863] Future Scheduled 1970 Screening for malignant [facility] 00:00:00 neoplasm of colon Medical Ce [facility]ter (procedure) [code = 917957801] Future Scheduled 1970 Sigmoidoscopy [facility]code = [facility] Sigmoidoscopy] Medical An[facility] r Future Scheduled 1970 CT Colonography (combo) [facility] 00:00:00 [code = CT Colonography [facility] (combo)] Future Scheduled 1970 Screening for malignant [facility] 00:00:00 neoplasm of colon Medical Ce [facility]ter (procedure) [code = 693283213] Future Scheduled 1970 Screening for malignant [facility] 00:00:00 neoplasm of colon Medical Ce [facility]ter (procedure) [code = 768118829] Future Scheduled 1970 Sigmoidoscopy [facility]code [facility] S[facility]oidoscopy] Medical [facility] r Future Scheduled 1970 CT Colonography (combo) [facility] 00:00:00 [code = CT Colonography [facility] (combo)] Future Scheduled 1970 Screening for malignant [facility] 00:00:00 neoplasm of colon Medical Ce [facility]ter (procedure) [code = 341301006] Future Scheduled 1970 Screening for malignant [facility] 00:00:00 neoplasm of colon Medical Ce [facility]ter (procedure) [code = 387750487] Future Scheduled 1970 Sigmoidoscopy [facility]code = [facility] S[facility]oidoscopy] Medical Seda r Future Scheduled 1970 CT Colonography (combo) [facility] 00:00:00 [code = CT Colonography [facility] (combo)] Future Scheduled 1970 Screening for malignant [facility] 00:00:00 neoplasm of colon Medical Ce [facility]ter (procedure) [code = 665243896] Future Scheduled 1970 Screening for malignant [facility] 00:00:00 neoplasm of colon Medical Ce [facility]ter (procedure) [code = 326562563] Future Scheduled 1970 Sigmoidoscopy [facility]code = [facility]:00 S[facility]oidoscopy] Medical Seda r Future Scheduled 1970 CT Colonography (combo) [facility] 00:00:00 [code = CT Colonography [facility] (combo)] Future Scheduled 1970 Screening for malignant [facility] 00:00:00 neoplasm of colon Medical Ce [facility]ter (procedure) [code = 340174087] Future Scheduled 1970 Screening for malignant [facility] 00:00:00 neoplasm of colon Medical Ce [facility]ter (procedure) [code = 565601314] Future Scheduled 1970 Sigmoidoscopy [code = [facility] Sigmoidoscopy] Medical Cente r Future Scheduled 1970 CT Colonography (combo) [facility] 00:00:00 [code = CT Colonography [facility] (combo)] Future Scheduled 1970 Screening for malignant [facility] 00:00:00 neoplasm of colon Medical Ce [facility]ter (procedure) [code = 886002931] Future Scheduled 1970 Screening for malignant [facility] 00:00:00 neoplasm of colon Medical Ce [facility]ter (procedure) [code = 591122503] Future Scheduled 1970 Sigmoidoscopy [code = [facility] 00:00:00 Sigmoidoscopy] Medical Cente r Future Scheduled 1970 CT Colonography (combo) [facility] 00:00:00 [code = CT Colonography [facility] (combo)] Future Scheduled 1970 Screening for malignant [facility] 00:00:00 neoplasm of colon Medical Ce [facility]ter (procedure) [code = 001510593] Future Scheduled 1970 Screening for malignant [facility] 00:00:00 neoplasm of colon Medical Ce [facility]ter (procedure) [code = 016910584] Future Scheduled 1970 Sigmoidoscopy [code [facility]:00 Sigmoidoscopy] Medical Cente r Future Scheduled 1970 CT Colonography (combo) [facility] 00:00:00 [code = CT Colonography [facility] (combo)] Encounters Start End Encounter Admission Attending Care Care Encounter Source Date/Time Date/Time Type Type Clinicians Facility Department ID 2021-06-25 Emergency [facility] [id number] [facility] [id number] [facility] Emergency [facility] [id number] Univers 22:38:[address] [facility] 2021-06-22 Emergency [facility] [id number] Univers 21:40:[address] [facility] 2021-06-22 Emergency [facility] [id number] Univers 13:55:[address] [facility] 2021-06-22 Emergency [facility] [id number] Univers 05:54:[address] [facility] 2021-06-21 Emergency [facility] [id number] Univers 22:33:[address] [facility] 2021-06-21 Emergency [facility] [id number] Univers 22:33:[address] [facility] 2021-06-21 Emergency [facility] [id number] Univers 22:22:[address] [facility] 2021-06-21 Emergency [facility] [id number] Univers 20:04:[address] [facility] 2021-06-21 Emergency [facility] [id number] Univers 19:53:[address] [facility] 2021-06-21 Emergency [facility] [id number] Univers 19:37:[address] [facility] 2021-06-21 Emergency [facility] [id number] Univers 19:36:[address] [facility] 2021-06-21 Emergency [facility] [id number] Univers 17:11:[address] [facility] 2021-06-21 Emergency [facility] [id number] Univers 16:44:[address] [facility] 2021-06-21 Emergency [facility] [id number] Univers 11:19:[address] [facility] 2021-06-21 Emergency [facility] [id number] Univers 10:16:[address] [facility] 2021-06-21 Emergency [facility] [id number] Univers 06:08:[address] [facility] 2021-06-21 Emergency [facility] [id number] Univers 04:43:[address] [facility] 2021-06-21 Emergency [facility] [id number] Univers 04:42:[address] [facility] 2021-06-20 [facility] PAKO [id number] Univers 18:31:[address] [facility] 2020-02-23 Inpatient HCAPM LENNY [id number] [facility] 18:42:00 89 [facility] 2020-02-17 Inpatient SEAN Nova, HCAPM MAS [id number] [facility] 00:22:00 Oladipo 75 [facility] 2020-01-05 Inpatient MORIS Perea, HCAPM MEDI.01 [id number] [facility] 20:23:00 Mark 40 [facility] [place] 2019-12-13 Inpatient HCAMN JULIA [id number] [facility] 17:52:00 47 [facility] 2022-05-22 2022-05-22 Transition MELANIE Vallejo 1.2.840.114 [id number] Univers 00:00:00 00:00:00 of Care Emili RECINOS 350.1.13.10 [place] of [place] [id number] [facility] [address] 2022-05-19 2022-05-21 Inpatient [facility] [id number] Univers 19:15:00 15:48:[address] [facility] 2022-05-19 2022-05-21 Hospital Joel Baez [facility] 1.2.840. 114 [id number] Univers 19:15:00 15:48:00 Encounter Eros Rios 350.1.13.10 ity of Patel Rangel 4.2.7.2.686 [facility] [id number] [facility] 080 Branch 2022-05-21 2022-05-21 Patient Saira Goodman MELANIE 1.2.840.114 [id number] Univers 00:00:00 00:00:00 Outreach E RECINOS 350.1.13.10 i ty of [place] [id number] [facility] [address] 2022-04-14 2022-04-14 Transition MELANIE Valdes 1.2.840.114 [id number] Univers 00:00:00 00:00:00 of Care Miryam RECINOS 350.1.13.10 it [place] [id number] [facility] [address] 2022-04-09 2022-04-10 Emergency X LUCY [facility] ERT [id number] Univers 20:38:00 00:14:[address] [facility] 2022-04-09 2022-04-10 Emergency [facility] 1.2.840.114 [id number] Univers 20:38:00 00:14:00 Folzulyo Rosibel NAVARROKINDRA 350.1.13.10 ity of [place] [id number] [facility] 084 Branch 2022-04-09 2022-04-09 Transition ASIA ValdesEddie 1.2.840.114 [id number] Univers 00:00:00 00:00:00 of Gi RECINOS 350.1.13.10 it y of [place] [id number] [facility] [address] 2022-04-02 2022-04-08 Inpatient X [facility] URI [id number] Univers 11:42:00 12:30:[address] [facility] 2022-04-02 2022-04-08 Hospital Rekha Sheehan [facility] 1.2.840.11 [id number] Univers 11:42:00 12:30:[address] [facility] 350.1.13.10 ity of [facility] Diogo Lora 4.2.7.2.686 [place] [phone] ([facility]) 2022-03-29 2022-03-29 Emergency EM White, HCACL AERS [id number] [facility] 14:26:00 16:45:00 Sabi Adams [facility] 2022-03-29 2022-03-29 Emergency EM White, HCACL HCACL [id number] [facility] 14:26:00 16:45:00 Sabi [id number] [facility] 2022-03-25 2022-03-26 Inpatient E [facility] [id number] MHBL 13:38:00 10:16:00 , YESSI 2022-03-15 2022-03-18 Emergency E RADHA, [facility] MED [address] [facility] 13:36:00 18:59:00 JULIO 2022-03-13 2022-03-13 Emergency [facility] [id number] Lynne 15:33:00 20:25:00 [facility] 2022-03-13 2022-03-13 Emergency [facility] [id number] [place]ne 15:33:00 20:25:00 [facility] 2022-03-13 2022-03-13 Outpatient RONALD, [facility] [id number] [place] 00:00:00 00:00:00 [facility] 2022-03-06 2022-03-09 Inpatient ER [facility] Emergency [id number] [facility] 12:16:00 12:55:00 2022-03-06 2022-03-09 [facility] [id number] [facility] 12:16:00 12:55:00 Encounter Norma Montalvo Fang-Ying M edical Heinen, Allison P. [facility] Leonidas Bain Colin 2022-03-06 2022-03-09 [facility] [id number] 12:16:00 12:55:00 Encounter Norma Montalvo Fang-Ying M edical Heinen, [facility] Leonidas Odell Colin 2022-03-06 2022-03-06 Outpatient [facility] [id number] [facility] 00:00:00 23:59:00 Lorna Medicin e 2022-03-06 2022-03-06 Orders [facility] [id number] 00:00:00 00:00:00 Only [facility] 2022-03-06 2022-03-06 Travel [facility] [id number] [facility] 00:[facility]00 00:00:00 [facility] 2022-03-062022-03-06 Orders [facility] [id number] 00:00:00 00:00:00 Only [facility] 2022-03-06 2022-03-06 Travel [facility] [id number] [facility] 00:[facility]00 00:00:00 [facility] 2022-02-18 2022-02-20 Emergency Mitzi Carbajal [facility] [id number] [place] 13:58:00 11:55:00 [facility], Rufino Laz Blake [facility] 2022-02-18 2022-02-20 Emergency Mitzi Carbajal [facility] [id number] [place] 13:58:00 11:55:00 [facility]ufino Laz Blake Fannie 2022-02-18 2022-02-18 Emergency [facility] [id number] [place] 15:19:05 15:23:18 [facility] 2022-02-18 2022-02-18 Outpatient 1 [facility] [id number] [place] 13:58:00 13:58:00 [facility] 2022-02-18 2022-02-18 Outpatient [facility] [id number] [place] 00:00:00 00:00:00 , OSCAR Frances 2022-02-07 2022-02-11 [facility] [id number] [place] 13:40:00 13:22:00 [facility] 2022-02-07 2022-02-11 [facility] [id number] [place] 13:40:00 13:22:00 [facility]counter [facility] 2022-02-07 2022-02-07 Outpatient 1 DAILY ISLAS [facility] [id number] [place] 13:40:00 13:40:00 [facility] 2022-01-30 2022-01-30 Emergency [facility] [id number] [facility] 17:02:00 18:29:00 Dwain Carmona [facility] 2022-01-30 2022-01-30 Emergency EM Tara, [facility] [id number] [facility] 17:02:00 18:29:[address] [facility] 2022-01-22 2022-01-22 Emergency [facility] [id number] [place] 17:24:00 20:39:00 [facility] 2022-01-22 2022-01-22 Emergency [facility] [id number] [place] 17:24:00 20:39:00 [facility] 2022-01-16 2022-01-21 Emergency Raymon Martin [facility] [id number] [place] 11:04:00 18:08:00 Karin Bassett [facility] Sushil Loera Parth P 2022-01-16 2022-01-21 Emergency Raymon Martin [facility] [id number] [place] 11:04:00 18:08:00 Karin Bassett Julian C Agrawal, Parth P 2022-01-19 2022-01-19 Outpatient [facility] [id number] [place] 12:34:08 13:29:31 [facility] 2022-01-16 2022-01-16 Outpatient [facility] [id number] [place] 19:42:28 20:01:28 [facility] 2022-01-16 2022-01-16 Outpatient 1 DANYELLE [facility] [id number] [place] 11:04:00 11:04:00 KARIN Daniels 2022-01-10 2022-01-11 Emergency Bert Rede [facility] [id number] [place] 10:58:00 11:20:00 Helene Anderson [facility] Merissa Richards 2022-01-10 2022-01-11 Emergency Bert Reed [facility] [id number] [place] 10:58:00 11:20:00 Helene Anderson [facility] Merissa Richards Q 2022-01-10 2022-01-10 Outpatient 1 JUSTIN [facility] [id number] [place] 10:58:00 10:58:00 HELENE [facility] 2022-01-08 2022-01-09 Emergency [facility] [id number] [place] 17:57:00 02:50:00 [facility] 2022-01-08 2022-01-09 Emergency [facility] [id number] [place] 17:57:00 02:50:00 [facility] 2022-01-08 2022-01-08 Emergency [facility] [id number] [place] 21:40:34 21:50:19 [facility] 2021-09-23 2021-09-23 Emergency Raffaele Pitts HCACL AERS [id number] [facility] 19:35:00 21:10:[address] [place] [address] 2021-09-13 2021-09-13 Emergency X RACHEL, [facility] ERT [id number] Univers 21:20:00 22:36:00 MICKEY ity [facility] 2021-09-13 2021-09-13 Emergency Comparosmery [facility] 1.2.648.444 [id number] Univers 21:20:00 22:36:00 Mickey Jevon [facility] 350.1.13.10 it y of [place] [facility] [id number] [address] ([facility]) 2021-09-13 2021-09-13 Emergency Raffaele Pitts HCACL AERS [id number] [facility] 14:57:00 16:37:00 06 [facility] 2021-09-12 2021-09-12 Emergency X MORRICAL, [facility] ERT [id number] Univers 14:25:00 17:51:00 DWAIN ity [facility] 2021-09-12 2021-09-12 Emergency Morrical, TRAUMA 1.2.840.114 [id number] Univers 14:25:00 17:51:00 [facility] 350.1.13.10 ity of 4.2.7.2.686 [facility] [id number] [address] 2021-09-12 2021-09-12 Emergency X JAMEY [facility] ERT [id number] Univers 06:20:00 10:10:00 CONSTANTIN ity [facility] 2021-09-12 2021-09-12 Emergency Odin Alona TRAU[place] 1.2.840 .114 [id number] Univers 06:20:00 10:10:00 Constantin Concepcion STANDISH 350.1.13.10 [place] [id number] [address] 2021-09-08 2021-09-09 Emergency X TARA [facility] ERT [id number] Univers 23:01:00 01:30:[address] [facility] 2021-09-08 2021-09-09 Emergency Tara, TRAU[place] 1.2.102.185 [id number] Univers 23:01:00 01:30:00 Sebastian [facility] 350.1.13.10 [place] [id number] [address] 2021-09-07 2021-09-07 Emergency X TARA [facility] ERT [id number] Univers 19:24:00 23:44:[address] [facility] 2021-09-07 2021-09-07 Emergency Tara, TRAUMA 1.2.493.267 [id number] Univers 19:24:00 23:44:00 Sebastian [facility] 350.1.13.10 [place] [id number] [address] 2021-09-06 2021-09-06 Emergency X TARA, [facility] ERT [id number] Univers 15:35:00 17:52:[address] [facility] 2021-09-06 2021-09-06 Emergency Tara, TRAUMA 1.2.160.180 [id number] Univers 15:35:00 17:52:00 Sebastian [facility] 350.1.13.10 [place] [id number] [address] 2021-09-06 2021-09-06 Transition MELANIE Vallejo 1.2.840.114 [id number] Univers 00:00:00 00:00:00 of Care Emili RECINOS 350.1.13.10 [place] [id number] [facility] [address] 2021-08-30 2021-09-05 Inpatient X BIA PEDRO [facility] PAKO [id number] Univers 16:53:00 16:00:[address] [facility] 2021-08-30 2021-09-05 [facility] ABILIO 1 .2.840.114 [id number] Univers 16:53:00 16:00:00 Encounter Sophia Andrea [place] 350.1 .13.10 ity of [facility] 4.2.7.2.686 [facility] [phone] Medical 7 Branch 2021-09-03 2021-09-03 Surgery [facility] ABILIO 1.2.840.114 [id number] Univers 07:15:00 10:04:00 [place]TE 350.1.13.10 it y of [facility] 4.2.7.[address] [place] [address] [phone] [facility] 103 [address] 2021-08-29 2021-08-29 Emergency X IBIKUNLE, [facility] ERT [id number] Univers 17:15:00 20:03:[address] [facility] 2021-08-29 2021-08-29 Emergency Ibikunle, TRAUMA 1.2.840.114 [id number] Univers 17:15:00 20:03:00 [facility] F CENTER 350.1.13.10 ity of 4.2.7.2.686 [facility] [id number] [facility] 014 Branch 2021-07-29 2021-08-05 Inpatient X [facility] PAKO [id number] Univers 20:15:00 07:43:[address] [facility] 2021-07-29 2021-08-05 [facility] Jonah Rees 1.2.840.1 14 [id number] Univers 20:15:00 07:43:00 Encounter Karin Myers 350.1.13.1 0 ity of [facility] 4.2.7.2.[address] [place] [address] [phone] [facility] 091 [address] 2021-07-29 2021-07-29 Transition MELANIE Vallejo 1.2.840.114 [id number] Univers 00:00:00 00:00:00 of Care Emili RECINOS 350.1.13.10 [place] [id number] [facility] [address] 2021-07-27 2021-07-27 Emergency EM Kateryna, HCAMN JULIA [id number] [facility] 10:15:00 12:36:00 Tarek 17 [facility] 2021-07-23 2021-07-26 Inpatient X BIA PEDRO [facility] PAKO [id number] Univers 00:39:00 14:50:[address] [facility] 2021-07-23 2021-07-26 Hospital Sabi Schultz 1.2.840 .114 [id number] Univers 00:39:00 14:50:00 Encounter Bia Pedro 350.1.13.10 ity of [facility] 4.2.7.2.686 Javi as [id number] [facility] 093 Branch 2021-07-22 2021-07-22 Emergency EM Marcelina, [facility] AERS [id number] [facility] 04:25:00 08:20:00 Tarrell 74 [facility] 2021-06-27 2021-06-27 Emergency EM Bridgett, [facility] AERS [id number] [facility] 15:31:00 17:37:00 Sabi Pollard [facility] 2021-06-25 2021-06-25 Orders Doctor LOVELL 1.2.840.114 [id number] Univers 00:00:00 00:00:00 Only UnassignedCHARLOTTE 350.1.13.10 ity of [place] [facility] 4.2.7.2.686 Javi as [phone] [facility] 009 Branch 2021-05-31 2021-06-04 Emergency Willie Garrett [facility] 1.2.840.1 14 [id number] Univers 17:10:00 16:38:00 Clementine Castellon 350.1.13.10 ity of Sabi Gann 4.2.7.2.686 [place] Tamika Lyle [place] [phone] [place] [address] [address] ([facility]) 2021-05-20 2021-05-21 Emergency Bernardo Donnelly [facility] 1.2.840.114 [id number] Univers 14:29:00 17:10:00 Scott [facility] 350.1.13.10 ity of [place] 4.2.7.2.686 [facility] [id number] [facility] 116 Branch ([facility]) 2021-05-10 2021-05-10 Transition Melanie Vallejo 1.2.840.114 [id number] Univers 00:00:00 00:00:00 of Care Emili Recinos 350.1.13.10 ity of [place] 4.2.7.2.686 [facility] [phone] [facility] 403 [address] 2021-05-07 2021-05-09 Hospital Alona Pérez [facility] 1.2.840.11 [id number] Univers 19:23:00 15:26:00 Encounter Diogo Keane [facility] 350.1.13. 10 ity of Abad Watson [place] 4.2.7.2.686 [facility] [phone] [facility] 114 [address] ([facility]) 2021-04-28 2021-05-01 Inpatient SEAN Leonard, [facility] [id number] [facility] 21:05:00 14:18:00 Marcello 03 [facility] 2020-09-26 2020-09-26 Emergency Jose [facility] 1.2.010.118 [id number] Univers 16:56:00 23:00:00 Mariaelena Oropeza 350.1.13.10 i ty of [place] 4.2.7.2.686 [facility] [id number] [facility] 084 Branch 2020-08-22 2020-08-24 Emergency Jeromy Funmilayo [facility] 1.2.8 40.114 [id number] Univers 15:31:00 14:20:00 [facility] 350.1.13.10 ity of Ori Persaud [place] 4.2.7.2.686 [facility] [phone] [facility] 114 [address] ([facility]) 2020-07-09 2020-07-09 Emergency Mutendereki [facility] 1.2.840.114 [id number] Univers 16:23:00 19:43:[address] , [facility] 350.1.13.10 it[place].2.[place] [phone] [facility] 014 Branch ([facility]) 2020-06-15 2020-06-15 Patient Saira Goodman 1.2.840.114 [id number] Univers 00:00:00 00:00:00 Outreach E Recinos 350.1.13.10 i ty of [place]2.7.2.[place] [id number] [place] [address] Branch 2020-06-12 2020-06-12 Patient Saira Goodman 1.2.840.114 [id number] Univers 00:00:00 00:00:00 Outreach E Recinos 350.1.13.10 i ty of [place] [id number] [address] 2020-06-08 2020-06-08 Patient Melanie Emanuel 1.2.840.114 [id number] Univers 00:00:00 00:00:00 Outreach Mela Arvizu Recinos 350.1.13.10 ity of [place].2.[place] [id number] [address] 2020-06-07 2020-06-07 Patient Saira Goodman 1.2.840.114 [id number] Univers 00:00:00 00:00:00 Outreach E Recinos 350.1.13.10 i ty of [place] 4[place]2.7.2.[place] [id number] [address] 2020-06-05 2020-06-05 Emergency [facility] 1.2.840.114 [id number] Univers 06:47:00 10:55:00 More Oropeza 350.1.13.10 ity of [place] 4.2.7.2.686 [place] [id number] [facility] 084 [place] 2020-06-04 2020-06-04 Emergency [facility] 1.2.157.050 [id number] Univers 10:36:00 13:38:00 [facility] 350.1.13.10 it y of [place].2.686 [place] [id number] [facility] 014 Branch ([facility]) 2020-06-04 2020-06-04 Patient Saira Goodman Melanie 1.2.840.114 [id number] Univers 00:00:00 00:00:00 Outreach E Recinos 350.1.13.10 i ty of [place] 4.2.7.2.[place] [id number] [place] [address] Branch 2020-06-04 2020-06-04 Patient Asia Emanueleddie 1.2.840.114 [id number] Univers 00:00:00 00:00:00 Outreach Mela Arvizu Recinos 350.1.13.10 ity of [place] 4.2.7.2.[place] [phone] [place] [address] Branch 2020-06-01 2020-06-01 Transition YoniMelanie 1.2.840.114 [id number] Univers 00:00:00 00:00:00 of Care Emili Recinos 350.1.13.10 ity of [place] 4.2.7.2.686 [place] [id number] [place] [address] Branch 2020-05-22 2020-05-31 Hospital Alex Lopez 1.2.840.11 [id number] Univers 14:42:00 18:40:00 Encounter LeonardoctaviaBia 350.1.13.10 ity of [facility] 4.2.7.2.686 Javi as [phone] [place] [address] [place] 2020-05-31 2020-05-31 Patient Saira Goodman Melanie 1.2.840.114 [id number] Univers 00:00:00 00:00:00 Outreach E Recinos 350.1.13.10 i ty of [place] 4.2.7.2.686 [place] [id number] [place] [address] Branch 2020-05-23 2020-05-23 Patient Saira Goodman Melanie 1.2.840.114 [id number] Univers 00:00:00 00:00:00 Outreach E Recinos 350.1.13.10 i ty of [place] 4.2.7.2.686 [place] [id number] [place] [address] Branch 2020-05-23 2020-05-23 Patient Saira Goodman 1.2.840.114 [id number] Univers 00:00:00 00:00:00 Outreach E Recinos 350.1.13.10 i ty of [place].2.[place] [id number] [address] 2020-05-23 2020-05-23 Patient Melanie Emanuel 1.2.840.114 [id number] Univers 00:00:00 00:00:00 Outreach Mela Arvizu Recinos 350.1.13.10 ity of [place] 4[place].7.2.[place] [id number] [address] 2020-05-21 2020-05-21 Emergency [facility] 1.2.438.220 [id number] Univers 20:52:00 23:41:00 [facility] 350.1.13.10 it y of [place] [phone] [address] ([facility]) 2020-05-20 2020-05-20 Emergency Unknown, TRAUMA 1.2.840.114 [id number] Univers 07:04:00 15:13:00 Attending CENTER 350.1.13.10 it[place] of [place].2.[place] [id number] [address] 2020-05-19 2020-05-20 Emergency [facility] 1.2.840.114 [id number] Univers 21:29:00 06:12:00 [facility] 350.1.13.10 it y of [place]2.7.2.[place] [id number] [address] ([facility]) 2020-05-18 2020-05-18 Patient Saira Goodman 1.2.840.114 [id number] Univers 10:18:59 11:28:59 Outreach E Recinos 350.1.13.10 i ty of [place]2.[place] [id number] [address] 2020-05-18 2020-05-18 Patient Melanie Emanuel 1.2.840.114 [id number] Univers 00:00:00 00:00:00 Outreach Mela Arvizu Recinos 350.1.13.10 ity of [place].2.[place] [id number] [address] 2020-05-17 2020-05-17 Patient Saira Goodman 1.2.840.114 [id number] Univers 00:00:00 00:00:00 Outreach E Recinos 350.1.13.10 i ty of [place].2.[place] [id number] [address] 2020-05-17 2020-05-17 Patient Asia Emanueleddie 1.2.840.114 [id number] Univers 00:00:00 00:00:00 Outreach Mela W Recinos 350.1.13.10 ity of [place].2.[place] [id number] [address] 2020-05-15 2020-05-15 Patient Asia Emanueleddie 1.2.840.114 [id number] Univers 00:00:00 00:00:00 Outreach Mela Arvizu Recinos 350.1.13.10 it[place] of [place].2.[place] [id number] [address] 2020-05-14 2020-05-14 Transition Melanie Vallejo 1.2.840.114 [id number] Univers 00:00:00 00:00:00 of Care Emili jJy 350.1.13.10 ity of [place]2.[place] [id number] [address] 2020-05-04 2020-05-12 [facility] 1.2. 840.114 [id number] Univers 21:09:00 14:03:00 Encounter Carol Ann Jason 350.1.13.10 ity of Hospital 4.2.7.2.686 Javi as [phone] [address] 2020-05-10 2020-05-10 Patient Saira Goodmaneddie 1.2.840.114 [id number] Univers 00:00:00 00:00:00 Outreach E Recinos 350.1.13.10 i ty of [place].7.2.[place] [id number] [address] 2020-05-09 2020-05-09 Transition Melanie Vallejo 1.2.840.114 [id number] Univers 00:00:00 00:00:00 of Care Emili Recinos 350.1.13.10 ity of [place]2.7.2.[place] [id number] [address] 2020-05-08 2020-05-08 Patient Saira Goodman 1.2.840.114 [id number] Univers 00:00:00 00:00:00 Outreach E Recinos 350.1.13.10 [place] [id number] [address] 2020-05-02 2020-05-03 Emergency [facility] 1.2.690.136 [id number] Univers 23:37:00 01:53:00 [place] 350.1.13.10 [place] [phone] [address] 2020-05-03 2020-05-03 Patient Saira Goodman 1.2.840.114 [id number] Univers 00:00:00 00:00:00 Outreach E Recinos 350.1.13.10 [place] [phone] [address] 2020-05-03 2020-05-03 Transition Melanie Vallejo 1.2.840.114 [id number] Univers 00:00:00 00:00:00 of Care Emili Recinos 350.1.13.10 [place] [phone] [address] 2020-03-30 2020-05-02 Hospital Alex Lopez 1.2.840.11 [id number] Univers 16:55:00 16:45:00 Encounter Diogo Keane 350.1.13. 10 ity of [facility] 4.2.7.2.686 [place] [id number] [address] 2020-04-06 2020-04-06 Anesthesia Dana Sampson 1.2.8 40.114 [id number] Univers 09:10:00 11:29:00 Cynthia Herring 350.1.1 3.10 ity of Hospital 4.2.7.2.686 [place] as [phone] [facility] [address] 2020-03-29 2020-03-29 Transition Melanie Vallejo 1.2.840.114 [id number] Univers 00:00:00 00:00:00 of Care Emili Recinos 350.1.13.10 [place] [phone] [facility] [address] 2020-03-25 2020-03-28 [facility] Bernardo Donnelly [facility] 1.2.840.114 [id number] Univers 19:12:00 18:43:00 Encounter [facility] 350.1.13.1 0 [place] [phone] [facility] [address] ([facility]) 2020-03-07 2020-03-07 Transition Melanie Vallejo 1.2.840.114 [id number] Univers 00:00:00 00:00:00 of Care Emili Recinos 350.1.13.10 [place] [phone] [facility] [address] 2020-03-02 2020-03-05 [facility] Sabi Begum [facility] 1.2.840.11 [id number] Univers 19:53:34 17:23:00 Encounter [facility] 350.1.13.10 ity of [place] 4.2.7.2.686 [place] [phone] [facility] [address] ([facility]) 2020-02-29 2020-02-29 Transition Melanie Vallejo 1.2.840.114 [id number] Univers 00:00:00 00:00:00 of Care Emili Recinos 350.1.13.10 [place] [id number] [facility] [address] 2020-02-26 2020-02-27 Hospital Juventino Mccabe 1.2.840.11 4 [id number] Univers 04:55:41 19:20:00 Encounter Bia Pedro 350.1.13.10 ity of Hospital 4.2.7.2.686 Javi as [id number] [facility] [address] 2020-02-27 2020-02-27 Patient Saira Goodman Melanie 1.2.840.114 [id number] Univers 00:00:00 00:00:00 Outreach E Recinos 350.1.13.10 i [id number] [address] [address] 2020-02-25 2020-02-26 Emergency [facility] 1.2.774.173 [id number] Univers 21:25:58 03:55:00 [facility] 350.1.13.10 it [place] [id number] [facility] [address] ([facility]) 2020-02-24 2020-02-24 Outpatient Perea, HCACL LABO [id number] [facility] 07:51:00 07:51:00 Mark 96 [facility] 2020-02-18 2020-02-18 Outpatient Avtar, HCACL LABO [id number] [facility] 00:26:00 00:26:00 Oladipo 05 [facility] 2020-02-07 2020-02-07 Transition Melanie Vallejo 1.2.840.114 [id number] Univers 00:00:00 00:00:00 of Care Emili Recinos 350.1.13.10 [id number] [address] 2020-02-07 2020-02-07 Transition Melanie Vallejo 1.2.840.114 [id number] 00:00:00 00:00:00 of Care Emili Recinos 350.1.13.10 [place] 4.2.7.2.686 [id number] [facility] 2020-01-28 2020-02-05 Inpatient X [facility] [id number] Univers 18:12:56 15:12:00 RADHESHYAM ity [facility] 2020-01-28 2020-02-05 [facility] Bernardo Donnelly [facility] 1.2.840.114 [id number] Univers 18:12:56 15:12:00 Encounter [facility] 350.1.13.10 ity of [place], Radheshyam [place] 4.2.7.2.686 [place] Bhatt [id number] [facility] [address] ([facility]) 2020-01-28 2020-02-05 [facility] Bernardo Donnelly [facility] 1.2.840.114 [id number] 18:12:56 15:12:00 Encounter [facility] 350.1.13.10 [place], Radheshyam [place] 4.2.7.2.686 [place] [id number] [place] [address] ([facility]) 2020-01-24 2020-01-26 Emergency BegumSabi simons [facility] 1.2.840.1 14 [id number] Univers 18:46:34 19:35:00 Liz, [facility] 350.1.13.10 ity of [place], Radheshyam [place] 4.2.7.2.686 [facility] [id number] [facility] [address] ([facility]) 2020-01-24 2020-01-26 Outpatient X SIMIN [facility] [id number] Univers 18:46:34 19:35:00 RADHESHYAM ity [facility] 2020-01-24 2020-01-26 [facility] 1.2.840.1 14 [id number] 18:46:34 19:35:00 Liz, [facility] 350.1.13.10 [place], Radheshyam [place] 4.2.7.2.686 [place] [id number] [place] [address] ([facility]) 2020-01-05 2020-01-05 Outpatient JOE Perea [id number] [facility] 23:52:00 23:52:00 [facility] 2019-12-28 2019-12-28 Orders Doctor BERNARDO 1.2.840.114 [id number] Univers 00:00:00 00:00:00 Only Unassigned, [place] 350.1.13.10 ity of [place] 4.2.7.2.686 Javi as [id number] [facility] mariusz [address] 2019-12-28 2019-12-28 Orders Doctor BERNARDO 1.2.840.114 [id number] 00:00:00 00:00:00 Only Unassigned, [place] 350.1.13.10 [facility] 4.2.7.2.686 [id number] 009 2019-12-12 2019-12-12 Emergency [place], [place]UMA 1.2.705.995 [id number] [facility] 21:02:30 23:20:00 [facility] 350.1.13.10 [place] [id number] [facility] [address] 2019-12-12 2019-12-12 Emergency [place], [place] 1.2.018.448 [id number] 21:02:30 23:20:00 [facility] 350.1.13.10 4.2.7.2.686 [id number] 014 2017-11-02 2017-11-02 Emergency E [facility] [id number] [address] 08:33:00 08:33:00 [facility] 2017-08-05 2017-08-05 Outpatient [facility] [id number] [place] 00:00:00 00:00:00 Health 2017-07-28 2017-07-28 Outpatient [facility] [id number] [place] 00:00:00 00:00:00 [facility] 2017-06-24 2017-06-24 Outpatient [facility] [id number] 36 [place] 00:00:00 00:00:00 Health 2017-06-22 2017-06-22 Emergency [facility] [id number] [place] 21:37:29 21:37:29 Health 2017-06-22 2017-06-22 Emergency [facility] [id number] [place] 21:06:00 21:06:00 Health 2017-06-22 2017-06-22 Outpatient [facility] [id number] [place] 10:02:31 10:02:31 Health 2017-06-09 2017-06-09 Outpatient [facility] [id number] [place] 00:00:00 00:00:00 Health 2017-06-09 2017-06-09 Outpatient [facility] [id number] [place] 00:00:00 00:00:00 [facility] 2017-05-08 2017-05-08 Emergency [facility] [id number] [place] 01:04:44 01:04:44 Health 2017-05-05 2017-05-05 Emergency E [facility] [id number] [address] 08:11:00 08:11:00 [facility] 2017-04-15 2017-04-15 Emergency E [facility] [id number] [address] 09:53:00 09:53:00 [facility] 2017-04-14 2017-04-14 Outpatient [facility] [id number] [place] 13:31:02 13:31:02 Health Results Test Description Test Time Test Comments Results Result Comments Source BASIC METABOLIC PANEL (NA, K, CL, CO2, GLUCOSE, BUN, 2022-04 12:12:49 CREATININE, CA) Test Item Value Reference Range Interpretation Comme nts NA (test code = 5516823192) 132 mmol/L 135-145 L K (test code = 8941115394) 3.4 mmol/L 3.5-5 L CL (test code = 6189006087) 106 mmol/L 98-108 CO2 TOTAL (test code = 2032515276) 22 mmol/L 23-31 L AGAP (test code = 4226509010) 2-16 BUN (test code = 8865851045) 22 mg/dL 7-23 GLUCOSE (test code = 7498617860) 87 mg/dL 70-110 CREATININE (test code = 0.98 mg/dL 0.6-1.25 9886233489) CALCIUM (test code = 5740268216) 7.8 mg/dL 8.6-10.6 L eGFR (test code = 6702639768) mL/min/1.73m2 GILBERTO (test code = GILBERTO) Association of Glomerular Filtration Rate (GFR) and Staging of Kidney Disease* + +-------- + ------+| GFR (mL/min/1.73 m2) ?| With Kidney Damage ?| ?Without Kidney Damage+ +-- + +| ?>90 ?| ?Stage one ?| ? Normal ?+ +------- + -------+| ?60-89 ?| ?Stage two ?| ? Decreased GFR ? + +-------- + ------+| ?30-59 ?| ?Stage three ?| ? Stage three ? + +-------- + ------+| ?15-29 ?| ?Stage four ? | ? Stage four ?+ +------- + -------+| ?<15 (or dialysis) ? ?| ?Stage five ? | ? Stage five ?+ +------- + -------+ *Each stage assumes the associated GFR [...] or abnormalities in imaging tests). Lab Interpretation (test code = Abnormal 40118-7) [facility] 12:12:49 Test Item Value Reference Range Interpretation Comments MAGNESIUM (test code = 5192192173) 1.7 mg/dL 1.7-2.4 Lab Interpretation (test code = Normal 01022-3) [facility]22[facility]28 12:12:29 Test Item Value Reference Range Interpretation Comments PHOSPHORUS (test code = 1411577186) 2.3 mg/dL 2.5-5 L Lab Interpretation (test code = Abnormal 61275-9) [facility] WITH [id number] 11:40:10 Test Item Value Reference Range Interpretation Comments WBC (test code = See_Comment [Automated 6614-2) message] The sy stem which generated this result transmitted reference range : 4.20 - 10.70 10*3/?L. The reference range was not used to interpret this result as normal/abnormal . RBC (test code = See_Comment L [Automated 665-5) message] The sy stem which generated this result transmitted reference range : 4.26 - 5.52 10*6/?L. The reference range was not used to interpret this result as normal/abnormal . HGB (test code = 8.7 g/dL 12.2-16.4 L 718-7) HCT (test code = 25.8 % 38.4-49.3 L 4544-3) MCV (test code = 83.2 fL 81.7-95.6 787-2) MCH (test code = 28.1 pg 26.1-32.7 785-6) MCHC (test code = 33.7 g/dL 31.2-35 786-4) RDW-SD (test code = 46.9 fL 38.5-51.6 28656-6) RDW-CV (test code = 15.4 % 12.1-15.4 788-0) PLT (test code = See_Comment [Automated 777-3) message] The sy stem which generated this result transmitted reference range : 150 - 328 10*3/ ?L. The reference r meredith was not used to interpret this result as normal/abnormal . MPV (test code = 9.3 fL 9.8-13 L 22940-2) NRBC/100 WBC (test See_Comment [Automat ed code = 7153242814) message] The system which generated this result transmitted reference range : 0.0 - 10.0 /100 WBCs. The refer ence range was not u sed to interpret th is result as normal/abnormal . NRBC x10^3 (test code See_Comment [Auto mated = 0894922648) message] The s ystem which generated this result transmitted reference range : 10*3/?L. The reference range was not used to interpret this result as normal/abnormal . GRAN MAT (NEUT) % 69.3 % (test code = 770-8) IMM GRAN % (test code 0.20 % = 0975299217) LYMPH % (test code = 18.2 % 736-9) MONO % (test code = 9.9 % 5905-5) EOS % (test code = 2.0 % 713-8) BASO % (test code = 0.4 % 706-2) GRAN MAT x10^3(ANC) 3.51 10*3/uL 1.99-6.95 (test code = 0557549384) IMM GRAN x10^3 (test 0-0.06 code = 8931113622) LYMPH x10^3 (test code 0.92 10*3/uL 1.09-3.23 L = 731-0) MONO x10^3 (test code 0.50 10*3/uL 0.36-1.02 = 742-7) EOS x10^3 (test code = 0.10 10*3/uL 0.06-0.53 711-2) BASO x10^3 (test code 0.01-0.09 = 704-7) Lab Interpretation Abnormal (test code = 47141-1) [facility]. METABOLIC PANEL ([id number])2022-05-20 01:54:47 Test Item Value Reference Range Interpretation Comments NA (test code = 131 mmol/L 135-145 L 4616482337) K (test code = 4.6 mmol/L 3.5-5 1837230791) CL (test code = 102 mmol/L 98-108 9447849923) CO2 TOTAL (test code = 16 mmol/L 23-31 L 1462244482) AGAP (test code = 2-16 1885741119) BUN (test code = 46 mg/dL 7-23 H 3201020808) GLUCOSE (test code = 98 mg/dL 70-110 8362304763) CREATININE (test code = 1.88 mg/dL 0.6-1.25 H 9820646253) TOTAL BILI (test code = 0.7 mg/dL 0.1-1.4 8459160715) CALCIUM (test code = 9.1 mg/dL 8.6-10.6 7529125499) T PROTEIN (test code = 7.3 g/dL 6.3-8.2 5590603732) ALBUMIN (test code = 4.8 g/dL 3.5-5 7328924916) ALK PHOS (test code = 72 U/L 34-122 4351666275) ALTv (test code = 26 U/L 5-50 1742-6) AST(SGOT) (test code = 27 U/L 13-40 2248571290) eGFR (test code = mL/min/1.73m2 9986131800) GILBERTO (test code = GILBERTO) Association of [...] tests). Lab Interpretation Abnormal (test code = 75274-7) [facility] 01:54:47 Test Item Value Reference Range Interpretation Comments LIPASE (test code = 5711792624) 263 U/L 0-220 H Lab Interpretation (test code = Abnormal 30456-9) [facility] WITH [id number] 01:43:49 Test Item Value Reference Range Interpretation Comments WBC (test code = See_Comment [Automated 1824-2) message] The sy stem which generated this result transmitted reference range : 4.20 - 10.70 10*3/?L. The reference range was not used to interpret this result as normal/abnormal . RBC (test code = See_Comment L [Automated 478-8) message] The sy stem which generated this result transmitted reference range : 4.26 - 5.52 10*6/?L. The reference range was not used to interpret this result as normal/abnormal . HGB (test code = 11.6 g/dL 12.2-16.4 L 718-7) HCT (test code = 34.6 % 38.4-49.3 L 4544-3) MCV (test code = 82.0 fL 81.7-95.6 787-2) MCH (test code = 27.5 pg 26.1-32.7 785-6) MCHC (test code = 33.5 g/dL 31.2-35 786-4) RDW-SD (test code = 46.0 fL 38.5-51.6 99745-9) RDW-CV (test code = 15.4 % 12.1-15.4 788-0) PLT (test code = See_Comment H [Automated 777-3) message] The sy stem which generated this result transmitted reference range : 150 - 328 10*3/ ?L. The reference r meredith was not used to interpret this result as normal/abnormal . MPV (test code = 9.7 fL 9.8-13 L 82246-4) NRBC/100 WBC (test See_Comment [Automat ed code = 0832972550) message] The system which generated this result transmitted reference range : 0.0 - 10.0 /100 WBCs. The refer ence range was not u sed to interpret th is result as normal/abnormal . NRBC x10^3 (test code See_Comment [Auto mated = 0248306524) message] The s ystem which generated this result transmitted reference range : 10*3/?L. The reference range was not used to interpret this result as normal/abnormal . GRAN MAT (NEUT) % 64.5 % (test code = 770-8) IMM GRAN % (test code 0.40 % = 5449246077) LYMPH % (test code = 24.7 % 736-9) MONO % (test code = 9.2 % 5905-5) EOS % (test code = 0.7 % 713-8) BASO % (test code = 0.5 % 706-2) GRAN MAT x10^3(ANC) 5.20 10*3/uL 1.99-6.95 (test code = 0497578873) IMM GRAN x10^3 (test 0.03 10*3/uL 0-0.06 code = 5201442566) LYMPH x10^3 (test code 1.99 10*3/uL 1.09-3.23 = 731-0) MONO x10^3 (test code 0.74 10*3/uL 0.36-1.02 = 742-7) EOS x10^3 (test code = 0.06 10*3/uL 0.06-0.53 711-2) BASO x10^3 (test code 0.04 10*3/uL 0.01-0.09 = 704-7) Lab Interpretation Abnormal (test code = 65571-6) [facility] WITH [id number] 05:06:34 Test Item Value Reference Range Interpretation Comments [...] g/dL 31.2-35 786-4) RDW-SD (test code = 56.7 fL 38.5-51.6 H 82521-8) RDW-CV (test code = 17.4 % 12.1-15.4 H 788-0) PLT (test code = See_Comment [Automated 777-3) message] The sy stem which generated this result transmitted reference range : 150 - 328 10*3/ ?L. The reference r meredith was not used to interpret this result as normal/abnormal . MPV (test code = 9.5 fL 9.8-13 L 84288-0) NRBC/100 WBC (test See_Comment [Automat ed code = 8687547224) message] The system which generated this result transmitted reference range : 0.0 - 10.0 /100 WBCs. The refer ence range was not u sed to interpret th is result as normal/abnormal . NRBC x10^3 (test code See_Comment [Auto mated = 3487811895) message] The s ystem which generated this result transmitted reference range : 10*3/?L. The reference range was not used to interpret this result as normal/abnormal . SEG % (test code = 56 % 33-76 95489-5) LYMPH % (test code = 28 % 14-54 11058-6) MONO % (test code = 12 % 0-4 H 86592-6) EOS % (test code = 4 % 0-3 H 94610-3) ANC (test code = 4.72 10*3/uL 1.99-6.95 753-4) PLT ESTIMATE (test Normal Normal code = 9317-9) Lab Interpretation Abnormal (test code = 01334-9) [facility]. METABOLIC PANEL (18124)2022-04-10 04:19:15 Test Item Value Reference Range Interpretation Comments NA (test code = 137 mmol/L 135-145 8562992839) K (test code = 4.6 mmol/L 3.5-5 3222095867) CL (test code = 108 mmol/L 98-108 4544961222) CO2 TOTAL (test code = 22 mmol/L 23-31 L 1452846148) AGAP (test code = 2-16 8634368250) BUN (test code = 16 mg/dL 7-23 9074802912) GLUCOSE (test code = 96 mg/dL 70-110 2577954081) CREATININE (test code = 1.35 mg/dL 0.6-1.25 H 7580582352) TOTAL BILI (test code = 0.4 mg/dL 0.1-1.6 3528756526) CALCIUM (test code = 9.1 mg/dL 8.6-10.6 3061642003) T PROTEIN (test code = 5.5 g/dL 6.3-8.2 L 3408065418) ALBUMIN (test code = 3.9 g/dL 3.5-5 8231739469) ALK PHOS (test code = 58 U/L 34-122 5456619634) ALTv (test code = 41 U/L 5-50 1742-6) AST(SGOT) (test code = 42 U/L 13-40 H 1168418034) eGFR (test code = mL/min/1.73m2 2124982837) GILBERTO (test code = GILBERTO) Association of [...] tests). Lab Interpretation Abnormal (test code = 89591-6) [facility] 03:33:31 Test Item Value Reference Range Interpretation Comments LIPASE (test code = 3994358024) 90 U/L 0-220 Lab Interpretation (test code = Normal 49138-5) [facility] 12:00:33 Test Item Value Reference Range Interpretation Comments MAGNESIUM (test code = 3491115861) 1.5 mg/dL 1.7-2.4 L Lab Interpretation (test code = Abnormal 39511-1) [facility] METABOLIC PANEL (NA, K, CL, CO2, GLUCOSE, BUN, CREATININE, CA)2022-04-08 11:12:32 Test Item Value Reference Range Interpretation Comments NA (test code = 136 mmol/L 135-145 6838196870) K (test code = 4.1 mmol/L 3.5-5 3998903812) CL (test code = 108 mmol/L 98-108 5747514590) CO2 TOTAL (test code = 25 mmol/L 23-31 0426103697) AGAP (test code = 2-16 3598996005) BUN (test code = 10 mg/dL 7-23 8558868058) GLUCOSE (test code = 82 mg/dL 70-110 5928357787) CREATININE (test code = 1.10 mg/dL 0.6-1.25 8748141534) CALCIUM (test code = 8.3 mg/dL 8.6-10.6 L 2131316067) eGFR (test code = mL/min/1.73m2 4096459284) GILBERTO (test code = GILBERTO) Association of [...] tests). Lab Interpretation Abnormal (test code = 22401-5) [facility]22-[facility]16 11:12:32 Test Item Value Reference Range Interpretation Comments PHOSPHORUS (test code = 7283085590) 2.5 mg/dL 2.5-5 Lab Interpretation (test code = Normal 29273-0) [facility] [id number] 10:47:27 Test Item Value Reference Range Interpretation [...] (test code = 54.4 fL 38.5-51.6 H 65828-0) RDW-CV (test code = 16.9 % 12.1-15.4 H 788-0) PLT (test code = See_Comment [Automated 777-3) message] The sy stem which generated this result transmitted reference range : 150 - 328 10*3/ ?L. The reference r meredith was not used to interpret this result as normal/abnormal . MPV (test code = 9.7 fL 9.8-13 L 92824-5) NRBC/100 WBC (test See_Comment [Automat ed code = 5627261501) message] The system which generated this result transmitted reference range : 0.0 - 10.0 /100 WBCs. The refer ence range was not u sed to interpret th is result as normal/abnormal . NRBC x10^3 (test code See_Comment [Auto mated = 1486877009) message] The s ystem which generated this result transmitted reference range : 10*3/?L. The reference range was not used to interpret this result as normal/abnormal . GRAN MAT (NEUT) % 54.7 % (test code = 770-8) IMM GRAN % (test code 0.40 % = 9794944458) LYMPH % (test code = 33.8 % 736-9) MONO % (test code = 8.7 % 5905-5) EOS % (test code = 2.0 % 713-8) BASO % (test code = 0.4 % 706-2) GRAN MAT x10^3(ANC) 2.95 10*3/uL 1.99-6.95 (test code = 2480081149) IMM GRAN x10^3 (test 0-0.06 code = 1554036007) LYMPH x10^3 (test code 1.82 10*3/uL 1.09-3.23 = 731-0) MONO x10^3 (test code 0.47 10*3/uL 0.36-1.02 = 742-7) EOS x10^3 (test code = 0.11 10*3/uL 0.06-0.53 711-2) BASO x10^3 (test code 0.01-0.09 = 704-7) Lab Interpretation Abnormal (test code = 90502-3) [facility] METABOLIC PANEL (NA, K, CL, CO2, GLUCOSE, BUN, CREATININE, CA)2022-04-06 09:47:17 Test Item Value Reference Range Interpretation Comments NA (test code = 134 mmol/L 135-145 L 7518176072) K (test code = 4.2 mmol/L 3.5-5 Slight 5414142714) hemolysis CL (test code = 114 mmol/L 98-108 H 3745931747) CO2 TOTAL (test code 16 mmol/L 23-31 L = 0759186305) AGAP (test code = 2-16 0947293989) BUN (test code = 16 mg/dL 7-23 Slight 7556546193) hemolysis GLUCOSE (test code = 79 mg/dL 70-110 3230928468) CREATININE (test code 1.00 mg/dL 0.6-1.25 = 8938510947) CALCIUM (test code = 7.5 mg/dL 8.6-10.6 L 3266683640) eGFR (test code = mL/min/1.73m2 6541294748) GILBERTO (test code = GILBERTO) Association of [...] tests). Lab Interpretation Abnormal (test code = 32364-7) [facility] 09:47:17 Test Item Value Reference Range Interpretation Comments MAGNESIUM (test code = 6085717323) 1.2 mg/dL 1.7-2.4 L Lab Interpretation (test code = Abnormal 03522-9) [facility] Whole [id number] 09:16:49 Test Item Value Reference Range Interpretation Comments LACTIC ACID (test code = 1.35 mmol/L 0.5-2.2 6024228481) Lab Interpretation (test code = Normal 97616-6) [facility] WITH [id number] 09:13:32 Test Item Value Reference Range Interpretation [...] (test code = 52.4 fL 38.5-51.6 H 08705-2) RDW-CV (test code = 16.6 % 12.1-15.4 H 788-0) PLT (test code = See_Comment [Automated 777-3) message] The sy stem which generated this result transmitted reference range : 150 - 328 10*3/ ?L. The reference r meredith was not used to interpret this result as normal/abnormal . MPV (test code = 10.0 fL 9.8-13 21753-3) NRBC/100 WBC (test See_Comment [Automat ed code = 2231843629) message] The system which generated this result transmitted reference range : 0.0 - 10.0 /100 WBCs. The refer ence range was not u sed to interpret th is result as normal/abnormal . NRBC x10^3 (test code See_Comment [Auto mated = 1308956462) message] The s ystem which generated this result transmitted reference range : 10*3/?L. The reference range was not used to interpret this result as normal/abnormal . GRAN MAT (NEUT) % 48.6 % (test code = 770-8) IMM GRAN % (test code 0.20 % = 3931293954) LYMPH % (test code = 39.4 % 736-9) MONO % (test code = 9.3 % 5905-5) EOS % (test code = 1.9 % 713-8) BASO % (test code = 0.6 % 706-2) GRAN MAT x10^3(ANC) 2.36 10*3/uL 1.99-6.95 (test code = 6922209961) IMM GRAN x10^3 (test 0-0.06 code = 4478955844) LYMPH x10^3 (test code 1.91 10*3/uL 1.09-3.23 = 731-0) MONO x10^3 (test code 0.45 10*3/uL 0.36-1.02 = 742-7) EOS x10^3 (test code = 0.09 10*3/uL 0.06-0.53 711-2) BASO x10^3 (test code 0.03 10*3/uL 0.01-0.09 = 704-7) Lab Interpretation Abnormal (test code = 51041-6) [facility] 07:34:48 Test Item Value Reference Range Interpretation Comments MAGNESIUM (test code = 7165988329) 1.8 mg/dL 1.7-2.4 Lab Interpretation (test code = Normal 65394-1) [facility] [id number] 18:40:18 Test Item Value Reference Range Interpretation Comments PH (test code = 7.32-7.42 L 2828650011) PCO2 PANKAJ (test code = See_Comment [Auto mated message] 6196159117) The system whic h generated this result transmitted ref erence range: 41 - 51 mmHg. The reference r meredith was not used to interpret this result as normal/abnor mal. PO2 PANKAJ (test code = See_Comment L [Autom ated message] 0784979038) The system [employer] generated this result transmitted ref erence range: 25 - 40 mmHg. The reference r meredith was not used to interpret this result as normal/abnor mal. HCO3 PANKAJ (test code = See_Comment L [Auto mated message] 9322760515) The system [employer] generated this result transmitted ref erence range: 24 - 28 mEq/L. The reference r meredith was not used to interpret this result as normal/abnor mal. AC VBE(BEAKER) (test mEq/L code = 0258816698) Lab Interpretation (test Abnormal code = 45441-7) [facility] (NA, K, CL, CO2, GLUCOSE, BUN, CREATININE, CA)2022-04-03 18:33:26 Test Item Value Reference Range Interpretation Comments NA (test code = 129 mmol/L 135-145 L 8680896940) K (test code = 3.3 mmol/L 3.5-5 L 3448397275) CL (test code = 100 mmol/L 98-108 4964660036) CO2 TOTAL (test code = 19 mmol/L 23-31 L 9352555008) AGAP (test code = 2-16 6696470524) BUN (test code = 49 mg/dL 7-23 H 7451341223) GLUCOSE (test code = 75 mg/dL 70-110 8358151282) CREATININE (test code = 2.55 mg/dL 0.6-1.25 H 3913270473) CALCIUM (test code = 8.6 mg/dL 8.6-10.6 7208871502) eGFR (test code = mL/min/1.73m2 1989432328) GILBERTO (test code = GILBERTO) Association of [...] tests). Lab Interpretation Abnormal (test code = 81009-9) [facility] OR [id number] 15:45:31 Test Item Value Reference Range Interpretation Comments OSMOLALITY (test code = See_Comment [Au tomated message] 2692-2) The system [employer] h generated this result transmitted ref erence range: 278 - 30 5 mOsm/kg. The re ference range was not u sed to interpret this result as normal/abnor mal. Lab Interpretation (test Normal code = 99497-9) [facility] [id number] 11:27:34 Test Item Value Reference Range Interpretation Comments WBC (test code = See_Comment [Automated 8390-2) message] The sy stem which generated this [...] RDW-SD (test code = 48.7 fL 38.5-51.6 72425-5) RDW-CV (test code = 15.9 % 12.1-15.4 H 788-0) PLT (test code = See_Comment [Automated 777-3) message] The sy stem which generated this result transmitted reference range : 150 - 328 10*3/ ?L. The reference r meredith was not used to interpret this result as normal/abnormal . MPV (test code = 9.4 fL 9.8-13 L 04135-2) NRBC/100 WBC (test See_Comment [Automat ed code = 3379513088) message] The system which generated this result transmitted reference range : 0.0 - 10.0 /100 WBCs. The refer ence range was not u sed to interpret th is result as normal/abnormal . NRBC x10^3 (test code See_Comment [Auto mated = 1401753485) message] The s ystem which generated this result transmitted reference range : 10*3/?L. The reference range was not used to interpret this result as normal/abnormal . GRAN MAT (NEUT) % 56.0 % (test code = 770-8) IMM GRAN % (test code 0.50 % = 3910061981) LYMPH % (test code = 33.2 % 736-9) MONO % (test code = 8.6 % 5905-5) EOS % (test code = 1.1 % 713-8) BASO % (test code = 0.6 % 706-2) GRAN MAT x10^3(ANC) 3.64 10*3/uL 1.99-6.95 (test code = 3682177536) IMM GRAN x10^3 (test 0.03 10*3/uL 0-0.06 code = 8287315331) LYMPH x10^3 (test code 2.16 10*3/uL 1.09-3.23 = 731-0) MONO x10^3 (test code 0.56 10*3/uL 0.36-1.02 = 742-7) EOS x10^3 (test code = 0.07 10*3/uL 0.06-0.53 711-2) BASO x10^3 (test code 0.04 10*3/uL 0.01-0.09 = 704-7) Lab Interpretation Abnormal (test code = 12834-6) [facility] Metabolic Panel (NA, K, CL, CO2, GLUCOSE, BUN, CREATININE, CA)2022-04-03 10:08:59 Test Item Value Reference Range Interpretation Comments NA (test code = 125 mmol/L 135-145 L 5520977719) K (test code = 3.7 mmol/L 3.5-5 8685801244) CL (test code = 96 mmol/L 98-108 L 9727941099) CO2 TOTAL (test code = 15 mmol/L 23-31 L 7767047601) AGAP (test code = 2-16 5742758359) BUN (test code = 50 mg/dL 7-23 H 4871400624) GLUCOSE (test code = 86 mg/dL 70-110 4617395481) CREATININE (test code = 3.86 mg/dL 0.6-1.25 H 9837420702) CALCIUM (test code = 8.6 mg/dL 8.6-10.6 2287178719) eGFR (test code = mL/min/1.73m2 3053021112) GILBERTO (test code = GILBERTO) Association of [...] tests). Lab Interpretation Abnormal (test code = 58533-7) [facility] Acid Whole [id number] 04:09:02 Test Item Value Reference Range Interpretation Comments LACTIC ACID (test code = 1.54 mmol/L 0.5-2.2 5326370300) Lab Interpretation (test code = Normal 76272-3) [facility] Acid Whole [id number] 00:25:08 Test Item Value Reference Range Interpretation Comments LACTIC ACID (test code = 2.50 mmol/L 0.5-2.2 H 8366667831) Lab Interpretation (test code = Abnormal 08854-1) [facility] WITH [id number] 20:19:45 Test Item Value Reference Range Interpretation Comments WBC (test code = See_Comment H [Automated 9190-2) message] The system which generated this result transmit dain reference range : 4.20 - 10.70 10*3/?L. The reference range was not used to interpret this result as normal/abnormal . RBC (test code = See_Comment [Automated 579-8) message] The system which generated this result [...] RDW-SD (test code = 49.8 fL 38.5-51.6 70812-2) RDW-CV (test code = 16.4 % 12.1-15.4 H 788-0) PLT (test code = See_Comment H [Automated 777-3) message] The system which generated this result transmit dain reference range : 150 - 328 10*3/ ?L. The reference range was not u sed to interpret th is result as normal/abnormal . MPV (test code = 10.7 fL 9.8-13 48018-3) NRBC/100 WBC (test See_Comment [Automat ed code = 2314368500) message] The system which generated this result transmit dain reference range : 0.0 - 10.0 /100 WBCs. The reference range was not used to interpret this result as normal/abnormal . NRBC x10^3 (test code See_Comment [Auto mated = 0384546695) message] The system which generated this result transmit dain reference range : 10*3/?L. The reference range was not used to interpret this result as normal/abnormal . GRAN MAT (NEUT) % 73.4 % (test code = 770-8) IMM GRAN % (test code 0.60 % = 9085482276) LYMPH % (test code = 17.2 % 736-9) MONO % (test code = 8.2 % 5905-5) EOS % (test code = 0.2 % 713-8) BASO % (test code = 0.4 % 706-2) GRAN MAT x10^3(ANC) 10.17 10*3/uL 1.99-6.95 H (test code = 3024081756) IMM GRAN x10^3 (test 0.09 10*3/uL 0-0.06 H code = 6943953430) LYMPH x10^3 (test code 2.38 10*3/uL 1.09-3.23 = 731-0) MONO x10^3 (test code 1.13 10*3/uL 0.36-1.02 H = 742-7) EOS x10^3 (test code = 0.03 10*3/uL 0.06-0.53 L 711-2) BASO x10^3 (test code 0.05 10*3/uL 0.01-0.09 = 704-7) Lab Interpretation Abnormal (test code = 18782-5) [id number] Test Item Value Reference Range Interpretation [...] = MX#) 0.5 k/mm3 0.1-0.8 N TROPONIN-I [id number] 15:07:00 Test Item Value Reference Range Interpretation Comments TROPONIN-I RAPID 0.00 ng/mL 0.00-0.08 N Performed b y certified (test code = 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 Rat her, the patient kalani al presentation (h istory, physical exam) and ECGshould be us ed in conjunction wit h troponin in thediagnosti c evaluation of s uspected myocardial infa rction. Aserial samplin g protocol is recommended to facilitate the identification of temporal changes in trop onin levels characteristic of GA. BASIC METABOLIC [id number] 14:56:00 Test Item Value Reference Range Interpretation [...] MG/DL 70-110 N - XR CHEST 1 [id number] 00:00:00 [facility] 1970 Sex: M FAX: Sabi Urias MD [phone] Joes: [place] St: REG Name: HOANG JOSEPH FSED : 1970 Age/S: 52/M [address] [facility] Unit #: [id number] Loc: [place], [place] [address] Phys: Sabi Urias MD Acct: [id number] DisDate: Status: REG ER PHONE #: Exam Date: 03/29/2022 150 FAX #: Reason: Weakness EXAMS: CPT CODE: [id number] XR CHEST 1 V 53428 PROCEDURE INFORMATION: Exam: XR Chest Exam date [...] 03/29/2022 (1531) PAGE 1 Signed ReportHEPATIC FUNCTION [id number] 06:45:03 Test Item Value Reference Range Interpretation [...] (test code = 13 U/L 6-55 347) Dictaphone Operator KEN HOOD WBASIC METABOLIC [id number] 06:45:02 Test Item Value Reference Range Interpretation [...] S NOT APPLICABLE FOR DIALYSIS PATIEN TS. Dictaphone Operator KEN HOOD WCBC W/PLT COUNT & AUTO [id number] 06:26:54 Test Item Value Reference Range Interpretation [...] (BEAKER) (test code = 2801) U/S, RENAL, [id number] 19:23:00Reason for exam:->acute kidney injury [facility] : 1970 Sex: MFINAL REPORT [...] SARS-Co V-2 (test code = target nucleic 69139-9) acids are not detected in thi s [...] revoked sooner. Fact Sheet for Healthcare Providers: https://www.[employer]/Documents/Xp ert%20Xpress%20SAR S%20CoV-2/Fact%20S heets/302-3802%20S ARS-COV-2%20HEALTH CARE%20PROVIDERS%2 0FACT%20SHEET.pdf Fact Sheet for Healthcare Patients: https://www.[employer]/Documents/Xp ert%20Xpress%20SAR S%20CoV-2/Fact%20S heets/302-3801%20S ARS-COV-2%20PATIEN T%20FACT%20SHEET.p df Lab Interpretation Normal (test code = 61194-1) [facility] 19:17:07 Test Item Value Reference Interpretation Comments Range SARS-COV2/RT-PCR Negative Negative The SARS-Co V-2 (test code = target nucleic 40084-3) acids are not detected in thi s [...] revoked sooner. Fact Sheet for Healthcare Providers: https://www.[employer]/Documents/Xp ert%20Xpress%20SAR S%20CoV-2/Fact%20S heets/302-3802%20S ARS-COV-2%20HEALTH CARE%20PROVIDERS%2 0FACT%20SHEET.pdf Fact Sheet for Healthcare Patients: https://www.[employer]/Documents/Xp ert%20Xpress%20SAR S%20CoV-2/Fact%20S heets/302-3801%20S ARS-COV-2%20PATIEN T%20FACT%20SHEET.p df Lab Interpretation Normal (test code = 40114-9) [facility]2022-03-06 19:17:07 Test Item Value Reference Interpretation Comments Range SARS-COV2/RT-PCR Negative Negative The SARS-Co V-2 (test code = target nucleic 02052-0) acids are not detected in thi s [...] om SARS-CoV-2 in a nasopharyngeal swab specimen collemclaren flint from individual s suspected of COVID-19 by [...] revoked sooner. Fact Sheet for Healthcare Providers: https://www.[employer]/Documents/Xp ert%20Xpress%20SAR S%20CoV-2/Fact%20S heets/302-3802%20S ARS-COV-2%20HEALTH CARE%20PROVIDERS%2 0FACT%20SHEET.pdf Fact Sheet for Healthcare Patients: https://www.[employer]/Documents/Xp ert%20Xpress%20SAR S%20CoV-2/Fact%20S heets/302-3801%20S ARS-COV-2%20PATIEN T%20FACT%20SHEET.p df Lab Interpretation Normal (test code = 67294-6) [facility]2022-03-06 19:17:07 Test Item Value Reference Interpretation Comments Range SARS-COV2/RT-PCR Negative Negative The SARS-Co V-2 (test code = target nucleic 93479-5) acids are not detected in thi s [...] revoked sooner. Fact Sheet for Healthcare Providers: https://www.[employer]/Documents/Xp ert%20Xpress%20SAR S%20CoV-2/Fact%20S heets/302-3802%20S ARS-COV-2%20HEALTH CARE%20PROVIDERS%2 0FACT%20SHEET.pdf Fact Sheet for Healthcare Patients: https://www.[employer]/Documents/Xp ert%20Xpress%20SAR S%20CoV-2/Fact%20S heets/302-3801%20S ARS-COV-2%20PATIEN T%20FACT%20SHEET.p df Lab Interpretation Normal (test code = 15480-8) [facility]2022-03-06 19:17:07 Test Item Value Reference Interpretation Comments Range SARS-COV2/RT-PCR Negative Negative The SARS-Co V-2 (test code = target nucleic 12794-7) acids are not detected in thi s [...] revoked sooner. Fact Sheet for Healthcare Providers: https://www.[employer]/Documents/Xp ert%20Xpress%20SAR S%20CoV-2/Fact%20S heets/3023802%20S ARS-COV-2%20HEALTH CARE%20PROVIDERS%2 0FACT%20SHEET.pdf Fact Sheet for Healthcare Patients: https://www.[employer]/Documents/Xp ert%20Xpress%20SAR S%20CoV-2/Fact%20S heets/302-3801%20S ARS-COV-2%20PATIEN T%20FACT%20SHEET.p df Lab Interpretation Normal (test code = 54463-6) [facility]2022-03-06 19:17:07 Test Item Value Reference Interpretation Comments Range SARS-COV2/RT-PCR Negative Negative The SARS-Co V-2 (test code = target nucleic 24883-6) acids are not detected in thi s [...] revoked sooner. Fact Sheet for Healthcare Providers: https://www.[employer]/Documents/Xp ert%20Xpress%20SAR S%20CoV-2/Fact%20S heets/3023802%20S ARS-COV-2%20HEALTH CARE%20PROVIDERS%2 0FACT%20SHEET.pdf Fact Sheet for Healthcare Patients: https://www.[employer]/Documents/Xp ert%20Xpress%20SAR S%20CoV-2/Fact%20S heets/302-3801%20S ARS-COV-2%20PATIEN T%20FACT%20SHEET.p df Lab Interpretation Normal (test code = 70835-5) [facility]2022-03-06 19:17:07 Test Item Value Reference Interpretation Comments Range SARS-COV2/RT-PCR Negative Negative The SARS-Co V-2 (test code = target nucleic 35240-1) acids are not detected in thi s [...] revoked sooner. Fact Sheet for Healthcare Providers: https://www.[employer]/Documents/Xp ert%20Xpress%20SAR S%20CoV-2/Fact%20S heets/302-3802%20S ARS-COV-2%20HEALTH CARE%20PROVIDERS%2 0FACT%20SHEET.pdf Fact Sheet for Healthcare Patients: https://www.[employer]/Documents/Xp ert%20Xpress%20SAR S%20CoV-2/Fact%20S heets/302-3801%20S ARS-COV-2%20PATIEN T%20FACT%20SHEET.p df Lab Interpretation Normal (test code = 49001-8) [facility]2022-03-06 19:17:07 Test Item Value Reference Interpretation Comments Range SARS-COV2/RT-PCR Negative Negative The SARS-Co V-2 (test code = target nucleic 08292-9) acids are not detected in thi s [...] revoked sooner. Fact Sheet for Healthcare Providers: https://www.[employer]/Documents/Xp ert%20Xpress%20SAR S%20CoV-2/Fact%20S heets/3023802%20S ARS-COV-2%20HEALTH CARE%20PROVIDERS%2 0FACT%20SHEET.pdf Fact Sheet for Healthcare Patients: https://www.[employer]/Documents/Xp ert%20Xpress%20SAR S%20CoV-2/Fact%20S heets/3023801%20S ARS-COV-2%20PATIEN T%20FACT%20SHEET.p df Lab Interpretation Normal (test code = 65146-7) [facility]2022-03-06 19:17:07 Test Item Value Reference Interpretation Comments Range SARS-COV2/RT-PCR Negative Negative The SARS-Co V-2 (test code = target nucleic 16781-2) acids are not detected in thi s [...] revoked sooner. Fact Sheet for Healthcare Providers: https://www.[employer]/Documents/Xp ert%20Xpress%20SAR S%20CoV-2/Fact%20S heets/302-3802%20S ARS-COV-2%20HEALTH CARE%20PROVIDERS%2 0FACT%20SHEET.pdf Fact Sheet for Healthcare Patients: https://www.[employer]/Documents/Xp ert%20Xpress%20SAR S%20CoV-2/Fact%20S heets/302-3801%20S ARS-COV-2%20PATIEN T%20FACT%20SHEET.p df Lab Interpretation Normal (test code = 66212-7) [facility]2022-03-06 19:17:07 Test Item Value Reference Interpretation Comments Range SARS-COV2/RT-PCR Negative Negative The SARS-Co V-2 (test code = target nucleic 88345-6) acids are not detected in thi s [...] revoked sooner. Fact Sheet for Healthcare Providers: https://www.[employer]/Documents/Xp ert%20Xpress%20SAR S%20CoV-2/Fact%20S heets/302-3802%20S ARS-COV-2%20HEALTH CARE%20PROVIDERS%2 0FACT%20SHEET.pdf Fact Sheet for Healthcare Patients: https://www.[employer]/Documents/Xp ert%20Xpress%20SAR S%20CoV-2/Fact%20S heets/302-3801%20S ARS-COV-2%20PATIEN T%20FACT%20SHEET.p df Lab Interpretation Normal (test code = 09404-3) [facility]2022-03-06 19:17:07 Test Item Value Reference Interpretation Comments Range SARS-COV2/RT-PCR Negative Negative The SARS-Co V-2 (test code = target nucleic 01131-8) acids are not detected in thi s [...] revoked sooner. Fact Sheet for Healthcare Providers: https://www.[employer]/Documents/Xp ert%20Xpress%20SAR S%20CoV-2/Fact%20S heets/302-3802%20S ARS-COV-2%20HEALTH CARE%20PROVIDERS%2 0FACT%20SHEET.pdf Fact Sheet for Healthcare Patients: https://www.[employer]/Documents/Xp ert%20Xpress%20SAR S%20CoV-2/Fact%20S heets/302-3801%20S ARS-COV-2%20PATIEN T%20FACT%20SHEET.p df Lab Interpretation Normal (test code = 51640-3) [facility]2022-03-06 19:17:07 Test Item Value Reference Interpretation Comments Range SARS-COV2/RT-PCR Negative Negative The SARS-Co V-2 (test code = target nucleic 06483-0) acids are not detected in thi s [...] revoked sooner. Fact Sheet for Healthcare Providers: https://www.[employer]/Documents/Xp ert%20Xpress%20SAR S%20CoV-2/Fact%20S heets/302-3802%20S ARS-COV-2%20HEALTH CARE%20PROVIDERS%2 0FACT%20SHEET.pdf Fact Sheet for Healthcare Patients: https://www.[employer]/Documents/Xp ert%20Xpress%20SAR S%20CoV-2/Fact%20S heets/302-3801%20S ARS-COV-2%20PATIEN T%20FACT%20SHEET.p df Lab Interpretation Normal (test code = 98310-8) [facility])2022-03-06 19:17:07 Test Item Value Reference Range Interpretation Comments SARS-COV2/RT-PCR Negative Negative The SARS-Co V-2 target (test code = nucleic acids a re not 0520928) detected in thi s specimen. Negative result [...] revoked sooner. Fact Sheet for Healthcare Providers: https://www.[employer]/Documents/Xpert%20Xpress%20SARS%20CoV-2/Fact%20Sheets/3023802%12EPXR-WXL-3%20 HEALTHCARE%20PROVIDERS%20FACT%20SHEET.pdf Fact Sheet for Healthcare Patients: https://www.[employer]/Documents/Xpert%20Xp ress%20SARS%20CoV-2/Fact%20Sheets/3023801%26XNVM-CHV-5%20PATIENT%20FACT%20SHEET .pdfCREATINE KINASE (CK)2022-03-06 16:19:14 Test Item Value Reference Range Interpretation Comments CREATINE KINASE TOTAL (BEAKER) (test 141 U/L 29-200 code = 380) Dictaphone Operator ID - BST4, [id number] 15:13:16 Test Item Value Reference Range Interpretation Comments FREE T4 (BEAKER) (test code = 655) 0.95 ng/dL 0.70-1.48 Dictaphone Operator ID - BSTSH/FREE T4 IF [id number] 15:13:16 Test Item Value Reference Range Interpretation Comments THYROID STIMULATING HORMONE 2.060 uIU/mL 0.350-4.940 (BEAKER) (test code = 772) Dictaphone Operator ID - BSB-TYPE NATRIURETIC FACTOR (BNP)2022-03-06 14:26:30 Test Item Value Reference Range Interpretation Comments B-TYPE NATRIURETIC PEPTIDE (BEAKER) < pg/mL 0-100 (test code = 700) Dictaphone Operator ID - JSHIGH SENSITIVITY TROPONIN [id number] 14:14:54 Test Item Value Reference Range Interpretation Comments HIGH SENSITIVITY < pg/ml See_Comment [Automated message] TROPONIN I (test code = The system which 2862713) generated this result transmitted ref erence range: <=35. Th e reference range was not used to interpr et this result as normal/abnormal . Dictaphone Operator ID - JSThe AD TERMINAL MAKEUP OPERATOR STAT High Sensitivity Troponin-I results should be used in conjunctionwith other diagnostic information such as ECG, clinical observations and information, and patient symptoms to aid in the diagnosis of GA.RAD, CHEST, 1 VIEW, NON [id number] 14:10:00Reason for exam:- >NEUROLOGIC PROBLEMShould this be performed at the bedside?->Yes [facility] 1970 Sex: [...] Brown Verified Date/Time: 03/06/2022 14:10:44 REHENSIVE METABOLIC [id number] 14:08:22 Test Item Value Reference Range Interpretation [...] S NOT APPLICABLE FOR DIALYSIS PATIEN TS. Dictaphone Operator ID - [id number] 14:07:49 Test Item Value Reference Range Interpretation Comments MAGNESIUM (BEAKER) (test code = 2.0 mg/dL 1.6-2.6 627) Dictaphone Operator ID - [id number] 14:07:49 Test Item Value Reference Range Interpretation Comments PHOSPHORUS (BEAKER) (test code = 5.6 mg/dL 2.3-4.7 H 604) Dictaphone Operator ID - JSLACTIC ACID, [id number] 13:51:04 Test Item Value Reference Range Interpretation Comments LACTATE BLOOD VENOUS 1.32 mmol/L 0.50-2.20 Specime n slightly (2) (BEAKER) (test hemolyzed code = 2872) Dictaphone Operator ID - JSCBC W/PLT COUNT & AUTO [id number] 13:47:24 Test Item Value Reference Range Interpretation [...] (BEAKER) (test code = 2801) Coronavirus, CoVID-19, [id number] 01:07:20 Test Item Value Reference Range Interpretation Comments COVID-19 (SARS-COV-2) Not Detected Not Detected INTERP RETATION: No (test code = 56350-0) detect able levels of SARS-CoV-2 Coronavirus (COVID-19) [...] SARS-CoV-2 mole cular diagnostic assa y utilizes Boiler Riveter Mediated Amplification ( TMA) technology to r apidly detect the SARS -CoV-2 (COVID-19) viru s from respiratory adriana ples. In accordance w ith the FDA's kamran nce document "Polic y for Diagnostic Test s for Coronavirus Disease-2019 du [facility] the Public [facility] Emergency", thi s test was developed, and its performance characteristics were verified by the [facility] molecular diagn ostics laboratory and is authorized for clinical diagno stic use. This labor atory is certified un [place] the Clinical Laboratory Improvement Amendments (CLI A) as qualified to pe rform high complexity clinical labora tory testing. Lab Interpretation Normal (test code = 61931-6) [facility] [id number] 01:07:20 Test Item Value Reference Range Interpretation Comments COVID-19 (SARS-COV-2) Not Detected Not Detected INTERP RETATION: No (test code = 30827-0) detect able levels of SARS-CoV-2 Coronavirus (COVID-19) [...] SARS-CoV-2 mole cular diagnostic assa y utilizes Boiler Riveter Mediated Amplification ( TMA) technology to r apidly detect the SARS -CoV-2 (COVID-19) viru s from respiratory adriana ples. In accordance w ith the FDA's kamran nce document "Polic y for Diagnostic Test s for Coronavirus Disease-2019 du [facility] the [facility] Emergency", thi s test was developed, and its performance characteristics were verified by the [facility] molecular diagn ostics laboratory and is authorized for clinical diagno stic use. This labor atory is certified un [place] the Clinical Laboratory Improvement Amendments (CLI A) as qualified to pe rform high complexity clinical labora tory testing. Lab Interpretation Normal (test code = 15317-9) [facility], CoVID-19, [id number] 01:07:20 Test Item Value Reference Range Interpretation Comments COVID-19 (SARS-COV-2) Not Detected Not Detected INTERP RETATION: No (test code = 38518-5) detect able levels of SARS-CoV-2 Coronavirus (COVID-19) [...] SARS-CoV-2 mole cular diagnostic assa y utilizes Boiler Riveter Mediated Amplification ( TMA) technology to r apidly detect the SARS -CoV-2 (COVID-19) viru s from respiratory adriana ples. In accordance w ith the FDA's kamran nce document "Polic y for Diagnostic Test s for Coronavirus Disease-2019 du [place] the [facility]", thi s test was developed, and its performance characteristics were verified by the [facility] molecular diagn ostics laboratory and is authorized for clinical diagno stic use. This labor atory is certified un [place] the Clinical Laboratory Improvement Amendments (CLI A) as qualified to pe rform high complexity clinical labora tory testing. Lab Interpretation Normal (test code = 59059-2) [facility], CoVID-19, [id number] 01:07:20 Test Item Value Reference Range Interpretation Comments COVID-19 (SARS-COV-2) Not Detected Not Detected INTERP RETATION: No (test code = 16271-8) detect able levels of SARS-CoV-2 Coronavirus (COVID-19) [...] SARS-CoV-2 mole cular diagnostic assa y utilizes Boiler Riveter Mediated Amplification ( TMA) technology to r apidly detect the SARS -CoV-2 (COVID-19) viru s from respiratory adriana ples. In accordance w ith the FDA's kamran nce document "Polic y for Diagnostic Test s for Coronavirus Disease-2019 du [place] the Public [facility] Emergency", amalia s test was developed, and its performance characteristics were verified by the [facility] molecular diagn ostics laboratory and is authorized for clinical diagno stic use. This labor atory is certified un [place] the Clinical Laboratory Improvement Amendments (CLI A) as qualified to pe rform high complexity clinical labora tory testing. Lab Interpretation Normal (test code = 26315-7) [facility], CoVID-19, [id number] 01:07:20 Test Item Value Reference Range Interpretation Comments COVID-19 (SARS-COV-2) Not Detected Not Detected INTERP RETATION: No (test code = 13926-6) detect able levels of SARS-CoV-2 Coronavirus (COVID-19) [...] SARS-CoV-2 mole cular diagnostic assa y utilizes Boiler Riveter Mediated Amplification ( TMA) technology to r apidly detect the SARS -CoV-2 (COVID-19) viru s from respiratory adriana ples. In accordance w ith the FDA's kamran nce document "Polic y for Diagnostic Test s for Coronavirus Disease-2019 du [place] the Public [facility]", amalia s test was developed, and its performance characteristics were verified by the [facility] molecular diagn ostics laboratory and is authorized for clinical diagno stic use. This labor atory is certified un [place] the Clinical Laboratory Improvement Amendments (CLI A) as qualified to pe rform high complexity clinical labora tory testing. Lab Interpretation Normal (test code = 43494-4) [facility], CoVID-19, [id number] 01:07:20 Test Item Value Reference Range Interpretation Comments COVID-19 (SARS-COV-2) Not Detected Not Detected INTERP RETATION: No (test code = 45631-7) detect able levels of SARS-CoV-2 Coronavirus (COVID-19) [...] SARS-CoV-2 mole cular diagnostic assa y utilizes Boiler Riveter Mediated Amplification ( TMA) technology to r apidly detect the SARS -CoV-2 (COVID-19) viru s from respiratory adriana ples. In accordance w ith the FDA's kamran nce document "Polic y for Diagnostic Test s for Coronavirus Disease-2019 du [facility] the [facility] Emergency", thi s test was developed, and its performance characteristics were verified by the [facility] molecular diagn ostics laboratory and is authorized for clinical diagno stic use. This labor atory is certified un [place] the Clinical Laboratory Improvement Amendments (CLI A) as qualified to pe rform high complexity clinical labora tory testing. Lab Interpretation Normal (test code = 98084-3) [facility]avirus, CoVID-19, [id number] 01:07:20 Test Item Value Reference Range Interpretation Comments COVID-19 (SARS-COV-2) Not Detected Not Detected INTERP RETATION: No (test code = 91741-6) detect able levels of SARS-CoV-2 Coronavirus (COVID-19) [...] SARS-CoV-2 mole cular diagnostic assa y utilizes Boiler Riveter Mediated Amplification ( TMA) technology to r apidly detect the SARS -CoV-2 (COVID-19) viru s from respiratory adriana ples. In accordance w ith the FDA's kamran nce document "Polic y for Diagnostic Test s for Coronavirus Disease-2019 du [facility] the [facility] Emergency", thi s test was developed, and its performance characteristics were verified by the [facility] molecular diagn ostics laboratory and is authorized for clinical diagno stic use. This labor atory is certified un est[place] the Clinical Laboratory Improvement Amendments (CLI A) as qualified to pe rform high complexity clinical labora tory testing. Lab Interpretation Normal (test code = 25390-0) [facility] HealthCoronavirus, CoVID-19, [id number] 01:07:20 Test Item Value Reference Range Interpretation Comments COVID-19 (SARS-COV-2) Not Detected Not Detected INTERP RETATION: No (test code = 31443-7) detect able levels of SARS-CoV-2 Coronavirus (COVID-19) [...] SARS-CoV-2 mole cular diagnostic assa y utilizes Boiler Riveter Mediated Amplification ( TMA) technology to r apidly detect the SARS -CoV-2 (COVID-19) viru s from respiratory adriana ples. In accordance w ith the FDA's kamran nce document "Polic y for Diagnostic Test s for Coronavirus Disease-2019 du [facility] the [facility] Emergency", thi s test was developed, and its performance characteristics were verified by the [facility] molecular diagn ostics laboratory and is authorized for clinical diagno stic use. This labor atory is certified un [place] the Clinical Laboratory Improvement Amendments (CLI A) as qualified to pe rform high complexity clinical labora tory testing. Lab Interpretation Normal (test code = 46960-4) [facility] HealthCoronavirus, CoVID-19, [id number] 01:07:20 Test Item Value Reference Range Interpretation Comments COVID-19 (SARS-COV-2) Not Detected Not Detected INTERP RETATION: No (test code = 29429-4) detect able levels of SARS-CoV-2 Coronavirus (COVID-19) [...] SARS-CoV-2 mole cular diagnostic assa y utilizes Boiler Riveter Mediated Amplification ( TMA) technology to r apidly detect the SARS -CoV-2 (COVID-19) viru s from respiratory adriana ples. In accordance w ith the FDA's kamran nce document "Polic y for Diagnostic Test s for Coronavirus Disease-2019 du [facility] the [facility] Emergency", thi s test was developed, and its performance characteristics were verified by the [facility] molecular diagn ostics laboratory and is authorized for clinical diagno stic use. This labor atory is certified un [place] the Clinical Laboratory Improvement Amendments (CLI A) as qualified to pe rform high complexity clinical labora tory testing. Lab Interpretation Normal (test code = 79796-8) Lynne Surajronavirus, CoVID-19, [id number] 01:07:20 Test Item Value Reference Range Interpretation Comments COVID-19 (SARS-COV-2) Not Detected Not Detected INTERP RETATION: No (test code = 88033-6) detect able levels of SARS-CoV-2 Coronavirus (COVID-19) [...] SARS-CoV-2 mole cular diagnostic assa y utilizes Boiler Riveter Mediated Amplification ( TMA) technology to r apidly detect the SARS -CoV-2 (COVID-19) viru s from respiratory adriana ples. In accordance w ith the FDA's kamran nce document "Polic y for Diagnostic Test s for Coronavirus Disease-2019 du [facility] the [facility] Emergency", thi s test was developed, and its performance characteristics were verified by the [facility] molecular diagn ostics laboratory and is authorized for clinical diagno stic use. This labor atory is certified un [place] the Clinical Laboratory Improvement Amendments (CLI A) as qualified to pe rform high complexity clinical labora tory testing. Lab Interpretation Normal (test code = 08281-6) Lynne Surajronavirus, CoVID-19, [id number] 01:07:20 Test Item Value Reference Range Interpretation Comments COVID-19 (SARS-COV-2) Not Detected Not Detected INTERP RETATION: No (test code = 98060-4) detect able levels of SARS-CoV-2 Coronavirus (COVID-19) [...] SARS-CoV-2 mole cular diagnostic assa y utilizes Boiler Riveter Mediated Amplification ( TMA) technology to r apidly detect the SARS -CoV-2 (COVID-19) viru s from respiratory adriana ples. In accordance w ith the FDA's kamran nce document "Polic y for Diagnostic Test s for Coronavirus Disease-2019 du [facility] the [facility] Emergency", thi s test was developed, and its performance characteristics were verified by the [facility] molecular diagn ostics laboratory and is authorized for clinical diagno stic use. This labor atory is certified un [place] the Clinical Laboratory Improvement Amendments (CLI A) as qualified to pe rform high complexity clinical labora tory testing. Lab Interpretation Normal (test code = 02797-0) [facility] HealthCoronavirus, CoVID-19, [id number] 01:07:20 Test Item Value Reference Range Interpretation Comments COVID-19 (SARS-COV-2) Not Detected Not Detected INTERP RETATION: No (test code = 40181-4) detect able levels of SARS-CoV-2 Coronavirus (COVID-19) [...] SARS-CoV-2 mole cular diagnostic assa y utilizes Boiler Riveter Mediated Amplification ( TMA) technology to r apidly detect the SARS -CoV-2 (COVID-19) viru s from respiratory adriana ples. In accordance w ith the FDA's kamran nce document "Polic y for Diagnostic Test s for Coronavirus Disease-2019 du [place] [facility]", thi s test was developed, and its performance characteristics were verified by the [facility] molecular diagn ostics laboratory and is authorized for clinical diagno stic use. This labor atory is certified [place] the Clinical Laboratory Improvement Amendments (CLI A) as qualified to pe rform high complexity clinical labora tory testing. Lab Interpretation Normal (test code = 18159-5) [facility]OL[facility]Y-8 ORF1ab Resp Ql OLENA+zenwc7579-44-48 01:07:20 Test Item Value Reference Range Interpretation Comments Hospitalized? (test No code = 19600-7) ICU? (test code = No 51631-2) Symptomatic as No defined by CDC? (test code = 42455-3) Employed in No Healthcare? (test code = 57624-5) Resident in a No congregate care setting (including nursing homes, residential care for people with intellectual and developmental disabilities, psychiatric treatment facilities, group homes, board and care homes, homeless group home, foster care or other): (test code = 38948-0) SARS-CoV-2 ORF1ab NOT DETECTED Not Detected INTERPRETA TION: No Resp Ql OLENA+probe detectable levels of (test code = SARS-CoV-2 40745-0) Coronavirus (COVID-19) were present in this patient's [...] (COVID-19).COMM ENT: This Hologic Ap leatha SARS-CoV-2 [facility] diagnostic assa y utilizes Boiler Riveter Mediated Amplification ( TMA) technology to r apidly detect the SARS -CoV-2 (COVID-19) viru s from respiratory adriana ples. In accordance with\\XC2A0\\the FDA's guidance docume nt "Policy for Diagnostic Test s for Coronavirus Disease-2019 du [place] the Public [facility] th Emergency", amalia s test was developed, and its performance characteristics were verified by the [facility] molecular diagn ostics laboratory and is authorized for clinical diagno stic use. \\XC2A0\\Amalia s laboratory is certified under the Clinical Labora tory Improvement Amendments (CLI A) as qualified to pe rform high complexity clinical labora tory testing. [facility] [id number] 08:09:01 Test Item Value Reference Range Interpretation Comments Glucose POC (test code = 20553398) 85 mg/dL 74-106 Lab Interpretation (test code = Normal 67060-3) [facility] [id number] 08:09:01 Test Item Value Reference Range Interpretation Comments Glucose POC (test code = 69229052) 85 mg/dL 74-106 Lab Interpretation (test code = Normal 80068-3) [facility] wgqgsz7792-48-79 08:09:01 Test Item Value Reference Range Interpretation Comments Glucose POC (test code = 80240892) 85 mg/dL 74-106 Lab Interpretation (test code = Normal 07319-7) [facility] ngugjd3672-79-77 08:09:01 Test Item Value Reference Range Interpretation Comments Glucose POC (test code = 07185562) 85 mg/dL 74-106 Lab Interpretation (test code = Normal 21927-9) [facility] mstmii7964-08-12 08:09:01 Test Item Value Reference Range Interpretation Comments Glucose POC (test code = 27020222) 85 mg/dL 74-106 Lab Interpretation (test code = Normal 12504-1) [facility] execfb8722-48-32 08:09:01 Test Item Value Reference Range Interpretation Comments Glucose POC (test code = 16194238) 85 mg/dL 74-106 Lab Interpretation (test code = Normal 59085-4) [facility] teegic3502-13-18 08:09:01 Test Item Value Reference Range Interpretation Comments Glucose POC (test code = 21446693) 85 mg/dL 74-106 Lab Interpretation (test code = Normal 46820-5) [facility] menphp9080-95-67 08:09:01 Test Item Value Reference Range Interpretation Comments Glucose POC (test code = 38983115) 85 mg/dL 74-106 Lab Interpretation (test code = Normal 32078-8) [facility] pspxhj2257-03-22 08:09:01 Test Item Value Reference Range Interpretation Comments Glucose POC (test code = 50282121) 85 mg/dL 74-106 Lab Interpretation (test code = Normal 49313-4) [facility] bbjcml4983-98-31 08:09:01 Test Item Value Reference Range Interpretation Comments Glucose POC (test code = 32208422) 85 mg/dL 74-106 Lab Interpretation (test code = Normal 98605-6) [facility] [id number] 08:09:01 Test Item Value Reference Range Interpretation Comments Glucose POC (test code = 80084934) 85 mg/dL 74-106 Lab Interpretation (test code = Normal 54915-4) [facility] zafpwj4488-82-81 08:09:01 Test Item Value Reference Range Interpretation Comments Glucose POC (test code = 63939040) 85 mg/dL 74-106 Lab Interpretation (test code = Normal 69016-5) [facility] HealthOeucroJMFS-IeM-2 ORF1ab Resp Ql OLENA+wyify1644-33-14 23:25:40 Test Item Value Reference Range Interpretation Comments Hospitalized? (test No code = 89975-9) ICU? (test code = No 22621-2) Symptomatic as No defined by CDC? (test code = 87430-5) Employed in No Healthcare? (test code = 23922-1) Resident in a No congregate care setting (including nursing homes, residential care for people with intellectual and developmental disabilities, psychiatric treatment facilities, group homes, board and care homes, homeless group home, foster care or other): (test code = 47681-6) SARS-CoV-2 ORF1ab NOT DETECTED Not Detected INTERPRETA TION: No Resp Ql OLENA+probe detectable levels of (test code = SARS-CoV-2 82398-3) Coronavirus (COVID-19) were present in this patient's [...] SARS-CoV-2 mole cular diagnostic assa y utilizes Boiler Riveter Mediated Amplification ( TMA) technology to r apidly detect the SARS -CoV-2 (COVID-19) viru s from respiratory adriana ples. In accordance with\\XC2A0\\the FDA's guidance docume nt "Policy for Diagnostic Test s for Coronavirus Disease-2019 du [facility] the [facility] Emergency", amalia s test was developed, and its performance characteristics were verified by the [facility] molecular diagn ostics laboratory and is authorized for clinical diagno stic use. \\XC2A0\\Thi s laboratory is certified under the Clinical Labora tory Improvement Amendments (CLI A) as qualified to pe rform high complexity clinical labora tory testing. [facility]12 Lead [id number] 15:46:1012 LEAD EKG FOR [facility] Test Date: 7469-39-00Xkc Name: DORA JOSEPH Department: 5ECIPatient ID: [id number] Room: Gender: M Financial Institution Manager: [id number]: 1970 Requested By: SUSHIL LOERA Junction Number: [id number] Lawson MD: Rene Patterson MeasurementsIntervals [place] Rate: 61 P: 72PR: 152 QRS: 55QRSD: 106 T: 63QT: 398 QTc: 400 Interpretive StatementsSINUS RHYTHMPOSSIBLE RIGHT VENTRICULAR CONDUCTION DELAY [RSR (QR) IN V1/V2]Electronically Signed On 01-22-2022 8:30:45 CDT by Rene [place]it[place]Kevin [place] [address] Lead [id number] 15:46:1012 LEAD EKG FOR [facility] Test Date: 4884-48-09Huy Name: DORA JOSEPH Department: 5ECIPatient ID: [id number] Room: Gender: M Financial Institution Manager: [id number]: 1970 Requested By: SUSHIL Cho Number: [id number] Reading MD: Rene Patterson MeasurementsIntervals [place] Rate: 61 P: 72PR: 152 QRS: 55QRSD: 106 T: 63QT: 398 QTc: 400 Interpretive StatementsSINUS RHYTHMPOSSIBLE RIGHT VENTRICULAR CONDUCTION DELAY [RSR (QR) IN V1/V2]Electronically Signed On 01-22-2022 8:30:45 CDT by Rene AvitaiNDCompaAllen Ville [address] Lead [id number] 15:46:1012 LEAD EKG FOR [facility] Test Date: 2976-20-02Wmg Name: DORA JOSEPH Department: 5ECIPatient ID: [id number] Room: Gender: M Financial Institution Manager: [id number]: 1970 Requested By: SUSHIL Cho Number: [id number] Reading MD: Rene Patterson MeasurementsIntervals [place] Rate: 61 P: 72PR: 152 QRS: 55QRSD: 106 T: 63QT: 398 QTc: 400 Interpretive StatementsSINUS RHYTHMPOSSIBLE RIGHT VENTRI CULAR CONDUCTION DELAY [RSR (QR) IN V1/V2]Electronically Signed On 01-22-2022 8:30:45 CDT by Rene AvitiaNDCompaAllen [place] [address] Lead [id number] 15:46:1012 LEAD EKG FOR [facility] Test Date: 8709-98-86Gbc Name: DORA JOSEPH Department: 5ECIPatient ID: [id number] Room: Gender: M Financial Institution Manager: [id number]: 1970 Requested By: SUSHIL Cho Number: [id number] Reading MD: Rene Patterson MeasurementsIntervals [place] Rate: 61 P: 72PR: 152 QRS: 55QRSD: 106 T: 63QT: 398 QTc: 400 Interpretive StatementsSINUS RHYTHMPOSSIBLE RIGHT VENTRICULAR CONDUCTION DELAY [RSR (QR) IN V1/V2]Electronically Signed On 01-22-2022 8:30:45 CDT by Rene Herris Fwlnsa99 Lead [id number] 15:46:1012 LEAD EKG FOR [facility] Test Date: 5742-18-24Inq Name: DORA JOSEPH Department: 5ECIPatient ID: [id number] Room: Gender: M Financial Institution Manager: [id number]: 1970 Requested By: SUSHIL Cho Number: [id number] Reading MD: Rene Patterson MeasurementsIntervals [place]ight[place] Rate: 61 P: 72PR : 152 QRS: 55QRSD: 106 T: 63QT: 398 QTc: 400 Interpretive StatementsSINUS RHYTHMPOSSIBLE RIGHT VENTRICULAR CONDUCTION DELAY [RSR (QR) IN V1/V2]Electronically Signed On 01-22-2022 8:30:45 CDT by Rene Valle Moucve68 Lead [id number] 15:46:1012 LEAD EKG FOR [facility] Test Date: 4386-11-20Utw Name: DORA JOSEPH Department: 5ECIPatient ID: [id number] Room: Gender: M Financial Institution Manager: [id number]: 1970 Requested By: SUSHIL Cho Number: [id number] Reading MD: Rene Patterson MeasurementsIntervals [place] Rate: 61 P: 72PR: 152 QRS: 55QRSD: 106 T: 63QT: 398 QTc: 400 Interpretive StatementsSINUS RHYTHMPOSSIBLE RIGHT VENTRICULAR CONDUCTION DELAY [RSR (QR) IN V1/V2]Electronically Signed On 01-22-2022 8:30:45 CDT by Rene SadiNDCompaLegacy Health12 Lead [id number] 15:46:1012 LEAD EKG FOR [facility] Test Date: 9300-50-71Vsw Name: DORA JOSEPH Department: 5ECIPatient ID: [id number] Room: Gender: M Financial Institution Manager: [id number]: 1970 Requested By: SUSHIL Cho Number: [id number] Reading MD: Rene Patterson MeasurementsIntervals [place] Rate: 61 P: 72PR: 152 QRS: 55QRSD: 106 T: 63QT: 398 QTc: 400 Interpretive StatementsSINUS RHYTHMPOSSIBLE RIGHT VENTRI CULAR CONDUCTION DELAY [RSR (QR) IN V1/V2]Electronically Signed On 01-22-2022 8:30:45 CDT by Rene AvitiaInnoCentiveoCmpasanta ana health center Ljdyli97 Lead [id number] 15:46:1012 LEAD EKG FOR [facility] Test Date: 6767-21-56Fqs Name: DORA JOSEPH Department: 5ECIPatient ID: [id number] Room: Gender: M Financial Institution Manager: [id number]: 1970 Requested By: SUSHIL Cho Number: [id number] Reading MD: Rene Patterson MeasurementsIntervals [place] Rate: 61 P: 72PR: 152 QRS: 55QRSD: 106 T: 63QT: 398 QTc: 400 Interpretive StatementsSINUS RHYTHMPOSSIBLE RIGHT VENTRICULAR CONDUCTION DELAY [RSR (QR) IN V1/V2]Electronically Signed On 01-22-2022 8:30:45 CDT by Rene VerisimSpinlight StudioCompa7 [employer]12 Lead [id number] 15:46:1012 LEAD EKG FOR [facility] Test Date: 6643-53-02Dli Name: DORA JOSEPH Department: 5ECIPatient ID: [id number] Room: Gender: M Financial Institution Manager: [id number]: 1970 Requested By: SUSHIL Cho Number: [id number] Reading MD: Rene Patterson MeasurementsIntervals [place] Rate: 61 P: 72PR: 152 QRS: 55QRSD: 106 T: 63QT: 398 QTc: 400 Interpretive StatementsSINUS RHYTHMPOSSIBLE RIGHT VENTRICULAR CONDUCTION DELAY [RSR (QR) IN V1/V2]Electronically Signed On 01-22-2022 8:30:45 CDT by [facility] Health ServicesForeSee12 Lead [id number] 15:46:1012 LEAD EKG FOR [facility] Test Date: 4133-20-54Jwx Name: DORA JOSEPH Department: 5ECIPatient ID: [id number] Room: Gender: M Financial Institution Manager: [id number]: 1970 Requested By: SUSHIL Cho Number: [id number] Reading MD: Rene Patterson MeasurementsIntervals [place] Rate: 61 P: 72PR: 152 QRS: 55QRSD: 106 T: 63QT: 398 QTc: 400 Interpretive StatementsSINUS RHYTHMPOSSIBLE RIGHT VENTRICULAR CONDUCTION DELAY [RSR (QR) IN V1/V2]Electronically Signed On 01-22-2022 8:30:45 CDT by Universal Health ServicesSpinlight StudioCarroll Regional Medical CenterChannelMeter Njdafu16 Lead [id number] 15:46:1012 LEAD EKG FOR [facility] Test Date: 7163-73-49Akp Name: DORA JOSEPH Department: 5ECIPatient ID: [id number] Room: Gender: M Financial Institution Manager: [id number]: 1970 Requested By: SUHSIL Cho Number: [id number] Reading MD: Rene Patterson MeasurementsIntervals [place] Rate: 61 P: 72PR: 152 QRS: 55QRSD: 106 T: 63QT: 398 QTc: 400 Interpretive StatementsSINUS RHYTHMPOSSIBLE RIGHT VENT RICULAR CONDUCTION DELAY [RSR (QR) IN V1/V2]Electronically Signed On 01-22-2022 8:30:45 CDT by Rene [facility] Medical CenterDebbyNDCompasanta ana health center Sqmaig35 Lead [id number] 15:46:1012 LEAD EKG FOR [facility] Test Date: 2004-18-32Bxv Name: DORA JOSEPH Department: 5ECIPatient ID: [id number] Room: Gender: M Financial Institution Manager: [id number]: 1970 Requested By: SUSHIL Cho Number: [id number] Reading MD: Rene Patterson MeasurementsIntervals [place] Rate: 61 P: 72PR: 152 QRS: 55QRSD: 106 T: 63QT: 398 QTc: 400 Interpretive StatementsSINUS RHYTHMPOSSIBLE RIGHT VENTRICULAR CONDUCTION DELAY [RSR (QR) IN V1/V2]Electronically Signed On 01-22-2022 8:30:45 CDT by [facility] Health ServicesDebbyCommunity Memorial HospitalV 1+2 Ab+HIV1 p24 Ag SerPl Ql [id number] 07:02:58 Test Item Value Reference Range Interpretation Comments HIV 1+2 Ab+HIV1 p24 Ag SerPl Ql IA NEGATIVE Negative (test code = 45123-2) [id number] 21:23:2512 LEAD EKG FOR [facility] Test Date: 3805-85-21Dra Name: DORA PAEZRY Department: 5520Patient ID: [id number] Room: 7J29Taevsy: 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1970 Requested By: KARIN BASSETT AOrder Number: [id number] Reading MD: Chiara Calles MeasurementsIntervals Leighton Rate: 72 P: 90PR:157 QRS: 87QRSD: 105 T: 90QT: 360 QTc: 384 Interpretive StatementsSINUS RHYTHMPOSSIBLE RIGHT VENTRICULAR CONDUCTION DELAY [RSR (QR) IN V1/V2]EARLY REPOLARIZATION [ST ELEVATION WITH NORMALLY INFLECTED T- WAVE]Electronically Signed On 01-17-2022 13:02:30 CDT by Microbial SolutionsCarroll Regional Medical CenterChannelMeter [id number] 21:23:2512 LEAD EKG FOR [facility] Test Date: 9756-01-47Gqr Name: DORA PAEZRY Department: 5520Patient ID: [id number] Room: 2I42Avhriz: 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1970 Requested By: JESSICA AOrder Number: [id number] Reading MD: Chiara Calles MeasurementsIntervals [place] Rate: 72 P: 90PR:157 QRS: 87QRSD: 105 T: 90QT: 360 QTc: 384 Interpretive StatementsSINUS RHYTHMPOSSIBLE RIGHT VENTRICULAR CONDUCTION DELAY [RSR (QR) IN V1/V2]EARLY REPOLARIZATION [ST ELEVATION WITH NORMALLY INFLECTED T- WAVE]Electronically Signed On 01-17-2022 13:02:30 CDT by Radar NetworksEKG2022-05-26 21:23:2512 LEAD EKG FOR [facility] Test Date: 5140-89-50Jqf Name: DORA PAEZRY Department: 5520Patient ID: [id number] Room: 4Z33Nkwrli: 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1970 Requested By: KARIN BASESTT AOrder Number: [id number] Reading MD: Chiara Calles MeasurementsIntervals [place] Rate: 72 P: 90PR: 157 QRS: 87QRSD: 105 T: 90QT: 360 QTc: 384 Interpretive StatementsSINUS RHYTHMPOSSIBLE RIGHT VENTRICULAR CONDUCTION DELAY [RSR (QR) IN V1/V2]EARLY REPOLARIZATION [ST ELEVATION WITH NORMALLY INFLECTED T- WAVE]Electronically Signed On 01-17-2022 13:02:30 CDT by [facility] Datasnap.ioShawn [place] [address]VxfvyzAXJ0685-60-36 21:23:2512 LEAD EKG FOR [facility] Test Date: 5665-04-81Kks Name: DORA JOSEPH Department: 5520Patient ID: [id number] Room: 8O55Wfxfqo: 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1970 Requested By: KARIN BASSETT AOrder Number: [id number] Reading MD: Chiara Calles MeasurementsIntervals [place] Rate: 72 P: 90PR: 157 QRS: 87QRSD: 105 T: 90QT: 360 QTc: 384 Interpretive StatementsSINUS RHYTHMPOSSIBLE RIGHT VENTRICULAR CONDUCTION DELAY [RSR (QR) IN V1/V2]EARLY REPOLARIZATION [ST ELEVATION WITH NORMALLY INFLECTED T- WAVE]Electronically Signed On 01-17-2022 13:02:30 CDT by Microbial SolutionsShawn [place] [address]OaglzkWRM0219-47-08 21:23:2512 LEAD EKG FOR [facility] Test Date: 6132-05-78Jxp Name: DORA PAEZRY Department: 5520Patient ID: [id number] Room: 6O89Ppoule: 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1970 Requested By: JESSICA AOrder Number: [id number] Reading MD: Chiara Calles MeasurementsIntervals [place] Rate: 72 P: 90PR: 157 QRS: 87QRSD: 105 T: 90QT: 360 QTc: 384 Interpretive StatementsSINUS RHYTHMPOSSIBLE RIGHT VENTRICULAR CONDUCTION DELAY [RSR (QR) IN V1/V2]EARLY REPOLARIZATION [ST ELEVATION WITH NORMALLY INFLECTED T- WAVE]Electronically Signed On 01-17-2022 13:02:30 CDT by Microbial SolutionsEastern State HospitalQygjsyHDN0289-13-79 21:23:2512 LEAD EKG FOR [facility] Test Date: 9395-80-32Xek Name: DORA JOSEPH Department: 5520Patient ID: [id number] Room: 7C59Hflfbl: 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1970 Requested By: KARIN BASSETT AOrder Number: [id number] Reading MD: Chiara Calles MeasurementsIntervals [place] Rate: 72 P: 90PR:157 QRS: 87QRSD: 105 T: 90QT: 360 QTc: 384 Interpretive StatementsSINUS RHYTHMPOSSIBLE RIGHT VENTRICULAR CONDUCTION DELAY [RSR (QR) IN V1/V2]EARLY REPOLARIZATION [ST ELEVATION WITH NORMALLY INFLECTED T- WAVE]Electronically Signed On 01-17-2022 13:02:30 CDT by [facility] Datasnap.ioEastern State HospitalKsvcvcVSZ1798-93-83 21:23:2512 LEAD EKG FOR [facility] Test Date: 8999-29-45Ewc Name: DORA JOSEPH Department: 5520Patient ID: [id number] Room: 4F40Gkqcyh: 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1970 Requested By: KARIN BASSETT AOrder Number: [id number] Reading MD: Chiara Calles MeasurementsIntervals [place] Rate: 72 P: 90PR: 157 QRS: 87QRSD: 105 T: 90QT: 360 QTc: 384 Interpretive StatementsSINUS RHYTHMPOSSIBLE RIGHT VENTRICULAR CONDUCTION DELAY [RSR (QR) IN V1/V2]EARLY REPOLARIZATION [ST ELEVATION WITH NORMALLY INFLECTED T- WAVE]Electronically Signed On 01-17-2022 13:02:30 CDT by [facility] HospitalDimeShawn Ville [address]MyhicxAJF3612-59-84 21:23:2512 LEAD EKG FOR [facility] Test Date: 2298-58-21Wng Name: DORA JOSEPH Department: 5520Patient ID: [id number] Room: 5S87Vdckpa: 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1970 Requested By: JESSICA AOrder Number: [id number] Reading MD: Chiara Calles MeasurementsIntervals [place] Rate: 72 P: 90PR: 157 QRS: 87QRSD: 105 T: 90QT: 360 QTc: 384 Interpretive StatementsSINUS RHYTHMPOSSIBLE RIGHT VENTRICULAR CONDUCTION DELAY [RSR (QR) IN V1/V2]EARLY REPOLARIZATION [ST ELEVATION WITH NORMALLY INFLECTEDT- WAVE]Electronically Signed On 01-17-2022 13:02:30 CDT by [facility] Datasnap.ioE[facility] HospitalSfacnaDUY4570-08-95 21:23:2512 LEAD EKG FOR [facility] Test Date: 1733-14-56Pze Name: DORA PAEZRY Department: 5520Patient ID: [id number] Room: 2H57Ymadhz: 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1970 Requested By: KARIN BASSETT AOrder Number: [id number] Reading MD: Chiara Calles MeasurementsIntervals [place] Rate: 72 P: 90PR:157 QRS: 87QRSD: 105 T: 90QT: 360 QTc: 384 Interpretive StatementsSINUS RHYTHMPOSSIBLE RIGHT VENTRICULAR CONDUCTION DELAY [RSR (QR) IN V1/V2]EARLY REPOLARIZATION [ST ELEVATION WITH NORMALLY INFLECTED T- WAVE]Electronically Signed On 01-17-2022 13:02:30 CDT by [facility] Datasnap.ioE[facility] HospitalQhnwniLFG9329-48-73 21:23:2512 LEAD EKG FOR [facility] Test Date: 9011-67-54Vsy Name: DORA PAEZRY Department: 5520Patient ID: [id number] Room: 4A05Hhgper: 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1970 Requested By: KARIN BASSETT AOrder Number: [id number] Reading MD: Chiara Calles MeasurementsIntervals [place] Rate: 72 P: 90PR:157 QRS: 87QRSD: 105 T: 90QT: 360 QTc: 384 Interpretive StatementsSINUS RHYTHMPOSSIBLE RIGHT VENTRICULAR CONDUCTION DELAY [RSR (QR) IN V1/V2]EARLY REPOLARIZATION [ST ELEVATION WITH NORMALLY INFLECTED T- WAVE]Electronically Signed On 01-17-2022 13:02:30 CDT by [facility] Datasnap.ioE[facility] HospitalEdgyzvBQG2066-92-81 21:23:2512 LEAD EKG FOR [facility] Test Date: 9812-22-37Raw Name: DORA JOSEPH Department: 5520Patient ID: [id number] Room: 2D08Lziyja: 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1970 Requested By: KARIN BASSETT AOrder Number: [id number] Reading MD: Chiara Calles MeasurementsIntervals [place] Rate: 72 P: 90PR: 157 QRS: 87QRSD: 105 T: 90QT: 360 QTc: 384 Interpretive StatementsSINUS RHYTHMPOSSIBLE RIGHT VENTRICULAR CONDUCTION DELAY [RSR (QR) IN V1/V2]EARLY REPOLARIZATION [ST ELEVATION WITH NORMALLY INFLECTED T- WAVE]Electronically Signed On 01-17-2022 13:02:30 CDT by Radar NetworksEKG2022-05-26 21:23:2512 LEAD EKG FOR [facility] Test Date: 1290-76-58Exg Name: DORA JOSEPH Department: 5520Patient ID: [id number] Room: 5I56Dhkoht: 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 (test No code = 99404-8) ICU? (test code = No 94780-9) Symptomatic as No defined by CDC? (test code = 90308-1) Employed in No Healthcare? (test code = 51067-0) Resident in a No congregate care setting (including nursing homes, residential care for people with intellectual and developmental disabilities, psychiatric treatment facilities, group homes, board and care homes, homeless group home, foster care or other): (test code = 67296-1) SARS-CoV-2 ORF1ab NOT DETECTED Not Detected INTERPRETA TION: No Resp Ql OLENA+probe detectable levels of (test code = SARS-CoV-2 71983-2) Coronavirus (COVID-19) were present in this patient's [...] SARS-CoV-2 mole cular diagnostic assa y utilizes Boiler Riveter Mediated Amplification ( TMA) technology to r apidly detect the SARS -CoV-2 (COVID-19) viru s from respiratory adriana ples. In accordance with\\XC2A0\\the FDA's guidance docume nt "Policy for Diagnostic Test s for Coronavirus Disease-2019 du [facility] the [facility] Emergency", amalia s test was developed, and its performance characteristics were verified by the [facility] molecular diagn ostics laboratory and is authorized for clinical diagno stic use. \\XC2A0\\Thi s laboratory is certified under the Clinical Labora tory Improvement Amendments (CLI A) as qualified to pe rform high complexity clinical labora tory testing. [facility] CREATININE POC docked [id number] 13:57:55 Test Item Value Reference Range Interpretation Comments Creatinine POC (test 2.4 mg/dL 0.6-1.3 H Physici an Notified code = 70345856) eGFR If non- Am 30 See_Comment L [Aut omated message] (test code = 06099510) The s ystem which generated this result transmit dain reference range : >=90 mL/min/1.7 3 m2. The reference r meredith was not used to interpret this result as normal/abnormal . eGFR If Am (test 35 See_Comment L [A utomated message] code = 74675588) The system which generated this result transmit dain reference range : >=90 mL/min/1.7 3 m2. The reference r meredith was not used to interpret this result as normal/abnormal . Lab Interpretation (test Abnormal code = 14397-9) [facility] CREATININE POC docked rqjhoc5975-14-03 13:57:55 Test Item Value Reference Range Interpretation Comments Creatinine POC (test 2.4 mg/dL 0.6-1.3 H Physici an Notified code = 27720978) eGFR If non- Am 30 See_Comment L [Aut omated message] (test code = 32069344) The s ystem which generated this result transmit dain reference range : >=90 mL/min/1.7 3 m2. The reference r meredith was not used to interpret this result as normal/abnormal . eGFR If Am (test 35 See_Comment L [A utomated message] code = 06984891) The system which generated this result transmit dain reference range : >=90 mL/min/1.7 3 m2. The reference r meredith was not used to interpret this result as normal/abnormal . Lab Interpretation (test Abnormal code = 48402-1) [facility] CREATININE POC docked fgjgpb4755-48-91 13:57:55 Test Item Value Reference Range Interpretation Comments Creatinine POC (test 2.4 mg/dL 0.6-1.3 H Physici an Notified code = 78466852) eGFR If non- Am 30 See_Comment L [Aut omated message] (test code = 57404591) The s ystem which generated this result transmit dain reference range : >=90 mL/min/1.7 3 m2. The reference r meredith was not used to interpret this result as normal/abnormal . eGFR If Am (test 35 See_Comment L [A utomated message] code = 33750933) The system which generated this result transmit dain reference range : >=90 mL/min/1.7 3 m2. The reference r meredith was not used to interpret this result as normal/abnormal . Lab Interpretation (test Abnormal code = 84534-8) [facility] CREATININE POC docked gyikjq1416-65-90 13:57:55 Test Item Value Reference Range Interpretation Comments Creatinine POC (test 2.4 mg/dL 0.6-1.3 H Physici an Notified code = 23575573) eGFR If non- Am 30 See_Comment L [Aut omated message] (test code = 06649331) The s ystem which generated this result transmit dain reference range : >=90 mL/min/1.7 3 m2. The reference r meredith was not used to interpret this result as normal/abnormal . eGFR If Am (test 35 See_Comment L [A utomated message] code = 47964841) The system which generated this result transmit dain reference range : >=90 mL/min/1.7 3 m2. The reference r meredith was not used to interpret this result as normal/abnormal . Lab Interpretation (test Abnormal code = 12650-5) [facility] CREATININE POC docked [id number] 13:57:55 Test Item Value Reference Range Interpretation Comments Creatinine POC (test 2.4 mg/dL 0.6-1.3 H Physici an Notified code = 00438807) eGFR If non- Am 30 See_Comment L [Aut omated message] (test code = 31038550) The s ystem which generated this result transmit dain reference range : >=90 mL/min/1.7 3 m2. The reference r meredith was not used to interpret this result as normal/abnormal . eGFR If Am (test 35 See_Comment L [A utomated message] code = 22345300) The system which generated this result transmit dain reference range : >=90 mL/min/1.7 3 m2. The reference r meredith was not used to interpret this result as normal/abnormal . Lab Interpretation (test Abnormal code = 87243-9) [facility] CREATININE POC docked wbfjvo2689-45-42 13:57:55 Test Item Value Reference Range Interpretation Comments Creatinine POC (test 2.4 mg/dL 0.6-1.3 H Physici an Notified code = 62317986) eGFR If non- Am 30 See_Comment L [Aut omated message] (test code = 87631462) The s ystem which generated this result transmit dain reference range : >=90 mL/min/1.7 3 m2. The reference r meredith was not used to interpret this result as normal/abnormal . eGFR If Am (test 35 See_Comment L [A utomated message] code = 78667491) The system which generated this result transmit dain reference range : >=90 mL/min/1.7 3 m2. The reference r meredith was not used to interpret this result as normal/abnormal . Lab Interpretation (test Abnormal code = 72608-3) [facility] [id number] 13:57:55 Test Item Value Reference Range Interpretation Comments Creatinine POC (test 2.4 mg/dL 0.6-1.3 H Physici an Notified code = 94641465) eGFR If non- Am 30 See_Comment L [Aut omated message] (test code = 49270292) The s ystem which generated this result transmit dain reference range : >=90 mL/min/1.7 3 m2. The reference r meredith was not used to interpret this result as normal/abnormal . eGFR If Am (test 35 See_Comment L [A utomated message] code = 11052162) The system which generated this result transmit dain reference range : >=90 mL/min/1.7 3 m2. The reference r meredith was not used to interpret this result as normal/abnormal . Lab Interpretation (test Abnormal code = 02906-7) [facility] CREATININE POC docked [id number] 13:57:55 Test Item Value Reference Range Interpretation Comments Creatinine POC (test 2.4 mg/dL 0.6-1.3 H Physici an Notified code = 61225418) eGFR If non- Am 30 See_Comment L [Aut omated message] (test code = 24438476) The s ystem which generated this result transmit dain reference range : >=90 mL/min/1.7 3 m2. The reference r meredith was not used to interpret this result as normal/abnormal . eGFR If Am (test 35 See_Comment L [A utomated message] code = 63521485) The system which generated this result transmit dain reference range : >=90 mL/min/1.7 3 m2. The reference r meredith was not used to interpret this result as normal/abnormal . Lab Interpretation (test Abnormal code = 18007-3) [facility] [id number] 13:57:55 Test Item Value Reference Range Interpretation Comments Creatinine POC (test 2.4 mg/dL 0.6-1.3 H Physici an Notified code = 64539310) eGFR If non- Am 30 See_Comment L [Aut omated message] (test code = 56815931) The s ystem which generated this result transmit dain reference range : >=90 mL/min/1.7 3 m2. The reference r meredith was not used to interpret this result as normal/abnormal . eGFR If Am (test 35 See_Comment L [A utomated message] code = 99576134) The system which generated this result transmit dain reference range : >=90 mL/min/1.7 3 m2. The reference r meredith was not used to interpret this result as normal/abnormal . Lab Interpretation (test Abnormal code = 05539-2) [facility] CREATININE POC docked [id number] 13:57:55 Test Item Value Reference Range Interpretation Comments Creatinine POC (test 2.4 mg/dL 0.6-1.3 H Physici an Notified code = 41764874) eGFR If non- Am 30 See_Comment L [Aut omated message] (test code = 56567724) The s ystem which generated this result transmit dain reference range : >=90 mL/min/1.7 3 m2. The reference r meredith was not used to interpret this result as normal/abnormal . eGFR If Am (test 35 See_Comment L [A utomated message] code = 87705296) The system which generated this result transmit dain reference range : >=90 mL/min/1.7 3 m2. The reference r meredith was not used to interpret this result as normal/abnormal . Lab Interpretation (test Abnormal code = 61405-3) [facility] CREATININE POC docked [id number] 13:57:55 Test Item Value Reference Range Interpretation Comments Creatinine POC (test 2.4 mg/dL 0.6-1.3 H Physici an Notified code = 14318317) eGFR If non- Am 30 See_Comment L [Aut omated message] (test code = 14852323) The s ystem which generated this result transmit dain reference range : >=90 mL/min/1.7 3 m2. The reference r meredith was not used to interpret this result as normal/abnormal . eGFR If Am (test 35 See_Comment L [A utomated message] code = 89847775) The system which generated this result transmit dain reference range : >=90 mL/min/1.7 3 m2. The reference r meredith was not used to interpret this result as normal/abnormal . Lab Interpretation (test Abnormal code = 58780-1) [facility] CREATININE POC docked [id number] 13:57:55 Test Item Value Reference Range Interpretation Comments Creatinine POC (test 2.4 mg/dL 0.6-1.3 H Physici an Notified code = 87653455) eGFR If non- Am 30 See_Comment L [Aut omated message] (test code = 33573786) The s ystem which generated this result transmit dain reference range : >=90 mL/min/1.7 3 m2. The reference r meredith was not used to interpret this result as normal/abnormal . eGFR If Am (test 35 See_Comment L [A utomated message] code = 01995422) The system which generated this result transmit dain reference range : >=90 mL/min/1.7 3 m2. The reference r meredith was not used to interpret this result as normal/abnormal . Lab Interpretation (test Abnormal code = 68577-9) [facility] BMP POC docked yxwlvz0596-09-51 13:48:46 Test Item Value Reference Range Interpretation Comments Sodium POC (test code = 126 mmol/L 136-145 L 47397942) Potassium POC (test code 4.4 mmol/L 3.5-5.1 = 64417986) Chloride POC (test code 100 mmol/L 98-107 = 05023752) TCO2 POC (test code = 17 mmol/L 21-32 L Physic rachel Notified 36714530) Urea Nitrogen POC (test 36 mg/dL 7-18 H code = 59911480) Glucose POC (test code = 114 mg/dL 74-106 H 96768889) Hemoglobin POC (test 11.9 g/dL 12-16 L code = 07414858) Hematocrit POC (test 35.0 % 37.0-47.0 L code = 97881722) Lab Interpretation (test Abnormal code = 02937-3) [facility] BMP POC docked [id number] 13:48:46 Test Item Value Reference Range Interpretation Comments Sodium POC (test code = 126 mmol/L 136-145 L 13468580) Potassium POC (test code 4.4 mmol/L 3.5-5.1 = 96687127) Chloride POC (test code 100 mmol/L 98-107 = 68424443) TCO2 POC (test code = 17 mmol/L 21-32 L Physic rachel Notified 21380591) Urea Nitrogen POC (test 36 mg/dL 7-18 H code = 18320182) Glucose POC (test code = 114 mg/dL 74-106 H 64643735) Hemoglobin POC (test 11.9 g/dL 12-16 L code = 99851319) Hematocrit POC (test 35.0 % 37.0-47.0 L code = 07922583) Lab Interpretation (test Abnormal code = 04217-6) [facility] POC docked [id number] 13:48:46 Test Item Value Reference Range Interpretation Comments Sodium POC (test code = 126 mmol/L 136-145 L 33717312) Potassium POC (test code 4.4 mmol/L 3.5-5.1 = 56782388) Chloride POC (test code 100 mmol/L 98-107 = 64017901) TCO2 POC (test code = 17 mmol/L 21-32 L Physic rachel Notified 70883702) Urea Nitrogen POC (test 36 mg/dL 7-18 H code = 77843380) Glucose POC (test code = 114 mg/dL 74-106 H 31539555) Hemoglobin POC (test 11.9 g/dL 12-16 L code = 24808786) Hematocrit POC (test 35.0 % 37.0-47.0 L code = 11310671) Lab Interpretation (test Abnormal code = 16852-5) [facility] POC docked [id number] 13:48:46 Test Item Value Reference Range Interpretation Comments Sodium POC (test code = 126 mmol/L 136-145 L 22562598) Potassium POC (test code 4.4 mmol/L 3.5-5.1 = 45129166) Chloride POC (test code 100 mmol/L 98-107 = 97281091) TCO2 POC (test code = 17 mmol/L 21-32 L Physic rachel Notified 72108474) Urea Nitrogen POC (test 36 mg/dL 7-18 H code = 39945168) Glucose POC (test code = 114 mg/dL 74-106 H 63543780) Hemoglobin POC (test 11.9 g/dL 12-16 L code = 10441175) Hematocrit POC (test 35.0 % 37.0-47.0 L code = 39270240) Lab Interpretation (test Abnormal code = 13830-6) [facility] POC docked [id number] 13:48:46 Test Item Value Reference Range Interpretation Comments Sodium POC (test code = 126 mmol/L 136-145 L 46329449) Potassium POC (test code 4.4 mmol/L 3.5-5.1 = 84626833) Chloride POC (test code 100 mmol/L 98-107 = 55732947) TCO2 POC (test code = 17 mmol/L 21-32 L Physic rachel Notified 35481767) Urea Nitrogen POC (test 36 mg/dL 7-18 H code = 79465557) Glucose POC (test code = 114 mg/dL 74-106 H 55430428) Hemoglobin POC (test 11.9 g/dL 12-16 L code = 74524680) Hematocrit POC (test 35.0 % 37.0-47.0 L code = 79537962) Lab Interpretation (test Abnormal code = 02580-4) [facility] POC docked [id number] 13:48:46 Test Item Value Reference Range Interpretation Comments Sodium POC (test code = 126 mmol/L 136-145 L 72026609) Potassium POC (test code 4.4 mmol/L 3.5-5.1 = 07175771) Chloride POC (test code 100 mmol/L 98-107 = 79219644) TCO2 POC (test code = 17 mmol/L 21-32 L Physic rachel Notified 40044580) Urea Nitrogen POC (test 36 mg/dL 7-18 H code = 90665457) Glucose POC (test code = 114 mg/dL 74-106 H 47291276) Hemoglobin POC (test 11.9 g/dL 12-16 L code = 66556001) Hematocrit POC (test 35.0 % 37.0-47.0 L code = 85044063) Lab Interpretation (test Abnormal code = 46259-5) [facility] POC docked [id number] 13:48:46 Test Item Value Reference Range Interpretation Comments Sodium POC (test code = 126 mmol/L 136-145 L 96094554) Potassium POC (test code 4.4 mmol/L 3.5-5.1 = 69093223) Chloride POC (test code 100 mmol/L 98-107 = 56302381) TCO2 POC (test code = 17 mmol/L 21-32 L Physic rachel Notified 47746264) Urea Nitrogen POC (test 36 mg/dL 7-18 H code = 05897228) Glucose POC (test code = 114 mg/dL 74-106 H 03550878) Hemoglobin POC (test 11.9 g/dL 12-16 L code = 75774466) Hematocrit POC (test 35.0 % 37.0-47.0 L code = 79741237) Lab Interpretation (test Abnormal code = 30616-3) [facility] POC docked [id number] 13:48:46 Test Item Value Reference Range Interpretation Comments Sodium POC (test code = 126 mmol/L 136-145 L 17509100) Potassium POC (test code 4.4 mmol/L 3.5-5.1 = 74938783) Chloride POC (test code 100 mmol/L 98-107 = 93379411) TCO2 POC (test code = 17 mmol/L 21-32 L Physic rachel Notified 19484612) Urea Nitrogen POC (test 36 mg/dL 7-18 H code = 26873466) Glucose POC (test code = 114 mg/dL 74-106 H 93154885) Hemoglobin POC (test 11.9 g/dL 12-16 L code = 47517239) Hematocrit POC (test 35.0 % 37.0-47.0 L code = 77920098) Lab Interpretation (test Abnormal code = 21998-1) [facility] POC docked [id number] 13:48:46 Test Item Value Reference Range Interpretation Comments Sodium POC (test code = 126 mmol/L 136-145 L 99407215) Potassium POC (test code 4.4 mmol/L 3.5-5.1 = 48528858) Chloride POC (test code 100 mmol/L 98-107 = 80521369) TCO2 POC (test code = 17 mmol/L 21-32 L Physic rachel Notified 68812461) Urea Nitrogen POC (test 36 mg/dL 7-18 H code = 51260008) Glucose POC (test code = 114 mg/dL 74-106 H 50906522) Hemoglobin POC (test 11.9 g/dL 12-16 L code = 89005411) Hematocrit POC (test 35.0 % 37.0-47.0 L code = 17432349) Lab Interpretation (test Abnormal code = 38102-9) [facility] POC docked [id number] 13:48:46 Test Item Value Reference Range Interpretation Comments Sodium POC (test code = 126 mmol/L 136-145 L 13771817) Potassium POC (test code 4.4 mmol/L 3.5-5.1 = 31818758) Chloride POC (test code 100 mmol/L 98-107 = 62966116) TCO2 POC (test code = 17 mmol/L 21-32 L Physic rachel Notified 92698388) Urea Nitrogen POC (test 36 mg/dL 7-18 H code = 94993106) Glucose POC (test code = 114 mg/dL 74-106 H 93984017) Hemoglobin POC (test 11.9 g/dL 12-16 L code = 66580377) Hematocrit POC (test 35.0 % 37.0-47.0 L code = 19158793) Lab Interpretation (test Abnormal code = 65419-6) [facility] POC docked [id number] 13:48:46 Test Item Value Reference Range Interpretation Comments Sodium POC (test code = 126 mmol/L 136-145 L 86946493) Potassium POC (test code 4.4 mmol/L 3.5-5.1 = 78550611) Chloride POC (test code 100 mmol/L 98-107 = 96552604) TCO2 POC (test code = 17 mmol/L 21-32 L Physic rachel Notified 71671367) Urea Nitrogen POC (test 36 mg/dL 7-18 H code = 82529576) Glucose POC (test code = 114 mg/dL 74-106 H 83982270) Hemoglobin POC (test 11.9 g/dL 12-16 L code = 33861784) Hematocrit POC (test 35.0 % 37.0-47.0 L code = 84505586) Lab Interpretation (test Abnormal code = 04059-7) [facility] BMP POC docked [id number] 13:48:46 Test Item Value Reference Range Interpretation Comments Sodium POC (test code = 126 mmol/L 136-145 L 60740851) Potassium POC (test code 4.4 mmol/L 3.5-5.1 = 21578045) Chloride POC (test code 100 mmol/L 98-107 = 26916359) TCO2 POC (test code = 17 mmol/L 21-32 L Physic rachel Notified 30866913) Urea Nitrogen POC (test 36 mg/dL 7-18 H code = 04675353) Glucose POC (test code = 114 mg/dL 74-106 H 43152562) Hemoglobin POC (test 11.9 g/dL 12-16 L code = 15184036) Hematocrit POC (test 35.0 % 37.0-47.0 L code = 75282340) Lab Interpretation (test Abnormal code = 45534-1) [facility] Resp Ql OLENA+yafbx7619-47-58 20:25:16 Test Item Value Reference Range Interpretation Comments Hospitalized? (test No code = 36483-5) ICU? (test code = No 59814-2) Symptomatic as No defined by CDC? (test code = 00511-5) Employed in No Healthcare? (test code = 21642-8) Resident in a No congregate care setting (including nursing homes, residential care for people with intellectual and developmental disabilities, psychiatric treatment facilities, group homes, board and care homes, homeless group home, foster care or other): (test code = 08271-2) SARS-CoV-2 ORF1ab NOT DETECTED Not Detected INTERPRETA TION: No Resp Ql OLENA+probe detectable levels of (test code = SARS-CoV-2 69129-2) Coronavirus (COVID-19) were present in this patient's [...] SARS-CoV-2 mole cular diagnostic assa y utilizes Boiler Riveter Mediated Amplification ( TMA) technology to r apidly detect the SARS -CoV-2 (COVID-19) viru s from respiratory adriana ples. In accordance with\\XC2A0\\the FDA's guidance docume nt "Policy for Diagnostic Test s for Coronavirus Disease-2019 du [facility] the [facility]", amalia s test was developed, and its performance characteristics were verified by the [facility] molecular diagn ostics laboratory and is authorized for clinical diagno stic use. \\XC2A0\\Amalia s laboratory is certified under the Clinical Labora tory Improvement Amendments (CLI A) as qualified to pe rform high complexity clinical labora tory testing. [facility] POC docked [id number] 11:16:15 Test Item Value Reference Range Interpretation Comments pH, Pankaj POC (test code 7.32 7.33-7.43 L = 70941183) pCO2,Pankaj POC (test code 31.0 See_Comment L [Au tomated = 88369459) message] The sy stem which generated this result transmitted reference range : 38 - 50 mmHg. The reference range was not used to interpret this result as normal/abnormal . PO2, Venous POC (BKR) 44 See_Comment L [Auto mated (test code = 33746043) messa ge] The system which generated this result transmitted reference range : 50 - 75 mm Hg. The reference range was not used to interpret this result as normal/abnormal . Ionized Calcium POC 1.24 mmol/L 1.15-1.29 (test code = 11745483) HCO3, Pankaj POC (test 16 mmol/L 22-26 L code = 80879014) TCO2 POC (test code = 17 mmol/L 21-32 L 52319354) Base Deficit, Pankaj POC -9 (test code = 01087740) Sample Type (test code IVEN Physi erik Notified = 02099144) % Sat, Pankaj POC (test 77 % code = 51470922) Lab Interpretation Abnormal (test code = 98786-5) [facility] VBG POC docked [id number] 11:16:15 Test Item Value Reference Range Interpretation Comments pH, Pankaj POC (test code 7.32 7.33-7.43 L = 40672892) pCO2,Pankaj POC (test code 31.0 See_Comment L [Au tomated = 57451526) message] The sy stem which generated this result transmitted reference range : 38 - 50 mmHg. The reference range was not used to interpret this result as normal/abnormal . PO2, Venous POC (BKR) 44 See_Comment L [Auto mated (test code = 54592140) messa ge] The system which generated this result transmitted reference range : 50 - 75 mm Hg. The reference range was not used to interpret this result as normal/abnormal . Ionized Calcium POC 1.24 mmol/L 1.15-1.29 (test code = 26803172) HCO3, Pankaj POC (test 16 mmol/L 22-26 L code = 70269029) TCO2 POC (test code = 17 mmol/L 21-32 L 65870088) Base Deficit, Pankaj POC -9 (test code = 27106661) Sample Type (test code STEPAN valencia Notified = 31073894) % Sat, Pankaj POC (test 77 % code = 61358583) Lab Interpretation Abnormal (test code = 91897-8) [facility] VB POC docked [id number] 11:16:15 Test Item Value Reference Range Interpretation Comments pH, Pankaj POC (test code 7.32 7.33-7.43 L = 11545473) pCO2,Pankaj POC (test code 31.0 See_Comment L [Au tomated = 44027579) message] The sy stem which generated this result transmitted reference range : 38 - 50 mmHg. The reference range was not used to interpret this result as normal/abnormal . PO2, Venous POC (BKR) 44 See_Comment L [Auto mated (test code = 65568869) messa ge] The system which generated this result transmitted reference range : 50 - 75 mm Hg. The reference range was not used to interpret this result as normal/abnormal . Ionized Calcium POC 1.24 mmol/L 1.15-1.29 (test code = 80238582) HCO3, Pankaj POC (test 16 mmol/L 22-26 L code = 80011272) TCO2 POC (test code = 17 mmol/L 21-32 L 00583798) Base Deficit, Pankaj POC -9 (test code = 29932907) Sample Type (test code STEPAN valencia Notified = 61905678) % Sat, Pankaj POC (test 77 % code = 61115713) Lab Interpretation Abnormal (test code = 61319-0) [facility] VBG POC docked [id number] 11:16:15 Test Item Value Reference Range Interpretation Comments pH, Pankaj POC (test code 7.32 7.33-7.43 L = 36816820) pCO2,Pankaj POC (test code 31.0 See_Comment L [Au tomated = 23297754) message] The sy stem which generated this result transmitted reference range : 38 - 50 mmHg. The reference range was not used to interpret this result as normal/abnormal . PO2, Venous POC (BKR) 44 See_Comment L [Auto mated (test code = 74632605) [employer]] The system which generated this result transmitted reference range : 50 - 75 mm Hg. The reference range was not used to interpret this result as normal/abnormal . Ionized Calcium POC 1.24 mmol/L 1.15-1.29 (test code = 84669477) HCO3, Pankaj POC (test 16 mmol/L 22-26 L code = 97582291) TCO2 POC (test code = 17 mmol/L 21-32 L 05767185) Base Deficit, Pankaj POC -9 (test code = 90326284) Sample Type (test code STEPAN valencia Notified = 23686071) % Sat, Pankaj POC (test 77 % code = 18010365) Lab Interpretation Abnormal (test code = 26819-4) [facility] VBG POC docked [id number] 11:16:15 Test Item Value Reference Range Interpretation Comments pH, Pankaj POC (test code 7.32 7.33-7.43 L = 12168012) pCO2,Pankaj POC (test code 31.0 See_Comment L [Au tomated = 72532017) message] The sy stem which generated this result transmitted reference range : 38 - 50 mmHg. The reference range was not used to interpret this result as normal/abnormal . PO2, Venous POC (BKR) 44 See_Comment L [Auto mated (test code = 91448503) [employer]] The system which generated this result transmitted reference range : 50 - 75 mm Hg. The reference range was not used to interpret this result as normal/abnormal . Ionized Calcium POC 1.24 mmol/L 1.15-1.29 (test code = 14024276) HCO3, Pankaj POC (test 16 mmol/L 22-26 L code = 36046321) TCO2 POC (test code = 17 mmol/L 21-32 L 51380720) Base Deficit, Pankaj POC -9 (test code = 51396239) Sample Type (test code IVEN Physi erik Notified = 42971210) % Sat, Pankaj POC (test 77 % code = 69578529) Lab Interpretation Abnormal (test code = 78471-3) [facility] VBG POC docked [id number] 11:16:15 Test Item Value Reference Range Interpretation Comments pH, Pankaj POC (test code 7.32 7.33-7.43 L = 17427929) pCO2,Pankaj POC (test code 31.0 See_Comment L [Au tomated = 22230724) message] The sy stem which generated this result transmitted reference range : 38 - 50 mmHg. The reference range was not used to interpret this result as normal/abnormal . PO2, Venous POC (BKR) 44 See_Comment L [Auto mated (test code = 90610233) [employer]] The system which generated this result transmitted reference range : 50 - 75 mm Hg. The reference range was not used to interpret this result as normal/abnormal . Ionized Calcium POC 1.24 mmol/L 1.15-1.29 (test code = 17157601) HCO3, Pankaj POC (test 16 mmol/L 22-26 L code = 54772495) TCO2 POC (test code = 17 mmol/L 21-32 L 00068232) Base Deficit, Pankaj POC -9 (test code = 57827256) Sample Type (test code IVEN Physi erik Notified = 55374453) % Sat, Pankaj POC (test 77 % code = 71056375) Lab Interpretation Abnormal (test code = 71299-5) [facility] VBG POC docked [id number] 11:16:15 Test Item Value Reference Range Interpretation Comments pH, Pankaj POC (test code 7.32 7.33-7.43 L = 64575829) pCO2,Pankaj POC (test code 31.0 See_Comment L [Au tomated = 72252911) message] The sy stem which generated this result transmitted reference range : 38 - 50 mmHg. The reference range was not used to interpret this result as normal/abnormal . PO2, Venous POC (BKR) 44 See_Comment L [Auto mated (test code = 90243814) [employer]] The system which generated this result transmitted reference range : 50 - 75 mm Hg. The reference range was not used to interpret this result as normal/abnormal . Ionized Calcium POC 1.24 mmol/L 1.15-1.29 (test code = 58121368) HCO3, Pankaj POC (test 16 mmol/L 22-26 L code = 61562636) TCO2 POC (test code = 17 mmol/L 21-32 L 70099009) Base Deficit, Pankaj POC -9 (test code = 45806084) Sample Type (test code IVFLORENCE Physi erik Notified = 50695932) % Sat, Pankaj POC (test 77 % code = 45385781) Lab Interpretation Abnormal (test code = 43235-7) [facility] VBG POC docked [id number] 11:16:15 Test Item Value Reference Range Interpretation Comments pH, Pankaj POC (test code 7.32 7.33-7.43 L = 67251862) pCO2,Pankaj POC (test code 31.0 See_Comment L [Au tomated = 10318371) message] The sy stem which generated this result transmitted reference range : 38 - 50 mmHg. The reference range was not used to interpret this result as normal/abnormal . PO2, Venous POC (BKR) 44 See_Comment L [Auto mated (test code = 72929870) messa ge] The system which generated this result transmitted reference range : 50 - 75 mm Hg. The reference range was not used to interpret this result as normal/abnormal . Ionized Calcium POC 1.24 mmol/L 1.15-1.29 (test code = 33566015) HCO3, Pankaj POC (test 16 mmol/L 22-26 L code = 29706918) TCO2 POC (test code = 17 mmol/L 21-32 L 05770835) Base Deficit, Pankaj POC -9 (test code = 38687300) Sample Type (test code STEPAN Physi erik Notified = 83561842) % Sat, Pankaj POC (test 77 % code = 43912390) Lab Interpretation Abnormal (test code = 87434-6) [facility] VBG POC docked [id number] 11:16:15 Test Item Value Reference Range Interpretation Comments pH, Pankaj POC (test code 7.32 7.33-7.43 L = 44533158) pCO2,Pankaj POC (test code 31.0 See_Comment L [Au tomated = 71741034) message] The sy stem which generated this result transmitted reference range : 38 - 50 mmHg. The reference range was not used to interpret this result as normal/abnormal . PO2, Venous POC (BKR) 44 See_Comment L [Auto mated (test code = 03511809) messa ge] The system which generated this result transmitted reference range : 50 - 75 mm Hg. The reference range was not used to interpret this result as normal/abnormal . Ionized Calcium POC 1.24 mmol/L 1.15-1.29 (test code = 92609956) HCO3, Pankaj POC (test 16 mmol/L 22-26 L code = 78865846) TCO2 POC (test code = 17 mmol/L 21-32 L 05749117) Base Deficit, Pankaj POC -9 (test code = 43938945) Sample Type (test code STEPAN Physi erik Notified = 02391982) % Sat, Pankaj POC (test 77 % code = 17406919) Lab Interpretation Abnormal (test code = 99677-0) [facility] VBG POC docked [id number] 11:16:15 Test Item Value Reference Range Interpretation Comments pH, Pankaj POC (test code 7.32 7.33-7.43 L = 14526437) pCO2,Pankaj POC (test code 31.0 See_Comment L [Au tomated = 61921926) message] The sy stem which generated this result transmitted reference range : 38 - 50 mmHg. The reference range was not used to interpret this result as normal/abnormal . PO2, Venous POC (BKR) 44 See_Comment L [Auto mated (test code = 32862601) messa ge] The system which generated this result transmitted reference range : 50 - 75 mm Hg. The reference range was not used to interpret this result as normal/abnormal . Ionized Calcium POC 1.24 mmol/L 1.15-1.29 (test code = 29270640) HCO3, Pankaj POC (test 16 mmol/L 22-26 L code = 25283013) TCO2 POC (test code = 17 mmol/L 21-32 L 23368218) Base Deficit, Pankaj POC -9 (test code = 32014966) Sample Type (test code IVFLORENCE Physi erik Notified = 87012819) % Sat, Pankaj POC (test 77 % code = 02784964) Lab Interpretation Abnormal (test code = 89967-8) [facility] VBG POC docked [id number] 11:16:15 Test Item Value Reference Range Interpretation Comments pH, Pankaj POC (test code 7.32 7.33-7.43 L = 95665048) pCO2,Pankaj POC (test code 31.0 See_Comment L [Au tomated = 42181942) message] The sy stem which generated this result transmitted reference range : 38 - 50 mmHg. The reference range was not used to interpret this result as normal/abnormal . PO2, Venous POC (BKR) 44 See_Comment L [Auto mated (test code = 40731343) [employer]] The system which generated this result transmitted reference range : 50 - 75 mm Hg. The reference range was not used to interpret this result as normal/abnormal . Ionized Calcium POC 1.24 mmol/L 1.15-1.29 (test code = 24017135) HCO3, Pankaj POC (test 16 mmol/L 22-26 L code = 00596893) TCO2 POC (test code = 17 mmol/L 21-32 L 20333319) Base Deficit, Pankaj POC -9 (test code = 60950609) Sample Type (test code IVFLORENCE Physi erik Notified = 41593770) % Sat, Pankaj POC (test 77 % code = 19132268) Lab Interpretation Abnormal (test code = 43712-6) [facility] VBG POC docked [id number] 11:16:15 Test Item Value Reference Range Interpretation Comments pH, Pankaj POC (test code 7.32 7.33-7.43 L = 48926934) pCO2,Pankaj POC (test code 31.0 See_Comment L [Au tomated = 53871086) message] The sy stem which generated this result transmitted reference range : 38 - 50 mmHg. The reference range was not used to interpret this result as normal/abnormal . PO2, Venous POC (BKR) 44 See_Comment L [Auto mated (test code = 79151349) kaiser haywarda ] The system which generated this result transmitted reference range : 50 - 75 mm Hg. The reference range was not used to interpret this result as normal/abnormal . 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 Institution Manager: [id number]: 1970 Requested By: TANJA Garza Number: [id number] Reading MD: Chiara Calles MeasurementsIntervals [place] Rate: 75 P: 84PR: 153 QRS: 67QRSD: 104 T: 77QT: 344 QTc: 373 Interpretive StatementsSINUS RHYTHMPOSSIBLE RIGHT VENTRICULAR CONDUCTION DELAY [RSR (QR) IN V1/V2]Electronically Signed On 01-09-2022 8:27:19 CDT [place] [address] LEAD [id number] 20:59:5612 LEAD EKG FOR [facility] Test Date: 8126-56-47Pfx Name: DORA JOSEPH Department: 5520Patient ID: [id number] Room: Gender: M Financial Institution Manager: [id number]: 1970 Requested By: TANJA Garza Number: [id number] Reading MD: Chiara Calles MeasurementsIntervals [place] Rate: 75 P: 84PR: 153 QRS: 67QRSD: 104 T: 77QT: 344 QTc: 373 Interpretive StatementsSINUS RHYTHMPOSSIBLE RIGHT VENT RICULAR CONDUCTION DELAY [RSR (QR) IN V1/V2]Electronically Signed On 01-09-2022 8:27:19 CDT by ChiaraInterface FoundrybakariRETAIL PRO12 LEAD [id number] 20:59:5612 LEAD EKG FOR [facility] Test Date: 4491-47-19Wmj Name: DORA JOSEPH Department: 5520Patient ID: [id number] Room: Gender: Financial Institution Manager: [id number]: 1970 Requested By: TANJA Garza Number: [id number] Reading MD: Chiara Calles MeasurementsIntervals [place] Rate: 75 P: 84PR: 153 QRS: 67QRSD: 104 T: 77QT: 344 QTc: 373 Interpretive StatementsSINUS RHYTHMPOSSIBLE RIGHT VENTRICULAR CONDUCTION DELAY [RSR (QR) IN V1/V2]Electronically Signed On 01-09-2022 8:27:19 CDT by ChiaraInterface [employer]bakariRE[employer]IL [employer]12 LEAD [id number] 20:59:5612 LEAD EKG FOR [facility] Test Date: 7628-86-22Tnl Name: DORA JOSEPH Department: 5520Patient ID: [id number] Room: Gender: Financial Institution Manager: [id number]: 1970 Requested By: TANJA Garza Number: [id number] Reading MD: Chiara Calles MeasurementsIntervals [place] Rate: 75 P: 84PR : 153 QRS: 67QRSD: 104 T: 77QT: 344 QTc: 373 Interpretive StatementsSINUS RHYTHMPOSSIBLE RIGHT VENTRICULAR CONDUCTION DELAY [RSR (QR) IN V1/V2]Electronically Signed On 01-09-2022 8:27:19 CDT by Philo Mediarobert Interface [employer]ak[employer]RE[employer]12 LEAD [id number] 20:59:5612 LEAD EKG FOR [facility] Test Date: 0890-14-84Ybr Name: DORA GENESEO Department: 5520Patient ID: [id number] Room: Gender: M Financial Institution Manager: [id number]: 1970 Requested By: TANJA Garza Number: [id number] Reading MD: Chiara Calles MeasurementsIntervals [place] Rate: 75 P: 84PR: 153 QRS: 67QRSD: 104 T: 77QT: 344 QTc: 373 Interpretive StatementsSINUS RHYTHMPOSSIBLE RIGHT VENTRICULAR CONDUCTION DELAY [RSR (QR) IN V1/V2]Electronically Signed On 01-09-2022 8:27:19 CDT by ChiaraInterface [employer]akariRE[employer]12 LEAD [id number] 20:59:5612 LEAD EKG FOR [facility] Test Date: 9690-66-97Feo Name: DORA JOSEPH Department: 5520Patient ID: [id number] Room: Gender: M Financial Institution Manager: [id number]: 1970 Requested By: TAJNA Garza Number: [id number] Reading MD: Chiara Calles MeasurementsIntervals [place] Rate: 75 P: 84PR: 153 QRS: 67QRSD: 104 T: 77QT: 344 QTc: 373 Interpretive StatementsSINUS RHYTHMPOSSIBLE RIGHT VENTR ICULAR CONDUCTION DELAY [RSR (QR) IN V1/V2]Electronically Signed On 01-09-2022 8:27:19 CDT by Chiara Interface FoundrybakariE2E NetworksCom[employer] LEAD [id number] 20:59:5612 LEAD EKG FOR [facility] Test Date: 0534-14-53Urk Name: DORA PAEZRY Department: 5520Patient ID: [id number] Room: Gender: M Financial Institution Manager: [id number]: 1970 Requested By: TANJA Garza Number: [id number] Reading MD: Chiara Calles MeasurementsIntervals [place] Rate: 75 P: 84PR: 153 QRS: 67QRSD: 104 T: 77QT: 344 QTc: 373 Interpretive StatementsSINUS RHYTHMPOSSIBLE RIGHT VENTRICULAR CONDUCTION DELAY [RSR (QR) IN V1/V2]Electronically Signed On 01-09-2022 8:27:19 CDT by Chiara Interface [employer]bakariE2E [employer] LEAD [id number] 20:59:5612 LEAD EKG FOR [facility] Test Date: 1255-43-39Xdm Name: DORA PAEZRY Department: 5520Patient ID: [id number] Room: Gender: M Financial Institution Manager: [id number]: 1970 Requested By: TANJA Garza Number: [id number] Reading MD: Chiara Calles MeasurementsIntervals [place] Rate: 75 P: 84P R: 153 QRS: 67QRSD: 104 T: 77QT: 344 QTc: 373 Interpretive StatementsSINUS RHYTHMPOSSIBLE RIGHT VENTRICULAR CONDUCTION DELAY [RSR (QR) IN V1/V2]Electronically Signed On 01-09-2022 8:27:19 CDT by Chiara Esqueda7 [employer] LEAD [id number] 20:59:5612 LEAD EKG FOR [facility] Test Date: 9678-91-12Hme Name: DORA PAEZRY Department: 5520Patient ID: [id number] Room: Gender: M Financial Institution Manager: [id number]: 1970 Requested By: TANJA Garza Number: [id number] Reading MD: Chiara Calles MeasurementsIntervals [place] Rate: 75 P: 84PR: 153 QRS: 67QRSD: 104 T: 77QT: 344 QTc: 373 Interpretive StatementsSINUS RHYTHMPOSSIBLE RIGHT VENTRICULAR CONDUCTION DELAY [RSR (QR) IN V1/V2]Electronically Signed On 01-09-2022 8:27:19 CDT by [place]7 [employer] LEAD [id number] 20:59:5612 LEAD EKG FOR [facility] Test Date: 1053-99-68Cue Name: DORA GENESEO Department: 5520Patient ID: [id number] Room: Gender: M Financial Institution Manager: [id number]: 1970 Requested By: TANJA Garza Number: [id number] Reading MD: Chiara Calles MeasurementsIntervals [place] Rate: 75 P: 84PR: 153 QRS: 67QRSD: 104 T: 77QT: 344 QTc: 373 Interpretive StatementsSINUS RHYTHMPOSSIBLE RIGHT VENT RICULAR CONDUCTION DELAY [RSR (QR) IN V1/V2]Electronically Signed On 01-09-2022 8:27:19 CDT by [facility] BallardRadialogicaChrist[place] [address] LEAD [id number] 20:59:5612 LEAD EKG FOR [facility] Test Date: 9942-90-75Jcx Name: DORA JOSEPH Department: 5520Patient ID: [id number] Room: Gender: M Financial Institution Manager: [id number]: 1970 Requested By: TANJA Garza Number: [id number] Reading MD: Chiara Calles MeasurementsIntervals [place] Rate: 75 P: 84PR: 153 QRS: 67QRSD: 104 T: 77QT: 344 QTc: 373 Interpretive StatementsSINUS RHYTHMPOSSIBLE RIGHT VENTRICULAR CONDUCTION DELAY [RSR (QR) IN V1/V2]Electronically Signed On 01-09-2022 8:27:19 CDT by [facility] Datasnap.ioChrist[place] [address] LEAD [id number] 20:59:5612 LEAD EKG FOR [facility] Test Date: 2480-36-36Dzm Name: DORA JOSEPH Department: 5520Patient ID: [id number] Room: Gender: M Financial Institution Manager: [id number]: 1970 Requested By: TANJA Garza Number: [id number] Reading MD: Chiara Calles MeasurementsIntervals [place] Rate: 75 P: 84P R: 153 QRS: 67QRSD: 104 T: 77QT: 344 QTc: 373 Interpretive StatementsSINUS RHYTHMPOSSIBLE RIGHT VENTRICULAR CONDUCTION DELAY [RSR (QR) IN V1/V2]Electronically Signed On 01-09-2022 8:27:19 CDT by [facility] System[facility]Do[facility] W/AUTO [id number] 23:52:00 Test Item Value Reference Range Interpretation [...] = MX#) 0.8 k/mm3 0.1-0.8 N LIVER [id number] 20:04:00 Test Item Value Reference Range Interpretation Comments TOTAL PROTEIN (test code 6.7 GM/DL 5.0-8.0 N Per formed by = PROT) 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 [facility] ALBUMIN (test code = [...] 67 UNITS/L 25-125 N LYNDSEY) BASIC METABOLIC [id number] 19:54:00 Test Item Value Reference Range Interpretation [...] POCGLU) 81 MG/DL - CT ABD PELVIS W/[id number] 00:00:00 [facility] : 1970 Sex: M Name: HOANG JOSEPH FSED : 1970 Age/S: 51 / M [address] [facility] Unit #: [id number] Loc: [place] [address] Phys: Raffaele Levi MD Acct: [id number] Dis Date: Status: PRE ER PHONE #: Exam Date: 09/23/20211999 FAX #: Reason: RUQ PAIN, VOMITING EXAMS: CPT CODE: [id number] CT ABD PELVIS W/CONT 05419 PROCEDURE INFORMATION: Exam: CT Abdomen And Pelvis [...] : 1970 Age/S: 51 / M [address] [facility] Unit #: [id number] Loc: [place] [address] Phys: Raffaele Levi MD Acct: [id number] Dis Date: Status: PRE ER PHONE #: Exam Date: 09/23/20211999 FAX #: Reason: RUQ PAIN, VOMITING EXAMS: CPT CODE:[id number] CT ABD PELVIS W/CONT 82324 <Continued> abdominal small bowel loops may relate to incomplete luminal distention or enteritis. 2. 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 No obstruction. Electronically Signedby Renée Juarez on 09/23/2021 at 2049 Reported and signed by: Juan Juarez M.D. CC: Raffaele Levi MD Technologist:Stephanie Albrecht, RT(R)(CT) CTDI: DLP: Trnscb Date/Time: 09/23/2021 (2048) [email or web address] Orig Print D/T: S: 09/23/2021 (2049) PAGE 2 Signed ReportCOMP. METABOLIC PANEL (33964)2021-09-14 03:57:44 Test Item Value Reference Range Interpretation Comments NA (test code = 132 mmol/L 135-145 L 3873459885) K (test code = 4.1 mmol/L 3.5-5.0 1190811727) CL (test code = 101 mmol/L 98-108 3403070793) CO2 TOTAL (test code = 23 mmol/L 23-31 6202461455) AGAP (test code = 2-16 2976679729) BUN (test code = 23 mg/dL 7-23 7347822326) GLUCOSE (test code = 97 mg/dL 70-110 3171812091) CREATININE (test code = 1.48 mg/dL 0.60-1.25 H 6166284194) TOTAL BILI (test code = 0.3 mg/dL 0.1-1.5 0496855659) CALCIUM (test code = 9.0 mg/dL 8.6-10.6 3684457401) T PROTEIN (test code = 6.2 g/dL 6.3-8.2 L 4696441377) ALBUMIN (test code = 3.7 g/dL 3.5-5.0 1980582131) ALK PHOS (test code = 82 U/L 34-122 8208656116) ALTv (test code = 21 U/L 5-50 2-6) AST(SGOT) (test code = 20 U/L 13-40 9178868166) eGFR (test code = mL/min/1.73m2 1557995621) GILBERTO (test code = GILBERTO) Association of [...] tests). Lab Interpretation Abnormal (test code = 46238-3) [facility] WITH [id number] 03:52:42 Test Item Value Reference Range Interpretation Comments WBC (test code = See_Comment [Automated 0290-2) message] The sy stem which generated this result transmitted reference range : 4.20 - 10.70 10*3/?L. The reference range was not used to interpret this result as normal/abnormal . RBC (test code = See_Comment L [Automated 489-8) message] The sy stem which generated this [...] RDW-SD (test code = 47.2 fL 38.5-51.6 29034-4) RDW-CV (test code = 14.0 % 12.1-15.4 788-0) PLT (test code = See_Comment H [Automated 777-3) message] The sy stem which generated this result transmitted reference range : 150 - 328 10*3/ ?L. The reference r meredith was not used to interpret this result as normal/abnormal . MPV (test code = 9.2 fL 9.8-13.0 L 48961-6) NRBC/100 WBC (test See_Comment [Automat ed code = 8221905293) message] The system which generated this result transmitted reference range : 0.0 - 10.0 /100 WBCs. The refer ence range was not u sed to interpret th is result as normal/abnormal . NRBC x10^3 (test code <0.01 See_Comment [Auto mated = 8931626319) message] The s ystem which generated this result transmitted reference range : 10*3/?L. The reference range was not used to interpret this result as normal/abnormal . GRAN MAT (NEUT) % 61.3 % (test code = 770-8) IMM GRAN % (test code 0.20 % = 7916911890) LYMPH % (test code = 23.1 % 736-9) MONO % (test code = 13.7 % 5905-5) EOS % (test code = 1.5 % 713-8) BASO % (test code = 0.2 % 706-2) GRAN MAT x10^3(ANC) 2.78 10*3/uL 1.99-6.95 (test code = 4400379243) IMM GRAN x10^3 (test <0.03 0.00-0.06 code = 9498503972) LYMPH x10^3 (test code 1.05 10*3/uL 1.09-3.23 L = 731-0) MONO x10^3 (test code 0.62 10*3/uL 0.36-1.02 = 742-7) EOS x10^3 (test code = 0.07 10*3/uL 0.06-0.53 711-2) BASO x10^3 (test code <0.03 0.01-0.09 = 704-7) Lab Interpretation Abnormal (test code = 92624-8) [facility] [id number] 13:36:34 Test Item Value Reference Interpretation Comments Range TROPONIN I (test 0.001 ng/mL See_Comment [Automated code = 2803967428) message] The system which generated this result [...] biotin. Lab Interpretation Normal (test code = 20562-4) [facility] [id number] 13:36:34 Test Item Value Reference Range Interpretation Comments NT-proBNP (test code 79 pg/mL See_Comment [Autom ated = 3942613413) message] The system which generated this result transmitted reference range : <=125. The reference range was not used to interpret this result as normal/abnormal . GILBERTO (test code = GILBERTO) Biotin has been reported to cause a negative bias, interpret results relative to patient's use of biotin. Lab Interpretation Normal (test code = 56858-4) [facility]NA, K, CL, CO2, GLUCOSE, BUN, CREATININE, CA)2021-09-12 13:24:32 Test Item Value Reference Range Interpretation Comments NA (test code = 134 mmol/L 135-145 L 1314467868) K (test code = 4.3 mmol/L 3.5-5.0 7599682682) CL (test code = 102 mmol/L 98-108 8139444895) CO2 TOTAL (test code = 23 mmol/L 23-31 5326669946) AGAP (test code = 2-16 0962242158) BUN (test code = 22 mg/dL 7-23 3866696531) GLUCOSE (test code = 89 mg/dL 70-110 9499876563) CREATININE (test code = 1.69 mg/dL 0.60-1.25 H 7029170725) CALCIUM (test code = 9.0 mg/dL 8.6-10.6 3081005535) eGFR (test code = mL/min/1.73m2 9176841912) GILBETRO (test code = GILBERTO) Association of Glomerular [...] tests). Lab Interpretation Abnormal (test code = 45219-4) [facility] WITH [id number] 13:09:28 Test Item Value Reference Range Interpretation [...] RDW-SD (test code = 45.3 fL 38.5-51.6 49944-8) RDW-CV (test code = 13.9 % 12.1-15.4 788-0) PLT (test code = See_Comment H [Automated 777-3) message] The sy stem which generated this result transmitted reference range : 150 - 328 10*3/ ?L. The reference r meredith was not used to interpret this result as normal/abnormal . MPV (test code = 9.0 fL 9.8-13.0 L 30470-8) NRBC/100 WBC (test See_Comment [Automat ed code = 9408627866) message] The system which generated this result transmitted reference range : 0.0 - 10.0 /100 WBCs. The refer ence range was not u sed to interpret th is result as normal/abnormal . NRBC x10^3 (test code <0.01 See_Comment [Auto mated = 0979796684) message] The s ystem which generated this result transmitted reference range : 10*3/?L. The reference range was not used to interpret this result as normal/abnormal . GRAN MAT (NEUT) % 69.7 % (test code = 770-8) IMM GRAN % (test code 0.40 % = 9036514360) LYMPH % (test code = 16.9 % 736-9) MONO % (test code = 11.9 % 5905-5) EOS % (test code = 0.7 % 713-8) BASO % (test code = 0.4 % 706-2) GRAN MAT x10^3(ANC) 3.88 10*3/uL 1.99-6.95 (test code = 0497831629) IMM GRAN x10^3 (test <0.03 0.00-0.06 code = 0933009646) LYMPH x10^3 (test code 0.94 10*3/uL 1.09-3.23 L = 731-0) MONO x10^3 (test code 0.66 10*3/uL 0.36-1.02 = 742-7) EOS x10^3 (test code = 0.04 10*3/uL 0.06-0.53 L 711-2) BASO x10^3 (test code <0.03 0.01-0.09 = 704-7) Lab Interpretation Abnormal (test code = 12094-8) [facility] WITH [id number] 05:55:28 Test Item Value Reference Range Interpretation [...] RDW-SD (test code = 45.4 fL 38.5-51.6 72921-2) RDW-CV (test code = 13.8 % 12.1-15.4 788-0) PLT (test code = See_Comment [Automated 777-3) message] The sy stem which generated this result transmitted reference range : 150 - 328 10*3/ ?L. The reference r meredith was not used to interpret this result as normal/abnormal . MPV (test code = 9.2 fL 9.8-13.0 L 85031-1) NRBC/100 WBC (test See_Comment [Automat ed code = 7980698180) message] The system which generated this result transmitted reference range : 0.0 - 10.0 /100 WBCs. The refer ence range was not u sed to interpret th is result as normal/abnormal . NRBC x10^3 (test code <0.01 See_Comment [Auto mated = 5531137815) message] The s ystem which generated this result transmitted reference range : 10*3/?L. The reference range was not used to interpret this result as normal/abnormal . GRAN MAT (NEUT) % 60.6 % (test code = 770-8) IMM GRAN % (test code 0.20 % = 0411165816) LYMPH % (test code = 25.5 % 736-9) MONO % (test code = 10.5 % 5905-5) EOS % (test code = 2.8 % 713-8) BASO % (test code = 0.4 % 706-2) GRAN MAT x10^3(ANC) 3.23 10*3/uL 1.99-6.95 (test code = 3790652057) IMM GRAN x10^3 (test <0.03 0.00-0.06 code = 0523164180) LYMPH x10^3 (test code 1.36 10*3/uL 1.09-3.23 = 731-0) MONO x10^3 (test code 0.56 10*3/uL 0.36-1.02 = 742-7) EOS x10^3 (test code = 0.15 10*3/uL 0.06-0.53 711-2) BASO x10^3 (test code <0.03 0.01-0.09 = 704-7) Lab Interpretation Abnormal (test code = 35117-9) [facility] Test Item Value Reference Range Interpretation Comments LIPASE (test code = 5799982878) 116 U/L 0-220 Lab Interpretation (test code = Normal 76381-0) [facility]. METABOLIC PANEL ([id number])2021-09-09 05:48:46 Test Item Value Reference Range Interpretation Comments NA (test code = 137 mmol/L 135-145 9357540321) K (test code = 4.0 mmol/L 3.5-5.0 4642000066) CL (test code = 108 mmol/L 98-108 9509946619) CO2 TOTAL (test code = 22 mmol/L 23-31 L 5406605452) AGAP (test code = 2-16 2152684007) BUN (test code = 23 mg/dL 7-23 4308520204) GLUCOSE (test code = 89 mg/dL 70-110 0117205530) CREATININE (test code = 1.28 mg/dL 0.60-1.25 H 7974804889) TOTAL BILI (test code = 0.4 mg/dL 0.1-1.7 8360232901) CALCIUM (test code = 8.9 mg/dL 8.6-10.6 7426200075) T PROTEIN (test code = 6.0 g/dL 6.3-8.2 L 1846595021) ALBUMIN (test code = 3.5 g/dL 3.5-5.0 5196693484) ALK PHOS (test code = 67 U/L 34-122 2372572314) ALTv (test code = 18 U/L 5-50 1742-6) AST(SGOT) (test code = 22 U/L 13-40 1046937941) eGFR (test code = mL/min/1.73m2 4502379846) GILBERTO (test code = GILBERTO) Association of [...] tests). Lab Interpretation Abnormal (test code = 28805-0) [facility]. METABOLIC PANEL (29593)2021-09-08 02:29:45 Test Item Value Reference Range Interpretation Comments NA (test code = 138 mmol/L 135-145 6815346178) K (test code = 4.3 mmol/L 3.5-5.0 9777416084) CL (test code = 106 mmol/L 98-108 7039187119) CO2 TOTAL (test code = 27 mmol/L 23-31 7658292549) AGAP (test code = 2-16 6183558550) BUN (test code = 22 mg/dL 7-23 1067524459) GLUCOSE (test code = 90 mg/dL 70-110 1377085767) CREATININE (test code = 1.36 mg/dL 0.60-1.25 H 3605674851) TOTAL BILI (test code = 0.4 mg/dL 0.1-1.2 7339443070) CALCIUM (test code = 9.2 mg/dL 8.6-10.6 3847303898) T PROTEIN (test code = 6.5 g/dL 6.3-8.2 9369973626) ALBUMIN (test code = 3.8 g/dL 3.5-5.0 8614609793) ALK PHOS (test code = 73 U/L 34-122 6911998138) ALTv (test code = 19 U/L 5-50 1742-6) AST(SGOT) (test code = 24 U/L 13-40 1453422290) eGFR (test code = mL/min/1.73m2 0174793444) GILBERTO (test code = GILBERTO) Association of [...] tests). Lab Interpretation Abnormal (test code = 34287-0) [facility]29[facility]45 Test Item Value Reference Range Interpretation Comments LIPASE (test code = 7366550748) 75 U/L 0-220 Lab Interpretation (test code = Normal 54473-3) [facility] WITH [id number] 02:15:21 Test Item Value Reference Range Interpretation Comments WBC (test code = See_Comment [Automated 2593-2) message] The sy stem which generated this [...] RDW-SD (test code = 45.9 fL 38.5-51.6 04355-0) RDW-CV (test code = 13.6 % 12.1-15.4 788-0) PLT (test code = See_Comment [Automated 777-3) message] The sy stem which generated this result transmitted reference range : 150 - 328 10*3/ ?L. The reference r meredith was not used to interpret this result as normal/abnormal . MPV (test code = 9.4 fL 9.8-13.0 L 58491-5) NRBC/100 WBC (test See_Comment [Automat ed code = 2457446861) message] The system which generated this result transmitted reference range : 0.0 - 10.0 /100 WBCs. The refer ence range was not u sed to interpret th is result as normal/abnormal . NRBC x10^3 (test code <0.01 See_Comment [Auto mated = 4072261121) message] The s ystem which generated this result transmitted reference range : 10*3/?L. The reference range was not used to interpret this result as normal/abnormal . GRAN MAT (NEUT) % 66.0 % (test code = 770-8) IMM GRAN % (test code 0.50 % = 4721031300) LYMPH % (test code = 20.0 % 736-9) MONO % (test code = 9.8 % 5905-5) EOS % (test code = 3.5 % 713-8) BASO % (test code = 0.2 % 706-2) GRAN MAT x10^3(ANC) 3.77 10*3/uL 1.99-6.95 (test code = 9902482064) IMM GRAN x10^3 (test 0.03 10*3/uL 0.00-0.06 code = 4216002420) LYMPH x10^3 (test code 1.14 10*3/uL 1.09-3.23 = 731-0) MONO x10^3 (test code 0.56 10*3/uL 0.36-1.02 = 742-7) EOS x10^3 (test code = 0.20 10*3/uL 0.06-0.53 711-2) BASO x10^3 (test code <0.03 0.01-0.09 = 704-7) Lab Interpretation Abnormal (test code = 16929-6) [facility] [id number] 02:10:44 Test Item Value Reference Range Interpretation Comments LACTIC ACID (test code = 1.35 mmol/L 0.50-2.20 6139535328) Lab Interpretation (test code = Normal 02525-2) [facility] [id number] 15:31:19 Test Item Value Reference Range Interpretation Comments Case Report (test code Surgical Pathology ? ? = [id number]) ?Case: [id number] ? Authorizing Provider: ?Bia Pedro MD ?Collected: ? 09/03/2021 08 ?Ordering Location: ? ? [facility] OR ? Received: ?09/03/2021841 ? Department ? Pathologist: ? Shaneka Douglas MD ? Specimen: ? ?ILEUM, Ileostomy ( staple ?end proximal ) ? Final Diagnosis (test u6swqKXeOMWik3ojFPRbiT code = 0106809876) FuZzEwMzNcZnRuYmpcdWMx IHtccnRmMVxlcGljOTYwMV lijfRmCQKgvVKxM1Hsgdeq JKaxWA1uBP1uhEienSQmsA YaPNFnZxYoz1vpp090sZXv p8eiWSLOxerwgXb2eSofW1 3ut9C4VjdzM80xtDRoSFP3 SPBwMMDheDQfKZYzPFT2HU LvtGOiQ0mqFUBuQV1xjgdr QBqcQIuwJMYpdPK5TYXfiR ShM7SaWBCuRNzzMORzvdk8 MmLnQq4zcVKkcAybYMfyPR JkXHBsYWluXGZzMjBccGFy IEEuIElMRVVNLCBJTEVPU1 JASLs2RSUwkhQvSYTqPE8x QkVOSUdOIElMRUFMIFRJU1 GWMCDICOPWLBSZO3MAJL6M W38EJSxaZPQZB8wCJeYlCX 8BYIAMDcvNF4RSTHNKKOAP RUxTLCBccGFyICAgICAgIC SRQ55BYGQXFD8BUXbKXBcf SSkEF5TDX45QRXAezmzxWH JcZnMyMiBTcmkgQmhhcmF0 wJjtB7R6kAJzQSDQDkJVNR JeroeuSOG3g2tohOFvMOXm tVSqWoBqTYZjXIXzk4xgDI VmbGFuZzEwMzNcZnRuYmpc rZMwYGAhCiEth1unp963dZ Jup5sbJAYvNaS2pVXbZCZv hEwwccz4dQakVvCxCWCmo8 lzcyBcZmNoYXJzZXQwIEFy qXHqC915GIItIIari0tqo6 PlENBjrWPic5M6WMQORHbl KmGrQ108t3qzi1fczaPazT V4XSOjCRW7PMdinpFirfQ1 YIywgUXgBsD2DMuiajQtUK ywrvUdirXsQiw6TAXoW453 UBB8aQbkv3mfRBI7PZItWU AoUbvwAx8foOPeN585XIRs HLTPDVHhuLc0DPCikkXwiy MgtLXBk644Z756m4kgABMo mtYdoKpAgcnff1ykT957HK BhcGVydzEyMjQwXHBhcGVy aEU3PFTlOY2jgolwXCnxXW gsLUXnlrK7ZXIsjKXiT8Cz VABaKV8qshjgYED2XQczKC ZgXFT0FxJlALMyo4Xipjj9 PuGonf9lfs10KOC1e0KhbQ gbVNO9ANR0LsYaNs9ldVKj UHEvXJ3kBwEftEBpMDLehn 55mJzzATjjvkEesU2nBeOj VJFaxUAtGFHsHT3icXKiTD KyzG5aoicnXNIfXdNgdjtj RACfdHpocfIlWg6yhYyjDM U6RChsV2cyeM3wUiX1XXvz Z3ykqZ8gLBf5WFvnvJB1LR LxfM6xVT8dshvep1hcUGaf NZhlLYCoksH4ctH4JPRhkD SjD0WspO0uCVUcWL7ozzdc d4mcZHJ7LStkIGZkRTS1Vy YgCXSkd3Ftegd1SzLcg6Sq uEDmXGhmV70fz351FHHbce JtI6ephFZhgzmyqLJizofx YNnwmgA3DULtKNZiZJchGO YxXGZzMjBcbGFuZzEwMzNc aGljaFxmMVxkYmNoXGYxXG viW2xqCuZtV2RzVMRqHaWx lLPiCGsrxRD0GENwTQCik5 6opGk0XZIpxmjwv1BvXIAs qMHaaXPdjE4lvlPup5cjZV IhBQSdFUBiH7ZfOVF6pRQd YKUaeUMbpEX2WF3ozaHzIN 1hZGUgYnkgcmVzaWRlbnRz MNUhUKfzf4uoTI5pQULrrI uprD7efIR7WWXyn8tqsFMj dCWqx8xcf3OeyuWrRKrmPO ClIZieZAPyJBAzJM7vQMOh lLWnhdCdz4E7TgpnoAEfwl kaTsxavwY9SXuxsyqpWANt IAmsU4jrLfQwIAMgjHuqKt uum3HgONBsGHCbXvntkTJy fX0= Clinical Information 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] 4029865654) Gross Description (test c4cruTHjBBAieXWMABDyAx code = 6064776493) gbmvFzFEGmfAPcM0Adhfhj XUwfXG2dSO5fqEigsDTaoC SdPH4JHLPmKcCaFBQwvCSx bqWhYaSoNKLqxYKyoTA6TO ZbKQ6iujayFTwnRHfjCYAr zxL8TCLbhWGlU2GfXMTuTS 5ojccvZJK6QBdthB6owvAO QxomYs5vpIYvwZzjHsOoLd NoYXJzZXQwXGZuaWwgQXJp BZk6pJ3BAfepSBV7SJBJCn gwKJGkOM4Qd2jbWQBgdFKl FMJ8HJgrtDCvWHKgUBJxXI f3OARoHDgfdLVcWY6mrHym QgaeePpjm4IjjDAyRLnpJR HuUYVoTItxSGKcNM1ZArLp OIgVHIXkGXYpRjU3AEe6DR ZOCsTiFkMrSMw8Omy3MiCz PXd9SFr7PFsXPbCdTWZ6Lh CdVxG2ESY4YBBiMPktpWTy IFxcZiBBcmlhbCBcXGZzID WjZNohLsolQAwnX69seDfc kG8eRvDyEQOBDbUBHSHXRK 2liEQpXM6TIRQsROlcFXYp aTOQROZ0RE0gBUBMSqyzeM AaIRFcmSryONgoqA7pLS5J JVi0wfAaOVMxPfAxK8HjO1 wpTE5nRCDuynKiGOKqlHOq ZCBmcmVzaCBhbmQgbGFiZW lcEME5cFNmSVKxAMPbMWLo LY71S4HrosQjSBpsVHqvtz TrDwGmHHDedLK8uThdvDki w4L6q089UPYqhXHvaTJhEX 1mXTLsd6xerPWaZdNvkaWr U37ql8oaiXJrk5VoUVK1FC 4lfZfvxaOaYBpmVT37IF1k YNKeOYtoRFDwz7TjOHz1Id UaS14gvA1aaYDmN7GyAZH9 IDQuMiBjbSBpbiBkaWFtZX Kzioizd4h4aGMqQVM5e82u IDubEkqtrVSaQgZsY46xQK jbmhDyJGuyhTloGMC1sPoh WGEopSXjGaZ7NK0aCtOsd6 0nv2iyqwTmgdDoJVGexHEh pDPxSZOzl7ApyHfajrMpMN UjzN0hTYSpSGTmyCIobJ1x biBpcyBvcGVuIHRvIHJldm OwcLL6PL7qyUrbczRhvj5q g2t2WYLuljOzWPFtDREzIH XcgJKdz1ZwNOABLBOmVRFq nyOlqAo9BJCcIOX9nS2wrh JantSer2WztTf1bACaDRfd KZRxXMQlxf73U3cwIZKeJE BhciANClxwYXIgDQpBMTog lOZmpFlsJFgmyMBlD4jcTS WzNOEkQEIhdcFavFf4UXFm dGJxSD8GGLD2TZI8r95bWE BbDVFsZEQilvJijJq4JSoz GACjOAkVGvydLk66YUwyp2 MmqTwffsGlpsZlGO90GDKq ykIcdMMrTO9OVBNzliUJBd S4uNefUWh6JWT7PAemIOT0 xV4bt7ywb4JmQjALv2Suy8 JxhjVvc5C7UBXunRibaS6p TR5nxwziXOYaEBW7y2OuYO QXAFuxqQzmhL9jHMBwX84j y6HGc7TiKTBgUXxot3ahnT vax2VisOOpNNjxKQPpjENo VGbhtH8xCgVgw4biiAu9QO nyokI3YRZpkk5BGdxowO3m YeWrt3cyyYe3UHECEsloym D8b2xliJpnt5NlnUSoFB0L Cn0= Disclaimer (test code = p5pbkZXdTJSdb9hsSSPlrG 4869735422) FuZzEwMzNcZnRuYmpcdWMx KSewgoKlYPwtu2XgR1TsGp AwMFxhbnNpXGRlZmxhbmcx RXGfQSB2xxHsCMCmGQybUG PwZQkoFx8fhBLxpStpIuGd EZZgz2gftsFXVSczVzPjQ5 17AJSuLHdgb4lna4EfJWKa iCVnf3S5PVVOkjfdoAf7fT rgG51al6C1XyvhL5dtEWWv ICIhC7WdIE7lBNYjJmp3SW H6YBM1CNUlXTBjV3PnWE0l EBUorRDrVEd8g2zjnRgvOV PyHEN1l9tuSIsldtSrGS8q wa2zfSd2i7rgalEzROFzSS NlzCLGWICuX7EpqGohIp4r tBl8hXjjGxtgGYU8Htb9NZ 8xaf17qam1pYksIVEqivbi EmI3BAztUMKeiwwqLKa8UO wfANMqrIO9ZEOstQPxX1Zn RRHtZQ4owyp1UKY1XNgeDC SnUmS4WBNluFCyNMQcsEnd XGoiw823QLP0JnLiFV3kA7 Ftk5Z4kU6keAPmHJYzbIDf EaAfJSLhny7joNSoNJggh8 IbFVD5ipG6eRVsnASgMKNk AS56Maqhi1CjPoqwk9UfX2 5kfDQ6TCiwk3cvPU6fOaG7 fhFaPIcxy9bsaR1jApT1LT rqIS0iBK7kMZWmtJ1jqfki XHBnYnJkcmhlYWRccGdicm KbHc9bkAxeHMS1HAjnB5pc nL5zNmA9ORqaN0qnvS8nQP u7ZCiwnGK2NINttA1yOU4a pxjnl7udJPncQFgmJMTyaa X7reB6FGJtaFUxS9MqjR0r GHJkMP3rbikgx4kvWQC2GF qaAXMtEFN0WsSsYDRmd8Jw azz0XaHcx0ZgrDVmFCsuQ1 0fr156SLPgciLkU4vluSSe kfnzzRJmezyjZBqmfnZ8FM FqfeCix2EdJOOlXKE6TXwa EDunsSHwUIKeyKtaa0ebG2 RscGFyXHBsYWluXGYxXGZz MjBcbGFuZzEwMzNcaGljaF ndXIzpHuPqGKGgXOnnM3xy WaErW5ScPYMqAtGceSUoN3 ggVGhpcyByZXBvcnQgbWF5 BIszR4i2DARussYrzXl2jw AgJrHsQSYpRBH1JUhkjFMv HIOax6PnxunkqUWcXp2teG KaTYKatZ8zNCOzCIDkMYdf HB4rcPz6KFVGvVAzwRThHt CEIZAqPC38zjNdHVRVrhwf o3M5UEorSMQss6HzhCXqV8 fjc2JgAMKhz99qCO0up9B3 f5vxLDG0YG1ma2SrKFHfaW OlnUWwXXEvo1Pfuplbp6Tc WFErsgXas4QyUPFaeoEgcV BqLPQgnrCgxk5rdlYxLMGj QLGmX3BcaedcpNnzcnAiRB Gslb4ayzFuILY0BZDKFKIz WVAgg0BzlQ2psMMXUPT3qY Bdpl4iwvVOhEXpKKXtiu27 ZNEoTL8yQ9voXQZrMJGwzx DbhLMnv9GxAAUoaWA7qMLr RH8WGcHDs56wPAGnOTBLod LnXLGwsEdutXV3ywH4uJ0l IChGREEpLlx+IFRoZSBGRE BrCA4wxvRdd8HlglLlaMog YGKxaOFiq4NhzEEii0YszF jrp6MoxAOtvUEwFQ5vDTWs clxwYXIgVVRNQiBMYWJvcm L6m7WzFOYiGPTrQZR1iQqd efc6JDPnkY2qRNHmB2isft vdUJukTHWyj0PzwL6wbUCG cFTck1MnpWWjfUCEnQDzTJ 6jzzWyGPtMXYqLSJE1qqBq RWShb6AdAGhjS6guZ26qrW ecaLc4aRK1POJ3tV6xPba+ IFxwYXJccGFyIEFwcHJvcH VuMVPdhUhpemUaK5IodtAj uA1xeVVewhEpPY3wPR0lT9 C0jHWwHPEwujXkq2miWDnf dmUgYmVlbiByZXZpZXdlZC Iri1XsSSouMXF1RKumquNl bmNsdWRpbmcgSCZFLCBTcG XmfZUtVWD0DHiysiXxauZy MD7sxS4vxMpshR3htRGtbH B5jvnkSTTtRMSvtTbtCVXq VO1jgGZsIOWleyBIeZhksP ExpC5oJ9EgFCAvPZQuja6j AERriF8iBVwbz4NyxyieSU CzVCJxINNyilJxvh1lMCXe kIZBUI0SCDiyoAKtz1Jsmk VyE7eVUMW1MFXnBbCkDxod VSYxtFYtxYSrERGyuk12NW DntG4akEqcTCExdL9ksC0n zAwqtA0yZaQaDdKwKTgoNG 7aMFWjY1kdhTGeSVWdGKTc P2dvFfRpcY0tuHmwBHvpBz RnMhQfFKegRQG4mF== Embedded Images (test code = 7016151083) [facility] Peripheral [id number] 09:01:06 Test Item Value Reference Range Interpretation Comments Blood Culture-Aerobic No organisms No growth Previo us (test code = 40207-1) isolated prelim inary verified result was Culture In Progress on 08/31/2021 at 060 1 CSTPrevious preliminary verified result was No growth a t 24 hours on 09/01/2021 at 030 1 CSTPrevious preliminary verified result was No growth a t 48 hours on 09/02/2021 at 03 01 CSTPrevious preliminary verified result was No growth a t 72 hours on 09/03/2021 at 03 01 [employer] Blood No organisms No growth Previous Culture-Anaerobic isolated preliminar y (test code = 62878-9) verifi ed result was Culture In Progress on 08/31/2021 at 060 1 CSTPrevious preliminary verified result was No growth a t 24 hours on 09/01/2021 at 030 1 CSTPrevious preliminary verified result was No growth a t 48 hours on 09/02/2021 at 03 01 CSTPrevious preliminary verified result was No growth a t 72 hours on 09/03/2021 at 03 01 [employer] Lab Interpretation Normal (test code = 49582-8) [facility] METABOLIC PANEL (NA, K, CL, CO2, GLUCOSE, BUN, CREATININE, CA)2021-09-04 13:22:54 Test Item Value Reference Range Interpretation Comments NA (test code = 132 mmol/L 135-145 L 8760649386) K (test code = 4.3 mmol/L 3.5-5.0 9783724815) CL (test code = 104 mmol/L 98-108 6266683286) CO2 TOTAL (test code = 23 mmol/L 23-31 1267728566) AGAP (test code = 2-16 3396726308) BUN (test code = 15 mg/dL 7-23 8266968615) GLUCOSE (test code = 96 mg/dL 70-110 9044351193) CREATININE (test code = 1.42 mg/dL 0.60-1.25 H 2201845182) CALCIUM (test code = 8.7 mg/dL 8.6-10.6 1651333785) eGFR (test code = mL/min/1.73m2 3314208323) GILBERTO (test code = GILBERTO) Association of [...] tests). Lab Interpretation Abnormal (test code = 92611-5) [facility] METABOLIC PANEL (NA, K, CL, CO2, GLUCOSE, BUN, CREATININE, CA)2021-09-04 13:22:54 Test Item Value Reference Range Interpretation Comments NA (test code = 132 mmol/L 135-145 L [id number]) K (test code = 4.3 mmol/L 3.5-5.0 3289295323) CL (test code = 104 mmol/L 98-108 3910644113) CO2 TOTAL (test code = 23 mmol/L 23-31 6076163840) AGAP (test code = 2-16 5301074667) BUN (test code = 15 mg/dL 7-23 5441456610) GLUCOSE (test code = 96 mg/dL 70-110 0221164987) CREATININE (test code = 1.42 mg/dL 0.60-1.25 H 0362192249) CALCIUM (test code = 8.7 mg/dL 8.6-10.6 0762504082) eGFR (test code = mL/min/1.73m2 5783731790) GILBERTO (test code = GILBERTO) Association of [...] tests). Lab Interpretation Abnormal (test code = 29516-8) [facility] CULTURE [id number] 17:16:36 Test Item Value Reference Range Interpretation Comments Blood Culture Coagulase negative Addition al Workup (test Staphylococcus work-up perfo rmed code = 600-7) only per reque st. Culture plate(s ) will be saved until this date : 09/08/21 Gram stain Isolated from aerobic (test code = bottle Gram positive 664-3) cocci in [facility] CULTURE [id number] 17:16:36 Test Item Value Reference Range Interpretation Comments Blood Culture Coagulase negative Addition al Workup (test Staphylococcus work-up perfo rmed code = 600-7) only per reque st. Culture plate(s ) will be saved until this date : 09/08/21 Gram stain Isolated from aerobic (test code = bottle Gram positive 664-3) cocci in [facility] Culture - Peripheral Vein # 17:16:26 Test Item Value Reference Range Interpretation Comments Blood Culture-Aerobic Culture positive. No growth AA P revious (test code = 97542-0) See Blood Culture p reliminary Workup for verified result additional was Culture In information. Progress on 08/31/2021 at 060 1 [employer] Blood No organisms No growth Previous Culture-Anaerobic isolated preliminar y (test code = 72454-6) verifi ed result was Culture In Progress on 09/01/2021 at 012 7 [employer] Lab Interpretation Abnormal (test code = 88223-4) [facility] [id number] 17:16:26 Test Item Value Reference Range Interpretation Comments Blood Culture-Aerobic Culture positive. No growth AA P revious (test code = 86031-8) See Blood Culture p reliminary Workup for verified result additional was Culture In information. Progress on 08/31/2021 at 060 1 [employer] Blood No organisms No growth Previous Culture-Anaerobic isolated preliminar y (test code = 20756-8) verifi ed result was Culture In Progress on 09/01/2021 at 012 7 [employer] Lab Interpretation Abnormal (test code = 47215-4) [facility] (NA, K, CL, CO2, GLUCOSE, BUN, CREATININE, CA)2021-09-03 12:16:04 Test Item Value Reference Range Interpretation Comments NA (test code = 130 mmol/L 135-145 L [id number]) K (test code = 4.1 mmol/L 3.5-5.0 1595992190) CL (test code = 103 mmol/L 98-108 4682580539) CO2 TOTAL (test code = 21 mmol/L 23-31 L 2989790783) AGAP (test code = 2-16 7472036681) BUN (test code = 14 mg/dL 7-23 9715117162) GLUCOSE (test code = 90 mg/dL 70-110 0043437291) CREATININE (test code = 1.28 mg/dL 0.60-1.25 H 9052754715) CALCIUM (test code = 8.8 mg/dL 8.6-10.6 1156972200) eGFR (test code = mL/min/1.73m2 6519578467) GILBERTO (test code = GILBERTO) Association of [...] tests). Lab Interpretation Abnormal (test code = 94755-5) [facility] (NA, K, CL, CO2, GLUCOSE, BUN, CREATININE, CA)2021-09-03 12:16:04 Test Item Value Reference Range Interpretation Comments NA (test code = 130 mmol/L 135-145 L 1500789114) K (test code = 4.1 mmol/L 3.5-5.0 9154268333) CL (test code = 103 mmol/L 98-108 5814773194) CO2 TOTAL (test code = 21 mmol/L 23-31 L 3866836093) AGAP (test code = 2-16 8770355186) BUN (test code = 14 mg/dL 7-23 2659164067) GLUCOSE (test code = 90 mg/dL 70-110 1387716914) CREATININE (test code = 1.28 mg/dL 0.60-1.25 H 1940217650) CALCIUM (test code = 8.8 mg/dL 8.6-10.6 1887384227) eGFR (test code = mL/min/1.73m2 7547471880) GILBERTO (test code = GILBERTO) Association of [...] tests). Lab Interpretation Abnormal (test code = 66457-5) [facility] WITHOUT [id number] 11:53:39 Test Item Value Reference Range Interpretation Comments WBC (test code = 6690-2) See_Comment [A utomated message] The system [employer] generated this result transmit dain reference range : 4.20 - 10.70 10*3/?L. The reference range was not used to interpret this result as normal/abnormal . RBC (test code = 789-8) See_Comment L [Au tomated message] The system [employer] generated this result transmit dain reference range [...] 777-3) See_Comment [Au tomated message] The system [employer] generated this result transmit dain reference range : 150 - 328 10*3/?L. The reference range was not used to interpret this result as normal/abnormal . MPV (test code = 10.1 fL 9.8-13.0 12446-7) RDW-CV (test code = 13.5 % 12.1-15.4 788-0) RDW-SD (test code = 44.6 fL 38.5-51.6 99748-3) NRBC x10^3 (test code = <0.01 See_Comment [Au tomated message] 5528202452) The system [employer] generated this result transmit dain reference range : 10*3/?L. The reference range was not used to interpret this result as normal/abnormal . NRBC/100 WBC (test code See_Comment [Au tomated message] = 6654647898) The system [facility] generated this result transmit dain reference range : 0.0 - 10.0 /100 WBC s. The reference r meredith was not used to interpret this result as normal/abnormal . IPF % (test code = 7194835806) Lab Interpretation (test Abnormal code = 85282-0) [facility] WITHOUT [id number] 11:53:39 Test Item Value Reference Range Interpretation Comments WBC (test code = 6690-2) See_Comment [A utomated message] The system [employer] generated this result transmit dain reference range : 4.20 - 10.70 10*3/?L. The reference range was not used to interpret this result as normal/abnormal . RBC (test code = 789-8) See_Comment L [Au tomated message] The system [employer] generated this result transmit dain reference range [...] 777-3) See_Comment [Au tomated message] The system [employer] generated this result transmit dain reference range : 150 - 328 10*3/?L. The reference range was not used to interpret this result as normal/abnormal . MPV (test code = 10.1 fL 9.8-13.0 45533-0) RDW-CV (test code = 13.5 % 12.1-15.4 788-0) RDW-SD (test code = 44.6 fL 38.5-51.6 91337-1) NRBC x10^3 (test code = <0.01 See_Comment [Au tomated message] 6646302493) The system [employer] generated this result transmit dain reference range : 10*3/?L. The reference range was not used to interpret this result as normal/abnormal . NRBC/100 WBC (test code See_Comment [Au tomated message] = 5713816158) The system [employer] generated this result transmit dain reference range : 0.0 - 10.0 /100 WBC s. The reference r meredith was not used to interpret this result as normal/abnormal . IPF % (test code = 9056177988) Lab Interpretation (test Abnormal code = 49437-8) [facility] METABOLIC PANEL (NA, K, CL, CO2, GLUCOSE, BUN, CREATININE, CA)2021-09-02 12:06:01 Test Item Value Reference Range Interpretation Comments NA (test code = 132 mmol/L 135-145 L 0099386596) K (test code = 4.4 mmol/L 3.5-5.0 1957080186) CL (test code = 106 mmol/L 98-108 7085851732) CO2 TOTAL (test code = 22 mmol/L 23-31 L 8979365177) AGAP (test code = 2-16 0617865036) BUN (test code = 16 mg/dL 7-23 0365362910) GLUCOSE (test code = 83 mg/dL 70-110 5036695902) CREATININE (test code = 1.33 mg/dL 0.60-1.25 H 3789984590) CALCIUM (test code = 8.8 mg/dL 8.6-10.6 7655913650) eGFR (test code = mL/min/1.73m2 6927692942) GILBERTO (test code = GILBERTO) Association of [...] tests). Lab Interpretation Abnormal (test code = 44971-6) [facility] METABOLIC PANEL (NA, K, CL, CO2, GLUCOSE, BUN, CREATININE, CA)2021-09-02 12:06:01 Test Item Value Reference Range Interpretation Comments NA (test code = 132 mmol/L 135-145 L 3234721899) K (test code = 4.4 mmol/L 3.5-5.0 1172139334) CL (test code = 106 mmol/L 98-108 5432703292) CO2 TOTAL (test code = 22 mmol/L 23-31 L 3226416339) AGAP (test code = 2-16 9136358838) BUN (test code = 16 mg/dL 7-23 9352944567) GLUCOSE (test code = 83 mg/dL 70-110 6508040752) CREATININE (test code = 1.33 mg/dL 0.60-1.25 H 2164159741) CALCIUM (test code = 8.8 mg/dL 8.6-10.6 5565461910) eGFR (test code = mL/min/1.73m2 4929180043) GILBERTO (test code = GILBERTO) Association of [...] tests). Lab Interpretation Abnormal (test code = 67332-8) [facility] METABOLIC PANEL (NA, K, CL, CO2, GLUCOSE, BUN, CREATININE, CA)2021-09-01 21:55:22 Test Item Value Reference Range Interpretation Comments NA (test code = 130 mmol/L 135-145 L 8170429148) K (test code = 4.2 mmol/L 3.5-5.0 9219865383) CL (test code = 103 mmol/L 98-108 3931288061) CO2 TOTAL (test code = 20 mmol/L 23-31 L 8781988263) AGAP (test code = 2-16 9885907558) BUN (test code = 20 mg/dL 7-23 1554950216) GLUCOSE (test code = 106 mg/dL 70-110 3572587099) CREATININE (test code = 1.51 mg/dL 0.60-1.25 H 1055150418) CALCIUM (test code = 8.5 mg/dL 8.6-10.6 L 9706713647) eGFR (test code = mL/min/1.73m2 5398547841) GILBERTO (test code = GILBERTO) Association of [...] tests). Lab Interpretation Abnormal (test code = 26285-6) [facility] METABOLIC PANEL (NA, K, CL, CO2, GLUCOSE, BUN, CREATININE, CA)2021-09-01 21:55:22 Test Item Value Reference Range Interpretation Comments NA (test code = 130 mmol/L 135-145 L 6876828875) K (test code = 4.2 mmol/L 3.5-5.0 4006610615) CL (test code = 103 mmol/L 98-108 4966681613) CO2 TOTAL (test code = 20 mmol/L 23-31 L 4160618071) AGAP (test code = 2-16 0989051412) BUN (test code = 20 mg/dL 7-23 0008198412) GLUCOSE (test code = 106 mg/dL 70-110 6837793308) CREATININE (test code = 1.51 mg/dL 0.60-1.25 H 2959887047) CALCIUM (test code = 8.5 mg/dL 8.6-10.6 L 1340038074) eGFR (test code = mL/min/1.73m2 5401901337) GILBERTO (test code = GILBERTO) Association of [...] tests). Lab Interpretation Abnormal (test code = 41071-7) [facility] POSITIVE BLOOD PATHOGENS DNA [id number] 10:31:32 Test Item Value Reference Range Interpretation Comments Coagulase Negative Positive Negative, See A Staphylococcus (test Comment/Narrative code = 86693-3) GILBERTO (test code = GILBERTO) Coagulase negative [...] contact the Antimicrobial Stewardship Program with questions.Pager: ?[phone] Testing included eleven identification and three resistance marker targets. Lab Interpretation Abnormal (test code = 67655-3) [facility] POSITIVE BLOOD PATHOGENS DNA [id number] 10:31:32 Test Item Value Reference Range Interpretation Comments Coagulase Negative Positive Negative, See A Staphylococcus (test Comment/Narrative code = 89132-8) GILBERTO (test code = GILBERTO) Coagulase negative [...] contact the Antimicrobial Stewardship Program with questions.Pager: ?[phone] Testing included eleven identification and three resistance marker targets. Lab Interpretation Abnormal (test code = 10100-1) [facility] METABOLIC PANEL (NA, K, CL, CO2, GLUCOSE, BUN, CREATININE, CA)2021-09-01 08:38:47 Test Item Value Reference Range Interpretation Comments NA (test code = 130 mmol/L 135-145 L 1906471858) K (test code = 4.0 mmol/L 3.5-5.0 9247408368) CL (test code = 105 mmol/L 98-108 1993397329) CO2 TOTAL (test code = 20 mmol/L 23-31 L 5303864728) AGAP (test code = 2-16 3245188631) BUN (test code = 21 mg/dL 7-23 4704274044) GLUCOSE (test code = 88 mg/dL 70-110 7428830303) CREATININE (test code = 1.31 mg/dL 0.60-1.25 H 6947741510) CALCIUM (test code = 8.5 mg/dL 8.6-10.6 L 1217997564) eGFR (test code = mL/min/1.73m2 1501402385) GILBERTO (test code = GILBERTO) Association of [...] tests). Lab Interpretation Abnormal (test code = 57273-7) [facility] METABOLIC PANEL (NA, K, CL, CO2, GLUCOSE, BUN, CREATININE, CA)2021-09-01 08:38:47 Test Item Value Reference Range Interpretation Comments NA (test code = 130 mmol/L 135-145 L 3597641947) K (test code = 4.0 mmol/L 3.5-5.0 8430275988) CL (test code = 105 mmol/L 98-108 4827160844) CO2 TOTAL (test code = 20 mmol/L 23-31 L 3898844573) AGAP (test code = 2-16 9752619271) BUN (test code = 21 mg/dL 7-23 6087355063) GLUCOSE (test code = 88 mg/dL 70-110 2996815294) CREATININE (test code = 1.31 mg/dL 0.60-1.25 H 9403472645) CALCIUM (test code = 8.5 mg/dL 8.6-10.6 L 6270630735) eGFR (test code = mL/min/1.73m2 2481858565) GILBERTO (test code = GILBERTO) Association of [...] tests). Lab Interpretation Abnormal (test code = 32044-3) [facility] WITH [id number] 08:13:43 Test Item Value Reference Range Interpretation Comments WBC (test code = See_Comment [Automated 3896-2) message] The sy stem which generated this result transmitted reference range : 4.20 - 10.70 10*3/?L. The reference range was not used to interpret this result as normal/abnormal . RBC (test code = See_Comment L [Automated 132-7) message] The sy stem which generated this [...] RDW-SD (test code = 43.0 fL 38.5-51.6 33317-1) RDW-CV (test code = 13.7 % 12.1-15.4 788-0) PLT (test code = See_Comment [Automated 777-3) message] The sy stem which generated this result transmitted reference range : 150 - 328 10*3/ ?L. The reference r meredith was not used to interpret this result as normal/abnormal . MPV (test code = 9.9 fL 9.8-13.0 59658-2) NRBC/100 WBC (test See_Comment [Automat ed code = 6047542450) message] The system which generated this result transmitted reference range : 0.0 - 10.0 /100 WBCs. The refer ence range was not u sed to interpret th is result as normal/abnormal . NRBC x10^3 (test code <0.01 See_Comment [Auto mated = 9472783870) message] The s ystem which generated this result transmitted reference range : 10*3/?L. The reference range was not used to interpret this result as normal/abnormal . GRAN MAT (NEUT) % 48.2 % (test code = 770-8) IMM GRAN % (test code 0.40 % = 7313180459) LYMPH % (test code = 39.5 % 736-9) MONO % (test code = 9.0 % 5905-5) EOS % (test code = 2.3 % 713-8) BASO % (test code = 0.6 % 706-2) GRAN MAT x10^3(ANC) 2.35 10*3/uL 1.99-6.95 (test code = 1852344825) IMM GRAN x10^3 (test <0.03 0.00-0.06 code = 1027902253) LYMPH x10^3 (test code 1.93 10*3/uL 1.09-3.23 = 731-0) MONO x10^3 (test code 0.44 10*3/uL 0.36-1.02 = 742-7) EOS x10^3 (test code = 0.11 10*3/uL 0.06-0.53 711-2) BASO x10^3 (test code 0.03 10*3/uL 0.01-0.09 = 704-7) Lab Interpretation Abnormal (test code = 22456-1) [facility] WITH [id number] 08:13:43 Test Item Value Reference Range Interpretation [...] RDW-SD (test code = 43.0 fL 38.5-51.6 34016-2) RDW-CV (test code = 13.7 % 12.1-15.4 788-0) PLT (test code = See_Comment [Automated 777-3) message] The sy stem which generated this result transmitted reference range : 150 - 328 10*3/ ?L. The reference r meredith was not used to interpret this result as normal/abnormal . MPV (test code = 9.9 fL 9.8-13.0 57028-0) NRBC/100 WBC (test See_Comment [Automat ed code = 6337571023) message] The system which generated this result transmitted reference range : 0.0 - 10.0 /100 WBCs. The refer ence range was not u sed to interpret th is result as normal/abnormal . NRBC x10^3 (test code <0.01 See_Comment [Auto mated = 4267097312) message] The s ystem which generated this result transmitted reference range : 10*3/?L. The reference range was not used to interpret this result as normal/abnormal . GRAN MAT (NEUT) % 48.2 % (test code = 770-8) IMM GRAN % (test code 0.40 % = 4024725158) LYMPH % (test code = 39.5 % 736-9) MONO % (test code = 9.0 % 5905-5) EOS % (test code = 2.3 % 713-8) BASO % (test code = 0.6 % 706-2) GRAN MAT x10^3(ANC) 2.35 10*3/uL 1.99-6.95 (test code = 3509693351) IMM GRAN x10^3 (test <0.03 0.00-0.06 code = 2790639414) LYMPH x10^3 (test code 1.93 10*3/uL 1.09-3.23 = 731-0) MONO x10^3 (test code 0.44 10*3/uL 0.36-1.02 = 742-7) EOS x10^3 (test code = 0.11 10*3/uL 0.06-0.53 711-2) BASO x10^3 (test code 0.03 10*3/uL 0.01-0.09 = 704-7) Lab Interpretation Abnormal (test code = 59103-6) [id number] 06:37:20 Test Item Value Reference Range Interpretation Comments MAGNESIUM (test code = 3171542939) 1.9 mg/dL 1.7-2.4 Lab Interpretation (test code = Normal 49204-0) [facility] [id number] 06:37:20 Test Item Value Reference Range Interpretation Comments MAGNESIUM (test code = 8475709136) 1.9 mg/dL 1.7-2.4 Lab Interpretation (test code = Normal 51599-0) [facility] (NA, K, CL, CO2, GLUCOSE, BUN, CREATININE, CA)2021-09-01 02:46:47 Test Item Value Reference Range Interpretation Comments NA (test code = 132 mmol/L 135-145 L 2856835061) K (test code = 4.0 mmol/L 3.5-5.0 5615658177) CL (test code = 102 mmol/L 98-108 9195007850) CO2 TOTAL (test code = 21 mmol/L 23-31 L 4216485852) AGAP (test code = 2-16 4958352470) BUN (test code = 24 mg/dL 7-23 H 3624796301) GLUCOSE (test code = 95 mg/dL 70-110 9099510611) CREATININE (test code = 1.40 mg/dL 0.60-1.25 H 0091461498) CALCIUM (test code = 8.6 mg/dL 8.6-10.6 1361080364) eGFR (test code = mL/min/1.73m2 6073643465) GILBERTO (test code = GILBERTO) Association of [...] tests). Lab Interpretation Abnormal (test code = 20558-7) [facility] METABOLIC PANEL (NA, K, CL, CO2, GLUCOSE, BUN, CREATININE, CA)2021-09-01 02:46:47 Test Item Value Reference Range Interpretation Comments NA (test code = 132 mmol/L 135-145 L 0759552175) K (test code = 4.0 mmol/L 3.5-5.0 9033301648) CL (test code = 102 mmol/L 98-108 6532047739) CO2 TOTAL (test code = 21 mmol/L 23-31 L 0000176195) AGAP (test code = 2-16 2556671161) BUN (test code = 24 mg/dL 7-23 H 9192780739) GLUCOSE (test code = 95 mg/dL 70-110 2586651652) CREATININE (test code = 1.40 mg/dL 0.60-1.25 H 1477925749) CALCIUM (test code = 8.6 mg/dL 8.6-10.6 2562959162) eGFR (test code = mL/min/1.73m2 6576428280) GILBERTO (test code = GILBERTO) Association of [...] tests). Lab Interpretation Abnormal (test code = 94401-4) [facility] [id number] 12:49:48 Test Item Value Reference Range Interpretation Comments LACTIC ACID (test code = 2.02 mmol/L 0.50-2.20 QUE S 2125912056) Lab Interpretation (test code = Normal 95515-1) [facility] Acid Whole [id number] 12:49:48 Test Item Value Reference Range Interpretation Comments LACTIC ACID (test code = 2.02 mmol/L 0.50-2.20 QUE S 6807905706) Lab Interpretation (test code = Normal 21942-8) [facility] METABOLIC PANEL (NA, K, CL, CO2, GLUCOSE, BUN, CREATININE, CA)2021-08-31 12:29:06 Test Item Value Reference Range Interpretation Comments NA (test code = 129 mmol/L 135-145 L 0145675155) K (test code = 3.6 mmol/L 3.5-5.0 1283313877) CL (test code = 101 mmol/L 98-108 6022556264) CO2 TOTAL (test code = 18 mmol/L 23-31 L 6618541972) AGAP (test code = 2-16 9242020912) BUN (test code = 35 mg/dL 7-23 H 2459785081) GLUCOSE (test code = 97 mg/dL 70-110 5121170609) CREATININE (test code = 1.58 mg/dL 0.60-1.25 H 1616306049) CALCIUM (test code = 8.3 mg/dL 8.6-10.6 L 8941824936) eGFR (test code = mL/min/1.73m2 8723856545) GILBERTO (test code = GILBERTO) Association of [...] tests). Lab Interpretation Abnormal (test code = 35848-5) [facility] METABOLIC PANEL (NA, K, CL, CO2, GLUCOSE, BUN, CREATININE, CA)2021-08-31 12:29:06 Test Item Value Reference Range Interpretation Comments NA (test code = 129 mmol/L 135-145 L 5447560163) K (test code = 3.6 mmol/L 3.5-5.0 1730832571) CL (test code = 101 mmol/L 98-108 7500244308) CO2 TOTAL (test code = 18 mmol/L 23-31 L 6193676293) AGAP (test code = 2-16 1993804001) BUN (test code = 35 mg/dL 7-23 H 2293464803) GLUCOSE (test code = 97 mg/dL 70-110 9796475692) CREATININE (test code = 1.58 mg/dL 0.60-1.25 H 8266490155) CALCIUM (test code = 8.3 mg/dL 8.6-10.6 L 6067103574) eGFR (test code = mL/min/1.73m2 7744403059) GILBERTO (test code = GILBERTO) Association of [...] tests). Lab Interpretation Abnormal (test code = 67142-0) [facility] [id number] 07:42:44 Test Item Value Reference Range Interpretation Comments TSH (test code = See_Comment [Automated message] 5974527747) The system [employer] generated this result transmitted ref erence range: 0.45 - 4 .70 mIU/L. The refe rence range was not u sed to interpret this result as normal/abnor mal. Lab Interpretation (test Normal code = 20009-3) [facility] [id number] 07:42:44 Test Item Value Reference Range Interpretation Comments TSH (test code = See_Comment [Automated message] 7568521273) The system [employer] generated this result transmitted ref erence range: 0.45 - 4 .70 mIU/L. The refe rence range was not u sed to interpret this result as normal/abnor mal. Lab Interpretation (test Normal code = 34837-2) [facility] METABOLIC PANEL (NA, K, CL, CO2, GLUCOSE, BUN, CREATININE, CA)2021-08-31 07:40:43 Test Item Value Reference Range Interpretation Comments NA (test code = 129 mmol/L 135-145 L 9627290911) K (test code = 3.8 mmol/L 3.5-5.0 Slight 7471498677) hemolysis CL (test code = 102 mmol/L 98-108 8203765287) CO2 TOTAL (test code 18 mmol/L 23-31 L = 0992467912) AGAP (test code = 2-16 3828837573) BUN (test code = 46 mg/dL 7-23 H Slight 5211937997) hemolysis GLUCOSE (test code = 100 mg/dL 70-110 7803162973) CREATININE (test code 1.72 mg/dL 0.60-1.25 H = 9392199555) CALCIUM (test code = 8.5 mg/dL 8.6-10.6 L 9938864247) eGFR (test code = mL/min/1.73m2 9363003310) GILBERTO (test code = GILBERTO) Association of [...] tests). Lab Interpretation Abnormal (test code = 67543-7) [facility] METABOLIC PANEL (NA, K, CL, CO2, GLUCOSE, BUN, CREATININE, CA)2021-08-31 07:40:43 Test Item Value Reference Range Interpretation Comments NA (test code = 129 mmol/L 135-145 L 5575061669) K (test code = 3.8 mmol/L 3.5-5.0 Slight 2237004000) hemolysis CL (test code = 102 mmol/L 98-108 7013872217) CO2 TOTAL (test code 18 mmol/L 23-31 L = 3570076287) AGAP (test code = 2-16 8827287081) BUN (test code = 46 mg/dL 7-23 H Slight 6181416088) hemolysis GLUCOSE (test code = 100 mg/dL 70-110 4447177472) CREATININE (test code 1.72 mg/dL 0.60-1.25 H = 6377129630) CALCIUM (test code = 8.5 mg/dL 8.6-10.6 L 3854299108) eGFR (test code = mL/min/1.73m2 9407920163) GILBERTO (test code = GILBERTO) Association of [...] tests). Lab Interpretation Abnormal (test code = 18667-9) [facility] [id number] 07:08:01 Test Item Value Reference Range Interpretation Comments LACTIC ACID (test code = 1.96 mmol/L 0.50-2.20 QUE S 0213243564) Lab Interpretation (test code = Normal 56637-7) [facility] Whole [id number] 07:08:01 Test Item Value Reference Range Interpretation Comments LACTIC ACID (test code = 1.96 mmol/L 0.50-2.20 QUE S 4577535326) Lab Interpretation (test code = Normal 73665-4) [facility], SERUM OR [id number] 06:33:43 Test Item Value Reference Range Interpretation Comments OSMOLALITY (test code = See_Comment [Au tomated message] 0272414684) The system [employer] generated this result transmitted ref erence range: 278 - 30 5 mOsm/kg. The re ference range was not u sed to interpret this result as normal/abnor mal. Lab Interpretation (test Normal code = 62081-9) [facility], SERUM OR [id number] 06:33:43 Test Item Value Reference Range Interpretation Comments OSMOLALITY (test code = See_Comment [Au tomated message] 3487366755) The system [employer] generated this result transmitted ref erence range: 278 - 30 5 mOsm/kg. The re ference range was not u sed to interpret this result as normal/abnor mal. Lab Interpretation (test Normal code = 25425-3) [facility] [id number] 04:28:44 Test Item Value Reference Interpretation Comments Range TROPONIN I (test 0.003 ng/mL See_Comment [Automated code = 2376362146) message] The system which generated this result [...] biotin. Lab Interpretation Normal (test code = 74967-5) [facility] [id number] 04:28:44 Test Item Value Reference Interpretation Comments Range TROPONIN I (test 0.003 ng/mL See_Comment [Automated code = 2328196489) message] The system which generated this result [...] biotin. Lab Interpretation Normal (test code = 99998-1) [facility] METABOLIC PANEL (NA, K, CL, CO2, GLUCOSE, BUN, CREATININE, CA)2021-08-31 04:07:42 Test Item Value Reference Range Interpretation Comments NA (test code = 125 mmol/L 135-145 L 6850217582) K (test code = 4.1 mmol/L 3.5-5.0 Slight 0670275327) hemolysis CL (test code = 100 mmol/L 98-108 2855976005) CO2 TOTAL (test code 17 mmol/L 23-31 L = 2150230692) AGAP (test code = 2-16 7653376253) BUN (test code = 52 mg/dL 7-23 H Slight 0895865431) hemolysis GLUCOSE (test code = 94 mg/dL 70-110 0356819656) CREATININE (test code 1.77 mg/dL 0.60-1.25 H = 3406357987) CALCIUM (test code = 8.2 mg/dL 8.6-10.6 L 1517092440) eGFR (test code = mL/min/1.73m2 8763528306) GILBERTO (test code = GILBERTO) Association of [...] tests). Lab Interpretation Abnormal (test code = 79895-8) [facility] METABOLIC PANEL (NA, K, CL, CO2, GLUCOSE, BUN, CREATININE, CA)2021-08-31 04:07:42 Test Item Value Reference Range Interpretation Comments NA (test code = 125 mmol/L 135-145 L 6769941233) K (test code = 4.1 mmol/L 3.5-5.0 Slight 4557657593) hemolysis CL (test code = 100 mmol/L 98-108 6465387464) CO2 TOTAL (test code 17 mmol/L 23-31 L = 3874527812) AGAP (test code = 2-16 3629919925) BUN (test code = 52 mg/dL 7-23 H Slight 7067837050) hemolysis GLUCOSE (test code = 94 mg/dL 70-110 3669307945) CREATININE (test code 1.77 mg/dL 0.60-1.25 H = 9361774172) CALCIUM (test code = 8.2 mg/dL 8.6-10.6 L 5701575155) eGFR (test code = mL/min/1.73m2 3689067180) GILBERTO (test code = GILBERTO) Association of [...] tests). Lab Interpretation Abnormal (test code = 62286-3) [facility] [id number] 00:22:59 Test Item Value Reference Interpretation Comments Range TROPONIN I (test 0.003 ng/mL See_Comment [Automated code = 7762047769) message] The system which generated this result [...] biotin. Lab Interpretation Normal (test code = 59874-9) [facility] [id number]-[id number] 00:22:59 Test Item Value Reference Range Interpretation Comments NT-proBNP (test code 55 pg/mL See_Comment [Autom ated = 7270739447) message] The system which generated this result transmitted reference range : <=125. The reference range was not used to interpret this result as normal/abnormal . GILBERTO (test code = GILBERTO) Biotin has been reported to cause a negative bias, interpret results relative to patient's use of biotin. Lab Interpretation Normal (test code = 64448-8) [facility] [id number] 00:22:59 Test Item Value Reference Interpretation Comments Range TROPONIN I (test 0.003 ng/mL See_Comment [Automated code = 2369545729) message] The system which generated this result [...] biotin. Lab Interpretation Normal (test code = 56514-0) [facility] [id number] 00:22:59 Test Item Value Reference Range Interpretation Comments NT-proBNP (test code 55 pg/mL See_Comment [Autom ated = 7569138119) message] The system which generated this result transmitted reference range : <=125. The reference range was not used to interpret this result as normal/abnormal . GILBERTO (test code = GILBERTO) Biotin has been reported to cause a negative bias, interpret results relative to patient's use of biotin. Lab Interpretation Normal (test code = 39802-3) [facility] ([id number])2021-08-31 00:07:17 Test Item Value Reference Range Interpretation Comments NA (test code = 126 mmol/L 135-145 L 1827822830) K (test code = 4.3 mmol/L 3.5-5.0 Slight 3223909458) hemolysis CL (test code = 96 mmol/L 98-108 L 6230333098) CO2 TOTAL (test code 18 mmol/L 23-31 L = 7197014071) AGAP (test code = 2-16 7065559284) BUN (test code = 58 mg/dL 7-23 H Slight 7318254684) hemolysis GLUCOSE (test code = 108 mg/dL 70-110 7197192536) CREATININE (test code 2.11 mg/dL 0.60-1.25 H = 0207274549) TOTAL BILI (test code 0.7 mg/dL 0.1-1.1 = 1137416616) CALCIUM (test code = 9.2 mg/dL 8.6-10.6 4398413504) T PROTEIN (test code 7.6 g/dL 6.3-8.2 = 1847186480) ALBUMIN (test code = 4.9 g/dL 3.5-5.0 4137088528) ALK PHOS (test code = 96 U/L 34-122 Slight 5052004871) hemolysis ALTv (test code = 27 U/L 5-50 1742-6) AST(SGOT) (test code 46 U/L 13-40 H Slight = 1424349464) hemolysis eGFR (test code = mL/min/1.73m2 8106580859) GILBERTO (test code = GILBERTO) Association of [...] tests). Lab Interpretation Abnormal (test code = 38137-7) [facility]. METABOLIC PANEL ([id number])2021-08-31 00:07:17 Test Item Value Reference Range Interpretation Comments NA (test code = 126 mmol/L 135-145 L 1303096007) K (test code = 4.3 mmol/L 3.5-5.0 Slight 9913789930) hemolysis CL (test code = 96 mmol/L 98-108 L 5884497015) CO2 TOTAL (test code 18 mmol/L 23-31 L = 5752854110) AGAP (test code = 2-16 0442917516) BUN (test code = 58 mg/dL 7-23 H Slight 4542099363) hemolysis GLUCOSE (test code = 108 mg/dL 70-110 2749785799) CREATININE (test code 2.11 mg/dL 0.60-1.25 H = 9263229233) TOTAL BILI (test code 0.7 mg/dL 0.1-1.1 = 0125126519) CALCIUM (test code = 9.2 mg/dL 8.6-10.6 8251787821) T PROTEIN (test code 7.6 g/dL 6.3-8.2 = 5623411496) ALBUMIN (test code = 4.9 g/dL 3.5-5.0 5972394583) ALK PHOS (test code = 96 U/L 34-122 Slight [id number]) hemolysis ALTv (test code = 27 U/L 5-50 1742-6) AST(SGOT) (test code 46 U/L 13-40 H Slight = [id number]) hemolysis eGFR (test code = mL/min/1.73m2 5314407324) GILBERTO (test code = GILBERTO) Association of [...] tests). Lab Interpretation Abnormal (test code = 59486-3) [facility] WITH [id number] 23:36:10 Test Item Value Reference Range Interpretation Comments WBC (test code = See_Comment [Automated 9936-2) message] The sy stem which generated this result transmitted reference range : 4.20 - 10.70 10*3/?L. The reference range was not used to interpret this result as normal/abnormal . RBC (test code = See_Comment [Automated 580-8) message] The sy stem which generated this [...] RDW-SD (test code = 41.7 fL 38.5-51.6 29112-7) RDW-CV (test code = 13.4 % 12.1-15.4 788-0) PLT (test code = See_Comment [Automated 777-3) message] The sy stem which generated this result transmitted reference range : 150 - 328 10*3/ ?L. The reference r meredith was not used to interpret this result as normal/abnormal . MPV (test code = 10.3 fL 9.8-13.0 63994-3) NRBC/100 WBC (test See_Comment [Automat ed code = 3262271162) message] The system which generated this result transmitted reference range : 0.0 - 10.0 /100 WBCs. The refer ence range was not u sed to interpret th is result as normal/abnormal . NRBC x10^3 (test code <0.01 See_Comment [Auto mated = 2204111076) message] The s ystem which generated this result transmitted reference range : 10*3/?L. The reference range was not used to interpret this result as normal/abnormal . GRAN MAT (NEUT) % 60.6 % (test code = 770-8) IMM GRAN % (test code 0.30 % = 8447943554) LYMPH % (test code = 29.1 % 736-9) MONO % (test code = 8.8 % 5905-5) EOS % (test code = 0.6 % 713-8) BASO % (test code = 0.6 % 706-2) GRAN MAT x10^3(ANC) 4.08 10*3/uL 1.99-6.95 (test code = 4198061026) IMM GRAN x10^3 (test <0.03 0.00-0.06 code = 8738993920) LYMPH x10^3 (test code 1.96 10*3/uL 1.09-3.23 = 731-0) MONO x10^3 (test code 0.59 10*3/uL 0.36-1.02 = 742-7) EOS x10^3 (test code = 0.04 10*3/uL 0.06-0.53 L 711-2) BASO x10^3 (test code 0.04 10*3/uL 0.01-0.09 = 704-7) Lab Interpretation Abnormal (test code = 10502-5) [facility] WITH [id number] 23:36:10 Test Item Value Reference Range Interpretation [...] RDW-SD (test code = 41.7 fL 38.5-51.6 57898-9) RDW-CV (test code = 13.4 % 12.1-15.4 788-0) PLT (test code = See_Comment [Automated 777-3) message] The sy stem which generated this result transmitted reference range : 150 - 328 10*3/ ?L. The reference r meredith was not used to interpret this result as normal/abnormal . MPV (test code = 10.3 fL 9.8-13.0 52764-9) NRBC/100 WBC (test See_Comment [Automat ed code = 3812392767) message] The system which generated this result transmitted reference range : 0.0 - 10.0 /100 WBCs. The refer ence range was not u sed to interpret th is result as normal/abnormal . NRBC x10^3 (test code <0.01 See_Comment [Auto mated = 1168098362) message] The s [employer] which generated this result transmitted reference range : 10*3/?L. The reference range was not used to interpret this result as normal/abnormal . GRAN MAT (NEUT) % 60.6 % (test code = 770-8) IMM GRAN % (test code 0.30 % = 7879858206) LYMPH % (test code = 29.1 % 736-9) MONO % (test code = 8.8 % 5905-5) EOS % (test code = 0.6 % 713-8) BASO % (test code = 0.6 % 706-2) GRAN MAT x10^3(ANC) 4.08 10*3/uL 1.99-6.95 (test code = 3337387241) IMM GRAN x10^3 (test <0.03 0.00-0.06 code = 6628049271) LYMPH x10^3 (test code 1.96 10*3/uL 1.09-3.23 = 731-0) MONO x10^3 (test code 0.59 10*3/uL 0.36-1.02 = 742-7) EOS x10^3 (test code = 0.04 10*3/uL 0.06-0.53 L 711-2) BASO x10^3 (test code 0.04 10*3/uL 0.01-0.09 = 704-7) Lab Interpretation Abnormal (test code = 88652-4) [facility] [id number] 00:24:00 Test Item Value Reference Range Interpretation Comments POCT GP A STREP (test code = Negative Negative - Negative 69030-1) Lab Interpretation (test code = Normal 95303-0) [facility] 11:38:43 Test Item Value Reference Range Interpretation Comments PALB (test code = 07731-7) 25.2 mg/dL 18.0-45.0 Lab Interpretation (test code = Normal 53935-8) [facility] (NA, K, CL, CO2, GLUCOSE, BUN, CREATININE, CA)2021-08-05 11:30:59 Test Item Value Reference Range Interpretation Comments NA (test code = 140 mmol/L 135-145 7006565494) K (test code = 4.2 mmol/L 3.5-5.0 4006577339) CL (test code = 110 mmol/L 98-108 H 7024428068) CO2 TOTAL (test code = 27 mmol/L 23-31 5267132123) AGAP (test code = 2-16 5895887977) BUN (test code = 9 mg/dL 7-23 8837110349) GLUCOSE (test code = 86 mg/dL 70-110 6309632884) CREATININE (test code = 1.51 mg/dL 0.60-1.25 H 3500967380) CALCIUM (test code = 8.5 mg/dL 8.6-10.6 L 2771690058) eGFR (test code = mL/min/1.73m2 2279276353) GILBERTO (test code = GILBERTO) Association of [...] tests). Lab Interpretation Abnormal (test code = 38416-8) [facility]59 Test Item Value Reference Range Interpretation Comments MAGNESIUM (test code = 5938901775) 2.0 mg/dL 1.7-2.4 Lab Interpretation (test code = Normal 04753-9) [facility] 11:30:59 Test Item Value Reference Range Interpretation Comments PHOSPHORUS (test code = 8322392830) 5.1 mg/dL 2.5-5.0 H Lab Interpretation (test code = Abnormal 40693-9) [facility] 11:30:59 Test Item Value Reference Range Interpretation Comments ALBUMIN (test code = 0500640198) 3.1 g/dL 3.5-5.0 L Lab Interpretation (test code = Abnormal 07883-2) [facility] WITH [id number] 11:05:58 Test Item Value Reference Range Interpretation [...] RDW-SD (test code = 47.5 fL 38.5-51.6 69947-4) RDW-CV (test code = 14.0 % 12.1-15.4 788-0) PLT (test code = See_Comment [Automated 777-3) message] The sy stem which generated this result transmitted reference range : 150 - 328 10*3/ ?L. The reference r meredith was not used to interpret this result as normal/abnormal . MPV (test code = 9.5 fL 9.8-13.0 L 08795-8) NRBC/100 WBC (test See_Comment [Automat ed code = 2161994518) message] The system which generated this result transmitted reference range : 0.0 - 10.0 /100 WBCs. The refer ence range was not u sed to interpret th is result as normal/abnormal . NRBC x10^3 (test code <0.01 See_Comment [Auto mated = 1986420945) message] The s ystem which generated this result transmitted reference range : 10*3/?L. The reference range was not used to interpret this result as normal/abnormal . GRAN MAT (NEUT) % 52.5 % (test code = 770-8) IMM GRAN % (test code 0.30 % = 4581743366) LYMPH % (test code = 31.1 % 736-9) MONO % (test code = 11.7 % 5905-5) EOS % (test code = 3.9 % 713-8) BASO % (test code = 0.5 % 706-2) GRAN MAT x10^3(ANC) 2.03 10*3/uL 1.99-6.95 (test code = 8890425416) IMM GRAN x10^3 (test <0.03 0.00-0.06 code = 3303099831) LYMPH x10^3 (test code 1.20 10*3/uL 1.09-3.23 = 731-0) MONO x10^3 (test code 0.45 10*3/uL 0.36-1.02 = 742-7) EOS x10^3 (test code = 0.15 10*3/uL 0.06-0.53 711-2) BASO x10^3 (test code <0.03 0.01-0.09 = 704-7) Lab Interpretation Abnormal (test code = 12464-4) [facility] WITH [id number] 12:30:17 Test Item Value Reference Range Interpretation [...] RDW-SD (test code = 49.2 fL 38.5-51.6 20934-4) RDW-CV (test code = 14.3 % 12.1-15.4 788-0) PLT (test code = See_Comment [Automated 777-3) message] The sy stem which generated this result transmitted reference range : 150 - 328 10*3/ ?L. The reference r meredith was not used to interpret this result as normal/abnormal . MPV (test code = 9.2 fL 9.8-13.0 L 38528-3) NRBC/100 WBC (test See_Comment [Automat ed code = 3820659258) message] The system which generated this result transmitted reference range : 0.0 - 10.0 /100 WBCs. The refer ence range was not u sed to interpret th is result as normal/abnormal . NRBC x10^3 (test code <0.01 See_Comment [Auto mated = 7305686961) message] The s ystem which generated this result transmitted reference range : 10*3/?L. The reference range was not used to interpret this result as normal/abnormal . GRAN MAT (NEUT) % 47.2 % (test code = 770-8) IMM GRAN % (test code 0.30 % = 2519340014) LYMPH % (test code = 36.0 % 736-9) MONO % (test code = 12.6 % 5905-5) EOS % (test code = 3.4 % 713-8) BASO % (test code = 0.5 % 706-2) GRAN MAT x10^3(ANC) 1.80 10*3/uL 1.99-6.95 L (test code = 1133701680) IMM GRAN x10^3 (test <0.03 0.00-0.06 code = 5915558076) LYMPH x10^3 (test code 1.37 10*3/uL 1.09-3.23 = 731-0) MONO x10^3 (test code 0.48 10*3/uL 0.36-1.02 = 742-7) EOS x10^3 (test code = 0.13 10*3/uL 0.06-0.53 711-2) BASO x10^3 (test code <0.03 0.01-0.09 = 704-7) Lab Interpretation Abnormal (test code = 86302-4) [facility] METABOLIC PANEL (NA, K, CL, CO2, GLUCOSE, BUN, CREATININE, CA)2021-08-04 12:17:48 Test Item Value Reference Range Interpretation Comments NA (test code = 139 mmol/L 135-145 1883001234) K (test code = 4.3 mmol/L 3.5-5.0 0038765294) CL (test code = 110 mmol/L 98-108 H 3869591763) CO2 TOTAL (test code = 26 mmol/L 23-31 7157963905) AGAP (test code = 2-16 3988851385) BUN (test code = 8 mg/dL 7-23 9299247497) GLUCOSE (test code = 87 mg/dL 70-110 4270689752) CREATININE (test code = 1.50 mg/dL 0.60-1.25 H 4109538508) CALCIUM (test code = 8.4 mg/dL 8.6-10.6 L 4113283456) eGFR (test code = mL/min/1.73m2 8129277094) GILBERTO (test code = GILBERTO) Association of [...] tests). Lab Interpretation Abnormal (test code = 59869-8) [facility] 12:17:48 Test Item Value Reference Range Interpretation Comments MAGNESIUM (test code = 4520642780) 1.9 mg/dL 1.7-2.4 Lab Interpretation (test code = Normal 90752-2) [facility] 12:17:48 Test Item Value Reference Range Interpretation Comments PHOSPHORUS (test code = 6554648758) 4.6 mg/dL 2.5-5.0 Lab Interpretation (test code = Normal 31917-9) [facility] WITH [id number] 11:23:38 Test Item Value Reference Range Interpretation [...] RDW-SD (test code = 47.8 fL 38.5-51.6 51596-4) RDW-CV (test code = 14.1 % 12.1-15.4 788-0) PLT (test code = See_Comment [Automated 777-3) message] The sy stem which generated this result transmitted reference range : 150 - 328 10*3/ ?L. The reference r meredith was not used to interpret this result as normal/abnormal . MPV (test code = 9.3 fL 9.8-13.0 L 51147-5) NRBC/100 WBC (test See_Comment [Automat ed code = 9065226347) message] The system which generated this result transmitted reference range : 0.0 - 10.0 /100 WBCs. The refer ence range was not u sed to interpret th is result as normal/abnormal . NRBC x10^3 (test code <0.01 See_Comment [Auto mated = 2391247053) message] The s ystem which generated this result transmitted reference range : 10*3/?L. The reference range was not used to interpret this result as normal/abnormal . GRAN MAT (NEUT) % 49.3 % (test code = 770-8) IMM GRAN % (test code 0.30 % = 9283309657) LYMPH % (test code = 34.6 % 736-9) MONO % (test code = 12.0 % 5905-5) EOS % (test code = 3.3 % 713-8) BASO % (test code = 0.5 % 706-2) GRAN MAT x10^3(ANC) 1.97 10*3/uL 1.99-6.95 L (test code = 2311716001) IMM GRAN x10^3 (test <0.03 0.00-0.06 code = 2940565756) LYMPH x10^3 (test code 1.38 10*3/uL 1.09-3.23 = 731-0) MONO x10^3 (test code 0.48 10*3/uL 0.36-1.02 = 742-7) EOS x10^3 (test code = 0.13 10*3/uL 0.06-0.53 711-2) BASO x10^3 (test code <0.03 0.01-0.09 = 704-7) Lab Interpretation Abnormal (test code = 81376-0) [facility] METABOLIC PANEL (NA, K, CL, CO2, GLUCOSE, BUN, CREATININE, CA)2021-08-03 11:18:55 Test Item Value Reference Range Interpretation Comments NA (test code = 139 mmol/L 135-145 3372738074) K (test code = 4.1 mmol/L 3.5-5.0 8195315860) CL (test code = 110 mmol/L 98-108 H 8904605669) CO2 TOTAL (test code = 27 mmol/L 23-31 6545543441) AGAP (test code = 2-16 8716839766) BUN (test code = 8 mg/dL 7-23 0146113602) GLUCOSE (test code = 93 mg/dL 70-110 3082495668) CREATININE (test code = 1.39 mg/dL 0.60-1.25 H 3591829331) CALCIUM (test code = 8.1 mg/dL 8.6-10.6 L 5238071509) eGFR (test code = mL/min/1.73m2 3795857220) GILBERTO (test code = GILBERTO) Association of [...] tests). Lab Interpretation Abnormal (test code = 36836-1) [facility] 11:18:55 Test Item Value Reference Range Interpretation Comments MAGNESIUM (test code = 3690293533) 2.0 mg/dL 1.7-2.4 Lab Interpretation (test code = Normal 49127-8) [facility] 11:18:55 Test Item Value Reference Range Interpretation Comments PHOSPHORUS (test code = 2683238284) 3.8 mg/dL 2.5-5.0 Lab Interpretation (test code = Normal 86619-7) [facility] (NA, K, CL, CO2, GLUCOSE, BUN, CREATININE, CA)2021-08-02 14:06:51 Test Item Value Reference Range Interpretation Comments NA (test code = 137 mmol/L 135-145 8986382577) K (test code = 4.4 mmol/L 3.5-5.0 6521325208) CL (test code = 108 mmol/L 98-108 8295774576) CO2 TOTAL (test code = 24 mmol/L 23-31 4020409057) AGAP (test code = 2-16 1308804467) BUN (test code = 10 mg/dL 7-23 8995865183) GLUCOSE (test code = 83 mg/dL 70-110 4876491345) CREATININE (test code = 1.48 mg/dL 0.60-1.25 H 2167233460) CALCIUM (test code = 8.4 mg/dL 8.6-10.6 L 1438101882) eGFR (test code = mL/min/1.73m2 9977467860) GILBERTO (test code = GILBERTO) Association of [...] tests). Lab Interpretation Abnormal (test code = 15767-0) [facility] 14:[facility]:51 Test Item Value Reference Range Interpretation Comments MAGNESIUM (test code = 2615905258) 2.1 mg/dL 1.7-2.4 Lab Interpretation (test code = Normal 12199-1) [facility] 14:06:51 Test Item Value Reference Range Interpretation Comments PHOSPHORUS (test code = 5233349050) 4.6 mg/dL 2.5-5.0 Lab Interpretation (test code = Normal 38053-8) [facility] [id number] 12:30:05 Test Item Value Reference Range Interpretation [...] RDW-SD (test code = 48.6 fL 38.5-51.6 07402-2) RDW-CV (test code = 14.3 % 12.1-15.4 788-0) PLT (test code = See_Comment [Automated 777-3) message] The sy stem which generated this result transmitted reference range : 150 - 328 10*3/ ?L. The reference r meredith was not used to interpret this result as normal/abnormal . MPV (test code = 10.0 fL 9.8-13.0 64526-9) NRBC/100 WBC (test See_Comment [Automat ed code = 1421616437) message] The system which generated this result transmitted reference range : 0.0 - 10.0 /100 WBCs. The refer ence range was not u sed to interpret th is result as normal/abnormal . NRBC x10^3 (test code <0.01 See_Comment [Auto mated = 0170449687) message] The s ystem which generated this result transmitted reference range : 10*3/?L. The reference range was not used to interpret this result as normal/abnormal . GRAN MAT (NEUT) % 51.9 % (test code = 770-8) IMM GRAN % (test code 0.60 % = 1005156174) LYMPH % (test code = 32.7 % 736-9) MONO % (test code = 11.3 % 5905-5) EOS % (test code = 3.2 % 713-8) BASO % (test code = 0.3 % 706-2) GRAN MAT x10^3(ANC) 1.80 10*3/uL 1.99-6.95 L (test code = 4075092420) IMM GRAN x10^3 (test <0.03 0.00-0.06 code = 0167473030) LYMPH x10^3 (test code 1.13 10*3/uL 1.09-3.23 = 731-0) MONO x10^3 (test code 0.39 10*3/uL 0.36-1.02 = 742-7) EOS x10^3 (test code = 0.11 10*3/uL 0.06-0.53 711-2) BASO x10^3 (test code <0.03 0.01-0.09 = 704-7) Lab Interpretation Abnormal (test code = 68009-1) [facility] WITH [id number] 10:44:18 Test Item Value Reference Range Interpretation Comments WBC (test code = See_Comment L [Automated 5090-2) message] The sy stem which [...] RDW-SD (test code = 48.0 fL 38.5-51.6 36916-9) RDW-CV (test code = 14.1 % 12.1-15.4 788-0) PLT (test code = See_Comment [Automated 777-3) message] The sy stem which generated this result transmitted reference range : 150 - 328 10*3/ ?L. The reference r meredith was not used to interpret this result as normal/abnormal . MPV (test code = 9.5 fL 9.8-13.0 L 82100-2) NRBC/100 WBC (test See_Comment [Automat ed code = 9219693027) message] The system which generated this result transmitted reference range : 0.0 - 10.0 /100 WBCs. The refer ence range was not u sed to interpret th is result as normal/abnormal . NRBC x10^3 (test code <0.01 See_Comment [Auto mated = 1530632570) message] The s ystem which generated this result transmitted reference range : 10*3/?L. The reference range was not used to interpret this result as normal/abnormal . GRAN MAT (NEUT) % 50.8 % (test code = 770-8) IMM GRAN % (test code 0.30 % = 1260661562) LYMPH % (test code = 34.6 % 736-9) MONO % (test code = 10.3 % 5905-5) EOS % (test code = 3.7 % 713-8) BASO % (test code = 0.3 % 706-2) GRAN MAT x10^3(ANC) 1.78 10*3/uL 1.99-6.95 L (test code = 7560536125) IMM GRAN x10^3 (test <0.03 0.00-0.06 code = 1569332763) LYMPH x10^3 (test code 1.21 10*3/uL 1.09-3.23 = 731-0) MONO x10^3 (test code 0.36 10*3/uL 0.36-1.02 = 742-7) EOS x10^3 (test code = 0.13 10*3/uL 0.06-0.53 711-2) BASO x10^3 (test code <0.03 0.01-0.09 = 704-7) Lab Interpretation Abnormal (test code = 80565-9) [facility] METABOLIC PANEL (NA, K, CL, CO2, GLUCOSE, BUN, CREATININE, CA)2021-08-01 10:25:17 Test Item Value Reference Range Interpretation Comments NA (test code = 138 mmol/L 135-145 8419965047) K (test code = 4.1 mmol/L 3.5-5.0 3262308153) CL (test code = 105 mmol/L 98-108 4520545409) CO2 TOTAL (test code = 28 mmol/L 23-31 0059884196) AGAP (test code = 2-16 3646717721) BUN (test code = 13 mg/dL 7-23 5146920696) GLUCOSE (test code = 86 mg/dL 70-110 9051826243) CREATININE (test code = 1.46 mg/dL 0.60-1.25 H 2648636632) CALCIUM (test code = 8.7 mg/dL 8.6-10.6 3539818058) eGFR (test code = mL/min/1.73m2 8437642018) GILBERTO (test code = GILBERTO) Association of [...] tests). Lab Interpretation Abnormal (test code = 61559-5) [facility] 10:25:17 Test Item Value Reference Range Interpretation Comments MAGNESIUM (test code = 4211723620) 1.6 mg/dL 1.7-2.4 L Lab Interpretation (test code = Abnormal 78848-2) [facility] 10:25:17 Test Item Value Reference Range Interpretation Comments PHOSPHORUS (test code = 9757159586) 4.1 mg/dL 2.5-5.0 Lab Interpretation (test code = Normal 62593-8) [facility] 16:18:34 Test Item Value Reference Range Interpretation Comments PALB (test code = 68162-8) 24.3 mg/dL 18.0-45.0 Lab Interpretation (test code = Normal 97236-2) [facility] [id number] 11:20:19 Test Item Value Reference Range Interpretation [...] RDW-SD (test code = 49.6 fL 38.5-51.6 11388-9) RDW-CV (test code = 14.6 % 12.1-15.4 788-0) PLT (test code = See_Comment [Automated 777-3) message] The sy stem which generated this result transmitted reference range : 150 - 328 10*3/ ?L. The reference r meredith was not used to interpret this result as normal/abnormal . MPV (test code = 9.6 fL 9.8-13.0 L 34287-2) NRBC/100 WBC (test See_Comment [Automat ed code = 8211746532) message] The system which generated this result transmitted reference range : 0.0 - 10.0 /100 WBCs. The refer ence range was not u sed to interpret th is result as normal/abnormal . NRBC x10^3 (test code <0.01 See_Comment [Auto mated = 7388786710) message] The s ystem which generated this result transmitted reference range : 10*3/?L. The reference range was not used to interpret this result as normal/abnormal . GRAN MAT (NEUT) % 49.1 % (test code = 770-8) IMM GRAN % (test code 0.30 % = 5697260357) LYMPH % (test code = 36.0 % 736-9) MONO % (test code = 10.6 % 5905-5) EOS % (test code = 3.4 % 713-8) BASO % (test code = 0.6 % 706-2) GRAN MAT x10^3(ANC) 1.76 10*3/uL 1.99-6.95 L (test code = 6384153366) IMM GRAN x10^3 (test <0.03 0.00-0.06 code = 3965738120) LYMPH x10^3 (test code 1.29 10*3/uL 1.09-3.23 = 731-0) MONO x10^3 (test code 0.38 10*3/uL 0.36-1.02 = 742-7) EOS x10^3 (test code = 0.12 10*3/uL 0.06-0.53 711-2) BASO x10^3 (test code <0.03 0.01-0.09 = 704-7) Lab Interpretation Abnormal (test code = 39399-0) [facility] METABOLIC PANEL (NA, K, CL, CO2, GLUCOSE, BUN, CREATININE, CA)2021-07-31 11:11:17 Test Item Value Reference Range Interpretation Comments NA (test code = 135 mmol/L 135-145 7118245765) K (test code = 3.8 mmol/L 3.5-5.0 6310533078) CL (test code = 108 mmol/L 98-108 7299563085) CO2 TOTAL (test code = 24 mmol/L 23-31 1279752534) AGAP (test code = 2-16 9368330215) BUN (test code = 13 mg/dL 7-23 4451331416) GLUCOSE (test code = 88 mg/dL 70-110 2404768290) CREATININE (test code = 1.32 mg/dL 0.60-1.25 H 3031591563) CALCIUM (test code = 8.4 mg/dL 8.6-10.6 L 9157280140) eGFR (test code = mL/min/1.73m2 8748008497) GILBERTO (test code = GILBERTO) Association of [...] tests). Lab Interpretation Abnormal (test code = 45495-7) [facility] 11:11:17 Test Item Value Reference Range Interpretation Comments MAGNESIUM (test code = 7674631658) 1.8 mg/dL 1.7-2.4 Lab Interpretation (test code = Normal 21829-4) [facility] 11:11:17 Test Item Value Reference Range Interpretation Comments PHOSPHORUS (test code = 7263293982) 4.0 mg/dL 2.5-5.0 Lab Interpretation (test code = Normal 55152-6) [facility] (59745)2021-07-30 03:46:32 Test Item Value Reference Range Interpretation Comments NA (test code = 132 mmol/L 135-145 L 5445509400) K (test code = 4.4 mmol/L 3.5-5.0 2349029076) CL (test code = 102 mmol/L 98-108 6583929652) CO2 TOTAL (test code = 24 mmol/L 23-31 3955987611) AGAP (test code = 2-16 6972281807) BUN (test code = 21 mg/dL 7-23 9483121018) GLUCOSE (test code = 95 mg/dL 70-110 0467931708) CREATININE (test code = 1.76 mg/dL 0.60-1.25 H 4293829354) TOTAL BILI (test code = 0.7 mg/dL 0.1-1.4 6076936217) CALCIUM (test code = 8.8 mg/dL 8.6-10.6 4246067382) T PROTEIN (test code = 6.0 g/dL 6.3-8.2 L 3979370190) ALBUMIN (test code = 3.8 g/dL 3.5-5.0 3439003918) ALK PHOS (test code = 67 U/L 34-122 1077025443) ALTv (test code = 47 U/L 5-50 1742-6) AST(SGOT) (test code = 39 U/L 13-40 8356277762) eGFR (test code = mL/min/1.73m2 7887632504) GILBERTO (test code = GILBERTO) Association of [...] tests). Lab Interpretation Abnormal (test code = 02853-7) [facility] 03:19:26 Test Item Value Reference Range Interpretation Comments LIPASE (test code = 2934897620) 58 U/L 0-220 Lab Interpretation (test code = Normal 89893-0) [facility] [id number] 03:07:20 Test Item Value Reference Range Interpretation [...] RDW-SD (test code = 47.4 fL 38.5-51.6 94840-0) RDW-CV (test code = 14.2 % 12.1-15.4 788-0) PLT (test code = See_Comment [Automated 777-3) message] The sy stem which generated this result transmitted reference range : 150 - 328 10*3/ ?L. The reference r meredith was not used to interpret this result as normal/abnormal . MPV (test code = 9.9 fL 9.8-13.0 82548-5) NRBC/100 WBC (test See_Comment [Automat ed code = [id number]) message] The system which generated this result transmitted reference range : 0.0 - 10.0 /100 WBCs. The refer ence range was not u sed to interpret th is result as normal/abnormal . NRBC x10^3 (test code <0.01 See_Comment [Auto mated = [id number]) message] The s ystem which generated this result transmitted reference range : 10*3/?L. The reference range was not used to interpret this result as normal/abnormal . GRAN MAT (NEUT) % 61.1 % (test code = 770-8) IMM GRAN % (test code 0.20 % = [id number]) LYMPH % (test code = 24.4 % 736-9) MONO % (test code = 11.8 % 5905-5) EOS % (test code = 2.2 % 713-8) BASO % (test code = 0.3 % 706-2) GRAN MAT x10^3(ANC) 3.98 10*3/uL 1.99-6.95 (test code = [id number]) IMM GRAN x10^3 (test <0.03 0.00-0.06 code = 9610296072) LYMPH x10^3 (test code 1.59 10*3/uL 1.09-3.23 = 731-0) MONO x10^3 (test code 0.77 10*3/uL 0.36-1.02 = 742-7) EOS x10^3 (test code = 0.14 10*3/uL 0.06-0.53 711-2) BASO x10^3 (test code <0.03 0.01-0.09 = 704-7) Lab Interpretation Abnormal (test code = 71969-5) [facility] [id number] 03:00:47 Test Item Value Reference Range Interpretation Comments LACTIC ACID (test code = 1.45 mmol/L 0.50-2.20 QUE S [id number]) Lab Interpretation (test code = Normal 56606-5) [facility] [id number] 11:51:00 Test Item Value Reference Range Interpretation [...] Units/L 50.0-136.0 N code = ALKP) PROTHROMBIN [id number] 11:41:00 Test Item Value Reference Range Interpretation Comments PROTHROMBIN TIME 10.9 SECONDS 9.9-12.8 N PATIENT (test code = PTP) INTERNATIONAL NORMAL 0.9 0.89-1.14 N THE INR IS TO BE USED RATIO (test code = ONLY FOR MONITORING INR) ORAL ANTICOAGULANTTH ERAPY. THE FOLLOWING A RE SUGGESTED RANGE S [facility] LEGE OF CHEST PHYSICIANS:ROOPA CATION INR [...] D ANTIBODIES 2.5 - 3.5 CBC W/AUTO [id number] 11:36:00 Test Item Value Reference Range Interpretation [...] NA (test code = 137 mmol/L 135-145 [id number]) K (test code = 4.2 mmol/L 3.5-5.0 [id number]) CL (test code = 109 mmol/L 98-108 H 7517655148) CO2 TOTAL (test code = 25 mmol/L 23-31 8453340714) AGAP (test code = 2-16 8726476958) BUN (test code = 11 mg/dL 7-23 6044782022) GLUCOSE (test code = 83 mg/dL 70-110 6162723042) CREATININE (test code = 1.40 mg/dL 0.60-1.25 H 6927690421) CALCIUM (test code = 8.6 mg/dL 8.6-10.6 8597390532) eGFR (test code = mL/min/1.73m2 8599581722) GILBERTO (test code = GILBERTO) Association of [...] tests). Lab Interpretation Abnormal (test code = 36783-8) [facility]15:26 Test Item Value Reference Range Interpretation Comments MAGNESIUM (test code = 7229835921) 1.6 mg/dL 1.7-2.4 L Lab Interpretation (test code = Abnormal 43271-8) [facility] 13:15:26 Test Item Value Reference Range Interpretation Comments PHOSPHORUS (test code = 0044487783) 3.5 mg/dL 2.5-5.0 Lab Interpretation (test code = Normal 43895-4) [facility] [id number] 12:50:41 Test Item Value Reference Range Interpretation Comments WBC (test code = See_Comment [Automated 7143-2) message] The sy stem which generated this result transmitted reference range : 4.20 - 10.70 10*3/?L. The reference range was not used to interpret this result as normal/abnormal . RBC (test code = See_Comment L [Automated 431-8) message] The sy stem which generated this [...] RDW-SD (test code = 46.7 fL 38.5-51.6 19790-2) RDW-CV (test code = 14.3 % 12.1-15.4 788-0) PLT (test code = See_Comment [Automated 777-3) message] The sy stem which generated this result transmitted reference range : 150 - 328 10*3/ ?L. The reference r meredith was not used to interpret this result as normal/abnormal . MPV (test code = 9.6 fL 9.8-13.0 L 65398-6) NRBC/100 WBC (test See_Comment [Automat ed code = 1571081699) message] The system which generated this result transmitted reference range : 0.0 - 10.0 /100 WBCs. The refer ence range was not u sed to interpret th is result as normal/abnormal . NRBC x10^3 (test code <0.01 See_Comment [Auto mated = 3275843959) message] The s ystem which generated this result transmitted reference range : 10*3/?L. The reference range was not used to interpret this result as normal/abnormal . GRAN MAT (NEUT) % 52.7 % (test code = 770-8) IMM GRAN % (test code 0.40 % = 4220291169) LYMPH % (test code = 33.7 % 736-9) MONO % (test code = 10.4 % 5905-5) EOS % (test code = 2.4 % 713-8) BASO % (test code = 0.4 % 706-2) GRAN MAT x10^3(ANC) 2.65 10*3/uL 1.99-6.95 (test code = 3540063723) IMM GRAN x10^3 (test <0.03 0.00-0.06 code = 1058024532) LYMPH x10^3 (test code 1.69 10*3/uL 1.09-3.23 = 731-0) MONO x10^3 (test code 0.52 10*3/uL 0.36-1.02 = 742-7) EOS x10^3 (test code = 0.12 10*3/uL 0.06-0.53 711-2) BASO x10^3 (test code <0.03 0.01-0.09 = 704-7) Lab Interpretation Abnormal (test code = 76306-1) [facility] 12:35:59 Test Item Value Reference Range Interpretation Comments MAGNESIUM (test code = 3423605182) 1.6 mg/dL 1.7-2.4 L Lab Interpretation (test code = Abnormal 58360-7) [facility] 12:35:59 Test Item Value Reference Range Interpretation Comments PHOSPHORUS (test code = 5142789669) 4.0 mg/dL 2.5-5.0 Lab Interpretation (test code = Normal 92746-8) [facility] (NA, K, CL, CO2, GLUCOSE, BUN, CREATININE, CA)2021-07-25 12:09:12 Test Item Value Reference Range Interpretation Comments NA (test code = 139 mmol/L 135-145 6106839645) K (test code = 4.1 mmol/L 3.5-5.0 7354251601) CL (test code = 111 mmol/L 98-108 H 6563598016) CO2 TOTAL (test code = 25 mmol/L 23-31 8455114654) AGAP (test code = 2-16 3977413839) BUN (test code = 13 mg/dL 7-23 2329105235) GLUCOSE (test code = 86 mg/dL 70-110 3271761861) CREATININE (test code = 1.43 mg/dL 0.60-1.25 H 8470426591) CALCIUM (test code = 8.4 mg/dL 8.6-10.6 L 6106409680) eGFR (test code = mL/min/1.73m2 6406453935) GILBERTO (test code = GILBERTO) Association of [...] tests). Lab Interpretation Abnormal (test code = 58886-6) [facility] WITH [id number] 11:44:33 Test Item Value Reference Range Interpretation Comments WBC (test code = See_Comment [Automated 7389-2) message] The sy stem which generated this [...] RDW-SD (test code = 48.9 fL 38.5-51.6 23651-1) RDW-CV (test code = 14.3 % 12.1-15.4 788-0) PLT (test code = See_Comment [Automated 777-3) message] The sy stem which generated this result transmitted reference range : 150 - 328 10*3/ ?L. The reference r meredith was not used to interpret this result as normal/abnormal . MPV (test code = 9.6 fL 9.8-13.0 L 72031-2) NRBC/100 WBC (test See_Comment [Automat ed code = 8823585141) message] The system which generated this result transmitted reference range : 0.0 - 10.0 /100 WBCs. The refer ence range was not u sed to interpret th is result as normal/abnormal . NRBC x10^3 (test code <0.01 See_Comment [Auto mated = 8202075685) message] The s ystem which generated this result transmitted reference range : 10*3/?L. The reference range was not used to interpret this result as normal/abnormal . GRAN MAT (NEUT) % 50.0 % (test code = 770-8) IMM GRAN % (test code 0.20 % = 9706669153) LYMPH % (test code = 36.7 % 736-9) MONO % (test code = 10.0 % 5905-5) EOS % (test code = 2.6 % 713-8) BASO % (test code = 0.5 % 706-2) GRAN MAT x10^3(ANC) 2.11 10*3/uL 1.99-6.95 (test code = 9733700987) IMM GRAN x10^3 (test <0.03 0.00-0.06 code = 0293210555) LYMPH x10^3 (test code 1.55 10*3/uL 1.09-3.23 = 731-0) MONO x10^3 (test code 0.42 10*3/uL 0.36-1.02 = 742-7) EOS x10^3 (test code = 0.11 10*3/uL 0.06-0.53 711-2) BASO x10^3 (test code <0.03 0.01-0.09 = 704-7) Lab Interpretation Abnormal (test code = 66865-9) [facility] WITH [id number] 04:23:56 Test Item Value Reference Range Interpretation [...] RDW-SD (test code = 49.0 fL 38.5-51.6 79504-7) RDW-CV (test code = 14.4 % 12.1-15.4 788-0) PLT (test code = See_Comment [Automated 777-3) message] The sy stem which generated this result transmitted reference range : 150 - 328 10*3/ ?L. The reference r meredith was not used to interpret this result as normal/abnormal . MPV (test code = 9.5 fL 9.8-13.0 L 37852-6) NRBC/100 WBC (test See_Comment [Automat ed code = 1578060017) message] The system which generated this result transmitted reference range : 0.0 - 10.0 /100 WBCs. The refer ence range was not u sed to interpret th is result as normal/abnormal . NRBC x10^3 (test code <0.01 See_Comment [Auto mated = 7427474749) message] The s ystem which generated this result transmitted reference range : 10*3/?L. The reference range was not used to interpret this result as normal/abnormal . GRAN MAT (NEUT) % 49.9 % (test code = 770-8) IMM GRAN % (test code 0.20 % = 5646537633) LYMPH % (test code = 35.2 % 736-9) MONO % (test code = 11.7 % 5905-5) EOS % (test code = 2.4 % 713-8) BASO % (test code = 0.6 % 706-2) GRAN MAT x10^3(ANC) 2.31 10*3/uL 1.99-6.95 (test code = 0071171801) IMM GRAN x10^3 (test <0.03 0.00-0.06 code = 6321944998) LYMPH x10^3 (test code 1.63 10*3/uL 1.09-3.23 = 731-0) MONO x10^3 (test code 0.54 10*3/uL 0.36-1.02 = 742-7) EOS x10^3 (test code = 0.11 10*3/uL 0.06-0.53 711-2) BASO x10^3 (test code 0.03 10*3/uL 0.01-0.09 = 704-7) Lab Interpretation Abnormal (test code = 55832-0) [facility] (NA, K, CL, CO2, GLUCOSE, BUN, CREATININE, CA)2021-07-24 12:55:24 Test Item Value Reference Range Interpretation Comments NA (test code = 135 mmol/L 135-145 6867881622) K (test code = 4.0 mmol/L 3.5-5.0 7230782248) CL (test code = 109 mmol/L 98-108 H 6657030328) CO2 TOTAL (test code = 22 mmol/L 23-31 L 4403769385) AGAP (test code = 2-16 2903201398) BUN (test code = 12 mg/dL 7-23 2298341858) GLUCOSE (test code = 102 mg/dL 70-110 0743259002) CREATININE (test code = 1.27 mg/dL 0.60-1.25 H 4493674821) CALCIUM (test code = 8.6 mg/dL 8.6-10.6 1412928295) eGFR (test code = mL/min/1.73m2 9608485729) GILBERTO (test code = GILBERTO) Association of [...] tests). Lab Interpretation Abnormal (test code = 42222-3) [facility] 12:55:24 Test Item Value Reference Range Interpretation Comments MAGNESIUM (test code = 2560255511) 1.7 mg/dL 1.7-2.4 Lab Interpretation (test code = Normal 11397-2) [facility] 12:[facility]24 Test Item Value Reference Range Interpretation Comments PHOSPHORUS (test code = 5620208650) 3.1 mg/dL 2.5-5.0 Lab Interpretation (test code = Normal 70823-2) [facility] (NA, K, CL, CO2, Glucose, BUN, Creatinine, CA)2021-07-23 13:27:55 Test Item Value Reference Range Interpretation Comments NA (test code = 134 mmol/L 135-145 L 8302116495) K (test code = 3.8 mmol/L 3.5-5.0 5802165998) CL (test code = 107 mmol/L 98-108 1849714362) CO2 TOTAL (test code = 21 mmol/L 23-31 L 0610792646) AGAP (test code = 2-16 7839844187) BUN (test code = 18 mg/dL 7-23 5601904712) GLUCOSE (test code = 120 mg/dL 70-110 H 8985819609) CREATININE (test code = 1.46 mg/dL 0.60-1.25 H 2279852090) CALCIUM (test code = 8.7 mg/dL 8.6-10.6 4105136366) eGFR (test code = mL/min/1.73m2 5829480902) GILBERTO (test code = GILBERTO) Association of [...] tests). Lab Interpretation Abnormal (test code = 97171-1) [facility] 13:27:55 Test Item Value Reference Range Interpretation Comments MAGNESIUM (test code = 0942531630) 1.9 mg/dL 1.7-2.4 Lab Interpretation (test code = Normal 17360-3) [facility] 13:27:55 Test Item Value Reference Range Interpretation Comments PHOSPHORUS (test code = 2246904492) 3.5 mg/dL 2.5-5.0 Lab Interpretation (test code = Normal 85293-4) [facility] Cdqkktcebbho9225-22-40 13:06:55 Test Item Value Reference Range Interpretation [...] RDW-SD (test code = 47.8 fL 38.5-51.6 24195-4) RDW-CV (test code = 14.4 % 12.1-15.4 788-0) PLT (test code = See_Comment [Automated 777-3) message] The sy stem which generated this result transmitted reference range : 150 - 328 10*3/ ?L. The reference r meredith was not used to interpret this result as normal/abnormal . MPV (test code = 9.4 fL 9.8-13.0 L 93558-5) NRBC/100 WBC (test See_Comment [Automat ed code = 4360136078) message] The system which generated this result transmitted reference range : 0.0 - 10.0 /100 WBCs. The refer ence range was not u sed to interpret th is result as normal/abnormal . NRBC x10^3 (test code <0.01 See_Comment [Auto mated = 7317295266) message] The s ystem which generated this result transmitted reference range : 10*3/?L. The reference range was not used to interpret this result as normal/abnormal . GRAN MAT (NEUT) % 54.7 % (test code = 770-8) IMM GRAN % (test code 0.40 % = 8330030762) LYMPH % (test code = 33.3 % 736-9) MONO % (test code = 9.4 % 5905-5) EOS % (test code = 1.8 % 713-8) BASO % (test code = 0.4 % 706-2) GRAN MAT x10^3(ANC) 2.78 10*3/uL 1.99-6.95 (test code = 1856758182) IMM GRAN x10^3 (test <0.03 0.00-0.06 code = 1636105295) LYMPH x10^3 (test code 1.69 10*3/uL 1.09-3.23 = 731-0) MONO x10^3 (test code 0.48 10*3/uL 0.36-1.02 = 742-7) EOS x10^3 (test code = 0.09 10*3/uL 0.06-0.53 711-2) BASO x10^3 (test code <0.03 0.01-0.09 = 704-7) Lab Interpretation Abnormal (test code = 62655-9) [facility] [id number] 09:48:00 Test Item Value Reference Range Interpretation [...] = MX#) 0.8 k/mm3 0.1-0.8 N GLUCOSE [id number] 06:12:00 Test Item Value Reference Range Interpretation Comments GLUCOSE BEDSIDE (test 129 MG/DL 70-110 H Perfor med by certified code = 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) 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 [facility] BASIC METABOLIC [id number] 05:21:00 Test Item Value Reference Range Interpretation [...] (test code = POCGLU) 92 MG/DL GLUCOSE [id number] 05:19:00 Test Item Value Reference Range Interpretation Comments GLUCOSE BEDSIDE (test 51 MG/DL 70-110 L Perfor med by certified 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 = 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) 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 [facility] CBC W/AUTO [id number] 14:00:00 Test Item Value Reference Range Interpretation [...] MX#) 0.2 k/mm3 0.1-0.8 N CBC W/AUTO [id number] 00:07:00 Test Item Value Reference Range Interpretation [...] = LY#) 2.4 K/uL 1.0-3.8 N LIVER [id number] 16:14:00 Test Item Value Reference Range Interpretation Comments TOTAL PROTEIN (test code 7.5 GM/DL 5.0-8.0 N Per formed by = PROT) 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 [facility] ALBUMIN (test code = 3.9 [...] 65 UNITS/L 25-125 N LYNDSEY) BASIC METABOLIC [id number] 16:07:00 Test Item Value Reference Range Interpretation [...] POCGLU) 96 MG/DL - XR CHEST 1 [id number] 00:00:00 [facility] : 1970 Sex: M FAX: Sabi Urias MD [phone] Joes: NM St: PRE Name: JOSEPH,DORA Erazo FSED : 1970 Age/S: 51/M [address] [facility] Unit #: [id number] Loc: [place] [address] Phys: Sabi Urias MD Acct: [id number] Dis Date: Status: PRE ER PHONE #: Exam Date: 06/27/2021 7052 FAX #: Reason: Abdominal Pain EXAMS: CPT CODE: [id number] XR CHEST 1 V 70424 PROCEDURE INFORMATION: Exam: XR Chest Exam date [...] By: [email or web address] Orig Print D/T: S: 06/27/2021 (1556)PAGE 1 Signed Report- CT ABD PELVIS [id number] 00:00:00 [facility]: DORA JOSEPH : 1970 Sex: MName: DORA JOSEPH FSED : 1970 Age/S: 51 / M [address] [facility] Unit #: [id number] Loc: [place] [address] Phys: Sabi Urias MD Acct: [id number] Dis Date: Status: REG ER PHONE #: Exam Date: 06/27/2021 9194 FAX #: Reason: pain in region of colostomy EXAMS: CPT CODE: [id number] CT ABD PELVIS W/CONT 71066 PROCEDURE INFORMATION: Exam: CT Abdomen And Pelvis [...] : 1970 Age/S: 51 / M [address] [facility] Unit #: [id number] Loc: [place] [address] Phys: Sabi Urias MD Acct: [id number] Dis Date: Status: REG ER PHONE #: Exam Date: 06/27/2021 1625 FAX #: Reason: pain in region of colostomy EXAMS: CPT CODE: [id number] CT ABD PELVIS W/CONT 46344 <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 There is no evidence of associated intestinal obstruction. 2. No additional acute CT abnormalities of the abdomen or pelvis are identified. SL:131 at 1650 Reported and signed by: Marco Raman M.D. CC: Sabi Urias MD Technologist:RT Alanna(R)(CT) CTDI: DLP: Trnscb Date/Time: 06/27/2021 (1649) t.SDR.DMM Orig Print D/T: S: 06/27/2021 (1649) PAGE 2 Signed ReportBASIC METABOLIC PANEL (NA, K, CL, CO2, GLUCOSE, BUN, CREATININE, CA)2021-06-03 11:32:40 Test Item Value Reference Range Interpretation Comments NA (test code = 133 mmol/L 135-145 L 8976774435) K (test code = 3.7 mmol/L 3.5-5.0 7791645716) CL (test code = 108 mmol/L 98-108 0091613780) CO2 TOTAL (test code = 20 mmol/L 23-31 L 8176502338) AGAP (test code = 2-16 6199512288) BUN (test code = 11 mg/dL 7-23 3592481572) GLUCOSE (test code = 82 mg/dL 70-110 0557190256) CREATININE (test code = 0.96 mg/dL 0.60-1.25 5441427057) CALCIUM (test code = 8.6 mg/dL 8.6-10.6 5697801738) eGFR (test code = mL/min/1.73m2 8319721344) GILBERTO (test code = GILBERTO) Association of [...] tests). Lab Interpretation Abnormal (test code = 03338-4) [facility] METABOLIC PANEL (NA, K, CL, CO2, GLUCOSE, BUN, CREATININE, CA)2021-06-02 11:45:25 Test Item Value Reference Range Interpretation Comments NA (test code = 133 mmol/L 135-145 L 7740095216) K (test code = 3.7 mmol/L 3.5-5.0 9678339217) CL (test code = 111 mmol/L 98-108 H 0517010712) CO2 TOTAL (test code = 17 mmol/L 23-31 L 0923414578) AGAP (test code = 2-16 4543955337) BUN (test code = 15 mg/dL 7-23 1297168409) GLUCOSE (test code = 88 mg/dL 70-110 2431621050) CREATININE (test code = 0.96 mg/dL 0.60-1.25 7623989559) CALCIUM (test code = 8.1 mg/dL 8.6-10.6 L 2844571693) eGFR (test code = mL/min/1.73m2 8241452660) GILBERTO (test code = GILBERTO) Association of [...] tests). Lab Interpretation Abnormal (test code = 06741-1) [facility] METABOLIC PANEL (NA, K, CL, CO2, GLUCOSE, BUN, CREATININE, CA)2021-06-01 17:06:47 Test Item Value Reference Range Interpretation Comments NA (test code = 131 mmol/L 135-145 L 4453507729) K (test code = 3.9 mmol/L 3.5-5.0 Slight 3122659528) hemolysis CL (test code = 108 mmol/L 98-108 1996686976) CO2 TOTAL (test code 15 mmol/L 23-31 L = 0241697520) AGAP (test code = 2-16 0960507420) BUN (test code = 26 mg/dL 7-23 H Slight 6587331444) hemolysis GLUCOSE (test code = 85 mg/dL 70-110 1019051987) CREATININE (test code 1.26 mg/dL 0.60-1.25 H = 3053090418) CALCIUM (test code = 8.1 mg/dL 8.6-10.6 L 5541700786) eGFR (test code = mL/min/1.73m2 4703018922) GILBERTO (test code = GILBERTO) Association of [...] tests). Lab Interpretation Abnormal (test code = 92753-8) [facility] [id number] 05:45:35 Test Item Value Reference Range Interpretation Comments LACTIC ACID (test code = 0.67 mmol/L 0.50-2.20 7820824962) Lab Interpretation (test code = Normal 84702-4) [facility] [id number] 23:44:55 Test Item Value Reference Interpretation Comments Range TROPONIN I (test 0.004 ng/mL See_Comment [Automated code = 3086613566) message] The system which generated this result [...] biotin. Lab Interpretation Normal (test code = 01105-9) [facility] 23:33:28 Test Item Value Reference Range Interpretation Comments LIPASE (test code = 4392028822) 386 U/L 0-220 H Lab Interpretation (test code = Abnormal 45353-1) [facility] (26898)2021-05-31 23:33:28 Test Item Value Reference Range Interpretation Comments NA (test code = 128 mmol/L 135-145 L 6574692680) K (test code = 4.2 mmol/L 3.5-5.0 0200390823) CL (test code = 102 mmol/L 98-108 1472525180) CO2 TOTAL (test code = 13 mmol/L 23-31 L 3539140505) AGAP (test code = 2-16 4170764726) BUN (test code = 47 mg/dL 7-23 H 6740919009) GLUCOSE (test code = 106 mg/dL 70-110 3569633609) CREATININE (test code = 2.38 mg/dL 0.60-1.25 H 6559816501) TOTAL BILI (test code = 0.6 mg/dL 0.1-1.6 4964043750) CALCIUM (test code = 9.5 mg/dL 8.6-10.6 4276368936) T PROTEIN (test code = 7.3 g/dL 6.3-8.2 8327562767) ALBUMIN (test code = 4.6 g/dL 3.5-5.0 2885426011) ALK PHOS (test code = 110 U/L 34-122 2027491750) ALTv (test code = 29 U/L 5-50 1742-6) AST(SGOT) (test code = 33 U/L 13-40 5414225501) eGFR (test code = mL/min/1.73m2 8524150732) GILBERTO (test code = GILBERTO) Association of [...] tests). Lab Interpretation Abnormal (test code = 83552-4) [facility] WITH [id number] 22:57:06 Test Item Value Reference Range Interpretation [...] RDW-SD (test code = 43.2 fL 38.5-51.6 98826-3) RDW-CV (test code = 13.7 % 12.1-15.4 788-0) PLT (test code = See_Comment [Automated 777-3) message] The sy stem which generated this result transmitted reference range : 150 - 328 10*3/ ?L. The reference r meredith was not used to interpret this result as normal/abnormal . MPV (test code = 10.1 fL 9.8-13.0 07215-4) NRBC/100 WBC (test See_Comment [Automat ed code = 8407395255) message] The system which generated this result transmitted reference range : 0.0 - 10.0 /100 WBCs. The refer ence range was not u sed to interpret th is result as normal/abnormal . NRBC x10^3 (test code <0.01 See_Comment [Auto mated = 6553781481) message] The s ystem which generated this result transmitted reference range : 10*3/?L. The reference range was not used to interpret this result as normal/abnormal . GRAN MAT (NEUT) % 68.1 % (test code = 770-8) IMM GRAN % (test code 0.40 % = 4081940965) LYMPH % (test code = 21.9 % 736-9) MONO % (test code = 8.9 % 5905-5) EOS % (test code = 0.3 % 713-8) BASO % (test code = 0.4 % 706-2) GRAN MAT x10^3(ANC) 5.38 10*3/uL 1.99-6.95 (test code = 9064360279) IMM GRAN x10^3 (test 0.03 10*3/uL 0.00-0.06 code = 2061131698) LYMPH x10^3 (test code 1.73 10*3/uL 1.09-3.23 = 731-0) MONO x10^3 (test code 0.70 10*3/uL 0.36-1.02 = 742-7) EOS x10^3 (test code = <0.03 0.06-0.53 L 711-2) BASO x10^3 (test code 0.03 10*3/uL 0.01-0.09 = 704-7) Lab Interpretation Abnormal (test code = 44830-5) [facility] 09:49:03 Test Item Value Reference Range Interpretation Comments MAGNESIUM (test code = 7332019881) 2.0 mg/dL 1.7-2.4 Lab Interpretation (test code = Normal 91477-0) [facility]2021-[facility]-28 09:49:03 Test Item Value Reference Range Interpretation Comments PHOSPHORUS (test code = 0806733510) 4.0 mg/dL 2.5-5.0 Lab Interpretation (test code = Normal 08191-7) [facility] (NA, K, CL, CO2, GLUCOSE, BUN, CREATININE, CA)2021-05-21 09:49:03 Test Item Value Reference Range Interpretation Comments NA (test code = 132 mmol/L 135-145 L 7863496062) K (test code = 4.3 mmol/L 3.5-5.0 6181359854) CL (test code = 105 mmol/L 98-108 9304443869) CO2 TOTAL (test code = 21 mmol/L 23-31 L 6395358329) AGAP (test code = 2-16 5290412669) BUN (test code = 25 mg/dL 7-23 H 9977063041) GLUCOSE (test code = 98 mg/dL 70-110 6176687194) CREATININE (test code = 1.20 mg/dL 0.60-1.25 1553704841) CALCIUM (test code = 8.4 mg/dL 8.6-10.6 L 3034968906) eGFR (test code = mL/min/1.73m2 3046242932) GILBERTO (test code = GILBERTO) Association of [...] tests). Lab Interpretation Abnormal (test code = 47135-2) [facility] with Cwkdzmsnasfk3623-82-13 09:22:22 Test Item Value Reference Range Interpretation [...] RDW-SD (test code = 45.6 fL 38.5-51.6 51914-8) RDW-CV (test code = 13.7 % 12.1-15.4 788-0) PLT (test code = See_Comment [Automated 777-3) message] The sy stem which generated this result transmitted reference range : 150 - 328 10*3/ ?L. The reference r meredith was not used to interpret this result as normal/abnormal . MPV (test code = 9.7 fL 9.8-13.0 L 79193-6) NRBC/100 WBC (test See_Comment [Automat ed code = 6416352626) message] The system which generated this result transmitted reference range : 0.0 - 10.0 /100 WBCs. The refer ence range was not u sed to interpret th is result as normal/abnormal . NRBC x10^3 (test code <0.01 See_Comment [Auto mated = 6223514418) message] The s ystem which generated this result transmitted reference range : 10*3/?L. The reference range was not used to interpret this result as normal/abnormal . GRAN MAT (NEUT) % 49.4 % (test code = 770-8) IMM GRAN % (test code 0.60 % = 4366621140) LYMPH % (test code = 35.2 % 736-9) MONO % (test code = 11.9 % 5905-5) EOS % (test code = 2.1 % 713-8) BASO % (test code = 0.8 % 706-2) GRAN MAT x10^3(ANC) 2.33 10*3/uL 1.99-6.95 (test code = 2605318374) IMM GRAN x10^3 (test 0.03 10*3/uL 0.00-0.06 code = 7850503108) LYMPH x10^3 (test code 1.66 10*3/uL 1.09-3.23 = 731-0) MONO x10^3 (test code 0.56 10*3/uL 0.36-1.02 = 742-7) EOS x10^3 (test code = 0.10 10*3/uL 0.06-0.53 711-2) BASO x10^3 (test code 0.04 10*3/uL 0.01-0.09 = 704-7) Lab Interpretation Abnormal (test code = 87206-1) [facility] Test Item Value Reference Range Interpretation Comments LIPASE (test code = 6295208774) 307 U/L 0-220 H Lab Interpretation (test code = Abnormal 44737-9) [facility] ([facility]64[facility]2021-[facility]-20 20:21:19 Test Item Value Reference Range Interpretation Comments NA (test code = 132 mmol/L 135-145 L [id number]) K (test code = 4.3 mmol/L 3.5-5.0 2459025103) CL (test code = 100 mmol/L 98-108 4943415160) CO2 TOTAL (test code = 18 mmol/L 23-31 L 6021587494) AGAP (test code = 2-16 9754427989) BUN (test code = 32 mg/dL 7-23 H 0523332023) GLUCOSE (test code = 100 mg/dL 70-110 4879264142) CREATININE (test code = 1.76 mg/dL 0.60-1.25 H 8917735354) TOTAL BILI (test code = 0.7 mg/dL 0.1-1.1 5229760424) CALCIUM (test code = 9.6 mg/dL 8.6-10.6 6823300613) T PROTEIN (test code = 7.5 g/dL 6.3-8.2 6847243267) ALBUMIN (test code = 4.7 g/dL 3.5-5.0 0396348492) ALK PHOS (test code = 104 U/L 34-122 0790837829) ALTv (test code = 23 U/L 5-50 1742-6) AST(SGOT) (test code = 29 U/L 13-40 1412618038) eGFR (test code = mL/min/1.73m2 3762805632) GILBERTO (test code = GILBERTO) Association of [...] tests). Lab Interpretation Abnormal (test code = 35140-0) [facility] WITH [id number] 20:15:39 Test Item Value Reference Range Interpretation Comments WBC (test code = See_Comment [Automated message] 6690-2) The system [employer]me generated this result transmitted ref erence range: 4.20 - 1 0.70 10*3/?L. The re ference range was not u sed to interpret this result as normal/abnor mal. RBC (test code = See_Comment [Automated message] 789-8) The system [employer]me generated this result transmitted ref erence range: [...] RDW-SD (test code 44.8 fL 38.5-51.6 = 75819-6) RDW-CV (test code 13.7 % 12.1-15.4 = 788-0) PLT (test code = See_Comment [Automated message] 777-3) The system [employer]me generated this result transmitted ref erence range: 150 - 32 8 10*3/?L. The re ference range was not u sed to interpret this result as normal/abnor mal. MPV (test code = 9.8 fL 9.8-13.0 41555-4) NRBC/100 WBC (test See_Comment [Automat ed message] code = 5517216076) The syste dondeEsta™ which generated this result transmitted ref erence range: 0.0 - 10 .0 /100 WBCs. The refer ence range was not u sed to interpret this result as normal/abnor mal. NRBC x10^3 (test <0.01 See_Comment [Automated message] code = 3965222059) The syste m which generated this result transmitted ref erence range: 10*3/?L. The reference range was not used to interpr et this result as normal/abnormal . GRAN MAT (NEUT) % 55.9 % (test code = 770-8) IMM GRAN % (test 0.40 % code = 4225317275) LYMPH % (test code 32.5 % = 736-9) MONO % (test code 9.4 % = 5905-5) EOS % (test code = 1.2 % 713-8) BASO % (test code 0.6 % = 706-2) GRAN MAT 3.87 10*3/uL 1.99-6.95 x10^3(ANC) (test code = 9831760236) IMM GRAN x10^3 0.03 10*3/uL 0.00-0.06 (test code = 0400027616) LYMPH x10^3 (test 2.25 10*3/uL 1.09-3.23 code = 731-0) MONO x10^3 (test 0.65 10*3/uL 0.36-1.02 code = 742-7) EOS x10^3 (test 0.08 10*3/uL 0.06-0.53 code = 711-2) BASO x10^3 (test 0.04 10*3/uL 0.01-0.09 code = 704-7) [facility] [id number] 20:07:57 Test Item Value Reference Range Interpretation Comments LACTIC ACID (test code = 1.81 mmol/L 0.50-2.20 9870839652) Lab Interpretation (test code = Normal 25951-2) [facility] (NA, K, CL, CO2, GLUCOSE, BUN, CREATININE, CA)2021-05-08 10:32:35 Test Item Value Reference Range Interpretation Comments NA (test code = 135 mmol/L 135-145 5236445583) K (test code = 4.2 mmol/L 3.5-5.0 7770003593) CL (test code = 106 mmol/L 98-108 3348741750) CO2 TOTAL (test code 23 mmol/L 23-31 = 2016733089) AGAP (test code = 2-16 3830346985) BUN (test code = 22 mg/dL 7-23 8365203594) GLUCOSE (test code = 87 mg/dL 70-110 9407982812) CREATININE (test code 1.21 mg/dL 0.60-1.25 = 1527631581) CALCIUM (test code = 8.7 mg/dL 8.6-10.6 4681135552) eGFR (test code = mL/min/1.73m2 0661087446) GILBERTO (test code = GILBERTO) Association of [...] or urine or abnormalities in imaging tests). [facility] Metabolic Panel (NA, K, CL, CO2, GLUCOSE, BUN, CREATININE, CA)2021-05-08 10:32:35 Test Item Value Reference Range Interpretation Comments NA (test code = 135 mmol/L 135-145 7916785930) K (test code = 4.2 mmol/L 3.5-5.0 8742008195) CL (test code = 106 mmol/L 98-108 9197733620) CO2 TOTAL (test code 23 mmol/L 23-31 = 8586805875) AGAP (test code = 2-16 6866766854) BUN (test code = 22 mg/dL 7-23 9277789014) GLUCOSE (test code = 87 mg/dL 70-110 0705630757) CREATININE (test code 1.21 mg/dL 0.60-1.25 = 5399516971) CALCIUM (test code = 8.7 mg/dL 8.6-10.6 3416277966) eGFR (test code = mL/min/1.73m2 2039475599) GILBERTO (test code = GILBERTO) Association of [...] or urine or abnormalities in imaging tests). [facility] with [id number] 10:12:52 Test Item Value Reference Range Interpretation Comments WBC (test code = See_Comment [Automated 1943-2) message] The sy stem which generated this [...] RDW-SD (test code = 48.4 fL 38.5-51.6 64634-2) RDW-CV (test code = 14.0 % 12.1-15.4 788-0) PLT (test code = See_Comment [Automated 777-3) message] The sy stem which generated this result transmitted reference range : 150 - 328 10*3/ ?L. The reference r meredith was not used to interpret this result as normal/abnormal . MPV (test code = 9.6 fL 9.8-13.0 L 36300-9) NRBC/100 WBC (test See_Comment [Automat ed code = 2177586645) message] The system which generated this result transmitted reference range : 0.0 - 10.0 /100 WBCs. The refer ence range was not u sed to interpret th is result as normal/abnormal . NRBC x10^3 (test code <0.01 See_Comment [Auto mated = 3887675203) message] The s ystem which generated this result transmitted reference range : 10*3/?L. The reference range was not used to interpret this result as normal/abnormal . GRAN MAT (NEUT) % 55.6 % (test code = 770-8) IMM GRAN % (test code 0.20 % = 5836155545) LYMPH % (test code = 31.5 % 736-9) MONO % (test code = 9.9 % 5905-5) EOS % (test code = 2.0 % 713-8) BASO % (test code = 0.8 % 706-2) GRAN MAT x10^3(ANC) 2.76 10*3/uL 1.99-6.95 (test code = 0012537337) IMM GRAN x10^3 (test <0.03 0.00-0.06 code = 9965755374) LYMPH x10^3 (test code 1.56 10*3/uL 1.09-3.23 = 731-0) MONO x10^3 (test code 0.49 10*3/uL 0.36-1.02 = 742-7) EOS x10^3 (test code = 0.10 10*3/uL 0.06-0.53 711-2) BASO x10^3 (test code 0.04 10*3/uL 0.01-0.09 = 704-7) Lab Interpretation Abnormal (test code = 63825-8) [facility] with Hpzgpgllhhzm0919-54-60 10:12:52 Test Item Value Reference Range Interpretation [...] RDW-SD (test code = 48.4 fL 38.5-51.6 63103-9) RDW-CV (test code = 14.0 % 12.1-15.4 788-0) PLT (test code = See_Comment [Automated 777-3) message] The sy stem which generated this result transmitted reference range : 150 - 328 10*3/ ?L. The reference r meredith was not used to interpret this result as normal/abnormal . MPV (test code = 9.6 fL 9.8-13.0 L 74758-9) NRBC/100 WBC (test See_Comment [Automat ed code = 7157921417) message] The system which generated this result transmitted reference range : 0.0 - 10.0 /100 WBCs. The refer ence range was not u sed to interpret th is result as normal/abnormal . NRBC x10^3 (test code <0.01 See_Comment [Auto mated = 6278650858) message] The s ystem which generated this result transmitted reference range : 10*3/?L. The reference range was not used to interpret this result as normal/abnormal . GRAN MAT (NEUT) % 55.6 % (test code = 770-8) IMM GRAN % (test code 0.20 % = 9698266584) LYMPH % (test code = 31.5 % 736-9) MONO % (test code = 9.9 % 5905-5) EOS % (test code = 2.0 % 713-8) BASO % (test code = 0.8 % 706-2) GRAN MAT x10^3(ANC) 2.76 10*3/uL 1.99-6.95 (test code = 4807273034) IMM GRAN x10^3 (test <0.03 0.00-0.06 code = 1510017699) LYMPH x10^3 (test code 1.56 10*3/uL 1.09-3.23 = 731-0) MONO x10^3 (test code 0.49 10*3/uL 0.36-1.02 = 742-7) EOS x10^3 (test code = 0.10 10*3/uL 0.06-0.53 711-2) BASO x10^3 (test code 0.04 10*3/uL 0.01-0.09 = 704-7) Lab Interpretation Abnormal (test code = 43020-4) [facility] METABOLIC PANEL (NA, K, CL, CO2, GLUCOSE, BUN, CREATININE, CA)2021-05-08 01:11:57 Test Item Value Reference Range Interpretation Comments NA (test code = 134 mmol/L 135-145 L 8457354657) K (test code = 4.7 mmol/L 3.5-5.0 7628482374) CL (test code = 100 mmol/L 98-108 1875612264) CO2 TOTAL (test code = 24 mmol/L 23-31 0299753371) AGAP (test code = 2-16 0837725331) BUN (test code = 27 mg/dL 7-23 H 3784823083) GLUCOSE (test code = 94 mg/dL 70-110 0824400839) CREATININE (test code = 1.31 mg/dL 0.60-1.25 H 9965203836) CALCIUM (test code = 9.5 mg/dL 8.6-10.6 5386936812) eGFR (test code = mL/min/1.73m2 6741365532) GILBERTO (test code = GILBERTO) Association of [...] tests). Lab Interpretation Abnormal (test code = 79961-4) [facility]88230[facility] (ALB,T.PRO,BILI T,BU/BC,ALT,AST,ALK PHOS)2021-05-08 01:11:57 Test Item Value Reference Range Interpretation Comments TOTAL BILI (test code = 0076502302) 0.8 mg/dL 0.1-1.1 BILI UNCON (test code = 2160642154) 0.2 mg/dL 0.1-1.1 BILI CONJ (test code = 8303395613) 0.0 mg/dL 0.0-0.3 T PROTEIN (test code = 5230214085) 7.1 g/dL 6.3-8.2 ALBUMIN (test code = 8938826208) 4.4 g/dL 3.5-5.0 ALK PHOS (test code = 5429380361) 88 U/L 34-122 ALTv (test code = 1742-6) 40 U/L 5-50 AST(SGOT) (test code = 0961136115) 38 U/L 13-40 Lab Interpretation (test code = Normal 72508-3) [facility] (NA, K, CL, CO2, GLUCOSE, BUN, CREATININE, CA)2021-05-08 01:11:57 Test Item Value Reference Range Interpretation Comments NA (test code = 134 mmol/L 135-145 L 0612733555) K (test code = 4.7 mmol/L 3.5-5.0 9707958448) CL (test code = 100 mmol/L 98-108 3090074669) CO2 TOTAL (test code = 24 mmol/L 23-31 5072078047) AGAP (test code = 2-16 8740083373) BUN (test code = 27 mg/dL 7-23 H 9694120550) GLUCOSE (test code = 94 mg/dL 70-110 6569296989) CREATININE (test code = 1.31 mg/dL 0.60-1.25 H 1515700181) CALCIUM (test code = 9.5 mg/dL 8.6-10.6 8612926852) eGFR (test code = mL/min/1.73m2 8408344255) GILBERTO (test code = GILBERTO) Association of [...] tests). Lab Interpretation Abnormal (test code = 13105-4) [facility] (98006[facility] (ALB,T.PRO,BILI T,BU/BC,ALT,AST,ALK PHOS)2021-05-08 01:11:57 Test Item Value Reference Range Interpretation Comments TOTAL BILI (test code = 0794227666) 0.8 mg/dL 0.1-1.1 BILI UNCON (test code = 1102164093) 0.2 mg/dL 0.1-1.1 BILI CONJ (test code = 8545220721) 0.0 mg/dL 0.0-0.3 T PROTEIN (test code = 7605743354) 7.1 g/dL 6.3-8.2 ALBUMIN (test code = 9882017354) 4.4 g/dL 3.5-5.0 ALK PHOS (test code = 2942291467) 88 U/L 34-122 ALTv (test code = 1742-6) 40 U/L 5-50 AST(SGOT) (test code = 1704584286) 38 U/L 13-40 Lab Interpretation (test code = Normal 44059-2) [facility] WITH [id number] 00:59:56 Test Item Value Reference Range Interpretation Comments WBC (test code = See_Comment [Automated 7190-2) message] The sy stem which generated this result transmitted reference range : 4.20 - 10.70 10*3/?L. The reference range was not used to interpret this result as normal/abnormal . RBC (test code = See_Comment L [Automated 669-8) message] The sy stem which generated this [...] RDW-SD (test code = 46.9 fL 38.5-51.6 41170-4) RDW-CV (test code = 13.9 % 12.1-15.4 788-0) PLT (test code = See_Comment [Automated 857-3) message] The sy stem which generated this result transmitted reference range : 150 - 328 10*3/ ?L. The reference r meredith was not used to interpret this result as normal/abnormal . MPV (test code = 10.0 fL 9.8-13.0 96449-2) NRBC/100 WBC (test See_Comment [Automat ed code = 0393777460) message] The system which generated this result transmitted reference range : 0.0 - 10.0 /100 WBCs. The refer ence range was not u sed to interpret th is result as normal/abnormal . NRBC x10^3 (test code <0.01 See_Comment [Auto mated = 5623870586) message] The s ystem which generated this result transmitted reference range : 10*3/?L. The reference range was not used to interpret this result as normal/abnormal . GRAN MAT (NEUT) % 53.9 % (test code = 770-8) IMM GRAN % (test code 0.30 % = 3397948913) LYMPH % (test code = 32.0 % 736-9) MONO % (test code = 11.6 % 5905-5) EOS % (test code = 1.6 % 713-8) BASO % (test code = 0.6 % 706-2) GRAN MAT x10^3(ANC) 3.67 10*3/uL 1.99-6.95 (test code = 4057998142) IMM GRAN x10^3 (test <0.03 0.00-0.06 code = 0127616234) LYMPH x10^3 (test code 2.18 10*3/uL 1.09-3.23 = 731-0) MONO x10^3 (test code 0.79 10*3/uL 0.36-1.02 = 742-7) EOS x10^3 (test code = 0.11 10*3/uL 0.06-0.53 711-2) BASO x10^3 (test code 0.04 10*3/uL 0.01-0.09 = 704-7) Lab Interpretation Abnormal (test code = 95731-4) [facility] WITH [id number] 00:59:56 Test Item Value Reference Range Interpretation [...] RDW-SD (test code = 46.9 fL 38.5-51.6 49867-2) RDW-CV (test code = 13.9 % 12.1-15.4 788-0) PLT (test code = See_Comment [Automated 777-3) message] The sy stem which generated this result transmitted reference range : 150 - 328 10*3/ ?L. The reference r meredith was not used to interpret this result as normal/abnormal . MPV (test code = 10.0 fL 9.8-13.0 26697-5) NRBC/100 WBC (test See_Comment [Automat ed code = 1177063666) message] The system which generated this result transmitted reference range : 0.0 - 10.0 /100 WBCs. The refer ence range was not u sed to interpret th is result as normal/abnormal . NRBC x10^3 (test code <0.01 See_Comment [Auto mated = 1099836408) message] The s ystem which generated this result transmitted reference range : 10*3/?L. The reference range was not used to interpret this result as normal/abnormal . GRAN MAT (NEUT) % 53.9 % (test code = 770-8) IMM GRAN % (test code 0.30 % = 6805659767) LYMPH % (test code = 32.0 % 736-9) MONO % (test code = 11.6 % 5905-5) EOS % (test code = 1.6 % 713-8) BASO % (test code = 0.6 % 706-2) GRAN MAT x10^3(ANC) 3.67 10*3/uL 1.99-6.95 (test code = 2064097288) IMM GRAN x10^3 (test <0.03 0.00-0.06 code = 2220283586) LYMPH x10^3 (test code 2.18 10*3/uL 1.09-3.23 = 731-0) MONO x10^3 (test code 0.79 10*3/uL 0.36-1.02 = 742-7) EOS x10^3 (test code = 0.11 10*3/uL 0.06-0.53 711-2) BASO x10^3 (test code 0.04 10*3/uL 0.01-0.09 = 704-7) Lab Interpretation Abnormal (test code = 05588-9) [facility] W/AUTO [id number] 09:20:00 Test Item Value Reference Range Interpretation [...] (test code NO = MDIFF) CBC W/AUTO [id number] 08:59:00 Test Item Value Reference Range Interpretation [...] REQUIRED (test code = MDIFF) BASIC METABOLIC [id number] 08:21:00 Test Item Value Reference Range Interpretation [...] 8.4 mg/dL 8.0-10.5 N CA) BASIC METABOLIC [id number] 08:34:00 Test Item Value Reference Range Interpretation [...] 8.4 mg/dL 8.0-10.5 N CA) CBC W/AUTO [id number] 07:41:00 Test Item Value Reference Range Interpretation [...] = MDIFF) UA RFLX MICR CULT IF [id number] 10:10:00 Test Item Value Reference Range Interpretation [...] Suprapubic Pain Temperature > 100.4 FSpec[facility] Description[facility] [id number] 04:13:00 Test Item Value Reference Range Interpretation [...] mg/dL 8.0-10.5 N CA) Coronavirus 2019 nCoV [id number] 22:03:00 Test Item Value Reference Range Interpretation Comments Coronavirus 2019 Negative Negative Performed b y certified nCoV Bedside (testing tech at [place] Med code = CtrNegative res ults should YJPIF70RMQBZ) be treated as presumptive and, ifinconsis tent with clinical signs and symptoms or necessaryfor patient management, fifi uld be tested with an alternativemole cular assay. Negative result s do not preclude XRYO-OfF-9ujpbz tion and should not be u sed as the sole basis forp atient management deci sions. Negative result s should beconsidered in the context of a patient's recent exposures,histo ry, presence of clinical sig ns and symptoms consis tentwith COVID-19. CBC W/AUTO [id number] 21:11:00 Test Item Value Reference Range Interpretation [...] MX#) 0.6 k/mm3 0.1-0.8 N BASIC METABOLIC [id number] 19:00:00 Test Item Value Reference Range Interpretation [...] POCGLU) 92 MG/DL - CT ABD PELVIS W/[id number] 00:00:00 [facility] 1970 Sex: MName: DORA JOSEPH FSED : 1970 Age/S: 51 / M [address] [facility] Unit #: [id number] Loc: [place] Erazo [address] Phys: Marcello Benoit MD Acct: [id number] Dis Date: Status: REG ER PHONE #: Exam Date: 04/28/2021 1914 FAX #: Reason: epigastric and LLQ pain, R-sided colostomy EXAMS: CPT CODE: [id number] CT ABD PELVIS W/CONT 27608 PROCEDURE INFORMATION: Exam: CT Abdomen And Pelvis [...] : 1970 Age/S: 51 / M [address] [facility] Unit #: [id number] Loc: [place]ise[place] Erazo [address] Phys: Marcello Benoit MD Acct: [id number] Dis Date: Status: REG ER PHONE #: Exam Date: 04/28/20211913 FAX #: Reason: epigastric and LLQ pain, R-sided colostomy EXAMS: CPT CODE: [id number] CT ABD PELVIS W/CONT 90318 <Continued> Reproductive: Unremarkable as visualized. Bones/joints: Unremarkable. No acute fracture. Soft tissues: Unremarkable. IMPRESSION: 1. 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 2. Mild long segment bowel wall thickening/mucosal prominence compatible with an enteritis. No evidence for obstruction. at 1955 Reported and signed by: Hector Nichols M.D. CC: Marcello Benoit MD Technologist:Stephanie Albrecht, RT(R)(CT) CTDI: DLP: Trnscb Date/Time: 04/28/2021 (1955) t.JESIKA Orig Print D/T: S: 04/28/2021 (1955) PAGE 2 Signed ReportBasic Metabolic Panel (NA, K, CL, CO2, GLUCOSE, BUN, CREATININE, CA)2020-08-23 10:29:00 Test Item Value Reference Range Interpretation Comments NA (test code = 139 mmol/L 135-145 0793631263) K (test code = 4.0 mmol/L 3.5-5 6757971202) CL (test code = 108 mmol/L 98-108 9722352292) CO2 TOTAL (test code = 22 mmol/L 23-31 L 9434428135) AGAP (test code = 2-16 0919036740) BUN (test code = 25 mg/dL 7-23 H 4025845370) GLUCOSE (test code = 91 mg/dL 70-110 7199780536) CREATININE (test code = 1.14 mg/dL 0.6-1.25 3932657881) CALCIUM (test code = 8.9 mg/dL 8.6-10.6 7166226109) eGFR Calculation mL/min/1.73m2 (Non-) (test code = 8202206610) eGFR Calculation mL/min/1.73m2 () (test code = 1905188458) GILBERTO (test code = GILBERTO) Association of [...] tests). Lab Interpretation Abnormal (test code = 64395-0) [facility] [id number] 10:13:00 Test Item Value Reference Range Interpretation Comments WBC (test code = 6690-2) See_Comment [A utomated message] The system [employer] generated this result transmit dain reference range : 4.20 - 10.70 10*3/?L. The reference range was not used to interpret this result as normal/abnormal . RBC (test code = 789-8) See_Comment L [Au tomated message] The system [employer] generated this result transmit dain reference range [...] 777-3) See_Comment [Au tomated message] The system [employer] generated this result transmit dain reference range : 150 - 328 10*3/?L. The reference range was not used to interpret this result as normal/abnormal . MPV (test code = 9.0 fL 9.8-13 L 82130-7) RDW-CV (test code = 18.7 % 12.1-15.4 H 788-0) RDW-SD (test code = 59.7 fL 38.5-51.6 H 62760-7) NRBC x10^3 (test code = <0.01 See_Comment [Au tomated message] 2487468107) The system [employer] generated this result transmit dain reference range : 10*3/?L. The reference range was not used to interpret this result as normal/abnormal . NRBC/100 WBC (test code See_Comment [Au tomated message] = 5831923286) The system [facility] generated this result transmit dain reference range : 0.0 - 10.0 /100 WBC s. The reference r meredith was not used to interpret this result as normal/abnormal . IPF % (test code = 7858740266) Lab Interpretation (test Abnormal code = 53665-1) [facility]OVID[facility] (ID NOW RAPID TESTING)2020-08-23 00:56:00 Test Item Value Reference Range Interpretation Comments SARS-CoV-2 Rapid ID NOW Not Detected Not Detected (test code = 06399-6) GILBERTO (test code = GILBERTO) ID NOW COVID-19 Assay is an isothermal nucleic acid amplification test intended for the qualitative detection of nucleic acid from SARS-CoV-2 viral RNA in nasopharyngeal (JTAC) specimens. It is used under Emergency Use [...] indicated. Lab Interpretation Normal (test code = 96935-4) [facility] (NA, K, CL, CO2, GLUCOSE, BUN, CREATININE, CA)2020-08-22 22:36:00 Test Item Value Reference Range Interpretation Comments NA (test code = 133 mmol/L 135-145 L 7227435117) K (test code = 4.5 mmol/L 3.5-5 7462085015) CL (test code = 104 mmol/L 98-108 9227299947) CO2 TOTAL (test code = 25 mmol/L 23-31 0974494808) AGAP (test code = 2-16 3526483186) BUN (test code = 27 mg/dL 7-23 H 9014514959) GLUCOSE (test code = 94 mg/dL 70-110 1239451980) CREATININE (test code = 1.33 mg/dL 0.6-1.25 H 1570109384) CALCIUM (test code = 9.5 mg/dL 8.6-10.6 0923840556) eGFR Calculation mL/min/1.73m2 (Non-) (test code = 8661165904) eGFR Calculation mL/min/1.73m2 () (test code = 7958812649) GILBERTO (test code = GILBERTO) Association of [...] tests). Lab Interpretation Abnormal (test code = 61888-1) [facility] (ALB, T.PRO, BILI T, BU/BC, ALT, AST, ALK PHOS)2020-08-22 22:36:00 Test Item Value Reference Range Interpretation Comments TOTAL BILI (test code = 8840335390) 0.4 mg/dL 0.1-1.1 BILI UNCON (test code = 5152158151) 0.1 mg/dL 0.1-1.1 BILI CONJ (test code = 6341315665) 0.0 mg/dL 0-0.3 T PROTEIN (test code = 3617866806) 6.8 g/dL 6.3-8.2 ALBUMIN (test code = 1809052660) 4.0 g/dL 3.5-5 ALK PHOS (test code = 3569970523) 78 U/L 34-122 ALTv (test code = 1742-6) 35 U/L 5-50 AST(SGOT) (test code = 8855934320) 29 U/L 13-40 Lab Interpretation (test code = Normal 38359-4) [facility] with [id number] 22:15:00 Test Item Value Reference Range Interpretation [...] (test code = 60.6 fL 38.5-51.6 H 02517-0) RDW-CV (test code = 19.0 % 12.1-15.4 H 788-0) PLT (test code = See_Comment [Automated 777-3) message] The sy stem which generated this result transmitted reference range : 150 - 328 10*3/ ?L. The reference r meredith was not used to interpret this result as normal/abnormal . MPV (test code = 9.3 fL 9.8-13 L 55728-4) NRBC/100 WBC (test See_Comment [Automat ed code = 9795531400) message] The system which generated this result transmitted reference range : 0.0 - 10.0 /100 WBCs. The refer ence range was not u sed to interpret th is result as normal/abnormal . NRBC x10^3 (test code <0.01 See_Comment [Auto mated = 4891250527) message] The s ystem which generated this result transmitted reference range : 10*3/?L. The reference range was not used to interpret this result as normal/abnormal . GRAN MAT (NEUT) % 58.6 % (test code = 770-8) IMM GRAN % (test code 0.60 % = 5945451970) LYMPH % (test code = 28.2 % 736-9) MONO % (test code = 9.5 % 5905-5) EOS % (test code = 2.4 % 713-8) BASO % (test code = 0.7 % 706-2) GRAN MAT x10^3(ANC) 3.14 10*3/uL 1.99-6.95 (test code = 5315687056) IMM GRAN x10^3 (test 0.03 10*3/uL 0-0.06 code = 3229331317) LYMPH x10^3 (test code 1.51 10*3/uL 1.09-3.23 = 731-0) MONO x10^3 (test code 0.51 10*3/uL 0.36-1.02 = 742-7) EOS x10^3 (test code = 0.13 10*3/uL 0.06-0.53 711-2) BASO x10^3 (test code 0.04 10*3/uL 0.01-0.09 = 704-7) Lab Interpretation Abnormal (test code = 59971-3) [facility] HospitalCT SO[facility] TISSUE NECK W [id number] 00:47:10Impression: 1. Patent aerodigestive tract.2. No discrete [...] glands are normal. Thyroid gland is unremarkable. Scientific Illustrator spaces are normal. Buccal spaces are normal. [...] submandibular glands are normal. Thyroid gland is unremarkable.Scientific Illustrator spaces are normal. Buccal spaces are normal. [...] or abscess is identified.RL: [id number] of Report [facility] CenterCOVID-[facility] (ID NOW RAPID TESTING)2020-07-09 23:23:00 Test Item Value Reference Range Interpretation Comments SARS-CoV-2 Rapid ID NOW Not Detected Not Detected (test code = 14865-2) GILBERTO (test code = GILBERTO) ID NOW COVID-19 Assay is an isothermal nucleic acid amplification test intended for the qualitative detection of nucleic acid from SARS-CoV-2 viral RNA in nasopharyngeal (JTAC) specimens. It is used under Emergency Use [...] indicated. Lab Interpretation Normal (test code = 12133-2) [facility]00 Test Item Value Reference Range Interpretation Comments APPEARANCE (test code = Clear Clear 7193190074) COLOR (test code = Yellow Yellow [id number]) PH (test code = 4.8-8.0 7531198634) SP GRAVITY (test code = 1.003-1.030 2768967625) GLU U QUAL (test code = Normal Normal 9621830266) BLOOD (test code = Negative Negative 9186906673) KETONES (test code = Negative Negative 7311126108) PROTEIN (test code = 30 mg/dL Negative A 2887-8) UROBILIN (test code = Normal Normal 4535048225) BILIRUBIN (test code = Negative Negative 4373877521) NITRITE (test code = Negative Negative 8429206241) LEUK ROGER (test code = Negative Negative 6104183499) RBC/HPF (test code = <1 See_Comment [Autom ated message] [id number]) The system [email or web address] generated this result transmitted ref erence range: 0 - 3 HP F. The reference range was not used to int erpret this result as normal/abnormal . WBC/HPF (test code = See_Comment [Autom ated message] 6926164033) The system [employer]me generated this result transmitted ref erence range: 0 - 5 HP F. The reference range was not used to int erpret this result as normal/abnormal . BACTERIA (test code = Negative Negative 8550482530) MUCOUS (test code = Moderate Negative LPF A 6941528925) HYAL CAST (test code = See_Comment H [Aut omated message] 8807480705) The system [employer]me generated this result transmitted ref erence range: <=2 LPF. The reference range was not used to int erpret this result as normal/abnormal . Lab Interpretation (test Abnormal code = 46003-5) [facility] (NA, K, CL, CO2, GLUCOSE, BUN, CREATININE, CA)2020-07-09 23:20:00 Test Item Value Reference Range Interpretation Comments NA (test code = 135 mmol/L 135-145 6426809937) K (test code = 3.9 mmol/L 3.5-5 4685434390) CL (test code = 107 mmol/L 98-108 8836022748) CO2 TOTAL (test code = 20 mmol/L 23-31 L 4076400197) AGAP (test code = 2-16 0218147853) BUN (test code = 27 mg/dL 7-23 H 9098564779) GLUCOSE (test code = 86 mg/dL 70-110 8574506009) CREATININE (test code = 1.11 mg/dL 0.6-1.25 7817534447) CALCIUM (test code = 9.0 mg/dL 8.6-10.6 7170510153) eGFR Calculation mL/min/1.73m2 (Non-) (test code = 7327417901) eGFR Calculation mL/min/1.73m2 () (test code = 2919763784) GILBERTO (test code = GILBERTO) Association of [...] tests). Lab Interpretation Abnormal (test code = 67082-5) [facility] GROUP [id number] 23:11:00 Test Item Value Reference Range Interpretation Comments Streptococcus pyogenes (group A) Negative Negative antigen (test code = 04466-8) Lab Interpretation (test code = Normal 52787-4) [facility] with [id number] 23:02:00 Test Item Value Reference Range Interpretation [...] (test code = 55.5 fL 38.5-51.6 H 91201-5) RDW-CV (test code = 18.9 % 12.1-15.4 H 788-0) PLT (test code = See_Comment [Automated 777-3) message] The sy stem which generated this result transmitted reference range : 150 - 328 10*3/ ?L. The reference r meredith was not used to interpret this result as normal/abnormal . MPV (test code = 8.9 fL 9.8-13 L 73009-2) NRBC/100 WBC (test See_Comment [Automat ed code = 0043602485) message] The system which generated this result transmitted reference range : 0.0 - 10.0 /100 WBCs. The refer ence range was not u sed to interpret th is result as normal/abnormal . NRBC x10^3 (test code <0.01 See_Comment [Auto mated = 3442747726) message] The s ystem which generated this result transmitted reference range : 10*3/?L. The reference range was not used to interpret this result as normal/abnormal . GRAN MAT (NEUT) % 59.4 % (test code = 770-8) IMM GRAN % (test code 0.20 % = 9268336440) LYMPH % (test code = 29.9 % 736-9) MONO % (test code = 9.0 % 5905-5) EOS % (test code = 1.2 % 713-8) BASO % (test code = 0.3 % 706-2) GRAN MAT x10^3(ANC) 3.56 10*3/uL 1.99-6.95 (test code = 8835300222) IMM GRAN x10^3 (test <0.03 0-0.06 code = 3452094291) LYMPH x10^3 (test code 1.79 10*3/uL 1.09-3.23 = 731-0) MONO x10^3 (test code 0.54 10*3/uL 0.36-1.02 = 742-7) EOS x10^3 (test code = 0.07 10*3/uL 0.06-0.53 711-2) BASO x10^3 (test code <0.03 0.01-0.09 = 704-7) Lab Interpretation Abnormal (test code = 65210-0) [facility]2020[facility] 13:37:00 Test Item Value Reference Range Interpretation Comments APPEARANCE (test code = Hazy Clear A 5904327679) COLOR (test code = Yellow Yellow 5554921301) PH (test code = 4.8-8.0 0111891593) SP GRAVITY (test code = 1.003-1.030 H 0398353439) GLU U QUAL (test code = Normal Normal 0254055604) BLOOD (test code = Negative Negative 8150607846) KETONES (test code = Negative Negative 1802771582) PROTEIN (test code = Negative Negative 2887-8) UROBILIN (test code = Normal Normal 2093876560) BILIRUBIN (test code = Negative Negative 7846561174) NITRITE (test code = Negative Negative 1685598779) LEUK ROGER (test code = Negative Negative 2098009259) RBC/HPF (test code = See_Comment H [Autom ated message] 7386951146) The system [employer]me generated this result transmitted ref erence range: 0 - 3 HP F. The reference range was not used to int erpret this result as normal/abnormal . WBC/HPF (test code = See_Comment [Autom ated message] 7575877591) The system [employer]me generated this result transmitted ref erence range: 0 - 5 HP F. The reference range was not used to int erpret this result as normal/abnormal . BACTERIA (test code = Negative Negative 5040340503) MUCOUS (test code = Moderate Negative LPF A 2008003033) CA OXALATE (test code = See_Comment [Au tomated message] 8413810617) The system [employer]me generated this result transmitted ref erence range: <=1 HPF. The reference range was not used to int erpret this result as normal/abnormal . SPERM (test code = See_Comment H [Automat ed message] 5995850620) The system [employer]me generated this result transmitted ref erence range: <=1 HPF. The reference range was not used to int erpret this result as normal/abnormal . HYAL CAST (test code = See_Comment H [Aut omated message] 6345401846) The system [employer]me generated this result transmitted ref erence range: <=2 LPF. The reference range was not used to int erpret this result as normal/abnormal . Lab Interpretation (test Abnormal code = 40613-1) [facility] W [id number] 13:22:00CT Abdomen and Pelvis with intravenous contrast. [...] is collapsed with diffuse thickening of the lindsye. Peritoneum: ?Thickened soft tissues noted in the [...] infection. Left seminal vesicleshowed no significant enhancement. [facility], Radiant Results Inft User - 06/05/2020 8:23 [...] sign of infection. Left seminal vesicleshowed no significantenhancement.[facility] [id number] 12:40:00 Test Item Value Reference Range Interpretation Comments TROPONIN I (test <0.012 See_Comment [Automated code = 9907581183) message] The system which generated this result [...] ? Lab Interpretation Normal (test code = 37754-6) [facility] (NA, K, CL, CO2, GLUCOSE, BUN, CREATININE, CA)2020-06-05 12:28:00 Test Item Value Reference Range Interpretation Comments NA (test code = 139 mmol/L 135-145 0515281326) K (test code = 4.4 mmol/L 3.5-5 1973579171) CL (test code = 112 mmol/L 98-108 H 0446944426) CO2 TOTAL (test code = 24 mmol/L 23-31 3519823422) AGAP (test code = 2-16 2642128791) BUN (test code = 23 mg/dL 7-23 2449112832) GLUCOSE (test code = 88 mg/dL 70-110 0552193211) CREATININE (test code = 0.96 mg/dL 0.6-1.25 4809084394) CALCIUM (test code = 9.5 mg/dL 8.6-10.6 2263590811) eGFR Calculation mL/min/1.73m2 (Non-) (test code = 9786128388) eGFR Calculation mL/min/1.73m2 () (test code = 6337559394) GILBERTO (test code = GILBERTO) Association of [...] tests). Lab Interpretation Abnormal (test code = 83785-7) [facility] (ALB, T.PRO, BILI T, BU/BC, ALT, AST, ALK PHOS)2020-06-05 12:28:00 Test Item Value Reference Range Interpretation Comments TOTAL BILI (test code = 3200888231) 0.5 mg/dL 0.1-1.1 BILI UNCON (test code = 9265234871) 0.3 mg/dL 0.1-1.1 BILI CONJ (test code = 5843949527) 0.0 mg/dL 0-0.3 T PROTEIN (test code = 5728348219) 6.6 g/dL 6.3-8.2 ALBUMIN (test code = 1898014459) 3.7 g/dL 3.5-5 ALK PHOS (test code = 1651734226) 79 U/L 34-122 ALTv (test code = 1742-6) 23 U/L 5-50 AST(SGOT) (test code = 0205143771) 27 U/L 13-40 Lab Interpretation (test code = Normal 07994-8) [facility] HospitalLipase [id number] 12:28:00 Test Item Value Reference Range Interpretation Comments LIPASE (test code = 2465688400) 150 U/L 0-220 Lab Interpretation (test code = Normal 59774-4) [facility] with [id number] 12:11:00 Test Item Value Reference Range Interpretation [...] (test code = 62.2 fL 38.5-51.6 H 48843-6) RDW-CV (test code = 20.0 % 12.1-15.4 H 788-0) PLT (test code = See_Comment [Automated 777-3) message] The sy stem which generated this result transmitted reference range : 150 - 328 10*3/ ?L. The reference r meredith was not used to interpret this result as normal/abnormal . MPV (test code = 10.0 fL 9.8-13 69231-2) NRBC/100 WBC (test See_Comment [Automat ed code = 0806502535) message] The system which generated this result transmitted reference range : 0.0 - 10.0 /100 WBCs. The refer ence range was not u sed to interpret th is result as normal/abnormal . NRBC x10^3 (test code <0.01 See_Comment [Auto mated = 0880722814) message] The s ystem which generated this result transmitted reference range : 10*3/?L. The reference range was not used to interpret this result as normal/abnormal . GRAN MAT (NEUT) % 65.7 % (test code = 770-8) IMM GRAN % (test code 0.30 % = 2800530734) LYMPH % (test code = 21.2 % 736-9) MONO % (test code = 10.0 % 5905-5) EOS % (test code = 2.3 % 713-8) BASO % (test code = 0.5 % 706-2) GRAN MAT x10^3(ANC) 3.99 10*3/uL 1.99-6.95 (test code = 6792264972) IMM GRAN x10^3 (test <0.03 0-0.06 code = 3997848022) LYMPH x10^3 (test code 1.29 10*3/uL 1.09-3.23 = 731-0) MONO x10^3 (test code 0.61 10*3/uL 0.36-1.02 = 742-7) EOS x10^3 (test code = 0.14 10*3/uL 0.06-0.53 711-2) BASO x10^3 (test code 0.03 10*3/uL 0.01-0.09 = 704-7) Lab Interpretation Abnormal (test code = 51769-9) [facility] HospitalLactic Acid Whole [id number] 12:04:00 Test Item Value Reference Range Interpretation Comments LACTIC ACID (test code = 1.23 mmol/L 7804574624) [facility] HospitalIR ABSCESS DRAIN [id number] 14:57:23 Successful abscessogram demonstrated unchanged position of [...] consentwas obtained. Prior to beginning the procedure, Monroe Protocol was usedtoconfirm the patient's identity and planned procedure. Maximum sterilebarriers including cap, mask, momin nd hygiene, sterile gloves, sterile gown,large sterile drape and cutaneous antisepsis were used. Theskin overlying the existing drainage catheter in the right upperquadrant of the abdomen was sterilely prepped, draped and infiltrated with1 percent lidocaine. A recovery operator image was documented prior to the [...] drainage catheter and with questionablefistulization to bowel. [facility], Radiant Results Inft User - 05/31/2020 9:58 AM CDTEXAMINATION: PERCUTANEOUS PERIHEPATIC ABSCESS DRAINAGE CATHETEREVALUATION/EXCHANGE.HISTORY: 50 years-old; Male; s/p Drain placement in right abdomen fluidcollection. No output for 3 consecutive days. Please eval for possibleremoval.ATTENDEES: Attending radiologist: Dr. Sadiq Gordon; Resident: Dr. Johnny Tilley;[facility] resident: Dr. Leeanna Valenzuela.SEDATION: No moderate sedation was administered for this procedure.RADIATION DOSE: 7.7 mGy.TECHNIQUE: The risks, benefits and alternatives were discussed and informed consentwas obtained. Prior to beginning the procedure, Monroe Protocol was usedto confirm the patient's identity and planned procedure. Maximum sterilebarriers including cap, mask, hand hygiene, sterile gloves, sterile gown,large sterile drape and cutaneous antisepsis were used. The skin overlying the existing drainage catheter in the right upperquadrant of the abdomen was sterilely prepped, draped and infiltrated with1 percent lidocaine. A recovery operator image was documented prior to the [...] agree with theabove report. [facility] METABOLIC PANEL (NA, K, CL, CO2, GLUCOSE, BUN, CREATININE, CA)2020-05-31 08:13:00 Test Item Value Reference Range Interpretation Comments NA (test code = 135 mmol/L 135-145 6528410264) K (test code = 4.1 mmol/L 3.5-5 7584703026) CL (test code = 99 mmol/L 98-108 6417911292) CO2 TOTAL (test code = 32 mmol/L 23-31 H 7399623139) AGAP (test code = 2-16 1268248783) BUN (test code = 14 mg/dL 7-23 3731896861) GLUCOSE (test code = 89 mg/dL 70-110 5894659170) CREATININE (test code = 0.67 mg/dL 0.6-1.25 6760771644) CALCIUM (test code = 8.2 mg/dL 8.6-10.6 L 2004678963) eGFR Calculation mL/min/1.73m2 (Non-) (test code = 7725926886) eGFR Calculation mL/min/1.73m2 () (test code = 3696504440) GILBERTO (test code = GILBERTO) Association of [...] tests). Lab Interpretation Abnormal (test code = 21172-3) [facility]2020-10-08 08:13:00 Test Item Value Reference Range Interpretation Comments MAGNESIUM (test code = 3542871448) 1.8 mg/dL 1.7-2.4 Lab Interpretation (test code = Normal 96321-6) [facility]PH[facility]US2020-10-08 08:13:00 Test Item Value Reference Range Interpretation Comments PHOSPHORUS (test code = 4737256230) 5.2 mg/dL 2.5-5 H Lab Interpretation (test code = Abnormal 64858-0) [facility] HospitalCB WITH [id number] 08:05:00 Test Item Value Reference Range Interpretation [...] (test code = 57.9 fL 38.5-51.6 H 91094-1) RDW-CV (test code = 18.7 % 12.1-15.4 H 788-0) PLT (test code = See_Comment [Automated 777-3) message] The sy stem which generated this result transmitted reference range : 150 - 328 10*3/ ?L. The reference r meredith was not used to interpret this result as normal/abnormal . MPV (test code = 10.3 fL 9.8-13 78677-5) NRBC/100 WBC (test See_Comment [Automat ed code = 6983529221) message] The system which generated this result transmitted reference range : 0.0 - 10.0 /100 WBCs. The refer ence range was not u sed to interpret th is result as normal/abnormal . NRBC x10^3 (test code <0.01 See_Comment [Auto mated = 6244515994) message] The s ystem which generated this result transmitted reference range : 10*3/?L. The reference range was not used to interpret this result as normal/abnormal . GRAN MAT (NEUT) % 56.4 % (test code = 770-8) IMM GRAN % (test code 0.50 % = 7200340780) LYMPH % (test code = 26.2 % 736-9) MONO % (test code = 12.2 % 5905-5) EOS % (test code = 4.2 % 713-8) BASO % (test code = 0.5 % 706-2) GRAN MAT x10^3(ANC) 2.31 10*3/uL 1.99-6.95 (test code = 6662265517) IMM GRAN x10^3 (test <0.03 0-0.06 code = 4856447640) LYMPH x10^3 (test code 1.07 10*3/uL 1.09-3.23 L = 731-0) MONO x10^3 (test code 0.50 10*3/uL 0.36-1.02 = 742-7) EOS x10^3 (test code = 0.17 10*3/uL 0.06-0.53 711-2) BASO x10^3 (test code <0.03 0.01-0.09 = 704-7) Lab Interpretation Abnormal (test code = 60232-8) [facility] METABOLIC PANEL (NA, K, CL, CO2, GLUCOSE, BUN, CREATININE, CA)2020-05-30 09:04:00 Test Item Value Reference Range Interpretation Comments NA (test code = 138 mmol/L 135-145 8032726032) K (test code = 4.4 mmol/L 3.5-5 6382080857) CL (test code = 99 mmol/L 98-108 8874050443) CO2 TOTAL (test code = 33 mmol/L 23-31 H 6320603332) AGAP (test code = 2-16 0166668906) BUN (test code = 18 mg/dL 7-23 1287308500) GLUCOSE (test code = 86 mg/dL 70-110 6326233396) CREATININE (test code = 0.61 mg/dL 0.6-1.25 7230542246) CALCIUM (test code = 8.1 mg/dL 8.6-10.6 L 1080301761) eGFR Calculation mL/min/1.73m2 (Non-) (test code = 1719986119) eGFR Calculation mL/min/1.73m2 () (test code = 4666467299) GILBERTO (test code = GILBERTO) Association of [...] tests). Lab Interpretation Abnormal (test code = 22467-8) [facility]2020-10-07 09:04:00 Test Item Value Reference Range Interpretation Comments MAGNESIUM (test code = 6084769371) 2.0 mg/dL 1.7-2.4 Lab Interpretation (test code = Normal 61888-3) [facility]2020-10-07 09:04:00 Test Item Value Reference Range Interpretation Comments PHOSPHORUS (test code = 9755162365) 4.6 mg/dL 2.5-5 Lab Interpretation (test code = Normal 71703-6) [facility] METABOLIC PANEL (NA, K, CL, CO2, GLUCOSE, BUN, CREATININE, CA)2020-05-29 07:31:00 Test Item Value Reference Range Interpretation Comments NA (test code = 135 mmol/L 135-145 3240070841) K (test code = 4.0 mmol/L 3.5-5 7025096391) CL (test code = 100 mmol/L 98-108 7960785140) CO2 TOTAL (test code = 32 mmol/L 23-31 H 2711726769) AGAP (test code = 2-16 6185722861) BUN (test code = 19 mg/dL 7-23 1034674227) GLUCOSE (test code = 86 mg/dL 70-110 1328312571) CREATININE (test code = 0.68 mg/dL 0.6-1.25 4104788578) CALCIUM (test code = 8.0 mg/dL 8.6-10.6 L 5816074998) eGFR Calculation mL/min/1.73m2 (Non-) (test code = 1565095831) eGFR Calculation mL/min/1.73m2 () (test code = 6623511517) GILBERTO (test code = GILBERTO) Association of [...] tests). Lab Interpretation Abnormal (test code = 92942-2) [facility]2020-10-06 07:31:00 Test Item Value Reference Range Interpretation Comments MAGNESIUM (test code = 3423455009) 1.6 mg/dL 1.7-2.4 L Lab Interpretation (test code = Abnormal 30648-5) [facility]2020-10-06 07:31:00 Test Item Value Reference Range Interpretation Comments PHOSPHORUS (test code = 0155296699) 3.5 mg/dL 2.5-5 Lab Interpretation (test code = Normal 18866-1) [facility] HospitalASPIRATE OR ABSCESS CULTURE(AEROBIC/ANAEROBIC) 2020-05-28 12:35:00 Test Item Value Reference Range Interpretation Comments Aspirate or Abscess No aerobic/anaerobic Culture (test code = organisms isolated 31404-5) Gram stain (test code Occasional (Rare) = 664-3) Mononuclear cells [facility] METABOLIC PANEL (NA, K, CL, CO2, GLUCOSE, BUN, CREATININE, CA)2020-05-28 09:36:00 Test Item Value Reference Range Interpretation Comments NA (test code = 136 mmol/L 135-145 6907717589) K (test code = 4.3 mmol/L 3.5-5 7299978317) CL (test code = 102 mmol/L 98-108 6452971926) CO2 TOTAL (test code = 31 mmol/L 23-31 8657717794) AGAP (test code = 2-16 6130196088) BUN (test code = 25 mg/dL 7-23 H 4204534623) GLUCOSE (test code = 87 mg/dL 70-110 9660711871) CREATININE (test code = 0.65 mg/dL 0.6-1.25 4569827253) CALCIUM (test code = 8.2 mg/dL 8.6-10.6 L 6488186037) eGFR Calculation mL/min/1.73m2 (Non-) (test code = 7243145984) eGFR Calculation mL/min/1.73m2 () (test code = 7031604895) GILBERTO (test code = GILBERTO) Association of [...] tests). Lab Interpretation Abnormal (test code = 76045-2) [facility]2020-10-05 09:36:00 Test Item Value Reference Range Interpretation Comments MAGNESIUM (test code = 8618795969) 1.6 mg/dL 1.7-2.4 L Lab Interpretation (test code = Abnormal 65756-2) [facility]2020-10-05 09:36:00 Test Item Value Reference Range Interpretation Comments PHOSPHORUS (test code = 1085263975) 2.6 mg/dL 2.5-5 Lab Interpretation (test code = Normal 49177-7) [facility] (NA, K, CL, CO2, GLUCOSE, BUN, CREATININE, CA)2020-05-27 10:13:00 Test Item Value Reference Range Interpretation Comments NA (test code = 135 mmol/L 135-145 1549129633) K (test code = 3.9 mmol/L 3.5-5 6572121639) CL (test code = 103 mmol/L 98-108 6644493314) CO2 TOTAL (test code = 28 mmol/L 23-31 9041087178) AGAP (test code = 2-16 8556102653) BUN (test code = 20 mg/dL 7-23 7966796687) GLUCOSE (test code = 95 mg/dL 70-110 4895261689) CREATININE (test code = 0.67 mg/dL 0.6-1.25 4685649096) CALCIUM (test code = 8.2 mg/dL 8.6-10.6 L 4202649835) eGFR Calculation mL/min/1.73m2 (Non-) (test code = 8148488146) eGFR Calculation mL/min/1.73m2 () (test code = 4948379757) GILBERTO (test code = GILBERTO) Association of [...] tests). Lab Interpretation Abnormal (test code = 43254-6) [facility]2020-10-04 10:13:00 Test Item Value Reference Range Interpretation Comments MAGNESIUM (test code = 1278816671) 1.5 mg/dL 1.7-2.4 L Lab Interpretation (test code = Abnormal 53620-4) [facility]2020-10-04 10:13:00 Test Item Value Reference Range Interpretation Comments PHOSPHORUS (test code = 0587335090) 3.4 mg/dL 2.5-5 Lab Interpretation (test code = Normal 82648-8) [facility] HospitalIR CHANGE OF ABSCESS [id number] 17:06:27 Successful removal of the left upper quadrant drainage catheter. Replacement of the right upper quadrant catheter into the most superiorsegment of the collection with a new 10 Kuwaiti pigtail catheter.PLAN: This tube should be flushed with 10 of saline twice a day. ?We willcontinue to monitor the output of the catheter while the patient isin-house. If the patient is discharged prior to catheter removal, follow-upwith VIR is recommended in 7-10 ?days. This can be arranged by [id number]. Preliminary Report Dictated by Resident: Johnny Tilley [...] from those actually performing theprocedure. Please see [facility] for sedation time. RADIATION DOSE: 33.0 mGy. TECHNIQUE: The risks, benefits and alternativeswere discussed and informed consentwas obtained. Prior to beginning the procedure, Monroe Protocol was usedto confirm the patient's identity [...] of the pigtailcatheters within the respective collections. [facility], Radiant Results Inft User - [...] from those actually performing theprocedure. Please see [facility] for sedation time.RADIATION DOSE: 33.0 mGy.TECHNIQUE: The risks, benefits andalternatives were discussed and informed consentwas obtained. Prior to beginning the procedure, Monroe Protocol was usedto confirm the patient's identity [...] of the collection with a new 10 [place]i pigtail catheter.PLAN: This tube should be flushed with 10 of saline twice a day. We willcontinue to monitor the output of the catheter while the patient isin-house. If the patient is discharged prior to catheter removal, follow-upwith VIR is recommended in 7-10 days. This can be arranged by [id number].Preliminary Report Dictated by Resident: Johnny Benitez, as teaching physician, was present during the entire procedure and/orduring the botello components.Nixon Damon MD., have reviewed this study and agree with theabove report.[facility] HospitalIR ASPIRATION ABSCESS BULLA OR CYST BY [id number] 17:06:16 Successful ultrasound-guided aspiration of intrahepatic small [...] consentwas obtained. Prior to beginning the procedure, Monroe Protocol was usedto confirm the patient's identity and planned procedure. Maximum sterilebarriers including cap, mask, hand hygiene, sterile gloves, sterile gown,large sterile drape and cutaneous antisepsis were used. The skin overlying the right mid abdomen was sterilely prepped, draped andinfiltrated with 1percent lidocaine. The targeted infrahepatic small collection was then accessed with [id number]-[id number] micropuncture needle using imaging guidance which includedultrasound. The fluid collection was carefully aspirated. A steriledressing was applied. A sample of the fluid was sent for culture ESTIMATED BLOOD LOSS: Minimal. DISCHARGED TO: Recovery and then to inpatient unit. CONDITION: Stable. FINDINGS: Ultrasound imaging of the infrahepatic area demonstrated a very smallanechoic fluid collection. 1 mL yellowviscous-appearing fluid wasaspirated. [facility], Radiant Results Inft User - 05/26/2020 12:07 PM CDTEXAMINATION: IMAGE GUIDED PERCUTANEOUS INFRAHEPATIC FLUID COLLECTIONASPIRATIONHISTORY: 50 years-old; Male;peritoneal abscess.ATTENDEES: Attending radiologist: Nixon Perez; Resident: Dr. Johnny Tilley;Contributing VIR Fellow: Dr. Vance Stafford.SEDATION: No moderate sedation was utilized for this procedure.TECHNIQUE: The risks, benefits and alternatives were discussed and informed consentwas obtained. Prior to beginning the procedure, Monroe Protocol was usedto confirm the patient's identity and planned procedure. Maximum sterilebarriers including cap, mask, hand hygiene, sterile gloves, sterile gown,large sterile drape and cutaneous antisepsis were used. The skin overlying the right mid abdomen was sterilely prepped, draped andinfiltrated with 1 percent lidocaine. The targeted infrahepatic small collection was then accessed with [id number] micropuncture needle using imaging guidance which includ [...] reviewed this study and agree with theabove report.[facility] (NA, K, CL, CO2, GLUCOSE, BUN, CREATININE, CA) 2020-05-26 10:13:00 Test Item Value Reference Range Interpretation Comments NA (test code = 135 mmol/L 135-145 2666742469) K (test code = 4.4 mmol/L 3.5-5 6418367651) CL (test code = 107 mmol/L 98-108 1919239628) CO2 TOTAL (test code = 23 mmol/L 23-31 5209533882) AGAP (test code = 2-16 3759717184) BUN (test code = 18 mg/dL 7-23 5454194066) GLUCOSE (test code = 101 mg/dL 70-110 5018975987) CREATININE (test code = 0.61 mg/dL 0.6-1.25 9080110603) CALCIUM (test code = 8.1 mg/dL 8.6-10.6 L 6826820802) eGFR Calculation mL/min/1.73m2 (Non-) (test code = 0549220059) eGFR Calculation mL/min/1.73m2 () (test code = 9101076361) GILBERTO (test code = GILBERTO) Association of [...] tests). Lab Interpretation Abnormal (test code = 32210-1) [facility] 10[facility]13:00 Test Item Value Reference Range Interpretation Comments MAGNESIUM (test code = 9711054899) 1.7 mg/dL 1.7-2.4 Lab Interpretation (test code = Normal 76675-5) [facility]2020-[facility]-03 10:13:00 Test Item Value Reference Range Interpretation Comments PHOSPHORUS (test code = 1607040237) 3.4 mg/dL 2.5-5 Lab Interpretation (test code = Normal 95464-8) [facility] HospitalXR [id number] 23:20:33 Positioning dictated draining the right upper [...] reviewed this study and agree with theabove report.[facility] (NA, K, CL, CO2, GLUCOSE, BUN, CREATININE, CA)2020-05-25 22:49:00 Test Item Value Reference Range Interpretation Comments NA (test code = 136 mmol/L 135-145 6329894884) K (test code = 4.5 mmol/L 3.5-5 2952323225) CL (test code = 105 mmol/L 98-108 2810773377) CO2 TOTAL (test code = 22 mmol/L 23-31 L 7729343933) AGAP (test code = 2-16 5880005375) BUN (test code = 24 mg/dL 7-23 H 3788959381) GLUCOSE (test code = 101 mg/dL 70-110 3873810700) CREATININE (test code = 0.74 mg/dL 0.6-1.25 8460649691) CALCIUM (test code = 8.6 mg/dL 8.6-10.6 4243471075) eGFR Calculation mL/min/1.73m2 (Non-) (test code = 3708082967) eGFR Calculation mL/min/1.73m2 () (test code = 5429791819) GILBERTO (test code = GILBERTO) Association of [...] tests). Lab Interpretation Abnormal (test code = 98635-4) [facility]2020-[facility]02 22:11:00 Test Item Value Reference Range Interpretation Comments MAGNESIUM (test code = 6725488277) 2.0 mg/dL 1.7-2.4 Lab Interpretation (test code = Normal 91238-4) [facility]2020-10-02 22:11:00 Test Item Value Reference Range Interpretation Comments PHOSPHORUS (test code = 0321482002) 3.1 mg/dL 2.5-5 Lab Interpretation (test code = Normal 55245-5) [facility]CB WITH [id number] 21:51:00 Test Item Value Reference Range Interpretation Comments WBC (test code = See_Comment [Automated 9790-2) message] The sy stem which generated this result transmitted reference range : 4.20 - 10.70 10*3/?L. The reference range was not used to interpret this result as normal/abnormal . RBC (test code = See_Comment [Automated 439-8) message] The sy stem which [...] (test code = 53.1 fL 38.5-51.6 H 68787-9) RDW-CV (test code = 17.9 % 12.1-15.4 H 788-0) PLT (test code = See_Comment [Automated 777-3) message] The sy stem which generated this result transmitted reference range : 150 - 328 10*3/ ?L. The reference r meredith was not used to interpret this result as normal/abnormal . MPV (test code = 9.1 fL 9.8-13 L 48790-2) NRBC/100 WBC (test See_Comment [Automat ed code = 9259756555) message] The system which generated this result transmitted reference range : 0.0 - 10.0 /100 WBCs. The refer ence range was not u sed to interpret th is result as normal/abnormal . NRBC x10^3 (test code <0.01 See_Comment [Auto mated = 9113417330) message] The s ystem which generated this result transmitted reference range : 10*3/?L. The reference range was not used to interpret this result as normal/abnormal . GRAN MAT (NEUT) % 73.4 % (test code = 770-8) IMM GRAN % (test code 0.50 % = 0049274989) LYMPH % (test code = 17.9 % 736-9) MONO % (test code = 5.2 % 5905-5) EOS % (test code = 2.5 % 713-8) BASO % (test code = 0.5 % 706-2) GRAN MAT x10^3(ANC) 4.05 10*3/uL 1.99-6.95 (test code = 2161533163) IMM GRAN x10^3 (test 0.03 10*3/uL 0-0.06 code = 1408209578) LYMPH x10^3 (test code 0.99 10*3/uL 1.09-3.23 L = 731-0) MONO x10^3 (test code 0.29 10*3/uL 0.36-1.02 L = 742-7) EOS x10^3 (test code = 0.14 10*3/uL 0.06-0.53 711-2) BASO x10^3 (test code 0.03 10*3/uL 0.01-0.09 = 704-7) Lab Interpretation Abnormal (test code = 25134-4) [facility] METABOLIC PANEL (NA, K, CL, CO2, GLUCOSE, BUN, CREATININE, CA)2020-05-25 09:24:00 Test Item Value Reference Range Interpretation Comments NA (test code = 135 mmol/L 135-145 7402819890) K (test code = 5.3 mmol/L 3.5-5 H Slight 0327646520) hemolysis CL (test code = 104 mmol/L 98-108 8142312132) CO2 TOTAL (test code 24 mmol/L 23-31 = 0771559593) AGAP (test code = 2-16 7414710746) BUN (test code = 22 mg/dL 7-23 Slight 3159946895) hemolysis GLUCOSE (test code = 96 mg/dL 70-110 4066163413) CREATININE (test code 0.73 mg/dL 0.6-1.25 = 5403356305) CALCIUM (test code = 8.2 mg/dL 8.6-10.6 L 4894559649) eGFR Calculation mL/min/1.73m2 (Non-) (test code = 6716670553) eGFR Calculation mL/min/1.73m2 () (test code = 8731569425) GILBERTO (test code = GILBERTO) Association of [...] tests). Lab Interpretation Abnormal (test code = 18726-3) [facility]2020-[facility]-02 09:24:00 Test Item Value Reference Range Interpretation Comments MAGNESIUM (test code = 9791517203) 2.3 mg/dL 1.7-2.4 Lab Interpretation (test code = Normal 02865-4) [facility]2020-10-02 09:24:00 Test Item Value Reference Range Interpretation Comments PHOSPHORUS (test code = 2886122043) 3.4 mg/dL 2.5-5 Lab Interpretation (test code = Normal 43520-4) [facility] (NA, K, CL, CO2, GLUCOSE, BUN, CREATININE, CA)2020-05-24 21:00:00 Test Item Value Reference Range Interpretation Comments NA (test code = 135 mmol/L 135-145 2556853518) K (test code = 4.3 mmol/L 3.5-5 9068044033) CL (test code = 102 mmol/L 98-108 3332552735) CO2 TOTAL (test code = 25 mmol/L 23-31 2144877352) AGAP (test code = 2-16 0181992994) BUN (test code = 20 mg/dL 7-23 6266074495) GLUCOSE (test code = 102 mg/dL 70-110 0520314124) CREATININE (test code 0.97 mg/dL 0.6-1.25 = 3724363057) CALCIUM (test code = 9.0 mg/dL 8.6-10.6 8013954633) eGFR Calculation mL/min/1.73m2 (Non-) (test code = 4438231334) eGFR Calculation mL/min/1.73m2 () (test code = 8762325554) GILBERTO (test code = GILBERTO) Association of [...] or urine or abnormalities in imaging tests). [facility]2020-[facility]-01 21:00:00 Test Item Value Reference Range Interpretation Comments MAGNESIUM (test code = 7487680328) 1.5 mg/dL 1.7-2.4 L Lab Interpretation (test code = Abnormal 70448-8) [facility]2020-10-01 20:58:00 Test Item Value Reference Range Interpretation Comments PHOSPHORUS (test code = 5359024649) 3.3 mg/dL 2.5-5 Lab Interpretation (test code = Normal 83071-6) [facility]CB with [id number] 11:31:00 Test Item Value Reference Range Interpretation Comments WBC (test code = See_Comment [Automated 2457-2) message] The sy stem which generated this result transmitted reference range : 4.20 - 10.70 10*3/?L. The reference range was not used to interpret this result as normal/abnormal . RBC (test code = See_Comment L [Automated 562-5) message] The sy stem which generated this [...] (test code = 51.9 fL 38.5-51.6 H 79013-8) RDW-CV (test code = 17.6 % 12.1-15.4 H 788-0) PLT (test code = See_Comment H [Automated 777-3) message] The sy stem which generated this result transmitted reference range : 150 - 328 10*3/ ?L. The reference r meredith was not used to interpret this result as normal/abnormal . MPV (test code = 9.0 fL 9.8-13 L 18339-8) NRBC/100 WBC (test See_Comment [Automat ed code = 6669199204) message] The system which generated this result transmitted reference range : 0.0 - 10.0 /100 WBCs. The refer ence range was not u sed to interpret th is result as normal/abnormal . NRBC x10^3 (test code <0.01 See_Comment [Auto mated = 2589406517) message] The s ystem which generated this result transmitted reference range : 10*3/?L. The reference range was not used to interpret this result as normal/abnormal . GRAN MAT (NEUT) % 66.0 % (test code = 770-8) IMM GRAN % (test code 0.20 % = 6757297436) LYMPH % (test code = 20.3 % 736-9) MONO % (test code = 10.4 % 5905-5) EOS % (test code = 2.6 % 713-8) BASO % (test code = 0.5 % 706-2) GRAN MAT x10^3(ANC) 4.33 10*3/uL 1.99-6.95 (test code = 9841037769) IMM GRAN x10^3 (test <0.03 0-0.06 code = 6785874800) LYMPH x10^3 (test code 1.33 10*3/uL 1.09-3.23 = 731-0) MONO x10^3 (test code 0.68 10*3/uL 0.36-1.02 = 742-7) EOS x10^3 (test code = 0.17 10*3/uL 0.06-0.53 711-2) BASO x10^3 (test code 0.03 10*3/uL 0.01-0.09 = 704-7) Lab Interpretation Abnormal (test code = 32764-8) [facility] W [id number] 17:39:05 Since 05/19/2020 slight increase in size [...] perihepatic are unchanged with drains insitu as above.[facility] (NA, K, CL, CO2, Glucose, BUN, Creatinine, CA)2020-05-23 10:25:00 Test Item Value Reference Range Interpretation Comments NA (test code = 135 mmol/L 135-145 4231821486) K (test code = 3.7 mmol/L 3.5-5 3486545345) CL (test code = 105 mmol/L 98-108 7661655863) CO2 TOTAL (test code = 24 mmol/L 23-31 4515945698) AGAP (test code = 2-16 8225459617) BUN (test code = 19 mg/dL 7-23 5341773120) GLUCOSE (test code = 117 mg/dL 70-110 H 5298103798) CREATININE (test code = 0.74 mg/dL 0.6-1.25 4201527501) CALCIUM (test code = 7.3 mg/dL 8.6-10.6 L 1662967166) eGFR Calculation mL/min/1.73m2 (Non-) (test code = 6814343612) eGFR Calculation mL/min/1.73m2 () (test code = 3826794141) GILBERTO (test code = GILBERTO) Association of [...] tests). Lab Interpretation Abnormal (test code = 16107-3) [facility]CORON[facility]IRUS COVID-19 [id number] 07:40:00 Test Item Value Reference Range Interpretation Comments SARS-CoV-2 Rapid ID NOW Not Detected Not Detected (test code = 24249-4) GILBERTO (test code = GILBERTO) ID NOW COVID-19 Assay is an isothermal nucleic acid amplification test intended for the qualitative detection of nucleic acid from SARS-CoV-2 viral RNA in nasopharyngeal (JTAC) specimens. It is used under Emergency Use [...] indicated. Lab Interpretation Normal (test code = 95914-4) [facility] HospitalUrinalysis2020-09-29 22:41:00 Test Item Value Reference Range Interpretation Comments APPEARANCE (test code = Hazy Clear A 0427830877) COLOR (test code = Yellow Yellow 8738768031) PH (test code = 4.8-8.0 7714846213) SP GRAVITY (test code = 1.003-1.030 2746652649) GLU U QUAL (test code = Normal Normal 0319227205) BLOOD (test code = Negative Negative 6507402050) KETONES (test code = Negative Negative 6789761776) PROTEIN (test code = 30 mg/dL Negative A 2887-8) UROBILIN (test code = Normal Normal 4345766456) BILIRUBIN (test code = Negative Negative 6652865402) NITRITE (test code = Negative Negative 0558584774) LEUK ROGER (test code = Negative Negative 6100373230) RBC/HPF (test code = See_Comment H [Autom ated message] 7353273969) The system [employer]me generated this result transmitted ref erence range: 0 - 3 HP F. The reference range was not used to int erpret this result as normal/abnormal . WBC/HPF (test code = See_Comment H [Autom ated message] 7126267592) The system [employer] generated this result transmitted ref erence range: 0 - 5 HP F. The reference range was not used to int erpret this result as normal/abnormal . BACTERIA (test code = Negative Negative 4169952804) MUCOUS (test code = Moderate Negative LPF A 6319942476) SQ EPITH (test code = See_Comment [Auto mated message] 4689769749) The system [employer] generated this result transmitted ref erence range: <=2 HPF. The reference range was not used to int erpret this result as normal/abnormal . CA OXALATE (test code = See_Comment H [Au tomated message] 2900189947) The system [employer] generated this result transmitted ref erence range: <=1 HPF. The reference range was not used to int erpret this result as normal/abnormal . HYAL CAST (test code = See_Comment H [Aut omated message] 8513267199) The system [employer]me generated this result transmitted ref erence range: <=2 LPF. The reference range was not used to int erpret this result as normal/abnormal . Lab Interpretation (test Abnormal code = 16419-5) [facility] Metabolic Panel (NA, K, CL, CO2, GLUCOSE, BUN, CREATININE, CA)2020-05-22 21:46:00 Test Item Value Reference Range Interpretation Comments NA (test code = 134 mmol/L 135-145 L 7185950885) K (test code = 5.0 mmol/L 3.5-5 1215293079) CL (test code = 103 mmol/L 98-108 5863730229) CO2 TOTAL (test code = 25 mmol/L 23-31 1497899625) AGAP (test code = 2-16 6116258897) BUN (test code = 24 mg/dL 7-23 H 8242296154) GLUCOSE (test code = 102 mg/dL 70-110 0411398935) CREATININE (test code = 0.87 mg/dL 0.6-1.25 2753193056) CALCIUM (test code = 9.2 mg/dL 8.6-10.6 0169602682) eGFR Calculation mL/min/1.73m2 (Non-) (test code = 1958242395) eGFR Calculation mL/min/1.73m2 () (test code = 6739282870) GILBERTO (test code = GILBERTO) Association of [...] tests). Lab Interpretation Abnormal (test code = 29031-8) [facility] HospitalHepatic Function Panel (ALB, T.PRO, BILI T, BU/BC, ALT, AST, ALK PHOS)2020-05-22 21:46:00 Test Item Value Reference Range Interpretation Comments TOTAL BILI (test code = 4693594397) 0.4 mg/dL 0.1-1.1 BILI UNCON (test code = 0026648522) 0.2 mg/dL 0.1-1.1 BILI CONJ (test code = 0845226514) 0.0 mg/dL 0-0.3 T PROTEIN (test code = 6143524725) 6.5 g/dL 6.3-8.2 ALBUMIN (test code = 1512084737) 3.6 g/dL 3.5-5 ALK PHOS (test code = 4396119617) 96 U/L 34-122 ALTv (test code = 1742-6) 22 U/L 5-50 AST(SGOT) (test code = 1715894459) 28 U/L 13-40 Lab Interpretation (test code = Normal 90939-4) [facility] HospitalLipase [id number] 21:46:00 Test Item Value Reference Range Interpretation Comments LIPASE (test code = 5914779559) 95 U/L 0-220 Lab Interpretation (test code = Normal 85629-6) [facility] HospitalaPTT2020-09-29 21:46:00 Test Item Value Reference Range Interpretation Comments APTT Patient (test code = See_Comment [ Automated message] 3173-2) The system [employer] generated this result transmitted ref erence range: 26 - 36 Seconds. The re ference range was not u sed to interpret this result as normal/abnor mal. Lab Interpretation (test Normal code = 02830-1) [facility] HospitalProthrombin Time (PT) / [id number] 21:46:00 Test Item Value Reference Range Interpretation [...] tions. Lab Interpretation (test Abnormal code = 73822-7) [facility] HospitalCBC with [id number] 21:41:00 Test Item Value Reference Range Interpretation [...] (test code = 53.0 fL 38.5-51.6 H 50462-2) RDW-CV (test code = 17.6 % 12.1-15.4 H 788-0) PLT (test code = See_Comment H [Automated 777-3) message] The sy stem which generated this result transmitted reference range : 150 - 328 10*3/ ?L. The reference r meredith was not used to interpret this result as normal/abnormal . MPV (test code = 9.1 fL 9.8-13 L 81320-2) NRBC/100 WBC (test See_Comment [Automat ed code = 0866698986) message] The system which generated this result transmitted reference range : 0.0 - 10.0 /100 WBCs. The refer ence range was not u sed to interpret th is result as normal/abnormal . NRBC x10^3 (test code <0.01 See_Comment [Auto mated = 1322221377) message] The s ystem which generated this result transmitted reference range : 10*3/?L. The reference range was not used to interpret this result as normal/abnormal . GRAN MAT (NEUT) % 77.4 % (test code = 770-8) IMM GRAN % (test code 0.50 % = 4919126660) LYMPH % (test code = 15.8 % 736-9) MONO % (test code = 4.9 % 5905-5) EOS % (test code = 0.8 % 713-8) BASO % (test code = 0.6 % 706-2) GRAN MAT x10^3(ANC) 5.04 10*3/uL 1.99-6.95 (test code = 1788347916) IMM GRAN x10^3 (test 0.03 10*3/uL 0-0.06 code = 7134614083) LYMPH x10^3 (test code 1.03 10*3/uL 1.09-3.23 L = 731-0) MONO x10^3 (test code 0.32 10*3/uL 0.36-1.02 L = 742-7) EOS x10^3 (test code = 0.05 10*3/uL 0.06-0.53 L 711-2) BASO x10^3 (test code 0.04 10*3/uL 0.01-0.09 = 704-7) Lab Interpretation Abnormal (test code = 13606-2) [facility] [id number] 21:19:32CHEST ONE VIEW HISTORY: ?Weakness TECHNIQUE: ?AP [...] the left costophrenic angle suggests a leftpleural effusion.[facility] HospitalCOVID-19 (ID NOW RAPID TESTING) 2020-05-20 10:09:00 Test Item Value Reference Range Interpretation Comments SARS-CoV-2 Rapid ID NOW Not Detected Not Detected (test code = 95671-4) GILBERTO (test code = GILBERTO) ID NOW COVID-19 Assay is an isothermal nucleic acid amplification test intended for the qualitative detection of nucleic acid from SARS-CoV-2 viral RNA in nasopharyngeal (JTAC) specimens. It is used under Emergency Use [...] indicated. Lab Interpretation Normal (test code = 47891-7) [facility] HospitalURINALYSIS2020-09-27 10:07:00 Test Item Value Reference Range Interpretation Comments APPEARANCE (test code = Clear Clear 7259471202) COLOR (test code = Yellow Yellow 1959063314) PH (test code = 4.8-8.0 3865379099) SP GRAVITY (test code = 1.003-1.030 H 9738085260) GLU U QUAL (test code = Normal Normal 5010057396) BLOOD (test code = Negative Negative 2684757547) KETONES (test code = Negative Negative 9279281829) PROTEIN (test code = Negative Negative 2887-8) UROBILIN (test code = Normal Normal 4832107745) BILIRUBIN (test code = Negative Negative 2963090928) NITRITE (test code = Negative Negative 5872786409) LEUK ROGER (test code = Negative Negative 9302764380) RBC/HPF (test code = See_Comment [Autom ated message] 3725248204) The system [employer] generated this result transmitted ref erence range: 0 - 3 HP F. The reference range was not used to int erpret this result as normal/abnormal . WBC/HPF (test code = See_Comment [Autom ated message] 1080203090) The system [employer] generated this result transmitted ref erence range: 0 - 5 HP F. The reference range was not used to int erpret this result as normal/abnormal . BACTERIA (test code = Negative Negative 6700064446) MUCOUS (test code = Slight Negative LPF A 8448760131) SQ EPITH (test code = See_Comment [Auto mated message] 8239102731) The system [employer] generated this result transmitted ref erence range: <=2 HPF. The reference range was not used to int erpret this result as normal/abnormal . HYAL CAST (test code = See_Comment H [Aut omated message] 6900336054) The system [employer] generated this result transmitted ref erence range: <=2 LPF. The reference range was not used to int erpret this result as normal/abnormal . Lab Interpretation (test Abnormal code = 64844-2) [facility] HospitalCT ABDOMEN PELVIS W [id number] 04:28:40Impression: 1. Multiple rim-enhancing fluid and gas [...] effusions, possiblyloculated on the left. RL: 2824AFC: [id number] End of Report Exam: CT Abdomen and [...] pleural effusions, possiblyloculated on the left.RL: 2824AFC: [id number] of Report [facility] SystemsTIMMY [id number] 03:44:00 Test Item Value Reference Range Interpretation Comments TROPONIN I (test 0.001 ng/mL See_Comment [Automated code = 2027646235) message] The system which generated this result [...] ? Lab Interpretation Normal (test code = 62026-6) [facility]. METABOLIC PANEL (21473)2020-05-20 03:33:00 Test Item Value Reference Range Interpretation Comments NA (test code = 138 mmol/L 135-145 2392857710) K (test code = 5.3 mmol/L 3.5-5 H 8668225236) CL (test code = 100 mmol/L 98-108 4012756129) CO2 TOTAL (test code = 28 mmol/L 23-31 9478329963) AGAP (test code = 2-16 5403473357) BUN (test code = 27 mg/dL 7-23 H 0696720479) GLUCOSE (test code = 90 mg/dL 70-110 1907411101) CREATININE (test code = 1.25 mg/dL 0.6-1.25 8086882950) TOTAL BILI (test code = 0.2 mg/dL 0.1-1.2 3934108946) CALCIUM (test code = 9.9 mg/dL 8.6-10.6 9074672664) T PROTEIN (test code = 6.8 g/dL 6.3-8.2 3428146049) ALBUMIN (test code = 3.7 g/dL 3.5-5 2049602319) ALK PHOS (test code = 122 U/L 34-122 9659643700) ALTv (test code = 26 U/L 5-50 1742-6) AST(SGOT) (test code = 24 U/L 13-40 9009883015) eGFR Calculation mL/min/1.73m2 (Non-) (test code = 6671843174) eGFR Calculation mL/min/1.73m2 () (test code = 5527868779) GILBERTO (test code = GILBERTO) Association of [...] tests). Lab Interpretation Abnormal (test code = 90360-7) [facility] HospitalLIPASE2020-09-27 03:33:00 Test Item Value Reference Range Interpretation Comments LIPASE (test code = 7271647761) 223 U/L 0-220 H Lab Interpretation (test code = Abnormal 64467-5) [facility] HospitalMAGNESIUM2020-09-27 03:33:00 Test Item Value Reference Range Interpretation Comments MAGNESIUM (test code = 2450422618) 1.7 mg/dL 1.7-2.4 Lab Interpretation (test code = Normal 86393-8) [facility] HospitalCB WITH [id number] 03:17:00 Test Item Value Reference Range Interpretation [...] RDW-SD (test code = 49.9 fL 38.5-51.6 84329-9) RDW-CV (test code = 17.2 % 12.1-15.4 H 788-0) PLT (test code = See_Comment H [Automated 777-3) message] The sy stem which generated this result transmitted reference range : 150 - 328 10*3/ ?L. The reference r meredith was not used to interpret this result as normal/abnormal . MPV (test code = 9.3 fL 9.8-13 L 11758-1) NRBC/100 WBC (test See_Comment [Automat ed code = 2964243229) message] The system which generated this result transmitted reference range : 0.0 - 10.0 /100 WBCs. The refer ence range was not u sed to interpret th is result as normal/abnormal . NRBC x10^3 (test code <0.01 See_Comment [Auto mated = 8211328586) message] The s ystem which generated this result transmitted reference range : 10*3/?L. The reference range was not used to interpret this result as normal/abnormal . GRAN MAT (NEUT) % 78.5 % (test code = 770-8) IMM GRAN % (test code 0.50 % = 6375765567) LYMPH % (test code = 11.6 % 736-9) MONO % (test code = 8.4 % 5905-5) EOS % (test code = 0.6 % 713-8) BASO % (test code = 0.4 % 706-2) GRAN MAT x10^3(ANC) 6.16 10*3/uL 1.99-6.95 (test code = 4735095322) IMM GRAN x10^3 (test 0.04 10*3/uL 0-0.06 code = 7402792959) LYMPH x10^3 (test code 0.91 10*3/uL 1.09-3.23 L = 731-0) MONO x10^3 (test code 0.66 10*3/uL 0.36-1.02 = 742-7) EOS x10^3 (test code = 0.05 10*3/uL 0.06-0.53 L 711-2) BASO x10^3 (test code 0.03 10*3/uL 0.01-0.09 = 704-7) Lab Interpretation Abnormal (test code = 16109-2) [facility] HospitalBODY FLUID CULTURE(AEROBIC/ANAEROBIC) 2020-05-10 15:19:00 Test Item Value Reference Range Interpretation Comments BODY FLUID CULT 2+ Clostridioides (test code = (Clostridium) difficile 611-4) Gram stain (test Few PMNs or Mononuclear code = 664-3) cells observed [facility] HospitalBasi Metabolic Panel (NA, K, CL, CO2, GLUCOSE, BUN, CREATININE, CA)2020-05-10 10:27:00 Test Item Value Reference Range Interpretation Comments NA (test code = 132 mmol/L 135-145 L 5380981143) K (test code = 4.0 mmol/L 3.5-5 7087026686) CL (test code = 97 mmol/L 98-108 L 0339964660) CO2 TOTAL (test code = 28 mmol/L 23-31 9883270542) AGAP (test code = 2-16 8371858762) BUN (test code = 12 mg/dL 7-23 3272268850) GLUCOSE (test code = 128 mg/dL 70-110 H 3995808951) CREATININE (test code = 0.63 mg/dL 0.6-1.25 8836822990) CALCIUM (test code = 8.7 mg/dL 8.6-10.6 4797486264) eGFR Calculation mL/min/1.73m2 (Non-) (test code = 3071821285) eGFR Calculation mL/min/1.73m2 () (test code = 2935843933) GILBERTO (test code = GILBERTO) Association of [...] tests). Lab Interpretation Abnormal (test code = 77569-5) [facility] HospitalMagnesium Llqnd7032-06-61 10:27:00 Test Item Value Reference Range Interpretation Comments MAGNESIUM (test code = 9603619973) 1.7 mg/dL 1.7-2.4 Lab Interpretation (test code = Normal 27274-0) [facility] Tzljm4525-81-24 10:27:00 Test Item Value Reference Range Interpretation Comments PHOSPHORUS (test code = 1421023942) 3.4 mg/dL 2.5-5 Lab Interpretation (test code = Normal 60655-2) [facility] with Nzmvxjvrrrwy5342-38-37 10:03:00 Test Item Value Reference Range Interpretation [...] RDW-SD (test code = 47.3 fL 38.5-51.6 05986-2) RDW-CV (test code = 15.7 % 12.1-15.4 H 788-0) PLT (test code = See_Comment H [Automated 777-3) message] The sy stem which generated this result transmitted reference range : 150 - 328 10*3/ ?L. The reference r meredith was not used to interpret this result as normal/abnormal . MPV (test code = 8.9 fL 9.8-13 L 21893-1) NRBC/100 WBC (test See_Comment [Automat ed code = 6952468242) message] The system which generated this result transmitted reference range : 0.0 - 10.0 /100 WBCs. The refer ence range was not u sed to interpret th is result as normal/abnormal . NRBC x10^3 (test code <0.01 See_Comment [Auto mated = 0241402627) message] The s ystem which generated this result transmitted reference range : 10*3/?L. The reference range was not used to interpret this result as normal/abnormal . GRAN MAT (NEUT) % 80.0 % (test code = 770-8) IMM GRAN % (test code 0.50 % = 2100124313) LYMPH % (test code = 11.8 % 736-9) MONO % (test code = 6.6 % 5905-5) EOS % (test code = 0.8 % 713-8) BASO % (test code = 0.3 % 706-2) GRAN MAT x10^3(ANC) 6.98 10*3/uL 1.99-6.95 H (test code = 3010694282) IMM GRAN x10^3 (test 0.04 10*3/uL 0-0.06 code = 3566968274) LYMPH x10^3 (test code 1.03 10*3/uL 1.09-3.23 L = 731-0) MONO x10^3 (test code 0.58 10*3/uL 0.36-1.02 = 742-7) EOS x10^3 (test code = 0.07 10*3/uL 0.06-0.53 711-2) BASO x10^3 (test code 0.03 10*3/uL 0.01-0.09 = 704-7) Lab Interpretation Abnormal (test code = 43217-9) [facility] Metabolic Panel (NA, K, CL, CO2, GLUCOSE, BUN, CREATININE, CA)2020-05-09 11:07:00 Test Item Value Reference Range Interpretation Comments NA (test code = 133 mmol/L 135-145 L 4774542106) K (test code = 4.4 mmol/L 3.5-5 7816859154) CL (test code = 100 mmol/L 98-108 6087533422) CO2 TOTAL (test code = 25 mmol/L 23-31 5867691818) AGAP (test code = 2-16 5617516036) BUN (test code = 14 mg/dL 7-23 2482202409) GLUCOSE (test code = 93 mg/dL 70-110 1967041792) CREATININE (test code = 0.66 mg/dL 0.6-1.25 7485948896) CALCIUM (test code = 8.3 mg/dL 8.6-10.6 L 5994465973) eGFR Calculation mL/min/1.73m2 (Non-) (test code = 9236906054) eGFR Calculation mL/min/1.73m2 () (test code = 4350408667) GILBERTO (test code = GILBERTO) Association of [...] tests). Lab Interpretation Abnormal (test code = 14049-1) [facility] Owdkw4925-32-70 11:07:00 Test Item Value Reference Range Interpretation Comments MAGNESIUM (test code = 9141801650) 1.8 mg/dL 1.7-2.4 Lab Interpretation (test code = Normal 89206-8) [facility] Yxubi2329-60-62 11:07:00 Test Item Value Reference Range Interpretation Comments PHOSPHORUS (test code = 2603831872) 3.2 mg/dL 2.5-5 Lab Interpretation (test code = Normal 90121-8) [facility] with Zfmduabiohkh3327-96-73 10:42:00 Test Item Value Reference Range Interpretation [...] RDW-SD (test code = 45.9 fL 38.5-51.6 85025-7) RDW-CV (test code = 15.4 % 12.1-15.4 788-0) PLT (test code = See_Comment H [Automated 777-3) message] The sy stem which generated this result transmitted reference range : 150 - 328 10*3/ ?L. The reference r meredith was not used to interpret this result as normal/abnormal . MPV (test code = 8.9 fL 9.8-13 L 80662-8) NRBC/100 WBC (test See_Comment [Automat ed code = 6968475091) message] The system which generated this result transmitted reference range : 0.0 - 10.0 /100 WBCs. The refer ence range was not u sed to interpret th is result as normal/abnormal . NRBC x10^3 (test code <0.01 See_Comment [Auto mated = 2542727462) message] The s ystem which generated this result transmitted reference range : 10*3/?L. The reference range was not used to interpret this result as normal/abnormal . GRAN MAT (NEUT) % 77.7 % (test code = 770-8) IMM GRAN % (test code 0.50 % = 3178784580) LYMPH % (test code = 11.8 % 736-9) MONO % (test code = 8.4 % 5905-5) EOS % (test code = 1.4 % 713-8) BASO % (test code = 0.2 % 706-2) GRAN MAT x10^3(ANC) 6.48 10*3/uL 1.99-6.95 (test code = 1598453921) IMM GRAN x10^3 (test 0.04 10*3/uL 0-0.06 code = 7359580978) LYMPH x10^3 (test code 0.98 10*3/uL 1.09-3.23 L = 731-0) MONO x10^3 (test code 0.70 10*3/uL 0.36-1.02 = 742-7) EOS x10^3 (test code = 0.12 10*3/uL 0.06-0.53 711-2) BASO x10^3 (test code <0.03 0.01-0.09 = 704-7) Lab Interpretation Abnormal (test code = 77982-5) [facility] Metabolic Panel (NA, K, CL, CO2, GLUCOSE, BUN, CREATININE, CA)2020-05-08 12:18:00 Test Item Value Reference Range Interpretation Comments NA (test code = 136 mmol/L 135-145 1708091409) K (test code = 4.1 mmol/L 3.5-5 0765653635) CL (test code = 102 mmol/L 98-108 4958403707) CO2 TOTAL (test code = 26 mmol/L 23-31 9977970195) AGAP (test code = 2-16 1351650792) BUN (test code = 18 mg/dL 7-23 7512830366) GLUCOSE (test code = 99 mg/dL 70-110 3023538765) CREATININE (test code = 0.63 mg/dL 0.6-1.25 2679692694) CALCIUM (test code = 8.4 mg/dL 8.6-10.6 L 1736267392) eGFR Calculation mL/min/1.73m2 (Non-) (test code = 7333480896) eGFR Calculation mL/min/1.73m2 () (test code = 8646802854) GILBERTO (test code = GILBERTO) Association of [...] tests). Lab Interpretation Abnormal (test code = 96659-5) [facility] Hajzh7792-95-14 12:18:00 Test Item Value Reference Range Interpretation Comments MAGNESIUM (test code = 7940869868) 1.8 mg/dL 1.7-2.4 Lab Interpretation (test code = Normal 02996-5) [facility] Okgxv5861-58-17 12:18:00 Test Item Value Reference Range Interpretation Comments PHOSPHORUS (test code = 5414716339) 3.2 mg/dL 2.5-5 Lab Interpretation (test code = Normal 07187-2) [facility] with Urkpnduasaxk9693-47-70 11:50:00 Test Item Value Reference Range Interpretation [...] RDW-SD (test code = 46.9 fL 38.5-51.6 81348-1) RDW-CV (test code = 15.2 % 12.1-15.4 788-0) PLT (test code = See_Comment H [Automated 777-3) message] The sy stem which generated this result transmitted reference range : 150 - 328 10*3/ ?L. The reference r meredith was not used to interpret this result as normal/abnormal . MPV (test code = 9.0 fL 9.8-13 L 57298-3) NRBC/100 WBC (test See_Comment [Automat ed code = 0858817335) message] The system which generated this result transmitted reference range : 0.0 - 10.0 /100 WBCs. The refer ence range was not u sed to interpret th is result as normal/abnormal . NRBC x10^3 (test code <0.01 See_Comment [Auto mated = 9150748314) message] The s ystem which generated this result transmitted reference range : 10*3/?L. The reference range was not used to interpret this result as normal/abnormal . GRAN MAT (NEUT) % 76.3 % (test code = 770-8) IMM GRAN % (test code 0.70 % = 7340071849) LYMPH % (test code = 13.3 % 736-9) MONO % (test code = 8.4 % 5905-5) EOS % (test code = 1.1 % 713-8) BASO % (test code = 0.2 % 706-2) GRAN MAT x10^3(ANC) 6.93 10*3/uL 1.99-6.95 (test code = 5288729531) IMM GRAN x10^3 (test 0.06 10*3/uL 0-0.06 code = 7313847517) LYMPH x10^3 (test code 1.21 10*3/uL 1.09-3.23 = 731-0) MONO x10^3 (test code 0.76 10*3/uL 0.36-1.02 = 742-7) EOS x10^3 (test code = 0.10 10*3/uL 0.06-0.53 711-2) BASO x10^3 (test code <0.03 0.01-0.09 = 704-7) Lab Interpretation Abnormal (test code = 12919-0) [facility] HospitalIR [facility] BY CATHETER PERITONEAL OR TNTHAKOEMIUVGRZ2393-29-56 13:09:04 Technically successful drainage catheter placement in [...] of the tract was performed. A 14 [place] locking pigtail michael inagecatheter was placed in the collection and samples were sent for laboratoryanalysis. The left upper quadrant collection was identified under ultrasound and CTguidance. A 17-gauge coaxial needle wasadvanced into the collection. AnAmplatz wire was advanced into the collection over the needle and serialdilatation of the tract was performed. A 12 [place] locking pigtail drainagecatheter was placed within the collection and samples were sent forlaboratory analysis. The right lower quadrant collectionwas identified under ultrasound and CTguidance. A 17-gauge coaxial needle was advanced into the colle ction.Serial dilatation was performed over the Amplatz wire. A 14 [place] lockingpigtail drainage catheter was placed within the [...] was obtained. Prior to beginning the procedure, [place] Protocolwas performed to confirm the patient's identity [...] of the tract was performed. A 14 [place] lockingpigtail drainagecatheter was placed in the collection and samples were sent for laboratoryanalysis.The left upper quadrant collection was identified under ultrasound and CTguidance. A 17-gauge coaxial needle was advanced into the collection. AnAmplatz wire was advanced into the collection over the needle and serialdilatation of the tract was performed. A 12 [place] locking pigtail drainagecatheter wasplaced within the collection and samples were sent forlaboratory analysis.The right lower quadrant collection was identified under ultrasound and CTguidance. A 17-gauge coaxial needle was advanced intothe collection.Serial dilatation was performed over the Amplatz wire. A 14 [place]i lockingpigtail drainage catheter was placed within the [...] during the entire procedure and/orduring the botello components.[facility] Metabolic Panel (NA, K, CL, CO2, GLUCOSE, BUN, CREATININE, CA) 2020-05-07 11:49:00 Test Item Value Reference Range Interpretation Comments NA (test code = 132 mmol/L 135-145 L 6148237702) K (test code = 4.0 mmol/L 3.5-5 7985713834) CL (test code = 101 mmol/L 98-108 4739352302) CO2 TOTAL (test code = 23 mmol/L 23-31 8541085212) AGAP (test code = 2-16 8978394173) BUN (test code = 21 mg/dL 7-23 8363647193) GLUCOSE (test code = 98 mg/dL 70-110 1531426489) CREATININE (test code = 0.65 mg/dL 0.6-1.25 9384797157) CALCIUM (test code = 8.4 mg/dL 8.6-10.6 L 2927388329) eGFR Calculation mL/min/1.73m2 (Non-) (test code = 0937887777) eGFR Calculation mL/min/1.73m2 () (test code = 4034223143) GILBERTO (test code = GILBERTO) Association of [...] tests). Lab Interpretation Abnormal (test code = 78546-7) [facility] Alvzb6955-60-85 11:49:00 Test Item Value Reference Range Interpretation Comments MAGNESIUM (test code = 9052807756) 1.5 mg/dL 1.7-2.4 L Lab Interpretation (test code = Abnormal 02931-6) [facility] Lrjtk2548-23-27 11:49:00 Test Item Value Reference Range Interpretation Comments PHOSPHORUS (test code = 2668051820) 2.7 mg/dL 2.5-5 Lab Interpretation (test code = Normal 71077-6) [facility]CBC with Jupcyunzhrck9546-62-00 11:31:00 Test Item Value Reference Range Interpretation [...] RDW-SD (test code = 47.2 fL 38.5-51.6 45895-0) RDW-CV (test code = 15.3 % 12.1-15.4 788-0) PLT (test code = See_Comment H [Automated 777-3) message] The sy stem which generated this result transmitted reference range : 150 - 328 10*3/ ?L. The reference r meredith was not used to interpret this result as normal/abnormal . MPV (test code = 9.4 fL 9.8-13 L 33751-9) NRBC/100 WBC (test See_Comment [Automat ed code = 2059363700) message] The system which generated this result transmitted reference range : 0.0 - 10.0 /100 WBCs. The refer ence range was not u sed to interpret th is result as normal/abnormal . NRBC x10^3 (test code <0.01 See_Comment [Auto mated = 8430899567) message] The s ystem which generated this result transmitted reference range : 10*3/?L. The reference range was not used to interpret this result as normal/abnormal . GRAN MAT (NEUT) % 81.1 % (test code = 770-8) IMM GRAN % (test code 0.80 % = 8407217788) LYMPH % (test code = 9.5 % 736-9) MONO % (test code = 7.8 % 5905-5) EOS % (test code = 0.6 % 713-8) BASO % (test code = 0.2 % 706-2) GRAN MAT x10^3(ANC) 8.26 10*3/uL 1.99-6.95 H (test code = 7946612510) IMM GRAN x10^3 (test 0.08 10*3/uL 0-0.06 H code = 0436186325) LYMPH x10^3 (test code 0.97 10*3/uL 1.09-3.23 L = 731-0) MONO x10^3 (test code 0.79 10*3/uL 0.36-1.02 = 742-7) EOS x10^3 (test code = 0.06 10*3/uL 0.06-0.53 711-2) BASO x10^3 (test code <0.03 0.01-0.09 = 704-7) Lab Interpretation Abnormal (test code = 32124-6) [facility] Metabolic Panel (NA, K, CL, CO2, GLUCOSE, BUN, CREATININE, CA)2020-05-06 15:02:00 Test Item Value Reference Range Interpretation Comments NA (test code = 134 mmol/L 135-145 L 7578155199) K (test code = 4.3 mmol/L 3.5-5 0001289058) CL (test code = 105 mmol/L 98-108 4498226410) CO2 TOTAL (test code = 23 mmol/L 23-31 4750876637) AGAP (test code = 2-16 9419512380) BUN (test code = 18 mg/dL 7-23 8997707300) GLUCOSE (test code = 96 mg/dL 70-110 2007701707) CREATININE (test code = 0.67 mg/dL 0.6-1.25 3860855663) CALCIUM (test code = 8.5 mg/dL 8.6-10.6 L 3861333931) eGFR Calculation mL/min/1.73m2 (Non-) (test code = 2194226840) eGFR Calculation mL/min/1.73m2 () (test code = 8680162460) GILBERTO (test code = GILBERTO) Association of [...] tests). Lab Interpretation Abnormal (test code = 22970-9) [facility] Zhnsv3185-09-10 15:02:00 Test Item Value Reference Range Interpretation Comments MAGNESIUM (test code = 9487235486) 1.8 mg/dL 1.7-2.4 Lab Interpretation (test code = Normal 37663-0) [facility] Asmlk4867-21-43 15:02:00 Test Item Value Reference Range Interpretation Comments PHOSPHORUS (test code = 9000775357) 3.2 mg/dL 2.5-5 Lab Interpretation (test code = Normal 08916-0) [facility]CBC with Hribpipnocpz3444-13-91 10:41:00 Test Item Value Reference Range Interpretation [...] RDW-SD (test code = 47.0 fL 38.5-51.6 28128-5) RDW-CV (test code = 15.2 % 12.1-15.4 788-0) PLT (test code = See_Comment H [Automated 777-3) message] The sy stem which generated this result transmitted reference range : 150 - 328 10*3/ ?L. The reference r meredith was not used to interpret this result as normal/abnormal . MPV (test code = 9.1 fL 9.8-13 L 09729-4) NRBC/100 WBC (test See_Comment [Automat ed code = 7299667039) message] The system which generated this result transmitted reference range : 0.0 - 10.0 /100 WBCs. The refer ence range was not u sed to interpret th is result as normal/abnormal . NRBC x10^3 (test code <0.01 See_Comment [Auto mated = 9699038373) message] The s ystem which generated this result transmitted reference range : 10*3/?L. The reference range was not used to interpret this result as normal/abnormal . GRAN MAT (NEUT) % 77.3 % (test code = 770-8) IMM GRAN % (test code 0.60 % = 6094934471) LYMPH % (test code = 11.6 % 736-9) MONO % (test code = 9.5 % 5905-5) EOS % (test code = 0.8 % 713-8) BASO % (test code = 0.2 % 706-2) GRAN MAT x10^3(ANC) 6.69 10*3/uL 1.99-6.95 (test code = 3682731931) IMM GRAN x10^3 (test 0.05 10*3/uL 0-0.06 code = 2926979437) LYMPH x10^3 (test code 1.00 10*3/uL 1.09-3.23 L = 731-0) MONO x10^3 (test code 0.82 10*3/uL 0.36-1.02 = 742-7) EOS x10^3 (test code = 0.07 10*3/uL 0.06-0.53 711-2) BASO x10^3 (test code <0.03 0.01-0.09 = 704-7) Lab Interpretation Abnormal (test code = 09992-9) [facility] Packed RBC (in units), 1 Units 2020-05-05 15:59:33 Test Item Value Reference Range Interpretation Comments Cross Match Result Compatible (test code = 4409) ISBT Blood Type Code (test code = 277919) Unit Blood Type (test O Pos code = 4410) Unit Number (test [id number] code = 4411) Blood Expiration Date & Time (test code = 509180) Status Information Issued (test code = 4412) Product Red Blood Cells Identification (test code = 4413) Product Code (test [id number] Performed at [facility] code = 4414) Laboratory Services - [facility] Blood [address] [facility] [address]Elzt Free: [phone] A No. [id number] [facility] HospitalType and Screen - ONCE Mbisjuv5378-46-03 11:34:29 Test Item Value Reference Range Interpretation Comments ABO & RH (test code O POSITIVE Performe d at [facility] = 20) Laboratory Serv [facility] Blood [facility] [facility] [address]Huei Free: [phone] A No. [id number] IAT (test code = Negative Performed a t [facility] 1185) Laboratory Serv [facility] Blood [facility] [address] [facility] [address]Grdn Free: [phone] A No. [id number] [facility] HospitalPREALBUMIN2020-09-12 10:19:00 Test Item Value Reference Range Interpretation Comments PALB (test code = 45702-1) 8.0 mg/dL 18-45 L Lab Interpretation (test code = Abnormal 91165-1) [facility] HospitalBasi Metabolic Panel (NA, K, CL, CO2, GLUCOSE, BUN, CREATININE, CA)2020-05-05 10:12:00 Test Item Value Reference Range Interpretation Comments NA (test code = 135 mmol/L 135-145 5690585466) K (test code = 4.1 mmol/L 3.5-5 9855087886) CL (test code = 106 mmol/L 98-108 6319144358) CO2 TOTAL (test code = 22 mmol/L 23-31 L 0390186959) AGAP (test code = 2-16 3332678278) BUN (test code = 25 mg/dL 7-23 H 7657391777) GLUCOSE (test code = 91 mg/dL 70-110 9745489590) CREATININE (test code = 0.68 mg/dL 0.6-1.25 6021942968) CALCIUM (test code = 7.4 mg/dL 8.6-10.6 L 7865406207) eGFR Calculation mL/min/1.73m2 (Non-) (test code = 9969396870) eGFR Calculation mL/min/1.73m2 () (test code = 6527295802) GILBERTO (test code = GILBERTO) Association of [...] tests). Lab Interpretation Abnormal (test code = 05348-7) [facility] HospitalMagnesium Mokkr1634-47-62 10:12:00 Test Item Value Reference Range Interpretation Comments MAGNESIUM (test code = 4762390804) 1.8 mg/dL 1.7-2.4 Lab Interpretation (test code = Normal 13874-8) [facility] Xjgct9503-67-35 10:12:00 Test Item Value Reference Range Interpretation Comments PHOSPHORUS (test code = 3937080032) 3.1 mg/dL 2.5-5 Lab Interpretation (test code = Normal 04879-0) [facility] with Dnekbqmckick8656-00-04 09:18:00 Test Item Value Reference Range Interpretation [...] RDW-SD (test code = 48.4 fL 38.5-51.6 50102-8) RDW-CV (test code = 15.7 % 12.1-15.4 H 788-0) PLT (test code = See_Comment H [Automated 777-3) message] The sy stem which generated this result transmitted reference range : 150 - 328 10*3/ ?L. The reference r meredith was not used to interpret this result as normal/abnormal . MPV (test code = 9.1 fL 9.8-13 L 07216-8) NRBC/100 WBC (test See_Comment [Automat ed code = 7813313702) message] The system which generated this result transmitted reference range : 0.0 - 10.0 /100 WBCs. The refer ence range was not u sed to interpret th is result as normal/abnormal . NRBC x10^3 (test code <0.01 See_Comment [Auto mated = 9598590810) message] The s ystem which generated this result transmitted reference range : 10*3/?L. The reference range was not used to interpret this result as normal/abnormal . GRAN MAT (NEUT) % 79.0 % (test code = 770-8) IMM GRAN % (test code 0.70 % = 7340540661) LYMPH % (test code = 10.6 % 736-9) MONO % (test code = 8.9 % 5905-5) EOS % (test code = 0.5 % 713-8) BASO % (test code = 0.3 % 706-2) GRAN MAT x10^3(ANC) 7.81 10*3/uL 1.99-6.95 H (test code = 4211663813) IMM GRAN x10^3 (test 0.07 10*3/uL 0-0.06 H code = 6299645813) LYMPH x10^3 (test code 1.05 10*3/uL 1.09-3.23 L = 731-0) MONO x10^3 (test code 0.88 10*3/uL 0.36-1.02 = 742-7) EOS x10^3 (test code = 0.05 10*3/uL 0.06-0.53 L 711-2) BASO x10^3 (test code 0.03 10*3/uL 0.01-0.09 = 704-7) Lab Interpretation Abnormal (test code = 36078-4) [facility] HospitalURINALYSIS2020-[facility]-12 06:03:00 Test Item Value Reference Range Interpretation Comments APPEARANCE (test code = Hazy Clear A 7217053318) COLOR (test code = Yellow Yellow 7306158871) PH (test code = 4.8-8.0 6767563747) SP GRAVITY (test code = 1.003-1.030 H 4323280993) GLU U QUAL (test code = Normal Normal 3075781982) BLOOD (test code = Negative Negative 0620954509) KETONES (test code = Negative Negative 4100327525) PROTEIN (test code = Negative Negative 2887-8) UROBILIN (test code = Normal Normal 0130889992) BILIRUBIN (test code = Negative Negative 8262067109) NITRITE (test code = Negative Negative 7451638047) LEUK ROGER (test code = Negative Negative 7426192158) RBC/HPF (test code = See_Comment H [Autom ated message] 0235543613) The system [employer] generated this result transmitted ref erence range: 0 - 3 HP F. The reference range was not used to int erpret this result as normal/abnormal . WBC/HPF (test code = See_Comment [Autom ated message] 8404741639) The system [employer] generated this result transmitted ref erence range: 0 - 5 HP F. The reference range was not used to int erpret this result as normal/abnormal . BACTERIA (test code = Few Negative A 8228420387) MUCOUS (test code = Slight Negative LPF A 7248277114) CA OXALATE (test code = See_Comment H [Au tomated message] 7216540776) The system [employer] generated this result transmitted ref erence range: <=1 HPF. The reference range was not used to int erpret this result as normal/abnormal . Lab Interpretation (test Abnormal code = 58805-9) [facility] HospitalCT ABDOMEN PELVIS W PTBERNIA7674-00-10 04:56:59 1. ?Interval removal of left subdiaphragmatic, [...] reviewed this study and agree with the abovereport.[facility] HospitalCOVID-19 (ID NOW RAPID TESTING)2020-05-05 03:40:00 Test Item Value Reference Range Interpretation Comments SARS-CoV-2 Rapid ID NOW Not Detected Not Detected (test code = 75774-1) GILBERTO (test code = GILBERTO) ID NOW COVID-19 Assay is an isothermal nucleic acid amplification test intended for the qualitative detection of nucleic acid from SARS-CoV-2 viral RNA in nasopharyngeal (JTAC) specimens. It is used under Emergency Use [...] indicated. Lab Interpretation Normal (test code = 07034-2) [facility]. METABOLIC PANEL (20676)2020-05-05 03:02:00 Test Item Value Reference Range Interpretation Comments NA (test code = 134 mmol/L 135-145 L 6888784920) K (test code = 4.7 mmol/L 3.5-5 0636386703) CL (test code = 99 mmol/L 98-108 1995110226) CO2 TOTAL (test code = 24 mmol/L 23-31 6356644691) AGAP (test code = 2-16 9139712416) BUN (test code = 37 mg/dL 7-23 H 6605006650) GLUCOSE (test code = 105 mg/dL 70-110 8127308422) CREATININE (test code = 0.94 mg/dL 0.6-1.25 5362717211) TOTAL BILI (test code = 0.5 mg/dL 0.1-1.2 1722233266) CALCIUM (test code = 8.8 mg/dL 8.6-10.6 3943206584) T PROTEIN (test code = 6.2 g/dL 6.3-8.2 L 0600667750) ALBUMIN (test code = 3.0 g/dL 3.5-5 L 4839552587) ALK PHOS (test code = 150 U/L 34-122 H 4042598166) ALTv (test code = 28 U/L 5-50 1742-6) AST(SGOT) (test code = 23 U/L 13-40 3832238730) eGFR Calculation mL/min/1.73m2 (Non-) (test code = 2518526361) eGFR Calculation mL/min/1.73m2 () (test code = 8164341981) GILBERTO (test code = GILBERTO) Association of [...] tests). Lab Interpretation Abnormal (test code = 94326-5) [facility] HospitalLIPASE2020-09-12 03:02:00 Test Item Value Reference Range Interpretation Comments LIPASE (test code = 6895432075) 323 U/L 0-220 H Lab Interpretation (test code = Abnormal 48671-8) [facility] HospitalCBC WITH CDYB2315-05-54 02:43:00 Test Item Value Reference Range Interpretation [...] RDW-SD (test code = 45.7 fL 38.5-51.6 65042-3) RDW-CV (test code = 15.4 % 12.1-15.4 788-0) PLT (test code = See_Comment H [Automated 777-3) message] The system which generated this result transmit dain reference range : 150 - 328 10*3/ ?L. The reference range was not u sed to interpret th is result as normal/abnormal . MPV (test code = 8.9 fL 9.8-13 L 23222-9) NRBC/100 WBC (test See_Comment [Automat ed code = 4621233262) message] The system which generated this result transmit dain reference range : 0.0 - 10.0 /100 WBCs. The reference range was not used to interpret this result as normal/abnormal . NRBC x10^3 (test code <0.01 See_Comment [Auto mated = 5690870009) message] The system which generated this result transmit dain reference range : 10*3/?L. The reference range was not used to interpret this result as normal/abnormal . GRAN MAT (NEUT) % 82.6 % (test code = 770-8) IMM GRAN % (test code 0.60 % = 4622049161) LYMPH % (test code = 8.1 % 736-9) MONO % (test code = 8.1 % 5905-5) EOS % (test code = 0.4 % 713-8) BASO % (test code = 0.2 % 706-2) GRAN MAT x10^3(ANC) 11.18 10*3/uL 1.99-6.95 H (test code = [id number]) IMM GRAN x10^3 (test 0.08 10*3/uL 0-0.06 H code = [id number]) LYMPH x10^3 (test code 1.10 10*3/uL 1.09-3.23 = 731-0) MONO x10^3 (test code 1.09 10*3/uL 0.36-1.02 H = 742-7) EOS x10^3 (test code = 0.05 10*3/uL 0.06-0.53 L 711-2) BASO x10^3 (test code 0.03 10*3/uL 0.01-0.09 = 704-7) Lab Interpretation Abnormal (test code = 49386-6) [facility] [facility] (NA, K, CL, CO2, GLUCOSE, BUN, CREATININE, CA)2020-05-01 12:25:00 Test Item Value Reference Range Interpretation Comments NA (test code = 131 mmol/L 135-145 L 6767058493) K (test code = 4.7 mmol/L 3.5-5 1491236322) CL (test code = 97 mmol/L 98-108 L 6995090936) CO2 TOTAL (test code = 25 mmol/L 23-31 4008843843) AGAP (test code = 2-16 7959331634) BUN (test code = 30 mg/dL 7-23 H 6497627709) GLUCOSE (test code = 111 mg/dL 70-110 H 3385575915) CREATININE (test code = 0.69 mg/dL 0.6-1.25 9966079822) CALCIUM (test code = 9.3 mg/dL 8.6-10.6 1654002868) eGFR Calculation mL/min/1.73m2 (Non-) (test code = 8409491054) eGFR Calculation mL/min/1.73m2 () (test code = 0495971110) GILBERTO (test code = GILBERTO) Association of [...] tests). Lab Interpretation Abnormal (test code = 93680-7) [facility] Test Item Value Reference Range Interpretation Comments MAGNESIUM (test code = 8048054183) 2.3 mg/dL 1.7-2.4 Lab Interpretation (test code = Normal 57058-5) [facility] 12:07:00 Test Item Value Reference Range Interpretation Comments PHOSPHORUS (test code = 1162839419) 4.6 mg/dL 2.5-5 Lab Interpretation (test code = Normal 96015-3) [facility] [id number] 11:44:00 Test Item Value Reference Range Interpretation [...] RDW-SD (test code = 44.9 fL 38.5-51.6 08428-5) RDW-CV (test code = 14.8 % 12.1-15.4 788-0) PLT (test code = See_Comment H [Automated 777-3) message] The system which generated this result transmit dain reference range : 150 - 328 10*3/ ?L. The reference range was not u sed to interpret th is result as normal/abnormal . MPV (test code = 9.1 fL 9.8-13 L 09306-5) NRBC/100 WBC (test See_Comment [Automat ed code = 0996888971) message] The system which generated this result transmit dain reference range : 0.0 - 10.0 /100 WBCs. The reference range was not used to interpret this result as normal/abnormal . NRBC x10^3 (test code <0.01 See_Comment [Auto mated = 1990885095) message] The system which generated this result transmit dain reference range : 10*3/?L. The reference range was not used to interpret this result as normal/abnormal . GRAN MAT (NEUT) % 81.4 % (test code = 770-8) IMM GRAN % (test code 0.70 % = 8279322919) LYMPH % (test code = 8.7 % 736-9) MONO % (test code = 8.5 % 5905-5) EOS % (test code = 0.3 % 713-8) BASO % (test code = 0.4 % 706-2) GRAN MAT x10^3(ANC) 12.01 10*3/uL 1.99-6.95 H (test code = 7220703747) IMM GRAN x10^3 (test 0.10 10*3/uL 0-0.06 H code = 7174187618) LYMPH x10^3 (test code 1.28 10*3/uL 1.09-3.23 = 731-0) MONO x10^3 (test code 1.25 10*3/uL 0.36-1.02 H = 742-7) EOS x10^3 (test code = 0.04 10*3/uL 0.06-0.53 L 711-2) BASO x10^3 (test code 0.06 10*3/uL 0.01-0.09 = 704-7) Lab Interpretation Abnormal (test code = 39813-1) [facility] MET[facility] (NA, K, CL, CO2, GLUCOSE, BUN, CREATININE, CA)2020-04-29 12:08:00 Test Item Value Reference Range Interpretation Comments NA (test code = 130 mmol/L 135-145 L 9811826078) K (test code = 5.0 mmol/L 3.5-5 5471936373) CL (test code = 94 mmol/L 98-108 L 1085088243) CO2 TOTAL (test code = 27 mmol/L 23-31 1677601958) AGAP (test code = 2-16 9915066534) BUN (test code = 35 mg/dL 7-23 H 6231049936) GLUCOSE (test code = 116 mg/dL 70-110 H 5735412456) CREATININE (test code = 0.76 mg/dL 0.6-1.25 9179861989) CALCIUM (test code = 9.0 mg/dL 8.6-10.6 8225490324) eGFR Calculation mL/min/1.73m2 (Non-) (test code = 1107779364) eGFR Calculation mL/min/1.73m2 () (test code = 1039000466) GILBERTO (test code = GILBERTO) Association of [...] tests). Lab Interpretation Abnormal (test code = 31961-4) [facility] 12:01:00 Test Item Value Reference Range Interpretation Comments MAGNESIUM (test code = 4837913669) 2.3 mg/dL 1.7-2.4 Lab Interpretation (test code = Normal 13163-2) [facility] 12:01:00 Test Item Value Reference Range Interpretation Comments PHOSPHORUS (test code = 9865655215) 4.5 mg/dL 2.5-5 Lab Interpretation (test code = Normal 64123-5) [facility] [id number] 11:52:00 Test Item Value Reference Range Interpretation [...] RDW-SD (test code = 44.4 fL 38.5-51.6 93457-4) RDW-CV (test code = 14.7 % 12.1-15.4 788-0) PLT (test code = See_Comment H [Automated 777-3) message] The system which generated this result transmit dain reference range : 150 - 328 10*3/ ?L. The reference range was not u sed to interpret th is result as normal/abnormal . MPV (test code = 9.1 fL 9.8-13 L 33743-0) NRBC/100 WBC (test See_Comment [Automat ed code = 3065419489) message] The system which generated this result transmit dain reference range : 0.0 - 10.0 /100 WBCs. The reference range was not used to interpret this result as normal/abnormal . NRBC x10^3 (test code <0.01 See_Comment [Auto mated = 6716090032) message] The system which generated this result transmit dain reference range : 10*3/?L. The reference range was not used to interpret this result as normal/abnormal . GRAN MAT (NEUT) % 82.5 % (test code = 770-8) IMM GRAN % (test code 1.30 % = 0566073928) LYMPH % (test code = 7.1 % 736-9) MONO % (test code = 8.5 % 5905-5) EOS % (test code = 0.3 % 713-8) BASO % (test code = 0.3 % 706-2) GRAN MAT x10^3(ANC) 14.27 10*3/uL 1.99-6.95 H (test code = 4484060387) IMM GRAN x10^3 (test 0.23 10*3/uL 0-0.06 H code = 2378101150) LYMPH x10^3 (test code 1.23 10*3/uL 1.09-3.23 = 731-0) MONO x10^3 (test code 1.47 10*3/uL 0.36-1.02 H = 742-7) EOS x10^3 (test code = 0.05 10*3/uL 0.06-0.53 L 711-2) BASO x10^3 (test code 0.06 10*3/uL 0.01-0.09 = 704-7) Lab Interpretation Abnormal (test code = 66685-4) [facility] METABOLIC PANEL (NA, K, CL, CO2, GLUCOSE, BUN, CREATININE, CA)2020-04-28 10:15:00 Test Item Value Reference Range Interpretation Comments NA (test code = 130 mmol/L 135-145 L 1227057490) K (test code = 5.3 mmol/L 3.5-5 H 6691039736) CL (test code = 91 mmol/L 98-108 L 0394643854) CO2 TOTAL (test code = 29 mmol/L 23-31 8953783774) AGAP (test code = 2-16 9354755734) BUN (test code = 32 mg/dL 7-23 H 0159042303) GLUCOSE (test code = 101 mg/dL 70-110 6266318028) CREATININE (test code = 0.74 mg/dL 0.6-1.25 9521488660) CALCIUM (test code = 9.5 mg/dL 8.6-10.6 3417061652) eGFR Calculation mL/min/1.73m2 (Non-) (test code = 7365168734) eGFR Calculation mL/min/1.73m2 () (test code = 4365901351) GILBERTO (test code = GILBERTO) Association of [...] tests). Lab Interpretation Abnormal (test code = 63654-1) [facility] 10:12:00 Test Item Value Reference Range Interpretation Comments MAGNESIUM (test code = 9766897197) 2.3 mg/dL 1.7-2.4 Lab Interpretation (test code = Normal 09876-4) [facility] WITH [id number] 09:55:00 Test Item Value Reference Range Interpretation Comments WBC (test code = See_Comment H [Automated 3590-2) message] The system which generated this result transmit dain reference range : 4.20 - 10.70 10*3/?L. The reference range was not used to interpret this result as normal/abnormal . RBC (test code = See_Comment L [Automated 499-8) message] The system which generated this result [...] RDW-SD (test code = 45.1 fL 38.5-51.6 30327-2) RDW-CV (test code = 14.7 % 12.1-15.4 788-0) PLT (test code = See_Comment H [Automated 777-3) message] The system which generated this result transmit dain reference range : 150 - 328 10*3/ ?L. The reference range was not u sed to interpret th is result as normal/abnormal . MPV (test code = 9.5 fL 9.8-13 L 75245-8) NRBC/100 WBC (test See_Comment [Automat ed code = 0810778559) message] The system which generated this result transmit dain reference range : 0.0 - 10.0 /100 WBCs. The reference range was not used to interpret this result as normal/abnormal . NRBC x10^3 (test code <0.01 See_Comment [Auto mated = 8798573205) message] The system which generated this result transmit dain reference range : 10*3/?L. The reference range was not used to interpret this result as normal/abnormal . GRAN MAT (NEUT) % 81.1 % (test code = 770-8) IMM GRAN % (test code 1.40 % = 5882902997) LYMPH % (test code = 8.6 % 736-9) MONO % (test code = 7.9 % 5905-5) EOS % (test code = 0.5 % 713-8) BASO % (test code = 0.5 % 706-2) GRAN MAT x10^3(ANC) 14.68 10*3/uL 1.99-6.95 H (test code = 4163834106) IMM GRAN x10^3 (test 0.25 10*3/uL 0-0.06 H code = 0614617038) LYMPH x10^3 (test code 1.55 10*3/uL 1.09-3.23 = 731-0) MONO x10^3 (test code 1.43 10*3/uL 0.36-1.02 H = 742-7) EOS x10^3 (test code = 0.09 10*3/uL 0.06-0.53 711-2) BASO x10^3 (test code 0.09 10*3/uL 0.01-0.09 = 704-7) Lab Interpretation Abnormal (test code = 23846-0) [facility] METABOLIC PANEL (NA, K, CL, CO2, GLUCOSE, BUN, CREATININE, CA)2020-04-27 10:20:00 Test Item Value Reference Range Interpretation Comments NA (test code = 130 mmol/L 135-145 L 7070699965) K (test code = 4.5 mmol/L 3.5-5 5603294581) CL (test code = 93 mmol/L 98-108 L 4891715030) CO2 TOTAL (test code = 28 mmol/L 23-31 5338411380) AGAP (test code = 2-16 7036345327) BUN (test code = 31 mg/dL 7-23 H 5595836757) GLUCOSE (test code = 102 mg/dL 70-110 9990816144) CREATININE (test code = 0.81 mg/dL 0.6-1.25 9807026758) CALCIUM (test code = 9.0 mg/dL 8.6-10.6 5980663213) eGFR Calculation mL/min/1.73m2 (Non-) (test code = 0879546635) eGFR Calculation mL/min/1.73m2 () (test code = 8844999895) GILBERTO (test code = GILBERTO) Association of [...] tests). Lab Interpretation Abnormal (test code = 44370-9) [facility] 10:20:00 Test Item Value Reference Range Interpretation Comments MAGNESIUM (test code = 3195002786) 2.2 mg/dL 1.7-2.4 Lab Interpretation (test code = Normal 55944-7) [facility] WITH [id number] 09:49:00 Test Item Value Reference Range Interpretation Comments WBC (test code = See_Comment H [Automated 2025-2) message] The system which generated this result [...] RDW-SD (test code = 45.2 fL 38.5-51.6 26696-5) RDW-CV (test code = 14.5 % 12.1-15.4 788-0) PLT (test code = See_Comment H [Automated 777-3) message] The system which generated this result transmit dain reference range : 150 - 328 10*3/ ?L. The reference range was not u sed to interpret th is result as normal/abnormal . MPV (test code = 9.0 fL 9.8-13 L 77010-0) NRBC/100 WBC (test See_Comment [Automat ed code = 7795264183) message] The system which generated this result transmit dain reference range : 0.0 - 10.0 /100 WBCs. The reference range was not used to interpret this result as normal/abnormal . NRBC x10^3 (test code <0.01 See_Comment [Auto mated = 6533764893) message] The system which generated this result transmit dain reference range : 10*3/?L. The reference range was not used to interpret this result as normal/abnormal . GRAN MAT (NEUT) % 80.9 % (test code = 770-8) IMM GRAN % (test code 1.30 % = 9250845387) LYMPH % (test code = 8.9 % 736-9) MONO % (test code = 7.7 % 5905-5) EOS % (test code = 0.6 % 713-8) BASO % (test code = 0.6 % 706-2) GRAN MAT x10^3(ANC) 13.18 10*3/uL 1.99-6.95 H (test code = 3673686418) IMM GRAN x10^3 (test 0.21 10*3/uL 0-0.06 H code = 3202139368) LYMPH x10^3 (test code 1.45 10*3/uL 1.09-3.23 = 731-0) MONO x10^3 (test code 1.26 10*3/uL 0.36-1.02 H = 742-7) EOS x10^3 (test code = 0.09 10*3/uL 0.06-0.53 711-2) BASO x10^3 (test code 0.10 10*3/uL 0.01-0.09 H = 704-7) Lab Interpretation Abnormal (test code = 88046-4) [facility] METABOLIC PANEL (NA, K, CL, CO2, GLUCOSE, BUN, CREATININE, CA)2020-04-26 11:29:00 Test Item Value Reference Range Interpretation Comments NA (test code = 133 mmol/L 135-145 L 2472211221) K (test code = 4.7 mmol/L 3.5-5 3491777637) CL (test code = 98 mmol/L 98-108 7314597958) CO2 TOTAL (test code = 25 mmol/L 23-31 4386993752) AGAP (test code = 2-16 7166560315) BUN (test code = 26 mg/dL 7-23 H 5569655865) GLUCOSE (test code = 97 mg/dL 70-110 2201530009) CREATININE (test code = 0.73 mg/dL 0.6-1.25 0235023550) CALCIUM (test code = 8.7 mg/dL 8.6-10.6 3392706155) eGFR Calculation mL/min/1.73m2 (Non-) (test code = 0012313117) eGFR Calculation mL/min/1.73m2 () (test code = 0997256798) GILBERTO (test code = GILBERTO) Association of [...] tests). Lab Interpretation Abnormal (test code = 41232-8) [facility] 11:29:00 Test Item Value Reference Range Interpretation Comments MAGNESIUM (test code = 4212991038) 2.1 mg/dL 1.7-2.4 Lab Interpretation (test code = Normal 83130-0) [facility] WITH [id number] 10:27:00 Test Item Value Reference Range Interpretation Comments WBC (test code = See_Comment H [Automated 2190-2) message] The system which generated this result transmit dain reference range : 4.20 - 10.70 10*3/?L. The reference range was not used to interpret this result as normal/abnormal . RBC (test code = See_Comment L [Automated 039-8) message] The system which generated this result [...] RDW-SD (test code = 45.4 fL 38.5-51.6 94566-9) RDW-CV (test code = 14.5 % 12.1-15.4 788-0) PLT (test code = See_Comment H [Automated 777-3) message] The system which generated this result transmit dain reference range : 150 - 328 10*3/ ?L. The reference range was not u sed to interpret th is result as normal/abnormal . MPV (test code = 9.3 fL 9.8-13 L 09762-9) NRBC/100 WBC (test See_Comment [Automat ed code = 8491434139) message] The system which generated this result transmit dain reference range : 0.0 - 10.0 /100 WBCs. The reference range was not used to interpret this result as normal/abnormal . NRBC x10^3 (test code <0.01 See_Comment [Auto mated = 1904915748) message] The system which generated this result transmit dain reference range : 10*3/?L. The reference range was not used to interpret this result as normal/abnormal . GRAN MAT (NEUT) % 79.6 % (test code = 770-8) IMM GRAN % (test code 1.30 % = 7819967525) LYMPH % (test code = 8.6 % 736-9) MONO % (test code = 9.3 % 5905-5) EOS % (test code = 0.8 % 713-8) BASO % (test code = 0.4 % 706-2) GRAN MAT x10^3(ANC) 12.46 10*3/uL 1.99-6.95 H (test code = 5407934534) IMM GRAN x10^3 (test 0.21 10*3/uL 0-0.06 H code = 0838673016) LYMPH x10^3 (test code 1.34 10*3/uL 1.09-3.23 = 731-0) MONO x10^3 (test code 1.45 10*3/uL 0.36-1.02 H = 742-7) EOS x10^3 (test code = 0.13 10*3/uL 0.06-0.53 711-2) BASO x10^3 (test code 0.07 10*3/uL 0.01-0.09 = 704-7) Lab Interpretation Abnormal (test code = 47462-6) [facility] (NA, K, CL, CO2, GLUCOSE, BUN, CREATININE, CA)2020-04-25 10:03:00 Test Item Value Reference Range Interpretation Comments NA (test code = 133 mmol/L 135-145 L 1229609592) K (test code = 4.6 mmol/L 3.5-5 1061785934) CL (test code = 96 mmol/L 98-108 L 1391977028) CO2 TOTAL (test code = 27 mmol/L 23-31 7074690895) AGAP (test code = 2-16 6832437899) BUN (test code = 21 mg/dL 7-23 2546448562) GLUCOSE (test code = 108 mg/dL 70-110 8693595918) CREATININE (test code = 0.76 mg/dL 0.6-1.25 0257396279) CALCIUM (test code = 9.5 mg/dL 8.6-10.6 6212946257) eGFR Calculation mL/min/1.73m2 (Non-) (test code = 6679201168) eGFR Calculation mL/min/1.73m2 () (test code = 9210956818) GILBERTO (test code = GILBERTO) Association of [...] tests). Lab Interpretation Abnormal (test code = 07640-2) [facility] 10:03:00 Test Item Value Reference Range Interpretation Comments MAGNESIUM (test code = 2892280262) 2.4 mg/dL 1.7-2.4 Lab Interpretation (test code = Normal 19996-2) [facility] [id number] 09:48:00 Test Item Value Reference Range Interpretation [...] RDW-SD (test code = 45.7 fL 38.5-51.6 05699-8) RDW-CV (test code = 14.3 % 12.1-15.4 788-0) PLT (test code = See_Comment HH [Automated 777-3) message] The system which generated this result transmit dain reference range : 150 - 328 10*3/ ?L. The reference range was not u sed to interpret th is result as normal/abnormal . MPV (test code = 9.1 fL 9.8-13 L 17823-6) NRBC/100 WBC (test See_Comment [Automat ed code = 9839293074) message] The system which generated this result transmit dain reference range : 0.0 - 10.0 /100 WBCs. The reference range was not used to interpret this result as normal/abnormal . NRBC x10^3 (test code <0.01 See_Comment [Auto mated = 5027797796) message] The system which generated this result transmit dain reference range : 10*3/?L. The reference range was not used to interpret this result as normal/abnormal . GRAN MAT (NEUT) % 78.9 % (test code = 770-8) IMM GRAN % (test code 1.70 % = 4911060000) LYMPH % (test code = 8.7 % 736-9) MONO % (test code = 9.1 % 5905-5) EOS % (test code = 0.9 % 713-8) BASO % (test code = 0.7 % 706-2) GRAN MAT x10^3(ANC) 11.96 10*3/uL 1.99-6.95 H (test code = 9222469527) IMM GRAN x10^3 (test 0.26 10*3/uL 0-0.06 H code = 9573449688) LYMPH x10^3 (test code 1.32 10*3/uL 1.09-3.23 = 731-0) MONO x10^3 (test code 1.38 10*3/uL 0.36-1.02 H = 742-7) EOS x10^3 (test code = 0.13 10*3/uL 0.06-0.53 711-2) BASO x10^3 (test code 0.11 10*3/uL 0.01-0.09 H = 704-7) Lab Interpretation Abnormal (test code = 82174-3) [facility] WITH [id number] 10:40:00 Test Item Value Reference Range Interpretation [...] RDW-SD (test code = 46.3 fL 38.5-51.6 92294-0) RDW-CV (test code = 14.5 % 12.1-15.4 788-0) PLT (test code = See_Comment HH [Automated 777-3) message] The sy stem which generated this result transmitted reference range : 150 - 328 10*3/ ?L. The reference r meredith was not used to interpret this result as normal/abnormal . MPV (test code = 9.1 fL 9.8-13 L 43105-2) NRBC/100 WBC (test See_Comment [Automat ed code = 0042827857) message] The system which generated this result transmitted reference range : 0.0 - 10.0 /100 WBCs. The refer ence range was not u sed to interpret th is result as normal/abnormal . NRBC x10^3 (test code <0.01 See_Comment [Auto mated = 1543164585) message] The s ystem which generated this result transmitted reference range : 10*3/?L. The reference range was not used to interpret this result as normal/abnormal . GRAN MAT (NEUT) % 74.7 % (test code = 770-8) IMM GRAN % (test code 2.00 % = 3914093137) LYMPH % (test code = 10.0 % 736-9) MONO % (test code = 11.4 % 5905-5) EOS % (test code = 1.3 % 713-8) BASO % (test code = 0.6 % 706-2) GRAN MAT x10^3(ANC) 9.44 10*3/uL 1.99-6.95 H (test code = 3074153019) IMM GRAN x10^3 (test 0.25 10*3/uL 0-0.06 H code = 4848663992) LYMPH x10^3 (test code 1.26 10*3/uL 1.09-3.23 = 731-0) MONO x10^3 (test code 1.44 10*3/uL 0.36-1.02 H = 742-7) EOS x10^3 (test code = 0.16 10*3/uL 0.06-0.53 711-2) BASO x10^3 (test code 0.07 10*3/uL 0.01-0.09 = 704-7) Lab Interpretation Abnormal (test code = 65038-4) [facility] METABOLIC PANEL (NA, K, CL, CO2, GLUCOSE, BUN, CREATININE, CA)2020-04-24 10:39:00 Test Item Value Reference Range Interpretation Comments NA (test code = 133 mmol/L 135-145 L 9166464073) K (test code = 4.3 mmol/L 3.5-5 1899460154) CL (test code = 99 mmol/L 98-108 9818427722) CO2 TOTAL (test code = 29 mmol/L 23-31 5529216675) AGAP (test code = 2-16 0974128453) BUN (test code = 20 mg/dL 7-23 8538206162) GLUCOSE (test code = 109 mg/dL 70-110 6496613979) CREATININE (test code = 0.78 mg/dL 0.6-1.25 9466463164) CALCIUM (test code = 8.4 mg/dL 8.6-10.6 L 7664074616) eGFR Calculation mL/min/1.73m2 (Non-) (test code = 4488973228) eGFR Calculation mL/min/1.73m2 () (test code = 4022842027) GILBERTO (test code = GILBERTO) Association of [...] tests). Lab Interpretation Abnormal (test code = 51385-9) [facility] 10:39:00 Test Item Value Reference Range Interpretation Comments MAGNESIUM (test code = 2077633758) 2.2 mg/dL 1.7-2.4 Lab Interpretation (test code = Normal 62947-2) [facility] PEL[facility] W [id number] 09:30:06 1. ?Overall, no significant change in [...] reviewed this study and agree with theabove report.[facility]CT THORAX W [id number] 03:46:28 Acute pulmonary emboli in the anterior [...] andmorphology. No significant pericardial thickening or effusion. Dsqyoaos-jt-onyou cardiomediastinal shift. Scattered subcentimeter mediastinal and bilateral hilar nodes, nonspecificbut likely reactive. No suspicious or aggressive osseous lesion. No lines/tubes in place in the chest.Abdominal drain in the left upperquadrant. Multiple loculated gas containing collections with peripheral enhancementin the upper abdomen, partially visualized. Please refer to the same- dayabdomen ?report for detailed findings in the abdomen. [facility], Radiant Results Inft User - 04/23/2020 10:47 PM CDTPROCEDURE: CT CHEST WITH CONTRAST - CHEST PROTOCOLCLINICAL INDICATION: Pneumonia, unresolved or complicated COMPARISON: Same day chest radiographTECHNIQUE: Helical CT was performed of the chest (lung apices to bases)using 100 mL Omnipaque 350 nonionic intravenous contrast, w ithoutcomplication. Images were reconstructed at 1.25 mm slice thickness. MIP andcoronal & sagittal MPR images were generated and reviewed. (DFOV = 40 cm)FINDINGS:The lower neck is unremarkable. Normal thyroid gland.Contrast bolus timing is excellent for evaluation of pulmonary tovasculature.Acutepulmonary emboli in the left upper lobe anterior segmental branch(2:114, 2:112). No other acute pulmonary emboli are seen. No CT evidence of right heart strain. The pulmonary trunk is normal incaliber.Elevated left hemidiaphragm. Small left pleural effusion with layeringpleural fluid extending medially to the posterior mediastinum withintermixed foci of gas and moderate sized pneumothorax extending to theapex posteriorly. Fistula subdiaphragmatic collection is a possibility [...] andmorphology. No significant pericardial thickening or effusion. Jtigzjud-if-zdszk cardiomediastinal shift.Scattered subcentimeter mediastinal and bilateral hilar nodes, nonspecificbut likely reactive. No suspicious or aggressive osseous lesion. No lines/tubes in place in the chest. Abdominal drain in the left upperquadrant.Multiple loculated gas containing collections with peripheral enhancementin the upper abdomen, partially visualized. Please refer to the same- dayabdomen report for detailed findings in the abdomen. [...] reviewed this study and agree with theabove report.[facility] HospitalCOVID[facility] (ID NOW RAPID TESTING)2020-04-23 17:45:00 Test Item Value Reference Range Interpretation Comments SARS-CoV-2 Rapid ID NOW Not Detected Not Detected (test code = 84216-2) GILBERTO (test code = GILBERTO) ID NOW COVID-19 Assay is an isothermal nucleic acid amplification test intended for the qualitative detection of nucleic acid from SARS-CoV-2 viral RNA in nasopharyngeal (JTAC) specimens. It is used under Emergency Use [...] indicated. Lab Interpretation Normal (test code = 54916-3) [facility]2020-08-31 17:40:00 Test Item Value Reference Range Interpretation Comments PALB (test code = 54140-3) 11.8 mg/dL 18-45 L Lab Interpretation (test code = Abnormal 94797-8) [facility]XR [facility]ST 1 [id number] 15:00:55 Stable appearance of left pleural effusion [...] reviewed this study and agree with theabove report.[facility] [id number] 14:14:00 Test Item Value Reference Range Interpretation Comments K (test code = 8197129804) 4.8 mmol/L 3.5-5 Lab Interpretation (test code = Normal 87686-5) [facility] WITH [id number] 11:30:00 Test Item Value Reference Range Interpretation [...] RDW-SD (test code = 45.0 fL 38.5-51.6 55451-1) RDW-CV (test code = 14.5 % 12.1-15.4 788-0) PLT (test code = See_Comment HH [Automated 777-3) message] The sy stem which generated this result transmitted reference range : 150 - 328 10*3/ ?L. The reference r meredith was not used to interpret this result as normal/abnormal . MPV (test code = 9.4 fL 9.8-13 L 02694-8) IPF % (test code = 1.6 % 1.2-10.7 Platelet count [id number]) measured by fluorescence method. NRBC/100 WBC (test See_Comment [Automat ed code = 4650626398) message] The system which generated this result transmitted reference range : 0.0 - 10.0 /100 WBCs. The refer ence range was not u sed to interpret th is result as normal/abnormal . NRBC x10^3 (test code <0.01 See_Comment [Auto mated = 7754900967) message] The s ystem which generated this result transmitted reference range : 10*3/?L. The reference range was not used to interpret this result as normal/abnormal . GRAN MAT (NEUT) % 73.4 % (test code = 770-8) IMM GRAN % (test code 1.80 % = 0842203067) LYMPH % (test code = 12.6 % 736-9) MONO % (test code = 10.8 % 5905-5) EOS % (test code = 1.0 % 713-8) BASO % (test code = 0.4 % 706-2) GRAN MAT x10^3(ANC) 9.57 10*3/uL 1.99-6.95 H (test code = 4991347828) IMM GRAN x10^3 (test 0.24 10*3/uL 0-0.06 H code = 6418154690) LYMPH x10^3 (test code 1.64 10*3/uL 1.09-3.23 = 731-0) MONO x10^3 (test code 1.41 10*3/uL 0.36-1.02 H = 742-7) EOS x10^3 (test code = 0.13 10*3/uL 0.06-0.53 711-2) BASO x10^3 (test code 0.05 10*3/uL 0.01-0.09 = 704-7) Lab Interpretation Abnormal (test code = 45062-2) [facility] METABOLIC PANEL (NA, K, CL, CO2, GLUCOSE, BUN, CREATININE, CA)2020-04-23 10:52:00 Test Item Value Reference Range Interpretation Comments NA (test code = 132 mmol/L 135-145 L 3644117736) K (test code = 5.7 mmol/L 3.5-5 H 3786217230) CL (test code = 97 mmol/L 98-108 L 8102135107) CO2 TOTAL (test code = 26 mmol/L -31 4102911581) AGAP (test code = 2-16 3713187046) BUN (test code = 34 mg/dL 7-23 H 6486260016) GLUCOSE (test code = 101 mg/dL 70-110 4701392227) CREATININE (test code = 0.85 mg/dL 0.6-1.25 6817797496) CALCIUM (test code = 9.0 mg/dL 8.6-10.6 7460416884) eGFR Calculation mL/min/1.73m2 (Non-) (test code = 5626049503) eGFR Calculation mL/min/1.73m2 () (test code = 1399720237) GILBERTO (test code = GILBERTO) Association of [...] tests). Lab Interpretation Abnormal (test code = 47607-2) [facility] Test Item Value Reference Range Interpretation Comments MAGNESIUM (test code = 6065317112) 2.3 mg/dL 1.7-2.4 Lab Interpretation (test code = Normal 30868-3) [facility] [id number] 13:26:55 FINDINGS/IMPRESSION: 1. ?A left pigtail chest [...] pleural effusion COMPARISON: Chest x-ray on 04/21/2020 [facility], Radiant Results Inft User - [...] reviewed this study and agree with theabove report.[facility] 2020-04-22 13:24:27FINDINGS/IMPRESSION: 1. [...] this study and agree with theabove report. [facility] (NA, K, CL, CO2, GLUCOSE, BUN, CREATININE, CA)2020-04-22 11:49:00 Test Item Value Reference Range Interpretation Comments NA (test code = 132 mmol/L 135-145 L 7947274844) K (test code = 4.7 mmol/L 3.5-5 5499083671) CL (test code = 97 mmol/L 98-108 L 3148562065) CO2 TOTAL (test code = 30 mmol/L 23-31 6557244403) AGAP (test code = 2-16 3858243202) BUN (test code = 28 mg/dL 7-23 H 5481271785) GLUCOSE (test code = 117 mg/dL 70-110 H 0738836335) CREATININE (test code = 0.88 mg/dL 0.6-1.25 5346307859) CALCIUM (test code = 8.8 mg/dL 8.6-10.6 1648835402) eGFR Calculation mL/min/1.73m2 (Non-) (test code = 4839258409) eGFR Calculation mL/min/1.73m2 () (test code = 4206269188) GILBERTO (test code = GILBERTO) Association of [...] tests). Lab Interpretation Abnormal (test code = 97080-0) [facility] 11:49:00 Test Item Value Reference Range Interpretation Comments MAGNESIUM (test code = 3873566320) 2.4 mg/dL 1.7-2.4 Lab Interpretation (test code = Normal 01724-8) [facility] WITH [id number] 11:23:00 Test Item Value Reference Range Interpretation Comments WBC (test code = See_Comment H [Automated 9138-2) message] The sy stem which generated this result transmitted reference range : 4.20 - 10.70 10*3/?L. The reference range was not used to interpret this result as normal/abnormal . RBC (test code = See_Comment L [Automated 773-8) message] The sy stem which generated this [...] RDW-SD (test code = 44.9 fL 38.5-51.6 88759-7) RDW-CV (test code = 14.4 % 12.1-15.4 788-0) PLT (test code = See_Comment HH [Automated 777-3) message] The sy stem which generated this result transmitted reference range : 150 - 328 10*3/ ?L. The reference r meredith was not used to interpret this result as normal/abnormal . MPV (test code = 9.5 fL 9.8-13 L 19626-0) NRBC/100 WBC (test See_Comment [Automat ed code = 4879532177) message] The system which generated this result transmitted reference range : 0.0 - 10.0 /100 WBCs. The refer ence range was not u sed to interpret th is result as normal/abnormal . NRBC x10^3 (test code <0.01 See_Comment [Auto mated = 5610336414) message] The s ystem which generated this result transmitted reference range : 10*3/?L. The reference range was not used to interpret this result as normal/abnormal . GRAN MAT (NEUT) % 80.3 % (test code = 770-8) IMM GRAN % (test code 1.50 % = 4165182142) LYMPH % (test code = 7.2 % 736-9) MONO % (test code = 9.7 % 5905-5) EOS % (test code = 0.7 % 713-8) BASO % (test code = 0.6 % 706-2) GRAN MAT x10^3(ANC) 9.99 10*3/uL 1.99-6.95 H (test code = 0040636616) IMM GRAN x10^3 (test 0.19 10*3/uL 0-0.06 H code = 4611475915) LYMPH x10^3 (test code 0.90 10*3/uL 1.09-3.23 L = 731-0) MONO x10^3 (test code 1.21 10*3/uL 0.36-1.02 H = 742-7) EOS x10^3 (test code = 0.09 10*3/uL 0.06-0.53 711-2) BASO x10^3 (test code 0.07 10*3/uL 0.01-0.09 = 704-7) Lab Interpretation Abnormal (test code = 80573-5) [facility] WITH [id number] 14:15:00 Test Item Value Reference Range Interpretation [...] RDW-SD (test code = 44.4 fL 38.5-51.6 84476-5) RDW-CV (test code = 14.2 % 12.1-15.4 788-0) PLT (test code = See_Comment HH [Automated 777-3) message] The sy stem which generated this result transmitted reference range : 150 - 328 10*3/ ?L. The reference r meredith was not used to interpret this result as normal/abnormal . MPV (test code = 9.0 fL 9.8-13 L 12661-8) NRBC/100 WBC (test See_Comment [Automat ed code = 7474115738) message] The system which generated this result transmitted reference range : 0.0 - 10.0 /100 WBCs. The refer ence range was not u sed to interpret th is result as normal/abnormal . NRBC x10^3 (test code <0.01 See_Comment [Auto mated = 2009511419) message] The s ystem which generated this result transmitted reference range : 10*3/?L. The reference range was not used to interpret this result as normal/abnormal . GRAN MAT (NEUT) % 76.4 % (test code = 770-8) IMM GRAN % (test code 1.30 % = 9397702851) LYMPH % (test code = 10.9 % 736-9) MONO % (test code = 9.6 % 5905-5) EOS % (test code = 1.1 % 713-8) BASO % (test code = 0.7 % 706-2) GRAN MAT x10^3(ANC) 9.41 10*3/uL 1.99-6.95 H (test code = 8175996220) IMM GRAN x10^3 (test 0.16 10*3/uL 0-0.06 H code = 6957548500) LYMPH x10^3 (test code 1.34 10*3/uL 1.09-3.23 = 731-0) MONO x10^3 (test code 1.18 10*3/uL 0.36-1.02 H = 742-7) EOS x10^3 (test code = 0.13 10*3/uL 0.06-0.53 711-2) BASO x10^3 (test code 0.08 10*3/uL 0.01-0.09 = 704-7) Lab Interpretation Abnormal (test code = 07579-0) [facility] METABOLIC PANEL (NA, K, CL, CO2, GLUCOSE, BUN, CREATININE, CA)2020-04-21 13:47:00 Test Item Value Reference Range Interpretation Comments NA (test code = 130 mmol/L 135-145 L 9638030626) K (test code = 4.8 mmol/L 3.5-5 9642254361) CL (test code = 95 mmol/L 98-108 L 9838917234) CO2 TOTAL (test code = 29 mmol/L 23-31 2210808567) AGAP (test code = 2-16 4551193323) BUN (test code = 25 mg/dL 7-23 H 6578513819) GLUCOSE (test code = 98 mg/dL 70-110 8534717755) CREATININE (test code = 0.78 mg/dL 0.6-1.25 7195475478) CALCIUM (test code = 8.2 mg/dL 8.6-10.6 L 3187407641) eGFR Calculation mL/min/1.73m2 (Non-) (test code = 3802293422) eGFR Calculation mL/min/1.73m2 () (test code = 2762246191) GILBERTO (test code = GILBERTO) Association of [...] tests). Lab Interpretation Abnormal (test code = 95060-0) [facility]2020-08-29 13:47:00 Test Item Value Reference Range Interpretation Comments MAGNESIUM (test code = 6611537419) 2.1 mg/dL 1.7-2.4 Lab Interpretation (test code = Normal 42758-4) [facility]2020-[facility]28 21:30:00 Test Item Value Reference Range Interpretation Comments PALB (test code = 80316-6) 9.3 mg/dL 18-45 L Lab Interpretation (test code = Abnormal 05812-7) [facility] Hospital[facility] Fluid [id number] 14:32:00 Test Item Value Reference Range Interpretation Comments BODY FLUID CULT No organisms isolated (test code = 611-4) Gram stain (test Occasional (Rare) code = 664-3) Polymorphonuclear leukocytes [facility] [id number] 13:09:21EXAM: XR CHEST 1 VW HISTORY: ct [...] heart and great vessels are normal. ? [facility], Radiant Results Inft User - 04/20/2020 8:10 [...] The heart and great vessels are normal. [facility]OL[facility] (NA, K, CL, CO2, GLUCOSE, BUN, CREATININE, CA)2020-04-20 11:00:00 Test Item Value Reference Range Interpretation Comments NA (test code = 132 mmol/L 135-145 L 2316086873) K (test code = 5.2 mmol/L 3.5-5 H 6752766952) CL (test code = 100 mmol/L 98-108 1653336679) CO2 TOTAL (test code = 24 mmol/L 23-31 3788860911) AGAP (test code = 2-16 7357071556) BUN (test code = 19 mg/dL 7-23 4085310478) GLUCOSE (test code = 121 mg/dL 70-110 H 0692628352) CREATININE (test code = 0.77 mg/dL 0.6-1.25 2086523215) CALCIUM (test code = 8.2 mg/dL 8.6-10.6 L 3761211338) eGFR Calculation mL/min/1.73m2 (Non-) (test code = 6937122506) eGFR Calculation mL/min/1.73m2 () (test code = 4372843377) GILBERTO (test code = GILBERTO) Association of [...] tests). Lab Interpretation Abnormal (test code = 90006-4) [facility]2020-08-28 11:00:00 Test Item Value Reference Range Interpretation Comments MAGNESIUM (test code = 7495249827) 2.1 mg/dL 1.7-2.4 Lab Interpretation (test code = Normal 94065-3) [facility]2020-08-28 11:00:00 Test Item Value Reference Range Interpretation Comments PHOSPHORUS (test code = 2140035291) 3.9 mg/dL 2.5-5 Lab Interpretation (test code = Normal 17623-4) [facility]CBC WITH [id number] 10:23:00 Test Item Value Reference Range Interpretation Comments WBC (test code = See_Comment H [Automated 9890-2) message] The system which generated this result transmit dain reference range : 4.20 - 10.70 10*3/?L. The reference range was not used to interpret this result as normal/abnormal . RBC (test code = See_Comment L [Automated 579-8) message] The system which generated this result [...] RDW-SD (test code = 45.2 fL 38.5-51.6 03806-6) RDW-CV (test code = 14.2 % 12.1-15.4 788-0) PLT (test code = See_Comment HH [Automated 777-3) message] The system which generated this result transmit dain reference range : 150 - 328 10*3/ ?L. The reference range was not u sed to interpret th is result as normal/abnormal . MPV (test code = 9.3 fL 9.8-13 L 76943-6) NRBC/100 WBC (test See_Comment [Automat ed code = 3891591644) message] The system which generated this result transmit dain reference range : 0.0 - 10.0 /100 WBCs. The reference range was not used to interpret this result as normal/abnormal . NRBC x10^3 (test code <0.01 See_Comment [Auto mated = 2002169954) message] The system which generated this result transmit dain reference range : 10*3/?L. The reference range was not used to interpret this result as normal/abnormal . GRAN MAT (NEUT) % 79.8 % (test code = 770-8) IMM GRAN % (test code 1.50 % = 3410527892) LYMPH % (test code = 9.8 % 736-9) MONO % (test code = 7.5 % 5905-5) EOS % (test code = 0.6 % 713-8) BASO % (test code = 0.8 % 706-2) GRAN MAT x10^3(ANC) 10.64 10*3/uL 1.99-6.95 H (test code = 2193705233) IMM GRAN x10^3 (test 0.20 10*3/uL 0-0.06 H code = 5425828384) LYMPH x10^3 (test code 1.31 10*3/uL 1.09-3.23 = 731-0) MONO x10^3 (test code 1.00 10*3/uL 0.36-1.02 = 742-7) EOS x10^3 (test code = 0.08 10*3/uL 0.06-0.53 711-2) BASO x10^3 (test code 0.10 10*3/uL 0.01-0.09 H = 704-7) Lab Interpretation Abnormal (test code = 03349-5) [facility] 1 [id number] 12:25:53 No residual pleural effusion noted. Preliminary [...] reviewed this study and agree with theabove report.[facility] (NA, K, CL, CO2, GLUCOSE, BUN, CREATININE, CA)2020-04-19 11:09:00 Test Item Value Reference Range Interpretation Comments NA (test code = 133 mmol/L 135-145 L 9831040533) K (test code = 4.2 mmol/L 3.5-5 3277263591) CL (test code = 101 mmol/L 98-108 1582365996) CO2 TOTAL (test code = 26 mmol/L 23-31 8230743969) AGAP (test code = 2-16 8225872736) BUN (test code = 15 mg/dL 7-23 2480038088) GLUCOSE (test code = 113 mg/dL 70-110 H 2541773850) CREATININE (test code = 0.73 mg/dL 0.6-1.25 3367892833) CALCIUM (test code = 8.1 mg/dL 8.6-10.6 L 8244822339) eGFR Calculation mL/min/1.73m2 (Non-) (test code = 9955063087) eGFR Calculation mL/min/1.73m2 () (test code = 1523075774) GILBERTO (test code = GILBERTO) Association of [...] tests). Lab Interpretation Abnormal (test code = 78647-1) [facility]2020-08-27 11:09:00 Test Item Value Reference Range Interpretation Comments MAGNESIUM (test code = 5816130972) 2.1 mg/dL 1.7-2.4 Lab Interpretation (test code = Normal 60013-4) [facility]2020-08-27 11:09:00 Test Item Value Reference Range Interpretation Comments PHOSPHORUS (test code = 5899713477) 3.9 mg/dL 2.5-5 Lab Interpretation (test code = Normal 57218-2) [facility] WITH [id number] 10:59:00 Test Item Value Reference Range Interpretation [...] RDW-SD (test code = 46.0 fL 38.5-51.6 83194-9) RDW-CV (test code = 14.2 % 12.1-15.4 788-0) PLT (test code = See_Comment HH [Automated 777-3) message] The sy stem which generated this result transmitted reference range : 150 - 328 10*3/ ?L. The reference r meredith was not used to interpret this result as normal/abnormal . MPV (test code = 9.3 fL 9.8-13 L 21736-7) NRBC/100 WBC (test See_Comment [Automat ed code = 0794072305) message] The system which generated this result transmitted reference range : 0.0 - 10.0 /100 WBCs. The refer ence range was not u sed to interpret th is result as normal/abnormal . NRBC x10^3 (test code <0.01 See_Comment [Auto mated = 7081309484) message] The s ystem which generated this result transmitted reference range : 10*3/?L. The reference range was not used to interpret this result as normal/abnormal . GRAN MAT (NEUT) % 79.2 % (test code = 770-8) IMM GRAN % (test code 1.00 % = 3185266757) LYMPH % (test code = 11.4 % 736-9) MONO % (test code = 6.7 % 5905-5) EOS % (test code = 1.0 % 713-8) BASO % (test code = 0.7 % 706-2) GRAN MAT x10^3(ANC) 9.49 10*3/uL 1.99-6.95 H (test code = 1172944307) IMM GRAN x10^3 (test 0.12 10*3/uL 0-0.06 H code = 2118512462) LYMPH x10^3 (test code 1.36 10*3/uL 1.09-3.23 = 731-0) MONO x10^3 (test code 0.80 10*3/uL 0.36-1.02 = 742-7) EOS x10^3 (test code = 0.12 10*3/uL 0.06-0.53 711-2) BASO x10^3 (test code 0.08 10*3/uL 0.01-0.09 = 704-7) Lab Interpretation Abnormal (test code = 25335-9) [facility] HospitalBLO[facility]URE [id number] 22:29:00 Test Item Value Reference Range Interpretation Comments Blood Culture-Aerobic No organisms No growth Previo us (test code = 89419-8) isolated prelim inary verified result was Culture In Progress on 04/13/2020 at 06 06 CDT Blood Culture positive. No growth AA Previous Culture-Anaerobic See Blood Culture preli minary (test code = 37845-8) Workup for verifi ed result additional was Culture In information. Progress on 04/12/2020 at 18 01 CDT Lab Interpretation Abnormal (test code = 26680-8) [facility] WITH TUBE WITH IMAGING 2020-04-18 15:38:00Successful image guided 10 [place]i pigtail chest tube insertioninto the left pleural [...] was obtained. Prior to beginning the procedure, Monroe Protocolwas performed to confirm the patient's identity [...] pleural space. The tractwas dilated to 10 Kuwaiti, and a 10 Kuwaiti pigtail chest tube was insertedand coiled within [...] demonstrated a large amount of pleural fluid. [facility], Radiant Results Inft User - 04/18/2020 10:39 AM CDTEXAMINATION: IMAGE GUIDED LEFT CHEST TUBE INSERTIONHISTORY/INDICATION: left pleural effusion ATTENDING PRESENCE: As the attending radiologist, I performed the entireprocedure. SEDATION: Moderate sedation was administered under the att endingphysician's direction and continuous monitoring by a trained nursespecialist who was independent from those actually performing theprocedure. Total monitored sedation time is documented in [facility].TECHNIQUE: The risks, benefits and alternatives were discussed and informedconsent was obtained. Prior to beginning the procedure, Monroe Protocolwas performed to confirm the patient's identity [...] pleural space. The tractwas dilated to 10 [place]i, and a 10 Kuwaiti pigtail chest tube was insertedand coiled within [...] of pleural fluid. IMPRESSIONSuccessful image guided 10 [place]i pigtail chest tube insertioninto the left pleural space. PLAN: Post procedure chest radiograph will be obtained.[facility] 1 [id number] 13:37:38 Hazy left midlung opacity, may represent [...] on the left. No acute bony abnormality. [facility], Radiant Results Inft User - 04/18/2020 8:40 [...] reviewed this study and agree with the abovereport.[facility] METABOLIC PANEL (NA, K, CL, CO2, GLUCOSE, BUN, CREATININE, CA)2020-04-18 11:18:00 Test Item Value Reference Range Interpretation Comments NA (test code = 134 mmol/L 135-145 L 8563071362) K (test code = 4.4 mmol/L 3.5-5 8924516882) CL (test code = 102 mmol/L 98-108 0737873895) CO2 TOTAL (test code = 26 mmol/L 23-31 9027140377) AGAP (test code = 2-16 4939416637) BUN (test code = 12 mg/dL 7-23 2587845332) GLUCOSE (test code = 106 mg/dL 70-110 2666014112) CREATININE (test code = 0.74 mg/dL 0.6-1.25 2533070403) CALCIUM (test code = 7.5 mg/dL 8.6-10.6 L 6171991370) eGFR Calculation mL/min/1.73m2 (Non-) (test code = 7387092981) eGFR Calculation mL/min/1.73m2 () (test code = 8139268130) GILBERTO (test code = GILBERTO) Association of [...] tests). Lab Interpretation Abnormal (test code = 30265-9) [facility]2020-08-26 11:18:00 Test Item Value Reference Range Interpretation Comments MAGNESIUM (test code = 8386867958) 2.0 mg/dL 1.7-2.4 Lab Interpretation (test code = Normal 71281-9) [facility]2020-08-26 11:18:00 Test Item Value Reference Range Interpretation Comments PHOSPHORUS (test code = 8967378923) 3.4 mg/dL 2.5-5 Lab Interpretation (test code = Normal 76056-4) [facility] WITH [id number] 10:46:00 Test Item Value Reference Range Interpretation Comments WBC (test code = See_Comment H [Automated 4190-2) message] The system which generated this result transmit dain reference range : 4.20 - 10.70 10*3/?L. The reference range was not used to interpret this result as normal/abnormal . RBC (test code = See_Comment L [Automated 529-8) message] The system which generated this result [...] RDW-SD (test code = 46.5 fL 38.5-51.6 06214-9) RDW-CV (test code = 14.5 % 12.1-15.4 788-0) PLT (test code = See_Comment HH [Automated 777-3) message] The system which generated this result transmit dain reference range : 150 - 328 10*3/ ?L. The reference range was not u sed to interpret th is result as normal/abnormal . MPV (test code = 9.6 fL 9.8-13 L 14719-6) NRBC/100 WBC (test See_Comment [Automat ed code = 0737718021) message] The system which generated this result transmit dain reference range : 0.0 - 10.0 /100 WBCs. The reference range was not used to interpret this result as normal/abnormal . NRBC x10^3 (test code <0.01 See_Comment [Auto mated = 8732070115) message] The system which generated this result transmit dain reference range : 10*3/?L. The reference range was not used to interpret this result as normal/abnormal . GRAN MAT (NEUT) % 82.1 % (test code = 770-8) IMM GRAN % (test code 0.90 % = 5403002234) LYMPH % (test code = 9.2 % 736-9) MONO % (test code = 6.6 % 5905-5) EOS % (test code = 0.7 % 713-8) BASO % (test code = 0.5 % 706-2) GRAN MAT x10^3(ANC) 10.02 10*3/uL 1.99-6.95 H (test code = 5205220645) IMM GRAN x10^3 (test 0.11 10*3/uL 0-0.06 H code = 0819023516) LYMPH x10^3 (test code 1.12 10*3/uL 1.09-3.23 = 731-0) MONO x10^3 (test code 0.80 10*3/uL 0.36-1.02 = 742-7) EOS x10^3 (test code = 0.08 10*3/uL 0.06-0.53 711-2) BASO x10^3 (test code 0.06 10*3/uL 0.01-0.09 = 704-7) Lab Interpretation Abnormal (test code = 30500-2) [facility] [id number] 20:01:00 Test Item Value Reference Range Interpretation Comments Blood Culture-Aerobic No organisms No growth Previo us (test code = 19697-1) isolated prelim inary verified result was Culture [...] Culture-Anaerobic isolated preliminar y (test code = 28855-9) verifi ed result was Culture In Progress [...] CDT Lab Interpretation Normal (test code = 32081-8) [facility] [id number] 19:38:57 FINDINGS/IMPRESSION: There are 2 left-sided chest [...] 2:35 PM on 04/17/[address] Mathieu Chapa.[facility] HospitalCyt Pleural [id number] 17:29:00 Test Item Value Reference Range Interpretation Comments Case Report (test code Non-Gynecologic = 3229858027) Cytology ?Case: [id number] ?Authorizing Provider: ?Vance Stafford MD ?Collected: ? 04/16/2020 1650 ?Ordering Location: ? ? Surgery ([facility] 9C) ? Received: ?04/16/2020 1809 ?Pathologist: ? Alice Aj MD ? Specimen: ? ?PLEURAL, LEFT, EFFUSION ? Final Diagnosis (test t0wcgJKoPFYzr0mhMWOqsZ code = 2824231683) FuZzEwMzNcZnRuYmpcdWMx UMfkmkUdKOcqt0MxU0NbPl AwMFxhbnNpXGRlZmxhbmcx LPCxHTT2qcSbOROvCUaqUA XyNVguUi5mzIMujUmbVnFk SCBmh9hmalZKwxrftFv6m5 xwUERmAfW7qZMgVSnqN3xh fhThtILaRZGqTQa8nX78TH MjpP8kkPHjJKzcrdRhThN4 BGuiJTGhPqZ9CGEpdSPzNB OiY7tfCQBvELvnJWVwEUkm sFErNRC4fAqzx2Y4fXVpcP HoyKflCoFvIsYjMXBCe1Wh DMv9rRkhK0CzGMAkGvN4qR QgUGFyYWdyYXBoIEZvbnQ7 dM36JAjblvT7rFCnm4Smg4 9tz345lG3tgIPtPZU6PPEp BUHtsUHxZXUmWTK4MXUlbT LvD1ujLPqcZW0gewyaJZN1 MFxtYXJndDcyMFxtYXJnYj IqsMSoAEHzpJmvBVmbg114 OON8EfKhZJ1dU3Wki2Z7fZ 9maXRcZGVmdGFiNzIwXGZv kf1asCYsDYbpd4EnEEY2dv Z6cAEpjXFrYQNqNS82Hikg p1KuIrgiRUK8QPWixkEny0 Tvh5ibPeTnizJgC6xsI9Xe ZHJoZWFkXHBnYnJkcmZvb3 Cvw5EmyWVkhBw1o5qqNHVn MFZqgWqot5nuKCY8ATXeI7 K1uIGrr5tdMLbxVBJtxMR0 neDnCVSqmBQoP2ZsiR5dYW ggEB5lvra7v7ppXdOdTS0c fpsco0rqIUbkVFXxGZB6Ct XrGFLyg9DvzcdoSqJhj6No qPBgAAujJ73lr012LFZcon MsX9ugcTRmkhtjaJJxokrt HVbathZ0QGCudcHuqYoakR 1mYzEnTzBaPYwdMU8jKYVa L8ldlRVpLLZrTMZpB7ugUn XsqL3dmYtyKRkqTtBaSaLf MFxiIEEuICBQTEVVUkEsIE hZTnK6BCJPH8MWT2DEAECU SVMgRkxVSURccGFyICAgIC HzAN7pEM6VSDUGPUMQBG0H KJHGXtCVN72RPeOMMByYCH 0CNEOPE4JPTAyKJ2uwGIOx ICAgICAgLSBORUdBVElWRS XFB0HsXOXXSXjVED4BWJBW TExTXHBsYWluXGYxXGZzMj BcbGFuZzEwMzNcaGljaFxm SXhhZrGpXBQoPBkmD7qjFq XdSbTwRVWbYCFJDFAPY44Z KD5BJDwiJZV8t2fsfERqYX OhwCGnNhMmXZPaVMXuz2eu ZGVmbGFuZzEwMzNcZnRuYm ghvOEyVVSpSfKnt0fsf175 qRAdi6pjQSBkCoY3uXBdFP KymLabuhf5fSkmZnNlBTEe n9eblkYoSpFsFIZwJHFeOQ UhmUElU612EMOxQAnrz1gm x8FgUKDgnRLcq5D5PUNOYO mnKlXqG235b9ajz5lgibCp cIW8XTAcKLG5CBmkinHjgs Q8HGsjhPAyYjZ8TPpdkbNx VCudyvYrtwSiOrl0RLJnR8 17CBX6bFdas7iyJAV8HFPc XUYlIbxeWr1gqYHkB913DX YcBLYUCBJgcWd4CZJmjnPz dhOwlGICz806G112p7dyCM GtbnSgtKyJpgpuu5jwZ667 XHBhcGVydzEyMjQwXHBhcG EznFE1AXJcXJ6dgmenTDky XJehPAHambA0GVIreWJbX9 GdRPKeSP8crfizTDH9MSfw DHOfNOH1XrIwBGTpd5Zngv j9AnFipe6hbi47SYT3t0Vt aThfJTC9TJO6FoCnTr6rpB BwMWLvUA3xXiKzyKUkLXTj pi70oDfiYRcmpaKehO5qEq AeZRWuzZPrKDQpTY7vmSTo UQSrzN2imbxfNNPlEbUaly pfUHSvcXygdoZuFv0mjSzu GQE9OUyoT1vtjM8pOqA6ZL kiG0newE2xJVz2FNwwuZQ1 ZJOhtX3tWS7hnnntp5vaMD vlOEikLSRijvL3wbY6KRNs gUFhO6KzsK4jRTQkDW6mff qcl8rrEYB4MDohBKFsVVI1 IfUwDBObj4Jfkpn7VzEuh3 DacVXuGEtaS85as378AUYs mvAeQ6slvLJabpmyqARxsi lgZMazrhK7TZNwQQToZCil XGYxXGZzMjBcbGFuZzEwMz NcaGljaFxmMVxkYmNoXGYx EKbdO3xiHjHfT0KrJECvCu FivLTxQAjadUZ7GLOcYVMv y34xcRy1XWWtaaoes6MmCR KleKIcvKBruG7gjeQrx7kr YRSpDDGzNJBxE7OdBTK8rQ BmMLTmyLEjwXJ2ZD8oppQr WS8vGZDtDeflbjVwsILvgu KbRSGaVRnuw8rcZU3oIFOi lCeffU3wqNI4JKMup3vgfG FkgVCnm2xgn6KwhiJyRDgb QDPqDAxsMUKrMCStMP0sGY IgpPYmrhDuc8D0ZipbpVKb sdumUvvzunJ2CZdgrlxtOI DcNIgkF1pzLhCxGIGtgRjv Mzcbm9TxQLKcRWNpTjvbtE FyfX0= Final Diagnosis Comment x2enwFVwQKMlhISdGyLnNW (test code = VuGUAbo6ztITOrqXRpEjTp [id number]) MzNcZnRuYmpcdWMxXGRlZm Wgs8ekv985wFQis8pfSPHg XyH2hTSjLPEbzMUaV271m4 zxs5yozePxnGU3LNDtMRP1 WYpawgLlduA9HVboyQBwBh Q5XBfvvyZlRLavppKajsNg Lps8XDNiR147UZC4iThsb1 zbDFY2WQJdSSYySyXqGq4v eXUvI969BYMiEKLWTOBwvQ k4TBOydpHlhxQhvBKCs932 A157h6fdJVRivhTurChBjr zyp7crK809AUEevHXpngBo JsXuWHPzsAJmzBM3MSFlSN 2azgafDZV0VJcwXWQgpuKr VQEvgZNzJ3K6FpGpiKYyN2 PkITtfOYXqiun0QnGoHy2m aOCfoGG0PPjmw4fqy0hqyM ScJnb6OEFaLpCpAribHZqi w6Vzq5ljLYQihb4xHMZ1tW UloFrss8T2xXLpSOEwcJJa bgBuCAPuDyZ8BGdwLP2dxr 01RUDpVGF5mn4hsSSlxXie rfLtaTAiCBbzQ2JsYNYbs2 71NJDhQ5CjTXZvo7R5hhFg VpYyGXAoyQW8fcC6IRHnWE p0eNOeqkZ6lpKicQLpM5kl eX2mCUioLQ1wxwdhu8oqCV H4HOsxHKVwgAC7ceeyURte CEWyCsH9awSttZFyWRZmpL gbHCaoc116YMY0AeQbWANx z7AoL3IwhCbaT52ebVwoO2 5vSXOniNausN7smTrkqA4h ZjBcZnMyNFxxbFxwbGFpbl xmMFxmczIwXGxhbmcxMDMz AMwbA3emDpDjKEMliCoeAA krl0VnRXKnRPPtJxMbF80y DDShk5usp9QsjWd0TSPoyH 8oeFNkfJT5fG0hLQmtbWom gFNrGQ8whM0azwUfaCOhXW K6dm0fgJvylbmmWcX0NKd7 tEDtd6U2oNJiJFNlVUZhsY DacB9jMYSzf11pmUV6ST78 OEotfGrhZB3gbGSuZX0bUz 1hxZIsmEvbRN14COIagAhi EKqxST13uFWlUUAbZSfyMF J9 Clinical Information Clinical Hx: ?Total (test code = colectomy complicated [id number]) . Requested per consulting surgery team. Gross Description (test y2uceWJzYLGqrOXtKfNjUS code = 6968989787) HdOIDis3dkJTXzaYGpApTf MzNcZnRuYmpcdWMxXGRlZm Grh9hyx077vJMdc4boPIEi McS6qFGnCAFwaTDfE515t8 rqi2hdtzBuuOV4GPGkOEV7 PWtmarNptrW4NXcgcAUuAn E5ZHmfqbKvQKhuhsTataYo Kwo0WTVdI999BDZ3vCcfd4 llUMP5KFEdLOGmQxMiPx4j sHKuD257QZRsHKXXXTYokE q4KDMuocLvmjAzhUYWr977 P787y4fsYGXwvbQnoXhAla xjt9fhR347WXGssBXnheIi SmXmZBVnfLAtbPW3BVBuLO 0exulpGNA8UOcrANEptsNd FAQzoZBsK2X3NfRsbXJuH4 MjWOcwPDYcbdu3MqApGm5i pPGhfJQ0PSpvr2ezt0qlwJ RbQot6KMEyBkZeBzmfGXzb e5Nkt3doRQSpzo2tESR6dN JwwRgje3X6rGMsTDHfqUIa ekXiPKXhAfZ7GXuvNU3vng 45JAEvXSJ0ft4yaCVthMgs kfZpwEDaNUicG7NgEKUxe1 22LYFtE7SwBYAju4F6ymGd BfZiVIGupAZ8pdK2HJVxMV w5pRWyazZ6byNmkVBiP6zd fS6pLIqoTC0dlubev3gtUR T8XNkvCMQqwJR2diqpTYlq LBMnBtN1iiGvzSGwJLGuoU kuUZvbr763UQS6UlAkCGQg r0TbL8LzdJymI64hlNutF4 9zDUMvjRvbeF2cjTefyZ7s ZjBcZnMyNFxxbFxwbGFpbl xmMFxmczIwXGxhbmcxMDMz CSddX8xdWoRrXASvpLdtDG pfc5XzIYXzSOMmLmRpGMMe EXADLFQFFoRgSWeNLoS2TI GOC9JGG0IEXTJLKCYmJdzW LPGdbGNpFQXoR2MfoxQvIJ FnUMGeYBwxBUYjXKUkT0Rt t1UvmLEacG70SJXziIerPO xwYXIgUHJlcGFyZWQgMiBz hNkxMDPoMJMlKOAlMV9hW8 8eBY66TVB4lE2qyVldPMDm raAfFAJBr32uup57s4h5ZD S6gB7soFmyPHToHJKtobS9 iS1iMQzeJZW8 Embedded Images (test code = 1670162984) [facility] [id number] 13:05:21EXAM: XR CHEST 1 VW HISTORY: post [...] the chest is little different than noted yesterday.[facility] WITH [id number] 11:18:00 Test Item Value Reference Range Interpretation [...] RDW-SD (test code = 47.8 fL 38.5-51.6 60800-2) RDW-CV (test code = 14.7 % 12.1-15.4 788-0) PLT (test code = See_Comment HH [Automated 777-3) message] The system which generated this result transmit dain reference range : 150 - 328 10*3/ ?L. The reference range was not u sed to interpret th is result as normal/abnormal . MPV (test code = 9.9 fL 9.8-13 33559-1) NRBC/100 WBC (test See_Comment [Automat ed code = 3938462947) message] The system which generated this result transmit dain reference range : 0.0 - 10.0 /100 WBCs. The reference range was not used to interpret this result as normal/abnormal . NRBC x10^3 (test code <0.01 See_Comment [Auto mated = 3229084559) message] The system which generated this result transmit dain reference range : 10*3/?L. The reference range was not used to interpret this result as normal/abnormal . GRAN MAT (NEUT) % 81.7 % (test code = 770-8) IMM GRAN % (test code 1.10 % = 3172529828) LYMPH % (test code = 9.1 % 736-9) MONO % (test code = 7.3 % 5905-5) EOS % (test code = 0.5 % 713-8) BASO % (test code = 0.3 % 706-2) GRAN MAT x10^3(ANC) 10.91 10*3/uL 1.99-6.95 H (test code = 0984653351) IMM GRAN x10^3 (test 0.15 10*3/uL 0-0.06 H code = 1692945839) LYMPH x10^3 (test code 1.21 10*3/uL 1.09-3.23 = 731-0) MONO x10^3 (test code 0.97 10*3/uL 0.36-1.02 = 742-7) EOS x10^3 (test code = 0.07 10*3/uL 0.06-0.53 711-2) BASO x10^3 (test code 0.04 10*3/uL 0.01-0.09 = 704-7) Lab Interpretation Abnormal (test code = 12960-6) [facility] METABOLIC PANEL (NA, K, CL, CO2, GLUCOSE, BUN, CREATININE, CA)2020-04-17 10:49:00 Test Item Value Reference Range Interpretation Comments NA (test code = 134 mmol/L 135-145 L 7991058898) K (test code = 4.2 mmol/L 3.5-5 0095926042) CL (test code = 103 mmol/L 98-108 0103699419) CO2 TOTAL (test code = 26 mmol/L 23-31 7704185810) AGAP (test code = 2-16 4703674076) BUN (test code = 12 mg/dL 7-23 5512990148) GLUCOSE (test code = 107 mg/dL 70-110 3818551032) CREATININE (test code = 0.74 mg/dL 0.6-1.25 0686436713) CALCIUM (test code = 7.8 mg/dL 8.6-10.6 L 8867072231) eGFR Calculation mL/min/1.73m2 (Non-) (test code = 9804294402) eGFR Calculation mL/min/1.73m2 () (test code = 2578894424) GILBERTO (test code = GILBERTO) Association of [...] tests). Lab Interpretation Abnormal (test code = 31999-4) [facility] 10:49:00 Test Item Value Reference Range Interpretation Comments MAGNESIUM (test code = 6610362832) 2.3 mg/dL 1.7-2.4 Lab Interpretation (test code = Normal 14799-1) [facility]2020-08-25 10:49:00 Test Item Value Reference Range Interpretation Comments PHOSPHORUS (test code = 8521718369) 3.8 mg/dL 2.5-5 Lab Interpretation (test code = Normal 81741-0) [facility] HospitalLDH TOTAL BODY [id number] 00:37:00 Test Item Value Reference Range Interpretation Comments LDH BF (test code = 3707 U/L 4578841035) UNSPUN BODY FLUID Light Yellow COLOR (test code = 0298903701) UNSPUN BODY FLUID Clear CLARITY (test code = 3703931070) SPUN BODY FLUID Light Yellow COLOR (test code = 4434611222) SPUN BODY FLUID Clear CLARITY (test code = 5589045536) Sediment (test code The sediment volume is 0.1 = 5495315429) mLs of the total fluid volume of 3mLs and its color is white. GILBERTO (test code = Test developed and GILBERTO) characteristics determined by [facility] Laboratory Services. [facility] 1 [id number] 00:22:53 1. ?Left lower lung zone 2 [...] compared to 817 with a possible small pneumothorax.[facility] HospitalBODY FLUID DIRECT [id number] 00:10:00 Test Item Value Reference Range Interpretation Comments BF COLOR Light Yellow (test code = 7355808666) BF WBC Count See_Comment [Automated (test code = message] The sy stem 0886486152) which generated this result transmitted reference range : /?L. The refere nce range was not u sed to interpret th is result as normal/abnormal . BF RBC Count <3000 See_Comment [Automated (test code = message] The sy stem 0653239159) which generated this result transmitted reference range : /?L. The refere nce range was not u sed to interpret th is result as normal/abnormal . GILBERTO (test The reference range code = GILBERTO) and other method performance specifications have not been established for this body fluid. ?The test results must be integrated into the clinical context for interpretation. [facility] HospitalBODY FLUID MANUAL [id number] 00:10:00 Test Item Value Reference Range Interpretation Comments BF SEGS (test code = 4262316473) 78 % MACROPHAGE (test code = 3080575198) 22 % #CELS CNTD (test code = 6678936173) [facility] HospitalAmylase Body [id number] 00:03:00 Test Item Value Reference Range Interpretation Comments AMYLASE BF (test 313 U/L code = 3775992830) UNSPUN BODY FLUID Yellow COLOR (test code = 3361191276) UNSPUN BODY FLUID Clear CLARITY (test code = 7041398056) SPUN BODY FLUID Yellow COLOR (test code = 8443108611) SPUN BODY FLUID Clear CLARITY (test code = 6534719254) Sediment (test code The sediment volume is = 7601514493) <0.1 mLs of the total fluid volume of 1mL and its color is red. GILBERTO (test code = Test developed and GILBERTO) characteristics determined by [facility] Laboratory Services. [facility] HospitalGlucose Body [id number] 00:03:00 Test Item Value Reference Range Interpretation Comments GLUCOSE BF (test 57 mg/dL code = 9225240377) UNSPUN BODY FLUID Yellow COLOR (test code = 6662675640) UNSPUN BODY FLUID Clear CLARITY (test code = 3743126527) SPUN BODY FLUID Yellow COLOR (test code = 0379101678) SPUN BODY FLUID Clear CLARITY (test code = 6073900634) Sediment (test code The sediment volume is = 6841804199) <0.1 mLs of the total fluid volume of 1mL and its color is red. GILBERTO (test code = Test developed and GILBERTO) characteristics determined by [facility] Laboratory Services. [facility] HospitalTotal Protein Body [id number] 00:03:00 Test Item Value Reference Range Interpretation Comments T.PROT BF (test 3000.0 mg/dL code = 0656119228) UNSPUN BODY FLUID Yellow COLOR (test code = 0248697925) UNSPUN BODY FLUID Clear CLARITY (test code = 2703818243) SPUN BODY FLUID Yellow COLOR (test code = 1652106045) SPUN BODY FLUID Clear CLARITY (test code = 9034818392) Sediment (test code The sediment volume is = 3606504398) <0.1 mLs of the total fluid volume of 1mL and its color is red. GILBERTO (test code = Test developed and GILBERTO) characteristics determined by [facility] Laboratory Services. [facility] HospitalPH, Body [id number] 23:56:00 Test Item Value Reference Range Interpretation Comments PH BF (test code = 0564860453) UNSPUN BODY FLUID COLOR Light Yellow (test code = 3259630017) UNSPUN BODY FLUID Clear CLARITY (test code = 1078626452) SPUN BODY FLUID COLOR Light Yellow (test code = 8494182869) SPUN BODY FLUID CLARITY Clear (test code = 0850880814) Sediment (test code = The sediment volume is 2224400171) 0.1 mLs of the total fluid volume of 5.5mLs and its color is white/red. [facility] HospitalIR DRAINAGE BY CATHETER PERITONEAL OR [id number] 21:10:26 Successful placement of a 12 Kuwaiti drain in the left upper quadrantcollection. Successful placement of a 14 Kuwaiti drain in the midline air fluidcollection. Successful placement of a 10 [place]i drain in the right lower quadrant fluidcollection. [...] those actually performingthe procedure. Please refer to [facility] regarding sedation time. RADIATION DOSE: 1957 mGy - cm. TECHNIQUE: The risks, benefits and alternatives were discussed and informed consentwas obtained. Prior to beginning the procedure, [place] Protocol was usedto confirm the patient's identity and planned procedure. Maximum sterilebarriers including cap, mask, hand hygiene, sterile gloves, sterile gown,large sterile drape and cutaneous antisepsis were used. The anteriorabdominal wall was sterilely prepped, and draped. The skinoverlying the left upper, right upper, andright lower quadrants wasinfiltrated with lidocaine 2%. The targeted collection in the left upper quadrant was then accessed with m72-yrked quadrant needle using CT guidance. A 0.035 Amplatz wire wasadvanced through the coaxial needle. The tract was serially dilated to 12French. A pigtail 12 Kuwaiti catheter was placed in the left upper quadrantcollection. Approximately, 210 cc of purulent fluid was removed. The air-fluid collection in the mid abdomen was accessed through the rightupper quadrant. An 18 Kuwaiti pigtail catheter was placed in this collectionunder CT guidance in a similar fashion to thedrain and left upperquadrant. Approximately, 1250 cc of purulent material were removed. The fluid collection in the right lower quadrant was also accessed in asimilar fashion. A 10 Kuwaiti pigtail catheter was placed in this collectionunder [...] aspirated at the time of the procedure. [facility], Radiant Results Inft User - 04/16/2020 4:11 PM CDTEXAMINATION: PERCUTANEOUS ASPIRATIONHISTORY: 50-year-old male with postoperative abdominal fluid collections SEDATION: Moderate sedation was administered under the supervision of atrained nurse specialist who was independent from those actually performingthe procedure. Please refer to [facility] regarding sedation time.RADIATION DOSE: 1957 mGy - cm.TECHNIQUE: The risks, benefits and alternatives were d iscussed and informed consentwas obtained. Prior to beginning the procedure, [place] Protocol was usedto confirm the patient's identity [...] serially dilated to 12French. A pigtail 12 Kuwaiti catheter was placed in the left upper quadrantcollection. Approximately, 210 cc of purulent fluid was removed.The air-fluid collection in the mid abdomen was accessed through the rightupper quadrant. An 18 Kuwaiti pigtail catheter was placed in this collectionunder CT guidance in a similar fa shion to the drain and left upperquadrant. Approximately, 1250 cc of purulent material were removed.The fluid collection in the right lower quadrant was also accessed in asimilar fashion. A 10 Kuwaiti pigtail catheter was placed in this collectionunder [...] left upper quadrantcollection.Successful placement of a 14 Kuwaiti drain in the midline air fluidcollection.Successful placement of a 10 Kuwaiti drain in the right lower quadrant fluidcollection.Preliminary Report Dictated by Resident: Hayden Murphy the attending radiologist I was present in the room for the entirety ofthe procedure.I, Neris Grier MD., have reviewed this study and agree with the abovereport.[facility] HospitalB[facility] FLUID CULTURE(AEROBIC/ANAEROBIC)2020-04-16 19:45:00 Test Item Value Reference Range Interpretation Comments BODY FLUID CULT 2+ Bacteroides fragillis (test code = 611-4) Gram stain (test Occasional (Rare) code = 664-3) Mononuclear cells [facility] HospitalPROTHROMBIN TIME / [id number] 16:38:00 Test Item Value Reference Range Interpretation Comments PROTIME PATIENT (test See_Comment H [Auto mated message] code = 5964-2) The system [employer] generated this result transmitted ref erence range: 10.1 - 1 2.6 Seconds. The reference range was not used to int erpret this result as normal/abnormal . INR (test code = 6301-6) Nor mal INR <1.1; Warfarin Therap eutic range 2.0 to 3. 0 or 2.5 to 3.5, dep ending upon the indica tions. Lab Interpretation (test Abnormal code = 84444-7) [facility] HospitalCT ABDOMEN PELVIS W [id number] 13:40:08Impression: 1. ?Interval placement of 4 percutaneous [...] degenerative changes and no suspicious focal lesions. [facility], Radiant Results Inft User - [...] and oral contrast seen up to the ostomy.[facility] METABOLIC PANEL (NA, K, CL, CO2, GLUCOSE, BUN, CREATININE, CA)2020-04-16 10:51:00 Test Item Value Reference Range Interpretation Comments NA (test code = 132 mmol/L 135-145 L 0491728673) K (test code = 4.1 mmol/L 3.5-5 0276808223) CL (test code = 103 mmol/L 98-108 8547158625) CO2 TOTAL (test code = 24 mmol/L 23-31 8320485148) AGAP (test code = 2-16 6569758728) BUN (test code = 13 mg/dL 7-23 4944197605) GLUCOSE (test code = 132 mg/dL 70-110 H 5185877360) CREATININE (test code = 0.77 mg/dL 0.6-1.25 0529948534) CALCIUM (test code = 7.4 mg/dL 8.6-10.6 L 0541723467) eGFR Calculation mL/min/1.73m2 (Non-) (test code = 8921171608) eGFR Calculation mL/min/1.73m2 () (test code = 5724471590) GILBERTO (test code = GILBERTO) Association of [...] tests). Lab Interpretation Abnormal (test code = 00349-6) [facility]2020-08-24 10:51:00 Test Item Value Reference Range Interpretation Comments MAGNESIUM (test code = 2664978665) 2.2 mg/dL 1.7-2.4 Lab Interpretation (test code = Normal 48693-6) [facility]PHOS[facility]2020-08-24 10:51:00 Test Item Value Reference Range Interpretation Comments PHOSPHORUS (test code = 0989156970) 3.1 mg/dL 2.5-5 Lab Interpretation (test code = Normal 04628-3) [facility] HospitalCBC WITH [id number] 10:37:00 Test Item Value Reference Range Interpretation Comments WBC (test code = See_Comment H [Automated 8290-2) message] The system which generated this result transmit dain reference range : 4.20 - 10.70 10*3/?L. The reference range was not used to interpret this result as normal/abnormal . RBC (test code = See_Comment L [Automated 779-8) message] The system which generated this result [...] RDW-SD (test code = 47.4 fL 38.5-51.6 02160-0) RDW-CV (test code = 14.7 % 12.1-15.4 788-0) PLT (test code = See_Comment H [Automated 777-3) message] The system which generated this result transmit dain reference range : 150 - 328 10*3/ ?L. The reference range was not u sed to interpret th is result as normal/abnormal . MPV (test code = 10.1 fL 9.8-13 59559-1) NRBC/100 WBC (test See_Comment [Automat ed code = 5205587954) message] The system which generated this result transmit dain reference range : 0.0 - 10.0 /100 WBCs. The reference range was not used to interpret this result as normal/abnormal . NRBC x10^3 (test code <0.01 See_Comment [Auto mated = 6151879496) message] The system which generated this result transmit dain reference range : 10*3/?L. The reference range was not used to interpret this result as normal/abnormal . GRAN MAT (NEUT) % 83.0 % (test code = 770-8) IMM GRAN % (test code 1.50 % = 5744036141) LYMPH % (test code = 7.6 % 736-9) MONO % (test code = 7.3 % 5905-5) EOS % (test code = 0.3 % 713-8) BASO % (test code = 0.3 % 706-2) GRAN MAT x10^3(ANC) 11.53 10*3/uL 1.99-6.95 H (test code = 8694089228) IMM GRAN x10^3 (test 0.21 10*3/uL 0-0.06 H code = 6003447971) LYMPH x10^3 (test code 1.05 10*3/uL 1.09-3.23 L = 731-0) MONO x10^3 (test code 1.01 10*3/uL 0.36-1.02 = 742-7) EOS x10^3 (test code = 0.04 10*3/uL 0.06-0.53 L 711-2) BASO x10^3 (test code 0.04 10*3/uL 0.01-0.09 = 704-7) Lab Interpretation Abnormal (test code = 05121-9) [facility] METABOLIC PANEL (NA, K, CL, CO2, GLUCOSE, BUN, CREATININE, CA)2020-04-15 11:01:00 Test Item Value Reference Range Interpretation Comments NA (test code = 132 mmol/L 135-145 L 6885260584) K (test code = 4.7 mmol/L 3.5-5 5541238959) CL (test code = 103 mmol/L 98-108 1796165020) CO2 TOTAL (test code = 22 mmol/L 23-31 L 5052870430) AGAP (test code = 2-16 9458081670) BUN (test code = 14 mg/dL 7-23 6372654854) GLUCOSE (test code = 114 mg/dL 70-110 H 9078075273) CREATININE (test code = 0.74 mg/dL 0.6-1.25 6142353114) CALCIUM (test code = 7.9 mg/dL 8.6-10.6 L 2913464065) eGFR Calculation mL/min/1.73m2 (Non-) (test code = 5878158180) eGFR Calculation mL/min/1.73m2 () (test code = 1486597343) GILBERTO (test code = GILBERTO) Association of [...] tests). Lab Interpretation Abnormal (test code = 78328-5) [facility]2020-08-23 11:01:00 Test Item Value Reference Range Interpretation Comments MAGNESIUM (test code = 3269206716) 2.1 mg/dL 1.7-2.4 Lab Interpretation (test code = Normal 07632-2) [facility]2020-08-23 11:01:00 Test Item Value Reference Range Interpretation Comments PHOSPHORUS (test code = 5319269158) 3.4 mg/dL 2.5-5 Lab Interpretation (test code = Normal 30116-4) [facility] HospitalCB WITH [id number] 10:46:00 Test Item Value Reference Range Interpretation Comments WBC (test code = See_Comment H [Automated 7390-2) message] The system which generated this result [...] RDW-SD (test code = 47.7 fL 38.5-51.6 86440-2) RDW-CV (test code = 15.0 % 12.1-15.4 788-0) PLT (test code = See_Comment H [Automated 777-3) message] The system which generated this result transmit dain reference range : 150 - 328 10*3/ ?L. The reference range was not u sed to interpret th is result as normal/abnormal . MPV (test code = 10.4 fL 9.8-13 26484-6) NRBC/100 WBC (test See_Comment [Automat ed code = 2284812104) message] The system which generated this result transmit dain reference range : 0.0 - 10.0 /100 WBCs. The reference range was not used to interpret this result as normal/abnormal . NRBC x10^3 (test code <0.01 See_Comment [Auto mated = 7277291047) message] The system which generated this result transmit dain reference range : 10*3/?L. The reference range was not used to interpret this result as normal/abnormal . GRAN MAT (NEUT) % 85.0 % (test code = 770-8) IMM GRAN % (test code 1.10 % = 2168259107) LYMPH % (test code = 7.2 % 736-9) MONO % (test code = 6.4 % 5905-5) EOS % (test code = 0.1 % 713-8) BASO % (test code = 0.2 % 706-2) GRAN MAT x10^3(ANC) 14.87 10*3/uL 1.99-6.95 H (test code = 4352296368) IMM GRAN x10^3 (test 0.20 10*3/uL 0-0.06 H code = 1466966263) LYMPH x10^3 (test code 1.25 10*3/uL 1.09-3.23 = 731-0) MONO x10^3 (test code 1.11 10*3/uL 0.36-1.02 H = 742-7) EOS x10^3 (test code = <0.03 0.06-0.53 L 711-2) BASO x10^3 (test code 0.03 10*3/uL 0.01-0.09 = 704-7) Lab Interpretation Abnormal (test code = 78069-2) [facility] METABOLIC PANEL (NA, K, CL, CO2, GLUCOSE, BUN, CREATININE, CA)2020-04-14 12:15:00 Test Item Value Reference Range Interpretation Comments NA (test code = 134 mmol/L 135-145 L 1600128084) K (test code = 4.9 mmol/L 3.5-5 6479053079) CL (test code = 105 mmol/L 98-108 3524279140) CO2 TOTAL (test code = 23 mmol/L 23-31 0908877387) AGAP (test code = 2-16 5841856535) BUN (test code = 16 mg/dL 7-23 4070831965) GLUCOSE (test code = 102 mg/dL 70-110 5010278651) CREATININE (test code = 0.82 mg/dL 0.6-1.25 1885224257) CALCIUM (test code = 7.9 mg/dL 8.6-10.6 L 1669042303) eGFR Calculation mL/min/1.73m2 (Non-) (test code = 7817568007) eGFR Calculation mL/min/1.73m2 () (test code = 4428592328) GILBERTO (test code = GILBERTO) Association of [...] tests). Lab Interpretation Abnormal (test code = 04447-4) [facility]2020-[facility]-22 12:15:00 Test Item Value Reference Range Interpretation Comments MAGNESIUM (test code = 5164298112) 2.1 mg/dL 1.7-2.4 Lab Interpretation (test code = Normal 55592-3) [facility]PH[facility]2020-08-22 12:15:00 Test Item Value Reference Range Interpretation Comments PHOSPHORUS (test code = 2519088414) 4.2 mg/dL 2.5-5 Lab Interpretation (test code = Normal 26411-6) [facility] WITH [id number] 11:49:00 Test Item Value Reference Range Interpretation [...] RDW-SD (test code = 48.1 fL 38.5-51.6 75984-4) RDW-CV (test code = 15.1 % 12.1-15.4 788-0) PLT (test code = See_Comment H [Automated 777-3) message] The system which generated this result transmit dain reference range : 150 - 328 10*3/ ?L. The reference range was not u sed to interpret th is result as normal/abnormal . MPV (test code = 10.7 fL 9.8-13 81739-0) NRBC/100 WBC (test See_Comment [Automat ed code = 8263393231) message] The system which generated this result transmit dain reference range : 0.0 - 10.0 /100 WBCs. The reference range was not used to interpret this result as normal/abnormal . NRBC x10^3 (test code <0.01 See_Comment [Auto mated = 8734262188) message] The system which generated this result transmit dain reference range : 10*3/?L. The reference range was not used to interpret this result as normal/abnormal . GRAN MAT (NEUT) % 84.4 % (test code = 770-8) IMM GRAN % (test code 1.10 % = 7967295295) LYMPH % (test code = 7.4 % 736-9) MONO % (test code = 6.8 % 5905-5) EOS % (test code = 0.1 % 713-8) BASO % (test code = 0.2 % 706-2) GRAN MAT x10^3(ANC) 13.45 10*3/uL 1.99-6.95 H (test code = 0228113369) IMM GRAN x10^3 (test 0.18 10*3/uL 0-0.06 H code = [id number]) LYMPH x10^3 (test code 1.18 10*3/uL 1.09-3.23 = 731-0) MONO x10^3 (test code 1.09 10*3/uL 0.36-1.02 H = 742-7) EOS x10^3 (test code = <0.03 0.06-0.53 L 711-2) BASO x10^3 (test code 0.03 10*3/uL 0.01-0.09 = 704-7) Lab Interpretation Abnormal (test code = 31903-4) [facility] TOTAL BODY [id number] 01:27:00 Test Item Value Reference Range Interpretation Comments LDH BF (test code = >6450 U/L [id number]) UNSPUN BODY FLUID Yellow COLOR (test code = 4826491784) UNSPUN BODY FLUID Turbid CLARITY (test code = 1454664257) SPUN BODY FLUID Yellow COLOR (test code = 9769338328) SPUN BODY FLUID Clear CLARITY (test code = 4594269208) Sediment (test code The sediment volume is 0.1 = 1240301798) mLs of the total fluid volume of 5mLs and its color is Red/White. GILBERTO (test code = Test developed and GILBERTO) characteristics determined by [facility] Laboratory Services. [facility] [facility] METABOLIC PANEL (NA, K, CL, CO2, GLUCOSE, BUN, CREATININE, CA)2020-04-14 00:15:00 Test Item Value Reference Range Interpretation Comments NA (test code = 132 mmol/L 135-145 L 1264565381) K (test code = 5.3 mmol/L 3.5-5 H 6392431234) CL (test code = 105 mmol/L 98-108 6803361881) CO2 TOTAL (test code = 20 mmol/L 23-31 L 2966481843) AGAP (test code = 2-16 1988874048) BUN (test code = 14 mg/dL 7-23 0908236332) GLUCOSE (test code = 280 mg/dL 70-110 H 4555383317) CREATININE (test code = 0.75 mg/dL 0.6-1.25 0834332124) CALCIUM (test code = 7.4 mg/dL 8.6-10.6 L 2600202969) eGFR Calculation mL/min/1.73m2 (Non-) (test code = 6409098364) eGFR Calculation mL/min/1.73m2 () (test code = 6592708922) GILBERTO (test code = GILBERTO) Association of [...] tests). Lab Interpretation Abnormal (test code = 19564-5) [facility] WITHOUT [id number] 00:01:00 Test Item Value Reference Range Interpretation Comments WBC (test code = 6690-2) See_Comment H [A utomated message] The system [employer] generated this result transmit dain reference range : 4.20 - 10.70 10*3/?L. The reference range was not used to interpret this result as normal/abnormal . RBC (test code = 789-8) See_Comment L [Au tomated message] The system [employer] generated this result transmit dain reference range [...] See_Comment H [Au tomated message] The system [employer] generated this result transmit dain reference range : 150 - 328 10*3/?L. The reference range was not used to interpret this result as normal/abnormal . MPV (test code = 10.2 fL 9.8-13 70316-0) RDW-CV (test code = 15.3 % 12.1-15.4 788-0) RDW-SD (test code = 49.1 fL 38.5-51.6 77745-2) NRBC x10^3 (test code = <0.01 See_Comment [Au tomated message] 8608342166) The system [employer] generated this result transmit dain reference range : 10*3/?L. The reference range was not used to interpret this result as normal/abnormal . NRBC/100 WBC (test code See_Comment [Au tomated message] = 1071680269) The system [facility] generated this result transmit dain reference range : 0.0 - 10.0 /100 WBC s. The reference r meredith was not used to interpret this result as normal/abnormal . IPF % (test code = 7273698675) Lab Interpretation (test Abnormal code = 39424-1) [facility] [id number] 23:40:00 Test Item Value Reference Range Interpretation Comments BF COLOR Yellow (test code = 1397281318) BF WBC Count See_Comment [Automated (test code = message] The sy stem 3849647644) which generated this result transmitted reference range : /?L. The refere nce range was not u sed to interpret th is result as normal/abnormal . BF RBC Count <3000 See_Comment [Automated (test code = message] The sy stem 7641985347) which generated this result transmitted reference range : /?L. The refere nce range was not u sed to interpret th is result as normal/abnormal . GILBERTO (test The reference range code = GILBERTO) and other method performance specifications have not been established for this body fluid. ?The test results must be integrated into the clinical context for interpretation. [facility]UID MANUAL [id number] 23:40:00 Test Item Value Reference Range Interpretation Comments BF SEGS (test code 99 % = 5152302638) BF LYMPHS (test 1 % code = 4974024152) #CELS CNTD (test code = 4920005637) GILBERTO (test code = Possible intracellular GILBERTO) bacteria. [facility] HospitalGLUCOSE BODY [id number] 23:17:00 Test Item Value Reference Range Interpretation Comments GLUCOSE BF (test <20 mg/dL code = 7922540429) UNSPUN BODY FLUID Yellow COLOR (test code = 2643524758) UNSPUN BODY FLUID Turbid CLARITY (test code = 8940566784) SPUN BODY FLUID Yellow COLOR (test code = 7509974249) SPUN BODY FLUID Clear CLARITY (test code = 8561318226) Sediment (test code The sediment volume is 0.1 = 8697802177) mLs of the total fluid volume of 5mLs and its color is Red/White. GILBERTO (test code = Test developed and GILBERTO) characteristics determined by [facility] Laboratory Services. [facility] HospitalT.PROTEIN BODY [id number] 22:52:00 Test Item Value Reference Range Interpretation Comments T.PROT BF (test 3000.0 mg/dL code = 4580954179) UNSPUN BODY FLUID Yellow COLOR (test code = 6823481632) UNSPUN BODY FLUID Turbid CLARITY (test code = 3871705131) SPUN BODY FLUID Yellow COLOR (test code = 2928028531) SPUN BODY FLUID Clear CLARITY (test code = 0678987855) Sediment (test code The sediment volume is 0.1 = 7114869102) mLs of the total fluid volume of 5mLs and its color is Red/White. GILBERTO (test code = Test developed and GILBERTO) characteristics determined by [facility] Laboratory Services. [facility] HospitalURINE [id number] 19:44:00 Test Item Value Reference Range Interpretation Comments URINE CULTURE (test No aerobic growth (< code = 630-4) 1000 CFU/mL) [facility] HospitalGRAM NEGATIVE BLOOD PATHOGENS DNA [id number] 13:23:00 Test Item Value Reference Range Interpretation Comments Enterobacter species Positive Negative A (test code = 71240-2) GILBERTO (test code = GILBERTO) See blood culture result for additional information. ?Testing included eight identification and six resistance marker targets. Lab Interpretation Abnormal (test code = 66794-7) [facility] WITH [id number] 12:43:00 Test Item Value Reference Range Interpretation [...] RDW-SD (test code = 49.8 fL 38.5-51.6 92578-1) RDW-CV (test code = 15.3 % 12.1-15.4 788-0) PLT (test code = See_Comment H [Automated 777-3) message] The system which generated this result transmit dain reference range : 150 - 328 10*3/ ?L. The reference range was not u sed to interpret th is result as normal/abnormal . MPV (test code = 10.7 fL 9.8-13 90638-2) NRBC/100 WBC (test See_Comment [Automat ed code = 5147321364) message] The system which generated this result transmit dain reference range : 0.0 - 10.0 /100 WBCs. The reference range was not used to interpret this result as normal/abnormal . NRBC x10^3 (test code <0.01 See_Comment [Auto mated = 7392491771) message] The system which generated this result transmit dain reference range : 10*3/?L. The reference range was not used to interpret this result as normal/abnormal . GRAN MAT (NEUT) % 81.3 % (test code = 770-8) IMM GRAN % (test code 1.40 % = 0755620521) LYMPH % (test code = 8.0 % 736-9) MONO % (test code = 8.9 % 5905-5) EOS % (test code = 0.2 % 713-8) BASO % (test code = 0.2 % 706-2) GRAN MAT x10^3(ANC) 10.74 10*3/uL 1.99-6.95 H (test code = 5679462537) IMM GRAN x10^3 (test 0.18 10*3/uL 0-0.06 H code = 6515281395) LYMPH x10^3 (test code 1.06 10*3/uL 1.09-3.23 L = 731-0) MONO x10^3 (test code 1.17 10*3/uL 0.36-1.02 H = 742-7) EOS x10^3 (test code = <0.03 0.06-0.53 L 711-2) BASO x10^3 (test code <0.03 0.01-0.09 = 704-7) Lab Interpretation Abnormal (test code = 85199-9) [facility] METABOLIC PANEL (NA, K, CL, CO2, GLUCOSE, BUN, CREATININE, CA)2020-04-13 11:57:00 Test Item Value Reference Range Interpretation Comments NA (test code = 134 mmol/L 135-145 L 5936634145) K (test code = 4.6 mmol/L 3.5-5 8870489079) CL (test code = 106 mmol/L 98-108 1646301463) CO2 TOTAL (test code = 23 mmol/L 23-31 7257645149) AGAP (test code = 2-16 5405693428) BUN (test code = 14 mg/dL 7-23 5575575438) GLUCOSE (test code = 106 mg/dL 70-110 1010356833) CREATININE (test code = 0.84 mg/dL 0.6-1.25 9285404585) CALCIUM (test code = 7.7 mg/dL 8.6-10.6 L 3478964045) eGFR Calculation mL/min/1.73m2 (Non-) (test code = 3013977569) eGFR Calculation mL/min/1.73m2 () (test code = 3575561926) GILBERTO (test code = GILBERTO) Association of [...] tests). Lab Interpretation Abnormal (test code = 18032-0) [facility]2020-08-21 11:57:00 Test Item Value Reference Range Interpretation Comments MAGNESIUM (test code = 2159992194) 2.1 mg/dL 1.7-2.4 Lab Interpretation (test code = Normal 65077-4) [facility]US2020-08-21 11:57:00 Test Item Value Reference Range Interpretation Comments PHOSPHORUS (test code = 6252573057) 3.4 mg/dL 2.5-5 Lab Interpretation (test code = Normal 94107-6) [facility] HospitalCT ABDOMEN PELVIS W [id number] 00:22:08 1. ?Multiple intraperitoneal collections as detailed [...] just inferior to the wound defect (3:93) [facility], Radiant Results Inft User- 04/12/2020 [...] 0Preliminary Report Dictated by Resident: Mathieu Adame MD., have reviewed this study and agree with the abovereport. [facility] HospitalURINALYSIS2020-08-20 23:20:00 Test Item Value Reference Range Interpretation Comments APPEARANCE (test code = Clear Clear 3078321333) COLOR (test code = Yellow Yellow 7862244197) PH (test code = 4.8-8.0 5236416369) SP GRAVITY (test code = 1.003-1.030 2854074940) GLU U QUAL (test code = Normal Normal 1505222168) BLOOD (test code = Negative Negative 5061962222) KETONES (test code = Negative Negative 4993842257) PROTEIN (test code = 30 mg/dL Negative A 2887-8) UROBILIN (test code = Normal Normal 0394545464) BILIRUBIN (test code = Negative Negative 7265453610) NITRITE (test code = Negative Negative 6131276419) LEUK ROGER (test code = Negative Negative 1088339469) RBC/HPF (test code = See_Comment [Autom ated message] 6117490790) The system [employer] generated this result transmitted ref erence range: 0 - 3 HP F. The reference range was not used to int erpret this result as normal/abnormal . WBC/HPF (test code = <1 See_Comment [Autom ated message] 7661160065) The system [employer] generated this result transmitted ref erence range: 0 - 5 HP F. The reference range was not used to int erpret this result as normal/abnormal . BACTERIA (test code = Negative Negative 8042808993) MUCOUS (test code = Slight Negative LPF A 2869653497) SQ EPITH (test code = See_Comment [Auto mated message] 6754257161) The system [employer] generated this result transmitted ref erence range: <=2 HPF. The reference range was not used to int erpret this result as normal/abnormal . Lab Interpretation (test Abnormal code = 04648-8) [facility] WITH [id number] 12:08:00 Test Item Value Reference Range Interpretation [...] RDW-SD (test code = 48.9 fL 38.5-51.6 30943-2) RDW-CV (test code = 15.4 % 12.1-15.4 788-0) PLT (test code = See_Comment [Automated 777-3) message] The sy stem which generated this result transmitted reference range : 150 - 328 10*3/ ?L. The reference r meredith was not used to interpret this result as normal/abnormal . MPV (test code = 11.2 fL 9.8-13 01545-8) NRBC/100 WBC (test See_Comment [Automat ed code = 7126135161) message] The system which generated this result transmitted reference range : 0.0 - 10.0 /100 WBCs. The refer ence range was not u sed to interpret th is result as normal/abnormal . NRBC x10^3 (test code <0.01 See_Comment [Auto mated = 4787848431) message] The s ystem which generated this result transmitted reference range : 10*3/?L. The reference range was not used to interpret this result as normal/abnormal . GRAN MAT (NEUT) % 79.9 % (test code = 770-8) IMM GRAN % (test code 1.30 % = 7684584664) LYMPH % (test code = 7.4 % 736-9) MONO % (test code = 11.0 % 5905-5) EOS % (test code = 0.2 % 713-8) BASO % (test code = 0.2 % 706-2) GRAN MAT x10^3(ANC) 9.56 10*3/uL 1.99-6.95 H (test code = 8472803095) IMM GRAN x10^3 (test 0.15 10*3/uL 0-0.06 H code = 4555274263) LYMPH x10^3 (test code 0.89 10*3/uL 1.09-3.23 L = 731-0) MONO x10^3 (test code 1.32 10*3/uL 0.36-1.02 H = 742-7) EOS x10^3 (test code = <0.03 0.06-0.53 L 711-2) BASO x10^3 (test code <0.03 0.01-0.09 = 704-7) Lab Interpretation Abnormal (test code = 46493-4) [facility] METABOLIC PANEL (NA, K, CL, CO2, GLUCOSE, BUN, CREATININE, CA)2020-04-12 10:43:00 Test Item Value Reference Range Interpretation Comments NA (test code = 133 mmol/L 135-145 L 8771040386) K (test code = 4.3 mmol/L 3.5-5 5832025403) CL (test code = 104 mmol/L 98-108 2816913471) CO2 TOTAL (test code = 22 mmol/L 23-31 L 2459582860) AGAP (test code = 2-16 9515598285) BUN (test code = 20 mg/dL 7-23 2718858809) GLUCOSE (test code = 108 mg/dL 70-110 4386060798) CREATININE (test code = 0.77 mg/dL 0.6-1.25 2021198317) CALCIUM (test code = 8.1 mg/dL 8.6-10.6 L 3784509180) eGFR Calculation mL/min/1.73m2 (Non-) (test code = 0255313736) eGFR Calculation mL/min/1.73m2 () (test code = 9264729812) GILBERTO (test code = GILBERTO) Association of [...] tests). Lab Interpretation Abnormal (test code = 24844-9) [facility]2020-08-20 10:43:00 Test Item Value Reference Range Interpretation Comments MAGNESIUM (test code = 5843138144) 2.0 mg/dL 1.7-2.4 Lab Interpretation (test code = Normal 27273-2) [facility]2020-08-20 10:43:00 Test Item Value Reference Range Interpretation Comments PHOSPHORUS (test code = 0136115680) 4.3 mg/dL 2.5-5 Lab Interpretation (test code = Normal 17547-1) [facility] HospitalBLOOD CULTURE [id number] 04:01:00 Test Item Value Reference Range Interpretation Comments Blood Culture-Aerobic No organisms No growth Previo us (test code = 54110-2) isolated prelim inary verified result was Culture [...] Culture-Anaerobic isolated preliminar y (test code = 45056-7) verifi ed result was Culture In Progress [...] CDT Lab Interpretation Normal (test code = 35763-5) [facility] [id number] 04:01:00 Test Item Value Reference Range Interpretation Comments Blood Culture-Aerobic No organisms No growth Previo us (test code = 67743-6) isolated prelim inary verified result was Culture [...] Culture-Anaerobic isolated preliminar y (test code = 03006-2) verifi ed result was Culture In Progress [...] CDT Lab Interpretation Normal (test code = 88987-7) [facility] (NA, K, CL, CO2, GLUCOSE, BUN, CREATININE, CA)2020-04-11 10:13:00 Test Item Value Reference Range Interpretation Comments NA (test code = 138 mmol/L 135-145 2788695871) K (test code = 3.9 mmol/L 3.5-5 5161738716) CL (test code = 106 mmol/L 98-108 7470953524) CO2 TOTAL (test code = 27 mmol/L 23-31 4693803041) AGAP (test code = 2-16 3305935660) BUN (test code = 24 mg/dL 7-23 H 6478165929) GLUCOSE (test code = 97 mg/dL 70-110 4002347427) CREATININE (test code = 0.63 mg/dL 0.6-1.25 1835371717) CALCIUM (test code = 8.1 mg/dL 8.6-10.6 L 2949103447) eGFR Calculation mL/min/1.73m2 (Non-) (test code = 7660393985) eGFR Calculation mL/min/1.73m2 () (test code = 0779372364) GILBERTO (test code = GILBERTO) Association of [...] tests). Lab Interpretation Abnormal (test code = 46553-1) [facility]:13[facility]00 Test Item Value Reference Range Interpretation Comments MAGNESIUM (test code = 2057647497) 1.8 mg/dL 1.7-2.4 Lab Interpretation (test code = Normal 98964-4) [facility]2020-08-19 10:13:00 Test Item Value Reference Range Interpretation Comments PHOSPHORUS (test code = 0248929806) 3.6 mg/dL 2.5-5 Lab Interpretation (test code = Normal 08704-3) [facility] HospitalCB WITH [id number] 10:06:00 Test Item Value Reference Range Interpretation [...] RDW-SD (test code = 48.9 fL 38.5-51.6 00933-1) RDW-CV (test code = 15.3 % 12.1-15.4 788-0) PLT (test code = See_Comment [Automated 777-3) message] The sy stem which generated this result transmitted reference range : 150 - 328 10*3/ ?L. The reference r meredith was not used to interpret this result as normal/abnormal . MPV (test code = 11.7 fL 9.8-13 32117-0) NRBC/100 WBC (test See_Comment [Automat ed code = 1293043400) message] The system which generated this result transmitted reference range : 0.0 - 10.0 /100 WBCs. The refer ence range was not u sed to interpret th is result as normal/abnormal . NRBC x10^3 (test code <0.01 See_Comment [Auto mated = 5391987093) message] The s ystem which generated this result transmitted reference range : 10*3/?L. The reference range was not used to interpret this result as normal/abnormal . GRAN MAT (NEUT) % 75.6 % (test code = 770-8) IMM GRAN % (test code 1.10 % = 3051167075) LYMPH % (test code = 10.5 % 736-9) MONO % (test code = 11.0 % 5905-5) EOS % (test code = 1.5 % 713-8) BASO % (test code = 0.3 % 706-2) GRAN MAT x10^3(ANC) 5.56 10*3/uL 1.99-6.95 (test code = 1420314263) IMM GRAN x10^3 (test 0.08 10*3/uL 0-0.06 H code = 5155291858) LYMPH x10^3 (test code 0.77 10*3/uL 1.09-3.23 L = 731-0) MONO x10^3 (test code 0.81 10*3/uL 0.36-1.02 = 742-7) EOS x10^3 (test code = 0.11 10*3/uL 0.06-0.53 711-2) BASO x10^3 (test code <0.03 0.01-0.09 = 704-7) TOXIC CHANGES (test Present A code = 803-7) Lab Interpretation Abnormal (test code = 78493-7) [facility] [id number] 22:00:00 Test Item Value Reference Range Interpretation Comments Case Report (test code Surgical Pathology ? ? = 1633694115) ?Case: [id number] ? Authorizing Provider: ?Person, MD Juventino ? Collected: ? 04/06/2020 1012 ?Ordering Location: ? ? [facility] OR ? Received: ?04/06/2020 1146 ? Department ? Pathologist: ? He, Shaneka, MD ? Specimen: ? ?SOFT TISSUE, OTHER, ileo rectal anastamosis ? Final Diagnosis (test h0hqgWJlUEJbi6vcYNCuqW code = 2953591611) FuZzEwMzNcZnRuYmpcdWMx LDiyzmEhDGtkc9FnI7DdFr AwMFxhbnNpXGRlZmxhbmcx GVRdZYN4kfPiUPAxBSylZR OfPQnsIu0bzQVegYodHrZn VDRzq9audzZNsrlocAh0q0 pkPAFrYlQ4iHQaLGlfW7cr mvYxeYRaOLZfQFg1gD35IB KbpK1rtSUbPYpksbXhGlO9 JDcjYKWmMiW8VUBcpRVbBY JjD0flMKGuDTyfCVXdCLab iIGlDLJ4wLgko3D7fMGszR UorVwmBqWlSuLzMAAEn8Pb AWj9aLjuM0SyLGBiUpQ6dM QgUGFyYWdyYXBoIEZvbnQ7 sY11BVznwwP7eTSei2Zzd0 2ar896aP6wxIUzTFA3ZUKd QXWooHJfUAEtHEO6BMPavN QyJ9srGQmeHQ5bzkbfYNZ7 MFxtYXJndDcyMFxtYXJnYj MudWRdIDCkgMvlTAapc248 MJC9JoMdKK9aU3Xej8G4gT 9maXRcZGVmdGFiNzIwXGZv di8fjHHtGLtyk4YuRIL8pr A9mFNkcTKpQRPvRI60Npka p1FoMlykTDQ0ILBzalQhy9 Gzc0wmHhMihqQqF0uwP3Ve ZHJoZWFkXHBnYnJkcmZvb3 Yga6LviCNlmCx8p0lhZOBu CSZfmBkcl2qaSHT7PMUzO3 Q4lBVlh5nlBZvcYBLorJD3 yuMhJBDopPEnE8EsbE4oYC mtVK9yrvn3j7grAbZaRT7t ijavk8znMDatYEGcUSO2Mb BrQNPnh1ZjqdxvLkXmd6Jl iOReJQmnG45rd611WABqhh JsI3ziuNQaqzaepUTelkhn ZJxikaG1OSOuRNKbVFnoGU YxXGZzMjBcbGFuZzEwMzNc aGljaFxmMVxkYmNoXGYxXG ftA4hnPfSaHhJmBLzwUUFi BL2rF48XD40bHVaMFH9xKl LEJQVTEHGUZJQCQ38FM6rW QVAMTYZxEVGIR56QKeKNZA JEGBXPT5AZX648EQOwccOp JUFgWF5rOcEYMAVQKLBBBX NOZJSIZMONTNQYNEJcI2vT BZEYBhJOL32FUaJOUBcIQh jIWO0ZUZfOJlmzWSmMLHTL DIyYJpowH9ZKF0SJRMaASQ FORFxwYXIgICAgICAgICBQ QYAVSB1PKPJUP9nkGYPrVZ KjIVPwRHYBM4RPAXxPCoKG PBFPVR9TAFXMVITEHXTYMB VccGFyXHBhclxwbGFpblxm MVxmczIyXGxhbmcxMDMzXG ctM7slGvAnXHDnjIjpRWqk n6ZxYSYxBEYpIvucatRiKB CcY8shsCfsVEirWLT9JP0o PT2JE3sLESU3JaT6EzHiFo YqMTH6FkFlXS9gsFrsyH0n WbQyBhYyLXmeAE4dJYVkR2 kzdCXoIJPjCAEcA4tgWdWn eW0tbJrxAYcgrfIsSIItjO UxJNOuxe79NWD1GaUig5H0 LTEiVxVaAISuVH6scCowYV FhWX9uNIVuS0ajbX0vmdy9 OtHaBBZbHtM6VSCobeJ8Tk h9EALbNBjqv1yyw8EnV4Xk qWLsqDx4e1nfRJVsIjA7wH IiXIvuQ4qkgzKmsFFkETWi LLk2zXmrKoRnADUxr0witl BcZmNoYXJzZXQwIENhbGli snc2kC30BNFpwS2eiRZfCD sgacMfJiT4PCbvYQZkFkM5 YNKuvAGeIEAsA5oiIFLqIR mnTJNuBUmncRZtIBS6gJpi e8T6zUSnvXMmqHjfCgCdDz NkXYAFb7KaGGg5vNbcI6Jb MPSmMwV9vDXwMBTwYNflJQ HaJLAeboE8wX65SIfipmF7 fDHuo7Fep28ky548pI1ctD UlOSU9VQMtYHHmpFDbDJGj EAC7DIJxeJOyW0rzGYWqSZ 5ednumYAsoAIksAQFirEU6 YAIfoZEfG8RdAXQwGOonTM Ldomy7VsLwTc4noSKwrLuw GFybt5kgt8mqlSBzGtf3YD UvLmWdJvqcPTgyw3Dxj4vd WOGcnz1aAVI0dZNytCziw8 L0wKEpMZVnmENfmvVbWAOq EuX3PUcaKE6ved16KPNuSP T5eq6qtWJmqTaolvEgwCVu SWzsX9QtQCAzz658HSHyD5 FyTINtk3A8zfIgMuUdECFl aGX5zgZ2AQOdIPr9eZGdgf V3zdQybWXaD1xmyT6eUQWa AR4xhqkyy8zpTWjfUWhpVI HmgRT5btF5LHNwoJAvD6Hj fZ1cJMIqBQfoJRKbcnf6Ss BsUp4sgYEfgZlnSXmoTrmi YWdlXHBnbmNvbnRccGduZG VjXHBsYWluXHBsYWluXGYw RDJnYtQykQoftOnasV8wZj PgEyMnIPhqWQ4sPFKwH8pu qTDkHWUbHYDeC7toWwUvcR 9jaFxmMVxjZjJcZnMyMFxw YXIgSSBoYXZlIHBlcnNvbm SahJopzoJ4sBZ7VSLpYTao ZTUqBYCbxANyyp2taBcdYP UsJA6jKFLckwIfARjxxPyj SRqpNHF4CFTvaJMpaTAybA FkZSBieSByZXNpZGVudHMs JEHysEtcg0Ivw8NzvBG5eU 3og2jqw7QvICIzjIU0BT10 tfC3lM7sMMSxTF8sPLRzCG 4jeMIuoPAkFFRji95dlHdk cyByZXBvcnQuXHBsYWluXG YyXGZzMjhcbGFuZzEwMzNc aGljaFxmMlxkYmNoXGYyXG fiS4xoEkNlVfHxSEzwNLN2 fQ== Clinical Information Abdominal distention (test code = [R14.0] 5251842372) Gross Description (test x9zaaXIoKBBmbDUqPdQuWP code = 4439884159) KqGTHgt8spGONywLNnPnAr MzNcZnRuYmpcdWMxXGRlZm Yyu6zry487qFNwr5hdFIVp GxZ7yUYgMQOiwRZaU449VB AcQXqcw7joq9UmCMLnjBMc e4G5AYNMbblzgFt4wVbuP7 9ua7C2AncvV4bcDRGaPYnw UKDpVDmroHCxWLN7DTOaHQ M1ZGvxqsObzlG6GPabgSMa CwO9PPf7d9iwcAsfUNMpOB X9j8mfLWjwnmIqEG4idf5j pRh3x3eatnMhEDQpAGTguA RIXKMkR9SljIrcAv5jiDx8 mDdmOobbGVE6Lov0FB5isi 95lnv9kNllVAXbbecgCtQ3 OFmcGYTcxjciYKb6BJrtQQ YwuRHoLKQgeSBtE9KtXAqr OJ2ujzn9ZzOnHE1koqmtEE qmGRBbWMD8OqQoVAPub4Ua dsmmNkHqoi1aak53QZK4s4 PcnKgiNDA3SOO7TbAjQr4f sJWhLJYaAF6xOrBrlBKbDN Jzoa50kOinQIaootXkjB5y FzJpIPYwmXCdUALeSF9xbN UaQHXauM2mzrwlYLZeHwSd pklhVQXmoJabaeFvDo5csL wfMSV7SXejZ4qgqO7zIbB6 PVyuT8ciqU5eVNu1ABlzjR X1BGGitP6rLH4ihcqdq6sj KLW6CIfmLBCedyY5cuToNY YutDWfL7LhfM40QbOyrRIl L3TviT9oQEeuVMGenyv0Eu BgYw8gvPAtzSV0LLljBhjg YWdlXHBnbmNvbnRccGduZG VjXHBsYWluXHBsYWluXGYw NNPhMbHshQeiwUqajD8dYa BcZnMyMFxwbGFpblxmMFxm czIwIFNwZWNpbWVuIEEgcm QzLQr7ZVDaUsTqu1xxcTBt OUjeTBV2xRBkZNOvDYXtKA IdZG73Y0LnvgWdWEevNEfv ubIzZzExSBIhx75beFM3cV OkkMHpKUhtDLCaSPXxZ2Fj qPConzDwoA5da3JvhaMwUT 7nLMQylcNjq3NaNC8oJJWe a7KukMFcmXLgBNAou5VkcL lewuCmYlDycB7sYYGjbdBv y2xeyEQqBD54GHZqWQmiEF ttnlb9nHEzxfCipiLmG3qb OfTczb3tJWHnXDdbtPEpel lrEJfljbTcIVH9PhDtWXpj ITDiyKnopQ1fKcIdYoPpHD H3DmWoO92oFNzqpBV6OHBr WKEpevXrh1BpbaEdo7c4kX KksONtBIFcL2YwkMPokpSj gC7kw9Emam2yJBMViDSxl5 Pyb5RusVUkYTLbo4RdeIqb iaVbLH6lRFdtED9vDVGmGH nvlBVdvv45SOBmWXMswCiv MHRpUCQ9f23tr8ekOXZszL MfFC7hDFS6yEZreaEdxFN7 oDUeSbDjCKnivMM8CCXsXW cxUGMPxFMxtOQwYn8vZLBi n74kcZHhoO4eMRQmZAYvJf RiQ22kIzJpbPR8jDHogEqc FXmnfFDbS8gpGNLxDAPgGg DtXsMbyJH2vKFnroVpcDNa ZV8xyetogm5vTTvwLKR5ga bxQ9ZmLS6wcggnezCaWYJk AP5yRC7mVKXurqOkwLafHR CrJMLzyPBlXHqvRUbwM4cf TNWcohK5PUZfiC2pKLXwhK PeOr8lAHQjt22rj9t8AUQ5 jAYyeR6isSgrPJGlUKH7l3 9ut5tpEIJ5OPGwSVByyH7d HsUjPyPzUGnhSXZpSV3hUR HzLTVuiVXtf3RbxGVflZ8b XLUtokLlbpRxLJEidFX9x7 DyZBJyvOIdl7BcNQF0oCFm LRWwmhItXDKeRTFcEB6pjC TjSQLkoDIdj7RnzQJ4yZLr XUIhD1Eaj41jYNNzNZAqvS ScpPC1BYGfSLFyCFYygEei vH9jWaLiGdWhWKy5PFChNU VsKbn3OAXmEAbqDQZwDSNv MjAgQTQuXHBhclxwYXIgU2 BxcImxpbXcm9DsFrspCABa OAU4YVXWKFC5JDmql7PqU1 fiXFqzdAPxV4bsCANcWDXd KJMzqvXzvJy0UEmlETVkCS W2PAQJnIIemIZitCEpuXBf gBQdKKQvoI0bLNWguKIwz7 VcqTQ0sRKoIRBiscVIDczs OCTlntUzrrI5zS5fMAIkoS JueOQgBTP3DwMbLE3iydNn wUExXPElFAM9mX7bDV9eAQ FuZXymBGSff7AuVJPkLUMy YTKkxkQveDq9OEeiQANboK BsSXStluXqhNqvyR5fDfMc ZnMyMFxwbGFpblxmMVxmcz DkUDLbsEoxSXXccWShKW8R OXlAYVZye5ngP3uapBCOx9 Lws7AzbiJkUNVnGKxzCXPu XGZzMjBccGFyXHFsXHBsYW ldJPIvJKRoXrGyaNdgxG7w ZjBcZnMyMFxwYXJccGFyfQ == Embedded Images (test code = [id number]) [facility] WITH [id number] 11:29:00 Test Item Value Reference Range Interpretation [...] RDW-SD (test code = 48.8 fL 38.5-51.6 30326-7) RDW-CV (test code = 15.2 % 12.1-15.4 788-0) PLT (test code = See_Comment L [Automated 777-3) message] The sy stem which generated this result transmitted reference range : 150 - 328 10*3/ ?L. The reference r meredith was not used to interpret this result as normal/abnormal . MPV (test code = 11.6 fL 9.8-13 18547-9) NRBC/100 WBC (test See_Comment [Automat ed code = [id number]) message] The system which generated this result transmitted reference range : 0.0 - 10.0 /100 WBCs. The refer ence range was not u sed to interpret th is result as normal/abnormal . NRBC x10^3 (test code <0.01 See_Comment [Auto mated = [id number]) message] The s ystem which generated this result transmitted reference range : 10*3/?L. The reference range was not used to interpret this result as normal/abnormal . GRAN MAT (NEUT) % 79.1 % (test code = 770-8) IMM GRAN % (test code 0.50 % = [id number]) LYMPH % (test code = 11.0 % 736-9) MONO % (test code = 7.8 % 5905-5) EOS % (test code = 1.4 % 713-8) BASO % (test code = 0.2 % 706-2) GRAN MAT x10^3(ANC) 4.67 10*3/uL 1.99-6.95 (test code = [id number]) IMM GRAN x10^3 (test 0.03 10*3/uL 0-0.06 code = [id number]) LYMPH x10^3 (test code 0.65 10*3/uL 1.09-3.23 L = 731-0) MONO x10^3 (test code 0.46 10*3/uL 0.36-1.02 = 742-7) EOS x10^3 (test code = 0.08 10*3/uL 0.06-0.53 711-2) BASO x10^3 (test code <0.03 0.01-0.09 = 704-7) Lab Interpretation Abnormal (test code = 73529-9) [facility] Test Item Value Reference Range Interpretation Comments MAGNESIUM (test code = 2668476599) 1.7 mg/dL 1.7-2.4 Lab Interpretation (test code = Normal 20733-4) [facility] 11:19:00 Test Item Value Reference Range Interpretation Comments PHOSPHORUS (test code = 2839416343) 3.0 mg/dL 2.5-5 Lab Interpretation (test code = Normal 31705-4) [facility] [id number] 13:59:01 Interval extubation and removal of enteric [...] reviewed this study and agree with theabove report.[facility]30772[facility] (ALB,T.PRO,BILI T,BU/BC,ALT,AST,ALK PHOS) 2020-04-09 11:52:00 Test Item Value Reference Range Interpretation Comments TOTAL BILI (test code = 1034972264) 1.2 mg/dL 0.1-1.1 H BILI UNCON (test code = 6143913306) 0.8 mg/dL 0.1-1.1 BILI CONJ (test code = 7268656340) 0.0 mg/dL 0-0.3 T PROTEIN (test code = 4960325969) 4.2 g/dL 6.3-8.2 L ALBUMIN (test code = 6496231023) 2.2 g/dL 3.5-5 L ALK PHOS (test code = 3829094541) 36 U/L 34-122 ALTv (test code = 1742-6) 13 U/L 5-50 AST(SGOT) (test code = 2309590412) 23 U/L 13-40 Lab Interpretation (test code = Abnormal 23696-2) [facility] WITH [id number] 10:01:00 Test Item Value Reference Range Interpretation [...] RDW-SD (test code = 47.6 fL 38.5-51.6 93324-7) RDW-CV (test code = 14.8 % 12.1-15.4 788-0) PLT (test code = See_Comment L [Automated 777-3) message] The sy stem which generated this result transmitted reference range : 150 - 328 10*3/ ?L. The reference r meredith was not used to interpret this result as normal/abnormal . MPV (test code = 11.6 fL 9.8-13 18871-5) NRBC/100 WBC (test See_Comment [Automat ed code = 7898239586) message] The system which generated this result transmitted reference range : 0.0 - 10.0 /100 WBCs. The refer ence range was not u sed to interpret th is result as normal/abnormal . NRBC x10^3 (test code <0.01 See_Comment [Auto mated = 3811685008) message] The s ystem which generated this result transmitted reference range : 10*3/?L. The reference range was not used to interpret this result as normal/abnormal . GRAN MAT (NEUT) % 87.5 % (test code = 770-8) IMM GRAN % (test code 0.90 % = 6805801810) LYMPH % (test code = 7.5 % 736-9) MONO % (test code = 3.4 % 5905-5) EOS % (test code = 0.5 % 713-8) BASO % (test code = 0.2 % 706-2) GRAN MAT x10^3(ANC) 5.12 10*3/uL 1.99-6.95 (test code = 1732967519) IMM GRAN x10^3 (test 0.05 10*3/uL 0-0.06 code = 2108725310) LYMPH x10^3 (test code 0.44 10*3/uL 1.09-3.23 L = 731-0) MONO x10^3 (test code 0.20 10*3/uL 0.36-1.02 L = 742-7) EOS x10^3 (test code = 0.03 10*3/uL 0.06-0.53 L 711-2) BASO x10^3 (test code <0.03 0.01-0.09 = 704-7) DOHLE BODIES (test Present A code = 7792-5) TOXIC CHANGES (test Present A code = 803-7) Lab Interpretation Abnormal (test code = 42986-3) [facility] METABOLIC PANEL (NA, K, CL, CO2, GLUCOSE, BUN, CREATININE, CA)2020-04-09 09:37:00 Test Item Value Reference Range Interpretation Comments NA (test code = 135 mmol/L 135-145 4519989589) K (test code = 3.6 mmol/L 3.5-5 8661506982) CL (test code = 105 mmol/L 98-108 3845203446) CO2 TOTAL (test code = 31 mmol/L 23-31 1201348087) AGAP (test code = <1 2-16 L 5331671004) BUN (test code = 28 mg/dL 7-23 H 7893508651) GLUCOSE (test code = 95 mg/dL 70-110 5527466944) CREATININE (test code = 0.78 mg/dL 0.6-1.25 7099048807) CALCIUM (test code = 8.1 mg/dL 8.6-10.6 L 1622940433) eGFR Calculation mL/min/1.73m2 (Non-) (test code = 0283414010) eGFR Calculation mL/min/1.73m2 () (test code = 3851745071) GILBERTO (test code = GILBERTO) Association of [...] tests). Lab Interpretation Abnormal (test code = 76027-3) [facility] Test Item Value Reference Range Interpretation Comments MAGNESIUM (test code = 5189996834) 1.8 mg/dL 1.7-2.4 Lab Interpretation (test code = Normal 92617-9) [facility] 09:36:00 Test Item Value Reference Range Interpretation Comments PHOSPHORUS (test code = 4603020119) 1.8 mg/dL 2.5-5 L Lab Interpretation (test code = Abnormal 54981-6) [facility] + LACTIC [id number] 21:18:00 Test Item Value Reference Range Interpretation Comments PH (test code = 2) 7.35-7.45 PCO2 (test code = See_Comment [Automate d 3468391482) message] The sy stem which generated this result transmitted reference range : 35 - 45 mmHg. The reference range was not used to interpret this result as normal/abnormal . PO2 (test code = See_Comment L [Automated 2978796771) message] The sy stem which generated this result transmitted reference range : 80 - 100 mmHg. The reference range was not used to interpret this result as normal/abnormal . HCO3 (test code = See_Comment [Automate d 6085197160) message] The sy stem which generated this result transmitted reference range : 22 - 26 mEq/L. The reference range was not used to interpret this result as normal/abnormal . BE (test code = See_Comment [Automated 3697933706) message] The sy stem which generated this result transmitted reference range : -3.0 - 3.0 mEq/ L. The reference r meredith was not used to interpret this result as normal/abnormal . THB (test code = 9.2 g/dL 13.5-18 L 6906440781) %O2HB (test code = 94.3 % 94-99 1975812956) %COHB ART (test code = 0.7 % 0-1.5 6090852378) %METHB ART (test code = 0.3 % 0.4-1.5 L 4459999334) VOL%O2 ART (test code = 12.3 % 15-23 L 9518993160) NA (test code = 135 mmol/L 135-145 7369316714) K+ (test code = 3.7 mmol/L 3.5-5 8623111910) AC CA IONZ (test code = 4.90 mg/dL 4.5-5.3 3532281546) GLUCOSE (test code = 94 mg/dL 70-110 8049692513) LACTIC ACID (test code 1.35 mmol/L = 9630484144) Lab Interpretation Abnormal (test code = 95239-8) [facility] GLUCOSE (AUTOMATED)2020-04-08 16:33:00 Test Item Value Reference Range Interpretation Comments POCT GLU (test code = 8517253204) 109 mg/dL 70-110 Lab Interpretation (test code = Normal 83867-2) [facility] GLUCOSE (AUTOMATED)2020-04-08 16:33:00 Test Item Value Reference Range Interpretation Comments POCT GLU (test code = 1097465864) 120 mg/dL 70-110 H Lab Interpretation (test code = Abnormal 15073-9) [facility] GLUCOSE (AUTOMATED)2020-04-08 16:33:00 Test Item Value Reference Range Interpretation Comments POCT GLU (test code = 9161327381) 93 mg/dL 70-110 Lab Interpretation (test code = Normal 39230-0) [facility] GLUCOSE (AUTOMATED)2020-04-08 12:46:00 Test Item Value Reference Range Interpretation Comments POCT GLU (test code = 0110769932) 109 mg/dL 70-110 Lab Interpretation (test code = Normal 04375-7) [facility] WITH [id number] 10:21:00 Test Item Value Reference Range Interpretation [...] RDW-SD (test code = 48.4 fL 38.5-51.6 80407-6) RDW-CV (test code = 15.0 % 12.1-15.4 788-0) PLT (test code = See_Comment L [Automated 777-3) message] The system which generated this result transmitted reference range : 150 - 328 10*3/?L. The reference range was not used to interpret this result as normal/abnormal . MPV (test code = 11.4 fL 9.8-13 28893-9) NRBC/100 WBC (test See_Comment [Automat ed code = 9205147738) message] The system which generated this result transmitted reference range : 0.0 - 10.0 /100 WBCs. The reference range was not used to interpret this result as normal/abnormal . NRBC x10^3 (test code <0.01 See_Comment [Auto mated = 9553890526) message] The system which generated this result transmitted reference range : 10*3/?L. The reference range was not used to interpret this result as normal/abnormal . GRAN MAT (NEUT) % 84.9 % (test code = 770-8) IMM GRAN % (test code 0.80 % = 6499873911) LYMPH % (test code = 7.9 % 736-9) MONO % (test code = 5.3 % 5905-5) EOS % (test code = 0.3 % 713-8) BASO % (test code = 0.8 % 706-2) GRAN MAT x10^3(ANC) 3.34 10*3/uL 1.99-6.95 (test code = 4779519422) IMM GRAN x10^3 (test 0.03 10*3/uL 0-0.06 code = 5134180699) LYMPH x10^3 (test 0.31 10*3/uL 1.09-3.23 L code = 731-0) MONO x10^3 (test code 0.21 10*3/uL 0.36-1.02 L = 742-7) EOS x10^3 (test code <0.03 0.06-0.53 L = 711-2) BASO x10^3 (test code 0.03 10*3/uL 0.01-0.09 = 704-7) GOLDEN CELLS (test code 2+ See_Comment A [Auto mated = 5090-9) message] The system which generated this result transmitted reference range : (none). The reference range was not used to interpret this result as normal/abnormal . BANDS (test code = MARKED INCREASED A 6443247371) DOHLE BODIES (test Present A code = 7792-5) TOXIC CHANGES (test Present A code = 803-7) Lab Interpretation Abnormal (test code = 92500-7) [facility] METABOLIC PANEL (NA, K, CL, CO2, GLUCOSE, BUN, CREATININE, CA)2020-04-08 10:02:00 Test Item Value Reference Range Interpretation Comments NA (test code = 138 mmol/L 135-145 1408120406) K (test code = 4.1 mmol/L 3.5-5 8148437226) CL (test code = 109 mmol/L 98-108 H 6929252679) CO2 TOTAL (test code = 25 mmol/L 23-31 6563105646) AGAP (test code = 2-16 2510122258) BUN (test code = 26 mg/dL 7-23 H 8305118185) GLUCOSE (test code = 103 mg/dL 70-110 3999615017) CREATININE (test code = 0.90 mg/dL 0.6-1.25 9588383945) CALCIUM (test code = 8.4 mg/dL 8.6-10.6 L 7234016873) eGFR Calculation mL/min/1.73m2 (Non-) (test code = 1135190056) eGFR Calculation mL/min/1.73m2 () (test code = 0509509297) GILBERTO (test code = GILBERTO) Association of [...] tests). Lab Interpretation Abnormal (test code = 29757-4) [facility] 10:02:00 Test Item Value Reference Range Interpretation Comments MAGNESIUM (test code = 4102806975) 2.6 mg/dL 1.7-2.4 H Lab Interpretation (test code = Abnormal 87616-8) [facility] + LACTIC [id number] 09:43:00 Test Item Value Reference Range Interpretation Comments PH (test code = 7.32-7.42 3939862790) PCO2 PANKAJ (test code = See_Comment [Auto mated 9177668180) message] The sy stem which generated this result transmitted reference range : 41 - 51 mmHg. The reference range was not used to interpret this result as normal/abnormal . PO2 PANKAJ (test code = See_Comment [Autom ated 2768791424) message] The sy stem which generated this result transmitted reference range : 25 - 40 mmHg. The reference range was not used to interpret this result as normal/abnormal . HCO3 PANKAJ (test code = See_Comment [Auto mated 1279712389) message] The sy stem which generated this result transmitted reference range : 24 - 28 mEq/L. The reference range was not used to interpret this result as normal/abnormal . AC VBE(BEAKER) (test mEq/L code = 3183362044) THB PANKAJ (test code = 11.4 g/dL 13.5-18 L 9265321996) %O2HB PANKAJ (test code = 64.9 % 52-63 H 6148327592) %COHB PANKAJ (test code = 1.0 % 0-1.5 2470071119) %METHB PANKAJ (test code = 0.3 % 0.4-1.5 L 4521607703) VOL%O2 PANKAJ (test code = 10.4 % 6-12 9143851836) NA (test code = 138 mmol/L 135-145 3570150877) K+ (test code = 4.1 mmol/L 3.5-5 9239468971) AC CA IONZ (test code = 4.90 mg/dL 4.5-5.3 0229851299) GLUCOSE (test code = 98 mg/dL 70-110 9383503277) LACTIC ACID (test code 1.90 mmol/L = 0443644050) Lab Interpretation Abnormal (test code = 19020-5) [facility]2020-[facility]-08 04:25:00 Test Item Value Reference Range Interpretation Comments POCT GLU (test code = 2994575361) 106 mg/dL 70-110 Lab Interpretation (test code = Normal 01486-9) [facility] [id number] 22:55:21Impression: Stable findings with no new changes.Exam: [...] unchanged.IMPRESSIONIm pression: Stable findings with no new changes.[facility] MRSA / MSSA Screen by Estefanía [id number] 19:28:00 Test Item Value Reference Range Interpretation Comments MSSA Screen by PCREstefanía (test code Negative Negative = 33147-6) MRSA/MSSA Positive? (test code = No No 2484327371) Lab Interpretation (test code = Normal 41722-9) [facility]2020-04-07 17:01:00 Test Item Value Reference Range Interpretation Comments POCT GLU (test code = 6272451214) 95 mg/dL 70-110 Lab Interpretation (test code = Normal 67909-1) [facility] + LACTIC [id number] 14:15:00 Test Item Value Reference Range Interpretation Comments PH (test code = 2) 7.35-7.45 L PCO2 (test code = See_Comment [Automate d 5489484497) message] The sy stem which generated this result transmitted reference range : 35 - 45 mmHg. The reference range was not used to interpret this result as normal/abnormal . PO2 (test code = See_Comment H [Automated 3033238796) message] The sy stem which generated this result transmitted reference range : 80 - 100 mmHg. The reference range was not used to interpret this result as normal/abnormal . HCO3 (test code = See_Comment L [Automate d 1883126843) message] The sy stem which generated this result transmitted reference range : 22 - 26 mEq/L. The reference range was not used to interpret this result as normal/abnormal . BE (test code = See_Comment L [Automated 1299128873) message] The sy stem which generated this result transmitted reference range : -3.0 - 3.0 mEq/ L. The reference r meredith was not used to interpret this result as normal/abnormal . THB (test code = 9.6 g/dL 13.5-18 L 1925127066) %O2HB (test code = 98.6 % 94-99 4791542773) %COHB ART (test code = 0.3 % 0-1.5 6051074513) %METHB ART (test code = 0.0 % 0.4-1.5 L 9985097742) VOL%O2 ART (test code = NA 0063386005) NA (test code = 131 mmol/L 135-145 L 4956759841) K+ (test code = 4.3 mmol/L 3.5-5 3884059738) AC CA IONZ (test code = 4.60 mg/dL 4.5-5.3 8333941588) GLUCOSE (test code = 147 mg/dL 70-110 H 7496054092) LACTIC ACID (test code 3.12 mmol/L 0.5-2.2 H = 5490795677) Lab Interpretation Abnormal (test code = 82635-6) [facility]Laky[facility] Whole [id number] 14:00:00 Test Item Value Reference Range Interpretation Comments LACTIC ACID (test code = 3.12 mmol/L 9536491104) [facility] GLUCOSE (AUTOMATED)2020-04-07 12:53:00 Test Item Value Reference Range Interpretation Comments POCT GLU (test code = 6007891957) 140 mg/dL 70-110 H Lab Interpretation (test code = Abnormal 82119-5) [facility] + LACTIC [id number] 12:01:00 Test Item Value Reference Range Interpretation Comments PH (test code = 2) 7.35-7.45 L PCO2 (test code = See_Comment L [Automate d 9602093931) message] The sy stem which generated this result transmitted reference range : 35 - 45 mmHg. The reference range was not used to interpret this result as normal/abnormal . PO2 (test code = See_Comment H [Automated 6731248990) message] The sy stem which generated this result transmitted reference range : 80 - 100 mmHg. The reference range was not used to interpret this result as normal/abnormal . HCO3 (test code = See_Comment L [Automate d 3145501496) message] The sy stem which generated this result transmitted reference range : 22 - 26 mEq/L. The reference range was not used to interpret this result as normal/abnormal . BE (test code = See_Comment L [Automated 2433059861) message] The sy stem which generated this result transmitted reference range : -3.0 - 3.0 mEq/ L. The reference r meredith was not used to interpret this result as normal/abnormal . THB (test code = 10.8 g/dL 13.5-18 L 5205247777) %O2HB (test code = 98.8 % 94-99 0547053185) %COHB ART (test code = 0.3 % 0-1.5 4267694047) %METHB ART (test code = 0.0 % 0.4-1.5 L 4046709985) VOL%O2 ART (test code = 15.4 % 15-23 6576499828) NA (test code = 126 mmol/L 135-145 L 4449447924) K+ (test code = 4.3 mmol/L 3.5-5 6907145286) AC CA IONZ (test code = 4.70 mg/dL 4.5-5.3 7579823545) GLUCOSE (test code = 144 mg/dL 70-110 H 9817349324) LACTIC ACID (test code 2.79 mmol/L = 9095767319) Lab Interpretation Abnormal (test code = 21555-9) [facility] [id number] 11:44:00 Test Item Value Reference Range Interpretation Comments URINE CULTURE (test No aerobic growth (< code = 630-4) 1000 CFU/mL) [facility] WITH [id number] 09:53:00 Test Item Value Reference Range Interpretation Comments WBC (test code = See_Comment L [Automated 9090-2) message] The sy stem which [...] RDW-SD (test code = 48.8 fL 38.5-51.6 54666-0) RDW-CV (test code = 15.0 % 12.1-15.4 788-0) PLT (test code = See_Comment L [Automated 777-3) message] The sy stem which generated this result transmitted reference range : 150 - 328 10*3/ ?L. The reference r meredith was not used to interpret this result as normal/abnormal . MPV (test code = 11.8 fL 9.8-13 65158-6) IPF % (test code = 6.5 % 1.2-10.7 Platelet count 7289334878) measured by fluorescence method. NRBC/100 WBC (test See_Comment [Automat ed code = 0621938259) message] The system which generated this result transmitted reference range : 0.0 - 10.0 /100 WBCs. The refer ence range was not u sed to interpret th is result as normal/abnormal . NRBC x10^3 (test code <0.01 See_Comment [Auto mated = 9506158865) message] The s ystem which generated this result transmitted reference range : 10*3/?L. The reference range was not used to interpret this result as normal/abnormal . SEG % (test code = 20 % 33-76 L 19590-1) BAND % (test code = 45 % 0-1 H 20990-8) META % (test code = 9 % See_Comment H [Automa dain 96092-9) message] The sy stem which generated this result transmitted reference range : <=0. The refere nce range was not u sed to interpret th is result as normal/abnormal . MYELO % (test code = 1 % See_Comment H [Autom ated 22025-0) message] The sy stem which generated this result transmitted reference range : <=0. The refere nce range was not u sed to interpret th is result as normal/abnormal . LYMPH % (test code = 20 % 14-54 92619-1) MONO % (test code = 5 % 0-4 H 05350-5) ANC (test code = 1.40 10*3/uL 1.99-6.95 L 8980691413) GOLDEN CELLS (test code 2+ See_Comment A [...] 803-7) Lab Interpretation Abnormal (test code = 08536-5) [facility] METABOLIC PANEL (NA, K, CL, CO2, GLUCOSE, BUN, CREATININE, CA)2020-04-07 09:21:00 Test Item Value Reference Range Interpretation Comments NA (test code = 137 mmol/L 135-145 7680276120) K (test code = 4.6 mmol/L 3.5-5 6833479807) CL (test code = 110 mmol/L 98-108 H 8457867725) CO2 TOTAL (test code = 17 mmol/L 23-31 L 6256590664) AGAP (test code = 2-16 6519796026) BUN (test code = 24 mg/dL 7-23 H 9372461023) GLUCOSE (test code = 132 mg/dL 70-110 H 9257999147) CREATININE (test code = 1.23 mg/dL 0.6-1.25 9679455734) CALCIUM (test code = 8.0 mg/dL 8.6-10.6 L 8937209944) eGFR Calculation mL/min/1.73m2 (Non-) (test code = 8211602604) eGFR Calculation mL/min/1.73m2 () (test code = 9585264850) GILBERTO (test code = GILBERTO) Association of [...] tests). Lab Interpretation Abnormal (test code = 90500-2) [facility] 09:19:00 Test Item Value Reference Range Interpretation Comments MAGNESIUM (test code = 4584209916) 2.9 mg/dL 1.7-2.4 H Lab Interpretation (test code = Abnormal 72441-5) [facility]2020-04-07 04:37:00 Test Item Value Reference Range Interpretation Comments POCT GLU (test code = 4985362004) 111 mg/dL 70-110 H Lab Interpretation (test code = Abnormal 15632-3) [facility]HCV [id number] 02:35:00 Test Item Value Reference Range Interpretation Comments HCV Ab (test code = 47699-7) Negative HCV Semi-Quantitative (test code = 77292-6) [facility] LACTIC [id number] 02:15:00 Test Item Value Reference Range Interpretation Comments PH (test code = 7.32-7.42 L 9780230589) PCO2 PANKAJ (test code = See_Comment L [Auto mated 6020065631) message] The sy stem which generated this result transmitted reference range : 41 - 51 mmHg. The reference range was not used to interpret this result as normal/abnormal . PO2 PANKAJ (test code = See_Comment HH [Autom ated 9706829272) message] The sy stem which generated this result transmitted reference range : 25 - 40 mmHg. The reference range was not used to interpret this result as normal/abnormal . HCO3 PANKAJ (test code = See_Comment L [Auto mated 5178918833) message] The sy stem which generated this result transmitted reference range : 24 - 28 mEq/L. The reference range was not used to interpret this result as normal/abnormal . AC VBE(BEAKER) (test mEq/L code = 0458219014) THB PANKAJ (test code = 11.2 g/dL 13.5-18 L 9448661651) %O2HB PANKAJ (test code = 98.7 % 52-63 H 2210963254) %COHB PANKAJ (test code = 0.3 % 0-1.5 9180819865) %METHB PANKAJ (test code = 0.1 % 0.4-1.5 L 1127212049) VOL%O2 PANKAJ (test code = 15.9 % 6-12 H 6835242213) NA (test code = 136 mmol/L 135-145 4376978524) K+ (test code = 4.2 mmol/L 3.5-5 0509552451) AC CA IONZ (test code = 4.60 mg/dL 4.5-5.3 5579934632) GLUCOSE (test code = 108 mg/dL 70-110 2342612999) LACTIC ACID (test code 2.37 mmol/L = 0117372875) Lab Interpretation Abnormal (test code = 00051-9) [facility]COOX+NA+K+GLU+CA2+2020-04-07 01:54:00 Test Item Value Reference Range Interpretation Comments PH (test code = 2) 7.35-7.45 LL PCO2 (test code = See_Comment [Automate d message] 9208423758) The system [employer] generated this result transmit dain reference range : 35 - 45 mmHg. The reference range was not used to interpret this result as normal/abnormal . PO2 (test code = See_Comment H [Automated message] 2274772521) The system [employer] generated this result transmit dain reference range : 80 - 100 mmHg. The reference range was not used to interpret this result as normal/abnormal . HCO3 (test code = See_Comment L [Automate d message] 9458891721) The system [employer] generated this result transmit dain reference range : 22 - 26 mEq/L. The reference range was not used to interpret this result as normal/abnormal . BE (test code = See_Comment L [Automated message] 0629757722) The system [employer] generated this result transmit dain reference range : -3.0 - 3.0 mEq/ L. The reference r meredith was not used to interpret this result as normal/abnormal . THB (test code = 10.6 g/dL 13.5-18 L 9892245882) %O2HB (test code = 99.0 % 94-99 1456114549) %COHB ART (test code = 0.3 % 0-1.5 2476077789) %METHB ART (test code = 0.3 % 0.4-1.5 L 5310422163) VOL%O2 ART (test code = 15.3 % 15-23 3372234215) NA (test code = 136 mmol/L 135-145 8904685732) K+ (test code = 3.1 mmol/L 3.5-5 L 5547188203) AC CA IONZ (test code = 4.30 mg/dL 4.5-5.3 L 1152373573) GLUCOSE (test code = 113 mg/dL 70-110 H 9314849485) Lab Interpretation Abnormal (test code = 60778-4) [facility]COOX+NA+K+GLU+CA2+2020-04-07 01:53:00 Test Item Value Reference Range Interpretation Comments PH (test code = 2) 7.35-7.45 PCO2 (test code = See_Comment L [Automate d message] 0632924481) The system [employer] generated this result transmit dain reference range : 35 - 45 mmHg. The reference range was not used to interpret this result as normal/abnormal . PO2 (test code = See_Comment H [Automated message] 5549811645) The system [employer] generated this result transmit dain reference range : 80 - 100 mmHg. The reference range was not used to interpret this result as normal/abnormal . HCO3 (test code = See_Comment L [Automate d message] 3808264083) The system [employer] generated this result transmit dain reference range : 22 - 26 mEq/L. The reference range was not used to interpret this result as normal/abnormal . BE (test code = See_Comment L [Automated message] 9348319518) The system [employer] generated this result transmit dain reference range : -3.0 - 3.0 mEq/ L. The reference r meredith was not used to interpret this result as normal/abnormal . THB (test code = 13.1 g/dL 13.5-18 L 0972636028) %O2HB (test code = 98.9 % 94-99 1803625869) %COHB ART (test code = 0.1 % 0-1.5 3572868929) %METHB ART (test code = 0.6 % 0.4-1.5 4066711728) VOL%O2 ART (test code = 19.3 % 15-23 8869348314) NA (test code = 132 mmol/L 135-145 L 3957217703) K+ (test code = 4.2 mmol/L 3.5-5 8879146354) AC CA IONZ (test code = 4.60 mg/dL 4.5-5.3 2823724186) GLUCOSE (test code = 99 mg/dL 70-110 9985421592) Lab Interpretation Abnormal (test code = 54224-0) [facility] WITH [id number] 01:29:00 Test Item Value Reference Range Interpretation Comments HIV Negative Negative Semi-quantitative (test code = 96173-6) GILBERTO (test code = Non-reactive for HIV-1 GILBERTO) antigen and HIV-1/HIV-2 antibodies. ?No laboratory evidence of HIV infection. ?Repeat in 2-4 weeks if acute HIV infection is suspected. [facility] GLUCOSE (AUTOMATED)2020-04-07 00:40:00 Test Item Value Reference Range Interpretation Comments POCT GLU (test code = 0852065844) 100 mg/dL 70-110 Lab Interpretation (test code = Normal 60509-2) [facility] GLUCOSE (AUTOMATED)2020-04-07 00:06:00 Test Item Value Reference Range Interpretation Comments POCT GLU (test code = 2157043256) 116 mg/dL 70-110 H Lab Interpretation (test code = Abnormal 50175-9) [facility]2020-04-06 22:48:00 Test Item Value Reference Range Interpretation Comments POCT GLU (test code = 5685032186) 94 mg/dL 70-110 Lab Interpretation (test code = Normal 11232-1) [facility] 1 [id number] 21:06:45 1. Interval placement of right internal [...] reviewed this study and agree with the abovereport.[facility] WITH [id number] 20:15:00 Test Item Value Reference Range Interpretation Comments WBC (test code = See_Comment LL [Automated 9690-2) message] The sy stem which [...] RDW-SD (test code = 49.2 fL 38.5-51.6 13575-5) RDW-CV (test code = 14.7 % 12.1-15.4 788-0) PLT (test code = See_Comment L [Automated 777-3) message] The sy stem which generated this result transmitted reference range : 150 - 328 10*3/ ?L. The reference r meredith was not used to interpret this result as normal/abnormal . MPV (test code = 12.1 fL 9.8-13 25028-3) NRBC/100 WBC (test See_Comment [Automat ed code = 5628448653) message] The system which generated this result transmitted reference range : 0.0 - 10.0 /100 WBCs. The refer ence range was not u sed to interpret th is result as normal/abnormal . NRBC x10^3 (test code <0.01 See_Comment [Auto mated = 7033844778) message] The s ystem which generated this result transmitted reference range : 10*3/?L. The reference range was not used to interpret this result as normal/abnormal . SEG % (test code = 38 % 33-76 91304-3) BAND % (test code = 28 % 0-1 H 08951-2) META % (test code = 4 % See_Comment H [Automa dain 87164-3) message] The sy stem which generated this result transmitted reference range : <=0. The refere nce range was not u sed to interpret th is result as normal/abnormal . MYELO % (test code = 6 % See_Comment H [Autom ated 23109-2) message] The sy stem which generated this result transmitted reference range : <=0. The refere nce range was not u sed to interpret th is result as normal/abnormal . LYMPH % (test code = 16 % 14-54 63406-8) MONO % (test code = 8 % 0-4 H 09948-9) ANC (test code = 0.40 10*3/uL 1.99-6.95 L 7078568873) GOLDEN CELLS (test code 3+ See_Comment A [Auto mated = 7790-9) message] The sy stem which generated this result transmitted reference range : (none). The reference range was not used to interpret this result as normal/abnormal . DOHLE BODIES (test Present A code = 7792-5) Lab Interpretation Abnormal (test code = 84344-2) [facility] 19:55[facility]00 Test Item Value Reference Range Interpretation Comments APTT Patient (test code See_Comment H [Au tomated message] = 3173-2) The system whic h generated this result transmitted ref erence range: 26 - 36 Seconds. The reference range was not used to int erpret this result as normal/abnormal . Lab Interpretation (test Abnormal code = 50753-1) [facility] HospitalPROTHROMBIN [facility] / [id number] 19:55:00 Test Item Value Reference Range Interpretation [...] tions. Lab Interpretation (test Abnormal code = 75947-4) [facility] MET[facility]OLIC PANEL (75078)2020-04-06 19:50:00 Test Item Value Reference Range Interpretation Comments NA (test code = 137 mmol/L 135-145 7264359136) K (test code = 3.6 mmol/L 3.5-5 1896664005) CL (test code = 109 mmol/L 98-108 H 3075506687) CO2 TOTAL (test code = 18 mmol/L 23-31 L 4814172066) AGAP (test code = 2-16 4966689902) BUN (test code = 27 mg/dL 7-23 H 9387103772) GLUCOSE (test code = 91 mg/dL 70-110 1842678183) CREATININE (test code = 1.38 mg/dL 0.6-1.25 H 3409035394) TOTAL BILI (test code = 1.0 mg/dL 0.1-1.7 9618075430) CALCIUM (test code = 8.0 mg/dL 8.6-10.6 L 3733622495) T PROTEIN (test code = 4.3 g/dL 6.3-8.2 L 2750546841) ALBUMIN (test code = 2.7 g/dL 3.5-5 L 9724211251) ALK PHOS (test code = <20 34-122 L 6077112683) ALTv (test code = 9 U/L 5-50 1742-6) AST(SGOT) (test code = 21 U/L 13-40 6641082545) eGFR Calculation mL/min/1.73m2 (Non-) (test code = 5858905087) eGFR Calculation mL/min/1.73m2 () (test code = 8168476640) GILBERTO (test code = GILBERTO) Association of [...] tests). Lab Interpretation Abnormal (test code = 75857-1) [facility] METABOLIC PANEL (NA, K, CL, CO2, GLUCOSE, BUN, CREATININE, CA)2020-04-06 19:50:00 Test Item Value Reference Range Interpretation Comments NA (test code = 137 mmol/L 135-145 7103655876) K (test code = 3.6 mmol/L 3.5-5 8894238506) CL (test code = 109 mmol/L 98-108 H 4404740333) CO2 TOTAL (test code = 18 mmol/L 23-31 L 3290139020) AGAP (test code = 2-16 0765795182) BUN (test code = 27 mg/dL 7-23 H 9039990528) GLUCOSE (test code = 91 mg/dL 70-110 4741244318) CREATININE (test code = 1.38 mg/dL 0.6-1.25 H 1653993547) CALCIUM (test code = 8.0 mg/dL 8.6-10.6 L 0274030662) eGFR Calculation mL/min/1.73m2 (Non-) (test code = 3381817378) eGFR Calculation mL/min/1.73m2 () (test code = 1957523954) GILBERTO (test code = GILBERTO) Association of [...] tests). Lab Interpretation Abnormal (test code = 72404-9) [facility]2020-08-14 19:44:00 Test Item Value Reference Range Interpretation Comments MAGNESIUM (test code = 2126640391) 1.7 mg/dL 1.7-2.4 Lab Interpretation (test code = Normal 28484-9) [facility] + LACTIC [id number] 19:25:00 Test Item Value Reference Range Interpretation Comments PH (test code = 7.32-7.42 L 9684708678) PCO2 PANKAJ (test code = See_Comment L [Auto mated 1753795343) message] The sy stem which generated this result transmitted reference range : 41 - 51 mmHg. The reference range was not used to interpret this result as normal/abnormal . PO2 PANKAJ (test code = See_Comment H [Autom ated 8997319919) message] The sy stem which generated this result transmitted reference range : 25 - 40 mmHg. The reference range was not used to interpret this result as normal/abnormal . HCO3 PANKAJ (test code = See_Comment L [Auto mated 7058364465) message] The sy stem which generated this result transmitted reference range : 24 - 28 mEq/L. The reference range was not used to interpret this result as normal/abnormal . AC VBE(BEAKER) (test mEq/L code = 3747112626) THB PANKAJ (test code = 10.1 g/dL 13.5-18 L 7064242997) %O2HB PANKAJ (test code = 84.0 % 52-63 H 0319991087) %COHB PANKAJ (test code = 0.6 % 0-1.5 0363186076) %METHB PANKAJ (test code = 0.3 % 0.4-1.5 L 4174361569) VOL%O2 PANKAJ (test code = 12.0 % 6-12 2045668403) NA (test code = 135 mmol/L 135-145 4760069966) K+ (test code = 3.5 mmol/L 3.5-5 6344921282) AC CA IONZ (test code = 4.50 mg/dL 4.5-5.3 7901614813) GLUCOSE (test code = 87 mg/dL 70-110 3845907415) LACTIC ACID (test code 3.34 mmol/L = 7776193271) Lab Interpretation Abnormal (test code = 54087-3) [facility] PANEL 20 + LACTIC [id number] 19:19:00 Test Item Value Reference Range Interpretation Comments PH (test code = 2) 7.35-7.45 L PCO2 (test code = See_Comment L [Automate d 8075034553) message] The sy stem which generated this result transmitted reference range : 35 - 45 mmHg. The reference range was not used to interpret this result as normal/abnormal . PO2 (test code = See_Comment H [Automated 4651354925) message] The sy stem which generated this result transmitted reference range : 80 - 100 mmHg. The reference range was not used to interpret this result as normal/abnormal . HCO3 (test code = See_Comment L [Automate d 8343827612) message] The sy stem which generated this result transmitted reference range : 22 - 26 mEq/L. The reference range was not used to interpret this result as normal/abnormal . BE (test code = See_Comment L [Automated 4968625653) message] The sy stem which generated this result transmitted reference range : -3.0 - 3.0 mEq/ L. The reference r meredith was not used to interpret this result as normal/abnormal . THB (test code = 10.4 g/dL 13.5-18 L 4494497219) %O2HB (test code = 98.3 % 94-99 0841251216) %COHB ART (test code = 0.3 % 0-1.5 8898586175) %METHB ART (test code = 0.3 % 0.4-1.5 L 8633416015) VOL%O2 ART (test code = 14.8 % 15-23 L 2427305745) NA (test code = 135 mmol/L 135-145 0186552417) K+ (test code = 3.5 mmol/L 3.5-5 8108603494) AC CA IONZ (test code = 4.50 mg/dL 4.5-5.3 7583420054) GLUCOSE (test code = 96 mg/dL 70-110 3235484095) LACTIC ACID (test code 2.95 mmol/L = 5390349150) Lab Interpretation Abnormal (test code = 23502-1) [facility] [id number] 16:51:00 Test Item Value Reference Range Interpretation Comments Case Report (test code Surgical Pathology ? ? = [id number]) ?Case: [id number] ? Authorizing Provider: ?Bia Pedro MD ?Collected: ? 04/03/2020 1513 ?Ordering Location: ? ? [facility] OR ? Received: ?04/03/2020 1657 ? Department ? Pathologist: ? Nimisha Galloway MD PHD ?Specimens: ? A) - COLON, total abdominal colectomy ? B) - COLON, donuts x2 ? Final Diagnosis (test v0qzjKYsZNQoc4bgLWLwaM code = 0813441836) FuZzEwMzNcZnRuYmpcdWMx ZGnejlYqJUlzh3OkX0CmMi AwMFxhbnNpXGRlZmxhbmcx WYIlRWC4lyFhJKKfTYkrGX RkPAulTr4reRSavFwhDvVm CGWmp4owbpWZpenxdDo8j6 maGGXqWaC3oWFkYNnyF1sf lxJdrOCoGTHmWJe6vH92DI QucB4olEAxXZggroKlOBnh nzOokpTkRwm7GUHiO7ewZC UvSPOuP6OmET2nOZHwNli3 ZLI5MGJ4jLucm8P3fMGmpC NwrWmdOwYlSvVuVKKRk5Kh MEj8qOlbT8TeLRAhZqY7wS QgUGFyYWdyYXBoIEZvbnQ7 eFttM6LqQVMkOsZ7bSNiVB MmPOepXJSsSk0trXn4rIhe IgqnJWR2Upb9QF5wps06gq m3sDmwBHLrpepmPsG4EYmp QHDxtsqvAAt5XTepJOHoeA WyJASdoNVoM5XxONfmMW0y zsv5GcMgNI9ealmtPBfeXY RnDBH0HoBuAEJqi4Khbwzw NgPfhd0yil87QTL7a6BepB aiDJT5HFN3LeAqRp5rkCWn SOFqOK9aVjCggKNpNPViqq 77sKxzIUokvcAdqL4bEjIb XHShcDWeOKWyXO2rkMNeVY XvqK8bivvpXHGfTmKkpzsa JVEczDrevtTlRz0duVbnAF L6IDuuG7nkiS1gRmS2SDhz D3yssU5hECs0XBmcnYV4GD JasS4zTA3tkwkbq2akIAK5 BRtdPTUhacK1noLbJXJhrS GoH2FvpG34GnAhbGWqD0Se kN3wQAucCUXtqlp4RiPeHn 2tePLjyJK7DKvjIimpFSnn XHBnbmNvbnRccGduZGVjXH BsYWluXHBsYWluXGYwXGZz MtAwtCmssLsobL2vNnViXz MyMFxwbGFpblxmMVxmczIw WNTftqXWVpDYB3pIJzdlLQ 4UBHobQmCFUWZEIB0ZQjvq FEFgFGEkDF9vWdJED2YZOF AjB09CQ6RGSUjVPhODCGDX HRRAFp1VU41XHTQLWY6ABk HXUFhIHIVTC38CERFBKMBP PiFHBXABKIZON3pRNRseCM MtUQZxOHGbI7GJYPYXG3YV M29wVNNuxsWxRVSzKCXJTI eAGIGHBMVMBWDHL6OLEA5U JJ6GBNuHHCQvY6xRQAAPHE LiN70IJ77QLqMLJwAMVShF ZHJDSEYFAI3VDWoYSsUWDX yDLnoVQLQRY1OKSQGecFOb FFYjSXHqAD1OV2GPRLNPSQ 9OXHBhciAgICAgLSBOTyBF EkkXZM0ZYYSBEpVLTZKGN7 ZDYV7MD0BNF2fDIVejLLGx IDUnZL0uNE9RFCBAXpSJHM BTRVNTSUxFIFNFUlJBVEVE BAJUSP0QVIRdmMHgQTNdVD AtIFJFQUNUSVZFIExZTVBI BX4ZDXABYDKuxbZnEBExHU CANNRJTDFrUvJBLYHSFH3X HX9RXgqZUgOrzJEnTRYdwy xwbGFpblxmMVxmczIyXGxh ivefTGQeJDjrG9kbRxGqCV KzmMhhXMqvk5RbEXIvEIFn SFtrhiKpLONah6uqJHJzDn S6oWZxQMTOOfACCpLdEC9k EI5aVQPrMUVhVLwfAbSHAJ xwbGFpblxmMVxmczIwXHBh zvcyCEP2x0krdUDjAUZevF LbDrRlEFCmTJGsz2mmOFZl bGFuZzEwMzNcZnRuYmpcdW LrDFMsRfCeg8hiu816pEAr v1djWPFuBhO6hGEiCCRtcX ymidh7yUmhOpFfLWQsz6kl cyBcZmNoYXJzZXQwIEFyaW KbA132IPTxAUkof6vit6Xf YSOjoTCiz2H8AZSVNDcxKv BuR277h5fhd7uflaFtnJG3 NTFxSSX6FJjsruPcfjN8EE tavYQgXmV5NOhijwUyDNpe lbYcjeDcWfh5WMBvZ377RW V3vGdwb3kvFIU9TKSdQSIa PwbqFx0ooVCmJ237QZApYJ GZZCLlpPy2ILEeneYkraLw cGHLz361L010j1naLGIpjy CrfXdAcxvsv0znQ069SEYl cGVydzEyMjQwXHBhcGVyaD G2MPMfMY6gvdlfJOemYMfj ZZHlimQ1HKYtrOKrK9ZrHL WiDH0xqbwhXXT3CNxpRRMr OOM7IuGvXGUtd2Dnogm0Wy Hejp2neg60CBE4z7KipQxt PRL1DRP2HjOvWg3alCEkPN EzXC6tKmQawMJyXWUwcx23 yOqcANthexDlcR2cNzCbVW BupWOkWIHxUI5adUIsPGAy wI5aquprKLYbOxBibhvtWD HnlTdbvcNbOd6qyRyxQGN6 JWkdU5rdrT6fKwJ2QRzpT4 lheC4gTSy2BOvopSU6HGSl aE1mFG6lwvfza9axGYwvLZ vuYWIdfpC5pkV1VOSftGFc Y8WksK9kNKFoIA0grkqtg8 dlLUY9ZWieNUUaFBN0UiHo MAIke8Drtgc3AfCht1TrwW QrJXyrH86yb314VMWmwaSv F8qadCSjjwwkpYUfebanKV pvmrD2OVVrCWNwAPpuCMEh XGZzMjBcbGFuZzEwMzNcaG ljaFxmMVxkYmNoXGYxXGxv O6edHrLaM6BsOMTnBkYwrI NrGBrgxQG3ZOAtEQBzl93y aXy4FUCcoxdic0MmOKYujF CkhUJhoP0snkZte8nvFDOe KLEhHSQaO6SzBAA4wZJiDY VasKDebSE9CI0gzpFyTN5f ZGUgYnkgcmVzaWRlbnRzLC EgEKias0kcPG3dTGAtxVrp rA4uxJP9QQQoo3ywxZFxhT Swj0cte7BykpYqFZvtSBCx KHwnELGnHGJsTM9rLIPijW CurrNws4Q7CojkcLMdmcaz NkwsmwH4HXbozsgdQTSrUC ebB0cjSlOjQUKpjGbwYywz b3WfQZOjZTVjStrdyGFklW 0= Clinical Information Large bowel (test code = obstruction [K56.609] 1519824513) Gross Description (test u8ouaJFeJIMfnNNjUrWdWK code = 6812341116) CbWNWrs9sdDIFrbQBoAsOj MzNcZnRuYmpcdWMxXGRlZm Qvi1ofd083eLHxb3orWAWa HqC4bTFmINHayTHyF602GZ WqOSgap5yof2WjPNBvvHIm g1F5RQJXjehvwLl2eOgcB0 2ky0Y3RsizP2ijHZJeWVdc HNFnPEwagVTnGEY8XEFuMM M3ZWmgekYxrmM9UXlyyYPb GjJ8PAj3e5tctImtSLQmTC P2d5lvNBnpufTiST3bbb7z fKj5l5hodtHhJIIgBNMgbR VEVFLhU3NnyLkmGl1akZh0 eJtaVjhaWBR3Gwi0QJ0hmp 33gdq9mLrxWLQipkicNfP9 OEpxPTLfkdoeMEr6EFlzSN FwuVKqWGJarXXmE2KmLVpr JP2gadm7VxUyLZ1rerqqBN pxRLDjUPO1OoSgKOAxd8Fz esrfXkZzae1qrz84LTA6t6 LqyQhsEKZ3EUS7AeYjOc0s rMWnDHTpNJ8rRnTwsFFjRT Nkbd86rIavTBxxlhTyvQ9h HaVnKBEsuPTvXUQdYL3dvL QuHXAmpS2mknjiHLIsAlDg egetAKAwoGrsmgKrUp5ezO cpRPZ3OVgtH3lfiV0fArS1 TBqbS8elzD5iGZu4DEcfvE R5FFHkfB6pRU1csxmgx8qh AAM0BGkvBGYpkwP6nnHwVH VjvDVpQ9QrsJ90EeZuoMHe E9AbrZ1eKEinOFAjfiu7Wm LlQd2hdYSykWY0DXumUviq YWdlXHBnbmNvbnRccGduZG VjXHBsYWluXHBsYWluXGYw LXTvEvKmtYybhCbseH4oLk BcZnMyMFxwbGFpblxmMVxm czIwIFNwZWNpbWVuIEEgaX ZtbuGkPOp8NHAbTnBbn8fb xMQwYKotYPHjc1p4sVC6yO ZqrKT7fVWjiRvwPG1uzTPm TGQBDA66zARnukKlV00pa8 0wUWAkpFGxQIGfFT4koK7r yQIdz0ypE7RtlBmaXJVftc ZwS35rt0rzkPHip5RhUFS7 i9SpfQKmy4emV3ZtlFiha0 FmY3nzWW3lWLqoGrLnC09b kN7mcMFjR9NmBChsQI0pNR EeUgUsS15qmX1dZBehhMI0 CBFbJHspmWhhIHH5XIFzAB GjqPLnjDdoMKfanOtvbM2s LRYwWSWaoPJbaxQqKX3ljG powVU9DfZtL28fYEjkmPZ7 WCRbDSB9vHYhMN6yJAgpi0 NzbHkgaWRlbnRpZmlhYmxl UALrvIQuXJp5ShFDdEGyi5 Kwz6BhIMxmRYDbit9dNZXt IS5zSOTul710dBT0mAPlSZ QtgNE4EOYusfCze6Gubv5h VGhlIHNwZWNpbWVuIGlzIG 5rPJ2zYDNurB3hOzVpmRPe BT91gJ5sy7IutRTtoMCsTu 9yZGVyLiBUaGVyZSBpcyBh OJJtffK1jBHqukSnhJckmW Z9WAtfNIxqJKqhBLNeF9Xo IAApe27iFSKayzC6aR46en YokVShXIB5AQGuVBCbaOYf PaUxC21oAqZaoOC7fIPaYE gcbZNnLE3wcwzwrkNeilIk BMQyV20eOwPnxVT2gMLmfD DraMtvGVreeBAzY7wxDjBH hd34yV3hgKK6hsM7vVBwnI UfabgrmDGjyCDxEA15bK4w NKBmw1LzN2cvLLbkv5Pjuk D4wWYrGh75VUczpXZnNWoe dGVuZGVkIGZvciBhIGxlbm t1cIIwAkGmAB0bZLOfYfWW qCRhrN3jpQbtQUFtx6Ffya EkZYUnLTcbn83ebLqoFD05 D87fAGBaboWfx8HvgDp4GF AlCMZ8OZ8qKCoxA5ByrwVt YXIsIHdpdGggYXJlYXMgb2 FeH15bAmqsm2YsilLwCZNc HOUfJZ4qEKRoizLfG2ruNo Pvoq2tTIMkGX2aKk77KTXd ZL7fXVoeWSmksGyvq3YudS whXWTbv1BjqvEbOJUmHBmy t38niGWhoZirY9slxlQqSR JnYEQssPPhRIM3LWdjES3d yA0qPCLio23iOA7uCDIgUc GkgNwdKKYwPUFqNP0ibV1c kefzjJNss5BzIT3cTTOzGI Rjv3ikqcOyxyP9CC6bfQgz rnKifsSnmKeaIRUca4MndB WuOGTvrH2fMSDwXCCuikOq za8rt9j7MLGiITCoZW3wSW JqcWhzVNtqZK0lUAUdmWPm dL9pyNqtlbG2jAOgGGPzvp BhbiBhZGRpdGlvbmFsIHdl yWyptSTymBGfERU3gxrzY8 ToTXSuEHYoULDqm0ViySR0 ofL4uUWpaXkxl9SeY2EuIC q5miM9yT3kAFFzQKFlURgi RMFooI8ym7wmuVLdlZzfb9 WcW4UgKXUbbLQtCTklePqm LT8cAFX9WWNaCCEoh3YmhP AmyJNlGpRhwbCmq2RuscPn TNLoWWLqeJIqixNfHN7osC gbSnodWV23TAYvWTbhNQTv UW1dlNSvZGF3wCEzIJZnh7 ZtcUGvQNCuCNKqq0EuaZaw IGxpbmUgYXQgdGhlIGJsaW 0eCURqQMnst6Mian74sfZx PVSkxQXhaUPdP1cvNPQnQU iuz1MmXNYht5D5DE5jNOwa IHJlbWFpbmluZyBtdWNvc2 Ibz7CqlFvjIPauONRaSLqj ZGWqFsL1a3HecUQntRNngH BhbmQgdGhlIHZpYWJpbGl0 xLEhJbC0iUOutqMgTOF1aN 4nKG2nkoroiqVdXR2zd9Vq ZhXzQ6Hmk1YvqMPgZJDgdf 1pbmVkLiBUaGUgcGVyaWNv cP4tgNRpKQPfiZ2zMFI0kH FpwJAglYBfyPRioCS3HMBt Jl6vZAFqkC7bc2lomSMxoM mzyLzzbu3hITJzZCNnwiqo toxsDoBnpAUmYdOdAQ24RF XtESnsWKvmJFE8UDR6LCYa aFMcs6nzupohVFQelSGxg2 KajIS6gOZxYZDtV5Jpr57n ZBLoVOPyvEXsqNF2HSJgyJ 4gQTEtQTEwLlxwYXJccGFy VZYqN9Nms89bA47lZUftzO SiAAOdGcQBra25kZ0xaHTh VRPhU4Eez94xzAChK0cdVG BlbiBmYWNlLCByZXByZXNl lmVaiIs5QEdwHBIpOJU9IF Hcj7EdhQXfZIPuX1Ywg84c jIBeF0zgTPDusfUkHSWiCB WyIQCbQFXqofNppYd6CChj ECZpZXC8OKjaIB3yMIYywF FyrF7hcQptjyJ7nLRbWTU8 bvagT5CuJNVdKKXgVQTckV Tod4WqbHD6sIJcGNIexzGI PYhhHqApyhBrBZ99SMFxbm Kbc2ZucYobsvCsy8UenADu e1RaYMGxBQE0XCelSBEnt2 hpbWFsIHRvIHRoZSBkaXN0 MG9dBKZvMHDtMFkkIANrBB MgZCO9FHJyeKPpa6KhkGN7 jOOsTSIlI1Xnt14aGH4oLM 08I43qLZCdpuHmu2UxpQKv wg2fSNJhSYEveSL0WF9pXZ UuMEPsWKgdTIElPHk6WTDq ABCqx5LfHMX4xknbY6IoJU NjYXIgZGlzdGFsIHRvIGRp b2MjxdEsEZFhuxRdNJHxHV LrSSYtihZkmZy9KHfgPOKo ESe2FNWspYFpe6XipML6kG WtFVUiW8Mhd58rWT7aFQ12 V55wOKCzmiShf6VjcWZasM D4IDluhB7xtZvzRKOrj2Mx bmRlZCBhcmVhXHBhciBBOT cvLQ5ge4yleCLhoGgiw8Uu C0FdUJGdbNUwHQCyDOJaFO SnybVvaAo8MNbmRWUgUODm FkXRik1dyeFcVWQ6nJ2eMI 9mIGludGVzdGluZSBhdHRh M0ppKGD7fqVgc1DnpRMpXF CunWXwP1SiJFvkprCvhgOd UZNrjULmz8HbqOY9eOTaKA YqmhWTOMS8MERhfI3fk1nw eBWizUeekPfrdp9fOYXtBC ick1quHOcfEVMugOQePUPo pcVacFevmE2gRgMmLlLnVY xwbGFpblxmMVxmczIwIFNw ZWNpbWVuIEIgaXMgcmVjZW p6RJMlOyBwq8nyoJSsAIxq IIP9bHDoKIOhODWvXIHhRQ 16W8FhvaZzUSloFEksvpAz WaErGLZpz5aprzugXY2pyT KpCPaiFVfgUsgyOP6fRESr djFss9QgVM9hUNSfTZ2oj1 RweD6vpJ5jYSYhnzK2saCq DC91XLkkXD64ZHuvVZ43UY NtIGFuZCAyLjUgeCAxLjkg zIWxMlemJ82hVmQZi6FjGT MpniE2wzTxchZfCirvXSB1 HCZyYXDoKTAiqCXyrV4qms OuldGbsGDppQY8JLXqCO26 nELltHnlXF7aFwXxRNVvae VEYT4GDptopIQiO8ObKEFo cyG8WWhjLEXzSEAvLHZsOE BzbWFsbGVyIGRvdWdobnV0 IGluIEIzLiBccGFyXHBhci PRLXN0LSVvuxKxkXtyNUEZ BCTkMEXsD6D3XMVhbVjmYH RpREY3xzMjQWTiA8PwYLCY EOJQH5DrHTDePBbwLLWxQE ZzMTZcbGFuZzEwMzNcaGlj aFxmMVxkYmNoXGYxXGxvY2 czBpMwX5PeCXKuDBKxV26w rLgfmZ0gXqNrGiAoGGxxPE IryKgggRwylP6zMwAiMsJh MFxwbGFpblxmMVxmczIwXH Bhcn0= Embedded Images (test code = 8780260412) [facility]Int[facility] 16:04:Aan Ahn MD ? ? 04/06/2020 11:06 AMIntubationUrgency: emergent Difficult airway General Information and Staff Patient location during procedure: ORAnesthesiologist: Cynthia Herring, MDResident/SEAFOOD SERVICE TEAM MEMBER: Dana Sampson DOPerformed: anesthesiologist and resident/[employer] SERVICE TEAM MEMBER Indications and Patient ConditionIndications for airway management: [...] from glidescope to advance tube into airway. [facility]Int[facility]2020-08-[facility] 16:04:Ana Ahn MD ? ? 04/08/2020 ?5:11 AMIntubationUrgency: emergent Difficult airway General Information and Staff Patient location during procedure: ORAnesthesiologist: Cynthia Hrering MDResident/SEAFOOD SERVICE TEAM MEMBER: Dana Sampson DOPerformed: anesthesiologist and resident/SEA[employer] SERVICE TEAM MEMBER Indications and Patient ConditionIndications for airway management: [...] glidescope to advance tube into airway. Additional MvbjpsykD1b on VL by CA1, multiple attempts by CA1 with ETT with stylet and bougie, unable to pass ETT through glottis. BVM between attempts. Glidescope stylet with ETT used by faculty under VL, attempt x 1 by faculty, g1v, atraumatic.[facility] HospitalXR [id number] 15:42:20 Large volume pneumoperitoneum. Continued gaseous distention and dilatation of the stomach and smallbowelfollowing total colectomy with ileoanal anastomosis may representpostoperative ileus. Findings regarding pneumoperitoneum were already communicated to [facility]. Preliminary Report Dictated by Resident: Bart De [...] project over the midline in the lowerabdomen. [facility], Radiant Results Inft User - [...] ileus.[facility]ings [facility]um [facility]Preliminary Report Dictated by Resident: Bart Klein reviewed this study and agree.I, Weston Wu MD., have reviewed this study andagree with theabove report. [facility] HospitalType and Screen - ONCE [id number] 15:18:48 Test Item Value Reference Range Interpretation Comments ABO & RH (test code O POSITIVE Performe d at [facility] = 20) Laboratory Serv [facility] s [id number] Free: [phone] A No. [id number] IAT (test code = Negative Performed a t [facility] 1185) Laboratory Serv [facility] 01 [facility] s [id number] Free: [phone] A No. [id number] [facility] HospitalXR CHEST 1 [id number] 15:09:51 1. ?Interval development of a large [...] the midline and inferiorly beyondthe diaphragm and ilaic-ls-tkty. Left diaphragm is elevated with interval development of large amount offree air noted under the diaphragms, better seen on concomitant abdominalx-ray. Lungs are clear without focal consolidation, pleural effusion orpneumothorax. The cardiomediastinal silhouette is stable. ?No acute osseousabnormalities. 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 Left diaphragm is elevated with interval development [...] have reviewed this study and agree with theabovereport.[facility] [id number] 14:52:Ana Schulz MD ? ? 04/06/2020 ?9:53 [...] no complications ? [facility] [id number] 14:52:Ana Schulz MD ? ? 04/06/2020 ?9:53 AM Central Line Date/Time: 04/06/2020 9:40 AMPerformed by: Cynthia Herring MD Central Line Placement: ?Ultrasound-Guided: ultrasound guided ? ?Patient Location: ?OR ?Indication: central venous access ?Staff: ?Supervising Anesthesiologist: ?Cynthia Herring MD ?Anesthesiologist: ?Hunsicker, Cynthia E, MDSterility and Timeout Preparation: provider hand hygiene [...] tolerated procedure well with no complications ? [facility] BranchAr[facility]ial [id number] 14:51:44Ana Syed MD ? ? 04/06/2020 ?9:52 AM Arterial Line Date/Time: 04/06/2020 9:21 AMPerformed by: Ana Syed MD Arterial Line Placement: ?Ultrasound-Guided: ultrasound guided ? ?Patient Location: ?OR ?Indication: continuous blood pressure monitoring and blood sampling needed ?Staff: ?Supervising Anesthesiologist: ?Cynthia Herring MD ?Resident: ?Aan Syed, MDProcedure Detail: ?Catheter Size: ?20 gauge ?Catheter Length: ?1 and 3/4 inch ?Catheter Type: ?Arrow ?Seldinger Technique?: No ? ?Laterality: ?Right ?Site: ?Radial artery ?Line Secured: ?Biopatch, Tegaderm andtape ?Preparation: ?Chloroprep, drape, sterile gloves, guidewire removed intact and biopatch appliedEvents: ?Events: ?Patient tolerated procedure well with no complications and all wires accounted for _ [facility] HospitalArterial [id number] 14:51:44Ana Syed MD ? ? 04/06/2020 ?9:52 [...] complications and all wires accounted for _ [facility] HospitalCBC WITH [id number] 13:22:00 Test Item Value Reference Range Interpretation Comments WBC (test code = See_Comment LL [Automated 4285-2) message] The system which generated this result [...] RDW-SD (test code = 47.8 fL 38.5-51.6 31066-2) RDW-CV (test code = 14.6 % 12.1-15.4 788-0) PLT (test code = See_Comment [Automated 777-3) message] The system which generated this result transmitted reference range : 150 - 328 10*3/?L. The reference range was not used to interpret this result as normal/abnormal . MPV (test code = 12.1 fL 9.8-13 13626-6) NRBC/100 WBC (test See_Comment [Automat ed code = [id number]) message] The system which generated this result transmitted reference range : 0.0 - 10.0 /100 WBCs. The reference range was not used to interpret this result as normal/abnormal . NRBC x10^3 (test code <0.01 See_Comment [Auto mated = [id number]) message] The system which generated this result transmitted reference range : 10*3/?L. The reference range was not used to interpret this result as normal/abnormal . GRAN MAT (NEUT) % 71.6 % (test code = 770-8) IMM GRAN % (test code 0.90 % = [id number]) LYMPH % (test code = 18.3 % 736-9) MONO % (test code = 9.2 % 5905-5) EOS % (test code = 0.0 % 713-8) BASO % (test code = 0.0 % 706-2) GRAN MAT x10^3(ANC) 0.78 10*3/uL 1.99-6.95 L (test code = 5123717039) IMM GRAN x10^3 (test <0.03 0-0.06 code = 2044329144) LYMPH x10^3 (test 0.20 10*3/uL 1.09-3.23 L code = 731-0) MONO x10^3 (test code 0.10 10*3/uL 0.36-1.02 L = 742-7) EOS x10^3 (test code <0.03 0.06-0.53 L = 711-2) BASO x10^3 (test code <0.03 0.01-0.09 = 704-7) GOLDEN CELLS (test code 2+ See_Comment A [Auto mated = 0409-9) message] The system which generated this result transmitted reference range : (none). The reference range was not used to interpret this result as normal/abnormal . BANDS (test code = MARKED INCREASED A 7298143986) Lab Interpretation Abnormal (test code = 51906-4) [facility] METABOLIC PANEL (NA, K, CL, CO2, GLUCOSE, BUN, CREATININE, CA)2020-04-06 12:38:00 Test Item Value Reference Range Interpretation Comments NA (test code = 134 mmol/L 135-145 L 2757272402) K (test code = 4.5 mmol/L 3.5-5 2986125901) CL (test code = 105 mmol/L 98-108 8256640007) CO2 TOTAL (test code = 18 mmol/L 23-31 L 9239532221) AGAP (test code = 2-16 3121283675) BUN (test code = 30 mg/dL 7-23 H 5898478789) GLUCOSE (test code = 117 mg/dL 70-110 H 6891559619) CREATININE (test code = 1.95 mg/dL 0.6-1.25 H 6312113977) CALCIUM (test code = 8.6 mg/dL 8.6-10.6 4439897200) eGFR Calculation mL/min/1.73m2 (Non-) (test code = 0451788921) eGFR Calculation mL/min/1.73m2 () (test code = 0595145493) GILBETRO (test code = GILBERTO) Association of Glomerular [...] tests). Lab Interpretation Abnormal (test code = 64773-6) [facility] 12[facility]38:00 Test Item Value Reference Range Interpretation Comments MAGNESIUM (test code = 3946012989) 2.3 mg/dL 1.7-2.4 Lab Interpretation (test code = Normal 28750-4) [facility] [id number] 23:28:32 Prominent gaseous distention of small bowel [...] pelvis. Note: Left hemidiaphragm isnot fully within vobag-nj-zszf. FINDINGS: Status post colectomy. Massive gaseous distention [...] and pelvis.Note: Left hemidiaphragm isnot fully within vdsgn-cm-joyh.FINDINGS:Status post colectomy.Massive gaseous distention of the stomach [...] this study and agree with theabove report. [facility] [id number] 23:22:45 Esophogastric tube tip projects over the stomach fundus. Redemonstration of extensive small bowel dilatation in the recentpostoperative setting status post total colectomy with ileoanalanastomosis. Findings may represent severe ileus. Correlate clinically. Preliminary Report Dictated by Resident: Louis Donnelly MD., have reviewed this study and agree with theabove report.EXAM: XRKUB HISTORY: post ngt placement COMPARISON: [facility] 04/05/2020 Technique: Single AP view of the upper abdomen. Note: Bilateralhemidiaphragms and upper abdomen are not within wvuhf-at-fxoa. FINDINGS: The tipof the esophogastric tube projects over the expected position ofstomach fundus with the side-port projecting over the proximal stomach. Significant distention of small bowel and stomach minimally improved fromreference exam from 04/22/2020 at 14:49. No evidence of pneumoperitoneumwithin limits of supine exam. Surgical carmenza project over the midline andbilateral mid to lower abdomen. [facility], Radiant Results Inft User - 04/05/2020 6:23 PM CDTEXAM: XR KUBHISTORY: post ngt placement COMPARISON: [facility] 04/05/2020Technique: Single AP view of the upper abdomen. Note: Bilateralhemidiaphragms and upper abdomen are not within ayyuz-pd-nofd.FINDINGS:The tip of the esophogastric tube projects over [...] reviewed this study and agree with theabove report.[facility] (NA, K, CL, CO2, GLUCOSE, BUN, CREATININE, CA)2020-04-05 11:08:00 Test Item Value Reference Range Interpretation Comments NA (test code = 137 mmol/L 135-145 0209500651) K (test code = 4.4 mmol/L 3.5-5 7143589889) CL (test code = 104 mmol/L 98-108 7752122490) CO2 TOTAL (test code = 24 mmol/L 23-31 3274181648) AGAP (test code = 2-16 2399384752) BUN (test code = 10 mg/dL 7-23 9891036620) GLUCOSE (test code = 104 mg/dL 70-110 9516108625) CREATININE (test code 1.18 mg/dL 0.6-1.25 = 3526976798) CALCIUM (test code = 8.7 mg/dL 8.6-10.6 4746540561) eGFR Calculation mL/min/1.73m2 (Non-) (test code = 8069064734) eGFR Calculation mL/min/1.73m2 () (test code = 0086145705) GILBERTO (test code = GILBERTO) Association of [...] or urine or abnormalities in imaging tests). [facility]2020-08-13 11:08:00 Test Item Value Reference Range Interpretation Comments MAGNESIUM (test code = 1952655817) 2.3 mg/dL 1.7-2.4 Lab Interpretation (test code = Normal 90528-4) [facility] WITH [id number] 10:32:00 Test Item Value Reference Range Interpretation [...] RDW-SD (test code = 47.8 fL 38.5-51.6 56362-5) RDW-CV (test code = 14.6 % 12.1-15.4 788-0) PLT (test code = See_Comment [Automated 777-3) message] The sy stem which generated this result transmitted reference range : 150 - 328 10*3/ ?L. The reference r meredith was not used to interpret this result as normal/abnormal . MPV (test code = 11.6 fL 9.8-13 91551-4) NRBC/100 WBC (test See_Comment [Automat ed code = 0715867164) message] The system which generated this result transmitted reference range : 0.0 - 10.0 /100 WBCs. The refer ence range was not u sed to interpret th is result as normal/abnormal . NRBC x10^3 (test code <0.01 See_Comment [Auto mated = 3215223808) message] The s ystem which generated this result transmitted reference range : 10*3/?L. The reference range was not used to interpret this result as normal/abnormal . GRAN MAT (NEUT) % 82.4 % (test code = 770-8) IMM GRAN % (test code 0.30 % = 0431256122) LYMPH % (test code = 12.4 % 736-9) MONO % (test code = 4.5 % 5905-5) EOS % (test code = 0.2 % 713-8) BASO % (test code = 0.2 % 706-2) GRAN MAT x10^3(ANC) 5.12 10*3/uL 1.99-6.95 (test code = 7344516120) IMM GRAN x10^3 (test <0.03 0-0.06 code = 3752996384) LYMPH x10^3 (test code 0.77 10*3/uL 1.09-3.23 L = 731-0) MONO x10^3 (test code 0.28 10*3/uL 0.36-1.02 L = 742-7) EOS x10^3 (test code = <0.03 0.06-0.53 L 711-2) BASO x10^3 (test code <0.03 0.01-0.09 = 704-7) Lab Interpretation Abnormal (test code = 40430-8) [facility] METABOLIC PANEL (NA, K, CL, CO2, GLUCOSE, BUN, CREATININE, CA)2020-04-04 11:02:00 Test Item Value Reference Range Interpretation Comments NA (test code = 135 mmol/L 135-145 3084308617) K (test code = 4.4 mmol/L 3.5-5 Slight 9024748259) hemolysis CL (test code = 103 mmol/L 98-108 7633010918) CO2 TOTAL (test code 26 mmol/L 23-31 = 3806482577) AGAP (test code = 2-16 8437043827) BUN (test code = 7 mg/dL 7-23 Slight 1420193107) hemolysis GLUCOSE (test code = 119 mg/dL 70-110 H 4440907914) CREATININE (test code 0.95 mg/dL 0.6-1.25 = 3344271692) CALCIUM (test code = 8.3 mg/dL 8.6-10.6 L 1502786453) eGFR Calculation mL/min/1.73m2 (Non-) (test code = 2428165656) eGFR Calculation mL/min/1.73m2 () (test code = 0194665943) GILBERTO (test code = GILBERTO) Association of [...] tests). Lab Interpretation Abnormal (test code = 34159-8) [facility]2020-08-12 11:02:00 Test Item Value Reference Range Interpretation Comments MAGNESIUM (test code = 7777133152) 1.7 mg/dL 1.7-2.4 Lab Interpretation (test code = Normal 76282-4) [facility] WITH [id number] 10:31:00 Test Item Value Reference Range Interpretation [...] RDW-SD (test code = 46.5 fL 38.5-51.6 13075-6) RDW-CV (test code = 14.3 % 12.1-15.4 788-0) PLT (test code = See_Comment L [Automated 777-3) message] The sy stem which generated this result transmitted reference range : 150 - 328 10*3/ ?L. The reference r meredith was not used to interpret this result as normal/abnormal . MPV (test code = 11.2 fL 9.8-13 04296-9) NRBC/100 WBC (test See_Comment [Automat ed code = 0035847879) message] The system which generated this result transmitted reference range : 0.0 - 10.0 /100 WBCs. The refer ence range was not u sed to interpret th is result as normal/abnormal . NRBC x10^3 (test code <0.01 See_Comment [Auto mated = 4769968156) message] The s ystem which generated this result transmitted reference range : 10*3/?L. The reference range was not used to interpret this result as normal/abnormal . GRAN MAT (NEUT) % 76.7 % (test code = 770-8) IMM GRAN % (test code 0.30 % = 7434038709) LYMPH % (test code = 16.4 % 736-9) MONO % (test code = 6.2 % 5905-5) EOS % (test code = 0.2 % 713-8) BASO % (test code = 0.2 % 706-2) GRAN MAT x10^3(ANC) 5.12 10*3/uL 1.99-6.95 (test code = 1809861875) IMM GRAN x10^3 (test <0.03 0-0.06 code = 1538644717) LYMPH x10^3 (test code 1.09 10*3/uL 1.09-3.23 = 731-0) MONO x10^3 (test code 0.41 10*3/uL 0.36-1.02 = 742-7) EOS x10^3 (test code = <0.03 0.06-0.53 L 711-2) BASO x10^3 (test code <0.03 0.01-0.09 = 704-7) Lab Interpretation Abnormal (test code = 75635-9) [facility] WITH [id number] 11:04:00 Test Item Value Reference Range Interpretation [...] RDW-SD (test code = 45.6 fL 38.5-51.6 45923-4) RDW-CV (test code = 14.0 % 12.1-15.4 788-0) PLT (test code = See_Comment L [Automated 777-3) message] The sy stem which generated this result transmitted reference range : 150 - 328 10*3/ ?L. The reference r meredith was not used to interpret this result as normal/abnormal . MPV (test code = 11.2 fL 9.8-13 16406-7) NRBC/100 WBC (test See_Comment [Automat ed code = 4264901103) message] The system which generated this result transmitted reference range : 0.0 - 10.0 /100 WBCs. The refer ence range was not u sed to interpret th is result as normal/abnormal . NRBC x10^3 (test code <0.01 See_Comment [Auto mated = 1050424029) message] The s ystem which generated this result transmitted reference range : 10*3/?L. The reference range was not used to interpret this result as normal/abnormal . GRAN MAT (NEUT) % 52.7 % (test code = 770-8) IMM GRAN % (test code 0.30 % = 4069864638) LYMPH % (test code = 34.6 % 736-9) MONO % (test code = 9.6 % 5905-5) EOS % (test code = 2.2 % 713-8) BASO % (test code = 0.6 % 706-2) GRAN MAT x10^3(ANC) 1.88 10*3/uL 1.99-6.95 L (test code = 0886187648) IMM GRAN x10^3 (test <0.03 0-0.06 code = 5028439672) LYMPH x10^3 (test code 1.23 10*3/uL 1.09-3.23 = 731-0) MONO x10^3 (test code 0.34 10*3/uL 0.36-1.02 L = 742-7) EOS x10^3 (test code = 0.08 10*3/uL 0.06-0.53 711-2) BASO x10^3 (test code <0.03 0.01-0.09 = 704-7) REACT LYMPHS (test Rare code = 1120562946) Lab Interpretation Abnormal (test code = 73279-5) [facility] METABOLIC PANEL (NA, K, CL, CO2, GLUCOSE, BUN, CREATININE, CA)2020-04-03 10:54:00 Test Item Value Reference Range Interpretation Comments NA (test code = 140 mmol/L 135-145 2961123800) K (test code = 3.9 mmol/L 3.5-5 2351135725) CL (test code = 107 mmol/L 98-108 0989813464) CO2 TOTAL (test code = 28 mmol/L 23-31 5042716926) AGAP (test code = 2-16 7098284759) BUN (test code = 4 mg/dL 7-23 L 2917033842) GLUCOSE (test code = 88 mg/dL 70-110 4665805592) CREATININE (test code = 0.96 mg/dL 0.6-1.25 0967903346) CALCIUM (test code = 8.6 mg/dL 8.6-10.6 3150926606) eGFR Calculation mL/min/1.73m2 (Non-) (test code = 8868186786) eGFR Calculation mL/min/1.73m2 () (test code = 1256993994) GILBERTO (test code = GILBERTO) Association of [...] tests). Lab Interpretation Abnormal (test code = 33066-7) [facility]11 10:54:00 Test Item Value Reference Range Interpretation Comments MAGNESIUM (test code = 1135678399) 2.0 mg/dL 1.7-2.4 Lab Interpretation (test code = Normal 19323-0) [facility] HospitalType and Screen - ONCE [id number] 23:40:25 Test Item Value Reference Range Interpretation Comments ABO & RH (test code O POSITIVE Performe d at [facility] = 20) Laboratory Serv [facility] s [address]Tncx Free: [phone] A No. [id number] IAT (test code = Negative Performed a t [facility] 1185) Laboratory Serv [facility] s [address]Vhvk Free: [phone] A No. [id number] [facility] WITH [id number] 11:21:00 Test Item Value Reference Range Interpretation [...] RDW-SD (test code = 45.8 fL 38.5-51.6 46381-7) RDW-CV (test code = 14.2 % 12.1-15.4 788-0) PLT (test code = See_Comment L [Automated 777-3) message] The sy stem which generated this result transmitted reference range : 150 - 328 10*3/ ?L. The reference r meredith was not used to interpret this result as normal/abnormal . MPV (test code = 10.6 fL 9.8-13 13547-7) NRBC/100 WBC (test See_Comment [Automat ed code = 6302345028) message] The system which generated this result transmitted reference range : 0.0 - 10.0 /100 WBCs. The refer ence range was not u sed to interpret th is result as normal/abnormal . NRBC x10^3 (test code <0.01 See_Comment [Auto mated = 5185584556) message] The s ystem which generated this result transmitted reference range : 10*3/?L. The reference range was not used to interpret this result as normal/abnormal . GRAN MAT (NEUT) % 46.4 % (test code = 770-8) IMM GRAN % (test code 0.30 % = 9261307641) LYMPH % (test code = 38.8 % 736-9) MONO % (test code = 10.5 % 5905-5) EOS % (test code = 3.3 % 713-8) BASO % (test code = 0.7 % 706-2) GRAN MAT x10^3(ANC) 1.41 10*3/uL 1.99-6.95 L (test code = 9368772741) IMM GRAN x10^3 (test <0.03 0-0.06 code = 3190040849) LYMPH x10^3 (test code 1.18 10*3/uL 1.09-3.23 = 731-0) MONO x10^3 (test code 0.32 10*3/uL 0.36-1.02 L = 742-7) EOS x10^3 (test code = 0.10 10*3/uL 0.06-0.53 711-2) BASO x10^3 (test code <0.03 0.01-0.09 = 704-7) HYPERSEG NEUTS (test Present See_Comment A [Autom ated code = 765-8) message] The [employer] Systemstem which generated this result transmitted reference range : (none). The reference range was not used to interpret this result as normal/abnormal . Lab Interpretation Abnormal (test code = 64193-2) [facility] METABOLIC PANEL (NA, K, CL, CO2, GLUCOSE, BUN, CREATININE, CA)2020-04-02 11:05:00 Test Item Value Reference Range Interpretation Comments NA (test code = 139 mmol/L 135-145 1128030124) K (test code = 4.0 mmol/L 3.5-5 2315309795) CL (test code = 108 mmol/L 98-108 6165124686) CO2 TOTAL (test code = 25 mmol/L 23-31 8015690987) AGAP (test code = 2-16 5313276124) BUN (test code = 6 mg/dL 7-23 L 4281657463) GLUCOSE (test code = 99 mg/dL 70-110 9066848280) CREATININE (test code = 0.92 mg/dL 0.6-1.25 5968985699) CALCIUM (test code = 8.3 mg/dL 8.6-10.6 L 6241862811) eGFR Calculation mL/min/1.73m2 (Non-) (test code = 9977162464) eGFR Calculation mL/min/1.73m2 () (test code = 1694654236) GILBERTO (test code = GILBERTO) Association of [...] tests). Lab Interpretation Abnormal (test code = 49011-9) [facility]2020-08-10 11:05:00 Test Item Value Reference Range Interpretation Comments MAGNESIUM (test code = 8159593690) 2.0 mg/dL 1.7-2.4 Lab Interpretation (test code = Normal 86374-6) [facility] HospitalCOVID[facility] (ID NOW RAPID TESTING)2020-04-02 00:43:00 Test Item Value Reference Range Interpretation Comments SARS-CoV-2 Rapid ID NOW Not Detected Not Detected (test code = 84026-0) GILBERTO (test code = GILBERTO) ID NOW COVID-19 Assay is an isothermal nucleic acid amplification test intended for the qualitative detection of nucleic acid from SARS-CoV-2 viral RNA in nasopharyngeal (JTAC) specimens. It is used under Emergency Use [...] indicated. Lab Interpretation Normal (test code = 26623-7) [facility] HospitalUrinalysis2020-08-08 11:39:00 Test Item Value Reference Range Interpretation Comments APPEARANCE (test code = Hazy Clear A 0393281772) COLOR (test code = Yellow Yellow 5406613004) PH (test code = 4.8-8.0 0254694236) SP GRAVITY (test code = 1.003-1.030 H 4752955616) GLU U QUAL (test code = Normal Normal 6327117517) BLOOD (test code = Negative Negative 5063901059) KETONES (test code = 5 mg/dL Negative A 6994090393) PROTEIN (test code = Negative Negative 2887-8) UROBILIN (test code = 2.0 mg/dL Normal A 8493049078) BILIRUBIN (test code = Negative Negative 1470234349) NITRITE (test code = Negative Negative 3392010525) LEUK ROGER (test code = Negative Negative 8762202695) RBC/HPF (test code = See_Comment [Autom ated message] 1901899000) The system [employer] generated this result transmit dain reference range : 0 - 3 HPF. The refe rence range was not u sed to interpret th is result as normal/abnormal . WBC/HPF (test code = See_Comment [Autom ated message] 6833373773) The system [employer] generated this result transmit dain reference range : 0 - 5 HPF. The refe rence range was not u sed to interpret th is result as normal/abnormal . BACTERIA (test code = Negative Negative 6711470255) CA OXALATE (test code = See_Comment H [Au tomated message] 0565499845) The system [employer] generated this result transmit dain reference range : <=1 HPF. The refere nce range was not u sed to interpret th is result as normal/abnormal . Lab Interpretation (test Abnormal code = 43075-3) [facility] HospitalCT ABDOMEN PELVIS W [id number] 00:38:37 1. ?Massive air distention of the [...] focal loculated drainable fluidcollection.RL: 460END OF REPORT [facility] CenterBasi Met[facility] (NA, K, CL, CO2, GLUCOSE, BUN, CREATININE, CA)2020-03-30 23:45:00 Test Item Value Reference Range Interpretation Comments NA (test code = 140 mmol/L 135-145 0131771796) K (test code = 4.3 mmol/L 3.5-5 7973059876) CL (test code = 101 mmol/L 98-108 3806737873) CO2 TOTAL (test code = 28 mmol/L 23-31 2306723410) AGAP (test code = 2-16 4915565136) BUN (test code = 24 mg/dL 7-23 H 6376114766) GLUCOSE (test code = 90 mg/dL 70-110 3645702293) CREATININE (test code = 1.29 mg/dL 0.6-1.25 H 9953352099) CALCIUM (test code = 9.4 mg/dL 8.6-10.6 9609840942) eGFR Calculation mL/min/1.73m2 (Non-) (test code = 7361469697) eGFR Calculation mL/min/1.73m2 () (test code = 1405793910) GILBERTO (test code = GILBERTO) Association of [...] tests). Lab Interpretation Abnormal (test code = 74078-8) [facility] 1 [id number] 23:00:46 No evidence for an acute cardiopulmonary [...] on the March 02, 2020 exam.RL: [id number] [facility] [id number] 22:39:00 Test Item Value Reference Range Interpretation Comments TROPONIN I (test 0.008 ng/mL See_Comment [Automated code = 1274405744) message] The system which generated this result [...] ? Lab Interpretation Normal (test code = 91221-0) [facility] HospitalN-TERMINAL [id number] 22:39:00 Test Item Value Reference Range Interpretation Comments NT-proBNP (test code 42 pg/mL See_Comment [Autom ated = 9418183480) message] The system which generated this result transmitted reference range : <=125. The reference range was not used to interpret this result as normal/abnormal . GILBERTO (test code = GILBERTO) Biotin has been reported to cause a negative bias, interpret results relative to patient's use of biotin. Lab Interpretation Normal (test code = 47375-2) [facility] HospitalHepatic Function Panel (ALB, T.PRO, BILI T, BU/BC, ALT, AST, ALK PHOS)2020-03-30 22:27:00 Test Item Value Reference Range Interpretation Comments TOTAL BILI (test code = 0041353041) 0.5 mg/dL 0.1-1.1 BILI UNCON (test code = 4513358386) 0.3 mg/dL 0.1-1.1 BILI CONJ (test code = 4962724139) 0.0 mg/dL 0-0.3 T PROTEIN (test code = 0157673564) 6.7 g/dL 6.3-8.2 ALBUMIN (test code = 8859085036) 4.5 g/dL 3.5-5 ALK PHOS (test code = 6480248526) 57 U/L 34-122 ALTv (test code = 1742-6) 31 U/L 5-50 AST(SGOT) (test code = 9748437307) 38 U/L 13-40 Lab Interpretation (test code = Normal 38621-9) [facility] HospitalLipase [id number] 22:27:00 Test Item Value Reference Range Interpretation Comments LIPASE (test code = 4754745154) 62 U/L 0-220 Lab Interpretation (test code = Normal 33047-1) [facility] HospitalaPTT2020-08-07 22:25:00 Test Item Value Reference Range Interpretation Comments APTT Patient (test code = See_Comment [ Automated message] 3173-2) The system whic h generated this result transmitted ref erence range: 26 - 36 Seconds. The re ference range was not u sed to interpret this result as normal/abnor mal. Lab Interpretation (test Normal code = 16602-0) [facility] HospitalProthrombin Time (PT) / [id number] 22:25:00 Test Item Value Reference Range Interpretation [...] tions. Lab Interpretation (test Normal code = 74785-9) [facility] HospitalCBC with Cltiytsnzsbm2512-84-11 22:17:00 Test Item Value Reference Range Interpretation Comments WBC (test code = See_Comment [Automated 1490-2) message] The sy stem which generated this result transmitted reference range : 4.20 - 10.70 10*3/?L. The reference range was not used to interpret this result as normal/abnormal . RBC (test code = See_Comment L [Automated 433-8) message] The sy stem which generated this [...] RDW-SD (test code = 46.9 fL 38.5-51.6 83238-1) RDW-CV (test code = 14.3 % 12.1-15.4 788-0) PLT (test code = See_Comment [Automated 777-3) message] The sy stem which generated this result transmitted reference range : 150 - 328 10*3/ ?L. The reference r meredith was not used to interpret this result as normal/abnormal . MPV (test code = 10.7 fL 9.8-13 12042-3) NRBC/100 WBC (test See_Comment [Automat ed code = 0605098665) message] The system which generated this result transmitted reference range : 0.0 - 10.0 /100 WBCs. The refer ence range was not u sed to interpret th is result as normal/abnormal . NRBC x10^3 (test code <0.01 See_Comment [Auto mated = 5375137743) message] The s ystem which generated this result transmitted reference range : 10*3/?L. The reference range was not used to interpret this result as normal/abnormal . GRAN MAT (NEUT) % 51.7 % (test code = 770-8) IMM GRAN % (test code 0.40 % = 7713254085) LYMPH % (test code = 32.8 % 736-9) MONO % (test code = 12.4 % 5905-5) EOS % (test code = 2.1 % 713-8) BASO % (test code = 0.6 % 706-2) GRAN MAT x10^3(ANC) 2.76 10*3/uL 1.99-6.95 (test code = 7645637633) IMM GRAN x10^3 (test <0.03 0-0.06 code = 1794298070) LYMPH x10^3 (test code 1.75 10*3/uL 1.09-3.23 = 731-0) MONO x10^3 (test code 0.66 10*3/uL 0.36-1.02 = 742-7) EOS x10^3 (test code = 0.11 10*3/uL 0.06-0.53 711-2) BASO x10^3 (test code 0.03 10*3/uL 0.01-0.09 = 704-7) Lab Interpretation Abnormal (test code = 20786-4) [facility] with Maugcniomzdo6805-39-36 10:26:00 Test Item Value Reference Range Interpretation [...] RDW-SD (test code = 46.3 fL 38.5-51.6 27687-7) RDW-CV (test code = 14.2 % 12.1-15.4 788-0) PLT (test code = See_Comment L [Automated 777-3) message] The sy stem which generated this result transmitted reference range : 150 - 328 10*3/ ?L. The reference r meredith was not used to interpret this result as normal/abnormal . MPV (test code = 10.6 fL 9.8-13 27312-6) NRBC/100 WBC (test See_Comment [Automat ed code = 4803426103) message] The system which generated this result transmitted reference range : 0.0 - 10.0 /100 WBCs. The refer ence range was not u sed to interpret th is result as normal/abnormal . NRBC x10^3 (test code <0.01 See_Comment [Auto mated = 3728454892) message] The s ystem which generated this result transmitted reference range : 10*3/?L. The reference range was not used to interpret this result as normal/abnormal . GRAN MAT (NEUT) % 51.3 % (test code = 770-8) IMM GRAN % (test code 0.30 % = 2164181314) LYMPH % (test code = 32.2 % 736-9) MONO % (test code = 12.7 % 5905-5) EOS % (test code = 3.0 % 713-8) BASO % (test code = 0.5 % 706-2) GRAN MAT x10^3(ANC) 1.89 10*3/uL 1.99-6.95 L (test code = [id number]) IMM GRAN x10^3 (test <0.03 0-0.06 code = [id number]) LYMPH x10^3 (test code 1.19 10*3/uL 1.09-3.23 = 731-0) MONO x10^3 (test code 0.47 10*3/uL 0.36-1.02 = 742-7) EOS x10^3 (test code = 0.11 10*3/uL 0.06-0.53 711-2) BASO x10^3 (test code <0.03 0.01-0.09 = 704-7) Lab Interpretation Abnormal (test code = 88416-5) [id number] 10:17:00 Test Item Value Reference Range Interpretation Comments MAGNESIUM (test code = [id number]) 2.0 mg/dL 1.7-2.4 Lab Interpretation (test code = Normal 26889-9) [facility] Metabolic Panel (NA, K, CL, CO2, GLUCOSE, BUN, CREATININE, CA)2020-03-26 10:17:00 Test Item Value Reference Range Interpretation Comments NA (test code = 136 mmol/L 135-145 4298641016) K (test code = 4.6 mmol/L 3.5-5 Slight 3434810368) hemolysis CL (test code = 109 mmol/L 98-108 H 1929745138) CO2 TOTAL (test code 26 mmol/L 23-31 = 4600075392) AGAP (test code = 2-16 L 9680234543) BUN (test code = 22 mg/dL 7-23 Slight 6184236146) hemolysis GLUCOSE (test code = 82 mg/dL 70-110 8148687716) CREATININE (test code 0.88 mg/dL 0.6-1.25 = 3536827620) CALCIUM (test code = 8.1 mg/dL 8.6-10.6 L 4972187918) eGFR Calculation mL/min/1.73m2 (Non-) (test code = 4544515563) eGFR Calculation mL/min/1.73m2 () (test code = 7917311550) GILBERTO (test code = GILBERTO) Association of [...] tests). Lab Interpretation Abnormal (test code = 63086-8) [facility] Whole Damyg1969-03-66 04:22:00 Test Item Value Reference Range Interpretation Comments LACTIC ACID (test code = 1.52 mmol/L 6698129105) [facility] HospitalPhosphorus [id number] 03:37:00 Test Item Value Reference Range Interpretation Comments PHOSPHORUS (test code = 6175282836) 4.6 mg/dL 2.5-5 Lab Interpretation (test code = Normal 15062-3) [facility] HospitalMAGNESIUM2020-08-03 03:37:00 Test Item Value Reference Range Interpretation Comments MAGNESIUM (test code = 6870635359) 2.3 mg/dL 1.7-2.4 Lab Interpretation (test code = Normal 75781-5) [facility]COVID[facility]19 (ID NOW RAPID TESTING)2020-03-26 02:24:00 Test Item Value Reference Range Interpretation Comments SARS-CoV-2 Rapid ID NOW Not Detected Not Detected (test code = 49440-2) GILBERTO (test code = GILBERTO) ID NOW COVID-19 Assay is an isothermal nucleic acid amplification test intended for the qualitative detection of nucleic acid from SARS-CoV-2 viral RNA in nasopharyngeal (JTAC) specimens. It is used under Emergency Use [...] indicated. Lab Interpretation Normal (test code = 18436-3) [facility] HospitalCT ABDOMEN PELVIS W [id number] 01:33:06 Redemonstration of severe dilatation of the [...] No focal bowel inflammation or wall thickening.. [facility] Metabolic Panel (NA, K, CL, CO2, GLUCOSE, BUN, CREATININE, CA)2020-03-26 00:57:00 Test Item Value Reference Range Interpretation Comments NA (test code = 139 mmol/L 135-145 2115159926) K (test code = 4.4 mmol/L 3.5-5 0955268905) CL (test code = 105 mmol/L 98-108 9429073927) CO2 TOTAL (test code = 29 mmol/L 23-31 5049448704) AGAP (test code = 2-16 3015717283) BUN (test code = 28 mg/dL 7-23 H 9019388149) GLUCOSE (test code = 84 mg/dL 70-110 6725277397) CREATININE (test code = 1.19 mg/dL 0.6-1.25 4060093974) CALCIUM (test code = 8.9 mg/dL 8.6-10.6 3463288911) eGFR Calculation mL/min/1.73m2 (Non-) (test code = 5760023145) eGFR Calculation mL/min/1.73m2 () (test code = 1722180783) GILBERTO (test code = GILBERTO) Association of [...] tests). Lab Interpretation Abnormal (test code = 75693-2) [facility] (ALB, T.PRO, BILI T, BU/BC, ALT, AST, ALK PHOS)2020-03-26 00:57:00 Test Item Value Reference Range Interpretation Comments TOTAL BILI (test code = 1165314907) 0.2 mg/dL 0.1-1.1 BILI UNCON (test code = 9057248811) 0.0 mg/dL 0.1-1.1 L BILI CONJ (test code = 9643695928) 0.0 mg/dL 0-0.3 T PROTEIN (test code = 7080320975) 6.2 g/dL 6.3-8.2 L ALBUMIN (test code = 4590512357) 4.1 g/dL 3.5-5 ALK PHOS (test code = 1878020685) 56 U/L 34-122 ALTv (test code = 1742-6) 24 U/L 5-50 AST(SGOT) (test code = 4909818830) 28 U/L 13-40 Lab Interpretation (test code = Abnormal 71804-1) [facility] HospitalCB with Oqlnwwdfjntt7930-56-35 00:47:00 Test Item Value Reference Range Interpretation Comments WBC (test code = See_Comment [Automated 90-2) message] The sy stem which generated this [...] RDW-SD (test code = 45.9 fL 38.5-51.6 09608-9) RDW-CV (test code = 14.0 % 12.1-15.4 788-0) PLT (test code = See_Comment [Automated 777-3) message] The sy stem which generated this result transmitted reference range : 150 - 328 10*3/ ?L. The reference r meredith was not used to interpret this result as normal/abnormal . MPV (test code = 10.9 fL 9.8-13 76136-6) NRBC/100 WBC (test See_Comment [Automat ed code = 9567826327) message] The system which generated this result transmitted reference range : 0.0 - 10.0 /100 WBCs. The refer ence range was not u sed to interpret th is result as normal/abnormal . NRBC x10^3 (test code <0.01 See_Comment [Auto mated = 5269628362) message] The s ystem which generated this result transmitted reference range : 10*3/?L. The reference range was not used to interpret this result as normal/abnormal . GRAN MAT (NEUT) % 49.8 % (test code = 770-8) IMM GRAN % (test code 0.20 % = 6905229401) LYMPH % (test code = 32.0 % 736-9) MONO % (test code = 14.3 % 5905-5) EOS % (test code = 3.0 % 713-8) BASO % (test code = 0.7 % 706-2) GRAN MAT x10^3(ANC) 2.29 10*3/uL 1.99-6.95 (test code = 5094867870) IMM GRAN x10^3 (test <0.03 0-0.06 code = 4270554544) LYMPH x10^3 (test code 1.47 10*3/uL 1.09-3.23 = 731-0) MONO x10^3 (test code 0.66 10*3/uL 0.36-1.02 = 742-7) EOS x10^3 (test code = 0.14 10*3/uL 0.06-0.53 711-2) BASO x10^3 (test code 0.03 10*3/uL 0.01-0.09 = 704-7) Lab Interpretation Abnormal (test code = 05203-9) [facility] HospitalMagnesium [id number] 05:23:00 Test Item Value Reference Range Interpretation Comments MAGNESIUM (test code = 3564668242) 2.1 mg/dL 1.7-2.4 Lab Interpretation (test code = Normal 66783-6) [facility] HospitalCOVID[facility] (ID NOW RAPID TESTING)2020-03-03 04:45:00 Test Item Value Reference Range Interpretation Comments SARS-CoV-2 Rapid ID NOW Not Detected Not Detected (test code = 46525-5) GILBERTO (test code = GILBERTO) ID NOW COVID-19 Assay is an isothermal nucleic acid amplification test intended for the qualitative detection of nucleic acid from SARS-CoV-2 viral RNA in nasopharyngeal (JTAC) specimens. It is used under Emergency Use [...] indicated. Lab Interpretation Normal (test code = 66794-8) [facility] HospitalProthrombin Time / [id number] 04:40:00 Test Item Value Reference Range Interpretation Comments PROTIME PATIENT (test See_Comment [Auto mated message] code = 5964-2) The system [employer] ich generated this result transmitted ref erence range: 10.1 - 1 2.6 Seconds. The re ference range was not u sed to interpret this result as normal/abnor mal. INR (test code = 6301-6) Nor mal INR <1.1; Warfarin Therap eutic range 2.0 to 3. 0 or 2.5 to 3.5, dep ending upon the indica tions. Lab Interpretation (test Normal code = 89093-5) [facility] HospitalaPTT2020-07-11 04:40:00 Test Item Value Reference Range Interpretation Comments APTT Patient (test code = See_Comment [ Automated message] 3173-2) The system [employer] h generated this result transmitted ref erence range: 26 - 36 Seconds. The re ference range was not u sed to interpret this result as normal/abnor mal. Lab Interpretation (test Normal code = 68918-0) [facility] HospitalPhosphorus [id number] 04:31:00 Test Item Value Reference Range Interpretation Comments PHOSPHORUS (test code = 8632705248) 4.0 mg/dL 2.5-5 Lab Interpretation (test code = Normal 33126-5) [facility] HospitalXR ABDOMEN ACUTE [id number] 02:54:09 Impression: No radiographic evidence for acute cardiopulmonary disease. No radiographic evidence forpneumoperitoneum. Marked gaseous distention of predominantly large bowel loops in the abdomenand pelvis, similar to prior CT of 02/26/2020. On that CT, there was atransition in the distal descending colon, without mass lesion or definitesigmoid volvulus appreciated. RL: 460 AFC: 53901 Indication: Diffuse abdominal pain, obstructionComparison: CT the [...] lesion or definitesigmoid volvulus appreciated. RL: 460AFC: 55715Fwlqplubwwpish signed by Angeli Carrillo MD, PhD at 03/02/2020 9:54 PM [facility] HospitalUrinalysis2020-07-11 01:50:00 Test Item Value Reference Range Interpretation Comments APPEARANCE (test code = Hazy Clear A 4116414858) COLOR (test code = Tahira Yellow A 6149602031) PH (test code = 4.8-8.0 0103768470) SP GRAVITY (test code = 1.003-1.030 2568184072) GLU U QUAL (test code = Normal Normal 2993300121) BLOOD (test code = Negative Negative 8986530281) KETONES (test code = 5 mg/dL Negative A 2356001246) PROTEIN (test code = Negative Negative 2887-8) UROBILIN (test code = 2.0 mg/dL Normal A 6228482938) BILIRUBIN (test code = Negative Negative 6476304200) NITRITE (test code = Negative Negative 6721636400) LEUK ROGER (test code = Negative Negative 0754529009) RBC/HPF (test code = See_Comment [Autom ated message] 4330863764) The system [employer] generated this result transmit dain reference range : 0 - 3 HPF. The refe rence range was not u sed to interpret th is result as normal/abnormal . WBC/HPF (test code = See_Comment [Autom ated message] 4717062554) The system [employer] generated this result transmit dain reference range : 0 - 5 HPF. The refe rence range was not u sed to interpret th is result as normal/abnormal . BACTERIA (test code = Negative Negative 1468643522) MUCOUS (test code = Slight Negative LPF A 5377729336) SQ EPITH (test code = <1 See_Comment [Auto mated message] 1360173545) The system [employer] generated this result transmit dain reference range : <=2 HPF. The refere nce range was not u sed to interpret th is result as normal/abnormal . CA OXALATE (test code = See_Comment H [Au tomated message] 6781909590) The system [employer] generated this result transmit dain reference range : <=1 HPF. The refere nce range was not u sed to interpret th is result as normal/abnormal . SPERM (test code = See_Comment [Automat ed message] 5558828724) The system [employer] generated this result transmit dain reference range : <=1 HPF. The refere nce range was not u sed to interpret th is result as normal/abnormal . Lab Interpretation (test Abnormal code = 88730-7) [facility] Metabolic Panel (NA, K, CL, CO2, GLUCOSE, BUN, CREATININE, CA)2020-03-03 01:44:00 Test Item Value Reference Range Interpretation Comments NA (test code = 140 mmol/L 135-145 0659637329) K (test code = 4.1 mmol/L 3.5-5 5840646387) CL (test code = 106 mmol/L 98-108 2111344661) CO2 TOTAL (test code = 25 mmol/L 23-31 0356057972) AGAP (test code = 2-16 7341002448) BUN (test code = 17 mg/dL 7-23 5012308374) GLUCOSE (test code = 91 mg/dL 70-110 5834059624) CREATININE (test code 1.13 mg/dL 0.6-1.25 = 6355577314) CALCIUM (test code = 9.0 mg/dL 8.6-10.6 0189321986) eGFR Calculation mL/min/1.73m2 (Non-) (test code = 2063381931) eGFR Calculation mL/min/1.73m2 () (test code = 2418026887) GILBERTO (test code = GILBERTO) Association of [...] or urine or abnormalities in imaging tests). [facility] HospitalHepatic Function Panel (ALB, T.PRO, BILI T, BU/BC, ALT, AST, ALK PHOS)2020-03-03 01:44:00 Test Item Value Reference Range Interpretation Comments TOTAL BILI (test code = 4910203031) 0.4 mg/dL 0.1-1.1 BILI UNCON (test code = 7624330793) 0.4 mg/dL 0.1-1.1 BILI CONJ (test code = 5108309189) 0.0 mg/dL 0-0.3 T PROTEIN (test code = 5621819079) 6.3 g/dL 6.3-8.2 ALBUMIN (test code = 9125541718) 4.2 g/dL 3.5-5 ALK PHOS (test code = 3612387026) 43 U/L 34-122 ALTv (test code = 1742-6) 20 U/L 5-50 AST(SGOT) (test code = 8785388184) 26 U/L 13-40 Lab Interpretation (test code = Normal 95041-2) [facility] WITH [id number] 01:37:00 Test Item Value Reference Range Interpretation Comments WBC (test code = See_Comment [Automated 1219-2) message] The sy stem which generated this result transmitted reference range : 4.20 - 10.70 10*3/?L. The reference range was not used to interpret this result as normal/abnormal . RBC (test code = See_Comment L [Automated 569-8) message] The sy stem which generated this [...] RDW-SD (test code = 45.0 fL 38.5-51.6 61263-7) RDW-CV (test code = 13.7 % 12.1-15.4 788-0) PLT (test code = See_Comment [Automated 697-3) message] The sy stem which generated this result transmitted reference range : 150 - 328 10*3/ ?L. The reference r meredith was not used to interpret this result as normal/abnormal . MPV (test code = 11.3 fL 9.8-13 86535-8) NRBC/100 WBC (test See_Comment [Automat ed code = 0684886366) message] The system which generated this result transmitted reference range : 0.0 - 10.0 /100 WBCs. The refer ence range was not u sed to interpret th is result as normal/abnormal . NRBC x10^3 (test code <0.01 See_Comment [Auto mated = 4101503679) message] The s ystem which generated this result transmitted reference range : 10*3/?L. The reference range was not used to interpret this result as normal/abnormal . GRAN MAT (NEUT) % 53.2 % (test code = 770-8) IMM GRAN % (test code 0.20 % = 5460468346) LYMPH % (test code = 34.5 % 736-9) MONO % (test code = 9.7 % 5905-5) EOS % (test code = 1.8 % 713-8) BASO % (test code = 0.6 % 706-2) GRAN MAT x10^3(ANC) 2.69 10*3/uL 1.99-6.95 (test code = 6461361382) IMM GRAN x10^3 (test <0.03 0-0.06 code = 1674737669) LYMPH x10^3 (test code 1.74 10*3/uL 1.09-3.23 = 731-0) MONO x10^3 (test code 0.49 10*3/uL 0.36-1.02 = 742-7) EOS x10^3 (test code = 0.09 10*3/uL 0.06-0.53 711-2) BASO x10^3 (test code 0.03 10*3/uL 0.01-0.09 = 704-7) Lab Interpretation Abnormal (test code = 52498-1) [facility] HospitalLactic Acid Whole [id number] 01:28:00 Test Item Value Reference Range Interpretation Comments LACTIC ACID (test code = 1.62 mmol/L 7014269181) [facility] HospitalDRUG PANEL 2 [id number] 22:13:00 Test Item Value Reference Range Interpretation Comments AMPHET (test code = Negative Negative 0403208613) LOS U (test code = Negative Negative 3242516419) BENZO U (test code = Negative Negative 8555229052) Cocaine Metabolite (test Negative Negative code = 2634562919) METHADONE (test code = Negative Negative 6219276225) OPIATES (test code = Negative Negative 1246204265) PCP (test code = Negative Negative 6803800513) THC (test code = Negative Negative 1062139232) GILBERTO (test code = GILBERTO) Urine Drug [...] testing). Lab Interpretation (test Normal code = 87446-6) [facility] HospitalTHYROID STIMULATING [id number] 19:02:00 Test Item Value Reference Range Interpretation Comments TSH (test code = See_Comment [Automated message] 2883395807) The system [employer] generated this result transmitted ref erence range: 0.45 - 4 .70 mIU/L. The refe rence range was not u sed to interpret this result as normal/abnor mal. Lab Interpretation (test Normal code = 50554-9) [facility] [id number] 18:49:00 Test Item Value Reference Range Interpretation Comments FREE T3 (test code = 8690281560) 2.56 pg/mL 2.77-5.27 L Lab Interpretation (test code = Abnormal 08883-5) [facility] [id number] 18:49:00 Test Item Value Reference Range Interpretation Comments FREE T4 (test code = See_Comment [Autom ated message] 2599592819) The system [employer] generated this result transmitted ref erence range: 0.78 - 2 .20 ng/dL:. The ref erence range was not u sed to interpret this result as normal/abnor mal. Lab Interpretation (test Normal code = 04945-3) [facility] HospitalCT ABDOMEN PELVIS W [id number] 20:56:47 Persistent marked severe dilatation of the [...] No focal hepatic lesions. Normal contour. Hepatomegaly, snrepawpp13.7 cm, in the craniocaudal dimension. Diffuse hypoattenuation [...] No focal hepatic lesions. Normal contour. Hepatomegaly, noxbkrsyv65.7 cm, in the craniocaudal dimension. Diffuse hypoattenuation [...] evidence ofvolvulus.Preliminary Report Dictated by Resident: Merritt Resendiz-Cardenas, MD., have reviewed this study and agree withthe above report. [facility] HospitalCOVID-19 (ID NOW RAPID TESTING)2020-02-26 07:03:00 Test Item Value Reference Range Interpretation Comments SARS-CoV-2 Rapid ID NOW Not Detected Not Detected (test code = 65778-6) GILBERTO (test code = GILBERTO) ID NOW COVID-19 Assay is an isothermal nucleic acid amplification test intended for the qualitative detection of nucleic acid from SARS-CoV-2 viral RNA in nasopharyngeal (JTAC) specimens. It is used under Emergency Use [...] indicated. Lab Interpretation Normal (test code = 69217-9) [facility]XR ABDOMEN ACUTE [id number] 05:00:33 Impression: No radiographic evidence for acute cardiopulmonary disease. Marked gaseous distention ofthe colon, with a relative paucity of gas inthe distal sigmoid colon and rectum. This may reflect pseudoobstruction,but mechanical distal colonic obstruction cannot be excluded. RL: 460 AFC: 84890 Ordering physician: SABI Briggsdication: Abdominal distention Comparison: [...] distal colonic obstruction cannot be excluded.RL: 460AF: 92060Ejkxqyygirkurm signed by Angeli Carrillo MD, PhD at 02/26/2020 12:00 [facility] (NA, K, CL, CO2, GLUCOSE, BUN, CREATININE, CA)2020-02-26 04:03:00 Test Item Value Reference Range Interpretation Comments NA (test code = 142 mmol/L 135-145 7698081070) K (test code = 4.1 mmol/L 3.5-5 4015649989) CL (test code = 107 mmol/L 98-108 6823706600) CO2 TOTAL (test code = 29 mmol/L 23-31 7598640401) AGAP (test code = 2-16 0118184219) BUN (test code = 13 mg/dL 7-23 2081370593) GLUCOSE (test code = 82 mg/dL 70-110 6837093811) CREATININE (test code 1.14 mg/dL 0.6-1.25 = 8449283119) CALCIUM (test code = 9.5 mg/dL 8.6-10.6 5603303654) eGFR Calculation mL/min/1.73m2 (Non-) (test code = 3708483909) eGFR Calculation mL/min/1.73m2 () (test code = 9073631903) GILBERTO (test code = GILBERTO) Association of [...] or urine or abnormalities in imaging tests). [facility] HospitalHepatic Function Panel (ALB, T.PRO, BILI T, BU/BC, ALT, AST, ALK PHOS)2020-02-26 04:03:00 Test Item Value Reference Range Interpretation Comments TOTAL BILI (test code = 2247247599) 0.5 mg/dL 0.1-1.1 BILI UNCON (test code = 4139936547) 0.5 mg/dL 0.1-1.1 BILI CONJ (test code = 6569585769) 0.0 mg/dL 0-0.3 T PROTEIN (test code = 8673502378) 6.2 g/dL 6.3-8.2 L ALBUMIN (test code = 0323361132) 4.2 g/dL 3.5-5 ALK PHOS (test code = 9120928238) 40 U/L 34-122 ALTv (test code = 1742-6) 20 U/L 5-50 AST(SGOT) (test code = 7251377975) 26 U/L 13-40 Lab Interpretation (test code = Abnormal 25737-4) [facility] HospitalLipase [id number] 04:03:00 Test Item Value Reference Range Interpretation Comments LIPASE (test code = 7851644359) 57 U/L 0-220 Lab Interpretation (test code = Normal 86407-3) [facility] HospitalLactic Acid Whole [id number] 03:52:00 Test Item Value Reference Range Interpretation Comments LACTIC ACID (test code = 1.66 mmol/L 0.5-2.2 9961452053) [facility] HospitalCBC WITH [id number] 03:47:00 Test Item Value Reference Range Interpretation [...] RDW-SD (test code = 45.1 fL 38.5-51.6 31363-6) RDW-CV (test code = 13.7 % 12.1-15.4 788-0) PLT (test code = See_Comment [Automated 777-3) message] The sy stem which generated this result transmitted reference range : 150 - 328 10*3/ ?L. The reference r meredith was not used to interpret this result as normal/abnormal . MPV (test code = 10.7 fL 9.8-13 77947-3) NRBC/100 WBC (test See_Comment [Automat ed code = 0881054230) message] The system which generated this result transmitted reference range : 0.0 - 10.0 /100 WBCs. The refer ence range was not u sed to interpret th is result as normal/abnormal . NRBC x10^3 (test code <0.01 See_Comment [Auto mated = 9037160789) message] The s ystem which generated this result transmitted reference range : 10*3/?L. The reference range was not used to interpret this result as normal/abnormal . GRAN MAT (NEUT) % 63.1 % (test code = 770-8) IMM GRAN % (test code 0.40 % = 8986541883) LYMPH % (test code = 25.1 % 736-9) MONO % (test code = 9.9 % 5905-5) EOS % (test code = 1.1 % 713-8) BASO % (test code = 0.4 % 706-2) GRAN MAT x10^3(ANC) 3.52 10*3/uL 1.99-6.95 (test code = 2240632035) IMM GRAN x10^3 (test <0.03 0-0.06 code = 6974601014) LYMPH x10^3 (test code 1.40 10*3/uL 1.09-3.23 = 731-0) MONO x10^3 (test code 0.55 10*3/uL 0.36-1.02 = 742-7) EOS x10^3 (test code = 0.06 10*3/uL 0.06-0.53 711-2) BASO x10^3 (test code <0.03 0.01-0.09 = 704-7) Lab Interpretation Abnormal (test code = 50771-8) [facility]- [facility] ABDOMEN 1 [id number] 12:53:00 Name: DORA JOSEPH [facility] : 1970 Age/S: 50 / M [address] Unit #: [id number] Loc: [place] [address] 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 Acct: [id number] Dis Date: Status: ADM IN PHONE #: [phone] Exam Date: 02/25/2020 1033 FAX #: Reason: abdominal distention EXAMS: CPT: [id number] XR ABDOMEN 1 V 29703 Fluoro Time: DAP (Gy m2): Air Kerma [...] the left lower quadrant (not previously seen) [id number] Reported and signed by: Sol Paige MD CC: Andre Solano; Mark Perea MD PAGE 1 Signed Report Name: DORA JOSEPH [facility] : 1970 Age/S: 50 / M [address] Unit #: [id number] Loc: [place] [address] 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 Acct: [id number] Dis Date: Status: ADM IN PHONE #: [phone] Exam Date: 02/25/2020 1036 FAX #: Reason: abdominal distention EXAMS: CPT: [id number] XR ABDOMEN 1 V 48822 Fluoro Time: DAP (Gy m2): Air Kerma (mGy): <Continued&gt ; Technologist: RT Prashant(R) Trnscb Date/Time: 02/25/2020 (4689) Anya Orig Print D/T: S: 02/25/2020 (8176) PAGE 2 Signed Report COMPREHENSIVE METABOLIC [id number] 08:20:00 Test Item Value Reference Range Interpretation [...] 50-136 L TOTAL (test code = ALKP) [id number] 08:20:00 Test Item Value Reference Range Interpretation Comments MAGNESIUM (test code = MAG) 2.2 MG/DL 1.8-2.4 N THYROID STIMULATING [id number] 08:20:00 Test Item Value Reference Range Interpretation Comments THYROID STIMULATING HORMONE 5.430 mcIU/ML 0.340-4.820 H (test code = TSH) CBC W/AUTO [id number] 07:55:00 Test Item Value Reference Range Interpretation [...] N NRBC#) UA RFLX MICR CULT IF [id number] 12:29:00 Test Item Value Reference Range Interpretation [...] culture: Suprapubic PainUA RFLX MICR CULT IF [id number] 12:29:00 Test Item Value Reference Range Interpretation [...] for culture: Suprapubic PainCOVID 19 Asymptomatic IH [id number] 22:09:00 Test Item Value Reference Range Interpretation [...] tent with COVID-19. - CT ABD PELVIS W/[id number] 21:10:00 Name: DORA JOSEPH [facility] : 1970 Age/S: 50 / M [address] Unit #: [id number] Loc: [place] [address] Phys: Evin Castellanos MD Acct: [id number] Dis Date: Status: REG ER PHONE #: [phone] Exam Date: 02/23/20202047 FAX #: Reason: diffuse abdomen pain and distention EXAMS: CPT: [id number] CT ABD PELVIS W/CONT 19118 EXAM: - CT ABD PELVIS W/CONT LOCATION: [...] 1 Signed Report (CONTINUED) Name: DORA JOSEPH [facility] : 1970 Age/S: 50 / M [address] Unit #: [id number] Loc: [place] [address] Phys: Evin Castellanos MD Acct: [id number] Dis Date: Status: REG ER PHONE #: [phone] Date: 02/23/20202047 FAX #: Reason: diffuse abdomen pain and distention EXAMS: CPT: [id number] ABD PELVIS W/CONT 91979 <Continued> CT. No bowel wall thickening or [...] by: Marybel José M.D. CC: Susana Meza JTAC; Carl Luevano MD Technologist:Rudy Zuniga, RT(R)(CT)(MRI) CTDI: DLP: Trnscb Date/Time: 02/23/2020 (2109) [email or web address] Orig Print D/T: S: 02/23/2020 (2112) PAGE 2 Signed Report- XR CHEST 1 [id number] 21:03:00 Name: DORA JOSEPHIC [facility] : 1970 Age/S: 50 / M [address] Unit #: [id number] Loc: [place] [address] Phys: Evin Castellanos MD Acct: [id number] Dis Date: Status: REG ER PHONE #: [phone] Exam Date: 02/23/20202055 FAX #: Reason: Code Sepsis EXAMS: CPT: [id number] XR CHEST 1 V 74911 Fluoro Time: DAP (Gy m2): Air Kerma [...] by: Monica Quijano MD CC: Susana Meza JTAC; Carl Luevano MD PAGE1 Signed Report Name: DORA JOSEPH [facility] : 1970 Age/S: 50 / M [address] Unit #: [id number] Loc: [place] [address] Phys: Evin Castellanos MD Acct: [id number] Dis Date: Status: REG ER PHONE #: [phone] Exam Date: 02/23/20202055 FAX #: Reason: Code Sepsis EXAMS: CPT: [id number] XR CHEST 1 V 57306 Fluoro Time: DAP (Gy m2): Air Kerma (mGy): <Continued> Technologist: Rudy Zuniga RT(R)(CT)(MRI) Trnscb Date/Time: 02/23/2020 (2102) Alanis Orig Print D/T: S: 02/23/2020 (8312) PAGE 2 Signed ReportBASIC METABOLIC PANEL 2020-02-23 [...] 8.5-10.1 N Completed by Nursing: NOHEPATIC FUNCTION [id number] 20:02:00 Test Item Value Reference Range Interpretation [...] N code = ALKP) Completed by Nursing: GYKLGEWD5453-07-23 20:02:00 Test Item Value Reference Range Interpretation Comments LIPASE (test code = LIP) 97 Unit/L 114-286 L Completed by Nursing: QGTVDVTWWG-M3106-73-02 20:02:00 Test Item Value Reference Range Interpretation [...] brittani yby method. Completed by Nursing: NOLACTIC [id number] 19:59:00 Test Item Value Reference Range Interpretation Comments LACTIC ACID (test code = LACT) 1.2 mmol/L 0.4-2.0 N CBC W/AUTO [id number] 19:46:00 Test Item Value Reference Range Interpretation [...] CRITERIA = MDIFF) - XR ABDOMEN 2 [id number] 06:22:00 Name: DORA JOSEPH [facility] : 1970 Age/S: 50 / M [address] Unit #: [id number] Loc: [place] [address] Phys: Leonidas Robertson MD Acct: [id number] Dis Date: Status: ADM IN PHONE #: [phone] Exam Date: 02/19/2020 0440 FAX #: Reason: megacolon EXAMS: CPT: [id number] XR ABDOMEN 2 V 28995 Fluoro Time: DAP (Gy m2): Air Kerma [...] PAGE 1 Signed Report Name: DORA JOSEPH [facility] : 1970 Age/S: 50 / M [address] Unit #: [id number] Loc: [place] [address] Phys: Leonidas Robertson MD Acct: [id number] Dis Date: Status: ADM IN PHONE #: [phone] Exam Date: 02/19/2020 0440 FAX #: Reason: megacolon EXAMS: CPT: [id number] XR ABDOMEN 2 V 85980 Fluoro Time: DAP (Gy m2): Air Kerma (mGy): <Continued> Technologist: Carrie Barnett, RT(R)(CT) Trnscb Date/Time: 02/19/2020 (06) t.SDR.AL7 Orig Print D/T: S: 02/19/2020 (0625) PAGE 2 Signed ReportBASIC METABOLIC [id number] 05:52:00 Test Item Value Reference Range Interpretation [...] CA) 8.5 MG/DL 8.5-10.1 N CBC W/AUTO [id number] 05:40:00 Test Item Value Reference Range Interpretation [...] NO DIFF/SCN CRITERIA = MDIFF) BASIC METABOLIC [id number] 06:52:00 Test Item Value Reference Range Interpretation [...] CA) 8.3 MG/DL 8.5-10.1 L CBC W/AUTO [id number] 06:39:00 Test Item Value Reference Range Interpretation [...] DIFF/SCN CRITERIA = MDIFF) Coronavirus 2018 nCoV [id number] 05:35:00 Test Item Value Reference Range Interpretation [...] NA (test code = 139 mmol/L 135-145 6107931634) K (test code = 4.3 mmol/L 3.5-5 1757235170) CL (test code = 105 mmol/L 98-108 8768762739) CO2 TOTAL (test code = 30 mmol/L 23-31 4431312806) AGAP (test code = 2-16 2634314531) BUN (test code = 6 mg/dL 7-23 L 5031786175) GLUCOSE (test code = 94 mg/dL 70-110 6440525385) CREATININE (test code = 1.07 mg/dL 0.6-1.25 2600960100) CALCIUM (test code = 9.3 mg/dL 8.6-10.6 2230061451) eGFR Calculation mL/min/1.73m2 (Non-) (test code = 2806109007) eGFR Calculation mL/min/1.73m2 () (test code = 2018221286) GILBERTO (test code = GILBERTO) Association of [...] tests). Lab Interpretation Abnormal (test code = 65550-4) [facility] Test Item Value Reference Range Interpretation Comments MAGNESIUM (test code = 2517508236) 2.0 mg/dL 1.7-2.4 Lab Interpretation (test code = Normal 53189-6) [facility] [id number] 17:02:411. Interval worsening of air distended loops [...] with cecum measuring up to 15 cm. [facility]CBC WITH [id number] 07:20:00 Test Item Value Reference Range Interpretation Comments WBC (test code = See_Comment L [Automated 9832-2) message] The sy stem which generated this result transmitted reference range : 4.20 - 10.70 10*3/?L. The reference range was not used to interpret this result as normal/abnormal . RBC (test code = See_Comment [Automated 977-8) message] The sy stem which generated this [...] RDW-SD (test code = 46.5 fL 38.5-51.6 97042-0) RDW-CV (test code = 13.9 % 12.1-15.4 788-0) PLT (test code = See_Comment L [Automated 777-3) message] The sy stem which generated this result transmitted reference range : 150 - 328 10*3/ ?L. The reference r meredith was not used to interpret this result as normal/abnormal . MPV (test code = 10.7 fL 9.8-13 20725-5) NRBC/100 WBC (test See_Comment [Automat ed code = 3654629074) message] The system which generated this result transmitted reference range : 0.0 - 10.0 /100 WBCs. The refer ence range was not u sed to interpret th is result as normal/abnormal . NRBC x10^3 (test code <0.01 See_Comment [Auto mated = 2405909071) message] The s ystem which generated this result transmitted reference range : 10*3/?L. The reference range was not used to interpret this result as normal/abnormal . GRAN MAT (NEUT) % 48.6 % (test code = 770-8) IMM GRAN % (test code 0.20 % = 6017162223) LYMPH % (test code = 39.6 % 736-9) MONO % (test code = 8.4 % 5905-5) EOS % (test code = 2.7 % 713-8) BASO % (test code = 0.5 % 706-2) GRAN MAT x10^3(ANC) 1.96 10*3/uL 1.99-6.95 L (test code = 2371366458) IMM GRAN x10^3 (test <0.03 0-0.06 code = 9756050048) LYMPH x10^3 (test code 1.60 10*3/uL 1.09-3.23 = 731-0) MONO x10^3 (test code 0.34 10*3/uL 0.36-1.02 L = 742-7) EOS x10^3 (test code = 0.11 10*3/uL 0.06-0.53 711-2) BASO x10^3 (test code <0.03 0.01-0.09 = 704-7) Lab Interpretation Abnormal (test code = 54819-7) [facility] METABOLIC PANEL (NA, K, CL, CO2, GLUCOSE, BUN, CREATININE, CA)2020-01-31 06:32:00 Test Item Value Reference Range Interpretation Comments NA (test code = 138 mmol/L 135-145 5620884557) K (test code = 4.2 mmol/L 3.5-5 Slight 3640543716) hemolysis CL (test code = 108 mmol/L 98-108 7605541012) CO2 TOTAL (test code 22 mmol/L 23-31 L = 5726291861) AGAP (test code = 2-16 2109179968) BUN (test code = 7 mg/dL 7-23 Slight 9745534372) hemolysis GLUCOSE (test code = 92 mg/dL 70-110 9375925991) CREATININE (test code 1.02 mg/dL 0.6-1.25 = 8818132475) CALCIUM (test code = 8.9 mg/dL 8.6-10.6 6793513545) eGFR Calculation mL/min/1.73m2 (Non-) (test code = 6854088099) eGFR Calculation mL/min/1.73m2 () (test code = 1466468880) GILBERTO (test code = GILBERTO) Association of [...] tests). Lab Interpretation Abnormal (test code = 80995-9) [facility] WITH [id number] 11:00:00 Test Item Value Reference Range Interpretation [...] RDW-SD (test code = 48.7 fL 38.5-51.6 82542-1) RDW-CV (test code = 14.4 % 12.1-15.4 788-0) PLT (test code = See_Comment L [Automated 777-3) message] The sy stem which generated this result transmitted reference range : 150 - 328 10*3/ ?L. The reference r meredith was not used to interpret this result as normal/abnormal . MPV (test code = 10.7 fL 9.8-13 44177-4) IPF % (test code = 5.1 % 1.2-10.7 Platelet count 2106936318) measured by fluorescence method. NRBC/100 WBC (test See_Comment [Automat ed code = 9309761776) message] The system which generated this result transmitted reference range : 0.0 - 10.0 /100 WBCs. The refer ence range was not u sed to interpret th is result as normal/abnormal . NRBC x10^3 (test code <0.01 See_Comment [Auto mated = 1381887443) message] The s ystem which generated this result transmitted reference range : 10*3/?L. The reference range was not used to interpret this result as normal/abnormal . SEG % (test code = 53 % 33-76 64390-4) BAND % (test code = 1 % 0-1 63778-9) LYMPH % (test code = 39 % 14-54 57278-3) MONO % (test code = 4 % 0-4 35347-8) EOS % (test code = 3 % 0-3 77662-8) ANC (test code = 1.93 10*3/uL 1.99-6.95 L 7662331790) Lab Interpretation Abnormal (test code = 00727-2) [facility] Metabolic Panel (NA, K, CL, CO2, GLUCOSE, BUN, CREATININE, CA)2020-01-29 10:23:00 Test Item Value Reference Range Interpretation Comments NA (test code = 138 mmol/L 135-145 7669563709) K (test code = 4.0 mmol/L 3.5-5 2977894210) CL (test code = 109 mmol/L 98-108 H 2185668367) CO2 TOTAL (test code = 27 mmol/L 23-31 5609563083) AGAP (test code = 2-16 0645919866) BUN (test code = 16 mg/dL 7-23 0559364313) GLUCOSE (test code = 81 mg/dL 70-110 7854840916) CREATININE (test code = 1.14 mg/dL 0.6-1.25 4436683569) CALCIUM (test code = 8.6 mg/dL 8.6-10.6 2842199755) eGFR Calculation mL/min/1.73m2 (Non-) (test code = 2457609412) eGFR Calculation mL/min/1.73m2 () (test code = 6702311299) GILBERTO (test code = GILBERTO) Association of [...] tests). Lab Interpretation Abnormal (test code = 41386-1) [facility] HospitalCORON[facility]IRUS COVID-19 [id number] 04:27:00 Test Item Value Reference Range Interpretation Comments SARS-CoV-2 Rapid ID NOW Not Detected Not Detected (test code = 17880-2) GILBERTO (test code = GILBERTO) ID NOW COVID-19 Assay is an isothermal nucleic acid amplification test intended for the qualitative detection of nucleic acid from SARS-CoV-2 viral RNA in nasopharyngeal (JTAC) specimens. It is used under Emergency Use [...] indicated. Lab Interpretation Normal (test code = 29113-4) [facility] HospitalLactic Acid Whole [id number] 04:10:00 Test Item Value Reference Range Interpretation Comments LACTIC ACID (test code = 1.74 mmol/L 0.5-2.2 0970272611) [facility] HospitalCOVID[facility] (ID NOW RAPID TESTING)2020-01-29 02:17:00 Test Item Value Reference Range Interpretation Comments SARS-CoV-2 Rapid ID NOW Not Detected Not Detected (test code = 11967-2) GILBERTO (test code = GILBERTO) ID NOW COVID-19 Assay is an isothermal nucleic acid amplification test intended for the qualitative detection of nucleic acid from SARS-CoV-2 viral RNA in nasopharyngeal (JTAC) specimens. It is used under Emergency Use [...] indicated. Lab Interpretation Normal (test code = 50077-4) [facility] HospitalUrinalysis2020-06-07 02:14:00 Test Item Value Reference Range Interpretation Comments APPEARANCE (test code = Clear Clear 0058454275) COLOR (test code = Dark Yellow Yellow A 0706079822) PH (test code = 4.8-8.0 3310804764) SP GRAVITY (test code = 1.003-1.030 H 0699778588) GLU U QUAL (test code = Normal Normal 1639988552) BLOOD (test code = 1+ Negative A 3960056577) KETONES (test code = 5 mg/dL Negative A 1935080822) PROTEIN (test code = Negative Negative 2887-8) UROBILIN (test code = Normal Normal 7900796272) BILIRUBIN (test code = Negative Negative 0993341329) NITRITE (test code = Negative Negative 3584067774) LEUK ROGER (test code = Negative Negative 2777686847) RBC/HPF (test code = See_Comment H [Autom ated 8080942528) message] The sy stem which generated this result transmitted reference range : 0 - 3 HPF. The reference range was not used to interpret this result as normal/abnormal . WBC/HPF (test code = See_Comment [Autom ated 3162417741) message] The sy stem which generated this result transmitted reference range : 0 - 5 HPF. The reference range was not used to interpret this result as normal/abnormal . BACTERIA (test code = Moderate Negative A 2211905084) MUCOUS (test code = Slight Negative LPF A 7626237349) AMORPHOUS (test code = Rare Rare HPF 9288112450) SQ EPITH (test code = <1 See_Comment [Auto mated 9128790702) message] The sy stem which generated this result transmitted reference range : <=2 HPF. The reference range was not used to interpret this result as normal/abnormal . CA OXALATE (test code = See_Comment H [Au tomated 8772848159) message] The sy stem which generated this result transmitted reference range : <=1 HPF. The reference range was not used to interpret this result as normal/abnormal . HYAL CAST (test code = See_Comment H [Aut omated 7454700349) message] The sy stem which generated this result transmitted reference range : <=2 LPF. The reference range was not used to interpret this result as normal/abnormal . ASCORBIC ACID (test Negative code = 8359940073) Lab Interpretation Abnormal (test code = 80938-9) [facility] HospitalCT ABDOMEN PELVIS W [id number] 00:25:08Persistent marked and severe dilatation of the [...] is essentially stable compared to prior examination. [facility] (NA, K, CL, CO2, GLUCOSE, BUN, CREATININE, CA)2020-01-28 23:38:00 Test Item Value Reference Range Interpretation Comments NA (test code = 143 mmol/L 135-145 1503580163) K (test code = 4.2 mmol/L 3.5-5 9254210507) CL (test code = 111 mmol/L 98-108 H 8870285512) CO2 TOTAL (test code = 28 mmol/L 23-31 6667088384) AGAP (test code = 2-16 7335354813) BUN (test code = 15 mg/dL 7-23 0311676867) GLUCOSE (test code = 68 mg/dL 70-110 L 7979623053) CREATININE (test code = 1.32 mg/dL 0.6-1.25 H 1018949063) CALCIUM (test code = 9.0 mg/dL 8.6-10.6 2190527374) eGFR Calculation mL/min/1.73m2 (Non-) (test code = 8540525814) eGFR Calculation mL/min/1.73m2 () (test code = 9417654476) GILBERTO (test code = GILBERTO) Association of [...] tests). Lab Interpretation Abnormal (test code = 87697-3) [facility] HospitalHepatic Function Panel (ALB, T.PRO, BILI T, BU/BC, ALT, AST, ALK PHOS)2020-01-28 23:38:00 Test Item Value Reference Range Interpretation Comments TOTAL BILI (test code = 3232883566) 0.6 mg/dL 0.1-1.1 BILI UNCON (test code = 1839039287) 0.6 mg/dL 0.1-1.1 BILI CONJ (test code = 3934344038) 0.0 mg/dL 0-0.3 T PROTEIN (test code = 0097645581) 5.7 g/dL 6.3-8.2 L ALBUMIN (test code = 9761842596) 3.8 g/dL 3.5-5 ALK PHOS (test code = 5002979238) 37 U/L 34-122 ALTv (test code = 1742-6) 23 U/L 5-50 AST(SGOT) (test code = 0938563410) 25 U/L 13-40 Lab Interpretation (test code = Abnormal 70764-6) [facility] HospitalLipase Gaqhp5640-44-39 23:38:00 Test Item Value Reference Range Interpretation Comments LIPASE (test code = 9240517451) 62 U/L 0-220 Lab Interpretation (test code = Normal 69243-0) [facility] HospitalCBC WITH [id number] 23:29:00 Test Item Value Reference Range Interpretation Comments WBC (test code = See_Comment [Automated 1290-2) message] The sy stem which generated this result transmitted reference range : 4.20 - 10.70 10*3/?L. The reference range was not used to interpret this result as normal/abnormal . RBC (test code = See_Comment L [Automated 645-8) message] The sy stem which generated this [...] RDW-SD (test code = 47.5 fL 38.5-51.6 04854-1) RDW-CV (test code = 14.3 % 12.1-15.4 788-0) PLT (test code = See_Comment [Automated 777-3) message] The sy stem which generated this result transmitted reference range : 150 - 328 10*3/ ?L. The reference r meredith was not used to interpret this result as normal/abnormal . MPV (test code = 10.6 fL 9.8-13 78386-0) NRBC/100 WBC (test See_Comment [Automat ed code = 4756196007) message] The system which generated this result transmitted reference range : 0.0 - 10.0 /100 WBCs. The refer ence range was not u sed to interpret th is result as normal/abnormal . NRBC x10^3 (test code <0.01 See_Comment [Auto mated = 4944495253) message] The s ystem which generated this result transmitted reference range : 10*3/?L. The reference range was not used to interpret this result as normal/abnormal . GRAN MAT (NEUT) % 50.1 % (test code = 770-8) IMM GRAN % (test code 0.20 % = 0550183887) LYMPH % (test code = 34.7 % 736-9) MONO % (test code = 12.5 % 5905-5) EOS % (test code = 1.8 % 713-8) BASO % (test code = 0.7 % 706-2) GRAN MAT x10^3(ANC) 2.28 10*3/uL 1.99-6.95 (test code = 3382423567) IMM GRAN x10^3 (test <0.03 0-0.06 code = 8096664552) LYMPH x10^3 (test code 1.58 10*3/uL 1.09-3.23 = 731-0) MONO x10^3 (test code 0.57 10*3/uL 0.36-1.02 = 742-7) EOS x10^3 (test code = 0.08 10*3/uL 0.06-0.53 711-2) BASO x10^3 (test code 0.03 10*3/uL 0.01-0.09 = 704-7) Lab Interpretation Abnormal (test code = 52041-4) [facility] METABOLIC PANEL (NA, K, CL, CO2, GLUCOSE, BUN, CREATININE, CA)2020-01-26 18:34:00 Test Item Value Reference Range Interpretation Comments NA (test code = 138 mmol/L 135-145 0980556631) K (test code = 3.7 mmol/L 3.5-5 5975711502) CL (test code = 108 mmol/L 98-108 5911309543) CO2 TOTAL (test code = 25 mmol/L 23-31 5128496226) AGAP (test code = 2-16 7531919593) BUN (test code = 9 mg/dL 7-23 2608303324) GLUCOSE (test code = 107 mg/dL 70-110 0008436165) CREATININE (test code 0.96 mg/dL 0.6-1.25 = 6016260187) CALCIUM (test code = 8.7 mg/dL 8.6-10.6 1396755102) eGFR Calculation mL/min/1.73m2 (Non-) (test code = 2927391242) eGFR Calculation mL/min/1.73m2 () (test code = 0014441148) GILBERTO (test code = GILBERTO) Association of [...] or urine or abnormalities in imaging tests). [facility] HospitalMagnesium Cxlcn8235-75-88 08:33:00 Test Item Value Reference Range Interpretation Comments MAGNESIUM (test code = 1.9 mg/dL 1.7-2.4 Sligh t hemolysis 4064793790) Lab Interpretation (test Normal code = 24118-2) [facility] HospitalXR [id number] 06:18:53 Redemonstration of marked gaseous distention of the transverse anddescending colon. RL: 460 AFC: [id number] Ordering physician: HELENE GRIFFIN INDICATION: Abdominal pain COMPARISON: CT the abdomen and pelvis dated 01/24/2020 FINDINGS:Supine AP views of the abdomen and pelvis. There isredemonstration of marked distention of the transverse and descendingcolon. [facility], Radiant Results Inft User - 01/26/2020 1:20 AM CDTOrdering physician: HELENE GRIFFININDICATION: Abdominal painCOMPARISON: CT the abdomen and pelvis dated 01/24/2020FINDINGS: Supine AP views of the abdomen and pelvis. There isredemonstration of marked distention of the transverse and descendingcolon.IMPRESSIONRedemonstration of marked gaseous distention of the transverse anddescending colon.RL: 460AFC: [id number] signed by Angeli Carrillo MD, PhD at 01/26/2020 1:18 [facility] Phosphorus Wtssv6588-29-54 10:11:00 Test Item Value Reference Range Interpretation Comments PHOSPHORUS (test code = 7669933801) 3.9 mg/dL 2.5-5 Lab Interpretation (test code = Normal 04959-1) [facility] HospitalCOVID-19 (ID NOW RAPID TESTING)2020-01-25 05:12:00 Test Item Value Reference Range Interpretation Comments SARS-CoV-2 Rapid ID NOW Not Detected Not Detected (test code = 66127-2) GILBERTO (test code = GILBERTO) ID NOW COVID-19 Assay is an isothermal nucleic acid amplification test intended for the qualitative detection of nucleic acid from SARS-CoV-2 viral RNA in nasopharyngeal (JTAC) specimens. It is used under Emergency Use [...] indicated. Lab Interpretation Normal (test code = 99006-8) [facility] HospitalLactic Acid Whole Iyzvi4302-94-21 04:34:00 Test Item Value Reference Range Interpretation Comments LACTIC ACID (test code = 0.89 mmol/L 0.5-2.2 7260563166) [facility] HospitalCT ABDOMEN PELVIS W [id number] 02:47:02Impression: Marked distention and dilatation of the [...] wall, vasculature, and the bones are unremarkable. [facility], Radiant Results Inft User - 01/24/2020 9:48 [...] bowel as well. Rectal tubedecompression may be considered.[facility] IczkdfCiajebdqqm8516-54-77 01:51:00 Test Item Value Reference Range Interpretation Comments APPEARANCE (test code = Hazy Clear A 4912691707) COLOR (test code = Yellow Yellow 2018123994) PH (test code = 4.8-8.0 3981099600) SP GRAVITY (test code = 1.003-1.030 8068918443) GLU U QUAL (test code = Normal Normal 7328186938) BLOOD (test code = Negative Negative 4359915469) KETONES (test code = Negative Negative 4554130563) PROTEIN (test code = Negative Negative 2887-8) UROBILIN (test code = Normal Normal 8192481363) BILIRUBIN (test code = Negative Negative 8568506501) NITRITE (test code = Negative Negative 3528560145) LEUK ROGER (test code = Negative Negative 1231484881) RBC/HPF (test code = See_Comment H [Autom ated message] 4427287225) The system [employer] generated this result transmitted ref erence range: 0 - 3 HP F. The reference range was not used to int erpret this result as normal/abnormal . WBC/HPF (test code = See_Comment [Autom ated message] 1968128468) The system [employer] generated this result transmitted ref erence range: 0 - 5 HP F. The reference range was not used to int erpret this result as normal/abnormal . BACTERIA (test code = Negative Negative 1385461407) SQ EPITH (test code = <1 See_Comment [Auto mated message] 5476523424) The system [employer]me generated this result transmitted ref erence range: <=2 HPF. The reference range was not used to int erpret this result as normal/abnormal . CA OXALATE (test code = See_Comment H [Au tomated message] 2838309514) The system [employer]me generated this result transmitted ref erence range: <=1 HPF. The reference range was not used to int erpret this result as normal/abnormal . Lab Interpretation (test Abnormal code = 41579-3) [facility] (NA, K, CL, CO2, GLUCOSE, BUN, CREATININE, CA)2020-01-25 01:01:00 Test Item Value Reference Range Interpretation Comments NA (test code = 139 mmol/L 135-145 2513480795) K (test code = 4.6 mmol/L 3.5-5 Slight hemoly sis 6740797483) CL (test code = 107 mmol/L 98-108 8160057932) CO2 TOTAL (test 26 mmol/L 23-31 code = 8079308432) AGAP (test code = 2-16 9872035619) BUN (test code = 23 mg/dL 7-23 Slight hemo lysis 1901059643) GLUCOSE (test code 94 mg/dL 70-110 = 2104961094) CREATININE (test 1.13 mg/dL 0.6-1.25 code = 9095358709) CALCIUM (test code 8.9 mg/dL 8.6-10.6 = 8186615139) eGFR Calculation mL/min/1.73m2 (Non-) (test code = 3191565120) eGFR Calculation mL/min/1.73m2 () (test code = 6754730765) GILBERTO (test code = Association of GILBERTO) [...] or urine or abnormalities in imaging tests). [facility] HospitalHepatic Function Panel (ALB, T.PRO, BILI T, BU/BC, ALT, AST, ALK PHOS)2020-01-25 01:01:00 Test Item Value Reference Range Interpretation Comments TOTAL BILI (test code = 5432145694) 0.7 mg/dL 0.1-1.1 BILI UNCON (test code = 7921522890) 0.6 mg/dL 0.1-1.1 BILI CONJ (test code = 9057761057) 0.0 mg/dL 0-0.3 T PROTEIN (test code = 3699346819) 6.2 g/dL 6.3-8.2 L ALBUMIN (test code = 1022958420) 4.1 g/dL 3.5-5 ALK PHOS (test code = 8701511377) 46 U/L 34-122 ALTv (test code = 1742-6) 27 U/L 5-50 AST(SGOT) (test code = 7413014939) 31 U/L 13-40 Lab Interpretation (test code = Abnormal 58125-1) [facility] HospitalLipase Bttks2775-13-15 01:01:00 Test Item Value Reference Range Interpretation Comments LIPASE (test code = 2680493355) 246 U/L 0-220 H Lab Interpretation (test code = Abnormal 57515-1) [facility] HospitalCB WITH [id number] 00:49:00 Test Item Value Reference Range Interpretation [...] RDW-SD (test code = 46.8 fL 38.5-51.6 81191-4) RDW-CV (test code = 14.2 % 12.1-15.4 788-0) PLT (test code = See_Comment [Automated 777-3) message] The sy stem which generated this result transmitted reference range : 150 - 328 10*3/ ?L. The reference r meredith was not used to interpret this result as normal/abnormal . MPV (test code = 10.7 fL 9.8-13 34378-6) NRBC/100 WBC (test See_Comment [Automat ed code = 6289208026) message] The system which generated this result transmitted reference range : 0.0 - 10.0 /100 WBCs. The refer ence range was not u sed to interpret th is result as normal/abnormal . NRBC x10^3 (test code <0.01 See_Comment [Auto mated = 3535248836) message] The s ystem which generated this result transmitted reference range : 10*3/?L. The reference range was not used to interpret this result as normal/abnormal . GRAN MAT (NEUT) % 56.9 % (test code = 770-8) IMM GRAN % (test code 0.20 % = 0031190650) LYMPH % (test code = 31.2 % 736-9) MONO % (test code = 9.7 % 5905-5) EOS % (test code = 1.6 % 713-8) BASO % (test code = 0.4 % 706-2) GRAN MAT x10^3(ANC) 2.86 10*3/uL 1.99-6.95 (test code = 9723284967) IMM GRAN x10^3 (test <0.03 0-0.06 code = 3423105628) LYMPH x10^3 (test code 1.57 10*3/uL 1.09-3.23 = 731-0) MONO x10^3 (test code 0.49 10*3/uL 0.36-1.02 = 742-7) EOS x10^3 (test code = 0.08 10*3/uL 0.06-0.53 711-2) BASO x10^3 (test code <0.03 0.01-0.09 = 704-7) Lab Interpretation Abnormal (test code = 31939-1) [facility]- [facility]BD[facility]EN 1 [id number] 07:32:00 Name: DORA JOSEPH Dresser : 1970 Age/S: 49 / M [address] Unit #: [id number] Loc: [place] [address] Phys: Jay Mayo MD Acct: [id number] Dis Date: Status: ADM IN PHONE #: [phone] Exam Date: 01/10/2020 0658 FAX #: Reason: follow up colonic ileus EXAMS: CPT: [id number] XR ABDOMEN 1 V 54702 Fluoro Time: DAP (Gy m2): Air Kerma [...] PAGE 1 Signed Report Name: DORA JOSEPH Dresser : 1970Age/S: 49 / M [facility] [place] [address] [place] Unit #: [id number] Loc: [place] [address] Phys: Jay Mayo MD Acct: [id number] Dis Date: Status: ADM IN PHONE #: [phone] Exam Date: 01/10/2020 0658 FAX #: Reason: follow up colonic ileus EXAMS: CPT: [id number] XR ABDOMEN 1 V 66118 Fluoro Time: DAP (Gy m2): Air Kerma (mGy): <Continued> Technologist: Bakari De Leon RT(R)(CT) Trnscb Date/Time: 01/10/2020 (0732) GarettCB5 Orig Print D/T: S: 01/10/2020 (0736) PAGE 2 Signed ReportCOMPREHENSIVE METABOLIC [id number] 05:56:00 Test Item Value Reference Range Interpretation [...] TOTAL (test code = ALKP) CBC W/AUTO [id number] 05:42:00 Test Item Value Reference Range Interpretation [...] = NO DIFF/SCN CRITERIA MDIFF) BASIC METABOLIC [id number] 06:59:00 Test Item Value Reference Range Interpretation [...] code = CA) 8.5 MG/DL 8.5-10.1 N [id number] 06:59:00 Test Item Value Reference Range Interpretation Comments MAGNESIUM (test code = MAG) 2.2 MG/DL 1.8-2.4 PROTHROMBIN [id number] 06:39:00 Test Item Value Reference Range Interpretation Comments PT PATIENT (test code = PTP) 13.1 SECONDS 9.3-12.9 H INTERNATIONAL NORMAL RATIO 1.16 INR Unit 0.8-1.2 N (test code = INR) CBC W/AUTO [id number] 06:22:00 Test Item Value Reference Range Interpretation [...] DIFF/SCN CRITERIA MDIFF) - XR ABDOMEN 1 [id number] 05:39:00 Name: DORA JOSEPH Dresser : 1970 Age/S: 49 / M [address] Unit #: [id number] Loc: [place] [address] 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 Acct: [id number] Dis Date: Status: ADM IN PHONE#: [phone] Exam Date: 01/09/2020522 FAX #: Reason: colonic ileus/obstruction EXAMS: CPT: [id number] XR ABDOMEN 1 V 54544 Fluoro Time: DAP (Gy m2): Air Kerma [...] PAGE 1 Signed Report Name: DORA JOSEPH Dresser : 1970 Age/S: 49 / M [address] [address] Unit #: [id number] Loc: [place] [address] 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 Acct: [id number] Dis Date: Status: ADM IN PHONE #: [phone] Exam Date: 01/09/2020522 FAX #: Reason: colonic ileus/obstruction EXAMS: CPT: [id number] XR ABDOMEN 1 V 98169 Fluoro Time: DAP (Gy m2): Air Kerma (mGy): <Continued> Technologist: Carrie Barnett, RT(R)(CT) Trnscb Date/Time: 01/09/2020 (0539) tDARWINR.FC Orig Print D/T: S: 01/09/2020 (0520) PAGE 2 Signed ReportCoronavirus 2018 nCoV [id number] 22:38:00 Test Item Value Reference Range Interpretation Comments Coronavirus 2019 nCoV Bedside (test Negative Negative code = [id number]) Emergent procedure? YESCoronavirus 2018 nCoV [id number] 22:38:00 Test Item Value Reference Range Interpretation Comments Coronavirus 2019 nCoV Bedside (test Negative Negative code = [id number]) Emergent procedure? YESBASIC METABOLIC [id number] 18:42:00 Test Item Value Reference Range Interpretation [...] CA) 8.5 MG/DL 8.5-10.1 N CBC W/AUTO [id number] 10:50:00 Test Item Value Reference Range Interpretation [...] = NO DIFF/SCN CRITERIA MDIFF) COMPREHENSIVE METABOLIC [id number] 10:46:00 Test Item Value Reference Range Interpretation [...] 50-136 N TOTAL (test code = ALKP) [id number] 10:46:00 Test Item Value Reference Range Interpretation Comments MAGNESIUM (test code = MAG) 2.6 MG/DL 1.8-2.4 H COMPREHENSIVE METABOLIC [id number] 10:34:00 Test Item Value Reference Range Interpretation [...] TOTAL (test Unit/L 50-136 code = ALKP) [id number] 10:34:00 Test Item Value Reference Range Interpretation Comments MAGNESIUM (test code = MAG) MG/DL 1.8-2.4 - XR ABDOMEN 1 [id number] 08:28:00 Name: DORA JOSEPH Dresser : 1970 Age/S: 49 / M [address] [address] Unit #: [id number] Loc: [place] [address] Phys: Yas Edwards MD Acct: [id number] Dis Date: Status: ADM IN PHONE#: [phone] Exam Date: 01/08/2020509 FAX #: Reason: ileus EXAMS: CPT: [id number] XR ABDOMEN 1 C67957 Fluoro Time: DAP (Gy m2): Air Kerma [...] PAGE 1 Signed Report Name: DORA JOSEPH Dresser : 1970 Age/S: 49 / M [address] [address] Unit #: [id number] Loc: [place] [address] Phys: Yas Edwards MDAcct: [id number] Dis Date: Status: ADM IN PHONE #: [phone] Exam Date: 01/08/2020509 FAX #:Reason: ileus EXAMS: CPT: [id number] XR ABDOMEN 1 V 84158 Fluoro Time: DAP (Gy m2): Air Kerma (mGy): <Continued> Technologist: Carrie Barnett, RT(R)(CT); ... Trnscb Date/Time: 01/08/2020 (827) t.FLEXR.JTM Orig Print D/T: S: 01/08/2020 (830) PAGE 2 Signed ReportCOMPREHENSIVE METABOLIC [id number] 07:08:00 Test Item Value Reference Range Interpretation [...] 50-136 L TOTAL (test code = ALKP) [id number] 07:08:00 Test Item Value Reference Range Interpretation Comments MAGNESIUM (test code = MAG) 1.3 MG/DL 1.8-2.4 L COMPREHENSIVE METABOLIC [id number] 05:16:00 Test Item Value Reference Range Interpretation [...] 50-136 L TOTAL (test code = ALKP) [id number] 05:16:00 Test Item Value Reference Range Interpretation Comments MAGNESIUM (test code = MAG) 1.3 MG/DL 1.8-2.4 L CBC W/AUTO [id number] 05:02:00 Test Item Value Reference Range Interpretation [...] (test code = NO DIFF/SCN CRITERIA MDIFF) [id number] 16:51:00 Test Item Value Reference Range Interpretation Comments MAGNESIUM (test code = MAG) 2.3 MG/DL 1.8-2.4 N FE W/TOTAL IRON BINDING CAP.2020-01-07 16:51:00 Test Item Value Reference Range Interpretation Comments SERUM IRON (test code = IRON) 38 mcG/DL 65-175 L TOTAL IRON BINDING CAPACITY (test 322 mcG/DL 250-450 N code = TIBC) IRON SATURATION (test code = 12 % calc 12-57 N FESAT) [id number] 16:51:00 Test Item Value Reference Range Interpretation Comments FERRITIN (test code = DAVID) 17.6 NG/ML 5.0-323.0 N CALCIUM [id number] 16:50:00 Test Item Value Reference Range Interpretation Comments CALCIUM IONIZED (test code = NAVEED) 1.12 mmol/L 1.12-1.32 N - XR ABDOMEN 1 [id number] 10:29:00 Name: DORA JOSEPH Dresser : 1970 Age/S: 49 / M [address] [address] Unit #: [id number] Loc: [place] [address] Phys: Verona Frost PA-C Acct: [id number] Dis Date: Status: ADM IN PHONE #: [phone] Exam Date: 01/07/2020 07 FAX #: Reason: reassess SBO EXAMS: CPT: [id number] XR ABDOMEN 1 V 56712 Fluoro Time: DAP (Gy m2): Air Kerma [...] PAGE 1 Signed Report Name: DORA JOSEPH Dresser : 1970 Age/S: 49 / M [address] [address] Unit #: [id number] Loc: [place] [address] Phys: Verona Frost PA-C Acct: [id number] Dis Date: Status: ADM IN PHONE #: [phone] Exam Date: 01/07/2020 0712 FAX #: Reason: reassess SBO EXAMS: CPT: [id number] XR ABDOMEN 1 V 18209 Fluoro Time: DAP (Gy m2): Air Kerma (mGy): <Continued> Technologist: Bakari De Leon RT(R)(CT) Trnscb Date/Time: 01/07/2020 (6416) t.SDR.AGV Orig Print D/T: S: 01/07/2020 (8476) PAGE 2 Signed ReportBASIC METABOLIC PANEL 2020-01-07 [...] CA) 5.4 MG/DL 8.5-10.1 LL CBC W/AUTO [id number] 06:49:00 Test Item Value Reference Range Interpretation [...] = NO DIFF/SCN CRITERIA MDIFF) COMPREHENSIVE METABOLIC [id number] 06:10:00 Test Item Value Reference Range Interpretation [...] TOTAL (test code = ALKP) CBC W/AUTO [id number] 05:52:00 Test Item Value Reference Range Interpretation [...] DIFF/SCN CRITERIA MDIFF) - XR ABDOMEN 1 [id number] 01:30:00 [facility] 1970 Age/S: 49 / M [address] [address] Unit #: [id number] Loc: [place] [address] Phys: Ted Coleman NP Acct: [id number] Dis Date: Status: ADM IN PHONE #: [phone] Exam Date: 01/06/202099 FAX #: Reason: NG Tube Placement Verification EXAMS: CPT: [id number] XR ABDOMEN 1 V 84906 Fluoro Time: DAP (Gy m2): Air Kerma (mGy): Exam: KUB. Location: H 12 History: NG Tube Placement Verification Findings: A supine view of the abdomen demonstrates gas eous distention of the colon. A nasogastric tube is in place, the tip is in the stomach. No organomegaly, abnormal masses or calcifications are seen. No pneumatosis or free air is present. Impression: Satisfactory nasogastric tube placement. Electronically Signed by Renée Do on 0 01/06/2020 at 0130 Reported and signed by: Teo Do M.D. CC: Mark Perea MD; Ted Coleman JTAC PAGE 1 Signed Report Name: [facility]PH [facility] : 1970 Age/S: 49/ M [address] [address] Unit #: [id number] Loc: [place] [address] Phys: Ted Coleman NP Acct: [id number] Dis Date: Status: ADM IN PHONE #: [phone] Exam Date: 01/06/202099 FAX #: Reason:NG Tube Placement Verification EXAMS: CPT: [id number] XR ABDOMEN 1 V 83976 Fluoro Time: DAP (Gy m2):Air Kerma (mGy): <Continued> Technologist: RT Tatum(R) Trnscb Date/Time: 01/06/2020 (129) GarettFC Orig Print D/T: S: 01/06/2020 (3842) PAGE 2 Signed Report- CT ABD PELVIS W/O [id number] 19:42:00 Joes: St: REG -- Name: DORA JOSEPH [facility] : 1970 Age/S: 49/M [address] [facility] Unit: [id number] Loc: [place], [place] Phys: [place] [address] Acct: [id number] Dis Date: Status: REG ER PHONE #: [phone] Exam Date: 12/13/20191924 FAX #: [phone] Reason: pain EXAMS: CPT CODE: [id number] CT ABD PELVIS W/O CONT 80897 Examination: CT scan abdomen and pelvis without contrast. Location code: 60. TECHNIQUE: Multiple axial images of the [...] Technologist: SUJATA ALMANZAR Trnscrd Dt/Tm: 12/13/2019 (1941) t.FLEXR.VR5 Orig Parvin nt D/T: S: 12/13/2019 (5 PAGE 1 Signed ReportBASIC METABOLIC [id number] 18:49:00 Test Item Value Reference Range Interpretation [...] code = CA) 8.6 mg/dl 8.0-10.5 N [id number] 18:49:00 Test Item Value Reference Range Interpretation Comments LIPASE (test code = LIP) 97 Units/L 65.0-230.0 N CBC W/AUTO [id number] 18:38:00 Test Item Value Reference Range Interpretation [...] K/mm3 0.0-0.2 N - XR CHEST 1 [id number] 18:36:00 Joes: St: PRE -- Name: DORA JOSEPH [facility] : 1970 Age/S: 49/M [address] [place] [address] [employer] Unit #: [id number] Loc: [place], [place] Phys: [place] [address] Acct: [id number] Dis Date: Status: PRE ER PHONE #: [phone] Exam Date: 12/13/20191821 FAX #: [phone] Reason: SOB EXAMS: CPT CODE: [id number] XR CHEST 1 V 82416 Examination: One view chest x-ray Location code: [...] : By: GarettVR5 PAGE 1 Signed Report Joes: St: PRE ------- Name: DORA JOSEPH [facility] : 1970 Age/S: 49/M [address] [place] [address] [employer] Unit #: [id number] Loc: [place], [place] Phys: [place] [address] Acct: [id number] Dis Date: Status: PRE ER PHONE #: [phone] Exam Date: 12/13/2019 1822 FAX #: [phone] Reason: SOB EXAMS: CPT CODE: [id number] XR CHEST 1 V 53362 (Continued) Orig Print D/T: S: 12/13/2019 (1839) [...] Received comment: User comments: Slide comments:BASIC METABOLIC [id number] 07:34:00 Test Item Value Reference Range Interpretation [...] S NOT APPLICABLE FOR DIALYSIS PATIEN TS. [id number] 07:26:00 Test Item Value Reference Range Interpretation Comments PHOSPHORUS (BEAKER) (test code = 3.1 mg/dL 2.3-4.7 604) [id number] 07:26:00 Test Item Value Reference Range Interpretation Comments MAGNESIUM (BEAKER) (test code = 1.6 mg/dL 1.6-2.6 627) RAD, ABDOMEN/KUB, 1 VIEW [id number] 07:04:00Reason for exam:->ileusFINAL REPORT Abdomen , one [...] MDReport Verified Date/Time: 04/03/2019 07:04:46 Reading Location: [facility] C0X Ortho Consult Reading Room BASIC METABOLIC [id number] 06:47:00 Test Item Value Reference Range Interpretation [...] code = 413) URINALYSIS WITH MICROSCOPIC IF [id number] 22:01:00 Test Item Value Reference Range Interpretation [...] 463) SOURCE(BEAKER) (test code = 2795) URINALYSIS [id number] 22:01:00 Test Item Value Reference Range Interpretation Comments RBC UA (BEAKER) (test code = 519) 18 /HPF WBC UA (BEAKER) (test code = 520) 1 /HPF CALCIUM OXALATE CRYSTALS (BEAKER) Occasional (test code = 518) [id number] 05:49:00 Test Item Value Reference Range Interpretation Comments PHOSPHORUS (BEAKER) (test code = 2.5 mg/dL 2.3-4.7 604) [id number] 05:49:00 Test Item Value Reference Range Interpretation Comments MAGNESIUM (BEAKER) (test code = 1.7 mg/dL 1.6-2.6 627) BASIC METABOLIC [id number] 05:49:00 Test Item Value Reference Range Interpretation [...] (BEAKER) (test code = 413) BASIC METABOLIC [id number] 06:19:00 Test Item Value Reference Range Interpretation [...] S NOT APPLICABLE FOR DIALYSIS PATIEN TS. [id number] 06:10:00 Test Item Value Reference Range Interpretation Comments MAGNESIUM (BEAKER) 1.8 mg/dL 1.6-2.6 Specimen slightly (test code = 627) hemolyzed [id number] 06:10:00 Test Item Value Reference Range Interpretation [...] (BEAKER) (test code = 413) BASIC METABOLIC [id number] 04:57:00 Test Item Value Reference Range Interpretation [...] S NOT APPLICABLE FOR DIALYSIS PATIEN TS. [id number] 04:55:00 Test Item Value Reference Range Interpretation Comments PHOSPHORUS (BEAKER) (test code = 2.6 mg/dL 2.3-4.7 604) [id number] 04:55:00 Test Item Value Reference Range Interpretation Comments MAGNESIUM (BEAKER) (test code = 1.8 mg/dL 1.6-2.6 627) CT, [id number] 14:16:00FINAL REPORT TECHNIQUE: CT of the abdomen [...] Pope MDReport Verified Date/Time: 03/29/2019 14:16:01Reading Location: [facility] B1 C013Y CT Body Reading Room , ABDOMEN/KUB, 1 VIEW [id number] 10:23:00Reason for exam:->evaluate ileusFINAL REPORT Technique: Supine [...] MDReport Verified Date/Time: 03/29/2019 10:23:29 Reading Location: [facility] Reading Room CBC (HEMOGRAM ONLY)2019-03-29 [...] WBC 0-0 (BEAKER) (test code = 413) [id number] 06:20:00 Test Item Value Reference Range Interpretation Comments PHOSPHORUS (BEAKER) (test code = 2.6 mg/dL 2.3-4.7 604) [id number] 06:20:00 Test Item Value Reference Range Interpretation Comments MAGNESIUM (BEAKER) (test code = 2.0 mg/dL 1.6-2.6 627) BASIC METABOLIC [id number] 06:20:00 Test Item Value Reference Range Interpretation [...] TS. RAD, ABDOMEN SERIES W/ UPRIGHT PA [id number] 22:18:00Reason for exam:- >eval ileusFINAL REPORT CLINICAL [...] Date/Time: 03/28/2019 22:18:50 RAD, ABDOMEN/KUB, 1 VIEW [id number] 11:23:00Reason for exam:->abdominal distensionShould this be performed [...] focal transition point is identified. Signed: Candido Ontiverosort Verified Date/Time: 03/28/2019 11:23:34 Reading Location: [facility] Radiology Reading Room TISSUE [id number] 09:00:00Surgical Pathology Report Case: [id number] Authorizing Provider: Graciela Garrison MD Collected: 03/25/2019 1133 Ordering Location: [facility] Received: 03/25/2019 1527 [...] NEGATIVEFOR MALIGNANCY Signing Pathologist Direct Phone Line: [phone] signed by Jordan Celaya MD on 03/28/2019 at 9:00 [id number] and postop diagnosis: ileostomy statusA. End ileostomy; [...] nodes are not identified in the mesentery. Car Runner sections are submitted. Section code: A, account service representative section of each end of first mentioned segment of small bowel; A2, account service representative of first mentioned segment of small bowel mucosa; A3, area of hemorrhagic mesentery of second mentioned segment of mucosa; A4, account service representative of hemorrhagic mucosa at open end of second portion of small bowel; A5, account service representative of stapled margin from second mentioned [...] 0.2 cm. No gross lesions are identified. Car Runner sections are submitted. Section code: B1, proximal margin en face and tip; B2, account service representative cross section. CG/pl Performed.[id number] 06:23:00 Test Item Value Reference Range Interpretation Comments PHOSPHORUS (BEAKER) (test code = 2.7 mg/dL 2.3-4.7 604) [id number] 06:23:00 Test Item Value Reference Range Interpretation Comments MAGNESIUM (BEAKER) (test code = 1.9 mg/dL 1.6-2.6 627) BASIC METABOLIC [id number] 06:23:00 Test Item Value Reference Range Interpretation [...] S NOT APPLICABLE FOR DIALYSIS PATIEN TS. [id number] 08:20:00 Test Item Value Reference Range Interpretation Comments PHOSPHORUS (BEAKER) (test code = 2.6 mg/dL 2.3-4.7 604) [id number] 08:20:00 Test Item Value Reference Range Interpretation Comments MAGNESIUM (BEAKER) (test code = 1.8 mg/dL 1.6-2.6 627) BASIC METABOLIC [id number] 08:20:00 Test Item Value Reference Range Interpretation [...] S NOT APPLICABLE FOR DIALYSIS PATIEN TS. [id number] 06:06:00 Test Item Value Reference Range Interpretation Comments PHOSPHORUS (BEAKER) (test code = 4.1 mg/dL 2.3-4.7 604) [id number] 06:06:00 Test Item Value Reference Range Interpretation Comments MAGNESIUM (BEAKER) (test code = 1.8 mg/dL 1.6-2.6 627) BASIC METABOLIC [id number] 06:06:00 Test Item Value Reference Range Interpretation [...] S NOT APPLICABLE FOR DIALYSIS PATIEN TS. [id number] 06:03:00 Test Item Value Reference Range Interpretation Comments PHOSPHORUS (BEAKER) (test code = 4.2 mg/dL 2.3-4.7 604) [id number] 06:03:00 Test Item Value Reference Range Interpretation Comments MAGNESIUM (BEAKER) (test code = 2.0 mg/dL 1.6-2.6 627) BASIC METABOLIC [id number] 06:03:00 Test Item Value Reference Range Interpretation [...] WBC 0-0 (BEAKER) (test code = 413) [id number] 05:52:00 Test Item Value Reference Range Interpretation Comments PHOSPHORUS (BEAKER) (test code = 4.2 mg/dL 2.3-4.7 604) [id number] 05:52:00 Test Item Value Reference Range Interpretation Comments MAGNESIUM (BEAKER) (test code = 1.9 mg/dL 1.6-2.6 627) BASIC METABOLIC [id number] 05:52:00 Test Item Value Reference Range Interpretation [...] S NOT APPLICABLE FOR DIALYSIS PATIEN TS. [id number] 06:51:00 Test Item Value Reference Range Interpretation Comments PHOSPHORUS (BEAKER) (test code = 4.3 mg/dL 2.3-4.7 604) [id number] 06:51:00 Test Item Value Reference Range Interpretation Comments MAGNESIUM (BEAKER) (test code = 2.0 mg/dL 1.6-2.6 627) BASIC METABOLIC [id number] 06:51:00 Test Item Value Reference Range Interpretation [...] 0-0 (BEAKER) (test code = 413) TISSUE [id number] 11:50:00Surgical Pathology Report Case: [id number] Authorizing Provider: Mela Larson MD Collected: 03/18/2019 1827 Ordering Location: [facility] PERI[facility] Received: 03/21/2019 0823 SERVICES Pathologist: Jordan Celaya MD Specimen: Small Bowel, NOS A. SMALL BOWEL, ILEOSTOMY PROLAPSE, TAKEDOWN: - ANASTOMOSIS SITE WITH ACTIVE CHRONIC INFLAMMATION AND FOCAL ISCHEMIC CHANGES - MUCOSAL RESECTIONMARGINS, NEGATIVE FOR MALIGNANCY - ONE BENIGN LYMPH NODE (0/1) - NEGATIVE FOR DYSPLASIA OR MALIGNANCY Signing Pathologist Direct Phone Line: [phone] signed by Jordan Celaya MD on 03/22/2019 at 11:50 [id number] of ileostomyReceived in a container labeled "small [...] 0.5 to 1.2 cm in greatest dimension. Car Runner sections are submitted as follows: A1-A2, mucosal resection margin, en face; A3-A6, account service representative sections of the possible ostomy stump; A7-A11, serial account service representative sections from mucosal resection margin to the possible ostomy stump; A12, two lymph nodes. TH/plPerformed.[id number] 06:58:00 Test Item Value Reference Range Interpretation Comments PHOSPHORUS (BEAKER) (test code = 3.8 mg/dL 2.3-4.7 604) [id number] 06:58:00 Test Item Value Reference Range Interpretation Comments MAGNESIUM (BEAKER) (test code = 2.0 mg/dL 1.6-2.6 627) BASIC METABOLIC [id number] 06:58:00 Test Item Value Reference Range Interpretation [...] PATIEN TS. CBC W/PLT COUNT & AUTO [id number] 05:42:00 Test Item Value Reference Range Interpretation [...] PERCENT (BEAKER) (test code = 2801) FL, [id number] 17:42:00Reason for exam:->evaluate for colon stricture as [...] MDReport Verified Date/Time: 03/21/2019 17:42:21 Reading Location: [address] Ortho Consult Reading Room [id number] 03:58:00 Test Item Value Reference Range Interpretation Comments PHOSPHORUS (BEAKER) (test code = 3.0 mg/dL 2.3-4.7 604) [id number] 03:58:00 Test Item Value Reference Range Interpretation Comments MAGNESIUM (BEAKER) (test code = 2.0 mg/dL 1.6-2.6 627) BASIC METABOLIC [id number] 03:58:00 Test Item Value Reference Range Interpretation [...] PATIEN TS. CBC W/PLT COUNT & AUTO [id number] 03:20:00 Test Item Value Reference Range Interpretation [...] (BEAKER) (test code = 2801) BASIC METABOLIC [id number] 06:26:00 Test Item Value Reference Range Interpretation [...] S NOT APPLICABLE FOR DIALYSIS PATIEN TS. [id number] 06:05:00 Test Item Value Reference Range Interpretation Comments PHOSPHORUS (BEAKER) (test code = 2.2 mg/dL 2.3-4.7 L 604) [id number] 06:05:00 Test Item Value Reference Range Interpretation Comments MAGNESIUM (BEAKER) (test code = 2.0 mg/dL 1.6-2.6 627) CBC W/PLT COUNT & AUTO [id number] 05:25:00 Test Item Value Reference Range Interpretation [...] 0-1 PERCENT (BEAKER) (test code = 2801) [id number] 04:31:00 Test Item Value Reference Range Interpretation Comments PHOSPHORUS (BEAKER) (test code = 3.7 mg/dL 2.3-4.7 604) [id number] 04:31:00 Test Item Value Reference Range Interpretation Comments MAGNESIUM (BEAKER) (test code = 1.9 mg/dL 1.6-2.6 627) BASIC METABOLIC [id number] 04:31:00 Test Item Value Reference Range Interpretation [...] PATIEN TS. CBC W/PLT COUNT & AUTO [id number] 04:15:00 Test Item Value Reference Range Interpretation [...] 0-1 PERCENT (BEAKER) (test code = 2801) [id number] 06:41:00 Test Item Value Reference Range Interpretation Comments PHOSPHORUS (BEAKER) (test code = 3.1 mg/dL 2.3-4.7 604) [id number] 06:41:00 Test Item Value Reference Range Interpretation Comments MAGNESIUM (BEAKER) (test code = 1.9 mg/dL 1.6-2.6 627) BASIC METABOLIC [id number] 06:41:00 Test Item Value Reference Range Interpretation [...] PATIEN TS. CBC W/PLT COUNT & AUTO [id number] 06:36:00 Test Item Value Reference Range Interpretation [...] PERCENT (BEAKER) (test code = 2801) CT, [id number] 17:04:00No PO contrastFINAL REPORT ABDOMINAL AND PELVIS [...] MDReport Verified Date/Time: 03/17/2019 17:04:19 Reading Location: [facility] C013Y CT Body Reading Room XR ABDOMEN 2 [id number] 09:03:45XR ABDOMEN 2 VIEWSLOCATION: [id number]: Colstomy ProlapseCOMPARISON: Chest radiograph 04/15/2017, CT of [...] Nonspecific, nonobstructive bowel gas pattern.XR CHEST 1 [id number] 11:32:15EXAM: CHEST ONE VIEWINDICATION: Chest painCOMPARISON: None availableTECHNIQUE: AP view of the chest.FINDINGS: The cardiomediastinal silhouette is normal. The lungs are clearbilaterally. No pneumothoraxor pleural effusion is identified. Theosseous structures are unremarkable.IMPRESSION: No acute cardiopulmonary process.LOCATION: I43Tuzrz Type and [id number] 21:21:00 Test Item Value Reference Range Interpretation Comments ABO type (test code = ABO) O Rh Type (test code = RH) Positive Comprehensive Metabolic [id number] 20:36:00 Test Item Value Reference Range Interpretation [...] into account, if the informationis provided. If e race is not provided , and [...] the [employer],http ://nkd ep.nih.gov Alcohol/Ethanol, [id number] 20:36:00 Test Item Value Reference Range Interpretation Comments Alcohol, Ethyl <0.01 g/dL 0.00-0.01 N Intoxicated 0 .080 g/dL (test code = ETOH) or more Prothrombin [id number] 20:00:00 Test Item Value Reference Range Interpretation Comments PT (test code = PT) 10.10 seconds 9.78-13.35 N INR (test code = INR) 0.88 Ratio 0.6-1.2 N Partial Thromboplastin [id number] 20:00:00 Test Item Value Reference Range Interpretation Comments aPTT (test code = PTT) 31.50 seconds 24.39-37.25 N CBC with [id number] 19:50:00 Test Item Value Reference Range Interpretation [...] code = ALYMPH) 2.2 K/cumm 0.5-4.6 N [place] Abs (test code = AMONO) 0.4 K/cumm 0.0-1.2 N Eos Abs (test code = AEOS) 0.17 K/cumm 0.00-0.74 N Baso Abs (test code = ABASO) 0.0 K/cumm 0.00-0.21 N [id number]& PELVIS W/O [id number] 17:36:28CT ABDOMEN AND PELVIS WITHOUT CONTRAST.CLINICAL HISTORY: [...]
--- NOTE | 2022-06-22 20:48 | ER ---
Nurse's Notes [facility] Name: Rico Mcneill Age: 52 yrs Sex: Male : 1970 Arrival Date: 06/22/2022 Time: 18:47 Bed 16 Private MD: Diagnosis: Ileostomy status;Encounter for attention to ileostomy;Acute pharyngitis, unspecified Presentation: 06/22 18:59 Chief complaint: Patient states: Cough, throat pain for 6 days. Out of ileostomy bags. ll1 Coronavirus screen: Vaccine status: Patient reports receiving the 2nd dose of the covid vaccine. Client denies travel out of the [place] in the last 14 days. cough unrelated to allergies, fatigue, sore throat, Client presents with at least one sign or symptom that may indicate coronavirus-19. Standard/surgical mask placed on the client. Ebola Screen: Patient denies travel to an Ebola-affected area in the 21 days before illness onset. Initial Sepsis Screen: Does the patient meet any 2 criteria? HR > 90 bpm. No. Patient's initial sepsis screen is negative. Does the patient have a suspected source of infection? Yes: Productive cough/pneumonia. Risk Assessment: Do you want to hurt yourself or someone else? Patient reports no desire to harm self or others. Onset of symptoms was June 16, 2022. 18:59 Method Of Arrival: Ambulatory 1 18:59 Acuity: OCTAVIO 3 ll1 Triage Assessment: 19:01 General: Appears uncomfortable, Behavior is cooperative, appropriate for age. Pain: ll1 Denies pain. Respiratory: Reports cough that is. GI: out of ileostomy bags. Historical: - Allergies: 19:01 NKDA; ll1 - PMHx: 19:01 ileostomy; ll1 - PSHx: 19:01 Small bowel resection with ileostomy; ll1 - Immunization history:: Client reports having NOT received the Covid vaccine. - Social history:: Smoking status: Patient reports use of chewing tobacco. Screenin:02 Abuse screen: Denies threats or abuse. Denies injuries from another. Nutritional tp1 screening: No deficits noted. Tuberculosis screening: No symptoms or risk factors identified. Fall Risk None identified. Assessment: 20:30 General: Appears in no apparent distress. comfortable, Behavior is calm, cooperative. tp1 Neuro: Level of Consciousness is awake, alert, obeys commands, Oriented to person, place, time, situation. Cardiovascular: Patient's skin is warm and dry. 20:50 Pain: Complains of pain in throat Pain does not radiate. Pain currently is 9 out of 10 tp1 on a pain scale. Quality of pain is described as scratchy Is continuous. Respiratory: Airway is patent Respiratory effort is even, unlabored. GI: Abdomen is flat, non-distended, Patient currently denies diarrhea, nausea, vomiting. GI: Ileostomy site stoma is pink and moist, ostomy bag not in place. PT is covering site with paper towel. : No signs and/or symptoms were reported regarding the genitourinary system. EENT: No signs and/or symptoms were reported regarding the EENT system. Derm: Skin is pink, warm \T\ dry. Musculoskeletal: Circulation, motion, and sensation intact. 20:57 Reassessment: discharge pending ostomy bag replacement. tp1 21:18 Reassessment: ostomy bag applied. tp1 Vital Signs: 18:59 BP 112 / 71; Pulse 115; Resp 18; Temp 98.7; Pulse Ox 99% ; Weight 65.77 kg; Height 6 ll1 ft. 1 in. (185.42 cm); Pain 9/10; 18:59 Body Mass Index 19.13 (65.77 kg, 185.42 cm) ll1 ED Course: 18:47 Patient arrived in ED. as 18:59 Arm band placed on. ll1 19:01 Triage completed. ll1 20:11 Rashaun Jiménez MD is Attending Physician. [facility] 20:29 Radha Bach RN is Primary Nurse. tp1 20:30 Patient has correct armband on for positive identification. Bed in low position. Call tp1 light in reach. 20:45 Nathaniel Burdick MD is Referral Physician. diego 20:58 Flu Sent. tp1 20:58 SARS RAPID Sent. tp1 20:58 Strep Sent. tp1 21:03 No provider procedures requiring assistance completed. Patient did not have IV access tp1 during this emergency room visit. Administered Medications: 20:58 Drug: Zithromax (azithromycin) 500 mg Route: PO; tp1 21:32 Follow up: Response: No adverse reaction tp1 Medication: 21:02 VIS not applicable for this client. tp1 Outcome: 20:48 Discharge ordered by . diego 21:34 Discharged to home ambulatory. tp1 21:34 Condition: good 21:34 Discharge instructions given to patient, Instructed on discharge instructions, follow up and referral plans. medication usage, Demonstrated understanding of instructions, follow-up care, medications, Prescriptions given X 1. 21:34 Patient left the ED. tp1 Signatures: Rashaun Jiménez MD MD cha Martinez, Amelia as Lewis, Lynsay, RN RN ll1 Radha Bach RN RN tp1 Corrections: (The following items were deleted from the chart) 19:01 18:59 Pulse 115bpm; Resp 18bpm; Pulse Ox 99%; Temp 98.7F; 65.77 kg; Height 6 ft. 1 in.; ll1 BMI: 19.1; Pain 9/10; ll1
--- NOTE | 2022-06-22 20:48 | EDPHYS ---
Physician Documentation [facility] Name: Rico Mcneill Age: 52 yrs Sex: Male : 1970 Arrival Date: 06/22/2022 Time: 18:47 Bed 16 Private MD: ED Physician Rashaun Jiménez HPI: 06/22 20:38 This 52 yrs old Male presents to ER via Ambulatory with complaints of Cough, diego out of ileostomy bags. Historical: - Allergies: 19:01 NKDA; ll1 - PMHx: 19:01 ileostomy; ll1 - PSHx: 19:01 Small bowel resection with ileostomy; ll1 - Immunization history:: Client reports having NOT received the Covid vaccine. - Social history:: Smoking status: Patient reports use of chewing tobacco. ROS: 20:38 Constitutional: Negative for fever, chills, and weight loss, Eyes: Negative for injury, diego pain, redness, and discharge, Neck: Negative for injury, pain, and swelling, Cardiovascular: Negative for chest pain, palpitations, and edema, Respiratory: Negative for shortness of breath, cough, wheezing, and pleuritic chest pain, Abdomen/GI: Negative for abdominal pain, nausea, vomiting, diarrhea, and constipation, Back: Negative for injury and pain, : Negative for injury, bleeding, discharge, and swelling, MS/Extremity: Negative for injury and deformity, Skin: Negative for injury, rash, and discoloration, Neuro: Negative for headache, weakness, numbness, tingling, and seizure, Psych: Negative for depression, anxiety, suicide ideation, homicidal ideation, and hallucinations, Allergy/Immunology: Negative for hives, rash, and allergies, Endocrine: Negative for neck swelling, polydipsia, polyuria, polyphagia, and marked weight changes, Hematologic/Lymphatic: Negative for swollen nodes, abnormal bleeding, and unusual bruising. 20:38 ENT: Positive for sore throat. Exam: 20:38 Constitutional: This is a well developed, well nourished patient who is awake, alert, diego and in no acute distress. Head/Face: Normocephalic, atraumatic. Eyes: Pupils equal round and reactive to light, extra-ocular motions intact. Lids and lashes normal. Conjunctiva and sclera are non-icteric and not injected. Cornea within normal limits. Periorbital areas with no swelling, redness, or edema. Neck: Trachea midline, no thyromegaly or masses palpated, and no cervical lymphadenopathy. Supple, full range of motion without nuchal rigidity, or vertebral point tenderness. No Meningismus. Chest/axilla: Normal chest wall appearance and motion. Nontender with no deformity. No lesions are appreciated. Cardiovascular: Regular rate and rhythm with a normal S1 and S2. No gallops, murmurs, or rubs. Normal PMI, no JVD. No pulse deficits. Respiratory: Lungs have equal breath sounds bilaterally, clear to auscultation and percussion. No rales, rhonchi or wheezes noted. No increased work of breathing, no retractions or nasal flaring. Back: No spinal tenderness. No costovertebral tenderness. Full range of motion. Male : Normal genitalia with no discharge or lesions. Skin: Warm, dry with normal turgor. Normal color with no rashes, no lesions, and no evidence of cellulitis. MS/ Extremity: Pulses equal, no cyanosis. Neurovascular intact. Full, normal range of motion. Neuro: Awake and alert, GCS 15, oriented to person, place, time, and situation. Cranial nerves II-XII grossly intact. Motor strength 5/5 in all extremities. Sensory grossly intact. Cerebellar exam normal. Normal gait. Psych: Awake, alert, with orientation to person, place and time. Behavior, mood, and affect are within normal limits. 20:38 ENT: Posterior pharynx: erythema, that is mild, exudate, is not appreciated. Vital Signs: 18:59 BP 112 / 71; Pulse 115; Resp 18; Temp 98.7; Pulse Ox 99% ; Weight 65.77 kg; Height 6 ll1 ft. 1 in. (185.42 cm); Pain 9/10; 18:59 Body Mass Index 19.13 (65.77 kg, 185.42 cm) ll1 MDM: 20:11 Patient medically screened. diego 20:42 Differential diagnosis: cocksackie virus, echovirus infection, group A strep diego tonsillitis, influenza, laryngitis, pharyngitis, tonsillitis, upper respiratory infection, uvulitis. Data reviewed: vital signs, nurses notes, lab test result(s). Data interpreted: type copyist: rate is 99 beats/min, rhythm is regular. Counseling: I had a detailed discussion with the patient and/or guardian regarding: the historical points, exam findings, and any diagnostic results supporting the discharge/admit diagnosis, lab results, radiology results. 06/22 20:37 Order name: Strep [facility] 06/22 20:37 Order name: SARS RAPID [facility] 06/22 20:37 Order name: Flu [facility] 06/22 21:32 Order name: SARS-COV-2 Antigen Rapid [facility] [place] 06/22 21:34 Order name: Group A Streptococcus Rapid Sc [facility] [place] 06/22 20:37 Order name: Misc. Order: ileostomy bag; Complete Time: 21:18 diego Administered Medications: 20:58 Drug: Zithromax (azithromycin) 500 mg Route: PO; tp1 21:32 Follow up: Response: No adverse reaction tp1 Disposition Summary: 06/22/22 20:48 Discharge Ordered Location: Home diego Problem: new diego Symptoms: have improved diego Condition: Stable diego Diagnosis - Ileostomy status diego - Encounter for attention to ileostomy diego - Acute pharyngitis, unspecified diego Followup: diego - With: Private Physician - When: 2 - 3 days - Reason: Recheck today's complaints, Continuance of care, Re-evaluation by your physician Followup: diego - With: Nathaniel Burdick MD - When: 2 - 3 days - Reason: Recheck today's complaints, Re-evaluation by your physician Discharge Instructions: - Discharge Summary Sheet diego - Pharyngitis diego - Sore Throat diego - Pharyngitis, [place] diego - Ileostomy Home Guide [facility] - Ileostomy diego Forms: - Medication Reconciliation Form [facility] - Thank You Letter diego - Antibiotic Education diego - Prescription Opioid Use diego Prescriptions: - Zithromax 500 mg Oral Tablet - take 1 tablet by ORAL route once daily for 5 days; 5 tablet; Refills: 0, diego Product Selection Permitted Signatures: Dispatcher [employer] Rashaun Delarosa MD MD cha Lewis, Lynsay RN RN ll1 Radha Bach RN RN tp1
[2022-06-22] MEDS ORDERED: AZITHROMYCIN 250 MG TAB ONE (20:50)
[2022-06-22 21:31] LABS: SARS-CoV-2 Antigen Rapid Res Negative (Negative)
[2022-06-22 21:55] VITALS: BP 112/71; TEMP 98.7; O2SAT 99
== END 2022-06-22 21:34 | disposition home or self-care (01) ==
LOC: ER 18:44
DX: Z43.2 Encounter for attention to ileostomy (principal); J02.9 Acute pharyngitis, unspecified
CPT/HCPCS: 36415; 87070; 87081; 87804; 87811; 99283

== ENCOUNTER 2022-07-02 05:33 | Emergency (ER) | payer SELFPAY ==
--- NOTE | 2022-07-02 06:55 | ER ---
Nurse's Notes [facility] Name: Rico Mcneill Age: 52 yrs Sex: Male : 1970 Arrival Date: 07/02/2022 Time: 05:38 Bed 6 Private MD: Diagnosis: Colostomy maintenance Presentation: 07/02 05:50 Chief complaint: Patient states: "I'm not sick or nothing, I'm just here for a new ll3 bag". Coronavirus screen: Vaccine status: Patient reports receiving the 2nd dose of the covid vaccine. At this time, the client does not indicate any symptoms associated with coronavirus-19. Ebola Screen: No symptoms or risks identified at this time. Initial Sepsis Screen: Does the patient meet any 2 criteria? No. Patient's initial sepsis screen is negative. Does the patient have a suspected source of infection? No. Patient's initial sepsis screen is negative. Risk Assessment: Do you want to hurt yourself or someone else? Patient reports no desire to harm self or others. Onset of symptoms was July 02, 2022. 05:50 Method Of Arrival: Ambulatory ll3 05:50 Acuity: OCTAVIO 5 ll3 Triage Assessment: 05:52 General: Appears comfortable, Behavior is calm, cooperative. Pain: Denies pain. GI: ll3 States has no ileostomy bags. Derm: Skin is pink, warm \\T\\ dry. Historical: - Allergies: 05:52 NKDA; ll3 - PMHx: 05:52 ileostomy; ll3 - PSHx: 05:52 Small bowel resection with ileostomy; ll3 - Immunization history:: Client reports receiving the 2nd dose of the Covid vaccine. - Social history:: Smoking status: Patient reports use of chewing tobacco. Screenin:53 Abuse screen: Denies threats or abuse. Denies injuries from another. Nutritional ll3 screening: No deficits noted. Tuberculosis screening: No symptoms or risk factors identified. Fall Risk None identified. Assessment: 05:53 General: See triage assessment. ll3 06:17 Reassessment: Pt given colostomy bag, a sandwich, cup of coffee, and a bottle of water vc1 prior to discharge. Vital Signs: 05:50 BP 103 / 71; Pulse 88; Resp 16; Temp 98.1(O); Pulse Ox 100% on R/A; Weight 65.77 kg ll3 (R); Height 6 ft. 1 in. (185.42 cm) (R); 05:50 Body Mass Index 19.13 (65.77 kg, 185.42 cm) ll3 ED Course: 05:38 Patient arrived in ED. ja2 05:46 Nimisha Hicks MD is Attending Physician. sp3 05:52 Triage completed. ll3 05:52 Arm band placed on Patient placed in an exam room, on a stretcher, on pulse oximetry. ll3 05:53 Patient has correct armband on for positive identification. Bed in low position. Call ll3 light in reach. Side rails up X 1. 05:53 No provider procedures requiring assistance completed. Patient did not have IV access ll3 during this emergency room visit. 06:17 Alejandra Mack, RN is Primary Nurse. vc1 Administered Medications: No medications were administered Medication: 05:53 VIS not applicable for this client. ll3 Outcome: 05:50 Discharge ordered by . sp3 06:17 Discharged to home ambulatory. vc1 06:17 Condition: good 06:17 Discharge instructions given to patient, Instructed on discharge instructions, follow up and referral plans. Demonstrated understanding of instructions, follow-up care. 06:18 Patient left the ED. vc1 Signatures: Nimisha Hicks MD MD sp3 Pao Babcock Lynsea, RN RN ll3 Alejandra Mack, BRITTNY RN vc1
--- NOTE | 2022-07-02 06:55 | EDPHYS ---
Physician Documentation [facility] Name: Rico Mcneill Age: 52 yrs Sex: Male : 1970 Arrival Date: 07/02/2022 Time: 05:38 Bed 6 Private MD: ED Physician Nimisha Hicks HPI: 07/02 05:47 This 52 yrs old Male presents to ER via Unassigned with complaints of needs sp3 new colostomy bag. 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 There is no somatic pain or other medical complaint. Review of systems are negative for abdominal pain, nausea, vomiting, blood in stools, back pain, fever, or any other aspect of ROS at this time. She has absolutely no medical complaints other than needing new medical supplies.. Historical: - Allergies: 05:52 NKDA; ll3 - PMHx: 05:52 ileostomy; ll3 - PSHx: 05:52 Small bowel resection with ileostomy; ll3 - Immunization history:: Client reports receiving the 2nd dose of the Covid vaccine. - Social history:: Smoking status: Patient reports use of chewing tobacco. ROS: 05:48 Constitutional: Negative for fever, chills, and weight loss, ENT: Negative for injury, sp3 pain, and discharge, Neck: Negative for injury, pain, and swelling, Cardiovascular: Negative for chest pain, palpitations, and edema, Respiratory: Negative for shortness of breath, cough, wheezing, and pleuritic chest pain, MS/Extremity: Negative for injury and deformity, Skin: Negative for injury, rash, and discoloration. 05:48 All other systems are negative. Exam: 05:48 Constitutional: This is a well developed, well nourished patient who is awake, alert, sp3 and in no acute distress. Chest/axilla: Normal chest wall appearance and motion. Nontender with no deformity. No lesions are appreciated. Cardiovascular: Regular rate and rhythm with a normal S1 and S2. No gallops, murmurs, or rubs. Normal PMI, no JVD. No pulse deficits. Respiratory: Lungs have equal breath sounds bilaterally, clear to auscultation and percussion. No rales, rhonchi or wheezes noted. No increased work of breathing, no retractions or nasal flaring. Vital Signs: 05:50 BP 103 / 71; Pulse 88; Resp 16; Temp 98.1(O); Pulse Ox 100% on R/A; Weight 65.77 kg ll3 (R); Height 6 ft. 1 in. (185.42 cm) (R); 05:50 Body Mass Index 19.13 (65.77 kg, 185.42 cm) ll3 MDM: 05:46 Patient medically screened. sp3 05:49 Data reviewed: vital signs, nurses notes. ED course: Colostomy bag will be given to the sp3 patient. No medical diagnoses or other critical emergency exists at this time.. Administered Medications: No medications were administered Disposition Summary: 07/02/22 05:50 Discharge Ordered Location: Home sp3 Condition: Stable sp3 Diagnosis - Colostomy maintenance sp3 Followup: sp3 - With: Private Physician - When: Upon discharge from the Emergency Department - Reason: Continuance of care Discharge Instructions: - Discharge Summary Sheet sp3 - Colostomy Home Guide, Adult sp3 Forms: - Medication Reconciliation Form sp3 - Thank You Letter sp3 - Antibiotic Education sp3 - Prescription Opioid Use sp3 Signatures: Nimisha Hicks MD MD sp3 Demetris Klein RN RN 3
--- OUTSIDE RECORDS SUMMARY | 2022-07-02 07:11 | XMS REPORT | Continuity of Care Document ---
:1970 Author Organization [facility] t Address Pending sale to [facility] [place] [address] Support Name Relationship Address Phone UPDATE, [place] [address] [place], [place] [address] NONE, PER [place] [address] JOYCE MARION Unavailable [phone] NO, NAME SELF . [phone] [place] [address] NONE, NONE Unavailable [address] [place] [address] NONE, NONE Unavailable [address] [phone] [place] [address] NONE, OTHER Unavailable NO KNOWN ADDRESS [phone] [place] [address] NONE, OTHER Unavailable [address] [phone] [place] [address] NONE, OTHER SA [address] [facility] [place] [address] NONE, OTHER SA [address] [place] [place] [address] JOYCE LEIJA Unavailable UNK [phone] [place] [address] NONE, PERSON Unavailable [id number] [place] [address] NONE, NONE Unavailable [address] [place] [address] FLACO HOPE Unavailable [address] [facility] [phone] [place] [address] Care Team Providers Name Role Phone UNKNOWN, REFFERING Primary Care Physician Unavailable Coco Nova Attending Clinician Unavailable Mark Perea Attending Clinician Unavailable Steve Urias Attending Clinician Unavailable YESSI RAMOS Attending Clinician Unavailable NELSON GARCIA Attending Clinician Unavailable KENDRA CARDENAS Attending Clinician Unavailable Elisha CAPONE, Aryan Garrison Attending Clinician [phone] Marty CAPONE, Dee Dee Nelson Attending Clinician Shiela CAPONE, EduarebenezerZander Attending Clinician Pao Barton MD Attending Clinician Anya CAPONE, León Shaw Attending Clinician [phone] LEÓN EARL Attending Clinician Unavailable Teddy Carbajal [...] Clinician Lindsey Escobar, Steve Santana Attending Clinician [phone] KARIN BASSETT Attending Clinician Unavailable Bert [...] dness dness 7-14 [facility]: [facility] 00 [place] Altered Altered Disease Active [place] bowel bowel 5-29 Health eliminatio eliminatio 00:00: [...] [facility] prolapse prolapse 00:00: Medica l 00 [place] Disorder Disorder Disease Active Harri s of stoma of stoma 9-15 Health 00:00: 00 Dehydratio Dehydratio Disease Active H arris n n Health Encounter Encounter Disease Active Compa ris for ostomy for ostomy [facility] care care education education [place] (acute [...] 6- [facility] s 00:00: Health 00 [facility] No Known DA Active U 2020-08 [facility] Allergie 1-29 [facility] 00:00: d 00 Medical [place] No Known DA Active U [facility] Allergie 9-05 Clear s 00:00: Bhatt [facility] No Known DA Active U [facility] Allergie 9-05 Clear s 00:00: Bhatt 00 [facility] No Known DA Active U [facility] Allergie 7-03 Clear s 00:00: Bhatt [facility] No Known DA Active U [facility] Allergie 5-14 Clear s 00:00: Bhatt [facility] No Known DA Active U [facility] Allergie 7-07 [place] s 00:00: d 00 Medical [place] NO KNOWN Allergy Active [facility] ALLERGIE S [...] rris Health 00:00:00 00:00:00 alcohol (finding) History [facility] 2019-03-17 2019-03-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 [facility] Alcohol Comment 00:00:00 00:00:00 Medical C enter Tobacco use and 2017-04-14 2017-04-14 User of smokeless [facility] exposure 00:00:00 00:00:00 tobacco History [facility] Food 2017-04-14 2017-04-14 1 [facility] Worry 00:00:00 00:00:00 History [facility] Food 2017-04-14 2017-04-14 1 [facility] Scarcity 00:00:00 00:00:00 Sex [birth year] Maged [place] alth 00:00:00 00:00:00 Smoking Status Start Date Stop Date Source Never smoker [facility] Medications Ordered Filled Start Stop [...] intestinal ostomy loperamide 2021- No Altered 4mg Q.49988648 Take 2 [facility] (IMODIUM) 2 02-20 bowel [id number] capsules Health mg capsule 00:00: 23:59 elimination [...] intestinal ostomy loperamide 2021- No Altered 4mg Q.62703535 Take 2 [facility] (IMODIUM) 2 02-20- bowel [id number] capsules Health mg capsule 00:00: 23:59 elimination [...] intestinal ostomy loperamide 2021- No Altered 4mg Q.74493777 Take 2 [facility] (IMODIUM) 2 02-20 bowel [id number] capsules Health mg capsule 00:00: 23:59 elimination [...] intestinal ostomy loperamide 2021- No Altered 4mg Q.77626524 Take 2 [facility] (IMODIUM) 2 02-20 bowel [id number] capsules Health mg capsule 00:00: 23:59 elimination [...] intestinal ostomy loperamide 2021- No Altered 4mg Q.42450611 Take 2 [facility] (IMODIUM) 2 02-20 bowel [id number] capsules Health mg capsule 00:00: 23:59 elimination [...] intestinal ostomy loperamide 2021- No Altered 4mg Q.50837354 Take 2 [facility] (IMODIUM) 2 02-20 bowel [id number] capsules Health mg capsule 00:00: 23:59 elimination [...] intestinal ostomy loperamide 2021- No Altered 4mg Q.87919220 Take 2 [facility] (IMODIUM) 2 02-20 bowel [id number] capsules Health mg capsule 00:00: 23:59 elimination [...] intestinal ostomy loperamide 2021- No Altered 4mg Q.83925826 Take 2 [facility] (IMODIUM) 2 02-20 bowel [id number] capsules Health mg capsule 00:00: 23:59 elimination [...] intestinal ostomy loperamide 2021- No Altered 4mg Q.69669698 Take 2 [facility] (IMODIUM) 2 02-20 bowel [id number] capsules Health mg capsule 00:00: 23:59 elimination [...] intestinal ostomy loperamide 2021- No Altered 4mg Q.48184640 Take 2 [facility] (IMODIUM) 2 02-2030 bowel [id number] capsules Health mg capsule 00:00: 23:59 elimination [...] intestinal ostomy loperamide 2021- No Altered 4mg Q.17118535 Take 2 [facility] (IMODIUM) 2 02-2030 bowel [id number] capsules Health mg capsule 00:00: 23:59 elimination [...] intestinal ostomy loperamide 2021- No Altered 4mg Q.19141542 Take 2 [facility] (IMODIUM) 2 02-2030 bowel [id number] capsules Health mg capsule 00:00: 23:59 elimination [...] intestinal ostomy loperamide 2021- No Altered 4mg Q.03948039 Take 2 [facility] (IMODIUM) 2 02-20 0730 bowel [id number] capsules Health mg capsule 00:00: 23:59 elimination 3D by mouth 3 00 :00 due to times intestinal daily ostomy (before meals) for 30 days tamsulosin 2021- No Acute .4mg Take 1 Compa ris (FLOMAX) 02-20 0730 kidney capsule by He alth 0.4 mg [...] Lynne (METAMUCIL) 02-1130 bowel t} Packet by [facility] 6 gram PwPk 00:00: 00:00 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 psyllium 2021- No Altered 1{packe Take 1 [facility] (METAMUCIL) 02-1130 bowel t} Packet by [facility] 6 gram PwPk 00:00: 00:00 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 psyllium 2021- No Altered 1{packe Take 1 [facility] (METAMUCIL) 02-1130 bowel t} Packet by [facility] 6 gram PwPk 00:00: 00:00 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 psyllium 2021- No Altered 1{packe Take 1 [facility] (METAMUCIL) 02-1130 bowel t} Packet by [facility] 6 gram PwPk 00:00: 00:00 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 psyllium 2021- No Altered 1{packe Take 1 [facility] (METAMUCIL) 02-1130 bowel t} Packet by [facility] 6 gram PwPk 00:00: 00:00 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 psyllium 2021- No Altered 1{packe Take 1 [facility] (METAMUCIL) 02-1130 bowel t} Packet by [facility] 6 gram PwPk 00:00: 00:00 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 psyllium 2021- No Altered 1{packe Take 1 [facility] (METAMUCIL) 02-1130 bowel t} Packet by [facility] 6 gram PwPk 00:00: 00:00 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 psyllium 2021-0 2021- No Altered 1{packe Take 1 [facility] (METAMUCIL) 02-1130 bowel t} Packet by [facility] 6 gram PwPk 00:00: 00:00 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 ascorbic 2021-2021- No Altered 250mg QD Take 1 Momin rris acid, 5- 07-30 bowel tablet by [facility] vitamin C, 00:00: 23:59 elimination mouth 250 mg 00 :00 due to daily for tablet intestinal 60 days ostomy magnesium 2021-2021- No Altered 800mg Q.5D Take 2 H arris oxide 5- 07-30 bowel tablets by [facility] (MAG-OX) 00:00: 23:59 elimination mouth [...] H arris oxide 01-21-30 bowel tablets by [employer] (MAG-OX) 00:00: 23:59 elimination mouth 2 400 [...] arris oxide 5- 07-30 bowel tablets by [facility] (MAG-OX) 00:00: 23:59 elimination mouth [...] rris acid, -23 03-30 bowel tablet by [facility] vitamin C, 00:00: 23:59 elimination [...] Lynne n with 01-21-30 bowel tablet by [facility] folic acid 00:00: 23:59 elimination mouth (THERA) 400 00 :00 due to daily for mcg tablet intestinal 60 days ostomy ascorbic 2021-2021- No Altered 250mg QD Take 1 Momin rris acid, 01-21-30 bowel tablet by [facility] vitamin C, 00:00: 23:59 elimination mouth 250 mg 00 :00 due to daily for tablet intestinal 60 days ostomy magnesium 2021-0 2021- No Altered 800mg Q.5D Take 2 H arris oxide 5- 07-30 bowel tablets by [facility] (MAG-OX) 00:00: 23:59 elimination mouth [...] 250mg QD Take 1 Momin rris acid, 5-23 03-30 bowel tablet by [facility] vitamin C, 00:00: 23:59 elimination mouth 250 mg 00 :00 due to daily for tablet intestinal 60 days ostomy magnesium 2021-2021- No Altered 800mg Q.5D Take 2 H arris oxide 5-23 03-30 bowel tablets by [facility] (MAG-OX) 00:00: 23:59 elimination mouth [...] 250mg QD Take 1 Momin rris acid, 5-23 03-30 bowel tablet by Health vitamin C, 00:00: 23:59 elimination mouth 250 mg 00 :00 due to daily for tablet intestinal 60 days ostomy magnesium 2021-2021- No Altered 800mg Q.5D Take 2 H arris oxide 5- 07-30 bowel tablets by [facility] (MAG-OX) 00:00: 23:59 elimination mouth [...] H arris oxide 01-21 bowel tablets by [employer] (MAG-OX) 00:00: 23:59 elimination mouth 2 400 [...] days ostomy loperamide 2021- No Altered 4mg Q.82272680 Take 2 [facility] (IMODIUM) 2 01-21 bowel [id number] capsules Health mg capsule 00:00: 00:00 elimination [...] days ostomy loperamide 2021- No Altered 4mg Q.[id number] Take 2 [facility] (IMODIUM) 2 01-21 bowel [id number] capsules Health mg capsule 00:00: 00:00 elimination [...] days ostomy loperamide 2021- No Altered 4mg Q.27299255 Take 2 [facility] (IMODIUM) 2 01-21-30 bowel [id number] capsules Health mg capsule 00:00: 00:00 elimination [...] days ostomy loperamide 2021- No Altered 4mg Q.[id number] Take 2 [facility] (IMODIUM) 2 01-21 bowel [id number] capsules Health mg capsule 00:00: 00:00 elimination [...] days ostomy loperamide 2021- No Altered 4mg Q.00573616 Take 2 [facility] (IMODIUM) 2 01-2130 bowel [id number] capsules Health mg capsule 00:00: 00:00 elimination [...] 60 days ostomy loperamide No Altered 4mg Q.48052657 Take 2 [facility] (IMODIUM) 2 01-21 bowel [id number] capsules Health mg capsule 00:00: 00:00 elimination [...] days ostomy loperamide 2021- No Altered 4mg Q.75343533 Take 2 [facility] (IMODIUM) 2 01-21 bowel [id number] capsules Health mg capsule 00:00: 00:00 elimination [...] days ostomy loperamide 2021- No Altered 4mg Q.00622985 Take 2 [facility] (IMODIUM) 2 01-21 bowel [id number] capsules Health mg capsule 00:00: 00:00 elimination [...] days ostomy loperamide 2021- No Altered 4mg Q.23881888 Take 2 [facility] (IMODIUM) 2 01-21 bowel [id number] capsules Health mg capsule 00:00: 00:00 elimination [...] days ostomy loperamide 2021- No Altered 4mg Q.[id number] Take 2 [facility] (IMODIUM) 2 01-21 bowel [id number] capsules Health mg capsule 00:00: 00:00 elimination [...] days ostomy loperamide 2021- No Altered 4mg Q.49833337 Take 2 [facility] (IMODIUM) 2 01-21 bowel [id number] capsules Health mg capsule 00:00: 00:00 elimination [...] 60 days ostomy loperamide No Altered 4mg Q.49014626 Take 2 [facility] (IMODIUM) 2 01-21 bowel [id number] capsules Health mg capsule 00:00: 00:00 elimination [...] days ostomy loperamide 2021- No Altered 4mg Q.13132217 Take 2 [facility] (IMODIUM) 2 01-21 bowel [id number] capsules Health mg capsule 00:00: 00:00 elimination 3D by mouth 3 00 :00 due to times intestinal daily ostomy (before meals) for 30 days psyllium 2021- No Altered 1{packe Q.62179948 Take 1 [facility] (METAMUCIL) 01-21 bowel t} [id number] Packet by [employer] 6 gram PwPk 00:00: 00:00 elimination 3D mouth 3 00 :00 due to times intestinal daily ostomy (before meals) for 90 days psyllium 2021- No Altered 1{packe Q.60576621 Take 1 [facility] (METAMUCIL) 01-21 bowel t} [id number] Packet by [facility] 6 gram PwPk 00:00: 00:00 elimination 3D mouth 3 00 :00 due to times intestinal daily ostomy (before meals) for 90 days psyllium 2021- No Altered 1{packe Q.06031221 Take 1 [facility] (METAMUCIL) 01-21 bowel t} [id number] Packet by [facility] 6 gram PwPk 00:00: 00:00 elimination 3D mouth 3 00 :00 due to times intestinal daily ostomy (before meals) for 90 days psyllium 2021- No Altered 1{packe Q.74992574 Take 1 [facility] (METAMUCIL) 01-21 bowel t} [id number] Packet by [employer] 6 gram PwPk 00:00: 00:00 elimination 3D mouth 3 00 :00 due to times intestinal daily ostomy (before meals) for 90 days psyllium 2021- No Altered 1{packe Q.63296714 Take 1 [facility] (METAMUCIL) 01-21 bowel t} [id number] Packet by [facility] 6 gram PwPk 00:00: 00:00 elimination 3D mouth 3 00 :00 due to times intestinal daily ostomy (before meals) for 90 days psyllium 2021- No Altered 1{packe Q.62609732 Take 1 [facility] (METAMUCIL) 01-21 bowel t} [id number] Packet by [facility] 6 gram PwPk 00:00: 00:00 elimination 3D mouth 3 00 :00 due to times intestinal daily ostomy (before meals) for 90 days psyllium 2021- No Altered 1{packe Q.83335914 Take 1 [facility] (METAMUCIL) 01-21 bowel t} [id number] Packet by [facility] 6 gram PwPk 00:00: 00:00 elimination 3D mouth 3 00 :00 due to times intestinal daily ostomy (before meals) for 90 days psyllium 2021- No Altered 1{packe Q.[id number] Take 1 [facility] (METAMUCIL) 01-21 bowel t} [id number] Packet by [employer] 6 gram PwPk 00:00: 00:00 elimination 3D mouth 3 00 :00 due to times intestinal daily ostomy (before meals) for 90 days psyllium 2021- No Altered 1{packe Q.87639593 Take 1 [facility] (METAMUCIL) 01-21 bowel t} [id number] Packet by [employer] 6 gram PwPk 00:00: 00:00 elimination 3D mouth 3 00 :00 due to times intestinal daily ostomy (before meals) for 90 days psyllium 2021- No Altered 1{packe Q.[id number] Take 1 [facility] (METAMUCIL) 01-21 bowel t} [id number] Packet by [employer] 6 gram PwPk 00:00: 00:00 elimination 3D mouth 3 00 :00 due to times intestinal daily ostomy (before meals) for 90 days psyllium 2021- No Altered 1{packe Q.[id number] Take 1 [facility] (METAMUCIL) 01-21 bowel t} [id number] Packet by [employer] 6 gram PwPk 00:00: 00:00 elimination 3D mouth 3 00 :00 due to times intestinal daily ostomy (before meals) for 90 days psyllium 2021- No Altered 1{packe Q.[id number] Take 1 [facility] (METAMUCIL) 01-21 bowel t} [id number] Packet by [employer] 6 gram PwPk 00:00: 00:00 elimination 3D mouth 3 00 :00 due to times intestinal daily ostomy (before meals) for 90 days psyllium 2021- No Altered 1{packe Q.96978997 Take 1 [facility] (METAMUCIL) 01-21 bowel t} [id number] Packet by [employer] 6 gram PwPk 00:00: 00:00 elimination 3D mouth 3 00 :00 due to times intestinal daily ostomy (before meals) for 90 days tamsulosin 2021- No Benign .4mg QD Take 1 Momin rris (FLOMAX) 01-12 prostatic capsule by [facility] 0.4 mg 00:00: 00:00 hyperplasia mouth capsule [...] Momin rris (FLOMAX) 01-12 prostatic capsule by [facility] 0.4 mg 00:00: 00:00 hyperplasia mouth capsule [...] Momin rris (FLOMAX) 01-12 prostatic capsule by [facility] 0.4 mg 00:00: 00:00 hyperplasia mouth capsule 00 :00 , daily. unspecified Start on whether 01/12/2022. lower urinary tract symptoms present tamsulosin 2021-2021- No Benign .4mg QD Take 1 Momin rris (FLOMAX) 01-12 prostatic capsule by [facility] 0.4 mg 00:00: 00:00 hyperplasia mouth capsule 00 :00 , daily. unspecified Start on whether 01/12/2022. lower urinary tract symptoms present tamsulosin 2021-2021- No Benign .4mg QD Take 1 Momin rris (FLOMAX) 01-12 prostatic capsule by [facility] 0.4 mg 00:00: 00:00 hyperplasia mouth capsule 00 :00 , daily. unspecified Start on whether 01/12/2022. lower urinary tract symptoms present tamsulosin 2021-2021- No Benign .4mg QD Take 1 Momin rris (FLOMAX) 01-12 prostatic capsule by [facility] 0.4 mg 00:00: 00:00 hyperplasia mouth capsule 00 :00 , daily. unspecified Start on whether 01/12/2022. lower urinary tract symptoms present tamsulosin 2021-2021- No Benign .4mg QD Take 1 Momin rris (FLOMAX) 01-12 prostatic capsule by [facility] 0.4 mg 00:00: 00:00 hyperplasia mouth capsule [...] B-12, 1,000 00 daily mcg tablet cyanocobala 2022-0 Yes Malnutritio 1000ug QD Take 1 [facility] [...] oral liquid 00 :00 times daily nutritional 0 2021- No Malnutritio 1{packa Take 1 [facility] supplemment 5-21 06-21 n due to ge} Package by Health (BOOST) 00:00: 00:00 starvation mouth 3 oral liquid 00 :00 times daily nutritional 2021- No Malnutritio 1{packa Take 1 [facility] supplemment 5-21 06-21 n due to ge} Package by Health (BOOST) 00:00: 00:00 starvation mouth 3 oral liquid 00 :00 times daily nutritional 0 2021- No Malnutritio 1{packa Take 1 [facility] [...] (DAILY 04-14 abuse, in tablet by Health VITappiris) 00:00: 00:00 remission mouth tablet 00 :00 daily. 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 multivitami 2021- No Alcohol 1{tbl} QD Take 1 Lynne n (DAILY 04-14 abuse, in tablet by [employer] VITES) 00:00: 00:00 remission mouth tablet 00 :00 daily. 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 multivitami 2021- No Alcohol 1{tbl} QD Take 1 Lynne n (DAILY 04-14 abuse, in tablet by [employer] VITappiris) 00:00: 00:00 remission mouth tablet 00 :00 daily. thiamine, 2021- No Alcohol 100mg QD Take 1 H arris B-1, 100 mg 04-14 05-21 abuse, in tablet by Health tablet 00:00: 00:00 remission mouth 00 :00 daily. multivitami 2021- No Alcohol 1{tbl} QD Take 1 Lynne n (DAILY 8- 05-21 abuse, in tablet by Health VITES) 00:00: 00:00 remission mouth tablet 00 :00 daily. 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 multivitami 2021- No Alcohol 1{tbl} QD Take 1 [facility] n (DAILY 8 05-21 abuse, in tablet by [employer]) 00:00: 00:00 remission mouth tablet 00 :00 daily. thiamine, 2021- No Alcohol 100mg QD Take 1 H arris B-1, 100 mg 04-14 05-21 abuse, in tablet by Health tablet 00:00: 00:00 remission mouth 00 :00 daily. multivitami 2021- No Alcohol 1{tbl} QD Take 1 [facility] n (DAILY 8 05-21 abuse, in tablet by [employer] VIT[employer]iris) 00:00: 00:00 remission mouth tablet 00 :00 daily. thiamine, 2021- No Alcohol 100mg QD Take 1 H arris B-1, 100 mg 04-14 05-21 abuse, in tablet by Health tablet 00:00: 00:00 remission mouth 00 :00 daily. multivitami 2021- No Alcohol 1{tbl} QD Take 1 Lynne n (DAILY 8 05-21 abuse, in tablet by [employer] VIT[employer]iris) 00:00: 00:00 remission mouth tablet 00 :00 daily. 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 multivitami 2021- No Alcohol 1{tbl} QD Take 1 Lynne n (DAILY 8- 05-21 abuse, in tablet by [employer]IT[employer]) 00:00: 00:00 remission mouth tablet 00 :00 [...] n (DAILY 04-14- abuse, in tablet by [employer]IT[employer]is) 00:00: 00:00 remission mouth tablet 00 :00 daily. thiamine, 2021- No Alcohol 100mg QD Take 1 H arris B-1, 100 mg 04-14-21 abuse, in tablet by Health tablet 00:00: 00:00 remission mouth 00 :00 daily. multivitami 2021- No Alcohol 1{tbl} QD Take 1 Lynne n (DAILY 04-14-21 abuse, in tablet by [employer] VITES) 00:00: 00:00 remission mouth tablet 00 :00 daily. thiamine, 2021- No Alcohol 100mg QD Take 1 H arris B-1, 100 mg 04-14-21 abuse, in tablet by Health tablet 00:00: 00:00 remission mouth 00 :00 daily. multivitami 2021- No Alcohol 1{tbl} QD Take 1 Lynne n (DAILY 04-14 05-21 abuse, in tablet by [employer] VIT[employer]iris) 00:00: 00:00 remission mouth tablet 00 :00 daily. thiamine, 2021- No Alcohol 100mg QD Take 1 H arris B-1, 100 mg 04-14 05-21 abuse, in tablet by Health tablet 00:00: 00:00 remission mouth 00 :00 daily. multivitami 2021- No Alcohol 1{tbl} QD Take 1 Lynne n (DAILY 8 05-21 abuse, in tablet by [employer]) 00:00: 00:00 remission mouth tablet 00 :00 daily. Immunizations Ordered Immunization Filled Immunization Date Status Commen ts Source Name Name PPD 2017-04-14 Completed [facility] 00:00:00 PPD [...] kg Systolic blood 2022-03-13 15:33:00 94 mm[Hg] [facility] pressure Diastolic blood 2022-03-13 15:33:00 62 mm[Hg] [facility] pressure Heart rate 2022-03-13 15:33:00 109 /min [facility] Body temperature 2022-03-13 15:33:00 36.67 Tasia [facility] Respiratory rate 2022-03-13 15:33:00 20 /min [facility] Body height 2022-03-13 15:33:00 185.4 cm [facility] Body weight 2022-03-13 15:33:00 66.679 kg [facility] ealt BMI 2022-03-13 15:33:00 19.39 kg/m2 [facility] Oxygen saturation in 2022-03-13 15:33:00 100 /min [facility] Arterial blood by Pulse oximetry Systolic blood 2022-03-09 11:00:00 107 mm[Hg] [facility] Diastolic blood 2022-03-09 11:00:00 66 mm[Hg] [facility] Heart rate 2022-03-09 11:00:00 58 /min [facility] Body temperature 2022-03-09 11:00:00 36.22 Tasia [facility] Respiratory rate 2022-03-09 11:00:00 16 /min [facility] Oxygen saturation in 2022-03-09 11:00:00 100 /min [facility] Arterial blood by Medical Ce [facility]ter Pulse oximetry Body height 2022-03-06 12:05:00 185.4 cm [facility] Body weight 2022-03-06 12:05:00 65.772 kg [facility] BMI 2022-03-06 12:05:00 19.13 kg/m2 [facility] Procedures Procedure Date / Time Performing Clinician Source Performed BASIC METABOLIC PANEL 2022-03-07 05:51:00 Shiela [facility] HEPATIC FUNCTION PANEL 2022-03-07 05:51:00 Romie Kuo [facility] CBC W/PLT COUNT & AUTO 2022-03-07 05:51:00 Romie Kuo [facility] CBC W/PLT COUNT & AUTO 2022-03-07 05:51:00 Vidhi [facility] US RENAL COMPLETE 2022-03-06 18:23:00 ShielaRomie [facility] SARS-COV2/RT-PCR ([facility] & 2022-03-06 17:36[facility] [place] TSH/FREE T4 IF INDICATED 2022-03-06 14:18:[address] [facility] T4, FREE 2022-03-06 14:18:[address] [facility] ED ECG INTERPRETATION 2022-03-06 13:48:[address] [facility] XR CHEST 1 VIEW PORTABLE 2022-03-06 13:42:00 Aryan Tello [facility] / BEDSIDE [facility] B-TYPE NATRIURETIC FACTOR 2022-03-06 13:23:00 Aryan Tello [facility] (BNP) [facility] CBC W/PLT COUNT & AUTO 2022-03-06 13:23:[address] [facility] S t [facility] DIFFERENTIAL [facility] COMPREHENSIVE METABOLIC 2022-03-06 13:23:00 Aryan Tello [facility] PANEL [facility] HIGH SENSITIVITY TROPONIN 2022-03-06 13:23:00 Aryan Tello [facility] MAGNESIUM 2022-03-06 13:23:00 Aryan Tello [facility] PHOSPHORUS 2022-03-06 13:23:[address] [facility] LACTIC ACID, VENOUS 2022-03-06 13:23:[address] [facility] CREATINE KINASE (CK) 2022-03-06 13:23:[address] [facility] CBC W/PLT COUNT & AUTO 2022-03-06 13:23:00 Aryan [facility] DIFFERENTIAL [facility] ECG 12-LEAD 2022-03-06 12:12:56 Unknown, Hl7 [facility] ECG 12-LEAD 2022-03-06 12:12:56 Unknown, Hl7 [facility] ECG 12-LEAD 2022-03-06 12:12:56 Unknown, Hl7 [facility] EKG-SCANNED 2022-03-06 00:00:00 Provider[facility] CBC (WITHOUT 2022-02-20 05:10:00 Rufino Lazaro [facility] h DIFFERENTIAL) BASIC METABOLIC PANEL 2022-02-20 05:10:00 Rufino Lazaro [facility] 2022-02-20 05:10:00 TejasRufino Laz [facility] PHOSPHORUS 2022-02-20 05:10:00 Rufino Lazaro [facility] INFUSION PUMP 2022-02-19 19:03:50 Tejas Rufinoemigdio [facility] COMPREHENSIVE METABOLIC 2022-02-19 06:35:00 [facility] PANEL CBC/DIFF 2022-02-19 06:35:00 Kobe Blake alth PHOSPHORUS 2022-02-19 06:35:00 Kobe Blake alth CBC 2022-02-19 06:35:00 Kobe Blake alth URINALYSIS W/REFLEX TO 2022-02-19 00:34:00 Kobe Blake [facility] URINE CULTURE URINALYSIS 2022-02-19 00:34:00 [facility]LE[facility] 2022-02-19 00:34:00 [facility] KIT SARS-COV-2, FLU A/B, RSV 2022-02-18 19:00:00 [facility] CORONAVIRUS, COVID-19, 2022-02-18 19:00:00 Chadd Palacios [facility] OLENA XRAY CHEST 1 VIEW 2022-02-18 15:23:00 Roz Scales [facility] CONSULT CLINICAL CASE 2022-02-18 14:50:50 Roz Scales [facility] MANAGEMENT (RN/SW) CBC/DIFF 2022-02-18 14:16:00 [facility] MET[facility]OLIC PANEL 2022-02-18 14:16:00 Albab [facility] MAGNESIUM 2022-02-18 14:16:00 [facility] 2022-02-18 14:16:00 Susana Cooley [facility] h CREATINE KINASE (CK) 2022-02-18 14:16:00 [facility] 2022-02-18 14:16:00 AlbSusana [facility] MET[facility]OLIC PANEL 2022-02-11 03:34:00 [facility] 2022-02-11 03:34:00 Cuchapin, Teresa [facility] PHOSPHORUS 2022-02-11 03:34:00 [facility] (WITHOUT 2022-02-11 03:34:00 [facility] DIFFERENTIAL) CBC/DIFF 2022-02-10 03:39:00 [facility] MET[facility]OLIC PANEL 2022-02-10 03:39:00 Antonieta [facility] CBC 2022-02-10 03:39:00 [facility] THYROID STIMULATING 2022-02-10 03:39:00 [facility] HORMONE (TSH) FREE T4 2022-02-10 03:39:00 [facility] CBC/DIFF 2022-02-09 04:38:00 Meghan [facility] BASIC METABOLIC PANEL 2022-02-09 04:38:00 [facility] 2022-02-09 04:38:00 [facility] CORT[facility]OL, TOTAL 2022-02-08 11:37:00 Mari [facility] GLUCOSE POC 2022-02-08 08:07:00 [facility] CBC (WITHOUT 2022-02-08 04:00:00 [facility] DIFFERENTIAL) COMPREHENSIVE METABOLIC 2022-02-08 04:00:00 Mari Meier [facility] PANEL PHOSPHORUS 2022-02-08 04:00:00 [facility] MAGNESIUM 2022-02-08 04:00:00 [facility] PT/INR 2022-02-08 04:00:00 [facility] URINALYSIS W/REFLEX TO 2022-02-07 18:06:00 Areli Arciniega [facility] URINE CULTURE URINALYSIS 2022-02-07 18:06:00 Areli Arciniega [facility] URINE CULTURE COLLECTION 2022-02-07 18:06:00 Areli Arciniega [facility] KIT ELECTROLYTES, URINE 2022-02-07 18:06:00 Jyoti Carrillo [facility] OSMOLALITY, URINE 2022-02-07 18:06:00 Jyoti Carrillo ealt SARS-COV-2, FLU A/B, RSV 2022-02-07 18:05:00 Jyoti Carrillo [facility] CORONAVIRUS, COVID-19, 2022-02-07 18:05:00 Jyoti Carrillo [facility] OLENA NUTRITION CONSULT 2022-02-07 17:43:36 Mari Meier [facility] BASIC METABOLIC PANEL 2022-02-07 17:18:[address] [facility] LACTIC ACID 2022-02-07 14:04:00 Areli [...] 12 LEAD EKG 2022-01-21 15:46:10 Ori Goldberg [facility] h CBC/DIFF 2022-01-21 04:11:00 Steve Lucas [facility] MAGNESIUM 2022-01-21 04:11:00 [facility] PHOSPH[facility]US 2022-01-21 04:11:00 St[facility] BASIC METABOLIC PANEL 2022-01-21 04:11:00 Ori Goldberg [facility] CBC 2022-01-21 04:11:00 Noe [facility] CBC/DIFF 2022-01-20 04:37:00 LindseyNoe herrerah [facility] MAGNESIUM 2022-01-20 04:37:00 LindseyNoeh [facility] PHOSPHORUS 2022-01-20 04:37:00 Lindsey Steve [facility] BASIC METABOLIC PANEL 2022-01-20 04:37:00 [facility] Steve P [facility] CBC 2022-01-20 04:37:00 Lindsey Steve [facility] MAGNESIUM 2022-01-19 18:09:00 [facility] Steve [facility] PHOSPHORUS 2022-01-19 18:09:00 [facility] Steve [facility] BASIC METABOLIC PANEL 2022-01-19 18:09:00 [facility] Steve P [facility] CORTISOL, TOTAL 2022-01-19 18:09:00 [facility] URINALYSIS W/REFLEX TO 2022-01-19 17:22:[address] [facility] URINE CULTURE URINALYSIS 2022-01-19 17:22:00 Lindsey [facility] URINE CULTURE COLLECTION 2022-01-19 17:22:00 Noe Lucash P [facility] Health KIT COMPUTED TOMOGRAPHY 2022-01-19 13:29:00 [facility] ABDOMEN AND PELVIS WITHOUT CONTRAST CBC/DIFF 2022-01-19 04:44:00 Noe Lucash [facility] CBC 2022-01-19 04:44:00 LindseyNoe herrerah [facility] DIFFERENTIAL, MANUAL (NO 2022-01-19 04:44:00 Lindsey, Steve [facility] Health MORPHOLOGY)-[place] BASIC METABOLIC PANEL 2022-01-18 17:15:00 LindseySteve child [facility] CBC/DIFF 2022-01-18 04:46:00 Lindsey, Steve [facility] MAGNESIUM 2022-01-18 04:46:00 LindseyNoeh P [facility] PHOSPHORUS 2022-01-18 04:46:00 [facility] BASIC METABOLIC PANEL 2022-01-18 04:46:00 Ori Goldberg [facility] CBC 2022-01-18 04:46:00 Steve Lucas [facility] HIV AG/AB COMBO ROUTINE 2022-01-18 04:46:00 Karin Bassett [facility] SCREENING ENTERIC PATHOGENS NUCLEIC 2022-01-18 03:25:00 Karin Bassett [facility] ACID TEST BASIC METABOLIC PANEL 2022-01-18 00:29:00 Ori Goldberg [facility] BASIC METABOLIC PANEL 2022-01-17 17:07:00 LindseyNoeh [facility] BASIC METABOLIC PANEL 2022-01-17 13:15:00 [facility] CALPROTECTIN FECAL 2022-01-17 12:38:00 Steve Lucas FECAL LEUKOCYTES 2022-01-17 12:38:00 Steve Lucas a lt T-TRANSGLUTAMINASE IGA 2022-01-17 12:22:00 [facility] BASIC METABOLIC PANEL 2022-01-17 08:51:00 Lindsey [facility] BASIC METABOLIC PANEL 2022-01-17 04:47:00 [facility] CBC/DIFF 2022-01-17 04:47:00 Steve Lucas th MAGNESIUM 2022-01-17 04:47:00 Steve Lucas th PHOSPHORUS 2022-01-17 04:47:00 Steve Lucas [facility] CBC 2022-01-17 04:47:00 Steve Lucas [facility] BASIC METABOLIC PANEL 2022-01-17 00:08:00 LindseySteve [facility] 12 LEAD EKG 2022-01-16 21:23:25 Steve Lucas [facility] BASIC METABOLIC PANEL 2022-01-16 21:08:00 [facility] XRAY CHEST 2 VIEWS 2022-01-16 19:56:00 Steve Lucas ealtgera IP CONSULT TO PHYSICAL 2022-01-16 19:17:17 Lindsey [facility] THERAPY CONSULT CLINICAL CASE 2022-01-16 19:17:17 Steve [facility] MANAGEMENT (RN/SW) SEQUENTIAL COMPRESSION 2022-01-16 19:17:17 Steve [facility] PUMP SEQUENTIAL COMPRESSION 2022-01-16 19:17:17 LindseySteve is Health PUMP SODIUM, URINE, RANDOM 2022-01-16 16:00:00 Kevin Nieves [facility] CREATININE, URINE, RANDOM 2022-01-16 16:00:00 Kevin Nieves [facility] OSMOLALITY, URINE 2022-01-16 16:00:00 Kevin Nieves [facility] SARS-COV-2, FLU A/B, RSV 2022-01-16 15:20:00 Kevin Nieves [facility] CORONAVIRUS, COVID-19, 2022-01-16 15:20:00 Kevin Nieves [facility] OLENA FOLIC ACID 2022-01-16 14:13:00 Kevin Nieves [facility] CREATININE POC 2022-01-16 13:55:00 Raymon Martin BMP POC 2022-01-16 13:46:00 Raymon Martin CBC/DIFF 2022-01-16 12:12:00 Raymon Martin CBC 2022-01-16 12:12:00 Raymon Martin BASIC METABOLIC PANEL 2022-01-16 12:11:00 Sadiq Vargas is Health MAGNESIUM 2022-01-16 12:11:00 Sadiq Vargas [facility] lt VITAMIN B12 2022-01-16 12:11:00 Kevin Nieves [facility] OSMOLALITY,SERUM 2022-01-16 12:11:00 Kevin Nieves [facility] INFUSION PUMP 2022-01-11 09:21:05 Helene Ring [facility] GLUCOSE POC 2022-01-11 07:54:00 Helene Ring [facility] BASIC METABOLIC PANEL 2022-01-11 04:07:00 Merissa [facility] MAGNESIUM 2022-01-11 04:07:00 Merissa Richards Healt [facility] PHOSPHORUS 2022-01-11 04:07:00 Brodie Richardsa [facility] CBC/DIFF 2022-01-11 04:06:00 Mer[facility] IRON PROFILE 2022-01-11 04:06:00 Mer[facility] FOLIC ACID 2022-01-11 04:06:00 Brodie Richardsa Felicita [facility] CBC 2022-01-11 04:06:00 Brodie Richardsa Felicit[facility] GLUCOSE POC 2022-01-10 18:16:00 [facility] URINALYSIS 2022-01-10 16:10:00 [facility] 2022-01-10 16:10:00 Merissa [facility] SARS-COV-2, FLU A/B, RSV 2022-01-10 15:54:00 Merissa Richards [facility] CORONAVIRUS, COVID-19, 2022-01-10 15:54:00 Antoine Hester [facility] OLENA BASIC METABOLIC PANEL 2022-01-10 15:54:00 Merissa Richards [facility] VITAMIN B12 2022-01-10 15:54:00 [facility] VBG POC 2022-01-10 11:14:00 [facility] CBC/DIFF 2022-01-10 11:13:00 [facility] BASIC METABOLIC PANEL 2022-01-10 11:13:00 Antoine Hester [facility] LACTIC ACID 2022-01-10 11:13:00 [facility] CBC 2022-01-10 11:13:00 Anto[facility] LIVER PROFILE 2022-01-10 11:13:00 Mer[facility] Richards [facility] CK, TOTAL 2022-01-10 11:13:00 Merissa [facility] FERRITIN 2022-01-10 11:13:00 [facility] CREATINE KINASE MB (CKMB) 2022-01-10 11:13:00 Merissa Richards [facility] XRAY CHEST 2 VIEWS 2022-01-08 21:50:14 SebastianRandaTanja K [facility] CBC/DIFF 2022-01-08 21:27:00 SebastianTanja [facility] BASIC METABOLIC PANEL 2022-01-08 21:27:[address] [facility] LIVER PROFILE 2022-01-08 21:27:00 Randa Sebastianandra Watson [facility] CK, TOTAL 2022-01-08 21:27:00 Sebastian Tanja Watson [facility] TROPONIN I 2022-01-08 21:27:00 SebastianTanja segal [facility] CBC 2022-01-08 21:27:00 SebastianRandaTanja Walter [facility] CREATINE KINASE MB (CKMB) 2022-01-08 21:27:00 SebastianRanda segalTanja K [facility] 12 LEAD EKG 2022-01-08 20:59:56 SebastianRandaTanja Walter [facility] [id number] 2020-01-09 00:00:00 [email or web address] [facility] Plan of Care Planned Activity Planned Date Details Comments Source Future Scheduled 2029-03-23 Screening for malignant [facility] Test 00:00:00 neoplasm of colon [facility] (procedure) [code = 137931368] Future Scheduled 2029-03-23 Screening for malignant [facility] Test 00:00:00 neoplasm of colon [facility] (procedure) [code = 693888124] Future Scheduled 2029-03-23 Screening for malignant [facility] Test 00:00:00 neoplasm of colon [facility] (procedure) [code = 453213823] Future Scheduled 2029-03-23 Screening for malignant [facility] Test 00:00:00 neoplasm of colon [facility] (procedure) [code = 484235483] Future Scheduled 2029-03-23 Screening for malignant [facility] Test 00:00:00 neoplasm of colon [facility] (procedure) [code = 559965721] Future Scheduled 2029-03-23 Screening for malignant [facility] Test 00:00:00 neoplasm of colon [facility] (procedure) [code = 915040656] Future Scheduled 2029-03-23 Screening for malignant [facility] Test 00:00:00 neoplasm of colon [facility] (procedure) [code = 464471033] Future Scheduled 2029-03-23 Screening for malignant [facility] Test 00:00:00 neoplasm of colon [facility] (procedure) [code = 870955984] Future Scheduled 2029-03-23 Screening for malignant [facility] Test 00:00:00 neoplasm of colon [facility] (procedure) [code = 209467245] Future Scheduled 2029-03-23 Screening for malignant [facility] Test 00:00:00 neoplasm of colon [facility] (procedure) [code = 000525484] Future Scheduled 2029-03-23 Screening for malignant [facility] Test 00:00:00 neoplasm of colon [facility] (procedure) [code = 572635614] Future Scheduled 2029-03-23 Screening for malignant [facility] Test 00:00:00 neoplasm of colon [facility] (procedure) [code = 757856822] Future Scheduled 2029-03-23 Screening for malignant [facility] Test 00:00:00 neoplasm of colon [facility] (procedure) [code = 284791626] Future Scheduled 2029-03-23 Screening for malignant [facility] Test 00:00:00 neoplasm of colon [facility] (procedure) [code = 489162291] Future Scheduled 2029-03-23 Screening for malignant [facility] Test 00:00:00 neoplasm of colon [facility] Ce [facility] (procedure) [code = 718723353] Future Scheduled 2029-03-23 Screening for malignant [facility] Test 00:00:00 neoplasm of colon [facility] (procedure) [code = 088890726] Future Scheduled 2029-03-23 Screening for malignant [facility] Test 00:00:00 neoplasm of colon [facility] (procedure) [code = 854584671] Future Scheduled 2029-03-23 Screening for malignant [facility] Test 00:00:00 neoplasm of colon [facility] (procedure) [code = 678303939] Future Scheduled 2029-03-23 Screening for malignant [facility] Test 00:00:00 neoplasm of colon [facility] (procedure) [code = 201486326] Future Scheduled 2029-03-23 Screening for malignant [facility] Test 00:00:00 neoplasm of colon [facility] (procedure) [code = 629850327] Future Scheduled 2029-03-23 Screening for malignant [facility] Test 00:00:00 neoplasm of colon Medical Ce [facility] (procedure) [code = 131749635] Future Scheduled 2029-03-23 Screening for malignant [facility] Test 00:00:00 neoplasm of colon [facility] Ce [facility] (procedure) [code = 589518621] Future Scheduled 2029-03-23 Screening for malignant [facility] 00:00:00 neoplasm of colon [facility] (procedure) [code = 198537322] Future Scheduled 2029-03-23 Screening for malignant [facility] 00:00:00 neoplasm of colon [facility] Ce [facility] (procedure) [code = 289455788] Future Scheduled 2029-03-23 Screening for malignant [facility] 00:00:00 neoplasm of colon [facility] Ce [facility] (procedure) [code = 918395990] Future Scheduled 2029-03-23 Screening for malignant [facility] 00:00:00 neoplasm of colon [facility] (procedure) [code = 838016416] Future Scheduled 2029-03-23 Screening for malignant [facility] 00:00:00 neoplasm of colon [facility] (procedure) [code = 848680119] Future Scheduled 2022-05-24 IMM Influenza Seasonal H [...] 00:00:00 neoplasm of colon (procedure) [code = 437124276] Future Scheduled 2020-02-14 [facility] 00:00:00 neoplasm of colon (procedure) [code = 935277119] Future Scheduled 2020-02-14 Screening [facility] 00:00:00 neoplasm of colon (procedure) [code = 574449463] Future Scheduled 2020-02-14 Screening for malignant [facility] 00:00:00 neoplasm of colon (procedure) [code = 469628546] Future Scheduled 2020-02-14 Screening for malignant [facility] 00:00:00 neoplasm of colon (procedure) [code = 061938899] Future Scheduled 2020-02-14 Screening for malignant [facility] 00:00:00 neoplasm of colon (procedure) [code = 258466219] Future Scheduled 2020-02-14 Screening for malignant [facility] 00:00:00 neoplasm of colon (procedure) [code = 200605636] Future Scheduled 2020-02-14 Screening for malignant [facility] 00:00:00 neoplasm of colon (procedure) [code = 498035702] Future Scheduled 2020-02-14 Screening for malignant [facility] 00:00:00 neoplasm of colon (procedure) [code = 165842454] Future Scheduled 2020-02-14 Screening for malignant [facility] 00:00:00 neoplasm of colon (procedure) [code = 491861760] Future Scheduled 2020-02-14 Screening for malignant [facility] 00:00:00 neoplasm of colon (procedure) [code = 678935733] Future Scheduled 2020-02-14 Screening for malignant [facility] 00:00:00 neoplasm of colon (procedure) [code = 701788436] Future Scheduled 2020-02-14 SHINGLES VACCINES ([address] [facility] 00:00:00 2) [code = SHINGLES [facility] Center VACCINES (1 of 2)] Future Scheduled 2020-02-14 Screening for malignant [facility] 00:00:00 neoplasm of colon (procedure) [code = 194335228] Future Scheduled 2020-02-14 SHINGLES VACCINES (1 of [...] [facility] 00:00:00 [code = 82403458] Medical Ce nter Future Scheduled 2005 Lipid panel (procedure) [facility] 00:00:00 [code = 80975677] Medical Ce nter Future Scheduled 2005 Lipid panel (procedure) [facility] 00:00:00 [code = 62540962] Medical Ce nter Future Scheduled 2005 Lipid panel (procedure) [facility] 00:00:00 [code = 78659890] Medical Ce nter Future Scheduled 2005 Lipid panel (procedure) [facility] 00:00:00 [code = 27778701] Medical Ce nter Future Scheduled 2005 Lipid panel (procedure) [facility] 00:00:00 [code = 10423784] Medical Ce nter Future Scheduled 2005 Lipid panel (procedure) [facility] 00:00:00 [code = 84462769] Medical Ce nter Future Scheduled 2005 Lipid panel (procedure) [facility] 00:00:00 [code = 79521964] Medical Ce nter Future Scheduled 2005 Lipid panel (procedure) [facility] 00:00:00 [code = 26554123] Medical Ce nter Future Scheduled 2005 Lipid panel (procedure) [facility] 00:00:00 [code = 72694181] Medical Ce nter Future Scheduled 2005 Lipid panel (procedure) [facility] 00:00:00 [code = 61149820] Medical Ce nter Future Scheduled 2005 Lipid panel (procedure) [facility] 00:00:00 [code = 83399155] Medical Ce nter Future Scheduled 2005 Lipid panel (procedure) [facility] 00:00:00 [code = 25699084] Medical Ce nter Future Scheduled 2005 Lipid panel (procedure) [facility] 00:00:00 [code = 22355142] Medical Ce nter Future Scheduled 1989 DTAP/TDAP/TD [...] [facility] 00:[facility]:00 [code = CT Colonography [facility] (combo)] Future Scheduled 1970 Screening for malignant [facility] 00:00:00 neoplasm of colon Medical Ce [facility]ter (procedure) [code = 215546135] Future Scheduled 1970 Screening for malignant [facility] 00:00:00 neoplasm of colon [facility] Ce [facility] (procedure) [code = 486978407] Future Scheduled 1970 Sigmoidoscopy [code [facility] Cent[facility] Future Scheduled 1970 Screening for malignant [facility] 00:00:00 neoplasm of colon Medical Ce [facility] (procedure) [code = 907885608] Future Scheduled 1970 Screening for malignant [facility] 00:00:00 neoplasm of colon Medical Ce [facility] (procedure) [code = 652797065] Future Scheduled 1970 Sigmoidoscopy [code [facility] Cent[facility] Future Scheduled 1970 CT Colonography (combo) [facility] 00:00:00 [code = CT [facility] ([facility])] Future Scheduled 1970 Screening for malignant [facility] 00:00:00 neoplasm of colon Medical Ce [facility] (procedure) [code = 508666830] Future Scheduled 1970 Screening for malignant [facility] 00:00:00 neoplasm of colon [facility] Ce [facility] (procedure) [code = 116920899] Future Scheduled 1970 Sigmoidoscopy [facility]code [facility] S[facility]oscopy] [facility] Cent[facility] Future Scheduled 1970 CT Colonography (combo) [facility] 00:00:00 [code = CT [facility] ([facility])] Future Scheduled 1970 Screening for malignant [facility] 00:00:00 neoplasm of colon [facility] (procedure) [code = 181564266] Future Scheduled 1970 Screening for malignant [facility] 00:00:00 neoplasm of colon [facility] Ce [facility] (procedure) [code = 221634776] Future Scheduled 1970 Sigmoidoscopy [code = [facility] S[facility]oscopy] [facility] Cent[facility] Future Scheduled 1970 CT Colonography (combo) [facility] 00:00:00 [code = CT [facility] ([facility])] Future Scheduled 1970 Screening for malignant [facility] 00:00:00 neoplasm of colon Medical Ce [facility] (procedure) [code = 962506809] Future Scheduled 1970 Screening for malignant [facility] 00:00:00 neoplasm of colon [facility] (procedure) [code = 105410554] Future Scheduled 1970 Sigmoidoscopy [facility]code [facility] S[facility]oscopy] [facility] Cent[facility] Future Scheduled 1970 CT Colonography (combo) [facility] 00:00:00 [code = CT [facility] (combo)] Future Scheduled 1970 Screening for malignant [facility] 00:00:00 neoplasm of colon Medical Ce [facility] (procedure) [code = 721695161] Future Scheduled 1970 Screening for malignant [facility] 00:00:00 neoplasm of colon [facility] Ce [facility] (procedure) [code = 220204988] Future Scheduled 1970 Sigmoidoscopy [facility]code [facility] S[facility]oscopy] [facility] Cent[facility] Future Scheduled 1970 CT Colonography (combo) [facility] 00:00:00 [code = CT [facility] (combo)] Future Scheduled 1970 Screening for malignant [facility] 00:00:00 neoplasm of colon Medical Ce [facility] (procedure) [code = 546785867] Future Scheduled 1970 Screening for malignant [facility] 00:00:00 neoplasm of colon Medical Ce [facility]ter (procedure) [code = 799732502] Future Scheduled 1970 Sigmoidoscopy [facility]code [facility] S[facility]] [facility] Cent[facility] r Future Scheduled 1970 CT Colonography (combo) [facility] 00:00:00 [code = CT Colonography [facility] (combo)] Future Scheduled 1970 Screening for malignant [facility] 00:00:00 neoplasm of colon Medical Ce [facility]ter (procedure) [code = 922789171] Future Scheduled 1970 Screening for malignant [facility] 00:00:00 neoplasm of colon Medical Ce [facility] (procedure) [code = 715996713] Future Scheduled 1970 Sigmoidoscopy [facility]code [facility] S[facility]] Medical Cent[facility] r Future Scheduled 1970 CT Colonography (combo) [facility] 00:00:00 [code = CT [facility]ography [facility] (combo)] Future Scheduled 1970 Screening for malignant [facility] 00:00:00 neoplasm of colon Medical Ce [facility]ter (procedure) [code = 271552257] Future Scheduled 1970 Screening for malignant [facility] 00:00:00 neoplasm of colon Medical Ce nter (procedure) [code = 162240738] Future Scheduled 1970 Sigmoidoscopy [facility]code = [facility]] Medical Cente r Future Scheduled 1970 CT Colonography (combo) [facility] 00:00:00 [code = CT Colonography [facility] (combo)] Future Scheduled 1970 Screening for malignant [facility] 00:00:00 neoplasm of colon Medical Ce nter (procedure) [code = 225720269] Future Scheduled 1970 Screening for malignant [facility] 00:00:00 neoplasm of colon Medical Ce nter (procedure) [code = 291056125] Future Scheduled 1970 Sigmoidoscopy [facility]code [facility] Sigm[facility]oscopy] Medical Cente r Future Scheduled 1970 CT Colonography (combo) [facility] 00:00:00 [code = CT Colonography [facility] (combo)] Future Scheduled 1970 Screening for malignant [facility] 00:00:00 neoplasm of colon Medical Ce nter (procedure) [code = 708286434] Future Scheduled 1970 Screening for malignant [facility] 00:00:00 neoplasm of colon Medical Ce nter (procedure) [code = 454999396] Future Scheduled 1970 Sigmoidoscopy [facility]code = [facility] S[facility]oscopy] Medical Cente r Future Scheduled 1970 CT Colonography (combo) [facility] 00:00:00 [code = CT Colonography [facility] (combo)] Future Scheduled 1970 Screening for malignant [facility] 00:00:00 neoplasm of colon Medical Ce nter (procedure) [code = 920375301] Future Scheduled 1970 Screening for malignant [facility] 00:00:00 neoplasm of colon Medical Ce nter (procedure) [code = 432448019] Future Scheduled 1970 Sigmoidoscopy [code = [facility] 00:[facility] Sigmoidoscopy] Medical Cente r Future Scheduled 1970 CT Colonography (combo) [facility] 00:00:00 [code = CT Colonography [facility] (combo)] Future Scheduled 1970 Screening for malignant [facility] 00:00:00 neoplasm of colon Medical Ce nter (procedure) [code = 967448414] Future Scheduled 1970 Screening for malignant [facility] 00:00:00 neoplasm of colon Medical Ce nter (procedure) [code = 021544954] Future Scheduled 1970 Sigmoidoscopy [code [facility] Sigmoidoscopy] Medical Seda malik Future Scheduled 1970 CT Colonography (combo) [facility] 00:00:00 [code = CT Colonography [facility] (combo)] Encounters Start End Encounter Admission Attending Care Care Encounter Source Date/Time Date/Time Type Type Clinicians Facility Department ID 2020-02-23 Inpatient HCAPM LENNY [id number] [facility] 18:42:00 89 [facility] [place] 2020-02-17 Inpatient EM Avtar, HCAPM MAS [id number] [facility] 00:22:00 Oladipo 75 [facility] [place] 2020-01-05 Inpatient UR Eliazar, HCAPM MEDI.01 [id number] [facility] 20:23:00 Mark 40 [facility] 2019-12-13 Inpatient HCAMN JULIA [id number] [facility] 17:52:00 47 [facility] 2022-03-29 2022-03-29 Emergency EM White, HCACL AERS [id number] [facility] 14:26:00 16:45:00 Steve 28 Psychiatric 2022-03-29 2022-03-29 Emergency EM White, HCACL HC[facility]L [id number] [facility] 14:26:00 16:45:00 Steve [id number] Psychiatric 2022-03-25 2022-03-26 Inpatient E RICHARD [facility] MED [id number] BL 13:38:00 10:16:00 , YESSI 2022-03-15 2022-03-18 Emergency E RADHA [facility] MED [id number] [facility] 13:36:00 18:59:00 NELSON 2022-03-13 2022-03-13 Emergency [facility] [id number] Lynne 15:33:00 20:25:00 [facility] 2022-03-13 2022-03-13 Emergency [facility] [id number] [place] 15:33:00 20:25:00 [facility] 2022-03-13 2022-03-13 [facility] [id number] [place] 00:00:00 00:00:00 [facility] 2022-03-06 2022-03-09 Hospital ER Aryan [facility] [id number] 12:16:00 12:55:00 Encounter Dee Dee Montalvo Fang-Ying M edical Heinen, [facility] 2022-03-06 2022-03-09 Inpatient ER LEÓN EARL [facility] Emergency 20 [id number] SLE 12:16:00 12:55:00 2022-03-06 2022-03-09 [facility] [id number] 12:16:00 12:55:00 Encounter Dee Dee Montalvo Fang-Ying M edical Heinen, [facility] 2022-03-06 2022-03-06 Outpatient [facility] [id number] [facility] 00:00:00 23:59:00 Albert e 2022-03-06 2022-03-[address] [facility] [id number] 00:00:00 00:00:00 Only [facility] 2022-03-06 2022-03-06 Travel [facility] [id number] [facility] 00:[facility]00 00:00:00 [facility] 2022-03-06 2022-03-[address] [facility] [id number] 00:00:00 00:00:00 Only [facility] 2022-03-06 2022-03-06 Travel [facility] [id number] [facility] 00:00:00 00:00:00 [facility] 2022-02-18 2022-02-20 Emergency Teddy Carbajal [facility] [id number] [place] 13:58:00 11:55:00 Bernabe Calvert Ashish D Cavazos, Roberto H 2022-02-18 2022-02-20 Emergency Teddy Carbajal [facility] [id number] [place] 13:58:00 11:55:00 Calvert, [facility] BlakeKobe waldron 2022-02-18 2022-02-18 Emergency STEVE, [facility] [id number] [place] 15:19:05 15:23:18 [facility] 2022-02-18 2022-02-18 Outpatient 1 [facility] [id number] [place] 13:58:00 13:58:00 [facility] 2022-02-18 2022-02-18 Outpatient DENIZ [facility] [id number] [place] 00:00:00 00:00:00 , OSCAR Daniels 2022-02-07 2022-02-11 [facility] [id number] [place] 13:40:00 13:22:00 Encounter [facility] 2022-02-07 2022-02-11 [facility] [id number] [place] 13:40:00 13:22:00 Encounter Antonieta [facility] 2022-02-07 2022-02-07 Outpatient 1 MEGHAN ISLAS [facility] [id number] [place] 13:40:00 13:40:00 [facility] 2022-01-30 2022-01-30 Emergency SEAN Pacheco [facility] [id number] [facility] 17:02:00 18:29:00 Dwain 53 [facility] 2022-01-30 2022-01-30 Emergency [facility] [id number] [facility] 17:02:00 18:29:00 Dwain [id number] [facility] 2022-01-22 2022-01-22 Emergency [facility] [id number] [place] 17:24:00 20:39:00 [facility] 2022-01-22 2022-01-22 Emergency [facility] [id number] [place] 17:24:00 20:39:00 [facility] 2022-01-16 2022-01-21 Emergency Raymon Martin [facility] [id number] [place] 11:04:00 18:08:00 [facility] 2022-01-16 2022-01-21 Emergency Raymon Martin [facility] [id number] [place] 11:04:00 18:08:00 Karin Bassett [facility] Darrion Loera [facility] 2022-01-19 2022-01-19 Outpatient [facility] [id number] [place] 12:34:08 13:29:31 [facility] 2022-01-16 2022-01-16 Outpatient [facility] [id number] [place] 19:42:28 20:01:28 [facility] 2022-01-16 2022-01-16 Outpatient 1 BASSETT, [facility] [id number] [place] 11:04:00 11:04:00 KARIN Daniels 2022-01-10 2022-01-11 Emergency Emiliajohn [facility] [id number] [place] 10:58:00 11:20:00 María Elena Helene [facility] 2022-01-10 2022-01-11 Emergency Brianna [facility] [id number] [place] 10:58:00 11:20:00 [facility]ía [facility] 2022-01-10 2022-01-10 Outpatient 1 [facility] [id number] [place] 10:58:00 10:58:00 [facility] 2022-01-08 2022-01-09 Emergency [facility] [id number] [place] 17:57:00 02:50:00 [facility] 2022-01-08 2022-01-09 Emergency [facility] [id number] [place] 17:57:00 02:50:00 [facility] 2022-01-08 2022-01-08 Emergency [facility] [id number] [place] 21:40:34 21:50:19 [facility] 2021-09-23 2021-09-23 Emergency SEAN Levi Raffaele [facility] AERS [id number] [facility] 19:35:00 21:10:00 74 Psychiatric 2021-09-13 2021-09-13 Emergency Raffaele Pitts [facility] AERS [id number] [facility] 14:57:00 16:37:00 06 Psychiatric 2021-07-27 2021-07-27 Emergency EM Koussayer, HCAMN JULIA [id number] [facility] 10:15:00 12:36:00 Tarek 17 [facility] 2021-07-22 2021-07-22 Emergency EM Marcelina, HCACL AERS [id number] [facility] 04:25:00 08:20:00 Tarrell 74 Psychiatric 2021-06-27 2021-06-27 Emergency EM White, HCACL AERS [id number] [facility] 15:31:00 17:37:00 Steve 17 Psychiatric 2021-04-28 2021-05-01 Inpatient EM Aisha, HCACL [facility] [id number] [facility] 21:05:00 14:18:00 Marcello 03 [facility] 2020-02-24 2020-02-24 Outpatient Eliazar HCACL LABO [id number] [facility] 07:51:00 07:51:00 Mark 96 Psychiatric 2020-02-18 2020-02-18 Outpatient Avtar, HCACL LABO [id number] [facility] 00:26:00 00:26:00 Oladipo 05 Psychiatric 2020-01-05 2020-01-05 Outpatient Eliazar HCACL [facility] [id number] [facility] 23:52:00 23:52:00 Mark 24 Psychiatric 2017-11-02 2017-11-02 Emergency E [facility] MED [id number] [facility] 08:33:00 08:33:00 [facility] 2017-08-05 2017-08-05 Outpatient [facility] [id number] [place] 00:00:00 00:00:00 [facility] 2017-07-28 2017-07-28 Outpatient [facility] [id number] [place] 00:00:00 00:00:00 [facility] 2017-06-24 2017-06-24 Outpatient [facility] [id number] [place] 00:00:00 00:00:00 [facility] 2017-06-22 2017-06-22 Emergency [facility] [id number] [place] 21:37:29 21:37:29 [facility] 2017-06-22 2017-06-22 Emergency [facility] [id number] [place] 21:06:00 21:06:00 Health 2017-06-22 2017-06-22 Outpatient [facility] [id number] [place] 10:02:31 10:02:31 Health 2017-06-09 2017-06-09 Outpatient [facility] [id number] [place] 00:00:00 00:00:00 [facility] 2017-06-09 2017-06-09 Outpatient [facility] [id number] [place] 00:00:00 00:00:00 [facility] 2017-05-08 2017-05-08 Emergency [facility] MED [id number] [place] 01:04:44 01:04:44 [facility] 2017-05-05 2017-05-05 Emergency E [facility] MED [id number] 08:11:00 08:11:00 [facility] 2017-04-15 2017-04-15 Emergency E [facility] MED [id number] 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 BASIC METABOLIC [id number] 14:56:00 Test Item Value Reference Range Interpretation [...] MG/DL 70-110 N - XR CHEST 1 [id number] 00:00:00 [facility] MAR[facility] ISABEL JOSEPH : 1970 Sex: M FAX: Steve Urias MD [phone] [place]: [place] [address]: REG Name: MARIA ISABEL JOSEPH FSED : 1970 Age/S: 52/M [address] [facility] Unit #: [id number] [place]: [place] [address] Phys: Steve Urias MD Acct: [id number] DisDate: Status: REG ER PHONE #: Exam Date: 03/29/2022 1501 FAX #: Reason: Weakness EXAMS: CPT CODE: [id number] XR CHEST 1 V 04243 PROCEDURE INFORMATION: Exam: XR Chest Exam date [...] 1530 Reported and signed by: Barrett Bailey M.D.CC: Steve Urias MD Technologist: Avtar Lang, RT(R)(CT) [facility] Date/Time/By: 03/29/2022 (3940) : By: [email or web address] Orig Print D/T: S: 03/29/2022 (0569) PAGE 1 Signed ReportHEPATIC FUNCTION [id number] 06:45:03 Test Item Value Reference Range Interpretation [...] (test code = 13 U/L 6-55 347) Senior Talent Acquisition Specialist KEN HOOD WBASIC METABOLIC [id number] 06:45:02 Test Item Value Reference Range Interpretation [...] S NOT APPLICABLE FOR DIALYSIS PATIEN TS. Senior Talent Acquisition Specialist ID Philipp HOOD WCBC W/PLT COUNT & AUTO [id number] 06:26:54 Test Item Value Reference Range Interpretation [...] (BEAKER) (test code = 2801) U/S, RENAL, [id number] 19:23:00Reason for exam:->acute kidney [facility] 1970 Sex: MFINAL [...] SARS-Co V-2 (test code = target nucleic 27818-4) acids are not detected in thi s [...] revoked sooner. Fact Sheet for Healthcare Providers: https://www.Threadflip/Documents/Xp ert%20Xpress%20SAR S%20CoV-2/Fact%20S heets/302-3802%20S ARS-COV-2%20HEALTH CARE%20PROVIDERS%2 0FACT%20SHEET.pdf Fact Sheet for Healthcare Patients: https://www.Threadflip/Documents/Xp ert%20Xpress%20SAR S%20CoV-2/Fact%20S heets/302-3801%20S ARS-COV-2%20PATIEN T%20FACT%20SHEET.p df Lab Interpretation Normal (test code = 54894-7) [facility]2022-03-06 19:17:07 Test Item Value Reference Interpretation Comments Range SARS-COV2/RT-PCR Negative Negative The SARS-Co V-2 (test code = target nucleic 67932-4) acids are not detected in thi s [...] revoked sooner. Fact Sheet for Healthcare Providers: https://www.Threadflip/Documents/Xp ert%20Xpress%20SAR S%20CoV-2/Fact%20S heets/302-3802%20S ARS-COV-2%20HEALTH CARE%20PROVIDERS%2 0FACT%20SHEET.pdf Fact Sheet for Healthcare Patients: https://www.Threadflip/Documents/Xp ert%20Xpress%20SAR S%20CoV-2/Fact%20S heets/302-3801%20S ARS-COV-2%20PATIEN T%20FACT%20SHEET.p df Lab Interpretation Normal (test code = 42815-7) [facility]As[facility]omatic ONLY)2022-03-06 19:17:07 Test Item Value Reference Interpretation Comments Range SARS-COV2/RT-PCR Negative Negative The SARS-Co V-2 (test code = target nucleic 48524-1) acids are not detected in thi s [...] revoked sooner. Fact Sheet for Healthcare Providers: https://www.Threadflip/Documents/Xp ert%20Xpress%20SAR S%20CoV-2/Fact%20S heets/302-3802%20S ARS-COV-2%20HEALTH CARE%20PROVIDERS%2 0FACT%20SHEET.pdf Fact Sheet for Healthcare Patients: https://wwwPet360/Documents/Xp ert%20Xpress%20SAR S%20CoV-2/Fact%20S heets/302-3801%20S ARS-COV-2%20PATIEN T%20FACT%20SHEET.p df Lab Interpretation Normal (test code = 75411-3) [facility]As[facility]omatic ONLY[facility]2022-03-06 19:17:07 Test Item Value Reference Interpretation Comments Range SARS-COV2/RT-PCR Negative Negative The SARS-Co V-2 (test code = target nucleic 81781-8) acids are not detected in thi s [...] revoked sooner. Fact Sheet for Healthcare Providers: https://www.Threadflip/Documents/Xp ert%20Xpress%20SAR S%20CoV-2/Fact%20S heets/302-3802%20S ARS-COV-2%20HEALTH CARE%20PROVIDERS%2 0FACT%20SHEET.pdf Fact Sheet for Healthcare Patients: https://wwwPet360/Documents/Xp ert%20Xpress%20SAR S%20CoV-2/Fact%20S heets/302-3801%20S ARS-COV-2%20PATIEN T%20FACT%20SHEET.p df Lab Interpretation Normal (test code = 62943-5) [facility]As[facility]omatic ONLY[facility]2022-03-06 19:17:07 Test Item Value Reference Interpretation Comments Range SARS-COV2/RT-PCR Negative Negative The SARS-Co V-2 (test code = target nucleic 52097-4) acids are not detected in thi s [...] revoked sooner. Fact Sheet for Healthcare Providers: https://www.Threadflip/Documents/Xp ert%20Xpress%20SAR S%20CoV-2/Fact%20S heets/302-3802%20S ARS-COV-2%20HEALTH CARE%20PROVIDERS%2 0FACT%20SHEET.pdf Fact Sheet for Healthcare Patients: https://wwwPet360/Documents/Xp ert%20Xpress%20SAR S%20CoV-2/Fact%20S heets/302-3801%20S ARS-COV-2%20PATIEN T%20FACT%20SHEET.p df Lab Interpretation Normal (test code = 02791-8) [facility]As[facility]omatic ONLY[facility]2022-03-06 19:17:07 Test Item Value Reference Interpretation Comments Range SARS-COV2/RT-PCR Negative Negative The SARS-Co V-2 (test code = target nucleic 27600-9) acids are not detected in thi s [...] revoked sooner. Fact Sheet for Healthcare Providers: https://www.Threadflip/Documents/Xp ert%20Xpress%20SAR S%20CoV-2/Fact%20S heets/302-3802%20S ARS-COV-2%20HEALTH CARE%20PROVIDERS%2 0FACT%20SHEET.pdf Fact Sheet for Healthcare Patients: https://www.Threadflip/Documents/Xp ert%20Xpress%20SAR S%20CoV-2/Fact%20S heets/302-3801%20S ARS-COV-2%20PATIEN T%20FACT%20SHEET.p df Lab Interpretation Normal (test code = 92341-4) [facility] ONLY[facility]2022-03-06 19:17:07 Test Item Value Reference Interpretation Comments Range SARS-COV2/RT-PCR Negative Negative The SARS-Co V-2 (test code = target nucleic 17819-5) acids are not detected in thi s [...] revoked sooner. Fact Sheet for Healthcare Providers: https://www.Threadflip/Documents/Xp ert%20Xpress%20SAR S%20CoV-2/Fact%20S heets/302-3802%20S ARS-COV-2%20HEALTH CARE%20PROVIDERS%2 0FACT%20SHEET.pdf Fact Sheet for Healthcare Patients: https://www.Threadflip/Documents/Xp ert%20Xpress%20SAR S%20CoV-2/Fact%20S heets/302-3801%20S ARS-COV-2%20PATIEN T%20FACT%20SHEET.p df Lab Interpretation Normal (test code = 38915-4) [facility]2022-03-06 19:17:07 Test Item Value Reference Interpretation Comments Range SARS-COV2/RT-PCR Negative Negative The SARS-Co V-2 (test code = target nucleic 89018-0) acids are not detected in thi s [...] revoked sooner. Fact Sheet for Healthcare Providers: https://www.Threadflip/Documents/Xp ert%20Xpress%20SAR S%20CoV-2/Fact%20S heets/302-3802%20S ARS-COV-2%20HEALTH CARE%20PROVIDERS%2 0FACT%20SHEET.pdf Fact Sheet for Healthcare Patients: https://www.Threadflip/Documents/Xp ert%20Xpress%20SAR S%20CoV-2/Fact%20S heets/302-3801%20S ARS-COV-2%20PATIEN T%20FACT%20SHEET.p df Lab Interpretation Normal (test code = 52978-2) [facility]2022-03-06 19:17:07 Test Item Value Reference Interpretation Comments Range SARS-COV2/RT-PCR Negative Negative The SARS-Co V-2 (test code = target nucleic 70815-8) acids are not detected in thi s [...] revoked sooner. Fact Sheet for Healthcare Providers: https://www.Threadflip/Documents/Xp ert%20Xpress%20SAR S%20CoV-2/Fact%20S heets/302-3802%20S ARS-COV-2%20HEALTH CARE%20PROVIDERS%2 0FACT%20SHEET.pdf Fact Sheet for Healthcare Patients: https://www.Threadflip/Documents/Xp ert%20Xpress%20SAR S%20CoV-2/Fact%20S heets/302-3801%20S ARS-COV-2%20PATIEN T%20FACT%20SHEET.p df Lab Interpretation Normal (test code = 62178-0) [facility]omatic [facility]2022-03-06 19:17:07 Test Item Value Reference Interpretation Comments Range SARS-COV2/RT-PCR Negative Negative The SARS-Co V-2 (test code = target nucleic 58308-0) acids are not detected in thi s [...] revoked sooner. Fact Sheet for Healthcare Providers: https://www.Threadflip/Documents/Xp ert%20Xpress%20SAR S%20CoV-2/Fact%20S heets/302-3802%20S ARS-COV-2%20HEALTH CARE%20PROVIDERS%2 0FACT%20SHEET.pdf Fact Sheet for Healthcare Patients: https://www.Threadflip/Documents/Xp ert%20Xpress%20SAR S%20CoV-2/Fact%20S heets/302-3801%20S ARS-COV-2%20PATIEN T%20FACT%20SHEET.p df Lab Interpretation Normal (test code = 12345-7) [facility]2022-03-06 19:17:07 Test Item Value Reference Interpretation Comments Range SARS-COV2/RT-PCR Negative Negative The SARS-Co V-2 (test code = target nucleic 80087-8) acids are not detected in thi s [...] revoked sooner. Fact Sheet for Healthcare Providers: https://www.Threadflip/Documents/Xp ert%20Xpress%20SAR S%20CoV-2/Fact%20S heets/302-3802%20S ARS-COV-2%20HEALTH CARE%20PROVIDERS%2 0FACT%20SHEET.pdf Fact Sheet for Healthcare Patients: https://www.Threadflip/Documents/Xp ert%20Xpress%20SAR S%20CoV-2/Fact%20S heets/302-3801%20S ARS-COV-2%20PATIEN T%20FACT%20SHEET.p df Lab Interpretation Normal (test code = 63923-0) [facility]2022-03-06 19:17:07 Test Item Value Reference Interpretation Comments Range SARS-COV2/RT-PCR Negative Negative The SARS-Co V-2 (test code = target nucleic 01268-9) acids are not detected in thi s [...] revoked sooner. Fact Sheet for Healthcare Providers: https://www.Threadflip/Documents/Xp ert%20Xpress%20SAR S%20CoV-2/Fact%20S heets/3023802%20S ARS-COV-2%20HEALTH CARE%20PROVIDERS%2 0FACT%20SHEET.pdf Fact Sheet for Healthcare Patients: https://www.Threadflip/Documents/Xp ert%20Xpress%20SAR S%20CoV-2/Fact%20S heets/302-3801%20S ARS-COV-2%20PATIEN T%20FACT%20SHEET.p df Lab Interpretation Normal (test code = 64933-6) [facility]omatic ONLY[facility]2022-03-06 19:17:07 Test Item Value Reference Interpretation Comments Range SARS-COV2/RT-PCR Negative Negative The SARS-Co V-2 (test code = target nucleic 47945-4) acids are not detected in thi s [...] revoked sooner. Fact Sheet for Healthcare Providers: https://www.Threadflip/Documents/Xp ert%20Xpress%20SAR S%20CoV-2/Fact%20S heets/302-3802%20S ARS-COV-2%20HEALTH CARE%20PROVIDERS%2 0FACT%20SHEET.pdf Fact Sheet for Healthcare Patients: https://www.Threadflip/Documents/Xp ert%20Xpress%20SAR S%20CoV-2/Fact%20S heets/302-3801%20S ARS-COV-2%20PATIEN T%20FACT%20SHEET.p df Lab Interpretation Normal (test code = 76149-6) [facility])2022-03-06 19:17:07 Test Item Value Reference Range Interpretation Comments SARS-COV2/RT-PCR Negative Negative The SARS-Co V-2 target (test code = nucleic acids a re not 3715639) detected in thi s specimen. Negative result [...] revoked sooner. Fact Sheet for Healthcare Providers: https://www.MailLift.co m/Documents/Xpert%20Xpress%20SARS%20CoV-2/Fact%20Sheets/3023802%54HHZB-NMA-1%20 HEALTHCARE%20PROVIDERS%20FACT%20SHEET.pdf Fact Sheet for Healthcare Patients: https://www.Cirrascale/Documents/Xpert%20Xp ress%20SARS%20CoV-2/Fact%20Sheets/3023801%80FFWW-FYN-4%20PATIENT%20FACT%20SHEET .pdfCREATINE KINASE (CK)2022-03-06 16:19:14 Test Item Value Reference Range Interpretation Comments CREATINE KINASE TOTAL (KINGAKER) (test 141 U/L 29-200 code = 380) Senior Talent Acquisition Specialist ID - BST4, [id number] 15:13:16 Test Item Value Reference Range Interpretation Comments FREE T4 (GILMAR) (test code = 655) 0.95 ng/dL 0.70-1.48 Senior Talent Acquisition Specialist ID - BSTSH/FREE T4 IF [id number] 15:13:16 Test Item Value Reference Range Interpretation Comments THYROID STIMULATING HORMONE 2.060 uIU/mL 0.350-4.940 (BEAKER) (test code = 772) Senior Talent Acquisition Specialist ID - BSB-TYPE NATRIURETIC FACTOR (BNP)2022-03-06 14:26:30 Test Item Value Reference Range Interpretation Comments B-TYPE NATRIURETIC PEPTIDE (GILMAR) < pg/mL 0-100 (test code = 700) Senior Talent Acquisition Specialist ID - JSHIGH SENSITIVITY TROPONIN [id number] 14:14:54 Test Item Value Reference Range Interpretation Comments HIGH SENSITIVITY < pg/ml See_Comment [Automated message] TROPONIN I (test code = The system which [id number]) generated this result transmitted ref erence range: <=35. Th e reference range was not used to interpr et this result as normal/abnormal . Senior Talent Acquisition Specialist ID - JSThe UNIONMELT OPERATOR STAT High Sensitivity Troponin-I results should be used in conjunctionwith other diagnostic information such as ECG, clinical observations and information, and patient symptoms to aid in the diagnosis of VT.RAD, CHEST, 1 VIEW, NON [id number] 14:10:00Reason for exam:- >NEUROLOGIC PROBLEMShould this be performed at the bedside?->Yes [facility] : 1970 Sex: MFINAL REPORT Chest, 1 view, 03/06/2022 2:03 PM. History: Neurologic problem. Comparison: 03/28/2019. Discussion: The cardiomediastinal silhouette and pulmonary vasculature are within normal limits for a portable exam. The lungs are clear without evidence of consolidation or effusion. The soft tissues and osseous structures are intact. IMPRESSION: No acute cardiopulmonary abnormality. Signed: Bernabe Browneport Verified Date/Time: 03/06/2022 14:10:44 REHENSIVE METABOLIC [id number] 14:08:22 Test Item Value Reference Range Interpretation [...] S NOT APPLICABLE FOR DIALYSIS PATIEN TS. Senior Talent Acquisition Specialist ID - [id number] 14:07:49 Test Item Value Reference Range Interpretation Comments MAGNESIUM (BEAKER) (test code = 2.0 mg/dL 1.6-2.6 627) Senior Talent Acquisition Specialist ID - [id number] 14:07:49 Test Item Value Reference Range Interpretation Comments PHOSPHORUS (BEAKER) (test code = 5.6 mg/dL 2.3-4.7 H 604) Senior Talent Acquisition Specialist ID - JSLACTIC ACID, [id number] 13:51:04 Test Item Value Reference Range Interpretation Comments LACTATE BLOOD VENOUS 1.32 mmol/L 0.50-2.20 Specime n slightly (2) (BEAKER) (test hemolyzed code = 2872) Senior Talent Acquisition Specialist ID - JSCBC W/PLT COUNT & AUTO [id number] 13:47:24 Test Item Value Reference Range Interpretation [...] (BEAKER) (test code = 2801) Coronavirus, CoVID-19, [id number] 01:07:20 Test Item Value Reference Range Interpretation Comments COVID-19 (SARS-COV-2) Not Detected Not Detected INTERP RETATION: No (test code = 23637-7) detect able levels of SARS-CoV-2 Coronavirus (COVID-19) [...] SARS-CoV-2 mole cular diagnostic assa y utilizes Process Inspector Mediated Amplification ( TMA) technology to r apidly detect the SARS -CoV-2 (COVID-19) viru s from respiratory adriana ples. In accordance w ith the FDA's kamran nce document "Polic y for Diagnostic Test s for Coronavirus Disease-2019 du ring the Public [facility] Emergency", ginger s test was developed, and its performance characteristics were verified by the [facility] molecular diagn ostics laboratory and is authorized for clinical diagno stic use. This labor atory is certified un estevan the Clinical Laboratory Improvement Amendments (CLI A) as qualified to pe rform high complexity clinical labora tory testing. Lab Interpretation Normal (test code = 16945-6) Maged Ruelasronavirus, CoVID-19, [id number] 01:07:20 Test Item Value Reference Range Interpretation Comments COVID-19 (SARS-COV-2) Not Detected Not Detected INTERP RETATION: No (test code = 04465-5) detect able levels of SARS-CoV-2 Coronavirus (COVID-19) [...] SARS-CoV-2 mole cular diagnostic assa y utilizes Process Inspector Mediated Amplification ( TMA) technology to r apidly detect the SARS -CoV-2 (COVID-19) viru s from respiratory adriana ples. In accordance w ith the FDA's kamran nce document "Polic y for Diagnostic Test s for Coronavirus Disease-2019 du ring the [facility] Emergency", thi s test was developed, and its performance characteristics were verified by the [facility] molecular diagn ostics laboratory and is authorized for clinical diagno stic use. This labor atory is certified un est[place] the Clinical Laboratory Improvement Amendments (CLI A) as qualified to pe rform high complexity clinical labora tory testing. Lab Interpretation Normal (test code = 86491-9) [facility], [facility], [id number] 01:07:20 Test Item Value Reference Range Interpretation Comments COVID-19 (SARS-COV-2) Not Detected Not Detected INTERP RETATION: No (test code = 47198-6) detect able levels of SARS-CoV-2 Coronavirus (COVID-19) [...] SARS-CoV-2 mole cular diagnostic assa y utilizes Process Inspector Mediated Amplification ( TMA) technology to r apidly detect the SARS -CoV-2 (COVID-19) viru s from respiratory adriana ples. In accordance w ith the FDA's kamran nce document "Polic y for Diagnostic Test s for Coronavirus Disease-2019 du [facility] the [facility] Emergency", thi s test was developed, and its performance characteristics were verified by the [facility] molecular diagn ostics laboratory and is authorized for clinical diagno stic use. This labor atory is certified un est[place] the Clinical Laboratory Improvement Amendments (CLI A) as qualified to pe rform high complexity clinical labora tory testing. Lab Interpretation Normal (test code = 35181-0) [facility] CenterLeonardronavirus, CoVID-19, [id number] 01:07:20 Test Item Value Reference Range Interpretation Comments COVID-19 (SARS-COV-2) Not Detected Not Detected INTERP RETATION: No (test code = 47079-7) detect able levels of SARS-CoV-2 Coronavirus (COVID-19) [...] SARS-CoV-2 mole cular diagnostic assa y utilizes Process Inspector Mediated Amplification ( TMA) technology to r apidly detect the SARS -CoV-2 (COVID-19) viru s from respiratory adriana ples. In accordance w ith the FDA's kamran nce document "Polic y for Diagnostic Test s for Coronavirus Disease-2019 du [facility] the [facility] Emergency", thi s test was developed, and its performance characteristics were verified by the [facility] molecular diagn ostics laboratory and is authorized for clinical diagno stic use. This labor atory is certified un estevan the Clinical Laboratory Improvement Amendments (CLI A) as qualified to pe rform high complexity clinical labora tory testing. Lab Interpretation Normal (test code = 77229-3) [facility], CoV[facility]-19, [id number] 01:07:20 Test Item Value Reference Range Interpretation Comments COVID-19 (SARS-COV-2) Not Detected Not Detected INTERP RETATION: No (test code = 22534-4) detect able levels of SARS-CoV-2 Coronavirus (COVID-19) [...] SARS-CoV-2 mole cular diagnostic assa y utilizes Process Inspector Mediated Amplification ( TMA) technology to r apidly detect the SARS -CoV-2 (COVID-19) viru s from respiratory adriana ples. In accordance w ith the FDA's kamran nce document "Polic y for Diagnostic Test s for Coronavirus Disease-2019 du [facility] the Public [facility]", thi s test was developed, and its performance characteristics were verified by the [facility] molecular diagn ostics laboratory and is authorized for clinical diagno stic use. This labor atory is certified un estevan the Clinical Laboratory Improvement Amendments (CLI A) as qualified to pe rform high complexity clinical labora tory testing. Lab Interpretation Normal (test code = 95147-8) [facility] Center[facility], CoVID-19, [id number] 01:07:20 Test Item Value Reference Range Interpretation Comments COVID-19 (SARS-COV-2) Not Detected Not Detected INTERP RETATION: No (test code = 69035-9) detect able levels of SARS-CoV-2 Coronavirus (COVID-19) [...] SARS-CoV-2 mole cular diagnostic assa y utilizes Process Inspector Mediated Amplification ( TMA) technology to r apidly detect the SARS -CoV-2 (COVID-19) viru s from respiratory adriana ples. In accordance w ith the FDA's kamran nce document "Polic y for Diagnostic Test s for Coronavirus Disease-2019 du [facility] the Public [facility]", thi s test was developed, and its performance characteristics were verified by the [facility] molecular diagn ostics laboratory and is authorized for clinical diagno stic use. This labor atory is certified un est[place] the Clinical Laboratory Improvement Amendments (CLI A) as qualified to pe rform high complexity clinical labora tory testing. Lab Interpretation Normal (test code = 52272-6) Maged Ruelasronavirus, CoVID-19, [id number] 01:07:20 Test Item Value Reference Range Interpretation Comments COVID-19 (SARS-COV-2) Not Detected Not Detected INTERP RETATION: No (test code = 43153-1) detect able levels of SARS-CoV-2 Coronavirus (COVID-19) [...] SARS-CoV-2 mole cular diagnostic assa y utilizes Process Inspector Mediated Amplification ( TMA) technology to r apidly detect the SARS -CoV-2 (COVID-19) viru s from respiratory adriana ples. In accordance w ith the FDA's kamran nce document "Polic y for Diagnostic Test s for Coronavirus Disease-2019 du [facility] the [facility] Emergency", thi s test was developed, and its performance characteristics were verified by the [facility] molecular diagn ostics laboratory and is authorized for clinical diagno stic use. This labor atory is certified un est[place] the Clinical Laboratory Improvement Amendments (CLI A) as qualified to pe rform high complexity clinical labora tory testing. Lab Interpretation Normal (test code = 21993-7) Maged Ruelasronavirus, CoVID-19, [id number] 01:07:20 Test Item Value Reference Range Interpretation Comments COVID-19 (SARS-COV-2) Not Detected Not Detected INTERP RETATION: No (test code = 59721-4) detect able levels of SARS-CoV-2 Coronavirus (COVID-19) [...] SARS-CoV-2 mole cular diagnostic assa y utilizes Process Inspector Mediated Amplification ( TMA) technology to r apidly detect the SARS -CoV-2 (COVID-19) viru s from respiratory adriana ples. In accordance w ith the FDA's kamran nce document "Polic y for Diagnostic Test s for Coronavirus Disease-2019 du [facility] the [facility] Emergency", thi s test was developed, and its performance characteristics were verified by the [facility] molecular diagn ostics laboratory and is authorized for clinical diagno stic use. This labor atory is certified un est[place] the Clinical Laboratory Improvement Amendments (CLI A) as qualified to pe rform high complexity clinical labora tory testing. Lab Interpretation Normal (test code = 30991-3) [facility] Center[facility], CoV[facility]-19, [id number] 01:07:20 Test Item Value Reference Range Interpretation Comments COVID-19 (SARS-COV-2) Not Detected Not Detected INTERP RETATION: No (test code = 88674-0) detect able levels of SARS-CoV-2 Coronavirus (COVID-19) [...] SARS-CoV-2 mole cular diagnostic assa y utilizes Process Inspector Mediated Amplification ( TMA) technology to r apidly detect the SARS -CoV-2 (COVID-19) viru s from respiratory adriana ples. In accordance w ith the FDA's kamran nce document "Polic y for Diagnostic Test s for Coronavirus Disease-2019 du [facility] the Public [facility]", thi s test was developed, and its performance characteristics were verified by the [facility] molecular diagn ostics laboratory and is authorized for clinical diagno stic use. This labor atory is certified un estevan the Clinical Laboratory Improvement Amendments (CLI A) as qualified to pe rform high complexity clinical labora tory testing. Lab Interpretation Normal (test code = 07148-9) [facility] CenterCor[facility], CoVID-19, [id number] 01:07:20 Test Item Value Reference Range Interpretation Comments COVID-19 (SARS-COV-2) Not Detected Not Detected INTERP RETATION: No (test code = 77159-6) detect able levels of SARS-CoV-2 Coronavirus (COVID-19) [...] SARS-CoV-2 mole cular diagnostic assa y utilizes Process Inspector Mediated Amplification ( TMA) technology to r apidly detect the SARS -CoV-2 (COVID-19) viru s from respiratory adriana ples. In accordance w ith the FDA's kamran nce document "Polic y for Diagnostic Test s for Coronavirus Disease-2019 du [facility] the Public [facility]", thi s test was developed, and its performance characteristics were verified by the [facility] molecular diagn ostics laboratory and is authorized for clinical diagno stic use. This labor atory is certified un estevan the Clinical Laboratory Improvement Amendments (CLI A) as qualified to pe rform high complexity clinical labora tory testing. Lab Interpretation Normal (test code = 30667-5) Maged Ruelasronavirus, CoVID-19, [id number] 01:07:20 Test Item Value Reference Range Interpretation Comments COVID-19 (SARS-COV-2) Not Detected Not Detected INTERP RETATION: No (test code = 37034-5) detect able levels of SARS-CoV-2 Coronavirus (COVID-19) [...] SARS-CoV-2 mole cular diagnostic assa y utilizes Process Inspector Mediated Amplification ( TMA) technology to r apidly detect the SARS -CoV-2 (COVID-19) viru s from respiratory adriana ples. In accordance w ith the FDA's kamran nce document "Polic y for Diagnostic Test s for Coronavirus Disease-2019 du ring the Public [facility]al Emergency", thi s test was developed, and its performance characteristics were verified by the [facility] molecular diagn ostics laboratory and is authorized for clinical diagno stic use. This labor atory is certified un estevan the Clinical Laboratory Improvement Amendments (CLI A) as qualified to pe rform high complexity clinical labora tory testing. Lab Interpretation Normal (test code = 23715-5) Maged Ruelasronavirus, CoVID-19, [id number] 01:07:20 Test Item Value Reference Range Interpretation Comments COVID-19 (SARS-COV-2) Not Detected Not Detected INTERP RETATION: No (test code = 87199-3) detect able levels of SARS-CoV-2 Coronavirus (COVID-19) [...] SARS-CoV-2 mole cular diagnostic assa y utilizes Process Inspector Mediated Amplification ( TMA) technology to r apidly detect the SARS -CoV-2 (COVID-19) viru s from respiratory adriana ples. In accordance w ith the FDA's kamran nce document "Polic y for Diagnostic Test s for Coronavirus Disease-2019 du [facility] the Public [facility]", thi s test was developed, and its performance characteristics were verified by the [facility] molecular diagn ostics laboratory and is authorized for clinical diagno stic use. This labor atory is certified un estevan the Clinical Laboratory Improvement Amendments (CLI A) as qualified to pe rform high complexity clinical labora tory testing. Lab Interpretation Normal (test code = 95210-5) [facility], CoV[facility]-19, [id number] 01:07:20 Test Item Value Reference Range Interpretation Comments COVID-19 (SARS-COV-2) Not Detected Not Detected INTERP RETATION: No (test code = 78684-2) detect able levels of SARS-CoV-2 Coronavirus (COVID-19) [...] SARS-CoV-2 mole cular diagnostic assa y utilizes Process Inspector Mediated Amplification ( TMA) technology to r apidly detect the SARS -CoV-2 (COVID-19) viru s from respiratory adriana ples. In accordance w ith the FDA's kamran nce document "Polic y for Diagnostic Test s for Coronavirus Disease-2019 du ring the [facility] Emergency", thi s test was developed, and its performance characteristics were verified by the [facility] molecular diagn ostics laboratory and is authorized for clinical diagno stic use. This labor atory is certified un estevan the Clinical Laboratory Improvement Amendments (CLI A) as qualified to pe rform high complexity clinical labora tory testing. Lab Interpretation Normal (test code = 63220-5) [facility] CenterGlqpmhSCIW-OfU-4 ORF1ab Resp Ql [id number] 01:07:20 Test Item Value Reference Range Interpretation Comments Hospitalized? (test No code = 03320-9) ICU? (test code = No 01196-9) Symptomatic as No defined by CDC? (test code = 56598-2) Employed in No Healthcare? (test code = 40483-4) Resident in a No congregate care setting (including nursing homes, residential care for people with intellectual and developmental disabilities, psychiatric treatment facilities, group homes, board and care homes, homeless correction, foster care or other): (test code = 66991-1) SARS-CoV-2 ORF1ab NOT DETECTED Not Detected INTERPRETA TION: No Resp Ql OLENA+probe detectable levels of (test code = SARS-CoV-2 97657-9) Coronavirus (COVID-19) were present in this patient's [...] SARS-CoV-2 mole cular diagnostic assa y utilizes Process Inspector Mediated Amplification ( TMA) technology to r apidly detect the SARS -CoV-2 (COVID-19) viru s from respiratory adriana ples. In accordance with\\XC2A0\\the FDA's guidance docume nt "Policy for Diagnostic Test s for Coronavirus Disease-2019 du ring the [facility] Emergency", ginger s test was developed, and its performance characteristics were verified by the [facility] molecular diagn ostics laboratory and is authorized for clinical diagno stic use. \\XC2A0\\Ginger s laboratory is certified under the Clinical Labora tory Improvement Amendments (CLI A) as qualified to pe rform high complexity clinical labora tory testing. [facility] [id number] 08:09:01 Test Item Value Reference Range Interpretation Comments Glucose POC (test code = 32892417) 85 mg/dL 74-106 Lab Interpretation (test code = Normal 99993-3) [facility] [id number] 08:09:01 Test Item Value Reference Range Interpretation Comments Glucose POC (test code = 63429330) 85 mg/dL 74-106 Lab Interpretation (test code = Normal 45413-5) [facility] [id number] 08:09:01 Test Item Value Reference Range Interpretation Comments Glucose POC (test code = 94812925) 85 mg/dL 74-106 Lab Interpretation (test code = Normal 50499-6) [facility] [id number] 08:09:01 Test Item Value Reference Range Interpretation Comments Glucose POC (test code = 89888958) 85 mg/dL 74-106 Lab Interpretation (test code = Normal 74319-9) [facility] [id number] 08:09:01 Test Item Value Reference Range Interpretation Comments Glucose POC (test code = 50215900) 85 mg/dL 74-106 Lab Interpretation (test code = Normal 66727-7) [facility] [id number] 08:09:01 Test Item Value Reference Range Interpretation Comments Glucose POC (test code = 06334349) 85 mg/dL 74-106 Lab Interpretation (test code = Normal 04409-3) [facility] [id number] 08:09:01 Test Item Value Reference Range Interpretation Comments Glucose POC (test code = 15470263) 85 mg/dL 74-106 Lab Interpretation (test code = Normal 47801-0) [facility] [id number] 08:09:01 Test Item Value Reference Range Interpretation Comments Glucose POC (test code = 47219095) 85 mg/dL 74-106 Lab Interpretation (test code = Normal 13460-5) [facility] [id number] 08:09:01 Test Item Value Reference Range Interpretation Comments Glucose POC (test code = 38851119) 85 mg/dL 74-106 Lab Interpretation (test code = Normal 65674-3) [facility] [id number] 08:09:01 Test Item Value Reference Range Interpretation Comments Glucose POC (test code = 58714978) 85 mg/dL 74-106 Lab Interpretation (test code = Normal 94389-3) [facility] [id number] 08:09:01 Test Item Value Reference Range Interpretation Comments Glucose POC (test code = 98193264) 85 mg/dL 74-106 Lab Interpretation (test code = Normal 35809-1) [facility] [id number] 08:09:01 Test Item Value Reference Range Interpretation Comments Glucose POC (test code = 29999548) 85 mg/dL 74-106 Lab Interpretation (test code = Normal 40693-5) [facility] [id number] 08:09:01 Test Item Value Reference Range Interpretation Comments Glucose POC (test code = 98752925) 85 mg/dL 74-106 Lab Interpretation (test code = Normal 99540-8) [facility] CenterKupoveSJAN-KcL-1 ORF1ab Resp Ql OLENA+[id number] 23:25:40 Test Item Value Reference Range Interpretation Comments Hospitalized? (test No code = 20094-0) ICU? (test code = No 60814-9) Symptomatic as No defined by CDC? (test code = 24490-1) Employed in No Healthcare? (test code = 21273-2) Resident in a No congregate care setting (including nursing homes, residential care for people with intellectual and developmental disabilities, psychiatric treatment facilities, group homes, board and care homes, homeless correction, foster care or other): (test code = 33795-7) SARS-CoV-2 ORF1ab NOT DETECTED Not Detected INTERPRETA TION: No Resp Ql OLENA+probe detectable levels of (test code = SARS-CoV-2 59648-6) Coronavirus (COVID-19) were present in this patient's [...] SARS-CoV-2 mole cular diagnostic assa y utilizes Process Inspector Mediated Amplification ( TMA) technology to r apidly detect the SARS -CoV-2 (COVID-19) viru s from respiratory adriana ples. In accordance with\\XC2A0\\the FDA's guidance docume nt "Policy for Diagnostic Test s for Coronavirus Disease-2019 du [facility] the Public [facility] Emergency", ginger s test was developed, and its performance characteristics were verified by the [facility] molecular diagn ostics laboratory and is authorized for clinical diagno stic use. \\XC2A0\\Thi s laboratory is certified under the Clinical Labora tory Improvement Amendments (CLI A) as qualified to pe rform high complexity clinical labora tory testing. H[facility]12 Lead [id number] 15:46:[address] [facility] Test Date: 7588-32-24Bhu Name: DORA JOSEPH Department: 5ECIPatient ID: [id number] Room: Gender: Builder Beam: [id number]: 1970 Requested By: DARRION LOERA [place] Number: [id number] Lawson MD: Rene Patterson MeasurementsIntervals [place] Rate: 61 P: 72PR: 152 QRS: 55QRSD: 106 T: 63QT: 398 QTc: 400 Interpretive StatementsSINUS RHYTHMPOSSIBLE RIGHT VENTRICULAR CONDUCTION DELAY [RSR (QR) IN V1/V2]Electronically Signed On 01-22-2022 8:30:45 CDT by Rene Valle Oixiya74 Lead [id number] 15:46:[address] [facility] Test Date: 2154-67-48Kje Name: DORA JOSEPH Department: 5EPatient ID: [id number] Room: Gender: Builder Beam: [id number]: 1970 Requested By: DARRION Cho Number: [id number] Reading MD: Rene Patterson MeasurementsIntervals [place] Rate: 61 P: 72PR:152 QRS: 55QRSD: 106 T: 63QT: 398 QTc: 400 Interpretive StatementsSINUS RHYTHMPOSSIBLE RIGHT VENTRICULAR CONDUCTION DELAY [RSR (QR) IN V1/V2]Electronically Signed On 01-22-2022 8:30:45 CDT by Rene AvitiaCloudjutsuCompashiprock-[facility] centerb [id number] Lead [id number] 15:46:[address] [facility] Test Date: 2359-26-14Ibl Name: DORA JOSEPH Department: 5ECIPatient ID: [id number] Room: Gender: Builder Beam: [id number]: 1970 Requested By: DARRION Cho Number: [id number] Reading MD: Rene Patterson MeasurementsIntervals [place] Rate: 61 P: 72PR: 152 QRS: 55QRSD: 106 T: 63QT: 398 QTc: 400 Interpretive StatementsSINUS RHYTHMPOSSIBLE RIGHT VENTR ICULAR CONDUCTION DELAY [RSR (QR) IN V1/V2]Electronically Signed On 01-22-2022 8:30:45 CDT by Rene SadiCloudjutsuCompashiprock-[facility] centerb Godnpx06 Lead [id number] 15:46:[address] [facility] Test Date: 1686-79-33Kvr Name: DORA JOSEPH Department: 5ECIPatient ID: [id number] Room: Gender: M Builder Beam: [id number]: 1970 Requested By: DARRION Cho Number: [id number] Reading MD: Rene Patterson MeasurementsIntervals Jasper Rate: 61 P: 72PR: 152 QRS: 55QRSD: 106 T: 63QT: 398 QTc: 400 Interpretive StatementsSINUS RHYTHMPOSSIBLE RIGHT VENTRICULAR CONDUCTION DELAY [RSR (QR) IN V1/V2]Electronically Signed On 01-22-2022 8:30:45 CDT by Rene [facility] Lead [id number] 15:46:[address] [facility] Test Date: 9136-33-40Hwj Name: DORA JOSEPH Department: 5ECIPatient ID: [id number] Room: Gender: M Builder Beam: [id number]: 1970 Requested By: DARRION Cho Number: [id number] Reading MD: Rene Patterson MeasurementsIntervals Jasper Rate: 61 P: 72PR: 152 QRS: 55QRSD: 106 T: 63QT: 398 QTc: 400 Interpretive StatementsSINUS RHYTHMPOSSIBLE RIGHT VENTRICULAR CONDUCTION DELAY [RSR (QR) IN V1/V2]Electronically Signed On 01-22-2022 8:30:45 CDT by Rene [facility]b Jjjqyl04 Lead [id number] 15:46:[address] [facility] Test Date: 5779-46-36Ihv Name: DORA JOSEPH Department: 5ECIPatient ID: [id number] Room: Gender: M Builder Beam: [id number]: 1970 Requested By: DARRION Cho Number: [id number] Reading MD: Rene Patterson MeasurementsIntervals Jasper Rate: 61 P: 72PR: 152 QRS: 55QRSD: 106 T: 63QT: 398 QTc: 400 Interpretive StatementsSINUS RHYTHMPOSSIBLE RIGHT VENTRICULAR CONDUCTION DELAY [RSR (QR) IN V1/V2]Electronically Signed On 01-22-2022 8:30:45 CDT by Rene AvitiaCloudjutsuCompaAponia Laboratories12 Lead [id number] 15:46:[address] [facility] Test Date: 4766-52-68Wtj Name: DORA JOSEPH Department: 5ECIPatient ID: [id number] Room: Gender: M Builder Beam: [id number]: 1970 Requested By: DARRION Cho Number: [id number] Reading MD: Rene Patterson MeasurementsIntervals Jasper Rate: 61 P: 72PR: 152 QRS: 55QRSD: 106 T: 63QT: 398 QTc: 400 Interpretive StatementsSINUS RHYTHMPOSSIBLE RIGHT VENT RICULAR CONDUCTION DELAY [RSR (QR) IN V1/V2]Electronically Signed On 01-22-2022 8:30:45 CDT by Rene Valle Xsadpa36 Lead [id number] 15:46:[address] [facility] Test Date: 3772-19-92Nwd Name: DORA JOSEPH Department: 5EPatient ID: [id number] Room: Gender: M Builder Beam: [id number]: 1970 Requested By: DARRION Cho Number: [id number] Reading MD: Rene Patterson MeasurementsIntervals Jasper Rate: 61 P: 72PR: 152 QRS: 55QRSD: 106 T: 63QT: 398 QTc: 400 Interpretive StatementsSINUS RHYTHMPOSSIBLE RIGHT VENTRICULAR CONDUCTION DELAY [RSR (QR) IN V1/V2]Electronically Signed On 01-22-2022 8:30:45 CDT by Rene Valle Rzfbqf36 Lead [id number] 15:46:[address] [facility] Test Date: 7934-98-21Wya Name: DORA JOSEPH Department: 5ECIPatient ID: [id number] Room: Gender: M Builder Beam: [id number]: 1970 Requested By: DARRION Cho Number: [id number] Reading MD: Rene Patterson MeasurementsIntervals Jasper Rate: 61 P: 72PR : 152 QRS: 55QRSD: 106 T: 63QT: 398 QTc: 400 Interpretive StatementsSINUS RHYTHMPOSSIBLE RIGHT VENTRICULAR CONDUCTION DELAY [RSR (QR) IN V1/V2]Electronically Signed On 01-22-2022 8:30:45 CDT by Rene RaanSCloudjutsuHarris Horztr39 Lead [id number] 15:46:[address] [facility] Test Date: 1764-00-12Kzn Name: DORA JOSEPH Department: 5ECIPatient ID: [id number] Room: Gender: M Builder Beam: [id number]: 1970 Requested By: DARRION Cho Number: [id number] Reading MD: Rene Patterson MeasurementsIntervals Jasper Rate: 61 P: 72PR: 152 QRS: 55QRSD: 106 T: 63QT: 398 QTc: 400 Interpretive StatementsSINUS RHYTHMPOSSIBLE RIGHT VENTRICULAR CONDUCTION DELAY [RSR (QR) IN V1/V2]Electronically Signed On 01-22-2022 8:30:45 CDT by Rene [facility] HospitalanSCloudjutsuHarris Byvfev07 Lead [id number] 15:46:[address] [facility] Test Date: 1923-62-59Jkz Name: DORA JOSEPH Department: 5ECIPatient ID: [id number] Room: Gender: M Builder Beam: [id number]: 1970 Requested By: DARRION Cho Number: [id number] Reading MD: Rene Patterson MeasurementsIntervals Jasper Rate: 61 P: 72PR: 152 QRS: 55QRSD: 106 T: 63QT: 398 QTc: 400 Interpretive StatementsSINUS RHYTHMPOSSIBLE RIGHT VENTR ICULAR CONDUCTION DELAY [RSR (QR) IN V1/V2]Electronically Signed On 01-22-2022 8:30:45 CDT by Rene [facility]itt[facility] HospitalDebbyCloudjutsuCentral Arkansas Veterans Healthcare Systemris Jmvxnj57 Lead [id number] 15:46:[address] [facility] Test Date: 2721-80-67Ows Name: DORA JOSEPH Department: 5ECIPatient ID: [id number] Room: Gender: M Builder Beam: [id number]: 1970 Requested By: DARRION Cho Number: [id number] Reading MD: Rene Patterson MeasurementsIntervals Jasper Rate: 61 P: 72PR: 152 QRS: 55QRSD: 106 T: 63QT: 398 QTc: 400 Interpretive StatementsSINUS RHYTHMPOSSIBLE RIGHT VENTRICULAR CONDUCTION DELAY [RSR (QR) IN V1/V2]Electronically Signed On 01-22-2022 8:30:45 CDT by [place] [address] Lead [id number] 15:46:[address] [facility] Test Date: 4795-00-20Cim Name: DORA JOSEPH Department: 5ECIPatient ID: [id number] Room: Gender: M Builder Beam: [id number]: 1970 Requested By: DARRION Cho Number: [id number] Reading MD: Rene Patterson MeasurementsIntervals Jasper Rate: 61 P: 72PR: 152 QRS: 55QRSD: 106 T: 63QT: 398 QTc: 400 Interpretive StatementsSINUS RHYTHMPOSSIBLE RIGHT VENTRICULAR CONDUCTION DELAY [RSR (QR) IN V1/V2]Electronically Signed On 01-22-2022 8:30:45 CDT by [facility] HospitalV 1+2 Ab+HIV1 p24 Ag SerPl Ql [id number] 07:02:58 Test Item Value Reference Range Interpretation Comments HIV 1+2 Ab+HIV1 p24 Ag SerPl Ql IA NEGATIVE Negative (test code = 29352-4) [id number] 21:23:[address] [facility] Test Date: 2335-77-27Tgw Name: DORA JOSEPH Department: 5520Patient ID: [id number] Room: 9R47Xznbdb: M Builder Beam: : 1970 Requested By: KARIN Ryan Number: [id number] Reading MD: Chiara Calles MeasurementsIntervals Jasper Rate: 72 P: 90PR:157 QRS: 87QRSD: 105 T: 90QT: 360 QTc: 384 Interpretive StatementsSINUS RHYTHMPOSSIBLE RIGHT VENTRICULAR CONDUCTION DELAY [RSR (QR) IN V1/V2]EARLY REPOLARIZATION [ST ELEVATION WITH NORMALLY INFLECTED T- WAVE]Electronically Signed On 01-17-2022 13:02:30 CDT by [facility] CollaborativeG2022-05-26 21:23:[address] [facility] Test Date: 6786-34-79Ktn Name: DORA JOSEPH Department: 5520Patient ID: [id number] Room: 6T20Hvslrg: M Builder Beam: : 1970 Requested By: JESSICA AOrder Number: [id number] Reading MD: Chiara Calles MeasurementsIntervals Jasper Rate: 72 P: 90PR: 157 QRS: 87QRSD: 105 T: 90QT: 360 QTc: 384 Interpretive StatementsSINUS RHYTHMPOSSIBLE RIGHT VENTRICULAR CONDUCTION DELAY [RSR (QR) IN V1/V2]EARLY REPOLARIZATION [ST ELEVATION WITH NORMALLY INFLECTEDT- WAVE]Electronically Signed On 01-17-2022 13:02:30 CDT by [facility] Effector Therapeuticsst. mary's hospitalweb care [facility] GmbHMultiCare Auburn Medical CenterKmtyksIFN1846-38-71 21:23:[address] [facility] Test Date: 2130-08-92Tlu Name: DORA JOSEPH Department: 5520Patient ID: [id number] Room: 8R97Vngkfa: M Builder Beam: : 1970 Requested By: KARIN BASSETT AOrder Number: [id number] Reading MD: Chiara Calles MeasurementsIntervals Jasper Rate: 72 P: 90PR:157 QRS: 87QRSD: 105 T: 90QT: 360 QTc: 384 Interpretive StatementsSINUS RHYTHMPOSSIBLE RIGHT VENTRICULAR CONDUCTION DELAY [RSR (QR) IN V1/V2]EARLY REPOLARIZATION [ST ELEVATION WITH NORMALLY INFLECTED T- WAVE]Electronically Signed On 01-17-2022 13:02:30 CDT by [facility] Centerrobert [facility] Hospitalweb care [facility] GmbHBill V[place] [address]AnlyuuCCB0582-47-35 21:23:[address] [facility] Test Date: 8680-18-74Bcs Name: DORA JOSEPH Department: 5520Patient ID: [id number] Room: 4H06Afzcvh: M Builder Beam: : 1970 Requested By: JESSICA AOrder Number: [id number] Reading MD: Chiara Calles MeasurementsIntervals Jasper Rate: 72 P: 90PR: 157 QRS: 87QRSD: 105 T: 90QT: 360 QTc: 384 Interpretive StatementsSINUS RHYTHMPOSSIBLE RIGHT VENTRICULAR CONDUCTION DELAY [RSR (QR) IN V1/V2]EARLY REPOLARIZATION [ST ELEVATION WITH NORMALLY INFLECTEDT- WAVE]Electronically Signed On 01-17-2022 13:02:30 CDT by [facility] [employer] MediaBill [place] [address]FgeosuHKQ0311-12-76 21:23:[address] [facility] Test Date: 4827-93-83Krk Name: DORA PAEZRY Department: 5520Patient ID: [id number] Room: 5P74Lnirbx: M Builder Beam: : 1970 Requested By: KARIN BASSETT AOrder Number: [id number] Reading MD: Chiara Calles MeasurementsIntervals Jasper Rate: 72 P: 90PR: 157 QRS: 87QRSD: 105 T: 90QT: 360 QTc: 384 Interpretive StatementsSINUS RHYTHMPOSSIBLE RIGHT VENTRICULAR CONDUCTION DELAY [RSR (QR) IN V1/V2]EARLY REPOLARIZATION [ST ELEVATION WITH NORMALLY INFLECTED T- WAVE]Electronically Signed On 01-17-2022 13:02:30 CDT by [facility] [employer] MediaBill [place] [address]VxvqauOJG9971-70-17 21:23:[address] [facility] Test Date: 6125-11-78Sof Name: DORA JOSEPH Department: 5520Patient ID: [id number] Room: 7P85Nqmuzl: M Builder Beam: : 1970 Requested By: KARIN BASSETT AOrder Number: [id number] Reading MD: Chiara Calles MeasurementsIntervals Jasper Rate: 72 P: 90PR: 157 QRS: 87QRSD: 105 T: 90QT: 360 QTc: 384 Interpretive StatementsSINUS RHYTHMPOSSIBLE RIGHT VENTRICULAR CONDUCTION DELAY [RSR (QR) IN V1/V2]EARLY REPOLARIZATION [ST ELEVATION WITH NORMALLY INFLECTED T- WAVE]Electronically Signed On 01-17-2022 13:02:30 CDT by [facility] ColibríKim[place] 20928022-05-26 21:23:[address] [facility] Test Date: 6764-48-35Wpm Name: DORA PAEZRY Department: 5520Patient ID: [id number] Room: 6O72Orkqzg: M Builder Beam: : 1970 Requested By: JESSICA Reevesder Number: [id number] Reading MD: Chiara Calles MeasurementsIntervals Jasper Rate: 72 P: 90PR:157 QRS: 87QRSD: 105 T: 90QT: 360 QTc: 384 Interpretive StatementsSINUS RHYTHMPOSSIBLE RIGHT VENTRICULAR CONDUCTION DELAY [RSR (QR) IN V1/V2]EARLY REPOLARIZATION [ST ELEVATION WITH NORMALLY INFLECTED T- WAVE]Electronically Signed On 01-17-2022 13:02:30 CDT by IdeatoryEKG2022-05-26 21:23:[address] [facility] Test Date: 3376-73-73Yua Name: DORA JOSEPH Department: 5520Patient ID: [id number] Room: 5K96Ixuxmd: M Builder Beam: : 1970 Requested By: KARNI BASSETT AOrder Number: [id number] Reading MD: Chiara Calles MeasurementsIntervals Jasper Rate: 72 P: 90PR: 157 QRS: 87QRSD: 105 T: 90QT: 360 QTc: 384 Interpretive StatementsSINUS RHYTHMPOSSIBLE RIGHT VENTRICULAR CONDUCTION DELAY [RSR (QR) IN V1/V2]EARLY REPOLARIZATION [ST ELEVATION WITH NORMALLY INFLECTED T- WAVE]Electronically Signed On 01-17-2022 13:02:30 CDT by TradeGigrobert University MediaCentral Arkansas Veterans Healthcare SystemAponia LaboratoriesDfpkjtUVP1511-38-37 21:23:[address] [facility] Test Date: 4732-41-09Jyb Name: DORA JOSEPH Department: 5520Patient ID: [id number] Room: 0F60Qhumwf: M Builder Beam: : 1970 Requested By: KARIN BASSETT AOrder Number: [id number] Reading MD: Chiara Calles MeasurementsIntervals Jasper Rate: 72 P: 90PR:157 QRS: 87QRSD: 105 T: 90QT: 360 QTc: 384 Interpretive StatementsSINUS RHYTHMPOSSIBLE RIGHT VENTRICULAR CONDUCTION DELAY [RSR (QR) IN V1/V2]EARLY REPOLARIZATION [ST ELEVATION WITH NORMALLY INFLECTED T- WAVE]Electronically Signed On 01-17-2022 13:02:30 CDT by [place] 06130022-05-26 21:23:[address] [facility] Test Date: 3752-92-46Ydk Name: ODRA JOSEPH Department: 5520Patient ID: [id number] Room: 3X00Fpnatd: M Builder Beam: : 1970 Requested By: JESSICA AOrder Number: [id number] Reading MD: Chiara Calles MeasurementsIntervals Jasper Rate: 72 P: 90PR:157 QRS: 87QRSD: 105 T: 90QT: 360 QTc: 384 Interpretive StatementsSINUS RHYTHMPOSSIBLE RIGHT VENTRICULAR CONDUCTION DELAY [RSR (QR) IN V1/V2]EARLY REPOLARIZATION [ST ELEVATION WITH NORMALLY INFLECTED T- WAVE]Electronically Signed On 01-17-2022 13:02:30 CDT by [place] 06130022-05-26 21:23:[address] 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 (test No code = 80378-6) ICU? (test code = No 65270-1) Symptomatic as No defined by CDC? (test code = 35392-3) Employed in No Healthcare? (test code = 45161-6) Resident in a No congregate care setting (including nursing homes, residential care for people with intellectual and developmental disabilities, psychiatric treatment facilities, group homes, board and care homes, homeless correction, foster care or other): (test code = 72643-2) SARS-CoV-2 ORF1ab NOT DETECTED Not Detected INTERPRETA TION: No Resp Ql OLENA+probe detectable levels of (test code = SARS-CoV-2 19856-7) Coronavirus (COVID-19) were present in this patient's [...] SARS-CoV-2 mole cular diagnostic assa y utilizes Process Inspector Mediated Amplification ( TMA) technology to r apidly detect the SARS -CoV-2 (COVID-19) viru s from respiratory adriana ples. In accordance with\\XC2A0\\the FDA's guidance docume nt "Policy for Diagnostic Test s for Coronavirus Disease-2019 du ring the Public Heal Emergency", ginger s test was developed, and its performance characteristics were verified by the [facility] molecular diagn ostics laboratory and is authorized for clinical diagno stic use. \\XC2A0\\Thi s laboratory is certified under the Clinical Labora tory Improvement Amendments (CLI A) as qualified to pe rform high complexity clinical labora tory testing. [facility] CREATININE POC docked [id number] 13:57:55 Test Item Value Reference Range Interpretation Comments Creatinine POC (test 2.4 mg/dL 0.6-1.3 H Physici an Notified code = 17367389) eGFR If non- Am 30 See_Comment L [Aut omated message] (test code = 84434129) The s ystem which generated this result transmit dain reference range : >=90 mL/min/1.7 3 m2. The reference r meredith was not used to interpret this result as normal/abnormal . eGFR If Am (test 35 See_Comment L [A utomated message] code = 66073353) The system which generated this result transmit dain reference range : >=90 mL/min/1.7 3 m2. The reference r meredith was not used to interpret this result as normal/abnormal . Lab Interpretation (test Abnormal code = 22269-0) [facility] CREATININE POC docked [id number] 13:57:55 Test Item Value Reference Range Interpretation Comments Creatinine POC (test 2.4 mg/dL 0.6-1.3 H Physici an Notified code = 98143205) eGFR If non- Am 30 See_Comment L [Aut omated message] (test code = 85046132) The s ystem which generated this result transmit dain reference range : >=90 mL/min/1.7 3 m2. The reference r meredith was not used to interpret this result as normal/abnormal . eGFR If Am (test 35 See_Comment L [A utomated message] code = 22239968) The system which generated this result transmit dain reference range : >=90 mL/min/1.7 3 m2. The reference r meredith was not used to interpret this result as normal/abnormal . Lab Interpretation (test Abnormal code = 13415-3) [facility] CREATININE POC docked [id number] 13:57:55 Test Item Value Reference Range Interpretation Comments Creatinine POC (test 2.4 mg/dL 0.6-1.3 H Physici an Notified code = 25266007) eGFR If non- Am 30 See_Comment L [Aut omated message] (test code = 27704569) The s ystem which generated this result transmit dain reference range : >=90 mL/min/1.7 3 m2. The reference r meredith was not used to interpret this result as normal/abnormal . eGFR If Am (test 35 See_Comment L [A utomated message] code = 19054083) The system which generated this result transmit dain reference range : >=90 mL/min/1.7 3 m2. The reference r meredith was not used to interpret this result as normal/abnormal . Lab Interpretation (test Abnormal code = 88438-7) [facility] CREATININE POC docked [id number] 13:57:55 Test Item Value Reference Range Interpretation Comments Creatinine POC (test 2.4 mg/dL 0.6-1.3 H Physici an Notified code = 03381034) eGFR If non- Am 30 See_Comment L [Aut omated message] (test code = 74297094) The s ystem which generated this result transmit dain reference range : >=90 mL/min/1.7 3 m2. The reference r meredith was not used to interpret this result as normal/abnormal . eGFR If Am (test 35 See_Comment L [A utomated message] code = 75688130) The system which generated this result transmit dain reference range : >=90 mL/min/1.7 3 m2. The reference r meredith was not used to interpret this result as normal/abnormal . Lab Interpretation (test Abnormal code = 47441-2) [facility] CREATININE POC docked [id number] 13:57:55 Test Item Value Reference Range Interpretation Comments Creatinine POC (test 2.4 mg/dL 0.6-1.3 H Physici an Notified code = 58241975) eGFR If non- Am 30 See_Comment L [Aut omated message] (test code = 30245531) The s ystem which generated this result transmit dain reference range : >=90 mL/min/1.7 3 m2. The reference r meredith was not used to interpret this result as normal/abnormal . eGFR If Am (test 35 See_Comment L [A utomated message] code = 20121813) The system which generated this result transmit dain reference range : >=90 mL/min/1.7 3 m2. The reference r meredith was not used to interpret this result as normal/abnormal . Lab Interpretation (test Abnormal code = 54853-2) [facility] CREATININE POC docked [id number] 13:57:55 Test Item Value Reference Range Interpretation Comments Creatinine POC (test 2.4 mg/dL 0.6-1.3 H Physici an Notified code = 74692034) eGFR If non- Am 30 See_Comment L [Aut omated message] (test code = 21673570) The s ystem which generated this result transmit dain reference range : >=90 mL/min/1.7 3 m2. The reference r meredith was not used to interpret this result as normal/abnormal . eGFR If Am (test 35 See_Comment L [A utomated message] code = 91141481) The system which generated this result transmit dain reference range : >=90 mL/min/1.7 3 m2. The reference r meredith was not used to interpret this result as normal/abnormal . Lab Interpretation (test Abnormal code = 57896-1) [facility] [id number] 13:57:55 Test Item Value Reference Range Interpretation Comments Creatinine POC (test 2.4 mg/dL 0.6-1.3 H Physici an Notified code = 83203760) eGFR If non- Am 30 See_Comment L [Aut omated message] (test code = 60680749) The s ystem which generated this result transmit dain reference range : >=90 mL/min/1.7 3 m2. The reference r meredith was not used to interpret this result as normal/abnormal . eGFR If Am (test 35 See_Comment L [A utomated message] code = 61402387) The system which generated this result transmit dain reference range : >=90 mL/min/1.7 3 m2. The reference r meredith was not used to interpret this result as normal/abnormal . Lab Interpretation (test Abnormal code = 93327-5) [facility] CREATININE POC docked [id number] 13:57:55 Test Item Value Reference Range Interpretation Comments Creatinine POC (test 2.4 mg/dL 0.6-1.3 H Physici an Notified code = 28609617) eGFR If non- Am 30 See_Comment L [Aut omated message] (test code = 16697783) The s ystem which generated this result transmit dain reference range : >=90 mL/min/1.7 3 m2. The reference r meredith was not used to interpret this result as normal/abnormal . eGFR If Am (test 35 See_Comment L [A utomated message] code = 74006397) The system which generated this result transmit dain reference range : >=90 mL/min/1.7 3 m2. The reference r meredith was not used to interpret this result as normal/abnormal . Lab Interpretation (test Abnormal code = 43106-7) [facility] [id number] 13:57:55 Test Item Value Reference Range Interpretation Comments Creatinine POC (test 2.4 mg/dL 0.6-1.3 H Physici an Notified code = 85805364) eGFR If non- Am 30 See_Comment L [Aut omated message] (test code = 85997908) The s ystem which generated this result transmit dain reference range : >=90 mL/min/1.7 3 m2. The reference r meredith was not used to interpret this result as normal/abnormal . eGFR If Am (test 35 See_Comment L [A utomated message] code = 51115573) The system which generated this result transmit dain reference range : >=90 mL/min/1.7 3 m2. The reference r meredith was not used to interpret this result as normal/abnormal . Lab Interpretation (test Abnormal code = 83888-7) [facility] CREATININE POC docked [id number] 13:57:55 Test Item Value Reference Range Interpretation Comments Creatinine POC (test 2.4 mg/dL 0.6-1.3 H Physici an Notified code = 65341884) eGFR If non- Am 30 See_Comment L [Aut omated message] (test code = 36677875) The s ystem which generated this result transmit dain reference range : >=90 mL/min/1.7 3 m2. The reference r meredith was not used to interpret this result as normal/abnormal . eGFR If Am (test 35 See_Comment L [A utomated message] code = 30444201) The system which generated this result transmit dain reference range : >=90 mL/min/1.7 3 m2. The reference r meredith was not used to interpret this result as normal/abnormal . Lab Interpretation (test Abnormal code = 48108-9) [facility] CREATININE POC docked [id number] 13:57:55 Test Item Value Reference Range Interpretation Comments Creatinine POC (test 2.4 mg/dL 0.6-1.3 H Physici an Notified code = 20271020) eGFR If non- Am 30 See_Comment L [Aut omated message] (test code = 07558544) The s ystem which generated this result transmit dain reference range : >=90 mL/min/1.7 3 m2. The reference r meredith was not used to interpret this result as normal/abnormal . eGFR If Am (test 35 See_Comment L [A utomated message] code = 74531598) The system which generated this result transmit dain reference range : >=90 mL/min/1.7 3 m2. The reference r meredith was not used to interpret this result as normal/abnormal . Lab Interpretation (test Abnormal code = 70860-9) [facility] CREATININE POC docked [id number] 13:57:55 Test Item Value Reference Range Interpretation Comments Creatinine POC (test 2.4 mg/dL 0.6-1.3 H Physici an Notified code = 83626797) eGFR If non- Am 30 See_Comment L [Aut omated message] (test code = 29666418) The s ystem which generated this result transmit dain reference range : >=90 mL/min/1.7 3 m2. The reference r meredith was not used to interpret this result as normal/abnormal . eGFR If Am (test 35 See_Comment L [A utomated message] code = 61547311) The system which generated this result transmit dain reference range : >=90 mL/min/1.7 3 m2. The reference r meredith was not used to interpret this result as normal/abnormal . Lab Interpretation (test Abnormal code = 01862-8) [facility] CREATININE POC docked [id number] 13:57:55 Test Item Value Reference Range Interpretation Comments Creatinine POC (test 2.4 mg/dL 0.6-1.3 H Physici an Notified code = 18367575) eGFR If non- Am 30 See_Comment L [Aut omated message] (test code = 51537556) The s ystem which generated this result transmit dain reference range : >=90 mL/min/1.7 3 m2. The reference r meredith was not used to interpret this result as normal/abnormal . eGFR If Am (test 35 See_Comment L [A utomated message] code = 36812076) The system which generated this result transmit dain reference range : >=90 mL/min/1.7 3 m2. The reference r meredith was not used to interpret this result as normal/abnormal . Lab Interpretation (test Abnormal code = 87134-4) [facility] BMP POC docked [id number] 13:48:46 Test Item Value Reference Range Interpretation Comments Sodium POC (test code = 126 mmol/L 136-145 L 52362986) Potassium POC (test code 4.4 mmol/L 3.5-5.1 = 04616508) Chloride POC (test code 100 mmol/L 98-107 = 58457257) TCO2 POC (test code = 17 mmol/L 21-32 L Physic aylin Notified 09198573) Urea Nitrogen POC (test 36 mg/dL 7-18 H code = 06134853) Glucose POC (test code = 114 mg/dL 74-106 H 78791701) Hemoglobin POC (test 11.9 g/dL 12-16 L code = 99057134) Hematocrit POC (test 35.0 % 37.0-47.0 L code = 84800642) Lab Interpretation (test Abnormal code = 31277-8) [facility] POC docked [id number] 13:48:46 Test Item Value Reference Range Interpretation Comments Sodium POC (test code = 126 mmol/L 136-145 L 32173524) Potassium POC (test code 4.4 mmol/L 3.5-5.1 = 48187505) Chloride POC (test code 100 mmol/L 98-107 = 64562889) TCO2 POC (test code = 17 mmol/L 21-32 L Physic aylin Notified 62164111) Urea Nitrogen POC (test 36 mg/dL 7-18 H code = 74018943) Glucose POC (test code = 114 mg/dL 74-106 H 54882151) Hemoglobin POC (test 11.9 g/dL 12-16 L code = 91035948) Hematocrit POC (test 35.0 % 37.0-47.0 L code = 69074395) Lab Interpretation (test Abnormal code = 64311-0) [facility] POC docked [id number] 13:48:46 Test Item Value Reference Range Interpretation Comments Sodium POC (test code = 126 mmol/L 136-145 L 16676371) Potassium POC (test code 4.4 mmol/L 3.5-5.1 = 73852802) Chloride POC (test code 100 mmol/L 98-107 = 62234984) TCO2 POC (test code = 17 mmol/L 21-32 L Physic aylin Notified 56676364) Urea Nitrogen POC (test 36 mg/dL 7-18 H code = 88007913) Glucose POC (test code = 114 mg/dL 74-106 H 85086313) Hemoglobin POC (test 11.9 g/dL 12-16 L code = 51592046) Hematocrit POC (test 35.0 % 37.0-47.0 L code = 85070007) Lab Interpretation (test Abnormal code = 87616-6) [facility] POC docked [id number] 13:48:46 Test Item Value Reference Range Interpretation Comments Sodium POC (test code = 126 mmol/L 136-145 L 97858336) Potassium POC (test code 4.4 mmol/L 3.5-5.1 = 54167673) Chloride POC (test code 100 mmol/L 98-107 = 51621069) TCO2 POC (test code = 17 mmol/L 21-32 L Physic aylin Notified 29104744) Urea Nitrogen POC (test 36 mg/dL 7-18 H code = 08289892) Glucose POC (test code = 114 mg/dL 74-106 H 97346492) Hemoglobin POC (test 11.9 g/dL 12-16 L code = 15504830) Hematocrit POC (test 35.0 % 37.0-47.0 L code = 13577960) Lab Interpretation (test Abnormal code = 92905-3) [facility] POC docked [id number] 13:48:46 Test Item Value Reference Range Interpretation Comments Sodium POC (test code = 126 mmol/L 136-145 L 84693589) Potassium POC (test code 4.4 mmol/L 3.5-5.1 = 22485648) Chloride POC (test code 100 mmol/L 98-107 = 04867637) TCO2 POC (test code = 17 mmol/L 21-32 L Physic aylin Notified 59119370) Urea Nitrogen POC (test 36 mg/dL 7-18 H code = 85888919) Glucose POC (test code = 114 mg/dL 74-106 H 41831468) Hemoglobin POC (test 11.9 g/dL 12-16 L code = 70678317) Hematocrit POC (test 35.0 % 37.0-47.0 L code = 40382641) Lab Interpretation (test Abnormal code = 45748-8) [facility] POC docked [id number] 13:48:46 Test Item Value Reference Range Interpretation Comments Sodium POC (test code = 126 mmol/L 136-145 L 68524008) Potassium POC (test code 4.4 mmol/L 3.5-5.1 = 61118966) Chloride POC (test code 100 mmol/L 98-107 = 67977704) TCO2 POC (test code = 17 mmol/L 21-32 L Physic aylin Notified 22131021) Urea Nitrogen POC (test 36 mg/dL 7-18 H code = 93002751) Glucose POC (test code = 114 mg/dL 74-106 H 49184520) Hemoglobin POC (test 11.9 g/dL 12-16 L code = 56340336) Hematocrit POC (test 35.0 % 37.0-47.0 L code = 14759888) Lab Interpretation (test Abnormal code = 41924-1) [facility] POC docked [id number] 13:48:46 Test Item Value Reference Range Interpretation Comments Sodium POC (test code = 126 mmol/L 136-145 L 44235679) Potassium POC (test code 4.4 mmol/L 3.5-5.1 = 75923654) Chloride POC (test code 100 mmol/L 98-107 = 01417478) TCO2 POC (test code = 17 mmol/L 21-32 L Physic aylin Notified 36994672) Urea Nitrogen POC (test 36 mg/dL 7-18 H code = 94582369) Glucose POC (test code = 114 mg/dL 74-106 H 16770360) Hemoglobin POC (test 11.9 g/dL 12-16 L code = 87039981) Hematocrit POC (test 35.0 % 37.0-47.0 L code = 88538516) Lab Interpretation (test Abnormal code = 47363-5) [facility] POC docked [id number] 13:48:46 Test Item Value Reference Range Interpretation Comments Sodium POC (test code = 126 mmol/L 136-145 L 11146514) Potassium POC (test code 4.4 mmol/L 3.5-5.1 = 82730294) Chloride POC (test code 100 mmol/L 98-107 = 55813954) TCO2 POC (test code = 17 mmol/L 21-32 L Physic aylin Notified 12650231) Urea Nitrogen POC (test 36 mg/dL 7-18 H code = 13524449) Glucose POC (test code = 114 mg/dL 74-106 H 06451474) Hemoglobin POC (test 11.9 g/dL 12-16 L code = 01245937) Hematocrit POC (test 35.0 % 37.0-47.0 L code = 17973678) Lab Interpretation (test Abnormal code = 24729-6) [facility] POC docked [id number] 13:48:46 Test Item Value Reference Range Interpretation Comments Sodium POC (test code = 126 mmol/L 136-145 L 81502663) Potassium POC (test code 4.4 mmol/L 3.5-5.1 = 06410582) Chloride POC (test code 100 mmol/L 98-107 = 26239137) TCO2 POC (test code = 17 mmol/L 21-32 L Physic aylin Notified 90986710) Urea Nitrogen POC (test 36 mg/dL 7-18 H code = 03422573) Glucose POC (test code = 114 mg/dL 74-106 H 92238720) Hemoglobin POC (test 11.9 g/dL 12-16 L code = 76903931) Hematocrit POC (test 35.0 % 37.0-47.0 L code = 80787391) Lab Interpretation (test Abnormal code = 37996-0) [facility] POC docked [id number] 13:48:46 Test Item Value Reference Range Interpretation Comments Sodium POC (test code = 126 mmol/L 136-145 L 65122202) Potassium POC (test code 4.4 mmol/L 3.5-5.1 = 68413507) Chloride POC (test code 100 mmol/L 98-107 = 03582802) TCO2 POC (test code = 17 mmol/L 21-32 L Physic aylin Notified 90259125) Urea Nitrogen POC (test 36 mg/dL 7-18 H code = 30766701) Glucose POC (test code = 114 mg/dL 74-106 H 12271050) Hemoglobin POC (test 11.9 g/dL 12-16 L code = 62935086) Hematocrit POC (test 35.0 % 37.0-47.0 L code = 04435440) Lab Interpretation (test Abnormal code = 67756-0) [facility] POC docked [id number] 13:48:46 Test Item Value Reference Range Interpretation Comments Sodium POC (test code = 126 mmol/L 136-145 L 59710905) Potassium POC (test code 4.4 mmol/L 3.5-5.1 = 60196461) Chloride POC (test code 100 mmol/L 98-107 = 95827958) TCO2 POC (test code = 17 mmol/L 21-32 L Physic aylin Notified 47236848) Urea Nitrogen POC (test 36 mg/dL 7-18 H code = 37541265) Glucose POC (test code = 114 mg/dL 74-106 H 21491958) Hemoglobin POC (test 11.9 g/dL 12-16 L code = 28473210) Hematocrit POC (test 35.0 % 37.0-47.0 L code = 64477517) Lab Interpretation (test Abnormal code = 88264-2) [facility] POC docked [id number] 13:48:46 Test Item Value Reference Range Interpretation Comments Sodium POC (test code = 126 mmol/L 136-145 L 23937286) Potassium POC (test code 4.4 mmol/L 3.5-5.1 = 87227883) Chloride POC (test code 100 mmol/L 98-107 = 15684912) TCO2 POC (test code = 17 mmol/L 21-32 L Physic aylin Notified 84060683) Urea Nitrogen POC (test 36 mg/dL 7-18 H code = 69928673) Glucose POC (test code = 114 mg/dL 74-106 H 59171915) Hemoglobin POC (test 11.9 g/dL 12-16 L code = 92403028) Hematocrit POC (test 35.0 % 37.0-47.0 L code = 09364892) Lab Interpretation (test Abnormal code = 58781-4) [facility] POC docked [id number] 13:48:46 Test Item Value Reference Range Interpretation Comments Sodium POC (test code = 126 mmol/L 136-145 L 66335847) Potassium POC (test code 4.4 mmol/L 3.5-5.1 = 11524693) Chloride POC (test code 100 mmol/L 98-107 = 15911823) TCO2 POC (test code = 17 mmol/L 21-32 L Physic aylin Notified 38607523) Urea Nitrogen POC (test 36 mg/dL 7-18 H code = 69788954) Glucose POC (test code = 114 mg/dL 74-106 H 73153492) Hemoglobin POC (test 11.9 g/dL 12-16 L code = 88376587) Hematocrit POC (test 35.0 % 37.0-47.0 L code = 87579987) Lab Interpretation (test Abnormal code = 57226-0) [facility] ORF1ab Resp Ql OLENA+[id number] 20:25:16 Test Item Value Reference Range Interpretation Comments Hospitalized? (test No code = 40276-2) ICU? (test code = No 72864-4) Symptomatic as No defined by CDC? (test code = 63708-5) Employed in No Healthcare? (test code = 76801-7) Resident in a No congregate care setting (including nursing homes, residential care for people with intellectual and developmental disabilities, psychiatric treatment facilities, group homes, board and care homes, homeless correction, foster care or other): (test code = 02195-6) SARS-CoV-2 ORF1ab NOT DETECTED Not Detected INTERPRETA TION: No Resp Ql OLENA+probe detectable levels of (test code = SARS-CoV-2 28415-6) Coronavirus (COVID-19) were present in this patient's [...] SARS-CoV-2 mole cular diagnostic assa y utilizes Process Inspector Mediated Amplification ( TMA) technology to r apidly detect the SARS -CoV-2 (COVID-19) viru s from respiratory adriana ples. In accordance with\\XC2A0\\the FDA's guidance docume nt "Policy for Diagnostic Test s for Coronavirus Disease-2019 du ring the Public Heal th Emergency", ginger levine test was developed, and its performance characteristics were verified by the [facility] molecular diagn ostics laboratory and is authorized for clinical diagno stic use. \\XC2A0\\Ginger s laboratory is certified under the Clinical Labora tory Improvement Amendments (CLI A) as qualified to pe rform high complexity clinical labora tory testing. [facility] VBG POC docked [id number] 11:16:15 Test Item Value Reference Range Interpretation Comments pH, Pankaj POC (test code 7.32 7.33-7.43 L = 06230329) pCO2,Pankaj POC (test code 31.0 See_Comment L [Au tomated = 82944730) message] The sy stem which generated this result transmitted reference range : 38 - 50 mmHg. The reference range was not used to interpret this result as normal/abnormal . PO2, Venous POC (BKR) 44 See_Comment L [Auto mated (test code = 56136405) messa ge] The system which generated this result transmitted reference range : 50 - 75 mm Hg. The reference range was not used to interpret this result as normal/abnormal . Ionized Calcium POC 1.24 mmol/L 1.15-1.29 (test code = 07388487) HCO3, Pankaj POC (test 16 mmol/L 22-26 L code = 61162705) TCO2 POC (test code = 17 mmol/L 21-32 L 80990826) Base Deficit, Pankaj POC -9 (test code = 05519389) Sample Type (test code IVEN Physi erik Notified = 04807851) % Sat, Pankaj POC (test 77 % code = 80439773) Lab Interpretation Abnormal (test code = 54198-2) [facility] VBG POC docked [id number] 11:16:15 Test Item Value Reference Range Interpretation Comments pH, Pankaj POC (test code 7.32 7.33-7.43 L = 46023281) pCO2,Pankaj POC (test code 31.0 See_Comment L [Au tomated = 07122989) message] The sy stem which generated this result transmitted reference range : 38 - 50 mmHg. The reference range was not used to interpret this result as normal/abnormal . PO2, Venous POC (BKR) 44 See_Comment L [Auto mated (test code = 33688588) Ordoroa ge] The system which generated this result transmitted reference range : 50 - 75 mm Hg. The reference range was not used to interpret this result as normal/abnormal . Ionized Calcium POC 1.24 mmol/L 1.15-1.29 (test code = 61973338) HCO3, Pankaj POC (test 16 mmol/L 22-26 L code = 93921313) TCO2 POC (test code = 17 mmol/L 21-32 L 29817027) Base Deficit, Pankaj POC -9 (test code = 94346665) Sample Type (test code IVEN Physi erik Notified = 95575322) % Sat, Pankaj POC (test 77 % code = 79054190) Lab Interpretation Abnormal (test code = 97899-2) [facility] VBG POC docked [id number] 11:16:15 Test Item Value Reference Range Interpretation Comments pH, Pankaj POC (test code 7.32 7.33-7.43 L = 80721011) pCO2,Pankaj POC (test code 31.0 See_Comment L [Au tomated = 10025137) message] The sy stem which generated this result transmitted reference range : 38 - 50 mmHg. The reference range was not used to interpret this result as normal/abnormal . PO2, Venous POC (BKR) 44 See_Comment L [Auto mated (test code = 68956091) Ordoroa ge] The system which generated this result transmitted reference range : 50 - 75 mm Hg. The reference range was not used to interpret this result as normal/abnormal . Ionized Calcium POC 1.24 mmol/L 1.15-1.29 (test code = 00879321) HCO3, Pankaj POC (test 16 mmol/L 22-26 L code = 74824642) TCO2 POC (test code = 17 mmol/L 21-32 L 77642195) Base Deficit, Pankaj POC -9 (test code = 91732223) Sample Type (test code IVEN Physi erik Notified = 35995821) % Sat, Pankaj POC (test 77 % code = 35376886) Lab Interpretation Abnormal (test code = 95615-8) [facility] VBG POC docked [id number] 11:16:15 Test Item Value Reference Range Interpretation Comments pH, Pankaj POC (test code 7.32 7.33-7.43 L = 62965335) pCO2,Pankaj POC (test code 31.0 See_Comment L [Au tomated = 99930128) message] The sy stem which generated this result transmitted reference range : 38 - 50 mmHg. The reference range was not used to interpret this result as normal/abnormal . PO2, Venous POC (BKR) 44 See_Comment L [Auto mated (test code = 48574846) messa ge] The system which generated this result transmitted reference range : 50 - 75 mm Hg. The reference range was not used to interpret this result as normal/abnormal . Ionized Calcium POC 1.24 mmol/L 1.15-1.29 (test code = 17631859) HCO3, Pankaj POC (test 16 mmol/L 22-26 L code = 47182069) TCO2 POC (test code = 17 mmol/L 21-32 L 86539844) Base Deficit, Pankaj POC -9 (test code = 76401782) Sample Type (test code IVFLORENCE Physi erik Notified = 39285353) % Sat, Pankaj POC (test 77 % code = 24400913) Lab Interpretation Abnormal (test code = 28235-2) [facility] VBG POC docked [id number] 11:16:15 Test Item Value Reference Range Interpretation Comments pH, Pankaj POC (test code 7.32 7.33-7.43 L = 61750678) pCO2,Pankaj POC (test code 31.0 See_Comment L [Au tomated = 56970313) message] The sy stem which generated this result transmitted reference range : 38 - 50 mmHg. The reference range was not used to interpret this result as normal/abnormal . PO2, Venous POC (BKR) 44 See_Comment L [Auto mated (test code = 20135443) messa ge] The system which generated this result transmitted reference range : 50 - 75 mm Hg. The reference range was not used to interpret this result as normal/abnormal . Ionized Calcium POC 1.24 mmol/L 1.15-1.29 (test code = 92565433) HCO3, Pankaj POC (test 16 mmol/L 22-26 L code = 53534801) TCO2 POC (test code = 17 mmol/L 21-32 L 23208089) Base Deficit, Pankaj POC -9 (test code = 18707628) Sample Type (test code STEPAN valencia Notified = 02595427) % Sat, Pankaj POC (test 77 % code = 71613870) Lab Interpretation Abnormal (test code = 10495-0) [facility] VBG POC docked [id number] 11:16:15 Test Item Value Reference Range Interpretation Comments pH, Pankaj POC (test code 7.32 7.33-7.43 L = 19385225) pCO2,Pankaj POC (test code 31.0 See_Comment L [Au tomated = 87623044) message] The sy stem which generated this result transmitted reference range : 38 - 50 mmHg. The reference range was not used to interpret this result as normal/abnormal . PO2, Venous POC (BKR) 44 See_Comment L [Auto mated (test code = 65521893) messa ge] The system which generated this result transmitted reference range : 50 - 75 mm Hg. The reference range was not used to interpret this result as normal/abnormal . Ionized Calcium POC 1.24 mmol/L 1.15-1.29 (test code = 21652808) HCO3, Pankaj POC (test 16 mmol/L 22-26 L code = 13495012) TCO2 POC (test code = 17 mmol/L 21-32 L 31313515) Base Deficit, Pankaj POC -9 (test code = 13947690) Sample Type (test code STEPAN valencia Notified = 24057197) % Sat, Pankaj POC (test 77 % code = 47881621) Lab Interpretation Abnormal (test code = 58800-5) [facility] VBG POC docked [id number] 11:16:15 Test Item Value Reference Range Interpretation Comments pH, Pankaj POC (test code 7.32 7.33-7.43 L = 68175571) pCO2,Pankaj POC (test code 31.0 See_Comment L [Au tomated = 02503951) message] The sy stem which generated this result transmitted reference range : 38 - 50 mmHg. The reference range was not used to interpret this result as normal/abnormal . PO2, Venous POC (BKR) 44 See_Comment L [Auto mated (test code = 03667780) messa ge] The system which generated this result transmitted reference range : 50 - 75 mm Hg. The reference range was not used to interpret this result as normal/abnormal . Ionized Calcium POC 1.24 mmol/L 1.15-1.29 (test code = 10924584) HCO3, Pankaj POC (test 16 mmol/L 22-26 L code = 46793999) TCO2 POC (test code = 17 mmol/L 21-32 L 73540858) Base Deficit, Pankaj POC -9 (test code = 67224835) Sample Type (test code IVFLORENCE Physi erik Notified = 91796937) % Sat, Pankaj POC (test 77 % code = 99360415) Lab Interpretation Abnormal (test code = 00001-1) [facility] VBG POC docked [id number] 11:16:15 Test Item Value Reference Range Interpretation Comments pH, Pankaj POC (test code 7.32 7.33-7.43 L = 54835839) pCO2,Pankaj POC (test code 31.0 See_Comment L [Au tomated = 07539581) message] The sy stem which generated this result transmitted reference range : 38 - 50 mmHg. The reference range was not used to interpret this result as normal/abnormal . PO2, Venous POC (BKR) 44 See_Comment L [Auto mated (test code = 80590137) Envis ge] The system which generated this result transmitted reference range : 50 - 75 mm Hg. The reference range was not used to interpret this result as normal/abnormal . Ionized Calcium POC 1.24 mmol/L 1.15-1.29 (test code = 38588845) HCO3, Pankaj POC (test 16 mmol/L 22-26 L code = 79793538) TCO2 POC (test code = 17 mmol/L 21-32 L 07252521) Base Deficit, Pankaj POC -9 (test code = 00585499) Sample Type (test code IVFLORENCE Physi erik Notified = 22545277) % Sat, Pankaj POC (test 77 % code = 97354672) Lab Interpretation Abnormal (test code = 27489-7) [facility] VBG POC docked [id number] 11:16:15 Test Item Value Reference Range Interpretation Comments pH, Pankaj POC (test code 7.32 7.33-7.43 L = 44149732) pCO2,Pankaj POC (test code 31.0 See_Comment L [Au tomated = 34377937) message] The sy stem which generated this result transmitted reference range : 38 - 50 mmHg. The reference range was not used to interpret this result as normal/abnormal . PO2, Venous POC (BKR) 44 See_Comment L [Auto mated (test code = 96782876) messa ge] The system which generated this result transmitted reference range : 50 - 75 mm Hg. The reference range was not used to interpret this result as normal/abnormal . Ionized Calcium POC 1.24 mmol/L 1.15-1.29 (test code = 45235388) HCO3, Pankaj POC (test 16 mmol/L 22-26 L code = 61457939) TCO2 POC (test code = 17 mmol/L 21-32 L 97857220) Base Deficit, Pankaj POC -9 (test code = 52466783) Sample Type (test code IVEN Physi erik Notified = 70598088) % Sat, Pankaj POC (test 77 % code = 31087853) Lab Interpretation Abnormal (test code = 40052-9) [facility] VBG POC docked [id number] 11:16:15 Test Item Value Reference Range Interpretation Comments pH, Pankaj POC (test code 7.32 7.33-7.43 L = 06044686) pCO2,Pankaj POC (test code 31.0 See_Comment L [Au tomated = 62361129) message] The sy stem which generated this result transmitted reference range : 38 - 50 mmHg. The reference range was not used to interpret this result as normal/abnormal . PO2, Venous POC (BKR) 44 See_Comment L [Auto mated (test code = 81059164) Ordoroa ge] The system which generated this result transmitted reference range : 50 - 75 mm Hg. The reference range was not used to interpret this result as normal/abnormal . Ionized Calcium POC 1.24 mmol/L 1.15-1.29 (test code = 68170424) HCO3, Pankaj POC (test 16 mmol/L 22-26 L code = 46439274) TCO2 POC (test code = 17 mmol/L 21-32 L 51952391) Base Deficit, Pankaj POC -9 (test code = 08888752) Sample Type (test code IVEN Physi erik Notified = 20127614) % Sat, Pankaj POC (test 77 % code = 85566539) Lab Interpretation Abnormal (test code = 76190-9) [facility] VBG POC docked [id number] 11:16:15 Test Item Value Reference Range Interpretation Comments pH, Pankaj POC (test code 7.32 7.33-7.43 L = 89927956) pCO2,Pankaj POC (test code 31.0 See_Comment L [Au tomated = 79123902) message] The sy stem which generated this result transmitted reference range : 38 - 50 mmHg. The reference range was not used to interpret this result as normal/abnormal . PO2, Venous POC (BKR) 44 See_Comment L [Auto mated (test code = 94320925) [employer]] The system which generated this result transmitted reference range : 50 - 75 mm Hg. The reference range was not used to interpret this result as normal/abnormal . Ionized Calcium POC 1.24 mmol/L 1.15-1.29 (test code = 90412059) HCO3, Pankaj POC (test 16 mmol/L 22-26 L code = 14226353) TCO2 POC (test code = 17 mmol/L 21-32 L 87346882) Base Deficit, Pankaj POC -9 (test code = 34598408) Sample Type (test code STEPAN Physi erik Notified = 00696747) % Sat, Pankaj POC (test 77 % code = 21359844) Lab Interpretation Abnormal (test code = 51803-6) [facility] VBG POC docked [id number] 11:16:15 Test Item Value Reference Range Interpretation Comments pH, Pankaj POC (test code 7.32 7.33-7.43 L = 95652131) pCO2,Pankaj POC (test code 31.0 See_Comment L [Au tomated = 61413113) message] The sy stem which generated this result transmitted reference range : 38 - 50 mmHg. The reference range was not used to interpret this result as normal/abnormal . PO2, Venous POC (BKR) 44 See_Comment L [Auto mated (test code = 51874052) Ordoroa ge] The system which generated this result transmitted reference range : 50 - 75 mm Hg. The reference range was not used to interpret this result as normal/abnormal . Ionized Calcium POC 1.24 mmol/L 1.15-1.29 (test code = 89081501) HCO3, Pankaj POC (test 16 mmol/L 22-26 L code = 67339539) TCO2 POC (test code = 17 mmol/L 21-32 L 96675272) Base Deficit, Pankaj POC -9 (test code = 44942492) Sample Type (test code IVEN Physi erik Notified = 78812921) % Sat, Pankaj POC (test 77 % code = 17600268) Lab Interpretation Abnormal (test code = 37505-0) [facility] VBG POC docked [id number] 11:16:15 Test Item Value Reference Range Interpretation Comments pH, Pankaj POC (test code 7.32 7.33-7.43 L = 02792219) pCO2,Pankaj POC (test code 31.0 See_Comment L [Au tomated = 64404857) message] The sy stem which generated this result transmitted reference range : 38 - 50 mmHg. The reference range was not used to interpret this result as normal/abnormal . PO2, Venous POC (BKR) 44 See_Comment L [Auto mated (test code = 41149088) messa ge] The system which generated this result transmitted reference range : 50 - 75 mm Hg. The reference range was not used to interpret this result as normal/abnormal . Ionized Calcium POC 1.24 mmol/L 1.15-1.29 (test code = 60036153) HCO3, Pankaj POC (test 16 mmol/L 22-26 L code = 65445031) TCO2 POC (test code = 17 mmol/L 21-32 L [id number]) Base Deficit, Pankaj POC -9 (test code = 54329269) Sample Type (test code IVEN Physi erik Notified = 58930542) % Sat, Pankaj POC (test 77 % code = 83340603) Lab Interpretation Abnormal (test code = 78548-4) [place] [address] LEAD [id number] 20:59:5612 LEAD EKG FOR [facility] Test Date: 4907-63-35Esu Name: DORA JOSEPH Department: 5520Patient ID: [id number] Room: Gender: M Builder Beam: [id number]: 1970 Requested By: TANJA Garza Number: [id number] Reading MD: Chiara Calles MeasurementsIntervals Jasper Rate: 75 P: 84PR: 153 QRS: 67QRSD: 104 T: 77QT: 344 QTc: 373 Interpretive StatementsSINUS RHYTHMPOSSIBLE RIGHT VENTRICULAR CONDUCTION DELAY [RSR (QR) IN V1/V2]Electronically Signed On 01-09-2022 8:27:19 CDT by ipnexus12 LEAD [id number] 20:59:[address] [facility] Test Date: 1609-44-91Snc Name: DORA JOSEPH Department: 5520Patient ID: [id number] Room: Gender: M Builder Beam: [id number]: 1970 Requested By: TANJA Garza Number: [id number] Reading MD: Chiara Calles MeasurementsIntervals Jasper Rate: 75 P: 84PR: 153 QRS: 67QRSD: 104 T: 77QT: 344 QTc: 373 Interpretive StatementsSINUS RHYTHMPOSSIBLE RIGHT VENT RICULAR CONDUCTION DELAY [RSR (QR) IN V1/V2]Electronically Signed On 01-09-2022 8:27:19 CDT by ipnexus12 LEAD [id number] 20:59:[address] [facility] Test Date: 6858-58-43Nah Name: DORA JOSEPH Department: 5520Patient ID: [id number] Room: Gender: M Builder Beam: [id number]: 1970 Requested By: TANJA Garza Number: [id number] Reading MD: Chiara Calles MeasurementsIntervals Jasper Rate: 75 P: 84PR: 153 QRS: 67QRSD: 104 T: 77QT: 344 QTc: 373 Interpretive StatementsSINUS RHYTHMPOSSIBLE RIGHT VENTRICULAR CONDUCTION DELAY [RSR (QR) IN V1/V2]Electronically Signed On 01-09-2022 8:27:19 CDT by ipnexus12 LEAD [id number] 20:59:[address] [facility] Test Date: 5484-98-03Mki Name: DORA JOSEPH Department: 5520Patient ID: [id number] Room: Gender: M Builder Beam: [id number]: 1970 Requested By: TANJA Garza Number: [id number] Reading MD: Chiara Calles MeasurementsIntervals Jasper Rate: 75 P: 84PR : 153 QRS: 67QRSD: 104 T: 77QT: 344 QTc: 373 Interpretive StatementsSINUS RHYTHMPOSSIBLE RIGHT VENTRICULAR CONDUCTION DELAY [RSR (QR) IN V1/V2]Electronically Signed On 01-09-2022 8:27:19 CDT by TradeGigrobertWhere Was it Filmed12 LEAD [id number] 20:59:[address] [facility] Test Date: 2719-33-36Bkz Name: DORA NEOTSU Department: 5520Patient ID: [id number] Room: Gender: M Builder Beam: [id number]: 1970 Requested By: TANJA Garza Number: [id number] Reading MD: Chiara Calles MeasurementsIntervals Jasper Rate: 75 P: 84PR: 153 QRS: 67QRSD: 104 T: 77QT: 344 QTc: 373 Interpretive StatementsSINUS RHYTHMPOSSIBLE RIGHT VENTRICULAR CONDUCTION DELAY [RSR (QR) IN V1/V2]Electronically Signed On 01-09-2022 8:27:19 CDT by ipnexus12 LEAD [id number] 20:59:[address] [facility] Test Date: 2553-67-39Vcz Name: DORA NEOTSU Department: 5520Patient ID: [id number] Room: Gender: M Builder Beam: [id number]: 1970 Requested By: TANJA Garza Number: [id number] Reading MD: Chiara Calles MeasurementsIntervals Jasper Rate: 75 P: 84PR: 153 QRS: 67QRSD: 104 T: 77QT: 344 QTc: 373 Interpretive StatementsSINUS RHYTHMPOSSIBLE RIGHT VENTR ICULAR CONDUCTION DELAY [RSR (QR) IN V1/V2]Electronically Signed On 01-09-2022 8:27:19 CDT by [facility]st[facility] Where Was it Filmed12 LEAD [id number] 20:59:[address] [facility] Test Date: 3334-68-48Vqc Name: [facility] Department: 5520Patient ID: [id number] Room: Gender: M Builder Beam: [id number]: 1970 Requested By: TANJA Garza Number: [id number] Reading MD: Chiara Calles MeasurementsIntervals Jasper Rate: 75 P: 84PR: 153 QRS: 67QRSD: 104 T: 77QT: 344 QTc: 373 Interpretive StatementsSINUS RHYTHMPOSSIBLE RIGHT VENTRICULAR CONDUCTION DELAY [RSR (QR) IN V1/V2]Electronically Signed On 01-09-2022 8:27:19 CDT by TradeGigrobert Where Was it Filmed12 LEAD [id number] 20:59:[address] [facility] Test Date: 3080-73-28Kyt Name: DORA PAEZRY Department: 5520Patient ID: [id number] Room: Gender: M Builder Beam: [id number]: 1970 Requested By: TANJA Garza Number: [id number] Reading MD: Chiara Calles MeasurementsIntervals Jasper Rate: 75 P: 84PR: 153 QRS: 67QRSD: 104 T: 77QT: 344 QTc: 373 Interpretive StatementsSINUS RHYTHMPOSSIBLE RIGHT VENTRICULAR CONDUCTION DELAY [RSR (QR) IN V1/V2]Electronically Signed On 01-09-2022 8:27:19 CDT by ipnexus12 LEAD [id number] 20:59:[address] [facility] Test Date: 8669-68-20Xyy Name: DORA PAEZRY Department: 5520Patient ID: [id number] Room: Gender: M Builder Beam: [id number]: 1970 Requested By: TANJA Garza Number: [id number] Reading MD: Chiara Calles MeasurementsIntervals Jasper Rate: 75 P: 84PR: 153 QRS: 67QRSD: 104 T: 77QT: 344 QTc: 373 Interpretive StatementsSINUS RHYTHMPOSSIBLE RIGHT VENTRICULAR CONDUCTION DELAY [RSR (QR) IN V1/V2]Electronically Signed On 01-09-2022 8:27:19 CDT by Ideatory12 LEAD [id number] 20:59:[address] [facility] Test Date: 7093-60-33Uex Name: DORA JOSEPH Department: 5520Patient ID: [id number] Room: Gender: M Builder Beam: [id number]: 1970 Requested By: TANJA Garza Number: [id number] Reading MD: Chiara Calles MeasurementsIntervals Jasper Rate: 75 P: 84PR: 153 QRS: 67QRSD: 104 T: 77QT: 344 QTc: 373 Interpretive StatementsSINUS RHYTHMPOSSIBLE RIGHT VENTR ICULAR CONDUCTION DELAY [RSR (QR) IN V1/V2]Electronically Signed On 01-09-2022 8:27:19 CDT by TradeGigrobert Effector [employer] [facility] [employer]Com[employer] [place] [address] LEAD [id number] 20:59:[address] [facility] Test Date: 1184-02-82Lzs Name: DORA JOSEPH Department: 5520Patient ID: [id number] Room: Gender: M Builder Beam: [id number]: 1970 Requested By: TANJA Garza Number: [id number] Reading MD: Chiara Calles MeasurementsIntervals Jasper Rate: 75 P: 84PR: 153 QRS: 67QRSD: 104 T: 77QT: 344 QTc: 373 Interpretive StatementsSINUS RHYTHMPOSSIBLE RIGHT VENTRICULAR CONDUCTION DELAY [RSR (QR) IN V1/V2]Electronically Signed On 01-09-2022 8:27:19 CDT by Chiara Effector [employer] [facility] [employer]Com[employer]PriceSpot [place] [address] LEAD [id number] 20:59:[address] [facility] Test Date: 1204-77-80Npu Name: DORA NEOTSU Department: 5520Patient ID: [id number] Room: Gender: M Builder Beam: [id number]: 1970 Requested By: TANJA Garza Number: [id number] Reading MD: Chiara Calles MeasurementsIntervals Jasper Rate: 75 P: 84PR: 153 QRS: 67QRSD: 104 T: 77QT: 344 QTc: 373 Interpretive StatementsSINUS RHYTHMPOSSIBLE RIGHT VENTRICULAR CONDUCTION DELAY [RSR (QR) IN V1/V2]Electronically Signed On 01-09-2022 8:27:19 CDT by [facility] [place] [address] LEAD [id number] 20:59:5612 LEAD EKG FOR [facility] Test Date: 8084-60-22Byl Name: DORA JOSEPH Department: 5520Patient ID: [id number] Room: Gender: M Builder Beam: [id number]: 1970 Requested By: TANJA Garza Number: [id number] Reading MD: Chiara Calles MeasurementsIntervals Jasper Rate: 75 P: 84PR: 153 QRS: 67QRSD: 104 T: 77QT: 344 QTc: 373 Interpretive StatementsSINUS RHYTHMPOSSIBLE RIGHT VENTRICULAR CONDUCTION DELAY [RSR (QR) IN V1/V2]Electronically Signed On 01-09-2022 8:27:19 CDT by [facility] Effector [facility] care [facility] W/AUTO [id number] 23:52:00 Test Item Value Reference Range Interpretation [...] = MX#) 0.8 k/mm3 0.1-0.8 N LIVER [id number] 20:04:00 Test Item Value Reference Range Interpretation Comments TOTAL PROTEIN (test code 6.7 GM/DL 5.0-8.0 N Per formed by = PROT) 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 [facility] ed Ctr ALBUMIN (test code = [...] 67 UNITS/L 25-125 N LYNDSEY) BASIC METABOLIC [id number] 19:54:00 Test Item Value Reference Range Interpretation [...] POCGLU) 81 MG/DL - CT ABD PELVIS W/[id number] 00:00:00 [facility] SHANA LAKEName: MARIA ISABEL JOSEPH : 1970 Sex: M Name: MARIA ISABEL JOSEPH FSED : 1970 Age/S: 51 / M [address] [facility] Unit #: [id number] Loc: [place] [address] Phys: Raffaele Levi MD Acct: [id number] Dis Date: Status: PRE ER PHONE #: Exam Date: 09/23/20211999 FAX #: Reason: RUQ PAIN, VOMITING EXAMS: CPT CODE: [id number] CT ABD PELVIS W/CONT 45814 PROCEDURE INFORMATION: Exam: CT Abdomen And Pelvis [...] : 1970 Age/S: 51 / M [address] [facility] #: [id number] Loc: [place] [address] Phys: Raffaele Levi MD Acct: [id number] Dis Date: Status: PRE ER PHONE #: Exam Date: 09/23/20211999 FAX #: Reason: RUQ PAIN, VOMITING EXAMS: CPT CODE: [id number] CT ABD PELVIS W/CONT 45278 <Continued> abdominal small bowel loops may relate [...] (2049) PAGE 2 Signed Report COMPREHENSIVE METABOLIC [id number] 11:51:00 Test Item Value Reference Range Interpretation [...] Units/L 50.0-136.0 N code = ALKP) PROTHROMBIN [id number] 11:41:00 Test Item Value Reference Range Interpretation Comments PROTHROMBIN TIME 10.9 SECONDS 9.9-12.8 N PATIENT (test code = PTP) INTERNATIONAL NORMAL 0.9 0.89-1.14 N THE INR IS TO BE USED RATIO (test code = ONLY FOR MONITORING INR) ORAL ANTICOAGULANTTH ERAPY. 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 [id number] 05:21:00 Test Item Value Reference Range Interpretation [...] (test code = POCGLU) 92 MG/DL GLUCOSE [id number] 05:19:00 Test Item Value Reference Range Interpretation Comments GLUCOSE BEDSIDE (test 51 MG/DL 70-110 L [facility] med by certified code = GLUBED) 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 CBC W/AUTO [id number] 14:00:00 Test Item Value Reference Range Interpretation [...] MX#) 0.2 k/mm3 0.1-0.8 N CBC W/AUTO [id number] 00:07:00 Test Item Value Reference Range Interpretation [...] = LY#) 2.4 K/uL 1.0-3.8 N LIVER [id number] 16:14:00 Test Item Value Reference Range Interpretation Comments TOTAL PROTEIN (test code 7.5 GM/DL 5.0-8.0 N Per formed by = PROT) 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 [facility] ed Ctr ALBUMIN (test code = [...] 65 UNITS/L 25-125 N LYNDSEY) BASIC METABOLIC [id number] 16:07:00 Test Item Value Reference Range Interpretation [...] POCGLU) 96 MG/DL - XR CHEST 1 [id number] 00:00:00 [facility] : 1970 Sex: MFAX: Steve Urias MD [phone] [place]: [place] St: PRE Name: DORA JOSEPH FSED : 1970 Age/S: 51/M [address] [facility] Unit #: [id number] Loc: [place] [address] Phys: Steve Urias MD Acct: [id number] Dis Date: Status: PRE ER PHONE #: Exam Date: 06/27/2021 9899 FAX #: Reason: Abdominal Pain EXAMS: CPT CODE: [id number] XR CHEST 1 V 52517 PROCEDURE INFORMATION: Exam: XR Chest Exam date [...] diaphragm. No acute cardiopulmonary findings otherwise.. at 7708 Reported and signed by: Андрей Mar M.D. CC: Steve Urias MD Technologist: RT Alanna(R)(CT) Trnscrd Date/Time/By: 06/27/2021 (1551) : By: GarettJG42 Orig Print D/T: S: 06/27/2021 (4932) PAGE 1 Signed Report- CT ABD PELVIS W/[id number] 00:00:00 [facility] SHANA LAKEName: DORA JOSEPH : 1970 Sex: MName: DORA JOSEPH FSED : 1970 Age/S: 51 / M [address] [facility] Unit #: [id number] Loc: [place] [address] Phys: Steve Urias MD Acct: [id number] Dis Date: Status: KISHOR ER PHONE #: Exam Date: 06/27/2021 2118 FAX #: Reason: pain in region of colostomy EXAMS: CPT CODE: [id number] CT ABD PELVIS W/CONT 99682 PROCEDURE INFORMATION: Exam: CT Abdomen And Pelvis [...] : 1970 Age/S: 51 / M [address] [facility] Unit #: [id number] Loc: [place] [address] Phys: Steve Urias MD Acct: [id number] Dis Date: Status: REG ER PHONE #: Exam Date: 06/27/2021 1624 FAX #: Reason: pain in region of colostomy EXAMS: CPT CODE: [id number] CT ABD PELVIS W/CONT 22667 <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 There is no evidence of associated intestinal obstruction. 2. No additional acute CT abnormalities of the abdomen or pelvis are identified. SL:131 at 1650 Reported and signed by: Marco Raman M.D. CC: Steve Urias MD Technologist:RT Alanna(R)(CT) CTDI: DLP: Trnscb Date/Time: 06/27/2021 (1649) t.FLEXR.DMM Orig Print D/T: S: 06/27/2021 (165) PAGE 2 Signed ReportCBC W/AUTO [id number] 09:20:00 Test Item Value Reference Range Interpretation [...] (test code NO = MDIFF) CBC W/AUTO [id number] 08:59:00 Test Item Value Reference Range Interpretation [...] REQUIRED (test code = MDIFF) BASIC METABOLIC [id number] 08:21:00 Test Item Value Reference Range Interpretation [...] 8.4 mg/dL 8.0-10.5 N CA) BASIC METABOLIC [id number] 08:34:00 Test Item Value Reference Range Interpretation [...] 8.4 mg/dL 8.0-10.5 N CA) CBC W/AUTO [id number] 07:41:00 Test Item Value Reference Range Interpretation [...] = MDIFF) UA RFLX MICR CULT IF [id number] 10:10:00 Test Item Value Reference Range Interpretation [...] Suprapubic Pain Temperature > 100.4 FSpecimen Description: [facility] STREAMBASIC METABOLIC [id number] 04:13:00 Test Item Value Reference Range Interpretation [...] mg/dL 8.0-10.5 N CA) Coronavirus 2018 nCoV [id number] 22:03:00 Test Item Value Reference Range Interpretation Comments Coronavirus 2019 Negative Negative Performed b y certified nCoV Bedside (torque tester at [facility] code = CtrNegative res ults should [id number]) be treated as presumptive and, ifinconsis tent with clinical signs and symptoms or necessaryfor patient management, fifi uld be tested with an alternativemole cular assay. Negative result s do not preclude LOVU-VtD-7pmnqw tion and should not be u sed as the sole basis forp atient management deci sions. Negative result s should beconsidered in the context of a patient's recent exposures,histo ry, presence of clinical sig ns and symptoms consis tentwith COVID-19. CBC W/AUTO [id number] 21:11:00 Test Item Value Reference Range Interpretation [...] MX#) 0.6 k/mm3 0.1-0.8 N BASIC METABOLIC [id number] 19:00:00 Test Item Value Reference Range Interpretation [...] POCGLU) 92 MG/DL - CT ABD PELVIS W/[id number] 00:00:00 [facility]A JOSEPH : 1970 Sex: MName: DORA JOSEPH FSED : 1970 Age/S: 51 / M [address] [facility] Unit #: [id number] Loc: [place] [address] Phys: Marcello Benoit MD Acct: [id number] Dis Date: Status: REG ERPHONE #: Exam Date: 04/28/20211913 FAX #: Reason: epigastric and LLQ pain, R-sided colostomy EXAMS: CPT CODE: [id number] CT ABD PELVIS W/CONT 06673 PROCEDURE INFORMATION: Exam: CT Abdomen And Pelvis [...] : 1970 Age/S: 51 / M [address] [facility] Unit #: [id number] Loc: [place] [address] Phys: Marcello Benoit MD Acct: [id number] Dis Date: Status: REG ER PHONE #: Exam Date: 04/28/2021 9409 FAX #: Reason: epigastric and LLQ pain, R-sided colostomy EXAMS: CPT CODE: [id number] CT ABD PELVIS W/CONT 71956 <Continued> Reproductive: Unremarkable as visualized. Bones/joints: Unremarkable. [...] PAGE 2 Signed Report- XR ABDOMEN 1 [id number] 12:53:00 [facility] 1970 Age/S: 50 / M [address] [place] Unit #: [id number] Loc: [place] [address] 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 Acct: [id number] Dis Date: Status: ADM IN PHONE#: [phone] Exam Date: 02/25/2020 1036 FAX #: Reason: abdominal distention EXAMS: CPT: [id number] ABDOMEN 1 V 57674 Fluoro Time: DAP (Gy m2): Air Kerma [...] MD PAGE1 Signed Report Name: DORA JOSEPH [facility] : 1970 Age/S: 50 / M [address] [place] Unit #: [id number] Loc: [place] [address] 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 BUSINESS INTELLIGENCE REPORTING ANALYST Acct: [id number] Dis Date: Status: ADM IN PHONE #: [phone] Exam Date: 02/25/2020 1036 FAX #: Reason: abdominal distention EXAMS: CPT: [id number] XR ABDOMEN 1 V 96826 Fluoro Time: DAP (Gy m2): Air Kerma (mGy): <Continued> Technologist: Nichole Dill, RT(R) Trnscb Date/Time: 02/25/2020 (6313) tDARWINRLisethEFM1 Orig Print D/T: S: 02/25/2020 (3078) PAGE 2 Signed Report COMPREHENSIVE METABOLIC [id number] 08:20:00 Test Item Value Reference Range Interpretation [...] 50-136 L TOTAL (test code = ALKP) [id number] 08:20:00 Test Item Value Reference Range Interpretation Comments MAGNESIUM (test code = MAG) 2.2 MG/DL 1.8-2.4 N THYROID STIMULATING [id number] 08:20:00 Test Item Value Reference Range Interpretation Comments THYROID STIMULATING HORMONE 5.430 mcIU/ML 0.340-4.820 H (test code = TSH) CBC W/AUTO [id number] 07:55:00 Test Item Value Reference Range Interpretation [...] N NRBC#) UA RFLX MICR CULT IF [id number] 12:29:00 Test Item Value Reference Range Interpretation [...] culture: Suprapubic PainUA RFLX MICR CULT IF [id number] 12:29:00 Test Item Value Reference Range Interpretation [...] for culture: Suprapubic PainCOVID 19 Asymptomatic IH [id number] 22:09:00 Test Item Value Reference Range Interpretation [...] tent with COVID-19. - CT ABD PELVIS W/[id number] 21:10:00 Name: DORA JOSEPH [facility] : 1970 Age/S: 50 / M [address] [place] Unit #: [id number] Loc: [place] [address] Phys: Evin Castellanos MD Acct: [id number] Dis Date: Status: REG ERPHONE #: [phone] Exam Date: 02/23/20202047 FAX #: Reason: diffuse abdomen pain and distention EXAMS: CPT: [id number] CT ABD PELVIS W/CONT 93345 EXAM: - CT ABD PELVIS W/CONT LOCATION: [...] Report (CONTINUED) Name: DORA JOSEPH [facility] : 1970 Age/S: 50 / M [address] [facility] [place] Unit #: [id number] Loc: [place] [address] Phys: Evin Castellanos MD Acct: [id number] Dis Date: Status: REG ER PHONE #: [phone] Exam Date: 02/23/20202047 FAX #: Reason: diffuse abdomen pain and distention EXAMS: CPT: [id number] CT ABD PELVIS W/CONT 21421 <Continued> CT. No bowel wall thickening or pneumatosis. There arepostsurgical change of appendectomy. GENITOURINARY ORGANS: Prostatic calcifications are present. Prostate is normal in size. PELVIC FREE FLUID/FLUID COLLECTION: None. URINARY BLADDER: Unremarkable. EXTERNAL SOFT TISSUE: No abnormalities. BONES: Regional osseous structures are intact. Unchanged lucentlesion within the L4 vertebral body which may reflect a hemangioma. IMPRESSION: 1. Unchanged chroniccolonic dilatation when compared to multiple prior KUBs and CT. No evidence of stricture, mass or volvulus. No evidence of small bowel obstruction. at 2109 Reported and signed by: Marybel José M.D. CC: Susana Meza SIGN DESIGNER; Carl Flowers Technologist:Rudy Zuniga, RT(R)(CT)(MRI) CTDI: DLP: Trnscb Date/Time: 02/23/2020 (2109) t.SDR.TH15 Orig Print D/T: S: 02/23/2020 (2112) PAGE 2 Signed Report- XR CHEST 1 [id number] 21:03:00 Name: DORA JOSEPH [facility] : 1970 Age/S: 50 / M [address] [address] [place] Unit #: [id number] Loc: [place] [address] Phys: Evin Castellanos MD Acct: [id number] Dis Date: Status: KISHOR ZIEGLER #: [phone] Exam Date: 02/23/20202055 FAX #: Reason: Code Sepsis EXAMS: CPT: [id number] XR CHEST 1 V 67298 Fluoro Time: DAP (Gy m2): Air Kerma [...] disease. 2. Chronic colonic air distention unchanged. hw1996 Reported and signed by: Monica Quijano MD CC: Susana Meza SIGN DESIGNER; Carl Luevano MD PAGE 1 Signed Report Name: [facility]A JOSEPH [facility] [place] [facility] 1970 Age/S: 50 / M [address] [place] Unit #: [id number] Loc: [place] [address] Phys: Evin Castellanos MD Acct: [id number] Dis Date: Status: REG ER PHONE #: [phone] Exam Date: 02/23/20202055 FAX #: Reason: Code Sepsis EXAMS:CPT: [id number] XR CHEST 1 V 75465 Fluoro Time: DAP (Gy m2): Air Kerma (mGy): <Continued> Technologist: Rudy Zuniga, RT(R)(CT)(MRI) Trnscb Date/Time: 02/23/2020 (2102) t.FLEXR.CLW Orig Print D/T:S: 02/23/2020 (2106) PAGE 2 Signed ReportBASIC METABOLIC [id number] 20:02:00 Test Item Value Reference Range Interpretation [...] 8.5-10.1 N Completed by Nursing: NOHEPATIC FUNCTION [id number] 20:02:00 Test Item Value Reference Range Interpretation [...] N code = ALKP) Completed by Nursing: [id number] 20:02:00 Test Item Value Reference Range Interpretation Comments LIPASE (test code = LIP) 97 Unit/L 114-286 L Completed by Nursing: [id number] 20:02:00 Test Item Value Reference Range Interpretation [...] brittani yby method. Completed by Nursing: NOLACTIC [id number] 19:59:00 Test Item Value Reference Range Interpretation Comments LACTIC ACID (test code = LACT) 1.2 mmol/L 0.4-2.0 N CBC W/AUTO [id number] 19:46:00 Test Item Value Reference Range Interpretation [...] CRITERIA = MDIFF) - XR ABDOMEN 2 [id number] 06:22:00 Name: DORA JOSEPH [facility] : 1970 Age/S: 50 / M [address] [facility] [place] Unit #: [id number] Loc: [place] [address] Phys: León Robertson MD Acct: [id number] Dis Date: Status: ADM IN PHONE #: [phone] Exam Date: 02/19/2020439 FAX #: Reason: megacolon EXAMS: CPT: [id number] XRABDOMEN 2 V 83406 Fluoro Time: DAP (Gy m2): Air Kerma [...] M.D. CC: León Robertson MD; Coco Nova [facility] 1 Signed Report Name: DORA JOSEPH [facility] : 1970 Age/S: 50 / M [address] [address] [place] Unit #: [id number] Loc: [place] [address] Phys: León Robertson MD Acct: [id number] Dis Date: Status: ADM IN PHONE #: [phone] Exam Date: 02/19/2020439 FAX #: Reason: megacolon EXAMS: CPT: [id number] XR ABDOMEN 2 V 71523 Fluoro Time: DAP (Gy m2): Air Kerma (mGy): <Continued> Ciara hnologist: Carrie Barnett, RT(R)(CT) Trnscb Date/Time: 02/19/2020 (06) Nelida Orig Print D/T: S: 02/19/2020 (0678) PAGE 2 Signed ReportBASIC METABOLIC [id number] 05:52:00 Test Item Value Reference Range Interpretation [...] CA) 8.5 MG/DL 8.5-10.1 N CBC W/AUTO [id number] 05:40:00 Test Item Value Reference Range Interpretation [...] NO DIFF/SCN CRITERIA = MDIFF) BASIC METABOLIC [id number] 06:52:00 Test Item Value Reference Range Interpretation [...] CA) 8.3 MG/DL 8.5-10.1 L CBC W/AUTO [id number] 06:39:00 Test Item Value Reference Range Interpretation [...] DIFF/SCN CRITERIA = MDIFF) Coronavirus 2019 nCoV [id number] 05:35:00 Test Item Value Reference Range Interpretation [...] tent with COVID-19. - XR ABDOMEN 1 [id number] 07:32:00 Name: DORA JOSEPH [place] : 1970 Age/S: 49 / M [address] [address] [place] Unit #: [id number] Loc: [place] [address] Phys: Jay Mayo MD Acct: [id number] Dis Date: Status: ADMIN PHONE #: [phone] Exam Date: 01/10/2020 0658 FAX #: Reason: follow up colonic ileus EXAMS: CPT: [id number] XR ABDOMEN 1 V 52416 Fluoro Time: DAP (Gy m2): Air Kerma [...] PAGE 1 Signed Report Name: DORA JOSEPH Marengo : 1970 Age/S: 49 / M [id number] [address] [place] Unit #: [id number] Loc: [place] [address] Phys: Jay Mayo MD Acct: [id number] Dis Date: Status: ADM IN PHONE #: [phone] Exam Date: 01/10/2020 0658 FAX #: Reason: follow up colonic ileus EXAMS: CPT: [id number] XR ABDOMEN 1 V 11679 Fluoro Time: DAP (Gy m2): Air Kerma (mGy): <Continued> Technologist: Bakari De Leon RT(R)(CT) Trnscb Date/Time: 01/10/2020(0732) [id number] Orig Print D/T: S: 01/10/2020 (0736) PAGE 2 Signed ReportCOMPREHENSIVE METABOLIC [id number] 05:56:00 Test Item Value Reference Range Interpretation [...] TOTAL (test code = ALKP) CBC W/AUTO [id number] 05:42:00 Test Item Value Reference Range Interpretation [...] = NO DIFF/SCN CRITERIA MDIFF) BASIC METABOLIC [id number] 06:59:00 Test Item Value Reference Range Interpretation [...] code = CA) 8.5 MG/DL 8.5-10.1 N [id number] 06:59:00 Test Item Value Reference Range Interpretation Comments MAGNESIUM (test code = MAG) 2.2 MG/DL 1.8-2.4 PROTHROMBIN [id number] 06:39:00 Test Item Value Reference Range Interpretation Comments PT PATIENT (test code = PTP) 13.1 SECONDS 9.3-12.9 H INTERNATIONAL NORMAL RATIO 1.16 INR Unit 0.8-1.2 N (test code = INR) CBC W/AUTO [id number] 06:22:00 Test Item Value Reference Range Interpretation [...] DIFF/SCN CRITERIA MDIFF) - XR ABDOMEN 1 [id number] 05:39:00 Name: DORA JOSEPH [facility] : 1970 Age/S: 49 / M [address] Unit #: [id number] Loc: [place] [address] Phys: [place] CoryAndre gandhi BUSINESS INTELLIGENCE REPORTING ANALYST Acct: [id number] Dis Date: Status: ADM IN PHONE #: [phone] Exam Date: 01/09/2020 05 FAX #: Reason: colonic ileus/obstruction EXAMS: CPT: [id number] XR ABDOMEN 1 V 79013 Fluoro Time: DAP (Gy m2): Air Kerma (mGy): Exam: KUB. Location: H 12 History: colonic ileus/obstruction COMPARISON: 01/08/2020 Findings: A supine view of the abdomen demonstrates no change has occurred in the dilatation of the distal colon. No organomegaly, abnormal masses or calcifications are seen. No pneumatosis or free air is present. Impression: Stable abdomen. at 0539 Reported and signed by: Fr lacho Do M.D. CC: Andre Solano; Mark Perea MD PAGE 1 Signed Report Name: DORA JOSEPH [place] : 1970 Age/S: 49 / M [address] Unit #: [id number] Loc: [place] [address] 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 Acct: [id number] Dis Date: Status: ADM IN PHONE #: [phone] Exam Date: 01/09/2020522 FAX #: Reason: colonic ileus/obstruction EXAMS: CPT: [id number] XR ABDOMEN 1V 22847 Fluoro Time: DAP (Gy m2): Air Kerma (mGy): <Continued> Technologist: Carrie Barnett, RT(R)(CT) Trnscb Date/Time: 01/09/2020 (538) tJUDSONFC Orig Print D/T: S: 01/09/2020 (0542) PAGE 2Signed ReportCoronavirus 2018 nCoV [id number] 22:38:00 Test Item Value Reference Range Interpretation Comments Coronavirus 2019 nCoV Bedside (test Negative Negative code = [id number]) Emergent procedure? YESCoronavirus 2018 nCoV [id number] 22:38:00 Test Item Value Reference Range Interpretation Comments Coronavirus 2019 nCoV Bedside (test Negative Negative code = [id number]) Emergent procedure? YESBASIC METABOLIC [id number] 18:42:00 Test Item Value Reference Range Interpretation [...] CA) 8.5 MG/DL 8.5-10.1 N CBC W/AUTO [id number] 10:50:00 Test Item Value Reference Range Interpretation [...] = NO DIFF/SCN CRITERIA MDIFF) COMPREHENSIVE METABOLIC [id number] 10:46:00 Test Item Value Reference Range Interpretation [...] 50-136 N TOTAL (test code = ALKP) [id number] 10:46:00 Test Item Value Reference Range Interpretation Comments MAGNESIUM (test code = MAG) 2.6 MG/DL 1.8-2.4 H COMPREHENSIVE METABOLIC [id number] 10:34:00 Test Item Value Reference Range Interpretation [...] TOTAL (test Unit/L 50-136 code = ALKP) [id number] 10:34:00 Test Item Value Reference Range Interpretation Comments MAGNESIUM (test code = MAG) MG/DL 1.8-2.4 - XR ABDOMEN 1 [id number] 08:28:00 Name: DORA JOSEPH [facility] : 1970 Age/S: 49 / M [address] Unit #: [id number] Loc: [place] [address] Phys: Yas Edwards MD Acct: [id number] Dis Date: Status: ADM IN PHONE#: [phone] Exam Date: 01/08/2020 0510 FAX #: Reason: ileus EXAMS: CPT: [id number] XR ABDOMEN 1 V 12778 Fluoro Time: DAP (Gy m2): Air Kerma [...] PAGE 1 Signed Report Name: DORA JOSEPH [place] : 1970 Age/S: 49 / M [address] Unit #: [id number] Loc: [place] [address] Phys: Yas Edwards MD Acct: [id number] Dis Date: Status: ADM IN PHONE #: [phone] Exam Date: 01/08/2020 05 FAX #: Reason: ileus EXAMS: CPT: [id number] XR ABDOMEN 1 V 25811 Fluoro Time: DAP (Gy m2): Air Kerma (mGy): <Continued> Technologist: Carrie Barnett, RT(R)(CT); ... Trnscb Date/Time: 01/08/2020 (827) t.SDR.JTM Orig Print D/T: S: 01/08/2020 (830) PAGE 2 Signed ReportCOMPREHENSIVE METABOLIC [id number] 07:08:00 Test Item Value Reference Range Interpretation [...] 50-136 L TOTAL (test code = ALKP) [id number] 07:08:00 Test Item Value Reference Range Interpretation Comments MAGNESIUM (test code = MAG) 1.3 MG/DL 1.8-2.4 L COMPREHENSIVE METABOLIC [id number] 05:16:00 Test Item Value Reference Range Interpretation [...] 50-136 L TOTAL (test code = ALKP) [id number] 05:16:00 Test Item Value Reference Range Interpretation Comments MAGNESIUM (test code = MAG) 1.3 MG/DL 1.8-2.4 L CBC W/AUTO [id number] 05:02:00 Test Item Value Reference Range Interpretation [...] (test code = NO DIFF/SCN CRITERIA MDIFF) [id number] 16:51:00 Test Item Value Reference Range Interpretation Comments MAGNESIUM (test code = MAG) 2.3 MG/DL 1.8-2.4 N FE W/TOTAL IRON BINDING CAP.2020-01-07 16:51:00 Test Item Value Reference Range Interpretation Comments SERUM IRON (test code = IRON) 38 mcG/DL 65-175 L TOTAL IRON BINDING CAPACITY (test 322 mcG/DL 250-450 N code = TIBC) IRON SATURATION (test code = 12 % calc 12-57 N FESAT) [id number] 16:51:00 Test Item Value Reference Range Interpretation Comments FERRITIN (test code = DAVID) 17.6 NG/ML 5.0-323.0 N CALCIUM [id number] 16:50:00 Test Item Value Reference Range Interpretation Comments CALCIUM IONIZED (test code = NAVEED) 1.12 mmol/L 1.12-1.32 N - XR ABDOMEN 1 [id number] 10:29:00 Name: DORA JOSEPH [facility] : 1970 Age/S: 49 / M [address] Unit #: [id number] Loc: [place] [address] Phys: Verona Frost PA-C Acct: [id number] Dis Date: Status: ADM IN PHONE #: [phone] Exam Date: 01/07/2020 0712 FAX #: Reason: reassess SBO EXAMS: CPT: [id number] XR ABDOMEN 1 V 95002 Fluoro Time: DAP (Gy m2): Air Kerma [...] PAGE 1 Signed Report Name: DORA JOSEPH [place] : 1970 Age/S: 49 / M [address] Unit #: [id number] Loc: [place] [address] Phys: Verona Frost PA-C Acct: [id number] Dis Date: Status: ADM IN PHONE #: [phone] Exam Date: 01/07/2020 0712 FAX #: Reason: reassess SBO EXAMS: CPT: [id number] XR ABDOMEN 1 V 85987 Fluoro Time: DAP (Gy m2): Air Kerma (mGy): <Continued> Technologist: Bakari De Leon RT(R)(CT) Trnscb Date/Time: 01/07/2020 (9434) t.SDR.AGV Orig Print D/T: S: 01/07/2020 (9861) PAGE 2 Signed ReportBASIC METABOLIC PANEL 2020-01-07 [...] CA) 5.4 MG/DL 8.5-10.1 LL CBC W/AUTO [id number] 06:49:00 Test Item Value Reference Range Interpretation [...] = NO DIFF/SCN CRITERIA MDIFF) COMPREHENSIVE METABOLIC [id number] 06:10:00 Test Item Value Reference Range Interpretation [...] TOTAL (test code = ALKP) CBC W/AUTO [id number] 05:52:00 Test Item Value Reference Range Interpretation [...] DIFF/SCN CRITERIA MDIFF) - XR ABDOMEN 1 [id number] 01:30:00 Name: DORA JOSEPH [facility] : 1970 Age/S: 49 / M [address] Unit #: [id number] Loc: [place] [address] Phys: Ted Coleman NP Acct: [id number] Dis Date: Status: ADM INPHONE #: [phone] Exam Date: 01/06/2020 0100 FAX #: Reason: NG Tube Placement Verification EXAMS: CPT: [id number] XR ABDOMEN 1 V 70076 Fluoro Time: DAP (Gy m2): Air Kerma [...] Do M.D. CC: Mark Perea MD; Ted Miller SIGN DESIGNER PAGE 1 Signed Report Name: DORA JOSEPH [facility] : 1970 Age/S: 49 / M [address] [facility] Unit #: [id number] Loc: [place] [address] Phys: Ted Coleman NP Acct: [id number] Dis Date: Status: ADM IN PHONE #: [phone] Exam Date: 01/06/2020 010 FAX #: Reason: NG Tube Placement Verification EXAMS: CPT: [id number] XR ABDOMEN 1 V 43390 Fluoro Time: DAP (Gy m2): Air Kerma (mGy): <Continued> Technologist: RT Tatum(R) [facility] [place] Date/Time: 01/06/2020 (013) Garett Orig Print D/T: S: 01/06/2020 (013) PAGE 2 Signed Report- CT ABD PELVIS W/O [id number] 19:42:00 [place]: St: REG -- Name: DORA JOSEPH [facility] : 1970 Age/S: 49/M [address] [place] Unit: [id number] Loc: [place], [place]: [place] [address] Acct: [id number] Dis Date: Status: REG ER PHONE #: [phone] Exam Date: 12/13/20191924 FAX #: [phone] Reason: pain EXAMS: CPT CODE: [id number] CT ABD PELVIS W/O CONT 76542 Examination: CT scan abdomen and pelvis without contrast. Location code: H 60. TECHNIQUE: Multiple axial images of the abdomen and pelvis were obtained without intravenous administration of contrast with sagittal and coronal reconstructions. CT exam wasperformed using automated dose reduction. COMPARISON: 02/28/2013. Discussion: [...] adenopathy is identified. Bladder is distended and isgrossly unremarkable. Prostatic calcifications are noted. There is [...] ALMANZAR Trnscrd Dt/Tm: 12/13/2019 (1941) tJARED.VR5 Orig PrintD/T: S: 12/13/2019 (5 PAGE 1 Signed ReportBASIC [...] code = CA) 8.6 mg/dl 8.0-10.5 N [id number] 18:49:00 Test Item Value Reference Range Interpretation Comments LIPASE (test code = LIP) 97 Units/L 65.0-230.0 N CBC W/AUTO [id number] 18:38:00 Test Item Value Reference Range Interpretation [...] K/mm3 0.0-0.2 N - XR CHEST 1 [id number] 18:36:00 [place]: St: PRE -- Name: DORA JOSEPH [facility] : 1970 Age/S: 49/M [address] [facility] [place] Unit #: [id number] Loc: [place]: [place] [address] Acct: [id number] Dis Date: Status: PRE ER PHONE #: [phone] Exam Date: 12/13/20191821 FAX #: [phone] Reason: SOB EXAMS: CPT CODE: [id number] XR CHEST 1 V 67188 Examination: One view chest x-ray Location code: [...] : By: GarettVR5 PAGE 1 Signed Report [place]: St: PRE ------ Name: DORA JOSEPH [facility] : 1970 Age/S: 49/M [address] [employer] Unit #: [id number] Loc: [place]: [place] [address] Acct: [id number] Dis Date: Status: PRE ER PHONE #: [phone] Exam Date: 12/13/2019 182 FAX #: [phone] Reason:SOB EXAMS: CPT CODE: [id number] XR CHEST 1 V 74908 (Continued) Orig Print D/T: S: 12/13/2019 (1839)PAGE 2 Signed ReportC W/PLT COUNT & AUTO [id number] 08:02:00 Test Item Value Reference Range Interpretation [...] Received comment: User comments: Slide comments:BASIC METABOLIC [id number] 07:34:00 Test Item Value Reference Range Interpretation [...] S NOT APPLICABLE FOR DIALYSIS PATIEN TS. [id number] 07:26:00 Test Item Value Reference Range Interpretation Comments PHOSPHORUS (BEAKER) (test code = 3.1 mg/dL 2.3-4.7 604) [id number] 07:26:00 Test Item Value Reference Range Interpretation Comments MAGNESIUM (BEAKER) (test code = 1.6 mg/dL 1.6-2.6 627) RAD, ABDOMEN/KUB, 1 VIEW [id number] 07:04:00Reason for exam:->ileusFINAL REPORT Abdomen , one [...] MDReport Verified Date/Time: 04/03/2019 07:04:46 Reading Location: [address] Ortho Consult Reading Room BASIC METABOLIC [id number] 06:47:00 Test Item Value Reference Range Interpretation [...] code = 413) URINALYSIS WITH MICROSCOPIC IF [id number] 22:01:00 Test Item Value Reference Range Interpretation [...] 463) SOURCE(BEAKER) (test code = 2795) URINALYSIS [id number] 22:01:00 Test Item Value Reference Range Interpretation Comments RBC UA (BEAKER) (test code = 519) 18 /HPF WBC UA (BEAKER) (test code = 520) 1 /HPF CALCIUM OXALATE CRYSTALS (BEAKER) Occasional (test code = 518) [id number] 05:49:00 Test Item Value Reference Range Interpretation Comments PHOSPHORUS (BEAKER) (test code = 2.5 mg/dL 2.3-4.7 604) [id number] 05:49:00 Test Item Value Reference Range Interpretation Comments MAGNESIUM (BEAKER) (test code = 1.7 mg/dL 1.6-2.6 627) BASIC METABOLIC [id number] 05:49:00 Test Item Value Reference Range Interpretation [...] (BEAKER) (test code = 413) BASIC METABOLIC [id number] 06:19:00 Test Item Value Reference Range Interpretation [...] S NOT APPLICABLE FOR DIALYSIS PATIEN TS. [id number] 06:10:00 Test Item Value Reference Range Interpretation Comments MAGNESIUM (BEAKER) 1.8 mg/dL 1.6-2.6 Specimen slightly (test code = 627) hemolyzed [id number] 06:10:00 Test Item Value Reference Range Interpretation [...] (BEAKER) (test code = 413) BASIC METABOLIC [id number] 04:57:00 Test Item Value Reference Range Interpretation [...] S NOT APPLICABLE FOR DIALYSIS PATIEN TS. [id number] 04:55:00 Test Item Value Reference Range Interpretation Comments PHOSPHORUS (BEAKER) (test code = 2.6 mg/dL 2.3-4.7 604) [id number] 04:55:00 Test Item Value Reference Range Interpretation Comments MAGNESIUM (BEAKER) (test code = 1.8 mg/dL 1.6-2.6 627) CT, [id number] 14:16:00FINAL REPORT TECHNIQUE: CT of the abdomen [...] Kim MDReport Verified Date/Time: 03/29/2019 14:16:01Reading Location: [facility] C013Y CT Body Reading Room , ABDOMEN/KUB, 1 VIEW [id number] 10:23:00Reason for exam:->evaluate ileusFINAL REPORT Technique: Supine [...] MDReport Verified Date/Time: 03/29/2019 10:23:29 Reading Location: [facility] Reading Room CBC (HEMOGRAM ONLY)2019-03-29 08:10:00 Test [...] WBC 0-0 (BEAKER) (test code = 413) [id number] 06:20:00 Test Item Value Reference Range Interpretation Comments PHOSPHORUS (BEAKER) (test code = 2.6 mg/dL 2.3-4.7 604) [id number] 06:20:00 Test Item Value Reference Range Interpretation Comments MAGNESIUM (BEAKER) (test code = 2.0 mg/dL 1.6-2.6 627) BASIC METABOLIC [id number] 06:20:00 Test Item Value Reference Range Interpretation [...] TS. RAD, ABDOMEN SERIES W/ UPRIGHT PA [id number] 22:18:00Reason for exam:- >eval ileusFINAL REPORT CLINICAL [...] ileus over obstruction. However if there is persistentclinical concern recommend further evaluation with CT abdomen pelvis. Signed: Mari Bethea Verified Date/Time: 03/28/2019 22:18:50 RAD, ABDOMEN/KUB, 1 VIEW [id number] 11:23:00Reason for exam:->abdominal distensionShould this be performed [...] transition point is identified. Signed: Wendi Cruz Verified Date/Time: 03/28/2019 11:23:34 Reading Location: [facility] Radiology Reading Room TISSUE [id number] 09:00:00Surgical Pathology Report Case: [id number] Authorizing Provider: Graciela Garrison MD Collected: 03/25/2019 1133 Ordering Location: [facility] PERIOPERATIVE Received: 03/25/2019 1527 SERVICES Pathologist: [...] NEGATIVEFOR MALIGNANCY Signing Pathologist Direct Phone Line: [phone] signed by Jordan Celaya MD on 03/28/2019 at 9:00 [id number] and postop diagnosis: ileostomy statusA. End ileostomy; [...] nodes are not identified in the mesentery. Pyrometer Mechanic sections are submitted. Section code: A, business center representative section of each end of first mentioned segment of small bowel; A2, business center representative of first mentioned segment of small bowel mucosa; A3, area of hemorrhagic mesentery of second mentioned segment of mucosa; A4, business center representative of hemorrhagic mucosa at open end of second portion of small bowel; A5, business center representative of stapled margin from second mentioned [...] 0.2 cm. No gross lesions are identified. Pyrometer Mechanic sections are submitted. Section code: B1, proximal margin en face and tip; B2, business center representative cross section. CG/pl Performed.[id number] 06:23:00 Test Item Value Reference Range Interpretation Comments PHOSPHORUS (BEAKER) (test code = 2.7 mg/dL 2.3-4.7 604) [id number] 06:23:00 Test Item Value Reference Range Interpretation Comments MAGNESIUM (BEAKER) (test code = 1.9 mg/dL 1.6-2.6 627) BASIC METABOLIC [id number] 06:23:00 Test Item Value Reference Range Interpretation [...] S NOT APPLICABLE FOR DIALYSIS PATIEN TS. [id number] 08:20:00 Test Item Value Reference Range Interpretation Comments PHOSPHORUS (BEAKER) (test code = 2.6 mg/dL 2.3-4.7 604) [id number] 08:20:00 Test Item Value Reference Range Interpretation Comments MAGNESIUM (BEAKER) (test code = 1.8 mg/dL 1.6-2.6 627) BASIC METABOLIC [id number] 08:20:00 Test Item Value Reference Range Interpretation [...] S NOT APPLICABLE FOR DIALYSIS PATIEN TS. [id number] 06:06:00 Test Item Value Reference Range Interpretation Comments PHOSPHORUS (BEAKER) (test code = 4.1 mg/dL 2.3-4.7 604) [id number] 06:06:00 Test Item Value Reference Range Interpretation Comments MAGNESIUM (BEAKER) (test code = 1.8 mg/dL 1.6-2.6 627) BASIC METABOLIC [id number] 06:06:00 Test Item Value Reference Range Interpretation [...] S NOT APPLICABLE FOR DIALYSIS PATIEN TS. [id number] 06:03:00 Test Item Value Reference Range Interpretation Comments PHOSPHORUS (BEAKER) (test code = 4.2 mg/dL 2.3-4.7 604) [id number] 06:03:00 Test Item Value Reference Range Interpretation Comments MAGNESIUM (BEAKER) (test code = 2.0 mg/dL 1.6-2.6 627) BASIC METABOLIC [id number] 06:03:00 Test Item Value Reference Range Interpretation [...] WBC 0-0 (BEAKER) (test code = 413) [id number] 05:52:00 Test Item Value Reference Range Interpretation Comments PHOSPHORUS (BEAKER) (test code = 4.2 mg/dL 2.3-4.7 604) [id number] 05:52:00 Test Item Value Reference Range Interpretation Comments MAGNESIUM (BEAKER) (test code = 1.9 mg/dL 1.6-2.6 627) BASIC METABOLIC [id number] 05:52:00 Test Item Value Reference Range Interpretation [...] S NOT APPLICABLE FOR DIALYSIS PATIEN TS. [id number] 06:51:00 Test Item Value Reference Range Interpretation Comments PHOSPHORUS (BEAKER) (test code = 4.3 mg/dL 2.3-4.7 604) [id number] 06:51:00 Test Item Value Reference Range Interpretation Comments MAGNESIUM (BEAKER) (test code = 2.0 mg/dL 1.6-2.6 627) BASIC METABOLIC [id number] 06:51:00 Test Item Value Reference Range Interpretation [...] 0-0 (BEAKER) (test code = 413) TISSUE [id number] 11:50:00Surgical Pathology Report Case: [id number] Authorizing Provider: Mela Larson MD Collected: 03/18/2019 1827 Ordering Location: [facility] PERIOPERATIVE Received: 03/21/2019 0823 SERVICES Pathologist: Jordan Celaya MD Specimen: Small Bowel, NOS A. SMALL BOWEL, ILEOSTOMY PROLAPSE, TAKEDOWN: - ANASTOMOSIS SITE WITH ACTIVE CHRONIC INFLAMMATION AND FOCAL ISCHEMIC CHANGES - MUCOSAL RESECTION MARGINS, NEGATIVE FOR MALIGNANCY - ONE BENIGN LYMPH NODE (0/1) - NEGATIVE FOR DYSPLASIA OR MALIGNANCYSigning Pathologist Direct Phone Line: [phone] signed by Jordan Celaya MDon 03/22/2019 at 11:50 [id number] of ileostomyReceived in a container labeled "small [...] 0.5 to 1.2 cm in greatest dimension. Pyrometer Mechanic sections are submitted as follows: A1-A2, mucosal resection margin, en face; A3-A6, business center representative sections of the possible ostomy stump; A7-A11, serial business center representative sections from mucosal resection margin to the possible ostomy stump; A12, two lymph nodes. TH/plPerformed.[id number] 06:58:00 Test Item Value Reference Range Interpretation Comments PHOSPHORUS (BEAKER) (test code = 3.8 mg/dL 2.3-4.7 604) [id number] 06:58:00 Test Item Value Reference Range Interpretation Comments MAGNESIUM (BEAKER) (test code = 2.0 mg/dL 1.6-2.6 627) BASIC METABOLIC [id number] 06:58:00 Test Item Value Reference Range Interpretation [...] PATIEN TS. CBC W/PLT COUNT & AUTO [id number] 05:42:00 Test Item Value Reference Range Interpretation [...] PERCENT (BEAKER) (test code = 2801) FL, [id number] 17:42:00Reason for exam:->evaluate for colon stricture as [...] MDReport Verified Date/Time: 03/21/2019 17:42:21 Reading Location: [place] [address] Consult Reading Room [id number] 03:58:00 Test Item Value Reference Range Interpretation Comments PHOSPHORUS (BEAKER) (test code = 3.0 mg/dL 2.3-4.7 604) [id number] 03:58:00 Test Item Value Reference Range Interpretation Comments MAGNESIUM (BEAKER) (test code = 2.0 mg/dL 1.6-2.6 627) BASIC METABOLIC [id number] 03:58:00 Test Item Value Reference Range Interpretation [...] PATIEN TS. CBC W/PLT COUNT & AUTO [id number] 03:20:00 Test Item Value Reference Range Interpretation [...] (BEAKER) (test code = 2801) BASIC METABOLIC [id number] 06:26:00 Test Item Value Reference Range Interpretation [...] S NOT APPLICABLE FOR DIALYSIS PATIEN TS. [id number] 06:05:00 Test Item Value Reference Range Interpretation Comments PHOSPHORUS (BEAKER) (test code = 2.2 mg/dL 2.3-4.7 L 604) [id number] 06:05:00 Test Item Value Reference Range Interpretation Comments MAGNESIUM (BEAKER) (test code = 2.0 mg/dL 1.6-2.6 627) CBC W/PLT COUNT & AUTO [id number] 05:25:00 Test Item Value Reference Range Interpretation [...] 0-1 PERCENT (BEAKER) (test code = 2801) [id number] 04:31:00 Test Item Value Reference Range Interpretation Comments PHOSPHORUS (BEAKER) (test code = 3.7 mg/dL 2.3-4.7 604) [id number] 04:31:00 Test Item Value Reference Range Interpretation Comments MAGNESIUM (BEAKER) (test code = 1.9 mg/dL 1.6-2.6 627) BASIC METABOLIC [id number] 04:31:00 Test Item Value Reference Range Interpretation [...] PATIEN TS. CBC W/PLT COUNT & AUTO [id number] 04:15:00 Test Item Value Reference Range Interpretation [...] 0-1 PERCENT (BEAKER) (test code = 2801) [id number] 06:41:00 Test Item Value Reference Range Interpretation Comments PHOSPHORUS (BEAKER) (test code = 3.1 mg/dL 2.3-4.7 604) [id number] 06:41:00 Test Item Value Reference Range Interpretation Comments MAGNESIUM (BEAKER) (test code = 1.9 mg/dL 1.6-2.6 627) BASIC METABOLIC [id number] 06:41:00 Test Item Value Reference Range Interpretation [...] PATIEN TS. CBC W/PLT COUNT & AUTO [id number] 06:36:00 Test Item Value Reference Range Interpretation [...] PERCENT (BEAKER) (test code = 2801) CT, [id number] 17:04:00No PO contrastFINAL REPORT ABDOMINAL AND PELVIS [...] MDReport Verified Date/Time: 03/17/2019 17:04:19 Reading Location: [facility] B1 C013Y CT Body Reading Room XR ABDOMEN 2 [id number] 09:03:45XR ABDOMEN 2 VIEWSLOCATION: [id number]: Colstomy ProlapseCOMPARISON: Chest radiograph 04/15/2017, CT of [...] Nonspecific, nonobstructive bowel gas pattern.XR CHEST 1 [id number] 11:32:15EXAM: CHEST ONE VIEWINDICATION: Chest painCOMPARISON: None availableTECHNIQUE: AP view of the chest.FINDINGS: The cardiomediastinal silhouette is normal. The lungs are clearbilaterally. No pneumothoraxor pleural effusion is identified. Theosseous structures are unremarkable.IMPRESSION: No acute cardiopulmonary process.LOCATION: H12Justr Type and [id number] 21:21:00 Test Item Value Reference Range Interpretation Comments ABO type (test code = ABO) O Rh Type (test code = RH) Positive Comprehensive Metabolic [id number] 20:36:00 Test Item Value Reference Range Interpretation [...] the National Kidney Foundation,http ://nkd ep.nih.gov Alcohol/Ethanol, [id number] 20:36:00 Test Item Value Reference Range Interpretation Comments Alcohol, Ethyl <0.01 g/dL 0.00-0.01 N Intoxicated 0 .080 g/dL (test code = ETOH) or more Prothrombin [id number] 20:00:00 Test Item Value Reference Range Interpretation Comments PT (test code = PT) 10.10 seconds 9.78-13.35 N INR (test code = INR) 0.88 Ratio 0.6-1.2 N Partial Thromboplastin [id number] 20:00:00 Test Item Value Reference Range Interpretation Comments aPTT (test code = PTT) 31.50 seconds 24.39-37.25 N CBC with [id number] 19:50:00 Test Item Value Reference Range Interpretation [...] code = ALYMPH) 2.2 K/cumm 0.5-4.6 N Dillon Abs (test code = AMONO) 0.4 K/cumm 0.0-1.2 N Eos Abs (test code = AEOS) 0.17 K/cumm 0.00-0.74 N Baso Abs (test code = ABASO) 0.0 K/cumm 0.00-0.21 N 03930& PELVIS W/O [id number] 17:36:28CT ABDOMEN AND PELVIS WITHOUT CONTRAST.CLINICAL HISTORY: [...]
[2022-07-02 08:42] VITALS: BP 103/71; TEMP 98.1; O2SAT 100
== END 2022-07-02 06:18 | disposition home or self-care (01) ==
LOC: ER 05:33
DX: Z43.3 Encounter for attention to colostomy (principal)
CPT/HCPCS: 99283

== ENCOUNTER 2022-07-11 08:33 | Emergency (ER) | payer SELFPAY ==
--- OUTSIDE RECORDS SUMMARY | 2022-07-11 08:50 | XMS REPORT | Continuity of Care Document ---
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 11:00:[address] [facility] Respiratory rate 2022-03-09 11:00:00 16 /min [facility] Oxygen saturation in 2022-03-09 11:00:00 100 /min [facility] Arterial blood by Medical Ce [facility]ter Pulse oximetry Body height 2022-03-06 12:05:00 185.4 cm [facility] Body weight 2022-03-06 12:05:00 65.772 kg [facility] BMI 2022-03-06 12:05:00 19.13 kg/m2 [facility] Procedures Procedure Date / Time Performing Clinician Source Performed BASIC METABOLIC PANEL 2022-03-07 05:51:[address] [facility] HEPATIC FUNCTION PANEL 2022-03-07 05:51:00 [facility] W/PLT COUNT & AUTO 2022-03-07 05:51:00 Shiela [facility] CBC W/PLT COUNT & AUTO 2022-03-07 05:51:[address] [facility] US RENAL COMPLETE 2022-03-06 18:23:00 Shiela Romie [facility] SARS-COV2/RT-PCR ([facility] & 2022-03-06 17:36:00 [facility] REF LABS) [facility] TSH/FREE T4 IF INDICATED 2022-03-06 14:18:00 [facility] 2022-03-06 14:18[facility] 2022-03-06 13:48:12 [facility] 1 VIEW PORTABLE 2022-03-06 13:42:00 [facility] B-TYPE NATRIURETIC FACTOR 2022-03-06 13:23:00 Aryan Tello [facility] (BNP) [facility] CBC W/PLT COUNT & AUTO 2022-03-06 13:23:00 Aryan Tello [facility] COMPREHENSIVE METABOLIC 2022-03-06 13:23:00 Aryan Tello [facility] PANEL [facility] HIGH SENSITIVITY TROPONIN 2022-03-06 13:23:00 Aryan Tello [facility] MAGNESIUM 2022-03-06 13:23:[address] [facility] PHOSPHORUS 2022-03-06 13:23:00 [facility] LACTIC ACID, VENOUS 2022-03-06 13:23:00 Aryan Tello [facility] CREATINE KINASE (CK) 2022-03-06 13:23:00 Aryan Tello [facility] CBC W/PLT COUNT & AUTO 2022-03-06 13:23:00 [facility] DI[facility] ECG 12-LEAD 2022-03-06 12:12:56 Unknown, Hl7 Doctor [facility] ECG 12-LEAD 2022-03-06 12:12:56 Unknown, Hl7 Doctor [facility] ECG 12-LEAD 2022-03-06 12:12:56 Unknown, Hl7 Doctor [facility] EKG-SCANNED 2022-03-06 00:00:[address] [facility] CBC (WITHOUT 2022-02-20 05:10:00 Rufino Lazaro DIFFERENTIAL) BASIC METABOLIC PANEL 2022-02-20 05:10:00 Rufino Lazaro Health MAGNESIUM 2022-02-20 05:10:00 Rufino Lazaro PHOSPHORUS 2022-02-20 05:10:00 Rufino Lazaro INFUSION PUMP 2022-02-19 19:03:50 Rufino Lazaro COMPREHENSIVE METABOLIC 2022-02-19 06:35:00 Kobe Blake arr Health PANEL CBC/DIFF 2022-02-19 06:35:00 Kobe Blake alth PHOSPHORUS 2022-02-19 06:35:00 Kobe Blake alth CBC 2022-02-19 06:35:00 Kobe Blake alth URINALYSIS W/REFLEX TO 2022-02-19 00:34:00 Kobe Blake [facility] URINE CULTURE URINALYSIS 2022-02-19 00:34:00 Chadd Palacios URINE CULTURE COLLECTION 2022-02-19 00:34:00 Chadd Palacios [facility] KIT SARS-COV-2, FLU A/B, RSV 2022-02-18 19:00:00 Chadd Palacios [facility] CORONAVIRUS, COVID-19, 2022-02-18 19:00:00 Chadd Palacios [facility] OLENA XRAY CHEST 1 VIEW 2022-02-18 15:23:00 Roz [facility] CONSULT CLINICAL CASE 2022-02-18 14:50:50 Yordy Roz [facility] MANAGEMENT (RN/SW) CBC/DIFF 2022-02-18 14:16:00 Albab, Susana [facility] BASIC METABOLIC PANEL 2022-02-18 14:16:00 Albab[facility] MAGNESIUM 2022-02-18 14:16:00 Albab, [facility] PHOSPHORUS 2022-02-18 14:16:00 Albab, Susana [facility] CREATINE KINASE (CK) 2022-02-18 14:16:00 Albab, [facility] CBC 2022-02-18 14:16:00 Albab, [facility]olin[facility] BASIC METABOLIC PANEL 2022-02-11 03:34:00 [facility] 2022-02-11 03:34:00 [facility] PHOS[facility]US 2022-02-11 03:34:00 [facility] CBC (WITHOUT 2022-02-11 03:34:00 [place], Teresa [facility] DIFFERENTIAL) CBC/DIFF 2022-02-10 03:39:00 Meghan Islas [facility]alt [facility] BASIC METABOLIC PANEL 2022-02-10 03:39:00 [facility] 2022-02-10 03:39:00 [facility] THYROID STIMULATING 2022-02-10 03:39:00 [facility] HORMONE (TSH) FREE T4 2022-02-10 03:39:00 [place] Teresa [facility] CBC/DIFF 2022-02-09 04:38:00 Meghan Islas Healt h BASIC METABOLIC PANEL 2022-02-09 04:38:00 [facility] 2022-02-09 04:38:00 [facility], TOTAL 2022-02-08 11:37:00 Mari Meier ealt GLUCOSE POC 2022-02-08 08:07:00 [facility] (WITHOUT 2022-02-08 04:00:00 Mari Meier [facility] DIFFERENTIAL) COMPREHENSIVE METABOLIC 2022-02-08 04:00:00 Mari Meier Health PANEL PHOSPHORUS 2022-02-08 04:00:00 Mari Meier ealth MAGNESIUM 2022-02-08 04:00:00 [facility] PT[facility]R 2022-02-08 04:00:00 Mari Meier [facility] ealt URINALYSIS W/REFLEX TO 2022-02-07 18:06:00 Areli Arciniega [facility] URINE CULTURE URINALYSIS 2022-02-07 18:06:00 Areli Arciniega alth URINE CULTURE COLLECTION 2022-02-07 18:06:00 Areli Arciniega [facility] KIT ELECTROLYTES, URINE 2022-02-07 18:06:00 Jyoti Carrillo [facility] OSMOLALITY, URINE 2022-02-07 18:06:00 Jyoti Carrillo [facility] SARS-COV-2, FLU A/B, RSV 2022-02-07 18:05:00 Jyoti Carrillo [facility] CORONAVIRUS, COVID-19, 2022-02-07 18:05:00 Jyoti Carrillo [facility] OLENA NUTRITION CONSULT 2022-02-07 17:43:36 Mari Meier [facility] ASSESSMENT BASIC METABOLIC PANEL 2022-02-07 17:18:00 Jyoti Carrillo [facility] LACTIC ACID 2022-02-07 14:04:00 Areli Arciniega alth CBC/DIFF 2022-02-07 14:03:00 Areli Arciniega alth BASIC METABOLIC PANEL 2022-02-07 14:03:00 Areli Arciniega [facility] LIVER PROFILE 2022-02-07 14:03:00 Areli Arciniega alth LIPASE 2022-02-07 14:03:00 Areli Arciniega alth MAGNESIUM 2022-02-07 14:03:00 Areli Arciniega alth PHOSPHORUS 2022-02-07 14:03:00 Areli Arciniega alth TROPONIN I 2022-02-07 14:03:00 Areli Arciniega alth CBC 2022-02-07 14:03:00 Areli Arciniega alth 12 LEAD EKG 2022-01-21 15:46:10 Ori Goldberg [facility] h CBC/DIFF 2022-01-21 04:11:00 LindseySteve [facility] MAGNESIUM 2022-01-21 04:11:00 Lindsey Steve P [facility] PHOSPHORUS 2022-01-21 04:11:00 LindseyNoeh P [facility] BASIC METABOLIC PANEL 2022-01-21 04:11:00 Ori Goldberg [facility] CBC 2022-01-21 04:11:00 LindseySteve [facility] CBC/DIFF 2022-01-20 04:37:00 LindseyNoeh P [facility] MAGNESIUM 2022-01-20 04:37:00 Lindsey Steve P [facility] PHOSPHORUS 2022-01-20 04:37:00 Lindsey Steve P [facility] BASIC METABOLIC PANEL 2022-01-20 04:37:00 LindseySteve P [facility] CBC 2022-01-20 04:37:00 LindseyNoeh Esther [facility] MAGNESIUM 2022-01-19 18:09:00 LindseyNoeh P [facility] PHOSPHORUS 2022-01-19 18:09:00 Lindsey Steve P [facility] BASIC METABOLIC PANEL 2022-01-19 18:09:00 [facility] CORTISOL, TOTAL 2022-01-19 18:09:00 Karin Bassett [facility] URINALYSIS W/REFLEX TO 2022-01-19 17:22:00 [facility] URINE CULTURE URINALYSIS 2022-01-19 17:22:00 Steve Lucas [facility] URINE CULTURE COLLECTION 2022-01-19 17:22:00 Lindsey Steve Esther [facility] KIT COMPUTED TOMOGRAPHY 2022-01-19 13:29:00 Steve Lucas [facility] ABDOMEN AND PELVIS WITHOUT CONTRAST CBC/DIFF 2022-01-19 04:44:00 Steve Lucas [facility] CBC 2022-01-19 04:44:00 Setve Lucas [facility] DIFFERENTIAL, MANUAL (NO 2022-01-19 04:44:00 Lindsey Steve Santana Momin [facility] MORPHOLOGY)-[place] BASIC METABOLIC PANEL 2022-01-18 17:15:00 [facility] CBC/DIFF 2022-01-18 04:46:00 Steve Lucsa [facility] MAGNESIUM 2022-01-18 04:46:00 Steve Lucas [facility] PHOSPHORUS 2022-01-18 04:46:00 Steve Lucas [facility] BASIC METABOLIC PANEL 2022-01-18 04:46:00 Ori Goldberg [facility] CBC 2022-01-18 04:46:00 [facility]/AB COMBO ROUTINE 2022-01-18 04:46:00 Karin Bassett [facility] SCREENING ENTERIC PATHOGENS NUCLEIC 2022-01-18 03:25:00 Karin Bassett [facility] ACID TEST BASIC METABOLIC PANEL 2022-01-18 00:29:00 Ori Goldberg [facility] BASIC METABOLIC PANEL 2022-01-17 17:07:00 Steve [facility] BASIC METABOLIC PANEL 2022-01-17 13:15:00 Steve [facility] CALPROTECTIN FECAL 2022-01-17 12:38:00 Steve Lucas ealth FECAL LEUKOCYTES 2022-01-17 12:38:00 Steve Lucas [facility] T-TRANSGLUTAMINASE IGA 2022-01-17 12:22:00 Steve Lucas [facility] BASIC METABOLIC PANEL 2022-01-17 08:51:00 LindseyNoeh P [facility] BASIC METABOLIC PANEL 2022-01-17 04:47:00 Noe Lucash P [employer] [facility] CBC/DIFF 2022-01-17 04:47:00 Steve Lucas [facility] MAGNESIUM 2022-01-17 04:47:00 Steve Lucas [facility] th PHOSPHORUS 2022-01-17 04:47:00 LindseySteve Esther [facility] CBC 2022-01-17 04:47:00 Noe Lucash Esther [facility] BASIC METABOLIC PANEL 2022-01-17 00:08:00 LindseySteve Harri s [facility] 12 LEAD EKG 2022-01-16 21:23:25 LindseySteve [facility] BASIC METABOLIC PANEL 2022-01-16 21:08:00 Steve Lucas P [employer] XRAY CHEST 2 VIEWS 2022-01-16 19:56:00 Noe Lucash Esther [facility] ealt IP CONSULT TO PHYSICAL 2022-01-16 19:17:17 Steve Lucas [facility] Health THERAPY CONSULT CLINICAL CASE 2022-01-16 19:17:17 Lindsey, Steve Santana [employer] [facility] MANAGEMENT (RN/SW) SEQUENTIAL COMPRESSION 2022-01-16 19:17:17 Steve Lucas [facility] PUMP SEQUENTIAL COMPRESSION 2022-01-16 19:17:[address] Esther [facility] PUMP SODIUM, URINE, RANDOM 2022-01-16 16:00:00 Kevin Nieves [facility] CREATININE, URINE, RANDOM 2022-01-16 16:00:00 Kevin Nieves [facility] OSMOLALITY, URINE 2022-01-16 16:00:00 Kevin Nieves [facility] SARS-COV-2, FLU A/B, RSV 2022-01-16 15:20:00 Kevin Nieves [facility] CORONAVIRUS, COVID-19, 2022-01-16 15:20:00 Kevin Nieves [facility] OLENA FOLIC ACID 2022-01-16 14:13:00 Kevin Nieves [facility] ealt CREATININE POC 2022-01-16 13:55:00 Raymon [facility] BMP POC 2022-01-16 13:46:00 Veronica Raymon Dao [facility] CBC/DIFF 2022-01-16 12:12:00 Veronica, Raymon Dao [facility] CBC 2022-01-16 12:12:00 Veronica Raymon Dao [facility] BASIC METABOLIC PANEL 2022-01-16 12:11:00 Sadiq Vargas [facility] MAGNESIUM 2022-01-16 12:11:00 Sadiq Vargas a lth VITAMIN B12 2022-01-16 12:11:00 Kevin Nieves [facility] ealth OSMOLALITY,SERUM 2022-01-16 12:11:00 Kevin Nieves [facility] INFUSION PUMP 2022-01-11 09:21:05 Helene Ring [facility] GLUCOSE POC 2022-01-11 07:54:00 Helene Ring [facility] BASIC METABOLIC PANEL 2022-01-11 04:07:00 Merissa Richards [facility] MAGNESIUM 2022-01-11 04:07:00 [facility] 2022-01-11 04:07:00 [facility] CBC/DIFF 2022-01-11 04:06:00 Merissa Richards [facility] h IRON PROFILE 2022-01-11 04:06:00 [facility] FOLIC ACID 2022-01-11 04:06:00 [facility] CBC 2022-01-11 04:06:00 Merissa Richards [facility] h GLUCOSE POC 2022-01-10 18:16:00 Helene Ring [facility] URINALYSIS 2022-01-10 16:10:00 Merissa Richards [facility] h URINALYSIS 2022-01-10 16:10:00 Merissa Richards [facility] h SARS-COV-2, FLU A/B, RSV 2022-01-10 15:54:00 Merissa Richards [facility] CORONAVIRUS, COVID-19, 2022-01-10 15:54:00 Antoine Hester [facility] OLENA BASIC METABOLIC PANEL 2022-01-10 15:54:00 Merissa Richards [facility] VITAMIN B12 2022-01-10 15:54:00 Merissa Richards [facility] VBG POC 2022-01-10 11:14:00 Dia Jewell [facility] CBC/DIFF 2022-01-10 11:13:00 Antoine Hester [facility] BASIC METABOLIC PANEL 2022-01-10 11:13:00 Antoine Hester [facility] LACTIC ACID 2022-01-10 11:13:00 Antoine Hester [facility] h CBC 2022-01-10 11:13:00 Antoine Hester [facility] LIVER PROFILE 2022-01-10 11:13:00 Fercho Merissa Felicita [facility] CK, TOTAL 2022-01-10 11:13:00 Fercho Merissa Q [facility] FERRITIN 2022-01-10 11:13:00 Fercho Merissa Felicita [facility] CREATINE KINASE MB (CKMB) 2022-01-10 11:13:00 Merissa Richards [facility] XRAY CHEST 2 VIEWS 2022-01-08 21:50:14 Tanja Sebastian [facility] CBC/DIFF 2022-01-08 21:27:00 Tanja Sebastian [facility] BASIC METABOLIC PANEL 2022-01-08 21:27:00 Tanja Sebastian [facility] LIVER PROFILE 2022-01-08 21:27:00 Tanja Sebastian [facility] CK, TOTAL 2022-01-08 21:27:00 Tanja Sebastian [facility] TROPONIN I 2022-01-08 21:27:00 Tanja Sebastian [facility] lt CBC 2022-01-08 21:27:00 Tanja Sebastian [facility] CREATINE KINASE MB (CKMB) 2022-01-08 21:27:00 Tanja Sebastian [facility] 12 LEAD EKG 2022-01-08 20:59:56 Tanja Sebastian [facility] [id number] 2020-01-09 00:00:00 BG.01 [facility] Plan of Care Planned Activity Planned Date Details Comments Source Future Scheduled 2029-03-23 Screening for malignant [facility] Test 00:00:00 neoplasm of colon [facility] (procedure) [code = 781368039] Future Scheduled 2029-03-23 Screening for malignant [facility] Test 00:00:00 neoplasm of colon [facility] (procedure) [code = 491219567] Future Scheduled 2029-03-23 Screening for malignant [facility] Test 00:00:00 neoplasm of colon [facility] Ce [facility] (procedure) [code = 201846391] Future Scheduled 2029-03-23 Screening for malignant [facility] Test 00:00:00 neoplasm of colon [facility] Ce [facility] (procedure) [code = 822505988] Future Scheduled 2029-03-23 Screening for malignant [facility] Test 00:00:00 neoplasm of colon [facility] Ce [facility] (procedure) [code = 496763984] Future Scheduled 2029-03-23 Screening for malignant [facility] Test 00:00:00 neoplasm of colon [facility] Ce [facility] (procedure) [code = 136198742] Future Scheduled 2029-03-23 Screening for malignant [facility] Test 00:00:00 neoplasm of colon [facility] Ce [facility] (procedure) [code = 402297152] Future Scheduled 2029-03-23 Screening for malignant [facility] Test 00:00:00 neoplasm of colon [facility] Ce [facility] (procedure) [code = 659922597] Future Scheduled 2029-03-23 Screening for malignant [facility] Test 00:00:00 neoplasm of colon [facility] Ce [facility] (procedure) [code = 414523151] Future Scheduled 2029-03-23 Screening for malignant [facility] Test 00:00:00 neoplasm of colon Medical Ce [facility] (procedure) [code = 949725413] Future Scheduled 2029-03-23 Screening for malignant [facility] Test 00:00:00 neoplasm of colon Medical Ce [facility]ter (procedure) [code = 561403948] Future Scheduled 2029-03-23 Screening for malignant [facility] Test 00:00:00 neoplasm of colon Medical Ce [facility]ter (procedure) [code = 788461768] Future Scheduled 2029-03-23 Screening for malignant [facility] Test 00:00:00 neoplasm of colon Medical Ce [facility]ter (procedure) [code = 677572221] Future Scheduled 2029-03-23 Screening for malignant [facility] Test 00:00:00 neoplasm of colon Medical Ce [facility] (procedure) [code = 012174095] Future Scheduled 2029-03-23 Screening for malignant [facility] Test 00:00:00 neoplasm of colon Medical Ce [facility]ter (procedure) [code = 549024212] Future Scheduled 2029-03-23 Screening for malignant [facility] Test 00:00:00 neoplasm of colon Medical Ce [facility] (procedure) [code = 790914292] Future Scheduled 2029-03-23 Screening for malignant [facility] Test 00:00:00 neoplasm of colon Medical Ce [facility]ter (procedure) [code = 153133243] Future Scheduled 2029-03-23 Screening for malignant [facility] Test 00:00:00 neoplasm of colon Medical Ce [facility] (procedure) [code = 721829561] Future Scheduled 2029-03-23 Screening for malignant [facility] Test 00:00:00 neoplasm of colon Medical Ce [facility] (procedure) [code = 174775068] Future Scheduled 2029-03-23 Screening for malignant [facility] Test 00:00:00 neoplasm of colon Medical Ce nter (procedure) [code = 579921606] Future Scheduled 2029-03-23 Screening for malignant [facility] Test 00:00:00 neoplasm of colon Medical Ce nter (procedure) [code = 206927594] Future Scheduled 2029-03-23 Screening for malignant [facility] Test 00:00:00 neoplasm of colon Medical Ce [facility]ter (procedure) [code = 364224287] Future Scheduled 2029-03-23 Screening for malignant [facility] Test 00:00:00 neoplasm of colon Medical Ce [facility] (procedure) [code = 690135243] Future Scheduled 2029-03-23 Screening for malignant [facility] Test 00:00:00 neoplasm of colon Medical Ce [facility]ter (procedure) [code = 711202584] Future Scheduled 2029-03-23 Screening for malignant [facility] Test 00:00:00 neoplasm of colon Medical Ce [facility]ter (procedure) [code = 997883036] Future Scheduled 2029-03-23 Screening for malignant [facility] Test 00:00:00 neoplasm of colon Medical Ce [facility]ter (procedure) [code = 598071358] Future Scheduled 2029-03-23 Screening for malignant [facility] Test 00:00:00 neoplasm of colon Medical Ce [facility] (procedure) [code = 339404778] Future Scheduled 2029-03-23 Screening for malignant [facility] Test 00:00:00 neoplasm of colon Medical Ce [facility]ter (procedure) [code = 001175125] Future Scheduled 2029-03-23 Screening for malignant [facility] Test 00:00:00 neoplasm of colon Medical Ce [facility]ter (procedure) [code = 512680395] Future Scheduled 2022-05-24 IMM Influenza Seasonal H [...] 00:00:00 neoplasm of colon (procedure) [code = 884806659] Future Scheduled 2020-02-14 Screening [facility] 00:00:00 neoplasm of colon (procedure) [code = 945194054] Future Scheduled 2020-02-14 Screening for malignant [facility] Test 00:00:00 neoplasm of colon (procedure) [code = 383263963] Future Scheduled 2020-02-14 Screening for malignant [facility] Test 00:00:00 neoplasm of colon (procedure) [code = 541461316] Future Scheduled 2020-02-14 Screening for malignant [facility] Test 00:00:00 neoplasm of colon (procedure) [code = 332323914] Future Scheduled 2020-02-14 Screening for malignant [facility] Test 00:00:00 neoplasm of colon (procedure) [code = 808159232] Future Scheduled 2020-02-14 Screening for malignant [facility] Test 00:00:00 neoplasm of colon (procedure) [code = 129225169] Future Scheduled 2020-02-14 Screening for malignant [facility] Test 00:00:00 neoplasm of colon (procedure) [code = 875229975] Future Scheduled 2020-02-14 Screening for malignant [facility] Test 00:00:00 neoplasm of colon (procedure) [code = 536978842] Future Scheduled 2020-02-14 Screening for malignant [facility] Test 00:00:00 neoplasm of colon (procedure) [code = 837262806] Future Scheduled 2020-02-14 Screening for malignant [facility] Test 00:00:00 neoplasm of colon (procedure) [code = 868827656] Future Scheduled 2020-02-14 Screening for malignant [facility] Test 00:00:00 neoplasm of colon (procedure) [code = 512461453] Future Scheduled 2020-02-14 Screening for malignant [facility] Test 00:00:00 neoplasm of colon (procedure) [code = 302007652] Future Scheduled 2020-02-14 SHINGLES VACCINES (1 of [...] 00:00:00 neoplasm of colon (procedure) [code = 236276755] Future Scheduled 2005 Lipid panel (procedure) [facility] 00:00:00 [code = 66916558] Medical Ce nter Future Scheduled 2005 Lipid panel (procedure) [facility] 00:00:00 [code = 77775930] Medical Ce nter Future Scheduled 2005 Lipid panel (procedure) [facility] 00:00:00 [code = 89131712] Medical Ce nter Future Scheduled 2005 Lipid panel (procedure) [facility] 00:00:00 [code = 33373571] Medical Ce nter Future Scheduled 2005 Lipid panel (procedure) [facility] 00:00:00 [code = 30302042] Medical Ce nter Future Scheduled 2005 Lipid panel (procedure) [facility] 00:00:00 [code = 76712727] Medical Ce nter Future Scheduled 2005 Lipid panel (procedure) [facility] 00:00:00 [code = 72623844] Medical Ce nter Future Scheduled 2005 Lipid panel (procedure) [facility] 00:00:00 [code = 58512676] Medical Ce nter Future Scheduled 2005 Lipid panel (procedure) [facility] 00:00:00 [code = 13737628] Medical Ce nter Future Scheduled 2005 Lipid panel (procedure) [facility] 00:00:00 [code = 74872325] Medical Ce nter Future Scheduled 2005 Lipid panel (procedure) [facility] 00:00:00 [code = 09028310] Medical Ce nter Future Scheduled 2005 Lipid panel (procedure) [facility] 00:00:00 [code = 90248273] Medical Ce nter Future Scheduled 2005 Lipid panel (procedure) [facility] 00:00:00 [code = 91502816] Medical Ce nter Future Scheduled 2005 Lipid panel (procedure) [facility] 00:00:00 [code = 75735129] Medical Ce nter Future Scheduled 2005 Lipid panel (procedure) [facility] 00:00:00 [code = 70226485] Medical Ce nter Future Scheduled 1989 DTAP/TDAP/TD [...] = COVID-19 Vaccine (#1)] Future Scheduled 1970 Fluoride Varnish [code [...] [facility] 00:[facility]:00 [code = CT Colonography [facility] (combo)] Future Scheduled 1970 Screening for malignant [facility] 00:00:00 neoplasm of colon Medical Ce nter (procedure) [code = 951855341] Future Scheduled 1970 Screening for malignant [facility] Test 00:00:00 neoplasm of colon Medical Ce nter (procedure) [code = 750002302] Future Scheduled 1970 Sigmoidoscopy [code = [facility]] Medical Angele r Future Scheduled 1970 Screening for malignant [facility] Test 00:00:00 neoplasm of colon Medical Ce nter (procedure) [code = 021908710] Future Scheduled 1970 Screening for malignant [facility] Test 00:00:00 neoplasm of colon Medical Ce nter (procedure) [code = 527732362] Future Scheduled 1970 Sigmoidoscopy [facility]code [facility]] [facility] r Future Scheduled 1970 CT Colonography (combo) [facility] 00:[facility]:00 [code = CT [facility] (combo)] Future Scheduled 1970 Screening for malignant [facility] 00:00:00 neoplasm of colon Medical Ce nter (procedure) [code = 645367214] Future Scheduled 1970 Screening for malignant [facility] 00:00:00 neoplasm of colon Medical Ce nter (procedure) [code = 021680624] Future Scheduled 1970 Sigmoidoscopy [code = [facility] Sigmoidoscopy] Medical [facility]ge[facility] r Future Scheduled 1970 CT Colonography (combo) [facility] 00:00:00 [code = CT [facility] (combo)] Future Scheduled 1970 Screening for malignant [facility] 00:00:00 neoplasm of colon Medical Ce nter (procedure) [code = 375860991] Future Scheduled 1970 Screening for malignant [facility] 00:00:00 neoplasm of colon Medical Ce nter (procedure) [code = 877606204] Future Scheduled 1970 Sigmoidoscopy [facility]code = [facility] S[facility]oidoscopy] Medical [facility] r Future Scheduled 1970 CT Colonography (combo) [facility] 00:00:00 [code = CT [facility] (com[facility])] Future Scheduled 1970 Screening for malignant [facility] 00:00:00 neoplasm of colon Medical Ce nter (procedure) [code = 153268618] Future Scheduled 1970 Screening for malignant [facility] 00:00:00 neoplasm of colon Medical Ce [facility]ter (procedure) [code = 230488837] Future Scheduled 1970 Sigmoidoscopy [code = [facility] S[facility]oscopy] [facility] Cent[facility] Future Scheduled 1970 CT Colonography (combo) [facility] 00:00:00 [code = CT [facility] (combo)] Future Scheduled 1970 Screening for malignant [facility] 00:00:00 neoplasm of colon Medical Ce nter (procedure) [code = 947351620] Future Scheduled 1970 Screening for malignant [facility] 00:00:00 neoplasm of colon Medical Ce [facility]ter (procedure) [code = 378239911] Future Scheduled 1970 Sigmoidoscopy [facility]code = [facility] S[facility]oscopy] [facility] Cent[facility] Future Scheduled 1970 CT Colonography (combo) [facility] 00:00:00 [code = CT [facility] (com[facility])] Future Scheduled 1970 Screening for malignant [facility] 00:00:00 neoplasm of colon Medical Ce nter (procedure) [code = 007699365] Future Scheduled 1970 Screening for malignant [facility] 00:00:00 neoplasm of colon Medical Ce nter (procedure) [code = 199520631] Future Scheduled 1970 Sigmoidoscopy [code = [facility] S[facility]oscopy] [facility] Cent[facility] Future Scheduled 1970 CT Colonography (combo) [facility] 00:00:00 [code = CT [facility] (com[facility])] Future Scheduled 1970 Screening for malignant [facility] 00:00:00 neoplasm of colon Medical Ce nter (procedure) [code = 802588700] Future Scheduled 1970 Screening for malignant [facility] 00:00:00 neoplasm of colon Medical Ce nter (procedure) [code = 506906490] Future Scheduled 1970 Sigmoidoscopy [facility]code [facility] S[facility]oscopy] Medical Cent[facility] Future Scheduled 1970 CT Colonography (combo) [facility] 00:00:00 [code = CT [facility] (com[facility])] Future Scheduled 1970 Screening for malignant [facility] 00:00:00 neoplasm of colon Medical Ce nter (procedure) [code = 302988434] Future Scheduled 1970 Screening for malignant [facility] 00:00:00 neoplasm of colon Medical Ce nter (procedure) [code = 134058267] Future Scheduled 1970 Sigmoidoscopy [facility]code [facility] S[facility]oscopy] Medical Cent[facility] Future Scheduled 1970 CT Colonography (combo) [facility] 00:00:00 [code = CT [facility] (com[facility])] Future Scheduled 1970 Screening for malignant [facility] 00:00:00 neoplasm of colon Medical Ce nter (procedure) [code = 712671353] Future Scheduled 1970 Screening for malignant [facility] 00:00:00 neoplasm of colon Medical Ce nter (procedure) [code = 793064947] Future Scheduled 1970 Sigmoidoscopy [code = [facility] Sigmoidoscopy] Medical An[facility]le r Future Scheduled 1970 CT Colonography (combo) [facility] 00:00:00 [code = CT [facility] (combo)] Future Scheduled 1970 Screening for malignant [facility] 00:00:00 neoplasm of colon Medical Ce nter (procedure) [code = 523343405] Future Scheduled 1970 Screening for malignant [facility] 00:00:00 neoplasm of colon Medical Ce nter (procedure) [code = 923128886] Future Scheduled 1970 Sigmoidoscopy [code = [facility] S[facility]oidoscopy] Medical Angele r Future Scheduled 1970 CT Colonography (combo) [facility] 00:00:00 [code = CT [facility] (com[facility])] Future Scheduled 1970 Screening for malignant [facility] 00:00:00 neoplasm of colon Medical Ce nter (procedure) [code = 958650585] Future Scheduled 1970 Screening for malignant [facility] 00:00:00 neoplasm of colon Medical Ce nter (procedure) [code = 240929897] Future Scheduled 1970 Sigmoidoscopy [code = [facility] S[facility]oscopy] Medical Cente r Future Scheduled 1970 CT Colonography (combo) [facility] 00:00:00 [code = CT [facility] (com[facility])] Future Scheduled 1970 Screening for malignant [facility] 00:00:00 neoplasm of colon Medical Ce nter (procedure) [code = 851258940] Future Scheduled 1970 Screening for malignant [facility] 00:00:00 neoplasm of colon Medical Ce nter (procedure) [code = 354857492] Future Scheduled 1970 Sigmoidoscopy [code = [facility] S[facility]oscopy] Medical Cente r Future Scheduled 1970 CT Colonography (combo) [facility] 00:00:00 [code = CT [facility] (combo)] Future Scheduled 1970 Screening for malignant [facility] 00:00:00 neoplasm of colon Medical Ce nter (procedure) [code = 190550182] Future Scheduled 1970 Screening for malignant [facility] 00:00:00 neoplasm of colon Medical Ce nter (procedure) [code = 600015581] Future Scheduled 1970 Sigmoidoscopy [code = [facility] Sigm[facility]oscopy] Medical Cente r Future Scheduled 1970 CT Colonography (combo) [facility] 00:00:00 [code = CT Colonography [facility] (combo)] Encounters Start End Encounter Admission Attending Care Care Encounter Source Date/Time Date/Time Type Type Clinicians Facility Department ID 2020-02-23 Inpatient [facility] LENNY [id number] [facility] 18:42:00 89 Claribel westfall [facility] 2020-02-17 Inpatient EM Avtar, [facility] BRET [id number] [facility] 00:22:00 Oladipo 75 [facility] 2020-01-05 Inpatient UR Eliazar, HCAPM MEDI.01 [id number] [facility] 20:23:00 Mark 40 [facility] 2019-12-13 Inpatient HCAM[facility] JULIA [id number] [facility] 17:52:00 47 [facility] 2022-03-29 2022-03-29 Emergency EM White, HCACL AERS [id number] [facility] 14:26:00 16:45:00 Steve 28 [facility] 2022-03-29 2022-03-29 Emergency EM White, HCACL HCACL [id number] [facility] 14:26:00 16:45:00 Steve 31657 [facility] 2022-03-25 2022-03-26 Inpatient E [facility] MED [id number] BL 13:38:00 10:16:00 , YESSI 2022-03-15 2022-03-18 Emergency E RADHA [facility] MED [id number] [facility] 13:36:00 18:59:00 [facility] 2022-03-13 2022-03-13 Emergency [facility] [id number] [place] 15:33:00 20:25:00 [facility] 2022-03-13 2022-03-13 Emergency [facility] [id number] [place] 15:33:00 20:25:00 [facility] 2022-03-13 2022-03-13 Outpatient RONALD, [facility] [id number] Lyn[place] 00:00:00 00:00:00 [facility] 2022-03-06 2022-03-09 [facility] 1 [id number] [facility] 12:16:00 12:55:00 Encounter Dee Dee Montalvo Fang-Ying M edical Heinen, Allison P. Latta León Joyner 2022-03-06 2022-03-09 Inpatient ER LEÓN JOYNER [facility] Emergency [id number] SLE 12:16:00 12:55:00 2022-03-06 2022-03-[address] [facility] [id number] [facility] 12:16:00 12:55:00 Encounter Dee Dee Montalvo juan Kuo, Pao Ramos León Joyner 2022-03-06 2022-03-06 [facility] [id number] [facility] 00:00:00 23:59:00 Jennifer fnuk of Medicin e 2022-03-06 2022-03-06 Orders [facility] [id number] 00:00:00 00:00:00 Only [facility] 2022-03-06 2022-03-06 Travel [facility] [id number] [facility] 00:[facility]00 00:00:00 [facility] 2022-03-06 2022-03-06 Orders [facility] [id number] 00:00:00 00:00:00 Only [facility] 2022-03-06 2022-03-06 Travel [facility] [id number] [facility] 00:00:00 00:00:00 [facility] 2022-02-18 2022-02-20 Emergency Raven Teddy [facility] [id number] [place] 13:58:00 11:55:[facility]uf[facility] Kobe Chavez 2022-02-18 2022-02-20 Emergency Raven Teddy [facility] [id number] [place] 13:58:00 11:55:00 [facility] Mela Blakeo 2022-02-18 2022-02-18 [facility] [id number] [place] 15:19:05 15:23:18 [facility] 2022-02-18 2022-02-18 [facility] [id number] [place] 13:58:00 13:58:00 [facility] 2022-02-18 2022-02-18 Outpatient DENIZ [facility] [id number] [place] 00:00:00 00:00:00 , OSCAR Daniels 2022-02-07 2022-02-11 [facility] [id number] [place] 13:40:00 13:22:00 Encounter Meghan Islas [facility] Teresa Alves 2022-02-07 2022-02-11 [facility] [id number] [place] 13:40:00 13:22:00 Encounter Meghan Islas [facility] Long Teresa 2022-02-07 2022-02-07 Outpatient 1 MEGHAN ISLAS [facility] [id number] [place] 13:40:00 13:40:00 [facility] 2022-01-30 2022-01-30 Emergency SEAN Pacheco, [facility] [id number] [facility] 17:02:00 18:29:00 Dwain 53 [facility] 2022-01-30 2022-01-30 Emergency SEAN Pacheco, [facility] [id number] [facility] 17:02:00 18:29:00 Dwain [id number] [facility] 2022-01-22 2022-01-22 Emergency [facility] [id number] [place] 17:24:00 20:39:00 [facility] 2022-01-22 2022-01-22 Emergency [facility] [id number] [place] 17:24:00 20:39:00 [facility] 2022-01-16 2022-01-21 Emergency Raymon Martin [facility] [id number] [place] 11:04:00 18:08:00 Karin Bassett Julian C Agrawal, Parth P 2022-01-16 2022-01-21 Emergency Raymon Martin [facility] [id number] [place] 11:04:00 18:08:00 Karin Bassett Julian C Agrawal, Parth P 2022-01-19 2022-01-19 Outpatient [facility] [id number] [place] 12:34:08 13:29:31 Health 2022-01-16 2022-01-16 Outpatient [facility] [id number] [place] 19:42:28 20:01:28 [facility] 2022-01-16 2022-01-16 Outpatient 1 DANYELLE [facility] [id number] [place] 11:04:00 11:04:00 KARIN blanchard 2022-01-10 2022-01-11 Emergency Bert Reed [facility] [id number] [place] 10:58:00 11:20:00 Helene Ring [facility] Merissa Richards 2022-01-10 2022-01-11 Emergency Bert Reed [facility] [id number] [place] 10:58:00 11:20:00 Helene Ring [facility] Merissa Richards 2022-01-10 2022-01-10 Outpatient 1 [facility] [id number] [place] 10:58:00 10:58:00 [facility] 2022-01-08 2022-01-09 Emergency [facility] [id number] [place] 17:57:00 02:50:00 [facility] 2022-01-08 2022-01-09 Emergency [facility] [id number] [place] 17:57:00 02:50:00 [facility] 2022-01-08 2022-01-08 Emergency [facility] [id number] [place] 21:40:34 21:50:19 [facility] 2021-09-23 2021-09-23 Emergency EM [facility] [id number] [facility] 19:35:00 21:10:[address] [place] [address] 2021-09-13 2021-09-13 Emergency EM Raffaele Levi [facility] [id number] [facility] 14:57:00 16:37:00 06 [facility] 2021-07-27 2021-07-27 Emergency EM Kateryna, HC[facility] JULIA [id number] [facility] 10:15:00 12:36:00 Tarmars 17 [facility] 2021-07-22 2021-07-22 Emergency EM Marcelina, [facility] [id number] [facility] 04:25:00 08:20:00 Tarrell 74 [facility] 2021-06-27 2021-06-27 Emergency EM Bridgett, [facility] [id number] [facility] 15:31:00 17:37:00 Steve 17 [facility] 2021-04-28 2021-05-01 Inpatient EM Aisha, [facility] [id number] [facility] 21:05:00 14:18:00 Christopher 03 Mehran liao [facility] 2020-02-24 2020-02-24 Outpatient JOE PereaO [id number] [facility] 07:51:00 07:51:00 Mark 96 [facility] 2020-02-18 2020-02-18 Outpatient JOE Nova LABO [id number] [facility] 00:26:00 00:26:00 Oladipo 05 [facility] 2020-01-05 2020-01-05 Outpatient JOE Perea [facility] [id number] [facility] 23:52:00 23:52:00 Mark 24 [facility] 2017-11-02 2017-11-02 Emergency E [facility] [id number] 08:33:00 08:33:00 [facility] 2017-08-05 2017-08-05 Outpatient [facility] [id number] [place] 00:00:00 00:00:00 [facility] 2017-07-28 2017-07-28 Outpatient [facility] [id number] [place] 00:00:00 00:00:00 [facility] 2017-06-24 2017-06-24 Outpatient [facility] [id number] [place] 00:00:00 00:00:00 [facility] 2017-06-22 2017-06-22 Emergency [facility] [id number] [place] 21:37:29 21:37:29 [facility] 2017-06-22 2017-06-22 Emergency [facility] MED [id number] [place] 21:06:00 21:06:00 [facility] 2017-06-22 2017-06-22 Outpatient [facility] [id number] [place] 10:02:31 10:02:31 [facility] 2017-06-09 2017-06-09 Outpatient [facility] [id number] [place] 00:00:00 00:00:00 [facility] 2017-06-09 2017-06-09 Outpatient [facility] [id number] [place] 00:00:00 00:00:00 [facility] 2017-05-08 2017-05-08 Emergency [facility] MED [id number] [place] 01:04:44 01:04:44 [facility] 2017-05-05 2017-05-05 Emergency E [facility] MED [id number] 08:11:00 08:11:00 [facility] 2017-04-15 2017-04-15 Emergency E [facility] MED [id number] . 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 BASIC METABOLIC [id number] 14:56:00 Test Item Value Reference Range Interpretation [...] MG/DL 70-110 N - XR CHEST 1 [id number] 00:00:00 [facility] : 1970 Sex: M FAX: Steve Urias MD [phone] [place]: [place] St: REG Name: MARIA ISABEL JOSEPH FSED : 1970 Age/S: 52/M [address] [facility] Unit #: [id number] Loc: LILLY Erazo, [place] [address] Phys: Steve Urias MD Acct: [id number] DisDate: Status: REG ER PHONE #: Exam Date: 03/29/2022 1501 FAX #: Reason: Weakness EXAMS: CPT CODE: [id number] XR CHEST 1 V 35326 PROCEDURE INFORMATION: Exam: XR Chest Exam date [...] Reported and signed by: Barrett Bailey M.D. CC : Steve Urias MD Technologist: Avtar Lang RT(R)(CT) Trnscrd Date/Time/By: 03/29/2022 (1530) : By: GarettTTV Orig Print D/T: S: 03/29/2022 (1531) PAGE 1 Signed ReportHEPATIC FUNCTION [id number] 06:45:03 Test Item Value Reference Range Interpretation [...] (test code = 13 U/L 6-55 347) Software Qa System Specialist KEN HOOD WBASIC METABOLIC [id number] 06:45:02 Test Item Value Reference Range Interpretation [...] S NOT APPLICABLE FOR DIALYSIS PATIEN TS. Software Qa System Specialist KEN HOOD WCBC W/PLT COUNT & AUTO [id number] 06:26:54 Test Item Value Reference Range Interpretation [...] (BEAKER) (test code = 2801) U/S, RENAL, [id number] 19:23:00Reason for exam:->acute kidney [facility] 1970 Sex: [...] IMPRESSION:Unremarkable ultrasound of the kidneys. Signed: Amberly Pratereport Verified Date/Time: 03/06/2022 19:23:41 -CoV2/RT-PCR (Asymptomatic ONLY)2022-03-06 19:17:07 Test Item Value Reference Interpretation Comments Range SARS-COV2/RT-PCR Negative Negative The SARS-Co V-2 (test code = target nucleic 87581-9) acids are not detected in thi s [...] revoked sooner. Fact Sheet for Healthcare Providers: https://www.[employer]/Documents/Xp ert%20Xpress%20SAR S%20CoV-2/Fact%20S heets/302-3802%20S ARS-COV-2%20HEALTH CARE%20PROVIDERS%2 0FACT%20SHEET.pdf Fact Sheet for Healthcare Patients: https://www.[employer]/Documents/Xp ert%20Xpress%20SAR S%20CoV-2/Fact%20S heets/302-3801%20S ARS-COV-2%20PATIEN T%20FACT%20SHEET.p df Lab Interpretation Normal (test code = 39782-1) [facility]2022-03-06 19:17:07 Test Item Value Reference Interpretation Comments Range SARS-COV2/RT-PCR Negative Negative The SARS-Co V-2 (test code = target nucleic 96532-0) acids are not detected in thi s [...] om SARS-CoV-2 in a nasopharyngeal swab specimen [facility] from individual s suspected of COVID-19 by [...] revoked sooner. Fact Sheet for Healthcare Providers: https://www.[employer]/Documents/Xp ert%20Xpress%20SAR S%20CoV-2/Fact%20S heets/302-3802%20S ARS-COV-2%20HEALTH CARE%20PROVIDERS%2 0FACT%20SHEET.pdf Fact Sheet for Healthcare Patients: https://www.[employer]/Documents/Xp ert%20Xpress%20SAR S%20CoV-2/Fact%20S heets/302-3801%20S ARS-COV-2%20PATIEN T%20FACT%20SHEET.p df Lab Interpretation Normal (test code = 53037-1) [facility]As[facility]omatic ONLY)2022-03-06 19:17:07 Test Item Value Reference Interpretation Comments Range SARS-COV2/RT-PCR Negative Negative The SARS-Co V-2 (test code = target nucleic 33551-6) acids are not detected in thi s [...] revoked sooner. Fact Sheet for Healthcare Providers: https://www.[employer]/Documents/Xp ert%20Xpress%20SAR S%20CoV-2/Fact%20S heets/302-3802%20S ARS-COV-2%20HEALTH CARE%20PROVIDERS%2 0FACT%20SHEET.pdf Fact Sheet for Healthcare Patients: https://www.[employer]/Documents/Xp ert%20Xpress%20SAR S%20CoV-2/Fact%20S heets/302-3801%20S ARS-COV-2%20PATIEN T%20FACT%20SHEET.p df Lab Interpretation Normal (test code = 42953-7) [facility]As[facility]omatic ONLY)2022-03-06 19:17:07 Test Item Value Reference Interpretation Comments Range SARS-COV2/RT-PCR Negative Negative The SARS-Co V-2 (test code = target nucleic 19806-0) acids are not detected in thi s [...] revoked sooner. Fact Sheet for Healthcare Providers: https://www.[employer]/Documents/Xp ert%20Xpress%20SAR S%20CoV-2/Fact%20S heets/302-3802%20S ARS-COV-2%20HEALTH CARE%20PROVIDERS%2 0FACT%20SHEET.pdf Fact Sheet for Healthcare Patients: https://www.[employer]/Documents/Xp ert%20Xpress%20SAR S%20CoV-2/Fact%20S heets/3023801%20S ARS-COV-2%20PATIEN T%20FACT%20SHEET.p df Lab Interpretation Normal (test code = 82812-8) [facility]As[facility]omatic ONLY)2022-03-06 19:17:07 Test Item Value Reference Interpretation Comments Range SARS-COV2/RT-PCR Negative Negative The SARS-Co V-2 (test code = target nucleic 70592-0) acids are not detected in thi s [...] revoked sooner. Fact Sheet for Healthcare Providers: https://www.[employer]/Documents/Xp ert%20Xpress%20SAR S%20CoV-2/Fact%20S heets/3023802%20S ARS-COV-2%20HEALTH CARE%20PROVIDERS%2 0FACT%20SHEET.pdf Fact Sheet for Healthcare Patients: https://www.[employer]/Documents/Xp ert%20Xpress%20SAR S%20CoV-2/Fact%20S heets/302-3801%20S ARS-COV-2%20PATIEN T%20FACT%20SHEET.p df Lab Interpretation Normal (test code = 17886-6) [facility]As[facility]omatic ONLY)2022-03-06 19:17:07 Test Item Value Reference Interpretation Comments Range SARS-COV2/RT-PCR Negative Negative The SARS-Co V-2 (test code = target nucleic 01905-8) acids are not detected in thi s [...] revoked sooner. Fact Sheet for Healthcare Providers: https://www.[employer]/Documents/Xp ert%20Xpress%20SAR S%20CoV-2/Fact%20S heets/302-3802%20S ARS-COV-2%20HEALTH CARE%20PROVIDERS%2 0FACT%20SHEET.pdf Fact Sheet for Healthcare Patients: https://www.[employer]/Documents/Xp ert%20Xpress%20SAR S%20CoV-2/Fact%20S heets/302-3801%20S ARS-COV-2%20PATIEN T%20FACT%20SHEET.p df Lab Interpretation Normal (test code = 53828-6) [facility]As[facility]omatic ONLY)2022-03-06 19:17:07 Test Item Value Reference Interpretation Comments Range SARS-COV2/RT-PCR Negative Negative The SARS-Co V-2 (test code = target nucleic 57351-7) acids are not detected in thi s [...] revoked sooner. Fact Sheet for Healthcare Providers: https://www.[employer]/Documents/Xp ert%20Xpress%20SAR S%20CoV-2/Fact%20S heets/302-3802%20S ARS-COV-2%20HEALTH CARE%20PROVIDERS%2 0FACT%20SHEET.pdf Fact Sheet for Healthcare Patients: https://www.[employer]/Documents/Xp ert%20Xpress%20SAR S%20CoV-2/Fact%20S heets/302-3801%20S ARS-COV-2%20PATIEN T%20FACT%20SHEET.p df Lab Interpretation Normal (test code = 19244-2) [facility]As[facility]omatic ONLY)2022-03-06 19:17:07 Test Item Value Reference Interpretation Comments Range SARS-COV2/RT-PCR Negative Negative The SARS-Co V-2 (test code = target nucleic 07290-6) acids are not detected in thi s [...] revoked sooner. Fact Sheet for Healthcare Providers: https://www.[employer]/Documents/Xp ert%20Xpress%20SAR S%20CoV-2/Fact%20S heets/302-2122%20S ARS-COV-2%20HEALTH CARE%20PROVIDERS%2 0FACT%20SHEET.pdf Fact Sheet for Healthcare Patients: https://www.[employer]/Documents/Xp ert%20Xpress%20SAR S%20CoV-2/Fact%20S heets/302-4681%20S ARS-COV-2%20PATIEN T%20FACT%20SHEET.p df Lab Interpretation Normal (test code = 38262-4) [facility]As[facility]omatic ONLY)2022-03-06 19:17:07 Test Item Value Reference Interpretation Comments Range SARS-COV2/RT-PCR Negative Negative The SARS-Co V-2 (test code = target nucleic 79140-4) acids are not detected in thi s [...] revoked sooner. Fact Sheet for Healthcare Providers: https://www.[employer]/Documents/Xp ert%20Xpress%20SAR S%20CoV-2/Fact%20S heets/302-3802%20S ARS-COV-2%20HEALTH CARE%20PROVIDERS%2 0FACT%20SHEET.pdf Fact Sheet for Healthcare Patients: https://www.[employer]/Documents/Xp ert%20Xpress%20SAR S%20CoV-2/Fact%20S heets/302-3801%20S ARS-COV-2%20PATIEN T%20FACT%20SHEET.p df Lab Interpretation Normal (test code = 56264-0) [facility]06 19:17:07 Test Item Value Reference Interpretation Comments Range SARS-COV2/RT-PCR Negative Negative The SARS-Co V-2 (test code = target nucleic 86368-0) acids are not detected in thi s [...] revoked sooner. Fact Sheet for Healthcare Providers: https://www.[employer]/Documents/Xp ert%20Xpress%20SAR S%20CoV-2/Fact%20S heets/302-3802%20S ARS-COV-2%20HEALTH CARE%20PROVIDERS%2 0FACT%20SHEET.pdf Fact Sheet for Healthcare Patients: https://www.[employer]/Documents/Xp ert%20Xpress%20SAR S%20CoV-2/Fact%20S heets/302-3801%20S ARS-COV-2%20PATIEN T%20FACT%20SHEET.p df Lab Interpretation Normal (test code = 83293-9) [facility]2022-03-06 19:17:07 Test Item Value Reference Interpretation Comments Range SARS-COV2/RT-PCR Negative Negative The SARS-Co V-2 (test code = target nucleic 54407-2) acids are not detected in thi s [...] revoked sooner. Fact Sheet for Healthcare Providers: https://www.[employer]/Documents/Xp ert%20Xpress%20SAR S%20CoV-2/Fact%20S heets/302-3802%20S ARS-COV-2%20HEALTH CARE%20PROVIDERS%2 0FACT%20SHEET.pdf Fact Sheet for Healthcare Patients: https://www.[employer]/Documents/Xp ert%20Xpress%20SAR S%20CoV-2/Fact%20S heets/302-3801%20S ARS-COV-2%20PATIEN T%20FACT%20SHEET.p df Lab Interpretation Normal (test code = 69241-4) [facility]2022-03-06 19:17:07 Test Item Value Reference Interpretation Comments Range SARS-COV2/RT-PCR Negative Negative The SARS-Co V-2 (test code = target nucleic 26713-1) acids are not detected in thi s [...] revoked sooner. Fact Sheet for Healthcare Providers: https://www.[employer]/Documents/Xp ert%20Xpress%20SAR S%20CoV-2/Fact%20S heets/302-3802%20S ARS-COV-2%20HEALTH CARE%20PROVIDERS%2 0FACT%20SHEET.pdf Fact Sheet for Healthcare Patients: https://www.[employer]/Documents/Xp ert%20Xpress%20SAR S%20CoV-2/Fact%20S heets/302-3801%20S ARS-COV-2%20PATIEN T%20FACT%20SHEET.p df Lab Interpretation Normal (test code = 39648-9) [facility]2022-03-06 19:17:07 Test Item Value Reference Interpretation Comments Range SARS-COV2/RT-PCR Negative Negative The SARS-Co V-2 (test code = target nucleic 46025-2) acids are not detected in thi s [...] om SARS-CoV-2 in a nasopharyngeal swab specimen [facility] from individual s suspected of COVID-19 by [...] revoked sooner. Fact Sheet for Healthcare Providers: https://www.[employer]/Documents/Xp ert%20Xpress%20SAR S%20CoV-2/Fact%20S heets/302-3802%20S ARS-COV-2%20HEALTH CARE%20PROVIDERS%2 0FACT%20SHEET.pdf Fact Sheet for Healthcare Patients: https://www.[employer]/Documents/Xp ert%20Xpress%20SAR S%20CoV-2/Fact%20S heets/302-3801%20S ARS-COV-2%20PATIEN T%20FACT%20SHEET.p df Lab Interpretation Normal (test code = 80023-8) [facility]2022-03-06 19:17:07 Test Item Value Reference Interpretation Comments Range SARS-COV2/RT-PCR Negative Negative The SARS-Co V-2 (test code = target nucleic 53881-1) acids are not detected in thi s [...] revoked sooner. Fact Sheet for Healthcare Providers: https://www.[employer]/Documents/Xp ert%20Xpress%20SAR S%20CoV-2/Fact%20S heets/302-3802%20S ARS-COV-2%20HEALTH CARE%20PROVIDERS%2 0FACT%20SHEET.pdf Fact Sheet for Healthcare Patients: https://www.[employer]/Documents/Xp ert%20Xpress%20SAR S%20CoV-2/Fact%20S heets/302-3801%20S ARS-COV-2%20PATIEN T%20FACT%20SHEET.p df Lab Interpretation Normal (test code = 82999-4) [facility]2022-03-06 19:17:07 Test Item Value Reference Interpretation Comments Range SARS-COV2/RT-PCR Negative Negative The SARS-Co V-2 (test code = target nucleic 82181-0) acids are not detected in thi s [...] revoked sooner. Fact Sheet for Healthcare Providers: https://www.[employer]/Documents/Xp ert%20Xpress%20SAR S%20CoV-2/Fact%20S heets/302-3802%20S ARS-COV-2%20HEALTH CARE%20PROVIDERS%2 0FACT%20SHEET.pdf Fact Sheet for Healthcare Patients: https://www.[employer]/Documents/Xp ert%20Xpress%20SAR S%20CoV-2/Fact%20S heets/302-3801%20S ARS-COV-2%20PATIEN T%20FACT%20SHEET.p df Lab Interpretation Normal (test code = 12882-8) [facility])2022-03-06 19:17:07 Test Item Value Reference Range Interpretation Comments SARS-COV2/RT-PCR Negative Negative The SARS-Co V-2 target (test code = nucleic acids a re not 4133203) detected in thi s specimen. Negative result [...] revoked sooner. Fact Sheet for Healthcare Providers: https://www.[employer] m/Documents/Xpert%20Xpress%20SARS%20CoV-2/Fact%20Sheets/302-3802%38SBQS-QJE-6%20 HEALTHCARE%20PROVIDERS%20FACT%20SHEET.pdf Fact Sheet for Healthcare Patients: https://www.[employer]/Documents/Xpert%20Xp ress%20SARS%20CoV-2/Fact%20Sheets/302-3801%03IFFE-CSU-2%20PATIENT%20FACT%20SHEET .pdfCREATINE KINASE (CK)2022-03-06 16:19:14 Test Item Value Reference Range Interpretation Comments CREATINE KINASE TOTAL (BEAKER) (test 141 U/L 29-200 code = 380) Software Qa System Specialist ID - BST4, [id number] 15:13:16 Test Item Value Reference Range Interpretation Comments FREE T4 (BEAKER) (test code = 655) 0.95 ng/dL 0.70-1.48 Software Qa System Specialist ID - BSTSH/FREE T4 IF [id number] 15:13:16 Test Item Value Reference Range Interpretation Comments THYROID STIMULATING HORMONE 2.060 uIU/mL 0.350-4.940 (BEAKER) (test code = 772) Software Qa System Specialist ID - BSB-TYPE NATRIURETIC FACTOR (BNP)2022-03-06 14:26:30 Test Item Value Reference Range Interpretation Comments B-TYPE NATRIURETIC PEPTIDE (BEAKER) < pg/mL 0-100 (test code = 700) Software Qa System Specialist ID - JSHIGH SENSITIVITY TROPONIN [id number] 14:14:54 Test Item Value Reference Range Interpretation Comments HIGH SENSITIVITY < pg/ml See_Comment [Automated message] TROPONIN I (test code = The system which 0924364) generated this result transmitted ref erence range: <=35. Th e reference range was not used to interpr et this result as normal/abnormal . Software Qa System Specialist ID - JSThe RETAIL EXPERIENCE SPECIALIST STAT High Sensitivity Troponin-I results should be used in conjunctionwith other diagnostic information such as ECG, clinical observations and information, and patient symptoms to aid in the diagnosis of MO.RAD, CHEST, 1 VIEW, NON [id number] 14:10:00Reason for exam:- >NEUROLOGIC PROBLEMShould this be performed at the bedside?->Yes [facility] : 1970 Sex: MFINAL REPORT Chest, 1 view, 03/06/2022 2:03 PM. History: Neurologic problem. Comparison: 03/28/2019. Discussion: The cardiomediastinal silhouette and pulmonary vasculature are within normal limits for a portable exam. The lungs are clear without evidence of consolidation or effusion. The soft tissues and osseous structures are intact. IMPRESSION: No acute cardiopulmonary abnormality. Signed: [facility] Verified Date/Time: 03/06/2022 14:10:44 REHENSIVE METABOLIC [id number] 14:08:22 Test Item Value Reference Range Interpretation [...] S NOT APPLICABLE FOR DIALYSIS PATIEN TS. Software Qa System Specialist ID - [id number] 14:07:49 Test Item Value Reference Range Interpretation Comments MAGNESIUM (BEAKER) (test code = 2.0 mg/dL 1.6-2.6 627) Software Qa System Specialist ID - [id number] 14:07:49 Test Item Value Reference Range Interpretation Comments PHOSPHORUS (BEAKER) (test code = 5.6 mg/dL 2.3-4.7 H 604) Software Qa System Specialist ID - JSLACTIC ACID, [id number] 13:51:04 Test Item Value Reference Range Interpretation Comments LACTATE BLOOD VENOUS 1.32 mmol/L 0.50-2.20 Specime n slightly (2) (BEAKER) (test hemolyzed code = 9981) Software Qa System Specialist ID - JSCBC W/PLT COUNT & AUTO [id number] 13:47:24 Test Item Value Reference Range Interpretation [...] (BEAKER) (test code = 2801) Coronavirus, CoVID-19, [id number] 01:07:20 Test Item Value Reference Range Interpretation Comments COVID-19 (SARS-COV-2) Not Detected Not Detected INTERP RETATION: No (test code = 34624-3) detect able levels of SARS-CoV-2 Coronavirus (COVID-19) [...] SARS-CoV-2 mole cular diagnostic assa y utilizes [facility] Licensed Practical Nurse Mediated Amplification ( TMA) technology to r apidly detect the SARS -CoV-2 (COVID-19) viru s from respiratory adriana ples. In accordance w ith the FDA's kamran nce document "Polic y for Diagnostic Test s for Coronavirus Disease-2019 [facility]", thi s test was developed, and its performance characteristics were verified by the [facility] molecular diagn ostics laboratory and is authorized for clinical diagno stic use. This labor atory is certified un estevan the Clinical Laboratory Improvement Amendments (CLI A) as qualified to pe rform high complexity clinical labora tory testing. Lab Interpretation Normal (test code = 08289-5) [facility] [id number] 01:07:20 Test Item Value Reference Range Interpretation Comments COVID-19 (SARS-COV-2) Not Detected Not Detected INTERP RETATION: No (test code = 87526-6) detect able levels of SARS-CoV-2 Coronavirus (COVID-19) [...] SARS-CoV-2 mole cular diagnostic assa y utilizes Clinic Licensed Practical Nurse Mediated Amplification ( TMA) technology to r apidly detect the SARS -CoV-2 (COVID-19) viru s from respiratory adriana ples. In accordance w ith the FDA's kamran nce document "Polic y for Diagnostic Test s for Coronavirus Disease-2019 [facility] Emergency", thi s test was developed, and its performance characteristics were verified by the [facility] molecular diagn ostics laboratory and is authorized for clinical diagno stic use. This labor atory is certified un estevan the Clinical Laboratory Improvement Amendments (CLI A) as qualified to pe rform high complexity clinical labora tory testing. Lab Interpretation Normal (test code = 73216-9) [facility], [id number] 01:07:20 Test Item Value Reference Range Interpretation Comments COVID-19 (SARS-COV-2) Not Detected Not Detected INTERP RETATION: No (test code = 32480-9) detect able levels of SARS-CoV-2 Coronavirus (COVID-19) [...] SARS-CoV-2 mole cular diagnostic assa y utilizes Clinic Licensed Practical Nurse Mediated Amplification ( TMA) technology to r apidly detect the SARS -CoV-2 (COVID-19) viru s from respiratory adriana ples. In accordance w ith the FDA's kamran nce document "Polic y for Diagnostic Test s for Coronavirus Disease-2019 [facility] Emergency", thi s test was developed, and its performance characteristics were verified by the [facility] molecular diagn ostics laboratory and is authorized for clinical diagno stic use. This labor atory is certified un estevan the Clinical Laboratory Improvement Amendments (CLI A) as qualified to pe rform high complexity clinical labora tory testing. Lab Interpretation Normal (test code = 40849-8) [facility], [id number] 01:07:20 Test Item Value Reference Range Interpretation Comments COVID-19 (SARS-COV-2) Not Detected Not Detected INTERP RETATION: No (test code = 17074-1) detect able levels of SARS-CoV-2 Coronavirus (COVID-19) [...] SARS-CoV-2 mole cular diagnostic assa y utilizes Clinic Licensed Practical Nurse Mediated Amplification ( TMA) technology to r apidly detect the SARS -CoV-2 (COVID-19) viru s from respiratory adriana ples. In accordance w ith the FDA's kamran nce document "Polic y for Diagnostic Test s for Coronavirus Disease-2019 [facility] Emergency", thi s test was developed, and its performance characteristics were verified by the [facility] molecular diagn ostics laboratory and is authorized for clinical diagno stic use. This labor atory is certified un estevan the Clinical Laboratory Improvement Amendments (CLI A) as qualified to pe rform high complexity clinical labora tory testing. Lab Interpretation Normal (test code = 05348-0) [facility], CoVID-19, [id number] 01:07:20 Test Item Value Reference Range Interpretation Comments COVID-19 (SARS-COV-2) Not Detected Not Detected INTERP RETATION: No (test code = 42505-9) detect able levels of SARS-CoV-2 Coronavirus (COVID-19) [...] SARS-CoV-2 mole cular diagnostic assa y utilizes Clinic Licensed Practical Nurse Mediated Amplification ( TMA) technology to r apidly detect the SARS -CoV-2 (COVID-19) viru s from respiratory adriana ples. In accordance w ith the FDA's kamran nce document "Polic y for Diagnostic Test s for Coronavirus Disease-2019 du ring the [facility] Emergency", thi s test was developed, and its performance characteristics were verified by the [facility] molecular diagn ostics laboratory and is authorized for clinical diagno stic use. This labor atory is certified un estevan the Clinical Laboratory Improvement Amendments (CLI A) as qualified to pe rform high complexity clinical labora tory testing. Lab Interpretation Normal (test code = 06939-1) [facility], CoVID-19, [id number] 01:07:20 Test Item Value Reference Range Interpretation Comments COVID-19 (SARS-COV-2) Not Detected Not Detected INTERP RETATION: No (test code = 07043-9) detect able levels of SARS-CoV-2 Coronavirus (COVID-19) [...] SARS-CoV-2 mole cular diagnostic assa y utilizes Clinic Licensed Practical Nurse Mediated Amplification ( TMA) technology to r apidly detect the SARS -CoV-2 (COVID-19) viru s from respiratory adriana ples. In accordance w ith the FDA's kamran nce document "Polic y for Diagnostic Test s for Coronavirus Disease-2019 [facility]", thi s test was developed, and its performance characteristics were verified by the [facility] molecular diagn ostics laboratory and is authorized for clinical diagno stic use. This labor atory is certified un estevan the Clinical Laboratory Improvement Amendments (CLI A) as qualified to pe rform high complexity clinical labora tory testing. Lab Interpretation Normal (test code = 44577-8) [facility], [id number] 01:07:20 Test Item Value Reference Range Interpretation Comments COVID-19 (SARS-COV-2) Not Detected Not Detected INTERP RETATION: No (test code = 52096-5) detect able levels of SARS-CoV-2 Coronavirus (COVID-19) [...] SARS-CoV-2 mole cular diagnostic assa y utilizes Clinic Licensed Practical Nurse Mediated Amplification ( TMA) technology to r apidly detect the SARS -CoV-2 (COVID-19) viru s from respiratory adriana ples. In accordance w ith the FDA's kamran nce document "Polic y for Diagnostic Test s for Coronavirus Disease-2019 [facility] Emergency", thi s test was developed, and its performance characteristics were verified by the [facility] molecular diagn ostics laboratory and is authorized for clinical diagno stic use. This labor atory is certified un estevan the Clinical Laboratory Improvement Amendments (CLI A) as qualified to pe rform high complexity clinical labora tory testing. Lab Interpretation Normal (test code = 44909-1) [facility], [id number] 01:07:20 Test Item Value Reference Range Interpretation Comments COVID-19 (SARS-COV-2) Not Detected Not Detected INTERP RETATION: No (test code = 76013-9) detect able levels of SARS-CoV-2 Coronavirus (COVID-19) [...] SARS-CoV-2 mole cular diagnostic assa y utilizes Clinic Licensed Practical Nurse Mediated Amplification ( TMA) technology to r apidly detect the SARS -CoV-2 (COVID-19) viru s from respiratory adriana ples. In accordance w ith the FDA's kamran nce document "Polic y for Diagnostic Test s for Coronavirus Disease-2019 du ring the [facility] Emergency", thi s test was developed, and its performance characteristics were verified by the [facility] molecular diagn ostics laboratory and is authorized for clinical diagno stic use. This labor atory is certified un estevan the Clinical Laboratory Improvement Amendments (CLI A) as qualified to pe rform high complexity clinical labora tory testing. Lab Interpretation Normal (test code = 20032-1) [facility], CoVID-19, [id number] 01:07:20 Test Item Value Reference Range Interpretation Comments COVID-19 (SARS-COV-2) Not Detected Not Detected INTERP RETATION: No (test code = 98478-8) detect able levels of SARS-CoV-2 Coronavirus (COVID-19) [...] SARS-CoV-2 mole cular diagnostic assa y utilizes Clinic Licensed Practical Nurse Mediated Amplification ( TMA) technology to r apidly detect the SARS -CoV-2 (COVID-19) viru s from respiratory adriana ples. In accordance w ith the FDA's kamran nce document "Polic y for Diagnostic Test s for Coronavirus Disease-2019 du [facility]", thi s test was developed, and its performance characteristics were verified by the [facility] molecular diagn ostics laboratory and is authorized for clinical diagno stic use. This labor atory is certified un estevan the Clinical Laboratory Improvement Amendments (CLI A) as qualified to pe rform high complexity clinical labora tory testing. Lab Interpretation Normal (test code = 08830-1) [facility], CoVID-19, [id number] 01:07:20 Test Item Value Reference Range Interpretation Comments COVID-19 (SARS-COV-2) Not Detected Not Detected INTERP RETATION: No (test code = 65073-2) detect able levels of SARS-CoV-2 Coronavirus (COVID-19) [...] SARS-CoV-2 mole cular diagnostic assa y utilizes Clinic Licensed Practical Nurse Mediated Amplification ( TMA) technology to r apidly detect the SARS -CoV-2 (COVID-19) viru s from respiratory adriana ples. In accordance w ith the FDA's kamran nce document "Polic y for Diagnostic Test s for Coronavirus Disease-2019 [facility] Emergency", thi s test was developed, and its performance characteristics were verified by the [facility] molecular diagn ostics laboratory and is authorized for clinical diagno stic use. This labor atory is certified un estevan the Clinical Laboratory Improvement Amendments (CLI A) as qualified to pe rform high complexity clinical labora tory testing. Lab Interpretation Normal (test code = 52882-0) [facility], [id number] 01:07:20 Test Item Value Reference Range Interpretation Comments COVID-19 (SARS-COV-2) Not Detected Not Detected INTERP RETATION: No (test code = 11946-8) detect able levels of SARS-CoV-2 Coronavirus (COVID-19) [...] SARS-CoV-2 mole cular diagnostic assa y utilizes Clinic Licensed Practical Nurse Mediated Amplification ( TMA) technology to r apidly detect the SARS -CoV-2 (COVID-19) viru s from respiratory adriana ples. In accordance w ith the FDA's kamran nce document "Polic y for Diagnostic Test s for Coronavirus Disease-2019 [facility]", thi s test was developed, and its performance characteristics were verified by the [facility] molecular diagn ostics laboratory and is authorized for clinical diagno stic use. This labor atory is certified un estevan the Clinical Laboratory Improvement Amendments (CLI A) as qualified to pe rform high complexity clinical labora tory testing. Lab Interpretation Normal (test code = 63279-8) [facility], [id number] 01:07:20 Test Item Value Reference Range Interpretation Comments COVID-19 (SARS-COV-2) Not Detected Not Detected INTERP RETATION: No (test code = 50825-7) detect able levels of SARS-CoV-2 Coronavirus (COVID-19) [...] SARS-CoV-2 mole cular diagnostic assa y utilizes Clinic Licensed Practical Nurse Mediated Amplification ( TMA) technology to r apidly detect the SARS -CoV-2 (COVID-19) viru s from respiratory adriana ples. In accordance w ith the FDA's kamran nce document "Polic y for Diagnostic Test s for Coronavirus Disease-2019 du ring the [facility] Emergency", thi s test was developed, and its performance characteristics were verified by the [facility] molecular diagn ostics laboratory and is authorized for clinical diagno stic use. This labor atory is certified un estevan the Clinical Laboratory Improvement Amendments (CLI A) as qualified to pe rform high complexity clinical labora tory testing. Lab Interpretation Normal (test code = 10453-0) [facility], CoVID-19, [id number] 01:07:20 Test Item Value Reference Range Interpretation Comments COVID-19 (SARS-COV-2) Not Detected Not Detected INTERP RETATION: No (test code = 81347-5) detect able levels of SARS-CoV-2 Coronavirus (COVID-19) [...] SARS-CoV-2 mole cular diagnostic assa y utilizes Clinic Licensed Practical Nurse Mediated Amplification ( TMA) technology to r apidly detect the SARS -CoV-2 (COVID-19) viru s from respiratory adriana ples. In accordance w ith the FDA's kamran nce document "Polic y for Diagnostic Test s for Coronavirus Disease-2019 du ring the [facility]", thi s test was developed, and its performance characteristics were verified by the [facility] molecular diagn ostics laboratory and is authorized for clinical diagno stic use. This labor atory is certified un estevan the Clinical Laboratory Improvement Amendments (CLI A) as qualified to pe rform high complexity clinical labora tory testing. Lab Interpretation Normal (test code = 99868-4) [facility], [id number] 01:07:20 Test Item Value Reference Range Interpretation Comments COVID-19 (SARS-COV-2) Not Detected Not Detected INTERP RETATION: No (test code = 36662-2) detect able levels of SARS-CoV-2 Coronavirus (COVID-19) [...] SARS-CoV-2 mole cular diagnostic assa y utilizes Clinic Licensed Practical Nurse Mediated Amplification ( TMA) technology to r apidly detect the SARS -CoV-2 (COVID-19) viru s from respiratory adriana ples. In accordance w ith the FDA's kamran nce document "Polic y for Diagnostic Test s for Coronavirus Disease-2019 [facility] Emergency", thi s test was developed, and its performance characteristics were verified by the [facility] molecular diagn ostics laboratory and is authorized for clinical diagno stic use. This labor atory is certified un estevan the Clinical Laboratory Improvement Amendments (CLI A) as qualified to pe rform high complexity clinical labora tory testing. Lab Interpretation Normal (test code = 63172-8) [facility] ORF1ab Resp Ql [id number] 01:07:20 Test Item Value Reference Range Interpretation Comments Hospitalized? (test No code = 27524-6) ICU? (test code = No 86140-3) Symptomatic as No defined by CDC? (test code = 87507-0) Employed in No Healthcare? (test code = 80824-3) Resident in a No congregate care setting (including nursing homes, residential care for people with intellectual and developmental disabilities, psychiatric treatment facilities, group homes, board and care homes, homeless nursing home, foster care or other): (test code = 12477-9) SARS-CoV-2 ORF1ab NOT DETECTED Not Detected INTERPRETA TION: No Resp Ql OLENA+probe detectable levels of (test code = SARS-CoV-2 43033-5) Coronavirus (COVID-19) were present in this patient's [...] SARS-CoV-2 mole cular diagnostic assa y utilizes Clinic Licensed Practical Nurse Mediated Amplification ( TMA) technology to r apidly detect the SARS -CoV-2 (COVID-19) viru s from respiratory adriana ples. In accordance with\\XC2A0\\the FDA's guidance docume nt "Policy for Diagnostic Test s for Coronavirus Disease-2019 du [facility] Emergency", ginger s test was developed, and its performance characteristics were verified by the [facility] molecular diagn ostics laboratory and is authorized for clinical diagno stic use. \\XC2A0\\Thi s laboratory is certified under the Clinical Labora tory Improvement Amendments (CLI A) as qualified to pe rform high complexity clinical labora tory testing. [facility]ed [id number] 08:09:01 Test Item Value Reference Range Interpretation Comments Glucose POC (test code = 30212854) 85 mg/dL 74-106 Lab Interpretation (test code = Normal 82824-5) [facility] GLUCOSE POC docked [id number] 08:09:01 Test Item Value Reference Range Interpretation Comments Glucose POC (test code = 87011526) 85 mg/dL 74-106 Lab Interpretation (test code = Normal 36142-1) [facility] GLUCOSE POC docked atpzrv0815-81-99 08:09:01 Test Item Value Reference Range Interpretation Comments Glucose POC (test code = 70547731) 85 mg/dL 74-106 Lab Interpretation (test code = Normal 76652-1) [facility] GLUCOSE POC docked bxtmqx7775-66-45 08:09:01 Test Item Value Reference Range Interpretation Comments Glucose POC (test code = 09868303) 85 mg/dL 74-106 Lab Interpretation (test code = Normal 40129-5) [facility] azxogm7795-36-76 08:09:01 Test Item Value Reference Range Interpretation Comments Glucose POC (test code = 00129069) 85 mg/dL 74-106 Lab Interpretation (test code = Normal 77137-4) [facility] tqyaco8749-63-78 08:09:01 Test Item Value Reference Range Interpretation Comments Glucose POC (test code = 62153213) 85 mg/dL 74-106 Lab Interpretation (test code = Normal 50575-4) [facility] pkhejs0119-79-92 08:09:01 Test Item Value Reference Range Interpretation Comments Glucose POC (test code = 08675199) 85 mg/dL 74-106 Lab Interpretation (test code = Normal 32126-1) [facility] lpuydy8048-31-58 08:09:01 Test Item Value Reference Range Interpretation Comments Glucose POC (test code = 05472523) 85 mg/dL 74-106 Lab Interpretation (test code = Normal 86118-0) [facility] lyddkt6240-57-60 08:09:01 Test Item Value Reference Range Interpretation Comments Glucose POC (test code = 86906299) 85 mg/dL 74-106 Lab Interpretation (test code = Normal 96749-7) [facility] yjhrwc0061-83-35 08:09:01 Test Item Value Reference Range Interpretation Comments Glucose POC (test code = 15300477) 85 mg/dL 74-106 Lab Interpretation (test code = Normal 94752-7) [facility] nzpifd9509-47-91 08:09:01 Test Item Value Reference Range Interpretation Comments Glucose POC (test code = 20475790) 85 mg/dL 74-106 Lab Interpretation (test code = Normal 24300-9) [facility] unaadh4915-05-52 08:09:01 Test Item Value Reference Range Interpretation Comments Glucose POC (test code = 93812254) 85 mg/dL 74-106 Lab Interpretation (test code = Normal 37771-7) [facility] GLUCOSE POC docked mvoyyz8957-11-12 08:09:01 Test Item Value Reference Range Interpretation Comments Glucose POC (test code = 16785549) 85 mg/dL 74-106 Lab Interpretation (test code = Normal 49497-5) [facility] GLUCOSE POC docked xpycwv6620-98-40 08:09:01 Test Item Value Reference Range Interpretation Comments Glucose POC (test code = 42135923) 85 mg/dL 74-106 Lab Interpretation (test code = Normal 45233-9) [facility] ORF1ab Resp Ql OLENA+ylzva5444-58-95 23:25:40 Test Item Value Reference Range Interpretation Comments Hospitalized? (test No code = 20213-5) ICU? (test code = No 36292-6) Symptomatic as No defined by CDC? (test code = 19487-6) Employed in No Healthcare? (test code = 20213-1) Resident in a No congregate care setting (including nursing homes, residential care for people with intellectual and developmental disabilities, psychiatric treatment facilities, group homes, board and care homes, homeless nursing home, foster care or other): (test code = 80448-2) SARS-CoV-2 ORF1ab NOT DETECTED Not Detected INTERPRETA TION: No Resp Ql OLENA+probe detectable levels of (test code = SARS-CoV-2 09500-2) Coronavirus (COVID-19) were present in this patient's [...] SARS-CoV-2 mole cular diagnostic assa y utilizes Clinic Licensed Practical Nurse Mediated Amplification ( TMA) technology to r apidly detect the SARS -CoV-2 (COVID-19) viru s from respiratory adriana ples. In accordance with\\XC2A0\\the FDA's guidance docume nt "Policy for Diagnostic Test s for Coronavirus Disease-2019 du ring the [facility] Emergency", ginger s test was developed, and its performance characteristics were verified by the [facility] molecular diagn ostics laboratory and is authorized for clinical diagno stic use. \\XC2A0\\Ginger s laboratory is certified under the Clinical Labora tory Improvement Amendments (CLI A) as qualified to pe rform high complexity clinical labora tory testing. [facility]12 Lead [id number] 15:46:1012 LEAD EKG FOR [facility] Test Date: 7588-69-40Xmc Name: DORA JOSEPH Department: 5ECIPatient ID: [id number] Room: Gender: M Network Analyst: [id number]: 1970 Requested By: DARRION Cho Number: [id number] Reading MD: Rene Patterson MeasurementsIntervals [place] Rate: 61 P: 72PR: 152 QRS: 55QRSD: 106 T: 63QT: 398 QTc: 400 Interpretive StatementsSINUS RHYTHMPOSSIBLE RIGHT VENTRICULAR CONDUCTION DELAY [RSR (QR) IN V1/V2]Electronically Signed On 01-22-2022 8:30:45 CDT by Rene AvitiaPhokkiCompaBinary Thumb [place] [address] Lead [id number] 15:46:1012 LEAD EKG FOR [facility] Test Date: 5256-95-54Lhy Name: DORA JOSEPH Department: 5ECIPatient ID: [id number] Room: Gender: M Network Analyst: [id number]: 1970 Requested By: DARRION Cho Number: [id number] Reading MD: Rene Patterson MeasurementsIntervals [place] Rate: 61 P: 72PR: 152 QRS: 55QRSD: 106 T: 63QT: 398 QTc: 400 Interpretive StatementsSINUS RHYTHMPOSSIBLE RIGHT VENT RICULAR CONDUCTION DELAY [RSR (QR) IN V1/V2]Electronically Signed On 01-22-2022 8:30:45 CDT [address]PA[address] Vincent HospitalBinary Thumb [place] [address] Lead [id number] 15:46:1012 LEAD EKG FOR [facility] Test Date: 7186-86-37Lom Name: DORA JOSEPH Department: 5ECIPatient ID: [id number] Room: Gender: M Network Analyst: [id number]: 1970 Requested By: DARRION Cho Number: [id number] Reading MD: Rene Patterson MeasurementsIntervals [place] Rate: 61 P: 72PR: 152 QRS: 55QRSD: 106 T: 63QT: 398 QTc: 400 Interpretive StatementsSINUS RHYTHMPOSSIBLE RIGHT VENTRICULAR CONDUCTION DELAY [RSR (QR) IN V1/V2]Electronically Signed On 01-22-2022 8:30:45 CDT by Rene CodasipChrisPhokkiCompagallup [facility] center Ssdpvk25 Lead [id number] 15:46:1012 LEAD EKG FOR [facility] Test Date: 6830-87-07Xdm Name: DORA JOSEPH Department: 5ECIPatient ID: [id number] Room: Gender: M Network Analyst: [id number]: 1970 Requested By: DARRION Cho Number: [id number] Reading MD: Rene Patterson MeasurementsIntervals [place] Rate: 61 P: 72PR: 152 QRS: 55QRSD: 106 T: 63QT: 398 QTc: 400 Interpretive StatementsSINUS RHYTHMPOSSIBLE RIGHT VENTRICULAR CONDUCTION DELAY [RSR (QR) IN V1/V2]Electronically Signed On 01-22-2022 8:30:45 CDT by Renerick AvitiaPhokkiCompagallup indian medical center Odgojg38 Lead [id number] 15:46:1012 LEAD EKG FOR [facility] Test Date: 7604-52-40Rog Name: DORA JOSEPH Department: 5ECIPatient ID: [id number] Room: Gender: M Network Analyst: [id number]: 1970 Requested By: DARRION Cho Number: [id number] Reading MD: Rene Patterson MeasurementsIntervals [place] Rate: 61 P: 72PR: 152 QRS: 55QRSD: 106 T: 63QT: 398 QTc: 400 Interpretive StatementsSINUS RHYTHMPOSSIBLE RIGHT VENTRICULAR CONDUCTION DELAY [RSR (QR) IN V1/V2]Electronically Signed On 01-22-2022 8:30:45 CDT by [facility]12 Lead [id number] 15:46:1012 LEAD EKG FOR [facility] Test Date: 5410-81-92Mio Name: DORA JOSEPH Department: 5ECIPatient ID: [id number] Room: Gender: M Network Analyst: [id number]: 1970 Requested By: DARRION Cho Number: [id number] Reading MD: Rene Pattesron MeasurementsIntervals [place] Rate: 61 P: 72PR: 152 QRS: 55QRSD: 106 T: 63QT: 398 QTc: 400 Interpretive StatementsSINUS RHYTHMPOSSIBLE RIGHT VENTR ICULAR CONDUCTION DELAY [RSR (QR) IN V1/V2]Electronically Signed On 01-22-2022 8:30:45 CDT by [place] [address] Lead 15:46:1012 LEAD EKG FOR [facility] Test Date: 4114-17-80Lih Name: DORA JOSEPH Department: 5ECIPatient ID: [id number] Room: Gender: M Network Analyst: [id number]: 1970 Requested By: DARRION Cho Number: [id number] Reading MD: Rene Patterson MeasurementsIntervals [place] Rate: 61 P: 72PR: 152 QRS: 55QRSD: 106 T: 63QT: 398 QTc: 400 Interpretive StatementsSINUS RHYTHMPOSSIBLE RIGHT VENTRICULAR CONDUCTION DELAY [RSR (QR) IN V1/V2]Electronically Signed On 01-22-2022 8:30:45 CDT by [facility]12 Lead [id number] 15:46:1012 LEAD EKG FOR [facility] Test Date: 5034-99-21Plm Name: DORA JOSEPH Department: 5ECIPatient ID: [id number] Room: Gender: M Network Analyst: [id number]: 1970 Requested By: DARRION Cho Number: [id number] Reading MD: Rene Patterson MeasurementsIntervals [place] Rate: 61 P: 72PR: 152 QRS: 55QRSD: 106 T: 63QT: 398 QTc: 400 Interpretive StatementsSINUS RHYTHMPOSSIBLE RIGHT VENTRICULAR CONDUCTION DELAY [RSR (QR) IN V1/V2]Electronically Signed On 01-22-2022 8:30:45 CDT by Rene RaanSRIHarris Ygpsfq47 Lead [id number] 15:46:1012 LEAD EKG FOR [facility] Test Date: 9604-55-21Fry Name: DORA JOSEPH Department: 5ECIPatient ID: [id number] Room: Gender: M Network Analyst: [id number]: 1970 Requested By: DARRION Cho Number: [id number] Reading MD: Rene Patterson MeasurementsIntervals [place] Rate: 61 P: 72PR: 152 QRS: 55QRSD: 106 T: 63QT: 398 QTc: 400 Interpretive StatementsSINUS RHYTHMPOSSIBLE RIGHT VENTRICULAR CONDUCTION DELAY [RSR (QR) IN V1/V2]Electronically Signed On 01-22-2022 8:30:45 CDT by Rene [facility]umbullDebbyEly[facility]12 Lead [id number] 15:46:1012 LEAD EKG FOR [facility] Test Date: 2714-44-22Qsg Name: DORA JOSEPH Department: 5ECIPatient ID: [id number] Room: Gender: M Network Analyst: [id number]: 1970 Requested By: DARRION Cho Number: [id number] Reading MD: Rene Patterson MeasurementsIntervals [place] Rate: 61 P: 72PR: 152 QRS: 55QRSD: 106 T: 63QT: 398 QTc: 400 Interpretive StatementsSINUS RHYTHMPOSSIBLE RIGHT VENTRI CULAR CONDUCTION DELAY [RSR (QR) IN V1/V2]Electronically Signed On 01-22-2022 8:30:45 CDT by Rene [facility] TrumbullDebbyCrittenden County Hospitalris Ogaskg39 Lead [id number] 15:46:1012 LEAD EKG FOR [facility] Test Date: 8991-64-35Hqd Name: DORA JOSEPH Department: 5ECIPatient ID: [id number] Room: Gender: M Network Analyst: [id number]: 1970 Requested By: DARRION Cho Number: [id number] Reading MD: Rene Patterson MeasurementsIntervals [place] Rate: 61 P: 72PR: 152 QRS: 55QRSD: 106 T: 63QT: 398 QTc: 400 Interpretive StatementsSINUS RHYTHMPOSSIBLE RIGHT VENTRICULAR CONDUCTION DELAY [RSR (QR) IN V1/V2]Electronically Signed On 01-22-2022 8:30:45 CDT by Renerick Valle Eylhcb75 Lead [id number] 15:46:1012 LEAD EKG FOR [facility] Test Date: 0762-32-05Ojo Name: DORA JOSEPH Department: 5EPatient ID: [id number] Room: Gender: M Network Analyst: [id number]: 1970 Requested By: DARRION Cho Number: [id number] Reading MD: Rene Patterson MeasurementsIntervals [place] Rate: 61 P: 72PR: 152 QRS: 55QRSD: 106 T: 63QT: 398 QTc: 400 Interpretive StatementsSINUS RHYTHMPOSSIBLE RIGHT VENTRICULAR CONDUCTION DELAY [RSR (QR) IN V1/V2]Electronically Signed On 01-22-2022 8:30:45 CDT by Rene SadiPhokkiCompaBancore A/S12 Lead [id number] 15:46:1012 LEAD EKG FOR [facility] Test Date: 4812-71-46Fdy Name: DORA PAEZRY Department: 5EPatient ID: [id number] Room: Gender: M Network Analyst: [id number]: 1970 Requested By: DARRION Cho Number: [id number] Reading MD: Rene Patterson MeasurementsIntervals [place] Rate: 61 P: 72PR: 152 QRS: 55QRSD: 106 T: 63QT: 398 QTc: 400 Interpretive StatementsSINUS RHYTHMPOSSIBLE RIGHT VENTRICULAR CONDUCTION DELAY [RSR (QR) IN V1/V2]Electronically Signed On 01-22-2022 8:30:45 CDT by Rene SadiPhokkiCompagallup indian medical center Tihkpa25 Lead [id number] 15:46:1012 LEAD EKG FOR [facility] Test Date: 2832-78-73Ktd Name: DORA JOSEPH [id number] Room: Gender: M Network Analyst: [id number]: 1970 Requested By: DARRION Cho Number: [id number] Reading MD: Rene Patterson MeasurementsIntervals [place] Rate: 61 P: 72PR: 152 QRS: 55QRSD: 106 T: 63QT: 398 QTc: 400 Interpretive StatementsSINUS RHYTHMPOSSIBLE RIGHT VENTRI CULAR CONDUCTION DELAY [RSR (QR) IN V1/V2]Electronically Signed On 01-22-2022 8:30:45 CDT by Rene Valle [facility] 1+2 Ab+HIV1 p24 Ag SerPl Ql [place] 2022-01-18 07:02:58 Test Item Value Reference Range Interpretation Comments HIV 1+2 Ab+HIV1 p24 Ag SerPl Ql [place] NEGATIVE Negative (test code = 25619-5) [id number] 21:23:2512 LEAD EKG FOR [facility] Test Date: 1285-15-63Uil Name: DORA JOSEPH Department: 5520Patient ID: [id number] Room: 1H29Gxneqe: M Network Analyst: : 1970 Requested By: JESSICA Ryan Number: [id number] Reading MD: Chiara Calles MeasurementsIntervals [place] Rate: 72 P: 90PR:157 QRS: 87QRSD: 105 T: 90QT: 360 QTc: 384 Interpretive StatementsSINUS RHYTHMPOSSIBLE RIGHT VENTRICULAR CONDUCTION DELAY [RSR (QR) IN V1/V2]EARLY REPOLARIZATION [ST ELEVATION WITH NORMALLY INFLECTED T- WAVE]Electronically Signed On 01-17-2022 13:02:30 CDT by Chiara DavisTony [place] [address]0022-05-26 21:23:2512 LEAD EKG FOR [facility] Test Date: 2497-15-92Uzw Name: DORA JOSEPH Department: 5520Patient ID: [id number] Room: 7O42Udwuam: M Network Analyst: : 1970 Requested By: KARIN BASSETT AOrder Number: [id number] Reading MD: Chiara Calles MeasurementsIntervals [place] Rate: 72 P: 90PR:157 QRS: 87QRSD: 105 T: 90QT: 360 QTc: 384 Interpretive StatementsSINUS RHYTHMPOSSIBLE RIGHT VENTRICULAR CONDUCTION DELAY [RSR (QR) IN V1/V2]EARLY REPOLARIZATION [ST ELEVATION WITH NORMALLY INFLECTED T- WAVE]Electronically Signed On 01-17-2022 13:02:30 CDT by [facility] HomeJabMichael [place] [address]UyosvzBWV0796-71-37 21:23:2512 LEAD EKG FOR [facility] Test Date: 7250-53-46Tig Name: DORA JOSEPH Department: 5520Patient ID: [id number] Room: 6R25Uhcqax: M Network Analyst: : 1970 Requested By: KARIN BASSETT AOrder Number: [id number] Reading MD: Chiara Calles MeasurementsIntervals [place] Rate: 72 P: 90PR:157 QRS: 87QRSD: 105 T: 90QT: 360 QTc: 384 Interpretive StatementsSINUS RHYTHMPOSSIBLE RIGHT VENTRICULAR CONDUCTION DELAY [RSR (QR) IN V1/V2]EARLY REPOLARIZATION [ST ELEVATION WITH NORMALLY INFLECTED T- WAVE]Electronically Signed On 01-17-2022 13:02:30 CDT by [facility] HospitalTrendy MondaysMichael [place] [address]MshbumPIV0741-11-29 21:23:2512 LEAD EKG FOR [facility] Test Date: 7781-00-61Cmr Name: DORA JOSEPH Department: 5520Patient ID: [id number] Room: 9D91Swrioa: M Network Analyst: : 1970 Requested By: KARIN BASSETT AOrder Number: [id number] Reading MD: Chiara Calles MeasurementsIntervals [place] Rate: 72 P: 90PR:157 QRS: 87QRSD: 105 T: 90QT: 360 QTc: 384 Interpretive StatementsSINUS RHYTHMPOSSIBLE RIGHT VENTRICULAR CONDUCTION DELAY [RSR (QR) IN V1/V2]EARLY REPOLARIZATION [ST ELEVATION WITH NORMALLY INFLECTEDT- WAVE]Electronically Signed On 01-17-2022 13:02:30 CDT by [facility] HomeJabMichael [place] [address]TytnhrFVA8089-77-35 21:23:2512 LEAD EKG FOR [facility] Test Date: 0258-11-69Ill Name: DORA JOSEPH Department: 5520Patient ID: [id number] Room: 7M08Ymchhx: M Network Analyst: : 1970 Requested By: KARIN BASSETT AOrder Number: [id number] Reading MD: Chiara Calles MeasurementsIntervals [place] Rate: 72 P: 90PR: 157 QRS: 87QRSD: 105 T: 90QT: 360 QTc: 384 Interpretive StatementsSINUS RHYTHMPOSSIBLE RIGHT VENTRICULAR CONDUCTION DELAY [RSR (QR) IN V1/V2]EARLY REPOLARIZATION [ST ELEVATION WITH NORMALLY INFLECTED T-W AVE]Electronically Signed On 01-17-2022 13:02:30 CDT by [facility] HomeJabMichael [place] [address]RxutjtEBD4997-06-30 21:23:2512 LEAD EKG FOR [facility] Test Date: 2355-06-56Bkr Name: DORA JOSEPH Department: 5520Patient ID: [id number] Room: 9B35Sfwdbz: M Network Analyst: : 1970 Requested By: JESSICA AOrder Number: [id number] Reading MD: Chiara Calles MeasurementsIntervals [place] Rate: 72 P: 90PR:157 QRS: 87QRSD: 105 T: 90QT: 360 QTc: 384 Interpretive StatementsSINUS RHYTHMPOSSIBLE RIGHT VENTRICULAR CONDUCTION DELAY [RSR (QR) IN V1/V2]EARLY REPOLARIZATION [ST ELEVATION WITH NORMALLY INFLECTED T- WAVE]Electronically Signed On 01-17-2022 13:02:30 CDT by [facility] Hospitalrobert HomeJabMichael [place] [address]NeizzxPRW9976-23-78 21:23:2512 LEAD EKG FOR [facility] Test Date: 8441-41-55Mzq Name: DORA JOSEPH Department: 5520Patient ID: [id number] Room: 3H60Qraosf: M Network Analyst: : 1970 Requested By: KARIN BASSETT AOrder Number: [id number] Reading MD: Chiara Calles MeasurementsIntervals [place] Rate: 72 P: 90PR: 157 QRS: 87QRSD: 105 T: 90QT: 360 QTc: 384 Interpretive StatementsSINUS RHYTHMPOSSIBLE RIGHT VENTRICULAR CONDUCTION DELAY [RSR (QR) IN V1/V2]EARLY REPOLARIZATION [ST ELEVATION WITH NORMALLY INFLECTED T-W AVE]Electronically Signed On 01-17-2022 13:02:30 CDT by [facility] PittsburghWest World MediaTony [place]ille [address]0022-05-26 21:23:2512 LEAD EKG FOR [facility] Test Date: 4089-81-40Efb Name: DORA JOSEPH Department: 5520Patient ID: [id number] Room: 6U00Bhbtzf: M Network Analyst: : 1970 Requested By: KARIN BASSETT AOrestevan Number: [id number] Reading MD: Chiara Calles MeasurementsIntervals [place] Rate: 72 P: 90PR: 157 QRS: 87QRSD: 105 T: 90QT: 360 QTc: 384 Interpretive StatementsSINUS RHYTHMPOSSIBLE RIGHT VENTRICULAR CONDUCTION DELAY [RSR (QR) IN V1/V2]EARLY REPOLARIZATION [ST ELEVATION WITH NORMALLY INFLECTED T- WAVE]Electronically Signed On 01-17-2022 13:02:30 CDT by [place] 45383022-05-26 21:23:2512 LEAD EKG FOR [facility] Test Date: 0702-34-12Ezs Name: DORA JOSEPH Department: 5520Patient ID: [id number] Room: 7M57Takkdz: M Network Analyst: : 1970 Requested By: JESSICA Ryan Number: [id number] Reading MD: Chiara Calles MeasurementsIntervals [place] Rate: 72 P: 90PR: 157 QRS: 87QRSD: 105 T: 90QT: 360 QTc: 384 Interpretive StatementsSINUS RHYTHMPOSSIBLE RIGHT VENTRICULAR CONDUCTION DELAY [RSR (QR) IN V1/V2]EARLY REPOLARIZATION [ST ELEVATION WITH NORMALLY INFLECTEDT- WAVE]Electronically Signed On 01-17-2022 13:02:30 CDT by [place] 033232-05-26 21:23:2512 LEAD EKG FOR [facility] Test Date: 3831-85-58Iyn Name: DORA JOSEPH Department: 5520Patient ID: [id number] Room: 2J53Qhayhh: M Network Analyst: : 1970 Requested By: KARIN Ryan Number: [id number] Reading MD: Chiara Calles MeasurementsIntervals [place] Rate: 72 P: 90PR:157 QRS: 87QRSD: 105 T: 90QT: 360 QTc: 384 Interpretive StatementsSINUS RHYTHMPOSSIBLE RIGHT VENTRICULAR CONDUCTION DELAY [RSR (QR) IN V1/V2]EARLY REPOLARIZATION [ST ELEVATION WITH NORMALLY INFLECTED T- WAVE]Electronically Signed On 01-17-2022 13:02:30 CDT by [facility] HomeJabBidwell PzotlxLRT1610-94-02 21:23:2512 LEAD EKG FOR [facility] Test Date: 0096-23-13Tvb Name: DORA [place] Department: 5520Patient ID: [id number] Room: 4M90Clslud: M Network Analyst: : 1970 Requested By: KARIN BASSETT AOrder Number: [id number] Reading MD: Chiara Calles MeasurementsIntervals [place] Rate: 72 P: 90PR: 157 QRS: 87QRSD: 105 T: 90QT: 360 QTc: 384 Interpretive StatementsSINUS RHYTHMPOSSIBLE RIGHT VENTRICULAR CONDUCTION DELAY [RSR (QR) IN V1/V2]EARLY REPOLARIZATION [ST ELEVATION WITH NORMALLY INFLECTED T-W AVE]Electronically Signed On 01-17-2022 13:02:30 CDT by [facility] HospitalTrendy MondaysChi [facility] HospitalContinuentImkmsqHMK0855-54-06 21:23:2512 LEAD EKG FOR [facility] Test Date: 7241-13-97Xok Name: DORA [place] Department: 5520Patient ID: [id number] Room: 2C00Knufkw: M Network Analyst: : 1970 Requested By: KARIN BASSETT AOrder Number: [id number] Reading MD: Chiara Calles MeasurementsIntervals [place] Rate: 72 P: 90PR:157 QRS: 87QRSD: 105 T: 90QT: 360 QTc: 384 Interpretive StatementsSINUS RHYTHMPOSSIBLE RIGHT VENTRICULAR CONDUCTION DELAY [RSR (QR) IN V1/V2]EARLY REPOLARIZATION [ST ELEVATION WITH NORMALLY INFLECTED T- WAVE]Electronically Signed On 01-17-2022 13:02:30 CDT by [facility] HospitalTrendy MondaysPeaceHealthGeixejHVT7255-00-54 21:23:2512 LEAD EKG FOR [facility] Test Date: 5370-58-77Maj Name: DORA JOSEPH Department: 5520Patient ID: [id number] Room: 1P59Ilwtsa: M Network Analyst: : 1970 Requested By: JESSCIA AOrder Number: [id number] Reading MD: Chiara Calles MeasurementsIntervals [place] Rate: 72 P: 90PR: 157 QRS: 87QRSD: 105 T: 90QT: 360 QTc: 384 Interpretive StatementsSINUS RHYTHMPOSSIBLE RIGHT VENTRICULAR CONDUCTION DELAY [RSR (QR) IN V1/V2]EARLY REPOLARIZATION [ST ELEVATION WITH NORMALLY INFLECTEDT- WAVE]Electronically Signed On 01-17-2022 13:02:30 CDT by [facility] Hospitalrobert AmbronitebakariTestifMichael [place] [address]IuvuyeVTB8835-11-49 21:23:2512 LEAD EKG FOR [facility] Test Date: 3167-50-30Fne Name: DORA JOSEPH Department: 5520Patient ID: [id number] Room: 3U99Rqeubm: M Network Analyst: : 1970 Requested By: KARIN BASSETT AOrder Number: [id number] Reading MD: Chiara Calles MeasurementsIntervals [place] Rate: 72 P: 90PR:157 QRS: 87QRSD: 105 T: 90QT: 360 QTc: 384 Interpretive StatementsSINUS RHYTHMPOSSIBLE RIGHT VENTRICULAR CONDUCTION DELAY [RSR (QR) IN V1/V2]EARLY REPOLARIZATION [ST ELEVATION WITH NORMALLY INFLECTED T- WAVE]Electronically Signed On 01-17-2022 13:02:30 CDT by [facility] CenterSARS-CoV-2 ORF1ab Resp Ql OLENA+hselu4517-32-34 19:57:49 Test Item Value Reference Range Interpretation Comments Hospitalized? (test No code = 00342-2) ICU? (test code = No 07461-5) Symptomatic as No defined by CDC? (test code = 34038-2) Employed in No Healthcare? (test code = 21598-3) Resident in a No congregate care setting (including nursing homes, residential care for people with intellectual and developmental disabilities, psychiatric treatment facilities, group homes, board and care homes, homeless nursing home, foster care or other): (test code = 76966-1) SARS-CoV-2 ORF1ab NOT DETECTED Not Detected INTERPRETA TION: No Resp Ql OLENA+probe detectable levels of (test code = SARS-CoV-2 41433-3) Coronavirus (COVID-19) were present in this patient's [...] SARS-CoV-2 mole cular diagnostic assa y utilizes Clinic Licensed Practical Nurse Mediated Amplification ( TMA) technology to r apidly detect the SARS -CoV-2 (COVID-19) viru s from respiratory adriana ples. In accordance with\\XC2A0\\the FDA's guidance docume nt "Policy for Diagnostic Test s for Coronavirus Disease-2019 du [facility]", ginger s test was developed, and its performance characteristics were verified by the [facility] molecular diagn ostics laboratory and is authorized for clinical diagno stic use. \\XC2A0\\Ginger s laboratory is certified under the Clinical Labora tory Improvement Amendments (CLI A) as qualified to pe rform high complexity clinical labora tory testing. [facility] CREATININE POC docked [id number] 13:57:55 Test Item Value Reference Range Interpretation Comments Creatinine POC (test 2.4 mg/dL 0.6-1.3 H [facility] an Notified code = 36859529) eGFR If non- Am 30 See_Comment L [Aut omated message] (test code = 66438659) The s ystem which generated this result transmit dian reference range : >=90 mL/min/1.7 3 m2. The reference r meredith was not used to interpret this result as normal/abnormal . eGFR If Am (test 35 See_Comment L [A utomated message] code = 40378622) The system which generated this result transmit dain reference range : >=90 mL/min/1.7 3 m2. The reference r meredith was not used to interpret this result as normal/abnormal . Lab Interpretation (test Abnormal code = 12332-1) [facility] CREATININE POC docked [id number] 13:57:55 Test Item Value Reference Range Interpretation Comments Creatinine POC (test 2.4 mg/dL 0.6-1.3 H Physici an Notified code = 09574374) eGFR If non- Am 30 See_Comment L [Aut omated message] (test code = 71631774) The s ystem which generated this result transmit dain reference range : >=90 mL/min/1.7 3 m2. The reference r meredith was not used to interpret this result as normal/abnormal . eGFR If Am (test 35 See_Comment L [A utomated message] code = 78120520) The system which generated this result transmit dain reference range : >=90 mL/min/1.7 3 m2. The reference r meredith was not used to interpret this result as normal/abnormal . Lab Interpretation (test Abnormal code = 39589-4) [facility] CREATININE POC docked [id number] 13:57:55 Test Item Value Reference Range Interpretation Comments Creatinine POC (test 2.4 mg/dL 0.6-1.3 H Physici an Notified code = 55368738) eGFR If non- Am 30 See_Comment L [Aut omated message] (test code = 83499162) The s ystem which generated this result transmit dain reference range : >=90 mL/min/1.7 3 m2. The reference r meredith was not used to interpret this result as normal/abnormal . eGFR If Am (test 35 See_Comment L [A utomated message] code = 04741346) The system which generated this result transmit dain reference range : >=90 mL/min/1.7 3 m2. The reference r meredith was not used to interpret this result as normal/abnormal . Lab Interpretation (test Abnormal code = 19599-2) [facility] [id number] 13:57:55 Test Item Value Reference Range Interpretation Comments Creatinine POC (test 2.4 mg/dL 0.6-1.3 H Physici an Notified code = 00095240) eGFR If non- Am 30 See_Comment L [Aut omated message] (test code = 77094177) The s ystem which generated this result transmit dain reference range : >=90 mL/min/1.7 3 m2. The reference r meredith was not used to interpret this result as normal/abnormal . eGFR If Am (test 35 See_Comment L [A utomated message] code = 52766249) The system which generated this result transmit dain reference range : >=90 mL/min/1.7 3 m2. The reference r meredith was not used to interpret this result as normal/abnormal . Lab Interpretation (test Abnormal code = 96111-4) [facility] CREATININE POC docked [id number] 13:57:55 Test Item Value Reference Range Interpretation Comments Creatinine POC (test 2.4 mg/dL 0.6-1.3 H Physici an Notified code = 60747428) eGFR If non- Am 30 See_Comment L [Aut omated message] (test code = 30561212) The s ystem which generated this result transmit dain reference range : >=90 mL/min/1.7 3 m2. The reference r meredith was not used to interpret this result as normal/abnormal . eGFR If Am (test 35 See_Comment L [A utomated message] code = 15018673) The system which generated this result transmit dain reference range : >=90 mL/min/1.7 3 m2. The reference r meredith was not used to interpret this result as normal/abnormal . Lab Interpretation (test Abnormal code = 97460-4) [facility] CREATININE POC docked [id number] 13:57:55 Test Item Value Reference Range Interpretation Comments Creatinine POC (test 2.4 mg/dL 0.6-1.3 H Physici an Notified code = 80383732) eGFR If non- Am 30 See_Comment L [Aut omated message] (test code = 67204257) The s ystem which generated this result transmit dain reference range : >=90 mL/min/1.7 3 m2. The reference r meredith was not used to interpret this result as normal/abnormal . eGFR If Am (test 35 See_Comment L [A utomated message] code = 07055418) The system which generated this result transmit dain reference range : >=90 mL/min/1.7 3 m2. The reference r meredith was not used to interpret this result as normal/abnormal . Lab Interpretation (test Abnormal code = 46808-5) [facility] CREATININE POC docked [id number] 13:57:55 Test Item Value Reference Range Interpretation Comments Creatinine POC (test 2.4 mg/dL 0.6-1.3 H Physici an Notified code = 33145059) eGFR If non- Am 30 See_Comment L [Aut omated message] (test code = 14698744) The s ystem which generated this result transmit dain reference range : >=90 mL/min/1.7 3 m2. The reference r meredith was not used to interpret this result as normal/abnormal . eGFR If Am (test 35 See_Comment L [A utomated message] code = 45607274) The system which generated this result transmit dain reference range : >=90 mL/min/1.7 3 m2. The reference r meredith was not used to interpret this result as normal/abnormal . Lab Interpretation (test Abnormal code = 45262-5) [facility] CREATININE POC docked [id number] 13:57:55 Test Item Value Reference Range Interpretation Comments Creatinine POC (test 2.4 mg/dL 0.6-1.3 H Physici an Notified code = 64411402) eGFR If non- Am 30 See_Comment L [Aut omated message] (test code = 94989186) The s ystem which generated this result transmit dain reference range : >=90 mL/min/1.7 3 m2. The reference r meredith was not used to interpret this result as normal/abnormal . eGFR If Am (test 35 See_Comment L [A utomated message] code = 54722034) The system which generated this result transmit dain reference range : >=90 mL/min/1.7 3 m2. The reference r meredith was not used to interpret this result as normal/abnormal . Lab Interpretation (test Abnormal code = 80604-6) [facility] CREATININE POC docked [id number] 13:57:55 Test Item Value Reference Range Interpretation Comments Creatinine POC (test 2.4 mg/dL 0.6-1.3 H Physici an Notified code = 39897346) eGFR If non- Am 30 See_Comment L [Aut omated message] (test code = 90400281) The s ystem which generated this result transmit dain reference range : >=90 mL/min/1.7 3 m2. The reference r meredith was not used to interpret this result as normal/abnormal . eGFR If Am (test 35 See_Comment L [A utomated message] code = 73820276) The system which generated this result transmit dain reference range : >=90 mL/min/1.7 3 m2. The reference r mereidth was not used to interpret this result as normal/abnormal . Lab Interpretation (test Abnormal code = 89593-8) [facility] CREATININE POC docked [id number] 13:57:55 Test Item Value Reference Range Interpretation Comments Creatinine POC (test 2.4 mg/dL 0.6-1.3 H Physici an Notified code = 04037422) eGFR If non- Am 30 See_Comment L [Aut omated message] (test code = 93195857) The s ystem which generated this result transmit dain reference range : >=90 mL/min/1.7 3 m2. The reference r meredith was not used to interpret this result as normal/abnormal . eGFR If Am (test 35 See_Comment L [A utomated message] code = 07366863) The system which generated this result transmit dain reference range : >=90 mL/min/1.7 3 m2. The reference r meredith was not used to interpret this result as normal/abnormal . Lab Interpretation (test Abnormal code = 69016-9) [facility] CREATININE POC docked [id number] 13:57:55 Test Item Value Reference Range Interpretation Comments Creatinine POC (test 2.4 mg/dL 0.6-1.3 H Physici an Notified code = 30701450) eGFR If non- Am 30 See_Comment L [Aut omated message] (test code = 91303644) The s ystem which generated this result transmit dain reference range : >=90 mL/min/1.7 3 m2. The reference r meredith was not used to interpret this result as normal/abnormal . eGFR If Am (test 35 See_Comment L [A utomated message] code = 37703119) The system which generated this result transmit dain reference range : >=90 mL/min/1.7 3 m2. The reference r meredith was not used to interpret this result as normal/abnormal . Lab Interpretation (test Abnormal code = 26803-6) [facility] CREATININE POC docked [id number] 13:57:55 Test Item Value Reference Range Interpretation Comments Creatinine POC (test 2.4 mg/dL 0.6-1.3 H Physici an Notified code = 20727902) eGFR If non- Am 30 See_Comment L [Aut omated message] (test code = 13021077) The s ystem which generated this result transmit dain reference range : >=90 mL/min/1.7 3 m2. The reference r meredith was not used to interpret this result as normal/abnormal . eGFR If Am (test 35 See_Comment L [A utomated message] code = 89604685) The system which generated this result transmit dain reference range : >=90 mL/min/1.7 3 m2. The reference r meredith was not used to interpret this result as normal/abnormal . Lab Interpretation (test Abnormal code = 53168-7) [facility] CREATININE POC docked [id number] 13:57:55 Test Item Value Reference Range Interpretation Comments Creatinine POC (test 2.4 mg/dL 0.6-1.3 H Physici an Notified code = 98480978) eGFR If non- Am 30 See_Comment L [Aut omated message] (test code = 34890546) The s ystem which generated this result transmit dain reference range : >=90 mL/min/1.7 3 m2. The reference r meredith was not used to interpret this result as normal/abnormal . eGFR If Am (test 35 See_Comment L [A utomated message] code = 46202390) The system which generated this result transmit dain reference range : >=90 mL/min/1.7 3 m2. The reference r meredith was not used to interpret this result as normal/abnormal . Lab Interpretation (test Abnormal code = 72057-3) [facility] CREATININE POC docked [id number] 13:57:55 Test Item Value Reference Range Interpretation Comments Creatinine POC (test 2.4 mg/dL 0.6-1.3 H Physici an Notified code = 10704919) eGFR If non- Am 30 See_Comment L [Aut omated message] (test code = 33568077) The s ystem which generated this result transmit dain reference range : >=90 mL/min/1.7 3 m2. The reference r meredith was not used to interpret this result as normal/abnormal . eGFR If Am (test 35 See_Comment L [A utomated message] code = 37382315) The system which generated this result transmit dain reference range : >=90 mL/min/1.7 3 m2. The reference r meredith was not used to interpret this result as normal/abnormal . Lab Interpretation (test Abnormal code = 96548-7) [facility] BMP POC docked [id number] 13:48:46 Test Item Value Reference Range Interpretation Comments Sodium POC (test code = 126 mmol/L 136-145 L 72749673) Potassium POC (test code 4.4 mmol/L 3.5-5.1 = 11230773) Chloride POC (test code 100 mmol/L 98-107 = 24308113) TCO2 POC (test code = 17 mmol/L 21-32 L Physic aylin Notified 05652055) Urea Nitrogen POC (test 36 mg/dL 7-18 H code = 55835082) Glucose POC (test code = 114 mg/dL 74-106 H 50777111) Hemoglobin POC (test 11.9 g/dL 12-16 L code = 36638720) Hematocrit POC (test 35.0 % 37.0-47.0 L code = 96461398) Lab Interpretation (test Abnormal code = 97708-9) [facility] BMP POC docked [id number] 13:48:46 Test Item Value Reference Range Interpretation Comments Sodium POC (test code = 126 mmol/L 136-145 L 58370085) Potassium POC (test code 4.4 mmol/L 3.5-5.1 = 44889644) Chloride POC (test code 100 mmol/L 98-107 = 74755774) TCO2 POC (test code = 17 mmol/L 21-32 L Physic aylin Notified 49326710) Urea Nitrogen POC (test 36 mg/dL 7-18 H code = 52607625) Glucose POC (test code = 114 mg/dL 74-106 H 98635692) Hemoglobin POC (test 11.9 g/dL 12-16 L code = 16661010) Hematocrit POC (test 35.0 % 37.0-47.0 L code = 32068131) Lab Interpretation (test Abnormal code = 81781-9) [facility] POC docked [id number] 13:48:46 Test Item Value Reference Range Interpretation Comments Sodium POC (test code = 126 mmol/L 136-145 L 34763904) Potassium POC (test code 4.4 mmol/L 3.5-5.1 = 77681513) Chloride POC (test code 100 mmol/L 98-107 = 39318368) TCO2 POC (test code = 17 mmol/L 21-32 L Physic aylin Notified 99850409) Urea Nitrogen POC (test 36 mg/dL 7-18 H code = 96020311) Glucose POC (test code = 114 mg/dL 74-106 H 91453340) Hemoglobin POC (test 11.9 g/dL 12-16 L code = 73134332) Hematocrit POC (test 35.0 % 37.0-47.0 L code = 34302754) Lab Interpretation (test Abnormal code = 93474-3) [facility] POC docked [id number] 13:48:46 Test Item Value Reference Range Interpretation Comments Sodium POC (test code = 126 mmol/L 136-145 L 19297102) Potassium POC (test code 4.4 mmol/L 3.5-5.1 = 09052673) Chloride POC (test code 100 mmol/L 98-107 = 40027832) TCO2 POC (test code = 17 mmol/L 21-32 L Physic aylin Notified 48368839) Urea Nitrogen POC (test 36 mg/dL 7-18 H code = 61402360) Glucose POC (test code = 114 mg/dL 74-106 H 95586442) Hemoglobin POC (test 11.9 g/dL 12-16 L code = 65795903) Hematocrit POC (test 35.0 % 37.0-47.0 L code = 81431363) Lab Interpretation (test Abnormal code = 09751-2) [facility] POC docked [id number] 13:48:46 Test Item Value Reference Range Interpretation Comments Sodium POC (test code = 126 mmol/L 136-145 L 18924831) Potassium POC (test code 4.4 mmol/L 3.5-5.1 = 81997122) Chloride POC (test code 100 mmol/L 98-107 = 91590936) TCO2 POC (test code = 17 mmol/L 21-32 L Physic aylin Notified 77842318) Urea Nitrogen POC (test 36 mg/dL 7-18 H code = 65848322) Glucose POC (test code = 114 mg/dL 74-106 H 41303502) Hemoglobin POC (test 11.9 g/dL 12-16 L code = 52863274) Hematocrit POC (test 35.0 % 37.0-47.0 L code = 76343799) Lab Interpretation (test Abnormal code = 33971-2) [facility] POC docked [id number] 13:48:46 Test Item Value Reference Range Interpretation Comments Sodium POC (test code = 126 mmol/L 136-145 L 04586740) Potassium POC (test code 4.4 mmol/L 3.5-5.1 = 46080627) Chloride POC (test code 100 mmol/L 98-107 = 19763489) TCO2 POC (test code = 17 mmol/L 21-32 L Physic aylin Notified 93857948) Urea Nitrogen POC (test 36 mg/dL 7-18 H code = 33837374) Glucose POC (test code = 114 mg/dL 74-106 H 21580100) Hemoglobin POC (test 11.9 g/dL 12-16 L code = 80873459) Hematocrit POC (test 35.0 % 37.0-47.0 L code = 12345780) Lab Interpretation (test Abnormal code = 63207-8) [facility] POC docked [id number] 13:48:46 Test Item Value Reference Range Interpretation Comments Sodium POC (test code = 126 mmol/L 136-145 L 05614472) Potassium POC (test code 4.4 mmol/L 3.5-5.1 = 71636557) Chloride POC (test code 100 mmol/L 98-107 = 46773407) TCO2 POC (test code = 17 mmol/L 21-32 L Physic aylin Notified 07523698) Urea Nitrogen POC (test 36 mg/dL 7-18 H code = 54347345) Glucose POC (test code = 114 mg/dL 74-106 H 52465081) Hemoglobin POC (test 11.9 g/dL 12-16 L code = 53956951) Hematocrit POC (test 35.0 % 37.0-47.0 L code = 18579712) Lab Interpretation (test Abnormal code = 07066-6) [facility] POC docked [id number] 13:48:46 Test Item Value Reference Range Interpretation Comments Sodium POC (test code = 126 mmol/L 136-145 L 32122509) Potassium POC (test code 4.4 mmol/L 3.5-5.1 = 63331633) Chloride POC (test code 100 mmol/L 98-107 = 42629559) TCO2 POC (test code = 17 mmol/L 21-32 L Physic aylin Notified 35086735) Urea Nitrogen POC (test 36 mg/dL 7-18 H code = 37713381) Glucose POC (test code = 114 mg/dL 74-106 H 77541382) Hemoglobin POC (test 11.9 g/dL 12-16 L code = 52830133) Hematocrit POC (test 35.0 % 37.0-47.0 L code = 05891597) Lab Interpretation (test Abnormal code = 10369-6) [facility] POC docked [id number] 13:48:46 Test Item Value Reference Range Interpretation Comments Sodium POC (test code = 126 mmol/L 136-145 L 77445973) Potassium POC (test code 4.4 mmol/L 3.5-5.1 = 35730272) Chloride POC (test code 100 mmol/L 98-107 = 78148172) TCO2 POC (test code = 17 mmol/L 21-32 L Physic aylin Notified 10713821) Urea Nitrogen POC (test 36 mg/dL 7-18 H code = 28848655) Glucose POC (test code = 114 mg/dL 74-106 H 17874899) Hemoglobin POC (test 11.9 g/dL 12-16 L code = 33396872) Hematocrit POC (test 35.0 % 37.0-47.0 L code = 72748621) Lab Interpretation (test Abnormal code = 27309-8) [facility] POC docked [id number] 13:48:46 Test Item Value Reference Range Interpretation Comments Sodium POC (test code = 126 mmol/L 136-145 L 82248274) Potassium POC (test code 4.4 mmol/L 3.5-5.1 = 21538607) Chloride POC (test code 100 mmol/L 98-107 = 83844126) TCO2 POC (test code = 17 mmol/L 21-32 L Physic aylin Notified 13026915) Urea Nitrogen POC (test 36 mg/dL 7-18 H code = 35340658) Glucose POC (test code = 114 mg/dL 74-106 H 44205897) Hemoglobin POC (test 11.9 g/dL 12-16 L code = 35378313) Hematocrit POC (test 35.0 % 37.0-47.0 L code = 65634641) Lab Interpretation (test Abnormal code = 40997-7) [facility] POC docked [id number] 13:48:46 Test Item Value Reference Range Interpretation Comments Sodium POC (test code = 126 mmol/L 136-145 L 58453999) Potassium POC (test code 4.4 mmol/L 3.5-5.1 = 15822925) Chloride POC (test code 100 mmol/L 98-107 = 31150860) TCO2 POC (test code = 17 mmol/L 21-32 L Physic aylin Notified 89007939) Urea Nitrogen POC (test 36 mg/dL 7-18 H code = 06873434) Glucose POC (test code = 114 mg/dL 74-106 H 71449845) Hemoglobin POC (test 11.9 g/dL 12-16 L code = 11540107) Hematocrit POC (test 35.0 % 37.0-47.0 L code = 04330580) Lab Interpretation (test Abnormal code = 73012-2) [facility] POC docked [id number] 13:48:46 Test Item Value Reference Range Interpretation Comments Sodium POC (test code = 126 mmol/L 136-145 L 11978039) Potassium POC (test code 4.4 mmol/L 3.5-5.1 = 31596537) Chloride POC (test code 100 mmol/L 98-107 = 00745543) TCO2 POC (test code = 17 mmol/L 21-32 L Physic aylin Notified 25048657) Urea Nitrogen POC (test 36 mg/dL 7-18 H code = 65197673) Glucose POC (test code = 114 mg/dL 74-106 H 86492575) Hemoglobin POC (test 11.9 g/dL 12-16 L code = 26088717) Hematocrit POC (test 35.0 % 37.0-47.0 L code = 13454550) Lab Interpretation (test Abnormal code = 31325-2) [facility] POC docked [id number] 13:48:46 Test Item Value Reference Range Interpretation Comments Sodium POC (test code = 126 mmol/L 136-145 L 59221316) Potassium POC (test code 4.4 mmol/L 3.5-5.1 = 14462777) Chloride POC (test code 100 mmol/L 98-107 = 83143130) TCO2 POC (test code = 17 mmol/L 21-32 L Physic aylin Notified 01836723) Urea Nitrogen POC (test 36 mg/dL 7-18 H code = 11261418) Glucose POC (test code = 114 mg/dL 74-106 H 96851625) Hemoglobin POC (test 11.9 g/dL 12-16 L code = 66149045) Hematocrit POC (test 35.0 % 37.0-47.0 L code = 22159922) Lab Interpretation (test Abnormal code = 81866-3) [facility] POC docked [id number] 13:48:46 Test Item Value Reference Range Interpretation Comments Sodium POC (test code = 126 mmol/L 136-145 L 32271780) Potassium POC (test code 4.4 mmol/L 3.5-5.1 = 36126303) Chloride POC (test code 100 mmol/L 98-107 = 94817010) TCO2 POC (test code = 17 mmol/L 21-32 L Physic aylin Notified 84365334) Urea Nitrogen POC (test 36 mg/dL 7-18 H code = 53834209) Glucose POC (test code = 114 mg/dL 74-106 H 91207138) Hemoglobin POC (test 11.9 g/dL 12-16 L code = 43411591) Hematocrit POC (test 35.0 % 37.0-47.0 L code = 41035878) Lab Interpretation (test Abnormal code = 75247-5) [facility] OLENA+[id number] 20:25:16 Test Item Value Reference Range Interpretation Comments Hospitalized? (test No code = 92157-7) ICU? (test code = No 82318-1) Symptomatic as No defined by CDC? (test code = 17372-0) Employed in No Healthcare? (test code = 14613-2) Resident in a No congregate care setting (including nursing homes, residential care for people with intellectual and developmental disabilities, psychiatric treatment facilities, group homes, board and care homes, homeless nursing home, foster care or other): (test code = 55021-7) SARS-CoV-2 ORF1ab NOT DETECTED Not Detected INTERPRETA TION: No Resp Ql OLENA+probe detectable levels of (test code = SARS-CoV-2 18512-7) Coronavirus (COVID-19) were present in this patient's [...] SARS-CoV-2 mole cular diagnostic assa y utilizes [facility] Licensed Practical Nurse Mediated Amplification ( TMA) technology to r apidly detect the SARS -CoV-2 (COVID-19) viru s from respiratory adriana ples. In accordance with\\XC2A0\\the FDA's guidance docume nt "Policy for Diagnostic Test s for Coronavirus Disease-2019 du ring the Public Heal th Emergency", ginger s test was developed, and its performance characteristics were verified by the [facility] molecular diagn ostics laboratory and is authorized for clinical diagno stic use. \\XC2A0\\Ginger s laboratory is certified under the Clinical Labora tory Improvement Amendments (CLI A) as qualified to pe rform high complexity clinical labora tory testing. [facility] POC docked [id number] 11:16:15 Test Item Value Reference Range Interpretation Comments pH, Pankaj POC (test code 7.32 7.33-7.43 L = 87238691) pCO2,Pankaj POC (test code 31.0 See_Comment L [Au tomated = 41399838) message] The sy stem which generated this result transmitted reference range : 38 - 50 mmHg. The reference range was not used to interpret this result as normal/abnormal . PO2, Venous POC (BKR) 44 See_Comment L [Auto mated (test code = 51863060) messa ge] The system which generated this result transmitted reference range : 50 - 75 mm Hg. The reference range was not used to interpret this result as normal/abnormal . Ionized Calcium POC 1.24 mmol/L 1.15-1.29 (test code = 19254350) HCO3, Pankaj POC (test 16 mmol/L 22-26 L code = 40698524) TCO2 POC (test code = 17 mmol/L 21-32 L 97758726) Base Deficit, Pankaj POC -9 (test code = 73586570) Sample Type (test code IVEN Physi erik Notified = 12011000) % Sat, Pankaj POC (test 77 % code = 68506966) Lab Interpretation Abnormal (test code = 60468-9) [facility] VBG POC docked [id number] 11:16:15 Test Item Value Reference Range Interpretation Comments pH, Pankaj POC (test code 7.32 7.33-7.43 L = 57348773) pCO2,Pankaj POC (test code 31.0 See_Comment L [Au tomated = 85088760) message] The sy stem which generated this result transmitted reference range : 38 - 50 mmHg. The reference range was not used to interpret this result as normal/abnormal . PO2, Venous POC (BKR) 44 See_Comment L [Auto mated (test code = 92551881) [employer]] The system which generated this result transmitted reference range : 50 - 75 mm Hg. The reference range was not used to interpret this result as normal/abnormal . Ionized Calcium POC 1.24 mmol/L 1.15-1.29 (test code = 89573959) HCO3, Pankaj POC (test 16 mmol/L 22-26 L code = 77091203) TCO2 POC (test code = 17 mmol/L 21-32 L 40006361) Base Deficit, Pankaj POC -9 (test code = 59834605) Sample Type (test code IVEN Physi erik Notified = 66810965) % Sat, Pankaj POC (test 77 % code = 17171265) Lab Interpretation Abnormal (test code = 31822-5) [facility] VBG POC docked [id number] 11:16:15 Test Item Value Reference Range Interpretation Comments pH, Pankaj POC (test code 7.32 7.33-7.43 L = 38575230) pCO2,Pankaj POC (test code 31.0 See_Comment L [Au tomated = 91096797) message] The sy stem which generated this result transmitted reference range : 38 - 50 mmHg. The reference range was not used to interpret this result as normal/abnormal . PO2, Venous POC (BKR) 44 See_Comment L [Auto mated (test code = 38275962) [employer]] The system which generated this result transmitted reference range : 50 - 75 mm Hg. The reference range was not used to interpret this result as normal/abnormal . Ionized Calcium POC 1.24 mmol/L 1.15-1.29 (test code = 69130157) HCO3, Pankaj POC (test 16 mmol/L 22-26 L code = 65474843) TCO2 POC (test code = 17 mmol/L 21-32 L 54620141) Base Deficit, Pankaj POC -9 (test code = 86318309) Sample Type (test code IVEN Physi erik Notified = 50738318) % Sat, Pankaj POC (test 77 % code = 80360648) Lab Interpretation Abnormal (test code = 44586-1) [facility] POC docked [id number] 11:16:15 Test Item Value Reference Range Interpretation Comments pH, Pankaj POC (test code 7.32 7.33-7.43 L = 99109966) pCO2,Pankaj POC (test code 31.0 See_Comment L [Au tomated = 44569523) message] The sy stem which generated this result transmitted reference range : 38 - 50 mmHg. The reference range was not used to interpret this result as normal/abnormal . PO2, Venous POC (BKR) 44 See_Comment L [Auto mated (test code = 26019718) messa ge] The system which generated this result transmitted reference range : 50 - 75 mm Hg. The reference range was not used to interpret this result as normal/abnormal . Ionized Calcium POC 1.24 mmol/L 1.15-1.29 (test code = 36942132) HCO3, Pankaj POC (test 16 mmol/L 22-26 L code = 42703715) TCO2 POC (test code = 17 mmol/L 21-32 L 64380080) Base Deficit, Pankaj POC -9 (test code = 19767740) Sample Type (test code IVFLORENCE Physi erik Notified = 35457089) % Sat, Pankaj POC (test 77 % code = 58832866) Lab Interpretation Abnormal (test code = 91017-3) [facility] POC docked [id number] 11:16:15 Test Item Value Reference Range Interpretation Comments pH, Pankaj POC (test code 7.32 7.33-7.43 L = 17912680) pCO2,Pankaj POC (test code 31.0 See_Comment L [Au tomated = 38865101) message] The sy stem which generated this result transmitted reference range : 38 - 50 mmHg. The reference range was not used to interpret this result as normal/abnormal . PO2, Venous POC (BKR) 44 See_Comment L [Auto mated (test code = 83639825) messa ge] The system which generated this result transmitted reference range : 50 - 75 mm Hg. The reference range was not used to interpret this result as normal/abnormal . Ionized Calcium POC 1.24 mmol/L 1.15-1.29 (test code = 53444053) HCO3, Pankaj POC (test 16 mmol/L 22-26 L code = 74269613) TCO2 POC (test code = 17 mmol/L 21-32 L 04620230) Base Deficit, Pankaj POC -9 (test code = 64844542) Sample Type (test code STEPAN valencia Notified = 93125962) % Sat, Pankaj POC (test 77 % code = 34849730) Lab Interpretation Abnormal (test code = 14833-2) [facility] POC docked [id number] 11:16:15 Test Item Value Reference Range Interpretation Comments pH, Pankaj POC (test code 7.32 7.33-7.43 L = 10765376) pCO2,Pankaj POC (test code 31.0 See_Comment L [Au tomated = 56110774) message] The sy stem which generated this result transmitted reference range : 38 - 50 mmHg. The reference range was not used to interpret this result as normal/abnormal . PO2, Venous POC (BKR) 44 See_Comment L [Auto mated (test code = 19526532) messa ge] The system which generated this result transmitted reference range : 50 - 75 mm Hg. The reference range was not used to interpret this result as normal/abnormal . Ionized Calcium POC 1.24 mmol/L 1.15-1.29 (test code = 37079888) HCO3, Pankaj POC (test 16 mmol/L 22-26 L code = 67262864) TCO2 POC (test code = 17 mmol/L 21-32 L 50801271) Base Deficit, Pankaj POC -9 (test code = 47989295) Sample Type (test code STEPAN valencia Notified = 06467431) % Sat, Pankaj POC (test 77 % code = 57654077) Lab Interpretation Abnormal (test code = 14962-7) [facility] POC docked [id number] 11:16:15 Test Item Value Reference Range Interpretation Comments pH, Pankaj POC (test code 7.32 7.33-7.43 L = 24947373) pCO2,Pankaj POC (test code 31.0 See_Comment L [Au tomated = 60289922) message] The sy stem which generated this result transmitted reference range : 38 - 50 mmHg. The reference range was not used to interpret this result as normal/abnormal . PO2, Venous POC (BKR) 44 See_Comment L [Auto mated (test code = 00344999) messa ge] The system which generated this result transmitted reference range : 50 - 75 mm Hg. The reference range was not used to interpret this result as normal/abnormal . Ionized Calcium POC 1.24 mmol/L 1.15-1.29 (test code = 74142252) HCO3, Pankaj POC (test 16 mmol/L 22-26 L code = 67674313) TCO2 POC (test code = 17 mmol/L 21-32 L 47282274) Base Deficit, Pankaj POC -9 (test code = 46551717) Sample Type (test code IVEN Physi erik Notified = 59971764) % Sat, Pankaj POC (test 77 % code = 83370160) Lab Interpretation Abnormal (test code = 70355-8) [facility] POC docked [id number] 11:16:15 Test Item Value Reference Range Interpretation Comments pH, Pankaj POC (test code 7.32 7.33-7.43 L = 76971429) pCO2,Pankaj POC (test code 31.0 See_Comment L [Au tomated = 46259654) message] The sy stem which generated this result transmitted reference range : 38 - 50 mmHg. The reference range was not used to interpret this result as normal/abnormal . PO2, Venous POC (BKR) 44 See_Comment L [Auto mated (test code = 97493484) messa ge] The system which generated this result transmitted reference range : 50 - 75 mm Hg. The reference range was not used to interpret this result as normal/abnormal . Ionized Calcium POC 1.24 mmol/L 1.15-1.29 (test code = 87902858) HCO3, Pankaj POC (test 16 mmol/L 22-26 L code = 54563428) TCO2 POC (test code = 17 mmol/L 21-32 L 92057335) Base Deficit, Pankaj POC -9 (test code = 14289687) Sample Type (test code IVFLORENCE Physi erik Notified = 06148363) % Sat, Pankaj POC (test 77 % code = 96885555) Lab Interpretation Abnormal (test code = 48979-3) [facility] POC docked [id number] 11:16:15 Test Item Value Reference Range Interpretation Comments pH, Pankaj POC (test code 7.32 7.33-7.43 L = 62143909) pCO2,Pankaj POC (test code 31.0 See_Comment L [Au tomated = 43360420) message] The sy stem which generated this result transmitted reference range : 38 - 50 mmHg. The reference range was not used to interpret this result as normal/abnormal . PO2, Venous POC (BKR) 44 See_Comment L [Auto mated (test code = 64803116) PingTanka ge] The system which generated this result transmitted reference range : 50 - 75 mm Hg. The reference range was not used to interpret this result as normal/abnormal . Ionized Calcium POC 1.24 mmol/L 1.15-1.29 (test code = 57715708) HCO3, Pankaj POC (test 16 mmol/L 22-26 L code = 04378909) TCO2 POC (test code = 17 mmol/L 21-32 L 36371176) Base Deficit, Pankaj POC -9 (test code = 32563247) Sample Type (test code IVEN Physi erik Notified = 06542391) % Sat, Pankaj POC (test 77 % code = 28962847) Lab Interpretation Abnormal (test code = 63792-4) [facility] POC docked [id number] 11:16:15 Test Item Value Reference Range Interpretation Comments pH, Pankaj POC (test code 7.32 7.33-7.43 L = 91547435) pCO2,Pankaj POC (test code 31.0 See_Comment L [Au tomated = 09247268) message] The sy stem which generated this result transmitted reference range : 38 - 50 mmHg. The reference range was not used to interpret this result as normal/abnormal . PO2, Venous POC (BKR) 44 See_Comment L [Auto mated (test code = 85185132) PingTanka [employer]] The system which generated this result transmitted reference range : 50 - 75 mm Hg. The reference range was not used to interpret this result as normal/abnormal . Ionized Calcium POC 1.24 mmol/L 1.15-1.29 (test code = 32698784) HCO3, Pankaj POC (test 16 mmol/L 22-26 L code = 20384414) TCO2 POC (test code = 17 mmol/L 21-32 L 83730055) Base Deficit, Pankaj POC -9 (test code = 79507577) Sample Type (test code IVEN Physi erik Notified = 09205567) % Sat, Pankaj POC (test 77 % code = 28393978) Lab Interpretation Abnormal (test code = 59363-0) [facility] POC docked [id number] 11:16:15 Test Item Value Reference Range Interpretation Comments pH, Pankaj POC (test code 7.32 7.33-7.43 L = 67592713) pCO2,Pankaj POC (test code 31.0 See_Comment L [Au tomated = 94764010) message] The sy stem which generated this result transmitted reference range : 38 - 50 mmHg. The reference range was not used to interpret this result as normal/abnormal . PO2, Venous POC (BKR) 44 See_Comment L [Auto mated (test code = 23091233) PingTanka ge] The system which generated this result transmitted reference range : 50 - 75 mm Hg. The reference range was not used to interpret this result as normal/abnormal . Ionized Calcium POC 1.24 mmol/L 1.15-1.29 (test code = 95035941) HCO3, Pankaj POC (test 16 mmol/L 22-26 L code = 09686153) TCO2 POC (test code = 17 mmol/L 21-32 L 26918078) Base Deficit, Pankaj POC -9 (test code = 64074636) Sample Type (test code IVFLORENCE Physi erik Notified = 22071527) % Sat, Pankaj POC (test 77 % code = 94431250) Lab Interpretation Abnormal (test code = 61093-1) [facility] VB POC docked [id number] 11:16:15 Test Item Value Reference Range Interpretation Comments pH, Pankaj POC (test code 7.32 7.33-7.43 L = 43096784) pCO2,Pankaj POC (test code 31.0 See_Comment L [Au tomated = 99429590) message] The sy stem which generated this result transmitted reference range : 38 - 50 mmHg. The reference range was not used to interpret this result as normal/abnormal . PO2, Venous POC (BKR) 44 See_Comment L [Auto mated (test code = 66816891) messa ge] The system which generated this result transmitted reference range : 50 - 75 mm Hg. The reference range was not used to interpret this result as normal/abnormal . Ionized Calcium POC 1.24 mmol/L 1.15-1.29 (test code = 47245445) HCO3, Pankaj POC (test 16 mmol/L 22-26 L code = 06889592) TCO2 POC (test code = 17 mmol/L 21-32 L 40037357) Base Deficit, Pankaj POC -9 (test code = 88726497) Sample Type (test code STEPAN valencia Notified = 94819088) % Sat, Pankaj POC (test 77 % code = 44553591) Lab Interpretation Abnormal (test code = 97131-1) [facility] POC docked [id number] 11:16:15 Test Item Value Reference Range Interpretation Comments pH, Pankaj POC (test code 7.32 7.33-7.43 L = 53483473) pCO2,Pankaj POC (test code 31.0 See_Comment L [Au tomated = 32140627) message] The sy stem which generated this result transmitted reference range : 38 - 50 mmHg. The reference range was not used to interpret this result as normal/abnormal . PO2, Venous POC (BKR) 44 See_Comment L [Auto mated (test code = 84943778) PingTanka ge] The system which generated this result transmitted reference range : 50 - 75 mm Hg. The reference range was not used to interpret this result as normal/abnormal . Ionized Calcium POC 1.24 mmol/L 1.15-1.29 (test code = 36172488) HCO3, Pankaj POC (test 16 mmol/L 22-26 L code = 99820450) TCO2 POC (test code = 17 mmol/L 21-32 L 88773963) Base Deficit, Pankaj POC -9 (test code = 19340543) Sample Type (test code STEPAN valencia Notified = 04350749) % Sat, Pankaj POC (test 77 % code = 63859957) Lab Interpretation Abnormal (test code = 00588-4) [facility] POC docked [id number] 11:16:15 Test Item Value Reference Range Interpretation Comments pH, Pankaj POC (test code 7.32 7.33-7.43 L = 01862894) pCO2,Pankaj POC (test code 31.0 See_Comment L [Au tomated = 70048457) message] The sy stem which generated this result transmitted reference range : 38 - 50 mmHg. The reference range was not used to interpret this result as normal/abnormal . PO2, Venous POC (BKR) 44 See_Comment L [Auto mated (test code = 04984836) messa ge] The system which generated this result transmitted reference range : 50 - 75 mm Hg. The reference range was not used to interpret this result as normal/abnormal . Ionized Calcium POC 1.24 mmol/L 1.15-1.29 (test code = 75209162) HCO3, Pankaj POC (test 16 mmol/L 22-26 L code = 13489785) TCO2 POC (test code = 17 mmol/L 21-32 L 61334140) Base Deficit, Pankaj POC -9 (test code = 07402028) Sample Type (test code IVEN Physi erik Notified = 42280855) % Sat, Pankaj POC (test 77 % code = 58166770) Lab Interpretation Abnormal (test code = 01459-1) [facility]12 LEAD [id number] 20:59:5612 LEAD EKG FOR [facility] Test Date: 4510-12-61Viy Name: DORA JOSEPH Department: 5520Patient ID: [id number] Room: Gender: M Network Analyst: [id number]: 1970 Requested By: TANJA Garza Number: [id number] Reading MD: Chiara Calles MeasurementsIntervals [place] Rate: 75 P: 84PR: 153 QRS: 67QRSD: 104 T: 77QT: 344 QTc: 373 Interpretive StatementsSINUS RHYTHMPOSSIBLE RIGHT VENTRICULAR CONDUCTION DELAY [RSR (QR) IN V1/V2]Electronically Signed On 01-09-2022 8:27:19 CDT [place] [address] LEAD [id number] 20:59:5612 LEAD EKG FOR [facility] Test Date: 9209-12-53Aaw Name: DORA JOSEPH Department: 5520Patient ID: [id number] Room: Gender: M Network Analyst: [id number]: 1970 Requested By: TANJA Garza Number: [id number] Reading MD: Chiara Calles MeasurementsIntervals [place] Rate: 75 P: 84PR: 153 QRS: 67QRSD: 104 T: 77QT: 344 QTc: 373 Interpretive StatementsSINUS RHYTHMPOSSIBLE RIGHT VENT RICULAR CONDUCTION DELAY [RSR (QR) IN V1/V2]Electronically Signed On 01-09-2022 8:27:19 CDT by [facility] HospitalHomeJabMichelle [place] [address] LEAD [id number] 20:59:5612 LEAD EKG FOR [facility] Test Date: 4753-74-62Jnv Name: DORA JOSEPH Department: 5520Patient ID: [id number] Room: Gender: M Network Analyst: [id number]: 1970 Requested By: TANJA Garza Number: [id number] Reading MD: Chiara Calles MeasurementsIntervals [place] Rate: 75 P: 84PR: 153 QRS: 67QRSD: 104 T: 77QT: 344 QTc: 373 Interpretive StatementsSINUS RHYTHMPOSSIBLE RIGHT VENTRICULAR CONDUCTION DELAY [RSR (QR) IN V1/V2]Electronically Signed On 01-09-2022 8:27:19 CDT [address] [facility] HospitalBinary Thumb [place] [address] LEAD [id number] 20:59:5612 LEAD EKG FOR [facility] Test Date: 8155-81-38Ohz Name: DORA PAEZRY Department: 5520Patient ID: [id number] Room: Gender: M Network Analyst: [id number]: 1970 Requested By: TANJA Garza Number: [id number] Reading MD: Chiara Calles MeasurementsIntervals [place] Rate: 75 P: 84PR: 153 QRS: 67QRSD: 104 T: 77QT: 344 QTc: 373 Interpretive StatementsSINUS RHYTHMPOSSIBLE RIGHT VENTRICULAR CONDUCTION DELAY [RSR (QR) IN V1/V2]Electronically Signed On 01-09-2022 8:27:19 CDT by [facility] HospitalHomeJabMichelle [place] [address] LEAD [id number] 20:59:5612 LEAD EKG FOR [facility] Test Date: 2634-89-45Jcs Name: DORA PAEZRY Department: 5520Patient ID: [id number] Room: Gender: M Network Analyst: [id number]: 1970 Requested By: TANJA Garza Number: [id number] Reading MD: Chiara Calles MeasurementsIntervals [place] Rate: 75 P: 84PR: 153 QRS: 67QRSD: 104 T: 77QT: 344 QTc: 373 Interpretive StatementsSINUS RHYTHMPOSSIBLE RIGHT VENTRICULAR CONDUCTION DELAY [RSR (QR) IN V1/V2]Electronically Signed On 01-09-2022 8:27:19 CDT by [facility] childrenFieldoo12 LEAD [id number] 20:59:5612 LEAD EKG FOR [facility] Test Date: 4783-81-90Cqt Name: DORA JOSEPH Department: 5520Patient ID: [id number] Room: Gender: M Network Analyst: [id number]: 1970 Requested By: TANJA Garza Number: [id number] Reading MD: Chiara Calles MeasurementsIntervals [place] Rate: 75 P: 84PR: 153 QRS: 67QRSD: 104 T: 77QT: 344 QTc: 373 Interpretive StatementsSINUS RHYTHMPOSSIBLE RIGHT VENT RICULAR CONDUCTION DELAY [RSR (QR) IN V1/V2]Electronically Signed On 01-09-2022 8:27:19 CDT [address] Vincent HospitalBancore A/S12 LEAD [id number] 20:59:5612 LEAD EKG FOR [facility] Test Date: 0458-80-83Mnz Name: DORA PAEZRY Department: 5520Patient ID: [id number] Room: Gender: M Network Analyst: [id number]: 1970 Requested By: TANJA Garza Number: [id number] Reading MD: Chiara Calles MeasurementsIntervals [place] Rate: 75 P: 84PR: 153 QRS: 67QRSD: 104 T: 77QT: 344 QTc: 373 Interpretive StatementsSINUS RHYTHMPOSSIBLE RIGHT VENTRICULAR CONDUCTION DELAY [RSR (QR) IN V1/V2]Electronically Signed On 01-09-2022 8:27:19 CDT by [address]Trendy MondaysChi St[address] Vincent HospitalBancore A/S12 LEAD [id number] 20:59:5612 LEAD EKG FOR [facility] Test Date: 2785-20-30Lqp Name: DORA PAEZRY Department: 5520Patient ID: [id number] Room: Gender: M Network Analyst: [id number]: 1970 Requested By: TANJA Garza Number: [id number] Reading MD: Chiara Calles MeasurementsIntervals [place] Rate: 75 P: 84PR : 153 QRS: 67QRSD: 104 T: 77QT: 344 QTc: 373 Interpretive StatementsSINUS RHYTHMPOSSIBLE RIGHT VENTRICULAR CONDUCTION DELAY [RSR (QR) IN V1/V2]Electronically Signed On 01-09-2022 8:27:19 CDT by Chiara Redding Cqbwij82 LEAD [id number] 20:59:5612 LEAD EKG FOR [facility] Test Date: 1564-39-29Scw Name: DORA JOSEPH Department: 5520Patient ID: [id number] Room: Gender: M Network Analyst: [id number]: 1970 Requested By: TANJA Garza Number: [id number] Reading MD: Chiara Calles MeasurementsIntervals [place] Rate: 75 P: 84PR: 153 QRS: 67QRSD: 104 T: 77QT: 344 QTc: 373 Interpretive StatementsSINUS RHYTHMPOSSIBLE RIGHT VENTRICULAR CONDUCTION DELAY [RSR (QR) IN V1/V2]Electronically Signed On 01-09-2022 8:27:[address] Vincent HospitalBancore A/S12 LEAD [id number] 20:59:5612 LEAD EKG FOR [facility] Test Date: 6195-67-15Fsg Name: DORA JOSEPH Department: 5520Patient ID: [id number] Room: Gender: M Network Analyst: [id number]: 1970 Requested By: TANJA Garza Number: [id number] Reading MD: Chiara Calles MeasurementsIntervals [place] Rate: 75 P: 84PR: 153 QRS: 67QRSD: 104 T: 77QT: 344 QTc: 373 Interpretive StatementsSINUS RHYTHMPOSSIBLE RIGHT VENTRIC ULAR CONDUCTION DELAY [RSR (QR) IN V1/V2]Electronically Signed On 01-09-2022 8:27:19 CDT by Chiara DavisTestifCompaBancore A/S12 LEAD [id number] 20:59:5612 LEAD EKG FOR [facility] Test Date: 5949-59-51Hfq Name: DORA [place] Department: 5520Patient ID: [id number] Room: Gender: M Network Analyst: [id number]: 1970 Requested By: TANJA Garza Number: [id number] Reading MD: Chiara Calles MeasurementsIntervals [place] Rate: 75 P: 84PR: 153 QRS: 67QRSD: 104 T: 77QT: 344 QTc: 373 Interpretive StatementsSINUS RHYTHMPOSSIBLE RIGHT VENTRICULAR CONDUCTION DELAY [RSR (QR) IN V1/V2]Electronically Signed On 01-09-2022 8:27:19 CDT by Chiara Fieldoo12 LEAD [id number] 20:59:5612 LEAD EKG FOR [facility] Test Date: 3410-09-29Pcu Name: DORA PAEZRY Department: 5520Patient ID: [id number] Room: Gender: M Network Analyst: [id number]: 1970 Requested By: TANJA Garza Number: [id number] Reading MD: Chiara Calles MeasurementsIntervals [place] Rate: 75 P: 84PR: 153 QRS: 67QRSD: 104 T: 77QT: 344 QTc: 373 Interpretive StatementsSINUS RHYTHMPOSSIBLE RIGHT VENTRICULAR CONDUCTION DELAY [RSR (QR) IN V1/V2]Electronically Signed On 01-09-2022 8:27:19 CDT by Lat4912 LEAD [id number] 20:59:5612 LEAD EKG FOR [facility] Test Date: 5165-39-36Imd Name: DORA [place] Department: 5520Patient ID: [id number] Room: Gender: M Network Analyst: [id number]: 1970 Requested By: TANJA Garza Number: [id number] Reading MD: Chiara Calles MeasurementsIntervals [place] Rate: 75 P: 84PR: 153 QRS: 67QRSD: 104 T: 77QT: 344 QTc: 373 Interpretive StatementsSINUS RHYTHMPOSSIBLE RIGHT VENTRICULAR CONDUCTION DELAY [RSR (QR) IN V1/V2]Electronically Signed On 01-09-2022 8:27:19 CDT by dINK12 LEAD [id number] 20:59:5612 LEAD EKG FOR [facility] Test Date: 0082-61-26Fdu Name: DORA JOSEPH Department: 5520Patient ID: [id number] Room: Gender: M Network Analyst: [id number]: 1970 Requested By: TANJA Garza Number: [id number] Reading MD: Chiara Calles MeasurementsIntervals [place] Rate: 75 P: 84PR: 153 QRS: 67QRSD: 104 T: 77QT: 344 QTc: 373 Interpretive StatementsSINUS RHYTHMPOSSIBLE RIGHT PANKAJ TRICULAR CONDUCTION DELAY [RSR (QR) IN V1/V2]Electronically Signed On 01-09-2022 8:27:19 CDT by [facility] W/AUTO [id number] 23:52:00 Test Item Value Reference Range Interpretation [...] = MX#) 0.8 k/mm3 0.1-0.8 N LIVER [id number] 20:04:00 Test Item Value Reference Range Interpretation Comments TOTAL PROTEIN (test code 6.7 GM/DL 5.0-8.0 N Per formed by = PROT) certified opera tor [facility] ed Ctr ALBUMIN (test code = [...] 67 UNITS/L 25-125 N LYNDSEY) BASIC METABOLIC [id number] 19:54:00 Test Item Value Reference Range Interpretation [...] POCGLU) 81 MG/DL - CT ABD PELVIS [id number] 00:00:00 [facility] 1970 Sex: M Name: MARIA ISABEL JOSEPH FSED : 1970 Age/S: 51 / M [address] [facility] Unit #: [id number] Loc: [place] [address] Phys: Raffaele Levi MD Acct: [id number] Dis Date: Status: PRE ER PHONE #: Exam Date: 09/23/20211999 FAX #: Reason: RUQ PAIN, VOMITING EXAMS: CPT CODE: [id number] CT ABD PELVIS W/CONT 99856 PROCEDURE INFORMATION: Exam: CT Abdomen And Pelvis [...] : 1970 Age/S: 51 / M [address] [facility] Unit #: [id number] Loc: [place] [address] Phys: Raffaele Levi MD Acct: [id number] Dis Date: Status: PRE ER PHONE #: Exam Date: 09/23/20211999 FAX #: Reason: RUQ PAIN, VOMITING EXAMS: CPT CODE: [id number] CT ABD PELVIS W/CONT 64487 <Continued> abdominal small bowel loops may relate to incomplete luminal distention or enteritis. 2. 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 No obstruction. at 2048 Reported and signed by: Juan Juarez M.D.CC: Raffaele Levi MD Technologist:Stephanie Albrecth, RT(R)(CT) CTDI: DLP: Trnscb Date/Time: 09/23/2021 (2048) t.SDR.SG9 Orig Print D/T: S: 09/23/2021 (2049) PAGE 2 Signed Report COMPREHENSIVE METABOLIC [id number] 11:51:00 Test Item Value Reference Range Interpretation [...] Units/L 50.0-136.0 N code = ALKP) PROTHROMBIN [id number] 11:41:00 Test Item Value Reference Range Interpretation Comments PROTHROMBIN TIME 10.9 SECONDS 9.9-12.8 N PATIENT (test code = PTP) INTERNATIONAL NORMAL 0.9 0.89-1.14 N THE INR IS TO BE USED RATIO (test code = ONLY FOR MONITORING INR) ORAL ANTICOAGULANTTH ERAPY. THE FOLLOWING A RE SUGGESTED RANGE S FROM 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 [facility] BASIC METABOLIC [id number] 05:21:00 Test Item Value Reference Range Interpretation [...] (test code = POCGLU) 92 MG/DL GLUCOSE [id number] 05:19:00 Test Item Value Reference Range Interpretation Comments GLUCOSE BEDSIDE (test 51 MG/DL 70-110 L [facility] med by certified code = GLUBED) 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 [facility] CBC W/AUTO [id number] 14:00:00 Test Item Value Reference Range Interpretation [...] MX#) 0.2 k/mm3 0.1-0.8 N CBC W/AUTO [id number] 00:07:00 Test Item Value Reference Range Interpretation [...] = LY#) 2.4 K/uL 1.0-3.8 N LIVER [id number] 16:14:00 Test Item Value Reference Range Interpretation Comments TOTAL PROTEIN (test code 7.5 GM/DL 5.0-8.0 N Per formed by = PROT) certified opera miguelito at [facility] C[facility] ALBUMIN (test code = 3.9 g/dL [...] 65 UNITS/L 25-125 N LYNDSEY) BASIC METABOLIC [id number] 16:07:00 Test Item Value Reference Range Interpretation [...] POCGLU) 96 MG/DL - XR CHEST 1 [id number] 00:00:00 [facility] : 1970 Sex: MFAX: Steve Urias MD [phone] Starr: ELLYN St: PRE Name: DORA JOSEPH FSED : 1970 Age/S: 51/M [address] [facility] Unit #: [id number] Loc: [place] [address] Phys: Steve Urias MD Acct: [id number] Dis Date: Status: PRE ER PHONE #: Exam Date: 06/27/2021 2207 FAX #: Reason: Abdominal Pain EXAMS: CPT CODE: [id number] XR CHEST 1 V 79455 PROCEDURE INFORMATION: Exam: XR Chest Exam date [...] By: [email or web address] Orig Print D/T: S: 06/27/2021 (4078) PAGE 1 Signed Report- CT ABD PELVIS [id number] 00:00:00 [facility] : 1970 Sex: MName: DORA JOSEPH FSED : 1970 Age/S: 51 / M [address] [facility] Unit #: [id number] Loc: [place] [address] Phys: Steve Urias MD Acct: [id number] Dis Date: Status: REG ER PHONE #: Exam Date: 06/27/2021 1622 FAX #: Reason: pain in region of colostomy EXAMS: CPT CODE: [id number] CT ABD PELVIS W/CONT 41379 PROCEDURE INFORMATION: Exam: CT Abdomen And Pelvis [...] : 1970 Age/S: 51 / M [address] [facility] Unit #: [id number] Loc: [place] [address] Phys: Steve Urias MD Acct: [id number] Dis Date: Status: REG ER PHONE #: Exam Date: 06/27/2021 1625 FAX #: Reason: pain in region of colostomy EXAMS: CPT CODE: [id number] CT ABD PELVIS W/CONT 08033 <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 There is no evidence of associated intestinal obstruction. 2. No additional acute CT abnormalities of the abdomen or pelvis are identified. SL:131 at 1650 Reported and signed by: Marco Raman M.D. CC: Steve Urias MD Technologist:RT Alanna(R)(CT) CTDI: DLP: Trnscb Date/Time: 06/27/2021 (1649) tDIMAS Orig Print D/T: S: 06/27/2021 (1649) PAGE 2 Signed ReportCBC W/AUTO [id number] 09:20:00 Test Item Value Reference Range Interpretation [...] (test code NO = MDIFF) CBC W/AUTO [id number] 08:59:00 Test Item Value Reference Range Interpretation [...] REQUIRED (test code = MDIFF) BASIC METABOLIC [id number] 08:21:00 Test Item Value Reference Range Interpretation [...] 8.4 mg/dL 8.0-10.5 N CA) BASIC METABOLIC [id number] 08:34:00 Test Item Value Reference Range Interpretation [...] 8.4 mg/dL 8.0-10.5 N CA) CBC W/AUTO [id number] 07:41:00 Test Item Value Reference Range Interpretation [...] = MDIFF) UA RFLX MICR CULT IF [id number] 10:10:00 Test Item Value Reference Range Interpretation [...] Suprapubic Pain Temperature > 100.4 FSpecimen Description: [facility] MET[facility]OL[facility] [id number] 04:13:00 Test Item Value Reference Range Interpretation [...] mg/dL 8.0-10.5 N CA) Coronavirus 2019 nCoV [id number] 22:03:00 Test Item Value Reference Range Interpretation Comments Coronavirus 2019 Negative Negative Performed b y certified nCoV Bedside (radar tester at [place] [facility] code = CtrNegative res ults should [id number]) be treated as presumptive and, ifinconsis tent with clinical signs and symptoms or necessaryfor patient management, fifi uld be tested with an alternativemole cular assay. Negative result s do not preclude XAQB-AxC-6gykoa tion and should not be u sed as the sole basis forp atient management deci sions. Negative result s should beconsidered in the context of a patient's recent exposures,histo ry, presence of clinical sig ns and symptoms consis tentwith COVID-19. CBC W/AUTO [id number] 21:11:00 Test Item Value Reference Range Interpretation [...] MX#) 0.6 k/mm3 0.1-0.8 N BASIC METABOLIC [id number] 19:00:00 Test Item Value Reference Range Interpretation [...] POCGLU) 92 MG/DL - CT ABD PELVIS W/[id number] 00:00:00 [facility] : 1970 Sex: MName: DORA JOSEPH FSED : 1970 Age/S: 51 / M [address] [facility] Unit #: [id number] Loc: [place] [address] Phys: Marcello Benoit MD Acct: [id number] Dis Date: Status: KISHOR ZIEGLER #: Exam Date: 04/28/20211913 FAX #: Reason: epigastric and LLQ pain, R-sided colostomy EXAMS: CPT CODE: [id number] CT ABD PELVIS W/CONT 13080 PROCEDURE INFORMATION: Exam: CT Abdomen And Pelvis [...] : 1970 Age/S: 51 / M [address] [facility] Unit #: [id number] Loc: [place] [address] Phys: Marcello Benoit MD Acct: [id number] Dis Date: Status: REG ER PHONE #: Exam Date: 04/28/2021 468 FAX #: Reason: epigastric and LLQ pain, R-sided colostomy EXAMS: CPT CODE: [id number] CT ABD PELVIS W/CONT 58608 <Continued> Reproductive: Unremarkable as visualized. Bones/joints: Unremarkable. [...] PAGE 2 Signed Report- XR ABDOMEN 1 [id number] 12:53:00 Name: DORA JOSEPH [facility] : 1970 Age/S: 50 / M [address] Unit #: [id number] Loc: [place] [address] 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 Acct: [id number] Dis Date: Status: ADM IN PHONE#: [phone] Exam Date: 02/25/2020 1036 FAX #: Reason: abdominal distention EXAMS: CPT: [id number] ABDOMEN 1 V 49758 Fluoro Time: DAP (Gy m2): Air Kerma [...] MD PAGE1 Signed Report Name: DORA JOSEPH [facility] : 1970 Age/S: 50 / M [address] Unit #: [id number] Loc: [place] [address] 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 LINOLEUM PRINTER Acct: [id number] Dis Date: Status: ADM IN PHONE #: [phone] Exam Date: 02/25/2020 1036 FAX #: Reason: abdominal distention EXAMS: CPT: [id number] XR ABDOMEN 1 V 08471 Fluoro Time: DAP (Gy m2): Air Kerma (mGy): <Continued> Technologist: Nichole Dill, RT(R) Trnscb Date/Time: 02/25/2020 (8844) tJUDSONEFM1 Orig Print D/T: S: 02/25/2020 (4474) PAGE 2 Signed Report COMPREHENSIVE METABOLIC [id number] 08:20:00 Test Item Value Reference Range Interpretation [...] 50-136 L TOTAL (test code = ALKP) [id number] 08:20:00 Test Item Value Reference Range Interpretation Comments MAGNESIUM (test code = MAG) 2.2 MG/DL 1.8-2.4 N THYROID STIMULATING [id number] 08:20:00 Test Item Value Reference Range Interpretation Comments THYROID STIMULATING HORMONE 5.430 mcIU/ML 0.340-4.820 H (test code = TSH) CBC W/AUTO [id number] 07:55:00 Test Item Value Reference Range Interpretation [...] N NRBC#) UA RFLX MICR CULT IF [id number] 12:29:00 Test Item Value Reference Range Interpretation [...] culture: Suprapubic PainUA RFLX MICR CULT IF [id number] 12:29:00 Test Item Value Reference Range Interpretation [...] for culture: Suprapubic PainCOVID 19 Asymptomatic IH [id number] 22:09:00 Test Item Value Reference Range Interpretation [...] tent with COVID-19. - CT ABD PELVIS W/[id number] 21:10:00 Name: DORA JOSEPH [facility] : 1970 Age/S: 50 / M [address] Unit #: [id number] Loc: [place] [address] Phys: Evin Castellanos MD Acct: [id number] Dis Date: Status: REG ZARIAHOBRANDO #: [phone] Exam Date: 02/23/20202047 FAX #: Reason: diffuse abdomen pain and distention EXAMS: CPT: [id number] CT ABD PELVIS W/CONT 38388 EXAM: - CT ABD PELVIS W/CONT LOCATION: [...] 1 Signed Report (CONTINUED) Name: DORA JOSEPH [facility] : 1970 Age/S: 50 / M [address] [facility] Unit #: [id number] Loc: [place] [address] Phys: Evin Castellanos MD Acct: [id number] Dis Date: Status: REG ER PHONE #: [phone] Exam Date: 02/23/20202047 FAX #: Reason: diffuse abdomen pain and distention EXAMS: CPT: [id number] CT ABD PELVIS W/CONT 23105 <Continued> CT. No bowel wall thickening or [...] No evidence of small bowel obstruction. at 2110 Reported and signed by: Marybel José M.D. CC: Susana Meza SAFETY TRAINER; Carl Flowers Technologist:Rudy Zuniga, RT(R)(CT)(MRI) CTDI: DLP: Trnscb Date/Time: 02/23/2020 (2109) t.SDR.TH15 Orig Print D/T: S: 02/23/2020 (2112) PAGE 2 Signed Report- XR CHEST 1 [id number] 21:03:00 Name: DORA JOSEPH [facility] : 1970 Age/S: 50 / M [address] Unit #: [id number] Loc: [place] [address] Phys: Evin Castellanos MD Acct: [id number] Dis Date: Status: REG KARLIE #: [phone] Exam Date: 02/23/20202055 FAX #: Reason: Code Sepsis EXAMS: CPT: [id number] XR CHEST 1 V 19483 Fluoro Time: DAP (Gy m2): Air Kerma [...] disease. 2. Chronic colonic air distention unchanged. [id number] Reported and signed by: Monica Quijano MD CC: Susana Meza SAFETY TRAINER; Carl Luevano MD PAGE 1 Signed Report Name: DORA JOSEPH [place] : 1970 Age/S: 50 / M [address] Unit #: [id number] Loc: [place] [address] Phys: Evin Castellanos MD Acct: [id number] Dis Date: Status: REG ER PHONE #: [phone] Exam Date: 02/23/20202055 FAX #: Reason: Code Sepsis EXAMS:CPT: [id number] XR CHEST 1 V 08019 Fluoro Time: DAP (Gy m2): Air Kerma (mGy): <Continued> Technologist: Rudy Zuniga RT(R)(CT)(MRI) Trnscb Date/Time: 02/23/2020 (2102) t.SDR.CLW Orig Print D/T:S: 02/23/2020 (2106) PAGE 2 Signed ReportBASIC METABOLIC [id number] 20:02:00 Test Item Value Reference Range Interpretation [...] 8.5-10.1 N Completed by Nursing: NOHEPATIC FUNCTION [id number] 20:02:00 Test Item Value Reference Range Interpretation [...] N code = ALKP) Completed by Nursing: [id number] 20:02:00 Test Item Value Reference Range Interpretation Comments LIPASE (test code = LIP) 97 Unit/L 114-286 L Completed by Nursing: [id number]-[id number] 20:02:00 Test Item Value Reference Range Interpretation [...] brittani yby method. Completed by Nursing: NOLACTIC [id number] 19:59:00 Test Item Value Reference Range Interpretation Comments LACTIC ACID (test code = LACT) 1.2 mmol/L 0.4-2.0 N CBC W/AUTO [id number] 19:46:00 Test Item Value Reference Range Interpretation [...] CRITERIA = MDIFF) - XR ABDOMEN 2 [id number] 06:22:00 Name: DORA JOSEPH [facility] : 1970 Age/S: 50 / M [address] Unit #: [id number] Loc: [place] [address] Phys: León Robertson MD Acct: [id number] Dis Date: Status: ADM IN PHONE #: [phone] Exam Date: 02/19/2020439 FAX #: Reason: megacolon EXAMS: CPT: [id number] XRABDOMEN 2 V 04626 Fluoro Time: DAP (Gy m2): Air Kerma [...] M.D. CC: León Robertson MD; [facility]oco [place] [facility] 1 Signed Report Name: DORA JOSEPH [facility] : 1970 Age/S: 50 / M [address] Unit #: [id number] Loc: [place] [address] Phys: León Robertson MD Acct: [id number] Dis Date: Status: ADM IN PHONE #: [phone] Exam Date: 02/19/2020439 FAX #: Reason: megacolon EXAMS: CPT: [id number] XR ABDOMEN 2 V 98682 Fluoro Time: DAP (Gy m2): Air Kerma (mGy): <Continued> Ciara hnologist: Carrie Barnett, RT(R)(CT) Trnscb Date/Time: 02/19/2020 (621) tJUDSONAL7 Orig Print D/T: S: 02/19/2020 (31) PAGE 2 Signed ReportBASIC METABOLIC [id number] 05:52:00 Test Item Value Reference Range Interpretation [...] CA) 8.5 MG/DL 8.5-10.1 N CBC W/AUTO [id number] 05:40:00 Test Item Value Reference Range Interpretation [...] NO DIFF/SCN CRITERIA = MDIFF) BASIC METABOLIC [id number] 06:52:00 Test Item Value Reference Range Interpretation [...] CA) 8.3 MG/DL 8.5-10.1 L CBC W/AUTO [id number] 06:39:00 Test Item Value Reference Range Interpretation [...] DIFF/SCN CRITERIA = MDIFF) Coronavirus 2019 nCoV [id number] 05:35:00 Test Item Value Reference Range Interpretation [...] tent with COVID-19. - XR ABDOMEN 1 [id number] 07:32:00 Name: DORA JOSEPH [place] : 1970 Age/S: 49 / M [address] Unit #: [id number] Loc: [place] [address] Phys: Jay Mayo MD Acct: [id number] Dis Date: Status: ADMIN PHONE #: [phone] Exam Date: 01/10/2020 0658 FAX #: Reason: follow up colonic ileus EXAMS: CPT: [id number] XR ABDOMEN 1 V 56481 Fluoro Time: DAP (Gy m2): Air Kerma [...] PAGE 1 Signed Report Name: DORA JOSEPH [place] : 1970 Age/S: 49 / M [address] Unit #: [id number] Loc: [place] [address] Phys: Jay Mayo MD Acct: [id number] Dis Date: Status: ADM IN PHONE #: [phone] Exam Date: 01/10/2020 0658 FAX #: Reason: follow up colonic ileus EXAMS: CPT: [id number] XR ABDOMEN 1 V 20667 Fluoro Time: DAP (Gy m2): Air Kerma (mGy): <Continued> Technologist: Bakari De Leon RT(R)(CT) Trnscb Date/Time: 01/10/2020(0732) GarettCB5 Orig Print D/T: S: 01/10/2020 (7045) PAGE 2 Signed ReportCOMPREHENSIVE METABOLIC [id number] 05:56:00 Test Item Value Reference Range Interpretation [...] TOTAL (test code = ALKP) CBC W/AUTO [id number] 05:42:00 Test Item Value Reference Range Interpretation [...] = NO DIFF/SCN CRITERIA MDIFF) BASIC METABOLIC [id number] 06:59:00 Test Item Value Reference Range Interpretation [...] code = CA) 8.5 MG/DL 8.5-10.1 N [id number] 06:59:00 Test Item Value Reference Range Interpretation Comments MAGNESIUM (test code = MAG) 2.2 MG/DL 1.8-2.4 PROTHROMBIN [id number] 06:39:00 Test Item Value Reference Range Interpretation Comments PT PATIENT (test code = PTP) 13.1 SECONDS 9.3-12.9 H INTERNATIONAL NORMAL RATIO 1.16 INR Unit 0.8-1.2 N (test code = INR) CBC W/AUTO [id number] 06:22:00 Test Item Value Reference Range Interpretation [...] DIFF/SCN CRITERIA MDIFF) - XR ABDOMEN 1 [id number] 05:39:00 Name: DORA JOSEPH [facility] : 1970 Age/S: 49 / M [address] Unit #: [id number] Loc: [place] [address] 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 Acct: [id number] Dis Date: Status: ADM IN PHONE #: [phone] Exam Date: 01/09/2020 05 FAX #: Reason: colonic ileus/obstruction EXAMS: CPT: [id number] XR ABDOMEN 1 V 65425 Fluoro Time: DAP (Gy m2): Air Kerma [...] PAGE 1 Signed Report Name: DORA JOSEPH [facility] [place] : 1970 Age/S: 49 / M [address] Unit #: [id number] Loc: [place] [address] 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 LINOLEUM PRINTER Acct: [id number] Dis Date: Status: ADM IN PHONE #: [phone] Exam Date: 01/09/2020 05 FAX #: Reason: colonic ileus/obstruction EXAMS: CPT: [id number] XR ABDOMEN 1V 89750 Fluoro Time: DAP (Gy m2): Air Kerma (mGy): <Continued> Technologist: Carrie Barnett, RT(R)(CT) Trnscb Date/Time: 01/09/2020 (538) tJUDSONFC Orig Print D/T: S: 01/09/2020 (0542) PAGE 2Signed ReportCoronavirus 2018 nCoV [id number] 22:38:00 Test Item Value Reference Range Interpretation Comments Coronavirus 2019 nCoV Bedside (test Negative Negative code = [id number]) Emergent procedure? YESCoronavirus 2019 nCoV [id number] 22:38:00 Test Item Value Reference Range Interpretation Comments Coronavirus 2019 nCoV Bedside (test Negative Negative code = [id number]) Emergent procedure? YESBASIC METABOLIC [id number] 18:42:00 Test Item Value Reference Range Interpretation [...] CA) 8.5 MG/DL 8.5-10.1 N CBC W/AUTO [id number] 10:50:00 Test Item Value Reference Range Interpretation [...] = NO DIFF/SCN CRITERIA MDIFF) COMPREHENSIVE METABOLIC [id number] 10:46:00 Test Item Value Reference Range Interpretation [...] 50-136 N TOTAL (test code = ALKP) [id number] 10:46:00 Test Item Value Reference Range Interpretation Comments MAGNESIUM (test code = MAG) 2.6 MG/DL 1.8-2.4 H COMPREHENSIVE METABOLIC [id number] 10:34:00 Test Item Value Reference Range Interpretation [...] TOTAL (test Unit/L 50-136 code = ALKP) [id number] 10:34:00 Test Item Value Reference Range Interpretation Comments MAGNESIUM (test code = MAG) MG/DL 1.8-2.4 - XR ABDOMEN 1 [id number] 08:28:00 Name: DORA JOSEPH [facility] : 1970 Age/S: 49 / M [address] Unit #: [id number] Loc: [place] [address] Phys: Yas Edwards MD Acct: [id number] Dis Date: Status: ADM IN PHONE#: [phone] Exam Date: 01/08/2020 0510 FAX #: Reason: ileus EXAMS: CPT: [id number] XR ABDOMEN 1 V 67688 Fluoro Time: DAP (Gy m2): Air Kerma [...] PAGE 1 Signed Report Name: DORA JOSEPH [facility] : 1970 Age/S: 49 / M [address] Unit #: [id number] Loc: [place] [address] Phys: Yas Edwards MD Acct: [id number] Dis Date: Status: ADM IN PHONE #: [phone] Exam Date: 01/08/2020 0510 FAX #: Reason: ileus EXAMS: CPT: [id number] XR ABDOMEN 1 V 13357 Fluoro Time: DAP (Gy m2): Air Kerma (mGy): <Continued> Technologist: Carrie Barnett, RT(R)(CT); ... Trnscb Date/Time: 01/08/2020 (827) t.JTM Orig Print D/T: S: 01/08/2020 (830) PAGE 2 Signed ReportCOMPREHENSIVE METABOLIC [id number] 07:08:00 Test Item Value Reference Range Interpretation [...] 50-136 L TOTAL (test code = ALKP) [id number] 07:08:00 Test Item Value Reference Range Interpretation Comments MAGNESIUM (test code = MAG) 1.3 MG/DL 1.8-2.4 L COMPREHENSIVE METABOLIC [id number] 05:16:00 Test Item Value Reference Range Interpretation [...] 50-136 L TOTAL (test code = ALKP) [id number] 05:16:00 Test Item Value Reference Range Interpretation Comments MAGNESIUM (test code = MAG) 1.3 MG/DL 1.8-2.4 L CBC W/AUTO [id number] 05:02:00 Test Item Value Reference Range Interpretation [...] (test code = NO DIFF/SCN CRITERIA MDIFF) [id number] 16:51:00 Test Item Value Reference Range Interpretation Comments MAGNESIUM (test code = MAG) 2.3 MG/DL 1.8-2.4 N FE W/TOTAL IRON BINDING CAP.2020-01-07 16:51:00 Test Item Value Reference Range Interpretation Comments SERUM IRON (test code = IRON) 38 mcG/DL 65-175 L TOTAL IRON BINDING CAPACITY (test 322 mcG/DL 250-450 N code = TIBC) IRON SATURATION (test code = 12 % calc 12-57 N FESAT) [id number] 16:51:00 Test Item Value Reference Range Interpretation Comments FERRITIN (test code = DAVID) 17.6 NG/ML 5.0-323.0 N CALCIUM [id number] 16:50:00 Test Item Value Reference Range Interpretation Comments CALCIUM IONIZED (test code = NAVEED) 1.12 mmol/L 1.12-1.32 N - XR ABDOMEN 1 [id number] 10:29:00 Name: DORA JOSEPH [place] : 1970 Age/S: 49 / M [address] Unit #: [id number] Loc: [place] [address] Phys: Verona Frost PA-C Acct: [id number] Dis Date: Status: ADM IN PHONE #: [phone] Exam Date: 01/07/2020 0712 FAX #: Reason: reassess SBO EXAMS: CPT: [id number] XR ABDOMEN 1 V 29152 Fluoro Time: DAP (Gy m2): Air Kerma (mGy): CLINICAL INFORMATION: Bowel obstruction. Dictation location: 9 Comparison: 01/06/2020 reported distended colon Technique: Supine [...] PAGE 1 Signed Report Name: DORA JOSEPH [facility] : 1970 Age/S: 49 / M [address] Unit #: [id number] Loc: [place] [address] Phys: Verona Frost PA-C Acct: [id number] Dis Date: Status: ADM IN PHONE #: [phone] Exam Date: 01/07/2020 0712 FAX #: Reason: reassess SBO EXAMS: CPT: [id number] XR ABDOMEN 1 V 88796 Fluoro Time: DAP (Gy m2): Air Kerma (mGy): <Continued> Technologist: Bakari De Leon RT(R)(CT) Trnscb Date/Time: 01/07/2020 (1460) t.FLEXR.AGV Orig Print D/T: S: 01/07/2020 (7947) PAGE 2 Signed ReportBASIC METABOLIC PANEL 2020-01-07 [...] CA) 5.4 MG/DL 8.5-10.1 LL CBC W/AUTO [id number] 06:49:00 Test Item Value Reference Range Interpretation [...] = NO DIFF/SCN CRITERIA MDIFF) COMPREHENSIVE METABOLIC [id number] 06:10:00 Test Item Value Reference Range Interpretation [...] TOTAL (test code = ALKP) CBC W/AUTO [id number] 05:52:00 Test Item Value Reference Range Interpretation [...] DIFF/SCN CRITERIA MDIFF) - XR ABDOMEN 1 [id number] 01:30:00 Name: DORA JOSEPH [facility] : 1970 Age/S: 49 / M [address] Unit #: [id number] Loc: [place] [address] Phys: Ted Coleman NP Acct: [id number] Dis Date: Status: ADM INPHONE #: [phone] Exam Date: 01/06/2020 010 FAX #: Reason: NG Tube Placement Verification EXAMS: CPT: [id number] XR ABDOMEN 1 V 60473 Fluoro Time: DAP (Gy m2): Air Kerma [...] M.D. CC: Mark Perea MD; Ted Miller SAFETY TRAINER PAGE 1 Signed Report Name: DORA JOSEPH [facility] : 1970 Age/S: 49 / M [address] Unit #: [id number] Loc: [place] [address] Phys: Ted Coleman NP Acct: [id number] Dis Date: Status: ADM IN PHONE #: [phone] Exam Date: 01/06/2020 0100 FAX #: Reason: NG Tube Placement Verification EXAMS: CPT: [id number] XR ABDOMEN 1 V 50097 Fluoro Time: DAP (Gy m2): Air Kerma (mGy): <Continued> Technologist: RT Tatum(R) Trnrib Date/Time: 01/06/2020 (013) GarettFC Orig Print D/T: S: 01/06/2020 (013) PAGE 2 Signed Report- CT ABD PELVIS W/O [id number] 19:42:00 Starr: St: REG -- Name: DORA JOSEPH [facility] : 1970 Age/S: 49/M [address] [facility] Unit: [id number] Loc: [place]: [place] [address] Acct: [id number] Dis Date: Status: REG ER PHONE #: [phone] Exam Date: 12/13/2019 192 FAX #: [phone] Reason: pain EXAMS: CPT CODE: [id number] CT ABD PELVIS W/O CONT 51929 Examination: CT scan abdomen and pelvis without [...] ALMANZAR Trnscrd Dt/Tm: 12/13/2019 (1941) tJUDSONVR5 Orig PrintD/T: S: 12/13/2019 (5 PAGE 1 [...] code = CA) 8.6 mg/dl 8.0-10.5 N [id number] 18:49:00 Test Item Value Reference Range Interpretation Comments LIPASE (test code = LIP) 97 Units/L 65.0-230.0 N CBC W/AUTO [id number] 18:38:00 Test Item Value Reference Range Interpretation [...] K/mm3 0.0-0.2 N - XR CHEST 1 [id number] 18:36:00 Starr: St: PRE -- Name: DORA JOSEPH [facility] : 1970 Age/S: 49/M [address] [facility] [place] Unit #: [id number] Loc: [place], [place]: [place] [address] Acct: [id number] Dis Date: Status: PRE ER PHONE #: [phone] Exam Date: 12/13/2019 1822 FAX #: [phone] Reason: SOB EXAMS: CPT CODE: [id number] XR CHEST 1 V 45112 Examination: One view chest x-ray Location code: [...] : By: GarettVR5 PAGE 1 Signed Report Starr: St: PRE ------ Name: DORA JOSEPH [facility] : 1970 Age/S: 49/M [address] [place] Unit #: [id number] Loc: [place], [place]: [place] [address] Acct: [id number] Dis Date: Status: PRE ER PHONE #: [phone] Exam Date: 12/13/2019 182 FAX #: [phone] Reason:SOB EXAMS: CPT CODE: [id number] XR CHEST 1 V 75418 (Continued) Orig Print D/T: S: 12/13/2019 (1839)PAGE 2 Signed ReportCBC W/PLT COUNT & AUTO [id number] 08:02:00 Test Item Value Reference Range Interpretation [...] Received comment: User comments: Slide comments:BASIC METABOLIC [id number] 07:34:00 Test Item Value Reference Range Interpretation [...] S NOT APPLICABLE FOR DIALYSIS PATIEN TS. [id number] 07:26:00 Test Item Value Reference Range Interpretation Comments PHOSPHORUS (BEAKER) (test code = 3.1 mg/dL 2.3-4.7 604) [id number] 07:26:00 Test Item Value Reference Range Interpretation Comments MAGNESIUM (BEAKER) (test code = 1.6 mg/dL 1.6-2.6 627) RAD, ABDOMEN/KUB, 1 VIEW [id number] 07:04:00Reason for exam:->ileusFINAL REPORT Abdomen , one [...] MDReport Verified Date/Time: 04/03/2019 07:04:46 Reading Location: [facility] B1 C013X Ortho Consult Reading Room BASIC METABOLIC [id number] 06:47:00 Test Item Value Reference Range Interpretation [...] code = 413) URINALYSIS WITH MICROSCOPIC IF [id number] 22:01:00 Test Item Value Reference Range Interpretation [...] 463) SOURCE(BEAKER) (test code = 2795) URINALYSIS [id number] 22:01:00 Test Item Value Reference Range Interpretation Comments RBC UA (BEAKER) (test code = 519) 18 /HPF WBC UA (BEAKER) (test code = 520) 1 /HPF CALCIUM OXALATE CRYSTALS (BEAKER) Occasional (test code = 518) [id number] 05:49:00 Test Item Value Reference Range Interpretation Comments PHOSPHORUS (BEAKER) (test code = 2.5 mg/dL 2.3-4.7 604) [id number] 05:49:00 Test Item Value Reference Range Interpretation Comments MAGNESIUM (BEAKER) (test code = 1.7 mg/dL 1.6-2.6 627) BASIC METABOLIC [id number] 05:49:00 Test Item Value Reference Range Interpretation [...] (BEAKER) (test code = 413) BASIC METABOLIC [id number] 06:19:00 Test Item Value Reference Range Interpretation [...] S NOT APPLICABLE FOR DIALYSIS PATIEN TS. [id number] 06:10:00 Test Item Value Reference Range Interpretation Comments MAGNESIUM (BEAKER) 1.8 mg/dL 1.6-2.6 Specimen slightly (test code = 627) hemolyzed [id number] 06:10:00 Test Item Value Reference Range Interpretation [...] (BEAKER) (test code = 413) BASIC METABOLIC [id number] 04:57:00 Test Item Value Reference Range Interpretation [...] S NOT APPLICABLE FOR DIALYSIS PATIEN TS. [id number] 04:55:00 Test Item Value Reference Range Interpretation Comments PHOSPHORUS (BEAKER) (test code = 2.6 mg/dL 2.3-4.7 604) [id number] 04:55:00 Test Item Value Reference Range Interpretation Comments MAGNESIUM (BEAKER) (test code = 1.8 mg/dL 1.6-2.6 627) CT, [id number] 14:16:00FINAL REPORT TECHNIQUE: CT of the abdomen [...] Kim MDReport Verified Date/Time: 03/29/2019 14:16:01Reading Location: [facility] C013Y CT Body Reading Room , ABDOMEN/KUB, 1 VIEW [id number] 10:23:00Reason for exam:->evaluate ileusFINAL REPORT Technique: Supine [...] Verified Date/Time: 03/29/2019 10:23:29 Reading Location: [facility] Reading Room CBC (HEMOGRAM ONLY)2019-03-29 08:10:00 Test [...] WBC 0-0 (BEAKER) (test code = 413) [id number] 06:20:00 Test Item Value Reference Range Interpretation Comments PHOSPHORUS (BEAKER) (test code = 2.6 mg/dL 2.3-4.7 604) [id number] 06:20:00 Test Item Value Reference Range Interpretation Comments MAGNESIUM (BEAKER) (test code = 2.0 mg/dL 1.6-2.6 627) BASIC METABOLIC [id number] 06:20:00 Test Item Value Reference Range Interpretation [...] TS. RAD, ABDOMEN SERIES W/ UPRIGHT [place] [id number] 22:18:00Reason for exam:- >eval ileusFINAL REPORT CLINICAL [...] Date/Time: 03/28/2019 22:18:50 RAD, ABDOMEN/KUB, 1 VIEW [id number] 11:23:00Reason for exam:->abdominal distensionShould this be performed [...] Cruz Verified Date/Time: 03/28/2019 11:23:34 Reading Location: [facility] Radiology Reading Room TISSUE [id number] 09:00:00Surgical Pathology Report Case: [id number] Authorizing Provider: Graciela Garrison MD Collected: 03/25/2019 1133 Ordering Location: [facility] Received: 03/25/2019 1527 SERVICES Pathologist: [...] NEGATIVEFOR MALIGNANCY Signing Pathologist Direct Phone Line: [phone] signed by Jordan Celaya MD on 03/28/2019 at 9:00 [id number] and postop diagnosis: ileostomy statusA. End ileostomy; [...] nodes are not identified in the mesentery. Small Products I Assembler sections are submitted. Section code: A, real estate representative section of each end of first mentioned segment of small bowel; A2, real estate representative of first mentioned segment of small bowel mucosa; A3, area of hemorrhagic mesentery of second mentioned segment of mucosa; A4, real estate representative of hemorrhagic mucosa at open end of second portion of small bowel; A5, real estate representative of stapled margin from second mentioned [...] specimen is serially sectioned to reveal a baad, smooth mucosa. No fecaliths are present. The wall thickness is 0.2 cm. No gross lesions are identified. Small Products I Assembler sections are submitted. Section code: B1, proximal margin en face and tip; B2, real estate representative cross section. CG/pl Performed.[id number] 06:23:00 Test Item Value Reference Range Interpretation Comments PHOSPHORUS (BEAKER) (test code = 2.7 mg/dL 2.3-4.7 604) [id number] 06:23:00 Test Item Value Reference Range Interpretation Comments MAGNESIUM (BEAKER) (test code = 1.9 mg/dL 1.6-2.6 627) BASIC METABOLIC [id number] 06:23:00 Test Item Value Reference Range Interpretation [...] S NOT APPLICABLE FOR DIALYSIS PATIEN TS. [id number] 08:20:00 Test Item Value Reference Range Interpretation Comments PHOSPHORUS (BEAKER) (test code = 2.6 mg/dL 2.3-4.7 604) [id number] 08:20:00 Test Item Value Reference Range Interpretation Comments MAGNESIUM (BEAKER) (test code = 1.8 mg/dL 1.6-2.6 627) BASIC METABOLIC [id number] 08:20:00 Test Item Value Reference Range Interpretation [...] S NOT APPLICABLE FOR DIALYSIS PATIEN TS. [id number] 06:06:00 Test Item Value Reference Range Interpretation Comments PHOSPHORUS (BEAKER) (test code = 4.1 mg/dL 2.3-4.7 604) [id number] 06:06:00 Test Item Value Reference Range Interpretation Comments MAGNESIUM (BEAKER) (test code = 1.8 mg/dL 1.6-2.6 627) BASIC METABOLIC [id number] 06:06:00 Test Item Value Reference Range Interpretation [...] S NOT APPLICABLE FOR DIALYSIS PATIEN TS. [id number] 06:03:00 Test Item Value Reference Range Interpretation Comments PHOSPHORUS (BEAKER) (test code = 4.2 mg/dL 2.3-4.7 604) [id number] 06:03:00 Test Item Value Reference Range Interpretation Comments MAGNESIUM (BEAKER) (test code = 2.0 mg/dL 1.6-2.6 627) BASIC METABOLIC [id number] 06:03:00 Test Item Value Reference Range Interpretation [...] WBC 0-0 (BEAKER) (test code = 413) [id number] 05:52:00 Test Item Value Reference Range Interpretation Comments PHOSPHORUS (BEAKER) (test code = 4.2 mg/dL 2.3-4.7 604) [id number] 05:52:00 Test Item Value Reference Range Interpretation Comments MAGNESIUM (BEAKER) (test code = 1.9 mg/dL 1.6-2.6 627) BASIC METABOLIC [id number] 05:52:00 Test Item Value Reference Range Interpretation [...] S NOT APPLICABLE FOR DIALYSIS PATIEN TS. [id number] 06:51:00 Test Item Value Reference Range Interpretation Comments PHOSPHORUS (BEAKER) (test code = 4.3 mg/dL 2.3-4.7 604) [id number] 06:51:00 Test Item Value Reference Range Interpretation Comments MAGNESIUM (BEAKER) (test code = 2.0 mg/dL 1.6-2.6 627) BASIC METABOLIC [id number] 06:51:00 Test Item Value Reference Range Interpretation [...] 0-0 (BEAKER) (test code = 413) TISSUE [id number] 11:50:00Surgical Pathology Report Case: [id number] Authorizing Provider: Mela Larson MD Collected: 03/18/2019 1827 Ordering Location: [facility] Received: 03/21/2019 0823 SERVICES Pathologist: Jordan Celaya MD Specimen: Small Bowel, NOS A. SMALL BOWEL, ILEOSTOMY PROLAPSE, TAKEDOWN: - ANASTOMOSIS SITE WITH ACTIVE CHRONIC INFLAMMATION AND FOCAL ISCHEMIC CHANGES - MUCOSAL RESECTION MARGINS, NEGATIVE FOR MALIGNANCY - ONE BENIGN LYMPH NODE (0/1) - NEGATIVE FOR DYSPLASIA OR MALIGNANCYSigning Pathologist Direct Phone Line: [phone] signed by Jordan Celaya MDon 03/22/2019 at 11:50 [id number] of ileostomyReceived in a container labeled "small [...] 0.5 to 1.2 cm in greatest dimension. Small Products I Assembler sections are submitted as follows: A1-A2, mucosal resection margin, en face; A3-A6, real estate representative sections of the possible ostomy stump; A7-A11, serial real estate representative sections from mucosal resection margin to the possible ostomy stump; A12, two lymph nodes. TH/plPerformed.[id number] 06:58:00 Test Item Value Reference Range Interpretation Comments PHOSPHORUS (BEAKER) (test code = 3.8 mg/dL 2.3-4.7 604) [id number] 06:58:00 Test Item Value Reference Range Interpretation Comments MAGNESIUM (BEAKER) (test code = 2.0 mg/dL 1.6-2.6 627) BASIC METABOLIC [id number] 06:58:00 Test Item Value Reference Range Interpretation [...] PATIEN TS. CBC W/PLT COUNT & AUTO [id number] 05:42:00 Test Item Value Reference Range Interpretation [...] PERCENT (BEAKER) (test code = 2801) [place], [id number] 17:42:00Reason for exam:->evaluate for colon stricture as [...] MDReport Verified Date/Time: 03/21/2019 17:42:21 Reading Location: [facility] B1 C013X Ortho Consult Reading Room [id number] 03:58:00 Test Item Value Reference Range Interpretation Comments PHOSPHORUS (BEAKER) (test code = 3.0 mg/dL 2.3-4.7 604) [id number] 03:58:00 Test Item Value Reference Range Interpretation Comments MAGNESIUM (BEAKER) (test code = 2.0 mg/dL 1.6-2.6 627) BASIC METABOLIC [id number] 03:58:00 Test Item Value Reference Range Interpretation [...] PATIEN TS. CBC W/PLT COUNT & AUTO [id number] 03:20:00 Test Item Value Reference Range Interpretation [...] (BEAKER) (test code = 2801) BASIC METABOLIC [id number] 06:26:00 Test Item Value Reference Range Interpretation [...] S NOT APPLICABLE FOR DIALYSIS PATIEN TS. [id number] 06:05:00 Test Item Value Reference Range Interpretation Comments PHOSPHORUS (BEAKER) (test code = 2.2 mg/dL 2.3-4.7 L 604) [id number] 06:05:00 Test Item Value Reference Range Interpretation Comments MAGNESIUM (BEAKER) (test code = 2.0 mg/dL 1.6-2.6 627) CBC W/PLT COUNT & AUTO [id number] 05:25:00 Test Item Value Reference Range Interpretation [...] 0-1 PERCENT (BEAKER) (test code = 2801) [id number] 04:31:00 Test Item Value Reference Range Interpretation Comments PHOSPHORUS (BEAKER) (test code = 3.7 mg/dL 2.3-4.7 604) [id number] 04:31:00 Test Item Value Reference Range Interpretation Comments MAGNESIUM (BEAKER) (test code = 1.9 mg/dL 1.6-2.6 627) BASIC METABOLIC [id number] 04:31:00 Test Item Value Reference Range Interpretation [...] PATIEN TS. CBC W/PLT COUNT & AUTO [id number] 04:15:00 Test Item Value Reference Range Interpretation [...] 0-1 PERCENT (BEAKER) (test code = 2801) [id number] 06:41:00 Test Item Value Reference Range Interpretation Comments PHOSPHORUS (BEAKER) (test code = 3.1 mg/dL 2.3-4.7 604) [id number] 06:41:00 Test Item Value Reference Range Interpretation Comments MAGNESIUM (BEAKER) (test code = 1.9 mg/dL 1.6-2.6 627) BASIC METABOLIC [id number] 06:41:00 Test Item Value Reference Range Interpretation [...] PATIEN TS. CBC W/PLT COUNT & AUTO [id number] 06:36:00 Test Item Value Reference Range Interpretation [...] PERCENT (BEAKER) (test code = 2801) CT, [id number] 17:04:00No PO contrastFINAL REPORT ABDOMINAL AND PELVIS [...] MDReport Verified Date/Time: 03/17/2019 17:04:19 Reading Location: [facility] B1 C013Y CT Body Reading Room XR ABDOMEN 2 [id number] 09:03:45XR ABDOMEN 2 VIEWSLOCATION: [id number]: Colstomy ProlapseCOMPARISON: Chest radiograph 04/15/2017, CT of [...] Nonspecific, nonobstructive bowel gas pattern.XR CHEST 1 [id number] 11:32:15EXAM: CHEST ONE VIEWINDICATION: Chest painCOMPARISON: None availableTECHNIQUE: AP view of the chest.FINDINGS: The cardiomediastinal silhouette is normal. The lungs are clearbilaterally. No pneumothoraxor pleural effusion is identified. Theosseous structures are unremarkable.IMPRESSION: No acute cardiopulmonary process.LOCATION: [id number] Type and [id number] 21:21:00 Test Item Value Reference Range Interpretation Comments ABO type (test code = ABO) O Rh Type (test code = RH) Positive Comprehensive Metabolic [id number] 20:36:00 Test Item Value Reference Range Interpretation [...] the National Kidney Foundation,http ://nkd ep.nih.gov Alcohol/Ethanol, [id number] 20:36:00 Test Item Value Reference Range Interpretation Comments Alcohol, Ethyl <0.01 g/dL 0.00-0.01 N Intoxicated 0 .080 g/dL (test code = ETOH) or more Prothrombin [id number] 20:00:00 Test Item Value Reference Range Interpretation Comments PT (test code = PT) 10.10 seconds 9.78-13.35 N INR (test code = INR) 0.88 Ratio 0.6-1.2 N Partial Thromboplastin [id number] 20:00:00 Test Item Value Reference Range Interpretation Comments aPTT (test code = PTT) 31.50 seconds 24.39-37.25 N CBC with [id number] 19:50:00 Test Item Value Reference Range Interpretation [...] code = ALYMPH) 2.2 K/cumm 0.5-4.6 N Alger Abs (test code = AMONO) 0.4 K/cumm 0.0-1.2 N Eos Abs (test code = AEOS) 0.17 K/cumm 0.00-0.74 N Baso Abs (test code = ABASO) 0.0 K/cumm 0.00-0.21 N 48896& PELVIS W/O [id number] 17:36:28CT ABDOMEN AND PELVIS WITHOUT CONTRAST.CLINICAL HISTORY: [...]
--- NOTE | 2022-07-11 10:14 | ER ---
Nurse's Notes [facility] Name: Rico Mcneill Age: 52 yrs Sex: Male : 1970 Arrival Date: 07/11/2022 Time: 08:37 Bed 9 Private MD: Diagnosis: Encounter for attention to colostomy Presentation: 07/11 08:55 Chief complaint: Patient states: Here to receive colostomy supplies. Coronavirus ss screen: Client denies travel out of the [place] in the last 14 days. Ebola Screen: Patient denies exposure to infectious person. Patient denies travel to an Ebola-affected area in the 21 days before illness onset. Initial Sepsis Screen: Does the patient meet any 2 criteria? No. Patient's initial sepsis screen is negative. Does the patient have a suspected source of infection? No. Patient's initial sepsis screen is negative. Risk Assessment: Do you want to hurt yourself or someone else? Patient reports no desire to harm self or others. Onset of symptoms is unknown. 08:55 Method Of Arrival: Ambulatory ss 08:55 Acuity: OCTAVIO 5 ss Historical: - Allergies: 08:56 NKDA; ss - PMHx: 08:56 ileostomy; ss - PSHx: 08:56 Small bowel resection with ileostomy; ss Screenin:57 Abuse screen: Denies threats or abuse. Denies injuries from another. Nutritional ss screening: No deficits noted. Tuberculosis screening: Never had TB. Fall Risk None identified. Assessment: 08:57 General: Appears in no apparent distress. comfortable, Behavior is calm, cooperative, ss Denies fever, feeling ill. Pain: Denies pain. Neuro: Level of Consciousness is awake, alert, obeys commands. Respiratory: Airway is patent Respiratory effort is even, unlabored, Respiratory pattern is regular, symmetrical. GI: prolapsed stoma noted. This is baseline for patient. Derm: Skin is intact, is healthy with good turgor, Skin is pink, warm \T\ dry. normal. 09:05 Reassessment: 2- system colostomy supplies given to patient x 2. Pt is putting supplies ss on himself. 09:38 Reassessment: Spoke with Laura Diaz, social work manager who states that she had been ss working in the past to assist patient to getting supplies delivered, but is having issues because patient does not have a phone nor an address and that she has been reaching out to local churches to see if they will assume responsibility to have supplies delivered there, but has not had any success as of yet. Laura states she will call chaplain Hanks to see if he has any suggestions. Awaiting phone call back. Vital Signs: 08:55 BP 127 / 72; Pulse 60; Resp 16; Temp 98.4(TE); Pulse Ox 100% on R/A; Pain 0/10; ss ED Course: 08:37 Patient arrived in ED. as 08:47 Miah Plummer PA is PHCP. jmm 08:47 Rashaun Jiménez MD is Attending Physician. m 08:56 Triage completed. ss 08:56 Arm band placed on right wrist. ss 08:57 Patient has correct armband on for positive identification. Bed in low position. ss 09:38 Eryn Aceves, BRITTNY is Primary Nurse. ss 10:16 No provider procedures requiring assistance completed. Patient did not have IV access ss during this emergency room visit. Administered Medications: No medications were administered Medication: 08:57 VIS not applicable for this client. ss Outcome: 10:13 Discharge ordered by . m 10:16 Discharged to home ambulatory. ss 10:16 Condition: good 10:16 Discharge instructions given to patient, Instructed on discharge instructions, follow up and referral plans. Demonstrated understanding of instructions, follow-up care. 10:17 Patient left the ED. ss Signatures: Miah Plummer PA PA jmm Martinez, Amelia as Eryn Aceves, BRITTNY RN ss
--- NOTE | 2022-07-11 10:14 | EDPHYS ---
Physician Documentation [facility] Name: Rico Mcneill Age: 52 yrs Sex: Male : 1970 Arrival Date: 07/11/2022 Time: 08:37 Bed 9 Private MD: JEANNETTE Physician Rashaun Jiménez HPI: 07/11 09:02 This 52 yrs old Male presents to ER via Ambulatory with complaints of ileostomy bag jmm replacement. 09:02 Onset: The symptoms/episode began/occurred at an unknown time. Associated signs and jmm symptoms: Pertinent negatives: abdominal pain, fever, shortness of breath, vomiting. The patient has experienced similar episodes in the past. Historical: - Allergies: 08:56 NKDA; ss - PMHx: 08:56 ileostomy; ss - PSHx: 08:56 Small bowel resection with ileostomy; ss ROS: 09:02 Constitutional: Negative for fever, chills, and weight loss, Cardiovascular: Negative jmm for chest pain, palpitations, and edema, Respiratory: Negative for shortness of breath, cough, wheezing, and pleuritic chest pain, Abdomen/GI: Negative for abdominal pain, nausea, vomiting, diarrhea, and constipation. 09:02 All other systems are negative. Exam: 09:02 Constitutional: This is a well developed, well nourished patient who is awake, alert, jmm and in no acute distress. Head/Face: atraumatic. Eyes: EOMI, no conjunctival erythema appreciated ENT: Moist Mucus Membranes Neck: Trachea midline, Supple Chest/axilla: Normal chest wall appearance and motion. Cardiovascular: Regular rate and rhythm. No edema appreciated Respiratory: Normal respirations, no respiratory distress appreciated Abdomen/GI: Non distended Back: Normal ROM Skin: General appearance color normal 09:02 Musculoskeletal/extremity: ROM: intact in all extremities. 09:02 Skin: Appearance: Color: normal in color. 09:02 Neuro: Orientation: is normal, Mentation: is normal, Gait: is steady. 09:02 Psych: Behavior/mood is pleasant, cooperative. Vital Signs: 08:55 BP 127 / 72; Pulse 60; Resp 16; Temp 98.4(TE); Pulse Ox 100% on R/A; Pain 0/10; ss MDM: 08:51 Patient medically screened. [facility] 10:12 Data reviewed: vital signs, nurses notes. Counseling: I had a detailed discussion with [facility] the patient and/or guardian regarding: the historical points, exam findings, and any diagnostic results supporting the discharge/admit diagnosis, the need for outpatient follow up, to return to the emergency department if symptoms worsen or persist or if there are any questions or concerns that arise at home. Administered Medications: No medications were administered Disposition Summary: 07/11/22 10:13 Discharge Ordered Location: Home [facility] Condition: Stable [facility] Diagnosis - Encounter for attention to colostomy [facility] Followup: [facility] - With: Private Physician - When: 2 - 3 days - Reason: Recheck today's complaints, Continuance of care, Re-evaluation by your physician Discharge Instructions: - Discharge Summary Sheet [facility] - Colostomy Home Guide, Adult [facility] Forms: - Medication Reconciliation Form [facility] - Thank You Letter [facility] - Antibiotic Education [facility] - Prescription Opioid Use [facility] Addendum: 07/13/2022 13:30 Co-signature as Attending Physician, Rashaun Jiménez MD I agree with the assessment and c bojorquez plan of care. Signatures: Rashaun Jiménez MD MD cha Mickail, Joel, PA PA [facility] Eryn Aceves, RN RN ss
[2022-07-11 10:47] VITALS: BP 127/72; TEMP 98.4; O2SAT 100
== END 2022-07-11 10:17 | disposition home or self-care (01) ==
LOC: ER 08:33
DX: Z43.3 Encounter for attention to colostomy (principal)
CPT/HCPCS: 99281

== ENCOUNTER 2022-07-24 10:13 | Inpatient (IN) | payer SELFPAY ==
[2022-07-24] MEDS ORDERED: FENTANYL CITR 100 MCG/2 ML ONE (10:40)
[2022-07-24] MEDS ORDERED: ONDANSETRON 4 MG/2 ML VIAL ONE (10:40)
[2022-07-24] MEDS ORDERED: NA CHLORIDE 0.9% 1,000 ML ONE ×2 (10:40→12:03)
[2022-07-24 10:52] LABS: Absolute Lymphocytes (CBC) 1.5 K/uL (0.7-4.9); Hematocrit 41.6 % (39.6-49.0); Lymphocytes % 16.9 % (15.3-44.8); MCV 84.6 fL (80-100); MPV 7.4 fL (7.6-11.3); RBC Red Blood Cell Count 4.91 M/uL (4.33-5.43)
--- OUTSIDE RECORDS SUMMARY | 2022-07-24 11:01 | XMS REPORT | Continuity of Care Document ---
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 Altered 250mg QD Take 1 Momin rris acid, 01-21 bowel tablet by [facility] vitamin C, 00:00: 23:59 elimination mouth 250 mg 00 :00 due to daily for tablet intestinal 60 days ostomy magnesium 2021- No Altered 800mg Q.5D Take 2 H arris oxide 01-21 bowel tablets by [facility] (MAG-OX) 00:00: 23:59 elimination mouth 2 400 mg 00 :00 due to times (241.3 mg intestinal daily for magnesium) ostomy 60 days tablet multivitami 2021- No Altered 1{tbl} QD Take 1 Lynne n with 01-21 bowel tablet by [facility] folic acid 00:00: 23:59 elimination mouth (THERA) 400 00 :00 due to daily for mcg tablet intestinal 60 days ostomy ascorbic 2021- No Altered 250mg QD Take 1 Momin rris acid, 01-21 bowel tablet by [facility] vitamin C, 00:00: 23:59 elimination mouth 250 mg 00 :00 due to daily for tablet intestinal 60 days ostomy magnesium 2021- No Altered 800mg Q.5D Take 2 H arris oxide 01-21 bowel tablets by [facility] (MAG-OX) 00:00: 23:59 elimination mouth 2 400 mg 00 :00 due to times (241.3 mg intestinal daily for magnesium) ostomy 60 days tablet multivitami 2021- No Altered 1{tbl} QD Take 1 Lynne n with 01-21-30 bowel tablet by [facility] folic acid 00:00: 23:59 elimination mouth (THERA) 400 00 :00 due to daily for mcg tablet intestinal 60 days ostomy ascorbic 2021- No Altered 250mg QD Take 1 Momin rris acid, 01-21-30 bowel tablet by [facility] vitamin C, 00:00: 23:59 elimination mouth 250 mg 00 :00 due to daily for tablet intestinal 60 days ostomy magnesium 2021- No Altered 800mg Q.5D Take 2 H arris oxide 01-21-30 bowel tablets by [facility] (MAG-OX) 00:00: 23:59 elimination mouth 2 400 mg 00 :00 due to times (241.3 mg intestinal daily for magnesium) ostomy 60 days tablet multivitami 2021- No Altered 1{tbl} QD Take 1 [place]ne n with 01-21-30 bowel tablet by [facility] folic acid 00:00: 23:59 elimination mouth (THERA) 400 00 :00 due to daily for mcg tablet intestinal 60 days ostomy ascorbic 2021- No Altered 250mg QD Take 1 Momin rris acid, 01-21-30 bowel tablet by [facility] vitamin C, 00:00: 23:59 elimination mouth 250 mg 00 :00 due to daily for tablet intestinal 60 days ostomy magnesium 2021- No Altered 800mg Q.5D Take 2 H arris oxide 01-21-30 bowel tablets by [employer] [facility] (MAG-OX) 00:00: 23:59 elimination mouth 2 400 [...] Momin rris acid, 01-21-30 bowel tablet by [facility] [facility] vitamin C, 00:00: 23:59 elimination mouth 250 mg 00 :00 due to daily for tablet intestinal 60 days ostomy magnesium 2021- No Altered 800mg Q.5D Take 2 H arris oxide 5- 07-30 bowel tablets by [facility] (MAG-OX) 00:00: 23:59 elimination mouth 2 400 mg 00 :00 due to times (241.3 mg intestinal daily for magnesium) ostomy 60 days tablet multivitami 2021- No Altered 1{tbl} QD Take 1 Lynne n with 5-23 03-30 bowel tablet by [facility] folic acid 00:00: 23:59 elimination mouth (THERA) 400 00 :00 due to daily for mcg tablet intestinal 60 days ostomy ascorbic 2021- No Altered 250mg QD Take 1 Momin rris acid, 01-21-30 bowel tablet by [facility] vitamin C, 00:00: 23:59 elimination mouth 250 mg 00 :00 due to daily for tablet intestinal 60 days ostomy magnesium 2021- No Altered 800mg Q.5D Take 2 H arris oxide 01-21-30 bowel tablets by [facility] [facility] (MAG-OX) 00:00: 23:59 elimination mouth 2 400 mg 00 :00 due to times (241.3 mg intestinal daily for magnesium) ostomy 60 days tablet multivitami 2021- No Altered 1{tbl} QD Take 1 Lynne n with 01-2130 bowel tablet by [facility] folic acid 00:00: 23:59 elimination mouth (THERA) 400 00 :00 due to daily for mcg tablet intestinal 60 days ostomy ascorbic 2021- No Altered 250mg QD Take 1 Momin rris acid, 01-21-30 bowel tablet by [facility] vitamin C, 00:00: 23:59 elimination mouth 250 mg 00 :00 due to daily for tablet intestinal 60 days ostomy magnesium 2021- No Altered 800mg Q.5D Take 2 H arris oxide -23 03-30 bowel tablets by [facility] [facility] (MAG-OX) 00:00: 23:59 elimination mouth 2 400 [...] Momin rris acid, 01-21 bowel tablet by [facility] vitamin C, 00:00: 23:59 elimination mouth 250 mg 00 :00 due to daily for tablet intestinal 60 days ostomy magnesium No Altered 800mg Q.5D Take 2 H arris oxide 01-21 bowel tablets by [facility] (MAG-OX) 00:00: 23:59 elimination mouth 2 400 mg 00 :00 due to times (241.3 mg intestinal daily for magnesium) ostomy 60 days tablet multivitami 2021- No Altered 1{tbl} QD Take 1 Lynne n with 01-21 bowel tablet by [facility] folic acid 00:00: 23:59 elimination mouth (THERA) [...] days ostomy loperamide 2021- No Altered 4mg Q.[id number] Take 2 Lynne (IMODIUM) 2 01-21-30 bowel [id number] capsules Health mg capsule 00:00: 00:00 elimination [...] days ostomy loperamide 2021- No Altered 4mg Q.02445588 Take 2 Lynne (IMODIUM) 2 01-21-30 bowel [id number] capsules Health mg capsule 00:00: 00:00 elimination [...] days ostomy loperamide 2021- No Altered 4mg Q.50479524 Take 2 Lynne (IMODIUM) 2 01-21-30 bowel [id number] capsules Health mg capsule 00:00: 00:00 elimination [...] days ostomy loperamide 2021- No Altered 4mg Q.65492066 Take 2 Lynne (IMODIUM) 2 01-21-30 bowel [id number] capsules Health mg capsule 00:00: 00:00 elimination [...] 60 days ostomy loperamide No Altered 4mg Q.07544589 Take 2 Lynne (IMODIUM) 2 01-21-30 bowel [id number] capsules Health mg capsule 00:00: 00:00 elimination [...] days ostomy loperamide 2021- No Altered 4mg Q.51490394 Take 2 Lynne (IMODIUM) 2 01-21-30 bowel [id number] capsules Health mg capsule 00:00: 00:00 elimination [...] days ostomy loperamide 2021- No Altered 4mg Q.96959872 Take 2 Lynne (IMODIUM) 2 01-21-30 bowel [id number] capsules Health mg capsule 00:00: 00:00 elimination [...] days ostomy loperamide 2021- No Altered 4mg Q.71726120 Take 2 Lynne (IMODIUM) 2 01-21-30 bowel [id number] capsules Health mg capsule 00:00: 00:00 elimination [...] days ostomy loperamide 2021- No Altered 4mg Q.51917110 Take 2 Lynne (IMODIUM) 2 01-21-30 bowel [id number] capsules Health mg capsule 00:00: 00:00 elimination [...] QD Take 1 Compa ris sulfate 325 5 06-30 bowel tablet by [facility] mg (65 mg 00:00: 00:00 elimination mouth iron) 00 :00 due to daily for tablet intestinal 60 days ostomy loperamide 2021- No Altered 4mg Q.19759155 Take 2 Lynne (IMODIUM) 2 --30 bowel [id number] capsules Health mg capsule 00:00: 00:00 elimination [...] days ostomy loperamide 2021- No Altered 4mg Q.17229999 Take 2 Lynne (IMODIUM) 2 01-21-30 bowel [id number] capsules Health mg capsule 00:00: 00:00 elimination [...] days ostomy loperamide 2021- No Altered 4mg Q.03603351 Take 2 Lynne (IMODIUM) 2 01-21-30 bowel [id number] capsules Health mg capsule 00:00: 00:00 elimination [...] days ostomy loperamide 2021- No Altered 4mg Q.00320500 Take 2 Lynne (IMODIUM) 2 01-21-30 bowel [id number] capsules Health mg capsule 00:00: 00:00 elimination [...] days ostomy loperamide 2021- No Altered 4mg Q.47289452 Take 2 Lynne (IMODIUM) 2 01-21-30 bowel [id number] capsules Health mg capsule 00:00: 00:00 elimination [...] days ostomy loperamide 2021- No Altered 4mg Q.88304408 Take 2 Lynne (IMODIUM) 2 --30 bowel [id number] capsules Health mg capsule 00:00: 00:00 elimination 3D by mouth 3 00 :00 due to times intestinal daily ostomy (before meals) for 30 days psyllium 2021- No Altered 1{packe Q.94264071 Take 1 Lynne (METAMUCIL) 01-21 bowel t} [id number] Packet by [facility] 6 gram PwPk 00:00: 00:00 elimination 3D mouth 3 00 :00 due to times intestinal daily ostomy (before meals) for 90 days psyllium 2021- No Altered 1{packe Q.12787440 Take 1 Lynne (METAMUCIL) 01-21 bowel t} [id number] Packet by [facility] [facility] 6 gram PwPk 00:00: 00:00 elimination 3D mouth 3 00 :00 due to times intestinal daily ostomy (before meals) for 90 days psyllium 2021- No Altered 1{packe Q.06387121 Take 1 Lynne (METAMUCIL) 01-21 bowel t} [id number] Packet by [facility] 6 gram PwPk 00:00: 00:00 elimination 3D mouth 3 00 :00 due to times intestinal daily ostomy (before meals) for 90 days psyllium 2021- No Altered 1{packe Q.88928955 Take 1 Lynne (METAMUCIL) 01-21 bowel t} [id number] Packet by [facility] 6 gram PwPk 00:00: 00:00 elimination 3D mouth 3 00 :00 due to times intestinal daily ostomy (before meals) for 90 days psyllium 2021- No Altered 1{packe Q.09226261 Take 1 [place]ne (METAMUCIL) 01-21 bowel t} [id number] Packet by [facility] 6 gram PwPk 00:00: 00:00 elimination 3D mouth 3 00 :00 due to times intestinal daily ostomy (before meals) for 90 days psyllium 2021- No Altered 1{packe Q.62960370 Take 1 [place]ne (METAMUCIL) 01-21 bowel t} [id number] Packet by [facility] 6 gram PwPk 00:00: 00:00 elimination 3D mouth 3 00 :00 due to times intestinal daily ostomy (before meals) for 90 days psyllium 2021- No Altered 1{packe Q.99373678 Take 1 [place]ne (METAMUCIL) 01-21 bowel t} [id number] Packet by [facility] 6 gram PwPk 00:00: 00:00 elimination 3D mouth 3 00 :00 due to times intestinal daily ostomy (before meals) for 90 days psyllium 2021- No Altered 1{packe Q.23679499 Take 1 [place]ne (METAMUCIL) 01-21 bowel t} [id number] Packet by [facility] 6 gram PwPk 00:00: 00:00 elimination 3D mouth 3 00 :00 due to times intestinal daily ostomy (before meals) for 90 days psyllium 2021- No Altered 1{packe Q.27104134 Take 1 [place]ne (METAMUCIL) 01-21 bowel t} [id number] Packet by [facility] 6 gram PwPk 00:00: 00:00 elimination 3D mouth 3 00 :00 due to times intestinal daily ostomy (before meals) for 90 days psyllium 2021- No Altered 1{packe Q.48291951 Take 1 Lnyne (METAMUCIL) 01-21 bowel t} [id number] Packet by [facility] 6 gram PwPk 00:00: 00:00 elimination 3D mouth 3 00 :00 due to times intestinal daily ostomy (before meals) for 90 days psyllium 2021- No Altered 1{packe Q.53174877 Take 1 [place] (METAMUCIL) 01-21 bowel t} [id number] Packet by [facility] 6 gram PwPk 00:00: 00:00 elimination 3D mouth 3 00 :00 due to times intestinal daily ostomy (before meals) for 90 days psyllium 2021- No Altered 1{packe Q.46761176 Take 1 [place]ne (METAMUCIL) 01-21 bowel t} [id number] Packet by [facility] 6 gram PwPk 00:00: 00:00 elimination 3D mouth 3 00 :00 due to times intestinal daily ostomy (before meals) for 90 days psyllium 2021- No Altered 1{packe Q.63268855 Take 1 [place]ne (METAMUCIL) 01-21 bowel t} [id number] Packet by [facility] 6 gram PwPk 00:00: 00:00 elimination 3D mouth 3 00 :00 due to times intestinal daily ostomy (before meals) for 90 days psyllium 2021- No Altered 1{packe Q.75371632 Take 1 Lynne (METAMUCIL) 01-21 bowel t} [id number] Packet by [facility] 6 gram PwPk 00:00: 00:00 elimination 3D mouth 3 00 :00 due to times intestinal daily ostomy (before meals) for 90 days psyllium 2021- No Altered 1{packe Q.14705163 Take 1 Lynne (METAMUCIL) 01-21 bowel t} [id number] Packet by [facility] 6 gram PwPk 00:00: 00:00 elimination 3D mouth 3 00 :00 due to times intestinal daily ostomy (before meals) for 90 days tamsulosin 2021- No Benign .4mg QD Take 1 Momin rris (FLOMAX) 01-12 prostatic capsule by [facility] [facility] 0.4 mg 00:00: 00:00 hyperplasia mouth capsule 00 :00 , daily. unspecified Start on whether 01/12/2022. lower urinary tract symptoms present tamsulosin 2021- No Benign .4mg QD Take 1 Momin rris (FLOMAX) 01-12 prostatic capsule by [facility] [facility] 0.4 mg 00:00: 00:00 hyperplasia mouth capsule 00 :00 , daily. unspecified Start on whether 01/12/2022. lower urinary tract symptoms present tamsulosin 2021- No Benign .4mg QD Take 1 Momin rris (FLOMAX) 01-12 prostatic capsule by [facility] [facility] 0.4 mg 00:00: 00:00 hyperplasia mouth capsule 00 :00 , daily. unspecified Start on whether 01/12/2022. lower urinary tract symptoms present tamsulosin 2021- No Benign .4mg QD Take 1 Momin rris (FLOMAX) 01-12 prostatic capsule by [facility] 0.4 mg 00:00: 00:00 hyperplasia mouth capsule [...] Momin rris (FLOMAX) 01-12- prostatic capsule by [facility] 0.4 mg 00:00: 00:00 hyperplasia mouth capsule 00 :00 , daily. unspecified Start on whether 01/12/2022. lower urinary tract symptoms present tamsulosin 2021-2021- No Benign .4mg QD Take 1 Momin rris (FLOMAX) 01-12- prostatic capsule by [facility] 0.4 mg 00:00: 00:00 hyperplasia mouth capsule 00 :00 , daily. unspecified Start on whether 01/12/2022. lower urinary tract symptoms present tamsulosin 2021-2021- No Benign .4mg QD Take 1 Momin rris (FLOMAX) 01-12-31 prostatic capsule by [facility] 0.4 mg 00:00: 00:00 [...] Momin rris (FLOMAX) 01-12-31 prostatic capsule by [facility] 0.4 mg 00:00: 00:00 [...] Momin rris (FLOMAX) 01-12 prostatic capsule by [facility] 0.4 mg 00:00: 00:00 hyperplasia mouth capsule 00 :00 , daily. unspecified Start on whether 01/12/2022. lower urinary tract symptoms present tamsulosin 2021-2021- No Benign .4mg QD Take 1 Momin rris (FLOMAX) 01-12 prostatic capsule by [facility] [facility] 0.4 mg 00:00: 00:00 hyperplasia mouth capsule [...] (IMODIUM) 2 - 05-21 stoma capsule by [facility] [facility] mg capsule 00:00: 00:00 mouth once 00 [...] 1000mL at 999 Uni vers (NS) bolus 09-12-20 mL/hr, ity of infusion 13:45: 16:05 1,000 [...] Sat Branch 09/07/21 at 2045, JOÃO iopamidol 2021-0 2- No [id number] 100mL 100 mL, Univers (ISOVUE 116 -16 Intravenou ity o f 370-500 mL) 02:21: [...] Indication s: acute pain ondansetron 0 Yes [id number] 4mg Take 1 Univers 4 mg 1-15 [...] Indication s: acute pain ondansetron 0 Yes [id number] 4mg Take 1 Univers 4 mg 1-15 [...] Indication s: acute pain ondansetron 2021-0 Yes [id number] 4mg Take 1 Univers 4 mg 1-15 [...] Indication s: acute pain ondansetron 2022-0 Yes [id number] 4mg Take 1 Univers 4 mg 1-15 [...] Indication s: acute pain ondansetron 2021-0 Yes [id number] 4mg Take 1 Univers 4 mg 1-15 [...] s: acute pain ondansetron 0 2021- No [id number] 4mg Take 1 Univers 4 mg 1-15 [...] Branch daily with meals. loperamide 2022-0 Yes [id number] 2mg Take 1 Univers 2 mg 1-12 [...] Branch daily with meals. loperamide 2022-0 Yes [id number] 2mg Take 1 Univers 2 mg 1-12 [...] Branch daily with meals. loperamide 2022-0 Yes [id number] 2mg Take 1 Univers 2 mg 1-12 [...] Branch daily with meals. loperamide 2022-0 Yes [id number] 2mg Take 1 Univers 2 mg 1-12 [...] Branch daily with meals. loperamide 2022-0 Yes [id number] 2mg Take 1 Univers 2 mg 1-12 [...] Branch daily with meals. loperamide 2022-0 Yes [id number] 2mg Take 1 Univers 2 mg 1-12 [...] Branch daily with meals. loperamide 2022-0 Yes [id number] 2mg Take 1 Univers 2 mg 1-12 capsule by ity of capsule 00:00: mouth (two) Medical times Branch daily. psyllium 2022-0 Yes 1{packe Take 1 Univ ers 3.4 gram 1-12 t} Packet by ity of packet 00:00: mouth (two) Medical times Branch daily. acetaminoph 2022-0 Yes 650mg Take 2 Uni vers en 325 mg 1-12 tablets by ity of tablet 00:00: mouth [place] every 6 Medical (six) Branch hours as needed for Pain (scale 1-3). ibuprofen 2022-0 Yes 600mg Take 1 Unive rs 600 mg 1-12 tablet by ity of tablet 00:00: mouth (three) Medical times Branch daily with meals. loperamide 2022-0 Yes [id number] 2mg Take 1 Univers 2 mg 1-12 capsule by ity of capsule 00:00: mouth (two) Medical times Branch daily. psyllium 2022-0 Yes 1{packe Take 1 Univ ers 3.4 gram 1-12 t} Packet by ity of packet 00:00: mouth (two) Medical times Branch daily. acetaminoph 2022-0 Yes 650mg Take 2 Uni vers en 325 mg 1-12 tablets by ity of tablet 00:00: mouth [place] every 6 Medical (six) Branch hours as needed for Pain (scale 1-3). ibuprofen 2022-0 Yes 600mg Take 1 Unive rs 600 mg 1-12 tablet by ity of tablet 00:00: mouth [place] (three) Medical times Branch daily with meals. loperamide 2022-0 Yes [id number] 2mg Take 1 Univers 2 mg 1-12 capsule by ity of capsule 00:00: mouth [place] (two) Medical times Branch daily. psyllium 2022-0 [...] ity of tablet 00:00: 00:00 mouth 3 00 :00 (three) Medical times Branch daily with meals. loperamide No [id number] 2mg Take 1 Univers 2 mg 09-04 capsule by ity of capsule 00:00: 00:00 mouth 2 [place] 00 :00 (two) Medical times Branch daily. psyllium 2021- No 1{packe Take 1 Uni vers 3.4 gram 09-04 t} Packet by ity o f packet 00:00: 00:00 mouth 2 [place] 00 :00 (two) Medical times Branch daily. vitamin 0 Yes 1000ug 1,000 mcg, Un piyush -09-03 Oral, ity of (CYANOCOBAL 20:00: DAILY, [place] N[place]) 00 First dose Medical tablet on [facility] 1,000 mcg 09/03/21 at 1400, Until Discontinu ed, Routine vitamin 2021- Yes 1000ug 1,000 mcg, Un piyush 09-03 Oral, ity of (CYANOCOBAL 20:00: DAILY, [place] 00 First dose Medical tablet on [facility] 1,000 mcg 09/03/21 at 1400, Until Discontinu ed, Routine ibuprofen 2021- No 600mg 600 mg, Uni vers (IBU) 09-03 Oral, TID ity of tablet 600 18:00: 17:59 MEALS, 15 [place] mg 00 :00 doses, Medical First dose Branch on Thu09/03/21 at 1200, Last dose on 09/08/21 at 0800, Routine ibuprofen No 600mg 600 mg, Uni vers (IBU) 09-03 Oral, TID ity of tablet 600 18:00: 17:59 MEALS, 15 [place] mg 00 :00 doses, Medical First dose Branch on Thu09/03/21 at 1200, Last dose on 09/08/21 at 0800, Routine traMADoL 2021- Yes 50mg 50 mg, Univers (ULTRAM) 09-03 Oral, ity of tablet 50 14:28: Q6HPRN, [place] mg 55 Starting Medical on [facility] Branch 09/03/21 at 0828, Until Discontinu ed, Routine, Pain (scale 4-6) traMADoL 2021-0 Yes 50mg 50 mg, Univers (ULTRAM) 09-03 Oral, ity of tablet 50 14:28: Q6HPRN, [place] mg 55 Starting Medical on Thu Branch 09/03/21 at 0828, Until Discontinu ed, Routine, Pain (scale 4-6) lidocaine-e 2021- No PRN, Unive rs pinephrine 09-03 Starting ity of (XYLOCAINE 14:15: 15:38 on Thu [place] WITH 00 :29 09/03/21 at Medical EPINEPHRINE 0815, Branch ) 1 Until Tu %-1:100,000 09/03/21 at injection 0938, Routine, Intra-op D5W 0.45% 2021- No IV Univers NaCl 09-03 Infusion, ity of (1/2NS) 1 L 09:45: 14:26 at 110 Javi as + KCL 20 00 :39 mL/hr, Medical mEq CONTINUOUS Branch , Starting on Thu09/03/21 at 0345, Until Thu09/03/21 at 0826, Routine sulfur 2021- No [id number] 5mL 5 [facility]02 Intravenou i ty of e microsphr 21:30: 21:30 s, ONCE, 1 [place] (LUMASON) 00 :00 dose, On Medica l injection 5 Mon Branch mL 09/02/21 at 1530, Routine
biology faculty member approving Restricted medication : CAMILA GREGORY NaCl 0.9% 2021- No 500mL at 999 Univ ers (NS) bolus 09-01-09 mL/hr, 500 it y of infusion 23:15: 22:18 mL, IV [place] 500 mL 00 :00 Piggyback, Medical ONCE, 1 Branch dose, On 09/01/21 at 1715, JOÃO NaCl 0.9% 2021- No 1000mL at 75 Univ ers (NS) IV 09-0109 mL/hr, IV ity of infusion 14:00: 16:07 Infusion, Javi as 1,000 mL 00 :36 CONTINUOUS Medic al , Starting Branch on Thu09/01/21 at 0800, Until Thu09/01/21 at 1007, Routine NaCl 0.9% 2022-0 2022- No 1000mL at 999 Uni vers (NS) bolus 1-08 01-08 mL/hr, ity of infusion 15:15: 15:11 1,000 mL, Javi as 1,000 mL 00 :00 IV Medical Infusion, [place] ONCE, 1 dose, On 08/31/21 at 0915, [...] First dose Medi mariusz 40 mg on [facility] Branch 08/31/21 at 0900, Until Discontinu ed, [...] 14:00: First dose [place] SINGLES) 00 on [facility] Medical 3.4 gram 08/31/21 at Branch [...] No at 125 Unive rs (NS) IV -08 01-08 mL/hr, IV ity of infusion 07:15: 08:03 Infusion, Javi as 00 :43 CONTINUOUS Medical , Starting Branch on 08/31/21 at 0115, Until 08/31/21 at 0203, Routine acetaminoph 2021-0 Yes 650mg 650 mg, Un piyush en 1-08 Oral, ity of (TYLENOL) 06:03: Q6HPRN, [place] tablet 650 36 Starting Medic al mg on Sat Branch 08/31/21 at 0003, Until Discontinu ed, Routine, Pain (scale 1-3) acetaminoph 2021-0 Yes 650mg 650 mg, Un piyush en 1-08 Oral, ity of (TYLENOL) 06:03: Q6HPRN, [place] tablet 650 36 Starting Medic al mg [...] No 8{puff} 8 Puff, U nivers (VENTOLIN) 07 01-07 Inhalation it y of inhaler 8 01:00: 00:20 , ONCE, 1 [place] Puff 00 :00 dose, On Medical [place] 08/29/21 Branch at 1900, JOÃO acetaminoph 2021-0 2021- No 1000mg 1,000 mg, Univers en 1-07 01-07 Oral, ity of (TYLENOL) 00:30: 00:20 ONCE, [...] 1830, Routine No known No Univers medications 08-29 ity of 19:35: [address] Branch NaCl 0.9% 2020-08 Yes 10mL 10 mL, Univer s (NS) 2-12 Slow IV ity of injection 19:13: Push, PRN, [place] 10 mL 37 Starting Medical on [place] Branch 08/04/21 at 1313, Until Discontinu ed, Routine, line maintenanc e lidocaine 2020-08 Yes 5mL 5 mL, Univers 1% (PF) 212 Subcutaneo ity of (XYLOCAINE) 19:13: us, PRN, [place] injection 5 37 Starting Medi mariusz mL on [place] Branch 08/04/21 at 1313, Until Discontinu ed, Routine, Local anesthesia dextrose 5% 2020-08 Yes IV Univer s and 0.45% 2-12 Infusion, ity o f NaCl with 16:00: CONTINUOUS [place] KCl 40 mEq 00 , Starting Med ical 1,000 mL IV on [place] Branch Solution 08/04/21 at 1000, Until Discontinu ed, 1,000 mL, at 125 mL/hr NaCl 0.9% 2020-08 No 1000mL at 999 [...] Medical mg last Branch modificati on) on [facility] 08/01/21 at 0730, Until Discontinu ed, Routine magnesium 2020-08 No 2g 2 g, IV Univ ers sulfate in 10-02 Piggyback, it y of water 2 13:00: 14:28 ONCE, 1 [place] gram/50 mL 00 :00 dose, On Medic al (4 %) [facility] Branch infusion 2 08/01/21 at g 0700, Routine diphenoxyla 2020-08 No 1{tbl} 1 tablet, Univers te-atropine 10-01 Oral, BID, i ty of (LOMOTIL) 15:30: 13:19 First dose [place] 2.5-0.025 00 :28 on Wed Medical mg tablet 1 07/31/21 at Br anch tablet 0930, Until Discontinu ed, Routine iopamidol 2020-08 No [id number] 100mL 100 mL, Univers (ISOVUE 10-01 Intravenou [...] Medical (after Branch last modificati on) on [facility] 07/30/21 at 0900, Until Discontinu ed, Routine pantoprazol 2020-08 No 40mg 40 mg, Uni vers e 09-30 Oral, ity of (PROTONIX) 15:00: 13:40 DAILY, [place] EC tablet 00 :20 First dose Medi mariusz 40 mg on [facility] 07/30/21 at 0900, Until Discontinu ed, Routine loperamide 2020-08 No 4mg 4 mg, Unive rs (IMODIUM 09-3009 Oral, TID, ity of A-D) 14:00: 13:19 First dose [place] capsule 4 00 :28 on [facility] Medical mg 07/30/21 at Branch 0800, Until Discontinu ed, Routine psyllium 2020-08- No 1{packe 1 Packet, Univers (METAMUCIL 09-30 t} Oral, TID, it y of FIBER 14:00: 13:19 First dose [place] SINGLES) 00 :28 on [facility] Medical 3.4 gram 07/30/21 at [facility] h packet 1 0800, Packet [...] IV Push, ity of (PF)) 06:10: Administer [place] injection 4 46 over 15 Medic al [...] 650 40 Starting Medic al mg on Tue Branch 07/30/21 at 0010, Until Discontinu ed, Routine, Pain (scale 1-3) morpHINE 2020-08- No 4mg 4 mg, Slow Un piyush injection 4 2-07-30 IV Push, ity of mg 03:30: 02:55 ONCE, 1 [place] 00 :00 dose, On Medical Mon Branch 07/29/21 at 2130, STAT psyllium 2020-08 Yes [id number] 1{packe Take 1 Univers 3.4 gram 2-03 t} Packet by ity of packet 00:00: mouth 3 00 (three) Medical times Branch daily. loperamide 2020-08 Yes [id number] 4mg Take 2 Univers 2 mg 2-03 capsules ity of capsule 00:00: by mouth 3 [place] s (three) Medical times Branch daily. pantoprazol 2020-08 Yes [id number] 40mg Take 1 Univers e 40 mg EC 2-03 tablet by ity of tablet 00:00: mouth 00 daily. Medical Branch psyllium 2020-08 Yes [id number] 1{packe Take 1 Univers 3.4 gram 2-03 t} Packet by ity of packet 00:00: mouth 3 (three) Medical times Branch daily. loperamide 2020-08 Yes [id number] 4mg Take 2 Univers 2 mg 2-03 capsules ity of capsule 00:00: by mouth 3 [place] (three) Medical times Branch daily. pantoprazol 2020-08 Yes [id number] 40mg Take 1 Univers e 40 mg EC 2-03 tablet by ity of tablet 00:00: mouth 00 daily. Medical Branch psyllium 2020-08- No [id number] 1{packe Take 1 Univers 3.4 gram 2-03 12-13 t} Packet by ity o f packet 00:00: 00:00 mouth 3 [place] 00 :00 (three) Medical times Branch daily. loperamide 2020-08- No [id number] 4mg Take 2 Univers 2 mg 2-03 12-13 capsules ity of capsule 00:00: 00:00 by mouth 3 [place] as 00 :00 (three) Medical times Branch daily. pantoprazol 2020-08- No [id number] 40mg Take 1 Univers e 40 mg EC 2-08-05 tablet by ity of tablet 00:00: 00:00 mouth [place] 00 :00 daily. Medical Branch psyllium 2020-08- No [id number] 1{packe Take 1 Univers 3.4 gram 2-07-26 t} Packet by ity o f packet 00:00: 00:00 mouth 3 [place] 00 :00 (three) Medical times Branch daily for 90 days. loperamide 2020-08- No [id number] 4mg Take 2 Univers 2 mg 2-11 02- capsules ity of capsule 00:00: 00:00 by mouth 3 [place] 00 :00 (three) Medical times Branch daily for 90 days. pantoprazol 2020-08- No [id number] 40mg Take 1 Univers e 40 mg EC 207-26 tablet by ity of tablet 00:00: 00:00 mouth [place] 00 :00 daily for Medical 90 days. Branch psyllium 2020-08- No [id number] 1{packe Take 1 Univers 3.4 gram 2-07-26 t} Packet by ity o f packet 00:00: 00:00 mouth 3 [place] 00 :00 (three) Medical times Branch daily. pantoprazol 2020-08- No [id number] 40mg Take 1 Univers e 40 mg EC 2-07-26 tablet by ity of tablet 00:00: 00:00 mouth [place] 00 :00 daily. Medical Branch loperamide 2020-08- No [id number] 4mg Take 2 Univers 2 mg 2-03 - capsules ity of capsule 00:00: 00:00 by mouth 3 [place] 00 :00 (three) Medical times Branch daily. psyllium 2020-08- No [id number] 1{packe Take 1 Univers 3.4 gram 2-03 07-26 t} Packet by ity o f packet 00:00: 00:00 mouth 3 [place] 00 :00 (three) Medical times Branch daily. loperamide 2020-08- No [id number] 4mg Take 2 Univers 2 mg 2-03 -03 capsules ity of capsule 00:00: 00:00 by mouth 3 [place] 00 :00 (three) Medical times Branch daily. pantoprazol 2020-08- No [id number] 40mg Take 1 Univers e 40 mg [...] packet 1 modificati Packet on) on [facility] 07/25/21 at 0800, Until Discontinu ed, Routine [...] at 999 Uni vers (NS) IV 09-24 12- mL/hr, IV ity of infusion 22:45: 21:43 [...] Yes 4mg 4 mg, Univer s (IMODIUM 2-01 Oral, TID, ity o f A-D) 14:00: [...] 1-30 Oral, ity of (TYLENOL) 07:31: Q6HPRN, [place] tablet 650 37 Starting Medic al mg on Branch 07/23/21 at 0131, Until Discontinu ed, Routine, Pain (scale 1-3) NaCl 0.9% 2020-08- No 1000mL at 999 Uni vers (NS) bolus 1-30 11-30 mL/hr, ity of infusion 06:46: 07:00 1,000 mL, [place] 1,000 mL 00 :00 IV Medical Piggyback, [place] ONCE, 1 dose, On Thu07/23/21 at 0100, STAT heparin 2020-08 Yes 5000U 5,000 Univers (porcine) 0-09 Units, ity of injection 22:00: [place]cutaneo [place] 5,000 Units 00 us, Q8H, Medi mariusz First dose Branch on [facility] 06/01/21 at 1700, Until Discontinu ed, Routine pantoprazol 2020-08 Yes 40mg 40 mg, Univ ers e 0-09 Oral, BID, ity of (PROTONIX) 14:45: First dose [place] EC tablet 00 on [facility] Medical 40 mg 06/01/21 at Branch 0945, Until Discontinu ed, Routine psyllium 2020-08 Yes 1{packe 1 Packet, U nivers (METAMUCIL 0-09 t} Oral, ity of FIBER 14:45: DAILY, [place] SINGLES) 00 First dose Medic al 3.4 gram on Sat Branch packet 1 06/01/21 at Packet 0945, Until Discontinu ed, Routine traMADoL 2020-08 Yes 50mg 50 mg, Univers (ULTRAM) 0-09 Oral, ity of tablet 50 14:39: Q6HPRN, [place] mg 34 Starting Medical on [facility] Branch 06/01/21 at 0939, Until Discontinu ed, Routine, Pain (scale 4-6) HYDROcodone 2020-08 Yes 1{tbl} 1 tablet, Univers -acetaminop 0-09 Oral, ity of hen (NORCO 14:39: Q6HPRN, [place] 5) 5-325 mg 16 Starting Medi mariusz tablet 1 on [facility] Branch tablet 06/01/21 at 0939, Until Discontinu ed, Routine, Pain (scale 7-10) ondansetron 2020-08 Yes 4mg 4 mg, Slow Univers (ZOFRAN 0-09 IV Push, ity of (PF)) 14:38: Q6HPRN, [place] injection 4 58 Starting Medi mariusz mg on [facility] Branch 06/01/21 at 0938, Until Discontinu ed, Routine, Nausea and Vomiting (N/V) acetaminoph 2020-08 Yes 650mg 650 mg, Un piyush en 0-09 Oral, ity of (TYLENOL) 14:36: Q6HPRN, [place] tablet 650 07 Starting Medic al mg on [facility] Branch 06/01/21 at 0936, Until Discontinu [...] 1,000 mL 00 :00 IV Medical Piggyback, [place] ONCE, 1 dose, On 10/8/21 at 2045, STAT iopamidol 2020-08- No [id number] 100mL 100 mL, Univers (ISOVUE 0- 10-09 Intravenou ity o f 370-500 mL) 00:30: 00:30 s, ONCE, 1 [place] injection 00 :00 dose, On Medica l 100 mL Fri Branch 05/31/21 at 1930, Routine morpHINE 2020-08- No 4mg 4 mg, Slow Un [place] injection 4 0 10-08 IV Push, ity of mg 23:30: [...] On Thu05/31/21 at 1830, STAT psyllium Yes [id number] 1{packe Take 1 Univers 3.4 gram 9-29 t} Packet by ity of packet 00:00: mouth [place] 00 daily. Medical Branch psyllium Yes [id number] 1{packe Take 1 Univers 3.4 gram 9-29 t} Packet by ity of packet 00:00: mouth [place] 00 daily. Medical Branch psyllium 0 Yes [id number] 1{packe Take 1 Univers 3.4 gram 9-29 t} Packet by ity of packet 00:00: mouth [place] 00 daily. Medical Branch psyllium 0 Yes [id number] 1{packe Take 1 Univers 3.4 gram 9-29 t} Packet by ity of packet 00:00: mouth [place] 00 daily. Medical Branch psyllium Yes [id number] 1{packe Take 1 Univers 3.4 gram 9-29 t} Packet by ity of packet 00:00: mouth [place] 00 daily. Medical Branch psyllium 2020- No [id number] 1{packe Take 1 Univers 3.4 gram 05-22 12-13 t} Packet by ity o f [...] IV Push, ity of (PF)) 00:15: Q6HPRN, [place] injection 4 13 Starting Medi mariusz mg on Thu Branch 05/20/21 at 191, Until Discontinu ed, Routine, Nausea and Vomiting (N/V) HYDROcodone Yes 1{tbl} 1 tablet, Univers -acetaminop 05-21 Oral, ity of hen (NORCO) 00:15: Q6HPRN, [place] 10-325 mg 10 Starting Medica l tablet 1 on Thu tablet 05/20/21 at 191, Until Discontinu ed, Routine, Pain (scale 7-10) traMADoL 2020- No 50mg 50 mg, Univer s (ULTRAM) 05-21 09-30 Oral, ity of tablet 50 00:15: 00:14 Q8HPRN, [place] mg 07 :07 Starting Medical on Thu Branch 05/20/21 at 1915, Until Thu05/22/21 at 1914, Routine, Pain (scale 4-6) acetaminoph Yes 650mg 650 mg, Un piyush en 05-21 Oral, ity of (TYLENOL) 00:15: Q6HPRN, [place] tablet 650 01 Starting Medic al mg on Thu Branch 05/20/21 at 191, Until Discontinu ed, Routine, Pain (scale 1-3) [...] Routine lactated 2020- No 2000mL at 999 [facility] ers ringers IV 05-20 mL/hr, ity of infusion 22:02: 22:36 2,000 mL, [place] 2,000 mL 00 :00 Intravenou Medic al s, ONCE, 1 Branch dose, On Thu05/20/21 at 1715, JOÃO ondansetron 2020- No 4mg 4 mg, Slow Univers (ZOFRAN 05-20 IV Push, ity of (PF)) 21:00: 20:15 ONCE, 1 [place] injection 4 00 :00 dose, On Medi mariusz mg [facility] 05/20/21 at 1600, JOÃO morpHINE 2020- No 4mg 4 mg, Slow Un piyush injection 4 05-20 IV Push, ity of mg 21:00: 20:15 ONCE, 1 [place] 00 :00 dose, On Medical Mon Branch 05/20/21 at 1600, STAT NaCl 0.9% 2020- No 500mL at 999 Univ ers (NS) bolus 05-20 mL/hr, 500 it y of infusion 21:00: 21:00 mL, IV [place] 500 mL 00 :00 Piggyback, Medical ONCE, 1 Branch dose, On Thu05/20/21 at 1600, STAT pantoprazol Yes 40mg 40 mg, Univ ers e 05-10 Oral, BID, ity of (PROTONIX) 01:00: First dose [place] EC tablet 00 on [place] [facility] 40 mg 05/09/21 at Branch 2000, Until Discontinu ed, Routine pantoprazol Yes 40mg 40 mg, Univ ers e 05-10 Oral, BID, ity of (PROTONIX) 01:00: First dose [place] EC tablet 00 on [place] [facility] 40 mg 05/09/21 at Branch 2000, Until Discontinu ed, Routine pantoprazol 2020- No [id number] 40mg Take 1 Univers e 40 mg EC 9-16 11-16 tablet by ity of tablet 00:00: 05:59 mouth 2 [place] 00 :00 (two) Medical times Branch daily pantoprazol 2020- No [id number] 40mg Take 1 Univers e 40 mg EC 9-16 11-16 tablet by ity of tablet 00:00: 05:59 mouth 2 [place] 00 :00 (two) Medical times Branch daily pantoprazol 2020- No [id number] 40mg Take 1 Univers e 40 mg EC 9-16 11-16 tablet by ity of tablet 00:00: 05:59 mouth 2 [place] 00 :00 (two) Medical times Branch daily pantoprazol 2020- No [id number] 40mg Take 1 Univers e 40 mg EC 9-16 -16 tablet by ity of tablet 00:00: 05:59 mouth 2 [place] 00 :00 (two) Medical times Branch daily pantoprazol 2020- No [id number] 40mg Take 1 Univers e 40 mg EC 9-16 11-16 tablet by ity of tablet 00:00: 05:59 mouth 2 [place] 00 :00 (two) Medical times Branch daily pantoprazol 2020- No [id number] 40mg Take 1 Univers e 40 mg EC 9-16 -16 tablet by ity of tablet 00:00: 05:59 mouth 2 [place] 00 :00 (two) Medical times Branch daily pantoprazol 2020- No [id number] 40mg Take 1 Univers e 40 mg EC 9-16 11-16 tablet by ity of tablet 00:00: 05:59 mouth 2 [place] 00 :00 (two) Medical times Branch daily enoxaparin Yes 40mg 40 mg, Unive rs (LOVENOX) 9- Subcutaneo ity of injection 16:15: us, Q24H, [...] Thu05/07/21 at 2330, Until Discontinu ed pantoprazol No [...] ed, Routine, Nausea and Vomiting (N/V) ondansetron 0 Yes 4mg 4 mg, Slow [...] Q4HPRN, [place] 32 :32 Starting Medical on [facility] 05/07/21 at 2316, Until Thu05/08/21 at 2315, Routine, Pain (scale 7-10) morpHINE 0 2020- No 4mg 4 mg, Slow Un pi[place] injection 4 05-08 IV Push, ity of mg 04:16: 04:15 Q4HPRN, [place] 32 :32 Starting Medical on [facility] 05/07/21 at 2316, Until Thu05/08/21 at 2315, Routine, Pain (scale 7-10) diazePAM 2020- No 5mg 5 mg, Slow Un pi[place]ush (VALIUM) 05-08 IV Push, ity of injection 5 02:45: 02:49 ONCE, 1 [place] mg 00 :00 dose, On [facility] 05/07/21 at 2145, STAT diazePAM 2020- No 5mg 5 mg, Slow Un piyush (VALIUM) 05-08 IV Push, ity of injection 5 02:45: 02:49 ONCE, 1 [place] mg 00 :00 dose, On [facility] 05/07/21 at 2145, STAT iopamidol 2020-2020- No [id number] 100mL 100 mL, Univers (ISOVUE 05-08 Intravenou ity o f 370-500 mL) 02:15: 01:08 s, ONCE, 1 [place] injection 00 :00 dose, On Medica l 100 mL [facility] 05/07/21 at 2115, Routine iopamidol 2020-0 2020- No [id number] 100mL 100 mL, Univers (ISOVUE 05-08 Intravenou [...] Tue Branch 05/07/21 at 2044, JOÃO ondansetron 2020-0 2020- No 4mg 4 mg, Slow Univers (ZOFRAN 05-0815 IV Push, ity of (PF)) 01:45: 00:47 ONCE, 1 [place] injection 4 00 :00 dose, On Medi mariusz mg [facility] Branch 05/07/21 at 2044, JOÃO morpHINE 2020-0 2020- No 4mg 4 mg, Slow Un [place] injection 4 05-0815 IV Push, ity of mg 01:45: 00:48 ONCE, 1 [place] 00 :00 dose, On Medical [facility] Branch 05/07/21 at 2044, JOÃO ondansetron 2020-2020- No 4mg 4 mg, Slow Univers (ZOFRAN 05-08 IV Push, ity of (PF)) 01:45: 00:47 ONCE, 1 [place] injection 4 00 :00 dose, On Medi mariusz mg [facility] 05/07/21 at 2044, JOÃO flu vaccine 2020-2020- No .5mL 0.5 mL, Un piyush 6 months 08-24 Intramuscu ity of and up (PF) 17:30: 18:09 lar, ONCE, [place] (FLUZONE 00 :00 1 dose, Medical QUAD 08/24/20 Branch at 1130, (PF)) Routine syringe 0.5 mL sulfamethox 2020-0 2020- No 1{tbl} 1 tablet, [facility] azole-trime 08-24 Oral, BID, i ty of thoprim 02:00: 13:59 7 doses, [place] (BACTRIM 00 :00 First dose Medic al DS) 800-160 on [place] Branch mg per 08/23/20 tablet 1 at 1999, tablet Last dose on 08/26/20 at 1999, JOÃO
Re ason for Anti-Infec tive: Empiric Therapy for Suspected Infection< br>Empiric Therapy Site: Skin / Soft tissue
Duration of therapy: 72 hours sulfamethox 2020- No [id number] 1{tbl} Take 1 Univers azole-trime 08-24 tablet by it y of 00:00: 05:59 mouth 2 [place] 800-160 mg 00 :00 (two) Medical per tablet times Branch daily for 7 days. enoxaparin 2019-08 Yes 40mg 40 mg, Unive rs (LOVENOX) 2- Subcutaneo ity of injection 21:30: us, Q24H, [place] as 40 mg 00 First dose Medical on [facility] Branch 08/23/20 at 1530, Until Discontinu ed, Routine docusate 2019-08 Yes 100mg 100 mg, Unive rs (COLACE) 2- Oral, ity of capsule 100 15:00: DAILY, [place] mg 00 First dose Medical on [facility] Branch 08/23/20 at 0900, Until Discontinu ed, Routine psyllium 2019-08 Yes 3{packe 3 Packet, U nivers (METAMUCIL t} Oral, TID, ity of FIBER 14:00: First dose [place] SINGLES) 00 on [facility] Medical 3.4 gram 08/23/20 Branch packet 3 at 0800, Packet Until Discontinu ed, Routine heparin 2019-08 2020- No 5000U 5,000 Univers (porcine) 08-23 Units, ity of injection 14:00: 20:18 Subcutaneo [place] 5,000 Units 00 :30 us, Q12H, Med ical First dose Branch on [facility] 08/23/20 at 0800, Until Discontinu ed, Routine NaCl 0.9% 2019-08 Yes 1000mL at 75 Unive rs (NS) IV 2-31 mL/hr, IV ity of infusion 04:45: Infusion, [place] 1,000 mL 00 CONTINUOUS Medic al , Starting Branch Thu08/22/20 at 2245, Until Discontinu ed, Routine melatonin 2019-08 Yes 6mg 6 mg, Univers (MELATIN) Oral, PRN ity o f tablet 6 mg 03:12: - SEE [place] 40 [facility] Medical NS, 1 Branch dose, Starting Thu08/22/20 at 2112, Until Discontinu ed, Routine, Insomnia, HS labetaloL 2019-08 Yes 10mg 10 mg, Univer s (NORMODYNE) 231 Slow IV ity o f injection 03:12: Push, [place] 10 mg 33 Q6HPRN, Medical Starting Branch 08/22/20 at 2111, Until Discontinu ed, Routine, hypertensi on ondansetron 2019-08 Yes 4mg 4 mg, Slow Univers (ZOFRAN 2-31 IV Push, ity of (PF)) 03:12: Q6HPRN, [place] injection 4 08 Starting Medi mariusz mg Wed Branch 08/22/20 at 2111, Until Discontinu ed, Routine, Nausea and Vomiting (N/V) acetaminoph 2019-08 Yes 650mg 650 mg, Un piyush en 231 Oral, ity of (TYLENOL) 03:11: Q6HPRN, [place] tablet 650 56 Starting Medic al mg Wed Branch 08/22/20 at 2110, Until Discontinu ed, Routine, Pain (scale 1-3) NaCl 0.9% 2019-08- No 1000mL at 999 Uni vers (NS) bolus 08-23 mL/hr, ity of infusion 21:45: 00:21 1,000 mL, [place] 1,000 mL 00 :00 IV Medical Infusion, Branch ONCE, 1 dose, [facility] 08/22/20 at 1545, JOÃO iohexol 2019-08- No 100mL 100 mL, Unive rs (OMNIPAQUE 09-09 Intravenou it y of 350 00:30: 00:14 s, ONCE, 1 [place] BULK-100 00 :00 dose, Mon Medica l mL) 07/09/20 Branch injection at 1830, 100 mL Routine cefTRIAXone 2019-08- No 1000mg 1,000 mg, Univers (ROCEPHIN) 09-08 IV ity of 1,000 mg in 23:30: 00:58 Piggyback, [place] NaCl 0.9% 00 :00 ONCE, 1 Medical [...] 07/09/20 at 1645, JOÃO amoxicillin 2019-08 Yes [id number] 1{tbl} Take 1 Univers -clavulanat 1-16 tablet by ity of e 875-125 00:00: mouth [place] mg per 00 every 12 Medical tablet (twelve) Branch hours. amoxicillin 2019-08- No [id number] 1{tbl} Take 1 Univers -clavulanat 1-16 01-01 tablet by it y of e 875-125 [...] of Therapy: 7 days ibuprofen 2019-08 Yes [id number] 800mg Take 1 U nivers 800 mg 0-08 tablet by ity of tablet 00:00: mouth [place] 00 every 6 Medical (six) Branch hours as needed for Pain (scale 4-6). loperamide 2020-1 Yes [id number] 4mg Take 2 U nivers 2 mg 0-08 capsules ity of capsule 00:00: by mouth 4 [place] 00 (four) Medical times Branch daily. diphenoxyla 2020-1 Yes [id number] 1{tbl} Take 1 Univers te-atropine 0-08 tablet by ity of 2.5-0.025 00:00: mouth [place] mg tablet 00 every 8 Medical (eight) Branch hours. psyllium 2020-1 Yes [id number] 3{packe Take 3 Univers 3.4 gram 0-08 t} Packets by ity o f packet 00:00: mouth 3 [place] 00 (three) Medical times Branch daily. psyllium 2020-1 Yes [id number] 3{packe Take 3 Univers 3.4 gram 0-08 t} Packets by ity o f packet 00:00: mouth 3 [place] 00 (three) Medical times Branch daily. diphenoxyla 2020-1 Yes [id number] 1{tbl} Take 1 Univers te-atropine 0-08 tablet by ity of 2.5-0.025 00:00: mouth [place] mg tablet 00 every 8 Medical (eight) Branch hours. loperamide 2020-1 Yes [id number] 4mg Take 2 U nivers 2 mg 0-08 capsules ity of capsule 00:00: by mouth 4 [place] 00 (four) Medical times Branch daily. ibuprofen 2020-1 Yes [id number] 800mg Take 1 U nivers 800 mg 0-08 tablet by ity of tablet 00:00: mouth [place] 00 every 6 Medical (six) Branch hours as needed for Pain (scale 4-6). psyllium 2020-1 Yes [id number] 3{packe Take 3 Univers 3.4 gram 0-08 t} Packets by ity o f packet 00:00: mouth 3 [place] 00 (three) Medical times Branch daily. diphenoxyla 2020-1 Yes [id number] 1{tbl} Take 1 Univers te-atropine 0-08 tablet by ity of 2.5-0.025 00:00: mouth [place] mg tablet 00 every 8 Medical (eight) Branch hours. loperamide 2020-1 Yes [id number] 4mg Take 2 U nivers 2 mg 0-08 capsules ity of capsule 00:00: by mouth 4 [place] 00 (four) Medical times Branch daily. ibuprofen 2020- Yes [id number] 800mg Take 1 U nivers 800 mg 0-08 tablet by ity of tablet 00:00: mouth [place] 00 every 6 Medical (six) Branch hours as needed for Pain (scale 4-6). psyllium 2020-1 Yes [id number] 3{packe Take 3 Univers 3.4 gram 0-08 t} Packets by ity o f packet 00:00: mouth 3 [place] (three) Medical times Branch daily. diphenoxyla 2020- Yes [id number] 1{tbl} Take 1 Univers te-atropine 0-08 tablet by ity of 2.5-0.025 00:00: mouth [place] mg tablet 00 every 8 Medical (eight) Branch hours. loperamide 2020- Yes [id number] 4mg Take 2 U nivers 2 mg 0-08 capsules ity of capsule 00:00: by mouth 4 [place] 00 (four) Medical times Branch daily. ibuprofen 2020- Yes [id number] 800mg Take 1 U nivers 800 mg 0-08 tablet by ity of tablet 00:00: mouth [place] 00 every 6 Medical (six) Branch hours as needed for Pain (scale 4-6). psyllium 2020- Yes [id number] 3{packe Take 3 Univers 3.4 gram 0-08 t} Packets by ity o f packet 00:00: mouth 3 [place] (three) Medical times Branch daily. diphenoxyla 2020-1 Yes [id number] 1{tbl} Take 1 Univers te-atropine 0-08 tablet by ity of 2.5-0.025 00:00: mouth [place] mg tablet 00 every 8 Medical (eight) Branch hours. loperamide 2020- Yes [id number] 4mg Take 2 U nivers 2 mg 0-08 capsules ity of capsule 00:00: by mouth 4 [place] 00 (four) Medical times Branch daily. ibuprofen 2020- Yes [id number] 800mg Take 1 U nivers 800 mg 0-08 tablet by ity of tablet 00:00: mouth [place] 00 every 6 Medical (six) Branch hours as needed for Pain (scale 4-6). psyllium 2020-1 Yes [id number] 3{packe Take 3 Univers 3.4 gram 0-08 t} Packets by ity o f packet 00:00: mouth 3 [place] 00 (three) Medical times Branch daily. diphenoxyla 2020-1 Yes [id number] 1{tbl} Take 1 Univers te-atropine 0-08 tablet by ity of 2.5-0.025 00:00: mouth [place] mg tablet 00 every 8 Medical (eight) Branch hours. loperamide 2020-1 Yes [id number] 4mg Take 2 U nivers 2 mg 0-08 capsules ity of capsule 00:00: by mouth 4 [place] 00 (four) Medical times Branch daily. ibuprofen 2020- Yes [id number] 800mg Take 1 U nivers 800 mg 0-08 tablet by ity of tablet 00:00: mouth [place] 00 every 6 Medical (six) Branch hours as needed for Pain (scale 4-6). psyllium 2020-1 Yes [id number] 3{packe Take 3 Univers 3.4 gram 0-08 t} Packets by ity o f packet 00:00: mouth 3 [place] 00 (three) Medical times Branch daily. diphenoxyla 2020-1 Yes [id number] 1{tbl} Take 1 Univers te-atropine 0-08 tablet by ity of 2.5-0.025 00:00: mouth [place] mg tablet 00 every 8 Medical (eight) Branch hours. loperamide 2020-1 Yes [id number] 4mg Take 2 U nivers 2 mg 0-08 capsules ity of capsule 00:00: by mouth 4 [place] 00 (four) Medical times Branch daily. ibuprofen 2020-1 Yes [id number] 800mg Take 1 U nivers 800 mg 0-08 tablet by ity of tablet 00:00: mouth [place] 00 every 6 Medical (six) Branch hours as needed for Pain (scale 4-6). psyllium 2020-1 Yes [id number] 3{packe Take 3 Univers 3.4 gram 0-08 t} Packets by ity o f packet 00:00: mouth 3 [place] 00 (three) Medical times Branch daily. diphenoxyla 2020-1 Yes [id number] 1{tbl} Take 1 Univers te-atropine 0-08 tablet by ity of 2.5-0.025 00:00: mouth [place] mg tablet 00 every 8 Medical (eight) Branch hours. loperamide 2020-1 Yes [id number] 4mg Take 2 U nivers 2 mg 0-08 capsules ity of capsule 00:00: by mouth 4 [place] 00 (four) Medical times Branch daily. ibuprofen 2020-1 Yes [id number] 800mg Take 1 U nivers 800 mg 0-08 tablet by ity of tablet 00:00: mouth [place] 00 every 6 Medical (six) Branch hours as needed for Pain (scale 4-6). psyllium 2020-1 Yes [id number] 3{packe Take 3 Univers 3.4 gram 0-08 t} Packets by ity o f packet 00:00: mouth 3 [place] 00 (three) Medical times Branch daily. diphenoxyla 2020- Yes [id number] 1{tbl} Take 1 Univers te-atropine 0-08 tablet by ity of 2.5-0.025 00:00: mouth [place] mg tablet 00 every 8 Medical (eight) Branch hours. loperamide 2020- Yes [id number] 4mg Take 2 U nivers 2 mg 0-08 capsules ity of capsule 00:00: by mouth 4 [place] 00 (four) Medical times Branch daily. ibuprofen 2020- Yes [id number] 800mg Take 1 U nivers 800 mg 0-08 tablet by ity of tablet 00:00: mouth [place] 00 every 6 Medical (six) Branch hours as needed for Pain (scale 4-6). psyllium 2020-1 Yes [id number] 3{packe Take 3 Univers 3.4 gram 0-08 t} Packets by ity o f packet 00:00: mouth 3 [place] 00 (three) Medical times Branch daily. diphenoxyla 2020-1 Yes [id number] 1{tbl} Take 1 Univers te-atropine 0-08 tablet by ity of 2.5-0.025 00:00: mouth [place] mg tablet 00 every 8 Medical (eight) Branch hours. loperamide 2020-1 Yes [id number] 4mg Take 2 U nivers 2 mg 0-08 capsules ity of capsule 00:00: by mouth 4 [place] 00 (four) Medical times Branch daily. ibuprofen 2020-1 Yes [id number] 800mg Take 1 U nivers 800 mg 0-08 tablet by ity of tablet 00:00: mouth [place] 00 every 6 Medical (six) Branch hours as needed for Pain (scale 4-6). psyllium 2020-1 Yes [id number] 3{packe Take 3 Univers 3.4 gram 0-08 t} Packets by ity o f packet 00:00: mouth 3 [place] 00 (three) Medical times Branch daily. diphenoxyla 2020- Yes [id number] 1{tbl} Take 1 Univers te-atropine 0-08 tablet by ity of 2.5-0.025 00:00: mouth [place] mg tablet 00 every 8 Medical (eight) Branch hours. loperamide 2020- Yes [id number] 4mg Take 2 U nivers 2 mg 0-08 capsules ity of capsule 00:00: by mouth 4 [place] 00 (four) Medical times Branch daily. ibuprofen 2019- Yes [id number] 800mg Take 1 U nivers 800 mg 0-08 tablet by ity of tablet 00:00: mouth [place] 00 every 6 Medical (six) Branch hours as needed for Pain (scale 4-6). psyllium 2020- Yes [id number] 3{packe Take 3 Univers 3.4 gram 0-08 t} Packets by ity o f packet 00:00: mouth 3 [place] 00 (three) Medical times Branch daily. diphenoxyla 2019- Yes [id number] 1{tbl} Take 1 Univers te-atropine 0-08 tablet by ity of 2.5-0.025 00:00: mouth [place] mg tablet 00 every 8 Medical (eight) Branch hours. loperamide 2019- Yes [id number] 4mg Take 2 U nivers 2 mg 0-08 capsules ity of capsule 00:00: by mouth 4 [place] 00 (four) Medical times Branch daily. ibuprofen 2019- Yes [id number] 800mg Take 1 U nivers 800 mg 0-08 tablet by ity of tablet 00:00: mouth [place] 00 every 6 Medical (six) Branch hours as needed for Pain (scale 4-6). psyllium 2020- Yes [id number] 3{packe Take 3 Univers 3.4 gram 0-08 t} Packets by ity o f packet 00:00: mouth 3 [place] 00 (three) Medical times Branch daily. diphenoxyla 2020- Yes [id number] 1{tbl} Take 1 Univers te-atropine 0-08 tablet by ity of 2.5-0.025 00:00: mouth [place] mg tablet 00 every 8 Medical (eight) Branch hours. loperamide 2019-08 Yes [id number] 4mg Take 2 U nivers 2 mg 0-08 capsules ity of capsule 00:00: by mouth 4 [place] 00 (four) Medical times Branch daily. ibuprofen 2019-08 Yes [id number] 800mg Take 1 U nivers 800 mg 0-08 tablet by ity of tablet 00:00: mouth [place] 00 every 6 Medical (six) Branch hours as needed for Pain (scale 4-6). psyllium 2019-08 Yes [id number] 3{packe Take 3 [facility] 3.4 gram 0-08 t} Packets by ity o f packet 00:00: mouth 3 [place] 00 (three) Medical times Branch daily. diphenoxyla 2019-08 Yes [id number] 1{tbl} Take 1 [facility] te-atropine 0-08 tablet by ity of 2.5-0.025 00:00: mouth [place] mg tablet 00 every 8 Medical (eight) Branch hours. loperamide 2019-08 Yes [id number] 4mg Take 2 U nivers 2 mg 0-08 capsules [facility] of capsule 00:00: [place] mouth 4 [place] (four) [facility] times Branch daily. ibuprofen 2019-08 Yes [id number] 800mg Take 1 U nivers 800 mg 0-08 tablet by ity of tablet 00:00: mouth [place] 00 every 6 Medical (six) Branch hours as needed for Pain (scale 4-6). acetaminoph 2019-08- No [id number] 650mg Take 2 [facility] en 325 mg 0-08 10-09 tablets by ity of tablet 00:00: 04:59 mouth [place] 00 :00 every 6 Medical (six) Branch hours as needed for Pain (scale 1-3). acetaminoph 2019-08- No [id number] 650mg Take 2 [facility] en 325 mg 0-08 10-09 tablets by ity of tablet 00:00: 04:59 mouth [place] 00 :00 every 6 Medical (six) Branch hours as needed for Pain (scale 1-3). acetaminoph 2019-08- No [id number] 650mg Take 2 [facility] en 325 mg 0-08 10-09 tablets by ity of tablet 00:00: 04:59 mouth [place] 00 :00 every 6 Medical (six) Branch hours as needed for Pain (scale 1-3). acetaminoph 2019-08- No [id number] 650mg Take 2 [facility] en 325 mg 0-08 10-09 tablets by ity of tablet 00:00: 04:59 mouth [place] 00 :00 every 6 Medical (six) Branch hours as needed for Pain (scale 1-3). acetaminoph 2019-08- No [id number] 650mg Take 2 [facility] en 325 mg 0-08 10-09 tablets by ity of tablet 00:00: 04:59 mouth [place] 00 :00 every 6 Medical (six) Branch hours as needed for Pain (scale 1-3). acetaminoph 2019-08 No [id number] 650mg Take 2 [facility] en 325 mg 0-08 10-09 tablets by ity of tablet 00:00: 04:59 mouth [place] 00 :00 every 6 Medical (six) Branch hours as needed for Pain (scale 1-3). acetamino 2019-08 No [id number] 650mg Take 2 [facility] en 325 mg 0-08 10-09 tablets by ity of tablet 00:00: 04:59 mouth [place] 00 :00 every 6 Medical (six) Branch hours as needed for Pain (scale 1-3). acetaminoph 2019-08- No [id number] 650mg Take 2 [facility] en 325 mg 0-08 10-09 tablets by ity of tablet 00:00: 04:59 mouth [place] 00 :00 every 6 Medical (six) Branch hours as needed for Pain (scale 1-3). acetamino 2019-08- No [id number] 650mg Take 2 [facility] en 325 mg 0-08 10-09 tablets by ity of tablet 00:00: 04:59 mouth [place] 00 :00 every 6 Medical (six) Branch hours as needed for Pain (scale 1-3). acetaminoph 2019-08- No [id number] 650mg Take 2 [facility] en 325 mg 0-08 10-09 tablets by ity of tablet 00:00: 04:59 mouth [place] 00 :00 every 6 Medical (six) Branch hours as needed for Pain (scale 1-3). acetaminoph 2019-08- No [id number] 650mg Take 2 [facility] en 325 mg 0-08 10-09 tablets by ity of tablet 00:00: 04:59 mouth [place] 00 :00 every 6 Medical (six) Branch hours as needed for Pain (scale 1-3). acetaminoph 2019-08 No [id number] 650mg Take 2 [facility] en 325 mg 0-08 10-09 tablets by ity of tablet 00:00: 04:59 mouth [place] 00 :00 every 6 Medical (six) Branch hours as needed for Pain (scale 1-3). acetaminoph 2019-08- No [id number] 650mg Take 2 [facility] en 325 mg 0-08 10-09 tablets by ity of tablet 00:00: 04:59 mouth [place] 00 :00 every 6 Medical (six) Branch hours as needed for Pain (scale 1-3). acetaminoph 2019-08 No [id number] 650mg Take 2 [facility] en 325 mg 0-08 10-09 tablets by ity of tablet 00:00: 04:59 mouth [place] 00 :00 every 6 Medical (six) Branch hours as needed for Pain (scale 1-3). psyllium 2019-08- No [id number] 3{packe Take 3 [facility] 3.4 gram 0-08 09-16 t} Packets by ity of packet 00:00: 00:00 mouth 3 [place] 00 :00 (three) Medical times Branch daily. diphenoxyla 2019-08 No [id number] 1{tbl} Take 1 [facility] te-atropine 0-08 09-16 tablet by it y of 2.5-0.025 00:00: 00:00 mouth [place] mg tablet 00 :00 every 8 Medical (eight) Branch hours. loperamide 2019-08- No [id number] 4mg Take 2 [facility] 2 mg 0-08 09-16 capsules ity of capsule 00:00: 00:00 by mouth 4 [place] 00 :00 (four) Medical times Branch daily. ibuprofen 2019-08- No [id number] 800mg Take 1 [facility] 800 mg 0-08 09-16 tablet by ity of tablet 00:00: 00:00 mouth [place] 00 :00 every 6 Medical (six) Branch hours as needed for Pain (scale 4-6). acetaminoph 2019-08 No [id number] 650mg Take 2 [facility] en 325 mg 0-08 09-16 tablets by ity of tablet 00:00: 00:00 mouth [place] 00 :00 every 6 Medical (six) Branch hours as needed for Pain (scale 1-3). psyllium 2019-08 No [id number] 3{packe Take 3 [facility] 3.4 gram 0-08 09-16 t} Packets by ity of packet 00:00: 00:00 mouth 3 [place] 00 :00 (three) Medical times Branch daily. diphenoxyla 2019-08 No [id number] 1{tbl} Take 1 [facility] te-atropine 0-08 09-16 tablet by it y of 2.5-0.025 00:00: 00:00 mouth [place] mg tablet 00 :00 every 8 Medical (eight) Branch hours. loperamide 2019-08 No [id number] 4mg Take 2 [facility] 2 mg 0-08 09-16 capsules ity of capsule 00:00: 00:00 by mouth 4 [place] 00 :00 (four) Medical times Branch daily. ibuprofen 2019-08 [id number] 800mg Take 1 [facility] 800 mg 0-08 09-16 tablet by ity of tablet 00:00: 00:00 mouth [place] 00 :00 every 6 Medical (six) Branch hours as needed for Pain (scale 4-6). acetaminoph 2019-08 No [id number] 650mg Take 2 [facility] en 325 mg 0-08 09-16 tablets by ity of tablet 00:00: 00:00 mouth [place] 00 :00 every 6 Medical (six) Branch hours as needed for Pain (scale 1-3). acetaminoph 2019-08 No [id number] 650mg Take 2 [facility] en 325 mg 0-08 10-08 tablets by ity of tablet 00:00: 00:00 mouth [place] 00 :00 every 6 Medical (six) Branch hours as needed for Pain (scale 1-3). ibuprofen 2019-08 No [id number] 800mg Take 1 [facility] 800 mg 0-08 10-08 tablet by ity of tablet 00:00: 00:00 mouth [place] 00 :00 every 6 Medical (six) Branch hours as needed for Pain (scale 4-6). loperamide 2019-08 No [id number] 4mg Take 2 [facility] 2 mg 0-08 10-08 capsules ity of capsule 00:00: 00:00 by mouth 4 [place] 00 :00 (four) Medical times Branch daily. diphenoxyla 2019-08 No [id number] 1{tbl} Take 1 [facility] te-atropine 0-08 10-08 tablet by it y of 2.5-0.025 00:00: 00:00 mouth [place] mg tablet 00 :00 every 8 Medical (eight) Branch hours. psyllium 2019- 2020- No [id number] 3{packe Take 3 [facility] 3.4 gram 0-08 [...] at 0800, Until Discontinu ed, Routine magnesium 2019-08- No 4g 4 g, IV Univ ers sulfate in 0-06 10-06 Piggyback, it y of water 4 12:30: 14:29 ONCE, 1 [place] gram/50 mL 00 :00 dose, Tue Medi mariusz (8 %) IV 05/29/20 at [facility] h Piggyback 4 0730, g Routine magnesium 2019-08 2020- No 2g 2 g, IV Univ ers sulfate in 0-05 10-05 Piggyback, it y of water 2 13:30: 13:20 ONCE, 1 [place] gram/50 mL 00 :00 dose, Mon Medi mariusz (4 %) 05/28/20 at [place] infusion 2 0830, g Routine loperamide 2019-08 [...] on Sun Medical 3.4 gram 05/27/20 at [facility] h packet 1 1999, Packet Until Discontinu ed, Routine loperamide 2019-08 2020- No 4mg 4 mg, Unive rs (IMODIUM 0-04 10-05 Oral, TID, ity of A-D) 19:00: 12:56 First dose [place] capsule 4 00 :31 (after Medical mg last Branch modificati on) on [place] 05/27/20 at 1400, Until Discontinu ed, Routine [...] :00 Intravenou Medic al s, ONCE, 1 [place] dose, 05/25/20 at 1515, Routine magnesium 2019-08 No 4g 4 g, IV Univ ers sulfate in 005-24 Piggyback, it y of water 4 22:15: 22:07 ONCE, 1 [place] gram/50 mL 00 :00 dose, [place] Medi mariusz (8 %) IV 05/24/20 at [facility] h Piggyback 4 1715, g Routine iohexoL 2019-08- No 50mL 50 mL, Univers (OMNIPAQUE 005-24 Injection, it y of 300-50 mL)) 17:45: 17:37 ONCE, 1 [place] injection 00 :00 dose, [place] Medic al 50 mL 05/24/20 at [place] 1245, Routine FENTanyl PF 2019-08- No Slow IV Un piyush (SUBLIMAZE 005-24 Push, PRN, it y of (PF)) 17:00: 17:26 Starting [place] injection 30 :44 [facility] 05/24/20 at [place] 1200, Until Discontinu ed, Routine midazolam 2019-08 No IV Push, Uni vers (VERSED) 005-24 PRN, ity of injection 17:00: 17:00 Starting [place] 16 :16 [facility] 05/24/20 at [place] 1200, Until Discontinu ed, Routine FENTanyl PF 2019-08- No Slow IV Un piyush (SUBLIMAZE 005-24 Push, PRN, it y of (PF)) 16:01: 16:01 Starting [place] injection 03 :03 [facility] 05/24/20 at [place] 1101, Until Discontinu ed, Routine loperamide 2019-08- No 2mg 2 mg, Unive rs (IMODIUM 005-25 Oral, BID, ity of A-D) 13:00: 12:33 First dose [place] capsule 2 00 :17 on [place] Medical mg 05/24/20 at [place] 0800, Until Discontinu ed, Routine iohexol 2019- No 100mL 100 mL, Unive rs (OMNIPAQUE 05-23 0930 Intravenou it y of 350 14:54: 14:54 s, ONCE, 1 [place] BULK-100 00 :00 dose, Wed Medica l mL) 05/23/20 at Branch injection 1015, 100 mL Routine docusate 2019-0 2020- No 100mg 100 mg, [facility] ers (COLACE) 05-23 10-02 Oral, ity of capsule 100 14:00: 17:31 DAILY, [place] mg 00 :24 First dose Medical on Wed Branch 05/23/20 at 0900, Until Discontinu ed, Routine levoFLOXaci 2019-0 2020- No 750mg 750 mg, U nivers n 05-23 10-07 Oral, Q24H ity of (LEVAQUIN) 04:30: 18:00 ABX, First [place] tablet 750 00 :16 dose on Medica l mg Tue Branch 05/22/20 at 2330, Until Discontinu ed, JOÃO
Re ason for Anti-Infec tive: Documented Infection< br>Documen dain Infection Site: Abdominal< br>Duratio n of Therapy: 7 days ondansetron 2019-0 Yes 4mg 4 mg, Slow [facility] (ZOFRAN 930 IV Push, ity of (PF)) 03:15: Administer [place] injection 4 50 over 15 Medic al mg Minutes, Branch Q8HPRN, Starting 05/22/20 at 2215, Until Discontinu ed, Routine, Nausea and Vomiting (N/V) D5W 0.45% 0 Yes IV Univers NaCl 930 Infusion, ity of (1/2NS) 1 L 03:15: at 50 [place] + KCL 20 00 mL/hr, Medical mEq CONTINUOUS Branch , Starting Thu05/22/20 at 2230, Until Discontinu ed, Routine ibuprofen 2019- Yes 800mg 800 mg, [facility] ers (IBU) 05-23 Oral, ity of tablet 800 03:13: Q6HPRN, [place] mg 38 Starting Medical Tue Branch 05/22/20 at 2213, Until Discontinu ed, Routine, Pain (scale 4-6) acetaminoph 2019-0 Yes 650mg 650 mg, Un piyush en 05-23 Oral, ity of (TYLENOL) 03:13: Q6HPRN, [place] tablet 650 36 Starting Medic al mg Tue Branch 05/22/20 at 2213, Until Discontinu ed, Routine, Pain (scale 1-3) morpHINE 2019-0 2020- No 4mg 4 mg, Slow Un piyush injection 4 05-22 IV Push, ity of mg 03:30: 03:13 ONCE, 1 [place] 00 :00 dose, Mon Medical 05/21/20 at [...] of 350 04:02: 04:02 s, ONCE, 1 [place] BULK-100 00 :00 dose, Sat Medica l mL) 05/19/20 at Branch injection 2315, 100 mL Routine ondansetron 2019-0 2020- No 4mg 4 mg, Slow Univers (ZOFRAN 05-20 IV Push, ity of (PF)) 03:45: 03:36 ONCE, 1 [place] injection 4 00 :00 dose, Sat Med ical mg 05/19/20 at Branch 2245, JOÃO morpHINE 2019-0 2020- No 4mg 4 mg, Slow Un piyush injection 4 05-20 IV Push, ity of mg 03:45: 03:36 ONCE, 1 [place] 00 :00 dose, Sat Medical 05/19/20 at Branch 2245, STAT NaCl 0.9% 2020-0 2020- No 1000mL at 999 Uni vers (NS) bolus 05-20 mL/hr, ity of infusion 03:45: 11:13 1,000 mL, [place] 1,000 mL 00 :[facility] dose, 05/19/20 at 2245, STAT ibuprofen 2020-0 Yes [id number] 800mg Take 1 U nivers 800 mg 9-18 tablet by ity of tablet 00:00: mouth [place] 00 every 6 Medical (six) Branch hours as needed for Pain (scale 4-6). levoFLOXaci 2020-0 Yes [id number] 750mg Take 1 [facility] n 750 mg 9-18 tablet by ity of tablet 00:00: mouth [place] 00 every 24 Medical (twenty-fo Branch ur) hours. loperamide 2020-0 Yes [id number] 2mg Take 1 U nivers 2 mg 9-18 capsule by ity of capsule 00:00: mouth [place] 00 daily. Medical Branch ibuprofen 2020-0 Yes [id number] 800mg Take 1 U nivers 800 mg 9-18 tablet by ity of tablet 00:00: mouth [place] 00 every 6 Medical (six) Branch hours as needed for Pain (scale 4-6). levoFLOXaci 2020-0 Yes [id number] 750mg Take 1 Univers n 750 mg 9-18 tablet by ity of tablet 00:00: mouth [place] 00 every 24 Medical (twenty-fo Branch ur) hours. loperamide 2020-0 Yes [id number] 2mg Take 1 U nivers 2 mg 9-18 capsule by ity of capsule 00:00: mouth [place] 00 daily. Medical Branch ibuprofen 2020-0 Yes [id number] 800mg Take 1 U nivers 800 mg 9-18 tablet by ity of tablet 00:00: mouth [place] 00 every 6 Medical (six) Branch hours as needed for Pain (scale 4-6). levoFLOXaci 2020-0 Yes [id number] 750mg Take 1 Univers n 750 mg 9-18 tablet by ity of tablet 00:00: mouth [place] 00 every 24 Medical (twenty-fo Branch ur) hours. loperamide 2020-0 Yes [id number] 2mg Take 1 U nivers 2 mg 9-18 capsule by ity of capsule 00:00: mouth [place] 00 daily. Medical Branch ibuprofen 2020-0 Yes [id number] 800mg Take 1 U nivers 800 mg 9-18 tablet by ity of tablet 00:00: mouth [place] 00 every 6 Medical (six) Branch hours as needed for Pain (scale 4-6). levoFLOXaci 2020-0 Yes [id number] 750mg Take 1 Univers n 750 mg 9-18 tablet by ity of tablet 00:00: mouth [place] 00 every 24 Medical (twenty-fo Branch ur) hours. loperamide 2020-0 Yes [id number] 2mg Take 1 U nivers 2 mg 9-18 capsule by ity of capsule 00:00: mouth [place] 00 daily. Medical Branch ibuprofen 2020-0 Yes [id number] 800mg Take 1 U nivers 800 mg 9-18 tablet by ity of tablet 00:00: mouth [place] 00 every 6 Medical (six) Branch hours as needed for Pain (scale 4-6). levoFLOXaci 2020-0 Yes [id number] 750mg Take 1 Univers n 750 mg 9-18 tablet by ity of tablet 00:00: mouth [place] 00 every 24 Medical (twenty-fo Branch ur) hours. loperamide 2020-0 Yes [id number] 2mg Take 1 U nivers 2 mg 9-18 capsule by ity of capsule 00:00: mouth [place] 00 daily. Medical Branch ibuprofen 2020-0 Yes [id number] 800mg Take 1 U nivers 800 mg 9-18 tablet by ity of tablet 00:00: mouth [place] 00 every 6 Medical (six) Branch hours as needed for Pain (scale 4-6). levoFLOXaci 2020-0 Yes [id number] 750mg Take 1 Univers n 750 mg 9-18 tablet by ity of tablet 00:00: mouth [place] 00 every 24 Medical (twenty-fo Branch ur) hours. loperamide 2020-0 Yes [id number] 2mg Take 1 U nivers 2 mg 9-18 capsule by ity of capsule 00:00: mouth [place] 00 daily. Medical Branch ibuprofen 2020-0 Yes [id number] 800mg Take 1 U nivers 800 mg 9-18 tablet by ity of tablet 00:00: mouth [place] 00 every 6 Medical (six) Branch hours as needed for Pain (scale 4-6). levoFLOXaci 2020-0 Yes [id number] 750mg Take 1 Univers n 750 mg 9-18 tablet by ity of tablet 00:00: mouth [place] 00 every 24 Medical (twenty-fo Branch ur) hours. loperamide 2020-0 Yes [id number] 2mg Take 1 U nivers 2 mg 9-18 capsule by ity of capsule 00:00: mouth [place] 00 daily. Medical Branch ibuprofen 2020-0 Yes [id number] 800mg Take 1 U nivers 800 mg 9-18 tablet by ity of tablet 00:00: mouth [place] 00 every 6 Medical (six) Branch hours as needed for Pain (scale 4-6). levoFLOXaci 2020-0 Yes [id number] 750mg Take 1 Univers n 750 mg 9-18 tablet by ity of tablet 00:00: mouth [place] 00 every 24 Medical (twenty-fo Branch ur) hours. loperamide 2020-0 Yes [id number] 2mg Take 1 U nivers 2 mg 9-18 capsule by ity of capsule 00:00: mouth [place] 00 daily. Medical Branch ibuprofen 2020-0 Yes [id number] 800mg Take 1 U nivers 800 mg 9-18 tablet by ity of tablet 00:00: mouth [place] 00 every 6 Medical (six) Branch hours as needed for Pain (scale 4-6). levoFLOXaci 2020-0 Yes [id number] 750mg Take 1 Univers n 750 mg 9-18 tablet by ity of tablet 00:00: mouth [place] 00 every 24 Medical (twenty-fo Branch ur) hours. loperamide 2020-0 Yes [id number] 2mg Take 1 U nivers 2 mg 9-18 capsule by ity of capsule 00:00: mouth [place] 00 daily. Medical Branch ibuprofen 2020-0 Yes [id number] 800mg Take 1 U nivers 800 mg 9-18 tablet by ity of tablet 00:00: mouth [place] 00 every 6 Medical (six) Branch hours as needed for Pain (scale 4-6). levoFLOXaci 2020-0 Yes [id number] 750mg Take 1 [facility] n 750 mg 9-18 tablet by ity of tablet 00:00: mouth [place] 00 every 24 Medical (twenty-fo Branch ur) hours. loperamide 2020-0 Yes [id number] 2mg Take 1 U nivers 2 mg 9-18 capsule by ity of capsule 00:00: mouth [place] 00 daily. Medical Branch ibuprofen 2020-0 Yes [id number] 800mg Take 1 U nivers 800 mg 9-18 tablet by ity of tablet 00:00: mouth [place] 00 every 6 Medical (six) Branch hours as needed for Pain (scale 4-6). levoFLOXaci 2020-0 Yes [id number] 750mg Take 1 [facility] n 750 mg 9-18 tablet by ity of tablet 00:00: mouth [place] 00 every 24 Medical (twenty-fo Branch ur) hours. loperamide 2020-0 Yes [id number] 2mg Take 1 U nivers 2 mg 9-18 capsule by ity of capsule 00:00: mouth [place] 00 daily. Medical Branch ibuprofen 2020-0 Yes [id number] 800mg Take 1 U nivers 800 mg 9-18 tablet by ity of tablet 00:00: mouth [place] 00 every 6 Medical (six) Branch hours as needed for Pain (scale 4-6). levoFLOXaci 2020-0 Yes [id number] 750mg Take 1 [facility] n 750 mg 9-18 tablet by ity of tablet 00:00: mouth [place] 00 every 24 Medical (twenty-fo Branch ur) hours. loperamide 2020-0 Yes [id number] 2mg Take 1 U nivers 2 mg 9-18 capsule by ity of capsule 00:00: mouth [place] 00 daily. Medical Branch ibuprofen 2020-0 Yes [id number] 800mg Take 1 U nivers 800 mg 9-18 tablet by ity of tablet 00:00: mouth [place] 00 every 6 Medical (six) Branch hours as needed for Pain (scale 4-6). levoFLOXaci 2020-0 Yes [id number] 750mg Take 1 Univers n 750 mg 9-18 tablet by ity of tablet 00:00: mouth [place] 00 every 24 Medical (twenty-fo Branch ur) hours. loperamide 2020-0 Yes [id number] 2mg Take 1 U nivers 2 mg 9-18 capsule by ity of capsule 00:00: mouth [place] 00 daily. Medical Branch acetaminoph 2020-0 2020- No [id number] 650mg Take 2 [facility] en 325 mg 9-18 09-19 tablets by ity of tablet 00:00: 04:59 mouth [place] 00 :00 every 6 Medical (six) Branch hours as needed for Pain (scale 1-3). acetaminoph 2020-0 2020- No [id number] 650mg Take 2 Univers en 325 mg 9-18 09-19 tablets by ity of tablet 00:00: 04:59 mouth [place] 00 :00 every 6 Medical (six) Branch hours as needed for Pain (scale 1-3). acetaminoph 2020-0 2020- No [id number] 650mg Take 2 [facility] en 325 mg 9-18 09-19 tablets by ity of tablet 00:00: 04:59 mouth [place] 00 :00 every 6 Medical (six) Branch hours as needed for Pain (scale 1-3). acetaminoph 2020-0 2020- No [id number] 650mg Take 2 Univers en 325 mg 9-18 09-19 tablets by ity of tablet 00:00: 04:59 mouth [place] 00 :00 every 6 Medical (six) Branch hours as needed for Pain (scale 1-3). acetaminoph No [id number] 650mg Take 2 [facility] en 325 mg 9-18 09-19 tablets by ity of tablet 00:00: 04:59 mouth [place] 00 :00 every 6 Medical (six) Branch hours as needed for Pain (scale 1-3). acetaminoph No [id number] 650mg Take 2 [facility] en 325 mg 9-18 09-19 tablets by ity of tablet 00:00: 04:59 mouth [place] 00 :00 every 6 Medical (six) Branch hours as needed for Pain (scale 1-3). acetaminoph No [id number] 650mg Take 2 [facility] en 325 mg 9-18 09-19 tablets by ity of tablet 00:00: 04:59 mouth [place] 00 :00 every 6 Medical (six) Branch hours as needed for Pain (scale 1-3). acetaminoph No [id number] 650mg Take 2 [facility] en 325 mg 9-18 09-19 tablets by ity of tablet 00:00: 04:59 mouth [place] 00 :00 every 6 Medical (six) Branch hours as needed for Pain (scale 1-3). acetaminoph No [id number] 650mg Take 2 [facility] en 325 mg 9-18 09-19 tablets by ity of tablet 00:00: 04:59 mouth [place] 00 :00 every 6 Medical (six) Branch hours as needed for Pain (scale 1-3). acetaminoph No [id number] 650mg Take 2 [facility] en 325 mg 9-18 09-19 tablets by ity of tablet 00:00: 04:59 mouth [place] 00 :00 every 6 Medical (six) Branch hours as needed for Pain (scale 1-3). acetaminoph No [id number] 650mg Take 2 Univers en 325 mg 9-18 09-19 tablets by ity of tablet 00:00: 04:59 mouth [place] 00 :00 every 6 Medical (six) Branch hours as needed for Pain (scale 1-3). acetaminoph No [id number] 650mg Take 2 Univers en 325 mg 9-18 09-19 tablets by ity of tablet 00:00: 04:59 mouth [place] 00 :00 every 6 Medical (six) Branch hours as needed for Pain (scale 1-3). acetaminoph 2020- No [id number] 650mg Take 2 Univers en 325 mg 9-18 -19 tablets by ity of tablet 00:00: 04:59 mouth [place] 00 :00 every 6 Medical (six) Branch hours as needed for Pain (scale 1-3). acetaminoph No [id number] 650mg Take 2 [facility] en 325 mg 9-18 10-08 tablets by ity of tablet 00:00: 00:00 mouth [place] 00 :00 every 6 Medical (six) Branch hours as needed for Pain (scale 1-3). ibuprofen No [id number] 800mg Take 1 [facility] 800 mg 9-18 10-08 tablet by ity of tablet 00:00: 00:00 mouth [place] 00 :00 every 6 Medical (six) Branch hours as needed for Pain (scale 4-6). levoFLOXaci No [id number] 750mg Take 1 Univers n 750 mg 9-18 10-08 tablet by ity o f tablet 00:00: 00:00 mouth [place] 00 :00 every 24 Medical (twenty-fo Branch ur) hours. loperamide No [id number] 2mg Take 1 [facility] 2 mg 9-18 [...] days. Indication s: acute pain HYDROcodone 2019- 2020- No [id number] 1{tbl} Take 1 U [...] Medi mariusz (8 %) IV 05/08/20 at [facility] h Piggyback 4 0730, g Routine loperamide [...] ringers IV 05-07- mL/hr, ity of infusion 13:15: 14:09 1,000 mL, [place] as 1,000 mL 00 :00 Intravenou Medic al s, ONCE, 1 Branch dose, 05/07/20 at 0815, Routine HYDROcodone 2020-0 Yes [...] Branch infusion 2 0800, g Routine ibuprofen 2020-0 Yes 800mg 800 mg, Univ ers (IBU) 05-07 Oral, ity of tablet 800 12:45: Q6HPRN, [place] mg 22 Starting Medical Mon Branch 05/07/20 at 0745, Until Discontinu ed, Routine, Pain (scale 4-6) FENTanyl PF 2019-2019- No Slow IV Un piyush (SUBLIMAZE 05-05 Push, PRN, it y of (PF)) 18:53: 20:05 Starting [place] injection 39 :03 Sat Medical 05/05/20 at Branch 1353, Until Discontinu ed, Routine lidocaine 2019- No PRN, Univers 1% (PF) 05-05 Starting ity of (XYLOCAINE) 18:26: 18:26 Sat [place] injection 34 :34 05/05/20 at [facility] mariusz 1326, Branch Until Discontinu ed, Routine NaCl 0.9% 2019- No CONTINUOUS U nivers (NS) bolus 05-05 PRN, ity of infusion 18:15: 18:15 Starting [place] 06 :06 [facility] Medical 05/05/20 at Branch 1315, Until Discontinu [...] First dose Medica l I.V.) RTU on [facility] IV infusion 05/05/20 at 500 mg [...] :43 Starting Medi mariusz tablet 1 Sat [place] tablet 05/05/20 at 0115, Until 05/07/20 at 0745, Routine, Pain (scale 4-6) acetaminoph 2019-0 Yes 650mg 650 mg, Un piyush en 05-05 Oral, ity of (TYLENOL) 06:15: Q6HPRN, [place] tablet 650 23 Starting Medic al mg Sat [place] 05/05/20 at 0115, Until Discontinu ed, Routine, [...] injection 2300, 120 mL Routine NaCl 0.9% 0 2020- No 1000mL at 999 Uni vers (NS) bolus 05-05 mL/hr, ity of infusion 03:30: 05:46 1,000 mL, [place] 1,000 mL 00 :00 IV Medical Infusion, Branch ONCE, 1 dose, 05/04/20 at 2230, STAT FENTanyl PF 0 2019- No 50ug 50 mcg, Un piyush (SUBLIMAZE 05-05 Slow IV ity o f (PF)) 03:15: 03:19 Push, [place] injection 00 :00 ONCE, 1 Medical 50 mcg dose, Fri Branch 05/04/20 at 2215, Routine ondansetron 2019- No 4mg 4 mg, Slow Univers (ZOFRAN 05-05 IV Push, ity of (PF)) 03:15: 03:18 ONCE, 1 [place] injection 4 00 :00 dose, Fri Med ical mg 05/04/20 at Branch 2215, JOÃO ketorolac 2019- No 60mg 60 mg, Unive rs (TORADOL) [...] Indication s: acute pain ibuprofen 2020-0 Yes [id number] 400mg Take 2 Univers 200 mg 9-08 tablets by ity of tablet 00:00: mouth [place] 00 every 6 Medical (six) Branch hours as needed for Pain (scale 1-3). ibuprofen 2020-0 Yes [id number] 400mg Take 2 [facility] 200 mg 9-08 tablets by ity of tablet 00:00: mouth [place] 00 every 6 Medical (six) Branch hours as needed for Pain (scale 1-3). ibuprofen 2020-0 Yes [id number] 400mg Take 2 [facility] 200 mg 9-08 tablets by ity of tablet 00:00: mouth [place] 00 every 6 Medical (six) Branch hours as needed for Pain (scale 1-3). ibuprofen 2020-0 Yes [id number] 400mg Take 2 [facility] 200 mg 9-08 tablets by ity of tablet 00:00: mouth [place] 00 every 6 Medical (six) Branch hours as needed for Pain (scale 1-3). ibuprofen 2020-0 Yes [id number] 400mg Take 2 [facility] 200 mg 9-08 tablets by ity of tablet 00:00: mouth [place] 00 every 6 Medical (six) Branch hours as needed for Pain (scale 1-3). ibuprofen 2020-0 Yes [id number] 400mg Take 2 Univers 200 mg 9-08 tablets by ity of tablet 00:00: mouth [place] 00 every 6 Medical (six) Branch hours as needed for Pain (scale 1-3). ibuprofen 2020-0 Yes [id number] 400mg Take 2 [facility] 200 mg 9-08 tablets by ity of tablet 00:00: mouth [place] 00 every 6 Medical (six) Branch hours as needed for Pain (scale 1-3). acetaminoph 2020- No [id number] 650mg Take 2 Univers en - 09-09 tablets by ity of (TYLENOL) 00:00: 04:59 mouth [place] 325 mg 00 :00 every 6 Medical tablet (six) Branch hours as needed for Pain (scale 4-6). acetaminoph 2020- No [id number] 650mg Take 2 Univers en 05-01-09 tablets by ity of (TYLENOL) 00:00: 04:59 mouth [place] 325 mg 00 :00 every 6 Medical tablet (six) Branch hours as needed for Pain (scale 4-6). acetaminoph 2020- No [id number] 650mg Take 2 [facility] en 05-01 09-09 tablets by ity of (TYLENOL) 00:00: 04:59 mouth [place] 325 mg 00 :00 every 6 Medical tablet (six) Branch hours as needed for Pain (scale 4-6). acetaminoph 2020- No [id number] 650mg Take 2 [facility] en 05-01-09 tablets by ity of (TYLENOL) 00:00: 04:59 mouth [place] 325 mg 00 :00 every 6 Medical tablet (six) Branch hours as needed for Pain (scale 4-6). acetaminoph 2020- No [id number] 650mg Take 2 [facility] en -04 01-09 tablets by ity of (TYLENOL) 00:00: 04:59 mouth [place] 325 mg 00 :00 every 6 Medical tablet (six) Branch hours as needed for Pain (scale 4-6). acetaminoph 2020- No [id number] 650mg Take 2 Univers en 9- 09-09 tablets by ity of (TYLENOL) 00:00: 04:59 mouth [place] 325 mg 00 :00 every 6 Medical tablet (six) Branch hours as needed for Pain (scale 4-6). acetaminoph 2020- No [id number] 650mg Take 2 Univers en 05-01 tablets by ity of (TYLENOL) 00:00: 04:59 mouth [place] 325 mg 00 :00 every 6 Medical tablet (six) Branch hours as needed for Pain (scale 4-6). ciprofloxac No [id number] 750mg Take 1 Univers in HCl 750 05-01 tablet by ity of mg tablet 00:00: 04:59 mouth [place] 00 :00 every 12 Medical (twelve) Branch hours for 14 days. amoxicillin No [id number] 1{tbl} Take 1 Univers -clavulanat 05-01 tablet by it y of e 00:00: 04:59 mouth 2 [place] (AUGMENTIN) 00 :00 (two) Medical 875-125 mg times Branch per tablet daily for 14 days. ciprofloxac No [id number] 750mg Take 1 Univers in HCl 750 05-01 tablet by ity of mg tablet 00:00: 04:59 mouth [place] 00 :00 every 12 Medical (twelve) Branch hours for 14 days. amoxicillin No [id number] 1{tbl} Take 1 Univers -clavulanat 05-01 tablet by it y of e 00:00: 04:59 mouth 2 [place] (AUGMENTIN) 00 :00 (two) Medical 875-125 mg times Branch per tablet daily for 14 days. ciprofloxac 2019- No [id number] 750mg Take 1 Univers in HCl 750 05-01 tablet by ity of mg tablet 00:00: 04:59 mouth [place] 00 :00 every 12 Medical (twelve) Branch hours for 14 days. amoxicillin No [id number] 1{tbl} Take 1 Univers -clavulanat 05-01 tablet by it y of e 00:00: 04:59 mouth 2 [place] (AUGMENTIN) 00 :00 (two) Medical 875-125 mg times Branch per tablet daily for 14 days. ciprofloxac 2019-0 2020- No [id number] 750mg Take 1 Univers in HCl 750 05-01 tablet by ity of mg tablet 00:00: 04:59 mouth [place] 00 :00 every 12 Medical (twelve) Branch hours for 14 days. amoxicillin 2019- 2020- No [id number] 1{tbl} Take 1 Univers -clavulanat 05-01 tablet by it y of e 00:00: 04:59 mouth 2 [place] (AUGMENTIN) 00 :00 (two) Medical 875-125 mg times Branch per tablet daily for 14 days. ciprofloxac 2020-0 2020- No [id number] 750mg Take 1 Univers in HCl 750 05-01 tablet by ity of mg tablet 00:00: 04:59 mouth [place] 00 :00 every 12 Medical (twelve) Branch hours for 14 days. amoxicillin 2019-2019- No [id number] 1{tbl} Take 1 Univers -clavulanat 05-01 tablet by it y of e 00:00: 04:59 mouth 2 [place] (AUGMENTIN) 00 :00 (two) Medical 875-125 mg times Branch per tablet daily for 14 days. ciprofloxac 2019-0 2020- No [id number] 750mg Take 1 Univers in HCl 750 05-01 tablet by ity of mg tablet 00:00: 04:59 mouth [place] 00 :00 every 12 Medical (twelve) Branch hours for 14 days. amoxicillin 2019-2019- No [id number] 1{tbl} Take 1 Univers -clavulanat 05-01 tablet by it y of e 00:00: 04:59 mouth 2 [place] (AUGMENTIN) 00 :00 (two) Medical 875-125 mg times Branch per tablet daily for 14 days. ciprofloxac 2020-0 2020- No [id number] 750mg Take 1 Univers in HCl 750 05-01 tablet by ity of mg tablet 00:00: 04:59 mouth [place] 00 :00 every 12 Medical (twelve) Branch hours for 14 days. amoxicillin 2019- 2020- No [id number] 1{tbl} Take 1 Univers -clavulanat 05-01 tablet by it y of e 00:00: 04:59 mouth 2 [place] (AUGMENTIN) 00 :00 (two) Medical 875-125 mg times Branch per tablet daily for 14 days. acetaminoph 2019- 2020- No [id number] 650mg Take 2 Univers en 05-01 tablets by ity of (TYLENOL) 00:00: 00:00 mouth [place] 325 mg 00 :00 every 6 Medical tablet (six) Branch hours as needed for Pain (scale 4-6). ibuprofen 2019- 2020- No [id number] 400mg Take 2 Univers 200 mg 05-01 tablets by ity of tablet 00:00: 00:00 mouth [place] 00 :00 every 6 Medical (six) Branch hours as needed for Pain (scale 1-3). ciprofloxac 2019-2019- No [id number] 750mg Take 1 Univers in HCl 750 05-01 tablet by ity of mg tablet 00:00: 00:00 mouth [place] 00 :00 every 12 Medical (twelve) Branch hours for 14 days. amoxicillin 2019- 2020- No [id number] 1{tbl} Take 1 Univers -clavulanat 05-01 tablet by it y of e 00:00: 00:00 mouth 2 [place] (AUGMENTIN) 00 :00 (two) Medical 875-125 mg times Branch per tablet daily for 14 days. lactated 2019- No 1000mL at 999 [facility] ers ringers IV 04-2502 mL/hr, ity of infusion 14:15: 13:31 1,000 mL, [place] 1,000 mL 00 :00 Intravenou Medic al s, ONCE, 1 Branch dose, 04/25/20 at 0915, Routine amoxicillin 2019-0 Yes 1{tbl} 1 tablet, Univers -clavulanat 04-25 Oral, ity of e 01:00: Q12H, [place] (AUGMENTIN) 00 First dose Me dical 875-125 [...] at 0900, Until Discontinu ed, Routine iohexol 2019- No 100mL 100 mL, Unive rs (OMNIPAQUE 04-23 Intravenou it y of 350 23:30: 23:30 s, ONCE, 1 [place] BULK-100 00 :00 dose, Mon Medica l mL) 04/23/20 at Branch injection 1830, 100 mL Routine lactated 2019-2019- No 1000mL at 125 Univ ers ringers IV 04-23 09-01 mL/hr, ity of infusion 23:15: 16:44 1,000 mL, [place] 1,000 mL 00 :20 IV Medical Infusion, Branch CONTINUOUS , Starting [facility] 04/23/20 at 1815, Until Thu04/24/20 at 1144, Routine NaCl 0.9% 2019- No 1000mL at 999 Uni vers (NS) bolus 04-23 mL/hr, ity of infusion 16:30: 16:14 1,000 mL, [place] 1,000 mL 00 :00 IV Medical Piggyback, [place] ONCE, 1 dose, [facility] 04/23/20 at 1130, STAT micafungin 2019- No 100mg 100 mg, IV Univers (MYCAMINE) 04-22 Piggyback, it y of 100 mg in 13:00: 15:59 Q24H ABX, [place] NaCl 0.9% 00 :00 1 dose, Medical (NS) 100 mL First dose Br anch MINI-BAG (after last reorder) on [place] 04/22/20 at 0800, 100 mL
Rest ricted use approved by: ANTIMICROB IAL [employer]EWARDSHI P COMMITTEE< br>Reason for Anti-Infec tive: Documented Infection< br>Documen dain Infection Site: Abdominal< br>Duratio n of Therapy: 7 days ciprofloxac 2019-0 Yes 750mg 750 mg, Un piyush in HCl 04-21 Oral, ity of (CIPRO) 23:00: Q12HA2, [place] tablet 750 00 First dose Med ical mg on Sat [place] 04/21/20 at 1800, Until Discontinu ed, JOÃO
Re ason for Anti-Infec tive: Documented Infection< br>Documen dain Infection Site: Abdominal< br>Duratio n of Therapy: 7 days aspirin 2019- Yes 81mg 81 mg, Univers chewable 04-21 Oral, ity of tablet 81 14:00: DAILY, [place] mg 00 First dose Medical on [facility] Branch 04/21/20 at 0900, Until Discontinu ed, Routine multivitami Yes 1{tbl} 1 tablet, Univers n tablet 1 04-21 Oral, ity of tablet 14:00: DAILY, [place] 00 First dose Medical on [facility] Branch 04/21/20 at 0900, Until Discontinu ed, Routine amoxicillin 2020- No 500mg 500 mg, U nivers -pot 04-21 Oral, TID, ity of clavulanate 13:00: 14:44 First dose [place] 500 mg 00 :32 on [facility] Medical (AUGMENTIN 04/21/20 at [facility] 500) 0800, 500-125 mg Until tablet 500 [...] 0612, Routine, Pain (scale 7-10) D5W 0.45% 2020-0 2020- No IV Univers NaCl 04-19 Infusion, [...] :34 First dose Med ical mg on e Branch 04/17/20 at 2045, Until Discontinu ed, [...] Br anch MINI-BAG (after last reorder) on [facility] 04/17/20 at 1445, Last dose on [facility] 04/21/20 at 1445, 100 mL
Rest ricted use approved by: ANTIMICROB IAL [employer] P COMMITTEE< br>Reason for Anti-Infec tive: Documented Infection< br>Documen dain Infection Site: Abdominal< br>Duratio n of Therapy: 7 days traMADoL 2019-2019- No 50mg 50 mg, Univer s (ULTRAM) 04-17 Oral, ity of tablet 50 17:11: 15:31 Q6HPRN, [place] mg 09 :33 Starting Medical [facility] 04/17/20 at 1211, Until Thu04/20/20 at [...] 04-16 Starting ity of (XYLOCAINE) 21:17: 21:17 [facility] injection 53 :53 04/16/20 at [facility] 1617, Branch Until [facility] 04/16/20 at 1617, Routine FENTanyl PF 2020-0 2020- No Slow IV Un piyush (SUBLIMAZE 04-16 Push, PRN, it y of (PF)) 21:16: 21:16 Starting [place] injection 07 :07 [facility] 04/16/20 at Branch 1616, Until [facility] 04/16/20 at 1616, Routine midazolam 2020-0 2020- No IV Push, Uni vers (VERSED) 04-16 PRN, ity of injection 21:16: 21:16 Starting [place] 07 :07 [facility] 04/16/20 at Branch 1616, Until [facility] 04/16/20 at 1616, Routine piperacilli 2020-0 2020- No 3.375g 3.375 [...] br>Duratio n of Therapy: 7 days iohexol No 120mL 120 mL, Unive rs (OMNIPAQUE [...] by: ANTIMICROB IAL [employer] COMMITTEE lactated No 1000mL at 100 Univ ers ringers [...] 100 mL last MINI-BAG modificati on) on Thu04/12/20 at 2000, Until Discontinu ed, 100 mL
[...] n of therapy: 72 hours ketorolac 2019-0 2019- No 15mg 15 mg, Unive rs (TORADOL) 04-12 Slow IV ity of injection 17:00: 17:03 Push, ONCE [place] 15 mg 00 :00 NOW, 1 Medical dose, [place] Branch 04/12/20 at 1200, Routine
biology faculty member approving Restricted medication : GRIFFIN PEDROA D5W 0.45% 2019-0 2020- No IV Univers NaCl 04-11 Infusion, ity of (1/2NS) 1 L 14:00: 21:44 at 42 [place] + KCL 20 00 :46 mL/hr, Medical mEq CONTINUOUS Branch , Starting Thu04/11/20 at 0900, Until [place] 04/12/20 at 1644, Routine pantoprazol 2019-0 2019- No 40mg 40 mg, Uni vers [...] in 06 :54 Starting Medica l lactated Wed Branch ringers 04/11/20 at 1,000 mL 0852, infusion Until 04/14/20 at 0601, 1,000 mL, at 50 mL/hr nicotine 2020-0 Yes 1{patch 1 Patch, Un piyush (NICODERM) 04-11 } Topical, ity o f 7 mg/24 hr 13:15: Administer [place] patch 1 00 over 24 Medical Patch Hours, Branch Q24H, First dose on Thu04/11/20 at 0815, Until Discontinu ed, Routine enoxaparin 2020- No 40mg 40 mg, Univ ers [...] Thu Medi mariusz (4 %) 04/11/20 at [place] infusion 2 0645, g Routine Total 2020- 2020- No at 40 Univers Parenteral 04-10 mL/hr, ity of Nutrition 22:00: 11:51 2,040 mL, [place] 00 :29 TPNCONTINU Medical OUS, 1 Branch dose, First dose (after last modificati on) on Thu04/10/20 at 1700 magnesium 2019-0 2020- No 4g 4 g, IV Univ ers sulfate in 04-10 Piggyback, it y of water 4 13:30: 13:41 ONCE, 1 [place] gram/50 mL 00 :00 dose, Thu Medi mariusz (8 %) IV 04/10/20 at Branc h Piggyback 4 0830, g Routine DAPTOmycin 2019- 2020- No 500mg 500 [...] by: ANTIMICROB IAL [employer]EW[employer] P COMMITTEE ibuprofen 2019-0 2020- No 600mg 600 mg, Uni vers (IBU) 04-10 Oral, Q8H, ity of tablet 600 03:00: 10:59 First dose [place] mg 00 :06 on [facility] Medical 04/09/20 at Branch 2200, Until Discontinu ed, Routine micafungin 2019- No 100mg 100 mg, IV Univers (MYCAMINE) 04-10 Piggyback, it y of 100 mg in 02:45: 15:57 Q24H ABX, [place] NaCl 0.9% 00 :33 First dose Medi mariusz (NS) 100 mL on [facility] MINI-BAG 04/09/20 at 2145, Until Discontinu ed, [...] First dose Medi mariusz 0.9% (NS) on [facility] 100 mL 04/09/20 at MINI-BAG 2145, Until Discontinu ed, 100 mL
Reas on for Anti-Infec tive: Documented Infection< br>Documen dain Infection Site: Abdominal< br>Duratio n of Therapy: 7 days acetaminoph 2019- No 500mg 500 mg, U nivers en 04-09 Oral, Q6H, ity of (TYLENOL) 23:00: 10:54 First dose [place] tablet 500 00 :23 on [facility] Medical mg 04/09/20 at Branch 1800, Until Discontinu ed, Routine Total 2019-2019- No at 85 Univers Parenteral 04-09-18 mL/hr, ity of Nutrition 22:00: 22:18 2,040 mL, [place] 00 :00 TPNCONTINU Medical OUS, 1 Branch dose, First dose (after last reorder) on [facility] 04/09/20 at 1700 KCL 2019- 2020- No IV Univers (POTASSIUM 04-09 Infusion, ity of CHLORIDE) 17:43: 13:52 TITRATE, [place] 20 mEq in 20 :43 Starting Medica l lactated Mon Branch ringers 04/09/20 at 1,000 mL 1243, infusion Until Thu04/11/20 at 0852, 1,000 mL, at 50 mL/hr acetaminoph 2020-0 2020- No 1000mg 1,000 mg, [...] of e 0.025% 13:00: 14:50 dose on [place] (Dakin') 00 :18 Mon Medical solution 04/09/20 at [facility] h 0800, Until Discontinu ed, Routine magnesium 2019-0 2020- No 2g 2 g, IV Univ ers sulfate in 04-09 Piggyback, it y of water 2 12:00: 12:00 ONCE, 1 [place] gram/50 mL 00 :00 dose, Mon Medi mariusz (4 %) 04/09/20 at Branch infusion 2 0700, g Routine potassium 2020-0 2020- No 44meq 44 mEq, IV Univers phosphate 04-09 Piggyback, ity of 44 mEq in 12:00: 13:04 ONCE, 1 [place] NaCl 0.9% 00 :00 dose, Mon Medic al (NS) 250 mL 04/09/20 at Br anch piggyback 0700, 250 mL Total 2020-0 2020- No at 85 Univers Parenteral 04-08 [...] Univers en ADULT 04-0716 IV ity of ([facility]) 23:00: 14:28 Infusion, [place] injection 00 :31 Administer Medi mariusz 1,000 mg over 15 Branch Minutes, Q6H, 4 doses, First dose (after last reorder) on 04/07/20 at 1800, Last dose on [place] 04/08/20 at 1200, Routine
Indicatio n: Perioperat ector Patient D5W-LR IV 2019- 2020- No 1000mL at 60 Univ ers infusion 04-07 08-16 mL/hr, IV ity o f 1,000 mL 22:45: 15:29 Infusion, [place] 00 :52 CONTINUOUS Medical , Starting Branch 04/07/20 at 1745, Until [place] 04/08/20 at 1029, Routine Total 2019- 2020- No at 85 Univers Parenteral 04-07 08-16 mL/hr, ity of Nutrition 22:00: 22:05 2,040 mL, [place] 00 :00 TPNCONTINU Medical OUS, 1 Branch dose, First dose on 04/07/20 at 1700 fluconazole 2020- No 400mg at 100 Un piyush (DIFLUCAN) 04-07 08-18 mL/hr, IV ity of IV 20:00: 01:35 Piggyback, [place] Piggyback 00 :07 Q24H ABX, Medic al [...] o f succ 02:00: 02:09 Q6H, First [place] (CORTEF) 50 00 :14 dose on Medic al mg in NaCl Thu Branch 0.9% (NS) 04/06/20 at piggyback 2100, Until Discontinu ed, 50 mL sodium 2020-0 Yes 1{bottl 473 mL (1 Uni vers hypochlorit 04-07 e} Bottle), ity of e 0.5% 01:00: Topical, [place] (DAKINS) 00 BID, First Medic al solution dose Branch 473 mL (after last modificati on) on Thu04/06/20 at 2000, Until Discontinu ed, Routine linezolid 2019-0 2020- No 600mg 600 mg, IV Univers [...] substantia l amounts of crystalloi ds. perflutren 2020- No 3mL 3 mL, IV Un [...] g, IV Univ ers sulfate in 04-06 0815 Piggyback, it y of water 4 21:00: [...] 2019- No 1000mg 1,000 mg, Univers (MERREM) 04-0618 [...] 2019- No .2ug/kg 0.2-1.5 Univers dine 200 8-14 08-14 /h mcg/kg/hr ity o f mcg [...] maximum allowed dose, contact prescriber .
LORazepam 2020-0 2020- No 2mg 2 mg, Slow U [...] injection 04/06/20 at Bran ch 1110, Until Thu04/06/20 at 1129, Routine, Intra-op sodium 2020-0 2020- No ONCE INTRA Univ ers bicarbonate 04-06 PROCEDURE, i ty of 8.4 % (1 16:10: 16:29 [place] mEq/mL) 00 :35 Fri Medical injection 04/06/20 at [facility] ch 1110, Until Thu04/06/20 at 1129, Routine, [...] 00 :35 Fri Medical infusion 04/06/20 at [facility] h 1029, Until Thu04/06/20 at 1129, Routine, Intra-op EPINEPHrine 2020-0 2020- No CONTINUOUS Univers 1 mg in 04-06 PRN, ity of NaCl 0.9% 15:29: 16:29 Starting [place] (NS) 00 :35 Fri Medical infusion 04/06/20 at [facility] h 1029, Until Thu04/06/20 at 1129, Routine, Intra-op piperacilli 2020-0 2020- No CONTINUOUS Univers n-tazobacta 04-06 PRN, ity of m (ZOSYN) 14:57: 16:29 Starting [place] 3.375 g in 00 :35 Fri Medical NaCl 0.9% 04/06/20 at [facility] (NS) 100 mL 0957, infusion Until Discontinu ed, 100 mL, Intra-op piperacilli 2020-0 2020- No CONTINUOUS Univers n-tazobacta 04-06 PRN, ity of m (ZOSYN) 14:57: 16:29 Starting [place] 3.375 g in 00 :35 Fri Medical NaCl 0.9% 04/06/20 at [facility] (NS) 100 mL 0957, infusion Until Discontinu ed, 100 mL, Intra-op EPINEPHrine 2020-0 2020- No ONCE INTRA Univers 1:1,000 (1 04-06 PROCEDURE, it y of mg/mL) 14:54: 16:29 Starting [place] (ADRENALIN) 00 :35 Fri Medical injection 04/06/20 at [facility] 0954, Until Discontinu ed, Routine, Intra-op EPINEPHrine 2020-0 2020- No ONCE INTRA Univers 1:1,000 (1 04-06 PROCEDURE, it y of mg/mL) 14:54: 16:29 Starting [place] (ADRENALIN) 00 :35 Fri Medical injection 04/06/20 at [facility] 0954, Until Discontinu ed, Routine, Intra-op NORepinephr 2020-0 2020- No CONTINUOUS Univers ine 04-06 PRN, ity of (LEVOPHED) 14:39: 16:29 [place] 4 mg in 00 :35 Fri Medical NaCl 0.9% 04/06/20 at [facility] (NS) 250 mL 0939, infusion Intra-op NORepinephr 2020-0 2020- No CONTINUOUS Univers ine 04-06 PRN, ity of (LEVOPHED) 14:39: 16:29 [place] 4 mg in 00 :35 Fri Medical NaCl 0.9% 04/06/20 at [facility] (NS) 250 mL 0939, infusion Intra-op rocuronium 2020-0 2020- No IV Push, Un piyush (ZEMURON) 04-06 ONCE INTRA ity of injection 14:36: 16:29 PROCEDURE, [place] 00 :35 Starting Medical Fri Branch 04/06/20 at 0936, Until 04/06/20 at 1129, Routine, Intra-op rocuronium 2020-0 2020- No IV Push, Un piyush (ZEMURON) 04-06 ONCE INTRA ity of injection 14:36: 16:29 PROCEDURE, [place] 00 :35 Starting Medical Fri Branch 04/06/20 at 0936, Until Thu04/06/20 at 1129, Routine, Intra-op phenylephri 2020-0 2020- No Intravenou Univers ne 04-06 s, ONCE ity of (VAZCULEP) 14:22: 16:29 INTRA [place] injection 00 :35 PROCEDURE, [facility] mariusz Starting Branch 04/06/20 at 0922, Until Thu04/06/20 at 1129, Routine, Intra-op phenylephri 2020-0 2020- No Intravenou Univers ne 04-06 s, ONCE ity of (VAZCULEP) 14:22: 16:29 INTRA [place] injection 00 :35 PROCEDURE, [facility] Starting Branch 04/06/20 at 0922, Until [...] mL (1 %) 04/06/20 at [facility] h injection 0915, Until Thu04/06/20 at 1129, Routine, Intra-op FENTanyl PF 2020-0 2020- No ONCE INTRA Univers (SUBLIMAZE 04-06 PROCEDURE, it y of (PF)) 14:15: 16:29 Starting [place] injection 00 :35 [facility] Medical 04/06/20 at Branch 0915, Until Thu04/06/20 [...] [place] injection 00 :35 Starting Medica l [facility] Branch 04/06/20 at 0915, Until Thu04/06/20 at 1129, Routine, Intra-op propofol IV 2020-0 2020- No ONCE INTRA Univers infusion 04-06 PROCEDURE, ity of 14:15: 16:29 Starting [place] 00 :35 [facility] Medical 04/06/20 at Branch 0915, Until Thu04/06/20 at 1129, Routine, Intra-op lidocaine 2020-0 2020- No ONCE INTRA U nivers 1% 04-06 PROCEDURE, ity of (XYLOCAINE) 14:15: 16:29 Starting [place] 100 mg/10 00 :35 [facility] Medical mL (1 %) 04/06/20 at [facility] h injection 0915, Until Thu04/06/20 at 1129, Routine, Intra-op FENTanyl PF 2020-0 2020- No ONCE INTRA Univers (SUBLIMAZE 04-06 PROCEDURE, it y of (PF)) 14:15: 16:29 Starting [place] injection 00 :[address] [facility] 04/06/20 at Branch 0915, Until Thu04/06/20 at 1129, Routine, Intra-op albumin 2020-0 2020- No CONTINUOUS Uni vers (ALBUMINAR- 04-06 PRN, ity of 5) 5 % 14:10: 16:29 Starting [place] injection 00 :[address] [facility] 04/06/20 at Branch 0910, Until Discontinu ed, Intra-op lactated 2020-0 2020- No CONTINUOUS Un piyush ringers IV 04-06 PRN, ity of infusion 14:10: 16:29 Starting [place] 00 :[address] [facility] 04/06/20 at Branch 0910, Until Discontinu ed, Routine, Intra-op albumin 2020-0 2020- No CONTINUOUS Uni vers (ALBUMINAR- 04-06 PRN, ity of 5) 5 % 14:10: 16:29 Starting [place] injection 00 :[address] [facility] 04/06/20 at Branch 0910, Until Discontinu ed, Intra-op lactated 2020-0 2020- No CONTINUOUS Un piyush ringers IV 04-06 PRN, ity of infusion 14:10: 16:29 Starting [place] 00 :[address] [facility] 04/06/20 at Branch 0910, Until Discontinu ed, Routine, Intra-op lactated 2020-0 2020- No 1000mL at 999 [facility] ers ringers IV 04-06 mL/hr, ity of [...] dose Medic al NaCl 0.9% on [facility] Branch (NS) 100 mL 04/05/20 at MINI-BAG [...] [place] injection 00 :49 Administer Medi maruisz 1,000 mg over 15 Branch Minutes, Q6H, [...] Until [place] 04/05/20 at 1413, Routine enoxaparin 2019- 2020- No [...] at 0900, Until Discontinu ed, Routine gabapentin 2019- 2020- No 300mg 300 [...] Last dose on Thu04/04/20 at 1200, Routine
biology faculty member approving Restricted medication : BIA PEDRO methocarbam 2019-2019- No 1000mg 1,000 mg, Univers ol 04-04 Intravenou ity of (ROBAXIN) 03:00: 11:00 s, Q8H, [place] injection 00 :49 First dose Medi mariusz 1,000 mg on [facility] Branch 04/03/20 at 2200, Until Discontinu ed, [...] injection 4 26 Starting Medi mariusz mg [facility] 04/03/20 at 1627, Until Discontinu ed, Routine, Nausea and Vomiting (N/V) alvimopan 2019- No 12mg 12 mg, Unive rs (ENTEREG) 04-03 Oral, ity of capsule 12 13:45: 14:02 ONCE, 1 [place] mg 00 :00 dose, [facility] 04/03/20 at Branch 0845, Routine
Restricte d use approved by: HELENE MEDELLIN - SURGERY/GE NERAL heparin 2019- 2020- No 5000U 5,000 Univers (porcine) 04-03 Units, ity of injection 12:00: 12:02 Subcutaneo [place] 5,000 Units 00 :00 us, ONCE, Med ical 1 dose, Branch [facility] 04/03/20 at 0700, Routine gabapentin 2019- No [...] First dose Medic al NaCl 0.9% on [place] Branch (NS) 100 mL 04/01/20 at MINI-BAG 191, Until Discontinu ed, 100 mL D5W 0.45% 2019-0 2020- No IV Univers NaCl 04-02 Infusion, ity of (1/2NS) 1 L 00:15: 23:16 at 150 [place] + KCL 20 00 :16 mL/hr, Medical mEq CONTINUOUS Branch , Starting [place] 04/01/20 at 1915, Until Thu04/02/20 at 1816, Routine acetaminoph 2019-0 2020- No 650mg 650 mg, U nivers en 04-01 Oral, ity of (TYLENOL) 23:11: 21:31 Q6HPRN, [place] tablet 650 57 :27 Starting Medic al mg [place] 04/01/20 Branch at 1811, Until Thu04/03/20 at 1631, Routine, Pain (scale 1-3), Pain (scale 4-6) NaCl 0.9% 2020-0 2020- No 1000mL at 999 Uni vers (NS) bolus 04-01 mL/hr, ity of infusion 23:10: 00:18 1,000 mL, [place] 1,000 mL 00 :00 IV Medical Piggyback, [place] ONCE, 1 dose, [place] 04/01/20 at 1815, STAT lactulose 2019-0 2020- No 15mL 15 mL, Unive rs (CEPHULAC) 04-01 Oral, ity of solution 15 16:15: 16:01 ONCE, 1 [place] mL 00 :00 dose, [facility] 04/01/20 at Branch 1115, Routine Polyethylen 2019-0 2020- No 17g 17 g, Univ ers e Glycol 03-31 Oral, BID ity o f 3350 15:45: 23:13 MEALS, [place] (MIRALAX) 00 :14 First dose Medi mariusz powder 17 g on [facility] 03/31/20 at 1045, Until Discontinu ed, Routine enoxaparin 2019-2019- No 40mg 40 mg, Univ ers (LOVENOX) 03-31 Subcutaneo ity of injection 14:00: 10:50 us, DAILY, [place] 40 mg 00 :07 First dose Medical on [facility] 03/31/20 at 0900, Until Discontinu ed, Routine D5W-LR IV 2019-0 2020- No 1000mL at 125 Uni vers infusion 03-31 mL/hr, IV ity o f 1,000 mL 03:00: 23:13 Infusion, [place] 00 :14 CONTINUOUS Medical , Starting Branch Thu03/30/20 at 2200, Until [place] 04/01/20 at 1813, Routine ondansetron 2019- No 4mg 4 mg, Slow Univers (ZOFRAN 03-31 IV Push, ity of (PF)) 01:51: 21:31 Q6HPRN, [place] injection 4 28 :27 Starting Medi mariusz mg Thu03/30/20 [place] at 2051, Until Thu04/03/20 at 1631, Routine, Nausea and Vomiting (N/V) iohexol 2019-0 2020- No 100mL 100 mL, Unive rs (OMNIPAQUE 03-31 Intravenou it y of 350 00:15: 21:08 s, ONCE, 1 [place] BULK-100 00 :00 dose, Fri Medica l mL) 03/30/20 at Branch injection 1915, 100 mL Routine ondansetron 2019-0 2020- No 4mg 4 mg, Slow Univers (ZOFRAN 03-30- IV Push, ity of (PF)) 23:15: 22:07 [...] Thu03/28/20 at 0800, Routine metoclopram 2020-0 Yes [id number] 5mg Take 1 Univers tammi HCl 8-05 tablet by ity of (REGLAN) 5 00:00: mouth [place] mg tablet 00 every 12 Medica l (twelve) Branch hours as needed for Nausea and Vomiting (N/V) (constipat ion). metoclopram 2020-0 Yes [id number] 5mg Take 1 Univers tammi HCl 8-05 tablet by ity of (REGLAN) 5 00:00: mouth [place] mg tablet 00 every 12 Medica l (twelve) Branch hours as needed for Nausea and Vomiting (N/V) (constipat ion). metoclopram 2020-0 Yes [id number] 5mg Take 1 [facility] tammi HCl 8-05 tablet by ity of (REGLAN) 5 00:00: mouth [place] mg tablet 00 every 12 Medica l (twelve) Branch hours as needed for Nausea and Vomiting (N/V) (constipat ion). metoclopram 2020-0 Yes [id number] 5mg Take 1 [facility] tammi HCl 8-05 tablet by ity of (REGLAN) 5 00:00: mouth [place] mg tablet 00 every 12 Medica l (twelve) Branch hours as needed for Nausea and Vomiting (N/V) (constipat ion). metoclopram 2020-0 2020- No [id number] 5mg Take 1 [facility] tammi HCl 8-05 [...] heparin 2020-0 Yes 5000U 5,000 [facility] (porcine) 8-03 Units, ity of injection 03:00: Subcutaneo [place] 5,000 Units 00 us, Q8H, Medi mariusz First dose Branch on 03/25/20 at 2200, Until Discontinu ed, Routine ondansetron 2020-0 Yes 4mg 4 mg, Slow Univers (ZOFRAN 03 IV Push, ity of (PF)) 02:46: Q6HPRN, [place] injection 4 11 Starting Medi mariusz mg [place] 03/25/20 Branch at 2146, Until Discontinu ed, Routine, Nausea and Vomiting (N/V) acetaminoph 2020-0 Yes 650mg 650 mg, Un piyush en 803 Oral, ity of (TYLENOL) 02:46: Q6HPRN, [place] tablet 650 05 Starting Medic al mg [place] 03/25/20 Branch at 2146, Until Discontinu ed, Routine, Pain (scale 1-3) iohexol 2020-0 2020- No 100mL 100 mL, Unive rs (OMNIPAQUE 03-26 0803 Intravenou it y of 350 01:30: 01:30 s, ONCE, 1 [place] BULK-100 00 :00 dose, [place] Medica l mL) 03/25/20 at Branch injection 2030, 100 mL Routine NaCl 0.9% 2020-0 2020- No 1000mL at 999 Uni vers (NS) bolus 03-26 08-03 mL/hr, ity of infusion 00:45: 00:42 1,000 mL, [place] 1,000 mL 00 :00 IV Medical Infusion, Branch ONCE, 1 dose, [place] 03/25/20 at 1945, JOÃO enoxaparin 2020-0 Yes [...] IV Push, ity of (PF)) 04:05: Q6HPRN, [place] injection 4 40 Starting Medi mariusz mg Thu03/02/20 at 2305, Until Discontinu ed, Routine, Nausea and Vomiting (N/V) acetaminoph 2020-0 Yes 650mg 650 mg, Un piyush en 7-11 Oral, ity of (TYLENOL) 04:05: Q6HPRN, [place] tablet 650 30 Starting Medic al mg Thu03/02/20 at 2305, Until Discontinu ed, Routine, Pain (scale 1-3) Polyethylen 2020-0 Yes [id number] 17g Take 1 Univers e Glycol 7-07 Packet by ity of 3350 17 00:00: mouth [place] gram powder 00 daily. Medica l Branch Polyethylen 2020-0 Yes [id number] 17g Take 1 Univers e Glycol 7-07 Packet by ity of 3350 17 00:00: mouth [place] gram powder 00 daily. Medica l Branch Polyethylen 2020-0 Yes [id number] 17g Take 1 Univers e Glycol 7-07 Packet by ity of 3350 17 00:00: mouth [place] gram powder 00 daily. Medica l Branch Polyethylen 2020-0 Yes [id number] 17g Take 1 Univers e Glycol 7-07 Packet by ity of 3350 17 00:00: mouth [place] gram powder 00 daily. Medica l Branch Polyethylen 2020-0 2020- No [id number] 17g Take 1 Univers e Glycol 7-07 08-05 Packet by ity o f 3350 17 00:00: 00:00 mouth [place] gram powder 00 :00 daily. Medica l Branch Polyethylen 2020-0 Yes 17g 17 g, Unive rs e Glycol 7-06 Oral, ity of 3350 18:15: DAILY, [place] (MIRALAX) 00 First dose Medi mariusz powder 17 g on Thu02/27/20 at 1315, Until Discontinu ed, Routine enoxaparin 2020-0 Yes 40mg 40 mg, Unive rs (LOVENOX) 7-06 Subcutaneo ity of injection 14:00: [place], DAILY, [place] 40 mg 00 First dose Medical on Thu02/27/20 at 0900, Until Discontinu ed, Routine polyethylen 2020-0 Yes [id number] 17g Take 17 g Univers e glycol 17 7-06 by mouth ity of gram/dose 00:00: daily. [place] powder 00 Medical [place] polyethylen 2020-0 Yes [id number] 17g Take 17 g Univers e glycol 17 7-06 by mouth ity of gram/dose 00:00: daily. [place] powder 00 Medical [place] polyethylen 2020-0 Yes [id number] 17g Take 17 g Univers e glycol 17 7-06 by mouth ity of gram/dose 00:00: daily. [place] powder 00 [facility] polyethylen 2020-0 Yes [id number] 17g Take 17 g Univers e glycol 17 7-06 by mouth ity of gram/dose 00:00: daily. [place] powder [facility] polyethylen 2020-0 Yes [id number] 17g Take 17 g Univers e glycol 17 7-06 by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 Respiratory rate 2021-09-09 16 /min [facility] of 04:59:00 [facility] Body height 2021-09-09 185.4 cm [facility] of 04:59:00 [facility] Body weight 2021-09-09 68.04 kg [facility] of 04:59:00 [facility] BMI 2021-09-09 19.79 kg/m2 [facility] of 04:59:00 [facility] Oxygen saturation 2021-09-09 98 /min [facility] in Arterial blood 04:59:00 [facility] Systolic blood 2021-09-08 129 mm[Hg] [facility] pressure 05:42:00 [facility] Diastolic blood 2021-09-08 69 mm[Hg] [facility] pressure 05:42:00 [facility] Heart rate 2021-09-08 85 /min [facility] of 05:42:00 [facility] Respiratory rate 2021-09-08 17 /min [facility] of 05:42:00 [facility] Oxygen saturation 2021-09-08 98 /min [facility] of in Arterial blood 05:42:00 [facility] m[facility]z by Pulse oximetry [facility] Body temperature 2021-09-08 37.44 Tasia [facility] of 01:22:00 [facility] Body weight 2021-09-08 68 kg University of 01:22:00 [facility] BMI 2021-09-08 19.78 kg/m2 [facility] of 01:22:00 [facility] Systolic blood 2021-09-06 123 mm[Hg] [facility] pressure 21:33:00 [facility] Diastolic blood 2021-09-06 65 mm[Hg] [facility] pressure 21:33:00 [facility] Heart rate 2021-09-06 91 /min [facility] of 21:33:00 [facility] Body temperature 2021-09-06 36.39 Tasia [facility] of 21:33:00 [facility] Respiratory rate 2021-09-06 18 /min [facility] of 21:33:00 [facility] Body weight 2021-09-06 68.04 kg [facility] of 21:33:00 [facility] BMI 2021-09-06 19.79 kg/m2 University of 21:33:00 [facility] Oxygen saturation 2021-09-06 100 /min [facility] of in Arterial blood 21:33:00 [facility] m[facility]z by Pulse oxim[facility] Systolic blood 2021-09-05 99 mm[Hg] [facility] pressure 17:16:00 [facility] Diastolic blood 2021-09-05 62 mm[Hg] [facility] pressure 17:16:00 [facility] Heart rate 2021-09-05 78 /min [facility] of 17:16:00 [facility] Body temperature 2021-09-05 36.39 Tasia [facility] of 17:16:00 [facility] Respiratory rate 2021-09-05 17 /min [facility] of 17:16:00 [facility] Oxygen saturation 2021-09-05 95 /min [facility] of in Arterial blood 17:16:00 [facility] by P[facility] oxim[facility] Body height 2021-08-31 185.4 cm [facility] of 07:29:00 [facility] Body weight 2021-08-31 68.04 kg [facility] of 07:29:00 [facility] BMI 2021-08-31 19.79 kg/m2 University of 07:29:00 [facility] Systolic blood 2021-09-03 111 mm[Hg] [facility] pressure 15:59:00 [facility] Diastolic blood 2021-09-03 65 mm[Hg] [facility] pressure 15:59:00 [facility] Heart rate 2021-09-03 75 /min [facility] of 15:59:00 [facility] Body temperature 2021-09-03 35.72 Tasia [facility] of 15:59:00 [facility] Respiratory rate 2021-09-03 18 /min [facility] of 15:59:00 [facility] Oxygen saturation 2021-09-03 100 /min [facility] of in Arterial blood 15:59:00 [facility] o[facility] Body height 2021-08-31 185.4 cm University of 07:29:00 [facility] Body weight 2021-08-31 68.04 kg University of 07:29:00 [facility] BMI 2021-08-31 19.79 kg/m2 University of 07:29:00 [facility] Systolic blood 2021-08-29 111 mm[Hg] [facility] pressure 23:12:00 [facility] Diastolic blood 2021-08-29 73 mm[Hg] [facility] pressure 23:12:00 [facility] Heart rate 2021-08-29 95 /min [facility] of 23:12:00 [facility] Body temperature 2021-08-29 37 Tasia [facility] of 23:12:00 [facility] Respiratory rate 2021-08-29 18 /min [facility] of 23:12:00 [facility] Body weight 2021-08-29 68.04 kg University of 23:12:00 [facility] BMI 2021-08-29 19.79 kg/m2 University of 23:12:00 [facility] Oxygen saturation 2021-08-29 99 /min [facility] of in Arterial blood 23:12:00 [facility] mariusz by Pulse oximetry [facility] Systolic blood 2021-08-05 92 mm[Hg] [facility] pressure 10:56:00 [facility] Diastolic blood 2021-08-05 75 mm[Hg] [facility] pressure 10:56:00 [facility] Heart rate 2021-08-05 67 /min [facility] of 10:56:00 [facility] Body temperature 2021-08-05 36.22 Tasia [facility] of 10:56:00 [facility] Oxygen saturation 2021-08-05 93 /min [facility] of in Arterial blood 10:56:00 [facility] P[facility] o[facility] Respiratory rate 2021-08-05 16 /min [facility] of 06:24:00 [facility] Body height 2021-07-30 185.4 cm University of 09:49:00 [facility] Body weight 2021-07-30 65.772 kg University of 09:49:00 [facility] BMI 2021-07-30 19.13 kg/m2 University of 09:49:00 [facility] Systolic blood 2021-07-26 107 mm[Hg] [facility] pressure 17:32:00 [facility] Diastolic blood 2021-07-26 69 mm[Hg] [facility] pressure 17:32:00 [facility] Heart rate 2021-07-26 70 /min [facility] of 17:32:00 [facility] Body temperature 2021-07-26 36.39 Tasia [facility] of 17:32:00 [facility] Respiratory rate 2021-07-26 16 /min [facility] of 17:32:00 [facility] Oxygen saturation 2021-07-26 96 /min [facility] of in Arterial blood 17:32:00 [facility] Body height 2021-07-23 185.4 cm [facility] of 08:40:00 [facility] Body weight 2021-07-23 84.5 kg University of 08:40:00 [facility] BMI 2021-07-23 24.58 kg/m2 University of 08:40:00 [facility] Systolic blood 2021-06-04 95 mm[Hg] [facility] pressure 16:20:00 [facility] Diastolic blood 2021-06-04 60 mm[Hg] [facility] pressure 16:20:00 [facility] Heart rate 2021-06-04 61 /min [facility] of 16:20:00 [facility] Body temperature 2021-06-04 36.17 Tasia [facility] of 16:20:00 [facility] Respiratory rate 2021-06-04 18 /min [facility] of 16:20:00 [facility] Oxygen saturation 2021-06-04 100 /min [facility] of in Arterial blood 16:20:00 [facility] m[facility]z by Pulse oxim[facility] Body weight 2021-06-01 65.772 kg University of 19:00:00 [facility] BMI 2021-06-01 19.13 kg/m2 University of 19:00:00 [facility] Body height 2021-05-31 185.4 cm [facility] of 22:12:00 [facility] Systolic blood 2021-05-21 101 mm[Hg] [facility] pressure 20:21:00 [facility] Diastolic blood 2021-05-21 68 mm[Hg] [facility] pressure 20:21:00 [facility] Heart rate 2021-05-21 74 /min [facility] of 20:21:00 [facility] Body temperature 2021-05-21 36.56 Tasia [facility] of 20:21:00 [facility] Respiratory rate 2021-05-21 18 /min [facility] of 20:21:00 [facility] Oxygen saturation 2021-05-21 99 /min [facility] of in Arterial blood 20:21:00 [facility] m[facility]z by Pulse oximetry [facility] Body height 2021-05-21 185.4 cm [facility] of 00:15:00 [facility] Body weight 2021-05-21 65.772 kg University of 00:15:00 [facility] BMI 2021-05-21 19.13 kg/m2 [facility] of 00:15:00 [facility] Systolic blood 2021-05-09 101 mm[Hg] [facility] pressure 16:32:00 [facility] Diastolic blood 2021-05-09 70 mm[Hg] [facility] pressure 16:32:00 [facility] Heart rate 2021-05-09 69 /min [facility] of 16:32:00 [facility] Body temperature 2021-05-09 36.72 Tasia [facility] of 16:32:00 [facility] Respiratory rate 2021-05-09 16 /min [facility] of 16:32:00 [facility] Oxygen saturation 2021-05-09 99 /min [facility] of in Arterial blood 16:32:00 [facility] m[facility]z by Pulse oximetry [facility] Body height 2021-05-08 185.4 cm [facility] of 05:48:00 [facility] Body weight 2021-05-08 80.196 kg University of 05:48:00 [facility] BMI 2021-05-08 23.33 kg/m2 University of 05:48:00 [facility] Heart rate 2020-09-27 89 /min [facility] of 04:25:00 [facility] Respiratory rate 2020-09-27 20 /min [facility] of 04:25:00 [facility] Oxygen saturation 2020-09-27 99 /min [facility] of in Arterial blood 04:25:00 [facility] Systolic blood 2020-09-27 103 mm[Hg] [facility] pressure 04:02:00 [facility] Diastolic blood 2020-09-27 78 mm[Hg] [facility] pressure 04:02:00 [facility] Body temperature 2020-09-27 36.72 Tasia [facility] of 04:00:00 [facility] Body weight 2020-09-26 79.379 kg University of 22:35:00 [facility] BMI 2020-09-26 23.09 kg/m2 [facility] of 22:35:00 [facility] Systolic blood 2020-08-24 105 mm[Hg] [facility] pressure 17:24:00 [facility] Diastolic blood 2020-08-24 64 mm[Hg] [facility] pressure 17:24:00 [facility] Heart rate 2020-08-24 83 /min [facility] of 17:24:00 [facility] Body temperature 2020-08-24 36.56 Tasia [facility] of 17:24:00 [facility] Respiratory rate 2020-08-24 16 /min [facility] of 17:24:00 [facility] Oxygen saturation 2020-08-24 98 /min [facility] of in Arterial blood 17:24:00 [facility] Body height 2020-08-23 185.4 cm [facility] of 03:19:00 [facility] Body weight 2020-08-23 79.379 kg University of 03:19:00 [facility] BMI 2020-08-23 23.09 kg/m2 [facility] of 03:19:00 [facility] Systolic blood 2020-07-10 126 mm[Hg] [facility] pressure 01:32:00 [facility] Diastolic blood 2020-07-10 67 mm[Hg] [facility] pressure 01:32:00 [facility] Heart rate 2020-07-10 92 /min University of :32:00 [facility] Body temperature 2020-07-10 37.17 Tasia [facility] of :32:00 [facility] Respiratory rate 2020-07-10 16 /min [facility] of 01:32:00 [facility] Oxygen saturation 2020-07-10 100 /min [facility] of in Arterial blood 01:32:00 [facility] Body height 2020-07-09 154.9 cm University of 22:23:00 [facility] Body weight 2020-07-09 68.04 kg [facility] of 22:23:00 [facility] BMI 2020-07-09 28.34 kg/m2 [facility] of 22:23:00 [facility] Systolic blood 2020-06-05 106 mm[Hg] [facility] pressure 15:00:00 [facility] Diastolic blood 2020-06-05 72 mm[Hg] [facility] pressure 15:00:00 [facility] Heart rate 2020-06-05 84 /min [facility] of 15:00:00 [facility] Respiratory rate 2020-06-05 18 /min [facility] of 15:00:00 [facility] Oxygen saturation 2020-06-05 100 /min [facility] of in Arterial blood 15:00:00 [facility] Body temperature 2020-06-05 36.61 Tasia [facility] of 14:54:52 [facility] Body weight 2020-06-05 65.772 kg University of 11:48:00 [facility] BMI 2020-06-05 19.13 kg/m2 [facility] of 11:48:00 [facility] Systolic blood 2020-06-04 130 mm[Hg] [facility] pressure 18:30:00 [facility] Diastolic blood 2020-06-04 84 mm[Hg] [facility] pressure 18:30:00 [facility] Heart rate 2020-06-04 72 /min [facility] of 18:30:00 [facility] Body temperature 2020-06-04 36.72 Tasia [facility] of 18:30:00 [facility] Respiratory rate 2020-06-04 16 /min [facility] of 18:30:00 [facility] Oxygen saturation 2020-06-04 98 /min [facility] of in Arterial blood 18:30:00 [facility] Systolic blood 2020-05-31 90 mm[Hg] [facility] pressure 19:59:00 [facility] Diastolic blood 2020-05-31 59 mm[Hg] [facility] pressure 19:59:00 [facility] Heart rate 2020-05-31 88 /min [facility] of 19:59:00 [facility] Body temperature 2020-05-31 36.78 Tasia [facility] of 19:59:00 [facility] Respiratory rate 2020-05-31 16 /min [facility] of 19:59:00 [facility] Oxygen saturation 2020-05-31 98 /min [facility] of in Arterial blood 19:59:00 [facility] mariusz by Pulse oximetry [facility] Body height 2020-05-30 185.4 cm University of 18:29:00 [facility] Body weight 2020-05-30 69.5 kg weighed in bed University of 18:29:00 [facility] BMI 2020-05-30 20.21 kg/m2 University of 18:29:00 [facility] Systolic blood 2020-05-22 100 mm[Hg] [facility] pressure 04:38:00 [facility] Diastolic blood 2020-05-22 71 mm[Hg] [facility] pressure 04:38:00 [facility] Heart rate 2020-05-22 90 /min [facility] of 04:38:00 [facility] Respiratory rate 2020-05-22 18 /min [facility] of 04:38:00 [facility] Oxygen saturation 2020-05-22 97 /min [facility] of in Arterial blood 04:38:00 [facility] mariusz by Pulse oximetry [facility] Body temperature 2020-05-22 36.83 Tasia [facility] of 02:02:11 [facility] Body height 2020-05-22 185.4 cm University of 01:59:00 [facility] Body weight 2020-05-22 65.772 kg University of 01:59:00 [facility] BMI 2020-05-22 19.13 kg/m2 University of 01:59:00 [facility] Systolic blood 2020-05-20 95 mm[Hg] [facility] of pressure 18:33:34 [facility] Diastolic blood 2020-05-20 62 mm[Hg] [facility] pressure 18:33:34 [facility] Heart rate 2020-05-20 86 /min University of 18:33:34 [facility] Respiratory rate 2020-05-20 20 /min University of 18:33:34 [facility] Oxygen saturation 2020-05-20 98 /min University of in Arterial blood 18:33:34 [facility] mariusz by Pulse oximetry Branch Body temperature 2020-05-20 37 Tasia University of 12:02:00 [facility] Body weight 2020-05-20 65.8 kg University of 12:02:00 [facility] BMI 2020-05-20 19.14 kg/m2 University of 12:02:00 [facility] Systolic blood 2020-05-20 101 mm[Hg] [facility] pressure 10:58:00 [facility] Diastolic blood 2020-05-20 56 mm[Hg] [facility] pressure 10:58:00 [facility] Heart rate 2020-05-20 79 /min University of 10:58:00 [facility] Body temperature 2020-05-20 37 Tasia University of 10:58:00 [facility] Respiratory rate 2020-05-20 16 /min University of 10:58:00 [facility] Oxygen saturation 2020-05-20 99 /min [facility] in Arterial blood 10:58:00 [place] [facility] Pulse oximetry [facility] Body height 2020-05-20 185.4 cm University of 02:36:00 [facility] Body weight 2020-05-20 65.772 kg University of 02:36:00 [facility] BMI 2020-05-20 19.13 kg/m2 University of 02:36:00 [facility] Systolic blood 2020-05-12 93 mm[Hg] [facility] pressure 17:02:00 [facility] Diastolic blood 2020-05-12 61 mm[Hg] [facility] pressure 17:02:00 [facility] Body temperature 2020-05-12 37.06 Tasia University of 17:02:00 [facility] Heart rate 2020-05-12 74 /min University of 09:00:00 [facility] Respiratory rate 2020-05-12 18 /min University of 09:00:00 [facility] Oxygen saturation 2020-05-12 95 /min [facility] of in Arterial blood 09:00:00 [facility] by Pulse oximetry Branch Body height 2020-05-05 185.4 cm University of 09:05:00 [facility] Body weight 2020-05-05 65.772 kg University of 09:05:00 [facility] BMI 2020-05-05 19.13 kg/m2 University of 09:05:00 [facility] Systolic blood 2020-05-03 107 mm[Hg] [facility] pressure 04:30:00 [facility] Diastolic blood 2020-05-03 62 mm[Hg] [facility] pressure 04:30:00 [facility] Heart rate 2020-05-03 105 /min University of 04:30:00 [facility] Body temperature 2020-05-03 37.22 Tasia University of 04:30:00 [facility] Respiratory rate 2020-05-03 14 /min University of 04:30:00 [facility] Body height 2020-05-03 185.4 cm University of 04:30:00 [facility] Body weight 2020-05-03 65.772 kg University of 04:30:00 [facility] BMI 2020-05-03 19.13 kg/m2 University of 04:30:00 [facility] Systolic blood 2020-05-02 105 mm[Hg] [facility] pressure 12:46:00 [facility] Diastolic blood 2020-05-02 57 mm[Hg] [facility] pressure 12:46:00 [facility] Heart rate 2020-05-02 79 /min University of 12:46:00 [facility] Body temperature 2020-05-02 36.28 Tasia University of 12:46:00 [facility] Respiratory rate 2020-05-02 16 /min University of 12:46:00 [facility] Oxygen saturation 2020-05-02 98 /min University of in Arterial blood 12:46:00 [facility] by Pulse oximetry [place] Body height 2020-04-16 185.4 cm University of 20:11:00 [facility] Body weight 2020-04-16 79.379 kg University of 20:11:00 [facility] BMI 2020-04-16 23.09 kg/m2 University of 20:11:00 [facility] Respiratory rate 2020-04-06 12 /min University of 16:20:00 [facility] Systolic blood 2020-03-28 125 mm[Hg] [facility] pressure 16:00:00 [facility] Diastolic blood 2020-03-28 87 mm[Hg] [facility] pressure 16:00:00 [facility] Heart rate 2020-03-28 74 /min University of 16:00:00 [facility] Body temperature 2020-03-28 36.44 Tasia University of 16:00:00 [facility] Respiratory rate 2020-03-28 18 /min University of 16:00:00 [facility] Oxygen saturation 2020-03-28 100 /min [facility] in Arterial blood 16:00:00 [place] [facility] Pulse oxim[facility] [place] Body height 2020-03-26 185.4 cm University of 03:49:00 [facility] Body weight 2020-03-26 74.844 kg University of 03:49:00 [facility] BMI 2020-03-26 21.77 kg/m2 University of 03:49:00 [facility] Systolic blood 2020-03-05 107 mm[Hg] [facility] pressure 16:00:00 [facility] Diastolic blood 2020-03-05 67 mm[Hg] [facility] pressure 16:00:00 [facility] Heart rate 2020-03-05 56 /min University of 16:00:00 [facility] Body temperature 2020-03-05 36.5 Tasia University of 16:00:00 [facility] Respiratory rate 2020-03-05 18 /min University of 16:00:00 [facility] Oxygen saturation 2020-03-05 100 /min [facility] of in Arterial blood 16:00:00 [facility] mariusz by Pulse oximetry Branch Body height 2020-03-03 185.4 cm University of 05:49:00 [facility] Body weight 2020-03-03 71.668 kg University of 05:49:00 [facility] BMI 2020-03-03 20.85 kg/m2 University of 05:49:00 [facility] Systolic blood 2020-02-27 100 mm[Hg] [facility] pressure 21:12:00 [facility] Diastolic blood 2020-02-27 74 mm[Hg] [facility] pressure 21:12:00 [facility] Heart rate 2020-02-27 90 /min University of 21:12:00 [facility] Body temperature 2020-02-27 35.78 Tasia University of 21:12:00 [facility] Respiratory rate 2020-02-27 19 /min University of 21:12:00 [facility] Oxygen saturation 2020-02-27 99 /min [facility] of in Arterial blood 21:12:00 [facility] by Pulse oximetry Branch Body weight 2020-02-26 71.215 kg University of 23:05:00 [facility] BMI 2020-02-26 20.71 kg/m2 University of 23:05:00 [facility] Systolic blood 2020-02-26 132 mm[Hg] [facility] pressure 07:43:00 [facility] Diastolic blood 2020-02-26 71 mm[Hg] [facility] pressure 07:43:00 [facility] Heart rate 2020-02-26 82 /min University of 07:43:00 [facility] Respiratory rate 2020-02-26 18 /min University of 07:43:00 [facility] Oxygen saturation 2020-02-26 100 /min [facility] of in Arterial blood 07:43:00 [facility] mariusz by Pulse oximetry Branch Body temperature 2020-02-26 36.94 Tasia University of 04:57:00 [facility] Body height 2020-02-26 185.4 cm University of 02:30:00 [facility] Body weight 2020-02-26 68.04 kg University of 02:30:00 [facility] BMI 2020-02-26 19.79 kg/m2 University of 02:30:00 [facility] Systolic blood 2020-02-05 100 mm[Hg] [facility] pressure 16:00:00 [facility] Diastolic blood 2020-02-05 61 mm[Hg] [facility] pressure 16:00:00 [facility] Heart rate 2020-02-05 60 /min University of 16:00:00 [facility] Body temperature 2020-02-05 36.67 Tasia University of 16:00:00 [facility] Respiratory rate 2020-02-05 17 /min University of 16:00:00 [facility] Oxygen saturation 2020-02-05 98 /min [facility] of in Arterial blood 16:00:00 [facility] mariusz by Pulse oximetry Branch Body height 2020-01-28 185.4 cm University of 23:13:00 [facility] Body weight 2020-01-28 68.04 kg University of 23:13:00 [facility] BMI 2020-01-28 19.79 kg/m2 University of 23:13:00 [facility] Systolic blood 2020-02-05 100 mm[Hg] [facility] pressure 16:00:00 [facility] Diastolic blood 2020-02-05 61 mm[Hg] [facility] pressure 16:00:00 [facility] Heart rate 2020-02-05 60 /min University of 16:00:00 [facility] Body temperature 2020-02-05 36.67 Tasia University of 16:00:00 [facility] Respiratory rate 2020-02-05 17 /min University of 16:00:00 [facility] Oxygen saturation 2020-02-05 98 /min [facility] in Arterial blood 16:00:00 [place] [facility] Pulse oximetry [facility] Body height 2020-01-28 185.4 cm University of 23:13:00 [facility] Body weight 2020-01-28 68.04 kg University of 23:13:00 [facility] BMI 2020-01-28 19.79 kg/m2 University of 23:13:00 [facility] Systolic blood 2020-01-27 114 mm[Hg] [facility] pressure 00:32:00 [facility] Diastolic blood 2020-01-27 66 mm[Hg] [facility] pressure 00:32:00 [facility] Heart rate 2020-01-27 73 /min University of 00:32:00 [facility] Body temperature 2020-01-27 36.67 Tasia University of 00:32:00 [facility] Respiratory rate 2020-01-27 18 /min University of 00:32:00 [facility] Oxygen saturation 2020-01-27 97 /min [facility] in Arterial blood 00:32:00 [facility] mariusz by Pulse oximetry Branch Body height 2020-01-24 185.4 cm University of 23:55:00 [facility] Body weight 2020-01-24 68.04 kg University of 23:55:00 [facility] BMI 2020-01-24 19.79 kg/m2 University of 23:55:00 [facility] Systolic blood 2020-01-27 114 mm[Hg] [facility] pressure 00:32:00 [facility] Diastolic blood 2020-01-27 66 mm[Hg] [facility] pressure 00:32:00 [facility] Heart rate 2020-01-27 73 /min University of 00:32:00 [facility] Body temperature 2020-01-27 36.67 Tasia University of 00:32:00 [facility] Respiratory rate 2020-01-27 18 /min University of 00:32:00 [facility] Oxygen saturation 2020-01-27 97 /min [facility] in Arterial blood 00:32:00 [facility] by Pulse oximetry Branch Body height 2020-01-24 185.4 cm University of :55:00 [facility] Body weight 2020-01-24 68.04 kg University of 23:55:00 [facility] BMI 2020-01-24 19.79 kg/m2 University of 23:55:00 [facility] Body temperature 2019-12-13 36.72 Tasia University of 02:56:16 [facility] Systolic blood 2019-12-13 114 mm[Hg] [facility] pressure 01:57:00 [facility] Diastolic blood 2019-12-13 77 mm[Hg] [facility] pressure 01:57:00 [facility] Heart rate 2019-12-13 75 /min University of 01:57:00 [facility] Respiratory rate 2019-12-13 20 /min University of 01:57:00 [facility] Body height 2019-12-13 185.4 cm University of 01:57:00 [facility] Body weight 2019-12-13 68.04 kg [facility] :57:00 [facility] BMI 2019-12-13 19.79 kg/m2 [facility] :57:00 [facility] Oxygen saturation 2019-12-13 97 /min [facility] in Arterial blood 01:57:00 [facility] by Pulse oximetry Branch Body temperature 2019-12-13 36.72 Tasia [facility] 02:56:16 [facility] Systolic blood 2019-12-13 114 mm[Hg] [facility] pressure 01:57:00 [facility] Diastolic blood 2019-12-13 77 mm[Hg] [place] o f pressure 01:57:00 [facility] Heart rate 2019-12-13 75 /min [facility] :57:00 [facility] Respiratory rate 2019-12-13 20 /min [facility] :57:00 [facility] Body height 2019-12-13 185.4 cm [facility] :57:00 [facility] Body weight 2019-12-13 68.04 kg [facility] :57:00 [facility] BMI 2019-12-13 19.79 kg/m2 [facility] :57:00 [facility] Oxygen saturation 2019-12-13 97 /min [facility] in Arterial blood 01:57:00 [facility] by Pulse oximetry [place] Systolic blood 2022-03-13 94 mm[Hg] [facility] pressure 15:33:00 Diastolic blood 2022-03-13 62 mm[Hg] [facility] h pressure 15:33:00 Heart rate 2022-03-13 109 /min [facility] 15:33:00 Body temperature 2022-03-13 36.67 Tasia [facility] 15:33:00 Respiratory rate 2022-03-13 20 /min [facility] 15:33:00 Body height 2022-03-13 185.4 cm [facility] 15:33:00 Body weight 2022-03-13 66.679 kg [facility] 15:33:00 BMI 2022-03-13 19.39 kg/m2 [facility] 15:33:00 Oxygen saturation 2022-03-13 100 /min [facility] in Arterial blood 15:33:00 by Pulse oximetry Systolic blood 2022-03-09 107 mm[Hg] [facility] pressure 11:00:00 [facility] Diastolic blood 2022-03-09 66 mm[Hg] [facility] pressure 11:00:00 [facility] Heart rate 2022-03-09 58 /min [facility] 11[facility]00:00 [facility] Body temperature 2022-03-09 36.22 Tasia [facility] 11:[facility]:00 [facility] Respiratory rate 2022-03-09 16 /min [facility] 11:00:00 [facility] Oxygen saturation 2022-03-09 100 /min [facility] Arterial blood 11:00:00 Medical nter by Pulse oximetry Body height 2022-03-06 185.4 cm [facility] 12:05:00 [facility] Body weight 2022-03-06 65.772 kg [facility] 12[facility]05:00 [facility] BMI 2022-03-06 19.13 kg/m2 [facility] 12:05:00 [facility] Procedures Procedure Date / Time Performing Clinician Source Performed PHOSPHORUS 2022-05-21 09:31:00 Adriane [facility] MAGNESIUM 2022-05-21 09:31:00 Adriane [facility] BASIC METABOLIC PANEL (NA, 2022-05-21 09:31:00 Adriane, [facility] K, CL, CO2, GLUCOSE, BUN, Medica l Branch CREATININE, [place]) CBC WITH DIFF 2022-05-21 09:31:00 Adriane [facility] INTACT PTH CALCIUM GROUP 2022-05-20 18:29:00 Douglas Arizmendi [facility] RENAL ARTERY DUPLEX - BY 2022-05-20 17:58:00 Douglas Arizmendi [facility] VASCULAR LAB [facility] LACTIC ACID WHOLE BLOOD 2022-05-20 10:43:00 Eros Rios [facility] CREATINE KINASE 2022-05-20 08:36:00 Eros Rios [facility] URIC ACID 2022-05-20 08:36:00 Eros Rios [facility] MAGNESIUM 2022-05-20 08:36:00 Patel Rangel [facility] FERRITIN SERUM 2022-05-20 08:36:00 Eros Rios [facility] CORTISOL AM 2022-05-20 08:36:00 Eros Rios [facility] OSMOLALITY, SERUM OR 2022-05-20 08:36:00 Eros Rios [facility] PLASMA [facility] OSMOLALITY URINE 2022-05-20 08:36:00 Blanca christophe [facility] AMMONIA, PLASMA 2022-05-20 08:36:00 Blanca christophe [facility] VITAMIN B12, LEVEL 2022-05-20 08:36:00 Blanca christophe [facility] THYROID STIMULATING 2022-05-20 08:36:00 Eros Rios [facility] HORMONE [facility] COMP. METABOLIC PANEL 2022-05-20 08:36:00 Blanca christophe [facility] ([id number]) [facility] LIPID PANEL ([id number])(TOTAL 2022-05-20 08:36:00 Eros Rios [facility] CHOLESTEROL, [facility] TRIGLYCERIDES, HDL) IRON PANEL 2022-05-20 08:36:00 Eros Rios [facility] ETHANOL 2022-05-20 08:36:00 Blanca [facility] URINE DRUG (IMMUNOASSAY) - 2022-05-20 08:36:00 [facility] COMPREHENSIVE DRUG SCREEN [facility] SEDIMENTATION RATE 2022-05-20 08:36:00 Eros Rios [facility] CBC WITH DIFF 2022-05-20 08:36:00 Eros Rios [facility] GLYCOSYLATED HEMOGLOBIN 2022-05-20 08:36:00 Eros Rios [facility] (A1C) [facility] PROTHROMBIN TIME / INR 2022-05-20 08:36:00 Eros Rios [facility] URINALYSIS 2022-05-20 08:36:00 Blanca christophe [facility] OCCULT (GUAIAC) BLOOD 2022-05-20 08:36:00 Eros Rios [facility] URINE CULTURE 2022-05-20 08:36:00 Blanca [facility] CLOSTRIDIUM DIFFICILE 2022-05-20 08:36:00 Eros Rios [facility] TOXIN [facility] VITAMIN D, 25-OH 2022-05-20 08:36:00 Eros Rios [facility] UREA NITROGEN, URINE 2022-05-20 08:36:00 Eros Rios [facility] SODIUM, URINE RANDOM 2022-05-20 08:36:00 Eros Rios [facility] PROTEIN CREAT RATIO URINE 2022-05-20 08:36:00 Eros Rios [facility] AC VBG + LACTIC ACID 2022-05-20 08:36:00 Eros Rios [facility] FECAL PATHOGENS BY PCR 2022-05-20 08:36:00 Eros Rios [facility] CT ABDOMEN PELVIS W 2022-05-20 03:23:04 Joel Baez [facility] CONTRAST Medical Branch COVID-19 (ID NOW RAPID 2022-05-20 01:44:00 Joel Baez [facility] TESTING) Medical Branch LAB ONLY COVID 2022-05-20 01:44:00 Joel Baez [facility] INTERPRETATION [facility] LACTIC ACID WHOLE BLOOD 2022-05-20 01:42:00 Joel Baez [facility] LIPASE 2022-05-20 01:30:00 Joel Baez [facility] COMP. METABOLIC PANEL 2022-05-20 01:30:00 Joel Baez [facility] ([id number]) Medical [place] CBC WITH DIFF 2022-05-20 01:30:00 Joel Baez [facility] NOTICE OF PRIVACY 2022-05-19 23:54:00 Doctor Unanela, [facility] PRACTICES [place] [facility] [place] CONSENT/REFUSAL FOR 2022-05-19 23:53:24 Doctor Unassotilia, [facility] DIAGNOSIS AND TREATMENT [place] [place] COMP. METABOLIC PANEL 2022-04-10 03:54:00 Alvarez [facility] ([id number]) Medical Branch CBC WITH DIFF 2022-04-10 03:49:00 Alvarez [facility] LIPASE 2022-04-10 03:07:00 Alvarez [facility] XR CHEST 2 VW 2022-04-10 02:59:18 Alvarez [facility] COVID-19 (ID NOW RAPID 2022-04-10 02:43:00 Alvarez [facility] TESTING) Medical Branch PHOSPHORUS 2022-04-08 10:26:00 [facility] MAGNESIUM 2022-04-08 10:26:00 [facility] BASIC METABOLIC PANEL (NA, 2022-04-08 10:26:00 Shelia [facility] K, CL, CO2, GLUCOSE, BUN, Medica l Branch CREATININE, [place]) CBC WITH DIFF 2022-04-08 10:26:00 [facility] PHOSPHORUS 2022-04-07 09:45:00 [facility]22-04-07 09:45[facility] (NA, 2022-04-07 09:45:00 AlbchapincitoamiDon [facility] K, CL, CO2, GLUCOSE, BUN, Medica l Branch CREATININE, CA) LACTIC ACID WHOLE BLOOD 2022-04-06 09:05:00 Rolf Lemus [facility] MAGNESIUM 2022-04-06 09:04:00 Kurt [facility] BASIC METABOLIC PANEL (NA, 2022-04-06 09:04:00 Rolf [facility] K, CL, CO2, GLUCOSE, BUN, Medica l Branch CREATININE, CA) CBC WITH DIFF 2022-04-06 09:04:00 [facility]OL[facility] (NA, 2022-04-05 08:12:00 [facility] K, CL, CO2, GLUCOSE, BUN, Medica l Branch CREATININE, CA) ACUTE CARE VENOUS BLOOD 2022-04-05 08:12:00 Octavio [facility] CBC WITH DIFF 2022-04-05 08:12:00 Agatha Noonan [facility] BASIC METABOLIC PANEL (NA, 2022-04-04 09:03:00 Rolf Lemus [facility] K, CL, CO2, GLUCOSE, BUN, Medica l Branch CREATININE, CA) US RETROPERITONEAL LIMITED 2022-04-03 23:10:49 Octavio Macario [facility] ACUTE CARE VENOUS BLOOD 2022-04-03 18:33:00 Octavio Macario [facility] OSMOLALITY URINE 2022-04-03 17:59:[address] [facility] BASIC METABOLIC PANEL (NA, 2022-04-03 17:59:00 Octavio [facility] K, CL, CO2, GLUCOSE, BUN, Medica l Branch CREATININE, CA) CREATININE, URINE RANDOM 2022-04-03 17:59:00 Octavio Macario [facility] POTASSIUM, URINE RANDOM 2022-04-03 17:59:00 Octavio Macario [facility] SODIUM, URINE RANDOM 2022-04-03 17:59:00 Octavio Mac[facility] MAGNESIUM 2022-04-03 09:29:00 Octavio Macario [facility] OSMOLALITY, SERUM OR 2022-04-03 09:29:00 Octavio Macario [place] [facility] PLASMA [facility] BASIC METABOLIC PANEL (NA, 2022-04-03 09:29:00 Juventino [facility] K, CL, CO2, GLUCOSE, BUN, Medica l Branch CREATININE, CA) CBC WITH DIFF 2022-04-03 09:29:00 Juventino Thomas [facility] CLOSTRIDIUM DIFFICILE 2022-04-03 03:44:00 [facility] WHOLE BLOOD 2022-04-03 03:38:00 Asam[facility] WHO[facility] BLOOD 2022-04-03 00:07:00 Juventino Thomas [facility] URINE CULTURE 2022-04-02 22:39:00 Aguila [facility] CT ABDOMEN PELVIS WO 2022-04-02 21:07:00 Rekha Sheehan [facility] CONTRAST [facility] LIPASE 2022-04-02 20:00:00 Aguila [facility] TROPONIN I 2022-04-02 20:00:00 Aguila [facility] HEPATIC FUNCTION PANEL 2022-04-02 20:00:00 Aguila [facility] ([id number]) (ALB,T.PRO,BILI Medical Branch T,BU/BC,ALT,AST,ALK PHOS) BASIC METABOLIC PANEL (NA, 2022-04-02 20:00:00 Rekha [facility] K, CL, CO2, GLUCOSE, BUN, Medica l Branch CREATININE, CA) URINALYSIS 2022-04-02 20:00:00 Aguila [facility] CBC WITH DIFF 2022-04-02 18:20:00 Aguila [facility] COVID-19 (ID NOW RAPID 2022-04-02 18:20:00 [facility] Medical Branch LAB ONLY COVID 2022-04-02 18:20:00 Aguila [facility] XR CHEST 2 VW 2022-04-02 17:29:13 Aguila [facility] HB ECG ROUTINE & RHYTHM 2022-04-02 16:32:43 Rekha Sheehan [facility] CONSENT/REFUSAL FOR 2022-04-02 16:29:46 Doctor Unassigned, [facility] DIAGNOSIS AND TREATMENT [place] [facility] BASIC METABOLIC PANEL 2022-03-07 05:51:00 Romie Kuo [facility] HEPATIC FUNCTION PANEL 2022-03-07 05:51:00 Romie Kuo [facility] CBC W/PLT COUNT & AUTO 2022-03-07 05:51:00 Shiela[facility] W/PLT COUNT & AUTO 2022-03-07 05:51:00 [facility] US RENAL COMPLETE 2022-03-06 18:23:00 Romie Kuo [facility] SARS-COV2/RT-PCR ([facility] & 2022-03-06 17:36:00 [facility] Center TSH/FREE T4 IF INDICATED 2022-03-06 14:18:00 Aryan Tello [facility] T4, FREE 2022-03-06 14:18:00 [facility] 2022-03-06 13:48:12 [facility] CHEST 1 VIEW PORTABLE / 2022-03-06 13:42:00 Aryan Tello [facility] BEDSIDE [facility] B-TYPE NATRIURETIC FACTOR 2022-03-06 13:23:00 Aryan Tello [facility] (BNP) [facility] CBC W/PLT COUNT & AUTO 2022-03-06 13:23:00 Aryan Tello [facility] DIFFERENTIAL [facility] COMPREHENSIVE METABOLIC 2022-03-06 13:23:00 Aryan Tello [facility] PANEL [facility] HIGH SENSITIVITY TROPONIN 2022-03-06 13:23:00 Aryan Tello [facility] MAGNESIUM 2022-03-06 13:23:00 Aryan Tello [facility] PHOSPHORUS 2022-03-06 13:23:00 [facility] L[facility] ACID, VENOUS 2022-03-06 13:23:00 Aryan Tello [facility] CREATINE KINASE (CK) 2022-03-06 13:23:00 [facility] CBC W/PLT COUNT & AUTO 2022-03-06 13:23:00 [facility] DIFFERENTIAL [facility] ECG 12-LEAD 2022-03-06 12:12:56 Unknown, H[facility] Doctor [facility] ECG 12-LEAD 2022-03-06 12:12:56 Unknown, [facility] ECG 12-LEAD 2022-03-06 12:12:56 Unknown, [facility] EKG-SCANNED 2022-03-06 00:00:00 Provider, Jacqui [facility] CBC (WITHOUT DIFFERENTIAL) 2022-02-20 05:10:00 Rufino Lazaro [facility] BASIC METABOLIC PANEL 2022-02-20 05:10:00 Rufino Lazaro [facility] MAGNESIUM 2022-02-20 05:10:00 Rufino Lazaro PHOSPHORUS 2022-02-20 05:10:00 Rufino Lazaro INFUSION PUMP 2022-02-19 19:03:50 Rufino Lazaro COMPREHENSIVE METABOLIC 2022-02-19 06:35:00 Fannie Blake [facility] PANEL CBC/DIFF 2022-02-19 06:35:00 Fannie Blake alth PHOSPHORUS 2022-02-19 06:35:00 Fannie Blake alth CBC 2022-02-19 06:35:00 Fannie Blake alth URINALYSIS W/REFLEX TO 2022-02-19 00:34:00 Fannie Blake [facility] URINE CULTURE URINALYSIS 2022-02-19 00:34:00 [facility]LE[facility] 2022-02-19 00:34:00 Chadd Palacios [facility] KIT SARS-COV-2, FLU A/B, RSV 2022-02-18 19:00:00 Chadd Palacios [facility] CORONAVIRUS, COVID-19, OLENA 2022-02-18 19:00:00 Chadd Palacios [facility] XRAY CHEST 1 VIEW 2022-02-18 15:23:00 Roz Scales [facility] CONSULT CLINICAL CASE 2022-02-18 14:50:50 Roz Scales I [facility] MANAGEMENT (RN/SW) CBC/DIFF 2022-02-18 14:16:00 AlbabSusana [facility] BASIC METABOLIC PANEL 2022-02-18 14:16:00 Albab, Susana [facility] MAGNESIUM 2022-02-18 14:16:00 AlbabSusana [facility] PHOSPHORUS 2022-02-18 14:16:00 [facility] CREATINE KINASE (CK) 2022-02-18 14:16:00 [facility] CBC 2022-02-18 14:16:00 Albab, Susana [facility] BASIC METABOLIC PANEL 2022-02-11 03:34:00 Daily Islas [facility] MAGNESIUM 2022-02-11 03:34:00 JamilahfredericTeresa [facility] th PHOSPHORUS 2022-02-11 03:34:00 [facility] CBC (WITHOUT DIFFERENTIAL) 2022-02-11 03:34:00 [facility] CBC/DIFF 2022-02-10 03:39:00 Daily Islas [facility] MET[facility]OLIC PANEL 2022-02-10 03:39:00 [facility] 2022-02-10 03:39:00 [facility] THYROID STIMULATING 2022-02-10 03:39:00 [facility] HORMONE (TSH) FREE T4 2022-02-10 03:39:00 [facility] CBC/DIFF 2022-02-09 04:38:00 Daily Islas [facility] BASIC METABOLIC PANEL 2022-02-09 04:38:00 [facility] CBC 2022-02-09 04:38:00 Rosas [facility] CORTISOL, TOTAL 2022-02-08 11:37:00 Jian Schmitt ealth GLUCOSE POC 2022-02-08 08:07:00 Daily Islas [facility] (WITHOUT DIFFERENTIAL) 2022-02-08 04:00:00 Jian Schmitt [facility] COMPREHENSIVE METABOLIC 2022-02-08 04:00:00 Jian Schmitt [facility] PANEL PHOSPHORUS 2022-02-08 04:00:00 [facility] MAGNES[facility]UM 2022-02-08 04:00:00 Jian Schmitt deborah PT/INR 2022-02-08 04:00:00 Jian Schmitt [facility] ealt URINALYSIS W/REFLEX TO 2022-02-07 18:06:00 GaleAreli shields [facility] URINE CULTURE URINALYSIS 2022-02-07 18:06:00 Areli Arciniega alth URINE CULTURE COLLECTION 2022-02-07 18:06:00 Areli Arciniega [facility] KIT ELECTROLYTES, URINE 2022-02-07 18:06:00 Jyoti Carrillo [facility] OSMOLALITY, URINE 2022-02-07 18:06:00 Jyoti Carrillo [facility] SARS-COV-2, FLU A/B, RSV 2022-02-07 18:05:00 Jyoti Carrillo [facility] CORONAVIRUS, COVID-19, OLENA 2022-02-07 18:05:00 Jyoti Carrillo [facility] NUTRITION CONSULT 2022-02-07 17:43:36 Jian Schmitt [facility] BASIC METABOLIC PANEL 2022-02-07 17:18:00 Jyoti Carrillo [facility] LACTIC ACID 2022-02-07 14:04:00 Areli Arciniega alth CBC/DIFF 2022-02-07 14:03:00 Areli Arciniega alth BASIC METABOLIC PANEL 2022-02-07 14:03:00 Areli Arciniega [facility] LIVER PROFILE 2022-02-07 14:03:00 Areli Arciniega alth LIPASE 2022-02-07 14:03:00 Areli Arciniega alth MAGNESIUM 2022-02-07 14:03:00 Areli Arciniega alth PHOSPHORUS 2022-02-07 14:03:00 Areli Arciniega alth TROPONIN I 2022-02-07 14:03:00 Suze, Loediger Chiara Maged alth CBC 2022-02-07 14:03:00 MicahemilianaAreli shields alth 12 LEAD EKG 2022-01-21 15:46:10 Oir Goldberg [facility] CBC/DIFF 2022-01-21 04:11:00 LindseyTien [facility] MAGNESIUM 2022-01-21 04:11:00 LindseyTien [facility] PHOSPHORUS 2022-01-21 04:11:00 Lindsey Tien P [facility] BASIC METABOLIC PANEL 2022-01-21 04:11:00 Ori Goldberg [facility] CBC 2022-01-21 04:11:00 LindseyTien [facility] CBC/DIFF 2022-01-20 04:37:00 Tien Lucas [facility] MAGNESIUM 2022-01-20 04:37:00 LindseyTien [facility] PHOSPHORUS 2022-01-20 04:37:00 LindseyTien [facility] BASIC METABOLIC PANEL 2022-01-20 04:37:00 LindseyTien [facility] CBC 2022-01-20 04:37:00 LindseyTien [facility] MAGNESIUM 2022-01-19 18:09:00 LindseyNoeh Esther [facility] PHOSPHORUS 2022-01-19 18:09:00 [facility] BASIC METABOLIC PANEL 2022-01-19 18:09:00 [facility] CORTISOL, TOTAL 2022-01-19 18:09:00 Karin Bassett [facility] URINALYSIS W/REFLEX TO 2022-01-19 17:22:00 Tien Lucas [facility] URINE CULTURE URINALYSIS 2022-01-19 17:22:00 LindseyTien herrera [facility] URINE CULTURE COLLECTION 2022-01-19 17:22:00 Tien [facility] KIT COMPUTED TOMOGRAPHY 2022-01-19 13:29:00 Tien Lucas [facility] ABDOMEN AND PELVIS WITHOUT CONTRAST CBC/DIFF 2022-01-19 04:44:00 Tien Lucas [facility] CBC 2022-01-19 04:44:00 Tien Lucas [facility] DIFFERENTIAL, MANUAL (NO 2022-01-19 04:44:00 Tien Lucas [facility] MORPHOLOGY[facility] BASIC METABOLIC PANEL 2022-01-18 17:15:00 T[facility] CBC/DIFF 2022-01-18 04:46:00 Tien Lucas [facility] MAGNESIUM 2022-01-18 04:46:00 Tien Lucas [facility] PHOSPHORUS 2022-01-18 04:46:00 Tien Lucas [facility] BASIC METABOLIC PANEL 2022-01-18 04:46:00 Ori Goldberg [facility] CBC 2022-01-18 04:46:00 Tien Lucas [facility] HIV AG/AB COMBO ROUTINE 2022-01-18 04:46:00 Karin Bassett [facility] SCREENING ENTERIC PATHOGENS NUCLEIC 2022-01-18 03:25:00 Karin Bassett [facility] ACID TEST BASIC METABOLIC PANEL 2022-01-18 00:29:00 Ori Goldberg [facility] BASIC METABOLIC PANEL 2022-01-17 17:07:00 [facility] BASIC METABOLIC PANEL 2022-01-17 13:15:00 [facility] CALPROTECTIN FECAL 2022-01-17 12:38:00 Tien Lucas ealth FECAL LEUKOCYTES 2022-01-17 12:38:00 Tien Lucas [facility] T-TRANSGLUTAMINASE IGA 2022-01-17 12:22:00 T[facility] BASIC METABOLIC PANEL 2022-01-17 08:51:00 Tien Lucas [facility] BASIC METABOLIC PANEL 2022-01-17 04:47:00 [facility] CBC/DIFF 2022-01-17 04:47:00 Tien Lucas [facility] MAGNESIUM 2022-01-17 04:47:00 Tien Lucas [facility] PHOSPHORUS 2022-01-17 04:47:00 Tien Lucas [facility] CBC 2022-01-17 04:47:00 LindseyTien [facility] BASIC METABOLIC PANEL 2022-01-17 00:08:00 Tien Lucas [facility] 12 LEAD EKG 2022-01-16 21:23:25 LindseyTien [facility] BASIC METABOLIC PANEL 2022-01-16 21:08:00 Tien Lucas [facility] XRAY CHEST 2 VIEWS 2022-01-16 19:56:00 LindseyTien [facility] ealth IP CONSULT TO PHYSICAL 2022-01-16 19:17:17 Noe Lucash [facility] THERAPY CONSULT CLINICAL CASE 2022-01-16 19:17:17 LindseyTien [facility] MANAGEMENT (RN/SW) SEQUENTIAL COMPRESSION 2022-01-16 19:17:17 Noe Lucash [facility] PUMP SEQUENTIAL COMPRESSION 2022-01-16 19:17:17 LindseyTien [facility] PUMP SODIUM, URINE, RANDOM 2022-01-16 16:00:00 Nieves, Colin [facility] CREATININE, URINE, RANDOM 2022-01-16 16:00:00 Kevin Nieves [facility] OSMOLALITY, URINE 2022-01-16 16:00:00 Kevin Nieves [facility] SARS-COV-2, FLU A/B, RSV 2022-01-16 15:20:00 Kevin Nieves [facility] CORONAVIRUS, COVID-19, OLENA 2022-01-16 15:20:00 Kevin Nieves [facility] FOLIC ACID 2022-01-16 14:13:00 Kevin Nieves [facility] ealt CREATININE POC 2022-01-16 13:55:00 Raymon Martint h BMP POC 2022-01-16 13:46:00 Raymon Martint h CBC/DIFF 2022-01-16 12:12:00 Raymon Martint h CBC 2022-01-16 12:12:00 Raymon Martin [facility] BASIC METABOLIC PANEL 2022-01-16 12:11:00 Sadiq Vargas [facility] MAGNESIUM 2022-01-16 12:11:00 Sadiq Vargas philipp [facility] VITAMIN B12 2022-01-16 12:11:00 Kevin Nieves ealth OSMOLALITY,SERUM 2022-01-16 12:11:00 Kevin Nieves [facility] INFUSION PUMP 2022-01-11 09:21:05 Helene Anderson [facility] GLUCOSE POC 2022-01-11 07:54:00 Helene Anderson [facility] BASIC METABOLIC PANEL 2022-01-11 04:07:00 Merissa Richards [facility] MAGNESIUM 2022-01-11 04:07:00 [facility] 2022-01-11 04:07:00 [facility] CBC/DIFF 2022-01-11 04:06:00 Merissa Richards [facility] IRON PROFILE 2022-01-11 04:06:00 Brodie Richardsa Felicita [facility] FOLIC ACID 2022-01-11 04:06:00 Brodie Richardsa Felicita [facility] CBC 2022-01-11 04:06:00 Brodie Richardsa Felicit[facility] GLUCOSE POC 2022-01-10 18:16:00 Helene Anderson [facility] URINALYSIS 2022-01-10 16:10:00 Merissa Richards [facility] h URINALYSIS 2022-01-10 16:10:00 Merissa Richards [facility] SARS-COV-2, FLU A/B, RSV 2022-01-10 15:54:00 Merissa Richards [facility] CORONAVIRUS, COVID-19, OLENA 2022-01-10 15:54:00 Antoine Hester [facility] BASIC METABOLIC PANEL 2022-01-10 15:54:00 Merissa Richards [facility] VITAMIN B12 2022-01-10 15:54:00 Merissa Richards [facility] VBG POC 2022-01-10 11:14:00 Dia Jewell philipp [facility] CBC/DIFF 2022-01-10 11:13:00 Antoine Hester [facility] BASIC METABOLIC PANEL 2022-01-10 11:13:00 Antoine Hester [facility] LACTIC ACID 2022-01-10 11:13:00 MirAntoine Laz [facility] h CBC 2022-01-10 11:13:00 Antoine Hester [facility] LIVER PROFILE 2022-01-10 11:13:00 RichardsMerissa Felicita [facility] CK, TOTAL 2022-01-10 11:13:00 Brodie Richardsa [facility] FERRITIN 2022-01-10 11:13:00 RichardsMerissa Felicita [facility] CREATINE KINASE MB (CKMB) 2022-01-10 11:13:00 FerchoMerissa Felicita [facility] XRAY CHEST 2 VIEWS 2022-01-08 21:50:14 Tanja Sebastian [facility] CBC/DIFF 2022-01-08 21:27:00 Tanja Sebastian [facility] BASIC METABOLIC PANEL 2022-01-08 21:27:00 Tanja Sebastian [facility] LIVER PROFILE 2022-01-08 21:27:00 Tanja Sebastian [facility] CK, TOTAL 2022-01-08 21:27:00 Randa Sebastianandra Watson [facility] TROPONIN I 2022-01-08 21:27:00 Tanja Sebastian [facility] CBC 2022-01-08 21:27:00 Randa Sebastianandra [facility] CREATINE KINASE MB (CKMB) 2022-01-08 21:27:00 Tanja Sebastian [facility] 12 LEAD EKG 2022-01-08 20:59:56 Tanja Sebastian [facility] COMP. METABOLIC PANEL 2021-09-14 03:41:00 Mickey Ramos [facility] ([id number]) [facility] CBC WITH DIFF 2021-09-14 03:41:00 Mickey Ramos [facility] CT HEAD WO CONTRAST 2021-09-12 14:10:00 Alona Carty [facility] TROPONIN I 2021-09-12 13:00:00 Odin [facility] BASIC METABOLIC PANEL (NA, 2021-09-12 13:00:00 Odin [facility] K, CL, CO2, GLUCOSE, BUN, Medica l Branch CREATININE, CA) CBC WITH DIFF 2021-09-12 13:00:00 Odin [facility] N-TERMINAL PRO-BNP 2021-09-12 13:00:00 Alona Carty [facility] LIPASE 2021-09-09 05:30:00 Sebastian Pacheco [facility] COMP. METABOLIC PANEL 2021-09-09 05:30:00 Sebastian Pacheco [facility] ([id number]) [facility] CBC WITH DIFF 2021-09-09 05:30:00 Sebastian Pacheco [facility] URINALYSIS 2021-09-08 04:45:00 Sebastian Pacheco [facility] CT ABDOMEN PELVIS W 2021-09-08 02:25:23 Sebastian Pacheco [facility] CONTRAST [facility] LIPASE 2021-09-08 02:02:00 Sebastian Pacheco [facility] COMP. METABOLIC PANEL 2021-09-08 02:02:00 Sebastian Pacheco [facility] ([id number]) [facility] CBC WITH DIFF 2021-09-08 02:02:00 Sebastian Pacheco [facility] LACTIC ACID WHOLE BLOOD 2021-09-08 02:02:00 Sebastian Pacheco [facility] COVID-19 (ID NOW RAPID 2021-09-08 01:54:00 Sebastian Pacheco [facility] TESTING) [facility] BASIC METABOLIC PANEL (NA, 2021-09-04 12:30:00 Demario Godoy [facility] K, CL, CO2, GLUCOSE, BUN, Medica l Branch CREATININE, CA) BASIC METABOLIC PANEL (NA, 2021-09-04 12:30:00 Demario Godoy [facility] K, CL, CO2, GLUCOSE, BUN, Medica l Branch CREATININE, CA) SURGICAL PATHOLOGY EXAM 2021-09-03 14:01:00 Bia Pedro [facility] COLOSTOMY REVISION 2021-09-03 12:58:00 Phatak, [facility] COLOSTOMY REVISION 2021-09-03 12:58:00 Phatak, [facility] BASIC METABOLIC PANEL (NA, 2021-09-03 11:26:00 Siddiqi, Cynthia [facility] K, CL, CO2, GLUCOSE, BUN, Medica l Branch CREATININE, CA) CBC WITHOUT DIFF 2021-09-03 11:26:00 Siddiqi, [facility] BASIC METABOLIC PANEL (NA, 2021-09-03 11:26:00 Siddiqi, Cynthia [facility] K, CL, CO2, GLUCOSE, BUN, Medica l Branch CREATININE, CA) CBC WITHOUT DIFF 2021-09-03 11:26:00 Siddiqi, [facility] TRANSTHORACIC ECHO (TTE) 2021-09-02 21:22:12 Siddiqi, Cynthia [facility] [place] COMPLETE W/ CONTRAST Medical [facility] TRANSTHORACIC ECHO (TTE) 2021-09-02 21:22:12 Siddiqi, Cynthia [facility] [place] COMPLETE W/ CONTRAST Medical [facility] COVID-19 (ID NOW RAPID 2021-09-02 19:35:00 Demario Godoy [facility] TESTING) Medical Branch LAB ONLY COVID 2021-09-02 19:35:00 Demario Godoy [facility] INTERPRETATION Medical Branch COVID-19 (ID NOW RAPID 2021-09-02 19:35:00 Demario Godoy [facility] TESTING) Medical Branch LAB ONLY COVID 2021-09-02 19:35:00 Demario Godyo [facility] INTERPRETATION Medical Branch BASIC METABOLIC PANEL (NA, 2021-09-02 10:40:00 Siddiqi, Cynthia [facility] K, CL, CO2, GLUCOSE, BUN, Medica l Branch CREATININE, CA) BASIC METABOLIC PANEL (NA, 2021-09-02 10:40:00 Siddiqi, Cynthia [facility] K, CL, CO2, GLUCOSE, BUN, Medica l Branch CREATININE, CA) BASIC METABOLIC PANEL (NA, 2021-09-01 21:20:00 Siddiqi, [facility] K, CL, CO2, GLUCOSE, BUN, Medica l Branch CREATININE, CA) BASIC METABOLIC PANEL (NA, 2021-09-01 21:20:00 Siddiqi, [facility] K, CL, CO2, GLUCOSE, BUN, Medica l Branch CREATININE, CA) BLOOD CULTURE SCREEN 2021-09-01 08:03:00 [facility] BASIC [facility]OLIC PANEL (NA, 2021-09-01 08:03:00 Siddiqi, [facility] K, CL, CO2, GLUCOSE, BUN, Medica l Branch CREATININE, CA) CBC WITH DIFF 2021-09-01 08:03:00 Siddiqi, [facility] BLOOD CULTURE SCREEN 2021-09-01 08:03:00 Chasity [facility] BASIC METABOLIC PANEL (NA, 2021-09-01 08:03:00 Siddiqi, [facility] K, CL, CO2, GLUCOSE, BUN, Medica l Branch CREATININE, CA) CBC WITH DIFF 2021-09-01 08:03:00 Siddiqi, [facility] MAGNESIUM 2021-09-01 02:09:[address] [facility] BASIC METABOLIC PANEL (NA, 2021-09-01 02:09:00 Roberto, [facility] K, CL, CO2, GLUCOSE, BUN, Arpita Medica l Branch CREATININE, CA) MAGNESIUM 2021-09-01 02:09:[address] [facility] BASIC METABOLIC PANEL (NA, 2021-09-01 02:09:00 Roberto, [facility] K, CL, CO2, GLUCOSE, BUN, [facility] CREATININE, CA) LACTIC ACID WHOLE BLOOD 2021-08-31 12:40:00 Siddiqi, [facility] LACTIC ACID WHOLE BLOOD 2021-08-31 12:40:00 Siddiqi, [facility] BASIC METABOLIC PANEL (NA, 2021-08-31 11:44:00 Chasity [facility] K, CL, CO2, GLUCOSE, BUN, Medica l Branch CREATININE, CA) BASIC METABOLIC PANEL (NA, 2021-08-31 11:44:00 Gaspar, [facility] K, CL, CO2, GLUCOSE, BUN, Medica l Branch CREATININE, CA) BASIC METABOLIC PANEL (NA, 2021-08-31 06:29:00 Gaspar, [facility] K, CL, CO2, GLUCOSE, BUN, Medica l Branch CREATININE, CA) LACTIC ACID WHOLE BLOOD 2021-08-31 06:29:00 Chasity, [facility] BASIC METABOLIC PANEL (NA, 2021-08-31 06:29:00 Gaspar, [facility] K, CL, CO2, GLUCOSE, BUN, Medica l Branch CREATININE, CA) LACTIC ACID WHOLE BLOOD 2021-08-31 06:29:00 [facility]EN 2021-08-31 06:28:00 Chasity [facility] BLOOD CULTURE WORKUP 2021-08-31 06:28:00 Chasity [facility] GRAM POSITIVE BLOOD 2021-08-31 06:28:00 [facility] PROBE-AEROBIC BLOOD CULTURE SCREEN 2021-08-31 06:28:00 Chasity [facility] BLOOD CULTURE WORKUP 2021-08-31 06:28:00 Chasity [facility] GRAM POSITIVE BLOOD 2021-08-31 06:28:00 [facility] DNA [facility] PROBE-AEROBIC XR CHEST 2 VW 2021-08-31 03:08:00 Riccardo [facility] XR CHEST 2 VW 2021-08-31 03:08:00 Riccardo [facility] OSMOLALITY, SERUM OR 2021-08-31 02:44[facility] 2021-08-31 02:44:00 Riccardo [facility] THYROID STIMULATING 2021-08-31 02:44:00 [facility] PANEL (NA, 2021-08-31 02:44:00 Riccardo [facility] K, CL, CO2, GLUCOSE, BUN, [facility] [place] CREATININE, CA) OSMOLALITY, SERUM OR 2021-08-31 02:44:00 [facility] TROPONIN I 2021-08-31 02:44:00 Diannfdmaggi [facility] THYROID STIMULATING 2021-08-31 02:44:00 Chasity [facility] BASIC METABOLIC PANEL (NA, 2021-08-31 02:44:00 [facility] K, CL, CO2, GLUCOSE, BUN, [facility] CREATININE, CA) OSMOLALITY URINE 2021-08-31 00:08:00 Chasity [facility] URINALYSIS 2021-08-31 00:08:00 Riccardo [facility] SODIUM, URINE RANDOM 2021-08-31 00:08:00 [facility] CHLORIDE, URINE RANDOM 2021-08-31 00:08:00 Chasity [facility] OSMOLALITY URINE 2021-08-31 00:08:00 Chasity [facility] URINALYSIS 2021-08-31 00:08:00 Riccardo [facility] SODIUM, URINE RANDOM 2021-08-31 00:08:00 [facility] CHLORIDE, URINE RANDOM 2021-08-31 00:08:00 [facility] 2021-08-30 23:27:00 Riccardo [facility] COMP. METABOLIC PANEL 2021-08-30 23:27:00 Riccardo [facility] ([id number]) [facility] [place] CBC WITH DIFF 2021-08-30 23:27:00 Gayatri Gu [facility] N-TERMINAL PRO-BNP 2021-08-30 23:27:00 Gayatri Gu [facility] TROPONIN I 2021-08-30 23:27:00 Gayatri Gu [facility] COMP. METABOLIC PANEL 2021-08-30 23:27:00 Gayatri Gu [facility] ([id number]) [facility] [place] CBC WITH DIFF 2021-08-30 23:27:00 Riccardo [facility] N-TERMINAL PRO-BNP 2021-08-30 23:27:00 Gayatri Gu [facility] HB ECG ROUTINE & RHYTHM 2021-08-30 23:04:48 [facility]HYTHM 2021-08-30 23:04:48 Gayatri Gu Un [facility] XR CHEST 1 VW 2021-08-30 00:31:51 Alvarez [facility] POCT RAPID STREP SCREEN 2021-08-30 00:24:00 Alvarez Austin [facility] FOR GROUP A [facility] GALV ONLY - INFLUENZA A B 2021-08-30 00:15:00 Alvarez Austin [facility] RSV PCR Medical Branch COVID-19 (MOLECULAR 2021-08-30 00:15:00 Alvarez Austin [facility] TESTING [facility] NUCLEIC ACID AMPLIFICATION) PREALBUMIN, SERUM 2021-08-05 10:46:00 Cesar [facility] PHOSPHORUS 2021-08-05 10:46:00 Jessica Guerrero [facility] ALBUMIN 2021-08-05 10:46:00 Jessica Guerrero [facility] MAGNESIUM 2021-08-05 10:46:[address] [facility] BASIC METABOLIC PANEL (NA, 2021-08-05 10:46:00 [facility] K, CL, CO2, GLUCOSE, BUN, Medica l Branch CREATININE, CA) CBC WITH DIFF 2021-08-05 10:46:00 Jessica Guerrero [facility] COVID-19 (ID NOW RAPID 2021-08-05 00:29:00 Jessica Guerrero [facility] TESTING Medical Branch PHOSPHORUS 2021-08-04 11:37:00 Hakeem Jo [facility] MAGNESIUM 2021-08-04 11:37:00 [facility] BASIC METABOLIC PANEL (NA, 2021-08-04 11:37:00 Hakeem Jo [facility] K, CL, CO2, GLUCOSE, BUN, [place] [facility] CREATININE, CA) CBC WITH DIFF 2021-08-04 11:37:00 Hakeem Jo [facility] PHOSPHORUS 2021-08-03 10:36:00 Hakeem Jo [facility] MAGNESIUM 2021-08-03 10:36:00 Hakeem Jo [facility] BASIC METABOLIC PANEL (NA, 2021-08-03 10:36:00 Hakeem Jo [facility] K, CL, CO2, GLUCOSE, BUN, [facility] CREATININE, CA) CBC WITH DIFF 2021-08-03 10:36:00 Hakeem Jo [facility] PHOSPHORUS 2021-08-02 10:53:00 Hakeem Jo [facility] MAGNESIUM 2021-08-02 10:53:00 Hakeem Jo [facility] BASIC METABOLIC PANEL (NA, 2021-08-02 10:53:00 Hakeem Jo [facility] K, CL, CO2, GLUCOSE, BUN, [facility] CREATININE, CA) CBC WITH DIFF 2021-08-02 10:53:00 Hakeem Jo [facility] PHOSPHORUS 2021-08-01 10:03:00 Hakeem Jo [facility] MAGNESIUM 2021-08-01 10:03:00 [facility] BASIC METABOLIC PANEL (NA, 2021-08-01 10:03:00 Hakeem Jo, U [facility] K, CL, CO2, GLUCOSE, BUN, [facility] Medica l Branch CREATININE, CA) CBC WITH DIFF 2021-08-01 10:03:00 Hakeem Jo [facility] PREALBUMIN, SERUM 2021-07-31 10:22:00 Antonino jin [facility] [place] [facility]anc h PHOSPHORUS 2021-07-31 10:22:00 [facility] MAGNESIUM 2021-07-31 10:22:00 [facility] BASIC METABOLIC PANEL (NA, 2021-07-31 10:22:00 Hakeem Jo, [facility] K, CL, CO2, GLUCOSE, BUN, [facility] [place] CREATININE, CA) CBC WITH DIFF 2021-07-31 10:22:00 Hakeem Jo [facility] COVID-19 (ID NOW RAPID 2021-07-30 06:13:00 Jonah Rees [facility] TESTING) [facility] [place] LAB ONLY COVID 2021-07-30 06:13:00 Jonah Rees [facility] INTERPRETATION [facility] CT ABDOMEN PELVIS W 2021-07-30 05:19:01 Jonah Rees [facility] CONTRAST [facility] COMP. METABOLIC PANEL 2021-07-30 03:25:00 Jonah Rees [facility] ([id number]) [facility] LACTIC ACID WHOLE BLOOD 2021-07-30 02:53:00 Jonah Rees [facility] [place] LIPASE 2021-07-30 02:52:00 Jonah Rees [facility] CBC WITH DIFF 2021-07-30 02:52:00 Jonah Rees [facility] CONSENT/REFUSAL FOR 2021-07-30 02:09:09 Doctor Unassigned, [facility] DIAGNOSIS AND TREATMENT [place] Medical Branch PHOSPHORUS 2021-07-26 12:30:00 Antonino Dietrich [facility] [place] [place] [facility] MAGNESIUM 2021-07-26 12:30:00 Antonino Dietrich [facility] [place] [facility] h BASIC METABOLIC PANEL (NA, 2021-07-26 12:30:00 Antonino Dietrich [facility] [place] K, CL, CO2, GLUCOSE, BUN, [place] Med ical Branch CREATININE, CA) CBC WITH DIFF 2021-07-26 12:30:00 Antonino Diet[facility] [place] [facility] h PHOSPHORUS 2021-07-25 11:32:00 [facility] MAGNESIUM 2021-07-25 11:32:00 [facility] BASIC METABOLIC PANEL (NA, 2021-07-25 11:32:00 Antonino jin [facility] [place] K, CL, CO2, GLUCOSE, BUN, [place] Med ical [facility] CREATININE, CA) CBC WITH DIFF 2021-07-25 11:32:00 Antonino Dietrich [facility] [place] [facility] h CBC WITH DIFF 2021-07-25 04:13:[address] [facility] PHOSPHORUS 2021-07-24 12:18:00 Cesar, [facility] MAGNESIUM 2021-07-24 12:18:00 Cesar, [facility] BASIC METABOLIC PANEL (NA, 2021-07-24 12:18:00 Cesar, Adliu [facility] [place] K, CL, CO2, GLUCOSE, BUN, Medica l Branch CREATININE, CA) COVID-19 (ID NOW RAPID 2021-07-23 15:23:00 Flaco Lemus [facility] TESTING) Medical Branch LAB ONLY COVID 2021-07-23 15:23:00 Flaco Lemus [facility] URINALYSIS 2021-07-23 12:49:00 [facility] PHOSPHORUS 2021-07-23 12:42:00 Hakeem Jo [facility] MAGNESIUM 2021-07-23 12:42:00 Hakeem Jo [facility] BASIC METABOLIC PANEL (NA, 2021-07-23 12:42:00 Beau Benedict [facility] K, CL, CO2, GLUCOSE, BUN, [place] [facility] CREATININE, CA) CBC WITH DIFF 2021-07-23 12:42:00 Hakeem Jo [facility] CT ABDOMEN PELVIS WO 2021-07-23 08:55:17 Flaco Lemus [facility] EXTERNAL PROVIDER RECORDS 2021-06-25 05:01:00 Doctor Unassigned, [facility] BASIC METABOLIC PANEL (NA, 2021-06-03 10:37:00 Shweta Anderson [facility] K, CL, CO2, GLUCOSE, BUN, Medica l Branch CREATININE, CA) BASIC METABOLIC PANEL (NA, 2021-06-02 10:54:00 Shweta Anderson [facility] K, CL, CO2, GLUCOSE, BUN, Medica l Branch CREATININE, CA) CLOSTRIDIUM DIFFICILE 2021-06-01 22:51:00 JordonWilfrid [facility] TOXIN [facility] FECAL PATHOGENS BY PCR 2021-06-01 22:51:00 [facility]na [facility] BASIC METABOLIC PANEL (NA, 2021-06-01 15:42:00 Shweta Anderson [facility] K, CL, CO2, GLUCOSE, BUN, Medica l Branch CREATININE, CA) LACTIC ACID WHOLE BLOOD 2021-06-01 05:38:00 Clementine Castellon [facility] CT ABDOMEN PELVIS W 2021-05-31 23:25:45 Willie Garrett [facility] LIPASE 2021-05-31 22:44:00 Willie Garrett [facility] TROPONIN I 2021-05-31 22:44:00 Willie Garrett [facility] COMP. METABOLIC PANEL 2021-05-31 22:44:00 Willie Garrett [facility] ([id number]) Medical Branch CBC WITH DIFF 2021-05-31 22:44:00 Willie Garrett [facility] COVID-19 (ID NOW RAPID 2021-05-31 22:44:00 Willie Garrett [facility] TESTING) Medical Branch LAB ONLY COVID 2021-05-31 22:44:00 Willie Garrett [facility] INTERPRETATION [facility] PHOSPHORUS 2021-05-21 09:03:[address] [facility] MAGNESIUM 2021-05-21 09:03:[address] [facility] BASIC METABOLIC PANEL (NA, 2021-05-21 09:03:00 [facility] K, CL, CO2, GLUCOSE, BUN, Medica l [place] CREATININE, CA) CBC WITH DIFF 2021-05-21 09:03:00 Agatha Noonan [facility] XR KUB 2021-05-20 20:02:49 Andrzej [facility] LIPASE 2021-05-20 20:00:00 Andrzej [facility] COMP. METABOLIC PANEL 2021-05-20 20:00:00 Bernardo Donnelly [facility] ([id number]) [facility] CBC WITH DIFF 2021-05-20 20:00:00 Andrzej [facility] LACTIC ACID WHOLE BLOOD 2021-05-20 20:00:00 Andrzej [facility] COVID-19 (ID NOW RAPID 2021-05-20 20:00:00 Bernardo Donnelly [facility] TESTING) Medical Branch BASIC METABOLIC PANEL (NA, 2021-05-08 10:04:00 Abu Rodrick Lora [facility] K, CL, CO2, GLUCOSE, BUN, Medica l Branch CREATININE, CA) CBC WITH DIFF 2021-05-08 10:04:00 Abu Geno [facility] XR KUB 2021-05-08 09:44:22 Beto [facility] XR ABDOMEN 1 VW 2021-05-08 05:32:36 Abu Atherrochelle, Emran [facility] CT ABDOMEN PELVIS W 2021-05-08 01:08:43 Alona Pérez [facility] CONTRAST Medical Branch HEPATIC FUNCTION PANEL 2021-05-08 00:49:00 Beto [facility] ([id number]) (ALB,T.PRO,BILI Medical Branch T,BU/BC,ALT,AST,ALK PHOS) BASIC METABOLIC PANEL (NA, 2021-05-08 00:49:00 Alona [facility] K, CL, CO2, GLUCOSE, BUN, Medica l Branch CREATININE, CA) CBC WITH DIFF 2021-05-08 00:49:00 Beto [facility] COVID-19 (ID NOW RAPID 2021-05-08 00:42:00 Beto [facility] TESTING) Medical Branch LAB ONLY COVID 2021-05-08 00:42:00 Beto [facility] INTERPRETATION [facility] NOTICE OF PRIVACY 2020-09-27 01:47:31 Doctor Unassigned, [facility] PRACTICES [place] [facility] CONSENT/REFUSAL FOR 2020-09-27 01:47:01 Doctor Unassigned, [facility] DIAGNOSIS AND TREATMENT [place] [facility] BASIC METABOLIC PANEL (NA, 2020-08-23 10:03:00 Judith Ingram [facility] K, CL, CO2, GLUCOSE, BUN, Medica l Branch CREATININE, CA) CBC WITHOUT DIFF 2020-08-23 10:03:00 Judith Ingram [facility] COVID-19 (ID NOW RAPID 2020-08-23 00:23:00 Funmilayo Pinzon [facility] TESTING) Medical Branch HB ECG ROUTINE & RHYTHM 2020-08-22 22:19:37 Funmilayo Pinzon [facility] STRIP Medical Branch HEPATIC FUNCTION PANEL 2020-08-22 22:08:00 Funmilayo Pinzon [facility] ([id number]) (ALB,T.PRO,BILI Medical Branch T,BU/BC,ALT,AST,ALK PHOS) BASIC METABOLIC PANEL (NA, 2020-08-22 22:08:00 Nallely Pinzon [facility] K, CL, CO2, GLUCOSE, BUN, Medica l Branch CREATININE, CA) CBC WITH DIFF 2020-08-22 22:08:00 Funmilayo Pinzon [facility] CT SOFT TISSUE NECK W 2020-07-10 00:21:10 Juan M Aguillon [facility] URINALYSIS 2020-07-09 23:07:00 Juan M Aguillon [facility] BASIC METABOLIC PANEL (NA, 2020-07-09 22:51:00 Kirk Aguillon [facility] K, CL, CO2, GLUCOSE, BUN, Medica l [place] CREATININE, CA) CBC WITH DIFF 2020-07-09 22:51:00 Juan M Aguillon [facility] RAPID STREP SCREEN FOR 2020-07-09 22:51:00 Juan M Aguillon [facility] GROUP A [facility] COVID-19 (ID NOW RAPID 2020-07-09 22:51:00 Juan M Aguillon [facility] TESTING) [facility] [place] CT ABDOMEN PELVIS W 2020-06-05 13:02:55 Travis Valdez [facility] URINALYSIS 2020-06-05 13:02:00 More Goetz [facility] EKG-12 LEAD 2020-06-05 11:57:46 More Goetz [facility] LIPASE 2020-06-05 11:57:00 More Goetz [facility] TROPONIN I 2020-06-05 11:57:00 More Goetz [facility] HEPATIC FUNCTION PANEL 2020-06-05 11:57:00 More Goetz [facility] ([id number]) (ALB,T.PRO,BILI [facility] T,BU/BC,ALT,AST,ALK PHOS) BASIC METABOLIC PANEL (NA, 2020-06-05 11:57:00 More Goetz [facility] K, CL, CO2, GLUCOSE, BUN, Medica [facility] [place] CREATININE, CA) CBC WITH DIFF 2020-06-05 11:57:00 More Goetz [facility] LACTIC ACID WHOLE BLOOD 2020-06-05 11:57:00 More Goetz [facility] PHOSPHORUS 2020-05-31 07:54:00 Katia [facility] MAGNESIUM 2020-05-31 07:54:00 Judy Gomezmi [facility] BASIC METABOLIC PANEL (NA, 2020-05-31 07:54:00 Katia Gomez [facility] K, CL, CO2, GLUCOSE, BUN, Medica l Branch CREATININE, CA) CBC WITH DIFF 2020-05-31 07:54:00 Judy Gomezmi [facility] IR CHANGE OF ABSCESS DRAIN 2020-05-30 19:33:43 [facility] 2020-05-30 08:19:00 Lambreton Gonzales, [facility] MAGNESIUM 2020-05-30 08:19:00 Lambreton Gonzales, [facility] BASIC METABOLIC PANEL (NA, 2020-05-30 08:19:00 Lambreton Carlos a, [employer] [place] K, CL, CO2, GLUCOSE, BUN, Rex [facility]ica [facility] Branch CREATININE, CA) PHOSPHORUS 2020-05-29 06:43:00 Lambreton Gonzales, [facility] MAGNESIUM 2020-05-29 06:43:00 Lambreton Gonzales, [facility] BASIC METABOLIC PANEL (NA, 2020-05-29 06:43:00 Lambreton Carlos a, [employer] [place] K, CL, CO2, GLUCOSE, BUN, [facility] CREATININE, CA) PHOSPHORUS 2020-05-28 09:08:00 Lambreton Gonzales, [facility] MAGNESIUM 2020-05-28 09:08:00 Lambreton Gonzales, [facility] BASIC METABOLIC PANEL (NA, 2020-05-28 09:08:00 Lambreton Carlos a, [employer] [place] K, CL, CO2, GLUCOSE, BUN, [facility] CREATININE, CA) PHOSPHORUS 2020-05-27 09:33:00 Lambreton Gonzales, [facility] MAGNESIUM 2020-05-27 09:33:00 [facility] BASIC METABOLIC PANEL (NA, 2020-05-27 09:33:00 Lambreton Carlos a, [employer] [place] K, CL, CO2, GLUCOSE, BUN, [facility] CREATININE, CA) PHOSPHORUS 2020-05-26 09:27:00 Lambreton Gonzales, [facility] MAGNESIUM 2020-05-26 09:27:00 Lambreton Gonzales, [facility] BASIC METABOLIC PANEL (NA, 2020-05-26 09:27:00 Lambreton Carlos a, [employer] [place] K, CL, CO2, GLUCOSE, BUN, [facility] CREATININE, CA) PHOSPHORUS 2020-05-25 21:42:00 Lambreton Gonzales, [facility] MAGNESIUM 2020-05-25 21:42:00 Lambreton Gonzales, [facility] BASIC METABOLIC PANEL (NA, 2020-05-25 21:42:00 Lambangeloon Carlos a, [facility] [place] K, CL, CO2, GLUCOSE, BUN, [facility] CREATININE, CA) CBC WITH DIFF 2020-05-25 21:42:00 Lambangeloon Gonzales, [facility] XR KUB 2020-05-25 20:39:54 [facility]US 2020-05-25 08:48:00 Lambreton Gonzales, [facility] MAGNESIUM 2020-05-25 08:48:00 Lambreton Gonzales, [facility] BASIC METABOLIC PANEL (NA, 2020-05-25 08:48:00 Lambreton Carlos a, [employer] [place] K, CL, CO2, GLUCOSE, BUN, [facility] CREATININE, CA) PHOSPHORUS 2020-05-24 20:41:00 Lambreton Gonzales, [facility] MAGNESIUM 2020-05-24 20:41:00 Lambreton Gonzales, [facility] BASIC METABOLIC PANEL (NA, 2020-05-24 20:41:00 Socorro escoto, [facility] K, CL, CO2, GLUCOSE, BUN, [facility]AT[facility], CA) IR CHANGE OF ABSCESS DRAIN 2020-05-24 17:57:11 Vance Stafford [facility] IR ASPIRATION ABSCESS 2020-05-24 17:24:40 Randa [facility] BULLA OR CYST BY NEEDLE [facility] ASPIRATE OR ABSCESS 2020-05-24 17:23:00 Nixon Prince [facility] CULTURE(AEROBIC/ANAEROBIC) Medic id Branch CBC WITH DIFF 2020-05-24 11:08:00 [facility]EL[facility] W 2020-05-23 15:02:24 Randa [facility] CONTRAST [facility] BASIC METABOLIC PANEL (NA, 2020-05-23 09:45:00 Sumeet [facility] K, CL, CO2, GLUCOSE, BUN, [facility] CREATININE, CA) COVID-19 (PCR MOLECULAR 2020-05-23 06:53:00 Phacathy [facility] TESTING) Medical Branch URINALYSIS 2020-05-22 21:41:00 Colette Tngeri [facility] LIPASE 2020-05-22 21:26:00 Lopez, [facility] HEPATIC FUNCTION PANEL 2020-05-22 21:26:00 LopezAlex sweeney [facility] ([id number]) (ALB,T.PRO,BILI Medical [place] T,BU/BC,ALT,AST,ALK PHOS) BASIC METABOLIC PANEL (NA, 2020-05-22 21:26:00 [facility] K, CL, CO2, GLUCOSE, BUN, Medica l Branch CREATININE, CA) CBC WITH DIFF 2020-05-22 21:26:00 Lopez, [facility] PROTHROMBIN TIME / INR 2020-05-22 21:26:00 Alex Lopez [facility] ACTIVATED PARTIAL THRMPLAS 2020-05-22 21:26:00 Lopez, [facility] XR CHEST 1 VW 2020-05-22 20:55:00 Alex Lopez [facility] HOSPITAL ADMISSION 2020-05-22 05:01:00 Doctor Unassigned, [facility] [place] Medical Branch URINALYSIS 2020-05-20 09:58:00 Jonah Rodriguez [facility] COVID-19 (ID NOW RAPID 2020-05-20 09:48:00 Jonah Rodriguez [facility] TESTING) [facility] [place] CT ABDOMEN PELVIS W 2020-05-20 04:07:43 Jonah Rodriguez [facility] CONTRAST Medical Branch LIPASE 2020-05-20 03:09:00 Jonah Rodriguez [facility] MAGNESIUM 2020-05-20 03:09:00 Jonah Rodriguez [facility] TROPONIN I 2020-05-20 03:09:00 Michael [facility] COMP. METABOLIC PANEL 2020-05-20 03:09:00 Jonah Rodriguez [facility] ([id number]) Medical Branch CBC WITH DIFF 2020-05-20 03:09:00 Michael [facility] PHOSPHORUS 2020-05-10 09:13:00 [facility] 2020-05-10 09:13:00 [facility] BASIC METABOLIC PANEL (NA, 2020-05-10 09:13:00 [facility], [facility], CO2, GLUCOSE, BUN, Medica l Branch CREATININE, CA) CBC WITH DIFF 2020-05-10 09:13:00 Randa [facility] PHOSPHORUS 2020-05-09 10:28:00 [facility] 2020-05-09 10:28:00 [facility] BASIC METABOLIC PANEL (NA, 2020-05-09 10:28:00 [facility], CL, CO2, GLUCOSE, BUN, Medica l Branch CREATININE, CA) CBC WITH DIFF 2020-05-09 10:28:00 Randa [facility] PHOSPHORUS 2020-05-08 11:18:00 Embarrass, [facility] MAGNESIUM 2020-05-08 11:18:00 [facility] BASIC METABOLIC PANEL (NA, 2020-05-08 11:18:00 [facility] K, CL, CO2, GLUCOSE, BUN, Medica l Branch CREATININE, CA) CBC WITH DIFF 2020-05-08 11:18:00 [facility] PHOSPHORUS 2020-05-07 09:21:00 [facility] MAGNESIUM 2020-05-07 09:21:00 [facility] BASIC METABOLIC PANEL (NA, 2020-05-07 09:21:00 [facility] K, CL, CO2, GLUCOSE, BUN, Medica l Branch CREATININE, CA) CBC WITH DIFF 2020-05-07 09:21:00 [facility] PHOSPHORUS 2020-05-06 09:57:00 [facility] MAGNESIUM 2020-05-06 09:57:00 [facility] BASIC METABOLIC PANEL (NA, 2020-05-06 09:57:00 [facility] K, CL, CO2, GLUCOSE, BUN, Medica l Branch CREATININE, CA) CBC WITH DIFF 2020-05-06 09:56:00 [facility] IR DRAINAGE BY CATHETER 2020-05-05 19:55:00 [facility] PERITONEAL OR Medical Branch RETROPERITONEAL BODY FLUID 2020-05-05 19:06:00 Nixon [facility] CULTURE(AEROBIC/ANAEROBIC) [facility] FUNGUS (ROUTINE) CULTURE 2020-05-05 19:06:00 Nixon [facility] BODY FLUID 2020-05-05 19:00:00 Jerri, Andi [facility] CULTURE(AEROBIC/ANAEROBIC) [facility] FUNGUS (ROUTINE) CULTURE 2020-05-05 19:00:00 Ivan Guthrie [facility] PREPARE PACKED RBC 2020-05-05 15:59:33 Hakeem Jo [facility] HB ABO GROUPING 2020-05-05 10:55:00 [facility] PREALBUMIN, SERUM 2020-05-05 08:56[facility]00 [facility] 2020-05-05 08:56:00 [facility] 2020-05-05 08:56:00 [facility] BASIC METABOLIC PANEL (NA, 2020-05-05 08:56:00 Randa [facility] K, CL, CO2, GLUCOSE, BUN, Medica l Branch CREATININE, CA) CBC WITH DIFF 2020-05-05 08:56:00 [facility]IS 2020-05-05 05:11:00 [facility] CT ABDOMEN PELVIS W 2020-05-05 04:18:56 [facility] LIPASE 2020-05-05 02:35:00 [facility] COMP. METABOLIC PANEL 2020-05-05 02:35:00 [facility] ([id number]) [facility] CBC WITH DIFF 2020-05-05 02:35:00 [facility] COVID-19 (ID NOW RAPID 2020-05-05 02:27:00 Lora Hall [facility] TESTING) Medical Branch HOSPITAL ADMISSION 2020-05-04 05:01:00 Doctor Unassigned, [facility] [place] Medical Branch CBC WITH DIFF 2020-05-01 11:32:00 [facility] 2020-05-01 11:32:00 [facility]UM 2020-05-01 11:32:00 [facility] BASIC METABOLIC PANEL (NA, 2020-05-01 11:32:00 Randa [facility] K, CL, CO2, GLUCOSE, BUN, Medica l Branch CREATININE, CA) CBC WITH DIFF 2020-04-29 11:31:00 [facility] 2020-04-29 11:31:00 [facility] 2020-04-29 11:31:00 Julio Tolentino [facility] BASIC METABOLIC PANEL (NA, 2020-04-29 11:31:00 Julio Tolentino [facility] K, CL, CO2, GLUCOSE, BUN, Medica l Branch CREATININE, CA) CBC WITH DIFF 2020-04-28 08:51:00 Becky, [facility] 2020-04-28 08:51:00 Becky, [facility] BASIC METABOLIC PANEL (NA, 2020-04-28 08:51:00 Becky, [facility] K, CL, CO2, GLUCOSE, BUN, Cathryn Medica l Branch CREATININE, CA) CBC WITH DIFF 2020-04-27 09:34:00 Becky, [facility] 2020-04-27 09:34:00 Becky, [facility] BASIC METABOLIC PANEL (NA, 2020-04-27 09:34:00 Becky, [facility] K, CL, CO2, GLUCOSE, BUN, Cathryn Medica l [facility] CREATININE, CA) CBC WITH DIFF 2020-04-26 09:27:00 Becky, [facility] MAGNESIUM 2020-04-26 09:27:00 Becky, [facility] BASIC METABOLIC PANEL (NA, 2020-04-26 09:27:00 Becky, [facility] K, CL, CO2, GLUCOSE, BUN, Cathryn [facility] CREATININE, CA) CBC WITH DIFF 2020-04-25 08:59:00 Becky, [facility] 2020-04-25 08:59:00 Becky, [facility] BASIC METABOLIC PANEL (NA, 2020-04-25 08:59:00 Becky, [facility] K, CL, CO2, GLUCOSE, BUN, Cathryn [facility]ica [facility] CREATININE, CA) CBC WITH DIFF 2020-04-24 09:44:00 Becky, [facility] MAGNESIUM 2020-04-24 09:44:00 [facility] BASIC [facility]ABOLIC PANEL (NA, 2020-04-24 09:44:00 Becky [facility] K, CL, CO2, GLUCOSE, BUN, [facility] [place] CREATININE, CA) CT ABDOMEN PELVIS W 2020-04-23 23:24:02 Grant Cheema, [facility] CONTRAST [facility] CT THORAX W CONTRAST 2020-04-23 23:24:02 Grant Cheema, [facility] COVID-19 (ID NOW RAPID 2020-04-23 15:06:00 Grant Cheema, [facility] TESTING) [facility] PREALBUMIN, SERUM 2020-04-23 13:42:00 Grant Cheema, [facility] POTASSIUM SERUM 2020-04-23 13:42:00 Becky [facility] CBC WITH DIFF 2020-04-23 10:17:00 Becky [facility] MAGNESIUM 2020-04-23 10:17:00 Becky [facility] BASIC METABOLIC PANEL (NA, 2020-04-23 10:17:00 Becky [facility] K, CL, CO2, GLUCOSE, BUN, [facility] CREATININE, CA) XR CHEST 1 VW 2020-04-23 10:03:00 Becky [facility] MAGNESIUM 2020-04-22 10:37:00 Becky [facility] BASIC METABOLIC PANEL (NA, 2020-04-22 10:37:00 Becky [facility] K, CL, CO2, GLUCOSE, BUN, [facility] [place] CREATININE, CA) CBC WITH DIFF 2020-04-22 10:30:00 Becky [facility] XR CHEST 1 VW 2020-04-22 07:30:00 Becky [facility] CBC WITH DIFF 2020-04-21 13:09:00 Becky, [facility] MAGNESIUM 2020-04-21 13:09:00 [facility], [facility] BASIC METABOLIC PANEL (NA, 2020-04-21 13:09:00 Becky [facility] K, CL, CO2, GLUCOSE, BUN, Cathryn [facility] CREATININE, CA) XR CHEST 1 2020-04-21 06:41:00 Grant Cheema [facility] XR CHEST 1 2020-04-20 11:03:41 Grant Cheema [facility] CBC WITH DIFF 2020-04-20 09:45:00 Katrina [facility] PREALBUMIN, SERUM 2020-04-20 09:45:00 [facility] 2020-04-20 09:45:00 [facility] MAGNESIUM 2020-04-20 09:45:00 Katrina [facility] BASIC METABOLIC PANEL (NA, 2020-04-20 09:45:00 Yosvany [facility] K, CL, CO2, GLUCOSE, BUN, Medica l Branch CREATININE, CA) XR CHEST 1 2020-04-19 10:13:45 [facility] CBC WITH DIFF 2020-04-19 10:10:00 Katrina [facility] PHOSPHORUS 2020-04-19 10:10:00 [facility] MAGNESIUM 2020-04-19 10:10:00 Katrina [facility] BASIC METABOLIC PANEL (NA, 2020-04-19 10:10:00 Yosvany Herndon [facility] K, CL, CO2, GLUCOSE, BUN, Medica l Branch CREATININE, CA) XR CHEST 1 2020-04-18 11:01:00 Becky [facility] CBC WITH DIFF 2020-04-18 10:19:00 Katrina [facility] PHOSPHORUS 2020-04-18 10:19:00 [facility] MAGNESIUM 2020-04-18 10:19:00 Katrina [facility] BASIC METABOLIC PANEL (NA, 2020-04-18 10:19:00 [facility]vany [facility] K, CL, CO2, GLUCOSE, BUN, [facility] CREATININE, CA) XR CHEST 1 2020-04-17 18:58:00 Becky [facility] CBC WITH DIFF 2020-04-17 09:33:00 Katrina [facility] PHOSPHORUS 2020-04-17 09:33:00 [facility] MAGNESIUM 2020-04-17 09:33:00 Katrina [facility] BASIC METABOLIC PANEL (NA, 2020-04-17 09:33:00 Katrina [facility] K, CL, CO2, GLUCOSE, BUN, [facility] CREATININE, CA) XR CHEST 1 2020-04-17 08:52:00 Grant Cheema [facility] XR CHEST 1 2020-04-16 23:45:00 Rivera [facility] BODY FLUID 2020-04-16 21:50:00 Rivera [facility] CULTURE(AEROBIC/ANAEROBIC) [facility] FUNGUS (ROUTINE) CULTURE 2020-04-16 21:50:00 Vance Stafford [facility] CYTO PLEURAL FLUID 2020-04-16 21:50:00 Rivera [facility] LDH TOTAL BODY FLUID 2020-04-16 21:50:00 [facility] AMYLASE BODY FLUID 2020-04-16 21:50:00 Rivera [facility] GLUCOSE BODY FLUID 2020-04-16 21:50:00 Rivera [facility] PH, BODY FLUID 2020-04-16 21:50:00 Rivera [facility] T.PROTEIN BODY FLUID 2020-04-16 21:50:00 Rivera [facility] BODY FLUID DIRECT COUNT 2020-04-16 21:50:00 Vance Stafford [facility] IR PLEURAL DRAINAGE WITH 2020-04-16 21:36:25 Rosaura Pena [facility] TUBE WITH IMAGING [facility] PROTHROMBIN TIME / INR 2020-04-16 16:07:00 Rosaura Pena [facility] CBC WITH DIFF 2020-04-16 10:07:00 Katrina [facility] PHOSPHORUS 2020-04-16 10:07:00 [facility] MAGNESIUM 2020-04-16 10:07:00 Katrina [facility] BASIC METABOLIC PANEL (NA, 2020-04-16 10:07:00 [facility]vany [facility] K, CL, CO2, GLUCOSE, BUN, Medica l Branch CREATININE, CA) CT ABDOMEN PELVIS W 2020-04-16 07:02:21 Grant Cheema [facility] CONTRAST [facility] CBC WITH DIFF 2020-04-15 10:02:00 [facility] PHOSPHORUS 2020-04-15 10:02:00 [facility] MAGNESIUM 2020-04-15 10:02:00 Katrina [facility] BASIC METABOLIC PANEL (NA, 2020-04-15 10:02:00 Yosvany Herndon [facility] K, CL, CO2, GLUCOSE, BUN, Medica l Branch CREATININE, CA) CBC WITH DIFF 2020-04-14 10:26:00 [facility] PHOSPHORUS 2020-04-14 10:26:00 [facility] MAGNESIUM 2020-04-14 10:26:00 Katrina [facility] BASIC METABOLIC PANEL (NA, 2020-04-14 10:26:00 Yosvany Herndon [facility] K, CL, CO2, GLUCOSE, BUN, Medica l Branch CREATININE, CA) BASIC METABOLIC PANEL (NA, 2020-04-13 23:53:00 [facility], CL, CO2, GLUCOSE, BUN, Danny [facility] CREATININE, CA) CBC WITHOUT DIFF 2020-04-13 23:53:00 Grant Cheema [facility] IR DRAINAGE BY CATHETER 2020-04-13 20:35:08 Grant Cheema [facility] PERITONEAL OR [facility] RETROPERITONEAL BODY FLUID 2020-04-13 20:05:00 Neris Grier [facility] CULTURE(AEROBIC/ANAEROBIC) Medic al Branch LDH TOTAL BODY FLUID 2020-04-13 20:05:00 Grant Cheema, [facility] GLUCOSE BODY FLUID 2020-04-13 20:05:00 Arlette Kilgore [facility] T.PROTEIN BODY FLUID 2020-04-13 20:05:00 Grant Cheema, [facility] BODY FLUID DIRECT COUNT 2020-04-13 20:05:00 Grant Cheema [facility] CBC WITH DIFF 2020-04-13 10:44:00 Katrina [facility] PHOSPHORUS 2020-04-13 10:44:00 [facility] MAGNESIUM 2020-04-13 10:44:00 [facility] BASIC METABOLIC PANEL (NA, 2020-04-13 10:44:00 Yosvany [facility] K, CL, CO2, GLUCOSE, BUN, Medica l Branch CREATININE, CA) CT ABDOMEN PELVIS W 2020-04-12 21:23:19 Melissa Kilgore [facility] CONTRAST [facility] URINALYSIS 2020-04-12 20:43:[address] [facility] URINE CULTURE 2020-04-12 20:43:[address] [facility] BLOOD CULTURE WORKUP 2020-04-12 18:51:00 [facility] GRAM NEGATIVE BLOOD 2020-04-12 18:51:00 Rosaura Pena [facility] PATHOGENS DNA [facility] PROBE-ANAEROBIC BLOOD CULTURE SCREEN 2020-04-12 18:51:[address] [facility] BLOOD CULTURE SCREEN 2020-04-12 18:50:00 Becky, Rosaura [facility] CBC WITH DIFF 2020-04-12 08:46:00 [facility] PHOSPHORUS 2020-04-12 08:46:00 [facility] MAGNESIUM 2020-04-12 08:46:00 Katrina [facility] BASIC METABOLIC PANEL (NA, 2020-04-12 08:46:00 [facility]any [facility] K, CL, CO2, GLUCOSE, BUN, Medica l Branch CREATININE, CA) CBC WITH DIFF 2020-04-11 08:54:00 [facility] PHOSPHORUS 2020-04-11 08:54:00 [facility] MAGNESIUM 2020-04-11 08:54:00 Katrina [facility] BASIC METABOLIC PANEL (NA, 2020-04-11 08:54:00 [facility]vany [facility] K, CL, CO2, GLUCOSE, BUN, Medica l Branch CREATININE, CA) CBC WITH DIFF 2020-04-10 09:49:00 [facility] PHOSPHORUS 2020-04-10 09:49:00 [facility] MAGNESIUM 2020-04-10 09:49:00 [facility] XR CHEST 1 VW 2020-04-09 11:27:00 Grant Cheema [facility] CBC WITH DIFF 2020-04-09 09:07:00 [facility] PHOSPHORUS 2020-04-09 09:07:00 [facility] MAGNESIUM 2020-04-09 09:07:00 Kat[facility] HEPATIC FUNCTION PANEL 2020-04-09 09:07:00 Grant Cheema [facility] ([id number]) (ALB,T.PRO,[facility] T,BU/BC,ALT,AST,ALK PHOS) BASIC METABOLIC PANEL (NA, 2020-04-09 09:07:00 Yosvany [facility] K, CL, CO2, GLUCOSE, BUN, Medica l Branch CREATININE, CA) AC PANEL 20 + LACTIC ACID 2020-04-08 21:11:00 [facility] (AUTOMATED) 2020-04-08 12:27:00 Bia Pedro [facility] AC PANEL 21 + LACTIC ACID 2020-04-08 09:34:00 Bigg Lawton [facility] POCT GLUCOSE (AUTOMATED) 2020-04-08 09:33:00 Bia Pedro Uni [facility] CBC WITH DIFF 2020-04-08 09:26:00 [facility] MAGNESIUM 2020-04-08 09:26:00 Kat[facility] BASIC METABOLIC PANEL (NA, 2020-04-08 09:26:00 Yosvany Herndon [facility] K, CL, CO2, GLUCOSE, BUN, Medica l Branch CREATININE, CA) POCT GLUCOSE (AUTOMATED) 2020-04-08 04:24:00 Griffin [facility]a [facility] PO[facility] GLUCOSE (AUTOMATED) 2020-04-08 00:36:00 PhadmitrikGriffina [facility] POCT GLUCOSE (AUTOMATED) 2020-04-07 21:24:00 Mayela Bia [facility] POCT GLUCOSE (AUTOMATED) 2020-04-07 16:49:00 Griffin Pedroa Uni [facility] AC PANEL 20 + LACTIC ACID 2020-04-07 14:14:00 Yosvany [facility]don [facility] LACTIC ACID WHOLE BLOOD 2020-04-07 13:53:00 [facility] ([facility]OMATED) 2020-04-07 12:50:00 Bia Pedro Uni [facility] AC PANEL 20 + LACTIC ACID 2020-04-07 11:16:00 Yosvany Herndon [facility] MAGNESIUM 2020-04-07 08:48:00 Kat[facility] BASIC METABOLIC PANEL (NA, 2020-04-07 08:48:00 Yosvany Herndon [facility] K, CL, CO2, GLUCOSE, BUN, Medica Branch CREATININE, CA) CBC WITH DIFF 2020-04-07 08:48:00 Yosvany Herndon [facility] XR CHEST 1 VW 2020-04-07 08:10:00 Becky [facility] POCT GLUCOSE (AUTOMATED) 2020-04-07 04:36:00 Bia Pedro [facility] AC PANEL 21 + LACTIC ACID 2020-04-07 02:05:00 Bigg Lawton [facility] MRSA / MSSA SCREEN BY PCR, 2020-04-07 02:05:00 Grant Santana i [facility] BLOOD CULTURE SCREEN 2020-04-07 02:05:00 Grant Cheema [facility] POCT GLUCOSE (AUTOMATED) 2020-04-07 00:37:00 Bia Pedro [facility] HCV ANTIBODY 2020-04-06 23:44:00 Grant Cheema [facility] POCT GLUCOSE (AUTOMATED) 2020-04-06 23:43:00 Bia Pedro [facility] HIV 1/2 AG-AB WITH REFLEX 2020-04-06 23:30:00 Grant Cheema [facility] POCT GLUCOSE (AUTOMATED) 2020-04-06 22:14:00 Bia Pedro [facility] ECHO ROUTINE W/DOPPLER 2020-04-06 20:25:55 Yosvany Herndon [facility] PROTHROMBIN TIME / INR 2020-04-06 19:00:00 Rosaura Pena [facility] ACTIVATED PARTIAL THRMPLAS 2020-04-06 19:00:00 Becky [facility] MAGNESIUM 2020-04-06 19:00:00 Becky [facility] BASIC METABOLIC PANEL (NA, 2020-04-06 19:00:00 Becky [facility] K, CL, CO2, GLUCOSE, BUN, [facility] CREATININE, CA) COMP. METABOLIC PANEL 2020-04-06 19:00:00 Katrina [facility] ([id number]) [facility] CBC WITH DIFF 2020-04-06 19:00:00 Katrina [facility] AC PANEL 21 + LACTIC ACID 2020-04-06 18:59:00 Simi Dennis [facility] ABG+COOX+NA+K+GLU+CA2+ 2020-04-06 16:06:00 Bia Pedro [facility] INTUBATION 2020-04-06 16:04:59 Ana Sy[facility] XR CHEST 1 VW 2020-04-06 15:43:00 [facility] SURGICAL PATHOLOGY EXAM 2020-04-06 15:12:00 Zahraa Mccabeshkaitlin Torres [facility] CENTRAL LINE 2020-04-06 14:52:37 Cynthia Herring [facility] E [facility] ARTERIAL LINE 2020-04-06 14:51:44 Ana Syed [facility] ASPIRATE OR ABSCESS 2020-04-06 14:50:29 Person, Juventino [facility] CULTURE(AEROBIC/ANAEROBIC) [facility] [employer] CULTURE 2020-04-06 14:50:29 Person, [facility] FUNGUS (ROUTINE) CULTURE 2020-04-06 14:50:29 PersonJuventino [facility] ABG+COOX+NA+K+GLU+CA2+ 2020-04-06 14:46:00 Bia Pedro [facility] HB ABO GROUPING 2020-04-06 14:39:00 Dana Sampson [facility] EXPLORATORY LAPAROTOMY 2020-04-06 13:51:00 Juventino Mccabe [facility] URINE CULTURE 2020-04-06 13:48:00 Grant Cheema [facility] XR KUB 2020-04-06 13:34:22 [facility] 1 VW 2020-04-06 13:34:22 Grant Cheema [facility] MAGNESIUM 2020-04-06 11:47:00 Becky [facility] BASIC METABOLIC PANEL (NA, 2020-04-06 11:47:00 Becky [facility] K, CL, CO2, GLUCOSE, BUN, Cathryn [facility] CREATININE, CA) CBC WITH DIFF 2020-04-06 11:47:00 [facility] X[facility] KUB 2020-04-05 21:34:47 Grant Cheema [facility] XR KUB 2020-04-05 19:41:00 Grant Cheema [facility] MAGNESIUM 2020-04-05 09:44:00 Becky [facility] BASIC METABOLIC PANEL (NA, 2020-04-05 09:44:00 Becky [facility] K, CL, CO2, GLUCOSE, BUN, Cathryn [facility] CREATININE, CA) CBC WITH DIFF 2020-04-05 09:44:00 Becky [facility] MAGNESIUM 2020-04-04 10:09:00 Becky [facility] BASIC METABOLIC PANEL (NA, 2020-04-04 10:09:00 Becky [facility] K, CL, CO2, GLUCOSE, BUN, Cathryn [facility] CREATININE, CA) CBC WITH DIFF 2020-04-04 10:09:00 Becky [facility] SURGICAL PATHOLOGY EXAM 2020-04-03 20:13:00 [facility] LAPAROSCOPIC COLECTOMY 2020-04-03 15:35:00 Mayela [facility] COLONOSCOPY 2020-04-03 15:35:00 Mayela [facility] COLECTOMY 2020-04-03 15:35:00 Mayela [facility] MAGNESIUM 2020-04-03 09:20:00 Becky [facility] BASIC METABOLIC PANEL (NA, 2020-04-03 09:20:00 Becky [facility] K, CL, CO2, GLUCOSE, BUN, [facility] CREATININE, CA) CBC WITH DIFF 2020-04-03 09:20:00 Becky [facility] HB ABO GROUPING 2020-04-02 22:45:00 Hugo Alfaro [facility] MAGNESIUM 2020-04-02 10:22:00 Becky [facility] BASIC METABOLIC PANEL (NA, 2020-04-02 10:22:00 Becky [facility] K, CL, CO2, GLUCOSE, BUN, [facility] CREATININE, CA) CBC WITH DIFF 2020-04-02 10:22:00 Becky [facility] COVID-19 (ID NOW RAPID 2020-04-01 23:02:00 Becky [facility] TESTING) [facility] URINALYSIS 2020-03-31 11:25:00 Alex Lopez [facility] CT ABDOMEN PELVIS W 2020-03-31 00:17:06 Alex Lopez [facility] CONTRAST [facility] XR CHEST 1 VW 2020-03-30 22:43:49 Alex Lopez [facility] EKG-12 LEAD 2020-03-30 22:14:24 Doctor Unassigned, [facility] PROTHROMBIN TIME / INR 2020-03-30 22:05:00 Alex Lopez [facility] ACTIVATED PARTIAL THRMPLAS 2020-03-30 22:05:00 [facility] N-TERMINAL PRO-BNP 2020-03-30 22:05:00 Alex Lopez [facility] LIPASE 2020-03-30 22:05:00 Alex Lopez [facility] TROPONIN I 2020-03-30 22:05:00 Alex Lopez [facility] HEPATIC FUNCTION PANEL 2020-03-30 22:05:00 Alex Lopez [facility] ([id number]) (ALB,T.PRO,BILI Medical Branch T,BU/BC,ALT,AST,ALK PHOS) BASIC METABOLIC PANEL (NA, 2020-03-30 22:05:00 [facility] K, CL, CO2, GLUCOSE, BUN, Medica l Branch CREATININE, CA) CBC WITH DIFF 2020-03-30 22:05:00 Colette [facility] EKG-12 LEAD 2020-03-30 22:01:44 Colette [facility] HOSPITAL ADMISSION 2020-03-30 05:01:00 Doctor Unassigned, [facility] MAGNESIUM 2020-03-26 09:57:00 Simin [facility] BASIC METABOLIC PANEL (NA, 2020-03-26 09:57:00 Simin, [facility] K, CL, CO2, GLUCOSE, BUN, Medica l Branch CREATININE, CA) CBC WITH DIFF 2020-03-26 09:57:00 Simin [facility] LACTIC ACID WHOLE BLOOD 2020-03-26 04:09:00 [facility]in [facility] (ID NOW RAPID 2020-03-26 02:01:00 Bernardo Donnelly [facility] TESTING) [facility] CT ABDOMEN PELVIS W 2020-03-26 01:17:18 Bernardo Donnelly [facility] CONTRAST Medical Branch PHOSPHORUS 2020-03-26 00:39:00 Simin [facility] MAGNESIUM 2020-03-26 00:39:00 Simin [facility] HEPATIC FUNCTION PANEL 2020-03-26 00:39:00 Bernardo Donnelly [facility] ([id number]) (ALB,T.PRO,[facility] Medical Branch T,BU/BC,ALT,AST,ALK PHOS) BASIC METABOLIC PANEL (NA, 2020-03-26 00:39:00 Bernardo [facility]ly [facility] K, CL, CO2, GLUCOSE, BUN, Medica l Branch CREATININE, CA) CBC WITH DIFF 2020-03-26 00:39:00 Donnelly, [facility] EXTRA TUBE LT. BLUE 2020-03-26 00:39:00 Bernardo Donnelly [facility] HOSPITAL ADMISSION 2020-03-25 05:01:00 Doctor Unassigned, [facility] PROTHROMBIN TIME / INR 2020-03-03 04:27:00 Ori Persaud [facility] ACTIVATED PARTIAL THRMPLAS 2020-03-03 04:27:00 Zahraa Persaud [facility] XR ABDOMEN ACUTE SERIES 2020-03-03 02:15:00 Shy [facility] PHOSPHORUS 2020-03-03 01:22:00 Ori Persaud [facility] MAGNESIUM 2020-03-03 01:22:00 Burt Avendaño [facility] HEPATIC FUNCTION PANEL 2020-03-03 01:22:00 Shy [facility] ([id number]) (ALB,T.PRO,BILI [facility] T,BU/BC,ALT,AST,ALK PHOS) BASIC METABOLIC PANEL (NA, 2020-03-03 01:22:00 Shy [facility] K, CL, CO2, GLUCOSE, BUN, Medica l Branch CREATININE, CA) CBC WITH DIFFERENTIAL 2020-03-03 01:22:00 Shy [facility] URINALYSIS 2020-03-03 01:22:00 Shy [facility] LACTIC ACID WHOLE BLOOD 2020-03-03 01:22:00 Shy [facility] COVID-19 (ID NOW RAPID 2020-03-03 01:22:00 Begum, [facility] TESTING) [facility] GALV/CLC ONLY - URINE DRUG 2020-02-27 20:02:00 [facility] (IMMUNOASSAY) - [facility] COMPREHENSIVE DRUG SCREEN FREE T4 2020-02-27 17:48:00 [facility] THYROID STIMULATING 2020-02-27 17:48:00 [facility] HORMONE [facility] FREE T3 2020-02-27 17:48:00 [facility] Medical [facility] CT ABDOMEN PELVIS W 2020-02-26 18:27:28 Alondra Fay [facility] CONTRAST [facility] COVID-19 (ID NOW RAPID 2020-02-26 06:41:00 Shy [facility] TESTING) [facility] XR ABDOMEN ACUTE SERIES 2020-02-26 04:48:30 Begum, [facility] LIPASE 2020-02-26 03:35:00 [facility] 2020-02-26 03:35:00 Begum, [facility] ([id number]) (ALB,T.PRO,BILI [facility] T,BU/BC,ALT,AST,ALK PHOS) BASIC METABOLIC PANEL (NA, 2020-02-26 03:35:00 Begum, [facility] K, CL, CO2, GLUCOSE, BUN, Medica l Branch CREATININE, CA) CBC WITH DIFFERENTIAL 2020-02-26 03:35:00 Shy [facility] LACTIC ACID WHOLE BLOOD 2020-02-26 03:35:00 Begum, [facility] EXTRA TUBE LT. BLUE 2020-02-26 03:35:00 Shy [facility] MAGNESIUM 2020-02-03 16:38:00 [facility] BASIC METABOLIC PANEL (NA, 2020-02-03 16:38:00 [facility], CL, CO2, GLUCOSE, BUN, Medica l Branch CREATININE, CA) XR KUB 2020-01-31 16:59:00 [facility] BASIC METABOLIC PANEL (NA, 2020-01-31 06:15:00 Kirill Henson [facility] K, CL, CO2, GLUCOSE, BUN, Medica l Branch CREATININE, CA) CBC WITH DIFFERENTIAL 2020-01-31 06:15:00 Kirill Henson [facility] BASIC METABOLIC PANEL (NA, 2020-01-29 10:06:00 Judith Ingram [facility] K, CL, CO2, GLUCOSE, BUN, Medica l Branch CREATININE, CA) CBC WITH DIFFERENTIAL 2020-01-29 10:06:00 Judith Ingram [facility] COVID-19 (PCR MOLECULAR 2020-01-29 03:56:00 Liz [facility] TESTING) Medical Branch LACTIC ACID WHOLE BLOOD 2020-01-29 03:55:00 Bernardo Donnelly [facility] EXTRA TUBE LAV 2020-01-29 03:55:00 Liz [facility] o f [facility] EXTRA TUBE LT. BLUE 2020-01-29 03:55:00 Liz [facility] EXTRA TUBE LT. GREEN 2020-01-29 03:55:00 Liz [facility] URINALYSIS 2020-01-29 01:35:00 Silvia Jurado [facility] COVID-19 (ID NOW RAPID 2020-01-29 01:32:00 Bernardo Donnelly [facility] TESTING) Medical Branch CT ABDOMEN PELVIS W 2020-01-28 23:53:23 Silvia Jurado I [facility] CONTRAST [facility] LIPASE 2020-01-28 23:19:00 Silvia Jurado I [facility] HEPATIC FUNCTION PANEL 2020-01-28 23:19:00 Silvia Jurado [facility] ([id number]) (ALB,T.PRO,BILI [facility] T,BU/BC,ALT,AST,ALK PHOS) BASIC METABOLIC PANEL (NA, 2020-01-28 23:19:00 Sondra Jurado I [facility] K, CL, CO2, GLUCOSE, BUN, Medica l Branch CREATININE, CA) CBC WITH DIFFERENTIAL 2020-01-28 23:19:00 Silvia Jurado I [facility] HOSPITAL ADMISSION 2020-01-28 05:01:00 Doctor Unassigned, [facility] BASIC METABOLIC PANEL (NA, 2020-01-26 18:06:00 Sarah Duval [facility] K, CL, CO2, GLUCOSE, BUN, Medica l Branch CREATININE, CA) MAGNESIUM 2020-01-26 08:17:00 Liz [facility] o [facility] XR KUB 2020-01-26 06:00:00 Helene Griffin [facility] PHOSPHORUS 2020-01-25 09:43:00 [facility] (ID NOW RAPID 2020-01-25 04:31:00 Shy [facility] TESTING) [facility] [place] LACTIC ACID WHOLE BLOOD 2020-01-25 04:27:00 Shy [facility] CT ABDOMEN PELVIS W 2020-01-25 02:15:22 Shy [facility] CONTRAST [facility] URINALYSIS 2020-01-25 01:05:00 Shy [facility] LIPASE 2020-01-25 00:42:00 Begum, [facility] HEPATIC FUNCTION PANEL 2020-01-25 00:42:00 Shy [facility] ([id number]) (ALB,T.PRO,BILI [facility] [place] T,BU/BC,ALT,AST,ALK PHOS) BASIC METABOLIC PANEL (NA, 2020-01-25 00:42:00 Sabi [facility] K, CL, CO2, GLUCOSE, BUN, Medica l Branch CREATININE, CA) CBC WITH DIFFERENTIAL 2020-01-25 00:42:00 Shy [facility] [id number] 2020-01-09 00:00:00 BG.[facility] EXTERNAL PROVIDER RECORDS 2019-12-28 05:01:00 Doctor Unassigned, [facility] Plan of Care Planned Activity Planned Date Details Comments Source Future Scheduled 2029-03-23 Screening for malignant [facility] 00:00:00 neoplasm of colon Medical Ce nter (procedure) [code = 872752753] Future Scheduled 2029-03-23 Screening for malignant [facility] 00:00:00 neoplasm of colon Medical Ce nter (procedure) [code = 004795819] Future Scheduled 2029-03-23 Screening for malignant [facility] 00:00:00 neoplasm of colon Medical Ce nter (procedure) [code = 589799178] Future Scheduled 2029-03-23 Screening for malignant [facility] 00:00:00 neoplasm of colon Medical Ce nter (procedure) [code = 281996844] Future Scheduled 2029-03-23 Screening for malignant [facility] 00:00:00 neoplasm of colon Medical Ce nter (procedure) [code = 674811602] Future Scheduled 2029-03-23 Screening for malignant [facility] 00:00:00 neoplasm of colon Medical Ce nter (procedure) [code = 175422085] Future Scheduled 2029-03-23 Screening for malignant [facility] 00:00:00 neoplasm of colon Medical Ce nter (procedure) [code = 878467832] Future Scheduled 2029-03-23 Screening for malignant [facility] 00:00:00 neoplasm of colon Medical Ce nter (procedure) [code = 097495155] Future Scheduled 2029-03-23 Screening for malignant [facility] 00:00:00 neoplasm of colon Medical Ce nter (procedure) [code = 719571889] Future Scheduled 2029-03-23 Screening for malignant [facility] 00:00:00 neoplasm of colon Medical Ce nter (procedure) [code = 835373166] Future Scheduled 2029-03-23 Screening for malignant [facility] 00:00:00 neoplasm of colon Medical Ce nter (procedure) [code = 265340762] Future Scheduled 2029-03-23 Screening for malignant [facility] 00:00:00 neoplasm of colon Medical Ce nter (procedure) [code = 199290813] Future Scheduled 2029-03-23 Screening for malignant [facility] 00:00:00 neoplasm of colon Medical Ce nter (procedure) [code = 298329482] Future Scheduled 2029-03-23 Screening for malignant [facility] 00:00:00 neoplasm of colon Medical Ce nter (procedure) [code = 726003859] Future Scheduled 2029-03-23 Screening for malignant [facility] 00:00:00 neoplasm of colon Medical Ce nter (procedure) [code = 654856815] Future Scheduled 2029-03-23 Screening for malignant [facility] 00:00:00 neoplasm of colon Medical Ce nter (procedure) [code = 780410259] Future Scheduled 2029-03-23 Screening for malignant [facility] 00:00:00 neoplasm of colon Medical Ce nter (procedure) [code = 409500828] Future Scheduled 2029-03-23 Screening for malignant [facility] 00:00:00 neoplasm of colon Medical Ce nter (procedure) [code = 708505935] Future Scheduled 2029-03-23 Screening for malignant [facility] 00:00:00 neoplasm of colon Medical Ce nter (procedure) [code = 846986282] Future Scheduled 2029-03-23 Screening for malignant [facility] 00:00:00 neoplasm of colon Medical Ce nter (procedure) [code = 718886776] Future Scheduled 2029-03-23 Screening for malignant [facility] 00:00:00 neoplasm of colon Medical Ce nter (procedure) [code = 028579368] Future Scheduled 2029-03-23 Screening for malignant [facility] 00:00:00 neoplasm of colon Medical Ce nter (procedure) [code = 317177019] Future Scheduled 2029-03-23 Screening for malignant [facility] 00:00:00 neoplasm of colon Medical Ce nter (procedure) [code = 433036393] Future Scheduled 2029-03-23 Screening for malignant [facility] 00:00:00 neoplasm of colon Medical Ce nter (procedure) [code = 343842182] Future Scheduled 2029-03-23 Screening for malignant [facility] 00:00:00 neoplasm of colon Medical Ce nter (procedure) [code = 680249321] Future Scheduled 2029-03-23 Screening for malignant [facility] 00:00:00 neoplasm of colon Medical Ce nter (procedure) [code = 608354014] Future Scheduled 2029-03-23 Screening for malignant [facility] 00:00:00 neoplasm of colon Medical Ce nter (procedure) [code = 163339474] Future Scheduled 2029-03-23 Screening for malignant [facility] 00:00:00 neoplasm of colon Medical Ce nter (procedure) [code = 163454931] Future Scheduled 2029-03-23 Screening for malignant [facility] 00:00:00 neoplasm of colon Medical Ce nter (procedure) [code = 325079481] Future Scheduled 2029-03-23 Screening for malignant [facility] 00:00:00 neoplasm of colon Medical Ce nter (procedure) [code = 753603683] Future Scheduled 2029-03-23 Screening for malignant [facility] 00:00:00 neoplasm of colon Medical Ce nter (procedure) [code = 842239138] Future Scheduled 2022-05-24 IMM Influenza Seasonal H [...] 00:00:00 neoplasm of colon (procedure) [code = 222498523] Future Scheduled 2020-02-14 Screening for malignant [facility] 00:00:00 neoplasm of colon (procedure) [code = 306035008] Future Scheduled 2020-02-14 Screening for malignant [facility] 00:00:00 neoplasm of colon (procedure) [code = 876746301] Future Scheduled 2020-02-14 Screening for malignant [facility] 00:00:00 neoplasm of colon (procedure) [code = 755735580] Future Scheduled 2020-02-14 Screening for malignant [facility] 00:00:00 neoplasm of colon (procedure) [code = 307964223] Future Scheduled 2020-02-14 Screening for malignant [facility] 00:00:00 neoplasm of colon (procedure) [code = 124098313] Future Scheduled 2020-02-14 Screening for malignant [facility] 00:00:00 neoplasm of colon (procedure) [code = 907738019] Future Scheduled 2020-02-14 Screening for malignant [facility] 00:00:00 neoplasm of colon (procedure) [code = 116271279] Future Scheduled 2020-02-14 Screening for malignant [facility] 00:00:00 neoplasm of colon (procedure) [code = 144925122] Future Scheduled 2020-02-14 Screening for malignant [facility] 00:00:00 neoplasm of colon (procedure) [code = 421648842] Future Scheduled 2020-02-14 Screening for malignant [facility] 00:00:00 neoplasm of colon (procedure) [code = 059561396] Future Scheduled 2020-02-14 Screening for malignant [facility] 00:00:00 neoplasm of colon (procedure) [code = 571237112] Future Scheduled 2020-02-14 Screening for malignant [facility] 00:00:00 neoplasm of colon (procedure) [code = 016401080] Future Scheduled 2020-02-14 Screening for malignant [facility] 00:00:00 neoplasm of colon (procedure) [code = 874364254] Future Scheduled 2020-02-14 SHINGLES VACCINES (1 of [...] 00:00:00 neoplasm of colon (procedure) [code = 031589942] Future Scheduled 2005 Lipid panel (procedure) [facility] 00:00:00 [code = 47556566] Medical Ce nter Future Scheduled 2005 Lipid panel (procedure) [facility] 00:00:00 [code = 28772515] Medical Ce nter Future Scheduled 2005 Lipid panel (procedure) [facility] 00:00:00 [code = 75540783] Medical Ce nter Future Scheduled 2005 Lipid panel (procedure) [facility] 00:00:00 [code = 87511869] Medical Ce nter Future Scheduled 2005 Lipid panel (procedure) [facility] 00:00:00 [code = 76226481] Medical Ce nter Future Scheduled 2005 Lipid panel (procedure) [facility] 00:00:00 [code = 94743200] Medical Ce nter Future Scheduled 2005 Lipid panel (procedure) [facility] 00:00:00 [code = 52903859] Medical Ce nter Future Scheduled 2005 Lipid panel (procedure) [facility] 00:00:00 [code = 21261806] Medical Ce nter Future Scheduled 2005 Lipid panel (procedure) [facility] 00:00:00 [code = 91334382] Medical Ce nter Future Scheduled 2005 Lipid panel (procedure) [facility] 00:00:00 [code = 72539416] Medical Ce nter Future Scheduled 2005 Lipid panel (procedure) [facility] 00:00:00 [code = 54533416] Medical Ce nter Future Scheduled 2005 Lipid panel (procedure) [facility] 00:00:00 [code = 46424956] Medical Ce nter Future Scheduled 2005 Lipid panel (procedure) [facility] 00:00:00 [code = 90998162] Medical Ce nter Future Scheduled 2005 Lipid panel (procedure) [facility] 00:00:00 [code = 76366270] Medical Ce nter Future Scheduled 2005 Lipid panel (procedure) [facility] 00:00:00 [code = 14727701] Medical Ce nter Future Scheduled 2005 Lipid panel (procedure) [facility] 00:00:00 [code = 84537219] Medical Ce nter Future Scheduled 1989 DTAP/TDAP/TD [...] [facility]] Future Scheduled [address] [facility] 00:00:00 [facility] Screening (12+) [code = Tobacco Cessation Counseling and Screening (12+)] Future Scheduled 1970 COVID-19 Vaccine (#1) Momin [...] colon Medical Ce nter (procedure) [code = 675209763] Future Scheduled 1970 Screening for malignant [facility] 00:00:00 neoplasm of colon Medical Ce nter (procedure) [code = 745740048] Future Scheduled 1970 Sigmoidoscopy [facility] Future Scheduled 1970 CT Colonography (combo) [facility] 00:00:00 [code = CT Colonography [facility] (combo)] Future Scheduled 1970 Screening for malignant [facility] 00:00:00 neoplasm of colon Medical Ce nter (procedure) [code = 762892374] Future Scheduled 1970 Screening for malignant [facility] 00:00:00 neoplasm of colon Medical Ce nter (procedure) [code = 612050944] Future Scheduled 1970 Sigmoidoscopy [facility]code = [facility]] [facility] Future Scheduled 1970 CT Colonography (combo) [facility] 00:00:00 [code = [facility] Future Scheduled 1970 Screening for malignant [facility] 00:00:00 neoplasm of colon Medical Ce nter (procedure) [code = 777796028] Future Scheduled 1970 Screening for malignant [facility] 00:00:00 neoplasm of colon Medical Ce nter (procedure) [code = 128353810] Future Scheduled 1970 Sigmoidoscopy [facility]code = [facility]oscopy] [facility] Future Scheduled 1970 CT Colonography (combo) [facility] 00:00:00 [code = CT [facility] ([facility])] Future Scheduled 1970 Screening for malignant [facility] 00:00:00 neoplasm of colon Medical Ce nter (procedure) [code = 613344922] Future Scheduled 1970 Screening for malignant [facility] 00:00:00 neoplasm of colon Medical Ce nter (procedure) [code = 526761510] Future Scheduled 1970 Sigmoidoscopy [facility]code = [facility] S[facility]oidoscopy] [facility] Future Scheduled 1970 CT Colonography (combo) [facility] 00:00:00 [code = CT [facility] ([facility])] Future Scheduled 1970 Screening for malignant [facility] 00:00:00 neoplasm of colon Medical Ce nter (procedure) [code = 037555482] Future Scheduled 1970 Screening for malignant [facility] 00:00:00 neoplasm of colon Medical Ce nter (procedure) [code = 403779100] Future Scheduled 1970 Sigmoidoscopy [facility]code = [facility] S[facility]oidoscopy] [facility] Future Scheduled 1970 CT Colonography (combo) [facility] 00:00:00 [code = CT [facility] ([facility])] Future Scheduled 1970 Screening for malignant [facility] 00:00:00 neoplasm of colon Medical Ce nter (procedure) [code = 429148119] Future Scheduled 1970 Screening for malignant [facility] 00:00:00 neoplasm of colon Medical Ce nter (procedure) [code = 534687163] Future Scheduled 1970 Sigmoidoscopy [facility]code = [facility]] [facility] Cent[facility] Future Scheduled 1970 CT Colonography (combo) [facility] 00:00:00 [code = CT [facility] ([facility])] Future Scheduled 1970 Screening for malignant [facility] 00:00:00 neoplasm of colon Medical Ce nter (procedure) [code = 932528109] Future Scheduled 1970 Screening for malignant [facility] 00:00:00 neoplasm of colon Medical Ce nter (procedure) [code = 648213811] Future Scheduled 1970 Sigmoidoscopy [code = [facility] S[facility]oidoscopy] [facility] Cent[facility] Future Scheduled 1970 CT Colonography (combo) [facility] 00:00:00 [code = CT [facility] ([facility])] Future Scheduled 1970 Screening for malignant [facility] 00:00:00 neoplasm of colon Medical Ce nter (procedure) [code = 443685020] Future Scheduled 1970 Screening for malignant [facility] 00:00:00 neoplasm of colon Medical Ce nter (procedure) [code = 368318135] Future Scheduled 1970 Sigmoidoscopy [code = [facility] S[facility]oidoscopy] [facility] Cent[facility] Future Scheduled 1970 CT Colonography (combo) [facility] 00:00:00 [code = CT [facility] ([facility])] Future Scheduled 1970 Screening for malignant [facility] 00:00:00 neoplasm of colon Medical Ce nter (procedure) [code = 164635026] Future Scheduled 1970 Screening for malignant [facility] 00:00:00 neoplasm of colon Medical Ce nter (procedure) [code = 565498643] Future Scheduled 1970 Sigmoidoscopy [code = [facility] S[facility]oidoscopy] Medical Cent[facility] Future Scheduled 1970 CT Colonography (combo) [facility] 00:00:00 [code = CT [facility] ([facility])] Future Scheduled 1970 Screening for malignant [facility] 00:00:00 neoplasm of colon Medical Ce nter (procedure) [code = 523218370] Future Scheduled 1970 Screening for malignant [facility] 00:00:00 neoplasm of colon Medical Ce nter (procedure) [code = 528997142] Future Scheduled 1970 Sigmoidoscopy [code = [facility]oscopy] Medical Cent[facility] Future Scheduled 1970 CT Colonography (combo) [facility] 00:00:00 [code = CT [facility] ([facility])] Future Scheduled 1970 Screening for malignant [facility] 00:00:00 neoplasm of colon Medical Ce nter (procedure) [code = 697769112] Future Scheduled 1970 Screening for malignant [facility] 00:00:00 neoplasm of colon Medical Ce nter (procedure) [code = 773272157] Future Scheduled 1970 Sigmoidoscopy [code = [facility] S[facility]oidoscopy] [facility] Future Scheduled 1970 CT Colonography (combo) [facility] 00:00:00 [code = CT [facility] ([facility])] Future Scheduled 1970 Screening for malignant [facility] 00:00:00 neoplasm of colon Medical Ce nter (procedure) [code = 300642081] Future Scheduled 1970 Screening for malignant [facility] 00:00:00 neoplasm of colon Medical Ce nter (procedure) [code = 087784746] Future Scheduled 1970 Sigmoidoscopy [code = [facility] S[facility]oscopy] Medical Cent[facility] Future Scheduled 1970 CT Colonography (combo) [facility] 00:00:00 [code = CT [facility] ([facility])] Future Scheduled 1970 Screening for malignant [facility] 00:00:00 neoplasm of colon Medical Ce nter (procedure) [code = 110737645] Future Scheduled 1970 Screening for malignant [facility] 00:00:00 neoplasm of colon Medical Ce nter (procedure) [code = 739630859] Future Scheduled 1970 Sigmoidoscopy [code = [facility] S[facility]oidoscopy] [facility] Future Scheduled 1970 CT Colonography (combo) [facility] 00:00:00 [code = CT Colonography [facility] (combo)] Future Scheduled 1970 Screening for malignant [facility] 00:00:00 neoplasm of colon Medical Ce nter (procedure) [code = 596839233] Future Scheduled 1970 Screening for malignant [facility] 00:00:00 neoplasm of colon Medical Ce nter (procedure) [code = 698225552] Future Scheduled 1970 Sigmoidoscopy [code = [facility] Sigmoidoscopy] Medical Seda r Future Scheduled 1970 CT Colonography (combo) [facility] 00:00:00 [code = CT Colonography [facility] (combo)] Future Scheduled 1970 CT Colonography (combo) [facility] 00:00:00 [code = CT Colonography [facility] (combo)] Future Scheduled 1970 Screening for malignant [facility] 00:00:00 neoplasm of colon Medical Ce nter (procedure) [code = 926438489] Future Scheduled 1970 Screening for malignant [facility] 00:00:00 neoplasm of colon Medical Ce nter (procedure) [code = 840666661] Future Scheduled 1970 Sigmoidoscopy [facility]code = [facility] S[facility]oidoscopy] Medical [facility] Encounters Start End Encounter Admission Attending Care Care Encounter Source Date/Time Date/Time Type Type Clinicians Facility Department ID 2021-06-25 Emergency [facility] [id number] Univers 05:25:12 ity of [facility] 2021-06-25 Emergency [facility] [id number] Univers 01:41:18 ity of [facility] 2021-06-24 Emergency [facility] [id number] Univers 22:38:17 ity of [facility] 2021-06-22 Emergency [facility] [id number] Univers 21:40:44 ity of [facility] 2021-06-22 Emergency [facility] [id number] Univers 13:55:03 ity of [facility] 2021-06-22 Emergency [facility] [id number] Univers 05:54:16 ity of [facility] 2021-06-21 Emergency [facility] [id number] Univers 22:33:24 ity of [facility] 2021-06-21 Emergency [facility] [id number] Univers 22:33:24 ity of [facility] 2021-06-21 Emergency [facility] [id number] Univers 22:22:08 ity of [facility] 2021-06-21 Emergency [facility] [id number] Univers 20:04:56 ity of [facility] 2021-06-21 Emergency [facility] [id number] Univers 19:53:56 ity of [facility] 2021-06-21 Emergency [facility] [id number] Univers 19:37:27 ity of [facility] 2021-06-21 Emergency [facility] [id number] Univers 19:36:41 ity of [facility] 2021-06-21 Emergency [facility] [id number] Univers 17:11:26 ity of [facility] 2021-06-21 Emergency [facility] [id number] Univers 16:44:38 ity of [facility] 2021-06-21 Emergency [facility] [id number] Univers 11:19:16 ity of [facility] 2021-06-21 Emergency [facility] [id number] Univers 10:16:06 ity of [facility] 2021-06-21 Emergency [facility] [id number] Univers 06:08:42 ity of [facility] 2021-06-21 Emergency [facility] [id number] Univers 04:43:23 ity of [facility] 2021-06-21 Emergency [facility] [id number] Univers 04:42:49 ity of [facility] 2021-06-20 Emergency X YURIY, [facility] PAKO [id number] Univers 18:31:02 OSMAR y [facility] 2020-02-23 Inpatient HCAPM LENNY [id number] [facility] 18:42:00 89 [facility] [place] 2020-02-17 Inpatient SEAN Nova, HCAPM MAS [id number] [facility] 00:22:00 Oladipo 75 [facility] [place] 2020-01-05 Inpatient MORIS Perea, HCAPM MEDI.01 [id number] [facility] 20:23:00 Mark 40 [facility] 2019-12-13 Inpatient HCAMN JULIA [id number] [facility] 17:52:00 47 [facility] 2022-05-22 2022-05-22 Transition MELANIE Vallejo [id number] Univers 00:00:00 00:00:00 of Care Emili RECINOS [id number] [place] [id number] [facility] [address] [place] 2022-05-19 2022-05-21 Inpatient X [facility]M [facility] URI [id number] Univers 19:15:00 15:48:00 PATEL ity [facility] 2022-05-19 2022-05-21 [facility] Joel Baez [facility] 1.2.840. 114 [id number] Univers 19:15:00 15:48:00 Encounter Eros Rios 350.1.13.10 ity Patel Rangel 4.2.7.2.686 [facility] [id number] [facility] [address] 2022-05-21 2022-05-21 Patient Saira Goodman MELANIE 1.2.840.114 [id number] Univers 00:00:00 00:00:00 Outreach E GRISEL 350.1.13.10 [place] [id number] [facility] [address] [facility] 2022-04-14 2022-04-14 Transition MELANIE Valdes 1.2.840.114 [id number] Univers 00:00:00 00:00:00 of Care Miryam RECINOS 350.1.13.10 [place] [id number] [facility] [address] [facility] 2022-04-09 2022-04-10 Emergency X GEOVANNA, [facility] ERT [id number] Univers 20:38:00 00:14:00 FOLUSHO ity of [facility] 2022-04-09 2022-04-10 Emergency [facility] 1.2.840.114 [id number] Univers 20:38:00 00:14:00 Folzulyo F JAIME 350.1.13.10 ity of [facility] [place] [id number] [facility] 0[address] 2022-04-09 2022-04-09 Transition MELANIE Valdes 1.2.840.114 [id number] Univers 00:00:00 00:00:00 of Care Miryam RECINOS 350.1.13.10 [place] [id number] [facility] [address] [facility] 2022-04-02 2022-04-08 Inpatient X [facility] URI [id number] Univers 11:42:00 12:30:00 rai LORA [facility] 2022-04-02 2022-04-08 Hospital Rekha Sheehan [facility] 1.2.840.11 [id number] Univers 11:42:00 12:30:00 Encounter Zahraa Thomasshua [facility] 350.1.13.10 ity of [facility] Diogo Lora 4.2.7.2.686 [place] [id number] [address] ([facility]) 2022-03-29 2022-03-29 Emergency EM White, HCACL AERS [id number] [facility] 14:26:00 16:45:00 Sabi Adams [facility] 2022-03-29 2022-03-29 Emergency EM White, HCACL HCACL [id number] [facility] 14:26:00 16:45:00 Sabi Pollock [facility] 2022-03-25 2022-03-26 Inpatient E RICHARD [facility] 7503 [facility] 13:38:00 10:16:00 , YESSI 2022-03-15 2022-03-18 Emergency E RADHA [facility]2 [facility] 13:36:00 18:59:00 JULIO 2022-03-13 2022-03-13 Emergency [facility] [id number] Lynne 15:33:00 20:25:00 [facility] 2022-03-13 2022-03-13 Emergency [facility] [id number] Lynne 15:33:00 20:25:00 [facility] 2022-03-13 2022-03-13 Outpatient RONALD, [facility] [id number] Lynne 00:00:00 00:00:00 [facility] 2022-03-06 2022-03-09 Inpatient ER [facility] Emergency 20 [id number] [facility] 12:16:00 12:55:00 2022-03-06 2022-03-[address] [facility] 1 [id number] [facility] 12:16:00 12:55:00 Encounter Norma Montalvo Fang-Ying M edical Heinen[facility] 2022-03-06 2022-03-09 [facility] [id number] 12:16:00 12:55:00 Encounter Norma Montalvo Fang-Ying M edical Heinen, [facility] Colin 2022-03-06 2022-03-06 Outpatient [facility] [id number] [facility] 00:00:00 23:59:00 Jennifer funk of Medicin e 2022-03-06 2022-03-[address] [facility] [id number] 00:00:00 00:00:00 Only [facility] 2022-03-06 2022-03-06 Travel [facility] [id number] [facility] 00:[facility] 00:00:00 [facility] 2022-03-06 2022-03-[address] [facility] [id number] 00:00:00 00:00:00 Only [facility] 2022-03-06 2022-03-06 Travel [facility] [id number] [facility] 00:00:00 00:00:00 [facility] 2022-02-18 2022-02-20 Emergency Mitzi Carbajal [facility] [id number] [place] 13:58:00 11:55:00 [facility], [facility] Laz Blake, [facility] 2022-02-18 2022-02-20 Emergency Farhan Carbajalzad [facility] [id number] [place] 13:58:00 11:55:00 [facility], Rufino Laz Blake, Fannie 2022-02-18 2022-02-18 Emergency STEVECOX MONETT [id number] [place] 15:19:05 15:23:18 [facility] 2022-02-18 2022-02-18 Outpatient 1 TEJASCOX MONETT [id number] [place] 13:58:00 13:58:00 [facility] 2022-02-18 2022-02-18 [facility] [id number] [place] 00:00:00 00:00:00 , OSCAR Frances boss 2022-02-07 2022-02-11 [facility] [id number] [place] 13:40:00 13:22:00 [facility] Jamilahfrederic Teresa 2022-02-07 2022-02-11 [facility] [id number] [place] 13:40:00 13:22:00 [facility] Berlinfrederic, Teresa 2022-02-07 2022-02-07 Outpatient 1 JANEL ROSASBLANCHE [facility] [id number] [place] 13:40:00 13:40:00 [facility] 2022-01-30 2022-01-30 Emergency SEAN Pacheco [facility] [id number] [facility] 17:02:00 18:29:00 [facility] 2022-01-30 Emergency SEAN Pacheco, [facility] [id number] [facility] 17:02:00 18:29:00 Dwain Ortiz [facility] 2022-01-22 2022-01-22 Emergency [facility] [id number] Lynne 17:24:00 20:39:00 [facility] 2022-01-22 2022-01-22 Emergency [facility] [id number] Lynne 17:24:00 20:39:00 [facility] 2022-01-16 2022-01-21 Emergency Raymon Martin [facility] [id number] Lynne 11:04:00 18:08:00 Karin Bassett Julian C Agrawal, Parth P 2022-01-16 2022-01-21 Emergency Raymon Martin [facility] [id number] Lynne 11:04:00 18:08:00 Karin Bassett Julian C Agrawal [facility] P 2022-01-19 2022-01-19 Outpatient [facility] [id number] Lynne 12:34:08 13:29:31 [facility] 2022-01-16 2022-01-16 Outpatient [facility] [id number] Lynne 19:42:28 20:01:28 [facility] 2022-01-16 2022-01-16 Outpatient 1 DANYELLE [facility] [id number] Lynne 11:04:00 11:04:00 KARIN Daniels 2022-01-10 2022-01-11 Emergency Bert Reed [facility] [id number] Maged 10:58:00 11:20:00 Helene Anderson [facility] Merissa Richards 2022-01-10 2022-01-11 Emergency Bert Reed [facility] [id number] Maged 10:58:00 11:20:00 Helene Anderson [facility] Merissa Richards Q 2022-01-10 2022-01-10 Outpatient 1 JUSTIN [facility] [id number] Lynne 10:58:00 10:58:00 [facility] 2022-01-08 2022-01-09 Emergency [facility] [id number] Lynne 17:57:00 02:50:00 Health 2022-01-08 2022-01-09 Emergency [facility] [id number] Lynne 17:57:00 02:50:00 [facility] 2022-01-08 2022-01-08 Emergency [facility] [id number] Lynne 21:40:34 21:50:19 [facility] 2021-09-23 2021-09-23 Emergency Raffaele Pitts [facility] AERS [id number] [facility] 19:35:00 21:10:[address] [place] [address] 2021-09-13 2021-09-13 Emergency X HARKEY, [facility] ERT [id number] Univers 21:20:00 22:36:00 [facility] 2021-09-13 2021-09-13 Emergency Harkey, [facility] 1.2.127.842 [id number] Univers 21:20:00 22:36:00 [facility] 350.1.13.10 it y of [place] 4.2.7.2.686 [facility] [phone] [address] ([facility]) 2021-09-13 2021-09-13 Emergency Raffaele Pitts [facility] AERS [id number] [facility] 14:57:00 16:37:00 06 [facility] 2021-09-12 2021-09-12 Emergency X MORRICAL, [facility] ERT [id number] Univers 14:25:00 17:51:00 DWAIN ity [facility] 2021-09-12 2021-09-12 Emergency Morrical, TRAUMA 1.2.840.114 [id number] Univers 14:25:00 17:51:00 [facility] 350.1.13.10 ity of 4.2.7.2.[address] [facility] [id number] [address] 2021-09-12 2021-09-12 Emergency X [facility] ERT [id number] Univers 06:20:00 10:10:00 CONSTANTIN [facility] 2021-09-12 2021-09-12 Emergency Dalmedo, Alona TRAUMA 1.2.840 .114 [id number] Univers 06:20:00 10:10:00 Constantin Concepcion [place] 350.1.13.10 [place] [id number] [facility] 014 Branch 2021-09-08 2021-09-09 Emergency X TARA [facility] ERT [id number] Univers 23:01:00 01:30:00 SEBASTIAN dawny of [facility] 2021-09-08 2021-09-09 Emergency Tara, TRAUMA 1.2.602.961 [id number] Univers 23:01:00 01:30:00 Sebastian [facility] 350.1.13.10 [place] [id number] [place] [address] Branch 2021-09-07 2021-09-07 Emergency X TARA [facility] ERT [id number] Univers 19:24:00 23:44:00 SEBASTIAN dawny of [facility] 2021-09-07 2021-09-07 Emergency Tara, TRAUMA 1.2.359.950 [id number] Univers 19:24:00 23:44:00 Sebastian [facility] 350.1.13.10 [place] [id number] [place] [address] Branch 2021-09-06 2021-09-06 Emergency X TARA [facility] ERT [id number] Univers 15:35:00 17:52:00 SEBASTIAN dawny of [facility] 2021-09-06 2021-09-06 Emergency Tara, TRAUMA 1.2.278.619 [id number] Univers 15:35:00 17:52:00 Sebastian [facility] 350.1.13.10 [place] [id number] [facility] 014 Branch 2021-09-06 2021-09-06 Transition MELANIE Vallejo 1.2.840.114 [id number] Univers 00:00:00 00:00:00 of Care Emili RECINOS 350.1.13.10 it[place] [id number] [facility] 403 Branch 2021-08-30 2021-09-05 Inpatient X [facility] PAKO [id number] Univers 16:53:00 16:00:00 ity of [facility] 2021-08-30 2021-09-05 Hospital Gayatri Gu Merissa KNOX 1 .2.840.114 [id number] Univers 16:53:00 16:00:00 Encounter Sophia Andrea MAGGY 350.1 .13.10 ity of [facility] 4.2.7.2.686 [facility] [id number] Medical 7 Branch 2021-09-03 2021-09-03 Surgery [facility] ABILIO 1.2.840.114 [id number] Univers 07:15:00 10:04:00 MAGGY 350.1.13.10 it y of [facility] 4.2.7.2.68 Javi as [phone] [facility] 103 Branch 2021-08-29 2021-08-29 Emergency X [facility] ERT [id number] Univers 17:15:00 20:03:00 FOLUSHO ity of [facility] 2021-08-29 2021-08-29 Emergency Ibikunle, TRAUMA 1.2.840.114 [id number] Univers 17:15:00 20:03:00 [facility] 350.1.13.10 ity of 2.7.2.686 [facility] s [id number] [facility] 014 Branch 2021-07-29 2021-08-05 Inpatient X [facility] PAKO [id number] Univers 20:15:00 07:43:00 ity of [facility] 2021-07-29 2021-08-05 Hospital Jonah Rees 1.2.840.1 14 [id number] Univers 20:15:00 07:43:00 Encounter Karin Myers 350.1.13.1 0 ity of [facility] 4.2.7.2.686 [place] [id number] [facility] 091 Branch 2021-07-29 2021-07-29 Transition MELANIE Vallejo 1.2.840.114 [id number] Univers 00:00:00 00:00:00 of Care Emili RECINOS 350.1.13.10 [place] [id number] [facility] 403 Branch 2021-07-27 2021-07-27 Emergency EM Kateryna, HCAMN JULIA [id number] [facility] 10:15:00 12:36:[address] [place] [address] 2021-07-23 2021-07-26 Inpatient X BIA PEDRO [facility] PAKO [id number] Univers 00:39:00 14:50:00 ity of [facility] 2021-07-23 2021-07-26 Hospital Sabi Schultz 1.2.840 .114 [id number] Univers 00:39:00 14:50:00 Encounter MayelaBia MAGGY 350.1.13.10 ity of [facility] 4.2.7.2.686 Javi as [id number] [facility] 093 Branch 2021-07-22 2021-07-22 Emergency EM Mareclina, [facility] AERS [id number] [facility] 04:25:00 08:20:00 Tarsumi Mar [facility] 2021-06-27 2021-06-27 Emergency EM Bridgett, [facility] AERS [id number] [facility] 15:31:00 17:37:00 Sabi Pollard [facility] 2021-06-25 2021-06-25 Orders Doctor LOVELL 1.2.840.114 [id number] [facility] 00:00:00 00:00:00 Only Unassigned, MAGGY 350.1.13.10 ity of [place] [facility] 4.2.7.2.686 Javi as [phone] [facility] 009 Branch 2021-05-31 2021-06-04 Emergency Willie Garrett [facility] 1.2.840.1 14 [id number] Univers 17:10:00 16:38:00 RavinderClementine macario [facility] 350.1.13.10 ity of Sabi Gann 4.2.7.2.686 [place] Tamika Lyle Bhatt [phone] [address] ([facility]) 2021-05-20 2021-05-21 Emergency Bernardo Donnelly [facility] 1.2.840.114 [id number] Univers 14:29:00 17:10:00 [facility] 350.1.13.10 ity of [place] 4.2.7.2.686 [facility] [id number] [facility] 116 Branch ([facility]) 2021-05-10 2021-05-10 Transition VallejoAsia lopezeddie 1.2.840.114 [id number] Univers 00:00:00 00:00:00 of Care Emili Recinos 350.1.13.10 ity of [place] 4.2.7.2.[address] [facility] [id number] [facility] 403 Branch 2021-05-07 2021-05-09 Hospital Beto Alona [facility] 1.2.840.11 4 [id number] Univers 19:23:00 15:26:00 Encounter Diogo Keane [facility] 350.1.13. 10 ity of Abad Watson [place] 4.2.7.2.686 [facility] [phone] [facility] 114 Branch ([facility]) 2021-04-28 2021-05-01 Inpatient MAS[facility] [id number] [facility] 21:05:00 14:18:00 Marcello 03 [facility] 2020-09-26 2020-09-26 Emergency Jose [facility] 1.2.582.884 [id number] Univers 16:56:00 23:00:00 Mariaelena Oropeza 350.1.13.10 i ty of [place] 4.2.7.2.686 [facility] [id number] [facility] 084 Branch 2020-08-22 2020-08-24 Emergency Funmilayo Pinzon [facility] 1.2.8 40.114 [id number] Univers 15:31:00 14:20:00 aBrt [facility] 350.1.13.10 ity of Ori Persaud [place] 4.2.7.2.686 [facility] [phone] [facility] 114 [address] ([facility]) 2020-07-09 2020-07-09 Emergency Mutendereki [facility] 1.2.840.114 [id number] Univers 16:23:00 19:43:00 , Juan M [facility] 350.1.13.10 [place] [phone] [facility] 014 Branch ([facility]) 2020-06-15 2020-06-15 Patient Saira Goodman 1.2.840.114 [id number] Univers 00:00:00 00:00:00 Outreach E Recinos 350.1.13.10 i ty of [id number] [place] [address] Branch 2020-06-12 2020-06-12 Patient Saira Goodman 1.2.840.114 [id number] Univers 00:00:00 00:00:00 Outreach E Recinos 350.1.13.10 i ty of [place].7[place] [id number] [address] 2020-06-08 2020-06-08 Patient Melanie Emanuel 1.2.840.114 [id number] Univers 00:00:00 00:00:00 Outreach Mela Nolberto Recinos 350.1.13.10 ity of [place] [id number] [address] 2020-06-07 2020-06-07 Patient Saira Goodman 1.2.840.114 [id number] Univers 00:00:00 00:00:00 Outreach E Recinos 350.1.13.10 i ty of [place] [id number] [address] 2020-06-05 2020-06-05 Emergency [facility] 1.2.840.114 [id number] Univers 06:47:00 10:55:00 More Oropeza 350.1.13.10 ity of [place] [id number] [address] 2020-06-04 2020-06-04 Emergency Andrzej [facility] 1.2.780.569 [id number] Univers 10:36:00 13:38:00 Bernardo [facility] 350.1.13.10 it y [place].2.[place] [phone] [facility] 014 Branch ([facility]) 2020-06-04 2020-06-04 Patient Saira Goodman 1.2.840.114 [id number] Univers 00:00:00 00:00:00 Outreach E Recinos 350.1.13.10 i ty of [place].2.7.2.[place] [id number] [place] [address] Branch 2020-06-04 2020-06-04 Patient Melanie Emanuel 1.2.840.114 [id number] Univers 00:00:00 00:00:00 Outreach Mela Arvizu Recinos 350.1.13.10 ity of [place] [id number] [address] 2020-06-01 2020-06-01 Transition Melanie Vallejo 1.2.840.114 [id number] Univers 00:00:00 00:00:00 of Care Emili Recinos 350.1.13.10 ity of [place].7[place] [id number] [address] 2020-05-22 2020-05-31 Hospital Alex Lopez 1.2.840.11 4 [id number] Univers 14:42:00 18:40:00 Encounter LeonardoctaviaGriffina Maggy 350.1.13.10 ity of [facility] 4.2.7.2.686 Javi as [phone] [place] 676958 [place] 2020-05-31 2020-05-31 Patient Saira Goodman 1.2.840.114 [id number] Univers 00:00:00 00:00:00 Outreach E Recinos 350.1.13.10 i ty of [place] [id number] [address] 2020-05-23 2020-05-23 Patient Saira Goodman 1.2.840.114 [id number] Univers 00:00:00 00:00:00 Outreach E Recinos 350.1.13.10 i ty of [place] [id number] [address] 2020-05-23 2020-05-23 Patient Saira Goodman 1.2.840.114 78 [id number] Univers 00:00:00 00:00:00 Outreach E Recinos 350.1.13.10 i ty of [place]2.[place] [id number] [address] 2020-05-23 2020-05-23 Patient Melanie Emanuel 1.2.840.114 [id number] Univers 00:00:00 00:00:00 Outreach Mela Nolberto Recinos 350.1.13.10 ity of [place].2.[place] [id number] [address] 2020-05-21 2020-05-21 Emergency [facility] 1.2.671.385 [id number] Univers 20:52:00 23:41:00 [facility] 350.1.13.10 it y of [place].2.[place] [id number] [address] ([facility]) 2020-05-20 2020-05-20 Emergency Unknown, TRAUMA 1.2.840.114 [id number] Univers 07:04:00 15:13:00 Attending CENTER 350.1.13.10 it[place]2.[place] [id number] [address] 2020-05-19 2020-05-20 Emergency [facility] 1.2.840.114 7 [id number] Univers 21:29:00 06:12:00 [facility] 350.1.13.10 it [place] [id number] [address] ([facility]) 2020-05-18 2020-05-18 Patient Saira Goodman 1.2.840.114 [id number] Univers 10:18:59 11:28:59 Outreach E Recinos 350.1.13.10 i ty of [place] [id number] [address] 2020-05-18 2020-05-18 Patient Melanie Emanuel 1.2.840.114 [id number] Univers 00:00:00 00:00:00 Outreach Mela Jjy 350.1.13.10 ity of [place]2.[place] [id number] [address] 2020-05-17 2020-05-17 Patient Saria Goodman 1.2.840.114 [id number] Univers 00:00:00 00:00:00 Outreach Heidi Recinos 350.1.13.10 i ty [place] [id number] [address] 2020-05-17 2020-05-17 Patient Asia Emanueleddie 1.2.840.114 [id number] Univers 00:00:00 00:00:00 Outreach Mela Jjy 350.1.13.10 ity of [place] [id number] [address] 2020-05-15 2020-05-15 Patient Asia Emanueleddie 1.2.840.114 [id number] Univers 00:00:00 00:00:00 Outreach Mela Jjy 350.1.13.10 ity of [place]2.[place] [id number] [address] 2020-05-14 2020-05-14 Transition Melanie Vallejo 1.2.840.114 [id number] Univers 00:00:00 00:00:00 of Care Emili Jjy 350.1.13.10 ity of [place].7.2.[place] [id number] [address] 2020-05-04 2020-05-12 Hospital Lora Hall 1.2. 840.114 [id number] Univers 21:09:00 14:03:00 Encounter Carol Ann Jason 350.1.13.10 ity of Hospital 4.2.7.2.686 Javi as [id number] [place] 676952 [place] 2020-05-10 2020-05-10 Patient Saira Goodman 1.2.840.114 78 [id number] Univers 00:00:00 00:00:00 Outreach Heidi Recinos 350.1.13.10 i ty of [place].7.2.[place] [id number] [place] [address] Branch 2020-05-09 2020-05-09 Transition Melanie Vallejo 1.2.840.114 [id number] Univers 00:00:00 00:00:00 of Care Emili Recinos 350.1.13.10 ity of [place]2.[place] [id number] [address] 2020-05-08 2020-05-08 Patient Saira Goodman 1.2.840.114 [id number] Univers 00:00:00 00:00:00 Outreach E Recinos 350.1.13.10 i ty of [place] [id number] [address] 2020-05-02 2020-05-03 Emergency [facility] 1.2.051.244 [id number] Univers 23:37:00 01:53:00 Joel S Albers 350.1.13.10 ity of [place].2.[place] [id number] [facility] 084 Branch 2020-05-03 2020-05-03 Patient Saira Goodman 1.2.840.114 [id number] Univers 00:00:00 00:00:00 Outreach E Recinos 350.1.13.10 i ty of [place] [id number] [address] 2020-05-03 2020-05-03 Transition Melanie Vallejo 1.2.840.114 [id number] Univers 00:00:00 00:00:00 of Care Emili Recinos 350.1.13.10 ity of [place] 4.2.7.2.[place] [id number] [place] [address] Branch 2020-03-30 2020-05-02 [facility] Alex Lopez 1.2.840.11 4 [id number] Univers 16:55:00 16:45:00 Encounter Diogo Keane 350.1.13. 10 ity of [facility] 4.2.7.2.686 [place] [phone] [facility] 091 Branch 2020-04-06 2020-04-06 Anesthesia Dana Sampson 1.2.8 40.114 [id number] Univers 09:10:00 11:29:00 Cynthia Herring 350.1.1 3.10 ity of Hospital 4.2.7.2.686 Javi as [id number] [facility] 103 Branch 2020-03-29 2020-03-29 Transition Melanie Vallejo 1.2.840.114 [id number] Univers 00:00:00 00:00:00 of Care Emili Recinos 350.1.13.10 ity of [place]2.[place] [id number] [facility] 403 Branch 2020-03-25 2020-03-28 Hospital Bernardo Donnelly [facility] 1.2.840.114 [id number] Univers 19:12:00 18:43:00 Encounter Simin, [facility] 350.1.13.1 0 it[place] [phone] [facility] 113 [address] ([facility]) 2020-03-07 2020-03-07 Transition Mleanie Vallejo 1.2.840.114 [id number] Univers 00:00:00 00:00:00 of Care Emili Recinos 350.1.13.10 ity of [place].7.2.[place] [id number] [facility] 403 [address] 2020-03-02 2020-03-05 Hospital Sabi Begum [facility] 1.2.840.11 [id number] Univers 19:53:34 17:23:00 Encounter Eliu [facility] 350.1.13.10 ity of Simin, Radheshyam [place] 4.2.7.2.686 [place] Bhat[place] [phone] [facility] 110 Branch ([facility]) 2020-02-29 2020-02-29 Transition Melanie Vallejo 1.2.840.114 [id number] Univers 00:00:00 00:00:00 of Care Emili Recinos 350.1.13.10 ity of [place].2.[place] [id number] [facility] 403 Branch 2020-02-26 2020-02-27 Hospital Juventino Mccabe 1.2.840.11 4 [id number] Univers 04:55:41 19:20:00 Encounter Bia Pedro 350.1.13.10 ity of Hospital 4.2.7.2.686 Javi as [id number] [facility] 090 Branch 2020-02-27 2020-02-27 Patient Saira Goodman Melanie 1.2.840.114 [id number] Univers 00:00:00 00:00:00 Outreach E Recinos 350.1.13.10 i ty of [place].2.7.2.[place] [id number] [place] [address] Branch 2020-02-25 2020-02-26 Emergency Begum, [facility] 1.2.811.008 [id number] Univers 21:25:58 03:55:[address] [facility] 350.1.13.10 it y [place] [phone] [facility] 014 Branch ([facility]) 2020-02-24 2020-02-24 Outpatient Perea, [facility] LABO [id number] [facility] 07:51:00 07:51:00 Mark 96 [facility] 2020-02-18 2020-02-18 Outpatient Avtar, [facility] LABO [id number] [facility] 00:26:00 00:26:00 Oladipo 05 [facility] 2020-02-07 2020-02-07 Transition Melanie Vallejo 1.2.840.114 [id number] Univers 00:00:00 00:00:00 of Care Emili Recinos 350.1.13.10 ity of [place] 4.2.7.2.[place] [phone] [place] [address] Branch 2020-02-07 2020-02-07 Transition Melanie Vallejo 1.2.840.114 [id number] 00:00:00 00:00:00 of Care Emili Recinos 350.1.13.10 [place] 4.2.7.2.686 [phone] [facility] 2020-01-28 2020-02-05 Inpatient X SIMIN [facility] URI [id number] Univers 18:12:56 15:12:00 RADHESHYAM ity [facility] 2020-01-28 2020-02-05 [facility] Bernardo Donnelly [facility] 1.2.840.114 [id number] Univers 18:12:56 15:12:00 Encounter Ahteetee [facility] 350.1.13.10 ity of Simin, Radheshyam [place] 4.2.7.2.686 [facility] [phone] [facility] 114 [address] ([facility]) 2020-01-28 2020-02-05 [facility] Bernardo Donnelly [facility] 1.2.840.114 [id number] 18:12:56 15:12:00 Encounter Ahteetee [facility] 350.1.13.10 Simin, Radheshyam [place] 4.2.7.2.686 [place] [phone] [place] [address] ([facility]) 2020-01-24 2020-01-26 Emergency Sabi Begum [facility] 1.2.840.1 14 [id number] Univers 18:46:34 19:35:00 Ahteetee, [facility] 350.1.13.10 ity of Simin, Radheshyam [place] 4.2.7.2.686 [facility] [phone] [facility] 109 [address] ([facility]) 2020-01-24 2020-01-26 Outpatient X SIMIN [facility] URI [id number] Univers 18:46:34 19:35:00 RADHESHYAM ity [facility] 2020-01-24 2020-01-26 Emergency Sabi Begum [facility] 1.2.840.1 14 [id number] 18:46:34 19:35:00 Ahmed, [facility] 350.1.13.10 Simin, Radheshyam [place] 4.2.7.2.686 Bhatt [phone] [place] [id number] ([facility]) 2020-01-05 2020-01-05 Outpatient JOE Perea [id number] [facility] 23:52:00 23:52:00 [facility] 2019-[facility]-28 2019-12-28 Orders Doctor BERNARDO [id number] Univers 00:00:00 00:00:00 Only Unassigned, MAGGY 350.1.13.10 [facility]y of [facility] 4.2.7.2.686 Javi as [id number] [facility] [address] 2019-12-28 2019-12-28 Orders Doctor BERNARDO 1.2.840.114 [id number] 00:00:00 00:00:00 Only Unassigned, MAGGY 350.1.13.10 [facility] 4.2.7.2.686 [id number] 2019-12-12 2019-12-12 Emergency [place], TRAUMA [id number] Univers 21:02:30 23:20:[facility]13.10 [place] [id number] [facility] [address] 2019-12-12 2019-12-12 Emergency [place], TRAUMA [id number] 21:02:30 23:20:00 [facility] 350.1.13.10 4.2.7.2.686 [id number] 2017-11-02 2017-11-02 Emergency E [facility] MED [id number] 08:33:00 08:33:00 [facility] 2017-08-05 2017-08-05 Outpatient [facility] [id number] [place] 00:00:00 00:00:00 Health 2017-07-28 2017-07-28 Outpatient [facility] [id number] [place] 00:00:00 00:00:00 [facility] 2017-06-24 2017-06-24 Outpatient [facility] [id number] [place] 00:00:00 00:00:00 [facility] 2017-06-22 2017-06-22 Emergency [facility] [id number] [place] 21:37:29 21:37:29 Health 2017-06-22 2017-06-22 Emergency [facility] MED [id number] [place] 21:06:00 21:06:00 Health 2017-06-22 2017-06-22 Outpatient [facility] [id number] [place] 10:02:31 10:02:31 Health 2017-06-09 2017-06-09 Outpatient [facility] [id number] [place] 00:00:00 00:00:00 Health 2017-06-09 2017-06-09 Outpatient [facility] [id number] [place] 00:00:00 00:00:00 Health 2017-05-08 2017-05-08 Emergency [facility] MED [id number] [address] 01:04:44 01:04:44 Health 2017-05-05 2017-05-05 Emergency E [facility] MED [id number] [address] 08:11:00 08:11:00 [facility] 2017-04-15 2017-04-15 Emergency E [facility] MED [id number] [address] 09:53:00 09:53:00 [facility] 2017-04-14 2017-04-14 Outpatient [facility] [id number] [address] 13:31:02 13:31:02 Health Results Test Description Test Time Test Comments Results Result Comments Source BASIC METABOLIC PANEL (NA, K, CL, CO2, GLUCOSE, BUN, 2022-04 12:12:49 CREATININE, CA) Test Item Value Reference Range Interpretation Comme nts NA (test code = 8011515522) 132 mmol/L 135-145 L K (test code = 3625788026) 3.4 mmol/L 3.5-5 L CL (test code = 7936691094) 106 mmol/L 98-108 CO2 TOTAL (test code = 2949537239) 22 mmol/L 23-31 L AGAP (test code = 1812281998) 2-16 BUN (test code = 5332320677) 22 mg/dL 7-23 GLUCOSE (test code = 6341622537) 87 mg/dL 70-110 CREATININE (test code = 0.98 mg/dL 0.6-1.25 8688837208) CALCIUM (test code = 4418987176) 7.8 mg/dL 8.6-10.6 L eGFR (test code = 3111201584) mL/min/1.73m2 GILBERTO (test code = GILBERTO) Association [...] tests). Lab Interpretation (test code = Abnormal 69458-8) [facility]12[facility]49 Test Item Value Reference Range Interpretation Comments MAGNESIUM (test code = 8573193173) 1.7 mg/dL 1.7-2.4 Lab Interpretation (test code = Normal 75543-0) [facility] 12:12:29 Test Item Value Reference Range Interpretation Comments PHOSPHORUS (test code = 8016619039) 2.3 mg/dL 2.5-5 L Lab Interpretation (test code = Abnormal 45108-5) [facility] [id number] 11:40:10 Test Item Value Reference Range Interpretation Comments WBC (test code = See_Comment [Automated 4922-2) message] The sy stem which generated this result transmitted reference range : 4.20 - 10.70 10*3/?L. The reference range was not used to interpret this result as normal/abnormal . RBC (test code = See_Comment L [Automated 047-8) message] The sy stem which generated this [...] RDW-SD (test code = 46.9 fL 38.5-51.6 18389-7) RDW-CV (test code = 15.4 % 12.1-15.4 788-0) PLT (test code = See_Comment [Automated 777-3) message] The sy stem which generated this result transmitted reference range : 150 - 328 10*3/ ?L. The reference r meredith was not used to interpret this result as normal/abnormal . MPV (test code = 9.3 fL 9.8-13 L 42309-5) NRBC/100 WBC (test See_Comment [Automat ed code = 5466428648) message] The system which generated this result transmitted reference range : 0.0 - 10.0 /100 WBCs. The refer ence range was not u sed to interpret th is result as normal/abnormal . NRBC x10^3 (test code See_Comment [Auto mated = 0734002299) message] The s ystem which generated this result transmitted reference range : 10*3/?L. The reference range was not used to interpret this result as normal/abnormal . GRAN MAT (NEUT) % 69.3 % (test code = 770-8) IMM GRAN % (test code 0.20 % = 7868706147) LYMPH % (test code = 18.2 % 736-9) MONO % (test code = 9.9 % 5905-5) EOS % (test code = 2.0 % 713-8) BASO % (test code = 0.4 % 706-2) GRAN MAT x10^3(ANC) 3.51 10*3/uL 1.99-6.95 (test code = 2120240450) IMM GRAN x10^3 (test 0-0.06 code = 2470960206) LYMPH x10^3 (test code 0.92 10*3/uL 1.09-3.23 L = 731-0) MONO x10^3 (test code 0.50 10*3/uL 0.36-1.02 = 742-7) EOS x10^3 (test code = 0.10 10*3/uL 0.06-0.53 711-2) BASO x10^3 (test code 0.01-0.09 = 704-7) Lab Interpretation Abnormal (test code = 04254-2) [facility]. METABOLIC PANEL (85859)2022-05-20 01:54:47 Test Item Value Reference Range Interpretation Comments NA (test code = 131 mmol/L 135-145 L 7661515869) K (test code = 4.6 mmol/L 3.5-5 0590689587) CL (test code = 102 mmol/L 98-108 3280866345) CO2 TOTAL (test code = 16 mmol/L 23-31 L 9579740795) AGAP (test code = 2-16 0611578512) BUN (test code = 46 mg/dL 7-23 H 8526365792) GLUCOSE (test code = 98 mg/dL 70-110 8604268587) CREATININE (test code = 1.88 mg/dL 0.6-1.25 H 8785846258) TOTAL BILI (test code = 0.7 mg/dL 0.1-1.1 6166531250) CALCIUM (test code = 9.1 mg/dL 8.6-10.6 6261651711) T PROTEIN (test code = 7.3 g/dL 6.3-8.2 0431426312) ALBUMIN (test code = 4.8 g/dL 3.5-5 1607769342) ALK PHOS (test code = 72 U/L 34-122 0275352143) ALTv (test code = 26 U/L 5-50 1742-6) AST(SGOT) (test code = 27 U/L 13-40 1012483548) eGFR (test code = mL/min/1.73m2 4084077182) GILBERTO (test code = GILBERTO) Association of [...] tests). Lab Interpretation Abnormal (test code = 62397-3) [facility] 01:54:47 Test Item Value Reference Range Interpretation Comments LIPASE (test code = 9766573587) 263 U/L 0-220 H Lab Interpretation (test code = Abnormal 51048-9) [facility] [id number] 01:43:49 Test Item Value Reference Range Interpretation Comments WBC (test code = See_Comment [Automated 1295-2) message] The sy stem which generated this result transmitted reference range : 4.20 - 10.70 10*3/?L. The reference range was not used to interpret this result as normal/abnormal . RBC (test code = See_Comment L [Automated 599-5) message] The sy stem which generated this [...] RDW-SD (test code = 46.0 fL 38.5-51.6 43305-7) RDW-CV (test code = 15.4 % 12.1-15.4 788-0) PLT (test code = See_Comment H [Automated 777-3) message] The sy stem which generated this result transmitted reference range : 150 - 328 10*3/ ?L. The reference r meredith was not used to interpret this result as normal/abnormal . MPV (test code = 9.7 fL 9.8-13 L 74856-2) NRBC/100 WBC (test See_Comment [Automat ed code = 1410323008) message] The system which generated this result transmitted reference range : 0.0 - 10.0 /100 WBCs. The refer ence range was not u sed to interpret th is result as normal/abnormal . NRBC x10^3 (test code See_Comment [Auto mated = 9616961257) message] The s ystem which generated this result transmitted reference range : 10*3/?L. The reference range was not used to interpret this result as normal/abnormal . GRAN MAT (NEUT) % 64.5 % (test code = 770-8) IMM GRAN % (test code 0.40 % = 4853794835) LYMPH % (test code = 24.7 % 736-9) MONO % (test code = 9.2 % 5905-5) EOS % (test code = 0.7 % 713-8) BASO % (test code = 0.5 % 706-2) GRAN MAT x10^3(ANC) 5.20 10*3/uL 1.99-6.95 (test code = 7107883016) IMM GRAN x10^3 (test 0.03 10*3/uL 0-0.06 code = 7767809676) LYMPH x10^3 (test code 1.99 10*3/uL 1.09-3.23 = 731-0) MONO x10^3 (test code 0.74 10*3/uL 0.36-1.02 = 742-7) EOS x10^3 (test code = 0.06 10*3/uL 0.06-0.53 711-2) BASO x10^3 (test code 0.04 10*3/uL 0.01-0.09 = 704-7) Lab Interpretation Abnormal (test code = 59603-4) [facility] WITH [id number] 05:06:34 Test Item Value Reference Range Interpretation [...] (test code = 56.7 fL 38.5-51.6 H 12059-0) RDW-CV (test code = 17.4 % 12.1-15.4 H 788-0) PLT (test code = See_Comment [Automated 777-3) message] The sy stem which generated this result transmitted reference range : 150 - 328 10*3/ ?L. The reference r meredith was not used to interpret this result as normal/abnormal . MPV (test code = 9.5 fL 9.8-13 L 28971-1) NRBC/100 WBC (test See_Comment [Automat ed code = 6414267233) message] The system which generated this result transmitted reference range : 0.0 - 10.0 /100 WBCs. The refer ence range was not u sed to interpret th is result as normal/abnormal . NRBC x10^3 (test code See_Comment [Auto mated = 3916142503) message] The s ystem which generated this result transmitted reference range : 10*3/?L. The reference range was not used to interpret this result as normal/abnormal . SEG % (test code = 56 % 33-76 38037-9) LYMPH % (test code = 28 % 14-54 71206-0) MONO % (test code = 12 % 0-4 H 24529-7) EOS % (test code = 4 % 0-3 H 51432-4) ANC (test code = 4.72 10*3/uL 1.99-6.95 753-4) PLT ESTIMATE (test Normal Normal code = 9317-9) Lab Interpretation Abnormal (test code = 03602-8) [facility]. METABOLIC PANEL (21309)2022-04-10 04:19:15 Test Item Value Reference Range Interpretation Comments NA (test code = 137 mmol/L 135-145 9317347549) K (test code = 4.6 mmol/L 3.5-5 5538127881) CL (test code = 108 mmol/L 98-108 0122940738) CO2 TOTAL (test code = 22 mmol/L 23-31 L 4328672696) AGAP (test code = 2-16 5941713245) BUN (test code = 16 mg/dL 7-23 4760801874) GLUCOSE (test code = 96 mg/dL 70-110 5675336309) CREATININE (test code = 1.35 mg/dL 0.6-1.25 H 1836075025) TOTAL BILI (test code = 0.4 mg/dL 0.1-1.4 4330275277) CALCIUM (test code = 9.1 mg/dL 8.6-10.6 8370706454) T PROTEIN (test code = 5.5 g/dL 6.3-8.2 L 0312748949) ALBUMIN (test code = 3.9 g/dL 3.5-5 0106437029) ALK PHOS (test code = 58 U/L 34-122 4466933067) ALTv (test code = 41 U/L 5-50 1742-6) AST(SGOT) (test code = 42 U/L 13-40 H 8164699506) eGFR (test code = mL/min/1.73m2 6993718983) GILBERTO (test code = GILBERTO) Association of [...] tests). Lab Interpretation Abnormal (test code = 08498-8) [facility] 03[facility]33:31 Test Item Value Reference Range Interpretation Comments LIPASE (test code = 2026812999) 90 U/L 0-220 Lab Interpretation (test code = Normal 50008-6) [facility] 12:00:33 Test Item Value Reference Range Interpretation Comments MAGNESIUM (test code = 0516577918) 1.5 mg/dL 1.7-2.4 L Lab Interpretation (test code = Abnormal 20265-6) [facility] METABOLIC PANEL (NA, K, CL, CO2, GLUCOSE, BUN, CREATININE, CA)2022-04-08 11:12:32 Test Item Value Reference Range Interpretation Comments NA (test code = 136 mmol/L 135-145 3631069449) K (test code = 4.1 mmol/L 3.5-5 2633344044) CL (test code = 108 mmol/L 98-108 1686380582) CO2 TOTAL (test code = 25 mmol/L 23-31 7554163876) AGAP (test code = 2-16 7217800750) BUN (test code = 10 mg/dL 7-23 5143888944) GLUCOSE (test code = 82 mg/dL 70-110 1364679009) CREATININE (test code = 1.10 mg/dL 0.6-1.25 2744829544) CALCIUM (test code = 8.3 mg/dL 8.6-10.6 L 8523350080) eGFR (test code = mL/min/1.73m2 1782775309) GILBERTO (test code = GILBERTO) Association of [...] tests). Lab Interpretation Abnormal (test code = 00687-9) [facility] 11:12:32 Test Item Value Reference Range Interpretation Comments PHOSPHORUS (test code = 8116948415) 2.5 mg/dL 2.5-5 Lab Interpretation (test code = Normal 91214-2) [facility] [id number] 10:47:27 Test Item Value Reference Range Interpretation [...] (test code = 54.4 fL 38.5-51.6 H 98808-7) RDW-CV (test code = 16.9 % 12.1-15.4 H 788-0) PLT (test code = See_Comment [Automated 777-3) message] The sy stem which generated this result transmitted reference range : 150 - 328 10*3/ ?L. The reference r meredith was not used to interpret this result as normal/abnormal . MPV (test code = 9.7 fL 9.8-13 L 39747-5) NRBC/100 WBC (test See_Comment [Automat ed code = 7683589341) message] The system which generated this result transmitted reference range : 0.0 - 10.0 /100 WBCs. The refer ence range was not u sed to interpret th is result as normal/abnormal . NRBC x10^3 (test code See_Comment [Auto mated = 1622725312) message] The s ystem which generated this result transmitted reference range : 10*3/?L. The reference range was not used to interpret this result as normal/abnormal . GRAN MAT (NEUT) % 54.7 % (test code = 770-8) IMM GRAN % (test code 0.40 % = 6977336339) LYMPH % (test code = 33.8 % 736-9) MONO % (test code = 8.7 % 5905-5) EOS % (test code = 2.0 % 713-8) BASO % (test code = 0.4 % 706-2) GRAN MAT x10^3(ANC) 2.95 10*3/uL 1.99-6.95 (test code = 9091602097) IMM GRAN x10^3 (test 0-0.06 code = 0249294060) LYMPH x10^3 (test code 1.82 10*3/uL 1.09-3.23 = 731-0) MONO x10^3 (test code 0.47 10*3/uL 0.36-1.02 = 742-7) EOS x10^3 (test code = 0.11 10*3/uL 0.06-0.53 711-2) BASO x10^3 (test code 0.01-0.09 = 704-7) Lab Interpretation Abnormal (test code = 21954-7) [facility] (NA, K, CL, CO2, GLUCOSE, BUN, CREATININE, CA)2022-04-06 09:47:17 Test Item Value Reference Range Interpretation Comments NA (test code = 134 mmol/L 135-145 L 5952551933) K (test code = 4.2 mmol/L 3.5-5 Slight 6667278052) hemolysis CL (test code = 114 mmol/L 98-108 H 1289949409) CO2 TOTAL (test code 16 mmol/L 23-31 L = 6664309460) AGAP (test code = 2-16 9700465703) BUN (test code = 16 mg/dL 7-23 Slight 7031271027) hemolysis GLUCOSE (test code = 79 mg/dL 70-110 9349358099) CREATININE (test code 1.00 mg/dL 0.6-1.25 = 2772375393) CALCIUM (test code = 7.5 mg/dL 8.6-10.6 L 0368792709) eGFR (test code = mL/min/1.73m2 1003808863) GILBERTO (test code = GILBERTO) Association of [...] tests). Lab Interpretation Abnormal (test code = 31093-1) [facility] 09:47:17 Test Item Value Reference Range Interpretation Comments MAGNESIUM (test code = 5697299707) 1.2 mg/dL 1.7-2.4 L Lab Interpretation (test code = Abnormal 91632-9) [facility] Whole [id number] 09:16:49 Test Item Value Reference Range Interpretation Comments LACTIC ACID (test code = 1.35 mmol/L 0.5-2.2 2954611340) Lab Interpretation (test code = Normal 94403-8) [facility] [id number] 09:13:32 Test Item Value Reference Range Interpretation [...] (test code = 52.4 fL 38.5-51.6 H 53822-9) RDW-CV (test code = 16.6 % 12.1-15.4 H 788-0) PLT (test code = See_Comment [Automated 777-3) message] The sy stem which generated this result transmitted reference range : 150 - 328 10*3/ ?L. The reference r meredith was not used to interpret this result as normal/abnormal . MPV (test code = 10.0 fL 9.8-13 55560-0) NRBC/100 WBC (test See_Comment [Automat ed code = 0283757851) message] The system which generated this result transmitted reference range : 0.0 - 10.0 /100 WBCs. The refer ence range was not u sed to interpret th is result as normal/abnormal . NRBC x10^3 (test code See_Comment [Auto mated = 3832191908) message] The s ystem which generated this result transmitted reference range : 10*3/?L. The reference range was not used to interpret this result as normal/abnormal . GRAN MAT (NEUT) % 48.6 % (test code = 770-8) IMM GRAN % (test code 0.20 % = 4357516213) LYMPH % (test code = 39.4 % 736-9) MONO % (test code = 9.3 % 5905-5) EOS % (test code = 1.9 % 713-8) BASO % (test code = 0.6 % 706-2) GRAN MAT x10^3(ANC) 2.36 10*3/uL 1.99-6.95 (test code = 1712082414) IMM GRAN x10^3 (test 0-0.06 code = 8180474176) LYMPH x10^3 (test code 1.91 10*3/uL 1.09-3.23 = 731-0) MONO x10^3 (test code 0.45 10*3/uL 0.36-1.02 = 742-7) EOS x10^3 (test code = 0.09 10*3/uL 0.06-0.53 711-2) BASO x10^3 (test code 0.03 10*3/uL 0.01-0.09 = 704-7) Lab Interpretation Abnormal (test code = 03893-7) [facility] 07:34:48 Test Item Value Reference Range Interpretation Comments MAGNESIUM (test code = 4428673079) 1.8 mg/dL 1.7-2.4 Lab Interpretation (test code = Normal 38784-9) [facility] [id number] 18:40:18 Test Item Value Reference Range Interpretation Comments PH (test code = 7.32-7.42 L 0396613288) PCO2 PANKAJ (test code = See_Comment [Auto mated message] 8287839027) The system [employer] h generated this result transmitted ref erence range: 41 - 51 mmHg. The reference r meredith was not used to interpret this result as normal/abnor mal. PO2 PANKAJ (test code = See_Comment L [Autom ated message] 2303749750) The system [employer] generated this result transmitted ref erence range: 25 - 40 mmHg. The reference r meredith was not used to interpret this result as normal/abnor mal. HCO3 PANKAJ (test code = See_Comment L [Auto mated message] 2879253832) The system [employer] generated this result transmitted ref erence range: 24 - 28 mEq/L. The reference r meredith was not used to interpret this result as normal/abnor mal. AC VBE(BEAKER) (test mEq/L code = 3485435230) Lab Interpretation (test Abnormal code = 51026-0) [facility] METABOLIC PANEL (NA, K, CL, CO2, GLUCOSE, BUN, CREATININE, CA)2022-04-03 18:33:26 Test Item Value Reference Range Interpretation Comments NA (test code = 129 mmol/L 135-145 L 1301158272) K (test code = 3.3 mmol/L 3.5-5 L 4963800118) CL (test code = 100 mmol/L 98-108 7071888858) CO2 TOTAL (test code = 19 mmol/L 23-31 L 5085846808) AGAP (test code = 2-16 5778409919) BUN (test code = 49 mg/dL 7-23 H 5532070257) GLUCOSE (test code = 75 mg/dL 70-110 4053492898) CREATININE (test code = 2.55 mg/dL 0.6-1.25 H 6763862015) CALCIUM (test code = 8.6 mg/dL 8.6-10.6 2381059198) eGFR (test code = mL/min/1.73m2 2844504443) GILBERTO (test code = GILBERTO) Association of [...] tests). Lab Interpretation Abnormal (test code = 33817-3) [facility], SERUM OR [id number] 15:45:31 Test Item Value Reference Range Interpretation Comments OSMOLALITY (test code = See_Comment [Au tomated message] 7492-2) The system [employer] generated this result transmitted ref erence range: 278 - 30 5 mOsm/kg. The re ference range was not u sed to interpret this result as normal/abnor mal. Lab Interpretation (test Normal code = 39725-0) [facility] with [id number] 11:27:34 Test Item Value Reference Range Interpretation Comments WBC (test code = See_Comment [Automated 8003-2) message] The sy stem which generated this result transmitted reference range : 4.20 - 10.70 10*3/?L. The reference range was not used to interpret this result as normal/abnormal . RBC (test code = See_Comment L [Automated 354-8) message] The sy stem which generated this [...] RDW-SD (test code = 48.7 fL 38.5-51.6 15217-6) RDW-CV (test code = 15.9 % 12.1-15.4 H 788-0) PLT (test code = See_Comment [Automated 777-3) message] The sy stem which generated this result transmitted reference range : 150 - 328 10*3/ ?L. The reference r meredith was not used to interpret this result as normal/abnormal . MPV (test code = 9.4 fL 9.8-13 L 30282-2) NRBC/100 WBC (test See_Comment [Automat ed code = 3033826336) message] The system which generated this result transmitted reference range : 0.0 - 10.0 /100 WBCs. The refer ence range was not u sed to interpret th is result as normal/abnormal . NRBC x10^3 (test code See_Comment [Auto mated = 6829573205) message] The s ystem which generated this result transmitted reference range : 10*3/?L. The reference range was not used to interpret this result as normal/abnormal . GRAN MAT (NEUT) % 56.0 % (test code = 770-8) IMM GRAN % (test code 0.50 % = 4997669473) LYMPH % (test code = 33.2 % 736-9) MONO % (test code = 8.6 % 5905-5) EOS % (test code = 1.1 % 713-8) BASO % (test code = 0.6 % 706-2) GRAN MAT x10^3(ANC) 3.64 10*3/uL 1.99-6.95 (test code = 1672095583) IMM GRAN x10^3 (test 0.03 10*3/uL 0-0.06 code = 8531150154) LYMPH x10^3 (test code 2.16 10*3/uL 1.09-3.23 = 731-0) MONO x10^3 (test code 0.56 10*3/uL 0.36-1.02 = 742-7) EOS x10^3 (test code = 0.07 10*3/uL 0.06-0.53 711-2) BASO x10^3 (test code 0.04 10*3/uL 0.01-0.09 = 704-7) Lab Interpretation Abnormal (test code = 77762-5) [facility] Metabolic Panel (NA, K, CL, CO2, GLUCOSE, BUN, CREATININE, CA)2022-04-03 10:08:59 Test Item Value Reference Range Interpretation Comments NA (test code = 125 mmol/L 135-145 L 7503279401) K (test code = 3.7 mmol/L 3.5-5 0448434602) CL (test code = 96 mmol/L 98-108 L 5470123502) CO2 TOTAL (test code = 15 mmol/L 23-31 L 0365934398) AGAP (test code = 2-16 2774310612) BUN (test code = 50 mg/dL 7-23 H 4938231399) GLUCOSE (test code = 86 mg/dL 70-110 2626974742) CREATININE (test code = 3.86 mg/dL 0.6-1.25 H 2417383158) CALCIUM (test code = 8.6 mg/dL 8.6-10.6 0561504501) eGFR (test code = mL/min/1.73m2 5844944395) GILBERTO (test code = GILBERTO) Association of [...] tests). Lab Interpretation Abnormal (test code = 71673-2) [facility] [id number] 04:09:02 Test Item Value Reference Range Interpretation Comments LACTIC ACID (test code = 1.54 mmol/L 0.5-2.2 3075952960) Lab Interpretation (test code = Normal 71564-8) [facility] Acid Whole [id number] 00:25:08 Test Item Value Reference Range Interpretation Comments LACTIC ACID (test code = 2.50 mmol/L 0.5-2.2 H 7117715311) Lab Interpretation (test code = Abnormal 31284-8) [facility] WITH [id number] 20:19:45 Test Item Value Reference Range Interpretation Comments WBC (test code = See_Comment H [Automated 3558-2) message] The system which generated this result [...] RDW-SD (test code = 49.8 fL 38.5-51.6 48803-5) RDW-CV (test code = 16.4 % 12.1-15.4 H 788-0) PLT (test code = See_Comment H [Automated 777-3) message] The system which generated this result transmit dain reference range : 150 - 328 10*3/ ?L. The reference range was not u sed to interpret th is result as normal/abnormal . MPV (test code = 10.7 fL 9.8-13 80741-6) NRBC/100 WBC (test See_Comment [Automat ed code = 2048867467) message] The system which generated this result transmit dain reference range : 0.0 - 10.0 /100 WBCs. The reference range was not used to interpret this result as normal/abnormal . NRBC x10^3 (test code See_Comment [Auto mated = 4994849852) message] The system which generated this result transmit dain reference range : 10*3/?L. The reference range was not used to interpret this result as normal/abnormal . GRAN MAT (NEUT) % 73.4 % (test code = 770-8) IMM GRAN % (test code 0.60 % = 3731211146) LYMPH % (test code = 17.2 % 736-9) MONO % (test code = 8.2 % 5905-5) EOS % (test code = 0.2 % 713-8) BASO % (test code = 0.4 % 706-2) GRAN MAT x10^3(ANC) 10.17 10*3/uL 1.99-6.95 H (test code = 7709185174) IMM GRAN x10^3 (test 0.09 10*3/uL 0-0.06 H code = 6937741183) LYMPH x10^3 (test code 2.38 10*3/uL 1.09-3.23 = 731-0) MONO x10^3 (test code 1.13 10*3/uL 0.36-1.02 H = 742-7) EOS x10^3 (test code = 0.03 10*3/uL 0.06-0.53 L 711-2) BASO x10^3 (test code 0.05 10*3/uL 0.01-0.09 = 704-7) Lab Interpretation Abnormal (test code = 10423-2) [facility] W/AUTO [id number] 00:06:00 Test Item Value Reference Range Interpretation [...] = MX#) 0.5 k/mm3 0.1-0.8 N TROPONIN-I [id number] 15:07:00 Test Item Value Reference Range Interpretation Comments TROPONIN-I RAPID 0.00 ng/mL 0.00-0.08 N Performed b y certified (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OP[facility]AP) Ctr Negative: < = 0.08 [...] changes in trop onin levels characteristic of DE. BASIC METABOLIC [id number] 14:56:00 Test Item Value Reference Range Interpretation [...] MG/DL 70-110 N - XR CHEST 1 [id number] 00:00:00 [facility] : 1970 Sex: M FAX: Sabi Urias MD [phone] [place]: [address]: REG Name: HOANG JOSEPH FSED : 1970 Age/S: 52/M [address] Unit #: [id number] Loc: [place] [address] Phys: Sabi Urias MD Acct: [id number] Dis Date: Status: REG ER PHONE #: Exam Date: 03/29/2022 1509 FAX #: Reason: Weakness EXAMS: CPT CODE: [id number] XR CHEST 1 V 53783 PROCEDURE INFORMATION: Exam: XR Chest Exam date [...] Avtar Lang RT(R)(CT) Trnscrd Date/Time/By: 03/29/2022 (1530) :By: GarettTTV Orig Print D/T: S: 03/29/2022 (1531) PAGE 1 Signed ReportHEPATIC FUNCTION [id number] 06:45:03 Test Item Value Reference Range Interpretation [...] (test code = 13 U/L 6-55 347) 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 Pipeline Integrity Engineer ID Philipp HOOD WCBC W/PLT COUNT & AUTO [id number] 06:26:54 Test Item Value Reference Range Interpretation [...] (BEAKER) (test code = 2801) U/S, RENAL, [id number] 19:23:00Reason for exam:->[facility] HOANG : 1970 Sex: MFINAL REPORT TECHNIQUE: Grays[employer] [...] SARS-Co V-2 (test code = target nucleic 30386-3) acids are not detected in thi s [...] SARS-CoV-2 [facility] s suspected of COVID-19 [...] revoked sooner. Fact Sheet for Healthcare Providers: [email or web address] [email or web address] S%20CoV-2/Fact%20S heets/302-3802%20S ARS-COV-2%20HEALTH CARE%20PROVIDERS%2 0FACT%20SHEET.pdf Fact Sheet for Healthcare Patients: https://www.[employer]/Documents/Xp ert%20Xpress%20SAR S%20CoV-2/Fact%20S heets/302-3801%20S ARS-COV-2%20PATIEN T%20FACT%20SHEET.p df Lab Interpretation Normal (test code = 08216-5) [facility] 19:17:07 Test Item Value Reference Interpretation Comments Range SARS-COV2/RT-PCR Negative Negative The SARS-Co V-2 (test code = target nucleic 14010-0) acids are not detected in thi s [...] revoked sooner. Fact Sheet for Healthcare Providers: https://www.[employer]/Documents/Xp ert%20Xpress%20SAR S%20CoV-2/Fact%20S heets/302-3802%20S ARS-COV-2%20HEALTH CARE%20PROVIDERS%2 0FACT%20SHEET.pdf Fact Sheet for Healthcare Patients: https://www.[employer]/Documents/Xp ert%20Xpress%20SAR S%20CoV-2/Fact%20S heets/302-3801%20S ARS-COV-2%20PATIEN T%20FACT%20SHEET.p df Lab Interpretation Normal (test code = 69261-3) [facility]22[facility]06 19:17:07 Test Item Value Reference Interpretation Comments Range SARS-COV2/RT-PCR Negative Negative The SARS-Co V-2 (test code = target nucleic 68559-0) acids are not detected in thi s [...] revoked sooner. Fact Sheet for Healthcare Providers: https://www.[employer]/Documents/Xp ert%20Xpress%20SAR S%20CoV-2/Fact%20S heets/302-3802%20S ARS-COV-2%20HEALTH CARE%20PROVIDERS%2 0FACT%20SHEET.pdf Fact Sheet for Healthcare Patients: https://www.[employer]/Documents/Xp ert%20Xpress%20SAR S%20CoV-2/Fact%20S heets/302-3801%20S ARS-COV-2%20PATIEN T%20FACT%20SHEET.p df Lab Interpretation Normal (test code = 66230-3) [facility]22-[facility]-06 19:17:07 Test Item Value Reference Interpretation Comments Range SARS-COV2/RT-PCR Negative Negative The SARS-Co V-2 (test code = target nucleic 60884-4) acids are not detected in thi s [...] revoked sooner. Fact Sheet for Healthcare Providers: https://www.[employer]/Documents/Xp ert%20Xpress%20SAR S%20CoV-2/Fact%20S heets/302-3802%20S ARS-COV-2%20HEALTH CARE%20PROVIDERS%2 0FACT%20SHEET.pdf Fact Sheet for Healthcare Patients: https://www.[employer]/Documents/Xp ert%20Xpress%20SAR S%20CoV-2/Fact%20S heets/302-3801%20S ARS-COV-2%20PATIEN T%20FACT%20SHEET.p df Lab Interpretation Normal (test code = 57371-1) [facility] 19:17:07 Test Item Value Reference Interpretation Comments Range SARS-COV2/RT-PCR Negative Negative The SARS-Co V-2 (test code = target nucleic 87396-8) acids are not detected in thi s [...] revoked sooner. Fact Sheet for Healthcare Providers: https://www.[employer]/Documents/Xp ert%20Xpress%20SAR S%20CoV-2/Fact%20S heets/302-3802%20S ARS-COV-2%20HEALTH CARE%20PROVIDERS%2 0FACT%20SHEET.pdf Fact Sheet for Healthcare Patients: https://www.[employer]/Documents/Xp ert%20Xpress%20SAR S%20CoV-2/Fact%20S heets/302-3801%20S ARS-COV-2%20PATIEN T%20FACT%20SHEET.p df Lab Interpretation Normal (test code = 50989-0) [facility]22-[facility]-06 19:17:07 Test Item Value Reference Interpretation Comments Range SARS-COV2/RT-PCR Negative Negative The SARS-Co V-2 (test code = target nucleic 98512-6) acids are not detected in thi s [...] revoked sooner. Fact Sheet for Healthcare Providers: https://www.[employer]/Documents/Xp ert%20Xpress%20SAR S%20CoV-2/Fact%20S heets/3023802%20S ARS-COV-2%20HEALTH CARE%20PROVIDERS%2 0FACT%20SHEET.pdf Fact Sheet for Healthcare Patients: https://www.[employer]/Documents/Xp ert%20Xpress%20SAR S%20CoV-2/Fact%20S heets/302-3801%20S ARS-COV-2%20PATIEN T%20FACT%20SHEET.p df Lab Interpretation Normal (test code = 32076-7) [facility]2022-[facility]-06 19:17:07 Test Item Value Reference Interpretation Comments Range SARS-COV2/RT-PCR Negative Negative The SARS-Co V-2 (test code = target nucleic 11056-4) acids are not detected in thi s [...] revoked sooner. Fact Sheet for Healthcare Providers: https://www.[employer]/Documents/Xp ert%20Xpress%20SAR S%20CoV-2/Fact%20S heets/302-3802%20S ARS-COV-2%20HEALTH CARE%20PROVIDERS%2 0FACT%20SHEET.pdf Fact Sheet for Healthcare Patients: https://www.[employer]/Documents/Xp ert%20Xpress%20SAR S%20CoV-2/Fact%20S heets/302-3801%20S ARS-COV-2%20PATIEN T%20FACT%20SHEET.p df Lab Interpretation Normal (test code = 21097-4) [facility]2022-[facility]-06 19:17:07 Test Item Value Reference Interpretation Comments Range SARS-COV2/RT-PCR Negative Negative The SARS-Co V-2 (test code = target nucleic 91451-9) acids are not detected in thi s [...] SARS-CoV-2 in a nasopharyngeal swab specimen collec adin from individual s suspected of COVID-19 by [...] revoked sooner. Fact Sheet for Healthcare Providers: https://www.[employer]/Documents/Xp ert%20Xpress%20SAR S%20CoV-2/Fact%20S heets/302-3802%20S ARS-COV-2%20HEALTH CARE%20PROVIDERS%2 0FACT%20SHEET.pdf Fact Sheet for Healthcare Patients: https://www.[employer]/Documents/Xp ert%20Xpress%20SAR S%20CoV-2/Fact%20S heets/302-3801%20S ARS-COV-2%20PATIEN T%20FACT%20SHEET.p df Lab Interpretation Normal (test code = 91744-7) [facility]2022-[facility]-06 19:17:07 Test Item Value Reference Interpretation Comments Range SARS-COV2/RT-PCR Negative Negative The SARS-Co V-2 (test code = target nucleic 56737-4) acids are not detected in thi s [...] revoked sooner. Fact Sheet for Healthcare Providers: https://www.[employer]/Documents/Xp ert%20Xpress%20SAR S%20CoV-2/Fact%20S heets/3023802%20S ARS-COV-2%20HEALTH CARE%20PROVIDERS%2 0FACT%20SHEET.pdf Fact Sheet for Healthcare Patients: https://www.[employer]/Documents/Xp ert%20Xpress%20SAR S%20CoV-2/Fact%20S heets/3023801%20S ARS-COV-2%20PATIEN T%20FACT%20SHEET.p df Lab Interpretation Normal (test code = 89974-8) [facility]2022-03-06 19:17:07 Test Item Value Reference Interpretation Comments Range SARS-COV2/RT-PCR Negative Negative The SARS-Co V-2 (test code = target nucleic 79938-2) acids are not detected in thi s [...] revoked sooner. Fact Sheet for Healthcare Providers: https://www.[employer]/Documents/Xp ert%20Xpress%20SAR S%20CoV-2/Fact%20S heets/302-3802%20S ARS-COV-2%20HEALTH CARE%20PROVIDERS%2 0FACT%20SHEET.pdf Fact Sheet for Healthcare Patients: https://www.[employer]/Documents/Xp ert%20Xpress%20SAR S%20CoV-2/Fact%20S heets/302-3801%20S ARS-COV-2%20PATIEN T%20FACT%20SHEET.p df Lab Interpretation Normal (test code = 96031-2) [facility]2022-03-06 19:17:07 Test Item Value Reference Interpretation Comments Range SARS-COV2/RT-PCR Negative Negative The SARS-Co V-2 (test code = target nucleic 23723-9) acids are not detected in thi s [...] revoked sooner. Fact Sheet for Healthcare Providers: https://www.[employer]/Documents/Xp ert%20Xpress%20SAR S%20CoV-2/Fact%20S heets/302-3802%20S ARS-COV-2%20HEALTH CARE%20PROVIDERS%2 0FACT%20SHEET.pdf Fact Sheet for Healthcare Patients: https://www.[employer]/Documents/Xp ert%20Xpress%20SAR S%20CoV-2/Fact%20S heets/302-3801%20S ARS-COV-2%20PATIEN T%20FACT%20SHEET.p df Lab Interpretation Normal (test code = 29744-5) [facility]2022-03-06 19:17:07 Test Item Value Reference Interpretation Comments Range SARS-COV2/RT-PCR Negative Negative The SARS-Co V-2 (test code = target nucleic 89602-1) acids are not detected in thi s [...] revoked sooner. Fact Sheet for Healthcare Providers: https://www.[employer]/Documents/Xp ert%20Xpress%20SAR S%20CoV-2/Fact%20S heets/302-3802%20S ARS-COV-2%20HEALTH CARE%20PROVIDERS%2 0FACT%20SHEET.pdf Fact Sheet for Healthcare Patients: https://www.[employer]/Documents/Xp ert%20Xpress%20SAR S%20CoV-2/Fact%20S heets/302-3801%20S ARS-COV-2%20PATIEN T%20FACT%20SHEET.p df Lab Interpretation Normal (test code = 17611-2) [facility]2022-03-06 19:17:07 Test Item Value Reference Interpretation Comments Range SARS-COV2/RT-PCR Negative Negative The SARS-Co V-2 (test code = target nucleic 95539-1) acids are not detected in thi s [...] revoked sooner. Fact Sheet for Healthcare Providers: https://www.[employer]/Documents/Xp ert%20Xpress%20SAR S%20CoV-2/Fact%20S heets/302-3802%20S ARS-COV-2%20HEALTH CARE%20PROVIDERS%2 0FACT%20SHEET.pdf Fact Sheet for Healthcare Patients: https://www.[employer]/Documents/Xp ert%20Xpress%20SAR S%20CoV-2/Fact%20S heets/302-3801%20S ARS-COV-2%20PATIEN T%20FACT%20SHEET.p df Lab Interpretation Normal (test code = 89715-7) [facility]2022-03-06 19:17:07 Test Item Value Reference Interpretation Comments Range SARS-COV2/RT-PCR Negative Negative The SARS-Co V-2 (test code = target nucleic 01496-6) acids are not detected in thi s [...] revoked sooner. Fact Sheet for Healthcare Providers: https://www.[employer]/Documents/Xp ert%20Xpress%20SAR S%20CoV-2/Fact%20S heets/302-3802%20S ARS-COV-2%20HEALTH CARE%20PROVIDERS%2 0FACT%20SHEET.pdf Fact Sheet for Healthcare Patients: https://www.[employer]/Documents/Xp ert%20Xpress%20SAR S%20CoV-2/Fact%20S heets/302-3801%20S ARS-COV-2%20PATIEN T%20FACT%20SHEET.p df Lab Interpretation Normal (test code = 09077-2) [facility]2022-[facility]-06 19:17:07 Test Item Value Reference Interpretation Comments Range SARS-COV2/RT-PCR Negative Negative The SARS-Co V-2 (test code = target nucleic 65665-7) acids are not detected in thi s [...] revoked sooner. Fact Sheet for Healthcare Providers: https://www.[employer]/Documents/Xp ert%20Xpress%20SAR S%20CoV-2/Fact%20S heets/302-3802%20S ARS-COV-2%20HEALTH CARE%20PROVIDERS%2 0FACT%20SHEET.pdf Fact Sheet for Healthcare Patients: https://[employer]Documents/Xp ert%20Xpress%20SAR S%20CoV-2/Fact%20S heets/302-3801%20S ARS-COV-2%20PATIEN T%20FACT%20SHEET.p df Lab Interpretation Normal (test code = 87028-6) [facility])2022-03-06 19:17:07 Test Item Value Reference Range Interpretation Comments SARS-COV2/RT-PCR Negative Negative The SARS-Co V-2 target (test code = nucleic acids a re not 2592438) detected in thi s specimen. Negative result [...] revoked sooner. Fact Sheet for Healthcare Providers: https://www.[employer]/Documents/Xpert%20Xpress%20SARS%20CoV-2/Fact%20Sheets/302-3802%42DFJJ-TON-2%20 HEALTHCARE%20PROVIDERS%20FACT%20SHEET.pdf Fact Sheet for Healthcare Patients: https://www.[employer]/Documents/Xpert%20Xp ress%20SARS%20CoV-2/Fact%20Sheets/3023801%81QBDP-KNL-7%20PATIENT%20FACT%20SHEET .pdfCREATINE KINASE (CK)2022-03-06 16:19:14 Test Item Value Reference Range Interpretation Comments CREATINE KINASE TOTAL (BEAKER) (test 141 U/L 29-200 code = 380) Pipeline Integrity Engineer ID - BST4, [id number] 15:13:16 Test Item Value Reference Range Interpretation Comments FREE T4 (BEAKER) (test code = 655) 0.95 ng/dL 0.70-1.48 Pipeline Integrity Engineer ID - BSTSH/FREE T4 IF [id number] 15:13:16 Test Item Value Reference Range Interpretation Comments THYROID STIMULATING HORMONE 2.060 uIU/mL 0.350-4.940 (BEAKER) (test code = 772) Pipeline Integrity Engineer ID - BSB-TYPE NATRIURETIC FACTOR (BNP)2022-03-06 14:26:30 Test Item Value Reference Range Interpretation Comments B-TYPE NATRIURETIC PEPTIDE (BEAKER) < pg/mL 0-100 (test code = 700) Pipeline Integrity Engineer ID - JSHIGH SENSITIVITY TROPONIN [id number] 14:14:54 Test Item Value Reference Range Interpretation Comments HIGH SENSITIVITY < pg/ml See_Comment [Automated message] TROPONIN I (test code = The system which 5024990) generated this result transmitted ref erence range: <=35. Th e reference range was not used to interpr et this result as normal/abnormal . Pipeline Integrity Engineer ID - JSThe DAY TREATMENT CLINICIAN/ART THERAPIST STAT High Sensitivity Troponin-I results should be used in conjunctionwith other diagnostic information such as ECG, clinical observations and information, and patient symptoms to aid in the diagnosis of DE.RAD, CHEST, 1 VIEW, NON [id number] 14:10:00Reason for exam:- >NEUROLOGIC PROBLEMShould this be performed at the bedside?->Yes [facility] 1970 Sex: MFINAL REPORT Chest, 1 view, 03/06/2022 2:03 PM. History: Neurologic problem. Comparison: 03/28/2019. Discussion: The cardiomediastinal silhouette and pulmonary vasculature are within normal limits for a portable exam. The lungs are clear without evidence of consolidation or effusion. The soft tissues and osseous structures are intact. IMPRESSION: No acute cardiopulmonary abnormality. Signed: [facility] Verified Date/Time: 03/06/2022 14:10:44 REHENSIVE METABOLIC [id number] 14:08:22 Test Item Value Reference Range Interpretation [...] S NOT APPLICABLE FOR DIALYSIS PATIEN TS. Pipeline Integrity Engineer ID - [id number] 14:07:49 Test Item Value Reference Range Interpretation Comments MAGNESIUM (BEAKER) (test code = 2.0 mg/dL 1.6-2.6 627) Pipeline Integrity Engineer ID - [id number] 14:07:49 Test Item Value Reference Range Interpretation Comments PHOSPHORUS (BEAKER) (test code = 5.6 mg/dL 2.3-4.7 H 604) Pipeline Integrity Engineer ID - JSLACTIC ACID, [id number] 13:51:04 Test Item Value Reference Range Interpretation Comments LACTATE BLOOD VENOUS 1.32 mmol/L 0.50-2.20 Specime n slightly (2) (BEAKER) (test hemolyzed code = 2439) Pipeline Integrity Engineer ID - JSCBC W/PLT COUNT & AUTO [id number] 13:47:24 Test Item Value Reference Range Interpretation [...] (BEAKER) (test code = 2801) Coronavirus, CoVID-19, [id number] 01:07:20 Test Item Value Reference Range Interpretation Comments COVID-19 (SARS-COV-2) Not Detected Not Detected INTERP RETATION: No (test code = 90856-7) detect able levels of SARS-CoV-2 Coronavirus (COVID-19) [...] SARS-CoV-2 mole cular diagnostic assa y utilizes Medical Imaging Director Mediated Amplification ( TMA) technology to r apidly detect the SARS -CoV-2 (COVID-19) viru s from respiratory adriana ples. In accordance w ith the FDA's kamran nce document "Polic y for Diagnostic Test s for Coronavirus Disease-2019 du [facility] the Public [facility] Emergency", thi s test was developed, and its performance characteristics were verified by the [facility] molecular diagn ostics laboratory and is authorized for clinical diagno stic use. This labor atory is certified un [place] the Clinical Laboratory Improvement Amendments (CLI A) as qualified to pe rform high complexity clinical labora tory testing. Lab Interpretation Normal (test code = 15397-2) [facility] [id number] 01:07:20 Test Item Value Reference Range Interpretation Comments COVID-19 (SARS-COV-2) Not Detected Not Detected INTERP RETATION: No (test code = 07761-6) detect able levels of SARS-CoV-2 Coronavirus (COVID-19) [...] SARS-CoV-2 mole cular diagnostic assa y utilizes Medical Imaging Director Mediated Amplification ( TMA) technology to r apidly detect the SARS -CoV-2 (COVID-19) viru s from respiratory adriana ples. In accordance w ith the FDA's kamran nce document "Polic y for Diagnostic Test s for Coronavirus Disease-2019 [facility] the [facility] Emergency", thi s test was developed, and its performance characteristics were verified by the [facility] molecular diagn ostics laboratory and is authorized for clinical diagno stic use. This labor atory is certified un [place] the Clinical Laboratory Improvement Amendments (CLI A) as qualified to pe rform high complexity clinical labora tory testing. Lab Interpretation Normal (test code = 44985-3) [facility]-19, [id number] 01:07:20 Test Item Value Reference Range Interpretation Comments COVID-19 (SARS-COV-2) Not Detected Not Detected INTERP RETATION: No (test code = 45390-2) detect able levels of SARS-CoV-2 Coronavirus (COVID-19) [...] SARS-CoV-2 mole cular diagnostic assa y utilizes Medical Imaging Director Mediated Amplification ( TMA) technology to r apidly detect the SARS -CoV-2 (COVID-19) viru s from respiratory adriana ples. In accordance w ith the FDA's kamran nce document "Polic y for Diagnostic Test s for Coronavirus Disease-2019 [facility] the Public [facility] Emergency", thi s test was developed, and its performance characteristics were verified by the [facility] molecular diagn ostics laboratory and is authorized for clinical diagno stic use. This labor atory is certified un [place] the Clinical Laboratory Improvement Amendments (CLI A) as qualified to pe rform high complexity clinical labora tory testing. Lab Interpretation Normal (test code = 07623-0) [facility]-19, [id number] 01:07:20 Test Item Value Reference Range Interpretation Comments COVID-19 (SARS-COV-2) Not Detected Not Detected INTERP RETATION: No (test code = 42813-2) detect able levels of SARS-CoV-2 Coronavirus (COVID-19) [...] SARS-CoV-2 mole cular diagnostic assa y utilizes Medical Imaging Director Mediated Amplification ( TMA) technology to r apidly detect the SARS -CoV-2 (COVID-19) viru s from respiratory adriana ples. In accordance w ith the FDA's kamarn nce document "Polic y for Diagnostic Test s for Coronavirus Disease-2019 [facility] the Public [facility] Emergency", thi s test was developed, and its performance characteristics were verified by the [facility] molecular diagn ostics laboratory and is authorized for clinical diagno stic use. This labor atory is certified un [place] the Clinical Laboratory Improvement Amendments (CLI A) as qualified to pe rform high complexity clinical labora tory testing. Lab Interpretation Normal (test code = 54490-2) Maged Ruelasronavirus, CoVID-19, [id number] 01:07:20 Test Item Value Reference Range Interpretation Comments COVID-19 (SARS-COV-2) Not Detected Not Detected INTERP RETATION: No (test code = 01352-9) detect able levels of SARS-CoV-2 Coronavirus (COVID-19) [...] SARS-CoV-2 mole cular diagnostic assa y utilizes Medical Imaging Director Mediated Amplification ( TMA) technology to r apidly detect the SARS -CoV-2 (COVID-19) viru s from respiratory adriana ples. In accordance w ith the FDA's kamran nce document "Polic y for Diagnostic Test s for Coronavirus Disease-2019 [facility] the [facility]", thi s test was developed, and its performance characteristics were verified by the [facility] molecular diagn ostics laboratory and is authorized for clinical diagno stic use. This labor atory is certified un [place] the Clinical Laboratory Improvement Amendments (CLI A) as qualified to pe rform high complexity clinical labora tory testing. Lab Interpretation Normal (test code = 62851-6) Maged Ruelasronavirus, CoVID-19, [id number] 01:07:20 Test Item Value Reference Range Interpretation Comments COVID-19 (SARS-COV-2) Not Detected Not Detected INTERP RETATION: No (test code = 51776-0) detect able levels of SARS-CoV-2 Coronavirus (COVID-19) [...] SARS-CoV-2 mole cular diagnostic assa y utilizes Medical Imaging Director Mediated Amplification ( TMA) technology to r apidly detect the SARS -CoV-2 (COVID-19) viru s from respiratory adriana ples. In accordance w ith the FDA's kamran nce document "Polic y for Diagnostic Test s for Coronavirus Disease-2019 [facility] the [facility] Emergency", thi s test was developed, and its performance characteristics were verified by the [facility] molecular diagn ostics laboratory and is authorized for clinical diagno stic use. This labor atory is certified un [place] the Clinical Laboratory Improvement Amendments (CLI A) as qualified to pe rform high complexity clinical labora tory testing. Lab Interpretation Normal (test code = 74523-3) [facility], [id number] 01:07:20 Test Item Value Reference Range Interpretation Comments COVID-19 (SARS-COV-2) Not Detected Not Detected INTERP RETATION: No (test code = 41063-2) detect able levels of SARS-CoV-2 Coronavirus (COVID-19) [...] SARS-CoV-2 mole cular diagnostic assa y utilizes Medical Imaging Director Mediated Amplification ( TMA) technology to r apidly detect the SARS -CoV-2 (COVID-19) viru s from respiratory adriana ples. In accordance w ith the FDA's kamran nce document "Polic y for Diagnostic Test s for Coronavirus Disease-2019 [facility] [place] the [facility] Emergency", thi s test was developed, and its performance characteristics were verified by the [facility] molecular diagn ostics laboratory and is authorized for clinical diagno stic use. This labor atory is certified un [place] the Clinical Laboratory Improvement Amendments (CLI A) as qualified to pe rform high complexity clinical labora tory testing. Lab Interpretation Normal (test code = 23702-9) [facility]-19, [id number] 01:07:20 Test Item Value Reference Range Interpretation Comments COVID-19 (SARS-COV-2) Not Detected Not Detected INTERP RETATION: No (test code = 66493-2) detect able levels of SARS-CoV-2 Coronavirus (COVID-19) [...] SARS-CoV-2 mole cular diagnostic assa y utilizes Medical Imaging Director Mediated Amplification ( TMA) technology to r apidly detect the SARS -CoV-2 (COVID-19) viru s from respiratory adriana ples. In accordance w ith the FDA's kamran nce document "Polic y for Diagnostic Test s for Coronavirus Disease-2019 du [place] the Public [facility] Emergency", thi s test was developed, and its performance characteristics were verified by the [facility] molecular diagn ostics laboratory and is authorized for clinical diagno stic use. This labor atory is certified un [place] the Clinical Laboratory Improvement Amendments (CLI A) as qualified to pe rform high complexity clinical labora tory testing. Lab Interpretation Normal (test code = 09892-8) Kenn[facility] Surajronavirus, CoVID-19, [id number] 01:07:20 Test Item Value Reference Range Interpretation Comments COVID-19 (SARS-COV-2) Not Detected Not Detected INTERP RETATION: No (test code = 87362-4) detect able levels of SARS-CoV-2 Coronavirus (COVID-19) [...] SARS-CoV-2 mole cular diagnostic assa y utilizes Medical Imaging Director Mediated Amplification ( TMA) technology to r apidly detect the SARS -CoV-2 (COVID-19) viru s from respiratory adriana ples. In accordance w ith the FDA's kamran nce document "Polic y for Diagnostic Test s for Coronavirus Disease-2019 [facility] the Public [facility] Emergency", thi s test was developed, and its performance characteristics were verified by the [facility] molecular diagn ostics laboratory and is authorized for clinical diagno stic use. This labor atory is certified un [place] the Clinical Laboratory Improvement Amendments (CLI A) as qualified to pe rform high complexity clinical labora tory testing. Lab Interpretation Normal (test code = 04277-1) [facility] Surajronavirus, CoVID-19, [id number] 01:07:20 Test Item Value Reference Range Interpretation Comments COVID-19 (SARS-COV-2) Not Detected Not Detected INTERP RETATION: No (test code = 18636-2) detect able levels of SARS-CoV-2 Coronavirus (COVID-19) [...] SARS-CoV-2 mole cular diagnostic assa y utilizes Medical Imaging Director Mediated Amplification ( TMA) technology to r apidly detect the SARS -CoV-2 (COVID-19) viru s from respiratory adriana ples. In accordance w ith the FDA's kamran nce document "Polic y for Diagnostic Test s for Coronavirus Disease-2019 [facility] the [facility] Emergency", thi s test was developed, and its performance characteristics were verified by the [facility] molecular diagn ostics laboratory and is authorized for clinical diagno stic use. This labor atory is certified un est[place] the Clinical Laboratory Improvement Amendments (CLI A) as qualified to pe rform high complexity clinical labora tory testing. Lab Interpretation Normal (test code = 44605-1) [facility], [facility]19, [id number] 01:07:20 Test Item Value Reference Range Interpretation Comments COVID-19 (SARS-COV-2) Not Detected Not Detected INTERP RETATION: No (test code = 08696-6) detect able levels of SARS-CoV-2 Coronavirus (COVID-19) [...] SARS-CoV-2 mole cular diagnostic assa y utilizes Medical Imaging Director Mediated Amplification ( TMA) technology to r apidly detect the SARS -CoV-2 (COVID-19) viru s from respiratory adriana ples. In accordance w ith the FDA's kamran nce document "Polic y for Diagnostic Test s for Coronavirus Disease-2019 du [facility] the Public [facility] Emergency", thi s test was developed, and its performance characteristics were verified by the [facility] molecular diagn ostics laboratory and is authorized for clinical diagno stic use. This labor atory is certified un [place] the Clinical Laboratory Improvement Amendments (CLI A) as qualified to pe rform high complexity clinical labora tory testing. Lab Interpretation Normal (test code = 24019-5) [facility], CoVID-19, [id number] 01:07:20 Test Item Value Reference Range Interpretation Comments COVID-19 (SARS-COV-2) Not Detected Not Detected INTERP RETATION: No (test code = 60680-7) detect able levels of SARS-CoV-2 Coronavirus (COVID-19) [...] SARS-CoV-2 mole cular diagnostic assa y utilizes Medical Imaging Director Mediated Amplification ( TMA) technology to r apidly detect the SARS -CoV-2 (COVID-19) viru s from respiratory adriana ples. In accordance w ith the FDA's kamran nce document "Polic y for Diagnostic Test s for Coronavirus Disease-2019 du [facility] the Public [facility] Emergency", thi s test was developed, and its performance characteristics were verified by the [facility] molecular diagn ostics laboratory and is authorized for clinical diagno stic use. This labor atory is certified un [place] the Clinical Laboratory Improvement Amendments (CLI A) as qualified to pe rform high complexity clinical labora tory testing. Lab Interpretation Normal (test code = 27403-4) [facility], CoVID-19, [id number] 01:07:20 Test Item Value Reference Range Interpretation Comments COVID-19 (SARS-COV-2) Not Detected Not Detected INTERP RETATION: No (test code = 40887-5) detect able levels of SARS-CoV-2 Coronavirus (COVID-19) [...] SARS-CoV-2 mole cular diagnostic assa y utilizes Medical Imaging Director Mediated Amplification ( TMA) technology to r apidly detect the SARS -CoV-2 (COVID-19) viru s from respiratory adriana ples. In accordance w ith the FDA's kamran nce document "Polic y for Diagnostic Test s for Coronavirus Disease-2019 du [place] the Public [facility] Emergency", thi s test was developed, and its performance characteristics were verified by the [facility] molecular diagn ostics laboratory and is authorized for clinical diagno stic use. This labor atory is certified un [place] the Clinical Laboratory Improvement Amendments (CLI A) as qualified to pe rform high complexity clinical labora tory testing. Lab Interpretation Normal (test code = 23744-5) [facility], CoVID-19, [id number] 01:07:20 Test Item Value Reference Range Interpretation Comments COVID-19 (SARS-COV-2) Not Detected Not Detected INTERP RETATION: No (test code = 98192-5) detect able levels of SARS-CoV-2 Coronavirus (COVID-19) [...] SARS-CoV-2 mole cular diagnostic assa y utilizes Medical Imaging Director Mediated Amplification ( TMA) technology to r apidly detect the SARS -CoV-2 (COVID-19) viru s from respiratory adriana ples. In accordance w ith the FDA's kamran nce document "Polic y for Diagnostic Test s for Coronavirus Disease-2019 du [facility] the [facility] Emergency", thi s test was developed, and its performance characteristics were verified by the [facility] molecular diagn ostics laboratory and is authorized for clinical diagno stic use. This labor atory is certified un [place] the Clinical Laboratory Improvement Amendments (CLI A) as qualified to pe rform high complexity clinical labora tory testing. Lab Interpretation Normal (test code = 14328-2) [facility], [facility]-19, [id number] 01:07:20 Test Item Value Reference Range Interpretation Comments COVID-19 (SARS-COV-2) Not Detected Not Detected INTERP RETATION: No (test code = 15070-4) detect able levels of SARS-CoV-2 Coronavirus (COVID-19) [...] SARS-CoV-2 mole cular diagnostic assa y utilizes Medical Imaging Director Mediated Amplification ( TMA) technology to r apidly detect the SARS -CoV-2 (COVID-19) viru s from respiratory adriana ples. In accordance w ith the FDA's kamran nce document "Polic y for Diagnostic Test s for Coronavirus Disease-2019 du [facility] the Public [facility] Emergency", thi s test was developed, and its performance characteristics were verified by the [facility] molecular diagn ostics laboratory and is authorized for clinical diagno stic use. This labor atory is certified un [place] the Clinical Laboratory Improvement Amendments (CLI A) as qualified to pe rform high complexity clinical labora tory testing. Lab Interpretation Normal (test code = 35819-7) [facility] ORF1ab Resp Ql OLENA+nidtb1916-73-30 01:07:20 Test Item Value Reference Range Interpretation Comments Hospitalized? (test No code = 18380-7) ICU? (test code = No 95217-6) Symptomatic as No defined by CDC? (test code = 01953-9) Employed in No Healthcare? (test code = 46767-1) Resident in a No congregate care setting (including nursing homes, residential care for people with intellectual and developmental disabilities, psychiatric treatment facilities, group homes, board and care homes, homeless long term, foster care or other): (test code = 59660-5) SARS-CoV-2 ORF1ab NOT DETECTED Not Detected INTERPRETA TION: No Resp Ql OLENA+probe detectable levels of (test code = SARS-CoV-2 08345-6) Coronavirus (COVID-19) were present in this patient's [...] SARS-CoV-2 mole cular diagnostic assa y utilizes Medical Imaging Director Mediated Amplification ( TMA) technology to r apidly detect the SARS -CoV-2 (COVID-19) viru s from respiratory adriana ples. In accordance with\\XC2A0\\the FDA's guidance docume nt "Policy for Diagnostic Test s for Coronavirus Disease-2019 du [facility] the Public Heal th Emergency", amalia s test was developed, and its performance characteristics were verified by the [facility] molecular diagn ostics laboratory and is authorized for clinical diagno stic use. \\XC2A0\\Thi s laboratory is certified under the Clinical Labora tory Improvement Amendments (CLI A) as qualified to pe rform high complexity clinical labora tory testing. [facility] feeimq0330-86-26 08:09:01 Test Item Value Reference Range Interpretation Comments Glucose POC (test code = 12956488) 85 mg/dL 74-106 Lab Interpretation (test code = Normal 15177-5) [facility] GLUCOSE POC docked cogsru6153-54-12 08:09:01 Test Item Value Reference Range Interpretation Comments Glucose POC (test code = 79014890) 85 mg/dL 74-106 Lab Interpretation (test code = Normal 86475-0) [facility] GLUCOSE POC docked ardqwe9508-98-21 08:09:01 Test Item Value Reference Range Interpretation Comments Glucose POC (test code = 63934777) 85 mg/dL 74-106 Lab Interpretation (test code = Normal 58935-9) [facility] GLUCOSE POC docked ijggxu0088-60-38 08:09:01 Test Item Value Reference Range Interpretation Comments Glucose POC (test code = 31311589) 85 mg/dL 74-106 Lab Interpretation (test code = Normal 70495-8) [facility] GLUCOSE POC docked mdwrny9000-57-33 08:09:01 Test Item Value Reference Range Interpretation Comments Glucose POC (test code = 52991070) 85 mg/dL 74-106 Lab Interpretation (test code = Normal 02287-0) [facility] tmjtox8337-61-10 08:09:01 Test Item Value Reference Range Interpretation Comments Glucose POC (test code = 78468054) 85 mg/dL 74-106 Lab Interpretation (test code = Normal 55739-1) [facility] ykaomr9870-19-21 08:09:01 Test Item Value Reference Range Interpretation Comments Glucose POC (test code = 25655804) 85 mg/dL 74-106 Lab Interpretation (test code = Normal 28505-4) [facility] fawdpm2825-16-27 08:09:01 Test Item Value Reference Range Interpretation Comments Glucose POC (test code = 27288480) 85 mg/dL 74-106 Lab Interpretation (test code = Normal 79849-4) [facility] qbicsx7089-93-99 08:09:01 Test Item Value Reference Range Interpretation Comments Glucose POC (test code = 98001939) 85 mg/dL 74-106 Lab Interpretation (test code = Normal 01728-5) [facility] jgthim9170-01-38 08:09:01 Test Item Value Reference Range Interpretation Comments Glucose POC (test code = 78632672) 85 mg/dL 74-106 Lab Interpretation (test code = Normal 56762-1) [facility] ifenuu8879-32-48 08:09:01 Test Item Value Reference Range Interpretation Comments Glucose POC (test code = 41041093) 85 mg/dL 74-106 Lab Interpretation (test code = Normal 47345-3) [facility] sdclrw1300-18-54 08:09:01 Test Item Value Reference Range Interpretation Comments Glucose POC (test code = 01215972) 85 mg/dL 74-106 Lab Interpretation (test code = Normal 41862-5) [facility] gxqazq1432-16-52 08:09:01 Test Item Value Reference Range Interpretation Comments Glucose POC (test code = 70165316) 85 mg/dL 74-106 Lab Interpretation (test code = Normal 91516-4) [facility] fyjhfa0571-90-79 08:09:01 Test Item Value Reference Range Interpretation Comments Glucose POC (test code = 29555926) 85 mg/dL 74-106 Lab Interpretation (test code = Normal 90292-6) [facility] GLUCOSE POC docked rkjrxa4335-65-47 08:09:01 Test Item Value Reference Range Interpretation Comments Glucose POC (test code = 26693273) 85 mg/dL 74-106 Lab Interpretation (test code = Normal 26979-0) [facility]zV-[facility] ORF1ab Resp Ql OLENA+kgdbl0422-00-52 23:25:40 Test Item Value Reference Range Interpretation Comments Hospitalized? (test No code = 56332-1) ICU? (test code = No 62952-5) Symptomatic as No defined by CDC? (test code = 90474-9) Employed in No Healthcare? (test code = 58399-7) Resident in a No congregate care setting (including nursing homes, residential care for people with intellectual and developmental disabilities, psychiatric treatment facilities, group homes, board and care homes, homeless long term, foster care or other): (test code = 23430-6) SARS-CoV-2 ORF1ab NOT DETECTED Not Detected INTERPRETA TION: No Resp Ql OLENA+probe detectable levels of (test code = SARS-CoV-2 59104-3) Coronavirus (COVID-19) were present in this patient's [...] SARS-CoV-2 mole cular diagnostic assa y utilizes Medical Imaging Director Mediated Amplification ( TMA) technology to r apidly detect the SARS -CoV-2 (COVID-19) viru s from respiratory adriana ples. In accordance with\\XC2A0\\the FDA's guidance docume nt "Policy for Diagnostic Test s for Coronavirus Disease-2019 du [facility] the Public [facility]al [facility] Emergency", thi s test was developed, and its performance characteristics were verified by the [facility] molecular diagn ostics laboratory and is authorized for clinical diagno stic use. \\XC2A0\\Thi s laboratory is certified under the Clinical Labora tory Improvement Amendments (CLI A) as qualified to pe rform high complexity clinical labora tory testing. [facility]12 Lead [id number] 15:46:1012 LEAD EKG FOR [facility] Test Date: 6060-96-95Mpi Name: DORA JOSEPH Department: 5ECIPatient ID: [id number] Room: Gender: M Clinical Trial Manager: [id number]: 1970 Requested By: SUSHIL Cho Number: [id number] Reading MD: Rene Patterson MeasurementsIntervals [place] Rate: 61 P: 72PR: 152 QRS: 55QRSD: 106 T: 63QT: 398 QTc: 400 Interpretive StatementsSINUS RHYTHMPOSSIBLE RIGHT VENTRICULAR CONDUCTION DELAY [RSR (QR) IN V1/V2]Electronically Signed On 01-22-2022 8:30:45 CDT by Rene Amazing Global TechnologiesMer[facility] ArkansasC3DNA [place] [address] Lead [id number] 15:46:1012 LEAD EKG FOR [facility] Test Date: 1590-31-03Vjv Name: DORA JOSPEH Department: 5ECIPatient ID: [id number] Room: Gender: M Clinical Trial Manager: [id number]: 1970 Requested By: SUSHIL Cho Number: [id number] Reading MD: Rene Patterson MeasurementsIntervals [place] Rate: 61 P: 72PR: 152 QRS: 55QRSD: 106 T: 63QT: 398 QTc: 400 Interpretive StatementsSINUS RHYTHMPOSSIBLE RIGHT VENTRICULAR CONDUCTION DELAY [RSR (QR) IN V1/V2]Electronically Signed On 01-22-2022 8:30:45 CDT by Rene [employer] [place] [address] Lead [id number] 15:46:1012 LEAD EKG FOR [facility] Test Date: 7840-19-66Izv Name: DORA JOSEPH Department: 5ECIPatient ID: [id number] Room: Gender: M Clinical Trial Manager: [id number]: 1970 Requested By: SUSHIL Cho Number: [id number] Reading MD: Rene Patterson MeasurementsIntervals [place] Rate: 61 P: 72PR:152 QRS: 55QRSD: 106 T: 63QT: 398 QTc: 400 Interpretive StatementsSINUS RHYTHMPOSSIBLE RIGHT VENTRIC ULAR CONDUCTION DELAY [RSR (QR) IN V1/V2]Electronically Signed On 01-22-2022 8:30:45 CDT by Rene Valle Hlwijl80 Lead [id number] 15:46:1012 LEAD EKG FOR [facility] Test Date: 7063-90-23Jku Name: DORA JOSEPH Department: 5ECIPatient ID: [id number] Room: Gender: M Clinical Trial Manager: [id number]: 1970 Requested By: SUSHIL Cho Number: [id number] Reading MD: Rene Patterson MeasurementsIntervals [place] Rate: 61 P: 72PR: 152 QRS: 55QRSD: 106 T: 63QT: 398 QTc: 400 Interpretive StatementsSINUS RHYTHMPOSSIBLE RIGHT VENTRICULAR CONDUCTION DELAY [RSR (QR) IN V1/V2]Electronically Signed On 01-22-2022 8:30:45 CDT by Rene Valle Ypuchw14 Lead [id number] 15:46:1012 LEAD EKG FOR [facility] Test Date: 2805-85-01Cuf Name: DORA JOSEPH Department: 5ECIPatient ID: [id number] Room: Gender: M Clinical Trial Manager: [id number]: 1970 Requested By: SUSHIL Cho Number: [id number] Reading MD: Rene Patterson MeasurementsIntervals [place] Rate: 61 P: 72PR : 152 QRS: 55QRSD: 106 T: 63QT: 398 QTc: 400 Interpretive StatementsSINUS RHYTHMPOSSIBLE RIGHT VENTRICULAR CONDUCTION DELAY [RSR (QR) IN V1/V2]Electronically Signed On 01-22-2022 8:30:45 CDT by Rene HerMendel [employer]12 Lead [id number] 15:46:1012 LEAD EKG FOR [facility] Test Date: 1192-12-20Dca Name: DORA JOSEPH Department: 5ECIPatient ID: [id number] Room: Gender: M Clinical Trial Manager: [id number]: 1970 Requested By: SUSHIL Cho Number: [id number] Reading MD: Rene Patterson MeasurementsIntervals [place] Rate: 61 P: 72PR: 152 QRS: 55QRSD: 106 T: 63QT: 398 QTc: 400 Interpretive StatementsSINUS RHYTHMPOSSIBLE RIGHT VENTRICULAR CONDUCTION DELAY [RSR (QR) IN V1/V2]Electronically Signed On 01-22-2022 8:30:45 CDT by [facility] Qhzgrs77 Lead [id number] 15:46:1012 LEAD EKG FOR [facility] Test Date: 6255-96-70Uld Name: DORA JOSEPH Department: 5EPatient ID: [id number] Room: Gender: M Clinical Trial Manager: [id number]: 1970 Requested By: SUSHIL Cho Number: [id number] Reading MD: Rene Patterson MeasurementsIntervals [place] Rate: 61 P: 72PR: 152 QRS: 55QRSD: 106 T: 63QT: 398 QTc: 400 Interpretive StatementsSINUS RHYTHMPOSSIBLE RIGHT VENTRI CULAR CONDUCTION DELAY [RSR (QR) IN V1/V2]Electronically Signed On 01-22-2022 8:30:45 CDT by Rene Valle Ifjbme07 Lead [id number] 15:46:1012 LEAD EKG FOR [facility] Test Date: 6893-60-57Kdz Name: DORA JOSEPH Department: 5ECIPatient ID: [id number] Room: Gender: M Clinical Trial Manager: [id number]: 1970 Requested By: SUSHIL Cho Number: [id number] Reading : Rene Patterson MeasurementsIntervals [place] Rate: 61 P: 72PR: 152 QRS: 55QRSD: 106 T: 63QT: 398 QTc: 400 Interpretive StatementsSINUS RHYTHMPOSSIBLE RIGHT VENTRICULAR CONDUCTION DELAY [RSR (QR) IN V1/V2]Electronically Signed On 01-22-2022 8:30:45 CDT by [place] [address] Lead [id number] 15:46:1012 LEAD EKG FOR [facility] Test Date: 8594-71-51Jzv Name: DORA JOSEPH Department: 5ECIPatient ID: [id number] Room: Gender: M Clinical Trial Manager: [id number]: 1970 Requested By: SUSHIL Cho Number: [id number] Reading MD: Rene Patterson MeasurementsIntervals [place] Rate: 61 P: 72PR : 152 QRS: 55QRSD: 106 T: 63QT: 398 QTc: 400 Interpretive StatementsSINUS RHYTHMPOSSIBLE RIGHT VENTRICULAR CONDUCTION DELAY [RSR (QR) IN V1/V2]Electronically Signed On 01-22-2022 8:30:45 CDT by [facility] HospitalintroNetworksAnthony [place] [address] Lead [id number] 15:46:1012 LEAD EKG FOR [facility] Test Date: 7616-30-05Kle Name: DORA JOSEPH Department: 5ECIPatient ID: [id number] Room: Gender: M Clinical Trial Manager: [id number]: 1970 Requested By: SUSHIL Cho Number: [id number] Reading MD: Rene Patterson MeasurementsIntervals [place] Rate: 61 P: 72PR: 152 QRS: 55QRSD: 106 T: 63QT: 398 QTc: 400 Interpretive StatementsSINUS RHYTHMPOSSIBLE RIGHT VENTRICULAR CONDUCTION DELAY [RSR (QR) IN V1/V2]Electronically Signed On 01-22-2022 8:30:45 CDT by [facility]12 Lead [id number] 15:46:1012 LEAD EKG FOR [facility] Test Date: 8031-42-16Apl Name: DORA JOSEPH Department: 5ECIPatient ID: [id number] Room: Gender: M Clinical Trial Manager: [id number]: 1970 Requested By: SUSHIL Cho Number: [id number] Reading MD: Rene Patterson MeasurementsIntervals [place] Rate: 61 P: 72PR: 152 QRS: 55QRSD: 106 T: 63QT: 398 QTc: 400 Interpretive StatementsSINUS RHYTHMPOSSIBLE RIGHT VENTRI CULAR CONDUCTION DELAY [RSR (QR) IN V1/V2]Electronically Signed On 01-22-2022 8:30:45 CDT by [facility] Lead [id number] 15:46:1012 LEAD EKG FOR [facility] Test Date: 2967-31-81Jlk Name: DORA JOSEPH Department: 5ECIPatient ID: [id number] Room: Gender: M Clinical Trial Manager: [id number]: 1970 Requested By: SUSHIL Cho Number: [id number] Reading MD: Rene Patterson MeasurementsIntervals [place] Rate: 61 P: 72PR: 152 QRS: 55QRSD: 106 T: 63QT: 398 QTc: 400 Interpretive StatementsSINUS RHYTHMPOSSIBLE RIGHT VENTRICULAR CONDUCTION DELAY [RSR (QR) IN V1/V2]Electronically Signed On 01-22-2022 8:30:45 CDT by [facility] Lead [id number] 15:46:1012 LEAD EKG FOR [facility] Test Date: 3760-35-04Bnl Name: DORA JOSEPH Department: 5ECIPatient ID: [id number] Room: Gender: M Clinical Trial Manager: [id number]: 1970 Requested By: SUSHIL Cho Number: [id number] Lawson MD: Rene Patterson MeasurementsIntervals [place] Rate: 61 P: 72PR: 152 QRS: 55QRSD: 106 T: 63QT: 398 QTc: 400 Interpretive StatementsSINUS RHYTHMPOSSIBLE RIGHT VENTRICULAR CONDUCTION DELAY [RSR (QR) IN V1/V2]Electronically Signed On 01-22-2022 8:30:45 CDT by Rene AvitiaGACompaSkagit [facility] Hospital12 Lead [id number] 15:46:1012 LEAD EKG FOR [facility] Test Date: 4339-04-60Gqa Name: DORA JOSEPH Department: 5ECIPatient ID: [id number] Room: Gender: M Clinical Trial Manager: [id number]: 1970 Requested By: SUSHIL Cho Number: [id number] Reading MD: Rene Patterson MeasurementsIntervals [place] Rate: 61 P: 72PR: 152 QRS: 55QRSD: 106 T: 63QT: 398 QTc: 400 Interpretive StatementsSINUS RHYTHMPOSSIBLE RIGHT VENTRICULAR CONDUCTION DELAY [RSR (QR) IN V1/V2]Electronically Signed On 01-22-2022 8:30:45 CDT by [place] [address] Lead [id number] 15:46:1012 LEAD EKG FOR [facility] Test Date: 3029-76-71Sup Name: DORA JOSEPH Department: 5ECIPatient ID: [id number] Room: Gender: M Clinical Trial Manager: [id number]: 1970 Requested By: SUSHIL Cho Number: [id number] Reading MD: Rene Patterson MeasurementsIntervals [place] Rate: 61 P: 72PR: 152 QRS: 55QRSD: 106 T: 63QT: 398 QTc: 400 Interpretive StatementsSINUS RHYTHMPOSSIBLE RIGHT VENTRI CULAR CONDUCTION DELAY [RSR (QR) IN V1/V2]Electronically Signed On 01-22-2022 8:30:45 CDT by [facility] HospitalV [facility]+2 Ab+HIV1 p24 Ag SerPl Ql [place] 2022-01-18 07:02:58 Test Item Value Reference Range Interpretation Comments HIV 1+2 Ab+HIV1 p24 Ag SerPl Ql IA NEGATIVE Negative (test code = 99652-3) [id number] 21:23:2512 LEAD EKG FOR [facility] Test Date: 0587-55-84Cnz Name: DORA JOSEPH Department: 5520Patient ID: [id number] Room: 8E11[place]: M Clinical Trial Manager: : 1970 Requested By: KARIN Ryan Number: [id number] Reading MD: Chiara Calles MeasurementsIntervals [place] Rate: 72 P: 90PR: 157 QRS: 87QRSD: 105 T: 90QT: 360 QTc: 384 Interpretive StatementsSINUS RHYTHMPOSSIBLE RIGHT VENTRICULAR CONDUCTION DELAY [RSR (QR) IN V1/V2]EARLY REPOLARIZATION [ST ELEVATION WITH NORMALLY INFLECTED T- WAVE]Electronically Signed On 01-17-2022 13:02:30 CDT by [place] [address]2022-05-26 21:23:2512 LEAD EKG FOR [facility] Test Date: 7551-35-80Pgb Name: DORA JOSEPH Department: 5520Patient ID: [id number] Room: 9W70Kgtqyx: M Clinical Trial Manager: : 1970 Requested By: JESSICA AOrder Number: [id number] Reading MD: Chiara Calles MeasurementsIntervals [place] Rate: 72 P: 90PR:157 QRS: 87QRSD: 105 T: 90QT: 360 QTc: 384 Interpretive StatementsSINUS RHYTHMPOSSIBLE RIGHT VENTRICULAR CONDUCTION DELAY [RSR (QR) IN V1/V2]EARLY REPOLARIZATION [ST ELEVATION WITH NORMALLY INFLECTED T- WAVE]Electronically Signed On 01-17-2022 13:02:30 CDT by [facility] PureWRXvalley hospitalRed Balloon SecurityCoulee Medical CenterJyekxjTFE4793-36-51 21:23:2512 LEAD EKG FOR [facility] Test Date: 9953-51-74Zzw Name: DORA JOSEPH Department: 5520Patient ID: [id number] Room: 9N04Hnpqvw: M Clinical Trial Manager: : 1970 Requested By: KARIN BASSETT AOrder Number: [id number] Reading MD: Chiara Calles MeasurementsIntervals [place] Rate: 72 P: 90PR: 157 QRS: 87QRSD: 105 T: 90QT: 360 QTc: 384 Interpretive StatementsSINUS RHYTHMPOSSIBLE RIGHT VENTRICULAR CONDUCTION DELAY [RSR (QR) IN V1/V2]EARLY REPOLARIZATION [ST ELEVATION WITH NORMALLY INFLECTEDT- WAVE]Electronically Signed On 01-17-2022 13:02:30 CDT by [facility] CenterRed Balloon SecurityChristopher [place] [address]NhbjzvICA3877-57-56 21:23:2512 LEAD EKG FOR [facility] Test Date: 9204-43-20Sxp Name: DORA JOSEPH Department: 5520Patient ID: [id number] Room: 4Z00Jpaydm: M Clinical Trial Manager: : 1970 Requested By: KARIN BASSETT AOrder Number: [id number] Reading MD: Chiara Calles MeasurementsIntervals [place] Rate: 72 P: 90PR:157 QRS: 87QRSD: 105 T: 90QT: 360 QTc: 384 Interpretive StatementsSINUS RHYTHMPOSSIBLE RIGHT VENTRICULAR CONDUCTION DELAY [RSR (QR) IN V1/V2]EARLY REPOLARIZATION [ST ELEVATION WITH NORMALLY INFLECTED T- WAVE]Electronically Signed On 01-17-2022 13:02:30 CDT by Chiara PureWRXbakariRed Balloon SecurityChristopher [place] [address]ZfyolySMY1571-53-16 21:23:2512 LEAD EKG FOR [facility] Test Date: 9358-07-95Ufr Name: DORA ELWIN Department: 5520Patient ID: [id number] Room: 6F87Kejcrx: M Clinical Trial Manager: : 1970 Requested By: KARIN BASSETT AOrder Number: [id number] Reading MD: Chiara Calles MeasurementsIntervals [place] Rate: 72 P: 90PR:157 QRS: 87QRSD: 105 T: 90QT: 360 QTc: 384 Interpretive StatementsSINUS RHYTHMPOSSIBLE RIGHT VENTRICULAR CONDUCTION DELAY [RSR (QR) IN V1/V2]EARLY REPOLARIZATION [ST ELEVATION WITH NORMALLY INFLECTED T- WAVE]Electronically Signed On 01-17-2022 13:02:30 CDT by Chiara FlipzuKennett DdnkmqONN6732-31-28 21:23:2512 LEAD EKG FOR [facility] Test Date: 2903-80-32Gsu Name: DORA ELWIN Department: 5520Patient ID: [id number] Room: 6M16Wglbxj: M Clinical Trial Manager: : 1970 Requested By: KARIN BASSETT AOrder Number: [id number] Reading MD: Chiara Calles MeasurementsIntervals [place] Rate: 72 P: 90PR:157 QRS: 87QRSD: 105 T: 90QT: 360 QTc: 384 Interpretive StatementsSINUS RHYTHMPOSSIBLE RIGHT VENTRICULAR CONDUCTION DELAY [RSR (QR) IN V1/V2]EARLY REPOLARIZATION [ST ELEVATION WITH NORMALLY INFLECTED T- WAVE]Electronically Signed On 01-17-2022 13:02:30 CDT by Chiara FlipzuCoulee Medical CenterYwwxbrHXV6719-15-96 21:23:2512 LEAD EKG FOR [facility] Test Date: 5092-08-57Tmn Name: DORA JOSEPH Department: 5520Patient ID: [id number] Room: 9Z31Fmfyuy: M Clinical Trial Manager: : 1970 Requested By: KARIN BASSETT AOrder Number: [id number] Reading MD: Chiara Calles MeasurementsIntervals [place] Rate: 72 P: 90PR:157 QRS: 87QRSD: 105 T: 90QT: 360 QTc: 384 Interpretive StatementsSINUS RHYTHMPOSSIBLE RIGHT VENTRICULAR CONDUCTION DELAY [RSR (QR) IN V1/V2]EARLY REPOLARIZATION [ST ELEVATION WITH NORMALLY INFLECTED T- WAVE]Electronically Signed On 01-17-2022 13:02:30 CDT by MovetisG2022-05-26 21:23:2512 LEAD EKG FOR [facility] Test Date: 3900-64-16Bgk Name: DORA PAEZRY Department: 5520Patient ID: [id number] Room: 5S28Aqppyd: M Clinical Trial Manager: : 1970 Requested By: KARIN BASSETT AOrder Number: [id number] Reading MD: Chiara Calles MeasurementsIntervals [place] Rate: 72 P: 90PR: 157 QRS: 87QRSD: 105 T: 90QT: 360 QTc: 384 Interpretive StatementsSINUS RHYTHMPOSSIBLE RIGHT VENTRICULAR CONDUCTION DELAY [RSR (QR) IN V1/V2]EARLY REPOLARIZATION [ST ELEVATION WITH NORMALLY INFLECTED T- WAVE]Electronically Signed On 01-17-2022 13:02:30 CDT by Igneous Systemsrobert FlipzuMer[facility] ArkansasMendel BiotechnologyWokuvfABR3349-60-27 21:23:2512 LEAD EKG FOR [facility] Test Date: 1122-08-83Qtm Name: DROA JOSEPH Department: 5520Patient ID: [id number] Room: 6T29Naqmod: M Clinical Trial Manager: : 1970 Requested By: KARIN BASSETT AOrder Number: [id number] Reading MD: Chiara Calles MeasurementsIntervals [place] Rate: 72 P: 90PR: 157 QRS: 87QRSD: 105 T: 90QT: 360 QTc: 384 Interpretive StatementsSINUS RHYTHMPOSSIBLE RIGHT VENTRICULAR CONDUCTION DELAY [RSR (QR) IN V1/V2]EARLY REPOLARIZATION [ST ELEVATION WITH NORMALLY INFLECTED T-W AVE]Electronically Signed On 01-17-2022 13:02:30 CDT by [place]ara [place]Christ[place] [id number] 21:23:2512 LEAD EKG FOR [facility] Test Date: 3517-35-33Gwj Name: DORA JOSEPH Department: 5520Patient ID: [id number] Room: 1F88Qrghxu: M Clinical Trial Manager: : 1970 Requested By: JESSICA AOrder Number: [id number] Reading MD: Chiara Calles MeasurementsIntervals [place] Rate: 72 P: 90PR:157 QRS: 87QRSD: 105 T: 90QT: 360 QTc: 384 Interpretive StatementsSINUS RHYTHMPOSSIBLE RIGHT VENTRICULAR CONDUCTION DELAY [RSR (QR) IN V1/V2]EARLY REPOLARIZATION [ST ELEVATION WITH NORMALLY INFLECTED T- WAVE]Electronically Signed On 01-17-2022 13:02:[address] [facility] [place] [id number] 21:23:2512 LEAD EKG FOR [facility] Test Date: 7502-74-47Wol Name: DORA JOSEPH Department: 5520Patient ID: [id number] Room: 4L89Wvyone: Clinical Trial Manager: : 1970 Requested By: KARIN BASSETT AOrder Number: [id number] Reading MD: Chiara Calles MeasurementsIntervals [place] Rate: 72 P: 90PR: 157 QRS: 87QRSD: 105 T: 90QT: 360 QTc: 384 Interpretive StatementsSINUS RHYTHMPOSSIBLE RIGHT VENTRICULAR CONDUCTION DELAY [RSR (QR) IN V1/V2]EARLY REPOLARIZATION [ST ELEVATION WITH NORMALLY INFLECTED T-W AVE]Electronically Signed On 01-17-2022 13:02:30 CDT by [facility] Fl[place]Christ[place] [id number] 21:23:2512 LEAD EKG FOR [facility] Test Date: 1369-65-61Jdm Name: DORA JOSEPH Department: 5520Patient ID: [id number] Room: 3L43Rlinat: M Clinical Trial Manager: : 1970 Requested By: KARIN BASSETT AOrder Number: [id number] Reading MD: Chiara Calles MeasurementsIntervals [place] Rate: 72 P: 90PR: 157 QRS: 87QRSD: 105 T: 90QT: 360 QTc: 384 Interpretive StatementsSINUS RHYTHMPOSSIBLE RIGHT VENTRICULAR CONDUCTION DELAY [RSR (QR) IN V1/V2]EARLY REPOLARIZATION [ST ELEVATION WITH NORMALLY INFLECTED T- WAVE]Electronically Signed On 01-17-2022 13:02:30 CDT by [facility] MatchmoveChristina [place] 51257022-05-26 21:23:2512 LEAD EKG FOR [facility] Test Date: 3413-87-90Eji Name: DORA JOSEPH Department: 5520Patient ID: [id number] Room: 4T32Ekcltz: M Clinical Trial Manager: : 1970 Requested By: KARIN BASSETT AOrder Number: [id number] Reading MD: Chiara Calles MeasurementsIntervals [place] Rate: 72 P: 90PR:157 QRS: 87QRSD: 105 T: 90QT: 360 QTc: 384 Interpretive StatementsSINUS RHYTHMPOSSIBLE RIGHT VENTRICULAR CONDUCTION DELAY [RSR (QR) IN V1/V2]EARLY REPOLARIZATION [ST ELEVATION WITH NORMALLY INFLECTED T- WAVE]Electronically Signed On 01-17-2022 13:02:[address] [facility] HospitalDubaiCityChristopher Ville [id number] 21:23:2512 LEAD EKG FOR [facility] Test Date: 1876-87-28Ieq Name: DORA JOSEPH Department: 5520Patient ID: [id number] Room: 8X66Shvnft: M Clinical Trial Manager: : 1970 Requested By: KARIN BASSETT AOrder Number: [id number] Reading MD: Chiara Calles MeasurementsIntervals [place] Rate: 72 P: 90PR:157 QRS: 87QRSD: 105 T: 90QT: 360 QTc: 384 Interpretive StatementsSINUS RHYTHMPOSSIBLE RIGHT VENTRICULAR CONDUCTION DELAY [RSR (QR) IN V1/V2]EARLY REPOLARIZATION [ST ELEVATION WITH NORMALLY INFLECTED T- WAVE]Electronically Signed On 01-17-2022 13:02:30 CDT by Service Management GroupEKG2022-05-26 21:23:2512 LEAD EKG FOR P [facility] Test Date: 4222-50-57Hlq Name: DORA JOSEPH Department: 5520Patient ID: [id number] Room: 3B73Uekubh: M Clinical Trial Manager: : 1970 Requested By: KARIN BASSETT AOrder Number: [id number] Reading MD: Chiara Calles MeasurementsIntervals [place] Rate: 72 P: 90PR:157 QRS: 87QRSD: 105 T: 90QT: 360 QTc: 384 Interpretive StatementsSINUS RHYTHMPOSSIBLE RIGHT VENTRICULAR CONDUCTION DELAY [RSR (QR) IN V1/V2]EARLY REPOLARIZATION [ST ELEVATION WITH NORMALLY INFLECTED T- WAVE]Electronically Signed On 01-17-2022 13:02:30 CDT by Service Management GroupSARS-CoV-2 ORF1ab Resp Ql OLENA+ekdam2298-21-93 19:57:49 Test Item Value Reference Range Interpretation Comments Hospitalized? (test No code = 48540-1) ICU? (test code = No 26226-1) Symptomatic as No defined by CDC? (test code = 77452-3) Employed in No Healthcare? (test code = 34539-8) Resident in a No congregate care setting (including nursing homes, residential care for people with intellectual and developmental disabilities, psychiatric treatment facilities, group homes, board and care homes, homeless long term, foster care or other): (test code = 90322-4) SARS-CoV-2 ORF1ab NOT DETECTED Not Detected INTERPRETA TION: No Resp Ql OLENA+probe detectable levels of (test code = SARS-CoV-2 07299-0) Coronavirus (COVID-19) were present in this patient's [...] SARS-CoV-2 mole cular diagnostic assa y utilizes Medical Imaging Director Mediated Amplification ( TMA) technology to r apidly detect the SARS -CoV-2 (COVID-19) viru s from respiratory adriana ples. In accordance with\\XC2A0\\the FDA's guidance docume nt "Policy for Diagnostic Test s for Coronavirus Disease-2019 du [facility] the Public [facility] th Emergency", amalia s test was developed, and its performance characteristics were verified by the [facility] molecular diagn ostics laboratory and is authorized for clinical diagno stic use. \\XC2A0\\Amalia s laboratory is certified under the Clinical Labora tory Improvement Amendments (CLI A) as qualified to pe rform high complexity clinical labora tory testing. [facility] CREATININE POC docked [id number] 13:57:55 Test Item Value Reference Range Interpretation Comments Creatinine POC (test 2.4 mg/dL 0.6-1.3 H Physici an Notified code = 99792081) eGFR If non- Am 30 See_Comment L [Aut omated message] (test code = 46189316) The s ystem which generated this result transmit dain reference range : >=90 mL/min/1.7 3 m2. The reference r meredith was not used to interpret this result as normal/abnormal . eGFR If Am (test 35 See_Comment L [A utomated message] code = 95157888) The system which generated this result transmit dain reference range : >=90 mL/min/1.7 3 m2. The reference r meredith was not used to interpret this result as normal/abnormal . Lab Interpretation (test Abnormal code = 61804-7) [facility] CREATININE POC docked [id number] 13:57:55 Test Item Value Reference Range Interpretation Comments Creatinine POC (test 2.4 mg/dL 0.6-1.3 H Physici an Notified code = 17738670) eGFR If non- Am 30 See_Comment L [Aut omated message] (test code = 15268553) The s ystem which generated this result transmit dain reference range : >=90 mL/min/1.7 3 m2. The reference r meredith was not used to interpret this result as normal/abnormal . eGFR If Am (test 35 See_Comment L [A utomated message] code = 90433406) The system which generated this result transmit dain reference range : >=90 mL/min/1.7 3 m2. The reference r meredith was not used to interpret this result as normal/abnormal . Lab Interpretation (test Abnormal code = 62430-9) [facility] CREATININE POC docked [id number] 13:57:55 Test Item Value Reference Range Interpretation Comments Creatinine POC (test 2.4 mg/dL 0.6-1.3 H Physici an Notified code = 49211186) eGFR If non- Am 30 See_Comment L [Aut omated message] (test code = 06000155) The s ystem which generated this result transmit dain reference range : >=90 mL/min/1.7 3 m2. The reference r meredith was not used to interpret this result as normal/abnormal . eGFR If Am (test 35 See_Comment L [A utomated message] code = 72314291) The system which generated this result transmit dain reference range : >=90 mL/min/1.7 3 m2. The reference r meredith was not used to interpret this result as normal/abnormal . Lab Interpretation (test Abnormal code = 70901-8) [facility] CREATININE POC docked [id number] 13:57:55 Test Item Value Reference Range Interpretation Comments Creatinine POC (test 2.4 mg/dL 0.6-1.3 H Physici an Notified code = 00905873) eGFR If non- Am 30 See_Comment L [Aut omated message] (test code = 12200236) The s ystem which generated this result transmit dain reference range : >=90 mL/min/1.7 3 m2. The reference r meredith was not used to interpret this result as normal/abnormal . eGFR If Am (test 35 See_Comment L [A utomated message] code = 12982635) The system which generated this result transmit dain reference range : >=90 mL/min/1.7 3 m2. The reference r meredith was not used to interpret this result as normal/abnormal . Lab Interpretation (test Abnormal code = 73908-7) [facility] CREATININE POC docked [id number] 13:57:55 Test Item Value Reference Range Interpretation Comments Creatinine POC (test 2.4 mg/dL 0.6-1.3 H Physici an Notified code = 59039221) eGFR If non- Am 30 See_Comment L [Aut omated message] (test code = 95694122) The s ystem which generated this result transmit dain reference range : >=90 mL/min/1.7 3 m2. The reference r meredith was not used to interpret this result as normal/abnormal . eGFR If Am (test 35 See_Comment L [A utomated message] code = 29277514) The system which generated this result transmit dain reference range : >=90 mL/min/1.7 3 m2. The reference r meredith was not used to interpret this result as normal/abnormal . Lab Interpretation (test Abnormal code = 59720-5) [facility] CREATININE POC docked [id number] 13:57:55 Test Item Value Reference Range Interpretation Comments Creatinine POC (test 2.4 mg/dL 0.6-1.3 H Physici an Notified code = 47478663) eGFR If non- Am 30 See_Comment L [Aut omated message] (test code = 04008908) The s ystem which generated this result transmit dain reference range : >=90 mL/min/1.7 3 m2. The reference r meredith was not used to interpret this result as normal/abnormal . eGFR If Am (test 35 See_Comment L [A utomated message] code = 99467529) The system which generated this result transmit dain reference range : >=90 mL/min/1.7 3 m2. The reference r meredith was not used to interpret this result as normal/abnormal . Lab Interpretation (test Abnormal code = 04963-3) [facility] [id number] 13:57:55 Test Item Value Reference Range Interpretation Comments Creatinine POC (test 2.4 mg/dL 0.6-1.3 H Physici an Notified code = 78793834) eGFR If non- Am 30 See_Comment L [Aut omated message] (test code = 13258560) The s ystem which generated this result transmit dain reference range : >=90 mL/min/1.7 3 m2. The reference r meredith was not used to interpret this result as normal/abnormal . eGFR If Am (test 35 See_Comment L [A utomated message] code = 85808751) The system which generated this result transmit dain reference range : >=90 mL/min/1.7 3 m2. The reference r meredith was not used to interpret this result as normal/abnormal . Lab Interpretation (test Abnormal code = 39003-8) [facility] CREATININE POC docked [id number] 13:57:55 Test Item Value Reference Range Interpretation Comments Creatinine POC (test 2.4 mg/dL 0.6-1.3 H Physici an Notified code = 57479588) eGFR If non- Am 30 See_Comment L [Aut omated message] (test code = 02933991) The s ystem which generated this result transmit dain reference range : >=90 mL/min/1.7 3 m2. The reference r meredith was not used to interpret this result as normal/abnormal . eGFR If Am (test 35 See_Comment L [A utomated message] code = 38961326) The system which generated this result transmit dain reference range : >=90 mL/min/1.7 3 m2. The reference r meredith was not used to interpret this result as normal/abnormal . Lab Interpretation (test Abnormal code = 98359-0) [facility] CREATININE POC docked [id number] 13:57:55 Test Item Value Reference Range Interpretation Comments Creatinine POC (test 2.4 mg/dL 0.6-1.3 H Physici an Notified code = 73573127) eGFR If non- Am 30 See_Comment L [Aut omated message] (test code = 34723593) The s ystem which generated this result transmit dain reference range : >=90 mL/min/1.7 3 m2. The reference r meredith was not used to interpret this result as normal/abnormal . eGFR If Am (test 35 See_Comment L [A utomated message] code = 06819875) The system which generated this result transmit dain reference range : >=90 mL/min/1.7 3 m2. The reference r meredith was not used to interpret this result as normal/abnormal . Lab Interpretation (test Abnormal code = 74040-8) [facility] [id number] 13:57:55 Test Item Value Reference Range Interpretation Comments Creatinine POC (test 2.4 mg/dL 0.6-1.3 H Physici an Notified code = 57739506) eGFR If non- Am 30 See_Comment L [Aut omated message] (test code = 75853135) The s ystem which generated this result transmit dain reference range : >=90 mL/min/1.7 3 m2. The reference r meredith was not used to interpret this result as normal/abnormal . eGFR If Am (test 35 See_Comment L [A utomated message] code = 27091599) The system which generated this result transmit dian reference range : >=90 mL/min/1.7 3 m2. The reference r meredith was not used to interpret this result as normal/abnormal . Lab Interpretation (test Abnormal code = 20813-1) [facility] CREATININE POC docked [id number] 13:57:55 Test Item Value Reference Range Interpretation Comments Creatinine POC (test 2.4 mg/dL 0.6-1.3 H Physici an Notified code = 28301491) eGFR If non- Am 30 See_Comment L [Aut omated message] (test code = 13432622) The s ystem which generated this result transmit dain reference range : >=90 mL/min/1.7 3 m2. The reference r meredith was not used to interpret this result as normal/abnormal . eGFR If Am (test 35 See_Comment L [A utomated message] code = 07282607) The system which generated this result transmit dain reference range : >=90 mL/min/1.7 3 m2. The reference r meredith was not used to interpret this result as normal/abnormal . Lab Interpretation (test Abnormal code = 52052-6) [facility] [id number] 13:57:55 Test Item Value Reference Range Interpretation Comments Creatinine POC (test 2.4 mg/dL 0.6-1.3 H Physici an Notified code = 93242353) eGFR If non- Am 30 See_Comment L [Aut omated message] (test code = 68189347) The s ystem which generated this result transmit dain reference range : >=90 mL/min/1.7 3 m2. The reference r meredith was not used to interpret this result as normal/abnormal . eGFR If Am (test 35 See_Comment L [A utomated message] code = 71365642) The system which generated this result transmit dain reference range : >=90 mL/min/1.7 3 m2. The reference r meredith was not used to interpret this result as normal/abnormal . Lab Interpretation (test Abnormal code = 67999-4) [facility] CREATININE POC docked [id number] 13:57:55 Test Item Value Reference Range Interpretation Comments Creatinine POC (test 2.4 mg/dL 0.6-1.3 H Physici an Notified code = 83968992) eGFR If non- Am 30 See_Comment L [Aut omated message] (test code = 58858053) The s ystem which generated this result transmit dain reference range : >=90 mL/min/1.7 3 m2. The reference r meredith was not used to interpret this result as normal/abnormal . eGFR If Am (test 35 See_Comment L [A utomated message] code = 99393090) The system which generated this result transmit dain reference range : >=90 mL/min/1.7 3 m2. The reference r meredith was not used to interpret this result as normal/abnormal . Lab Interpretation (test Abnormal code = 86751-7) [facility] CREATININE POC docked [id number] 13:57:55 Test Item Value Reference Range Interpretation Comments Creatinine POC (test 2.4 mg/dL 0.6-1.3 H Physici an Notified code = 46442842) eGFR If non- Am 30 See_Comment L [Aut omated message] (test code = 94010997) The s ystem which generated this result transmit dain reference range : >=90 mL/min/1.7 3 m2. The reference r meredith was not used to interpret this result as normal/abnormal . eGFR If Am (test 35 See_Comment L [A utomated message] code = 81498604) The system which generated this result transmit dain reference range : >=90 mL/min/1.7 3 m2. The reference r meredith was not used to interpret this result as normal/abnormal . Lab Interpretation (test Abnormal code = 73537-3) [facility] CREATININE POC docked [id number] 13:57:55 Test Item Value Reference Range Interpretation Comments Creatinine POC (test 2.4 mg/dL 0.6-1.3 H Physici an Notified code = 86853256) eGFR If non- Am 30 See_Comment L [Aut omated message] (test code = 73867443) The s ystem which generated this result transmit dain reference range : >=90 mL/min/1.7 3 m2. The reference r meredith was not used to interpret this result as normal/abnormal . eGFR If Am (test 35 See_Comment L [A utomated message] code = 98105365) The system which generated this result transmit dain reference range : >=90 mL/min/1.7 3 m2. The reference r meredith was not used to interpret this result as normal/abnormal . Lab Interpretation (test Abnormal code = 66565-1) [facility] BMP POC docked [id number] 13:48:46 Test Item Value Reference Range Interpretation Comments Sodium POC (test code = 126 mmol/L 136-145 L 68952660) Potassium POC (test code 4.4 mmol/L 3.5-5.1 = 79880266) Chloride POC (test code 100 mmol/L 98-107 = 52864536) TCO2 POC (test code = 17 mmol/L 21-32 L Physic rachel Notified 11020988) Urea Nitrogen POC (test 36 mg/dL 7-18 H code = 02137595) Glucose POC (test code = 114 mg/dL 74-106 H 46881099) Hemoglobin POC (test 11.9 g/dL 12-16 L code = 39658557) Hematocrit POC (test 35.0 % 37.0-47.0 L code = 29549882) Lab Interpretation (test Abnormal code = 44876-8) [facility] BMP POC docked [id number] 13:48:46 Test Item Value Reference Range Interpretation Comments Sodium POC (test code = 126 mmol/L 136-145 L 97704608) Potassium POC (test code 4.4 mmol/L 3.5-5.1 = 33521725) Chloride POC (test code 100 mmol/L 98-107 = 49270795) TCO2 POC (test code = 17 mmol/L 21-32 L Physic rachel Notified 30458560) Urea Nitrogen POC (test 36 mg/dL 7-18 H code = 64926960) Glucose POC (test code = 114 mg/dL 74-106 H 14726969) Hemoglobin POC (test 11.9 g/dL 12-16 L code = 10736733) Hematocrit POC (test 35.0 % 37.0-47.0 L code = 33230325) Lab Interpretation (test Abnormal code = 83266-7) [facility] POC docked [id number] 13:48:46 Test Item Value Reference Range Interpretation Comments Sodium POC (test code = 126 mmol/L 136-145 L 25463492) Potassium POC (test code 4.4 mmol/L 3.5-5.1 = 44829103) Chloride POC (test code 100 mmol/L 98-107 = 78023826) TCO2 POC (test code = 17 mmol/L 21-32 L Physic rachel Notified 42022169) Urea Nitrogen POC (test 36 mg/dL 7-18 H code = 62653749) Glucose POC (test code = 114 mg/dL 74-106 H 31916139) Hemoglobin POC (test 11.9 g/dL 12-16 L code = 45930638) Hematocrit POC (test 35.0 % 37.0-47.0 L code = 52978607) Lab Interpretation (test Abnormal code = 73187-3) [facility] POC docked [id number] 13:48:46 Test Item Value Reference Range Interpretation Comments Sodium POC (test code = 126 mmol/L 136-145 L 50069141) Potassium POC (test code 4.4 mmol/L 3.5-5.1 = 60284629) Chloride POC (test code 100 mmol/L 98-107 = 55841413) TCO2 POC (test code = 17 mmol/L 21-32 L Physic rachel Notified 29216410) Urea Nitrogen POC (test 36 mg/dL 7-18 H code = 79774080) Glucose POC (test code = 114 mg/dL 74-106 H 11868157) Hemoglobin POC (test 11.9 g/dL 12-16 L code = 73466201) Hematocrit POC (test 35.0 % 37.0-47.0 L code = 91140392) Lab Interpretation (test Abnormal code = 03548-6) [facility] POC docked [id number] 13:48:46 Test Item Value Reference Range Interpretation Comments Sodium POC (test code = 126 mmol/L 136-145 L 72843540) Potassium POC (test code 4.4 mmol/L 3.5-5.1 = 38060604) Chloride POC (test code 100 mmol/L 98-107 = 89932822) TCO2 POC (test code = 17 mmol/L 21-32 L Physic rachel Notified 21122969) Urea Nitrogen POC (test 36 mg/dL 7-18 H code = 18218513) Glucose POC (test code = 114 mg/dL 74-106 H 81616980) Hemoglobin POC (test 11.9 g/dL 12-16 L code = 11830458) Hematocrit POC (test 35.0 % 37.0-47.0 L code = 43339044) Lab Interpretation (test Abnormal code = 41445-2) [facility] POC docked [id number] 13:48:46 Test Item Value Reference Range Interpretation Comments Sodium POC (test code = 126 mmol/L 136-145 L 63764709) Potassium POC (test code 4.4 mmol/L 3.5-5.1 = 40838567) Chloride POC (test code 100 mmol/L 98-107 = 23093174) TCO2 POC (test code = 17 mmol/L 21-32 L Physic rachel Notified 60612008) Urea Nitrogen POC (test 36 mg/dL 7-18 H code = 68302587) Glucose POC (test code = 114 mg/dL 74-106 H 53309159) Hemoglobin POC (test 11.9 g/dL 12-16 L code = 99865791) Hematocrit POC (test 35.0 % 37.0-47.0 L code = 56083750) Lab Interpretation (test Abnormal code = 41926-3) [facility] POC docked [id number] 13:48:46 Test Item Value Reference Range Interpretation Comments Sodium POC (test code = 126 mmol/L 136-145 L 20824172) Potassium POC (test code 4.4 mmol/L 3.5-5.1 = 94897086) Chloride POC (test code 100 mmol/L 98-107 = 07829324) TCO2 POC (test code = 17 mmol/L 21-32 L Physic rachel Notified 61491034) Urea Nitrogen POC (test 36 mg/dL 7-18 H code = 77066315) Glucose POC (test code = 114 mg/dL 74-106 H 09550835) Hemoglobin POC (test 11.9 g/dL 12-16 L code = 80542164) Hematocrit POC (test 35.0 % 37.0-47.0 L code = 76267528) Lab Interpretation (test Abnormal code = 27306-5) [facility] POC docked [id number] 13:48:46 Test Item Value Reference Range Interpretation Comments Sodium POC (test code = 126 mmol/L 136-145 L 15603784) Potassium POC (test code 4.4 mmol/L 3.5-5.1 = 52695972) Chloride POC (test code 100 mmol/L 98-107 = 45640182) TCO2 POC (test code = 17 mmol/L 21-32 L Physic rachel Notified 44839237) Urea Nitrogen POC (test 36 mg/dL 7-18 H code = 36144994) Glucose POC (test code = 114 mg/dL 74-106 H 44505177) Hemoglobin POC (test 11.9 g/dL 12-16 L code = 69348744) Hematocrit POC (test 35.0 % 37.0-47.0 L code = 19816754) Lab Interpretation (test Abnormal code = 79497-5) [facility] POC docked [id number] 13:48:46 Test Item Value Reference Range Interpretation Comments Sodium POC (test code = 126 mmol/L 136-145 L 58868521) Potassium POC (test code 4.4 mmol/L 3.5-5.1 = 25351640) Chloride POC (test code 100 mmol/L 98-107 = 62332953) TCO2 POC (test code = 17 mmol/L 21-32 L Physic rachel Notified 26112109) Urea Nitrogen POC (test 36 mg/dL 7-18 H code = 64792974) Glucose POC (test code = 114 mg/dL 74-106 H 37924217) Hemoglobin POC (test 11.9 g/dL 12-16 L code = 37359203) Hematocrit POC (test 35.0 % 37.0-47.0 L code = 96042230) Lab Interpretation (test Abnormal code = 30556-5) [facility] POC docked [id number] 13:48:46 Test Item Value Reference Range Interpretation Comments Sodium POC (test code = 126 mmol/L 136-145 L 57746342) Potassium POC (test code 4.4 mmol/L 3.5-5.1 = 43203686) Chloride POC (test code 100 mmol/L 98-107 = 02481150) TCO2 POC (test code = 17 mmol/L 21-32 L Physic rachel Notified 46615847) Urea Nitrogen POC (test 36 mg/dL 7-18 H code = 93369926) Glucose POC (test code = 114 mg/dL 74-106 H 98140027) Hemoglobin POC (test 11.9 g/dL 12-16 L code = 89239861) Hematocrit POC (test 35.0 % 37.0-47.0 L code = 38962241) Lab Interpretation (test Abnormal code = 07555-0) [facility] POC docked [id number] 13:48:46 Test Item Value Reference Range Interpretation Comments Sodium POC (test code = 126 mmol/L 136-145 L 75721128) Potassium POC (test code 4.4 mmol/L 3.5-5.1 = 82566917) Chloride POC (test code 100 mmol/L 98-107 = 50699887) TCO2 POC (test code = 17 mmol/L 21-32 L Physic rachel Notified 88042506) Urea Nitrogen POC (test 36 mg/dL 7-18 H code = 67588605) Glucose POC (test code = 114 mg/dL 74-106 H 92292997) Hemoglobin POC (test 11.9 g/dL 12-16 L code = 71617988) Hematocrit POC (test 35.0 % 37.0-47.0 L code = 31830396) Lab Interpretation (test Abnormal code = 14961-3) [facility] POC docked [id number] 13:48:46 Test Item Value Reference Range Interpretation Comments Sodium POC (test code = 126 mmol/L 136-145 L 22577785) Potassium POC (test code 4.4 mmol/L 3.5-5.1 = 40627902) Chloride POC (test code 100 mmol/L 98-107 = 64944550) TCO2 POC (test code = 17 mmol/L 21-32 L Physic rachel Notified 62803866) Urea Nitrogen POC (test 36 mg/dL 7-18 H code = 33113402) Glucose POC (test code = 114 mg/dL 74-106 H 71499668) Hemoglobin POC (test 11.9 g/dL 12-16 L code = 25241139) Hematocrit POC (test 35.0 % 37.0-47.0 L code = 12025381) Lab Interpretation (test Abnormal code = 96357-8) [facility] POC docked [id number] 13:48:46 Test Item Value Reference Range Interpretation Comments Sodium POC (test code = 126 mmol/L 136-145 L 60802950) Potassium POC (test code 4.4 mmol/L 3.5-5.1 = 41356408) Chloride POC (test code 100 mmol/L 98-107 = 76533508) TCO2 POC (test code = 17 mmol/L 21-32 L Physic rachel Notified 67461064) Urea Nitrogen POC (test 36 mg/dL 7-18 H code = 82346346) Glucose POC (test code = 114 mg/dL 74-106 H 99273316) Hemoglobin POC (test 11.9 g/dL 12-16 L code = 77205078) Hematocrit POC (test 35.0 % 37.0-47.0 L code = 92114464) Lab Interpretation (test Abnormal code = 75977-7) [facility] POC docked [id number] 13:48:46 Test Item Value Reference Range Interpretation Comments Sodium POC (test code = 126 mmol/L 136-145 L 77347792) Potassium POC (test code 4.4 mmol/L 3.5-5.1 = 91039036) Chloride POC (test code 100 mmol/L 98-107 = 31089747) TCO2 POC (test code = 17 mmol/L 21-32 L Physic rachel Notified 16869386) Urea Nitrogen POC (test 36 mg/dL 7-18 H code = 41782981) Glucose POC (test code = 114 mg/dL 74-106 H 32806662) Hemoglobin POC (test 11.9 g/dL 12-16 L code = 42346833) Hematocrit POC (test 35.0 % 37.0-47.0 L code = 22997625) Lab Interpretation (test Abnormal code = 24106-6) [facility] BMP POC docked [id number] 13:48:46 Test Item Value Reference Range Interpretation Comments Sodium POC (test code = 126 mmol/L 136-145 L 92871675) Potassium POC (test code 4.4 mmol/L 3.5-5.1 = 98504685) Chloride POC (test code 100 mmol/L 98-107 = 99320825) TCO2 POC (test code = 17 mmol/L 21-32 L Physic rachel Notified 59014309) Urea Nitrogen POC (test 36 mg/dL 7-18 H code = 99950805) Glucose POC (test code = 114 mg/dL 74-106 H 88700173) Hemoglobin POC (test 11.9 g/dL 12-16 L code = 95976649) Hematocrit POC (test 35.0 % 37.0-47.0 L code = 93189986) Lab Interpretation (test Abnormal code = 05943-7) [facility]1ab Resp Ql OLENA+[id number] 20:25:16 Test Item Value Reference Range Interpretation Comments Hospitalized? (test No code = 65265-1) ICU? (test code = No 62927-9) Symptomatic as No defined by CDC? (test code = 62543-3) Employed in No Healthcare? (test code = 88869-0) Resident in a No congregate care setting (including nursing homes, residential care for people with intellectual and developmental disabilities, psychiatric treatment facilities, group homes, board and care homes, homeless long term, foster care or other): (test code = 71268-3) SARS-CoV-2 ORF1ab NOT DETECTED Not Detected INTERPRETA TION: No Resp Ql OLENA+probe detectable levels of (test code = SARS-CoV-2 96562-5) Coronavirus (COVID-19) were present in this patient's [...] SARS-CoV-2 mole cular diagnostic assa y utilizes Medical Imaging Director Mediated Amplification ( TMA) technology to r apidly detect the SARS -CoV-2 (COVID-19) viru s from respiratory adriana ples. In accordance with\\XC2A0\\the FDA's guidance docume nt "Policy for Diagnostic Test s for Coronavirus Disease-2019 du [facility] the [facility]", amalia s test was developed, and its performance characteristics were verified by the [facility] molecular diagn ostics laboratory and is authorized for clinical diagno stic use. \\XC2A0\\Thi s laboratory is certified under the Clinical Labora tory Improvement Amendments (CLI A) as qualified to pe rform high complexity clinical labora tory testing. [facility] POC docked [id number] 11:16:15 Test Item Value Reference Range Interpretation Comments pH, Pankaj POC (test code 7.32 7.33-7.43 L = 39942657) pCO2,Pankaj POC (test code 31.0 See_Comment L [Au tomated = 27735253) message] The sy stem which generated this result transmitted reference range : 38 - 50 mmHg. The reference range was not used to interpret this result as normal/abnormal . PO2, Venous POC (BKR) 44 See_Comment L [Auto mated (test code = 94187248) messa ge] The system which generated this result transmitted reference range : 50 - 75 mm Hg. The reference range was not used to interpret this result as normal/abnormal . Ionized Calcium POC 1.24 mmol/L 1.15-1.29 (test code = 89700596) HCO3, Pankaj POC (test 16 mmol/L 22-26 L code = 55853642) TCO2 POC (test code = 17 mmol/L 21-32 L 80797006) Base Deficit, Pankaj POC -9 (test code = 09095669) Sample Type (test code IVEN Physi erik Notified = 96192459) % Sat, Pankaj POC (test 77 % code = 79484886) Lab Interpretation Abnormal (test code = 26460-0) [facility] POC docked [id number] 11:16:15 Test Item Value Reference Range Interpretation Comments pH, Pankaj POC (test code 7.32 7.33-7.43 L = 74292827) pCO2,Pankaj POC (test code 31.0 See_Comment L [Au tomated = 85438880) message] The sy stem which generated this result transmitted reference range : 38 - 50 mmHg. The reference range was not used to interpret this result as normal/abnormal . PO2, Venous POC (BKR) 44 See_Comment L [Auto mated (test code = 40153910) [employer] ge] The system which generated this result transmitted reference range : 50 - 75 mm Hg. The reference range was not used to interpret this result as normal/abnormal . Ionized Calcium POC 1.24 mmol/L 1.15-1.29 (test code = 86465050) HCO3, Pankaj POC (test 16 mmol/L 22-26 L code = 62819323) TCO2 POC (test code = 17 mmol/L 21-32 L 75016651) Base Deficit, Pankaj POC -9 (test code = 08191944) Sample Type (test code IVEN Physi erik Notified = 99241896) % Sat, Pankaj POC (test 77 % code = 41375025) Lab Interpretation Abnormal (test code = 64797-9) [facility] POC docked [id number] 11:16:15 Test Item Value Reference Range Interpretation Comments pH, Pankaj POC (test code 7.32 7.33-7.43 L = 53649565) pCO2,Pankaj POC (test code 31.0 See_Comment L [Au tomated = 65888200) message] The sy stem which generated this result transmitted reference range : 38 - 50 mmHg. The reference range was not used to interpret this result as normal/abnormal . PO2, Venous POC (BKR) 44 See_Comment L [Auto mated (test code = 15270481) [employer] ge] The system which generated this result transmitted reference range : 50 - 75 mm Hg. The reference range was not used to interpret this result as normal/abnormal . Ionized Calcium POC 1.24 mmol/L 1.15-1.29 (test code = 70454067) HCO3, Pankaj POC (test 16 mmol/L 22-26 L code = 92585384) TCO2 POC (test code = 17 mmol/L 21-32 L 71108154) Base Deficit, Pankaj POC -9 (test code = 47342306) Sample Type (test code IVEN Physi erik Notified = 10849414) % Sat, Pankaj POC (test 77 % code = 54159388) Lab Interpretation Abnormal (test code = 07824-4) [facility] POC docked [id number] 11:16:15 Test Item Value Reference Range Interpretation Comments pH, Pankaj POC (test code 7.32 7.33-7.43 L = 28833506) pCO2,Pankaj POC (test code 31.0 See_Comment L [Au tomated = 52848075) message] The sy stem which generated this result transmitted reference range : 38 - 50 mmHg. The reference range was not used to interpret this result as normal/abnormal . PO2, Venous POC (BKR) 44 See_Comment L [Auto mated (test code = 94702446) [employer]] The system which generated this result transmitted reference range : 50 - 75 mm Hg. The reference range was not used to interpret this result as normal/abnormal . Ionized Calcium POC 1.24 mmol/L 1.15-1.29 (test code = 87462268) HCO3, Pankaj POC (test 16 mmol/L 22-26 L code = 36705601) TCO2 POC (test code = 17 mmol/L 21-32 L 15417059) Base Deficit, Pankaj POC -9 (test code = 30755076) Sample Type (test code IVEN Physi erik Notified = 21624602) % Sat, Pankaj POC (test 77 % code = 04841664) Lab Interpretation Abnormal (test code = 73608-9) [facility] POC docked [id number] 11:16:15 Test Item Value Reference Range Interpretation Comments pH, Pankaj POC (test code 7.32 7.33-7.43 L = 82002272) pCO2,Pankaj POC (test code 31.0 See_Comment L [Au tomated = 33421668) message] The sy stem which generated this result transmitted reference range : 38 - 50 mmHg. The reference range was not used to interpret this result as normal/abnormal . PO2, Venous POC (BKR) 44 See_Comment L [Auto mated (test code = 58390004) [employer]] The system which generated this result transmitted reference range : 50 - 75 mm Hg. The reference range was not used to interpret this result as normal/abnormal . Ionized Calcium POC 1.24 mmol/L 1.15-1.29 (test code = 14280598) HCO3, Pankaj POC (test 16 mmol/L 22-26 L code = 27170741) TCO2 POC (test code = 17 mmol/L 21-32 L 19935238) Base Deficit, Panakj POC -9 (test code = 01252784) Sample Type (test code IVFLORENCE Physi erik Notified = 67827837) % Sat, Pankaj POC (test 77 % code = 76122893) Lab Interpretation Abnormal (test code = 51253-8) [facility] POC docked [id number] 11:16:15 Test Item Value Reference Range Interpretation Comments pH, Pankaj POC (test code 7.32 7.33-7.43 L = 18153087) pCO2,Pankaj POC (test code 31.0 See_Comment L [Au tomated = 01430024) message] The sy stem which generated this result transmitted reference range : 38 - 50 mmHg. The reference range was not used to interpret this result as normal/abnormal . PO2, Venous POC (BKR) 44 See_Comment L [Auto mated (test code = 76317341) [employer]] The system which generated this result transmitted reference range : 50 - 75 mm Hg. The reference range was not used to interpret this result as normal/abnormal . Ionized Calcium POC 1.24 mmol/L 1.15-1.29 (test code = 92333347) HCO3, Pankaj POC (test 16 mmol/L 22-26 L code = 33356222) TCO2 POC (test code = 17 mmol/L 21-32 L 32209357) Base Deficit, Pankaj POC -9 (test code = 68315561) Sample Type (test code STEPAN valencia Notified = 33902704) % Sat, Pankaj POC (test 77 % code = 00175938) Lab Interpretation Abnormal (test code = 23709-8) [facility] POC docked [id number] 11:16:15 Test Item Value Reference Range Interpretation Comments pH, Pankaj POC (test code 7.32 7.33-7.43 L = 75763708) pCO2,Pankaj POC (test code 31.0 See_Comment L [Au tomated = 69721789) message] The sy stem which generated this result transmitted reference range : 38 - 50 mmHg. The reference range was not used to interpret this result as normal/abnormal . PO2, Venous POC (BKR) 44 See_Comment L [Auto mated (test code = 78376715) messa ge] The system which generated this result transmitted reference range : 50 - 75 mm Hg. The reference range was not used to interpret this result as normal/abnormal . Ionized Calcium POC 1.24 mmol/L 1.15-1.29 (test code = 19183290) HCO3, Pankaj POC (test 16 mmol/L 22-26 L code = 86390611) TCO2 POC (test code = 17 mmol/L 21-32 L 07236249) Base Deficit, Pankaj POC -9 (test code = 07616967) Sample Type (test code STEPAN valencia Notified = 09327493) % Sat, Pankaj POC (test 77 % code = 14301505) Lab Interpretation Abnormal (test code = 56510-8) [facility] POC docked [id number] 11:16:15 Test Item Value Reference Range Interpretation Comments pH, Pankaj POC (test code 7.32 7.33-7.43 L = 91893333) pCO2,Pankaj POC (test code 31.0 See_Comment L [Au tomated = 83314731) message] The sy stem which generated this result transmitted reference range : 38 - 50 mmHg. The reference range was not used to interpret this result as normal/abnormal . PO2, Venous POC (BKR) 44 See_Comment L [Auto mated (test code = 53021681) messa ge] The system which generated this result transmitted reference range : 50 - 75 mm Hg. The reference range was not used to interpret this result as normal/abnormal . Ionized Calcium POC 1.24 mmol/L 1.15-1.29 (test code = 32104996) HCO3, Pankaj POC (test 16 mmol/L 22-26 L code = 27515543) TCO2 POC (test code = 17 mmol/L 21-32 L 45477416) Base Deficit, Pankaj POC -9 (test code = 45757864) Sample Type (test code IVEN Physi erik Notified = 45925177) % Sat, Pankaj POC (test 77 % code = 71681975) Lab Interpretation Abnormal (test code = 91909-3) [facility] POC docked [id number] 11:16:15 Test Item Value Reference Range Interpretation Comments pH, Pankaj POC (test code 7.32 7.33-7.43 L = 68969971) pCO2,Pankaj POC (test code 31.0 See_Comment L [Au tomated = 00320664) message] The sy stem which generated this result transmitted reference range : 38 - 50 mmHg. The reference range was not used to interpret this result as normal/abnormal . PO2, Venous POC (BKR) 44 See_Comment L [Auto mated (test code = 84821864) messa ge] The system which generated this result transmitted reference range : 50 - 75 mm Hg. The reference range was not used to interpret this result as normal/abnormal . Ionized Calcium POC 1.24 mmol/L 1.15-1.29 (test code = 58263798) HCO3, Pankaj POC (test 16 mmol/L 22-26 L code = 04126621) TCO2 POC (test code = 17 mmol/L 21-32 L 19974575) Base Deficit, Pankaj POC -9 (test code = 70132545) Sample Type (test code IVEN Physi erik Notified = 58293369) % Sat, Pankaj POC (test 77 % code = 07295645) Lab Interpretation Abnormal (test code = 05783-5) [facility] [id number] 11:16:15 Test Item Value Reference Range Interpretation Comments pH, Pankaj POC (test code 7.32 7.33-7.43 L = 41706821) pCO2,Pankaj POC (test code 31.0 See_Comment L [Au tomated = 80198565) message] The sy stem which generated this result transmitted reference range : 38 - 50 mmHg. The reference range was not used to interpret this result as normal/abnormal . PO2, Venous POC (BKR) 44 See_Comment L [Auto mated (test code = 01981777) [employer]] The system which generated this result transmitted reference range : 50 - 75 mm Hg. The reference range was not used to interpret this result as normal/abnormal . Ionized Calcium POC 1.24 mmol/L 1.15-1.29 (test code = 99856055) HCO3, Pankaj POC (test 16 mmol/L 22-26 L code = 11420027) TCO2 POC (test code = 17 mmol/L 21-32 L 48481101) Base Deficit, Pankaj POC -9 (test code = 19576682) Sample Type (test code IVEN Physi erik Notified = 25056031) % Sat, Pankaj POC (test 77 % code = 78076837) Lab Interpretation Abnormal (test code = 22450-5) [facility] POC docked [id number] 11:16:15 Test Item Value Reference Range Interpretation Comments pH, Pankaj POC (test code 7.32 7.33-7.43 L = 87358040) pCO2,Pankaj POC (test code 31.0 See_Comment L [Au tomated = 01657466) message] The sy stem which generated this result transmitted reference range : 38 - 50 mmHg. The reference range was not used to interpret this result as normal/abnormal . PO2, Venous POC (BKR) 44 See_Comment L [Auto mated (test code = 60142812) [employer] ge] The system which generated this result transmitted reference range : 50 - 75 mm Hg. The reference range was not used to interpret this result as normal/abnormal . Ionized Calcium POC 1.24 mmol/L 1.15-1.29 (test code = 14684934) HCO3, Pankaj POC (test 16 mmol/L 22-26 L code = 43784739) TCO2 POC (test code = 17 mmol/L 21-32 L 19189673) Base Deficit, Pankaj POC -9 (test code = 69458566) Sample Type (test code IVEN Physi erik Notified = 39187217) % Sat, Pankaj POC (test 77 % code = 24660131) Lab Interpretation Abnormal (test code = 12971-6) [facility] POC docked [id number] 11:16:15 Test Item Value Reference Range Interpretation Comments pH, Pankaj POC (test code 7.32 7.33-7.43 L = 92017545) pCO2,Pankaj POC (test code 31.0 See_Comment L [Au tomated = 26521641) message] The sy stem which generated this result transmitted reference range : 38 - 50 mmHg. The reference range was not used to interpret this result as normal/abnormal . PO2, Venous POC (BKR) 44 See_Comment L [Auto mated (test code = 50328798) messa ge] The system which generated this result transmitted reference range : 50 - 75 mm Hg. The reference range was not used to interpret this result as normal/abnormal . Ionized Calcium POC 1.24 mmol/L 1.15-1.29 (test code = 78422670) HCO3, Pankaj POC (test 16 mmol/L 22-26 L code = 92593918) TCO2 POC (test code = 17 mmol/L 21-32 L 26929300) Base Deficit, Pankaj POC -9 (test code = 31041582) Sample Type (test code STEAPN Physi erik Notified = 65286854) % Sat, Pankaj POC (test 77 % code = 17526110) Lab Interpretation Abnormal (test code = 03980-8) [facility] VB POC docked [id number] 11:16:15 Test Item Value Reference Range Interpretation Comments pH, Pankaj POC (test code 7.32 7.33-7.43 L = 24920025) pCO2,Pankaj POC (test code 31.0 See_Comment L [Au tomated = 65945124) message] The sy stem which generated this result transmitted reference range : 38 - 50 mmHg. The reference range was not used to interpret this result as normal/abnormal . PO2, Venous POC (BKR) 44 See_Comment L [Auto mated (test code = 23479284) messa ge] The system which generated this result transmitted reference range : 50 - 75 mm Hg. The reference range was not used to interpret this result as normal/abnormal . Ionized Calcium POC 1.24 mmol/L 1.15-1.29 (test code = 11860896) HCO3, Pankaj POC (test 16 mmol/L 22-26 L code = 91845485) TCO2 POC (test code = 17 mmol/L 21-32 L 99639779) Base Deficit, Pankaj POC -9 (test code = 48023999) Sample Type (test code STEPAN valencia Notified = 52143137) % Sat, Pankaj POC (test 77 % code = 85402047) Lab Interpretation Abnormal (test code = 22948-3) [facility] POC docked [id number] 11:16:15 Test Item Value Reference Range Interpretation Comments pH, Pankaj POC (test code 7.32 7.33-7.43 L = 91790230) pCO2,Pankaj POC (test code 31.0 See_Comment L [Au tomated = 19315440) message] The sy stem which generated this result transmitted reference range : 38 - 50 mmHg. The reference range was not used to interpret this result as normal/abnormal . PO2, Venous POC (BKR) 44 See_Comment L [Auto mated (test code = 40946898) [employer]] The system which generated this result transmitted reference range : 50 - 75 mm Hg. The reference range was not used to interpret this result as normal/abnormal . Ionized Calcium POC 1.24 mmol/L 1.15-1.29 (test code = 33701866) HCO3, Pankaj POC (test 16 mmol/L 22-26 L code = 95329620) TCO2 POC (test code = 17 mmol/L 21-32 L 13146039) Base Deficit, Pankaj POC -9 (test code = 40503621) Sample Type (test code STEPAN valencia Notified = 21536697) % Sat, Pankaj POC (test 77 % code = 62377452) Lab Interpretation Abnormal (test code = 79511-8) [facility] POC docked [id number] 11:16:15 Test Item Value Reference Range Interpretation Comments pH, Pankaj POC (test code 7.32 7.33-7.43 L = 28603053) pCO2,Pankaj POC (test code 31.0 See_Comment L [Au tomated = 53229778) message] The sy stem which generated this result transmitted reference range : 38 - 50 mmHg. The reference range was not used to interpret this result as normal/abnormal . PO2, Venous POC (BKR) 44 See_Comment L [Auto mated (test code = 33199720) messa ge] The system which generated this result transmitted reference range : 50 - 75 mm Hg. The reference range was not used to interpret this result as normal/abnormal . Ionized Calcium POC 1.24 mmol/L 1.15-1.29 (test code = 47296040) HCO3, Pankaj POC (test 16 mmol/L 22-26 L code = 71189586) TCO2 POC (test code = 17 mmol/L 21-32 L 48545094) Base Deficit, Pankaj POC -9 (test code = 71595539) Sample Type (test code IVEN Physi erik Notified = 92066960) % Sat, Pankaj POC (test 77 % code = 71331057) Lab Interpretation Abnormal (test code = 56680-8) [place] [address] LEAD [id number] 20:59:5612 LEAD EKG FOR [facility] Test Date: [id number] Name: DORA PAEZRY Department: 5520Patient ID: [id number] Room: Gender: M Clinical Trial Manager: [id number]: 1970 Requested By: TANJA Garza Number: [id number] Reading MD: Chiara Calles MeasurementsIntervals [place] Rate: 75 P: 84PR: 153 QRS: 67QRSD: 104 T: 77QT: 344 QTc: 373 Interpretive StatementsSINUS RHYTHMPOSSIBLE RIGHT VENTRICULAR CONDUCTION DELAY [RSR (QR) IN V1/V2]Electronically Signed On 01-09-2022 8:27:19 CDT by [place] [address] LEAD [id number] 20:59:5612 LEAD EKG FOR [facility] Test Date: [id number] Name: DORA PAEZRY Department: 5520Patient ID: [id number] Room: Gender: M Clinical Trial Manager: [id number]: 1970 Requested By: TANJA Garza Number: [id number] Reading MD: Chiara Calles MeasurementsIntervals [place] Rate: 75 P: 84PR: 153 QRS: 67QRSD: 104 T: 77QT: 344 QTc: 373 Interpretive StatementsSINUS RHYTHMPOSSIBLE RIGHT VENT RICULAR CONDUCTION DELAY [RSR (QR) IN V1/V2]Electronically Signed On 01-09-2022 8:27:19 CDT by WaleedSusanRed Balloon SecurityKennett Iyunzd76 LEAD [id number] 20:59:5612 LEAD EKG FOR [facility] Test Date: [id number] Name: DORA JOSEPH Department: 5520Patient ID: [id number] Room: Gender: M Clinical Trial Manager: [id number]: 1970 Requested By: TANJA Garza Number: [id number] Reading MD: Chiara Calles MeasurementsIntervals [place] Rate: 75 P: 84PR: 153 QRS: 67QRSD: 104 T: 77QT: 344 QTc: 373 Interpretive StatementsSINUS RHYTHMPOSSIBLE RIGHT VENTRICULAR CONDUCTION DELAY [RSR (QR) IN V1/V2]Electronically Signed On 01-09-2022 8:27:19 CDT by Walrobert DavisRed Balloon SecurityKennett Pdhsro52 LEAD [id number] 20:59:5612 LEAD EKG FOR [facility] Test Date: 5140-91-68Wmy Name: DORA PAEZRY Department: 5520Patient ID: [id number] Room: Gender: M Clinical Trial Manager: [id number]: 1970 Requested By: TANJA Garza Number: [id number] Reading MD: Chiara Calles MeasurementsIntervals [place] Rate: 75 P: 84PR: 153 QRS: 67QRSD: 104 T: 77QT: 344 QTc: 373 Interpretive StatementsSINUS RHYTHMPOSSIBLE RIGHT VENTRICULAR CONDUCTION DELAY [RSR (QR) IN V1/V2]Electronically Signed On 01-09-2022 8:27:19 CDT [facility] PureWRXbakariRed Balloon [facility]Prov[facility]12 LEAD [id number] 20:59:5612 LEAD EKG FOR [facility] Test Date: 0900-36-47Vzw Name: DORA JOSEPH Department: 5520Patient ID: [id number] Room: Gender: M Clinical Trial Manager: [id number]: 1970 Requested By: TANJA Garza Number: [id number] Reading MD: Chiara Calles MeasurementsIntervals [place] Rate: 75 P: 84PR: 153 QRS: 67QRSD: 104 T: 77QT: 344 QTc: 373 Interpretive StatementsSINUS RHYTHMPOSSIBLE RIGHT VENTRICULAR CONDUCTION DELAY [RSR (QR) IN V1/V2]Electronically Signed On 01-09-2022 8:27:19 CDT by Chiara Redding Bnxmho02 LEAD [id number] 20:59:5612 LEAD EKG FOR [facility] Test Date: 3139-66-05Kdg Name: DORA JOSEPH Department: 5520Patient ID: [id number] Room: Gender: M Clinical Trial Manager: [id number]: 1970 Requested By: TANJA Garza Number: [id number] Reading MD: Chiara Calles MeasurementsIntervals [place] Rate: 75 P: 84PR: 153 QRS: 67QRSD: 104 T: 77QT: 344 QTc: 373 Interpretive StatementsSINUS RHYTHMPOSSIBLE RIGHT VENTR ICULAR CONDUCTION DELAY [RSR (QR) IN V1/V2]Electronically Signed On 01-09-2022 8:27:19 CDT by Chiara PureWRXbakariRed Balloon SecurityCompaMendel [employer]12 LEAD [id number] 20:59:5612 LEAD EKG FOR [facility] Test Date: 3539-84-30Pbd Name: DORA JOSEPH Department: 5520Patient ID: [id number] Room: Gender: Clinical Trial Manager: [id number]: 1970 Requested By: TANJA Garza Number: [id number] Reading MD: Chiara Calles MeasurementsIntervals [place] Rate: 75 P: 84PR: 153 QRS: 67QRSD: 104 T: 77QT: 344 QTc: 373 Interpretive StatementsSINUS RHYTHMPOSSIBLE RIGHT VENTRICULAR CONDUCTION DELAY [RSR (QR) IN V1/V2]Electronically Signed On 01-09-2022 8:27:19 CDT by Chiara PureWRXbakariRed [employer]12 LEAD [id number] 20:59:5612 LEAD EKG FOR [facility] Test Date: 9174-23-36Xdy Name: DORA PAEZRY Department: 5520Patient ID: [id number] Room: Gender: M Clinical Trial Manager: [id number]: 1970 Requested By: TANJA Garza Number: [id number] Reading MD: Chiara Calles MeasurementsIntervals [place] Rate: 75 P: 84P R: 153 QRS: 67QRSD: 104 T: 77QT: 344 QTc: 373 Interpretive StatementsSINUS RHYTHMPOSSIBLE RIGHT VENTRICULAR CONDUCTION DELAY [RSR (QR) IN V1/V2]Electronically Signed On 01-09-2022 8:27:19 CDT by [employer] LEAD [id number] 20:59:5612 LEAD EKG FOR [facility] Test Date: 9062-28-69Fxu Name: DORA JOSEPH Department: 5520Patient ID: [id number] Room: Gender: M Clinical Trial Manager: [id number]: 1970 Requested By: TANJA Garza Number: [id number] Reading MD: Chiara Calles MeasurementsIntervals [place] Rate: 75 P: 84PR: 153 QRS: 67QRSD: 104 T: 77QT: 344 QTc: 373 Interpretive StatementsSINUS RHYTHMPOSSIBLE RIGHT VENTRICULAR CONDUCTION DELAY [RSR (QR) IN V1/V2]Electronically Signed On 01-09-2022 8:27:19 CDT by [employer]12 LEAD [id number] 20:59:5612 LEAD EKG FOR [facility] Test Date: 2789-32-53Ijv Name: DORA JOSEPH Department: 5520Patient ID: [id number] Room: Gender: M Clinical Trial Manager: [id number]: 1970 Requested By: TANJA Garza Number: [id number] Reading MD: Chiara Calles MeasurementsIntervals [place] Rate: 75 P: 84PR: 153 QRS: 67QRSD: 104 T: 77QT: 344 QTc: 373 Interpretive StatementsSINUS RHYTHMPOSSIBLE RIGHT VENT RICULAR CONDUCTION DELAY [RSR (QR) IN V1/V2]Electronically Signed On 01-09-2022 8:27:19 CDT by [employer]12 LEAD [id number] 20:59:5612 LEAD EKG FOR [facility] Test Date: 2655-62-40Nud Name: DORA APEZRY Department: 5520Patient ID: [id number] Room: Gender: M Clinical Trial Manager: [id number]: 1970 Requested By: TANJA Garza Number: [id number] Reading MD: Chiara Calles MeasurementsIntervals [place] Rate: 75 P: 84PR: 153 QRS: 67QRSD: 104 T: 77QT: 344 QTc: 373 Interpretive StatementsSINUS RHYTHMPOSSIBLE RIGHT VENTRICULAR CONDUCTION DELAY [RSR (QR) IN V1/V2]Electronically Signed On 01-09-2022 8:27:19 CDT by Chiara EsquedaMendel Biotechnology12 LEAD [id number] 20:59:5612 LEAD EKG FOR [facility] Test Date: 0053-38-36Vvb Name: DORA PAEZRY Department: 5520Patient ID: [id number] Room: Gender: M Clinical Trial Manager: [id number]: 1970 Requested By: TANJA Garza Number: [id number] Reading MD: Chiara Calles MeasurementsIntervals [place] Rate: 75 P: 84 MA: 153 QRS: 67QRSD: 104 T: 77QT: 344 QTc: 373 Interpretive StatementsSINUS RHYTHMPOSSIBLE RIGHT VENTRICULAR CONDUCTION DELAY [RSR (QR) IN V1/V2]Electronically Signed On 01-09-2022 8:27:19 CDT by [employer]12 LEAD [id number] 20:59:5612 LEAD EKG FOR [facility] Test Date: 0144-91-33Ynt Name: DORA ELWIN Department: 5520Patient ID: [id number] Room: Gender: M Clinical Trial Manager: [id number]: 1970 Requested By: TANJA Garza Number: [id number] Reading MD: Chiara Calles MeasurementsIntervals [place] Rate: 75 P: 84PR: 153 QRS: 67QRSD: 104 T: 77QT: 344 QTc: 373 Interpretive StatementsSINUS RHYTHMPOSSIBLE RIGHT VENTRICULAR CONDUCTION DELAY [RSR (QR) IN V1/V2]Electronically Signed On 01-09-2022 8:27:19 CDT by [facility] SystemFlipzuJesse [place] [address] LEAD [id number] 20:59:5612 LEAD EKG FOR [facility] Test Date: 0997-38-64Roc Name: DORA JOSEPH Department: 5520Patient ID: [id number] Room: Gender: Clinical Trial Manager: [id number]: 1970 Requested By: TANJA Garza Number: [id number] Reading MD: Chiara Calles MeasurementsIntervals [place] Rate: 75 P: 84PR: 153 QRS: 67QRSD: 104 T: 77QT: 344 QTc: 373 Interpretive StatementsSINUS RHYTHMPOSSIBLE RIGHT VENT RICULAR CONDUCTION DELAY [RSR (QR) IN V1/V2]Electronically Signed On 01-09-2022 8:27:19 CDT by [facility] SystemMatchmoveRachel [place] [address] LEAD [id number] 20:59:5612 LEAD EKG FOR [facility] Test Date: 5803-25-26Fof Name: DORA JOSEPH Department: 5520Patient ID: [id number] Room: Gender: Clinical Trial Manager: [id number]: 1970 Requested By: TANJA Garza Number: [id number] Reading MD: Chiara Calles MeasurementsIntervals [place] Rate: 75 P: 84PR: 153 QRS: 67QRSD: 104 T: 77QT: 344 QTc: 373 Interpretive StatementsSINUS RHYTHMPOSSIBLE RIGHT VENTRICULAR CONDUCTION DELAY [RSR (QR) IN V1/V2]Electronically Signed On 01-09-2022 8:27:19 CDT by [facility] SystemFl[facility]zuGroup [facility] W/AUTO [id number] 23:52:00 Test Item Value Reference Range Interpretation [...] = MX#) 0.8 k/mm3 0.1-0.8 N LIVER [id number] 20:04:00 Test Item Value Reference Range Interpretation Comments TOTAL PROTEIN (test code 6.7 GM/DL 5.0-8.0 N Per formed by = PROT) 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 [facility] ed Ctr ALBUMIN (test code = [...] 67 UNITS/L 25-125 N LYNDSEY) BASIC METABOLIC [id number] 19:54:00 Test Item Value Reference Range Interpretation [...] POCGLU) 81 MG/DL - CT ABD PELVIS W/[id number] 00:00:00 [facility] HO[facility] JOSEPH : 1970 Sex: M Name: HOANG JOSEPH FSED : 1970 Age/S: 51 / M [address] Unit #: [id number] Loc: [place] [address] Phys: Raffaele Levi MD Acct: [id number] Dis Date: Status: PRE ER PHONE #: Exam Date: 09/23/20211999 FAX #: Reason: RUQ PAIN, VOMITING EXAMS: CPT CODE: [id number] CT ABD PELVIS W/CONT 06764 PROCEDURE INFORMATION: Exam: CT Abdomen And Pelvis [...] 1970 Age/S: 51 / M [address] Unit #: [id number] Loc: [place] [address] Phys: Raffaele Levi MD Acct: [id number] Dis Date: Status: PRE ER PHONE #: Exam Date: 09/23/20211999 FAX #: Reason: RUQ PAIN, VOMITING EXAMS: CPT CODE: [id number] CT ABD PELVIS W/CONT 26312 <Continued> abdominal small bowel loops may relate to incomplete luminal distention or enteritis. 2. 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 No obstruction. at 2049 Reported and signed by: Juan Juarez M.D.CC: Raffaele Levi MD Technologist:RT Wicho(R)(CT) CTDI: DLP: Trnscb Date/Time: 09/23/2021 (2048) [email or web address] Orig Print D/T: S: 09/23/2021 (2049) PAGE 2 Signed ReportCOMP. METABOLIC PANEL (24643)2021-09-14 03:57:44 Test Item Value Reference Range Interpretation Comments NA (test code = 132 mmol/L 135-145 L 8024713160) K (test code = 4.1 mmol/L 3.5-5.0 1336217713) CL (test code = 101 mmol/L 98-108 3690817965) CO2 TOTAL (test code = 23 mmol/L 23-31 2730065930) AGAP (test code = 2-16 7212155973) BUN (test code = 23 mg/dL 7-23 7990958961) GLUCOSE (test code = 97 mg/dL 70-110 0267872412) CREATININE (test code = 1.48 mg/dL 0.60-1.25 H 3450751601) TOTAL BILI (test code = 0.3 mg/dL 0.1-1.0 9943841146) CALCIUM (test code = 9.0 mg/dL 8.6-10.6 1150044713) T PROTEIN (test code = 6.2 g/dL 6.3-8.2 L 5513145418) ALBUMIN (test code = 3.7 g/dL 3.5-5.0 3947430548) ALK PHOS (test code = 82 U/L 34-122 5941743271) ALTv (test code = 21 U/L 5-50 1742-6) AST(SGOT) (test code = 20 U/L 13-40 3071820177) eGFR (test code = mL/min/1.73m2 0279222789) GILBERTO (test code = GILBERTO) Association of [...] tests). Lab Interpretation Abnormal (test code = 20764-4) [facility] WITH [id number] 03:52:42 Test Item Value Reference Range Interpretation [...] RDW-SD (test code = 47.2 fL 38.5-51.6 94434-2) RDW-CV (test code = 14.0 % 12.1-15.4 788-0) PLT (test code = See_Comment H [Automated 777-3) message] The sy stem which generated this result transmitted reference range : 150 - 328 10*3/ ?L. The reference r meredith was not used to interpret this result as normal/abnormal . MPV (test code = 9.2 fL 9.8-13.0 L 81580-5) NRBC/100 WBC (test See_Comment [Automat ed code = 7138628175) message] The system which generated this result transmitted reference range : 0.0 - 10.0 /100 WBCs. The refer ence range was not u sed to interpret th is result as normal/abnormal . NRBC x10^3 (test code <0.01 See_Comment [Auto mated = 0786887170) message] The s ystem which generated this result transmitted reference range : 10*3/?L. The reference range was not used to interpret this result as normal/abnormal . GRAN MAT (NEUT) % 61.3 % (test code = 770-8) IMM GRAN % (test code 0.20 % = 2544100488) LYMPH % (test code = 23.1 % 736-9) MONO % (test code = 13.7 % 5905-5) EOS % (test code = 1.5 % 713-8) BASO % (test code = 0.2 % 706-2) GRAN MAT x10^3(ANC) 2.78 10*3/uL 1.99-6.95 (test code = 8829324791) IMM GRAN x10^3 (test <0.03 0.00-0.06 code = 9960994647) LYMPH x10^3 (test code 1.05 10*3/uL 1.09-3.23 L = 731-0) MONO x10^3 (test code 0.62 10*3/uL 0.36-1.02 = 742-7) EOS x10^3 (test code = 0.07 10*3/uL 0.06-0.53 711-2) BASO x10^3 (test code <0.03 0.01-0.09 = 704-7) Lab Interpretation Abnormal (test code = 55068-9) [facility] [id number] 13:36:34 Test Item Value Reference Interpretation Comments Range TROPONIN I (test 0.001 ng/mL See_Comment [Automated code = 6924562777) message] The system which generated this result [...] biotin. Lab Interpretation Normal (test code = 82805-3) [facility] [id number] 13:36:34 Test Item Value Reference Range Interpretation Comments NT-proBNP (test code 79 pg/mL See_Comment [Autom ated = 1674429733) message] The system which generated this result transmitted reference range : <=125. The reference range was not used to interpret this result as normal/abnormal . GILBERTO (test code = GILBERTO) Biotin has been reported to cause a negative bias, interpret results relative to patient's use of biotin. Lab Interpretation Normal (test code = 09172-3) [facility]OL[facility] PAN[facility] (NA, K, CL, CO2, GLUCOSE, BUN, CREATININE, CA)2021-09-12 13:24:32 Test Item Value Reference Range Interpretation Comments NA (test code = 134 mmol/L 135-145 L 5958257678) K (test code = 4.3 mmol/L 3.5-5.0 6581448425) CL (test code = 102 mmol/L 98-108 1376944363) CO2 TOTAL (test code = 23 mmol/L 23-31 4840060490) AGAP (test code = 2-16 6138070381) BUN (test code = 22 mg/dL 7-23 8542863479) GLUCOSE (test code = 89 mg/dL 70-110 1593747225) CREATININE (test code = 1.69 mg/dL 0.60-1.25 H 4072997206) CALCIUM (test code = 9.0 mg/dL 8.6-10.6 0063030798) eGFR (test code = mL/min/1.73m2 2944843296) GILBERTO (test code = GILBERTO) Association of [...] tests). Lab Interpretation Abnormal (test code = 99548-4) [facility] WITH [id number] 13:09:28 Test Item Value Reference Range Interpretation [...] RDW-SD (test code = 45.3 fL 38.5-51.6 36460-4) RDW-CV (test code = 13.9 % 12.1-15.4 788-0) PLT (test code = See_Comment H [Automated 777-3) message] The sy stem which generated this result transmitted reference range : 150 - 328 10*3/ ?L. The reference r meredith was not used to interpret this result as normal/abnormal . MPV (test code = 9.0 fL 9.8-13.0 L 88440-4) NRBC/100 WBC (test See_Comment [Automat ed code = 2087153451) message] The system which generated this result transmitted reference range : 0.0 - 10.0 /100 WBCs. The refer ence range was not u sed to interpret th is result as normal/abnormal . NRBC x10^3 (test code <0.01 See_Comment [Auto mated = 1477657462) message] The s ystem which generated this result transmitted reference range : 10*3/?L. The reference range was not used to interpret this result as normal/abnormal . GRAN MAT (NEUT) % 69.7 % (test code = 770-8) IMM GRAN % (test code 0.40 % = 1900163038) LYMPH % (test code = 16.9 % 736-9) MONO % (test code = 11.9 % 5905-5) EOS % (test code = 0.7 % 713-8) BASO % (test code = 0.4 % 706-2) GRAN MAT x10^3(ANC) 3.88 10*3/uL 1.99-6.95 (test code = 8400798661) IMM GRAN x10^3 (test <0.03 0.00-0.06 code = 8905509947) LYMPH x10^3 (test code 0.94 10*3/uL 1.09-3.23 L = 731-0) MONO x10^3 (test code 0.66 10*3/uL 0.36-1.02 = 742-7) EOS x10^3 (test code = 0.04 10*3/uL 0.06-0.53 L 711-2) BASO x10^3 (test code <0.03 0.01-0.09 = 704-7) Lab Interpretation Abnormal (test code = 46878-0) [facility] WITH [id number] 05:55:28 Test Item Value Reference Range Interpretation [...] RDW-SD (test code = 45.4 fL 38.5-51.6 46990-3) RDW-CV (test code = 13.8 % 12.1-15.4 788-0) PLT (test code = See_Comment [Automated 777-3) message] The sy stem which generated this result transmitted reference range : 150 - 328 10*3/ ?L. The reference r meredith was not used to interpret this result as normal/abnormal . MPV (test code = 9.2 fL 9.8-13.0 L 49205-2) NRBC/100 WBC (test See_Comment [Automat ed code = 3855861456) message] The system which generated this result transmitted reference range : 0.0 - 10.0 /100 WBCs. The refer ence range was not u sed to interpret th is result as normal/abnormal . NRBC x10^3 (test code <0.01 See_Comment [Auto mated = 3183627639) message] The s ystem which generated this result transmitted reference range : 10*3/?L. The reference range was not used to interpret this result as normal/abnormal . GRAN MAT (NEUT) % 60.6 % (test code = 770-8) IMM GRAN % (test code 0.20 % = 2716491149) LYMPH % (test code = 25.5 % 736-9) MONO % (test code = 10.5 % 5905-5) EOS % (test code = 2.8 % 713-8) BASO % (test code = 0.4 % 706-2) GRAN MAT x10^3(ANC) 3.23 10*3/uL 1.99-6.95 (test code = 6177445163) IMM GRAN x10^3 (test <0.03 0.00-0.06 code = 7050764280) LYMPH x10^3 (test code 1.36 10*3/uL 1.09-3.23 = 731-0) MONO x10^3 (test code 0.56 10*3/uL 0.36-1.02 = 742-7) EOS x10^3 (test code = 0.15 10*3/uL 0.06-0.53 711-2) BASO x10^3 (test code <0.03 0.01-0.09 = 704-7) Lab Interpretation Abnormal (test code = 63496-9) [facility] 05:48:47 Test Item Value Reference Range Interpretation Comments LIPASE (test code = 9864115034) 116 U/L 0-220 Lab Interpretation (test code = Normal 85677-2) [facility]. METABOLIC PANEL (45340)2021-09-09 05:48:46 Test Item Value Reference Range Interpretation Comments NA (test code = 137 mmol/L 135-145 3773002556) K (test code = 4.0 mmol/L 3.5-5.0 1077443354) CL (test code = 108 mmol/L 98-108 7798486164) CO2 TOTAL (test code = 22 mmol/L 23-31 L 3296442607) AGAP (test code = 2-16 0897249446) BUN (test code = 23 mg/dL 7-23 7763499175) GLUCOSE (test code = 89 mg/dL 70-110 3544541949) CREATININE (test code = 1.28 mg/dL 0.60-1.25 H 7308717167) TOTAL BILI (test code = 0.4 mg/dL 0.1-1.2 0776571696) CALCIUM (test code = 8.9 mg/dL 8.6-10.6 5690917085) T PROTEIN (test code = 6.0 g/dL 6.3-8.2 L 6997983513) ALBUMIN (test code = 3.5 g/dL 3.5-5.0 8656551445) ALK PHOS (test code = 67 U/L 34-122 0234213564) ALTv (test code = 18 U/L 5-50 1742-6) AST(SGOT) (test code = 22 U/L 13-40 2729426536) eGFR (test code = mL/min/1.73m2 6545113806) GILBERTO (test code = GILBERTO) Association of [...] tests). Lab Interpretation Abnormal (test code = 58946-7) [facility]. METABOLIC PANEL (29093)2021-09-08 02:29:45 Test Item Value Reference Range Interpretation Comments NA (test code = 138 mmol/L 135-145 2853059413) K (test code = 4.3 mmol/L 3.5-5.0 3604137155) CL (test code = 106 mmol/L 98-108 3779866779) CO2 TOTAL (test code = 27 mmol/L 23-31 5587562573) AGAP (test code = 2-16 8117586919) BUN (test code = 22 mg/dL 7-23 3253359771) GLUCOSE (test code = 90 mg/dL 70-110 3043697713) CREATININE (test code = 1.36 mg/dL 0.60-1.25 H 5539407964) TOTAL BILI (test code = 0.4 mg/dL 0.1-1.6 7200685132) CALCIUM (test code = 9.2 mg/dL 8.6-10.6 9162764597) T PROTEIN (test code = 6.5 g/dL 6.3-8.2 4741753222) ALBUMIN (test code = 3.8 g/dL 3.5-5.0 1021773698) ALK PHOS (test code = 73 U/L 34-122 1704179764) ALTv (test code = 19 U/L 5-50 1742-6) AST(SGOT) (test code = 24 U/L 13-40 1035221485) eGFR (test code = mL/min/1.73m2 2993431972) GILBERTO (test code = GILBERTO) Association of [...] tests). Lab Interpretation Abnormal (test code = 50845-2) [facility] 02:29:45 Test Item Value Reference Range Interpretation Comments LIPASE (test code = 4711449673) 75 U/L 0-220 Lab Interpretation (test code = Normal 63185-0) [facility] WITH [id number] 02:15:21 Test Item Value Reference Range Interpretation Comments WBC (test code = See_Comment [Automated 8990-2) message] The sy stem which [...] RDW-SD (test code = 45.9 fL 38.5-51.6 99818-6) RDW-CV (test code = 13.6 % 12.1-15.4 788-0) PLT (test code = See_Comment [Automated 777-3) message] The sy stem which generated this result transmitted reference range : 150 - 328 10*3/ ?L. The reference r meredith was not used to interpret this result as normal/abnormal . MPV (test code = 9.4 fL 9.8-13.0 L 35253-4) NRBC/100 WBC (test See_Comment [Automat ed code = 8938614783) message] The system which generated this result transmitted reference range : 0.0 - 10.0 /100 WBCs. The refer ence range was not u sed to interpret th is result as normal/abnormal . NRBC x10^3 (test code <0.01 See_Comment [Auto mated = 7772480840) message] The s ystem which generated this result transmitted reference range : 10*3/?L. The reference range was not used to interpret this result as normal/abnormal . GRAN MAT (NEUT) % 66.0 % (test code = 770-8) IMM GRAN % (test code 0.50 % = 3226714178) LYMPH % (test code = 20.0 % 736-9) MONO % (test code = 9.8 % 5905-5) EOS % (test code = 3.5 % 713-8) BASO % (test code = 0.2 % 706-2) GRAN MAT x10^3(ANC) 3.77 10*3/uL 1.99-6.95 (test code = 4528548959) IMM GRAN x10^3 (test 0.03 10*3/uL 0.00-0.06 code = 6407478092) LYMPH x10^3 (test code 1.14 10*3/uL 1.09-3.23 = 731-0) MONO x10^3 (test code 0.56 10*3/uL 0.36-1.02 = 742-7) EOS x10^3 (test code = 0.20 10*3/uL 0.06-0.53 711-2) BASO x10^3 (test code <0.03 0.01-0.09 = 704-7) Lab Interpretation Abnormal (test code = 59807-7) [facility] Center[facility] Whole [id number] 02:10:44 Test Item Value Reference Range Interpretation Comments LACTIC ACID (test code = 1.35 mmol/L 0.50-2.20 4478618566) Lab Interpretation (test code = Normal 84018-5) [facility] [id number] 15:31:19 Test Item Value Reference Range Interpretation Comments Case Report (test code Surgical Pathology ? ? = 7686025502) ?Case: [id number] ? Authorizing Provider: ?Bia Pedro MD ?Collected: ? 09/03/2021 08 ?Ordering Location: ? ? [facility] OR ? Received: ?09/03/2021841 ? Department ? Pathologist: ? Shaneka Douglas MD ? Specimen: ? ?ILEUM, Ileostomy ( staple ?end proximal ) ? Final Diagnosis (test g9wqvAGsAUGkc0cyEPIzeS code = 1586187562) FuZzEwMzNcZnRuYmpcdWMx IHtccnRmMVxlcGljOTYwMV zejvZzEEChnEKiJ2Wcnfiq HEosLF6vHB6lnEdacAGbcA IgJUCwToWwu5hse079qAFo g3zwVFBJynawrRm2yHdbY3 0ob2V7LgbvP07gxFQkCVW8 RAWdAUNbmVMzBVGnWZK1QK RnkTMcS7rqESChXL2papxn WXxcROsiUNWdwFI5SUKbhC KuX5LgRIIbFTskWKUmsgt5 EnOaOv0mbAWahMsySPaaDC JkXHBsYWluXGZzMjBccGFy IEEuIElMRVVNLCBJTEVPU1 XPHOw6DUMdvsGjVDQjGQ0h QkVOSUdOIElMRUFMIFRJU1 QTIEJHJQJCLPOWI7NTLP6V L75JTEspCURAT7aJDgSkEK 6HOICNZbtSP0SSXZMAORIU RUxTLCBccGFyICAgICAgIC JFE51TSEXMXS0OVBgCZAwy LUfTI1PMW21GLWXllpgaPG JcZnMyMiBTcmkgQmhhcmF0 wIzaX6T4rZCgZECDLpHOOQ JpzhpyFTG8x8eiyYPlGFJo oFIjUkChUPYqXCOer9hkMU VmbGFuZzEwMzNcZnRuYmpc nPTkMUBzSrNmt1yoj332jK Van4kzVWYtShL1iAMlTYEh tMlfmrw6rMndFgGsGAXoq8 lzcyBcZmNoYXJzZXQwIEFy aUXaU611ORCfXGjvo8sxm4 DwAJTugLUjv1G9OMRJSXbi GpSzN036r3mkv0xvgzKidE F8NOWmXMX3BDnteaEzcnQ9 KOhcvXGwNuG8NUvbpjHbEE doqfEaxkWfTya1WBXkL617 CEP3fSbix4xtTZR1BTMcPE YxYjplZt4giQXmE971IOTz HHFXYKMkgTq5XBZuyjNdkw XatDCIv095P616x6caYKIf xwIguIhOpeojt9ftT921ME BhcGVydzEyMjQwXHBhcGVy pOY9LLLhQE5teeogZXefOX scXSEtyzH2UEOfxBKkM0Dw NDIrAD2apfbkESU0AFpePT IcKEG0ReZmPINvg2Jenjz5 BpXluj9wid30NMV7f5KefK obFPK0SCL1LnKfMe9hjGZy QORuKN9xEaEdbRDqFNKnga 29sIlqVZocfvPixG9vSxNp KDCvuIErQQSqFD7ctTQmKR XktP1izpvrQXGrZpCtpixd VITdkZmfbxNqFb1kiZnqXB C2LTqxU7lvoY5kQyW4PJxl A2iydV7qWGf2ZQychKR7BR FyiK3lXL9xzfvjx5pkWDzm GEhlQBWtitY0hvX9UFBzxL LwJ2ZgwE5mURJyST4hanrn a3syXND5HXfwGWEcDWX4Su ThXBUjq2Plucp3AoFpw8Wp kPJaYUbrA74aq461TRJbxp MbK8aghRBdkeucoXQrpxxn NKqytlP0WGMoEHQxSUpyIR YxXGZzMjBcbGFuZzEwMzNc aGljaFxmMVxkYmNoXGYxXG bcN9ffQrIrH6OcODTeKiFm tUFsRGpyvDC9QGMhADIex9 5mlLc2WUJkcfwhj1EtPYOc kVKpjDXplB7xfuCqk1kgWZ QnUKXlDNShK1ZxEIJ3sCHd LCXucFMjvED8GH6kjxLeLE 1hZGUgYnkgcmVzaWRlbnRz NKNfUKfso2ofOA9pTGSgqL uxvS9vvXI6ICDoz0quwWJd xHBqw5foh6EmjtHgZXqtHZ CnOFioGHOxNKSjXG3gDVLz lSTkfcNwi0D9UbwuvQFiex jmKtflyjZ9SFzdruxcPLUh SYscW9djZwVxQLPryDfjXv jrh7RvXKMzHCLsDpjtuSOq fX0= Clinical Information 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] [id number]) Gross Description (test t4eujANwGEGixMMNUUElGr code = [id number]) enxdNzZGJuyAIwY6Qclrko NCzsJJ8uRP6zdWxybVJpiV RmMT2PTJEjLqQwGDYbvEZc vsWeRfJgMYGvrFScyIA1XJ GdJF4zcpkhRDnkQIpuSRPw tpY3CHYdxBApC6AvTHWoBK 5yngxoEBD1OZdnrG6ysbMU PbjtWs8oxZWgsGitCyAzCl NoYXJzZXQwXGZuaWwgQXJp DCs3bG1HEsriUVH0BPCLDa hdUGWzVJ9Cc6tuVYTdmBFf HIF3UOsihWFcTEMkTQHaOC z5YPTxLRfrfKDmQW0jkTms LfimlEokd6GsrCWqKKauYL BrLNOxQZhjHUBjSZ3RSmHx YHbTPEPgDIEyJyI4VWq5UW IGClAnDnTqRFc7Ntx5RxKp IGx7SIs9MWuKMsOvSAO6Zk JiWiT7BTO0OVXkJGblxQPx IFxcZiBBcmlhbCBcXGZzID XaLKtaBbisSEvtW17nkJaa rR2eGsBkSCKWBfUNJNBVHS 8xfBSrES7DORRfVTdmSCJj bUBJQXW7OK1pYVTELweacJ MfJBVyrZbxVTaroZ0fQS9I MNn1bwOfBDIrYeEvN8XmJ0 kkOF8eDTGuksJcPRYsmDUw ZCBmcmVzaCBhbmQgbGFiZW trLNP7xVHpBZHzWXPmQNFs OR19M3XewoAaSGhzIPkgat DtAeSjGINneFB3lQjezKve m2L8t515HEIraCLksKOvEI 8vSWEid7jxdIAeDxBbpeYe G04na7hkcMExv9UmOFU9RA 6ekJtrvhJqNDwaXL05DU8j IDPpFAobGVDvh9ZqOLn3Uk KwY18vfW6beHYdD7UoXUA0 IDQuMiBjbSBpbiBkaWFtZX Enfpbko2j0jHEwEXN3c87j GKtdLisgbHFaPcLzK82uTV fnczHlEBiydHezSIC1iVer RSPmpMMqEaB3QW5wCgPji5 5dj6ilhuVlqxQdTPBjiPWj qANzQHWmc1GbkMjdcdYaEL LtsN7eHRLxFPBrpIGhjE0u biBpcyBvcGVuIHRvIHJldm KeqHU9CH4laQdopiGozy2t b1b2JMWmidYkNHEdOJFgXI SrwQVef3KjIIPUYWYgRCPl ioWvhVx3RPXmTCD0rK2xhc ButfSpy9CitDo8sMPgQXgr RKRiFSDjsp14A8izSZFjEB BhciANClxwYXIgDQpBMTog dDQidEmaDHphbLVzT6wsBZ RyOILwZVEmesDydBo0BGYb mRJsEI8JRUQ9XNL8v71yOI HwABUzZFSqpsUqgCm8AYox UTDuVJbLXnhxIs12LMjdl5 SdyMurtiLhyfQpVN08KVEx jjHldUIlNZ5BKFEsoxARNw Z8qYgmXEe9YWR3VHvvZBO7 fQ1hc1iie8GuKsPZw0Jas7 PjciClh8D5VFIvfUwuyB3d IQ2xtyipDPXyJTR6z2VwLJ OHYLwhaCwprV3aIIMaK49v d5VRs3FdYJBvLWpdv9syfH gre7LeiPPbSGkvJWNtqLZo GKrwyL1sDgNsl8uxdTp2PT clysE4XPHore7NOjapwU6r UhMdq2poeYe6IDRHPgrhbj D3s1affXwhl7YtsNFxSX2G Cn0= Disclaimer (test code = o2ywwQLwYDSsw2tdMRZmkB [id number]) FuZzEwMzNcZnRuYmpcdWMx MJeitiOlXFshw1TbF7PuHs AwMFxhbnNpXGRlZmxhbmcx ZSKjQMI0vnUtPPDxRXgzPI NkIRiqIj4bjVQwbUyiOrZp OHZdq9jsiqNVGKmrCiZqW9 07XHFaKQbid4ktx3WoCAFr mYXgp5Q1NFZXxvatnZq9sD yxQ16zy2T8DmamG8gjRIXp RKAtF8VdSG3kBNOcDeh2NF X7YSZ0WPLvISJcT3XwIS8l YQXdkLIbSSy8v2pujNbjFN RgVLX2j8yzZYfrhnMwUP8s sb7xyOj1j6jrbdBfZRUuBQ TgrEYTIBLyT7JitYajZm9e aNa2xNhzNivsAJO9Sta2KB 5mit67kpv4nMhpIUAxhime AyV9XOyiMZGvetclSKo7UJ uuTRDivFA8PDDygCByD5Mr IHRiBQ2eqbi0OGR3SLuaXF ToFlL8SLXrvJIoSNDxrAtn HBhbt258KDU1LyWlNR2aV3 Fji3O0gW0nfYSwSTIetUIl YlVyVGUtjj4loBDmJHygi3 JzFXT3bwS6iWSivOZeCUBl HD94Ajuic7XvQamwh4HeQ2 8lcEM0XSwbk3zcLB1lKlL9 frWhMLppm8ffgX3oHxQ1JT apVX5uKE7fWXCtbM0tkkbw XHBnYnJkcmhlYWRccGdicm NbEg4amMboGWB0TKtxJ3fg iR2cPbD5OHaxM1hdtI0xBJ z7VTpfsWW7LCVfeP9cKC2a uwbkz7dmTLczHFahPFVuen T3yfC0QNTeqKHkR2QutF2l TIMlPQ1lpmfyy7rcYBU8SE ncJKYsONM4LnSeGIDki4Ds ays7NwWec5NnxRYoOGffI8 1jx874SSSionXqE3afyNAq xapciZNxoafpBDopurY3RX DinlPca2OfHABsPFE7NCbo OYwonJHbVPMxtXndc0xxU5 RscGFyXHBsYWluXGYxXGZz MjBcbGFuZzEwMzNcaGljaF kkPBwxGyDaEBCuHKjyH5qg BxCuJ1DyOPAaLrMiyQRwK4 ggVGhpcyByZXBvcnQgbWF5 LMjyU3k7ZTZgfdHwnMu7ll ZrMjOhTVJtWKG9QJmarAKu YHLzj5CsptepkTTtAt7kcV EwYILusA1xEKJuTDMtFXbn PQ3zpPl4ACOTeGBhvSHwEl IQGKWuCB47epKcGVKNofng q3S1MWglKDPrq4YaxXKqM3 arg5RoZYJtl00lES6wv9E3 e6wvRLP2SC6bg9QcLMIywT GujSRzDXXhn7Osljyoe4Tg JRYvhaQaj1VnVCBslgZjuC MoPOPpdsWawc6huxMiXWRo MTRvV5MzrcbrkXvootKqCR Qveh6tkqRhIWJ1VOMSTSWa OBMyk6UapI6xtPSBKUC0wJ Lvti7bsaAEwJTgSIZmkf03 CEVrGB9zE4nmLVQfOLLokz MmhPUyj8QoPMCwaPR6cSFw AM9BGmGXk44qLLYpVZCDst YqDKNhySlxiBN0wwX9sG6b IChGREEpLlx+IFRoZSBGRE QtNY5pvtOyb7BjcaGgiJnd RZFkbEXtl6VmsVAub3BdeT tgd6NevGBqvZTfES9cRGBh clxwYXIgVVRNQiBMYWJvcm N6a4AeCLSvZQTnXCD5dXtc rvj1RQEvaP5qDITtO2sfbf kzXGfdZDQen7XheQ4kbZRT kNOes2FtfBSekVDYuGLoYV 5ayiElAXrPBAyIKQT1ghWv NXQea1BfWNzrW3eaN95zzN neaJe9jEW9AEW9bE1jNup+ IFxwYXJccGFyIEFwcHJvcH HmYMFkmXwcyvJfL0QawpRm bW8afXYsehEtPX0rCD1nS5 H6rRZdZYLwujJys2hpLVpv dmUgYmVlbiByZXZpZXdlZC Qao0EsYRcbGAL0YJlccwFs bmNsdWRpbmcgSCZFLCBTcG FlqWAgQAT2SXogvuQaefMh SP7hyX5txMzumB2taJPhnO X4bsoaAOMnLSVihWeeZJMg KB6kaWVhJHWkklODiHzpfL NrhL7zD1ZkKWGtAHHfoq0e TZVknG3nQUooc4VamyzzSW KhFDRvDWLnnpZrxj6oCHXe xIWCCR1PNHjavNDha0Jngq TdY6uNDOV7MYRsXbOrWpvx IHZanANwdZUoEXVztn90KL WhtH3qzQodPHLmiA2ynY7x eNitkA1wPkLmXaSpODoiTD 0wTZQfF7yxuZYmBESoVZPw D1ixHhRohY2rfQgcRWirOe BzYmMaQLbqXHK7aN== Embedded Images (test code = 7307405646) [facility] [id number] 09:01:06 Test Item Value Reference Range Interpretation Comments Blood Culture-Aerobic No organisms No growth Previo us (test code = 37089-8) isolated prelim inary verified result was Culture In Progress on 08/31/2021 at 060 1 CSTPrevious preliminary verified result was No growth a t 24 hours on 09/01/2021 at 030 1 CSTPrevious preliminary verified result was No growth a t 48 hours on 09/02/2021 at 03 01 CSTPrevious preliminary verified result was No growth a t 72 hours on 09/03/2021 at 03 01 [employer] Blood No organisms No growth Previous Culture-Anaerobic isolated preliminar y (test code = 32866-5) verifi ed result was Culture In Progress on 08/31/2021 at 060 1 CSTPrevious preliminary verified result was No growth a t 24 hours on 09/01/2021 at 030 1 CSTPrevious preliminary verified result was No growth a t 48 hours on 09/02/2021 at 03 01 CSTPrevious preliminary verified result was No growth a t 72 hours on 09/03/2021 at 03 01 [employer] Lab Interpretation Normal (test code = 25512-7) [facility] METABOLIC PANEL (NA, K, CL, CO2, GLUCOSE, BUN, CREATININE, CA)2021-09-04 13:22:54 Test Item Value Reference Range Interpretation Comments NA (test code = 132 mmol/L 135-145 L 6250786324) K (test code = 4.3 mmol/L 3.5-5.0 3103451658) CL (test code = 104 mmol/L 98-108 7194728955) CO2 TOTAL (test code = 23 mmol/L 23-31 2091970625) AGAP (test code = 2-16 5261655574) BUN (test code = 15 mg/dL 7-23 3968116002) GLUCOSE (test code = 96 mg/dL 70-110 3578035640) CREATININE (test code = 1.42 mg/dL 0.60-1.25 H 2312328715) CALCIUM (test code = 8.7 mg/dL 8.6-10.6 3741150933) eGFR (test code = mL/min/1.73m2 2458872417) GILBERTO (test code = GILBERTO) Association of [...] tests). Lab Interpretation Abnormal (test code = 62359-1) [facility] METABOLIC PANEL (NA, K, CL, CO2, GLUCOSE, BUN, CREATININE, CA)2021-09-04 13:22:54 Test Item Value Reference Range Interpretation Comments NA (test code = 132 mmol/L 135-145 L 8993747270) K (test code = 4.3 mmol/L 3.5-5.0 4118891525) CL (test code = 104 mmol/L 98-108 7908285177) CO2 TOTAL (test code = 23 mmol/L 23-31 6629499531) AGAP (test code = 2-16 2843515264) BUN (test code = 15 mg/dL 7-23 0507449544) GLUCOSE (test code = 96 mg/dL 70-110 9552111017) CREATININE (test code = 1.42 mg/dL 0.60-1.25 H 4233490046) CALCIUM (test code = 8.7 mg/dL 8.6-10.6 0286171827) eGFR (test code = mL/min/1.73m2 1652128321) GILBERTO (test code = GILBERTO) Association of [...] tests). Lab Interpretation Abnormal (test code = 97131-2) [facility] CULTURE [id number] 17:16:36 Test Item Value Reference Range Interpretation Comments Blood Culture Coagulase negative Addition al Workup (test Staphylococcus work-up perfo rmed code = 600-7) only per reque st. Culture plate(s ) will be saved until this date : - 09/08/21 Gram stain Isolated from aerobic (test code = bottle Gram positive 664-3) cocci in [facility] CULTURE [id number] 17:16:36 Test Item Value Reference Range Interpretation Comments Blood Culture Coagulase negative Addition al Workup (test Staphylococcus work-up perfo rmed code = 600-7) only per reque st. Culture plate(s ) will be saved until this date : 09/08/21 Gram stain Isolated from aerobic (test code = bottle Gram positive 664-3) cocci in [facility] Culture - Peripheral Vein # [id number] 17:16:26 Test Item Value Reference Range Interpretation Comments Blood Culture-Aerobic Culture positive. No growth AA P revious (test code = 41836-5) See Blood Culture p reliminary Workup for verified result additional was Culture In information. Progress on 08/31/2021 at 060 1 [employer] Blood No organisms No growth Previous Culture-Anaerobic isolated preliminar y (test code = 38826-0) verifi ed result was Culture In Progress on 09/01/2021 at 012 7 [employer] Lab Interpretation Abnormal (test code = 25677-1) [facility] # [id number] 17:16:26 Test Item Value Reference Range Interpretation Comments Blood Culture-Aerobic Culture positive. No growth AA P revious (test code = 51573-6) See Blood Culture p reliminary Workup for verified result additional was Culture In information. Progress on 08/31/2021 at 060 1 [employer] Blood No organisms No growth Previous Culture-Anaerobic isolated preliminar y (test code = 89124-2) verifi ed result was Culture In Progress on 09/01/2021 at 012 7 [employer] Lab Interpretation Abnormal (test code = 77507-2) [facility] (NA, K, CL, CO2, GLUCOSE, BUN, CREATININE, CA)2021-09-03 12:16:04 Test Item Value Reference Range Interpretation Comments NA (test code = 130 mmol/L 135-145 L 7412066407) K (test code = 4.1 mmol/L 3.5-5.0 4753217069) CL (test code = 103 mmol/L 98-108 3882273205) CO2 TOTAL (test code = 21 mmol/L 23-31 L 9917007776) AGAP (test code = 2-16 1641414160) BUN (test code = 14 mg/dL 7-23 0630661664) GLUCOSE (test code = 90 mg/dL 70-110 5295112532) CREATININE (test code = 1.28 mg/dL 0.60-1.25 H 1871043357) CALCIUM (test code = 8.8 mg/dL 8.6-10.6 6821663361) eGFR (test code = mL/min/1.73m2 1056746141) GILBERTO (test code = GILBERTO) Association of [...] tests). Lab Interpretation Abnormal (test code = 89678-5) [facility] METABOLIC PANEL (NA, K, CL, CO2, GLUCOSE, BUN, CREATININE, CA)2021-09-03 12:16:04 Test Item Value Reference Range Interpretation Comments NA (test code = 130 mmol/L 135-145 L 5485625788) K (test code = 4.1 mmol/L 3.5-5.0 8695694429) CL (test code = 103 mmol/L 98-108 8188191317) CO2 TOTAL (test code = 21 mmol/L 23-31 L 2406000245) AGAP (test code = 2-16 5827426242) BUN (test code = 14 mg/dL 7-23 2294111925) GLUCOSE (test code = 90 mg/dL 70-110 7713844718) CREATININE (test code = 1.28 mg/dL 0.60-1.25 H 3966339727) CALCIUM (test code = 8.8 mg/dL 8.6-10.6 7515817937) eGFR (test code = mL/min/1.73m2 1991396710) GILBERTO (test code = GILBERTO) Association of [...] tests). Lab Interpretation Abnormal (test code = 54818-3) [facility] WITHOUT [id number] 11:53:39 Test Item Value Reference Range Interpretation Comments WBC (test code = 6690-2) See_Comment [A utomated message] The system [employer] generated this result transmit dain reference range : 4.20 - 10.70 10*3/?L. The reference range was not used to interpret this result as normal/abnormal . RBC (test code = 789-8) See_Comment L [Au tomated message] The system [employer] generated this result transmit dain reference range [...] 777-3) See_Comment [Au tomated message] The system [employer] generated this result transmit dain reference range : 150 - 328 10*3/?L. The reference range was not used to interpret this result as normal/abnormal . MPV (test code = 10.1 fL 9.8-13.0 78499-4) RDW-CV (test code = 13.5 % 12.1-15.4 788-0) RDW-SD (test code = 44.6 fL 38.5-51.6 02865-3) NRBC x10^3 (test code = <0.01 See_Comment [Au tomated message] 7942333092) The system [employer] generated this result transmit dain reference range : 10*3/?L. The reference range was not used to interpret this result as normal/abnormal . NRBC/100 WBC (test code See_Comment [Au tomated message] = 5684070137) The system [facility] generated this result transmit dain reference range : 0.0 - 10.0 /100 WBC s. The reference r meredith was not used to interpret this result as normal/abnormal . IPF % (test code = 0166662911) Lab Interpretation (test Abnormal code = 52637-2) [facility] WITHOUT [id number] 11:53:39 Test Item Value Reference Range Interpretation Comments WBC (test code = 6690-2) See_Comment [A utomated message] The system [facility] generated this result transmit dain reference range : 4.20 - 10.70 10*3/?L. The reference range was not used to interpret this result as normal/abnormal . RBC (test code = 789-8) See_Comment L [Au tomated message] The [facility] generated this result transmit dain reference range [...] 777-3) See_Comment [Au tomated message] The system [employer] generated this result transmit dain reference range : 150 - 328 10*3/?L. The reference range was not used to interpret this result as normal/abnormal . MPV (test code = 10.1 fL 9.8-13.0 20673-8) RDW-CV (test code = 13.5 % 12.1-15.4 788-0) RDW-SD (test code = 44.6 fL 38.5-51.6 46328-6) NRBC x10^3 (test code = <0.01 See_Comment [Au tomated message] 1758710876) The system [employer] generated this result transmit dain reference range : 10*3/?L. The reference range was not used to interpret this result as normal/abnormal . NRBC/100 WBC (test code See_Comment [Au tomated message] = 4283518074) The system [employer] generated this result transmit dain reference range : 0.0 - 10.0 /100 WBC s. The reference r meredith was not used to interpret this result as normal/abnormal . IPF % (test code = 3119012042) Lab Interpretation (test Abnormal code = 13948-0) [facility] METABOLIC PANEL (NA, K, CL, CO2, GLUCOSE, BUN, CREATININE, CA)2021-09-02 12:06:01 Test Item Value Reference Range Interpretation Comments NA (test code = 132 mmol/L 135-145 L 4125082153) K (test code = 4.4 mmol/L 3.5-5.0 1898252499) CL (test code = 106 mmol/L 98-108 0629550520) CO2 TOTAL (test code = 22 mmol/L 23-31 L 8372937191) AGAP (test code = 2-16 6128050960) BUN (test code = 16 mg/dL 7-23 3780088205) GLUCOSE (test code = 83 mg/dL 70-110 8973890245) CREATININE (test code = 1.33 mg/dL 0.60-1.25 H 5524888018) CALCIUM (test code = 8.8 mg/dL 8.6-10.6 4737691295) eGFR (test code = mL/min/1.73m2 2486651538) GILBERTO (test code = GILBERTO) Association of [...] tests). Lab Interpretation Abnormal (test code = 08081-1) [facility] (NA, K, CL, CO2, GLUCOSE, BUN, CREATININE, CA)2021-09-02 12:06:01 Test Item Value Reference Range Interpretation Comments NA (test code = 132 mmol/L 135-145 L 4398671574) K (test code = 4.4 mmol/L 3.5-5.0 5646112211) CL (test code = 106 mmol/L 98-108 4157907906) CO2 TOTAL (test code = 22 mmol/L 23-31 L 2588434731) AGAP (test code = 2-16 2352481137) BUN (test code = 16 mg/dL 7-23 6038663749) GLUCOSE (test code = 83 mg/dL 70-110 0901187340) CREATININE (test code = 1.33 mg/dL 0.60-1.25 H 8725634711) CALCIUM (test code = 8.8 mg/dL 8.6-10.6 8869060784) eGFR (test code = mL/min/1.73m2 4202408427) GILBERTO (test code = GILBERTO) Association of [...] tests). Lab Interpretation Abnormal (test code = 64019-2) [facility] METABOLIC PANEL (NA, K, CL, CO2, GLUCOSE, BUN, CREATININE, CA)2021-09-01 21:55:22 Test Item Value Reference Range Interpretation Comments NA (test code = 130 mmol/L 135-145 L 0783557101) K (test code = 4.2 mmol/L 3.5-5.0 6172702397) CL (test code = 103 mmol/L 98-108 6416298552) CO2 TOTAL (test code = 20 mmol/L 23-31 L 8119614910) AGAP (test code = 2-16 5353070755) BUN (test code = 20 mg/dL 7-23 1961624868) GLUCOSE (test code = 106 mg/dL 70-110 6362542157) CREATININE (test code = 1.51 mg/dL 0.60-1.25 H 3029208299) CALCIUM (test code = 8.5 mg/dL 8.6-10.6 L 3726845127) eGFR (test code = mL/min/1.73m2 6222557565) GILBERTO (test code = GILBERTO) Association of [...] tests). Lab Interpretation Abnormal (test code = 11098-4) [facility] METABOLIC PANEL (NA, K, CL, CO2, GLUCOSE, BUN, CREATININE, CA)2021-09-01 21:55:22 Test Item Value Reference Range Interpretation Comments NA (test code = 130 mmol/L 135-145 L 6600060378) K (test code = 4.2 mmol/L 3.5-5.0 2186487937) CL (test code = 103 mmol/L 98-108 2172935015) CO2 TOTAL (test code = 20 mmol/L 23-31 L 1021387954) AGAP (test code = 2-16 9139163460) BUN (test code = 20 mg/dL 7-23 5787974539) GLUCOSE (test code = 106 mg/dL 70-110 0027000235) CREATININE (test code = 1.51 mg/dL 0.60-1.25 H 9745507099) CALCIUM (test code = 8.5 mg/dL 8.6-10.6 L 3641007488) eGFR (test code = mL/min/1.73m2 1391765322) GILBERTO (test code = GILBERTO) Association of [...] tests). Lab Interpretation Abnormal (test code = 36873-1) [facility] POSITIVE BLOOD PATHOGENS DNA [id number] 10:31:32 Test Item Value Reference Range Interpretation Comments Coagulase Negative Positive Negative, See A Staphylococcus (test Comment/Narrative code = 06276-5) GILBERTO (test code = GILBERTO) Coagulase negative [...] contact the Antimicrobial Stewardship Program with questions.Pager: ?[phone] Testing included eleven identification and three resistance marker targets. Lab Interpretation Abnormal (test code = 77096-7) [facility] POSITIVE BLOOD PATHOGENS DNA [id number] 10:31:32 Test Item Value Reference Range Interpretation Comments Coagulase Negative Positive Negative, See A Staphylococcus (test Comment/Narrative code = 04474-3) GILBERTO (test code = GILBERTO) Coagulase negative [...] contact the Antimicrobial Stewardship Program with questions.Pager: ?[phone] Testing included eleven identification and three resistance marker targets. Lab Interpretation Abnormal (test code = 41836-5) [facility] METABOLIC PANEL (NA, K, CL, CO2, GLUCOSE, BUN, CREATININE, CA)2021-09-01 08:38:47 Test Item Value Reference Range Interpretation Comments NA (test code = 130 mmol/L 135-145 L 0766318042) K (test code = 4.0 mmol/L 3.5-5.0 4402123922) CL (test code = 105 mmol/L 98-108 0391861662) CO2 TOTAL (test code = 20 mmol/L 23-31 L 1671186627) AGAP (test code = 2-16 2657005241) BUN (test code = 21 mg/dL 7-23 2299049644) GLUCOSE (test code = 88 mg/dL 70-110 2601835510) CREATININE (test code = 1.31 mg/dL 0.60-1.25 H 2348574231) CALCIUM (test code = 8.5 mg/dL 8.6-10.6 L 7234501658) eGFR (test code = mL/min/1.73m2 3152723205) GILBERTO (test code = GILBERTO) Association of [...] tests). Lab Interpretation Abnormal (test code = 54282-8) [facility] METABOLIC PANEL (NA, K, CL, CO2, GLUCOSE, BUN, CREATININE, CA)2021-09-01 08:38:47 Test Item Value Reference Range Interpretation Comments NA (test code = 130 mmol/L 135-145 L 6258543522) K (test code = 4.0 mmol/L 3.5-5.0 7727406181) CL (test code = 105 mmol/L 98-108 9988837615) CO2 TOTAL (test code = 20 mmol/L 23-31 L 7111386643) AGAP (test code = 2-16 6911531516) BUN (test code = 21 mg/dL 7-23 6197355728) GLUCOSE (test code = 88 mg/dL 70-110 2820761470) CREATININE (test code = 1.31 mg/dL 0.60-1.25 H 1820214220) CALCIUM (test code = 8.5 mg/dL 8.6-10.6 L 0561343251) eGFR (test code = mL/min/1.73m2 1755543312) GILBERTO (test code = GILBERTO) Association of [...] tests). Lab Interpretation Abnormal (test code = 80331-2) [facility] WITH [id number] 08:13:43 Test Item Value Reference Range Interpretation Comments WBC (test code = See_Comment [Automated 7589-2) message] The sy stem which generated this result transmitted reference range : 4.20 - 10.70 10*3/?L. The reference range was not used to interpret this result as normal/abnormal . RBC (test code = See_Comment L [Automated 366-7) message] The sy stem which generated this [...] RDW-SD (test code = 43.0 fL 38.5-51.6 15079-3) RDW-CV (test code = 13.7 % 12.1-15.4 788-0) PLT (test code = See_Comment [Automated 777-3) message] The sy stem which generated this result transmitted reference range : 150 - 328 10*3/ ?L. The reference r meredith was not used to interpret this result as normal/abnormal . MPV (test code = 9.9 fL 9.8-13.0 28353-9) NRBC/100 WBC (test See_Comment [Automat ed code = 7134957020) message] The system which generated this result transmitted reference range : 0.0 - 10.0 /100 WBCs. The refer ence range was not u sed to interpret th is result as normal/abnormal . NRBC x10^3 (test code <0.01 See_Comment [Auto mated = 1702766327) message] The s ystem which generated this result transmitted reference range : 10*3/?L. The reference range was not used to interpret this result as normal/abnormal . GRAN MAT (NEUT) % 48.2 % (test code = 770-8) IMM GRAN % (test code 0.40 % = 8476548370) LYMPH % (test code = 39.5 % 736-9) MONO % (test code = 9.0 % 5905-5) EOS % (test code = 2.3 % 713-8) BASO % (test code = 0.6 % 706-2) GRAN MAT x10^3(ANC) 2.35 10*3/uL 1.99-6.95 (test code = 6605735858) IMM GRAN x10^3 (test <0.03 0.00-0.06 code = 0569457957) LYMPH x10^3 (test code 1.93 10*3/uL 1.09-3.23 = 731-0) MONO x10^3 (test code 0.44 10*3/uL 0.36-1.02 = 742-7) EOS x10^3 (test code = 0.11 10*3/uL 0.06-0.53 711-2) BASO x10^3 (test code 0.03 10*3/uL 0.01-0.09 = 704-7) Lab Interpretation Abnormal (test code = 79080-5) [facility] WITH [id number] 08:13:43 Test Item Value Reference Range Interpretation [...] RDW-SD (test code = 43.0 fL 38.5-51.6 51841-0) RDW-CV (test code = 13.7 % 12.1-15.4 788-0) PLT (test code = See_Comment [Automated 777-3) message] The sy stem which generated this result transmitted reference range : 150 - 328 10*3/ ?L. The reference r meredith was not used to interpret this result as normal/abnormal . MPV (test code = 9.9 fL 9.8-13.0 37692-6) NRBC/100 WBC (test See_Comment [Automat ed code = 8681733179) message] The system which generated this result transmitted reference range : 0.0 - 10.0 /100 WBCs. The refer ence range was not u sed to interpret th is result as normal/abnormal . NRBC x10^3 (test code <0.01 See_Comment [Auto mated = 7971273334) message] The s ystem which generated this result transmitted reference range : 10*3/?L. The reference range was not used to interpret this result as normal/abnormal . GRAN MAT (NEUT) % 48.2 % (test code = 770-8) IMM GRAN % (test code 0.40 % = 3684197789) LYMPH % (test code = 39.5 % 736-9) MONO % (test code = 9.0 % 5905-5) EOS % (test code = 2.3 % 713-8) BASO % (test code = 0.6 % 706-2) GRAN MAT x10^3(ANC) 2.35 10*3/uL 1.99-6.95 (test code = 8196696312) IMM GRAN x10^3 (test <0.03 0.00-0.06 code = 8220311705) LYMPH x10^3 (test code 1.93 10*3/uL 1.09-3.23 = 731-0) MONO x10^3 (test code 0.44 10*3/uL 0.36-1.02 = 742-7) EOS x10^3 (test code = 0.11 10*3/uL 0.06-0.53 711-2) BASO x10^3 (test code 0.03 10*3/uL 0.01-0.09 = 704-7) Lab Interpretation Abnormal (test code = 94677-9) [id number] 06:37:20 Test Item Value Reference Range Interpretation Comments MAGNESIUM (test code = 8285991920) 1.9 mg/dL 1.7-2.4 Lab Interpretation (test code = Normal 33742-4) [facility] [id number] 06:37:20 Test Item Value Reference Range Interpretation Comments MAGNESIUM (test code = 6985721107) 1.9 mg/dL 1.7-2.4 Lab Interpretation (test code = Normal 91577-9) [facility] METABOLIC PANEL (NA, K, CL, CO2, GLUCOSE, BUN, CREATININE, CA)2021-09-01 02:46:47 Test Item Value Reference Range Interpretation Comments NA (test code = 132 mmol/L 135-145 L 8479301102) K (test code = 4.0 mmol/L 3.5-5.0 4960799503) CL (test code = 102 mmol/L 98-108 0916703369) CO2 TOTAL (test code = 21 mmol/L 23-31 L 4174271476) AGAP (test code = 2-16 5617860973) BUN (test code = 24 mg/dL 7-23 H 3718096213) GLUCOSE (test code = 95 mg/dL 70-110 5011046049) CREATININE (test code = 1.40 mg/dL 0.60-1.25 H 6969969225) CALCIUM (test code = 8.6 mg/dL 8.6-10.6 9798947446) eGFR (test code = mL/min/1.73m2 3327706164) GILBERTO (test code = GILBERTO) Association of [...] tests). Lab Interpretation Abnormal (test code = 24652-5) [facility] METABOLIC PANEL (NA, K, CL, CO2, GLUCOSE, BUN, CREATININE, CA)2021-09-01 02:46:47 Test Item Value Reference Range Interpretation Comments NA (test code = 132 mmol/L 135-145 L 3033350106) K (test code = 4.0 mmol/L 3.5-5.0 0710635475) CL (test code = 102 mmol/L 98-108 2438062996) CO2 TOTAL (test code = 21 mmol/L 23-31 L 8396464271) AGAP (test code = 2-16 4322394202) BUN (test code = 24 mg/dL 7-23 H 6383093160) GLUCOSE (test code = 95 mg/dL 70-110 2081346512) CREATININE (test code = 1.40 mg/dL 0.60-1.25 H 5036769126) CALCIUM (test code = 8.6 mg/dL 8.6-10.6 9899369314) eGFR (test code = mL/min/1.73m2 9782840296) GILBERTO (test code = GILBERTO) Association of [...] tests). Lab Interpretation Abnormal (test code = 17210-7) [facility] Acid Whole [id number] 12:49:48 Test Item Value Reference Range Interpretation Comments LACTIC ACID (test code = 2.02 mmol/L 0.50-2.20 QUE S 3550164224) Lab Interpretation (test code = Normal 61340-7) [facility] Acid Whole [id number] 12:49:48 Test Item Value Reference Range Interpretation Comments LACTIC ACID (test code = 2.02 mmol/L 0.50-2.20 QUE S 1193127945) Lab Interpretation (test code = Normal 84216-0) [facility] METABOLIC PANEL (NA, K, CL, CO2, GLUCOSE, BUN, CREATININE, CA)2021-08-31 12:29:06 Test Item Value Reference Range Interpretation Comments NA (test code = 129 mmol/L 135-145 L 7510993822) K (test code = 3.6 mmol/L 3.5-5.0 1740452212) CL (test code = 101 mmol/L 98-108 9073206767) CO2 TOTAL (test code = 18 mmol/L 23-31 L 6723282045) AGAP (test code = 2-16 9960405683) BUN (test code = 35 mg/dL 7-23 H 8946563714) GLUCOSE (test code = 97 mg/dL 70-110 3790014299) CREATININE (test code = 1.58 mg/dL 0.60-1.25 H 1636620175) CALCIUM (test code = 8.3 mg/dL 8.6-10.6 L 5870774368) eGFR (test code = mL/min/1.73m2 3096127014) GILBERTO (test code = GILBERTO) Association of [...] tests). Lab Interpretation Abnormal (test code = 56965-8) [facility] METABOLIC PANEL (NA, K, CL, CO2, GLUCOSE, BUN, CREATININE, CA)2021-08-31 12:29:06 Test Item Value Reference Range Interpretation Comments NA (test code = 129 mmol/L 135-145 L 5273449039) K (test code = 3.6 mmol/L 3.5-5.0 1109681167) CL (test code = 101 mmol/L 98-108 2486377593) CO2 TOTAL (test code = 18 mmol/L 23-31 L 2895360654) AGAP (test code = 2-16 1728778317) BUN (test code = 35 mg/dL 7-23 H 6285617286) GLUCOSE (test code = 97 mg/dL 70-110 1696762698) CREATININE (test code = 1.58 mg/dL 0.60-1.25 H 5815326291) CALCIUM (test code = 8.3 mg/dL 8.6-10.6 L 9287963668) eGFR (test code = mL/min/1.73m2 7051339011) GILBERTO (test code = GILBERTO) Association of [...] tests). Lab Interpretation Abnormal (test code = 42047-6) [facility] [id number] 07:42:44 Test Item Value Reference Range Interpretation Comments TSH (test code = See_Comment [Automated message] 7198378729) The system [employer] generated this result transmitted ref erence range: 0.45 - 4 .70 mIU/L. The refe rence range was not u sed to interpret this result as normal/abnor mal. Lab Interpretation (test Normal code = 64209-7) [facility] [id number] 07:42:44 Test Item Value Reference Range Interpretation Comments TSH (test code = See_Comment [Automated message] 3806020972) The system [employer] generated this result transmitted ref erence range: 0.45 - 4 .70 mIU/L. The refe rence range was not u sed to interpret this result as normal/abnor mal. Lab Interpretation (test Normal code = 06681-5) [facility] METABOLIC PANEL (NA, K, CL, CO2, GLUCOSE, BUN, CREATININE, CA)2021-08-31 07:40:43 Test Item Value Reference Range Interpretation Comments NA (test code = 129 mmol/L 135-145 L 3792364217) K (test code = 3.8 mmol/L 3.5-5.0 Slight 5419639739) hemolysis CL (test code = 102 mmol/L 98-108 5939843389) CO2 TOTAL (test code 18 mmol/L 23-31 L = 9376413259) AGAP (test code = 2-16 2731998886) BUN (test code = 46 mg/dL 7-23 H Slight 8366678012) hemolysis GLUCOSE (test code = 100 mg/dL 70-110 5813939301) CREATININE (test code 1.72 mg/dL 0.60-1.25 H = 5163411889) CALCIUM (test code = 8.5 mg/dL 8.6-10.6 L 1761686789) eGFR (test code = mL/min/1.73m2 8219957716) GILBERTO (test code = GILBERTO) Association of [...] tests). Lab Interpretation Abnormal (test code = 95099-5) [facility] METABOLIC PANEL (NA, K, CL, CO2, GLUCOSE, BUN, CREATININE, CA)2021-08-31 07:40:43 Test Item Value Reference Range Interpretation Comments NA (test code = 129 mmol/L 135-145 L 7502807133) K (test code = 3.8 mmol/L 3.5-5.0 Slight 3221549166) hemolysis CL (test code = 102 mmol/L 98-108 6425799278) CO2 TOTAL (test code 18 mmol/L 23-31 L = 3544604522) AGAP (test code = 2-16 6277181494) BUN (test code = 46 mg/dL 7-23 H Slight 7984469746) hemolysis GLUCOSE (test code = 100 mg/dL 70-110 5559722856) CREATININE (test code 1.72 mg/dL 0.60-1.25 H = 2119618520) CALCIUM (test code = 8.5 mg/dL 8.6-10.6 L 5820668040) eGFR (test code = mL/min/1.73m2 4340703461) GILBERTO (test code = GILBERTO) Association of [...] tests). Lab Interpretation Abnormal (test code = 16261-8) [facility] [id number] 07:08:01 Test Item Value Reference Range Interpretation Comments LACTIC ACID (test code = 1.96 mmol/L 0.50-2.20 QUE S 5506234536) Lab Interpretation (test code = Normal 28778-2) [facility] Whole [id number] 07:08:01 Test Item Value Reference Range Interpretation Comments LACTIC ACID (test code = 1.96 mmol/L 0.50-2.20 QUE S 0953559701) Lab Interpretation (test code = Normal 68626-5) [facility]OSMOLALITY, SERUM OR [id number] 06:33:43 Test Item Value Reference Range Interpretation Comments OSMOLALITY (test code = See_Comment [Au tomated message] 5138266663) The system [employer] generated this result transmitted ref erence range: 278 - 30 5 mOsm/kg. The re ference range was not u sed to interpret this result as normal/abnor mal. Lab Interpretation (test Normal code = 86864-5) [facility]OSMOL[facility]ITY, SERUM OR [id number] 06:33:43 Test Item Value Reference Range Interpretation Comments OSMOLALITY (test code = See_Comment [Au tomated message] 3392251708) The system [employer] generated this result transmitted ref erence range: 278 - 30 5 mOsm/kg. The re ference range was not u sed to interpret this result as normal/abnor mal. Lab Interpretation (test Normal code = 99330-9) [facility] [id number] 04:28:44 Test Item Value Reference Interpretation Comments Range TROPONIN I (test 0.003 ng/mL See_Comment [Automated code = 7929935613) message] The system which generated this result [...] biotin. Lab Interpretation Normal (test code = 81811-6) [facility] [id number] 04:28:44 Test Item Value Reference Interpretation Comments Range TROPONIN I (test 0.003 ng/mL See_Comment [Automated code = 9612349432) message] The system which generated this result [...] biotin. Lab Interpretation Normal (test code = 57102-8) [facility] METABOLIC PANEL (NA, K, CL, CO2, GLUCOSE, BUN, CREATININE, CA)2021-08-31 04:07:42 Test Item Value Reference Range Interpretation Comments NA (test code = 125 mmol/L 135-145 L 7690828481) K (test code = 4.1 mmol/L 3.5-5.0 Slight 8625716112) hemolysis CL (test code = 100 mmol/L 98-108 4955284236) CO2 TOTAL (test code 17 mmol/L 23-31 L = 8954315114) AGAP (test code = 2-16 5217885271) BUN (test code = 52 mg/dL 7-23 H Slight 6367263577) hemolysis GLUCOSE (test code = 94 mg/dL 70-110 8994338351) CREATININE (test code 1.77 mg/dL 0.60-1.25 H = 6103096885) CALCIUM (test code = 8.2 mg/dL 8.6-10.6 L 2899613903) eGFR (test code = mL/min/1.73m2 6888342637) GILBERTO (test code = GILBERTO) Association of [...] tests). Lab Interpretation Abnormal (test code = 52310-1) [facility] METABOLIC PANEL (NA, K, CL, CO2, GLUCOSE, BUN, CREATININE, CA)2021-08-31 04:07:42 Test Item Value Reference Range Interpretation Comments NA (test code = 125 mmol/L 135-145 L 3766163701) K (test code = 4.1 mmol/L 3.5-5.0 Slight 8360894768) hemolysis CL (test code = 100 mmol/L 98-108 6333827166) CO2 TOTAL (test code 17 mmol/L 23-31 L = 4337513232) AGAP (test code = 2-16 7033182391) BUN (test code = 52 mg/dL 7-23 H Slight 2109052331) hemolysis GLUCOSE (test code = 94 mg/dL 70-110 6995700158) CREATININE (test code 1.77 mg/dL 0.60-1.25 H = 3015982240) CALCIUM (test code = 8.2 mg/dL 8.6-10.6 L 2763709724) eGFR (test code = mL/min/1.73m2 3849368382) GILBERTO (test code = GILBERTO) Association of [...] tests). Lab Interpretation Abnormal (test code = 78416-3) [facility]TROP[facility] [id number] 00:22:59 Test Item Value Reference Interpretation Comments Range TROPONIN I (test 0.003 ng/mL See_Comment [Automated code = 2107856562) message] The system which generated this result [...] biotin. Lab Interpretation Normal (test code = 83194-7) [facility]N-TERMINAL [id number] 00:22:59 Test Item Value Reference Range Interpretation Comments NT-proBNP (test code 55 pg/mL See_Comment [Autom ated = 3319046961) message] The system which generated this result transmitted reference range : <=125. The reference range was not used to interpret this result as normal/abnormal . GILBERTO (test code = GILBERTO) Biotin has been reported to cause a negative bias, interpret results relative to patient's use of biotin. Lab Interpretation Normal (test code = 16546-9) [facility]TROP[facility] [id number] 00:22:59 Test Item Value Reference Interpretation Comments Range TROPONIN I (test 0.003 ng/mL See_Comment [Automated code = 5997245346) message] The system which generated this result [...] biotin. Lab Interpretation Normal (test code = 92342-3) [facility]AL [id number] 00:22:59 Test Item Value Reference Range Interpretation Comments NT-proBNP (test code 55 pg/mL See_Comment [Autom ated = 3066856090) message] The system which generated this result transmitted reference range : <=125. The reference range was not used to interpret this result as normal/abnormal . GILBERTO (test code = GILBERTO) Biotin has been reported to cause a negative bias, interpret results relative to patient's use of biotin. Lab Interpretation Normal (test code = 64956-9) [facility]COMP[facility]OLIC [facility] ([id number])2021-08-31 00:07:17 Test Item Value Reference Range Interpretation Comments NA (test code = 126 mmol/L 135-145 L 7071268043) K (test code = 4.3 mmol/L 3.5-5.0 Slight 1303859211) hemolysis CL (test code = 96 mmol/L 98-108 L 0245702625) CO2 TOTAL (test code 18 mmol/L 23-31 L = 5370147117) AGAP (test code = 2-16 8951349037) BUN (test code = 58 mg/dL 7-23 H Slight 4511350356) hemolysis GLUCOSE (test code = 108 mg/dL 70-110 2590484602) CREATININE (test code 2.11 mg/dL 0.60-1.25 H = 6994775412) TOTAL BILI (test code 0.7 mg/dL 0.1-1.1 = 7339571829) CALCIUM (test code = 9.2 mg/dL 8.6-10.6 5208802352) T PROTEIN (test code 7.6 g/dL 6.3-8.2 = 9132061545) ALBUMIN (test code = 4.9 g/dL 3.5-5.0 2025865582) ALK PHOS (test code = 96 U/L 34-122 Slight 2844745442) hemolysis ALTv (test code = 27 U/L 5-50 1742-6) AST(SGOT) (test code 46 U/L 13-40 H Slight = 5907675777) hemolysis eGFR (test code = mL/min/1.73m2 7420717164) GILBERTO (test code = GILBERTO) Association of [...] tests). Lab Interpretation Abnormal (test code = 32572-4) [facility]. METABOLIC PANEL ([id number])2021-08-31 00:07:17 Test Item Value Reference Range Interpretation Comments NA (test code = 126 mmol/L 135-145 L 8638546088) K (test code = 4.3 mmol/L 3.5-5.0 Slight 7779206226) hemolysis CL (test code = 96 mmol/L 98-108 L 4492650424) CO2 TOTAL (test code 18 mmol/L 23-31 L = 1573075744) AGAP (test code = 2-16 2225553164) BUN (test code = 58 mg/dL 7-23 H Slight 0021205341) hemolysis GLUCOSE (test code = 108 mg/dL 70-110 9901767922) CREATININE (test code 2.11 mg/dL 0.60-1.25 H = 2606778691) TOTAL BILI (test code 0.7 mg/dL 0.1-1.1 = 9682574372) CALCIUM (test code = 9.2 mg/dL 8.6-10.6 1873126716) T PROTEIN (test code 7.6 g/dL 6.3-8.2 = 8456250405) ALBUMIN (test code = 4.9 g/dL 3.5-5.0 2646627672) ALK PHOS (test code = 96 U/L 34-122 Slight 9366098509) hemolysis ALTv (test code = 27 U/L 5-50 1742-6) AST(SGOT) (test code 46 U/L 13-40 H Slight = 7940354776) hemolysis eGFR (test code = mL/min/1.73m2 1742638720) GILBERTO (test code = GILBERTO) Association of [...] tests). Lab Interpretation Abnormal (test code = 94695-2) [facility] WITH [id number] 23:36:10 Test Item Value Reference Range Interpretation Comments WBC (test code = See_Comment [Automated 8289-2) message] The sy stem which generated this result transmitted reference range : 4.20 - 10.70 10*3/?L. The reference range was not used to interpret this result as normal/abnormal . RBC (test code = See_Comment [Automated 910-8) message] The sy stem which generated this [...] RDW-SD (test code = 41.7 fL 38.5-51.6 13483-0) RDW-CV (test code = 13.4 % 12.1-15.4 788-0) PLT (test code = See_Comment [Automated 777-3) message] The sy stem which generated this result transmitted reference range : 150 - 328 10*3/ ?L. The reference r meredith was not used to interpret this result as normal/abnormal . MPV (test code = 10.3 fL 9.8-13.0 08933-7) NRBC/100 WBC (test See_Comment [Automat ed code = 5491461800) message] The system which generated this result transmitted reference range : 0.0 - 10.0 /100 WBCs. The refer ence range was not u sed to interpret th is result as normal/abnormal . NRBC x10^3 (test code <0.01 See_Comment [Auto mated = 2127477242) message] The s ystem which generated this result transmitted reference range : 10*3/?L. The reference range was not used to interpret this result as normal/abnormal . GRAN MAT (NEUT) % 60.6 % (test code = 770-8) IMM GRAN % (test code 0.30 % = 5967192289) LYMPH % (test code = 29.1 % 736-9) MONO % (test code = 8.8 % 5905-5) EOS % (test code = 0.6 % 713-8) BASO % (test code = 0.6 % 706-2) GRAN MAT x10^3(ANC) 4.08 10*3/uL 1.99-6.95 (test code = 1524537960) IMM GRAN x10^3 (test <0.03 0.00-0.06 code = 5990469681) LYMPH x10^3 (test code 1.96 10*3/uL 1.09-3.23 = 731-0) MONO x10^3 (test code 0.59 10*3/uL 0.36-1.02 = 742-7) EOS x10^3 (test code = 0.04 10*3/uL 0.06-0.53 L 711-2) BASO x10^3 (test code 0.04 10*3/uL 0.01-0.09 = 704-7) Lab Interpretation Abnormal (test code = 20580-1) [facility] WITH [id number] 23:36:10 Test Item Value Reference Range Interpretation [...] RDW-SD (test code = 41.7 fL 38.5-51.6 69565-0) RDW-CV (test code = 13.4 % 12.1-15.4 788-0) PLT (test code = See_Comment [Automated 777-3) message] The sy stem which generated this result transmitted reference range : 150 - 328 10*3/ ?L. The reference r meredith was not used to interpret this result as normal/abnormal . MPV (test code = 10.3 fL 9.8-13.0 22525-8) NRBC/100 WBC (test See_Comment [Automat ed code = 4503525729) message] The system which generated this result transmitted reference range : 0.0 - 10.0 /100 WBCs. The refer ence range was not u sed to interpret th is result as normal/abnormal . NRBC x10^3 (test code <0.01 See_Comment [Auto mated = 9781191070) message] The s [employer] which generated this result transmitted reference range : 10*3/?L. The reference range was not used to interpret this result as normal/abnormal . GRAN MAT (NEUT) % 60.6 % (test code = 770-8) IMM GRAN % (test code 0.30 % = 0168005195) LYMPH % (test code = 29.1 % 736-9) MONO % (test code = 8.8 % 5905-5) EOS % (test code = 0.6 % 713-8) BASO % (test code = 0.6 % 706-2) GRAN MAT x10^3(ANC) 4.08 10*3/uL 1.99-6.95 (test code = 0610259705) IMM GRAN x10^3 (test <0.03 0.00-0.06 code = 6673249711) LYMPH x10^3 (test code 1.96 10*3/uL 1.09-3.23 = 731-0) MONO x10^3 (test code 0.59 10*3/uL 0.36-1.02 = 742-7) EOS x10^3 (test code = 0.04 10*3/uL 0.06-0.53 L 711-2) BASO x10^3 (test code 0.04 10*3/uL 0.01-0.09 = 704-7) Lab Interpretation Abnormal (test code = 39000-8) [facility] GROUP [id number] 00:24:00 Test Item Value Reference Range Interpretation Comments POCT GP A STREP (test code = Negative Negative - Negative 54025-6) Lab Interpretation (test code = Normal 16476-0) [facility]AL[facility]IN2021-[facility]-13 11:38:43 Test Item Value Reference Range Interpretation Comments PALB (test code = 47246-7) 25.2 mg/dL 18.0-45.0 Lab Interpretation (test code = Normal 87868-2) [facility] (NA, K, CL, CO2, GLUCOSE, BUN, CREATININE, CA)2021-08-05 11:30:59 Test Item Value Reference Range Interpretation Comments NA (test code = 140 mmol/L 135-145 5755088471) K (test code = 4.2 mmol/L 3.5-5.0 0333461962) CL (test code = 110 mmol/L 98-108 H 2019173525) CO2 TOTAL (test code = 27 mmol/L 23-31 1625237202) AGAP (test code = 2-16 8030758701) BUN (test code = 9 mg/dL 7-23 4531946128) GLUCOSE (test code = 86 mg/dL 70-110 0573583265) CREATININE (test code = 1.51 mg/dL 0.60-1.25 H 4915376329) CALCIUM (test code = 8.5 mg/dL 8.6-10.6 L 6854380406) eGFR (test code = mL/min/1.73m2 2921442212) GILBERTO (test code = GILBERTO) Association of [...] tests). Lab Interpretation Abnormal (test code = 91816-4) [facility]2021-12-13 11:30:59 Test Item Value Reference Range Interpretation Comments MAGNESIUM (test code = 4785673206) 2.0 mg/dL 1.7-2.4 Lab Interpretation (test code = Normal 11429-0) [facility]2021[facility] 11:30:59 Test Item Value Reference Range Interpretation Comments PHOSPHORUS (test code = 0937490696) 5.1 mg/dL 2.5-5.0 H Lab Interpretation (test code = Abnormal 94689-8) [facility] 11:30:59 Test Item Value Reference Range Interpretation Comments ALBUMIN (test code = 8254856944) 3.1 g/dL 3.5-5.0 L Lab Interpretation (test code = Abnormal 26099-3) [facility] WITH [id number] 11:05:58 Test Item Value Reference Range Interpretation Comments WBC (test code = See_Comment L [Automated 0890-2) message] The sy stem which [...] RDW-SD (test code = 47.5 fL 38.5-51.6 51465-0) RDW-CV (test code = 14.0 % 12.1-15.4 788-0) PLT (test code = See_Comment [Automated 777-3) message] The sy stem which generated this result transmitted reference range : 150 - 328 10*3/ ?L. The reference r meredith was not used to interpret this result as normal/abnormal . MPV (test code = 9.5 fL 9.8-13.0 L 55618-7) NRBC/100 WBC (test See_Comment [Automat ed code = 1921864493) message] The system which generated this result transmitted reference range : 0.0 - 10.0 /100 WBCs. The refer ence range was not u sed to interpret th is result as normal/abnormal . NRBC x10^3 (test code <0.01 See_Comment [Auto mated = 9960748473) message] The s ystem which generated this result transmitted reference range : 10*3/?L. The reference range was not used to interpret this result as normal/abnormal . GRAN MAT (NEUT) % 52.5 % (test code = 770-8) IMM GRAN % (test code 0.30 % = 3513160598) LYMPH % (test code = 31.1 % 736-9) MONO % (test code = 11.7 % 5905-5) EOS % (test code = 3.9 % 713-8) BASO % (test code = 0.5 % 706-2) GRAN MAT x10^3(ANC) 2.03 10*3/uL 1.99-6.95 (test code = 9761178959) IMM GRAN x10^3 (test <0.03 0.00-0.06 code = 7995111539) LYMPH x10^3 (test code 1.20 10*3/uL 1.09-3.23 = 731-0) MONO x10^3 (test code 0.45 10*3/uL 0.36-1.02 = 742-7) EOS x10^3 (test code = 0.15 10*3/uL 0.06-0.53 711-2) BASO x10^3 (test code <0.03 0.01-0.09 = 704-7) Lab Interpretation Abnormal (test code = 66565-9) [facility] WITH [id number] 12:30:17 Test Item Value Reference Range Interpretation [...] RDW-SD (test code = 49.2 fL 38.5-51.6 87691-3) RDW-CV (test code = 14.3 % 12.1-15.4 788-0) PLT (test code = See_Comment [Automated 777-3) message] The sy stem which generated this result transmitted reference range : 150 - 328 10*3/ ?L. The reference r meredith was not used to interpret this result as normal/abnormal . MPV (test code = 9.2 fL 9.8-13.0 L 79827-9) NRBC/100 WBC (test See_Comment [Automat ed code = 4254061783) message] The system which generated this result transmitted reference range : 0.0 - 10.0 /100 WBCs. The refer ence range was not u sed to interpret th is result as normal/abnormal . NRBC x10^3 (test code <0.01 See_Comment [Auto mated = 2905190168) message] The s ystem which generated this result transmitted reference range : 10*3/?L. The reference range was not used to interpret this result as normal/abnormal . GRAN MAT (NEUT) % 47.2 % (test code = 770-8) IMM GRAN % (test code 0.30 % = 4929831991) LYMPH % (test code = 36.0 % 736-9) MONO % (test code = 12.6 % 5905-5) EOS % (test code = 3.4 % 713-8) BASO % (test code = 0.5 % 706-2) GRAN MAT x10^3(ANC) 1.80 10*3/uL 1.99-6.95 L (test code = 8067683555) IMM GRAN x10^3 (test <0.03 0.00-0.06 code = 7330647619) LYMPH x10^3 (test code 1.37 10*3/uL 1.09-3.23 = 731-0) MONO x10^3 (test code 0.48 10*3/uL 0.36-1.02 = 742-7) EOS x10^3 (test code = 0.13 10*3/uL 0.06-0.53 711-2) BASO x10^3 (test code <0.03 0.01-0.09 = 704-7) Lab Interpretation Abnormal (test code = 00580-9) [facility] METABOLIC PANEL (NA, K, CL, CO2, GLUCOSE, BUN, CREATININE, CA)2021-08-04 12:17:48 Test Item Value Reference Range Interpretation Comments NA (test code = 139 mmol/L 135-145 1137966654) K (test code = 4.3 mmol/L 3.5-5.0 9490124197) CL (test code = 110 mmol/L 98-108 H 6830049988) CO2 TOTAL (test code = 26 mmol/L 23-31 1403132477) AGAP (test code = 2-16 1038845835) BUN (test code = 8 mg/dL 7-23 3390151180) GLUCOSE (test code = 87 mg/dL 70-110 2088714550) CREATININE (test code = 1.50 mg/dL 0.60-1.25 H 6260766389) CALCIUM (test code = 8.4 mg/dL 8.6-10.6 L 8007661743) eGFR (test code = mL/min/1.73m2 0007178500) GILBERTO (test code = GILBERTO) Association of [...] tests). Lab Interpretation Abnormal (test code = 08603-2) [facility] 12:17:48 Test Item Value Reference Range Interpretation Comments MAGNESIUM (test code = 8344357288) 1.9 mg/dL 1.7-2.4 Lab Interpretation (test code = Normal 40961-7) [facility] 12:17:48 Test Item Value Reference Range Interpretation Comments PHOSPHORUS (test code = 6445379602) 4.6 mg/dL 2.5-5.0 Lab Interpretation (test code = Normal 33775-1) [facility] WITH [id number] 11:23:38 Test Item Value Reference Range Interpretation [...] RDW-SD (test code = 47.8 fL 38.5-51.6 23733-7) RDW-CV (test code = 14.1 % 12.1-15.4 788-0) PLT (test code = See_Comment [Automated 777-3) message] The sy stem which generated this result transmitted reference range : 150 - 328 10*3/ ?L. The reference r meredith was not used to interpret this result as normal/abnormal . MPV (test code = 9.3 fL 9.8-13.0 L 14152-1) NRBC/100 WBC (test See_Comment [Automat ed code = 6537050323) message] The system which generated this result transmitted reference range : 0.0 - 10.0 /100 WBCs. The refer ence range was not u sed to interpret th is result as normal/abnormal . NRBC x10^3 (test code <0.01 See_Comment [Auto mated = 0436368360) message] The s ystem which generated this result transmitted reference range : 10*3/?L. The reference range was not used to interpret this result as normal/abnormal . GRAN MAT (NEUT) % 49.3 % (test code = 770-8) IMM GRAN % (test code 0.30 % = 9880484228) LYMPH % (test code = 34.6 % 736-9) MONO % (test code = 12.0 % 5905-5) EOS % (test code = 3.3 % 713-8) BASO % (test code = 0.5 % 706-2) GRAN MAT x10^3(ANC) 1.97 10*3/uL 1.99-6.95 L (test code = 2531420953) IMM GRAN x10^3 (test <0.03 0.00-0.06 code = 3187730964) LYMPH x10^3 (test code 1.38 10*3/uL 1.09-3.23 = 731-0) MONO x10^3 (test code 0.48 10*3/uL 0.36-1.02 = 742-7) EOS x10^3 (test code = 0.13 10*3/uL 0.06-0.53 711-2) BASO x10^3 (test code <0.03 0.01-0.09 = 704-7) Lab Interpretation Abnormal (test code = 16956-2) [facility] METABOLIC PANEL (NA, K, CL, CO2, GLUCOSE, BUN, CREATININE, CA)2021-08-03 11:18:55 Test Item Value Reference Range Interpretation Comments NA (test code = 139 mmol/L 135-145 8933814219) K (test code = 4.1 mmol/L 3.5-5.0 2791068773) CL (test code = 110 mmol/L 98-108 H 1226819024) CO2 TOTAL (test code = 27 mmol/L 23-31 5138332298) AGAP (test code = 2-16 9206083657) BUN (test code = 8 mg/dL 7-23 5829216052) GLUCOSE (test code = 93 mg/dL 70-110 2392541166) CREATININE (test code = 1.39 mg/dL 0.60-1.25 H 5610913446) CALCIUM (test code = 8.1 mg/dL 8.6-10.6 L 0345712354) eGFR (test code = mL/min/1.73m2 4348200926) GILBERTO (test code = GILBERTO) Association of [...] tests). Lab Interpretation Abnormal (test code = 34248-4) [facility] 11:18:55 Test Item Value Reference Range Interpretation Comments MAGNESIUM (test code = 7152063611) 2.0 mg/dL 1.7-2.4 Lab Interpretation (test code = Normal 59995-8) [facility] Test Item Value Reference Range Interpretation Comments PHOSPHORUS (test code = 2096201434) 3.8 mg/dL 2.5-5.0 Lab Interpretation (test code = Normal 20039-9) [facility] (NA, K, CL, CO2, GLUCOSE, BUN, CREATININE, CA)2021-08-02 14:06:51 Test Item Value Reference Range Interpretation Comments NA (test code = 137 mmol/L 135-145 [id number]) K (test code = 4.4 mmol/L 3.5-5.0 6556865261) CL (test code = 108 mmol/L 98-108 9387290208) CO2 TOTAL (test code = 24 mmol/L 23-31 3776818535) AGAP (test code = 2-16 8867116395) BUN (test code = 10 mg/dL 7-23 2076361667) GLUCOSE (test code = 83 mg/dL 70-110 8081688404) CREATININE (test code = 1.48 mg/dL 0.60-1.25 H 2393281808) CALCIUM (test code = 8.4 mg/dL 8.6-10.6 L 3022581061) eGFR (test code = mL/min/1.73m2 4671766952) GILBERTO (test code = GILBERTO) Association of [...] tests). Lab Interpretation Abnormal (test code = 72928-9) [facility] 14:[facility]:51 Test Item Value Reference Range Interpretation Comments MAGNESIUM (test code = 3667114623) 2.1 mg/dL 1.7-2.4 Lab Interpretation (test code = Normal 72301-8) [facility] 14:[facility]:51 Test Item Value Reference Range Interpretation Comments PHOSPHORUS (test code = 2096379420) 4.6 mg/dL 2.5-5.0 Lab Interpretation (test code = Normal 83151-7) [facility] [id number] 12:30:05 Test Item Value Reference Range Interpretation [...] RDW-SD (test code = 48.6 fL 38.5-51.6 25840-6) RDW-CV (test code = 14.3 % 12.1-15.4 788-0) PLT (test code = See_Comment [Automated 777-3) message] The sy stem which generated this result transmitted reference range : 150 - 328 10*3/ ?L. The reference r meredith was not used to interpret this result as normal/abnormal . MPV (test code = 10.0 fL 9.8-13.0 38015-0) NRBC/100 WBC (test See_Comment [Automat ed code = 0106716588) message] The system which generated this result transmitted reference range : 0.0 - 10.0 /100 WBCs. The refer ence range was not u sed to interpret th is result as normal/abnormal . NRBC x10^3 (test code <0.01 See_Comment [Auto mated = 6690264011) message] The s ystem which generated this result transmitted reference range : 10*3/?L. The reference range was not used to interpret this result as normal/abnormal . GRAN MAT (NEUT) % 51.9 % (test code = 770-8) IMM GRAN % (test code 0.60 % = 7946666432) LYMPH % (test code = 32.7 % 736-9) MONO % (test code = 11.3 % 5905-5) EOS % (test code = 3.2 % 713-8) BASO % (test code = 0.3 % 706-2) GRAN MAT x10^3(ANC) 1.80 10*3/uL 1.99-6.95 L (test code = 4432645336) IMM GRAN x10^3 (test <0.03 0.00-0.06 code = 5371341015) LYMPH x10^3 (test code 1.13 10*3/uL 1.09-3.23 = 731-0) MONO x10^3 (test code 0.39 10*3/uL 0.36-1.02 = 742-7) EOS x10^3 (test code = 0.11 10*3/uL 0.06-0.53 711-2) BASO x10^3 (test code <0.03 0.01-0.09 = 704-7) Lab Interpretation Abnormal (test code = 45862-2) [facility] WITH [id number] 10:44:18 Test Item Value Reference Range Interpretation [...] RDW-SD (test code = 48.0 fL 38.5-51.6 69671-4) RDW-CV (test code = 14.1 % 12.1-15.4 788-0) PLT (test code = See_Comment [Automated 777-3) message] The sy stem which generated this result transmitted reference range : 150 - 328 10*3/ ?L. The reference r meredith was not used to interpret this result as normal/abnormal . MPV (test code = 9.5 fL 9.8-13.0 L 39419-5) NRBC/100 WBC (test See_Comment [Automat ed code = 2570463324) message] The system which generated this result transmitted reference range : 0.0 - 10.0 /100 WBCs. The refer ence range was not u sed to interpret th is result as normal/abnormal . NRBC x10^3 (test code <0.01 See_Comment [Auto mated = 5441781156) message] The s ystem which generated this result transmitted reference range : 10*3/?L. The reference range was not used to interpret this result as normal/abnormal . GRAN MAT (NEUT) % 50.8 % (test code = 770-8) IMM GRAN % (test code 0.30 % = 6711061237) LYMPH % (test code = 34.6 % 736-9) MONO % (test code = 10.3 % 5905-5) EOS % (test code = 3.7 % 713-8) BASO % (test code = 0.3 % 706-2) GRAN MAT x10^3(ANC) 1.78 10*3/uL 1.99-6.95 L (test code = 6452316390) IMM GRAN x10^3 (test <0.03 0.00-0.06 code = 6366352665) LYMPH x10^3 (test code 1.21 10*3/uL 1.09-3.23 = 731-0) MONO x10^3 (test code 0.36 10*3/uL 0.36-1.02 = 742-7) EOS x10^3 (test code = 0.13 10*3/uL 0.06-0.53 711-2) BASO x10^3 (test code <0.03 0.01-0.09 = 704-7) Lab Interpretation Abnormal (test code = 23789-3) [facility] METABOLIC PANEL (NA, K, CL, CO2, GLUCOSE, BUN, CREATININE, CA)2021-08-01 10:25:17 Test Item Value Reference Range Interpretation Comments NA (test code = 138 mmol/L 135-145 5425756576) K (test code = 4.1 mmol/L 3.5-5.0 2519421613) CL (test code = 105 mmol/L 98-108 9143353823) CO2 TOTAL (test code = 28 mmol/L 23-31 4600661430) AGAP (test code = 2-16 8711736174) BUN (test code = 13 mg/dL 7-23 9008125689) GLUCOSE (test code = 86 mg/dL 70-110 0562609098) CREATININE (test code = 1.46 mg/dL 0.60-1.25 H 0465658150) CALCIUM (test code = 8.7 mg/dL 8.6-10.6 0564952688) eGFR (test code = mL/min/1.73m2 8261430512) GILBERTO (test code = GILBERTO) Association of [...] tests). Lab Interpretation Abnormal (test code = 92692-2) [facility] Test Item Value Reference Range Interpretation Comments MAGNESIUM (test code = 4246168784) 1.6 mg/dL 1.7-2.4 L Lab Interpretation (test code = Abnormal 57299-8) [facility] 10:25:17 Test Item Value Reference Range Interpretation Comments PHOSPHORUS (test code = 3069877729) 4.1 mg/dL 2.5-5.0 Lab Interpretation (test code = Normal 61501-9) [facility] 16:18:34 Test Item Value Reference Range Interpretation Comments PALB (test code = 96551-6) 24.3 mg/dL 18.0-45.0 Lab Interpretation (test code = Normal 50825-2) [facility] [id number] 11:20:19 Test Item Value Reference Range Interpretation [...] RDW-SD (test code = 49.6 fL 38.5-51.6 70975-0) RDW-CV (test code = 14.6 % 12.1-15.4 788-0) PLT (test code = See_Comment [Automated 777-3) message] The sy stem which generated this result transmitted reference range : 150 - 328 10*3/ ?L. The reference r meredith was not used to interpret this result as normal/abnormal . MPV (test code = 9.6 fL 9.8-13.0 L 90063-2) NRBC/100 WBC (test See_Comment [Automat ed code = 0781333180) message] The system which generated this result transmitted reference range : 0.0 - 10.0 /100 WBCs. The refer ence range was not u sed to interpret th is result as normal/abnormal . NRBC x10^3 (test code <0.01 See_Comment [Auto mated = 6697148559) message] The s ystem which generated this result transmitted reference range : 10*3/?L. The reference range was not used to interpret this result as normal/abnormal . GRAN MAT (NEUT) % 49.1 % (test code = 770-8) IMM GRAN % (test code 0.30 % = 2683443912) LYMPH % (test code = 36.0 % 736-9) MONO % (test code = 10.6 % 5905-5) EOS % (test code = 3.4 % 713-8) BASO % (test code = 0.6 % 706-2) GRAN MAT x10^3(ANC) 1.76 10*3/uL 1.99-6.95 L (test code = 5918025826) IMM GRAN x10^3 (test <0.03 0.00-0.06 code = 6741530581) LYMPH x10^3 (test code 1.29 10*3/uL 1.09-3.23 = 731-0) MONO x10^3 (test code 0.38 10*3/uL 0.36-1.02 = 742-7) EOS x10^3 (test code = 0.12 10*3/uL 0.06-0.53 711-2) BASO x10^3 (test code <0.03 0.01-0.09 = 704-7) Lab Interpretation Abnormal (test code = 69755-0) [facility] METABOLIC PANEL (NA, K, CL, CO2, GLUCOSE, BUN, CREATININE, CA)2021-07-31 11:11:17 Test Item Value Reference Range Interpretation Comments NA (test code = 135 mmol/L 135-145 3611975396) K (test code = 3.8 mmol/L 3.5-5.0 9636917775) CL (test code = 108 mmol/L 98-108 4888646491) CO2 TOTAL (test code = 24 mmol/L 23-31 2328694516) AGAP (test code = 2-16 8199833467) BUN (test code = 13 mg/dL 7-23 0132586459) GLUCOSE (test code = 88 mg/dL 70-110 5650791928) CREATININE (test code = 1.32 mg/dL 0.60-1.25 H 1410468768) CALCIUM (test code = 8.4 mg/dL 8.6-10.6 L 8298354646) eGFR (test code = mL/min/1.73m2 4432421590) GILBERTO (test code = GILBERTO) Association of [...] tests). Lab Interpretation Abnormal (test code = 95498-9) [facility] 11:11:17 Test Item Value Reference Range Interpretation Comments MAGNESIUM (test code = 4608466955) 1.8 mg/dL 1.7-2.4 Lab Interpretation (test code = Normal 99289-2) [facility] 11:11:17 Test Item Value Reference Range Interpretation Comments PHOSPHORUS (test code = 3260851822) 4.0 mg/dL 2.5-5.0 Lab Interpretation (test code = Normal 49433-2) [facility] (80329[facility]2021-07-30 03:46:32 Test Item Value Reference Range Interpretation Comments NA (test code = 132 mmol/L 135-145 L 5823864903) K (test code = 4.4 mmol/L 3.5-5.0 7211879401) CL (test code = 102 mmol/L 98-108 0943732909) CO2 TOTAL (test code = 24 mmol/L 23-31 6878361789) AGAP (test code = 2-16 9720637155) BUN (test code = 21 mg/dL 7-23 3381783742) GLUCOSE (test code = 95 mg/dL 70-110 6171180885) CREATININE (test code = 1.76 mg/dL 0.60-1.25 H 4533255375) TOTAL BILI (test code = 0.7 mg/dL 0.1-1.7 5677339838) CALCIUM (test code = 8.8 mg/dL 8.6-10.6 4759230162) T PROTEIN (test code = 6.0 g/dL 6.3-8.2 L 6657746701) ALBUMIN (test code = 3.8 g/dL 3.5-5.0 9773219787) ALK PHOS (test code = 67 U/L 34-122 0703595231) ALTv (test code = 47 U/L 5-50 1742-6) AST(SGOT) (test code = 39 U/L 13-40 1849057339) eGFR (test code = mL/min/1.73m2 2476943241) GILBERTO (test code = GILBERTO) Association of [...] tests). Lab Interpretation Abnormal (test code = 09775-8) [facility] 03:19:26 Test Item Value Reference Range Interpretation Comments LIPASE (test code = 0901019317) 58 U/L 0-220 Lab Interpretation (test code = Normal 97247-4) [facility] [id number] 03:07:20 Test Item Value Reference Range Interpretation [...] RDW-SD (test code = 47.4 fL 38.5-51.6 59214-2) RDW-CV (test code = 14.2 % 12.1-15.4 788-0) PLT (test code = See_Comment [Automated 777-3) message] The sy stem which generated this result transmitted reference range : 150 - 328 10*3/ ?L. The reference r meredith was not used to interpret this result as normal/abnormal . MPV (test code = 9.9 fL 9.8-13.0 15753-5) NRBC/100 WBC (test See_Comment [Automat ed code = 3363372597) message] The system which generated this result transmitted reference range : 0.0 - 10.0 /100 WBCs. The refer ence range was not u sed to interpret th is result as normal/abnormal . NRBC x10^3 (test code <0.01 See_Comment [Auto mated = 9252601910) message] The s ystem which generated this result transmitted reference range : 10*3/?L. The reference range was not used to interpret this result as normal/abnormal . GRAN MAT (NEUT) % 61.1 % (test code = 770-8) IMM GRAN % (test code 0.20 % = 9643723464) LYMPH % (test code = 24.4 % 736-9) MONO % (test code = 11.8 % 5905-5) EOS % (test code = 2.2 % 713-8) BASO % (test code = 0.3 % 706-2) GRAN MAT x10^3(ANC) 3.98 10*3/uL 1.99-6.95 (test code = 0418842242) IMM GRAN x10^3 (test <0.03 0.00-0.06 code = 7373186132) LYMPH x10^3 (test code 1.59 10*3/uL 1.09-3.23 = 731-0) MONO x10^3 (test code 0.77 10*3/uL 0.36-1.02 = 742-7) EOS x10^3 (test code = 0.14 10*3/uL 0.06-0.53 711-2) BASO x10^3 (test code <0.03 0.01-0.09 = 704-7) Lab Interpretation Abnormal (test code = 06351-7) [facility] Whole [id number] 03:00:47 Test Item Value Reference Range Interpretation Comments LACTIC ACID (test code = 1.45 mmol/L 0.50-2.20 QUE S 4742301925) Lab Interpretation (test code = Normal 52036-1) [facility] [id number] 11:51:00 Test Item Value Reference Range Interpretation [...] Units/L 50.0-136.0 N code = ALKP) PROTHROMBIN [id number] 11:41:00 Test Item Value Reference Range Interpretation Comments PROTHROMBIN TIME 10.9 SECONDS 9.9-12.8 N PATIENT (test code = PTP) INTERNATIONAL NORMAL 0.9 0.89-1.14 N THE INR IS TO BE USED RATIO (test code = ONLY FOR MONITORING INR) ORAL ANTICOAGULANTTH ERAPY. THE FOLLOWING A RE SUGGESTED RANGE S FROM [facility]YSICI[facility]:ROOPA CATION INR VALUEPROPHY [...] D ANTIBODIES 2.5 - 3.5 CBC W/AUTO [id number] 11:36:00 Test Item Value Reference Range Interpretation [...] NA (test code = 137 mmol/L 135-145 7912720491) K (test code = 4.2 mmol/L 3.5-5.0 8473046381) CL (test code = 109 mmol/L 98-108 H 5826554148) CO2 TOTAL (test code = 25 mmol/L 23-31 3724276752) AGAP (test code = 2-16 9777328513) BUN (test code = 11 mg/dL 7-23 4471677701) GLUCOSE (test code = 83 mg/dL 70-110 6054719825) CREATININE (test code = 1.40 mg/dL 0.60-1.25 H 1807849708) CALCIUM (test code = 8.6 mg/dL 8.6-10.6 6345343343) eGFR (test code = mL/min/1.73m2 9665349067) GILBERTO (test code = GILBERTO) Association of [...] tests). Lab Interpretation Abnormal (test code = 75628-3) [facility] 13:15:26 Test Item Value Reference Range Interpretation Comments MAGNESIUM (test code = 8163943304) 1.6 mg/dL 1.7-2.4 L Lab Interpretation (test code = Abnormal 29420-0) [facility] 13:15:26 Test Item Value Reference Range Interpretation Comments PHOSPHORUS (test code = 9926173367) 3.5 mg/dL 2.5-5.0 Lab Interpretation (test code = Normal 96798-0) [facility] WITH [id number] 12:50:41 Test Item Value Reference Range Interpretation Comments WBC (test code = See_Comment [Automated 8306-2) message] The sy stem which generated this result transmitted reference range : 4.20 - 10.70 10*3/?L. The reference range was not used to interpret this result as normal/abnormal . RBC (test code = See_Comment L [Automated 788-3) message] The sy stem which generated this [...] RDW-SD (test code = 46.7 fL 38.5-51.6 65764-3) RDW-CV (test code = 14.3 % 12.1-15.4 788-0) PLT (test code = See_Comment [Automated 777-3) message] The sy stem which generated this result transmitted reference range : 150 - 328 10*3/ ?L. The reference r meredith was not used to interpret this result as normal/abnormal . MPV (test code = 9.6 fL 9.8-13.0 L 52347-5) NRBC/100 WBC (test See_Comment [Automat ed code = 6075668029) message] The system which generated this result transmitted reference range : 0.0 - 10.0 /100 WBCs. The refer ence range was not u sed to interpret th is result as normal/abnormal . NRBC x10^3 (test code <0.01 See_Comment [Auto mated = 8440640929) message] The s ystem which generated this result transmitted reference range : 10*3/?L. The reference range was not used to interpret this result as normal/abnormal . GRAN MAT (NEUT) % 52.7 % (test code = 770-8) IMM GRAN % (test code 0.40 % = 3757427872) LYMPH % (test code = 33.7 % 736-9) MONO % (test code = 10.4 % 5905-5) EOS % (test code = 2.4 % 713-8) BASO % (test code = 0.4 % 706-2) GRAN MAT x10^3(ANC) 2.65 10*3/uL 1.99-6.95 (test code = 4043753954) IMM GRAN x10^3 (test <0.03 0.00-0.06 code = 8504820588) LYMPH x10^3 (test code 1.69 10*3/uL 1.09-3.23 = 731-0) MONO x10^3 (test code 0.52 10*3/uL 0.36-1.02 = 742-7) EOS x10^3 (test code = 0.12 10*3/uL 0.06-0.53 711-2) BASO x10^3 (test code <0.03 0.01-0.09 = 704-7) Lab Interpretation Abnormal (test code = 03563-6) [facility] 12:35:59 Test Item Value Reference Range Interpretation Comments MAGNESIUM (test code = 8352745517) 1.6 mg/dL 1.7-2.4 L Lab Interpretation (test code = Abnormal 15509-7) [facility] 12:35:59 Test Item Value Reference Range Interpretation Comments PHOSPHORUS (test code = 7249717573) 4.0 mg/dL 2.5-5.0 Lab Interpretation (test code = Normal 56881-4) [facility] (NA, K, CL, CO2, GLUCOSE, BUN, CREATININE, CA)2021-07-25 12:09:12 Test Item Value Reference Range Interpretation Comments NA (test code = 139 mmol/L 135-145 6945429151) K (test code = 4.1 mmol/L 3.5-5.0 2595734620) CL (test code = 111 mmol/L 98-108 H 1058843401) CO2 TOTAL (test code = 25 mmol/L 23-31 3949431514) AGAP (test code = 2-16 6969178283) BUN (test code = 13 mg/dL 7-23 6233199632) GLUCOSE (test code = 86 mg/dL 70-110 4768063991) CREATININE (test code = 1.43 mg/dL 0.60-1.25 H 0437889291) CALCIUM (test code = 8.4 mg/dL 8.6-10.6 L 0601251372) eGFR (test code = mL/min/1.73m2 9400046008) GILBERTO (test code = GILBERTO) Association of [...] tests). Lab Interpretation Abnormal (test code = 98468-5) [facility] WITH [id number] 11:44:33 Test Item Value Reference Range Interpretation Comments WBC (test code = See_Comment [Automated 3652-2) message] The sy stem which generated this [...] RDW-SD (test code = 48.9 fL 38.5-51.6 06218-7) RDW-CV (test code = 14.3 % 12.1-15.4 788-0) PLT (test code = See_Comment [Automated 777-3) message] The sy stem which generated this result transmitted reference range : 150 - 328 10*3/ ?L. The reference r meredith was not used to interpret this result as normal/abnormal . MPV (test code = 9.6 fL 9.8-13.0 L 67922-7) NRBC/100 WBC (test See_Comment [Automat ed code = 7104164403) message] The system which generated this result transmitted reference range : 0.0 - 10.0 /100 WBCs. The refer ence range was not u sed to interpret th is result as normal/abnormal . NRBC x10^3 (test code <0.01 See_Comment [Auto mated = 0533147608) message] The s ystem which generated this result transmitted reference range : 10*3/?L. The reference range was not used to interpret this result as normal/abnormal . GRAN MAT (NEUT) % 50.0 % (test code = 770-8) IMM GRAN % (test code 0.20 % = 7784982648) LYMPH % (test code = 36.7 % 736-9) MONO % (test code = 10.0 % 5905-5) EOS % (test code = 2.6 % 713-8) BASO % (test code = 0.5 % 706-2) GRAN MAT x10^3(ANC) 2.11 10*3/uL 1.99-6.95 (test code = 5000768840) IMM GRAN x10^3 (test <0.03 0.00-0.06 code = 5379354017) LYMPH x10^3 (test code 1.55 10*3/uL 1.09-3.23 = 731-0) MONO x10^3 (test code 0.42 10*3/uL 0.36-1.02 = 742-7) EOS x10^3 (test code = 0.11 10*3/uL 0.06-0.53 711-2) BASO x10^3 (test code <0.03 0.01-0.09 = 704-7) Lab Interpretation Abnormal (test code = 16767-9) [facility] WITH [id number] 04:23:56 Test Item Value Reference Range Interpretation [...] RDW-SD (test code = 49.0 fL 38.5-51.6 20740-0) RDW-CV (test code = 14.4 % 12.1-15.4 788-0) PLT (test code = See_Comment [Automated 777-3) message] The sy stem which generated this result transmitted reference range : 150 - 328 10*3/ ?L. The reference r meredith was not used to interpret this result as normal/abnormal . MPV (test code = 9.5 fL 9.8-13.0 L 73848-1) NRBC/100 WBC (test See_Comment [Automat ed code = 9530408887) message] The system which generated this result transmitted reference range : 0.0 - 10.0 /100 WBCs. The refer ence range was not u sed to interpret th is result as normal/abnormal . NRBC x10^3 (test code <0.01 See_Comment [Auto mated = 2969000312) message] The s ystem which generated this result transmitted reference range : 10*3/?L. The reference range was not used to interpret this result as normal/abnormal . GRAN MAT (NEUT) % 49.9 % (test code = 770-8) IMM GRAN % (test code 0.20 % = 2362496932) LYMPH % (test code = 35.2 % 736-9) MONO % (test code = 11.7 % 5905-5) EOS % (test code = 2.4 % 713-8) BASO % (test code = 0.6 % 706-2) GRAN MAT x10^3(ANC) 2.31 10*3/uL 1.99-6.95 (test code = 7375736464) IMM GRAN x10^3 (test <0.03 0.00-0.06 code = 3630957931) LYMPH x10^3 (test code 1.63 10*3/uL 1.09-3.23 = 731-0) MONO x10^3 (test code 0.54 10*3/uL 0.36-1.02 = 742-7) EOS x10^3 (test code = 0.11 10*3/uL 0.06-0.53 711-2) BASO x10^3 (test code 0.03 10*3/uL 0.01-0.09 = 704-7) Lab Interpretation Abnormal (test code = 63302-9) [facility] (NA, K, CL, CO2, GLUCOSE, BUN, CREATININE, CA)2021-07-24 12:55:24 Test Item Value Reference Range Interpretation Comments NA (test code = 135 mmol/L 135-145 6387636400) K (test code = 4.0 mmol/L 3.5-5.0 0361918908) CL (test code = 109 mmol/L 98-108 H 0017689133) CO2 TOTAL (test code = 22 mmol/L 23-31 L 1451132280) AGAP (test code = 2-16 5974330284) BUN (test code = 12 mg/dL 7-23 4551530115) GLUCOSE (test code = 102 mg/dL 70-110 7434609470) CREATININE (test code = 1.27 mg/dL 0.60-1.25 H 8016610399) CALCIUM (test code = 8.6 mg/dL 8.6-10.6 2705997457) eGFR (test code = mL/min/1.73m2 4133216476) GILBERTO (test code = GILBERTO) Association of [...] tests). Lab Interpretation Abnormal (test code = 69963-0) [facility] 12:55:24 Test Item Value Reference Range Interpretation Comments MAGNESIUM (test code = 6296875412) 1.7 mg/dL 1.7-2.4 Lab Interpretation (test code = Normal 37537-2) [facility] 12:55:24 Test Item Value Reference Range Interpretation Comments PHOSPHORUS (test code = 0073965499) 3.1 mg/dL 2.5-5.0 Lab Interpretation (test code = Normal 86251-2) [facility] Metabolic Panel (NA, K, CL, CO2, Glucose, BUN, Creatinine, CA)2021-07-23 13:27:55 Test Item Value Reference Range Interpretation Comments NA (test code = 134 mmol/L 135-145 L 3408960303) K (test code = 3.8 mmol/L 3.5-5.0 9919740472) CL (test code = 107 mmol/L 98-108 8895002714) CO2 TOTAL (test code = 21 mmol/L 23-31 L 3359323386) AGAP (test code = 2-16 9347858657) BUN (test code = 18 mg/dL 7-23 2356971617) GLUCOSE (test code = 120 mg/dL 70-110 H 9189033899) CREATININE (test code = 1.46 mg/dL 0.60-1.25 H 9581927086) CALCIUM (test code = 8.7 mg/dL 8.6-10.6 7324364836) eGFR (test code = mL/min/1.73m2 9008175215) GILBERTO (test code = GILBERTO) Association of [...] tests). Lab Interpretation Abnormal (test code = 07581-2) [facility] 13:27:55 Test Item Value Reference Range Interpretation Comments MAGNESIUM (test code = 5036903478) 1.9 mg/dL 1.7-2.4 Lab Interpretation (test code = Normal 71083-0) [facility] 13:27:55 Test Item Value Reference Range Interpretation Comments PHOSPHORUS (test code = 7147886935) 3.5 mg/dL 2.5-5.0 Lab Interpretation (test code = Normal 81401-5) [facility] [id number] 13:06:55 Test Item Value Reference Range Interpretation Comments WBC (test code = See_Comment [Automated 6690-2) message] The sy stem which generated this result transmitted reference range : 4.20 - 10.70 10*3/?L. The reference range was not used to interpret this result as normal/abnormal . RBC (test code = See_Comment L [Automated 589-8) message] The sy stem which generated this [...] RDW-SD (test code = 47.8 fL 38.5-51.6 31069-8) RDW-CV (test code = 14.4 % 12.1-15.4 788-0) PLT (test code = See_Comment [Automated 777-3) message] The sy stem which generated this result transmitted reference range : 150 - 328 10*3/ ?L. The reference r meredith was not used to interpret this result as normal/abnormal . MPV (test code = 9.4 fL 9.8-13.0 L 16421-8) NRBC/100 WBC (test See_Comment [Automat ed code = 5322447824) message] The system which generated this result transmitted reference range : 0.0 - 10.0 /100 WBCs. The refer ence range was not u sed to interpret th is result as normal/abnormal . NRBC x10^3 (test code <0.01 See_Comment [Auto mated = 4564782309) message] The s ystem which generated this result transmitted reference range : 10*3/?L. The reference range was not used to interpret this result as normal/abnormal . GRAN MAT (NEUT) % 54.7 % (test code = 770-8) IMM GRAN % (test code 0.40 % = [id number]) LYMPH % (test code = 33.3 % 736-9) MONO % (test code = 9.4 % 5905-5) EOS % (test code = 1.8 % 713-8) BASO % (test code = 0.4 % 706-2) GRAN MAT x10^3(ANC) 2.78 10*3/uL 1.99-6.95 (test code = [id number]) IMM GRAN x10^3 (test <0.03 0.00-0.06 code = [id number]) LYMPH x10^3 (test code 1.69 10*3/uL 1.09-3.23 = 731-0) MONO x10^3 (test code 0.48 10*3/uL 0.36-1.02 = 742-7) EOS x10^3 (test code = 0.09 10*3/uL 0.06-0.53 711-2) BASO x10^3 (test code <0.03 0.01-0.09 = 704-7) Lab Interpretation Abnormal (test code = 98919-1) [id number]00 Test Item Value Reference Range Interpretation [...] = MX#) 0.8 k/mm3 0.1-0.8 N GLUCOSE [id number] 06:12:00 Test Item Value Reference Range Interpretation Comments GLUCOSE BEDSIDE (test 129 MG/DL 70-110 H Perfor med by certified code = GLUBED) 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.] = LY#) 2.4 K/uL 1.0-3.8 N LIVER [id number] 16:14:00 Test Item Value Reference Range Interpretation Comments TOTAL PROTEIN (test code 7.5 GM/DL 5.0-8.0 N Per formed by = PROT) 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 [facility] ed Ctr ALBUMIN (test code = [...] 65 UNITS/L 25-125 N LYNDSEY) BASIC METABOLIC [id number] 16:07:00 Test Item Value Reference Range Interpretation [...] POCGLU) 96 MG/DL - XR CHEST 1 [id number] 00:00:00 [facility] DORA JOSEPH HOANG : 1970 Sex: MFAX: Sabi Urias MD [phone] [place]: [place] [address]: PRE Name: DORA JOSEPH HOANG Erazo FSED : 1970 Age/S: 51/M [address] Unit #: [id number] Loc: [place] [facility] [address] Phys: Sabi Urias MD Acct: [id number] Dis Date: Status: PRE ER PHONE #: Exam Date: 06/27/2021 1546 FAX #: Reason: Abdominal PainEXAMS: CPT CODE: [id number] XR CHEST 1 V 40022 PROCEDURE INFORMATION: Exam: XR Chest Exam date [...] diaphragm. No acute cardiopulmonary findings otherwise.. at 1551 Reported and signed by: Андрей Mar M.D. CC: Sabi Urias MD Technologist: Yecenia Carbajal RT(R)(CT) Trnscrd Date/Time/By: 06/27/2021 (1558) : By: [email or web address] Orig Print D/T: S: 06/27/2021 (1554) PAGE 1 Signed Report- CT ABD PELVIS W/PWIB4804-17-07 00:00:00 [facility] : 1970 Sex: MName: DORA JOSEPH FSED : 1970 Age/S: 51 / M [address] Unit #: [id number] Loc: [place] [address] Phys: Sabi Urias MD Acct: [id number] Dis Date: Status: REG ER PHONE #: Exam Date: 06/27/2021 4796 FAX #: Reason: pain in region of colostomy EXAMS: CPT CODE: [id number] CT ABD PELVIS W/CONT 93827 PROCEDURE INFORMATION: Exam: CT Abdomen And Pelvis [...] 1970 Age/S: 51 / M [address] Unit #: [id number] Loc: [place] [address] Phys: Sabi Urias MD Acct: [id number] Dis Date: Status: REG ER PHONE #: Exam Date: 06/27/2021 1622 FAX #: Reason: pain in region of colostomy EXAMS: CPT CODE: [id number] CT ABD PELVIS W/CONT 93855 <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 There is no [...] (test code = 133 mmol/L 135-145 L 8122256405) K (test code = 3.7 mmol/L 3.5-5.0 0471581822) CL (test code = 108 mmol/L 98-108 8897210681) CO2 TOTAL (test code = 20 mmol/L 23-31 L 7190463728) AGAP (test code = 2-16 0097455399) BUN (test code = 11 mg/dL 7-23 1582593657) GLUCOSE (test code = 82 mg/dL 70-110 1719015122) CREATININE (test code = 0.96 mg/dL 0.60-1.25 8975627953) CALCIUM (test code = 8.6 mg/dL 8.6-10.6 1696368229) eGFR (test code = mL/min/1.73m2 3891271728) GILBERTO (test code = GILBERTO) Association of [...] tests). Lab Interpretation Abnormal (test code = 42398-0) [facility] METABOLIC PANEL (NA, K, CL, CO2, GLUCOSE, BUN, CREATININE, CA)2021-06-02 11:45:25 Test Item Value Reference Range Interpretation Comments NA (test code = 133 mmol/L 135-145 L 1340427591) K (test code = 3.7 mmol/L 3.5-5.0 5557172716) CL (test code = 111 mmol/L 98-108 H 2643807164) CO2 TOTAL (test code = 17 mmol/L 23-31 L 7896527960) AGAP (test code = 2-16 0676429811) BUN (test code = 15 mg/dL 7-23 4669560407) GLUCOSE (test code = 88 mg/dL 70-110 0855958482) CREATININE (test code = 0.96 mg/dL 0.60-1.25 2565055261) CALCIUM (test code = 8.1 mg/dL 8.6-10.6 L 6785929863) eGFR (test code = mL/min/1.73m2 4173847126) GILBERTO (test code = GILBERTO) Association of [...] tests). Lab Interpretation Abnormal (test code = 06246-4) [facility] METABOLIC PANEL (NA, K, CL, CO2, GLUCOSE, BUN, CREATININE, CA)2021-06-01 17:06:47 Test Item Value Reference Range Interpretation Comments NA (test code = 131 mmol/L 135-145 L 9213944049) K (test code = 3.9 mmol/L 3.5-5.0 Slight 2886207838) hemolysis CL (test code = 108 mmol/L 98-108 0642637991) CO2 TOTAL (test code 15 mmol/L 23-31 L = 4344454696) AGAP (test code = 2-16 9058837013) BUN (test code = 26 mg/dL 7-23 H Slight 0288038002) hemolysis GLUCOSE (test code = 85 mg/dL 70-110 6586515543) CREATININE (test code 1.26 mg/dL 0.60-1.25 H = 4806434226) CALCIUM (test code = 8.1 mg/dL 8.6-10.6 L 7792012581) eGFR (test code = mL/min/1.73m2 2635675929) GILBERTO (test code = GILBERTO) Association of [...] tests). Lab Interpretation Abnormal (test code = 92879-9) [facility] Gjtas0371-61-61 05:45:35 Test Item Value Reference Range Interpretation Comments LACTIC ACID (test code = 0.67 mmol/L 0.50-2.20 1120803709) Lab Interpretation (test code = Normal 09439-5) [id number] 23:44:55 Test Item Value Reference Interpretation Comments Range TROPONIN I (test 0.004 ng/mL See_Comment [Automated code = 1684662361) message] The system which generated this result [...] biotin. Lab Interpretation Normal (test code = 36811-2) [facility] 23:33:28 Test Item Value Reference Range Interpretation Comments LIPASE (test code = 0772126873) 386 U/L 0-220 H Lab Interpretation (test code = Abnormal 57120-5) [facility] (90946)2021-05-31 23:33:28 Test Item Value Reference Range Interpretation Comments NA (test code = 128 mmol/L 135-145 L 6885154972) K (test code = 4.2 mmol/L 3.5-5.0 8269026077) CL (test code = 102 mmol/L 98-108 9550516766) CO2 TOTAL (test code = 13 mmol/L 23-31 L 6327621509) AGAP (test code = 2-16 8487460833) BUN (test code = 47 mg/dL 7-23 H 8279337462) GLUCOSE (test code = 106 mg/dL 70-110 2996024397) CREATININE (test code = 2.38 mg/dL 0.60-1.25 H 5999515836) TOTAL BILI (test code = 0.6 mg/dL 0.1-1.4 6532450728) CALCIUM (test code = 9.5 mg/dL 8.6-10.6 0699893592) T PROTEIN (test code = 7.3 g/dL 6.3-8.2 0096468329) ALBUMIN (test code = 4.6 g/dL 3.5-5.0 8669710207) ALK PHOS (test code = 110 U/L 34-122 1703963711) ALTv (test code = 29 U/L 5-50 1742-6) AST(SGOT) (test code = 33 U/L 13-40 9578911469) eGFR (test code = mL/min/1.73m2 4178163540) GILBERTO (test code = GILBERTO) Association of [...] tests). Lab Interpretation Abnormal (test code = 13775-1) [facility] WITH [id number] 22:57:06 Test Item Value Reference Range Interpretation [...] RDW-SD (test code = 43.2 fL 38.5-51.6 87434-6) RDW-CV (test code = 13.7 % 12.1-15.4 788-0) PLT (test code = See_Comment [Automated 777-3) message] The sy stem which generated this result transmitted reference range : 150 - 328 10*3/ ?L. The reference r meredith was not used to interpret this result as normal/abnormal . MPV (test code = 10.1 fL 9.8-13.0 06592-8) NRBC/100 WBC (test See_Comment [Automat ed code = 0305637532) message] The system which generated this result transmitted reference range : 0.0 - 10.0 /100 WBCs. The refer ence range was not u sed to interpret th is result as normal/abnormal . NRBC x10^3 (test code <0.01 See_Comment [Auto mated = 4785625789) message] The s ystem which generated this result transmitted reference range : 10*3/?L. The reference range was not used to interpret this result as normal/abnormal . GRAN MAT (NEUT) % 68.1 % (test code = 770-8) IMM GRAN % (test code 0.40 % = 0865885889) LYMPH % (test code = 21.9 % 736-9) MONO % (test code = 8.9 % 5905-5) EOS % (test code = 0.3 % 713-8) BASO % (test code = 0.4 % 706-2) GRAN MAT x10^3(ANC) 5.38 10*3/uL 1.99-6.95 (test code = 4187717544) IMM GRAN x10^3 (test 0.03 10*3/uL 0.00-0.06 code = 4751008929) LYMPH x10^3 (test code 1.73 10*3/uL 1.09-3.23 = 731-0) MONO x10^3 (test code 0.70 10*3/uL 0.36-1.02 = 742-7) EOS x10^3 (test code = <0.03 0.06-0.53 L 711-2) BASO x10^3 (test code 0.03 10*3/uL 0.01-0.09 = 704-7) Lab Interpretation Abnormal (test code = 41961-9) [facility] 09:49:03 Test Item Value Reference Range Interpretation Comments MAGNESIUM (test code = 7927085023) 2.0 mg/dL 1.7-2.4 Lab Interpretation (test code = Normal 55556-5) [facility]2021-09-28 09:49:03 Test Item Value Reference Range Interpretation Comments PHOSPHORUS (test code = 4666327000) 4.0 mg/dL 2.5-5.0 Lab Interpretation (test code = Normal 20637-8) [facility] (NA, K, CL, CO2, GLUCOSE, BUN, CREATININE, CA)2021-05-21 09:49:03 Test Item Value Reference Range Interpretation Comments NA (test code = 132 mmol/L 135-145 L 9214464350) K (test code = 4.3 mmol/L 3.5-5.0 0417777409) CL (test code = 105 mmol/L 98-108 8448417815) CO2 TOTAL (test code = 21 mmol/L 23-31 L 8307697016) AGAP (test code = 2-16 9216303543) BUN (test code = 25 mg/dL 7-23 H 7359492854) GLUCOSE (test code = 98 mg/dL 70-110 0802921720) CREATININE (test code = 1.20 mg/dL 0.60-1.25 8113009194) CALCIUM (test code = 8.4 mg/dL 8.6-10.6 L 4193278412) eGFR (test code = mL/min/1.73m2 2686421763) GILBERTO (test code = GILBERTO) Association of [...] tests). Lab Interpretation Abnormal (test code = 70762-2) [facility] with Uxigeuslexet2770-33-25 09:22:22 Test Item Value Reference Range Interpretation [...] RDW-SD (test code = 45.6 fL 38.5-51.6 08175-9) RDW-CV (test code = 13.7 % 12.1-15.4 788-0) PLT (test code = See_Comment [Automated 777-3) message] The sy stem which generated this result transmitted reference range : 150 - 328 10*3/ ?L. The reference r meredith was not used to interpret this result as normal/abnormal . MPV (test code = 9.7 fL 9.8-13.0 L 14675-0) NRBC/100 WBC (test See_Comment [Automat ed code = 5983830137) message] The system which generated this result transmitted reference range : 0.0 - 10.0 /100 WBCs. The refer ence range was not u sed to interpret th is result as normal/abnormal . NRBC x10^3 (test code <0.01 See_Comment [Auto mated = 5508102131) message] The s ystem which generated this result transmitted reference range : 10*3/?L. The reference range was not used to interpret this result as normal/abnormal . GRAN MAT (NEUT) % 49.4 % (test code = 770-8) IMM GRAN % (test code 0.60 % = 2552833411) LYMPH % (test code = 35.2 % 736-9) MONO % (test code = 11.9 % 5905-5) EOS % (test code = 2.1 % 713-8) BASO % (test code = 0.8 % 706-2) GRAN MAT x10^3(ANC) 2.33 10*3/uL 1.99-6.95 (test code = 1317905263) IMM GRAN x10^3 (test 0.03 10*3/uL 0.00-0.06 code = 6599633269) LYMPH x10^3 (test code 1.66 10*3/uL 1.09-3.23 = 731-0) MONO x10^3 (test code 0.56 10*3/uL 0.36-1.02 = 742-7) EOS x10^3 (test code = 0.10 10*3/uL 0.06-0.53 711-2) BASO x10^3 (test code 0.04 10*3/uL 0.01-0.09 = 704-7) Lab Interpretation Abnormal (test code = 66134-1) [facility] 20[facility]21:19 Test Item Value Reference Range Interpretation Comments LIPASE (test code = 3415356640) 307 U/L 0-220 H Lab Interpretation (test code = Abnormal 45938-8) [facility] (03213)2021-05-20 20:21:19 Test Item Value Reference Range Interpretation Comments NA (test code = 132 mmol/L 135-145 L 9542099313) K (test code = 4.3 mmol/L 3.5-5.0 8451482753) CL (test code = 100 mmol/L 98-108 9665936366) CO2 TOTAL (test code = 18 mmol/L 23-31 L 4193486535) AGAP (test code = 2-16 9106267375) BUN (test code = 32 mg/dL 7-23 H 7127243111) GLUCOSE (test code = 100 mg/dL 70-110 5484930982) CREATININE (test code = 1.76 mg/dL 0.60-1.25 H 5161466700) TOTAL BILI (test code = 0.7 mg/dL 0.1-1.4 7200021328) CALCIUM (test code = 9.6 mg/dL 8.6-10.6 8232844029) T PROTEIN (test code = 7.5 g/dL 6.3-8.2 4836258041) ALBUMIN (test code = 4.7 g/dL 3.5-5.0 7636997347) ALK PHOS (test code = 104 U/L 34-122 5091296944) ALTv (test code = 23 U/L 5-50 1742-6) AST(SGOT) (test code = 29 U/L 13-40 5949876855) eGFR (test code = mL/min/1.73m2 5757572889) GILBERTO (test code = GILBERTO) Association of [...] tests). Lab Interpretation Abnormal (test code = 80772-4) [facility] WITH [id number] 20:15:39 Test Item Value Reference Range Interpretation Comments WBC (test code = See_Comment [Automated message] 6690-2) The system [employer] generated this result transmitted ref erence range: 4.20 - 1 0.70 10*3/?L. The re ference range was not u sed to interpret this result as normal/abnor mal. RBC (test code = See_Comment [Automated message] 789-8) The system [employer] generated this result transmitted ref erence range: [...] RDW-SD (test code 44.8 fL 38.5-51.6 = 15620-4) RDW-CV (test code 13.7 % 12.1-15.4 = 788-0) PLT (test code = See_Comment [Automated message] 777-3) The system [employer] generated this result transmitted ref erence range: 150 - 32 8 10*3/?L. The re ference range was not u sed to interpret this result as normal/abnor mal. MPV (test code = 9.8 fL 9.8-13.0 71365-5) NRBC/100 WBC (test See_Comment [Automat ed message] code = 3387393251) The syste [employer] which generated this result transmitted ref erence range: 0.0 - 10 .0 /100 WBCs. The refer ence range was not u sed to interpret this result as normal/abnor mal. NRBC x10^3 (test <0.01 See_Comment [Automated message] code = 8986907042) The syste m which generated this result transmitted ref erence range: 10*3/?L. The reference range was not used to interpr et this result as normal/abnormal . GRAN MAT (NEUT) % 55.9 % (test code = 770-8) IMM GRAN % (test 0.40 % code = 2726024730) LYMPH % (test code 32.5 % = 736-9) MONO % (test code 9.4 % = 5905-5) EOS % (test code = 1.2 % 713-8) BASO % (test code 0.6 % = 706-2) GRAN MAT 3.87 10*3/uL 1.99-6.95 x10^3(ANC) (test code = 1011708930) IMM GRAN x10^3 0.03 10*3/uL 0.00-0.06 (test code = 8490795720) LYMPH x10^3 (test 2.25 10*3/uL 1.09-3.23 code = 731-0) MONO x10^3 (test 0.65 10*3/uL 0.36-1.02 code = 742-7) EOS x10^3 (test 0.08 10*3/uL 0.06-0.53 code = 711-2) BASO x10^3 (test 0.04 10*3/uL 0.01-0.09 code = 704-7) [facility] Acid Whole Xiavp0603-67-77 20:07:57 Test Item Value Reference Range Interpretation Comments LACTIC ACID (test code = 1.81 mmol/L 0.50-2.20 3350013792) Lab Interpretation (test code = Normal 29139-5) [facility] Metabolic Panel (NA, K, CL, CO2, GLUCOSE, BUN, CREATININE, CA)2021-05-08 10:32:35 Test Item Value Reference Range Interpretation Comments NA (test code = 135 mmol/L 135-145 6582666456) K (test code = 4.2 mmol/L 3.5-5.0 7710793702) CL (test code = 106 mmol/L 98-108 3477922091) CO2 TOTAL (test code 23 mmol/L 23-31 = 6253525034) AGAP (test code = 2-16 7112780419) BUN (test code = 22 mg/dL 7-23 1101464945) GLUCOSE (test code = 87 mg/dL 70-110 7415279859) CREATININE (test code 1.21 mg/dL 0.60-1.25 = 5454757687) CALCIUM (test code = 8.7 mg/dL 8.6-10.6 8710332681) eGFR (test code = mL/min/1.73m2 2290112769) GILBERTO (test code = GILBERTO) Association of [...] [facility] (NA, K, CL, CO2, GLUCOSE, BUN, CREATININE, CA)2021-05-08 10:32:35 Test Item Value Reference Range Interpretation Comments NA (test code = 135 mmol/L 135-145 6085294127) K (test code = 4.2 mmol/L 3.5-5.0 1378103365) CL (test code = 106 mmol/L 98-108 8263713127) CO2 TOTAL (test code 23 mmol/L 23-31 = 4517675510) AGAP (test code = 2-16 0951660363) BUN (test code = 22 mg/dL 7-23 8902903854) GLUCOSE (test code = 87 mg/dL 70-110 6656869652) CREATININE (test code 1.21 mg/dL 0.60-1.25 = 3621989023) CALCIUM (test code = 8.7 mg/dL 8.6-10.6 4268043252) eGFR (test code = mL/min/1.73m2 1764766108) GILBERTO (test code = GILBERTO) Association of [...] in imaging tests). [facility] with Qcvhjbohjwko3121-67-00 10:12:52 Test Item Value Reference Range Interpretation [...] RDW-SD (test code = 48.4 fL 38.5-51.6 09326-3) RDW-CV (test code = 14.0 % 12.1-15.4 788-0) PLT (test code = See_Comment [Automated 777-3) message] The sy stem which generated this result transmitted reference range : 150 - 328 10*3/ ?L. The reference r meredith was not used to interpret this result as normal/abnormal . MPV (test code = 9.6 fL 9.8-13.0 L 14442-4) NRBC/100 WBC (test See_Comment [Automat ed code = 8724168726) message] The system which generated this result transmitted reference range : 0.0 - 10.0 /100 WBCs. The refer ence range was not u sed to interpret th is result as normal/abnormal . NRBC x10^3 (test code <0.01 See_Comment [Auto mated = 4727117413) message] The s ystem which generated this result transmitted reference range : 10*3/?L. The reference range was not used to interpret this result as normal/abnormal . GRAN MAT (NEUT) % 55.6 % (test code = 770-8) IMM GRAN % (test code 0.20 % = 0871590893) LYMPH % (test code = 31.5 % 736-9) MONO % (test code = 9.9 % 5905-5) EOS % (test code = 2.0 % 713-8) BASO % (test code = 0.8 % 706-2) GRAN MAT x10^3(ANC) 2.76 10*3/uL 1.99-6.95 (test code = 1885679959) IMM GRAN x10^3 (test <0.03 0.00-0.06 code = 2725728935) LYMPH x10^3 (test code 1.56 10*3/uL 1.09-3.23 = 731-0) MONO x10^3 (test code 0.49 10*3/uL 0.36-1.02 = 742-7) EOS x10^3 (test code = 0.10 10*3/uL 0.06-0.53 711-2) BASO x10^3 (test code 0.04 10*3/uL 0.01-0.09 = 704-7) Lab Interpretation Abnormal (test code = 69763-5) [facility] with Dzvkkhbolbta2090-47-74 10:12:52 Test Item Value Reference Range Interpretation [...] RDW-SD (test code = 48.4 fL 38.5-51.6 55203-1) RDW-CV (test code = 14.0 % 12.1-15.4 788-0) PLT (test code = See_Comment [Automated 777-3) message] The sy stem which generated this result transmitted reference range : 150 - 328 10*3/ ?L. The reference r meredith was not used to interpret this result as normal/abnormal . MPV (test code = 9.6 fL 9.8-13.0 L 21587-3) NRBC/100 WBC (test See_Comment [Automat ed code = 3371372579) message] The system which generated this result transmitted reference range : 0.0 - 10.0 /100 WBCs. The refer ence range was not u sed to interpret th is result as normal/abnormal . NRBC x10^3 (test code <0.01 See_Comment [Auto mated = 7488565432) message] The s ystem which generated this result transmitted reference range : 10*3/?L. The reference range was not used to interpret this result as normal/abnormal . GRAN MAT (NEUT) % 55.6 % (test code = 770-8) IMM GRAN % (test code 0.20 % = 5620904988) LYMPH % (test code = 31.5 % 736-9) MONO % (test code = 9.9 % 5905-5) EOS % (test code = 2.0 % 713-8) BASO % (test code = 0.8 % 706-2) GRAN MAT x10^3(ANC) 2.76 10*3/uL 1.99-6.95 (test code = 1407716523) IMM GRAN x10^3 (test <0.03 0.00-0.06 code = 3207739666) LYMPH x10^3 (test code 1.56 10*3/uL 1.09-3.23 = 731-0) MONO x10^3 (test code 0.49 10*3/uL 0.36-1.02 = 742-7) EOS x10^3 (test code = 0.10 10*3/uL 0.06-0.53 711-2) BASO x10^3 (test code 0.04 10*3/uL 0.01-0.09 = 704-7) Lab Interpretation Abnormal (test code = 07531-6) [facility] METABOLIC PANEL (NA, K, CL, CO2, GLUCOSE, BUN, CREATININE, CA)2021-05-08 01:11:57 Test Item Value Reference Range Interpretation Comments NA (test code = 134 mmol/L 135-145 L 6272421353) K (test code = 4.7 mmol/L 3.5-5.0 2142688523) CL (test code = 100 mmol/L 98-108 5192728688) CO2 TOTAL (test code = 24 mmol/L 23-31 8653916445) AGAP (test code = 2-16 0762099456) BUN (test code = 27 mg/dL 7-23 H 8636553281) GLUCOSE (test code = 94 mg/dL 70-110 0179649412) CREATININE (test code = 1.31 mg/dL 0.60-1.25 H 6980615086) CALCIUM (test code = 9.5 mg/dL 8.6-10.6 9991248268) eGFR (test code = mL/min/1.73m2 6372775514) GILBERTO (test code = GILBERTO) Association of [...] tests). Lab Interpretation Abnormal (test code = 66969-6) [facility]17239[facility] (ALB,T.PRO,BILI T,BU/BC,ALT,AST,ALK PHOS)2021-05-08 01:11:57 Test Item Value Reference Range Interpretation Comments TOTAL BILI (test code = 8559628746) 0.8 mg/dL 0.1-1.1 BILI UNCON (test code = 0283529265) 0.2 mg/dL 0.1-1.1 BILI CONJ (test code = 3615184399) 0.0 mg/dL 0.0-0.3 T PROTEIN (test code = 7353789313) 7.1 g/dL 6.3-8.2 ALBUMIN (test code = 4189104354) 4.4 g/dL 3.5-5.0 ALK PHOS (test code = 0880993614) 88 U/L 34-122 ALTv (test code = 1742-6) 40 U/L 5-50 AST(SGOT) (test code = 4853021495) 38 U/L 13-40 Lab Interpretation (test code = Normal 43922-6) [facility] (NA, K, CL, CO2, GLUCOSE, BUN, CREATININE, CA)2021-05-08 01:11:57 Test Item Value Reference Range Interpretation Comments NA (test code = 134 mmol/L 135-145 L 6549690848) K (test code = 4.7 mmol/L 3.5-5.0 9189402031) CL (test code = 100 mmol/L 98-108 6123430797) CO2 TOTAL (test code = 24 mmol/L 23-31 8884289261) AGAP (test code = 2-16 7545481933) BUN (test code = 27 mg/dL 7-23 H 0718368500) GLUCOSE (test code = 94 mg/dL 70-110 3304450784) CREATININE (test code = 1.31 mg/dL 0.60-1.25 H 0798707790) CALCIUM (test code = 9.5 mg/dL 8.6-10.6 2475893680) eGFR (test code = mL/min/1.73m2 6979104721) GILBERTO (test code = GILBERTO) Association of [...] tests). Lab Interpretation Abnormal (test code = 63501-4) [facility]53944[facility] (ALB,T.PRO,BILI T,BU/BC,ALT,AST,ALK PHOS)2021-05-08 01:11:57 Test Item Value Reference Range Interpretation Comments TOTAL BILI (test code = 1430919722) 0.8 mg/dL 0.1-1.1 BILI UNCON (test code = 8473660972) 0.2 mg/dL 0.1-1.1 BILI CONJ (test code = 2859783459) 0.0 mg/dL 0.0-0.3 T PROTEIN (test code = 3626771980) 7.1 g/dL 6.3-8.2 ALBUMIN (test code = 9998532352) 4.4 g/dL 3.5-5.0 ALK PHOS (test code = 4275480568) 88 U/L 34-122 ALTv (test code = 1742-6) 40 U/L 5-50 AST(SGOT) (test code = 2647192549) 38 U/L 13-40 Lab Interpretation (test code = Normal 62181-0) [facility] WITH [id number] 00:59:56 Test Item Value Reference Range Interpretation [...] RDW-SD (test code = 46.9 fL 38.5-51.6 78398-7) RDW-CV (test code = 13.9 % 12.1-15.4 788-0) PLT (test code = See_Comment [Automated 777-3) message] The sy stem which generated this result transmitted reference range : 150 - 328 10*3/ ?L. The reference r meredith was not used to interpret this result as normal/abnormal . MPV (test code = 10.0 fL 9.8-13.0 61599-9) NRBC/100 WBC (test See_Comment [Automat ed code = 8695809044) message] The system which generated this result transmitted reference range : 0.0 - 10.0 /100 WBCs. The refer ence range was not u sed to interpret th is result as normal/abnormal . NRBC x10^3 (test code <0.01 See_Comment [Auto mated = 3527687730) message] The s ystem which generated this result transmitted reference range : 10*3/?L. The reference range was not used to interpret this result as normal/abnormal . GRAN MAT (NEUT) % 53.9 % (test code = 770-8) IMM GRAN % (test code 0.30 % = 7442682139) LYMPH % (test code = 32.0 % 736-9) MONO % (test code = 11.6 % 5905-5) EOS % (test code = 1.6 % 713-8) BASO % (test code = 0.6 % 706-2) GRAN MAT x10^3(ANC) 3.67 10*3/uL 1.99-6.95 (test code = [id number]) IMM GRAN x10^3 (test <0.03 0.00-0.06 code = [id number]) LYMPH x10^3 (test code 2.18 10*3/uL 1.09-3.23 = 731-0) MONO x10^3 (test code 0.79 10*3/uL 0.36-1.02 = 742-7) EOS x10^3 (test code = 0.11 10*3/uL 0.06-0.53 711-2) BASO x10^3 (test code 0.04 10*3/uL 0.01-0.09 = 704-7) Lab Interpretation Abnormal (test code = 47447-3) [facility] WITH [id number] 00:59:56 Test Item Value Reference Range Interpretation [...] RDW-SD (test code = 46.9 fL 38.5-51.6 67521-0) RDW-CV (test code = 13.9 % 12.1-15.4 788-0) PLT (test code = See_Comment [Automated 777-3) message] The sy stem which generated this result transmitted reference range : 150 - 328 10*3/ ?L. The reference r meredith was not used to interpret this result as normal/abnormal . MPV (test code = 10.0 fL 9.8-13.0 65186-4) NRBC/100 WBC (test See_Comment [Automat ed code = [id number]) message] The system which generated this result transmitted reference range : 0.0 - 10.0 /100 WBCs. The refer ence range was not u sed to interpret th is result as normal/abnormal . NRBC x10^3 (test code <0.01 See_Comment [Auto mated = [id number]) message] The s ystem which generated this result transmitted reference range : 10*3/?L. The reference range was not used to interpret this result as normal/abnormal . GRAN MAT (NEUT) % 53.9 % (test code = 770-8) IMM GRAN % (test code 0.30 % = [id number]) LYMPH % (test code = 32.0 % 736-9) MONO % (test code = 11.6 % 5905-5) EOS % (test code = 1.6 % 713-8) BASO % (test code = 0.6 % 706-2) GRAN MAT x10^3(ANC) 3.67 10*3/uL 1.99-6.95 (test code = [id number]) IMM GRAN x10^3 (test <0.03 0.00-0.06 code = [id number]) LYMPH x10^3 (test code 2.18 10*3/uL 1.09-3.23 = 731-0) MONO x10^3 (test code 0.79 10*3/uL 0.36-1.02 = 742-7) EOS x10^3 (test code = 0.11 10*3/uL 0.06-0.53 711-2) BASO x10^3 (test code 0.04 10*3/uL 0.01-0.09 = 704-7) Lab Interpretation Abnormal (test code = 53010-4) [facility] W/AUTO [id number] 09:20:00 Test Item Value Reference Range Interpretation [...] (test code NO = MDIFF) CBC W/AUTO [id number] 08:59:00 Test Item Value Reference Range Interpretation [...] REQUIRED (test code = MDIFF) BASIC METABOLIC [id number] 08:21:00 Test Item Value Reference Range Interpretation [...] 8.4 mg/dL 8.0-10.5 N CA) BASIC METABOLIC [id number] 08:34:00 Test Item Value Reference Range Interpretation [...] 8.4 mg/dL 8.0-10.5 N CA) CBC W/AUTO [id number] 07:41:00 Test Item Value Reference Range Interpretation [...] = MDIFF) UA RFLX MICR CULT IF [id number] 10:10:00 Test Item Value Reference Range Interpretation [...] > 100.4 FSpecimen Description: MID STREAMBASIC METABOLIC [id number] 04:13:00 Test Item Value Reference Range Interpretation [...] mg/dL 8.0-10.5 N CA) Coronavirus 2019 nCoV Ctmgdlx8039-41-94 22:03:00 Test Item Value Reference Range Interpretation Comments Coronavirus 2019 Negative Negative Performed b y certified nCoV 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 Negative result s do not preclude NEFY-MmY-9nubxp tion and should not be u sed as the sole basis forp atient management deci sions. Negative result s should beconsidered in the context of a patient's recent exposures,histo ry, presence of clinical sig ns and symptoms consis tentwith COVID-19. CBC W/AUTO IQOQ3274-03-24 21:11:00 Test Item Value Reference Range Interpretation [...] MX#) 0.6 k/mm3 0.1-0.8 N BASIC METABOLIC [id number] 19:00:00 Test Item Value Reference Range Interpretation [...] POCGLU) 92 MG/DL - CT ABD PELVIS W/HSDR9358-29-62 00:00:00 [facility] : 1970 Sex: MName: DORA JOSEPH FSED : 1970 Age/S: 51 / M [address] Unit #: [id number] Loc: [place] [address] Phys: Marcello Benoit MD Acct: [id number] Dis Date: Status: REG ER PHONE #: Exam Date: 04/28/2021 1910 FAX #: Reason: epigastric and LLQ pain, R-sided colostomy EXAMS: CPT CODE: [id number] CT ABD PELVIS W/CONT 51068 PROCEDURE INFORMATION: Exam: CT Abdomen And Pelvis [...] 1970 Age/S: 51 / M [address] Unit #: [id number] Loc: [place] [address] Phys: Marcello Benoit MD Acct: [id number] Dis Date: Status: REG ER PHONE #: Exam Date: 04/28/20211913 FAX #: Reason: epigastricand LLQ pain, R-sided colostomy EXAMS: CPT CODE: [id number] CT ABD PELVIS W/CONT 21308 <Continued> Reproductive: Unremarkable as visualized. Bones/joints: Unremarkable. No acute fracture. Soft tissues: Unremarkable. IMPRESSION: 1. 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 2. Mild long segment bowel wall thickening/mucosal prominence compatible with an enteritis. No evidence for obstruction. at 1955 Reported and signed by: Hector Nichols M.D. CC: Marcello Benoit MD Technologist:Stephanie Albrecht, RT(R)(CT) CTDI: DLP: Trnscb Date/Time: 04/28/2021 (1955) [email or web address] Orig Print D/T: S: 04/28/2021 (1955) PAGE 2 Signed ReportBasic Metabolic Panel (NA, K, CL, CO2, GLUCOSE, BUN, CREATININE, CA)2020-08-23 10:29:00 Test Item Value Reference Range Interpretation Comments NA (test code = 139 mmol/L 135-145 0257423134) K (test code = 4.0 mmol/L 3.5-5 7464020711) CL (test code = 108 mmol/L 98-108 4783506656) CO2 TOTAL (test code = 22 mmol/L 23-31 L 3339590452) AGAP (test code = 2-16 7549416740) BUN (test code = 25 mg/dL 7-23 H 3050841930) GLUCOSE (test code = 91 mg/dL 70-110 7913912787) CREATININE (test code = 1.14 mg/dL 0.6-1.25 9562137975) CALCIUM (test code = 8.9 mg/dL 8.6-10.6 9913540068) eGFR Calculation mL/min/1.73m2 (Non-) (test code = 7973503081) eGFR Calculation mL/min/1.73m2 () (test code = 2681768134) GILBERTO (test code = GILBERTO) Association of [...] tests). Lab Interpretation Abnormal (test code = 78071-9) [facility]FILE / [id number] 10:13:00 Test Item Value Reference Range Interpretation Comments WBC (test code = 6690-2) See_Comment [A utomated message] The system [employer] generated this result transmit dain reference range : 4.20 - 10.70 10*3/?L. The reference range was not used to interpret this result as normal/abnormal . RBC (test code = 789-8) See_Comment L [Au tomated message] The system [employer] generated this result transmit dain reference range [...] 777-3) See_Comment [Au tomated message] The system [employer] generated this result transmit dain reference range : 150 - 328 10*3/?L. The reference range was not used to interpret this result as normal/abnormal . MPV (test code = 9.0 fL 9.8-13 L 85473-3) RDW-CV (test code = 18.7 % 12.1-15.4 H 788-0) RDW-SD (test code = 59.7 fL 38.5-51.6 H 80549-9) NRBC x10^3 (test code = <0.01 See_Comment [Au tomated message] 1234726473) The system [employer] generated this result transmit dain reference range : 10*3/?L. The reference range was not used to interpret this result as normal/abnormal . NRBC/100 WBC (test code See_Comment [Au tomated message] = 8900752390) The system [facility] generated this result transmit dain reference range : 0.0 - 10.0 /100 WBC s. The reference r meredith was not used to interpret this result as normal/abnormal . IPF % (test code = 4459900583) Lab Interpretation (test Abnormal code = 03515-0) [facility]COVID[facility] (ID NOW RAPID TESTING)2020-08-23 00:56:00 Test Item Value Reference Range Interpretation Comments SARS-CoV-2 Rapid ID NOW Not Detected Not Detected (test code = 09230-8) GILBERTO (test code = GILBERTO) ID NOW COVID-19 Assay is an isothermal nucleic acid amplification test intended for the qualitative detection of nucleic acid from SARS-CoV-2 viral RNA in nasopharyngeal (CABIN OUTFITTER) specimens. It is used under Emergency Use [...] indicated. Lab Interpretation Normal (test code = 09863-2) [facility] (NA, K, CL, CO2, GLUCOSE, BUN, CREATININE, CA)2020-08-22 22:36:00 Test Item Value Reference Range Interpretation Comments NA (test code = 133 mmol/L 135-145 L 0199121542) K (test code = 4.5 mmol/L 3.5-5 4334311423) CL (test code = 104 mmol/L 98-108 0209697455) CO2 TOTAL (test code = 25 mmol/L 23-31 1708961943) AGAP (test code = 2-16 4279939265) BUN (test code = 27 mg/dL 7-23 H 6477331732) GLUCOSE (test code = 94 mg/dL 70-110 9752093052) CREATININE (test code = 1.33 mg/dL 0.6-1.25 H 0328268942) CALCIUM (test code = 9.5 mg/dL 8.6-10.6 0169045170) eGFR Calculation mL/min/1.73m2 (Non-) (test code = 0758848272) eGFR Calculation mL/min/1.73m2 () (test code = 9592848605) GILBERTO (test code = GILBERTO) Association of [...] tests). Lab Interpretation Abnormal (test code = 61398-3) [facility] CenterHep[facility] Function Panel (ALB, T.PRO, BILI T, BU/BC, ALT, AST, ALK PHOS)2020-08-22 22:36:00 Test Item Value Reference Range Interpretation Comments TOTAL BILI (test code = 1822496163) 0.4 mg/dL 0.1-1.1 BILI UNCON (test code = 5988801640) 0.1 mg/dL 0.1-1.1 BILI CONJ (test code = 8245659781) 0.0 mg/dL 0-0.3 T PROTEIN (test code = 5270933790) 6.8 g/dL 6.3-8.2 ALBUMIN (test code = 1103145747) 4.0 g/dL 3.5-5 ALK PHOS (test code = 3796655027) 78 U/L 34-122 ALTv (test code = 1742-6) 35 U/L 5-50 AST(SGOT) (test code = 0282446604) 29 U/L 13-40 Lab Interpretation (test code = Normal 83563-0) [facility] with Acdbvlwmjdpx6241-56-27 22:15:00 Test Item Value Reference Range Interpretation [...] (test code = 60.6 fL 38.5-51.6 H 06574-3) RDW-CV (test code = 19.0 % 12.1-15.4 H 788-0) PLT (test code = See_Comment [Automated 777-3) message] The sy stem which generated this result transmitted reference range : 150 - 328 10*3/ ?L. The reference r meredith was not used to interpret this result as normal/abnormal . MPV (test code = 9.3 fL 9.8-13 L 54627-1) NRBC/100 WBC (test See_Comment [Automat ed code = 4348711889) message] The system which generated this result transmitted reference range : 0.0 - 10.0 /100 WBCs. The refer ence range was not u sed to interpret th is result as normal/abnormal . NRBC x10^3 (test code <0.01 See_Comment [Auto mated = 1751253356) message] The s ystem which generated this result transmitted reference range : 10*3/?L. The reference range was not used to interpret this result as normal/abnormal . GRAN MAT (NEUT) % 58.6 % (test code = 770-8) IMM GRAN % (test code 0.60 % = 0817049868) LYMPH % (test code = 28.2 % 736-9) MONO % (test code = 9.5 % 5905-5) EOS % (test code = 2.4 % 713-8) BASO % (test code = 0.7 % 706-2) GRAN MAT x10^3(ANC) 3.14 10*3/uL 1.99-6.95 (test code = 0995895545) IMM GRAN x10^3 (test 0.03 10*3/uL 0-0.06 code = 8134346966) LYMPH x10^3 (test code 1.51 10*3/uL 1.09-3.23 = 731-0) MONO x10^3 (test code 0.51 10*3/uL 0.36-1.02 = 742-7) EOS x10^3 (test code = 0.13 10*3/uL 0.06-0.53 711-2) BASO x10^3 (test code 0.04 10*3/uL 0.01-0.09 = 704-7) Lab Interpretation Abnormal (test code = 48227-1) [facility] CenterCT SOFT TISSUE NECK W JNEIZUXV8811-17-72 00:47:10Impression: 1. Patent aerodigestive tract.2. No discrete [...] glands are normal. Thyroid gland is unremarkable. Television Announcer spaces are normal. Buccal spaces are normal. [...] submandibular glands are normal. Thyroid gland is unremarkable.Television Announcer spaces are normal. Buccal spaces are normal. [...] or abscess is identified.RL: [id number] of Report [facility] CenterC[facility] (ID NOW RAPID TESTING)2020-07-09 23:23:00 Test Item Value Reference Range Interpretation Comments SARS-CoV-2 Rapid ID NOW Not Detected Not Detected (test code = 64121-8) GILBERTO (test code = GILBERTO) ID NOW COVID-19 Assay is an isothermal nucleic acid amplification test intended for the qualitative detection of nucleic acid from SARS-CoV-2 viral RNA in nasopharyngeal (CABIN OUTFITTER) specimens. It is used under Emergency Use [...] indicated. Lab Interpretation Normal (test code = 59759-5) [facility] CenterUrinalysis2020-11-16 23:21:00 Test Item Value Reference Range Interpretation Comments APPEARANCE (test code = Clear Clear 1664036441) COLOR (test code = Yellow Yellow 3711797045) PH (test code = 4.8-8.0 1581373393) SP GRAVITY (test code = 1.003-1.030 6812607327) GLU U QUAL (test code = Normal Normal 0673227267) BLOOD (test code = Negative Negative 7007306751) KETONES (test code = Negative Negative 9145141557) PROTEIN (test code = 30 mg/dL Negative A 2887-8) UROBILIN (test code = Normal Normal 9085502141) BILIRUBIN (test code = Negative Negative 5508800161) NITRITE (test code = Negative Negative 0157531070) LEUK ROGER (test code = Negative Negative 2487711389) RBC/HPF (test code = <1 See_Comment [Autom ated message] 3376791347) The system [employer] generated this result transmitted ref erence range: 0 - 3 HP F. The reference range was not used to int erpret this result as normal/abnormal . WBC/HPF (test code = See_Comment [Autom ated message] 5484323024) The system [employer] generated this result transmitted ref erence range: 0 - 5 HP F. The reference range was not used to int erpret this result as normal/abnormal . BACTERIA (test code = Negative Negative 0376369867) MUCOUS (test code = Moderate Negative LPF A 6057243504) HYAL CAST (test code = See_Comment H [Aut omated message] 0236359965) The system [employer] generated this result transmitted ref erence range: <=2 LPF. The reference range was not used to int erpret this result as normal/abnormal . Lab Interpretation (test Abnormal code = 76850-6) [facility] Metabolic Panel (NA, K, CL, CO2, GLUCOSE, BUN, CREATININE, CA)2020-07-09 23:20:00 Test Item Value Reference Range Interpretation Comments NA (test code = 135 mmol/L 135-145 0151656038) K (test code = 3.9 mmol/L 3.5-5 4220633313) CL (test code = 107 mmol/L 98-108 5181643884) CO2 TOTAL (test code = 20 mmol/L 23-31 L 0188619971) AGAP (test code = 2-16 4785525067) BUN (test code = 27 mg/dL 7-23 H 4684511185) GLUCOSE (test code = 86 mg/dL 70-110 4645535076) CREATININE (test code = 1.11 mg/dL 0.6-1.25 1368451845) CALCIUM (test code = 9.0 mg/dL 8.6-10.6 8510751231) eGFR Calculation mL/min/1.73m2 (Non-) (test code = 9397158355) eGFR Calculation mL/min/1.73m2 () (test code = 8369193230) GILBERTO (test code = GILBERTO) Association of [...] tests). Lab Interpretation Abnormal (test code = 39275-7) [facility] CenterRAPID STREP SCREEN FOR GROUP [id number] 23:11:00 Test Item Value Reference Range Interpretation Comments Streptococcus pyogenes (group A) Negative Negative antigen (test code = 12567-6) Lab Interpretation (test code = Normal 34815-1) [facility] with Myqozgarydpc9321-75-99 23:02:00 Test Item Value Reference Range Interpretation [...] (test code = 55.5 fL 38.5-51.6 H 23698-9) RDW-CV (test code = 18.9 % 12.1-15.4 H 788-0) PLT (test code = See_Comment [Automated 777-3) message] The sy stem which generated this result transmitted reference range : 150 - 328 10*3/ ?L. The reference r meredith was not used to interpret this result as normal/abnormal . MPV (test code = 8.9 fL 9.8-13 L 95922-6) NRBC/100 WBC (test See_Comment [Automat ed code = 7945833526) message] The system which generated this result transmitted reference range : 0.0 - 10.0 /100 WBCs. The refer ence range was not u sed to interpret th is result as normal/abnormal . NRBC x10^3 (test code <0.01 See_Comment [Auto mated = 0509224693) message] The s ystem which generated this result transmitted reference range : 10*3/?L. The reference range was not used to interpret this result as normal/abnormal . GRAN MAT (NEUT) % 59.4 % (test code = 770-8) IMM GRAN % (test code 0.20 % = 5052067912) LYMPH % (test code = 29.9 % 736-9) MONO % (test code = 9.0 % 5905-5) EOS % (test code = 1.2 % 713-8) BASO % (test code = 0.3 % 706-2) GRAN MAT x10^3(ANC) 3.56 10*3/uL 1.99-6.95 (test code = 9324429199) IMM GRAN x10^3 (test <0.03 0-0.06 code = 3230152313) LYMPH x10^3 (test code 1.79 10*3/uL 1.09-3.23 = 731-0) MONO x10^3 (test code 0.54 10*3/uL 0.36-1.02 = 742-7) EOS x10^3 (test code = 0.07 10*3/uL 0.06-0.53 711-2) BASO x10^3 (test code <0.03 0.01-0.09 = 704-7) Lab Interpretation Abnormal (test code = 45969-7) [facility] CenterUrinalysis2020-10-13 13:37:00 Test Item Value Reference Range Interpretation Comments APPEARANCE (test code = Hazy Clear A 5936546320) COLOR (test code = Yellow Yellow 5917073732) PH (test code = 4.8-8.0 0516202581) SP GRAVITY (test code = 1.003-1.030 H 5545730558) GLU U QUAL (test code = Normal Normal 4378119337) BLOOD (test code = Negative Negative 1403213275) KETONES (test code = Negative Negative 2564572833) PROTEIN (test code = Negative Negative 2887-8) UROBILIN (test code = Normal Normal 2622077952) BILIRUBIN (test code = Negative Negative 1701697183) NITRITE (test code = Negative Negative 4333444093) LEUK ROGER (test code = Negative Negative 3361528054) RBC/HPF (test code = See_Comment H [Autom ated message] 5717915857) The system [employer] generated this result transmitted ref erence range: 0 - 3 HP F. The reference range was not used to int erpret this result as normal/abnormal . WBC/HPF (test code = See_Comment [Autom ated message] 7563112161) The system [employer] generated this result transmitted ref erence range: 0 - 5 HP F. The reference range was not used to int erpret this result as normal/abnormal . BACTERIA (test code = Negative Negative 5878875938) MUCOUS (test code = Moderate Negative LPF A 5723416457) CA OXALATE (test code = See_Comment [Au tomated message] 3896197032) The system [employer] generated this result transmitted ref erence range: <=1 HPF. The reference range was not used to int erpret this result as normal/abnormal . SPERM (test code = See_Comment H [Automat ed message] 7679927095) The system [employer] generated this result transmitted ref erence range: <=1 HPF. The reference range was not used to int erpret this result as normal/abnormal . HYAL CAST (test code = See_Comment H [Aut omated message] 5292731820) The system [employer] generated this result transmitted ref erence range: <=2 LPF. The reference range was not used to int erpret this result as normal/abnormal . Lab Interpretation (test Abnormal code = 55549-2) [facility] CenterCT ABDOMEN PEL[facility] W [id number] 13:22:00CT Abdomen and Pelvis with intravenous contrast. [...] infection. Left seminal vesicleshowed no significant enhancement. [facility], Radiant Results [...] sign of infection. Left seminal vesicleshowed no significantenhancement.[facility] [id number] 12:40:00 Test Item Value Reference Range Interpretation Comments TROPONIN I (test <0.012 See_Comment [Automated code = 5873516040) message] The system which generated this result [...] ? Lab Interpretation Normal (test code = 94067-6) [facility] Met[facility] (NA, K, CL, CO2, GLUCOSE, BUN, CREATININE, CA)2020-06-05 12:28:00 Test Item Value Reference Range Interpretation Comments NA (test code = 139 mmol/L 135-145 9565064246) K (test code = 4.4 mmol/L 3.5-5 7249789293) CL (test code = 112 mmol/L 98-108 H 3686596087) CO2 TOTAL (test code = 24 mmol/L 23-31 8823913256) AGAP (test code = 2-16 2303739704) BUN (test code = 23 mg/dL 7-23 4111716724) GLUCOSE (test code = 88 mg/dL 70-110 2057231259) CREATININE (test code = 0.96 mg/dL 0.6-1.25 0278053467) CALCIUM (test code = 9.5 mg/dL 8.6-10.6 4318119192) eGFR Calculation mL/min/1.73m2 (Non-) (test code = 5368774357) eGFR Calculation mL/min/1.73m2 () (test code = 1380610077) GILBERTO (test code = GILBERTO) Association of [...] tests). Lab Interpretation Abnormal (test code = 03617-4) [facility] (ALB, T.PRO, BILI T, BU/BC, ALT, AST, ALK PHOS)2020-06-05 12:28:00 Test Item Value Reference Range Interpretation Comments TOTAL BILI (test code = 3704098605) 0.5 mg/dL 0.1-1.1 BILI UNCON (test code = 5810375772) 0.3 mg/dL 0.1-1.1 BILI CONJ (test code = 4014998381) 0.0 mg/dL 0-0.3 T PROTEIN (test code = 9829989230) 6.6 g/dL 6.3-8.2 ALBUMIN (test code = 3364955999) 3.7 g/dL 3.5-5 ALK PHOS (test code = 8340758347) 79 U/L 34-122 ALTv (test code = 1742-6) 23 U/L 5-50 AST(SGOT) (test code = 1017938514) 27 U/L 13-40 Lab Interpretation (test code = Normal 29458-4) [facility] CenterLipase Kliah1933-45-20 12:28:00 Test Item Value Reference Range Interpretation Comments LIPASE (test code = 3304037861) 150 U/L 0-220 Lab Interpretation (test code = Normal 57742-2) [facility] with Xwgglssgocfb2373-62-63 12:11:00 Test Item Value Reference Range Interpretation [...] (test code = 62.2 fL 38.5-51.6 H 03443-2) RDW-CV (test code = 20.0 % 12.1-15.4 H 788-0) PLT (test code = See_Comment [Automated 777-3) message] The sy stem which generated this result transmitted reference range : 150 - 328 10*3/ ?L. The reference r meredith was not used to interpret this result as normal/abnormal . MPV (test code = 10.0 fL 9.8-13 68633-9) NRBC/100 WBC (test See_Comment [Automat ed code = 8628652766) message] The system which generated this result transmitted reference range : 0.0 - 10.0 /100 WBCs. The refer ence range was not u sed to interpret th is result as normal/abnormal . NRBC x10^3 (test code <0.01 See_Comment [Auto mated = 4455329416) message] The s ystem which generated this result transmitted reference range : 10*3/?L. The reference range was not used to interpret this result as normal/abnormal . GRAN MAT (NEUT) % 65.7 % (test code = 770-8) IMM GRAN % (test code 0.30 % = 6031236138) LYMPH % (test code = 21.2 % 736-9) MONO % (test code = 10.0 % 5905-5) EOS % (test code = 2.3 % 713-8) BASO % (test code = 0.5 % 706-2) GRAN MAT x10^3(ANC) 3.99 10*3/uL 1.99-6.95 (test code = 1357013389) IMM GRAN x10^3 (test <0.03 0-0.06 code = 4682012962) LYMPH x10^3 (test code 1.29 10*3/uL 1.09-3.23 = 731-0) MONO x10^3 (test code 0.61 10*3/uL 0.36-1.02 = 742-7) EOS x10^3 (test code = 0.14 10*3/uL 0.06-0.53 711-2) BASO x10^3 (test code 0.03 10*3/uL 0.01-0.09 = 704-7) Lab Interpretation Abnormal (test code = 47219-9) [facility] CenterLactic Acid Whole Inwof3208-53-00 12:04:00 Test Item Value Reference Range Interpretation Comments LACTIC ACID (test code = 1.23 mmol/L 8205412035) [facility] CenterIR ABSCESS DRAIN [id number] 14:57:23 Successful abscessogram demonstrated unchanged position of [...] consentwas obtained. Prior to beginning the procedure, [place] Protocol was usedtoconfirm the patient's identity and planned procedure. Maximum sterilebarriers including cap, mask, momin nd hygiene, sterile gloves, sterile gown,large sterile drape and cutaneous antisepsis were used. Theskin overlying the existing drainage catheter in the right upperquadrant of the abdomen was sterilely prepped, draped and infiltrated with1 percent lidocaine. A content editor image was documented prior to the injection [...] radiologist: Dr. Sadiq Gordon; Resident: Dr. Johnny Tilley;[facility] resident: Dr. Leeanna Valenzuela.SEDATION: No moderate sedation was administered for this procedure.RADIATION DOSE: 7.7 mGy.TECHNIQUE: The risks, benefits and alternatives were discussed and informed consentwas obtained. Prior to beginning the procedure, [place] Protocol was usedto confirm the patient's identity and planned procedure. Maximum sterilebarriers including cap, mask, hand hygiene, sterile gloves, sterile gown,large sterile drape and cutaneous antisepsis were used. The skin overlying the existing drainage catheter in the right upperquadrant of the abdomen was sterilely prepped, draped and infiltrated with1 percent lidocaine. A content editor image was documented prior to the injection [...] this study and agree with theabove report. [facility] METABOLIC PANEL (NA, K, CL, CO2, GLUCOSE, BUN, CREATININE, CA)2020-05-31 08:13:00 Test Item Value Reference Range Interpretation Comments NA (test code = 135 mmol/L 135-145 0758262561) K (test code = 4.1 mmol/L 3.5-5 1077735179) CL (test code = 99 mmol/L 98-108 9611448974) CO2 TOTAL (test code = 32 mmol/L 23-31 H 3287421249) AGAP (test code = 2-16 7342172628) BUN (test code = 14 mg/dL 7-23 2011444873) GLUCOSE (test code = 89 mg/dL 70-110 4841046771) CREATININE (test code = 0.67 mg/dL 0.6-1.25 5330549267) CALCIUM (test code = 8.2 mg/dL 8.6-10.6 L 6265520002) eGFR Calculation mL/min/1.73m2 (Non-) (test code = 6816963510) eGFR Calculation mL/min/1.73m2 () (test code = 7948618838) GILBERTO (test code = GILBERTO) Association of [...] tests). Lab Interpretation Abnormal (test code = 38861-6) [facility] CenterMAGNESIUM2020-10-08 08:13:00 Test Item Value Reference Range Interpretation Comments MAGNESIUM (test code = 6916917838) 1.8 mg/dL 1.7-2.4 Lab Interpretation (test code = Normal 94653-6) [facility] CenterPHOSPHORUS2020-10-08 08:13:00 Test Item Value Reference Range Interpretation Comments PHOSPHORUS (test code = 7811308233) 5.2 mg/dL 2.5-5 H Lab Interpretation (test code = Abnormal 75397-7) [facility] CenterCB WITH [id number] 08:05:00 Test Item Value Reference Range Interpretation [...] (test code = 57.9 fL 38.5-51.6 H 30217-1) RDW-CV (test code = 18.7 % 12.1-15.4 H 788-0) PLT (test code = See_Comment [Automated 777-3) message] The sy stem which generated this result transmitted reference range : 150 - 328 10*3/ ?L. The reference r meredith was not used to interpret this result as normal/abnormal . MPV (test code = 10.3 fL 9.8-13 61163-2) NRBC/100 WBC (test See_Comment [Automat ed code = 7883584679) message] The system which generated this result transmitted reference range : 0.0 - 10.0 /100 WBCs. The refer ence range was not u sed to interpret th is result as normal/abnormal . NRBC x10^3 (test code <0.01 See_Comment [Auto mated = 7284892960) message] The s ystem which generated this result transmitted reference range : 10*3/?L. The reference range was not used to interpret this result as normal/abnormal . GRAN MAT (NEUT) % 56.4 % (test code = 770-8) IMM GRAN % (test code 0.50 % = 5325695645) LYMPH % (test code = 26.2 % 736-9) MONO % (test code = 12.2 % 5905-5) EOS % (test code = 4.2 % 713-8) BASO % (test code = 0.5 % 706-2) GRAN MAT x10^3(ANC) 2.31 10*3/uL 1.99-6.95 (test code = 5419066752) IMM GRAN x10^3 (test <0.03 0-0.06 code = 7532349642) LYMPH x10^3 (test code 1.07 10*3/uL 1.09-3.23 L = 731-0) MONO x10^3 (test code 0.50 10*3/uL 0.36-1.02 = 742-7) EOS x10^3 (test code = 0.17 10*3/uL 0.06-0.53 711-2) BASO x10^3 (test code <0.03 0.01-0.09 = 704-7) Lab Interpretation Abnormal (test code = 80788-6) [facility] METABOLIC PANEL (NA, K, CL, CO2, GLUCOSE, BUN, CREATININE, CA)2020-05-30 09:04:00 Test Item Value Reference Range Interpretation Comments NA (test code = 138 mmol/L 135-145 7454450082) K (test code = 4.4 mmol/L 3.5-5 1163250170) CL (test code = 99 mmol/L 98-108 0976488679) CO2 TOTAL (test code = 33 mmol/L 23-31 H 0016067803) AGAP (test code = 2-16 2841479247) BUN (test code = 18 mg/dL 7-23 6786438362) GLUCOSE (test code = 86 mg/dL 70-110 4956124488) CREATININE (test code = 0.61 mg/dL 0.6-1.25 6692993827) CALCIUM (test code = 8.1 mg/dL 8.6-10.6 L 0668524402) eGFR Calculation mL/min/1.73m2 (Non-) (test code = 4368293941) eGFR Calculation mL/min/1.73m2 () (test code = 8737529228) GILBERTO (test code = GILBERTO) Association of [...] tests). Lab Interpretation Abnormal (test code = 97773-7) [facility]:00 Test Item Value Reference Range Interpretation Comments MAGNESIUM (test code = 5336582413) 2.0 mg/dL 1.7-2.4 Lab Interpretation (test code = Normal 21701-2) [facility] 09:04:00 Test Item Value Reference Range Interpretation Comments PHOSPHORUS (test code = 5766064960) 4.6 mg/dL 2.5-5 Lab Interpretation (test code = Normal 83983-7) [facility] (NA, K, CL, CO2, GLUCOSE, BUN, CREATININE, CA)2020-05-29 07:31:00 Test Item Value Reference Range Interpretation Comments NA (test code = 135 mmol/L 135-145 5909693457) K (test code = 4.0 mmol/L 3.5-5 1812617745) CL (test code = 100 mmol/L 98-108 2788635102) CO2 TOTAL (test code = 32 mmol/L 23-31 H 2797014563) AGAP (test code = 2-16 5643769623) BUN (test code = 19 mg/dL 7-23 2615456165) GLUCOSE (test code = 86 mg/dL 70-110 7047626319) CREATININE (test code = 0.68 mg/dL 0.6-1.25 3061497672) CALCIUM (test code = 8.0 mg/dL 8.6-10.6 L 4846910185) eGFR Calculation mL/min/1.73m2 (Non-) (test code = 8008481825) eGFR Calculation mL/min/1.73m2 () (test code = 3174528472) GILBERTO (test code = GILBERTO) Association of [...] tests). Lab Interpretation Abnormal (test code = 18945-2) [facility] 07:31:00 Test Item Value Reference Range Interpretation Comments MAGNESIUM (test code = 7392695517) 1.6 mg/dL 1.7-2.4 L Lab Interpretation (test code = Abnormal 04821-0) [facility] 07:31:00 Test Item Value Reference Range Interpretation Comments PHOSPHORUS (test code = 2365115334) 3.5 mg/dL 2.5-5 Lab Interpretation (test code = Normal 08701-7) [facility] ABSCESS [facility](AEROBIC/ANAEROBIC) 2020-05-28 12:35:00 Test Item Value Reference Range Interpretation Comments Aspirate or Abscess No aerobic/anaerobic Culture (test code = organisms isolated 89515-4) Gram stain (test code Occasional (Rare) = 664-3) Mononuclear cells [facility] METABOLIC PANEL (NA, K, CL, CO2, GLUCOSE, BUN, CREATININE, CA)2020-05-28 09:36:00 Test Item Value Reference Range Interpretation Comments NA (test code = 136 mmol/L 135-145 9151042800) K (test code = 4.3 mmol/L 3.5-5 0839219014) CL (test code = 102 mmol/L 98-108 4798716280) CO2 TOTAL (test code = 31 mmol/L 23-31 5701310277) AGAP (test code = 2-16 8919161061) BUN (test code = 25 mg/dL 7-23 H 9159606034) GLUCOSE (test code = 87 mg/dL 70-110 9426085638) CREATININE (test code = 0.65 mg/dL 0.6-1.25 9238167980) CALCIUM (test code = 8.2 mg/dL 8.6-10.6 L 9312771562) eGFR Calculation mL/min/1.73m2 (Non-) (test code = 7620832630) eGFR Calculation mL/min/1.73m2 () (test code = 3845262978) GILBERTO (test code = GILBERTO) Association of [...] tests). Lab Interpretation Abnormal (test code = 72282-5) [facility] 09:36:00 Test Item Value Reference Range Interpretation Comments MAGNESIUM (test code = 7703156815) 1.6 mg/dL 1.7-2.4 L Lab Interpretation (test code = Abnormal 26776-8) [facility]2020-[facility]05 09:36:00 Test Item Value Reference Range Interpretation Comments PHOSPHORUS (test code = 3268070859) 2.6 mg/dL 2.5-5 Lab Interpretation (test code = Normal 12133-8) [facility] (NA, K, CL, CO2, GLUCOSE, BUN, CREATININE, CA)2020-05-27 10:13:00 Test Item Value Reference Range Interpretation Comments NA (test code = 135 mmol/L 135-145 7059021822) K (test code = 3.9 mmol/L 3.5-5 0652246229) CL (test code = 103 mmol/L 98-108 0742601013) CO2 TOTAL (test code = 28 mmol/L 23-31 0936018159) AGAP (test code = 2-16 3549636052) BUN (test code = 20 mg/dL 7-23 8340199897) GLUCOSE (test code = 95 mg/dL 70-110 2132636719) CREATININE (test code = 0.67 mg/dL 0.6-1.25 8722507323) CALCIUM (test code = 8.2 mg/dL 8.6-10.6 L 0030083789) eGFR Calculation mL/min/1.73m2 (Non-) (test code = 7774579407) eGFR Calculation mL/min/1.73m2 () (test code = 2471692083) GILBERTO (test code = GILBERTO) Association of [...] tests). Lab Interpretation Abnormal (test code = 89002-8) [facility]2020-[facility]-04 10:13:00 Test Item Value Reference Range Interpretation Comments MAGNESIUM (test code = 5926581127) 1.5 mg/dL 1.7-2.4 L Lab Interpretation (test code = Abnormal 04664-0) [facility]2020-[facility]-04 10:13:00 Test Item Value Reference Range Interpretation Comments PHOSPHORUS (test code = 2509038086) 3.4 mg/dL 2.5-5 Lab Interpretation (test code = Normal 14052-6) [facility] CenterIR CHANGE OF ABSCESS [id number] 17:06:27 Successful removal of the left upper quadrant drainage catheter. Replacement of the right upper quadrant catheter into the most superiorsegment of the collection with a new 10 Martiniquais pigtail catheter.PLAN: This tube should be flushed with 10 of saline twice a day. ?We willcontinue to monitor the output of the catheter while the patient isin-house. If the patient is discharged prior to catheter removal, follow-upwith VIR is recommended in 7-10 ?days. This can be arranged by [id number]. Preliminary Report Dictated by Resident: Johnny Tilley [...] from those actually performing theprocedure. Please see [facility] for sedation time. RADIATION DOSE: 33.0 mGy. TECHNIQUE: The risks, benefits and alternativeswere discussed and informed consentwas obtained. Prior to beginning the procedure, [place] Protocol was usedto confirm the patient's identity [...] from those actually performing theprocedure. Please see [facility] for sedation time.RADIATION DOSE: 33.0 mGy.TECHNIQUE: The risks, benefits andalternatives were discussed and informed consentwas obtained. Prior to beginning the procedure, [place] Protocol was usedto confirm the patient's identity [...] of the collection with a new 10 Martiniquais pigtail catheter.PLAN: This tube should be flushed with 10 of saline twice a day. We willcontinue to monitor the output of the catheter while the patient isin-house. If the patient is discharged prior to catheter removal, follow-upwith VIR is recommended in 7-10 days. This can be arranged by [email or web address].Preliminary Report Dictated by Resident: Johnny Benitez, as teaching physician, was present during the entire procedure and/orduring the botello components.Nixon Damon MD., have reviewed this study and agree with theabove report.[facility] CenterIR ASPIRATION ABSCESS BULLA OR CYST BY [id number] 17:06:16 Successful ultrasound-guided aspiration of intrahepatic small [...] consentwas obtained. Prior to beginning the procedure, [place] Protocol was usedto confirm the patient's identity and planned procedure. Maximum sterilebarriers including cap, mask, hand hygiene, sterile gloves, sterile gown,large sterile drape and cutaneous antisepsis were used. The skin overlying the right mid abdomen was sterilely prepped, draped andinfiltrated with 1percent lidocaine. The targeted infrahepatic small collection was then accessed with [id number] micropuncture needle using imaging guidance which includedultrasound. The fluid collection was carefully aspirated. A steriledressing was applied. A sample of the fluid was sent for culture ESTIMATED BLOOD LOSS: Minimal. DISCHARGED TO: Recovery and then to inpatient unit. CONDITION: Stable. FINDINGS: Ultrasound imaging of the infrahepatic area demonstrated a very smallanechoic fluid collection. 1 mL yellowviscous-appearing fluid wasaspirated. [facility], Radiant Results Inft User - 05/26/2020 12:07 PM CDTEXAMINATION: IMAGE GUIDED PERCUTANEOUS INFRAHEPATIC FLUID COLLECTIONASPIRATIONHISTORY: 50 years-old; Male;peritoneal abscess.ATTENDEES: Attending radiologist: Nixon Perez; Resident: Dr. Johnny Tilley;Contributing VIR Fellow: Dr. Vance Stafford.SEDATION: No moderate sedation was utilized for this procedure.TECHNIQUE: The risks, benefits and alternatives were discussed and informed consentwas obtained. Prior to beginning the procedure, [place] Protocol was usedto confirm the patient's identity and planned procedure. Maximum sterilebarriers including cap, mask, hand hygiene, sterile gloves, sterile gown,large sterile drape and cutaneous antisepsis were used. The skin overlying the right mid abdomen was sterilely prepped, draped andinfiltrated with 1 percent lidocaine. The targeted infrahepatic small collection was then accessed with [id number] micropuncture needle using imaging guidance which includ [...] reviewed this study and agree with theabove report.[facility] (NA, K, CL, CO2, GLUCOSE, BUN, CREATININE, CA) 2020-05-26 10:13:00 Test Item Value Reference Range Interpretation Comments NA (test code = 135 mmol/L 135-145 2616506911) K (test code = 4.4 mmol/L 3.5-5 4087757394) CL (test code = 107 mmol/L 98-108 5477028491) CO2 TOTAL (test code = 23 mmol/L 23-31 1391613255) AGAP (test code = 2-16 2119441197) BUN (test code = 18 mg/dL 7-23 8736974943) GLUCOSE (test code = 101 mg/dL 70-110 8126792047) CREATININE (test code = 0.61 mg/dL 0.6-1.25 5052970090) CALCIUM (test code = 8.1 mg/dL 8.6-10.6 L 2836363750) eGFR Calculation mL/min/1.73m2 (Non-) (test code = 1203435156) eGFR Calculation mL/min/1.73m2 () (test code = 6841863671) GILBERTO (test code = GILBERTO) Association of [...] tests). Lab Interpretation Abnormal (test code = 17532-5) [facility]2020-[facility]-03 10:13:00 Test Item Value Reference Range Interpretation Comments MAGNESIUM (test code = 1986062073) 1.7 mg/dL 1.7-2.4 Lab Interpretation (test code = Normal 02833-1) [facility]2020-10-03 10:13:00 Test Item Value Reference Range Interpretation Comments PHOSPHORUS (test code = 0759217917) 3.4 mg/dL 2.5-5 Lab Interpretation (test code = Normal 04067-3) [facility] CenterXR [id number] 23:20:33 Positioning dictated draining the right upper [...] reviewed this study and agree with theabove report.[facility] (NA, K, CL, CO2, GLUCOSE, BUN, CREATININE, CA)2020-05-25 22:49:00 Test Item Value Reference Range Interpretation Comments NA (test code = 136 mmol/L 135-145 6376060646) K (test code = 4.5 mmol/L 3.5-5 3987633826) CL (test code = 105 mmol/L 98-108 7406828963) CO2 TOTAL (test code = 22 mmol/L 23-31 L 8976195601) AGAP (test code = 2-16 3218263379) BUN (test code = 24 mg/dL 7-23 H 9774665419) GLUCOSE (test code = 101 mg/dL 70-110 7641777962) CREATININE (test code = 0.74 mg/dL 0.6-1.25 8337842680) CALCIUM (test code = 8.6 mg/dL 8.6-10.6 9593835240) eGFR Calculation mL/min/1.73m2 (Non-) (test code = 7142029534) eGFR Calculation mL/min/1.73m2 () (test code = 6434225640) GILBERTO (test code = GILBERTO) Association of [...] tests). Lab Interpretation Abnormal (test code = 75680-7) [facility]2020-10-02 22:11:00 Test Item Value Reference Range Interpretation Comments MAGNESIUM (test code = 4300918496) 2.0 mg/dL 1.7-2.4 Lab Interpretation (test code = Normal 74072-5) [facility]2020-10-02 22:11:00 Test Item Value Reference Range Interpretation Comments PHOSPHORUS (test code = 5348613711) 3.1 mg/dL 2.5-5 Lab Interpretation (test code = Normal 41260-3) [facility]CB WITH [id number] 21:51:00 Test Item Value Reference Range Interpretation Comments WBC (test code = See_Comment [Automated 5090-2) message] The sy stem which generated this result transmitted reference range : 4.20 - 10.70 10*3/?L. The reference range was not used to interpret this result as normal/abnormal . RBC (test code = See_Comment [Automated 329-8) message] The sy stem which generated this [...] (test code = 53.1 fL 38.5-51.6 H 55584-8) RDW-CV (test code = 17.9 % 12.1-15.4 H 788-0) PLT (test code = See_Comment [Automated 777-3) message] The sy stem which generated this result transmitted reference range : 150 - 328 10*3/ ?L. The reference r meredith was not used to interpret this result as normal/abnormal . MPV (test code = 9.1 fL 9.8-13 L 95613-7) NRBC/100 WBC (test See_Comment [Automat ed code = 5136054252) message] The system which generated this result transmitted reference range : 0.0 - 10.0 /100 WBCs. The refer ence range was not u sed to interpret th is result as normal/abnormal . NRBC x10^3 (test code <0.01 See_Comment [Auto mated = 4105641298) message] The s ystem which generated this result transmitted reference range : 10*3/?L. The reference range was not used to interpret this result as normal/abnormal . GRAN MAT (NEUT) % 73.4 % (test code = 770-8) IMM GRAN % (test code 0.50 % = 1154593039) LYMPH % (test code = 17.9 % 736-9) MONO % (test code = 5.2 % 5905-5) EOS % (test code = 2.5 % 713-8) BASO % (test code = 0.5 % 706-2) GRAN MAT x10^3(ANC) 4.05 10*3/uL 1.99-6.95 (test code = 3721818327) IMM GRAN x10^3 (test 0.03 10*3/uL 0-0.06 code = 0077903419) LYMPH x10^3 (test code 0.99 10*3/uL 1.09-3.23 L = 731-0) MONO x10^3 (test code 0.29 10*3/uL 0.36-1.02 L = 742-7) EOS x10^3 (test code = 0.14 10*3/uL 0.06-0.53 711-2) BASO x10^3 (test code 0.03 10*3/uL 0.01-0.09 = 704-7) Lab Interpretation Abnormal (test code = 93671-7) [facility] METABOLIC PANEL (NA, K, CL, CO2, GLUCOSE, BUN, CREATININE, CA)2020-05-25 09:24:00 Test Item Value Reference Range Interpretation Comments NA (test code = 135 mmol/L 135-145 1544736912) K (test code = 5.3 mmol/L 3.5-5 H Slight 7355607726) hemolysis CL (test code = 104 mmol/L 98-108 3046866462) CO2 TOTAL (test code 24 mmol/L 23-31 = 6455647566) AGAP (test code = 2-16 2131220358) BUN (test code = 22 mg/dL 7-23 Slight 4763317299) hemolysis GLUCOSE (test code = 96 mg/dL 70-110 0192900960) CREATININE (test code 0.73 mg/dL 0.6-1.25 = 3355840102) CALCIUM (test code = 8.2 mg/dL 8.6-10.6 L 3636361731) eGFR Calculation mL/min/1.73m2 (Non-) (test code = 0344619391) eGFR Calculation mL/min/1.73m2 () (test code = 9896721238) GILBERTO (test code = GILBERTO) Association of [...] tests). Lab Interpretation Abnormal (test code = 85632-2) [facility] 09:24:00 Test Item Value Reference Range Interpretation Comments MAGNESIUM (test code = 7269390840) 2.3 mg/dL 1.7-2.4 Lab Interpretation (test code = Normal 93695-5) [facility]2020-10-02 09:24:00 Test Item Value Reference Range Interpretation Comments PHOSPHORUS (test code = 0551213877) 3.4 mg/dL 2.5-5 Lab Interpretation (test code = Normal 95403-2) [facility] (NA, K, CL, CO2, GLUCOSE, BUN, CREATININE, CA)2020-05-24 21:00:00 Test Item Value Reference Range Interpretation Comments NA (test code = 135 mmol/L 135-145 4085761968) K (test code = 4.3 mmol/L 3.5-5 5793656366) CL (test code = 102 mmol/L 98-108 6125620364) CO2 TOTAL (test code = 25 mmol/L 23-31 9556041559) AGAP (test code = 2-16 2050159499) BUN (test code = 20 mg/dL 7-23 3720084563) GLUCOSE (test code = 102 mg/dL 70-110 8843500676) CREATININE (test code 0.97 mg/dL 0.6-1.25 = 7492196098) CALCIUM (test code = 9.0 mg/dL 8.6-10.6 4425201691) eGFR Calculation mL/min/1.73m2 (Non-) (test code = 0423443033) eGFR Calculation mL/min/1.73m2 () (test code = 1417691722) GILBERTO (test code = GILBERTO) Association of [...] or urine or abnormalities in imaging tests). [facility] 21:00:00 Test Item Value Reference Range Interpretation Comments MAGNESIUM (test code = 2875807247) 1.5 mg/dL 1.7-2.4 L Lab Interpretation (test code = Abnormal 71622-5) [facility]2020-10-01 20:58:00 Test Item Value Reference Range Interpretation Comments PHOSPHORUS (test code = 8253049964) 3.3 mg/dL 2.5-5 Lab Interpretation (test code = Normal 36024-9) [facility] CenterCB with [id number] 11:31:00 Test Item Value Reference Range Interpretation Comments WBC (test code = See_Comment [Automated 4305-2) message] The sy stem which generated this result transmitted reference range : 4.20 - 10.70 10*3/?L. The reference range was not used to interpret this result as normal/abnormal . RBC (test code = See_Comment L [Automated 250-2) message] The sy stem which generated this [...] (test code = 51.9 fL 38.5-51.6 H 79961-9) RDW-CV (test code = 17.6 % 12.1-15.4 H 788-0) PLT (test code = See_Comment H [Automated 777-3) message] The sy stem which generated this result transmitted reference range : 150 - 328 10*3/ ?L. The reference r meredith was not used to interpret this result as normal/abnormal . MPV (test code = 9.0 fL 9.8-13 L 65394-4) NRBC/100 WBC (test See_Comment [Automat ed code = 6363804982) message] The system which generated this result transmitted reference range : 0.0 - 10.0 /100 WBCs. The refer ence range was not u sed to interpret th is result as normal/abnormal . NRBC x10^3 (test code <0.01 See_Comment [Auto mated = 1675206073) message] The s ystem which generated this result transmitted reference range : 10*3/?L. The reference range was not used to interpret this result as normal/abnormal . GRAN MAT (NEUT) % 66.0 % (test code = 770-8) IMM GRAN % (test code 0.20 % = 5035316718) LYMPH % (test code = 20.3 % 736-9) MONO % (test code = 10.4 % 5905-5) EOS % (test code = 2.6 % 713-8) BASO % (test code = 0.5 % 706-2) GRAN MAT x10^3(ANC) 4.33 10*3/uL 1.99-6.95 (test code = 6884967261) IMM GRAN x10^3 (test <0.03 0-0.06 code = 9526884974) LYMPH x10^3 (test code 1.33 10*3/uL 1.09-3.23 = 731-0) MONO x10^3 (test code 0.68 10*3/uL 0.36-1.02 = 742-7) EOS x10^3 (test code = 0.17 10*3/uL 0.06-0.53 711-2) BASO x10^3 (test code 0.03 10*3/uL 0.01-0.09 = 704-7) Lab Interpretation Abnormal (test code = 73054-6) [facility] CenterCT ABD[facility]EN PEL[facility] W [id number] 17:39:05 Since 05/19/2020 slight increase in size [...] perihepatic are unchanged with drains insitu as above.[facility] (NA, K, CL, CO2, Glucose, BUN, Creatinine, CA)2020-05-23 10:25:00 Test Item Value Reference Range Interpretation Comments NA (test code = 135 mmol/L 135-145 0958903566) K (test code = 3.7 mmol/L 3.5-5 9702911109) CL (test code = 105 mmol/L 98-108 7683284212) CO2 TOTAL (test code = 24 mmol/L 23-31 2410898072) AGAP (test code = 2-16 2582529333) BUN (test code = 19 mg/dL 7-23 6088140548) GLUCOSE (test code = 117 mg/dL 70-110 H 4645414057) CREATININE (test code = 0.74 mg/dL 0.6-1.25 5058362379) CALCIUM (test code = 7.3 mg/dL 8.6-10.6 L 0396427441) eGFR Calculation mL/min/1.73m2 (Non-) (test code = 0641987805) eGFR Calculation mL/min/1.73m2 () (test code = 7249239557) GILBERTO (test code = GILBERTO) Association of [...] tests). Lab Interpretation Abnormal (test code = 73754-1) [facility]CORON[facility]US COVID-19 [id number] 07:40:00 Test Item Value Reference Range Interpretation Comments SARS-CoV-2 Rapid ID NOW Not Detected Not Detected (test code = 96935-9) GILBERTO (test code = GILBERTO) ID NOW COVID-19 Assay is an isothermal nucleic acid amplification test intended for the qualitative detection of nucleic acid from SARS-CoV-2 viral RNA in nasopharyngeal (CABIN OUTFITTER) specimens. It is used under Emergency Use [...] indicated. Lab Interpretation Normal (test code = 46533-3) [facility] CenterUrinalysis2020-09-29 22:41:00 Test Item Value Reference Range Interpretation Comments APPEARANCE (test code = Hazy Clear A 0879791961) COLOR (test code = Yellow Yellow 7858525683) PH (test code = 4.8-8.0 2796249110) SP GRAVITY (test code = 1.003-1.030 4238607462) GLU U QUAL (test code = Normal Normal 3032414919) BLOOD (test code = Negative Negative 2349363120) KETONES (test code = Negative Negative 5172752726) PROTEIN (test code = 30 mg/dL Negative A 2887-8) UROBILIN (test code = Normal Normal 9394460605) BILIRUBIN (test code = Negative Negative 7112353269) NITRITE (test code = Negative Negative 5976741019) LEUK ROGER (test code = Negative Negative 5160227649) RBC/HPF (test code = See_Comment H [Autom ated message] 7282765632) The system [employer] generated this result transmitted ref erence range: 0 - 3 HP F. The reference range was not used to int erpret this result as normal/abnormal . WBC/HPF (test code = See_Comment H [Autom ated message] 6714914742) The system [employer] generated this result transmitted ref erence range: 0 - 5 HP F. The reference range was not used to int erpret this result as normal/abnormal . BACTERIA (test code = Negative Negative 8228617450) MUCOUS (test code = Moderate Negative LPF A 8212020662) SQ EPITH (test code = See_Comment [Auto mated message] 0199349488) The system [employer] generated this result transmitted ref erence range: <=2 HPF. The reference range was not used to int erpret this result as normal/abnormal . CA OXALATE (test code = See_Comment H [Au tomated message] 6522464298) The system [employer] generated this result transmitted ref erence range: <=1 HPF. The reference range was not used to int erpret this result as normal/abnormal . HYAL CAST (test code = See_Comment H [Aut omated message] 8604967144) The system [employer] generated this result transmitted ref erence range: <=2 LPF. The reference range was not used to int erpret this result as normal/abnormal . Lab Interpretation (test Abnormal code = 51809-3) [facility] Metabolic Panel (NA, K, CL, CO2, GLUCOSE, BUN, CREATININE, CA)2020-05-22 21:46:00 Test Item Value Reference Range Interpretation Comments NA (test code = 134 mmol/L 135-145 L 6806474759) K (test code = 5.0 mmol/L 3.5-5 6574680875) CL (test code = 103 mmol/L 98-108 6095825414) CO2 TOTAL (test code = 25 mmol/L 23-31 6400539091) AGAP (test code = 2-16 0097197026) BUN (test code = 24 mg/dL 7-23 H 5098487089) GLUCOSE (test code = 102 mg/dL 70-110 4981394871) CREATININE (test code = 0.87 mg/dL 0.6-1.25 8118763701) CALCIUM (test code = 9.2 mg/dL 8.6-10.6 0901173658) eGFR Calculation mL/min/1.73m2 (Non-) (test code = 4397132408) eGFR Calculation mL/min/1.73m2 () (test code = 9665370889) GILBERTO (test code = GILBERTO) Association of [...] tests). Lab Interpretation Abnormal (test code = 06054-3) [facility] CenterHepatic Function Panel (ALB, T.PRO, BILI T, BU/BC, ALT, AST, ALK PHOS)2020-05-22 21:46:00 Test Item Value Reference Range Interpretation Comments TOTAL BILI (test code = 3112512795) 0.4 mg/dL 0.1-1.1 BILI UNCON (test code = 9988658234) 0.2 mg/dL 0.1-1.1 BILI CONJ (test code = 4009828149) 0.0 mg/dL 0-0.3 T PROTEIN (test code = 1225391423) 6.5 g/dL 6.3-8.2 ALBUMIN (test code = 8060941176) 3.6 g/dL 3.5-5 ALK PHOS (test code = 7544043224) 96 U/L 34-122 ALTv (test code = 1742-6) 22 U/L 5-50 AST(SGOT) (test code = 6205320072) 28 U/L 13-40 Lab Interpretation (test code = Normal 55533-7) [facility] CenterLipase [id number] 21:46:00 Test Item Value Reference Range Interpretation Comments LIPASE (test code = 2568907428) 95 U/L 0-220 Lab Interpretation (test code = Normal 26308-4) [facility] CenteraPTT2020-09-29 21:46:00 Test Item Value Reference Range Interpretation Comments APTT Patient (test code = See_Comment [ Automated message] 3173-2) The system [employer] generated this result transmitted ref erence range: 26 - 36 Seconds. The re ference range was not u sed to interpret this result as normal/abnor mal. Lab Interpretation (test Normal code = 90407-7) [facility] CenterProthrombin Time (PT) / [id number] 21:46:00 Test Item Value Reference Range Interpretation [...] tions. Lab Interpretation (test Abnormal code = 38291-3) [facility] CenterCBC with [id number] 21:41:00 Test Item Value Reference Range Interpretation [...] (test code = 53.0 fL 38.5-51.6 H 83766-7) RDW-CV (test code = 17.6 % 12.1-15.4 H 788-0) PLT (test code = See_Comment H [Automated 777-3) message] The sy stem which generated this result transmitted reference range : 150 - 328 10*3/ ?L. The reference r meredith was not used to interpret this result as normal/abnormal . MPV (test code = 9.1 fL 9.8-13 L 56898-5) NRBC/100 WBC (test See_Comment [Automat ed code = 4539483667) message] The system which generated this result transmitted reference range : 0.0 - 10.0 /100 WBCs. The refer ence range was not u sed to interpret th is result as normal/abnormal . NRBC x10^3 (test code <0.01 See_Comment [Auto mated = 5087338869) message] The s ystem which generated this result transmitted reference range : 10*3/?L. The reference range was not used to interpret this result as normal/abnormal . GRAN MAT (NEUT) % 77.4 % (test code = 770-8) IMM GRAN % (test code 0.50 % = 2727041620) LYMPH % (test code = 15.8 % 736-9) MONO % (test code = 4.9 % 5905-5) EOS % (test code = 0.8 % 713-8) BASO % (test code = 0.6 % 706-2) GRAN MAT x10^3(ANC) 5.04 10*3/uL 1.99-6.95 (test code = 1965657452) IMM GRAN x10^3 (test 0.03 10*3/uL 0-0.06 code = 3744698160) LYMPH x10^3 (test code 1.03 10*3/uL 1.09-3.23 L = 731-0) MONO x10^3 (test code 0.32 10*3/uL 0.36-1.02 L = 742-7) EOS x10^3 (test code = 0.05 10*3/uL 0.06-0.53 L 711-2) BASO x10^3 (test code 0.04 10*3/uL 0.01-0.09 = 704-7) Lab Interpretation Abnormal (test code = 70722-7) [facility] [id number] 21:19:32CHEST ONE VIEW HISTORY: ?Weakness TECHNIQUE: ?AP [...] the left costophrenic angle suggests a leftpleural effusion.[facility]ID [facility]) 2020-05-20 10:09:00 Test Item Value Reference Range Interpretation Comments SARS-CoV-2 Rapid ID NOW Not Detected Not Detected (test code = 01383-4) GILBERTO (test code = GILBERTO) ID NOW COVID-19 Assay is an isothermal nucleic acid amplification test intended for the qualitative detection of nucleic acid from SARS-CoV-2 viral RNA in nasopharyngeal (CABIN OUTFITTER) specimens. It is used under Emergency Use [...] indicated. Lab Interpretation Normal (test code = 52272-2) [facility]2020[facility] 10:07:00 Test Item Value Reference Range Interpretation Comments APPEARANCE (test code = Clear Clear 5554298263) COLOR (test code = Yellow Yellow 5131532303) PH (test code = 4.8-8.0 6849229221) SP GRAVITY (test code = 1.003-1.030 H 0874317095) GLU U QUAL (test code = Normal Normal 3270115445) BLOOD (test code = Negative Negative 7607267740) KETONES (test code = Negative Negative 8499503304) PROTEIN (test code = Negative Negative 2887-8) UROBILIN (test code = Normal Normal 0265241747) BILIRUBIN (test code = Negative Negative 1494936796) NITRITE (test code = Negative Negative 4426011164) LEUK ROGER (test code = Negative Negative 9780297343) RBC/HPF (test code = See_Comment [Autom ated message] 4411636000) The system [employer] generated this result transmitted ref erence range: 0 - 3 HP F. The reference range was not used to int erpret this result as normal/abnormal . WBC/HPF (test code = See_Comment [Autom ated message] 5051098656) The system [employer] generated this result transmitted ref erence range: 0 - 5 HP F. The reference range was not used to int erpret this result as normal/abnormal . BACTERIA (test code = Negative Negative 4177080264) MUCOUS (test code = Slight Negative LPF A 2416152635) SQ EPITH (test code = See_Comment [Auto mated message] 7252630270) The system [employer] generated this result transmitted ref erence range: <=2 HPF. The reference range was not used to int erpret this result as normal/abnormal . HYAL CAST (test code = See_Comment H [Aut omated message] 6170044182) The system [employer] generated this result transmitted ref erence range: <=2 LPF. The reference range was not used to int erpret this result as normal/abnormal . Lab Interpretation (test Abnormal code = 67944-0) [facility]CT A[facility] PEL[facility] W [id number] 04:28:40Impression: 1. Multiple rim-enhancing fluid and gas [...] effusions, possiblyloculated on the left. RL: 2824AFC: [id number] End of Report Exam: CT Abdomen and [...] pleural effusions, possiblyloculated on the left.RL: 2824AFC: [id number] of Report [facility] [id number] 03:44:00 Test Item Value Reference Range Interpretation Comments TROPONIN I (test 0.001 ng/mL See_Comment [Automated code = 8577327636) message] The system which generated this result [...] ? Lab Interpretation Normal (test code = 16096-2) [facility]. METABOLIC PANEL (04626)2020-05-20 03:33:00 Test Item Value Reference Range Interpretation Comments NA (test code = 138 mmol/L 135-145 3456413431) K (test code = 5.3 mmol/L 3.5-5 H 0544644454) CL (test code = 100 mmol/L 98-108 9385102380) CO2 TOTAL (test code = 28 mmol/L 23-31 1102131476) AGAP (test code = 2-16 5771795604) BUN (test code = 27 mg/dL 7-23 H 6107995928) GLUCOSE (test code = 90 mg/dL 70-110 4185207707) CREATININE (test code = 1.25 mg/dL 0.6-1.25 5655362619) TOTAL BILI (test code = 0.2 mg/dL 0.1-1.2 4354242640) CALCIUM (test code = 9.9 mg/dL 8.6-10.6 2655925802) T PROTEIN (test code = 6.8 g/dL 6.3-8.2 2892737807) ALBUMIN (test code = 3.7 g/dL 3.5-5 1113899116) ALK PHOS (test code = 122 U/L 34-122 3098130831) ALTv (test code = 26 U/L 5-50 1742-6) AST(SGOT) (test code = 24 U/L 13-40 7678540166) eGFR Calculation mL/min/1.73m2 (Non-) (test code = 8709348626) eGFR Calculation mL/min/1.73m2 () (test code = 4642097349) GILBERTO (test code = GILBERTO) Association of [...] tests). Lab Interpretation Abnormal (test code = 57401-9) [facility]LIPASE2020-[facility] 03:33:00 Test Item Value Reference Range Interpretation Comments LIPASE (test code = 4462519801) 223 U/L 0-220 H Lab Interpretation (test code = Abnormal 49963-8) [facility] CenterMAGNESIUM2020-09-27 03:33:00 Test Item Value Reference Range Interpretation Comments MAGNESIUM (test code = 5801796248) 1.7 mg/dL 1.7-2.4 Lab Interpretation (test code = Normal 35867-1) [facility] CenterCB WITH [id number] 03:17:00 Test Item Value Reference Range Interpretation Comments WBC (test code = See_Comment [Automated 3590-2) message] The sy stem which generated this [...] RDW-SD (test code = 49.9 fL 38.5-51.6 37551-3) RDW-CV (test code = 17.2 % 12.1-15.4 H 788-0) PLT (test code = See_Comment H [Automated 777-3) message] The sy stem which generated this result transmitted reference range : 150 - 328 10*3/ ?L. The reference r meredith was not used to interpret this result as normal/abnormal . MPV (test code = 9.3 fL 9.8-13 L 51481-5) NRBC/100 WBC (test See_Comment [Automat ed code = 8549375719) message] The system which generated this result transmitted reference range : 0.0 - 10.0 /100 WBCs. The refer ence range was not u sed to interpret th is result as normal/abnormal . NRBC x10^3 (test code <0.01 See_Comment [Auto mated = 8990342990) message] The s ystem which generated this result transmitted reference range : 10*3/?L. The reference range was not used to interpret this result as normal/abnormal . GRAN MAT (NEUT) % 78.5 % (test code = 770-8) IMM GRAN % (test code 0.50 % = 0919248604) LYMPH % (test code = 11.6 % 736-9) MONO % (test code = 8.4 % 5905-5) EOS % (test code = 0.6 % 713-8) BASO % (test code = 0.4 % 706-2) GRAN MAT x10^3(ANC) 6.16 10*3/uL 1.99-6.95 (test code = 1747668301) IMM GRAN x10^3 (test 0.04 10*3/uL 0-0.06 code = 2109360530) LYMPH x10^3 (test code 0.91 10*3/uL 1.09-3.23 L = 731-0) MONO x10^3 (test code 0.66 10*3/uL 0.36-1.02 = 742-7) EOS x10^3 (test code = 0.05 10*3/uL 0.06-0.53 L 711-2) BASO x10^3 (test code 0.03 10*3/uL 0.01-0.09 = 704-7) Lab Interpretation Abnormal (test code = 24309-4) [facility] CenterB[facility]UID [facility](AEROBIC/ANAEROBIC) 2020-05-10 15:19:00 Test Item Value Reference Range Interpretation Comments BODY FLUID CULT 2+ Clostridioides (test code = (Clostridium) difficile 611-4) Gram stain (test Few PMNs or Mononuclear code = 664-3) cells observed [facility] CenterBasi Metabolic Panel (NA, K, CL, CO2, GLUCOSE, BUN, CREATININE, CA)2020-05-10 10:27:00 Test Item Value Reference Range Interpretation Comments NA (test code = 132 mmol/L 135-145 L 5796683066) K (test code = 4.0 mmol/L 3.5-5 9148324986) CL (test code = 97 mmol/L 98-108 L 1855219312) CO2 TOTAL (test code = 28 mmol/L 23-31 0519000083) AGAP (test code = 2-16 4702234943) BUN (test code = 12 mg/dL 7-23 7147720446) GLUCOSE (test code = 128 mg/dL 70-110 H 6452141397) CREATININE (test code = 0.63 mg/dL 0.6-1.25 2204834084) CALCIUM (test code = 8.7 mg/dL 8.6-10.6 6144622384) eGFR Calculation mL/min/1.73m2 (Non-) (test code = 9651846908) eGFR Calculation mL/min/1.73m2 () (test code = 3048955532) GILBERTO (test code = GILBERTO) Association of [...] tests). Lab Interpretation Abnormal (test code = 40905-1) [facility] CenterMagnesium [id number] 10:27:00 Test Item Value Reference Range Interpretation Comments MAGNESIUM (test code = 3659589403) 1.7 mg/dL 1.7-2.4 Lab Interpretation (test code = Normal 04480-2) [facility] CenterPhosphorus [id number] 10:27:00 Test Item Value Reference Range Interpretation Comments PHOSPHORUS (test code = 3745800188) 3.4 mg/dL 2.5-5 Lab Interpretation (test code = Normal 38950-6) [facility] with Euqvbbovxgrd7081-79-85 10:03:00 Test Item Value Reference Range Interpretation [...] RDW-SD (test code = 47.3 fL 38.5-51.6 15804-0) RDW-CV (test code = 15.7 % 12.1-15.4 H 788-0) PLT (test code = See_Comment H [Automated 777-3) message] The sy stem which generated this result transmitted reference range : 150 - 328 10*3/ ?L. The reference r meredith was not used to interpret this result as normal/abnormal . MPV (test code = 8.9 fL 9.8-13 L 18949-8) NRBC/100 WBC (test See_Comment [Automat ed code = 7623630125) message] The system which generated this result transmitted reference range : 0.0 - 10.0 /100 WBCs. The refer ence range was not u sed to interpret th is result as normal/abnormal . NRBC x10^3 (test code <0.01 See_Comment [Auto mated = 6692419037) message] The s ystem which generated this result transmitted reference range : 10*3/?L. The reference range was not used to interpret this result as normal/abnormal . GRAN MAT (NEUT) % 80.0 % (test code = 770-8) IMM GRAN % (test code 0.50 % = 8419578194) LYMPH % (test code = 11.8 % 736-9) MONO % (test code = 6.6 % 5905-5) EOS % (test code = 0.8 % 713-8) BASO % (test code = 0.3 % 706-2) GRAN MAT x10^3(ANC) 6.98 10*3/uL 1.99-6.95 H (test code = 8125717388) IMM GRAN x10^3 (test 0.04 10*3/uL 0-0.06 code = 2824539276) LYMPH x10^3 (test code 1.03 10*3/uL 1.09-3.23 L = 731-0) MONO x10^3 (test code 0.58 10*3/uL 0.36-1.02 = 742-7) EOS x10^3 (test code = 0.07 10*3/uL 0.06-0.53 711-2) BASO x10^3 (test code 0.03 10*3/uL 0.01-0.09 = 704-7) Lab Interpretation Abnormal (test code = 01270-0) [facility] Metabolic Panel (NA, K, CL, CO2, GLUCOSE, BUN, CREATININE, CA)2020-05-09 11:07:00 Test Item Value Reference Range Interpretation Comments NA (test code = 133 mmol/L 135-145 L 7219844738) K (test code = 4.4 mmol/L 3.5-5 5906844626) CL (test code = 100 mmol/L 98-108 7177066508) CO2 TOTAL (test code = 25 mmol/L 23-31 4212786589) AGAP (test code = 2-16 7811331803) BUN (test code = 14 mg/dL 7-23 7387422361) GLUCOSE (test code = 93 mg/dL 70-110 0211427855) CREATININE (test code = 0.66 mg/dL 0.6-1.25 9550637440) CALCIUM (test code = 8.3 mg/dL 8.6-10.6 L 2240508358) eGFR Calculation mL/min/1.73m2 (Non-) (test code = 6936537062) eGFR Calculation mL/min/1.73m2 () (test code = 2627946339) GILBERTO (test code = GILBERTO) Association of [...] tests). Lab Interpretation Abnormal (test code = 53981-3) [facility] CenterMagnesium [id number] 11:07:00 Test Item Value Reference Range Interpretation Comments MAGNESIUM (test code = 4066088461) 1.8 mg/dL 1.7-2.4 Lab Interpretation (test code = Normal 94413-2) [facility] CenterPhosphorus [id number] 11:07:00 Test Item Value Reference Range Interpretation Comments PHOSPHORUS (test code = 1050274292) 3.2 mg/dL 2.5-5 Lab Interpretation (test code = Normal 00018-9) [facility] with Fzlxjymtzass0377-13-89 10:42:00 Test Item Value Reference Range Interpretation [...] RDW-SD (test code = 45.9 fL 38.5-51.6 55087-7) RDW-CV (test code = 15.4 % 12.1-15.4 788-0) PLT (test code = See_Comment H [Automated 777-3) message] The sy stem which generated this result transmitted reference range : 150 - 328 10*3/ ?L. The reference r meredith was not used to interpret this result as normal/abnormal . MPV (test code = 8.9 fL 9.8-13 L 62881-8) NRBC/100 WBC (test See_Comment [Automat ed code = 7697404996) message] The system which generated this result transmitted reference range : 0.0 - 10.0 /100 WBCs. The refer ence range was not u sed to interpret th is result as normal/abnormal . NRBC x10^3 (test code <0.01 See_Comment [Auto mated = 1699047879) message] The s ystem which generated this result transmitted reference range : 10*3/?L. The reference range was not used to interpret this result as normal/abnormal . GRAN MAT (NEUT) % 77.7 % (test code = 770-8) IMM GRAN % (test code 0.50 % = 3311209210) LYMPH % (test code = 11.8 % 736-9) MONO % (test code = 8.4 % 5905-5) EOS % (test code = 1.4 % 713-8) BASO % (test code = 0.2 % 706-2) GRAN MAT x10^3(ANC) 6.48 10*3/uL 1.99-6.95 (test code = 3743822832) IMM GRAN x10^3 (test 0.04 10*3/uL 0-0.06 code = 4570205310) LYMPH x10^3 (test code 0.98 10*3/uL 1.09-3.23 L = 731-0) MONO x10^3 (test code 0.70 10*3/uL 0.36-1.02 = 742-7) EOS x10^3 (test code = 0.12 10*3/uL 0.06-0.53 711-2) BASO x10^3 (test code <0.03 0.01-0.09 = 704-7) Lab Interpretation Abnormal (test code = 19721-0) [facility] Metabolic Panel (NA, K, CL, CO2, GLUCOSE, BUN, CREATININE, CA)2020-05-08 12:18:00 Test Item Value Reference Range Interpretation Comments NA (test code = 136 mmol/L 135-145 9440464571) K (test code = 4.1 mmol/L 3.5-5 8966985302) CL (test code = 102 mmol/L 98-108 1749108527) CO2 TOTAL (test code = 26 mmol/L 23-31 8368573772) AGAP (test code = 2-16 5299051461) BUN (test code = 18 mg/dL 7-23 0354190821) GLUCOSE (test code = 99 mg/dL 70-110 3762419673) CREATININE (test code = 0.63 mg/dL 0.6-1.25 6655382984) CALCIUM (test code = 8.4 mg/dL 8.6-10.6 L 7549549376) eGFR Calculation mL/min/1.73m2 (Non-) (test code = 9377075381) eGFR Calculation mL/min/1.73m2 () (test code = 0646771844) GILBERTO (test code = GILBERTO) Association of [...] tests). Lab Interpretation Abnormal (test code = 22153-5) [facility] Iwefq2832-74-40 12:18:00 Test Item Value Reference Range Interpretation Comments MAGNESIUM (test code = 3507432289) 1.8 mg/dL 1.7-2.4 Lab Interpretation (test code = Normal 46620-6) [facility] CenterPh[facility]orus Rmiak5372-72-09 12:18:00 Test Item Value Reference Range Interpretation Comments PHOSPHORUS (test code = 0892339776) 3.2 mg/dL 2.5-5 Lab Interpretation (test code = Normal 83694-5) [facility] with Ijhctdtvhwsh1690-66-33 11:50:00 Test Item Value Reference Range Interpretation [...] RDW-SD (test code = 46.9 fL 38.5-51.6 43618-0) RDW-CV (test code = 15.2 % 12.1-15.4 788-0) PLT (test code = See_Comment H [Automated 777-3) message] The sy stem which generated this result transmitted reference range : 150 - 328 10*3/ ?L. The reference r meredith was not used to interpret this result as normal/abnormal . MPV (test code = 9.0 fL 9.8-13 L 62558-7) NRBC/100 WBC (test See_Comment [Automat ed code = 6431200586) message] The system which generated this result transmitted reference range : 0.0 - 10.0 /100 WBCs. The refer ence range was not u sed to interpret th is result as normal/abnormal . NRBC x10^3 (test code <0.01 See_Comment [Auto mated = 1073690256) message] The s ystem which generated this result transmitted reference range : 10*3/?L. The reference range was not used to interpret this result as normal/abnormal . GRAN MAT (NEUT) % 76.3 % (test code = 770-8) IMM GRAN % (test code 0.70 % = 5609517301) LYMPH % (test code = 13.3 % 736-9) MONO % (test code = 8.4 % 5905-5) EOS % (test code = 1.1 % 713-8) BASO % (test code = 0.2 % 706-2) GRAN MAT x10^3(ANC) 6.93 10*3/uL 1.99-6.95 (test code = 3535209678) IMM GRAN x10^3 (test 0.06 10*3/uL 0-0.06 code = 2056863198) LYMPH x10^3 (test code 1.21 10*3/uL 1.09-3.23 = 731-0) MONO x10^3 (test code 0.76 10*3/uL 0.36-1.02 = 742-7) EOS x10^3 (test code = 0.10 10*3/uL 0.06-0.53 711-2) BASO x10^3 (test code <0.03 0.01-0.09 = 704-7) Lab Interpretation Abnormal (test code = 49151-0) [facility]IR [facility] BY [facility]HETER PERITONEAL OR GOSRPXDKIIGOATS1491-90-11 13:09:04 Technically successful drainage catheter placement in the right upperquadrant, left upper quadrant,and right lower quadrant collections. Preliminary Report Dictated by Resident: Sukhjinder Gregory I, Rach Prince MD., have reviewed this study and agree with theabove report. Marisol, as teaching physician,was present during the entire [...] of the tract was performed. A 14 Martiniquais locking pigtail michael inagecatheter was placed in the collection and samples were sent for laboratoryanalysis. The left upper quadrant collection was identified under ultrasound and CTguidance. A 17-gauge coaxial needle wasadvanced into the collection. AnAmplatz wire was advanced into the collection over the needle and serialdilatation of the tract was performed. A 12 Martiniquais locking pigtail drainagecatheter was placed within the collection and samples were sent forlaboratory analysis. The right lower quadrant collectionwas identified under ultrasound and CTguidance. A 17-gauge coaxial needle was advanced into the colle ction.Serial dilatation was performed over the Amplatz wire. A 14 Martiniquais lockingpigtail drainage catheter was placed within the collection. Proper positioning was confirmed with postprocedural CT imaging of theabdomen and pelvis. The catheters were sutured to the skin. ESTIMATED BLOOD LOSS: <3cc. CONDITION: Stable. FINDINGS: Initial CT images demonstrate multiple abscesses in the left upper, rightupper, and right lower quadrants. [facility], Radiant Results Inft User - 05/07/2020 8:10 [...] was obtained. Prior to beginning the procedure, [place] Protocolwas performed to confirm the patient's identity [...] of the tract was performed. A 14 Martiniquais lockingpigtail drainagecatheter was placed in the collection and samples were sent for laboratoryanalysis.The left upper quadrant collection was identified under ultrasound and CTguidance. A 17-gauge coaxial needle was advanced into the collection. AnAmplatz wire was advanced into the collection over the needle and serialdilatation of the tract was performed. A 12 Martiniquais locking pigtail drainagecatheter wasplaced within the collection and samples were sent forlaboratory analysis.The right lower quadrant collection was identified under ultrasound and CTguidance. A 17-gauge coaxial needle was advanced intothe collection.Serial dilatation was performed over the Amplatz wire. A 14 Martiniquais lockingpigtail drainage catheter was placed within the [...] components.[facility] Metabolic Panel (NA, K, CL, CO2, GLUCOSE, BUN, CREATININE, CA) 2020-05-07 11:49:00 Test Item Value Reference Range Interpretation Comments NA (test code = 132 mmol/L 135-145 L 6127709554) K (test code = 4.0 mmol/L 3.5-5 0348758343) CL (test code = 101 mmol/L 98-108 3230409057) CO2 TOTAL (test code = 23 mmol/L 23-31 4393089575) AGAP (test code = 2-16 8894196268) BUN (test code = 21 mg/dL 7-23 9810751316) GLUCOSE (test code = 98 mg/dL 70-110 0095338325) CREATININE (test code = 0.65 mg/dL 0.6-1.25 6140580944) CALCIUM (test code = 8.4 mg/dL 8.6-10.6 L 6838161909) eGFR Calculation mL/min/1.73m2 (Non-) (test code = 6585883680) eGFR Calculation mL/min/1.73m2 () (test code = 6087468510) GILBERTO (test code = GILBERTO) Association of [...] tests). Lab Interpretation Abnormal (test code = 98226-0) [facility] [id number] 11:49:00 Test Item Value Reference Range Interpretation Comments MAGNESIUM (test code = 3864299869) 1.5 mg/dL 1.7-2.4 L Lab Interpretation (test code = Abnormal 38407-3) [facility] Zbfjb6734-76-15 11:49:00 Test Item Value Reference Range Interpretation Comments PHOSPHORUS (test code = 1302635863) 2.7 mg/dL 2.5-5 Lab Interpretation (test code = Normal 04923-3) [facility] with Awvjacsolexq4322-01-21 11:31:00 Test Item Value Reference Range Interpretation [...] RDW-SD (test code = 47.2 fL 38.5-51.6 15890-6) RDW-CV (test code = 15.3 % 12.1-15.4 788-0) PLT (test code = See_Comment H [Automated 777-3) message] The sy stem which generated this result transmitted reference range : 150 - 328 10*3/ ?L. The reference r meredith was not used to interpret this result as normal/abnormal . MPV (test code = 9.4 fL 9.8-13 L 91717-6) NRBC/100 WBC (test See_Comment [Automat ed code = 3742750863) message] The system which generated this result transmitted reference range : 0.0 - 10.0 /100 WBCs. The refer ence range was not u sed to interpret th is result as normal/abnormal . NRBC x10^3 (test code <0.01 See_Comment [Auto mated = 8451869092) message] The s ystem which generated this result transmitted reference range : 10*3/?L. The reference range was not used to interpret this result as normal/abnormal . GRAN MAT (NEUT) % 81.1 % (test code = 770-8) IMM GRAN % (test code 0.80 % = 9765328384) LYMPH % (test code = 9.5 % 736-9) MONO % (test code = 7.8 % 5905-5) EOS % (test code = 0.6 % 713-8) BASO % (test code = 0.2 % 706-2) GRAN MAT x10^3(ANC) 8.26 10*3/uL 1.99-6.95 H (test code = 6338186012) IMM GRAN x10^3 (test 0.08 10*3/uL 0-0.06 H code = 5568560071) LYMPH x10^3 (test code 0.97 10*3/uL 1.09-3.23 L = 731-0) MONO x10^3 (test code 0.79 10*3/uL 0.36-1.02 = 742-7) EOS x10^3 (test code = 0.06 10*3/uL 0.06-0.53 711-2) BASO x10^3 (test code <0.03 0.01-0.09 = 704-7) Lab Interpretation Abnormal (test code = 26346-9) [facility] Metabolic Panel (NA, K, CL, CO2, GLUCOSE, BUN, CREATININE, CA)2020-05-06 15:02:00 Test Item Value Reference Range Interpretation Comments NA (test code = 134 mmol/L 135-145 L 9309923945) K (test code = 4.3 mmol/L 3.5-5 9405598483) CL (test code = 105 mmol/L 98-108 5106883761) CO2 TOTAL (test code = 23 mmol/L 23-31 9137557034) AGAP (test code = 2-16 4321050789) BUN (test code = 18 mg/dL 7-23 2692063491) GLUCOSE (test code = 96 mg/dL 70-110 2114117157) CREATININE (test code = 0.67 mg/dL 0.6-1.25 9960753941) CALCIUM (test code = 8.5 mg/dL 8.6-10.6 L 5507595869) eGFR Calculation mL/min/1.73m2 (Non-) (test code = 4665244250) eGFR Calculation mL/min/1.73m2 () (test code = 7806618044) GILBERTO (test code = GILBERTO) Association of [...] tests). Lab Interpretation Abnormal (test code = 94112-7) [facility] Myzff5854-35-96 15:02:00 Test Item Value Reference Range Interpretation Comments MAGNESIUM (test code = 9444168601) 1.8 mg/dL 1.7-2.4 Lab Interpretation (test code = Normal 31289-8) [facility] Igfzh0846-28-44 15:02:00 Test Item Value Reference Range Interpretation Comments PHOSPHORUS (test code = 1320729622) 3.2 mg/dL 2.5-5 Lab Interpretation (test code = Normal 02602-3) [facility] with Qzlrjptdrvhy6143-99-17 10:41:00 Test Item Value Reference Range Interpretation [...] RDW-SD (test code = 47.0 fL 38.5-51.6 29416-3) RDW-CV (test code = 15.2 % 12.1-15.4 788-0) PLT (test code = See_Comment H [Automated 777-3) message] The sy stem which generated this result transmitted reference range : 150 - 328 10*3/ ?L. The reference r meredith was not used to interpret this result as normal/abnormal . MPV (test code = 9.1 fL 9.8-13 L 30661-4) NRBC/100 WBC (test See_Comment [Automat ed code = [id number]) message] The system which generated this result transmitted reference range : 0.0 - 10.0 /100 WBCs. The refer ence range was not u sed to interpret th is result as normal/abnormal . NRBC x10^3 (test code <0.01 See_Comment [Auto mated = 7359436721) message] The s ystem which generated this result transmitted reference range : 10*3/?L. The reference range was not used to interpret this result as normal/abnormal . GRAN MAT (NEUT) % 77.3 % (test code = 770-8) IMM GRAN % (test code 0.60 % = 3068474550) LYMPH % (test code = 11.6 % 736-9) MONO % (test code = 9.5 % 5905-5) EOS % (test code = 0.8 % 713-8) BASO % (test code = 0.2 % 706-2) GRAN MAT x10^3(ANC) 6.69 10*3/uL 1.99-6.95 (test code = 9291405286) IMM GRAN x10^3 (test 0.05 10*3/uL 0-0.06 code = 7815191085) LYMPH x10^3 (test code 1.00 10*3/uL 1.09-3.23 L = 731-0) MONO x10^3 (test code 0.82 10*3/uL 0.36-1.02 = 742-7) EOS x10^3 (test code = 0.07 10*3/uL 0.06-0.53 711-2) BASO x10^3 (test code <0.03 0.01-0.09 = 704-7) Lab Interpretation Abnormal (test code = 32024-1) [facility] (in units), 1 Units 2020-05-05 15:59:33 Test Item Value Reference Range Interpretation Comments Cross Match Result Compatible (test code = 4409) ISBT Blood Type Code (test code = 367869) Unit Blood Type (test O Pos code = 4410) Unit Number (test [id number] code = 4411) Blood Expiration Date & Time (test code = 227597) Status Information Issued (test code = 4412) Product Red Blood Cells Identification (test code = 4413) Product Code (test [id number] Performed at [facility] code = 4414) Laboratory Services - [facility] Blood Jdvw235 [facility] [address]Ezqm Free: [phone] A No. [id number] [facility] CenterType and Screen - ONCE [id number] 11:34:29 Test Item Value Reference Range Interpretation Comments ABO & RH (test code O POSITIVE Performe d at [facility] = 20) Laboratory Serv [facility] Blood [facility]3 01 [facility] [address]Rgcz Free: [phone] A No. [id number] IAT (test code = Negative Performed a t [facility] 1185) Laboratory Serv [facility] Blood [facility]3 01 [facility] [address]Kpil Free: [phone] A No. [id number] [facility]PREALBUMIN2020-09-12 10:19:00 Test Item Value Reference Range Interpretation Comments PALB (test code = 97774-9) 8.0 mg/dL 18-45 L Lab Interpretation (test code = Abnormal 38463-2) [facility] CenterBasi Metabolic Panel (NA, K, CL, CO2, GLUCOSE, BUN, CREATININE, CA)2020-05-05 10:12:00 Test Item Value Reference Range Interpretation Comments NA (test code = 135 mmol/L 135-145 5641673296) K (test code = 4.1 mmol/L 3.5-5 8342745951) CL (test code = 106 mmol/L 98-108 9737030453) CO2 TOTAL (test code = 22 mmol/L 23-31 L 9822748544) AGAP (test code = 2-16 7169554402) BUN (test code = 25 mg/dL 7-23 H 3791217416) GLUCOSE (test code = 91 mg/dL 70-110 3042560148) CREATININE (test code = 0.68 mg/dL 0.6-1.25 1948012588) CALCIUM (test code = 7.4 mg/dL 8.6-10.6 L 3135880452) eGFR Calculation mL/min/1.73m2 (Non-) (test code = 6826541620) eGFR Calculation mL/min/1.73m2 () (test code = 2075534819) GILBERTO (test code = GILBERTO) Association of [...] tests). Lab Interpretation Abnormal (test code = 25543-3) [facility] CenterMagnesium Gszla9624-12-90 10:12:00 Test Item Value Reference Range Interpretation Comments MAGNESIUM (test code = 2002235265) 1.8 mg/dL 1.7-2.4 Lab Interpretation (test code = Normal 79180-7) [facility] CenterPhosphorus [id number] 10:12:00 Test Item Value Reference Range Interpretation Comments PHOSPHORUS (test code = 4410153152) 3.1 mg/dL 2.5-5 Lab Interpretation (test code = Normal 32079-8) [facility] with Icqqtyzwxlgk1415-58-08 09:18:00 Test Item Value Reference Range Interpretation [...] RDW-SD (test code = 48.4 fL 38.5-51.6 81322-7) RDW-CV (test code = 15.7 % 12.1-15.4 H 788-0) PLT (test code = See_Comment H [Automated 777-3) message] The sy stem which generated this result transmitted reference range : 150 - 328 10*3/ ?L. The reference r meredith was not used to interpret this result as normal/abnormal . MPV (test code = 9.1 fL 9.8-13 L 87301-7) NRBC/100 WBC (test See_Comment [Automat ed code = 5142557068) message] The system which generated this result transmitted reference range : 0.0 - 10.0 /100 WBCs. The refer ence range was not u sed to interpret th is result as normal/abnormal . NRBC x10^3 (test code <0.01 See_Comment [Auto mated = 2165147901) message] The s ystem which generated this result transmitted reference range : 10*3/?L. The reference range was not used to interpret this result as normal/abnormal . GRAN MAT (NEUT) % 79.0 % (test code = 770-8) IMM GRAN % (test code 0.70 % = 5617361642) LYMPH % (test code = 10.6 % 736-9) MONO % (test code = 8.9 % 5905-5) EOS % (test code = 0.5 % 713-8) BASO % (test code = 0.3 % 706-2) GRAN MAT x10^3(ANC) 7.81 10*3/uL 1.99-6.95 H (test code = 7694187148) IMM GRAN x10^3 (test 0.07 10*3/uL 0-0.06 H code = 3102687700) LYMPH x10^3 (test code 1.05 10*3/uL 1.09-3.23 L = 731-0) MONO x10^3 (test code 0.88 10*3/uL 0.36-1.02 = 742-7) EOS x10^3 (test code = 0.05 10*3/uL 0.06-0.53 L 711-2) BASO x10^3 (test code 0.03 10*3/uL 0.01-0.09 = 704-7) Lab Interpretation Abnormal (test code = 47035-8) [facility] CenterURINALYSIS2020-09-12 06:03:00 Test Item Value Reference Range Interpretation Comments APPEARANCE (test code = Hazy Clear A 3191263469) COLOR (test code = Yellow Yellow 9852298721) PH (test code = 4.8-8.0 9851809612) SP GRAVITY (test code = 1.003-1.030 H 3463934710) GLU U QUAL (test code = Normal Normal 7174538477) BLOOD (test code = Negative Negative 4673109259) KETONES (test code = Negative Negative 1636702981) PROTEIN (test code = Negative Negative 2887-8) UROBILIN (test code = Normal Normal 6619270605) BILIRUBIN (test code = Negative Negative 3028973029) NITRITE (test code = Negative Negative 4847865235) LEUK ROGER (test code = Negative Negative 4279248211) RBC/HPF (test code = See_Comment H [Autom ated message] 4611748583) The system [employer] generated this result transmitted ref erence range: 0 - 3 HP F. The reference range was not used to int erpret this result as normal/abnormal . WBC/HPF (test code = See_Comment [Autom ated message] 7063331108) The system [employer] generated this result transmitted ref erence range: 0 - 5 HP F. The reference range was not used to int erpret this result as normal/abnormal . BACTERIA (test code = Few Negative A 1567083244) MUCOUS (test code = Slight Negative LPF A 6993965284) CA OXALATE (test code = See_Comment H [Au tomated message] 1326308183) The system [employer] generated this result transmitted ref erence range: <=1 HPF. The reference range was not used to int erpret this result as normal/abnormal . Lab Interpretation (test Abnormal code = 24422-3) [facility] CenterCT ABDOMEN PELVIS W [id number] 04:56:59 1. ?Interval removal of left subdiaphragmatic, [...] reviewed this study and agree with the abovereport.[facility] CenterCOVID-19 (ID NOW RAPID TESTING)2020-05-05 03:40:00 Test Item Value Reference Range Interpretation Comments SARS-CoV-2 Rapid ID NOW Not Detected Not Detected (test code = 35050-5) GILBERTO (test code = GILBERTO) ID NOW COVID-19 Assay is an isothermal nucleic acid amplification test intended for the qualitative detection of nucleic acid from SARS-CoV-2 viral RNA in nasopharyngeal (CABIN OUTFITTER) specimens. It is used under Emergency Use [...] indicated. Lab Interpretation Normal (test code = 72633-0) [facility]. METABOLIC PANEL (35042)2020-05-05 03:02:00 Test Item Value Reference Range Interpretation Comments NA (test code = 134 mmol/L 135-145 L 9446511865) K (test code = 4.7 mmol/L 3.5-5 4353791836) CL (test code = 99 mmol/L 98-108 8180835757) CO2 TOTAL (test code = 24 mmol/L 23-31 0653147029) AGAP (test code = 2-16 2718231169) BUN (test code = 37 mg/dL 7-23 H 7404837549) GLUCOSE (test code = 105 mg/dL 70-110 3460855409) CREATININE (test code = 0.94 mg/dL 0.6-1.25 6589829787) TOTAL BILI (test code = 0.5 mg/dL 0.1-1.2 2407744302) CALCIUM (test code = 8.8 mg/dL 8.6-10.6 4844867843) T PROTEIN (test code = 6.2 g/dL 6.3-8.2 L 7271325221) ALBUMIN (test code = 3.0 g/dL 3.5-5 L 5178799536) ALK PHOS (test code = 150 U/L 34-122 H 4994554756) ALTv (test code = 28 U/L 550 1742-6) AST(SGOT) (test code = 23 U/L 13-40 8508973078) eGFR Calculation mL/min/1.73m2 (Non-) (test code = 5773197520) eGFR Calculation mL/min/1.73m2 () (test code = 9689121306) GILBERTO (test code = GILBERTO) Association of [...] tests). Lab Interpretation Abnormal (test code = 70425-4) [facility] CenterLIPASE2020-09-12 03:02:00 Test Item Value Reference Range Interpretation Comments LIPASE (test code = 6201159226) 323 U/L 0-220 H Lab Interpretation (test code = Abnormal 32740-6) [facility] CenterCB WITH [id number] 02:43:00 Test Item Value Reference Range Interpretation [...] RDW-SD (test code = 45.7 fL 38.5-51.6 13594-4) RDW-CV (test code = 15.4 % 12.1-15.4 788-0) PLT (test code = See_Comment H [Automated 777-3) message] The system which generated this result transmit dain reference range : 150 - 328 10*3/ ?L. The reference range was not u sed to interpret th is result as normal/abnormal . MPV (test code = 8.9 fL 9.8-13 L 40547-2) NRBC/100 WBC (test See_Comment [Automat ed code = 5172737448) message] The system which generated this result transmit dain reference range : 0.0 - 10.0 /100 WBCs. The reference range was not used to interpret this result as normal/abnormal . NRBC x10^3 (test code <0.01 See_Comment [Auto mated = 2870219426) message] The system which generated this result transmit dain reference range : 10*3/?L. The reference range was not used to interpret this result as normal/abnormal . GRAN MAT (NEUT) % 82.6 % (test code = 770-8) IMM GRAN % (test code 0.60 % = 2848702230) LYMPH % (test code = 8.1 % 736-9) MONO % (test code = 8.1 % 5905-5) EOS % (test code = 0.4 % 713-8) BASO % (test code = 0.2 % 706-2) GRAN MAT x10^3(ANC) 11.18 10*3/uL 1.99-6.95 H (test code = 6142103655) IMM GRAN x10^3 (test 0.08 10*3/uL 0-0.06 H code = 2773082820) LYMPH x10^3 (test code 1.10 10*3/uL 1.09-3.23 = 731-0) MONO x10^3 (test code 1.09 10*3/uL 0.36-1.02 H = 742-7) EOS x10^3 (test code = 0.05 10*3/uL 0.06-0.53 L 711-2) BASO x10^3 (test code 0.03 10*3/uL 0.01-0.09 = 704-7) Lab Interpretation Abnormal (test code = 11586-7) [facility] METABOLIC PANEL (NA, K, CL, CO2, GLUCOSE, BUN, CREATININE, CA)2020-05-01 12:25:00 Test Item Value Reference Range Interpretation Comments NA (test code = 131 mmol/L 135-145 L 7647464040) K (test code = 4.7 mmol/L 3.5-5 4241829351) CL (test code = 97 mmol/L 98-108 L 9404211865) CO2 TOTAL (test code = 25 mmol/L 23-31 8924561717) AGAP (test code = 2-16 2370293500) BUN (test code = 30 mg/dL 7-23 H 9215770307) GLUCOSE (test code = 111 mg/dL 70-110 H 1810220405) CREATININE (test code = 0.69 mg/dL 0.6-1.25 1086870734) CALCIUM (test code = 9.3 mg/dL 8.6-10.6 6460020617) eGFR Calculation mL/min/1.73m2 (Non-) (test code = 8363635983) eGFR Calculation mL/min/1.73m2 () (test code = 5160852719) GILBERTO (test code = GILBERTO) Association of [...] tests). Lab Interpretation Abnormal (test code = 27338-5) [facility]MAGN[facility]IUM2020-09-08 12:07:00 Test Item Value Reference Range Interpretation Comments MAGNESIUM (test code = 3654717429) 2.3 mg/dL 1.7-2.4 Lab Interpretation (test code = Normal 62498-6) [facility] CenterPHOSPHORUS2020-09-08 12:07:00 Test Item Value Reference Range Interpretation Comments PHOSPHORUS (test code = 4131212859) 4.6 mg/dL 2.5-5 Lab Interpretation (test code = Normal 85027-2) [facility] WITH [id number] 11:44:00 Test Item Value Reference Range Interpretation Comments WBC (test code = See_Comment H [Automated 2290-2) message] The system which generated this result [...] RDW-SD (test code = 44.9 fL 38.5-51.6 27732-2) RDW-CV (test code = 14.8 % 12.1-15.4 788-0) PLT (test code = See_Comment H [Automated 777-3) message] The system which generated this result transmit dain reference range : 150 - 328 10*3/ ?L. The reference range was not u sed to interpret th is result as normal/abnormal . MPV (test code = 9.1 fL 9.8-13 L 70557-7) NRBC/100 WBC (test See_Comment [Automat ed code = 4664363325) message] The system which generated this result transmit dain reference range : 0.0 - 10.0 /100 WBCs. The reference range was not used to interpret this result as normal/abnormal . NRBC x10^3 (test code <0.01 See_Comment [Auto mated = 5765772286) message] The system which generated this result transmit dain reference range : 10*3/?L. The reference range was not used to interpret this result as normal/abnormal . GRAN MAT (NEUT) % 81.4 % (test code = 770-8) IMM GRAN % (test code 0.70 % = 1261612834) LYMPH % (test code = 8.7 % 736-9) MONO % (test code = 8.5 % 5905-5) EOS % (test code = 0.3 % 713-8) BASO % (test code = 0.4 % 706-2) GRAN MAT x10^3(ANC) 12.01 10*3/uL 1.99-6.95 H (test code = 6331595457) IMM GRAN x10^3 (test 0.10 10*3/uL 0-0.06 H code = 5270716470) LYMPH x10^3 (test code 1.28 10*3/uL 1.09-3.23 = 731-0) MONO x10^3 (test code 1.25 10*3/uL 0.36-1.02 H = 742-7) EOS x10^3 (test code = 0.04 10*3/uL 0.06-0.53 L 711-2) BASO x10^3 (test code 0.06 10*3/uL 0.01-0.09 = 704-7) Lab Interpretation Abnormal (test code = 98881-1) [facility] METABOLIC PANEL (NA, K, CL, CO2, GLUCOSE, BUN, CREATININE, CA)2020-04-29 12:08:00 Test Item Value Reference Range Interpretation Comments NA (test code = 130 mmol/L 135-145 L 8413325066) K (test code = 5.0 mmol/L 3.5-5 5666785952) CL (test code = 94 mmol/L 98-108 L 9509065821) CO2 TOTAL (test code = 27 mmol/L 23-31 5510031321) AGAP (test code = 2-16 0562842745) BUN (test code = 35 mg/dL 7-23 H 1591105989) GLUCOSE (test code = 116 mg/dL 70-110 H 1195967178) CREATININE (test code = 0.76 mg/dL 0.6-1.25 4106927793) CALCIUM (test code = 9.0 mg/dL 8.6-10.6 9160997311) eGFR Calculation mL/min/1.73m2 (Non-) (test code = 7847427364) eGFR Calculation mL/min/1.73m2 () (test code = 4087297257) GILBERTO (test code = GILBERTO) Association of [...] tests). Lab Interpretation Abnormal (test code = 09227-1) [facility]2020-[facility] 12:01:00 Test Item Value Reference Range Interpretation Comments MAGNESIUM (test code = 3995348175) 2.3 mg/dL 1.7-2.4 Lab Interpretation (test code = Normal 70086-7) [facility]PHOS[facility]US2020-09-06 12:01:00 Test Item Value Reference Range Interpretation Comments PHOSPHORUS (test code = 8742314889) 4.5 mg/dL 2.5-5 Lab Interpretation (test code = Normal 33980-1) [facility] WITH [id number] 11:52:00 Test Item Value Reference Range Interpretation [...] RDW-SD (test code = 44.4 fL 38.5-51.6 69425-2) RDW-CV (test code = 14.7 % 12.1-15.4 788-0) PLT (test code = See_Comment H [Automated 777-3) message] The system which generated this result transmit dain reference range : 150 - 328 10*3/ ?L. The reference range was not u sed to interpret th is result as normal/abnormal . MPV (test code = 9.1 fL 9.8-13 L 52516-0) NRBC/100 WBC (test See_Comment [Automat ed code = 5250568345) message] The system which generated this result transmit dain reference range : 0.0 - 10.0 /100 WBCs. The reference range was not used to interpret this result as normal/abnormal . NRBC x10^3 (test code <0.01 See_Comment [Auto mated = 9277108489) message] The system which generated this result transmit dain reference range : 10*3/?L. The reference range was not used to interpret this result as normal/abnormal . GRAN MAT (NEUT) % 82.5 % (test code = 770-8) IMM GRAN % (test code 1.30 % = 1084394245) LYMPH % (test code = 7.1 % 736-9) MONO % (test code = 8.5 % 5905-5) EOS % (test code = 0.3 % 713-8) BASO % (test code = 0.3 % 706-2) GRAN MAT x10^3(ANC) 14.27 10*3/uL 1.99-6.95 H (test code = 7240531141) IMM GRAN x10^3 (test 0.23 10*3/uL 0-0.06 H code = 9582230738) LYMPH x10^3 (test code 1.23 10*3/uL 1.09-3.23 = 731-0) MONO x10^3 (test code 1.47 10*3/uL 0.36-1.02 H = 742-7) EOS x10^3 (test code = 0.05 10*3/uL 0.06-0.53 L 711-2) BASO x10^3 (test code 0.06 10*3/uL 0.01-0.09 = 704-7) Lab Interpretation Abnormal (test code = 05872-2) [facility] METABOLIC PANEL (NA, K, CL, CO2, GLUCOSE, BUN, CREATININE, CA)2020-04-28 10:15:00 Test Item Value Reference Range Interpretation Comments NA (test code = 130 mmol/L 135-145 L 5508650927) K (test code = 5.3 mmol/L 3.5-5 H 0035085379) CL (test code = 91 mmol/L 98-108 L 0642893628) CO2 TOTAL (test code = 29 mmol/L 23-31 3750455333) AGAP (test code = 2-16 9157279812) BUN (test code = 32 mg/dL 7-23 H 7683961279) GLUCOSE (test code = 101 mg/dL 70-110 8549881029) CREATININE (test code = 0.74 mg/dL 0.6-1.25 7651261957) CALCIUM (test code = 9.5 mg/dL 8.6-10.6 9826192528) eGFR Calculation mL/min/1.73m2 (Non-) (test code = 2450784981) eGFR Calculation mL/min/1.73m2 () (test code = 1861216689) GILBERTO (test code = GILBERTO) Association of [...] tests). Lab Interpretation Abnormal (test code = 63330-3) [facility] 10:12:00 Test Item Value Reference Range Interpretation Comments MAGNESIUM (test code = 8582625530) 2.3 mg/dL 1.7-2.4 Lab Interpretation (test code = Normal 73845-0) [facility] WITH [id number] 09:55:00 Test Item Value Reference Range Interpretation [...] RDW-SD (test code = 45.1 fL 38.5-51.6 32025-6) RDW-CV (test code = 14.7 % 12.1-15.4 788-0) PLT (test code = See_Comment H [Automated 777-3) message] The system which generated this result transmit dain reference range : 150 - 328 10*3/ ?L. The reference range was not u sed to interpret th is result as normal/abnormal . MPV (test code = 9.5 fL 9.8-13 L 30873-8) NRBC/100 WBC (test See_Comment [Automat ed code = 7277311349) message] The system which generated this result transmit dain reference range : 0.0 - 10.0 /100 WBCs. The reference range was not used to interpret this result as normal/abnormal . NRBC x10^3 (test code <0.01 See_Comment [Auto mated = 1395798411) message] The system which generated this result transmit dain reference range : 10*3/?L. The reference range was not used to interpret this result as normal/abnormal . GRAN MAT (NEUT) % 81.1 % (test code = 770-8) IMM GRAN % (test code 1.40 % = 4182226426) LYMPH % (test code = 8.6 % 736-9) MONO % (test code = 7.9 % 5905-5) EOS % (test code = 0.5 % 713-8) BASO % (test code = 0.5 % 706-2) GRAN MAT x10^3(ANC) 14.68 10*3/uL 1.99-6.95 H (test code = 0913861574) IMM GRAN x10^3 (test 0.25 10*3/uL 0-0.06 H code = 8442487594) LYMPH x10^3 (test code 1.55 10*3/uL 1.09-3.23 = 731-0) MONO x10^3 (test code 1.43 10*3/uL 0.36-1.02 H = 742-7) EOS x10^3 (test code = 0.09 10*3/uL 0.06-0.53 711-2) BASO x10^3 (test code 0.09 10*3/uL 0.01-0.09 = 704-7) Lab Interpretation Abnormal (test code = 81837-0) [facility] METABOLIC PANEL (NA, K, CL, CO2, GLUCOSE, BUN, CREATININE, CA)2020-04-27 10:20:00 Test Item Value Reference Range Interpretation Comments NA (test code = 130 mmol/L 135-145 L 4428465750) K (test code = 4.5 mmol/L 3.5-5 9791336953) CL (test code = 93 mmol/L 98-108 L 5269856350) CO2 TOTAL (test code = 28 mmol/L 23-31 1385361793) AGAP (test code = 2-16 1383554492) BUN (test code = 31 mg/dL 7-23 H 6256130207) GLUCOSE (test code = 102 mg/dL 70-110 1350880408) CREATININE (test code = 0.81 mg/dL 0.6-1.25 5490591163) CALCIUM (test code = 9.0 mg/dL 8.6-10.6 8736171102) eGFR Calculation mL/min/1.73m2 (Non-) (test code = 6172809124) eGFR Calculation mL/min/1.73m2 () (test code = 4989224608) GILBERTO (test code = GILBERTO) Association of [...] tests). Lab Interpretation Abnormal (test code = 05600-0) [facility] 10:20:00 Test Item Value Reference Range Interpretation Comments MAGNESIUM (test code = 0915698662) 2.2 mg/dL 1.7-2.4 Lab Interpretation (test code = Normal 68048-6) [facility] WITH [id number] 09:49:00 Test Item Value Reference Range Interpretation Comments WBC (test code = See_Comment H [Automated 5640-2) message] The system which generated this result [...] RDW-SD (test code = 45.2 fL 38.5-51.6 89912-5) RDW-CV (test code = 14.5 % 12.1-15.4 788-0) PLT (test code = See_Comment H [Automated 777-3) message] The system which generated this result transmit dain reference range : 150 - 328 10*3/ ?L. The reference range was not u sed to interpret th is result as normal/abnormal . MPV (test code = 9.0 fL 9.8-13 L 99760-7) NRBC/100 WBC (test See_Comment [Automat ed code = 2228929418) message] The system which generated this result transmit dain reference range : 0.0 - 10.0 /100 WBCs. The reference range was not used to interpret this result as normal/abnormal . NRBC x10^3 (test code <0.01 See_Comment [Auto mated = 1886410478) message] The system which generated this result transmit dain reference range : 10*3/?L. The reference range was not used to interpret this result as normal/abnormal . GRAN MAT (NEUT) % 80.9 % (test code = 770-8) IMM GRAN % (test code 1.30 % = 2723774734) LYMPH % (test code = 8.9 % 736-9) MONO % (test code = 7.7 % 5905-5) EOS % (test code = 0.6 % 713-8) BASO % (test code = 0.6 % 706-2) GRAN MAT x10^3(ANC) 13.18 10*3/uL 1.99-6.95 H (test code = 8384940706) IMM GRAN x10^3 (test 0.21 10*3/uL 0-0.06 H code = 3722407501) LYMPH x10^3 (test code 1.45 10*3/uL 1.09-3.23 = 731-0) MONO x10^3 (test code 1.26 10*3/uL 0.36-1.02 H = 742-7) EOS x10^3 (test code = 0.09 10*3/uL 0.06-0.53 711-2) BASO x10^3 (test code 0.10 10*3/uL 0.01-0.09 H = 704-7) Lab Interpretation Abnormal (test code = 71810-4) [facility] METABOLIC PANEL (NA, K, CL, CO2, GLUCOSE, BUN, CREATININE, CA)2020-04-26 11:29:00 Test Item Value Reference Range Interpretation Comments NA (test code = 133 mmol/L 135-145 L 3789153223) K (test code = 4.7 mmol/L 3.5-5 2520591245) CL (test code = 98 mmol/L 98-108 2964383721) CO2 TOTAL (test code = 25 mmol/L 23-31 4065482550) AGAP (test code = 2-16 3393282929) BUN (test code = 26 mg/dL 7-23 H 6496825532) GLUCOSE (test code = 97 mg/dL 70-110 2160795834) CREATININE (test code = 0.73 mg/dL 0.6-1.25 4081697922) CALCIUM (test code = 8.7 mg/dL 8.6-10.6 9310795024) eGFR Calculation mL/min/1.73m2 (Non-) (test code = 1191913390) eGFR Calculation mL/min/1.73m2 () (test code = 0363596550) GILBERTO (test code = GILBERTO) Association of [...] tests). Lab Interpretation Abnormal (test code = 95281-7) [facility] Test Item Value Reference Range Interpretation Comments MAGNESIUM (test code = 5743385515) 2.1 mg/dL 1.7-2.4 Lab Interpretation (test code = Normal 44910-3) [facility] WITH [id number] 10:27:00 Test Item Value Reference Range Interpretation [...] RDW-SD (test code = 45.4 fL 38.5-51.6 04018-0) RDW-CV (test code = 14.5 % 12.1-15.4 788-0) PLT (test code = See_Comment H [Automated 777-3) message] The system which generated this result transmit dain reference range : 150 - 328 10*3/ ?L. The reference range was not u sed to interpret th is result as normal/abnormal . MPV (test code = 9.3 fL 9.8-13 L 92275-4) NRBC/100 WBC (test See_Comment [Automat ed code = [id number]) message] The system which generated this result transmit dain reference range : 0.0 - 10.0 /100 WBCs. The reference range was not used to interpret this result as normal/abnormal . NRBC x10^3 (test code <0.01 See_Comment [Auto mated = [id number]) message] The system which generated this result transmit dain reference range : 10*3/?L. The reference range was not used to interpret this result as normal/abnormal . GRAN MAT (NEUT) % 79.6 % (test code = 770-8) IMM GRAN % (test code 1.30 % = 4124632760) LYMPH % (test code = 8.6 % 736-9) MONO % (test code = 9.3 % 5905-5) EOS % (test code = 0.8 % 713-8) BASO % (test code = 0.4 % 706-2) GRAN MAT x10^3(ANC) 12.46 10*3/uL 1.99-6.95 H (test code = 4449875003) IMM GRAN x10^3 (test 0.21 10*3/uL 0-0.06 H code = [id number]) LYMPH x10^3 (test code 1.34 10*3/uL 1.09-3.23 = 731-0) MONO x10^3 (test code 1.45 10*3/uL 0.36-1.02 H = 742-7) EOS x10^3 (test code = 0.13 10*3/uL 0.06-0.53 711-2) BASO x10^3 (test code 0.07 10*3/uL 0.01-0.09 = 704-7) Lab Interpretation Abnormal (test code = 21172-4) [facility] (NA, K, CL, CO2, GLUCOSE, BUN, CREATININE, [place])2020-04-25 10:03:00 Test Item Value Reference Range Interpretation Comments NA (test code = 133 mmol/L 135-145 L 4585222599) K (test code = 4.6 mmol/L 3.5-5 2520726607) CL (test code = 96 mmol/L 98-108 L 6156261027) CO2 TOTAL (test code = 27 mmol/L 23-31 4991597490) AGAP (test code = 2-16 4092157328) BUN (test code = 21 mg/dL 7-23 0393089559) GLUCOSE (test code = 108 mg/dL 70-110 0952301770) CREATININE (test code = 0.76 mg/dL 0.6-1.25 2514770422) CALCIUM (test code = 9.5 mg/dL 8.6-10.6 5108213155) eGFR Calculation mL/min/1.73m2 (Non-) (test code = 9768411178) eGFR Calculation mL/min/1.73m2 () (test code = 1369786773) GILBERTO (test code = GILBERTO) Association of [...] tests). Lab Interpretation Abnormal (test code = 22420-4) [facility]00 Test Item Value Reference Range Interpretation Comments MAGNESIUM (test code = 2268902884) 2.4 mg/dL 1.7-2.4 Lab Interpretation (test code = Normal 01656-1) [facility] WITH [id number] 09:48:00 Test Item Value Reference Range Interpretation [...] RDW-SD (test code = 45.7 fL 38.5-51.6 34521-3) RDW-CV (test code = 14.3 % 12.1-15.4 788-0) PLT (test code = See_Comment HH [Automated 777-3) message] The system which generated this result transmit dain reference range : 150 - 328 10*3/ ?L. The reference range was not u sed to interpret th is result as normal/abnormal . MPV (test code = 9.1 fL 9.8-13 L 06646-3) NRBC/100 WBC (test See_Comment [Automat ed code = 4130461544) message] The system which generated this result transmit dain reference range : 0.0 - 10.0 /100 WBCs. The reference range was not used to interpret this result as normal/abnormal . NRBC x10^3 (test code <0.01 See_Comment [Auto mated = 0223485805) message] The system which generated this result transmit dain reference range : 10*3/?L. The reference range was not used to interpret this result as normal/abnormal . GRAN MAT (NEUT) % 78.9 % (test code = 770-8) IMM GRAN % (test code 1.70 % = 4059622932) LYMPH % (test code = 8.7 % 736-9) MONO % (test code = 9.1 % 5905-5) EOS % (test code = 0.9 % 713-8) BASO % (test code = 0.7 % 706-2) GRAN MAT x10^3(ANC) 11.96 10*3/uL 1.99-6.95 H (test code = 0332683247) IMM GRAN x10^3 (test 0.26 10*3/uL 0-0.06 H code = 8695406158) LYMPH x10^3 (test code 1.32 10*3/uL 1.09-3.23 = 731-0) MONO x10^3 (test code 1.38 10*3/uL 0.36-1.02 H = 742-7) EOS x10^3 (test code = 0.13 10*3/uL 0.06-0.53 711-2) BASO x10^3 (test code 0.11 10*3/uL 0.01-0.09 H = 704-7) Lab Interpretation Abnormal (test code = 54453-0) [facility] WITH [id number] 10:40:00 Test Item Value Reference Range Interpretation [...] RDW-SD (test code = 46.3 fL 38.5-51.6 36045-4) RDW-CV (test code = 14.5 % 12.1-15.4 788-0) PLT (test code = See_Comment HH [Automated 777-3) message] The sy stem which generated this result transmitted reference range : 150 - 328 10*3/ ?L. The reference r meredith was not used to interpret this result as normal/abnormal . MPV (test code = 9.1 fL 9.8-13 L 62972-0) NRBC/100 WBC (test See_Comment [Automat ed code = 7882651289) message] The system which generated this result transmitted reference range : 0.0 - 10.0 /100 WBCs. The refer ence range was not u sed to interpret th is result as normal/abnormal . NRBC x10^3 (test code <0.01 See_Comment [Auto mated = 2313046914) message] The s ystem which generated this result transmitted reference range : 10*3/?L. The reference range was not used to interpret this result as normal/abnormal . GRAN MAT (NEUT) % 74.7 % (test code = 770-8) IMM GRAN % (test code 2.00 % = 7077826353) LYMPH % (test code = 10.0 % 736-9) MONO % (test code = 11.4 % 5905-5) EOS % (test code = 1.3 % 713-8) BASO % (test code = 0.6 % 706-2) GRAN MAT x10^3(ANC) 9.44 10*3/uL 1.99-6.95 H (test code = 9512038966) IMM GRAN x10^3 (test 0.25 10*3/uL 0-0.06 H code = 4079588437) LYMPH x10^3 (test code 1.26 10*3/uL 1.09-3.23 = 731-0) MONO x10^3 (test code 1.44 10*3/uL 0.36-1.02 H = 742-7) EOS x10^3 (test code = 0.16 10*3/uL 0.06-0.53 711-2) BASO x10^3 (test code 0.07 10*3/uL 0.01-0.09 = 704-7) Lab Interpretation Abnormal (test code = 42684-0) [facility] METABOLIC PANEL (NA, K, CL, CO2, GLUCOSE, BUN, CREATININE, [place])2020-04-24 10:39:00 Test Item Value Reference Range Interpretation Comments NA (test code = 133 mmol/L 135-145 L 9723204181) K (test code = 4.3 mmol/L 3.5-5 4458140478) CL (test code = 99 mmol/L 98-108 7111934838) CO2 TOTAL (test code = 29 mmol/L 23-31 3174705740) AGAP (test code = 2-16 5931039648) BUN (test code = 20 mg/dL 7-23 0076032327) GLUCOSE (test code = 109 mg/dL 70-110 2155439021) CREATININE (test code = 0.78 mg/dL 0.6-1.25 5240550958) CALCIUM (test code = 8.4 mg/dL 8.6-10.6 L 2908552324) eGFR Calculation mL/min/1.73m2 (Non-) (test code = 2003540364) eGFR Calculation mL/min/1.73m2 () (test code = 3210565814) GILBERTO (test code = GILBERTO) Association of [...] tests). Lab Interpretation Abnormal (test code = 22394-6) [facility] 10[facility]39:00 Test Item Value Reference Range Interpretation Comments MAGNESIUM (test code = 3354299518) 2.2 mg/dL 1.7-2.4 Lab Interpretation (test code = Normal 31824-6) [facility] [id number] 09:30:06 1. ?Overall, no significant change in [...] (AP x TV x CC) perisplenic collection abuttingtheinferior spleen (5:39), essentially unchanged and in communication [...] quadrant containing pigtailcatheter (5:91), previously measured 4.8 cm.A left abdominal approach surgical [...] and right lowerquadrant ileostomy. 4. Unchanged mildly edematousappearance of small bowel, probablyreactive.5. Mild thickening of the urinary bladder dome is likelyreactive.Consider checking UA.6. Unchanged soft tissue defect in the ventral abdominal wall at the siteof midline incision (containing packing material).7. Mild additional findings as above.PreliminaryReport Dictated by Resident: Louis Dixon MD., have reviewed this study and agree with theabove report.[facility]CT THORAX W [id number] 03:46:28 Acute pulmonary emboli in the anterior segmental branch supplying the leftupper lobe. No CT findings of right heart strain. Moderate-sized loculated left hydropneumothorax. Pleural fistula to thesubdia phragmatic collection should be considered. Focal hypoattenuatingarea within [...] andmorphology. No significant pericardial thickening or effusion. Oapletlx-hq-gwczo cardiomediastinal shift. Scattered subcentimeter mediastinal and bilateral [...] andmorphology. No significant pericardial thickening or effusion. Ulhcrohy-no-rgstm cardiomediastinal shift.Scattered subcentimeter mediastinal and bilateral hilar [...] reviewed this study and agree with theabove report.[facility]OVID[facility] (ID NOW RAPID TESTING)2020-04-23 17:45:00 Test Item Value Reference Range Interpretation Comments SARS-CoV-2 Rapid ID NOW Not Detected Not Detected (test code = 05036-8) GILBERTO (test code = GILBERTO) ID NOW COVID-19 Assay is an isothermal nucleic acid amplification test intended for the qualitative detection of nucleic acid from SARS-CoV-2 viral RNA in nasopharyngeal (CABIN OUTFITTER) specimens. It is used under Emergency Use [...] indicated. Lab Interpretation Normal (test code = 49014-8) [facility]2020-[facility] 17:40:00 Test Item Value Reference Range Interpretation Comments PALB (test code = 76309-0) 11.8 mg/dL 18-45 L Lab Interpretation (test code = Abnormal 11403-0) [facility] 1 [id number] 15:00:55 Stable appearance of left pleural effusion [...] reviewed this study and agree with theabove report.[facility] CenterPOTASSIUM [id number] 14:14:00 Test Item Value Reference Range Interpretation Comments K (test code = 7426636518) 4.8 mmol/L 3.5-5 Lab Interpretation (test code = Normal 74062-8) [facility] WITH [id number] 11:30:00 Test Item Value Reference Range Interpretation [...] RDW-SD (test code = 45.0 fL 38.5-51.6 52550-3) RDW-CV (test code = 14.5 % 12.1-15.4 788-0) PLT (test code = See_Comment HH [Automated 777-3) message] The sy stem which generated this result transmitted reference range : 150 - 328 10*3/ ?L. The reference r meredith was not used to interpret this result as normal/abnormal . MPV (test code = 9.4 fL 9.8-13 L 72313-9) IPF % (test code = 1.6 % 1.2-10.7 Platelet count 0307350809) measured by fluorescence method. NRBC/100 WBC (test See_Comment [Automat ed code = 4963885189) message] The system which generated this result transmitted reference range : 0.0 - 10.0 /100 WBCs. The refer ence range was not u sed to interpret th is result as normal/abnormal . NRBC x10^3 (test code <0.01 See_Comment [Auto mated = 3659170235) message] The s ystem which generated this result transmitted reference range : 10*3/?L. The reference range was not used to interpret this result as normal/abnormal . GRAN MAT (NEUT) % 73.4 % (test code = 770-8) IMM GRAN % (test code 1.80 % = 0984655982) LYMPH % (test code = 12.6 % 736-9) MONO % (test code = 10.8 % 5905-5) EOS % (test code = 1.0 % 713-8) BASO % (test code = 0.4 % 706-2) GRAN MAT x10^3(ANC) 9.57 10*3/uL 1.99-6.95 H (test code = 2718438910) IMM GRAN x10^3 (test 0.24 10*3/uL 0-0.06 H code = 0475953799) LYMPH x10^3 (test code 1.64 10*3/uL 1.09-3.23 = 731-0) MONO x10^3 (test code 1.41 10*3/uL 0.36-1.02 H = 742-7) EOS x10^3 (test code = 0.13 10*3/uL 0.06-0.53 711-2) BASO x10^3 (test code 0.05 10*3/uL 0.01-0.09 = 704-7) Lab Interpretation Abnormal (test code = 92903-8) [facility] METABOLIC PANEL (NA, K, CL, CO2, GLUCOSE, BUN, CREATININE, [place])2020-04-23 10:52:00 Test Item Value Reference Range Interpretation Comments NA (test code = 132 mmol/L 135-145 L 3082600949) K (test code = 5.7 mmol/L 3.5-5 H 9503538691) CL (test code = 97 mmol/L 98-108 L 4950693216) CO2 TOTAL (test code = 26 mmol/L -31 0163963998) AGAP (test code = 2-16 9786792709) BUN (test code = 34 mg/dL 7-23 H 1470005164) GLUCOSE (test code = 101 mg/dL 70-110 2996950506) CREATININE (test code = 0.85 mg/dL 0.6-1.25 2264535725) CALCIUM (test code = 9.0 mg/dL 8.6-10.6 8565763588) eGFR Calculation mL/min/1.73m2 (Non-) (test code = 8836222824) eGFR Calculation mL/min/1.73m2 () (test code = 5541685425) GILBERTO (test code = GILBERTO) Association of [...] tests). Lab Interpretation Abnormal (test code = 20850-5) [facility] Test Item Value Reference Range Interpretation Comments MAGNESIUM (test code = 0084456799) 2.3 mg/dL 1.7-2.4 Lab Interpretation (test code = Normal 29745-8) [facility] [id number] 13:26:55 FINDINGS/IMPRESSION: 1. ?A left pigtail chest [...] effusion COMPARISON: Chest x-ray on 04/21/2020 [facility], Radiant Results [...] reviewed this study and agree with theabove report.[facility] VW 2020-04-22 13:24:27FINDINGS/IMPRESSION: [...] this study and agree with theabove report. [facility] (NA, K, CL, CO2, GLUCOSE, BUN, CREATININE, [place])2020-04-22 11:49:00 Test Item Value Reference Range Interpretation Comments NA (test code = 132 mmol/L 135-145 L 0890293380) K (test code = 4.7 mmol/L 3.5-5 0778626420) CL (test code = 97 mmol/L 98-108 L 8137814012) CO2 TOTAL (test code = 30 mmol/L 23-31 7437493361) AGAP (test code = 2-16 5101292918) BUN (test code = 28 mg/dL 7-23 H 6963424793) GLUCOSE (test code = 117 mg/dL 70-110 H 4432266062) CREATININE (test code = 0.88 mg/dL 0.6-1.25 4028512625) CALCIUM (test code = 8.8 mg/dL 8.6-10.6 3620729566) eGFR Calculation mL/min/1.73m2 (Non-) (test code = 7712320309) eGFR Calculation mL/min/1.73m2 () (test code = 4090545311) GILBERTO (test code = GILBERTO) Association of [...] tests). Lab Interpretation Abnormal (test code = 19552-0) [facility]2020-[facility]30 11:49:00 Test Item Value Reference Range Interpretation Comments MAGNESIUM (test code = 7542850862) 2.4 mg/dL 1.7-2.4 Lab Interpretation (test code = Normal 04057-2) [facility] WITH [id number] 11:23:00 Test Item Value Reference Range Interpretation Comments WBC (test code = See_Comment H [Automated 4575-2) message] The sy stem which generated this result transmitted reference range : 4.20 - 10.70 10*3/?L. The reference range was not used to interpret this result as normal/abnormal . RBC (test code = See_Comment L [Automated 588-8) message] The sy stem which generated this [...] RDW-SD (test code = 44.9 fL 38.5-51.6 25708-6) RDW-CV (test code = 14.4 % 12.1-15.4 788-0) PLT (test code = See_Comment HH [Automated 777-3) message] The sy stem which generated this result transmitted reference range : 150 - 328 10*3/ ?L. The reference r meredith was not used to interpret this result as normal/abnormal . MPV (test code = 9.5 fL 9.8-13 L 02015-5) NRBC/100 WBC (test See_Comment [Automat ed code = 5823458688) message] The system which generated this result transmitted reference range : 0.0 - 10.0 /100 WBCs. The refer ence range was not u sed to interpret th is result as normal/abnormal . NRBC x10^3 (test code <0.01 See_Comment [Auto mated = 1114313274) message] The s ystem which generated this result transmitted reference range : 10*3/?L. The reference range was not used to interpret this result as normal/abnormal . GRAN MAT (NEUT) % 80.3 % (test code = 770-8) IMM GRAN % (test code 1.50 % = 2649257506) LYMPH % (test code = 7.2 % 736-9) MONO % (test code = 9.7 % 5905-5) EOS % (test code = 0.7 % 713-8) BASO % (test code = 0.6 % 706-2) GRAN MAT x10^3(ANC) 9.99 10*3/uL 1.99-6.95 H (test code = 8776463193) IMM GRAN x10^3 (test 0.19 10*3/uL 0-0.06 H code = 1157718807) LYMPH x10^3 (test code 0.90 10*3/uL 1.09-3.23 L = 731-0) MONO x10^3 (test code 1.21 10*3/uL 0.36-1.02 H = 742-7) EOS x10^3 (test code = 0.09 10*3/uL 0.06-0.53 711-2) BASO x10^3 (test code 0.07 10*3/uL 0.01-0.09 = 704-7) Lab Interpretation Abnormal (test code = 81645-0) [facility] WITH [id number] 14:15:00 Test Item Value Reference Range Interpretation [...] RDW-SD (test code = 44.4 fL 38.5-51.6 63353-3) RDW-CV (test code = 14.2 % 12.1-15.4 788-0) PLT (test code = See_Comment HH [Automated 777-3) message] The sy stem which generated this result transmitted reference range : 150 - 328 10*3/ ?L. The reference r meredith was not used to interpret this result as normal/abnormal . MPV (test code = 9.0 fL 9.8-13 L 33781-0) NRBC/100 WBC (test See_Comment [Automat ed code = 7303091546) message] The system which generated this result transmitted reference range : 0.0 - 10.0 /100 WBCs. The refer ence range was not u sed to interpret th is result as normal/abnormal . NRBC x10^3 (test code <0.01 See_Comment [Auto mated = 1721094397) message] The s ystem which generated this result transmitted reference range : 10*3/?L. The reference range was not used to interpret this result as normal/abnormal . GRAN MAT (NEUT) % 76.4 % (test code = 770-8) IMM GRAN % (test code 1.30 % = 4492439357) LYMPH % (test code = 10.9 % 736-9) MONO % (test code = 9.6 % 5905-5) EOS % (test code = 1.1 % 713-8) BASO % (test code = 0.7 % 706-2) GRAN MAT x10^3(ANC) 9.41 10*3/uL 1.99-6.95 H (test code = 2574610895) IMM GRAN x10^3 (test 0.16 10*3/uL 0-0.06 H code = 5277059015) LYMPH x10^3 (test code 1.34 10*3/uL 1.09-3.23 = 731-0) MONO x10^3 (test code 1.18 10*3/uL 0.36-1.02 H = 742-7) EOS x10^3 (test code = 0.13 10*3/uL 0.06-0.53 711-2) BASO x10^3 (test code 0.08 10*3/uL 0.01-0.09 = 704-7) Lab Interpretation Abnormal (test code = 59087-6) [facility] METABOLIC PANEL (NA, K, CL, CO2, GLUCOSE, BUN, CREATININE, [place])2020-04-21 13:47:00 Test Item Value Reference Range Interpretation Comments NA (test code = 130 mmol/L 135-145 L 9054223984) K (test code = 4.8 mmol/L 3.5-5 4995707472) CL (test code = 95 mmol/L 98-108 L 8671316732) CO2 TOTAL (test code = 29 mmol/L 23-31 0494389558) AGAP (test code = 2-16 3242829520) BUN (test code = 25 mg/dL 7-23 H 3484906543) GLUCOSE (test code = 98 mg/dL 70-110 8436197945) CREATININE (test code = 0.78 mg/dL 0.6-1.25 3492813360) CALCIUM (test code = 8.2 mg/dL 8.6-10.6 L 8133588338) eGFR Calculation mL/min/1.73m2 (Non-) (test code = 0722472173) eGFR Calculation mL/min/1.73m2 () (test code = 7889071063) GILBERTO (test code = GILBERTO) Association of [...] tests). Lab Interpretation Abnormal (test code = 81473-6) [facility]2020-08-29 13:47:00 Test Item Value Reference Range Interpretation Comments MAGNESIUM (test code = 6330975498) 2.1 mg/dL 1.7-2.4 Lab Interpretation (test code = Normal 96736-9) [facility] 21:30:00 Test Item Value Reference Range Interpretation Comments PALB (test code = 33788-6) 9.3 mg/dL 18-45 L Lab Interpretation (test code = Abnormal 37729-6) [facility] Center[facility] Fluid [id number] 14:32:00 Test Item Value Reference Range Interpretation Comments BODY FLUID CULT No organisms isolated (test code = 611-4) Gram stain (test Occasional (Rare) code = 664-3) Polymorphonuclear leukocytes [facility] [id number] 13:09:21EXAM: XR CHEST 1 VW HISTORY: ct [...] heart and great vessels are normal. ? [facility], Radiant Results Inft User - 04/20/2020 8:10 [...] The heart and great vessels are normal. [facility]OL[facility] (NA, K, CL, CO2, GLUCOSE, BUN, CREATININE, CA)2020-04-20 11:00:00 Test Item Value Reference Range Interpretation Comments NA (test code = 132 mmol/L 135-145 L 7698062351) K (test code = 5.2 mmol/L 3.5-5 H 7586818866) CL (test code = 100 mmol/L 98-108 4317818246) CO2 TOTAL (test code = 24 mmol/L 23-31 2872054272) AGAP (test code = 2-16 9344558160) BUN (test code = 19 mg/dL 7-23 9320479694) GLUCOSE (test code = 121 mg/dL 70-110 H 6836493788) CREATININE (test code = 0.77 mg/dL 0.6-1.25 6217243574) CALCIUM (test code = 8.2 mg/dL 8.6-10.6 L 0134015192) eGFR Calculation mL/min/1.73m2 (Non-) (test code = 9092441095) eGFR Calculation mL/min/1.73m2 () (test code = 7764149356) GILBERTO (test code = GILBERTO) Association of [...] tests). Lab Interpretation Abnormal (test code = 30256-0) [facility]2020-08-28 11:00:00 Test Item Value Reference Range Interpretation Comments MAGNESIUM (test code = 9626496143) 2.1 mg/dL 1.7-2.4 Lab Interpretation (test code = Normal 00937-1) [facility]2020-08-28 11:00:00 Test Item Value Reference Range Interpretation Comments PHOSPHORUS (test code = 4101410438) 3.9 mg/dL 2.5-5 Lab Interpretation (test code = Normal 23770-2) [facility]CBC WITH [id number] 10:23:00 Test Item Value Reference Range Interpretation Comments WBC (test code = See_Comment H [Automated 5790-2) message] The system which generated this result transmit dain reference range : 4.20 - 10.70 10*3/?L. The reference range was not used to interpret this result as normal/abnormal . RBC (test code = See_Comment L [Automated 239-8) message] The system which generated this result [...] RDW-SD (test code = 45.2 fL 38.5-51.6 06751-9) RDW-CV (test code = 14.2 % 12.1-15.4 788-0) PLT (test code = See_Comment HH [Automated 777-3) message] The system which generated this result transmit dain reference range : 150 - 328 10*3/ ?L. The reference range was not u sed to interpret th is result as normal/abnormal . MPV (test code = 9.3 fL 9.8-13 L 94186-1) NRBC/100 WBC (test See_Comment [Automat ed code = 9930389818) message] The system which generated this result transmit dain reference range : 0.0 - 10.0 /100 WBCs. The reference range was not used to interpret this result as normal/abnormal . NRBC x10^3 (test code <0.01 See_Comment [Auto mated = 5852960245) message] The system which generated this result transmit dain reference range : 10*3/?L. The reference range was not used to interpret this result as normal/abnormal . GRAN MAT (NEUT) % 79.8 % (test code = 770-8) IMM GRAN % (test code 1.50 % = 1837877108) LYMPH % (test code = 9.8 % 736-9) MONO % (test code = 7.5 % 5905-5) EOS % (test code = 0.6 % 713-8) BASO % (test code = 0.8 % 706-2) GRAN MAT x10^3(ANC) 10.64 10*3/uL 1.99-6.95 H (test code = 0877858436) IMM GRAN x10^3 (test 0.20 10*3/uL 0-0.06 H code = 1911304078) LYMPH x10^3 (test code 1.31 10*3/uL 1.09-3.23 = 731-0) MONO x10^3 (test code 1.00 10*3/uL 0.36-1.02 = 742-7) EOS x10^3 (test code = 0.08 10*3/uL 0.06-0.53 711-2) BASO x10^3 (test code 0.10 10*3/uL 0.01-0.09 H = 704-7) Lab Interpretation Abnormal (test code = 59700-0) [facility] [id number] 12:25:53 No residual pleural effusion noted. Preliminary [...] reviewed this study and agree with theabove report.[facility] (NA, K, CL, CO2, GLUCOSE, BUN, CREATININE, CA)2020-04-19 11:09:00 Test Item Value Reference Range Interpretation Comments NA (test code = 133 mmol/L 135-145 L 5049896415) K (test code = 4.2 mmol/L 3.5-5 1276922384) CL (test code = 101 mmol/L 98-108 0634634051) CO2 TOTAL (test code = 26 mmol/L 23-31 3714529040) AGAP (test code = 2-16 7410248289) BUN (test code = 15 mg/dL 7-23 4675937516) GLUCOSE (test code = 113 mg/dL 70-110 H 7563451062) CREATININE (test code = 0.73 mg/dL 0.6-1.25 4943435508) CALCIUM (test code = 8.1 mg/dL 8.6-10.6 L 9263062260) eGFR Calculation mL/min/1.73m2 (Non-) (test code = 4310653973) eGFR Calculation mL/min/1.73m2 () (test code = 7938150472) GILBERTO (test code = GILBERTO) Association of [...] tests). Lab Interpretation Abnormal (test code = 50735-3) [facility]2020-[facility] 11:09:00 Test Item Value Reference Range Interpretation Comments MAGNESIUM (test code = 8038946570) 2.1 mg/dL 1.7-2.4 Lab Interpretation (test code = Normal 14242-6) [facility]2020-08-27 11:09:00 Test Item Value Reference Range Interpretation Comments PHOSPHORUS (test code = 3748111222) 3.9 mg/dL 2.5-5 Lab Interpretation (test code = Normal 18907-2) [facility] WITH [id number] 10:59:00 Test Item Value Reference Range Interpretation [...] RDW-SD (test code = 46.0 fL 38.5-51.6 95354-7) RDW-CV (test code = 14.2 % 12.1-15.4 788-0) PLT (test code = See_Comment HH [Automated 777-3) message] The sy stem which generated this result transmitted reference range : 150 - 328 10*3/ ?L. The reference r meredith was not used to interpret this result as normal/abnormal . MPV (test code = 9.3 fL 9.8-13 L 27496-6) NRBC/100 WBC (test See_Comment [Automat ed code = 9543845543) message] The system which generated this result transmitted reference range : 0.0 - 10.0 /100 WBCs. The refer ence range was not u sed to interpret th is result as normal/abnormal . NRBC x10^3 (test code <0.01 See_Comment [Auto mated = 5295783840) message] The s ystem which generated this result transmitted reference range : 10*3/?L. The reference range was not used to interpret this result as normal/abnormal . GRAN MAT (NEUT) % 79.2 % (test code = 770-8) IMM GRAN % (test code 1.00 % = 2842650300) LYMPH % (test code = 11.4 % 736-9) MONO % (test code = 6.7 % 5905-5) EOS % (test code = 1.0 % 713-8) BASO % (test code = 0.7 % 706-2) GRAN MAT x10^3(ANC) 9.49 10*3/uL 1.99-6.95 H (test code = [id number]) IMM GRAN x10^3 (test 0.12 10*3/uL 0-0.06 H code = [id number]) LYMPH x10^3 (test code 1.36 10*3/uL 1.09-3.23 = 731-0) MONO x10^3 (test code 0.80 10*3/uL 0.36-1.02 = 742-7) EOS x10^3 (test code = 0.12 10*3/uL 0.06-0.53 711-2) BASO x10^3 (test code 0.08 10*3/uL 0.01-0.09 = 704-7) Lab Interpretation Abnormal (test code = 19472-8) [id number]29:00 Test Item Value Reference Range Interpretation Comments Blood Culture-Aerobic No organisms No growth Previo us (test code = 38233-8) isolated prelim inary verified result was Culture In Progress on 04/13/2020 at 06 06 CDT Blood Culture positive. No growth AA Previous Culture-Anaerobic See Blood Culture preli minary (test code = 91972-8) Workup for verifi ed result additional was Culture In information. Progress on 04/12/2020 at 18 01 CDT Lab Interpretation Abnormal (test code = 52786-3) [facility] WITH IMAGING 2020-04-18 15:38:00Successful image guided 10 Martiniqu[place] pigtail chest tube insertioninto the left pleural [...] was obtained. Prior to beginning the procedure, [place] Protocolwas performed to confirm the patient's identity [...] pleural space. The tractwas dilated to 10 Martiniquais, and a 10 Martiniquais pigtail chest tube was insertedand coiled within [...] Total monitored sedation time is documented in [facility].TECHNIQUE: The risks, benefits and alternatives were discussed and informedconsent was obtained. Prior to beginning the procedure, [place] Protocolwas performed to confirm the patient's identity [...] pleural space. The tractwas dilated to 10 Martiniquais, and a 10 Martiniquais pigtail chest tube was insertedand coiled within [...] of pleural fluid. IMPRESSIONSuccessful image guided 10 Martiniquais pigtail chest tube insertioninto the left pleural space. PLAN: Post procedure chest radiograph will be obtained.[facility] [id number] 13:37:38 Hazy left midlung opacity, may represent [...] on the left. No acute bony abnormality. [facility], Radiant Results Inft User - 04/18/2020 8:40 [...] reviewed this study and agree with the abovereport.[facility] PAN[facility] (NA, K, CL, CO2, GLUCOSE, BUN, CREATININE, CA)2020-04-18 11:18:00 Test Item Value Reference Range Interpretation Comments NA (test code = 134 mmol/L 135-145 L 8725456227) K (test code = 4.4 mmol/L 3.5-5 3144116911) CL (test code = 102 mmol/L 98-108 9663152872) CO2 TOTAL (test code = 26 mmol/L 23-31 9249790550) AGAP (test code = 2-16 0115988772) BUN (test code = 12 mg/dL 7-23 1465375841) GLUCOSE (test code = 106 mg/dL 70-110 6367418142) CREATININE (test code = 0.74 mg/dL 0.6-1.25 6387607609) CALCIUM (test code = 7.5 mg/dL 8.6-10.6 L 0305393498) eGFR Calculation mL/min/1.73m2 (Non-) (test code = 4065931499) eGFR Calculation mL/min/1.73m2 () (test code = 5110236495) GILBERTO (test code = GILBERTO) Association of [...] tests). Lab Interpretation Abnormal (test code = 66300-0) [facility]2020-[facility]-26 11:18:00 Test Item Value Reference Range Interpretation Comments MAGNESIUM (test code = 2983096993) 2.0 mg/dL 1.7-2.4 Lab Interpretation (test code = Normal 60099-6) [facility]2020-08-26 11:18:00 Test Item Value Reference Range Interpretation Comments PHOSPHORUS (test code = 6481734575) 3.4 mg/dL 2.5-5 Lab Interpretation (test code = Normal 18106-1) [facility] WITH [id number] 10:46:00 Test Item Value Reference Range Interpretation Comments WBC (test code = See_Comment H [Automated 2090-2) message] The system which generated this result transmit dain reference range : 4.20 - 10.70 10*3/?L. The reference range was not used to interpret this result as normal/abnormal . RBC (test code = See_Comment L [Automated 019-8) message] The system which generated this result [...] RDW-SD (test code = 46.5 fL 38.5-51.6 62334-8) RDW-CV (test code = 14.5 % 12.1-15.4 788-0) PLT (test code = See_Comment HH [Automated 777-3) message] The system which generated this result transmit dain reference range : 150 - 328 10*3/ ?L. The reference range was not u sed to interpret th is result as normal/abnormal . MPV (test code = 9.6 fL 9.8-13 L 17371-8) NRBC/100 WBC (test See_Comment [Automat ed code = 6936867989) message] The system which generated this result transmit dain reference range : 0.0 - 10.0 /100 WBCs. The reference range was not used to interpret this result as normal/abnormal . NRBC x10^3 (test code <0.01 See_Comment [Auto mated = 5550257953) message] The system which generated this result transmit dain reference range : 10*3/?L. The reference range was not used to interpret this result as normal/abnormal . GRAN MAT (NEUT) % 82.1 % (test code = 770-8) IMM GRAN % (test code 0.90 % = 5716701676) LYMPH % (test code = 9.2 % 736-9) MONO % (test code = 6.6 % 5905-5) EOS % (test code = 0.7 % 713-8) BASO % (test code = 0.5 % 706-2) GRAN MAT x10^3(ANC) 10.02 10*3/uL 1.99-6.95 H (test code = 8137943772) IMM GRAN x10^3 (test 0.11 10*3/uL 0-0.06 H code = 4377649488) LYMPH x10^3 (test code 1.12 10*3/uL 1.09-3.23 = 731-0) MONO x10^3 (test code 0.80 10*3/uL 0.36-1.02 = 742-7) EOS x10^3 (test code = 0.08 10*3/uL 0.06-0.53 711-2) BASO x10^3 (test code 0.06 10*3/uL 0.01-0.09 = 704-7) Lab Interpretation Abnormal (test code = 54062-3) [facility] CenterBLO[facility] CULTURE [id number] 20:01:00 Test Item Value Reference Range Interpretation Comments Blood Culture-Aerobic No organisms No growth Previo us (test code = 25039-8) isolated prelim inary verified result was Culture [...] Culture-Anaerobic isolated preliminar y (test code = 63993-0) verifi ed result was Culture In Progress [...] CDT Lab Interpretation Normal (test code = 64752-6) [facility] [id number] 19:38:57 FINDINGS/IMPRESSION: There are 2 left-sided chest [...] 2:35 PM on 04/17/[address] Mathieu Chapa.[facility] CenterCyt Pleural [id number] 17:29:00 Test Item Value Reference Range Interpretation Comments Case Report (test code Non-Gynecologic = 3610370843) Cytology ?Case: [id number] ?Authorizing Provider: ?Vance Stafford MD ?Collected: ? 04/16/2020 1650 ?Ordering Location: ? ? Surgery (NADE[facility] 9C) ? Received: ?04/16/2020 1809 ?Pathologist: ? Alice Aj MD ? Specimen: ? ?PLEURAL, LEFT, EFFUSION ? Final Diagnosis (test v5xuvLYjSTMrs3gwOADryJ code = 4387365024) FuZzEwMzNcZnRuYmpcdWMx ZRdskwQqCUnmx5TkZ1YeJi AwMFxhbnNpXGRlZmxhbmcx EXToBFS5vhKkNYEaUKjoQH VnILqxLr3qaONxvKjlQkIo FTHnb0ffvbUHiudioTx3k0 ubYPQzFdR6dOMnRJooS6ng atWmbQQkDARyHPl0oG90CQ LwcZ3xsPTxELbwvqIkDkC7 XKytIKUvXzM5DEOghHArIV BjK6ufFKQhFFmiQKVdRBns xGIvAMX7yJyfj6Z3oQGvaO DcpRezTfMwRbGwEWAMc6He YJw4vFbgV2WoNXSzBhZ2dI QgUGFyYWdyYXBoIEZvbnQ7 jU17QTlucpG0qKOyw1Jqk3 8fa747eG0erSGgHHC7BWKy MBIorEEuQCKmAMM8PTYksY FhK4jpPPitNO9ifyyfKKL2 MFxtYXJndDcyMFxtYXJnYj TuzXGaWBSjxAmbCKpzb687 HHU2NdXdYN2lX4Hif9R1eB 9maXRcZGVmdGFiNzIwXGZv vj6rpLVgMLdxw5SjHHZ2sf F7aYWajMKzJWXdAY72Xhle u6ZeBjzsADL9OHFlizGdf5 Ioh0lwFbAytbZiP3fjF7Rg ZHJoZWFkXHBnYnJkcmZvb3 Ood3IqzCBvuOm1q8jzSDQj XAGzfNykf2qePGO4CYMzW8 Z4oSFkb0ceNIgvHXQviDM2 cnEwTSExpQEvS8UqmR2oHY qpFV5jdsh7n4fmSwYhLX1w ngaiv0siSPnvCIOmDUY8Pj XvHTRcy1EswiotVsRwb2Cb rQIkCOqmC30kb253SGQzlg ErF0tppFUyacvhhCJfytzq YLnhxtP4XRIkduMnrUdavN 9jHeIvIfGnTJqvAD2oLGPp N0eajIWuHBBxXJTeV7pkZx HrcV5zgRcrTLcmJkPlCpJy MFxiIEEuICBQTEVVUkEsIE xEKhP8MAEGH5RIN7JNFWHH SVMgRkxVSURccGFyICAgIC SbYA2oUD6NIGESZNVYEA7Q OQQNCbMIS71XUnOJEDrTHK 5JEBRBC9TYDNoGO3cqYSQr ICAgICAgLSBORUdBVElWRS ROL7LeSLVNLGmRMH5ZLRHR TExTXHBsYWluXGYxXGZzMj BcbGFuZzEwMzNcaGljaFxm YXnsDoRpLOHtDSgbT7rnMq DeXoHqFJWgCYEBNQMGA40G TU9OUEqcTEZ0y9yoeYEsDM CdiKAsPmOtPZRwFNHza3zf ZGVmbGFuZzEwMzNcZnRuYm srqRZiZTMyKqXur0ltw888 hBMpa0lfESViTqE6tCAsHI EepRcorzx1pUxtHnKpVPVh n8zwqqXzPrIpHTGoUXBgAL LkwSQdZ223SGEyDJbma0ob k2IkDRQrvSPpe5E6CZGABT luMiFjK678h0etv7bkqeVo uXD2TSDjSHG0LEpvhwSana Y7LCvciOJjIcR9CVkwkdNw YEdmcsBhrwMvAtv9MVMzM7 02FYN0iGgqb5snEMT0YMPy TDDyTrwyAn6rgLLjZ306HJ VlMEQNCDOtlEu2PDMrueZp gmGboGXVl012B156j9gsGM JfaqCwqWyCewjej6tnK514 XHBhcGVydzEyMjQwXHBhcG VsnPT8ECOxWV0cphpsUUoa JVijLDLcxvA5AHCgbISnV0 VcHQOaER9ugsrpQBU0EKbr GFIxSHF2FvVvLABxd7Qhdl u6YaAola4ctv44UXG8j4Xc mGgiSNP9ZWJ5AwZcDk4luN QkWBLxJC0vBbUmmCWmTWAf no90vLrjKAuyfjJbmR4sEh EeBECmiTPrIHGaNH1bsYJb CWKipK6swjmwJKCgDdCaji iyRWOqgEyaajChZv6rpWyz SSY8CZzeK5uikO7vTdR5ZC mlA3rwpY6cYEe6AJfphSE3 TUNlbR6tTD5fvfgco3jpIZ llUDzxNRIiurA5mqX9LTYk lQDjV9VveA3dOHUtRB7rnb zqn3wdPOU9YJjtTDNwVNZ9 ArXiRMQds3Ivtic2RuVjo0 WkrCYhXClsA46pj386JFTu ioBoY2jgcOXnhbqihEKlrj egZMupljO1BWMbRPOwOLyf XGYxXGZzMjBcbGFuZzEwMz NcaGljaFxmMVxkYmNoXGYx QAnlT5lxMwYkC0HmHJJvBs DnvMSoGCjsnDL7OIXtSLIi l49vkWr8JWArztmjr2XxTR XzbJRzyIJxzT5aikDvf4ja HIQcHVHkOVCeL5YkZZG6vY VcMTPilWKfcLE5HL9sidSb WB0sKXBnUjrgdrAfoKXisv BnNNJfMNgws5itSN7xGATf jSgpxT2ouDC7FLOiv5rgcZ DmrNKiz1nbe5IsycXmVMbz CWZfIWnnQZCdCEDaQY4eDD PlaIXgjcEga1B7IyjupOOl dhlpDpkcdbQ3RPzyrzmgWB GuCSupY8dyVrPiWPPbiMml Hsmgl9VcJYMcWSPyIusskC FyfX0= Final Diagnosis Comment b0pqkWXqYFLgaJGxQpAlOW (test code = BdLTAte0qvGGBaeZEmKwSr 0639727213) MzNcZnRuYmpcdWMxXGRlZm Pqz4dzl187bIXxg3zlTBAc NwE3dUPzAHZveOXfQ156y2 mzt1oahgMpbKB3FNHbLZI6 KFbqdaAifzV7QXozfPYnMq Z1BJvvewXaMWwhlbUcxeQn Zhi2YLBcQ405BOL5tYoby5 nyVGI8JFToPWZmPwKhLy1s qPTfE762RTKcYDNVXROqfV a3TCSjryWumzQvvSHIx540 Z390k4ucGHWjbzKjvQzPcv gob0orO660SOWhkSBgupJn RdOsYRTjhCLbvOT4MCKoPR 3mutlpKPN4GAkvFBVpupOa RDZamLCzT7Z9ZsSdpSFyP6 KyFPcdOIGwlwm9WlZrYp4r nXSowBR3AUioa8klu1jegJ WnJwi4XONsHaAxYrdnDWpn p6Zmw5sbDGFcne9bWKK7uL MkoRbdz5P2yTKiFLZmnOQa zzGyUAGrVhR7XWxtXK5bup 02LKGwTOB1mj8bfDBvuHyu hrElxBMrRYwiD2JuVAErd6 56CDQrS3DaRVYgp4H5nkQx OgUxCBYvgJF1jvA7VVAlAC g6iHUxedA3jcRmeRIsP1am fU4fJRopRG6siyajm5ksLR U1BUbaSJHjdYU6pjahDNwr LVRuVfU7xjHgfLFtQVBnbL ybHUgtw324ITY3WsAqKTSd z3VcZ7ZqdAuoI99kfMjeJ5 5qDCYcoMrjvI7teCkygO8c ZjBcZnMyNFxxbFxwbGFpbl xmMFxmczIwXGxhbmcxMDMz XUpoQ4byTfWrDFRbkOyyLA ylf0CzCDVnAMWdOgDsU34w ZVWee0yxp5HlbJy7TRCanQ 7wzWXdiTG2tH3iWOwogHtl mZUdDP3dmV9rrxOjzEDpXR O3qo5ctMoidbmzKrV5FOo2 wLPbm2Y3oTGwMPSxXHHyvH DokT3fGBOet97mtTN6WV76 MGpioJumVY3fkFZzAB9hEg 1zyTOwpJrbXW29KRNllLer IRvtCP85lBYqSQDvRCqlNE J9 Clinical Information Clinical Hx: ?Total (test code = colectomy complicated 7980391833) . Requested per consulting surgery team. Gross Description (test r4yleUXfZZZayEKqSfEfQJ code = 2121221113) XyCBMoe5cdPLKqyNUiXxEt MzNcZnRuYmpcdWMxXGRlZm Fxr7nuw795qDAqe5igPBYj JdY4pHKdTBVhrMOpT074k8 ncu7illoHqoVM6MGWbLQM2 TIffseXgjjD4MIilsQMoLw N7BGhfviNmNXqjntWzkcAm Smp9ZWMlX519XNV7bLecb4 rdULP0TOHkDZYcSdAwRy0t nTVgY045GWIiXTODEBQlrQ b9OQUpdtTtfuBgdBOFh038 X342e0yqRHPsupUvrRkIkd kml5tjA393IVGatTJshmHv JfTwZLUgqWIniCA8ORZiMC 1wzlasYJI0VZaaTHSzfiQs RHIyqMMpX9Q3VaAwdWEzH7 JrXXamDXAaryx7FvKaMb4v rQQbaMO7DSddf9wbc0rtpI GiIey2TZMmWqZfBwlaCOwf z4Sah5naUXCmlt0hKLJ7rO YbmQklw9S7rBGrZVMjwVAa wnOtAVHuOmP8PUzpSO5xaf 35PEIkRAQ0lk1moTMxiKyf njTpxFDkTExrQ1PcQLUri0 75ESRfE4ZbGEWck0D9bqGe XsGsINTlsFV4nrY7QKGvLD i4bQLtroL4txHfjMOyB7pe eP3eEBtrYE3cjzjxr2eoJB P5PYioDXQjtWK4zcozGZvj QGAlDoV7hvAlfYCzRCNroT zzAGvmx118VLT3FwJzQZOz u0HhO5UdfXsvI81kzFqqW5 2jSHMohTlehE4ihJftlE4r ZjBcZnMyNFxxbFxwbGFpbl xmMFxmczIwXGxhbmcxMDMz YNkbS0prGjDdYZIngOgmPM xwf3GgYHXaJUIaErTlIRZz XAGPTBYPPcKnAOiQCgF6HV BUH5XHW4YXILECLBLoWbyP PJGlwYOkEBJvF9QzpyRdHX UlCHPhMYxzPIUiLLXhW9Jz m3XovZVbhO14ALOxpFhsLU xwYXIgUHJlcGFyZWQgMiBz sJsaOJEmRWNfZINhVV1tY3 5tBV09DFK4lI3snUxmQALt vtLvUZFPx80yqn27b4e7EE Z2cO1lsPmbZEUmAKAlgcP6 jS9rSDaxDNC8 Embedded Images (test code = 6017344549) [facility] [id number] 13:05:21EXAM: XR CHEST 1 VW HISTORY: post [...] different than noted yesterday.[facility] WITH [id number] 11:18:00 Test Item Value Reference Range Interpretation [...] RDW-SD (test code = 47.8 fL 38.5-51.6 62258-4) RDW-CV (test code = 14.7 % 12.1-15.4 788-0) PLT (test code = See_Comment HH [Automated 777-3) message] The system which generated this result transmit dain reference range : 150 - 328 10*3/ ?L. The reference range was not u sed to interpret th is result as normal/abnormal . MPV (test code = 9.9 fL 9.8-13 97381-9) NRBC/100 WBC (test See_Comment [Automat ed code = 1502048142) message] The system which generated this result transmit dain reference range : 0.0 - 10.0 /100 WBCs. The reference range was not used to interpret this result as normal/abnormal . NRBC x10^3 (test code <0.01 See_Comment [Auto mated = 5249379961) message] The system which generated this result transmit dain reference range : 10*3/?L. The reference range was not used to interpret this result as normal/abnormal . GRAN MAT (NEUT) % 81.7 % (test code = 770-8) IMM GRAN % (test code 1.10 % = 1540504940) LYMPH % (test code = 9.1 % 736-9) MONO % (test code = 7.3 % 5905-5) EOS % (test code = 0.5 % 713-8) BASO % (test code = 0.3 % 706-2) GRAN MAT x10^3(ANC) 10.91 10*3/uL 1.99-6.95 H (test code = 3604846082) IMM GRAN x10^3 (test 0.15 10*3/uL 0-0.06 H code = 6962495720) LYMPH x10^3 (test code 1.21 10*3/uL 1.09-3.23 = 731-0) MONO x10^3 (test code 0.97 10*3/uL 0.36-1.02 = 742-7) EOS x10^3 (test code = 0.07 10*3/uL 0.06-0.53 711-2) BASO x10^3 (test code 0.04 10*3/uL 0.01-0.09 = 704-7) Lab Interpretation Abnormal (test code = 63648-7) [facility] METABOLIC PANEL (NA, K, CL, CO2, GLUCOSE, BUN, CREATININE, CA)2020-04-17 10:49:00 Test Item Value Reference Range Interpretation Comments NA (test code = 134 mmol/L 135-145 L 6856069445) K (test code = 4.2 mmol/L 3.5-5 4188598369) CL (test code = 103 mmol/L 98-108 8048904749) CO2 TOTAL (test code = 26 mmol/L 23-31 0123888615) AGAP (test code = 2-16 7269279591) BUN (test code = 12 mg/dL 7-23 6272463849) GLUCOSE (test code = 107 mg/dL 70-110 7156337003) CREATININE (test code = 0.74 mg/dL 0.6-1.25 2869051102) CALCIUM (test code = 7.8 mg/dL 8.6-10.6 L 7315223455) eGFR Calculation mL/min/1.73m2 (Non-) (test code = 0772487099) eGFR Calculation mL/min/1.73m2 () (test code = 2095214677) GILBERTO (test code = GILBERTO) Association of [...] tests). Lab Interpretation Abnormal (test code = 69373-2) [facility] 10:49:00 Test Item Value Reference Range Interpretation Comments MAGNESIUM (test code = 9912120902) 2.3 mg/dL 1.7-2.4 Lab Interpretation (test code = Normal 45916-3) [facility]2020-08-25 10:49:00 Test Item Value Reference Range Interpretation Comments PHOSPHORUS (test code = 8947400971) 3.8 mg/dL 2.5-5 Lab Interpretation (test code = Normal 48537-7) [facility] CenterLDH TOTAL BODY [id number] 00:37:00 Test Item Value Reference Range Interpretation Comments LDH BF (test code = 3707 U/L 7592336162) UNSPUN BODY FLUID Light Yellow COLOR (test code = 9745389791) UNSPUN BODY FLUID Clear CLARITY (test code = 3826335659) SPUN BODY FLUID Light Yellow COLOR (test code = 2175040348) SPUN BODY FLUID Clear CLARITY (test code = 4973155150) Sediment (test code The sediment volume is 0.1 = 3654447634) mLs of the total fluid volume of 3mLs and its color is white. GILBERTO (test code = Test developed and GILBERTO) characteristics determined by [facility] Services. [facility] 1 [id number] 00:22:53 1. ?Left lower lung zone 2 [...] compared to 817 with a possible small pneumothorax.[facility] Center[facility]ODY FLUID DIRECT [id number] 00:10:00 Test Item Value Reference Range Interpretation Comments BF COLOR Light Yellow (test code = 1794009394) BF WBC Count See_Comment [Automated (test code = message] The sy stem 0240103978) which generated this result transmitted reference range : /?L. The refere nce range was not u sed to interpret th is result as normal/abnormal . BF RBC Count <3000 See_Comment [Automated (test code = message] The sy stem 2067572203) which generated this result transmitted reference range : /?L. The refere nce range was not u sed to interpret th is result as normal/abnormal . GILBERTO (test The reference range code = GILBERTO) and other method performance specifications have not been established for this body fluid. ?The test results must be integrated into the clinical context for interpretation. [facility] Center[facility] FLUID MANUAL [id number] 00:10:00 Test Item Value Reference Range Interpretation Comments BF SEGS (test code = 2765236038) 78 % MACROPHAGE (test code = 8112445721) 22 % #CELS CNTD (test code = 1685115187) [facility] CenterAmylase Body [id number] 00:03:00 Test Item Value Reference Range Interpretation Comments AMYLASE BF (test 313 U/L code = 8856199448) UNSPUN BODY FLUID Yellow COLOR (test code = 2813272909) UNSPUN BODY FLUID Clear CLARITY (test code = 9015449863) SPUN BODY FLUID Yellow COLOR (test code = 4857930694) SPUN BODY FLUID Clear CLARITY (test code = 3935115761) Sediment (test code The sediment volume is = 5247029671) <0.1 mLs of the total fluid volume of 1mL and its color is red. GILBERTO (test code = Test developed and GILBERTO) characteristics determined by [facility] Services. [facility] CenterGlucose Body [id number] 00:03:00 Test Item Value Reference Range Interpretation Comments GLUCOSE BF (test 57 mg/dL code = 1670799979) UNSPUN BODY FLUID Yellow COLOR (test code = 0380665907) UNSPUN BODY FLUID Clear CLARITY (test code = 7298364927) SPUN BODY FLUID Yellow COLOR (test code = 3019916872) SPUN BODY FLUID Clear CLARITY (test code = 7847873002) Sediment (test code The sediment volume is = 4782633459) <0.1 mLs of the total fluid volume of 1mL and its color is red. GILBERTO (test code = Test developed and GILBERTO) characteristics determined by [facility]. [facility] CenterTotal Protein Body [id number] 00:03:00 Test Item Value Reference Range Interpretation Comments T.PROT BF (test 3000.0 mg/dL code = 5665480715) UNSPUN BODY FLUID Yellow COLOR (test code = 5581241826) UNSPUN BODY FLUID Clear CLARITY (test code = 2066526296) SPUN BODY FLUID Yellow COLOR (test code = 7227425095) SPUN BODY FLUID Clear CLARITY (test code = 1923013108) Sediment (test code The sediment volume is = 0472189538) <0.1 mLs of the total fluid volume of 1mL and its color is red. GILBERTO (test code = Test developed and GILBERTO) characteristics determined by [facility]. [facility] CenterPH, Body [id number] 23:56:00 Test Item Value Reference Range Interpretation Comments PH BF (test code = 5505612103) UNSPUN BODY FLUID COLOR Light Yellow (test code = 0842508531) UNSPUN BODY FLUID Clear CLARITY (test code = 8074932449) SPUN BODY FLUID COLOR Light Yellow (test code = 9921844320) SPUN BODY FLUID CLARITY Clear (test code = 2819872486) Sediment (test code = The sediment volume is 7032586963) 0.1 mLs of the total fluid volume of 5.5mLs and its color is white/red. [facility] CenterIR DRAINAGE BY CATHETER PERITONEAL OR [id number] 21:10:26 Successful placement of a 12 Martiniquais drain in the left upper quadrantcollection. Successful placement of a 14 Martiniquais drain in the midline air fluidcollection. Successful placement of a 10 Martiniquais drain in the right lower quadrant fluidcollection. [...] those actually performingthe procedure. Please refer to [facility] regarding sedation time. RADIATION DOSE: 1957 mGy - cm. TECHNIQUE: The risks, benefits and alternatives were discussed and informed consentwas obtained. Prior to beginning the procedure, [place] Protocol was usedto confirm the patient's identity and planned procedure. Maximum sterilebarriers including cap, mask, hand hygiene, sterile gloves, sterile gown,large sterile drape and cutaneous antisepsis were used. The anteriorabdominal wall was sterilely prepped, and draped. The skinoverlying the left upper, right upper, andright lower quadrants wasinfiltrated with lidocaine 2%. The targeted collection in the left upper quadrant was then accessed with j17-rezfz quadrant needle using CT guidance. A 0.035 Amplatz wire wasadvanced through the coaxial needle. The tract was serially dilated to 12French. A pigtail 12 Martiniquais catheter was placed in the left upper quadrantcollection. Approximately, 210 cc of purulent fluid was removed. The air-fluid collection in the mid abdomen was accessed through the rightupper quadrant. An 18 Martiniquais pigtail catheter was placed in this collectionunder CT guidance in a similar fashion to thedrain and left upperquadrant. Approximately, 1250 cc of purulent material were removed. The fluid collection in the right lower quadrant was also accessed in asimilar fashion. A 10 Martiniquais pigtail catheter was placed in this collectionunder [...] those actually performingthe procedure. Please refer to [facility] regarding sedation time.RADIATION DOSE: 1957 mGy - cm.TECHNIQUE: The risks, benefits and alternatives were d iscussed and informed consentwas obtained. Prior to beginning the procedure, [place] Protocol was usedto confirm the patient's identity [...] serially dilated to 12French. A pigtail 12 Martiniquais catheter was placed in the left upper quadrantcollection. Approximately, 210 cc of purulent fluid was removed.The air-fluid collection in the mid abdomen was accessed through the rightupper quadrant. An 18 Martiniquais pigtail catheter was placed in this collectionunder CT guidance in a similar fa shion to the drain and left upperquadrant. Approximately, 1250 cc of purulent material were removed.The fluid collection in the right lower quadrant was also accessed in asimilar fashion. A 10 Martiniquais pigtail catheter was placed in this collectionunder [...] left upper quadrantcollection.Successful placement of a 14 Martiniquais drain in the midline air fluidcollection.Successful placement of a 10 Martiniquais drain in the right lower quadrant fluidcollection.Preliminary Report Dictated by Resident: Hayden Murphy the attending radiologist I was present in the room for the entirety ofthe procedure.I, Neris Grier MD., have reviewed this study and agree with the abovereport.[facility]OBIC)2020-04-16 19:45:00 Test Item Value Reference Range Interpretation Comments BODY FLUID CULT 2+ Bacteroides fragillis (test code = 611-4) Gram stain (test Occasional (Rare) code = 664-3) Mononuclear cells [facility] / [id number] 16:38:00 Test Item Value Reference Range Interpretation Comments PROTIME PATIENT (test See_Comment H [Auto mated message] code = 5964-2) The system [employer] generated this result transmitted ref erence range: 10.1 - 1 2.6 Seconds. The reference range was not used to int erpret this result as normal/abnormal . INR (test code = 6301-6) Nor mal INR <1.1; Warfarin Therap eutic range 2.0 to 3. 0 or 2.5 to 3.5, dep ending upon the indica tions. Lab Interpretation (test Abnormal code = 65653-1) [facility] W [id number] 13:40:08Impression: 1. ?Interval placement of 4 percutaneous [...] and oral contrast seen up to the ostomy.[facility] METABOLIC PANEL (NA, K, CL, CO2, GLUCOSE, BUN, CREATININE, CA)2020-04-16 10:51:00 Test Item Value Reference Range Interpretation Comments NA (test code = 132 mmol/L 135-145 L 5546691170) K (test code = 4.1 mmol/L 3.5-5 4592134680) CL (test code = 103 mmol/L 98-108 8396615942) CO2 TOTAL (test code = 24 mmol/L 23-31 0403150843) AGAP (test code = 2-16 2134908247) BUN (test code = 13 mg/dL 7-23 0275844977) GLUCOSE (test code = 132 mg/dL 70-110 H 2293608147) CREATININE (test code = 0.77 mg/dL 0.6-1.25 2611840755) CALCIUM (test code = 7.4 mg/dL 8.6-10.6 L 6349817614) eGFR Calculation mL/min/1.73m2 (Non-) (test code = 9850141263) eGFR Calculation mL/min/1.73m2 () (test code = 4035210126) GILBERTO (test code = GILBERTO) Association of [...] tests). Lab Interpretation Abnormal (test code = 56585-0) [facility]2020-[facility] 10:51:00 Test Item Value Reference Range Interpretation Comments MAGNESIUM (test code = 1354045094) 2.2 mg/dL 1.7-2.4 Lab Interpretation (test code = Normal 27139-5) [facility]2020-[facility] 10:51:00 Test Item Value Reference Range Interpretation Comments PHOSPHORUS (test code = 7039949843) 3.1 mg/dL 2.5-5 Lab Interpretation (test code = Normal 09246-3) [facility]CBC WITH [id number] 10:37:00 Test Item Value Reference Range Interpretation Comments WBC (test code = See_Comment H [Automated 1890-2) message] The system which generated this result [...] RDW-SD (test code = 47.4 fL 38.5-51.6 67389-7) RDW-CV (test code = 14.7 % 12.1-15.4 788-0) PLT (test code = See_Comment H [Automated 777-3) message] The system which generated this result transmit dain reference range : 150 - 328 10*3/ ?L. The reference range was not u sed to interpret th is result as normal/abnormal . MPV (test code = 10.1 fL 9.8-13 70361-4) NRBC/100 WBC (test See_Comment [Automat ed code = 5020077405) message] The system which generated this result transmit dain reference range : 0.0 - 10.0 /100 WBCs. The reference range was not used to interpret this result as normal/abnormal . NRBC x10^3 (test code <0.01 See_Comment [Auto mated = 3295156404) message] The system which generated this result transmit dain reference range : 10*3/?L. The reference range was not used to interpret this result as normal/abnormal . GRAN MAT (NEUT) % 83.0 % (test code = 770-8) IMM GRAN % (test code 1.50 % = 1050481068) LYMPH % (test code = 7.6 % 736-9) MONO % (test code = 7.3 % 5905-5) EOS % (test code = 0.3 % 713-8) BASO % (test code = 0.3 % 706-2) GRAN MAT x10^3(ANC) 11.53 10*3/uL 1.99-6.95 H (test code = 0444127142) IMM GRAN x10^3 (test 0.21 10*3/uL 0-0.06 H code = 6975833686) LYMPH x10^3 (test code 1.05 10*3/uL 1.09-3.23 L = 731-0) MONO x10^3 (test code 1.01 10*3/uL 0.36-1.02 = 742-7) EOS x10^3 (test code = 0.04 10*3/uL 0.06-0.53 L 711-2) BASO x10^3 (test code 0.04 10*3/uL 0.01-0.09 = 704-7) Lab Interpretation Abnormal (test code = 28970-4) [facility] METABOLIC PANEL (NA, K, CL, CO2, GLUCOSE, BUN, CREATININE, CA)2020-04-15 11:01:00 Test Item Value Reference Range Interpretation Comments NA (test code = 132 mmol/L 135-145 L 4761675380) K (test code = 4.7 mmol/L 3.5-5 5654840026) CL (test code = 103 mmol/L 98-108 5391462913) CO2 TOTAL (test code = 22 mmol/L 23-31 L 2001519761) AGAP (test code = 2-16 1042581710) BUN (test code = 14 mg/dL 7-23 4387925130) GLUCOSE (test code = 114 mg/dL 70-110 H 5017999258) CREATININE (test code = 0.74 mg/dL 0.6-1.25 4542958702) CALCIUM (test code = 7.9 mg/dL 8.6-10.6 L 5321067421) eGFR Calculation mL/min/1.73m2 (Non-) (test code = 7341251401) eGFR Calculation mL/min/1.73m2 () (test code = 0596711844) GILBERTO (test code = GILBERTO) Association of [...] tests). Lab Interpretation Abnormal (test code = 11684-0) [facility]00 Test Item Value Reference Range Interpretation Comments MAGNESIUM (test code = 2940426244) 2.1 mg/dL 1.7-2.4 Lab Interpretation (test code = Normal 74363-5) [facility] 11:01:00 Test Item Value Reference Range Interpretation Comments PHOSPHORUS (test code = 4723535318) 3.4 mg/dL 2.5-5 Lab Interpretation (test code = Normal 85603-0) [facility] [id number] 10:46:00 Test Item Value Reference Range Interpretation [...] RDW-SD (test code = 47.7 fL 38.5-51.6 47101-1) RDW-CV (test code = 15.0 % 12.1-15.4 788-0) PLT (test code = See_Comment H [Automated 777-3) message] The system which generated this result transmit dain reference range : 150 - 328 10*3/ ?L. The reference range was not u sed to interpret th is result as normal/abnormal . MPV (test code = 10.4 fL 9.8-13 26652-8) NRBC/100 WBC (test See_Comment [Automat ed code = 4233669863) message] The system which generated this result transmit dain reference range : 0.0 - 10.0 /100 WBCs. The reference range was not used to interpret this result as normal/abnormal . NRBC x10^3 (test code <0.01 See_Comment [Auto mated = 2644869118) message] The system which generated this result transmit dain reference range : 10*3/?L. The reference range was not used to interpret this result as normal/abnormal . GRAN MAT (NEUT) % 85.0 % (test code = 770-8) IMM GRAN % (test code 1.10 % = 2235263517) LYMPH % (test code = 7.2 % 736-9) MONO % (test code = 6.4 % 5905-5) EOS % (test code = 0.1 % 713-8) BASO % (test code = 0.2 % 706-2) GRAN MAT x10^3(ANC) 14.87 10*3/uL 1.99-6.95 H (test code = 3624366383) IMM GRAN x10^3 (test 0.20 10*3/uL 0-0.06 H code = 3047372456) LYMPH x10^3 (test code 1.25 10*3/uL 1.09-3.23 = 731-0) MONO x10^3 (test code 1.11 10*3/uL 0.36-1.02 H = 742-7) EOS x10^3 (test code = <0.03 0.06-0.53 L 711-2) BASO x10^3 (test code 0.03 10*3/uL 0.01-0.09 = 704-7) Lab Interpretation Abnormal (test code = 31329-1) [facility] METABOLIC PANEL (NA, K, CL, CO2, GLUCOSE, BUN, CREATININE, CA)2020-04-14 12:15:00 Test Item Value Reference Range Interpretation Comments NA (test code = 134 mmol/L 135-145 L 5381163131) K (test code = 4.9 mmol/L 3.5-5 3018536282) CL (test code = 105 mmol/L 98-108 6276134481) CO2 TOTAL (test code = 23 mmol/L 23-31 2068906275) AGAP (test code = 2-16 5467533095) BUN (test code = 16 mg/dL 7-23 1162813668) GLUCOSE (test code = 102 mg/dL 70-110 1056848566) CREATININE (test code = 0.82 mg/dL 0.6-1.25 4599695680) CALCIUM (test code = 7.9 mg/dL 8.6-10.6 L 9614612886) eGFR Calculation mL/min/1.73m2 (Non-) (test code = 9405789342) eGFR Calculation mL/min/1.73m2 () (test code = 3464166610) GILBERTO (test code = GILBERTO) Association of [...] tests). Lab Interpretation Abnormal (test code = 63422-1) [facility] 12:15:00 Test Item Value Reference Range Interpretation Comments MAGNESIUM (test code = 8149754986) 2.1 mg/dL 1.7-2.4 Lab Interpretation (test code = Normal 93747-0) [facility] 12:15:00 Test Item Value Reference Range Interpretation Comments PHOSPHORUS (test code = 2527255664) 4.2 mg/dL 2.5-5 Lab Interpretation (test code = Normal 76038-0) [facility] [id number] 11:49:00 Test Item Value Reference Range Interpretation Comments WBC (test code = See_Comment H [Automated 9790-2) message] The system which generated this result [...] RDW-SD (test code = 48.1 fL 38.5-51.6 26935-9) RDW-CV (test code = 15.1 % 12.1-15.4 788-0) PLT (test code = See_Comment H [Automated 777-3) message] The system which generated this result transmit dain reference range : 150 - 328 10*3/ ?L. The reference range was not u sed to interpret th is result as normal/abnormal . MPV (test code = 10.7 fL 9.8-13 25664-9) NRBC/100 WBC (test See_Comment [Automat ed code = 0695840350) message] The system which generated this result transmit dain reference range : 0.0 - 10.0 /100 WBCs. The reference range was not used to interpret this result as normal/abnormal . NRBC x10^3 (test code <0.01 See_Comment [Auto mated = 5029112754) message] The system which generated this result transmit dain reference range : 10*3/?L. The reference range was not used to interpret this result as normal/abnormal . GRAN MAT (NEUT) % 84.4 % (test code = 770-8) IMM GRAN % (test code 1.10 % = 0280281694) LYMPH % (test code = 7.4 % 736-9) MONO % (test code = 6.8 % 5905-5) EOS % (test code = 0.1 % 713-8) BASO % (test code = 0.2 % 706-2) GRAN MAT x10^3(ANC) 13.45 10*3/uL 1.99-6.95 H (test code = 4060581792) IMM GRAN x10^3 (test 0.18 10*3/uL 0-0.06 H code = 7648946340) LYMPH x10^3 (test code 1.18 10*3/uL 1.09-3.23 = 731-0) MONO x10^3 (test code 1.09 10*3/uL 0.36-1.02 H = 742-7) EOS x10^3 (test code = <0.03 0.06-0.53 L 711-2) BASO x10^3 (test code 0.03 10*3/uL 0.01-0.09 = 704-7) Lab Interpretation Abnormal (test code = 84663-6) [facility] TOTAL BODY [id number] 01:27:00 Test Item Value Reference Range Interpretation Comments LDH BF (test code = >6450 U/L 1850504783) UNSPUN BODY FLUID Yellow COLOR (test code = 1651184980) UNSPUN BODY FLUID Turbid CLARITY (test code = 4585966821) SPUN BODY FLUID Yellow COLOR (test code = 1496612217) SPUN BODY FLUID Clear CLARITY (test code = 6630840280) Sediment (test code The sediment volume is 0.1 = 5826364098) mLs of the total fluid volume of 5mLs and its color is Red/White. GILBERTO (test code = Test developed and GILBERTO) characteristics determined by [facility] Laboratory Services. [facility] METABOLIC PANEL (NA, K, CL, CO2, GLUCOSE, BUN, CREATININE, CA)2020-04-14 00:15:00 Test Item Value Reference Range Interpretation Comments NA (test code = 132 mmol/L 135-145 L 1962610801) K (test code = 5.3 mmol/L 3.5-5 H 0399852602) CL (test code = 105 mmol/L 98-108 3943861283) CO2 TOTAL (test code = 20 mmol/L 23-31 L 1144355027) AGAP (test code = 2-16 6796236449) BUN (test code = 14 mg/dL 7-23 2153778501) GLUCOSE (test code = 280 mg/dL 70-110 H 3146248259) CREATININE (test code = 0.75 mg/dL 0.6-1.25 9658798015) CALCIUM (test code = 7.4 mg/dL 8.6-10.6 L 7084744144) eGFR Calculation mL/min/1.73m2 (Non-) (test code = 0373124146) eGFR Calculation mL/min/1.73m2 () (test code = 4820768218) GILBERTO (test code = GILBERTO) Association of [...] tests). Lab Interpretation Abnormal (test code = 72828-2) [facility] WITHOUT [id number] 00:01:00 Test Item Value Reference Range Interpretation Comments WBC (test code = 6690-2) See_Comment H [A utomated message] The system [employer] generated this result transmit dain reference range : 4.20 - 10.70 10*3/?L. The reference range was not used to interpret this result as normal/abnormal . RBC (test code = 789-8) See_Comment L [Au tomated message] The system [employer] generated this result transmit dain reference range [...] See_Comment H [Au tomated message] The system [employer] generated this result transmit dain reference range : 150 - 328 10*3/?L. The reference range was not used to interpret this result as normal/abnormal . MPV (test code = 10.2 fL 9.8-13 36838-5) RDW-CV (test code = 15.3 % 12.1-15.4 788-0) RDW-SD (test code = 49.1 fL 38.5-51.6 87011-3) NRBC x10^3 (test code = <0.01 See_Comment [Au tomated message] 6087953205) The system [employer] generated this result transmit dain reference range : 10*3/?L. The reference range was not used to interpret this result as normal/abnormal . NRBC/100 WBC (test code See_Comment [Au tomated message] = 6932614904) The system [facility] generated this result transmit dain reference range : 0.0 - 10.0 /100 WBC s. The reference r meredith was not used to interpret this result as normal/abnormal . IPF % (test code = 7573033070) Lab Interpretation (test Abnormal code = 05489-4) [facility] [id number] 23:40:00 Test Item Value Reference Range Interpretation Comments BF COLOR Yellow (test code = 9955111946) BF WBC Count See_Comment [Automated (test code = message] The sy stem 1427358838) which generated this result transmitted reference range : /?L. The refere nce range was not u sed to interpret th is result as normal/abnormal . BF RBC Count <3000 See_Comment [Automated (test code = message] The sy stem 7466568080) which generated this result transmitted reference range : /?L. The refere nce range was not u sed to interpret th is result as normal/abnormal . GILBERTO (test The reference range code = GILBERTO) and other method performance specifications have not been established for this body fluid. ?The test results must be integrated into the clinical context for interpretation. [facility] MANUAL [id number] 23:40:00 Test Item Value Reference Range Interpretation Comments BF SEGS (test code 99 % = 6592317915) BF LYMPHS (test 1 % code = 9195816612) #CELS CNTD (test code = 6254694398) GILBERTO (test code = Possible intracellular GILBERTO) bacteria. [facility] CenterGLUCOSE BODY [id number] 23:17:00 Test Item Value Reference Range Interpretation Comments GLUCOSE BF (test <20 mg/dL code = 4357365676) UNSPUN BODY FLUID Yellow COLOR (test code = 9714319423) UNSPUN BODY FLUID Turbid CLARITY (test code = 2498028735) SPUN BODY FLUID Yellow COLOR (test code = 2017251331) SPUN BODY FLUID Clear CLARITY (test code = 1473244539) Sediment (test code The sediment volume is 0.1 = 9924951743) mLs of the total fluid volume of 5mLs and its color is Red/White. GILBERTO (test code = Test developed and GILBERTO) characteristics determined by [facility] Laboratory Services. [facility] CenterT.PROTEIN BODY [id number] 22:52:00 Test Item Value Reference Range Interpretation Comments T.PROT BF (test 3000.0 mg/dL code = 2329383709) UNSPUN BODY FLUID Yellow COLOR (test code = 6762720977) UNSPUN BODY FLUID Turbid CLARITY (test code = 0695101402) SPUN BODY FLUID Yellow COLOR (test code = 7882671792) SPUN BODY FLUID Clear CLARITY (test code = 1785368305) Sediment (test code The sediment volume is 0.1 = 6790678216) mLs of the total fluid volume of 5mLs and its color is Red/White. GILBERTO (test code = Test developed and GILBERTO) characteristics determined by [facility] Laboratory Services. [facility] CenterURINE [id number] 19:44:00 Test Item Value Reference Range Interpretation Comments URINE CULTURE (test No aerobic growth (< code = 630-4) 1000 CFU/mL) [facility]GRAM NEGATIVE BLOOD PATHOGENS DNA [id number] 13:23:00 Test Item Value Reference Range Interpretation Comments Enterobacter species Positive Negative A (test code = 08124-8) GILBERTO (test code = GILBERTO) See blood culture result for additional information. ?Testing included eight identification and six resistance marker targets. Lab Interpretation Abnormal (test code = 58101-6) [facility] WITH [id number] 12:43:00 Test Item Value Reference Range Interpretation [...] RDW-SD (test code = 49.8 fL 38.5-51.6 64295-4) RDW-CV (test code = 15.3 % 12.1-15.4 788-0) PLT (test code = See_Comment H [Automated 777-3) message] The system which generated this result transmit dain reference range : 150 - 328 10*3/ ?L. The reference range was not u sed to interpret th is result as normal/abnormal . MPV (test code = 10.7 fL 9.8-13 58660-4) NRBC/100 WBC (test See_Comment [Automat ed code = 3032036446) message] The system which generated this result transmit dain reference range : 0.0 - 10.0 /100 WBCs. The reference range was not used to interpret this result as normal/abnormal . NRBC x10^3 (test code <0.01 See_Comment [Auto mated = 5594829768) message] The system which generated this result transmit dain reference range : 10*3/?L. The reference range was not used to interpret this result as normal/abnormal . GRAN MAT (NEUT) % 81.3 % (test code = 770-8) IMM GRAN % (test code 1.40 % = 9304725747) LYMPH % (test code = 8.0 % 736-9) MONO % (test code = 8.9 % 5905-5) EOS % (test code = 0.2 % 713-8) BASO % (test code = 0.2 % 706-2) GRAN MAT x10^3(ANC) 10.74 10*3/uL 1.99-6.95 H (test code = 1194536251) IMM GRAN x10^3 (test 0.18 10*3/uL 0-0.06 H code = 9654206626) LYMPH x10^3 (test code 1.06 10*3/uL 1.09-3.23 L = 731-0) MONO x10^3 (test code 1.17 10*3/uL 0.36-1.02 H = 742-7) EOS x10^3 (test code = <0.03 0.06-0.53 L 711-2) BASO x10^3 (test code <0.03 0.01-0.09 = 704-7) Lab Interpretation Abnormal (test code = 30272-1) [facility] METABOLIC PANEL (NA, K, CL, CO2, GLUCOSE, BUN, CREATININE, CA)2020-04-13 11:57:00 Test Item Value Reference Range Interpretation Comments NA (test code = 134 mmol/L 135-145 L 9932310894) K (test code = 4.6 mmol/L 3.5-5 2261203240) CL (test code = 106 mmol/L 98-108 9031626336) CO2 TOTAL (test code = 23 mmol/L 23-31 1544009908) AGAP (test code = 2-16 7312634210) BUN (test code = 14 mg/dL 7-23 3002313606) GLUCOSE (test code = 106 mg/dL 70-110 3705816592) CREATININE (test code = 0.84 mg/dL 0.6-1.25 2360662673) CALCIUM (test code = 7.7 mg/dL 8.6-10.6 L 2100568625) eGFR Calculation mL/min/1.73m2 (Non-) (test code = 4601599836) eGFR Calculation mL/min/1.73m2 () (test code = 5774090917) GILBERTO (test code = GILBERTO) Association of [...] tests). Lab Interpretation Abnormal (test code = 20478-7) [facility] 11:57:00 Test Item Value Reference Range Interpretation Comments MAGNESIUM (test code = 0078517027) 2.1 mg/dL 1.7-2.4 Lab Interpretation (test code = Normal 75082-6) [facility]2020-[facility] 11:57:00 Test Item Value Reference Range Interpretation Comments PHOSPHORUS (test code = 9282382619) 3.4 mg/dL 2.5-5 Lab Interpretation (test code = Normal 65485-5) [facility] CenterCT ABDOMEN PELVIS W [id number] 00:22:08 1. ?Multiple intraperitoneal collections as detailed [...] this study and agree with the abovereport. [facility]URINALYSIS2020-[facility] 23:20:00 Test Item Value Reference Range Interpretation Comments APPEARANCE (test code = Clear Clear 3958407779) COLOR (test code = Yellow Yellow 2325615335) PH (test code = 4.8-8.0 2103289875) SP GRAVITY (test code = 1.003-1.030 1708211039) GLU U QUAL (test code = Normal Normal 2355737975) BLOOD (test code = Negative Negative 6763312823) KETONES (test code = Negative Negative 5549865180) PROTEIN (test code = 30 mg/dL Negative A 2887-8) UROBILIN (test code = Normal Normal 2914533114) BILIRUBIN (test code = Negative Negative 4383749742) NITRITE (test code = Negative Negative 5286984419) LEUK ROGER (test code = Negative Negative 6327043344) RBC/HPF (test code = See_Comment [Autom ated message] 7481898371) The system [employer] generated this result transmitted ref erence range: 0 - 3 HP F. The reference range was not used to int erpret this result as normal/abnormal . WBC/HPF (test code = <1 See_Comment [Autom ated message] 6446795421) The system [employer] generated this result transmitted ref erence range: 0 - 5 HP F. The reference range was not used to int erpret this result as normal/abnormal . BACTERIA (test code = Negative Negative 4437308468) MUCOUS (test code = Slight Negative LPF A 3273204227) SQ EPITH (test code = See_Comment [Auto mated message] 8017122774) The system [employer] generated this result transmitted ref erence range: <=2 HPF. The reference range was not used to int erpret this result as normal/abnormal . Lab Interpretation (test Abnormal code = 84041-3) [facility] WITH [id number] 12:08:00 Test Item Value Reference Range Interpretation [...] RDW-SD (test code = 48.9 fL 38.5-51.6 57306-6) RDW-CV (test code = 15.4 % 12.1-15.4 788-0) PLT (test code = See_Comment [Automated 777-3) message] The sy stem which generated this result transmitted reference range : 150 - 328 10*3/ ?L. The reference r meredith was not used to interpret this result as normal/abnormal . MPV (test code = 11.2 fL 9.8-13 45264-3) NRBC/100 WBC (test See_Comment [Automat ed code = 0963162923) message] The system which generated this result transmitted reference range : 0.0 - 10.0 /100 WBCs. The refer ence range was not u sed to interpret th is result as normal/abnormal . NRBC x10^3 (test code <0.01 See_Comment [Auto mated = 3550329809) message] The s ystem which generated this result transmitted reference range : 10*3/?L. The reference range was not used to interpret this result as normal/abnormal . GRAN MAT (NEUT) % 79.9 % (test code = 770-8) IMM GRAN % (test code 1.30 % = 0555837962) LYMPH % (test code = 7.4 % 736-9) MONO % (test code = 11.0 % 5905-5) EOS % (test code = 0.2 % 713-8) BASO % (test code = 0.2 % 706-2) GRAN MAT x10^3(ANC) 9.56 10*3/uL 1.99-6.95 H (test code = 3485241111) IMM GRAN x10^3 (test 0.15 10*3/uL 0-0.06 H code = 0871718421) LYMPH x10^3 (test code 0.89 10*3/uL 1.09-3.23 L = 731-0) MONO x10^3 (test code 1.32 10*3/uL 0.36-1.02 H = 742-7) EOS x10^3 (test code = <0.03 0.06-0.53 L 711-2) BASO x10^3 (test code <0.03 0.01-0.09 = 704-7) Lab Interpretation Abnormal (test code = 94361-0) [facility] METABOLIC PANEL (NA, K, CL, CO2, GLUCOSE, BUN, CREATININE, CA)2020-04-12 10:43:00 Test Item Value Reference Range Interpretation Comments NA (test code = 133 mmol/L 135-145 L 8415782159) K (test code = 4.3 mmol/L 3.5-5 3209568732) CL (test code = 104 mmol/L 98-108 8269324146) CO2 TOTAL (test code = 22 mmol/L 23-31 L 7707638301) AGAP (test code = 2-16 7545685133) BUN (test code = 20 mg/dL 7-23 5602186936) GLUCOSE (test code = 108 mg/dL 70-110 6941295490) CREATININE (test code = 0.77 mg/dL 0.6-1.25 2938432278) CALCIUM (test code = 8.1 mg/dL 8.6-10.6 L 4034461164) eGFR Calculation mL/min/1.73m2 (Non-) (test code = 4144679838) eGFR Calculation mL/min/1.73m2 () (test code = 4004782530) GILBERTO (test code = GILBERTO) Association of [...] tests). Lab Interpretation Abnormal (test code = 82945-7) [facility] 10:43:00 Test Item Value Reference Range Interpretation Comments MAGNESIUM (test code = 7684529311) 2.0 mg/dL 1.7-2.4 Lab Interpretation (test code = Normal 47935-2) [facility] 10:43:00 Test Item Value Reference Range Interpretation Comments PHOSPHORUS (test code = 8133583752) 4.3 mg/dL 2.5-5 Lab Interpretation (test code = Normal 79386-7) [facility]BL[facility] [id number] 04:01:00 Test Item Value Reference Range Interpretation Comments Blood Culture-Aerobic No organisms No growth Previo us (test code = 89464-3) isolated prelim inary verified result was Culture [...] Culture-Anaerobic isolated preliminar y (test code = 06140-2) verifi ed result was Culture In Progress [...] CDT Lab Interpretation Normal (test code = 14283-7) [facility] [id number] 04:01:00 Test Item Value Reference Range Interpretation Comments Blood Culture-Aerobic No organisms No growth Previo us (test code = 83404-2) isolated prelim inary verified result was Culture [...] Culture-Anaerobic isolated preliminar y (test code = 26963-1) verifi ed result was Culture In Progress [...] CDT Lab Interpretation Normal (test code = 58130-9) [facility] (NA, K, CL, CO2, GLUCOSE, BUN, CREATININE, CA)2020-04-11 10:13:00 Test Item Value Reference Range Interpretation Comments NA (test code = 138 mmol/L 135-145 3831019048) K (test code = 3.9 mmol/L 3.5-5 9625981160) CL (test code = 106 mmol/L 98-108 3061078391) CO2 TOTAL (test code = 27 mmol/L 23-31 4164043239) AGAP (test code = 2-16 1580202649) BUN (test code = 24 mg/dL 7-23 H 9462959978) GLUCOSE (test code = 97 mg/dL 70-110 1202855012) CREATININE (test code = 0.63 mg/dL 0.6-1.25 7463168081) CALCIUM (test code = 8.1 mg/dL 8.6-10.6 L 6868467349) eGFR Calculation mL/min/1.73m2 (Non-) (test code = 7200097417) eGFR Calculation mL/min/1.73m2 () (test code = 7702603274) GILBERTO (test code = GILBERTO) Association of [...] tests). Lab Interpretation Abnormal (test code = 76881-9) [facility] Test Item Value Reference Range Interpretation Comments MAGNESIUM (test code = 8301206726) 1.8 mg/dL 1.7-2.4 Lab Interpretation (test code = Normal 79275-9) [facility] 10:13:00 Test Item Value Reference Range Interpretation Comments PHOSPHORUS (test code = 8307288841) 3.6 mg/dL 2.5-5 Lab Interpretation (test code = Normal 06558-5) [facility] WITH [id number] 10:06:00 Test Item Value Reference Range Interpretation [...] RDW-SD (test code = 48.9 fL 38.5-51.6 90687-7) RDW-CV (test code = 15.3 % 12.1-15.4 788-0) PLT (test code = See_Comment [Automated 777-3) message] The sy stem which generated this result transmitted reference range : 150 - 328 10*3/ ?L. The reference r meredith was not used to interpret this result as normal/abnormal . MPV (test code = 11.7 fL 9.8-13 90474-4) NRBC/100 WBC (test See_Comment [Automat ed code = 6401550693) message] The system which generated this result transmitted reference range : 0.0 - 10.0 /100 WBCs. The refer ence range was not u sed to interpret th is result as normal/abnormal . NRBC x10^3 (test code <0.01 See_Comment [Auto mated = 0866088390) message] The s ystem which generated this result transmitted reference range : 10*3/?L. The reference range was not used to interpret this result as normal/abnormal . GRAN MAT (NEUT) % 75.6 % (test code = 770-8) IMM GRAN % (test code 1.10 % = 4388083962) LYMPH % (test code = 10.5 % 736-9) MONO % (test code = 11.0 % 5905-5) EOS % (test code = 1.5 % 713-8) BASO % (test code = 0.3 % 706-2) GRAN MAT x10^3(ANC) 5.56 10*3/uL 1.99-6.95 (test code = 9316771385) IMM GRAN x10^3 (test 0.08 10*3/uL 0-0.06 H code = 6052007547) LYMPH x10^3 (test code 0.77 10*3/uL 1.09-3.23 L = 731-0) MONO x10^3 (test code 0.81 10*3/uL 0.36-1.02 = 742-7) EOS x10^3 (test code = 0.11 10*3/uL 0.06-0.53 711-2) BASO x10^3 (test code <0.03 0.01-0.09 = 704-7) TOXIC CHANGES (test Present A code = 803-7) Lab Interpretation Abnormal (test code = 40764-1) [id number] 22:00:00 Test Item Value Reference Range Interpretation Comments Case Report (test code Surgical Pathology ? ? = [id number]) ?Case: [id number] ? Authorizing Provider: ?Person, MD Juventino ? Collected: ? 04/06/2020 1012 ?Ordering Location: ? ? [facility] OR ? Received: ?04/06/2020 1146 ? Department ? Pathologist: ? He, Shaneka, MD ? Specimen: ? ?SOFT TISSUE, OTHER, ileo rectal anastamosis ? Final Diagnosis (test h6jcqGGmADOwt2juMJWdwC code = [id number]) FuZzEwMzNcZnRuYmpcdWMx UGylqmOmBRyjt6NkT2QjDt AwMFxhbnNpXGRlZmxhbmcx YDIrUYW1hzDeYLFwBJptOF TkFUijMi9lhKRcrYdfSpPk QNEyu3rwfpAKcdtwfTv6p3 mzIAXnArD3eDWqDCwlL4yh pnXzsVJpSBKkJXo6tU51CJ JutC8yfCVtZHzapxLcTdW1 ETteNIXgLxY1LFDicDTwLD JlB5enZBIrPIibDDBlSOkn fCXvWST6cAoie9U6yIThgJ ClcXnhAiXjVxDcWJQIx6Po TYg0qFfpZ7OuZZPrYaQ6xL QgUGFyYWdyYXBoIEZvbnQ7 qX61LVmsrkE4xEZca3Cvl7 6tz382dJ3drYMmIFU4CAGp PYConZHaNIHcZUO5JPFjiC XlK4lpNGznBO2gnsijBHZ7 MFxtYXJndDcyMFxtYXJnYj GadFWrPPHbuJyjHPgya775 QCW9JcDzVN3iY5Vbp7L0sN 9maXRcZGVmdGFiNzIwXGZv an7qvMBkKOnlm9JiQTC9rh A8bXKngQRcELFtOT74Anda r3CuFrhwGBE9OQWecjUqs3 Kum0tpFgKkyxPbK4apD9Db ZHJoZWFkXHBnYnJkcmZvb3 Yaz1MhpDNybKy1z7lgDPKh LYNqfIicl3xzKJF3NGLqK4 O2iGFnw7meMIoeTMQojOI7 spNuUPLszVIdB1StcR8rQV fwQA6hkiv3d2rkVaVgMC4u zkyjv0odGXftMWNrCDV1Lm NrDKWqm0SrnpnrTiLub6Ps oNPzFCreP52me081DQTmmy KoS7vikSBnxulhzRJaamhs BMoepgM0RJArDOSwSXdpMD YxXGZzMjBcbGFuZzEwMzNc aGljaFxmMVxkYmNoXGYxXG geY1xmCxBbXnYoVSrhHMWu BQ5iK81RJ47cBLlEPK3rJg STFKUAHIEMZPHND43PT0yF QQVMDRGoYWSEI12DWcDDRY ZAVJJPQ8XFQ271LUMrqxWc QAZtON0wCaIOSASTDPZTLA ORQOAURYZNRJTBDOZzN6iF TTXSNlGOE70EZrDIDQzGEm bNXB5LAPoNPyahHIoKBFPB XAmONxjsT8EAW4DPYTaTWY FORFxwYXIgICAgICAgICBQ LDRSIQ5VCCWZX1vjOIYcMP NgGCCmKADIZ0BGCLvMAcKD XGPKVQ7CAVRWXCRHEAQYVY VccGFyXHBhclxwbGFpblxm MVxmczIyXGxhbmcxMDMzXG xzV4ayFaTcLULdfAflSDah t5PxAHDrIXLhFwmzehGpDK ZqK9kxoYrvUHmpNSF3QT7n MP8FN6wJNXZ7IkC6WcIeBt PdWFE9XpHyCB6dbDkblP5z EhXdZeDeEBhkIV5nEAEhO7 btzEZcVFYzLFGxJ3lsZgSy qZ4ymFapUNrslxAsLBAslW PzORJfuw59CLB0AaRsc1F0 PFSrEiJvWWPkIK1xdScjUB EsNI2mIJYvY7mwiD7mwal8 YiNzTMByFgI5CTClenU7Np s3GDOoGDpvj9cwg5OsC6Iw qZTtlYi2s5viLXGgQnZ8rX FzSGtlH6lrujJvkVFeRUXa LDc4aJyvJaJbCRKfb7unne BcZmNoYXJzZXQwIENhbGli max3zN59UXDpwB2ynVDpPG yasqWaEhZ2DSonGUPrCkS5 BKMaiRIkSLMcN0vvNITiKB iwZQHgNHtigCEaTPB1qQne r6R3lLGvrJLnpTahQjJxMq EiQEZZy4LgNWo7aDikK1Sc STWuThN3bESqVLNxLHlpDK SlRGNiiqP7lX97IGupdlV3 aRSub6Cws21ee017bT3hbJ UwPGH8SRQeZWEwyANwCLXk DTL1KAIvqUVzG3bePNLoNF 5wenrwYTofMEdiPPQqyTX2 YJMqrCCdK9GfIIAdUYjqCP Tbqmu7NyNhKx5sqIPbsFty CFfgs9bsd7xgaFBbGsp3LS BnLsPiHzetQBdgi4Qhs9ss AEDugo8yDQO1yXWohUllp6 E2cDIzOLVoxXEtojPpAUMi JkM0MBerYL8mqk40QVWxCP T9qz6lpJBrqHroouJpbDRw KOhxF8TzVUKdo316DCRoM0 UoFVNii3H0qhVpYtUzDAIm wKX9drS9UELgDWa0kJTzzr H6ggDuqIKwV7lsrM6lAXPd UK2irmwko4twFAnjJUlnAZ CygEJ5faK9DTIwkQPlT2Ik eH9qPZWmQZmpWSUlizc9Rn SqKv4ywQGpbGlwMVibHoyf YWdlXHBnbmNvbnRccGduZG VjXHBsYWluXHBsYWluXGYw RTLgDkAayKoqwOeygB3qSq HwGvTgEGbkWR4aQRRpJ6hj nLHhUNSxHXTnY9ozPoTxxL 9jaFxmMVxjZjJcZnMyMFxw YXIgSSBoYXZlIHBlcnNvbm DnbQwzyfA9wTV4XRLeFGsy FFEgXHSpaVDzic7ocYgeIS GeLU0oRJRjwgTdEPpuaFei VPktDIT5VNTpqGDhdMPkwH FkZSBieSByZXNpZGVudHMs ATTmnPipk1Vut8RdoQG0gG 3mp9pzq5YhNUYipQD0PW30 byU6kW7zOYQnDZ7tAKEzLT 5giAPdpKXiVHLrd58vdRqa cyByZXBvcnQuXHBsYWluXG YyXGZzMjhcbGFuZzEwMzNc aGljaFxmMlxkYmNoXGYyXG gfN9siAvChBpDqUSuwAUX0 fQ== Clinical Information Abdominal distention (test code = [R14.0] 3462040823) Gross Description (test h9clqEEyNFDgcUHtWvVmHP code = 2495235158) XvTLTch6neUMGyhQVeBvJd MzNcZnRuYmpcdWMxXGRlZm Zkh6zvk648vADgy0frSDKu LjL5gHKeYWXhxINyG796TG WoHBjsn8kkd1DyYGYqeFFx f5E4JFZGauyriJc0nMchG9 2pa1O1QptoE8szIYQrGWxx YXGqOUtvcRJmANR7ZMQdDY E1BNtxupLvlqT6KXrvvJMs AlS2FWc0a1kafWxiLEHsAD B8s5bwZUjzbtZkDL4tat0k tVf9j6lignNoKMGbURLxzS JLCSJyV2FchRqpQp5hwMb3 yOhdPtdgGIK1Scj1BY0dtw 82tbe0rLaxGRRbwpoqNjY3 XGhjLAUxchwtNRu4BXspDV YkrTFwJEEyhSDmZ4EmLVom GW0mbew8BcEfNN1tmyevLW nlQWYzSCB3KaJsQRWpc5Wo wjrdKgWvlf9lvc73WTI6c0 BfxSpyBGE6NDO9BjXrHg9y vWTdQOUgRL0gHaIpvAXyIS Epap69zApoFWmkcwTecH2t XfIiAKHinXJhFVHtVD9mkV IfUJBeeU6nfheuLVWkImAb zmugDYXdxZvkauFmLe3tiF gdJWR3PIyaX5erxW9dLfC0 XEtzP4serA7xBGa9URqpkZ K3UFLopD4qJT0krpiiw7hz SPY6JLgtZXUxdxV4tsMoAN FuvILaA1EiwI20LsLmmFHr Y6PyaS8mXHyfKEAupiz5Sy RbUf3izXCjiIX5BVetKlev YWdlXHBnbmNvbnRccGduZG VjXHBsYWluXHBsYWluXGYw KYOaVoPrgJiztYcsiC4qJo BcZnMyMFxwbGFpblxmMFxm czIwIFNwZWNpbWVuIEEgcm BxBXc0HSBkCiAls0woyNJk IRvmCCG9aFNkVJNvHUXhHA XhAA75O4PkhlRiGVxcHUmf xsZfCcYjLPUxp89jgMI5aS NpoOUyUBabAIKuHBYsS7Tj dKBiohHuuA9kn5LbfrAcCQ 7yDABegpBpu5MrSV0dMSYf l9WbvJAiaBEpAMSii9XcrC qebuWwSsBxnY1nBDIzzgDq v6qmuUSlAP67HULaBBqpDC uucda3fTInusAtyqQyW6js YdCxgz2lNAAiNDuqwLRopt srSQfqieUyTRZ9MkSdFRqb YPEfqPzevY1hOgHkCtVkAW H2NzDwD54yUMarbAH2HKTa CREiixPqf6IsxkIah9d9aZ PihBFcKNIcK6SizNUuxyLl fI3rz0Lqak1rVGQMyMWkc4 Fub8YzvEHrLHPjc3LecEwz hgXtGC2zOCxoLT3pZNAaBD gubOJwyv37JXRwGCNpqNiy KSFlIBP8g09gk2gbSOObjR SxCL6yKVJ3bXPgnxDcpPT7 mIZxNuMxLWufkTE7SRPeIG ugSCARlYOpkEJaWw1eYMOa s88knMFdqM5bFWAgSCRiIu GhW67xSbYzjFI1jERaoHsf PYaycFIrN8xpSCVsTVSmNl IfZxUkuKF6yNVeslZkhSIo BF8qrurili4vECakXTH3uv oxW9ElNW3wykupgqSiRJEm XE1jZV8nSIPydoTvsNciEQ HgGERadHJjWJaiMEksW1lj RNBnvfR3HWUubF1rWWZiuB HnDs1jWXEhk78wr7e5BWQ8 hSWuqN5fyPcbWYEaIUT0v5 3un0umZXG5LAFwGOSzsC9n HgOrUsQqZVldGMZaDD6pUQ NyUGGlyDQhw9RczGOkoN9u CHTgefRmhnKaQSUzaJD5p8 AmUXNbhHTpv3TrOQI6jOIw IITykkNmEPHtUHIaQV7niO NwOUUnwLWdw7DxmZZ2xPMx STFeZ2Rku06nHKHwHFIomR QsnSG3WLDwUGNgTAWanXwf nO1dEjYpTeKdELf8CAOkPM SaPdg5RSEyWKpxWCYwXHJa MjAgQTQuXHBhclxwYXIgU2 FooWwzarRgh3NzBteyYMOc COJ0ZJANYDL7IZwfb7PrM7 qzRVueuVXkX2ywSVVfXPTh TRZfqxLqhHx9AObkZHJdQU B5JYTIcBZhfBMplXXciDIr lURmDLXwgU9pBUFhmKUfc2 WyuDN3fYDsTAKrllTAPdrp MSIubgZdqsB0vL9wPPYpsQ IhuZJjWRS9SqJbWB7omrDb lBHnLYLpDIF9vL9zUN0oWD MmJVtoEASbc5ZuNRYkZDFd TJRqeyDqsWc2IFmhGWBeoO EwVOIkgaPoeEqfaI0sWtHt ZnMyMFxwbGFpblxmMVxmcz UfLJYtwObxMSDksYXpBV6H GBfHZMDka5foV5unjQKAs9 Ind1YwhrKaZEBwSJhaOLYe XGZzMjBccGFyXHFsXHBsYW cfJAXaCTXnVhOzzIzglF5t ZjBcZnMyMFxwYXJccGFyfQ == Embedded Images (test code = 6328162742) [facility] WITH [id number] 11:29:00 Test Item Value Reference Range Interpretation [...] RDW-SD (test code = 48.8 fL 38.5-51.6 73493-7) RDW-CV (test code = 15.2 % 12.1-15.4 788-0) PLT (test code = See_Comment L [Automated 777-3) message] The sy stem which generated this result transmitted reference range : 150 - 328 10*3/ ?L. The reference r meredith was not used to interpret this result as normal/abnormal . MPV (test code = 11.6 fL 9.8-13 84037-8) NRBC/100 WBC (test See_Comment [Automat ed code = 6939493286) message] The system which generated this result transmitted reference range : 0.0 - 10.0 /100 WBCs. The refer ence range was not u sed to interpret th is result as normal/abnormal . NRBC x10^3 (test code <0.01 See_Comment [Auto mated = 6615451449) message] The s ystem which generated this result transmitted reference range : 10*3/?L. The reference range was not used to interpret this result as normal/abnormal . GRAN MAT (NEUT) % 79.1 % (test code = 770-8) IMM GRAN % (test code 0.50 % = 1917210389) LYMPH % (test code = 11.0 % 736-9) MONO % (test code = 7.8 % 5905-5) EOS % (test code = 1.4 % 713-8) BASO % (test code = 0.2 % 706-2) GRAN MAT x10^3(ANC) 4.67 10*3/uL 1.99-6.95 (test code = 3581880492) IMM GRAN x10^3 (test 0.03 10*3/uL 0-0.06 code = 4803248262) LYMPH x10^3 (test code 0.65 10*3/uL 1.09-3.23 L = 731-0) MONO x10^3 (test code 0.46 10*3/uL 0.36-1.02 = 742-7) EOS x10^3 (test code = 0.08 10*3/uL 0.06-0.53 711-2) BASO x10^3 (test code <0.03 0.01-0.09 = 704-7) Lab Interpretation Abnormal (test code = 67192-9) [facility] Test Item Value Reference Range Interpretation Comments MAGNESIUM (test code = 4820933672) 1.7 mg/dL 1.7-2.4 Lab Interpretation (test code = Normal 91911-2) [facility] 11:19[facility]00 Test Item Value Reference Range Interpretation Comments PHOSPHORUS (test code = 0192549369) 3.0 mg/dL 2.5-5 Lab Interpretation (test code = Normal 99397-3) [facility] [id number] 13:59:01 Interval extubation and removal of enteric [...] reviewed this study and agree with theabove report.[facility] (ALB,T.PRO,BILI T,BU/BC,ALT,AST,ALK PHOS) 2020-04-09 11:52:00 Test Item Value Reference Range Interpretation Comments TOTAL BILI (test code = 1088805332) 1.2 mg/dL 0.1-1.1 H BILI UNCON (test code = 6518494471) 0.8 mg/dL 0.1-1.1 BILI CONJ (test code = 2383470745) 0.0 mg/dL 0-0.3 T PROTEIN (test code = 1448927562) 4.2 g/dL 6.3-8.2 L ALBUMIN (test code = 8003210735) 2.2 g/dL 3.5-5 L ALK PHOS (test code = 0750798903) 36 U/L 34-122 ALTv (test code = 1742-6) 13 U/L 5-50 AST(SGOT) (test code = 1743144295) 23 U/L 13-40 Lab Interpretation (test code = Abnormal 01587-9) [facility] WITH [id number] 10:01:00 Test Item Value Reference Range Interpretation [...] RDW-SD (test code = 47.6 fL 38.5-51.6 57513-3) RDW-CV (test code = 14.8 % 12.1-15.4 788-0) PLT (test code = See_Comment L [Automated 777-3) message] The sy stem which generated this result transmitted reference range : 150 - 328 10*3/ ?L. The reference r meredith was not used to interpret this result as normal/abnormal . MPV (test code = 11.6 fL 9.8-13 33993-9) NRBC/100 WBC (test See_Comment [Automat ed code = 8596291842) message] The system which generated this result transmitted reference range : 0.0 - 10.0 /100 WBCs. The refer ence range was not u sed to interpret th is result as normal/abnormal . NRBC x10^3 (test code <0.01 See_Comment [Auto mated = 5173277790) message] The s ystem which generated this result transmitted reference range : 10*3/?L. The reference range was not used to interpret this result as normal/abnormal . GRAN MAT (NEUT) % 87.5 % (test code = 770-8) IMM GRAN % (test code 0.90 % = 9660604323) LYMPH % (test code = 7.5 % 736-9) MONO % (test code = 3.4 % 5905-5) EOS % (test code = 0.5 % 713-8) BASO % (test code = 0.2 % 706-2) GRAN MAT x10^3(ANC) 5.12 10*3/uL 1.99-6.95 (test code = 8286156407) IMM GRAN x10^3 (test 0.05 10*3/uL 0-0.06 code = 7383188906) LYMPH x10^3 (test code 0.44 10*3/uL 1.09-3.23 L = 731-0) MONO x10^3 (test code 0.20 10*3/uL 0.36-1.02 L = 742-7) EOS x10^3 (test code = 0.03 10*3/uL 0.06-0.53 L 711-2) BASO x10^3 (test code <0.03 0.01-0.09 = 704-7) DOHLE BODIES (test Present A code = 7792-5) TOXIC CHANGES (test Present A code = 803-7) Lab Interpretation Abnormal (test code = 51879-5) [facility] METABOLIC PANEL (NA, K, CL, CO2, GLUCOSE, BUN, CREATININE, CA)2020-04-09 09:37:00 Test Item Value Reference Range Interpretation Comments NA (test code = 135 mmol/L 135-145 7870557342) K (test code = 3.6 mmol/L 3.5-5 6167421316) CL (test code = 105 mmol/L 98-108 2761722731) CO2 TOTAL (test code = 31 mmol/L 23-31 3865971580) AGAP (test code = <1 2-16 L 2731067833) BUN (test code = 28 mg/dL 7-23 H 5419732031) GLUCOSE (test code = 95 mg/dL 70-110 5629726529) CREATININE (test code = 0.78 mg/dL 0.6-1.25 7060299893) CALCIUM (test code = 8.1 mg/dL 8.6-10.6 L 3670333819) eGFR Calculation mL/min/1.73m2 (Non-) (test code = 5043634367) eGFR Calculation mL/min/1.73m2 () (test code = 6839194355) GILBERTO (test code = GILBERTO) Association of [...] tests). Lab Interpretation Abnormal (test code = 40971-5) [facility] Test Item Value Reference Range Interpretation Comments MAGNESIUM (test code = 2471718798) 1.8 mg/dL 1.7-2.4 Lab Interpretation (test code = Normal 69727-5) [facility] 09:36:00 Test Item Value Reference Range Interpretation Comments PHOSPHORUS (test code = 4293457408) 1.8 mg/dL 2.5-5 L Lab Interpretation (test code = Abnormal 49840-4) [facility] LACTIC [id number] 21:18:00 Test Item Value Reference Range Interpretation Comments PH (test code = 2) 7.35-7.45 PCO2 (test code = See_Comment [Automate d 2874094769) message] The sy stem which generated this result transmitted reference range : 35 - 45 mmHg. The reference range was not used to interpret this result as normal/abnormal . PO2 (test code = See_Comment L [Automated 4763274244) message] The sy stem which generated this result transmitted reference range : 80 - 100 mmHg. The reference range was not used to interpret this result as normal/abnormal . HCO3 (test code = See_Comment [Automate d 8969512276) message] The sy stem which generated this result transmitted reference range : 22 - 26 mEq/L. The reference range was not used to interpret this result as normal/abnormal . BE (test code = See_Comment [Automated 0999199360) message] The sy stem which generated this result transmitted reference range : -3.0 - 3.0 mEq/ L. The reference r meredith was not used to interpret this result as normal/abnormal . THB (test code = 9.2 g/dL 13.5-18 L 5619495435) %O2HB (test code = 94.3 % 94-99 3040028701) %COHB ART (test code = 0.7 % 0-1.5 8496935322) %METHB ART (test code = 0.3 % 0.4-1.5 L 2292346725) VOL%O2 ART (test code = 12.3 % 15-23 L 1703367893) NA (test code = 135 mmol/L 135-145 8673426595) K+ (test code = 3.7 mmol/L 3.5-5 3541352246) AC CA IONZ (test code = 4.90 mg/dL 4.5-5.3 6890635148) GLUCOSE (test code = 94 mg/dL 70-110 4333904768) LACTIC ACID (test code 1.35 mmol/L = 2690319767) Lab Interpretation Abnormal (test code = 14239-4) [facility] GLUCOSE (AUTOMATED)2020-04-08 16:33:00 Test Item Value Reference Range Interpretation Comments POCT GLU (test code = 5342988401) 109 mg/dL 70-110 Lab Interpretation (test code = Normal 85953-2) [facility] GLUCOSE (AUTOMATED)2020-04-08 16:33:00 Test Item Value Reference Range Interpretation Comments POCT GLU (test code = 8917293531) 120 mg/dL 70-110 H Lab Interpretation (test code = Abnormal 56060-8) [facility] GLUCOSE (AUTOMATED)2020-04-08 16:33:00 Test Item Value Reference Range Interpretation Comments POCT GLU (test code = 4407226050) 93 mg/dL 70-110 Lab Interpretation (test code = Normal 42756-6) [facility] GLUCOSE (AUTOMATED)2020-04-08 12:46:00 Test Item Value Reference Range Interpretation Comments POCT GLU (test code = 5615724727) 109 mg/dL 70-110 Lab Interpretation (test code = Normal 21598-0) [facility] WITH [id number] 10:21:00 Test Item Value Reference Range Interpretation [...] RDW-SD (test code = 48.4 fL 38.5-51.6 88171-1) RDW-CV (test code = 15.0 % 12.1-15.4 788-0) PLT (test code = See_Comment L [Automated 777-3) message] The system which generated this result transmitted reference range : 150 - 328 10*3/?L. The reference range was not used to interpret this result as normal/abnormal . MPV (test code = 11.4 fL 9.8-13 38592-5) NRBC/100 WBC (test See_Comment [Automat ed code = 1842357362) message] The system which generated this result transmitted reference range : 0.0 - 10.0 /100 WBCs. The reference range was not used to interpret this result as normal/abnormal . NRBC x10^3 (test code <0.01 See_Comment [Auto mated = 4035076813) message] The system which generated this result transmitted reference range : 10*3/?L. The reference range was not used to interpret this result as normal/abnormal . GRAN MAT (NEUT) % 84.9 % (test code = 770-8) IMM GRAN % (test code 0.80 % = 9630845141) LYMPH % (test code = 7.9 % 736-9) MONO % (test code = 5.3 % 5905-5) EOS % (test code = 0.3 % 713-8) BASO % (test code = 0.8 % 706-2) GRAN MAT x10^3(ANC) 3.34 10*3/uL 1.99-6.95 (test code = 4975904222) IMM GRAN x10^3 (test 0.03 10*3/uL 0-0.06 code = 2122696543) LYMPH x10^3 (test 0.31 10*3/uL 1.09-3.23 L code = 731-0) MONO x10^3 (test code 0.21 10*3/uL 0.36-1.02 L = 742-7) EOS x10^3 (test code <0.03 0.06-0.53 L = 711-2) BASO x10^3 (test code 0.03 10*3/uL 0.01-0.09 = 704-7) GOLDEN CELLS (test code 2+ See_Comment A [Auto mated = 9590-9) message] The system which generated this result transmitted reference range : (none). The reference range was not used to interpret this result as normal/abnormal . BANDS (test code = MARKED INCREASED A 3776215815) DOHLE BODIES (test Present A code = 7792-5) TOXIC CHANGES (test Present A code = 803-7) Lab Interpretation Abnormal (test code = 87804-1) [facility] METABOLIC PANEL (NA, K, CL, CO2, GLUCOSE, BUN, CREATININE, CA)2020-04-08 10:02:00 Test Item Value Reference Range Interpretation Comments NA (test code = 138 mmol/L 135-145 1915129962) K (test code = 4.1 mmol/L 3.5-5 0248106798) CL (test code = 109 mmol/L 98-108 H 6683671652) CO2 TOTAL (test code = 25 mmol/L 23-31 9151985500) AGAP (test code = 2-16 0093118172) BUN (test code = 26 mg/dL 7-23 H 1758518562) GLUCOSE (test code = 103 mg/dL 70-110 6987591303) CREATININE (test code = 0.90 mg/dL 0.6-1.25 7274742841) CALCIUM (test code = 8.4 mg/dL 8.6-10.6 L 7250820197) eGFR Calculation mL/min/1.73m2 (Non-) (test code = 5076962239) eGFR Calculation mL/min/1.73m2 () (test code = 5788309970) GILBERTO (test code = GILBEROT) Association of Glomerular Filtration Rate (GFR) and [...] tests). Lab Interpretation Abnormal (test code = 86309-9) [facility]:00 Test Item Value Reference Range Interpretation Comments MAGNESIUM (test code = 4440489087) 2.6 mg/dL 1.7-2.4 H Lab Interpretation (test code = Abnormal 22152-5) [facility] L[facility]IC [id number] 09:43:00 Test Item Value Reference Range Interpretation Comments PH (test code = 7.32-7.42 6247791624) PCO2 PANKAJ (test code = See_Comment [Auto mated 0939916726) message] The sy stem which generated this result transmitted reference range : 41 - 51 mmHg. The reference range was not used to interpret this result as normal/abnormal . PO2 PANKAJ (test code = See_Comment [Autom ated 4212713631) message] The sy stem which generated this result transmitted reference range : 25 - 40 mmHg. The reference range was not used to interpret this result as normal/abnormal . HCO3 PANKAJ (test code = See_Comment [Auto mated 3313280649) message] The sy stem which generated this result transmitted reference range : 24 - 28 mEq/L. The reference range was not used to interpret this result as normal/abnormal . AC VBE(BEAKER) (test mEq/L code = 1620991422) THB PANKAJ (test code = 11.4 g/dL 13.5-18 L 7220855936) %O2HB PANKAJ (test code = 64.9 % 52-63 H 6059293014) %COHB PANKAJ (test code = 1.0 % 0-1.5 7321273535) %METHB PANKAJ (test code = 0.3 % 0.4-1.5 L 3786593817) VOL%O2 PANKAJ (test code = 10.4 % 6-12 6360294316) NA (test code = 138 mmol/L 135-145 4217866892) K+ (test code = 4.1 mmol/L 3.5-5 9794328517) AC CA IONZ (test code = 4.90 mg/dL 4.5-5.3 9689196028) GLUCOSE (test code = 98 mg/dL 70-110 3617536701) LACTIC ACID (test code 1.90 mmol/L = 9060619521) Lab Interpretation Abnormal (test code = 94612-5) [facility]00 Test Item Value Reference Range Interpretation Comments POCT GLU (test code = 5682740493) 106 mg/dL 70-110 Lab Interpretation (test code = Normal 64104-5) [facility] [id number] 22:55:21Impression: Stable findings with no new changes.Exam: [...] unchanged.IMPRESSIONIm pression: Stable findings with no new changes.[facility] MRSA / MSSA Screen by Estefanía [id number] 19:28:00 Test Item Value Reference Range Interpretation Comments MSSA Screen by PCREstefanía (test code Negative Negative = 68124-3) MRSA/MSSA Positive? (test code = No No [id number]) Lab Interpretation (test code = Normal 47268-1) [facility] 17:01:00 Test Item Value Reference Range Interpretation Comments POCT GLU (test code = 9362646781) 95 mg/dL 70-110 Lab Interpretation (test code = Normal 69864-8) [facility] LACTIC [id number] 14:15:00 Test Item Value Reference Range Interpretation Comments PH (test code = 2) 7.35-7.45 L PCO2 (test code = See_Comment [Automate d 0015799760) message] The sy stem which generated this result transmitted reference range : 35 - 45 mmHg. The reference range was not used to interpret this result as normal/abnormal . PO2 (test code = See_Comment H [Automated 2296190501) message] The sy stem which generated this result transmitted reference range : 80 - 100 mmHg. The reference range was not used to interpret this result as normal/abnormal . HCO3 (test code = See_Comment L [Automate d 2035304404) message] The sy stem which generated this result transmitted reference range : 22 - 26 mEq/L. The reference range was not used to interpret this result as normal/abnormal . BE (test code = See_Comment L [Automated 6640971988) message] The sy stem which generated this result transmitted reference range : -3.0 - 3.0 mEq/ L. The reference r meredith was not used to interpret this result as normal/abnormal . THB (test code = 9.6 g/dL 13.5-18 L 2253840103) %O2HB (test code = 98.6 % 94-99 1128933191) %COHB ART (test code = 0.3 % 0-1.5 2788880627) %METHB ART (test code = 0.0 % 0.4-1.5 L 6390242571) VOL%O2 ART (test code = NA 3923737689) NA (test code = 131 mmol/L 135-145 L 6936616455) K+ (test code = 4.3 mmol/L 3.5-5 9961390232) AC CA IONZ (test code = 4.60 mg/dL 4.5-5.3 2282960210) GLUCOSE (test code = 147 mg/dL 70-110 H 4513378269) LACTIC ACID (test code 3.12 mmol/L 0.5-2.2 H = 4123927468) Lab Interpretation Abnormal (test code = 16627-0) [facility] Whole [id number] 14:00:00 Test Item Value Reference Range Interpretation Comments LACTIC ACID (test code = 3.12 mmol/L 1284047155) [facility] GLUCOSE (AUTOMATED)2020-04-07 12:53:00 Test Item Value Reference Range Interpretation Comments POCT GLU (test code = 8639107711) 140 mg/dL 70-110 H Lab Interpretation (test code = Abnormal 34521-5) [facility] LACTIC [id number] 12:01:00 Test Item Value Reference Range Interpretation Comments PH (test code = 2) 7.35-7.45 L PCO2 (test code = See_Comment L [Automate d 0735267038) message] The sy stem which generated this result transmitted reference range : 35 - 45 mmHg. The reference range was not used to interpret this result as normal/abnormal . PO2 (test code = See_Comment H [Automated 2096154099) message] The sy stem which generated this result transmitted reference range : 80 - 100 mmHg. The reference range was not used to interpret this result as normal/abnormal . HCO3 (test code = See_Comment L [Automate d 0795884382) message] The sy stem which generated this result transmitted reference range : 22 - 26 mEq/L. The reference range was not used to interpret this result as normal/abnormal . BE (test code = See_Comment L [Automated 2446834723) message] The sy stem which generated this result transmitted reference range : -3.0 - 3.0 mEq/ L. The reference r meredith was not used to interpret this result as normal/abnormal . THB (test code = 10.8 g/dL 13.5-18 L 0164603671) %O2HB (test code = 98.8 % 94-99 8403209867) %COHB ART (test code = 0.3 % 0-1.5 0341097923) %METHB ART (test code = 0.0 % 0.4-1.5 L 2969827111) VOL%O2 ART (test code = 15.4 % 15-23 2797410464) NA (test code = 126 mmol/L 135-145 L 9658343903) K+ (test code = 4.3 mmol/L 3.5-5 2635903721) AC CA IONZ (test code = 4.70 mg/dL 4.5-5.3 4403237219) GLUCOSE (test code = 144 mg/dL 70-110 H 4421556535) LACTIC ACID (test code 2.79 mmol/L = 8761586462) Lab Interpretation Abnormal (test code = 93667-7) [facility] [id number] 11:44:00 Test Item Value Reference Range Interpretation Comments URINE CULTURE (test No aerobic growth (< code = 630-4) 1000 CFU/mL) [facility] WITH [id number] 09:53:00 Test Item Value Reference Range Interpretation Comments WBC (test code = See_Comment L [Automated 4090-2) message] The sy stem which [...] RDW-SD (test code = 48.8 fL 38.5-51.6 82712-5) RDW-CV (test code = 15.0 % 12.1-15.4 788-0) PLT (test code = See_Comment L [Automated 777-3) message] The sy stem which generated this result transmitted reference range : 150 - 328 10*3/ ?L. The reference r meredith was not used to interpret this result as normal/abnormal . MPV (test code = 11.8 fL 9.8-13 48506-8) IPF % (test code = 6.5 % 1.2-10.7 Platelet count 0585802289) measured by fluorescence method. NRBC/100 WBC (test See_Comment [Automat ed code = 7616735472) message] The system which generated this result transmitted reference range : 0.0 - 10.0 /100 WBCs. The refer ence range was not u sed to interpret th is result as normal/abnormal . NRBC x10^3 (test code <0.01 See_Comment [Auto mated = 5033306983) message] The s ystem which generated this result transmitted reference range : 10*3/?L. The reference range was not used to interpret this result as normal/abnormal . SEG % (test code = 20 % 33-76 L 29160-1) BAND % (test code = 45 % 0-1 H 68953-3) META % (test code = 9 % See_Comment H [Automa dain 75998-6) message] The sy stem which generated this result transmitted reference range : <=0. The refere nce range was not u sed to interpret th is result as normal/abnormal . MYELO % (test code = 1 % See_Comment H [Autom ated 97339-6) message] The sy stem which generated this result transmitted reference range : <=0. The refere nce range was not u sed to interpret th is result as normal/abnormal . LYMPH % (test code = 20 % 14-54 16698-9) MONO % (test code = 5 % 0-4 H 72920-7) ANC (test code = 1.40 10*3/uL 1.99-6.95 L 8749088600) GOLDEN CELLS (test code 2+ See_Comment A [...] 803-7) Lab Interpretation Abnormal (test code = 18006-8) [facility] METABOLIC PANEL (NA, K, CL, CO2, GLUCOSE, BUN, CREATININE, CA)2020-04-07 09:21:00 Test Item Value Reference Range Interpretation Comments NA (test code = 137 mmol/L 135-145 0989449759) K (test code = 4.6 mmol/L 3.5-5 3375761531) CL (test code = 110 mmol/L 98-108 H 7757920717) CO2 TOTAL (test code = 17 mmol/L 23-31 L 9030617699) AGAP (test code = 2-16 0479754007) BUN (test code = 24 mg/dL 7-23 H 7644207656) GLUCOSE (test code = 132 mg/dL 70-110 H 8165181404) CREATININE (test code = 1.23 mg/dL 0.6-1.25 5431296806) CALCIUM (test code = 8.0 mg/dL 8.6-10.6 L 2788908224) eGFR Calculation mL/min/1.73m2 (Non-) (test code = 8185120968) eGFR Calculation mL/min/1.73m2 () (test code = 5257395580) GILBERTO (test code = GILBERTO) Association of [...] tests). Lab Interpretation Abnormal (test code = 72499-5) [facility] Test Item Value Reference Range Interpretation Comments MAGNESIUM (test code = 7228856616) 2.9 mg/dL 1.7-2.4 H Lab Interpretation (test code = Abnormal 31573-1) [facility]2020-[facility]-07 04:37:00 Test Item Value Reference Range Interpretation Comments POCT GLU (test code = 3508822458) 111 mg/dL 70-110 H Lab Interpretation (test code = Abnormal 49326-9) [facility] [id number] 02:35:00 Test Item Value Reference Range Interpretation Comments HCV Ab (test code = 79132-0) Negative HCV Semi-Quantitative (test code = 06966-5) [facility] + LACTIC [id number] 02:15:00 Test Item Value Reference Range Interpretation Comments PH (test code = 7.32-7.42 L 2327326784) PCO2 PANKAJ (test code = See_Comment L [Auto mated 0339139539) message] The sy stem which generated this result transmitted reference range : 41 - 51 mmHg. The reference range was not used to interpret this result as normal/abnormal . PO2 PANKAJ (test code = See_Comment HH [Autom ated 3859731703) message] The sy stem which generated this result transmitted reference range : 25 - 40 mmHg. The reference range was not used to interpret this result as normal/abnormal . HCO3 PANKAJ (test code = See_Comment L [Auto mated 0499658375) message] The sy stem which generated this result transmitted reference range : 24 - 28 mEq/L. The reference range was not used to interpret this result as normal/abnormal . AC VBE(BEAKER) (test mEq/L code = 1590260124) THB PANKAJ (test code = 11.2 g/dL 13.5-18 L 0444028023) %O2HB PANKAJ (test code = 98.7 % 52-63 H 5421619225) %COHB PANKAJ (test code = 0.3 % 0-1.5 2949503772) %METHB PANKAJ (test code = 0.1 % 0.4-1.5 L 0702322388) VOL%O2 PANKAJ (test code = 15.9 % 6-12 H 7414716097) NA (test code = 136 mmol/L 135-145 2352198410) K+ (test code = 4.2 mmol/L 3.5-5 0935140821) AC CA IONZ (test code = 4.60 mg/dL 4.5-5.3 0843343759) GLUCOSE (test code = 108 mg/dL 70-110 6715380376) LACTIC ACID (test code 2.37 mmol/L = 6605266134) Lab Interpretation Abnormal (test code = 47065-2) [facility]GLU[facility]CA2+2020-04-07 01:54:00 Test Item Value Reference Range Interpretation Comments PH (test code = 2) 7.35-7.45 LL PCO2 (test code = See_Comment [Automate d message] 9285105211) The system [employer] generated this result transmit dain reference range : 35 - 45 mmHg. The reference range was not used to interpret this result as normal/abnormal . PO2 (test code = See_Comment H [Automated message] 9753150926) The system [employer] generated this result transmit dain reference range : 80 - 100 mmHg. The reference range was not used to interpret this result as normal/abnormal . HCO3 (test code = See_Comment L [Automate d message] 0117451790) The system [employer] generated this result transmit dain reference range : 22 - 26 mEq/L. The reference range was not used to interpret this result as normal/abnormal . BE (test code = See_Comment L [Automated message] 8117482286) The system [employer] generated this result transmit dain reference range : -3.0 - 3.0 mEq/ L. The reference r meredith was not used to interpret this result as normal/abnormal . THB (test code = 10.6 g/dL 13.5-18 L 2263459642) %O2HB (test code = 99.0 % 94-99 6350023785) %COHB ART (test code = 0.3 % 0-1.5 8770780729) %METHB ART (test code = 0.3 % 0.4-1.5 L 9187899931) VOL%O2 ART (test code = 15.3 % 15-23 6142191306) NA (test code = 136 mmol/L 135-145 9734172036) K+ (test code = 3.1 mmol/L 3.5-5 L 0835387086) AC CA IONZ (test code = 4.30 mg/dL 4.5-5.3 L 1076746874) GLUCOSE (test code = 113 mg/dL 70-110 H 6070522008) Lab Interpretation Abnormal (test code = 37837-3) [facility]+K+GLU+CA2+2020-04-07 01:53:00 Test Item Value Reference Range Interpretation Comments PH (test code = 2) 7.35-7.45 PCO2 (test code = See_Comment L [Automate d message] 8259911436) The system [employer] generated this result transmit dain reference range : 35 - 45 mmHg. The reference range was not used to interpret this result as normal/abnormal . PO2 (test code = See_Comment H [Automated message] 5163346029) The system [employer] generated this result transmit dain reference range : 80 - 100 mmHg. The reference range was not used to interpret this result as normal/abnormal . HCO3 (test code = See_Comment L [Automate d message] 0288562376) The system [employer] generated this result transmit dain reference range : 22 - 26 mEq/L. The reference range was not used to interpret this result as normal/abnormal . BE (test code = See_Comment L [Automated message] 6155507030) The system [employer] generated this result transmit dain reference range : -3.0 - 3.0 mEq/ L. The reference r meredith was not used to interpret this result as normal/abnormal . THB (test code = 13.1 g/dL 13.5-18 L 3127607754) %O2HB (test code = 98.9 % 94-99 3377264718) %COHB ART (test code = 0.1 % 0-1.5 9881245026) %METHB ART (test code = 0.6 % 0.4-1.5 5376182634) VOL%O2 ART (test code = 19.3 % 15-23 9106039030) NA (test code = 132 mmol/L 135-145 L 6067958343) K+ (test code = 4.2 mmol/L 3.5-5 1293067106) AC CA IONZ (test code = 4.60 mg/dL 4.5-5.3 0507265372) GLUCOSE (test code = 99 mg/dL 70-110 6854605261) Lab Interpretation Abnormal (test code = 47491-6) [facility] WITH [id number] 01:29:00 Test Item Value Reference Range Interpretation Comments HIV Negative Negative Semi-quantitative (test code = 55514-7) GILBERTO (test code = Non-reactive for HIV-1 GILBERTO) antigen and HIV-1/HIV-2 antibodies. ?No laboratory evidence of HIV infection. ?Repeat in 2-4 weeks if acute HIV infection is suspected. [facility] GLUCOSE (AUTOMATED)2020-04-07 00:40:00 Test Item Value Reference Range Interpretation Comments POCT GLU (test code = 3417908591) 100 mg/dL 70-110 Lab Interpretation (test code = Normal 63634-6) [facility] GLUCOSE (AUTOMATED)2020-04-07 00:06:00 Test Item Value Reference Range Interpretation Comments POCT GLU (test code = 5011004563) 116 mg/dL 70-110 H Lab Interpretation (test code = Abnormal 56234-3) [facility]2020-04-06 22:48:00 Test Item Value Reference Range Interpretation Comments POCT GLU (test code = 0299940053) 94 mg/dL 70-110 Lab Interpretation (test code = Normal 96649-6) [facility]XR [facility]ST 1 [id number] 21:06:45 1. Interval placement of right internal [...] agree with the abovereport.[facility] WITH [id number] 20:15:00 Test Item Value Reference Range Interpretation Comments WBC (test code = See_Comment LL [Automated 9190-2) message] The sy stem which [...] RDW-SD (test code = 49.2 fL 38.5-51.6 42963-0) RDW-CV (test code = 14.7 % 12.1-15.4 788-0) PLT (test code = See_Comment L [Automated 777-3) message] The sy stem which generated this result transmitted reference range : 150 - 328 10*3/ ?L. The reference r meredith was not used to interpret this result as normal/abnormal . MPV (test code = 12.1 fL 9.8-13 07252-5) NRBC/100 WBC (test See_Comment [Automat ed code = 9629555300) message] The system which generated this result transmitted reference range : 0.0 - 10.0 /100 WBCs. The refer ence range was not u sed to interpret th is result as normal/abnormal . NRBC x10^3 (test code <0.01 See_Comment [Auto mated = 2843174785) message] The s ystem which generated this result transmitted reference range : 10*3/?L. The reference range was not used to interpret this result as normal/abnormal . SEG % (test code = 38 % 33-76 76624-7) BAND % (test code = 28 % 0-1 H 57636-3) META % (test code = 4 % See_Comment H [Automa dain 02054-9) message] The sy stem which generated this result transmitted reference range : <=0. The refere nce range was not u sed to interpret th is result as normal/abnormal . MYELO % (test code = 6 % See_Comment H [Autom ated 17880-8) message] The sy stem which generated this result transmitted reference range : <=0. The refere nce range was not u sed to interpret th is result as normal/abnormal . LYMPH % (test code = 16 % 14-54 28084-0) MONO % (test code = 8 % 0-4 H 13782-6) ANC (test code = 0.40 10*3/uL 1.99-6.95 L 0978082036) GOLDEN CELLS (test code 3+ See_Comment A [Auto mated = 7790-9) message] The sy stem which generated this result transmitted reference range : (none). The reference range was not used to interpret this result as normal/abnormal . DOHLE BODIES (test Present A code = 7792-5) Lab Interpretation Abnormal (test code = 96895-5) [facility] 19:55:00 Test Item Value Reference Range Interpretation Comments APTT Patient (test code See_Comment H [Au tomated message] = 3173-2) The system whic h generated this result transmitted ref erence range: 26 - 36 Seconds. The reference range was not used to int erpret this result as normal/abnormal . Lab Interpretation (test Abnormal code = 19371-5) [facility] CenterPROTHROM[facility] / [id number] 19:55:00 Test Item Value Reference Range Interpretation [...] tions. Lab Interpretation (test Abnormal code = 05236-6) [facility]. METABOLIC PANEL (66848)2020-04-06 19:50:00 Test Item Value Reference Range Interpretation Comments NA (test code = 137 mmol/L 135-145 5005977112) K (test code = 3.6 mmol/L 3.5-5 7034413512) CL (test code = 109 mmol/L 98-108 H 1583890008) CO2 TOTAL (test code = 18 mmol/L 23-31 L 3748343653) AGAP (test code = 2-16 3612353015) BUN (test code = 27 mg/dL 7-23 H 9771102772) GLUCOSE (test code = 91 mg/dL 70-110 2094597182) CREATININE (test code = 1.38 mg/dL 0.6-1.25 H 9634178316) TOTAL BILI (test code = 1.0 mg/dL 0.1-1.0 4020518220) CALCIUM (test code = 8.0 mg/dL 8.6-10.6 L 9866370027) T PROTEIN (test code = 4.3 g/dL 6.3-8.2 L 7025191906) ALBUMIN (test code = 2.7 g/dL 3.5-5 L 5891148463) ALK PHOS (test code = <20 34-122 L 2501097837) ALTv (test code = 9 U/L 5-50 1742-6) AST(SGOT) (test code = 21 U/L 13-40 5428038515) eGFR Calculation mL/min/1.73m2 (Non-) (test code = 8410191805) eGFR Calculation mL/min/1.73m2 () (test code = 4204977250) GILBERTO (test code = GILBERTO) Association of [...] tests). Lab Interpretation Abnormal (test code = 92534-2) [facility] METABOLIC PANEL (NA, K, CL, CO2, GLUCOSE, BUN, CREATININE, CA)2020-04-06 19:50:00 Test Item Value Reference Range Interpretation Comments NA (test code = 137 mmol/L 135-145 6012143583) K (test code = 3.6 mmol/L 3.5-5 5298820116) CL (test code = 109 mmol/L 98-108 H 5707213197) CO2 TOTAL (test code = 18 mmol/L 23-31 L 2091228258) AGAP (test code = 2-16 2360249591) BUN (test code = 27 mg/dL 7-23 H 3372593563) GLUCOSE (test code = 91 mg/dL 70-110 2719059529) CREATININE (test code = 1.38 mg/dL 0.6-1.25 H 6511906555) CALCIUM (test code = 8.0 mg/dL 8.6-10.6 L 7274463669) eGFR Calculation mL/min/1.73m2 (Non-) (test code = 0955957293) eGFR Calculation mL/min/1.73m2 () (test code = 7165943652) GILBERTO (test code = GILBERTO) Association of [...] tests). Lab Interpretation Abnormal (test code = 06002-4) [facility]2020-08-14 19:44:00 Test Item Value Reference Range Interpretation Comments MAGNESIUM (test code = 0349500175) 1.7 mg/dL 1.7-2.4 Lab Interpretation (test code = Normal 03257-6) [facility] + LACTIC [id number] 19:25:00 Test Item Value Reference Range Interpretation Comments PH (test code = 7.32-7.42 L 3240590649) PCO2 PANKAJ (test code = See_Comment L [Auto mated 0217241199) message] The sy stem which generated this result transmitted reference range : 41 - 51 mmHg. The reference range was not used to interpret this result as normal/abnormal . PO2 PANKAJ (test code = See_Comment H [Autom ated 0448638041) message] The sy stem which generated this result transmitted reference range : 25 - 40 mmHg. The reference range was not used to interpret this result as normal/abnormal . HCO3 PANKAJ (test code = See_Comment L [Auto mated 8601312895) message] The sy stem which generated this result transmitted reference range : 24 - 28 mEq/L. The reference range was not used to interpret this result as normal/abnormal . AC VBE(BEAKER) (test mEq/L code = 4339910053) THB PANKAJ (test code = 10.1 g/dL 13.5-18 L 9067426166) %O2HB PANKAJ (test code = 84.0 % 52-63 H 2239826881) %COHB PANKAJ (test code = 0.6 % 0-1.5 1950692958) %METHB PANKAJ (test code = 0.3 % 0.4-1.5 L 8916303203) VOL%O2 PANKAJ (test code = 12.0 % 6-12 2041201788) NA (test code = 135 mmol/L 135-145 0038300612) K+ (test code = 3.5 mmol/L 3.5-5 8604282638) AC CA IONZ (test code = 4.50 mg/dL 4.5-5.3 5758225071) GLUCOSE (test code = 87 mg/dL 70-110 9192174204) LACTIC ACID (test code 3.34 mmol/L = 0062937380) Lab Interpretation Abnormal (test code = 19202-5) [facility] PANEL 20 + LACTIC [id number] 19:19:00 Test Item Value Reference Range Interpretation Comments PH (test code = 2) 7.35-7.45 L PCO2 (test code = See_Comment L [Automate d 1802478880) message] The sy stem which generated this result transmitted reference range : 35 - 45 mmHg. The reference range was not used to interpret this result as normal/abnormal . PO2 (test code = See_Comment H [Automated 4764873365) message] The sy stem which generated this result transmitted reference range : 80 - 100 mmHg. The reference range was not used to interpret this result as normal/abnormal . HCO3 (test code = See_Comment L [Automate d 2584204263) message] The sy stem which generated this result transmitted reference range : 22 - 26 mEq/L. The reference range was not used to interpret this result as normal/abnormal . BE (test code = See_Comment L [Automated 0191657015) message] The sy stem which generated this result transmitted reference range : -3.0 - 3.0 mEq/ L. The reference r meredith was not used to interpret this result as normal/abnormal . THB (test code = 10.4 g/dL 13.5-18 L 9229915484) %O2HB (test code = 98.3 % 94-99 0594583807) %COHB ART (test code = 0.3 % 0-1.5 4647174620) %METHB ART (test code = 0.3 % 0.4-1.5 L 1945267039) VOL%O2 ART (test code = 14.8 % 15-23 L 9345125058) NA (test code = 135 mmol/L 135-145 0475484886) K+ (test code = 3.5 mmol/L 3.5-5 8891075910) AC CA IONZ (test code = 4.50 mg/dL 4.5-5.3 0457109197) GLUCOSE (test code = 96 mg/dL 70-110 7229369967) LACTIC ACID (test code 2.95 mmol/L = 7936787921) Lab Interpretation Abnormal (test code = 40861-9) [facility] [id number] 16:51:00 Test Item Value Reference Range Interpretation Comments Case Report (test code Surgical Pathology ? ? = 8537761010) ?Case: [id number] ? Authorizing Provider: ?Bia Pedro MD ?Collected: ? 04/03/2020 1513 ?Ordering Location: ? ? [facility] OR ? Received: ?04/03/2020 1657 ? Department ? Pathologist: ? Nimisha Galloway MD PHD ?Specimens: ? A) - COLON, total abdominal colectomy ? B) - COLON, donuts x2 ? Final Diagnosis (test v0ivxBLjSUVyt3wqHXVnfB code = 7354446777) FuZzEwMzNcZnRuYmpcdWMx LPloavQxQOxxq6WgJ6BvLk AwMFxhbnNpXGRlZmxhbmcx OFAxKOC6exBtEBIjSQreJU YyUXqxBn9yxQAahOfjLtSi SJVpt0hmygEHrvyfwQq1e3 ceEXWxOkF4uJJyBYpsM1hl gvPjxEHsSCXqUFp5bM78BX ZshY5izZGpGNelpzYbJFke gzPyryAeKhi1EZIwY8cnCE NtGACuH9FgON4yTXUzEwm2 YAH5AMY8vIiss7K3sIQieJ PlwCxcVgRmFcBmZXWQf9Ra QWl2tKbaE6DwRGIdYdQ1yS QgUGFyYWdyYXBoIEZvbnQ7 mLwvX4RhSKLuVvJ1sVWcCX IaSCgyKBIfSc3dkEp1gZdh DiqxSHA0Obs1EB9qsi82bu r6qStkXZBshhlyAhI5BCvh XBPdhzykWPh5VZlyDZMzzD AcJUAgrPJoH8NtYPiaWE5u hxb8QaTnZF0xrbbvQZkiNX JwBGY5YjYbSEWax4Jcswci ZeOcsg6mky91KSY7b4WwuG vfXFW0STS9RqVmKn4egMIa BODgCV1zUqNvoKGxERRmzk 02qEhlMNginsQuoK0mLzRo NLFazOArPDToER2xmRKtHL BcmW7bxoibBZZaSiOtojrx BPJilFmrmbWwDp8oiPziVU K2WWuhF0plgS0xBaX1XCcn Q8pmyI6lGCg5CNzhrUB9YW FqkN8yCI3nbuwir9gnAZL2 ABluYIXzokZ5vfIiNBMrcZ AyO1CksE94LmJcqYViB2Bs vP5sJTwcWRLddqh0QqPkKt 9jnUUznXA4EEroRulhOKgo XHBnbmNvbnRccGduZGVjXH BsYWluXHBsYWluXGYwXGZz WeBmbPqjxIyxqI0mVxBtZg MyMFxwbGFpblxmMVxmczIw ZUCxxoAWTzYUG8gTRzexAP 9RYZpnLuAAFBVIOA3TXswe FONzAXSeGP2fVhSLR4DOZY WxJ44NM6DRWEaHKeNWPZTP IKLAXr6BN20FIMKREO2IWl GWZSaSKTJCR13CXPIPHHHW RuCEIZASDIKVU8nZGAxiDS MxRZPaEXTiA0GHOUGWI0WP X21kDNCdjhUoAIWoWOMWVH qSPTUZJGZBIUNDG7AFUC2H HD4NFUnPDGYpC5bNXCSQTB FeG51KI56PUuRCDtPSASnN DRDTENLBEW8TPVbHCaEIXS yIVhvUSJIBB2GVLSVnzUCx AYJnVYDnWC4JO6NNVQLMXB 9OXHBhciAgICAgLSBOTyBF LtoCOF7BXBWXLmYUIZKAK7 PGHI8CM5WRB5lZQBltPBQm EAAzLT0zEC5HNXLLZtQMJO BTRVNTSUxFIFNFUlJBVEVE MBDDZG3UZWBzuRBaLCLdXC AtIFJFQUNUSVZFIExZTVBI IZ9SACWHERGqzwYsFPMwMH MKOBBRIQAmTvDVVMIEJK3H NP7OMgbPTtTyhJNeBSFdge xwbGFpblxmMVxmczIyXGxh vzrsLVKrSTrvV8gtTwGmQS FtlBswKOuqb1NbBHLzDJVa CXoooqSqNWAki2sjGMHlVw F7vRLoOTXMVyAZCfGoGK3a JD4dWWYmZAJiXAkoAtYHVU xwbGFpblxmMVxmczIwXHBh blvrZAB7q1uqhZNjAOSmxN UnUpInAPBfGFEwi3juRPTk bGFuZzEwMzNcZnRuYmpcdW RaDUOcSaDcj2reo737yNBx m1vgRHCjUpP2yNMfIMWetL wbrhs2kWtkLsXvCGMbz7tb cyBcZmNoYXJzZXQwIEFyaW ZkY887GLPkYAxdq7wgv5Bt KMMpvBKss6F4UPJTUMccNa WoX609z6qbg9xvkwWyxAD7 OCIgQRI1YPabvmSvuhK6RH mxwPJkNhT4PEgchbZeOPje wsMifeUwNmf3CRFuM742KB Q2sVlsh0oySCM0DACxQHKk QdvlZi8idVLgU827LXBtBG DHUMKbfDd9USVfzfAcxiQx eTCYh539O873e4npSPWjea DpqBhXbpsem3xdX625KYAr cGVydzEyMjQwXHBhcGVyaD H4PHEjIX9jzqbuWJegXKtp PAAjrrP6LCLpdMXrB6EtEJ MeWA8cbehbEJD3DUbzNHEo DTZ7YaRpEGXur6Rlons4Nn Yzsi2mrs77ARD9b8AaaRpu YAK8SOR7MnPjYh3zuKNvBV KsTK5vBpTekSNqJYFicx45 jNemABcwdaZrpR4zTxVdUX AcxHOlDVBrDP6rhPGqGZCi mG2nydkoIJFqKpSvsijaDY FrdNtmatTuNa5kvBgsHRY0 XSexD9pitA0oYbB6GOrvC6 inpC2hCDa6RRlvlKD9VDJm qC8oVL0klanju4shGSxeKQ foFUBpzqT7awS5JBVnrMRn F1MuhL1zBOKoAE6cxhwcv6 ohIWL9MRquXDJmVZA5XiZk QIIta6Gqpcj9NrInn6NagF LjWRqoZ71vv210CLDiskSp Q8lglQNerywyjKUkempiIO vaiqI9DRCbTNDzWMxsUZVl XGZzMjBcbGFuZzEwMzNcaG ljaFxmMVxkYmNoXGYxXGxv M3yvHhYiG9GiMRDiJsZqzN LcQKleqZR3FMAiFGQaj25l dMw6WHAzvkteh7BeEZXlsN EpjNYhmL9zvyBnx6tlKXDd AHUwFZEbX7RaIYU8zISjZF EfqZWfdWN5BU3hooNmUH8x ZGUgYnkgcmVzaWRlbnRzLC BwUKbuy9mzZK2jZWNfpHat oD9xyOA8YZGio8ltwFVcsQ Mli7zrw6EstcQdUFdvPIQt NCcoTDPjSRWqFO1qAIJgwM UuyzOgc6W7HqrwjUXnnrri UssqfyZ4CLvopcdjJCQoHN kxT8eaZqNyAYVqaAcdRjdz z9IySQCjKDWkJzhxhQFuyY 0= Clinical Information Large bowel (test code = obstruction [K56.609] 2734865167) Gross Description (test s3awpXKhBYOmfNRqQdOsJS code = 2576885402) BoOKWmk4lgXQLrqHZcQdEp MzNcZnRuYmpcdWMxXGRlZm Dcb4ttd589sPQjw1iyQPPu CfX5oBTiXGOqdBLkO567TT IeRQznh5muo3QfWTJooKAd e1T2ZMSPqqnfeCe7vMjuY5 2hn7O7UvqjY4amDRFpEVgz KGEyYXgfvTLsVBA5BPZiJJ V9WQkealKxtvJ5AYdmmOAx BfN7ZOi3l3pfuXtkMYEgUV F7k3qxCNfhkaUgRP1kxg8r fBi2k9pgvuQbWVNfCXRibN HENHIlM8KzpOahZh5jdQv6 fQveZlfeAPO0Pob9RM3xtk 26lan7oYhhHUHtbaihVyY0 VKafGJGfezryZGg3HYlkQB CvgIKhQSFbdXTdU1MfHWni FO5ynwk2RrVzKR9slpweCS dtDNOpYQL8YsOjJMCpa2By zshcQmCwkf8bdz69GNT4a6 PdxHhwZGR7UOS1UvSfEh0f sPYtSQJsSX6nIpMvpOVhWL Luod95aObzPGtfkzBadP4a AcIgOLRxkUEjGDAbTW3zsD EePWHkvE3uqwciIKLxDjXq mlhgXQTtoGkdinQqWf2adW gaKPA6LTihF9btvU5nMmP4 UIteH7hqtV6nWPj2LPuvwG P0CKZzlF5mKO6jannnz1am GTQ2HHblDOAaozH2fmQjIG AyrUXwK1IemK96WzUxzBDb Q6TktQ8nBApjRIXdbfy7Lw WvCw8ckLKlsZO4FFptVgiu YWdlXHBnbmNvbnRccGduZG VjXHBsYWluXHBsYWluXGYw PLPnZxPecZdovDrofV8gRz BcZnMyMFxwbGFpblxmMVxm czIwIFNwZWNpbWVuIEEgaX RusmVaNCt5VFVmMxBjt9hf pGQjQYneFXQuj9n1mAD8dY AztVO4eWNdqWgvBP6whDLj RGVDUK13nJWwzqZlO89xf3 2dJGIemVHwNLInWR6wlA2d fEFym8kcF3RonSphTZAwmc ZaZ71ov0hwrBSas3XhANT9 x2HgvYYdo6qdY6UusQqtv0 DjJ5owSS3kYNvxEtKjV09s cS7ipDJiO0ToHStpGW4kQR QtWsKdG07hwO0sTMzquCQ5 KHLzSZuxfGdwKDA7YWQdMS BznLZvwSrkHNfflIwmtV1n QAAoCZLmcSBcieTpSG0hdS vswWK6TmKsQ51qRVksqPD0 BHLpICN0rCGaVY6oEEcvz8 NzbHkgaWRlbnRpZmlhYmxl TNYbdMRiAGd0WuTXoZZdp7 Sdx5GhFZdwLQVqvf7qTETv TQ7yBSZtm053yPD8bCQyLQ CtkDR0BPIpbgZgz7Fsvv3r VGhlIHNwZWNpbWVuIGlzIG 9xEU3qNGUoeY7tTgHaoEQa XM75qA8vs7HteSWleNEtHs 9yZGVyLiBUaGVyZSBpcyBh BEHvjbV2gTNfiiNheFgqhK F4OHwaNIbzVVnhYDIhP4Vs AZPob24cLTGfdfK8hA15es IzuTBqTEL8HOAvNRLafVGe NjObT91sXiUroIO7dFDsNM gaxZWcAE5tibvvqeQptfFp ZLKrK95oWxDqjAY1cCXdqZ XalWjfFZjsgJQeQ3jhGrFK ye43oF6lyAS3fjY1zPPuxT QrrqnfsSLwiNVdQO54bB1u UHKuc7OiS6kgTDmmq7Eaad V6nUDsYb25QMmohFOmIXse dGVuZGVkIGZvciBhIGxlbm j3tBUrKoCtKS7dRCPdDgAR oXFrgU2xePrhKCGfe8Udqf YeILCmVJtul55ixGvwRH63 Y14fDIIonfChe5DjbJq1HM KiRSC3MZ2bTNekG2UysqEe YXIsIHdpdGggYXJlYXMgb2 GlA32jFexsl1RvnsAaCIYp OVCfBQ7qKLWpyuRzR5ypDm Tvnw6mODEkEC3bQn78GDVv ZX7gCDqkNNbcwLvzx0KjnO wrFONix4AatlJwMZVyDIdr g70lyKGldJlyI4sqceWdZW OeBLUajBLxURM3JIhjDP7x qD6mBLVdm26vNN5rLQFxCk QyvGniSSEcGJExJM5xdG5x ayupiMUqj5DaBV7yMKIyEM Ucm2jemiBfstF6IY4lrOmr blQndjQkcYkiZOTjz4XupE VxXGDdkN6lEVUhLBRgatBi ko2yr0f7HOWkZWKnMK4eVK DpkUgjRGelXO0aGMOviNIs tM5ptHeacmF8qBQgNJMdln BhbiBhZGRpdGlvbmFsIHdl yPaaiGCgiGRqDRG2umtvF1 IxCBCuHPBxAHVjc4XcvIO1 kfG6vMVusNlgs6FvA3PyND n6opZ1oN6nRSBoKHDjVGzo QWXmwK8qk4yioWQjyPccb3 TiT0BbAEQlcQZsCKistOiw LJ6yLWY0CQGgAZTbq5ZspE NgfTNkNzGcfeYrk1WoloAb XTCsWZIknFCpniWzOJ5ruI biEzipFL36DWKyGKoqXBHx AF5qvIQsZZJ1gUPvKULkw0 FhoDHfAPFsUMDvk7GmlFzp IGxpbmUgYXQgdGhlIGJsaW 9eIWCiZIgcc8Mktf16wmBi XCOwjYHxgOXmZ1xaIDMjRO shl1LcDUArs9S6DX6jCKmy IHJlbWFpbmluZyBtdWNvc2 Kjq3QlsJhkEPruZDNsPTwz MICuRdU3t8YjxMUftJImwW BhbmQgdGhlIHZpYWJpbGl0 hGWqGkZ7hSNlseNbBRP2pS 4cZN0tfelrzdSlMU2wb9Ao NpMsP5Bck7XgiAHuPFYvzr 1pbmVkLiBUaGUgcGVyaWNv lB0seXHoPCRkhK8xYRQ0cR KkhTKghNArlOOhhZP6TKFy Sn2nRMEtoQ8bl2dqaUZalK vjjMfajj2sCNUdMQFshzgl oaenOxQvyXJpIiGnFV01CC ZwQHhcUGaoYLQ4UIZ3HEVe gGNnm1ncdxugLTKxbDUqd4 LufDM2cXCjTFGuQ6Kmw49c HWMvXFFyoFNcvVV0TDDrlU 4gQTEtQTEwLlxwYXJccGFy RQCsK9Jgb26pO90eOWsbzT BrIDMmXjIPnb26xK0auFRs AJEtH1Goa34orTVeT9xrBR BlbiBmYWNlLCByZXByZXNl vePwwTo5NJgiYZOvZSN5EG Ney5BcgWAkLIPdF6Hdj99k tEYiP7hdZPQylyRkYQBgUQ RcQHSyJZTqhoVpnNz6CTit JFGtJNJ6AUtmHC9uBUKeoH AphO4erLkmzyM6uGNqFJD1 pesdG0TtXITqXDOkWJSrrE Udu8RxgWE0pDPbZFZmkhJK WQvcOdQemyTcGD79FSCriw Dop3OfiRxzmgIjt5BofFUu y8IlJIXaPSC1JRpdPHWrw1 hpbWFsIHRvIHRoZSBkaXN0 XV4uQBHbZWNxQFsmMSQvVN FdNJP4PMOquYYyu5GbqDZ7 hESiMGIuP7Pgl38aGE7sAM 27F98fMBSnpdMxk8IzmLKq cz3tOOXeRRZnbDK0LC3lBE HsGDCwTQrpIPOgBOn6FZNa ORKpk4GbJTQ2ewhsE4GmZU NjYXIgZGlzdGFsIHRvIGRp x8XabvBxNJScisVyADUoSC GrPKGozdOgsKs4SFudZKGt XXo9IAFvgASlp3FfvHT3lY RjRZDlA9Tfp72qGZ6qAF38 B72mOXHjcmSvj8JbcTUrnZ X5JMfshT3xfJgbKTTuy5Md bmRlZCBhcmVhXHBhciBBOT kvAL8wc0hklYHdmTbge6Iy U4XqRBJlxCUfXZHqXMMoPF UjjbIqqTs2VPamRENeCJDq SqMAql1mkkYkIFI3zO4jGB 9mIGludGVzdGluZSBhdHRh A5drHXF0ctQhg6KciVRhNY FqbNSlG3AjMJgtulDyxeJe UECaoEUvs8NizSA3mHJgWB JrsmIMUQM0EKJupI3hv0yt uWKcuQzrfTayvq4eIZWjWB vdc9coEPkaZWGntDNtZWYl muLoyNjuiN7bXrVlLgGwON xwbGFpblxmMVxmczIwIFNw ZWNpbWVuIEIgaXMgcmVjZW l4SBOwDpTpx9pqvLHlEPse KCU0kBUrXWBtVFRpRNGvUR 72Q8EvbaXoWKlaJJnazxIp LiTqCMFaa6fjhfsoII1yvI ZnJLzzJVezFmgoMI6oPKLx dfQrn9NsKZ4bDOHyPZ5ts9 ZokS9krP7rXXJvrhS0mzUr KC51BJxqIU14WOwjZJ10SM NtIGFuZCAyLjUgeCAxLjkg sSOwQgakF06fVkPIa0OyXL EajnS1ncNnakCwXqrhOLE7 CZOrLIZsTBVzjDPsbZ9mtj XxawLzsDDnnEU2OKIgXT66 vTHqqLigNB8jGxPnIQSbqa BFCS0AMddifVNeF0WfOMTb unZ0UCpiHNSnYDAqBFHwVG BzbWFsbGVyIGRvdWdobnV0 IGluIEIzLiBccGFyXHBhci YZAVI9QQEkczAjbYqnUQYD DLOqIHNcQ4A4LPXqkPupGV LuRGJ0jvVhGPLsB8EfTEUZ LQMWC9GpGASzPOtfHDKbFC ZzMTZcbGFuZzEwMzNcaGlj aFxmMVxkYmNoXGYxXGxvY2 aiViZtV4LdLGWnXXUpA56m aQypmD4mAaImCuFpCCeiUT IutPnnrDoymT6iKbDrDgMz MFxwbGFpblxmMVxmczIwXH Bhcn0= Embedded Images (test code = 9515238093) [facility]Int[facility] 16:04:Ana Ahn MD ? ? 04/06/2020 11:06 AMIntubationUrgency: emergent Difficult airway General Information and Staff Patient location during procedure: ORAnesthesiologist: Cynthia Herring, MDResident/MEDICAL STENOGRAPHER: Dana Sampson DOPerformed: anesthesiologist and resident/MEDICAL STENOGRAPHER Indications and Patient ConditionIndications for airway management: [...] from glidescope to advance tube into airway. [facility] CenterInt[facility]2020-08-14 16:04:Ana Ahn MD ? ? 04/08/2020 ?5:11 AMIntubationUrgency: emergent Difficult airway General Information and Staff Patient location during procedure: ORAnesthesiologist: Cynthia Herring MDResident/MEDICAL STENOGRAPHER: Dana Sampson DOPerformed: anesthesiologist and resident/MEDICAL STENOGRAPHER Indications and Patient ConditionIndications for airway management: [...] glidescope to advance tube into airway. Additional MvejswyfK9s on VL by CA1, multiple attempts by CA1 with ETT with stylet and bougie, unable to pass ETT through glottis. BVM between attempts. Glidescope stylet with ETT used by faculty under VL, attempt x 1 by faculty, g1v, atraumatic.[facility] CenterXR [id number] 15:42:20 Large volume pneumoperitoneum. Continued gaseous distention and dilatation of the stomach and smallbowelfollowing total colectomy with ileoanal anastomosis may representpostoperative ileus. Findings regarding pneumoperitoneum [facility]. Preliminary Report Dictated by Resident: Bart [...] small bowel and issimilar to prior radiographs. [place] project over the midline in the lowerabdomen.IMPRESSIONLarge volume pneumoperitoneum.Continued gaseous distention and dilatation of the stomach and small bowelfollowing total colectomy with ileoanal anastomosis may representpostoperative ileus.Findings regarding pneumoperitoneum were [facility].Preliminary Report Dictated by Resident: Bart Klein reviewed this study and agree.I, Weston Wu MD., have reviewed this study andagree with theabove report. [facility] CenterType and Screen - ONCE [id number] 15:18:48 Test Item Value Reference Range Interpretation Comments ABO & RH (test code O POSITIVE Performe d at [facility] = 20) [facility] Blood Bank3 [facility] s [address]Ebpf Free: [phone] A No. [id number] IAT (test code = Negative Performed a t [facility] 1185) [facility] Blood Bank3 [address] [facility] s [address]Xtts Free: [phone] A No. [id number] [facility] CenterXR CHEST 1 [id number] 15:09:51 1. ?Interval development of a large [...] the midline and inferiorly beyondthe diaphragm and xiupk-sh-peph. Left diaphragm is elevated with interval development of large amount offree air noted under the diaphragms, better seen on concomitant abdominalx-ray. Lungs are clear without focal consolidation, pleural effusion orpneumothorax. The cardiomediastinal silhouette is stable. ?No acute osseousabnormalities. 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 Left diaphragm is elevated with interval development [...] have reviewed this study and agree with theabovereport.[facility] [id number] 14:52:Ana Schulz MD ? ? 04/06/2020 ?9:53 [...] tolerated procedure well with no complications ? [facility] [id number] 14:52:Ana Schulz MD ? ? 04/06/2020 ?9:53 [...] tolerated procedure well with no complications ? [facility] [id number] 14:51:44Ana Syed MD ? ? 04/06/2020 ?9:52 [...] complications and all wires accounted for _ [facility] CenterArterial [id number] 14:51:44Ana Syed MD ? ? 04/06/2020 ?9:52 [...] complications and all wires accounted for _ [facility] CenterCBC WITH [id number] 13:22:00 Test Item Value Reference Range Interpretation Comments WBC (test code = See_Comment LL [Automated 1313-2) message] The system which generated this result [...] RDW-SD (test code = 47.8 fL 38.5-51.6 17534-2) RDW-CV (test code = 14.6 % 12.1-15.4 788-0) PLT (test code = See_Comment [Automated 777-3) message] The system which generated this result transmitted reference range : 150 - 328 10*3/?L. The reference range was not used to interpret this result as normal/abnormal . MPV (test code = 12.1 fL 9.8-13 49510-9) NRBC/100 WBC (test See_Comment [Automat ed code = 1746027904) message] The system which generated this result transmitted reference range : 0.0 - 10.0 /100 WBCs. The reference range was not used to interpret this result as normal/abnormal . NRBC x10^3 (test code <0.01 See_Comment [Auto mated = 6579946348) message] The system which generated this result transmitted reference range : 10*3/?L. The reference range was not used to interpret this result as normal/abnormal . GRAN MAT (NEUT) % 71.6 % (test code = 770-8) IMM GRAN % (test code 0.90 % = 6405944681) LYMPH % (test code = 18.3 % 736-9) MONO % (test code = 9.2 % 5905-5) EOS % (test code = 0.0 % 713-8) BASO % (test code = 0.0 % 706-2) GRAN MAT x10^3(ANC) 0.78 10*3/uL 1.99-6.95 L (test code = 0608588957) IMM GRAN x10^3 (test <0.03 0-0.06 code = 6616907615) LYMPH x10^3 (test 0.20 10*3/uL 1.09-3.23 L code = 731-0) MONO x10^3 (test code 0.10 10*3/uL 0.36-1.02 L = 742-7) EOS x10^3 (test code <0.03 0.06-0.53 L = 711-2) BASO x10^3 (test code <0.03 0.01-0.09 = 704-7) GOLDEN CELLS (test code 2+ See_Comment A [Auto mated = 8827-9) message] The system which generated this result transmitted reference range : (none). The reference range was not used to interpret this result as normal/abnormal . BANDS (test code = MARKED INCREASED A 6196533100) Lab Interpretation Abnormal (test code = 80559-0) [facility] METABOLIC PANEL (NA, K, CL, CO2, GLUCOSE, BUN, CREATININE, CA)2020-04-06 12:38:00 Test Item Value Reference Range Interpretation Comments NA (test code = 134 mmol/L 135-145 L 3004407488) K (test code = 4.5 mmol/L 3.5-5 8283324817) CL (test code = 105 mmol/L 98-108 2583557036) CO2 TOTAL (test code = 18 mmol/L 23-31 L 9255629903) AGAP (test code = 2-16 0390806640) BUN (test code = 30 mg/dL 7-23 H 6946572468) GLUCOSE (test code = 117 mg/dL 70-110 H 9839734335) CREATININE (test code = 1.95 mg/dL 0.6-1.25 H 4117627369) CALCIUM (test code = 8.6 mg/dL 8.6-10.6 0145703042) eGFR Calculation mL/min/1.73m2 (Non-) (test code = 2937991204) eGFR Calculation mL/min/1.73m2 () (test code = 2958007265) GILBERTO (test code = GILBERTO) Association of [...] tests). Lab Interpretation Abnormal (test code = 31788-2) [facility] CenterMAGNESIUM2020-08-14 12:38:00 Test Item Value Reference Range Interpretation Comments MAGNESIUM (test code = 8450668137) 2.3 mg/dL 1.7-2.4 Lab Interpretation (test code = Normal 78657-8) [facility] CenterXR [id number] 23:28:32 Prominent gaseous distention of small bowel [...] pelvis. Note: Left hemidiaphragm isnot fully within ldtxh-ag-wlfk. FINDINGS: Status post colectomy. Massive gaseous distention [...] and pelvis.Note: Left hemidiaphragm isnot fully within nyswu-xb-ucrf.FINDINGS:Status post colectomy.Massive gaseous distention of the stomach [...] this study and agree with theabove report. [facility] CenterXR [id number] 23:22:45 Esophogastric tube tip projects over the stomach fundus. Redemonstration of extensive small bowel dilatation in the recentpostoperative setting status post total colectomy with ileoanalanastomosis. Findings may represent severe ileus. Correlate clinically. Preliminary Report Dictated by Resident: Louis Donnelly MD., have reviewed this study and agree with theabove report.EXAM: XRKUB HISTORY: post ngt placement COMPARISON: [facility] 04/05/2020 Technique: Single AP view of the upper abdomen. Note: Bilateralhemidiaphragms and upper abdomen are not within wynor-mz-ecer. FINDINGS: The tipof the esophogastric tube projects over the expected position ofstomach fundus with the side-port projecting over the proximal stomach. Significant distention of small bowel and stomach minimally improved fromreference exam from 04/22/2020 at 14:49. No evidence of pneumoperitoneumwithin limits of supine exam. Surgical carmenza project over the midline andbilateral mid to lower abdomen. [facility], Radiant Results Inft User - 04/05/2020 6:23 PM CDTEXAM: XR KUBHISTORY: post ngt placement COMPARISON: [facility] 04/05/2020Technique: Single AP view of the upper abdomen. Note: Bilateralhemidiaphragms and upper abdomen are not within ftkkh-ph-seby.FINDINGS:The tip of the esophogastric tube projects over [...] reviewed this study and agree with theabove report.[facility] CenterBA[facility] (NA, K, CL, CO2, GLUCOSE, BUN, CREATININE, CA)2020-04-05 11:08:00 Test Item Value Reference Range Interpretation Comments NA (test code = 137 mmol/L 135-145 2423979164) K (test code = 4.4 mmol/L 3.5-5 8892739028) CL (test code = 104 mmol/L 98-108 7631310336) CO2 TOTAL (test code = 24 mmol/L 23-31 2994650712) AGAP (test code = 2-16 7985376114) BUN (test code = 10 mg/dL 7-23 9652284784) GLUCOSE (test code = 104 mg/dL 70-110 7744563366) CREATININE (test code 1.18 mg/dL 0.6-1.25 = 3652285121) CALCIUM (test code = 8.7 mg/dL 8.6-10.6 8219392010) eGFR Calculation mL/min/1.73m2 (Non-) (test code = 2121390485) eGFR Calculation mL/min/1.73m2 () (test code = 3296440537) GILBERTO (test code = GILBERTO) Association of [...] or urine or abnormalities in imaging tests). [facility] CenterMAGNESIUM2020-08-13 11:08:00 Test Item Value Reference Range Interpretation Comments MAGNESIUM (test code = 7106140935) 2.3 mg/dL 1.7-2.4 Lab Interpretation (test code = Normal 89373-9) [facility] WITH [id number] 10:32:00 Test Item Value Reference Range Interpretation [...] RDW-SD (test code = 47.8 fL 38.5-51.6 08406-1) RDW-CV (test code = 14.6 % 12.1-15.4 788-0) PLT (test code = See_Comment [Automated 777-3) message] The sy stem which generated this result transmitted reference range : 150 - 328 10*3/ ?L. The reference r meredith was not used to interpret this result as normal/abnormal . MPV (test code = 11.6 fL 9.8-13 40812-9) NRBC/100 WBC (test See_Comment [Automat ed code = 3317466556) message] The system which generated this result transmitted reference range : 0.0 - 10.0 /100 WBCs. The refer ence range was not u sed to interpret th is result as normal/abnormal . NRBC x10^3 (test code <0.01 See_Comment [Auto mated = 7133666915) message] The s ystem which generated this result transmitted reference range : 10*3/?L. The reference range was not used to interpret this result as normal/abnormal . GRAN MAT (NEUT) % 82.4 % (test code = 770-8) IMM GRAN % (test code 0.30 % = 0206921874) LYMPH % (test code = 12.4 % 736-9) MONO % (test code = 4.5 % 5905-5) EOS % (test code = 0.2 % 713-8) BASO % (test code = 0.2 % 706-2) GRAN MAT x10^3(ANC) 5.12 10*3/uL 1.99-6.95 (test code = 5696264614) IMM GRAN x10^3 (test <0.03 0-0.06 code = 6932593916) LYMPH x10^3 (test code 0.77 10*3/uL 1.09-3.23 L = 731-0) MONO x10^3 (test code 0.28 10*3/uL 0.36-1.02 L = 742-7) EOS x10^3 (test code = <0.03 0.06-0.53 L 711-2) BASO x10^3 (test code <0.03 0.01-0.09 = 704-7) Lab Interpretation Abnormal (test code = 97711-2) [facility] METABOLIC PANEL (NA, K, CL, CO2, GLUCOSE, BUN, CREATININE, CA)2020-04-04 11:02:00 Test Item Value Reference Range Interpretation Comments NA (test code = 135 mmol/L 135-145 4062253288) K (test code = 4.4 mmol/L 3.5-5 Slight 3092163890) hemolysis CL (test code = 103 mmol/L 98-108 5793127327) CO2 TOTAL (test code 26 mmol/L 23-31 = 2697367484) AGAP (test code = 2-16 3133142891) BUN (test code = 7 mg/dL 7-23 Slight 2353292555) hemolysis GLUCOSE (test code = 119 mg/dL 70-110 H 8207271682) CREATININE (test code 0.95 mg/dL 0.6-1.25 = 1425484233) CALCIUM (test code = 8.3 mg/dL 8.6-10.6 L 9785818367) eGFR Calculation mL/min/1.73m2 (Non-) (test code = 8366541144) eGFR Calculation mL/min/1.73m2 () (test code = 1887678096) GILBERTO (test code = GILBERTO) Association of [...] tests). Lab Interpretation Abnormal (test code = 08406-2) [facility]MAG[facility]UM2020-08-12 11:02:00 Test Item Value Reference Range Interpretation Comments MAGNESIUM (test code = 3766008556) 1.7 mg/dL 1.7-2.4 Lab Interpretation (test code = Normal 92302-2) [facility] WITH [id number] 10:31:00 Test Item Value Reference Range Interpretation [...] RDW-SD (test code = 46.5 fL 38.5-51.6 77371-3) RDW-CV (test code = 14.3 % 12.1-15.4 788-0) PLT (test code = See_Comment L [Automated 777-3) message] The sy stem which generated this result transmitted reference range : 150 - 328 10*3/ ?L. The reference r meredith was not used to interpret this result as normal/abnormal . MPV (test code = 11.2 fL 9.8-13 30934-4) NRBC/100 WBC (test See_Comment [Automat ed code = 6599452427) message] The system which generated this result transmitted reference range : 0.0 - 10.0 /100 WBCs. The refer ence range was not u sed to interpret th is result as normal/abnormal . NRBC x10^3 (test code <0.01 See_Comment [Auto mated = 7035515017) message] The s ystem which generated this result transmitted reference range : 10*3/?L. The reference range was not used to interpret this result as normal/abnormal . GRAN MAT (NEUT) % 76.7 % (test code = 770-8) IMM GRAN % (test code 0.30 % = 6401440384) LYMPH % (test code = 16.4 % 736-9) MONO % (test code = 6.2 % 5905-5) EOS % (test code = 0.2 % 713-8) BASO % (test code = 0.2 % 706-2) GRAN MAT x10^3(ANC) 5.12 10*3/uL 1.99-6.95 (test code = 5037652597) IMM GRAN x10^3 (test <0.03 0-0.06 code = 3952649464) LYMPH x10^3 (test code 1.09 10*3/uL 1.09-3.23 = 731-0) MONO x10^3 (test code 0.41 10*3/uL 0.36-1.02 = 742-7) EOS x10^3 (test code = <0.03 0.06-0.53 L 711-2) BASO x10^3 (test code <0.03 0.01-0.09 = 704-7) Lab Interpretation Abnormal (test code = 56392-1) [facility] WITH [id number] 11:04:00 Test Item Value Reference Range Interpretation [...] RDW-SD (test code = 45.6 fL 38.5-51.6 33983-3) RDW-CV (test code = 14.0 % 12.1-15.4 788-0) PLT (test code = See_Comment L [Automated 777-3) message] The sy stem which generated this result transmitted reference range : 150 - 328 10*3/ ?L. The reference r meredith was not used to interpret this result as normal/abnormal . MPV (test code = 11.2 fL 9.8-13 54669-0) NRBC/100 WBC (test See_Comment [Automat ed code = 3352414865) message] The system which generated this result transmitted reference range : 0.0 - 10.0 /100 WBCs. The refer ence range was not u sed to interpret th is result as normal/abnormal . NRBC x10^3 (test code <0.01 See_Comment [Auto mated = 0998854622) message] The s ystem which generated this result transmitted reference range : 10*3/?L. The reference range was not used to interpret this result as normal/abnormal . GRAN MAT (NEUT) % 52.7 % (test code = 770-8) IMM GRAN % (test code 0.30 % = 2296346390) LYMPH % (test code = 34.6 % 736-9) MONO % (test code = 9.6 % 5905-5) EOS % (test code = 2.2 % 713-8) BASO % (test code = 0.6 % 706-2) GRAN MAT x10^3(ANC) 1.88 10*3/uL 1.99-6.95 L (test code = 6220667238) IMM GRAN x10^3 (test <0.03 0-0.06 code = 8576573363) LYMPH x10^3 (test code 1.23 10*3/uL 1.09-3.23 = 731-0) MONO x10^3 (test code 0.34 10*3/uL 0.36-1.02 L = 742-7) EOS x10^3 (test code = 0.08 10*3/uL 0.06-0.53 711-2) BASO x10^3 (test code <0.03 0.01-0.09 = 704-7) REACT LYMPHS (test Rare code = 7300976201) Lab Interpretation Abnormal (test code = 70052-3) [facility] METABOLIC PANEL (NA, K, CL, CO2, GLUCOSE, BUN, CREATININE, CA)2020-04-03 10:54:00 Test Item Value Reference Range Interpretation Comments NA (test code = 140 mmol/L 135-145 2340727701) K (test code = 3.9 mmol/L 3.5-5 5562549618) CL (test code = 107 mmol/L 98-108 6914566956) CO2 TOTAL (test code = 28 mmol/L 23-31 4597709452) AGAP (test code = 2-16 4657599064) BUN (test code = 4 mg/dL 7-23 L 4313825576) GLUCOSE (test code = 88 mg/dL 70-110 0046416538) CREATININE (test code = 0.96 mg/dL 0.6-1.25 0756868224) CALCIUM (test code = 8.6 mg/dL 8.6-10.6 1009730940) eGFR Calculation mL/min/1.73m2 (Non-) (test code = 3883683683) eGFR Calculation mL/min/1.73m2 () (test code = 3725555765) GILBERTO (test code = GILBERTO) Association of [...] tests). Lab Interpretation Abnormal (test code = 04889-6) [facility]2020-08-11 10:54:00 Test Item Value Reference Range Interpretation Comments MAGNESIUM (test code = 5732692063) 2.0 mg/dL 1.7-2.4 Lab Interpretation (test code = Normal 00090-1) [facility] - ONCE [id number] 23:40:25 Test Item Value Reference Range Interpretation Comments ABO & RH (test code O POSITIVE Performe d at [facility] = 20) Laboratory [facility] Blood Bank3 [facility] s [address]Lbbv Free: [phone] A No. [id number] IAT (test code = Negative Performed a t [facility] 1185) [facility] Blood Bank3 [facility] s [address]Uesn Free: [phone] A No. [id number] [facility] WITH [id number] 11:21:00 Test Item Value Reference Range Interpretation [...] RDW-SD (test code = 45.8 fL 38.5-51.6 28561-4) RDW-CV (test code = 14.2 % 12.1-15.4 788-0) PLT (test code = See_Comment L [Automated 777-3) message] The sy stem which generated this result transmitted reference range : 150 - 328 10*3/ ?L. The reference r meredith was not used to interpret this result as normal/abnormal . MPV (test code = 10.6 fL 9.8-13 91921-9) NRBC/100 WBC (test See_Comment [Automat ed code = 8468258659) message] The system which generated this result transmitted reference range : 0.0 - 10.0 /100 WBCs. The refer ence range was not u sed to interpret th is result as normal/abnormal . NRBC x10^3 (test code <0.01 See_Comment [Auto mated = 2563869086) message] The s ystem which generated this result transmitted reference range : 10*3/?L. The reference range was not used to interpret this result as normal/abnormal . GRAN MAT (NEUT) % 46.4 % (test code = 770-8) IMM GRAN % (test code 0.30 % = 6265906838) LYMPH % (test code = 38.8 % 736-9) MONO % (test code = 10.5 % 5905-5) EOS % (test code = 3.3 % 713-8) BASO % (test code = 0.7 % 706-2) GRAN MAT x10^3(ANC) 1.41 10*3/uL 1.99-6.95 L (test code = 8536812095) IMM GRAN x10^3 (test <0.03 0-0.06 code = 3136507936) LYMPH x10^3 (test code 1.18 10*3/uL 1.09-3.23 = 731-0) MONO x10^3 (test code 0.32 10*3/uL 0.36-1.02 L = 742-7) EOS x10^3 (test code = 0.10 10*3/uL 0.06-0.53 711-2) BASO x10^3 (test code <0.03 0.01-0.09 = 704-7) HYPERSEG NEUTS (test Present See_Comment A [Autom ated code = 765-8) message] The [employer] which generated this result transmitted reference range : (none). The reference range was not used to interpret this result as normal/abnormal . Lab Interpretation Abnormal (test code = 29207-8) [facility] METABOLIC PANEL (NA, K, CL, CO2, GLUCOSE, BUN, CREATININE, CA)2020-04-02 11:05:00 Test Item Value Reference Range Interpretation Comments NA (test code = 139 mmol/L 135-145 0661532994) K (test code = 4.0 mmol/L 3.5-5 1003533831) CL (test code = 108 mmol/L 98-108 9214198886) CO2 TOTAL (test code = 25 mmol/L 23-31 2515252295) AGAP (test code = 2-16 8811418435) BUN (test code = 6 mg/dL 7-23 L 2143205105) GLUCOSE (test code = 99 mg/dL 70-110 7491461467) CREATININE (test code = 0.92 mg/dL 0.6-1.25 9618409213) CALCIUM (test code = 8.3 mg/dL 8.6-10.6 L 5555581442) eGFR Calculation mL/min/1.73m2 (Non-) (test code = 7128015922) eGFR Calculation mL/min/1.73m2 () (test code = 8931356923) GILBERTO (test code = GILBERTO) Association of [...] tests). Lab Interpretation Abnormal (test code = 95155-8) [facility]2020-[facility]-10 11:05:00 Test Item Value Reference Range Interpretation Comments MAGNESIUM (test code = 0775619632) 2.0 mg/dL 1.7-2.4 Lab Interpretation (test code = Normal 45420-3) [facility] CenterCOVID[facility] (ID NOW RAPID TESTING)2020-04-02 00:43:00 Test Item Value Reference Range Interpretation Comments SARS-CoV-2 Rapid ID NOW Not Detected Not Detected (test code = 47075-6) GILBERTO (test code = GILBERTO) ID NOW COVID-19 Assay is an isothermal nucleic acid amplification test intended for the qualitative detection of nucleic acid from SARS-CoV-2 viral RNA in nasopharyngeal (CABIN OUTFITTER) specimens. It is used under Emergency Use [...] indicated. Lab Interpretation Normal (test code = 11864-3) [facility] CenterUrinalysis2020-08-08 11:39:00 Test Item Value Reference Range Interpretation Comments APPEARANCE (test code = Hazy Clear A 2003268799) COLOR (test code = Yellow Yellow 1669908105) PH (test code = 4.8-8.0 4033893964) SP GRAVITY (test code = 1.003-1.030 H 6133477569) GLU U QUAL (test code = Normal Normal 5652225366) BLOOD (test code = Negative Negative 1296908338) KETONES (test code = 5 mg/dL Negative A 9725434462) PROTEIN (test code = Negative Negative 2887-8) UROBILIN (test code = 2.0 mg/dL Normal A 3846555548) BILIRUBIN (test code = Negative Negative 9514998089) NITRITE (test code = Negative Negative 5071731968) LEUK ROGER (test code = Negative Negative 7786412071) RBC/HPF (test code = See_Comment [Autom ated message] 8767382387) The system [employer] generated this result transmit dain reference range : 0 - 3 HPF. The refe rence range was not u sed to interpret th is result as normal/abnormal . WBC/HPF (test code = See_Comment [Autom ated message] 0041406282) The system [employer] generated this result transmit dain reference range : 0 - 5 HPF. The refe rence range was not u sed to interpret th is result as normal/abnormal . BACTERIA (test code = Negative Negative 1675594439) CA OXALATE (test code = See_Comment H [Au tomated message] 5740640678) The system [employer] generated this result transmit dain reference range : <=1 HPF. The refere nce range was not u sed to interpret th is result as normal/abnormal . Lab Interpretation (test Abnormal code = 01107-9) [facility] CenterCT ABDOMEN PELVIS W [id number] 00:38:37 1. ?Massive air distention of the [...] focal loculated drainable fluidcollection.RL: 460END OF REPORT [facility] CenterBasi Met[facility] Panel (NA, K, CL, CO2, GLUCOSE, BUN, CREATININE, CA)2020-03-30 23:45:00 Test Item Value Reference Range Interpretation Comments NA (test code = 140 mmol/L 135-145 6395809094) K (test code = 4.3 mmol/L 3.5-5 1440243600) CL (test code = 101 mmol/L 98-108 2342607154) CO2 TOTAL (test code = 28 mmol/L 23-31 1379788669) AGAP (test code = 2-16 0918792409) BUN (test code = 24 mg/dL 7-23 H 6889153156) GLUCOSE (test code = 90 mg/dL 70-110 1438820626) CREATININE (test code = 1.29 mg/dL 0.6-1.25 H 7339612303) CALCIUM (test code = 9.4 mg/dL 8.6-10.6 4924720413) eGFR Calculation mL/min/1.73m2 (Non-) (test code = 1640892462) eGFR Calculation mL/min/1.73m2 () (test code = 8742551696) GILBERTO (test code = GILBERTO) Association of [...] tests). Lab Interpretation Abnormal (test code = 17543-6) [facility] 1 [id number] 23:00:46 No evidence for an acute cardiopulmonary [...] on the March 02, 2020 exam.RL: [id number] [facility] [id number] 22:39:00 Test Item Value Reference Range Interpretation Comments TROPONIN I (test 0.008 ng/mL See_Comment [Automated code = 5736642224) message] The system which generated this result [...] ? Lab Interpretation Normal (test code = 34555-3) [facility] CenterN-TERMINAL [id number] 22:39:00 Test Item Value Reference Range Interpretation Comments NT-proBNP (test code 42 pg/mL See_Comment [Autom ated = 3810111984) message] The system which generated this result transmitted reference range : <=125. The reference range was not used to interpret this result as normal/abnormal . GILBERTO (test code = GILBERTO) Biotin has been reported to cause a negative bias, interpret results relative to patient's use of biotin. Lab Interpretation Normal (test code = 01040-9) [facility] (ALB, T.PRO, BILI T, BU/BC, ALT, AST, ALK PHOS)2020-03-30 22:27:00 Test Item Value Reference Range Interpretation Comments TOTAL BILI (test code = 6420076010) 0.5 mg/dL 0.1-1.1 BILI UNCON (test code = 3475344599) 0.3 mg/dL 0.1-1.1 BILI CONJ (test code = 0920880253) 0.0 mg/dL 0-0.3 T PROTEIN (test code = 6606461470) 6.7 g/dL 6.3-8.2 ALBUMIN (test code = 1995889483) 4.5 g/dL 3.5-5 ALK PHOS (test code = 8077747775) 57 U/L 34-122 ALTv (test code = 1742-6) 31 U/L 5-50 AST(SGOT) (test code = 5551717679) 38 U/L 13-40 Lab Interpretation (test code = Normal 66484-0) [facility] CenterLipase [id number] 22:27:00 Test Item Value Reference Range Interpretation Comments LIPASE (test code = 2511370013) 62 U/L 0-220 Lab Interpretation (test code = Normal 48230-9) [facility]eraPTT2020-[facility] 22:25:00 Test Item Value Reference Range Interpretation Comments APTT Patient (test code = See_Comment [ Automated message] 3173-2) The system whic h generated this result transmitted ref erence range: 26 - 36 Seconds. The re ference range was not u sed to interpret this result as normal/abnor mal. Lab Interpretation (test Normal code = 37468-1) [facility] CenterProthrombin Time (PT) / [id number] 22:25:00 Test Item Value Reference Range Interpretation [...] tions. Lab Interpretation (test Normal code = 46955-4) [facility]CBC with Quwghsxgqaxt1172-95-29 22:17:00 Test Item Value Reference Range Interpretation Comments WBC (test code = See_Comment [Automated 7990-2) message] The sy stem which generated this result transmitted reference range : 4.20 - 10.70 10*3/?L. The reference range was not used to interpret this result as normal/abnormal . RBC (test code = See_Comment L [Automated 264-8) message] The sy stem which generated this [...] RDW-SD (test code = 46.9 fL 38.5-51.6 31358-7) RDW-CV (test code = 14.3 % 12.1-15.4 788-0) PLT (test code = See_Comment [Automated 777-3) message] The sy stem which generated this result transmitted reference range : 150 - 328 10*3/ ?L. The reference r meredith was not used to interpret this result as normal/abnormal . MPV (test code = 10.7 fL 9.8-13 33155-5) NRBC/100 WBC (test See_Comment [Automat ed code = 8991779212) message] The system which generated this result transmitted reference range : 0.0 - 10.0 /100 WBCs. The refer ence range was not u sed to interpret th is result as normal/abnormal . NRBC x10^3 (test code <0.01 See_Comment [Auto mated = 2839554670) message] The s ystem which generated this result transmitted reference range : 10*3/?L. The reference range was not used to interpret this result as normal/abnormal . GRAN MAT (NEUT) % 51.7 % (test code = 770-8) IMM GRAN % (test code 0.40 % = 2615811619) LYMPH % (test code = 32.8 % 736-9) MONO % (test code = 12.4 % 5905-5) EOS % (test code = 2.1 % 713-8) BASO % (test code = 0.6 % 706-2) GRAN MAT x10^3(ANC) 2.76 10*3/uL 1.99-6.95 (test code = 5298917415) IMM GRAN x10^3 (test <0.03 0-0.06 code = 1069902462) LYMPH x10^3 (test code 1.75 10*3/uL 1.09-3.23 = 731-0) MONO x10^3 (test code 0.66 10*3/uL 0.36-1.02 = 742-7) EOS x10^3 (test code = 0.11 10*3/uL 0.06-0.53 711-2) BASO x10^3 (test code 0.03 10*3/uL 0.01-0.09 = 704-7) Lab Interpretation Abnormal (test code = 82863-6) [facility] with Wtczgybjdbqy6211-62-83 10:26:00 Test Item Value Reference Range Interpretation [...] RDW-SD (test code = 46.3 fL 38.5-51.6 77346-8) RDW-CV (test code = 14.2 % 12.1-15.4 788-0) PLT (test code = See_Comment L [Automated 777-3) message] The sy stem which generated this result transmitted reference range : 150 - 328 10*3/ ?L. The reference r meredith was not used to interpret this result as normal/abnormal . MPV (test code = 10.6 fL 9.8-13 23741-3) NRBC/100 WBC (test See_Comment [Automat ed code = 0188492895) message] The system which generated this result transmitted reference range : 0.0 - 10.0 /100 WBCs. The refer ence range was not u sed to interpret th is result as normal/abnormal . NRBC x10^3 (test code <0.01 See_Comment [Auto mated = 2153863970) message] The s ystem which generated this result transmitted reference range : 10*3/?L. The reference range was not used to interpret this result as normal/abnormal . GRAN MAT (NEUT) % 51.3 % (test code = 770-8) IMM GRAN % (test code 0.30 % = 3884651664) LYMPH % (test code = 32.2 % 736-9) MONO % (test code = 12.7 % 5905-5) EOS % (test code = 3.0 % 713-8) BASO % (test code = 0.5 % 706-2) GRAN MAT x10^3(ANC) 1.89 10*3/uL 1.99-6.95 L (test code = 1520957874) IMM GRAN x10^3 (test <0.03 0-0.06 code = 9930600006) LYMPH x10^3 (test code 1.19 10*3/uL 1.09-3.23 = 731-0) MONO x10^3 (test code 0.47 10*3/uL 0.36-1.02 = 742-7) EOS x10^3 (test code = 0.11 10*3/uL 0.06-0.53 711-2) BASO x10^3 (test code <0.03 0.01-0.09 = 704-7) Lab Interpretation Abnormal (test code = 46797-8) [facility] [id number] 10:17:00 Test Item Value Reference Range Interpretation Comments MAGNESIUM (test code = 4001983272) 2.0 mg/dL 1.7-2.4 Lab Interpretation (test code = Normal 40127-4) [facility] Metabolic Panel (NA, K, CL, CO2, GLUCOSE, BUN, CREATININE, CA)2020-03-26 10:17:00 Test Item Value Reference Range Interpretation Comments NA (test code = 136 mmol/L 135-145 9686156392) K (test code = 4.6 mmol/L 3.5-5 Slight 1335397130) hemolysis CL (test code = 109 mmol/L 98-108 H 5934568210) CO2 TOTAL (test code 26 mmol/L 23-31 = 2079487461) AGAP (test code = 2-16 L 2042810078) BUN (test code = 22 mg/dL 7-23 Slight 1814620028) hemolysis GLUCOSE (test code = 82 mg/dL 70-110 6868575821) CREATININE (test code 0.88 mg/dL 0.6-1.25 = 7864518810) CALCIUM (test code = 8.1 mg/dL 8.6-10.6 L 9364927333) eGFR Calculation mL/min/1.73m2 (Non-) (test code = 9938319443) eGFR Calculation mL/min/1.73m2 () (test code = 1047136295) GILBERTO (test code = GILBERTO) Association of [...] tests). Lab Interpretation Abnormal (test code = 97446-4) [facility] CenterL[facility] Acid Whole [id number] 04:22:00 Test Item Value Reference Range Interpretation Comments LACTIC ACID (test code = 1.52 mmol/L 6826330436) [facility] CenterPhosphorus Joeem4482-38-39 03:37:00 Test Item Value Reference Range Interpretation Comments PHOSPHORUS (test code = 1090801231) 4.6 mg/dL 2.5-5 Lab Interpretation (test code = Normal 73251-0) [facility] CenterMAGNESIUM2020-08-03 03:37:00 Test Item Value Reference Range Interpretation Comments MAGNESIUM (test code = 7034608088) 2.3 mg/dL 1.7-2.4 Lab Interpretation (test code = Normal 57031-6) [facility]COVID[facility] (ID NOW RAPID TESTING)2020-03-26 02:24:00 Test Item Value Reference Range Interpretation Comments SARS-CoV-2 Rapid ID NOW Not Detected Not Detected (test code = 79596-1) GILBERTO (test code = GILBERTO) ID NOW COVID-19 Assay is an isothermal nucleic acid amplification test intended for the qualitative detection of nucleic acid from SARS-CoV-2 viral RNA in nasopharyngeal (CABIN OUTFITTER) specimens. It is used under Emergency Use [...] indicated. Lab Interpretation Normal (test code = 26356-5) [facility] CenterCT [facility] P[facility] W [id number] 01:33:06 Redemonstration of severe dilatation of the [...] No focal bowel inflammation or wall thickening.. [facility] Metabolic Panel (NA, K, CL, CO2, GLUCOSE, BUN, CREATININE, CA)2020-03-26 00:57:00 Test Item Value Reference Range Interpretation Comments NA (test code = 139 mmol/L 135-145 6555059167) K (test code = 4.4 mmol/L 3.5-5 7593489276) CL (test code = 105 mmol/L 98-108 2706623076) CO2 TOTAL (test code = 29 mmol/L 23-31 4941662889) AGAP (test code = 2-16 3681959101) BUN (test code = 28 mg/dL 7-23 H 1951804001) GLUCOSE (test code = 84 mg/dL 70-110 0525923144) CREATININE (test code = 1.19 mg/dL 0.6-1.25 5744963977) CALCIUM (test code = 8.9 mg/dL 8.6-10.6 1757417735) eGFR Calculation mL/min/1.73m2 (Non-) (test code = 4891360611) eGFR Calculation mL/min/1.73m2 () (test code = 2208820889) GILBERTO (test code = GILBERTO) Association of [...] tests). Lab Interpretation Abnormal (test code = 95607-8) [facility] (ALB, T.PRO, BILI T, BU/BC, ALT, AST, ALK PHOS)2020-03-26 00:57:00 Test Item Value Reference Range Interpretation Comments TOTAL BILI (test code = 6258422346) 0.2 mg/dL 0.1-1.1 BILI UNCON (test code = 7090581546) 0.0 mg/dL 0.1-1.1 L BILI CONJ (test code = 2209656672) 0.0 mg/dL 0-0.3 T PROTEIN (test code = 7861738671) 6.2 g/dL 6.3-8.2 L ALBUMIN (test code = 5307696700) 4.1 g/dL 3.5-5 ALK PHOS (test code = 1897040629) 56 U/L 34-122 ALTv (test code = 1742-6) 24 U/L 5-50 AST(SGOT) (test code = 7761403194) 28 U/L 13-40 Lab Interpretation (test code = Abnormal 95525-6) [facility]CB with Cwbrvnlazgjd0600-17-86 00:47:00 Test Item Value Reference Range Interpretation [...] RDW-SD (test code = 45.9 fL 38.5-51.6 95522-0) RDW-CV (test code = 14.0 % 12.1-15.4 788-0) PLT (test code = See_Comment [Automated 777-3) message] The sy stem which generated this result transmitted reference range : 150 - 328 10*3/ ?L. The reference r meredith was not used to interpret this result as normal/abnormal . MPV (test code = 10.9 fL 9.8-13 73523-7) NRBC/100 WBC (test See_Comment [Automat ed code = 6053639528) message] The system which generated this result transmitted reference range : 0.0 - 10.0 /100 WBCs. The refer ence range was not u sed to interpret th is result as normal/abnormal . NRBC x10^3 (test code <0.01 See_Comment [Auto mated = 2932332680) message] The s ystem which generated this result transmitted reference range : 10*3/?L. The reference range was not used to interpret this result as normal/abnormal . GRAN MAT (NEUT) % 49.8 % (test code = 770-8) IMM GRAN % (test code 0.20 % = 0391859963) LYMPH % (test code = 32.0 % 736-9) MONO % (test code = 14.3 % 5905-5) EOS % (test code = 3.0 % 713-8) BASO % (test code = 0.7 % 706-2) GRAN MAT x10^3(ANC) 2.29 10*3/uL 1.99-6.95 (test code = 0768324679) IMM GRAN x10^3 (test <0.03 0-0.06 code = 7203849841) LYMPH x10^3 (test code 1.47 10*3/uL 1.09-3.23 = 731-0) MONO x10^3 (test code 0.66 10*3/uL 0.36-1.02 = 742-7) EOS x10^3 (test code = 0.14 10*3/uL 0.06-0.53 711-2) BASO x10^3 (test code 0.03 10*3/uL 0.01-0.09 = 704-7) Lab Interpretation Abnormal (test code = 40659-8) [facility] CenterMagnesium [id number] 05:23:00 Test Item Value Reference Range Interpretation Comments MAGNESIUM (test code = 1640101493) 2.1 mg/dL 1.7-2.4 Lab Interpretation (test code = Normal 61396-7) [facility]COVID[facility] (ID NOW RAPID TESTING)2020-03-03 04:45:00 Test Item Value Reference Range Interpretation Comments SARS-CoV-2 Rapid ID NOW Not Detected Not Detected (test code = 96669-6) GILBERTO (test code = GILBERTO) ID NOW COVID-19 Assay is an isothermal nucleic acid amplification test intended for the qualitative detection of nucleic acid from SARS-CoV-2 viral RNA in nasopharyngeal (CABIN OUTFITTER) specimens. It is used under Emergency Use [...] indicated. Lab Interpretation Normal (test code = 53657-5) [facility] CenterProthrombin Time / [id number] 04:40:00 Test Item Value Reference Range Interpretation Comments PROTIME PATIENT (test See_Comment [Auto mated message] code = 5964-2) The system [employer] ich generated this result transmitted ref erence range: 10.1 - 1 2.6 Seconds. The re ference range was not u sed to interpret this result as normal/abnor mal. INR (test code = 6301-6) Nor mal INR <1.1; Warfarin Therap eutic range 2.0 to 3. 0 or 2.5 to 3.5, dep ending upon the indica tions. Lab Interpretation (test Normal code = 60227-4) [facility]eraPTT2020-07-11 04:40:00 Test Item Value Reference Range Interpretation Comments APTT Patient (test code = See_Comment [ Automated message] 3173-2) The system [employer] h generated this result transmitted ref erence range: 26 - 36 Seconds. The re ference range was not u sed to interpret this result as normal/abnor mal. Lab Interpretation (test Normal code = 67324-5) [facility] CenterPhosphorus [id number] 04:31:00 Test Item Value Reference Range Interpretation Comments PHOSPHORUS (test code = 9804600235) 4.0 mg/dL 2.5-5 Lab Interpretation (test code = Normal 78040-0) [facility] CenterXR ABDOMEN ACUTE [id number] 02:54:09 Impression: No radiographic evidence for acute cardiopulmonary disease. No radiographic evidence forpneumoperitoneum. Marked gaseous distention of predominantly large bowel loops in the abdomenand pelvis, similar to prior CT of 02/26/2020. On that CT, there was atransition in the distal descending colon, without mass lesion or definitesigmoid volvulus appreciated. RL: 460 AFC: [id number] Indication: Diffuse abdominal pain, obstructionComparison: CT the [...] lesion or definitesigmoid volvulus appreciated. RL: 460AFC: [id number] signed by Angeli Carrillo MD, PhD at 03/02/2020 9:54 PM [facility] CenterUrinalysis2020-07-11 01:50:00 Test Item Value Reference Range Interpretation Comments APPEARANCE (test code = Hazy Clear A 6627358560) COLOR (test code = Tahira Yellow A 5293672114) PH (test code = 4.8-8.0 7432540544) SP GRAVITY (test code = 1.003-1.030 5331953520) GLU U QUAL (test code = Normal Normal 4627429032) BLOOD (test code = Negative Negative 5698124261) KETONES (test code = 5 mg/dL Negative A 5768849977) PROTEIN (test code = Negative Negative 2887-8) UROBILIN (test code = 2.0 mg/dL Normal A 6155339651) BILIRUBIN (test code = Negative Negative 2615929225) NITRITE (test code = Negative Negative 9323283315) LEUK ROGER (test code = Negative Negative 3123690003) RBC/HPF (test code = See_Comment [Autom ated message] 6823311302) The system [employer] generated this result transmit dain reference range : 0 - 3 HPF. The refe rence range was not u sed to interpret th is result as normal/abnormal . WBC/HPF (test code = See_Comment [Autom ated message] 4425566020) The system [employer] generated this result transmit dain reference range : 0 - 5 HPF. The refe rence range was not u sed to interpret th is result as normal/abnormal . BACTERIA (test code = Negative Negative 8810474352) MUCOUS (test code = Slight Negative LPF A 4543246773) SQ EPITH (test code = <1 See_Comment [Auto mated message] 2259120367) The system [employer] generated this result transmit dain reference range : <=2 HPF. The refere nce range was not u sed to interpret th is result as normal/abnormal . CA OXALATE (test code = See_Comment H [Au tomated message] 6137162900) The system [employer] generated this result transmit dain reference range : <=1 HPF. The refere nce range was not u sed to interpret th is result as normal/abnormal . SPERM (test code = See_Comment [Automat ed message] 2241533471) The system [employer] generated this result transmit dain reference range : <=1 HPF. The refere nce range was not u sed to interpret th is result as normal/abnormal . Lab Interpretation (test Abnormal code = 84796-7) [facility] Metabolic Panel (NA, K, CL, CO2, GLUCOSE, BUN, CREATININE, CA)2020-03-03 01:44:00 Test Item Value Reference Range Interpretation Comments NA (test code = 140 mmol/L 135-145 6612848281) K (test code = 4.1 mmol/L 3.5-5 2441184766) CL (test code = 106 mmol/L 98-108 6899570965) CO2 TOTAL (test code = 25 mmol/L 23-31 3117798369) AGAP (test code = 2-16 6914315518) BUN (test code = 17 mg/dL 7-23 9113356879) GLUCOSE (test code = 91 mg/dL 70-110 9643145159) CREATININE (test code 1.13 mg/dL 0.6-1.25 = 1780605508) CALCIUM (test code = 9.0 mg/dL 8.6-10.6 3685991888) eGFR Calculation mL/min/1.73m2 (Non-) (test code = 7633514182) eGFR Calculation mL/min/1.73m2 () (test code = 3362158781) GILBERTO (test code = GILBERTO) Association of [...] or urine or abnormalities in imaging tests). [facility] (ALB, T.PRO, BILI T, BU/BC, ALT, AST, ALK PHOS)2020-03-03 01:44:00 Test Item Value Reference Range Interpretation Comments TOTAL BILI (test code = 8666109597) 0.4 mg/dL 0.1-1.1 BILI UNCON (test code = 5325231978) 0.4 mg/dL 0.1-1.1 BILI CONJ (test code = 9931611100) 0.0 mg/dL 0-0.3 T PROTEIN (test code = 4488860495) 6.3 g/dL 6.3-8.2 ALBUMIN (test code = 3231932001) 4.2 g/dL 3.5-5 ALK PHOS (test code = 5862993480) 43 U/L 34-122 ALTv (test code = 1742-6) 20 U/L 5-50 AST(SGOT) (test code = 0044901110) 26 U/L 13-40 Lab Interpretation (test code = Normal 21844-5) [facility] WITH [id number] 01:37:00 Test Item Value Reference Range Interpretation Comments WBC (test code = See_Comment [Automated 8395-2) message] The sy stem which generated this [...] RDW-SD (test code = 45.0 fL 38.5-51.6 57406-4) RDW-CV (test code = 13.7 % 12.1-15.4 788-0) PLT (test code = See_Comment [Automated 107-3) message] The sy stem which generated this result transmitted reference range : 150 - 328 10*3/ ?L. The reference r meredith was not used to interpret this result as normal/abnormal . MPV (test code = 11.3 fL 9.8-13 46660-1) NRBC/100 WBC (test See_Comment [Automat ed code = 7680675988) message] The system which generated this result transmitted reference range : 0.0 - 10.0 /100 WBCs. The refer ence range was not u sed to interpret th is result as normal/abnormal . NRBC x10^3 (test code <0.01 See_Comment [Auto mated = 7363300844) message] The s ystem which generated this result transmitted reference range : 10*3/?L. The reference range was not used to interpret this result as normal/abnormal . GRAN MAT (NEUT) % 53.2 % (test code = 770-8) IMM GRAN % (test code 0.20 % = 0319702754) LYMPH % (test code = 34.5 % 736-9) MONO % (test code = 9.7 % 5905-5) EOS % (test code = 1.8 % 713-8) BASO % (test code = 0.6 % 706-2) GRAN MAT x10^3(ANC) 2.69 10*3/uL 1.99-6.95 (test code = 3355354013) IMM GRAN x10^3 (test <0.03 0-0.06 code = 4564032402) LYMPH x10^3 (test code 1.74 10*3/uL 1.09-3.23 = 731-0) MONO x10^3 (test code 0.49 10*3/uL 0.36-1.02 = 742-7) EOS x10^3 (test code = 0.09 10*3/uL 0.06-0.53 711-2) BASO x10^3 (test code 0.03 10*3/uL 0.01-0.09 = 704-7) Lab Interpretation Abnormal (test code = 97515-9) [facility] CenterLactic Acid Whole [id number] 01:28:00 Test Item Value Reference Range Interpretation Comments LACTIC ACID (test code = 1.62 mmol/L 4279807653) [facility] CenterDRUG PANEL 2 [id number] 22:13:00 Test Item Value Reference Range Interpretation Comments AMPHET (test code = Negative Negative 1197336925) LOS U (test code = Negative Negative 7846058380) BENZO U (test code = Negative Negative 1015267633) Cocaine Metabolite (test Negative Negative code = 4817254792) METHADONE (test code = Negative Negative 7557136035) OPIATES (test code = Negative Negative 0402292720) PCP (test code = Negative Negative 7523209028) THC (test code = Negative Negative 4870612609) GILBERTO (test code = GILBERTO) Urine Drug [...] testing). Lab Interpretation (test Normal code = 47192-9) [facility] CenterTHYROID STIMULATING [id number] 19:02:00 Test Item Value Reference Range Interpretation Comments TSH (test code = See_Comment [Automated message] 9582521142) The system [employer] generated this result transmitted ref erence range: 0.45 - 4 .70 mIU/L. The refe rence range was not u sed to interpret this result as normal/abnor mal. Lab Interpretation (test Normal code = 67155-5) [facility] acute [facility] [id number] 18:49:00 Test Item Value Reference Range Interpretation Comments FREE T3 (test code = 4951533222) 2.56 pg/mL 2.77-5.27 L Lab Interpretation (test code = Abnormal 68085-7) [facility] acute hospital [id number] 18:49:00 Test Item Value Reference Range Interpretation Comments FREE T4 (test code = See_Comment [Autom ated message] 6242621074) The system [employer] generated this result transmitted ref erence range: 0.78 - 2 .20 ng/dL:. The ref erence range was not u sed to interpret this result as normal/abnor mal. Lab Interpretation (test Normal code = 91979-9) [facility]CT [facility] P[facility] W [id number] 20:56:47 Persistent marked severe dilatation of the [...] dilation or masses. ADRENAL GLANDS: No adrenal lesions. KIDNEYS: No hydronephrosis, stones, or masses. Homogeneous [...] RETROPERITONEUM: No free air or fluid collection. LYMPHNODES: No intra-abdominal or pelvic lymph node enlargement. PELVIS/BLADDER: Bladder is fully distended with no wall thickening.Heterogeneous appearance of the prostate which indents the bladder base issuggestive of central gland enlargement/BPH. VESSELS: Unremarkable. BONES AND SOFT TISSUES: No suspicious lytic or sclerotic bony lesions. [facility], Radiant Results Inft User - 02/26/2020 3:57 PM CDTCT ABDOMEN PELVIS W CONTRASTHISTORY: 50 years-old; Male; Volvulus COMPARISON: 01/30/2020TECHNIQUE AND FINDINGS: Contiguous axial imaging from the level of the lungbases through the pubic symphysis was performed after the uncomplicatedadministration of 120 cc of intravenous Omnipaque contrast. Coronal andsagittal reconstructions were obtained. Auto mA and/or iterativereconstruction were used to reduce radiationdose.FINDINGS:LOWER THORAX: The lung bases are clear. LIVER: No focal hepatic lesions. Normal contour. Hepatomegaly, zwxhefpky51.7 cm, in the craniocaudal dimension. Diffuse hypoattenuation of thehepatic parenchyma relative to the spleen.GALLBLADDER AND BILIARY TREE: No intra or extrahepatic biliary ductaldilation. SPLEEN: Splenomegaly, measuring 13.4 cm, in the craniocaudal dimension.PANCREAS: No jama jarvis dilation or masses.ADRENAL GLANDS: No adrenal lesions.KIDNEYS: [...] NODES: No intra-abdominal or pelvic lymph node enlarge ment.PELVIS/BLADDER: Bladder is fully distended with no wall thickening.Heterogeneous appearance of the prostate which indents the bladder base issuggestive of central gland enlargement/BPH. VESSELS: Unremarkable.BONES AND SOFT TISSUES: No suspicious lytic or sclerotic bony lesions.IMPRESSIONPersistent marked severe dilatation of the transverse colon and small bowelwithout obstructing mass or mural thickening. Additionally, there isgaseous distention and dilatation of the distal bowel. These findings aregrossly unchanged compared to prior CTs. No CT evidence evidence ofvolvulus.Preliminary Report Dictated by Resident: Merritt Resendiz MD., have reviewed this study and agree withthe above report. [facility]COVID[facility] (ID NOW RAPID TESTING)2020-02-26 07:03:00 Test Item Value Reference Range Interpretation Comments SARS-CoV-2 Rapid ID NOW Not Detected Not Detected (test code = 68385-9) GILBERTO (test code = GILBERTO) ID NOW COVID-19 Assay is an isothermal nucleic acid amplification test intended for the qualitative detection of nucleic acid from SARS-CoV-2 viral RNA in nasopharyngeal (CABIN OUTFITTER) specimens. It is used under Emergency Use [...] indicated. Lab Interpretation Normal (test code = 06644-4) [facility] CenterXR ABDOMEN ACUTE [id number] 05:00:33 Impression: No radiographic evidence for acute cardiopulmonary disease. Marked gaseous distention ofthe colon, with a relative paucity of gas inthe distal sigmoid colon and rectum. This may reflect pseudoobstruction,but mechanical distal colonic obstruction cannot be excluded. RL: 460 AFC: [id number] Ordering physician: SABI Taborcation: Abdominal distention Comparison: [...] - 02/26/2020 12:02 AM CDTOrdering physician: SABI CANTUIndication: Abdominal distentionComparison: NoneFindi ngs: AP view of [...] distal colonic obstruction cannot be excluded.RL: 460AF: [id number] signed by Angeli Carrillo MD, PhD at 02/26/2020 12:00 [facility] Metabolic Panel (NA, K, CL, CO2, GLUCOSE, BUN, CREATININE, CA)2020-02-26 04:03:00 Test Item Value Reference Range Interpretation Comments NA (test code = 142 mmol/L 135-145 2381721069) K (test code = 4.1 mmol/L 3.5-5 8792710681) CL (test code = 107 mmol/L 98-108 7418082689) CO2 TOTAL (test code = 29 mmol/L 23-31 4576774538) AGAP (test code = 2-16 6934839964) BUN (test code = 13 mg/dL 7-23 4602356358) GLUCOSE (test code = 82 mg/dL 70-110 8592146620) CREATININE (test code 1.14 mg/dL 0.6-1.25 = 3596433696) CALCIUM (test code = 9.5 mg/dL 8.6-10.6 3408515689) eGFR Calculation mL/min/1.73m2 (Non-) (test code = 9967379015) eGFR Calculation mL/min/1.73m2 () (test code = 0729273593) GILBERTO (test code = GILBERTO) Association of [...] or urine or abnormalities in imaging tests). [facility] (ALB, T.PRO, BILI T, BU/BC, ALT, AST, ALK PHOS)2020-02-26 04:03:00 Test Item Value Reference Range Interpretation Comments TOTAL BILI (test code = 8255760487) 0.5 mg/dL 0.1-1.1 BILI UNCON (test code = 9004300575) 0.5 mg/dL 0.1-1.1 BILI CONJ (test code = 6322876105) 0.0 mg/dL 0-0.3 T PROTEIN (test code = 0992941996) 6.2 g/dL 6.3-8.2 L ALBUMIN (test code = 9092987090) 4.2 g/dL 3.5-5 ALK PHOS (test code = 6156188739) 40 U/L 34-122 ALTv (test code = 1742-6) 20 U/L 5-50 AST(SGOT) (test code = 0851828868) 26 U/L 13-40 Lab Interpretation (test code = Abnormal 96312-5) [facility] CenterLipase Quuym6947-90-50 04:03:00 Test Item Value Reference Range Interpretation Comments LIPASE (test code = 1899702150) 57 U/L 0-220 Lab Interpretation (test code = Normal 33762-4) [facility] CenterL[facility] Whole Egonc7959-61-57 03:52:00 Test Item Value Reference Range Interpretation Comments LACTIC ACID (test code = 1.66 mmol/L 0.5-2.2 9348496646) [facility] WITH VUGRUTLDDCJD8216-87-91 03:47:00 Test Item Value Reference Range Interpretation [...] RDW-SD (test code = 45.1 fL 38.5-51.6 48034-0) RDW-CV (test code = 13.7 % 12.1-15.4 788-0) PLT (test code = See_Comment [Automated 777-3) message] The sy stem which generated this result transmitted reference range : 150 - 328 10*3/ ?L. The reference r meredith was not used to interpret this result as normal/abnormal . MPV (test code = 10.7 fL 9.8-13 24015-5) NRBC/100 WBC (test See_Comment [Automat ed code = 6294584419) message] The system which generated this result transmitted reference range : 0.0 - 10.0 /100 WBCs. The refer ence range was not u sed to interpret th is result as normal/abnormal . NRBC x10^3 (test code <0.01 See_Comment [Auto mated = 6933233982) message] The s ystem which generated this result transmitted reference range : 10*3/?L. The reference range was not used to interpret this result as normal/abnormal . GRAN MAT (NEUT) % 63.1 % (test code = 770-8) IMM GRAN % (test code 0.40 % = 9307644468) LYMPH % (test code = 25.1 % 736-9) MONO % (test code = 9.9 % 5905-5) EOS % (test code = 1.1 % 713-8) BASO % (test code = 0.4 % 706-2) GRAN MAT x10^3(ANC) 3.52 10*3/uL 1.99-6.95 (test code = 2527799021) IMM GRAN x10^3 (test <0.03 0-0.06 code = 9486336010) LYMPH x10^3 (test code 1.40 10*3/uL 1.09-3.23 = 731-0) MONO x10^3 (test code 0.55 10*3/uL 0.36-1.02 = 742-7) EOS x10^3 (test code = 0.06 10*3/uL 0.06-0.53 711-2) BASO x10^3 (test code <0.03 0.01-0.09 = 704-7) Lab Interpretation Abnormal (test code = 09655-3) [facility]- [facility] 1 [id number] 12:53:00 Name: DORA JOSEPH [facility] : 1970 Age/S: 50 / M [address] Unit #: [id number] Loc: [place] [address] 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 Acct: [id number] Dis Date: Status: ADM IN PHONE #: [phone] Exam Date: 02/25/2020 1038 FAX #: Reason: abdominal distention EXAMS: CPT: [id number] XR ABDOMEN 1 V 90273 Fluoro Time: DAP (Gy m2): Air Kerma [...] the left lower quadrant (not previously seen) [id number] Reported and signed by: Sol Paige MD CC: Andre Solano; Mark Perea MD PAGE 1 Signed Report Name: DORA JOSEPH [facility] : 1970 Age/S: 50 / M [address] Unit #: [id number] Loc: [place] [address] 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 Acct: [id number] Dis Date: Status: ADM IN PHONE #: [phone] Exam Date: 02/25/2020 1036 FAX #: Reason: abdominal distention EXAMS: CPT: [id number] XR ABDOMEN 1 V 09910 Fluoro Time: DAP (Gy m2): Air Kerma (mGy): <Continued> Technologist: Nichole Dill RT(R) Trnscb Date/Time: 02/25/2020 (5870) [email or web address] Orig PrintD/T: S: 02/25/2020 (3777) PAGE 2 Signed Report COMPREHENSIVE METABOLIC [id number] 08:20:00 Test Item Value Reference Range Interpretation [...] 50-136 L TOTAL (test code = ALKP) GWOCDHATJ5253-35-68 08:20:00 Test Item Value Reference Range Interpretation Comments MAGNESIUM (test code = MAG) 2.2 MG/DL 1.8-2.4 N THYROID STIMULATING MAHVTHV4138-15-60 08:20:00 Test Item Value Reference Range Interpretation Comments THYROID STIMULATING HORMONE 5.430 mcIU/ML 0.340-4.820 H (test code = TSH) CBC W/AUTO MSLM2377-53-01 07:55:00 Test Item Value Reference Range Interpretation [...] N NRBC#) UA RFLX MICR CULT IF LXDGWZPZS3469-56-38 12:29:00 Test Item Value Reference Range Interpretation [...] culture: Suprapubic PainUA RFLX MICR CULT IF DNWQHKHBZ0691-04-61 12:29:00 Test Item Value Reference Range Interpretation [...] for culture: Suprapubic PainCOVID 19 Asymptomatic IH QW8231-35-59 22:09:00 Test Item Value Reference Range Interpretation [...] tent with COVID-19. - CT ABD PELVIS W/XMNY1723-27-31 21:10:00 Name: DORA JOSEPH [facility] : 1970 Age/S: 50 / M [address] Unit #: [id number] Loc: [place] [address] Phys: Evin Castellanos MD Acct: [id number] Dis Date: Status: REG ER PHONE #: [phone] Exam Date: 02/23/20202047 FAX #: Reason: diffuse abdomen pain and distention EXAMS: CPT: [id number] CT ABD PELVIS W/CONT 62478 EXAM: - CT ABD PELVIS W/CONT LOCATION: [...] 1 Signed Report (CONTINUED) Name: DORA JOSEPH [facility] : 1970 Age/S: 50 / M [address] Unit #: [id number] Loc: [place] [address] Phys: Evin Castellanos MD Acct: [id number] Dis Date: Status: REG ER PHONE #: [phone] Exam Date: 02/23/20202047 FAX #: Reason: diffuse abdomen pain and distention EXAMS: CPT: [id number] CT ABD PELVIS W/CONT 18095 <Continued> CT. No bowel wall thickening or [...] by: Marybel José M.D. CC: Susana Meza CABIN OUTFITTER; Carl Luevano MD Technologist:Rudy Zuniga, RT(R)(CT)(MRI) CTDI: DLP: Trnscb Date/Time: 02/23/2020 (2109) [email or web address] Orig Print D/T: S: 02/23/2020 (2112) PAGE 2 Signed Report- XR CHEST 1 [id number] 21:03:00 Name: DORA JOSEPH [facility] : 1970 Age/S: 50 / M [address] Unit #: [id number] Loc: [place] [address] Phys: Evin Castellanos MD Acct: [id number] Dis Date: Status: REG ER PHONE #: [phone] Exam Date: 02/23/20202055 FAX #: Reason: Code Sepsis EXAMS: CPT: [id number] XR CHEST 1 V 81733 Fluoro Time: DAP (Gy m2): Air Kerma [...] by: Monica Quijano MD CC: Susana Meza CABIN OUTFITTER; Carl Luevano MD PAGE1 Signed Report Name: DORA JOSEPH [facility] : 1970 Age/S: 50 / M [address] Unit #: [id number] Loc: [place] [address] Phys: Evin Castellanos MD Acct: [id number] Dis Date: Status: REG ER PHONE #: [phone] Exam Date: 02/23/20202055 FAX #: Reason: Code Sepsis EXAMS: CPT: [id number] XR CHEST 1 V 10165 Fluoro Time: DAP (Gy m2): Air Kerma (mGy): <Continued> Technologist: Rudy Zuniga, RT(R)(CT)(MRI) Trnscb Date/Time: 02/23/2020 (2102) JorgeW Orig Print D/T: S: 02/23/2020 (2106) PAGE [...] 8.5-10.1 N Completed by Nursing: NOHEPATIC FUNCTION OAKSD0206-14-83 20:02:00 Test Item Value Reference Range Interpretation [...] N code = ALKP) Completed by Nursing: JRTFMDTQ5618-69-13 20:02:00 Test Item Value Reference Range Interpretation Comments LIPASE (test code = LIP) 97 Unit/L 114-286 L Completed by Nursing: GMTLHMFEGG-F6234-49-02 20:02:00 Test Item Value Reference Range Interpretation [...] brittani yby method. Completed by Nursing: NOLACTIC WCLV5432-32-40 19:59:00 Test Item Value Reference Range Interpretation Comments LACTIC ACID (test code = LACT) 1.2 mmol/L 0.4-2.0 N CBC W/AUTO [id number] 19:46:00 Test Item Value Reference Range Interpretation [...] CRITERIA = MDIFF) - XR ABDOMEN 2 [id number] 06:22:00 Name: DORA JOSEPH [facility] : 1970 Age/S: 50 / M [address] Unit #: [id number] Loc: [place] [address] Phys: Leonidas Robretson MD Acct: [id number] Dis Date: Status: ADM IN PHONE #: [phone] Exam Date: 02/19/2020 0440 FAX #: Reason: megacolon EXAMS: CPT: [id number] XRABDOMEN 2 V 75305 Fluoro Time: DAP (Gy m2): Air Kerma [...] 1 Signed Report Name: DORA JOSEPH [facility] : 1970 Age/S: 50 / M [address] Unit #: [id number] Loc: [place] [address] Phys: Leonidas Robertson MD Acct: [id number] Dis Date: Status: ADM IN PHONE #: [phone] Exam Date: 02/19/2020 0440 FAX #: Reason: megacolon EXAMS: CPT: [id number] XR ABDOMEN 2 V 85799 Fluoro Time: DAP (Gy m2): Air Kerma (mGy): <Continued> Technologist: Carrie Barnett, RT(R)(CT) Trnscb Date/Time: 02/19/2020 (621) [email or web address] Orig Print D/T: S: 02/19/2020 (0625) PAGE 2 Signed ReportBASIC METABOLIC [id number] 05:52:00 Test Item Value Reference Range Interpretation [...] CA) 8.5 MG/DL 8.5-10.1 N CBC W/AUTO [id number] 05:40:00 Test Item Value Reference Range Interpretation [...] NO DIFF/SCN CRITERIA = MDIFF) BASIC METABOLIC [id number] 06:52:00 Test Item Value Reference Range Interpretation [...] CA) 8.3 MG/DL 8.5-10.1 L CBC W/AUTO [id number] 06:39:00 Test Item Value Reference Range Interpretation [...] DIFF/SCN CRITERIA = MDIFF) Coronavirus 2018 nCoV Atuxxgx7618-60-72 05:35:00 Test Item Value Reference Range Interpretation [...] NA (test code = 139 mmol/L 135-145 5632827823) K (test code = 4.3 mmol/L 3.5-5 7219631809) CL (test code = 105 mmol/L 98-108 3615510021) CO2 TOTAL (test code = 30 mmol/L 23-31 5960415489) AGAP (test code = 2-16 5821003753) BUN (test code = 6 mg/dL 7-23 L 6785353168) GLUCOSE (test code = 94 mg/dL 70-110 1034216708) CREATININE (test code = 1.07 mg/dL 0.6-1.25 9411997743) CALCIUM (test code = 9.3 mg/dL 8.6-10.6 5398231039) eGFR Calculation mL/min/1.73m2 (Non-) (test code = 7978594965) eGFR Calculation mL/min/1.73m2 () (test code = 9794989182) GILBERTO (test code = GILBERTO) Association of [...] tests). Lab Interpretation Abnormal (test code = 82281-2) [facility]UM2020-[facility]-12 16:58:00 Test Item Value Reference Range Interpretation Comments MAGNESIUM (test code = 5163914892) 2.0 mg/dL 1.7-2.4 Lab Interpretation (test code = Normal 48657-5) [facility] CenterXR [id number] 17:02:411. Interval worsening of air distended loops [...] with cecum measuring up to 15 cm. [facility] WITH [id number] 07:20:00 Test Item Value Reference Range Interpretation Comments WBC (test code = See_Comment L [Automated 1726-2) message] The sy stem which generated this result transmitted reference range : 4.20 - 10.70 10*3/?L. The reference range was not used to interpret this result as normal/abnormal . RBC (test code = See_Comment [Automated 790-8) message] The sy stem which generated this [...] RDW-SD (test code = 46.5 fL 38.5-51.6 80086-6) RDW-CV (test code = 13.9 % 12.1-15.4 788-0) PLT (test code = See_Comment L [Automated 777-3) message] The sy stem which generated this result transmitted reference range : 150 - 328 10*3/ ?L. The reference r meredith was not used to interpret this result as normal/abnormal . MPV (test code = 10.7 fL 9.8-13 69909-3) NRBC/100 WBC (test See_Comment [Automat ed code = 4572255812) message] The system which generated this result transmitted reference range : 0.0 - 10.0 /100 WBCs. The refer ence range was not u sed to interpret th is result as normal/abnormal . NRBC x10^3 (test code <0.01 See_Comment [Auto mated = 0695497399) message] The s ystem which generated this result transmitted reference range : 10*3/?L. The reference range was not used to interpret this result as normal/abnormal . GRAN MAT (NEUT) % 48.6 % (test code = 770-8) IMM GRAN % (test code 0.20 % = 4705250260) LYMPH % (test code = 39.6 % 736-9) MONO % (test code = 8.4 % 5905-5) EOS % (test code = 2.7 % 713-8) BASO % (test code = 0.5 % 706-2) GRAN MAT x10^3(ANC) 1.96 10*3/uL 1.99-6.95 L (test code = 3090942285) IMM GRAN x10^3 (test <0.03 0-0.06 code = 7079563441) LYMPH x10^3 (test code 1.60 10*3/uL 1.09-3.23 = 731-0) MONO x10^3 (test code 0.34 10*3/uL 0.36-1.02 L = 742-7) EOS x10^3 (test code = 0.11 10*3/uL 0.06-0.53 711-2) BASO x10^3 (test code <0.03 0.01-0.09 = 704-7) Lab Interpretation Abnormal (test code = 32615-5) [facility] METABOLIC PANEL (NA, K, CL, CO2, GLUCOSE, BUN, CREATININE, CA)2020-01-31 06:32:00 Test Item Value Reference Range Interpretation Comments NA (test code = 138 mmol/L 135-145 6795794691) K (test code = 4.2 mmol/L 3.5-5 Slight 0125535576) hemolysis CL (test code = 108 mmol/L 98-108 5586669064) CO2 TOTAL (test code 22 mmol/L 23-31 L = 5303148660) AGAP (test code = 2-16 3907838519) BUN (test code = 7 mg/dL 7-23 Slight 4514411698) hemolysis GLUCOSE (test code = 92 mg/dL 70-110 6625882807) CREATININE (test code 1.02 mg/dL 0.6-1.25 = 4853648909) CALCIUM (test code = 8.9 mg/dL 8.6-10.6 5873718467) eGFR Calculation mL/min/1.73m2 (Non-) (test code = 2949521877) eGFR Calculation mL/min/1.73m2 () (test code = 0789715020) GILBERTO (test code = GILBERTO) Association of [...] tests). Lab Interpretation Abnormal (test code = 95764-4) [facility] WITH BILAVSNCFZJS3320-12-54 11:00:00 Test Item Value Reference Range Interpretation [...] RDW-SD (test code = 48.7 fL 38.5-51.6 08540-5) RDW-CV (test code = 14.4 % 12.1-15.4 788-0) PLT (test code = See_Comment L [Automated 777-3) message] The sy stem which generated this result transmitted reference range : 150 - 328 10*3/ ?L. The reference r meredith was not used to interpret this result as normal/abnormal . MPV (test code = 10.7 fL 9.8-13 35177-9) IPF % (test code = 5.1 % 1.2-10.7 Platelet count 9945562612) measured by fluorescence method. NRBC/100 WBC (test See_Comment [Automat ed code = 5734911848) message] The system which generated this result transmitted reference range : 0.0 - 10.0 /100 WBCs. The refer ence range was not u sed to interpret th is result as normal/abnormal . NRBC x10^3 (test code <0.01 See_Comment [Auto mated = 7209406448) message] The s ystem which generated this result transmitted reference range : 10*3/?L. The reference range was not used to interpret this result as normal/abnormal . SEG % (test code = 53 % 33-76 12233-4) BAND % (test code = 1 % 0-1 71230-2) LYMPH % (test code = 39 % 14-54 99517-7) MONO % (test code = 4 % 0-4 50314-2) EOS % (test code = 3 % 0-3 02761-7) ANC (test code = 1.93 10*3/uL 1.99-6.95 L 9407602419) Lab Interpretation Abnormal (test code = 46278-2) [facility] Metabolic Panel (NA, K, CL, CO2, GLUCOSE, BUN, CREATININE, CA)2020-01-29 10:23:00 Test Item Value Reference Range Interpretation Comments NA (test code = 138 mmol/L 135-145 3559380310) K (test code = 4.0 mmol/L 3.5-5 0471289518) CL (test code = 109 mmol/L 98-108 H 9755876774) CO2 TOTAL (test code = 27 mmol/L 23-31 7685886622) AGAP (test code = 2-16 5047770750) BUN (test code = 16 mg/dL 7-23 6360964273) GLUCOSE (test code = 81 mg/dL 70-110 5898723505) CREATININE (test code = 1.14 mg/dL 0.6-1.25 8431431824) CALCIUM (test code = 8.6 mg/dL 8.6-10.6 9857791356) eGFR Calculation mL/min/1.73m2 (Non-) (test code = 4908989245) eGFR Calculation mL/min/1.73m2 () (test code = 8053455195) GILBERTO (test code = GILBERTO) Association of [...] tests). Lab Interpretation Abnormal (test code = 49768-8) [facility]ON[facility] COVID-19 [id number] 04:27:00 Test Item Value Reference Range Interpretation Comments SARS-CoV-2 Rapid ID NOW Not Detected Not Detected (test code = 55095-6) GILBERTO (test code = GILBERTO) ID NOW COVID-19 Assay is an isothermal nucleic acid amplification test intended for the qualitative detection of nucleic acid from SARS-CoV-2 viral RNA in nasopharyngeal (CABIN OUTFITTER) specimens. It is used under Emergency Use [...] indicated. Lab Interpretation Normal (test code = 36631-2) [facility] CenterLactic Acid Whole Sozuw9395-50-49 04:10:00 Test Item Value Reference Range Interpretation Comments LACTIC ACID (test code = 1.74 mmol/L 0.5-2.2 1725954837) [facility] CenterCOVID[facility] (ID NOW RAPID TESTING)2020-01-29 02:17:00 Test Item Value Reference Range Interpretation Comments SARS-CoV-2 Rapid ID NOW Not Detected Not Detected (test code = 34503-4) GILBERTO (test code = GILBERTO) ID NOW COVID-19 Assay is an isothermal nucleic acid amplification test intended for the qualitative detection of nucleic acid from SARS-CoV-2 viral RNA in nasopharyngeal (CABIN OUTFITTER) specimens. It is used under Emergency Use [...] indicated. Lab Interpretation Normal (test code = 78405-8) [facility] CenterUrinalysis2020-06-07 02:14:00 Test Item Value Reference Range Interpretation Comments APPEARANCE (test code = Clear Clear 8451898983) COLOR (test code = Dark Yellow Yellow A 0660825901) PH (test code = 4.8-8.0 4781378952) SP GRAVITY (test code = 1.003-1.030 H 1690882441) GLU U QUAL (test code = Normal Normal 8265236546) BLOOD (test code = 1+ Negative A 9425399486) KETONES (test code = 5 mg/dL Negative A 1490034961) PROTEIN (test code = Negative Negative 2887-8) UROBILIN (test code = Normal Normal 0930546821) BILIRUBIN (test code = Negative Negative 0397808590) NITRITE (test code = Negative Negative 1852066423) LEUK ROGER (test code = Negative Negative 0237725690) RBC/HPF (test code = See_Comment H [Autom ated 3652907188) message] The sy stem which generated this result transmitted reference range : 0 - 3 HPF. The reference range was not used to interpret this result as normal/abnormal . WBC/HPF (test code = See_Comment [Autom ated 2102985625) message] The sy stem which generated this result transmitted reference range : 0 - 5 HPF. The reference range was not used to interpret this result as normal/abnormal . BACTERIA (test code = Moderate Negative A 7254384265) MUCOUS (test code = Slight Negative LPF A 1482651433) AMORPHOUS (test code = Rare Rare HPF 2395962316) SQ EPITH (test code = <1 See_Comment [Auto mated 1661217245) message] The sy stem which generated this result transmitted reference range : <=2 HPF. The reference range was not used to interpret this result as normal/abnormal . CA OXALATE (test code = See_Comment H [Au tomated 9154644604) message] The sy stem which generated this result transmitted reference range : <=1 HPF. The reference range was not used to interpret this result as normal/abnormal . HYAL CAST (test code = See_Comment H [Aut omated 9903193864) message] The sy stem which generated this result transmitted reference range : <=2 LPF. The reference range was not used to interpret this result as normal/abnormal . ASCORBIC ACID (test Negative code = 7749983204) Lab Interpretation Abnormal (test code = 87457-0) [facility] PEL[facility] W FFCNVQVH1154-76-30 00:25:08Persistent marked and severe dilatation of the [...] is essentially stable compared to prior examination. [facility] (NA, K, CL, CO2, GLUCOSE, BUN, CREATININE, CA)2020-01-28 23:38:00 Test Item Value Reference Range Interpretation Comments NA (test code = 143 mmol/L 135-145 2645707544) K (test code = 4.2 mmol/L 3.5-5 6601154764) CL (test code = 111 mmol/L 98-108 H 0478586579) CO2 TOTAL (test code = 28 mmol/L 23-31 9484146277) AGAP (test code = 2-16 9166944976) BUN (test code = 15 mg/dL 7-23 6088569407) GLUCOSE (test code = 68 mg/dL 70-110 L 4672072967) CREATININE (test code = 1.32 mg/dL 0.6-1.25 H 1423516030) CALCIUM (test code = 9.0 mg/dL 8.6-10.6 2425030062) eGFR Calculation mL/min/1.73m2 (Non-) (test code = 3258439200) eGFR Calculation mL/min/1.73m2 () (test code = 8027554092) GILBERTO (test code = GILBERTO) Association of [...] tests). Lab Interpretation Abnormal (test code = 32975-9) [facility] (ALB, T.PRO, BILI T, BU/BC, ALT, AST, ALK PHOS)2020-01-28 23:38:00 Test Item Value Reference Range Interpretation Comments TOTAL BILI (test code = 7946717951) 0.6 mg/dL 0.1-1.1 BILI UNCON (test code = 2901833204) 0.6 mg/dL 0.1-1.1 BILI CONJ (test code = 4788811497) 0.0 mg/dL 0-0.3 T PROTEIN (test code = 8294330783) 5.7 g/dL 6.3-8.2 L ALBUMIN (test code = 8159051246) 3.8 g/dL 3.5-5 ALK PHOS (test code = 8461174346) 37 U/L 34-122 ALTv (test code = 1742-6) 23 U/L 5-50 AST(SGOT) (test code = 0447742522) 25 U/L 13-40 Lab Interpretation (test code = Abnormal 75346-5) [facility] CenterLipase Aidun5441-54-07 23:38:00 Test Item Value Reference Range Interpretation Comments LIPASE (test code = 6771589606) 62 U/L 0-220 Lab Interpretation (test code = Normal 52170-5) [facility]CBC WITH YPPJHQBMBYGA2741-26-24 23:29:00 Test Item Value Reference Range Interpretation Comments WBC (test code = See_Comment [Automated 8169-2) message] The sy stem which generated this result transmitted reference range : 4.20 - 10.70 10*3/?L. The reference range was not used to interpret this result as normal/abnormal . RBC (test code = See_Comment L [Automated 807-8) message] The sy stem which generated this [...] RDW-SD (test code = 47.5 fL 38.5-51.6 72001-7) RDW-CV (test code = 14.3 % 12.1-15.4 788-0) PLT (test code = See_Comment [Automated 777-3) message] The sy stem which generated this result transmitted reference range : 150 - 328 10*3/ ?L. The reference r meredith was not used to interpret this result as normal/abnormal . MPV (test code = 10.6 fL 9.8-13 40792-0) NRBC/100 WBC (test See_Comment [Automat ed code = 9771052536) message] The system which generated this result transmitted reference range : 0.0 - 10.0 /100 WBCs. The refer ence range was not u sed to interpret th is result as normal/abnormal . NRBC x10^3 (test code <0.01 See_Comment [Auto mated = 3757898006) message] The s ystem which generated this result transmitted reference range : 10*3/?L. The reference range was not used to interpret this result as normal/abnormal . GRAN MAT (NEUT) % 50.1 % (test code = 770-8) IMM GRAN % (test code 0.20 % = 0692637092) LYMPH % (test code = 34.7 % 736-9) MONO % (test code = 12.5 % 5905-5) EOS % (test code = 1.8 % 713-8) BASO % (test code = 0.7 % 706-2) GRAN MAT x10^3(ANC) 2.28 10*3/uL 1.99-6.95 (test code = 8543339732) IMM GRAN x10^3 (test <0.03 0-0.06 code = 4991491449) LYMPH x10^3 (test code 1.58 10*3/uL 1.09-3.23 = 731-0) MONO x10^3 (test code 0.57 10*3/uL 0.36-1.02 = 742-7) EOS x10^3 (test code = 0.08 10*3/uL 0.06-0.53 711-2) BASO x10^3 (test code 0.03 10*3/uL 0.01-0.09 = 704-7) Lab Interpretation Abnormal (test code = 80428-4) [facility] METABOLIC PANEL (NA, K, CL, CO2, GLUCOSE, BUN, CREATININE, CA)2020-01-26 18:34:00 Test Item Value Reference Range Interpretation Comments NA (test code = 138 mmol/L 135-145 6322218865) K (test code = 3.7 mmol/L 3.5-5 0369357605) CL (test code = 108 mmol/L 98-108 3608055389) CO2 TOTAL (test code = 25 mmol/L 23-31 1212103588) AGAP (test code = 2-16 2726992435) BUN (test code = 9 mg/dL 7-23 4862753905) GLUCOSE (test code = 107 mg/dL 70-110 6478182997) CREATININE (test code 0.96 mg/dL 0.6-1.25 = 9027832204) CALCIUM (test code = 8.7 mg/dL 8.6-10.6 3547395239) eGFR Calculation mL/min/1.73m2 (Non-) (test code = 6816303414) eGFR Calculation mL/min/1.73m2 () (test code = 9239741553) GILBERTO (test code = GILBERTO) Association of [...] or urine or abnormalities in imaging tests). [id number] 08:33:00 Test Item Value Reference Range Interpretation Comments MAGNESIUM (test code = 1.9 mg/dL 1.7-2.4 Sligh t hemolysis 8729843060) Lab Interpretation (test Normal code = 65812-2) [facility] [id number] 06:18:53 Redemonstration of marked gaseous distention of the transverse anddescending colon. RL: 460 AFC: [id number] Ordering physician: HELENE GRIFFIN INDICATION: Abdominal pain [...] distention of the transverse anddescending colon.RL: 460AFC: [id number] signed by Angeli Carrillo MD, PhD at 01/26/2020 1:18 AM[facility] [id number] 10:11:00 Test Item Value Reference Range Interpretation Comments PHOSPHORUS (test code = 8304590357) 3.9 mg/dL 2.5-5 Lab Interpretation (test code = Normal 37624-9) [facility]ID TEST[facility])2020-01-25 05:12:00 Test Item Value Reference Range Interpretation Comments SARS-CoV-2 Rapid ID NOW Not Detected Not Detected (test code = 73683-5) GILBERTO (test code = GILBERTO) ID NOW COVID-19 Assay is an isothermal nucleic acid amplification test intended for the qualitative detection of nucleic acid from SARS-CoV-2 viral RNA in nasopharyngeal (CABIN OUTFITTER) specimens. It is used under Emergency Use [...] indicated. Lab Interpretation Normal (test code = 55669-3) [facility] CenterL[facility] Whole [id number] 04:34:00 Test Item Value Reference Range Interpretation Comments LACTIC ACID (test code = 0.89 mmol/L 0.5-2.2 3782858462) [facility] CenterCT [facility] PELVIS W [id number] 02:47:02Impression: Marked distention and dilatation of the [...] wall, vasculature, and the bones are unremarkable. [facility], Radiant Results [...] bowel as well. Rectal tubedecompression may be considered.[facility] UcmlvtRnqeihovrd4386-43-17 01:51:00 Test Item Value Reference Range Interpretation Comments APPEARANCE (test code = Hazy Clear A 4921681033) COLOR (test code = Yellow Yellow 0331391468) PH (test code = 4.8-8.0 2629531930) SP GRAVITY (test code = 1.003-1.030 5660528722) GLU U QUAL (test code = Normal Normal 2290367875) BLOOD (test code = Negative Negative 5799308252) KETONES (test code = Negative Negative 7825924129) PROTEIN (test code = Negative Negative 2887-8) UROBILIN (test code = Normal Normal 6001677973) BILIRUBIN (test code = Negative Negative 0277983491) NITRITE (test code = Negative Negative 5882065826) LEUK ROGER (test code = Negative Negative 1903860973) RBC/HPF (test code = See_Comment H [Autom ated message] 8845165253) The system [employer] generated this result transmitted ref erence range: 0 - 3 HP F. The reference range was not used to int erpret this result as normal/abnormal . WBC/HPF (test code = See_Comment [Autom ated message] 4559579684) The system [employer] generated this result transmitted ref erence range: 0 - 5 HP F. The reference range was not used to int erpret this result as normal/abnormal . BACTERIA (test code = Negative Negative 9981043239) SQ EPITH (test code = <1 See_Comment [Auto mated message] 0203940529) The system [employer] generated this result transmitted ref erence range: <=2 HPF. The reference range was not used to int erpret this result as normal/abnormal . CA OXALATE (test code = See_Comment H [Au tomated message] 3745640261) The system [employer] generated this result transmitted ref erence range: <=1 HPF. The reference range was not used to int erpret this result as normal/abnormal . Lab Interpretation (test Abnormal code = 06988-7) [facility] (NA, K, CL, CO2, GLUCOSE, BUN, CREATININE, CA)2020-01-25 01:01:00 Test Item Value Reference Range Interpretation Comments NA (test code = 139 mmol/L 135-145 9374841974) K (test code = 4.6 mmol/L 3.5-5 Slight hemoly sis 0621789163) CL (test code = 107 mmol/L 98-108 8771319573) CO2 TOTAL (test 26 mmol/L 23-31 code = 6220747889) AGAP (test code = 2-16 8896559476) BUN (test code = 23 mg/dL 7-23 Slight hemo lysis 0460422297) GLUCOSE (test code 94 mg/dL 70-110 = 7628458328) CREATININE (test 1.13 mg/dL 0.6-1.25 code = 8997305641) CALCIUM (test code 8.9 mg/dL 8.6-10.6 = 1145916255) eGFR Calculation mL/min/1.73m2 (Non-) (test code = 4474328564) eGFR Calculation mL/min/1.73m2 () (test code = 7799989110) GILBERTO (test code = Association of GILBERTO) [...] or urine or abnormalities in imaging tests). [facility] (ALB, T.PRO, BILI T, BU/BC, ALT, AST, ALK PHOS)2020-01-25 01:01:00 Test Item Value Reference Range Interpretation Comments TOTAL BILI (test code = 3607587296) 0.7 mg/dL 0.1-1.1 BILI UNCON (test code = 6042709653) 0.6 mg/dL 0.1-1.1 BILI CONJ (test code = 8928960369) 0.0 mg/dL 0-0.3 T PROTEIN (test code = 7428638826) 6.2 g/dL 6.3-8.2 L ALBUMIN (test code = 4323942664) 4.1 g/dL 3.5-5 ALK PHOS (test code = 1561855230) 46 U/L 34-122 ALTv (test code = 1742-6) 27 U/L 5-50 AST(SGOT) (test code = 8217463085) 31 U/L 13-40 Lab Interpretation (test code = Abnormal 87492-6) [facility] CenterLipase [id number] 01:01:00 Test Item Value Reference Range Interpretation Comments LIPASE (test code = 1096513864) 246 U/L 0-220 H Lab Interpretation (test code = Abnormal 67444-5) [facility] CenterCB WITH [id number] 00:49:00 Test Item Value Reference Range Interpretation Comments WBC (test code = See_Comment [Automated 5190-2) message] The sy stem which generated this result transmitted reference range : 4.20 - 10.70 10*3/?L. The reference range was not used to interpret this result as normal/abnormal . RBC (test code = See_Comment L [Automated 619-8) message] The sy stem which generated this [...] RDW-SD (test code = 46.8 fL 38.5-51.6 27922-8) RDW-CV (test code = 14.2 % 12.1-15.4 788-0) PLT (test code = See_Comment [Automated 777-3) message] The sy stem which generated this result transmitted reference range : 150 - 328 10*3/ ?L. The reference r meredith was not used to interpret this result as normal/abnormal . MPV (test code = 10.7 fL 9.8-13 51136-4) NRBC/100 WBC (test See_Comment [Automat ed code = 4551447819) message] The system which generated this result transmitted reference range : 0.0 - 10.0 /100 WBCs. The refer ence range was not u sed to interpret th is result as normal/abnormal . NRBC x10^3 (test code <0.01 See_Comment [Auto mated = 0187449545) message] The s ystem which generated this result transmitted reference range : 10*3/?L. The reference range was not used to interpret this result as normal/abnormal . GRAN MAT (NEUT) % 56.9 % (test code = 770-8) IMM GRAN % (test code 0.20 % = 6870967330) LYMPH % (test code = 31.2 % 736-9) MONO % (test code = 9.7 % 5905-5) EOS % (test code = 1.6 % 713-8) BASO % (test code = 0.4 % 706-2) GRAN MAT x10^3(ANC) 2.86 10*3/uL 1.99-6.95 (test code = 8946571178) IMM GRAN x10^3 (test <0.03 0-0.06 code = 7938159762) LYMPH x10^3 (test code 1.57 10*3/uL 1.09-3.23 = 731-0) MONO x10^3 (test code 0.49 10*3/uL 0.36-1.02 = 742-7) EOS x10^3 (test code = 0.08 10*3/uL 0.06-0.53 711-2) BASO x10^3 (test code <0.03 0.01-0.09 = 704-7) Lab Interpretation Abnormal (test code = 56192-2) [facility] 1 [id number] 07:32:00 Name: DORA JOSEPH Boissevain : 1970 Age/S: 49 / M [address] Unit #: [id number] Loc: [place] [address] Phys: Jay Mayo MD Acct: [id number] Dis Date: Status: ADM IN PHONE #: [phone] Exam Date: 01/10/2020 0658 FAX #: Reason: follow up colonic ileus EXAMS:CPT: [id number] XR ABDOMEN 1 V 20077 Fluoro Time: DAP (Gy m2): Air Kerma [...] PAGE 1 Signed Report Name: DORA JOSEPH Boissevain : 1970 Age/S: 49 / M [address] Unit #: [id number] Loc: [place] [address] Phys: Jay Mayo MD Acct: [id number] Dis Date: Status: ADM IN PHONE #: [phone] Exam Date: 01/10/2020 0658 FAX #: Reason: follow up colonic ileus EXAMS: CPT: [id number] XR ABDOMEN 1 V 19411 Fluoro Time: DAP (Gy m2): Air Kerma (mGy): <Continued> Technologist: Bakari De Leon RT(R)(CT) Trnscb Date/Time: 01/10/2020 (0732) Donna5 Orig Print D/T: S: 01/10/2020 (0736) PAGE 2 Signed ReportCOMPREHENSIVE METABOLIC [id number] 05:56:00 Test Item Value Reference Range Interpretation [...] TOTAL (test code = ALKP) CBC W/AUTO [id number] 05:42:00 Test Item Value Reference Range Interpretation [...] = NO DIFF/SCN CRITERIA MDIFF) BASIC METABOLIC [id number] 06:59:00 Test Item Value Reference Range Interpretation [...] code = CA) 8.5 MG/DL 8.5-10.1 N [id number] 06:59:00 Test Item Value Reference Range Interpretation Comments MAGNESIUM (test code = MAG) 2.2 MG/DL 1.8-2.4 PROTHROMBIN [id number] 06:39:00 Test Item Value Reference Range Interpretation Comments PT PATIENT (test code = PTP) 13.1 SECONDS 9.3-12.9 H INTERNATIONAL NORMAL RATIO 1.16 INR Unit 0.8-1.2 N (test code = INR) CBC W/AUTO [id number] 06:22:00 Test Item Value Reference Range Interpretation [...] DIFF/SCN CRITERIA MDIFF) - XR ABDOMEN 1 [id number] 05:39:00 Name: DORA JOSEPH Boissevain : 1970 Age/S: 49 / M [address] Unit #: [id number] Loc: [place] [address] 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 Acct: [id number] Dis Date: Status: ADM IN PHONE #: [phone] Exam Date: 01/09/2020522 FAX #: Reason: colonic ileus/obstruction EXAMS: CPT: [id number] XR ABDOMEN 1 V 54848 Fluoro Time: DAP (Gy m2): Air Kerma [...] PAGE 1 Signed Report Name: DORA JOSEPH Boissevain : 1970 Age/S: 49 / M [address] [address] Unit #: [id number] Loc: [place] [address] 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 Acct: [id number] Dis Date: Status: ADM IN PHONE #: [phone] Exam Date: 01/09/2020522 FAX #: Reason: colonic ileus/obstruction EXAMS: CPT: [id number] XR ABDOMEN 1 V 14260 Fluoro Time: DAP (Gy m2): Air Kerma (mGy): <Continued> Technologist: Carrie Barnett, RT(R)(CT) Trnscb Date/Time: 01/09/2020 (0539) tDARWINR.FC Orig Print D/T: S: 01/09/2020 (0570) PAGE 2 Signed ReportCoronavirus 2018 nCoV Ewecadr0618-10-98 22:38:00 Test Item Value Reference Range Interpretation Comments Coronavirus 2019 nCoV Bedside (test Negative Negative code = [id number]) Emergent procedure? YESCoronavirus 2018 nCoV Kbrzhht8470-67-25 22:38:00 Test Item Value Reference Range Interpretation Comments Coronavirus 2019 nCoV Bedside (test Negative Negative code = XDHYW70MQXFD) Emergent procedure? YESBASIC METABOLIC [id number] 18:42:00 Test Item Value Reference Range Interpretation [...] CA) 8.5 MG/DL 8.5-10.1 N CBC W/AUTO [id number] 10:50:00 Test Item Value Reference Range Interpretation [...] = NO DIFF/SCN CRITERIA MDIFF) COMPREHENSIVE METABOLIC [id number] 10:46:00 Test Item Value Reference Range Interpretation [...] 50-136 N TOTAL (test code = ALKP) [id number] 10:46:00 Test Item Value Reference Range Interpretation Comments MAGNESIUM (test code = MAG) 2.6 MG/DL 1.8-2.4 H COMPREHENSIVE METABOLIC [id number] 10:34:00 Test Item Value Reference Range Interpretation [...] TOTAL (test Unit/L 50-136 code = ALKP) [id number] 10:34:00 Test Item Value Reference Range Interpretation Comments MAGNESIUM (test code = MAG) MG/DL 1.8-2.4 - XR ABDOMEN 1 [id number] 08:28:00 Name: DORA JOSEPH Boissevain : 1970 Age/S: 49 / M [address] Unit #: [id number] Loc: [place] [address] Phys: Yas Edwards MD Acct: [id number] Dis Date: Status: ADM IN PHONE #: [phone] Exam Date: 01/08/2020509 FAX #: Reason: ileus EXAMS: CPT: [id number] XR ABDOMEN 1V 29818 Fluoro Time: DAP (Gy m2): Air Kerma [...] signed by: Bernardo Ochoa M.D. CC: Mark Peera MD; Yas Edwards MD PAGE 1 Signed Report Name: DORA JOSEPH Boissevain : 1970 Age/S: 49 / M [address] Unit #: [id number] Loc: [place] [address] Phys: Yas Edwards MD Acct: [id number] Dis Date: Status: ADM IN PHONE #: [phone] Exam Date: 01/08/2020509 FAX #: Reason: ileus EXAMS: CPT: [id number] XR ABDOMEN 1 V 09470 Fluoro Time: DAP (Gy m2): Air Kerma (mGy): <Continued> Technologist: Carrie Barnett, RT(R)(CT); ... Trnscb Date/Time: 01/08/2020 (827) t.SDR.JTM Orig Print D/T: S: 01/08/2020 (0372) PAGE 2 Signed ReportCOMPREHENSIVE METABOLIC [id number] 07:08:00 Test Item Value Reference Range Interpretation [...] 50-136 L TOTAL (test code = ALKP) [id number] 07:08:00 Test Item Value Reference Range Interpretation Comments MAGNESIUM (test code = MAG) 1.3 MG/DL 1.8-2.4 L COMPREHENSIVE METABOLIC [id number] 05:16:00 Test Item Value Reference Range Interpretation [...] 50-136 L TOTAL (test code = ALKP) [id number] 05:16:00 Test Item Value Reference Range Interpretation Comments MAGNESIUM (test code = MAG) 1.3 MG/DL 1.8-2.4 L CBC W/AUTO [id number] 05:02:00 Test Item Value Reference Range Interpretation [...] (test code = NO DIFF/SCN CRITERIA MDIFF) [id number] 16:51:00 Test Item Value Reference Range Interpretation Comments MAGNESIUM (test code = MAG) 2.3 MG/DL 1.8-2.4 N FE W/TOTAL IRON BINDING CAP.2020-01-07 16:51:00 Test Item Value Reference Range Interpretation Comments SERUM IRON (test code = IRON) 38 mcG/DL 65-175 L TOTAL IRON BINDING CAPACITY (test 322 mcG/DL 250-450 N code = TIBC) IRON SATURATION (test code = 12 % calc 12-57 N FESAT) [id number] 16:51:00 Test Item Value Reference Range Interpretation Comments FERRITIN (test code = AARON) 17.6 NG/ML 5.0-323.0 N CALCIUM [id number] 16:50:00 Test Item Value Reference Range Interpretation Comments CALCIUM IONIZED (test code = NAVEED) 1.12 mmol/L 1.12-1.32 N - XR ABDOMEN 1 [id number] 10:29:00 Name: DORA JOSEPH Boissevain : 1970 Age/S: 49 / M [address] Unit #: [id number] Loc: [place] [address] Phys: Verona Frost PA-C Acct: [id number] Dis Date: Status: ADM IN PHONE #: [phone] Exam Date: 01/07/2020711 FAX #: Reason: reassess SBO EXAMS: CPT: [id number] XR ABDOMEN 1 V 68209 Fluoro Time: DAP (Gy m2): Air Kerma [...] PAGE 1 Signed Report Name: DORA JOSEPH Boissevain : 1970 Age/S: 49 / M [address] [address] Unit #: [id number] Loc: [place] [address] Phys: Verona Frost PA-C Acct: [id number] Dis Date: Status: ADM IN PHONE #: [phone] Exam Date: 01/07/2020 0712 FAX #: Reason: reassess SBO EXAMS: CPT: [id number] XR ABDOMEN 1 V 38409 Fluoro Time: DAP (Gy m2): Air Kerma (mGy): <Continued> Technologist: Bakari De Leon RT(R)(CT) Trnscb Date/Time: 01/07/2020 (1764) tDARWINR.AGV Orig Print D/T: S: 01/07/2020 (4211) PAGE 2 Signed ReportBASIC METABOLIC PANEL 2020-01-07 [...] CA) 5.4 MG/DL 8.5-10.1 LL CBC W/AUTO [id number] 06:49:00 Test Item Value Reference Range Interpretation [...] = NO DIFF/SCN CRITERIA MDIFF) COMPREHENSIVE METABOLIC [id number] 06:10:00 Test Item Value Reference Range Interpretation [...] TOTAL (test code = ALKP) CBC W/AUTO [id number] 05:52:00 Test Item Value Reference Range Interpretation [...] DIFF/SCN CRITERIA MDIFF) - XR ABDOMEN 1 [id number] 01:30:00 Name: DORA JOSEPH Boissevain : 1970 Age/S: 49 / M [address] [address] Unit #: [id number] Loc: [place] [address] Phys: Ted Coleman NP Acct: [id number] Dis Date: Status: ADM IN PHONE #: [phone] Exam Date: 01/06/2020 0100 FAX #: Reason: NG Tube Placement Verification EXAMS: CPT: [id number] XR ABDOMEN 1 V 28631 Fluoro Time: DAP (Gy m2): Air Kerma [...] PAGE 1 Signed Report Name: DORA JOSEPH Boissevain : 1970 Age/S: 49 / M [address] Unit #: [id number] Loc: [place] [address] Phys: Ted Coleman NP Acct:[id number] Dis Date: Status: ADM IN PHONE #: [phone] Exam Date: 01/06/2020 0100 FAX #: Reason: NG Tube Placement Verification EXAMS: CPT: [id number] XR ABDOMEN 1 V 50295 Fluoro Time: DAP (Gy m2): Air Kerma (mGy): <Continued> Technologist: Amberly Borrero RT(R) Trnazb Date/Time: 01/06/2020 (129) Garett Orig Print D/T: S: 01/06/2020 (0137) PAGE 2 Signed Report- CT ABD PELVIS W/O [id number] 19:42:00 [place]: St: REG -- Name: DORA JOSEPH [facility] : 1970 Age/S: 49/M [address] [facility] Unit:[id number] Loc: [place], [place] Phys: [place] [address] Acct: [id number] Dis Date: Status: REG ER PHONE #: [phone] Exam Date: 12/13/20191924 FAX #: [phone] Reason: pain EXAMS: CPT CODE: [id number] CT ABD PELVIS W/O CONT 39276 Examination: CT scan abdomen and pelvis without contrast. Location code: [facility]. TECHNIQUE: Multiple axial images of the abdomen [...] ALMANZAR Trnscrd Dt/Tm: 12/13/2019 (1941) GarettVR5 Orig P rint D/T: S: 12/13/2019 (5 [...] code = CA) 8.6 mg/dl 8.0-10.5 N [id number] 18:49:00 Test Item Value Reference Range Interpretation Comments LIPASE (test code = LIP) 97 Units/L 65.0-230.0 N CBC W/AUTO [id number] 18:38:00 Test Item Value Reference Range Interpretation [...] K/mm3 0.0-0.2 N - XR CHEST 1 [id number] 18:36:00 [place]: EM St: PRE -- Name: DORA JOSEPH [facility] : 1970 Age/S: 49/M [address] [place] [address] [facility] [id number] Loc: [place], [place] Phys: [place] [address] Acct: [id number] Dis Date: Status: PRE ER PHONE #: [phone] Exam Date: 12/13/20191821 FAX #: [phone] Reason: SOB EXAMS: CPT CODE: [id number] XR CHEST 1 V 53198 Examination: One view chest x-ray Location code: [...] : By: GarettVR5 PAGE 1 Signed Report [facility]: St: PRE ----- Name: DORA JOSEPH [facility] : 1970 Age/S: 49/M [address] [facility] #: [id number] Loc: [place], [place]: [place] [address] Acct: [id number] Dis Date: Status: PRE ER PHONE #: [phone] Exam Date: 12/13/2019 1822 FAX #: [phone] Reason: SOB EXAMS: CPT CODE: [id number] XR CHEST 1 V 56970 (Continued) Orig Print D/T: S: 12/13/2019 (1839) PAGE 2 Signed ReportCBC W/PLT COUNT & AUTO [id number] 08:02:00 Test Item Value Reference Range Interpretation [...] Received comment: User comments: Slide comments:BASIC METABOLIC [id number] 07:34:00 Test Item Value Reference Range Interpretation [...] S NOT APPLICABLE FOR DIALYSIS PATIEN TS. [id number] 07:26:00 Test Item Value Reference Range Interpretation Comments PHOSPHORUS (BEAKER) (test code = 3.1 mg/dL 2.3-4.7 604) [id number] 07:26:00 Test Item Value Reference Range Interpretation Comments MAGNESIUM (BEAKER) (test code = 1.6 mg/dL 1.6-2.6 627) RAD, ABDOMEN/KUB, 1 VIEW [id number] 07:04:00Reason for exam:->ileusFINAL REPORT Abdomen , one [...] Verified Date/Time: 04/03/2019 07:04:46 Reading Location: [facility] C0[facility] Consult Reading Room BASIC METABOLIC [id number] 06:47:00 Test Item Value Reference Range Interpretation [...] code = 413) URINALYSIS WITH MICROSCOPIC IF [id number] 22:01:00 Test Item Value Reference Range Interpretation [...] 463) SOURCE(BEAKER) (test code = 2795) URINALYSIS [id number] 22:01:00 Test Item Value Reference Range Interpretation Comments RBC UA (BEAKER) (test code = 519) 18 /HPF WBC UA (BEAKER) (test code = 520) 1 /HPF CALCIUM OXALATE CRYSTALS (BEAKER) Occasional (test code = 518) [id number] 05:49:00 Test Item Value Reference Range Interpretation Comments PHOSPHORUS (BEAKER) (test code = 2.5 mg/dL 2.3-4.7 604) [id number] 05:49:00 Test Item Value Reference Range Interpretation Comments MAGNESIUM (BEAKER) (test code = 1.7 mg/dL 1.6-2.6 627) BASIC METABOLIC [id number] 05:49:00 Test Item Value Reference Range Interpretation [...] (BEAKER) (test code = 413) BASIC METABOLIC [id number] 06:19:00 Test Item Value Reference Range Interpretation [...] S NOT APPLICABLE FOR DIALYSIS PATIEN TS. [id number] 06:10:00 Test Item Value Reference Range Interpretation Comments MAGNESIUM (BEAKER) 1.8 mg/dL 1.6-2.6 Specimen slightly (test code = 627) hemolyzed [id number] 06:10:00 Test Item Value Reference Range Interpretation [...] (BEAKER) (test code = 413) BASIC METABOLIC [id number] 04:57:00 Test Item Value Reference Range Interpretation [...] S NOT APPLICABLE FOR DIALYSIS PATIEN TS. [id number] 04:55:00 Test Item Value Reference Range Interpretation Comments PHOSPHORUS (BEAKER) (test code = 2.6 mg/dL 2.3-4.7 604) [id number] 04:55:00 Test Item Value Reference Range Interpretation Comments MAGNESIUM (BEAKER) (test code = 1.8 mg/dL 1.6-2.6 627) CT, [id number] 14:16:00FINAL REPORT TECHNIQUE: CT of the abdomen [...] Pope MDReport Verified Date/Time: 03/29/2019 14:16:01Reading Location: [facility] B1 C013Y CT Body Reading Room , ABDOMEN/KUB, 1 VIEW [id number] 10:23:00Reason for exam:->evaluate ileusFINAL REPORT Technique: Supine [...] MDReport Verified Date/Time: 03/29/2019 10:23:29 Reading Location: [facility] Reading Room CBC (HEMOGRAM ONLY)2019-03-29 08:10:00 Test [...] WBC 0-0 (BEAKER) (test code = 413) [id number] 06:20:00 Test Item Value Reference Range Interpretation Comments PHOSPHORUS (BEAKER) (test code = 2.6 mg/dL 2.3-4.7 604) [id number] 06:20:00 Test Item Value Reference Range Interpretation Comments MAGNESIUM (BEAKER) (test code = 2.0 mg/dL 1.6-2.6 627) BASIC METABOLIC [id number] 06:20:00 Test Item Value Reference Range Interpretation [...] TS. RAD, ABDOMEN SERIES W/ UPRIGHT PA [id number] 22:18:00Reason for exam:- >eval ileusFINAL REPORT CLINICAL [...] Date/Time: 03/28/2019 22:18:50 RAD, ABDOMEN/KUB, 1 VIEW [id number] 11:23:00Reason for exam:->abdominal distensionShould this be performed [...] Ontiveros Verified Date/Time: 03/28/2019 11:23:34 Reading Location: [facility] Radiology Reading Room TISSUE [id number] 09:00:00Surgical Pathology Report Case: [id number] Authorizing Provider: Graciela Garrison MD Collected: 03/25/2019 1133 Ordering Location: [facility] PERIOPERATIVE Received: 03/25/2019 1527 SERVICES [...] FOR MALIGNANCY Signing Pathologist Direct Phone Line: [phone] signed by Sindi Celaya MD on 03/28/2019 at 9:00 [id number] and postop diagnosis: ileostomy statusA. End ileostomy; [...] nodes are not identified in the mesentery. Ironing Machine Operator sections are submitted. Section code: A, lead customer service representative section of each end of first mentioned segment of small bowel; A2, lead customer service representative of first mentioned segment of small bowel mucosa; A3, area of hemorrhagic mesentery of second mentioned segment of mucosa; A4, lead customer service representative of hemorrhagic mucosa at open end of second portion of small bowel; A5, lead customer service representative of stapled margin from secondmentioned [...] 0.2 cm. No gross lesions are identified. Ironing Machine Operator sections are submitted. Section code: B1, proximal margin en face and tip; B2, lead customer service representative cross section. CG/pl Performed.[id number] 06:23:00 Test Item Value Reference Range Interpretation Comments PHOSPHORUS (BEAKER) (test code = 2.7 mg/dL 2.3-4.7 604) [id number] 06:23:00 Test Item Value Reference Range Interpretation Comments MAGNESIUM (BEAKER) (test code = 1.9 mg/dL 1.6-2.6 627) BASIC METABOLIC [id number] 06:23:00 Test Item Value Reference Range Interpretation [...] S NOT APPLICABLE FOR DIALYSIS PATIEN TS. [id number] 08:20:00 Test Item Value Reference Range Interpretation Comments PHOSPHORUS (BEAKER) (test code = 2.6 mg/dL 2.3-4.7 604) [id number] 08:20:00 Test Item Value Reference Range Interpretation Comments MAGNESIUM (BEAKER) (test code = 1.8 mg/dL 1.6-2.6 627) BASIC METABOLIC [id number] 08:20:00 Test Item Value Reference Range Interpretation [...] S NOT APPLICABLE FOR DIALYSIS PATIEN TS. [id number] 06:06:00 Test Item Value Reference Range Interpretation Comments PHOSPHORUS (BEAKER) (test code = 4.1 mg/dL 2.3-4.7 604) [id number] 06:06:00 Test Item Value Reference Range Interpretation Comments MAGNESIUM (BEAKER) (test code = 1.8 mg/dL 1.6-2.6 627) BASIC METABOLIC [id number] 06:06:00 Test Item Value Reference Range Interpretation [...] S NOT APPLICABLE FOR DIALYSIS PATIEN TS. [id number] 06:03:00 Test Item Value Reference Range Interpretation Comments PHOSPHORUS (BEAKER) (test code = 4.2 mg/dL 2.3-4.7 604) [id number] 06:03:00 Test Item Value Reference Range Interpretation Comments MAGNESIUM (BEAKER) (test code = 2.0 mg/dL 1.6-2.6 627) BASIC METABOLIC [id number] 06:03:00 Test Item Value Reference Range Interpretation [...] WBC 0-0 (BEAKER) (test code = 413) [id number] 05:52:00 Test Item Value Reference Range Interpretation Comments PHOSPHORUS (BEAKER) (test code = 4.2 mg/dL 2.3-4.7 604) [id number] 05:52:00 Test Item Value Reference Range Interpretation Comments MAGNESIUM (BEAKER) (test code = 1.9 mg/dL 1.6-2.6 627) BASIC METABOLIC [id number] 05:52:00 Test Item Value Reference Range Interpretation [...] S NOT APPLICABLE FOR DIALYSIS PATIEN TS. [id number] 06:51:00 Test Item Value Reference Range Interpretation Comments PHOSPHORUS (BEAKER) (test code = 4.3 mg/dL 2.3-4.7 604) [id number] 06:51:00 Test Item Value Reference Range Interpretation Comments MAGNESIUM (BEAKER) (test code = 2.0 mg/dL 1.6-2.6 627) BASIC METABOLIC [id number] 06:51:00 Test Item Value Reference Range Interpretation [...] 0-0 (BEAKER) (test code = 413) TISSUE [id number] 11:50:00Surgical Pathology Report Case: [id number] Authorizing Provider: Mela Larson MD Collected: 03/18/2019 1827 Ordering Location: [facility] Received: 03/21/2019 0823 SERVICES Pathologist: Jordan Celaya MD Specimen: Small Bowel, NOS A. SMALL BOWEL, ILEOSTOMY PROLAPSE, TAKEDOWN:- ANASTOMOSIS SITE WITH ACTIVE CHRONIC INFLAMMATION AND FOCAL ISCHEMIC CHANGES - MUCOSAL RESECTION MARGINS, NEGATIVE FOR MALIGNANCY - ONE BENIGN LYMPH NODE (0/1) - NEGATIVE FOR DYSPLASIA OR MALIGNANCY Signing Pathologist Direct Phone Line: [phone] signed by Jordan Celaya MD on 03/22/2019 at 11:50 [id number] of ileostomyReceived in a container labeled "small [...] 0.5 to 1.2 cm in greatest dimension. Ironing Machine Operator sections are submitted as follows: A1-A2, mucosal resection margin, en face; A3-A6, lead customer service representative sections of the possible ostomy stump; A7-A11, serial lead customer service representative sections from mucosal resection margin to the possible ostomy stump; A12, two lymph nodes. TH/plPerformed.[id number] 06:58:00 Test Item Value Reference Range Interpretation Comments PHOSPHORUS (BEAKER) (test code = 3.8 mg/dL 2.3-4.7 604) [id number] 06:58:00 Test Item Value Reference Range Interpretation Comments MAGNESIUM (BEAKER) (test code = 2.0 mg/dL 1.6-2.6 627) BASIC METABOLIC [id number] 06:58:00 Test Item Value Reference Range Interpretation [...] PATIEN TS. CBC W/PLT COUNT & AUTO [id number] 05:42:00 Test Item Value Reference Range Interpretation [...] PERCENT (BEAKER) (test code = 2801) [place], [id number] 17:42:00Reason for exam:->evaluate for colon stricture as [...] Verified Date/Time: 03/21/2019 17:42:21 Reading Location: [address] Ortho Consult Reading Room [id number] 03:58:00 Test Item Value Reference Range Interpretation Comments PHOSPHORUS (BEAKER) (test code = 3.0 mg/dL 2.3-4.7 604) [id number] 03:58:00 Test Item Value Reference Range Interpretation Comments MAGNESIUM (BEAKER) (test code = 2.0 mg/dL 1.6-2.6 627) BASIC METABOLIC [id number] 03:58:00 Test Item Value Reference Range Interpretation [...] PATIEN TS. CBC W/PLT COUNT & AUTO [id number] 03:20:00 Test Item Value Reference Range Interpretation [...] (BEAKER) (test code = 2801) BASIC METABOLIC [id number] 06:26:00 Test Item Value Reference Range Interpretation [...] S NOT APPLICABLE FOR DIALYSIS PATIEN TS. [id number] 06:05:00 Test Item Value Reference Range Interpretation Comments PHOSPHORUS (BEAKER) (test code = 2.2 mg/dL 2.3-4.7 L 604) [id number] 06:05:00 Test Item Value Reference Range Interpretation Comments MAGNESIUM (BEAKER) (test code = 2.0 mg/dL 1.6-2.6 627) CBC W/PLT COUNT & AUTO [id number] 05:25:00 Test Item Value Reference Range Interpretation [...] 0-1 PERCENT (BEAKER) (test code = 2801) [id number] 04:31:00 Test Item Value Reference Range Interpretation Comments PHOSPHORUS (BEAKER) (test code = 3.7 mg/dL 2.3-4.7 604) [id number] 04:31:00 Test Item Value Reference Range Interpretation Comments MAGNESIUM (BEAKER) (test code = 1.9 mg/dL 1.6-2.6 627) BASIC METABOLIC [id number] 04:31:00 Test Item Value Reference Range Interpretation [...] PATIEN TS. CBC W/PLT COUNT & AUTO [id number] 04:15:00 Test Item Value Reference Range Interpretation [...] 0-1 PERCENT (BEAKER) (test code = 2801) [id number] 06:41:00 Test Item Value Reference Range Interpretation Comments PHOSPHORUS (BEAKER) (test code = 3.1 mg/dL 2.3-4.7 604) [id number] 06:41:00 Test Item Value Reference Range Interpretation Comments MAGNESIUM (BEAKER) (test code = 1.9 mg/dL 1.6-2.6 627) BASIC METABOLIC [id number] 06:41:00 Test Item Value Reference Range Interpretation [...] PATIEN TS. CBC W/PLT COUNT & AUTO [id number] 06:36:00 Test Item Value Reference Range Interpretation [...] PERCENT (BEAKER) (test code = 2801) CT, [id number] 17:04:00No PO contrastFINAL REPORT ABDOMINAL AND PELVIS [...] Verified Date/Time: 03/17/2019 17:04:19 Reading Location: [facility] C013Y CT Body Reading Room XR ABDOMEN 2 [id number] 09:03:45XR ABDOMEN 2 VIEWSLOCATION: [id number]: Colstomy ProlapseCOMPARISON: Chest radiograph 04/15/2017, CT of [...] Nonspecific, nonobstructive bowel gas pattern.XR CHEST 1 [id number] 11:32:15EXAM: CHEST ONE VIEWINDICATION: Chest painCOMPARISON: None availableTECHNIQUE: AP view of the chest.FINDINGS: The cardiomediastinal silhouette is normal. The lungs are clearbilaterally. No pneumothoraxor pleural effusion is identified. Theosseous structures are unremarkable.IMPRESSION: No acute cardiopulmonary process.LOCATION: [id number] Type and [id number] 21:21:00 Test Item Value Reference Range Interpretation Comments ABO type (test code = ABO) O Rh Type (test code = RH) Positive Comprehensive Metabolic [id number] 20:36:00 Test Item Value Reference Range Interpretation [...] the National Kidney Foundation,http ://nkd ep.nih.gov Alcohol/Ethanol, [id number] 20:36:00 Test Item Value Reference Range Interpretation Comments Alcohol, Ethyl <0.01 g/dL 0.00-0.01 N Intoxicated 0 .080 g/dL (test code = ETOH) or more Prothrombin [id number] 20:00:00 Test Item Value Reference Range Interpretation Comments PT (test code = PT) 10.10 seconds 9.78-13.35 N INR (test code = INR) 0.88 Ratio 0.6-1.2 N Partial Thromboplastin [id number] 20:00:00 Test Item Value Reference Range Interpretation Comments aPTT (test code = PTT) 31.50 seconds 24.39-37.25 N CBC with [id number] 19:50:00 Test Item Value Reference Range Interpretation [...] code = ALYMPH) 2.2 K/cumm 0.5-4.6 N [place] Abs (test code = AMONO) 0.4 K/cumm 0.0-1.2 N Eos Abs (test code = AEOS) 0.17 K/cumm 0.00-0.74 N Baso Abs (test code = ABASO) 0.0 K/cumm 0.00-0.21 N 73043& PELVIS W/O [id number] 17:36:28CT ABDOMEN AND PELVIS WITHOUT CONTRAST.CLINICAL HISTORY: [...]
[2022-07-24 11:07] LABS: Bilirubin Total 0.6 mg/dL (0.2-1.0); Potassium 4.1 mmol/L (3.5-5.1); Protein, Total 7.5 g/dL (6.4-8.2)
--- NOTE | 2022-07-24 11:38 | ER ---
Nurse's Notes [facility] Name: Rico Mcneill Age: 52 yrs Sex: Male : 1970 Arrival Date: 07/24/2022 Time: 10:15 Bed 14 Private MD: Diagnosis: Dehydration;Hypo-osmolality and hyponatremia;Abdominal pain, Generalized;Colostomy complication, unspecified;Acute kidney failure, unspecified-on chronic Presentation: 07/24 10:21 Chief complaint: Patient states: VILLAGOMEZ started last night at 10 PM. Abd cramping started ll1 this morning. Currently homeless. Chief complaint: EMS states: BP 92/64, vitals otherwise stable. Coronavirus screen: Vaccine status: Patient reports being unvaccinated. Client denies travel out of the [place] in the last 14 days. At this time, the client does not indicate any symptoms associated with coronavirus-19. Ebola Screen: Patient denies travel to an Ebola-affected area in the 21 days before illness onset. Initial Sepsis Screen: Does the patient meet any 2 criteria? No. Patient's initial sepsis screen is negative. Does the patient have a suspected source of infection? Yes: Acute abdominal pain. Risk Assessment: Do you want to hurt yourself or someone else? Patient reports no desire to harm self or others. Onset of symptoms was July 23, 2022. 10:21 Method Of Arrival: EMS ll1 10:21 Acuity: OCTAVIO 3 ll1 Triage Assessment: 10:22 General: Appears uncomfortable, Behavior is cooperative, appropriate for age. Pain: ll1 Complains of pain in abdomen Pain currently is 6 out of 10 on a pain scale. Quality of pain is described as crampy. Neuro: Reports headache. GI: Reports lower abdominal pain, upper abdominal pain, cramping. Historical: - Allergies: 10:16 NKDA; ll1 - PMHx: 10:16 ileostomy; ll1 - PSHx: 10:16 Small bowel resection with ileostomy; ll1 - Immunization history:: Client reports having NOT received the Covid vaccine. - Social history:: Smoking status: Patient reports use of chewing tobacco. - Family history:: not pertinent. Screenin:23 Abuse screen: Denies threats or abuse. Nutritional screening: No deficits noted. ll1 Tuberculosis screening: No symptoms or risk factors identified. Fall Risk IV access (20 points). Total Stanley Fall Scale indicates No Risk (0-24 pts). Assessment: 11:15 Reassessment: No changes from previously documented assessment. to x-ray via wheelchair.ll1 12:15 Reassessment: No changes from previously documented assessment. Patient and/or family ll1 updated on plan of care and expected duration. Pain level reassessed. Patient is alert, oriented x 3, equal unlabored respirations, skin warm/dry/pink. 13:15 Reassessment: No changes from previously documented assessment. Patient and/or family ll1 updated on plan of care and expected duration. Pain level reassessed. Patient is alert, oriented x 3, equal unlabored respirations, skin warm/dry/pink. Vital Signs: 10:21 BP 101 / 69; Pulse 89; Resp 16; Temp 97.8; Pulse Ox 100% ; Weight 65.77 kg; Height 6 ll1 ft. 1 in. (185.42 cm); Pain 8/10; 13:35 BP 127 / 84; Pulse 86; Resp 16; Pulse Ox 100% ; ll1 10:21 Body Mass Index 19.13 (65.77 kg, 185.42 cm) ll1 Rustam Coma Score: 11:34 Eye Response: spontaneous(4). Verbal Response: oriented(5). Motor Response: obeys diego commands(6). Total: 15. ED Course: 10:15 Patient arrived in ED. iw 10:15 Beth Ricci, RN is Primary Nurse. ll1 10:15 Arm band placed on Patient placed in an exam room, on a stretcher. ll1 10:19 Rashaun Jiménez MD is Attending Physician. diego 10:22 Triage completed. ll1 10:23 Patient has correct armband on for positive identification. Bed in low position. Call ll1 light in reach. Client placed on continuous cardiac and pulse oximetry monitoring. NIBP monitoring applied. 11:00 Inserted saline lock: 22 gauge in right forearm, using aseptic technique. Blood ll1 collected. 11:36 Dane Pineda is Hospitalizing Provider. diego 11:44 Abdomen Acute Series XRAY In Process Unspecified. EDMS 13:35 No provider procedures requiring assistance completed. Patient admitted, IV remains in ll1 place. Administered Medications: 10:46 Drug: Zofran (Ondansetron) 4 mg Route: IVP; Site: right forearm; ll1 13:37 Follow up: Response: No adverse reaction ll1 10:46 Drug: NS 0.9% 1000 ml Route: IV; Rate: 1 bolus; Site: right forearm; ll1 13:38 Follow up: Response: No adverse reaction; IV Status: Completed infusion; IV Intake: ll1 1000ml 10:47 Drug: fentaNYL (PF) 50 mcg {Note: pain 7/10, rass 0.} Route: IVP; Site: right forearm; ll1 13:37 Follow up: Response: No adverse reaction; Pain is decreased; RASS: Alert and Calm (0) ll1 Medication: 10:23 VIS not applicable for this client. ll1 Intake: 13:38 IV: 1000ml; Total: 1000ml. ll1 Outcome: 11:37 Decision to Hospitalize by Provider. diego 13:36 Admitted to Med/surg accompanied by tech, via wheelchair, room room 416, with chart. ll1 13:36 Condition: stable 13:36 Condition: stable 13:36 Instructed on the need for admit. 13:47 Admitted to Med/surg Report called to Isabel Lazo 1 15:24 Patient left the ED. em1 Signatures: Dispatcher [employer] EDMS Rashaun Jiménez MD MD cha Williams, Irene, RN Hoang Chavarria em1 Beth Ricci, BRITTNY MART [facility]
--- NOTE | 2022-07-24 11:38 | EDPHYS ---
Physician Documentation [facility] Name: Rico Mcneill Age: 52 yrs Sex: Male : 1970 Arrival Date: 07/24/2022 Time: 10:15 Bed 14 Private MD: Rashaun Cerna HPI: 07/24 10:35 This 52 yrs old Male presents to ER via EMS with complaints of abdominal pain.diego 10:35 The patient complains of pain to the top of head, forehead, left frontal area, left diego side of the back of head, left occipital area, left base of the skull, right frontal area, right side of the back of head, right occipital area and right base of the skull. The patient describes the headache as constant. Onset: The symptoms/episode began/occurred 2 day(s) ago. The patient presents with abdominal pain. Onset: The symptoms/episode began/occurred 2 day(s) ago. The patient presents to the emergency department with nausea, abdominal pain, of the right upper quadrant, left upper quadrant, right lower quadrant and left lower quadrant. Onset: The symptoms/episode began/occurred 2 day(s) ago. Possible causes: unknown, colostomy. The symptoms are aggravated by nothing. Associated signs and symptoms: The patient has no apparent associated signs or symptoms. Historical: - Allergies: 10:16 NKDA; ll1 - PMHx: 10:16 ileostomy; ll1 - PSHx: 10:16 Small bowel resection with ileostomy; ll1 - Immunization history:: Client reports having NOT received the Covid vaccine. - Social history:: Smoking status: Patient reports use of chewing tobacco. - Family history:: not pertinent. ROS: 10:35 Constitutional: Negative for fever, chills, and weight loss, Eyes: Negative for injury, diego pain, redness, and discharge, ENT: Negative for injury, pain, and discharge, Neck: Negative for injury, pain, and swelling, Cardiovascular: Negative for chest pain, palpitations, and edema, Respiratory: Negative for shortness of breath, cough, wheezing, and pleuritic chest pain, Back: Negative for injury and pain, : Negative for injury, bleeding, discharge, and swelling, MS/Extremity: Negative for injury and deformity, Skin: Negative for injury, rash, and discoloration, Psych: Negative for depression, anxiety, suicide ideation, homicidal ideation, and hallucinations, Allergy/Immunology: Negative for hives, rash, and allergies, Endocrine: Negative for neck swelling, polydipsia, polyuria, polyphagia, and marked weight changes, Hematologic/Lymphatic: Negative for swollen nodes, abnormal bleeding, and unusual bruising. 10:35 Abdomen/GI: Positive for abdominal pain, nausea. 10:35 Neuro: Positive for headache. Exam: 10:35 Constitutional: This is a well developed, well nourished patient who is awake, alert, diego and in no acute distress. Head/Face: Normocephalic, atraumatic. Eyes: Pupils equal round and reactive to light, extra-ocular motions intact. Lids and lashes normal. Conjunctiva and sclera are non-icteric and not injected. Cornea within normal limits. Periorbital areas with no swelling, redness, or edema. ENT: Nares patent. No nasal discharge, no septal abnormalities noted. Tympanic membranes are normal and external auditory canals are clear. Oropharynx with no redness, swelling, or masses, exudates, or evidence of obstruction, uvula midline. Mucous membranes moist. Neck: Trachea midline, no thyromegaly or masses palpated, and no cervical lymphadenopathy. Supple, full range of motion without nuchal rigidity, or vertebral point tenderness. No Meningismus. Chest/axilla: Normal chest wall appearance and motion. Nontender with no deformity. No lesions are appreciated. Cardiovascular: Regular rate and rhythm with a normal S1 and S2. No gallops, murmurs, or rubs. Normal PMI, no JVD. No pulse deficits. Respiratory: Lungs have equal breath sounds bilaterally, clear to auscultation and percussion. No rales, rhonchi or wheezes noted. No increased work of breathing, no retractions or nasal flaring. Back: No spinal tenderness. No costovertebral tenderness. Full range of motion. Male : Normal genitalia with no discharge or lesions. Skin: Warm, dry with normal turgor. Normal color with no rashes, no lesions, and no evidence of cellulitis. MS/ Extremity: Pulses equal, no cyanosis. Neurovascular intact. Full, normal range of motion. Neuro: Awake and alert, GCS 15, oriented to person, place, time, and situation. Cranial nerves II-XII grossly intact. Motor strength 5/5 in all extremities. Sensory grossly intact. Cerebellar exam normal. Normal gait. Psych: Awake, alert, with orientation to person, place and time. Behavior, mood, and affect are within normal limits. 10:35 Abdomen/GI: Inspection: abdomen appears normal, Bowel sounds: normal, Palpation: abdomen is soft and non-tender, Liver: no appreciated palpable abnormalities, Hernia: right ileostomy with parastromal hernia. 13:59 ECG was reviewed by the Attending Physician. [facility] Vital Signs: 10:21 BP 101 / 69; Pulse 89; Resp 16; Temp 97.8; Pulse Ox 100% ; Weight 65.77 kg; Height 6 ll1 ft. 1 in. (185.42 cm); Pain 8/10; 13:35 BP 127 / 84; Pulse 86; Resp 16; Pulse Ox 100% ; ll1 10:21 Body Mass Index 19.13 (65.77 kg, 185.42 cm) ll1 Diana Coma Score: 11:34 Eye Response: spontaneous(4). Verbal Response: oriented(5). Motor Response: obeys [facility] commands(6). Total: 15. MDM: 10:20 Patient medically screened. [facility] 11:34 Differential diagnosis: gastritis, cholecystitis, pancreatitis, viral gastroenteritis, diego gastroenteritis, uremia, diverticulitis, pancreatitis, Pyelonephritis, urinary tract infection. Data reviewed: vital signs, nurses notes, lab test result(s), EKG, radiologic studies, plain films. Data interpreted: director of transportation: rate is 89 beats/min, rhythm is regular, Pulse oximetry: on room air is 100 %. Test interpretation: by ED physician or midlevel provider: ECG, plain radiologic studies. Counseling: I had a detailed discussion with the patient and/or guardian regarding: the historical points, exam findings, and any diagnostic results supporting the discharge/admit diagnosis, lab results, radiology results, the need for further work-up and treatment in the hospital. 07/24 10:27 Order name: CBC with Diff; Complete Time: 11:22 diego 07/24 10:27 Order name: Comprehensive Metabolic Panel; Complete Time: 11:22 diego 07/24 10:27 Order name: Lipase; Complete Time: 11:22 diego 07/24 10:35 Order name: SARS-COV-2 Antigen Rapid em1 07/24 11:34 Order name: Urine Sodium Random [facility] 07/24 11:34 Order name: Urine Osmolality [facility] 07/24 10:27 Order name: Abdomen Acute Series XRAY [facility] 07/24 11:34 Order name: EKG; Complete Time: 11:35 diego 07/24 11:34 Order name: Osmolality, Serum [facility] 07/24 12:03 Order name: Diet Regular; Complete Time: 12:03 ll1 07/24 11:34 Order name: EKG - Nurse/Tech; Complete Time: 13:58 [facility] EC:59 Rate is 83 beats/min. Rhythm is regular. QRS Chromo is Normal. RI interval is normal. QRS diego interval is normal. QT interval is normal. No Q waves. T waves are Normal. No ST changes noted. Clinical impression: NSR w/ Non-specific ST/T Changes and No evidence of ischemia. Interpreted by me. Reviewed by me. Administered Medications: 10:46 Drug: Zofran (Ondansetron) 4 mg Route: IVP; Site: right forearm; ll1 13:37 Follow up: Response: No adverse reaction ll1 10:46 Drug: NS 0.9% 1000 ml Route: IV; Rate: 1 bolus; Site: right forearm; ll1 13:38 Follow up: Response: No adverse reaction; IV Status: Completed infusion; IV Intake: ll1 1000ml 10:47 Drug: fentaNYL (PF) 50 mcg {Note: pain 7/10, rass 0.} Route: IVP; Site: right forearm; ll1 13:37 Follow up: Response: No adverse reaction; Pain is decreased; RASS: Alert and Calm (0) ll1 Disposition Summary: 07/24/22 11:37 Hospitalization Ordered Hospitalization Status: Inpatient Admission diego Provider: Dane Pineda cha Location: Telemetry/MedSurg (Inpatient) diego Condition: Fair diego Problem: new diego Symptoms: have improved diego Bed/Room Type: Standard diego Room Assignment: 416(07/24/22 12:50) dw Diagnosis - Dehydration diego - Hypo-osmolality and hyponatremia diego - Abdominal pain, Generalized diego - Colostomy complication, unspecified diego - Acute kidney failure, unspecified - on chronic diego Discharge Instructions: - Discharge Summary Sheet diego - Abdominal Pain, Adult diego - General Headache Without Cause diego - Colostomy Home Guide, Adult diego - Abdominal Pain, Adult, Uyua-lc-Xlby diego - General Headache Without Cause, [id number]-tg-[id number] diego Forms: - Medication Reconciliation Form diego - SBAR form diego Signatures: Dispatcher [employer] Clemencia Almonte RN Rashaun Vidal MD MD cha Lewis, Lynsay, RN RN ll1 Corrections: (The following items were deleted from the chart) 12:50 11:37 diego dw
[2022-07-24 11:42] LABS: SARS-CoV-2 Antigen Rapid Res Negative (Negative)
--- NOTE | 2022-07-24 12:22 | RAD REPORT ---
EXAM DESCRIPTION: RAD - Abdomen Acute Series - 07/24/2022 11:42 am CLINICAL HISTORY: Abdominal pain FINDINGS: Lungs appear clear of acute infiltrate. Free air is not seen beneath the diaphragm. Air is present within a few mildly dilated loops of small bowel. Air is diminished within the colon. This is nonspecific. This could represent an enteritis or early partial small bowel obstruction
--- NOTE | 2022-07-24 12:34 | P.HP ---
Certification for Inpatient Patient admitted to: Inpatient With expected LOS: >2 Midnights Practitioner: I am a practitioner with admitting privileges, knowledge of patient current condition, hospital course, and medical plan of care. Services: Services provided to patient in accordance with Admission requirements found in Title 42 Section 412.3 of the Code of Federal Regulations Patient History Date of Service: 07/24/22 Reason for admission: Hyponatremia History of Present Illness: 52-year-old homeless gentleman with a history of hypothyroidism, status post ileostomy and bipolar disorder presented to the emergency department with a complaint of nausea, abdominal pain and migraine headache of 2 days duration. Patient reports decreased oral intake, denied any fever, denied any diarrhea. Blood work done in the emergency department demonstrated hyponatremia and acute renal failure. Patient started on IV fluid. He is admitted for further management. Allergies No Known Drug Allergies Allergy (Verified 09/09/16 22:36) Unknown Home Medications: NK [No Home Meds] 05/11/22 - Past Medical/Surgical History Diabetic: No -: Hypothyroidism -: Bipolar Disorder -: HTN -: bowel obstruction -: Colectomy -: Ileostomy Psychosocial/ Personal History: Patient is homeless. - Family History Father -: Cancer Mother -: Heart disease - Social History Alcohol use: No CD- Drugs: No Caffeine use: Yes Review of Systems Other: Except as documented, all other systems reviewed and negative. Physical Examination - Physical Exam General: Alert, In no apparent distress, Oriented x3 HEENT: Normocephalic, Mucous membr. moist/pink, Sclerae nonicteric Neck: Supple, JVD not distended Respiratory: Clear to auscultation bilaterally, Normal air movement Cardiovascular: No edema, Regular rate/rhythm, Normal S1 S2 Capillary refill: <2 Seconds Gastrointestinal: Normal bowel sounds, Soft and benign, Non-distended, Other (Ileostomy-prolapsed small bowel-chronic) Musculoskeletal: No swelling, No tenderness Integumentary: No rashes, No erythema, No cyanosis Neurological: Normal speech, Normal strength at 5/5 x4 extr, Cranial nerves 3-12 intact Lymphatics: No axilla or inguinal lymphadenopathy - Studies Laboratory Data (last 24 hrs) 07/24/22 10:30: Sodium 120 L, Potassium 4.1, BUN 93 H, Creatinine 2.64 H, Glucose 102, Total Bilirubin 0.6, AST 33, ALT 38, Alkaline Phosphatase 90, Lipase 731 H 07/24/22 10:30: WBC 8.90, Hgb 13.9, Hct 41.6, Plt Count 316 Assessment and Plan - Problems (Diagnosis) (1) Hypothyroidism Current Visit: Yes Status: Acute (2) Acute renal failure Current Visit: No Status: Acute Qualifiers: Acute renal failure type: unspecified Qualified Code(s): N17.9 - Acute kidney failure, unspecified (3) Hypertension Current Visit: No Status: Acute Qualifiers: Hypertension type: essential hypertension Qualified Code(s): I10 - Essential (primary) hypertension (4) Hyponatremia Current Visit: No Status: Acute (5) Migraine Current Visit: Yes Status: Acute - Plan Patient with a history of hypothyroidism. He is homeless and not on any home medications. Admit to the medical floor Hyponatremia likely secondary to dehydration given associated ALMA. Hydrate with IV normal saline, Monitor BMP. Avoid sodium overcorrection by 10 to 12 mEq/day. Monitor renal function to follow ALMA. Check TSH. Tramadol for headache. - Advance Directives Does patient have a Living Will: No Does patient have a Durable POA for Healthcare: No
[2022-07-24 15:53] VITALS: BMI 19.1
[2022-07-24] MEDS ORDERED: INFLUENZA VACCINE (for 6+ mo) 0.5 ML DOSE IMVAC ONE (17:00)
[2022-07-24] MEDS ORDERED: ONDANSETRON 4 MG/2 ML VIAL IV PRN (18:23)
[2022-07-24] MEDS ORDERED: TRAMADOL HCL 50 MG TAB PO PRN (18:23)
[2022-07-24] MEDS ORDERED: ACETAMINOPHEN 500 MG TAB PO PRN (18:23)
[2022-07-24] MEDS: NA CHLORIDE 0.9% 1,000 ML IV SCH (18:33)
[2022-07-24] MEDS: HEPARIN 5000 UNIT/ML 1 ML VIAL SQ SCH (18:41)
[2022-07-24 18:42] LABS: Specific Gravity 1.019 (1.005-1.030); Urine Bacteria <20 /HPF (<20); Urine Bilirubin NEGATIVE (Negative); Urine Blood 1+ (Negative); Urine Clarity Clear (Clear); Urine Color Light-Yellow (Yellow); Urine Glucose NEGATIVE (Negative); Urine Protein NEGATIVE (Negative); Urine RBC <5 /HPF (None Seen); Urine Urobilinogen Normal (Normal)
[2022-07-25] MEDS: HEPARIN 5000 UNIT/ML 1 ML VIAL SQ SCH ×3 (01:38→17:05)
[2022-07-25] MEDS: NA CHLORIDE 0.9% 1,000 ML IV SCH ×3 (02:03→17:05)
[2022-07-25 05:02] LABS: Absolute Lymphocytes (CBC) 3.2 K/uL (0.7-4.9); Hematocrit 38.3 % (39.6-49.0); MCV 86.3 fL (80-100); MPV 7.3 fL (7.6-11.3); RBC Red Blood Cell Count 4.44 M/uL (4.33-5.43)
[2022-07-25 05:36] LABS: Magnesium 2.1 mg/dL (1.8-2.4); Phosphorus 2.8 mg/dL (2.5-4.9); Potassium 3.9 mmol/L (3.5-5.1)
[2022-07-25 05:46] LABS: Thyroid Stimulating Hormone 6.77 uIU/mL (0.360-3.740)
--- NOTE | 2022-07-25 07:52 | EKG ---
Test Date: 2022-07-24 Test Time: 13:56:02 Drop Man: RANDY MEASUREMENT RESULTS: Intervals: Rate: 83 CT: 168 QRSD: 94 QT: 374 QTc: 439 [place]: P: 68 CT: 168 QRS: 71 T: 77 INTERPRETIVE STATEMENTS: Sinus rhythm with premature supraventricular complexes Junctional ST depression, probably normal Borderline ECG Compared to ECG 04/28/2022 04:00:41 Atrial premature complex(es) now present ST (T wave) deviation now present Early repolarization no longer present Electronically Signed On 07-25-22 07:49:04 [employer] by Vicente Walker
[2022-07-25 13:41] LABS: Potassium 3.5 mmol/L (3.5-5.1)
[2022-07-25] MEDS ORDERED: POTASSIUM CL SA 10 MEQ TAB PO ONE (15:00)
--- NOTE | 2022-07-25 17:36 | P.PN ---
Subjective Date of Service: 07/25/22 Chief Complaint: Hyponatremia Patient states he feels much better today. Blood pressure has been running low today. He is tolerating his diet. Physical Examination - Vital Signs Temperature: 98.4 F Blood Pressure: 86/46 Pulse: 76 Respirations: 16 Pulse Ox (%): 97 Assessment And Plan - Current Problems (Diagnosis) (1) Hypothyroidism Current Visit: Yes Status: Acute (2) Acute renal failure Current Visit: No Status: Acute Qualifiers: Acute renal failure type: unspecified Qualified Code(s): N17.9 - Acute kidney failure, unspecified (3) Hypertension Current Visit: No Status: Acute Qualifiers: Hypertension type: essential hypertension Qualified Code(s): I10 - Essential (primary) hypertension (4) Hyponatremia Current Visit: No Status: Acute (5) Migraine Current Visit: Yes Status: Acute (6) Hypotension Current Visit: Yes Status: Acute - Plan Patient with a history of hypothyroidism. TSH is mildly elevated. Hyponatremia likely secondary to dehydration given associated ALMA. ALMA resolved. Sodium level improved to 130. Continue IV normal saline. Monitor BMP. Avoid sodium overcorrection by 10 to 12 mEq/day. Tramadol for headache. Diet as tolerated. Bolus normal saline as needed for persistent hypotension. Check serum cortisol level.
[2022-07-25 20:56] LABS: Potassium 4.2 mmol/L (3.5-5.1)
[2022-07-26] MEDS: HEPARIN 5000 UNIT/ML 1 ML VIAL SQ SCH ×2 (00:33→08:17)
[2022-07-26 03:44] LABS: Potassium 3.5 mmol/L (3.5-5.1)
[2022-07-26] MEDS: NA CHLORIDE 0.9% 1,000 ML IV SCH (04:46)
[2022-07-26 09:20] VITALS: BP 88/49; TEMP 98.1; O2SAT 99
[2022-07-26] MEDS ORDERED: POTASSIUM CL SA 10 MEQ TAB PO ONE (09:20)
--- NOTE | 2022-07-26 12:21 | P.DS ---
Admission Date: 07/24/22 Discharge Date: 07/26/22 Disposition: ROUTINE DISCHARGE Discharge Condition: FAIR Reason for Admission: Hyponatremia - Problems (1) Hypothyroidism Status: Acute (2) Acute renal failure Status: Acute Qualifiers: Acute renal failure type: unspecified Qualified Code(s): N17.9 - Acute ki dney failure, unspecified (3) Hypertension Status: Acute Qualifiers: Hypertension type: essential hypertension Qualified Code(s): I10 - Essential (primary) hypertension (4) Hyponatremia Status: Acute (5) Migraine Status: Acute (6) Hypotension Status: Acute Brief History of Present Illness: 52-year-old homeless gentleman with a history of hypothyroidism, status post ileostomy and bipolar disorder presented to the emergency department with a complaint of nausea, abdominal pain and migraine headache of 2 days duration. Patient reports decreased oral intake, denied any fever, denied any diarrhea. Blood work done in the emergency department demonstrated hyponatremia and acute renal failure. Patient started on IV fluid. He was admitted for further management. Hospital Course: Patient admitted to the medical floor and treated for hyponatremia with IV normal saline. His sodium level improved significantly. Patient has a liquid ileostomy output. He denied any increased output. His nausea and abdominal pain also resolved. Patient is currently asymptomatic. His systolic blood pressure runs borderline low which I suspect is chronic. Patient tolerating diet. He is deemed stable for discharge. Vital Signs/Physical Exam: Temp Pulse Resp BP Pulse Ox 98.1 F 84 18 88/49 L 99 07/26/22 08:00 07/26/22 08:00 07/26/22 08:00 07/26/22 08:00 07/26/22 08:00 General: Alert, In no apparent distress, Oriented x3 HEENT: Mucous membr. moist/pink Neck: JVD not distended Respiratory: Clear to auscultation bilaterally, Normal air movement Cardiovascular: No edema, Regular rate/rhythm, Normal S1 S2 Gastrointestinal: Soft and benign, Non-distended, No tenderness Musculoskeletal: No swelling Integumentary: No rashes, No cyanosis Neurological: Normal strength at 5/5 x4 extr Laboratory Data at Discharge: WBC 9.20 K/uL (4.3-10.9) 07/25/22 04:14 Hgb 12.9 g/dL (13.6-17.9) L 07/25/22 04:14 Hct 38.3 % (39.6-49.0) L 07/25/22 04:14 Plt Count 301 K/uL (152-406) 07/25/22 04:14 Sodium 130 mmol/L (136-145) L 07/26/22 03:04 Potassium 3.5 mmol/L (3.5-5.1) D 07/26/22 03:04 BUN 28 mg/dL (7-18) H 07/26/22 03:04 Creatinine 1.07 mg/dL (0.55-1.3) 07/26/22 03:04 Glucose 77 mg/dL (74-106) 07/26/22 03:04 Phosphorus 2.8 mg/dL (2.5-4.9) 07/25/22 04:44 Magnesium 2.1 mg/dL (1.8-2.4) 07/25/22 04:44 Total Bilirubin 0.6 mg/dL (0.2-1.0) 07/24/22 10:30 AST 33 U/L (15-37) 07/24/22 10:30 ALT 38 U/L (12-78) 07/24/22 10:30 Alkaline Phosphatase 90 U/L (45-117) 07/24/22 10:30 Lipase 731 U/L (73-393) H 07/24/22 10:30 Home Medications: NK [No Home Meds] 05/11/22 Followup: NONE,NONE [Primary Care Provider] - 1-2 Weeks (call to schedule an appointment) Time spent managing pt's care (in minutes): 33
== END 2022-07-26 11:45 | disposition home or self-care (01) | DRG 641 ==
LOC: ER 10:13 → ERHOLD 12:20 → 4TH 14:16
PROVIDERS: ADMIT Internal Medicine; ATTEND Internal Medicine
DX: E87.1 Hypo-osmolality and hyponatremia (principal); N17.9 Acute kidney failure, unspecified; E86.0 Dehydration; I10 Essential (primary) hypertension; E03.9 Hypothyroidism, unspecified; I95.9 Hypotension, unspecified; G43.909 Migraine, unspecified, not intractable, without status migrainosus; F17.220 Nicotine dependence, chewing tobacco, uncomplicated; Z59.00 Homelessness unspecified; Z28.310 Unvaccinated for COVID-19; Z20.822 Contact with and (suspected) exposure to COVID-19
CPT/HCPCS: 36415; 74022; 80048; 80053; 81001; 82533; 83690; 83735; 84100; 84439; 84443; 85025; 87811; 90471; 93005; 96361; 96374; 96375; 99285; J1644; J2405; J3010; J7030; Q2035

== ENCOUNTER 2022-08-31 10:10 | Emergency (ER) | payer SELFPAY ==
--- OUTSIDE RECORDS SUMMARY | 2022-08-31 10:25 | XMS REPORT | Continuity of Care Document ---
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 18:23[facility]00 [facility] SARS-COV2/RT-PCR ([facility] & 2022-03-06 17:36:00 [facility] REF LABS) [facility] TSH/FREE T4 IF INDICATED 2022-03-06 14:18:00 Aryan Tello [facility] T4, FREE 2022-03-06 14:18:00 [facility] 2022-03-06 13:48:12 Elisha Aryan [facility] XR CHEST 1 VIEW PORTABLE 2022-03-06 13:42:00 Elisha Aryan [facility] / BEDSIDE [facility] B-TYPE NATRIURETIC FACTOR 2022-03-06 13:23:00 ElishaAryan I [facility] (BNP) [facility] CBC W/PLT COUNT & AUTO 2022-03-06 13:23:[address] [facility] S t [facility] DIFFERENTIAL [facility] COMPREHENSIVE METABOLIC 2022-03-06 13:23:00 Elisha Aryan [facility] PANEL [facility] HIGH SENSITIVITY TROPONIN 2022-03-06 13:23:00 Elisha Rasheedamerrick WILD I [facility] MAGNESIUM 2022-03-06 13:23:00 Rasheeda Tellomerrick [facility] PHOSPHORUS 2022-03-06 13:23:00 Aryan Tello [facility] LACTIC ACID, VENOUS 2022-03-06 13:23:[address] [facility] CREATINE KINASE (CK) 2022-03-06 13:23:00 Elisha Aryan [facility] CBC W/PLT COUNT & AUTO 2022-03-06 13:23:00 Elisha Aryan [facility] DIFFERENTIAL [facility] ECG 12-LEAD 2022-03-06 12:12:56 Unknown, Hl7 [facility] ECG 12-LEAD 2022-03-06 12:12:56 Unknown, Hl7 [facility] ECG 12-LEAD 2022-03-06 12:12:56 Unknown, Hl7 [facility] EKG-SCANNED 2022-03-06 00:00:00 Provider, [facility] CBC (WITHOUT 2022-02-20 05:10:00 Rufino Lazaro Healt h DIFFERENTIAL) BASIC METABOLIC PANEL 2022-02-20 05:10:00 Rufino Lazaro Health [facility] 2022-02-20 05:10:00 Rufino Lazaro PHOSPHORUS 2022-02-20 05:10:00 Rufino Lazaro h INFUSION PUMP 2022-02-19 19:03:50 Rufino Lazaro h COMPREHENSIVE METABOLIC 2022-02-19 06:35:00 [facility] PANEL CBC/DIFF 2022-02-19 06:35:00 Kobe Blake alth PHOSPHORUS 2022-02-19 06:35:00 Kobe Blake alth CBC 2022-02-19 06:35:00 Kobe Blake alth URINALYSIS W/REFLEX TO 2022-02-19 00:34:00 Kobe Blake [facility] URINE CULTURE URINALYSIS 2022-02-19 00:34:00 [facility] COLLECTION 2022-02-19 00:34:00 Philip Chadd [facility] KIT SARS-COV-2, FLU A/B, RSV 2022-02-18 19:00:00 Philip Chadd [facility] CORONAVIRUS, COVID-19, 2022-02-18 19:00:00 Philip [facility] OLENA XRAY CHEST 1 VIEW 2022-02-18 15:23:00 Roz Scales [facility] CONSULT CLINICAL CASE 2022-02-18 14:50:50 Roz Scales [facility] MANAGEMENT (RN/SW) CBC/DIFF 2022-02-18 14:16:00 Susana Cooley [facility] h BASIC METABOLIC PANEL 2022-02-18 14:16:00 Albab, [facility] MAGNESIUM 2022-02-18 14:16:00 [facility] 2022-02-18 14:16:00 Albab Susana [facility] h CREATINE KINASE (CK) 2022-02-18 14:16:00 Albab [facility] CBC 2022-02-18 14:16:00 [facility] BASIC METABOLIC PANEL 2022-02-11 03:34:[address] [facility] MAGNESIUM 2022-02-11 03:34:00 Teresa Alves [facility] PHOSPHORUS 2022-02-11 03:34:[address] [facility] CBC (WITHOUT 2022-02-11 03:34:[address] [facility] DIFFERENTIAL) CBC/DIFF 2022-02-10 03:39:00 Meghan Islas Healt h BASIC METABOLIC PANEL 2022-02-10 03:39:00 [facility]22-02-10 03:39[facility] 2022-02-10 03:39:[address] [facility] HORMONE (TSH) FREE T4 2022-02-10 03:39:[address] [facility] CBC/DIFF 2022-02-09 04:38:00 Meghan Islas Healt [facility] BASIC METABOLIC PANEL 2022-02-09 04:38:00 [facility] 2022-02-09 04:38:00 [facility] CORT[facility]OL, TOTAL 2022-02-08 11:37:00 Mari Meier ealth GLUCOSE POC 2022-02-08 08:07:00 [facility] CBC (WITHOUT 2022-02-08 04:00:00 Mari Meier ealth DIFFERENTIAL) COMPREHENSIVE METABOLIC 2022-02-08 04:00:00 Mari Meier [facility] PANEL PHOSPHORUS 2022-02-08 04:00:00 Mari Meier ealth MAGNESIUM 2022-02-08 04:00:00 Mari Meier ealth PT/INR 2022-02-08 04:00:00 Mari Meier H ealth URINALYSIS W/REFLEX TO 2022-02-07 18:06:00 Areli Arciniega [facility] URINE CULTURE URINALYSIS 2022-02-07 18:06:00 Areli Arciniega [facility] URINE CULTURE COLLECTION 2022-02-07 18:06:00 Areli Arciniega [facility] KIT ELECTROLYTES, URINE 2022-02-07 18:06:[address] [facility] OSMOLALITY, URINE 2022-02-07 18:06:[address] [facility] ealt SARS-COV-2, FLU A/B, RSV 2022-02-07 18:05:00 Jyoti Carrillo [facility] CORONAVIRUS, COVID-19, 2022-02-07 18:05:00 Jyoti Carrillo [facility] NUTRITION CONSULT 2022-02-07 17:43:36 Mari Meier [facility] BASIC METABOLIC PANEL 2022-02-07 17:18:00 Jyoti Carrillo [facility] LACTIC ACID 2022-02-07 14:04:00 Areli Arciniega alth CBC/DIFF 2022-02-07 14:03:00 Areli Arciniega alth BASIC METABOLIC PANEL 2022-02-07 14:03:00 Areli Arciniega [facility] LIVER PROFILE 2022-02-07 14:03:00 Areli Arciniega alth LIPASE 2022-02-07 14:03:00 Areli Arciniega alth MAGNESIUM 2022-02-07 14:03:00 Areli Arciniega alth PHOSPHORUS 2022-02-07 14:03:00 Areli Arciniega alth TROPONIN I 2022-02-07 14:03:00 Areli Arciniega alth CBC 2022-02-07 14:03:00 Areli Arciniega alth 12 LEAD EKG 2022-01-21 15:46:10 Ori Goldberg [facility] h CBC/DIFF 2022-01-21 04:11:00 Steve Lucas [facility] MAGNESIUM 2022-01-21 04:11:00 Steve Lucas [facility] PHOSPHORUS 2022-01-21 04:11:[address] [facility] BASIC METABOLIC PANEL 2022-01-21 04:11:00 Ori Goldberg [facility] CBC 2022-01-21 04:11:[address] [facility] CBC/DIFF 2022-01-20 04:37:00 Lindsey, Steve Esther Lynne [facility] MAGNESIUM 2022-01-20 04:37:00 LindseyNoe herrerah Esther [facility] PHOSPHORUS 2022-01-20 04:37:00 Lindsey, Steve P [facility] BASIC METABOLIC PANEL 2022-01-20 04:37:00 Lindsey Steve P [facility] CBC 2022-01-20 04:37:00 Lindsey Steve P [facility] MAGNESIUM 2022-01-19 18:09:00 Lindsey Steve P [facility] PHOSPHORUS 2022-01-19 18:09:00 [facility] BASIC METABOLIC PANEL 2022-01-19 18:09:00 [facility] Esther [facility] CORTISOL, TOTAL 2022-01-19 18:09:[address] [facility] URINALYSIS W/REFLEX TO 2022-01-19 17:22:00 LindseySteve child [facility] URINE CULTURE URINALYSIS 2022-01-19 17:22:00 Lindsey Steve Esther [facility] URINE CULTURE COLLECTION 2022-01-19 17:22:00 Noe Lucash Esther [facility] KIT COMPUTED TOMOGRAPHY 2022-01-19 13:29:[address] [facility] ABDOMEN AND PELVIS WITHOUT CONTRAST CBC/DIFF 2022-01-19 04:44:00 Noe Lucash Esther [facility] CBC 2022-01-19 04:44:00 Noe Lucash Esther [facility] DIFFERENTIAL, MANUAL (NO 2022-01-19 04:44:00 LindseySteve Esther [facility] Health MORPHOLOGY)-WAM BASIC METABOLIC PANEL 2022-01-18 17:15:00 LindseySteve P [facility] CBC/DIFF 2022-01-18 04:46:00 Noe Lucash P [facility] MAGNESIUM 2022-01-18 04:46:00 Lindsey Steve P [facility] PHOSPHORUS 2022-01-18 04:46:00 [facility] BASIC METABOLIC PANEL 2022-01-18 04:46:[address] [facility] CBC 2022-01-18 04:46:00 Steve Lucas [facility] HIV AG/AB COMBO ROUTINE 2022-01-18 04:46:00 Karin Bassett [facility] SCREENING ENTERIC PATHOGENS NUCLEIC 2022-01-18 03:25:00 Karin Bassett [facility] ACID TEST BASIC METABOLIC PANEL 2022-01-18 00:29:[address] [facility] BASIC METABOLIC PANEL 2022-01-17 17:07:00 LindseySteve P [facility] BASIC METABOLIC PANEL 2022-01-17 13:15:00 [facility] CALPROTECTIN FECAL 2022-01-17 12:38:00 Steve Lucas ealth FECAL LEUKOCYTES 2022-01-17 12:38:00 Steve Lucas a lt T-TRANSGLUTAMINASE IGA 2022-01-17 12:22:00 [facility] BASIC METABOLIC PANEL 2022-01-17 08:51:00 LindseyNoeh P [facility] BASIC METABOLIC PANEL 2022-01-17 04:47:00 [facility] CBC/DIFF 2022-01-17 04:47:00 Steve Lucas [facility]al [facility] MAGNESIUM 2022-01-17 04:47:00 Steve Lucas [facility]al [facility] PHOSPHORUS 2022-01-17 04:47:00 Steve Lucas [facility]al CBC 2022-01-17 04:47:00 Steve Lucas [facility] BASIC METABOLIC PANEL 2022-01-17 00:08:00 [facility] 12 LEAD EKG 2022-01-16 21:23:25 Steve Lucas [facility] BASIC METABOLIC PANEL 2022-01-16 21:08:00 [facility] XRAY CHEST 2 VIEWS 2022-01-16 19:56:00 Steve Lucas ealth IP CONSULT TO PHYSICAL 2022-01-16 19:17:17 [facility] THERAPY CONSULT CLINICAL CASE 2022-01-16 19:17:17 Lindsey [facility] MANAGEMENT (RN/SW) SEQUENTIAL COMPRESSION 2022-01-16 19:17:17 Lindsey Steve [facility] PUMP SEQUENTIAL COMPRESSION 2022-01-16 19:17:17 Lindsey Steve [facility] PUMP SODIUM, URINE, RANDOM 2022-01-16 16:00:00 Kevin Nieves [facility] CREATININE, URINE, RANDOM 2022-01-16 16:00:[address] [facility] OSMOLALITY, URINE 2022-01-16 16:00:[address] [facility] SARS-COV-2, FLU A/B, RSV 2022-01-16 15:20:[address] [facility] CORONAVIRUS, COVID-19, 2022-01-16 15:20:00 Kevin Nieves [facility] OLENA FOLIC ACID 2022-01-16 14:13:00 Kevin Nieves [facility] CREATININE POC 2022-01-16 13:55:00 Raymon Martin [facility] BMP POC 2022-01-16 13:46:00 [facility] CBC/DIFF 2022-01-16 12:12:00 Raymon Martin [facility] h CBC 2022-01-16 12:12:00 Raymon Martin [facility] BASIC METABOLIC PANEL 2022-01-16 12:11:00 Sadiq Vargas [facility] MAGNESIUM 2022-01-16 12:11:00 Sadiq Vargas [facility] VITAMIN B12 2022-01-16 12:11:[address] [facility] OSMOLALITY,SERUM 2022-01-16 12:11:[address] [facility] INFUSION PUMP 2022-01-11 09:21:[address] [facility] GLUCOSE POC 2022-01-11 07:54:[address] [facility] BASIC METABOLIC PANEL 2022-01-11 04:07:[address] [facility] MAGNESIUM 2022-01-11 04:07:00 [facility] PHOS[facility]US 2022-01-11 04:07:00 Merissa Richards [facility] h CBC/DIFF 2022-01-11 04:06:00 [facility] IRON PROFILE 2022-01-11 04:06:00 [facility] FOLIC ACID 2022-01-11 04:06:00 [facility] CBC 2022-01-11 04:06:00 [facility] GLUCOSE POC 2022-01-10 18:16:[address] [facility] URINALYSIS 2022-01-10 16:10:00 [facility] URINALYSIS 2022-01-10 16:10:00 [facility] SARS-COV-2, FLU A/B, RSV 2022-01-10 15:54:00 Merissa Richards [facility] CORONAVIRUS, COVID-19, 2022-01-10 15:54:00 Antoine Hester [facility] OLENA BASIC METABOLIC PANEL 2022-01-10 15:54:[address] [facility] VITAMIN B12 2022-01-10 15:54:00 [facility] VBG POC 2022-01-10 11:14:00 UnknownDia [facility] CBC/DIFF 2022-01-10 11:13:00 Antoine Hester [facility] h BASIC METABOLIC PANEL 2022-01-10 11:13:[address] [facility] LACTIC ACID 2022-01-10 11:13:00 [facility] CBC 2022-01-10 11:13:00 Antoine Hester [facility] h LIVER PROFILE 2022-01-10 11:13:00 [facility] CK, TOTAL 2022-01-10 11:13:00 [facility] FERRITIN 2022-01-10 11:13:00 [facility] CREATINE KINASE MB (CKMB) 2022-01-10 11:13:00 Merissa Richards [facility] XRAY CHEST 2 VIEWS 2022-01-08 21:50:[address] [facility] CBC/DIFF 2022-01-08 21:27:00 Jaz Tanja Watson [facility] BASIC METABOLIC PANEL 2022-01-08 21:27:00 Jaz Tanja Walter [facility] LIVER PROFILE 2022-01-08 21:27:00 Jaz Tanja K [facility] CK, TOTAL 2022-01-08 21:27:00 SebastianRandaTanja K [facility] TROPONIN I 2022-01-08 21:27:00 SebastianTanja [facility] CBC 2022-01-08 21:27:00 SebastianRandaTanja Walter [facility] CREATINE KINASE MB (CKMB) 2022-01-08 21:27:[address] [facility] 12 LEAD EKG 2022-01-08 20:59:56 Jaz Tanja K [facility] [id number] 2020-01-09 00:00:00 [facility].[address] [place] [address] Plan of Care Planned Activity Planned Date Details Comments Source Future Scheduled 2029-03-23 Screening for malignant [facility] Test 00:00:00 neoplasm of colon [facility] (procedure) [code = 307033570] Future Scheduled 2029-03-23 Screening for malignant [facility] Test 00:00:00 neoplasm of colon [facility] (procedure) [code = 523872097] Future Scheduled 2029-03-23 Screening for malignant [facility] Test 00:00:00 neoplasm of colon Medical Ce [facility] (procedure) [code = 159878376] Future Scheduled 2029-03-23 Screening for malignant [facility] Test 00:00:00 neoplasm of colon Medical Ce [facility] (procedure) [code = 768456869] Future Scheduled 2029-03-23 Screening for malignant [facility] Test 00:00:00 neoplasm of colon [facility] (procedure) [code = 736597842] Future Scheduled 2029-03-23 Screening for malignant [facility] Test 00:00:00 neoplasm of colon Medical Ce [facility] (procedure) [code = 336787648] Future Scheduled 2029-03-23 Screening for malignant [facility] Test 00:00:00 neoplasm of colon Medical Ce [facility] (procedure) [code = 372637612] Future Scheduled 2029-03-23 Screening for malignant [facility] Test 00:00:00 neoplasm of colon Medical Ce [facility] (procedure) [code = 211153648] Future Scheduled 2029-03-23 Screening for malignant [facility] Test 00:00:00 neoplasm of colon Medical Ce [facility] (procedure) [code = 544679232] Future Scheduled 2029-03-23 Screening for malignant [facility] Test 00:00:00 neoplasm of colon Medical Ce [facility]ter (procedure) [code = 508915698] Future Scheduled 2029-03-23 Screening for malignant [facility] Test 00:00:00 neoplasm of colon Medical Ce [facility]ter (procedure) [code = 114454004] Future Scheduled 2029-03-23 Screening for malignant [facility] Test 00:00:00 neoplasm of colon Medical Ce [facility]ter (procedure) [code = 761575938] Future Scheduled 2029-03-23 Screening for malignant [facility] Test 00:00:00 neoplasm of colon Medical Ce [facility] (procedure) [code = 243931008] Future Scheduled 2029-03-23 Screening for malignant [facility] Test 00:00:00 neoplasm of colon Medical Ce [facility]ter (procedure) [code = 664304645] Future Scheduled 2029-03-23 Screening for malignant [facility] Test 00:00:00 neoplasm of colon Medical Ce [facility]ter (procedure) [code = 555958863] Future Scheduled 2029-03-23 Screening for malignant [facility] Test 00:00:00 neoplasm of colon Medical Ce [facility]ter (procedure) [code = 113419522] Future Scheduled 2029-03-23 Screening for malignant [facility] Test 00:00:00 neoplasm of colon Medical Ce [facility] (procedure) [code = 329195472] Future Scheduled 2029-03-23 Screening for malignant [facility] Test 00:00:00 neoplasm of colon Medical Ce [facility] (procedure) [code = 750235049] Future Scheduled 2029-03-23 Screening for malignant [facility] Test 00:00:00 neoplasm of colon Medical Ce [facility] (procedure) [code = 109082830] Future Scheduled 2029-03-23 Screening for malignant [facility] Test 00:00:00 neoplasm of colon Medical Ce [facility]ter (procedure) [code = 411577024] Future Scheduled 2029-03-23 Screening for malignant [facility] Test 00:00:00 neoplasm of colon Medical Ce nter (procedure) [code = 285704226] Future Scheduled 2029-03-23 Screening for malignant [facility] Test 00:00:00 neoplasm of colon Medical Ce [facility]ter (procedure) [code = 640441439] Future Scheduled 2029-03-23 Screening for malignant [facility] Test 00:00:00 neoplasm of colon Medical Ce [facility]ter (procedure) [code = 425630780] Future Scheduled 2029-03-23 Screening for malignant [facility] Test 00:00:00 neoplasm of colon Medical Ce [facility]ter (procedure) [code = 273970212] Future Scheduled 2029-03-23 Screening for malignant [facility] Test 00:00:00 neoplasm of colon Medical Ce [facility]ter (procedure) [code = 893721182] Future Scheduled 2029-03-23 Screening for malignant [facility] Test 00:00:00 neoplasm of colon Medical Ce [facility]ter (procedure) [code = 353611598] Future Scheduled 2029-03-23 Screening for malignant [facility] Test 00:00:00 neoplasm of colon Medical Ce [facility]ter (procedure) [code = 246159072] Future Scheduled 2029-03-23 Screening for malignant [facility] Test 00:00:00 neoplasm of colon Medical Ce nter (procedure) [code = 986786897] Future Scheduled 2029-03-23 Screening for malignant [facility] Test 00:00:00 neoplasm of colon Medical Ce [facility]ter (procedure) [code = 897589193] Future Scheduled 2029-03-23 Screening for malignant [facility] 00:00:00 neoplasm of colon Medical Ce [facility]ter (procedure) [code = 072072202] Future Scheduled 2029-03-23 Screening for malignant [facility] Test 00:00:00 neoplasm of colon Medical Ce [facility]ter (procedure) [code = 444758762] Future Scheduled 2029-03-23 Screening for malignant [facility] Test 00:00:00 neoplasm of colon Medical Ce nter (procedure) [code = 503082826] Future Scheduled 2029-03-23 Screening for malignant [facility] Test 00:00:00 neoplasm of colon Medical Ce [facility]ter (procedure) [code = 670534686] Future Scheduled 2022-08-[address] [facility] 00:00:00 (12+) [code = Medical Center DEPRESSION SCREENING (12+)] Future Scheduled 2022-05-24 IMM Influenza Seasonal H [...] 00:00:00 neoplasm of colon (procedure) [code = 936326775] Future Scheduled 2020-02-14 Screening for malignant [facility] Test 00:00:00 neoplasm of colon (procedure) [code = 626374908] Future Scheduled 2020-02-14 Screening for malignant [facility] 00:00:00 neoplasm of colon (procedure) [code = 139865252] Future Scheduled 2020-02-14 Screening for malignant [facility] 00:00:00 neoplasm of colon (procedure) [code = 523362311] Future Scheduled 2020-02-14 Screening for malignant [facility] 00:00:00 neoplasm of colon (procedure) [code = 252075828] Future Scheduled 2020-02-14 Screening for malignant [facility] 00:00:00 neoplasm of colon (procedure) [code = 406349508] Future Scheduled 2020-02-14 Screening for malignant [facility] 00:00:00 neoplasm of colon (procedure) [code = 048786197] Future Scheduled 2020-02-14 Screening for malignant [facility] 00:00:00 neoplasm of colon (procedure) [code = 237052454] Future Scheduled 2020-02-14 Screening for malignant [facility] 00:00:00 neoplasm of colon (procedure) [code = 139361235] Future Scheduled 2020-02-14 Screening for malignant [facility] 00:00:00 neoplasm of colon (procedure) [code = 873359063] Future Scheduled 2020-02-14 Screening for malignant [facility] 00:00:00 neoplasm of colon (procedure) [code = 064811791] Future Scheduled 2020-02-14 Screening for malignant [facility] 00:00:00 neoplasm of colon (procedure) [code = 338021296] Future Scheduled 2020-02-14 Screening for malignant [facility] 00:00:00 neoplasm of colon (procedure) [code = 163465957] Future Scheduled 2020-02-14 Screening for malignant [facility] 00:00:00 neoplasm of colon (procedure) [code = 168350527] Future Scheduled 2020-02-14 Screening for malignant [facility] 00:00:00 neoplasm of colon (procedure) [code = 177272331] Future Scheduled 2020-02-14 SHINGLES VACCINES ([address] [facility] 00:00:00 2) [code = [facility] VACCINES (1 of 2)] Future Scheduled 2020-02-14 SHINGLES VACCINES ([address] [facility] 00:00:00 2) [code = [facility] VACCINES (1 of 2)] Future Scheduled [facility] 2[facility] [code = [facility] VACCINES (1 of 2)] Future Scheduled 2005 Lipid panel (procedure) [facility] 00:00:00 [code = 51705854] Medical Ce nter Future Scheduled 2005 Lipid panel (procedure) [facility] 00:00:00 [code = 39029190] Medical Ce nter Future Scheduled 2005 Lipid panel (procedure) [facility] 00:00:00 [code = 20208651] Medical Ce nter Future Scheduled 2005 Lipid panel (procedure) [facility] 00:00:00 [code = 12367307] Medical Ce nter Future Scheduled 2005 Lipid panel (procedure) [facility] 00:00:00 [code = 99148259] Medical Ce nter Future Scheduled 2005 Lipid panel (procedure) [facility] 00:00:00 [code = 60953336] Medical Ce nter Future Scheduled 2005 Lipid panel (procedure) [facility] 00:00:00 [code = 34861371] Medical Ce nter Future Scheduled 2005 Lipid panel (procedure) [facility] 00:00:00 [code = 33423970] Medical Ce nter Future Scheduled 2005 Lipid panel (procedure) [facility] 00:00:00 [code = 09003033] Medical Ce nter Future Scheduled 2005 Lipid panel (procedure) [facility] 00:00:00 [code = 73289294] Medical Ce nter Future Scheduled 2005 Lipid panel (procedure) [facility] 00:00:00 [code = 09658708] Medical Ce nter Future Scheduled 2005 Lipid panel (procedure) [facility] 00:00:00 [code = 41216373] Medical Ce nter Future Scheduled 2005 Lipid panel (procedure) [facility] 00:00:00 [code = 82335763] Medical Ce nter Future Scheduled 2005 Lipid panel (procedure) [facility] 00:00:00 [code = 20659171] Medical Ce nter Future Scheduled 2005 Lipid panel (procedure) [facility] 00:00:00 [code = 11479671] Medical Ce nter Future Scheduled 2005 Lipid panel (procedure) [facility] 00:00:00 [code = 49626699] Medical Ce nter Future Scheduled 2005 Lipid panel (procedure) [facility] 00:00:00 [code = 33239435] Medical Ce nter Future Scheduled 1989 DTAP/TDAP/TD [...] Cessation Counseling and Screening (12+)] Future Scheduled [address] [facility]:00 [code = CT Colonography [facility] (combo)] Future Scheduled 1970 Screening for malignant [facility] 00:00:00 neoplasm of colon Medical Ce nter (procedure) [code = 272535088] Future Scheduled 1970 Screening for malignant [facility] 00:00:00 neoplasm of colon Medical Ce nter (procedure) [code = 291041279] Future Scheduled 1970 S[facility]] [facility] Cent[facility] Future Scheduled 1970 Screening for malignant [facility] 00:00:00 neoplasm of colon Medical Ce nter (procedure) [code = 265101113] Future Scheduled 1970 Screening for malignant [facility] 00:00:00 neoplasm of colon Medical Ce nter (procedure) [code = 065575851] Future Scheduled 1970 Sigmoidoscopy [facility]code = [facility] S[facility]oscopy] Medical Cente r Future Scheduled 1970 CT Colonography (combo) [facility] 00:00:00 [code = CT Colonography [facility] (combo)] Future Scheduled 1970 Screening for malignant [facility] 00:00:00 neoplasm of colon Medical Ce nter (procedure) [code = 056506648] Future Scheduled 1970 Screening for malignant [facility] 00:00:00 neoplasm of colon Medical Ce nter (procedure) [code = 779156594] Future Scheduled 1970 Sigmoidoscopy [facility]code = [facility]oscopy] Medical Cente r Future Scheduled 1970 CT Colonography (combo) [facility] 00:00:00 [code = CT Colonography [facility] ([facility])] Future Scheduled 1970 Screening for malignant [facility] 00:00:00 neoplasm of colon Medical Ce nter (procedure) [code = 666488789] Future Scheduled 1970 Screening for malignant [facility] 00:00:00 neoplasm of colon Medical Ce nter (procedure) [code = 323598723] Future Scheduled 1970 Sigmoidoscopy [code = [facility] 00:[facility] S[facility]oidoscopy] Medical Cente r Future Scheduled 1970 CT Colonography (combo) [facility] 00:00:00 [code = CT Colonography [facility] ([facility])] Future Scheduled 1970 Screening for malignant [facility] 00:00:00 neoplasm of colon Medical Ce nter (procedure) [code = 312267244] Future Scheduled 1970 Screening for malignant [facility] 00:00:00 neoplasm of colon Medical Ce nter (procedure) [code = 683135572] Future Scheduled 1970 Sigmoidoscopy [code = [facility] 00:[facility] S[facility]oscopy] Medical Cente r Future Scheduled 1970 CT Colonography (combo) [facility] 00:00:00 [code = CT Colonography [facility] ([facility])] Future Scheduled 1970 Screening for malignant [facility] 00:00:00 neoplasm of colon Medical Ce nter (procedure) [code = 448965889] Future Scheduled 1970 Screening for malignant [facility] 00:00:00 neoplasm of colon Medical Ce nter (procedure) [code = 555032883] Future Scheduled 1970 Sigmoidoscopy [code = [facility] 00:[facility] S[facility]oidoscopy] Medical Cente r Future Scheduled 1970 CT Colonography (combo) [facility] 00:00:00 [code = CT Colonography [facility] (com[facility])] Future Scheduled 1970 Screening for malignant [facility] 00:00:00 neoplasm of colon Medical Ce nter (procedure) [code = 983058060] Future Scheduled 1970 Screening for malignant [facility] 00:00:00 neoplasm of colon Medical Ce nter (procedure) [code = 171596827] Future Scheduled 1970 Sigmoidoscopy [facility]code [facility] 00:[facility] S[facility]oidoscopy] Medical Cente r Future Scheduled 1970 CT Colonography (combo) [facility] 00:00:00 [code = CT Colonography [facility] ([facility])] Future Scheduled 1970 Screening for malignant [facility] 00:00:00 neoplasm of colon Medical Ce nter (procedure) [code = 473878021] Future Scheduled 1970 Screening for malignant [facility] 00:00:00 neoplasm of colon Medical Ce nter (procedure) [code = 881501280] Future Scheduled 1970 Sigmoidoscopy [code [facility] 00:[facility] Sigmoidoscopy] Medical Cente r Future Scheduled 1970 CT Colonography (combo) [facility] 00:00:00 [code = CT Colonography [facility] (com[facility])] Future Scheduled 1970 Screening for malignant [facility] 00:00:00 neoplasm of colon Medical Ce nter (procedure) [code = 916090295] Future Scheduled 1970 Screening for malignant [facility] 00:00:00 neoplasm of colon Medical Ce nter (procedure) [code = 824485155] Future Scheduled 1970 Sigmoidoscopy [facility]code [facility] 00:[facility] S[facility]oscopy] Medical Cente r Future Scheduled 1970 CT Colonography (combo) [facility] 00:00:00 [code = CT Colonography [facility] (com[facility])] Future Scheduled 1970 Screening for malignant [facility] 00:00:00 neoplasm of colon Medical Ce nter (procedure) [code = 221893542] Future Scheduled 1970 Screening for malignant [facility] 00:00:00 neoplasm of colon Medical Ce nter (procedure) [code = 456129139] Future Scheduled 1970 Sigmoidoscopy [code = [facility] 00:[facility] Sigmoidoscopy] Medical Cente r Future Scheduled 1970 CT Colonography (combo) [facility] 00:00:00 [code = CT Colonography [facility] ([facility])] Future Scheduled 1970 Screening for malignant [facility] 00:00:00 neoplasm of colon Medical Ce nter (procedure) [code = 783002574] Future Scheduled 1970 Screening for malignant [facility] 00:00:00 neoplasm of colon Medical Ce nter (procedure) [code = 399447751] Future Scheduled 1970 Sigmoidoscopy [code = [facility] 00:[facility] S[facility]oidoscopy] Medical Cente r Future Scheduled 1970 CT Colonography (combo) [facility] 00:00:00 [code = CT Colonography [facility] (com[facility])] Future Scheduled 1970 Screening for malignant [facility] 00:00:00 neoplasm of colon Medical Ce nter (procedure) [code = 148158241] Future Scheduled 1970 Screening for malignant [facility] 00:00:00 neoplasm of colon Medical Ce nter (procedure) [code = 161024557] Future Scheduled 1970 Sigmoidoscopy [code = [facility] 00:[facility] S[facility]oidoscopy] Medical Cente r Future Scheduled 1970 CT Colonography (combo) [facility] 00:00:00 [code = CT Colonography [facility] ([facility])] Future Scheduled 1970 Screening for malignant [facility] 00:00:00 neoplasm of colon Medical Ce nter (procedure) [code = 474749944] Future Scheduled 1970 Screening for malignant [facility] 00:00:00 neoplasm of colon Medical Ce nter (procedure) [code = 635317138] Future Scheduled 1970 Sigmoidoscopy [code = [facility] 00:[facility] Sigmoidoscopy] Medical Cente r Future Scheduled 1970 CT Colonography (combo) [facility] 00:00:00 [code = CT Colonography [facility] (com[facility])] Future Scheduled 1970 Screening for malignant [facility] 00:00:00 neoplasm of colon Medical Ce nter (procedure) [code = 877388547] Future Scheduled 1970 Screening for malignant [facility] 00:00:00 neoplasm of colon Medical Ce nter (procedure) [code = 326344894] Future Scheduled 1970 Sigmoidoscopy [code = [facility] 00:[facility] S[facility]oscopy] Medical Cente r Future Scheduled 1970 CT Colonography (combo) [facility] 00:00:00 [code = CT Colonography [facility] (combo)] Future Scheduled 1970 Screening for malignant [facility] 00:00:00 neoplasm of colon Medical Ce nter (procedure) [code = 675138942] Future Scheduled 1970 Screening for malignant [facility] 00:00:00 neoplasm of colon Medical Ce nter (procedure) [code = 545900339] Future Scheduled 1970 Sigmoidoscopy [code = [facility] 00:[facility] Sigmoidoscopy] Medical Cente r Future Scheduled 1970 CT Colonography (combo) [facility] 00:00:00 [code = CT Colonography [facility] (combo)] Future Scheduled 1970 Screening for malignant [facility] 00:00:00 neoplasm of colon Medical Ce nter (procedure) [code = 020322024] Future Scheduled 1970 Screening for malignant [facility] 00:00:00 neoplasm of colon Medical Ce nter (procedure) [code = 962554894] Future Scheduled 1970 Sigmoidoscopy [code = [facility] 00:[facility] Sigmoidoscopy] Medical Cente r Future Scheduled 1970 CT Colonography (combo) [facility] 00:00:00 [code = CT Colonography [facility] (combo)] Encounters Start End Encounter Admission Attending Care Care Encounter Source Date/Time Date/Time Type Type Clinicians Facility Department ID 2020-02-23 Inpatient HCAPM LENNY [id number] [facility] 18:42:00 89 [facility] 2020-02-17 Inpatient EM Avtar, [facility] [id number] [facility] 00:22:00 Oladipo 75 [facility] 2020-01-05 Inpatient UR Perea, HCAPM MEDI.01 [id number] [facility] 20:23:00 Mark 40 [facility] 2019-12-13 Inpatient HCAMN JULIA [id number] [facility] 17:52:00 47 [facility] 2022-03-29 2022-03-29 Emergency EM White, HCACL AERS [id number] [facility] 14:26:00 16:45:00 Steve Adams [facility] 2022-03-29 2022-03-29 Emergency EM White, HCACL HC[facility]L [id number] [facility] 14:26:00 16:45:00 Steve 08819 [facility] 2022-03-25 2022-03-26 Inpatient E RICHARD [facility] MED [id number] BL 13:38:00 10:16:00 , YESSI 2022-03-15 2022-03-18 Emergency E RADHA [facility] [id number] [facility] 13:36:00 18:59:00 NELSON 2022-03-13 2022-03-13 Emergency [facility] [address] [id number] Lynne 15:33:00 20:25:00 [facility] 2022-03-13 2022-03-13 Outpatient RONALD, [facility] [id number] [place] 00:00:00 00:00:00 [facility] 2022-03-06 2022-03-09 [facility] [id number] [facility] 12:16:00 12:55:00 Encounter Dee Dee Montalvo Fang-Ying M edical Heinen, Allison P. [facility] León Bain Colin 2022-03-06 2022-03-09 Inpatient ER [facility]A [facility] Emergency [id number] [facility] 12:16:00 12:55:00 2022-03-06 2022-03-09 [facility] 1 [id number] [facility] 12:16:00 12:55:00 Encounter Dee Dee Montalvo Fang-Ying M edical Heinen, Allison P. [facility], León Shaw 2022-03-06 2022-03-06 Outpatient [facility] [id number] [facility] 00:00:00 23:59:00 Jennifer e of Medicin e 2022-03-06 2022-03-06 Orders [facility] [id number] 00:00:00 00:00:00 Only [facility] 2022-03-06 2022-03-06 Travel [facility] [id number] [facility] 00:[facility]:00 00:00:00 [facility] 2022-03-06 2022-03-06 Orders [facility] [id number] 00:00:00 00:00:00 Only [facility] 2022-03-06 2022-03-06 Travel [facility] [id number] [facility] 00:00:00 00:00:00 [facility] 2022-02-18 2022-02-20 Emergency Jamal Carbajald [facility] [address] [id number] [place] 13:58:00 11:55:00 [facility] Kobe Blake 2022-02-18 2022-02-18 [facility] [id number] [place] 15:19:05 15:23:18 [facility] 2022-02-18 2022-02-18 Outpatient 1 TEJAS [facility] [id number] [place] 13:58:00 13:58:00 [facility] 2022-02-18 2022-02-[address] [facility] [id number] [place] 00:00:00 00:00:00 , OSCAR blanchard 2022-02-07 2022-02-11 [facility] [id number] [place] 13:40:00 13:22:00 Encounter Meghan Islas [facility] eTresa Alves 2022-02-07 2022-02-07 Outpatient 1 MEGHAN ISLAS [facility] [id number] [place] 13:40:00 13:40:00 [facility] 2022-01-30 2022-01-30 Emergency EM Tara, [facility] [id number] [facility] 17:02:00 18:29:00 [facility] 2022-01-30 2022-01-30 Emergency EM Tara, [facility] [id number] [facility] 17:02:00 18:29:00 Dwain morgan [facility] 2022-01-22 2022-01-22 Emergency [facility] [address] [id number] [place] 17:24:00 20:39:00 [facility] 2022-01-16 2022-01-21 Emergency VeronicaRaymon meneses [facility] [address] [id number] [place] 11:04:00 18:08:00 Karin Bassett [facility] Craig, Steve Spain P 2022-01-19 2022-01-19 Outpatient [facility] [id number] [place] 12:34:08 13:29:31 [facility] 2022-01-16 2022-01-16 Outpatient [facility] [id number] [place] 19:42:28 20:01:28 [facility] 2022-01-16 2022-01-16 Outpatient 1 DANYELLE [facility] [id number] [place] 11:04:00 11:04:00 KARIN Daniels 2022-01-10 2022-01-11 Emergency BriannaBert [facility] [address] [id number] [place] 10:58:00 11:20:00 Helene Ring [facility] Merissa Richards 2022-01-10 2022-01-10 Outpatient 1 JUSTIN [facility] [id number] [place] 10:58:00 10:58:00 [facility] 2022-01-08 2022-01-09 Emergency [facility] [address] [id number] [place] 17:57:00 02:50:00 [facility] 2022-01-08 2022-01-08 Emergency [facility] [id number] [place] 21:40:34 21:50:19 [facility] 2021-09-23 2021-09-23 Emergency EM Amita Raffaele HC[facility] AERS [id number] [facility] 19:35:00 21:10:[address] [place] [address] 2021-09-13 2021-09-13 Emergency EM Raffaele Levi HCAC[facility] AERS [id number] [facility] 14:57:00 16:37:00 06 [facility] 2021-07-27 2021-07-27 Emergency EM Kateryna, HCAMN JULIA [id number] [facility] 10:15:00 12:36:00 Tarmars 17 [facility] 2021-07-22 2021-07-22 Emergency EM Marcelina, HCACL AERS [id number] [facility] 04:25:00 08:20:00 Gabriella Mar [facility] 2021-06-27 2021-06-27 Emergency EM White, HCACL AERS [id number] [facility] 15:31:00 17:37:00 Steve Pollard [facility] 2021-04-28 2021-05-01 Inpatient EM Aisha, HCACL [facility] [id number] [facility] 21:05:00 14:18:00 Christopher 03 [facility] 2020-02-24 2020-02-24 Outpatient Perea, HCACL LABO [id number] [facility] 07:51:00 07:51:00 Mark 96 [facility] 2020-02-18 2020-02-18 Outpatient Avtar HCACL LABO [id number] [facility] 00:26:00 00:26:00 Oladipo 05 [facility] 2020-01-05 2020-01-05 Outpatient Eliazar HC[facility]L [facility] [id number] [facility] 23:52:00 23:52:00 Mark 24 [facility] 2017-11-02 2017-11-02 Emergency E [facility] MED [id number] 08:33:00 08:33:00 [facility] 2017-08-05 2017-08-05 Outpatient [facility] [id number] [place] 00:00:00 00:00:00 [facility] 2017-07-28 2017-07-28 Outpatient [facility] [id number] [place] 00:00:00 00:00:00 [facility] 2017-06-24 2017-06-24 Outpatient [facility] [id number] [place] 00:00:00 00:00:00 [facility] 2017-06-22 2017-06-22 Emergency [facility] [id number] [place] 21:37:29 21:37:29 [facility] 2017-06-22 2017-06-22 Emergency [facility] [id number] [place] 21:06:00 21:06:00 [facility] 2017-06-22 2017-06-22 Outpatient [facility] [id number] [place] 10:02:31 10:02:31 Health 2017-06-09 2017-06-09 Outpatient [facility] [id number] [place] 00:00:00 00:00:00 Health 2017-06-09 2017-06-09 Outpatient [facility] [id number] [place] 00:00:00 00:00:00 [facility] 2017-05-08 2017-05-08 Emergency [facility] [address] MED [id number] [place] 01:04:44 01:04:44 [facility] 2017-05-05 2017-05-05 Emergency E [facility] MED [id number] 08:11:00 08:11:00 [facility] 2017-04-15 2017-04-15 Emergency E [facility] MED [id number] St[address] 09:53:00 09:53:00 [facility] 2017-04-14 2017-04-14 Outpatient [facility] [id number] [place] 13:31:02 13:31:02 Health Results Test Description Test [...] = MX#) 0.5 k/mm3 0.1-0.8 N TROPONIN-I [id number] 15:07:00 Test Item Value Reference Range Interpretation Comments TROPONIN-I RAPID 0.00 ng/mL 0.00-0.08 N Performed b y certified (test code = stitcher set up operator automatic at [facility] TROPIRAP) Ctr Negative: < = 0.08 [...] changes in trop onin levels characteristic of [place]. BASIC METABOLIC [id number] 14:56:00 Test Item Value Reference Range Interpretation [...] MG/DL 70-110 N - XR CHEST 1 [id number] 00:00:00 [facility] MARIA ISABEL JOSEPH : 1970 Sex: M FAX: Steve Urias MD [phone] [place]: [place] St: REG Name: MARIA ISABEL JOSEPH FSED : 1970 Age/S: 52/M [address] [facility] Unit #: [id number] Loc: [place] [address] Phys: Steve Urias MD Acct: [id number] Dis Date: Status: REG ER PHONE #: Exam Date: 03/29/2022 1507 FAX #: Reason: Weakness EXAMS: CPT CODE: [id number] XR CHEST 1 V 67641 PROCEDURE INFORMATION: Exam: XR Chest Exam date [...] By: [email or web address] Orig Print D/T: S: 03/29/2022 (7702) PAGE 1 Signed ReportHEPATIC FUNCTION [id number] 06:45:03 Test Item Value Reference Range Interpretation [...] (test code = 13 U/L 6-55 347) Machine Bunch Maker ID - ERWIN WBASIC METABOLIC [id number] 06:45:02 Test Item Value Reference Range Interpretation [...] S NOT APPLICABLE FOR DIALYSIS PATIEN TS. Machine Bunch Maker ID - ERWIN WCBC W/PLT COUNT & AUTO [id number] 06:26:54 Test Item Value Reference Range Interpretation [...] (BEAKER) (test code = 2801) U/S, RENAL, [id number] 19:23:00Reason for exam:->acute kidney injury [facility] 1970 Sex: [...] SARS-Co V-2 (test code = target nucleic 13987-7) acids are not detected in thi s [...] revoked sooner. Fact Sheet for Healthcare Providers: https://www.madKast/Documents/Xp ert%20Xpress%20SAR S%20CoV-2/Fact%20S heets/302-3802%20S ARS-COV-2%20HEALTH CARE%20PROVIDERS%2 0FACT%20SHEET.pdf Fact Sheet for Healthcare Patients: https://www.madKast/Documents/Xp ert%20Xpress%20SAR S%20CoV-2/Fact%20S heets/302-3801%20S ARS-COV-2%20PATIEN T%20FACT%20SHEET.p df Lab Interpretation Normal (test code = 87998-2) [facility]2022-03-06 19:17:07 Test Item Value Reference Interpretation Comments Range SARS-COV2/RT-PCR Negative Negative The SARS-Co V-2 (test code = target nucleic 89740-6) acids are not detected in thi s [...] revoked sooner. Fact Sheet for Healthcare Providers: https://www.madKast/Documents/Xp ert%20Xpress%20SAR S%20CoV-2/Fact%20S heets/302-3802%20S ARS-COV-2%20HEALTH CARE%20PROVIDERS%2 0FACT%20SHEET.pdf Fact Sheet for Healthcare Patients: https://wwwNext Generation Systems/Documents/Xp ert%20Xpress%20SAR S%20CoV-2/Fact%20S heets/302-3801%20S ARS-COV-2%20PATIEN T%20FACT%20SHEET.p df Lab Interpretation Normal (test code = 58230-5) [facility]Asymptomatic ONLY)2022-03-06 19:17:07 Test Item Value Reference Interpretation Comments Range SARS-COV2/RT-PCR Negative Negative The SARS-Co V-2 (test code = target nucleic 28847-1) acids are not detected in thi s [...] revoked sooner. Fact Sheet for Healthcare Providers: https://www.madKast/Documents/Xp ert%20Xpress%20SAR S%20CoV-2/Fact%20S heets/302-3802%20S ARS-COV-2%20HEALTH CARE%20PROVIDERS%2 0FACT%20SHEET.pdf Fact Sheet for Healthcare Patients: https://wwwNext Generation Systems/Documents/Xp ert%20Xpress%20SAR S%20CoV-2/Fact%20S heets/302-3801%20S ARS-COV-2%20PATIEN T%20FACT%20SHEET.p df Lab Interpretation Normal (test code = 00106-8) [facility]Asymptomatic ONLY)2022-03-06 19:17:07 Test Item Value Reference Interpretation Comments Range SARS-COV2/RT-PCR Negative Negative The SARS-Co V-2 (test code = target nucleic 25884-3) acids are not detected in thi s [...] revoked sooner. Fact Sheet for Healthcare Providers: https://www.madKast/Documents/Xp ert%20Xpress%20SAR S%20CoV-2/Fact%20S heets/302-3802%20S ARS-COV-2%20HEALTH CARE%20PROVIDERS%2 0FACT%20SHEET.pdf Fact Sheet for Healthcare Patients: https://wwwNext Generation Systems/Documents/Xp ert%20Xpress%20SAR S%20CoV-2/Fact%20S heets/302-3801%20S ARS-COV-2%20PATIEN T%20FACT%20SHEET.p df Lab Interpretation Normal (test code = 64605-0) [facility]Asymptomatic ONLY)2022-03-06 19:17:07 Test Item Value Reference Interpretation Comments Range SARS-COV2/RT-PCR Negative Negative The SARS-Co V-2 (test code = target nucleic 95292-9) acids are not detected in thi s [...] revoked sooner. Fact Sheet for Healthcare Providers: https://www.madKast/Documents/Xp ert%20Xpress%20SAR S%20CoV-2/Fact%20S heets/302-3802%20S ARS-COV-2%20HEALTH CARE%20PROVIDERS%2 0FACT%20SHEET.pdf Fact Sheet for Healthcare Patients: https://www.madKast/Documents/Xp ert%20Xpress%20SAR S%20CoV-2/Fact%20S heets/302-3801%20S ARS-COV-2%20PATIEN T%20FACT%20SHEET.p df Lab Interpretation Normal (test code = 00850-2) [facility] (Asymptomatic ONLY)2022-03-06 19:17:07 Test Item Value Reference Interpretation Comments Range SARS-COV2/RT-PCR Negative Negative The SARS-Co V-2 (test code = target nucleic 61330-5) acids are not detected in thi s [...] revoked sooner. Fact Sheet for Healthcare Providers: https://www.madKast/Documents/Xp ert%20Xpress%20SAR S%20CoV-2/Fact%20S heets/302-3802%20S ARS-COV-2%20HEALTH CARE%20PROVIDERS%2 0FACT%20SHEET.pdf Fact Sheet for Healthcare Patients: https://www.madKast/Documents/Xp ert%20Xpress%20SAR S%20CoV-2/Fact%20S heets/302-3801%20S ARS-COV-2%20PATIEN T%20FACT%20SHEET.p df Lab Interpretation Normal (test code = 00236-7) [facility]Asymptomatic ONLY)2022-03-06 19:17:07 Test Item Value Reference Interpretation Comments Range SARS-COV2/RT-PCR Negative Negative The SARS-Co V-2 (test code = target nucleic 95811-4) acids are not detected in thi s [...] revoked sooner. Fact Sheet for Healthcare Providers: https://www.madKast/Documents/Xp ert%20Xpress%20SAR S%20CoV-2/Fact%20S heets/302-3802%20S ARS-COV-2%20HEALTH CARE%20PROVIDERS%2 0FACT%20SHEET.pdf Fact Sheet for Healthcare Patients: https://www.madK[employer]/Documents/Xp ert%20Xpress%20SAR S%20CoV-2/Fact%20S heets/302-3801%20S ARS-COV-2%20PATIEN T%20FACT%20SHEET.p df Lab Interpretation Normal (test code = 55708-2) [facility]Asymptomatic ONLY)2022-03-06 19:17:07 Test Item Value Reference Interpretation Comments Range SARS-COV2/RT-PCR Negative Negative The SARS-Co V-2 (test code = target nucleic 43683-3) acids are not detected in thi s [...] om SARS-CoV-2 in a [facility]ab [facility] suspected of COVID-19 [...] revoked sooner. Fact Sheet for Healthcare Providers: https://www.madKast/Documents/Xp ert%20Xpress%20SAR S%20CoV-2/Fact%20S heets/302-3802%20S ARS-COV-2%20HEALTH CARE%20PROVIDERS%2 0FACT%20SHEET.pdf Fact Sheet for Healthcare Patients: https://www.madKast/Documents/Xp ert%20Xpress%20SAR S%20CoV-2/Fact%20S heets/302-3801%20S ARS-COV-2%20PATIEN T%20FACT%20SHEET.p df Lab Interpretation Normal (test code = 21072-9) [facility]Asymptomatic ONLY)2022-03-06 19:17:07 Test Item Value Reference Interpretation Comments Range SARS-COV2/RT-PCR Negative Negative The SARS-Co V-2 (test code = target nucleic 19370-8) acids are not detected in thi s [...] revoked sooner. Fact Sheet for Healthcare Providers: https://www.madKast/Documents/Xp ert%20Xpress%20SAR S%20CoV-2/Fact%20S heets/302-3802%20S ARS-COV-2%20HEALTH CARE%20PROVIDERS%2 0FACT%20SHEET.pdf Fact Sheet for Healthcare Patients: https://www.madK[employer]/Documents/Xp ert%20Xpress%20SAR S%20CoV-2/Fact%20S heets/302-3801%20S ARS-COV-2%20PATIEN T%20FACT%20SHEET.p df Lab Interpretation Normal (test code = 07422-9) [facility]-06 19:17:07 Test Item Value Reference Interpretation Comments Range SARS-COV2/RT-PCR Negative Negative The SARS-Co V-2 (test code = target nucleic 57875-5) acids are not detected in thi s [...] revoked sooner. Fact Sheet for Healthcare Providers: https://www.madK[employer]/Documents/Xp ert%20Xpress%20SAR S%20CoV-2/Fact%20S heets/302-3802%20S ARS-COV-2%20HEALTH CARE%20PROVIDERS%2 0FACT%20SHEET.pdf Fact Sheet for Healthcare Patients: https://www.madK[employer]/Documents/Xp ert%20Xpress%20SAR S%20CoV-2/Fact%20S heets/302-3801%20S ARS-COV-2%20PATIEN T%20FACT%20SHEET.p df Lab Interpretation Normal (test code = 56652-2) [facility]2022-03-06 19:17:07 Test Item Value Reference Interpretation Comments Range SARS-COV2/RT-PCR Negative Negative The SARS-Co V-2 (test code = target nucleic 92726-0) acids are not detected in thi s [...] revoked sooner. Fact Sheet for Healthcare Providers: https://www.madKast/Documents/Xp ert%20Xpress%20SAR S%20CoV-2/Fact%20S heets/3023802%20S ARS-COV-2%20HEALTH CARE%20PROVIDERS%2 0FACT%20SHEET.pdf Fact Sheet for Healthcare Patients: https://www.madK[employer]/Documents/Xp ert%20Xpress%20SAR S%20CoV-2/Fact%20S heets/302-3801%20S ARS-COV-2%20PATIEN T%20FACT%20SHEET.p df Lab Interpretation Normal (test code = 79632-5) [facility] [place]2022-03-06 19:17:07 Test Item Value Reference Interpretation Comments Range SARS-COV2/RT-PCR Negative Negative The SARS-Co V-2 (test code = target nucleic 23905-1) acids are not detected in thi s [...] revoked sooner. Fact Sheet for Healthcare Providers: https://www.madK[employer]/Documents/Xp ert%20Xpress%20SAR S%20CoV-2/Fact%20S heets/302-3802%20S ARS-COV-2%20HEALTH CARE%20PROVIDERS%2 0FACT%20SHEET.pdf Fact Sheet for Healthcare Patients: https://www.madK[employer]/Documents/Xp ert%20Xpress%20SAR S%20CoV-2/Fact%20S heets/302-3801%20S ARS-COV-2%20PATIEN T%20FACT%20SHEET.p df Lab Interpretation Normal (test code = 89583-6) [facility] [place]2022-03-06 19:17:07 Test Item Value Reference Interpretation Comments Range SARS-COV2/RT-PCR Negative Negative The SARS-Co V-2 (test code = target nucleic 82276-0) acids are not detected in thi s [...] revoked sooner. Fact Sheet for Healthcare Providers: https://www.madK[employer]/Documents/Xp ert%20Xpress%20SAR S%20CoV-2/Fact%20S heets/3023802%20S ARS-COV-2%20HEALTH CARE%20PROVIDERS%2 0FACT%20SHEET.pdf Fact Sheet for Healthcare Patients: https://www.madK[employer]/Documents/Xp ert%20Xpress%20SAR S%20CoV-2/Fact%20S heets/3023801%20S ARS-COV-2%20PATIEN T%20FACT%20SHEET.p df Lab Interpretation Normal (test code = 59172-8) [facility]2022-03-06 19:17:07 Test Item Value Reference Interpretation Comments Range SARS-COV2/RT-PCR Negative Negative The SARS-Co V-2 (test code = target nucleic 27199-1) acids are not detected in thi s [...] revoked sooner. Fact Sheet for Healthcare Providers: https://www.madK[employer]/Documents/Xp ert%20Xpress%20SAR S%20CoV-2/Fact%20S heets/302-3802%20S ARS-COV-2%20HEALTH CARE%20PROVIDERS%2 0FACT%20SHEET.pdf Fact Sheet for Healthcare Patients: https://www.madK[employer]/Documents/Xp ert%20Xpress%20SAR S%20CoV-2/Fact%20S heets/302-3801%20S ARS-COV-2%20PATIEN T%20FACT%20SHEET.p df Lab Interpretation Normal (test code = 46022-3) [facility] [place]omatic ONLY[facility]2022-03-06 19:17:07 Test Item Value Reference Interpretation Comments Range SARS-COV2/RT-PCR Negative Negative The SARS-Co V-2 (test code = target nucleic 67954-5) acids are not detected in thi s [...] revoked sooner. Fact Sheet for Healthcare Providers: https://www.madK[employer]/Documents/Xp ert%20Xpress%20SAR S%20CoV-2/Fact%20S heets/302-3802%20S ARS-COV-2%20HEALTH CARE%20PROVIDERS%2 0FACT%20SHEET.pdf Fact Sheet for Healthcare Patients: https://www.madK[employer]/Documents/Xp ert%20Xpress%20SAR S%20CoV-2/Fact%20S heets/302-3801%20S ARS-COV-2%20PATIEN T%20FACT%20SHEET.p df Lab Interpretation Normal (test code = 12868-6) [facility] [place] ONLY[facility]2022-03-06 19:17:07 Test Item Value Reference Interpretation Comments Range SARS-COV2/RT-PCR Negative Negative The SARS-Co V-2 (test code = target nucleic 54908-3) acids are not detected in thi s [...] revoked sooner. Fact Sheet for Healthcare Providers: https://www.madKast/Documents/Xp ert%20Xpress%20SAR S%20CoV-2/Fact%20S heets/302-3802%20S ARS-COV-2%20HEALTH CARE%20PROVIDERS%2 0FACT%20SHEET.pdf Fact Sheet for Healthcare Patients: https://www.madK[employer]/Documents/Xp ert%20Xpress%20SAR S%20CoV-2/Fact%20S heets/302-3801%20S ARS-COV-2%20PATIEN T%20FACT%20SHEET.p df Lab Interpretation Normal (test code = 53890-5) [facility] [place])2022-03-06 19:17:07 Test Item Value Reference Range Interpretation Comments SARS-COV2/RT-PCR Negative Negative The SARS-Co V-2 target (test code = nucleic acids a re not 6816429) detected in thi s specimen. Negative result [...] revoked sooner. Fact Sheet for Healthcare Providers: https://www.[employer]/Documents/Xpert%20Xpress%20SARS%20CoV-2/Fact%20Sheets/302-3802%47FOTI-AFS-0%20 HEALTHCARE%20PROVIDERS%20FACT%20SHEET.pdf Fact Sheet for Healthcare Patients: https://www.[employer]/Documents/Xpert%20Xp ress%20SARS%20CoV-2/Fact%20Sheets/302-3801%67PAHP-YDJ-2%20PATIENT%20FACT%20SHEET .pdfCREATINE KINASE (CK)2022-03-06 16:19:14 Test Item Value Reference Range Interpretation Comments CREATINE KINASE TOTAL (BEAKER) (test 141 U/L 29-200 code = 380) Machine Bunch Maker ID - BST4, [id number] 15:13:16 Test Item Value Reference Range Interpretation Comments FREE T4 (BEAKER) (test code = 655) 0.95 ng/dL 0.70-1.48 Machine Bunch Maker ID - BSTSH/FREE T4 IF [id number] 15:13:16 Test Item Value Reference Range Interpretation Comments THYROID STIMULATING HORMONE 2.060 uIU/mL 0.350-4.940 (BEAKER) (test code = 772) Machine Bunch Maker ID - BSB-TYPE NATRIURETIC FACTOR (BNP)2022-03-06 14:26:30 Test Item Value Reference Range Interpretation Comments B-TYPE NATRIURETIC PEPTIDE (BEAKER) < pg/mL 0-100 (test code = 700) Machine Bunch Maker ID - JSHIGH SENSITIVITY TROPONIN [id number] 14:14:54 Test Item Value Reference Range Interpretation Comments HIGH SENSITIVITY < pg/ml See_Comment [Automated message] TROPONIN I (test code = The system which 9712358) generated this result transmitted ref erence range: <=35. Th e reference range was not used to interpr et this result as normal/abnormal . Machine Bunch Maker ID - JSThe FUNDRAISING MANAGER STAT High Sensitivity Troponin-I results should be used in conjunctionwith other diagnostic information such as ECG, clinical observations and information, and patient symptoms to aid in the diagnosis of LA.RAD, CHEST, 1 VIEW, NON [id number] 14:10:00Reason for exam:- >NEUROLOGIC PROBLEMShould this be performed at the bedside?->Yes [facility] 1970 Sex: MFINAL [...] Brown Verified Date/Time: 03/06/2022 14:10:44 REHENSIVE METABOLIC [id number] 14:08:22 Test Item Value Reference Range Interpretation [...] S NOT APPLICABLE FOR DIALYSIS PATIEN TS. Machine Bunch Maker ID - [id number] 14:07:49 Test Item Value Reference Range Interpretation Comments MAGNESIUM (BEAKER) (test code = 2.0 mg/dL 1.6-2.6 627) Machine Bunch Maker ID - [id number] 14:07:49 Test Item Value Reference Range Interpretation Comments PHOSPHORUS (BEAKER) (test code = 5.6 mg/dL 2.3-4.7 H 604) Machine Bunch Maker ID - JSLACTIC ACID, [id number] 13:51:04 Test Item Value Reference Range Interpretation Comments LACTATE BLOOD VENOUS 1.32 mmol/L 0.50-2.20 Specime n slightly (2) (BEAKER) (test hemolyzed code = 3842) Machine Bunch Maker ID - JSCBC W/PLT COUNT & AUTO [id number] 13:47:24 Test Item Value Reference Range Interpretation [...] (BEAKER) (test code = 2801) Coronavirus, CoVID-19, [id number] 01:07:20 Test Item Value Reference Range Interpretation Comments COVID-19 (SARS-COV-2) Not Detected Not Detected INTERP RETATION: No (test code = 85097-9) detect able levels of SARS-CoV-2 Coronavirus (COVID-19) [...] SARS-CoV-2 mole cular diagnostic assa y utilizes [employer] Mediated Amplification ( TMA) technology to r apidly detect the SARS -CoV-2 (COVID-19) viru s from respiratory adriana ples. In accordance w ith the FDA's kamran nce document "Polic y for Diagnostic Test s for Coronavirus Disease-2019 du ring the [facility]", thi s test was developed, and its performance characteristics were verified by the [facility] molecular diagn ostics laboratory and is authorized for clinical diagno stic use. This labor atory is certified un est[place]an the Clinical Laboratory Improvement Amendments (CLI A) as qualified to pe rform high complexity clinical labora tory testing. Lab Interpretation Normal (test code = 29924-2) [facility] [id number] 01:07:20 Test Item Value Reference Range Interpretation Comments COVID-19 (SARS-COV-2) Not Detected Not Detected INTERP RETATION: No (test code = 16195-3) detect able levels of SARS-CoV-2 Coronavirus (COVID-19) [...] SARS-CoV-2 mole cular diagnostic assa y utilizes [employer] Mediated Amplification ( TMA) technology to r apidly detect the SARS -CoV-2 (COVID-19) viru s from respiratory adriana ples. In accordance w ith the FDA's kamran nce document "Polic y for Diagnostic Test s for Coronavirus Disease-2019 [facility] Emergency", thi s test was developed, and its performance characteristics were verified by the [facility] molecular diagn ostics laboratory and is authorized for clinical diagno stic use. This labor atory is certified un [place] the Clinical Laboratory Improvement Amendments (CLI A) as qualified to pe rform high complexity clinical labora tory testing. Lab Interpretation Normal (test code = 50307-1) Maged Ruelasronavirus, CoVID-19, [id number] 01:07:20 Test Item Value Reference Range Interpretation Comments COVID-19 (SARS-COV-2) Not Detected Not Detected INTERP RETATION: No (test code = 11374-6) detect able levels of SARS-CoV-2 Coronavirus (COVID-19) [...] SARS-CoV-2 mole cular diagnostic assa y utilizes [employer] Mediated Amplification ( TMA) technology to r apidly detect the SARS -CoV-2 (COVID-19) viru s from respiratory adriana ples. In accordance w ith the FDA's kamran nce document "Polic y for Diagnostic Test s for Coronavirus Disease-2019 [facility] Emergency", thi s test was developed, and its performance characteristics were verified by the [facility] molecular diagn ostics laboratory and is authorized for clinical diagno stic use. This labor atory is certified un est[place] the Clinical Laboratory Improvement Amendments (CLI A) as qualified to pe rform high complexity clinical labora tory testing. Lab Interpretation Normal (test code = 07590-4) [facility], [id number] 01:07:20 Test Item Value Reference Range Interpretation Comments COVID-19 (SARS-COV-2) Not Detected Not Detected INTERP RETATION: No (test code = 85366-2) detect able levels of SARS-CoV-2 Coronavirus (COVID-19) [...] SARS-CoV-2 mole cular diagnostic assa y utilizes [employer] Mediated Amplification ( TMA) technology to r apidly detect the SARS -CoV-2 (COVID-19) viru s from respiratory adriana ples. In accordance w ith the FDA's kamran nce document "Polic y for Diagnostic Test s for Coronavirus Disease-2019 [facility] Emergency", thi s test was developed, and its performance characteristics were verified by the [facility] molecular diagn ostics laboratory and is authorized for clinical diagno stic use. This labor atory is certified un est[place] the Clinical Laboratory Improvement Amendments (CLI A) as qualified [facility] high complexity clinical labora tory testing. Lab Interpretation Normal (test code = 73922-0) [facility], [id number] 01:07:20 Test Item Value Reference Range Interpretation Comments COVID-19 (SARS-COV-2) Not Detected Not Detected INTERP RETATION: No (test code = 66037-7) detect able levels of SARS-CoV-2 Coronavirus (COVID-19) [...] SARS-CoV-2 mole cular diagnostic assa y utilizes [employer] Mediated Amplification ( TMA) technology to r apidly detect the SARS -CoV-2 (COVID-19) viru s from respiratory adriana ples. In accordance w ith the FDA's kamran nce document "Polic y for Diagnostic Test s for Coronavirus Disease-2019 [facility] Emergency", thi s test was developed, and its performance characteristics were verified by the [facility] molecular diagn ostics laboratory and is authorized for clinical diagno stic use. This labor atory is certified un est[place] the Clinical Laboratory Improvement Amendments (CLI A) as qualified to pe rform high complexity clinical labora tory testing. Lab Interpretation Normal (test code = 88599-6) Lynne Surajronavirus, CoVID-19, [id number] 01:07:20 Test Item Value Reference Range Interpretation Comments COVID-19 (SARS-COV-2) Not Detected Not Detected INTERP RETATION: No (test code = 67026-2) detect able levels of SARS-CoV-2 Coronavirus (COVID-19) [...] SARS-CoV-2 mole cular diagnostic assa y utilizes [employer] Mediated Amplification ( TMA) technology to r apidly detect the SARS -CoV-2 (COVID-19) viru s from respiratory adriana ples. In accordance w ith the FDA's kamran nce document "Polic y for Diagnostic Test s for Coronavirus Disease-2019 du ring the Public [facility] Emergency", thi s test was developed, and its performance characteristics were verified by the [facility] molecular diagn ostics laboratory and is authorized for clinical diagno stic use. This labor atory is certified un [place] the Clinical Laboratory Improvement Amendments (CLI A) as qualified to pe rform high complexity clinical labora tory testing. Lab Interpretation Normal (test code = 71389-5) [place] Surajronavirus, CoVID-19, [id number] 01:07:20 Test Item Value Reference Range Interpretation Comments COVID-19 (SARS-COV-2) Not Detected Not Detected INTERP RETATION: No (test code = 93025-8) detect able levels of SARS-CoV-2 Coronavirus (COVID-19) [...] SARS-CoV-2 mole cular diagnostic assa y utilizes [employer] Mediated Amplification ( TMA) technology to r apidly detect the SARS -CoV-2 (COVID-19) viru s from respiratory adriana ples. In accordance w ith the FDA's kamran nce document "Polic y for Diagnostic Test s for Coronavirus Disease-2019 du ring the Public [facility] Emergency", thi s test was developed, and its performance characteristics were verified by the [facility] molecular diagn ostics laboratory and is authorized for clinical diagno stic use. This labor atory is certified un est[place] the Clinical Laboratory Improvement Amendments (CLI A) as qualified to pe rform high complexity clinical labora tory testing. Lab Interpretation Normal (test code = 03443-0) [facility], [id number] 01:07:20 Test Item Value Reference Range Interpretation Comments COVID-19 (SARS-COV-2) Not Detected Not Detected INTERP RETATION: No (test code = 64438-0) detect able levels of SARS-CoV-2 Coronavirus (COVID-19) [...] SARS-CoV-2 mole cular diagnostic assa y utilizes [employer] Mediated Amplification ( TMA) technology to r apidly detect the SARS -CoV-2 (COVID-19) viru s from respiratory adriana ples. In accordance w ith the FDA's kamran nce document "Polic y for Diagnostic Test s for Coronavirus Disease-2019 [facility] Emergency", thi s test was developed, and its performance characteristics were verified by the [facility] molecular diagn ostics laboratory and is authorized for clinical diagno stic use. This labor atory is certified un [place] the Clinical Laboratory Improvement Amendments (CLI A) as qualified to pe rform high complexity clinical labora tory testing. Lab Interpretation Normal (test code = 98903-0) [facility], [id number] 01:07:20 Test Item Value Reference Range Interpretation Comments COVID-19 (SARS-COV-2) Not Detected Not Detected INTERP RETATION: No (test code = 14574-4) detect able levels of SARS-CoV-2 Coronavirus (COVID-19) [...] SARS-CoV-2 mole cular diagnostic assa y utilizes [employer] Mediated Amplification ( TMA) technology to r apidly detect the SARS -CoV-2 (COVID-19) viru s from respiratory adriana ples. In accordance w ith the FDA's kamran nce document "Polic y for Diagnostic Test s for Coronavirus Disease-2019 du ring the Public [facility] Emergency", thi s test was developed, and its performance characteristics were verified by the [facility] molecular diagn ostics laboratory and is authorized for clinical diagno stic use. This labor atory is certified un est[place] the Clinical Laboratory Improvement Amendments (CLI A) as qualified to pe rform high complexity clinical labora tory testing. Lab Interpretation Normal (test code = 68179-5) Maged Aaronavirus, CoVID-19, [id number] 01:07:20 Test Item Value Reference Range Interpretation Comments COVID-19 (SARS-COV-2) Not Detected Not Detected INTERP RETATION: No (test code = 65193-1) detect able levels of SARS-CoV-2 Coronavirus (COVID-19) [...] SARS-CoV-2 mole cular diagnostic assa y utilizes [employer] Mediated Amplification ( TMA) technology to r apidly detect the SARS -CoV-2 (COVID-19) viru s from respiratory adriana ples. In accordance w ith the FDA's kamran nce document "Polic y for Diagnostic Test s for Coronavirus Disease-2019 du ring the [facility]", thi s test was developed, and its performance characteristics were verified by the [facility] molecular diagn ostics laboratory and is authorized for clinical diagno stic use. This labor atory is certified un est[place]an the Clinical Laboratory Improvement Amendments (CLI A) as qualified to pe rform high complexity clinical labora tory testing. Lab Interpretation Normal (test code = 52784-3) Maged Aaronavirus, CoVID-19, [id number] 01:07:20 Test Item Value Reference Range Interpretation Comments COVID-19 (SARS-COV-2) Not Detected Not Detected INTERP RETATION: No (test code = 66957-4) detect able levels of SARS-CoV-2 Coronavirus (COVID-19) [...] SARS-CoV-2 mole cular diagnostic assa y utilizes [employer] Mediated Amplification ( TMA) technology to r apidly detect the SARS -CoV-2 (COVID-19) viru s from respiratory adriana ples. In accordance w ith the FDA's kamran nce document "Polic y for Diagnostic Test s for Coronavirus Disease-2018 [facility] Emergency", thi s test was developed, and its performance characteristics were verified by the [facility] molecular diagn ostics laboratory and is authorized for clinical diagno stic use. This labor atory is certified un estevan the Clinical Laboratory Improvement Amendments (CLI A) as qualified to pe rform high complexity clinical labora tory testing. Lab Interpretation Normal (test code = 41776-4) [facility], [id number] 01:07:20 Test Item Value Reference Range Interpretation Comments COVID-19 (SARS-COV-2) Not Detected Not Detected INTERP RETATION: No (test code = 14727-0) detect able levels of SARS-CoV-2 Coronavirus (COVID-19) [...] SARS-CoV-2 mole cular diagnostic assa y utilizes [employer] Mediated Amplification ( TMA) technology to r apidly detect the SARS -CoV-2 (COVID-19) viru s from respiratory adriana ples. In accordance w ith the FDA's kamran nce document "Polic y for Diagnostic Test s for Coronavirus Disease-2019 [facility]", thi s test was developed, and its performance characteristics were verified by the [facility] molecular diagn ostics laboratory and is authorized for clinical diagno stic use. This labor atory is certified un estevan the Clinical Laboratory Improvement Amendments (CLI A) as qualified to pe rform high complexity clinical labora tory testing. Lab Interpretation Normal (test code = 81613-5) [facility], [id number] 01:07:20 Test Item Value Reference Range Interpretation Comments COVID-19 (SARS-COV-2) Not Detected Not Detected INTERP RETATION: No (test code = 73810-0) detect able levels of SARS-CoV-2 Coronavirus (COVID-19) [...] SARS-CoV-2 mole cular diagnostic assa y utilizes [employer] Mediated Amplification ( TMA) technology to r apidly detect the SARS -CoV-2 (COVID-19) viru s from respiratory adriana ples. In accordance w ith the FDA's kamran nce document "Polic y for Diagnostic Test s for Coronavirus Disease-2019 [facility] Emergency", thi s test was developed, and its performance characteristics were verified by the [facility] molecular diagn ostics laboratory and is authorized for clinical diagno stic use. This labor atory is certified un estevan the Clinical Laboratory Improvement Amendments (CLI A) as qualified to pe rform high complexity clinical labora tory testing. Lab Interpretation Normal (test code = 37022-3) [place] KandiCoronavirus, CoVID-19, [id number] 01:07:20 Test Item Value Reference Range Interpretation Comments COVID-19 (SARS-COV-2) Not Detected Not Detected INTERP RETATION: No (test code = 10830-2) detect able levels of SARS-CoV-2 Coronavirus (COVID-19) [...] SARS-CoV-2 mole cular diagnostic assa y utilizes [employer] Mediated Amplification ( TMA) technology to r apidly detect the SARS -CoV-2 (COVID-19) viru s from respiratory adriana ples. In accordance w ith the FDA's kamran nce document "Polic y for Diagnostic Test s for Coronavirus Disease-2019 du ring the [facility]", thi s test was developed, and its performance characteristics were verified by the [facility] molecular diagn ostics laboratory and is authorized for clinical diagno stic use. This labor atory is certified un estevan the Clinical Laboratory Improvement Amendments (CLI A) as qualified to pe rform high complexity clinical labora tory testing. Lab Interpretation Normal (test code = 97460-2) [facility], [id number] 01:07:20 Test Item Value Reference Range Interpretation Comments COVID-19 (SARS-COV-2) Not Detected Not Detected INTERP RETATION: No (test code = 60077-4) detect able levels of SARS-CoV-2 Coronavirus (COVID-19) [...] SARS-CoV-2 mole cular diagnostic assa y utilizes [employer] Mediated Amplification ( TMA) technology to r apidly detect the SARS -CoV-2 (COVID-19) viru s from respiratory adriana ples. In accordance w ith the FDA's kamran nce document "Polic y for Diagnostic Test s for Coronavirus Disease-2019 [facility] Emergency", thi s test was developed, and its performance characteristics were verified by the [facility] diagn ostics laboratory and is authorized for clinical diagno stic use. This labor atory is certified un [place] the Clinical Laboratory Improvement Amendments (CLI A) as qualified to pe rform high complexity clinical labora tory testing. Lab Interpretation Normal (test code = 93297-2) [facility] CenterAjbjblPVWM-AtW-2 ORF1ab Resp Ql OLENA+qoqcg3996-62-78 01:07:20 Test Item Value Reference Range Interpretation Comments Hospitalized? (test No code = 27591-8) ICU? (test code = No 05113-8) Symptomatic as No defined by CDC? (test code = 07064-9) Employed in No Healthcare? (test code = 22763-5) Resident in a No congregate care setting (including nursing homes, residential care for people with intellectual and developmental disabilities, psychiatric treatment facilities, group homes, board and care homes, homeless mcfp, foster care or other): (test code = 10027-5) SARS-CoV-2 ORF1ab NOT DETECTED Not Detected INTERPRETA TION: No Resp Ql OLENA+probe detectable levels of (test code = SARS-CoV-2 76594-6) Coronavirus (COVID-19) were present in this patient's [...] SARS-CoV-2 mole cular diagnostic assa y utilizes [employer] Mediated Amplification ( TMA) technology to r apidly detect the SARS -CoV-2 (COVID-19) viru s from respiratory adriana ples. In accordance with\\XC2A0\\the FDA's guidance docume nt "Policy for Diagnostic Test s for Coronavirus Disease-2019 du [facility] the [facility] Emergency", ginger s test was developed, and its performance characteristics were verified by the [facility] molecular diagn ostics laboratory and is authorized for clinical diagno stic use. \\XC2A0\\Thi s laboratory is certified under the Clinical Labora tory Improvement Amendments (CLI A) as qualified to pe rform high complexity clinical labora tory testing. [facility] GL[facility] docked rskgxf6610-19-73 08:09:01 Test Item Value Reference Range Interpretation Comments Glucose POC (test code = 38006988) 85 mg/dL 74-106 Lab Interpretation (test code = Normal 21861-0) [facility] GLUCOSE POC docked lwtftx8661-34-34 08:09:01 Test Item Value Reference Range Interpretation Comments Glucose POC (test code = 30388291) 85 mg/dL 74-106 Lab Interpretation (test code = Normal 04453-3) [facility] GLUCOSE POC docked pfvkth3575-51-88 08:09:01 Test Item Value Reference Range Interpretation Comments Glucose POC (test code = 10544469) 85 mg/dL 74-106 Lab Interpretation (test code = Normal 52306-2) [facility] GLUCOSE POC docked aqdrwn6949-32-18 08:09:01 Test Item Value Reference Range Interpretation Comments Glucose POC (test code = 51658002) 85 mg/dL 74-106 Lab Interpretation (test code = Normal 03660-2) [facility] saqdex7539-19-22 08:09:01 Test Item Value Reference Range Interpretation Comments Glucose POC (test code = 66046898) 85 mg/dL 74-106 Lab Interpretation (test code = Normal 18103-2) [facility] sjragi8859-00-81 08:09:01 Test Item Value Reference Range Interpretation Comments Glucose POC (test code = 53383200) 85 mg/dL 74-106 Lab Interpretation (test code = Normal 18091-4) [facility] jwujzw3609-84-91 08:09:01 Test Item Value Reference Range Interpretation Comments Glucose POC (test code = 95867982) 85 mg/dL 74-106 Lab Interpretation (test code = Normal 96333-7) [facility] hgnbdr0477-76-54 08:09:01 Test Item Value Reference Range Interpretation Comments Glucose POC (test code = 46159715) 85 mg/dL 74-106 Lab Interpretation (test code = Normal 58999-5) [facility] wuhztp7435-14-93 08:09:01 Test Item Value Reference Range Interpretation Comments Glucose POC (test code = 90864642) 85 mg/dL 74-106 Lab Interpretation (test code = Normal 74140-0) [facility] nfqvzz2274-39-40 08:09:01 Test Item Value Reference Range Interpretation Comments Glucose POC (test code = 57078989) 85 mg/dL 74-106 Lab Interpretation (test code = Normal 18216-7) [facility] bdnfhm4534-88-53 08:09:01 Test Item Value Reference Range Interpretation Comments Glucose POC (test code = 21095487) 85 mg/dL 74-106 Lab Interpretation (test code = Normal 46693-6) [facility] dwgsms4601-40-75 08:09:01 Test Item Value Reference Range Interpretation Comments Glucose POC (test code = 60250139) 85 mg/dL 74-106 Lab Interpretation (test code = Normal 72841-8) [facility] pgmqia1584-75-43 08:09:01 Test Item Value Reference Range Interpretation Comments Glucose POC (test code = 89683223) 85 mg/dL 74-106 Lab Interpretation (test code = Normal 72873-4) [facility] wrdevb3320-31-56 08:09:01 Test Item Value Reference Range Interpretation Comments Glucose POC (test code = 64759704) 85 mg/dL 74-106 Lab Interpretation (test code = Normal 03212-6) [facility] ehsgdk8999-10-33 08:09:01 Test Item Value Reference Range Interpretation Comments Glucose POC (test code = 69337788) 85 mg/dL 74-106 Lab Interpretation (test code = Normal 96432-1) [facility] CenterMuexquMKYV-WpP-0 ORF1ab Resp Ql OLENA+szgmh9885-00-10 23:25:40 Test Item Value Reference Range Interpretation Comments Hospitalized? (test No code = 32675-9) ICU? (test code = No 64470-5) Symptomatic as No defined by CDC? (test code = 10455-1) Employed in No Healthcare? (test code = 84059-2) Resident in a No congregate care setting (including nursing homes, residential care for people with intellectual and developmental disabilities, psychiatric treatment facilities, group homes, board and care homes, homeless mcfp, foster care or other): (test code = 19226-4) SARS-CoV-2 ORF1ab NOT DETECTED Not Detected INTERPRETA TION: No Resp Ql OLENA+probe detectable levels of (test code = SARS-CoV-2 62005-2) Coronavirus (COVID-19) were present in this patient's [...] SARS-CoV-2 mole cular diagnostic assa y utilizes [employer] Mediated Amplification ( TMA) technology to r apidly detect the SARS -CoV-2 (COVID-19) viru s from respiratory adriana ples. In accordance with\\XC2A0\\the FDA's guidance docume nt "Policy for Diagnostic Test s for Coronavirus Disease-2018 du [place] the [facility] th Emergency", ginger s test was developed, and its performance characteristics were verified by the [facility] molecular diagn ostics laboratory and is authorized for clinical diagno stic use. \\XC2A0\\Thi s laboratory is certified under the Clinical Labora tory Improvement Amendments (CLI A) as qualified to pe rform high complexity clinical labora tory testing. [facility] Lead [id number] 15:46:1012 LEAD EKG FOR [facility] Test Date: 8385-73-84Kkj Name: DORA JOSEPH Department: 5ECIPatient ID: [id number] Room: Gender: M Life Science Technical Officer: [id number]: 1970 Requested By: DARRION Cho Number: [id number] Reading MD: Rene Patterson MeasurementsIntervals [place] Rate: 61 P: 72PR: 152 QRS: 55QRSD: 106 T: 63QT: 398 QTc: 400 Interpretive StatementsSINUS RHYTHMPOSSIBLE RIGHT VENTRICULAR CONDUCTION DELAY [RSR (QR) IN V1/V2]Electronically Signed On 01-22-2022 8:30:45 CDT by Rene Valle [place] [address] Lead [id number] 15:46:1012 LEAD EKG FOR [facility] Test Date: 4196-92-74Ohq Name: DORA JOSEPH Department: 5ECIPatient ID: [id number] Room: Gender: M Life Science Technical Officer: [id number]: 1970 Requested By: DARRION Cho Number: [id number] Reading MD: Rene Patterson MeasurementsIntervals [place] Rate: 61 P: 72PR: 152 QRS: 55QRSD: 106 T: 63QT: 398 QTc: 400 Interpretive StatementsSINUS RHYTHMPOSSIBLE RIGHT VENTRICULAR CONDUCTION DELAY [RSR (QR) IN V1/V2]Electronically Signed On 01-22-2022 8:30:45 CDT by Rene RaanSNDHarris Nkmavz18 Lead [id number] 15:46:1012 LEAD EKG FOR [facility] Test Date: 0143-37-86Fcp Name: DORA JOSEPH Department: 5ECIPatient ID: [id number] Room: Gender: M Life Science Technical Officer: [id number]: 1970 Requested By: DARRION Cho Number: [id number] Reading MD: Rene Patterson MeasurementsIntervals [place] Rate: 61 P: 72PR: 152 QRS: 55QRSD: 106 T: 63QT: 398 QTc: 400 Interpretive StatementsSINUS RHYTHMPOSSIBLE RIGHT VENT RICULAR CONDUCTION DELAY [RSR (QR) IN V1/V2]Electronically Signed On 01-22-2022 8:30:45 CDT by Rene [facility] CenterNosco HQSt. Anthony Hospital12 Lead [id number] 15:46:1012 LEAD EKG FOR [facility] Test Date: 8179-43-42Gbz Name: DORA JOSEPH Department: 5ECIPatient ID: [id number] Room: Gender: M Life Science Technical Officer: [id number]: 1970 Requested By: DARRION Cho Number: [id number] Reading MD: Rene Patterson MeasurementsIntervals [place] Rate: 61 P: 72PR: 152 QRS: 55QRSD: 106 T: 63QT: 398 QTc: 400 Interpretive StatementsSINUS RHYTHMPOSSIBLE RIGHT VENTRICULAR CONDUCTION DELAY [RSR (QR) IN V1/V2]Electronically Signed On 01-22-2022 8:30:45 CDT by Rene [facility] CenterNosco HQSt. [facility] Hospital12 Lead [id number] 15:46:1012 LEAD EKG FOR [facility] Test Date: 7840-29-46Bct Name: DORA JOSEPH Department: 5ECIPatient ID: [id number] Room: Gender: M Life Science Technical Officer: [id number]: 1970 Requested By: DARRION Cho Number: [id number] Reading MD: Rene Patterson MeasurementsIntervals [place] Rate: 61 P: 72PR : 152 QRS: 55QRSD: 106 T: 63QT: 398 QTc: 400 Interpretive StatementsSINUS RHYTHMPOSSIBLE RIGHT VENTRICULAR CONDUCTION DELAY [RSR (QR) IN V1/V2]Electronically Signed On 01-22-2022 8:30:45 CDT by Rene AvitiaVanderbilt University Medical CenterCompaShriners Hospitals for Children12 Lead [id number] 15:46:1012 LEAD EKG FOR [facility] Test Date: 8213-99-45Ooi Name: DORA JOSEPH Department: 5ECIPatient ID: [id number] Room: Gender: M Life Science Technical Officer: [id number]: 1970 Requested By: DARRION Cho Number: [id number] Reading MD: Rene Patterson MeasurementsIntervals [place] Rate: 61 P: 72PR: 152 QRS: 55QRSD: 106 T: 63QT: 398 QTc: 400 Interpretive StatementsSINUS RHYTHMPOSSIBLE RIGHT VENTRICULAR CONDUCTION DELAY [RSR (QR) IN V1/V2]Electronically Signed On 01-22-2022 8:30:45 CDT by Rene DebbyVanderbilt University Medical CenterSt. Anthony Hospital12 Lead [id number] 15:46:1012 LEAD EKG FOR [facility] Test Date: 9700-53-71Kzn Name: DORA JOSEPH Department: 5ECIPatient ID: [id number] Room: Gender: M Life Science Technical Officer: [id number]: 1970 Requested By: DARRION Cho Number: [id number] Reading MD: Rene Patterson MeasurementsIntervals [place] Rate: 61 P: 72PR:152 QRS: 55QRSD: 106 T: 63QT: 398 QTc: 400 Interpretive StatementsSINUS RHYTHMPOSSIBLE RIGHT VENTRIC ULAR CONDUCTION DELAY [RSR (QR) IN V1/V2]Electronically Signed On 01-22-2022 8:30:[address] [facility] Medical CenterDebbyVanderbilt University Medical CenterSt. Anthony Hospital12 Lead [id number] 15:46:1012 LEAD EKG FOR [facility] Test Date: 7468-38-74Xhc Name: DORA JOSEPH Department: 5ECIPatient ID: [id number] Room: Gender: M Life Science Technical Officer: [id number]: 1970 Requested By: DARRION Cho Number: [id number] Reading MD: Rene Patterson MeasurementsIntervals [place] Rate: 61 P: 72PR: 152 QRS: 55QRSD: 106 T: 63QT: 398 QTc: 400 Interpretive StatementsSINUS RHYTHMPOSSIBLE RIGHT VENTRICULAR CONDUCTION DELAY [RSR (QR) IN V1/V2]Electronically Signed On 01-22-2022 8:30:45 CDT by Rene HerShriners Hospitals for Children12 Lead [id number] 15:46:1012 LEAD EKG FOR [facility] Test Date: 5321-87-52Jog Name: DORA JOSEPH Department: 5ECIPatient ID: [id number] Room: Gender: M Life Science Technical Officer: [id number]: 1970 Requested By: DARRION Cho Number: [id number] Reading MD: Rene Patterson MeasurementsIntervals [place] Rate: 61 P: 72PR : 152 QRS: 55QRSD: 106 T: 63QT: 398 QTc: 400 Interpretive StatementsSINUS RHYTHMPOSSIBLE RIGHT VENTRICULAR CONDUCTION DELAY [RSR (QR) IN V1/V2]Electronically Signed On 01-22-2022 8:30:45 CDT by Rene Hernorthern [facility] medical center Xvwnuu15 Lead [id number] 15:46:1012 LEAD EKG FOR [facility] Test Date: 3367-49-57Zcu Name: DORA JOSEPH Department: 5ECIPatient ID: [id number] Room: Gender: M Life Science Technical Officer: [id number]: 1970 Requested By: DARRION Cho Number: [id number] Reading MD: Rene Patterson MeasurementsIntervals [place] Rate: 61 P: 72PR: 152 QRS: 55QRSD: 106 T: 63QT: 398 QTc: 400 Interpretive StatementsSINUS RHYTHMPOSSIBLE RIGHT VENTRICULAR CONDUCTION DELAY [RSR (QR) IN V1/V2]Electronically Signed On 01-22-2022 8:30:45 CDT by Rene SadiNDCompaShriners Hospitals for Children12 Lead [id number] 15:46:1012 LEAD EKG FOR [facility] Test Date: 9993-11-91Fxk Name: DORA JOSEPH Department: 5ECIPatient ID: [id number] Room: Gender: M Life Science Technical Officer: [id number]: 1970 Requested By: DARRION Cho Number: [id number] Reading MD: Rene Patterson MeasurementsIntervals [place] Rate: 61 P: 72PR: 152 QRS: 55QRSD: 106 T: 63QT: 398 QTc: 400 Interpretive StatementsSINUS RHYTHMPOSSIBLE RIGHT VENTR ICULAR CONDUCTION DELAY [RSR (QR) IN V1/V2]Electronically Signed On 01-22-2022 8:30:45 CDT by Rene AvitiaVanderbilt University Medical CenterCompanorthern navajo medical center Weyaem73 Lead [id number] 15:46:1012 LEAD EKG FOR [facility] Test Date: 4199-46-94Jzi Name: DORA JOSEPH Department: 5ECIPatient ID: [id number] Room: Gender: M Life Science Technical Officer: [id number]: 1970 Requested By: DARRION Cho Number: [id number] Reading MD: Rene Patterson MeasurementsIntervals [place] Rate: 61 P: 72PR: 152 QRS: 55QRSD: 106 T: 63QT: 398 QTc: 400 Interpretive StatementsSINUS RHYTHMPOSSIBLE RIGHT VENTRICULAR CONDUCTION DELAY [RSR (QR) IN V1/V2]Electronically Signed On 01-22-2022 8:30:45 CDT by Renerick AvitiaVanderbilt University Medical CenterCompaAlacritech [place]09 Lead [id number] 15:46:1012 LEAD EKG FOR [facility] Test Date: 6260-74-71Xom Name: DORA JOSEPH Department: 5ECIPatient ID: [id number] Room: Gender: M Life Science Technical Officer: [id number]: 1970 Requested By: DARRION Cho Number: [id number] Reading MD: Rene Patterson MeasurementsIntervals [place] Rate: 61 P: 72PR: 152 QRS: 55QRSD: 106 T: 63QT: 398 QTc: 400 Interpretive StatementsSINUS RHYTHMPOSSIBLE RIGHT VENTRICULAR CONDUCTION DELAY [RSR (QR) IN V1/V2]Electronically Signed On 01-22-2022 8:30:[address] [facility] Medical CenterChenal MediaCatherine [place] [address] Lead [id number] 15:46:1012 LEAD EKG FOR [facility] Test Date: 4514-72-93Uql Name: DORA JOSEPH Department: 5ECIPatient ID: [id number] Room: Gender: M Life Science Technical Officer: [id number]: 1970 Requested By: DARRION Cho Number: [id number] Reading MD: Rene Patterson MeasurementsIntervals [place] Rate: 61 P: 72PR: 152 QRS: 55QRSD: 106 T: 63QT: 398 QTc: 400 Interpretive StatementsSINUS RHYTHMPOSSIBLE RIGHT VENTRICULAR CONDUCTION DELAY [RSR (QR) IN V1/V2]Electronically Signed On 01-22-2022 8:30:[address] [facility] Medical CenterNosco HQAnita [place] [address] Lead [id number] 15:46:1012 LEAD EKG FOR [facility] Test Date: 4660-83-35Wus Name: DORA JOSEPH Department: 5ECIPatient ID: [id number] Room: Gender: M Life Science Technical Officer: [id number]: 1970 Requested By: DARRION Cho Number: [id number] Reading MD: Rene Patterson MeasurementsIntervals [place] Rate: 61 P: 72PR: 152 QRS: 55QRSD: 106 T: 63QT: 398 QTc: 400 Interpretive StatementsSINUS RHYTHMPOSSIBLE RIGHT VENTR ICULAR CONDUCTION DELAY [RSR (QR) IN V1/V2]Electronically Signed On 01-22-2022 8:30:45 CDT by [facility]V [facility]+2 Ab+HIV1 p24 Ag SerPl Ql [place] 2022-01-18 07:02:58 Test Item Value Reference Range Interpretation Comments HIV 1+2 Ab+HIV1 p24 Ag SerPl Ql [place] NEGATIVE Negative (test code = 47259-2) [id number] 21:23:2512 LEAD EKG FOR [facility] Test Date: 2297-24-50Zxa Name: DORA JOSEPH Department: 5520Patient ID: [id number] Room: 5B68Szdyrf: M Life Science Technical Officer: TILA: 1970 Requested By: KARIN BASSETT AOrder Number: [id number] Reading MD: Chiara Calles MeasurementsIntervals [place] Rate: 72 P: 90PR: 157 QRS: 87QRSD: 105 T: 90QT: 360 QTc: 384 Interpretive StatementsSINUS RHYTHMPOSSIBLE RIGHT VENTRICULAR CONDUCTION DELAY [RSR (QR) IN V1/V2]EARLY REPOLARIZATION [ST ELEVATION WITH NORMALLY INFLECTED T-W AVE]Electronically Signed On 01-17-2022 13:02:30 CDT by [facility] NetworkHumansFirst TechnologyKevin [place] [address]ZmtgedNHL6718-52-52 21:23:2512 LEAD EKG FOR [facility] Test Date: 1645-37-44Ftn Name: DORA JOSEPH Department: 5520Patient ID: [id number] Room: 9F34Zjytkt: M Life Science Technical Officer: : 1970 Requested By: KARIN BASSETT AOrder Number: [id number] Reading MD: Chiara Calles MeasurementsIntervals [place] Rate: 72 P: 90PR:157 QRS: 87QRSD: 105 T: 90QT: 360 QTc: 384 Interpretive StatementsSINUS RHYTHMPOSSIBLE RIGHT VENTRICULAR CONDUCTION DELAY [RSR (QR) IN V1/V2]EARLY REPOLARIZATION [ST ELEVATION WITH NORMALLY INFLECTED T- WAVE]Electronically Signed On 01-17-2022 13:02:30 CDT by misterbnbKevin [place] [address]CxevafKHZ7373-84-72 21:23:2512 LEAD EKG FOR [facility] Test Date: 8168-86-43Qyk Name: DORA JOSEPH Department: 5520Patient ID: [id number] Room: 6M20Tqxtxd: M Life Science Technical Officer: : 1970 Requested By: KARIN BASSETT AOrder Number: [id number] Reading MD: Chiara Calles MeasurementsIntervals [place] Rate: 72 P: 90PR: 157 QRS: 87QRSD: 105 T: 90QT: 360 QTc: 384 Interpretive StatementsSINUS RHYTHMPOSSIBLE RIGHT VENTRICULAR CONDUCTION DELAY [RSR (QR) IN V1/V2]EARLY REPOLARIZATION [ST ELEVATION WITH NORMALLY INFLECTED T- WAVE]Electronically Signed On 01-17-2022 13:02:30 CDT by [place] [address]1022-05-26 21:23:2512 LEAD EKG FOR [facility] Test Date: 6351-11-84Ndm Name: DORA JOSEPH Department: 5520Patient ID: [id number] Room: 5L59Gstsoo: M Life Science Technical Officer: : 1970 Requested By: KARIN BASSETT AOrder Number: [id number] Reading MD: Chiara Calles MeasurementsIntervals [place] Rate: 72 P: 90PR:157 QRS: 87QRSD: 105 T: 90QT: 360 QTc: 384 Interpretive StatementsSINUS RHYTHMPOSSIBLE RIGHT VENTRICULAR CONDUCTION DELAY [RSR (QR) IN V1/V2]EARLY REPOLARIZATION [ST ELEVATION WITH NORMALLY INFLECTED T- WAVE]Electronically Signed On 01-17-2022 13:02:30 CDT by [place] [address]1022-05-26 21:23:2512 LEAD EKG FOR [facility] Test Date: 7442-63-65Xpv Name: DORA PAEZRY Department: 5520Patient ID: [id number] Room: 4B99Cqqcvv: M Life Science Technical Officer: : 1970 Requested By: KARIN BASSETT AOrder Number: [id number] Reading MD: Chiara Calels MeasurementsIntervals [place] Rate: 72 P: 90PR: 157 QRS: 87QRSD: 105 T: 90QT: 360 QTc: 384 Interpretive StatementsSINUS RHYTHMPOSSIBLE RIGHT VENTRICULAR CONDUCTION DELAY [RSR (QR) IN V1/V2]EARLY REPOLARIZATION [ST ELEVATION WITH NORMALLY INFLECTED T-W AVE]Electronically Signed On 01-17-2022 13:02:30 CDT by [place] 66[address]1022-05-26 21:23:2512 LEAD EKG FOR [facility] Test Date: 9907-95-22Udo Name: DORA PAEZRY Department: 5520Patient ID: [id number] Room: 8B50Qtvmhy: M Life Science Technical Officer: : 1970 Requested By: KARIN BASSETT AOrder Number: [id number] Reading MD: Chiara Calles MeasurementsIntervals [place] Rate: 72 P: 90PR: 157 QRS: 87QRSD: 105 T: 90QT: 360 QTc: 384 Interpretive StatementsSINUS RHYTHMPOSSIBLE RIGHT VENTRICULAR CONDUCTION DELAY [RSR (QR) IN V1/V2]EARLY REPOLARIZATION [ST ELEVATION WITH NORMALLY INFLECTED T- WAVE]Electronically Signed On 01-17-2022 13:02:30 CDT by [facility] Socket MobileEvergreenHealth Medical CenterG2022-05-26 21:23:2512 LEAD EKG FOR [facility] Test Date: 4034-87-06Tvw Name: DORA JOSEPH Department: 5520Patient ID: [id number] Room: 9J71Mwpqpe: M Life Science Technical Officer: : 1970 Requested By: KARIN BASSETT AOrder Number: [id number] Reading MD: Chiara Calles MeasurementsIntervals [place] Rate: 72 P: 90PR: 157 QRS: 87QRSD: 105 T: 90QT: 360 QTc: 384 Interpretive StatementsSINUS RHYTHMPOSSIBLE RIGHT VENTRICULAR CONDUCTION DELAY [RSR (QR) IN V1/V2]EARLY REPOLARIZATION [ST ELEVATION WITH NORMALLY INFLECTED T- WAVE]Electronically Signed On 01-17-2022 13:02:30 CDT by [facility] LaserLeapSkyline HospitalOorbbfEXX9152-88-42 21:23:2512 LEAD EKG FOR [facility] Test Date: 0353-48-25Vch Name: DORA PAEZRY Department: 5520Patient ID: [id number] Room: 5V66Cfnkfa: M Life Science Technical Officer: : 1970 Requested By: JESSICA AOrder Number: [id number] Reading MD: Chiara Calles MeasurementsIntervals [place] Rate: 72 P: 90PR:157 QRS: 87QRSD: 105 T: 90QT: 360 QTc: 384 Interpretive StatementsSINUS RHYTHMPOSSIBLE RIGHT VENTRICULAR CONDUCTION DELAY [RSR (QR) IN V1/V2]EARLY REPOLARIZATION [ST ELEVATION WITH NORMALLY INFLECTED T- WAVE]Electronically Signed On 01-17-2022 13:02:30 CDT by [facility] Socket MobileEvergreenHealth Medical CenterG2022-05-26 21:23:2512 LEAD EKG FOR [facility] Test Date: 2288-52-08Mdj Name: DORA JOSEPH Department: 5520Patient ID: [id number] Room: 1N73Dpzlvp: M Life Science Technical Officer: : 1970 Requested By: KARIN BASSETT AOrder Number: [id number] Reading MD: Chiara Calles MeasurementsIntervals [place] Rate: 72 P: 90PR:157 QRS: 87QRSD: 105 T: 90QT: 360 QTc: 384 Interpretive StatementsSINUS RHYTHMPOSSIBLE RIGHT VENTRICULAR CONDUCTION DELAY [RSR (QR) IN V1/V2]EARLY REPOLARIZATION [ST ELEVATION WITH NORMALLY INFLECTED T- WAVE]Electronically Signed On 01-17-2022 13:02:30 CDT by [facility] Networkrobert LaserLeapChi St. Vincent InfirmaryAlacritech RjpaagIGE1160-23-71 21:23:2512 LEAD EKG FOR [facility] Test Date: 0525-53-86Xys Name: DORA PEAZRY Department: 5520Patient ID: [id number] Room: 7P95Owppkm: M Life Science Technical Officer: : 1970 Requested By: KARIN BASSETT AOrder Number: [id number] Reading MD: Chiara Clales MeasurementsIntervals [place] Rate: 72 P: 90PR:157 QRS: 87QRSD: 105 T: 90QT: 360 QTc: 384 Interpretive StatementsSINUS RHYTHMPOSSIBLE RIGHT VENTRICULAR CONDUCTION DELAY [RSR (QR) IN V1/V2]EARLY REPOLARIZATION [ST ELEVATION WITH NORMALLY INFLECTED T- WAVE]Electronically Signed On 01-17-2022 13:02:30 CDT by Chiara LaserLeapKevin [place] [address]WqwicjNCR2639-85-03 21:23:2512 LEAD EKG FOR [facility] Test Date: 4905-14-96Bau Name: DORA JOSEPH Department: 5520Patient ID: [id number] Room: 6Q46Yqbejq: M Life Science Technical Officer: : 1970 Requested By: JESSICA AOrder Number: [id number] Reading MD: Chiara Calles MeasurementsIntervals [place] Rate: 72 P: 90PR: 157 QRS: 87QRSD: 105 T: 90QT: 360 QTc: 384 Interpretive StatementsSINUS RHYTHMPOSSIBLE RIGHT VENTRICULAR CONDUCTION DELAY [RSR (QR) IN V1/V2]EARLY REPOLARIZATION [ST ELEVATION WITH NORMALLY INFLECTED T- WAVE]Electronically Signed On 01-17-2022 13:02:30 CDT by [facility] LaserLeapKevin [place] [address]CverdzTQF2123-99-22 21:23:2512 LEAD EKG FOR [facility] Test Date: 2027-62-24Akw Name: DORA JOSEPH Department: 5520Patient ID: [id number] Room: 3M66Ybnyxe: M Life Science Technical Officer: : 1970 Requested By: KARIN BASSETT AOrder Number: [id number] Reading MD: Chiara Calles MeasurementsIntervals [place] Rate: 72 P: 90PR: 157 QRS: 87QRSD: 105 T: 90QT: 360 QTc: 384 Interpretive StatementsSINUS RHYTHMPOSSIBLE RIGHT VENTRICULAR CONDUCTION DELAY [RSR (QR) IN V1/V2]EARLY REPOLARIZATION [ST ELEVATION WITH NORMALLY INFLECTED T- WAVE]Electronically Signed On 01-17-2022 13:02:30 CDT by [facility] Networkrobert LaserLeapKevin [place] [address]IkahfqTLG9548-91-45 21:23:2512 LEAD EKG FOR [facility] Test Date: 3474-78-78Vuo Name: DORA JOSEPH Department: 5520Patient ID: [id number] Room: 0L28Cyluxk: M [employer] Technical Officer: : 1970 Requested By: KARIN BASSETT AOrder Number: [id number] Reading MD: Chiara Calles MeasurementsIntervals [place] Rate: 72 P: 90PR: 157 QRS: 87QRSD: 105 T: 90QT: 360 QTc: 384 Interpretive StatementsSINUS RHYTHMPOSSIBLE RIGHT VENTRICULAR CONDUCTION DELAY [RSR (QR) IN V1/V2]EARLY REPOLARIZATION [ST ELEVATION WITH NORMALLY INFLECTED T-WA VE]Electronically Signed On 01-17-2022 13:02:30 CDT by [facility] [place] [id number] 21:23:2512 LEAD EKG FOR [facility] Test Date: [id number] Name: DORA JOSEPH Department: 5520Patient ID: [id number] Room: 2A37Yyelsg: M [employer] Technical Officer: : 1970 Requested By: KARIN BASSETT AOrder Number: [id number] Reading MD: Chiara Calles MeasurementsIntervals [place] Rate: 72 P: 90PR:157 QRS: 87QRSD: 105 T: 90QT: 360 QTc: 384 Interpretive StatementsSINUS RHYTHMPOSSIBLE RIGHT VENTRICULAR CONDUCTION DELAY [RSR (QR) IN V1/V2]EARLY REPOLARIZATION [ST ELEVATION WITH NORMALLY INFLECTED T- WAVE]Electronically Signed On 01-17-2022 13:02:30 CDT by TelepathEKG2022-05-26 21:23:2512 LEAD EKG FOR [facility] Test Date: [id number] Name: DORA JOSEPH Department: 5520Patient ID: [id number] Room: 2U93Pnioed: Life Science Technical Officer: : 1970 Requested By: KARIN BASSETT AOrder Number: [id number] Reading MD: Chiara Calles MeasurementsIntervals [place] Rate: 72 P: 90PR:157 QRS: 87QRSD: 105 T: 90QT: 360 QTc: 384 Interpretive StatementsSINUS RHYTHMPOSSIBLE RIGHT VENTRICULAR CONDUCTION DELAY [RSR (QR) IN V1/V2]EARLY REPOLARIZATION [ST ELEVATION WITH NORMALLY INFLECTED T- WAVE]Electronically Signed On 01-17-2022 13:02:30 CDT by TelepathSARS-CoV-2 ORF1ab Resp Ql OLENA+bnpav3412-71-30 19:57:49 Test Item Value Reference Range Interpretation Comments Hospitalized? (test No code = 57816-2) ICU? (test code = No 58238-2) Symptomatic as No defined by CDC? (test code = 44407-1) Employed in No Healthcare? (test code = 76956-6) Resident in a No congregate care setting (including nursing homes, residential care for people with intellectual and developmental disabilities, psychiatric treatment facilities, group homes, board and care homes, homeless mcfp, foster care or other): (test code = 42816-1) SARS-CoV-2 ORF1ab NOT DETECTED Not Detected INTERPRETA TION: No Resp Ql OLENA+probe detectable levels of (test code = SARS-CoV-2 18711-5) Coronavirus (COVID-19) were present in this patient's [...] SARS-CoV-2 mole cular diagnostic assa y utilizes [employer] Mediated Amplification ( TMA) technology to r apidly detect the SARS -CoV-2 (COVID-19) viru s from respiratory adriana ples. In accordance with\\XC2A0\\the FDA's guidance docume nt "Policy for Diagnostic Test s for Coronavirus Disease-2019 du ring the Public Heal Emergency", ginger s test was developed, and its performance characteristics were verified by the [facility] molecular diagn ostics laboratory and is authorized for clinical diagno stic use. \\XC2A0\\Thi s laboratory is certified under the Clinical Labora tory Improvement Amendments (CLI A) as qualified to pe rform high complexity clinical labora tory testing. [facility] CREATININE POC docked [id number] 13:57:55 Test Item Value Reference Range Interpretation Comments Creatinine POC (test 2.4 mg/dL 0.6-1.3 H Physici an Notified code = 43112955) eGFR If non- Am 30 See_Comment L [Aut omated message] (test code = 62423763) The s ystem which generated this result transmit dain reference range : >=90 mL/min/1.7 3 m2. The reference r meredith was not used to interpret this result as normal/abnormal . eGFR If Am (test 35 See_Comment L [A utomated message] code = 52147718) The system which generated this result transmit dani reference range : >=90 mL/min/1.7 3 m2. The reference r meredith was not used to interpret this result as normal/abnormal . Lab Interpretation (test Abnormal code = 78966-2) [facility] CREATININE POC docked [id number] 13:57:55 Test Item Value Reference Range Interpretation Comments Creatinine POC (test 2.4 mg/dL 0.6-1.3 H Physici an Notified code = 33738009) eGFR If non- Am 30 See_Comment L [Aut omated message] (test code = 32363962) The s ystem which generated this result transmit dain reference range : >=90 mL/min/1.7 3 m2. The reference r meredith was not used to interpret this result as normal/abnormal . eGFR If Am (test 35 See_Comment L [A utomated message] code = 28897849) The system which generated this result transmit dain reference range : >=90 mL/min/1.7 3 m2. The reference r meredith was not used to interpret this result as normal/abnormal . Lab Interpretation (test Abnormal code = 17102-4) [facility] CREATININE POC docked [id number] 13:57:55 Test Item Value Reference Range Interpretation Comments Creatinine POC (test 2.4 mg/dL 0.6-1.3 H Physici an Notified code = 67568149) eGFR If non- Am 30 See_Comment L [Aut omated message] (test code = 19178603) The s ystem which generated this result transmit dain reference range : >=90 mL/min/1.7 3 m2. The reference r meredith was not used to interpret this result as normal/abnormal . eGFR If Am (test 35 See_Comment L [A utomated message] code = 01161541) The system which generated this result transmit dain reference range : >=90 mL/min/1.7 3 m2. The reference r meredith was not used to interpret this result as normal/abnormal . Lab Interpretation (test Abnormal code = 26884-2) [facility] CREATININE POC docked [id number] 13:57:55 Test Item Value Reference Range Interpretation Comments Creatinine POC (test 2.4 mg/dL 0.6-1.3 H Physici an Notified code = 50621526) eGFR If non- Am 30 See_Comment L [Aut omated message] (test code = 40789594) The s ystem which generated this result transmit dain reference range : >=90 mL/min/1.7 3 m2. The reference r meredith was not used to interpret this result as normal/abnormal . eGFR If Am (test 35 See_Comment L [A utomated message] code = 37733038) The system which generated this result transmit dain reference range : >=90 mL/min/1.7 3 m2. The reference r meredith was not used to interpret this result as normal/abnormal . Lab Interpretation (test Abnormal code = 13584-9) [facility] CREATININE POC docked [id number] 13:57:55 Test Item Value Reference Range Interpretation Comments Creatinine POC (test 2.4 mg/dL 0.6-1.3 H Physici an Notified code = 56886061) eGFR If non- Am 30 See_Comment L [Aut omated message] (test code = 42134458) The s ystem which generated this result transmit dain reference range : >=90 mL/min/1.7 3 m2. The reference r meredith was not used to interpret this result as normal/abnormal . eGFR If Am (test 35 See_Comment L [A utomated message] code = 43005135) The system which generated this result transmit dain reference range : >=90 mL/min/1.7 3 m2. The reference r meredith was not used to interpret this result as normal/abnormal . Lab Interpretation (test Abnormal code = 90617-0) [facility] CREATININE POC docked [id number] 13:57:55 Test Item Value Reference Range Interpretation Comments Creatinine POC (test 2.4 mg/dL 0.6-1.3 H Physici an Notified code = 44474811) eGFR If non- Am 30 See_Comment L [Aut omated message] (test code = 45003379) The s ystem which generated this result transmit dain reference range : >=90 mL/min/1.7 3 m2. The reference r meredith was not used to interpret this result as normal/abnormal . eGFR If Am (test 35 See_Comment L [A utomated message] code = 82803196) The system which generated this result transmit dain reference range : >=90 mL/min/1.7 3 m2. The reference r meredith was not used to interpret this result as normal/abnormal . Lab Interpretation (test Abnormal code = 42989-9) [facility] CREATININE POC docked [id number] 13:57:55 Test Item Value Reference Range Interpretation Comments Creatinine POC (test 2.4 mg/dL 0.6-1.3 H Physici an Notified code = 56711782) eGFR If non- Am 30 See_Comment L [Aut omated message] (test code = 07399998) The s ystem which generated this result transmit dain reference range : >=90 mL/min/1.7 3 m2. The reference r meredith was not used to interpret this result as normal/abnormal . eGFR If Am (test 35 See_Comment L [A utomated message] code = 70653562) The system which generated this result transmit dain reference range : >=90 mL/min/1.7 3 m2. The reference r meredith was not used to interpret this result as normal/abnormal . Lab Interpretation (test Abnormal code = 80412-5) [facility] CREATININE POC docked [id number] 13:57:55 Test Item Value Reference Range Interpretation Comments Creatinine POC (test 2.4 mg/dL 0.6-1.3 H Physici an Notified code = 67046602) eGFR If non- Am 30 See_Comment L [Aut omated message] (test code = 14751339) The s ystem which generated this result transmit dain reference range : >=90 mL/min/1.7 3 m2. The reference r meredith was not used to interpret this result as normal/abnormal . eGFR If Am (test 35 See_Comment L [A utomated message] code = 76802690) The system which generated this result transmit dain reference range : >=90 mL/min/1.7 3 m2. The reference r meredith was not used to interpret this result as normal/abnormal . Lab Interpretation (test Abnormal code = 54050-6) [facility] [id number] 13:57:55 Test Item Value Reference Range Interpretation Comments Creatinine POC (test 2.4 mg/dL 0.6-1.3 H Physici an Notified code = 08984147) eGFR If non- Am 30 See_Comment L [Aut omated message] (test code = 61573164) The s ystem which generated this result transmit dain reference range : >=90 mL/min/1.7 3 m2. The reference r meredith was not used to interpret this result as normal/abnormal . eGFR If Am (test 35 See_Comment L [A utomated message] code = 78626746) The system which generated this result transmit dain reference range : >=90 mL/min/1.7 3 m2. The reference r meredith was not used to interpret this result as normal/abnormal . Lab Interpretation (test Abnormal code = 77844-9) [facility] CREATININE POC docked [id number] 13:57:55 Test Item Value Reference Range Interpretation Comments Creatinine POC (test 2.4 mg/dL 0.6-1.3 H Physici an Notified code = 83052628) eGFR If non- Am 30 See_Comment L [Aut omated message] (test code = 21846878) The s ystem which generated this result transmit dain reference range : >=90 mL/min/1.7 3 m2. The reference r meredith was not used to interpret this result as normal/abnormal . eGFR If Am (test 35 See_Comment L [A utomated message] code = 18615359) The system which generated this result transmit dain reference range : >=90 mL/min/1.7 3 m2. The reference r meredith was not used to interpret this result as normal/abnormal . Lab Interpretation (test Abnormal code = 79368-6) [facility] CREATININE POC docked [id number] 13:57:55 Test Item Value Reference Range Interpretation Comments Creatinine POC (test 2.4 mg/dL 0.6-1.3 H Physici an Notified code = 41819035) eGFR If non- Am 30 See_Comment L [Aut omated message] (test code = 84079628) The s ystem which generated this result transmit dain reference range : >=90 mL/min/1.7 3 m2. The reference r meredith was not used to interpret this result as normal/abnormal . eGFR If Am (test 35 See_Comment L [A utomated message] code = 24000041) The system which generated this result transmit dain reference range : >=90 mL/min/1.7 3 m2. The reference r meredith was not used to interpret this result as normal/abnormal . Lab Interpretation (test Abnormal code = 09781-9) [facility] [id number] 13:57:55 Test Item Value Reference Range Interpretation Comments Creatinine POC (test 2.4 mg/dL 0.6-1.3 H Physici an Notified code = 52727611) eGFR If non- Am 30 See_Comment L [Aut omated message] (test code = 05956990) The s ystem which generated this result transmit dain reference range : >=90 mL/min/1.7 3 m2. The reference r meredith was not used to interpret this result as normal/abnormal . eGFR If Am (test 35 See_Comment L [A utomated message] code = 09427771) The system which generated this result transmit dain reference range : >=90 mL/min/1.7 3 m2. The reference r meredith was not used to interpret this result as normal/abnormal . Lab Interpretation (test Abnormal code = 94297-4) [facility] CREATININE POC docked [id number] 13:57:55 Test Item Value Reference Range Interpretation Comments Creatinine POC (test 2.4 mg/dL 0.6-1.3 H Physici an Notified code = 01772634) eGFR If non- Am 30 See_Comment L [Aut omated message] (test code = 35645884) The s ystem which generated this result transmit dain reference range : >=90 mL/min/1.7 3 m2. The reference r meredith was not used to interpret this result as normal/abnormal . eGFR If Am (test 35 See_Comment L [A utomated message] code = 71130426) The system which generated this result transmit dain reference range : >=90 mL/min/1.7 3 m2. The reference r meredith was not used to interpret this result as normal/abnormal . Lab Interpretation (test Abnormal code = 79816-5) [facility] [id number] 13:57:55 Test Item Value Reference Range Interpretation Comments Creatinine POC (test 2.4 mg/dL 0.6-1.3 H Physici an Notified code = 94310638) eGFR If non- Am 30 See_Comment L [Aut omated message] (test code = 96276952) The s ystem which generated this result transmit dain reference range : >=90 mL/min/1.7 3 m2. The reference r meredith was not used to interpret this result as normal/abnormal . eGFR If Am (test 35 See_Comment L [A utomated message] code = 62698529) The system which generated this result transmit dain reference range : >=90 mL/min/1.7 3 m2. The reference r meredith was not used to interpret this result as normal/abnormal . Lab Interpretation (test Abnormal code = 07357-2) [facility] CREATININE POC docked [id number] 13:57:55 Test Item Value Reference Range Interpretation Comments Creatinine POC (test 2.4 mg/dL 0.6-1.3 H Physici an Notified code = 58708281) eGFR If non- Am 30 See_Comment L [Aut omated message] (test code = 97603657) The s ystem which generated this result transmit dain reference range : >=90 mL/min/1.7 3 m2. The reference r meredith was not used to interpret this result as normal/abnormal . eGFR If Am (test 35 See_Comment L [A utomated message] code = 71852880) The system which generated this result transmit dain reference range : >=90 mL/min/1.7 3 m2. The reference r meredith was not used to interpret this result as normal/abnormal . Lab Interpretation (test Abnormal code = 51114-7) [facility] BMP POC docked [id number] 13:48:46 Test Item Value Reference Range Interpretation Comments Sodium POC (test code = 126 mmol/L 136-145 L 82156310) Potassium POC (test code 4.4 mmol/L 3.5-5.1 = 58361597) Chloride POC (test code 100 mmol/L 98-107 = 77103086) TCO2 POC (test code = 17 mmol/L 21-32 L Physic rachel Notified 72269616) Urea Nitrogen POC (test 36 mg/dL 7-18 H code = 74925961) Glucose POC (test code = 114 mg/dL 74-106 H 47591325) Hemoglobin POC (test 11.9 g/dL 12-16 L code = 45322396) Hematocrit POC (test 35.0 % 37.0-47.0 L code = 22243358) Lab Interpretation (test Abnormal code = 69303-4) [facility] POC docked [id number] 13:48:46 Test Item Value Reference Range Interpretation Comments Sodium POC (test code = 126 mmol/L 136-145 L 23087615) Potassium POC (test code 4.4 mmol/L 3.5-5.1 = 50450085) Chloride POC (test code 100 mmol/L 98-107 = 64044642) TCO2 POC (test code = 17 mmol/L 21-32 L Physic rachel Notified 61017274) Urea Nitrogen POC (test 36 mg/dL 7-18 H code = 11070790) Glucose POC (test code = 114 mg/dL 74-106 H 62851431) Hemoglobin POC (test 11.9 g/dL 12-16 L code = 11108063) Hematocrit POC (test 35.0 % 37.0-47.0 L code = 45721187) Lab Interpretation (test Abnormal code = 37125-3) [facility] POC docked [id number] 13:48:46 Test Item Value Reference Range Interpretation Comments Sodium POC (test code = 126 mmol/L 136-145 L 31530376) Potassium POC (test code 4.4 mmol/L 3.5-5.1 = 86297038) Chloride POC (test code 100 mmol/L 98-107 = 54891593) TCO2 POC (test code = 17 mmol/L 21-32 L Physic rachel Notified 53194374) Urea Nitrogen POC (test 36 mg/dL 7-18 H code = 77818051) Glucose POC (test code = 114 mg/dL 74-106 H 92202579) Hemoglobin POC (test 11.9 g/dL 12-16 L code = 37686097) Hematocrit POC (test 35.0 % 37.0-47.0 L code = 23102750) Lab Interpretation (test Abnormal code = 47623-7) [facility] POC docked [id number] 13:48:46 Test Item Value Reference Range Interpretation Comments Sodium POC (test code = 126 mmol/L 136-145 L 71067825) Potassium POC (test code 4.4 mmol/L 3.5-5.1 = 73959070) Chloride POC (test code 100 mmol/L 98-107 = 03811304) TCO2 POC (test code = 17 mmol/L 21-32 L Physic rachel Notified 92730389) Urea Nitrogen POC (test 36 mg/dL 7-18 H code = 40803943) Glucose POC (test code = 114 mg/dL 74-106 H 02456489) Hemoglobin POC (test 11.9 g/dL 12-16 L code = 46750454) Hematocrit POC (test 35.0 % 37.0-47.0 L code = 98453547) Lab Interpretation (test Abnormal code = 59068-0) [facility] POC docked [id number] 13:48:46 Test Item Value Reference Range Interpretation Comments Sodium POC (test code = 126 mmol/L 136-145 L 12823418) Potassium POC (test code 4.4 mmol/L 3.5-5.1 = 77951379) Chloride POC (test code 100 mmol/L 98-107 = 44143022) TCO2 POC (test code = 17 mmol/L 21-32 L Physic rachel Notified 27320316) Urea Nitrogen POC (test 36 mg/dL 7-18 H code = 64530044) Glucose POC (test code = 114 mg/dL 74-106 H 44680068) Hemoglobin POC (test 11.9 g/dL 12-16 L code = 96917539) Hematocrit POC (test 35.0 % 37.0-47.0 L code = 98629631) Lab Interpretation (test Abnormal code = 47938-4) [facility] POC docked [id number] 13:48:46 Test Item Value Reference Range Interpretation Comments Sodium POC (test code = 126 mmol/L 136-145 L 95336453) Potassium POC (test code 4.4 mmol/L 3.5-5.1 = 46228883) Chloride POC (test code 100 mmol/L 98-107 = 65870962) TCO2 POC (test code = 17 mmol/L 21-32 L Physic rachel Notified 34725933) Urea Nitrogen POC (test 36 mg/dL 7-18 H code = 08552580) Glucose POC (test code = 114 mg/dL 74-106 H 97030614) Hemoglobin POC (test 11.9 g/dL 12-16 L code = 71452839) Hematocrit POC (test 35.0 % 37.0-47.0 L code = 99676042) Lab Interpretation (test Abnormal code = 06333-3) [facility] POC docked [id number] 13:48:46 Test Item Value Reference Range Interpretation Comments Sodium POC (test code = 126 mmol/L 136-145 L 19651968) Potassium POC (test code 4.4 mmol/L 3.5-5.1 = 81716682) Chloride POC (test code 100 mmol/L 98-107 = 38698910) TCO2 POC (test code = 17 mmol/L 21-32 L Physic rachel Notified 48786397) Urea Nitrogen POC (test 36 mg/dL 7-18 H code = 15766482) Glucose POC (test code = 114 mg/dL 74-106 H 77261912) Hemoglobin POC (test 11.9 g/dL 12-16 L code = 39435346) Hematocrit POC (test 35.0 % 37.0-47.0 L code = 24859589) Lab Interpretation (test Abnormal code = 23321-7) [facility] POC docked [id number] 13:48:46 Test Item Value Reference Range Interpretation Comments Sodium POC (test code = 126 mmol/L 136-145 L 64880101) Potassium POC (test code 4.4 mmol/L 3.5-5.1 = 14011948) Chloride POC (test code 100 mmol/L 98-107 = 59239675) TCO2 POC (test code = 17 mmol/L 21-32 L Physic rachel Notified 32190099) Urea Nitrogen POC (test 36 mg/dL 7-18 H code = 93193969) Glucose POC (test code = 114 mg/dL 74-106 H 66003238) Hemoglobin POC (test 11.9 g/dL 12-16 L code = 80302674) Hematocrit POC (test 35.0 % 37.0-47.0 L code = 89949296) Lab Interpretation (test Abnormal code = 31633-8) [facility] POC docked [id number] 13:48:46 Test Item Value Reference Range Interpretation Comments Sodium POC (test code = 126 mmol/L 136-145 L 99496705) Potassium POC (test code 4.4 mmol/L 3.5-5.1 = 05828625) Chloride POC (test code 100 mmol/L 98-107 = 17017906) TCO2 POC (test code = 17 mmol/L 21-32 L Physic rachel Notified 13517856) Urea Nitrogen POC (test 36 mg/dL 7-18 H code = 88988391) Glucose POC (test code = 114 mg/dL 74-106 H 37059392) Hemoglobin POC (test 11.9 g/dL 12-16 L code = 37174612) Hematocrit POC (test 35.0 % 37.0-47.0 L code = 30259600) Lab Interpretation (test Abnormal code = 14347-6) [facility] POC docked [id number] 13:48:46 Test Item Value Reference Range Interpretation Comments Sodium POC (test code = 126 mmol/L 136-145 L 18625347) Potassium POC (test code 4.4 mmol/L 3.5-5.1 = 79654546) Chloride POC (test code 100 mmol/L 98-107 = 04330991) TCO2 POC (test code = 17 mmol/L 21-32 L Physic rachel Notified 83854246) Urea Nitrogen POC (test 36 mg/dL 7-18 H code = 82741833) Glucose POC (test code = 114 mg/dL 74-106 H 91014458) Hemoglobin POC (test 11.9 g/dL 12-16 L code = 39128845) Hematocrit POC (test 35.0 % 37.0-47.0 L code = 98941441) Lab Interpretation (test Abnormal code = 90622-8) [facility] POC docked [id number] 13:48:46 Test Item Value Reference Range Interpretation Comments Sodium POC (test code = 126 mmol/L 136-145 L 69028913) Potassium POC (test code 4.4 mmol/L 3.5-5.1 = 90683644) Chloride POC (test code 100 mmol/L 98-107 = 51766342) TCO2 POC (test code = 17 mmol/L 21-32 L Physic rachel Notified 48484096) Urea Nitrogen POC (test 36 mg/dL 7-18 H code = 96987468) Glucose POC (test code = 114 mg/dL 74-106 H 33843217) Hemoglobin POC (test 11.9 g/dL 12-16 L code = 28630188) Hematocrit POC (test 35.0 % 37.0-47.0 L code = 77394670) Lab Interpretation (test Abnormal code = 85150-4) [facility] POC docked [id number] 13:48:46 Test Item Value Reference Range Interpretation Comments Sodium POC (test code = 126 mmol/L 136-145 L 54262876) Potassium POC (test code 4.4 mmol/L 3.5-5.1 = 15641339) Chloride POC (test code 100 mmol/L 98-107 = 61625018) TCO2 POC (test code = 17 mmol/L 21-32 L Physic rachel Notified 39064761) Urea Nitrogen POC (test 36 mg/dL 7-18 H code = 70884251) Glucose POC (test code = 114 mg/dL 74-106 H 44761766) Hemoglobin POC (test 11.9 g/dL 12-16 L code = 51612866) Hematocrit POC (test 35.0 % 37.0-47.0 L code = 59060689) Lab Interpretation (test Abnormal code = 76440-1) [facility] POC docked [id number] 13:48:46 Test Item Value Reference Range Interpretation Comments Sodium POC (test code = 126 mmol/L 136-145 L 05928747) Potassium POC (test code 4.4 mmol/L 3.5-5.1 = 20088241) Chloride POC (test code 100 mmol/L 98-107 = 98679918) TCO2 POC (test code = 17 mmol/L 21-32 L Physic rachel Notified 68872495) Urea Nitrogen POC (test 36 mg/dL 7-18 H code = 64245261) Glucose POC (test code = 114 mg/dL 74-106 H 10822570) Hemoglobin POC (test 11.9 g/dL 12-16 L code = 84889592) Hematocrit POC (test 35.0 % 37.0-47.0 L code = 85756665) Lab Interpretation (test Abnormal code = 53923-0) [facility] BMP POC docked [id number] 13:48:46 Test Item Value Reference Range Interpretation Comments Sodium POC (test code = 126 mmol/L 136-145 L 04977281) Potassium POC (test code 4.4 mmol/L 3.5-5.1 = 59952893) Chloride POC (test code 100 mmol/L 98-107 = 23827165) TCO2 POC (test code = 17 mmol/L 21-32 L Physic rachel Notified 96786582) Urea Nitrogen POC (test 36 mg/dL 7-18 H code = 92791305) Glucose POC (test code = 114 mg/dL 74-106 H 13362844) Hemoglobin POC (test 11.9 g/dL 12-16 L code = 63558614) Hematocrit POC (test 35.0 % 37.0-47.0 L code = 70791892) Lab Interpretation (test Abnormal code = 29478-5) [facility] BMP POC docked [id number] 13:48:46 Test Item Value Reference Range Interpretation Comments Sodium POC (test code = 126 mmol/L 136-145 L 10717748) Potassium POC (test code 4.4 mmol/L 3.5-5.1 = 02627970) Chloride POC (test code 100 mmol/L 98-107 = 51026410) TCO2 POC (test code = 17 mmol/L 21-32 L Physic rachel Notified 44542895) Urea Nitrogen POC (test 36 mg/dL 7-18 H code = 05139626) Glucose POC (test code = 114 mg/dL 74-106 H 21510561) Hemoglobin POC (test 11.9 g/dL 12-16 L code = 84361171) Hematocrit POC (test 35.0 % 37.0-47.0 L code = 52462032) Lab Interpretation (test Abnormal code = 91668-8) [facility]-CoV-2 ORF1ab Resp Ql OLENA+[id number] 20:25:16 Test Item Value Reference Range Interpretation Comments Hospitalized? (test No code = 30751-9) ICU? (test code = No 43032-2) Symptomatic as No defined by CDC? (test code = 08161-9) Employed in No Healthcare? (test code = 74977-5) Resident in a No congregate care setting (including nursing homes, residential care for people with intellectual and developmental disabilities, psychiatric treatment facilities, group homes, board and care homes, homeless mcfp, foster care or other): (test code = 25056-1) SARS-CoV-2 ORF1ab NOT DETECTED Not Detected INTERPRETA TION: No Resp Ql OLENA+probe detectable levels of (test code = SARS-CoV-2 35356-7) Coronavirus (COVID-19) were present in this patient's [...] SARS-CoV-2 mole cular diagnostic assa y utilizes [employer] Mediated Amplification ( TMA) technology to r apidly detect the SARS -CoV-2 (COVID-19) viru s from respiratory adriana ples. In accordance with\\XC2A0\\the FDA's guidance docume nt "Policy for Diagnostic Test s for Coronavirus Disease-2019 du [facility] the Public [facility] Emergency", ginger s test was developed, and its performance characteristics were verified by the [facility] molecular diagn ostics laboratory and is authorized for clinical diagno stic use. \\XC2A0\\Ginger s laboratory is certified under the Clinical Labora tory Improvement Amendments (CLI A) as qualified to pe rform high complexity clinical labora tory testing. [facility] docked [id number] 11:16:15 Test Item Value Reference Range Interpretation Comments pH, Pankaj POC (test code 7.32 7.33-7.43 L = 72988732) pCO2,Pankaj POC (test code 31.0 See_Comment L [Au tomated = 22444351) message] The sy stem which generated this result transmitted reference range : 38 - 50 mmHg. The reference range was not used to interpret this result as normal/abnormal . PO2, Venous POC (BKR) 44 See_Comment L [Auto mated (test code = 80281768) messa ge] The system which generated this result transmitted reference range : 50 - 75 mm Hg. The reference range was not used to interpret this result as normal/abnormal . Ionized Calcium POC 1.24 mmol/L 1.15-1.29 (test code = 69338483) HCO3, Pankaj POC (test 16 mmol/L 22-26 L code = 43096679) TCO2 POC (test code = 17 mmol/L 21-32 L 21198808) Base Deficit, Pankaj POC -9 (test code = 98550387) Sample Type (test code IVEN Physi erik Notified = 45355985) % Sat, Pankaj POC (test 77 % code = 78230920) Lab Interpretation Abnormal (test code = 43682-2) [facility]BG POC docked [id number] 11:16:15 Test Item Value Reference Range Interpretation Comments pH, Pankaj POC (test code 7.32 7.33-7.43 L = 86570163) pCO2,Pankaj POC (test code 31.0 See_Comment L [Au tomated = 20659306) message] The sy stem which generated this result transmitted reference range : 38 - 50 mmHg. The reference range was not used to interpret this result as normal/abnormal . PO2, Venous POC (BKR) 44 See_Comment L [Auto mated (test code = 87335282) messa ge] The system which generated this result transmitted reference range : 50 - 75 mm Hg. The reference range was not used to interpret this result as normal/abnormal . Ionized Calcium POC 1.24 mmol/L 1.15-1.29 (test code = 44434221) HCO3, Pankaj POC (test 16 mmol/L 22-26 L code = 34703552) TCO2 POC (test code = 17 mmol/L 21-32 L 38239719) Base Deficit, Pankaj POC -9 (test code = 28662194) Sample Type (test code IVEN Physi erik Notified = 74146735) % Sat, Pankaj POC (test 77 % code = 82579336) Lab Interpretation Abnormal (test code = 78917-6) [facility] VB POC docked [id number] 11:16:15 Test Item Value Reference Range Interpretation Comments pH, Pankaj POC (test code 7.32 7.33-7.43 L = 66995006) pCO2,Pankaj POC (test code 31.0 See_Comment L [Au tomated = 79820031) message] The sy stem which generated this result transmitted reference range : 38 - 50 mmHg. The reference range was not used to interpret this result as normal/abnormal . PO2, Venous POC (BKR) 44 See_Comment L [Auto mated (test code = 27091079) messa ge] The system which generated this result transmitted reference range : 50 - 75 mm Hg. The reference range was not used to interpret this result as normal/abnormal . Ionized Calcium POC 1.24 mmol/L 1.15-1.29 (test code = 32346982) HCO3, Pankaj POC (test 16 mmol/L 22-26 L code = 29773171) TCO2 POC (test code = 17 mmol/L 21-32 L 85127522) Base Deficit, Pankaj POC -9 (test code = 30405681) Sample Type (test code IVFLORENCE Physi erik Notified = 78781370) % Sat, Pankaj POC (test 77 % code = 99585794) Lab Interpretation Abnormal (test code = 15050-4) [facility] POC docked [id number] 11:16:15 Test Item Value Reference Range Interpretation Comments pH, Pankaj POC (test code 7.32 7.33-7.43 L = 46443014) pCO2,Pankaj POC (test code 31.0 See_Comment L [Au tomated = 46838409) message] The sy stem which generated this result transmitted reference range : 38 - 50 mmHg. The reference range was not used to interpret this result as normal/abnormal . PO2, Venous POC (BKR) 44 See_Comment L [Auto mated (test code = 33795202) messa ge] The system which generated this result transmitted reference range : 50 - 75 mm Hg. The reference range was not used to interpret this result as normal/abnormal . Ionized Calcium POC 1.24 mmol/L 1.15-1.29 (test code = 66773616) HCO3, Pankaj POC (test 16 mmol/L 22-26 L code = 97720530) TCO2 POC (test code = 17 mmol/L 21-32 L 59909090) Base Deficit, Pankaj POC -9 (test code = 31257306) Sample Type (test code STEPAN valencia Notified = 24222154) % Sat, Pankaj POC (test 77 % code = 55047685) Lab Interpretation Abnormal (test code = 63813-0) [facility] POC docked [id number] 11:16:15 Test Item Value Reference Range Interpretation Comments pH, Pankaj POC (test code 7.32 7.33-7.43 L = 67722784) pCO2,Pankaj POC (test code 31.0 See_Comment L [Au tomated = 15136431) message] The sy stem which generated this result transmitted reference range : 38 - 50 mmHg. The reference range was not used to interpret this result as normal/abnormal . PO2, Venous POC (BKR) 44 See_Comment L [Auto mated (test code = 74699665) Syntaxin ge] The system which generated this result transmitted reference range : 50 - 75 mm Hg. The reference range was not used to interpret this result as normal/abnormal . Ionized Calcium POC 1.24 mmol/L 1.15-1.29 (test code = 75371552) HCO3, Pankaj POC (test 16 mmol/L 22-26 L code = 19161870) TCO2 POC (test code = 17 mmol/L 21-32 L 93009730) Base Deficit, Pankaj POC -9 (test code = 96226406) Sample Type (test code STEPAN valencia Notified = 01392836) % Sat, Pankaj POC (test 77 % code = 23828755) Lab Interpretation Abnormal (test code = 19942-3) [facility] POC docked [id number] 11:16:15 Test Item Value Reference Range Interpretation Comments pH, Pankaj POC (test code 7.32 7.33-7.43 L = 22873377) pCO2,Pankaj POC (test code 31.0 See_Comment L [Au tomated = 83411816) message] The sy stem which generated this result transmitted reference range : 38 - 50 mmHg. The reference range was not used to interpret this result as normal/abnormal . PO2, Venous POC (BKR) 44 See_Comment L [Auto mated (test code = 02775088) [place]] The system which generated this result transmitted reference range : 50 - 75 mm Hg. The reference range was not used to interpret this result as normal/abnormal . Ionized Calcium POC 1.24 mmol/L 1.15-1.29 (test code = 46242237) HCO3, Pankaj POC (test 16 mmol/L 22-26 L code = 65130316) TCO2 POC (test code = 17 mmol/L 21-32 L 68362293) Base Deficit, Pankaj POC -9 (test code = 61282742) Sample Type (test code IVFLORENCE Physi erik Notified = 77590324) % Sat, Pankaj POC (test 77 % code = 37642392) Lab Interpretation Abnormal (test code = 38036-5) [facility] POC docked [id number] 11:16:15 Test Item Value Reference Range Interpretation Comments pH, Pankaj POC (test code 7.32 7.33-7.43 L = 02202682) pCO2,Pankaj POC (test code 31.0 See_Comment L [Au tomated = 93974361) message] The sy stem which generated this result transmitted reference range : 38 - 50 mmHg. The reference range was not used to interpret this result as normal/abnormal . PO2, Venous POC (BKR) 44 See_Comment L [Auto mated (test code = 38787066) [place]] The system which generated this result transmitted reference range : 50 - 75 mm Hg. The reference range was not used to interpret this result as normal/abnormal . Ionized Calcium POC 1.24 mmol/L 1.15-1.29 (test code = 07826168) HCO3, Pankaj POC (test 16 mmol/L 22-26 L code = 59515742) TCO2 POC (test code = 17 mmol/L 21-32 L 35298695) Base Deficit, Pankaj POC -9 (test code = 31576767) Sample Type (test code IVFLORENCE Physi erik Notified = 98366458) % Sat, Pankaj POC (test 77 % code = 40852822) Lab Interpretation Abnormal (test code = 42942-1) [facility] POC docked [id number] 11:16:15 Test Item Value Reference Range Interpretation Comments pH, Pankaj POC (test code 7.32 7.33-7.43 L = 62635569) pCO2,Pankaj POC (test code 31.0 See_Comment L [Au tomated = 42225018) message] The sy stem which generated this result transmitted reference range : 38 - 50 mmHg. The reference range was not used to interpret this result as normal/abnormal . PO2, Venous POC (BKR) 44 See_Comment L [Auto mated (test code = 85764722) messa ge] The system which generated this result transmitted reference range : 50 - 75 mm Hg. The reference range was not used to interpret this result as normal/abnormal . Ionized Calcium POC 1.24 mmol/L 1.15-1.29 (test code = 68998849) HCO3, Pankaj POC (test 16 mmol/L 22-26 L code = 33972942) TCO2 POC (test code = 17 mmol/L 21-32 L 41085009) Base Deficit, Pankaj POC -9 (test code = 05342801) Sample Type (test code IVFLORENCE Physi erik Notified = 64068096) % Sat, Pankaj POC (test 77 % code = 36392875) Lab Interpretation Abnormal (test code = 52069-6) [facility] POC docked [id number] 11:16:15 Test Item Value Reference Range Interpretation Comments pH, Pankaj POC (test code 7.32 7.33-7.43 L = 64873922) pCO2,Pankaj POC (test code 31.0 See_Comment L [Au tomated = 22313527) message] The sy stem which generated this result transmitted reference range : 38 - 50 mmHg. The reference range was not used to interpret this result as normal/abnormal . PO2, Venous POC (BKR) 44 See_Comment L [Auto mated (test code = 52960996) messa ge] The system which generated this result transmitted reference range : 50 - 75 mm Hg. The reference range was not used to interpret this result as normal/abnormal . Ionized Calcium POC 1.24 mmol/L 1.15-1.29 (test code = 18078957) HCO3, Pankaj POC (test 16 mmol/L 22-26 L code = 12065040) TCO2 POC (test code = 17 mmol/L 21-32 L 04637048) Base Deficit, Pankaj POC -9 (test code = 88485832) Sample Type (test code STEPAN valencia Notified = 64580959) % Sat, Pankaj POC (test 77 % code = 96443489) Lab Interpretation Abnormal (test code = 96766-9) [facility] POC docked [id number] 11:16:15 Test Item Value Reference Range Interpretation Comments pH, Pankaj POC (test code 7.32 7.33-7.43 L = 34735509) pCO2,Pankaj POC (test code 31.0 See_Comment L [Au tomated = 54987597) message] The sy stem which generated this result transmitted reference range : 38 - 50 mmHg. The reference range was not used to interpret this result as normal/abnormal . PO2, Venous POC (BKR) 44 See_Comment L [Auto mated (test code = 69485256) messa ge] The system which generated this result transmitted reference range : 50 - 75 mm Hg. The reference range was not used to interpret this result as normal/abnormal . Ionized Calcium POC 1.24 mmol/L 1.15-1.29 (test code = 63446526) HCO3, Pankaj POC (test 16 mmol/L 22-26 L code = 31375484) TCO2 POC (test code = 17 mmol/L 21-32 L 51668400) Base Deficit, Pankaj POC -9 (test code = 97987941) Sample Type (test code STEPAN valencia Notified = 75028526) % Sat, Pankaj POC (test 77 % code = 01223823) Lab Interpretation Abnormal (test code = 79718-7) [facility] POC docked [id number] 11:16:15 Test Item Value Reference Range Interpretation Comments pH, Pankaj POC (test code 7.32 7.33-7.43 L = 95688183) pCO2,Pankaj POC (test code 31.0 See_Comment L [Au tomated = 91835102) message] The sy stem which generated this result transmitted reference range : 38 - 50 mmHg. The reference range was not used to interpret this result as normal/abnormal . PO2, Venous POC (BKR) 44 See_Comment L [Auto mated (test code = 53327723) messa ge] The system which generated this result transmitted reference range : 50 - 75 mm Hg. The reference range was not used to interpret this result as normal/abnormal . Ionized Calcium POC 1.24 mmol/L 1.15-1.29 (test code = 77697838) HCO3, Pankaj POC (test 16 mmol/L 22-26 L code = 08254842) TCO2 POC (test code = 17 mmol/L 21-32 L 48215617) Base Deficit, Pankaj POC -9 (test code = 02637754) Sample Type (test code IVFLORENCE Physi erik Notified = 11149830) % Sat, Pankaj POC (test 77 % code = 85970014) Lab Interpretation Abnormal (test code = 80742-8) [facility] POC docked [id number] 11:16:15 Test Item Value Reference Range Interpretation Comments pH, Pankaj POC (test code 7.32 7.33-7.43 L = 80694435) pCO2,Pankaj POC (test code 31.0 See_Comment L [Au tomated = 04351214) message] The sy stem which generated this result transmitted reference range : 38 - 50 mmHg. The reference range was not used to interpret this result as normal/abnormal . PO2, Venous POC (BKR) 44 See_Comment L [Auto mated (test code = 83970729) Syntaxin ge] The system which generated this result transmitted reference range : 50 - 75 mm Hg. The reference range was not used to interpret this result as normal/abnormal . Ionized Calcium POC 1.24 mmol/L 1.15-1.29 (test code = 83827736) HCO3, Pankaj POC (test 16 mmol/L 22-26 L code = 77541800) TCO2 POC (test code = 17 mmol/L 21-32 L 48483739) Base Deficit, Pankaj POC -9 (test code = 27837367) Sample Type (test code IVFLORENCE Physi erik Notified = 07862965) % Sat, Pankaj POC (test 77 % code = 72687830) Lab Interpretation Abnormal (test code = 38164-1) [facility] POC docked [id number] 11:16:15 Test Item Value Reference Range Interpretation Comments pH, Pankaj POC (test code 7.32 7.33-7.43 L = 89647836) pCO2,Pankaj POC (test code 31.0 See_Comment L [Au tomated = 66696989) message] The sy stem which generated this result transmitted reference range : 38 - 50 mmHg. The reference range was not used to interpret this result as normal/abnormal . PO2, Venous POC (BKR) 44 See_Comment L [Auto mated (test code = 64164703) [employer] ge] The system which generated this result transmitted reference range : 50 - 75 mm Hg. The reference range was not used to interpret this result as normal/abnormal . Ionized Calcium POC 1.24 mmol/L 1.15-1.29 (test code = 89310453) HCO3, Pankaj POC (test 16 mmol/L 22-26 L code = 28600405) TCO2 POC (test code = 17 mmol/L 21-32 L 16884441) Base Deficit, Pankaj POC -9 (test code = 20285099) Sample Type (test code IVEN Physi erik Notified = 54201427) % Sat, Pankaj POC (test 77 % code = 36018601) Lab Interpretation Abnormal (test code = 93223-6) [facility] POC docked [id number] 11:16:15 Test Item Value Reference Range Interpretation Comments pH, Pankaj POC (test code 7.32 7.33-7.43 L = 20068631) pCO2,Pankaj POC (test code 31.0 See_Comment L [Au tomated = 66740742) message] The sy stem which generated this result transmitted reference range : 38 - 50 mmHg. The reference range was not used to interpret this result as normal/abnormal . PO2, Venous POC (BKR) 44 See_Comment L [Auto mated (test code = 15802558) [employer]] The system which generated this result transmitted reference range : 50 - 75 mm Hg. The reference range was not used to interpret this result as normal/abnormal . Ionized Calcium POC 1.24 mmol/L 1.15-1.29 (test code = 39144662) HCO3, Pankaj POC (test 16 mmol/L 22-26 L code = 88686228) TCO2 POC (test code = 17 mmol/L 21-32 L 13010934) Base Deficit, Pankaj POC -9 (test code = 76705190) Sample Type (test code IVEN Physi erik Notified = 81501041) % Sat, Pankaj POC (test 77 % code = 43536887) Lab Interpretation Abnormal (test code = 98841-5) [facility] POC docked [id number] 11:16:15 Test Item Value Reference Range Interpretation Comments pH, Pankaj POC (test code 7.32 7.33-7.43 L = 50777799) pCO2,Pankaj POC (test code 31.0 See_Comment L [Au tomated = 67098978) message] The sy stem which generated this result transmitted reference range : 38 - 50 mmHg. The reference range was not used to interpret this result as normal/abnormal . PO2, Venous POC (BKR) 44 See_Comment L [Auto mated (test code = 55686547) messa ge] The system which generated this result transmitted reference range : 50 - 75 mm Hg. The reference range was not used to interpret this result as normal/abnormal . Ionized Calcium POC 1.24 mmol/L 1.15-1.29 (test code = 42232431) HCO3, Pankaj POC (test 16 mmol/L 22-26 L code = 64606744) TCO2 POC (test code = 17 mmol/L 21-32 L 63392855) Base Deficit, Pankaj POC -9 (test code = 90635785) Sample Type (test code IVEN Physi erik Notified = 78590008) % Sat, Pankaj POC (test 77 % code = 71354407) Lab Interpretation Abnormal (test code = 99786-0) [place] [address] LEAD [id number] 20:59:5612 LEAD EKG FOR [facility] Test Date: 7477-45-98Mvc Name: DORA JOSEPH Department: 5520Patient ID: [id number] Room: Gender: Life Science Technical Officer: [id number]: 1970 Requested By: TANJA Garza Number: [id number] Reading MD: Chiara Calles MeasurementsIntervals [place] Rate: 75 P: 84PR: 153 QRS: 67QRSD: 104 T: 77QT: 344 QTc: 373 Interpretive StatementsSINUS RHYTHMPOSSIBLE RIGHT VENTRICULAR CONDUCTION DELAY [RSR (QR) IN V1/V2]Electronically Signed On 01-09-2022 8:27:19 CDT by Chiara [place] [address] LEAD [id number] 20:59:5612 LEAD EKG FOR [facility] Test Date: 5804-24-50Bhj Name: DORA JOSEPH Department: 5520Patient ID: [id number] Room: Gender: M Life Science Technical Officer: [id number]: 1970 Requested By: TANJA Garza Number: [id number] Reading MD: Chiara Calles MeasurementsIntervals [place] Rate: 75 P: 84PR: 153 QRS: 67QRSD: 104 T: 77QT: 344 QTc: 373 Interpretive StatementsSINUS RHYTHMPOSSIBLE RIGHT VENTRI CULAR CONDUCTION DELAY [RSR (QR) IN V1/V2]Electronically Signed On 01-09-2022 8:27:19 CDT by Chiara [facility] LEAD [id number] 20:59:5612 LEAD EKG FOR [facility] Test Date: 9612-76-07Rph Name: DORA JOSEPH Department: 5520Patient ID: [id number] Room: Gender: M Life Science Technical Officer: [id number]: 1970 Requested By: TANJA Garza Number: [id number] Reading MD: Chiara Calles MeasurementsIntervals [place] Rate: 75 P: 84PR: 153 QRS: 67QRSD: 104 T: 77QT: 344 QTc: 373 Interpretive StatementsSINUS RHYTHMPOSSIBLE RIGHT VENTRICULAR CONDUCTION DELAY [RSR (QR) IN V1/V2]Electronically Signed On 01-09-2022 8:27:19 CDT by [facility]araGider[employer] [place] [address] LEAD [id number] 20:59:5612 LEAD EKG FOR [facility] Test Date: 7299-12-49Pxi Name: DORA PAEZRY Department: 5520Patient ID: [id number] Room: Gender: M Life Science Technical Officer: [id number]: 1970 Requested By: TANJA Garza Number: [id number] Reading MD: Chiara Calles MeasurementsIntervals [place] Rate: 75 P: 84 GA: 153 QRS: 67QRSD: 104 T: 77QT: 344 QTc: 373 Interpretive StatementsSINUS RHYTHMPOSSIBLE RIGHT VENTRICULAR CONDUCTION DELAY [RSR (QR) IN V1/V2]Electronically Signed On 01-09-2022 8:27:19 CDT [facility] [place] [address] LEAD [id number] 20:59:5612 LEAD EKG FOR [facility] Test Date: 8235-82-31Sdq Name: DORA JOSEPH Department: 5520Patient ID: [id number] Room: Gender: M Life Science Technical Officer: [id number]: 1970 Requested By: TANJA Garza Number: [id number] Reading MD: Chiara Calles MeasurementsIntervals [place] Rate: 75 P: 84PR: 153 QRS: 67QRSD: 104 T: 77QT: 344 QTc: 373 Interpretive StatementsSINUS RHYTHMPOSSIBLE RIGHT VENTRICULAR CONDUCTION DELAY [RSR (QR) IN V1/V2]Electronically Signed On 01-09-2022 8:27:19 CDT by [facility] NetworkCinna[facility] [place] [address] LEAD [id number] 20:59:5612 LEAD EKG FOR [facility] Test Date: 8708-76-85Tmm Name: DORA JOSEPH Department: 5520Patient ID: [id number] Room: Gender: M Life Science Technical Officer: [id number]: 1970 Requested By: TANJA Garza Number: [id number] Reading MD: Chiara Calles MeasurementsIntervals [place] Rate: 75 P: 84PR: 153 QRS: 67QRSD: 104 T: 77QT: 344 QTc: 373 Interpretive StatementsSINUS RHYTHMPOSSIBLE RIGHT VENT RICULAR CONDUCTION DELAY [RSR (QR) IN V1/V2]Electronically Signed On 01-09-2022 8:27:19 CDT by [facility] CenterLaserLeapChi [facility]irmaryAlacritech [place] [address] LEAD [id number] 20:59:5612 LEAD EKG FOR [facility] Test Date: 3292-85-97Qvr Name: DORA PAEZRY Department: 5520Patient ID: [id number] Room: Gender: M Life Science Technical Officer: [id number]: 1970 Requested By: TANJA Garza Number: [id number] Reading MD: Chiara Calles MeasurementsIntervals [place] Rate: 75 P: 84PR: 153 QRS: 67QRSD: 104 T: 77QT: 344 QTc: 373 Interpretive StatementsSINUS RHYTHMPOSSIBLE RIGHT VENTRICULAR CONDUCTION DELAY [RSR (QR) IN V1/V2]Electronically Signed On 01-09-2022 8:27:19 CDT by [employer]12 LEAD [id number] 20:59:5612 LEAD EKG FOR [facility] Test Date: 7246-95-50Ndk Name: DORA JOSEPH Department: 5520Patient ID: [id number] Room: Gender: M Life Science Technical Officer: [id number]: 1970 Requested By: TANJA Garza Number: [id number] Reading MD: Chiara Calles MeasurementsIntervals [place] Rate: 75 P: 84P R: 153 QRS: 67QRSD: 104 T: 77QT: 344 QTc: 373 Interpretive StatementsSINUS RHYTHMPOSSIBLE RIGHT VENTRICULAR CONDUCTION DELAY [RSR (QR) IN V1/V2]Electronically Signed On 01-09-2022 8:27:[address]T [address] [facility]irmaryAlacritech Uyycwq70 LEAD [id number] 20:59:5612 LEAD EKG FOR [facility] Test Date: 7150-18-97Hfk Name: DORA JOSEPH Department: 5520Patient ID: [id number] Room: Gender: M Life Science Technical Officer: [id number]: 1970 Requested By: TANJA Garza Number: [id number] Reading MD: Chiara Calles MeasurementsIntervals [place] Rate: 75 P: 84PR: 153 QRS: 67QRSD: 104 T: 77QT: 344 QTc: 373 Interpretive StatementsSINUS RHYTHMPOSSIBLE RIGHT VENTRICULAR CONDUCTION DELAY [RSR (QR) IN V1/V2]Electronically Signed On 01-09-2022 8:27:19 CDT by [facility] MobilebakariExpertcloud.deChi St[facility]aryAlacritech Oygwqt88 LEAD [id number] 20:59:5612 LEAD EKG FOR [facility] Test Date: 0837-10-46Wjc Name: DORA JOSEPH Department: 5520Patient ID: [id number] Room: Gender: M Life Science Technical Officer: [id number]: 1970 Requested By: TANJA Garza Number: [id number] Reading MD: Chiara Calles MeasurementsIntervals [place] Rate: 75 P: 84PR: 153 QRS: 67QRSD: 104 T: 77QT: 344 QTc: 373 Interpretive StatementsSINUS RHYTHMPOSSIBLE RIGHT VENTR ICULAR CONDUCTION DELAY [RSR (QR) IN V1/V2]Electronically Signed On 01-09-2022 8:27:19 CDT by Chiara [employer]12 LEAD [id number] 20:59:5612 LEAD EKG FOR [facility] Test Date: 5823-65-42Ahh Name: DORA JOSEPH Department: 5520Patient ID: [id number] Room: Gender: M Life Science Technical Officer: [id number]: 1970 Requested By: TANJA Garza Number: [id number] Reading MD: Cihara Calles MeasurementsIntervals [place] Rate: 75 P: 84PR: 153 QRS: 67QRSD: 104 T: 77QT: 344 QTc: 373 Interpretive StatementsSINUS RHYTHMPOSSIBLE RIGHT VENTRICULAR CONDUCTION DELAY [RSR (QR) IN V1/V2]Electronically Signed On 01-09-2022 8:27:19 CDT by [facility] Socket MobilebakariExpertcloud.deChi St. Vincent InfirmaryDASAN Networks12 LEAD [id number] 20:59:5612 LEAD EKG FOR [facility] Test Date: 3353-94-73Pxb Name: DORA JOSEPH Department: 5520Patient ID: [id number] Room: Gender: M Life Science Technical Officer: [id number]: 1970 Requested By: TANJA Garza Number: [id number] Reading MD: Chiara Calles MeasurementsIntervals [place] Rate: 75 P: 84P R: 153 QRS: 67QRSD: 104 T: 77QT: 344 QTc: 373 Interpretive StatementsSINUS RHYTHMPOSSIBLE RIGHT VENTRICULAR CONDUCTION DELAY [RSR (QR) IN V1/V2]Electronically Signed On 01-09-2022 8:27:19 CDT by [facility] centerAmphora Medical12 LEAD [id number] 20:59:5612 LEAD EKG FOR [facility] Test Date: 4152-55-90Fti Name: DORA PAEZRY Department: 5520Patient ID: [id number] Room: Gender: M Life Science Technical Officer: [id number]: 1970 Requested By: TANJA Garza Number: [id number] Reading MD: Chiara Calles MeasurementsIntervals [place] Rate: 75 P: 84PR: 153 QRS: 67QRSD: 104 T: 77QT: 344 QTc: 373 Interpretive StatementsSINUS RHYTHMPOSSIBLE RIGHT VENTRICULAR CONDUCTION DELAY [RSR (QR) IN V1/V2]Electronically Signed On 01-09-2022 8:27:19 CDT by [facility] NetworkDragon InnovationChi St. Vincent InfirmaryAlacritech [place] [address] LEAD [id number] 20:59:5612 LEAD EKG FOR [facility] Test Date: 3067-93-63Hcl Name: DORA JOSEPH Department: 5520Patient ID: [id number] Room: Gender: M Life Science Technical Officer: [id number]: 1970 Requested By: TANJA Garza Number: [id number] Reading MD: Chiara Calles MeasurementsIntervals [place] Rate: 75 P: 84PR: 153 QRS: 67QRSD: 104 T: 77QT: 344 QTc: 373 Interpretive StatementsSINUS RHYTHMPOSSIBLE RIGHT VENT RICULAR CONDUCTION DELAY [RSR (QR) IN V1/V2]Electronically Signed On 01-09-2022 8:27:19 CDT by [facility] NetworkrobertSocket MobilebakariScott [place] [address] LEAD [id number] 20:59:5612 LEAD EKG FOR [facility] Test Date: 6881-49-76Cpf Name: DORA JOSEPH Department: 5520Patient ID: [id number] Room: Gender: M Life Science Technical Officer: [id number]: 1970 Requested By: TANJA Garza Number: [id number] Reading MD: Chiara Calles MeasurementsIntervals [place] Rate: 75 P: 84PR: 153 QRS: 67QRSD: 104 T: 77QT: 344 QTc: 373 Interpretive StatementsSINUS RHYTHMPOSSIBLE RIGHT VENTRICULAR CONDUCTION DELAY [RSR (QR) IN V1/V2]Electronically Signed On 01-09-2022 8:27:19 CDT by Chiara [facility]edaMultiCare Health W/AUTO [id number] 23:52:00 Test Item Value Reference Range Interpretation [...] = MX#) 0.8 k/mm3 0.1-0.8 N LIVER [id number] 20:04:00 Test Item Value Reference Range Interpretation Comments TOTAL PROTEIN (test code 6.7 GM/DL 5.0-8.0 N Per formed by = PROT) 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 [facility] ed Ctr ALBUMIN (test code = [...] 67 UNITS/L 25-125 N LYNDSEY) BASIC METABOLIC [id number] 19:54:00 Test Item Value Reference Range Interpretation [...] POCGLU) 81 MG/DL - CT ABD PELVIS [id number] 00:00:00 [facility] MARIA ISABEL JOSEPH : 1970 Sex: M Name: MARIA ISABEL JOSEPH FSED : 1970 Age/S: 51 / M [address] [facility] [place] Unit #: [id number] Loc: [place] [address] Phys: Raffaele Levi MD Acct: [id number] Dis Date: Status: PRE ER PHONE #: Exam Date: 09/23/20211999 FAX #: Reason: RUQ PAIN, VOMITING EXAMS: CPT CODE: [id number] CT ABD PELVIS W/CONT 72515QHDAAKLEH INFORMATION: Exam: CT Abdomen And Pelvis With [...] : 1970 Age/S: 51 / M [address] [facility] [place] Unit #: [id number] Loc: [place] [address] Phys: Raffaele Levi MD Acct: [id number] Dis Date: Status: PRE ER PHONE #: Exam Date: 09/23/20211999 FAX #: Reason: RUQ PAIN, VOMITING EXAMS: CPT CODE:[id number] CT ABD PELVIS W/CONT 74009 <Continued> abdominal small bowel loops may relate [...] (2049) PAGE 2 Signed Report COMPREHENSIVE METABOLIC [id number] 11:51:00 Test Item Value Reference Range Interpretation [...] Units/L 50.0-136.0 N code = ALKP) PROTHROMBIN [id number] 11:41:00 Test Item Value Reference Range Interpretation Comments PROTHROMBIN TIME 10.9 SECONDS 9.9-12.8 N PATIENT (test code = PTP) INTERNATIONAL NORMAL 0.9 0.89-1.14 N THE INR IS TO BE USED RATIO (test code = ONLY FOR MONITORING INR) ORAL ANTICOAGULANTTH ERAPY. THE FOLLOWING A RE SUGGESTED RANGE S FROM [facility] LEGE OF CHEST PHYSICIANS:LOLITA CATION INR [...] D ANTIBODIES 2.5 - 3.5 CBC W/AUTO [id number] 11:36:00 Test Item Value Reference Range Interpretation [...] X10 3uL 0.00-0.01 N NRBC#) CBC W/AUTO [id number] 09:48:00 Test Item Value Reference Range Interpretation [...] = MX#) 0.8 k/mm3 0.1-0.8 N GLUCOSE [id number] 06:12:00 Test Item Value Reference Range Interpretation Comments GLUCOSE BEDSIDE (test 129 MG/DL 70-110 H Perfor med by certified code = GLUBED) stitcher set up operator automatic at [facility] Ctr BASIC METABOLIC [id number] 05:21:00 Test Item Value Reference Range Interpretation [...] (test code = POCGLU) 92 MG/DL GLUCOSE [id number] 05:19:00 Test Item Value Reference Range Interpretation Comments GLUCOSE BEDSIDE (test 51 MG/DL 70-110 L Perfor med by certified code = GLUBED) stitcher set up operator automatic at [facility] C[facility] CBC W/AUTO [id number] 14:00:00 Test Item Value Reference Range Interpretation [...] MX#) 0.2 k/mm3 0.1-0.8 N CBC W/AUTO [id number] 00:07:00 Test Item Value Reference Range Interpretation [...] = LY#) 2.4 K/uL 1.0-3.8 N LIVER [id number] 16:14:00 Test Item Value Reference Range Interpretation Comments TOTAL PROTEIN (test code 7.5 GM/DL 5.0-8.0 N Per formed by = PROT) 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 [facility] ed C[facility] ALBUMIN (test code = [...] 65 UNITS/L 25-125 N LYNDSEY) BASIC METABOLIC [id number] 16:07:00 Test Item Value Reference Range Interpretation [...] POCGLU) 96 MG/DL - XR CHEST 1 [id number] 00:00:00 [facility]: PRIETO JOSEPHJUANITO NICOLAS : 1970 Sex: MFAX: Steve Urias MD [phone] [place]: [place] St: PRE Name: JOSEPHDORA FSED : 1970 Age/S: 51/M [address] [facility] [place] Unit #: [id number] Loc: [place] [address] Phys: Steve Urias MD Acct: [id number] Dis Date: Status: PRE ER PHONE #: Exam Date: 06/27/2021 0552 FAX #: Reason: Abdominal Pain EXAMS: CPT CODE: [id number] XR CHEST 1 V 19326 PROCEDURE INFORMATION: Exam: XR Chest Exam date [...] CC: Steve Urias MD Technologist: RT Alanna(R)(CT) Trngard Date/Time/By: 06/27/2021 (1558) : By: GarettJG42 Orig Print D/T: S: 06/27/2021 (0524) PAGE 1 Signed Report- CT ABD PELVIS [id number] 00:00:00 [facility] DORA JOSEPH : 1970 Sex: MName: DORA JOSEPH FSED : 1970 Age/S: 51 / M [address] [facility] [place] Unit #: [id number] Loc: [place] [address] Phys: Steve Urias MD Acct: [id number] Dis Date: Status: REG ER PHONE #: Exam Date: 06/27/2021 0262 FAX #: Reason: pain in region of colostomy EXAMS: CPT CODE: [id number] CT ABD PELVIS W/CONT 70980 PROCEDURE INFORMATION: Exam: CT Abdomen And Pelvis [...] : 1970 Age/S: 51 / M [address] [facility] [place] Unit #: [id number] Loc: [place] [address] Phys: Steve Urias MD Acct: [id number] Dis Date: Status: REG ER PHONE #: Exam Date: 06/27/2021 4953 FAX #: Reason: pain in region of colostomy EXAMS: CPT CODE: [id number] CT ABD PELVIS W/CONT 95644 <Continued>with ileostomy prolapse. There is no evidence of associated intestinal obstruction. 2. No additionalacute CT abnormalities of the abdomen or pelvis are identified. SL:131 at 1650 Reported and signed by: Marco Raman M.D. CC: Steve Urias MD Technologist:Yecenia Carbajal RT(R)(CT) CTDI: DLP: Trnscb Date/Time: 06/27/2021 (1649) tDIMAS Orig Print D/T: S: 06/27/2021 (1649) PAGE 2 Signed ReportCBC W/AUTO [id number] 09:20:00 Test Item Value Reference Range Interpretation [...] (test code NO = MDIFF) CBC W/AUTO [id number] 08:59:00 Test Item Value Reference Range Interpretation [...] REQUIRED (test code = MDIFF) BASIC METABOLIC [id number] 08:21:00 Test Item Value Reference Range Interpretation [...] 8.4 mg/dL 8.0-10.5 N CA) BASIC METABOLIC [id number] 08:34:00 Test Item Value Reference Range Interpretation [...] 8.4 mg/dL 8.0-10.5 N CA) CBC W/AUTO [id number] 07:41:00 Test Item Value Reference Range Interpretation [...] = MDIFF) UA RFLX MICR CULT IF [id number] 10:10:00 Test Item Value Reference Range Interpretation [...] 100.4 FSpecimen Description: [facility] STREAMBASIC METABOLIC [id number] 04:13:00 Test Item Value Reference Range Interpretation [...] 9.1 mg/dL 8.0-10.5 N CA) Coronavirus 2018 nCo [id number] 22:03:00 Test Item Value Reference Range Interpretation Comments Coronavirus 2019 Negative Negative Performed b y certified nCoV Bedside (mechanical equipment test engineer at [facility] code = CtrNegative res ults should [id number]) be treated as presumptive and, ifinconsis tent with clinical signs and symptoms or necessaryfor patient management, fifi uld be tested with an alternativemole cular assay. Negative result s do not preclude BTPK-ReI-4jlknj tion and should not be u sed as the sole basis forp atient management deci sions. Negative result s should beconsidered in the context of a patient's recent exposures,histo ry, presence of clinical sig ns and symptoms consis tentwith COVID-19. CBC W/AUTO [id number] 21:11:00 Test Item Value Reference Range Interpretation [...] MX#) 0.6 k/mm3 0.1-0.8 N BASIC METABOLIC [id number] 19:00:00 Test Item Value Reference Range Interpretation [...] POCGLU) 92 MG/DL - CT ABD PELVIS W/[id number] 00:00:00 [facility] DORA JOSEPH : 1970 Sex: MName: DORA JOSEPH FSED : 1970 Age/S: 51 / M [address] [facility] Unit #: [id number] Loc: [place] [address] Phys: Marcello Benoit MD Acct: [id number] Dis Date: Status: REG ER PHONE #: Exam Date: 04/28/2021 191 FAX #: Reason: epigastric and LLQ pain, R-sided colostomy EXAMS: CPT CODE: [id number] CT ABD PELVIS W/CONT 12746 PROCEDURE INFORMATION: Exam: CT Abdomen And Pelvis [...] 1 Signed Report (CONTINUED) Name: DORA JOSEPH [facility] : 1970 Age/S: 51 /M [address] [facility] Unit #: [id number] Loc: [place] [address] Phys: Marcello Benoit MD Acct: [id number] Dis Date: Status: REG ER PHONE #: Exam Date: 04/28/20211913 FAX #: Reason: epigastric a nd LLQ pain, R-sided colostomy EXAMS: CPT CODE: [id number] CT ABD PELVIS W/CONT 31008 <Continued> Reproductive: Unremarkable as visualized. Bones/joints: Unremarkable. No acute fracture. Soft tissues: Unremarkable. IMPRESSION: 1. 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 2. Mild long segment bowel wall thickening/mucosal prominence compatible with an enteritis. No evidence for obstruction. t 1955 Reported and signed by: Hector Nichols M.D. CC: Marcello Benoit MD Technologist:Stephanie Albrecht, RT(R)(CT) CTDI: DLP: Trnscb Date/Time: 04/28/2021 (1955) t.FLEXR.KWL Orig Print D/T: S: 04/28/2021 (1955) PAGE 2 Signed Report- XR ABDOMEN 1 [id number] 12:53:00 Name: DORA JOSEPH [facility] : 1970 Age/S: 50 / M [address] [facility] Unit #: [id number] Loc: [place] [address] 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 Acct: [id number] Dis Date: Status: ADM IN PHONE #: [phone] Exam Date: 02/25/2020 1036 FAX #: Reason: abdominal distention EXAMS: CPT: [id number] XR ABDOMEN 1 V 07191 Fluoro Time: DAP (Gy m2): Air Kerma [...] the left lower quadrant (not previously seen) vx4006 Reported and signed by: Sol Paige MD CC: Andre Solano; Mark Perea MD PAGE 1 Signed Report Name: DORA JOSEPH [facility] : 1970 Age/S: 50 / M [address] Unit #: [id number] Loc: [place] [address] 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 Acct: [id number] Dis Date: Status: ADM IN PHONE #: [phone] Exam Date: 02/25/2020 1036 FAX #: Reason: abdominal distention EXAMS: CPT: [id number] XR ABDOMEN 1 V 05926 Fluoro Time: DAP (Gy m2): Air Kerma (mGy): <Continued&g t; Technologist: Nichole Dill RT(R) Trnscb Date/Time: 02/25/2020 (9706) tDARWINR.EFM1 Orig PrintD/T: S: 02/25/2020 (8535) PAGE 2 Signed ReportCOMPREHENSIVE METABOLIC [id number] 08:20:00 Test Item Value Reference Range Interpretation [...] 50-136 L TOTAL (test code = ALKP) [id number] 08:20:00 Test Item Value Reference Range Interpretation Comments MAGNESIUM (test code = MAG) 2.2 MG/DL 1.8-2.4 N THYROID STIMULATING [id number] 08:20:00 Test Item Value Reference Range Interpretation Comments THYROID STIMULATING HORMONE 5.430 mcIU/ML 0.340-4.820 H (test code = TSH) CBC W/AUTO [id number] 07:55:00 Test Item Value Reference Range Interpretation [...] N NRBC#) UA RFLX MICR CULT IF [id number] 12:29:00 Test Item Value Reference Range Interpretation [...] culture: Suprapubic PainUA RFLX MICR CULT IF [id number] 12:29:00 Test Item Value Reference Range Interpretation [...] for culture: Suprapubic PainCOVID 19 Asymptomatic IH [id number] 22:09:00 Test Item Value Reference Range Interpretation [...] tent with COVID-19. - CT ABD PELVIS [id number] 21:10:00 Name: DORA JOSEPH [facility] : 1970 Age/S: 50 / M [address] Unit #: [id number] Loc: [place] [address] Phys: Evin Castellanos MD Acct: [id number] Dis Date: Status: REG ER PHONE #: [phone] Exam Date: 02/23/20202047 FAX #: Reason: diffuse abdomen pain and distention EXAMS: CPT: [id number] CT ABD PELVIS W/CONT 79496 EXAM: - CT ABD PELVIS W/CONT LOCATION: [...] 1 Signed Report (CONTINUED) Name: DORA JOSEPH [facility] : 1970 Age/S: 50 / M [address] Unit #: [id number] Loc: [place] [address] Phys: Evin Castellanos MD Acct: [id number] Dis Date: Status: REG ER PHONE #: [phone] Exam Date: 02/23/20202047 FAX #: Reason: diffuse abdomen pain and distention EXAMS: CPT: [id number] CT ABD PELVIS W/CONT 20008 <Continued> CT. No bowel wall thickening or [...] RT(R)(CT)(MRI) CTDI: DLP: Trnscb Date/Time: 02/23/2020 (2109) Candido.NW52Ajhq Print D/T: S: 02/23/2020 (2112) PAGE 2 Signed Report- XR CHEST 1 [id number] 21:03:00 Name: DORA JOSEPH [place] : 1970 Age/S: 50 / M [address] Unit #: [id number] Loc: [place] [address] Phys: Evin Castellanos MD Acct: [id number] Dis Date: Status: REG ER PHONE #: [phone] Exam Date: 02/23/20202055 FAX #: Reason: Code Sepsis EXAMS: CPT: [id number] XR CHEST 1 V 20596 Fluoro Time: DAP (Gy m2): Air Kerma (mGy): DICTATION LOCATION: 8 HISTORY: Male, 50years of age with Code [...] by: Monica Quijano MD CC: Susana Meza TOOL MAINTENANCE TECHNICIAN; Carl Luevano MD PAGE 1 Signed Report Name: DORA JOSEPH [place] : 1970 Age/S: 50 / M [address] Unit #: [id number] Loc: [place] [address] Phys: Evin Castellanos MD Acct: [id number] Dis Date:Status: REG ER PHONE #: [phone] Exam Date: 02/23/20202055 FAX #: Reason: Code Sepsis EXAMS: CPT: [id number] XR CHEST 1 V 21535 Fluoro Time: DAP (Gy m2): Air Kerma (mGy): <Continued> Technologist: Mimee Jeitler, RT(R)(CT)(MRI) Trnscb Date/Time: 02/23/2020 (2102) tLUIGI Orig Print D/T: S:02/23/2020 (2106) PAGE 2 Signed ReportBASIC METABOLIC [id number] 20:02:00 Test Item Value Reference Range Interpretation [...] 8.5-10.1 N Completed by Nursing: NOHEPATIC FUNCTION [id number] 20:02:00 Test Item Value Reference Range Interpretation [...] N code = ALKP) Completed by Nursing: [id number] 20:02:00 Test Item Value Reference Range Interpretation Comments LIPASE (test code = LIP) 97 Unit/L 114-286 L Completed by Nursing: [id number] 20:02:00 Test Item Value Reference Range Interpretation [...] brittani yby method. Completed by Nursing: NOLACTIC [id number] 19:59:00 Test Item Value Reference Range Interpretation Comments LACTIC ACID (test code = LACT) 1.2 mmol/L 0.4-2.0 N CBC W/AUTO [id number] 19:46:00 Test Item Value Reference Range Interpretation [...] CRITERIA = MDIFF) - XR ABDOMEN 2 [id number] 06:22:00 Name: DORA JOSEPH [facility] : 1970 Age/S: 50 / M [address] Unit #: [id number] Loc: [place] [address] Phys: León Robertson MD Acct: [id number] Dis Date: Status: ADM INPHONE #: [phone] Exam Date: 02/19/2020 0440 FAX #: Reason: megacolon EXAMS: CPT: [id number] XR ABDOMEN 2 V 17832 Fluoro Time: DAP (Gy m2): Air Kerma [...] PAGE 1 Signed Report Name: DORA JOSEPH [place] : 1970 Age/S: 50 / M [address] [address] Unit #: [id number] Loc: [place] [address] Phys: León Robertson MD Acct: [id number] Dis Date: Status: ADM IN PHONE #: [phone] Exam Date: 02/19/2020 0440 FAX #: Reason: megacolon EXAMS: CPT: [id number] XR ABDOMEN 2 V 15152 Fluoro Time: DAP (Gy m2): Air Kerma (mGy): <Continued> Technologist: Carrie Barnett, RT(R)(CT) Trnscb Date/Time: 02/19/2020 (621) tDARWINRLisethAL7 Orig Print D/T:S: 02/19/2020 (0670) PAGE 2 Signed ReportBASIC METABOLIC [id number] 05:52:00 Test Item Value Reference Range Interpretation [...] CA) 8.5 MG/DL 8.5-10.1 N CBC W/AUTO [id number] 05:40:00 Test Item Value Reference Range Interpretation [...] NO DIFF/SCN CRITERIA = MDIFF) BASIC METABOLIC [id number] 06:52:00 Test Item Value Reference Range Interpretation [...] CA) 8.3 MG/DL 8.5-10.1 L CBC W/AUTO [id number] 06:39:00 Test Item Value Reference Range Interpretation [...] DIFF/SCN CRITERIA = MDIFF) Coronavirus 2019 nCoV [id number] 05:35:00 Test Item Value Reference Range Interpretation Comments Coronavirus 2019 nCoV Negative NEGATIVE Per ut nufacturer, Bedside (test code = negativ e [...] tent with COVID-19. - XR ABDOMEN 1 [id number] 07:32:00 Name: DORA JOSEPH [facility] : 1970 Age/S: 49 / M [address] [address] Unit #: [id number] Loc: [place] [address] Phys: Daram,Jay Pal MD Acct: [id number] Dis Date: Status: ADM IN PHONE #: [phone] Exam Date: 01/10/2020 0658 FAX #: Reason: follow up colonic ileus EXAMS:CPT: [id number] XR ABDOMEN 1 V 19650 Fluoro Time: DAP (Gy m2): Air Kerma [...] Perea MD PAGE 1 Signed Report Name: OPALDORA MARIA ISABEL [facility] : 1970Age/S: 49 / M [address] [address] Unit #: [id number] Loc: [place] [address] Phys: Jay Mayo MD Acct: [id number] Dis Date: Status: ADM IN PHONE #: [phone] Exam Date: 01/10/2020 0658 FAX #: Reason: follow up colonic ileus EXAMS: CPT: [id number] XR ABDOMEN 1 V 95926 Fluoro Time: DAP (Gy m2): Air Kerma (mGy): <Continued> Technologist: Bakari De Leon RT(R)(CT) Trnscb Date/Time: 01/10/2020 (0732) tDARWINRLisethCB5 Orig Print D/T: S: 01/10/2020 (0736) PAGE 2 Signed ReportCOMPREHENSIVE METABOLIC [id number] 05:56:00 Test Item Value Reference Range Interpretation [...] TOTAL (test code = ALKP) CBC W/AUTO [id number] 05:42:00 Test Item Value Reference Range Interpretation [...] = NO DIFF/SCN CRITERIA MDIFF) BASIC METABOLIC [id number] 06:59:00 Test Item Value Reference Range Interpretation [...] code = CA) 8.5 MG/DL 8.5-10.1 N [id number] 06:59:00 Test Item Value Reference Range Interpretation Comments MAGNESIUM (test code = MAG) 2.2 MG/DL 1.8-2.4 PROTHROMBIN [id number] 06:39:00 Test Item Value Reference Range Interpretation Comments PT PATIENT (test code = PTP) 13.1 SECONDS 9.3-12.9 H INTERNATIONAL NORMAL RATIO 1.16 INR Unit 0.8-1.2 N (test code = INR) CBC W/AUTO [id number] 06:22:00 Test Item Value Reference Range Interpretation [...] REQUIRED (test code = NO DIFF/SCN CRITERIA MDIVAN) - XR ABDOMEN 1 [id number] 05:39:00 Name: DORA JOSEPH [place] : 1970 Age/S: 49 / M [address] [address] Unit #: [id number] Loc: [place] [address] 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 Acct: [id number] Dis Date: Status: ADM IN PHONE #: [phone] Exam Date: 01/09/2020522 FAX #: Reason: colonic ileus/obstruction EXAMS: CPT: [id number] XR ABDOMEN 1 V 28890 Fluoro Time: DAP (Gy m2): Air Kerma [...] PAGE 1 Signed Report Name: [facility]PH [facility] [place] : 1970 Age/S: 49 / M [address] [address] Unit #: [id number] Loc: [place] [address] 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 Acct: [id number] Dis Date: Status: ADM IN PHONE #: [phone] Date: 01/09/2020522 FAX #: Reason: colonic ileus/obstruction EXAMS: CPT: [id number] XR ABDOMEN 1 V 36329 Fluoro Time: DAP (Gy m2): Air Kerma (mGy): <Continued> Technologist: Carrie Barnett, RT(R)(CT) Trnscb Date/Time: 01/09/2020 (0539) t.SDR.FC Orig Print D/T: S: 01/09/2020 (3078) PAGE 2 Signed ReportCoronavirus 2018 nCoV Bedside 2020-01-08 22:38:00 Test Item Value Reference Range Interpretation Comments Coronavirus 2019 nCoV Bedside (test Negative Negative code = [id number]) Emergent procedure? YESCoronavirus 2018 nCoV [id number] 22:38:00 Test Item Value Reference Range Interpretation Comments Coronavirus 2019 nCoV Bedside (test Negative Negative code = [id number]) Emergent procedure? YESBASIC METABOLIC [id number] 18:42:00 Test Item Value Reference Range Interpretation [...] CA) 8.5 MG/DL 8.5-10.1 N CBC W/AUTO [id number] 10:50:00 Test Item Value Reference Range Interpretation [...] = NO DIFF/SCN CRITERIA MDIFF) COMPREHENSIVE METABOLIC [id number] 10:46:00 Test Item Value Reference Range Interpretation [...] 50-136 N TOTAL (test code = ALKP) [id number] 10:46:00 Test Item Value Reference Range Interpretation Comments MAGNESIUM (test code = MAG) 2.6 MG/DL 1.8-2.4 H COMPREHENSIVE METABOLIC [id number] 10:34:00 Test Item Value Reference Range Interpretation [...] TOTAL (test Unit/L 50-136 code = ALKP) [id number] 10:34:00 Test Item Value Reference Range Interpretation Comments MAGNESIUM (test code = MAG) MG/DL 1.8-2.4 - XR ABDOMEN 1 [id number] 08:28:00 Name: DORA JOSEPH [place] : 1970 Age/S: 49 / M [address] [address] Unit #: [id number] Loc: [place] [address] Phys: Yas Edwards MD Acct: [id number] Dis Date: Status: ADM IN PHONE #: [phone] Exam Date: 01/08/2020 05 FAX #: Reason: ileus EXAMS: CPT: [id number] XR ABDOMEN 1V 54772 Fluoro Time: DAP (Gy m2): Air Kerma [...] PAGE 1 Signed Report Name: DORA JOSEPH [place] : 1970 Age/S: 49 / M [address] [place] [address] Unit #: [id number] Loc: [place] [address] Phys: Yas Edwards MD Acct: [id number] Dis Date: Status: ADM IN PHONE #: [phone] Exam Date: 01/08/2020 0510 FAX #: Reason: ileus EXAMS: CPT: [id number] XR ABDOMEN 1 V 19848 Fluoro Time: DAP (Gy m2): Air Kerma (mGy): <Continued> Technologist: Carrie Barnett, RT(R)(CT); ... Trnscb Date/Time: 01/08/2020 (0828) RashadTM Orig Print D/T: S: 01/08/2020 (8594) PAGE 2 Signed ReportCOMPREHENSIVE METABOLIC [id number] 07:08:00 Test Item Value Reference Range Interpretation [...] 50-136 L TOTAL (test code = ALKP) [id number] 07:08:00 Test Item Value Reference Range Interpretation Comments MAGNESIUM (test code = MAG) 1.3 MG/DL 1.8-2.4 L COMPREHENSIVE METABOLIC [id number] 05:16:00 Test Item Value Reference Range Interpretation [...] 50-136 L TOTAL (test code = ALKP) [id number] 05:16:00 Test Item Value Reference Range Interpretation Comments MAGNESIUM (test code = MAG) 1.3 MG/DL 1.8-2.4 L CBC W/AUTO [id number] 05:02:00 Test Item Value Reference Range Interpretation [...] (test code = NO DIFF/SCN CRITERIA MDIFF) [id number] 16:51:00 Test Item Value Reference Range Interpretation Comments MAGNESIUM (test code = MAG) 2.3 MG/DL 1.8-2.4 N FE W/TOTAL IRON BINDING CAP.[id number] 16:51:00 Test Item Value Reference Range Interpretation Comments SERUM IRON (test code = IRON) 38 mcG/DL 65-175 L TOTAL IRON BINDING CAPACITY (test 322 mcG/DL 250-450 N code = TIBC) IRON SATURATION (test code = 12 % calc 12-57 N FESAT) [id number] 16:51:00 Test Item Value Reference Range Interpretation Comments FERRITIN (test code = DAVID) 17.6 NG/ML 5.0-323.0 N CALCIUM [id number] 16:50:00 Test Item Value Reference Range Interpretation Comments CALCIUM IONIZED (test code = NAVEED) 1.12 mmol/L 1.12-1.32 N - XR ABDOMEN 1 [id number] 10:29:00 Name: DORA JOSEPH Peak : 1970 Age/S: 49 / M [id number] [address] [place] Unit #: [id number] Loc: [place] [address] Phys: Verona Frost PA-C Acct: [id number] Dis Date: Status: ADM IN ONE #: [phone] Exam Date: 01/07/2020 0712 FAX #: Reason: reassess SBO EXAMS: CPT: [id number] XRABDOMEN 1 V 78228 Fluoro Time: DAP (Gy m2): Air Kerma [...] degree. 2. NG tube in place. at 1024 Reported and signed by: Sukhwinder Hinkle M.D. CC: Mark Perea MD; Verona Frost PAGE 1 Signed Report Name: DORA JOSEPH Peak : 1970 Age/S: 49 / M [address] [address] Unit #: [id number] Loc: [place] [address] Phys: Verona Frost PA-C Acct: [id number] Dis Date: Status: ADM IN PHONE #: [phone] Exam Date: 01/07/2020 0712 FAX #: Reason: reassess SBO EXAMS: CPT: [id number] XR ABDOMEN 1 V 74209 Fluoro Time: DAP(Gy m2): Air Kerma (mGy): <Continued> Technologist: Bakari De Leon RT(R)(CT) Trnscb Date/Time: 01/07/2020 (7375) t.FLEXR.AGV Orig Print D/T: S: 01/07/2020 (1101) PAGE 2 Signed ReportBASIC METABOLIC [id number] 07:01:00 Test Item Value Reference Range Interpretation [...] CA) 5.4 MG/DL 8.5-10.1 LL CBC W/AUTO [id number] 06:49:00 Test Item Value Reference Range Interpretation [...] = NO DIFF/SCN CRITERIA MDIFF) COMPREHENSIVE METABOLIC [id number] 06:10:00 Test Item Value Reference Range Interpretation [...] TOTAL (test code = ALKP) CBC W/AUTO [id number] 05:52:00 Test Item Value Reference Range Interpretation [...] DIFF/SCN CRITERIA MDIFF) - XR ABDOMEN 1 [id number] 01:30:00 Name: DORA JOSEPH Peak : 1970 Age/S: 49 / M [address] [address] Unit #: [id number] Loc: [place] [address] Phys: Ted Coleman TOOL MAINTENANCE TECHNICIAN Acct: [id number] Dis Date: Status: ADM IN PHONE #: [phone] Exam Date: 01/06/2020 010 FAX #: Reason: NG Tube Placement Verification EXAMS: CPT: [id number] XR ABDOMEN 1 V 22794 Fluoro Time: DAP (Gy m2): Air Kerma [...] PAGE 1 Signed Report Name: DORA JOSEPH Peak : 1970 Age/S: 49 / M [address] [address] Unit #: [id number] Loc: [place] [address] Phys: Ted Coleman TOOL MAINTENANCE TECHNICIAN Acct: [id number] Dis Date: Status: ADM IN PHONE #: [phone] Exam Date: 01/06/2020 0100 FAX #: Reason: N G Tube Placement Verification EXAMS: CPT: [id number] XR ABDOMEN 1 V 79754 Fluoro Time: DAP (Gy m2): Air Kerma (mGy): <Continued> Technologist: Amberly Borrero RT(R) Trnscb Date/Time: 01/06/2020 (0130) Candido.FC Orig Print D/T: S: 01/06/2020 (0133) PAGE 2 Signed Report- CT ABD PELVIS W/O [id number] 19:42:00 [place]: St: REG -- Name: DORA JOSEPH [facility] : 1970 Age/S: 49/M [address] [facility] Unit: [id number] Loc: [place], [place]: [place] [address] Acct: [id number] Dis Date: Status: REG ER PHONE #: [phone] Exam Date: 12/13/20191924 FAX #: [phone] Reason: pain EXAMS: CPT CODE: [id number] CT ABD PELVIS W/O CONT 52853 Examination: CT scan abdomen and pelvis withoutcontrast. [...] [email or web address] Orig P rint D/T: S: 12/13/2019 (1945 PAGE 1 Signed ReportBASIC METABOLIC PANEL 2019-12-13 [...] code = CA) 8.6 mg/dl 8.0-10.5 N [id number] 18:49:00 Test Item Value Reference Range Interpretation Comments LIPASE (test code = LIP) 97 Units/L 65.0-230.0 N CBC W/AUTO [id number] 18:38:00 Test Item Value Reference Range Interpretation [...] K/mm3 0.0-0.2 N - XR CHEST 1 [id number] 18:36:00 [place]: SEAN St: PRE -- Name: DORA JOSEPH [facility] : 1970 Age/S: 49/M [address] [place] [address] [address] Unit #: [id number] Loc: [place], [place]: [place] [address] Acct: [id number] Dis Date:Status: PRE ER PHONE #: [phone] Exam Date: 12/13/20191821 FAX #: [phone] Reason: SOB EXAMS: CPT CODE: [id number] XR CHEST 1 V 09313 Examination: One view chest x-ray Location code: [...] : By: GarettVR5 PAGE 1 Signed Report [place]: St: PRE ------ Name: DORA JOSEPH [facility] : 1970 Age/S: 49/M [address] [place] [address] [facility] Unit #: [id number] Loc: [place], [place]: [place] [address] Acct: [id number] Dis Date: Status: PRE ER PHONE #: [phone] Exam Date: 12/13/20191821 FAX #: [phone] Reason: SOB EXAMS: CPT CODE: [id number] XR CHEST 1 V 86901 (Continued) Orig Print D/T: S: 12/13/2019 (1838) PAGE 2 [facility]T COUNT & AUTO [id number] 08:02:00 Test Item Value Reference Range Interpretation [...] Received comment: User comments: Slide comments:BASIC METABOLIC [id number] 07:34:00 Test Item Value Reference Range Interpretation [...] S NOT APPLICABLE FOR DIALYSIS PATIEN TS. [id number] 07:26:00 Test Item Value Reference Range Interpretation Comments PHOSPHORUS (BEAKER) (test code = 3.1 mg/dL 2.3-4.7 604) [id number] 07:26:00 Test Item Value Reference Range Interpretation Comments MAGNESIUM (BEAKER) (test code = 1.6 mg/dL 1.6-2.6 627) RAD, ABDOMEN/KUB, 1 VIEW [id number] 07:04:00Reason for exam:->ileusFINAL REPORT Abdomen , one [...] MDReport Verified Date/Time: 04/03/2019 07:04:46 Reading Location: [facility] C013X Ortho Consult Reading Room BASIC METABOLIC [id number] 06:47:00 Test Item Value Reference Range Interpretation [...] code = 413) URINALYSIS WITH MICROSCOPIC IF [id number] 22:01:00 Test Item Value Reference Range Interpretation [...] 463) SOURCE(BEAKER) (test code = 2795) URINALYSIS [id number] 22:01:00 Test Item Value Reference Range Interpretation Comments RBC UA (BEAKER) (test code = 519) 18 /HPF WBC UA (BEAKER) (test code = 520) 1 /HPF CALCIUM OXALATE CRYSTALS (BEAKER) Occasional (test code = 518) [id number] 05:49:00 Test Item Value Reference Range Interpretation Comments PHOSPHORUS (BEAKER) (test code = 2.5 mg/dL 2.3-4.7 604) [id number] 05:49:00 Test Item Value Reference Range Interpretation Comments MAGNESIUM (BEAKER) (test code = 1.7 mg/dL 1.6-2.6 627) BASIC METABOLIC [id number] 05:49:00 Test Item Value Reference Range Interpretation [...] (BEAKER) (test code = 413) BASIC METABOLIC [id number] 06:19:00 Test Item Value Reference Range Interpretation [...] S NOT APPLICABLE FOR DIALYSIS PATIEN TS. [id number] 06:10:00 Test Item Value Reference Range Interpretation Comments MAGNESIUM (BEAKER) 1.8 mg/dL 1.6-2.6 Specimen slightly (test code = 627) hemolyzed [id number] 06:10:00 Test Item Value Reference Range Interpretation [...] (BEAKER) (test code = 413) BASIC METABOLIC [id number] 04:57:00 Test Item Value Reference Range Interpretation [...] S NOT APPLICABLE FOR DIALYSIS PATIEN TS. [id number] 04:55:00 Test Item Value Reference Range Interpretation Comments PHOSPHORUS (BEAKER) (test code = 2.6 mg/dL 2.3-4.7 604) [id number] 04:55:00 Test Item Value Reference Range Interpretation Comments MAGNESIUM (BEAKER) (test code = 1.8 mg/dL 1.6-2.6 627) CT, [id number] 14:16:00FINAL REPORT TECHNIQUE: CT of the abdomen [...] Kim MDReport Verified Date/Time: 03/29/2019 14:16:01Reading Location: [facility] C013Y CT Body Reading Room , ABDOMEN/KUB, 1 VIEW [id number] 10:23:00Reason for exam:->evaluate ileusFINAL REPORT Technique: Supine [...] MDReport Verified Date/Time: 03/29/2019 10:23:29 Reading Location: [facility] Reading Room [facility] (HEMOGRAM ONLY)2019-03-29 08:10:00 Test Item Value Reference [...] WBC 0-0 (BEAKER) (test code = 413) [id number] 06:20:00 Test Item Value Reference Range Interpretation Comments PHOSPHORUS (BEAKER) (test code = 2.6 mg/dL 2.3-4.7 604) [id number] 06:20:00 Test Item Value Reference Range Interpretation Comments MAGNESIUM (BEAKER) (test code = 2.0 mg/dL 1.6-2.6 627) BASIC METABOLIC [id number] 06:20:00 Test Item Value Reference Range Interpretation [...] TS. RAD, ABDOMEN SERIES W/ UPRIGHT PA [id number] 22:18:00Reason for exam:- >eval ileusFINAL REPORT CLINICAL [...] evaluation with CT abdomen pelvis. Signed: Mari Betheaort Verified Date/Time: 03/28/2019 22:18:50 RAD, ABDOMEN/KUB, 1 VIEW [id number] 11:23:00Reason for exam:->abdominal distensionShould this be performed [...] focal transition point is identified. Signed: Wendi Cruzort Verified Date/Time: 03/28/2019 11:23:34 Reading Location: [facility] Radiology Reading Room TISSUE [id number] 09:00:00Surgical Pathology Report Case: [id number] Authorizing Provider: Graciela Garrison MD Collected: 03/25/2019 1133 Ordering Location: [facility] Received: 03/25/2019 1527 SERVICES Pathologist: Jordan [...] FOR MALIGNANCY Signing Pathologist Direct Phone Line: [phone] signed by Chiara Celaya MD on 03/28/2019 at 9:00 [id number] and postop diagnosis: ileostomy statusA. End ileostomy; [...] nodes are not identified in the mesentery. Bridge Builder sections are submitted. Section code: A, livestock sales representative section of each end of first mentioned segment of small bowel; A2, livestock sales representative of first mentioned segment of small bowel mucosa; A3, area of hemorrhagic mesentery of second mentioned segment of mucosa; A4, livestock sales representative of hemorrhagicmucosa at open end of second portion of small bowel; A5, livestock sales representative of stapled margin from second [...] 0.2 cm. No gross lesions are identified. Bridge Builder sections are submitted. Section code: B1, proximal margin en face and tip; B2, livestock sales representative cross section. CG/pl Performed.[id number] 06:23:00 Test Item Value Reference Range Interpretation Comments PHOSPHORUS (BEAKER) (test code = 2.7 mg/dL 2.3-4.7 604) [id number] 06:23:00 Test Item Value Reference Range Interpretation Comments MAGNESIUM (BEAKER) (test code = 1.9 mg/dL 1.6-2.6 627) BASIC METABOLIC [id number] 06:23:00 Test Item Value Reference Range Interpretation [...] S NOT APPLICABLE FOR DIALYSIS PATIEN TS. [id number] 08:20:00 Test Item Value Reference Range Interpretation Comments PHOSPHORUS (BEAKER) (test code = 2.6 mg/dL 2.3-4.7 604) [id number] 08:20:00 Test Item Value Reference Range Interpretation Comments MAGNESIUM (BEAKER) (test code = 1.8 mg/dL 1.6-2.6 627) BASIC METABOLIC [id number] 08:20:00 Test Item Value Reference Range Interpretation [...] S NOT APPLICABLE FOR DIALYSIS PATIEN TS. [id number] 06:06:00 Test Item Value Reference Range Interpretation Comments PHOSPHORUS (BEAKER) (test code = 4.1 mg/dL 2.3-4.7 604) [id number] 06:06:00 Test Item Value Reference Range Interpretation Comments MAGNESIUM (BEAKER) (test code = 1.8 mg/dL 1.6-2.6 627) BASIC METABOLIC [id number] 06:06:00 Test Item Value Reference Range Interpretation [...] S NOT APPLICABLE FOR DIALYSIS PATIEN TS. [id number] 06:03:00 Test Item Value Reference Range Interpretation Comments PHOSPHORUS (BEAKER) (test code = 4.2 mg/dL 2.3-4.7 604) [id number] 06:03:00 Test Item Value Reference Range Interpretation Comments MAGNESIUM (BEAKER) (test code = 2.0 mg/dL 1.6-2.6 627) BASIC METABOLIC [id number] 06:03:00 Test Item Value Reference Range Interpretation [...] WBC 0-0 (BEAKER) (test code = 413) [id number] 05:52:00 Test Item Value Reference Range Interpretation Comments PHOSPHORUS (BEAKER) (test code = 4.2 mg/dL 2.3-4.7 604) [id number] 05:52:00 Test Item Value Reference Range Interpretation Comments MAGNESIUM (BEAKER) (test code = 1.9 mg/dL 1.6-2.6 627) BASIC METABOLIC [id number] 05:52:00 Test Item Value Reference Range Interpretation [...] S NOT APPLICABLE FOR DIALYSIS PATIEN TS. [id number] 06:51:00 Test Item Value Reference Range Interpretation Comments PHOSPHORUS (BEAKER) (test code = 4.3 mg/dL 2.3-4.7 604) [id number] 06:51:00 Test Item Value Reference Range Interpretation Comments MAGNESIUM (BEAKER) (test code = 2.0 mg/dL 1.6-2.6 627) BASIC METABOLIC [id number] 06:51:00 Test Item Value Reference Range Interpretation [...] 0-0 (BEAKER) (test code = 413) TISSUE [id number] 11:50:00Surgical Pathology Report Case: [id number] Authorizing Provider: Mela Larson MD Collected: 03/18/2019 1827 Ordering Location: [facility] Received: 03/21/2019 0823 SERVICES Pathologist: Jordan Celaya MD Specimen: Small Bowel, NOS A. SMALL BOWEL, ILEOSTOMY PROLAPSE, TAKEDOWN: - ANASTOMOSIS SITE WITH ACTIVE CHRONIC INFLAMMATION AND FOCAL ISCHEMIC CHANGES - MUCOSAL RESECTION MARGINS, NEGATIVE FOR MALIGNANCY - ONE BENIGN LYMPH NODE (0/1) - NEGATIVE FOR DYSPLASIA OR MALIGNANCYSigning Pathologist Direct Phone Line: [phone] signed by Jordan Celaya MDon 03/22/2019 at 11:50 [id number] of ileostomyReceived in a container labeled "small [...] 0.5 to 1.2 cm in greatest dimension. Bridge Builder sections are submitted as follows: A1-A2, mucosal resection margin, en face; A3-A6, livestock sales representative sections of the possible ostomy stump; A7-A11, serial livestock sales representative sections from mucosal resection margin to the possible ostomy stump; A12, two lymph nodes. TH/plPerformed.[id number] 06:58:00 Test Item Value Reference Range Interpretation Comments PHOSPHORUS (BEAKER) (test code = 3.8 mg/dL 2.3-4.7 604) [id number] 06:58:00 Test Item Value Reference Range Interpretation Comments MAGNESIUM (BEAKER) (test code = 2.0 mg/dL 1.6-2.6 627) BASIC METABOLIC [id number] 06:58:00 Test Item Value Reference Range Interpretation [...] PATIEN TS. CBC W/PLT COUNT & AUTO [id number] 05:42:00 Test Item Value Reference Range Interpretation [...] PERCENT (BEAKER) (test code = 2801) [place], [id number] 17:42:00Reason for exam:->evaluate for colon stricture as [...] Lopez Verified Date/Time: 03/21/2019 17:42:21 Reading Location: [address] Reading Room [id number] 03:58:00 Test Item Value Reference Range Interpretation Comments PHOSPHORUS (BEAKER) (test code = 3.0 mg/dL 2.3-4.7 604) [id number] 03:58:00 Test Item Value Reference Range Interpretation Comments MAGNESIUM (BEAKER) (test code = 2.0 mg/dL 1.6-2.6 627) BASIC METABOLIC [id number] 03:58:00 Test Item Value Reference Range Interpretation [...] PATIEN TS. CBC W/PLT COUNT & AUTO [id number] 03:20:00 Test Item Value Reference Range Interpretation [...] (BEAKER) (test code = 2801) BASIC METABOLIC [id number] 06:26:00 Test Item Value Reference Range Interpretation [...] S NOT APPLICABLE FOR DIALYSIS PATIEN TS. [id number] 06:05:00 Test Item Value Reference Range Interpretation Comments PHOSPHORUS (BEAKER) (test code = 2.2 mg/dL 2.3-4.7 L 604) [id number] 06:05:00 Test Item Value Reference Range Interpretation Comments MAGNESIUM (BEAKER) (test code = 2.0 mg/dL 1.6-2.6 627) CBC W/PLT COUNT & AUTO [id number] 05:25:00 Test Item Value Reference Range Interpretation [...] 0-1 PERCENT (BEAKER) (test code = 2801) [id number] 04:31:00 Test Item Value Reference Range Interpretation Comments PHOSPHORUS (BEAKER) (test code = 3.7 mg/dL 2.3-4.7 604) [id number] 04:31:00 Test Item Value Reference Range Interpretation Comments MAGNESIUM (BEAKER) (test code = 1.9 mg/dL 1.6-2.6 627) BASIC METABOLIC [id number] 04:31:00 Test Item Value Reference Range Interpretation [...] PATIEN TS. CBC W/PLT COUNT & AUTO [id number] 04:15:00 Test Item Value Reference Range Interpretation [...] 0-1 PERCENT (BEAKER) (test code = 2801) [id number] 06:41:00 Test Item Value Reference Range Interpretation Comments PHOSPHORUS (BEAKER) (test code = 3.1 mg/dL 2.3-4.7 604) [id number] 06:41:00 Test Item Value Reference Range Interpretation Comments MAGNESIUM (BEAKER) (test code = 1.9 mg/dL 1.6-2.6 627) BASIC METABOLIC [id number] 06:41:00 Test Item Value Reference Range Interpretation [...] PATIEN TS. CBC W/PLT COUNT & AUTO [id number] 06:36:00 Test Item Value Reference Range Interpretation [...] PERCENT (BEAKER) (test code = 2801) CT, [id number] 17:04:00No PO contrastFINAL REPORT ABDOMINAL AND PELVIS [...] MDReport Verified Date/Time: 03/17/2019 17:04:19 Reading Location: [address] Body Reading Room XR ABDOMEN 2 [id number] 09:03:45XR ABDOMEN 2 VIEWSLOCATION: [id number]: Colstomy ProlapseCOMPARISON: Chest radiograph 04/15/2017, CT of [...] Nonspecific, nonobstructive bowel gas pattern.XR CHEST 1 [id number] 11:32:15EXAM: CHEST ONE VIEWINDICATION: Chest painCOMPARISON: None availableTECHNIQUE: AP view of the chest.FINDINGS: The cardiomediastinal silhouette is normal. The lungs are clearbilaterally. No pneumothoraxor pleural effusion is identified. Theosseous structures are unremarkable.IMPRESSION: No acute cardiopulmonary process.LOCATION: S15Vchpx Type and [id number] 21:21:00 Test Item Value Reference Range Interpretation Comments ABO type (test code = ABO) O Rh Type (test code = RH) Positive Comprehensive Metabolic [id number] 20:36:00 Test Item Value Reference Range Interpretation [...] the National Kidney Foundation,http ://nkd ep.nih.gov Alcohol/Ethanol, [id number] 20:36:00 Test Item Value Reference Range Interpretation Comments Alcohol, Ethyl <0.01 g/dL 0.00-0.01 N Intoxicated 0 .080 g/dL (test code = ETOH) or more Prothrombin [id number] 20:00:00 Test Item Value Reference Range Interpretation Comments PT (test code = PT) 10.10 seconds 9.78-13.35 N INR (test code = INR) 0.88 Ratio 0.6-1.2 N Partial Thromboplastin [id number] 20:00:00 Test Item Value Reference Range Interpretation Comments aPTT (test code = PTT) 31.50 seconds 24.39-37.25 N CBC with [id number] 19:50:00 Test Item Value Reference Range Interpretation [...] code = ALYMPH) 2.2 K/cumm 0.5-4.6 N [place] Abs (test code = AMONO) 0.4 K/cumm 0.0-1.2 N Eos Abs (test code = AEOS) 0.17 K/cumm 0.00-0.74 N Baso Abs (test code = ABASO) 0.0 K/cumm 0.00-0.21 N 66418& PELVIS W/O [id number] 17:36:28CT ABDOMEN AND PELVIS WITHOUT CONTRAST.CLINICAL HISTORY: [...]
--- NOTE | 2022-08-31 11:15 | ER ---
Nurse's Notes [facility] Name: Rico Mcneill Age: 52 yrs Sex: Male : 1970 Arrival Date: 08/31/2022 Time: 10:12 Bed 15 Private MD: Diagnosis: Encounter for attention to ileostomy Presentation: 08/31 10:17 Chief complaint: EMS states: HE NEEDS A NEW ILIOSTOMY BAG. Coronavirus screen: At this bp time, the client does not indicate any symptoms associated with coronavirus-19. Ebola Screen: No symptoms or risks identified at this time. Initial Sepsis Screen: Does the patient meet any 2 criteria? No. Patient's initial sepsis screen is negative. Does the patient have a suspected source of infection? No. Patient's initial sepsis screen is negative. Risk Assessment: Do you want to hurt yourself or someone else? Patient reports no desire to harm self or others. Onset of symptoms is unknown. 10:17 Method Of Arrival: EMS: [facility] bp 10:17 Acuity: OCTAVIO 5 bp Triage Assessment: 10:18 General: Appears in no apparent distress. Behavior is appropriate for age. Pain: Denies bp pain. EENT: No deficits noted. Neuro: No deficits noted. Cardiovascular: No deficits noted. Respiratory: No deficits noted. GI: Ileostomy site. : No signs and/or symptoms were reported regarding the genitourinary system. Derm: No deficits noted. Musculoskeletal: No deficits noted. Historical: - Allergies: 10:18 NKDA; bp - PMHx: 10:18 ileostomy; bp - PSHx: 10:18 Small bowel resection with ileostomy; bp - Immunization history:: Adult Immunizations unknown. - Social history:: Smoking status: Patient reports the use of cigarette tobacco products, unknown amount. - Family history:: not pertinent. - Hospitalizations: : No recent hospitalization is reported. Screenin:[address] [facility] ED Fall Risk Assessment (Adult) History of falling in the last 3 months, bp including since admission No falls in past 3 months (0 pts). Abuse screen: Denies threats or abuse. Denies injuries from another. Nutritional screening: No deficits noted. Tuberculosis screening: No symptoms or risk factors identified. Assessment: 10:19 General: SEE TRIAGE NOTE. bp 12:17 Reassessment: PT DC AMBULATORY. bp Vital Signs: 10:17 BP 91 / 65; Pulse 76; Resp 18; Temp 98.8(O); Pulse Ox 100% on R/A; tm3 10:17 BP 107 / 64; Pulse 78; Resp 16; Temp 98; Pulse Ox 99% ; bp 12:17 BP 100 / 69; Pulse 74; Resp 16; Pulse Ox 100% ; bp ED Course: 10:12 Patient arrived in ED. eb 10:14 Theodore Whyte MD is Attending Physician. rn 10:17 Raffaele Chan, RN is Primary Nurse. bp 10:18 Triage completed. bp 10:18 Arm band placed on. bp 10:19 Patient has correct armband on for positive identification. Bed in low position. Call bp light in reach. Side rails up X2. 12:17 No provider procedures requiring assistance completed. Patient did not have IV access bp during this emergency room visit. Administered Medications: No medications were administered Medication: 10:19 VIS not applicable for this client. bp Outcome: 11:14 Discharge ordered by . rn 12:17 Discharged to home ambulatory. bp 12:17 Condition: stable 12:17 Discharge instructions given to patient, Instructed on discharge instructions, follow up and referral plans. Demonstrated understanding of instructions, follow-up care. 12:18 Patient left the ED. bp Signatures: PinaRocky tm3 Theodore Whyte MD MD rn Peltier, Brian, RN RN Jessica Germain
--- NOTE | 2022-08-31 11:16 | EDPHYS ---
Physician Documentation [facility] Name: Rico Mcneill Age: 52 yrs Sex: Male : 1970 Arrival Date: 08/31/2022 Time: 10:12 Bed 15 Private MD: ED Physician Theodore Whyte HPI: 08/31 11:10 This 52 yrs old Male presents to ER via EMS with complaints of ostomy problem. rn 11:10 Pt reports hx of colostomy, ran out of bags recently, reports mild discomfort at stoma rn but no fever/chills/vomiting. Having normal stool output. No trauma. Pt has come in multiple times in past for ostomy bags. . Onset: The symptoms/episode began/occurred at an unknown time. Severity of symptoms: At their worst the symptoms were mild in the emergency department the symptoms are unchanged. The patient has experienced similar episodes in the past. The patient has not recently seen a physician. Historical: - Allergies: 10:18 NKDA; bp - PMHx: 10:18 ileostomy; bp - PSHx: 10:18 Small bowel resection with ileostomy; bp - Immunization history:: Adult Immunizations unknown. - Social history:: Smoking status: Patient reports the use of cigarette tobacco products, unknown amount. - Family history:: not pertinent. - Hospitalizations: : No recent hospitalization is reported. ROS: 11:10 Constitutional: Negative for fever, chills, and weight loss, Cardiovascular: Negative rn for chest pain, palpitations, and edema, Respiratory: Negative for shortness of breath, cough, wheezing, and pleuritic chest pain, Abdomen/GI: Negative for abdominal pain, nausea, vomiting, diarrhea, and constipation, Skin: Negative for injury, rash, and discoloration. Exam: 11:10 Constitutional: This is a well developed, well nourished patient who is awake, alert, rn and in no acute distress. Cardiovascular: Regular rate and rhythm. No pulse deficits. Respiratory: No increased work of breathing, no retractions or nasal flaring. Abdomen/GI: Soft, non-tender, no evidence of infection, old and dirty ostomy bag in place, no leakage or purulence. No tenderness of abdomen away from ostomy. Skin: Warm, dry Vital Signs: 10:17 BP 91 / 65; Pulse 76; Resp 18; Temp 98.8(O); Pulse Ox 100% on R/A; tm3 10:17 BP 107 / 64; Pulse 78; Resp 16; Temp 98; Pulse Ox 99% ; bp 12:17 BP 100 / 69; Pulse 74; Resp 16; Pulse Ox 100% ; bp MDM: 10:14 Patient medically screened. rn 11:10 Differential Diagnosis ostomy complication, dirty ostomy, needs attention to ostomy. rn Data reviewed: vital signs, nurses notes, old medical records, and as a result, I will discharge patient. Counseling: I had a detailed discussion with the patient and/or guardian regarding: the historical points, exam findings, and any diagnostic results supporting the discharge/admit diagnosis, the need for outpatient follow up, to return to the emergency department if symptoms worsen or persist or if there are any questions or concerns that arise at home. Response to treatment: the patient's symptoms have mildly improved after treatment, and as a result, I will discharge patient. Special discussion: I discussed with the patient/guardian in detail that at this point there is no indication for admission to the hospital. It is understood, however, that if the symptoms persist or worsen the patient needs to return immediately for re-evaluation. ED course: Pt without acute medical complaint, seems is here for for replacement bags, care is effected by SDOH of no access to medical supplies and homelessness. Stable vitals. No indication for emergent bloodwork or imaging.. Administered Medications: No medications were administered Disposition Summary: 08/31/22 11:14 Discharge Ordered Location: Home rn Problem: new rn Symptoms: have improved rn Condition: Stable rn Diagnosis - Encounter for attention to ileostomy rn Followup: rn - With: Private Physician - When: As needed - Reason: Recheck today's complaints, Re-evaluation by your physician Discharge Instructions: - Discharge Summary Sheet rn - Ileostomy Home Guide rn Forms: - Medication Reconciliation Form rn - Thank You Letter rn - Antibiotic yarn weight and strength tester - Prescription Opioid Use rn Signatures: Theodore Whyte MD MD rn Peltier, Brian RN RN bp
[2022-08-31 12:26] VITALS: BP 100/69; TEMP 98.8; O2SAT 100
== END 2022-08-31 12:18 | disposition home or self-care (01) ==
LOC: ER 10:10
DX: Z43.2 Encounter for attention to ileostomy (principal)
CPT/HCPCS: 99283

== ENCOUNTER 2022-09-03 14:47 | Inpatient (IN) | payer SELFPAY ==
--- OUTSIDE RECORDS SUMMARY | 2022-09-03 15:02 | XMS REPORT | Continuity of Care Document ---
:[address] [facility] t Address [address] [address] [address] [place] [address] Support Name Relationship Address Phone UPDATE, UPDATE [place] [address] UPDATE, [place] [address] NONE, PER PT [place] [address] JOYCE MARION Unavailable [phone] NO, NAME SELF . [phone] [place] [address] FLACO HOPE Unavailable [address] [place] [address] [phone] [place] [address] NONE, NONE Unavailable [address] [place] [address] NONE, NONE Unavailable [address] [phone] [place] [address] NONE, OTHER Unavailable NO KNOWN ADDRESS [phone] [place] [address] NONE, OTHER Unavailable [address] [phone] [place] [address] NONE, OTHER SA [address] [facility] [phone] [place] [address] NONE, OTHER SA [address] [place] [address] JOYCE LEIJA Unavailable UNK [phone] [place] [address] NONE, PERSON Unavailable [id number] [place] [id number] NONE, NONE Unavailable [address] [place] [address] Care Team Providers Name Role Phone UNKNOWN, REFFERING Primary Care Physician Unavailable Coco Nova Attending Clinician Unavailable Mark Perea Attending Clinician Unavailable Steve Urias Attending Clinician Unavailable YESSI RAMOS Attending Clinician Unavailable NELSON GARCIA Attending Clinician Unavailable KENDRA CARDENAS Attending Clinician Unavailable ANYA, LEÓN MUIR Attending Clinician Unavailable Aryan Tello MD Attending Clinician [phone] Marty CAPONE, Dee Dee Nelson Attending Clinician Shiela CAPONE, EduarebenezerZander Attending Clinician Pao Barton MD Attending Clinician Anya CAPONE, León Muir Attending Clinician [phone] Teddy Carbajal MD Attending Clinician Bernabe Calvert [...] Clinician Lindsey Escobar, Steve Santana Attending Clinician [phone] KARIN BASSETT Attending Clinician Unavailable Bert Reed MD Attending Clinician Helene Ring MD Attending Clinician Mersisa Malhotra Attending Clinician HELENE RING Attending Clinician [...] Clinician Unavailable MARI MEIER Admitting Clinician Unavailable STEEV LUCAS Admitting Clinician Unavailable MERISSA RICHARDS Admitting Clinician Unavailable Marcello Leonard Admitting Clinician Unavailable CINDA ROTHMAN Admitting Clinician Unavailable MELA LARSON Admitting Clinician Unavailable VANIA PERAZA Admitting Clinician Unavailable Payers Payer Name Policy Type Policy Number Effective Date Expiration Date Jessica rowland [facility] [id number] 2019 ADMIT 00:00:00 Problems Condition Condition Condition Status Onset Resolution Last Treating Co mments Source Name Details Category Date Date Treatment Clinician Date Lightheade Lightheade Disease Active [facility] Altered Altered Disease Active [facility] bowel bowel 01-19 [facility] eliminatio eliminatio 00:00: n due to n due to 00 intestinal intestinal ostomy ostomy Acute Acute Disease Active [facility] kidney kidney 5-20 [facility] injury injury 00:00: 00 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 [facility]27 [facility] resection resection 00:00: Medi mariusz 00 Center Intestinal Intestinal Disease Active [facility] stoma stoma 03-17 [facility] prolapse prolapse 00:00: Medica l 00 [place] Disorder Disorder Disease Active [facility] stoma of stoma 15 Health 00:00: 00 Dehydratio Dehydratio Disease Active H arris n n Health Encounter Encounter Disease Active Compa ris for ostomy for ostomy He [facility] care care education education ALMA [...] U [facility] Allergie 6-09 [facility] s 00:00: [facility] [place] 00 [facility] No Known DA Active U 2020-08 [facility] Allergie 1-29 [facility] 00:00: d 00 [facility] No Known DA Active U [facility] Allergie 9-05 Clear s 00:00: [facility] No Known DA Active U [facility] Allergie 9-05 Clear s 00:00: [facility] No Known DA Active U [facility] Allergie 7-03 Clear s 00:00: [facility] No Known DA Active U [facility] Allergie 5-14 Clear s 00:00: [facility] No Known DA Active U [facility] All[facility]ie 7-07 [place] 00:00: d 00 [facility] Center NO KNOWN Allergy Active [facility] [...] Alcohol intake 2022-02-18 2022-02-18 Current drinker of [place] 00:00:00 00:00:00 alcohol (finding) History [facility] 2019-03-17 2019-03-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 [facility] Alcohol Comment 00:00:00 00:00:00 Medical C enter Tobacco use and 2019-03-17 2019-03-[address] [facility] exposure 00:00:00 00:00:00 Medical Center History SDMA Food 2017-04-14 2017-04-14 1 [facility] Worry 00:00:00 00:00:00 History SDMA Food 2017-04-14 2017-04-[address] [facility] Scarcity 00:00:00 00:00:00 Sex [birth year] Maged Douglas alth 00:00:00 00:00:00 Smoking Status Start Date Stop Date Source Never smoker [facility] Medications Ordered Filled Start Stop [...] ferrous No Altered 325mg QD Take 1 [place] ris sulfate 325 6-30 08-29 bowel tablet [...] intestinal ostomy loperamide 2021- No Altered 4mg Q.95815404 Take 2 [facility] (IMODIUM) 2 02-20 bowel [id number] capsules Health mg capsule 00:00: 23:59 elimination [...] intestinal ostomy loperamide 2021- No Altered 4mg Q.69644246 Take 2 [facility] (IMODIUM) 2 02-20 bowel [id number] capsules Health mg capsule 00:00: 23:59 elimination [...] intestinal ostomy loperamide 2021- No Altered 4mg Q.80570142 Take 2 [place] (IMODIUM) 2 02-20 bowel [id number] capsules Health mg capsule 00:00: 23:59 elimination [...] intestinal ostomy loperamide 2021- No Altered 4mg Q.32142271 Take 2 [facility] (IMODIUM) 2 02-20 bowel [id number] capsules Health mg capsule 00:00: 23:59 elimination [...] intestinal ostomy loperamide 2021- No Altered 4mg Q.47416459 Take 2 [facility] (IMODIUM) 2 02-20 bowel [id number] capsules Health mg capsule 00:00: 23:59 elimination [...] intestinal ostomy loperamide 2021- No Altered 4mg Q.53631256 Take 2 [facility] (IMODIUM) 2 02-20 bowel [id number] capsules Health mg capsule 00:00: 23:59 elimination [...] intestinal ostomy loperamide 2021- No Altered 4mg Q.08817404 Take 2 [place] (IMODIUM) 2 02-20-30 bowel [id number] capsules Health mg capsule 00:00: 23:59 elimination [...] intestinal ostomy loperamide 2021- No Altered 4mg Q.12747823 Take 2 [place] (IMODIUM) 2 02-20-30 bowel [id number] capsules Health mg capsule 00:00: 23:59 elimination [...] intestinal ostomy loperamide 2021- No Altered 4mg Q.59701672 Take 2 [place] (IMODIUM) 2 02-20-30 bowel [id number] capsules Health mg capsule 00:00: 23:59 elimination [...] intestinal ostomy loperamide 2021- No Altered 4mg Q.40055055 Take 2 [place] (IMODIUM) 2 02-20-30 bowel [id number] capsules Health mg capsule 00:00: 23:59 elimination [...] intestinal ostomy loperamide 2021- No Altered 4mg Q.77418070 Take 2 [place] (IMODIUM) 2 02-20-30 bowel [id number] capsules Health mg capsule 00:00: 23:59 elimination [...] intestinal ostomy loperamide 2021- No Altered 4mg Q.01584087 Take 2 [place] (IMODIUM) 2 02-2030 bowel [id number] capsules Health mg capsule 00:00: 23:59 elimination [...] intestinal ostomy loperamide 2021- No Altered 4mg Q.91298808 Take 2 [place] (IMODIUM) 2 02-20 bowel [id number] capsules Health mg capsule 00:00: 23:59 elimination [...] intestinal ostomy loperamide 2021- No Altered 4mg Q.67963508 Take 2 [place] (IMODIUM) 2 02-20-30 bowel [id number] capsules Health mg capsule 00:00: 23:59 elimination [...] Lynne (METAMUCIL) 02-20- bowel t} Packet by [facility] 6 gram PwPk 00:00: 23:59 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 loperamide 2021- No Altered 4mg Q.74128246 Take 2 [place] (IMODIUM) 2 02-20-30 bowel [id number] capsules Health mg capsule 00:00: 23:59 elimination [...] Lynne (METAMUCIL) 02-2030 bowel t} Packet by [facility] 6 gram PwPk 00:00: 23:59 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 loperamide 2021- No Altered 4mg Q.99939836 Take 2 [place] (IMODIUM) 2 02-20 bowel [id number] capsules Health mg capsule 00:00: 23:59 elimination [...] (METAMUCIL) 6 06-30 bowel t} Packet by H ealth [...] (METAMUCIL) 02-11 06-30 bowel t} Packet by H ealth [...] Lynne (METAMUCIL) 02-1130 bowel t} [facility] by [facility] 6 gram PwPk 00:00: 00:00 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 psyllium 2021- No Altered 1{packe Take 1 [place] (METAMUCIL) 02-11 bowel t} Packet by [facility] 6 gram PwPk 00:00: 00:00 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 psyllium 2021- No Altered 1{packe Take 1 [place] (METAMUCIL) 02-1130 bowel t} Packet by [facility] 6 gram PwPk 00:00: 00:00 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 psyllium 2021- No Altered 1{packe Take 1 [place] (METAMUCIL) 02-1130 bowel t} Packet by [facility] 6 gram PwPk 00:00: 00:00 elimination [...] Momin rris acid, 01-21 bowel tablet by [employer] vitamin C, 00:00: 23:59 elimination mouth 250 mg 00 :00 due to daily for tablet intestinal 60 days ostomy magnesium 2021- No Altered 800mg Q.5D Take 2 H arris oxide 01-21 bowel tablets by [employer] (MAG-OX) 00:00: 23:59 elimination mouth 2 400 [...] Momin rris acid, 01-21 bowel tablet by [employer] vitamin C, 00:00: 23:59 elimination mouth 250 mg 00 :00 due to daily for tablet intestinal 60 days ostomy magnesium 2021- No Altered 800mg Q.5D Take 2 H arris oxide 01-21 bowel tablets by [employer] (MAG-OX) 00:00: 23:59 elimination mouth 2 400 [...] Momin rris acid, 01-21 bowel tablet by [employer] vitamin C, 00:00: 23:59 elimination mouth 250 mg 00 :00 due to daily for tablet intestinal 60 days ostomy magnesium 2021- No Altered 800mg Q.5D Take 2 H arris oxide 01-21 bowel tablets by [facility] (MAG-OX) 00:00: 23:59 elimination mouth 2 400 mg 00 :00 due to times (241.3 mg intestinal daily for magnesium) ostomy 60 days tablet multivitami 2021- No Altered 1{tbl} QD Take 1 [place] n with 01-21 bowel tablet by [facility] folic acid 00:00: 23:59 elimination mouth (THERA) 400 00 :00 due to daily for mcg tablet intestinal 60 days ostomy ascorbic 2021- No Altered 250mg QD Take 1 Momin rris acid, 01-21 bowel tablet by [facility] vitamin C, 00:00: 23:59 elimination mouth 250 mg 00 :00 due to daily for tablet intestinal 60 days ostomy magnesium 2021- No Altered 800mg Q.5D Take 2 H arris oxide 01-21 bowel tablets by [facility] ([facility]) 00:00: 23:59 elimination mouth 2 400 mg 00 :00 due to times (241.3 mg intestinal daily for magnesium) ostomy 60 days tablet multivitami 2021- No Altered 1{tbl} QD Take 1 [place]ne n with 01-21 bowel tablet by [facility] folic acid 00:00: 23:59 elimination mouth (THERA) 400 00 :00 due to daily for mcg tablet intestinal 60 days ostomy ascorbic 2021- No Altered 250mg QD Take 1 Momin rris acid, 01-21 bowel tablet by [facility] vitamin C, 00:00: 23:59 elimination mouth 250 mg 00 :00 due to daily for tablet intestinal 60 days ostomy magnesium 2021- No Altered 800mg Q.5D Take 2 H arris oxide 01-21 bowel tablets by [facility] ([facility]) 00:00: 23:59 elimination mouth 2 400 mg [...] Momin rris acid, 01-21-30 bowel tablet by [facility] vitamin C, 00:00: 23:59 elimination mouth 250 mg 00 :00 due to daily for tablet intestinal 60 days ostomy magnesium 2021- No Altered 800mg Q.5D Take 2 H arris oxide 5- 07-30 bowel tablets by [facility] (MAG-OX) 00:00: 23:59 elimination mouth 2 [...] Momin rris acid, 01-21-30 bowel tablet by [employer] vitamin C, 00:00: 23:59 elimination mouth 250 mg 00 :00 due to daily for tablet intestinal 60 days ostomy magnesium 2021- No Altered 800mg Q.5D Take 2 H arris oxide -23 03-30 bowel tablets by [employer] (MAG-OX) 00:00: 23:59 elimination mouth 2 400 [...] rris acid, 5- 07-30 bowel tablet by [employer] vitamin C, 00:00: 23:59 elimination mouth 250 mg 00 :00 due to daily for tablet intestinal 60 days ostomy magnesium 2021- No Altered 800mg Q.5D Take 2 H arris oxide 5- 07-30 bowel tablets by [facility] (MAG-OX) 00:00: 23:59 elimination mouth 2 400 mg 00 :00 due to times (241.3 mg intestinal daily for magnesium) ostomy 60 days tablet multivitami 2021- No Altered 1{tbl} QD Take 1 [place]ne n with 5-30 bowel tablet by [facility] folic acid 00:00: 23:59 elimination mouth (THERA) 400 00 :00 due to daily for mcg tablet intestinal 60 days ostomy ascorbic 2021- No Altered 250mg QD Take 1 Momin rris acid, 01-21- bowel tablet by [facility] vitamin C, 00:00: 23:59 elimination mouth 250 mg 00 :00 due to daily for tablet intestinal 60 days ostomy magnesium 2021- No Altered 800mg Q.5D Take 2 H arris oxide 01-21-30 bowel tablets by [employer] (MAG-OX) 00:00: 23:59 elimination mouth 2 400 mg 00 :00 due to times (241.3 mg intestinal daily for magnesium) ostomy 60 days tablet multivitami 2021- No Altered 1{tbl} QD Take 1 [place]ne n with 01-2130 bowel tablet by [facility] folic acid 00:00: 23:59 elimination mouth (THERA) 400 00 :00 due to daily for mcg tablet intestinal 60 days ostomy ascorbic 2021- No Altered 250mg QD Take 1 Momin rris acid, 01-21 bowel tablet by [facility] vitamin C, 00:00: 23:59 elimination mouth 250 mg 00 :00 due to daily for tablet intestinal 60 days ostomy magnesium 2021- No Altered 800mg Q.5D Take 2 H arris oxide 01-21-30 bowel tablets by [employer] (MAG-OX) 00:00: 23:59 elimination mouth 2 400 mg 00 :00 due to times (241.3 mg intestinal daily for magnesium) ostomy 60 days tablet multivitami 2021- No Altered 1{tbl} QD Take 1 [place]ne n with 5-23 03-30 bowel tablet by [facility] folic acid 00:00: 23:59 elimination mouth (THERA) 400 00 :00 due to daily for mcg tablet intestinal 60 days ostomy ascorbic 2021- No Altered 250mg QD Take 1 Momin rris acid, 01-21-30 bowel tablet by [facility] vitamin C, 00:00: 23:59 elimination mouth 250 mg 00 :00 due to daily for tablet intestinal 60 days ostomy magnesium 2021- No Altered 800mg Q.5D Take 2 H arris oxide 5-23 03-30 bowel tablets by [facility] (MAG-OX) 00:00: 23:59 elimination mouth 2 400 mg 00 :00 due to times (241.3 mg intestinal daily for magnesium) ostomy 60 days tablet multivitami 2021- No Altered 1{tbl} QD Take 1 [place]ne n with 01-21-30 bowel tablet by [facility] folic acid 00:00: 23:59 elimination mouth (THERA) 400 00 :00 due to daily for mcg tablet intestinal 60 days ostomy ascorbic 2021- No Altered 250mg QD Take 1 Momin rris acid, 01-21-30 bowel tablet by [facility] vitamin C, 00:00: 23:59 elimination mouth [...] Lynne n with 01-21-30 bowel tablet by [facility] folic acid 00:00: 23:59 elimination mouth (THERA) 400 00 :00 due to daily for mcg tablet intestinal 60 days ostomy ascorbic 2021- No Altered 250mg QD Take 1 Momin rris acid, 01-21-30 bowel tablet by [facility] vitamin C, 00:00: 23:59 elimination mouth 250 mg 00 :00 due to daily for tablet intestinal 60 days ostomy magnesium 2021- No Altered 800mg Q.5D Take 2 H arris oxide 5- 07-30 bowel tablets by [employer] (MAG-OX) 00:00: 23:59 elimination mouth 2 400 [...] rris acid, -23 03-30 bowel tablet by [facility] vitamin C, 00:00: 23:59 elimination mouth 250 mg 00 :00 due to daily for tablet intestinal 60 days ostomy magnesium 2021- No Altered 800mg Q.5D Take 2 H arris oxide -23 03-30 bowel tablets by [facility] (MAG-OX) 00:00: 23:59 elimination mouth 2 [...] arris oxide -23 03-30 bowel tablets by [employer] (MAG-OX) 00:00: 23:59 elimination mouth 2 400 [...] Lynne n with 01-21-30 bowel tablet by [facility] folic acid 00:00: 23:59 elimination mouth [...] days ostomy loperamide 2021- No Altered 4mg Q.54666491 Take 2 [place] (IMODIUM) 2 01-21-30 bowel [id number] capsules Health mg capsule 00:00: 00:00 elimination [...] days ostomy loperamide 2021- No Altered 4mg Q.76102955 Take 2 [place] (IMODIUM) 2 01-21-30 bowel [id number] capsules Health mg capsule 00:00: 00:00 elimination [...] days ostomy loperamide 2021- No Altered 4mg Q.78712946 Take 2 [place] (IMODIUM) 2 01-21-30 bowel [id number] capsules Health mg capsule 00:00: 00:00 elimination [...] days ostomy loperamide 2021- No Altered 4mg Q.75447918 Take 2 [place] (IMODIUM) 2 --30 bowel [id number] capsules Health mg capsule 00:00: 00:00 elimination [...] days ostomy loperamide 2021- No Altered 4mg Q.13823939 Take 2 [place] (IMODIUM) 2 --30 bowel [id number] capsules Health mg capsule 00:00: 00:00 elimination [...] days ostomy loperamide 2021- No Altered 4mg Q.29000271 Take 2 [place] (IMODIUM) 2 01-21-30 bowel [id number] capsules Health mg capsule 00:00: 00:00 elimination [...] days ostomy loperamide 2021- No Altered 4mg Q.63162716 Take 2 [place] (IMODIUM) 2 01-21-30 bowel [id number] capsules Health mg capsule 00:00: 00:00 elimination [...] days ostomy loperamide 2021- No Altered 4mg Q.24240874 Take 2 [place] (IMODIUM) 2 01-21-30 bowel [id number] capsules Health mg capsule 00:00: 00:00 elimination [...] days ostomy loperamide 2021- No Altered 4mg Q.37991997 Take 2 [place] (IMODIUM) 2 01-21-30 bowel [id number] capsules Health mg capsule 00:00: 00:00 elimination [...] days ostomy loperamide 2021- No Altered 4mg Q.48144474 Take 2 [place] (IMODIUM) 2 --30 bowel [id number] capsules Health mg capsule 00:00: 00:00 elimination [...] days ostomy loperamide 2021- No Altered 4mg Q.21222809 Take 2 [place] (IMODIUM) 2 01-21-30 bowel [id number] capsules Health mg capsule 00:00: 00:00 elimination [...] days ostomy loperamide 2021- No Altered 4mg Q.82803126 Take 2 [place] (IMODIUM) 2 01-21-30 bowel [id number] capsules Health mg capsule 00:00: 00:00 elimination [...] days ostomy loperamide 2021- No Altered 4mg Q.98735310 Take 2 [place] (IMODIUM) 2 01-21- bowel [id number] capsules Health mg capsule 00:00: 00:00 elimination [...] days ostomy loperamide 2021- No Altered 4mg Q.58430438 Take 2 [place] (IMODIUM) 2 01-21- bowel [id number] capsules Health mg capsule 00:00: 00:00 elimination [...] days ostomy loperamide 2021- No Altered 4mg Q.03135798 Take 2 [place] (IMODIUM) 2 01-21-30 bowel [id number] capsules Health mg capsule 00:00: 00:00 elimination [...] days ostomy loperamide 2021- No Altered 4mg Q.29927513 Take 2 [place] (IMODIUM) 2 01-21 bowel [id number] capsules Health mg capsule 00:00: 00:00 elimination 3D by mouth 3 00 :00 due to times intestinal daily ostomy (before meals) for 30 days psyllium 2021- No Altered 1{packe Q.08003292 Take 1 [place] (METAMUCIL) 01-21 bowel t} [id number] Packet by [employer] 6 gram PwPk 00:00: 00:00 elimination 3D mouth 3 00 :00 due to times intestinal daily ostomy (before meals) for 90 days psyllium 2021- No Altered 1{packe Q.69558280 Take 1 [place] (METAMUCIL) 01-21 bowel t} [id number] Packet by [employer] 6 gram PwPk 00:00: 00:00 elimination 3D mouth 3 00 :00 due to times intestinal daily ostomy (before meals) for 90 days psyllium 2021- No Altered 1{packe Q.46104568 Take 1 [place] (METAMUCIL) 01-21 bowel t} [id number] Packet by [employer] 6 gram PwPk 00:00: 00:00 elimination 3D mouth 3 00 :00 due to times intestinal daily ostomy (before meals) for 90 days psyllium 2021- No Altered 1{packe Q.[id number] Take 1 [place] (METAMUCIL) 01-21 bowel t} [id number] Packet by [employer] 6 gram PwPk 00:00: 00:00 elimination 3D mouth 3 00 :00 due to times intestinal daily ostomy (before meals) for 90 days psyllium 2021- No Altered 1{packe Q.94198172 Take 1 [place] (METAMUCIL) 01-21 bowel t} [id number] Packet by [facility] 6 gram PwPk 00:00: 00:00 elimination 3D mouth 3 00 :00 due to times intestinal daily ostomy (before meals) for 90 days psyllium 2021- No Altered 1{packe Q.[id number] Take 1 [place] (METAMUCIL) 01-21 bowel t} [id number] Packet by [facility] 6 gram PwPk 00:00: 00:00 elimination 3D mouth 3 00 :00 due to times intestinal daily ostomy (before meals) for 90 days psyllium 2021- No Altered 1{packe Q.11340685 Take 1 [place] (METAMUCIL) 01-21 bowel t} [id number] Packet by [facility] 6 gram PwPk 00:00: 00:00 elimination 3D mouth 3 00 :00 due to times intestinal daily ostomy (before meals) for 90 days psyllium 2021- No Altered 1{packe Q.41484169 Take 1 [place] (METAMUCIL) 01-21 bowel t} [id number] Packet by [facility] 6 gram PwPk 00:00: 00:00 elimination 3D mouth 3 00 :00 due to times intestinal daily ostomy (before meals) for 90 days psyllium 2021- No Altered 1{packe Q.[id number] Take 1 [place] (METAMUCIL) 01-21 bowel t} [id number] Packet by [facility] 6 gram PwPk 00:00: 00:00 elimination 3D mouth 3 00 :00 due to times intestinal daily ostomy (before meals) for 90 days psyllium 2021- No Altered 1{packe Q.20943239 Take 1 [place] (METAMUCIL) 01-21 bowel t} [id number] Packet by [facility] 6 gram PwPk 00:00: 00:00 elimination 3D mouth 3 00 :00 due to times intestinal daily ostomy (before meals) for 90 days psyllium 2021- No Altered 1{packe Q.52133657 Take 1 [place] (METAMUCIL) 01-21 bowel t} [id number] Packet by [facility] 6 gram PwPk 00:00: 00:00 elimination 3D mouth 3 00 :00 due to times intestinal daily ostomy (before meals) for 90 days psyllium 2021- No Altered 1{packe Q.[id number] Take 1 [place] (METAMUCIL) 01-21 bowel t} [id number] Packet by [employer] 6 gram PwPk 00:00: 00:00 elimination 3D mouth 3 00 :00 due to times intestinal daily ostomy (before meals) for 90 days psyllium 2021- No Altered 1{packe Q.50440828 Take 1 Lyn[place] (METAMUCIL) 01-21 bowel t} [id number] Packet by [employer] 6 gram PwPk 00:00: 00:00 elimination 3D mouth 3 00 :00 due to times intestinal daily ostomy (before meals) for 90 days psyllium 2021- No Altered 1{packe Q.99545914 Take 1 [place] (METAMUCIL) 01-21 bowel t} [id number] Packet by [employer] 6 gram PwPk 00:00: 00:00 elimination 3D mouth 3 00 :00 due to times intestinal daily ostomy (before meals) for 90 days psyllium 2021- No Altered 1{packe Q.05430757 Take 1 [place] (METAMUCIL) 01-21 bowel t} [id number] Packet by [employer] 6 gram PwPk 00:00: 00:00 elimination 3D mouth 3 00 :00 due to times intestinal daily ostomy (before meals) for 90 days psyllium 2021- No Altered 1{packe Q.48826169 Take 1 [place] (METAMUCIL) 01-21 bowel t} [id number] Packet by [employer] 6 gram PwPk 00:00: 00:00 elimination 3D mouth 3 00 :00 due to times intestinal daily ostomy (before meals) for 90 days tamsulosin 2021- No Benign .4mg QD Take 1 Momin rris (FLOMAX) 01-12 prostatic capsule by [employer] 0.4 mg 00:00: 00:00 hyperplasia mouth capsule [...] Momin rris (FLOMAX) 01-12- prostatic capsule by [facility] 0.4 mg 00:00: 00:00 hyperplasia mouth capsule 00 :00 , daily. unspecified Start on whether 01/12/2022. lower urinary tract symptoms present tamsulosin 2021-2021- No Benign .4mg QD Take 1 Momin rris (FLOMAX) 01-12- prostatic capsule by [facility] 0.4 mg 00:00: 00:00 hyperplasia mouth capsule 00 :00 , daily. unspecified Start on whether 01/12/2022. lower urinary tract symptoms present tamsulosin 2021-2021- No Benign .4mg QD Take 1 Momin rris (FLOMAX) 01-12- prostatic capsule by [facility] 0.4 mg 00:00: 00:00 hyperplasia mouth [...] Momin rris (FLOMAX) 01-12-31 prostatic capsule by [facility] 0.4 mg 00:00: 00:00 hyperplasia mouth [...] Momin rris (FLOMAX) 01-12- prostatic capsule by [facility] 0.4 mg 00:00: 00:00 hyperplasia mouth capsule 00 :00 , daily. unspecified Start on whether 01/12/2022. lower urinary tract symptoms present tamsulosin 2021-2021- No Benign .4mg QD Take 1 Momin rris (FLOMAX) 01-12- prostatic capsule by [facility] 0.4 mg 00:00: 00:00 hyperplasia mouth capsule 00 :00 , daily. unspecified Start on whether 01/12/2022. lower urinary tract symptoms present tamsulosin 2021-2021- No Benign .4mg QD Take 1 Momin rris (FLOMAX) 01-12-31 prostatic capsule by [facility] 0.4 mg 00:00: 00:00 hyperplasia mouth [...] Momin rris (FLOMAX) 01-12-31 prostatic capsule by [facility] 0.4 mg 00:00: 00:00 hyperplasia mouth capsule 00 :00 , daily. unspecified Start on whether 01/12/2022. lower urinary tract symptoms present tamsulosin 0 2021- No Benign .4mg QD Take 1 Momin rris (FLOMAX) 01-12 05-31 prostatic capsule by [facility] 0.4 mg 00:00: [...] 04-14 05-21 abuse, in tablet by [facility] [employer]) 00:00: 00:00 remission mouth tablet 00 :00 daily. thiamine, 2021- No Alcohol 100mg QD Take 1 H arris B-1, 100 mg 04-14 05-21 abuse, in tablet by [facility] tablet 00:00: 00:00 remission mouth 00 :00 daily. multivitami 2021- No Alcohol 1{tbl} QD Take 1 [facility] (DAILY 04-14 05-21 abuse, in tablet by [employer]) 00:00: 00:00 remission mouth tablet 00 :00 daily. thiamine, 2021- No Alcohol 100mg QD Take 1 H arris B-1, 100 mg 04-14 05-21 abuse, in tablet by [facility] tablet 00:00: 00:00 remission mouth 00 :00 daily. multivitami 2021- No Alcohol 1{tbl} QD Take 1 [facility]ne n (DAILY 04-14-21 abuse, in tablet by [employer]) 00:00: 00:00 remission mouth tablet 00 :00 daily. thiamine, 2021- No Alcohol 100mg QD Take 1 H arris B-1, 100 mg 04-14 05-21 abuse, in tablet by [facility] tablet 00:00: 00:00 remission mouth 00 :00 daily. multivitami 2021- No Alcohol 1{tbl} QD Take 1 Lynne n (DAILY 04-14 05-21 abuse, in tablet by [employer]) 00:00: 00:00 remission mouth tablet 00 :00 [...] (DAILY 8 05-21 abuse, in tablet by [employer] VITES) 00:00: 00:00 remission mouth tablet 00 [...] n (DAILY 04-14-21 abuse, in tablet by [facility] [employer]) 00:00: 00:00 remission mouth tablet 00 :00 daily. thiamine, 2021- No Alcohol 100mg QD Take 1 H arris B-1, 100 mg 04-14-21 abuse, in tablet by [facility] tablet 00:00: 00:00 remission mouth 00 :00 daily. multivitami 2021- No Alcohol 1{tbl} QD Take 1 Lynne n (DAILY 04-14- abuse, in tablet by [employer]) 00:00: 00:00 remission mouth tablet 00 :00 daily. thiamine, 2021- No Alcohol 100mg QD Take 1 H arris B-1, 100 mg 04-14- abuse, in tablet by Health tablet 00:00: 00:00 remission mouth 00 :00 daily. multivitami 2021- No Alcohol 1{tbl} QD Take 1 Lynne n (DAILY 04-14- abuse, in tablet by [employer]) 00:00: 00:00 remission mouth tablet 00 :00 daily. thiamine, 2021- No Alcohol 100mg QD Take 1 H arris B-1, 100 mg 04-14- abuse, in tablet by [facility] tablet 00:00: 00:00 remission mouth 00 :00 daily. multivitami 2021- No Alcohol 1{tbl} QD Take 1 Lynne n (DAILY 04-14- abuse, in tablet by [employer]) 00:00: 00:00 remission mouth tablet 00 :00 daily. thiamine, 2021- No Alcohol 100mg QD Take 1 H arris B-1, 100 mg 04-14-21 abuse, in tablet by [facility] tablet 00:00: 00:00 remission mouth 00 :00 daily. multivitami 2021- No Alcohol 1{tbl} QD Take 1 Lynne n (DAILY 8 05-21 abuse, in tablet by [employer]) 00:00: 00:00 remission mouth tablet 00 :00 [...] Date Status Commen ts Source Name Name [facility] 2017-04-14 Completed [facility] 00:00:00 PPD 2017-04-14 [...] kg Systolic blood 2022-03-13 15:33:00 94 mm[Hg] [facility] pressure Diastolic blood 2022-03-13 15:33:00 62 mm[Hg] [facility] pressure Heart rate 2022-03-13 15:33:00 109 /min [facility] Body temperature 2022-03-13 15:33:00 36.67 Tasia [facility] Respiratory rate 2022-03-13 15:33:00 20 /min [facility] Body height 2022-03-13 15:33:00 185.4 cm [facility] Body weight 2022-03-13 15:33:00 66.679 kg [facility] BMI 2022-03-13 15:33:00 19.39 kg/m2 [facility] Oxygen saturation in 2022-03-13 15:33:00 100 /min [facility] Arterial blood by Pulse oximetry Systolic blood 2022-03-09 11:00:00 107 mm[Hg] [facility] Diastolic blood 2022-03-09 11:00:00 66 mm[Hg] [facility] Heart rate 2022-03-09 11:00:00 58 /min [facility] Body temperature 2022-03-09 11:00:00 36.22 Tasia [facility] Respiratory rate 2022-03-09 11:00:00 16 /min [place] [facility] Oxygen saturation in 2022-03-09 11:00:00 100 /min [facility] Arterial blood by Medical Ce nter Pulse oximetry Body height 2022-03-06 12:05:00 185.4 cm [facility] Body weight 2022-03-06 12:05:00 65.772 kg [facility] BMI 2022-03-06 12:05:00 19.13 kg/m2 [facility] Procedures Procedure Date / Time Performing Clinician Source Performed BASIC METABOLIC PANEL 2022-03-07 05:51:00 Romie Kuo [facility] HEPATIC FUNCTION PANEL 2022-03-07 05:51:00 Eduar KuoAcacia [facility] CBC W/PLT COUNT & AUTO 2022-03-07 05:51:00 [facility] CBC W/PLT COUNT & AUTO 2022-03-07 05:51:00 Shiela EduarAcacia [facility] US RENAL COMPLETE 2022-03-06 18:23:00 Eduar [facility] SARS-COV2/RT-PCR ([facility] & 2022-03-06 17:36:00 Shiela [facility] REF LABS) [facility] TSH/FREE T4 IF INDICATED 2022-03-06 14:18[facility]00 [facility] 2022-03-06 14:18[facility] 2022-03-06 13:48:12 [facility] 1 VIEW PORTABLE 2022-03-06 13:42:00 [facility] B-TYPE NATRIURETIC FACTOR 2022-03-06 13:23:00 Aryan Tello [facility] ([facility] CBC W/PLT COUNT & AUTO 2022-03-06 13:23:00 Aryan Tello [facility] COMPREHENSIVE METABOLIC 2022-03-06 13:23:00 Aryan Tello [facility] PANEL [facility] HIGH SENSITIVITY TROPONIN 2022-03-06 13:23:00 Aryan Tello [facility] MAGNESIUM 2022-03-06 13:23:[address] [facility] PHOSPHORUS 2022-03-06 13:23:[address] [facility] LACTIC ACID, VENOUS 2022-03-06 13:23:[address] [facility] CREATINE KINASE (CK) 2022-03-06 13:23:00 Aryan Tello [facility] CBC W/PLT COUNT & AUTO 2022-03-06 13:23:00 [facility] DIFFERENTIAL [facility] ECG 12-LEAD 2022-03-06 12:12:56 Unknown, [facility] ECG 12-LEAD 2022-03-06 12:12:56 Unknown, [facility] ECG 12-LEAD 2022-03-06 12:12:56 Unknown, [facility] EKG-SCANNED 2022-03-06 00:00:00 ProviderJacqui [facility] CBC (WITHOUT 2022-02-20 05:10:00 Rufino Lazaro DIFFERENTIAL) [...] URINALYSIS W/REFLEX TO 2022-02-19 00:34:00 Kobe Blake [facility] URINE CULTURE URINALYSIS 2022-02-19 00:34:00 Chadd Palacios URINE CULTURE COLLECTION 2022-02-19 00:34:00 Chadd Palacios [facility] KIT SARS-COV-2, FLU A/B, RSV 2022-02-18 19:00:00 Chadd Palacios [facility] CORONAVIRUS, COVID-19, 2022-02-18 19:00:00 Chadd Palacios [facility] OLENA XRAY CHEST 1 VIEW 2022-02-18 15:23:00 Roz Scales [facility] CONSULT CLINICAL CASE 2022-02-18 14:50:50 Yordy Roz [facility] MANAGEMENT (RN/SW) CBC/DIFF 2022-02-18 14:16:00 Albab, Susana [facility] BASIC METABOLIC PANEL 2022-02-18 14:16:00 [facility] 2022-02-18 14:16:00 Albab, Susana [facility] PHOSPHORUS 2022-02-18 14:16:00 Albab, Susana [facility] CREATINE KINASE (CK) 2022-02-18 14:16:00 [facility] CBC 2022-02-18 14:16:00 Albab, Susana [facility] BASIC METABOLIC PANEL 2022-02-11 03:34:[address] [facility] MAGNESIUM 2022-02-11 03:34:00 Cuchapin, Teresa [facility] PHOSPHORUS 2022-02-11 03:34:00 [facility] CBC (WITHOUT 2022-02-11 03:34:00 [place], Teresa [facility] DIFFERENTIAL) CBC/DIFF 2022-02-10 03:39:00 Meghan Islas [facility]alt [facility] BASIC METABOLIC PANEL 2022-02-10 03:39:00 [facility]-10 03:39:00 Antonieta Rosasashia [facility] THYROID STIMULATING 2022-02-10 03:39:[address] [facility] HORMONE (TSH) FREE T4 2022-02-10 03:39:00 [place] Teresa [facility] CBC/DIFF 2022-02-09 04:38:00 Meghan Islas Healt h BASIC METABOLIC PANEL 2022-02-09 04:38:[address] [facility] CBC 2022-02-09 04:38:00 [facility] 2022-02-08 11:37:00 Mari Meier ealt GLUCOSE POC 2022-02-08 08:07:00 Meghan Islas CBC (WITHOUT 2022-02-08 04:00:00 Mari Meier [facility] DIFFERENTIAL) COMPREHENSIVE METABOLIC 2022-02-08 04:00:00 Mari Meier Health PANEL PHOSPHORUS 2022-02-08 04:00:00 [facility] MAGNESIUM 2022-02-08 04:00:00 Mari Meier [facility] PT/INR 2022-02-08 04:00:00 Mari Meier [facility] URINALYSIS W/REFLEX TO 2022-02-07 18:06:00 Areli Arciniega [facility] URINE CULTURE URINALYSIS 2022-02-07 18:06:00 Areli Arciniega alth URINE CULTURE COLLECTION 2022-02-07 18:06:[address] [facility] KIT ELECTROLYTES, URINE 2022-02-07 18:06:[address] [facility] OSMOLALITY, URINE 2022-02-07 18:06:00 Jyoti Carrillo [facility] SARS-COV-2, FLU A/B, RSV 2022-02-07 18:05:00 Jyoti Carrillo [facility] CORONAVIRUS, COVID-19, 2022-02-07 18:05:00 Jyoti Carrillo Located within [facility] OLENA NUTRITION CONSULT 2022-02-07 17:43:36 Mari Meier [facility] ASSESSMENT BASIC METABOLIC PANEL 2022-02-07 17:18:00 Jyoti Carrillo [facility] LACTIC ACID 2022-02-07 14:04:00 Areli Arciniega alth CBC/DIFF 2022-02-07 14:03:00 Areli Arciniega alth BASIC METABOLIC PANEL 2022-02-07 14:03:00 Areli Arciniega Located within [facility] LIVER PROFILE 2022-02-07 14:03:00 Areli Arciniega [facility]th LIPASE 2022-02-07 14:03:00 Areli Arciniega alth MAGNESIUM 2022-02-07 14:03:00 Areli Arciniega alth PHOSPHORUS 2022-02-07 14:03:00 Areli Arciniega alth TROPONIN I 2022-02-07 14:03:00 Areli Arciniega alth CBC 2022-02-07 14:03:00 Areli Arciniega alth 12 LEAD EKG 2022-01-21 15:46:10 Ori Goldberg [facility] h CBC/DIFF 2022-01-21 04:11:[address] [facility] MAGNESIUM 2022-01-21 04:11:[address] [facility] PHOSPHORUS 2022-01-21 04:11:[address] [facility] BASIC METABOLIC PANEL 2022-01-21 04:11:00 Ori Goldberg [facility] CBC 2022-01-21 04:11:[address] [facility] CBC/DIFF 2022-01-20 04:37:[address] [facility] MAGNESIUM 2022-01-20 04:37:[address] [facility] PHOSPHORUS 2022-01-20 04:37:[address] [facility] BASIC METABOLIC PANEL 2022-01-20 04:37:00 [facility] CBC 2022-01-20 04:37:[address] [facility] MAGNESIUM 2022-01-19 18:09:[address] [facility] PHOSPHORUS 2022-01-19 18:09:[address] [facility] BASIC METABOLIC PANEL 2022-01-19 18:09:00 Lindsey, [facility] CORTISOL, TOTAL 2022-01-19 18:09:00 Karin Bassett [facility] URINALYSIS W/REFLEX TO 2022-01-19 17:22:00 Lindsey[facility] URINE CULTURE URINALYSIS 2022-01-19 17:22:[address] [facility] URINE CULTURE COLLECTION 2022-01-19 17:22:00 Steve [facility] KIT COMPUTED TOMOGRAPHY 2022-01-19 13:29:[address] [facility] ABDOMEN AND PELVIS WITHOUT CONTRAST CBC/DIFF 2022-01-19 04:44:[address] [facility] CBC 2022-01-19 04:44:[address] [facility] DIFFERENTIAL, MANUAL (NO 2022-01-19 04:44:00 Steve Lucas [facility] MORPHOLOGY)-[place] BASIC METABOLIC PANEL 2022-01-18 17:15:00 [facility] CBC/DIFF 2022-01-18 04:46:[address] [facility] MAGNESIUM 2022-01-18 04:46:[address] [facility] PHOSPHORUS 2022-01-18 04:46:[address] [facility] BASIC METABOLIC PANEL 2022-01-18 04:46:[address] [facility] CBC 2022-01-18 04:46:[address] [facility] HIV AG/AB COMBO ROUTINE 2022-01-18 04:46:00 Karin Bassett Located within [facility] SCREENING ENTERIC PATHOGENS NUCLEIC 2022-01-18 03:25:00 Karin Bassett [facility] ACID TEST BASIC METABOLIC PANEL 2022-01-18 00:29:[address] [facility] BASIC METABOLIC PANEL 2022-01-17 17:07:00 [facility] BASIC METABOLIC PANEL 2022-01-17 13:15:00 [facility] CALPROTECTIN FECAL 2022-01-17 12:38:00 Steve Lucas [facility] FECAL LEUKOCYTES 2022-01-17 12:38:00 Steve Lucas [facility] T-TRANSGLUTAMINASE IGA 2022-01-17 12:22:00 Steve Lucas [facility] BASIC METABOLIC PANEL 2022-01-17 08:51:00 LindseySteve P [facility] BASIC METABOLIC PANEL 2022-01-17 04:47:00 Steve Lucas [employer] [facility] CBC/DIFF 2022-01-17 04:47:00 Steve Lucas [facility]al [facility] MAGNESIUM 2022-01-17 04:47:00 Steve Lucas [facility] PHOSPHORUS 2022-01-17 04:47:[address] [facility] CBC 2022-01-17 04:47:[address] [facility] BASIC METABOLIC PANEL 2022-01-17 00:08:00 LindseySteve Esther [employer] [facility] 12 LEAD EKG 2022-01-16 21:23:[address] [facility] BASIC METABOLIC PANEL 2022-01-16 21:08:00 Lindsey, Steve Santana [employer] XRAY CHEST 2 VIEWS 2022-01-16 19:56:00 Steve Lucas ealth IP CONSULT TO PHYSICAL 2022-01-16 19:17:17 Steve Lucas [facility] THERAPY CONSULT CLINICAL CASE 2022-01-16 19:17:17 Lindsey, Steve Santana [employer] MANAGEMENT (RN/SW) SEQUENTIAL COMPRESSION 2022-01-16 19:17:17 [facility] PUMP SEQUENTIAL COMPRESSION 2022-01-16 19:17:17 Noe Lucash [facility] PUMP SODIUM, URINE, RANDOM 2022-01-16 16:00:00 NievesKevin barreto [facility] CREATININE, URINE, RANDOM 2022-01-16 16:00:[address] [facility] OSMOLALITY, URINE 2022-01-16 16:00:[address] [facility] SARS-COV-2, FLU A/B, RSV 2022-01-16 15:20:[address] [facility] CORONAVIRUS, COVID-19, 2022-01-16 15:20:00 Kevin Nieves [facility] OLENA FOLIC ACID 2022-01-16 14:13:00 Kevin Nieves [facility] CREATININE POC 2022-01-16 13:55:00 Raymon [facility] BMP POC 2022-01-16 13:46:00 Veronica Raymon [facility] CBC/DIFF 2022-01-16 12:12:00 Veronica Raymon [facility] CBC 2022-01-16 12:12:00 Veronica Raymon [facility] BASIC METABOLIC PANEL 2022-01-16 12:11:00 Sadiq Vargas [facility] MAGNESIUM 2022-01-16 12:11:00 Sadiq Vargas Hea lth VITAMIN B12 2022-01-16 12:11:00 Kevin Nieves [facility] OSMOLALITY,SERUM 2022-01-16 12:11:[address] [facility] INFUSION PUMP 2022-01-11 09:21:05 Helene Ring [facility] GLUCOSE POC 2022-01-11 07:54:00 Helene Ring [facility] BASIC METABOLIC PANEL 2022-01-11 04:07:[address] [facility] MAGNESIUM 2022-01-11 04:07:00 [facility] 2022-01-11 04:07:00 [facility] CBC/DIFF 2022-01-11 04:06:00 Merissa Richards [facility] h IRON PROFILE 2022-01-11 04:06:00 [facility] FOLIC [facility]ID 2022-01-11 04:06:00 [facility] CBC 2022-01-11 04:06:00 Merissa Richards [facility] h GLUCOSE POC 2022-01-10 18:16:00 Helene Ring [facility] URINALYSIS 2022-01-10 16:10:00 Merissa Richards [facility] h URINALYSIS 2022-01-10 16:10:00 Merissa Richards [facility] h SARS-COV-2, FLU A/B, RSV 2022-01-10 15:54:00 Merissa Richards Located within [facility] CORONAVIRUS, COVID-19, 2022-01-10 15:54:00 Antoine Hester [facility] OLENA BASIC METABOLIC PANEL 2022-01-10 15:54:00 Merissa Richards [facility] VITAMIN B12 2022-01-10 15:54:00 Merissa Richards [facility] VBG POC 2022-01-10 11:14:00 Best, Provider [facility] CBC/DIFF 2022-01-10 11:13:00 Antoine Hester [facility] BASIC METABOLIC PANEL 2022-01-10 11:13:[address] [facility] LACTIC ACID 2022-01-10 11:13:00 Antoine Hester [facility] h CBC 2022-01-10 11:13:00 Antoine Hester [facility] h LIVER PROFILE 2022-01-10 11:13:00 Merissa Richards [facility] CK, TOTAL 2022-01-10 11:13:00 Merissa Richards [facility] FERRITIN 2022-01-10 11:13:00 Merissa Richards [facility] CREATINE KINASE MB (CKMB) 2022-01-10 11:13:00 Merissa Richards [facility] XRAY CHEST 2 VIEWS 2022-01-08 21:50:[address] [facility] CBC/DIFF 2022-01-08 21:27:00 Tanja Sebastian [facility] BASIC METABOLIC PANEL 2022-01-08 21:27:00 Tanja Sebastian [facility] LIVER PROFILE 2022-01-08 21:27:00 Tanja Sebastian [facility] CK, TOTAL 2022-01-08 21:27:00 Tanja Sebastian [facility] TROPONIN I 2022-01-08 21:27:00 Tanja Sebastian [facility] lt CBC 2022-01-08 21:27:00 Tanja Sebastian [facility] CREATINE KINASE MB (CKMB) 2022-01-08 21:27:[address] [facility] 12 LEAD EKG 2022-01-08 20:59:56 Tanja Sebastian [facility] lt [id number] 2020-01-09 00:00:00 [email or web address] [facility] Plan of Care Planned Activity Planned Date Details Comments Source Future Scheduled 2029-03-23 Screening for malignant [facility] Test 00:00:00 neoplasm of colon [facility] (procedure) [code = 442838074] Future Scheduled 2029-03-23 Screening for malignant [facility] Test 00:00:00 neoplasm of colon [facility] (procedure) [code = 903100468] Future Scheduled 2029-03-23 Screening for malignant [facility] Test 00:00:00 neoplasm of colon [facility] (procedure) [code = 492501715] Future Scheduled 2029-03-23 Screening for malignant [facility] Test 00:00:00 neoplasm of colon [facility] (procedure) [code = 087684027] Future Scheduled 2029-03-23 Screening for malignant [facility] Test 00:00:00 neoplasm of colon [facility] (procedure) [code = 004598555] Future Scheduled 2029-03-23 Screening for malignant [facility] Test 00:00:00 neoplasm of colon [facility] (procedure) [code = 808693177] Future Scheduled 2029-03-23 Screening for malignant [facility] Test 00:00:00 neoplasm of colon [facility] (procedure) [code = 765218864] Future Scheduled 2029-03-23 Screening for malignant [facility] Test 00:00:00 neoplasm of colon [facility] (procedure) [code = 162528912] Future Scheduled 2029-03-23 Screening for malignant [facility] Test 00:00:00 neoplasm of colon [facility] (procedure) [code = 350036339] Future Scheduled 2029-03-23 Screening for malignant [facility] Test 00:00:00 neoplasm of colon [facility] (procedure) [code = 987363114] Future Scheduled 2029-03-23 Screening for malignant [facility] Test 00:00:00 neoplasm of colon [facility] (procedure) [code = 869958487] Future Scheduled 2029-03-23 Screening for malignant [facility] Test 00:00:00 neoplasm of colon [facility] (procedure) [code = 941514608] Future Scheduled 2029-03-23 Screening for malignant [facility] Test 00:00:00 neoplasm of colon [facility] (procedure) [code = 297198209] Future Scheduled 2029-03-23 Screening for malignant [facility] Test 00:00:00 neoplasm of colon [facility] (procedure) [code = 454926346] Future Scheduled 2029-03-23 Screening for malignant [facility] Test 00:00:00 neoplasm of colon [facility] (procedure) [code = 864905545] Future Scheduled 2029-03-23 Screening for malignant [facility] Test 00:00:00 neoplasm of colon [facility] (procedure) [code = 677274489] Future Scheduled 2029-03-23 Screening for malignant [facility] Test 00:00:00 neoplasm of colon Medical [facility] (procedure) [code = 925736297] Future Scheduled 2029-03-23 Screening for malignant [facility] Test 00:00:00 neoplasm of colon [facility] (procedure) [code = 935239645] Future Scheduled 2029-03-23 Screening for malignant [facility] Test 00:00:00 neoplasm of colon [facility] (procedure) [code = 785418033] Future Scheduled 2029-03-23 Screening for malignant [facility] Test 00:00:00 neoplasm of colon Medical Ce [facility] (procedure) [code = 724619628] Future Scheduled 2029-03-23 Screening for malignant [facility] Test 00:00:00 neoplasm of colon Medical Ce [facility] (procedure) [code = 450839051] Future Scheduled 2029-03-23 Screening for malignant [facility] Test 00:00:00 neoplasm of colon Medical Ce [facility] (procedure) [code = 902629959] Future Scheduled 2029-03-23 Screening for malignant [facility] Test 00:00:00 neoplasm of colon Medical Ce [facility] (procedure) [code = 852020888] Future Scheduled 2029-03-23 Screening for malignant [facility] 00:00:00 neoplasm of colon [facility] (procedure) [code = 502807222] Future Scheduled 2029-03-23 Screening for malignant [facility] Test 00:00:00 neoplasm of colon Medical Ce [facility] (procedure) [code = 582536232] Future Scheduled 2029-03-23 Screening for malignant [facility] Test 00:00:00 neoplasm of colon Medical Ce [facility] (procedure) [code = 949921244] Future Scheduled 2029-03-23 Screening for malignant [facility] Test 00:00:00 neoplasm of colon Medical [facility] (procedure) [code = 018226266] Future Scheduled 2029-03-23 Screening for malignant [facility] Test 00:00:00 neoplasm of colon Medical Ce [facility]ter (procedure) [code = 275329500] Future Scheduled 2029-03-23 Screening for malignant [facility] Test 00:00:00 neoplasm of colon Medical Ce [facility] (procedure) [code = 127340585] Future Scheduled 2029-03-23 Screening for malignant [facility] Test 00:00:00 neoplasm of colon Medical Ce [facility]ter (procedure) [code = 435461295] Future Scheduled 2029-03-23 Screening for malignant [facility] Test 00:00:00 neoplasm of colon Medical Ce [facility]ter (procedure) [code = 705709692] Future Scheduled 2029-03-23 Screening for malignant [facility] Test 00:00:00 neoplasm of colon Medical Ce [facility]ter (procedure) [code = 492350068] Future Scheduled 2029-03-23 Screening for malignant [facility] Test 00:00:00 neoplasm of colon Medical Ce [facility]ter (procedure) [code = 527755833] Future Scheduled 2029-03-23 Screening for malignant [facility] Test 00:00:00 neoplasm of colon Medical Ce [facility]ter (procedure) [code = 413724180] Future Scheduled 2029-03-23 Screening for malignant [facility] Test 00:00:00 neoplasm of colon Medical Ce [facility]ter (procedure) [code = 919485888] Future Scheduled 2022-08-[address] [facility] Test 00:00:00 (12+) [code = Medical Center DEPRESSION SCREENING (12+)] Future Scheduled 2022-08-24 DEPRESSION SCREENING [facility] 00:00:00 neoplasm of colon (procedure) [code = 551492238] Future Scheduled 2020-02-14 Screening for malignant [facility] 00:00:00 neoplasm of colon (procedure) [code = 959580546] Future Scheduled 2020-02-14 Screening for malignant [facility] 00:00:00 neoplasm of colon (procedure) [code = 074621176] Future Scheduled 2020-02-14 Screening for malignant [facility] 00:00:00 neoplasm of colon (procedure) [code = 962939032] Future Scheduled 2020-02-14 Screening for malignant [facility] 00:00:00 neoplasm of colon (procedure) [code = 612024116] Future Scheduled 2020-02-14 Screening for malignant [facility] 00:00:00 neoplasm of colon (procedure) [code = 490680127] Future Scheduled 2020-02-14 Screening for malignant [facility] 00:00:00 neoplasm of colon (procedure) [code = 293805333] Future Scheduled 2020-02-14 Screening for malignant [facility] 00:00:00 neoplasm of colon (procedure) [code = 909278695] Future Scheduled 2020-02-14 Screening for malignant [facility] 00:00:00 neoplasm of colon (procedure) [code = 157323325] Future Scheduled 2020-02-14 Screening for malignant [facility] 00:00:00 neoplasm of colon (procedure) [code = 356889559] Future Scheduled 2020-02-14 Screening for malignant [facility] 00:00:00 neoplasm of colon (procedure) [code = 167184100] Future Scheduled 2020-02-14 Screening for malignant [facility] 00:00:00 neoplasm of colon (procedure) [code = 293913725] Future Scheduled 2020-02-14 Screening for malignant [facility] 00:00:00 neoplasm of colon (procedure) [code = 546468898] Future Scheduled 2020-02-14 Screening for malignant [facility] 00:00:00 neoplasm of colon (procedure) [code = 488980059] Future Scheduled 2020-02-14 [facility] 00:[facility]:00 neoplasm of colon (procedure) [code = 136932213] Future Scheduled 2020-02-14 SHINGLES VACCINES ([address] [facility] 00:00:00 2) [code = SHINEl [facility] VACCINES (1 of 2)] Future Scheduled 2020-02-14 Screening for malignant [facility] 00:00:00 neoplasm of colon (procedure) [code = 009306646] Future Scheduled 2020-02-14 SHINGLES VACCINES (1 [facility] 2) [code = [facility] VACCINES (1 of 2)] Future Scheduled 2005 Lipid panel (procedure) [facility] 00:00:00 [code = 05209463] Medical Ce nter Future Scheduled 2005 Lipid panel (procedure) [facility] 00:00:00 [code = 75297381] Medical Ce nter Future Scheduled 2005 Lipid panel (procedure) [facility] 00:00:00 [code = 85859591] Medical Ce nter Future Scheduled 2005 Lipid panel (procedure) [facility] 00:00:00 [code = 95732228] Medical Ce nter Future Scheduled 2005 Lipid panel (procedure) [facility] 00:00:00 [code = 06346668] Medical Ce nter Future Scheduled 2005 Lipid panel (procedure) [facility] 00:00:00 [code = 22138635] Medical Ce nter Future Scheduled 2005 Lipid panel (procedure) [facility] 00:00:00 [code = 12796783] Medical Ce nter Future Scheduled 2005 Lipid panel (procedure) [facility] 00:00:00 [code = 09237815] Medical Ce nter Future Scheduled 2005 Lipid panel (procedure) [facility] 00:00:00 [code = 57618634] Medical Ce nter Future Scheduled 2005 Lipid panel (procedure) [facility] 00:00:00 [code = 32219413] Medical Ce nter Future Scheduled 2005 Lipid panel (procedure) [facility] 00:00:00 [code = 69285525] Medical Ce nter Future Scheduled 2005 Lipid panel (procedure) [facility] 00:00:00 [code = 37199059] Medical Ce nter Future Scheduled 2005 Lipid panel (procedure) [facility] 00:00:00 [code = 58195178] Medical Ce nter Future Scheduled 2005 Lipid panel (procedure) [facility] 00:00:00 [code = 97380209] Medical Ce nter Future Scheduled 2005 Lipid panel (procedure) [facility] 00:00:00 [code = 40036319] Medical Ce nter Future Scheduled 2005 Lipid panel (procedure) [facility] 00:00:00 [code = 15346839] Medical Ce nter Future Scheduled 2005 Lipid panel (procedure) [facility] 00:00:00 [code = 66689845] Medical Ce nter Future Scheduled 2005 Lipid panel (procedure) [facility] 00:00:00 [code = 44800973] Medical Ce nter Future Scheduled 1989 DTAP/TDAP/TD [...] colon Medical Ce nter (procedure) [code = 378877821] Future Scheduled 1970 Screening for malignant [facility] 00:00:00 neoplasm of colon Medical Ce nter (procedure) [code = 561700446] Future Scheduled 1970 Sigmoidoscopy [facility]] [facility] Cent[facility] Future Scheduled 1970 CT Colonography (combo) [facility] 00:00:00 [code = CT [facility] Future Scheduled 1970 Screening for malignant [facility] 00:00:00 neoplasm of colon Medical Ce nter (procedure) [code = 422606185] Future Scheduled 1970 Screening for malignant [facility] 00:00:00 neoplasm of colon Medical Ce nter (procedure) [code = 418365531] Future Scheduled 1970 Sigmoidoscopy [facility]code [facility]oscopy] Medical Cent[facility] r Future Scheduled 1970 CT Colonography (combo) [facility] 00:00:00 [code = CT [facility] ([facility])] Future Scheduled 1970 Screening for malignant [facility] 00:00:00 neoplasm of colon Medical Ce nter (procedure) [code = 155140445] Future Scheduled 1970 Screening for malignant [facility] 00:00:00 neoplasm of colon Medical Ce nter (procedure) [code = 226385141] Future Scheduled 1970 Sigmoidoscopy [facility]code [facility]oscopy] Medical Cente r Future Scheduled 1970 CT Colonography (combo) [facility] 00:00:00 [code = CT [facility] ([facility])] Future Scheduled 1970 Screening for malignant [facility] 00:00:00 neoplasm of colon Medical Ce nter (procedure) [code = 079779696] Future Scheduled 1970 Screening for malignant [facility] 00:00:00 neoplasm of colon Medical Ce nter (procedure) [code = 609388912] Future Scheduled 1970 Sigmoidoscopy [code = CH [...] colon Medical Ce nter (procedure) [code = 524511466] Future Scheduled 1970 Screening for malignant [facility] 00:00:00 neoplasm of colon Medical Ce nter (procedure) [code = 703206144] Future Scheduled 1970 S[facility]oidoscopy [facility]code [facility]oscopy] Medical Cente r Future Scheduled 1970 Screening for malignant [facility] 00:00:00 neoplasm of colon Medical Ce nter (procedure) [code = 179430157] Future Scheduled 1970 Screening for malignant [facility] 00:00:00 neoplasm of colon Medical Ce nter (procedure) [code = 779323878] Future Scheduled 1970 S[facility]oidoscopy [facility]oscopy] Medical Cente r Future Scheduled 1970 CT Colonography (combo) [facility] 00:00:00 [code = CT Colonography [facility] (combo)] Future Scheduled 1970 Screening for malignant [facility] 00:00:00 neoplasm of colon Medical Ce nter (procedure) [code = 030135016] Future Scheduled 1970 Screening for malignant [facility] 00:00:00 neoplasm of colon Medical Ce nter (procedure) [code = 343620477] Future Scheduled 1970 S[facility]oidoscopy [facility]code [facility]oscopy] Medical Cente r Future Scheduled 1970 CT Colonography (combo) [facility] 00:00:00 [code = CT [facility] Future Scheduled 1970 Screening for malignant [facility] 00:00:00 neoplasm of colon Medical Ce nter (procedure) [code = 961379771] Future Scheduled 1970 Screening for malignant [facility] 00:00:00 neoplasm of colon Medical Ce nter (procedure) [code = 600769866] Future Scheduled 1970 Sigmoidoscopy [facility]code [facility]oscopy] Medical Cente r Future Scheduled 1970 CT Colonography (combo) [facility] 00:00:00 [code = CT [facility] ([facility])] Future Scheduled 1970 Screening for malignant [facility] 00:00:00 neoplasm of colon Medical Ce nter (procedure) [code = 405482090] Future Scheduled 1970 Screening for malignant [facility] 00:00:00 neoplasm of colon Medical Ce nter (procedure) [code = 284300804] Future Scheduled 1970 Sigmoidoscopy [facility]oscopy] Medical Cente r Future Scheduled 1970 CT Colonography (combo) [facility] 00:00:00 [code = CT [facility] ([facility])] Future Scheduled 1970 Screening for malignant [facility] 00:00:00 neoplasm of colon Medical Ce nter (procedure) [code = 543329688] Future Scheduled 1970 Screening for malignant [facility] 00:00:00 neoplasm of colon Medical Ce nter (procedure) [code = 508762634] Future Scheduled 1970 Sigmoidoscopy [facility]code [facility]oscopy] Medical Cente r Future Scheduled 1970 CT Colonography (combo) [facility] 00:00:00 [code = CT [facility] ([facility])] Future Scheduled 1970 Screening for malignant [facility] 00:00:00 neoplasm of colon Medical Ce nter (procedure) [code = 012299963] Future Scheduled 1970 Screening for malignant [facility] 00:00:00 neoplasm of colon Medical Ce nter (procedure) [code = 176638494] Future Scheduled 1970 Sigmoidoscopy [facility]code [facility]oscopy] Medical Cente r Future Scheduled 1970 CT Colonography (combo) [facility] 00:00:00 [code = CT [facility] ([facility])] Future Scheduled 1970 Screening for malignant [facility] 00:00:00 neoplasm of colon Medical Ce nter (procedure) [code = 930159727] Future Scheduled 1970 Screening for malignant [facility] 00:00:00 neoplasm of colon Medical Ce nter (procedure) [code = 860079162] Future Scheduled 1970 Sigmoidoscopy [facility]oscopy] Medical Cente r Future Scheduled 1970 CT Colonography (combo) [facility] 00:00:00 [code = CT Colonography [facility] (combo)] Future Scheduled 1970 Screening for malignant [facility] 00:00:00 neoplasm of colon Medical Ce nter (procedure) [code = 271805366] Future Scheduled 1970 Screening for malignant [facility] 00:00:00 neoplasm of colon Medical Ce nter (procedure) [code = 289615072] Future Scheduled 1970 Sigmoidoscopy [facility]code [facility] S[facility]oidoscopy] Medical Angele r Future Scheduled 1970 CT Colonography (combo) [facility] 00:00:00 [code = CT Colonography [facility] (combo)] Future Scheduled 1970 Screening for malignant [facility] 00:00:00 neoplasm of colon Medical Ce nter (procedure) [code = 550662841] Future Scheduled 1970 Screening for malignant [facility] 00:00:00 neoplasm of colon Medical Ce nter (procedure) [code = 160602110] Future Scheduled 1970 Sigmoidoscopy [facility]code [facility] S[facility]oidoscopy] Medical Angele r Future Scheduled 1970 CT Colonography (combo) [facility] 00:00:00 [code = CT Colonography [facility] (combo)] Future Scheduled 1970 Screening for malignant [facility] 00:00:00 neoplasm of colon Medical Ce nter (procedure) [code = 342645891] Future Scheduled 1970 Screening for malignant [facility] 00:00:00 neoplasm of colon Medical Ce nter (procedure) [code = 347121251] Future Scheduled 1970 Sigmoidoscopy [facility]code [facility]oscopy] Medical Cente r Future Scheduled 1970 CT Colonography (combo) [facility] 00:00:00 [code = CT Colonography [facility] (combo)] Future Scheduled 1970 Screening for malignant [facility] 00:00:00 neoplasm of colon Medical Ce nter (procedure) [code = 710819757] Future Scheduled 1970 Screening for malignant [facility] 00:00:00 neoplasm of colon Medical Ce nter (procedure) [code = 639922028] Future Scheduled 1970 Sigmoidoscopy [code = [facility] 00:[facility] S[facility]oidoscopy] Medical Cente r Future Scheduled 1970 CT Colonography (combo) [facility] 00:00:00 [code = CT Colonography [facility] (combo)] Future Scheduled 1970 Screening for malignant [facility] 00:00:00 neoplasm of colon Medical Ce nter (procedure) [code = 122168387] Future Scheduled 1970 Screening for malignant [facility] 00:00:00 neoplasm of colon Medical Ce nter (procedure) [code = 875186705] Future Scheduled 1970 Sigmoidoscopy [facility]code [facility] 00[facility] S[facility]oscopy] Medical Cente r Encounters Start End Encounter Admission Attending Care Care Encounter Source Date/Time Date/Time Type Type Clinicians Facility Department ID 2020-02-23 Inpatient HCAPM LENNY [id number] [facility] 18:42:00 89 [facility] 2020-02-17 Inpatient EM Avtar, HCAPM MAS [id number] [facility] 00:22:00 Oladipo 75 [facility] 2020-01-05 Inpatient UR Perea, HCAPM MEDI.01 [id number] [facility] 20:23:00 Mark 40 [facility] 2019-12-13 Inpatient HCAMN JULIA [id number] [facility] 17:52:00 47 [facility] 2022-03-29 2022-03-29 Emergency EM White, HCACL AERS [id number] [facility] 14:26:00 16:45:00 Steve 28 [facility] 2022-03-29 2022-03-29 Emergency EM White, HCACL HCACL [id number] [facility] 14:26:00 16:45:00 Steve [id number] [facility] 2022-03-25 2022-03-26 Inpatient E RICHARD [facility] MED [id number] BL 13:38:00 10:16:00 , YESSI 2022-03-15 2022-03-18 Emergency E RADHA [facility] [id number] [facility] 13:36:00 18:59:00 NELSON 2022-03-13 2022-03-13 Emergency [facility] [id number] [facility] 15:33:00 20:25:00 Health 2022-03-13 2022-03-13 Emergency [facility] [id number] [facility] 15:33:00 20:25:00 [facility] 2022-03-13 2022-03-13 Outpatient RONALD, [facility] [id number] [place] 00:00:00 00:00:00 [facility] 2022-03-06 2022-03-09 Inpatient ER [facility] Emergency [id number] [facility] 12:16:00 12:55:00 2022-03-06 2022-03-09 [facility] [id number] 12:16:00 12:55:00 Encounter Dee Dee Montalvo Fang-Ying M edical Heinen, Allison P. [facility] 2022-03-06 2022-03-09 [facility] [id number] 12:16:00 12:55:00 Encounter Dee Dee Montalvo Fang-Ying M edical Heinen[facility] 2022-03-06 2022-03-06 Outpatient [facility] [id number] [facility] 00:00:00 23:59:00 Jennifer funk of Medicin e 2022-03-06 2022-03-06 Orders [facility] [id number] 00:00:00 00:00:00 Only [facility] 2022-03-06 2022-03-[address] [facility] [id number] [facility] 00:[facility]00 00:00:00 [facility] 2022-03-06 2022-03-06 Orders [facility] [id number] 00:00:00 00:00:00 Only [facility] 2022-03-06 2022-03-[address] [facility] [id number] [facility] 00:[facility]00 00:00:00 [facility] 2022-02-18 2022-02-20 [facility] [id number] [place] 13:58:00 11:55:00 [facility] 2022-02-18 2022-02-20 [facility] [id number] [place] 13:58:00 11:55:00 [facility] Rufino Lazaro Roberto 2022-02-18 2022-02-18 [facility] [id number] [place] 15:19:05 15:23:18 [facility] 2022-02-18 2022-02-18 [facility] [id number] [place] 13:58:00 13:58:00 [facility] 2022-02-18 2022-02-18 Outpatient [facility] [id number] [place] 00:00:00 00:00:00 , OSCAR Daniels 2022-02-07 2022-02-11 [facility] [id number] [place] 13:40:00 13:22:00 [facility] 2022-02-07 2022-02-11 [facility] [id number] [place] 13:40:00 13:22:00 Encounter [facility] 2022-02-07 2022-02-07 Outpatient 1 MEGHAN ISLAS [facility] [id number] [place] 13:40:00 13:40:00 [facility] 2022-01-30 2022-01-30 Emergency SEAN Pacheco [facility] [id number] [facility] 17:02:00 18:29:00 Dwain 53 [facility] 2022-01-30 2022-01-30 Emergency SEAN Pacheco, [facility] [id number] [facility] 17:02:00 18:29:00 Dwain Ortiz [facility] 2022-01-22 2022-01-22 Emergency [facility] [id number] [place] 17:24:00 20:39:00 [facility] 2022-01-22 2022-01-22 Emergency [facility] [id number] [place] 17:24:00 20:39:00 [facility] 2022-01-16 2022-01-21 Emergency Raymon Martin [facility] [id number] [place] 11:04:00 18:08:00 Karin Bassett [facility] Darrion Loera, [facility] P 2022-01-16 2022-01-21 Emergency Raymon Martin [facility] [id number] [place] 11:04:00 18:08:00 Karin Bassett Julian C Agrawal, Steve P 2022-01-19 2022-01-19 Outpatient [facility] [id number] [place] 12:34:08 13:29:31 [facility] 2022-01-16 2022-01-16 Outpatient [facility] [id number] [place] 19:42:28 20:01:28 [facility] 2022-01-16 2022-01-16 Outpatient 1 DANYELLE [facility] [id number] [place] 11:04:00 11:04:00 KARIN Daniels 2022-01-10 2022-01-11 Emergency Bert Reed [facility] [id number] [place] 10:58:00 11:20:00 Helene Ring [facility] Merissa Richards 2022-01-10 2022-01-11 Emergency Bert Reed [facility] [id number] Maged 10:58:00 11:20:00 Helene Ring [facility] Merissa Richards 2022-01-10 2022-01-10 Out[facility] [id number] [place] 10:58:00 10:58:00 [facility] 2022-01-08 2022-01-09 Emergency [facility] [id number] [place] 17:57:00 02:50:00 [facility] 2022-01-08 2022-01-09 Emergency [facility] [id number] [place] 17:57:00 02:50:00 [facility] 2022-01-08 2022-01-08 Emergency [facility] [id number] [place] 21:40:34 21:50:19 [facility] 2021-09-23 2021-09-23 Emergency EM Aimta Raffaele HCAC[facility] AERS [id number] [facility] 19:35:00 21:10:00 74 [facility] 2021-09-13 2021-09-13 Emergency EM Amita Raffaele HCACL AERS [id number] [facility] 14:57:00 16:37:00 06 [facility] 2021-07-27 2021-07-27 Emergency EM Kateryna, HCAMN JULIA [id number] [facility] 10:15:00 12:36:00 Tarek 17 [facility] 2021-07-22 2021-07-22 Emergency EM Marcelina, HCACL AERS [id number] [facility] 04:25:00 08:20:00 Tarrell 74 [facility] 2021-06-27 2021-06-27 Emergency EM White, HCACL AERS [id number] [facility] 15:31:00 17:37:00 Steve 17 [facility] 2021-04-28 2021-05-01 Inpatient EM Aisha, HCACL [facility] [id number] [facility] 21:05:00 14:18:00 Christopher 03 [facility] 2020-02-24 2020-02-24 Outpatient MASON PereaCL LABO [id number] [facility] 07:51:00 07:51:00 Mark 96 [facility] 2020-02-18 2020-02-18 Outpatient MASON NovaCL LABO [id number] [facility] 00:26:00 00:26:00 Oladipo 05 [facility] 2020-01-05 2020-01-05 Outpatient MASON PereaCL [facility] [id number] [facility] 23:52:00 23:52:00 Mark 24 [facility] 2017-11-02 2017-11-02 Emergency E [facility] [id number] 08:33:00 08:33:00 [facility] 2017-08-05 2017-08-05 Outpatient [facility] [id number] [place] 00:00:00 00:00:00 [facility] 2017-07-28 2017-07-28 Outpatient [facility] [id number] [place] 00:00:00 00:00:00 [facility] 2017-06-24 2017-06-24 Outpatient [facility] [id number] [place] 00:00:00 00:00:00 [facility] 2017-06-22 2017-06-22 Emergency [facility] [id number] [place] 21:37:29 21:37:29 [facility] 2017-06-22 2017-06-22 Emergency [facility] MED [id number] [place] 21:06:00 21:06:00 [facility] 2017-06-22 2017-06-22 Outpatient [facility] [id number] [place] 10:02:31 10:02:31 [facility] 2017-06-09 2017-06-09 Outpatient [facility] [id number] [place] 00:00:00 00:00:00 [facility] 2017-06-09 2017-06-09 Outpatient [facility] [id number] [place] 00:00:00 00:00:00 [facility] 2017-05-08 2017-05-08 Emergency [facility] MED [id number] [place] 01:04:44 01:04:44 [facility] 2017-05-05 2017-05-05 Emergency E [facility] [id number] 08:11:00 08:11:00 [facility] 2017-04-15 2017-04-15 Emergency E [facility] [id number] 09:53:00 09:53:00 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 Negative: <= 0.08 Positive: >= [...] changes in trop onin levels characteristic of [place]. BASIC METABOLIC [id number] 14:56:00 Test Item Value Reference Range Interpretation [...] MG/DL 70-110 N - XR CHEST 1 [id number] 00:00:00 [facility]AB[facility] JOSEPH : 1970 Sex: M FAX: Steve Urias MD [phone] [place]: [place] St: REG Name: JOSEPHMARIA ISABEL FSED : 1970 Age/S: 52/M [address] [facility] Unit #: [id number] Loc: [place] [address] Phys: Steve Urias MD Acct: [id number] DisDate: Status: REG ER PHONE #: Exam Date: 03/29/2022 4012 FAX #: Reason: Weakness EXAMS: CPT CODE: [id number] XR CHEST 1 V 80610 PROCEDURE INFORMATION: Exam: XR Chest Exam date [...] CC: Steve Urias MD Technologist: RT Simone(R)(CT) Trnderd Date/Time/By: 03/29/2022 (1530) : By: [email or web address] Orig Print D/T: S: 03/29/2022 (1531) PAGE 1 Signed ReportHEPATIC FUNCTION [id number] 06:45:03 Test Item Value Reference Range Interpretation [...] code = 13 U/L 6-55 347) Field Marketing Team Leader ID - ERWIN WBASIC METABOLIC [id number] 06:45:02 Test Item Value Reference Range Interpretation [...] NOT APPLICABLE FOR DIALYSIS PATIEN TS. Field Marketing Team Leader ID - ERWIN WCBC W/PLT COUNT & AUTO [id number] 06:26:54 Test Item Value Reference Range Interpretation [...] (BEAKER) (test code = 2801) U/S, RENAL, [id number] 19:23:00Reason for exam:->acute kidney [facility] 1970 [...] SARS-Co V-2 (test code = target nucleic 64835-1) acids are not detected in thi s [...] om SARS-CoV-2 in a nasopharyngeal swab specimen [facility] from individual s suspected of COVID-19 [...] revoked sooner. Fact Sheet for Healthcare Providers: https://www.Jackpocket/Documents/Xp ert%20Xpress%20SAR S%20CoV-2/Fact%20S heets/302-5802%20S ARS-COV-2%20HEALTH CARE%20PROVIDERS%2 0FACT%20SHEET.pdf Fact Sheet for Healthcare Patients: https://www.Jack[employer]/Documents/Xp ert%20Xpress%20SAR S%20CoV-2/Fact%20S heets/302-3801%20S ARS-COV-2%20PATIEN T%20FACT%20SHEET.p df Lab Interpretation Normal (test code = 55067-5) [facility]Asymptomatic ONLY)2022-03-06 19:17:07 Test Item Value Reference Interpretation Comments Range SARS-COV2/RT-PCR Negative Negative The SARS-Co V-2 (test code = target nucleic 27864-6) acids are not detected in thi s [...] revoked sooner. Fact Sheet for Healthcare Providers: https://www.Jackpocket/Documents/Xp ert%20Xpress%20SAR S%20CoV-2/Fact%20S heets/302-3802%20S ARS-COV-2%20HEALTH CARE%20PROVIDERS%2 0FACT%20SHEET.pdf Fact Sheet for Healthcare Patients: https://www.Jackpocket/Documents/Xp ert%20Xpress%20SAR S%20CoV-2/Fact%20S heets/302-3801%20S ARS-COV-2%20PATIEN T%20FACT%20SHEET.p df Lab Interpretation Normal (test code = 29506-5) [facility] 19:17:07 Test Item Value Reference Interpretation Comments Range SARS-COV2/RT-PCR Negative Negative The SARS-Co V-2 (test code = target nucleic 88861-1) acids are not detected in thi s [...] revoked sooner. Fact Sheet for Healthcare Providers: https://www.Jackpocket/Documents/Xp ert%20Xpress%20SAR S%20CoV-2/Fact%20S heets/3023802%20S ARS-COV-2%20HEALTH CARE%20PROVIDERS%2 0FACT%20SHEET.pdf Fact Sheet for Healthcare Patients: https://www.Jackpocket/Documents/Xp ert%20Xpress%20SAR S%20CoV-2/Fact%20S heets/3023801%20S ARS-COV-2%20PATIEN T%20FACT%20SHEET.p df Lab Interpretation Normal (test code = 92233-4) [facility]2022-03-06 19:17:07 Test Item Value Reference Interpretation Comments Range SARS-COV2/RT-PCR Negative Negative The SARS-Co V-2 (test code = target nucleic 36632-5) acids are not detected in thi s [...] revoked sooner. Fact Sheet for Healthcare Providers: https://www.Jackpocket/Documents/Xp ert%20Xpress%20SAR S%20CoV-2/Fact%20S heets/302-3802%20S ARS-COV-2%20HEALTH CARE%20PROVIDERS%2 0FACT%20SHEET.pdf Fact Sheet for Healthcare Patients: https://www.Jackpocket/Documents/Xp ert%20Xpress%20SAR S%20CoV-2/Fact%20S heets/302-3801%20S ARS-COV-2%20PATIEN T%20FACT%20SHEET.p df Lab Interpretation Normal (test code = 71762-9) [facility]2022-03-06 19:17:07 Test Item Value Reference Interpretation Comments Range SARS-COV2/RT-PCR Negative Negative The SARS-Co V-2 (test code = target nucleic 94104-9) acids are not detected in thi s [...] revoked sooner. Fact Sheet for Healthcare Providers: https://www.Jackpocket/Documents/Xp ert%20Xpress%20SAR S%20CoV-2/Fact%20S heets/302-3802%20S ARS-COV-2%20HEALTH CARE%20PROVIDERS%2 0FACT%20SHEET.pdf Fact Sheet for Healthcare Patients: https://www.Jackpocket/Documents/Xp ert%20Xpress%20SAR S%20CoV-2/Fact%20S heets/302-3801%20S ARS-COV-2%20PATIEN T%20FACT%20SHEET.p df Lab Interpretation Normal (test code = 75484-4) [facility]2022-03-06 19:17:07 Test Item Value Reference Interpretation Comments Range SARS-COV2/RT-PCR Negative Negative The SARS-Co V-2 (test code = target nucleic 23442-5) acids are not detected in thi s [...] revoked sooner. Fact Sheet for Healthcare Providers: https://www.Jackpocket/Documents/Xp ert%20Xpress%20SAR S%20CoV-2/Fact%20S heets/302-3802%20S ARS-COV-2%20HEALTH CARE%20PROVIDERS%2 0FACT%20SHEET.pdf Fact Sheet for Healthcare Patients: https://www.Jackpocket/Documents/Xp ert%20Xpress%20SAR S%20CoV-2/Fact%20S heets/302-3801%20S ARS-COV-2%20PATIEN T%20FACT%20SHEET.p df Lab Interpretation Normal (test code = 02375-6) [facility]2022-03-06 19:17:07 Test Item Value Reference Interpretation Comments Range SARS-COV2/RT-PCR Negative Negative The SARS-Co V-2 (test code = target nucleic 78708-2) acids are not detected in thi s [...] revoked sooner. Fact Sheet for Healthcare Providers: https://www.Jackpocket/Documents/Xp ert%20Xpress%20SAR S%20CoV-2/Fact%20S heets/302-3802%20S ARS-COV-2%20HEALTH CARE%20PROVIDERS%2 0FACT%20SHEET.pdf Fact Sheet for Healthcare Patients: https://www.Jackpocket/Documents/Xp ert%20Xpress%20SAR S%20CoV-2/Fact%20S heets/302-3801%20S ARS-COV-2%20PATIEN T%20FACT%20SHEET.p df Lab Interpretation Normal (test code = 78168-8) [facility]2022-03-06 19:17:07 Test Item Value Reference Interpretation Comments Range SARS-COV2/RT-PCR Negative Negative The SARS-Co V-2 (test code = target nucleic 15975-7) acids are not detected in thi s [...] revoked sooner. Fact Sheet for Healthcare Providers: https://www.Jackpocket/Documents/Xp ert%20Xpress%20SAR S%20CoV-2/Fact%20S heets/302-3802%20S ARS-COV-2%20HEALTH CARE%20PROVIDERS%2 0FACT%20SHEET.pdf Fact Sheet for Healthcare Patients: https://www.Jackpocket/Documents/Xp ert%20Xpress%20SAR S%20CoV-2/Fact%20S heets/302-3801%20S ARS-COV-2%20PATIEN T%20FACT%20SHEET.p df Lab Interpretation Normal (test code = 81299-4) [facility]2022-03-06 19:17:07 Test Item Value Reference Interpretation Comments Range SARS-COV2/RT-PCR Negative Negative The SARS-Co V-2 (test code = target nucleic 45899-0) acids are not detected in thi s [...] revoked sooner. Fact Sheet for Healthcare Providers: https://www.Jackpocket/Documents/Xp ert%20Xpress%20SAR S%20CoV-2/Fact%20S heets/302-3802%20S ARS-COV-2%20HEALTH CARE%20PROVIDERS%2 0FACT%20SHEET.pdf Fact Sheet for Healthcare Patients: https://www.Jackpocket/Documents/Xp ert%20Xpress%20SAR S%20CoV-2/Fact%20S heets/302-3801%20S ARS-COV-2%20PATIEN T%20FACT%20SHEET.p df Lab Interpretation Normal (test code = 56026-3) [facility]2022-03-06 19:17:07 Test Item Value Reference Interpretation Comments Range SARS-COV2/RT-PCR Negative Negative The SARS-Co V-2 (test code = target nucleic 49688-4) acids are not detected in thi s [...] revoked sooner. Fact Sheet for Healthcare Providers: https://www.Jackpocket/Documents/Xp ert%20Xpress%20SAR S%20CoV-2/Fact%20S heets/302-3802%20S ARS-COV-2%20HEALTH CARE%20PROVIDERS%2 0FACT%20SHEET.pdf Fact Sheet for Healthcare Patients: https://wwwD&B Auto Solutions/Documents/Xp ert%20Xpress%20SAR S%20CoV-2/Fact%20S heets/302-3801%20S ARS-COV-2%20PATIEN T%20FACT%20SHEET.p df Lab Interpretation Normal (test code = 96065-5) [facility]2022-03-06 19:17:07 Test Item Value Reference Interpretation Comments Range SARS-COV2/RT-PCR Negative Negative The SARS-Co V-2 (test code = target nucleic 75696-7) acids are not detected in thi s [...] revoked sooner. Fact Sheet for Healthcare Providers: https://www.Jackpocket/Documents/Xp ert%20Xpress%20SAR S%20CoV-2/Fact%20S heets/302-3802%20S ARS-COV-2%20HEALTH CARE%20PROVIDERS%2 0FACT%20SHEET.pdf Fact Sheet for Healthcare Patients: https://wwwD&B Auto Solutions/Documents/Xp ert%20Xpress%20SAR S%20CoV-2/Fact%20S heets/302-3801%20S ARS-COV-2%20PATIEN T%20FACT%20SHEET.p df Lab Interpretation Normal (test code = 78080-3) [facility]2022-03-06 19:17:07 Test Item Value Reference Interpretation Comments Range SARS-COV2/RT-PCR Negative Negative The SARS-Co V-2 (test code = target nucleic 60215-8) acids are not detected in thi s [...] revoked sooner. Fact Sheet for Healthcare Providers: https://www.Jackpocket/Documents/Xp ert%20Xpress%20SAR S%20CoV-2/Fact%20S heets/302-3802%20S ARS-COV-2%20HEALTH CARE%20PROVIDERS%2 0FACT%20SHEET.pdf Fact Sheet for Healthcare Patients: https://www.Jack[employer]/Documents/Xp ert%20Xpress%20SAR S%20CoV-2/Fact%20S heets/302-3801%20S ARS-COV-2%20PATIEN T%20FACT%20SHEET.p df Lab Interpretation Normal (test code = 33112-3) [facility]2022-03-06 19:17:07 Test Item Value Reference Interpretation Comments Range SARS-COV2/RT-PCR Negative Negative The SARS-Co V-2 (test code = target nucleic 07583-2) acids are not detected in thi s [...] is improperly collected, transported or handled. This SARS CoV-2 test is a rapid, real-kyle e [...] revoked sooner. Fact Sheet for Healthcare Providers: https://www.Jackpocket/Documents/Xp ert%20Xpress%20SAR S%20CoV-2/Fact%20S heets/302-3802%20S ARS-COV-2%20HEALTH CARE%20PROVIDERS%2 0FACT%20SHEET.pdf Fact Sheet for Healthcare Patients: https://www.Jackpocket/Documents/Xp ert%20Xpress%20SAR S%20CoV-2/Fact%20S heets/302-3801%20S ARS-COV-2%20PATIEN T%20FACT%20SHEET.p df Lab Interpretation Normal (test code = 32299-7) [facility]2022-03-06 19:17:07 Test Item Value Reference Interpretation Comments Range SARS-COV2/RT-PCR Negative Negative The SARS-Co V-2 (test code = target nucleic 85751-9) acids are not detected in thi s [...] revoked sooner. Fact Sheet for Healthcare Providers: https://www.Jackpocket/Documents/Xp ert%20Xpress%20SAR S%20CoV-2/Fact%20S heets/302-3802%20S ARS-COV-2%20HEALTH CARE%20PROVIDERS%2 0FACT%20SHEET.pdf Fact Sheet for Healthcare Patients: https://www.Jackpocket/Documents/Xp ert%20Xpress%20SAR S%20CoV-2/Fact%20S heets/302-3801%20S ARS-COV-2%20PATIEN T%20FACT%20SHEET.p df Lab Interpretation Normal (test code = 59000-6) [facility]2022-03-06 19:17:07 Test Item Value Reference Interpretation Comments Range SARS-COV2/RT-PCR Negative Negative The SARS-Co V-2 (test code = target nucleic 84398-1) acids are not detected in thi s [...] om SARS-CoV-2 in a [facility]opharyngeal [facility]ab [facility] s suspected of COVID-19 by [...] revoked sooner. Fact Sheet for Healthcare Providers: https://www.Jackpocket/Documents/Xp ert%20Xpress%20SAR S%20CoV-2/Fact%20S heets/302-3802%20S ARS-COV-2%20HEALTH CARE%20PROVIDERS%2 0FACT%20SHEET.pdf Fact Sheet for Healthcare Patients: https://www.Jackpocket/Documents/Xp ert%20Xpress%20SAR S%20CoV-2/Fact%20S heets/302-3801%20S ARS-COV-2%20PATIEN T%20FACT%20SHEET.p df Lab Interpretation Normal (test code = 66049-5) [facility]2022-03-06 19:17:07 Test Item Value Reference Interpretation Comments Range SARS-COV2/RT-PCR Negative Negative The SARS-Co V-2 (test code = target nucleic 49627-5) acids are not detected in thi s [...] revoked sooner. Fact Sheet for Healthcare Providers: https://www.Jackpocket/Documents/Xp ert%20Xpress%20SAR S%20CoV-2/Fact%20S heets/302-3802%20S ARS-COV-2%20HEALTH CARE%20PROVIDERS%2 0FACT%20SHEET.pdf Fact Sheet for Healthcare Patients: https://www.Jackpocket/Documents/Xp ert%20Xpress%20SAR S%20CoV-2/Fact%20S heets/302-3801%20S ARS-COV-2%20PATIEN T%20FACT%20SHEET.p df Lab Interpretation Normal (test code = 56245-4) [facility]2022-03-06 19:17:07 Test Item Value Reference Interpretation Comments Range SARS-COV2/RT-PCR Negative Negative The SARS-Co V-2 (test code = target nucleic 59214-4) acids are not detected in thi s [...] revoked sooner. Fact Sheet for Healthcare Providers: https://www.Jackpocket/Documents/Xp ert%20Xpress%20SAR S%20CoV-2/Fact%20S heets/302-3802%20S ARS-COV-2%20HEALTH CARE%20PROVIDERS%2 0FACT%20SHEET.pdf Fact Sheet for Healthcare Patients: https://www.Jackpocket/Documents/Xp ert%20Xpress%20SAR S%20CoV-2/Fact%20S heets/302-3801%20S ARS-COV-2%20PATIEN T%20FACT%20SHEET.p df Lab Interpretation Normal (test code = 50780-0) [facility])2022-03-06 19:17:07 Test Item Value Reference Range Interpretation Comments SARS-COV2/RT-PCR Negative Negative The SARS-Co V-2 target (test code = nucleic acids a re not 9262584) detected in thi s specimen. Negative result [...] revoked sooner. Fact Sheet for Healthcare Providers: https://www.[employer] m/Documents/Xpert%20Xpress%20SARS%20CoV-2/Fact%20Sheets/3023802%26DHDJ-DKU-1%20 HEALTHCARE%20PROVIDERS%20FACT%20SHEET.pdf Fact Sheet for Healthcare Patients: https://www.[employer]/Documents/Xpert%20Xp ress%20SARS%20CoV-2/Fact%20Sheets/302-3801%46TOQP-AGM-8%20PATIENT%20FACT%20SHEET .pdfCREATINE KINASE (CK)2022-03-06 16:19:14 Test Item Value Reference Range Interpretation Comments CREATINE KINASE TOTAL (BEAKER) (test 141 U/L 29-200 code = 380) Field Marketing Team Leader ID - BST4, [id number] 15:13:16 Test Item Value Reference Range Interpretation Comments FREE T4 (BEAKER) (test code = 655) 0.95 ng/dL 0.70-1.48 Field Marketing Team Leader ID - BSTSH/FREE T4 IF [id number] 15:13:16 Test Item Value Reference Range Interpretation Comments THYROID STIMULATING HORMONE 2.060 uIU/mL 0.350-4.940 (BEAKER) (test code = 772) Field Marketing Team Leader ID - BSB-TYPE NATRIURETIC FACTOR (BNP)2022-03-06 14:26:30 Test Item Value Reference Range Interpretation Comments B-TYPE NATRIURETIC PEPTIDE (BEAKER) < pg/mL 0-100 (test code = 700) Field Marketing Team Leader ID - JSHIGH SENSITIVITY TROPONIN [id number] 14:14:54 Test Item Value Reference Range Interpretation Comments HIGH SENSITIVITY < pg/ml See_Comment [Automated message] TROPONIN I (test code = The system which 5455893) generated this result transmitted ref erence range: <=35. Th e reference range was not used to interpr et this result as normal/abnormal . Field Marketing Team Leader ID - JSThe OIL RECOVERY UNIT OPERATOR STAT High Sensitivity Troponin-I results should be used in conjunctionwith other diagnostic information such as ECG, clinical observations and information, and patient symptoms to aid in the diagnosis of IL.RAD, CHEST, 1 VIEW, NON [id number] 14:10:00Reason for exam:- >NEUROLOGIC PROBLEMShould this be performed at the bedside?->Yes [facility] DORAJUANIT[facility] NICOLAS : 1970 Sex: MFINAL REPORT Chest, 1 view, 03/06/2022 2:03 PM. History: Neurologic problem. Comparison: 03/28/2019. Discussion: The cardiomediastinal silhouette and pulmonary vasculature are within normal limits for a portable exam. The lungs are clear without evidence of consolidation or effusion. The soft tissues and osseous structures are intact. IMPRESSION: No acute cardiopulmonary abnormality. Signed: Bernabe Brown Verified Date/Time: 03/06/2022 14:10:44 REHENSIVE METABOLIC [id number] 14:08:22 Test Item Value Reference Range Interpretation [...] NOT APPLICABLE FOR DIALYSIS PATIEN TS. Field Marketing Team Leader ID - [id number] 14:07:49 Test Item Value Reference Range Interpretation Comments MAGNESIUM (BEAKER) (test code = 2.0 mg/dL 1.6-2.6 627) Field Marketing Team Leader ID - [id number] 14:07:49 Test Item Value Reference Range Interpretation Comments PHOSPHORUS (BEAKER) (test code = 5.6 mg/dL 2.3-4.7 H 604) Field Marketing Team Leader ID - JSLACTIC ACID, [id number] 13:51:04 Test Item Value Reference Range Interpretation Comments LACTATE BLOOD VENOUS 1.32 mmol/L 0.50-2.20 Specime n slightly (2) (BEAKER) (test hemolyzed code = 6532) Field Marketing Team Leader ID - JSCBC W/PLT COUNT & AUTO [id number] 13:47:24 Test Item Value Reference Range Interpretation [...] (BEAKER) (test code = 2801) Coronavirus, CoVID-19, [id number] 01:07:20 Test Item Value Reference Range Interpretation Comments COVID-19 (SARS-COV-2) Not Detected Not Detected INTERP RETATION: No (test code = 91317-3) detect able levels of SARS-CoV-2 Coronavirus (COVID-19) [...] SARS-CoV-2 mole cular diagnostic assa y utilizes Arch Support Maker Mediated Amplification ( TMA) technology to r apidly detect the SARS -CoV-2 (COVID-19) viru s from respiratory adriana ples. In accordance w ith the FDA's kamran nce document "Polic y for Diagnostic Test s for Coronavirus Disease-2019 du [facility] the [facility] [place]", thi s test was developed, and its performance characteristics were verified by the [facility] molecular diagn ostics laboratory and is authorized for clinical diagno stic use. This labor atory is certified un [place] the Clinical Laboratory Improvement Amendments (CLI A) as qualified to pe rform high complexity clinical labora tory testing. Lab Interpretation Normal (test code = 93708-8) [facility] [id number] 01:07:20 Test Item Value Reference Range Interpretation Comments COVID-19 (SARS-COV-2) Not Detected Not Detected INTERP RETATION: No (test code = 82983-4) detect able levels of SARS-CoV-2 Coronavirus (COVID-19) [...] SARS-CoV-2 mole cular diagnostic assa y utilizes Arch Support Maker Mediated Amplification ( TMA) technology to r [...] [facility] and is authorized for clinical diagno stic use. This labor atory is certified un [place] the Clinical Laboratory Improvement Amendments (CLI A) as qualified to pe rform high complexity clinical labora tory testing. Lab Interpretation Normal (test code = 53215-1) Maged Aaronavirus, CoVID-19, [id number] 01:07:20 Test Item Value Reference Range Interpretation Comments COVID-19 (SARS-COV-2) Not Detected Not Detected INTERP RETATION: No (test code = 12004-7) detect able levels of SARS-CoV-2 Coronavirus (COVID-19) [...] SARS-CoV-2 mole cular diagnostic assa y utilizes Arch Support Maker Mediated Amplification ( TMA) technology to r [...] [facility] and is authorized for clinical diagno stic use. This labor atory is certified [place] the Clinical Laboratory Improvement Amendments (CLI A) as qualified to pe rform high complexity clinical labora tory testing. Lab Interpretation Normal (test code = 82824-7) Maged Aaronavirus, CoVID-19, [id number] 01:07:20 Test Item Value Reference Range Interpretation Comments COVID-19 (SARS-COV-2) Not Detected Not Detected INTERP RETATION: No (test code = 44411-5) detect able levels of SARS-CoV-2 Coronavirus (COVID-19) [...] SARS-CoV-2 mole cular diagnostic assa y utilizes Arch Support Maker Mediated Amplification ( TMA) technology to r apidly detect the SARS -CoV-2 (COVID-19) viru s from respiratory adriana ples. In accordance w ith the FDA's kamran nce document "Polic y for Diagnostic Test s for Coronavirus Disease-2018 du [facility] the [facility]", thi s test was developed, and its performance characteristics were verified by the [facility] molecular diagn ostics laboratory and is authorized for clinical diagno stic use. This labor atory is certified un [place] the Clinical Laboratory Improvement Amendments (CLI A) as qualified to pe rform high complexity clinical labora tory testing. Lab Interpretation Normal (test code = 85051-6) [facility], [facility], [id number] 01:07:20 Test Item Value Reference Range Interpretation Comments COVID-19 (SARS-COV-2) Not Detected Not Detected INTERP RETATION: No (test code = 22380-8) detect able levels of SARS-CoV-2 Coronavirus (COVID-19) [...] SARS-CoV-2 mole cular diagnostic assa y utilizes Arch Support Maker Mediated Amplification ( TMA) technology to r apidly detect the SARS -CoV-2 (COVID-19) viru s from respiratory adriana ples. In accordance w ith the FDA's kamran nce document "Polic y for Diagnostic Test s for Coronavirus Disease-2019 [facility] the Public [facility]", thi s test was developed, and its performance characteristics were verified by the [facility] molecular diagn ostics laboratory and is authorized for clinical diagno stic use. This labor atory is certified un [place] the Clinical Laboratory Improvement Amendments (CLI A) as qualified to pe rform high complexity clinical labora tory testing. Lab Interpretation Normal (test code = 12305-1) [facility], [facility], [id number] 01:07:20 Test Item Value Reference Range Interpretation Comments COVID-19 (SARS-COV-2) Not Detected Not Detected INTERP RETATION: No (test code = 81538-8) detect able levels of SARS-CoV-2 Coronavirus (COVID-19) [...] SARS-CoV-2 mole cular diagnostic assa y utilizes Arch Support Maker Mediated Amplification ( TMA) technology to r apidly detect the SARS -CoV-2 (COVID-19) viru s from respiratory adriana ples. In accordance w ith the FDA's kamran nce document "Polic y for Diagnostic Test s for Coronavirus Disease-2019 [facility] the Public [facility]", thi s test was developed, and its performance characteristics were verified by the [facility] molecular diagn ostics laboratory and is authorized for clinical diagno stic use. This labor atory is certified un [place] the Clinical Laboratory Improvement Amendments (CLI A) as qualified to pe rform high complexity clinical labora tory testing. Lab Interpretation Normal (test code = 97528-1) Lynne KandiCoronavirus, CoVID-19, [id number] 01:07:20 Test Item Value Reference Range Interpretation Comments COVID-19 (SARS-COV-2) Not Detected Not Detected INTERP RETATION: No (test code = 58974-4) detect able levels of SARS-CoV-2 Coronavirus (COVID-19) [...] SARS-CoV-2 mole cular diagnostic assa y utilizes Arch Support Maker Mediated Amplification ( TMA) technology to r [...] [facility] diagn [facility] laboratory and is authorized for clinical diagno stic use. This labor atory is certified [place] the Clinical Laboratory Improvement Amendments (CLI A) as qualified to pe rform high complexity clinical labora tory testing. Lab Interpretation Normal (test code = 81640-0) [facility], [id number] 01:07:20 Test Item Value Reference Range Interpretation Comments COVID-19 (SARS-COV-2) Not Detected Not Detected INTERP RETATION: No (test code = 02589-3) detect able levels of SARS-CoV-2 Coronavirus (COVID-19) [...] SARS-CoV-2 mole cular diagnostic assa y utilizes Arch Support Maker Mediated Amplification ( TMA) technology to r apidly detect the SARS -CoV-2 (COVID-19) viru s from respiratory adriana ples. In accordance w ith the FDA's kamran nce document "Polic y for Diagnostic Test s for Coronavirus Disease-2019 du [facility] the [facility]", thi s test was developed, and its performance characteristics were verified by the [facility] molecular diagn ostics laboratory and is authorized for clinical diagno stic use. This labo ratory is certified un [place] the Clinical Laboratory Improvement Amendments (CLI A) as qualified to pe rform high complexity clinical labora tory testing. Lab Interpretation Normal (test code = 26008-8) [facility], [facility]VID-19, [id number] 01:07:20 Test Item Value Reference Range Interpretation Comments COVID-19 (SARS-COV-2) Not Detected Not Detected INTERP RETATION: No (test code = 92720-7) detect able levels of SARS-CoV-2 Coronavirus (COVID-19) [...] SARS-CoV-2 mole cular diagnostic assa y utilizes Arch Support Maker Mediated Amplification ( TMA) technology to r apidly detect the SARS -CoV-2 (COVID-19) viru s from respiratory adriana ples. In accordance w ith the FDA's kamran nce document "Polic y for Diagnostic Test s for Coronavirus Disease-2019 [facility] the Public [facility]", thi s test was developed, and its performance characteristics were verified by the [facility] molecular diagn ostics laboratory and is authorized for clinical diagno stic use. This labor atory is certified [place] the Clinical Laboratory Improvement Amendments (CLI A) as qualified to pe rform high complexity clinical labora tory testing. Lab Interpretation Normal (test code = 44852-1) [facility], CoVID-19, [id number] 01:07:20 Test Item Value Reference Range Interpretation Comments COVID-19 (SARS-COV-2) Not Detected Not Detected INTERP RETATION: No (test code = 77259-3) detect able levels of SARS-CoV-2 Coronavirus (COVID-19) [...] SARS-CoV-2 mole cular diagnostic assa y utilizes Arch Support Maker Mediated Amplification ( TMA) technology to r apidly detect the SARS -CoV-2 (COVID-19) viru s from respiratory adriana ples. In accordance w ith the FDA's kamran nce document "Polic y for Diagnostic Test s for Coronavirus Disease-2019 du ring the Public [facility] th Emergency", thi s test was developed, and its performance characteristics were verified by the [facility] molecular diagn ostics laboratory and is authorized for clinical diagno stic use. This labor atory is certified un est[place]an the Clinical Laboratory Improvement Amendments (CLI A) as qualified to pe rform high complexity clinical labora tory testing. Lab Interpretation Normal (test code = 49624-6) [facility] KandiCoronavirus, CoVID-19, [id number] 01:07:20 Test Item Value Reference Range Interpretation Comments COVID-19 (SARS-COV-2) Not Detected Not Detected INTERP RETATION: No (test code = 62957-3) detect able levels of SARS-CoV-2 Coronavirus (COVID-19) [...] SARS-CoV-2 mole cular diagnostic assa y utilizes Arch Support Maker Mediated Amplification ( TMA) technology to r [...] [facility] and is authorized for clinical diagno stic use. This labor atory is certified un [place] the Clinical Laboratory Improvement Amendments (CLI A) as qualified to pe rform high complexity clinical labora tory testing. Lab Interpretation Normal (test code = 06473-7) [facility], [facility], [id number] 01:07:20 Test Item Value Reference Range Interpretation Comments COVID-19 (SARS-COV-2) Not Detected Not Detected INTERP RETATION: No (test code = 70034-1) detect able levels of SARS-CoV-2 Coronavirus (COVID-19) [...] SARS-CoV-2 mole cular diagnostic assa y utilizes Arch Support Maker Mediated Amplification ( TMA) technology to r apidly detect the SARS -CoV-2 (COVID-19) viru s from respiratory adriana ples. In accordance w ith the FDA's kamran nce document "Polic y for Diagnostic Test s for Coronavirus Disease-2019 du [facility] the Public [facility] Emergency", thi s test was developed, and its performance characteristics were verified by the [facility] molecular diagn ostics laboratory and is authorized for clinical diagno stic use. This labor atory is certified un [place] the Clinical Laboratory Improvement Amendments (CLI A) as qualified to pe rform high complexity clinical labora tory testing. Lab Interpretation Normal (test code = 57872-2) [facility], [facility]-19, [id number] 01:07:20 Test Item Value Reference Range Interpretation Comments COVID-19 (SARS-COV-2) Not Detected Not Detected INTERP RETATION: No (test code = 70494-6) detect able levels of SARS-CoV-2 Coronavirus (COVID-19) [...] SARS-CoV-2 mole cular diagnostic assa y utilizes Arch Support Maker Mediated Amplification ( TMA) technology to r [...] [facility] and is authorized for clinical diagno stic use. This labor atory is certified un [place] the Clinical Laboratory Improvement Amendments (CLI A) as qualified to pe rform high complexity clinical labora tory testing. Lab Interpretation Normal (test code = 17724-3) [facility], CoV[facility]-19, [id number] 01:07:20 Test Item Value Reference Range Interpretation Comments COVID-19 (SARS-COV-2) Not Detected Not Detected INTERP RETATION: No (test code = 96283-2) detect able levels of SARS-CoV-2 Coronavirus (COVID-19) [...] SARS-CoV-2 mole cular diagnostic assa y utilizes Arch Support Maker Mediated Amplification ( TMA) technology to r apidly detect the SARS -CoV-2 (COVID-19) viru s from respiratory adriana ples. In accordance w ith the FDA's kamran nce document "Polic y for Diagnostic Test s for Coronavirus Disease-2019 du [facility] the Public [facility] Emergency", thi s test was developed, and its performance characteristics were verified by the [facility] molecular diagn ostics laboratory and is authorized for clinical diagno stic use. This labor atory is certified un [place] the Clinical Laboratory Improvement Amendments (CLI A) as qualified to pe rform high complexity clinical labora tory testing. Lab Interpretation Normal (test code = 90930-3) [facility], CoV[facility]-19, [id number] 01:07:20 Test Item Value Reference Range Interpretation Comments COVID-19 (SARS-COV-2) Not Detected Not Detected INTERP RETATION: No (test code = 96291-1) detect able levels of SARS-CoV-2 Coronavirus (COVID-19) [...] SARS-CoV-2 mole cular diagnostic assa y utilizes Arch Support Maker Mediated Amplification ( TMA) technology to r apidly detect the SARS -CoV-2 (COVID-19) viru s from respiratory adriana ples. In accordance w ith the FDA's kamran nce document "Polic y for Diagnostic Test s for Coronavirus Disease-2019 du [facility] the Public [facility] Emergency", thi s test was developed, and its performance characteristics were verified by the [facility] molecular diagn ostics laboratory and is authorized for clinical diagno stic use. This labor atory is certified un [place] the Clinical Laboratory Improvement Amendments (CLI A) as qualified to pe rform high complexity clinical labora tory testing. Lab Interpretation Normal (test code = 18268-2) [facility], CoV[facility]-19, [id number] 01:07:20 Test Item Value Reference Range Interpretation Comments COVID-19 (SARS-COV-2) Not Detected Not Detected INTERP RETATION: No (test code = 23888-0) detect able levels of SARS-CoV-2 Coronavirus (COVID-19) [...] SARS-CoV-2 mole cular diagnostic assa y utilizes Arch Support Maker Mediated Amplification ( TMA) technology to r apidly detect the SARS -CoV-2 (COVID-19) viru s from respiratory adriana ples. In accordance w ith the FDA's kamran nce document "Polic y for Diagnostic Test s for Coronavirus Disease-2019 du [facility] the Public [facility] Emergency", thi s test was developed, and its performance characteristics were verified by the [facility] molecular diagn ostics laboratory and is authorized for clinical diagno stic use. This labor atory is certified un [place] the Clinical Laboratory Improvement Amendments (CLI A) as qualified to pe rform high complexity clinical labora tory testing. Lab Interpretation Normal (test code = 40786-7) [facility] CenterBwftzxUWFV-XcU-4 ORF1ab Resp Ql OLENA+daixg3526-26-36 01:07:20 Test Item Value Reference Range Interpretation Comments Hospitalized? (test No code = 77506-6) ICU? (test code = No 34172-2) Symptomatic as No defined by CDC? (test code = 39535-1) Employed in No Healthcare? (test code = 29416-7) Resident in a No congregate care setting (including nursing homes, residential care for people with intellectual and developmental disabilities, psychiatric treatment facilities, group homes, board and care homes, homeless fpc, foster care or other): (test code = 26551-4) SARS-CoV-2 ORF1ab NOT DETECTED Not Detected INTERPRETA TION: No Resp Ql OLENA+probe detectable levels of (test code = SARS-CoV-2 57665-0) Coronavirus (COVID-19) were present in this patient's [...] SARS-CoV-2 mole cular diagnostic assa y utilizes Arch Support Maker Mediated Amplification ( TMA) technology to r apidly detect the SARS -CoV-2 (COVID-19) viru s from respiratory adriana ples. In accordance with\\XC2A0\\the FDA's guidance docume nt "Policy for Diagnostic Test s for Coronavirus Disease-2019 du [facility] the [facility] Emergency", ginger s test was developed, and its performance characteristics were verified by the [facility] molecular diagn ostics laboratory and is authorized for clinical diagno stic use. \\XC2A0\\[facility] s laboratory is certified under the Clinical Labora tory Improvement Amendments (CLI A) as qualified to pe rform high complexity clinical labora tory testing. [facility] [id number] 08:09:01 Test Item Value Reference Range Interpretation Comments Glucose POC (test code = 81388311) 85 mg/dL 74-106 Lab Interpretation (test code = Normal 35049-1) [facility] [id number] 08:09:01 Test Item Value Reference Range Interpretation Comments Glucose POC (test code = 37138700) 85 mg/dL 74-106 Lab Interpretation (test code = Normal 27829-2) [facility] [id number] 08:09:01 Test Item Value Reference Range Interpretation Comments Glucose POC (test code = 97839212) 85 mg/dL 74-106 Lab Interpretation (test code = Normal 06895-3) [facility]ed [id number] 08:09:01 Test Item Value Reference Range Interpretation Comments Glucose POC (test code = 00145308) 85 mg/dL 74-106 Lab Interpretation (test code = Normal 12490-3) [facility]ed [id number] 08:09:01 Test Item Value Reference Range Interpretation Comments Glucose POC (test code = 08005140) 85 mg/dL 74-106 Lab Interpretation (test code = Normal 22265-3) [facility] docked [id number] 08:09:01 Test Item Value Reference Range Interpretation Comments Glucose POC (test code = 34894951) 85 mg/dL 74-106 Lab Interpretation (test code = Normal 64781-1) [facility] oqfbvt5638-67-20 08:09:01 Test Item Value Reference Range Interpretation Comments Glucose POC (test code = 49498833) 85 mg/dL 74-106 Lab Interpretation (test code = Normal 50269-7) [facility]ed [id number] 08:09:01 Test Item Value Reference Range Interpretation Comments Glucose POC (test code = 52688426) 85 mg/dL 74-106 Lab Interpretation (test code = Normal 66511-8) [facility]ed [id number] 08:09:01 Test Item Value Reference Range Interpretation Comments Glucose POC (test code = 58713856) 85 mg/dL 74-106 Lab Interpretation (test code = Normal 95618-9) [facility]ed [id number] 08:09:01 Test Item Value Reference Range Interpretation Comments Glucose POC (test code = 03780228) 85 mg/dL 74-106 Lab Interpretation (test code = Normal 72592-4) [facility]ed [id number] 08:09:01 Test Item Value Reference Range Interpretation Comments Glucose POC (test code = 64599990) 85 mg/dL 74-106 Lab Interpretation (test code = Normal 83330-6) [facility] [id number] 08:09:01 Test Item Value Reference Range Interpretation Comments Glucose POC (test code = 10957118) 85 mg/dL 74-106 Lab Interpretation (test code = Normal 25144-7) [facility]ed [id number] 08:09:01 Test Item Value Reference Range Interpretation Comments Glucose POC (test code = 43571145) 85 mg/dL 74-106 Lab Interpretation (test code = Normal 09921-7) [facility]ed [id number] 08:09:01 Test Item Value Reference Range Interpretation Comments Glucose POC (test code = 12471113) 85 mg/dL 74-106 Lab Interpretation (test code = Normal 05586-4) [facility] docked [id number] 08:09:01 Test Item Value Reference Range Interpretation Comments Glucose POC (test code = 78740666) 85 mg/dL 74-106 Lab Interpretation (test code = Normal 88882-8) [facility] [id number] 08:09:01 Test Item Value Reference Range Interpretation Comments Glucose POC (test code = 22734062) 85 mg/dL 74-106 Lab Interpretation (test code = Normal 92037-5) [facility] ORF1ab Resp Ql OLENA+bhfei8938-95-87 23:25:40 Test Item Value Reference Range Interpretation Comments Hospitalized? (test No code = 26204-0) ICU? (test code = No 44121-0) Symptomatic as No defined by CDC? (test code = 93456-8) Employed in No Healthcare? (test code = 34194-9) Resident in a No congregate care setting (including nursing homes, residential care for people with intellectual and developmental disabilities, psychiatric treatment facilities, group homes, board and care homes, homeless fpc, foster care or other): (test code = 28976-8) SARS-CoV-2 ORF1ab NOT DETECTED Not Detected INTERPRETA TION: No Resp Ql OLENA+probe detectable levels of (test code = SARS-CoV-2 06626-2) Coronavirus (COVID-19) were present in this patient's [...] SARS-CoV-2 mole cular diagnostic assa y utilizes Arch Support Maker Mediated Amplification ( TMA) technology to r apidly detect the SARS -CoV-2 (COVID-19) viru s from respiratory adriana ples. In accordance with\\XC2A0\\the FDA's guidance docume nt "Policy for Diagnostic Test s for Coronavirus Disease-2018 du [facility] the [facility] Emergency", ginger s test was developed, and its performance characteristics were verified by the [facility] molecular diagn ostics laboratory and is authorized for clinical diagno stic use. \\XC2A0\\Thi s laboratory is certified under the Clinical Labora tory Improvement Amendments (CLI A) as qualified to pe rform high complexity clinical labora tory testing. [facility] Lead [id number] 15:46:1012 LEAD EKG FOR [facility] Test Date: 3023-81-24Bjf Name: DORA JOSEPH Department: 5ECIPatient ID: [id number] Room: Gender: M Engineer: [id number]: 1970 Requested By: DARRION LOERA [place] Number: [id number] Lawson MD: Rene Patterson MeasurementsIntervals Koppel Rate: 61 P: 72PR: 152 QRS: 55QRSD: 106 T: 63QT: 398 QTc: 400 Interpretive StatementsSINUS RHYTHMPOSSIBLE RIGHT VENTRICULAR CONDUCTION DELAY [RSR (QR) IN V1/V2]Electronically Signed On 01-22-2022 8:30:45 CDT by Rene [place]John [place] [address] Lead [id number] 15:46:1012 LEAD EKG FOR [facility] Test Date: 4721-62-61Qpl Name: DORA JOSEPH Department: 5ECIPatient ID: [id number] Room: Gender: M Engineer: [id number]: 1970 Requested By: DARRION Cho Number: [id number] Reading MD: Rene Patterson MeasurementsIntervals Koppel Rate: 61 P: 72PR: 152 QRS: 55QRSD: 106 T: 63QT: 398 QTc: 400 Interpretive StatementsSINUS RHYTHMPOSSIBLE RIGHT VENTRICULAR CONDUCTION DELAY [RSR (QR) IN V1/V2]Electronically Signed On 01-22-2022 8:30:45 CDT by Rene Bimbasket12 Lead [id number] 15:46:1012 LEAD EKG FOR [facility] Test Date: 2382-26-56Tce Name: DORA JOSEPH Department: 5ECIPatient ID: [id number] Room: Gender: M Engineer: [id number]: 1970 Requested By: DARRION Cho Number: [id number] Reading MD: Rene Patterson MeasurementsIntervals Koppel Rate: 61 P: 72PR: 152 QRS: 55QRSD: 106 T: 63QT: 398 QTc: 400 Interpretive StatementsSINUS RHYTHMPOSSIBLE RIGHT VENTRI CULAR CONDUCTION DELAY [RSR (QR) IN V1/V2]Electronically Signed On 01-22-2022 8:30:45 CDT by Rene Bimbasket12 Lead [id number] 15:46:1012 LEAD EKG FOR [facility] Test Date: 7265-56-09Xni Name: DORA JOSEPH Department: 5ECIPatient ID: [id number] Room: Gender: M Engineer: [id number]: 1970 Requested By: DARRION Cho Number: [id number] Reading MD: Rene Patterson MeasurementsIntervals Koppel Rate: 61 P: 72PR:152 QRS: 55QRSD: 106 T: 63QT: 398 QTc: 400 Interpretive StatementsSINUS RHYTHMPOSSIBLE RIGHT VENTRICULAR CONDUCTION DELAY [RSR (QR) IN V1/V2]Electronically Signed On 01-22-2022 8:30:45 CDT by MEDNAX12 Lead [id number] 15:46:1012 LEAD EKG FOR [facility] Test Date: 2652-95-31Jdf Name: DORA JOSEPH Department: 5EPatient ID: [id number] Room: Gender: M Engineer: [id number]: 1970 Requested By: DARRION Cho Number: [id number] Reading MD: Rene Patterson MeasurementsIntervals Koppel Rate: 61 P: 72PR: 152 QRS: 55QRSD: 106 T: 63QT: 398 QTc: 400 Interpretive StatementsSINUS RHYTHMPOSSIBLE RIGHT VENTRICULAR CONDUCTION DELAY [RSR (QR) IN V1/V2]Electronically Signed On 01-22-2022 8:30:45 CDT by [facility] CollaborativeDebbyJodi V[place] [address] Lead [id number] 15:46:1012 LEAD EKG FOR [facility] Test Date: 1359-59-25Mtm Name: DORA JOSEPH Department: 5EPatient ID: [id number] Room: Gender: M Engineer: [id number]: 1970 Requested By: DARRION Cho Number: [id number] Reading MD: Rene Patterson MeasurementsIntervals Koppel Rate: 61 P: 72PR: 152 QRS: 55QRSD: 106 T: 63QT: 398 QTc: 400 Interpretive StatementsSINUS RHYTHMPOSSIBLE RIGHT VENTRICULAR CONDUCTION DELAY [RSR (QR) IN V1/V2]Electronically Signed On 01-22-2022 8:30:45 CDT by Rene The Mutual Fund StoreDebbyWescoal GroupCompaJohn Ville [address] Lead [id number] 15:46:1012 LEAD EKG FOR [facility] Test Date: 0879-36-70Yyy Name: DORA JOSEPH Department: 5ECIPatient ID: [id number] Room: Gender: M Engineer: [id number]: 1970 Requested By: DARRION Cho Number: [id number] Reading MD: Rene Patterson MeasurementsIntervals Koppel Rate: 61 P: 72PR: 152 QRS: 55QRSD: 106 T: 63QT: 398 QTc: 400 Interpretive StatementsSINUS RHYTHMPOSSIBLE RIGHT VENTRIC ULAR CONDUCTION DELAY [RSR (QR) IN V1/V2]Electronically Signed On 01-22-2022 8:30:45 CDT by Rene RacharisseanSMSHarris Criuip70 Lead [id number] 15:46:1012 LEAD EKG FOR [facility] Test Date: 1525-11-45Fzu Name: DORA JOSEPH Department: 5ECIPatient ID: [id number] Room: Gender: M Engineer: [id number]: 1970 Requested By: DARRION Cho Number: [id number] Reading MD: Rene Patterson MeasurementsIntervals Koppel Rate: 61 P: 72PR: 152 QRS: 55QRSD: 106 T: 63QT: 398 QTc: 400 Interpretive StatementsSINUS RHYTHMPOSSIBLE RIGHT VENTRICULAR CONDUCTION DELAY [RSR (QR) IN V1/V2]Electronically Signed On 01-22-2022 8:30:45 CDT by Rene Ardenris Srewcn01 Lead [id number] 15:46:1012 LEAD EKG FOR [facility] Test Date: 9335-76-35Int Name: DORA JOSEPH Department: 5ECIPatient ID: [id number] Room: Gender: M Engineer: [id number]: 1970 Requested By: DARRION Cho Number: [id number] Reading MD: Rene Patterson MeasurementsIntervals Koppel Rate: 61 P: 72PR : 152 QRS: 55QRSD: 106 T: 63QT: 398 QTc: 400 Interpretive StatementsSINUS RHYTHMPOSSIBLE RIGHT VENTRICULAR CONDUCTION DELAY [RSR (QR) IN V1/V2]Electronically Signed On 01-22-2022 8:30:45 CDT by Rene SadiMNComparis Wfgfdg37 Lead [id number] 15:46:1012 LEAD EKG FOR [facility] Test Date: 9942-48-10Vcc Name: DORA JOSEPH Department: 5ECIPatient ID: [id number] Room: Gender: M Engineer: [id number]: 1970 Requested By: DARRION Cho Number: [id number] Reading MD: Rene Patterson MeasurementsIntervals Koppel Rate: 61 P: 72PR: 152 QRS: 55QRSD: 106 T: 63QT: 398 QTc: 400 Interpretive StatementsSINUS RHYTHMPOSSIBLE RIGHT VENTRICULAR CONDUCTION DELAY [RSR (QR) IN V1/V2]Electronically Signed On 01-22-2022 8:30:45 CDT by Rene Valle Ejcqup07 Lead [id number] 15:46:1012 LEAD EKG FOR [facility] Test Date: 7746-24-20Jng Name: DORA JOSEPH Department: 5ECIPatient ID: [id number] Room: Gender: Engineer: [id number]: 1970 Requested By: DARRION Cho Number: [id number] Reading MD: Rene Patterson MeasurementsIntervals Koppel Rate: 61 P: 72PR: 152 QRS: 55QRSD: 106 T: 63QT: 398 QTc: 400 Interpretive StatementsSINUS RHYTHMPOSSIBLE RIGHT VENTR ICULAR CONDUCTION DELAY [RSR (QR) IN V1/V2]Electronically Signed On 01-22-2022 8:30:45 CDT by Rene AvitiaWescoal GroupMaged Admbzt19 Lead [id number] 15:46:1012 LEAD EKG FOR [facility] Test Date: 4468-01-00Osv Name: DORA JOSEPH Department: 5ECIPatient ID: [id number] Room: Gender: Engineer: [id number]: 1970 Requested By: DARRION Cho Number: [id number] Reading MD: Rene Patterson MeasurementsIntervals Koppel Rate: 61 P: 72PR: 152 QRS: 55QRSD: 106 T: 63QT: 398 QTc: 400 Interpretive StatementsSINUS RHYTHMPOSSIBLE RIGHT VENTRICULAR CONDUCTION DELAY [RSR (QR) IN V1/V2]Electronically Signed On 01-22-2022 8:30:45 CDT by Rene AvitiaWescoal GroupCompaOlympic [facility] Hospital12 Lead [id number] 15:46:1012 LEAD EKG FOR [facility] Test Date: 3377-83-23Ayd Name: DORA JOSEPH Department: 5ECIPatient ID: [id number] Room: Gender: M Engineer: [id number]: 1970 Requested By: DARRION Cho Number: [id number] Reading MD: Rene Patterson MeasurementsIntervals Koppel Rate: 61 P: 72P R: 152 QRS: 55QRSD: 106 T: 63QT: 398 QTc: 400 Interpretive StatementsSINUS RHYTHMPOSSIBLE RIGHT VENTRICULAR CONDUCTION DELAY [RSR (QR) IN V1/V2]Electronically Signed On 01-22-2022 8:30:45 CDT by Rene Valle Mjdesu73 Lead [id number] 15:46:1012 LEAD EKG FOR [facility] Test Date: 5129-56-11Zxp Name: DORA JOSEPH Department: 5ECIPatient ID: [id number] Room: Gender: M Engineer: [id number]: 1970 Requested By: DARRION Cho Number: [id number] Reading MD: Rene Patterson MeasurementsIntervals Koppel Rate: 61 P: 72PR: 152 QRS: 55QRSD: 106 T: 63QT: 398 QTc: 400 Interpretive StatementsSINUS RHYTHMPOSSIBLE RIGHT VENTRICULAR CONDUCTION DELAY [RSR (QR) IN V1/V2]Electronically Signed On 01-22-2022 8:30:45 CDT by Rene Valle Cliyjk98 Lead [id number] 15:46:1012 LEAD EKG FOR [facility] Test Date: 8042-80-43Gma Name: DORA JOSEPH Department: 5ECIPatient ID: [id number] Room: Gender: M Engineer: [id number]: 1970 Requested By: DARRION Cho Number: [id number] Reading MD: Rene Patterson MeasurementsIntervals Koppel Rate: 61 P: 72PR: 152 QRS: 55QRSD: 106 T: 63QT: 398 QTc: 400 Interpretive StatementsSINUS RHYTHMPOSSIBLE RIGHT VENTR ICULAR CONDUCTION DELAY [RSR (QR) IN V1/V2]Electronically Signed On 01-22-2022 8:30:45 CDT by [facility] Jkcsxn06 Lead [id number] 15:46:1012 LEAD EKG FOR [facility] Test Date: 9003-59-34Xnu Name: DORA JOSEPH Department: 5ECIPatient ID: [id number] Room: Gender: M Engineer: [id number]: 1970 Requested By: DARRION Cho Number: [id number] Reading MD: Rene Patterson MeasurementsIntervals Koppel Rate: 61 P: 72PR: 152 QRS: 55QRSD: 106 T: 63QT: 398 QTc: 400 Interpretive StatementsSINUS RHYTHMPOSSIBLE RIGHT VENTRICULAR CONDUCTION DELAY [RSR (QR) IN V1/V2]Electronically Signed On 01-22-2022 8:30:45 CDT by Rene Valle [facility] 1+2 Ab+HIV1 p24 Ag SerPl Ql [id number] 07:02:58 Test Item Value Reference Range Interpretation Comments HIV 1+2 Ab+HIV1 p24 Ag SerPl Ql IA NEGATIVE Negative (test code = 75845-8) [id number] 21:23:2512 LEAD EKG FOR [facility] Test Date: 8511-83-57Kfe Name: DORA JOSEPH Department: 5520Patient ID: [id number] Room: 1S81Awcdlw: M Engineer: : 1970 Requested By: KARIN Ryan Number: [id number] Reading MD: Chiara Calles MeasurementsIntervals Koppel Rate: 72 P: 90PR:157 QRS: 87QRSD: 105 T: 90QT: 360 QTc: 384 Interpretive StatementsSINUS RHYTHMPOSSIBLE RIGHT VENTRICULAR CONDUCTION DELAY [RSR (QR) IN V1/V2]EARLY REPOLARIZATION [ST ELEVATION WITH NORMALLY INFLECTED T- WAVE]Electronically Signed On 01-17-2022 13:02:30 CDT by Chiara EsquedaPaul [place] [id number] 21:23:2512 LEAD EKG FOR [facility] Test Date: 6178-76-23Oos Name: DORA JOSEPH Department: 5520Patient ID: [id number] Room: 1R60Buorto: M Engineer: : 1970 Requested By: JESSICA Ryan Number: [id number] Reading MD: Chiara Calles MeasurementsIntervals Koppel Rate: 72 P: 90PR: 157 QRS: 87QRSD: 105 T: 90QT: 360 QTc: 384 Interpretive StatementsSINUS RHYTHMPOSSIBLE RIGHT VENTRICULAR CONDUCTION DELAY [RSR (QR) IN V1/V2]EARLY REPOLARIZATION [ST ELEVATION WITH NORMALLY INFLECTEDT- WAVE]Electronically Signed On 01-17-2022 13:02:30 CDT by Chiara CoAdna PhotonicsAndrew [place] [address]SyynvvXHC9313-02-34 21:23:2512 LEAD EKG FOR [facility] Test Date: 1313-09-18Wlt Name: DORA PAEZRY Department: 5520Patient ID: [id number] Room: 9L74Nmsmri: M Engineer: : 1970 Requested By: KARIN BASSETT AOrder Number: [id number] Reading MD: Chiara Calles MeasurementsIntervals Koppel Rate: 72 P: 90PR:157 QRS: 87QRSD: 105 T: 90QT: 360 QTc: 384 Interpretive StatementsSINUS RHYTHMPOSSIBLE RIGHT VENTRICULAR CONDUCTION DELAY [RSR (QR) IN V1/V2]EARLY REPOLARIZATION [ST ELEVATION WITH NORMALLY INFLECTED T- WAVE]Electronically Signed On 01-17-2022 13:02:30 CDT by Chiara [employer]Fillmore WewfgqYAD0829-55-42 21:23:2512 LEAD EKG FOR [facility] Test Date: 1753-58-84Pfe Name: DORA DAYTON Department: 5520Patient ID: [id number] Room: 4M41Apljpg: M Engineer: : 1970 Requested By: KARIN BASSETT AOrder Number: [id number] Reading MD: Chiara Calles MeasurementsIntervals Koppel Rate: 72 P: 90PR: 157 QRS: 87QRSD: 105 T: 90QT: 360 QTc: 384 Interpretive StatementsSINUS RHYTHMPOSSIBLE RIGHT VENTRICULAR CONDUCTION DELAY [RSR (QR) IN V1/V2]EARLY REPOLARIZATION [ST ELEVATION WITH NORMALLY INFLECTED T- WAVE]Electronically Signed On 01-17-2022 13:02:30 CDT by [facility] PhotonicsNorth[facility] CenterVerastemRgehzwGJJ1638-86-85 21:23:2512 LEAD EKG FOR [facility] Test Date: 6047-71-02Cwq Name: DORA JOSEPH Department: 5520Patient ID: [id number] Room: 8L80Cbcfae: M Engineer: : 1970 Requested By: KARIN BASSETT AOrder Number: [id number] Reading MD: Chiara Calles MeasurementsIntervals Koppel Rate: 72 P: 90PR:157 QRS: 87QRSD: 105 T: 90QT: 360 QTc: 384 Interpretive StatementsSINUS RHYTHMPOSSIBLE RIGHT VENTRICULAR CONDUCTION DELAY [RSR (QR) IN V1/V2]EARLY REPOLARIZATION [ST ELEVATION WITH NORMALLY INFLECTED T- WAVE]Electronically Signed On 01-17-2022 13:02:30 CDT by [facility]TravelSharkEKG2022-05-26 21:23:2512 LEAD EKG FOR [facility] Test Date: 8310-49-59Ovp Name: DORA PAEZRY Department: 5520Patient ID: [id number] Room: 1C97Mmdynw: M Engineer: : 1970 Requested By: KARIN BASSETT AOrder Number: [id number] Reading MD: Chiara Calles MeasurementsIntervals Koppel Rate: 72 P: 90PR: 157 QRS: 87QRSD: 105 T: 90QT: 360 QTc: 384 Interpretive StatementsSINUS RHYTHMPOSSIBLE RIGHT VENTRICULAR CONDUCTION DELAY [RSR (QR) IN V1/V2]EARLY REPOLARIZATION [ST ELEVATION WITH NORMALLY INFLECTED T-W AVE]Electronically Signed On 01-17-2022 13:02:30 CDT by Buck [facility] BB[facility] SaloonEKG2022-05-26 21:23:2512 LEAD EKG FOR [facility] Test Date: 9351-26-19Mix Name: DORA PAEZRY Department: 5520Patient ID: [id number] Room: 5T21Jxacyi: M Engineer: : 1970 Requested By: KARIN BASSETT AOrder Number: [id number] Reading MD: Chiara Calles MeasurementsIntervals Koppel Rate: 72 P: 90PR:157 QRS: 87QRSD: 105 T: 90QT: 360 QTc: 384 Interpretive StatementsSINUS RHYTHMPOSSIBLE RIGHT VENTRICULAR CONDUCTION DELAY [RSR (QR) IN V1/V2]EARLY REPOLARIZATION [ST ELEVATION WITH NORMALLY INFLECTED T- WAVE]Electronically Signed On 01-17-2022 13:02:30 CDT by [facility] [place] [address]YtttxbOSO2293-32-90 21:23:2512 LEAD EKG FOR [facility] Test Date: [id number] Name: DORA JOSEPH Department: 5520Patient ID: [id number] Room: 8X72Gjpjro: M Engineer: : 1970 Requested By: KARIN BASSETT AOrder Number: [id number] Reading MD: Chiara Calles MeasurementsIntervals Koppel Rate: 72 P: 90PR: 157 QRS: 87QRSD: 105 T: 90QT: 360 QTc: 384 Interpretive StatementsSINUS RHYTHMPOSSIBLE RIGHT VENTRICULAR CONDUCTION DELAY [RSR (QR) IN V1/V2]EARLY REPOLARIZATION [ST ELEVATION WITH NORMALLY INFLECTED T- WAVE]Electronically Signed On 01-17-2022 13:02:30 CDT by [facility] [employer] [address]UqwjudPFR5989-23-88 21:23:2512 LEAD EKG FOR [facility] Test Date: 3769-76-64Mhd Name: DORA JOSEPH Department: 5520Patient ID: [id number] Room: 9Q25Cpfvdp: M Engineer: : 1970 Requested By: KARIN BASSETT AOrder Number: [id number] Reading MD: Chiara Calles MeasurementsIntervals Koppel Rate: 72 P: 90PR:157 QRS: 87QRSD: 105 T: 90QT: 360 QTc: 384 Interpretive StatementsSINUS RHYTHMPOSSIBLE RIGHT VENTRICULAR CONDUCTION DELAY [RSR (QR) IN V1/V2]EARLY REPOLARIZATION [ST ELEVATION WITH NORMALLY INFLECTED T- WAVE]Electronically Signed On 01-17-2022 13:02:30 CDT by [facility] [employer] [address]KepbydQIF3709-00-93 21:23:2512 LEAD EKG FOR [facility] Test Date: 6789-61-88Bpc Name: DORA PAEZRY Department: 5520Patient ID: [id number] Room: 9L70Ffdlcf: M Engineer: : 1970 Requested By: KARIN BASSETT AOrder Number: [id number] Reading MD: Chiara Calles MeasurementsIntervals Koppel Rate: 72 P: 90PR: 157 QRS: 87QRSD: 105 T: 90QT: 360 QTc: 384 Interpretive StatementsSINUS RHYTHMPOSSIBLE RIGHT VENTRICULAR CONDUCTION DELAY [RSR (QR) IN V1/V2]EARLY REPOLARIZATION [ST ELEVATION WITH NORMALLY INFLECTED T-W AVE]Electronically Signed On 01-17-2022 13:02:30 CDT by [facility]healthKnozenAndrew [place] [address]MdylmcBKQ5622-77-05 21:23:2512 LEAD EKG FOR [facility] Test Date: 5110-25-03Bnj Name: DORA JOSEPH Department: 5520Patient ID: [id number] Room: 9B20Kzdwap: Engineer: : 1970 Requested By: KARIN BASSETT AOrder Number: [id number] Reading MD: Chiara Calles MeasurementsIntervals Koppel Rate: 72 P: 90PR: 157 QRS: 87QRSD: 105 T: 90QT: 360 QTc: 384 Interpretive StatementsSINUS RHYTHMPOSSIBLE RIGHT VENTRICULAR CONDUCTION DELAY [RSR (QR) IN V1/V2]EARLY REPOLARIZATION [ST ELEVATION WITH NORMALLY INFLECTED T- WAVE]Electronically Signed On 01-17-2022 13:02:30 CDT by [facility]healthK[facility]zenAndrew [place] [address]SlyrusWTK9196-63-52 21:23:2512 LEAD EKG FOR [facility] Test Date: 4579-49-74Shq Name: DORA JOSEPH Department: 5520Patient ID: [id number] Room: 7C37Siyakp: M Engineer: : 1970 Requested By: KARIN BASSETT AOrder Number: [id number] Reading MD: Chiara Calles MeasurementsIntervals Koppel Rate: 72 P: 90PR: 157 QRS: 87QRSD: 105 T: 90QT: 360 QTc: 384 Interpretive StatementsSINUS RHYTHMPOSSIBLE RIGHT VENTRICULAR CONDUCTION DELAY [RSR (QR) IN V1/V2]EARLY REPOLARIZATION [ST ELEVATION WITH NORMALLY INFLECTED T- WAVE]Electronically Signed On 01-17-2022 13:02:30 CDT by [facility] CenterShopsyAndrew [facility] [address]YlpdywWJG1602-66-83 21:23:2512 LEAD EKG FOR [facility] Test Date: 2513-80-40Zwk Name: DORA JOSEPH Department: 5520Patient ID: [id number] Room: 0I01Klbagp: M Engineer: : 1970 Requested By: JESSICA AOrder Number: [id number] Reading MD: Chiara Calles MeasurementsIntervals Koppel Rate: 72 P: 90PR:157 QRS: 87QRSD: 105 T: 90QT: 360 QTc: 384 Interpretive StatementsSINUS RHYTHMPOSSIBLE RIGHT VENTRICULAR CONDUCTION DELAY [RSR (QR) IN V1/V2]EARLY REPOLARIZATION [ST ELEVATION WITH NORMALLY INFLECTED T- WAVE]Electronically Signed On 01-17-2022 13:02:30 CDT by [facility] [employer] [employer] [address]PobgdyMNR4611-30-40 21:23:2512 LEAD EKG FOR [facility] Test Date: 6609-37-03Rlh Name: DORA JOSEPH Department: 5520Patient ID: [id number] Room: 4U51Vozovm: M Engineer: : 1970 Requested By: KARIN BASSETT AOrder Number: [id number] Reading MD: Chiara Calles MeasurementsIntervals Koppel Rate: 72 P: 90PR: 157 QRS: 87QRSD: 105 T: 90QT: 360 QTc: 384 Interpretive StatementsSINUS RHYTHMPOSSIBLE RIGHT VENTRICULAR CONDUCTION DELAY [RSR (QR) IN V1/V2]EARLY REPOLARIZATION [ST ELEVATION WITH NORMALLY INFLECTEDT- WAVE]Electronically Signed On 01-17-2022 13:02:30 CDT by [facility] [employer] [address]IxurroNON0686-00-73 21:23:2512 LEAD EKG FOR [facility] Test Date: 0490-32-33Qga Name: DORA JOSEPH Department: 5520Patient ID: [id number] Room: 2H27Gaasmr: M Engineer: : 1970 Requested By: KARIN BASSETT AOrder Number: [id number] Reading MD: Chiara Calles MeasurementsIntervals Koppel Rate: 72 P: 90PR: 157 QRS: 87QRSD: 105 T: 90QT: 360 QTc: 384 Interpretive StatementsSINUS RHYTHMPOSSIBLE RIGHT VENTRICULAR CONDUCTION DELAY [RSR (QR) IN V1/V2]EARLY REPOLARIZATION [ST ELEVATION WITH NORMALLY INFLECTED T-W AVE]Electronically Signed On 01-17-2022 13:02:30 CDT by Chiara ISC8bakariKeen SystemsIjyqqwWZH9155-25-84 21:23:2512 LEAD EKG FOR [facility] Test Date: 0735-91-65Ubf Name: DORA JOSEPH Department: 5520Patient ID: [id number] Room: 1C46Rkeghj: M Engineer: : 1970 Requested By: KARIN BASSETT AOrder Number: [id number] Reading MD: Chiara Calles MeasurementsIntervals Koppel Rate: 72 P: 90PR:157 QRS: 87QRSD: 105 T: 90QT: 360 QTc: 384 Interpretive StatementsSINUS RHYTHMPOSSIBLE RIGHT VENTRICULAR CONDUCTION DELAY [RSR (QR) IN V1/V2]EARLY REPOLARIZATION [ST ELEVATION WITH NORMALLY INFLECTED T- WAVE]Electronically Signed On 01-17-2022 13:02:30 CDT by Buck Nekkid BBQ and SaloonSARS-CoV-2 ORF1ab Resp Ql OLENA+pyrze1936-47-08 19:57:49 Test Item Value Reference Range Interpretation Comments Hospitalized? (test No code = 07662-8) ICU? (test code = No 39206-8) Symptomatic as No defined by CDC? (test code = 46142-0) Employed in No Healthcare? (test code = 83150-5) Resident in a No congregate care setting (including nursing homes, residential care for people with intellectual and developmental disabilities, psychiatric treatment facilities, group homes, board and care homes, homeless fpc, foster care or other): (test code = 12412-8) SARS-CoV-2 ORF1ab NOT DETECTED Not Detected INTERPRETA TION: No Resp Ql OLENA+probe detectable levels of (test code = SARS-CoV-2 84230-3) Coronavirus (COVID-19) were present in this patient's [...] SARS-CoV-2 mole cular diagnostic assa y utilizes Arch [employer] Maker Mediated Amplification ( TMA) technology to r apidly detect the SARS -CoV-2 (COVID-19) viru s from respiratory adriana ples. In accordance with\\XC2A0\\the FDA's guidance docume nt "Policy for Diagnostic Test s for Coronavirus Disease-2019 du ring the Public Heal th Emergency", ginger s test was developed, and its performance characteristics were verified by the [facility] molecular diagn ostics laboratory and is authorized for clinical diagno stic use. \\XC2A0\\Thi s laboratory is certified under the Clinical Labora tory Improvement Amendments (CLI A) as qualified to pe rform high complexity clinical labora tory testing. [facility] CREATININE POC docked ohrbrt2126-00-38 13:57:55 Test Item Value Reference Range Interpretation Comments Creatinine POC (test 2.4 mg/dL 0.6-1.3 H Physici an Notified code = 76134390) eGFR (test code = 30 See_Comment L [Automate d message] 54901741) The system ic h generated this result transmit dain reference range : >=90 mL/min/1.7 3 m2. The reference r meredith was not used to interpret this result as normal/abnormal . eGFR If Am (test 35 See_Comment L [A utomated message] code = 15056972) The system which generated this result transmit dain reference range : >=90 mL/min/1.7 3 m2. The reference r meredith was not used to interpret this result as normal/abnormal . Lab Interpretation (test Abnormal code = 58343-1) [facility] CREATININE POC docked [id number] 13:57:55 Test Item Value Reference Range Interpretation Comments Creatinine POC (test 2.4 mg/dL 0.6-1.3 H Physici an Notified code = 09315777) eGFR If non- Am 30 See_Comment L [Aut omated message] (test code = 15078331) The s ystem which generated this result transmit dain reference range : >=90 mL/min/1.7 3 m2. The reference r meredith was not used to interpret this result as normal/abnormal . eGFR If Am (test 35 See_Comment L [A utomated message] code = 88008322) The system which generated this result transmit dain reference range : >=90 mL/min/1.7 3 m2. The reference r meredith was not used to interpret this result as normal/abnormal . Lab Interpretation (test Abnormal code = 93204-5) [facility] CREATININE POC docked [id number] 13:57:55 Test Item Value Reference Range Interpretation Comments Creatinine POC (test 2.4 mg/dL 0.6-1.3 H Physici an Notified code = 02781463) eGFR If non- Am 30 See_Comment L [Aut omated message] (test code = 11100596) The s ystem which generated this result transmit dain reference range : >=90 mL/min/1.7 3 m2. The reference r meredith was not used to interpret this result as normal/abnormal . eGFR If Am (test 35 See_Comment L [A utomated message] code = 90743135) The system which generated this result transmit dain reference range : >=90 mL/min/1.7 3 m2. The reference r meredith was not used to interpret this result as normal/abnormal . Lab Interpretation (test Abnormal code = 75451-5) [facility] CREATININE POC docked [id number] 13:57:55 Test Item Value Reference Range Interpretation Comments Creatinine POC (test 2.4 mg/dL 0.6-1.3 H Physici an Notified code = 62141792) eGFR If non- Am 30 See_Comment L [Aut omated message] (test code = 05389038) The s ystem which generated this result transmit dain reference range : >=90 mL/min/1.7 3 m2. The reference r meredith was not used to interpret this result as normal/abnormal . eGFR If Am (test 35 See_Comment L [A utomated message] code = 86775087) The system which generated this result transmit dain reference range : >=90 mL/min/1.7 3 m2. The reference r meredith was not used to interpret this result as normal/abnormal . Lab Interpretation (test Abnormal code = 75212-4) [facility] CREATININE POC docked [id number] 13:57:55 Test Item Value Reference Range Interpretation Comments Creatinine POC (test 2.4 mg/dL 0.6-1.3 H Physici an Notified code = 41816441) eGFR If non- Am 30 See_Comment L [Aut omated message] (test code = 96558569) The s ystem which generated this result transmit dain reference range : >=90 mL/min/1.7 3 m2. The reference r meredith was not used to interpret this result as normal/abnormal . eGFR If Am (test 35 See_Comment L [A utomated message] code = 70964029) The system which generated this result transmit dain reference range : >=90 mL/min/1.7 3 m2. The reference r meredith was not used to interpret this result as normal/abnormal . Lab Interpretation (test Abnormal code = 20566-0) [facility] CREATININE POC docked [id number] 13:57:55 Test Item Value Reference Range Interpretation Comments Creatinine POC (test 2.4 mg/dL 0.6-1.3 H Physici an Notified code = 82077652) eGFR If non- Am 30 See_Comment L [Aut omated message] (test code = 06785333) The s ystem which generated this result transmit dain reference range : >=90 mL/min/1.7 3 m2. The reference r meredith was not used to interpret this result as normal/abnormal . eGFR If Am (test 35 See_Comment L [A utomated message] code = 72774007) The system which generated this result transmit dain reference range : >=90 mL/min/1.7 3 m2. The reference r meredith was not used to interpret this result as normal/abnormal . Lab Interpretation (test Abnormal code = 34416-4) [facility] CREATININE POC docked [id number] 13:57:55 Test Item Value Reference Range Interpretation Comments Creatinine POC (test 2.4 mg/dL 0.6-1.3 H Physici an Notified code = 22533169) eGFR If non- Am 30 See_Comment L [Aut omated message] (test code = 70317983) The s ystem which generated this result transmit dain reference range : >=90 mL/min/1.7 3 m2. The reference r meredith was not used to interpret this result as normal/abnormal . eGFR If Am (test 35 See_Comment L [A utomated message] code = 13491714) The system which generated this result transmit dain reference range : >=90 mL/min/1.7 3 m2. The reference r meredith was not used to interpret this result as normal/abnormal . Lab Interpretation (test Abnormal code = 22312-5) [facility] CREATININE POC docked [id number] 13:57:55 Test Item Value Reference Range Interpretation Comments Creatinine POC (test 2.4 mg/dL 0.6-1.3 H Physici an Notified code = 33572784) eGFR If non- Am 30 See_Comment L [Aut omated message] (test code = 35769652) The s ystem which generated this result transmit dain reference range : >=90 mL/min/1.7 3 m2. The reference r meredith was not used to interpret this result as normal/abnormal . eGFR If Am (test 35 See_Comment L [A utomated message] code = 24686841) The system which generated this result transmit dain reference range : >=90 mL/min/1.7 3 m2. The reference r meredith was not used to interpret this result as normal/abnormal . Lab Interpretation (test Abnormal code = 20373-6) [facility] [id number] 13:57:55 Test Item Value Reference Range Interpretation Comments Creatinine POC (test 2.4 mg/dL 0.6-1.3 H Physici an Notified code = 62106535) eGFR If non- Am 30 See_Comment L [Aut omated message] (test code = 93578756) The s ystem which generated this result transmit dain reference range : >=90 mL/min/1.7 3 m2. The reference r meredith was not used to interpret this result as normal/abnormal . eGFR If Am (test 35 See_Comment L [A utomated message] code = 44539823) The system which generated this result transmit dain reference range : >=90 mL/min/1.7 3 m2. The reference r meredith was not used to interpret this result as normal/abnormal . Lab Interpretation (test Abnormal code = 47103-1) [facility] CREATININE POC docked [id number] 13:57:55 Test Item Value Reference Range Interpretation Comments Creatinine POC (test 2.4 mg/dL 0.6-1.3 H Physici an Notified code = 10535018) eGFR If non- Am 30 See_Comment L [Aut omated message] (test code = 67551880) The s ystem which generated this result transmit dain reference range : >=90 mL/min/1.7 3 m2. The reference r meredith was not used to interpret this result as normal/abnormal . eGFR If Am (test 35 See_Comment L [A utomated message] code = 83764400) The system which generated this result transmit dain reference range : >=90 mL/min/1.7 3 m2. The reference r meredith was not used to interpret this result as normal/abnormal . Lab Interpretation (test Abnormal code = 69659-7) [facility] CREATININE POC docked [id number] 13:57:55 Test Item Value Reference Range Interpretation Comments Creatinine POC (test 2.4 mg/dL 0.6-1.3 H Physici an Notified code = 47230363) eGFR If non- Am 30 See_Comment L [Aut omated message] (test code = 93781903) The s ystem which generated this result transmit dain reference range : >=90 mL/min/1.7 3 m2. The reference r meredith was not used to interpret this result as normal/abnormal . eGFR If Am (test 35 See_Comment L [A utomated message] code = 73906129) The system which generated this result transmit dain reference range : >=90 mL/min/1.7 3 m2. The reference r meredith was not used to interpret this result as normal/abnormal . Lab Interpretation (test Abnormal code = 55092-5) [facility] CREATININE POC docked [id number] 13:57:55 Test Item Value Reference Range Interpretation Comments Creatinine POC (test 2.4 mg/dL 0.6-1.3 H Physici an Notified code = 99881805) eGFR If non- Am 30 See_Comment L [Aut omated message] (test code = 67139066) The s ystem which generated this result transmit dain reference range : >=90 mL/min/1.7 3 m2. The reference r meredith was not used to interpret this result as normal/abnormal . eGFR If Am (test 35 See_Comment L [A utomated message] code = 80695880) The system which generated this result transmit dain reference range : >=90 mL/min/1.7 3 m2. The reference r meredith was not used to interpret this result as normal/abnormal . Lab Interpretation (test Abnormal code = 89007-2) [facility] CREATININE POC docked [id number] 13:57:55 Test Item Value Reference Range Interpretation Comments Creatinine POC (test 2.4 mg/dL 0.6-1.3 H Physici an Notified code = 73520820) eGFR If non- Am 30 See_Comment L [Aut omated message] (test code = 58781702) The s ystem which generated this result transmit dain reference range : >=90 mL/min/1.7 3 m2. The reference r meredith was not used to interpret this result as normal/abnormal . eGFR If Am (test 35 See_Comment L [A utomated message] code = 65791144) The system which generated this result transmit dain reference range : >=90 mL/min/1.7 3 m2. The reference r meredith was not used to interpret this result as normal/abnormal . Lab Interpretation (test Abnormal code = 73321-4) [facility] CREATININE POC docked [id number] 13:57:55 Test Item Value Reference Range Interpretation Comments Creatinine POC (test 2.4 mg/dL 0.6-1.3 H Physici an Notified code = 95654983) eGFR If non- Am 30 See_Comment L [Aut omated message] (test code = 84078019) The s ystem which generated this result transmit dain reference range : >=90 mL/min/1.7 3 m2. The reference r meredith was not used to interpret this result as normal/abnormal . eGFR If Am (test 35 See_Comment L [A utomated message] code = 20701444) The system which generated this result transmit dain reference range : >=90 mL/min/1.7 3 m2. The reference r meredith was not used to interpret this result as normal/abnormal . Lab Interpretation (test Abnormal code = 77051-3) [facility] CREATININE POC docked [id number] 13:57:55 Test Item Value Reference Range Interpretation Comments Creatinine POC (test 2.4 mg/dL 0.6-1.3 H Physici an Notified code = 90551810) eGFR If non- Am 30 See_Comment L [Aut omated message] (test code = 55473096) The s ystem which generated this result transmit dain reference range : >=90 mL/min/1.7 3 m2. The reference r meredith was not used to interpret this result as normal/abnormal . eGFR If Am (test 35 See_Comment L [A utomated message] code = 04387916) The system which generated this result transmit dain reference range : >=90 mL/min/1.7 3 m2. The reference r meredith was not used to interpret this result as normal/abnormal . Lab Interpretation (test Abnormal code = 62439-8) [facility] CREATININE POC docked [id number] 13:57:55 Test Item Value Reference Range Interpretation Comments Creatinine POC (test 2.4 mg/dL 0.6-1.3 H Physici an Notified code = 12545398) eGFR If non- Am 30 See_Comment L [Aut omated message] (test code = 41703462) The s ystem which generated this result transmit dain reference range : >=90 mL/min/1.7 3 m2. The reference r meredith was not used to interpret this result as normal/abnormal . eGFR If Am (test 35 See_Comment L [A utomated message] code = 83566835) The system which generated this result transmit dain reference range : >=90 mL/min/1.7 3 m2. The reference r meredith was not used to interpret this result as normal/abnormal . Lab Interpretation (test Abnormal code = 81092-6) [facility] POC docked [id number] 13:48:46 Test Item Value Reference Range Interpretation Comments Sodium POC (test code = 126 mmol/L 136-145 L 11085433) Potassium POC (test code 4.4 mmol/L 3.5-5.1 = 70528113) Chloride POC (test code 100 mmol/L 98-107 = 87763995) TCO2 POC (test code = 17 mmol/L 21-32 L Physic aylin Notified 24789281) Urea Nitrogen POC (test 36 mg/dL 7-18 H code = 64777406) Glucose POC (test code = 114 mg/dL 74-106 H 85876507) Hemoglobin POC (test 11.9 g/dL 12-16 L code = 90400007) Hematocrit POC (test 35.0 % 37.0-47.0 L code = 82764896) Lab Interpretation (test Abnormal code = 35447-6) [facility] POC docked [id number] 13:48:46 Test Item Value Reference Range Interpretation Comments Sodium POC (test code = 126 mmol/L 136-145 L 22321513) Potassium POC (test code 4.4 mmol/L 3.5-5.1 = 14045113) Chloride POC (test code 100 mmol/L 98-107 = 30405573) TCO2 POC (test code = 17 mmol/L 21-32 L Physic aylin Notified 32154408) Urea Nitrogen POC (test 36 mg/dL 7-18 H code = 01861866) Glucose POC (test code = 114 mg/dL 74-106 H 26438790) Hemoglobin POC (test 11.9 g/dL 12-16 L code = 58278549) Hematocrit POC (test 35.0 % 37.0-47.0 L code = 53805434) Lab Interpretation (test Abnormal code = 47228-6) [facility] POC docked kprtsk7332-89-36 13:48:46 Test Item Value Reference Range Interpretation Comments Sodium POC (test code = 126 mmol/L 136-145 L 87493922) Potassium POC (test code 4.4 mmol/L 3.5-5.1 = 82191329) Chloride POC (test code 100 mmol/L 98-107 = 02665610) TCO2 POC (test code = 17 mmol/L 21-32 L Physic aylin Notified 39270822) Urea Nitrogen POC (test 36 mg/dL 7-18 H code = 97661853) Glucose POC (test code = 114 mg/dL 74-106 H 47932153) Hemoglobin POC (test 11.9 g/dL 12-16 L code = 41974437) Hematocrit POC (test 35.0 % 37.0-47.0 L code = 09676519) Lab Interpretation (test Abnormal code = 07775-9) [facility] BMP POC docked harbge6511-21-70 13:48:46 Test Item Value Reference Range Interpretation Comments Sodium POC (test code = 126 mmol/L 136-145 L 54858462) Potassium POC (test code 4.4 mmol/L 3.5-5.1 = 22315763) Chloride POC (test code 100 mmol/L 98-107 = [id number]) TCO2 POC (test code = 17 mmol/L 21-32 L Physic aylin Notified 64873409) Urea Nitrogen POC (test 36 mg/dL 7-18 H code = 51542371) Glucose POC (test code = 114 mg/dL 74-106 H 53425037) Hemoglobin POC (test 11.9 g/dL 12-16 L code = 79996778) Hematocrit POC (test 35.0 % 37.0-47.0 L code = 10323009) Lab Interpretation (test Abnormal code = 89083-3) [facility] BMP POC docked [id number] 13:48:46 Test Item Value Reference Range Interpretation Comments Sodium POC (test code = 126 mmol/L 136-145 L 60686207) Potassium POC (test code 4.4 mmol/L 3.5-5.1 = 66402088) Chloride POC (test code 100 mmol/L 98-107 = 62092872) TCO2 POC (test code = 17 mmol/L 21-32 L Physic aylin Notified 18698016) Urea Nitrogen POC (test 36 mg/dL 7-18 H code = 16240753) Glucose POC (test code = 114 mg/dL 74-106 H 23871472) Hemoglobin POC (test 11.9 g/dL 12-16 L code = 68095950) Hematocrit POC (test 35.0 % 37.0-47.0 L code = 04128833) Lab Interpretation (test Abnormal code = 30240-9) [facility] POC docked [id number] 13:48:46 Test Item Value Reference Range Interpretation Comments Sodium POC (test code = 126 mmol/L 136-145 L 57565661) Potassium POC (test code 4.4 mmol/L 3.5-5.1 = 33562398) Chloride POC (test code 100 mmol/L 98-107 = 31047697) TCO2 POC (test code = 17 mmol/L 21-32 L Physic aylin Notified 56903954) Urea Nitrogen POC (test 36 mg/dL 7-18 H code = 46483509) Glucose POC (test code = 114 mg/dL 74-106 H 23079489) Hemoglobin POC (test 11.9 g/dL 12-16 L code = 67009088) Hematocrit POC (test 35.0 % 37.0-47.0 L code = 48879904) Lab Interpretation (test Abnormal code = 57829-9) [facility] POC docked [id number] 13:48:46 Test Item Value Reference Range Interpretation Comments Sodium POC (test code = 126 mmol/L 136-145 L 30465410) Potassium POC (test code 4.4 mmol/L 3.5-5.1 = 00806811) Chloride POC (test code 100 mmol/L 98-107 = 92893148) TCO2 POC (test code = 17 mmol/L 21-32 L Physic aylin Notified 55833071) Urea Nitrogen POC (test 36 mg/dL 7-18 H code = 26491080) Glucose POC (test code = 114 mg/dL 74-106 H 87976985) Hemoglobin POC (test 11.9 g/dL 12-16 L code = 95075599) Hematocrit POC (test 35.0 % 37.0-47.0 L code = 43254901) Lab Interpretation (test Abnormal code = 68595-1) [facility] POC docked [id number] 13:48:46 Test Item Value Reference Range Interpretation Comments Sodium POC (test code = 126 mmol/L 136-145 L 68074044) Potassium POC (test code 4.4 mmol/L 3.5-5.1 = 69665611) Chloride POC (test code 100 mmol/L 98-107 = 09928815) TCO2 POC (test code = 17 mmol/L 21-32 L Physic aylin Notified 37277573) Urea Nitrogen POC (test 36 mg/dL 7-18 H code = 38746945) Glucose POC (test code = 114 mg/dL 74-106 H 34434930) Hemoglobin POC (test 11.9 g/dL 12-16 L code = 63965661) Hematocrit POC (test 35.0 % 37.0-47.0 L code = 91339868) Lab Interpretation (test Abnormal code = 96711-2) [facility] POC docked [id number] 13:48:46 Test Item Value Reference Range Interpretation Comments Sodium POC (test code = 126 mmol/L 136-145 L 99765548) Potassium POC (test code 4.4 mmol/L 3.5-5.1 = 85432936) Chloride POC (test code 100 mmol/L 98-107 = 98322176) TCO2 POC (test code = 17 mmol/L 21-32 L Physic aylin Notified 41447608) Urea Nitrogen POC (test 36 mg/dL 7-18 H code = 89682781) Glucose POC (test code = 114 mg/dL 74-106 H 26843926) Hemoglobin POC (test 11.9 g/dL 12-16 L code = 96378284) Hematocrit POC (test 35.0 % 37.0-47.0 L code = 68032364) Lab Interpretation (test Abnormal code = 95319-5) [facility] BMP POC docked [id number] 13:48:46 Test Item Value Reference Range Interpretation Comments Sodium POC (test code = 126 mmol/L 136-145 L 66418457) Potassium POC (test code 4.4 mmol/L 3.5-5.1 = 98466997) Chloride POC (test code 100 mmol/L 98-107 = 43662502) TCO2 POC (test code = 17 mmol/L 21-32 L Physic aylin Notified 43225512) Urea Nitrogen POC (test 36 mg/dL 7-18 H code = 28418958) Glucose POC (test code = 114 mg/dL 74-106 H 68087482) Hemoglobin POC (test 11.9 g/dL 12-16 L code = 07844309) Hematocrit POC (test 35.0 % 37.0-47.0 L code = 93983520) Lab Interpretation (test Abnormal code = 18852-9) [facility] POC docked [id number] 13:48:46 Test Item Value Reference Range Interpretation Comments Sodium POC (test code = 126 mmol/L 136-145 L 43686220) Potassium POC (test code 4.4 mmol/L 3.5-5.1 = 96728439) Chloride POC (test code 100 mmol/L 98-107 = 35241612) TCO2 POC (test code = 17 mmol/L 21-32 L Physic aylin Notified 46103982) Urea Nitrogen POC (test 36 mg/dL 7-18 H code = 49720316) Glucose POC (test code = 114 mg/dL 74-106 H 48006696) Hemoglobin POC (test 11.9 g/dL 12-16 L code = 91498978) Hematocrit POC (test 35.0 % 37.0-47.0 L code = 86484932) Lab Interpretation (test Abnormal code = 67342-2) [facility] POC docked [id number] 13:48:46 Test Item Value Reference Range Interpretation Comments Sodium POC (test code = 126 mmol/L 136-145 L 92219772) Potassium POC (test code 4.4 mmol/L 3.5-5.1 = 26856289) Chloride POC (test code 100 mmol/L 98-107 = 11033020) TCO2 POC (test code = 17 mmol/L 21-32 L Physic aylin Notified 07054550) Urea Nitrogen POC (test 36 mg/dL 7-18 H code = 58344482) Glucose POC (test code = 114 mg/dL 74-106 H 17403416) Hemoglobin POC (test 11.9 g/dL 12-16 L code = 59450739) Hematocrit POC (test 35.0 % 37.0-47.0 L code = 61276025) Lab Interpretation (test Abnormal code = 97456-6) [facility] POC docked [id number] 13:48:46 Test Item Value Reference Range Interpretation Comments Sodium POC (test code = 126 mmol/L 136-145 L 85923554) Potassium POC (test code 4.4 mmol/L 3.5-5.1 = 15512835) Chloride POC (test code 100 mmol/L 98-107 = 67378824) TCO2 POC (test code = 17 mmol/L 21-32 L Physic aylin Notified 04787026) Urea Nitrogen POC (test 36 mg/dL 7-18 H code = 27538282) Glucose POC (test code = 114 mg/dL 74-106 H 90156231) Hemoglobin POC (test 11.9 g/dL 12-16 L code = 39914775) Hematocrit POC (test 35.0 % 37.0-47.0 L code = 39653508) Lab Interpretation (test Abnormal code = 55014-5) [facility] POC docked [id number] 13:48:46 Test Item Value Reference Range Interpretation Comments Sodium POC (test code = 126 mmol/L 136-145 L 92704418) Potassium POC (test code 4.4 mmol/L 3.5-5.1 = 09614909) Chloride POC (test code 100 mmol/L 98-107 = 15551695) TCO2 POC (test code = 17 mmol/L 21-32 L Physic aylin Notified 57504233) Urea Nitrogen POC (test 36 mg/dL 7-18 H code = 70427698) Glucose POC (test code = 114 mg/dL 74-106 H 04638952) Hemoglobin POC (test 11.9 g/dL 12-16 L code = 95338336) Hematocrit POC (test 35.0 % 37.0-47.0 L code = 86021933) Lab Interpretation (test Abnormal code = 09991-6) [facility] POC docked [id number] 13:48:46 Test Item Value Reference Range Interpretation Comments Sodium POC (test code = 126 mmol/L 136-145 L 58232654) Potassium POC (test code 4.4 mmol/L 3.5-5.1 = 27153375) Chloride POC (test code 100 mmol/L 98-107 = 67660722) TCO2 POC (test code = 17 mmol/L 21-32 L Physic aylin Notified 46181462) Urea Nitrogen POC (test 36 mg/dL 7-18 H code = 61863794) Glucose POC (test code = 114 mg/dL 74-106 H 69301598) Hemoglobin POC (test 11.9 g/dL 12-16 L code = 73325833) Hematocrit POC (test 35.0 % 37.0-47.0 L code = 16555040) Lab Interpretation (test Abnormal code = 86256-2) [facility] BMP POC docked [id number] 13:48:46 Test Item Value Reference Range Interpretation Comments Sodium POC (test code = 126 mmol/L 136-145 L 14689589) Potassium POC (test code 4.4 mmol/L 3.5-5.1 = 52650237) Chloride POC (test code 100 mmol/L 98-107 = 67307772) TCO2 POC (test code = 17 mmol/L 21-32 L Physic aylin Notified 17105532) Urea Nitrogen POC (test 36 mg/dL 7-18 H code = 51974128) Glucose POC (test code = 114 mg/dL 74-106 H 61452339) Hemoglobin POC (test 11.9 g/dL 12-16 L code = 87097301) Hematocrit POC (test 35.0 % 37.0-47.0 L code = 23104340) Lab Interpretation (test Abnormal code = 76147-4) [facility]1ab [facility] Ql OLENA+[id number] 20:25:16 Test Item Value Reference Range Interpretation Comments Hospitalized? (test No code = 47017-7) ICU? (test code = No 86286-2) Symptomatic as No defined by CDC? (test code = 95315-9) Employed in No Healthcare? (test code = 08176-8) Resident in a No congregate care setting (including nursing homes, residential care for people with intellectual and developmental disabilities, psychiatric treatment facilities, group homes, board and care homes, homeless fpc, foster care or other): (test code = 19897-3) SARS-CoV-2 ORF1ab NOT DETECTED Not Detected INTERPRETA TION: No Resp Ql OLENA+probe detectable levels of (test code = SARS-CoV-2 45298-6) Coronavirus (COVID-19) were present in this patient's [...] SARS-CoV-2 mole cular diagnostic assa y utilizes [employer] Mediated Amplification ( TMA) technology to r apidly detect the SARS -CoV-2 (COVID-19) viru s from respiratory adriana ples. In accordance with\\XC2A0\\the FDA's guidance docume nt "Policy for Diagnostic Test s for Coronavirus Disease-2019 du [facility] the [facility]", ginger s test was developed, and its performance characteristics were verified by the [facility] molecular diagn ostics laboratory and is authorized for clinical diagno stic use. \\XC2A0\\Ginger s laboratory is certified under the Clinical Labora tory Improvement Amendments (CLI A) as qualified to pe rform high complexity clinical labora tory testing. [facility] POC docked [id number] 11:16:15 Test Item Value Reference Range Interpretation Comments pH, Pankaj POC (test code 7.32 7.33-7.43 L = 61988338) pCO2,Pankaj POC (test code 31.0 See_Comment L [Au tomated = 30987208) message] The sy stem which generated this result transmitted reference range : 38 - 50 mmHg. The reference range was not used to interpret this result as normal/abnormal . PO2, Venous POC (BKR) 44 See_Comment L [Auto mated (test code = 65760325) messa ge] The system which generated this result transmitted reference range : 50 - 75 mm Hg. The reference range was not used to interpret this result as normal/abnormal . Ionized Calcium POC 1.24 mmol/L 1.15-1.29 (test code = 38681882) HCO3, Pankaj POC (test 16 mmol/L 22-26 L code = 11050040) TCO2 POC (test code = 17 mmol/L 21-32 L 91506290) Base Deficit, Pankaj POC -9 (test code = 83663054) Sample Type (test code STEPAN valencia Notified = 66081901) % Sat, Pankaj POC (test 77 % code = 34439338) Lab Interpretation Abnormal (test code = 21741-2) [facility] VBG POC docked [id number] 11:16:15 Test Item Value Reference Range Interpretation Comments pH, Pankaj POC (test code 7.32 7.33-7.43 L = 10877386) pCO2,Pankaj POC (test code 31.0 See_Comment L [Au tomated = 69357604) message] The sy stem which generated this result transmitted reference range : 38 - 50 mmHg. The reference range was not used to interpret this result as normal/abnormal . PO2, Venous POC (BKR) 44 See_Comment L [Auto mated (test code = 16932521) [employer]] The system which generated this result transmitted reference range : 50 - 75 mm Hg. The reference range was not used to interpret this result as normal/abnormal . Ionized Calcium POC 1.24 mmol/L 1.15-1.29 (test code = 19701471) HCO3, Pankaj POC (test 16 mmol/L 22-26 L code = 35404625) TCO2 POC (test code = 17 mmol/L 21-32 L 50210455) Base Deficit, Pankaj POC -9 (test code = 00155257) Sample Type (test code STEPAN valencia Notified = 19360831) % Sat, Pankaj POC (test 77 % code = 72609560) Lab Interpretation Abnormal (test code = 73496-3) [facility] VBG POC docked [id number] 11:16:15 Test Item Value Reference Range Interpretation Comments pH, Pankaj POC (test code 7.32 7.33-7.43 L = 88739734) pCO2,Pankaj POC (test code 31.0 See_Comment L [Au tomated = 87434683) message] The sy stem which generated this result transmitted reference range : 38 - 50 mmHg. The reference range was not used to interpret this result as normal/abnormal . PO2, Venous POC (BKR) 44 See_Comment L [Auto mated (test code = 82653535) [employer]] The system which generated this result transmitted reference range : 50 - 75 mm Hg. The reference range was not used to interpret this result as normal/abnormal . Ionized Calcium POC 1.24 mmol/L 1.15-1.29 (test code = 45624079) HCO3, Pankaj POC (test 16 mmol/L 22-26 L code = 95196291) TCO2 POC (test code = 17 mmol/L 21-32 L 84615606) Base Deficit, Pankaj POC -9 (test code = 40217128) Sample Type (test code IVEN Physi erik Notified = 75425408) % Sat, Pankaj POC (test 77 % code = 05069050) Lab Interpretation Abnormal (test code = 82707-4) [facility] VBG POC docked [id number] 11:16:15 Test Item Value Reference Range Interpretation Comments pH, Pankaj POC (test code 7.32 7.33-7.43 L = 18382481) pCO2,Pankaj POC (test code 31.0 See_Comment L [Au tomated = 35091624) message] The sy stem which generated this result transmitted reference range : 38 - 50 mmHg. The reference range was not used to interpret this result as normal/abnormal . PO2, Venous POC (BKR) 44 See_Comment L [Auto mated (test code = 68638068) [employer]] The system which generated this result transmitted reference range : 50 - 75 mm Hg. The reference range was not used to interpret this result as normal/abnormal . Ionized Calcium POC 1.24 mmol/L 1.15-1.29 (test code = 84291129) HCO3, Pankaj POC (test 16 mmol/L 22-26 L code = 69046421) TCO2 POC (test code = 17 mmol/L 21-32 L 00655736) Base Deficit, Pankaj POC -9 (test code = 92464472) Sample Type (test code IVEN Physi erik Notified = 04442534) % Sat, Pankaj POC (test 77 % code = 73750200) Lab Interpretation Abnormal (test code = 78154-4) [facility] VBG POC docked [id number] 11:16:15 Test Item Value Reference Range Interpretation Comments pH, Pankaj POC (test code 7.32 7.33-7.43 L = 14426316) pCO2,Pankaj POC (test code 31.0 See_Comment L [Au tomated = 25722088) message] The sy stem which generated this result transmitted reference range : 38 - 50 mmHg. The reference range was not used to interpret this result as normal/abnormal . PO2, Venous POC (BKR) 44 See_Comment L [Auto mated (test code = 31035114) messa ge] The system which generated this result transmitted reference range : 50 - 75 mm Hg. The reference range was not used to interpret this result as normal/abnormal . Ionized Calcium POC 1.24 mmol/L 1.15-1.29 (test code = 66867839) HCO3, Pankaj POC (test 16 mmol/L 22-26 L code = 83836638) TCO2 POC (test code = 17 mmol/L 21-32 L 81284087) Base Deficit, Pankaj POC -9 (test code = 49481226) Sample Type (test code IVFLORENCE Physi erik Notified = 47276996) % Sat, Pankaj POC (test 77 % code = 74132236) Lab Interpretation Abnormal (test code = 50565-6) [facility]BG POC docked [id number] 11:16:15 Test Item Value Reference Range Interpretation Comments pH, Pankaj POC (test code 7.32 7.33-7.43 L = 81786079) pCO2,Pankaj POC (test code 31.0 See_Comment L [Au tomated = 29620575) message] The sy stem which generated this result transmitted reference range : 38 - 50 mmHg. The reference range was not used to interpret this result as normal/abnormal . PO2, Venous POC (BKR) 44 See_Comment L [Auto mated (test code = 85544693) messa ge] The system which generated this result transmitted reference range : 50 - 75 mm Hg. The reference range was not used to interpret this result as normal/abnormal . Ionized Calcium POC 1.24 mmol/L 1.15-1.29 (test code = 37827078) HCO3, Pankaj POC (test 16 mmol/L 22-26 L code = 61188334) TCO2 POC (test code = 17 mmol/L 21-32 L 11672948) Base Deficit, Pankaj POC -9 (test code = 43192804) Sample Type (test code STEPAN Physi erik Notified = 18046518) % Sat, Pankaj POC (test 77 % code = 36892149) Lab Interpretation Abnormal (test code = 06573-6) [facility] VBG POC docked [id number] 11:16:15 Test Item Value Reference Range Interpretation Comments pH, Pankaj POC (test code 7.32 7.33-7.43 L = 27305306) pCO2,Pankaj POC (test code 31.0 See_Comment L [Au tomated = 57011979) message] The sy stem which generated this result transmitted reference range : 38 - 50 mmHg. The reference range was not used to interpret this result as normal/abnormal . PO2, Venous POC (BKR) 44 See_Comment L [Auto mated (test code = 40823690) messa ge] The system which generated this result transmitted reference range : 50 - 75 mm Hg. The reference range was not used to interpret this result as normal/abnormal . Ionized Calcium POC 1.24 mmol/L 1.15-1.29 (test code = 98095850) HCO3, Pankaj POC (test 16 mmol/L 22-26 L code = 72498342) TCO2 POC (test code = 17 mmol/L 21-32 L 54110761) Base Deficit, Pankaj POC -9 (test code = 00082321) Sample Type (test code STEPAN Physi erik Notified = 10822759) % Sat, Pankaj POC (test 77 % code = 38284727) Lab Interpretation Abnormal (test code = 66736-7) [facility] VBG POC docked [id number] 11:16:15 Test Item Value Reference Range Interpretation Comments pH, Pankaj POC (test code 7.32 7.33-7.43 L = 98272856) pCO2,Pankaj POC (test code 31.0 See_Comment L [Au tomated = 04942518) message] The sy stem which generated this result transmitted reference range : 38 - 50 mmHg. The reference range was not used to interpret this result as normal/abnormal . PO2, Venous POC (BKR) 44 See_Comment L [Auto mated (test code = 04902179) messa ge] The system which generated this result transmitted reference range : 50 - 75 mm Hg. The reference range was not used to interpret this result as normal/abnormal . Ionized Calcium POC 1.24 mmol/L 1.15-1.29 (test code = 07768914) HCO3, Pankaj POC (test 16 mmol/L 22-26 L code = 52526959) TCO2 POC (test code = 17 mmol/L 21-32 L 92187940) Base Deficit, Pankaj POC -9 (test code = 92791976) Sample Type (test code IVFLORENCE Physi erik Notified = 32256047) % Sat, Pankaj POC (test 77 % code = 58211495) Lab Interpretation Abnormal (test code = 78766-7) [facility]BG POC docked [id number] 11:16:15 Test Item Value Reference Range Interpretation Comments pH, Pankaj POC (test code 7.32 7.33-7.43 L = 37327538) pCO2,Pankaj POC (test code 31.0 See_Comment L [Au tomated = 93308558) message] The sy stem which generated this result transmitted reference range : 38 - 50 mmHg. The reference range was not used to interpret this result as normal/abnormal . PO2, Venous POC (BKR) 44 See_Comment L [Auto mated (test code = 73994431) [employer]] The system which generated this result transmitted reference range : 50 - 75 mm Hg. The reference range was not used to interpret this result as normal/abnormal . Ionized Calcium POC 1.24 mmol/L 1.15-1.29 (test code = 20885304) HCO3, Pankaj POC (test 16 mmol/L 22-26 L code = 49570158) TCO2 POC (test code = 17 mmol/L 21-32 L 04530653) Base Deficit, Pankaj POC -9 (test code = 29418981) Sample Type (test code IVFLORENCE Physi erik Notified = 71889461) % Sat, Pankaj POC (test 77 % code = 76624291) Lab Interpretation Abnormal (test code = 51522-7) [facility] VBG POC docked [id number] 11:16:15 Test Item Value Reference Range Interpretation Comments pH, Pankaj POC (test code 7.32 7.33-7.43 L = 22667529) pCO2,Pankaj POC (test code 31.0 See_Comment L [Au tomated = 12028849) message] The sy stem which generated this result transmitted reference range : 38 - 50 mmHg. The reference range was not used to interpret this result as normal/abnormal . PO2, Venous POC (BKR) 44 See_Comment L [Auto mated (test code = 16157833) [employer]] The system which generated this result transmitted reference range : 50 - 75 mm Hg. The reference range was not used to interpret this result as normal/abnormal . Ionized Calcium POC 1.24 mmol/L 1.15-1.29 (test code = 10443863) HCO3, Pankaj POC (test 16 mmol/L 22-26 L code = 52033413) TCO2 POC (test code = 17 mmol/L 21-32 L 18534114) Base Deficit, Pankaj POC -9 (test code = 48002690) Sample Type (test code IVEN Physi erik Notified = 91725040) % Sat, Pankaj POC (test 77 % code = 37574141) Lab Interpretation Abnormal (test code = 25099-5) [facility]BG POC docked [id number] 11:16:15 Test Item Value Reference Range Interpretation Comments pH, Pankaj POC (test code 7.32 7.33-7.43 L = 93915629) pCO2,Pankaj POC (test code 31.0 See_Comment L [Au tomated = 03149347) message] The sy stem which generated this result transmitted reference range : 38 - 50 mmHg. The reference range was not used to interpret this result as normal/abnormal . PO2, Venous POC (BKR) 44 See_Comment L [Auto mated (test code = 98403563) [employer]] The system which generated this result transmitted reference range : 50 - 75 mm Hg. The reference range was not used to interpret this result as normal/abnormal . Ionized Calcium POC 1.24 mmol/L 1.15-1.29 (test code = 38312648) HCO3, Pankaj POC (test 16 mmol/L 22-26 L code = 86919198) TCO2 POC (test code = 17 mmol/L 21-32 L 15081009) Base Deficit, Pankaj POC -9 (test code = 87579495) Sample Type (test code IVEN Physi erik Notified = 76704843) % Sat, Pankaj POC (test 77 % code = 82262503) Lab Interpretation Abnormal (test code = 44089-0) [facility]BG POC docked [id number] 11:16:15 Test Item Value Reference Range Interpretation Comments pH, Pankaj POC (test code 7.32 7.33-7.43 L = 62470361) pCO2,Pankaj POC (test code 31.0 See_Comment L [Au tomated = 16352430) message] The sy stem which generated this result transmitted reference range : 38 - 50 mmHg. The reference range was not used to interpret this result as normal/abnormal . PO2, Venous POC (BKR) 44 See_Comment L [Auto mated (test code = 86605328) messa ge] The system which generated this result transmitted reference range : 50 - 75 mm Hg. The reference range was not used to interpret this result as normal/abnormal . Ionized Calcium POC 1.24 mmol/L 1.15-1.29 (test code = 03327465) HCO3, Pankaj POC (test 16 mmol/L 22-26 L code = 56929638) TCO2 POC (test code = 17 mmol/L 21-32 L 61636927) Base Deficit, Pankaj POC -9 (test code = 25448524) Sample Type (test code STEPAN Moeller cian Notified = 03506714) % Sat, Pankaj POC (test 77 % code = 94876396) Lab Interpretation Abnormal (test code = 05724-0) [facility]BG POC docked [id number] 11:16:15 Test Item Value Reference Range Interpretation Comments pH, Pankaj POC (test code 7.32 7.33-7.43 L = 20355252) pCO2,Pankaj POC (test code 31.0 See_Comment L [Au tomated = 86206221) message] The sy stem which generated this result transmitted reference range : 38 - 50 mmHg. The reference range was not used to interpret this result as normal/abnormal . PO2, Venous POC (BKR) 44 See_Comment L [Auto mated (test code = 85526641) messa ge] The system which generated this result transmitted reference range : 50 - 75 mm Hg. The reference range was not used to interpret this result as normal/abnormal . Ionized Calcium POC 1.24 mmol/L 1.15-1.29 (test code = 66299726) HCO3, Pankaj POC (test 16 mmol/L 22-26 L code = 27723929) TCO2 POC (test code = 17 mmol/L 21-32 L 77200412) Base Deficit, Pankaj POC -9 (test code = 70563877) Sample Type (test code STEPAN valencia Notified = 42406409) % Sat, Pankaj POC (test 77 % code = 59081581) Lab Interpretation Abnormal (test code = 01585-7) [facility]BG POC docked [id number] 11:16:15 Test Item Value Reference Range Interpretation Comments pH, Pankaj POC (test code 7.32 7.33-7.43 L = 57899368) pCO2,Pankaj POC (test code 31.0 See_Comment L [Au tomated = 79536810) message] The sy stem which generated this result transmitted reference range : 38 - 50 mmHg. The reference range was not used to interpret this result as normal/abnormal . PO2, Venous POC (BKR) 44 See_Comment L [Auto mated (test code = 98664823) [employer]] The system which generated this result transmitted reference range : 50 - 75 mm Hg. The reference range was not used to interpret this result as normal/abnormal . Ionized Calcium POC 1.24 mmol/L 1.15-1.29 (test code = 32650623) HCO3, Pankaj POC (test 16 mmol/L 22-26 L code = 45037357) TCO2 POC (test code = 17 mmol/L 21-32 L 53531095) Base Deficit, Pankaj POC -9 (test code = 95506749) Sample Type (test code STEPAN Physi erik Notified = 18384832) % Sat, Pankaj POC (test 77 % code = 17384408) Lab Interpretation Abnormal (test code = 16287-2) [facility] VBG POC docked [id number] 11:16:15 Test Item Value Reference Range Interpretation Comments pH, Pankaj POC (test code 7.32 7.33-7.43 L = 22000293) pCO2,Pankaj POC (test code 31.0 See_Comment L [Au tomated = 85866622) message] The sy stem which generated this result transmitted reference range : 38 - 50 mmHg. The reference range was not used to interpret this result as normal/abnormal . PO2, Venous POC (BKR) 44 See_Comment L [Auto mated (test code = 26067387) messa ge] The system which generated this result transmitted reference range : 50 - 75 mm Hg. The reference range was not used to interpret this result as normal/abnormal . Ionized Calcium POC 1.24 mmol/L 1.15-1.29 (test code = 76477881) HCO3, Pankaj POC (test 16 mmol/L 22-26 L code = 54413320) TCO2 POC (test code = 17 mmol/L 21-32 L 17732391) Base Deficit, Pankaj POC -9 (test code = 36377704) Sample Type (test code IVFLORENCE Physi erik Notified = 71308311) % Sat, Pankaj POC (test 77 % code = 32705023) Lab Interpretation Abnormal (test code = 27211-6) [facility] VBG POC docked [id number] 11:16:15 Test Item Value Reference Range Interpretation Comments pH, Pankaj POC (test code 7.32 7.33-7.43 L = 19075805) pCO2,Pankaj POC (test code 31.0 See_Comment L [Au tomated = 58602184) message] The sy stem which generated this result transmitted reference range : 38 - 50 mmHg. The reference range was not used to interpret this result as normal/abnormal . PO2, Venous POC (BKR) 44 See_Comment L [Auto mated (test code = 79464583) Phone2Action] The system which generated this result transmitted reference range : 50 - 75 mm Hg. The reference range was not used to interpret this result as normal/abnormal . Ionized Calcium POC 1.24 mmol/L 1.15-1.29 (test code = 62401733) HCO3, Pankaj POC (test 16 mmol/L 22-26 L code = 89674112) TCO2 POC (test code = 17 mmol/L 21-32 L 15685660) Base Deficit, Pankaj POC -9 (test code = 72270534) Sample Type (test code IVFLORENCE Physi erik Notified = 34092688) % Sat, Pankaj POC (test 77 % code = 14683729) Lab Interpretation Abnormal (test code = 08319-7) [place] [address] LEAD [id number] 20:59:5612 LEAD EKG FOR [facility] Test Date: 6895-52-31Aiv Name: DORA JOSEPH Department: 5520Patient ID: [id number] Room: Gender: M Engineer: [id number]: 1970 Requested By: TANJA Garza Number: [id number] Reading MD: Chiara Calles MeasurementsIntervals Koppel Rate: 75 P: 84PR: 153 QRS: 67QRSD: 104 T: 77QT: 344 QTc: 373 Interpretive StatementsSINUS RHYTHMPOSSIBLE RIGHT VENTRICULAR CONDUCTION DELAY [RSR (QR) IN V1/V2]Electronically Signed On 01-09-2022 8:27:19 CDT by [employer] LEAD [id number] 20:59:5612 LEAD EKG FOR [facility] Test Date: 8821-78-93Ctk Name: DORA PAEZRY Department: 5520Patient ID: [id number] Room: Gender: M Engineer: [id number]: 1970 Requested By: TANJA Garza Number: [id number] Reading MD: Chiara Calles MeasurementsIntervals Koppel Rate: 75 P: 84PR: 153 QRS: 67QRSD: 104 T: 77QT: 344 QTc: 373 Interpretive StatementsSINUS RHYTHMPOSSIBLE RIGHT VENT RICULAR CONDUCTION DELAY [RSR (QR) IN V1/V2]Electronically Signed On 01-09-2022 8:27:19 CDT by [employer]12 LEAD [id number] 20:59:5612 LEAD EKG FOR [facility] Test Date: 3529-96-20Vuf Name: DORA PAEZRY Department: 5520Patient ID: [id number] Room: Gender: M Engineer: [id number]: 1970 Requested By: TANJA Garza Number: [id number] Reading MD: Chiara Calles MeasurementsIntervals Koppel Rate: 75 P: 84PR: 153 QRS: 67QRSD: 104 T: 77QT: 344 QTc: 373 Interpretive StatementsSINUS RHYTHMPOSSIBLE RIGHT VENTRICULAR CONDUCTION DELAY [RSR (QR) IN V1/V2]Electronically Signed On 01-09-2022 8:27:19 CDT by Buck [employer] LEAD [id number] 20:59:5612 LEAD EKG FOR [facility] Test Date: 6887-90-95Pmk Name: DORA JOSEPH Department: 5520Patient ID: [id number] Room: Gender: M Engineer: [id number]: 1970 Requested By: TANJA Garza Number: [id number] Reading MD: Chiara Calles MeasurementsIntervals Koppel Rate: 75 P: 84P R: 153 QRS: 67QRSD: 104 T: 77QT: 344 QTc: 373 Interpretive StatementsSINUS RHYTHMPOSSIBLE RIGHT VENTRICULAR CONDUCTION DELAY [RSR (QR) IN V1/V2]Electronically Signed On 01-09-2022 8:27:19 CDT by [facility] ISC8bakariHealthcareSourceNorthwest Medical CenterBitLit12 LEAD [id number] 20:59:5612 LEAD EKG FOR [facility] Test Date: 3090-30-86Gxb Name: DORA PAEZRY Department: 5520Patient ID: [id number] Room: Gender: M Engineer: [id number]: 1970 Requested By: TANJA Garza Number: [id number] Reading MD: Chiara Calles MeasurementsIntervals Koppel Rate: 75 P: 84PR: 153 QRS: 67QRSD: 104 T: 77QT: 344 QTc: 373 Interpretive StatementsSINUS RHYTHMPOSSIBLE RIGHT VENTRICULAR CONDUCTION DELAY [RSR (QR) IN V1/V2]Electronically Signed On 01-09-2022 8:27:19 CDT by Chiara ISC8bakariHealthcareSourceCompaAMDL [place] [address] LEAD [id number] 20:59:5612 LEAD EKG FOR [facility] Test Date: 8582-50-41Ffp Name: DORA JOSEPH Department: 5520Patient ID: [id number] Room: Gender: M Engineer: [id number]: 1970 Requested By: TANJA Garza Number: [id number] Reading MD: Chiara Calles MeasurementsIntervals Koppel Rate: 75 P: 84PR: 153 QRS: 67QRSD: 104 T: 77QT: 344 QTc: 373 Interpretive StatementsSINUS RHYTHMPOSSIBLE RIGHT VENT RICULAR CONDUCTION DELAY [RSR (QR) IN V1/V2]Electronically Signed On 01-09-2022 8:27:19 CDT by WaleedCoAdna PhotonicsNorthwest Medical CenterAMDL Eltqgm29 LEAD [id number] 20:59:5612 LEAD EKG FOR [facility] Test Date: 3596-18-23Ihm Name: DORA JOSEPH Department: 5520Patient ID: [id number] Room: Gender: M Engineer: [id number]: 1970 Requested By: TANJA Garza Number: [id number] Reading MD: Chiara Calles MeasurementsIntervals Koppel Rate: 75 P: 84PR: 153 QRS: 67QRSD: 104 T: 77QT: 344 QTc: 373 Interpretive StatementsSINUS RHYTHMPOSSIBLE RIGHT VENTRICULAR CONDUCTION DELAY [RSR (QR) IN V1/V2]Electronically Signed On 01-09-2022 8:27:19 CDT by WalProteus AgilityNorthwest Medical CenterBitLit12 LEAD [id number] 20:59:5612 LEAD EKG FOR [facility] Test Date: 4649-64-17Uqi Name: DORA PAEZRY Department: 5520Patient ID: [id number] Room: Gender: M Engineer: [id number]: 1970 Requested By: TANJA Garza Number: [id number] Reading MD: Chaira Calles MeasurementsIntervals Koppel Rate: 75 P: 84P R: 153 QRS: 67QRSD: 104 T: 77QT: 344 QTc: 373 Interpretive StatementsSINUS RHYTHMPOSSIBLE RIGHT VENTRICULAR CONDUCTION DELAY [RSR (QR) IN V1/V2]Electronically Signed On 01-09-2022 8:27:19 CDT by [facility] HospitalCoAdna PhotonicsNorthwest Medical CenterAMDL Vlaxbi73 LEAD [id number] 20:59:5612 LEAD EKG FOR [facility] Test Date: 4877-67-85Hzd Name: DORA PAEZRY Department: 5520Patient ID: [id number] Room: Gender: M Engineer: [id number]: 1970 Requested By: TANJA Garza Number: [id number] Reading MD: Chiara Calles MeasurementsIntervals Koppel Rate: 75 P: 84PR: 153 QRS: 67QRSD: 104 T: 77QT: 344 QTc: 373 Interpretive StatementsSINUS RHYTHMPOSSIBLE RIGHT VENTRICULAR CONDUCTION DELAY [RSR (QR) IN V1/V2]Electronically Signed On 01-09-2022 8:27:19 CDT by Chiara EsquedaBitLit12 LEAD [id number] 20:59:5612 LEAD EKG FOR [facility] Test Date: 1884-34-61Slx Name: DORA JOSEPH Department: 5520Patient ID: [id number] Room: Gender: Engineer: [id number]: 1970 Requested By: TANJA Garza Number: [id number] Reading MD: Chiara Calles MeasurementsIntervals Koppel Rate: 75 P: 84PR: 153 QRS: 67QRSD: 104 T: 77QT: 344 QTc: 373 Interpretive StatementsSINUS RHYTHMPOSSIBLE RIGHT VENT RICULAR CONDUCTION DELAY [RSR (QR) IN V1/V2]Electronically Signed On 01-09-2022 8:27:19 CDT by SeeHealthcareSourceNorthwest Medical CenterBitLit12 LEAD [id number] 20:59:5612 LEAD EKG FOR [facility] Test Date: 2454-64-56Nod Name: DORA JOSEPH Department: 5520Patient ID: [id number] Room: Gender: Engineer: [id number]: 1970 Requested By: TANJA Garza Number: [id number] Reading MD: Chiara Calles MeasurementsIntervals Koppel Rate: 75 P: 84PR: 153 QRS: 67QRSD: 104 T: 77QT: 344 QTc: 373 Interpretive StatementsSINUS RHYTHMPOSSIBLE RIGHT VENTRICULAR CONDUCTION DELAY [RSR (QR) IN V1/V2]Electronically Signed On 01-09-2022 8:27:19 CDT by ChiaraISC8bakariKeen Systems12 LEAD [id number] 20:59:5612 LEAD EKG FOR [facility] Test Date: 3896-52-46Peu Name: DORA PAEZRY Department: 5520Patient ID: [id number] Room: Gender: M Engineer: [id number]: 1970 Requested By: TANJA Garza Number: [id number] Reading MD: Chiara Calles MeasurementsIntervals Koppel Rate: 75 P: 84PR: 153 QRS: 67QRSD: 104 T: 77QT: 344 QTc: 373 Interpretive StatementsSINUS RHYTHMPOSSIBLE RIGHT VENTRICULAR CONDUCTION DELAY [RSR (QR) IN V1/V2]Electronically Signed On 01-09-2022 8:27:19 CDT by EfrenAlyotech12 LEAD [id number] 20:59:5612 LEAD EKG FOR [facility] Test Date: 3823-19-41Bng Name: DORA JOSEPH Department: 5520Patient ID: [id number] Room: Gender: M Engineer: [id number]: 1970 Requested By: TANJA Garza Number: [id number] Reading MD: Chiara Calles MeasurementsIntervals Koppel Rate: 75 P: 84PR: 153 QRS: 67QRSD: 104 T: 77QT: 344 QTc: 373 Interpretive StatementsSINUS RHYTHMPOSSIBLE RIGHT VENTRICULAR CONDUCTION DELAY [RSR (QR) IN V1/V2]Electronically Signed On 01-09-2022 8:27:19 CDT by PeacehealthAlyotech12 LEAD [id number] 20:59:5612 LEAD EKG FOR [facility] Test Date: 0030-86-31Gge Name: DORA JOSEPH Department: 5520Patient ID: [id number] Room: Gender: M Engineer: [id number]: 1970 Requested By: TANJA Garza Number: [id number] Reading MD: Chiara Calles MeasurementsIntervals Koppel Rate: 75 P: 84PR: 153 QRS: 67QRSD: 104 T: 77QT: 344 QTc: 373 Interpretive StatementsSINUS RHYTHMPOSSIBLE RIGHT VENT RICULAR CONDUCTION DELAY [RSR (QR) IN V1/V2]Electronically Signed On 01-09-2022 8:27:19 CDT by [employer] LEAD [id number] 20:59:5612 LEAD EKG FOR [facility] Test Date: 5240-37-17Hti Name: DORA PAEZRY Department: 5520Patient ID: [id number] Room: Gender: M Engineer: [id number]: 1970 Requested By: TANJA Garza Number: [id number] Reading MD: Chiara Calles MeasurementsIntervals Koppel Rate: 75 P: 84PR: 153 QRS: 67QRSD: 104 T: 77QT: 344 QTc: 373 Interpretive StatementsSINUS RHYTHMPOSSIBLE RIGHT VENTRICULAR CONDUCTION DELAY [RSR (QR) IN V1/V2]Electronically Signed On 01-09-2022 8:27:19 CDT by PeacehealthrobertAngelJohn [place] [address] LEAD [id number] 20:59:5612 LEAD EKG FOR [facility] Test Date: 0192-94-17Cvv Name: DORA PAEZRY Department: 5520Patient ID: [id number] Room: Gender: M Engineer: [id number]: 1970 Requested By: TANJA Garza Number: [id number] Reading MD: Chiara Calles MeasurementsIntervals Koppel Rate: 75 P: 84PR : 153 QRS: 67QRSD: 104 T: 77QT: 344 QTc: 373 Interpretive StatementsSINUS RHYTHMPOSSIBLE RIGHT VENTRICULAR CONDUCTION DELAY [RSR (QR) IN V1/V2]Electronically Signed On 01-09-2022 8:27:19 CDT by Chiara EsquedaLegacy Health W/AUTO [id number] 23:52:00 Test Item Value Reference Range Interpretation [...] = MX#) 0.8 k/mm3 0.1-0.8 N LIVER [id number] 20:04:00 Test Item Value Reference Range Interpretation [...] 67 UNITS/L 25-125 N LYNDSEY) BASIC METABOLIC [id number] 19:54:00 Test Item Value Reference Range Interpretation [...] POCGLU) 81 MG/DL - CT ABD PELVIS W/[id number] 00:00:00 [facility] : 1970 Sex: M Name: MARIA ISABEL JOSEPH FSED : 1970 Age/S: 51 / M [address] [facility] Unit #: [id number] Loc: [place] [address] Phys: Raffaele Levi MD Acct: [id number] Dis Date: Status: PRE ER PHONE #: Exam Date: 09/23/20211999 FAX #: Reason: RUQ PAIN, VOMITING EXAMS: CPT CODE: [id number] CT ABD PELVIS W/CONT 20052 PROCEDURE INFORMATION: Exam: CT Abdomen And Pelvis With Contrast Exam date and time: 09/23/2021 7:51 PM Age: 51 years old Clinical indication: Abdominal pain; Additional info: Ruq pain, vomiting TECHNIQUE:Imaging protocol: Computed tomography of the abdomen and [...] Liver: The left hepatic lobe is not present.No right hepatic lobe abnormality identified. Gallbladder and bile ducts: Gallbladder is contracted.No calcified gallstones are seen. Pancreas: Normal. No [...] : 1970 Age/S: 51 / M [address] [facility] Unit #: [id number] Loc: [place] [address] Phys: Raffaele Levi MD Acct: [id number] Dis Date: Status: PRE ER PHONE #: Exam Date: 09/23/20211999 FAX #: Reason: RUQ PAIN, VOMITING EXAMS: CPT CODE: [id number] CT ABD PELVIS W/CONT 33103 <Continued> abdominal small bowel loops may relate to incom plete luminal distention or enteritis. 2. 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 No obstruction. at 2048 Reported and signed by: Juan Juarez M.D. CC: Raffaele Levi MD Technologist:Stephanie Albrecht, RT(R)(CT) CTDI: DLP: Trnscb Date/Time: 09/23/2021 (2048) Candido.SG9 Orig Print D/T: S: 09/23/2021 (2049) PAGE 2 Signed Report COMPREHENSIVE METABOLIC [id number] 11:51:00 Test Item Value Reference Range Interpretation [...] Units/L 50.0-136.0 N code = ALKP) PROTHROMBIN [id number] 11:41:00 Test Item Value Reference Range Interpretation Comments PROTHROMBIN TIME 10.9 SECONDS 9.9-12.8 N PATIENT (test code = PTP) INTERNATIONAL NORMAL 0.9 0.89-1.14 N THE INR IS TO BE USED RATIO (test code = ONLY FOR MONITORING INR) ORAL ANTICOAGULANTTH ERAPY. 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 [facility] BASIC METABOLIC [id number] 05:21:00 Test Item Value Reference Range Interpretation [...] (test code = POCGLU) 92 MG/DL GLUCOSE [id number] 05:19:00 Test Item Value Reference Range Interpretation Comments GLUCOSE BEDSIDE (test 51 MG/DL 70-110 L [facility] med by certified code = GLUBED) 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 [facility] CBC W/AUTO [id number] 14:00:00 Test Item Value Reference Range Interpretation [...] MX#) 0.2 k/mm3 0.1-0.8 N CBC W/AUTO [id number] 00:07:00 Test Item Value Reference Range Interpretation [...] = LY#) 2.4 K/uL 1.0-3.8 N LIVER [id number] 16:14:00 Test Item Value Reference Range Interpretation [...] 65 UNITS/L 25-125 N LYNDSEY) BASIC METABOLIC [id number] 16:07:00 Test Item Value Reference Range Interpretation [...] POCGLU) 96 MG/DL - XR CHEST 1 [id number] 00:00:00 [facility] : 1970 Sex: MFAX: Steve Urias MD [phone] [place]: [place] St: PRE Name: DORA JOSEPH FSED : 1970 Age/S: 51/M [address] [facility] Unit #: [id number] Loc: [place] [address] Phys: Steve Urias MD Acct: [id number] Dis Date: Status: PRE ER PHONE #: Exam Date: 06/27/2021 7098 FAX #: Reason: Abdominal PainEXAMS: CPT CODE: [id number] XR CHEST 1 V 76194 PROCEDURE INFORMATION: Exam: XR Chest Exam date [...] Mar M.D. CC: Steve Urias MD Technologist: Yecenia Carbajal RT(R)(CT) Trnscrd Date/Time/By: 06/27/2021 (1558) : By: GarettJG42 Orig Print D/T: S: 06/27/2021 (2679) PAGE 1 Signed Report- CT ABD PELVIS [id number] 00:00:00 [facility] : 1970 Sex: MName: DORA JOSEPH FSED : 1970 Age/S: 51 / M [address] [facility] Unit #: [id number] Loc: [place] [address] Phys: Steve Urias MD Acct: [id number] Dis Date: Status: REG ER PHONE #: Exam Date: 06/27/2021 1625 FAX #: Reason: pain in region of colostomy EXAMS: CPT CODE: [id number] CT ABD PELVIS W/CONT 15503 PROCEDURE INFORMATION: Exam: CT Abdomen And Pelvis [...] : 1970 Age/S: 51 / M [address] [facility] Unit #: [id number] Loc: [place] [address] Phys: Steve Urias MD Acct: [id number] Dis Date: Status: REG ER PHONE #: Exam Date: 06/27/2021 162 FAX #: Reason: pain in region of colostomy EXAMS: CPT CODE: [id number] CT ABD PELVIS W/CONT 66793 <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 There is no evidence of associated intestinal obstruction. 2. No additional acute CT abnormalities of the abdomen or pelvis are identified. SL:131 at 1650 Reported and signed by: Marco Raman M.D. CC: Steve Urias MD Technologist:RT Alanna(R)(CT) CTDI: DLP: Trnscb Date/Time: 06/27/2021 (1650) [place] Orig Print D/T: S: 06/27/2021 (5715) PAGE 2 Signed ReportTHE [facility] W/AUTO [id number] 09:20:00 Test Item Value Reference Range Interpretation [...] (test code NO = MDIFF) CBC W/AUTO [id number] 08:59:00 Test Item Value Reference Range Interpretation [...] REQUIRED (test code = MDIFF) BASIC METABOLIC [id number] 08:21:00 Test Item Value Reference Range Interpretation [...] 8.4 mg/dL 8.0-10.5 N CA) BASIC METABOLIC [id number] 08:34:00 Test Item Value Reference Range Interpretation [...] 8.4 mg/dL 8.0-10.5 N CA) CBC W/AUTO [id number] 07:41:00 Test Item Value Reference Range Interpretation [...] = MDIFF) UA RFLX MICR CULT IF [id number] 10:10:00 Test Item Value Reference Range Interpretation [...] Suprapubic Pain Temperature > 100.4 FSpecimen Description: [facility] METABOLIC [id number] 04:13:00 Test Item Value Reference Range Interpretation [...] mg/dL 8.0-10.5 N CA) Coronavirus 2019 nCoV [id number] 22:03:00 Test Item Value Reference Range Interpretation Comments Coronavirus 2019 Negative Negative Performed b y certified nCoV Bedside (test analyst at [place] [facility] code = CtrNegative res ults should VHYQA94HGOBK) be treated as presumptive and, ifinconsis tent with clinical signs and symptoms or necessaryfor patient management, fifi uld be tested with an alternativemole cular assay. Negative result s do not preclude MMDN-HnD-5dpdny tion and should not be u sed as the sole basis forp atient management deci sions. Negative result s should beconsidered in the context of a patient's recent exposures,histo ry, presence of clinical sig ns and symptoms consis tentwith COVID-19. CBC W/AUTO [id number] 21:11:00 Test Item Value Reference Range Interpretation [...] MX#) 0.6 k/mm3 0.1-0.8 N BASIC METABOLIC [id number] 19:00:00 Test Item Value Reference Range Interpretation [...] POCGLU) 92 MG/DL - CT ABD PELVIS [id number] 00:00:00 [facility] : 1970 Sex: MName: DORA JOSEPH FSED : 1970 Age/S: 51 / M [address] [facility] Unit #: [id number] Loc: [place] [address] Phys: Marcello Benoit MD Acct: [id number] Dis Date: Status: REG ER PHONE #: Exam Date: 04/28/2021 2277 FAX #: Reason: epigastric and LLQ pain, R-sided colostomy EXAMS:CPT CODE: [id number] CT ABD PELVIS W/CONT 94561 PROCEDURE INFORMATION: Exam: CT Abdomen And Pelvis [...] FSED : 1970 Age/S:51 / M [address] [facility] Unit #: [id number] Loc: [place] [address] Phys: Marcello Benoit MD Acct: [id number] Dis Date: Status: REG ER PHONE #: Exam Date: 04/28/2021 1914 FAX #: Reason: epigastric and LLQ pain, R-sided colostomy EXAMS: CPT CODE: [id number] CT ABD PELVIS W/CONT 66805 <Continued> Reproductive: Unremarkable as visualized. Bones/joints: Unremarkable. [...] PAGE 2 Signed Report- XR ABDOMEN 1 [id number] 12:53:00 Name: DORA JOSEPH [facility] : 1970 Age/S: 50 / M [address] Unit #: [id number] Loc: [place] [address] 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 DOCTOR NATUROPATHIC Acct: [id number] Dis Date: Status: ADM IN PHONE #: [phone] Exam Date: 02/25/2020 1036 FAX #: Reason: abdominal distention EXAMS: CPT: [id number] XR ABDOMEN 1 V 84472 Fluoro Time: DAP (Gy m2): Air Kerma [...] the left lower quadrant (not previously seen) fc5526 Reported and signed by: Sol Paige MD CC: Andre Solano; Mark Perea MD PAGE 1 Signed Report Name: DORA JOSEPH [facility] : 1970 Age/S: 50 / M [address] Unit #: [id number] Loc: [place] [address] 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 Acct: [id number] Dis Date: Status: ADM IN PHONE #: [phone] Exam Date: 02/25/2020 1036 FAX #: Reason: abdominal distention EXAMS: CPT: [id number] XR ABDOMEN 1 V 77426 Fluoro Time: DAP (Gy m2): Air Kerma (mGy): <Continued> Technologist: Nichole Dill RT(R) Trnscb Date/Time: 02/25/2020 (5883) [id number] Orig Print D/T: S: 02/25/2020 (9178) PAGE 2 Signed Report COMPREHENSIVE METABOLIC [id number] 08:20:00 Test Item Value Reference Range Interpretation [...] 50-136 L TOTAL (test code = ALKP) [id number] 08:20:00 Test Item Value Reference Range Interpretation Comments MAGNESIUM (test code = MAG) 2.2 MG/DL 1.8-2.4 N THYROID STIMULATING [id number] 08:20:00 Test Item Value Reference Range Interpretation Comments THYROID STIMULATING HORMONE 5.430 mcIU/ML 0.340-4.820 H (test code = TSH) CBC W/AUTO [id number] 07:55:00 Test Item Value Reference Range Interpretation [...] N NRBC#) UA RFLX MICR CULT IF [id number] 12:29:00 Test Item Value Reference Range Interpretation [...] culture: Suprapubic PainUA RFLX MICR CULT IF [id number] 12:29:00 Test Item Value Reference Range Interpretation [...] for culture: Suprapubic PainCOVID 19 Asymptomatic IH [id number] 22:09:00 Test Item Value Reference Range Interpretation [...] tent with COVID-19. - CT ABD PELVIS [id number] 21:10:00 Name: DORA JOSEPH [place] : 1970 Age/S: 50 / M [address] Unit #: [id number] Loc: [place] [address] Phys: Evin Castellanos MD Acct: [id number] Dis Date: Status: REG ERPHONE #: [phone] Exam Date: 02/23/20202047 FAX #: Reason: diffuse abdomen pain and distention EXAMS: CPT: [id number] CT ABD PELVIS W/CONT 93273 EXAM: - CT ABD PELVIS W/CONT LOCATION: [...] automated exposure control, adjustment of the mA and/orkV according to patient size, and/or use of [...] 1 Signed Report (CONTINUED) Name: DORA JOSEPH [place] : 1970 Age/S: 50 / M [address] Unit #: [id number] Loc: [place] [address] Phys: Evin Castellanos MD Acct: [id number] Dis Date: Status: REG ER PHONE #: [phone] Date: 02/23/20202047 FAX #: Reason: diffuse abdomen pain and distention EXAMS: CPT: [id number] CT ABD PELVIS W/CONT 59987 <Continued> CT. No bowel wall thickening or [...] by: Marybel José M.D. CC: Susana Meza ACADEMIC MANAGER; Carl Luevano MD Technologist:Rudy Zuniga, RT(R)(CT)(MRI) CTDI: DLP: Trnscb Date/Time: 02/23/2020 (2109) t.SDR.TH15 Orig Print D/T: S: 02/23/2020 (2112) PAGE 2 Signed Report- XR CHEST 1 [id number] 21:03:00 Name: DORA JOSEPH [facility] : 1970 Age/S: 50 / M [address] Unit #: [id number] Loc: [place] [address] Phys: Evin Castellanos MD Acct: [id number] Dis Date: Status: REG ER PHONE #: [phone] Exam Date: 02/23/20202055 FAX #: Reason: Code Sepsis EXAMS: CPT: [id number] XR CHEST 1 V 41905 Fluoro Time: DAP (Gy m2): Air Kerma [...] by: Monica Quijano MD CC: Susana Meza ACADEMIC MANAGER; Carl Luevano MD PAGE 1 Signed Report Name: DORA JOSEPH [facility] : 1970 Age/S: 50 / M [id number] Unit #: [id number] Loc: [place] [address] Phys: Evin Castellanos MD Acct: [id number] Dis Date: Status: REG ER PHONE #: [phone] Exam Date: 02/23/20202055 FAX #: Reason: Code Sepsis EXAMS: CPT: [id number] XR CHEST 1 V 97711 Fluoro Time: DAP (Gy m2): Air Kerma [...] 8.5-10.1 N Completed by Nursing: NOHEPATIC FUNCTION [id number] 20:02:00 Test Item Value Reference Range Interpretation [...] N code = ALKP) Completed by Nursing: [id number] 20:02:00 Test Item Value Reference Range Interpretation Comments LIPASE (test code = LIP) 97 Unit/L 114-286 L Completed by Nursing: [id number] 20:02:00 Test Item Value Reference Range Interpretation [...] [facility] Completed by Nursing: NOLACTIC [id number] 19:59:00 Test Item Value Reference Range Interpretation Comments LACTIC ACID (test code = LACT) 1.2 mmol/L 0.4-2.0 N CBC W/AUTO [id number] 19:46:00 Test Item Value Reference Range Interpretation [...] CRITERIA = MDIFF) - XR ABDOMEN 2 [id number] 06:22:00 Name: DORA JOSEPH Donie : 1970 Age/S: 50 / M [address] Unit #: [id number] Loc: [place] [address] Phys: León Robertson MD Acct: [id number] Dis Date: Status: ADM INPHONE #: [phone] Exam Date: 02/19/2020 0440 FAX #: Reason: megacolon EXAMS: CPT: [id number] XR ABDOMEN 2 V 87384 Fluoro Time: DAP (Gy m2): Air Kerma [...] PAGE 1 Signed Report Name: DORA JOSEPH Donie : 1970 Age/S: 50 / M [address] Unit #: [id number] Loc: [place] [address] Phys: León Robertson MD Acct: [id number] Dis Date: Status: ADM IN PHONE #: [phone] Exam Date: 02/19/2020 0440 FAX #: Reason: megacolon EXAMS: CPT: [id number] XR ABDOMEN 2 V 92888 Fluoro Time: DAP (Gy m2): Air Kerma (mGy): <Continued> Technologist: Carrie Barnett, RT(R)(CT) Trnscb Date/Time: 02/19/2020 (621) GarettAL7 Orig Print D/T:S: 02/19/2020 (0622) PAGE 2 Signed ReportBASIC METABOLIC [id number] 05:52:00 Test Item Value Reference Range Interpretation [...] CA) 8.5 MG/DL 8.5-10.1 N CBC W/AUTO [id number] 05:40:00 Test Item Value Reference Range Interpretation [...] NO DIFF/SCN CRITERIA = MDIFF) BASIC METABOLIC [id number] 06:52:00 Test Item Value Reference Range Interpretation [...] CA) 8.3 MG/DL 8.5-10.1 L CBC W/AUTO [id number] 06:39:00 Test Item Value Reference Range Interpretation [...] DIFF/SCN CRITERIA = MDIFF) Coronavirus 2018 nCoV [id number] 05:35:00 Test Item Value Reference Range Interpretation [...] tent with COVID-19. - XR ABDOMEN 1 [id number] 07:32:00 Name: DORA JOSEPH [facility] : 1970 Age/S: 49 / M [address] Unit #: [id number] Loc: [place] [address] Phys: Jay Mayo MD Acct: [id number] Dis Date: Status: ADM IN PHONE #: [phone] Exam Date: 01/10/2020 0658 FAX #: Reason: follow up colonic ileus EXAMS: CPT: [id number] XR ABDOMEN 1 V 07683 Fluoro Time: DAP (Gy m2): Air Kerma [...] PAGE 1 Signed Report Name: DORA JOSEPH Donie : 1970 Age/S: 49 / M [address] Unit #: [id number] Loc: [place] [address] Phys: Jay Mayo Acct: [id number] Dis Date: Status: ADM IN PHONE #: [phone] Exam Date: 01/10/2020 0658 FAX#: Reason: follow up colonic ileus EXAMS: CPT: [id number] XR ABDOMEN 1 V 75683 Fluoro Time: DAP (Gym2): Air Kerma (mGy): <Continued> Technologist: Bakari De Leon RT(R)(CT) Trnscb Date/Time: 01/10/2020 (731) tDARWINRLisethCB5 Orig Print D/T: S: 01/10/2020 (0736) PAGE 2 Signed ReportCOMPREHENSIVE METABOLIC [id number] 05:56:00 Test Item Value Reference Range Interpretation [...] TOTAL (test code = ALKP) CBC W/AUTO [id number] 05:42:00 Test Item Value Reference Range Interpretation [...] = NO DIFF/SCN CRITERIA MDIFF) BASIC METABOLIC [id number] 06:59:00 Test Item Value Reference Range Interpretation [...] code = CA) 8.5 MG/DL 8.5-10.1 N [id number] 06:59:00 Test Item Value Reference Range Interpretation Comments MAGNESIUM (test code = MAG) 2.2 MG/DL 1.8-2.4 PROTHROMBIN [id number] 06:39:00 Test Item Value Reference Range Interpretation Comments PT PATIENT (test code = PTP) 13.1 SECONDS 9.3-12.9 H INTERNATIONAL NORMAL RATIO 1.16 INR Unit 0.8-1.2 N (test code = INR) CBC W/AUTO [id number] 06:22:00 Test Item Value Reference Range Interpretation [...] DIFF/SCN CRITERIA MDIFF) - XR ABDOMEN 1 [id number] 05:39:00 Name: DORA JOSEPH [facility] : 1970 Age/S: 49 / M [address] Unit #: [id number] Loc: [place] [address] 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 Acct: [id number] Dis Date: Status: ADM IN PHONE #: [phone] Exam Date: 01/09/2020 0507 FAX #: Reason: colonic ileus/obstruction EXAMS: CPT: [id number] XR ABDOMEN 1 V 47188 Fluoro Time: DAP (Gy m2): Air Kerma [...] MD PAGE 1 Signed Report Name: DORA JOSEPHland : 1970 Age/S: 49 / M [address] Unit #: [id number] Loc: [place] [address] 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 Acct: [id number] Dis Date: Status: ADM IN PHONE #: [phone] Exam Date: 01/09/2020522 FAX #: Reason: colonic ileus/obstruction EXAMS: CPT: [id number] XR ABDOMEN 1 V 66731 Fluoro Time: DAP (Gy m2): Air Kerma (mGy): <Continued> Technologist: Carrie Barnett, RT(R)(CT) Trnscb Date/Time: 01/09/2020 (0539) tJUDSONFC Orig Print D/T: S: 01/09/2020 (0542) PAGE 2 Signed ReportCoronavirus 2018 nCoV [id number] 22:38:00 Test Item Value Reference Range Interpretation Comments Coronavirus 2019 nCoV Bedside (test Negative Negative code = [id number]) Emergent procedure? YESCoronavirus 2018 nCoV [id number] 22:38:00 Test Item Value Reference Range Interpretation Comments Coronavirus 2019 nCoV Bedside (test Negative Negative code = [id number]) Emergent procedure? YESBASIC METABOLIC [id number] 18:42:00 Test Item Value Reference Range Interpretation [...] CA) 8.5 MG/DL 8.5-10.1 N CBC W/AUTO [id number] 10:50:00 Test Item Value Reference Range Interpretation [...] = NO DIFF/SCN CRITERIA MDIFF) COMPREHENSIVE METABOLIC [id number] 10:46:00 Test Item Value Reference Range Interpretation [...] 50-136 N TOTAL (test code = ALKP) [id number] 10:46:00 Test Item Value Reference Range Interpretation Comments MAGNESIUM (test code = MAG) 2.6 MG/DL 1.8-2.4 H COMPREHENSIVE METABOLIC [id number] 10:34:00 Test Item Value Reference Range Interpretation [...] TOTAL (test Unit/L 50-136 code = ALKP) [id number] 10:34:00 Test Item Value Reference Range Interpretation Comments MAGNESIUM (test code = MAG) MG/DL 1.8-2.4 - XR ABDOMEN 1 [id number] 08:28:00 Name: DORA JOSEPH [facility] : 1970 Age/S: 49 / M [address] Unit #: [id number] Loc: [place] [address] Phys: Yas Edwards MD Acct: [id number] Dis Date: Status: ADM IN PHONE#: [phone] Exam Date: 01/08/2020 0510 FAX #: Reason: ileus EXAMS: CPT: [id number] XR ABDOMEN 1 P69772 Fluoro Time: DAP (Gy m2): Air Kerma [...] PAGE 1 Signed Report Name: DORA JOSEPH Donie : 1970 Age/S: 49 / M [address] Unit #: [id number] Loc: [place] [address] Phys: Yas Edwards MD Acct: [id number] Dis Date: Status: ADM IN PHONE #: [phone] Exam Date: 01/08/2020509 FAX #: Reason: ileus EXAMS: CPT: [id number] XR ABDOMEN 1 V 93702 Fluoro Time: DAP (Gy m2): Air Kerma (mGy): <Continued> Technologist: Carrie Barnett, RT(R)(CT); ... Trnscb Date/Time: 01/08/2020 (827) t.SDR.JTM Orig Print D/T: S: 01/08/2020 (08) PAGE 2 Signed ReportCOMPREHENSIVE METABOLIC [id number] 07:08:00 Test Item Value Reference Range Interpretation [...] 50-136 L TOTAL (test code = ALKP) [id number] 07:08:00 Test Item Value Reference Range Interpretation Comments MAGNESIUM (test code = MAG) 1.3 MG/DL 1.8-2.4 L COMPREHENSIVE METABOLIC [id number] 05:16:00 Test Item Value Reference Range Interpretation [...] 50-136 L TOTAL (test code = ALKP) [id number] 05:16:00 Test Item Value Reference Range Interpretation Comments MAGNESIUM (test code = MAG) 1.3 MG/DL 1.8-2.4 L CBC W/AUTO [id number] 05:02:00 Test Item Value Reference Range Interpretation [...] (test code = NO DIFF/SCN CRITERIA MDIFF) [id number] 16:51:00 Test Item Value Reference Range Interpretation Comments MAGNESIUM (test code = MAG) 2.3 MG/DL 1.8-2.4 N FE W/TOTAL IRON BINDING CAP.2020-01-07 16:51:00 Test Item Value Reference Range Interpretation Comments SERUM IRON (test code = IRON) 38 mcG/DL 65-175 L TOTAL IRON BINDING CAPACITY (test 322 mcG/DL 250-450 N code = TIBC) IRON SATURATION (test code = 12 % calc 12-57 N FESAT) [id number] 16:51:00 Test Item Value Reference Range Interpretation Comments FERRITIN (test code = DAVID) 17.6 NG/ML 5.0-323.0 N CALCIUM [id number] 16:50:00 Test Item Value Reference Range Interpretation Comments CALCIUM IONIZED (test code = NAVEED) 1.12 mmol/L 1.12-1.32 N - XR ABDOMEN 1 [id number] 10:29:00 Name: DORA JOSEPH [facility] : 1970 Age/S: 49 / M [address] Unit #: [id number] Loc: [place] [address] Phys: Verona Frost PA-C Acct: [id number] Dis Date: Status: ADM IN PHONE #: [phone] Exam Date: 01/07/2020 0712 FAX #: Reason: reassess SBO EXAMS: CPT: [id number] XR ABDOMEN 1 V 71360 Fluoro Time: DAP (Gy m2): Air Kerma [...] [facility] : 1970 Age/S: 49 / M [address] Unit #: [id number] Loc: [place] [address] Phys: Verona Frost PA-C Acct: [id number] Dis Date: Status: ADM IN PHONE #: [phone] Exam Date: 01/07/2020 0712 FAX #: Reason: reassess SBO EXAMS: CPT: [id number] XR ABDOMEN 1 V 93067 Fluoro Time: DAP (Gy m2): Air Kerma (mGy): <Continued> Technologist: Bakari De Leon RT(R)(CT) Trnscb Date/Time: 01/07/2020 (1029) tJUDSONAGV Orig Print D/T: S: 01/07/2020 (1018) PAGE 2 Signed ReportBASIC METABOLIC PANEL 2020-01-07 [...] CA) 5.4 MG/DL 8.5-10.1 LL CBC W/AUTO [id number] 06:49:00 Test Item Value Reference Range Interpretation [...] = NO DIFF/SCN CRITERIA MDIFF) COMPREHENSIVE METABOLIC [id number] 06:10:00 Test Item Value Reference Range Interpretation [...] TOTAL (test code = ALKP) CBC W/AUTO [id number] 05:52:00 Test Item Value Reference Range Interpretation [...] DIFF/SCN CRITERIA MDIFF) - XR ABDOMEN 1 [id number] 01:30:00 Name: DORA JOSEPH [facility] : 1970 Age/S: 49 / M [address] Unit #: [id number] Loc: [place] [address] Phys: Ted Coleman ACADEMIC MANAGER Acct: [id number] Dis Date: Status: ADM INPHONE #: [phone] Exam Date: 01/06/2020 0100 FAX #: Reason: NG Tube Placement Verification EXAMS: CPT: [id number] XR ABDOMEN 1 V 84485 Fluoro Time: DAP (Gy m2): Air Kerma [...] M.D. CC: Mark Perea MD; Ted Coleman ACADEMIC MANAGER PAGE 1 Signed Report Name: DORA JOSEPH [facility] : 1970 Age/S: 49/ M [address] [facility] [address] Unit #: [id number] Loc: [place] [address] Phys: Ted Coleman NP Acct: [id number] Dis Date: Status: ADM IN PHONE #: [phone] Exam Date: 01/06/2020 0100 FAX #: Reason: NG Tube Placement Verification EXAMS: CPT: [id number] XR ABDOMEN 1 V 97555 Fluoro Time: DAP (Gy m2): Air Kerma (mGy): <Continued> Technologist: RT Tatum(R) [facility] Date/Time: 01/06/2020 (129) Herrera Orig Print D/T: S: 01/06/2020 (132) PAGE 2 Signed Report- CT ABD PELVIS W/O [id number] 19:42:00 [place]: St: REG -- Name: DORA JOSEPH [facility] : 1970 Age/S: 49/M [address] [facility] Unit: [id number] Loc: [place]: [place] [address] Acct: [id number] Dis Date: Status: REG ER PHONE #: [phone] Exam Date: 12/13/2019 192 FAX #: [phone] Reason: pain EXAMS: CPT CODE: [id number] CT ABD PELVIS W/O CONT 33030 Examination: CT scan abdomen and pelvis without [...] 12/13/2019 (5 PAGE 1 Signed ReportBASIC METABOLIC [id number] 18:49:00 Test Item Value Reference Range Interpretation [...] code = CA) 8.6 mg/dl 8.0-10.5 N [id number] 18:49:00 Test Item Value Reference Range Interpretation Comments LIPASE (test code = LIP) 97 Units/L 65.0-230.0 N CBC W/AUTO [id number] 18:38:00 Test Item Value Reference Range Interpretation [...] K/mm3 0.0-0.2 N - XR CHEST 1 [id number] 18:36:00 [place]: St: PRE -- Name: DORA JOSEPH [facility] : 1970 Age/S: 49/M [address] [facility] Unit #: [id number] Loc: [place], [place] Phys: [place] [address] Acct: [id number] Dis Date: Status: PRE ER PHONE #: [phone] Exam Date: 12/13/2019 1822 FAX #: [phone] Reason: SOB EXAMS: CPT CODE: [id number] XR CHEST 1 V 19082 Examination: One view chest x-ray Location code: [...] : By: GarettVR5 PAGE 1 Signed Report [place]: St: PRE ------ Name: DORA JOSEPH [facility] : 1970 Age/S: 49/M [address] [facility] Unit #: [id number] Loc: [place]: [place] [address] Acct: [id number] Date: Status: PRE ER PHONE #: [phone] Exam Date: 12/13/2019 1822 FAX #: [phone] Reason: SOB EXAMS: CPT CODE: [id number] XR CHEST 1 V 77779 (Continued) Orig Print D/T: S: 12/13/2019 (183) [...] Received comment: User comments: Slide comments:BASIC METABOLIC [id number] 07:34:00 Test Item Value Reference Range Interpretation [...] S NOT APPLICABLE FOR DIALYSIS PATIEN TS. [id number] 07:26:00 Test Item Value Reference Range Interpretation Comments PHOSPHORUS (BEAKER) (test code = 3.1 mg/dL 2.3-4.7 604) [id number] 07:26:00 Test Item Value Reference Range Interpretation Comments MAGNESIUM (BEAKER) (test code = 1.6 mg/dL 1.6-2.6 627) RAD, ABDOMEN/KUB, 1 VIEW [id number] 07:04:00Reason for exam:->ileusFINAL REPORT Abdomen , one [...] bowel, most suggestive of ileus. Signed: Diony [place] Verified Date/Time: 04/03/2019 07:04:46 Reading Location: [facility] B1 C013X Ortho Consult Reading Room BASIC METABOLIC [id number] 06:47:00 Test Item Value Reference Range Interpretation [...] code = 413) URINALYSIS WITH MICROSCOPIC IF [id number] 22:01:00 Test Item Value Reference Range Interpretation [...] 463) SOURCE(BEAKER) (test code = 2795) URINALYSIS [id number] 22:01:00 Test Item Value Reference Range Interpretation Comments RBC UA (BEAKER) (test code = 519) 18 /HPF WBC UA (BEAKER) (test code = 520) 1 /HPF CALCIUM OXALATE CRYSTALS (BEAKER) Occasional (test code = 518) [id number] 05:49:00 Test Item Value Reference Range Interpretation Comments PHOSPHORUS (BEAKER) (test code = 2.5 mg/dL 2.3-4.7 604) [id number] 05:49:00 Test Item Value Reference Range Interpretation Comments MAGNESIUM (BEAKER) (test code = 1.7 mg/dL 1.6-2.6 627) BASIC METABOLIC [id number] 05:49:00 Test Item Value Reference Range Interpretation [...] (BEAKER) (test code = 413) BASIC METABOLIC [id number] 06:19:00 Test Item Value Reference Range Interpretation [...] S NOT APPLICABLE FOR DIALYSIS PATIEN TS. [id number] 06:10:00 Test Item Value Reference Range Interpretation Comments MAGNESIUM (BEAKER) 1.8 mg/dL 1.6-2.6 Specimen slightly (test code = 627) hemolyzed [id number] 06:10:00 Test Item Value Reference Range Interpretation [...] (BEAKER) (test code = 413) BASIC METABOLIC [id number] 04:57:00 Test Item Value Reference Range Interpretation [...] S NOT APPLICABLE FOR DIALYSIS PATIEN TS. [id number] 04:55:00 Test Item Value Reference Range Interpretation Comments PHOSPHORUS (BEAKER) (test code = 2.6 mg/dL 2.3-4.7 604) [id number] 04:55:00 Test Item Value Reference Range Interpretation Comments MAGNESIUM (BEAKER) (test code = 1.8 mg/dL 1.6-2.6 627) CT, [id number] 14:16:00FINAL REPORT TECHNIQUE: CT of the abdomen [...] Kim MDReport Verified Date/Time: 03/29/2019 14:16:01Reading Location: [facility] C013Y CT Body Reading Room , ABDOMEN/KUB, 1 VIEW [id number] 10:23:00Reason for exam:->evaluate ileusFINAL REPORT Technique: Supine [...] Date/Time: 03/29/2019 10:23:29 Reading Location: [facility] Reading Room CBC (HEMOGRAM ONLY)2019-03-29 08:10:00 [...] WBC 0-0 (BEAKER) (test code = 413) [id number] 06:20:00 Test Item Value Reference Range Interpretation Comments PHOSPHORUS (BEAKER) (test code = 2.6 mg/dL 2.3-4.7 604) [id number] 06:20:00 Test Item Value Reference Range Interpretation Comments MAGNESIUM (BEAKER) (test code = 2.0 mg/dL 1.6-2.6 627) BASIC METABOLIC [id number] 06:20:00 Test Item Value Reference Range Interpretation [...] TS. RAD, ABDOMEN SERIES W/ UPRIGHT PA [id number] 22:18:00Reason for exam:- >eval ileusFINAL REPORT CLINICAL [...] evaluation with CT abdomen pelvis. Signed: [facility] Verified Date/Time: 03/28/2019 22:18:50 RAD, ABDOMEN/KUB, 1 VIEW [id number] 11:23:00Reason for exam:->abdominal distensionShould this be performed [...] MDReport Verified Date/Time: 03/28/2019 11:23:34 Reading Location: [facility] Radiology Reading Room TISSUE [id number] 09:00:00Surgical Pathology Report Case: [id number] Authorizing Provider: Graciela Garrison MD Collected: 03/25/2019 1133 Ordering Location: [facility] PERIOPERATIVE Received: 03/25/2019 1527 SERVICES Pathologist: Jordan [...] FOR MALIGNANCY Signing Pathologist Direct Phone Line: [phone] signed by Chiara Celaya MD on 03/28/2019 at 9:00 [id number] and postop diagnosis: ileostomy statusA. End ileostomy; [...] nodes are not identified in the mesentery. Seaming Inspector sections are submitted. Section code: A, phlebotomy services representative section of each end of first mentioned segment of small bowel; A2, phlebotomy services representative of first mentioned segment of small bowel mucosa; A3, area of hemorrhagic mesentery of second mentioned segment of mucosa; A4, phlebotomy services representative of hemorrhagicmucosa at open end of second portion of small bowel; A5, phlebotomy services representative of stapled margin from second [...] 0.2 cm. No gross lesions are identified. Seaming Inspector sections are submitted. Section code: B1, proximal margin en face and tip; B2, phlebotomy services representative cross section. CG/pl Performed.[id number] 06:23:00 Test Item Value Reference Range Interpretation Comments PHOSPHORUS (BEAKER) (test code = 2.7 mg/dL 2.3-4.7 604) [id number] 06:23:00 Test Item Value Reference Range Interpretation Comments MAGNESIUM (BEAKER) (test code = 1.9 mg/dL 1.6-2.6 627) BASIC METABOLIC [id number] 06:23:00 Test Item Value Reference Range Interpretation [...] S NOT APPLICABLE FOR DIALYSIS PATIEN TS. [id number] 08:20:00 Test Item Value Reference Range Interpretation Comments PHOSPHORUS (BEAKER) (test code = 2.6 mg/dL 2.3-4.7 604) [id number] 08:20:00 Test Item Value Reference Range Interpretation Comments MAGNESIUM (BEAKER) (test code = 1.8 mg/dL 1.6-2.6 627) BASIC METABOLIC [id number] 08:20:00 Test Item Value Reference Range Interpretation [...] S NOT APPLICABLE FOR DIALYSIS PATIEN TS. [id number] 06:06:00 Test Item Value Reference Range Interpretation Comments PHOSPHORUS (BEAKER) (test code = 4.1 mg/dL 2.3-4.7 604) [id number] 06:06:00 Test Item Value Reference Range Interpretation Comments MAGNESIUM (BEAKER) (test code = 1.8 mg/dL 1.6-2.6 627) BASIC METABOLIC [id number] 06:06:00 Test Item Value Reference Range Interpretation [...] S NOT APPLICABLE FOR DIALYSIS PATIEN TS. [id number] 06:03:00 Test Item Value Reference Range Interpretation Comments PHOSPHORUS (BEAKER) (test code = 4.2 mg/dL 2.3-4.7 604) [id number] 06:03:00 Test Item Value Reference Range Interpretation Comments MAGNESIUM (BEAKER) (test code = 2.0 mg/dL 1.6-2.6 627) BASIC METABOLIC [id number] 06:03:00 Test Item Value Reference Range Interpretation [...] WBC 0-0 (BEAKER) (test code = 413) [id number] 05:52:00 Test Item Value Reference Range Interpretation Comments PHOSPHORUS (BEAKER) (test code = 4.2 mg/dL 2.3-4.7 604) [id number] 05:52:00 Test Item Value Reference Range Interpretation Comments MAGNESIUM (BEAKER) (test code = 1.9 mg/dL 1.6-2.6 627) BASIC METABOLIC [id number] 05:52:00 Test Item Value Reference Range Interpretation [...] S NOT APPLICABLE FOR DIALYSIS PATIEN TS. [id number] 06:51:00 Test Item Value Reference Range Interpretation Comments PHOSPHORUS (BEAKER) (test code = 4.3 mg/dL 2.3-4.7 604) [id number] 06:51:00 Test Item Value Reference Range Interpretation Comments MAGNESIUM (BEAKER) (test code = 2.0 mg/dL 1.6-2.6 627) BASIC METABOLIC [id number] 06:51:00 Test Item Value Reference Range Interpretation [...] 0-0 (BEAKER) (test code = 413) TISSUE [id number] 11:50:00Surgical Pathology Report Case: [id number] Authorizing Provider: Mela Larson MD Collected: 03/18/2019 1827 Ordering Location: [facility] PERIOPERATIVE Received: 03/21/2019 0823 SERVICES Pathologist: Jordan Celaya MD Specimen: Small Bowel, NOS A. SMALL BOWEL, ILEOSTOMY PROLAPSE, TAKEDOWN: - ANASTOMOSIS SITE WITH ACTIVE CHRONIC INFLAMMATION AND FOCAL ISCHEMIC CHANGES - MUCOSAL RESECTION MARGINS, NEGATIVE FOR MALIGNANCY - ONE BENIGN LYMPH NODE (0/1) - NEGATIVE FOR DYSPLASIA OR MALIGNANCYSigning Pathologist Direct Phone Line: [phone] signed by Jordan Celaya MDon 03/22/2019 at 11:50 [id number] of ileostomyReceived in a container labeled "small [...] 0.5 to 1.2 cm in greatest dimension. Seaming Inspector sections are submitted as follows: A1-A2, mucosal resection margin, en face; A3-A6, phlebotomy services representative sections of the possible ostomy stump; A7-A11, serial phlebotomy services representative sections from mucosal resection margin to the possible ostomy stump; A12, two lymph nodes. TH/plPerformed.[id number] 06:58:00 Test Item Value Reference Range Interpretation Comments PHOSPHORUS (BEAKER) (test code = 3.8 mg/dL 2.3-4.7 604) [id number] 06:58:00 Test Item Value Reference Range Interpretation Comments MAGNESIUM (BEAKER) (test code = 2.0 mg/dL 1.6-2.6 627) BASIC METABOLIC [id number] 06:58:00 Test Item Value Reference Range Interpretation [...] PATIEN TS. CBC W/PLT COUNT & AUTO [id number] 05:42:00 Test Item Value Reference Range Interpretation [...] PERCENT (BEAKER) (test code = 2801) ALTHEA [id number] 17:42:00Reason for exam:->evaluate for colon stricture as [...] [place] Verified Date/Time: 03/21/2019 17:42:21 Reading Location: [address] Consult Reading Room [id number] 03:58:00 Test Item Value Reference Range Interpretation Comments PHOSPHORUS (BEAKER) (test code = 3.0 mg/dL 2.3-4.7 604) [id number] 03:58:00 Test Item Value Reference Range Interpretation Comments MAGNESIUM (BEAKER) (test code = 2.0 mg/dL 1.6-2.6 627) BASIC METABOLIC [id number] 03:58:00 Test Item Value Reference Range Interpretation Comments SODIUM (BEAKER) 137 meq/L 136-145 (test code = 381) POTASSIUM (BEAKER) 4.0 meq/L 3.5-5.1 (test code = 379) CHLORIDE (BEAKER) 104 meq/L 98-107 (test code = 382) CO2 (BEAKER) (test 29 meq/L -29 code = 355) BLOOD UREA NITROGEN 10 [...] PATIEN TS. CBC W/PLT COUNT & AUTO [id number] 03:20:00 Test Item Value Reference Range Interpretation [...] (BEAKER) (test code = 2801) BASIC METABOLIC [id number] 06:26:00 Test Item Value Reference Range Interpretation [...] S NOT APPLICABLE FOR DIALYSIS PATIEN TS. [id number] 06:05:00 Test Item Value Reference Range Interpretation Comments PHOSPHORUS (BEAKER) (test code = 2.2 mg/dL 2.3-4.7 L 604) [id number] 06:05:00 Test Item Value Reference Range Interpretation Comments MAGNESIUM (BEAKER) (test code = 2.0 mg/dL 1.6-2.6 627) CBC W/PLT COUNT & AUTO [id number] 05:25:00 Test Item Value Reference Range Interpretation [...] 0-1 PERCENT (BEAKER) (test code = 2801) [id number] 04:31:00 Test Item Value Reference Range Interpretation Comments PHOSPHORUS (BEAKER) (test code = 3.7 mg/dL 2.3-4.7 604) [id number] 04:31:00 Test Item Value Reference Range Interpretation Comments MAGNESIUM (BEAKER) (test code = 1.9 mg/dL 1.6-2.6 627) BASIC METABOLIC [id number] 04:31:00 Test Item Value Reference Range Interpretation [...] PATIEN TS. CBC W/PLT COUNT & AUTO [id number] 04:15:00 Test Item Value Reference Range Interpretation [...] 0-1 PERCENT (BEAKER) (test code = 2801) [id number] 06:41:00 Test Item Value Reference Range Interpretation Comments PHOSPHORUS (BEAKER) (test code = 3.1 mg/dL 2.3-4.7 604) [id number] 06:41:00 Test Item Value Reference Range Interpretation Comments MAGNESIUM (BEAKER) (test code = 1.9 mg/dL 1.6-2.6 627) BASIC METABOLIC [id number] 06:41:00 Test Item Value Reference Range Interpretation [...] PATIEN TS. CBC W/PLT COUNT & AUTO [id number] 06:36:00 Test Item Value Reference Range Interpretation [...] PERCENT (BEAKER) (test code = 2801) CT, [id number] 17:04:00No PO contrastFINAL REPORT ABDOMINAL AND PELVIS [...] MDReport Verified Date/Time: 03/17/2019 17:04:19 Reading Location: [facility] B1 C013Y CT Body Reading Room XR ABDOMEN 2 [id number] 09:03:45XR ABDOMEN 2 VIEWSLOCATION: [id number]: Colstomy ProlapseCOMPARISON: Chest radiograph 04/15/2017, CT of [...] Nonspecific, nonobstructive bowel gas pattern.XR CHEST 1 [id number] 11:32:15EXAM: CHEST ONE VIEWINDICATION: Chest painCOMPARISON: None availableTECHNIQUE: AP view of the chest.FINDINGS: The cardiomediastinal silhouette is normal. The lungs are clearbilaterally. No pneumothoraxor pleural effusion is identified. Theosseous structures are unremarkable.IMPRESSION: No acute cardiopulmonary process.LOCATION: [id number] Type and [id number] 21:21:00 Test Item Value Reference Range Interpretation Comments ABO type (test code = ABO) O Rh Type (test code = RH) Positive Comprehensive Metabolic [id number] 20:36:00 Test Item Value Reference Range Interpretation [...] the National Kid[employer] Foundation,http ://nkd ep.nih.gov Alcohol/Ethanol, [id number] 20:36:00 Test Item Value Reference Range Interpretation Comments Alcohol, Ethyl <0.01 g/dL 0.00-0.01 N Intoxicated 0 .080 g/dL (test code = ETOH) or more Prothrombin [id number] 20:00:00 Test Item Value Reference Range Interpretation Comments PT (test code = PT) 10.10 seconds 9.78-13.35 N INR (test code = INR) 0.88 Ratio 0.6-1.2 N Partial Thromboplastin [id number] 20:00:00 Test Item Value Reference Range Interpretation Comments aPTT (test code = PTT) 31.50 seconds 24.39-37.25 N CBC with [id number] 19:50:00 Test Item Value Reference Range Interpretation [...] code = ALYMPH) 2.2 K/cumm 0.5-4.6 N [place] Abs (test code = AMONO) 0.4 K/cumm 0.0-1.2 N Eos Abs (test code = AEOS) 0.17 K/cumm 0.00-0.74 N Baso Abs (test code = ABASO) 0.0 K/cumm 0.00-0.21 N 13392& PELVIS W/O [id number] 17:36:28CT ABDOMEN AND PELVIS WITHOUT CONTRAST.CLINICAL HISTORY: [...]
[2022-09-03 15:58] LABS: Absolute Lymphocytes (CBC) 1.5 K/uL (0.7-4.9); Hematocrit 42.5 % (39.6-49.0); Lymphocytes % 11.3 % (15.3-44.8); MCV 86.1 fL (80-100); MPV 7.2 fL (7.6-11.3); RBC Red Blood Cell Count 4.94 M/uL (4.33-5.43)
[2022-09-03] MEDS ORDERED: MORPHINE 4 MG/ML SYR ONE (16:02)
[2022-09-03] MEDS ORDERED: ONDANSETRON 4 MG/2 ML VIAL ONE (16:02)
[2022-09-03] MEDS ORDERED: NA CHLORIDE 0.9% 1,000 ML ONE ×2 (16:03→22:32)
[2022-09-03 16:34] LABS: Albumin 3.5 g/dL (3.4-5.0); Bilirubin Total 0.3 mg/dL (0.2-1.0); Potassium 4.2 mmol/L (3.5-5.1); Protein, Total 8.4 g/dL (6.4-8.2)
--- NOTE | 2022-09-03 17:38 | EDPHYS ---
[facility] Name: Rico Mcneill Age: 52 yrs Sex: Male : 1970 Arrival Date: 09/03/2022 Time: 14:48 Bed 20 Private MD: ED Physician Nimisha Hicks HPI: 09/03 17:16 This 52 yrs old Male presents to ER via EMS with complaints of Vomiting, Pain All Over. sp3 17:16 52-year-old male with a history of ileostomy, prior hyponatremia presents with chief sp3 complaint vomiting for 3 days and diffuse abdominal pain consistent with his prior episodes. Denies fever, cough, congestion, URI symptoms, back pain, chest pain, shortness of breath, diarrhea, rash, body cramps, known sick contacts, travel history, any other aspect of ROS at this time. Patient is unfortunately [place] No other symptoms at this time his ileostomy is functioning correctly and he has a clean bag on it.. Historical: - Allergies: 15:30 NKDA; aa5 - PMHx: 15:30 ileostomy; aa5 - PSHx: 15:30 Small bowel resection with ileostomy; aa5 - Immunization history:: Adult Immunizations unknown. - Social history:: Smoking status: Patient reports use of chewing tobacco. ROS: 17:20 Constitutional: Negative for fever, chills, and weight loss, Eyes: Negative for injury, sp3 pain, redness, and discharge, Neck: Negative for injury, pain, and swelling, Cardiovascular: Negative for chest pain, palpitations, and edema, Respiratory: Negative for shortness of breath, cough, wheezing, and pleuritic chest pain, Back: Negative for injury and pain, MS/Extremity: Negative for injury and deformity, Skin: Negative for injury, rash, and discoloration, Neuro: Negative for headache, weakness, numbness, tingling, and seizure, Psych: Negative for depression, anxiety, suicide ideation, homicidal ideation, and hallucinations, Allergy/Immunology: Negative for hives, rash, and allergies, Endocrine: Negative for neck swelling, polydipsia, polyuria, polyphagia, and marked weight changes. 17:20 All other systems are negative. Exam: 17:21 Constitutional: This is a well developed, well nourished patient who is awake, alert, sp3 and in no acute distress. Neck: Trachea midline, no thyromegaly or masses palpated, and no cervical lymphadenopathy. Supple, full range of motion without nuchal rigidity, or vertebral point tenderness. No Meningismus. Chest/axilla: Normal chest wall appearance and motion. Nontender with no deformity. No lesions are appreciated. Cardiovascular: Regular rate and rhythm with a normal S1 and S2. No gallops, murmurs, or rubs. Normal PMI, no JVD. No pulse deficits. Respiratory: Lungs have equal breath sounds bilaterally, clear to auscultation and percussion. No rales, rhonchi or wheezes noted. No increased work of breathing, no retractions or nasal flaring. Back: No spinal tenderness. No costovertebral tenderness. Full range of motion. Skin: Warm, dry with normal turgor. Normal color with no rashes, no lesions, and no evidence of cellulitis. MS/ Extremity: Pulses equal, no cyanosis. Neurovascular intact. Full, normal range of motion. Neuro: Awake and alert, GCS 15, oriented to person, place, time, and situation. Cranial nerves II-XII grossly intact. Motor strength 5/5 in all extremities. Sensory grossly intact. Cerebellar exam normal. Normal gait. Psych: Awake, alert, with orientation to person, place and time. Behavior, mood, and affect are within normal limits. 17:21 Abdomen/GI: Mild diffuse crampy abdominal pain without any peritoneal signs, rebound or guarding. Ostomy is functioning correctly with stool in the bag and is pink in nature. No dark stool or bleeding noted.. Vital Signs: 14:52 BP 101 / 68; aa5 15:27 BP 78 / 54; Pulse 101; Resp 16 S; Temp 97.9(TE); Pulse Ox 99% on R/A; Weight 65.77 kg aa5 (R); Height 6 ft. 1 in. (185.42 cm) (R); 15:33 BP 83 / 35; aa5 17:00 BP 82 / 63; Pulse 83; Resp 17; Pulse Ox 99% on R/A; kr3 18:01 BP 96 / 62; Pulse 79; Resp 17; Pulse Ox 98% on R/A; kr3 19:39 BP 90 / 60; Pulse 91; Resp 20 S; Pulse Ox 99% on R/A; aa9 09/04 01:00 BP 86 / 64; Pulse 85; Resp 20; Pulse Ox 99% on R/A; aa9 09/03 15:27 Body Mass Index 19.13 (65.77 kg, 185.42 cm) aa5 MDM: 09/03 15:43 Patient medically screened. sp3 17:23 Data reviewed: vital signs, nurses notes. ED course: 52-year-old male with dehydration, sp3 vomiting and now hyponatremia of 123. Patient also has hemoconcentration on his cell counts as well as elevated BUN/creatinine. We will continue to give him IV fluids and supportive care as needed. Patient to be admitted 23 observation for further treatment and rechecking his laboratory values in the morning. Patient does not parentally have an infection at this time and antibiotics not indicated. Abdomen remains benign.. 09/03 15:37 Order name: CBC with Diff 3 09/03 15:37 Order name: CMP; Complete Time: 16:41 3 09/03 15:37 Order name: Lipase; Complete Time: 16:41 3 09/03 15:37 Order name: Urine Microscopic Only 3 09/03 16:44 Order name: Lactate w/ 2H reflex if indic. sp3 09/03 16:44 Order name: COVID-19/FLU A+B 3 09/03 18:07 Order name: Manual Differential EDMS 09/03 18:12 Order name: CBC with Automated Diff EDMS 09/03 18:12 Order name: CBC with Automated Diff EDMS 09/03 18:12 Order name: Comprehensive Metabolic Panel EDMS 09/03 18:12 Order name: Comprehensive Metabolic Panel EDMS 09/03 22:39 Order name: Urine Dipstick-Ancillary EDMS 09/03 15:37 Order name: IV Saline Lock; Complete Time: 15:58 3 09/03 15:37 Order name: Labs collected and sent; Complete Time: 15:58 3 09/03 15:37 Order name: Urine Dipstick-Ancillary (obtain specimen); Complete Time: 22:38 3 09/03 18:12 Order name: Regular EDMS Administered Medications: 16:11 Drug: NS 0.9% 1000 ml Route: IV; Rate: 1 bolus; Site: right antecubital; kr3 19:38 Follow up: Response: No adverse reaction; IV Status: Completed infusion; IV Intake: aa9 1000ml 16:11 Drug: Zofran (Ondansetron) 4 mg Route: IVP; Site: right antecubital; kr3 16:11 Drug: morphine 4 mg Route: IVP; Infused Over: 4 mins; Site: right antecubital; kr3 18:11 Drug: NS 0.45 % 1000 ml Route: IV; Rate: 125 ml/hr; Site: right antecubital; kr3 19:38 Follow up: Response: No adverse reaction; IV Status: Infusion continued aa9 22:27 Follow up: Response: No adverse reaction; IV Status: Order to discontinue infusion; IV aa9 Intake: 500ml ; [employer] order NS 0.9 \T\100ml/hr Disposition Summary: 09/03/22 17:38 Hospitalization Ordered Hospitalization Status: Observation sp3 Provider: Cindy Chapa sp3 Condition: Stable sp3 Problem: an acute exacerbation sp3 Symptoms: have worsened sp3 Bed/Room Type: Standard sp3 Location: Telemetry/MedSurg (observation)(09/04/22 00:55) cg Room Assignment: [place](09/04/22 00:55) Diagnosis - Dehydration, hyponatremia, ALMA sp3 Forms: - Medication Reconciliation Form sp3 - SBAR form sp3 Signatures: Dispatcher [employer] Julissa Clark RN RN aa5 Annia Blas RN RN cg Nimisha Hicks MD MD sp3 Leighann Pelaez RN RN kr3 Jacqueline Stark RN aa9 Corrections: (The following items were deleted from the chart) 23:48 17:38 Telemetry/MedSurg (observation) sp3 cg 23:48 17:38 sp3 cg 09/04 00:55 09/03 23:[address] [facility] ER HOLD cg cg 09/04 00:55 09/03 23:48 ERHOLD- cg cg
--- NOTE | 2022-09-03 17:38 | ER ---
Nurse's Notes [facility] Name: Rico Mcneill Age: 52 yrs Sex: Male : 1970 Arrival Date: 09/03/2022 Time: 14:48 Bed 20 Private MD: Diagnosis: Dehydration, hyponatremia, ALMA Presentation: 09/03 14:52 Chief complaint: EMS states: hot flashes, chills. Pt reports nausea and cough. Reports aa5 feeling "disoriented". Pt A\\T\\O x 4 during triage. 15:27 Onset of symptoms was August 2022. aa5 15:27 Coronavirus screen: chills, cough unrelated to allergies. Ebola Screen: Patient denies aa5 travel to an Ebola-affected area in the 21 days before illness onset. Initial Sepsis Screen: Does the patient meet any 2 criteria? Systolic BP < 90 mmHg. HR > 90 bpm. Does the patient have a suspected source of infection? Yes:. Risk Assessment: Do you want to hurt yourself or someone else? Patient reports no desire to harm self or others. 15:27 Acuity: OCTAVIO 2 aa5 15:27 Method Of Arrival: EMS: [facility] aa5 Triage Assessment: 09/04 01:05 GI: Reports. aa9 Historical: - Allergies: 09/03 15:30 NKDA; aa5 - PMHx: 15:30 ileostomy; aa5 - PSHx: 15:30 Small bowel resection with ileostomy; aa5 - Immunization history:: Adult Immunizations unknown. - Social history:: Smoking status: Patient reports use of chewing tobacco. Screenin/12 01:04 [facility] ED Fall Risk Assessment (Adult) History of falling in the last 3 months, aa9 including since admission No falls in past 3 months (0 pts) Confusion or Disorientation No (0 pts) Intoxicated or Sedated No (0 pts) Impaired Gait No (0 pts) Mobility Assist Device Used No (0 pt) Altered Elimination No (0 pt) Score/Fall Risk Level 0 - 2 = Low Risk. Abuse screen: Denies threats or abuse. Denies injuries from another. Nutritional screening: No deficits noted. Tuberculosis screening: No symptoms or risk factors identified. Assessment: 09/03 15:55 General: Appears in no apparent distress. comfortable, Behavior is calm, cooperative, kr3 appropriate for age. Pain: Denies pain. Neuro: Level of Consciousness is awake, alert, obeys commands, Oriented to person, place, time, situation. Cardiovascular: Patient's skin is warm and dry. Respiratory: Airway is patent Respiratory effort is even, unlabored, Respiratory pattern is regular, symmetrical. GI: Abdomen is has stoma that is prolapsed. : No signs and/or symptoms were reported regarding the genitourinary system. EENT: No signs and/or symptoms were reported regarding the EENT system. Derm: No signs and/or symptoms reported regarding the dermatologic system. Musculoskeletal: Range of motion: intact in all extremities. 16:55 Reassessment: Patient appears in no apparent distress at this time. Patient and/or kr3 family updated on plan of care and expected duration. Pain level reassessed. Patient is alert, oriented x 3, equal unlabored respirations, skin warm/dry/pink. 17:57 Reassessment: Patient appears in no apparent distress at this time. Patient and/or kr3 family updated on plan of care and expected duration. Pain level reassessed. Patient is alert, oriented x 3, equal unlabored respirations, skin warm/dry/pink. 09/04 01:24 Reassessment: Patient appears in no apparent distress at this time. Patient and/or aa9 family updated on plan of care and expected duration. Pain level reassessed. Patient is alert, oriented x 3, equal unlabored respirations, skin warm/dry/pink. report called to receiving nurse. Vital Signs: 09/03 14:52 BP 101 / 68; aa5 15:27 BP 78 / 54; Pulse 101; Resp 16 S; Temp 97.9(TE); Pulse Ox 99% on R/A; Weight 65.77 kg aa5 (R); Height 6 ft. 1 in. (185.42 cm) (R); 15:33 BP 83 / 35; aa5 17:00 BP 82 / 63; Pulse 83; Resp 17; Pulse Ox 99% on R/A; kr3 18:01 BP 96 / 62; Pulse 79; Resp 17; Pulse Ox 98% on R/A; kr3 19:39 BP 90 / 60; Pulse 91; Resp 20 S; Pulse Ox 99% on R/A; aa9 09/04 01:00 BP 86 / 64; Pulse 85; Resp 20; Pulse Ox 99% on R/A; aa9 09/03 15:27 Body Mass Index 19.13 (65.77 kg, 185.42 cm) aa5 ED Course: 09/03 14:48 Patient arrived in ED. as 14:52 Arm band placed on. aa5 15:29 Triage completed. aa5 15:33 Nimisha Hicks MD is Attending Physician. sp3 15:58 Leighann Pelaez RN is Primary Nurse. kr3 15:58 Inserted saline lock: 22 gauge in right antecubital area, using aseptic technique. kr3 Blood collected. 17:37 Cindy Chapa MD is Hospitalizing Provider. sp3 18:44 Inserted saline lock: 20 gauge in right hand, using aseptic technique. Blood collected. em1 IV discontinued, intact, bleeding controlled, No redness/swelling at site. Pressure dressing applied, 22g IV dc'd. 09/04 01:05 Patient has correct armband on for positive identification. Call light in reach. Side aa9 rails up X2. 01:05 No provider procedures requiring assistance completed. aa9 01:05 Patient admitted, IV remains in place. aa9 Administered Medications: 09/03 16:11 Drug: NS 0.9% 1000 ml Route: IV; Rate: 1 bolus; Site: right antecubital; kr3 19:38 Follow up: Response: No adverse reaction; IV Status: Completed infusion; IV Intake: aa9 1000ml 16:11 Drug: Zofran (Ondansetron) 4 mg Route: IVP; Site: right antecubital; kr3 16:11 Drug: morphine 4 mg Route: IVP; Infused Over: 4 mins; Site: right antecubital; kr3 18:11 Drug: NS 0.45 % 1000 ml Route: IV; Rate: 125 ml/hr; Site: right antecubital; kr3 19:38 Follow up: Response: No adverse reaction; IV Status: Infusion continued aa9 22:27 Follow up: Response: No adverse reaction; IV Status: Order to discontinue infusion; IV aa9 Intake: 500ml ; [employer] order NS 0.9 \\T\\100ml/hr Medication: 09/04 01:05 VIS not applicable for this client. aa9 Intake: 09/03 19:38 IV: 1000ml; Total: 1000ml. aa9 22:27 IV: 500ml; Total: 1500ml. aa9 Outcome: 17:38 Decision to Hospitalize by Provider. sp3 09/04 01:04 Admitted to Med/surg accompanied by tech, with chart. aa9 Condition: stable Instructed on the need for admit. 02:21 Patient left the ED. aa9 Signatures: Clover Diaz Eric em1 Julissa Roy RN RN aa5 Nimisha Hicks MD MD sp3 Jacqueline Stark RN RN aa9 Leighann Pelaez RN RN kr3 Corrections: (The following items were deleted from the chart) 09/03 15:28 14:52 Chief complaint: EMS states: hot flashes, chills aa5 aa5 15:29 15:27 Onset of symptoms was August 2022 aa5 aa5 15:30 15:27 BP 78 / 54; aa5 aa5 18:01 17:57 General: Appears in no apparent distress. comfortable, Behavior is calm, kr3 cooperative, appropriate for age, kr3 18: 17:57 Pain: Denies pain. kr3 kr3 18:01 17:57 Neuro: Level of Consciousness is awake, alert, obeys commands, Oriented to kr3 person, place, time, situation, kr3 18: 17:57 Cardiovascular: Patient's skin is warm and dry. kr3 kr3 18:01 17:57 Respiratory: Airway is patent Respiratory effort is even, unlabored, Respiratory kr3 pattern is regular, symmetrical, kr3 18:01 17:57 GI: Abdomen is has stoma that is prolapsed kr3 kr3 18:01 17:57 : No signs and/or symptoms were reported regarding the genitourinary system. kr3kr3 18:01 17:57 EENT: No signs and/or symptoms were reported regarding the EENT system. kr3 kr3 18:01 17:57 Derm: No signs and/or symptoms reported regarding the dermatologic system. kr3 kr3 18:01 17:57 Musculoskeletal: Range of motion: intact in all extremities, kr3 kr3
[2022-09-03 18:06] LABS: Anisocytosis 1+; Blood Morphology Comment NOTED (NOT SEEN); Platelet Estimate ADEQ; Poikilocytosis 1+
[2022-09-03] MEDS ORDERED: ACETAMINOPHEN 500 MG TAB PO PRN (18:08)
--- NOTE | 2022-09-03 18:08 | P.HP ---
Certification for Inpatient Patient admitted to: Inpatient With expected LOS: >2 Midnights Patient will require the following post-hospital care: None Practitioner: I am a practitioner with admitting privileges, knowledge of patient current condition, hospital course, and medical plan of care. Services: Services provided to patient in accordance with Admission requirements found in Title 42 Section 412.3 of the Code of Federal Regulations Patient History Date of Service: 09/03/22 Reason for admission: Acute renal failure History of Present Illness: Patient is a 52-year-old gentleman who is well-known to us from multiple admissions in the past. He is homeless and sometimes he gets really dehydrated. He has a ileostomy which he normally gets his supplies from our hospital. He has noticed that his output from the ileostomy has gotten darker. He also urinates a couple of times every couple of days. He has noticed that his urine also is very dark. He has been doing the same routine that he normally has. He walks around [place] as he is homeless. He tends to eat what ever is presented to him. Patient was admitted to the hospital for acute renal failure. His creatinine is 3 times what it normally is. He is also hyponatremic and with a metabolic acidosis. Patient will be admitted to the hospital for aggressive IV hydration. Anticipate discharge home in 48 to 72 hours. Allergies No Known Drug Allergies Allergy (Verified 09/09/16 22:36) Unknown Home Medications: NK [No Home Meds] 05/11/22 - Past Medical/Surgical History Diabetic: No -: Hypothyroidism -: Bipolar Disorder -: HTN -: bowel obstruction -: Colectomy -: Ileostomy Psychosocial/ Personal History: Patient is homeless. - Family History Father Medical History: Cancer Mother Medical History: Heart disease - Social History Smoking Status: Former smoker Alcohol use: No CD- Drugs: No Caffeine use: Yes Review of Systems 10-point ROS is otherwise unremarkable Physical Examination - Vital Signs Temperature: 98 F Blood Pressure: 100/60 Pulse: 99 Respirations: 22 Pulse Ox (%): 99 - Physical Exam General: Alert, In no apparent distress, Oriented x3 HEENT: Atraumatic, PERRLA, Mucous membr. moist/pink, EOMI, Sclerae nonicteric Neck: Supple, 2+ carotid pulse no bruit, No LAD, Without JVD or thyroid abnormality Respiratory: Clear to auscultation bilaterally, Normal air movement Cardiovascular: Regular rate/rhythm, Normal S1 S2 Gastrointestinal: Normal bowel sounds, Soft and benign, Non-distended, No tenderness, Other (Patient with a ileostomy) Musculoskeletal: No clubbing, No swelling, No tenderness Integumentary: No rashes Neurological: Normal gait, Normal speech, Normal strength at 5/5 x4 extr, Normal tone, Sensation intact, Cranial nerves 3-12 intact, Normal affect Lymphatics: No axilla or inguinal lymphadenopathy - Studies Laboratory Data (last 24 hrs) 09/03/22 15:47: Sodium 123 L, Potassium 4.2, BUN 55 H, Creatinine 3.23 H, Glucose 122 H, Total Bilirubin 0.3, AST 15, ALT 30, Alkaline Phosphatase 105, Lipase 263 09/03/22 15:47: WBC 13.20 H, Hgb 14.2, Hct 42.5, Plt Count 429 H Assessment & Plan - Problems (Diagnosis) (1) Acute kidney injury Current Visit: Yes Status: Acute (2) Hyponatremia Current Visit: Yes Status: Acute (3) Metabolic acidosis Current Visit: Yes Status: Acute (4) History of ileostomy Current Visit: Yes Status: Acute (5) Bipolar 1 disorder, depressed Onset Date: 02/04/18 Current Visit: No Status: Chronic - Plan Plan: 1. Aggressive IV hydration 2. Repeat labs in the morning 3. IV antibiotics 4. Diet as tolerated 5. UA with microscopy 6. GI DVT prophylaxis Discharge Plan: Home Plan to discharge in: Greater than 2 days - Advance Directives Does patient have a Living Will: No Does patient have a Durable POA for Healthcare: No - Code Status/Comfort Care Code Status Assessed: Yes Code Status: Full Code Critical Care: No Time Spent Managing PTS Care (In Minutes): 45
[2022-09-03] MEDS ORDERED: NACHLORIDE 0.45% 1,000 ML IV ONE (18:12)
[2022-09-03] MEDS: NA CHLORIDE 0.9% 1,000 ML IV SCH (19:00)
[2022-09-03 19:19] LABS: SARS-COV-2 RT PCR NEGATIVE (NEGATIVE)
[2022-09-03 22:39] LABS: Urine Blood Trace-intact (Negative); Urine Glucose Negative (Negative); Urine Protein 1+ (Negative); Urine Specific Gravity >=1.030 (1.005-1.030)
[2022-09-03] MEDS ORDERED: ACETAMINOPHEN 325 MG TABLET ONE (22:42)
[2022-09-03 22:55] LABS: Urine Bacteria None Seen /HPF (<20); Urine Mucus Slight /HPF (None Seen); Urine RBC None Seen /HPF (None Seen)
[2022-09-04 01:04] VITALS: BMI 19.0
[2022-09-04] MEDS: HYDROCODONE/APAP 7.5/325 MG TAB PO PRN (03:41)
[2022-09-04] MEDS: ONDANSETRON 4 MG/2 ML VIAL IV PRN ×2 (03:42→21:18)
[2022-09-04] MEDS: NA CHLORIDE 0.9% 1,000 ML IV SCH ×2 (05:00→10:02)
[2022-09-04 05:57] LABS: Absolute Lymphocytes (CBC) 1.6 K/uL (0.7-4.9); Hematocrit 34.4 % (39.6-49.0); Lymphocytes % 17.3 % (15.3-44.8); MCV 85.2 fL (80-100); MPV 7.3 fL (7.6-11.3); RBC Red Blood Cell Count 4.04 M/uL (4.33-5.43)
[2022-09-04 06:10] LABS: Albumin 2.7 g/dL (3.4-5.0); Bilirubin Total 0.2 mg/dL (0.2-1.0); Potassium 3.5 mmol/L (3.5-5.1); Protein, Total 6.2 g/dL (6.4-8.2)
[2022-09-04] MEDS ORDERED: NA CHLORIDE 0.9% 500 ML IV ONE (16:30)
[2022-09-04 17:12] VITALS: O2SAT 97
[2022-09-04] MEDS ORDERED: NA CHLORIDE 0.9% 1,000 ML IV ONE (17:35)
[2022-09-04] MEDS ORDERED: ALBUMIN HUMAN 25% 100 ML IV ONE (21:40)
[2022-09-05] MEDS: NA CHLORIDE 0.9% 1,000 ML IV SCH ×3 (00:57→21:09)
[2022-09-05] MEDS ORDERED: NA CHLORIDE 0.9% 1,000 ML IV ONE (06:48)
[2022-09-05] MEDS: MIDODRINE HCL 5 MG TABLET PO SCH ×3 (08:03→21:09)
[2022-09-05 11:32] LABS: Absolute Lymphocytes (CBC) 1.1 K/uL (0.7-4.9); Hematocrit 28.2 % (39.6-49.0); Lymphocytes % 15.8 % (15.3-44.8); MCV 86.7 fL (80-100); MPV 7.1 fL (7.6-11.3); RBC Red Blood Cell Count 3.25 M/uL (4.33-5.43)
[2022-09-05 12:11] LABS: Potassium 3.8 mmol/L (3.5-5.1)
[2022-09-05] MEDS: HYDROCODONE/APAP 7.5/325 MG TAB PO PRN ×2 (17:25→23:08)
[2022-09-06] MEDS: NA CHLORIDE 0.9% 1,000 ML IV SCH (08:59)
[2022-09-06] MEDS: MIDODRINE HCL 5 MG TABLET PO SCH ×2 (08:59→14:01)
[2022-09-06 12:01] VITALS: BP 102/41; TEMP 98.6
== END 2022-09-06 14:08 | disposition home or self-care (01) | DRG 683 ==
LOC: ER 14:47 → ERHOLD 18:08 → 2ND 09-04 01:08
PROVIDERS: ADMIT Hospitalist; ATTEND Hospitalist
DX: N17.9 Acute kidney failure, unspecified (principal); E87.1 Hypo-osmolality and hyponatremia; E87.21 Acute metabolic acidosis; E86.0 Dehydration; F31.9 Bipolar disorder, unspecified; I10 Essential (primary) hypertension; E03.9 Hypothyroidism, unspecified; F17.220 Nicotine dependence, chewing tobacco, uncomplicated; Z93.2 Ileostomy status; Z59.00 Homelessness unspecified; Z90.49 Acquired absence of other specified parts of digestive tract; Z20.822 Contact with and (suspected) exposure to COVID-19
CPT/HCPCS: 0240U; 36415; 80048; 80053; 81003; 81015; 83605; 83690; 85025; 96361; 96374; 96375; 99285; J2405; J7030; P9047

== ENCOUNTER 2022-09-09 11:38 | Inpatient (IN) | payer SELFPAY ==
--- OUTSIDE RECORDS SUMMARY | 2022-09-09 11:55 | XMS REPORT | Continuity of Care Document ---
:1970 Author Organization [facility] t Address [address] [place] [address] [address] [place] [address] Care Team Providers Name Role Phone UNKNOWN, REFFERING Primary Care Physician Unavailable Coco Nova Attending Clinician Unavailable Mark Perea Attending Clinician Unavailable Steve Urias Attending Clinician Unavailable YESSI RAMOS Attending Clinician Unavailable NELSON GARCIA Attending Clinician Unavailable KENDRA CARDENAS Attending Clinician Unavailable ANYA, LEÓN MUIR Attending Clinician Unavailable Aryan Tello MD Attending Clinician [phone] Marty CAPONE, Dee Dee Nelson Attending Clinician Shiela CAPONE, EduarebenezerZander Attending Clinician Pao Barton MD Attending Clinician Anya CAPONE, León Muir Attending Clinician [phone] Teddy Carbajal MD Attending Clinician Bernabe Calvert [...] Clinician Lindsey Escobar, Steve Santana Attending Clinician [phone] KARIN BASSETT Attending Clinician Unavailable Bert [...] Number Effective Date Expiration Date Jessica rowland [facility] [id number] 2019 ADMIT 00:00:00 Problems Condition Condition Condition Status Onset Resolution Last Treating Co mments Source Name Details Category Date Date Treatment Clinician Date Lightheade Lightheade Disease Active [facility] Altered Altered Disease Active [facility] bowel bowel 01-19 [facility] eliminatio eliminatio 00:00: n due to n due to 00 intestinal intestinal ostomy ostomy Acute Acute Disease Active [facility] kidney 5-20 [facility] injury injury 00:00: 00 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 [facility] resection resection 00:00: Medi mariusz 00 Center Intestinal Intestinal Disease Active [facility] stoma stoma 03-17 [facility] prolapse prolapse 00:00: Medica l 00 Adrian Disorder Disorder Disease Active [facility] stoma of stoma 15 Health 00:00: 00 Dehydratio Dehydratio Disease Active H arris n n Health Encounter Encounter Disease Active Compa ris for ostomy for ostomy He [facility] care care education education ALMA (acute ALMA (acute Disease Resolve 2022-02-20 2022-02-20 [facility] kidney kidney d 02-18 00:00:00 10:32:00 Health injury) injury) 00:00: 00 Hypotensio Hypotensio Disease Resolve 2022-02-20 2022-02-20 Maged n n d 00:00:00 10:31:59 Health High High Disease Resolve 2022-02-11 2022-02-11 Lynen output output d 6 00:00:00 10:54:06 Health [...] U [facility] 6-09 Rodriguez s 00:00: [facility] 00 [facility] No Known DA Active U 2020-08 [facility] Allergie 1-29 [facility] s 00:00: d 00 [facility] No Known DA Active U [facility] All[facility]ie 9-05 Clear s 00:00: [facility] No Known DA Active U [facility] 9[facility]05 Clear s 00:00: [facility] No Known DA Active U [facility] 7-03 Clear s 00:00: [facility] No Known DA Active U [facility]ie 5-14 Clear s 00:00: [facility] No Known DA Active [...] Alcohol intake 2022-02-18 2022-02-18 Current drinker of [employer] 00:00:00 00:00:00 alcohol (finding) History [facility] 2019-03-17 2019-03-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 [facility] Alcohol Comment 00:00:00 00:00:00 Medical C enter Tobacco use and 2019-03-17 2019-03-[address] [facility] exposure 00:00:00 00:00:00 Medical Center History SDVT Food 2017-04-14 2017-04-14 1 [facility] Worry 00:00:00 00:00:00 History SDVT Food 2017-04-14 2017-04-14 1 [facility] Scarcity 00:00:00 00:00:00 Sex [birth year] At [birth year] Maged Douglas alth 00:00:00 00:00:00 Smoking Status Start Date Stop Date Source Never smoker [facility] Medications Ordered Filled Start Stop [...] intestinal ostomy loperamide 2021- No Altered 4mg Q.93873526 Take 2 Lynne (IMODIUM) 2 02-20 bowel [id number] capsules Health mg capsule 00:00: 23:59 elimination [...] intestinal ostomy loperamide 2021- No Altered 4mg Q.59070055 Take 2 Lynne (IMODIUM) 2 02-20 bowel [id number] capsules Health mg capsule 00:00: 23:59 elimination [...] intestinal ostomy loperamide 2021- No Altered 4mg Q.82684213 Take 2 [facility] (IMODIUM) 2 02-20 bowel [id number] capsules Health mg capsule 00:00: 23:59 elimination [...] intestinal ostomy loperamide 2021- No Altered 4mg Q.12704500 Take 2 Lynne (IMODIUM) 2 02-20 bowel [id number] capsules Health mg capsule 00:00: 23:59 elimination [...] intestinal ostomy loperamide 2021- No Altered 4mg Q.91089507 Take 2 Lyn[facility] (IMODIUM) 2 02-20 bowel [id number] capsules Health mg capsule 00:00: 23:59 elimination [...] intestinal ostomy loperamide 2021- No Altered 4mg Q.12566247 Take 2 [facility] (IMODIUM) 2 02-2030 bowel [id number] capsules Health mg capsule 00:00: 23:59 elimination 3D by mouth 3 00 :00 due to times intestinal daily ostomy (before meals) for 30 days tamsulosin 2022-0 2022- No Acute .4mg Take 1 Compa ris (FLOMAX) 02-20 kidney capsule by He alth 0.4 mg 00:00: 23:59 injury mouth capsule 00 :00 every evening for 30 days psyllium 2021- No Altered 1{packe Take 1 Lynne (METAMUCIL) 02-2030 bowel t} Packet by [facility]alth 6 gram PwPk 00:00: 23:59 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 loperamide 2021- No Altered 4mg Q.60911481 Take 2 Lynne (IMODIUM) 2 02-2030 bowel [id number] capsules Health mg capsule 00:00: 23:59 elimination [...] intestinal ostomy loperamide 2021- No Altered 4mg Q.64896044 Take 2 Lynne (IMODIUM) 2 02-2030 bowel [id number] capsules Health mg capsule 00:00: 23:59 elimination [...] intestinal ostomy loperamide 2021- No Altered 4mg Q.39099447 Take 2 Lynne (IMODIUM) 2 02-20-30 bowel [id number] capsules Health mg capsule 00:00: 23:59 elimination [...] intestinal ostomy loperamide 2021- No Altered 4mg Q.29315898 Take 2 [facility]ne (IMODIUM) 2 02-20-30 bowel [id number] capsules Health mg capsule 00:00: 23:59 elimination [...] intestinal ostomy loperamide 2021- No Altered 4mg Q.12674471 Take 2 Lynne (IMODIUM) 2 02-20-30 bowel [id number] capsules Health mg capsule 00:00: 23:59 elimination [...] intestinal ostomy loperamide 2021- No Altered 4mg Q.15318920 Take 2 Lynne (IMODIUM) 2 -22 03-30 bowel [id number] capsules Health mg capsule 00:00: 23:59 elimination [...] intestinal ostomy loperamide 2021- No Altered 4mg Q.20149102 Take 2 Lynne (IMODIUM) 2 -22 03-30 bowel [id number] capsules Health mg capsule 00:00: 23:59 elimination [...] intestinal ostomy loperamide 2021- No Altered 4mg Q.39611889 Take 2 Lynne (IMODIUM) 2 -30 07-30 bowel [id number] capsules Health mg capsule 00:00: 23:59 elimination [...] intestinal ostomy loperamide 2021- No Altered 4mg Q.31847080 Take 2 Lynne (IMODIUM) 2 02-20-30 bowel [id number] capsules Health mg capsule 00:00: 23:59 elimination [...] intestinal ostomy loperamide 2021- No Altered 4mg Q.06791834 Take 2 Lynne (IMODIUM) 2 02-20-30 bowel [id number] capsules Health mg capsule 00:00: 23:59 elimination [...] intestinal ostomy loperamide 2021- No Altered 4mg Q.19843148 Take 2 Lynne (IMODIUM) 2 02-20 bowel [id number] capsules Health mg capsule 00:00: 23:59 elimination [...] Lynne (METAMUCIL) 02-1130 bowel t} Packet by [place] 6 gram PwPk 00:00: 00:00 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 psyllium 2021- No Altered 1{packe Take 1 Lynne (METAMUCIL) 02-1130 bowel t} Packet by [place] 6 gram PwPk 00:00: 00:00 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 psyllium 2021- No Altered 1{packe Take 1 Lynne (METAMUCIL) 02-11 bowel t} Packet by [place] 6 gram PwPk 00:00: 00:00 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 psyllium 2021- No Altered 1{packe Take 1 Lynne (METAMUCIL) 02-1130 bowel t} Packet by [place] 6 gram PwPk 00:00: 00:00 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 psyllium 2021- No Altered 1{packe Take 1 Lynne (METAMUCIL) 02-11 bowel t} Packet by [place] 6 gram PwPk 00:00: 00:00 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 psyllium 2021- No Altered 1{packe Take 1 Lynne (METAMUCIL) 02-1130 bowel t} Packet by [place] 6 gram PwPk 00:00: 00:00 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 psyllium 2021- No Altered 1{packe Take 1 Lynne (METAMUCIL) 02-11 bowel t} Packet by [place] 6 gram PwPk 00:00: 00:00 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 psyllium 2021- No Altered 1{packe Take 1 Lynne (METAMUCIL) 02-1130 bowel t} Packet by [facility] 6 gram PwPk 00:00: 00:00 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 psyllium 2021- No Altered 1{packe Take 1 Lynne (METAMUCIL) 02-1130 bowel t} Packet by [place] 6 gram PwPk 00:00: 00:00 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 psyllium 2021- No Altered 1{packe Take 1 Lynne (METAMUCIL) 02-11 bowel t} Packet by [facility] 6 gram PwPk 00:00: 00:00 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 psyllium 2021- No Altered 1{packe Take 1 Lynne (METAMUCIL) 02-11 bowel t} Packet by [facility] 6 gram PwPk 00:00: 00:00 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 psyllium 2021- No Altered 1{packe Take 1 Lynne (METAMUCIL) 02-11 bowel t} Packet by [facility] 6 gram PwPk 00:00: 00:00 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 psyllium 2021- No Altered 1{packe Take 1 Lynne (METAMUCIL) 02-11 bowel t} Packet by [facility] 6 gram PwPk 00:00: 00:00 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 psyllium 2021- No Altered 1{packe Take 1 Lynne (METAMUCIL) 02-11 bowel t} Packet by [facility] 6 gram PwPk 00:00: 00:00 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 psyllium 2021- No Altered 1{packe Take 1 Lynne (METAMUCIL) 02-11 bowel t} Packet by [facility] 6 gram PwPk 00:00: 00:00 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 ascorbic 2021- No Altered 250mg QD Take 1 Momin rris acid, 5-31 -30 bowel tablet by [employer] vitamin C, 00:00: 23:59 elimination mouth 250 mg 00 :00 due to daily for tablet intestinal 60 days ostomy magnesium 2021-2021- No Altered 800mg Q.5D Take 2 H arris oxide 5- 07-30 bowel tablets by [facility] (MAG-OX) 00:00: 23:59 elimination mouth 2 [...] Momin rris acid, 01-21-30 bowel tablet by [facility] vitamin C, 00:00: 23:59 elimination mouth [...] Lynne n with 01-21-30 bowel tablet by [facility] folic acid 00:00: 23:59 elimination mouth (THERA) 400 00 :00 due to daily for mcg tablet intestinal 60 days ostomy ascorbic 2021-2021- No Altered 250mg QD Take 1 Momin rris acid, 01-21-30 bowel tablet by [facility] vitamin C, 00:00: 23:59 elimination mouth 250 mg 00 :00 due to daily for tablet intestinal 60 days ostomy magnesium 2021-2021- No Altered 800mg Q.5D Take 2 H arris oxide 5- 07-30 bowel tablets by [facility] (MAG-OX) 00:00: 23:59 elimination mouth 2 [...] rris acid, -23 03-30 bowel tablet by [facility] vitamin C, 00:00: 23:59 elimination mouth 250 mg 00 :00 due to daily for tablet intestinal 60 days ostomy magnesium 2021- No Altered 800mg Q.5D Take 2 H arris oxide 5-23 03-30 bowel tablets by [facility] (MAG-OX) 00:00: 23:59 elimination mouth 2 [...] arris oxide 5- 07-30 bowel tablets by [facility] (MAG-OX) 00:00: 23:59 elimination mouth 2 [...] H arris oxide 01-21-30 bowel tablets by [employer] (MAG-OX) 00:00: 23:59 elimination mouth 2 400 [...] arris oxide 5-23 03-30 bowel tablets by [facility] (MAG-OX) 00:00: 23:59 elimination mouth 2 [...] Momin rris acid, 01-21-30 bowel tablet by [facility] vitamin C, 00:00: 23:59 elimination mouth 250 mg 00 :00 due to daily for tablet intestinal 60 days ostomy magnesium 2021- No Altered 800mg Q.5D Take 2 H arris oxide 01-21-30 bowel tablets by [facility] (MAG-OX) 00:00: 23:59 elimination mouth 2 400 mg 00 :00 due to times (241.3 mg intestinal daily for magnesium) ostomy 60 days tablet multivitami 2021- No Altered 1{tbl} QD Take 1 Lynne n with 01-21-30 bowel tablet by [facility] folic acid 00:00: 23:59 elimination mouth (THERA) 400 00 :00 due to daily for mcg tablet intestinal 60 days ostomy ascorbic 2021- No Altered 250mg QD Take 1 Momin rris acid, 01-21-30 bowel tablet by [facility] vitamin C, 00:00: 23:59 elimination mouth 250 mg 00 :00 due to daily for tablet intestinal 60 days ostomy magnesium 2021- No Altered 800mg Q.5D Take 2 H arris oxide 5-23 03-30 bowel tablets by [facility] (MAG-OX) 00:00: 23:59 elimination mouth 2 [...] 2021- No Altered 250mg QD Take 1 Moimn rris acid, 01-21-30 bowel tablet by [facility] vitamin C, 00:00: 23:59 elimination mouth 250 mg 00 :00 due to daily for tablet intestinal 60 days ostomy magnesium 2021- No Altered 800mg Q.5D Take 2 H arris oxide -23 03-30 bowel tablets by [facility] (MAG-OX) 00:00: 23:59 elimination mouth 2 400 mg 00 :00 due to times (241.3 mg intestinal daily for magnesium) ostomy 60 days tablet multivitami 2021- No Altered 1{tbl} QD Take 1 Lynne n with 01-21-30 bowel tablet by [facility] folic acid 00:00: 23:59 elimination mouth (THERA) 400 00 :00 due to daily for mcg tablet intestinal 60 days ostomy ascorbic 2021- No Altered 250mg QD Take 1 Momin rris acid, 01-2130 bowel tablet by [facility] vitamin C, 00:00: 23:59 elimination mouth 250 mg 00 :00 due to daily for tablet intestinal 60 days ostomy magnesium 2021- No Altered 800mg Q.5D Take 2 H arris oxide 01-21-30 bowel tablets by [facility] (MAG-OX) 00:00: 23:59 elimination mouth 2 400 mg 00 :00 due to times (241.3 mg intestinal daily for magnesium) ostomy 60 days tablet multivitami 2021- No Altered 1{tbl} QD Take 1 Lynne n with 01-21-30 bowel tablet by [facility] folic acid 00:00: 23:59 elimination mouth (THERA) 400 00 :00 due to daily for mcg tablet intestinal 60 days ostomy ascorbic 2021- No Altered 250mg QD Take 1 Momin rris acid, 01-21-30 bowel tablet by [facility] vitamin C, 00:00: 23:59 elimination mouth 250 mg 00 :00 due to daily for tablet intestinal 60 days ostomy magnesium 2021- No Altered 800mg Q.5D Take 2 H arris oxide 5-23 03-30 bowel tablets by [facility] (MAG-OX) 00:00: 23:59 elimination mouth 2 400 mg 00 :00 due to times (241.3 mg intestinal daily for magnesium) ostomy 60 days tablet multivitami 2021- No Altered 1{tbl} QD Take 1 Lynne n with 5-30 bowel tablet by [facility] folic acid 00:00: 23:59 elimination mouth (THERA) 400 00 :00 due to daily for mcg tablet intestinal 60 days ostomy ascorbic 2021- No Altered 250mg QD Take 1 Momin rris acid, 01-21-30 bowel tablet by [facility] vitamin C, 00:00: 23:59 elimination mouth 250 mg 00 :00 due to daily for tablet intestinal 60 days ostomy magnesium 2021- No Altered 800mg Q.5D Take 2 H arris oxide -23 03-30 bowel tablets by [facility] ([facility]) 00:00: 23:59 elimination mouth 2 400 mg 00 :00 due to times (241.3 mg intestinal daily for magnesium) ostomy 60 days tablet multivitami 2021- No Altered 1{tbl} QD Take 1 Lynne n with 01-2130 bowel tablet by [facility] folic acid 00:00: 23:59 elimination mouth (THERA) 400 00 :00 due to daily for mcg tablet intestinal 60 days ostomy ascorbic 2021- No Altered 250mg QD Take 1 Momin rris acid, 01-21 bowel tablet by [facility] vitamin C, 00:00: 23:59 elimination mouth 250 mg 00 :00 due to daily for tablet intestinal 60 days ostomy magnesium 2021- No Altered 800mg Q.5D Take 2 H arris oxide 01-21-30 bowel tablets by [facility] (MAG-OX) 00:00: 23:59 elimination mouth 2 400 mg 00 :00 due to times (241.3 mg intestinal daily for magnesium) ostomy 60 days tablet multivitami 2021- No Altered 1{tbl} QD Take 1 Lynne n with 5-30 bowel tablet by [facility] folic acid 00:00: 23:59 elimination mouth (THERA) 400 00 :00 due to daily for mcg tablet intestinal 60 days ostomy ascorbic 2021- No Altered 250mg QD Take 1 Momin rris acid, 5-31 07-30 bowel tablet by [facility] vitamin C, 00:00: 23:59 elimination mouth 250 mg 00 :00 due to daily for tablet intestinal 60 days ostomy magnesium No Altered 800mg Q.5D Take 2 H arris oxide 01-21 bowel tablets by [facility] (MAG-OX) 00:00: 23:59 elimination mouth 2 400 mg 00 :00 due to times (241.3 mg intestinal daily for magnesium) ostomy 60 days tablet multivitami 2021- No Altered 1{tbl} QD Take 1 Lynne n with 01-21 bowel tablet by [facility] folic acid 00:00: 23:59 elimination mouth [...] days ostomy loperamide 2021- No Altered 4mg Q.81337273 Take 2 Lynne (IMODIUM) 2 01-21 bowel [id number] capsules Health mg capsule 00:00: 00:00 elimination [...] days ostomy loperamide 2021- No Altered 4mg Q.06617386 Take 2 Lynne (IMODIUM) 2 01-21 bowel [id number] capsules Health mg capsule 00:00: 00:00 elimination [...] 60 days ostomy loperamide No Altered 4mg Q.48586195 Take 2 Lynne (IMODIUM) 2 01-21 bowel [id number] capsules Health mg capsule 00:00: 00:00 elimination [...] days ostomy loperamide 2021- No Altered 4mg Q.43111096 Take 2 Lynne (IMODIUM) 2 01-21 bowel [id number] capsules Health mg capsule 00:00: 00:00 elimination [...] days ostomy loperamide 2021- No Altered 4mg Q.90003551 Take 2 Lynne (IMODIUM) 2 01-21 bowel [id number] capsules Health mg capsule 00:00: 00:00 elimination [...] days ostomy loperamide 2021- No Altered 4mg Q.42790435 Take 2 Lynne (IMODIUM) 2 01-21 bowel [id number] capsules Health mg capsule 00:00: 00:00 elimination [...] days ostomy loperamide 2021- No Altered 4mg Q.53692863 Take 2 Lynne (IMODIUM) 2 01-21- bowel [id number] capsules Health mg capsule 00:00: 00:00 elimination [...] days ostomy loperamide 2021- No Altered 4mg Q.26189946 Take 2 Lynne (IMODIUM) 2 01-21-30 bowel [id number] capsules Health mg capsule 00:00: 00:00 elimination [...] days ostomy loperamide 2021- No Altered 4mg Q.40872025 Take 2 Lynne (IMODIUM) 2 - 06-30 bowel [id number] capsules Health mg capsule 00:00: 00:00 elimination [...] days ostomy loperamide 2021- No Altered 4mg Q.05998506 Take 2 Lynne (IMODIUM) 2 01-21-30 bowel [id number] capsules Health mg capsule 00:00: 00:00 elimination [...] days ostomy loperamide 2021- No Altered 4mg Q.48556884 Take 2 Lynne (IMODIUM) 2 01-21-30 bowel [id number] capsules Health mg capsule 00:00: 00:00 elimination [...] days ostomy loperamide 2021- No Altered 4mg Q.31380127 Take 2 Lynne (IMODIUM) 2 01-21-30 bowel [id number] capsules Health mg capsule 00:00: 00:00 elimination 3D by mouth 3 00 :00 due to times intestinal daily ostomy (before meals) for 30 days tamsulosin 2021- No Acute .4mg Take 1 Compa ris (FLOMAX) 01-21-30 kidney capsule by [facility] 0.4 mg 00:00: 00:00 injury mouth capsule 00 :00 every evening for 30 days ferrous 2022-0 2022- No Altered 325mg QD Take 1 Compa ris sulfate 325 01-21-30 bowel tablet by [facility] mg (65 mg 00:00: 00:00 elimination mouth iron) 00 :00 due to daily for tablet intestinal 60 days ostomy loperamide 2021- No Altered 4mg Q.83499822 Take 2 Lynne (IMODIUM) 2 --30 bowel [id number] capsules Health mg capsule 00:00: 00:00 elimination [...] days ostomy loperamide 2021- No Altered 4mg Q.01016857 Take 2 Lynne (IMODIUM) 2 01-21-30 bowel [id number] capsules Health mg capsule 00:00: 00:00 elimination [...] days ostomy loperamide 2021- No Altered 4mg Q.85826309 Take 2 Lynne (IMODIUM) 2 - 06-30 bowel [id number] capsules Health mg capsule 00:00: 00:00 elimination [...] days ostomy loperamide 2021- No Altered 4mg Q.91391328 Take 2 Lynne (IMODIUM) 2 01-21-30 bowel [id number] capsules Health mg capsule 00:00: 00:00 elimination [...] days ostomy loperamide 2021- No Altered 4mg Q.12582838 Take 2 Lynne (IMODIUM) 2 01-21-30 bowel [id number] capsules Health mg capsule 00:00: 00:00 elimination 3D by mouth 3 00 :00 due to times intestinal daily ostomy (before meals) for 30 days psyllium 2021- No Altered 1{packe Q.41998080 Take 1 Lynne (METAMUCIL) 01-21- bowel t} [id number] Packet by [employer] 6 gram PwPk 00:00: 00:00 elimination 3D mouth 3 00 :00 due to times intestinal daily ostomy (before meals) for 90 days psyllium 2021- No Altered 1{packe Q.29698617 Take 1 Lynne (METAMUCIL) 01-21- bowel t} [id number] Packet by [employer] 6 gram PwPk 00:00: 00:00 elimination 3D mouth 3 00 :00 due to times intestinal daily ostomy (before meals) for 90 days psyllium 2021- No Altered 1{packe Q.60544762 Take 1 Lynne (METAMUCIL) 01-21 bowel t} [id number] Packet by [facility] 6 gram PwPk 00:00: 00:00 elimination 3D mouth 3 00 :00 due to times intestinal daily ostomy (before meals) for 90 days psyllium 2021- No Altered 1{packe Q.40466415 Take 1 Lynne (METAMUCIL) 01-21 bowel t} [id number] Packet by [employer] 6 gram PwPk 00:00: 00:00 elimination 3D mouth 3 00 :00 due to times intestinal daily ostomy (before meals) for 90 days psyllium 2021- No Altered 1{packe Q.65836288 Take 1 Lynne (METAMUCIL) 01-21 bowel t} [id number] Packet by [facility] 6 gram PwPk 00:00: 00:00 elimination 3D mouth 3 00 :00 due to times intestinal daily ostomy (before meals) for 90 days psyllium 2021- No Altered 1{packe Q.65344558 Take 1 Lynne (METAMUCIL) 01-21 bowel t} [id number] Packet by [facility] 6 gram PwPk 00:00: 00:00 elimination 3D mouth 3 00 :00 due to times intestinal daily ostomy (before meals) for 90 days psyllium 2021- No Altered 1{packe Q.22887893 Take 1 Lynne (METAMUCIL) 01-21 bowel t} [id number] Packet by [facility] 6 gram PwPk 00:00: 00:00 elimination 3D mouth 3 00 :00 due to times intestinal daily ostomy (before meals) for 90 days psyllium 2021- No Altered 1{packe Q.85966501 Take 1 Lynne (METAMUCIL) 01-21 bowel t} [id number] Packet by [facility] 6 gram PwPk 00:00: 00:00 elimination 3D mouth 3 00 :00 due to times intestinal daily ostomy (before meals) for 90 days psyllium 2021- No Altered 1{packe Q.30797663 Take 1 Lynne (METAMUCIL) 01-21 bowel t} [id number] Packet by [facility] 6 gram PwPk 00:00: 00:00 elimination 3D mouth 3 00 :00 due to times intestinal daily ostomy (before meals) for 90 days psyllium 2021- No Altered 1{packe Q.78761369 Take 1 Lynne (METAMUCIL) 01-21 bowel t} [id number] Packet by [employer] 6 gram PwPk 00:00: 00:00 elimination 3D mouth 3 00 :00 due to times intestinal daily ostomy (before meals) for 90 days psyllium 2021- No Altered 1{packe Q.06764029 Take 1 Lynne (METAMUCIL) 01-21 bowel t} [id number] Packet by [facility] 6 gram PwPk 00:00: 00:00 elimination 3D mouth 3 00 :00 due to times intestinal daily ostomy (before meals) for 90 days psyllium 2021- No Altered 1{packe Q.81107121 Take 1 Ylnne (METAMUCIL) 01-21 bowel t} [id number] Packet by [employer] 6 gram PwPk 00:00: 00:00 elimination 3D mouth 3 00 :00 due to times intestinal daily ostomy (before meals) for 90 days psyllium 2021- No Altered 1{packe Q.74284487 Take 1 Lynne (METAMUCIL) 01-21 bowel t} [id number] Packet by [employer] 6 gram PwPk 00:00: 00:00 elimination 3D mouth 3 00 :00 due to times intestinal daily ostomy (before meals) for 90 days psyllium 2021- No Altered 1{packe Q.20870506 Take 1 Lynne (METAMUCIL) 01-21 bowel t} [id number] Packet by [employer] 6 gram PwPk 00:00: 00:00 elimination 3D mouth 3 00 :00 due to times intestinal daily ostomy (before meals) for 90 days psyllium 2021- No Altered 1{packe Q.36594966 Take 1 Lynne (METAMUCIL) 01-21 bowel t} [id number] Packet by [employer] 6 gram PwPk 00:00: 00:00 elimination 3D mouth 3 00 :00 due to times intestinal daily ostomy (before meals) for 90 days psyllium 2021- No Altered 1{packe Q.09387612 Take 1 Lynne (METAMUCIL) 01-21 bowel t} [id number] Packet by [employer] 6 gram PwPk 00:00: 00:00 elimination 3D mouth 3 00 :00 due to times intestinal daily ostomy (before meals) for 90 days psyllium 2021- No Altered 1{packe Q.20452079 Take 1 Lynne (METAMUCIL) 01-21 bowel t} [id number] Packet by [employer] 6 gram PwPk 00:00: 00:00 elimination 3D mouth 3 00 :00 due to times intestinal daily ostomy (before meals) for 90 days tamsulosin 2021- No Benign .4mg QD Take 1 Momin rris (FLOMAX) 01-12 prostatic capsule by [employer] 0.4 mg 00:00: 00:00 hyperplasia mouth capsule 00 :00 , daily. unspecified Start on whether 01/12/2022. lower urinary tract symptoms present tamsulosin 2021- No Benign .4mg QD Take 1 Momin rris (FLOMAX) 01-12 prostatic capsule by [employer] [facility] 0.4 mg 00:00: 00:00 hyperplasia mouth capsule 00 :00 , daily. unspecified Start on whether 01/12/2022. lower urinary tract symptoms present tamsulosin 2021- No Benign .4mg QD Take 1 Momin rris (FLOMAX) 01-12- prostatic capsule by [employer] 0.4 mg 00:00: 00:00 hyperplasia mouth capsule 00 :00 , daily. unspecified Start on whether 01/12/2022. lower urinary tract symptoms present tamsulosin 2021- No Benign .4mg QD Take 1 Momin rris (FLOMAX) 01-12 prostatic capsule by [employer] 0.4 mg 00:00: 00:00 hyperplasia mouth capsule [...] Momin rris (FLOMAX) 01-12- prostatic capsule by [facility] 0.4 mg 00:00: 00:00 hyperplasia mouth [...] Momin rris (FLOMAX) 01-12- prostatic capsule by [facility] 0.4 mg 00:00: 00:00 hyperplasia mouth capsule 00 :00 , daily. unspecified Start on whether 01/12/2022. lower urinary tract symptoms present tamsulosin 2021-2021- No Benign .4mg QD Take 1 Momin rris (FLOMAX) 01-12 prostatic capsule by [facility] 0.4 mg 00:00: 00:00 hyperplasia mouth capsule 00 :00 , daily. unspecified Start on whether 01/12/2022. lower urinary tract symptoms present tamsulosin 2021-2021- No Benign .4mg QD Take 1 Momin rris (FLOMAX) 01-12 prostatic capsule by [facility] 0.4 mg 00:00: 00:00 hyperplasia mouth capsule 00 :00 , daily. unspecified Start on whether 01/12/2022. lower urinary tract symptoms present tamsulosin 2021- No Benign .4mg QD Take 1 Momin rris (FLOMAX) 01-12- prostatic capsule by [facility] 0.4 mg 00:00: 00:00 hyperplasia mouth capsule 00 :00 , daily. unspecified Start on whether 01/12/2022. lower urinary tract symptoms present tamsulosin 2021-2021- No Benign .4mg QD Take 1 Momin rris (FLOMAX) 01-12- prostatic capsule by [facility] 0.4 mg 00:00: 00:00 hyperplasia mouth capsule 00 :00 , daily. unspecified Start on whether 01/12/2022. lower urinary tract symptoms present tamsulosin 2021-2021- No Benign .4mg QD Take 1 Momin rris (FLOMAX) 01-12- prostatic capsule by [facility] 0.4 mg 00:00: 00:00 hyperplasia mouth capsule 00 :00 , daily. unspecified Start on whether 01/12/2022. lower urinary tract symptoms present cyanocobala Yes Malnutritio 1000ug QD Take 1 Lynne min, 5-21 n due to tablet by [facility] vitamin 00:00: starvation mouth B-12, 1,000 00 daily mcg tablet cyanocobala 2-0 Yes Malnutritio 1000ug QD Take 1 Lynne [...] once 00 :00 for 1 dose loperamide 0 2021- No Disorder of 2mg Take 1 [...] n (DAILY 04-14- abuse, in tablet by [facility]) 00:00: 00:00 remission mouth tablet 00 :00 daily. thiamine, 2021- No Alcohol 100mg QD Take 1 H arris B-1, 100 mg 04-14-21 abuse, in tablet by Health tablet 00:00: 00:00 remission mouth 00 :00 daily. multivitami 2021- No Alcohol 1{tbl} QD Take 1 Lynne n (DAILY 04-14- abuse, in tablet by [employer] [facility] [place]) 00:00: 00:00 remission mouth tablet 00 :00 daily. thiamine, 2021- No Alcohol 100mg QD Take 1 H arris B-1, 100 mg 04-14-21 abuse, in tablet by Health tablet 00:00: 00:00 remission mouth 00 :00 daily. multivitami 2021- No Alcohol 1{tbl} QD Take 1 Lynne n (DAILY 04-14-21 abuse, in tablet by [employer] VIT[facility]) 00:00: 00:00 remission mouth tablet 00 [...] (DAILY 8- 05-21 abuse, in tablet by [employer] [facility] [facility] [place]) 00:00: 00:00 remission mouth tablet 00 :00 [...] (DAILY 8 05-21 abuse, in tablet by [employer] [facility] [facility] [place]) 00:00: 00:00 remission mouth tablet 00 :00 daily. 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 multivitami 2021- No Alcohol 1{tbl} QD Take 1 Lynne n (DAILY 04-14 05-21 abuse, in tablet by [facility]) 00:00: 00:00 remission mouth tablet 00 :00 daily. 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 multivitami 2021- No Alcohol 1{tbl} QD Take 1 Lynne n (DAILY 04-14 05-21 abuse, in tablet by [employer] [facility] [facility] [place]) 00:00: 00:00 remission mouth tablet 00 :00 daily. thiamine, 2021- No Alcohol 100mg QD Take 1 H arris B-1, 100 mg 04-14 05-21 abuse, in tablet by Health tablet 00:00: 00:00 remission mouth 00 :00 daily. multivitami 2021- No Alcohol 1{tbl} QD Take 1 Lynne n (DAILY 04-14-21 abuse, in tablet by [facility]) 00:00: 00:00 remission mouth tablet 00 :00 daily. 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 multivitami 2021- No Alcohol 1{tbl} QD Take 1 Lynne n (DAILY 8 05-21 abuse, in tablet by [facility]) 00:00: 00:00 remission mouth tablet 00 :00 [...] n (DAILY 04-14- abuse, in tablet by [employer] [facility] [employer] [place]) 00:00: 00:00 remission mouth tablet 00 :00 [...] Date Status Commen ts Source Name Name [facility] 2017-04-14 Completed [facility] 00:00:00 PPD 2017-04-14 Completed [facility] [...] kg Systolic blood 2022-03-13 15:33:00 94 mm[Hg] [facility] pressure Diastolic blood 2022-03-13 15:33:00 62 mm[Hg] [facility] pressure Heart rate 2022-03-13 15:33:00 109 /min [facility] Body temperature 2022-03-13 15:33:00 36.67 Tasia Alex is [facility] Respiratory rate 2022-03-13 15:33:00 20 /min [facility] Body height 2022-03-13 15:33:00 185.4 cm [facility] Body weight 2022-03-13 15:33:00 66.679 kg [facility] [place] BMI 2022-03-13 15:33:00 19.39 kg/m2 [facility] Oxygen saturation in 2022-03-13 15:33:00 100 /min [facility] Arterial blood by Pulse oximetry Systolic blood 2022-03-09 11:00:00 107 mm[Hg] [facility] Diastolic blood 2022-03-09 11:00:00 66 mm[Hg] [facility] Heart rate 2022-03-09 11:00:00 58 /min [facility] Body temperature 2022-03-09 11:00:00 36.22 Tasia [facility] Respiratory rate 2022-03-09 11:00:00 16 /min [facility] Oxygen saturation in 2022-03-09 11:00:00 100 /min [facility] Arterial blood by Medical Ce [facility]ter Pulse oximetry Body height 2022-03-06 12:05:00 185.4 cm [facility] Body weight 2022-03-06 12:05:00 65.772 kg [facility] BMI 2022-03-06 12:05:00 19.13 kg/m2 [facility] Procedures Procedure Date / Time Performing Clinician Source Performed BASIC METABOLIC PANEL 2022-03-07 05:51:00 [facility] HEPATIC FUNCTION PANEL 2022-03-07 05:51:[address] [facility] CBC W/PLT COUNT & AUTO 2022-03-07 05:51:[address] [facility] CBC W/PLT COUNT & AUTO 2022-03-07 05:51:[address] [facility] US RENAL COMPLETE 2022-03-06 18:23:00 ShielaVidhiAcacia [place] [facility] SARS-COV2/RT-PCR ([facility] 2022-03-06 17:36:00 Shiela [facility] REF LABS) [facility] TSH/FREE T4 IF INDICATED 2022-03-06 14:18:00 [facility] FREE 2022-03-06 14:18:00 [facility]PRETATION 2022-03-06 13:48:12 [facility] 1 VIEW PORTABLE 2022-03-06 13:42:[facility] B-TYPE NATRIURETIC FACTOR 2022-03-06 13:23:[address] [facility] (BNP) [facility] CBC W/PLT COUNT & AUTO 2022-03-06 13:23:00 ElishaAryan [facility] DIFFERENTIAL [facility] COMPREHENSIVE METABOLIC 2022-03-06 13:23:[address] [facility] PANEL [facility] HIGH SENSITIVITY TROPONIN 2022-03-06 13:23:[address] [facility] I [facility] MAGNESIUM 2022-03-06 13:23:00 Jonnagideon Aryan [facility] PHOSPHORUS 2022-03-06 13:23:00 Lurdes Telloyonatan [facility] LACTIC ACID, VENOUS 2022-03-06 13:23:00 Elisha Rasheedamerrick [facility] CREATINE KINASE (CK) 2022-03-06 13:23:00 Elisha Rasheedamerrick [facility] CBC W/PLT COUNT & AUTO 2022-03-06 13:23:00 JonnagideonAryan [facility] DIFFERENTIAL [facility] ECG 12-LEAD 2022-03-06 12:12:56 Unknown, [facility] ECG 12-LEAD 2022-03-06 12:12:56 Unknown, [facility] ECG 12-LEAD 2022-03-06 12:12:56 Unknown, [facility] EKG-SCANNED 2022-03-06 00:00:00 Provider, [facility] CBC (WITHOUT 2022-02-20 05:10:00 Rufino Lazaro DIFFERENTIAL) BASIC METABOLIC PANEL 2022-02-20 05:10:00 Rufino Lazaro Health MAGNESIUM 2022-02-20 05:10:00 Rufino Lazaro h PHOSPHORUS 2022-02-20 05:10:00 Rufino Lazaro INFUSION PUMP 2022-02-19 19:03:50 Rufino Lazaro h COMPREHENSIVE METABOLIC 2022-02-19 06:35:00 Kobe Blake arris Health PANEL CBC/DIFF 2022-02-19 06:35:00 Kobe Blake alth PHOSPHORUS 2022-02-19 06:35:00 Kobe Blake alth CBC 2022-02-19 06:35:00 Kobe Blake alth URINALYSIS W/REFLEX TO 2022-02-19 00:34:00 Kobe Blake [facility] URINE CULTURE URINALYSIS 2022-02-19 00:34:00 Chadd Palacios [facility] h URINE CULTURE COLLECTION 2022-02-19 00:34:00 Philip [facility] KIT SARS-COV-2, FLU A/B, RSV 2022-02-18 [facility]-19, 2022-02-18 19:00:00 Narendra Palaciosard [facility] OLENA XRAY CHEST 1 VIEW 2022-02-18 15:23:00 Roz [facility] CONSULT CLINICAL CASE 2022-02-18 14:50:50 Roz Scales [facility] MANAGEMENT (RN/SW) CBC/DIFF 2022-02-18 14:16:00 AlbSusana almeida [facility] h BASIC METABOLIC PANEL 2022-02-18 14:16:00 [facility]NESIUM 2022-02-18 14:16:00 [facility] 2022-02-18 14:16:00 AlbabSusana [facility] h CREATINE KINASE (CK) 2022-02-18 14:16:00 [facility] CBC 2022-02-18 14:16:00 [facility] BAS[facility] MET[facility]OLIC PANEL 2022-02-11 03:34:00 Meghan Islas [facility] MAGNESIUM 2022-02-11 03:34:00 [facility] PHOSPHORUS 2022-02-11 03:34:00 [facility] CBC (WITHOUT 2022-02-11 03:34:00 Teresa [facility] DIFFERENTIAL) CBC/DIFF 2022-02-10 03:39:00 [facility] 2022-02-10 03:39:00 [facility] 2022-02-10 03:39:00 [facility] 2022-02-10 03:39:00 [facility] HORMONE (TSH) FREE T4 2022-02-10 03:39:00 [facility] CBC/DIFF 2022-02-09 04:38:00 [facility]as [facility]ashia [facility] BAS[facility] MET[facility]OLIC PANEL 2022-02-09 04:38:00 Antonieta [facility] CBC 2022-02-09 04:38:00 [facility] CORTISOL, TOTAL 2022-02-08 11:37:00 Mari [place]ier [place] GLUCOSE POC 2022-02-08 08:07:00 [facility] (WITHOUT 2022-02-08 04:00:00 Mari Meier [place] DIFFERENTIAL) COMPREHENSIVE METABOLIC 2022-02-08 04:00:00 Mari Meier [facility] PANEL PHOSPHORUS 2022-02-08 04:00:00 Mari Meier eah MAGNESIUM 2022-02-08 04:00:00 Mari Meier [place] PT/INR 2022-02-08 04:00:00 Mari Meier [place] URINALYSIS W/REFLEX TO 2022-02-07 18:06:00 Areli Arciniega [facility] URINE CULTURE URINALYSIS 2022-02-07 18:06:00 Areli Arciniega [facility] URINE CULTURE COLLECTION 2022-02-07 18:06:00 Areli Arciniega [facility] KIT ELECTROLYTES, URINE 2022-02-07 18:06:00 Jyoti Carrillo [facility] OSMOLALITY, URINE 2022-02-07 18:06:00 Jyoti Carrillo [facility] [place] SARS-COV-2, FLU A/B, RSV 2022-02-07 18:05:00 Jyoti Carrillo [facility] CORONAVIRUS, COVID-19, 2022-02-07 18:05:00 Jyoti Carrillo [facility] NUTRITION CONSULT 2022-02-07 17:43:36 Mari Meier [facility] ASSESSMENT BASIC METABOLIC PANEL 2022-02-07 17:18:00 Jyoti Carrillo [facility] LACTIC ACID 2022-02-07 14:04:00 Areli Arciniega alth CBC/DIFF 2022-02-07 14:03:00 MicahemilianaAreli shields alth BASIC METABOLIC PANEL 2022-02-07 14:03:00 Areli Arciniega [facility] LIVER PROFILE 2022-02-07 14:03:00 Areli Arciniega alth LIPASE 2022-02-07 14:03:00 Areli Arciniega alth MAGNESIUM 2022-02-07 14:03:00 Areli Arciniega alth PHOSPHORUS 2022-02-07 14:03:00 Areli Arciniega alth TROPONIN I 2022-02-07 14:03:00 Areli Arciniega alth CBC 2022-02-07 14:03:00 MicahemilianaAreli shields alth 12 LEAD EKG 2022-01-21 15:46:10 Ori Goldberg [facility] CBC/DIFF 2022-01-21 04:11:00 Lindsey[facility] MAGNESIUM 2022-01-21 04:11:00 LindseySteve P [facility] PHOSPHORUS 2022-01-21 04:11:00 Lindsey Steve P [facility] BASIC METABOLIC PANEL 2022-01-21 04:11:00 Ori oGldberg [facility] CBC 2022-01-21 04:11:00 LindseySteve P [facility] CBC/DIFF 2022-01-20 04:37:00 LindseyNoeh P [facility] MAGNESIUM 2022-01-20 04:37:00 LindseyNoeh P [facility] PHOSPHORUS 2022-01-20 04:37:00 LindseySteve [facility] BASIC METABOLIC PANEL 2022-01-20 04:37:00 LindseySteve P [facility] CBC 2022-01-20 04:37:00 LindseySteve P [facility] MAGNESIUM 2022-01-19 18:09:00 LindseySteve P [facility] PHOSPHORUS 2022-01-19 18:09[facility]00 [facility] BASIC METABOLIC PANEL 2022-01-19 18:09:00 LindseySteve P [facility] CORTISOL, TOTAL 2022-01-19 18:09:00 Karin Bassett [facility] URINALYSIS W/REFLEX TO 2022-01-19 17:22:00 LindseyNoeh P [facility] URINE CULTURE URINALYSIS 2022-01-19 17:22:00 [facility] URINE CULTURE COLLECTION 2022-01-19 17:22:00 LindseySteve P [facility] KIT COMPUTED TOMOGRAPHY 2022-01-19 13:29:00 Lindsey Steve P [facility] ABDOMEN AND PELVIS WITHOUT CONTRAST CBC/DIFF 2022-01-19 04:44:00 Lindsey Steve P [facility] CBC 2022-01-19 04:44:00 [facility] DIFFERENTIAL, MANUAL (NO 2022-01-19 04:44:00 Steve Lucas [facility] MORPHOLOGY)-WA BASIC METABOLIC PANEL 2022-01-18 17:15:00 Lindsey, Steve P [facility] CBC/DIFF 2022-01-18 04:46:00 Lindsey Steve P [facility] MAGNESIUM 2022-01-18 04:46:00 [facility] PHOSPHORUS 2022-01-18 04:46:00 [facility] BASIC METABOLIC PANEL 2022-01-18 04:46:00 Ori Goldberg [facility] CBC 2022-01-18 04:46:00 [facility] Steve P [facility] HIV AG/AB COMBO ROUTINE 2022-01-18 04:46:00 Karin Bassett [facility] SCREENING ENTERIC PATHOGENS NUCLEIC 2022-01-18 03:25:00 Karin Bassett [facility] ACID TEST BASIC METABOLIC PANEL 2022-01-18 00:29:00 Ori Goldberg [facility] BASIC METABOLIC PANEL 2022-01-17 17:07:00 Steve [...] th PHOSPHORUS 2022-01-17 04:47:00 Steve Lucas [facility] CBC 2022-01-17 04:47:00 Steve Lucas [facility] BASIC METABOLIC PANEL 2022-01-17 00:08:00 [facility] 12 LEAD EKG 2022-01-16 21:23:25 Steve Lucas [facility] BASIC METABOLIC PANEL 2022-01-16 21:08:00 [facility] XRAY CHEST 2 VIEWS 2022-01-16 19:56:00 Steve Lucas IP CONSULT TO PHYSICAL 2022-01-16 19:17:17 Steve Lucas [facility] THERAPY CONSULT CLINICAL CASE 2022-01-16 19:17:17 [facility] MANAGEMENT (RN/SW) SEQUENTIAL COMPRESSION 2022-01-16 19:17:17 [facility] PUMP SEQUENTIAL COMPRESSION 2022-01-16 19:17:17 Steve Lucas [facility] PUMP SODIUM, URINE, RANDOM 2022-01-16 16:00:00 Kevin Nieves [facility] Health CREATININE, URINE, RANDOM 2022-01-16 16:00:00 Kevin Nieves [facility] OSMOLALITY, URINE 2022-01-16 16:00:00 Kevin Nieves [facility] SARS-COV-2, FLU A/B, RSV 2022-01-16 15:20:00 Kevin Nieves [facility] CORONAVIRUS, COVID-19, 2022-01-16 15:20:00 Kevin Nieves arris [facility] OLENA FOLIC ACID 2022-01-16 14:13:00 Kevin Nieves [facility] [place] CREATININE POC 2022-01-16 13:55:00 Raymon Martin [facility] BMP POC 2022-01-16 13:46:00 Raymon Martin [facility] CBC/DIFF 2022-01-16 12:12:00 Raymon Martin [facility] CBC 2022-01-16 12:12:00 Raymon Martin [facility]alt [facility] BASIC METABOLIC PANEL 2022-01-16 12:11:00 Sadiq Vargas Health MAGNESIUM 2022-01-16 12:11:00 Sadiq Vargas [facility] VITAMIN B12 2022-01-16 12:11:00 Kevin Nieves [facility] OSMOLALITY,SERUM 2022-01-16 12:11:00 Kevin Nieves [facility] INFUSION PUMP 2022-01-11 09:21:05 Helene Ring [facility] GLUCOSE POC 2022-01-11 07:54:00 Helene Ring BASIC METABOLIC PANEL 2022-01-11 04:07:00 Merissa Richards [facility] MAGNESIUM 2022-01-11 04:07:00 [facility] 2022-01-11 04:07:00 [facility] CBC/DIFF 2022-01-11 04:06:00 Merissa Richards Healt [facility] IRON PROFILE 2022-01-11 04:06:00 Fercho [facility] F[facility] 2022-01-11 04:06:00 [facility]choMerissa [facility] CBC 2022-01-11 04:06:00 [facility]choMerissa [facility] GLUCOSE POC 2022-01-10 18:16:00 Helene Ring [facility] URINALYSIS 2022-01-10 16:10:00 [facility] URIN[facility] 2022-01-10 16:10:00 Fercho [facility] SARS-COV-2, FLU A/B, RSV 2022-01-10 15:54:00 Merissa Richards [facility] CORONAVIRUS, COVID-19, 2022-01-10 15:54:00 Antoine Hester [facility] OLENA BASIC METABOLIC PANEL 2022-01-10 15:54:00 Merissa Richards [facility] VITAMIN B12 2022-01-10 15:54:00 Brodie Richardsa Felicita [facility] VBG POC 2022-01-10 11:14:00 [facility] CBC/DIFF 2022-01-10 11:13:00 Antoine Hester [facility] BASIC METABOLIC PANEL 2022-01-10 11:13:00 Antoine Hester [facility] LACTIC ACID 2022-01-10 11:13:00 [facility] CBC 2022-01-10 11:13:00 [facility] LIVER [facility]FILE 2022-01-10 11:13:00 [facility] Richards [facility] CK, TOTAL 2022-01-10 11:13:00 Brodie Richardsphilipp [facility] FERRITIN 2022-01-10 11:13:00 [facility] CREATINE KINASE MB (CKMB) 2022-01-10 11:13:00 Merissa Richards [facility] XRAY CHEST 2 VIEWS 2022-01-08 21:50:14 Tanja Sebastian [facility] CBC/DIFF 2022-01-08 21:27:00 Tanja [facility] BASIC METABOLIC PANEL 2022-01-08 21:27:00 Tanja Sebastian [facility] LIVER PROFILE 2022-01-08 21:27:00 Jaz Tanja [facility] CK, TOTAL 2022-01-08 21:27:00 Jaz Tanja K [facility] TROPONIN I 2022-01-08 21:27:00 Jaz Tanja [facility] CBC 2022-01-08 21:27:00 Jaz Tanja [facility] CREATINE KINASE MB (CKMB) 2022-01-08 21:27:00 Jaz Tanja K [facility] 12 LEAD EKG 2022-01-08 20:59:56 Tanja Sebastian [facility] [id number] 2020-01-09 00:00:[id number] [facility] Plan of Care Planned Activity Planned Date Details Comments Source Future Scheduled 2029-03-23 Screening for malignant [facility] Test 00:00:00 neoplasm of colon [facility] (procedure) [code = 889041598] Future Scheduled 2029-03-23 Screening for malignant [facility] Test 00:00:00 neoplasm of colon [facility] (procedure) [code = 698130232] Future Scheduled 2029-03-23 Screening for malignant [facility] Test 00:00:00 neoplasm of colon [facility] (procedure) [code = 852634016] Future Scheduled 2029-03-23 Screening for malignant [facility] Test 00:00:00 neoplasm of colon [facility] (procedure) [code = [id number]] Future Scheduled 2029-03-23 Screening for malignant [facility] Test 00:00:00 neoplasm of colon [facility] (procedure) [code = 952734661] Future Scheduled 2029-03-23 Screening for malignant [facility] Test 00:00:00 neoplasm of colon [facility] (procedure) [code = 889707183] Future Scheduled 2029-03-23 Screening for malignant [facility] Test 00:00:00 neoplasm of colon [facility] (procedure) [code = 025913746] Future Scheduled 2029-03-23 Screening for malignant [facility] Test 00:00:00 neoplasm of colon [facility] (procedure) [code = 191341832] Future Scheduled 2029-03-23 Screening for malignant [facility] Test 00:00:00 neoplasm of colon [facility] (procedure) [code = 554547550] Future Scheduled 2029-03-23 Screening for malignant [facility] Test 00:00:00 neoplasm of colon [facility] (procedure) [code = 149252388] Future Scheduled 2029-03-23 Screening for malignant [facility] Test 00:00:00 neoplasm of colon Medical Ce [facility] (procedure) [code = 932395261] Future Scheduled 2029-03-23 Screening for malignant [facility] Test 00:00:00 neoplasm of colon Medical Ce [facility] (procedure) [code = 612287889] Future Scheduled 2029-03-23 Screening for malignant [facility] Test 00:00:00 neoplasm of colon [facility] (procedure) [code = 476587984] Future Scheduled 2029-03-23 Screening for malignant [facility] Test 00:00:00 neoplasm of colon [facility] (procedure) [code = 847870111] Future Scheduled 2029-03-23 Screening for malignant [facility] Test 00:00:00 neoplasm of colon [facility] (procedure) [code = 217890880] Future Scheduled 2029-03-23 Screening for malignant [facility] Test 00:00:00 neoplasm of colon Medical Ce [facility] (procedure) [code = 969700861] Future Scheduled 2029-03-23 Screening for malignant [facility] Test 00:00:00 neoplasm of colon Medical Ce [facility] (procedure) [code = 859324597] Future Scheduled 2029-03-23 Screening for malignant [facility] Test 00:00:00 neoplasm of colon Medical Ce [facility] (procedure) [code = 808975148] Future Scheduled 2029-03-23 Screening for malignant [facility] Test 00:00:00 neoplasm of colon Medical Ce [facility] (procedure) [code = 911763896] Future Scheduled 2029-03-23 Screening for malignant [facility] Test 00:00:00 neoplasm of colon Medical Ce [facility] (procedure) [code = 740419761] Future Scheduled 2029-03-23 Screening for malignant [facility] Test 00:00:00 neoplasm of colon Medical Ce [facility] (procedure) [code = 523629014] Future Scheduled 2029-03-23 Screening for malignant [facility] Test 00:00:00 neoplasm of colon Medical Ce [facility] (procedure) [code = 040516718] Future Scheduled 2029-03-23 Screening for malignant [facility] Test 00:00:00 neoplasm of colon Medical Ce [facility] (procedure) [code = 908107280] Future Scheduled 2029-03-23 Screening for malignant [facility] Test 00:00:00 neoplasm of colon Medical Ce [facility] (procedure) [code = 341846645] Future Scheduled 2029-03-23 Screening for malignant [facility] Test 00:00:00 neoplasm of colon Medical Ce [facility] (procedure) [code = 757424772] Future Scheduled 2029-03-23 Screening for malignant [facility] Test 00:00:00 neoplasm of colon Medical Ce [facility] (procedure) [code = 387017842] Future Scheduled 2029-03-23 Screening for malignant [facility] Test 00:00:00 neoplasm of colon Medical Ce [facility] (procedure) [code = 207357675] Future Scheduled 2029-03-23 Screening for malignant [facility] Test 00:00:00 neoplasm of colon Medical Ce [facility]ter (procedure) [code = 242335415] Future Scheduled 2029-03-23 Screening for malignant [facility] Test 00:00:00 neoplasm of colon Medical Ce [facility] (procedure) [code = [id number]] Future Scheduled 2029-03-23 Screening for malignant [facility] 00:00:00 neoplasm of colon Medical Ce nter (procedure) [code = 725220335] Future Scheduled 2029-03-23 Screening for malignant [facility] 00:00:00 neoplasm of colon Medical Ce nter (procedure) [code = 283255454] Future Scheduled 2029-03-23 Screening for malignant [facility] 00:00:00 neoplasm of colon Medical Ce nter (procedure) [code = 852488521] Future Scheduled 2029-03-23 Screening for malignant [facility] 00:00:00 neoplasm of colon Medical Ce nter (procedure) [code = 945562193] Future Scheduled 2029-03-23 Screening for malignant [facility] 00:00:00 neoplasm of colon Medical Ce nter (procedure) [code = 176580386] Future Scheduled 2029-03-23 Screening for malignant [facility] 00:00:00 neoplasm of colon Medical Ce nter (procedure) [code = 294716632] Future Scheduled 2029-03-23 Screening for malignant [facility] 00:00:00 neoplasm of colon Medical Ce nter (procedure) [code = 164405631] Future Scheduled 2029-03-23 Screening for malignant [facility] 00:00:00 neoplasm of colon Medical Ce nter (procedure) [code = 939870274] Future Scheduled 2022-08-[address] [...] 00:00:00 neoplasm of colon (procedure) [code = 436445377] Future Scheduled 2020-02-14 Screening for malignant [facility] 00:00:00 neoplasm of colon (procedure) [code = 228819646] Future Scheduled 2020-02-14 Screening for malignant [facility] 00:00:00 neoplasm of colon (procedure) [code = 491626926] Future Scheduled 2020-02-14 Screening for malignant [facility] 00:00:00 neoplasm of colon (procedure) [code = 805042791] Future Scheduled 2020-02-14 Screening for malignant [facility] 00:00:00 neoplasm of colon (procedure) [code = 824551723] Future Scheduled 2020-02-14 Screening for malignant [facility] 00:00:00 neoplasm of colon (procedure) [code = 589178182] Future Scheduled 2020-02-14 Screening for malignant [facility] 00:00:00 neoplasm of colon (procedure) [code = 819340137] Future Scheduled 2020-02-14 Screening for malignant [facility] 00:00:00 neoplasm of colon (procedure) [code = 160726588] Future Scheduled 2020-02-14 Screening for malignant [facility] 00:00:00 neoplasm of colon (procedure) [code = 410461257] Future Scheduled 2020-02-14 Screening for malignant [facility] 00:00:00 neoplasm of colon (procedure) [code = 613319765] Future Scheduled 2020-02-14 Screening for malignant [facility] 00:00:00 neoplasm of colon (procedure) [code = 833574934] Future Scheduled 2020-02-14 Screening for malignant [facility] 00:00:00 neoplasm of colon (procedure) [code = 046431966] Future Scheduled 2020-02-14 Screening for malignant [facility] 00:00:00 neoplasm of colon (procedure) [code = 956888279] Future Scheduled 2020-02-14 Screening for malignant [facility] 00:00:00 neoplasm of colon (procedure) [code = 194865210] Future Scheduled 2020-02-14 Screening for malignant [facility] 00:00:00 neoplasm of colon (procedure) [code = 415015422] Future Scheduled 2020-02-14 Screening for malignant [facility] 00:00:00 neoplasm of colon (procedure) [code = 139657505] Future Scheduled 2020-02-14 SHINGLES VACCINES ([address] [facility] 00:00:00 2) [code [facility] (1 of 2)] Future Scheduled 2020-02-14 Screening for malignant [facility] 00:00:00 neoplasm of colon (procedure) [code = 277044879] Future Scheduled 2020-02-14 SHINGLES VACCINES (1 [facility] [code = [facility] VACCINES (1 of 2)] Future Scheduled 2005 Lipid panel (procedure) [facility] 00:00:00 [code = 98828537] Medical Ce nter Future Scheduled 2005 Lipid panel (procedure) [facility] 00:00:00 [code = 17904968] Medical Ce nter Future Scheduled 2005 Lipid panel (procedure) [facility] 00:00:00 [code = 18150442] Medical Ce nter Future Scheduled 2005 Lipid panel (procedure) [facility] 00:00:00 [code = 43982058] Medical Ce nter Future Scheduled 2005 Lipid panel (procedure) [facility] 00:00:00 [code = 36337989] Medical Ce nter Future Scheduled 2005 Lipid panel (procedure) [facility] 00:00:00 [code = 82516635] Medical Ce nter Future Scheduled 2005 Lipid panel (procedure) [facility] 00:00:00 [code = 34664933] Medical Ce nter Future Scheduled 2005 Lipid panel (procedure) [facility] 00:00:00 [code = 49928315] Medical Ce nter Future Scheduled 2005 Lipid panel (procedure) [facility] 00:00:00 [code = 83773469] Medical Ce nter Future Scheduled 2005 Lipid panel (procedure) [facility] 00:00:00 [code = 59719593] Medical Ce nter Future Scheduled 2005 Lipid panel (procedure) [facility] 00:00:00 [code = 72797990] Medical Ce nter Future Scheduled 2005 Lipid panel (procedure) [facility] 00:00:00 [code = 92961466] Medical Ce nter Future Scheduled 2005 Lipid panel (procedure) [facility] 00:00:00 [code = 12064734] Medical Ce nter Future Scheduled 2005 Lipid panel (procedure) [facility] 00:00:00 [code = 10091491] Medical Ce nter Future Scheduled 2005 Lipid panel (procedure) [facility] 00:00:00 [code = 70901938] Medical Ce nter Future Scheduled 2005 Lipid panel (procedure) [facility] 00:00:00 [code = 60913364] Medical Ce nter Future Scheduled 2005 Lipid panel (procedure) [facility] 00:00:00 [code = 41767662] Medical Ce nter Future Scheduled 2005 Lipid panel (procedure) [facility] 00:00:00 [code = 72325620] Medical Ce nter Future Scheduled 2005 Lipid panel (procedure) [facility] 00:00:00 [code = 99135981] Medical Ce nter Future Scheduled 1989 DTAP/TDAP/TD [...] colon Medical Ce nter (procedure) [code = 219760284] Future Scheduled 1970 Screening for malignant [facility] 00:00:00 neoplasm of colon Medical Ce nter (procedure) [code = 539212967] Future Scheduled 1970 Sigmoidoscopy [facility]code = [facility]] [facility] Future Scheduled 1970 Screening for malignant [facility] 00:00:00 neoplasm of colon Medical Ce nter (procedure) [code = 141071283] Future Scheduled 1970 Screening for malignant [facility] 00:00:00 neoplasm of colon Medical Ce nter (procedure) [code = 967817488] Future Scheduled 1970 Sigmoidoscopy [code = [facility] S[facility]oscopy] Medical Cent[facility] r Future Scheduled 1970 CT Colonography (combo) [facility] 00:00:00 [code = CT Colonography [facility] (combo)] Future Scheduled 1970 Screening for malignant [facility] 00:00:00 neoplasm of colon Medical Ce nter (procedure) [code = 648182981] Future Scheduled 1970 Screening for malignant [facility] 00:00:00 neoplasm of colon Medical Ce nter (procedure) [code = 967978902] Future Scheduled 1970 Sigmoidoscopy [facility]code = [facility]oscopy] Medical Cente r Future Scheduled 1970 CT Colonography (combo) [facility] 00:00:00 [code = CT Colonography [facility] (com[facility])] Future Scheduled 1970 Screening for malignant [facility] 00:00:00 neoplasm of colon Medical Ce nter (procedure) [code = 942232564] Future Scheduled 1970 Screening for malignant [facility] 00:00:00 neoplasm of colon Medical Ce nter (procedure) [code = 420998393] Future Scheduled 1970 S[facility]oidoscopy [facility]code [facility] S[facility]oscopy] Medical Angele r Future Scheduled 1970 CT Colonography (combo) [facility] 00:00:00 [code = CT Colonography [facility] (combo)] Future Scheduled 1970 Screening for malignant [facility] 00:00:00 neoplasm of colon Medical Ce nter (procedure) [code = 796340526] Future Scheduled 1970 Screening for malignant [facility] 00:00:00 neoplasm of colon Medical Ce nter (procedure) [code = 737907791] Future Scheduled 1970 Sigmoidoscopy [facility]code [facility] S[facility]oscopy] Medical Angele r Future Scheduled 1970 CT Colonography (combo) [facility] 00:00:00 [code = CT Colonography [facility] (combo)] Future Scheduled 1970 Screening for malignant [facility] 00:00:00 neoplasm of colon Medical Ce nter (procedure) [code = 243581313] Future Scheduled 1970 Screening for malignant [facility] 00:00:00 neoplasm of colon Medical Ce nter (procedure) [code = 877814809] Future Scheduled 1970 Sigmoidoscopy [facility]code = [facility] S[facility]oscopy] Medical Cente r Future Scheduled 1970 CT Colonography (combo) [facility] 00:00:00 [code = CT Colonography [facility] (combo)] Future Scheduled 1970 Screening for malignant [facility] 00:00:00 neoplasm of colon Medical Ce nter (procedure) [code = 399322557] Future Scheduled 1970 Screening for malignant [facility] 00:00:00 neoplasm of colon Medical Ce nter (procedure) [code = 976705303] Future Scheduled 1970 Sigmoidoscopy [facility]code [facility] S[facility]oidoscopy] Medical Angele r Future Scheduled 1970 CT Colonography (combo) [facility] 00:00:00 [code = CT Colonography [facility] (combo)] Future Scheduled 1970 Screening for malignant [facility] 00:00:00 neoplasm of colon Medical Ce nter (procedure) [code = 096754993] Future Scheduled 1970 Screening for malignant [facility] 00:00:00 neoplasm of colon Medical Ce nter (procedure) [code = 826004152] Future Scheduled 1970 Sigmoidoscopy [facility]code = [facility] S[facility]oidoscopy] Medical Angele r Future Scheduled 1970 CT Colonography (combo) [facility] 00:00:00 [code = CT Colonography [facility] (combo)] Future Scheduled 1970 Screening for malignant [facility] 00:00:00 neoplasm of colon Medical Ce nter (procedure) [code = 180285787] Future Scheduled 1970 Screening for malignant [facility] 00:00:00 neoplasm of colon Medical Ce nter (procedure) [code = 259697571] Future Scheduled 1970 Sigmoidoscopy [facility]code [facility] S[facility]oidoscopy] Medical Seda r Future Scheduled 1970 CT Colonography (combo) [facility] 00:00:00 [code = CT Colonography [facility] (combo)] Future Scheduled 1970 Screening for malignant [facility] 00:00:00 neoplasm of colon Medical Ce nter (procedure) [code = 619622466] Future Scheduled 1970 Screening for malignant [facility] 00:00:00 neoplasm of colon Medical Ce nter (procedure) [code = 430339501] Future Scheduled 1970 Sigmoidoscopy [facility]code = [facility] S[facility]oidoscopy] Medical Angele r Future Scheduled 1970 CT Colonography (combo) [facility] 00:00:00 [code = CT Colonography [facility] (combo)] Future Scheduled 1970 Screening for malignant [facility] 00:00:00 neoplasm of colon Medical Ce nter (procedure) [code = 541049454] Future Scheduled 1970 Screening for malignant [facility] 00:00:00 neoplasm of colon Medical Ce nter (procedure) [code = 612950569] Future Scheduled 1970 Sigmoidoscopy [facility]code [facility]oscopy] Medical Cente r Future Scheduled 1970 CT Colonography (combo) [facility] 00:00:00 [code = CT Colonography [facility] (combo)] Future Scheduled 1970 Screening for malignant [facility] 00:00:00 neoplasm of colon Medical Ce nter (procedure) [code = 514255106] Future Scheduled 1970 Screening for malignant [facility] 00:00:00 neoplasm of colon Medical Ce nter (procedure) [code = 833532285] Future Scheduled 1970 Sigmoidoscopy [facility]code [facility] S[facility]oscopy] Medical Cente r Future Scheduled 1970 CT Colonography (combo) [facility] 00:00:00 [code = CT Colonography [facility] (combo)] Future Scheduled 1970 Screening for malignant [facility] 00:00:00 neoplasm of colon Medical Ce nter (procedure) [code = 329772353] Future Scheduled 1970 Screening for malignant [facility] 00:00:00 neoplasm of colon Medical Ce nter (procedure) [code = 946944843] Future Scheduled 1970 Sigmoidoscopy [code = [facility] S[facility]oidoscopy] Medical Cente r Future Scheduled 1970 CT Colonography (combo) [facility] 00:00:00 [code = CT Colonography [facility] (combo)] Future Scheduled 1970 Screening for malignant [facility] 00:00:00 neoplasm of colon Medical Ce nter (procedure) [code = 589658594] Future Scheduled 1970 Screening for malignant [facility] 00:00:00 neoplasm of colon Medical Ce nter (procedure) [code = 475410899] Future Scheduled 1970 Sigmoidoscopy [code = [facility] Sigmoidoscopy] Medical Angele r Future Scheduled 1970 CT Colonography (combo) [facility] 00:00:00 [code = CT Colonography [facility] (combo)] Future Scheduled 1970 Screening for malignant [facility] 00:00:00 neoplasm of colon Medical Ce nter (procedure) [code = 942242842] Future Scheduled 1970 Screening for malignant [facility] 00:00:00 neoplasm of colon Medical Ce nter (procedure) [code = 411386536] Future Scheduled 1970 Sigmoidoscopy [code = [facility] Sigmoidoscopy] Medical Angele r Future Scheduled 1970 CT Colonography (combo) [facility] 00:00:00 [code = CT Colonography [facility] (combo)] Future Scheduled 1970 Screening for malignant [facility] 00:00:00 neoplasm of colon Medical Ce nter (procedure) [code = 289937690] Future Scheduled 1970 Screening for malignant [facility] 00:00:00 neoplasm of colon Medical Ce nter (procedure) [code = 434452477] Future Scheduled 1970 Sigmoidoscopy [code [facility] S[facility]oidoscopy] Medical Angele r Future Scheduled 1970 CT Colonography (combo) [facility] 00:00:00 [code = CT Colonography [facility] (combo)] Future Scheduled 1970 Screening for malignant [facility] 00:00:00 neoplasm of colon Medical Ce nter (procedure) [code = 822848123] Future Scheduled 1970 Screening for malignant [facility] 00:00:00 neoplasm of colon Medical Ce nter (procedure) [code = 515519606] Future Scheduled 1970 Sigmoidoscopy [code = [facility] Sigmoidoscopy] Medical Angele r Future Scheduled 1970 CT Colonography (combo) [facility] 00:00:00 [code = CT Colonography [facility] (combo)] Future Scheduled 1970 Screening for malignant [facility] 00:00:00 neoplasm of colon Medical Ce nter (procedure) [code = 549258905] Future Scheduled 1970 Screening for malignant [facility] 00:00:00 neoplasm of colon Medical Ce nter (procedure) [code = 241746662] Future Scheduled 1970 Sigmoidoscopy [facility]code [facility] S[facility]oscopy] Medical Cente r Future Scheduled 1970 CT Colonography (combo) [facility] 00:00:00 [code = CT Colonography [facility] (combo)] Encounters Start End Encounter Admission Attending Care Care Encounter Source Date/Time Date/Time Type Type Clinicians Facility Department ID 2020-02-23 Inpatient HCAPM LENNY [id number] [facility] 18:42:00 89 [facility] 2020-02-17 Inpatient EM Avtar, HCAPM MAS [id number] [facility] 00:22:00 Oladipo 75 [facility] 2020-01-05 Inpatient UR Perea, HCAPM MEDI.01 [id number] [facility] 20:23:00 Mark 40 [facility] [place] 2019-12-13 Inpatient HCAMN JULIA [id number] [facility] 17:52:00 47 [facility] 2022-03-29 2022-03-29 Emergency EM White, HCACL AERS [id number] [facility] 14:26:00 16:45:00 Steve 28 [facility] 2022-03-29 2022-03-29 Emergency EM White, HCACL HCACL [id number] [facility] 14:26:00 16:45:00 Steve [id number] [facility] 2022-03-25 2022-03-26 Inpatient E RICHARD BL MED [id number] BL 13:38:00 10:16:00 , YESSI 2022-03-15 2022-03-[address] [facility] MED [id number] [facility] 13:36:00 18:59:00 NELSON 2022-03-13 2022-03-13 Emergency [facility] [id number] Lynne 15:33:00 20:25:00 [facility] 2022-03-13 2022-03-13 Emergency [facility] [id number] [place]ne 15:33:00 20:25:00 [facility] 2022-03-13 2022-03-13 Outpatient RONALD [facility] [id number] [place] 00:00:00 00:00:[address] [facility] 2022-03-06 2022-03-09 Inpatient ER LEÓN EARL Emergency [id number] SLE 12:16:00 12:55:00 2022-03-06 2022-03-09 [facility] [id number] 12:16:00 12:55:00 Encounter Dee Dee Montalvo Fang-Ying M edical Heinen, [facility] 2022-03-06 2022-03-09 [facility] [id number] 12:16:00 12:55:00 Encounter Dee Dee Montalvo Fang-Ying M edical Heinen, Allison P. [facility] León Bain [facility] 2022-03-06 2022-03-06 Outpatient [facility] [id number] [facility] 00:00:00 23:59:00 Cynthia 2022-03-06 2022-03-06 Orders [facility] [id number] 00:00:00 00:00:00 Only [facility] 2022-03-06 2022-03-06 Travel [facility] [id number] [facility] 00:[facility]00 00:00:00 [facility] 2022-03-06 2022-03-06 Orders [facility] [id number] 00:00:00 00:00:00 [facility] 2022-03-06 2022-03-06 Travel [facility] [id number] [facility] 00:00[facility]00 00:00:00 [facility] 2022-02-18 2022-02-20 Emergency Teddy Carbajal [facility] [id number] Anderson 13:58:00 11:55:00 Bernabe Calvert [facility] Tejas, Kobe Guillen 2022-02-18 2022-02-20 Emergency Teddy Carbajal [facility] [id number] [place] 13:58:00 11:55:00 Calvert, [facility] Tejas Rufino Kobe Chavez 2022-02-18 2022-02-18 Emergency [facility] [id number] [place] 15:19:05 15:23:18 [facility] 2022-02-18 2022-02-18 [facility] [id number] [place] 13:58:00 13:58:00 [facility] 2022-02-18 2022-02-18 Outpatient DENIZ [facility] [id number] Anderson 00:00:00 00:00:00 , OSCAR Daniels 2022-02-07 2022-02-11 [facility] [id number] [place] 13:40:00 13:22:00 Encounter Anton[facility] 2022-02-07 2022-02-11 [facility] [id number] [place] 13:40:00 13:22:00 Encounter Antonieta [facility] 2022-02-07 2022-02-07 Outpatient 1 MEGHAN ISLAS [facility] [id number] [place] 13:40:00 13:40:00 [facility] 2022-01-30 2022-01-30 Emergency EM Tara [facility] [id number] [facility] 17:02:00 18:29:00 Dwain 53 [facility] 2022-01-30 2022-01-30 Emergency SEAN Tara [facility] [id number] [facility] 17:02:00 18:29:00 Dwain [id number] [facility] 2022-01-22 2022-01-22 Emergency [facility] [id number] [place] 17:24:00 20:39:00 [facility] 2022-01-22 2022-01-22 Emergency [facility] [id number] [place] 17:24:00 20:39:00 [facility] 2022-01-16 2022-01-21 Emergency Raymon Martin [facility] [id number] Lynne 11:04:00 18:08:00 Karin Bassett [facility] Darrion Loera [facility] 2022-01-16 2022-01-21 Emergency Raymon Martin [facility] [id number] Lynne 11:04:00 18:08:00 Karin Bassett [facility] Darrion Loera [facility] 2022-01-19 2022-01-19 Outpatient [facility] [id number] Lynne 12:34:08 13:29:31 [facility] 2022-01-16 2022-01-16 Outpatient [facility] [id number] [place] 19:42:28 20:01:28 [facility] 2022-01-16 2022-01-16 Outpatient 1 DANYELLE [facility] [id number] [place] 11:04:00 11:04:00 KARIN Daniels 2022-01-10 2022-01-11 Emergency Bert Reed [facility] [id number] [place] 10:58:00 11:20:00 [facility] 2022-01-10 2022-01-11 Emergency Bert Reed [facility] [id number] Lynne 10:58:00 11:20:00 [facility] 2022-01-10 [facility] [id number] [place] 10:58:00 10:58:00 [facility] [address] 2022-01-08 2022-01-09 Emergency [facility] [id number] Lynne 17:57:00 02:50:00 [facility] 2022-01-08 2022-01-09 Emergency [facility] [id number] Lynne 17:57:00 02:50:00 [facility] 2022-01-08 2022-01-08 Emergency [facility] [id number] Lynne 21:40:34 21:50:19 [facility] 2021-09-23 2021-09-23 Emergency Raffaele Pitts [facility] AERS [id number] [facility] 19:35:00 21:10:[address] [place] [address] 2021-09-13 2021-09-13 Emergency EM Raffaele Levi HC[facility] AERS [id number] [facility] 14:57:00 16:37:00 06 [facility] 2021-07-27 2021-07-27 Emergency EM Kateryna, HCAMN JULIA [id number] [facility] 10:15:00 12:36:00 Tarek 17 [facility] 2021-07-22 2021-07-22 Emergency EM Marcelina, HCACL AERS [id number] [facility] 04:25:00 08:20:00 Tarrell 74 [facility] 2021-06-27 2021-06-27 Emergency EM White, HCACL AERS [id number] [facility] 15:31:00 17:37:00 Steve Pollard [facility] 2021-04-28 2021-05-01 Inpatient EM Aisha, HCACL MAS [id number] [facility] 21:05:00 14:18:00 Maximilianopher 03 Cl ear [facility] 2020-02-24 2020-02-24 Outpatient Eliazar, HCACL LABO [id number] [facility] 07:51:00 07:51:00 Mark 96 [facility] 2020-02-18 2020-02-18 Outpatient Avtar, HCACL LABO [id number] [facility] 00:26:00 00:26:00 Oladipo 05 [facility] 2020-01-05 2020-01-05 Outpatient Eliazar HCACL [facility] [id number] [facility] 23:52:00 23:52:00 Mark 24 [facility] 2017-11-02 2017-11-02 Emergency E [facility] MED [id number] 08:33:00 08:33:00 [facility] 2017-08-05 2017-08-05 Outpatient [facility] [id number] [place] 00:00:00 00:00:00 [facility] 2017-07-28 2017-07-28 Outpatient [facility] [id number] [place] 00:00:00 00:00:00 [facility] 2017-06-24 2017-06-24 Outpatient [facility] [id number] [place] 00:00:00 00:00:00 [facility] 2017-06-22 2017-06-22 Emergency [facility] [id number] [place] 21:37:29 21:37:29 Health 2017-06-22 2017-06-22 Emergency [facility] [id number] [place] 21:06:00 21:06:00 Health 2017-06-22 2017-06-22 Outpatient [facility] [id number] [place] 10:02:31 10:02:31 Health 2017-06-09 2017-06-09 Outpatient [facility] [id number] [place] 00:00:00 00:00:00 Health 2017-06-09 2017-06-09 Outpatient [facility] [id number] [place] 00:00:00 00:00:00 [facility] 2017-05-08 2017-05-08 Emergency [facility] [id number] [place] 01:04:44 01:04:44 [facility] 2017-05-05 2017-05-05 Emergency E [facility] MED [id number] 08:11:00 08:11:00 [facility] 2017-04-15 2017-04-15 Emergency E [facility] MED [id number] 09:53:00 09:53:00 [facility] 2017-04-14 2017-04-14 Outpatient [facility] [id number] [place] 13:31:02 13:31:02 Health Results Test Description Test [...] = MX#) 0.5 k/mm3 0.1-0.8 N TROPONIN-I [id number] 15:07:00 Test Item Value Reference Range Interpretation Comments TROPONIN-I RAPID 0.00 ng/mL 0.00-0.08 N Performed b y certified (test code = extractor and wringer operator at [facility] TROPIRAP) Ctr Negative: < = 0.08 [...] onin levels characteristic of [place]. BASIC METABOLIC [id number] 14:56:00 Test Item Value Reference Range Interpretation [...] MG/DL 70-110 N - XR CHEST 1 [id number] 00:00:00 [facility] MARIA ISABEL JOSEPH : 1970 Sex: M FAX: Steve Urias MD [phone] [place]: DC St: REG Name: MARIA ISABEL JOSEPH FSED : 1970 Age/S: 52/M [address] [facility] Unit #: [id number] Loc: [place] [address] Phys: Steve Urias MD Acct: [id number] DisDate: Status: REG ER PHONE #: Exam Date: 03/29/2022 1501 FAX #: Reason: Weakness EXAMS: CPT CODE: [id number] XR CHEST 1 V 22501 PROCEDURE INFORMATION: Exam: XR Chest Exam date [...] 03/29/2022 (1531) PAGE 1 Signed ReportHEPATIC FUNCTION [id number] 06:45:03 Test Item Value Reference Range Interpretation [...] (test code = 13 U/L 6-55 347) 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 Fact Sheet for Healthcare Providers: https://www.Procurify/Documents/Xp ert%20Xpress%20SAR S%20CoV-2/Fact%20S heets/302-3802%20S ARS-COV-2%20HEALTH CARE%20PROVIDERS%2 0FACT%20SHEET.pdf Fact Sheet for Healthcare Patients: https://www.Procurify/Documents/Xp ert%20Xpress%20SAR S%20CoV-2/Fact%20S heets/302-3801%20S ARS-COV-2%20PATIEN T%20FACT%20SHEET.p df Lab Interpretation Normal (test code = 00096-3) [facility] 19:17:07 Test Item Value Reference Interpretation Comments Range SARS-COV2/RT-PCR Negative Negative The SARS-Co V-2 (test code = target nucleic 30471-6) acids are not detected in thi s [...] revoked sooner. Fact Sheet for Healthcare Providers: https://www.Procurify/Documents/Xp ert%20Xpress%20SAR S%20CoV-2/Fact%20S heets/302-3802%20S ARS-COV-2%20HEALTH CARE%20PROVIDERS%2 0FACT%20SHEET.pdf Fact Sheet for Healthcare Patients: https://www.Procurify/Documents/Xp ert%20Xpress%20SAR S%20CoV-2/Fact%20S heets/302-3801%20S ARS-COV-2%20PATIEN T%20FACT%20SHEET.p df Lab Interpretation Normal (test code = 89053-7) [facility] 19:17:07 Test Item Value Reference Interpretation Comments Range SARS-COV2/RT-PCR Negative Negative The SARS-Co V-2 (test code = target nucleic 95913-4) acids are not detected in thi s [...] revoked sooner. Fact Sheet for Healthcare Providers: https://www.Procurify/Documents/Xp ert%20Xpress%20SAR S%20CoV-2/Fact%20S heets/302-3802%20S ARS-COV-2%20HEALTH CARE%20PROVIDERS%2 0FACT%20SHEET.pdf Fact Sheet for Healthcare Patients: https://www.Procurify/Documents/Xp ert%20Xpress%20SAR S%20CoV-2/Fact%20S heets/302-3801%20S ARS-COV-2%20PATIEN T%20FACT%20SHEET.p df Lab Interpretation Normal (test code = 21168-2) [facility]22-03-06 19:17:07 Test Item Value Reference Interpretation Comments Range SARS-COV2/RT-PCR Negative Negative The SARS-Co V-2 (test code = target nucleic 49778-5) acids are not detected in thi s [...] om SARS-CoV-2 in a [facility] s suspected of COVID-19 [...] revoked sooner. Fact Sheet for Healthcare Providers: https://www.Procurify/Documents/Xp ert%20Xpress%20SAR S%20CoV-2/Fact%20S heets/302-3802%20S ARS-COV-2%20HEALTH CARE%20PROVIDERS%2 0FACT%20SHEET.pdf Fact Sheet for Healthcare Patients: https://wwwAdmitSee/Documents/Xp ert%20Xpress%20SAR S%20CoV-2/Fact%20S heets/302-3801%20S ARS-COV-2%20PATIEN T%20FACT%20SHEET.p df Lab Interpretation Normal (test code = 34221-6) [facility]2022-03-06 19:17:07 Test Item Value Reference Interpretation Comments Range SARS-COV2/RT-PCR Negative Negative The SARS-Co V-2 (test code = target nucleic 43026-0) acids are not detected in thi s [...] revoked sooner. Fact Sheet for Healthcare Providers: https://www.Procurify/Documents/Xp ert%20Xpress%20SAR S%20CoV-2/Fact%20S heets/302-3802%20S ARS-COV-2%20HEALTH CARE%20PROVIDERS%2 0FACT%20SHEET.pdf Fact Sheet for Healthcare Patients: https://www.Procurify/Documents/Xp ert%20Xpress%20SAR S%20CoV-2/Fact%20S heets/302-3801%20S ARS-COV-2%20PATIEN T%20FACT%20SHEET.p df Lab Interpretation Normal (test code = 33357-5) [facility]2022-03-06 19:17:07 Test Item Value Reference Interpretation Comments Range SARS-COV2/RT-PCR Negative Negative The SARS-Co V-2 (test code = target nucleic 31832-5) acids are not detected in thi s [...] revoked sooner. Fact Sheet for Healthcare Providers: https://www.Procurify/Documents/Xp ert%20Xpress%20SAR S%20CoV-2/Fact%20S heets/302-3802%20S ARS-COV-2%20HEALTH CARE%20PROVIDERS%2 0FACT%20SHEET.pdf Fact Sheet for Healthcare Patients: https://wwwAdmitSee/Documents/Xp ert%20Xpress%20SAR S%20CoV-2/Fact%20S heets/302-3801%20S ARS-COV-2%20PATIEN T%20FACT%20SHEET.p df Lab Interpretation Normal (test code = 93161-0) [facility]2022-03-06 19:17:07 Test Item Value Reference Interpretation Comments Range SARS-COV2/RT-PCR Negative Negative The SARS-Co V-2 (test code = target nucleic 25131-6) acids are not detected in thi s [...] revoked sooner. Fact Sheet for Healthcare Providers: https://www.Procurify/Documents/Xp ert%20Xpress%20SAR S%20CoV-2/Fact%20S heets/302-3802%20S ARS-COV-2%20HEALTH CARE%20PROVIDERS%2 0FACT%20SHEET.pdf Fact Sheet for Healthcare Patients: https://www.Procurify/Documents/Xp ert%20Xpress%20SAR S%20CoV-2/Fact%20S heets/302-3801%20S ARS-COV-2%20PATIEN T%20FACT%20SHEET.p df Lab Interpretation Normal (test code = 84746-2) [facility]2022-03-06 19:17:07 Test Item Value Reference Interpretation Comments Range SARS-COV2/RT-PCR Negative Negative The SARS-Co V-2 (test code = target nucleic 74117-6) acids are not detected in thi s [...] revoked sooner. Fact Sheet for Healthcare Providers: https://www.Procurify/Documents/Xp ert%20Xpress%20SAR S%20CoV-2/Fact%20S heets/302-3802%20S ARS-COV-2%20HEALTH CARE%20PROVIDERS%2 0FACT%20SHEET.pdf Fact Sheet for Healthcare Patients: https://www.Procurify/Documents/Xp ert%20Xpress%20SAR S%20CoV-2/Fact%20S heets/302-3801%20S ARS-COV-2%20PATIEN T%20FACT%20SHEET.p df Lab Interpretation Normal (test code = 03729-8) [facility]2022-03-06 19:17:07 Test Item Value Reference Interpretation Comments Range SARS-COV2/RT-PCR Negative Negative The SARS-Co V-2 (test code = target nucleic 69331-6) acids are not detected in thi s [...] revoked sooner. Fact Sheet for Healthcare Providers: https://www.Procurify/Documents/Xp ert%20Xpress%20SAR S%20CoV-2/Fact%20S heets/302-3802%20S ARS-COV-2%20HEALTH CARE%20PROVIDERS%2 0FACT%20SHEET.pdf Fact Sheet for Healthcare Patients: https://www.Procurify/Documents/Xp ert%20Xpress%20SAR S%20CoV-2/Fact%20S heets/302-3801%20S ARS-COV-2%20PATIEN T%20FACT%20SHEET.p df Lab Interpretation Normal (test code = 52952-6) [facility]2022-03-06 19:17:07 Test Item Value Reference Interpretation Comments Range SARS-COV2/RT-PCR Negative Negative The SARS-Co V-2 (test code = target nucleic 48247-3) acids are not detected in thi s [...] revoked sooner. Fact Sheet for Healthcare Providers: https://www.Procurify/Documents/Xp ert%20Xpress%20SAR S%20CoV-2/Fact%20S heets/302-3802%20S ARS-COV-2%20HEALTH CARE%20PROVIDERS%2 0FACT%20SHEET.pdf Fact Sheet for Healthcare Patients: https://www.Procurify/Documents/Xp ert%20Xpress%20SAR S%20CoV-2/Fact%20S heets/302-3801%20S ARS-COV-2%20PATIEN T%20FACT%20SHEET.p df Lab Interpretation Normal (test code = 53744-3) [facility]2022-03-06 19:17:07 Test Item Value Reference Interpretation Comments Range SARS-COV2/RT-PCR Negative Negative The SARS-Co V-2 (test code = target nucleic 66751-5) acids are not detected in thi s [...] revoked sooner. Fact Sheet for Healthcare Providers: https://www.Procurify/Documents/Xp ert%20Xpress%20SAR S%20CoV-2/Fact%20S heets/302-3802%20S ARS-COV-2%20HEALTH CARE%20PROVIDERS%2 0FACT%20SHEET.pdf Fact Sheet for Healthcare Patients: https://www.Procurify/Documents/Xp ert%20Xpress%20SAR S%20CoV-2/Fact%20S heets/302-3801%20S ARS-COV-2%20PATIEN T%20FACT%20SHEET.p df Lab Interpretation Normal (test code = 98277-9) [facility]2022-03-06 19:17:07 Test Item Value Reference Interpretation Comments Range SARS-COV2/RT-PCR Negative Negative The SARS-Co V-2 (test code = target nucleic 94663-7) acids are not detected in thi s [...] revoked sooner. Fact Sheet for Healthcare Providers: https://www.Procurify/Documents/Xp ert%20Xpress%20SAR S%20CoV-2/Fact%20S heets/302-3802%20S ARS-COV-2%20HEALTH CARE%20PROVIDERS%2 0FACT%20SHEET.pdf Fact Sheet for Healthcare Patients: https://www.Procurify/Documents/Xp ert%20Xpress%20SAR S%20CoV-2/Fact%20S heets/302-3801%20S ARS-COV-2%20PATIEN T%20FACT%20SHEET.p df Lab Interpretation Normal (test code = 40963-5) [facility]2022-03-06 19:17:07 Test Item Value Reference Interpretation Comments Range SARS-COV2/RT-PCR Negative Negative The SARS-Co V-2 (test code = target nucleic 24179-5) acids are not detected in thi s [...] revoked sooner. Fact Sheet for Healthcare Providers: https://www.Procurify/Documents/Xp ert%20Xpress%20SAR S%20CoV-2/Fact%20S heets/3023802%20S ARS-COV-2%20HEALTH CARE%20PROVIDERS%2 0FACT%20SHEET.pdf Fact Sheet for Healthcare Patients: https://www.Procurify/Documents/Xp ert%20Xpress%20SAR S%20CoV-2/Fact%20S heets/302-3801%20S ARS-COV-2%20PATIEN T%20FACT%20SHEET.p df Lab Interpretation Normal (test code = 67031-3) [facility]2022-03-06 19:17:07 Test Item Value Reference Interpretation Comments Range SARS-COV2/RT-PCR Negative Negative The SARS-Co V-2 (test code = target nucleic 51120-1) acids are not detected in thi s [...] revoked sooner. Fact Sheet for Healthcare Providers: https://www.Procurify/Documents/Xp ert%20Xpress%20SAR S%20CoV-2/Fact%20S heets/302-3802%20S ARS-COV-2%20HEALTH CARE%20PROVIDERS%2 0FACT%20SHEET.pdf Fact Sheet for Healthcare Patients: https://www.Procurify/Documents/Xp ert%20Xpress%20SAR S%20CoV-2/Fact%20S heets/302-3801%20S ARS-COV-2%20PATIEN T%20FACT%20SHEET.p df Lab Interpretation Normal (test code = 54311-1) [facility]2022-03-06 19:17:07 Test Item Value Reference Interpretation Comments Range SARS-COV2/RT-PCR Negative Negative The SARS-Co V-2 (test code = target nucleic 42259-4) acids are not detected in thi s [...] revoked sooner. Fact Sheet for Healthcare Providers: https://www.Procurify/Documents/Xp ert%20Xpress%20SAR S%20CoV-2/Fact%20S heets/302-3802%20S ARS-COV-2%20HEALTH CARE%20PROVIDERS%2 0FACT%20SHEET.pdf Fact Sheet for Healthcare Patients: https://www.Procurify/Documents/Xp ert%20Xpress%20SAR S%20CoV-2/Fact%20S heets/302-3801%20S ARS-COV-2%20PATIEN T%20FACT%20SHEET.p df Lab Interpretation Normal (test code = 88499-8) [facility]2022-03-06 19:17:07 Test Item Value Reference Interpretation Comments Range SARS-COV2/RT-PCR Negative Negative The SARS-Co V-2 (test code = target nucleic 60116-3) acids are not detected in thi s [...] revoked sooner. Fact Sheet for Healthcare Providers: https://www.Procurify/Documents/Xp ert%20Xpress%20SAR S%20CoV-2/Fact%20S heets/3023802%20S ARS-COV-2%20HEALTH CARE%20PROVIDERS%2 0FACT%20SHEET.pdf Fact Sheet for Healthcare Patients: https://www.Procurify/Documents/Xp ert%20Xpress%20SAR S%20CoV-2/Fact%20S heets/302-3801%20S ARS-COV-2%20PATIEN T%20FACT%20SHEET.p df Lab Interpretation Normal (test code = 60183-5) [facility]2022-03-06 19:17:07 Test Item Value Reference Interpretation Comments Range SARS-COV2/RT-PCR Negative Negative The SARS-Co V-2 (test code = target nucleic 94820-5) acids are not detected in thi s [...] revoked sooner. Fact Sheet for Healthcare Providers: https://www.Procurify/Documents/Xp ert%20Xpress%20SAR S%20CoV-2/Fact%20S heets/302-3802%20S ARS-COV-2%20HEALTH CARE%20PROVIDERS%2 0FACT%20SHEET.pdf Fact Sheet for Healthcare Patients: https://www.Procurify/Documents/Xp ert%20Xpress%20SAR S%20CoV-2/Fact%20S heets/302-3801%20S ARS-COV-2%20PATIEN T%20FACT%20SHEET.p df Lab Interpretation Normal (test code = 36582-5) [facility]2022-03-06 19:17:07 Test Item Value Reference Interpretation Comments Range SARS-COV2/RT-PCR Negative Negative The SARS-Co V-2 (test code = target nucleic 03646-0) acids are not detected in thi s [...] revoked sooner. Fact Sheet for Healthcare Providers: https://www.Procurify/Documents/Xp ert%20Xpress%20SAR S%20CoV-2/Fact%20S heets/302-3802%20S ARS-COV-2%20HEALTH CARE%20PROVIDERS%2 0FACT%20SHEET.pdf Fact Sheet for Healthcare Patients: https://www.Procurify/Documents/Xp ert%20Xpress%20SAR S%20CoV-2/Fact%20S heets/302-3801%20S ARS-COV-2%20PATIEN T%20FACT%20SHEET.p df Lab Interpretation Normal (test code = 72209-5) [facility]2022-03-06 19:17:07 Test Item Value Reference Range Interpretation Comments SARS-COV2/RT-PCR Negative Negative The SARS-Co V-2 target (test code = nucleic acids a re not 2302010) detected in thi s specimen. Negative result [...] of CO VID-19 by [facility]. This test has been [...] revoked sooner. Fact Sheet for Healthcare Providers: https://www.Exercise the World m/Documents/Xpert%20Xpress%20SARS%20CoV-2/Fact%20Sheets/302-3802%35IRVX-AIC-6%20 HEALTHCARE%20PROVIDERS%20FACT%20SHEET.pdf Fact Sheet for Healthcare Patients: https://www.99times.cn/Documents/Xpert%20Xp ress%20SARS%20CoV-2/Fact%20Sheets/302-3801%84BCXN-AZM-3%20PATIENT%20FACT%20SHEET .pdfCREATINE KINASE (CK)2022-03-06 16:19:14 Test Item Value Reference Range Interpretation Comments CREATINE KINASE TOTAL (BEAKER) (test 141 U/L 29-200 code = 380) Tank Truck Operator ID - BST4, [id number] 15:13:16 Test Item Value Reference Range Interpretation Comments FREE T4 (BEAKER) (test code = 655) 0.95 ng/dL 0.70-1.48 Tank Truck Operator ID - BSTSH/FREE T4 IF [id number] 15:13:16 Test Item Value Reference Range Interpretation Comments THYROID STIMULATING HORMONE 2.060 uIU/mL 0.350-4.940 (GILMAR) (test code = 772) Tank Truck Operator ID - BSB-TYPE NATRIURETIC FACTOR (BNP)2022-03-06 14:26:30 Test Item Value Reference Range Interpretation Comments B-TYPE NATRIURETIC PEPTIDE (KINGAKER) < pg/mL 0-100 (test code = 700) Tank Truck Operator ID - JSHIGH SENSITIVITY TROPONIN [id number] 14:14:54 Test Item Value Reference Range Interpretation Comments HIGH SENSITIVITY < pg/ml See_Comment [Automated message] TROPONIN I (test code = The system which 0375456) generated this result transmitted ref erence range: <=35. Th e reference range was not used to interpr et this result as normal/abnormal . Tank Truck Operator ID - JSThe PIGMENT PUMPER STAT High Sensitivity Troponin-I results should be used in conjunctionwith other diagnostic information such as ECG, clinical observations and information, and patient symptoms to aid in the diagnosis of [facility].RAD, CHEST, 1 VIEW, NON [id number] 14:10:00Reason for exam:- >NEUROLOGIC PROBLEMShould this be performed at the bedside?->Yes [facility] 1970 [...] Brown Verified Date/Time: 03/06/2022 14:10:44 REHENSIVE METABOLIC [id number] 14:08:22 Test Item Value Reference Range Interpretation [...] S NOT APPLICABLE FOR DIALYSIS PATIEN TS. Tank Truck Operator ID - [id number] 14:07:49 Test Item Value Reference Range Interpretation Comments MAGNESIUM (BEAKER) (test code = 2.0 mg/dL 1.6-2.6 627) Tank Truck Operator ID - [id number] 14:07:49 Test Item Value Reference Range Interpretation Comments PHOSPHORUS (BEAKER) (test code = 5.6 mg/dL 2.3-4.7 H 604) Tank Truck Operator ID - JSLACTIC ACID, [id number] 13:51:04 Test Item Value Reference Range Interpretation Comments LACTATE BLOOD VENOUS 1.32 mmol/L 0.50-2.20 Specime n slightly (2) (BEAKER) (test hemolyzed code = 5262) Tank Truck Operator ID - JSCBC W/PLT COUNT & AUTO [id number] 13:47:24 Test Item Value Reference Range Interpretation [...] (BEAKER) (test code = 2801) Coronavirus, CoVID-19, [id number] 01:07:20 Test Item Value Reference Range Interpretation Comments COVID-19 (SARS-COV-2) Not Detected Not Detected INTERP RETATION: No (test code = 95290-8) detect able levels of SARS-CoV-2 Coronavirus (COVID-19) [...] SARS-CoV-2 mole cular diagnostic assa y utilizes Redye Hand Mediated Amplification ( TMA) technology to r apidly detect the SARS -CoV-2 (COVID-19) viru s from respiratory adriana ples. In accordance w ith the FDA's kamran nce document "Polic y for Diagnostic Test s for Coronavirus Disease-2019 du [facility] the [facility]", thi s test was developed, and its performance characteristics were verified by the [facility] molecular diagn ostics laboratory and is authorized for clinical diagno stic use. This labor atory is certified un est[place] the Clinical Laboratory Improvement Amendments (CLI A) as qualified to pe rform high complexity clinical labora tory testing. Lab Interpretation Normal (test code = 72055-3) [facility] CoVID-19, [id number] 01:07:20 Test Item Value Reference Range Interpretation Comments COVID-19 (SARS-COV-2) Not Detected Not Detected INTERP RETATION: No (test code = 10221-9) detect able levels of SARS-CoV-2 Coronavirus (COVID-19) [...] SARS-CoV-2 mole cular diagnostic assa y utilizes Redye Hand Mediated Amplification ( TMA) technology to r apidly detect the SARS -CoV-2 (COVID-19) viru s from respiratory adriana ples. In accordance w ith the FDA's kamran nce document "Polic y for Diagnostic Test s for Coronavirus Disease-[address] [facility] the [facility]", thi s test was developed, and its performance characteristics were verified by the [facility] molecular diagn ostics laboratory and is authorized for clinical diagno stic use. This labor atory is certified un [place] the Clinical Laboratory Improvement Amendments (CLI A) as qualified to pe rform high complexity clinical labora tory testing. Lab Interpretation Normal (test code = 00808-5) Maged Ruelasronavirus, CoVID-19, [id number] 01:07:20 Test Item Value Reference Range Interpretation Comments COVID-19 (SARS-COV-2) Not Detected Not Detected INTERP RETATION: No (test code = 65657-2) detect able levels of SARS-CoV-2 Coronavirus (COVID-19) [...] SARS-CoV-2 mole cular diagnostic assa y utilizes Redye Hand Mediated Amplification ( TMA) technology to r apidly detect the SARS -CoV-2 (COVID-19) viru s from respiratory adriana ples. In accordance w ith the FDA's kamran nce document "Polic y for Diagnostic Test s for Coronavirus Disease-[address] [facility] the [facility]", thi s test was developed, and its performance characteristics were verified by the [facility] molecular diagn ostics laboratory and is authorized for clinical diagno stic use. This labor atory is certified un [place] the Clinical Laboratory Improvement Amendments (CLI A) as qualified to pe rform high complexity clinical labora tory testing. Lab Interpretation Normal (test code = 35872-7) [facility] Hospital[facility]avirus, CoVID-19, [id number] 01:07:20 Test Item Value Reference Range Interpretation Comments COVID-19 (SARS-COV-2) Not Detected Not Detected INTERP RETATION: No (test code = 56958-8) detect able levels of SARS-CoV-2 Coronavirus (COVID-19) [...] SARS-CoV-2 mole cular diagnostic assa y utilizes Redye Hand Mediated Amplification ( TMA) technology to r apidly detect the SARS -CoV-2 (COVID-19) viru s from respiratory adriana ples. In accordance w ith the FDA's kamran nce document "Polic y for Diagnostic Test s for Coronavirus Disease-[address] [facility] the [facility]", thi s test was developed, and its performance characteristics were verified by the [facility] molecular diagn ostics laboratory and is authorized for clinical diagno stic use. This labor atory is certified un [place] the Clinical Laboratory Improvement Amendments (CLI A) as qualified to rform high complexity clinical labora tory testing. Lab Interpretation Normal (test code = 70370-9) [facility], CoVID-19, [id number] 01:07:20 Test Item Value Reference Range Interpretation Comments COVID-19 (SARS-COV-2) Not Detected Not Detected INTERP RETATION: No (test code = 90885-8) detect able levels of SARS-CoV-2 Coronavirus (COVID-19) [...] SARS-CoV-2 mole cular diagnostic assa y utilizes Redye Hand Mediated Amplification ( TMA) technology to r apidly detect the SARS -CoV-2 (COVID-19) viru s from respiratory adriana ples. In accordance w ith the FDA's kamran nce document "Polic y for Diagnostic Test s for Coronavirus Disease-[address] [facility] the [facility]", thi s test was developed, and its performance characteristics were verified by the [facility] molecular diagn ostics laboratory and is authorized for clinical diagno stic use. This labor atory is certified un [place] the Clinical Laboratory Improvement Amendments (CLI A) as qualified to pe rform high complexity clinical labora tory testing. Lab Interpretation Normal (test code = 18010-6) Maged Aaronavirus, CoVID-19, [id number] 01:07:20 Test Item Value Reference Range Interpretation Comments COVID-19 (SARS-COV-2) Not Detected Not Detected INTERP RETATION: No (test code = 81164-0) detect able levels of SARS-CoV-2 Coronavirus (COVID-19) [...] SARS-CoV-2 mole cular diagnostic assa y utilizes Redye Hand Mediated Amplification ( TMA) technology to r apidly detect the SARS -CoV-2 (COVID-19) viru s from respiratory adriana ples. In accordance w ith the FDA's kamran nce document "Polic y for Diagnostic Test s for Coronavirus Disease-2019 du [facility]", thi s test was developed, and its performance characteristics were verified by the [facility] molecular diagn ostics laboratory and is authorized for clinical diagno stic use. This labor atory is certified un [place] the Clinical Laboratory Improvement Amendments (CLI A) as qualified to pe rform high complexity clinical labora tory testing. Lab Interpretation Normal (test code = 70767-9) Maged Aaronavirus, CoVID-19, [id number] 01:07:20 Test Item Value Reference Range Interpretation Comments COVID-19 (SARS-COV-2) Not Detected Not Detected INTERP RETATION: No (test code = 21290-5) detect able levels of SARS-CoV-2 Coronavirus (COVID-19) [...] SARS-CoV-2 mole cular diagnostic assa y utilizes Redye Hand Mediated Amplification ( TMA) technology to r apidly detect the SARS -CoV-2 (COVID-19) viru s from respiratory adriana ples. In accordance w ith the FDA's kamran nce document "Polic y for Diagnostic Test s for Coronavirus Disease-[address] [facility] the [facility]", thi s test was developed, and its performance characteristics were verified by the [facility] molecular diagn ostics laboratory and is authorized for clinical diagno stic use. This labor atory is certified un [place] the Clinical Laboratory Improvement Amendments (CLI A) as qualified to pe rform high complexity clinical labora tory testing. Lab Interpretation Normal (test code = 35925-1) [facility], CoVID-19, [id number] 01:07:20 Test Item Value Reference Range Interpretation Comments COVID-19 (SARS-COV-2) Not Detected Not Detected INTERP RETATION: No (test code = 15313-5) detect able levels of SARS-CoV-2 Coronavirus (COVID-19) [...] SARS-CoV-2 mole cular diagnostic assa y utilizes Redye Hand Mediated Amplification ( TMA) technology to r apidly detect the SARS -CoV-2 (COVID-19) viru s from respiratory adriana ples. In accordance w ith the FDA's kamran nce document "Polic y for Diagnostic Test s for Coronavirus Disease-2019 du ring the Public [facility] th Emergency", thi s test was developed, and its performance characteristics were verified by the [facility] molecular diagn ostics laboratory and is authorized for clinical diagno stic use. This labor atory is certified un estevan the Clinical Laboratory Improvement Amendments (CLI A) as qualified to pe rform high complexity clinical labora tory testing. Lab Interpretation Normal (test code = 76958-7) [facility], [facility] [id number] 01:07:20 Test Item Value Reference Range Interpretation Comments COVID-19 (SARS-COV-2) Not Detected Not Detected INTERP RETATION: No (test code = 48351-0) detect able levels of SARS-CoV-2 Coronavirus (COVID-19) [...] SARS-CoV-2 mole cular diagnostic assa y utilizes Redye Hand Mediated Amplification ( TMA) technology to r apidly detect the SARS -CoV-2 (COVID-19) viru s from respiratory adriana ples. In accordance w ith the FDA's kamran nce document "Polic y for Diagnostic Test s for Coronavirus Disease-2019 du ring the Public [facility] th Emergency", thi s test was developed, and its performance characteristics were verified by the [facility] molecular diagn ostics laboratory and is authorized for clinical diagno stic use. This labor atory is certified un est[place] the Clinical Laboratory Improvement Amendments (CLI A) as qualified to pe rform high complexity clinical labora tory testing. Lab Interpretation Normal (test code = 75611-5) Maged Ruelasronavirus, CoVID-19, [id number] 01:07:20 Test Item Value Reference Range Interpretation Comments COVID-19 (SARS-COV-2) Not Detected Not Detected INTERP RETATION: No (test code = 63532-7) detect able levels of SARS-CoV-2 Coronavirus (COVID-19) [...] SARS-CoV-2 mole cular diagnostic assa y utilizes Redye Hand Mediated Amplification ( TMA) technology to r apidly detect the SARS -CoV-2 (COVID-19) viru s from respiratory adriana ples. In accordance w ith the FDA's kamran nce document "Polic y for Diagnostic Test s for Coronavirus Disease-2019 du ring the Public [facility] Emergency", thi s test was developed, and its performance characteristics were verified by the [facility] molecular diagn ostics laboratory and is authorized for clinical diagno stic use. This labor atory is certified un est[place] the Clinical Laboratory Improvement Amendments (CLI A) as qualified to pe rform high complexity clinical labora tory testing. Lab Interpretation Normal (test code = 01747-8) Maged Ruelasronavirus, CoVID-19, [id number] 01:07:20 Test Item Value Reference Range Interpretation Comments COVID-19 (SARS-COV-2) Not Detected Not Detected INTERP RETATION: No (test code = 95057-8) detect able levels of SARS-CoV-2 Coronavirus (COVID-19) [...] SARS-CoV-2 mole cular diagnostic assa y utilizes Redye Hand Mediated Amplification ( TMA) technology to r apidly detect the SARS -CoV-2 (COVID-19) viru s from respiratory adriana ples. In accordance w ith the FDA's kamran nce document "Polic y for Diagnostic Test s for Coronavirus Disease-[address] [facility] the [facility] Emergency", thi s test was developed, and its performance characteristics were verified by the [facility] molecular diagn ostics laboratory and is authorized for clinical diagno stic use. This labor atory is certified un est[place] the Clinical Laboratory Improvement Amendments (CLI A) as qualified to pe rform high complexity clinical labora tory testing. Lab Interpretation Normal (test code = 34548-3) [facility], [facility], [id number] 01:07:20 Test Item Value Reference Range Interpretation Comments COVID-19 (SARS-COV-2) Not Detected Not Detected INTERP RETATION: No (test code = 96425-5) detect able levels of SARS-CoV-2 Coronavirus (COVID-19) [...] SARS-CoV-2 mole cular diagnostic assa y utilizes Redye Hand Mediated Amplification ( TMA) technology to r apidly detect the SARS -CoV-2 (COVID-19) viru s from respiratory adriana ples. In accordance w ith the FDA's kamran nce document "Polic y for Diagnostic Test s for Coronavirus Disease-2019 du ring the Public [facility] Emergency", thi s test was developed, and its performance characteristics were verified by the [facility] molecular diagn ostics laboratory and is authorized for clinical diagno stic use. This labor atory is certified un [place] the Clinical Laboratory Improvement Amendments (CLI A) as qualified to pe rform high complexity clinical labora tory testing. Lab Interpretation Normal (test code = 21492-8) [facility]-19, [id number] 01:07:20 Test Item Value Reference Range Interpretation Comments COVID-19 (SARS-COV-2) Not Detected Not Detected INTERP RETATION: No (test code = 31227-4) detect able levels of SARS-CoV-2 Coronavirus (COVID-19) [...] SARS-CoV-2 mole cular diagnostic assa y utilizes Redye Hand Mediated Amplification ( TMA) technology to r apidly detect the SARS -CoV-2 (COVID-19) viru s from respiratory adriana ples. In accordance w ith the FDA's kamran nce document "Polic y for Diagnostic Test s for Coronavirus Disease-2019 du ring the Public [facility] Emergency", thi s test was developed, and its performance characteristics were verified by the [facility] molecular diagn ostics laboratory and is authorized for clinical diagno stic use. This labor atory is certified un [place] the Clinical Laboratory Improvement Amendments (CLI A) as qualified to pe rform high complexity clinical labora tory testing. Lab Interpretation Normal (test code = 97922-1) Anderson KandiCoronavirus, CoVID-19, [id number] 01:07:20 Test Item Value Reference Range Interpretation Comments COVID-19 (SARS-COV-2) Not Detected Not Detected INTERP RETATION: No (test code = 20191-2) detect able levels of SARS-CoV-2 Coronavirus (COVID-19) [...] SARS-CoV-2 mole cular diagnostic assa y utilizes Redye Hand Mediated Amplification ( TMA) technology to r apidly detect the SARS -CoV-2 (COVID-19) viru s from respiratory adriana ples. In accordance w ith the FDA's kamran nce document "Polic y for Diagnostic Test s for Coronavirus Disease-[address] [facility] the [facility] Emergency", thi s test was developed, and its performance characteristics were verified by the [facility] molecular diagn ostics laboratory and is authorized for clinical diagno stic use. This labor atory is certified un [place] the Clinical Laboratory Improvement Amendments (CLI A) as qualified to pe rform high complexity clinical labora tory testing. Lab Interpretation Normal (test code = 68282-6) [facility], [id number] 01:07:20 Test Item Value Reference Range Interpretation Comments COVID-19 (SARS-COV-2) Not Detected Not Detected INTERP RETATION: No (test code = 30897-9) detect able levels of SARS-CoV-2 Coronavirus (COVID-19) [...] SARS-CoV-2 mole cular diagnostic assa y utilizes Redye Hand Mediated Amplification ( TMA) technology to r apidly detect the SARS -CoV-2 (COVID-19) viru s from respiratory adriana ples. In accordance w ith the FDA's kamran nce document "Polic y for Diagnostic Test s for Coronavirus Disease-[address] [facility] the Public [facility] Emergency", thi s test was developed, and its performance characteristics were verified by the [facility] molecular diagn ostics laboratory and is authorized for clinical diagno stic use. This labor atory is certified un [place] the Clinical Laboratory Improvement Amendments (CLI A) as qualified to pe rform high complexity clinical labora tory testing. Lab Interpretation Normal (test code = 94063-8) [facility], CoV[facility]-19, [id number] 01:07:20 Test Item Value Reference Range Interpretation Comments COVID-19 (SARS-COV-2) Not Detected Not Detected INTERP RETATION: No (test code = 41003-1) detect able levels of SARS-CoV-2 Coronavirus (COVID-19) [...] SARS-CoV-2 mole cular diagnostic assa y utilizes Redye Hand Mediated Amplification ( TMA) technology to r apidly detect the SARS -CoV-2 (COVID-19) viru s from respiratory adriana ples. In accordance w ith the FDA's kamran nce document "Polic y for Diagnostic Test s for Coronavirus Disease-2019 du [facility]", thi s test was developed, and its performance characteristics were verified by the [facility] molecular diagn ostics laboratory and is authorized for clinical diagno stic use. This labor atory is certified un [place] the Clinical Laboratory Improvement Amendments (CLI A) as qualified to pe rform high complexity clinical labora tory testing. Lab Interpretation Normal (test code = 17973-3) [facility], [facility]-19, [id number] 01:07:20 Test Item Value Reference Range Interpretation Comments COVID-19 (SARS-COV-2) Not Detected Not Detected INTERP RETATION: No (test code = 14139-5) detect able levels of SARS-CoV-2 Coronavirus (COVID-19) [...] SARS-CoV-2 mole cular diagnostic assa y utilizes Redye Hand Mediated Amplification ( TMA) technology to r apidly detect the SARS -CoV-2 (COVID-19) viru s from respiratory adriana ples. In accordance w ith the FDA's kamran nce document "Polic y for Diagnostic Test s for Coronavirus Disease-2019 du ring [facility]", thi s test was developed, and its performance characteristics were verified by the [facility] molecular diagn ostics laboratory and is authorized for clinical diagno stic use. This labor atory is certified un [place] the Clinical Laboratory Improvement Amendments (CLI A) as qualified to pe rform high complexity clinical labora tory testing. Lab Interpretation Normal (test code = 65700-0) [facility] ORF1ab Resp Ql OLENA+[id number] 01:07:20 Test Item Value Reference Range Interpretation Comments Hospitalized? (test No code = 20645-5) ICU? (test code = No 16070-7) Symptomatic as No defined by CDC? (test code = 03248-9) Employed in No Healthcare? (test code = 02469-5) Resident in a No congregate care setting (including nursing homes, residential care for people with intellectual and developmental disabilities, psychiatric treatment facilities, group homes, board and care homes, homeless senior care, foster care or other): (test code = 65812-4) SARS-CoV-2 ORF1ab NOT DETECTED Not Detected INTERPRETA TION: No Resp Ql OLENA+probe detectable levels of (test code = SARS-CoV-2 44803-8) Coronavirus (COVID-19) were present in this patient's [...] SARS-CoV-2 mole cular diagnostic assa y utilizes Redye Hand Mediated Amplification ( TMA) technology to r apidly detect the SARS -CoV-2 (COVID-19) viru s from respiratory adriana ples. In accordance with\\XC2A0\\the FDA's guidance docume nt "Policy for Diagnostic Test s for Coronavirus Disease-2019 du ring the [facility]", ginger s test was developed, and its performance characteristics were verified by the [facility] molecular diagn ostics laboratory and is authorized for clinical diagno stic use. \\XC2A0\\Ginger s laboratory is certified under the Clinical Labora tory Improvement Amendments (CLI A) as qualified to pe rform high complexity clinical labora tory testing. [facility] docked [id number] 08:09:01 Test Item Value Reference Range Interpretation Comments Glucose POC (test code = 32019769) 85 mg/dL 74-106 Lab Interpretation (test code = Normal 66948-8) [facility] [id number] 08:09:01 Test Item Value Reference Range Interpretation Comments Glucose POC (test code = 91484648) 85 mg/dL 74-106 Lab Interpretation (test code = Normal 47452-0) [facility] [id number] 08:09:01 Test Item Value Reference Range Interpretation Comments Glucose POC (test code = 69456094) 85 mg/dL 74-106 Lab Interpretation (test code = Normal 19452-3) [facility] [id number] 08:09:01 Test Item Value Reference Range Interpretation Comments Glucose POC (test code = 17486939) 85 mg/dL 74-106 Lab Interpretation (test code = Normal 75215-2) [facility] [id number] 08:09:01 Test Item Value Reference Range Interpretation Comments Glucose POC (test code = 09013109) 85 mg/dL 74-106 Lab Interpretation (test code = Normal 05188-7) [facility] [id number] 08:09:01 Test Item Value Reference Range Interpretation Comments Glucose POC (test code = 59875641) 85 mg/dL 74-106 Lab Interpretation (test code = Normal 47989-6) [facility] [id number] 08:09:01 Test Item Value Reference Range Interpretation Comments Glucose POC (test code = 09794288) 85 mg/dL 74-106 Lab Interpretation (test code = Normal 59109-7) [facility] [id number] 08:09:01 Test Item Value Reference Range Interpretation Comments Glucose POC (test code = 18152991) 85 mg/dL 74-106 Lab Interpretation (test code = Normal 68713-6) [facility]ed [id number] 08:09:01 Test Item Value Reference Range Interpretation Comments Glucose POC (test code = 22168230) 85 mg/dL 74-106 Lab Interpretation (test code = Normal 01338-6) [facility] [id number] 08:09:01 Test Item Value Reference Range Interpretation Comments Glucose POC (test code = 30910596) 85 mg/dL 74-106 Lab Interpretation (test code = Normal 74406-1) [facility] [id number] 08:09:01 Test Item Value Reference Range Interpretation Comments Glucose POC (test code = 54613996) 85 mg/dL 74-106 Lab Interpretation (test code = Normal 62956-8) [facility]ed [id number] 08:09:01 Test Item Value Reference Range Interpretation Comments Glucose POC (test code = 44713131) 85 mg/dL 74-106 Lab Interpretation (test code = Normal 44009-7) [facility]ed [id number] 08:09:01 Test Item Value Reference Range Interpretation Comments Glucose POC (test code = 97439638) 85 mg/dL 74-106 Lab Interpretation (test code = Normal 12292-1) [facility] [id number] 08:09:01 Test Item Value Reference Range Interpretation Comments Glucose POC (test code = 97259302) 85 mg/dL 74-106 Lab Interpretation (test code = Normal 04956-0) [facility]ed [id number] 08:09:01 Test Item Value Reference Range Interpretation Comments Glucose POC (test code = 45404271) 85 mg/dL 74-106 Lab Interpretation (test code = Normal 17052-3) [facility]ed [id number] 08:09:01 Test Item Value Reference Range Interpretation Comments Glucose POC (test code = 24124615) 85 mg/dL 74-106 Lab Interpretation (test code = Normal 42803-9) [facility] [id number] 08:09:01 Test Item Value Reference Range Interpretation Comments Glucose POC (test code = 73280819) 85 mg/dL 74-106 Lab Interpretation (test code = Normal 19753-5) [facility] HealthDgqtogXDHQ-FwB-7 ORF1ab Resp Ql OLENA+payhb0413-89-61 23:25:40 Test Item Value Reference Range Interpretation Comments Hospitalized? (test No code = 58605-7) ICU? (test code = No 01238-2) Symptomatic as No defined by CDC? (test code = 83931-5) Employed in No Healthcare? (test code = 22120-8) Resident in a No congregate care setting (including nursing homes, residential care for people with intellectual and developmental disabilities, psychiatric treatment facilities, group homes, board and care homes, homeless senior care, foster care or other): (test code = 21565-1) SARS-CoV-2 ORF1ab NOT DETECTED Not Detected INTERPRETA TION: No Resp Ql OLENA+probe detectable levels of (test code = SARS-CoV-2 11556-4) Coronavirus (COVID-19) were present in this patient's [...] SARS-CoV-2 mole cular diagnostic assa y utilizes Redye Hand Mediated Amplification ( TMA) technology to r apidly detect the SARS -CoV-2 (COVID-19) viru s from respiratory adriana ples. In accordance with\\XC2A0\\the FDA's guidance docume nt "Policy for Diagnostic Test s for Coronavirus Disease-2019 du ring the [facility]", thi s test was developed, and its performance characteristics were verified by the [facility] molecular diagn ostics laboratory and is authorized for clinical diagno stic use. \\XC2A0\\Thi s laboratory is certified under the Clinical Labora tory Improvement Amendments (CLI A) as qualified to pe rform high complexity clinical labora tory testing. [facility]12 Lead [id number] 15:46:1012 LEAD EKG FOR [facility] Test Date: 6057-79-89Fpg Name: DORA JOSEPH Department: 5ECIPatient ID: [id number] Room: Gender: M Adjuster Arbitrator: [id number]: 1970 Requested By: DARRION Cho Number: [id number] Reading MD: Rene Patterson MeasurementsIntervals [place] Rate: 61 P: 72PR: 152 QRS: 55QRSD: 106 T: 63QT: 398 QTc: 400 Interpretive StatementsSINUS RHYTHMPOSSIBLE RIGHT VENTRICULAR CONDUCTION DELAY [RSR (QR) IN V1/V2]Electronically Signed On 01-22-2022 8:30:45 CDT by Rene [place] [address] Lead [id number] 15:46:1012 LEAD EKG FOR [facility] Test Date: 4837-35-40Owe Name: DORA JOSEPH Department: 5ECIPatient ID: [id number] Room: Gender: M Adjuster Arbitrator: [id number]: 1970 Requested By: DARRION Cho Number: [id number] Lawson MD: Rene Patterson MeasurementsIntervals [place] Rate: 61 P: 72PR: 152 QRS: 55QRSD: 106 T: 63QT: 398 QTc: 400 Interpretive StatementsSINUS RHYTHMPOSSIBLE RIGHT VENTRICULAR CONDUCTION DELAY [RSR (QR) IN V1/V2]Electronically Signed On 01-22-2022 8:30:45 CDT by Rene Avitia100PlusMaged [place] [address] Lead [id number] 15:46:1012 LEAD EKG FOR [facility] Test Date: 3210-13-04Oqw Name: DORA JOSEPH Department: 5ECIPatient ID: [id number] Room: Gender: M Adjuster Arbitrator: [id number]: 1970 Requested By: DARRION Cho Number: [id number] Reading MD: Rene Patterson MeasurementsIntervals [place] Rate: 61 P: 72PR: 152 QRS: 55QRSD: 106 T: 63QT: 398 QTc: 400 Interpretive StatementsSINUS RHYTHMPOSSIBLE RIGHT VENTRI CULAR CONDUCTION DELAY [RSR (QR) IN V1/V2]Electronically Signed On 01-22-2022 8:30:45 CDT by Rene Avitia100PlusMaged Hsrkdm44 Lead [id number] 15:46:1012 LEAD EKG FOR [facility] Test Date: 3950-81-70Lhn Name: DORA JOSEPH Department: 5ECIPatient ID: [id number] Room: Gender: M Adjuster Arbitrator: [id number]: 1970 Requested By: DARRION Cho Number: [id number] Reading MD: Rene Patterson MeasurementsIntervals [place] Rate: 61 P: 72PR: 152 QRS: 55QRSD: 106 T: 63QT: 398 QTc: 400 Interpretive StatementsSINUS RHYTHMPOSSIBLE RIGHT VENTRICULAR CONDUCTION DELAY [RSR (QR) IN V1/V2]Electronically Signed On 01-22-2022 8:30:45 CDT by Rene Sadi100PlusCompaUniversal [employer]12 Lead [id number] 15:46:1012 LEAD EKG FOR [facility] Test Date: 4980-31-04Ium Name: DORA JOSEPH Department: 5ECIPatient ID: [id number] Room: Gender: M Adjuster Arbitrator: [id number]: 1970 Requested By: DARRION Cho Number: [id number] Reading MD: Rene Patterson MeasurementsIntervals [place] Rate: 61 P: 72PR : 152 QRS: 55QRSD: 106 T: 63QT: 398 QTc: 400 Interpretive StatementsSINUS RHYTHMPOSSIBLE RIGHT VENTRICULAR CONDUCTION DELAY [RSR (QR) IN V1/V2]Electronically Signed On 01-22-2022 8:30:45 CDT by Rene [employer] CompanyFanplayrCompaUniversal World Entertainment LLC12 Lead [id number] 15:46:1012 LEAD EKG FOR [facility] Test Date: 2828-65-45Sjk Name: DORA JOSEPH Department: 5ECIPatient ID: [id number] Room: Gender: M Adjuster Arbitrator: [id number]: 1970 Requested By: DARRION Cho Number: [id number] Reading MD: Rene Patterson MeasurementsIntervals [place] Rate: 61 P: 72PR: 152 QRS: 55QRSD: 106 T: 63QT: 398 QTc: 400 Interpretive StatementsSINUS RHYTHMPOSSIBLE RIGHT VENTRICULAR CONDUCTION DELAY [RSR (QR) IN V1/V2]Electronically Signed On 01-22-2022 8:30:45 CDT by Rene Nihon GigeiDebby100PlusCompaUniversal [employer]12 Lead [id number] 15:46:1012 LEAD EKG FOR [facility] Test Date: 8480-33-90Yav Name: DORA JOSEPH Department: 5ECIPatient ID: [id number] Room: Gender: M Adjuster Arbitrator: [id number]: 1970 Requested By: DARRION Cho Number: [id number] Reading MD: Rene Patterson MeasurementsIntervals [place] Rate: 61 P: 72PR: 152 QRS: 55QRSD: 106 T: 63QT: 398 QTc: 400 Interpretive StatementsSINUS RHYTHMPOSSIBLE RIGHT VENTRI CULAR CONDUCTION DELAY [RSR (QR) IN V1/V2]Electronically Signed On 01-22-2022 8:30:45 CDT by Rene AvitiaMedsurant Monitoring12 Lead [id number] 15:46:1012 LEAD EKG FOR [facility] Test Date: 0503-22-43Tsj Name: DORA JOSEPH Department: 5ECIPatient ID: [id number] Room: Gender: M Adjuster Arbitrator: [id number]: 1970 Requested By: DARRION Cho Number: [id number] Reading MD: Rene Patterson MeasurementsIntervals [place] Rate: 61 P: 72PR:152 QRS: 55QRSD: 106 T: 63QT: 398 QTc: 400 Interpretive StatementsSINUS RHYTHMPOSSIBLE RIGHT VENTRICULAR CONDUCTION DELAY [RSR (QR) IN V1/V2]Electronically Signed On 01-22-2022 8:30:45 CDT by [employer]12 Lead [id number] 15:46:1012 LEAD EKG FOR [facility] Test Date: 4612-06-13Kfd Name: DORA JOSEPH Department: 5ECIPatient ID: [id number] Room: Gender: M Adjuster Arbitrator: [id number]: 1970 Requested By: DARRION Cho Number: [id number] Reading MD: Rene Patterson MeasurementsIntervals [place] Rate: 61 P: 72PR: 152 QRS: 55QRSD: 106 T: 63QT: 398 QTc: 400 Interpretive StatementsSINUS RHYTHMPOSSIBLE RIGHT VENTRICULAR CONDUCTION DELAY [RSR (QR) IN V1/V2]Electronically Signed On 01-22-2022 8:30:45 CDT by Rene [place]aezDebbyDarrell [place] [address] Lead [id number] 15:46:1012 LEAD EKG FOR [facility] Test Date: 6936-57-04Bzg Name: DORA JOSEPH Department: 5EPatient ID: [id number] Room: Gender: M Adjuster Arbitrator: [id number]: 1970 Requested By: DARRION Cho Number: [id number] Reading MD: Rene Patterson MeasurementsIntervals [place] Rate: 61 P: 72PR: 152 QRS: 55QRSD: 106 T: 63QT: 398 QTc: 400 Interpretive StatementsSINUS RHYTHMPOSSIBLE RIGHT VENTRICULAR CONDUCTION DELAY [RSR (QR) IN V1/V2]Electronically Signed On 01-22-2022 8:30:45 CDT by Rene Avitia100PlusCompaSt. Michaels [facility] Center12 Lead [id number] 15:46:1012 LEAD EKG FOR [facility] Test Date: 4906-44-83Yrz Name: DORA JOSEPH Department: 5ECIPatient ID: [id number] Room: Gender: M Adjuster Arbitrator: [id number]: 1970 Requested By: DARRION Cho Number: [id number] Reading MD: Rene Patterson MeasurementsIntervals [place] Rate: 61 P: 72PR: 152 QRS: 55QRSD: 106 T: 63QT: 398 QTc: 400 Interpretive StatementsSINUS RHYTHMPOSSIBLE RIGHT VENTRIC ULAR CONDUCTION DELAY [RSR (QR) IN V1/V2]Electronically Signed On 01-22-2022 8:30:45 CDT by Rene RahmanSMSHarris Chlgpl98 Lead [id number] 15:46:1012 LEAD EKG FOR [facility] Test Date: 0570-84-73Fsa Name: DORA JSOEPH Department: 5ECIPatient ID: [id number] Room: Gender: M Adjuster Arbitrator: [id number]: 1970 Requested By: DARRION Cho Number: [id number] Reading MD: Rene Patterson MeasurementsIntervals [place] Rate: 61 P: 72PR: 152 QRS: 55QRSD: 106 T: 63QT: 398 QTc: 400 Interpretive StatementsSINUS RHYTHMPOSSIBLE RIGHT VENTRICULAR CONDUCTION DELAY [RSR (QR) IN V1/V2]Electronically Signed On 01-22-2022 8:30:45 CDT by Rene Ardenris Hheqxk94 Lead [id number] 15:46:1012 LEAD EKG FOR [facility] Test Date: 9002-30-61Kvt Name: DORA JOSEPH Department: 5ECIPatient ID: [id number] Room: Gender: M Adjuster Arbitrator: [id number]: 1970 Requested By: DARRION Cho Number: [id number] Reading MD: Rene Patterson MeasurementsIntervals [place] Rate: 61 P: 72PR : 152 QRS: 55QRSD: 106 T: 63QT: 398 QTc: 400 Interpretive StatementsSINUS RHYTHMPOSSIBLE RIGHT VENTRICULAR CONDUCTION DELAY [RSR (QR) IN V1/V2]Electronically Signed On 01-22-2022 8:30:45 CDT by Rene SadiVTComparis Fzadzw80 Lead [id number] 15:46:1012 LEAD EKG FOR [facility] Test Date: 2109-07-63Zgw Name: DORA JOSEPH Department: 5ECIPatient ID: [id number] Room: Gender: M Adjuster Arbitrator: [id number]: 1970 Requested By: DARRION Cho Number: [id number] Reading MD: Rene Patterson MeasurementsIntervals [place] Rate: 61 P: 72PR: 152 QRS: 55QRSD: 106 T: 63QT: 398 QTc: 400 Interpretive StatementsSINUS RHYTHMPOSSIBLE RIGHT VENTRICULAR CONDUCTION DELAY [RSR (QR) IN V1/V2]Electronically Signed On 01-22-2022 8:30:45 CDT by Rene Valle Erqlsr30 Lead [id number] 15:46:1012 LEAD EKG FOR [facility] Test Date: 0516-74-30Coq Name: DORA JOSEPH Department: 5ECIPatient ID: [id number] Room: Gender: Adjuster Arbitrator: [id number]: 1970 Requested By: DARRION Cho Number: [id number] Reading MD: Rene Patterson MeasurementsIntervals [place] Rate: 61 P: 72PR: 152 QRS: 55QRSD: 106 T: 63QT: 398 QTc: 400 Interpretive StatementsSINUS RHYTHMPOSSIBLE RIGHT VENTR ICULAR CONDUCTION DELAY [RSR (QR) IN V1/V2]Electronically Signed On 01-22-2022 8:30:45 CDT by Rene Avitia100PlusMaged Ggvbfh22 Lead [id number] 15:46:1012 LEAD EKG FOR [facility] Test Date: 6433-35-94Ysq Name: DORA JOSEPH Department: 5ECIPatient ID: [id number] Room: Gender: Adjuster Arbitrator: [id number]: 1970 Requested By: DARRION Cho Number: [id number] Reading MD: Rene Patterson MeasurementsIntervals [place] Rate: 61 P: 72PR: 152 QRS: 55QRSD: 106 T: 63QT: 398 QTc: 400 Interpretive StatementsSINUS RHYTHMPOSSIBLE RIGHT VENTRICULAR CONDUCTION DELAY [RSR (QR) IN V1/V2]Electronically Signed On 01-22-2022 8:30:45 CDT by Rene AvitiaVTCompaSt. Michaels Medical [facility]12 Lead [id number] 15:46:1012 LEAD EKG FOR [facility] Test Date: 9314-57-96Qwd Name: DORA JOSEPH Department: 5ECIPatient ID: [id number] Room: Gender: M Adjuster Arbitrator: [id number]: 1970 Requested By: DARRION LOERA Marquis Number: [id number] Reading MD: Rene Patterson MeasurementsIntervals [place] Rate: 61 P: 72P R: 152 QRS: 55QRSD: 106 T: 63QT: 398 QTc: 400 Interpretive StatementsSINUS RHYTHMPOSSIBLE RIGHT VENTRICULAR CONDUCTION DELAY [RSR (QR) IN V1/V2]Electronically Signed On 01-22-2022 8:30:45 CDT by [facility] 1[facility]2 Ab+HIV1 p24 Ag SerPl Ql [id number] 07:02:58 Test Item Value Reference Range Interpretation Comments HIV 1+2 Ab+HIV1 p24 Ag SerPl Ql IA NEGATIVE Negative (test code = 86227-5) [id number] 21:23:2512 LEAD EKG FOR [facility] Test Date: 8698-85-75Tfy Name: DORA JOSEPH Department: 5520Patient ID: [id number] Room: 2O58Fkchwg: 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1970 Requested By: KARIN BASSETT AOrder Number: [id number] Reading MD: Chiara Calles MeasurementsIntervals [place] Rate: 72 P: 90PR:157 QRS: 87QRSD: 105 T: 90QT: 360 QTc: 384 Interpretive StatementsSINUS RHYTHMPOSSIBLE RIGHT VENTRICULAR CONDUCTION DELAY [RSR (QR) IN V1/V2]EARLY REPOLARIZATION [ST ELEVATION WITH NORMALLY INFLECTED T- WAVE]Electronically Signed On 01-17-2022 13:02:30 CDT by Chiara DavisLacey V[place] [id number] 21:23:2512 LEAD EKG FOR [facility] Test Date: 1949-05-19Fsd Name: DORA JOSEPH Department: 5520Patient ID: [id number] Room: 2F69Vwtsng: 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1970 Requested By: KARIN BASSETT AOrder Number: [id number] Reading MD: Chiara Calles MeasurementsIntervals [place] Rate: 72 P: 90PR: 157 QRS: 87QRSD: 105 T: 90QT: 360 QTc: 384 Interpretive StatementsSINUS RHYTHMPOSSIBLE RIGHT VENTRICULAR CONDUCTION DELAY [RSR (QR) IN V1/V2]EARLY REPOLARIZATION [ST ELEVATION WITH NORMALLY INFLECTED T- WAVE]Electronically Signed On 01-17-2022 13:02:30 CDT by [facility] [employer] InternationalAnthony [place] [address]WolafbYJR6493-84-80 21:23:2512 LEAD EKG FOR [facility] Test Date: 6347-37-98Kke Name: DORA JOSEPH Department: 5520Patient ID: [id number] Room: 7Z83Ossjgs: Adjuster Arbitrator: : 1970 Requested By: KARIN BASSETT AOrder Number: [id number] Reading MD: Chiara Calles MeasurementsIntervals [place] Rate: 72 P: 90PR: 157 QRS: 87QRSD: 105 T: 90QT: 360 QTc: 384 Interpretive StatementsSINUS RHYTHMPOSSIBLE RIGHT VENTRICULAR CONDUCTION DELAY [RSR (QR) IN V1/V2]EARLY REPOLARIZATION [ST ELEVATION WITH NORMALLY INFLECTED T- WAVE]Electronically Signed On 01-17-2022 13:02:30 CDT by [facility] HospitalIDEAglobalAnthony [place] [address]IatyxpMZA4758-14-48 21:23:2512 LEAD EKG FOR [facility] Test Date: 2465-97-56Car Name: DORA JOSEPH Department: 5520Patient ID: [id number] Room: 9M06Iosasw: Adjuster Arbitrator: : 1970 Requested By: KARIN BASSETT AOrder Number: [id number] Reading MD: Chiara Calles MeasurementsIntervals [place] Rate: 72 P: 90PR: 157 QRS: 87QRSD: 105 T: 90QT: 360 QTc: 384 Interpretive StatementsSINUS RHYTHMPOSSIBLE RIGHT VENTRICULAR CONDUCTION DELAY [RSR (QR) IN V1/V2]EARLY REPOLARIZATION [ST ELEVATION WITH NORMALLY INFLECTED T- WAVE]Electronically Signed On 01-17-2022 13:02:30 CDT by [facility] [employer] [address]LtysdkOAQ8401-58-88 21:23:2512 LEAD EKG FOR [facility] Test Date: 7223-35-22Skt Name: DORA JOSEPH Department: 5520Patient ID: [id number] Room: 8F34Cbxtzb: 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1970 Requested By: JESSICA AOrder Number: [id number] Reading MD: Chiara Calles MeasurementsIntervals [place] Rate: 72 P: 90PR:157 QRS: 87QRSD: 105 T: 90QT: 360 QTc: 384 Interpretive StatementsSINUS RHYTHMPOSSIBLE RIGHT VENTRICULAR CONDUCTION DELAY [RSR (QR) IN V1/V2]EARLY REPOLARIZATION [ST ELEVATION WITH NORMALLY INFLECTED T- WAVE]Electronically Signed On 01-17-2022 13:02:30 CDT by [facility] nParioLacey [place]ille [id number] 21:23:2512 LEAD EKG FOR [facility] Test Date: 4899-77-34Hef Name: DORA JOSEPH Department: 5520Patient ID: [id number] Room: 2O62Ddoeec: Adjuster Arbitrator: : 1970 Requested By: KARIN BASSETT AOrder Number: [id number] Reading MD: Chiara Calles MeasurementsIntervals [place] Rate: 72 P: 90PR: 157 QRS: 87QRSD: 105 T: 90QT: 360 QTc: 384 Interpretive StatementsSINUS RHYTHMPOSSIBLE RIGHT VENTRICULAR CONDUCTION DELAY [RSR (QR) IN V1/V2]EARLY REPOLARIZATION [ST ELEVATION WITH NORMALLY INFLECTED T- WAVE]Electronically Signed On 01-17-2022 13:02:30 CDT by [facility] Hospitalrobert SR Labsdignity health [facility] - gilbertNautitEvergreenHealthQyednfAYJ7694-26-81 21:23:2512 LEAD EKG FOR [facility] Test Date: 5677-54-90Evc Name: DORA JOSEPH Department: 5520Patient ID: [id number] Room: 7B01Klkpnu: 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1970 Requested By: KARIN BASSETT AOrder Number: [id number] Reading MD: Chiara Calles MeasurementsIntervals [place] Rate: 72 P: 90PR: 157 QRS: 87QRSD: 105 T: 90QT: 360 QTc: 384 Interpretive StatementsSINUS RHYTHMPOSSIBLE RIGHT VENTRICULAR CONDUCTION DELAY [RSR (QR) IN V1/V2]EARLY REPOLARIZATION [ST ELEVATION WITH NORMALLY INFLECTED T- WAVE]Electronically Signed On 01-17-2022 13:02:30 CDT by [place] 86598022-05-26 21:23:2512 LEAD EKG FOR [facility] Test Date: 8750-30-38Lhc Name: DORA JOSEPH Department: 5520Patient ID: [id number] Room: 9S61Nuzmbh: 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1970 Requested By: KARIN BASSETT AOrder Number: [id number] Reading MD: Chiara Calles MeasurementsIntervals [place] Rate: 72 P: 90PR:157 QRS: 87QRSD: 105 T: 90QT: 360 QTc: 384 Interpretive StatementsSINUS RHYTHMPOSSIBLE RIGHT VENTRICULAR CONDUCTION DELAY [RSR (QR) IN V1/V2]EARLY REPOLARIZATION [ST ELEVATION WITH NORMALLY INFLECTED T- WAVE]Electronically Signed On 01-17-2022 13:02:30 CDT by [place] 86598022-05-26 21:23:2512 LEAD EKG FOR [facility] Test Date: 3515-06-36Wdb Name: DORA JOSEPH Department: 5520Patient ID: [id number] Room: 5V84Klpmcu: 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1970 Requested By: KARIN BASSETT AOrder Number: [id number] Reading MD: Chiara Calles MeasurementsIntervals [place] Rate: 72 P: 90PR:157 QRS: 87QRSD: 105 T: 90QT: 360 QTc: 384 Interpretive StatementsSINUS RHYTHMPOSSIBLE RIGHT VENTRICULAR CONDUCTION DELAY [RSR (QR) IN V1/V2]EARLY REPOLARIZATION [ST ELEVATION WITH NORMALLY INFLECTED T- WAVE]Electronically Signed On 01-17-2022 13:02:30 CDT by [place] [id number] 21:23:2512 LEAD EKG FOR [facility] Test Date: 9807-58-96Mvu Name: DORA JOSEPH Department: 5520Patient ID: [id number] Room: 8W91Vluufx: 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1970 Requested By: KARIN BASSETT AOrder Number: [id number] Reading : Chiara Calles MeasurementsIntervals [place] Rate: 72 P: 90PR:157 QRS: 87QRSD: 105 T: 90QT: 360 QTc: 384 Interpretive StatementsSINUS RHYTHMPOSSIBLE RIGHT VENTRICULAR CONDUCTION DELAY [RSR (QR) IN V1/V2]EARLY REPOLARIZATION [ST ELEVATION WITH NORMALLY INFLECTED T- WAVE]Electronically Signed On 01-17-2022 13:02:30 CDT by [facility] nParioLacey [place] [id number] 21:23:2512 LEAD EKG FOR [facility] Test Date: 9681-03-25Gvk Name: DORA JOSEPH Department: 5520Patient ID: [id number] Room: 1C51Jifmqa: 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1970 Requested By: JESSICA AOrder Number: [id number] Reading MD: Chiara Calels MeasurementsIntervals [place] Rate: 72 P: 90PR: 157 QRS: 87QRSD: 105 T: 90QT: 360 QTc: 384 Interpretive StatementsSINUS RHYTHMPOSSIBLE RIGHT VENTRICULAR CONDUCTION DELAY [RSR (QR) IN V1/V2]EARLY REPOLARIZATION [ST ELEVATION WITH NORMALLY INFLECTEDT- WAVE]Electronically Signed On 01-17-2022 13:02:30 CDT by [facility] [employer] InternationalEvergreenHealthHogfkhAXH4946-77-50 21:23:2512 LEAD EKG FOR [facility] Test Date: 2332-00-97Dwn Name: DORA JOSEPH Department: 5520Patient ID: [id number] Room: 7L00Htyncw: 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1970 Requested By: KARIN BASSETT AOrder Number: [id number] Reading MD: Chiara Calles MeasurementsIntervals [place] Rate: 72 P: 90PR:157 QRS: 87QRSD: 105 T: 90QT: 360 QTc: 384 Interpretive StatementsSINUS RHYTHMPOSSIBLE RIGHT VENTRICULAR CONDUCTION DELAY [RSR (QR) IN V1/V2]EARLY REPOLARIZATION [ST ELEVATION WITH NORMALLY INFLECTED T- WAVE]Electronically Signed On 01-17-2022 13:02:30 CDT by [facility] nParioLacey [place] [id number] 21:23:2512 LEAD EKG FOR [facility] Test Date: 8204-84-89Aso Name: DORA JOSEPH Department: 5520Patient ID: [id number] Room: 0N44Lfqfgi: 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1970 Requested By: KARIN BASSETT AOrder Number: [id number] Reading MD: Chiara Calles MeasurementsIntervals [place] Rate: 72 P: 90PR: 157 QRS: 87QRSD: 105 T: 90QT: 360 QTc: 384 Interpretive StatementsSINUS RHYTHMPOSSIBLE RIGHT VENTRICULAR CONDUCTION DELAY [RSR (QR) IN V1/V2]EARLY REPOLARIZATION [ST ELEVATION WITH NORMALLY INFLECTED T- WAVE]Electronically Signed On 01-17-2022 13:02:30 CDT by Audiamrobert [employer] InternationalAnthony [place] [address]XrviqdUNW6641-93-69 21:23:2512 LEAD EKG FOR [facility] Test Date: 4337-08-93Cfx Name: DORA JOSEPH Department: 5520Patient ID: [id number] Room: 7I28Rgrlfc: 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1970 Requested By: KARIN BASSETT AOrder Number: [id number] Reading MD: Chiara Calles MeasurementsIntervals [place] Rate: 72 P: 90PR:157 QRS: 87QRSD: 105 T: 90QT: 360 QTc: 384 Interpretive StatementsSINUS RHYTHMPOSSIBLE RIGHT VENTRICULAR CONDUCTION DELAY [RSR (QR) IN V1/V2]EARLY REPOLARIZATION [ST ELEVATION WITH NORMALLY INFLECTED T- WAVE]Electronically Signed On 01-17-2022 13:02:30 CDT by Audiamrobert GRAVIDIEKG2022-05-26 21:23:2512 LEAD EKG FOR [facility] Test Date: 4872-40-07Zxc Name: DORA JOSEPH Department: 5520Patient ID: [id number] Room: 3Z16Sjxaaa: 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1970 Requested By: JESSICA AOrder Number: [id number] Reading MD: Chiara Calles MeasurementsIntervals [place] Rate: 72 P: 90PR:157 QRS: 87QRSD: 105 T: 90QT: 360 QTc: 384 Interpretive StatementsSINUS RHYTHMPOSSIBLE RIGHT VENTRICULAR CONDUCTION DELAY [RSR (QR) IN V1/V2]EARLY REPOLARIZATION [ST ELEVATION WITH NORMALLY INFLECTED T- WAVE]Electronically Signed On 01-17-2022 13:02:30 CDT by Audiamrobert GRAVIDIEKG2022-05-26 21:23:2512 LEAD EKG FOR [facility] Test Date: 8920-14-84Rcv Name: DORA JOSEPH Department: 5520Patient ID: [id number] Room: 7N59Ecaiqp: 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 (test No code = 47802-0) ICU? (test code = No 16692-8) Symptomatic as No defined by CDC? (test code = 90952-5) Employed in No Healthcare? (test code = 01118-6) Resident in a No congregate care setting (including nursing homes, residential care for people with intellectual and developmental disabilities, psychiatric treatment facilities, group homes, board and care homes, homeless senior care, foster care or other): (test code = 88291-9) SARS-CoV-2 ORF1ab NOT DETECTED Not Detected INTERPRETA TION: No Resp Ql OLENA+probe detectable levels of (test code = SARS-CoV-2 44907-7) Coronavirus (COVID-19) were present in this patient's [...] SARS-CoV-2 mole cular diagnostic assa y utilizes [employer] Hand Mediated Amplification ( TMA) technology to r apidly detect the SARS -CoV-2 (COVID-19) viru s from respiratory adriana ples. In accordance with\\XC2A0\\the FDA's guidance docume nt "Policy for Diagnostic Test s for Coronavirus Disease-2019 du ring the Public Heal Emergency", ginger s test was developed, and its performance characteristics were verified by the [facility] molecular diagn ostics laboratory and is authorized for clinical diagno stic use. \\XC2A0\\Thi s laboratory is certified under the Clinical Labora tory Improvement Amendments (CLI A) as qualified to pe rform high complexity clinical labora tory testing. [facility] CREATININE POC docked [id number] 13:57:55 Test Item Value Reference Range Interpretation Comments Creatinine POC (test 2.4 mg/dL 0.6-1.3 H Physici an Notified code = 87913684) eGFR If non- Am 30 See_Comment L [Aut omated message] (test code = 01846047) The s ystem which generated this result transmit dain reference range : >=90 mL/min/1.7 3 m2. The reference r meredith was not used to interpret this result as normal/abnormal . eGFR If Am (test 35 See_Comment L [A utomated message] code = 92253729) The system which generated this result transmit dain reference range : >=90 mL/min/1.7 3 m2. The reference r meredith was not used to interpret this result as normal/abnormal . Lab Interpretation (test Abnormal code = 50114-0) [facility] CREATININE POC docked [id number] 13:57:55 Test Item Value Reference Range Interpretation Comments Creatinine POC (test 2.4 mg/dL 0.6-1.3 H Physici an Notified code = 18039401) eGFR If non- Am 30 See_Comment L [Aut omated message] (test code = 50581025) The s ystem which generated this result transmit dain reference range : >=90 mL/min/1.7 3 m2. The reference r meredith was not used to interpret this result as normal/abnormal . eGFR If Am (test 35 See_Comment L [A utomated message] code = 71457125) The system which generated this result transmit dain reference range : >=90 mL/min/1.7 3 m2. The reference r meredith was not used to interpret this result as normal/abnormal . Lab Interpretation (test Abnormal code = 05240-4) [facility] CREATININE POC docked [id number] 13:57:55 Test Item Value Reference Range Interpretation Comments Creatinine POC (test 2.4 mg/dL 0.6-1.3 H Physici an Notified code = 60119702) eGFR If non- Am 30 See_Comment L [Aut omated message] (test code = 76700696) The s ystem which generated this result transmit dain reference range : >=90 mL/min/1.7 3 m2. The reference r meredith was not used to interpret this result as normal/abnormal . eGFR If Am (test 35 See_Comment L [A utomated message] code = 90550082) The system which generated this result transmit dain reference range : >=90 mL/min/1.7 3 m2. The reference r meredith was not used to interpret this result as normal/abnormal . Lab Interpretation (test Abnormal code = 64490-9) [facility] [id number] 13:57:55 Test Item Value Reference Range Interpretation Comments Creatinine POC (test 2.4 mg/dL 0.6-1.3 H Physici an Notified code = 96897875) eGFR If non- Am 30 See_Comment L [Aut omated message] (test code = 12938486) The s ystem which generated this result transmit dain reference range : >=90 mL/min/1.7 3 m2. The reference r meredith was not used to interpret this result as normal/abnormal . eGFR If Am (test 35 See_Comment L [A utomated message] code = 98871986) The system which generated this result transmit dain reference range : >=90 mL/min/1.7 3 m2. The reference r meredith was not used to interpret this result as normal/abnormal . Lab Interpretation (test Abnormal code = 50906-3) [facility] CREATININE POC docked [id number] 13:57:55 Test Item Value Reference Range Interpretation Comments Creatinine POC (test 2.4 mg/dL 0.6-1.3 H Physici an Notified code = 65905146) eGFR If non- Am 30 See_Comment L [Aut omated message] (test code = 88467973) The s ystem which generated this result transmit dain reference range : >=90 mL/min/1.7 3 m2. The reference r meredith was not used to interpret this result as normal/abnormal . eGFR If Am (test 35 See_Comment L [A utomated message] code = 54660272) The system which generated this result transmit dain reference range : >=90 mL/min/1.7 3 m2. The reference r meredith was not used to interpret this result as normal/abnormal . Lab Interpretation (test Abnormal code = 72323-4) [facility] [id number] 13:57:55 Test Item Value Reference Range Interpretation Comments Creatinine POC (test 2.4 mg/dL 0.6-1.3 H Physici an Notified code = 55599483) eGFR If non- Am 30 See_Comment L [Aut omated message] (test code = 44211364) The s ystem which generated this result transmit dain reference range : >=90 mL/min/1.7 3 m2. The reference r meredith was not used to interpret this result as normal/abnormal . eGFR If Am (test 35 See_Comment L [A utomated message] code = 70160342) The system which generated this result transmit dain reference range : >=90 mL/min/1.7 3 m2. The reference r meredith was not used to interpret this result as normal/abnormal . Lab Interpretation (test Abnormal code = 41723-8) [facility] [id number] 13:57:55 Test Item Value Reference Range Interpretation Comments Creatinine POC (test 2.4 mg/dL 0.6-1.3 H Physici an Notified code = 33035619) eGFR If non- Am 30 See_Comment L [Aut omated message] (test code = 73642893) The s ystem which generated this result transmit dain reference range : >=90 mL/min/1.7 3 m2. The reference r meredith was not used to interpret this result as normal/abnormal . eGFR If Am (test 35 See_Comment L [A utomated message] code = 78492066) The system which generated this result transmit dain reference range : >=90 mL/min/1.7 3 m2. The reference r meredith was not used to interpret this result as normal/abnormal . Lab Interpretation (test Abnormal code = 62098-4) [facility] POC docked uhgpyu9722-63-00 13:57:55 Test Item Value Reference Range Interpretation Comments Creatinine POC (test 2.4 mg/dL 0.6-1.3 H Physici an Notified code = 12915193) eGFR If non- Am 30 See_Comment L [Aut omated message] (test code = 25877013) The s ystem which generated this result transmit dain reference range : >=90 mL/min/1.7 3 m2. The reference r meredith was not used to interpret this result as normal/abnormal . eGFR If Am (test 35 See_Comment L [A utomated message] code = 71080058) The system which generated this result transmit dain reference range : >=90 mL/min/1.7 3 m2. The reference r meredith was not used to interpret this result as normal/abnormal . Lab Interpretation (test Abnormal code = 28076-5) [facility] [id number] 13:57:55 Test Item Value Reference Range Interpretation Comments Creatinine POC (test 2.4 mg/dL 0.6-1.3 H Physici an Notified code = 81525661) eGFR If non- Am 30 See_Comment L [Aut omated message] (test code = 88990007) The s ystem which generated this result transmit dain reference range : >=90 mL/min/1.7 3 m2. The reference r meredith was not used to interpret this result as normal/abnormal . eGFR If Am (test 35 See_Comment L [A utomated message] code = 64099296) The system which generated this result transmit dain reference range : >=90 mL/min/1.7 3 m2. The reference r meredith was not used to interpret this result as normal/abnormal . Lab Interpretation (test Abnormal code = 81828-4) [facility] CREATININE POC docked [id number] 13:57:55 Test Item Value Reference Range Interpretation Comments Creatinine POC (test 2.4 mg/dL 0.6-1.3 H Physici an Notified code = 29875378) eGFR If non- Am 30 See_Comment L [Aut omated message] (test code = 25602016) The s ystem which generated this result transmit dain reference range : >=90 mL/min/1.7 3 m2. The reference r meredith was not used to interpret this result as normal/abnormal . eGFR If Am (test 35 See_Comment L [A utomated message] code = 80218988) The system which generated this result transmit dain reference range : >=90 mL/min/1.7 3 m2. The reference r meredith was not used to interpret this result as normal/abnormal . Lab Interpretation (test Abnormal code = 21938-7) [facility] [id number] 13:57:55 Test Item Value Reference Range Interpretation Comments Creatinine POC (test 2.4 mg/dL 0.6-1.3 H Physici an Notified code = 49799064) eGFR If non- Am 30 See_Comment L [Aut omated message] (test code = 59249433) The s ystem which generated this result transmit dain reference range : >=90 mL/min/1.7 3 m2. The reference r meredith was not used to interpret this result as normal/abnormal . eGFR If Am (test 35 See_Comment L [A utomated message] code = 27146967) The system which generated this result transmit dain reference range : >=90 mL/min/1.7 3 m2. The reference r meredith was not used to interpret this result as normal/abnormal . Lab Interpretation (test Abnormal code = 66717-7) [facility] CREATININE POC docked [id number] 13:57:55 Test Item Value Reference Range Interpretation Comments Creatinine POC (test 2.4 mg/dL 0.6-1.3 H Physici an Notified code = 77267101) eGFR If non- Am 30 See_Comment L [Aut omated message] (test code = 86765684) The s ystem which generated this result transmit dain reference range : >=90 mL/min/1.7 3 m2. The reference r meredith was not used to interpret this result as normal/abnormal . eGFR If Am (test 35 See_Comment L [A utomated message] code = 48029132) The system which generated this result transmit dain reference range : >=90 mL/min/1.7 3 m2. The reference r meredith was not used to interpret this result as normal/abnormal . Lab Interpretation (test Abnormal code = 08069-7) [facility] [id number] 13:57:55 Test Item Value Reference Range Interpretation Comments Creatinine POC (test 2.4 mg/dL 0.6-1.3 H Physici an Notified code = 93781463) eGFR If non- Am 30 See_Comment L [Aut omated message] (test code = 87581178) The s ystem which generated this result transmit dain reference range : >=90 mL/min/1.7 3 m2. The reference r meredith was not used to interpret this result as normal/abnormal . eGFR If Am (test 35 See_Comment L [A utomated message] code = 09195413) The system which generated this result transmit dain reference range : >=90 mL/min/1.7 3 m2. The reference r meredith was not used to interpret this result as normal/abnormal . Lab Interpretation (test Abnormal code = 64149-4) [facility] CREATININE POC docked [id number] 13:57:55 Test Item Value Reference Range Interpretation Comments Creatinine POC (test 2.4 mg/dL 0.6-1.3 H Physici an Notified code = 83075747) eGFR If non- Am 30 See_Comment L [Aut omated message] (test code = 22503903) The s ystem which generated this result transmit dain reference range : >=90 mL/min/1.7 3 m2. The reference r meredith was not used to interpret this result as normal/abnormal . eGFR If Am (test 35 See_Comment L [A utomated message] code = 68854645) The system which generated this result transmit dain reference range : >=90 mL/min/1.7 3 m2. The reference r meredith was not used to interpret this result as normal/abnormal . Lab Interpretation (test Abnormal code = 81652-5) [facility] CREATININE POC docked [id number] 13:57:55 Test Item Value Reference Range Interpretation Comments Creatinine POC (test 2.4 mg/dL 0.6-1.3 H Physici an Notified code = 21814747) eGFR If non- Am 30 See_Comment L [Aut omated message] (test code = 84007187) The s ystem which generated this result transmit dain reference range : >=90 mL/min/1.7 3 m2. The reference r meredith was not used to interpret this result as normal/abnormal . eGFR If Am (test 35 See_Comment L [A utomated message] code = 19873430) The system which generated this result transmit dain reference range : >=90 mL/min/1.7 3 m2. The reference r meredith was not used to interpret this result as normal/abnormal . Lab Interpretation (test Abnormal code = 50658-1) [facility] CREATININE POC docked [id number] 13:57:55 Test Item Value Reference Range Interpretation Comments Creatinine POC (test 2.4 mg/dL 0.6-1.3 H Physici an Notified code = 92788797) eGFR (test code = 30 See_Comment L [Automate d message] 49843820) The system [employer] generated this result transmit dain reference range : >=90 mL/min/1.7 3 m2. The reference r merdeith was not used to interpret this result as normal/abnormal . eGFR If Am (test 35 See_Comment L [A utomated message] code = 37161014) The system which generated this result transmit dain reference range : >=90 mL/min/1.7 3 m2. The reference r meredith was not used to interpret this result as normal/abnormal . Lab Interpretation (test Abnormal code = 46167-5) [facility] CREATININE POC docked [id number] 13:57:55 Test Item Value Reference Range Interpretation Comments Creatinine POC (test 2.4 mg/dL 0.6-1.3 H Physici an Notified code = 69237140) eGFR (test code = 30 See_Comment L [Automate d message] 64154816) The system [employer] generated this result transmit dain reference range : >=90 mL/min/1.7 3 m2. The reference r meredith was not used to interpret this result as normal/abnormal . eGFR If Am (test 35 See_Comment L [A utomated message] code = 11857795) The system which generated this result transmit dain reference range : >=90 mL/min/1.7 3 m2. The reference r meredith was not used to interpret this result as normal/abnormal . Lab Interpretation (test Abnormal code = 46831-1) [facility] BMP POC docked [id number] 13:48:46 Test Item Value Reference Range Interpretation Comments Sodium POC (test code = 126 mmol/L 136-145 L 29731233) Potassium POC (test code 4.4 mmol/L 3.5-5.1 = 79797880) Chloride POC (test code 100 mmol/L 98-107 = 12018607) TCO2 POC (test code = 17 mmol/L 21-32 L Physic aylin Notified 55139802) Urea Nitrogen POC (test 36 mg/dL 7-18 H code = 07568880) Glucose POC (test code = 114 mg/dL 74-106 H 87104588) Hemoglobin POC (test 11.9 g/dL 12-16 L code = 43686695) Hematocrit POC (test 35.0 % 37.0-47.0 L code = 68821373) Lab Interpretation (test Abnormal code = 77355-7) [facility] POC docked [id number] 13:48:46 Test Item Value Reference Range Interpretation Comments Sodium POC (test code = 126 mmol/L 136-145 L 89519573) Potassium POC (test code 4.4 mmol/L 3.5-5.1 = 09082681) Chloride POC (test code 100 mmol/L 98-107 = 62152464) TCO2 POC (test code = 17 mmol/L 21-32 L Physic aylin Notified 89326212) Urea Nitrogen POC (test 36 mg/dL 7-18 H code = 37994502) Glucose POC (test code = 114 mg/dL 74-106 H 04099739) Hemoglobin POC (test 11.9 g/dL 12-16 L code = 75374183) Hematocrit POC (test 35.0 % 37.0-47.0 L code = 51422755) Lab Interpretation (test Abnormal code = 00385-7) [facility] POC docked [id number] 13:48:46 Test Item Value Reference Range Interpretation Comments Sodium POC (test code = 126 mmol/L 136-145 L 50068185) Potassium POC (test code 4.4 mmol/L 3.5-5.1 = 54833887) Chloride POC (test code 100 mmol/L 98-107 = 45506727) TCO2 POC (test code = 17 mmol/L 21-32 L Physic aylin Notified 03730236) Urea Nitrogen POC (test 36 mg/dL 7-18 H code = 42023314) Glucose POC (test code = 114 mg/dL 74-106 H 60247903) Hemoglobin POC (test 11.9 g/dL 12-16 L code = 55323693) Hematocrit POC (test 35.0 % 37.0-47.0 L code = 34822455) Lab Interpretation (test Abnormal code = 36462-1) [facility] POC docked [id number] 13:48:46 Test Item Value Reference Range Interpretation Comments Sodium POC (test code = 126 mmol/L 136-145 L 43235895) Potassium POC (test code 4.4 mmol/L 3.5-5.1 = 87133640) Chloride POC (test code 100 mmol/L 98-107 = 68647348) TCO2 POC (test code = 17 mmol/L 21-32 L Physic aylin Notified 16775489) Urea Nitrogen POC (test 36 mg/dL 7-18 H code = 83228110) Glucose POC (test code = 114 mg/dL 74-106 H 23760590) Hemoglobin POC (test 11.9 g/dL 12-16 L code = 60402961) Hematocrit POC (test 35.0 % 37.0-47.0 L code = 54203005) Lab Interpretation (test Abnormal code = 22897-1) [facility] POC docked [id number] 13:48:46 Test Item Value Reference Range Interpretation Comments Sodium POC (test code = 126 mmol/L 136-145 L 60659403) Potassium POC (test code 4.4 mmol/L 3.5-5.1 = 85020301) Chloride POC (test code 100 mmol/L 98-107 = 27184980) TCO2 POC (test code = 17 mmol/L 21-32 L Physic aylin Notified 70074883) Urea Nitrogen POC (test 36 mg/dL 7-18 H code = 31279500) Glucose POC (test code = 114 mg/dL 74-106 H 49064828) Hemoglobin POC (test 11.9 g/dL 12-16 L code = 61465336) Hematocrit POC (test 35.0 % 37.0-47.0 L code = 63400691) Lab Interpretation (test Abnormal code = 30247-9) [facility] POC docked [id number] 13:48:46 Test Item Value Reference Range Interpretation Comments Sodium POC (test code = 126 mmol/L 136-145 L 57239378) Potassium POC (test code 4.4 mmol/L 3.5-5.1 = 81925623) Chloride POC (test code 100 mmol/L 98-107 = 45696038) TCO2 POC (test code = 17 mmol/L 21-32 L Physic aylin Notified 37618337) Urea Nitrogen POC (test 36 mg/dL 7-18 H code = 00153740) Glucose POC (test code = 114 mg/dL 74-106 H 76270178) Hemoglobin POC (test 11.9 g/dL 12-16 L code = 14801666) Hematocrit POC (test 35.0 % 37.0-47.0 L code = 17948841) Lab Interpretation (test Abnormal code = 61474-9) [facility] POC docked [id number] 13:48:46 Test Item Value Reference Range Interpretation Comments Sodium POC (test code = 126 mmol/L 136-145 L 37053265) Potassium POC (test code 4.4 mmol/L 3.5-5.1 = 02799564) Chloride POC (test code 100 mmol/L 98-107 = 59453930) TCO2 POC (test code = 17 mmol/L 21-32 L Physic aylin Notified 28020707) Urea Nitrogen POC (test 36 mg/dL 7-18 H code = 26805325) Glucose POC (test code = 114 mg/dL 74-106 H 03041983) Hemoglobin POC (test 11.9 g/dL 12-16 L code = 65507235) Hematocrit POC (test 35.0 % 37.0-47.0 L code = 15550084) Lab Interpretation (test Abnormal code = 42839-9) [facility] POC docked [id number] 13:48:46 Test Item Value Reference Range Interpretation Comments Sodium POC (test code = 126 mmol/L 136-145 L 29489935) Potassium POC (test code 4.4 mmol/L 3.5-5.1 = 17859711) Chloride POC (test code 100 mmol/L 98-107 = 92309214) TCO2 POC (test code = 17 mmol/L 21-32 L Physic aylin Notified 54120317) Urea Nitrogen POC (test 36 mg/dL 7-18 H code = 76503544) Glucose POC (test code = 114 mg/dL 74-106 H 08213823) Hemoglobin POC (test 11.9 g/dL 12-16 L code = 62166291) Hematocrit POC (test 35.0 % 37.0-47.0 L code = 11556729) Lab Interpretation (test Abnormal code = 83597-4) [facility] POC docked [id number] 13:48:46 Test Item Value Reference Range Interpretation Comments Sodium POC (test code = 126 mmol/L 136-145 L 30335821) Potassium POC (test code 4.4 mmol/L 3.5-5.1 = 86207811) Chloride POC (test code 100 mmol/L 98-107 = 27224630) TCO2 POC (test code = 17 mmol/L 21-32 L Physic aylin Notified 39614160) Urea Nitrogen POC (test 36 mg/dL 7-18 H code = 07345850) Glucose POC (test code = 114 mg/dL 74-106 H 62552504) Hemoglobin POC (test 11.9 g/dL 12-16 L code = 85989706) Hematocrit POC (test 35.0 % 37.0-47.0 L code = 80138444) Lab Interpretation (test Abnormal code = 00992-2) [facility] POC docked [id number] 13:48:46 Test Item Value Reference Range Interpretation Comments Sodium POC (test code = 126 mmol/L 136-145 L 80447755) Potassium POC (test code 4.4 mmol/L 3.5-5.1 = 41541646) Chloride POC (test code 100 mmol/L 98-107 = 93268303) TCO2 POC (test code = 17 mmol/L 21-32 L Physic aylin Notified 00032482) Urea Nitrogen POC (test 36 mg/dL 7-18 H code = 44182807) Glucose POC (test code = 114 mg/dL 74-106 H 94621442) Hemoglobin POC (test 11.9 g/dL 12-16 L code = 95267334) Hematocrit POC (test 35.0 % 37.0-47.0 L code = 75687340) Lab Interpretation (test Abnormal code = 75235-6) [facility] POC docked [id number] 13:48:46 Test Item Value Reference Range Interpretation Comments Sodium POC (test code = 126 mmol/L 136-145 L 89271398) Potassium POC (test code 4.4 mmol/L 3.5-5.1 = 39290260) Chloride POC (test code 100 mmol/L 98-107 = 49413615) TCO2 POC (test code = 17 mmol/L 21-32 L Physic aylin Notified 97936917) Urea Nitrogen POC (test 36 mg/dL 7-18 H code = 43180430) Glucose POC (test code = 114 mg/dL 74-106 H 38159583) Hemoglobin POC (test 11.9 g/dL 12-16 L code = 68336423) Hematocrit POC (test 35.0 % 37.0-47.0 L code = 67709682) Lab Interpretation (test Abnormal code = 15682-4) [facility] POC docked [id number] 13:48:46 Test Item Value Reference Range Interpretation Comments Sodium POC (test code = 126 mmol/L 136-145 L 24284993) Potassium POC (test code 4.4 mmol/L 3.5-5.1 = 54813155) Chloride POC (test code 100 mmol/L 98-107 = 13922998) TCO2 POC (test code = 17 mmol/L 21-32 L Physic aylin Notified 43043561) Urea Nitrogen POC (test 36 mg/dL 7-18 H code = 58294742) Glucose POC (test code = 114 mg/dL 74-106 H 17831167) Hemoglobin POC (test 11.9 g/dL 12-16 L code = 35237555) Hematocrit POC (test 35.0 % 37.0-47.0 L code = 28793776) Lab Interpretation (test Abnormal code = 95105-6) [facility] POC docked [id number] 13:48:46 Test Item Value Reference Range Interpretation Comments Sodium POC (test code = 126 mmol/L 136-145 L 04762718) Potassium POC (test code 4.4 mmol/L 3.5-5.1 = 77132896) Chloride POC (test code 100 mmol/L 98-107 = 38965890) TCO2 POC (test code = 17 mmol/L 21-32 L Physic aylin Notified 74367272) Urea Nitrogen POC (test 36 mg/dL 7-18 H code = 17389743) Glucose POC (test code = 114 mg/dL 74-106 H 93523998) Hemoglobin POC (test 11.9 g/dL 12-16 L code = 33650741) Hematocrit POC (test 35.0 % 37.0-47.0 L code = 83087100) Lab Interpretation (test Abnormal code = 78683-9) [facility] POC docked [id number] 13:48:46 Test Item Value Reference Range Interpretation Comments Sodium POC (test code = 126 mmol/L 136-145 L 53479587) Potassium POC (test code 4.4 mmol/L 3.5-5.1 = 11515945) Chloride POC (test code 100 mmol/L 98-107 = 02500418) TCO2 POC (test code = 17 mmol/L 21-32 L Physic aylin Notified 42038750) Urea Nitrogen POC (test 36 mg/dL 7-18 H code = 73358746) Glucose POC (test code = 114 mg/dL 74-106 H 20308474) Hemoglobin POC (test 11.9 g/dL 12-16 L code = 11694733) Hematocrit POC (test 35.0 % 37.0-47.0 L code = 74324179) Lab Interpretation (test Abnormal code = 84477-2) [facility] POC docked [id number] 13:48:46 Test Item Value Reference Range Interpretation Comments Sodium POC (test code = 126 mmol/L 136-145 L 76350865) Potassium POC (test code 4.4 mmol/L 3.5-5.1 = 60311376) Chloride POC (test code 100 mmol/L 98-107 = 54139546) TCO2 POC (test code = 17 mmol/L 21-32 L Physic aylin Notified 10053462) Urea Nitrogen POC (test 36 mg/dL 7-18 H code = 01483193) Glucose POC (test code = 114 mg/dL 74-106 H 60926532) Hemoglobin POC (test 11.9 g/dL 12-16 L code = 27052833) Hematocrit POC (test 35.0 % 37.0-47.0 L code = 24860733) Lab Interpretation (test Abnormal code = 38804-6) [facility] POC docked [id number] 13:48:46 Test Item Value Reference Range Interpretation Comments Sodium POC (test code = 126 mmol/L 136-145 L 33480981) Potassium POC (test code 4.4 mmol/L 3.5-5.1 = 27618179) Chloride POC (test code 100 mmol/L 98-107 = 34230995) TCO2 POC (test code = 17 mmol/L 21-32 L Physic aylin Notified 22520787) Urea Nitrogen POC (test 36 mg/dL 7-18 H code = 60600708) Glucose POC (test code = 114 mg/dL 74-106 H 99502304) Hemoglobin POC (test 11.9 g/dL 12-16 L code = 67371350) Hematocrit POC (test 35.0 % 37.0-47.0 L code = 82104158) Lab Interpretation (test Abnormal code = 40775-7) [facility] BMP POC docked [id number] 13:48:46 Test Item Value Reference Range Interpretation Comments Sodium POC (test code = 126 mmol/L 136-145 L 56629119) Potassium POC (test code 4.4 mmol/L 3.5-5.1 = 66272213) Chloride POC (test code 100 mmol/L 98-107 = 00679705) TCO2 POC (test code = 17 mmol/L 21-32 L Physic aylin Notified 68118881) Urea Nitrogen POC (test 36 mg/dL 7-18 H code = 84755522) Glucose POC (test code = 114 mg/dL 74-106 H 92805363) Hemoglobin POC (test 11.9 g/dL 12-16 L code = 67376851) Hematocrit POC (test 35.0 % 37.0-47.0 L code = 40901288) Lab Interpretation (test Abnormal code = 25293-4) [facility]-CoV-2 ORF1ab Resp Ql OLENA+[id number] 20:25:16 Test Item Value Reference Range Interpretation Comments Hospitalized? (test No code = 70280-7) ICU? (test code = No 57900-8) Symptomatic as No defined by CDC? (test code = 19189-3) Employed in No Healthcare? (test code = 91054-0) Resident in a No congregate care setting (including nursing homes, residential care for people with intellectual and developmental disabilities, psychiatric treatment facilities, group homes, board and care homes, homeless senior care, foster care or other): (test code = 16336-9) SARS-CoV-2 ORF1ab NOT DETECTED Not Detected INTERPRETA TION: No Resp Ql OLENA+probe detectable levels of (test code = SARS-CoV-2 22145-7) Coronavirus (COVID-19) were present in this patient's [...] SARS-CoV-2 mole cular diagnostic assa y utilizes [employer] Hand Mediated Amplification ( TMA) technology to r apidly detect the SARS -CoV-2 (COVID-19) viru s from respiratory adriana ples. In accordance with\\XC2A0\\the FDA's guidance docume nt "Policy for Diagnostic Test s for Coronavirus Disease-2019 [address] [facility] the [facility]", ginger levine test was developed, and its performance characteristics were verified by the [facility] molecular diagn ostics laboratory and is authorized for clinical diagno stic use. \\XC2A0\\Ginger s laboratory is certified under the Clinical Labora tory Improvement Amendments (CLI A) as qualified to pe rform high complexity clinical labora tory testing. [facility] POC docked [id number] 11:16:15 Test Item Value Reference Range Interpretation Comments pH, Pankaj POC (test code 7.32 7.33-7.43 L = 52710952) pCO2,Pankaj POC (test code 31.0 See_Comment L [Au tomated = 06919410) message] The sy stem which generated this result transmitted reference range : 38 - 50 mmHg. The reference range was not used to interpret this result as normal/abnormal . PO2, Venous POC (BKR) 44 See_Comment L [Auto mated (test code = 96067052) [employer]] The system which generated this result transmitted reference range : 50 - 75 mm Hg. The reference range was not used to interpret this result as normal/abnormal . Ionized Calcium POC 1.24 mmol/L 1.15-1.29 (test code = 72496689) HCO3, Pankaj POC (test 16 mmol/L 22-26 L code = 69971962) TCO2 POC (test code = 17 mmol/L 21-32 L 61765524) Base Deficit, Pankaj POC -9 (test code = 89103028) Sample Type (test code IVFLORENCE Physi erik Notified = 11581839) % Sat, Pankaj POC (test 77 % code = 52728266) Lab Interpretation Abnormal (test code = 49780-0) [facility] VBG POC docked [id number] 11:16:15 Test Item Value Reference Range Interpretation Comments pH, Pankaj POC (test code 7.32 7.33-7.43 L = 75387031) pCO2,Pankaj POC (test code 31.0 See_Comment L [Au tomated = 72057597) message] The sy stem which generated this result transmitted reference range : 38 - 50 mmHg. The reference range was not used to interpret this result as normal/abnormal . PO2, Venous POC (BKR) 44 See_Comment L [Auto mated (test code = 24713505) [employer]] The system which generated this result transmitted reference range : 50 - 75 mm Hg. The reference range was not used to interpret this result as normal/abnormal . Ionized Calcium POC 1.24 mmol/L 1.15-1.29 (test code = 02054872) HCO3, Pankaj POC (test 16 mmol/L 22-26 L code = 27787658) TCO2 POC (test code = 17 mmol/L 21-32 L 02948219) Base Deficit, Pankaj POC -9 (test code = 19641813) Sample Type (test code IVFLORENCE Physi erik Notified = 50933879) % Sat, Pankaj POC (test 77 % code = 54839621) Lab Interpretation Abnormal (test code = 60081-1) [facility] VBG POC docked [id number] 11:16:15 Test Item Value Reference Range Interpretation Comments pH, Pankaj POC (test code 7.32 7.33-7.43 L = 86681919) pCO2,Pankaj POC (test code 31.0 See_Comment L [Au tomated = 74890832) message] The sy stem which generated this result transmitted reference range : 38 - 50 mmHg. The reference range was not used to interpret this result as normal/abnormal . PO2, Venous POC (BKR) 44 See_Comment L [Auto mated (test code = 31487213) [employer]] The system which generated this result transmitted reference range : 50 - 75 mm Hg. The reference range was not used to interpret this result as normal/abnormal . Ionized Calcium POC 1.24 mmol/L 1.15-1.29 (test code = 66484808) HCO3, Pankaj POC (test 16 mmol/L 22-26 L code = 94298860) TCO2 POC (test code = 17 mmol/L 21-32 L 40390741) Base Deficit, Pankaj POC -9 (test code = 25111577) Sample Type (test code IVEN Physi erik Notified = 50977724) % Sat, Pankaj POC (test 77 % code = 22714222) Lab Interpretation Abnormal (test code = 16494-5) [facility] VBG POC docked [id number] 11:16:15 Test Item Value Reference Range Interpretation Comments pH, Pankaj POC (test code 7.32 7.33-7.43 L = 52195127) pCO2,Pankaj POC (test code 31.0 See_Comment L [Au tomated = 84329689) message] The sy stem which generated this result transmitted reference range : 38 - 50 mmHg. The reference range was not used to interpret this result as normal/abnormal . PO2, Venous POC (BKR) 44 See_Comment L [Auto mated (test code = 38582742) [employer]] The system which generated this result transmitted reference range : 50 - 75 mm Hg. The reference range was not used to interpret this result as normal/abnormal . Ionized Calcium POC 1.24 mmol/L 1.15-1.29 (test code = 24779679) HCO3, Pankaj POC (test 16 mmol/L 22-26 L code = 14044794) TCO2 POC (test code = 17 mmol/L 21-32 L 46438867) Base Deficit, Pankaj POC -9 (test code = 35382021) Sample Type (test code IVEN Physi erik Notified = 03799508) % Sat, Pankaj POC (test 77 % code = 59912037) Lab Interpretation Abnormal (test code = 28513-8) [facility] VBG POC docked [id number] 11:16:15 Test Item Value Reference Range Interpretation Comments pH, Pankaj POC (test code 7.32 7.33-7.43 L = 34187985) pCO2,Pankaj POC (test code 31.0 See_Comment L [Au tomated = 80631571) message] The sy stem which generated this result transmitted reference range : 38 - 50 mmHg. The reference range was not used to interpret this result as normal/abnormal . PO2, Venous POC (BKR) 44 See_Comment L [Auto mated (test code = 01231571) [employer]] The system which generated this result transmitted reference range : 50 - 75 mm Hg. The reference range was not used to interpret this result as normal/abnormal . Ionized Calcium POC 1.24 mmol/L 1.15-1.29 (test code = 29129066) HCO3, Pankaj POC (test 16 mmol/L 22-26 L code = 65179572) TCO2 POC (test code = 17 mmol/L 21-32 L 03897177) Base Deficit, Pankaj POC -9 (test code = 28150217) Sample Type (test code STEPAN Moeller cian Notified = 61354271) % Sat, Pankaj POC (test 77 % code = 18015380) Lab Interpretation Abnormal (test code = 03260-0) [facility] VBG POC docked [id number] 11:16:15 Test Item Value Reference Range Interpretation Comments pH, Pankaj POC (test code 7.32 7.33-7.43 L = 18184062) pCO2,Pankaj POC (test code 31.0 See_Comment L [Au tomated = 40858011) message] The sy stem which generated this result transmitted reference range : 38 - 50 mmHg. The reference range was not used to interpret this result as normal/abnormal . PO2, Venous POC (BKR) 44 See_Comment L [Auto mated (test code = 21504193) [employer]] The system which generated this result transmitted reference range : 50 - 75 mm Hg. The reference range was not used to interpret this result as normal/abnormal . Ionized Calcium POC 1.24 mmol/L 1.15-1.29 (test code = 12555217) HCO3, Pankaj POC (test 16 mmol/L 22-26 L code = 62879358) TCO2 POC (test code = 17 mmol/L 21-32 L 97662531) Base Deficit, Pankaj POC -9 (test code = 31667182) Sample Type (test code STEPAN valencia Notified = 06110052) % Sat, Pankaj POC (test 77 % code = 68101077) Lab Interpretation Abnormal (test code = 38442-9) [facility] VBG POC docked [id number] 11:16:15 Test Item Value Reference Range Interpretation Comments pH, Pankaj POC (test code 7.32 7.33-7.43 L = 16332483) pCO2,Pankaj POC (test code 31.0 See_Comment L [Au tomated = 28369230) message] The sy stem which generated this result transmitted reference range : 38 - 50 mmHg. The reference range was not used to interpret this result as normal/abnormal . PO2, Venous POC (BKR) 44 See_Comment L [Auto mated (test code = 31435353) messa ge] The system which generated this result transmitted reference range : 50 - 75 mm Hg. The reference range was not used to interpret this result as normal/abnormal . Ionized Calcium POC 1.24 mmol/L 1.15-1.29 (test code = 07590973) HCO3, Pankaj POC (test 16 mmol/L 22-26 L code = 41357545) TCO2 POC (test code = 17 mmol/L 21-32 L 86669953) Base Deficit, Pankaj POC -9 (test code = 84177361) Sample Type (test code STEPAN valencia Notified = 86296618) % Sat, Pankaj POC (test 77 % code = 16140503) Lab Interpretation Abnormal (test code = 13793-2) [facility] VBG POC docked [id number] 11:16:15 Test Item Value Reference Range Interpretation Comments pH, Pankaj POC (test code 7.32 7.33-7.43 L = 04298043) pCO2,Pankaj POC (test code 31.0 See_Comment L [Au tomated = 93576433) message] The sy stem which generated this result transmitted reference range : 38 - 50 mmHg. The reference range was not used to interpret this result as normal/abnormal . PO2, Venous POC (BKR) 44 See_Comment L [Auto mated (test code = 70015351) [employer]] The system which generated this result transmitted reference range : 50 - 75 mm Hg. The reference range was not used to interpret this result as normal/abnormal . Ionized Calcium POC 1.24 mmol/L 1.15-1.29 (test code = 31744703) HCO3, Pankaj POC (test 16 mmol/L 22-26 L code = 00831674) TCO2 POC (test code = 17 mmol/L 21-32 L 32545339) Base Deficit, Pankaj POC -9 (test code = 79967094) Sample Type (test code IVEN Physi erik Notified = 39023333) % Sat, Pankaj POC (test 77 % code = 58365246) Lab Interpretation Abnormal (test code = 94013-7) [facility] VBG POC docked [id number] 11:16:15 Test Item Value Reference Range Interpretation Comments pH, Pankaj POC (test code 7.32 7.33-7.43 L = 41581840) pCO2,Pankaj POC (test code 31.0 See_Comment L [Au tomated = 56475046) message] The sy stem which generated this result transmitted reference range : 38 - 50 mmHg. The reference range was not used to interpret this result as normal/abnormal . PO2, Venous POC (BKR) 44 See_Comment L [Auto mated (test code = 38721579) [employer]] The system which generated this result transmitted reference range : 50 - 75 mm Hg. The reference range was not used to interpret this result as normal/abnormal . Ionized Calcium POC 1.24 mmol/L 1.15-1.29 (test code = 77027330) HCO3, Pankaj POC (test 16 mmol/L 22-26 L code = 49205908) TCO2 POC (test code = 17 mmol/L 21-32 L 55529017) Base Deficit, Pankaj POC -9 (test code = 03750204) Sample Type (test code IVEN Physi erik Notified = 60384346) % Sat, Pankaj POC (test 77 % code = 01855320) Lab Interpretation Abnormal (test code = 65829-2) [facility] VBG POC docked [id number] 11:16:15 Test Item Value Reference Range Interpretation Comments pH, Pankaj POC (test code 7.32 7.33-7.43 L = 45700069) pCO2,Pankaj POC (test code 31.0 See_Comment L [Au tomated = 26600215) message] The sy stem which generated this result transmitted reference range : 38 - 50 mmHg. The reference range was not used to interpret this result as normal/abnormal . PO2, Venous POC (BKR) 44 See_Comment L [Auto mated (test code = 21272948) [employer]] The system which generated this result transmitted reference range : 50 - 75 mm Hg. The reference range was not used to interpret this result as normal/abnormal . Ionized Calcium POC 1.24 mmol/L 1.15-1.29 (test code = 27285115) HCO3, Pankaj POC (test 16 mmol/L 22-26 L code = 80279108) TCO2 POC (test code = 17 mmol/L 21-32 L 25997367) Base Deficit, Pankaj POC -9 (test code = 25603792) Sample Type (test code IVFLORENCE Physi erik Notified = 92284498) % Sat, Pankaj POC (test 77 % code = 42590336) Lab Interpretation Abnormal (test code = 61495-6) [facility] VBG POC docked [id number] 11:16:15 Test Item Value Reference Range Interpretation Comments pH, Pankaj POC (test code 7.32 7.33-7.43 L = 18116907) pCO2,Pankaj POC (test code 31.0 See_Comment L [Au tomated = 43033007) message] The sy stem which generated this result transmitted reference range : 38 - 50 mmHg. The reference range was not used to interpret this result as normal/abnormal . PO2, Venous POC (BKR) 44 See_Comment L [Auto mated (test code = 22483121) [employer]] The system which generated this result transmitted reference range : 50 - 75 mm Hg. The reference range was not used to interpret this result as normal/abnormal . Ionized Calcium POC 1.24 mmol/L 1.15-1.29 (test code = 32896652) HCO3, Pankaj POC (test 16 mmol/L 22-26 L code = 17497734) TCO2 POC (test code = 17 mmol/L 21-32 L 32871205) Base Deficit, Pankaj POC -9 (test code = 85544627) Sample Type (test code STEPAN valencia Notified = 21567181) % Sat, Pankaj POC (test 77 % code = 85501593) Lab Interpretation Abnormal (test code = 49445-1) [facility] VBG POC docked [id number] 11:16:15 Test Item Value Reference Range Interpretation Comments pH, Pankaj POC (test code 7.32 7.33-7.43 L = 13943682) pCO2,Pankaj POC (test code 31.0 See_Comment L [Au tomated = 72771032) message] The sy stem which generated this result transmitted reference range : 38 - 50 mmHg. The reference range was not used to interpret this result as normal/abnormal . PO2, Venous POC (BKR) 44 See_Comment L [Auto mated (test code = 92463552) [employer]] The system which generated this result transmitted reference range : 50 - 75 mm Hg. The reference range was not used to interpret this result as normal/abnormal . Ionized Calcium POC 1.24 mmol/L 1.15-1.29 (test code = 80380660) HCO3, Pankaj POC (test 16 mmol/L 22-26 L code = 85580406) TCO2 POC (test code = 17 mmol/L 21-32 L 45419598) Base Deficit, Pankaj POC -9 (test code = 38532364) Sample Type (test code STEPAN valencia Notified = 55130539) % Sat, Pankaj POC (test 77 % code = 72256234) Lab Interpretation Abnormal (test code = 12808-8) [facility] VBG POC docked [id number] 11:16:15 Test Item Value Reference Range Interpretation Comments pH, Pankaj POC (test code 7.32 7.33-7.43 L = 38486128) pCO2,Pankaj POC (test code 31.0 See_Comment L [Au tomated = 40755178) message] The sy stem which generated this result transmitted reference range : 38 - 50 mmHg. The reference range was not used to interpret this result as normal/abnormal . PO2, Venous POC (BKR) 44 See_Comment L [Auto mated (test code = 49327876) [employer]] The system which generated this result transmitted reference range : 50 - 75 mm Hg. The reference range was not used to interpret this result as normal/abnormal . Ionized Calcium POC 1.24 mmol/L 1.15-1.29 (test code = 48680380) HCO3, Pankaj POC (test 16 mmol/L 22-26 L code = 91438137) TCO2 POC (test code = 17 mmol/L 21-32 L 57852361) Base Deficit, Pankaj POC -9 (test code = 41910737) Sample Type (test code IVFLORENCE Physi erik Notified = 08730193) % Sat, Pankaj POC (test 77 % code = 87786414) Lab Interpretation Abnormal (test code = 61138-0) [facility] VBG POC docked [id number] 11:16:15 Test Item Value Reference Range Interpretation Comments pH, Pankaj POC (test code 7.32 7.33-7.43 L = 82552491) pCO2,Pankaj POC (test code 31.0 See_Comment L [Au tomated = 49170159) message] The sy stem which generated this result transmitted reference range : 38 - 50 mmHg. The reference range was not used to interpret this result as normal/abnormal . PO2, Venous POC (BKR) 44 See_Comment L [Auto mated (test code = 60205787) [employer]] The system which generated this result transmitted reference range : 50 - 75 mm Hg. The reference range was not used to interpret this result as normal/abnormal . Ionized Calcium POC 1.24 mmol/L 1.15-1.29 (test code = 75855773) HCO3, Pankaj POC (test 16 mmol/L 22-26 L code = 69561516) TCO2 POC (test code = 17 mmol/L 21-32 L 00334228) Base Deficit, Pankaj POC -9 (test code = 14775399) Sample Type (test code IVFLORENCE Physi erik Notified = 26911753) % Sat, Pankaj POC (test 77 % code = 30809909) Lab Interpretation Abnormal (test code = 21151-7) [facility] VBG POC docked [id number] 11:16:15 Test Item Value Reference Range Interpretation Comments pH, Pankaj POC (test code 7.32 7.33-7.43 L = 95762998) pCO2,Pankaj POC (test code 31.0 See_Comment L [Au tomated = 40284589) message] The sy stem which generated this result transmitted reference range : 38 - 50 mmHg. The reference range was not used to interpret this result as normal/abnormal . PO2, Venous POC (BKR) 44 See_Comment L [Auto mated (test code = 03136299) [employer]] The system which generated this result transmitted reference range : 50 - 75 mm Hg. The reference range was not used to interpret this result as normal/abnormal . Ionized Calcium POC 1.24 mmol/L 1.15-1.29 (test code = 40935095) HCO3, Pankaj POC (test 16 mmol/L 22-26 L code = 55581697) TCO2 POC (test code = 17 mmol/L 21-32 L 09587963) Base Deficit, Pankaj POC -9 (test code = 21887855) Sample Type (test code IVEN Physi erik Notified = 78311811) % Sat, Pankaj POC (test 77 % code = 24093278) Lab Interpretation Abnormal (test code = 22112-9) [facility] VB POC docked [id number] 11:16:15 Test Item Value Reference Range Interpretation Comments pH, Pankaj POC (test code 7.32 7.33-7.43 L = 93416501) pCO2,Pankaj POC (test code 31.0 See_Comment L [Au tomated = 93680286) message] The sy stem which generated this result transmitted reference range : 38 - 50 mmHg. The reference range was not used to interpret this result as normal/abnormal . PO2, Venous POC (BKR) 44 See_Comment L [Auto mated (test code = 97336668) [employer]] The system which generated this result transmitted reference range : 50 - 75 mm Hg. The reference range was not used to interpret this result as normal/abnormal . Ionized Calcium POC 1.24 mmol/L 1.15-1.29 (test code = 34226631) HCO3, Pankaj POC (test 16 mmol/L 22-26 L code = 82925620) TCO2 POC (test code = 17 mmol/L 21-32 L 57982808) Base Deficit, Pankaj POC -9 (test code = 12847749) Sample Type (test code IVEN Physi erik Notified = 75444253) % Sat, Pankaj POC (test 77 % code = 71652735) Lab Interpretation Abnormal (test code = 25300-0) [facility] VBG POC docked [id number] 11:16:15 Test Item Value Reference Range Interpretation Comments pH, Pankaj POC (test code 7.32 7.33-7.43 L = 36234060) pCO2,Pankaj POC (test code 31.0 See_Comment L [Au tomated = 00869925) message] The sy stem which generated this result transmitted reference range : 38 - 50 mmHg. The reference range was not used to interpret this result as normal/abnormal . PO2, Venous POC (BKR) 44 See_Comment L [Auto mated (test code = 90331917) [employer]] The system which generated this result transmitted reference range : 50 - 75 mm Hg. The reference range was not used to interpret this result as normal/abnormal . Ionized Calcium POC 1.24 mmol/L 1.15-1.29 (test code = 13789422) HCO3, Pankaj POC (test 16 mmol/L 22-26 L code = 17709557) TCO2 POC (test code = 17 mmol/L 21-32 L 54879323) Base Deficit, Pankaj POC -9 (test code = 95875878) Sample Type (test code IVEN Physi erik Notified = 24391373) % Sat, Pankaj POC (test 77 % code = 28133644) Lab Interpretation Abnormal (test code = 71746-7) [place] [address] LEAD [id number] 20:59:5612 LEAD EKG FOR [facility] Test Date: 7085-17-38Hih Name: DORA JOSEPH Department: 5520Patient ID: [id number] Room: Gender: M Adjuster Arbitrator: [id number]: 1970 Requested By: TANJA Garza Number: [id number] Lawson MD: Chiara Calles MeasurementsIntervals [place] Rate: 75 P: 84PR: 153 QRS: 67QRSD: 104 T: 77QT: 344 QTc: 373 Interpretive StatementsSINUS RHYTHMPOSSIBLE RIGHT VENTRICULAR CONDUCTION DELAY [RSR (QR) IN V1/V2]Electronically Signed On 01-09-2022 8:27:19 CDT by Chiara [place] [address] LEAD [id number] 20:59:5612 LEAD EKG FOR [facility] Test Date: 9689-90-22Arw Name: DORA JOSEPH Department: 5520Patient ID: [id number] Room: Gender: M Adjuster Arbitrator: [id number]: 1970 Requested By: TANJA Garza Number: [id number] Reading MD: Chiara Calles MeasurementsIntervals [place] Rate: 75 P: 84PR: 153 QRS: 67QRSD: 104 T: 77QT: 344 QTc: 373 Interpretive StatementsSINUS RHYTHMPOSSIBLE RIGHT VENTRI CULAR CONDUCTION DELAY [RSR (QR) IN V1/V2]Electronically Signed On 01-09-2022 8:27:19 CDT by Chiara SR LabsbakariNautitChi [facility] HospitalUniversal World Entertainment LLC12 LEAD [id number] 20:59:5612 LEAD EKG FOR [facility] Test Date: 9128-50-88Lfl Name: DORA PAEZRY Department: 5520Patient ID: [id number] Room: Gender: M Adjuster Arbitrator: [id number]: 1970 Requested By: TANJA Garza Number: [id number] Reading MD: Chiara Calles MeasurementsIntervals [place] Rate: 75 P: 84PR: 153 QRS: 67QRSD: 104 T: 77QT: 344 QTc: 373 Interpretive StatementsSINUS RHYTHMPOSSIBLE RIGHT VENTRICULAR CONDUCTION DELAY [RSR (QR) IN V1/V2]Electronically Signed On 01-09-2022 8:27:19 CDT by Chiara SR LabsAngelUniversal World Entertainment LLC12 LEAD [id number] 20:59:5612 LEAD EKG FOR [facility] Test Date: 9189-91-31Hpr Name: DORA PAEZRY Department: 5520Patient ID: [id number] Room: Gender: M Adjuster Arbitrator: [id number]: 1970 Requested By: TANJA Garza Number: [id number] Reading MD: Chiara Calles MeasurementsIntervals [place] Rate: 75 P: 84PR : 153 QRS: 67QRSD: 104 T: 77QT: 344 QTc: 373 Interpretive StatementsSINUS RHYTHMPOSSIBLE RIGHT VENTRICULAR CONDUCTION DELAY [RSR (QR) IN V1/V2]Electronically Signed On 01-09-2022 8:27:19 CDT by Chiara Mobi Tech InternationalChi [address] HospitalRadLogics [place] [address] LEAD [id number] 20:59:5612 LEAD EKG FOR [facility] Test Date: 9147-46-96Itm Name: DORA JOSEPH Department: 5520Patient ID: [id number] Room: Gender: M Adjuster Arbitrator: [id number]: 1970 Requested By: TANJA Garza Number: [id number] Reading MD: Chiara Calles MeasurementsIntervals [place] Rate: 75 P: 84PR: 153 QRS: 67QRSD: 104 T: 77QT: 344 QTc: 373 Interpretive StatementsSINUS RHYTHMPOSSIBLE RIGHT VENTRICULAR CONDUCTION DELAY [RSR (QR) IN V1/V2]Electronically Signed On 01-09-2022 8:27:19 CDT by [facility] HospitalROI land investmentChi St[facility] Vincent [facility] HospitalRadLogics [place] [address] LEAD [id number] 20:59:5612 LEAD EKG FOR [facility] Test Date: 6765-91-76Qil Name: DORA JOSEPH Department: 5520Patient ID: [id number] Room: Gender: M Adjuster Arbitrator: [id number]: 1970 Requested By: TANJA Garza Number: [id number] Reading MD: Chiara Calles MeasurementsIntervals [place] Rate: 75 P: 84PR: 153 QRS: 67QRSD: 104 T: 77QT: 344 QTc: 373 Interpretive StatementsSINUS RHYTHMPOSSIBLE RIGHT VENT RICULAR CONDUCTION DELAY [RSR (QR) IN V1/V2]Electronically Signed On 01-09-2022 8:27:19 CDT by [facility] HospitalMobi Tech InternationalSteven [place] [address] LEAD [id number] 20:59:5612 LEAD EKG FOR [facility] Test Date: 3637-34-52Kwo Name: DORA JOSEPH Department: 5520Patient ID: [id number] Room: Gender: M Adjuster Arbitrator: [id number]: 1970 Requested By: TANJA Garza Number: [id number] Reading MD: Chiara Calles MeasurementsIntervals [place] Rate: 75 P: 84PR: 153 QRS: 67QRSD: 104 T: 77QT: 344 QTc: 373 Interpretive StatementsSINUS RHYTHMPOSSIBLE RIGHT VENTRICULAR CONDUCTION DELAY [RSR (QR) IN V1/V2]Electronically Signed On 01-09-2022 8:27:19 CDT by W[employer]12 LEAD [id number] 20:59:5612 LEAD EKG FOR [facility] Test Date: 4995-72-97Nxo Name: DORA PAEZRY Department: 5520Patient ID: [id number] Room: Gender: M Adjuster Arbitrator: [id number]: 1970 Requested By: TANJA Garza Number: [id number] Reading MD: Chiara Calles MeasurementsIntervals [place] Rate: 75 P: 84PR: 153 QRS: 67QRSD: 104 T: 77QT: 344 QTc: 373 Interpretive StatementsSINUS RHYTHMPOSSIBLE RIGHT VENTRICULAR CONDUCTION DELAY [RSR (QR) IN V1/V2]Electronically Signed On 01-09-2022 8:27:19 CDT by Walrobert SR LabsbakariNautitChi [facility] HospitalUniversal World Entertainment LLC12 LEAD [id number] 20:59:5612 LEAD EKG FOR [facility] Test Date: 7690-55-19Dbr Name: DORA [place] Department: 5520Patient ID: [id number] Room: Gender: M Adjuster Arbitrator: [id number]: 1970 Requested By: TANJA Garza Number: [id number] Lawson MD: Chiara Clales MeasurementsIntervals [place] Rate: 75 P: 84PR: 153 QRS: 67QRSD: 104 T: 77QT: 344 QTc: 373 Interpretive StatementsSINUS RHYTHMPOSSIBLE RIGHT VENTRICULAR CONDUCTION DELAY [RSR (QR) IN V1/V2]Electronically Signed On 01-09-2022 8:27:19 CDT [address]I [address] investmentChi [address] Vincent [facility] HospitalUniversal World Entertainment LLC12 LEAD [id number] 20:59:5612 LEAD EKG FOR [facility] Test Date: 1950-59-56Gzv Name: DORA PAEZRY Department: 5520Patient ID: [id number] Room: Gender: M Adjuster Arbitrator: [id number]: 1970 Requested By: TANJA Garza Number: [id number] Reading MD: Chiara Calles MeasurementsIntervals [place] Rate: 75 P: 84PR: 153 QRS: 67QRSD: 104 T: 77QT: 344 QTc: 373 Interpretive StatementsSINUS RHYTHMPOSSIBLE RIGHT VENT RICULAR CONDUCTION DELAY [RSR (QR) IN V1/V2]Electronically Signed On 01-09-2022 8:27:[address] Vincent North HospitalUniversal World Entertainment LLC12 LEAD [id number] 20:59:5612 LEAD EKG FOR [facility] Test Date: 3007-10-92Wgi Name: DORA [place] Department: 5520Patient ID: [id number] Room: Gender: M Adjuster Arbitrator: [id number]: 1970 Requested By: TANJA Garza Number: [id number] Reading MD: Chiara Calles MeasurementsIntervals [place] Rate: 75 P: 84PR: 153 QRS: 67QRSD: 104 T: 77QT: 344 QTc: 373 Interpretive StatementsSINUS RHYTHMPOSSIBLE RIGHT VENTRICULAR CONDUCTION DELAY [RSR (QR) IN V1/V2]Electronically Signed On 01-09-2022 8:27:19 CDT by [employer] LEAD [id number] 20:59:5612 LEAD EKG FOR [facility] Test Date: 2342-41-94Hww Name: DORA [place] Department: 5520Patient ID: [id number] Room: Gender: M Adjuster Arbitrator: [id number]: 1970 Requested By: TANJA Garza Number: [id number] Reading MD: Chiara Calles MeasurementsIntervals [place] Rate: 75 P: 84PR: 153 QRS: 67QRSD: 104 T: 77QT: 344 QTc: 373 Interpretive StatementsSINUS RHYTHMPOSSIBLE RIGHT VENTRICULAR CONDUCTION DELAY [RSR (QR) IN V1/V2]Electronically Signed On 01-09-2022 8:27:19 CDT by [employer] LEAD [id number] 20:59:5612 LEAD EKG FOR [facility] Test Date: 8676-42-26Jjm Name: [facility] Department: 5520Patient ID: [id number] Room: Gender: M Adjuster Arbitrator: [id number]: 1970 Requested By: TANJA Garza Number: [id number] Reading MD: Chiara Calles MeasurementsIntervals [place] Rate: 75 P: 84PR: 153 QRS: 67QRSD: 104 T: 77QT: 344 QTc: 373 Interpretive StatementsSINUS RHYTHMPOSSIBLE RIGHT VENTRICULAR CONDUCTION DELAY [RSR (QR) IN V1/V2]Electronically Signed On 01-09-2022 8:27:19 CDT by [employer] LEAD [id number] 20:59:5612 LEAD EKG FOR [facility] Test Date: 1514-49-41Uls Name: DORA JOSEPH Department: 5520Patient ID: [id number] Room: Gender: M Adjuster Arbitrator: [id number]: 1970 Requested By: TANJA Garza Number: [id number] Reading MD: Chiara Calles MeasurementsIntervals [place] Rate: 75 P: 84PR: 153 QRS: 67QRSD: 104 T: 77QT: 344 QTc: 373 Interpretive StatementsSINUS RHYTHMPOSSIBLE RIGHT VENT RICULAR CONDUCTION DELAY [RSR (QR) IN V1/V2]Electronically Signed On 01-09-2022 8:27:19 CDT by [employer] LEAD [id number] 20:59:5612 LEAD EKG FOR [facility] Test Date: 6525-13-30Ufm Name: DORA JOSEPH Department: 5520Patient ID: [id number] Room: Gender: M Adjuster Arbitrator: [id number]: 1970 Requested By: TANJA Garza Number: [id number] Reading MD: Chiara Calles MeasurementsIntervals [place] Rate: 75 P: 84PR: 153 QRS: 67QRSD: 104 T: 77QT: 344 QTc: 373 Interpretive StatementsSINUS RHYTHMPOSSIBLE RIGHT VENTRICULAR CONDUCTION DELAY [RSR (QR) IN V1/V2]Electronically Signed On 01-09-2022 8:27:19 CDT by [employer] LEAD [id number] 20:59:5612 LEAD EKG FOR [facility] Test Date: 9966-24-84Onl Name: DORA JOSEPH Department: 5520Patient ID: [id number] Room: Gender: M Adjuster Arbitrator: [id number]: 1970 Requested By: TANJA Garza Number: [id number] Reading MD: Chiara Calles MeasurementsIntervals [place] Rate: 75 P: 84PR: 153 QRS: 67QRSD: 104 T: 77QT: 344 QTc: 373 Interpretive StatementsSINUS RHYTHMPOSSIBLE RIGHT VENTRICULAR CONDUCTION DELAY [RSR (QR) IN V1/V2]Electronically Signed On 01-09-2022 8:27:19 CDT by [facility] SusanStacy [place] [address] LEAD [id number] 20:59:5612 LEAD EKG FOR [facility] Test Date: 0917-96-36Nst Name: DORA JOSEPH Department: 5520Patient ID: [id number] Room: Gender: M Adjuster Arbitrator: [id number]: 1970 Requested By: TANJA Garza Number: [id number] Reading MD: Chiara Calles MeasurementsIntervals [place] Rate: 75 P: 84PR: 153 QRS: 67QRSD: 104 T: 77QT: 344 QTc: 373 Interpretive StatementsSINUS RHYTHMPOSSIBLE RIGHT VENTRICULAR CONDUCTION DELAY [RSR (QR) IN V1/V2]Electronically Signed On 01-09-2022 8:27:19 CDT by [facility] Hospitalro[facility]St[facility]/AUTO [id number] 23:52:00 Test Item Value Reference Range Interpretation [...] = MX#) 0.8 k/mm3 0.1-0.8 N LIVER [id number] 20:04:00 Test Item Value Reference Range Interpretation Comments TOTAL PROTEIN (test code 6.7 GM/DL 5.0-8.0 N Per formed by = PROT) 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 [facility] ALBUMIN (test code = 3.4 [...] 67 UNITS/L 25-125 N LYNDSEY) BASIC METABOLIC [id number] 19:54:00 Test Item Value Reference Range Interpretation [...] POCGLU) 81 MG/DL - CT ABD PELVIS W/[id number] 00:00:00 [facility] MARIA ISABEL JOSEPH : 1970 Sex: M Name:MARIA ISABEL JOSEPH FSED : 1970 Age/S: 51 / M [address] [facility] Unit #: [id number] Loc: [place] [address] Phys: Raffaele Levi MD Acct: [id number] Dis Date: Status: PRE ER PHONE #: Exam Date: 09/23/20211999 FAX #: Reason: RUQ PAIN, VOMITING EXAMS: CPT CODE: [id number] CT ABD PELVIS W/CONT 83638 PROCEDURE INFORMATION: Exam: CT Abdomen And Pelvis [...] : 1970 Age/S: 51 / M [address] [facility] Unit #: [id number] Loc: [place] [address] Phys: Raffaele Levi MD Acct: [id number] Dis Date: Status: PRE ER PHONE #: Exam Date: 09/23/20211999 FAX #: Reason: RUQ PAIN, VOMITING EXAMS: CPT CODE:[id number] CT ABD PELVIS W/CONT 19185 <Continued> abdominal small bowel loops may relate to incomplete luminal distention or enteritis. 2. 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 No obstruction. Electronically Signedby Renée Juarez on 09/23/2021 at 2048 Reported and signed by: Juan Juarez M.D. CC: Raffaele Levi MD Technologist:Stephanie Albrecht RT(R)(CT) CTDI: DLP: Trnscb Date/Time: 09/23/2021 (2048) t.SDR.SG9 Orig Print D/T: S: 09/23/2021 (2049) PAGE 2 Signed Report COMPREHENSIVE METABOLIC [id number] 11:51:00 Test Item Value Reference Range Interpretation [...] Units/L 50.0-136.0 N code = ALKP) PROTHROMBIN [id number] 11:41:00 Test Item Value Reference Range Interpretation Comments PROTHROMBIN TIME 10.9 SECONDS 9.9-12.8 N PATIENT (test code = PTP) INTERNATIONAL NORMAL 0.9 0.89-1.14 N THE INR IS TO BE USED RATIO (test code = ONLY FOR MONITORING INR) ORAL ANTICOAGULANTTH ERAPY. THE FOLLOWING A RE SUGGESTED RANGE S FROM [facility]:LOLITA CATION INR VALUEPROPHY LAXIS OF VENOUS THROM BOSIS (ORTHOPEDIC PAKO BOB) 2.0 - 3.0PROPHY LAXIS OF VENOUS THROM BOSIS (OTHER THAN HIG H-RISK SURGERY) 2.0 - 3.0TREATMENT OF DEEP VEIN THROMBOSIS OR PULMONARY EMBOL ISM 2.0 - 3.0PREVEN TION OF SYSTEMIC EMBOLI SM TISSUE HEART VA [...] D ANTIBODIES 2.5 - 3.5 CBC W/AUTO [id number] 11:36:00 Test Item Value Reference Range Interpretation [...] X10 3uL 0.00-0.01 N NRBC#) CBC W/AUTO [id number] 09:48:00 Test Item Value Reference Range Interpretation [...] = MX#) 0.8 k/mm3 0.1-0.8 N GLUCOSE [id number] 06:12:00 Test Item Value Reference Range Interpretation Comments GLUCOSE BEDSIDE (test 129 MG/DL 70-110 H [facility] med by certified code = GLUBED) extractor and 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 operator at [facility] BASIC METABOLIC [id number] 05:21:00 Test Item Value Reference Range Interpretation [...] (test code = POCGLU) 92 MG/DL GLUCOSE [id number] 05:19:00 Test Item Value Reference Range Interpretation Comments GLUCOSE BEDSIDE (test 51 MG/DL 70-110 L [facility] med by certified code = GLUBED) extractor and wringer operator at [facility] CBC W/AUTO [id number] 14:00:00 Test Item Value Reference Range Interpretation [...] MX#) 0.2 k/mm3 0.1-0.8 N CBC W/AUTO [id number] 00:07:00 Test Item Value Reference Range Interpretation [...] = LY#) 2.4 K/uL 1.0-3.8 N LIVER [id number] 16:14:00 Test Item Value Reference Range Interpretation Comments TOTAL PROTEIN (test code 7.5 GM/DL 5.0-8.0 N Per formed by = PROT) 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 [facility] ALBUMIN (test code = 3.9 [...] 65 UNITS/L 25-125 N LYNDSEY) BASIC METABOLIC [id number] 16:07:00 Test Item Value Reference Range Interpretation [...] POCGLU) 96 MG/DL - XR CHEST 1 [id number] 00:00:00 [facility] : 1970 Sex: MFAX: Steve Urias MD [phone] [place]: DC St: PRE Name: DORA JOSEPH MARIA ISABEL Castro FSED : 1970 Age/S: 51/M [address] [facility] Unit #: [id number] Loc: [place] [address] Phys: Steve Urias MD Acct: [id number] Dis Date: Status: PRE ER PHONE #: Exam Date: 06/27/2021 1544 FAX #: Reason: Abdominal PainEXAMS: CPT CODE: [id number] XR CHEST 1 V 50584 PROCEDURE INFORMATION: Exam: XR Chest Exam date [...] MD Technologist: RT Alanna(R)(CT) Trnscrd Date/Time/By: 06/27/2021 (4790) : By: [email or web address] Orig Print D/T: S: 06/27/2021 (9123) PAGE 1 Signed Report- CT ABD PELVIS W/[id number] 00:00:00 [facility] [place] : 1970 Sex: MName: DORA JOSEPH FSED : 1970 Age/S: 51 / M [address] [facility] Unit #: [id number] Loc: [place] [address] Phys: Steve Urias MD Acct: [id number] Dis Date: Status: REG ER PHONE #: Exam Date: 06/27/2021 162 FAX #: Reason: pain in region of colostomy EXAMS: CPT CODE: [id number] CT ABD PELVIS W/CONT 36947 PROCEDURE INFORMATION: Exam: CT Abdomen And Pelvis [...] : 1970 Age/S: 51 / M [address] [facility] Unit #: [id number] Loc: [place] [address] Phys: Steve Urias MD Acct: [id number] Dis Date: Status: REG ER PHONE #: Exam Date: 06/27/2021 1621 FAX #: Reason: pain in region of colostomy EXAMS: CPT CODE: [id number] CT ABD PELVIS W/CONT 43437 <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 There is no evidence of associated intestinal obstruction. 2. No additional acute CT abnormalities of the abdomen or pelvis are identified. SL:131 at 1650 Reported and signed by: Marco Raman M.D. CC: Steve Urias MD Technologist:Yecenia Solomon, RT(R)(CT) CTDI: DLP: Trnscb Date/Time: 06/27/2021 (1649) [place] Orig Print D/T: S: 06/27/2021 (1649) PAGE 2 Signed ReportC W/AUTO [id number] 09:20:00 Test Item Value Reference Range Interpretation [...] (test code NO = MDIFF) CBC W/AUTO [id number] 08:59:00 Test Item Value Reference Range Interpretation [...] REQUIRED (test code = MDIFF) BASIC METABOLIC [id number] 08:21:00 Test Item Value Reference Range Interpretation [...] 8.4 mg/dL 8.0-10.5 N CA) BASIC METABOLIC [id number] 08:34:00 Test Item Value Reference Range Interpretation [...] 8.4 mg/dL 8.0-10.5 N CA) CBC W/AUTO [id number] 07:41:00 Test Item Value Reference Range Interpretation [...] = MDIFF) UA RFLX MICR CULT IF [id number] 10:10:00 Test Item Value Reference Range Interpretation [...] Suprapubic Pain Temperature > 100.4 FSpecimen Description: [facility] [id number] 04:13:00 Test Item Value Reference Range Interpretation [...] mg/dL 8.0-10.5 N CA) Coronavirus 2019 nCoV [id number] 22:03:00 Test Item Value Reference Range Interpretation Comments Coronavirus 2019 Negative Negative Performed b y certified nCoV Bedside (pressure testing technician at [place] [facility] code = CtrNegative res ults should [id number]) be treated as presumptive and, ifinconsis tent with clinical signs and symptoms or necessaryfor patient management, fifi uld be tested with an alternativemole cular assay. Negative result s do not preclude YFCF-EcX-2hegjq tion and should not be u sed as the sole basis forp atient management deci sions. Negative result s should beconsidered in the context of a patient's recent exposures,histo ry, presence of clinical sig ns and symptoms consis tentwith COVID-19. CBC W/AUTO [id number] 21:11:00 Test Item Value Reference Range Interpretation [...] MX#) 0.6 k/mm3 0.1-0.8 N BASIC METABOLIC [id number] 19:00:00 Test Item Value Reference Range Interpretation [...] POCGLU) 92 MG/DL - CT ABD PELVIS W/[id number] 00:00:00 [facility] [place] : 1970 Sex: MName: DORA JOSEPH FS : 1970 Age/S: 51 / M [address] [facility] Unit #: [id number] Loc: [place] [address] Phys: Marcello Benoit MD Acct: [id number] Dis Date: Status: REG ERPHONE #: Exam Date: 04/28/20211913 FAX #: Reason: epigastric and LLQ pain, R-sided colostomy EXAMS:CPT CODE: [id number] CT ABD PELVIS W/CONT 46207 PROCEDURE INFORMATION: Exam: CT Abdomen And Pelvis [...] : 1970 Age/S: 51 / M [address] [facility] Unit #: [id number] Loc: [place] [address] Phys: Marcello Benoit MD Acct: [id number] Dis Date: Status: REG ER PHONE #: Exam Date: 04/28/2021 1914 FAX #: Reason: epigastric and LLQ pain, R-sided colostomy EXAMS: CPT CODE: [id number] CT ABD PELVIS W/CONT 75760 <Continued> Reproductive: Unremarkable as visualized. Bones/joints: Unremarkable. 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 Acct: [id number] Dis Date: Status: ADM IN PHONE#: [phone] Exam Date: 02/25/2020 1036 FAX #: Reason: abdominal distention EXAMS: CPT: [id number] XR ABDOMEN 1 V 54904 Fluoro Time: DAP (Gy m2): Air Kerma [...] Signed Report Name: DORA JOSEPH [facility] : 1970 Age/S: 50 / M [address] [place] Unit #: [id number] Loc: [place] [address] 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 Acct: [id number] Dis Date: Status: ADM IN PHONE #: [phone] Exam Date: 02/25/2020 1036 FAX #: Reason: abdominal distention EXAMS: CPT: [id number] XR ABDOMEN 1 V 46371 Fluoro Time: DAP (Gy m2): Air Kerma (mGy): <Continued> T echnologist: Nichole Dill, RT(R) Trnscb Date/Time: 02/25/2020 (9553) [email or web address] Orig Print D/T: S: 02/25/2020 (0734) PAGE 2 Signed Report COMPREHENSIVE METABOLIC [id number] 08:20:00 Test Item Value Reference Range Interpretation [...] 50-136 L TOTAL (test code = ALKP) [id number] 08:20:00 Test Item Value Reference Range Interpretation Comments MAGNESIUM (test code = MAG) 2.2 MG/DL 1.8-2.4 N THYROID STIMULATING [id number] 08:20:00 Test Item Value Reference Range Interpretation Comments THYROID STIMULATING HORMONE 5.430 mcIU/ML 0.340-4.820 H (test code = TSH) CBC W/AUTO [id number] 07:55:00 Test Item Value Reference Range Interpretation [...] N NRBC#) UA RFLX MICR CULT IF [id number] 12:29:00 Test Item Value Reference Range Interpretation [...] culture: Suprapubic PainUA RFLX MICR CULT IF [id number] 12:29:00 Test Item Value Reference Range Interpretation [...] for culture: Suprapubic PainCOVID 19 Asymptomatic IH [id number] 22:09:00 Test Item Value Reference Range Interpretation [...] tent with COVID-19. - CT ABD PELVIS W/[id number] 21:10:00 Name: DORA JOSEPH [facility] [place] : 1970 Age/S: 50 / M [address] Unit #: [id number] Loc: [place] [address] Phys: Evin Castellanos MD Acct: [id number] Dis Date: Status: REG ER PHONE #: [phone] Exam Date: 02/23/20202047 FAX #: Reason: diffuse abdomen pain and distention EXAMS: CPT: [id number] CT ABD PELVIS W/CONT 81827 EXAM: - CT ABD PELVIS W/CONT LOCATION: [...] 1 Signed Report (CONTINUED) Name: DORA JOSEPH [place] : 1970 Age/S: 50 / M [address] Unit #: [id number] Loc: [place] [address] Phys: Evin Castellanos MD Acct: [id number] Dis Date: Status: REG ER PHONE #: [phone] Exam Date: 02/23/20202047 FAX #: Reason: diffuse abdomen pain and distention EXAMS: CPT: [id number] CTABD PELVIS W/CONT 73800 <Continued> CT. No bowel wall thickening or [...] RT(R)(CT)(MRI) CTDI: DLP: Trnscb Date/Time: 02/23/2020 (2109) GarettXU45Abie Print D/T: S: 02/23/2020 (2112) PAGE 2 Signed Report- XR CHEST 1 [id number] 21:03:00 Name: DORA JOSEPH [place] : 1970 Age/S: 50 / M [address] Unit #: [id number] Loc: [place] [address] Phys: Evin Castellanos MD Acct: [id number] Dis Date: Status: REG ERPHONE #: [phone] Exam Date: 02/23/20202055 FAX #: Reason: Code Sepsis EXAMS: CPT: [id number] XR CHEST 1 V 67707 Fluoro Time: DAP (Gy m2): Air Kerma [...] by: Monica Quijano MD CC: Susana Meza BEHAVIORAL MODIFICATION ASSISTANT; Carl Luevano MD PAGE 1 Signed Report Name: DORA JOSEPH [facility] : 1970 Age/S: 50 / M [address] Unit #: [id number] Loc: [place] [address] Phys: Evin Castellanos MD Acct: [id number] Dis Date: Status: REG ER PHONE #: [phone] Exam Date: 02/23/20202055 FAX #: Reason: Code Sepsis EXAMS: CPT: [id number] XR CHEST 1 V 33364 Fluoro Time: DAP (Gy m2): Air Kerma (mGy): <Continued> Technologist: Rudy Zuniga RT(R)(CT)(MRI) Trnscb Date/Time: 02/23/2020 (2102) tCARLAW Orig Print D/T:S: 02/23/2020 (2106) PAGE 2 [...] 8.5-10.1 N Completed by Nursing: NOHEPATIC FUNCTION [id number] 20:02:00 Test Item Value Reference Range Interpretation [...] N code = ALKP) Completed by Nursing: [id number] 20:02:00 Test Item Value Reference Range Interpretation Comments LIPASE (test code = LIP) 97 Unit/L 114-286 L Completed by Nursing: [id number]-[id number] 20:02:00 Test Item Value Reference Range Interpretation [...] brittani yby method. Completed by Nursing: NOLACTIC [id number] 19:59:00 Test Item Value Reference Range Interpretation Comments LACTIC ACID (test code = LACT) 1.2 mmol/L 0.4-2.0 N CBC W/AUTO [id number] 19:46:00 Test Item Value Reference Range Interpretation [...] CRITERIA = MDIFF) - XR ABDOMEN 2 [id number] 06:22:00 Name: DORA JOSEPH [place] : 1970 Age/S: 50 / M [address] Unit #: [id number] Loc: [place] [address] Phys: León Robertson MD Acct: [id number] Dis Date: Status: ADM INPHONE #: [phone] Exam Date: 02/19/2020 0440 FAX #: Reason: megacolon EXAMS: CPT: [id number] XRABDOMEN 2 V 39995 Fluoro Time: DAP (Gy m2): Air Kerma [...] PAGE 1 Signed Report Name: DORA JOSEPH [place] : 1970 Age/S: 50 / M [address] Unit #: [id number] Loc: [place] [address] Phys: León Robertson MD Acct: [id number] Dis Date: Status: ADM IN PHONE #: [phone] Exam Date: 02/19/2020 0440 FAX #: Reason: megacolon EXAMS:CPT: [id number] XR ABDOMEN 2 V 07376 Fluoro Time: DAP (Gy m2): Air Kerma (mGy): <Continued> Technologist: Carrie Barnett, RT(R)(CT) Trnscb Date/Time: 02/19/2020 (06) tDARWINR.AL7 Orig Print D/T: S: 02/19/2020 (0660) PAGE 2 Signed ReportBASIC METABOLIC [id number] 05:52:00 Test Item Value Reference Range Interpretation [...] CA) 8.5 MG/DL 8.5-10.1 N CBC W/AUTO [id number] 05:40:00 Test Item Value Reference Range Interpretation [...] NO DIFF/SCN CRITERIA = MDIFF) BASIC METABOLIC [id number] 06:52:00 Test Item Value Reference Range Interpretation [...] CA) 8.3 MG/DL 8.5-10.1 L CBC W/AUTO [id number] 06:39:00 Test Item Value Reference Range Interpretation [...] DIFF/SCN CRITERIA = MDIFF) Coronavirus 2018 nCoV [id number] 05:35:00 Test Item Value Reference Range Interpretation [...] tent with COVID-19. - XR ABDOMEN 1 [id number] 07:32:00 Name: DORA JOSEPH [facility] : 1970 Age/S: 49 / M [address] Unit #: [id number] Loc: [place] [address] Phys: Jay Mayo MD Acct: [id number] Dis Date: Status: ADMIN PHONE #: [phone] Exam Date: 01/10/2020 0607 FAX #: Reason: follow up colonic ileus EXAMS: CPT: [id number] XR ABDOMEN 1 V 92490 Fluoro Time: DAP (Gy m2): Air Kerma [...] Signed Report [facility] [place] [facility] 1970 Age/S: 49 / M [address] Unit #: [id number] Loc: [place] [address] Phys: Jay Mayo Acct: [id number] Dis Date: Status: ADM IN PHONE #: [phone] Exam Date: 01/10/2020 0658 FAX#: Reason: follow up colonic ileus EXAMS: CPT: [id number] XR ABDOMEN 1 V 25655 Fluoro Time: DAP (Gy m2): Air Kerma (mGy): <Continued> Technologist: Bakari De Leon RT(R)(CT) Trnscb Date/Time: 01/10/2020 (731) tDARWINR.CB5 Orig Print D/T: S: 01/10/2020 (0736) PAGE 2 Signed ReportCOMPREHENSIVE METABOLIC [id number] 05:56:00 Test Item Value Reference Range Interpretation [...] TOTAL (test code = ALKP) CBC W/AUTO [id number] 05:42:00 Test Item Value Reference Range Interpretation [...] = NO DIFF/SCN CRITERIA MDIFF) BASIC METABOLIC [id number] 06:59:00 Test Item Value Reference Range Interpretation [...] code = CA) 8.5 MG/DL 8.5-10.1 N [id number] 06:59:00 Test Item Value Reference Range Interpretation Comments MAGNESIUM (test code = MAG) 2.2 MG/DL 1.8-2.4 PROTHROMBIN [id number] 06:39:00 Test Item Value Reference Range Interpretation Comments PT PATIENT (test code = PTP) 13.1 SECONDS 9.3-12.9 H INTERNATIONAL NORMAL RATIO 1.16 INR Unit 0.8-1.2 N (test code = INR) CBC W/AUTO [id number] 06:22:00 Test Item Value Reference Range Interpretation [...] DIFF/SCN CRITERIA MDIFF) - XR ABDOMEN 1 [id number] 05:39:00 Name: DORA JOSEPH [facility] : 1970 Age/S: 49 / M [address] Unit #: [id number] Loc: [place] [address] 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 Acct: [id number] Dis Date: Status: ADM IN PHONE #: [phone] Exam Date: 01/09/2020522 FAX #: Reason: colonic ileus/obstruction EXAMS: CPT: [id number] XR ABDOMEN 1 V 06564 Fluoro Time: DAP (Gy m2): Air Kerma [...] Signed Report Name: DORA JOSEPH [facility] : 1970 Age/S: 49 / M [address] Unit #: [id number] Loc: [place] [address] 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 Acct: [id number] Dis Date: Status: ADM IN PHONE #: [phone] Exam Date: 01/09/2020522 FAX #: Reason: colonic ileus/obstruction EXAMS: CPT: [id number] XR ABDOMEN 1 V 95379 Fluoro Time: DAP (Gy m2): Air Kerma (mGy): <Continued> Technologist: Carrie Barnett, RT(R)(CT) Trnscb Date/Time: 01/09/2020 (05) tKARTIK Orig Print D/T: S: 01/09/2020 (0542) PAGE 2 Signed ReportCoronavirus 2018 nCoV [id number] 22:38:00 Test Item Value Reference Range Interpretation Comments Coronavirus 2019 nCoV Bedside (test Negative Negative code = [id number]) Emergent procedure? YESCoronavirus 2018 nCoV Wxzwzag8264-73-48 22:38:00 Test Item Value Reference Range Interpretation Comments Coronavirus 2019 nCoV Bedside (test Negative Negative code = BHAYT84CMVYB) Emergent procedure? YESBASIC METABOLIC [id number] 18:42:00 Test Item Value Reference Range Interpretation [...] CA) 8.5 MG/DL 8.5-10.1 N CBC W/AUTO [id number] 10:50:00 Test Item Value Reference Range Interpretation [...] = NO DIFF/SCN CRITERIA MDIFF) COMPREHENSIVE METABOLIC [id number] 10:46:00 Test Item Value Reference Range Interpretation [...] 50-136 N TOTAL (test code = ALKP) [id number] 10:46:00 Test Item Value Reference Range Interpretation Comments MAGNESIUM (test code = MAG) 2.6 MG/DL 1.8-2.4 H COMPREHENSIVE METABOLIC [id number] 10:34:00 Test Item Value Reference Range Interpretation [...] TOTAL (test Unit/L 50-136 code = ALKP) [id number] 10:34:00 Test Item Value Reference Range Interpretation Comments MAGNESIUM (test code = MAG) MG/DL 1.8-2.4 - XR ABDOMEN 1 [id number] 08:28:00 Name: DORA JOSEPH [facility] : 1970 Age/S: 49 / M [address] Unit #: [id number] Loc: [place] [address] Phys: Yas Edwards MD Acct: [id number] Dis Date: Status: ADM IN PHONE #: [phone] Exam Date: 01/08/2020509 FAX #: Reason: ileus EXAMS: CPT: [id number] XR ABDOMEN 1 C85676 Fluoro Time: DAP (Gy m2): Air Kerma [...] Signed Report Name: DORA JOSEPH [facility] : 1970 Age/S: 49 / M [address] Unit #: [id number] Loc: [place] [address] [id number] Dis Date: Status: ADM IN PHONE #: [phone] Exam Date: 01/08/2020509 FAX #: Reason: ileus EXAMS: CPT: [id number] XR ABDOMEN 1 V 32353 Fluoro Time: DAP (Gy m2): Air Kerma (mGy): &l t;Continued> Technologist: Carrie Barnett, RT(R)(CT); ... Trnscb Date/Time: 01/08/2020 (827) tJAQUELINE Orig Print D/T: S: 01/08/2020 (830) PAGE 2 Signed ReportCOMPREHENSIVE METABOLIC [id number] 07:08:00 Test Item Value Reference Range Interpretation [...] 50-136 L TOTAL (test code = ALKP) [id number] 07:08:00 Test Item Value Reference Range Interpretation Comments MAGNESIUM (test code = MAG) 1.3 MG/DL 1.8-2.4 L COMPREHENSIVE METABOLIC [id number] 05:16:00 Test Item Value Reference Range Interpretation [...] 50-136 L TOTAL (test code = ALKP) [id number] 05:16:00 Test Item Value Reference Range Interpretation Comments MAGNESIUM (test code = MAG) 1.3 MG/DL 1.8-2.4 L CBC W/AUTO [id number] 05:02:00 Test Item Value Reference Range Interpretation [...] (test code = NO DIFF/SCN CRITERIA MDIFF) [id number] 16:51:00 Test Item Value Reference Range Interpretation Comments MAGNESIUM (test code = MAG) 2.3 MG/DL 1.8-2.4 N FE W/TOTAL IRON BINDING CAP.2020-01-07 16:51:00 Test Item Value Reference Range Interpretation Comments SERUM IRON (test code = IRON) 38 mcG/DL 65-175 L TOTAL IRON BINDING CAPACITY (test 322 mcG/DL 250-450 N code = TIBC) IRON SATURATION (test code = 12 % calc 12-57 N FESAT) [id number] 16:51:00 Test Item Value Reference Range Interpretation Comments FERRITIN (test code = DAVID) 17.6 NG/ML 5.0-323.0 N CALCIUM [id number] 16:50:00 Test Item Value Reference Range Interpretation Comments CALCIUM IONIZED (test code = NAVEED) 1.12 mmol/L 1.12-1.32 N - XR ABDOMEN 1 [id number] 10:29:00 Name: DORA JOSEPH [facility] : 1970 Age/S: 49 / M [address] Unit #: [id number] Loc: [place] [address] Phys: Verona Frost PA-C Acct: [id number] Dis Date: Status: ADM IN PHONE #: [phone] Exam Date: 01/07/2020 0712 FAX #: Reason: reassess SBO EXAMS: CPT: [id number] XR ABDOMEN 1 V 15226 Fluoro Time: DAP (Gy m2): Air Kerma [...] Signed Report Name: DORA JOSEPH [facility] : 1970 Age/S: 49 / M [address] Unit #: [id number] Loc: [place] [address] Phys: Verona Frost PA-C Acct: [id number] Dis Date: Status: ADM IN PHONE #: [phone] Exam Date: 01/07/2020 0712 FAX #: Reason: reassess SBO EXAMS: CPT: [id number] XR ABDOMEN 1 V 02601 Fluoro Time: DAP (Gy m2): Air Kerma (mGy): <Continued> Technologist: Bakari De Leon RT(R)(CT) Trnscb Date/Time: 01/07/2020 (3457) tJUDSONAGV Orig Print D/T: S: 01/07/2020 (6725) PAGE 2 Signed ReportBASIC METABOLIC PANEL 2020-01-07 [...] CA) 5.4 MG/DL 8.5-10.1 LL CBC W/AUTO [id number] 06:49:00 Test Item Value Reference Range Interpretation [...] = NO DIFF/SCN CRITERIA MDIFF) COMPREHENSIVE METABOLIC [id number] 06:10:00 Test Item Value Reference Range Interpretation [...] TOTAL (test code = ALKP) CBC W/AUTO [id number] 05:52:00 Test Item Value Reference Range Interpretation [...] DIFF/SCN CRITERIA MDIFF) - XR ABDOMEN 1 [id number] 01:30:00 Name: DORA JOSPEH [facility] : 1970 Age/S: 49 / M [address] Unit #: [id number] Loc: [place] [address] Phys: Ted Coleman BEHAVIORAL MODIFICATION ASSISTANT Acct: [id number] Dis Date: Status: ADM IN PHONE #: [phone] Exam Date: 01/06/2020 0100 FAX #: Reason: NG Tube Placement Verification EXAMS: CPT: [id number] XR ABDOMEN 1 V 44014 Fluoro Time: DAP (Gy m2): Air Kerma [...] M.D. CC: Mark Perea MD; Ted Coleman BEHAVIORAL MODIFICATION ASSISTANT PAGE 1 Signed Report Name: DORA JOSEPH [facility] : 1970 Age/S: 49 / M [address] [facility] Unit #: [id number] Loc: [place] [address] Phys: Ted Coleman NP Acct: [id number] Dis Date: Status: ADM IN PHONE #: [phone] Exam Date: 01/06/2020 0100 FAX #: Reason:NG Tube Placement Verification EXAMS: CPT: [id number] XR ABDOMEN 1 V 25822 Fluoro Time: DAP (Gy m2): Air Kerma (mGy): <Continued> Technologist: RT Tatum(R) Trnscb Date/Time: 01/06/2020 (129) Herrera Orig Print D/T: S: 01/06/2020 (132) PAGE 2 Signed Report- CT ABD PELVIS W/O [id number] 19:42:00 [place]: St: REG -- Name: DORA JOSEPH [facility] : 1970 Age/S: 49/M [address] [facility] Unit: [id number] Loc: [place], [place] Phys: [place] [address] Acct: [id number] Dis Date: Status: REG ER PHONE #: [phone] Exam Date: 12/13/20191924 FAX #: [phone] Reason: pain EXAMS: CPT CODE: [id number] CT ABD PELVIS W/O CONT 08344 Examination: CT scan abdomen and pelvis without [...] code = CA) 8.6 mg/dl 8.0-10.5 N [id number] 18:49:00 Test Item Value Reference Range Interpretation Comments LIPASE (test code = LIP) 97 Units/L 65.0-230.0 N CBC W/AUTO [id number] 18:38:00 Test Item Value Reference Range Interpretation [...] K/mm3 0.0-0.2 N - XR CHEST 1 [id number] 18:36:00 [place]: St: PRE -- Name: OPALDORA [facility] : 1970 Age/S: 49/M [address] [facility] Unit #: [id number] [place]: [place]: [place] [address] Acct: [id number] Dis Date: Status: PRE ER PHONE #: [phone] Exam Date: 12/13/2019 182 FAX #: [phone] Reason: SOB EXAMS: CPT CODE: [id number] XR CHEST 1 V 69301 Examination: One view chest x-ray Location code: [...] : By: GarettVR5 PAGE 1 Signed Report [place]: St: PRE ----- Name: OPALDORA MARIA ISABEL [facility] : 1970 Age/S: 49/M [address] [facility] Unit #: [id number] Loc: [place], [place]: [place] [address] Acct: [id number] Dis Date: Status: PRE ER PHONE #: [phone] Exam Date: 12/13/20191821 FAX #: [phone] Reason: SOB EXAMS: CPT CODE: [id number] XR CHEST 1 V 50698 (Continued) Orig Print D/T: S: 12/13/2019 (1838) [...] Received comment: User comments: Slide comments:BASIC METABOLIC [id number] 07:34:00 Test Item Value Reference Range Interpretation [...] S NOT APPLICABLE FOR DIALYSIS PATIEN TS. [id number] 07:26:00 Test Item Value Reference Range Interpretation Comments PHOSPHORUS (BEAKER) (test code = 3.1 mg/dL 2.3-4.7 604) [id number] 07:26:00 Test Item Value Reference Range Interpretation Comments MAGNESIUM (BEAKER) (test code = 1.6 mg/dL 1.6-2.6 627) RAD, ABDOMEN/KUB, 1 VIEW [id number] 07:04:00Reason for exam:->ileusFINAL REPORT Abdomen , one [...] MDReport Verified Date/Time: 04/03/2019 07:04:46 Reading Location: [facility] C013X Ortho Consult Reading Room BASIC METABOLIC [id number] 06:47:00 Test Item Value Reference Range Interpretation [...] code = 413) URINALYSIS WITH MICROSCOPIC IF [id number] 22:01:00 Test Item Value Reference Range Interpretation [...] 463) SOURCE(BEAKER) (test code = 2795) URINALYSIS [id number] 22:01:00 Test Item Value Reference Range Interpretation Comments RBC UA (BEAKER) (test code = 519) 18 /HPF WBC UA (BEAKER) (test code = 520) 1 /HPF CALCIUM OXALATE CRYSTALS (BEAKER) Occasional (test code = 518) [id number] 05:49:00 Test Item Value Reference Range Interpretation Comments PHOSPHORUS (BEAKER) (test code = 2.5 mg/dL 2.3-4.7 604) [id number] 05:49:00 Test Item Value Reference Range Interpretation Comments MAGNESIUM (BEAKER) (test code = 1.7 mg/dL 1.6-2.6 627) BASIC METABOLIC [id number] 05:49:00 Test Item Value Reference Range Interpretation [...] (BEAKER) (test code = 413) BASIC METABOLIC [id number] 06:19:00 Test Item Value Reference Range Interpretation [...] S NOT APPLICABLE FOR DIALYSIS PATIEN TS. [id number] 06:10:00 Test Item Value Reference Range Interpretation Comments MAGNESIUM (BEAKER) 1.8 mg/dL 1.6-2.6 Specimen slightly (test code = 627) hemolyzed [id number] 06:10:00 Test Item Value Reference Range Interpretation [...] (BEAKER) (test code = 413) BASIC METABOLIC [id number] 04:57:00 Test Item Value Reference Range Interpretation [...] S NOT APPLICABLE FOR DIALYSIS PATIEN TS. [id number] 04:55:00 Test Item Value Reference Range Interpretation Comments PHOSPHORUS (BEAKER) (test code = 2.6 mg/dL 2.3-4.7 604) [id number] 04:55:00 Test Item Value Reference Range Interpretation Comments MAGNESIUM (BEAKER) (test code = 1.8 mg/dL 1.6-2.6 627) CT, [id number] 14:16:00FINAL REPORT TECHNIQUE: CT of the abdomen [...] MDReport Verified Date/Time: 03/29/2019 14:16:01 Reading Location: [facility] C013Y CT Body Reading Room , ABDOMEN/KUB, 1 VIEW [id number] 10:23:00Reason for exam:->evaluate ileusFINAL REPORT Technique: Supine [...] MDReport Verified Date/Time: 03/29/2019 10:23:29 Reading Location: [facility] Reading Room [facility] (HEMOGRAM ONLY)2019-03-29 08:10:00 Test Item [...] WBC 0-0 (BEAKER) (test code = 413) [id number] 06:20:00 Test Item Value Reference Range Interpretation Comments PHOSPHORUS (BEAKER) (test code = 2.6 mg/dL 2.3-4.7 604) [id number] 06:20:00 Test Item Value Reference Range Interpretation Comments MAGNESIUM (BEAKER) (test code = 2.0 mg/dL 1.6-2.6 627) BASIC METABOLIC [id number] 06:20:00 Test Item Value Reference Range Interpretation [...] TS. RAD, ABDOMEN SERIES W/ UPRIGHT PA [id number] 22:18:00Reason for exam:- >eval ileusFINAL REPORT CLINICAL [...] evaluation with CT abdomen pelvis. Signed: Mari Betheaeport Verified Date/Time: 03/28/2019 22:18:50 RAD, ABDOMEN/KUB, 1 VIEW [id number] 11:23:00Reason for exam:->abdominal distensionShould this be performed [...] transition point is identified. Signed: Wendi Cruz MDRepariel Verified Date/Time: 03/28/2019 11:23:34 Reading Location: [facility] Radiology Reading Room TISSUE [id number] 09:00:00Surgical Pathology Report Case: [id number] Authorizing Provider: Graciela Garrison MD Collected: 03/25/2019 1133 Ordering Location: [facility] Received: 03/25/2019 1527 SERVICES Pathologist: Jordan [...] NEGATIVEFOR MALIGNANCY Signing Pathologist Direct Phone Line: [phone] signed by Jordan Celaya MD on 03/28/2019 at 9:00 [id number] and postop diagnosis: ileostomy statusA. End ileostomy; [...] nodes are not identified in the mesentery. Hog Feeder sections are submitted. Section code: A, account services representative section of each end of first mentioned segment of small bowel; A2, account services representative of first mentioned segment of small bowel mucosa; A3, area of hemorrhagic mesentery of second mentioned segment of mucosa; A4, account services representative of hemorrhagic mucosa at open end of second portion of small bowel; A5, account services representative of stapled margin from second mentioned segment of small bowel, en face. B. Received fresh labeled with the patient's name, accraudel jcarlos number and "appendix" is an intact appendix measuring 3.5 cm in length and 0.6 cm in diameter which has a moderate amount of attached mesoappendix. The serosa is pink and smooth. The proximal end is cauterized. The specimen is serially sectioned to reveal a baad, smooth mucosa. No fecaliths are present. The wall thickness is 0.2 cm. No gross lesions are identified. Hog Feeder sections are submitted. Section code: B1, proximal margin en face and tip; B2, account services representative cross section. CG/pl Performed.[id number] 06:23:00 Test Item Value Reference Range Interpretation Comments PHOSPHORUS (BEAKER) (test code = 2.7 mg/dL 2.3-4.7 604) [id number] 06:23:00 Test Item Value Reference Range Interpretation Comments MAGNESIUM (BEAKER) (test code = 1.9 mg/dL 1.6-2.6 627) BASIC METABOLIC [id number] 06:23:00 Test Item Value Reference Range Interpretation [...] S NOT APPLICABLE FOR DIALYSIS PATIEN TS. [id number] 08:20:00 Test Item Value Reference Range Interpretation Comments PHOSPHORUS (BEAKER) (test code = 2.6 mg/dL 2.3-4.7 604) [id number] 08:20:00 Test Item Value Reference Range Interpretation Comments MAGNESIUM (BEAKER) (test code = 1.8 mg/dL 1.6-2.6 627) BASIC METABOLIC [id number] 08:20:00 Test Item Value Reference Range Interpretation [...] S NOT APPLICABLE FOR DIALYSIS PATIEN TS. [id number] 06:06:00 Test Item Value Reference Range Interpretation Comments PHOSPHORUS (BEAKER) (test code = 4.1 mg/dL 2.3-4.7 604) [id number] 06:06:00 Test Item Value Reference Range Interpretation Comments MAGNESIUM (BEAKER) (test code = 1.8 mg/dL 1.6-2.6 627) BASIC METABOLIC [id number] 06:06:00 Test Item Value Reference Range Interpretation [...] S NOT APPLICABLE FOR DIALYSIS PATIEN TS. [id number] 06:03:00 Test Item Value Reference Range Interpretation Comments PHOSPHORUS (BEAKER) (test code = 4.2 mg/dL 2.3-4.7 604) [id number] 06:03:00 Test Item Value Reference Range Interpretation Comments MAGNESIUM (BEAKER) (test code = 2.0 mg/dL 1.6-2.6 627) BASIC METABOLIC [id number] 06:03:00 Test Item Value Reference Range Interpretation [...] WBC 0-0 (BEAKER) (test code = 413) [id number] 05:52:00 Test Item Value Reference Range Interpretation Comments PHOSPHORUS (BEAKER) (test code = 4.2 mg/dL 2.3-4.7 604) [id number] 05:52:00 Test Item Value Reference Range Interpretation Comments MAGNESIUM (BEAKER) (test code = 1.9 mg/dL 1.6-2.6 627) BASIC METABOLIC [id number] 05:52:00 Test Item Value Reference Range Interpretation [...] S NOT APPLICABLE FOR DIALYSIS PATIEN TS. [id number] 06:51:00 Test Item Value Reference Range Interpretation Comments PHOSPHORUS (BEAKER) (test code = 4.3 mg/dL 2.3-4.7 604) [id number] 06:51:00 Test Item Value Reference Range Interpretation Comments MAGNESIUM (BEAKER) (test code = 2.0 mg/dL 1.6-2.6 627) BASIC METABOLIC [id number] 06:51:00 Test Item Value Reference Range Interpretation [...] 0-0 (BEAKER) (test code = 413) TISSUE [id number] 11:50:00Surgical Pathology Report Case: [id number] Authorizing Provider: Meal Larson MD Collected: 03/18/2019 1827 Ordering Location: [facility] Received: 03/21/2019 0823 SERVICES Pathologist: Jordan Celaya MD Specimen: Small Bowel, NOS A. SMALL BOWEL, ILEOSTOMY PROLAPSE, TAKEDOWN:- ANASTOMOSIS SITE WITH ACTIVE CHRONIC INFLAMMATION AND FOCAL ISCHEMIC CHANGES - MUCOSAL RESECTION MARGINS, NEGATIVE FOR MALIGNANCY - ONE BENIGN LYMPH NODE (0/1) - NEGATIVE FOR DYSPLASIA OR MALIGNANCY Signing Pathologist Direct Phone Line: [phone] signed by Jordan Celaya MD on 03/22/2019 at 11:50 [id number] of ileostomyReceived in a container labeled "small [...] 0.5 to 1.2 cm in greatest dimension. Hog Feeder sections are submitted as follows: A1-A2, mucosal resection margin, en face; A3-A6, account services representative sections of the possible ostomy stump; A7-A11, serial account services representative sections from mucosal resec tion margin to the possible ostomy stump; A12, two lymph nodes. TH/plPerformed. [id number] 06:58:00 Test Item Value Reference Range Interpretation Comments PHOSPHORUS (BEAKER) (test code = 3.8 mg/dL 2.3-4.7 604) [id number] 06:58:00 Test Item Value Reference Range Interpretation Comments MAGNESIUM (BEAKER) (test code = 2.0 mg/dL 1.6-2.6 627) BASIC METABOLIC [id number] 06:58:00 Test Item Value Reference Range Interpretation [...] PATIEN TS. CBC W/PLT COUNT & AUTO [id number] 05:42:00 Test Item Value Reference Range Interpretation [...] PERCENT (BEAKER) (test code = 2801) [place], [id number] 17:42:00Reason for exam:->evaluate for colon stricture as [...] Lopez Verified Date/Time: 03/21/2019 17:42:21 Reading Location: [address] Reading Room [id number] 03:58:00 Test Item Value Reference Range Interpretation Comments PHOSPHORUS (BEAKER) (test code = 3.0 mg/dL 2.3-4.7 604) [id number] 03:58:00 Test Item Value Reference Range Interpretation Comments MAGNESIUM (BEAKER) (test code = 2.0 mg/dL 1.6-2.6 627) BASIC METABOLIC [id number] 03:58:00 Test Item Value Reference Range Interpretation [...] PATIEN TS. CBC W/PLT COUNT & AUTO [id number] 03:20:00 Test Item Value Reference Range Interpretation [...] (BEAKER) (test code = 2801) BASIC METABOLIC [id number] 06:26:00 Test Item Value Reference Range Interpretation [...] S NOT APPLICABLE FOR DIALYSIS PATIEN TS. [id number] 06:05:00 Test Item Value Reference Range Interpretation Comments PHOSPHORUS (BEAKER) (test code = 2.2 mg/dL 2.3-4.7 L 604) [id number] 06:05:00 Test Item Value Reference Range Interpretation Comments MAGNESIUM (BEAKER) (test code = 2.0 mg/dL 1.6-2.6 627) CBC W/PLT COUNT & AUTO [id number] 05:25:00 Test Item Value Reference Range Interpretation [...] 0-1 PERCENT (BEAKER) (test code = 2801) [id number] 04:31:00 Test Item Value Reference Range Interpretation Comments PHOSPHORUS (BEAKER) (test code = 3.7 mg/dL 2.3-4.7 604) [id number] 04:31:00 Test Item Value Reference Range Interpretation Comments MAGNESIUM (BEAKER) (test code = 1.9 mg/dL 1.6-2.6 627) BASIC METABOLIC [id number] 04:31:00 Test Item Value Reference Range Interpretation [...] PATIEN TS. CBC W/PLT COUNT & AUTO [id number] 04:15:00 Test Item Value Reference Range Interpretation [...] 0-1 PERCENT (BEAKER) (test code = 2801) [id number] 06:41:00 Test Item Value Reference Range Interpretation Comments PHOSPHORUS (BEAKER) (test code = 3.1 mg/dL 2.3-4.7 604) [id number] 06:41:00 Test Item Value Reference Range Interpretation Comments MAGNESIUM (BEAKER) (test code = 1.9 mg/dL 1.6-2.6 627) BASIC METABOLIC [id number] 06:41:00 Test Item Value Reference Range Interpretation [...] PATIEN TS. CBC W/PLT COUNT & AUTO [id number] 06:36:00 Test Item Value Reference Range Interpretation [...] PERCENT (BEAKER) (test code = 2801) CT, [id number] 17:04:00No PO contrastFINAL REPORT ABDOMINAL AND PELVIS [...] Verified Date/Time: 03/17/2019 17:04:19 Reading Location: [facility] B1 C013Y CT Body Reading Room XR ABDOMEN 2 [id number] 09:03:45XR ABDOMEN 2 VIEWSLOCATION: [id number]: Colstomy ProlapseCOMPARISON: Chest radiograph 04/15/2017, CT of [...] Nonspecific, nonobstructive bowel gas pattern.XR CHEST 1 [id number] 11:32:15 EXAM: CHEST ONE VIEWINDICATION: Chest painCOMPARISON: None availableTECHNIQUE: AP view of the chest.FINDINGS: The cardiomediastinal silhouette is normal. The lungs are clearbilaterally. No pneumothoraxor pleural effusion is identified. Theosseous structures are unremarkable.IMPRESSION: No acute cardiopulmonary process.LOCATION: T28Oerfn Type and [id number] 21:21:00 Test Item Value Reference Range Interpretation Comments ABO type (test code = ABO) O Rh Type (test code = RH) Positive Comprehensive Metabolic [id number] 20:36:00 Test Item Value Reference Range Interpretation [...] the National Kidney Foundation,http ://nkd ep.nih.gov Alcohol/Ethanol, [id number] 20:36:00 Test Item Value Reference Range Interpretation Comments Alcohol, Ethyl <0.01 g/dL 0.00-0.01 N Intoxicated 0 .080 g/dL (test code = ETOH) or more Prothrombin [id number] 20:00:00 Test Item Value Reference Range Interpretation Comments PT (test code = PT) 10.10 seconds 9.78-13.35 N INR (test code = INR) 0.88 Ratio 0.6-1.2 N Partial Thromboplastin [id number] 20:00:00 Test Item Value Reference Range Interpretation Comments aPTT (test code = PTT) 31.50 seconds 24.39-37.25 N CBC with [id number] 19:50:00 Test Item Value Reference Range Interpretation [...] code = ALYMPH) 2.2 K/cumm 0.5-4.6 N [place] Abs (test code = AMONO) 0.4 K/cumm 0.0-1.2 N Eos Abs (test code = AEOS) 0.17 K/cumm 0.00-0.74 N Baso Abs (test code = ABASO) 0.0 K/cumm 0.00-0.21 N 60308& PELVIS W/O [id number] 17:36:28CT ABDOMEN AND PELVIS WITHOUT CONTRAST.CLINICAL HISTORY: [...]
[2022-09-09] MEDS ORDERED: NA CHLORIDE 0.9% 1,000 ML ONE (11:57)
[2022-09-09 12:44] LABS: Absolute Lymphocytes (CBC) 1.3 K/uL (0.7-4.9); Hematocrit 37.2 % (39.6-49.0); Lymphocytes % 13.6 % (15.3-44.8); MCV 87.8 fL (80-100); MPV 6.6 fL (7.6-11.3); RBC Red Blood Cell Count 4.24 M/uL (4.33-5.43)
[2022-09-09 13:06] LABS: Albumin 3.4 g/dL (3.4-5.0); Bilirubin Total 0.3 mg/dL (0.2-1.0); Magnesium 1.8 mg/dL (1.6-2.4); Potassium 3.8 mmol/L (3.5-5.1); Protein, Total 7.9 g/dL (6.4-8.2); Troponin High Sensitivity 4.8 pg/mL (<58.9)
--- NOTE | 2022-09-09 14:02 | ER ---
Nurse's Notes [facility] Name: Rico Mcneill Age: 52 yrs Sex: Male : 1970 Arrival Date: 09/09/2022 Time: 11:42 Bed 5 Private MD: Diagnosis: Hypo-osmolality and hyponatremia;Acute kidney failure, unspecified Presentation: 09/09 11:48 Chief complaint: EMS states: Toned out to [facility] in [place] for patient with kr3 dizziness and SOB. Coronavirus screen: Vaccine status: Patient reports being unvaccinated. Client denies travel out of the [place] in the last 14 days. Ebola Screen: Patient denies travel to an Ebola-affected area in the 21 days before illness onset. Initial Sepsis Screen: Does the patient meet any 2 criteria? No. Patient's initial sepsis screen is negative. Does the patient have a suspected source of infection? No. Patient's initial sepsis screen is negative. Risk Assessment: Do you want to hurt yourself or someone else? Patient reports no desire to harm self or others. Onset of symptoms was September 09, 2022. 11:48 Method Of Arrival: EMS: [place] [facility] kr3 11:48 Acuity: OCTAVIO 3 kr3 Triage Assessment: 11:52 General: Appears in no apparent distress. comfortable, Behavior is calm, cooperative, kr3 appropriate for age. Pain: Denies pain. Historical: - Allergies: 11:50 NKDA; kr3 - PMHx: 11:50 ileostomy; kr3 - PSHx: 11:50 Small bowel resection with ileostomy; kr3 - Immunization history:: Adult Immunizations not up to date. - Social history:: Smoking status: Patient reports use of chewing tobacco. - Family history:: not pertinent. Screenin:[facility] ED Fall Risk Assessment (Adult) History of falling in the last 3 months, kr3 including since admission No falls in past 3 months (0 pts) Confusion or Disorientation No (0 pts) Intoxicated or Sedated No (0 pts) Impaired Gait No (0 pts) Mobility Assist Device Used No (0 pt) Altered Elimination No (0 pt) Score/Fall Risk Level 0 - 2 = Low Risk. Abuse screen: Denies threats or abuse. Nutritional screening: No deficits noted. Tuberculosis screening: No symptoms or risk factors identified. Assessment: 12:50 Reassessment: Patient appears in no apparent distress at this time. Patient and/or kr3 family updated on plan of care and expected duration. Pain level reassessed. Patient is alert, oriented x 3, equal unlabored respirations, skin warm/dry/pink. 13:50 Reassessment: Patient appears in no apparent distress at this time. Patient and/or kr3 family updated on plan of care and expected duration. Pain level reassessed. Patient is alert, oriented x 3, equal unlabored respirations, skin warm/dry/pink. 14:50 Reassessment: Patient appears in no apparent distress at this time. Patient and/or kr3 family updated on plan of care and expected duration. Pain level reassessed. Patient is alert, oriented x 3, equal unlabored respirations, skin warm/dry/pink. 16:00 Reassessment: Patient appears in no apparent distress at this time. Patient and/or kr3 family updated on plan of care and expected duration. Pain level reassessed. Patient is alert, oriented x 3, equal unlabored respirations, skin warm/dry/pink. 17:00 Reassessment: Patient appears in no apparent distress at this time. Patient and/or kr3 family updated on plan of care and expected duration. Pain level reassessed. Patient is alert, oriented x 3, equal unlabored respirations, skin warm/dry/pink. 17:20 Reassessment: Patient appears in no apparent distress at this time. Patient and/or ld1 family updated on plan of care and expected duration. Pain level reassessed. Patient denies pain at this time. Vital Signs: 11:48 BP 117 / 80; Pulse 100; Resp 20; Temp 98.4; Pulse Ox 100% ; Height 6 ft. 1 in. (185.42 kr3 cm); Pain 0/10; 11:53 Weight 68.04 kg; kr3 16:15 BP 101 / 64; Pulse 100; Resp 18; Pulse Ox 99% on R/A; kr3 17:15 BP 98 / 63; Pulse 92; Resp 18; Pulse Ox 98% on R/A; kr3 17:20 BP 96 / 63; Pulse 89; Resp 18; Temp 98.6(O); Pulse Ox 100% on R/A; Pain 0/10; ld1 11:53 Body Mass Index 19.79 (68.04 kg, 185.42 cm) kr3 ED Course: 11:42 Patient arrived in ED. ld1 11:44 Clifton Ventura MD is Attending Physician. rt 11:48 Leighann Pelaez RN is Primary Nurse. kr3 11:50 Triage completed. kr3 11:52 Arm band placed on right wrist. Patient placed in an exam room, on a stretcher. kr3 11:52 Bed in low position. Call light in reach. Side rails up X 1. kr3 12:27 EKG done, by ED staff. bc6 12:41 Missed attempt(s): 20 gauge in left forearm. kr3 14:01 Juan Alberto Pepper MD is Hospitalizing Provider. rt 17:21 No provider procedures requiring assistance completed. ld1 17:21 Patient admitted, IV remains in place. ld1 17:34 Inserted saline lock: 22 gauge in right hand, using aseptic technique. Blood collected. kr3 17:42 Report given to Ana Laura Guadarrama RN. kr3 17:44 Stool Culture Sent. kr3 Administered Medications: 12:32 Drug: NS 0.9% 1000 ml Route: IV; Rate: 1 bolus; Site: right hand; kr3 15:59 Follow up: IV Status: Completed infusion kr3 15:59 Follow up: Response: No adverse reaction; IV Status: Completed infusion; IV Intake: kr3 1000ml Medication: 17:22 VIS not applicable for this client. kr3 Intake: 15:59 IV: 1000ml; Total: 1000ml. kr3 Outcome: 14:02 Decision to Hospitalize by Provider. rt 17:21 Admitted to Med/surg accompanied by [facility], room 411. ld1 17:21 Condition: stable 17:21 Instructed on the need for admit. 17:56 Patient left the ED. kr3 Signatures: Rosaura Lilly RN RN ld1 Leighann Pelaez, BRITTNY RN kr3 Clifton Ventura MD MD rt Jessy Peoples [facility]
--- NOTE | 2022-09-09 14:02 | EDPHYS ---
Physician Documentation [facility] Name: Rico Mcneill Age: 52 yrs Sex: Male : 1970 Arrival Date: 09/09/2022 Time: 11:42 Bed 5 Private MD: ED Physician Clifton Ventura HPI: 09/09 12:30 This 52 yrs old Male presents to ER via EMS with complaints of Near syncope. rt 12:30 The patient has experienced near-syncope. Onset: The symptoms/episode began/occurred 1 rt hour(s) ago. Duration: This was a single episode. Associated signs and symptoms: Pertinent positives: diaphoresis, lightheadedness, nausea. Patient presents to the ED with near syncope. Patient was recently seen in the ED, admitted for acute kidney injury, hypomagnesemia, near syncope. The patient has a colostomy, reports a large amount of liquid stool from the ostomy. The patient states that he felt diaphoretic, near syncopal with nausea earlier, he states the symptoms have improved, still somewhat dizzy. The patient denies chest pain, other acute complaints. Symptoms are moderate in severity, no other aggravating or alleviating factors.. Historical: - Allergies: 11:50 NKDA; kr3 - PMHx: 11:50 ileostomy; kr3 - PSHx: 11:50 Small bowel resection with ileostomy; kr3 - Immunization history:: Adult Immunizations not up to date. - Social history:: Smoking status: Patient reports use of chewing tobacco. - Family history:: not pertinent. ROS: 12:30 Constitutional: Negative for fever, chills, and weight loss, Eyes: Negative for injury, rt pain, redness, and discharge, Cardiovascular: Negative for chest pain, palpitations, and edema, Respiratory: Negative for shortness of breath, cough, wheezing, and pleuritic chest pain, MS/Extremity: Negative for injury and deformity, Skin: Negative for injury, rash, and discoloration, Psych: Negative for depression, anxiety, suicide ideation, homicidal ideation, and hallucinations. 12:30 Abdomen/GI: Positive for nausea and vomiting, diarrhea. 12:30 Neuro: Positive for near syncope, Negative for altered mental status. Exam: 12:30 Constitutional: This is a well developed, well nourished patient who is awake, alert, rt and in no acute distress. Head/Face: Normocephalic, atraumatic. Chest/axilla: Normal chest wall appearance and motion. Nontender with no deformity. No lesions are appreciated. Cardiovascular: Regular rate and rhythm with a normal S1 and S2. No gallops, murmurs, or rubs. Normal PMI, no JVD. No pulse deficits. Respiratory: Lungs have equal breath sounds bilaterally, clear to auscultation and percussion. No rales, rhonchi or wheezes noted. No increased work of breathing, no retractions or nasal flaring. Skin: Warm, dry with normal turgor. Normal color with no rashes, no lesions, and no evidence of cellulitis. MS/ Extremity: Pulses equal, no cyanosis. Neurovascular intact. Full, normal range of motion. Neuro: Awake and alert, GCS 15, oriented to person, place, time, and situation. Cranial nerves II-XII grossly intact. Motor strength 5/5 in all extremities. Sensory grossly intact. Cerebellar exam normal. Normal gait. Psych: Awake, alert, with orientation to person, place and time. Behavior, mood, and affect are within normal limits. 12:30 Abdomen/GI: Ostomy present to the right lower quadrant with prolapse, the mucosa appears to be pink, prolapse is chronic and unchanged per patient. No other abdominal tenderness, distention.. 12:30 ECG was reviewed by the Attending Physician. rt Vital Signs: 11:48 BP 117 / 80; Pulse 100; Resp 20; Temp 98.4; Pulse Ox 100% ; Height 6 ft. 1 in. (185.42 kr3 cm); Pain 0/10; 11:53 Weight 68.04 kg; kr3 16:15 BP 101 / 64; Pulse 100; Resp 18; Pulse Ox 99% on R/A; kr3 17:15 BP 98 / 63; Pulse 92; Resp 18; Pulse Ox 98% on R/A; kr3 17:20 BP 96 / 63; Pulse 89; Resp 18; Temp 98.6(O); Pulse Ox 100% on R/A; Pain 0/10; ld1 11:53 Body Mass Index 19.79 (68.04 kg, 185.42 cm) kr3 MDM: 11:44 Patient medically screened. rt 14:02 Differential Diagnosis: Diarrhea, hypomagnesemia, hyponatremia, intravascular volume rt depletion.. Data reviewed: vital signs, nurses notes, old medical records, lab test result(s), EKG, radiologic studies. Consideration of Admission/Observation Patient was admitted/placed on observation. Management of patient was discussed with the following: Hospitalist: Agrees to admit the patient. I considered the following discharge prescriptions or medication management in the emergency department Medications were administered in the Emergency Department. See MAR. Test considered but Not performed: Other Details Benign abdominal examination, recent imaging, unchanged pain, CT scan not indicated.. External Records Reviewed: Inpatient record: Reviewed labs, imaging, hospital course from recent hospitalization. Care significantly affected by the following chronic conditions: Colostomy placement. Response to treatment: the patient's symptoms have mildly improved after treatment. 09/09 11:51 Order name: CBC with Diff; Complete Time: 13:07 rt 09/09 11:51 Order name: CMP; Complete Time: 13:07 rt 09/09 11:51 Order name: Troponin High Sensitivity; Complete Time: 13:07 rt 09/09 11:51 Order name: Magnesium; Complete Time: 13:07 rt 09/09 14:10 Order name: SARS RAPID; Complete Time: 14:59 jl7 09/09 16:09 Order name: Fecal Leukocyte Stain ED[facility] 09/09 16:09 Order name: Ova and Parasites ED[facility] 09/09 16:10 Order name: Stool Culture [facility] 09/09 16:13 Order name: Creatine Phosphokinase [facility] 09/09 16:13 Order name: Magnesium [facility] 09/09 16:13 Order name: NT PRO-BNP [facility] 09/09 16:13 Order name: Phosphorus [facility] 09/09 16:13 Order name: T4 Free [facility] 09/09 16:13 Order name: Thyroid Stimulating Hormone ED[facility] 09/09 11:51 Order name: EKG; Complete Time: 11:51 rt 09/09 11:51 Order name: EKG - Nurse/Tech; Complete Time: 12:25 rt 09/09 16:13 Order name: Regular ED[facility] 09/09 16:13 Order name: Urinalysis [facility] 09/09 16:13 Order name: Basic Metabolic Panel [facility] 09/09 16:13 Order name: Basic Metabolic Panel [facility] 09/09 16:13 Order name: CBC with Automated Diff ED[facility] 09/09 16:13 Order name: CBC with Automated Diff EDMS EC:30 Rate is 94 beats/min. Rhythm is regular, Normal Sinus Rhythm with No ectopy. QRS Leary rt is Normal. KS interval is normal. QRS interval is normal. QT interval is normal. No Q waves. T waves are Normal. No ST changes noted. Clinical impression: Normal ECG. Interpreted by me. Administered Medications: 12:32 Drug: NS 0.9% 1000 ml Route: IV; Rate: 1 bolus; Site: right hand; kr3 15:59 Follow up: IV Status: Completed infusion kr3 15:59 Follow up: Response: No adverse reaction; IV Status: Completed infusion; IV Intake: kr3 1000ml Disposition Summary: 09/09/22 14:02 Hospitalization Ordered Hospitalization Status: Inpatient Admission rt Provider: Juan Alberto Pepper rt [facility] rt Condition: Stable rt Problem: an ongoing problem rt Symptoms: are unchanged rt Bed/Room Type: Standard rt Room Assignment: 411(09/09/22 17:13) dw Diagnosis - Hypo-osmolality and hyponatremia rt - Acute kidney failure, unspecified rt Forms: - Medication Reconciliation Form rt - SBAR form rt Critical care time excluding procedures: 14:02 Critical care time: Bedside Care: 30 minutes, Consultation: 5 minutes. Total time: 35 rt minutes Signatures: Dispatcher [employer] Clemencia Almonte RN RN Leighann Schneider RN RN kr3 Clifton Ventura MD MD rt Corrections: (The following items were deleted from the chart) 17:13 14:02 rt dw
[2022-09-09 14:48] LABS: SARS-CoV-2 Antigen Rapid Res Negative (Negative)
--- NOTE | 2022-09-09 15:02 | EKG ---
Test Date: 2022-09-09 Test Time: 12:20:02 Environmental Emergencies Assistant: MINERVA MEASUREMENT RESULTS: Intervals: Rate: 94 CT: 130 QRSD: 90 QT: 328 QTc: 410 [place]: P: 73 CT: 130 QRS: 69 T: 74 INTERPRETIVE STATEMENTS: Normal sinus rhythm Normal ECG Compared to ECG 07/24/2022 13:56:02 Atrial premature complex(es) no longer present ST (T wave) deviation no longer present Electronically Signed On 09-09-22 15:02:12 [employer]OOK by Rivera Ascencio
[2022-09-09] MEDS ORDERED: ONDANSETRON 4 MG/2 ML VIAL IV PRN (16:09)
--- NOTE | 2022-09-09 16:18 | P.HP ---
Certification for Inpatient Patient admitted to: Inpatient With expected LOS: >2 Midnights Patient will require the following post-hospital care: None Practitioner: I am a practitioner with admitting privileges, knowledge of patient current condition, hospital course, and medical plan of care. Services: Services provided to patient in accordance with Admission requirements found in Title 42 Section 412.3 of the Code of Federal Regulations <RigocandeJalil gordonvianey Gordon - Last Filed: 09/09/22 19:08> Patient History Date of Service: 09/09/22 Reason for admission: Near syncope History of Present Illness: Patient is a 52-year-old male with a past medical history significant for small bowel resection with ileostomy who presents with complaint of dizziness and near syncope onset yesterday. Patient reported associated signs and symptoms of nausea, lightheadedness and diaphoresis. Patient reported frequent watery stools from his ostomy bag. Patient denies any other signs or symptoms. Symptoms are aggravated or relieved by nothing. Patient decided to present to the hospital for medical evaluation. - Past Medical/Surgical History Diabetic: No -: Hypothyroidism -: Bipolar Disorder -: HTN -: bowel obstruction -: Colectomy -: Ileostomy Psychosocial/ Personal History: Patient is homeless. - Family History Father -: Cancer Mother -: Heart disease - Social History Smoking Status: Unknown if ever smoked Alcohol use: No CD- Drugs: No Caffeine use: Yes Place of Residence: Homeless <Stefano Banks - Last Filed: 09/09/22 19:08> Date of Service: 09/09/22 <Juan Alberto Pepper - Last Filed: 09/09/22 19:26> Allergies No Known Drug Allergies Allergy (Verified 09/04/22 02:36) Unknown Home Medications: Diphenox/Atropine [Lomotil] 1 tab PO TIDP PRN #30 tab 09/06/22 Midodrine HCl [Proamatine*] 5 mg PO TID #30 tab 09/06/22 Review of Systems General: Sweats Eyes: Unremarkable ENT: Unremarkable Respiratory: Unremarkable Cardiovascular: Light Headedness Gastrointestinal: Nausea Genitourinary: Unremarkable Musculoskeletal: Unremarkable Integumentary: Other (Ostomy) Neurological: Other (Dizziness, near syncope) Lymphatics: Unremarkable <Stefano Banks - Last Filed: 09/09/22 19:08> Physical Examination - Physical Exam General: Alert, In no apparent distress, Oriented x3, Cooperative HEENT: Atraumatic, PERRLA, Mucous membr. moist/pink, EOMI, Sclerae nonicteric Neck: Supple, 2+ carotid pulse no bruit, No LAD, Without JVD or thyroid abnormality Respiratory: Clear to auscultation bilaterally, Normal air movement Cardiovascular: No edema, Regular rate/rhythm, Normal S1 S2 Capillary refill: <2 Seconds Gastrointestinal: Tenderness Musculoskeletal: No clubbing, No swelling, No contractures, No tenderness Integumentary: No rashes, No breakdown, Other (Ostomy in abd ) Neurological: Normal gait, Normal speech, Normal tone, Normal affect Lymphatics: No axilla or inguinal lymphadenopathy - Studies Laboratory Data (last 24 hrs) 09/09/22 12:38: Sodium 128 L, Potassium 3.8, BUN 22 H, Creatinine 2.03 H, Glucose 105, Magnesium 1.8, Total Bilirubin 0.3, AST 18, ALT 38, Alkaline Phosphatase 75 09/09/22 12:38: WBC 9.80, Hgb 12.4 L, Hct 37.2 L, Plt Count 427 H <Stefano Banks - Last Filed: 09/09/22 19:08> - Studies Laboratory Data (last 24 hrs) 09/09/22 12:38: Sodium 128 L, Potassium 3.8, BUN 22 H, Creatinine 2.03 H, Glucose 105, Magnesium 1.8, Total Bilirubin 0.3, AST 18, ALT 38, Alkaline Alexander sphatase 75 09/09/22 12:38: WBC 9.80, Hgb 12.4 L, Hct 37.2 L, Plt Count 427 H <Juan Alberto Pepper - Last Filed: 09/09/22 19:26> Assessment and Plan - Plan -- ALMA. Nephrology consulted. Continue IV hydration. We will await further recommendations. --Near syncope. Likely secondary to volume depletion. Continue IV hydration. Fall precautions. --History of small bowel resection with ileostomy. Patient able to change ostomy bag. Continue supportive care. --Diarrhea. Stool studies pending to rule out any infectious process. Continue supportive care. --Nausea. Antiemetics on board. Continue supportive care. --Hyponatremia. Nephrology on board. Further management per imager. --Anemia of chronic disease. H&H stable. We will continue to monitor hemoglobin and transfuse if less than 7.0. --Hypothyroidism. Continue home medication when available. --Hypertension. Patient currently hypotensive. We will hold off on BP meds. --Bipolar disorder. Continue home medication --Homelessness. Social service consult initiated for help with resources. We will await further recommendations. --DVT prophylaxis with heparin subQ. Discharge Plan: Home Plan to discharge in: Greater than 2 days - Advance Directives Does patient have a Living Will: No Does patient have a Durable POA for Healthcare: No - Code Status/Comfort Care Code Status Assessed: Yes Physician Review: Patient Assessed, Agree with Above Assessment and Plan Critical Care: No <Stefano Banks - Last Filed: 09/09/22 19:08> Physician Review: Patient Assessed, Agree with Above Assessment and Plan <Juan Alberto Pepper - Last Filed: 09/09/22 19:26>
[2022-09-09] MEDS: NA CHLORIDE 0.9% 1,000 ML IV SCH (18:10)
[2022-09-09 18:16] VITALS: BMI 19.1
[2022-09-09] MEDS ORDERED: INFLUENZA VACCINE (for 6+ mo) 0.5 ML DOSE IMVAC ONE (20:00)
[2022-09-09] MEDS: HEPARIN 5000 UNIT/ML 1 ML VIAL SQ SCH (20:56)
[2022-09-09] MEDS: HYDROCODONE/APAP 5/325 MG TAB PO PRN (21:02)
[2022-09-09 21:19] LABS: Magnesium 1.9 mg/dL (1.6-2.4); Phosphorus 4.4 mg/dL (2.5-4.9); Thyroid Stimulating Hormone 8.7 uIU/mL (0.358-3.740)
[2022-09-09] MEDS ORDERED: NA CHLORIDE 0.9% 500 ML IV ONE (23:50)
[2022-09-10 04:40] LABS: Potassium 3.2 mmol/L (3.5-5.1)
[2022-09-10 04:43] LABS: Absolute Lymphocytes (CBC) 1.7 K/uL (0.7-4.9); Hematocrit 32.9 % (39.6-49.0); Lymphocytes % 20.9 % (15.3-44.8); MCV 86.7 fL (80-100); MPV 6.7 fL (7.6-11.3)
[2022-09-10 05:02] LABS: Specific Gravity 1.026 (1.005-1.030); Urine Bacteria <20 /HPF (<20); Urine Bilirubin NEGATIVE (Negative); Urine Blood Negative (Negative); Urine Clarity Clear (Clear); Urine Color Light-Yellow (Yellow); Urine Glucose NEGATIVE (Negative); Urine Granular Casts 0-5 /LPF (None Seen); Urine Protein 1+ (Negative); Urine RBC <5 /HPF (None Seen); Urine Urobilinogen Normal (Normal); Urine pH 6.5 (5.0-7.0)
[2022-09-10] MEDS: NA CHLORIDE 0.9% 1,000 ML IV SCH (05:55)
[2022-09-10] MEDS ORDERED: POTASSIUM 25 MEQ EFFERV TAB PO ONE (06:00)
[2022-09-10] MEDS: ACETAMINOPHEN 325 MG TABLET PO PRN (06:46)
[2022-09-10] MEDS: ASPIRIN 81 MG CHEWABLE TABLET PO SCH (08:23)
[2022-09-10] MEDS: HEPARIN 5000 UNIT/ML 1 ML VIAL SQ SCH ×2 (08:24→20:17)
[2022-09-10] MEDS: Ringers Lactate 1,000 ML IV SCH ×3 (08:25→18:10)
[2022-09-10] MEDS: HYDROCODONE/APAP 5/325 MG TAB PO PRN (16:16)
--- NOTE | 2022-09-10 18:50 | P.PN ---
Subjective Date of Service: 09/10/22 Chief Complaint: Near syncope No acute events overnight. He reports that he feels better this morning. He reports that he continues to experience generalized weakness. His creatinine and sodium levels are improving. Review of Systems 10-point ROS is otherwise unremarkable General: Weakness (generalized) Physical Examination - Vital Signs Temperature: 98.2 F Blood Pressure: 100/58 Pulse: 71 Respirations: 16 Pulse Ox (%): 100 Assessment And Plan - Plan - Physical Exam General: Alert, In no apparent distress, Oriented x3 HEENT: Atraumatic, EOMI, Sclerae nonicteric Neck: JVD not distended Respiratory: Clear to auscultation bilaterally Cardiovascular: No edema, Regular rate/rhythm, Normal S1 S2 Gastrointestinal: Non-distended, No tenderness, Other (ileostomy bag with green/brown liquid stool present. Prolapse bowel visualized in bag.) Musculoskeletal: No clubbing Integumentary: No rashes Neurological: Normal speech, Normal affect # KDIGO Stage I Acute Kidney Injury likely secondary to Dehydration - Creatinine = 2.03 -> 1.74 (baseline creatinine ~1.1-1.2) - Urinalysis = 1+ protein - Lactated Ringers' @ 100 mL/hr - Monitor creatinine and urine output - If worsening, obtain renal ultrasound - Renally dose medications # Suspect Hypovolemic Hyponatremia # Hypokalemia - Sodium trend: 128 -> 130 - IV fluids as mentioned above - Serial BMP # Prolapsed Bowel into Ileostomy # History of Small Bowel Obstruction s/p Ileostomy (~[id number]) - Ileostomy bag has been replaced # Bipolar Disorder # Hypothyroidism # Hypertension - Not on any medications as an outpatient # Homelessness - Consulted CM for assistance with information on homeless shelters Juan Alberto Pepper M.D.
[2022-09-11] MEDS: Ringers Lactate 1,000 ML IV SCH ×4 (05:12→16:58)
[2022-09-11 05:20] LABS: Magnesium 1.8 mg/dL (1.6-2.4)
[2022-09-11] MEDS ORDERED: MAGNESIUM SULFATE 1 gm IVPB 1 GM/100 ML BAG IV ONE (06:00)
[2022-09-11] MEDS: HEPARIN 5000 UNIT/ML 1 ML VIAL SQ SCH ×2 (07:45→21:06)
[2022-09-11] MEDS: ASPIRIN 81 MG CHEWABLE TABLET PO SCH (07:45)
[2022-09-11] MEDS ORDERED: Ringers Lactate 500 ML IV ONE ×2 (08:59→20:00)
[2022-09-11] MEDS: HYDROCODONE/APAP 5/325 MG TAB PO PRN (11:43)
--- NOTE | 2022-09-11 18:45 | P.PN ---
Subjective Date of Service: 09/11/22 Chief Complaint: Near syncope No acute events overnight. He reports that he feels better this morning. His weakness has improved. His creatinine and sodium levels are improving. His blood pressure remains soft this morning. Review of Systems 10-point ROS is otherwise unremarkable General: Weakness (generalized) Physical Examination - Vital Signs Temperature: 97.8 F Blood Pressure: 108/58 Pulse: 74 Respirations: 18 Pulse Ox (%): 98 Assessment And Plan - Plan - Physical Exam General: Alert, In no apparent distress, Oriented x3 HEENT: Atraumatic, EOMI, Sclerae nonicteric Neck: JVD not distended Respiratory: Clear to auscultation bilaterally Cardiovascular: No edema, Regular rate/rhythm, Normal S1 S2 Gastrointestinal: Non-distended, No tenderness, Other (ileostomy in place. Prolapse bowel visualized in bag.) Musculoskeletal: No clubbing Integumentary: No rashes Neurological: Normal speech, Normal affect # KDIGO Stage I Acute Kidney Injury likely secondary to Dehydration # Hypovolemic Hypotension - Creatinine = 2.03 -> 1.74 -> 1.35 (baseline creatinine ~1.1-1.2) - Urinalysis = 1+ protein - Ordered 500 mL Lactated Ringers' - Increased Lactated Ringers' from 100 to 125 mL/hr - Monitor creatinine and urine output - If worsening, obtain renal ultrasound - Renally dose medications # Suspect Hypovolemic Hyponatremia # Hypokalemia - Sodium trend: 128 -> 130 -> 133 - IV fluids as mentioned above - Serial BMP # Prolapsed Bowel into Ileostomy # History of Small Bowel Obstruction s/p Ileostomy (~[id number]) - Ileostomy bag has been replaced # Bipolar Disorder # Hypothyroidism # Hypertension - Not on any medications as an outpatient # Homelessness - Consulted CM for assistance with information on homeless shelters Juan Alberto Pepper M.D.
[2022-09-12] MEDS: Ringers Lactate 1,000 ML IV SCH ×4 (00:58→19:46)
[2022-09-12 04:48] LABS: Magnesium 1.9 mg/dL (1.6-2.4); Potassium 4.2 mmol/L (3.5-5.1)
[2022-09-12] MEDS: ACETAMINOPHEN 325 MG TABLET PO PRN ×2 (04:56→15:54)
[2022-09-12] MEDS ORDERED: Ringers Lactate 500 ML IV ONE (06:55)
[2022-09-12] MEDS: ASPIRIN 81 MG CHEWABLE TABLET PO SCH (07:30)
[2022-09-12] MEDS: HEPARIN 5000 UNIT/ML 1 ML VIAL SQ SCH ×2 (07:30→22:06)
[2022-09-12] MEDS ORDERED: Ringers Lactate 1,000 ML IV ONE (08:07)
--- NOTE | 2022-09-12 10:04 | P.PN ---
Subjective Date of Service: 09/12/22 Chief Complaint: Near syncope No acute events overnight. He reports that he continues to gradually feel better. His creatinine has normalized. This morning, his blood pressure was 90/50, an additional 1 L of lactated Ringer's was ordered. Review of Systems 10-point ROS is otherwise unremarkable General: Weakness Physical Examination - Vital Signs Temperature: 98.3 F Blood Pressure: 90/50 Pulse: 70 Respirations: 16 Pulse Ox (%): 98 Assessment And Plan - Plan - Physical Exam General: Alert, In no apparent distress, Oriented x3 HEENT: Atraumatic, Sclerae nonicteric Neck: JVD not distended Respiratory: Clear to auscultation bilaterally Cardiovascular: No edema, Regular rate/rhythm, Normal S1 S2 Gastrointestinal: Non-distended, No tenderness, Other (ileostomy in place. Prolapse bowel visualized in bag.) Musculoskeletal: No clubbing Integumentary: No rashes Neurological: Normal speech, Normal affect # KDIGO Stage I Acute Kidney Injury likely secondary to Dehydration # Hypovolemic Hypotension - Creatinine = 2.03 -> 1.74 -> 1.35 -> 1.18 (baseline creatinine ~1.1-1.2) - Urinalysis = 1+ protein - Ordered 1 L Lactated Ringers' - Continue Lactated Ringers' @ 125 mL/hr - Monitor creatinine and urine output - If worsening, obtain renal ultrasound - Renally dose medications # Suspect Hypovolemic Hyponatremia # Hypokalemia - Sodium trend: 128 -> 130 -> 133 -> 136 - IV fluids as mentioned above - Serial BMP # Prolapsed Bowel into Ileostomy # History of Small Bowel Obstruction s/p Ileostomy (~[id number]) - Ileostomy bag has been replaced # Bipolar Disorder # Hypothyroidism # Hypertension - Not on any medications as an outpatient # Homelessness - Consulted CM for assistance with information on homeless shelters Juan Alberto Pepper M.D.
[2022-09-12 21:21] VITALS: O2SAT 99
[2022-09-13] MEDS: Ringers Lactate 1,000 ML IV SCH (00:58)
[2022-09-13 04:19] LABS: Magnesium 1.7 mg/dL (1.6-2.4); Phosphorus 2.4 mg/dL (2.5-4.9); Potassium 3.6 mmol/L (3.5-5.1)
[2022-09-13] MEDS ORDERED: HYDROCODONE/APAP 5/325 MG TAB PO ONE (05:08)
[2022-09-13] MEDS ORDERED: POTASS/SODIUM PHOSPHATE 1 PKT POWD.PACK PO ONE (07:00)
[2022-09-13] MEDS ORDERED: POTASSIUM CL SA 10 MEQ TAB PO ONE ×2 (07:30→09:00)
[2022-09-13] MEDS: ASPIRIN 81 MG CHEWABLE TABLET PO SCH (07:35)
[2022-09-13] MEDS: HEPARIN 5000 UNIT/ML 1 ML VIAL SQ SCH (07:37)
--- NOTE | 2022-09-13 08:02 | P.DS ---
Admission Date: 09/09/22 Discharge Date: 09/13/22 Disposition: ROUTINE DISCHARGE Discharge Condition: GOOD Reason for Admission: Near syncope Hospital Course: DIAGNOSES: # KDIGO Stage I Acute Kidney Injury likely secondary to Dehydration # Hypovolemic Hypotension # Suspect Hypovolemic Hyponatremia # Hypokalemia # Prolapsed Bowel into Ileostomy # History of Small Bowel Obstruction s/p Ileostomy (~[id number]) # Bipolar Disorder # Hypothyroidism # Hypertension # Homelessness HOSPITAL COURSE: Mr. Rico Mcneill is a 52 year old male with a past medical history significant for history of small bowel obstruction s/p ileostomy (~[id number]) complicated by prolapsed bowel into the ileostomy, bipolar disorder, hypothyroidism, and hypertension who was admitted to the [facility] on 09/09/2022 for near syncope and increased ostomy output. He was admitted to the Medicine service. Upon further evaluation, he was found to have hypovolemic hyponatremia, borderline hypotension, and an acute kidney injury. He was treated with IV fluids, and over the course of his hospitalization, his symptoms improved significantly. Orthostatic vital signs were obtained and were negative. With the IV fluids, his sodium and creatinine gradually normalized. Throughout his hospitalization, he was noted to have borderline soft blood pressures; however, he was never symptomatic from these blood pressures over the last 48 hours. He ambulated around the nursing station, without any symptoms at all. In order to help his soft blood pressures, he was given a prescription for midodrine. He was given a Good Rx coupon, and he states that he will be able to afford this medication with the coupon. This morning, he states that he feels well and would like to be discharged. On 09/13/2022, he was seen on morning rounds and deemed medically stable for discharge. He was discharged with instructions to schedule follow-up appointments with his PCP. He was provided a prescription for midodrine. He was given the opportunity to ask questions and reported no further questions. Furthermore, all questions were answered to the best of my ability. Today, I personally spent 25 minutes on his case, of which greater than 50% of the time was spent in patient education, counseling, and coordination of care as described above. - Physical Exam General: Alert, In no apparent distress, Oriented x3 HEENT: Atraumatic, Sclerae nonicteric Neck: JVD not distended Respiratory: Clear to auscultation bilaterally Cardiovascular: No edema, Regular rate/rhythm, Normal S1 S2 Gastrointestinal: Non-distended, No tenderness, Other (ileostomy in place. Prolapse bowel visualized in bag.) Musculoskeletal: No clubbing Integumentary: No rashes Neurological: Normal speech, Normal gait, Normal affect Vital Signs/Physical Exam: Temp Pulse Resp BP Pulse Ox 97.6 F 74 18 117/73 96 09/13/22 04:00 09/13/22 04:00 09/13/22 04:00 09/13/22 04:00 09/13/22 04:00 Laboratory Data at Discharge: WBC 8.40 K/uL (4.3-10.9) 09/10/22 03:40 Hgb 11.0 g/dL (13.6-17.9) L D 09/10/22 03:40 Hct 32.9 % (39.6-49.0) L 09/10/22 03:40 Plt Count 440 K/uL (152-406) H 09/10/22 03:40 Sodium 139 mmol/L (136-145) 09/13/22 03:51 Potassium 3.6 mmol/L (3.5-5.1) D 09/13/22 03:51 BUN 23 mg/dL (7-18) H 09/13/22 03:51 Creatinine 1.18 mg/dL (0.70-1.30) 09/13/22 03:51 Glucose 106 mg/dL (74-106) 09/13/22 03:51 Phosphorus 2.4 mg/dL (2.5-4.9) L 09/13/22 03:51 Magnesium 1.7 mg/dL (1.6-2.4) 09/13/22 03:51 Total Bilirubin 0.3 mg/dL (0.2-1.0) 09/09/22 12:38 AST 18 U/L (15-37) 09/09/22 12:38 ALT 38 U/L (16-61) 09/09/22 12:38 Alkaline Phosphatase 75 U/L (45-117) 09/09/22 12:38 Home Medications: Midodrine HCl [Proamatine*] 5 mg PO TID #90 tab 09/13/22 New Medications: Midodrine HCl [Proamatine*] 5 mg PO TID #90 tab Physician Discharge Instructions: 1. Please call and schedule a follow-up appointment with your PCP in 3-5 days Diet: Regular Activity: Ad tomeka Followup: NONE,NONE [Primary Care Provider] - Time spent managing pt's care (in minutes): 25
[2022-09-13] MEDS ORDERED: MIDODRINE HCL 5 MG TABLET PO SCH (09:00)
[2022-09-13] MEDS ORDERED: MAGNESIUM SULFATE 1 gm IVPB 1 GM/100 ML BAG IV ONE (09:00)
[2022-09-13 10:08] VITALS: TEMP 97.9
[2022-09-13 10:09] VITALS: BP 113/57
--- NOTE | 2022-09-15 07:47 | ECHO ---
HEIGHT: 6 ft 1 in WEIGHT: 145 lb 0 oz DATE OF STUDY: 09/12/[address]: Juan Albreto Pepper MD 2-DIMENSIONAL: YES M.MODE: YES DOPPLER: YES COLOR FLOW: YES TDS: PORTABLE: DEFINITY: BUBBLE STUDY: DIAGNOSIS: HYPOTENSION CARDIAC HISTORY: CATHERIZATION: SURGERY: PROSTHETIC VALVE: PACEMAKER: MEASUREMENTS (cm) DIASTOLIC (NORMALS) SYSTOLIC (NORMALS) IVSd 1.1 (0.6-1.2) LA Diam 3.8 (1.9-4.0) LVEF 62% LVIDd 3.8 (3.5-5.7) LVIDs 2.6 (2.0-3.5) %FS 33% LVPWd 1.2 (0.6-1.2) Ao Diam 3.1 (2.0-3.7) 2 DIMENSIONAL ASSESSMENT: RIGHT ATRIUM: NOT WELL SEEN LEFT ATRIUM: NOT WELL SEEN RIGHT VENTRICLE: NOT WELL SEEN LEFT VENTRICLE: APPEARS NORMAL TRICUSPID VALVE: NOT WELL SEEN MITRAL VALVE: NORMAL PULMONIC VALVE: NOT WELL SEEN AORTIC VALVE: NORMAL PERICARDIAL EFFUSION: NONE AORTIC ROOT: NOT SEEN LEFT VENTRICULAR WALL MOTION: UNABLE TO EVALUATE DUE TO POOR WINDOWS DOPPLER/COLOR FLOW: SEE BELOW COMMENTS: 1. VERY POOR WINDOWS 2. OVERALL LEFT VENTRICULAR EJECTION FRACTION APPEARS NORMAL 3. NORMAL DIASTOLIC FUNCTION TECHNOLOGIST: LY MORSE
== END 2022-09-13 08:53 | disposition home or self-care (01) | DRG 683 ==
LOC: ER 11:38 → ERHOLD 16:02 → 4TH 17:43
PROVIDERS: ADMIT Internal Medicine; ATTEND Internal Medicine
DX: N17.9 Acute kidney failure, unspecified (principal); E87.1 Hypo-osmolality and hyponatremia; I10 Essential (primary) hypertension; E03.9 Hypothyroidism, unspecified; F31.9 Bipolar disorder, unspecified; E86.9 Volume depletion, unspecified; E87.6 Hypokalemia; D63.8 Anemia in other chronic diseases classified elsewhere; E86.0 Dehydration; K63.4 Enteroptosis; F17.220 Nicotine dependence, chewing tobacco, uncomplicated; R19.7 Diarrhea, unspecified; Z93.2 Ileostomy status; Z90.49 Acquired absence of other specified parts of digestive tract; Z59.00 Homelessness unspecified; Z79.899 Other long term (current) drug therapy; Z20.822 Contact with and (suspected) exposure to COVID-19
CPT/HCPCS: 36415; 80048; 80053; 81001; 82550; 83735; 83880; 84100; 84132; 84439; 84443; 84484; 85025; 87045; 87046; 87177; 87209; 87811; 89055; 93005; 93306; 96360; 96361; 99285; J1644; J3475; J7030; J7040; J7120

== ENCOUNTER 2022-09-14 02:52 | Emergency (ER) | payer SELFPAY ==
[2022-09-14] MEDS ORDERED: NA CHLORIDE 0.9% 1,000 ML ONE (03:22)
--- OUTSIDE RECORDS SUMMARY | 2022-09-14 03:38 | XMS REPORT | Continuity of Care Document ---
:1970 Author Organization [facility] t Address [address] [place] [address] [address] [place] [address] Care Team Providers Name Role Phone UNKNOWN, REFFERING Primary Care Physician Unavailable Coco Nova Attending Clinician Unavailable Mark Perea Attending Clinician Unavailable Steve Urias Attending Clinician Unavailable YESSI RAMOS Attending Clinician Unavailable NELSON GARCIA Attending Clinician Unavailable KENDRA CARDENAS Attending Clinician Unavailable ANYA, LEÓN MUIR Attending Clinician Unavailable Aryan Tello MD Attending Clinician [phone] Marty CAPONE, Dee Dee Nelson Attending Clinician Shiela CAPONE, EduarebenezerZander Attending Clinician Pao Barton MD Attending Clinician Anya CAPONE, León Muir Attending Clinician [phone] Teddy Carbajal MD Attending Clinician Bernabe Calvert [...] Clinician Lindsey Escobar, Steve Santana Attending Clinician [phone] KARIN BASSETT Attending Clinician Unavailable Bert [...] Number Effective Date Expiration Date Jessica rowland [facility] [id number] 2019 ADMIT 00:00:00 Problems Condition Condition Condition Status Onset Resolution Last Treating Co mments Source Name Details Category Date Date Treatment Clinician Date Lightheade Lightheade Disease Active [facility] Altered Altered Disease Active [place] bowel bowel 01-19 [facility] eliminatio eliminatio 00:00: n due to n due to 00 intestinal intestinal ostomy ostomy Acute Acute Disease Active [place] kidney kidney 5-20 [facility] injury injury 00:00: 00 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 [facility] resection resection 00:00: Medi mariusz 00 Center Intestinal Intestinal Disease Active [facility] stoma stoma 03-17 [facility] prolapse prolapse 00:00: Medica l 00 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 [facility] stoma 15 Health 00:00: 00 Dehydratio Dehydratio Disease Active H [facility] n n Health Encounter Encounter Disease Active [facility] for ostomy [facility] care education education ALMA (acute [...] [facility]09 [facility] 00:00: [facility] 00 [facility] No Known DA Active U 2020-08 [facility] 1-29 [facility] 00:00: d 00 [facility] No Known DA Active U [facility] 9-05 Clear s 00:00: [facility] No Known DA Active U [facility] 9[facility]05 Clear s 00:00: [facility] No Known DA Active [facility] 7[facility]03 Clear s 00:00: [facility] No Known DA Active U [facility] 5[facility]14 Clear s 00:00: [facility] No Known DA Active U [facility] [...] Alcohol intake 2022-02-18 2022-02-18 Current drinker of [facility] 00:00:00 00:00:00 alcohol (finding) History [facility] 2019-03-17 2019-03-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 [facility] Alcohol Comment 00:00:00 00:00:00 Medical C enter Tobacco use and 2019-03-17 2019-03-[address] [facility] exposure 00:00:00 00:00:00 Medical Center History SDMS Food 2017-04-14 2017-04-14 1 [place] [facility] Worry 00:00:00 00:00:00 History SDMS Food 2017-04-14 2017-04-14 1 [facility] Scarcity 00:00:00 00:00:00 Sex [birth year] At [birth year] Maged Douglas alth 00:00:00 00:00:00 Smoking Status Start Date Stop Date Source Never smoker [facility] Medications Ordered Filled Start Stop [...] intestinal ostomy loperamide 2021- No Altered 4mg Q.82345700 Take 2 Lynne (IMODIUM) 2 02-20 bowel [id number] capsules Health mg capsule 00:00: 23:59 elimination [...] intestinal ostomy loperamide 2021- No Altered 4mg Q.22097489 Take 2 [facility] (IMODIUM) 2 02-20 bowel [id number] capsules Health mg capsule 00:00: 23:59 elimination [...] intestinal ostomy loperamide 2021- No Altered 4mg Q.13246856 Take 2 [facility] (IMODIUM) 2 02-20 bowel [id number] capsules Health mg capsule 00:00: 23:59 elimination [...] intestinal ostomy loperamide 2021- No Altered 4mg Q.07618193 Take 2 [facility] (IMODIUM) 2 02-20 bowel [id number] capsules Health mg capsule 00:00: 23:59 elimination [...] intestinal ostomy loperamide 2021- No Altered 4mg Q.29855662 Take 2 [facility] (IMODIUM) 2 02-20 bowel [id number] capsules Health mg capsule 00:00: 23:59 elimination [...] intestinal ostomy loperamide 2021- No Altered 4mg Q.10569792 Take 2 [facility] (IMODIUM) 2 02-20 bowel [id number] capsules Health mg capsule 00:00: 23:59 elimination [...] intestinal ostomy loperamide 2021- No Altered 4mg Q.76160847 Take 2 Lynne (IMODIUM) 2 02-20 bowel [id number] capsules Health mg capsule 00:00: 23:59 elimination [...] intestinal ostomy loperamide 2021- No Altered 4mg Q.64474511 Take 2 [facility]ne (IMODIUM) 2 02-20 bowel [id number] capsules Health mg capsule 00:00: 23:59 elimination [...] intestinal ostomy loperamide 2021- No Altered 4mg Q.84671181 Take 2 Lynne (IMODIUM) 2 02-20-30 bowel [id number] capsules Health mg capsule 00:00: 23:59 elimination [...] intestinal ostomy loperamide 2021- No Altered 4mg Q.38795287 Take 2 Lynne (IMODIUM) 2 02-20-30 bowel [id number] capsules Health mg capsule 00:00: 23:59 elimination [...] intestinal ostomy loperamide 2021- No Altered 4mg Q.12427129 Take 2 Lynne (IMODIUM) 2 02-20-30 bowel [id number] capsules Health mg capsule 00:00: 23:59 elimination [...] intestinal ostomy loperamide 2021- No Altered 4mg Q.59751124 Take 2 Lynne (IMODIUM) 2 02-20-30 bowel [id number] capsules Health mg capsule 00:00: 23:59 elimination [...] intestinal ostomy loperamide 2021- No Altered 4mg Q.59611111 Take 2 Lynne (IMODIUM) 2 02-20-30 bowel [id number] capsules Health mg capsule 00:00: 23:59 elimination [...] intestinal ostomy loperamide 2021- No Altered 4mg Q.87302969 Take 2 Lynne (IMODIUM) 2 02-2030 bowel [id number] capsules Health mg capsule 00:00: 23:59 elimination [...] intestinal ostomy loperamide 2021- No Altered 4mg Q.63987885 Take 2 [facility] (IMODIUM) 2 02-20 bowel [id number] capsules Health mg capsule 00:00: 23:59 elimination [...] intestinal ostomy loperamide 2021- No Altered 4mg Q.04157736 Take 2 [facility] (IMODIUM) 2 02-20-30 bowel [id number] capsules Health mg capsule 00:00: 23:59 elimination [...] intestinal ostomy loperamide 2021- No Altered 4mg Q.55083759 Take 2 [facility] (IMODIUM) 2 02-20-30 bowel [id number] capsules Health mg capsule 00:00: 23:59 elimination [...] intestinal ostomy loperamide 2021- No Altered 4mg Q.24467629 Take 2 Lynne (IMODIUM) 2 02-20 bowel [id number] capsules Health mg capsule 00:00: 23:59 elimination 3D by mouth 3 00 :00 due to times intestinal daily ostomy (before meals) for 30 days tamsulosin 2021- No Acute .4mg Take 1 Copma ris (FLOMAX) 02-20 kidney capsule by He [...] Lynne (METAMUCIL) 02-1130 bowel t} Packet by [facility] 6 gram PwPk 00:00: 00:00 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 psyllium 2021- No Altered 1{packe Take 1 Lynne (METAMUCIL) 02-1130 bowel t} Packet by [facility] 6 gram PwPk 00:00: 00:00 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 psyllium 2021- No Altered 1{packe Take 1 Lynne (METAMUCIL) 02-1130 bowel t} Packet by [facility] 6 gram PwPk 00:00: 00:00 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 psyllium 2021- No Altered 1{packe Take 1 Lynne (METAMUCIL) 02-1130 bowel t} Packet by [facility] 6 gram PwPk 00:00: 00:00 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 psyllium 2021- No Altered 1{packe Take 1 Lynne (METAMUCIL) 02-1130 bowel t} Packet by [facility] 6 gram PwPk 00:00: 00:00 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 psyllium 2021- No Altered 1{packe Take 1 Lynne (METAMUCIL) 02-1130 bowel t} Packet by [facility] 6 gram PwPk 00:00: 00:00 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 psyllium 2021- No Altered 1{packe Take 1 Lynne (METAMUCIL) 02-1130 bowel t} Packet by [facility] 6 gram PwPk 00:00: 00:00 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 psyllium 2021-0 2021- No Altered 1{packe Take 1 Lynne (METAMUCIL) 02-1130 bowel t} Packet by [facility] 6 gram PwPk 00:00: 00:00 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 psyllium 2021- No Altered 1{packe Take 1 Lynne (METAMUCIL) 02-11-30 bowel t} Packet by [facility] 6 gram PwPk 00:00: 00:00 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 psyllium 2021- No Altered 1{packe Take 1 Lynne (METAMUCIL) 02-11-30 bowel t} Packet by [facility] 6 gram PwPk 00:00: 00:00 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 psyllium 2021- No Altered 1{packe Take 1 Lynne (METAMUCIL) 02-1130 bowel t} Packet by [facility] 6 gram PwPk 00:00: 00:00 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 psyllium 2021- No Altered 1{packe Take 1 Lynne (METAMUCIL) 02-1130 bowel t} Packet by [facility] 6 gram PwPk 00:00: 00:00 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 psyllium 2021- No Altered 1{packe Take 1 Lynne (METAMUCIL) 02-1130 bowel t} Packet by [facility] 6 gram PwPk 00:00: 00:00 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 ascorbic 2021- No Altered 250mg QD Take 1 Momin rris acid, 01-21-30 bowel tablet by [facility] vitamin C, 00:00: 23:59 elimination mouth 250 mg 00 :00 due to daily for tablet intestinal 60 days ostomy magnesium 2021- No Altered 800mg Q.5D Take 2 H arris oxide -23 03-30 bowel tablets by [facility] (MAG-OX) 00:00: 23:59 elimination mouth 2 400 mg 00 :00 due to times (241.3 mg intestinal daily for magnesium) ostomy 60 days tablet multivitami 2021- No Altered 1{tbl} QD Take 1 Lynne n with 01-21-30 bowel tablet by [facility] folic acid 00:00: 23:59 elimination mouth (THERA) 400 00 :00 due to daily for mcg tablet intestinal 60 days ostomy ascorbic 2021- No Altered 250mg QD Take 1 Momin rris acid, 5- 07-30 bowel tablet by [facility] vitamin C, 00:00: 23:59 elimination [...] Momin rris acid, 01-21-30 bowel tablet by [facility] vitamin C, 00:00: 23:59 elimination [...] rris acid, -23 03-30 bowel tablet by [facility] vitamin C, 00:00: 23:59 elimination [...] rris acid, -23 03-30 bowel tablet by [facility] vitamin C, 00:00: 23:59 elimination mouth 250 mg 00 :00 due to daily for tablet intestinal 60 days ostomy magnesium 2021-2021- No Altered 800mg Q.5D Take 2 H arris oxide 5-23 03-30 bowel tablets by [facility] (MAG-OX) 00:00: 23:59 elimination mouth 2 400 [...] Momin rris acid, 01-21-30 bowel tablet by [facility] vitamin C, 00:00: 23:59 elimination [...] arris oxide 5- 07-30 bowel tablets by [facility] (MAG-OX) 00:00: 23:59 elimination mouth 2 400 mg 00 :00 due to times (241.3 mg intestinal daily for magnesium) ostomy 60 days tablet multivitami 2021- No Altered 1{tbl} QD Take 1 Lynne n with 5-30 bowel tablet by Health folic acid 00:00: [...] H arris oxide 01-21-30 bowel tablets by [facility] (MAG-OX) 00:00: 23:59 elimination mouth 2 400 [...] arris oxide 5- 07-30 bowel tablets by [facility] (MAG-OX) 00:00: 23:59 elimination mouth 2 400 [...] Momin rris acid, 01-21-30 bowel tablet by [facility] vitamin C, 00:00: 23:59 elimination mouth 250 mg 00 :00 due to daily for tablet intestinal 60 days ostomy magnesium 2021- No Altered 800mg Q.5D Take 2 H arris oxide -23 03-30 bowel tablets by [facility] (MAG-OX) 00:00: 23:59 elimination mouth 2 400 mg 00 :00 due to times (241.3 mg intestinal daily for magnesium) ostomy 60 days tablet multivitami 2021- No Altered 1{tbl} QD Take 1 Lynne n with 01-21-30 bowel tablet by [facility] folic acid 00:00: 23:59 elimination mouth (THERA) 400 00 :00 due to daily for mcg tablet intestinal 60 days ostomy ascorbic 2021- No Altered 250mg QD Take 1 Momin rris acid, 01-21-30 bowel tablet by [facility] vitamin C, 00:00: 23:59 elimination mouth 250 mg 00 :00 due to daily for tablet intestinal 60 days ostomy magnesium 2021- No Altered 800mg Q.5D Take 2 H arris oxide 5- 07-30 bowel tablets by [facility] (MAG-OX) 00:00: 23:59 elimination mouth 2 400 [...] Momin rris acid, 01-21 bowel tablet by [facility] vitamin C, 00:00: 23:59 elimination mouth 250 mg 00 :00 due to daily for tablet intestinal 60 days ostomy magnesium 2021- No Altered 800mg Q.5D Take 2 H arris oxide 01-21 bowel tablets by [facility] (MAG-OX) 00:00: 23:59 elimination mouth 2 400 mg 00 :00 due to times (241.3 mg intestinal daily for magnesium) ostomy 60 days tablet multivitami 2021- No Altered 1{tbl} QD Take 1 Lynne n with 01-21 bowel tablet by [facility] folic acid 00:00: 23:59 elimination mouth (THERA) [...] days ostomy loperamide 2021- No Altered 4mg Q.[id number] Take 2 Lynne (IMODIUM) 2 01-21 bowel [id number] capsules Health mg capsule 00:00: 00:00 elimination [...] days ostomy loperamide 2021- No Altered 4mg Q.19775500 Take 2 Lynne (IMODIUM) 2 01-21-30 bowel [id number] capsules Health mg capsule 00:00: 00:00 elimination [...] days ostomy loperamide 2021- No Altered 4mg Q.06829584 Take 2 Lynne (IMODIUM) 2 01-21 bowel [id number] capsules Health mg capsule 00:00: 00:00 elimination [...] days ostomy loperamide 2021- No Altered 4mg Q.72332044 Take 2 Lynne (IMODIUM) 2 01-21-30 bowel [id number] capsules Health mg capsule 00:00: 00:00 elimination [...] days ostomy loperamide 2021- No Altered 4mg Q.[id number] Take 2 Lynne (IMODIUM) 2 01-21 bowel [id number] capsules Health mg capsule 00:00: 00:00 elimination [...] days ostomy loperamide 2021- No Altered 4mg Q.97183505 Take 2 Lynne (IMODIUM) 2 01-21 bowel [id number] capsules Health mg capsule 00:00: 00:00 elimination [...] days ostomy loperamide 2021- No Altered 4mg Q.[id number] Take 2 [facility] (IMODIUM) 2 01-21 bowel [id number] capsules Health mg capsule 00:00: 00:00 elimination [...] 60 days ostomy loperamide No Altered 4mg Q.64437202 Take 2 Lynne (IMODIUM) 2 01-21 bowel [id number] capsules Health mg capsule 00:00: 00:00 elimination [...] days ostomy loperamide 2021- No Altered 4mg Q.76991232 Take 2 Lynne (IMODIUM) 2 01-21 bowel [id number] capsules Health mg capsule 00:00: 00:00 elimination [...] days ostomy loperamide 2021- No Altered 4mg Q.22444799 Take 2 Lynne (IMODIUM) 2 01-21 bowel [id number] capsules Health mg capsule 00:00: 00:00 elimination [...] days ostomy loperamide 2021- No Altered 4mg Q.36502430 Take 2 [facility] (IMODIUM) 2 01-21 bowel [id number] capsules Health mg capsule 00:00: 00:00 elimination [...] days ostomy loperamide 2021- No Altered 4mg Q.00479791 Take 2 [facility] (IMODIUM) 2 01-21 bowel [id number] capsules Health mg capsule 00:00: 00:00 elimination [...] days ostomy loperamide 2021- No Altered 4mg Q.55129935 Take 2 [facility] (IMODIUM) 2 01-21 bowel [id number] capsules Health mg capsule 00:00: 00:00 elimination [...] days ostomy loperamide 2021- No Altered 4mg Q.55231715 Take 2 [facility] (IMODIUM) 2 01-21 bowel [id number] capsules Health mg capsule 00:00: 00:00 elimination [...] days ostomy loperamide 2021- No Altered 4mg Q.75802442 Take 2 Lynne (IMODIUM) 2 01-21 bowel [id number] capsules Health mg capsule 00:00: 00:00 elimination [...] days ostomy loperamide 2021- No Altered 4mg Q.59740218 Take 2 [facility] (IMODIUM) 2 01-21 bowel [id number] capsules Health mg capsule 00:00: 00:00 elimination [...] days ostomy loperamide 2021- No Altered 4mg Q.49942062 Take 2 [facility]ne (IMODIUM) 2 01-21 bowel [id number] capsules Health mg capsule 00:00: 00:00 elimination [...] 60 days ostomy loperamide No Altered 4mg Q.31437178 Take 2 [facility] (IMODIUM) 2 01-21 bowel [id number] capsules Health mg capsule 00:00: 00:00 elimination 3D by mouth 3 00 :00 due to times intestinal daily ostomy (before meals) for 30 days psyllium 2021- No Altered 1{packe Q.33001098 Take 1 Lynne (METAMUCIL) 01-21 bowel t} [id number] Packet by [facility] 6 gram PwPk 00:00: 00:00 elimination 3D mouth 3 00 :00 due to times intestinal daily ostomy (before meals) for 90 days psyllium 2021- No Altered 1{packe Q.28209018 Take 1 Lynne (METAMUCIL) 01-21 bowel t} [id number] Packet by [facility] 6 gram PwPk 00:00: 00:00 elimination 3D mouth 3 00 :00 due to times intestinal daily ostomy (before meals) for 90 days psyllium 2021- No Altered 1{packe Q.[id number] Take 1 Lynne (METAMUCIL) 01-21 bowel t} [id number] Packet by [facility] 6 gram PwPk 00:00: 00:00 elimination 3D mouth 3 00 :00 due to times intestinal daily ostomy (before meals) for 90 days psyllium 2021- No Altered 1{packe Q.80283562 Take 1 Lynne (METAMUCIL) 01-21 bowel t} [id number] Packet by [facility] 6 gram PwPk 00:00: 00:00 elimination 3D mouth 3 00 :00 due to times intestinal daily ostomy (before meals) for 90 days psyllium 2021- No Altered 1{packe Q.36759207 Take 1 Lynne (METAMUCIL) 01-21 bowel t} [id number] Packet by [facility] 6 gram PwPk 00:00: 00:00 elimination 3D mouth 3 00 :00 due to times intestinal daily ostomy (before meals) for 90 days psyllium 2021- No Altered 1{packe Q.48134995 Take 1 Lynne (METAMUCIL) 01-21 bowel t} [id number] Packet by [facility] 6 gram PwPk 00:00: 00:00 elimination 3D mouth 3 00 :00 due to times intestinal daily ostomy (before meals) for 90 days psyllium 2021- No Altered 1{packe Q.[id number] Take 1 Lynne (METAMUCIL) 01-21 bowel t} [id number] Packet by [facility] 6 gram PwPk 00:00: 00:00 elimination 3D mouth 3 00 :00 due to times intestinal daily ostomy (before meals) for 90 days psyllium 2021- No Altered 1{packe Q.[id number] Take 1 Lynne (METAMUCIL) 01-21 bowel t} [id number] Packet by [facility] 6 gram PwPk 00:00: 00:00 elimination 3D mouth 3 00 :00 due to times intestinal daily ostomy (before meals) for 90 days psyllium 2021- No Altered 1{packe Q.[id number] Take 1 Lynne (METAMUCIL) 01-21 bowel t} [id number] Packet by [facility] 6 gram PwPk 00:00: 00:00 elimination 3D mouth 3 00 :00 due to times intestinal daily ostomy (before meals) for 90 days psyllium 2021- No Altered 1{packe Q.[id number] Take 1 Lynne (METAMUCIL) 01-21 bowel t} [id number] Packet by [facility] 6 gram PwPk 00:00: 00:00 elimination 3D mouth 3 00 :00 due to times intestinal daily ostomy (before meals) for 90 days psyllium 2021- No Altered 1{packe Q.[id number] Take 1 Lynne (METAMUCIL) 01-21 bowel t} [id number] Packet by [facility] 6 gram PwPk 00:00: 00:00 elimination 3D mouth 3 00 :00 due to times intestinal daily ostomy (before meals) for 90 days psyllium 2021- No Altered 1{packe Q.[id number] Take 1 Lynne (METAMUCIL) 01-21 bowel t} [id number] Packet by [facility] 6 gram PwPk 00:00: 00:00 elimination 3D mouth 3 00 :00 due to times intestinal daily ostomy (before meals) for 90 days psyllium 2021- No Altered 1{packe Q.[id number] Take 1 Lynne (METAMUCIL) 01-21 bowel t} [id number] Packet by [facility] 6 gram PwPk 00:00: 00:00 elimination 3D mouth 3 00 :00 due to times intestinal daily ostomy (before meals) for 90 days psyllium 2021- No Altered 1{packe Q.84852302 Take 1 Lynne (METAMUCIL) 01-21 bowel t} [id number] Packet by [facility] 6 gram PwPk 00:00: 00:00 elimination 3D mouth 3 00 :00 due to times intestinal daily ostomy (before meals) for 90 days psyllium 2021- No Altered 1{packe Q.00881078 Take 1 Lynne (METAMUCIL) 01-21 bowel t} [id number] Packet by [facility] 6 gram PwPk 00:00: 00:00 elimination 3D mouth 3 00 :00 due to times intestinal daily ostomy (before meals) for 90 days psyllium 2021- No Altered 1{packe Q.[id number] Take 1 Lynne (METAMUCIL) 01-21 bowel t} [id number] Packet by [facility] 6 gram PwPk 00:00: 00:00 elimination 3D mouth 3 00 :00 due to times intestinal daily ostomy (before meals) for 90 days psyllium 2021- No Altered 1{packe Q.[id number] Take 1 Lynne (METAMUCIL) 01-21 bowel t} [id number] Packet by [facility] 6 gram PwPk 00:00: 00:00 elimination 3D mouth 3 00 :00 due to times intestinal daily ostomy (before meals) for 90 days psyllium 2021- No Altered 1{packe Q.73473932 Take 1 Lynne (METAMUCIL) 01-21 bowel t} [id number] Packet by [facility] 6 gram PwPk 00:00: 00:00 elimination 3D mouth 3 00 :00 due to times intestinal daily ostomy (before meals) for 90 days tamsulosin 2021- No Benign .4mg QD Take 1 Momin rris (FLOMAX) 01-12 prostatic capsule by [facility] 0.4 mg 00:00: 00:00 hyperplasia mouth capsule 00 :00 , daily. unspecified Start on whether 01/12/2022. lower urinary tract symptoms present tamsulosin 2021-2021- No Benign .4mg QD Take 1 Momin rris (FLOMAX) 01-12 prostatic capsule by [facility] 0.4 mg 00:00: 00:00 hyperplasia mouth capsule 00 :00 , daily. unspecified Start on whether 01/12/2022. lower urinary tract symptoms present tamsulosin 2021- No Benign .4mg QD Take 1 Momin rris (FLOMAX) 01-12 prostatic capsule by [facility] 0.4 mg 00:00: 00:00 hyperplasia mouth capsule 00 :00 , daily. unspecified Start on whether 01/12/2022. lower urinary tract symptoms present tamsulosin 2021- No Benign .4mg QD Take 1 Momin rris (FLOMAX) 01-12 prostatic capsule by [facility] 0.4 mg 00:00: 00:00 hyperplasia mouth capsule 00 :00 , daily. unspecified Start on whether 01/12/2022. lower urinary tract symptoms present tamsulosin 2021- No Benign .4mg QD Take 1 Momin rris (FLOMAX) 01-12 prostatic capsule by [facility] 0.4 mg 00:00: 00:00 hyperplasia mouth capsule 00 :00 , daily. unspecified Start on whether 01/12/2022. lower urinary tract symptoms present tamsulosin 2021- No Benign .4mg QD Take 1 Momin rris (FLOMAX) 01-12 prostatic capsule by [facility] 0.4 mg 00:00: 00:00 hyperplasia mouth capsule [...] Momin rris (FLOMAX) 01-12 prostatic capsule by [facility] 0.4 mg 00:00: 00:00 hyperplasia mouth capsule 00 :00 , daily. unspecified Start on whether 01/12/2022. lower urinary tract symptoms present tamsulosin 2021- No Benign .4mg QD Take 1 Momin rris (FLOMAX) 01-12 prostatic capsule by [facility] 0.4 mg 00:00: 00:00 hyperplasia mouth capsule 00 :00 , daily. unspecified Start on whether 01/12/2022. lower urinary tract symptoms present tamsulosin 2021- No Benign .4mg QD Take 1 Momin rris (FLOMAX) 01-12 prostatic capsule by [facility] 0.4 mg 00:00: 00:00 hyperplasia mouth capsule 00 :00 , daily. unspecified Start on whether 01/12/2022. lower urinary tract symptoms present tamsulosin 2021- No Benign .4mg QD Take 1 Momin rris (FLOMAX) 01-12 prostatic capsule by [facility] 0.4 mg 00:00: 00:00 hyperplasia mouth capsule 00 :00 , daily. unspecified Start on whether 01/12/2022. lower urinary tract symptoms present tamsulosin 2021- No Benign .4mg QD Take 1 Momin rris (FLOMAX) 01-12-31 prostatic capsule by [facility] 0.4 mg 00:00: 00:00 hyperplasia mouth capsule 00 :00 , daily. unspecified Start on whether 01/12/2022. lower urinary tract symptoms present tamsulosin 2021- No Benign .4mg QD Take 1 Momin rris (FLOMAX) 01-12 prostatic capsule by [facility] 0.4 mg 00:00: 00:00 hyperplasia mouth capsule 00 :00 , daily. unspecified Start on whether 01/12/2022. lower urinary tract symptoms present tamsulosin 2021-0 2021- No Benign .4mg QD Take 1 Momin rris (FLOMAX) 01-12 prostatic capsule by [facility] 0.4 mg 00:00: 00:00 hyperplasia mouth capsule 00 :00 , daily. unspecified Start on whether 01/12/2022. lower urinary tract symptoms present tamsulosin 2021-0 2021- No Benign .4mg QD Take 1 Momin rris (FLOMAX) 01-12 prostatic capsule by [facility] 0.4 mg 00:00: 00:00 hyperplasia mouth capsule 00 :00 , daily. unspecified Start on whether 01/12/2022. lower urinary tract symptoms present tamsulosin 2021-0 2021- No Benign .4mg QD Take 1 Momin rris (FLOMAX) 01-12 prostatic capsule by [facility] [facility] 0.4 mg 00:00: 00:00 hyperplasia mouth capsule 00 :00 , daily. unspecified Start on whether 01/12/2022. lower urinary tract symptoms present tamsulosin 2021-0 2021- No Benign .4mg QD Take 1 Momin rris (FLOMAX) 01-12 prostatic capsule by [facility] 0.4 mg 00:00: 00:00 hyperplasia mouth capsule [...] n (DAILY 04-14 abuse, in tablet by Morgan Everett VITMorgan Everett) 00:00: 00:00 remission mouth tablet 00 :00 [...] (DAILY 04-14 05-21 abuse, in tablet by Morgan Everett VITES) 00:00: 00:00 remission mouth tablet 00 :00 daily. thiamine, 2021- No Alcohol 100mg QD Take 1 H arris B-1, 100 mg 04-14 05-21 abuse, in tablet by Health tablet 00:00: 00:00 remission mouth 00 :00 daily. multivitami 2021- No Alcohol 1{tbl} QD Take 1 Lynne n (DAILY 04-14- abuse, in tablet by Morgan Everett VITMorgan Everett) 00:00: 00:00 remission mouth tablet 00 :00 [...] (DAILY 04-14 05-21 abuse, in tablet by Morgan Everett VITES) 00:00: 00:00 remission mouth tablet 00 [...] (DAILY 04-14 05-21 abuse, in tablet by Morgan Everett VITMorgan Everett) 00:00: 00:00 remission mouth tablet 00 :00 daily. 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 multivitami 2021- No Alcohol 1{tbl} QD Take 1 Lynne n (DAILY 8 05-21 abuse, in tablet by Morgan Everett VITES) 00:00: 00:00 remission mouth tablet 00 :00 daily. 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 multivitami 2021- No Alcohol 1{tbl} QD Take 1 Lynne n (DAILY 04-14 05-21 abuse, in tablet by Morgan Everett VITMorgan Everett) 00:00: 00:00 remission mouth tablet 00 :00 daily. 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 multivitami 2021- No Alcohol 1{tbl} QD Take 1 Lynne n (DAILY 8- 05-21 abuse, in tablet by Morgan Everett VITMorgan Everett) 00:00: 00:00 remission mouth tablet 00 :00 [...] (DAILY 04-14 05-21 abuse, in tablet by [employer]) 00:00: 00:00 remission mouth tablet 00 :00 daily. thiamine, 2021- No Alcohol 100mg QD Take 1 H arris B-1, 100 mg 04-14-21 abuse, in tablet by Health tablet 00:00: 00:00 remission mouth 00 :00 daily. multivitami 2021- No Alcohol 1{tbl} QD Take 1 Lynne n (DAILY 04-14-21 abuse, in tablet by Morgan Everett VITMorgan Everett) 00:00: 00:00 remission mouth tablet 00 :00 [...] (DAILY 8 05-21 abuse, in tablet by Morgan Everett VITMorgan Everett) 00:00: 00:00 remission mouth tablet 00 :00 daily. 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 multivitami 2021- No Alcohol 1{tbl} QD Take 1 Lynne n (DAILY 04-14 abuse, in tablet by [employer]) 00:00: 00:00 remission mouth tablet 00 :00 daily. Immunizations Ordered Immunization Filled Immunization Date Status Commen Source Name Name PPD 2017-04-14 Completed Lynne [...] Systolic blood 2022-03-13 15:33:00 94 mm[Hg] [facility] pressure Diastolic blood 2022-03-13 15:33:00 62 mm[Hg] [facility] Heart rate 2022-03-13 15:33:00 109 /min [facility] Body temperature 2022-03-13 15:33:00 36.67 T[facility] Respiratory rate 2022-03-13 15:33:00 20 /min [facility] Body height 2022-03-13 15:33:00 185.4 cm [facility] Body weight 2022-03-13 15:33:00 66.679 kg [facility] ealt BMI 2022-03-13 15:33:00 19.39 kg/m2 [facility] Oxygen saturation in 2022-03-13 15:33:00 100 /min [facility] Arterial blood by Pulse oximetry Systolic blood 2022-03-09 11:00:00 107 mm[Hg] [facility] Diastolic blood 2022-03-09 11:00:00 66 mm[Hg] [facility] Heart rate 2022-03-09 11:00:00 58 /min [facility] Body temperature 2022-03-09 11:00:00 36.22 Tasia [facility] Respiratory rate 2022-03-09 11:00:00 16 /min [facility] Oxygen saturation in 2022-03-09 11:00:00 100 /min [facility] Arterial blood by Medical Ce nter Pulse oximetry Body height 2022-03-06 12:05:00 185.4 cm [facility] Body weight 2022-03-06 12:05:00 65.772 kg [facility] BMI 2022-03-06 12:05:00 19.13 kg/m2 [facility] Procedures Procedure Date / Time Performing Clinician Source Performed BASIC METABOLIC PANEL 2022-03-07 05:51:00 Romie Kuo [facility] HEPATIC FUNCTION PANEL 2022-03-07 05:51:00 Romie Kuo [facility] CBC W/PLT COUNT & AUTO 2022-03-07 05:51:00 Romie Kuo [facility] CBC W/PLT COUNT & AUTO 2022-03-07 05:51:00 Romie Kuo [facility] US RENAL COMPLETE 2022-03-06 18:23:00 Romie Kuo [facility] SARS-COV2/RT-PCR ([facility] 2022-03-06 17:36:[address] [facility] REF LABS) [facility] TSH/FREE T4 IF INDICATED 2022-03-06 14:18[facility] 2022-03-06 14:18:00 Aryan Tello [facility] ED ECG INTERPRETATION 2022-03-06 13:48:12 [facility] VIEW PORTABLE 2022-03-06 13:42:[address] [facility] / BEDSIDE [facility] B-TYPE NATRIURETIC FACTOR 2022-03-06 13:23:00 Aryan Tello [facility] (BNP) [facility] CBC W/PLT COUNT & AUTO 2022-03-06 13:23:00 Aryan Tello [facility] COMPREHENSIVE METABOLIC 2022-03-06 13:23:00 Aryan Tello [facility] HIGH SENSITIVITY TROPONIN 2022-03-06 13:23:00 Aryan Tello I [facility] MAGNESIUM 2022-03-06 13:23:00 Aryan Tello [facility] PHOSPHORUS 2022-03-06 13:23:00 Aryan Tello [facility] LACTIC ACID, VENOUS 2022-03-06 13:23:[address] [facility] CREATINE KINASE (CK) 2022-03-06 13:23:00 [facility] W/[facility]T [facility] & AUTO 2022-03-06 13:23:00 Aryan Tello [facility] ECG 12-LEAD 2022-03-06 12:12:56 Unknown, Hl7 Doctor [facility] ECG 12-LEAD 2022-03-06 12:12:56 Unknown, Hl7 Doctor [facility] ECG 12-LEAD 2022-03-06 12:12:56 Unknown, Hl7 Doctor [facility] EKG-SCANNED 2022-03-06 00:00:00 Provider, Jacqui [facility] CBC (WITHOUT 2022-02-20 05:10:00 Rufino Lazaro DIFFERENTIAL) BASIC METABOLIC PANEL 2022-02-20 05:10:00 Rufino Lazaro Health MAGNESIUM 2022-02-20 05:10:00 Rufino Lazaro PHOSPHORUS 2022-02-20 05:10:00 Rufino Lazaro INFUSION PUMP 2022-02-19 19:03:50 Rufino Lazaro COMPREHENSIVE METABOLIC 2022-02-19 06:35:00 Kobe Blake [facility] PANEL CBC/DIFF 2022-02-19 06:35:00 Kobe Blake alth PHOSPHORUS 2022-02-19 06:35:00 Kobe Blake alth CBC 2022-02-19 06:35:00 Kobe Blake alth URINALYSIS W/REFLEX TO 2022-02-19 00:34:00 Kobe Blake [facility] URINE CULTURE URINALYSIS 2022-02-19 00:34:00 Chadd Palacios URINE CULTURE COLLECTION 2022-02-19 00:34:00 Chadd Palacios [facility] KIT SARS-COV-2, FLU A/B, RSV 2022-02-18 19:00:00 Chadd Palacios [facility] CORONAVIRUS, COVID-19, 2022-02-18 19:00:00 Chadd Palacios [facility] OLENA XRAY CHEST 1 VIEW 2022-02-18 15:23:00 Roz Scales [facility] CONSULT CLINICAL CASE 2022-02-18 14:50:50 Roz Scales Health MANAGEMENT (RN/SW) CBC/DIFF 2022-02-18 14:16:00 [facility] BASIC METABOLIC PANEL 2022-02-18 14:16:00 Albab, Susana [facility] MAGNESIUM 2022-02-18 14:16:00 Albab, Susana [facility] PHOSPHORUS 2022-02-18 14:16:00 Albab, Susana [facility] CREATINE KINASE (CK) 2022-02-18 14:16:00 AlbabSusana [facility] CBC 2022-02-18 14:16:00 Albab, Susana [facility] BASIC METABOLIC PANEL 2022-02-11 03:34:00 YinMeghan [facility] MAGNESIUM 2022-02-11 03:34:00 [place] [facility] PHOSPHORUS 2022-02-11 03:34:00 [place]apinTeresa [facility] th CBC (WITHOUT 2022-02-11 03:34:00 [place], Teresa [facility] DIFFERENTIAL) CBC/DIFF 2022-02-10 03:39:00 [facility] PANEL 2022-02-10 03:39:00 [facility] 2022-02-10 03:39:00 [facility] THYROID STIMULATING 2022-02-10 03:39:00 [facility] HORMONE (TSH) FREE T4 2022-02-10 03:39:00 JamilahpinTeresa [facility] th CBC/DIFF 2022-02-09 04:38:00 [facility] BASIC METABOLIC PANEL 2022-02-09 04:38:00 [facility] 2022-02-09 04:38:00 [facility] CORTISOL, TOTAL 2022-02-08 11:37:00 Mari Meier H ealth GLUCOSE POC 2022-02-08 08:07:00 [facility] CBC (WITHOUT 2022-02-08 04:00:00 Mari Meier H ealth DIFFERENTIAL) COMPREHENSIVE METABOLIC 2022-02-08 04:00:00 Mari Meier Health PANEL PHOSPHORUS 2022-02-08 04:00:00 Mari Meier deborah MAGNESIUM 2022-02-08 04:00:00 Mari Meier PT/INR 2022-02-08 04:00:00 Mari Meier deborah URINALYSIS W/REFLEX TO 2022-02-07 18:06:00 GaleAllyn shieldsbrenda Guadarrama [facility] URINE CULTURE URINALYSIS 2022-02-07 18:06:00 Areli Arciniega alth URINE CULTURE COLLECTION 2022-02-07 18:06:00 Areli Arciniega [facility] KIT ELECTROLYTES, URINE 2022-02-07 18:06:00 Jyoti Carrillo [facility] OSMOLALITY, URINE 2022-02-07 18:06:00 [facility] SARS-COV-2, FLU A/B, RSV 2022-02-07 18:05:00 Jyoti Carrillo [facility] CORONAVIRUS, COVID-19, 2022-02-07 18:05:00 Jyoti Carrillo [facility] NUTRITION CONSULT 2022-02-07 17:43:36 Mari Meier [facility] ASSESSMENT BASIC METABOLIC PANEL 2022-02-07 17:18:00 Jyoti Carrillo [facility] LACTIC ACID 2022-02-07 14:04:00 Areli Arciniega alth CBC/DIFF 2022-02-07 14:03:00 Areli Arciniega alth BASIC METABOLIC PANEL 2022-02-07 14:03:00 Areli Arciniega [facility] LIVER PROFILE 2022-02-07 14:03:00 Areli Arciniega alth LIPASE 2022-02-07 14:03:00 Areli Arciniega alth MAGNESIUM 2022-02-07 14:03:00 Areli Arciniega alth PHOSPHORUS 2022-02-07 14:03:00 Areli Arciniega alth TROPONIN I 2022-02-07 14:03:00 Areli Arciniega alth CBC 2022-02-07 14:03:00 Areli Arciniega [facility] 12 LEAD EKG 2022-01-21 15:46:10 Ori Goldberg [facility] CBC/DIFF 2022-01-21 04:11:00 LindseySteve [facility] MAGNESIUM 2022-01-21 04:11:00 LindseySteve [facility] PHOSPHORUS 2022-01-21 04:11:00 LindseyNoeh P [facility] BASIC METABOLIC PANEL 2022-01-21 04:11:00 Ori Goldberg [facility] CBC 2022-01-21 04:11:00 LindseySteve [facility] CBC/DIFF 2022-01-20 04:37:00 LindseySteve [facility] MAGNESIUM 2022-01-20 04:37:00 LindseySteve [facility] PHOSPHORUS 2022-01-20 04:37:00 LindseySteve [facility] BASIC METABOLIC PANEL 2022-01-20 04:37:00 Steve Lucas [facility] CBC 2022-01-20 04:37:00 LindseySteve [facility] MAGNESIUM 2022-01-19 18:09:00 [facility] Healthcare[facility]eh [facility] PHOSPHORUS 2022-01-19 18:09:00 LindseyNoeh P [facility] BASIC METABOLIC PANEL 2022-01-19 18:09:00 Paladin HealthcareSteve P [facility] CORTISOL, TOTAL 2022-01-19 18:09:00 Karin Bassett [facility] URINALYSIS W/REFLEX TO 2022-01-19 17:22:00 LindseySteve child [facility] URINE CULTURE URINALYSIS 2022-01-19 17:22:00 Paladin HealthcareSteve [facility] URINE CULTURE COLLECTION 2022-01-19 17:22:00 Steve Lucas [facility] KIT COMPUTED TOMOGRAPHY 2022-01-19 13:29:00 Steve Lucas [facility] ABDOMEN AND PELVIS WITHOUT CONTRAST CBC/DIFF 2022-01-19 04:44:00 LindseySteve [facility] CBC 2022-01-19 04:44:00 Lindsey, Steve P [facility] DIFFERENTIAL, MANUAL (NO 2022-01-19 04:44:00 Steve Lucas [facility]OLOG[facility] BASIC METABOLIC PANEL 2022-01-18 17:15:00 [facility] CBC/DIFF 2022-01-18 04:46:00 Steve Lucas [facility] MAGNESIUM 2022-01-18 04:46:00 Steve Lucas [facility] PHOSPHORUS 2022-01-18 04:46:00 Steve Lucas [facility] BASIC METABOLIC PANEL 2022-01-18 04:46:00 Ori Goldberg [facility] CBC 2022-01-18 04:46:00 Steve Lucas [facility] HIV AG/AB COMBO ROUTINE 2022-01-18 04:46:00 Karin Bassett [facility] SCREENING ENTERIC PATHOGENS NUCLEIC 2022-01-18 03:25:00 Karin Bassett [facility] ACID TEST BASIC METABOLIC PANEL 2022-01-18 00:29:00 Ori Goldberg [facility] BASIC METABOLIC PANEL 2022-01-17 17:07:00 LindseyNoeh P [facility] BASIC METABOLIC PANEL 2022-01-17 13:15:00 [facility] CALPROTECTIN FECAL 2022-01-17 12:38:00 Setve Lucas [facility] ealth FECAL LEUKOCYTES 2022-01-17 12:38:00 Steve Lucas [facility] lt T-TRANSGLUTAMINASE IGA 2022-01-17 12:22:00 Steve [facility] BASIC METABOLIC PANEL 2022-01-17 08:51:00 LindseyNoeh P [facility] BASIC METABOLIC PANEL 2022-01-17 04:47:00 Steve [facility] CBC/DIFF 2022-01-17 04:47:00 Steve Lucas [facility] MAGNESIUM 2022-01-17 04:47:00 Steve Lucas [facility] PHOSPHORUS 2022-01-17 04:47:00 Steve Lucas [facility] CBC 2022-01-17 04:47:00 LindseySteve [facility] BASIC METABOLIC PANEL 2022-01-17 00:08:00 Steve Lucas [facility] 12 LEAD EKG 2022-01-16 21:23:25 LindseySteve [facility] BASIC METABOLIC PANEL 2022-01-16 21:08:00 Steve Lucas s [facility] XRAY CHEST 2 VIEWS 2022-01-16 19:56:00 LindseySteve [facility] ealth IP CONSULT TO PHYSICAL 2022-01-16 19:17:17 LindseySteve is Health THERAPY CONSULT CLINICAL CASE 2022-01-16 19:17:17 Steve Lucas s Health MANAGEMENT (RN/SW) SEQUENTIAL COMPRESSION 2022-01-16 19:17:17 LindseySteve is Health PUMP SEQUENTIAL COMPRESSION 2022-01-16 19:17:17 Steve Lucas [facility] PUMP SODIUM, URINE, RANDOM 2022-01-16 16:00:00 NievesKevin barreto [facility] CREATININE, URINE, RANDOM 2022-01-16 16:00:00 NievesKevin barreto [facility] OSMOLALITY, URINE 2022-01-16 16:00:00 NievesKevin barreto [facility] SARS-COV-2, FLU A/B, RSV 2022-01-16 15:20:00 NievesKevin barreto [facility] CORONAVIRUS, COVID-19, 2022-01-16 15:20:00 Kevin Nieves [facility] OLENA FOLIC ACID 2022-01-16 14:13:00 Kevin Nieves [facility] ealt CREATININE POC 2022-01-16 13:55:00 Raymon Martin h BMP POC 2022-01-16 13:46:00 Raymon Martin CBC/DIFF 2022-01-16 12:12:00 Raymon Martin h CBC 2022-01-16 12:12:00 Raymon Martin h BASIC METABOLIC PANEL 2022-01-16 12:11:00 Sadiq Vargas [facility] MAGNESIUM 2022-01-16 12:11:00 Sadiq Vargas [facility] VITAMIN B12 2022-01-16 12:11:00 Kevin Nieves ealth OSMOLALITY,SERUM 2022-01-16 12:11:00 Kevin Nieves [facility] INFUSION PUMP 2022-01-11 09:21:05 Helene Ring [facility] GLUCOSE POC 2022-01-11 07:54:00 Helene Ring [facility] BASIC METABOLIC PANEL 2022-01-11 04:07:00 Merissa Richards [facility] MAGNESIUM 2022-01-11 04:07:00 [facility] 2022-01-11 04:07:00 [facility] CBC/DIFF 2022-01-11 04:06:00 Merissa Richards [facility] h IRON PROFILE 2022-01-11 04:06:00 Mer[facility] FOLIC ACID 2022-01-11 04:06:00 Merissa [facility] CBC 2022-01-11 04:06:00 Merissa Richards [facility] h GLUCOSE POC 2022-01-10 18:16:00 Helene Ring [facility] URINALYSIS 2022-01-10 16:10:00 Merissa Richards [facility] h URINALYSIS 2022-01-10 16:10:00 [facility] SARS-COV-2, FLU A/B, RSV 2022-01-10 15:54:00 Merissa Richards [facility] CORONAVIRUS, COVID-19, 2022-01-10 15:54:00 Antoine Hester [facility] OLENA BASIC METABOLIC PANEL 2022-01-10 15:54:00 Merissa Richards [facility] VITAMIN B12 2022-01-10 15:54:00 Mer[facility] VBG POC 2022-01-10 11:14:00 [facility] CBC/DIFF 2022-01-10 11:13:00 [facility] BAS[facility] PANEL 2022-01-10 11:13:00 Antoine Hester [facility] LACTIC ACID 2022-01-10 11:13:00 Antoine Hester [facility] h CBC 2022-01-10 11:13:00 Antoine Hester [facility] LIVER PROFILE 2022-01-10 11:13:00 Merissa Richards Felicita [facility] CK, TOTAL 2022-01-10 11:13:00 Merissa Richards [facility] h FERRITIN 2022-01-10 11:13:00 RichardsMerissa [facility] CREATINE KINASE MB (CKMB) 2022-01-10 11:13:00 FerchoMerissa Felicita [facility] XRAY CHEST 2 VIEWS 2022-01-08 21:50:14 Tanja Sebastian [facility] CBC/DIFF 2022-01-08 21:27:00 Tanja Sebastian [facility] BASIC METABOLIC PANEL 2022-01-08 21:27:00 Tanja Sebastian [facility] LIVER PROFILE 2022-01-08 21:27:00 Tanja Sebastian [facility] CK, TOTAL 2022-01-08 21:27:00 Randa Sebastianandra [facility] TROPONIN I 2022-01-08 21:27:00 Tanja Sebastian [facility] CBC 2022-01-08 21:27:00 Randa Sebastianandra Watson [facility] CREATINE KINASE MB (CKMB) 2022-01-08 21:27:00 Randa Sebastianandra [facility] 12 LEAD EKG 2022-01-08 20:59:56 Randa Sebastianandra [facility] [id number] 2020-01-09 00:00:[id number] [facility] Plan of Care Planned Activity Planned Date Details Comments Source Future Scheduled 2029-03-23 Screening for malignant [facility] Test 00:00:00 neoplasm of colon [facility] (procedure) [code = 093318488] Future Scheduled 2029-03-23 Screening for malignant [facility] Test 00:00:00 neoplasm of colon [facility] (procedure) [code = 087763488] Future Scheduled 2029-03-23 Screening for malignant [facility] Test 00:00:00 neoplasm of colon [facility] (procedure) [code = [id number]] Future Scheduled 2029-03-23 Screening for malignant [facility] Test 00:00:00 neoplasm of colon [facility] (procedure) [code = 512918901] Future Scheduled 2029-03-23 Screening for malignant [facility] Test 00:00:00 neoplasm of colon [facility] (procedure) [code = 900847714] Future Scheduled 2029-03-23 Screening for malignant [facility] Test 00:00:00 neoplasm of colon [facility] (procedure) [code = 051167523] Future Scheduled 2029-03-23 Screening for malignant [facility] Test 00:00:00 neoplasm of colon [facility] (procedure) [code = 804942643] Future Scheduled 2029-03-23 Screening for malignant [facility] Test 00:00:00 neoplasm of colon [facility] (procedure) [code = 818845937] Future Scheduled 2029-03-23 Screening for malignant [facility] Test 00:00:00 neoplasm of colon [facility] (procedure) [code = 290172410] Future Scheduled 2029-03-23 Screening for malignant [facility] Test 00:00:00 neoplasm of colon [facility] (procedure) [code = 822534613] Future Scheduled 2029-03-23 Screening for malignant [facility] Test 00:00:00 neoplasm of colon Medical Ce [facility] (procedure) [code = 493923813] Future Scheduled 2029-03-23 Screening for malignant [facility] Test 00:00:00 neoplasm of colon Medical Ce [facility] (procedure) [code = 731433658] Future Scheduled 2029-03-23 Screening for malignant [facility] Test 00:00:00 neoplasm of colon Medical Ce [facility] (procedure) [code = 914858474] Future Scheduled 2029-03-23 Screening for malignant [facility] Test 00:00:00 neoplasm of colon Medical Ce [facility] (procedure) [code = 168454241] Future Scheduled 2029-03-23 Screening for malignant [facility] Test 00:00:00 neoplasm of colon Medical Ce [facility] (procedure) [code = 056163341] Future Scheduled 2029-03-23 Screening for malignant [facility] Test 00:00:00 neoplasm of colon Medical Ce [facility] (procedure) [code = 521291492] Future Scheduled 2029-03-23 Screening for malignant [facility] Test 00:00:00 neoplasm of colon Medical Ce [facility] (procedure) [code = 219513615] Future Scheduled 2029-03-23 Screening for malignant [facility] Test 00:00:00 neoplasm of colon Medical Ce [facility] (procedure) [code = 166400421] Future Scheduled 2029-03-23 Screening for malignant [facility] Test 00:00:00 neoplasm of colon Medical Ce [facility] (procedure) [code = 638690754] Future Scheduled 2029-03-23 Screening for malignant [facility] Test 00:00:00 neoplasm of colon Medical Ce [facility]ter (procedure) [code = 369324578] Future Scheduled 2029-03-23 Screening for malignant [facility] Test 00:00:00 neoplasm of colon Medical Ce [facility]ter (procedure) [code = 267757944] Future Scheduled 2029-03-23 Screening for malignant [facility] Test 00:00:00 neoplasm of colon Medical Ce [facility]ter (procedure) [code = 838765917] Future Scheduled 2029-03-23 Screening for malignant [facility] Test 00:00:00 neoplasm of colon Medical Ce [facility]ter (procedure) [code = 354373361] Future Scheduled 2029-03-23 Screening for malignant [facility] Test 00:00:00 neoplasm of colon Medical Ce [facility]ter (procedure) [code = 517701002] Future Scheduled 2029-03-23 Screening for malignant [facility] Test 00:00:00 neoplasm of colon Medical Ce [facility]ter (procedure) [code = 348625546] Future Scheduled 2029-03-23 Screening for malignant [facility] Test 00:00:00 neoplasm of colon Medical Ce nter (procedure) [code = 927198360] Future Scheduled 2029-03-23 Screening for malignant [facility] Test 00:00:00 neoplasm of colon Medical Ce [facility]ter (procedure) [code = 682419594] Future Scheduled 2029-03-23 Screening for malignant [facility] Test 00:00:00 neoplasm of colon Medical Ce nter (procedure) [code = 513075350] Future Scheduled 2029-03-23 Screening for malignant [facility] Test 00:00:00 neoplasm of colon Medical Ce [facility]ter (procedure) [code = 234658934] Future Scheduled 2029-03-23 Screening for malignant [facility] Test 00:00:00 neoplasm of colon Medical Ce [facility]ter (procedure) [code = 704659852] Future Scheduled 2029-03-23 Screening for malignant [facility] Test 00:00:00 neoplasm of colon Medical Ce [facility]ter (procedure) [code = 224518981] Future Scheduled 2029-03-23 Screening for malignant [facility] Test 00:00:00 neoplasm of colon Medical Ce nter (procedure) [code = 451510610] Future Scheduled 2029-03-23 Screening for malignant [facility] Test 00:00:00 neoplasm of colon Medical Ce nter (procedure) [code = 466582265] Future Scheduled 2029-03-23 Screening for malignant [facility] Test 00:00:00 neoplasm of colon Medical Ce nter (procedure) [code = 403761615] Future Scheduled 2029-03-23 Screening for malignant [facility] Test 00:00:00 neoplasm of colon Medical Ce nter (procedure) [code = 588318382] Future Scheduled 2029-03-23 Screening for malignant [facility] Test 00:00:00 neoplasm of colon Medical Ce nter (procedure) [code = 707900517] Future Scheduled 2029-03-23 Screening for malignant [facility] Test 00:00:00 neoplasm of colon Medical Ce nter (procedure) [code = 258928044] Future Scheduled 2029-03-23 Screening for malignant [facility] 00:00:00 neoplasm of colon Medical Ce nter (procedure) [code = 249891552] Future Scheduled 2029-03-23 Screening for malignant [facility] 00:00:00 neoplasm of colon Medical Ce nter (procedure) [code = 570783969] Future Scheduled 2022-08-[address] [facility] 00:00:00 neoplasm of colon (procedure) [code = 871438478] Future Scheduled 2020-02-14 Screening for malignant [facility] 00:00:00 neoplasm of colon (procedure) [code = 050376468] Future Scheduled 2020-02-14 Screening for malignant [facility] 00:00:00 neoplasm of colon (procedure) [code = 345057100] Future Scheduled 2020-02-14 Screening for malignant [facility] 00:00:00 neoplasm of colon (procedure) [code = 208133040] Future Scheduled 2020-02-14 Screening for malignant [facility] 00:00:00 neoplasm of colon (procedure) [code = 832205770] Future Scheduled 2020-02-14 Screening for malignant [facility] 00:00:00 neoplasm of colon (procedure) [code = 698661481] Future Scheduled 2020-02-14 Screening for malignant [facility] 00:00:00 neoplasm of colon (procedure) [code = 618374298] Future Scheduled 2020-02-14 Screening for malignant [facility] 00:00:00 neoplasm of colon (procedure) [code = 063673994] Future Scheduled 2020-02-14 Screening for malignant [facility] 00:00:00 neoplasm of colon (procedure) [code = 526704215] Future Scheduled 2020-02-14 Screening for malignant [facility] 00:00:00 neoplasm of colon (procedure) [code = 961138340] Future Scheduled 2020-02-14 Screening for malignant [facility] 00:00:00 neoplasm of colon (procedure) [code = 231785596] Future Scheduled 2020-02-14 Screening for malignant [facility] 00:00:00 neoplasm of colon (procedure) [code = 480053792] Future Scheduled 2020-02-14 Screening for malignant [facility] 00:00:00 neoplasm of colon (procedure) [code = 895610494] Future Scheduled 2020-02-14 Screening for malignant [facility] 00:00:00 neoplasm of colon (procedure) [code = 764331516] Future Scheduled 2020-02-14 Screening for malignant [facility] 00:00:00 neoplasm of colon (procedure) [code = 215569089] Future Scheduled 2020-02-14 Screening for malignant [facility] 00:00:00 neoplasm of colon (procedure) [code = 458572594] Future Scheduled 2020-02-14 Screening for malignant [facility] 00:00:00 neoplasm of colon (procedure) [code = 288433513] Future Scheduled 2020-02-14 SHINGLES VACCINES ([address] [facility] 00:00:00 2) [code = [facility] VACCINES (1 of 2)] Future Scheduled 2020-02-14 Screening for malignant [facility] 00:00:00 neoplasm of colon (procedure) [code = 558982009] Future Scheduled 2020-02-14 SHINGLES VACCINES (1 of [...] [facility] 00:00:00 [code = 35619843] Medical Ce nter Future Scheduled 2005 Lipid panel (procedure) [facility] 00:00:00 [code = 27747975] Medical Ce nter Future Scheduled 2005 Lipid panel (procedure) [facility] 00:00:00 [code = 45153344] Medical Ce nter Future Scheduled 2005 Lipid panel (procedure) [facility] 00:00:00 [code = 83603667] Medical Ce nter Future Scheduled 2005 Lipid panel (procedure) [facility] 00:00:00 [code = 26164642] Medical Ce nter Future Scheduled 2005 Lipid panel (procedure) [facility] 00:00:00 [code = 83603570] Medical Ce nter Future Scheduled 2005 Lipid panel (procedure) [facility] 00:00:00 [code = 20861819] Medical Ce nter Future Scheduled 2005 Lipid panel (procedure) [facility] 00:00:00 [code = 58415835] Medical Ce nter Future Scheduled 2005 Lipid panel (procedure) [facility] 00:00:00 [code = 97992452] Medical Ce nter Future Scheduled 2005 Lipid panel (procedure) [facility] 00:00:00 [code = 97946064] Medical Ce nter Future Scheduled 2005 Lipid panel (procedure) [facility] 00:00:00 [code = 14134097] Medical Ce nter Future Scheduled 2005 Lipid panel (procedure) [facility] 00:00:00 [code = 04206138] Medical Ce nter Future Scheduled 2005 Lipid panel (procedure) [facility] 00:00:00 [code = 89647794] Medical Ce nter Future Scheduled 2005 Lipid panel (procedure) [facility] 00:00:00 [code = 36679027] Medical Ce nter Future Scheduled 2005 Lipid panel (procedure) [facility] 00:00:00 [code = 44407013] Medical Ce nter Future Scheduled 2005 Lipid panel (procedure) [facility] 00:00:00 [code = 84783407] Medical Ce nter Future Scheduled 2005 Lipid panel (procedure) [facility] 00:00:00 [code = 93035306] Medical Ce nter Future Scheduled 2005 Lipid panel (procedure) [facility] 00:00:00 [code = 46968192] Medical Ce nter Future Scheduled 2005 Lipid panel (procedure) [facility] 00:00:00 [code = 58522139] Medical Ce nter Future Scheduled 2005 Lipid panel (procedure) [facility] 00:00:00 [code = 95734573] Medical Ce nter Future Scheduled 1989 DTAP/TDAP/TD [...] - Tdap)] Future Scheduled 1989 DTAP/TDAP/TD [facility] (1 - [...] (#1)] Future Scheduled 1970 COVID-19 Vaccine (#1) [facility]00 [code = COVID-19 [...] [facility] 00[facility] [code = CT Colonography [facility] (combo)] Future Scheduled 1970 Screening for malignant [facility] 00:00:00 neoplasm of colon Medical Ce nter (procedure) [code = 434386637] Future Scheduled 1970 Screening for malignant [facility] 00:00:00 neoplasm of colon Medical Ce nter (procedure) [code = 060340708] Future Scheduled 1970 Sigmoidoscopy [facility]code = [facility]] [facility] Cent[facility] Future Scheduled 1970 Screening for malignant [facility] 00:00:00 neoplasm of colon Medical Ce nter (procedure) [code = 385703277] Future Scheduled 1970 Screening for malignant [facility] 00:00:00 neoplasm of colon Medical Ce nter (procedure) [code = 721301029] Future Scheduled 1970 Sigmoidoscopy [code = [facility] S[facility]oscopy] Medical Angele r Future Scheduled 1970 CT Colonography (combo) [facility] 00:00:00 [code = [facility] Future Scheduled 1970 Screening for malignant [facility] 00:00:00 neoplasm of colon Medical Ce nter (procedure) [code = 118831301] Future Scheduled 1970 Screening for malignant [facility] 00:00:00 neoplasm of colon Medical Ce nter (procedure) [code = 080156816] Future Scheduled 1970 Sigmoidoscopy [facility]code = [facility] S[facility]oscopy] Medical Angele r Future Scheduled 1970 CT Colonography (combo) [facility] 00:00:00 [code = [facility])] Future Scheduled 1970 Screening for malignant [facility] 00:00:00 neoplasm of colon Medical Ce nter (procedure) [code = 425346967] Future Scheduled 1970 Screening for malignant [facility] 00:00:00 neoplasm of colon Medical Ce nter (procedure) [code = 200187474] Future Scheduled 1970 Sigmoidoscopy [code = [facility] S[facility]oidoscopy] Medical Seda r Future Scheduled 1970 CT Colonography (combo) [facility] 00:00:00 [code = [facility])] Future Scheduled 1970 Screening for malignant [facility] 00:00:00 neoplasm of colon Medical Ce nter (procedure) [code = 421474444] Future Scheduled 1970 Screening for malignant [facility] 00:00:00 neoplasm of colon Medical Ce nter (procedure) [code = 651760413] Future Scheduled 1970 Sigmoidoscopy [facility]code = [facility] S[facility]oidoscopy] Medical Seda r Future Scheduled 1970 CT Colonography (combo) [facility] 00:00:00 [code = [facility])] Future Scheduled 1970 Screening for malignant [facility] 00:00:00 neoplasm of colon Medical Ce nter (procedure) [code = 516787901] Future Scheduled 1970 Screening for malignant [facility] 00:00:00 neoplasm of colon Medical Ce nter (procedure) [code = 511495734] Future Scheduled 1970 Sigmoidoscopy [facility]code = [facility] S[facility]oscopy] Medical Cente r Future Scheduled 1970 CT Colonography (combo) [facility] 00:00:00 [code = [facility] ([facility])] Future Scheduled 1970 Screening for malignant [facility] 00:00:00 neoplasm of colon Medical Ce nter (procedure) [code = 684680186] Future Scheduled 1970 Screening for malignant [facility] 00:00:00 neoplasm of colon Medical Ce nter (procedure) [code = 636882665] Future Scheduled 1970 Sigmoidoscopy [facility]code = [facility] S[facility]oscopy] Medical Cente r Future Scheduled 1970 CT Colonography (combo) [facility] 00:00:00 [code = [facility] ([facility])] Future Scheduled 1970 Screening for malignant [facility] 00:00:00 neoplasm of colon Medical Ce nter (procedure) [code = 701821430] Future Scheduled 1970 Screening for malignant [facility] 00:00:00 neoplasm of colon Medical Ce nter (procedure) [code = 879172028] Future Scheduled 1970 Sigmoidoscopy [facility]code = [facility]oscopy] Medical Cent[facility] r Future Scheduled 1970 CT Colonography (combo) [facility] 00:00:00 [code = CT [facility] ([facility])] Future Scheduled 1970 Screening for malignant [facility] 00:00:00 neoplasm of colon Medical Ce nter (procedure) [code = 095845518] Future Scheduled 1970 Screening for malignant [facility] 00:00:00 neoplasm of colon Medical Ce nter (procedure) [code = 039278167] Future Scheduled 1970 Sigmoidoscopy [facility]code = [facility] S[facility]oidoscopy] Medical Cente r Future Scheduled 1970 CT Colonography (combo) [facility] 00:00:00 [code = [facility])] Future Scheduled 1970 Screening for malignant [facility] 00:00:00 neoplasm of colon Medical Ce nter (procedure) [code = 945623703] Future Scheduled 1970 Screening for malignant [facility] 00:00:00 neoplasm of colon Medical Ce nter (procedure) [code = 545989703] Future Scheduled 1970 Sigmoidoscopy [facility]code = [facility] S[facility]oidoscopy] Medical Cent[facility] r Future Scheduled 1970 CT Colonography (combo) [facility] 00:00:00 [code = [facility])] Future Scheduled 1970 Screening for malignant [facility] 00:00:00 neoplasm of colon Medical Ce nter (procedure) [code = 913065404] Future Scheduled 1970 Screening for malignant [facility] 00:00:00 neoplasm of colon Medical Ce nter (procedure) [code = 580206207] Future Scheduled 1970 Sigmoidoscopy [facility]code [facility] S[facility]oidoscopy] Medical Angele r Future Scheduled 1970 CT Colonography (combo) [facility] 00:00:00 [code = [facility])] Future Scheduled 1970 Screening for malignant [facility] 00:00:00 neoplasm of colon Medical Ce nter (procedure) [code = 262168644] Future Scheduled 1970 Screening for malignant [facility] 00:00:00 neoplasm of colon Medical Ce nter (procedure) [code = 911714035] Future Scheduled 1970 Sigmoidoscopy [facility]code = [facility] S[facility]oidoscopy] Medical Angele r Future Scheduled 1970 CT Colonography (combo) [facility] 00:00:00 [code = [facility])] Future Scheduled 1970 Screening for malignant [facility] 00:00:00 neoplasm of colon Medical Ce nter (procedure) [code = 925860125] Future Scheduled 1970 Screening for malignant [facility] 00:00:00 neoplasm of colon Medical Ce nter (procedure) [code = 705839615] Future Scheduled 1970 Sigmoidoscopy [facility]code = [facility] S[facility]oidoscopy] Medical Cente r Future Scheduled 1970 CT Colonography (combo) [facility] 00:00:00 [code = [facility])] Future Scheduled 1970 Screening for malignant [facility] 00:00:00 neoplasm of colon Medical Ce nter (procedure) [code = 428535990] Future Scheduled 1970 Screening for malignant [facility] 00:00:00 neoplasm of colon Medical Ce nter (procedure) [code = 761084601] Future Scheduled 1970 Sigmoidoscopy [facility]code = [facility] S[facility]oidoscopy] Medical Cente r Future Scheduled 1970 CT Colonography (combo) [facility] 00:00:00 [code = [facility])] Future Scheduled 1970 Screening for malignant [facility] 00:00:00 neoplasm of colon Medical Ce nter (procedure) [code = 671584935] Future Scheduled 1970 Screening for malignant [facility] 00:00:00 neoplasm of colon Medical Ce nter (procedure) [code = 688584716] Future Scheduled 1970 Sigmoidoscopy [facility]code = [facility] S[facility]oidoscopy] Medical Cente r Future Scheduled 1970 CT Colonography (combo) [facility] 00:00:00 [code = [facility])] Future Scheduled 1970 Screening for malignant [facility] 00:00:00 neoplasm of colon Medical Ce nter (procedure) [code = 428012487] Future Scheduled 1970 Screening for malignant [facility] 00:00:00 neoplasm of colon Medical Ce nter (procedure) [code = 208289718] Future Scheduled 1970 Sigmoidoscopy [facility]code = [facility] S[facility]oidoscopy] Medical Cente r Future Scheduled 1970 CT Colonography (combo) [facility] 00:00:00 [code = [facility])] Future Scheduled 1970 Screening for malignant [facility] 00:00:00 neoplasm of colon Medical Ce nter (procedure) [code = 295981360] Future Scheduled 1970 Screening for malignant [facility] 00:00:00 neoplasm of colon Medical Ce nter (procedure) [code = 719435514] Future Scheduled 1970 Sigmoidoscopy [facility]code = [facility] Sigmoidoscopy] Medical Angele r Future Scheduled 1970 CT Colonography (combo) [facility] 00:00:00 [code = [facility])] Future Scheduled 1970 Screening for malignant [facility] 00:00:00 neoplasm of colon Medical Ce nter (procedure) [code = 513115009] Future Scheduled 1970 Screening for malignant [facility] 00:00:00 neoplasm of colon Medical Ce nter (procedure) [code = 312426537] Future Scheduled 1970 Sigmoidoscopy [facility]code = [facility] Sigmoidoscopy] Medical Angele r Future Scheduled 1970 CT Colonography (combo) [facility] 00:00:00 [code = [facility])] Future Scheduled 1970 Screening for malignant [facility] 00:00:00 neoplasm of colon Medical Ce nter (procedure) [code = 235095459] Future Scheduled 1970 Screening for malignant [facility] 00:00:00 neoplasm of colon Medical Ce nter (procedure) [code = 825059234] Future Scheduled 1970 Sigmoidoscopy [facility]code = [facility] Sigmoidoscopy] Medical Angele r Future Scheduled 1970 CT Colonography (combo) [facility] 00:00:00 [code = [facility] ([facility])] Encounters Start End Encounter Admission Attending Care Care Encounter Source Date/Time Date/Time Type Type Clinicians Facility Department ID 2020-02-23 Inpatient HCAPM LENNY [id number] [facility] 18:42:00 89 [facility] 2020-02-17 Inpatient EM Avtar, HCAPM MAS [id number] [facility] 00:22:00 Oladipo 75 [facility] 2020-01-05 Inpatient UR Eliazar, HCAPM [id number].01 [id number] [facility] 20:23:00 Mark 40 [facility] 2019-12-13 Inpatient HCAMN JULIA [id number] [facility] 17:52:00 47 [facility] 2022-03-29 2022-03-29 Emergency EM Bridgett, HCACL AERS [id number] [facility] 14:26:00 16:45:00 Steve Adams [facility] 2022-03-29 2022-03-29 Emergency EM White, HCACL HCACL [id number] [facility] 14:26:00 16:45:00 Steve Luu06 [facility] 2022-03-25 2022-03-26 Inpatient E RICHARD [facility] MED [id number] BL 13:38:00 10:16:00 , YESSI 2022-03-15 2022-03-18 Emergency E RADHA [facility] MED [id number] [facility] 13:36:00 18:59:00 NELSON 2022-03-13 2022-03-13 Emergency [facility] [id number] [place] 15:33:00 20:25:00 [facility] 2022-03-13 2022-03-13 Emergency [facility] [id number] [place] 15:33:00 20:25:00 [facility] 2022-03-13 2022-03-13 Outpatient RONALD, [facility] [id number] [place] 00:00:00 00:00:00 [facility] 2022-03-06 2022-03-09 Inpatient ER LEÓN EARL [facility] Emergency [id number] [facility] 12:16:00 12:55:00 2022-03-06 2022-03-09 Hospital ER Aryan Tello [facility] [id number] [facility] 12:16:00 12:55:00 Encounter Dee Dee Montalvo Fang-Ying M edical Heinen, [facility] 2022-03-09 [facility] [id number] [facility] 12:16:00 12:55:00 Encounter Dee Dee Montalvo Fang-Ying M edical Heinen, Allison P. [facility] León Bain Colin 2022-03-06 2022-03-06 Outpatient M [facility] [id number] [facility] 00:00:00 23:59:00 Cynthia 2022-03-06 2022-03-06 Orders [facility] [id number] 00:00:00 00:00:00 Only [facility] 2022-03-06 2022-03-06 Travel [facility] [id number] [facility]00 00:00:00 [facility] 2022-03-06 2022-03-06 Orders [facility] [id number] 00:00:00 00:00:00 [facility] 2022-03-06 2022-03-06 Travel [facility] [id number] [facility] 00:00:00 00:00:00 [facility] 2022-02-18 2022-02-20 Emergency Teddy Carbajal [facility] [id number] [place] 13:58:00 11:55:00 Bernabe Calvert Ashish D Cavazos, Roberto H 2022-02-18 2022-02-20 Emergency Raven Teddy [facility] [id number] [place] 13:58:00 11:55:00 Bernabe Calvert Ashish D Cavazos, Roberto H 2022-02-18 2022-02-18 [facility] [id number] [place] 15:19:05 15:23:18 [facility] 2022-02-18 2022-02-18 Outpatient 1 TEJAS [facility] [id number] [place] 13:58:00 13:58:00 [facility] 2022-02-18 2022-02-18 Outpatient DENIZ [facility] [id number] [place] 00:00:00 00:00:00 , OSCAR blanchard 2022-02-07 2022-02-[address] [facility] [id number] [place] 13:40:00 13:22:00 Encounter Rosas Islasashia [facility] 2022-02-07 2022-02-[address] [facility] [id number] [place] 13:40:00 13:22:00 Encounter Meghan Islas [facility] 2022-02-07 2022-02-07 Outpatient 1 MEGHAN ISLAS [facility] [id number] [place] 13:40:00 13:40:00 [facility] 2022-01-30 2022-01-30 [id number] [facility] 17:02:00 18:29:00 Dwain 53 [facility] 2022-01-30 2022-01-30 Emergency [facility]FORM[facility] [id number] [facility] 17:02:00 18:29:00 Dwain [id number] [facility] 2022-01-22 2022-01-22 Emergency [facility] [id number] [place] 17:24:00 20:39:00 [facility] 2022-01-22 2022-01-22 Emergency [facility] [id number] [place] 17:24:00 20:39:00 [facility] 2022-01-16 2022-01-21 Emergency Raymon Martin [facility] [id number] [place] 11:04:00 18:08:00 Karin Bassett Julian C Agrawal, Parth P 2022-01-16 2022-01-21 Emergency Raymon Martin [facility] [id number] [place] 11:04:00 18:08:00 Karin Bassett Julian C Agrawal, Parth P 2022-01-19 2022-01-19 Outpatient [facility] [id number] [place] 12:34:08 13:29:31 [facility] 2022-01-16 2022-01-16 Outpatient [facility] [id number] [place] 19:42:28 20:01:28 [facility] 2022-01-16 2022-01-16 [facility] [id number] [place] 11:04:00 11:04:00 KARIN Daniels 2022-01-10 2022-01-11 [facility] [id number] [place] 10:58:00 11:20:00 Helene Rnig [facility], Merissa Q 2022-01-10 2022-01-11 [facility] [id number] [place] 10:58:00 11:20:00 Helene Ring [facility], Merissa Q 2022-01-10 2022-01-10 [facility] [id number] [place] 10:58:00 10:58:00 [facility] 2022-01-08 2022-01-09 Emergency [facility] [id number] [place] 17:57:00 02:50:00 [facility] 2022-01-08 2022-01-09 Emergency [facility] [id number] [place] 17:57:00 02:50:00 [facility] 2022-01-08 2022-01-08 Emergency [facility] [id number] [place] 21:40:34 21:50:19 [facility] 2021-09-23 2021-09-23 Emergency EM [facility] [id number] [facility] 19:35:00 21:10:[address] [place] [address] 2021-09-13 2021-09-13 Emergency EM Raffaele Levi HC[facility] AERS [id number] [facility] 14:57:00 16:37:00 06 [facility] 2021-07-27 2021-07-27 Emergency EM Kateryna MASONMN JULIA [id number] [facility] 10:15:00 12:36:[address] [place] [address] 2021-07-22 2021-07-22 Emergency EM MarcelinaMASONCL AERS [id number] [facility] 04:25:00 08:20:00 Tarrell 74 [facility] 2021-06-27 2021-06-27 Emergency EM White, HCACL AERS [id number] [facility] 15:31:00 17:37:00 Steve 17 [facility] 2021-04-28 2021-05-01 Inpatient EM Aisha, HCACL MAS [id number] [facility] 21:05:00 14:18:00 Christopher 03 Cl ear [facility] 2020-02-24 2020-02-24 Outpatient Eliazar, HCACL LABO [id number] [facility] 07:51:00 07:51:00 Mark 96 [facility] 2020-02-18 2020-02-18 Outpatient Avtar HCACL LABO [id number] [facility] 00:26:00 00:26:00 Oladipo 05 [facility] 2020-01-05 2020-01-05 Outpatient Eliazar, HCACL [facility] [id number] [facility] 23:52:00 23:52:00 Mark 24 [facility] 2017-11-02 2017-11-02 Emergency [facility] [id number] 08:33:00 08:33:00 [facility] 2017-08-05 2017-08-05 Outpatient [facility] [id number] [place] 00:00:00 00:00:00 [facility] 2017-07-28 2017-07-28 Outpatient [facility] [id number] [place] 00:00:00 00:00:00 [facility] 2017-06-24 2017-06-24 Outpatient [facility] [id number] [place] 00:00:00 00:00:00 [facility] 2017-06-22 2017-06-22 Emergency [facility] [id number] [place] 21:37:29 21:37:29 Health 2017-06-22 2017-06-22 Emergency [facility] MED [id number] [place] 21:06:00 21:06:00 [facility] 2017-06-22 2017-06-22 Outpatient [facility] [id number] [place] 10:02:31 10:02:31 Health 2017-06-09 2017-06-09 Outpatient [facility] [id number] [place] 00:00:00 00:00:00 Health 2017-06-09 2017-06-09 Outpatient [facility] [id number] [place] 00:00:00 00:00:00 Health 2017-05-08 2017-05-08 Emergency [facility] MED [id number] [place] 01:04:44 01:04:44 [facility] 2017-05-05 2017-05-05 Emergency E [facility] [id number] 08:11:00 08:11:00 [facility] 2017-04-15 2017-04-15 Emergency E [facility] [id number] 09:53:00 09:53:00 [facility] 2017-04-14 2017-04-14 Outpatient 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 09An elevated tropon in value alone is not rordiguez fficient todiagnose a my ocardial infarction. Rat her, the patient sclinic al presentation (h istory, physical exam) and ECGshould be us ed in conjunction wit h troponin in thediagnosti c evaluation of s uspected myocardial infa rction. Aserial samplin g protocol is recommended to facilitate the identification of temporal changes in trop onin levels characteristic of DE. BASIC METABOLIC [id number] 14:56:00 Test Item Value Reference Range Interpretation [...] MG/DL 70-110 N - XR CHEST 1 [id number] 00:00:00 [facility] MARIA ISABEL JOSEPH : 1970 Sex: M FAX: Steve Urias MD [phone] Withams: [place] St: REG Name: MARIA ISABEL JOSEPH FSED : 1970 Age/S: 52/M [address] [facility]. Unit #: [id number] Loc: [place] [address] Phys: Steve Urias MD Acct: [id number] DisDate: Status: REG ER PHONE #: Exam Date: 03/29/2022 1501 FAX #: Reason: Weakness EXAMS: CPT CODE: [id number] XR CHEST 1 V 43273 PROCEDURE INFORMATION: Exam: XR Chest Exam date [...] M.D. 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 Lift Truck Operator ID Philipp HOOD WCBC W/PLT COUNT & AUTO [id number] 06:26:54 Test Item Value Reference Range Interpretation [...] (BEAKER) (test code = 2801) U/S, RENAL, [id number] 19:23:00Reason for exam:->acute kidney injury [facility] : 1970 Sex: MFINAL [...] SARS-Co V-2 (test code = target nucleic 12109-9) acids are not detected in thi s [...] revoked sooner. Fact Sheet for Healthcare Providers: https://www.Offerum/Documents/Xp ert%20Xpress%20SAR S%20CoV-2/Fact%20S heets/302-3802%20S ARS-COV-2%20HEALTH CARE%20PROVIDERS%2 0FACT%20SHEET.pdf Fact Sheet for Healthcare Patients: https://wwwSequana Medical/Documents/Xp ert%20Xpress%20SAR S%20CoV-2/Fact%20S heets/302-3801%20S ARS-COV-2%20PATIEN T%20FACT%20SHEET.p df Lab Interpretation Normal (test code = 31467-4) [facility] 19:17:07 Test Item Value Reference Interpretation Comments Range SARS-COV2/RT-PCR Negative Negative The SARS-Co V-2 (test code = target nucleic 95773-2) acids are not detected in thi s [...] revoked sooner. Fact Sheet for Healthcare Providers: https://www.Offerum/Documents/Xp ert%20Xpress%20SAR S%20CoV-2/Fact%20S heets/302-3802%20S ARS-COV-2%20HEALTH CARE%20PROVIDERS%2 0FACT%20SHEET.pdf Fact Sheet for Healthcare Patients: https://www.Offerum/Documents/Xp ert%20Xpress%20SAR S%20CoV-2/Fact%20S heets/302-3801%20S ARS-COV-2%20PATIEN T%20FACT%20SHEET.p df Lab Interpretation Normal (test code = 01182-3) [facility]22-03-06 19:17:07 Test Item Value Reference Interpretation Comments Range SARS-COV2/RT-PCR Negative Negative The SARS-Co V-2 (test code = target nucleic 99501-6) acids are not detected in thi s [...] revoked sooner. Fact Sheet for Healthcare Providers: https://www.Offerum/Documents/Xp ert%20Xpress%20SAR S%20CoV-2/Fact%20S heets/302-3802%20S ARS-COV-2%20HEALTH CARE%20PROVIDERS%2 0FACT%20SHEET.pdf Fact Sheet for Healthcare Patients: https://www.Offerum/Documents/Xp ert%20Xpress%20SAR S%20CoV-2/Fact%20S heets/302-3801%20S ARS-COV-2%20PATIEN T%20FACT%20SHEET.p df Lab Interpretation Normal (test code = 93274-1) [facility]2022-03-06 19:17:07 Test Item Value Reference Interpretation Comments Range SARS-COV2/RT-PCR Negative Negative The SARS-Co V-2 (test code = target nucleic 30400-9) acids are not detected in thi s [...] revoked sooner. Fact Sheet for Healthcare Providers: https://www.Offerum/Documents/Xp ert%20Xpress%20SAR S%20CoV-2/Fact%20S heets/302-3802%20S ARS-COV-2%20HEALTH CARE%20PROVIDERS%2 0FACT%20SHEET.pdf Fact Sheet for Healthcare Patients: https://www.Offerum/Documents/Xp ert%20Xpress%20SAR S%20CoV-2/Fact%20S heets/302-3801%20S ARS-COV-2%20PATIEN T%20FACT%20SHEET.p df Lab Interpretation Normal (test code = 29032-2) [facility]2022-03-06 19:17:07 Test Item Value Reference Interpretation Comments Range SARS-COV2/RT-PCR Negative Negative The SARS-Co V-2 (test code = target nucleic 79262-8) acids are not detected in thi s [...] revoked sooner. Fact Sheet for Healthcare Providers: https://www.Offerum/Documents/Xp ert%20Xpress%20SAR S%20CoV-2/Fact%20S heets/302-3802%20S ARS-COV-2%20HEALTH CARE%20PROVIDERS%2 0FACT%20SHEET.pdf Fact Sheet for Healthcare Patients: https://www.Offerum/Documents/Xp ert%20Xpress%20SAR S%20CoV-2/Fact%20S heets/302-3801%20S ARS-COV-2%20PATIEN T%20FACT%20SHEET.p df Lab Interpretation Normal (test code = 39592-1) [facility]2022-03-06 19:17:07 Test Item Value Reference Interpretation Comments Range SARS-COV2/RT-PCR Negative Negative The SARS-Co V-2 (test code = target nucleic 89028-4) acids are not detected in thi s [...] revoked sooner. Fact Sheet for Healthcare Providers: https://www.Offerum/Documents/Xp ert%20Xpress%20SAR S%20CoV-2/Fact%20S heets/302-3802%20S ARS-COV-2%20HEALTH CARE%20PROVIDERS%2 0FACT%20SHEET.pdf Fact Sheet for Healthcare Patients: https://www.Offerum/Documents/Xp ert%20Xpress%20SAR S%20CoV-2/Fact%20S heets/302-3801%20S ARS-COV-2%20PATIEN T%20FACT%20SHEET.p df Lab Interpretation Normal (test code = 10188-6) [facility]22-[facility]-06 19:17:07 Test Item Value Reference Interpretation Comments Range SARS-COV2/RT-PCR Negative Negative The SARS-Co V-2 (test code = target nucleic 46340-6) acids are not detected in thi s [...] revoked sooner. Fact Sheet for Healthcare Providers: https://www.Offerum/Documents/Xp ert%20Xpress%20SAR S%20CoV-2/Fact%20S heets/302-3802%20S ARS-COV-2%20HEALTH CARE%20PROVIDERS%2 0FACT%20SHEET.pdf Fact Sheet for Healthcare Patients: https://www.Offerum/Documents/Xp ert%20Xpress%20SAR S%20CoV-2/Fact%20S heets/302-3801%20S ARS-COV-2%20PATIEN T%20FACT%20SHEET.p df Lab Interpretation Normal (test code = 19046-2) [facility]2022-03-06 19:17:07 Test Item Value Reference Interpretation Comments Range SARS-COV2/RT-PCR Negative Negative The SARS-Co V-2 (test code = target nucleic 31295-0) acids are not detected in thi s [...] revoked sooner. Fact Sheet for Healthcare Providers: https://www.Offerum/Documents/Xp ert%20Xpress%20SAR S%20CoV-2/Fact%20S heets/302-3802%20S ARS-COV-2%20HEALTH CARE%20PROVIDERS%2 0FACT%20SHEET.pdf Fact Sheet for Healthcare Patients: https://www.Offerum/Documents/Xp ert%20Xpress%20SAR S%20CoV-2/Fact%20S heets/302-3801%20S ARS-COV-2%20PATIEN T%20FACT%20SHEET.p df Lab Interpretation Normal (test code = 09703-8) [facility]2022-03-06 19:17:07 Test Item Value Reference Interpretation Comments Range SARS-COV2/RT-PCR Negative Negative The SARS-Co V-2 (test code = target nucleic 65385-9) acids are not detected in thi s [...] revoked sooner. Fact Sheet for Healthcare Providers: https://www.Offerum/Documents/Xp ert%20Xpress%20SAR S%20CoV-2/Fact%20S heets/302-3802%20S ARS-COV-2%20HEALTH CARE%20PROVIDERS%2 0FACT%20SHEET.pdf Fact Sheet for Healthcare Patients: https://www.Offerum/Documents/Xp ert%20Xpress%20SAR S%20CoV-2/Fact%20S heets/302-3801%20S ARS-COV-2%20PATIEN T%20FACT%20SHEET.p df Lab Interpretation Normal (test code = 50258-0) [facility]2022-03-06 19:17:07 Test Item Value Reference Interpretation Comments Range SARS-COV2/RT-PCR Negative Negative The SARS-Co V-2 (test code = target nucleic 28152-9) acids are not detected in thi s [...] revoked sooner. Fact Sheet for Healthcare Providers: https://www.Offerum/Documents/Xp ert%20Xpress%20SAR S%20CoV-2/Fact%20S heets/302-3802%20S ARS-COV-2%20HEALTH CARE%20PROVIDERS%2 0FACT%20SHEET.pdf Fact Sheet for Healthcare Patients: https://www.Offerum/Documents/Xp ert%20Xpress%20SAR S%20CoV-2/Fact%20S heets/302-3801%20S ARS-COV-2%20PATIEN T%20FACT%20SHEET.p df Lab Interpretation Normal (test code = 97950-0) [facility]22-03-06 19:17:07 Test Item Value Reference Interpretation Comments Range SARS-COV2/RT-PCR Negative Negative The SARS-Co V-2 (test code = target nucleic 54252-9) acids are not detected in thi s [...] revoked sooner. Fact Sheet for Healthcare Providers: https://www.Offerum/Documents/Xp ert%20Xpress%20SAR S%20CoV-2/Fact%20S heets/302-1882%20S ARS-COV-2%20HEALTH CARE%20PROVIDERS%2 0FACT%20SHEET.pdf Fact Sheet for Healthcare Patients: https://www.Offerum/Documents/Xp ert%20Xpress%20SAR S%20CoV-2/Fact%20S heets/302-6951%20S ARS-COV-2%20PATIEN T%20FACT%20SHEET.p df Lab Interpretation Normal (test code = 50195-9) [facility]22-03-06 19:17:07 Test Item Value Reference Interpretation Comments Range SARS-COV2/RT-PCR Negative Negative The SARS-Co V-2 (test code = target nucleic 40097-5) acids are not detected in thi s [...] revoked sooner. Fact Sheet for Healthcare Providers: https://www.Offerum/Documents/Xp ert%20Xpress%20SAR S%20CoV-2/Fact%20S heets/302-3802%20S ARS-COV-2%20HEALTH CARE%20PROVIDERS%2 0FACT%20SHEET.pdf Fact Sheet for Healthcare Patients: https://www.Offerum/Documents/Xp ert%20Xpress%20SAR S%20CoV-2/Fact%20S heets/302-3801%20S ARS-COV-2%20PATIEN T%20FACT%20SHEET.p df Lab Interpretation Normal (test code = 64086-0) [facility]2022-03-06 19:17:07 Test Item Value Reference Interpretation Comments Range SARS-COV2/RT-PCR Negative Negative The SARS-Co V-2 (test code = target nucleic 81692-3) acids are not detected in thi s [...] revoked sooner. Fact Sheet for Healthcare Providers: https://www.Offerum/Documents/Xp ert%20Xpress%20SAR S%20CoV-2/Fact%20S heets/302-3802%20S ARS-COV-2%20HEALTH CARE%20PROVIDERS%2 0FACT%20SHEET.pdf Fact Sheet for Healthcare Patients: https://www.Offerum/Documents/Xp ert%20Xpress%20SAR S%20CoV-2/Fact%20S heets/302-3801%20S ARS-COV-2%20PATIEN T%20FACT%20SHEET.p df Lab Interpretation Normal (test code = 69648-3) [facility]22-[facility]-06 19:17:07 Test Item Value Reference Interpretation Comments Range SARS-COV2/RT-PCR Negative Negative The SARS-Co V-2 (test code = target nucleic 79819-0) acids are not detected in thi s [...] revoked sooner. Fact Sheet for Healthcare Providers: https://www.Offerum/Documents/Xp ert%20Xpress%20SAR S%20CoV-2/Fact%20S heets/302-3802%20S ARS-COV-2%20HEALTH CARE%20PROVIDERS%2 0FACT%20SHEET.pdf Fact Sheet for Healthcare Patients: https://www.Offerum/Documents/Xp ert%20Xpress%20SAR S%20CoV-2/Fact%20S heets/302-3801%20S ARS-COV-2%20PATIEN T%20FACT%20SHEET.p df Lab Interpretation Normal (test code = 68543-1) [facility]22-03[facility]06 19:17:07 Test Item Value Reference Interpretation Comments Range SARS-COV2/RT-PCR Negative Negative The SARS-Co V-2 (test code = target nucleic 00532-1) acids are not detected in thi s [...] om SARS-CoV-2 in a nasopharyngeal swab specimen [facility] dain from individual s suspected of COVID-19 [...] revoked sooner. Fact Sheet for Healthcare Providers: https://www.Offerum/Documents/Xp ert%20Xpress%20SAR S%20CoV-2/Fact%20S heets/302-3802%20S ARS-COV-2%20HEALTH CARE%20PROVIDERS%2 0FACT%20SHEET.pdf Fact Sheet for Healthcare Patients: https://www.Offerum/Documents/Xp ert%20Xpress%20SAR S%20CoV-2/Fact%20S heets/302-3801%20S ARS-COV-2%20PATIEN T%20FACT%20SHEET.p df Lab Interpretation Normal (test code = 35421-3) [facility]06 19:17:07 Test Item Value Reference Interpretation Comments Range SARS-COV2/RT-PCR Negative Negative The SARS-Co V-2 (test code = target nucleic 70820-4) acids are not detected in thi s [...] revoked sooner. Fact Sheet for Healthcare Providers: https://www.Offerum/Documents/Xp ert%20Xpress%20SAR S%20CoV-2/Fact%20S heets/302-3802%20S ARS-COV-2%20HEALTH CARE%20PROVIDERS%2 0FACT%20SHEET.pdf Fact Sheet for Healthcare Patients: https://www.Offerum/Documents/Xp ert%20Xpress%20SAR S%20CoV-2/Fact%20S heets/302-3801%20S ARS-COV-2%20PATIEN T%20FACT%20SHEET.p df Lab Interpretation Normal (test code = 32479-8) [facility]22-[facility]06 19:17:07 Test Item Value Reference Interpretation Comments Range SARS-COV2/RT-PCR Negative Negative The SARS-Co V-2 (test code = target nucleic 72463-9) acids are not detected in thi s [...] revoked sooner. Fact Sheet for Healthcare Providers: https://www.Offerum/Documents/Xp ert%20Xpress%20SAR S%20CoV-2/Fact%20S heets/302-3802%20S ARS-COV-2%20HEALTH CARE%20PROVIDERS%2 0FACT%20SHEET.pdf Fact Sheet for Healthcare Patients: https://wwwSequana Medical/Documents/Xp ert%20Xpress%20SAR S%20CoV-2/Fact%20S heets/302-3801%20S ARS-COV-2%20PATIEN T%20FACT%20SHEET.p df Lab Interpretation Normal (test code = 76222-5) [facility]2022-03-06 19:17:07 Test Item Value Reference Interpretation Comments Range SARS-COV2/RT-PCR Negative Negative The SARS-Co V-2 (test code = target nucleic 88255-3) acids are not detected in thi s [...] revoked sooner. Fact Sheet for Healthcare Providers: https://www.Offerum/Documents/Xp ert%20Xpress%20SAR S%20CoV-2/Fact%20S heets/302-3802%20S ARS-COV-2%20HEALTH CARE%20PROVIDERS%2 0FACT%20SHEET.pdf Fact Sheet for Healthcare Patients: https://www.Offerum/Documents/Xp ert%20Xpress%20SAR S%20CoV-2/Fact%20S heets/302-3801%20S ARS-COV-2%20PATIEN T%20FACT%20SHEET.p df Lab Interpretation Normal (test code = 34558-4) [facility]2022-03-06 19:17:07 Test Item Value Reference Interpretation Comments Range SARS-COV2/RT-PCR Negative Negative The SARS-Co V-2 (test code = target nucleic 00642-5) acids are not detected in thi s [...] revoked sooner. Fact Sheet for Healthcare Providers: https://www.Offerum/Documents/Xp ert%20Xpress%20SAR S%20CoV-2/Fact%20S heets/302-3802%20S ARS-COV-2%20HEALTH CARE%20PROVIDERS%2 0FACT%20SHEET.pdf Fact Sheet for Healthcare Patients: https://wwwSequana Medical/Documents/Xp ert%20Xpress%20SAR S%20CoV-2/Fact%20S heets/302-3801%20S ARS-COV-2%20PATIEN T%20FACT%20SHEET.p df Lab Interpretation Normal (test code = 46451-0) [facility])2022-03-06 19:17:07 Test Item Value Reference Range Interpretation Comments SARS-COV2/RT-PCR Negative Negative The SARS-Co V-2 target (test code = nucleic acids a re not 7908474) detected in thi s specimen. Negative result [...] revoked sooner. Fact Sheet for Healthcare Providers: https://www.[employer]formantonline m/Documents/Xpert%20Xpress%20SARS%20CoV-2/Fact%20Sheets/302-3802%99LSDH-YBE-3%20 HEALTHCARE%20PROVIDERS%20FACT%20SHEET.pdf Fact Sheet for Healthcare Patients: https://www.[employer]/Documents/Xpert%20Xp ress%20SARS%20CoV-2/Fact%20Sheets/302-3801%86ANSN-VYL-2%20PATIENT%20FACT%20SHEET .pdfCREATINE KINASE (CK)2022-03-06 16:19:14 Test Item Value Reference Range Interpretation Comments CREATINE KINASE TOTAL (BEAKER) (test 141 U/L 29-200 code = 380) Lift Truck Operator ID - BST4, [id number] 15:13:16 Test Item Value Reference Range Interpretation Comments FREE T4 (BEAKER) (test code = 655) 0.95 ng/dL 0.70-1.48 Lift Truck Operator ID - BSTSH/FREE T4 IF [id number] 15:13:16 Test Item Value Reference Range Interpretation Comments THYROID STIMULATING HORMONE 2.060 uIU/mL 0.350-4.940 (BEAKER) (test code = 772) Lift Truck Operator ID - BSB-TYPE NATRIURETIC FACTOR (BNP)2022-03-06 14:26:30 Test Item Value Reference Range Interpretation Comments B-TYPE NATRIURETIC PEPTIDE (BEAKER) < pg/mL 0-100 (test code = 700) Lift Truck Operator ID - JSHIGH SENSITIVITY TROPONIN [id number] 14:14:54 Test Item Value Reference Range Interpretation Comments HIGH SENSITIVITY < pg/ml See_Comment [Automated message] TROPONIN I (test code = The system which 8254578) generated this result transmitted ref erence range: <=35. Th e reference range was not used to interpr et this result as normal/abnormal . Lift Truck Operator ID - JSThe DATA COLLECTION TECHNICIAN STAT High Sensitivity Troponin-I results should be used in conjunctionwith other diagnostic information such as ECG, clinical observations and information, and patient symptoms to aid in the diagnosis of DE.RAD, CHEST, 1 VIEW, NON [id number] 14:10:00Reason for exam:- >NEUROLOGIC PROBLEMShould this be performed at the bedside?->Yes [facility] 1970 Sex: MFINAL REPORT Chest, 1 view, 03/06/2022 2:03 PM. History: Neurologic problem. Comparison: 03/28/2019. Discussion: The cardiomediastinal silhouette and pulmonary vasculature are within normal limits for a portable exam. The lungs are clear without evidence of consolidation or effusion. The soft tissues and osseous structures are intact. IMPRESSION: No acute cardiopulmonary abnormality. Signed: Bernabe Brown [facility] Verified Date/Time: 03/06/2022 14:10:44 REHENSIVE METABOLIC [id number] 14:08:22 Test Item Value Reference Range Interpretation [...] S NOT APPLICABLE FOR DIALYSIS PATIEN TS. Lift Truck Operator ID - [id number] 14:07:49 Test Item Value Reference Range Interpretation Comments MAGNESIUM (BEAKER) (test code = 2.0 mg/dL 1.6-2.6 627) Lift Truck Operator ID - [id number] 14:07:49 Test Item Value Reference Range Interpretation Comments PHOSPHORUS (BEAKER) (test code = 5.6 mg/dL 2.3-4.7 H 604) Lift Truck Operator ID - JSLACTIC ACID, [id number] 13:51:04 Test Item Value Reference Range Interpretation Comments LACTATE BLOOD VENOUS 1.32 mmol/L 0.50-2.20 Specime n slightly (2) (BEAKER) (test hemolyzed code = 4220) Lift Truck Operator ID - JSCBC W/PLT COUNT & AUTO [id number] 13:47:24 Test Item Value Reference Range Interpretation [...] (BEAKER) (test code = 2801) Coronavirus, CoVID-19, [id number] 01:07:20 Test Item Value Reference Range Interpretation Comments COVID-19 (SARS-COV-2) Not Detected Not Detected INTERP RETATION: No (test code = 54328-0) detect able levels of SARS-CoV-2 Coronavirus (COVID-19) [...] SARS-CoV-2 mole cular diagnostic assa y utilizes Piping Design Specialist Mediated Amplification ( TMA) technology to r apidly detect the SARS -CoV-2 (COVID-19) viru s from respiratory adriana ples. In accordance w ith the FDA's kamran nce document "Polic y for Diagnostic Test s for Coronavirus Disease-2019 du [facility] the Public [facility] th Emergency", thi s test was developed, and its performance characteristics were verified by the [facility] molecular diagn ostics laboratory and is authorized for clinical diagno stic use. This labor atory is certified un estevan the Clinical Laboratory Improvement Amendments (CLI A) as qualified to pe rform high complexity clinical labora tory testing. Lab Interpretation Normal (test code = 88625-5) [facility] [id number] 01:07:20 Test Item Value Reference Range Interpretation Comments COVID-19 (SARS-COV-2) Not Detected Not Detected INTERP RETATION: No (test code = 22482-9) detect able levels of SARS-CoV-2 Coronavirus (COVID-19) [...] SARS-CoV-2 mole cular diagnostic assa y utilizes Piping Design Specialist Mediated Amplification ( TMA) technology to r apidly detect the SARS -CoV-2 (COVID-19) viru s from respiratory adriana ples. In accordance w ith the FDA's kamran nce document "Polic y for Diagnostic Test s for Coronavirus Disease-2019 du [facility]", thi s test was developed, and its performance characteristics were verified by the [facility] molecular diagn ostics laboratory and is authorized for clinical diagno stic use. This labor atory is certified un estevan the Clinical Laboratory Improvement Amendments (CLI A) as qualified to pe rform high complexity clinical labora tory testing. Lab Interpretation Normal (test code = 42949-4) [facility], [id number] 01:07:20 Test Item Value Reference Range Interpretation Comments COVID-19 (SARS-COV-2) Not Detected Not Detected INTERP RETATION: No (test code = 53776-2) detect able levels of SARS-CoV-2 Coronavirus (COVID-19) [...] SARS-CoV-2 mole cular diagnostic assa y utilizes Piping Design Specialist Mediated Amplification ( TMA) technology to r apidly detect the SARS -CoV-2 (COVID-19) viru s from respiratory adriana ples. In accordance w ith the FDA's kamran nce document "Polic y for Diagnostic Test s for Coronavirus Disease-2019 du [facility] the [facility]", thi s test was developed, and its performance characteristics were verified by the [facility] molecular diagn ostics laboratory and is authorized for clinical diagno stic use. This labor atory is certified un estevan the Clinical Laboratory Improvement Amendments (CLI A) as qualified to pe rform high complexity clinical labora tory testing. Lab Interpretation Normal (test code = 87447-2) [facility], [id number] 01:07:20 Test Item Value Reference Range Interpretation Comments COVID-19 (SARS-COV-2) Not Detected Not Detected INTERP RETATION: No (test code = 78043-2) detect able levels of SARS-CoV-2 Coronavirus (COVID-19) [...] SARS-CoV-2 mole cular diagnostic assa y utilizes Piping Design Specialist Mediated Amplification ( TMA) technology to r apidly detect the SARS -CoV-2 (COVID-19) viru s from respiratory adriana ples. In accordance w ith the FDA's kamran nce document "Polic y for Diagnostic Test s for Coronavirus Disease-2019 du [facility] the [facility]", thi s test was developed, and its performance characteristics were verified by the [facility] molecular diagn ostics laboratory and is authorized for clinical diagno stic use. This labor atory is certified un estevan the Clinical Laboratory Improvement Amendments (CLI A) as qualified to pe rform high complexity clinical labora tory testing. Lab Interpretation Normal (test code = 36089-3) [facility], [id number] 01:07:20 Test Item Value Reference Range Interpretation Comments COVID-19 (SARS-COV-2) Not Detected Not Detected INTERP RETATION: No (test code = 09927-4) detect able levels of SARS-CoV-2 Coronavirus (COVID-19) [...] SARS-CoV-2 mole cular diagnostic assa y utilizes Piping Design Specialist Mediated Amplification ( TMA) technology to r apidly detect the SARS -CoV-2 (COVID-19) viru s from respiratory adriana ples. In accordance w ith the FDA's kamran nce document "Polic y for Diagnostic Test s for Coronavirus Disease-2019 du [facility] the Public [facility] Emergency", thi s test was developed, and its performance characteristics were verified by the [facility] molecular diagn ostics laboratory and is authorized for clinical diagno stic use. This labor atory is certified un estevan the Clinical Laboratory Improvement Amendments (CLI A) as qualified to pe rform high complexity clinical labora tory testing. Lab Interpretation Normal (test code = 29672-4) [facility], [facility] [id number] 01:07:20 Test Item Value Reference Range Interpretation Comments COVID-19 (SARS-COV-2) Not Detected Not Detected INTERP RETATION: No (test code = 06412-1) detect able levels of SARS-CoV-2 Coronavirus (COVID-19) [...] SARS-CoV-2 mole cular diagnostic assa y utilizes Piping Design Specialist Mediated Amplification ( TMA) technology to r apidly detect the SARS -CoV-2 (COVID-19) viru s from respiratory adriana ples. In accordance w ith the FDA's kamran nce document "Polic y for Diagnostic Test s for Coronavirus Disease-2019 [facility] the [facility]", thi s test was developed, and its performance characteristics were verified by the [facility] molecular diagn ostics laboratory and is authorized for clinical diagno stic use. This labor atory is certified un estevan the Clinical Laboratory Improvement Amendments (CLI A) as qualified to pe rform high complexity clinical labora tory testing. Lab Interpretation Normal (test code = 57569-6) [facility], [id number] 01:07:20 Test Item Value Reference Range Interpretation Comments COVID-19 (SARS-COV-2) Not Detected Not Detected INTERP RETATION: No (test code = 43866-4) detect able levels of SARS-CoV-2 Coronavirus (COVID-19) [...] SARS-CoV-2 mole cular diagnostic assa y utilizes Piping Design Specialist Mediated Amplification ( TMA) technology to r apidly detect the SARS -CoV-2 (COVID-19) viru s from respiratory adriana ples. In accordance w ith the FDA's kamran nce document "Polic y for Diagnostic Test s for Coronavirus Disease-2019 [facility] the [facility]", thi s test was developed, and its performance characteristics were verified by the [facility] molecular diagn ostics laboratory and is authorized for clinical diagno stic use. This labor atory is certified un est[place] the Clinical Laboratory Improvement Amendments (CLI A) as qualified to pe rform high complexity clinical labora tory testing. Lab Interpretation Normal (test code = 79000-3) [facility], [id number] 01:07:20 Test Item Value Reference Range Interpretation Comments COVID-19 (SARS-COV-2) Not Detected Not Detected INTERP RETATION: No (test code = 78642-9) detect able levels of SARS-CoV-2 Coronavirus (COVID-19) [...] SARS-CoV-2 mole cular diagnostic assa y utilizes Piping [employer] Specialist Mediated Amplification ( TMA) technology to r apidly detect the SARS -CoV-2 (COVID-19) viru s from respiratory adriana ples. In accordance w ith the FDA's kamran nce document "Polic y for Diagnostic Test s for Coronavirus Disease-2019 [facility] the [facility]", thi s test was developed, and its performance characteristics were verified by the [facility] molecular diagn ostics laboratory and is authorized for clinical diagno stic use. This labor atory is certified un [place] the Clinical Laboratory Improvement Amendments (CLI A) as qualified to pe rform high complexity clinical labora tory testing. Lab Interpretation Normal (test code = 19488-7) [facility], [id number] 01:07:20 Test Item Value Reference Range Interpretation Comments COVID-19 (SARS-COV-2) Not Detected Not Detected INTERP RETATION: No (test code = 75344-0) detect able levels of SARS-CoV-2 Coronavirus (COVID-19) [...] SARS-CoV-2 mole cular diagnostic assa y utilizes Piping [employer] Specialist Mediated Amplification ( TMA) technology to r apidly detect the SARS -CoV-2 (COVID-19) viru s from respiratory adriana ples. In accordance w ith the FDA's kamran nce document "Polic y for Diagnostic Test s for Coronavirus Disease-2019 [facility] the [facility]", thi s test was developed, and its performance characteristics were verified by the [facility] molecular diagn ostics laboratory and is authorized for clinical diagno stic use. This labor atory is certified un [place] the Clinical Laboratory Improvement Amendments (CLI A) as qualified to pe rform high complexity clinical labora tory testing. Lab Interpretation Normal (test code = 75856-8) Maged ChauCoronavirus, CoVID-19, [id number] 01:07:20 Test Item Value Reference Range Interpretation Comments COVID-19 (SARS-COV-2) Not Detected Not Detected INTERP RETATION: No (test code = 64091-5) detect able levels of SARS-CoV-2 Coronavirus (COVID-19) [...] SARS-CoV-2 Coronavirus (COVID-19).COMM ENT: This Hologic Ap leatah SARS-CoV-2 mole cular diagnostic assa y utilizes Piping [employer] Specialist Mediated Amplification ( TMA) technology to r apidly detect the SARS -CoV-2 (COVID-19) viru s from respiratory adriana ples. In accordance w ith the FDA's kamran nce document "Polic y for Diagnostic Test s for Coronavirus Disease-2019 [facility] the [facility] Emergency", thi s test was developed, and its performance characteristics were verified by the [facility] molecular diagn ostics laboratory and is authorized for clinical diagno stic use. This labor atory is certified un est[place] the Clinical Laboratory Improvement Amendments (CLI A) as qualified to pe rform high complexity clinical labora tory testing. Lab Interpretation Normal (test code = 65697-2) [facility], [id number] 01:07:20 Test Item Value Reference Range Interpretation Comments COVID-19 (SARS-COV-2) Not Detected Not Detected INTERP RETATION: No (test code = 67350-5) detect able levels of SARS-CoV-2 Coronavirus (COVID-19) [...] SARS-CoV-2 mole cular diagnostic assa y utilizes Piping [employer] Specialist Mediated Amplification ( TMA) technology to r apidly detect the SARS -CoV-2 (COVID-19) viru s from respiratory adriana ples. In accordance w ith the FDA's kamran nce document "Polic y for Diagnostic Test s for Coronavirus Disease-2019 [facility] the [facility]", thi s test was developed, and its performance characteristics were verified by the [facility] molecular diagn ostics laboratory and is authorized for clinical diagno stic use. This labor atory is certified un [place] the Clinical Laboratory Improvement Amendments (CLI A) as qualified to pe rform high complexity clinical labora tory testing. Lab Interpretation Normal (test code = 66410-5) [facility], [id number] 01:07:20 Test Item Value Reference Range Interpretation Comments COVID-19 (SARS-COV-2) Not Detected Not Detected INTERP RETATION: No (test code = 32862-0) detect able levels of SARS-CoV-2 Coronavirus (COVID-19) [...] SARS-CoV-2 mole cular diagnostic assa y utilizes Piping [employer] Specialist Mediated Amplification ( TMA) technology to r apidly detect the SARS -CoV-2 (COVID-19) viru s from respiratory adriana ples. In accordance w ith the FDA's kamran nce document "Polic y for Diagnostic Test s for Coronavirus Disease-2019 [facility] the [facility]", thi s test was developed, and its performance characteristics were verified by the [facility] molecular diagn ostics laboratory and is authorized for clinical diagno stic use. This labor atory is certified un [place] the Clinical Laboratory Improvement Amendments (CLI A) as qualified to pe rform high complexity clinical labora tory testing. Lab Interpretation Normal (test code = 78840-8) Maged Ruelasronavirus, CoVID-19, [id number] 01:07:20 Test Item Value Reference Range Interpretation Comments COVID-19 (SARS-COV-2) Not Detected Not Detected INTERP RETATION: No (test code = 25781-0) detect able levels of SARS-CoV-2 Coronavirus (COVID-19) [...] SARS-CoV-2 mole cular diagnostic assa y utilizes Piping [employer] Specialist Mediated Amplification ( TMA) technology to r apidly detect the SARS -CoV-2 (COVID-19) viru s from respiratory adriana ples. In accordance w ith the FDA's kamran nce document "Polic y for Diagnostic Test s for Coronavirus Disease-2019 [facility]", thi s test was developed, and its performance characteristics were verified by the [facility] molecular diagn ostics laboratory and is authorized for clinical diagno stic use. This labor atory is certified un [place] the Clinical Laboratory Improvement Amendments (CLI A) as qualified to pe rform high complexity clinical labora tory testing. Lab Interpretation Normal (test code = 13842-1) Maged Ruelasronavirus, CoVID-19, [id number] 01:07:20 Test Item Value Reference Range Interpretation Comments COVID-19 (SARS-COV-2) Not Detected Not Detected INTERP RETATION: No (test code = 09366-0) detect able levels of SARS-CoV-2 Coronavirus (COVID-19) [...] SARS-CoV-2 mole cular diagnostic assa y utilizes Pip[employer] Specialist Mediated Amplification ( TMA) technology to r apidly detect the SARS -CoV-2 (COVID-19) viru s from respiratory adriana ples. In accordance w ith the FDA's kamran nce document "Polic y for Diagnostic Test s for Coronavirus Disease-2019 [facility] the [facility]", thi s test was developed, and its performance characteristics were verified by the [facility] molecular diagn ostics laboratory and is authorized for clinical diagno stic use. This labo ratory is certified un est[place] the Clinical Laboratory Improvement Amendments (CLI A) as qualified to pe rform high complexity clinical labora tory testing. Lab Interpretation Normal (test code = 35653-6) [facility], [id number] 01:07:20 Test Item Value Reference Range Interpretation Comments COVID-19 (SARS-COV-2) Not Detected Not Detected INTERP RETATION: No (test code = 29845-6) detect able levels of SARS-CoV-2 Coronavirus (COVID-19) [...] SARS-CoV-2 mole cular diagnostic assa y utilizes Pip[employer] Specialist Mediated Amplification ( TMA) technology to r apidly detect the SARS -CoV-2 (COVID-19) viru s from respiratory adriana ples. In accordance w ith the FDA's kamran nce document "Polic y for Diagnostic Test s for Coronavirus Disease-2019 [facility]", thi s test was developed, and its performance characteristics were verified by the [facility] molecular diagn ostics laboratory and is authorized for clinical diagno stic use. This labor atory is certified un est[place] the Clinical Laboratory Improvement Amendments (CLI A) as qualified to pe rform high complexity clinical labora tory testing. Lab Interpretation Normal (test code = 55355-6) [facility], [id number] 01:07:20 Test Item Value Reference Range Interpretation Comments COVID-19 (SARS-COV-2) Not Detected Not Detected INTERP RETATION: No (test code = 18564-3) detect able levels of SARS-CoV-2 Coronavirus (COVID-19) [...] SARS-CoV-2 mole cular diagnostic assa y utilizes Pip[employer] Specialist Mediated Amplification ( TMA) technology to r apidly detect the SARS -CoV-2 (COVID-19) viru s from respiratory adriana ples. In accordance w ith the FDA's kamran nce document "Polic y for Diagnostic Test s for Coronavirus Disease-2019 [facility]", thi s test was developed, and its performance characteristics were verified by the [facility] molecular diagn ostics laboratory and is authorized for clinical diagno stic use. This labor atory is certified un est[place] the Clinical Laboratory Improvement Amendments (CLI A) as qualified to pe rform high complexity clinical labora tory testing. Lab Interpretation Normal (test code = 23647-9) [place] [facility]ronavirus, CoVID-19, [id number] 01:07:20 Test Item Value Reference Range Interpretation Comments COVID-19 (SARS-COV-2) Not Detected Not Detected INTERP RETATION: No (test code = 75989-7) detect able levels of SARS-CoV-2 Coronavirus (COVID-19) [...] SARS-CoV-2 mole cular diagnostic assa y utilizes Piping [employer] Specialist Mediated Amplification ( TMA) technology to r apidly detect the SARS -CoV-2 (COVID-19) viru s from respiratory adriana ples. In accordance w ith the FDA's kamran nce document "Polic y for Diagnostic Test s for Coronavirus Disease-2019 [facility]", thi s test was developed, and its performance characteristics were verified by the [facility] molecular diagn ostics laboratory and is authorized for clinical diagno stic use. This labor atory is certified un est[place] the Clinical Laboratory Improvement Amendments (CLI A) as qualified to pe rform high complexity clinical labora tory testing. Lab Interpretation Normal (test code = 52141-5) [place] [facility]ronavirus, CoVID-19, [id number] 01:07:20 Test Item Value Reference Range Interpretation Comments COVID-19 (SARS-COV-2) Not Detected Not Detected INTERP RETATION: No (test code = 89027-6) detect able levels of SARS-CoV-2 Coronavirus (COVID-19) [...] SARS-CoV-2 mole cular diagnostic assa y utilizes Piping [employer] Specialist Mediated Amplification ( TMA) technology to r apidly detect the SARS -CoV-2 (COVID-19) viru s from respiratory adriana ples. In accordance w ith the FDA's kamran nce document "Polic y for Diagnostic Test s for Coronavirus Disease-2019 [facility]", thi s test was developed, and its performance characteristics were verified by the [facility] molecular diagn ostics laboratory and is authorized for clinical diagno stic use. This labor atory is certified un est[place] the Clinical Laboratory Improvement Amendments (CLI A) as qualified to pe rform high complexity clinical labora tory testing. Lab Interpretation Normal (test code = 61511-6) [facility] ORF1ab Resp Ql [id number] 01:07:20 Test Item Value Reference Range Interpretation Comments Hospitalized? (test No code = 16362-5) ICU? (test code = No 86323-3) Symptomatic as No defined by CDC? (test code = 04467-7) Employed in No Healthcare? (test code = 44619-1) Resident in a No congregate care setting (including nursing homes, residential care for people with intellectual and developmental disabilities, psychiatric treatment facilities, group homes, board and care homes, homeless senior care, foster care or other): (test code = 72709-4) SARS-CoV-2 ORF1ab NOT DETECTED Not Detected INTERPRETA TION: No Resp Ql OLENA+probe detectable levels of (test code = SARS-CoV-2 68018-9) Coronavirus (COVID-19) were present in this patient's [...] SARS-CoV-2 mole cular diagnostic assa y utilizes Piping [employer] Specialist Mediated Amplification ( TMA) technology to r apidly detect the SARS -CoV-2 (COVID-19) viru s from respiratory adriana ples. In accordance with\\XC2A0\\the FDA's guidance docume nt "Policy for Diagnostic Test s for Coronavirus Disease-2019 [facility]", ginger s test was developed, and its performance characteristics were verified by the [facility] molecular diagn ostics laboratory and is authorized for clinical diagno stic use. \\XC2A0\\Thi s laboratory is certified under the Clinical Labora tory Improvement Amendments (CLI A) as qualified to pe rform high complexity clinical labora tory testing. [facility] [id number] 08:09:01 Test Item Value Reference Range Interpretation Comments Glucose POC (test code = 28968412) 85 mg/dL 74-106 Lab Interpretation (test code = Normal 86301-6) [facility] GLUCOSE POC docked [id number] 08:09:01 Test Item Value Reference Range Interpretation Comments Glucose POC (test code = 24270818) 85 mg/dL 74-106 Lab Interpretation (test code = Normal 61635-5) [facility] GLUCOSE POC docked [id number] 08:09:01 Test Item Value Reference Range Interpretation Comments Glucose POC (test code = 67643310) 85 mg/dL 74-106 Lab Interpretation (test code = Normal 67591-3) [facility] GLUCOSE POC docked [id number] 08:09:01 Test Item Value Reference Range Interpretation Comments Glucose POC (test code = 68125823) 85 mg/dL 74-106 Lab Interpretation (test code = Normal 53624-6) [facility] [id number] 08:09:01 Test Item Value Reference Range Interpretation Comments Glucose POC (test code = 89816729) 85 mg/dL 74-106 Lab Interpretation (test code = Normal 31391-7) [facility] [id number] 08:09:01 Test Item Value Reference Range Interpretation Comments Glucose POC (test code = 13427959) 85 mg/dL 74-106 Lab Interpretation (test code = Normal 81434-2) [facility] [id number] 08:09:01 Test Item Value Reference Range Interpretation Comments Glucose POC (test code = 61941470) 85 mg/dL 74-106 Lab Interpretation (test code = Normal 35371-9) [facility] [id number] 08:09:01 Test Item Value Reference Range Interpretation Comments Glucose POC (test code = 48276891) 85 mg/dL 74-106 Lab Interpretation (test code = Normal 58769-2) [facility] [id number] 08:09:01 Test Item Value Reference Range Interpretation Comments Glucose POC (test code = 19708016) 85 mg/dL 74-106 Lab Interpretation (test code = Normal 00771-8) [facility] [id number] 08:09:01 Test Item Value Reference Range Interpretation Comments Glucose POC (test code = 30775230) 85 mg/dL 74-106 Lab Interpretation (test code = Normal 77009-0) [facility] [id number] 08:09:01 Test Item Value Reference Range Interpretation Comments Glucose POC (test code = 05625505) 85 mg/dL 74-106 Lab Interpretation (test code = Normal 77723-9) [facility] [id number] 08:09:01 Test Item Value Reference Range Interpretation Comments Glucose POC (test code = 83332800) 85 mg/dL 74-106 Lab Interpretation (test code = Normal 19020-3) [facility] [id number] 08:09:01 Test Item Value Reference Range Interpretation Comments Glucose POC (test code = 36854158) 85 mg/dL 74-106 Lab Interpretation (test code = Normal 34628-1) [facility] [id number] 08:09:01 Test Item Value Reference Range Interpretation Comments Glucose POC (test code = 50396878) 85 mg/dL 74-106 Lab Interpretation (test code = Normal 04443-1) [facility] [id number] 08:09:01 Test Item Value Reference Range Interpretation Comments Glucose POC (test code = 08027808) 85 mg/dL 74-106 Lab Interpretation (test code = Normal 65459-3) [facility] [id number] 08:09:01 Test Item Value Reference Range Interpretation Comments Glucose POC (test code = 04200317) 85 mg/dL 74-106 Lab Interpretation (test code = Normal 80450-8) [facility] [id number] 08:09:01 Test Item Value Reference Range Interpretation Comments Glucose POC (test code = 35017538) 85 mg/dL 74-106 Lab Interpretation (test code = Normal 16691-6) [facility] [id number] 08:09:01 Test Item Value Reference Range Interpretation Comments Glucose POC (test code = 99032791) 85 mg/dL 74-106 Lab Interpretation (test code = Normal 34306-4) [facility] ORF1ab Resp Ql OLENA+[id number] 23:25:40 Test Item Value Reference Range Interpretation Comments Hospitalized? (test No code = 58976-6) ICU? (test code = No 06160-3) Symptomatic as No defined by CDC? (test code = 97720-5) Employed in No Healthcare? (test code = 08553-1) Resident in a No congregate care setting (including nursing homes, residential care for people with intellectual and developmental disabilities, psychiatric treatment facilities, group homes, board and care homes, homeless senior care, foster care or other): (test code = 25191-7) SARS-CoV-2 ORF1ab NOT DETECTED Not Detected INTERPRETA TION: No Resp Ql OLENA+probe detectable levels of (test code = SARS-CoV-2 45923-0) Coronavirus (COVID-19) were present in this patient's [...] SARS-CoV-2 mole cular diagnostic assa y utilizes [employer] Specialist Mediated Amplification ( TMA) technology to r apidly detect the SARS -CoV-2 (COVID-19) viru s from respiratory adriana ples. In accordance with\\XC2A0\\the FDA's guidance docume nt "Policy for Diagnostic Test s for Coronavirus Disease-2019 [facility]", ginger s test was developed, and its performance characteristics were verified by the [facility] molecular diagn ostics laboratory and is authorized for clinical diagno stic use. \\XC2A0\\Ginger s laboratory is certified under the Clinical Labora tory Improvement Amendments (CLI A) as qualified to pe rform high complexity clinical labora tory testing. [facility]12 Lead [id number] 15:46:1012 LEAD EKG FOR [facility] Test Date: 4105-55-28Fxx Name: DORA JOSEPH Department: 5ECIPatient ID: [id number] Room: Gender: 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: [id number]: 1970 Requested By: DARRION LOERA Marquis Number: [id number] Reading MD: Rene Patterson MeasurementsIntervals [place] Rate: 61 P: 72PR: 152 QRS: 55QRSD: 106 T: 63QT: 398 QTc: 400 Interpretive StatementsSINUS RHYTHMPOSSIBLE RIGHT VENTRICULAR CONDUCTION DELAY [RSR (QR) IN V1/V2]Electronically Signed On 01-22-2022 8:30:45 CDT by Rene [place]Michael [place] [address] Lead [id number] 15:46:1012 LEAD EKG FOR [facility] Test Date: 3578-71-27Uib Name: DORA JOSEPH Department: 5ECIPatient ID: [id number] Room: Gender: 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: [id number]: 1970 Requested By: DARRION Cho Number: [id number] Reading MD: Rene Patterson MeasurementsIntervals [place] Rate: 61 P: 72PR: 152 QRS: 55QRSD: 106 T: 63QT: 398 QTc: 400 Interpretive StatementsSINUS RHYTHMPOSSIBLE RIGHT VENTR ICULAR CONDUCTION DELAY [RSR (QR) IN V1/V2]Electronically Signed On 01-22-2022 8:30:45 CDT by Rene [place]itiaCTCompaRyan [place] [address] Lead [id number] 15:46:1012 LEAD EKG FOR [facility] Test Date: 8622-30-92Gif Name: DORA JOSEPH Department: 5ECIPatient ID: [id number] Room: Gender: 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: [id number]: 1970 Requested By: DARRION Cho Number: [id number] Reading MD: Rene Patterson MeasurementsIntervals [place] Rate: 61 P: 72PR: 152 QRS: 55QRSD: 106 T: 63QT: 398 QTc: 400 Interpretive StatementsSINUS RHYTHMPOSSIBLE RIGHT VENTRICULAR CONDUCTION DELAY [RSR (QR) IN V1/V2]Electronically Signed On 01-22-2022 8:30:45 CDT by Rene [place] [address] Lead [id number] 15:46:1012 LEAD EKG FOR [facility] Test Date: 1844-61-32Sub Name: DORA JOSEPH Department: 5ECIPatient ID: [id number] Room: Gender: 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: [id number]: 1970 Requested By: DARRION Cho Number: [id number] Reading MD: Rene Patterson MeasurementsIntervals [place] Rate: 61 P: 72PR: 152 QRS: 55QRSD: 106 T: 63QT: 398 QTc: 400 Interpretive StatementsSINUS RHYTHMPOSSIBLE RIGHT VENTRICULAR CONDUCTION DELAY [RSR (QR) IN V1/V2]Electronically Signed On 01-22-2022 8:30:45 CDT [facility] [id number] 15:46:1012 LEAD EKG FOR [facility] Test Date: 4528-85-18Npm Name: DORA JOSEPH Department: 5ECIPatient ID: [id number] Room: Gender: 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: [id number]: 1970 Requested By: DARRION Cho Number: [id number] Reading MD: Rene Patterson MeasurementsIntervals [place] Rate: 61 P: 72PR: 152 QRS: 55QRSD: 106 T: 63QT: 398 QTc: 400 Interpretive StatementsSINUS RHYTHMPOSSIBLE RIGHT VENTRICULAR CONDUCTION DELAY [RSR (QR) IN V1/V2]Electronically Signed On 01-22-2022 8:30:45 CDT by [facility] [id number] 15:46:1012 LEAD EKG FOR [facility] Test Date: 6278-15-92Prk Name: DORA JOSEPH Department: 5ECIPatient ID: [id number] Room: Gender: 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: [id number]: 1970 Requested By: DARRION Cho Number: [id number] Reading MD: Rene Patterson MeasurementsIntervals [place] Rate: 61 P: 72PR: 152 QRS: 55QRSD: 106 T: 63QT: 398 QTc: 400 Interpretive StatementsSINUS RHYTHMPOSSIBLE RIGHT VENTRI CULAR CONDUCTION DELAY [RSR (QR) IN V1/V2]Electronically Signed On 01-22-2022 8:30:45 CDT by Rene [facility]Is[facility]12 Lead [id number] 15:46:1012 LEAD EKG FOR [facility] Test Date: 1612-60-65Fmn Name: DORA JOSEPH Department: 5ECIPatient ID: [id number] Room: Gender: 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: [id number]: 1970 Requested By: DARRION Cho Number: [id number] Reading MD: Rene Patterson MeasurementsIntervals [place] Rate: 61 P: 72PR: 152 QRS: 55QRSD: 106 T: 63QT: 398 QTc: 400 Interpretive StatementsSINUS RHYTHMPOSSIBLE RIGHT VENTRICULAR CONDUCTION DELAY [RSR (QR) IN V1/V2]Electronically Signed On 01-22-2022 8:30:45 CDT by Rene AvitiaAmerican BioCareMaged Cglreo62 Lead [id number] 15:46:1012 LEAD EKG FOR [facility] Test Date: 1453-87-73Ack Name: DORA JOSEPH Department: 5ECIPatient ID: [id number] Room: Gender: 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: [id number]: 1970 Requested By: DARRION Cho Number: [id number] Lawson MD: Rene Patterson MeasurementsIntervals [place] Rate: 61 P: 72PR: 152 QRS: 55QRSD: 106 T: 63QT: 398 QTc: 400 Interpretive StatementsSINUS RHYTHMPOSSIBLE RIGHT VENTRICULAR CONDUCTION DELAY [RSR (QR) IN V1/V2]Electronically Signed On 01-22-2022 8:30:45 CDT by Rene TherOxCar Rentals MarketOuachita County Medical CenterBacula Systems12 Lead [id number] 15:46:1012 LEAD EKG FOR [facility] Test Date: 0364-56-56Zbl Name: DORA JOSEPH Department: 5ECIPatient ID: [id number] Room: Gender: 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: [id number]: 1970 Requested By: DARRION Cho Number: [id number] Reading MD: Rene Patterson MeasurementsIntervals [place] Rate: 61 P: 72PR: 152 QRS: 55QRSD: 106 T: 63QT: 398 QTc: 400 Interpretive StatementsSINUS RHYTHMPOSSIBLE RIGHT VENTRICULAR CONDUCTION DELAY [RSR (QR) IN V1/V2]Electronically Signed On 01-22-2022 8:30:45 CDT by Rene TherOxCar Rentals MarketCompaBacula Systems12 Lead [id number] 15:46:1012 LEAD EKG FOR [facility] Test Date: 2930-95-57Ddq Name: DORA JOSEPH Department: 5ECIPatient ID: [id number] Room: Gender: 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: [id number]: 1970 Requested By: DARRION Cho Number: [id number] Reading MD: Rene Patterson MeasurementsIntervals [place] Rate: 61 P: 72PR: 152 QRS: 55QRSD: 106 T: 63QT: 398 QTc: 400 Interpretive StatementsSINUS RHYTHMPOSSIBLE RIGHT VENTRI CULAR CONDUCTION DELAY [RSR (QR) IN V1/V2]Electronically Signed On 01-22-2022 8:30:45 CDT by Rene TherOxChrisAmerican BioCareCompaguadalupe county hospital Egflfq64 Lead [id number] 15:46:1012 LEAD EKG FOR [facility] Test Date: 3096-22-81Yun Name: DORA JOSEPH Department: 5ECIPatient ID: [id number] Room: Gender: 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: [id number]: 1970 Requested By: DARRION Cho Number: [id number] Reading MD: Rene Patterson MeasurementsIntervals [place] Rate: 61 P: 72PR: 152 QRS: 55QRSD: 106 T: 63QT: 398 QTc: 400 Interpretive StatementsSINUS RHYTHMPOSSIBLE RIGHT VENTRICULAR CONDUCTION DELAY [RSR (QR) IN V1/V2]Electronically Signed On 01-22-2022 8:30:45 CDT by Rene TherOxChrisAmerican BioCareOuachita County Medical CenterBacula Systems12 Lead [id number] 15:46:1012 LEAD EKG FOR [facility] Test Date: 6910-27-76Isa Name: DORA JOSEPH Department: 5ECIPatient ID: [id number] Room: Gender: 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: [id number]: 1970 Requested By: DARRION Cho Number: [id number] Reading MD: Rene Patterson MeasurementsIntervals [place] Rate: 61 P: 72PR: 152 QRS: 55QRSD: 106 T: 63QT: 398 QTc: 400 Interpretive StatementsSINUS RHYTHMPOSSIBLE RIGHT VENTRICULAR CONDUCTION DELAY [RSR (QR) IN V1/V2]Electronically Signed On 01-22-2022 8:30:45 CDT by Rene TherOxCar Rentals MarketOuachita County Medical CenterBacula Systems12 Lead [id number] 15:46:1012 LEAD EKG FOR [facility] Test Date: 3635-03-58Apj Name: DORA JOSEPH Department: 5ECIPatient ID: [id number] Room: Gender: 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: [id number]: 1970 Requested By: DARRION Cho Number: [id number] Reading MD: Rene Patterson MeasurementsIntervals [place] Rate: 61 P: 72PR: 152 QRS: 55QRSD: 106 T: 63QT: 398 QTc: 400 Interpretive StatementsSINUS RHYTHMPOSSIBLE RIGHT VENTRICULAR CONDUCTION DELAY [RSR (QR) IN V1/V2]Electronically Signed On 01-22-2022 8:30:45 CDT by Rene Val[place] [address] Lead [id number] 15:46:1012 LEAD EKG FOR [facility] Test Date: 9315-94-23Iet Name: DORA JOSEPH Department: 5EPatient ID: [id number] Room: Gender: 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: [id number]: 1970 Requested By: DARRION Cho Number: [id number] Reading MD: Rene Patterson MeasurementsIntervals [place] Rate: 61 P: 72PR: 152 QRS: 55QRSD: 106 T: 63QT: 398 QTc: 400 Interpretive StatementsSINUS RHYTHMPOSSIBLE RIGHT VENTRI CULAR CONDUCTION DELAY [RSR (QR) IN V1/V2]Electronically Signed On 01-22-2022 8:30:45 CDT by Rene [place] [address] Lead [id number] 15:46:1012 LEAD EKG FOR [facility] Test Date: 4515-16-97Nfs Name: DORA JOSEPH Department: 5ECIPatient ID: [id number] Room: Gender: 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: [id number]: 1970 Requested By: DARRION Cho Number: [id number] Reading MD: Rene Patterson MeasurementsIntervals [place] Rate: 61 P: 72PR: 152 QRS: 55QRSD: 106 T: 63QT: 398 QTc: 400 Interpretive StatementsSINUS RHYTHMPOSSIBLE RIGHT VENTRICULAR CONDUCTION DELAY [RSR (QR) IN V1/V2]Electronically Signed On 01-22-2022 8:30:45 CDT by Rene RacharisseanSMSHarris Zwnbhw46 Lead [id number] 15:46:1012 LEAD EKG FOR [facility] Test Date: 7947-75-77Nfz Name: DORA JOSEPH Department: 5ECIPatient ID: [id number] Room: Gender: 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: [id number]: 1970 Requested By: DARRION Cho Number: [id number] Reading MD: Rene Patterson MeasurementsIntervals [place] Rate: 61 P: 72PR: 152 QRS: 55QRSD: 106 T: 63QT: 398 QTc: 400 Interpretive StatementsSINUS RHYTHMPOSSIBLE RIGHT VENTRICULAR CONDUCTION DELAY [RSR (QR) IN V1/V2]Electronically Signed On 01-22-2022 8:30:45 CDT by Rene Ardenris Ncfgeo53 Lead [id number] 15:46:1012 LEAD EKG FOR [facility] Test Date: 4978-08-47Hoj Name: DORA JOSEPH Department: 5ECIPatient ID: [id number] Room: Gender: 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: [id number]: 1970 Requested By: DARRION Cho Number: [id number] Reading MD: Rene Patterson MeasurementsIntervals [place] Rate: 61 P: 72PR: 152 QRS: 55QRSD: 106 T: 63QT: 398 QTc: 400 Interpretive StatementsSINUS RHYTHMPOSSIBLE RIGHT VENTRICULAR CONDUCTION DELAY [RSR (QR) IN V1/V2]Electronically Signed On 01-22-2022 8:30:45 CDT by Rene SadiCTComparis Omzamp28 Lead [id number] 15:46:1012 LEAD EKG FOR [facility] Test Date: 7707-82-51Bxs Name: DORA JOSEPH Department: 5ECIPatient ID: [id number] Room: Gender: 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: [id number]: 1970 Requested By: DARRION Cho Number: [id number] Reading MD: Rene Patterson MeasurementsIntervals [place] Rate: 61 P: 72PR: 152 QRS: 55QRSD: 106 T: 63QT: 398 QTc: 400 Interpretive StatementsSINUS RHYTHMPOSSIBLE RIGHT VENT RICULAR CONDUCTION DELAY [RSR (QR) IN V1/V2]Electronically Signed On 01-22-2022 8:30:45 CDT by Rene Valle [facility] 1+2 Ab+HIV1 p24 Ag SerPl Ql [place] 2022-01-18 07:02:58 Test Item Value Reference Range Interpretation Comments HIV 1+2 Ab+HIV1 p24 Ag SerPl Ql [place] NEGATIVE Negative (test code = 97482-6) [id number] 21:23:2512 LEAD EKG FOR [facility] Test Date: 6539-27-75Dfg Name: DORA JOSEPH Department: 5520Patient ID: [id number] Room: 9D62Mmbmui: Pipe Fitter Helper: : 1970 Requested By: KARIN BASSETT AOrder Number: [id number] Reading MD: Chiara Calles MeasurementsIntervals [place] Rate: 72 P: 90PR:157 QRS: 87QRSD: 105 T: 90QT: 360 QTc: 384 Interpretive StatementsSINUS RHYTHMPOSSIBLE RIGHT VENTRICULAR CONDUCTION DELAY [RSR (QR) IN V1/V2]EARLY REPOLARIZATION [ST ELEVATION WITH NORMALLY INFLECTED T- WAVE]Electronically Signed On 01-17-2022 13:02:30 CDT by Chiara DavisAdam V[place] 34289022-05-26 21:23:2512 LEAD EKG FOR [facility] Test Date: 4469-28-68Npr Name: DORA JOSEPH Department: 5520Patient ID: [id number] Room: 7W83Gwtzli: 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: : 1970 Requested By: KARIN BASSETT AOrder Number: [id number] Reading : Chiara Calles MeasurementsIntervals [place] Rate: 72 P: 90PR:157 QRS: 87QRSD: 105 T: 90QT: 360 QTc: 384 Interpretive StatementsSINUS RHYTHMPOSSIBLE RIGHT VENTRICULAR CONDUCTION DELAY [RSR (QR) IN V1/V2]EARLY REPOLARIZATION [ST ELEVATION WITH NORMALLY INFLECTED T- WAVE]Electronically Signed On 01-17-2022 13:02:30 CDT by [facility] HospitalSiSenseRyan [place] [address]JtpevlTJG9691-01-07 21:23:2512 LEAD EKG FOR [facility] Test Date: 1926-74-74Oqy Name: DORA JOSEPH Department: 5520Patient ID: [id number] Room: 0S35Nopvpk: 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: : 1970 Requested By: KARIN BASSETT AOrder Number: [id number] Reading MD: Chiara Calles MeasurementsIntervals [place] Rate: 72 P: 90PR: 157 QRS: 87QRSD: 105 T: 90QT: 360 QTc: 384 Interpretive StatementsSINUS RHYTHMPOSSIBLE RIGHT VENTRICULAR CONDUCTION DELAY [RSR (QR) IN V1/V2]EARLY REPOLARIZATION [ST ELEVATION WITH NORMALLY INFLECTED T- WAVE]Electronically Signed On 01-17-2022 13:02:30 CDT by [facility] SyrenaicaRyan [place] [address]FdeeqmIAR5913-94-36 21:23:2512 LEAD EKG FOR [facility] Test Date: 6364-22-86Cnq Name: DORA JOSEPH Department: 5520Patient ID: [id number] Room: 9W16Apfawr: 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: : 1970 Requested By: KARIN BASSETT AOrder Number: [id number] Reading MD: Chiara Calles MeasurementsIntervals [place] Rate: 72 P: 90PR: 157 QRS: 87QRSD: 105 T: 90QT: 360 QTc: 384 Interpretive StatementsSINUS RHYTHMPOSSIBLE RIGHT VENTRICULAR CONDUCTION DELAY [RSR (QR) IN V1/V2]EARLY REPOLARIZATION [ST ELEVATION WITH NORMALLY INFLECTED T-W AVE]Electronically Signed On 01-17-2022 13:02:30 CDT by [facility]/NhrmcPoliglotaRyan [place]ille [address]QupavpMPM3850-90-24 21:23:2512 LEAD EKG FOR [facility] Test Date: 3921-20-11Tui Name: DORA JOSEPH Department: 5520Patient ID: [id number] Room: 1B65Lnhnvr: 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: : 1970 Requested By: JESSICA AOrder Number: [id number] Reading MD: Chiara Calles MeasurementsIntervals [place] Rate: 72 P: 90PR:157 QRS: 87QRSD: 105 T: 90QT: 360 QTc: 384 Interpretive StatementsSINUS RHYTHMPOSSIBLE RIGHT VENTRICULAR CONDUCTION DELAY [RSR (QR) IN V1/V2]EARLY REPOLARIZATION [ST ELEVATION WITH NORMALLY INFLECTED T- WAVE]Electronically Signed On 01-17-2022 13:02:30 CDT by Chiara [place]renaicaRyan [place] [address]IepubbKYQ5539-49-97 21:23:2512 LEAD EKG FOR [facility] Test Date: 4641-41-72Wwr Name: DORA JOSEPH Department: 5520Patient ID: [id number] Room: 2V33Ehqtag: 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: : 1970 Requested By: KARIN BASSETT AOrder Number: [id number] Reading MD: Chiara Calles MeasurementsIntervals [place] Rate: 72 P: 90PR:157 QRS: 87QRSD: 105 T: 90QT: 360 QTc: 384 Interpretive StatementsSINUS RHYTHMPOSSIBLE RIGHT VENTRICULAR CONDUCTION DELAY [RSR (QR) IN V1/V2]EARLY REPOLARIZATION [ST ELEVATION WITH NORMALLY INFLECTED T- WAVE]Electronically Signed On 01-17-2022 13:02:30 CDT by [facility] Healthcarerobert SyrenaicaKlickitat Valley HealthSjaccnMMM1544-10-98 21:23:2512 LEAD EKG FOR [facility] Test Date: 4396-99-44Hrs Name: DORA CHIGNIK Department: 5520Patient ID: [id number] Room: 3C58Mvkudv: 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: : 1970 Requested By: KARIN BASSETT AOrder Number: [id number] Reading MD: Chiara Calles MeasurementsIntervals [place] Rate: 72 P: 90PR:157 QRS: 87QRSD: 105 T: 90QT: 360 QTc: 384 Interpretive StatementsSINUS RHYTHMPOSSIBLE RIGHT VENTRICULAR CONDUCTION DELAY [RSR (QR) IN V1/V2]EARLY REPOLARIZATION [ST ELEVATION WITH NORMALLY INFLECTED T- WAVE]Electronically Signed On 01-17-2022 13:02:30 CDT by [facility] ServicesWay[facility] Main CampusG2022-05-26 21:23:2512 LEAD EKG FOR [facility] Test Date: 9452-05-46Muk Name: DORA JOSEPH Department: 5520Patient ID: [id number] Room: 8R90Zpxhxw: 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: : 1970 Requested By: JESSICA Reevesder Number: [id number] Reading MD: Chiara Calles MeasurementsIntervals [place] Rate: 72 P: 90PR: 157 QRS: 87QRSD: 105 T: 90QT: 360 QTc: 384 Interpretive StatementsSINUS RHYTHMPOSSIBLE RIGHT VENTRICULAR CONDUCTION DELAY [RSR (QR) IN V1/V2]EARLY REPOLARIZATION [ST ELEVATION WITH NORMALLY INFLECTEDT- WAVE]Electronically Signed On 01-17-2022 13:02:30 CDT by InfobloxG2022-05-26 21:23:2512 LEAD EKG FOR [facility] Test Date: 7905-56-11Vah Name: DORA JOSEPH Department: 5520Patient ID: [id number] Room: 9O98Zrfdab: 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: : 1970 Requested By: KARIN Ryan Number: [id number] Reading MD: Chiara Calles MeasurementsIntervals [place] Rate: 72 P: 90PR:157 QRS: 87QRSD: 105 T: 90QT: 360 QTc: 384 Interpretive StatementsSINUS RHYTHMPOSSIBLE RIGHT VENTRICULAR CONDUCTION DELAY [RSR (QR) IN V1/V2]EARLY REPOLARIZATION [ST ELEVATION WITH NORMALLY INFLECTED T- WAVE]Electronically Signed On 01-17-2022 13:02:30 CDT by Achievo(R) Corporationrobert SyrenaicaOuachita County Medical CenterBacula SystemsFnkpjcUSO6565-10-55 21:23:2512 LEAD EKG FOR [facility] Test Date: 8932-54-84Shg Name: DORA JOSEPH Department: 5520Patient ID: [id number] Room: 5H05Cxkids: 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: : 1970 Requested By: KARIN BASSETT AOrder Number: [id number] Reading MD: Chiara Calles MeasurementsIntervals [place] Rate: 72 P: 90PR:157 QRS: 87QRSD: 105 T: 90QT: 360 QTc: 384 Interpretive StatementsSINUS RHYTHMPOSSIBLE RIGHT VENTRICULAR CONDUCTION DELAY [RSR (QR) IN V1/V2]EARLY REPOLARIZATION [ST ELEVATION WITH NORMALLY INFLECTED T- WAVE]Electronically Signed On 01-17-2022 13:02:30 CDT by [facility] HealthcareFindItRyan [place]ille [address]OolvzcHNE8637-82-03 21:23:2512 LEAD EKG FOR [facility] Test Date: 8495-95-13Tep Name: DORA JOSEPH Department: 5520Patient ID: [id number] Room: 6B74Wzzkzy: 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: : 1970 Requested By: KARIN BASSETT AOrder Number: [id number] Reading MD: Chiara Calles MeasurementsIntervals [place] Rate: 72 P: 90PR: 157 QRS: 87QRSD: 105 T: 90QT: 360 QTc: 384 Interpretive StatementsSINUS RHYTHMPOSSIBLE RIGHT VENTRICULAR CONDUCTION DELAY [RSR (QR) IN V1/V2]EARLY REPOLARIZATION [ST ELEVATION WITH NORMALLY INFLECTED T- WAVE]Electronically Signed On 01-17-2022 13:02:30 CDT by [facility] HealthcareFindItOuachita County Medical CenterPar8o FcdrrjJWT1310-58-25 21:23:2512 LEAD EKG FOR [facility] Test Date: 3605-43-39Gjb Name: DORA JOSEPH Department: 5520Patient ID: [id number] Room: 4I30Itqbqp: 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: : 1970 Requested By: KARIN BASSETT AOrder Number: [id number] Reading MD: Chiara Calles MeasurementsIntervals [place] Rate: 72 P: 90PR:157 QRS: 87QRSD: 105 T: 90QT: 360 QTc: 384 Interpretive StatementsSINUS RHYTHMPOSSIBLE RIGHT VENTRICULAR CONDUCTION DELAY [RSR (QR) IN V1/V2]EARLY REPOLARIZATION [ST ELEVATION WITH NORMALLY INFLECTED T- WAVE]Electronically Signed On 01-17-2022 13:02:30 CDT by NoahOuachita County Medical CenterPar8o MlkdzwUUC2533-81-14 21:23:2512 LEAD EKG FOR [facility] Test Date: 7823-05-73Byh Name: DORA JOSEPH Department: 5520Patient ID: [id number] Room: 9A05Brvypt: 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: : 1970 Requested By: JESSICA AOrder Number: [id number] Reading MD: Chiara Calles MeasurementsIntervals [place] Rate: 72 P: 90PR:157 QRS: 87QRSD: 105 T: 90QT: 360 QTc: 384 Interpretive StatementsSINUS RHYTHMPOSSIBLE RIGHT VENTRICULAR CONDUCTION DELAY [RSR (QR) IN V1/V2]EARLY REPOLARIZATION [ST ELEVATION WITH NORMALLY INFLECTED T- WAVE]Electronically Signed On 01-17-2022 13:02:30 CDT by [facility] HealthcareMonitor My MedsEKG2022-05-26 21:23:2512 LEAD EKG FOR [facility] Test Date: 9209-50-17Lqa Name: DORA PAEZRY Department: 5520Patient ID: [id number] Room: 3Q21Svlakc: 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: : 1970 Requested By: KARIN BASSETT AOrder Number: [id number] Reading MD: Chiara Calles MeasurementsIntervals [place] Rate: 72 P: 90PR: 157 QRS: 87QRSD: 105 T: 90QT: 360 QTc: 384 Interpretive StatementsSINUS RHYTHMPOSSIBLE RIGHT VENTRICULAR CONDUCTION DELAY [RSR (QR) IN V1/V2]EARLY REPOLARIZATION [ST ELEVATION WITH NORMALLY INFLECTED T- WAVE]Electronically Signed On 01-17-2022 13:02:30 CDT by RobotsAliveEKG2022-05-26 21:23:2512 LEAD EKG FOR [facility] Test Date: 4863-58-46Vco Name: DORA CHIGNIK Department: 5520Patient ID: [id number] Room: 5L87Edsscm: 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: : 1970 Requested By: KARIN BASSETT AOrder Number: [id number] Reading MD: Chiara Calles MeasurementsIntervals [place] Rate: 72 P: 90PR: 157 QRS: 87QRSD: 105 T: 90QT: 360 QTc: 384 Interpretive StatementsSINUS RHYTHMPOSSIBLE RIGHT VENTRICULAR CONDUCTION DELAY [RSR (QR) IN V1/V2]EARLY REPOLARIZATION [ST ELEVATION WITH NORMALLY INFLECTED T- WAVE]Electronically Signed On 01-17-2022 13:02:30 CDT by [place] [address]22-05-26 21:23:2512 LEAD EKG FOR [facility] Test Date: 4536-54-11Avr Name: DORA JOSEPH Department: 5520Patient ID: [id number] Room: 6C41Laandv: 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: : 1970 Requested By: JESSICA AOrder Number: [id number] Reading MD: Chiara Calles MeasurementsIntervals [place] Rate: 72 P: 90PR: 157 QRS: 87QRSD: 105 T: 90QT: 360 QTc: 384 Interpretive StatementsSINUS RHYTHMPOSSIBLE RIGHT VENTRICULAR CONDUCTION DELAY [RSR (QR) IN V1/V2]EARLY REPOLARIZATION [ST ELEVATION WITH NORMALLY INFLECTED T- WAVE]Electronically Signed On 01-17-2022 13:02:30 CDT by [facility] [employer] Systemsphoenix children's hospitalPoliglotaKlickitat Valley HealthBifwzvMRP3157-39-71 21:23:2512 LEAD EKG FOR [facility] Test Date: 1059-39-10Mkn Name: DORA JOSEPH Department: 5520Patient ID: [id number] Room: 5B98Nqlhgh: 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: : 1970 Requested By: KARIN BASSETT AOrder Number: [id number] Reading MD: Chiara Calles MeasurementsIntervals [place] Rate: 72 P: 90PR:157 QRS: 87QRSD: 105 T: 90QT: 360 QTc: 384 Interpretive StatementsSINUS RHYTHMPOSSIBLE RIGHT VENTRICULAR CONDUCTION DELAY [RSR (QR) IN V1/V2]EARLY REPOLARIZATION [ST ELEVATION WITH NORMALLY INFLECTED T- WAVE]Electronically Signed On 01-17-2022 13:02:30 CDT by [facility]NhrmcPoliglotaRyan [place] [address]KihceoSRW1074-65-84 21:23:2512 LEAD EKG FOR [facility] Test Date: 4502-78-83Lwy Name: DORA JOSEPH Department: 5520Patient ID: [id number] Room: 7C99Datyhj: 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: : 1970 Requested By: KARIN BASESTT AOrder Number: [id number] Reading MD: Chiara Calles MeasurementsIntervals [place] Rate: 72 P: 90PR: 157 QRS: 87QRSD: 105 T: 90QT: 360 QTc: 384 Interpretive StatementsSINUS RHYTHMPOSSIBLE RIGHT VENTRICULAR CONDUCTION DELAY [RSR (QR) IN V1/V2]EARLY REPOLARIZATION [ST ELEVATION WITH NORMALLY INFLECTED T- WAVE]Electronically Signed On 01-17-2022 13:02:30 CDT by Chiara DavisThe Jewish HospitalRS-CoV-2 ORF1ab Resp Ql OLENA+qwrco8686-81-11 19:57:49 Test Item Value Reference Range Interpretation Comments Hospitalized? (test No code = 61679-6) ICU? (test code = No 12956-3) Symptomatic as No defined by CDC? (test code = 73898-7) Employed in No Healthcare? (test code = 48053-9) Resident in a No congregate care setting (including nursing homes, residential care for people with intellectual and developmental disabilities, psychiatric treatment facilities, group homes, board and care homes, homeless senior care, foster care or other): (test code = 10659-4) SARS-CoV-2 ORF1ab NOT DETECTED Not Detected INTERPRETA TION: No Resp Ql OLENA+probe detectable levels of (test code = SARS-CoV-2 95119-2) Coronavirus (COVID-19) were present in this patient's [...] SARS-CoV-2 mole cular diagnostic assa y utilizes [employer]ist Mediated Amplification ( TMA) technology to r apidly detect the SARS -CoV-2 (COVID-19) viru s from respiratory adriana ples. In accordance with\\XC2A0\\the FDA's guidance docume nt "Policy for Diagnostic Test s for Coronavirus Disease-2019 [facility] the [facility] Emergency", thi s test was developed, and its performance characteristics were verified by the [facility] molecular diagn ostics laboratory and is authorized for clinical diagno stic use. \\XC2A0\\[facility] is certified under the Clinical Labora tory Improvement Amendments (CLI A) as qualified to pe rform high complexity clinical labora tory testing. [facility] docked xhwmes4120-04-35 13:57:55 Test Item Value Reference Range Interpretation Comments Creatinine POC (test 2.4 mg/dL 0.6-1.3 H Physici an Notified code = 67411595) eGFR If non- Am 30 See_Comment L [Aut omated message] (test code = 08681508) The s ystem which generated this result transmit dain reference range : >=90 mL/min/1.7 3 m2. The reference r meredith was not used to interpret this result as normal/abnormal . eGFR If Am (test 35 See_Comment L [A utomated message] code = 95704382) The system which generated this result transmit dain reference range : >=90 mL/min/1.7 3 m2. The reference r meredith was not used to interpret this result as normal/abnormal . Lab Interpretation (test Abnormal code = 15422-2) [facility] CREATININE POC docked emwpoc9845-77-80 13:57:55 Test Item Value Reference Range Interpretation Comments Creatinine POC (test 2.4 mg/dL 0.6-1.3 H Physici an Notified code = 10411978) eGFR If non- Am 30 See_Comment L [Aut omated message] (test code = 36673696) The s ystem which generated this result transmit dain reference range : >=90 mL/min/1.7 3 m2. The reference r meredith was not used to interpret this result as normal/abnormal . eGFR If Am (test 35 See_Comment L [A utomated message] code = 95713365) The system which generated this result transmit dain reference range : >=90 mL/min/1.7 3 m2. The reference r meredith was not used to interpret this result as normal/abnormal . Lab Interpretation (test Abnormal code = 72313-0) [facility] CREATININE POC docked kqqhvv6480-03-17 13:57:55 Test Item Value Reference Range Interpretation Comments Creatinine POC (test 2.4 mg/dL 0.6-1.3 H Physici an Notified code = 04488391) eGFR If non- Am 30 See_Comment L [Aut omated message] (test code = 75112866) The s ystem which generated this result transmit dain reference range : >=90 mL/min/1.7 3 m2. The reference r meredith was not used to interpret this result as normal/abnormal . eGFR If Am (test 35 See_Comment L [A utomated message] code = 78611950) The system which generated this result transmit dain reference range : >=90 mL/min/1.7 3 m2. The reference r meredith was not used to interpret this result as normal/abnormal . Lab Interpretation (test Abnormal code = 73081-3) [facility] CREATININE POC docked fuugis1176-00-60 13:57:55 Test Item Value Reference Range Interpretation Comments Creatinine POC (test 2.4 mg/dL 0.6-1.3 H Physici an Notified code = 07466310) eGFR If non- Am 30 See_Comment L [Aut omated message] (test code = 63213234) The s ystem which generated this result transmit dain reference range : >=90 mL/min/1.7 3 m2. The reference r meredith was not used to interpret this result as normal/abnormal . eGFR If Am (test 35 See_Comment L [A utomated message] code = [id number]) The system which generated this result transmit dain reference range : >=90 mL/min/1.7 3 m2. The reference r meredith was not used to interpret this result as normal/abnormal . Lab Interpretation (test Abnormal code = 46824-5) [facility] CREATININE POC docked [id number] 13:57:55 Test Item Value Reference Range Interpretation Comments Creatinine POC (test 2.4 mg/dL 0.6-1.3 H Physici an Notified code = [id number]) eGFR If non- Am 30 See_Comment L [Aut omated message] (test code = [id number]) The s ystem which generated this result transmit dain reference range : >=90 mL/min/1.7 3 m2. The reference r meredith was not used to interpret this result as normal/abnormal . eGFR If Am (test 35 See_Comment L [A utomated message] code = 54805602) The system which generated this result transmit dain reference range : >=90 mL/min/1.7 3 m2. The reference r meredith was not used to interpret this result as normal/abnormal . Lab Interpretation (test Abnormal code = 01198-7) [facility] CREATININE POC docked [id number] 13:57:55 Test Item Value Reference Range Interpretation Comments Creatinine POC (test 2.4 mg/dL 0.6-1.3 H Physici an Notified code = 36489254) eGFR If non- Am 30 See_Comment L [Aut omated message] (test code = 08920570) The s ystem which generated this result transmit dain reference range : >=90 mL/min/1.7 3 m2. The reference r meredith was not used to interpret this result as normal/abnormal . eGFR If Am (test 35 See_Comment L [A utomated message] code = 11262923) The system which generated this result transmit dain reference range : >=90 mL/min/1.7 3 m2. The reference r meredith was not used to interpret this result as normal/abnormal . Lab Interpretation (test Abnormal code = 61606-4) [facility] CREATININE POC docked [id number] 13:57:55 Test Item Value Reference Range Interpretation Comments Creatinine POC (test 2.4 mg/dL 0.6-1.3 H Physici an Notified code = 67160085) eGFR If non- Am 30 See_Comment L [Aut omated message] (test code = 26225085) The s ystem which generated this result transmit dain reference range : >=90 mL/min/1.7 3 m2. The reference r meredith was not used to interpret this result as normal/abnormal . eGFR If Am (test 35 See_Comment L [A utomated message] code = 44726496) The system which generated this result transmit dain reference range : >=90 mL/min/1.7 3 m2. The reference r meredith was not used to interpret this result as normal/abnormal . Lab Interpretation (test Abnormal code = 15166-1) [facility] [id number] 13:57:55 Test Item Value Reference Range Interpretation Comments Creatinine POC (test 2.4 mg/dL 0.6-1.3 H Physici an Notified code = 09324561) eGFR If non- Am 30 See_Comment L [Aut omated message] (test code = 16669756) The s ystem which generated this result transmit dain reference range : >=90 mL/min/1.7 3 m2. The reference r meredith was not used to interpret this result as normal/abnormal . eGFR If Am (test 35 See_Comment L [A utomated message] code = 04215298) The system which generated this result transmit dain reference range : >=90 mL/min/1.7 3 m2. The reference r meredith was not used to interpret this result as normal/abnormal . Lab Interpretation (test Abnormal code = 32694-9) [facility] CREATININE POC docked [id number] 13:57:55 Test Item Value Reference Range Interpretation Comments Creatinine POC (test 2.4 mg/dL 0.6-1.3 H Physici an Notified code = 80966543) eGFR (test code = 30 See_Comment L [Automate d message] 77786731) The system [employer] generated this result transmit dain reference range : >=90 mL/min/1.7 3 m2. The reference r meredith was not used to interpret this result as normal/abnormal . eGFR If Am (test 35 See_Comment L [A utomated message] code = 44365896) The system which generated this result transmit dain reference range : >=90 mL/min/1.7 3 m2. The reference r meredith was not used to interpret this result as normal/abnormal . Lab Interpretation (test Abnormal code = 73084-8) [facility] [id number] 13:57:55 Test Item Value Reference Range Interpretation Comments Creatinine POC (test 2.4 mg/dL 0.6-1.3 H Physici an Notified code = 35731247) eGFR (test code = 30 See_Comment L [Automate d message] 75201869) The system [employer] generated this result transmit dain reference range : >=90 mL/min/1.7 3 m2. The reference r meredith was not used to interpret this result as normal/abnormal . eGFR If Am (test 35 See_Comment L [A utomated message] code = 79512680) The system which generated this result transmit dain reference range : >=90 mL/min/1.7 3 m2. The reference r meredith was not used to interpret this result as normal/abnormal . Lab Interpretation (test Abnormal code = 84981-1) [facility] CREATININE POC docked [id number] 13:57:55 Test Item Value Reference Range Interpretation Comments Creatinine POC (test 2.4 mg/dL 0.6-1.3 H Physici an Notified code = 17409906) eGFR (test code = 30 See_Comment L [Automate d message] 24718096) The system [employer] h generated this result transmit dain reference range : >=90 mL/min/1.7 3 m2. The reference r meredith was not used to interpret this result as normal/abnormal . eGFR If Am (test 35 See_Comment L [A utomated message] code = 77137968) The system which generated this result transmit dain reference range : >=90 mL/min/1.7 3 m2. The reference r meredith was not used to interpret this result as normal/abnormal . Lab Interpretation (test Abnormal code = 05841-4) [facility] CREATININE POC docked [id number] 13:57:55 Test Item Value Reference Range Interpretation Comments Creatinine POC (test 2.4 mg/dL 0.6-1.3 H Physici an Notified code = 71742094) eGFR If non- Am 30 See_Comment L [Aut omated message] (test code = 04542419) The s ystem which generated this result transmit dain reference range : >=90 mL/min/1.7 3 m2. The reference r meredith was not used to interpret this result as normal/abnormal . eGFR If Am (test 35 See_Comment L [A utomated message] code = 67126674) The system which generated this result transmit dain reference range : >=90 mL/min/1.7 3 m2. The reference r meredith was not used to interpret this result as normal/abnormal . Lab Interpretation (test Abnormal code = 72245-4) [facility] CREATININE POC docked [id number] 13:57:55 Test Item Value Reference Range Interpretation Comments Creatinine POC (test 2.4 mg/dL 0.6-1.3 H Physici an Notified code = 08478574) eGFR If non- Am 30 See_Comment L [Aut omated message] (test code = 07965879) The s ystem which generated this result transmit dain reference range : >=90 mL/min/1.7 3 m2. The reference r meredith was not used to interpret this result as normal/abnormal . eGFR If Am (test 35 See_Comment L [A utomated message] code = 52932283) The system which generated this result transmit dain reference range : >=90 mL/min/1.7 3 m2. The reference r meredith was not used to interpret this result as normal/abnormal . Lab Interpretation (test Abnormal code = 23994-7) [facility] CREATININE POC docked [id number] 13:57:55 Test Item Value Reference Range Interpretation Comments Creatinine POC (test 2.4 mg/dL 0.6-1.3 H Physici an Notified code = 81232571) eGFR If non- Am 30 See_Comment L [Aut omated message] (test code = 06925951) The s ystem which generated this result transmit dain reference range : >=90 mL/min/1.7 3 m2. The reference r meredith was not used to interpret this result as normal/abnormal . eGFR If Am (test 35 See_Comment L [A utomated message] code = 72450907) The system which generated this result transmit dain reference range : >=90 mL/min/1.7 3 m2. The reference r meredith was not used to interpret this result as normal/abnormal . Lab Interpretation (test Abnormal code = 65484-1) [facility] [id number] 13:57:55 Test Item Value Reference Range Interpretation Comments Creatinine POC (test 2.4 mg/dL 0.6-1.3 H Physici an Notified code = 85222247) eGFR If non- Am 30 See_Comment L [Aut omated message] (test code = 13454771) The s ystem which generated this result transmit dain reference range : >=90 mL/min/1.7 3 m2. The reference r meredith was not used to interpret this result as normal/abnormal . eGFR If Am (test 35 See_Comment L [A utomated message] code = 94925039) The system which generated this result transmit dain reference range : >=90 mL/min/1.7 3 m2. The reference r meredith was not used to interpret this result as normal/abnormal . Lab Interpretation (test Abnormal code = 78167-8) [facility] CREATININE POC docked [id number] 13:57:55 Test Item Value Reference Range Interpretation Comments Creatinine POC (test 2.4 mg/dL 0.6-1.3 H Physici an Notified code = 00564528) eGFR If non- Am 30 See_Comment L [Aut omated message] (test code = 80621238) The s ystem which generated this result transmit dain reference range : >=90 mL/min/1.7 3 m2. The reference r meredith was not used to interpret this result as normal/abnormal . eGFR If Am (test 35 See_Comment L [A utomated message] code = 04407770) The system which generated this result transmit dain reference range : >=90 mL/min/1.7 3 m2. The reference r meredith was not used to interpret this result as normal/abnormal . Lab Interpretation (test Abnormal code = 01858-5) [facility] CREATININE POC docked [id number] 13:57:55 Test Item Value Reference Range Interpretation Comments Creatinine POC (test 2.4 mg/dL 0.6-1.3 H Physici an Notified code = 30249060) eGFR If non- Am 30 See_Comment L [Aut omated message] (test code = 71387384) The s ystem which generated this result transmit dain reference range : >=90 mL/min/1.7 3 m2. The reference r meredith was not used to interpret this result as normal/abnormal . eGFR If Am (test 35 See_Comment L [A utomated message] code = 67659162) The system which generated this result transmit dain reference range : >=90 mL/min/1.7 3 m2. The reference r meredith was not used to interpret this result as normal/abnormal . Lab Interpretation (test Abnormal code = 12914-5) [facility] CREATININE POC docked [id number] 13:57:55 Test Item Value Reference Range Interpretation Comments Creatinine POC (test 2.4 mg/dL 0.6-1.3 H Physici an Notified code = 65878096) eGFR If non- Am 30 See_Comment L [Aut omated message] (test code = 32459015) The s ystem which generated this result transmit dain reference range : >=90 mL/min/1.7 3 m2. The reference r meredith was not used to interpret this result as normal/abnormal . eGFR If Am (test 35 See_Comment L [A utomated message] code = 50165241) The system which generated this result transmit dain reference range : >=90 mL/min/1.7 3 m2. The reference r meredith was not used to interpret this result as normal/abnormal . Lab Interpretation (test Abnormal code = 77094-0) [facility] BMP POC docked [id number] 13:48:46 Test Item Value Reference Range Interpretation Comments Sodium POC (test code = 126 mmol/L 136-145 L 76219824) Potassium POC (test code 4.4 mmol/L 3.5-5.1 = 00964603) Chloride POC (test code 100 mmol/L 98-107 = 96037291) TCO2 POC (test code = 17 mmol/L 21-32 L Physic aylin Notified 46596701) Urea Nitrogen POC (test 36 mg/dL 7-18 H code = 16044506) Glucose POC (test code = 114 mg/dL 74-106 H 96537041) Hemoglobin POC (test 11.9 g/dL 12-16 L code = 62442632) Hematocrit POC (test 35.0 % 37.0-47.0 L code = 79800979) Lab Interpretation (test Abnormal code = 19279-3) [facility] BMP POC docked [id number] 13:48:46 Test Item Value Reference Range Interpretation Comments Sodium POC (test code = 126 mmol/L 136-145 L 95169847) Potassium POC (test code 4.4 mmol/L 3.5-5.1 = 10980849) Chloride POC (test code 100 mmol/L 98-107 = 48243470) TCO2 POC (test code = 17 mmol/L 21-32 L Physic aylin Notified 69275792) Urea Nitrogen POC (test 36 mg/dL 7-18 H code = 56298294) Glucose POC (test code = 114 mg/dL 74-106 H 95094388) Hemoglobin POC (test 11.9 g/dL 12-16 L code = 80782145) Hematocrit POC (test 35.0 % 37.0-47.0 L code = 51555687) Lab Interpretation (test Abnormal code = 52537-6) [facility] BMP POC docked [id number] 13:48:46 Test Item Value Reference Range Interpretation Comments Sodium POC (test code = 126 mmol/L 136-145 L 78813556) Potassium POC (test code 4.4 mmol/L 3.5-5.1 = 65577348) Chloride POC (test code 100 mmol/L 98-107 = 20214556) TCO2 POC (test code = 17 mmol/L 21-32 L Physic aylin Notified 75423757) Urea Nitrogen POC (test 36 mg/dL 7-18 H code = 09115512) Glucose POC (test code = 114 mg/dL 74-106 H 17732607) Hemoglobin POC (test 11.9 g/dL 12-16 L code = 31000100) Hematocrit POC (test 35.0 % 37.0-47.0 L code = 54001861) Lab Interpretation (test Abnormal code = 51612-6) [facility] POC docked [id number] 13:48:46 Test Item Value Reference Range Interpretation Comments Sodium POC (test code = 126 mmol/L 136-145 L 72208377) Potassium POC (test code 4.4 mmol/L 3.5-5.1 = 41801776) Chloride POC (test code 100 mmol/L 98-107 = 26283760) TCO2 POC (test code = 17 mmol/L 21-32 L Physic aylin Notified 66196749) Urea Nitrogen POC (test 36 mg/dL 7-18 H code = 33060656) Glucose POC (test code = 114 mg/dL 74-106 H 73195478) Hemoglobin POC (test 11.9 g/dL 12-16 L code = 83398391) Hematocrit POC (test 35.0 % 37.0-47.0 L code = 68802488) Lab Interpretation (test Abnormal code = 08343-7) [facility] POC docked [id number] 13:48:46 Test Item Value Reference Range Interpretation Comments Sodium POC (test code = 126 mmol/L 136-145 L 48216758) Potassium POC (test code 4.4 mmol/L 3.5-5.1 = 05791062) Chloride POC (test code 100 mmol/L 98-107 = 42786774) TCO2 POC (test code = 17 mmol/L 21-32 L Physic aylin Notified 87903141) Urea Nitrogen POC (test 36 mg/dL 7-18 H code = 86628235) Glucose POC (test code = 114 mg/dL 74-106 H 54391040) Hemoglobin POC (test 11.9 g/dL 12-16 L code = 99913959) Hematocrit POC (test 35.0 % 37.0-47.0 L code = 69288387) Lab Interpretation (test Abnormal code = 42209-4) [facility] POC docked [id number] 13:48:46 Test Item Value Reference Range Interpretation Comments Sodium POC (test code = 126 mmol/L 136-145 L 91132349) Potassium POC (test code 4.4 mmol/L 3.5-5.1 = 85178486) Chloride POC (test code 100 mmol/L 98-107 = 13042108) TCO2 POC (test code = 17 mmol/L 21-32 L Physic aylin Notified 47819992) Urea Nitrogen POC (test 36 mg/dL 7-18 H code = 76155314) Glucose POC (test code = 114 mg/dL 74-106 H 42521492) Hemoglobin POC (test 11.9 g/dL 12-16 L code = 49044134) Hematocrit POC (test 35.0 % 37.0-47.0 L code = 91289253) Lab Interpretation (test Abnormal code = 49375-3) [facility] POC docked [id number] 13:48:46 Test Item Value Reference Range Interpretation Comments Sodium POC (test code = 126 mmol/L 136-145 L 62013193) Potassium POC (test code 4.4 mmol/L 3.5-5.1 = 53319688) Chloride POC (test code 100 mmol/L 98-107 = 39048235) TCO2 POC (test code = 17 mmol/L 21-32 L Physic aylin Notified 02710976) Urea Nitrogen POC (test 36 mg/dL 7-18 H code = 44977947) Glucose POC (test code = 114 mg/dL 74-106 H 32905124) Hemoglobin POC (test 11.9 g/dL 12-16 L code = 67750471) Hematocrit POC (test 35.0 % 37.0-47.0 L code = 45131722) Lab Interpretation (test Abnormal code = 77901-3) [facility] POC docked [id number] 13:48:46 Test Item Value Reference Range Interpretation Comments Sodium POC (test code = 126 mmol/L 136-145 L 01754559) Potassium POC (test code 4.4 mmol/L 3.5-5.1 = 36529980) Chloride POC (test code 100 mmol/L 98-107 = 82058740) TCO2 POC (test code = 17 mmol/L 21-32 L Physic aylin Notified 13390521) Urea Nitrogen POC (test 36 mg/dL 7-18 H code = 16665369) Glucose POC (test code = 114 mg/dL 74-106 H 12585480) Hemoglobin POC (test 11.9 g/dL 12-16 L code = 04812816) Hematocrit POC (test 35.0 % 37.0-47.0 L code = 01942851) Lab Interpretation (test Abnormal code = 94172-2) [facility] POC docked [id number] 13:48:46 Test Item Value Reference Range Interpretation Comments Sodium POC (test code = 126 mmol/L 136-145 L 61004035) Potassium POC (test code 4.4 mmol/L 3.5-5.1 = 76019972) Chloride POC (test code 100 mmol/L 98-107 = 33145974) TCO2 POC (test code = 17 mmol/L 21-32 L Physic aylin Notified 08955097) Urea Nitrogen POC (test 36 mg/dL 7-18 H code = 92045097) Glucose POC (test code = 114 mg/dL 74-106 H 78430430) Hemoglobin POC (test 11.9 g/dL 12-16 L code = 85377452) Hematocrit POC (test 35.0 % 37.0-47.0 L code = 77751314) Lab Interpretation (test Abnormal code = 20271-6) [facility] POC docked [id number] 13:48:46 Test Item Value Reference Range Interpretation Comments Sodium POC (test code = 126 mmol/L 136-145 L 50330382) Potassium POC (test code 4.4 mmol/L 3.5-5.1 = 10942956) Chloride POC (test code 100 mmol/L 98-107 = 62975451) TCO2 POC (test code = 17 mmol/L 21-32 L Physic aylin Notified 34739447) Urea Nitrogen POC (test 36 mg/dL 7-18 H code = 05650305) Glucose POC (test code = 114 mg/dL 74-106 H 35291623) Hemoglobin POC (test 11.9 g/dL 12-16 L code = 12009451) Hematocrit POC (test 35.0 % 37.0-47.0 L code = 77229387) Lab Interpretation (test Abnormal code = 02071-2) [facility] POC docked [id number] 13:48:46 Test Item Value Reference Range Interpretation Comments Sodium POC (test code = 126 mmol/L 136-145 L 36646724) Potassium POC (test code 4.4 mmol/L 3.5-5.1 = 47840522) Chloride POC (test code 100 mmol/L 98-107 = 77250311) TCO2 POC (test code = 17 mmol/L 21-32 L Physic aylin Notified 55100481) Urea Nitrogen POC (test 36 mg/dL 7-18 H code = 40339726) Glucose POC (test code = 114 mg/dL 74-106 H 15953202) Hemoglobin POC (test 11.9 g/dL 12-16 L code = 38820719) Hematocrit POC (test 35.0 % 37.0-47.0 L code = 91014525) Lab Interpretation (test Abnormal code = 99651-7) [facility] POC docked [id number] 13:48:46 Test Item Value Reference Range Interpretation Comments Sodium POC (test code = 126 mmol/L 136-145 L 05533621) Potassium POC (test code 4.4 mmol/L 3.5-5.1 = 44054401) Chloride POC (test code 100 mmol/L 98-107 = 08603873) TCO2 POC (test code = 17 mmol/L 21-32 L Physic aylin Notified 72726747) Urea Nitrogen POC (test 36 mg/dL 7-18 H code = 05490346) Glucose POC (test code = 114 mg/dL 74-106 H 53257842) Hemoglobin POC (test 11.9 g/dL 12-16 L code = 48286679) Hematocrit POC (test 35.0 % 37.0-47.0 L code = 09470632) Lab Interpretation (test Abnormal code = 34825-5) [facility] POC docked [id number] 13:48:46 Test Item Value Reference Range Interpretation Comments Sodium POC (test code = 126 mmol/L 136-145 L 49650221) Potassium POC (test code 4.4 mmol/L 3.5-5.1 = 35250247) Chloride POC (test code 100 mmol/L 98-107 = 06492674) TCO2 POC (test code = 17 mmol/L 21-32 L Physic aylin Notified 67977160) Urea Nitrogen POC (test 36 mg/dL 7-18 H code = 66276603) Glucose POC (test code = 114 mg/dL 74-106 H 50950804) Hemoglobin POC (test 11.9 g/dL 12-16 L code = 58084357) Hematocrit POC (test 35.0 % 37.0-47.0 L code = 94717602) Lab Interpretation (test Abnormal code = 08650-2) [facility] POC docked [id number] 13:48:46 Test Item Value Reference Range Interpretation Comments Sodium POC (test code = 126 mmol/L 136-145 L 73746744) Potassium POC (test code 4.4 mmol/L 3.5-5.1 = 90758825) Chloride POC (test code 100 mmol/L 98-107 = 08925364) TCO2 POC (test code = 17 mmol/L 21-32 L Physic aylin Notified 05287523) Urea Nitrogen POC (test 36 mg/dL 7-18 H code = 48025839) Glucose POC (test code = 114 mg/dL 74-106 H 57204292) Hemoglobin POC (test 11.9 g/dL 12-16 L code = 55216502) Hematocrit POC (test 35.0 % 37.0-47.0 L code = 53971448) Lab Interpretation (test Abnormal code = 82311-1) [facility] POC docked [id number] 13:48:46 Test Item Value Reference Range Interpretation Comments Sodium POC (test code = 126 mmol/L 136-145 L 81561428) Potassium POC (test code 4.4 mmol/L 3.5-5.1 = 44915792) Chloride POC (test code 100 mmol/L 98-107 = 02817802) TCO2 POC (test code = 17 mmol/L 21-32 L Physic aylin Notified 85693022) Urea Nitrogen POC (test 36 mg/dL 7-18 H code = 03720597) Glucose POC (test code = 114 mg/dL 74-106 H 30359224) Hemoglobin POC (test 11.9 g/dL 12-16 L code = 27868040) Hematocrit POC (test 35.0 % 37.0-47.0 L code = 65075306) Lab Interpretation (test Abnormal code = 26836-6) [facility] POC docked [id number] 13:48:46 Test Item Value Reference Range Interpretation Comments Sodium POC (test code = 126 mmol/L 136-145 L 92847226) Potassium POC (test code 4.4 mmol/L 3.5-5.1 = 15519079) Chloride POC (test code 100 mmol/L 98-107 = 39749458) TCO2 POC (test code = 17 mmol/L 21-32 L Physic aylin Notified 88415648) Urea Nitrogen POC (test 36 mg/dL 7-18 H code = 59120962) Glucose POC (test code = 114 mg/dL 74-106 H 69520408) Hemoglobin POC (test 11.9 g/dL 12-16 L code = 34765927) Hematocrit POC (test 35.0 % 37.0-47.0 L code = 37430016) Lab Interpretation (test Abnormal code = 11408-7) [facility] BMP POC docked [id number] 13:48:46 Test Item Value Reference Range Interpretation Comments Sodium POC (test code = 126 mmol/L 136-145 L 86853240) Potassium POC (test code 4.4 mmol/L 3.5-5.1 = 35862505) Chloride POC (test code 100 mmol/L 98-107 = 38870227) TCO2 POC (test code = 17 mmol/L 21-32 L Physic aylin Notified 03092289) Urea Nitrogen POC (test 36 mg/dL 7-18 H code = 14211564) Glucose POC (test code = 114 mg/dL 74-106 H 62490826) Hemoglobin POC (test 11.9 g/dL 12-16 L code = 80135669) Hematocrit POC (test 35.0 % 37.0-47.0 L code = 63059652) Lab Interpretation (test Abnormal code = 73851-0) [facility] POC docked [id number] 13:48:46 Test Item Value Reference Range Interpretation Comments Sodium POC (test code = 126 mmol/L 136-145 L 84271077) Potassium POC (test code 4.4 mmol/L 3.5-5.1 = 65087781) Chloride POC (test code 100 mmol/L 98-107 = 44027556) TCO2 POC (test code = 17 mmol/L 21-32 L Physic aylin Notified 22231638) Urea Nitrogen POC (test 36 mg/dL 7-18 H code = 34010454) Glucose POC (test code = 114 mg/dL 74-106 H 06709272) Hemoglobin POC (test 11.9 g/dL 12-16 L code = 92367482) Hematocrit POC (test 35.0 % 37.0-47.0 L code = 86980940) Lab Interpretation (test Abnormal code = 80249-4) [facility]-CoV-2 ORF1ab Resp Ql OLENA+[id number] 20:25:16 Test Item Value Reference Range Interpretation Comments Hospitalized? (test No code = 70025-0) ICU? (test code = No 40603-0) Symptomatic as No defined by CDC? (test code = 92523-8) Employed in No Healthcare? (test code = 15900-4) Resident in a No congregate care setting (including nursing homes, residential care for people with intellectual and developmental disabilities, psychiatric treatment facilities, group homes, board and care homes, homeless senior care, foster care or other): (test code = 01495-0) SARS-CoV-2 ORF1ab NOT DETECTED Not Detected INTERPRETA TION: No Resp Ql OLENA+probe detectable levels of (test code = SARS-CoV-2 92098-2) Coronavirus (COVID-19) were present in this patient's [...] SARS-CoV-2 mole cular diagnostic assa y utilizes [employer] Mediated Amplification ( TMA) technology to r apidly detect the SARS -CoV-2 (COVID-19) viru s from respiratory adriana ples. In accordance with\\XC2A0\\the FDA's guidance docume nt "Policy for Diagnostic Test s for Coronavirus Disease-2019 du ring the Public Heal Emergency", ginger s test was developed, and its performance characteristics were verified by the [facility] molecular diagn ostics laboratory and is authorized for clinical diagno stic use. \\XC2A0\\Thi s laboratory is certified under the Clinical Labora tory Improvement Amendments (CLI A) as qualified to pe rform high complexity clinical labora tory testing. [facility] [id number] 11:16:15 Test Item Value Reference Range Interpretation Comments pH, Pankaj POC (test code 7.32 7.33-7.43 L = 90510634) pCO2,Pankaj POC (test code 31.0 See_Comment L [Au tomated = 36077586) message] The sy stem which generated this result transmitted reference range : 38 - 50 mmHg. The reference range was not used to interpret this result as normal/abnormal . PO2, Venous POC (BKR) 44 See_Comment L [Auto mated (test code = 34931512) [employer]] The system which generated this result transmitted reference range : 50 - 75 mm Hg. The reference range was not used to interpret this result as normal/abnormal . Ionized Calcium POC 1.24 mmol/L 1.15-1.29 (test code = 43684635) HCO3, Pankaj POC (test 16 mmol/L 22-26 L code = 27260633) TCO2 POC (test code = 17 mmol/L 21-32 L 82252639) Base Deficit, Pankaj POC -9 (test code = 03742594) Sample Type (test code IVEN Physi erik Notified = 16277837) % Sat, Pankaj POC (test 77 % code = 58002911) Lab Interpretation Abnormal (test code = 89830-8) [facility] POC docked [id number] 11:16:15 Test Item Value Reference Range Interpretation Comments pH, Pankaj POC (test code 7.32 7.33-7.43 L = 45876733) pCO2,Pankaj POC (test code 31.0 See_Comment L [Au tomated = 24206818) message] The sy stem which generated this result transmitted reference range : 38 - 50 mmHg. The reference range was not used to interpret this result as normal/abnormal . PO2, Venous POC (BKR) 44 See_Comment L [Auto mated (test code = 97225151) [employer]] The system which generated this result transmitted reference range : 50 - 75 mm Hg. The reference range was not used to interpret this result as normal/abnormal . Ionized Calcium POC 1.24 mmol/L 1.15-1.29 (test code = 11242955) HCO3, Pankaj POC (test 16 mmol/L 22-26 L code = 63509422) TCO2 POC (test code = 17 mmol/L 21-32 L 84153528) Base Deficit, Pankaj POC -9 (test code = 25300981) Sample Type (test code IVEN Physi erik Notified = 64931580) % Sat, Pankaj POC (test 77 % code = 63038499) Lab Interpretation Abnormal (test code = 20960-6) [facility] POC docked [id number] 11:16:15 Test Item Value Reference Range Interpretation Comments pH, Pankaj POC (test code 7.32 7.33-7.43 L = 14591993) pCO2,Pankaj POC (test code 31.0 See_Comment L [Au tomated = 97931699) message] The sy stem which generated this result transmitted reference range : 38 - 50 mmHg. The reference range was not used to interpret this result as normal/abnormal . PO2, Venous POC (BKR) 44 See_Comment L [Auto mated (test code = 20304437) [employer]] The system which generated this result transmitted reference range : 50 - 75 mm Hg. The reference range was not used to interpret this result as normal/abnormal . Ionized Calcium POC 1.24 mmol/L 1.15-1.29 (test code = 66181967) HCO3, Pankaj POC (test 16 mmol/L 22-26 L code = 58399901) TCO2 POC (test code = 17 mmol/L 21-32 L 10084667) Base Deficit, Pankaj POC -9 (test code = 33479979) Sample Type (test code STEPAN Physi erik Notified = 41240455) % Sat, Pankaj POC (test 77 % code = 11978017) Lab Interpretation Abnormal (test code = 13594-2) [facility] POC docked [id number] 11:16:15 Test Item Value Reference Range Interpretation Comments pH, Pankaj POC (test code 7.32 7.33-7.43 L = 97634020) pCO2,Pankaj POC (test code 31.0 See_Comment L [Au tomated = 35763508) message] The sy stem which generated this result transmitted reference range : 38 - 50 mmHg. The reference range was not used to interpret this result as normal/abnormal . PO2, Venous POC (BKR) 44 See_Comment L [Auto mated (test code = 88761031) messa ge] The system which generated this result transmitted reference range : 50 - 75 mm Hg. The reference range was not used to interpret this result as normal/abnormal . Ionized Calcium POC 1.24 mmol/L 1.15-1.29 (test code = 27049127) HCO3, Pankaj POC (test 16 mmol/L 22-26 L code = 74558110) TCO2 POC (test code = 17 mmol/L 21-32 L 70734705) Base Deficit, Pankaj POC -9 (test code = 56901944) Sample Type (test code STEPAN Physi erik Notified = 56665410) % Sat, Pankaj POC (test 77 % code = 64081586) Lab Interpretation Abnormal (test code = 35226-5) [facility] POC docked [id number] 11:16:15 Test Item Value Reference Range Interpretation Comments pH, Pankaj POC (test code 7.32 7.33-7.43 L = 01659749) pCO2,Pankaj POC (test code 31.0 See_Comment L [Au tomated = 34317100) message] The sy stem which generated this result transmitted reference range : 38 - 50 mmHg. The reference range was not used to interpret this result as normal/abnormal . PO2, Venous POC (BKR) 44 See_Comment L [Auto mated (test code = 17285632) messa ge] The system which generated this result transmitted reference range : 50 - 75 mm Hg. The reference range was not used to interpret this result as normal/abnormal . Ionized Calcium POC 1.24 mmol/L 1.15-1.29 (test code = 85161892) HCO3, Pankaj POC (test 16 mmol/L 22-26 L code = 44332580) TCO2 POC (test code = 17 mmol/L 21-32 L 28821602) Base Deficit, Pankaj POC -9 (test code = 87563126) Sample Type (test code STEPAN valencia Notified = 90235547) % Sat, Pankaj POC (test 77 % code = 63418371) Lab Interpretation Abnormal (test code = 46703-2) [facility] POC docked [id number] 11:16:15 Test Item Value Reference Range Interpretation Comments pH, Pankaj POC (test code 7.32 7.33-7.43 L = 10205244) pCO2,Pankaj POC (test code 31.0 See_Comment L [Au tomated = 47158704) message] The sy stem which generated this result transmitted reference range : 38 - 50 mmHg. The reference range was not used to interpret this result as normal/abnormal . PO2, Venous POC (BKR) 44 See_Comment L [Auto mated (test code = 28987288) messa ge] The system which generated this result transmitted reference range : 50 - 75 mm Hg. The reference range was not used to interpret this result as normal/abnormal . Ionized Calcium POC 1.24 mmol/L 1.15-1.29 (test code = 99333264) HCO3, Pankaj POC (test 16 mmol/L 22-26 L code = 82618711) TCO2 POC (test code = 17 mmol/L 21-32 L 70563367) Base Deficit, Pankaj POC -9 (test code = 30109570) Sample Type (test code IVFLORENCE Physi erik Notified = 26259176) % Sat, Pankaj POC (test 77 % code = 63476146) Lab Interpretation Abnormal (test code = 80339-7) [facility] POC docked [id number] 11:16:15 Test Item Value Reference Range Interpretation Comments pH, Pankaj POC (test code 7.32 7.33-7.43 L = 51736642) pCO2,Pankaj POC (test code 31.0 See_Comment L [Au tomated = 10834732) message] The sy stem which generated this result transmitted reference range : 38 - 50 mmHg. The reference range was not used to interpret this result as normal/abnormal . PO2, Venous POC (BKR) 44 See_Comment L [Auto mated (test code = 94031923) [employer]] The system which generated this result transmitted reference range : 50 - 75 mm Hg. The reference range was not used to interpret this result as normal/abnormal . Ionized Calcium POC 1.24 mmol/L 1.15-1.29 (test code = 15490184) HCO3, Pankaj POC (test 16 mmol/L 22-26 L code = 52224385) TCO2 POC (test code = 17 mmol/L 21-32 L 85649508) Base Deficit, Pankaj POC -9 (test code = 70928588) Sample Type (test code IVEN Physi erik Notified = 41406653) % Sat, Pankaj POC (test 77 % code = 99704221) Lab Interpretation Abnormal (test code = 91416-9) [facility] POC docked [id number] 11:16:15 Test Item Value Reference Range Interpretation Comments pH, Pankaj POC (test code 7.32 7.33-7.43 L = 11464663) pCO2,Pankaj POC (test code 31.0 See_Comment L [Au tomated = 46769704) message] The sy stem which generated this result transmitted reference range : 38 - 50 mmHg. The reference range was not used to interpret this result as normal/abnormal . PO2, Venous POC (BKR) 44 See_Comment L [Auto mated (test code = 82491072) [employer]] The system which generated this result transmitted reference range : 50 - 75 mm Hg. The reference range was not used to interpret this result as normal/abnormal . Ionized Calcium POC 1.24 mmol/L 1.15-1.29 (test code = 41723225) HCO3, Pankaj POC (test 16 mmol/L 22-26 L code = 41908252) TCO2 POC (test code = 17 mmol/L 21-32 L 24937929) Base Deficit, Pankaj POC -9 (test code = 29110548) Sample Type (test code IVEN Physi erik Notified = 85938583) % Sat, Pankaj POC (test 77 % code = 97853807) Lab Interpretation Abnormal (test code = 82221-6) [facility] POC docked [id number] 11:16:15 Test Item Value Reference Range Interpretation Comments pH, Pankaj POC (test code 7.32 7.33-7.43 L = 51296283) pCO2,Pankaj POC (test code 31.0 See_Comment L [Au tomated = 61002561) message] The sy stem which generated this result transmitted reference range : 38 - 50 mmHg. The reference range was not used to interpret this result as normal/abnormal . PO2, Venous POC (BKR) 44 See_Comment L [Auto mated (test code = 55162821) [employer]] The system which generated this result transmitted reference range : 50 - 75 mm Hg. The reference range was not used to interpret this result as normal/abnormal . Ionized Calcium POC 1.24 mmol/L 1.15-1.29 (test code = 17534927) HCO3, Pankaj POC (test 16 mmol/L 22-26 L code = 33347916) TCO2 POC (test code = 17 mmol/L 21-32 L 16121393) Base Deficit, Pankaj POC -9 (test code = 50240018) Sample Type (test code IVEN Physi erik Notified = 84995833) % Sat, Pankaj POC (test 77 % code = 25062324) Lab Interpretation Abnormal (test code = 21327-6) [facility] POC docked [id number] 11:16:15 Test Item Value Reference Range Interpretation Comments pH, Pankaj POC (test code 7.32 7.33-7.43 L = 30734865) pCO2,Pankaj POC (test code 31.0 See_Comment L [Au tomated = 04627333) message] The sy stem which generated this result transmitted reference range : 38 - 50 mmHg. The reference range was not used to interpret this result as normal/abnormal . PO2, Venous POC (BKR) 44 See_Comment L [Auto mated (test code = 41816637) messa ge] The system which generated this result transmitted reference range : 50 - 75 mm Hg. The reference range was not used to interpret this result as normal/abnormal . Ionized Calcium POC 1.24 mmol/L 1.15-1.29 (test code = 67880564) HCO3, Pankaj POC (test 16 mmol/L 22-26 L code = 15559258) TCO2 POC (test code = 17 mmol/L 21-32 L 25266917) Base Deficit, Pankaj POC -9 (test code = 58150558) Sample Type (test code STEPAN Moeller erik Notified = 24775200) % Sat, Pankaj POC (test 77 % code = 87979914) Lab Interpretation Abnormal (test code = 82920-9) [facility] POC docked [id number] 11:16:15 Test Item Value Reference Range Interpretation Comments pH, Pankaj POC (test code 7.32 7.33-7.43 L = 20589911) pCO2,Pankaj POC (test code 31.0 See_Comment L [Au tomated = 60196889) message] The sy stem which generated this result transmitted reference range : 38 - 50 mmHg. The reference range was not used to interpret this result as normal/abnormal . PO2, Venous POC (BKR) 44 See_Comment L [Auto mated (test code = 17980546) messa ge] The system which generated this result transmitted reference range : 50 - 75 mm Hg. The reference range was not used to interpret this result as normal/abnormal . Ionized Calcium POC 1.24 mmol/L 1.15-1.29 (test code = 29529494) HCO3, Pankaj POC (test 16 mmol/L 22-26 L code = 82913151) TCO2 POC (test code = 17 mmol/L 21-32 L 70949442) Base Deficit, Pankaj POC -9 (test code = 77918447) Sample Type (test code STEPAN Physi erik Notified = 77932679) % Sat, Pankaj POC (test 77 % code = 85368918) Lab Interpretation Abnormal (test code = 92177-6) [facility] POC docked [id number] 11:16:15 Test Item Value Reference Range Interpretation Comments pH, Pankaj POC (test code 7.32 7.33-7.43 L = 57712092) pCO2,Pankaj POC (test code 31.0 See_Comment L [Au tomated = 99000283) message] The sy stem which generated this result transmitted reference range : 38 - 50 mmHg. The reference range was not used to interpret this result as normal/abnormal . PO2, Venous POC (BKR) 44 See_Comment L [Auto mated (test code = 99131801) [employer] ge] The system which generated this result transmitted reference range : 50 - 75 mm Hg. The reference range was not used to interpret this result as normal/abnormal . Ionized Calcium POC 1.24 mmol/L 1.15-1.29 (test code = 61317253) HCO3, Pankaj POC (test 16 mmol/L 22-26 L code = 84015032) TCO2 POC (test code = 17 mmol/L 21-32 L 54611580) Base Deficit, Pankaj POC -9 (test code = 88086474) Sample Type (test code STEPAN Physi erik Notified = 78621646) % Sat, Pankaj POC (test 77 % code = 03075022) Lab Interpretation Abnormal (test code = 64099-8) [facility] POC docked [id number] 11:16:15 Test Item Value Reference Range Interpretation Comments pH, Pankaj POC (test code 7.32 7.33-7.43 L = 33602446) pCO2,Pankaj POC (test code 31.0 See_Comment L [Au tomated = 88727149) message] The sy stem which generated this result transmitted reference range : 38 - 50 mmHg. The reference range was not used to interpret this result as normal/abnormal . PO2, Venous POC (BKR) 44 See_Comment L [Auto mated (test code = 27805211) [employer]] The system which generated this result transmitted reference range : 50 - 75 mm Hg. The reference range was not used to interpret this result as normal/abnormal . Ionized Calcium POC 1.24 mmol/L 1.15-1.29 (test code = 54367981) HCO3, Pankaj POC (test 16 mmol/L 22-26 L code = 19414672) TCO2 POC (test code = 17 mmol/L 21-32 L 32771659) Base Deficit, Pankaj POC -9 (test code = 31697240) Sample Type (test code IVEN Physi erik Notified = 50249200) % Sat, Pankaj POC (test 77 % code = 47381655) Lab Interpretation Abnormal (test code = 08547-4) [facility] POC docked [id number] 11:16:15 Test Item Value Reference Range Interpretation Comments pH, Pankaj POC (test code 7.32 7.33-7.43 L = 11078120) pCO2,Pankaj POC (test code 31.0 See_Comment L [Au tomated = 68731066) message] The sy stem which generated this result transmitted reference range : 38 - 50 mmHg. The reference range was not used to interpret this result as normal/abnormal . PO2, Venous POC (BKR) 44 See_Comment L [Auto mated (test code = 52758189) [employer]] The system which generated this result transmitted reference range : 50 - 75 mm Hg. The reference range was not used to interpret this result as normal/abnormal . Ionized Calcium POC 1.24 mmol/L 1.15-1.29 (test code = 64480529) HCO3, Pankaj POC (test 16 mmol/L 22-26 L code = 13897415) TCO2 POC (test code = 17 mmol/L 21-32 L 67293740) Base Deficit, Pankaj POC -9 (test code = 60109587) Sample Type (test code IVEN Physi erik Notified = 15383790) % Sat, Pankaj POC (test 77 % code = 46783454) Lab Interpretation Abnormal (test code = 01088-7) [facility] POC docked [id number] 11:16:15 Test Item Value Reference Range Interpretation Comments pH, Pankaj POC (test code 7.32 7.33-7.43 L = 23812084) pCO2,Pankaj POC (test code 31.0 See_Comment L [Au tomated = 72143298) message] The sy stem which generated this result transmitted reference range : 38 - 50 mmHg. The reference range was not used to interpret this result as normal/abnormal . PO2, Venous POC (BKR) 44 See_Comment L [Auto mated (test code = 64139593) messa ge] The system which generated this result transmitted reference range : 50 - 75 mm Hg. The reference range was not used to interpret this result as normal/abnormal . Ionized Calcium POC 1.24 mmol/L 1.15-1.29 (test code = 54036344) HCO3, Pankaj POC (test 16 mmol/L 22-26 L code = 45837965) TCO2 POC (test code = 17 mmol/L 21-32 L 42297787) Base Deficit, Pankaj POC -9 (test code = 42186619) Sample Type (test code IVEN Physi erik Notified = 38465120) % Sat, Pankaj POC (test 77 % code = 85867669) Lab Interpretation Abnormal (test code = 80281-2) [facility] POC docked [id number] 11:16:15 Test Item Value Reference Range Interpretation Comments pH, Pankaj POC (test code 7.32 7.33-7.43 L = 86522009) pCO2,Pankaj POC (test code 31.0 See_Comment L [Au tomated = 13565425) message] The sy stem which generated this result transmitted reference range : 38 - 50 mmHg. The reference range was not used to interpret this result as normal/abnormal . PO2, Venous POC (BKR) 44 See_Comment L [Auto mated (test code = 47643941) messa ge] The system which generated this result transmitted reference range : 50 - 75 mm Hg. The reference range was not used to interpret this result as normal/abnormal . Ionized Calcium POC 1.24 mmol/L 1.15-1.29 (test code = 17380093) HCO3, Pankaj POC (test 16 mmol/L 22-26 L code = 51092357) TCO2 POC (test code = 17 mmol/L 21-32 L 60602383) Base Deficit, Pankaj POC -9 (test code = 17992159) Sample Type (test code STEPAN valencia Notified = 31825541) % Sat, Pankaj POC (test 77 % code = 21058684) Lab Interpretation Abnormal (test code = 10854-6) [facility] POC docked [id number] 11:16:15 Test Item Value Reference Range Interpretation Comments pH, Pankaj POC (test code 7.32 7.33-7.43 L = 57575044) pCO2,Pankaj POC (test code 31.0 See_Comment L [Au tomated = 43719841) message] The sy stem which generated this result transmitted reference range : 38 - 50 mmHg. The reference range was not used to interpret this result as normal/abnormal . PO2, Venous POC (BKR) 44 See_Comment L [Auto mated (test code = 92207313) messa ge] The system which generated this result transmitted reference range : 50 - 75 mm Hg. The reference range was not used to interpret this result as normal/abnormal . Ionized Calcium POC 1.24 mmol/L 1.15-1.29 (test code = 67451075) HCO3, Pankaj POC (test 16 mmol/L 22-26 L code = 04750601) TCO2 POC (test code = 17 mmol/L 21-32 L 51726613) Base Deficit, Pankaj POC -9 (test code = 90484014) Sample Type (test code STEPAN valencia Notified = 29498660) % Sat, Pankaj POC (test 77 % code = 27092978) Lab Interpretation Abnormal (test code = 17250-1) [facility] POC docked [id number] 11:16:15 Test Item Value Reference Range Interpretation Comments pH, Pankaj POC (test code 7.32 7.33-7.43 L = 23997761) pCO2,Pankaj POC (test code 31.0 See_Comment L [Au tomated = 89901974) message] The sy stem which generated this result transmitted reference range : 38 - 50 mmHg. The reference range was not used to interpret this result as normal/abnormal . PO2, Venous POC (BKR) 44 See_Comment L [Auto mated (test code = 53417690) messa ge] The system which generated this result transmitted reference range : 50 - 75 mm Hg. The reference range was not used to interpret this result as normal/abnormal . Ionized Calcium POC 1.24 mmol/L 1.15-1.29 (test code = 13284927) HCO3, Pankaj POC (test 16 mmol/L 22-26 L code = 11432751) TCO2 POC (test code = 17 mmol/L 21-32 L 46350284) Base Deficit, Pankaj POC -9 (test code = 78296890) Sample Type (test code IVEN Physi erik Notified = 00254606) % Sat, Pankaj POC (test 77 % code = 35343014) Lab Interpretation Abnormal (test code = 49843-7) [place] [address] LEAD [id number] 20:59:5612 LEAD EKG FOR [facility] Test Date: 5874-42-15Rnm Name: DORA JOSEPH Department: 5520Patient ID: [id number] Room: Gender: 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: [id number]: 1970 Requested By: TANJA Garza Number: [id number] Reading MD: Chiara Calles MeasurementsIntervals [place] Rate: 75 P: 84PR: 153 QRS: 67QRSD: 104 T: 77QT: 344 QTc: 373 Interpretive StatementsSINUS RHYTHMPOSSIBLE RIGHT VENTRICULAR CONDUCTION DELAY [RSR (QR) IN V1/V2]Electronically Signed On 01-09-2022 8:27:19 CDT by [place]ara [place] [address] LEAD [id number] 20:59:5612 LEAD EKG FOR [facility] Test Date: 0821-13-48Hfs Name: DORA JOSEPH Department: 5520Patient ID: [id number] Room: Gender: 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: [id number]: 1970 Requested By: TANJA Garza Number: [id number] Reading MD: Chiara Calles MeasurementsIntervals [place] Rate: 75 P: 84PR: 153 QRS: 67QRSD: 104 T: 77QT: 344 QTc: 373 Interpretive StatementsSINUS RHYTHMPOSSIBLE RIGHT VENT RICULAR CONDUCTION DELAY [RSR (QR) IN V1/V2]Electronically Signed On 01-09-2022 8:27:19 CDT [place] [address] LEAD [id number] 20:59:5612 LEAD EKG FOR [facility] Test Date: 4666-39-02Gwi Name: DORA JOSEPH Department: 5520Patient ID: [id number] Room: Gender: 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: [id number]: 1970 Requested By: TANJA Garza Number: [id number] Reading MD: Chiara Calles MeasurementsIntervals [place] Rate: 75 P: 84PR: 153 QRS: 67QRSD: 104 T: 77QT: 344 QTc: 373 Interpretive StatementsSINUS RHYTHMPOSSIBLE RIGHT VENTRICULAR CONDUCTION DELAY [RSR (QR) IN V1/V2]Electronically Signed On 01-09-2022 8:27:19 CDT by Hotalot12 LEAD [id number] 20:59:5612 LEAD EKG FOR [facility] Test Date: 1458-94-74Stf Name: DORA PAEZRY Department: 5520Patient ID: [id number] Room: Gender: 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: [id number]: 1970 Requested By: TANJA Garza Number: [id number] Reading MD: Chiara Calles MeasurementsIntervals [place] Rate: 75 P: 84P R: 153 QRS: 67QRSD: 104 T: 77QT: 344 QTc: 373 Interpretive StatementsSINUS RHYTHMPOSSIBLE RIGHT VENTRICULAR CONDUCTION DELAY [RSR (QR) IN V1/V2]Electronically Signed On 01-09-2022 8:27:19 CDT by Hotalot12 LEAD [id number] 20:59:5612 LEAD EKG FOR [facility] Test Date: 7631-42-97Gbf Name: DORA CHIGNIK Department: 5520Patient ID: [id number] Room: Gender: 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: [id number]: 1970 Requested By: TANJA Garza Number: [id number] Reading MD: Chiara Calles MeasurementsIntervals [place] Rate: 75 P: 84PR: 153 QRS: 67QRSD: 104 T: 77QT: 344 QTc: 373 Interpretive StatementsSINUS RHYTHMPOSSIBLE RIGHT VENTRICULAR CONDUCTION DELAY [RSR (QR) IN V1/V2]Electronically Signed On 01-09-2022 8:27:19 CDT by Waleed [facility] CenterBacula Systems12 LEAD [id number] 20:59:5612 LEAD EKG FOR [facility] Test Date: [id number] Name: DORA JOSEPH Department: 5520Patient ID: [id number] Room: Gender: 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: [id number]: 1970 Requested By: TANJA Garza Number: [id number] Reading MD: Chiara Calles MeasurementsIntervals [place] Rate: 75 P: 84PR: 153 QRS: 67QRSD: 104 T: 77QT: 344 QTc: 373 Interpretive StatementsSINUS RHYTHMPOSSIBLE RIGHT VENT RICULAR CONDUCTION DELAY [RSR (QR) IN V1/V2]Electronically Signed On 01-09-2022 8:27:19 CDT by [facility] CenterBac[facility] Systems12 LEAD [id number] 20:59:5612 LEAD EKG FOR [facility] Test Date: 2326-31-74Bdt Name: DORA PAEZRY Department: 5520Patient ID: [id number] Room: Gender: 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: [id number]: 1970 Requested By: TANJA Garza Number: [id number] Reading MD: Chiara Calles MeasurementsIntervals [place] Rate: 75 P: 84PR: 153 QRS: 67QRSD: 104 T: 77QT: 344 QTc: 373 Interpretive StatementsSINUS RHYTHMPOSSIBLE RIGHT VENTRICULAR CONDUCTION DELAY [RSR (QR) IN V1/V2]Electronically Signed On 01-09-2022 8:27:19 CDT by [facility] HospitalSyrenaicaO[facility] CenterPar8o [id number] 20:59:5612 LEAD EKG FOR [facility] Test Date: 7439-11-15Uhx Name: DORA PAEZRY Department: 5520Patient ID: [id number] Room: Gender: 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: [id number]: 1970 Requested By: TANJA Garza Number: [id number] Reading MD: Chiara Calles MeasurementsIntervals [place] Rate: 75 P: 84PR: 153 QRS: 67QRSD: 104 T: 77QT: 344 QTc: 373 Interpretive StatementsSINUS RHYTHMPOSSIBLE RIGHT VENTRICULAR CONDUCTION DELAY [RSR (QR) IN V1/V2]Electronically Signed On 01-09-2022 8:27:19 CDT by Hotalot12 LEAD [id number] 20:59:5612 LEAD EKG FOR [facility] Test Date: 3180-76-76Fwp Name: DORA JOSEPH Department: 5520Patient ID: [id number] Room: Gender: 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: [id number]: 1970 Requested By: TANJA Garza Number: [id number] Reading MD: Chiara Calles MeasurementsIntervals [place] Rate: 75 P: 84PR: 153 QRS: 67QRSD: 104 T: 77QT: 344 QTc: 373 Interpretive StatementsSINUS RHYTHMPOSSIBLE RIGHT VENTRICULAR CONDUCTION DELAY [RSR (QR) IN V1/V2]Electronically Signed On 01-09-2022 8:27:19 CDT by Hotalot12 LEAD [id number] 20:59:5612 LEAD EKG FOR [facility] Test Date: [id number] Name: DORA JOSEPH Department: 5520Patient ID: [id number] Room: Gender: 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: [id number]: 1970 Requested By: TANJA Garza Number: [id number] Reading MD: Chiara Calles MeasurementsIntervals [place] Rate: 75 P: 84PR: 153 QRS: 67QRSD: 104 T: 77QT: 344 QTc: 373 Interpretive StatementsSINUS RHYTHMPOSSIBLE RIGHT VENT RICULAR CONDUCTION DELAY [RSR (QR) IN V1/V2]Electronically Signed On 01-09-2022 8:27:19 CDT by Hotalot12 LEAD [id number] 20:59:5612 LEAD EKG FOR [facility] Test Date: 9062-00-20Qpx Name: DORA PAEZRY Department: 5520Patient ID: [id number] Room: Gender: 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: [id number]: 1970 Requested By: TANJA Garza Number: [id number] Reading MD: Chiara Calles MeasurementsIntervals [place] Rate: 75 P: 84PR: 153 QRS: 67QRSD: 104 T: 77QT: 344 QTc: 373 Interpretive StatementsSINUS RHYTHMPOSSIBLE RIGHT VENTRICULAR CONDUCTION DELAY [RSR (QR) IN V1/V2]Electronically Signed On 01-09-2022 8:27:19 CDT by DellaFABPulous12 LEAD [id number] 20:59:5612 LEAD EKG FOR [facility] Test Date: 4319-94-80Sex Name: DORA PAEZRY Department: 5520Patient ID: [id number] Room: Gender: 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: [id number]: 1970 Requested By: TANJA Garza Number: [id number] Reading MD: Chiara Calles MeasurementsIntervals [place] Rate: 75 P: 84PR : 153 QRS: 67QRSD: 104 T: 77QT: 344 QTc: 373 Interpretive StatementsSINUS RHYTHMPOSSIBLE RIGHT VENTRICULAR CONDUCTION DELAY [RSR (QR) IN V1/V2]Electronically Signed On 01-09-2022 8:27:19 CDT by Chiara [employer] Water SystemsbakariPoliglotaOuachita County Medical CenterBacula Systems12 LEAD [id number] 20:59:5612 LEAD EKG FOR [facility] Test Date: 1485-03-44Aup Name: DORA CHIGNIK Department: 5520Patient ID: [id number] Room: Gender: 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: [id number]: 1970 Requested By: TANJA Garza Number: [id number] Reading MD: Chiara Calles MeasurementsIntervals [place] Rate: 75 P: 84PR: 153 QRS: 67QRSD: 104 T: 77QT: 344 QTc: 373 Interpretive StatementsSINUS RHYTHMPOSSIBLE RIGHT VENTRICULAR CONDUCTION DELAY [RSR (QR) IN V1/V2]Electronically Signed On 01-09-2022 8:27:19 CDT by Achievo(R[employer] Corporationrobert [employer] SystemsbakariLicense [employer]quisitions12 LEAD [id number] 20:59:5612 LEAD EKG FOR [facility] Test Date: 7728-27-09Apu Name: DORA CHIGNIK Department: 5520Patient ID: [id number] Room: Gender: 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: [id number]: 1970 Requested By: TANJA Garza Number: [id number] Reading MD: Chiara Calles MeasurementsIntervals [place] Rate: 75 P: 84PR: 153 QRS: 67QRSD: 104 T: 77QT: 344 QTc: 373 Interpretive StatementsSINUS RHYTHMPOSSIBLE RIGHT VENT RICULAR CONDUCTION DELAY [RSR (QR) IN V1/V2]Electronically Signed On 01-09-2022 8:27:19 CDT by SeePoliglotaCompaPar8o [place] [address] LEAD [id number] 20:59:5612 LEAD EKG FOR [facility] Test Date: 1650-52-77Bpr Name: DORA CHIGNIK Department: 5520Patient ID: [id number] Room: Gender: 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: [id number]: 1970 Requested By: TANJA Garza Number: [id number] Reading MD: Chiara Calles MeasurementsIntervals [place] Rate: 75 P: 84PR: 153 QRS: 67QRSD: 104 T: 77QT: 344 QTc: 373 Interpretive StatementsSINUS RHYTHMPOSSIBLE RIGHT VENTRICULAR CONDUCTION DELAY [RSR (QR) IN V1/V2]Electronically Signed On 01-09-2022 8:27:19 CDT by Chiara [employer] SystemsbakariPoliglotaCompaIsland Hospital12 LEAD [id number] 20:59:5612 LEAD EKG FOR [facility] Test Date: 3144-77-21Htl Name: DORA CHIGNIK Department: 5520Patient ID: [id number] Room: Gender: 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: [id number]: 1970 Requested By: TANJA Garza Number: [id number] Reading MD: Chiara Calles MeasurementsIntervals [place] Rate: 75 P: 84P R: 153 QRS: 67QRSD: 104 T: 77QT: 344 QTc: 373 Interpretive StatementsSINUS RHYTHMPOSSIBLE RIGHT VENTRICULAR CONDUCTION DELAY [RSR (QR) IN V1/V2]Electronically Signed On 01-09-2022 8:27:19 CDT by [facility] [employer] SystemsbakariPoliglotaWest [facility]12 LEAD [id number] 20:59:5612 LEAD EKG FOR [facility] Test Date: 6580-20-25Omw Name: DORA JOSEPH Department: 5520Patient ID: [id number] Room: Gender: Pipe Fitter Helper: [id number]: 1970 Requested By: TANJA Garza Number: [id number] Reading MD: Chiara Calles MeasurementsIntervals [place] Rate: 75 P: 84PR: 153 QRS: 67QRSD: 104 T: 77QT: 344 QTc: 373 Interpretive StatementsSINUS RHYTHMPOSSIBLE RIGHT VENTRICULAR CONDUCTION DELAY [RSR (QR) IN V1/V2]Electronically Signed On 01-09-2022 8:27:19 CDT by [facility] Healthcarerobert [employer] SystemsbakariMichael Ville [address] LEAD [id number] 20:59:5612 LEAD EKG FOR [facility] Test Date: 7758-91-81Xjl Name: DORA JOSEPH Department: 5520Patient ID: [id number] Room: Gender: Pipe Fitter Helper: [id number]: 1970 Requested By: TANJA Garza Number: [id number] Reading MD: Chiara Calles MeasurementsIntervals [place] Rate: 75 P: 84PR: 153 QRS: 67QRSD: 104 T: 77QT: 344 QTc: 373 Interpretive StatementsSINUS RHYTHMPOSSIBLE RIGHT VENT RICULAR CONDUCTION DELAY [RSR (QR) IN V1/V2]Electronically Signed On 01-09-2022 8:27:19 CDT by [facility] W/AUTO [id number] 23:52:00 Test Item Value Reference Range Interpretation [...] = MX#) 0.8 k/mm3 0.1-0.8 N LIVER [id number] 20:04:00 Test Item Value Reference Range Interpretation Comments TOTAL PROTEIN (test code 6.7 GM/DL 5.0-8.0 N Per formed by = PROT) 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 [facility] ALBUMIN (test code = [...] 67 UNITS/L 25-125 N LYNDSEY) BASIC METABOLIC [id number] 19:54:00 Test Item Value Reference Range Interpretation [...] POCGLU) 81 MG/DL - CT ABD PELVIS [id number] 00:00:00 [facility] MARIA ISABEL JOSEPH : 1970 Sex: M Name: MARIA ISABEL JOSEPH FSED : 1970 Age/S: 51 / M [address] [facility] Unit #: [id number] Loc: [place] [address] Phys: Raffaele Levi MD Acct: [id number] Dis Date: Status: PRE ER PHONE #: Exam Date: 09/23/20211999 FAX #: Reason: RUQ PAIN, VOMITING EXAMS: CPT CODE: [id number] CT ABD PELVIS W/CONT 85087 PROCEDURE INFORMATION: Exam: CT Abdomen And Pelvis [...] : 1970 Age/S: 51 / M [address] [facility] Unit #: [id number] Loc: [place] [address] Phys: Raffaele Levi MD Acct: [id number] Dis Date: Status: PRE ER PHONE #: Exam Date: 09/23/20211999 FAX #: Reason: RUQ PAIN, VOMITING EXAMS: CPT CODE:[id number] CT ABD PELVIS W/CONT 19148 <Continued> abdominal small bowel loops may relate [...] (2049) PAGE 2 Signed Report COMPREHENSIVE METABOLIC [id number] 11:51:00 Test Item Value Reference Range Interpretation [...] Units/L 50.0-136.0 N code = ALKP) PROTHROMBIN [id number] 11:41:00 Test Item Value Reference Range Interpretation Comments PROTHROMBIN TIME 10.9 SECONDS 9.9-12.8 N PATIENT (test code = PTP) INTERNATIONAL NORMAL 0.9 0.89-1.14 N THE INR IS TO BE USED RATIO (test code = ONLY FOR MONITORING INR) ORAL ANTICOAGULANTTH ERAPY. 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 [facility] BASIC METABOLIC [id number] 05:21:00 Test Item Value Reference Range Interpretation [...] (test code = POCGLU) 92 MG/DL GLUCOSE [id number] 05:19:00 Test Item Value Reference Range Interpretation Comments GLUCOSE BEDSIDE (test 51 MG/DL 70-110 L [facility] med by certified code = GLUBED) 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 [facility] CBC W/AUTO [id number] 14:00:00 Test Item Value Reference Range Interpretation [...] MX#) 0.2 k/mm3 0.1-0.8 N CBC W/AUTO [id number] 00:07:00 Test Item Value Reference Range Interpretation [...] = LY#) 2.4 K/uL 1.0-3.8 N LIVER [id number] 16:14:00 Test Item Value Reference Range Interpretation Comments TOTAL PROTEIN (test code 7.5 GM/DL 5.0-8.0 N Per formed by = PROT) 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 [facility] ALBUMIN (test code = [...] 65 UNITS/L 25-125 N LYNDSEY) BASIC METABOLIC [id number] 16:07:00 Test Item Value Reference Range Interpretation [...] POCGLU) 96 MG/DL - XR CHEST 1 [id number] 00:00:00 [facility]: DORA JOSEPH : 1970 Sex: MFAX: Steve Urias MD [phone] Withams: [place] St: PRE Name: DORA JOSEPH Castro FSED : 1970 Age/S: 51/M [address] [facility] Unit #: [id number] Loc: [place] [address] Phys: Steve Urias MD Acct: [id number] Dis Date: Status: PRE ER PHONE #: Exam Date: 06/27/2021 1544 FAX #: Reason: Abdominal Pain EXAMS: CPT CODE: [id number] XR CHEST 1 V 02001 PROCEDURE INFORMATION: Exam: XR Chest Exam date [...] MD Technologist: RT Alanna(R)(CT) Trnscrd Date/Time/By: 06/27/2021 (5359) : By: GarettJG42 Orig Print D/T: S: 06/27/2021 (4895) PAGE 1 Signed Report- CT ABD PELVIS [id number] 00:00:00 [facility] [place]: DORA JOSEPH : 1970 Sex: MName: DORA JOSEPH FSED : 1970 Age/S: 51 / M [address] [facility] Unit #: [id number] Loc: [place] [address] Phys: Steve Urias MD Acct: [id number] Dis Date: Status: REG ER PHONE #: Exam Date: 06/27/2021 1620 FAX #: Reason: pain in region of colostomy EXAMS: CPT CODE: [id number] CT ABD PELVIS W/CONT 34753 PROCEDURE INFORMATION: Exam: CT Abdomen And Pelvis [...] no evidence of retroperitoneal mass or adenopathy. PELVI S: The bladder has an unremarkable appearance. No enlarged pelvic lymph nodes are identified. LOWER CHEST: The lung bases appear clear of acute disease. ADDITIONAL FINDINGS: None. IMPRESSION: 1. 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 A peristomal fat containing hernia is present PAGE 1 Signed Report (CONTINUED) Name: DORA JOSEPH FSED : 1970 Age/S: 51 / M [address] [facility] Unit #: [id number] Loc: [place] [address] Phys: Chema Urias MD Acct: [id number] Dis Date: Status: REG ER PHONE #: Exam Date: 06/27/2021 3106 FAX #: Reason:pain in region of colostomy EXAMS: CPT CODE: [id number] CT ABD PELVIS W/CONT 00299 <Continued>with ileostomy prolapse. There is no evidence of associated intestinal obstruction. 2. No additionalacute CT abnormalities of the abdomen or pelvis are identified. SL:131 at 1650 Reported and signed by: Marco Raman M.D. CC: Steve Urias MD Technologist:Yecenia Carbajal, RT(R)(CT) CTDI: DLP: Trnscb Date/Time: 06/27/2021 (1649) [place] Orig Print D/T: S: 06/27/2021 (1649) PAGE 2 Signed ReportCBC W/AUTO [id number] 09:20:00 Test Item Value Reference Range Interpretation [...] (test code NO = MDIFF) CBC W/AUTO [id number] 08:59:00 Test Item Value Reference Range Interpretation [...] REQUIRED (test code = MDIFF) BASIC METABOLIC [id number] 08:21:00 Test Item Value Reference Range Interpretation [...] 8.4 mg/dL 8.0-10.5 N CA) BASIC METABOLIC [id number] 08:34:00 Test Item Value Reference Range Interpretation [...] 8.4 mg/dL 8.0-10.5 N CA) CBC W/AUTO [id number] 07:41:00 Test Item Value Reference Range Interpretation [...] = MDIFF) UA RFLX MICR CULT IF [id number] 10:10:00 Test Item Value Reference Range Interpretation [...] Pain Temperature > 100.4 FSpecimen Description: [facility] [id number] 04:13:00 Test Item Value Reference Range Interpretation [...] mg/dL 8.0-10.5 N CA) Coronavirus 2019 nCoV [id number] 22:03:00 Test Item Value Reference Range Interpretation Comments Coronavirus 2019 Negative Negative Performed b y certified nCoV Bedside (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 Negative result s do not preclude SVRF-NjQ-0xohzv tion and should not be u sed as the sole basis forp atient management deci sions. Negative result s should beconsidered in the context of a patient's recent exposures,histo ry, presence of clinical sig ns and symptoms consis tentwith COVID-19. 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 Bones/joints: Unremarkable. No acute fracture. Soft tissues: Unremarkable. IMPRESSION: 1. 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 2. Mild long segment bowel wall thickening/mucosal prominence compatible with an enteritis. No evidence for obstruction. at 195 Reported and signed by: Hector Nichols M.D. 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 Multiple prior abdominal radiographs. Findings: The lung bases are grossly clear. Redemonstrated are markedly dilated, gas-filled small and large bowel loops, filling and distending the abdomen. There is gas in the rectum. Th teresa appear progressed as prior exam with increased distention of small bowel loops in the left lowerquadrant (not previously seen) The osseous structures appear normal. Impression: Redemonstrated are markedly dilated, gas-filled small and large bowel loops, filling and distending the abdomen. These appear progressed as prior exam with increased distention of small bowel loops in the left lower quadrant (not previously seen) at 1253 Reported and signed by: Sol Paige MD CC: Andre Solano; Mark Perea MDPAGE 1 Signed Report Name: DORA JOSEPH [facility] : 1970 Age/S: 50 / M [address] Unit #: [id number] Loc: [place] [address] 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 Acct: [id number] Dis Date: Status: ADM IN PHONE #: [phone] Exam Date: 02/25/2020 1036 FAX #: Reason: abdominal distention EXAMS: CPT: [id number] XR ABDOMEN 1 V 47976 Fluoro Time: DAP (Gy m2): Air Kerma (mGy): <Continued> Technologist: Nichole Dill RT(R) Trnscb Date/Time: 02/25/2020 (3900) [email or web address] Orig Print D/T: S: 02/25/2020 (2520) PAGE 2 Signed Report COMPREHENSIVE METABOLIC [id number] 08:20:00 Test Item Value Reference Range Interpretation [...] 50-136 L TOTAL (test code = ALKP) [id number] 08:20:00 Test Item Value Reference Range Interpretation Comments MAGNESIUM (test code = MAG) 2.2 MG/DL 1.8-2.4 N THYROID STIMULATING [id number] 08:20:00 Test Item Value Reference Range Interpretation Comments THYROID STIMULATING HORMONE 5.430 mcIU/ML 0.340-4.820 H (test code = TSH) CBC W/AUTO [id number] 07:55:00 Test Item Value Reference Range Interpretation [...] N NRBC#) UA RFLX MICR CULT IF [id number] 12:29:00 Test Item Value Reference Range Interpretation [...] culture: Suprapubic PainUA RFLX MICR CULT IF [id number] 12:29:00 Test Item Value Reference Range Interpretation [...] for culture: Suprapubic PainCOVID 19 Asymptomatic IH [id number] 22:09:00 Test Item Value Reference Range Interpretation [...] tent with COVID-19. - CT ABD PELVIS W/[id number] 21:10:00 Name: DORA JOSEPH [facility] : 1970 Age/S: 50 / M [address] [place] Unit #: [id number] Loc: [place] [address] Phys: Evin Castellanos MD Acct: [id number] Dis Date: Status: REG ER PHONE #: [phone] Exam Date: 02/23/20202047 FAX #: Reason: diffuse abdomen pain and distention EXAMS: CPT: [id number] CT ABD PELVIS W/CONT 60792 EXAM: - CT ABD PELVIS W/CONT LOCATION: [...] 1 Signed Report (CONTINUED) Name: DORA JOSEPH [place] : 1970 Age/S: 50 / M [address] [address] [place] Unit #: [id number] Loc: [place] [address] Phys: Evin Castellanos MD Acct: [id number] Dis Date: Status: REG ER PHONE #: [phone] Exam Date: 02/23/20202047 FAX #: Reason: diffuse abdomen pain and distention EXAMS: CPT: [id number] CT ABD PELVIS W/CONT 58396 <Continued> CT. No bowel wall thickening or [...] by: Marybel José M.D. CC: Susana Meza NYLON WINDER; Carl Luevano MD Technologist:Rudy Zuniga, RT(R)(CT)(MRI) CTDI: DLP: Trnscb Date/Time: 02/23/2020 (2109) t.SDR.AY01Ycyt Print D/T: S: 02/23/2020 (2112) PAGE 2 Signed Report- XR CHEST 1 [id number] 21:03:00 Name: DORA JOSEPH [place] : 1970 Age/S: 50 / M [address] [place] Unit #: [id number] Loc: [place] [address] Phys: Evin Castellanos MD Acct: [id number] Dis Date: Status: REG ER PHONE #: [phone] Exam Date: 02/23/20202055 FAX #: Reason: Code Sepsis EXAMS: CPT: [id number] XR CHEST 1 V 12590 Fluoro Time: DAP (Gy m2): Air Kerma [...] disease. 2. Chronic colonic air distention unchanged. [id number] Reported and signed by: Monica Quijano MD CC: Susana Meza NYLON WINDER; Carl Luevano MD PAGE 1 Signed Report Name: DORA JOSEPH [facility] : 1970 Age/S: 50 / M [address] Unit #: [id number] Loc: [place] [address] Phys: Evin Castellanos MD Acct: [id number] Dis Date: Status: REG ER PHONE #: [phone] Exam Date: 02/23/20202055 FAX #: Reason: Code Sepsis EXAMS: CPT: [id number] XR CHEST 1 V 56727 Fluoro Time: DAP (Gy m2): Air Kerma (mGy): <Continued> Techno logist: Rudy Zuniga RT(R)(CT)(MRI) Trnscb Date/Time: 02/23/2020 (2102) tCARLAW Orig Print D/T: S: 02/23/2020 (2106) PAGE 2 Signed ReportBASIC METABOLIC [id number] 20:02:00 Test Item Value Reference Range Interpretation [...] 8.5-10.1 N Completed by Nursing: NOHEPATIC FUNCTION [id number] 20:02:00 Test Item Value Reference Range Interpretation [...] N code = ALKP) Completed by Nursing: [id number] 20:02:00 Test Item Value Reference Range Interpretation Comments LIPASE (test code = LIP) 97 Unit/L 114-286 L Completed by Nursing: [id number] 20:02:00 Test Item Value Reference Range Interpretation [...] brittani yby method. Completed by Nursing: NOLACTIC [id number] 19:59:00 Test Item Value Reference Range Interpretation Comments LACTIC ACID (test code = LACT) 1.2 mmol/L 0.4-2.0 N CBC W/AUTO [id number] 19:46:00 Test Item Value Reference Range Interpretation [...] CRITERIA = MDIFF) - XR ABDOMEN 2 [id number] 06:22:00 Name: DORA JOSEPH [facility] : 1970 Age/S: 50 / M [address] [place] Unit #: [id number] Loc: [place] [address] Phys: León Robertson MD Acct: [id number] Dis Date: Status: ADM IN PHONE #: [phone] Exam Date: 02/19/2020 0440 FAX #: Reason: megacolon EXAMS: CPT: [id number] XR ABDOMEN 2 V 07182 Fluoro Time: DAP (Gy m2): Air Kerma (mGy): EXAM: Abdomen 2 views Location: H24 HISTORY: Megacolon. COMPARISON: 01/10/2020 FINDINGS: AP upright and supine views of the abdomen were obtained. There is marked gaseous distention of the colon followed to level the rectum. Multiple gas dilatedloops of small bowel loops are seen centrally. [...] 1 Signed Report Name: DORA JOSEPH [facility] : 1970 Age/S: 50 / M [address] [address] [place] Unit #: [id number] Loc: [place] [address] Phys: León Robertson MD Acct: [id number] Dis Date: Status: ADM IN PHONE #: [phone] Exam Date: 02/19/2020 0440 FAX #: Reason: megacolon EXAMS: CPT: [id number] XR ABDOMEN 2 V 19796 Fluoro Time: DAP (Gy m2): Air Kerma (mGy): <Continued> Technologist: Carrie Barnett, RT(R)(CT) Trnscb Date/Time: 02/19/2020 (621) [id number] Orig Print D/T: S: (0659) PAGE 2 Signed ReportBASIC METABOLIC [id number] 05:52:00 Test Item Value Reference Range Interpretation [...] CA) 8.5 MG/DL 8.5-10.1 N CBC W/AUTO [id number] 05:40:00 Test Item Value Reference Range Interpretation [...] NO DIFF/SCN CRITERIA = MDIFF) BASIC METABOLIC [id number] 06:52:00 Test Item Value Reference Range Interpretation [...] CA) 8.3 MG/DL 8.5-10.1 L CBC W/AUTO [id number] 06:39:00 Test Item Value Reference Range Interpretation [...] DIFF/SCN CRITERIA = MDIFF) Coronavirus 2018 nCoV [id number] 05:35:00 Test Item Value Reference Range Interpretation [...] tent with COVID-19. - XR ABDOMEN 1 [id number] 07:32:00 Name: DORA JOSEPH [facility] : 1970 Age/S: 49 / M [address] [address] [place] Unit #: [id number] Loc: [place] [address] Phys: Jay Mayo MD Acct: [id number] Dis Date: Status: ADM IN PHONE #: [phone] Exam Date: 01/10/2020 0658 FAX #: Reason: follow up colonic ileus EXAMS: CPT: [id number] XR ABDOMEN 1 V 46020 Fluoro Time: DAP (Gy m2): Air Kerma [...] 1 Signed Report Name: DORA JOSEPH [facility] : 1970Age/S: 49 / M [address] [address] [place] Unit #: [id number] Loc: [place] [address] Phys: Jay Mayo MD Acct: [id number] Dis Date: Status: ADM IN PHONE #: [phone] Exam Date: 01/10/2020 0658 FAX #: Reason: follow up colonic ileus EXAMS: CPT: [id number] XR ABDOMEN 1 V 07535 Fluoro Time: DAP (Gy m2): Air Kerma (mGy): <Continued> Technologist: Bakari De Leon RT(R)(CT) Trnscb Date/Time: 01/10/2020 (731) GarettCB5 Orig Print D/T: S: 01/10/2020 (0736) PAGE 2 Signed ReportCOMPREHENSIVE METABOLIC [id number] 05:56:00 Test Item Value Reference Range Interpretation [...] TOTAL (test code = ALKP) CBC W/AUTO [id number] 05:42:00 Test Item Value Reference Range Interpretation [...] = NO DIFF/SCN CRITERIA MDIFF) BASIC METABOLIC [id number] 06:59:00 Test Item Value Reference Range Interpretation [...] code = CA) 8.5 MG/DL 8.5-10.1 N [id number] 06:59:00 Test Item Value Reference Range Interpretation Comments MAGNESIUM (test code = MAG) 2.2 MG/DL 1.8-2.4 PROTHROMBIN [id number] 06:39:00 Test Item Value Reference Range Interpretation Comments PT PATIENT (test code = PTP) 13.1 SECONDS 9.3-12.9 H INTERNATIONAL NORMAL RATIO 1.16 INR Unit 0.8-1.2 N (test code = INR) CBC W/AUTO [id number] 06:22:00 Test Item Value Reference Range Interpretation [...] DIFF/SCN CRITERIA MDIFF) - XR ABDOMEN 1 [id number] 05:39:00 Name: DORA JOSEPH [facility] : 1970 Age/S: 49 / M [address] [facility] [place] [place] Unit #: [id number] Loc: [place] [address] 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P Acct: [id number] Dis Date: Status: ADM IN PHONE#: [phone] Exam Date: 01/09/2020522 FAX #: Reason: colonic ileus/obstruction EXAMS: CPT: [id number] XR ABDOMEN 1 V 41621 Fluoro Time: DAP (Gy m2): Air Kerma [...] PAGE 1 Signed Report Name: ADINA JOSEPH [facility] : 1970 Age/S: 49 / M [address] [address] [place] [place] Unit #: [id number] Loc: [place] [address] 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P Acct: [id number] Dis Date: Status: ADM IN PHONE #: [phone] Exam Date: 01/09/2020522 FAX #: Reason: colonic ileus/obstruction EXAMS: CPT: [id number] XR ABDOMEN 1 [id number] Fluoro Time: DAP (Gy m2): Air Kerma (mGy): <Continued> Technologist: Carrie Barnett, RT(R)(CT) Trnscb Date/Time: 01/09/2020 (0539) [id number] Orig Print D/T: S: 01/09/2020 (0542) PAGE 2 Signed ReportCoronavirus 2018 nCoV [id number] 22:38:00 Test Item Value Reference Range Interpretation Comments Coronavirus 2019 nCoV Bedside (test Negative Negative code = [id number]) Emergent procedure? YESCoronavirus 2018 nCoV [id number] 22:38:00 Test Item Value Reference Range Interpretation Comments Coronavirus 2018 nCoV Bedside (test Negative Negative code = [id number]) Emergent procedure? YESBASIC METABOLIC [id number] 18:42:00 Test Item Value Reference Range Interpretation [...] CA) 8.5 MG/DL 8.5-10.1 N CBC W/AUTO [id number] 10:50:00 Test Item Value Reference Range Interpretation [...] = NO DIFF/SCN CRITERIA MDIFF) COMPREHENSIVE METABOLIC [id number] 10:46:00 Test Item Value Reference Range Interpretation [...] 50-136 N TOTAL (test code = ALKP) [id number] 10:46:00 Test Item Value Reference Range Interpretation Comments MAGNESIUM (test code = MAG) 2.6 MG/DL 1.8-2.4 H COMPREHENSIVE METABOLIC [id number] 10:34:00 Test Item Value Reference Range Interpretation [...] TOTAL (test Unit/L 50-136 code = ALKP) [id number] 10:34:00 Test Item Value Reference Range Interpretation Comments MAGNESIUM (test code = MAG) MG/DL 1.8-2.4 - XR ABDOMEN 1 [id number] 08:28:00 Name: DORA JOSEPH [facility] : 1970 Age/S: 49 / M [address] [address] [place] [place] Unit #: [id number] Loc: [place] [address] Phys: Yas Edwards MD Acct: [id number] Dis Date: Status: ADM IN PHONE #: [phone] Exam Date: 01/08/2020509 FAX #: Reason: ileus EXAMS: CPT: [id number] XR ABDOMEN 1V 74835 Fluoro Time: DAP (Gy m2): Air Kerma [...] 1 Signed Report Name: DORA JOSEPH [facility] : 1970 Age/S: 49 / M [address] [address] [place] Unit #: [id number] Loc: [place] [address] Phys: Yas Edwards MD Acct: [id number] Dis Date: Status: ADM IN PHONE #: [phone] Exam Date: 01/08/2020509 FAX #: Reason: ileus EXAMS: CPT: [id number] XR ABDOMEN 1 V 32312 Fluoro Time: DAP (Gy m2): Air Kerma (mGy): <Continued> Technologist: Carrie Barnett, RT(R)(CT); ... Trnscb Date/Time: 01/08/2020 (827) t.TIGRE Orig Print D/T: S: 01/08/2020 (31) PAGE 2 Signed ReportCOMPREHENSIVE METABOLIC [id number] 07:08:00 Test Item Value Reference Range Interpretation [...] 50-136 L TOTAL (test code = ALKP) [id number] 07:08:00 Test Item Value Reference Range Interpretation Comments MAGNESIUM (test code = MAG) 1.3 MG/DL 1.8-2.4 L COMPREHENSIVE METABOLIC [id number] 05:16:00 Test Item Value Reference Range Interpretation [...] 50-136 L TOTAL (test code = ALKP) [id number] 05:16:00 Test Item Value Reference Range Interpretation Comments MAGNESIUM (test code = MAG) 1.3 MG/DL 1.8-2.4 L CBC W/AUTO [id number] 05:02:00 Test Item Value Reference Range Interpretation [...] (test code = NO DIFF/SCN CRITERIA MDIFF) [id number] 16:51:00 Test Item Value Reference Range Interpretation Comments MAGNESIUM (test code = MAG) 2.3 MG/DL 1.8-2.4 N FE W/TOTAL IRON BINDING CAP.2020-01-07 16:51:00 Test Item Value Reference Range Interpretation Comments SERUM IRON (test code = IRON) 38 mcG/DL 65-175 L TOTAL IRON BINDING CAPACITY (test 322 mcG/DL 250-450 N code = TIBC) IRON SATURATION (test code = 12 % calc 12-57 N FESAT) [id number] 16:51:00 Test Item Value Reference Range Interpretation Comments FERRITIN (test code = DAVID) 17.6 NG/ML 5.0-323.0 N CALCIUM [id number] 16:50:00 Test Item Value Reference Range Interpretation Comments CALCIUM IONIZED (test code = NAVEED) 1.12 mmol/L 1.12-1.32 N - XR ABDOMEN 1 [id number] 10:29:00 Name: DORA JOSEPH [facility] : 1970 Age/S: 49 / M [address] [address] [place] Unit #: [id number] Loc: [place] [address] Phys: Verona Frost PA-C Acct: [id number] Dis Date: Status: ADM IN PHONE #: [phone] Exam Date: 01/07/2020 0712 FAX #: Reason: reassess SBO EXAMS: CPT: [id number] XR ABDOMEN 1 V 51977 Fluoro Time: DAP (Gy m2): Air Kerma [...] 1 Signed Report Name: DORA JOSEPH [facility] : 1970 Age/S: 49 / M [address] [address] [place] Unit #: [id number] Loc: [place] [address] Phys: Verona Frost PA-C Acct: [id number] Dis Date: Status: ADM IN PHONE #: [phone] Exam Date: 01/07/2020 0712 FAX #: Reason: reassess SBO EXAMS: CPT: [id number] XR ABDOMEN 1 V 81905 Fluoro Time: DAP (Gy m2): Air Kerma (mGy): <Continued> Technologist: Bakari De Leon RT(R)(CT) Trnscb Date/Time: 01/07/2020 (1020) tUMBERTO Orig Print D/T: S: 01/07/2020 (5634) PAGE 2 Signed ReportBASIC METABOLIC PANEL 2020-01-07 [...] CA) 5.4 MG/DL 8.5-10.1 LL CBC W/AUTO [id number] 06:49:00 Test Item Value Reference Range Interpretation [...] = NO DIFF/SCN CRITERIA MDIFF) COMPREHENSIVE METABOLIC [id number] 06:10:00 Test Item Value Reference Range Interpretation [...] TOTAL (test code = ALKP) CBC W/AUTO [id number] 05:52:00 Test Item Value Reference Range Interpretation [...] DIFF/SCN CRITERIA MDIFF) - XR ABDOMEN 1 [id number] 01:30:00 Name: DORA JOSEPH [facility] : 1970 Age/S: 49 / M [address] [address] [place] [place] Unit #: [id number] Loc: [place] [address] Phys: Ted Coleman NYLON WINDER Acct: [id number] Dis Date: Status: ADM IN PHONE #: [phone] Exam Date: 01/06/202099 FAX #: Reason: NG Tube Placement Verification EXAMS: CPT: [id number] XR ABDOMEN 1 V 07874 Fluoro Time: DAP (Gy m2): Air Kerma [...] M.D. CC: Mark Perea MD; Rafael Coleman NYLON WINDER PAGE 1 Signed Report Name: DORA JOSEPH [facility] : 1970 Age/S: 49 / M [address] [address] [place] [place] Unit #: [id number] Loc: [place] [address] Phys: Ted Coleman NP Acct: [id number] Dis Date: Status: ADM IN PHONE #: [phone] Exam Date: 01/06/202099 FAX #: Reason:NG Tube Placement Verification EXAMS: CPT: [id number] XR ABDOMEN 1 V 49215 Fluoro Time: DAP (Gy m2):Air Kerma (mGy): <Continued> Technologist: RT Tatum(R) Trnscb Date/Time: 01/06/2020 (013) tKARTIK Orig Print D/T: S: 01/06/2020 (013) PAGE 2 Signed Report- CT ABD PELVIS W/O [id number] 19:42:00 Withams: St: REG -- Name: DORA JOSEPH [facility] : 1970 Age/S: 49/M [address] Unit: [id number] Loc: [place], [place]: [place] [address] Acct: [id number] Dis Date:Status: REG ER PHONE #: [phone] Exam Date: 12/13/20191924 FAX #: [phone] Reason: pain EXAMS: CPT CODE: [id number] CT ABD PELVIS W/O CONT 47752 Examination: CT scan abdomen and pelvis withoutcontrast. [...] 12/13/2019 (5 PAGE 1 Signed ReportBASIC METABOLIC [id number] 18:49:00 Test Item Value Reference Range Interpretation [...] code = CA) 8.6 mg/dl 8.0-10.5 N [id number] 18:49:00 Test Item Value Reference Range Interpretation Comments LIPASE (test code = LIP) 97 Units/L 65.0-230.0 N CBC W/AUTO [id number] 18:38:00 Test Item Value Reference Range Interpretation [...] K/mm3 0.0-0.2 N - XR CHEST 1 [id number] 18:36:00 Withams: St: PRE -- Name: DORA JOSEPH [facility] : 1970 Age/S: 49/M [address] [employer] [facility] Unit #: [id number] Loc: [place]: [place] [address] Acct: [id number] Dis Date: Status: PRE ER PHONE #: [phone] Exam Date: 12/13/2019 1822 FAX #: [phone] Reason: SOB EXAMS: CPT CODE: [id number] XR CHEST 1 V 59922 Examination: One view chest x-ray Location code: [...] : By: [email or web address] PAGE 1 Signed Report Withams: St: PRE ----- Name: DORA JOSEPH [facility] : 1970 Age/S: 49/M [address] [facility] Unit #: [id number] Loc: [place], [place]: [place] [address] Acct: [id number] Dis Date: Status: PRE ER PHONE #: [phone] Exam Date: 12/13/2019 1822 FAX #: [phone] Reason: SOB EXAMS: CPT CODE: [id number] XR CHEST 1 V 47838 (Continued) Orig Print D/T: S: 12/13/2019 (183) PAGE 2 Signed ReportCBC W/PLT COUNT & AUTO [id number] 08:02:00 Test Item Value Reference Range Interpretation [...] Received comment: User comments: Slide comments:BASIC METABOLIC [id number] 07:34:00 Test Item Value Reference Range Interpretation [...] S NOT APPLICABLE FOR DIALYSIS PATIEN TS. [id number] 07:26:00 Test Item Value Reference Range Interpretation Comments PHOSPHORUS (BEAKER) (test code = 3.1 mg/dL 2.3-4.7 604) [id number] 07:26:00 Test Item Value Reference Range Interpretation Comments MAGNESIUM (BEAKER) (test code = 1.6 mg/dL 1.6-2.6 627) RAD, ABDOMEN/KUB, 1 VIEW [id number] 07:04:00Reason for exam:->ileusFINAL REPORT Abdomen , one [...] C013X Ortho Consult Reading Room BASIC METABOLIC [id number] 06:47:00 Test Item Value Reference Range Interpretation [...] code = 413) URINALYSIS WITH MICROSCOPIC IF [id number] 22:01:00 Test Item Value Reference Range Interpretation [...] 463) SOURCE(BEAKER) (test code = 2795) URINALYSIS [id number] 22:01:00 Test Item Value Reference Range Interpretation Comments RBC UA (BEAKER) (test code = 519) 18 /HPF WBC UA (BEAKER) (test code = 520) 1 /HPF CALCIUM OXALATE CRYSTALS (BEAKER) Occasional (test code = 518) [id number] 05:49:00 Test Item Value Reference Range Interpretation Comments PHOSPHORUS (BEAKER) (test code = 2.5 mg/dL 2.3-4.7 604) [id number] 05:49:00 Test Item Value Reference Range Interpretation Comments MAGNESIUM (BEAKER) (test code = 1.7 mg/dL 1.6-2.6 627) BASIC METABOLIC [id number] 05:49:00 Test Item Value Reference Range Interpretation [...] (BEAKER) (test code = 413) BASIC METABOLIC [id number] 06:19:00 Test Item Value Reference Range Interpretation [...] S NOT APPLICABLE FOR DIALYSIS PATIEN TS. [id number] 06:10:00 Test Item Value Reference Range Interpretation Comments MAGNESIUM (BEAKER) 1.8 mg/dL 1.6-2.6 Specimen slightly (test code = 627) hemolyzed [id number] 06:10:00 Test Item Value Reference Range Interpretation [...] (BEAKER) (test code = 413) BASIC METABOLIC [id number] 04:57:00 Test Item Value Reference Range Interpretation [...] S NOT APPLICABLE FOR DIALYSIS PATIEN TS. [id number] 04:55:00 Test Item Value Reference Range Interpretation Comments PHOSPHORUS (BEAKER) (test code = 2.6 mg/dL 2.3-4.7 604) [id number] 04:55:00 Test Item Value Reference Range Interpretation Comments MAGNESIUM (BEAKER) (test code = 1.8 mg/dL 1.6-2.6 627) CT, [id number] 14:16:00FINAL REPORT TECHNIQUE: CT of the abdomen [...] site likely represents postsurgical change. Signed: Marsha Kimort Verified Date/Time: 03/29/2019 14:16:01Reading Location: [address] Body Reading Room , ABDOMEN/KUB, 1 VIEW [id number] 10:23:00Reason for exam:->evaluate ileusFINAL REPORT Technique: Supine [...] Urbinaeport Verified Date/Time: 03/29/2019 10:23:29 Reading Location: [facility] Reading Room CBC (HEMOGRAM ONLY)2019-03-29 [...] WBC 0-0 (BEAKER) (test code = 413) [id number] 06:20:00 Test Item Value Reference Range Interpretation Comments PHOSPHORUS (BEAKER) (test code = 2.6 mg/dL 2.3-4.7 604) [id number] 06:20:00 Test Item Value Reference Range Interpretation Comments MAGNESIUM (BEAKER) (test code = 2.0 mg/dL 1.6-2.6 627) BASIC METABOLIC [id number] 06:20:00 Test Item Value Reference Range Interpretation [...] TS. RAD, ABDOMEN SERIES W/ UPRIGHT PA [id number] 22:18:00Reason for exam:- >eval ileusFINAL REPORT CLINICAL [...] Date/Time: 03/28/2019 22:18:50 RAD, ABDOMEN/KUB, 1 VIEW [id number] 11:23:00Reason for exam:->abdominal distensionShould this be performed [...] MDReport Verified Date/Time: 03/28/2019 11:23:34 Reading Location: [facility] Radiology Reading Room TISSUE [id number] 09:00:00Surgical Pathology Report Case: [id number] Authorizing Provider: Graciela Garrison MD Collected: 03/25/2019 1133 Ordering Location: [facility] Received: 03/25/2019 1527 [...] FOR MALIGNANCY Signing Pathologist Direct Phone Line: [phone] signed by Jordan Celaya MD on 03/28/2019 at 9:00 [id number] and postop diagnosis: ileostomy statusA. End ileostomy; [...] nodes are not identified in the mesentery. Chrome Tanning Drum Operator sections are submitted. Section code: A, unit support representative section of each end of first mentioned segment of small bowel; A2, unit support representative of first mentioned segment of small bowel mucosa; A3, area of hemorrhagic mesentery of second mentioned segment of mucosa; A4, unit support representative of hemorrhagic mucosa at open end of second portion of small bowel; A5, unit support representative of stapled margin from second [...] 0.2 cm. No gross lesions are identified. Chrome Tanning Drum Operator sections are submitted. Section code: B1, proximal margin en face and tip; B2, unit support representative cross section. CG/pl Performed.[id number] 06:23:00 Test Item Value Reference Range Interpretation Comments PHOSPHORUS (BEAKER) (test code = 2.7 mg/dL 2.3-4.7 604) [id number] 06:23:00 Test Item Value Reference Range Interpretation Comments MAGNESIUM (BEAKER) (test code = 1.9 mg/dL 1.6-2.6 627) BASIC METABOLIC [id number] 06:23:00 Test Item Value Reference Range Interpretation [...] S NOT APPLICABLE FOR DIALYSIS PATIEN TS. [id number] 08:20:00 Test Item Value Reference Range Interpretation Comments PHOSPHORUS (BEAKER) (test code = 2.6 mg/dL 2.3-4.7 604) [id number] 08:20:00 Test Item Value Reference Range Interpretation Comments MAGNESIUM (BEAKER) (test code = 1.8 mg/dL 1.6-2.6 627) BASIC METABOLIC [id number] 08:20:00 Test Item Value Reference Range Interpretation [...] S NOT APPLICABLE FOR DIALYSIS PATIEN TS. [id number] 06:06:00 Test Item Value Reference Range Interpretation Comments PHOSPHORUS (BEAKER) (test code = 4.1 mg/dL 2.3-4.7 604) [id number] 06:06:00 Test Item Value Reference Range Interpretation Comments MAGNESIUM (BEAKER) (test code = 1.8 mg/dL 1.6-2.6 627) BASIC METABOLIC [id number] 06:06:00 Test Item Value Reference Range Interpretation [...] S NOT APPLICABLE FOR DIALYSIS PATIEN TS. [id number] 06:03:00 Test Item Value Reference Range Interpretation Comments PHOSPHORUS (BEAKER) (test code = 4.2 mg/dL 2.3-4.7 604) [id number] 06:03:00 Test Item Value Reference Range Interpretation Comments MAGNESIUM (BEAKER) (test code = 2.0 mg/dL 1.6-2.6 627) BASIC METABOLIC [id number] 06:03:00 Test Item Value Reference Range Interpretation [...] WBC 0-0 (BEAKER) (test code = 413) [id number] 05:52:00 Test Item Value Reference Range Interpretation Comments PHOSPHORUS (BEAKER) (test code = 4.2 mg/dL 2.3-4.7 604) [id number] 05:52:00 Test Item Value Reference Range Interpretation Comments MAGNESIUM (BEAKER) (test code = 1.9 mg/dL 1.6-2.6 627) BASIC METABOLIC [id number] 05:52:00 Test Item Value Reference Range Interpretation [...] S NOT APPLICABLE FOR DIALYSIS PATIFLORENCE TS. [id number] 06:51:00 Test Item Value Reference Range Interpretation Comments PHOSPHORUS (BEAKER) (test code = 4.3 mg/dL 2.3-4.7 604) [id number] 06:51:00 Test Item Value Reference Range Interpretation Comments MAGNESIUM (BEAKER) (test code = 2.0 mg/dL 1.6-2.6 627) BASIC METABOLIC [id number] 06:51:00 Test Item Value Reference Range Interpretation [...] 0-0 (BEAKER) (test code = 413) TISSUE [id number] 11:50:00Surgical Pathology Report Case: [id number] Authorizing Provider: Mela Larson MD Collected: 03/18/2019 1827 Ordering Location: [facility] Received: 03/21/2019 0823 SERVICES Pathologist: Jordan Celaya MD Specimen: Small Bowel, NOS A. SMALL BOWEL, ILEOSTOMY PROLAPSE, TAKEDOWN: - ANASTOMOSIS SITE WITH ACTIVE CHRONIC INFLAMMATION AND FOCAL ISCHEMIC CHANGES - MUCOSAL RESECTIONMARGINS, NEGATIVE FOR MALIGNANCY - ONE BENIGN LYMPH NODE (0/1) - NEGATIVE FOR DYSPLASIA OR MALIGNANCY Signing Pathologist Direct Phone Line: [phone] signed by Jordan Celaya MD on 03/22/2019 at 11:50 [id number] of ileostomyReceived in a container labeled "small [...] 0.5 to 1.2 cm in greatest dimension. Chrome Tanning Drum Operator sections are submitted as follows: A1-A2, mucosal resection margin, en face; A3-A6, unit support representative sections of the possible ostomy stump; A7-A11, serial unit support representative sections from mucosal resection margin to the possible ostomy stump; A12, two lymph nodes. TH/plPerformed.[id number] 06:58:00 Test Item Value Reference Range Interpretation Comments PHOSPHORUS (BEAKER) (test code = 3.8 mg/dL 2.3-4.7 604) [id number] 06:58:00 Test Item Value Reference Range Interpretation Comments MAGNESIUM (BEAKER) (test code = 2.0 mg/dL 1.6-2.6 627) BASIC METABOLIC [id number] 06:58:00 Test Item Value Reference Range Interpretation [...] PATIEN TS. CBC W/PLT COUNT & AUTO [id number] 05:42:00 Test Item Value Reference Range Interpretation [...] PERCENT (BEAKER) (test code = 2801) FL, [id number] 17:42:00Reason for exam:->evaluate for colon stricture as [...] Number of images obtained: 11 Signed: David Lopezort Verified Date/Time: 03/21/2019 17:42:21 Reading Location: [address] Consult Reading Room [id number] 03:58:00 Test Item Value Reference Range Interpretation Comments PHOSPHORUS (BEAKER) (test code = 3.0 mg/dL 2.3-4.7 604) [id number] 03:58:00 Test Item Value Reference Range Interpretation Comments MAGNESIUM (BEAKER) (test code = 2.0 mg/dL 1.6-2.6 627) BASIC METABOLIC [id number] 03:58:00 Test Item Value Reference Range Interpretation [...] PATIEN TS. CBC W/PLT COUNT & AUTO [id number] 03:20:00 Test Item Value Reference Range Interpretation [...] (BEAKER) (test code = 2801) BASIC METABOLIC [id number] 06:26:00 Test Item Value Reference Range Interpretation [...] S NOT APPLICABLE FOR DIALYSIS PATIFLORENCE TS. [id number] 06:05:00 Test Item Value Reference Range Interpretation Comments PHOSPHORUS (BEAKER) (test code = 2.2 mg/dL 2.3-4.7 L 604) [id number] 06:05:00 Test Item Value Reference Range Interpretation Comments MAGNESIUM (BEAKER) (test code = 2.0 mg/dL 1.6-2.6 627) CBC W/PLT COUNT & AUTO [id number] 05:25:00 Test Item Value Reference Range Interpretation [...] 0-1 PERCENT (BEAKER) (test code = 2801) [id number] 04:31:00 Test Item Value Reference Range Interpretation Comments PHOSPHORUS (BEAKER) (test code = 3.7 mg/dL 2.3-4.7 604) [id number] 04:31:00 Test Item Value Reference Range Interpretation Comments MAGNESIUM (BEAKER) (test code = 1.9 mg/dL 1.6-2.6 627) BASIC METABOLIC [id number] 04:31:00 Test Item Value Reference Range Interpretation [...] PATIEN TS. CBC W/PLT COUNT & AUTO [id number] 04:15:00 Test Item Value Reference Range Interpretation [...] 0-1 PERCENT (BEAKER) (test code = 2801) [id number] 06:41:00 Test Item Value Reference Range Interpretation Comments PHOSPHORUS (BEAKER) (test code = 3.1 mg/dL 2.3-4.7 604) [id number] 06:41:00 Test Item Value Reference Range Interpretation Comments MAGNESIUM (BEAKER) (test code = 1.9 mg/dL 1.6-2.6 627) BASIC METABOLIC [id number] 06:41:00 Test Item Value Reference Range Interpretation [...] PATIEN TS. CBC W/PLT COUNT & AUTO [id number] 06:36:00 Test Item Value Reference Range Interpretation [...] PERCENT (BEAKER) (test code = 2801) CT, [id number] 17:04:00No PO contrastFINAL REPORT ABDOMINAL AND PELVIS [...] MDReport Verified Date/Time: 03/17/2019 17:04:19 Reading Location: [facility] C013Y CT Body Reading Room XR ABDOMEN 2 [id number] 09:03:45XR ABDOMEN 2 VIEWSLOCATION: Z13IGHEDLX: Colstomy ProlapseCOMPARISON: Chest radiograph 04/15/2017, CT of [...] Nonspecific, nonobstructive bowel gas pattern.XR CHEST 1 [id number] 11:32:15EXAM: CHEST ONE VIEWINDICATION: Chest painCOMPARISON: None availableTECHNIQUE: AP view of the chest.FINDINGS: The cardiomediastinal silhouette is normal. The lungs are clearbilaterally. No pneumothoraxor pleural effusion is identified. Theosseous structures are unremarkable.IMPRESSION: No acute cardiopulmonary process.LOCATION: X73Fllzx Type and [id number] 21:21:00 Test Item Value Reference Range Interpretation Comments ABO type (test code = ABO) O Rh Type (test code = RH) Positive Comprehensive Metabolic [id number] 20:36:00 Test Item Value Reference Range Interpretation [...] ars ofage have not been validated by gabbi e MDRD study and rashi westfall be interpretedwith caution.eGFR Re sult Interpretation: eGFR > or = 60 is in t he Normal RangeeGF R < 60 may mean kidney diseaseeGFR < 1 5 may mean kidney failureRange s recommended by the National Kidney Foundation,http ://nkd ep.nih.gov Alcohol/Ethanol, [id number] 20:36:00 Test Item Value Reference Range Interpretation Comments Alcohol, Ethyl <0.01 g/dL 0.00-0.01 N Intoxicated 0 .080 g/dL (test code = ETOH) or more Prothrombin [id number] 20:00:00 Test Item Value Reference Range Interpretation Comments PT (test code = PT) 10.10 seconds 9.78-13.35 N INR (test code = INR) 0.88 Ratio 0.6-1.2 N Partial Thromboplastin [id number] 20:00:00 Test Item Value Reference Range Interpretation Comments aPTT (test code = PTT) 31.50 seconds 24.39-37.25 N CBC with [id number] 19:50:00 Test Item Value Reference Range Interpretation [...] code = ALYMPH) 2.2 K/cumm 0.5-4.6 N Bucks Abs (test code = AMONO) 0.4 K/cumm 0.0-1.2 N Eos Abs (test code = AEOS) 0.17 K/cumm 0.00-0.74 N Baso Abs (test code = ABASO) 0.0 K/cumm 0.00-0.21 N 32677& PELVIS W/O [id number] 17:36:28CT ABDOMEN AND PELVIS WITHOUT CONTRAST.CLINICAL HISTORY: [...]
[2022-09-14 03:41] LABS: Absolute Lymphocytes (CBC) 1.3 K/uL (0.7-4.9); Hematocrit 28.8 % (39.6-49.0); Lymphocytes % 15.7 % (15.3-44.8); MCV 87.8 fL (80-100); MPV 6.2 fL (7.6-11.3); RBC Red Blood Cell Count 3.28 M/uL (4.33-5.43)
[2022-09-14 03:58] LABS: Albumin 2.7 g/dL (3.4-5.0); Bilirubin Total 0.1 mg/dL (0.2-1.0); Magnesium 1.8 mg/dL (1.6-2.4); Potassium 4.2 mmol/L (3.5-5.1); Protein, Total 6.3 g/dL (6.4-8.2)
--- NOTE | 2022-09-14 04:15 | EDPHYS ---
Physician Documentation [facility] Name: iRco Mcneill Age: 52 yrs Sex: Male : 1970 Arrival Date: 09/14/2022 Time: 02:58 Bed 5 Private MD: ED Physician Clifton Ventura HPI: 09/14 03:34 This 52 yrs old Male presents to ER via EMS with complaints of Syncope. rt 03:34 The patient has experienced near-syncope. Onset: The symptoms/episode began/occurred rt just prior to arrival. Associated injury: The patient did not suffer any apparent associated injury. Associated signs and symptoms: Pertinent positives: dizziness. She was recently mated to the hospital with hyponatremia, ALMA, increased ostomy output. Was discharged from the hospital yesterday. Patient states that he was at a [employer], stood up quickly and became lightheaded. Denies completely losing consciousness. States that he feels somewhat dizzy and weak at this time. Denies other acute complaints at this time. Symptoms are moderate in severity, no other aggravating or alleviating factors.. Historical: - Allergies: 03:00 NKDA; as6 - PMHx: 03:00 ileostomy; Hypertensive disorder; as6 - PSHx: 03:00 Small bowel resection with ileostomy; as6 - Immunization history:: Client reports receiving the 2nd dose of the Covid vaccine, Flu vaccine is not up to date. - Social history:: Smoking status: Patient reports use of chewing tobacco. - Family history:: not pertinent. ROS: 03:34 Constitutional: Negative for fever, chills, and weight loss, Eyes: Negative for injury, rt pain, redness, and discharge, Cardiovascular: Negative for chest pain, palpitations, and edema, Respiratory: Negative for shortness of breath, cough, wheezing, and pleuritic chest pain, MS/Extremity: Negative for injury and deformity, Skin: Negative for injury, rash, and discoloration, Psych: Negative for depression, anxiety, suicide ideation, homicidal ideation, and hallucinations. 03:34 Abdomen/GI: Positive for diarrhea, Negative for abdominal pain. 03:34 Neuro: Positive for dizziness, weakness. Exam: 03:34 Constitutional: This is a well developed, well nourished patient who is awake, alert, rt and in no acute distress. Head/Face: Normocephalic, atraumatic. Chest/axilla: Normal chest wall appearance and motion. Nontender with no deformity. No lesions are appreciated. Cardiovascular: Regular rate and rhythm with a normal S1 and S2. No gallops, murmurs, or rubs. Normal PMI, no JVD. No pulse deficits. Respiratory: Lungs have equal breath sounds bilaterally, clear to auscultation and percussion. No rales, rhonchi or wheezes noted. No increased work of breathing, no retractions or nasal flaring. Skin: Warm, dry with normal turgor. Normal color with no rashes, no lesions, and no evidence of cellulitis. MS/ Extremity: Pulses equal, no cyanosis. Neurovascular intact. Full, normal range of motion. Neuro: Awake and alert, GCS 15, oriented to person, place, time, and situation. Cranial nerves II-XII grossly intact. Motor strength 5/5 in all extremities. Sensory grossly intact. Cerebellar exam normal. Normal gait. Psych: Awake, alert, with orientation to person, place and time. Behavior, mood, and affect are within normal limits. 03:34 Abdomen/GI: STEMI to the right lower quadrant with prolapse, no abdominal tenderness. 03:46 ECG was reviewed by the Attending Physician. rt Vital Signs: 02:58 BP 110 / 66; Pulse 82; Resp 13 S; Temp 98.0(O); Pulse Ox 100% on R/A; Weight 68.04 kg as6 (R); Height 6 ft. 1 in. (185.42 cm) (R); Pain 8/10; 04:15 BP 111 / 75; Pulse 80; Resp 15 S; Pulse Ox 99% on R/A; aa9 02:58 Body Mass Index 19.79 (68.04 kg, 185.42 cm) as6 MDM: 03:10 Patient medically screened. rt 04:14 Differential Diagnosis: Duration, PE, near syncope, hyponatremia, hypomagnesemia, acute rt kidney injury. Data reviewed: vital signs, nurses notes, old medical records, lab test result(s), EKG, radiologic studies. Test considered but Not performed: X-ray: No respiratory symptoms, chest pain. External Records Reviewed: Inpatient record: Discharge, labs are stable with compared to discharge.. Care significantly affected by the following chronic conditions: Ileostomy with chronic diarrhea. Care significantly affected by the following Social Determinants of Health: Inadequate housing. Counseling: I had a detailed discussion with the patient and/or guardian regarding: the historical points, exam findings, and any diagnostic results supporting the discharge/admit diagnosis, lab results, the need for outpatient follow up, a family practitioner. 09/14 03:15 Order name: CBC with Diff; Complete Time: 04:03 rt 09/14 03:15 Order name: CMP; Complete Time: 04:03 rt 09/14 03:15 Order name: Magnesium; Complete Time: 04:03 rt 09/14 03:15 Order name: Troponin High Sensitivity; Complete Time: 04:03 rt 09/14 03:15 Order name: EKG; Complete Time: 03:15 rt 09/14 03:15 Order name: EKG - Nurse/Tech; Complete Time: 03:46 rt EC:46 Rate is 76 beats/min. Rhythm is regular, Normal Sinus Rhythm with No ectopy. QRS [place] rt is Normal. UT interval is normal. QRS interval is normal. QT interval is normal. No Q waves. T waves are Normal. No ST changes noted. Interpreted by me. Administered Medications: 03:30 Drug: NS 0.9% 1000 ml Route: IV; Rate: 1 bolus; Site: right forearm; aa9 04:19 Follow up: Response: No adverse reaction; IV Status: Completed infusion; IV Intake: aa9 1000ml Disposition Summary: 09/14/22 04:14 Discharge Ordered Location: Home rt Problem: an ongoing problem rt Symptoms: have improved rt Condition: Stable rt Diagnosis - near syncope rt Followup: rt - With: Private Physician - When: 2 - 3 days - Reason: Discharge Instructions: - Discharge Summary Sheet rt - Near-Syncope rt Forms: - Medication Reconciliation Form rt - Thank You Letter rt - Antibiotic Education rt - Prescription Opioid Use rt Signatures: Dispatcher [employer] Clarence Callahan RN RN as6 Jacqueline Stark RN RN aa9 Clifton Ventura MD MD rt
--- NOTE | 2022-09-14 04:15 | ER ---
Nurse's Notes [facility] Name: Rico Mcneill Age: 52 yrs Sex: Male : 1970 Arrival Date: 09/14/2022 Time: 02:58 Bed 5 Private MD: Diagnosis: near syncope Presentation: 09/14 02:58 Chief complaint: EMS states: called out for dizziness. pt reports that he was in the as6 [employer] bathroom and had several dizzy episodes where he felt like he was going to pass out. Coronavirus screen: At this time, the client does not indicate any symptoms associated with coronavirus-19. Ebola Screen: No symptoms or risks identified at this time. Initial Sepsis Screen: Does the patient meet any 2 criteria? No. Patient's initial sepsis screen is negative. Does the patient have a suspected source of infection? No. Patient's initial sepsis screen is negative. Risk Assessment: Do you want to hurt yourself or someone else? Patient reports no desire to harm self or others. Onset of symptoms was September 14, 2022. Care prior to arrival: None. 02:58 Method Of Arrival: EMS: [facility] as6 02:58 Acuity: OCTAVIO 3 as6 Historical: - Allergies: 03:00 NKDA; as6 - PMHx: 03:00 ileostomy; Hypertensive disorder; as6 - PSHx: 03:00 Small bowel resection with ileostomy; as6 - Immunization history:: Client reports receiving the 2nd dose of the Covid vaccine, Flu vaccine is not up to date. - Social history:: Smoking status: Patient reports use of chewing tobacco. - Family history:: not pertinent. Screenin:00 [facility] ED Fall Risk Assessment (Adult) Score/Fall Risk Level 0 - 2 = Low Risk. Abuse as6 screen: Denies threats or abuse. Denies injuries from another. Nutritional screening: No deficits noted. Tuberculosis screening: No symptoms or risk factors identified. Assessment: 03:46 General: Appears in no apparent distress. comfortable, slender, Behavior is calm, aa9 cooperative, appropriate for age. Pain: Complains of pain in abdomen. Neuro: Level of Consciousness is awake, alert, obeys commands, Oriented to person, place, time, situation. Cardiovascular: Patient's skin is warm and dry. Respiratory: Airway is patent Respiratory effort is even, unlabored. GI: Abdomen is flat, Ileostomy site is intact. : No signs and/or symptoms were reported regarding the genitourinary system. Derm: Skin is intact, is healthy with good turgor. 04:23 Reassessment: Patient appears in no apparent distress at this time. Patient and/or aa9 family updated on plan of care and expected duration. Pain level reassessed. Patient is alert, oriented x 3, equal unlabored respirations, skin warm/dry/pink. Vital Signs: 02:58 BP 110 / 66; Pulse 82; Resp 13 S; Temp 98.0(O); Pulse Ox 100% on R/A; Weight 68.04 kg as6 (R); Height 6 ft. 1 in. (185.42 cm) (R); Pain 8/10; 04:15 BP 111 / 75; Pulse 80; Resp 15 S; Pulse Ox 99% on R/A; aa9 02:58 Body Mass Index 19.79 (68.04 kg, 185.42 cm) as6 ED Course: 02:58 Patient arrived in ED. as6 03:00 Triage completed. as6 03:00 Arm band placed on. as6 03:00 Placed in gown. Bed in low position. Call light in reach. Side rails up X2. Client as6 placed on continuous cardiac and pulse oximetry monitoring. NIBP monitoring applied. Warm blanket given. 03:01 Clifton Ventura MD is Attending Physician. rt 03:25 Inserted saline lock: 20 gauge in right forearm, using aseptic technique. Blood aa9 collected. 03:45 Jacqueline Stark RN is Primary Nurse. aa9 03:46 Magnesium Sent. aa9 03:46 CMP Sent. aa9 03:46 Troponin High Sensitivity Sent. aa9 04:23 No provider procedures requiring assistance completed. IV discontinued, intact, aa9 bleeding controlled, No redness/swelling at site. Pressure dressing applied. Administered Medications: 03:30 Drug: NS 0.9% 1000 ml Route: IV; Rate: 1 bolus; Site: right forearm; aa9 04:19 Follow up: Response: No adverse reaction; IV Status: Completed infusion; IV Intake: aa9 1000ml Medication: 03:01 VIS not applicable for this client. as6 Intake: 04:19 IV: 1000ml; Total: 1000ml. aa9 Outcome: 04:14 Discharge ordered by . rt 04:24 Discharged to home ambulatory. aa9 04:24 Condition: stable 04:24 Discharge instructions given to patient, Instructed on discharge instructions, follow up and referral plans. Demonstrated understanding of instructions, follow-up care. 04:25 Patient left the ED. aa9 Signatures: Clarence Thomas RN RN as6 Jacqueline Satrk RN RN aa9 Clifton Ventura MD MD rt
[2022-09-14 05:55] VITALS: TEMP 98
[2022-09-14 05:56] VITALS: BP 111/75; O2SAT 99
[2022-09-14] MEDS ORDERED: ACETAMINOPHEN 500 MG TAB ONE (06:16)
--- NOTE | 2022-09-15 16:52 | EKG ---
Test Date: 2022-09-14 Test Time: 03:25:40 Toolroom Attendant: ALICE MEASUREMENT RESULTS: Intervals: Rate: 76 KS: 132 QRSD: 92 QT: 356 QTc: 400 [place]: P: 63 KS: 132 QRS: 70 T: 73 INTERPRETIVE STATEMENTS: Normal sinus rhythm Normal ECG Compared to ECG 09/09/2022 12:20:02 No significant changes Electronically Signed On 09-15-22 16:50:43 MANAGER EPIC by Rivera Ascencio
== END 2022-09-14 04:25 | disposition home or self-care (01) ==
LOC: ER 02:52
DX: R55 Syncope and collapse (principal); I10 Essential (primary) hypertension; F17.220 Nicotine dependence, chewing tobacco, uncomplicated
CPT/HCPCS: 36415; 80053; 83735; 84484; 85025; 93005; 96360; 99284; J7030

== ENCOUNTER 2022-09-14 05:50 | Emergency (ER) | payer SELFPAY ==
--- OUTSIDE RECORDS SUMMARY | 2022-09-14 06:09 | XMS REPORT | Continuity of Care Document ---
:1970 Author Organization [facility] t Address [address] [place] [address] Care Team Providers Name Role Phone UNKNOWN, REFFERING Primary Care Physician Unavailable Coco Nova Attending Clinician Unavailable Mark Perea Attending Clinician Unavailable Steve Urias Attending Clinician Unavailable YESSI RAMOS Attending Clinician Unavailable NELSON GARCIA Attending Clinician Unavailable KENDRA CARDENAS Attending Clinician Unavailable LEÓN JOYNER Attending Clinician Unavailable Aryan Tello MD Attending Clinician [phone] Marty CAPONE, Dee Dee Nelson Attending Clinician Shiela CAPONE, Romie Attending Clinician Pao Barton MD Attending Clinician Anya CAPONE, León Shaw Attending Clinician [phone] Teddy Carbajal MD Attending Clinician Bernabe Calvert [...] Clinician Lindsey Escobar, Steve Santana Attending Clinician [phone] KARIN BASSETT Attending Clinician Unavailable Bert [...] Number Effective Date Expiration Date S kashif PFA EMERGENCY [id number] 2019 ADMIT 00:00:00 Problems Condition Condition Condition Status Onset Resolution Last Treating Co mments Source Name Details Category Date Date Treatment Clinician Date Lightheade Lightheade Disease Active [facility] [place] Altered Altered Disease Active [place] bowel bowel 01-19 [facility] eliminatio eliminatio 00:00: [...] [facility] prolapse prolapse [facility]: Medica l 00 [place] Disorder Disorder Disease Active [facility] stoma of stoma 15 [facility] 00:00: 00 Dehydratio Dehydratio Disease Active H arris n n Health Encounter Encounter Disease Active Compa ris for ostomy for ostomy [facility] care education education ALMA (acute ALMA [...] U [facility] 6-09 [facility] 00:00: [address] No Known DA Active U 2020-08 [facility] 1-29 [facility] 00:00: d 00 [facility] No Known DA Active U [facility] 9-05 Clear s 00:00: [facility] No Known DA Active U [facility] 9-05 [facility] s 00:00: Bhatt [facility] No Known DA Active U [facility] 7-03 [facility] s 00:00: Bhatt [facility] No Known DA Active U [facility] 5-14 [facility] s 00:00: Bhatt [facility] No Known DA Active U [...] Alcohol intake 2022-02-18 2022-02-18 Current drinker of [facility] 00:00:00 00:00:00 alcohol (finding) History [facility] 2019-03-17 2019-03-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 [facility] Alcohol Comment 00:00:00 00:00:00 Medical C enter Tobacco use and 2019-03-17 2019-03-[address] [facility] exposure 00:00:00 00:00:00 Medical Center History SDOR Food 2017-04-14 2017-04-14 1 [facility] Worry 00:00:00 00:00:00 History SDOR Food 2017-04-14 2017-04-14 1 [facility] Scarcity 00:00:00 00:00:00 Sex [birth year] At [birth year] Maged Douglas alth 00:00:00 00:00:00 Smoking Status Start Date Stop Date Source Never smoker [facility] Medications Ordered Filled Start [...] intestinal ostomy loperamide 2021- No Altered 4mg Q.80487152 Take 2 [facility] (IMODIUM) 2 02-20 bowel [id number] capsules Health mg capsule 00:00: 23:59 elimination [...] intestinal ostomy loperamide 2021- No Altered 4mg Q.39057017 Take 2 [facility] (IMODIUM) 2 02-20 bowel [id number] capsules Health mg capsule 00:00: 23:59 elimination [...] intestinal ostomy loperamide 2021- No Altered 4mg Q.05331951 Take 2 [facility] (IMODIUM) 2 02-20 bowel [id number] capsules Health mg capsule 00:00: 23:59 elimination [...] intestinal ostomy loperamide 2021- No Altered 4mg Q.63833458 Take 2 [facility] (IMODIUM) 2 02-20 bowel [id number] capsules Health mg capsule 00:00: 23:59 elimination [...] intestinal ostomy loperamide 2021- No Altered 4mg Q.33437041 Take 2 [facility] (IMODIUM) 2 02-20 bowel [id number] capsules Health mg capsule 00:00: 23:59 elimination [...] intestinal ostomy loperamide 2021- No Altered 4mg Q.69919218 Take 2 [facility] (IMODIUM) 2 02-20 bowel [id number] capsules Health mg capsule 00:00: 23:59 elimination [...] intestinal ostomy loperamide 2021- No Altered 4mg Q.49871783 Take 2 [facility] (IMODIUM) 2 02-20 bowel [id number] capsules Health mg capsule 00:00: 23:59 elimination [...] intestinal ostomy loperamide 2021- No Altered 4mg Q.71259295 Take 2 [facility] (IMODIUM) 2 02-20 bowel [id number] capsules Health mg capsule 00:00: 23:59 elimination [...] intestinal ostomy loperamide 2021- No Altered 4mg Q.75515769 Take 2 [facility] (IMODIUM) 2 02-2030 bowel [id number] capsules Health mg capsule 00:00: 23:59 elimination [...] intestinal ostomy loperamide 2021- No Altered 4mg Q.86372941 Take 2 [facility] (IMODIUM) 2 02-2030 bowel [id number] capsules Health mg capsule 00:00: 23:59 elimination [...] intestinal ostomy loperamide 2021- No Altered 4mg Q.24824687 Take 2 [facility] (IMODIUM) 2 02-20-30 bowel [id number] capsules Health mg capsule 00:00: 23:59 elimination [...] intestinal ostomy loperamide 2021- No Altered 4mg Q.24907304 Take 2 [facility] (IMODIUM) 2 02-2030 bowel [id number] capsules Health mg capsule 00:00: 23:59 elimination [...] intestinal ostomy loperamide 2021- No Altered 4mg Q.89750216 Take 2 [facility] (IMODIUM) 2 02-20-30 bowel [id number] capsules Health mg capsule 00:00: 23:59 elimination [...] intestinal ostomy loperamide 2021- No Altered 4mg Q.88584361 Take 2 [facility] (IMODIUM) 2 02-20-30 bowel [id number] capsules Health mg capsule 00:00: 23:59 elimination [...] intestinal ostomy loperamide 2021- No Altered 4mg Q.74193421 Take 2 [facility] (IMODIUM) 2 02-20-30 bowel [id number] capsules Health mg capsule 00:00: 23:59 elimination [...] intestinal ostomy loperamide 2021- No Altered 4mg Q.73703761 Take 2 [facility] (IMODIUM) 2 - 07-30 bowel [id number] capsules Health mg capsule 00:00: 23:59 elimination [...] intestinal ostomy loperamide 2021- No Altered 4mg Q.04295823 Take 2 [facility] (IMODIUM) 2 02-20-30 bowel [id number] capsules Health mg capsule 00:00: 23:59 elimination [...] intestinal ostomy loperamide 2021- No Altered 4mg Q.91431207 Take 2 [facility] (IMODIUM) 2 02-20-30 bowel [id number] capsules Health mg capsule 00:00: 23:59 elimination [...] intestinal ostomy loperamide 2021- No Altered 4mg Q.85540734 Take 2 [facility] (IMODIUM) 2 02-20 bowel [id number] capsules Health mg capsule 00:00: 23:59 elimination [...] [facility] (METAMUCIL) 02-11-30 bowel t} [facility] 6 gram PwPk 00:00: 00:00 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 psyllium 2021- No Altered 1{packe Take 1 [facility] (METAMUCIL) 02-11-30 bowel t} [facility] by [facility] 6 gram PwPk 00:00: 00:00 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 psyllium 2021- No Altered 1{packe Take 1 [facility] (METAMUCIL) 02-11-30 bowel t} [facility] by [facility] 6 gram PwPk 00:00: 00:00 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 psyllium 2021- No Altered 1{packe Take 1 [facility] (METAMUCIL) 02-11-30 bowel t} [facility] by [facility] 6 gram PwPk 00:00: 00:00 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 psyllium 2021- No Altered 1{packe Take 1 [facility] (METAMUCIL) 02-11-30 bowel t} [facility] 6 gram PwPk 00:00: 00:00 elimination [...] (METAMUCIL) 02-11 06-30 bowel t} Packet by [facility] 6 gram [...] Lyn[facility] (METAMUCIL) 02-11 bowel t} Packet by [facility] 6 gram PwPk 00:00: 00:00 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 psyllium 2021- No Altered 1{packe Take 1 [facility] (METAMUCIL) 02-11 bowel t} Packet by [facility] 6 gram PwPk 00:00: 00:00 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 psyllium 2021- No Altered 1{packe Take 1 [facility] (METAMUCIL) 02-11 bowel t} Packet by Gre[facility] 6 gram PwPk 00:00: 00:00 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 ascorbic 2021- No Altered 250mg QD Take 1 [facility] acid, 01-21 bowel tablet by [facility] vitamin C, 00:00: 23:59 elimination mouth 250 mg 00 :00 due to daily for tablet intestinal 60 days ostomy magnesium 2021- No Altered 800mg Q.5D Take 2 H arris oxide 01-21 bowel tablets by [facility] (MAG-OX) 00:00: 23:59 elimination mouth 2 400 mg 00 :00 due to times (241.3 mg intestinal daily for magnesium) ostomy 60 days tablet multivitami 2021- No Altered 1{tbl} QD Take 1 [facility] n with 01-21 bowel tablet by [facility] folic acid 00:00: 23:59 elimination mouth (THERA) 400 00 :00 due to daily for mcg tablet intestinal 60 days ostomy ascorbic 2021- No Altered 250mg QD Take 1 [facility] rris acid, 01-21 bowel tablet by [facility] vitamin C, 00:00: 23:59 elimination mouth 250 mg 00 :00 due to daily for tablet intestinal 60 days ostomy magnesium 2021- No Altered 800mg Q.5D Take 2 H arris oxide 01-21-30 bowel tablets by [facility] (MAG-OX) 00:00: 23:59 elimination mouth 2 400 [...] Momin rris acid, 01-21-30 bowel tablet by [facility] vitamin C, 00:00: 23:59 elimination mouth 250 mg 00 :00 due to daily for tablet intestinal 60 days ostomy magnesium 2021- No Altered 800mg Q.5D Take 2 H arris oxide 01-21-30 bowel tablets by [facility] (MAG-OX) 00:00: 23:59 elimination mouth 2 400 [...] Momin rris acid, 01-21-30 bowel tablet by [facility] vitamin C, 00:00: 23:59 elimination mouth 250 [...] 800mg Q.5D Take 2 H arris oxide -31 07-30 bowel tablets by Health (MAG-OX) 00:00: [...] rris acid, 5-23 03-30 bowel tablet by [facility] vitamin C, 00:00: 23:59 elimination mouth 250 [...] 1{tbl} QD Take 1 [facility] n with - 07-30 bowel tablet by Health folic acid 00:00: 23:59 elimination mouth (THERA) 400 00 :00 due to daily for mcg tablet intestinal 60 days ostomy ascorbic 2021- No Altered 250mg QD Take 1 [facility] rris acid, - 07-30 bowel tablet by [facility] vitamin C, 00:00: 23:59 elimination mouth 250 [...] rris acid, 5- 07-30 bowel tablet by [facility] vitamin C, 00:00: 23:59 elimination mouth 250 mg 00 :00 due to daily for tablet intestinal 60 days ostomy magnesium 2021- No Altered 800mg Q.5D Take 2 H arris oxide 5- 07-30 bowel tablets by [facility] (MAG-OX) 00:00: 23:59 elimination mouth 2 400 mg 00 :00 due to times (241.3 mg intestinal daily for magnesium) ostomy 60 days tablet multivitami 2021- No Altered 1{tbl} QD Take 1 [facility] n with 01-21-30 bowel tablet by [facility] folic acid 00:00: 23:59 elimination mouth (THERA) 400 00 :00 due to daily for mcg tablet intestinal 60 days ostomy ascorbic 2021- No Altered 250mg QD Take 1 [facility] rris acid, -23 03-30 bowel tablet by [facility] vitamin C, 00:00: 23:59 elimination mouth 250 [...] n with -23 03-30 bowel tablet by [facility] folic acid 00:00: 23:59 elimination mouth (THERA) 400 00 :00 due to daily for mcg tablet intestinal 60 days ostomy ascorbic 2021- No Altered 250mg QD Take 1 [facility]ris acid, - 07-30 bowel tablet by [facility] vitamin C, 00:00: 23:59 elimination mouth 250 mg 00 :00 due to daily for tablet intestinal 60 days ostomy magnesium 2021- No Altered 800mg Q.5D Take 2 H arris oxide 5-31 07-30 bowel tablets by [facility] (MAG-OX) 00:00: 23:59 elimination mouth 2 400 [...] rris acid, 5-31 07-30 bowel tablet by [facility] vitamin C, 00:00: 23:59 elimination mouth 250 [...] 250mg QD Take 1 [facility] rris acid, - 07-30 bowel tablet by [facility] vitamin C, 00:00: 23:59 elimination mouth 250 [...] with 01-21 bowel tablet by [facility] folic acid 00:00: 23:59 elimination mouth (THERA) 400 00 :00 due to daily for mcg tablet intestinal 60 days ostomy ascorbic 2021- No Altered 250mg QD Take 1 [facility] rris acid, 01-21 bowel tablet by [facility] vitamin C, 00:00: 23:59 elimination mouth 250 mg 00 :00 due to daily for tablet intestinal 60 days ostomy magnesium 2021- No Altered 800mg Q.5D Take 2 H arris oxide 01-21 bowel tablets by [facility] (MAG-OX) 00:00: 23:59 elimination mouth 2 400 mg 00 :00 due to times (241.3 mg intestinal daily for magnesium) ostomy 60 days tablet multivitami 2021- No Altered 1{tbl} QD Take 1 [facility] n with 01-21 bowel tablet by [facility] folic acid 00:00: 23:59 elimination mouth (THERA) [...] days ostomy loperamide 2021- No Altered 4mg Q.71098137 Take 2 [facility] (IMODIUM) 2 01-21- bowel [id number] capsules Health mg capsule 00:00: 00:00 elimination [...] days ostomy loperamide 2021- No Altered 4mg Q.58822052 Take 2 [facility] (IMODIUM) 2 01-21-30 bowel [id number] capsules Health mg capsule 00:00: 00:00 elimination [...] days ostomy loperamide 2021- No Altered 4mg Q.01041359 Take 2 [facility] (IMODIUM) 2 01-21- bowel [id number] capsules Health mg capsule 00:00: 00:00 elimination [...] days ostomy loperamide 2021- No Altered 4mg Q.89489386 Take 2 [facility] (IMODIUM) 2 01-21-30 bowel [id number] capsules Health mg capsule 00:00: 00:00 elimination [...] days ostomy loperamide 2021- No Altered 4mg Q.[id number] Take 2 [facility] (IMODIUM) 2 01-21-30 bowel [id number] capsules Health mg capsule 00:00: 00:00 elimination [...] days ostomy loperamide 2021- No Altered 4mg Q.21189008 Take 2 [facility] (IMODIUM) 2 01-21-30 bowel [id number] capsules Health mg capsule 00:00: 00:00 elimination [...] days ostomy loperamide 2021- No Altered 4mg Q.44440031 Take 2 [facility] (IMODIUM) 2 01-21-30 bowel [id number] capsules Health mg capsule 00:00: 00:00 elimination [...] days ostomy loperamide 2021- No Altered 4mg Q.[id number] Take 2 [facility] (IMODIUM) 2 01-21 bowel [id number] capsules Health mg capsule 00:00: 00:00 elimination [...] days ostomy loperamide 2021- No Altered 4mg Q.11708562 Take 2 [facility] (IMODIUM) 2 01-21-30 bowel [id number] capsules Health mg capsule 00:00: 00:00 elimination [...] days ostomy loperamide 2021- No Altered 4mg Q.13840445 Take 2 [facility] (IMODIUM) 2 01-21-30 bowel [id number] capsules Health mg capsule 00:00: 00:00 elimination [...] days ostomy loperamide 2021- No Altered 4mg Q.06656079 Take 2 [facility] (IMODIUM) 2 01-21- bowel [id number] capsules Health mg capsule 00:00: 00:00 elimination [...] days ostomy loperamide 2021- No Altered 4mg Q.82372069 Take 2 [facility] (IMODIUM) 2 01-21-30 bowel [id number] capsules Health mg capsule 00:00: 00:00 elimination [...] days ostomy loperamide 2021- No Altered 4mg Q.56385566 Take 2 [facility] (IMODIUM) 2 01-21-30 bowel [id number] capsules Health mg capsule 00:00: 00:00 elimination [...] days ostomy loperamide 2021- No Altered 4mg Q.90924478 Take 2 [facility] (IMODIUM) 2 01-21-30 bowel [id number] capsules Health mg capsule 00:00: 00:00 elimination [...] days ostomy loperamide 2021- No Altered 4mg Q.[id number] Take 2 [facility] (IMODIUM) 2 01-21 bowel [id number] capsules Health mg capsule 00:00: 00:00 elimination [...] days ostomy loperamide 2021- No Altered 4mg Q.53371485 Take 2 [facility] (IMODIUM) 2 01-21 bowel [id number] capsules Health mg capsule 00:00: 00:00 elimination [...] days ostomy loperamide 2021- No Altered 4mg Q.30805249 Take 2 [facility] (IMODIUM) 2 01-21 bowel [id number] capsules Health mg capsule 00:00: 00:00 elimination [...] days ostomy loperamide 2021- No Altered 4mg Q.56718297 Take 2 [facility] (IMODIUM) 2 01-21 bowel [id number] capsules Health mg capsule 00:00: 00:00 elimination [...] days ostomy loperamide 2021- No Altered 4mg Q.60566193 Take 2 [facility] (IMODIUM) 2 01-21 bowel [id number] capsules Health mg capsule 00:00: 00:00 elimination 3D by mouth 3 00 :00 due to times intestinal daily ostomy (before meals) for 30 days psyllium 2021- No Altered 1{packe Q.35051162 Take 1 [facility] (METAMUCIL) 01-21 bowel t} [id number] Packet by [facility] 6 gram PwPk 00:00: 00:00 elimination 3D mouth 3 00 :00 due to times intestinal daily ostomy (before meals) for 90 days psyllium 2021- No Altered 1{packe Q.18843217 Take 1 [facility] (METAMUCIL) 01-21 bowel t} [id number] Packet by [facility] 6 gram PwPk 00:00: 00:00 elimination 3D mouth 3 00 :00 due to times intestinal daily ostomy (before meals) for 90 days psyllium 2021- No Altered 1{packe Q.54139178 Take 1 [facility] (METAMUCIL) 01-21 bowel t} [id number] Packet by [facility] 6 gram PwPk 00:00: 00:00 elimination 3D mouth 3 00 :00 due to times intestinal daily ostomy (before meals) for 90 days psyllium 2021- No Altered 1{packe Q.85696314 Take 1 [facility] (METAMUCIL) 01-21 bowel t} [id number] Packet by [facility] 6 gram PwPk 00:00: 00:00 elimination 3D mouth 3 00 :00 due to times intestinal daily ostomy (before meals) for 90 days psyllium 2021- No Altered 1{packe Q.22658754 Take 1 [facility] (METAMUCIL) 01-21 bowel t} [id number] Packet by [facility] 6 gram PwPk 00:00: 00:00 elimination 3D mouth 3 00 :00 due to times intestinal daily ostomy (before meals) for 90 days psyllium 2021- No Altered 1{packe Q.40597018 Take 1 [facility] (METAMUCIL) 01-21 bowel t} [id number] Packet by [facility] 6 gram PwPk 00:00: 00:00 elimination 3D mouth 3 00 :00 due to times intestinal daily ostomy (before meals) for 90 days psyllium 2021- No Altered 1{packe Q.77751512 Take 1 [facility] (METAMUCIL) 01-21 bowel t} [id number] Packet by [facility] 6 gram PwPk 00:00: 00:00 elimination 3D mouth 3 00 :00 due to times intestinal daily ostomy (before meals) for 90 days psyllium 2021- No Altered 1{packe Q.19520681 Take 1 [facility] (METAMUCIL) 01-21 bowel t} [id number] Packet by [facility] 6 gram PwPk 00:00: 00:00 elimination 3D mouth 3 00 :00 due to times intestinal daily ostomy (before meals) for 90 days psyllium 2021- No Altered 1{packe Q.19213905 Take 1 [facility] (METAMUCIL) 01-21 bowel t} [id number] Packet by [facility] 6 gram PwPk 00:00: 00:00 elimination 3D mouth 3 00 :00 due to times intestinal daily ostomy (before meals) for 90 days psyllium 2021- No Altered 1{packe Q.34777071 Take 1 [facility] (METAMUCIL) 01-21 bowel t} [id number] Packet by [facility] 6 gram PwPk 00:00: 00:00 elimination 3D mouth 3 00 :00 due to times intestinal daily ostomy (before meals) for 90 days psyllium 2021- No Altered 1{packe Q.28958175 Take 1 [facility] (METAMUCIL) 01-21 bowel t} [id number] Packet by [facility] 6 gram PwPk 00:00: 00:00 elimination 3D mouth 3 00 :00 due to times intestinal daily ostomy (before meals) for 90 days psyllium 2021- No Altered 1{packe Q.00591914 Take 1 [facility] (METAMUCIL) 01-21 bowel t} [id number] Packet by [facility] 6 gram PwPk 00:00: 00:00 elimination 3D mouth 3 00 :00 due to times intestinal daily ostomy (before meals) for 90 days psyllium 2021- No Altered 1{packe Q.11329304 Take 1 [facility] (METAMUCIL) 01-21 bowel t} [id number] Packet by [facility] 6 gram PwPk 00:00: 00:00 elimination 3D mouth 3 00 :00 due to times intestinal daily ostomy (before meals) for 90 days psyllium 2021- No Altered 1{packe Q.[id number] Take 1 [facility] (METAMUCIL) 01-21 bowel t} [id number] Packet by [facility] 6 gram PwPk 00:00: 00:00 elimination 3D mouth 3 00 :00 due to times intestinal daily ostomy (before meals) for 90 days psyllium 2021- No Altered 1{packe Q.50389113 Take 1 [facility] (METAMUCIL) 01-21 bowel t} [id number] Packet by [facility] 6 gram PwPk 00:00: 00:00 elimination 3D mouth 3 00 :00 due to times intestinal daily ostomy (before meals) for 90 days psyllium 2021- No Altered 1{packe Q.46128944 Take 1 [facility] (METAMUCIL) 01-21 bowel t} [id number] Packet by [facility] 6 gram PwPk 00:00: 00:00 elimination 3D mouth 3 00 :00 due to times intestinal daily ostomy (before meals) for 90 days psyllium 2021- No Altered 1{packe Q.79217262 Take 1 [facility] (METAMUCIL) 01-21 bowel t} [id number] Packet by [facility] 6 gram PwPk 00:00: 00:00 elimination 3D mouth 3 00 :00 due to times intestinal daily ostomy (before meals) for 90 days psyllium 2021- No Altered 1{packe Q.55346698 Take 1 [facility] (METAMUCIL) 01-21 bowel t} [id number] Packet by [facility] 6 gram PwPk 00:00: 00:00 elimination 3D mouth 3 00 :00 due to times intestinal daily ostomy (before meals) for 90 days psyllium 2021- No Altered 1{packe Q.83212316 Take 1 [facility] (METAMUCIL) 01-21 bowel t} [id number] Packet by [facility] 6 gram PwPk 00:00: 00:00 elimination 3D mouth 3 00 :00 due to times intestinal daily ostomy (before meals) for 90 days tamsulosin 2021- No Benign .4mg QD Take 1 Momin rris (FLOMAX) 01-12 prostatic capsule by [facility] 0.4 mg 00:00: 00:00 hyperplasia mouth capsule 00 :00 , daily. unspecified Start on whether 01/12/2022. lower urinary tract symptoms present tamsulosin 2021- No Benign .4mg QD Take 1 [facility] rris (FLOMAX) 01-12 prostatic capsule by [facility] 0.4 mg 00:00: 00:00 hyperplasia mouth capsule [...] Momin rris (FLOMAX) 01-12 prostatic capsule by [facility] 0.4 mg 00:00: 00:00 hyperplasia mouth capsule [...] Momin rris (FLOMAX) 01-12 prostatic capsule by [facility] 0.4 mg 00:00: 00:00 hyperplasia mouth capsule 00 :00 , daily. unspecified Start on whether 01/12/2022. lower urinary tract symptoms present tamsulosin 2021- No Benign .4mg QD Take 1 Momin rris (FLOMAX) 01-12 prostatic capsule by [facility] 0.4 mg 00:00: 00:00 hyperplasia mouth capsule 00 :00 , daily. unspecified Start on whether 01/12/2022. lower urinary tract symptoms present tamsulosin 2021- No Benign .4mg QD Take 1 M[facility] rris (FLOMAX) 01-12 prostatic capsule by [facility] 0.4 mg 00:00: 00:00 hyperplasia mouth capsule [...] 2021- No Disorder of 2mg Take 1 [facility] (IMODIUM) 2 5- 05-21 stoma capsule by [facility] mg capsule 00:00: 00:00 mouth once 00 :00 for 1 dose loperamide 2021- No Disorder of 2mg Take 1 [facility] (IMODIUM) 2 5-21 05-21 stoma capsule by [facility] mg capsule 00:00: 00:00 mouth once 00 :00 for 1 dose loperamide 2022-0 2022- No Disorder of 2mg Take 1 [facility] [...] (DAILY 04-14 abuse, in tablet by [facility] [employer]) 00:00: 00:00 remission mouth tablet 00 :00 [...] (DAILY 04-14 05-21 abuse, in tablet by [facility] VITES) 00:00: 00:00 remission mouth tablet 00 :00 daily. thiamine, 2021- No Alcohol 100mg QD Take 1 H arris B-1, 100 mg 04-14 05-21 abuse, in tablet by [facility] tablet 00:00: 00:00 remission mouth 00 :00 daily. multivitami 2021- No Alcohol 1{tbl} QD Take 1 [facility] n (DAILY 04-14-21 abuse, in tablet by [facility]) 00:00: 00:00 remission mouth tablet 00 :00 daily. thiamine, 2021- No Alcohol 100mg QD Take 1 H arris B-1, 100 mg 04-14-21 abuse, in tablet by [facility] tablet 00:00: 00:00 remission mouth 00 :00 daily. multivitami 2021- No Alcohol 1{tbl} QD Take 1 [facility] n (DAILY 04-14-21 abuse, in tablet by [facility] [employer]) 00:00: 00:00 remission mouth tablet 00 :00 daily. thiamine, 2021- No Alcohol 100mg QD Take 1 H arris B-1, 100 mg 04-14-21 abuse, in tablet by [facility] tablet 00:00: 00:00 remission mouth 00 :00 daily. multivitami 2021- No Alcohol 1{tbl} QD Take 1 [facility] n (DAILY 04-14 05-21 abuse, in tablet by [facility] VITES) 00:00: 00:00 remission mouth tablet 00 [...] (DAILY 8- 05-21 abuse, in tablet by [facility] [employer]) 00:00: 00:00 remission mouth tablet 00 :00 [...] (DAILY 8 05-21 abuse, in tablet by [facility] [employer]) 00:00: 00:00 remission mouth tablet 00 :00 daily. 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 multivitami 2021- No Alcohol 1{tbl} QD Take 1 [facility] n (DAILY 8 05-21 abuse, in tablet by [facility] [employer]) 00:00: 00:00 remission mouth tablet 00 :00 daily. thiamine, 2021- No Alcohol 100mg QD Take 1 H arris B-1, 100 mg 04-14 05-21 abuse, in tablet by [facility] tablet 00:00: 00:00 remission mouth 00 :00 daily. multivitami 2021- No Alcohol 1{tbl} QD Take 1 [facility] n (DAILY 8 05-21 abuse, in tablet by [facility] VITES) 00:00: 00:00 remission mouth tablet 00 [...] Immunization Date Status Commen Source Name Name [facility] [...] Completed [facility] 00:00:00 PPD 2017-04-14 Completed [facility] 00:00:00 [facility] 2017-04-14 Completed [facility] 00:00:00 PPD 2017-04-14 Completed [facility] 00:00:00 PPD 2017-04-14 Completed [facility] 00:00:00 [facility] 2017-04-14 Completed [facility] 00:00:00 Vital Signs Vital Name Observation Time Observation Value Comments Source HEIGHT 2022-03-06 12:05:00 185.4 cm WEIGHT 2022-03-06 12:05:00 65.772 kg HEIGHT 2022-03-06 12:05:00 185.4 cm WEIGHT 2022-03-06 12:05:00 65.772 kg HEIGHT 2022-03-06 12:05:00 185.4 cm WEIGHT 2022-03-06 12:05:00 65.772 kg Systolic blood 2022-03-13 15:33:00 94 mm[Hg] [facility] pressure Diastolic blood 2022-03-13 15:33:00 62 mm[facility]Hg[facility] 2022-03-13 15:33:00 109 /min [facility] Body temperature 2022-03-13 15:33:00 36.67 Tasia [facility] Respiratory rate 2022-03-13 15:33:00 20 /min [facility] Body height 2022-03-13 15:33:00 185.4 cm [facility] Body weight 2022-03-13 15:33:00 66.679 kg [facility] BMI 2022-03-13 15:33:00 19.39 kg/m2 [facility] Oxygen saturation in 2022-03-13 15:33:00 100 /min [facility] Arterial blood by Pulse oximetry Systolic blood 2022-03-09 11:00:00 107 mm[Hg] [facility] Diastolic blood 2022-03-09 11:00:00 66 mm[Hg] [facility] Heart rate 2022-03-09 11:00:00 58 /min [facility] Body temperature 2022-03-09 11:00:00 36.22 Tasia [facility] Respiratory rate 2022-03-09 11:00:00 16 /min [facility] Oxygen saturation in 2022-03-09 11:00:00 100 /min [facility] Arterial blood by Medical [facility] Pulse oximetry Body height 2022-03-06 12:05:00 185.4 cm [facility] Body weight 2022-03-06 12:05:00 65.772 kg [facility] BMI 2022-03-06 12:05:00 19.13 kg/m2 [facility] Procedures Procedure Date / Time Performing Clinician Source Performed BASIC METABOLIC PANEL 2022-03-07 05:51:00 Romie Kuo [facility] HEPATIC FUNCTION PANEL 2022-03-07 05:51:00 [facility] CBC W/PLT COUNT & AUTO 2022-03-07 05:51:00 Shiela [facility] CBC W/PLT COUNT & AUTO 2022-03-07 05:51:00 Shiela [facility] US RENAL COMPLETE 2022-03-06 18:23:00 ShielaRomie [facility] SARS-COV2/RT-PCR ([facility] & 2022-03-06 17:36:00 [facility] REF LABS) [facility] TSH/FREE T4 IF INDICATED 2022-03-06 14:18:00 Aryan Tello [facility] T4, FREE 2022-03-06 14:18:00 Aryan Tello [facility] ED ECG INTERPRETATION 2022-03-06 13:48:12 Aryan Tello [facility] XR CHEST 1 VIEW PORTABLE 2022-03-06 13:42:00 Aryan Tello [facility] / BEDSIDE [facility] B-TYPE NATRIURETIC FACTOR 2022-03-06 13:23:00 Aryan Tello [facility] (BNP) [facility] CBC W/PLT COUNT & AUTO 2022-03-06 13:23:00 Aryan Tello [facility] DIFFERENTIAL [facility] COMPREHENSIVE METABOLIC 2022-03-06 13:23:00 Aryan Tello [facility] PANEL [facility] HIGH SENSITIVITY TROPONIN 2022-03-06 13:23:00 Aryan Tello I [facility] I [facility] MAGNESIUM 2022-03-06 13:23:00 [facility] 2022-03-06 13:23:[address] [facility] LACTIC ACID, VENOUS 2022-03-06 13:23:00 Aryan Tello [facility] CREATINE KINASE (CK) 2022-03-06 13:23:[address] [facility] CBC W/PLT COUNT & AUTO 2022-03-06 13:23:00 Aryan Tello [facility] DIFFERENTIAL [facility] ECG 12-LEAD 2022-03-06 12:12:56 Unknown, Hl7 [facility] ECG 12-LEAD 2022-03-06 12:12:56 Unknown, Hl7 [facility] ECG 12-LEAD 2022-03-06 12:12:56 Unknown, Hl7 [facility] EKG-SCANNED 2022-03-06 00:00:[address] [facility] [...] W/REFLEX TO 2022-02-19 00:34:00 Kobe Blake [facility] URINE CULTURE URINALYSIS 2022-02-19 00:34:00 Chadd Palacios URINE CULTURE COLLECTION 2022-02-19 00:34:00 Philip Chadd [facility] KIT SARS-COV-2, FLU A/B, RSV 2022-02-18 19:00:00 Chadd Palacios [facility] CORONAVIRUS, COVID-19, 2022-02-18 19:00:00 Philip Chadd [facility] OLENA XRAY CHEST 1 VIEW 2022-02-18 15:23:00 Roz Scales [facility] CONSULT CLINICAL CASE 2022-02-18 14:50:50 Roz Scales [facility] (RN/SW) CBC/DIFF 2022-02-18 14:16:00 [facility]IC MET[facility]OLIC PANEL 2022-02-18 14:16:00 Albab [facility] MAGNESIUM 2022-02-18 14:16:[address] [facility] 2022-02-18 14:16:[address] [facility] CREATINE KINASE (CK) 2022-02-18 14:16:00 [facility] CBC 2022-02-18 14:16:00 [facility] BASIC METABOLIC PANEL 2022-02-11 03:34:00 Rosas Islas MAGNESIUM 2022-02-11 03:34:00 CucTeresa [facility] PHOSPHORUS 2022-02-11 03:34:00 CucTeresa [facility] CBC (WITHOUT 2022-02-11 03:34:00 CuchaTeresa de la garza [facility] DIFFERENTIAL) CBC/DIFF 2022-02-10 03:39:00 [facility]han [facility] BASIC METABOLIC PANEL 2022-02-10 03:39:00 Antonieta [facility] CBC 2022-02-10 03:39:00 [facility] 2022-02-10 03:39:00 C[facility]apinTeresa [facility] HORMONE (TSH) FREE T4 2022-02-10 03:39:00 JamilahrenofredericTeresa [facility] CBC/DIFF 2022-02-09 04:38:00 [facility] BASIC METABOLIC PANEL 2022-02-09 04:38:00 Rosas Islas CBC 2022-02-09 04:38:00 [facility] CORTISOL, TOTAL 2022-02-08 11:37:00 [facility] GLUCOSE POC 2022-02-08 08:07:[address] [facility] h CBC (WITHOUT 2022-02-08 04:00:00 Mari Meier [facility] DIFFER[facility]) COMPREHENSIVE METABOLIC 2022-02-08 04:00:00 Mari Meier [facility] PANEL PHOSPHORUS 2022-02-08 04:00:00 Mari Meier ealth MAGNESIUM 2022-02-08 04:00:00 Mari Meier [facility] PT/INR 2022-02-08 04:00:00 Mari Meier [facility] URINALYSIS W/REFLEX TO 2022-02-07 18:06:00 Areli Arciniega [facility] URINE CULTURE URINALYSIS 2022-02-07 18:06:00 Areli Arciniega [facility] URINE CULTURE COLLECTION 2022-02-07 18:06:00 Areli Arciniega [facility] KIT ELECTROLYTES, URINE 2022-02-07 18:06:00 Jyoti Carrillo [facility] OSMOLALITY, URINE 2022-02-07 18:06:00 [facility] SARS-COV-2, FLU A/B, RSV 2022-02-07 18:05:[address] [facility] CORONAVIRUS, COVID-19, 2022-02-07 18:05:00 Jyoti Carrillo [facility] OLENA NUTRITION CONSULT 2022-02-07 17:43:36 Mari Meier [facility] ASSESSMENT BASIC METABOLIC PANEL 2022-02-07 17:18:00 Jyoti Carrillo [facility] LACTIC ACID 2022-02-07 14:04:00 Areli Arciniega [facility] CBC/DIFF 2022-02-07 14:03:00 Areli Arciniega [facility] BASIC METABOLIC PANEL 2022-02-07 14:03:00 Areli Arciniega [facility] LIVER PROFILE 2022-02-07 14:03:00 Areli Arciniega [facility] LIPASE 2022-02-07 14:03:00 Areli Arciniega [facility] MAGNESIUM 2022-02-07 14:03:00 Areli Arciniega [facility] PHOSPHORUS 2022-02-07 14:03:00 Areli Arciniega [facility] TROPONIN I 2022-02-07 14:03:00 Areli Arciniega [facility] CBC 2022-02-07 14:03:00 Areli Arciniega [facility] 12 LEAD EKG 2022-01-21 15:46:10 Ori Goldberg [facility] CBC/DIFF 2022-01-21 04:11:00 LindseySteve [facility] MAGNESIUM 2022-01-21 04:11:00 LindseySteve P [facility] PHOSPHORUS 2022-01-21 04:11:00 Lindsey Steve P [facility] BASIC METABOLIC PANEL 2022-01-21 04:11:00 Ori Goldberg [facility] CBC 2022-01-21 04:11:00 LindseyNoeh P [facility] CBC/DIFF 2022-01-20 04:37:00 Lindsey Steve P [facility] MAGNESIUM 2022-01-20 04:37:00 Lindsey Steve P [facility] PHOSPHORUS 2022-01-20 04:37:00 Lindsey, Steve P [facility] BASIC METABOLIC PANEL 2022-01-20 04:37:00 LindseySteve [facility] CBC 2022-01-20 04:37:00 Lindsey Steve P [facility] MAGNESIUM 2022-01-19 18:09:00 Lindsey Steve P [facility] PHOSPHORUS 2022-01-19 18:09:00 LindseyNoe herrerah P [facility] BASIC METABOLIC PANEL 2022-01-19 18:09:00 Steve Lucas [facility] CORTISOL, TOTAL 2022-01-19 18:09:00 Karin Bassett [facility] URINALYSIS W/REFLEX TO 2022-01-19 17:22:00 LindseySteve P [facility] URINE CULTURE URINALYSIS 2022-01-19 17:22:00 LindseyNoeh Esther [facility] URINE CULTURE COLLECTION 2022-01-19 17:22:00 Noe Lucasgera Santana [facility] KIT COMPUTED TOMOGRAPHY 2022-01-19 13:29[facility]00 [facility] WITHOUT CONTRAST CBC/DIFF 2022-01-19 04:44:00 Noe Lucash Esther [facility] CBC 2022-01-19 04:44:00 Noe Lucash Esther [facility] DIFFERENTIAL, MANUAL (NO 2022-01-19 04:44:00 LindseySteve Esther [facility] Health MORPHOLOGY)-WAM BASIC METABOLIC PANEL 2022-01-18 17:15:00 Noe Lucash P [facility] CBC/DIFF 2022-01-18 04:46:00 Noe Lucash Esther [facility] MAGNESIUM 2022-01-18 04:46:00 LindseyNoeh Esther [facility] PHOSPHORUS 2022-01-18 04:46:00 [facility] MET[facility]OLIC PANEL 2022-01-18 04:46:00 Ori Goldberg [facility] CBC 2022-01-18 04:46:00 [facility] HIV AG/AB COMBO ROUTINE 2022-01-18 04:46:00 Karin Bassett [facility] SCREENING ENTERIC PATHOGENS NUCLEIC 2022-01-18 03:25:00 Karin Bassett [facility] ACID TEST BASIC METABOLIC PANEL 2022-01-18 00:29:00 Ori Goldberg [facility] BASIC METABOLIC PANEL 2022-01-17 17:07:00 [facility] BASIC METABOLIC PANEL 2022-01-17 13:15:00 LindseySteve [facility] CALPROTECTIN FECAL 2022-01-17 12:38:00 Steve Lucas FECAL LEUKOCYTES 2022-01-17 12:38:00 Steve Lucas Hea lt T-TRANSGLUTAMINASE IGA 2022-01-17 12:22:00 Steve [facility] BASIC METABOLIC PANEL 2022-01-17 08:51:00 [facility] BASIC METABOLIC PANEL 2022-01-17 04:47:00 [facility]Steve [facility] CBC/DIFF 2022-01-17 04:47:00 Steve Lucas [facility] MAGNESIUM 2022-01-17 04:47:00 Steve Lucas [facility] PHOSPHORUS 2022-01-17 04:47:00 Steve Lucas [facility] CBC 2022-01-17 04:47:00 Steve Lucas [facility] BASIC METABOLIC PANEL 2022-01-17 00:08:00 [facility] 12 LEAD EKG 2022-01-16 21:23:25 Steve Lucas [facility] BASIC METABOLIC PANEL 2022-01-16 21:08:00 [...] SODIUM, URINE, RANDOM 2022-01-16 16:00:00 Kevin Nieves [facility] CREATININE, URINE, RANDOM 2022-01-16 16:00:00 Kevin Nieves [facility] OSMOLALITY, URINE 2022-01-16 16:00:00 Kevin Nieves [facility] SARS-COV-2, FLU A/B, RSV 2022-01-16 15:20:00 Kevin Nieves [facility] CORONAVIRUS, COVID-19, 2022-01-16 15:20:00 [facility] FOLIC ACID 2022-01-16 14:13:00 Kevin Nieves [facility] ealt CREATININE POC 2022-01-16 13:55:00 VeronicaRaymon [facility] BMP POC 2022-01-16 13:46:00 [facility] CBC/DIFF 2022-01-16 12:12:00 [facility] CBC 2022-01-16 12:12:00 [facility] BASIC METABOLIC PANEL 2022-01-16 12:11:00 Sadiq Vargas [facility] MAGNESIUM 2022-01-16 12:11:00 Sadiq Vargas [facility] VITAMIN B12 2022-01-16 12:11:00 Kevin Nieves [facility] OSMOLALITY,SERUM 2022-01-16 12:11:00 Kevin Nieves [facility] INFUSION PUMP 2022-01-11 09:21:05 Helene Ring [facility] GLUCOSE POC 2022-01-11 07:54:00 Helene Ring [facility] BASIC METABOLIC PANEL 2022-01-11 04:07:00 Merissa Richards [facility] MAGNESIUM 2022-01-11 04:07:00 [facility] PHOSPHORUS 2022-01-11 04:07:00 [facility] CBC/DIFF 2022-01-11 04:06:00 [facility] IRON PROFILE 2022-01-11 04:06:00 Mer[facility] FOLIC ACID 2022-01-11 04:06:00 Mer[facility] CBC 2022-01-11 04:06:00 [facility] GLUCOSE POC 2022-01-10 18:16:00 Helene Ring [facility] URINALYSIS 2022-01-10 16:10:00 Merissa Richards [facility] URINALYSIS 2022-01-10 16:10:00 Merissa Richards [facility] SARS-COV-2, FLU A/B, RSV 2022-01-10 15:54:00 Merissa Richards [facility] CORONAVIRUS, COVID-19, 2022-01-10 15:54:00 Antoine Hester [facility]NA BASIC METABOLIC PANEL 2022-01-10 15:54:00 Merissa Richards [facility] VITAMIN B12 2022-01-10 15:54:[address] [facility] VBG POC 2022-01-10 11:14:00 [facility] CBC/DIFF 2022-01-10 11:13:[address] [facility] BASIC METABOLIC PANEL 2022-01-10 11:13:00 Antoine Hester [facility] LACTIC ACID 2022-01-10 11:13:[address] [facility] CBC 2022-01-10 11:13:00 Antoine Hester [facility] LIVER PROFILE 2022-01-10 11:13:00 Merissa Richards [facility] CK, TOTAL 2022-01-10 11:13:00 Fercho Merissa Felicita [facility] FERRITIN 2022-01-10 11:13:00 Merissa Richards [facility] CREATINE KINASE MB (CKMB) 2022-01-10 11:13:00 Merissa Richards [facility] XRAY CHEST 2 VIEWS 2022-01-08 21:50:14 Tanja Sebastian [facility] CBC/DIFF 2022-01-08 21:27:00 Tanja Sebastian formerly [facility] BASIC METABOLIC PANEL 2022-01-08 21:27:00 Tanja Sebastian [facility] LIVER PROFILE 2022-01-08 21:27:00 Tanja Sebastian formerly [facility] CK, TOTAL 2022-01-08 21:27:00 Tanja Sebastian [facility] TROPONIN I 2022-01-08 21:27:00 Tanja Sebastian [facility] CBC 2022-01-08 21:27:00 Tanja Sebastian [facility] CREATINE KINASE MB (CKMB) 2022-01-08 21:27:00 Tanja Sebastian [place] [id number] LEAD EKG 2022-01-08 20:59:56 Tanja Sebastian [facility] [id number] 2020-01-09 00:00:00 [facility]01 [facility] Plan of Care Planned Activity Planned Date Details Comments Source Future Scheduled 2029-03-23 Screening for malignant [facility] Test 00:00:00 neoplasm of colon [facility] (procedure) [code = 463948856] Future Scheduled 2029-03-23 Screening for malignant [facility] Test 00:00:00 neoplasm of colon [facility] (procedure) [code = 380270710] Future Scheduled 2029-03-23 Screening for malignant [facility] Test 00:00:00 neoplasm of colon [facility] (procedure) [code = 655895033] Future Scheduled 2029-03-23 Screening for malignant [facility] Test 00:00:00 neoplasm of colon [facility] (procedure) [code = 444358676] Future Scheduled 2029-03-23 Screening for malignant [facility] Test 00:00:00 neoplasm of colon [facility] (procedure) [code = 981702893] Future Scheduled 2029-03-23 Screening for malignant [facility] Test 00:00:00 neoplasm of colon [facility] (procedure) [code = 688675486] Future Scheduled 2029-03-23 Screening for malignant [facility] Test 00:00:00 neoplasm of colon [facility] (procedure) [code = 845888330] Future Scheduled 2029-03-23 Screening for malignant [facility] Test 00:00:00 neoplasm of colon [facility] (procedure) [code = 077123741] Future Scheduled 2029-03-23 Screening for malignant [facility] Test 00:00:00 neoplasm of colon [facility] (procedure) [code = 353771234] Future Scheduled 2029-03-23 Screening for malignant [facility] Test 00:00:00 neoplasm of colon [facility] (procedure) [code = 358128809] Future Scheduled 2029-03-23 Screening for malignant [facility] Test 00:00:00 neoplasm of colon [facility] (procedure) [code = 030108180] Future Scheduled 2029-03-23 Screening for malignant [facility] Test 00:00:00 neoplasm of colon [facility] (procedure) [code = 394284691] Future Scheduled 2029-03-23 Screening for malignant [facility] Test 00:00:00 neoplasm of colon [facility] (procedure) [code = 702544347] Future Scheduled 2029-03-23 Screening for malignant [facility] Test 00:00:00 neoplasm of colon [facility] (procedure) [code = 824715285] Future Scheduled 2029-03-23 Screening for malignant [facility] Test 00:00:00 neoplasm of colon [facility] (procedure) [code = 413488598] Future Scheduled 2029-03-23 Screening for malignant [facility] Test 00:00:00 neoplasm of colon [facility] (procedure) [code = 216450764] Future Scheduled 2029-03-23 Screening for malignant [facility] Test 00:00:00 neoplasm of colon [facility] (procedure) [code = 026748537] Future Scheduled 2029-03-23 Screening for malignant [facility] Test 00:00:00 neoplasm of colon [facility] (procedure) [code = 921931228] Future Scheduled 2029-03-23 Screening for malignant [facility] Test 00:00:00 neoplasm of colon [facility] (procedure) [code = 311322491] Future Scheduled 2029-03-23 Screening for malignant [facility] Test 00:00:00 neoplasm of colon [facility] (procedure) [code = 892359430] Future Scheduled 2029-03-23 Screening for malignant [facility] Test 00:00:00 neoplasm of colon [facility] (procedure) [code = 601908911] Future Scheduled 2029-03-23 Screening for malignant [facility] Test 00:00:00 neoplasm of colon [facility] (procedure) [code = 902669907] Future Scheduled 2029-03-23 Screening for malignant [facility] 00:00:00 neoplasm of colon [facility] (procedure) [code = 104428603] Future Scheduled 2029-03-23 Screening for malignant [facility] 00:00:00 neoplasm of colon [facility] (procedure) [code = 610021552] Future Scheduled 2029-03-23 Screening for malignant [facility] 00:00:00 neoplasm of colon [facility] (procedure) [code = 219134827] Future Scheduled 2029-03-23 Screening for malignant [facility] 00:00:00 neoplasm of colon [facility] (procedure) [code = 851164817] Future Scheduled 2029-03-23 Screening for malignant [facility] 00:00:00 neoplasm of colon [facility] (procedure) [code = 808824110] Future Scheduled 2029-03-23 Screening for malignant [facility] 00:00:00 neoplasm of colon [facility] (procedure) [code = 914992600] Future Scheduled 2029-03-23 Screening for malignant [facility] 00:00:00 neoplasm of colon [facility] (procedure) [code = 422289155] Future Scheduled 2029-03-23 Screening for malignant [facility] 00:00:00 neoplasm of colon [facility] (procedure) [code = 093066553] Future Scheduled 2029-03-23 Screening for malignant [facility] 00:00:00 neoplasm of colon [facility] (procedure) [code = 072520474] Future Scheduled 2029-03-23 Screening for malignant [facility] 00:00:00 neoplasm of colon [facility] (procedure) [code = 635325984] Future Scheduled 2029-03-23 Screening for malignant [facility] 00:00:00 neoplasm of colon [facility] (procedure) [code = 287581064] Future Scheduled 2029-03-23 Screening for malignant [facility] 00:00:00 neoplasm of colon [facility] (procedure) [code = 019218022] Future Scheduled 2029-03-23 Screening for malignant [facility] 00:00:00 neoplasm of colon [facility] (procedure) [code = 732017465] Future Scheduled 2029-03-23 Screening for malignant [facility] 00:00:00 neoplasm of colon [facility] (procedure) [code = 048915659] Future Scheduled 2029-03-23 Screening for malignant [facility] 00:00:00 neoplasm of colon [facility] (procedure) [code = 696911772] Future Scheduled 2029-03-23 Screening for malignant [facility] 00:00:00 neoplasm of colon [facility] (procedure) [code = 802686191] Future Scheduled 2029-03-23 Screening for malignant [facility] 00:00:00 neoplasm of colon [facility] (procedure) [code = 719652084] Future Scheduled 2029-03-23 Screening for malignant [facility] 00:00:00 neoplasm of colon [facility] (procedure) [code = 755877504] Future Scheduled 2029-03-23 Screening for malignant [facility] 00:00:00 neoplasm of colon [facility] (procedure) [code = 853518420] Future Scheduled 2022-08-[address] [...] 00:00:00 neoplasm of colon (procedure) [code = 005108593] Future Scheduled 2020-02-14 Screening [facility] 00:00:00 neoplasm of colon (procedure) [code = 176163221] Future Scheduled 2020-02-14 Screening for malignant [facility] 00:00:00 neoplasm of colon (procedure) [code = 412983353] Future Scheduled 2020-02-14 Screening for malignant [facility] 00:00:00 neoplasm of colon (procedure) [code = 452027170] Future Scheduled 2020-02-14 Screening for malignant [facility] 00:00:00 neoplasm of colon (procedure) [code = 632760130] Future Scheduled 2020-02-14 Screening for malignant [facility] 00:00:00 neoplasm of colon (procedure) [code = 298440080] Future Scheduled 2020-02-14 Screening for malignant [facility] 00:00:00 neoplasm of colon (procedure) [code = 458161035] Future Scheduled 2020-02-14 Screening for malignant [facility] 00:00:00 neoplasm of colon (procedure) [code = 904477297] Future Scheduled 2020-02-14 Screening for malignant [facility] 00:00:00 neoplasm of colon (procedure) [code = 433797150] Future Scheduled 2020-02-14 Screening for malignant [facility] 00:00:00 neoplasm of colon (procedure) [code = 410985300] Future Scheduled 2020-02-14 Screening for malignant [facility] 00:00:00 neoplasm of colon (procedure) [code = 734538484] Future Scheduled 2020-02-14 Screening for malignant [facility] 00:00:00 neoplasm of colon (procedure) [code = 175651370] Future Scheduled 2020-02-14 Screening for malignant [facility] 00:00:00 neoplasm of colon (procedure) [code = 072201984] Future Scheduled 2020-02-14 Screening for malignant [facility] 00:00:00 neoplasm of colon (procedure) [code = 603543768] Future Scheduled 2020-02-14 Screening for malignant [facility] 00:00:00 neoplasm of colon (procedure) [code = 385425804] Future Scheduled 2020-02-14 Screening for malignant [facility] 00:00:00 neoplasm of colon (procedure) [code = 443064224] Future Scheduled 2020-02-14 Screening for malignant [facility] 00:00:00 neoplasm of colon (procedure) [code = 811231251] Future Scheduled 2020-02-14 Screening for malignant [facility] 00:00:00 neoplasm of colon (procedure) [code = 009317225] Future Scheduled 2020-02-14 SHINGLES VACCINES ([address] [facility] 00:00:00 2) [code = [facility]INGLES [facility] VACCINES (1 of 2)] Future Scheduled 2020-02-14 Screening for malignant [facility] 00:00:00 neoplasm of colon (procedure) [code = 044427903] Future Scheduled 2020-02-14 SHINGLES VACCINES (1 of [...] [facility] 00:00:00 [code = 55364351] [facility] Ce [facility]ter Future Scheduled 2005 Lipid panel (procedure) [facility] 00:00:00 [code = 17245551] Medical Ce [facility]ter Future Scheduled 2005 Lipid panel (procedure) [facility] 00:00:00 [code = 56864509] Medical Ce nter Future Scheduled 2005 Lipid panel (procedure) [facility] 00:00:00 [code = 10408582] Medical Ce nter Future Scheduled 2005 Lipid panel (procedure) [facility] 00:00:00 [code = 22140947] Medical Ce nter Future Scheduled 2005 Lipid panel (procedure) [facility] 00:00:00 [code = 28903931] Medical Ce nter Future Scheduled 2005 Lipid panel (procedure) [facility] 00:00:00 [code = 78272934] Medical Ce nter Future Scheduled 2005 Lipid panel (procedure) [facility] 00:00:00 [code = 51662135] Medical Ce nter Future Scheduled 2005 Lipid panel (procedure) [facility] 00:00:00 [code = [id number]] Medical Ce nter Future Scheduled 2005 Lipid panel (procedure) [facility] 00:00:00 [code = 36247109] Medical Ce nter Future Scheduled 2005 Lipid panel (procedure) [facility] 00:00:00 [code = 19818074] Medical Ce nter Future Scheduled 2005 Lipid panel (procedure) [facility] 00:00:00 [code = 61883769] Medical Ce nter Future Scheduled 2005 Lipid panel (procedure) [facility] 00:00:00 [code = 05947312] Medical Ce nter Future Scheduled 2005 Lipid panel (procedure) [facility] 00:00:00 [code = 16889446] Medical Ce nter Future Scheduled 2005 Lipid panel (procedure) [facility] 00:00:00 [code = 42217317] Medical Ce nter Future Scheduled 2005 Lipid panel (procedure) [facility] 00:00:00 [code = 70333619] Medical Ce nter Future Scheduled 2005 Lipid panel (procedure) [facility] 00:00:00 [code = 23762903] Medical Ce nter Future Scheduled 2005 Lipid panel (procedure) [facility] 00:00:00 [code = 27652148] Medical Ce nter Future Scheduled 2005 Lipid panel (procedure) [facility] 00:00:00 [code = 67217656] Medical Ce nter Future Scheduled 2005 Lipid panel (procedure) [facility] 00:00:00 [code = 90501444] Medical Ce nter Future Scheduled 2005 Lipid panel (procedure) [facility] 00:00:00 [code = 52444008] Medical Ce nter Future Scheduled 1989 DTAP/TDAP/TD [...] colon Medical Ce nter (procedure) [code = 314148800] Future Scheduled 1970 Screening for malignant [facility] 00:00:00 neoplasm of colon Medical Ce nter (procedure) [code = 786750797] Future Scheduled 1970 Sigmoidoscopy [[facility]] [facility] Cent[facility] Future Scheduled 1970 Screening for malignant [facility] 00:00:00 neoplasm of colon Medical Ce nter (procedure) [code = 753907924] Future Scheduled 1970 Screening for malignant [facility] 00:00:00 neoplasm of colon Medical Ce nter (procedure) [code = 797615267] Future Scheduled 1970 Sigmoidoscopy [[facility] S[facility]oscopy] Medical Cente r Future Scheduled 1970 CT Colonography (combo) [facility] 00:00:00 [code = CT [facility] ([facility])] Future Scheduled 1970 Screening for malignant [facility] 00:00:00 neoplasm of colon Medical Ce nter (procedure) [code = 951870915] Future Scheduled 1970 Screening for malignant [facility] 00:00:00 neoplasm of colon Medical Ce nter (procedure) [code = 828046363] Future Scheduled 1970 Sigmoidoscopy [facility]] Medical Cente r Future Scheduled 1970 CT Colonography (combo) [facility] 00:00:00 [code = CT [facility] ([facility])] Future Scheduled 1970 Screening for malignant [facility] 00:00:00 neoplasm of colon Medical Ce nter (procedure) [code = 583808296] Future Scheduled 1970 Screening for malignant [facility] 00:00:00 neoplasm of colon Medical Ce nter (procedure) [code = 220920336] Future Scheduled 1970 Sigmoidoscopy [code [facility] S[facility]oscopy] Medical Cente r Future Scheduled 1970 CT Colonography (combo) [facility] 00:00:00 [code = CT [facility])] Future Scheduled 1970 Screening for malignant [facility] 00:00:00 neoplasm of colon Medical Ce nter (procedure) [code = 286098355] Future Scheduled 1970 Screening for malignant [facility] 00:00:00 neoplasm of colon Medical Ce nter (procedure) [code = 089555459] Future Scheduled 1970 Sigmoidoscopy [facility]oscopy] Medical Cente r Future Scheduled 1970 CT Colonography (combo) [facility] 00:00:00 [code = CT [facility] ([facility])] Future Scheduled 1970 Screening for malignant [facility] 00:00:00 neoplasm of colon Medical Ce nter (procedure) [code = 918473760] Future Scheduled 1970 Screening for malignant [facility] 00:00:00 neoplasm of colon Medical Ce nter (procedure) [code = 521741430] Future Scheduled 1970 Sigmoidoscopy [facility] S[facility]oidoscopy] Medical Angele r Future Scheduled 1970 CT Colonography (combo) [facility] 00:00:00 [code = CT [facility] ([facility])] Future Scheduled 1970 Screening for malignant [facility] 00:00:00 neoplasm of colon Medical Ce nter (procedure) [code = 729123206] Future Scheduled 1970 Screening for malignant [facility] 00:00:00 neoplasm of colon Medical Ce nter (procedure) [code = 598577545] Future Scheduled 1970 Sigmoidoscopy [[facility] Sigmoidoscopy] Medical Angele r Future Scheduled 1970 CT Colonography (combo) [facility] 00:00:00 [code = CT [facility] ([facility])] Future Scheduled 1970 Screening for malignant [facility] 00:00:00 neoplasm of colon Medical Ce nter (procedure) [code = 789320810] Future Scheduled 1970 Screening for malignant [facility] 00:00:00 neoplasm of colon Medical Ce nter (procedure) [code = 259189729] Future Scheduled 1970 Sigmoidoscopy [facility]oscopy] Medical Cente r Future Scheduled 1970 CT Colonography (combo) [facility] 00:00:00 [code = CT Colonography [facility] (combo)] Future Scheduled 1970 Screening for malignant [facility] 00:00:00 neoplasm of colon Medical Ce nter (procedure) [code = 986494438] Future Scheduled 1970 Screening for malignant [facility] 00:00:00 neoplasm of colon Medical Ce nter (procedure) [code = 956969753] Future Scheduled 1970 Sigmoidoscopy [facility]code [facility] S[facility]oidoscopy] Medical Cente r Future Scheduled 1970 CT Colonography (combo) [facility] 00:00:00 [code = CT Colonography [facility] (combo)] Future Scheduled 1970 Screening for malignant [facility] 00:00:00 neoplasm of colon Medical Ce nter (procedure) [code = 084438924] Future Scheduled 1970 Screening for malignant [facility] 00:00:00 neoplasm of colon Medical Ce nter (procedure) [code = 743131249] Future Scheduled 1970 Sigmoidoscopy [code = [facility] S[facility]oidoscopy] Medical Cente r Future Scheduled 1970 CT Colonography (combo) [facility] 00:00:00 [code = CT Colonography [facility] (combo)] Future Scheduled 1970 Screening for malignant [facility] 00:00:00 neoplasm of colon Medical Ce nter (procedure) [code = 892447276] Future Scheduled 1970 Screening for malignant [facility] 00:00:00 neoplasm of colon Medical Ce nter (procedure) [code = 095763245] Future Scheduled 1970 Sigmoidoscopy [code = [facility] Sigmoidoscopy] Medical Angele r Future Scheduled 1970 CT Colonography (combo) [facility] 00:00:00 [code = CT [facility])] Future Scheduled 1970 Screening for malignant [facility] 00:00:00 neoplasm of colon Medical Ce nter (procedure) [code = 735468541] Future Scheduled 1970 Screening for malignant [facility] 00:00:00 neoplasm of colon Medical Ce nter (procedure) [code = 525779944] Future Scheduled 1970 Sigmoidoscopy [code = [facility] 00:[facility] Sigmoidoscopy] Medical Angele r Future Scheduled 1970 CT Colonography (combo) [facility] 00:00:00 [code = CT [facility] ([facility])] Future Scheduled 1970 Screening for malignant [facility] 00:00:00 neoplasm of colon Medical Ce nter (procedure) [code = 664007265] Future Scheduled 1970 Screening for malignant [facility] 00:00:00 neoplasm of colon Medical Ce nter (procedure) [code = 987417489] Future Scheduled 1970 Sigmoidoscopy [code = [facility] 00:[facility] Sigmoidoscopy] Medical Angele r Future Scheduled 1970 CT Colonography (combo) [facility] 00:00:00 [code = CT [facility])] Future Scheduled 1970 Screening for malignant [facility] 00:00:00 neoplasm of colon Medical Ce nter (procedure) [code = 791853557] Future Scheduled 1970 Screening for malignant [facility] 00:00:00 neoplasm of colon Medical Ce nter (procedure) [code = 812762519] Future Scheduled 1970 Sigmoidoscopy [code = [facility] Sigmoidoscopy] Medical Angele r Future Scheduled 1970 CT Colonography (combo) [facility] 00:00:00 [code = CT [facility])] Future Scheduled 1970 Screening for malignant [facility] 00:00:00 neoplasm of colon Medical Ce nter (procedure) [code = 398699500] Future Scheduled 1970 Screening for malignant [facility] 00:00:00 neoplasm of colon Medical Ce nter (procedure) [code = 188829889] Future Scheduled 1970 Sigmoidoscopy [code = [facility] S[facility]oidoscopy] Medical Cente r Future Scheduled 1970 CT Colonography (combo) [facility] 00:00:00 [code = CT [facility])] Future Scheduled 1970 Screening for malignant [facility] 00:00:00 neoplasm of colon Medical Ce nter (procedure) [code = 410706443] Future Scheduled 1970 Screening for malignant [facility] 00:00:00 neoplasm of colon Medical Ce nter (procedure) [code = 841164821] Future Scheduled 1970 Sigmoidoscopy [code = [facility] S[facility]oidoscopy] Medical Cente r Future Scheduled 1970 CT Colonography (combo) [facility] 00:00:00 [code = CT [facility] ([facility])] Future Scheduled 1970 Screening for malignant [facility] 00:00:00 neoplasm of colon Medical Ce nter (procedure) [code = 401589082] Future Scheduled 1970 Screening for malignant [facility] 00:00:00 neoplasm of colon Medical Ce nter (procedure) [code = 668364893] Future Scheduled 1970 Sigmoidoscopy [code = [facility] Sigmoidoscopy] Medical Cente r Future Scheduled 1970 CT Colonography (combo) [facility] 00:00:00 [code = CT [facility] ([facility])] Future Scheduled 1970 Screening for malignant [facility] 00:00:00 neoplasm of colon Medical Ce nter (procedure) [code = 504082889] Future Scheduled 1970 Screening for malignant [facility] 00:00:00 neoplasm of colon Medical Ce nter (procedure) [code = 760082870] Future Scheduled 1970 Sigmoidoscopy [facility]code [facility] S[facility]oidoscopy] Medical Cente r Future Scheduled 1970 CT Colonography (combo) [facility] 00:00:00 [code = CT Colonography [facility] (combo)] Future Scheduled 1970 Screening for malignant [facility] 00:00:00 neoplasm of colon Medical Ce nter (procedure) [code = 941887440] Future Scheduled 1970 Screening for malignant [facility] 00:00:00 neoplasm of colon Medical Ce nter (procedure) [code = 667469283] Future Scheduled 1970 Sigmoidoscopy [facility]code [facility] S[facility]oidoscopy] Medical Cente r Future Scheduled 1970 CT Colonography (combo) [facility] 00:00:00 [code = CT Colonography [facility] (combo)] Future Scheduled 1970 Screening for malignant [facility] 00:00:00 neoplasm of colon Medical Ce nter (procedure) [code = 669816357] Future Scheduled 1970 Screening for malignant [facility] 00:00:00 neoplasm of colon Medical Ce nter (procedure) [code = 814491648] Future Scheduled 1970 Sigmoidoscopy [code [facility] Sigmoidoscopy] Medical Angele r Future Scheduled 1970 CT Colonography (combo) [facility] 00:00:00 [code = CT Colonography [facility] (combo)] Encounters Start End Encounter Admission Attending Care Care Encounter Source Date/Time Date/Time Type Type Clinicians Facility Department ID 2020-02-23 Inpatient HCAPM LENNY [id number] [facility] 18:42:00 89 [facility] 2020-02-17 [id number] [facility] 00:22:00 Oladipo 75 [facility] 2020-01-05 Inpatient UR Perea, HCAPM MEDI.01 [id number] [facility] 20:23:00 Mark 40 [facility] 2019-12-13 Inpatient HCAMN JULIA [id number] [facility] 17:52:00 47 [facility] 2022-03-29 2022-03-29 Emergency EM White, [facility] AERS [id number] [facility] 14:26:00 16:45:00 Steve Adams [facility] 2022-03-29 2022-03-29 Emergency EM White, HCACL HC[facility] [id number] [facility] 14:26:00 16:45:00 Steve Luu06 [facility] 2022-03-25 2022-03-26 Inpatient E RICHARD [facility] MED [id number] [facility] 13:38:00 10:16:00 , YESSI 2022-03-15 2022-03-18 Emergency E RADHA [facility] MED [id number] [facility] 13:36:00 18:59:00 [facility] 2022-03-13 2022-03-13 Emergency [facility] [id number] [place] 15:33:00 20:25:00 [facility] 2022-03-13 2022-03-13 Emergency [facility] [id number] [place] 15:33:00 20:25:00 [facility] 2022-03-13 2022-03-13 Outpatient RONALD, [facility] [id number] [place] 00:00:00 00:00:00 [facility] 2022-03-06 2022-03-09 Inpatient ER LEÓN JOYNER [facility] Emergency [id number] [facility] 12:16:00 12:55:00 2022-03-06 2022-03-09 [place] [id number] [facility] 12:16:00 12:55:00 Encounter Dee Dee Montalvo Fang-Ying M edical Heinen, Allison [place]. [place] León Joyner 2022-03-06 2022-03-09 [facility] [id number] 12:16:00 12:55:00 Encounter Dee Dee Montalvo Fang-Ying M edical Heinen, Allison P. [facility] León Arguetaba 2022-03-06 2022-03-06 Outpatient [facility] [id number] [employer] [facility] [employer] [facility] 00:00:00 23:59:00 Helioebenezer Travisger funk 2022-03-06 2022-03-06 Orders [facility] [id number] 00:00:00 00:00:00 Only [facility] 2022-03-06 2022-03-06 Travel [facility] [id number] [facility] 00:[facility]00 00:00:00 [facility] 2022-03-06 2022-03-06 Orders [facility] [id number] 00:00:00 00:00:00 Only [facility] 2022-03-06 2022-03-06 Travel [facility] [id number] [facility] 00:00:00 00:00:00 [facility] 2022-02-18 2022-02-20 Emergency Teddy Carbajal [facility] [id number] [place] 13:58:00 11:55:00 [facility] Mela Chavezo 2022-02-18 2022-02-20 Emergency Teddy Carbajal [facility] [id number] [place] 13:58:00 11:55:00 [facility] Lazaro, [facility] Laz Blake Kobe H 2022-02-18 2022-02-18 [facility] [id number] [place] 15:19:05 15:23:18 [facility] 2022-02-18 2022-02-18 [facility] [id number] [place] 13:58:00 13:58:00 [facility] 2022-02-18 2022-02-[address] [facility] [id number] [place] 00:00:00 00:00:00 , OSCAR blanchard 2022-02-07 2022-02-11 [facility] [id number] [place] 13:40:00 13:22:00 [facility] Alves 2022-02-07 2022-02-11 [place], Mounang [facility] [id number] [place] 13:40:00 13:22:00 Encounter Meghan Islas [facility] Teresa Alves 2022-02-07 2022-02-[address] [facility] [id number] [place] 13:40:00 13:40:00 [facility] 2022-01-30 2022-01-30 Emergency EM Tara [facility] [id number] [facility] 17:02:00 18:29:[address] [facility] 2022-01-30 2022-01-30 Emergency SEAN Pacheco [facility] [id number] [facility] 17:02:00 18:29:[id number] [facility] 2022-01-22 2022-01-22 Emergency [facility] [id number] [place] 17:24:00 20:39:00 [facility] 2022-01-22 2022-01-22 Emergency [facility] [id number] [place] 17:24:00 20:39:00 [facility] 2022-01-16 2022-01-21 Emergency Raymon Martin [facility] [id number] [place] 11:04:00 18:08:00 Karin Bassett [facility] 2022-01-16 2022-01-21 Emergency Raymon Martin [facility] [id number] [place] 11:04:00 18:08:00 Karin Bassett Julian C Agrawal, Parth P 2022-01-19 2022-01-[address] [facility] [id number] [place] 12:34:08 13:29:31 [facility] 2022-01-16 2022-01-[address] [facility] [id number] [place] 19:42:28 20:01:28 [facility] 2022-01-16 2022-01-[address] [facility] [id number] [place] 11:04:00 11:04:00 KARIN Daniels 2022-01-10 2022-01-11 Emergency eBrt Reed [facility] [id number] [place] 10:58:00 11:20:00 Helene Ring [facility] Merissa Richards 2022-01-10 2022-01-11 Emergency Bert Reed [facility] [id number] [place] 10:58:00 11:20:00 Helene Ring [facility] Merissa Richards 2022-01-10 2022-01-[address] [facility] [id number] [place] 10:58:00 10:58:00 [facility] 2022-01-08 2022-01-09 Emergency [facility] [id number] [place] 17:57:00 02:50:00 [facility] 2022-01-08 2022-01-09 Emergency [facility] [id number] [place] 17:57:00 02:50:00 [facility] 2022-01-08 2022-01-[address] [facility] [id number] [place] 21:40:34 21:50:19 [facility] 2021-09-23 2021-09-23 Emergency EM Quintin Leviian [facility] AERS [id number] [facility] 19:35:00 21:10:00 74 [facility] 2021-09-13 2021-09-13 Emergency EM Raffaele Levi [facility] [id number] [facility] 14:57:00 16:37:00 06 [facility] 2021-07-27 2021-07-27 Emergency EM Kateryna, [facility] [id number] [facility] 10:15:00 12:36:[address] [place] [address] 2021-07-22 2021-07-22 Emergency EM Marcelina[facility] [id number] [facility] 04:25:00 08:20:00 Tarrell 74 [facility] 2021-06-27 2021-06-27 Emergency EM White[facility] [id number] [facility] 15:31:00 17:37:00 Steve 17 [facility] 2021-04-28 2021-05-01 Inpatient EM Aisha[facility] [id number] [facility] 21:05:00 14:18:00 Christopher 03 [facility] 2020-02-24 2020-02-[address] [facility] [id number] [facility] 07:51:00 07:51:00 Mark 96 [facility] 2020-02-18 2020-02-18 Outpatient JOE NovaO [id number] [facility] 00:26:00 00:26:00 Oladipo 05 [facility] 2020-01-05 2020-01-05 Outpatient JOE Perea [id number] [facility] 23:52:00 23:52:00 Mark 24 [facility] 2017-11-02 2017-11-02 Emergency E [facility] MED [id number] 08:33:00 08:33:00 [facility] 2017-08-05 2017-08-[address] [facility] [id number] [place] 00:00:00 00:00:00 [facility] 2017-07-28 2017-07-[address] [facility] [id number] [place] 00:00:00 00:00:00 [facility] 2017-06-24 2017-06-[address] [facility] [id number] [place] 00:00:00 00:00:00 [facility] 2017-06-22 2017-06-[address] [facility] [id number] [place] 21:37:29 21:37:29 [facility] 2017-06-22 2017-06-22 Emergency [facility] MED [id number] [place] 21:06:00 21:06:00 [facility] 2017-06-22 2017-06-[address] [facility] [id number] [place] 10:02:31 10:02:31 [facility] 2017-06-09 2017-06-[address] [facility] [id number] [place] 00:00:00 00:00:00 [facility] 2017-06-09 2017-06-[address] [facility] [id number] [place] 00:00:00 00:00:00 [facility] 2017-05-08 2017-05-08 Emergency [facility] MED [id number] [place] 01:04:44 01:04:44 [facility] 2017-05-05 2017-05-05 Emergency E [facility] [id number] [facility] 08:11:00 08:11:00 [facility] 2017-04-15 2017-04-15 Emergency E [facility] MED [id number] [facility] 09:53:00 09:53:00 [facility] 2017-04-14 2017-04-[address] 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 Negative: < = 0.08 Positive: >= [...] changes in trop onin levels characteristic of OR. BASIC METABOLIC [id number] 14:56:00 Test Item Value Reference Range Interpretation [...] MG/DL 70-110 N - XR CHEST 1 [id number] 00:00:00 [facility] MARIA ISABEL JOSEPH : 1970 Sex: M FAX: Steve Urias MD [phone] [place]: MD St: REG Name: MARIA ISABEL JOSEPH Castro FSED : 1970 Age/S: 52/M [address] [facility] Unit #: [id number] Loc: LILLY Erazo, [place] [address] Phys: Steve Urias MD Acct: [id number] Dis Date: Status: REG ER PHONE #: Exam Date: 03/29/2022 1501 FAX #: Reason: Weakness EXAMS: CPT CODE: [id number] XR CHEST 1 V 07197 PROCEDURE INFORMATION: Exam: XR Chest Exam date [...] Technologist: Avtar Lang RT(R)(CT) Trnscrd Date/Time/By: 03/29/2022 (1530): By: [email or web address] Orig Print D/T: S: 03/29/2022 (1536) PAGE 1 Signed ReportHEPATIC FUNCTION [id number] 06:45:03 Test Item Value Reference Range Interpretation [...] (test code = 13 U/L 6-55 347) Biochemistry Professor ID - ERWIN WBASIC METABOLIC [id number] 06:45:02 Test Item Value Reference Range Interpretation [...] S NOT APPLICABLE FOR DIALYSIS PATIEN TS. Biochemistry Professor ID Philipp HOOD WCBC W/PLT COUNT & AUTO [id number] 06:26:54 Test Item Value Reference Range Interpretation [...] (BEAKER) (test code = 2801) U/S, RENAL, [id number] 19:23:00Reason for exam:->[facility] MARIA ISABEL : 1970 Sex: MFINAL REPORT TECHNIQUE: Grayscale [...] SARS-Co V-2 (test code = target nucleic 31839-3) acids are not detected in thi s [...] om SARS-CoV-2 in a nasopharyngeal swab specimen [facility] from individual s suspected of [...] revoked sooner. Fact Sheet for Healthcare Providers: https://www.Fabrus/Documents/Xp ert%20Xpress%20SAR S%20CoV-2/Fact%20S heets/302-3802%20S ARS-COV-2%20HEALTH CARE%20PROVIDERS%2 0FACT%20SHEET.pdf Fact Sheet for Healthcare Patients: https://www.[employer]rus/Documents/Xp ert%20Xpress%20SAR S%20CoV-2/Fact%20S heets/302-3801%20S ARS-COV-2%20PATIEN T%20FACT%20SHEET.p df Lab Interpretation Normal (test code = 45384-3) [facility]2022-03-06 19:17:07 Test Item Value Reference Interpretation Comments Range SARS-COV2/RT-PCR Negative Negative The SARS-Co V-2 (test code = target nucleic 93336-8) acids are not detected in thi s specimen. Negat cetor results do not preclude SARS-C oV-2 infection [...] revoked sooner. Fact Sheet for Healthcare Providers: https://www.Fabrus/Documents/Xp ert%20Xpress%20SAR S%20CoV-2/Fact%20S heets/302-3802%20S ARS-COV-2%20HEALTH CARE%20PROVIDERS%2 0FACT%20SHEET.pdf Fact Sheet for Healthcare Patients: https://www.Fabrus/Documents/Xp ert%20Xpress%20SAR S%20CoV-2/Fact%20S heets/3023801%20S ARS-COV-2%20PATIEN T%20FACT%20SHEET.p df Lab Interpretation Normal (test code = 49229-1) [facility]06 19:17:07 Test Item Value Reference Interpretation Comments Range SARS-COV2/RT-PCR Negative Negative The SARS-Co V-2 (test code = target nucleic 10202-9) acids are not detected in thi s [...] revoked sooner. Fact Sheet for Healthcare Providers: https://www.[employer]/Documents/Xp ert%20Xpress%20SAR S%20CoV-2/Fact%20S heets/3023802%20S ARS-COV-2%20HEALTH CARE%20PROVIDERS%2 0FACT%20SHEET.pdf Fact Sheet for Healthcare Patients: https://www.[employer]/Documents/Xp ert%20Xpress%20SAR S%20CoV-2/Fact%20S heets/302-3801%20S ARS-COV-2%20PATIEN T%20FACT%20SHEET.p df Lab Interpretation Normal (test code = 55762-6) [facility]22-[facility]-06 19:17:07 Test Item Value Reference Interpretation Comments Range SARS-COV2/RT-PCR Negative Negative The SARS-Co V-2 (test code = target nucleic 36607-4) acids are not detected in thi s [...] revoked sooner. Fact Sheet for Healthcare Providers: https://www.[employer]/Documents/Xp ert%20Xpress%20SAR S%20CoV-2/Fact%20S heets/302-3802%20S ARS-COV-2%20HEALTH CARE%20PROVIDERS%2 0FACT%20SHEET.pdf Fact Sheet for Healthcare Patients: https://www.[employer]/Documents/Xp ert%20Xpress%20SAR S%20CoV-2/Fact%20S heets/302-3801%20S ARS-COV-2%20PATIEN T%20FACT%20SHEET.p df Lab Interpretation Normal (test code = 55164-9) [facility]22-[facility]-06 19:17:07 Test Item Value Reference Interpretation Comments Range SARS-COV2/RT-PCR Negative Negative The SARS-Co V-2 (test code = target nucleic 73327-5) acids are not detected in thi s [...] revoked sooner. Fact Sheet for Healthcare Providers: https://www.[employer]/Documents/Xp ert%20Xpress%20SAR S%20CoV-2/Fact%20S heets/302-3802%20S ARS-COV-2%20HEALTH CARE%20PROVIDERS%2 0FACT%20SHEET.pdf Fact Sheet for Healthcare Patients: https://www.[employer]/Documents/Xp ert%20Xpress%20SAR S%20CoV-2/Fact%20S heets/302-3801%20S ARS-COV-2%20PATIEN T%20FACT%20SHEET.p df Lab Interpretation Normal (test code = 50462-2) [facility]2022-03-06 19:17:07 Test Item Value Reference Interpretation Comments Range SARS-COV2/RT-PCR Negative Negative The SARS-Co V-2 (test code = target nucleic 24897-2) acids are not detected in thi s [...] revoked sooner. Fact Sheet for Healthcare Providers: https://www.[employer]/Documents/Xp ert%20Xpress%20SAR S%20CoV-2/Fact%20S heets/302-7752%20S ARS-COV-2%20HEALTH CARE%20PROVIDERS%2 0FACT%20SHEET.pdf Fact Sheet for Healthcare Patients: https://www.[employer]/Documents/Xp ert%20Xpress%20SAR S%20CoV-2/Fact%20S heets/302-6981%20S ARS-COV-2%20PATIEN T%20FACT%20SHEET.p df Lab Interpretation Normal (test code = 92956-5) [facility]2022-[facility]-06 19:17:07 Test Item Value Reference Interpretation Comments Range SARS-COV2/RT-PCR Negative Negative The SARS-Co V-2 (test code = target nucleic 69085-6) acids are not detected in thi s [...] revoked sooner. Fact Sheet for Healthcare Providers: https://www.[employer]/Documents/Xp ert%20Xpress%20SAR S%20CoV-2/Fact%20S heets/302-3802%20S ARS-COV-2%20HEALTH CARE%20PROVIDERS%2 0FACT%20SHEET.pdf Fact Sheet for Healthcare Patients: https://www.[employer]/Documents/Xp ert%20Xpress%20SAR S%20CoV-2/Fact%20S heets/302-3801%20S ARS-COV-2%20PATIEN T%20FACT%20SHEET.p df Lab Interpretation Normal (test code = 64699-9) [facility]2022-[facility]-06 19:17:07 Test Item Value Reference Interpretation Comments Range SARS-COV2/RT-PCR Negative Negative The SARS-Co V-2 (test code = target nucleic 97054-6) acids are not detected in thi s [...] revoked sooner. Fact Sheet for Healthcare Providers: https://www.[employer]/Documents/Xp ert%20Xpress%20SAR S%20CoV-2/Fact%20S heets/302-3802%20S ARS-COV-2%20HEALTH CARE%20PROVIDERS%2 0FACT%20SHEET.pdf Fact Sheet for Healthcare Patients: https://www.[employer]/Documents/Xp ert%20Xpress%20SAR S%20CoV-2/Fact%20S heets/302-3801%20S ARS-COV-2%20PATIEN T%20FACT%20SHEET.p df Lab Interpretation Normal (test code = 77511-9) [facility]2022-03-06 19:17:07 Test Item Value Reference Interpretation Comments Range SARS-COV2/RT-PCR Negative Negative The SARS-Co V-2 (test code = target nucleic 49488-1) acids are not detected in thi s [...] revoked sooner. Fact Sheet for Healthcare Providers: https://www.[employer]/Documents/Xp ert%20Xpress%20SAR S%20CoV-2/Fact%20S heets/302-3802%20S ARS-COV-2%20HEALTH CARE%20PROVIDERS%2 0FACT%20SHEET.pdf Fact Sheet for Healthcare Patients: https://www.[employer]/Documents/Xp ert%20Xpress%20SAR S%20CoV-2/Fact%20S heets/302-3801%20S ARS-COV-2%20PATIEN T%20FACT%20SHEET.p df Lab Interpretation Normal (test code = 88142-0) [facility]2022-03-06 19:17:07 Test Item Value Reference Interpretation Comments Range SARS-COV2/RT-PCR Negative Negative The SARS-Co V-2 (test code = target nucleic 31201-6) acids are not detected in thi s [...] revoked sooner. Fact Sheet for Healthcare Providers: https://www.[employer]/Documents/Xp ert%20Xpress%20SAR S%20CoV-2/Fact%20S heets/302-3802%20S ARS-COV-2%20HEALTH CARE%20PROVIDERS%2 0FACT%20SHEET.pdf Fact Sheet for Healthcare Patients: https://www.[employer]/Documents/Xp ert%20Xpress%20SAR S%20CoV-2/Fact%20S heets/302-3801%20S ARS-COV-2%20PATIEN T%20FACT%20SHEET.p df Lab Interpretation Normal (test code = 46759-7) [facility]2022-03-06 19:17:07 Test Item Value Reference Interpretation Comments Range SARS-COV2/RT-PCR Negative Negative The SARS-Co V-2 (test code = target nucleic 14679-1) acids are not detected in thi s [...] om SARS-CoV-2 in a nasopharyngeal swab specimen [facility] from individual s suspected of [...] revoked sooner. Fact Sheet for Healthcare Providers: https://www.[employer]/Documents/Xp ert%20Xpress%20SAR S%20CoV-2/Fact%20S heets/302-3802%20S ARS-COV-2%20HEALTH CARE%20PROVIDERS%2 0FACT%20SHEET.pdf Fact Sheet for Healthcare Patients: https://www.[employer]/Documents/Xp ert%20Xpress%20SAR S%20CoV-2/Fact%20S heets/302-3801%20S ARS-COV-2%20PATIEN T%20FACT%20SHEET.p df Lab Interpretation Normal (test code = 86855-9) [facility]2022-[facility]-06 19:17:07 Test Item Value Reference Interpretation Comments Range SARS-COV2/RT-PCR Negative Negative The SARS-Co V-2 (test code = target nucleic 09843-4) acids are not detected in thi s [...] revoked sooner. Fact Sheet for Healthcare Providers: https://www.[employer]/Documents/Xp ert%20Xpress%20SAR S%20CoV-2/Fact%20S heets/302-3802%20S ARS-COV-2%20HEALTH CARE%20PROVIDERS%2 0FACT%20SHEET.pdf Fact Sheet for Healthcare Patients: https://www.[employer]/Documents/Xp ert%20Xpress%20SAR S%20CoV-2/Fact%20S heets/302-3801%20S ARS-COV-2%20PATIEN T%20FACT%20SHEET.p df Lab Interpretation Normal (test code = 49854-0) [facility]2022-[facility]-06 19:17:07 Test Item Value Reference Interpretation Comments Range SARS-COV2/RT-PCR Negative Negative The SARS-Co V-2 (test code = target nucleic 30206-5) acids are not detected in thi s [...] revoked sooner. Fact Sheet for Healthcare Providers: https://www.[employer]/Documents/Xp ert%20Xpress%20SAR S%20CoV-2/Fact%20S heets/302-3802%20S ARS-COV-2%20HEALTH CARE%20PROVIDERS%2 0FACT%20SHEET.pdf Fact Sheet for Healthcare Patients: https://www.[employer]/Documents/Xp ert%20Xpress%20SAR S%20CoV-2/Fact%20S heets/302-3801%20S ARS-COV-2%20PATIEN T%20FACT%20SHEET.p df Lab Interpretation Normal (test code = 06875-4) [facility]2022-[facility]-06 19:17:07 Test Item Value Reference Interpretation Comments Range SARS-COV2/RT-PCR Negative Negative The SARS-Co V-2 (test code = target nucleic 93941-8) acids are not detected in thi s [...] revoked sooner. Fact Sheet for Healthcare Providers: https://www.[employer]/Documents/Xp ert%20Xpress%20SAR S%20CoV-2/Fact%20S heets/302-3802%20S ARS-COV-2%20HEALTH CARE%20PROVIDERS%2 0FACT%20SHEET.pdf Fact Sheet for Healthcare Patients: https://wwwQuinn[employer]/Documents/Xp ert%20Xpress%20SAR S%20CoV-2/Fact%20S heets/302-3801%20S ARS-COV-2%20PATIEN T%20FACT%20SHEET.p df Lab Interpretation Normal (test code = 22843-6) [facility]2022-[facility]-06 19:17:07 Test Item Value Reference Interpretation Comments Range SARS-COV2/RT-PCR Negative Negative The SARS-Co V-2 (test code = target nucleic 75080-5) acids are not detected in thi s [...] revoked sooner. Fact Sheet for Healthcare Providers: https://www.[employer]/Documents/Xp ert%20Xpress%20SAR S%20CoV-2/Fact%20S heets/302-3802%20S ARS-COV-2%20HEALTH CARE%20PROVIDERS%2 0FACT%20SHEET.pdf Fact Sheet for Healthcare Patients: https://www.[employer]/Documents/Xp ert%20Xpress%20SAR S%20CoV-2/Fact%20S heets/302-3801%20S ARS-COV-2%20PATIEN T%20FACT%20SHEET.p df Lab Interpretation Normal (test code = 73072-7) [facility]2022-[facility]-06 19:17:07 Test Item Value Reference Interpretation Comments Range SARS-COV2/RT-PCR Negative Negative The SARS-Co V-2 (test code = target nucleic 98081-7) acids are not detected in thi s [...] revoked sooner. Fact Sheet for Healthcare Providers: https://www.[employer]/Documents/Xp ert%20Xpress%20SAR S%20CoV-2/Fact%20S heets/302-3802%20S ARS-COV-2%20HEALTH CARE%20PROVIDERS%2 0FACT%20SHEET.pdf Fact Sheet for Healthcare Patients: https://www.[employer]/Documents/Xp ert%20Xpress%20SAR S%20CoV-2/Fact%20S heets/302-3801%20S ARS-COV-2%20PATIEN T%20FACT%20SHEET.p df Lab Interpretation Normal (test code = 94419-2) [facility]2022-[facility]-06 19:17:07 Test Item Value Reference Interpretation Comments Range SARS-COV2/RT-PCR Negative Negative The SARS-Co V-2 (test code = target nucleic 74280-0) acids are not detected in thi s [...] S ARS CoV-2 test is a rapid, real-ykle e RT-PCR test intended for th e [...] revoked sooner. Fact Sheet for Healthcare Providers: https://www.[employer]/Documents/Xp ert%20Xpress%20SAR S%20CoV-2/Fact%20S heets/302-3802%20S ARS-COV-2%20HEALTH CARE%20PROVIDERS%2 0FACT%20SHEET.pdf Fact Sheet for Healthcare Patients: https://www.[employer]/Documents/Xp ert%20Xpress%20SAR S%20CoV-2/Fact%20S heets/302-3801%20S ARS-COV-2%20PATIEN T%20FACT%20SHEET.p df Lab Interpretation Normal (test code = 06745-3) [facility]2022-[facility]-06 19:17:07 Test Item Value Reference Interpretation Comments Range SARS-COV2/RT-PCR Negative Negative The SARS-Co V-2 (test code = target nucleic 17545-0) acids are not detected in thi s [...] revoked sooner. Fact Sheet for Healthcare Providers: https://www.[employer]/Documents/Xp ert%20Xpress%20SAR S%20CoV-2/Fact%20S heets/302-3802%20S ARS-COV-2%20HEALTH CARE%20PROVIDERS%2 0FACT%20SHEET.pdf Fact Sheet for Healthcare Patients: https://www.[employer]/Documents/Xp ert%20Xpress%20SAR S%20CoV-2/Fact%20S heets/302-3801%20S ARS-COV-2%20PATIEN T%20FACT%20SHEET.p df Lab Interpretation Normal (test code = 59960-1) [facility]2022-[facility]-06 19:17:07 Test Item Value Reference Interpretation Comments Range SARS-COV2/RT-PCR Negative Negative The SARS-Co V-2 (test code = target nucleic 62267-0) acids are not detected in thi s [...] revoked sooner. Fact Sheet for Healthcare Providers: https://www.[employer]/Documents/Xp ert%20Xpress%20SAR S%20CoV-2/Fact%20S heets/302-3802%20S ARS-COV-2%20HEALTH CARE%20PROVIDERS%2 0FACT%20SHEET.pdf Fact Sheet for Healthcare Patients: https://www.[employer]/Documents/Xp ert%20Xpress%20SAR S%20CoV-2/Fact%20S heets/302-3801%20S ARS-COV-2%20PATIEN T%20FACT%20SHEET.p df Lab Interpretation Normal (test code = 84189-1) [facility] 19:17:07 Test Item Value Reference Interpretation Comments Range SARS-COV2/RT-PCR Negative Negative The SARS-Co V-2 (test code = target nucleic 89580-4) acids are not detected in thi s [...] revoked sooner. Fact Sheet for Healthcare Providers: https://www.[employer]/Documents/Xp ert%20Xpress%20SAR S%20CoV-2/Fact%20S heets/302-3802%20S ARS-COV-2%20HEALTH CARE%20PROVIDERS%2 0FACT%20SHEET.pdf Fact Sheet for Healthcare Patients: https://www.[employer]/Documents/Xp ert%20Xpress%20SAR S%20CoV-2/Fact%20S heets/302-3801%20S ARS-COV-2%20PATIEN T%20FACT%20SHEET.p df Lab Interpretation Normal (test code = 70854-4) [facility])2022-03-06 19:17:07 Test Item Value Reference Range Interpretation Comments SARS-COV2/RT-PCR Negative Negative The SARS-Co V-2 target (test code = nucleic acids a re not 5705607) detected in thi s specimen. Negative result [...] revoked sooner. Fact Sheet for Healthcare Providers: https://www.[employer]/Documents/Xpert%20Xpress%20SARS%20CoV-2/Fact%20Sheets/3023802%07AULR-BAW-6%20 HEALTHCARE%20PROVIDERS%20FACT%20SHEET.pdf Fact Sheet for Healthcare Patients: https://www.[employer]/Documents/Xpert%20Xp ress%20SARS%20CoV-2/Fact%20Sheets/302-3801%64ISFL-TJY-6%20PATIENT%20FACT%20SHEET .pdfCREATINE KINASE (CK)2022-03-06 16:19:14 Test Item Value Reference Range Interpretation Comments CREATINE KINASE TOTAL (BEAKER) (test 141 U/L 29-200 code = 380) Biochemistry Professor ID - BST4, [id number] 15:13:16 Test Item Value Reference Range Interpretation Comments FREE T4 (BEAKER) (test code = 655) 0.95 ng/dL 0.70-1.48 Biochemistry Professor ID - BSTSH/FREE T4 IF [id number] 15:13:16 Test Item Value Reference Range Interpretation Comments THYROID STIMULATING HORMONE 2.060 uIU/mL 0.350-4.940 (BEAKER) (test code = 772) Biochemistry Professor ID - BSB-TYPE NATRIURETIC FACTOR (BNP)2022-03-06 14:26:30 Test Item Value Reference Range Interpretation Comments B-TYPE NATRIURETIC PEPTIDE (BEAKER) < pg/mL 0-100 (test code = 700) Biochemistry Professor ID - JSHIGH SENSITIVITY TROPONIN [id number] 14:14:54 Test Item Value Reference Range Interpretation Comments HIGH SENSITIVITY < pg/ml See_Comment [Automated message] TROPONIN I (test code = The system which 8286032) generated this result transmitted ref erence range: <=35. Th e reference range was not used to interpr et this result as normal/abnormal . Biochemistry Professor ID - JSThe TRACTOR TECHNICIAN STAT High Sensitivity Troponin-I results should be used in conjunctionwith other diagnostic information such as ECG, clinical observations and information, and patient symptoms to aid in the diagnosis of OR.RAD, CHEST, 1 VIEW, NON [id number] 14:10:00Reason for exam:- >NEUROLOGIC PROBLEMShould this be performed at the bedside?->Yes [facility] : 1970 Sex: MFINAL REPORT Chest, 1 view, 03/06/2022 2:03 PM. History: Neurologic problem. Comparison: 03/28/2019. Discussion: The cardiomediastinal silhouette and pulmonary vasculature are within normal limits for a portable exam. The lungs are clear without evidence of consolidation or effusion. The soft tissues and osseous structures are intact. IMPRESSION: No acute cardiopulmonary abnormality. Signed: [facility] Verified Date/Time: 03/06/2022 14:10:44 REHENSIVE METABOLIC [id number] 14:08:22 Test Item Value Reference Range Interpretation [...] S NOT APPLICABLE FOR DIALYSIS PATIEN TS. Biochemistry Professor ID - [id number] 14:07:49 Test Item Value Reference Range Interpretation Comments MAGNESIUM (BEAKER) (test code = 2.0 mg/dL 1.6-2.6 627) Biochemistry Professor ID - [id number] 14:07:49 Test Item Value Reference Range Interpretation Comments PHOSPHORUS (BEAKER) (test code = 5.6 mg/dL 2.3-4.7 H 604) Biochemistry Professor ID - JSLACTIC ACID, [id number] 13:51:04 Test Item Value Reference Range Interpretation Comments LACTATE BLOOD VENOUS 1.32 mmol/L 0.50-2.20 Specime n slightly (2) (BEAKER) (test hemolyzed code = 2872) Biochemistry Professor ID - JSCBC W/PLT COUNT & AUTO [id number] 13:47:24 Test Item Value Reference Range Interpretation [...] (BEAKER) (test code = 2801) Coronavirus, CoVID-19, [id number] 01:07:20 Test Item Value Reference Range Interpretation Comments COVID-19 (SARS-COV-2) Not Detected Not Detected INTERP RETATION: No (test code = 71058-2) detect able levels of SARS-CoV-2 Coronavirus (COVID-19) [...] SARS-CoV-2 mole cular diagnostic assa y utilizes Sink Maker Mediated Amplification ( TMA) technology to r apidly detect the SARS -CoV-2 (COVID-19) viru s from respiratory adriana ples. In accordance w ith the FDA's kamran nce document "Polic y for Diagnostic Test s for Coronavirus Disease-2019 du ring the Public [facility] Emergency", thi s test was developed, and its performance characteristics were verified by the [facility] molecular diagn ostics laboratory and is authorized for clinical diagno stic use. This labor atory is certified un est[place] the Clinical Laboratory Improvement Amendments (CLI A) as qualified to pe rform high complexity clinical labora tory testing. Lab Interpretation Normal (test code = 47536-8) [facility] [id number] 01:07:20 Test Item Value Reference Range Interpretation Comments COVID-19 (SARS-COV-2) Not Detected Not Detected INTERP RETATION: No (test code = 78376-7) detect able levels of SARS-CoV-2 Coronavirus (COVID-19) [...] SARS-CoV-2 mole cular diagnostic assa y utilizes Sink Maker Mediated Amplification ( TMA) technology to r apidly detect the SARS -CoV-2 (COVID-19) viru s from respiratory adriana ples. In accordance w ith the FDA's kamran nce document "Polic y for Diagnostic Test s for Coronavirus Disease-2019 du ring the Public [facility] Emergency", thi s test was developed, and its performance characteristics were verified by the [facility] molecular diagn ostics laboratory and is authorized for clinical diagno stic use. This labor atory is certified un [place] the Clinical Laboratory Improvement Amendments (CLI A) as qualified to pe rform high complexity clinical labora tory testing. Lab Interpretation Normal (test code = 39546-0) [place] [facility], CoVID-19, [id number] 01:07:20 Test Item Value Reference Range Interpretation Comments COVID-19 (SARS-COV-2) Not Detected Not Detected INTERP RETATION: No (test code = 07784-8) detect able levels of SARS-CoV-2 Coronavirus (COVID-19) [...] SARS-CoV-2 mole cular diagnostic assa y utilizes Sink Maker Mediated Amplification ( TMA) technology to r apidly detect the SARS -CoV-2 (COVID-19) viru s from respiratory adriana ples. In accordance w ith the FDA's kamran nce document "Polic y for Diagnostic Test s for Coronavirus Disease-[address] [facility] the Public [facility] Emergency", thi s test was developed, and its performance characteristics were verified by the [facility] molecular diagn ostics laboratory and is authorized for clinical diagno stic use. This labor atory is certified un [place] the Clinical Laboratory Improvement Amendments (CLI A) as qualified to pe rform high complexity clinical labora tory testing. Lab Interpretation Normal (test code = 76919-4) [facility], CoVID-[facility], [id number] 01:07:20 Test Item Value Reference Range Interpretation Comments COVID-19 (SARS-COV-2) Not Detected Not Detected INTERP RETATION: No (test code = 75939-2) detect able levels of SARS-CoV-2 Coronavirus (COVID-19) [...] SARS-CoV-2 mole cular diagnostic assa y utilizes Sink Maker Mediated Amplification ( TMA) technology to r apidly detect the SARS -CoV-2 (COVID-19) viru s from respiratory adriana ples. In accordance w ith the FDA's kamran nce document "Polic y for Diagnostic Test s for Coronavirus Disease-[address] du [facility] the [facility] Emergency", thi s test was developed, and its performance characteristics were verified by the [facility] molecular diagn ostics laboratory and is authorized for clinical diagno stic use. This labor atory is certified un [place] the Clinical Laboratory Improvement Amendments (CLI A) as qualified to pe rform high complexity clinical labora tory testing. Lab Interpretation Normal (test code = 21891-9) [facility], [id number] 01:07:20 Test Item Value Reference Range Interpretation Comments COVID-19 (SARS-COV-2) Not Detected Not Detected INTERP RETATION: No (test code = 13528-6) detect able levels of SARS-CoV-2 Coronavirus (COVID-19) [...] SARS-CoV-2 mole cular diagnostic assa y utilizes Sink Maker Mediated Amplification ( TMA) technology to r apidly detect the SARS -CoV-2 (COVID-19) viru s from respiratory adriana ples. In accordance w ith the FDA's kamran nce document "Polic y for Diagnostic Test s for Coronavirus Disease-2019 du [facility]", thi s test was developed, and its performance characteristics were verified by the [facility] molecular diagn ostics laboratory and is authorized for clinical diagno stic use. This labor atory is certified un [place] the Clinical Laboratory Improvement Amendments (CLI A) as qualified to pe rform high complexity clinical labora tory testing. Lab Interpretation Normal (test code = 75088-7) [facility], [id number] 01:07:20 Test Item Value Reference Range Interpretation Comments COVID-19 (SARS-COV-2) Not Detected Not Detected INTERP RETATION: No (test code = 64722-5) detect able levels of SARS-CoV-2 Coronavirus (COVID-19) [...] SARS-CoV-2 mole cular diagnostic assa y utilizes Sink Maker Mediated Amplification ( TMA) technology to r apidly detect the SARS -CoV-2 (COVID-19) viru s from respiratory adriana ples. In accordance w ith the FDA's kamran nce document "Polic y for Diagnostic Test s for Coronavirus Disease-[address] [facility] the Public [facility] Emergency", thi s test was developed, and its performance characteristics were verified by the [facility] molecular diagn ostics laboratory and is authorized for clinical diagno stic use. This labor atory is certified un [place] the Clinical Laboratory Improvement Amendments (CLI A) as qualified to pe rform high complexity clinical labora tory testing. Lab Interpretation Normal (test code = 63848-1) [facility], CoVID-[facility], [id number] 01:07:20 Test Item Value Reference Range Interpretation Comments COVID-19 (SARS-COV-2) Not Detected Not Detected INTERP RETATION: No (test code = 17288-8) detect able levels of SARS-CoV-2 Coronavirus (COVID-19) [...] SARS-CoV-2 mole cular diagnostic assa y utilizes Sink Maker Mediated Amplification ( TMA) technology to r apidly detect the SARS -CoV-2 (COVID-19) viru s from respiratory adriana ples. In accordance w ith the FDA's kamran nce document "Polic y for Diagnostic Test s for Coronavirus Disease-2019 du ring the Public [facility] Emergency", thi s test was developed, and its performance characteristics were verified by the [facility] molecular diagn ostics laboratory and is authorized for clinical diagno stic use. This labor atory is certified un [place] the Clinical Laboratory Improvement Amendments (CLI A) as qualified to pe rform high complexity clinical labora tory testing. Lab Interpretation Normal (test code = 41311-0) [facility], [id number] 01:07:20 Test Item Value Reference Range Interpretation Comments COVID-19 (SARS-COV-2) Not Detected Not Detected INTERP RETATION: No (test code = 40768-0) detect able levels of SARS-CoV-2 Coronavirus (COVID-19) [...] SARS-CoV-2 mole cular diagnostic assa y utilizes Sink Maker Mediated Amplification ( TMA) technology to r apidly detect the SARS -CoV-2 (COVID-19) viru s from respiratory adriana ples. In accordance w ith the FDA's kamran nce document "Polic y for Diagnostic Test s for Coronavirus Disease-2019 [facility] the Public [facility] Emergency", thi s test was developed, and its performance characteristics were verified by the [facility] molecular diagn ostics laboratory and is authorized for clinical diagno stic use. This labor atory is certified un est[place]an the Clinical Laboratory Improvement Amendments (CLI A) as qualified to pe rform high complexity clinical labora tory testing. Lab Interpretation Normal (test code = 26443-3) [facility] [id number] 01:07:20 Test Item Value Reference Range Interpretation Comments COVID-19 (SARS-COV-2) Not Detected Not Detected INTERP RETATION: No (test code = 80439-7) detect able levels of SARS-CoV-2 Coronavirus (COVID-19) [...] SARS-CoV-2 mole cular diagnostic assa y utilizes Sink Maker Mediated Amplification ( TMA) technology to r apidly detect the SARS -CoV-2 (COVID-19) viru s from respiratory adriana ples. In accordance w ith the FDA's kamran nce document "Polic y for Diagnostic Test s for Coronavirus Disease-2019 du ring the Public Heal Emergency", thi s test was developed, and its performance characteristics were verified by the [facility] molecular diagn ostics laboratory and is authorized for clinical diagno stic use. This labor atory is certified un [place] the Clinical Laboratory Improvement Amendments (CLI A) as qualified to pe rform high complexity clinical labora tory testing. Lab Interpretation Normal (test code = 27568-7) [facility], [id number] 01:07:20 Test Item Value Reference Range Interpretation Comments COVID-19 (SARS-COV-2) Not Detected Not Detected INTERP RETATION: No (test code = 92169-4) detect able levels of SARS-CoV-2 Coronavirus (COVID-19) [...] SARS-CoV-2 mole cular diagnostic assa y utilizes Sink Maker Mediated Amplification ( TMA) technology to r apidly detect the SARS -CoV-2 (COVID-19) viru s from respiratory adriana ples. In accordance w ith the FDA's kamran nce document "Polic y for Diagnostic Test s for Coronavirus Disease-2019 du ring the Public Heal th Emergency", thi s test was developed, and its performance characteristics were verified by the [facility] molecular diagn ostics laboratory and is authorized for clinical diagno stic use. This labor atory is certified un [place] the Clinical Laboratory Improvement Amendments (CLI A) as qualified to pe rform high complexity clinical labora tory testing. Lab Interpretation Normal (test code = 66392-3) Lynne Surajronavirus, CoVID-19, [id number] 01:07:20 Test Item Value Reference Range Interpretation Comments COVID-19 (SARS-COV-2) Not Detected Not Detected INTERP RETATION: No (test code = 82691-0) detect able levels of SARS-CoV-2 Coronavirus (COVID-19) [...] SARS-CoV-2 mole cular diagnostic assa y utilizes Sink Maker Mediated Amplification ( TMA) technology to r apidly detect the SARS -CoV-2 (COVID-19) viru s from respiratory adriana ples. In accordance w ith the FDA's kamran nce document "Polic y for Diagnostic Test s for Coronavirus Disease-2019 du ring the Public Heal th Emergency", thi s test was developed, and its performance characteristics were verified by the [facility] molecular diagn ostics laboratory and is authorized for clinical diagno stic use. This labor atory is certified un [place] the Clinical Laboratory Improvement Amendments (CLI A) as qualified to pe rform high complexity clinical labora tory testing. Lab Interpretation Normal (test code = 92176-3) [facility], [id number] 01:07:20 Test Item Value Reference Range Interpretation Comments COVID-19 (SARS-COV-2) Not Detected Not Detected INTERP RETATION: No (test code = 70375-6) detect able levels of SARS-CoV-2 Coronavirus (COVID-19) [...] SARS-CoV-2 mole cular diagnostic assa y utilizes Sink Maker Mediated Amplification ( TMA) technology to r apidly detect the SARS -CoV-2 (COVID-19) viru s from respiratory adriana ples. In accordance w ith the FDA's kamran nce document "Polic y for Diagnostic Test s for Coronavirus Disease-[address] [facility] the [facility] Emergency", thi s test was developed, and its performance characteristics were verified by the [facility] molecular diagn ostics laboratory and is authorized for clinical diagno stic use. This labor atory is certified un [place] the Clinical Laboratory Improvement Amendments (CLI A) as qualified to pe rform high complexity clinical labora tory testing. Lab Interpretation Normal (test code = 00152-1) Lynne Surajronavirus, CoVID-19, [id number] 01:07:20 Test Item Value Reference Range Interpretation Comments COVID-19 (SARS-COV-2) Not Detected Not Detected INTERP RETATION: No (test code = 21129-2) detect able levels of SARS-CoV-2 Coronavirus (COVID-19) [...] SARS-CoV-2 mole cular diagnostic assa y utilizes Sink Maker Mediated Amplification ( TMA) technology to r apidly detect the SARS -CoV-2 (COVID-19) viru s from respiratory adriana ples. In accordance w ith the FDA's kamran nce document "Polic y for Diagnostic Test s for Coronavirus Disease-[address] du [facility] the [facility] Emergency", thi s test was developed, and its performance characteristics were verified by the [facility] molecular diagn ostics laboratory and is authorized for clinical diagno stic use. This labor atory is certified un [place] the Clinical Laboratory Improvement Amendments (CLI A) as qualified to pe rform high complexity clinical labora tory testing. Lab Interpretation Normal (test code = 01704-7) [facility], [id number] 01:07:20 Test Item Value Reference Range Interpretation Comments COVID-19 (SARS-COV-2) Not Detected Not Detected INTERP RETATION: No (test code = 72066-1) detect able levels of SARS-CoV-2 Coronavirus (COVID-19) [...] SARS-CoV-2 mole cular diagnostic assa y utilizes Sink Maker Mediated Amplification ( TMA) technology to r apidly detect the SARS -CoV-2 (COVID-19) viru s from respiratory adriana ples. In accordance w ith the FDA's kamran nce document "Polic y for Diagnostic Test s for Coronavirus Disease-[address] [facility] the Public [facility] Emergency", thi s test was developed, and its performance characteristics were verified by the [facility] molecular diagn ostics laboratory and is authorized for clinical diagno stic use. This labor atory is certified un [place] the Clinical Laboratory Improvement Amendments (CLI A) as qualified to pe rform high complexity clinical labora tory testing. Lab Interpretation Normal (test code = 30591-1) [facility], [id number] 01:07:20 Test Item Value Reference Range Interpretation Comments COVID-19 (SARS-COV-2) Not Detected Not Detected INTERP RETATION: No (test code = 03487-4) detect able levels of SARS-CoV-2 Coronavirus (COVID-19) [...] SARS-CoV-2 mole cular diagnostic assa y utilizes Sink Maker Mediated Amplification ( TMA) technology to r apidly detect the SARS -CoV-2 (COVID-19) viru s from respiratory adriana ples. In accordance w ith the FDA's kamran nce document "Polic y for Diagnostic Test s for Coronavirus Disease-[address] [facility] the Public [facility] Emergency", thi s test was developed, and its performance characteristics were verified by the [facility] molecular diagn ostics laboratory and is authorized for clinical diagno stic use. This labor atory is certified un [place] the Clinical Laboratory Improvement Amendments (CLI A) as qualified to pe rform high complexity clinical labora tory testing. Lab Interpretation Normal (test code = 02662-5) Maged Ruelasronavirus, CoVID-19, [id number] 01:07:20 Test Item Value Reference Range Interpretation Comments COVID-19 (SARS-COV-2) Not Detected Not Detected INTERP RETATION: No (test code = 55590-4) detect able levels of SARS-CoV-2 Coronavirus (COVID-19) [...] SARS-CoV-2 mole cular diagnostic assa y utilizes Sink Maker Mediated Amplification ( TMA) technology to r apidly detect the SARS -CoV-2 (COVID-19) viru s from respiratory adriana ples. In accordance w ith the FDA's kamran nce document "Polic y for Diagnostic Test s for Coronavirus Disease-[address] [facility] the [facility] Emergency", thi s test was developed, and its performance characteristics were verified by the [facility] molecular diagn ostics laboratory and is authorized for clinical diagno stic use. This labor atory is certified un [place] the Clinical Laboratory Improvement Amendments (CLI A) as qualified to pe rform high complexity clinical labora tory testing. Lab Interpretation Normal (test code = 45058-7) Maged Ruelasronavirus, CoVID-19, [id number] 01:07:20 Test Item Value Reference Range Interpretation Comments COVID-19 (SARS-COV-2) Not Detected Not Detected INTERP RETATION: No (test code = 02614-3) detect able levels of SARS-CoV-2 Coronavirus (COVID-19) [...] SARS-CoV-2 mole cular diagnostic assa y utilizes Sink Maker Mediated Amplification ( TMA) technology to r apidly detect the SARS -CoV-2 (COVID-19) viru s from respiratory adriana ples. In accordance w ith the FDA's kamran nce document "Polic y for Diagnostic Test s for Coronavirus Disease-[address] [facility] the [facility] Emergency", thi s test was developed, and its performance characteristics were verified by the [facility] molecular diagn ostics laboratory and is authorized for clinical diagno stic use. This labor atory is certified [place] the Clinical Laboratory Improvement Amendments (CLI A) as qualified to pe rform high complexity clinical labora tory testing. Lab Interpretation Normal (test code = 00507-3) [facility], [id number] 01:07:20 Test Item Value Reference Range Interpretation Comments COVID-19 (SARS-COV-2) Not Detected Not Detected INTERP RETATION: No (test code = 12245-8) detect able levels of SARS-CoV-2 Coronavirus (COVID-19) [...] SARS-CoV-2 mole cular diagnostic assa y utilizes Sink Maker Mediated Amplification ( TMA) technology to r apidly detect the SARS -CoV-2 (COVID-19) viru s from respiratory adriana ples. In accordance w ith the FDA's kamran nce document "Polic y for Diagnostic Test s for Coronavirus Disease-[address] [facility] the [facility] Emergency", thi s test was developed, and its performance characteristics were verified by the [facility] molecular diagn ostics laboratory and is authorized for clinical diagno stic use. This labor atory is certified un [place] the Clinical Laboratory Improvement Amendments (CLI A) as qualified to rform high complexity clinical labora tory testing. Lab Interpretation Normal (test code = 44686-2) [facility], [id number] 01:07:20 Test Item Value Reference Range Interpretation Comments COVID-19 (SARS-COV-2) Not Detected Not Detected INTERP RETATION: No (test code = 81418-1) detect able levels of SARS-CoV-2 Coronavirus (COVID-19) [...] SARS-CoV-2 mole cular diagnostic assa y utilizes Sink Maker Mediated Amplification ( TMA) technology to r apidly detect the SARS -CoV-2 (COVID-19) viru s from respiratory adriana ples. In accordance w ith the FDA's kamran nce document "Polic y for Diagnostic Test s for Coronavirus Disease-[address] [facility] the [facility]", thi s test was developed, and its performance characteristics were verified by the [facility] molecular diagn ostics laboratory and is authorized for clinical diagno stic use. This labor atory is certified un [place] the Clinical Laboratory Improvement Amendments (CLI A) as qualified to pe rform high complexity clinical labora tory testing. Lab Interpretation Normal (test code = 70934-7) [facility] GateCbbvamTVMH-JrV-6 ORF1ab Resp Ql OLENA+[id number] 01:07:20 Test Item Value Reference Range Interpretation Comments Hospitalized? (test No code = 40569-0) ICU? (test code = No 65995-7) Symptomatic as No defined by CDC? (test code = 99447-3) Employed in No Healthcare? (test code = 14659-8) Resident in a No congregate care setting (including nursing homes, residential care for people with intellectual and developmental disabilities, psychiatric treatment facilities, group homes, board and care homes, homeless halfway, foster care or other): (test code = 55417-4) SARS-CoV-2 ORF1ab NOT DETECTED Not Detected INTERPRETA TION: No Resp Ql OLENA+probe detectable levels of (test code = SARS-CoV-2 66798-7) Coronavirus (COVID-19) were present in this patient's [...] SARS-CoV-2 mole cular diagnostic assa y utilizes Sink Maker Mediated Amplification ( TMA) technology to r apidly detect the SARS -CoV-2 (COVID-19) viru s from respiratory adriana ples. In accordance with\\XC2A0\\the FDA's guidance docume nt "Policy for Diagnostic Test s for Coronavirus Disease-2019 du ring the Public [facility] th Emergency", thi s test was developed, and its performance characteristics were verified by the [facility] molecular diagn ostics laboratory and is authorized for clinical diagno stic use. \\XC2A0\\Thi s laboratory is certified under the Clinical Labora tory Improvement Amendments (CLI A) as qualified to pe rform high complexity clinical labora tory testing. [facility] [id number] 08:09:01 Test Item Value Reference Range Interpretation Comments Glucose POC (test code = 58947791) 85 mg/dL 74-106 Lab Interpretation (test code = Normal 66775-9) [facility] [id number] 08:09:01 Test Item Value Reference Range Interpretation Comments Glucose POC (test code = 70165092) 85 mg/dL 74-106 Lab Interpretation (test code = Normal 67197-5) [facility] [id number] 08:09:01 Test Item Value Reference Range Interpretation Comments Glucose POC (test code = 10378247) 85 mg/dL 74-106 Lab Interpretation (test code = Normal 75572-9) [facility] [id number] 08:09:01 Test Item Value Reference Range Interpretation Comments Glucose POC (test code = 27632700) 85 mg/dL 74-106 Lab Interpretation (test code = Normal 96113-5) [facility] [id number] 08:09:01 Test Item Value Reference Range Interpretation Comments Glucose POC (test code = 02290645) 85 mg/dL 74-106 Lab Interpretation (test code = Normal 86015-7) [facility] [id number] 08:09:01 Test Item Value Reference Range Interpretation Comments Glucose POC (test code = 16308858) 85 mg/dL 74-106 Lab Interpretation (test code = Normal 98785-9) [facility] [id number] 08:09:01 Test Item Value Reference Range Interpretation Comments Glucose POC (test code = 92746358) 85 mg/dL 74-106 Lab Interpretation (test code = Normal 33097-0) [facility] [id number] 08:09:01 Test Item Value Reference Range Interpretation Comments Glucose POC (test code = 18066525) 85 mg/dL 74-106 Lab Interpretation (test code = Normal 56199-3) [facility] [id number] 08:09:01 Test Item Value Reference Range Interpretation Comments Glucose POC (test code = 62932939) 85 mg/dL 74-106 Lab Interpretation (test code = Normal 19670-6) [facility] [id number] 08:09:01 Test Item Value Reference Range Interpretation Comments Glucose POC (test code = 94423025) 85 mg/dL 74-106 Lab Interpretation (test code = Normal 70610-3) [facility] [id number] 08:09:01 Test Item Value Reference Range Interpretation Comments Glucose POC (test code = 09906318) 85 mg/dL 74-106 Lab Interpretation (test code = Normal 96178-8) [facility] [id number] 08:09:01 Test Item Value Reference Range Interpretation Comments Glucose POC (test code = 60456639) 85 mg/dL 74-106 Lab Interpretation (test code = Normal 80992-4) [facility] [id number] 08:09:01 Test Item Value Reference Range Interpretation Comments Glucose POC (test code = 64499221) 85 mg/dL 74-106 Lab Interpretation (test code = Normal 40785-2) [facility] [id number] 08:09:01 Test Item Value Reference Range Interpretation Comments Glucose POC (test code = 86494942) 85 mg/dL 74-106 Lab Interpretation (test code = Normal 39425-5) [facility] [id number] 08:09:01 Test Item Value Reference Range Interpretation Comments Glucose POC (test code = 12705019) 85 mg/dL 74-106 Lab Interpretation (test code = Normal 38495-9) [facility] [id number] 08:09:01 Test Item Value Reference Range Interpretation Comments Glucose POC (test code = 87327809) 85 mg/dL 74-106 Lab Interpretation (test code = Normal 91636-3) [facility] [id number] 08:09:01 Test Item Value Reference Range Interpretation Comments Glucose POC (test code = 31632421) 85 mg/dL 74-106 Lab Interpretation (test code = Normal 53034-4) [facility] [id number] 08:09:01 Test Item Value Reference Range Interpretation Comments Glucose POC (test code = 31646865) 85 mg/dL 74-106 Lab Interpretation (test code = Normal 08828-5) [facility] GLUCOSE POC docked [id number] 08:09:01 Test Item Value Reference Range Interpretation Comments Glucose POC (test code = 76429951) 85 mg/dL 74-106 Lab Interpretation (test code = Normal 18412-7) [facility] GateZcnucoUGJP-RjX-4 ORF1ab Resp Ql OLENA+[id number] 23:25:40 Test Item Value Reference Range Interpretation Comments Hospitalized? (test No code = 34523-9) ICU? (test code = No 33821-3) Symptomatic as No defined by CDC? (test code = 55098-9) Employed in No Healthcare? (test code = 09994-6) Resident in a No congregate care setting (including nursing homes, residential care for people with intellectual and developmental disabilities, psychiatric treatment facilities, group homes, board and care homes, homeless halfway, foster care or other): (test code = 53915-1) SARS-CoV-2 ORF1ab NOT DETECTED Not Detected INTERPRETA TION: No Resp Ql OLENA+probe detectable levels of (test code = SARS-CoV-2 14223-3) Coronavirus (COVID-19) were present in this patient's [...] SARS-CoV-2 mole cular diagnostic assa y utilizes Sink Maker Mediated Amplification ( TMA) technology to r apidly detect the SARS -CoV-2 (COVID-19) viru s from respiratory adriana ples. In accordance with\\XC2A0\\the FDA's guidance docume nt "Policy for Diagnostic Test s for Coronavirus Disease-2019 du [facility] th Emergency", ginger s test was developed, and its performance characteristics were verified by the [facility] molecular diagn ostics laboratory and is authorized for clinical diagno stic use. \\XC2A0\\Ginger s laboratory is certified under the Clinical Labora tory Improvement Amendments (CLI A) as qualified to pe rform high complexity clinical labora tory testing. 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 Vincent HospitalOn2 Technologies [place] [address] Lead [id number] 15:46:1012 LEAD EKG FOR [facility] Test Date: 1397-33-74Com Name: DORA JOSEPH Department: 5ECIPatient ID: [id number] 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: [id number]: 1970 Requested By: DARRION Cho Number: [id number] Reading MD: Rene Patterson MeasurementsIntervals [place] Rate: 61 P: 72PR: 152 QRS: 55QRSD: 106 T: 63QT: 398 QTc: 400 Interpretive StatementsSINUS RHYTHMPOSSIBLE RIGHT PANKAJ TRICULAR CONDUCTION DELAY [RSR (QR) IN V1/V2]Electronically Signed On 01-22-2022 8:30:45 CDT by MobiWorkSloop Memorial HospitalAppbymeDebbyLucid HoldingsChi St. Vincent HospitalOn2 Technologies Ywnsfd76 Lead [id number] 15:46:1012 LEAD EKG FOR [facility] Test Date: 1666-67-28Bad Name: DORA JOSEPH Department: 5ECIPatient ID: [id number] 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: [id number]: 1970 Requested By: DARRION Cho Number: [id number] Reading MD: Rene Patterson MeasurementsIntervals [place] Rate: 61 P: 72PR: 152 QRS: 55QRSD: 106 T: 63QT: 398 QTc: 400 Interpretive StatementsSINUS RHYTHMPOSSIBLE RIGHT VENTRICULAR CONDUCTION DELAY [RSR (QR) IN V1/V2]Electronically Signed On 01-22-2022 8:30:45 CDT by Rene [employer]12 Lead [id number] 15:46:1012 LEAD EKG FOR [facility] Test Date: 4557-60-25Ggb Name: DORA JOSEPH Department: 5EPatient ID: [id number] 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: [id number]: 1970 Requested By: DARRION Cho Number: [id number] Reading MD: Rene Patterson MeasurementsIntervals [place] Rate: 61 P: 72PR: 152 QRS: 55QRSD: 106 T: 63QT: 398 QTc: 400 Interpretive StatementsSINUS RHYTHMPOSSIBLE RIGHT VENTRICULAR CONDUCTION DELAY [RSR (QR) IN V1/V2]Electronically Signed On 01-22-2022 8:30:45 CDT by Rene [employer] ([employer])EdtripsChi St. Vincent HospitalRimini Street12 Lead [id number] 15:46:1012 LEAD EKG FOR [facility] Test Date: 1666-00-75Gqc Name: DORA JOSEPH Department: 5ECIPatient ID: [id number] 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: [id number]: 1970 Requested By: DARRION Cho Number: [id number] Reading : Rene Patterson MeasurementsIntervals [place] Rate: 61 P: 72PR: 152 QRS: 55QRSD: 106 T: 63QT: 398 QTc: 400 Interpretive StatementsSINUS RHYTHMPOSSIBLE RIGHT VENTRICULAR CONDUCTION DELAY [RSR (QR) IN V1/V2]Electronically Signed On 01-22-2022 8:30:45 CDT by Rene [employer] ([employer])[place] [address] Lead [id number] 15:46:1012 LEAD EKG FOR [facility] Test Date: 5277-17-98Ina Name: DORA JOSEPH Department: 5ECIPatient ID: [id number] 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: [id number]: 1970 Requested By: DARRION Cho Number: [id number] Reading MD: Rene Patterson MeasurementsIntervals [place] Rate: 61 P: 72PR: 152 QRS: 55QRSD: 106 T: 63QT: 398 QTc: 400 Interpretive StatementsSINUS RHYTHMPOSSIBLE RIGHT VENTR ICULAR CONDUCTION DELAY [RSR (QR) IN V1/V2]Electronically Signed On 01-22-2022 8:30:45 CDT by Rene DebbyMelissa [place] [address] Lead [id number] 15:46:1012 LEAD EKG FOR [facility] Test Date: 3991-19-23Ogq Name: DORA JOSEPH Department: 5EPatient ID: [id number] 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: [id number]: 1970 Requested By: DARRION Cho Number: [id number] Reading MD: Rene Patterson MeasurementsIntervals [place] Rate: 61 P: 72PR: 152 QRS: 55QRSD: 106 T: 63QT: 398 QTc: 400 Interpretive StatementsSINUS RHYTHMPOSSIBLE RIGHT VENTRICULAR CONDUCTION DELAY [RSR (QR) IN V1/V2]Electronically Signed On 01-22-2022 8:30:45 CDT by Rene PaezDebbyMOCompaMary [place] [address] Lead [id number] 15:46:1012 LEAD EKG FOR [facility] Test Date: 2639-23-95Sag Name: DORA JOSEPH Department: 5EPatient ID: [id number] 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: [id number]: 1970 Requested By: DARRION Cho Number: [id number] Reading MD: Rene Patterson MeasurementsIntervals [place] Rate: 61 P: 72PR: 152 QRS: 55QRSD: 106 T: 63QT: 398 QTc: 400 Interpretive StatementsSINUS RHYTHMPOSSIBLE RIGHT VENTRICULAR CONDUCTION DELAY [RSR (QR) IN V1/V2]Electronically Signed On 01-22-2022 8:30:45 CDT by Rene SadiMSComparis Gumisb00 Lead [id number] 15:46:1012 LEAD EKG FOR [facility] Test Date: 9820-51-81Sxs Name: DORA JOSEPH Department: 5ECIPatient ID: [id number] 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: [id number]: 1970 Requested By: DARRION Cho Number: [id number] Reading MD: Rene Patterson MeasurementsIntervals [place] Rate: 61 P: 72PR: 152 QRS: 55QRSD: 106 T: 63QT: 398 QTc: 400 Interpretive StatementsSINUS RHYTHMPOSSIBLE RIGHT VENTRICULAR CONDUCTION DELAY [RSR (QR) IN V1/V2]Electronically Signed On 01-22-2022 8:30:45 CDT by Rene Leonard Tttlkv67 Lead [id number] 15:46:1012 LEAD EKG FOR [facility] Test Date: 8406-56-60Ums Name: DORA JOSEPH Department: 5ECIPatient ID: [id number] 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: [id number]: 1970 Requested By: DARRION Cho Number: [id number] Reading MD: Rene Patterson MeasurementsIntervals [place] Rate: 61 P: 72PR: 152 QRS: 55QRSD: 106 T: 63QT: 398 QTc: 400 Interpretive StatementsSINUS RHYTHMPOSSIBLE RIGHT VENTRICULAR CONDUCTION DELAY [RSR (QR) IN V1/V2]Electronically Signed On 01-22-2022 8:30:45 CDT by Rene AvitiaLucid HoldingsMaged Qjaojl02 Lead [id number] 15:46:1012 LEAD EKG FOR [facility] Test Date: 0931-36-74Axb Name: DORA JOSEPH Department: 5ECIPatient ID: [id number] Room: Gender: 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: [id number]: 1970 Requested By: DARRION Cho Number: [id number] Reading MD: Rene Patterson MeasurementsIntervals [place] Rate: 61 P: 72PR : 152 QRS: 55QRSD: 106 T: 63QT: 398 QTc: 400 Interpretive StatementsSINUS RHYTHMPOSSIBLE RIGHT VENTRICULAR CONDUCTION DELAY [RSR (QR) IN V1/V2]Electronically Signed On 01-22-2022 8:30:45 CDT by Rene SadiLucid HoldingsCompaRimini Street12 Lead [id number] 15:46:1012 LEAD EKG FOR [facility] Test Date: 1926-06-95Phu Name: DORA JOSEPH Department: 5ECIPatient ID: [id number] Room: Gender: 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: [id number]: 1970 Requested By: DARRION Cho Number: [id number] Reading MD: Rene Patterson MeasurementsIntervals [place] Rate: 61 P: 72PR: 152 QRS: 55QRSD: 106 T: 63QT: 398 QTc: 400 Interpretive StatementsSINUS RHYTHMPOSSIBLE RIGHT VENTRICULAR CONDUCTION DELAY [RSR (QR) IN V1/V2]Electronically Signed On 01-22-2022 8:30:45 CDT by ReneNov[facility] Thomasville Medical CenterResponsible City12 Lead [id number] 15:46:1012 LEAD EKG FOR [facility] Test Date: 4479-29-56Kyk Name: DORA JOSEPH Department: 5ECIPatient ID: [id number] 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: [id number]: 1970 Requested By: DARRION Cho Number: [id number] Reading MD: Rene Patterson MeasurementsIntervals [place] Rate: 61 P: 72PR: 152 QRS: 55QRSD: 106 T: 63QT: 398 QTc: 400 Interpretive StatementsSINUS RHYTHMPOSSIBLE RIGHT VENTRI CULAR CONDUCTION DELAY [RSR (QR) IN V1/V2]Electronically Signed On 01-22-2022 8:30:45 CDT by Rene AvitiaLucid HoldingsCompaRimini Street12 Lead [id number] 15:46:1012 LEAD EKG FOR [facility] Test Date: 0088-98-93Snk Name: DORA JOSEPH Department: 5ECIPatient ID: [id number] 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: [id number]: 1970 Requested By: DARRION Cho Number: [id number] Reading MD: Rene Patterson MeasurementsIntervals [place] Rate: 61 P: 72PR: 152 QRS: 55QRSD: 106 T: 63QT: 398 QTc: 400 Interpretive StatementsSINUS RHYTHMPOSSIBLE RIGHT VENTRICULAR CONDUCTION DELAY [RSR (QR) IN V1/V2]Electronically Signed On 01-22-2022 8:30:45 CDT by Rene AvitiaLucid HoldingsCompaRimini Street12 Lead [id number] 15:46:1012 LEAD EKG FOR [facility] Test Date: 2083-32-89Phs Name: DORA JOSEPH Department: 5ECIPatient ID: [id number] 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: [id number]: 1970 Requested By: DARRION Cho Number: [id number] Reading MD: Rene Patterson MeasurementsIntervals [place] Rate: 61 P: 72PR: 152 QRS: 55QRSD: 106 T: 63QT: 398 QTc: 400 Interpretive StatementsSINUS RHYTHMPOSSIBLE RIGHT VENTRICULAR CONDUCTION DELAY [RSR (QR) IN V1/V2]Electronically Signed On 01-22-2022 8:30:45 CDT by Rene AvitiaLucid HoldingsCompaRimini Street12 Lead [id number] 15:46:1012 LEAD EKG FOR [facility] Test Date: 9958-76-34Oqb Name: DORA JOSEPH Department: 5EPatient ID: [id number] 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: [id number]: 1970 Requested By: DARRION Cho Number: [id number] Reading MD: Rene Patterson MeasurementsIntervals [place] Rate: 61 P: 72PR: 152 QRS: 55QRSD: 106 T: 63QT: 398 QTc: 400 Interpretive StatementsSINUS RHYTHMPOSSIBLE RIGHT VENTRICULAR CONDUCTION DELAY [RSR (QR) IN V1/V2]Electronically Signed On 01-22-2022 8:30:45 CDT by Rene Valle [place] [address] Lead [id number] 15:46:1012 LEAD EKG FOR [facility] Test Date: 2932-12-56Xti Name: DORA JOSEPH Department: 5EPatient ID: [id number] 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: [id number]: 1970 Requested By: DARRION Cho Number: [id number] Reading MD: Rene Patterson MeasurementsIntervals [place] Rate: 61 P: 72PR: 152 QRS: 55QRSD: 106 T: 63QT: 398 QTc: 400 Interpretive StatementsSINUS RHYTHMPOSSIBLE RIGHT VENT RICULAR CONDUCTION DELAY [RSR (QR) IN V1/V2]Electronically Signed On 01-22-2022 8:30:45 CDT by Rene Valle Xmqjqb43 Lead [id number] 15:46:1012 LEAD EKG FOR [facility] Test Date: 2258-40-95Fro Name: DORA JOSEPH Department: 5ECIPatient ID: [id number] 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: [id number]: 1970 Requested By: DARRION Cho Number: [id number] Reading MD: Rene Patterson MeasurementsIntervals [place] Rate: 61 P: 72PR: 152 QRS: 55QRSD: 106 T: 63QT: 398 QTc: 400 Interpretive StatementsSINUS RHYTHMPOSSIBLE RIGHT VENTRICULAR CONDUCTION DELAY [RSR (QR) IN V1/V2]Electronically Signed On 01-22-2022 8:30:45 CDT by Rene Valle [facility] 1+2 Ab+HIV1 p24 Ag SerPl Ql [id number] 07:02:58 Test Item Value Reference Range Interpretation Comments HIV 1+2 Ab+HIV1 p24 Ag SerPl Ql IA NEGATIVE Negative (test code = 98418-1) [id number] 21:23:2512 LEAD EKG FOR [facility] Test Date: 1643-55-16Lmh Name: DORA JOSEPH Department: 5520Patient ID: [id number] Room: 0N36Xglwmq: 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1970 Requested By: KARIN BASSETT AOrder Number: [id number] Reading MD: Chiara Calles MeasurementsIntervals [place] Rate: 72 P: 90PR: 157 QRS: 87QRSD: 105 T: 90QT: 360 QTc: 384 Interpretive StatementsSINUS RHYTHMPOSSIBLE RIGHT VENTRICULAR CONDUCTION DELAY [RSR (QR) IN V1/V2]EARLY REPOLARIZATION [ST ELEVATION WITH NORMALLY INFLECTED T- WAVE]Electronically Signed On 01-17-2022 13:02:30 CDT by Chiara [facility] French CenterPECO PalletCurt[place] [address]MvtkadSPL2908-29-60 21:23:2512 LEAD EKG FOR [facility] Test Date: 0304-29-65Gwv Name: DORA JOSEPH Department: 5520Patient ID: [id number] Room: 9A24Wvgfqd: 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1970 Requested By: JESSICA AOrder Number: [id number] Reading MD: Chiara Calles MeasurementsIntervals [place] Rate: 72 P: 90PR:157 QRS: 87QRSD: 105 T: 90QT: 360 QTc: 384 Interpretive StatementsSINUS RHYTHMPOSSIBLE RIGHT VENTRICULAR CONDUCTION DELAY [RSR (QR) IN V1/V2]EARLY REPOLARIZATION [ST ELEVATION WITH NORMALLY INFLECTED T- WAVE]Electronically Signed On 01-17-2022 13:02:30 CDT by [place] [id number] 21:23:2512 LEAD EKG FOR [facility] Test Date: 2778-18-65Ppd Name: DORA JOSEPH Department: 5520Patient ID: [id number] Room: 9E20Lxzagg: 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 Vincent HospitalRimini StreetQfkgshBGR1649-97-05 21:23:2512 LEAD EKG FOR [facility] Test Date: 4205-39-55Jae Name: DORA JOSEPH Department: 5520Patient ID: [id number] Room: 1L06Srqwfj: 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1970 Requested By: KARIN BASSETT AOrder Number: [id number] Reading MD: Chiara Calles MeasurementsIntervals [place] Rate: 72 P: 90PR:157 QRS: 87QRSD: 105 T: 90QT: 360 QTc: 384 Interpretive StatementsSINUS RHYTHMPOSSIBLE RIGHT VENTRICULAR CONDUCTION DELAY [RSR (QR) IN V1/V2]EARLY REPOLARIZATION [ST ELEVATION WITH NORMALLY INFLECTED T- WAVE]Electronically Signed On 01-17-2022 13:02:30 CDT by Card Islerobert Trans Tas[place] ResourcesCurtis [place] [address]XzwgiiIYS0338-82-42 21:23:2512 LEAD EKG FOR [facility] Test Date: 0221-90-77Rhr Name: DORA JOSEPH Department: 5520Patient ID: [id number] Room: 0W99Lfdbwz: 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1970 Requested By: JESSICA AOrder Number: [id number] Reading MD: Chiara Calles MeasurementsIntervals [place] Rate: 72 P: 90PR: 157 QRS: 87QRSD: 105 T: 90QT: 360 QTc: 384 Interpretive StatementsSINUS RHYTHMPOSSIBLE RIGHT VENTRICULAR CONDUCTION DELAY [RSR (QR) IN V1/V2]EARLY REPOLARIZATION [ST ELEVATION WITH NORMALLY INFLECTEDT- WAVE]Electronically Signed On 01-17-2022 13:02:30 CDT by [facility] HospitalGigsWizEKG2022-05-26 21:23:2512 LEAD EKG FOR [facility] Test Date: 8829-99-47Ddf Name: DORA JOSEPH Department: 5520Patient ID: [id number] Room: 6N47Gwzzvb: 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1970 Requested By: KARIN BASSETT AOrder Number: [id number] Reading MD: Chiara Calles MeasurementsIntervals [place] Rate: 72 P: 90PR:157 QRS: 87QRSD: 105 T: 90QT: 360 QTc: 384 Interpretive StatementsSINUS RHYTHMPOSSIBLE RIGHT VENTRICULAR CONDUCTION DELAY [RSR (QR) IN V1/V2]EARLY REPOLARIZATION [ST ELEVATION WITH NORMALLY INFLECTED T- WAVE]Electronically Signed On 01-17-2022 13:02:30 CDT by [facility] HospitalDigital PerformanceChi St. Vincent HospitalRimini StreetJhscxaFCC4527-68-08 21:23:2512 LEAD EKG FOR [facility] Test Date: 3126-10-07Rbp Name: DORA JOSEPH Department: 5520Patient ID: [id number] Room: 1M17Dmjwwl: 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1970 Requested By: KARIN BASSETT AOrder Number: [id number] Reading MD: Chiara Calles MeasurementsIntervals [place] Rate: 72 P: 90PR:157 QRS: 87QRSD: 105 T: 90QT: 360 QTc: 384 Interpretive StatementsSINUS RHYTHMPOSSIBLE RIGHT VENTRICULAR CONDUCTION DELAY [RSR (QR) IN V1/V2]EARLY REPOLARIZATION [ST ELEVATION WITH NORMALLY INFLECTED T- WAVE]Electronically Signed On 01-17-2022 13:02:30 CDT by [facility] Trans Tasman ResourcesChi St. Vincent HospitalOn2 Technologies AugpymXTM5042-42-68 21:23:2512 LEAD EKG FOR [facility] Test Date: 5791-65-95Npy Name: DORA JOSEPH Department: 5520Patient ID: [id number] Room: 7O76Ikhzxk: 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1970 Requested By: JESSICA AOrder Number: [id number] Reading MD: Chiara Calles MeasurementsIntervals [place] Rate: 72 P: 90PR:157 QRS: 87QRSD: 105 T: 90QT: 360 QTc: 384 Interpretive StatementsSINUS RHYTHMPOSSIBLE RIGHT VENTRICULAR CONDUCTION DELAY [RSR (QR) IN V1/V2]EARLY REPOLARIZATION [ST ELEVATION WITH NORMALLY INFLECTED T- WAVE]Electronically Signed On 01-17-2022 13:02:30 CDT by [facility] DietBetterMichael Ville 19396022-05-26 21:23:2512 LEAD EKG FOR [facility] Test Date: 3011-42-11Zcv Name: DORA JOSEPH Department: 5520Patient ID: [id number] Room: 9H12Gdcoqr: 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1970 Requested By: KARIN BASSETT AOrder Number: [id number] Reading MD: Chiara Calles MeasurementsIntervals [place] Rate: 72 P: 90PR:157 QRS: 87QRSD: 105 T: 90QT: 360 QTc: 384 Interpretive StatementsSINUS RHYTHMPOSSIBLE RIGHT VENTRICULAR CONDUCTION DELAY [RSR (QR) IN V1/V2]EARLY REPOLARIZATION [ST ELEVATION WITH NORMALLY INFLECTED T- WAVE]Electronically Signed On 01-17-2022 13:02:30 CDT by [facility] HospitalDigital PerformanceCurtis V[place] [address]IonttbMPW5084-68-16 21:23:2512 LEAD EKG FOR [facility] Test Date: 5691-67-83Tqd Name: DORA RODERFIELD Department: 5520Patient ID: [id number] Room: 2R65Nwtlxy: 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1970 Requested By: KARIN BASSETT AOrder Number: [id number] Reading MD: Chiaar Calles MeasurementsIntervals [place] Rate: 72 P: 90PR: 157 QRS: 87QRSD: 105 T: 90QT: 360 QTc: 384 Interpretive StatementsSINUS RHYTHMPOSSIBLE RIGHT VENTRICULAR CONDUCTION DELAY [RSR (QR) IN V1/V2]EARLY REPOLARIZATION [ST ELEVATION WITH NORMALLY INFLECTED T-W AVE]Electronically Signed On 01-17-2022 13:02:30 CDT by [place] 88341022-05-26 21:23:2512 LEAD EKG FOR [facility] Test Date: 7449-81-71Rkc Name: DORA JOSEPH Department: 5520Patient ID: [id number] Room: 6N94Dveuuu: 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1970 Requested By: KARIN BASSETT AOrder Number: [id number] Reading MD: Chiara Calles MeasurementsIntervals [place] Rate: 72 P: 90PR: 157 QRS: 87QRSD: 105 T: 90QT: 360 QTc: 384 Interpretive StatementsSINUS RHYTHMPOSSIBLE RIGHT VENTRICULAR CONDUCTION DELAY [RSR (QR) IN V1/V2]EARLY REPOLARIZATION [ST ELEVATION WITH NORMALLY INFLECTED T- WAVE]Electronically Signed On 01-17-2022 13:02:30 CDT by [facility] ClevelandPECO PalletCurtis [place] [address]CxailhHGL5854-53-07 21:23:2512 LEAD EKG FOR [facility] Test Date: 1504-47-04Xfy Name: DORA JOSEPH Department: 5520Patient ID: [id number] Room: 6N44Eqnopl: 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1970 Requested By: KARIN BASSETT AOrder Number: [id number] Reading MD: Chiara Calles MeasurementsIntervals [place] Rate: 72 P: 90PR: 157 QRS: 87QRSD: 105 T: 90QT: 360 QTc: 384 Interpretive StatementsSINUS RHYTHMPOSSIBLE RIGHT VENTRICULAR CONDUCTION DELAY [RSR (QR) IN V1/V2]EARLY REPOLARIZATION [ST ELEVATION WITH NORMALLY INFLECTED T-W AVE]Electronically Signed On 01-17-2022 13:02:30 CDT by [facility] ClevelandPECO PalletCurtis [place] [address]ApxcvxSSU7176-37-98 21:23:2512 LEAD EKG FOR [facility] Test Date: 6252-71-61Jpi Name: DORA JOSEPH Department: 5520Patient ID: [id number] Room: 4M91Vyyhhm: 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1970 Requested By: JESSICA AOrder Number: [id number] Reading MD: Chiara Calles MeasurementsIntervals [place] Rate: 72 P: 90PR: 157 QRS: 87QRSD: 105 T: 90QT: 360 QTc: 384 Interpretive StatementsSINUS RHYTHMPOSSIBLE RIGHT VENTRICULAR CONDUCTION DELAY [RSR (QR) IN V1/V2]EARLY REPOLARIZATION [ST ELEVATION WITH NORMALLY INFLECTED T- WAVE]Electronically Signed On 01-17-2022 13:02:30 CDT by [facility] Trans [place] ResourcesWashington Rural Health CollaborativeRjjxdtTSI7849-39-72 21:23:2512 LEAD EKG FOR [facility] Test Date: 9798-75-14Qpb Name: DORA PAEZRY Department: 5520Patient ID: [id number] Room: 1T01Rekkio: 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1970 Requested By: KARIN BASSETT AOrder Number: [id number] Reading MD: Chiara Calles MeasurementsIntervals [place] Rate: 72 P: 90PR: 157 QRS: 87QRSD: 105 T: 90QT: 360 QTc: 384 Interpretive StatementsSINUS RHYTHMPOSSIBLE RIGHT VENTRICULAR CONDUCTION DELAY [RSR (QR) IN V1/V2]EARLY REPOLARIZATION [ST ELEVATION WITH NORMALLY INFLECTED T- WAVE]Electronically Signed On 01-17-2022 13:02:30 CDT by [facility] Trans [facility] ResourcesWashington Rural Health CollaborativeCyjciwUBI1016-93-72 21:23:2512 LEAD EKG FOR [facility] Test Date: 8828-26-03Ujc Name: DORA JOSEPH Department: 5520Patient ID: [id number] Room: 2L43Hipdoy: 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1970 Requested By: KARIN BASSETT AOrder Number: [id number] Reading MD: Chiara Calles MeasurementsIntervals [place] Rate: 72 P: 90PR:157 QRS: 87QRSD: 105 T: 90QT: 360 QTc: 384 Interpretive StatementsSINUS RHYTHMPOSSIBLE RIGHT VENTRICULAR CONDUCTION DELAY [RSR (QR) IN V1/V2]EARLY REPOLARIZATION [ST ELEVATION WITH NORMALLY INFLECTED T- WAVE]Electronically Signed On 01-17-2022 13:02:30 CDT by [facility] Trans [facility] ResourcesWashington Rural Health CollaborativeFauglyCDP8452-45-78 21:23:2512 LEAD EKG FOR [facility] Test Date: 9738-48-24Mxc Name: DORA JOSEPH Department: 5520Patient ID: [id number] Room: 4N53Dgapnc: 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1970 Requested By: KARIN BASSETT AOrder Number: [id number] Reading MD: Chiara Calles MeasurementsIntervals [place] Rate: 72 P: 90PR:157 QRS: 87QRSD: 105 T: 90QT: 360 QTc: 384 Interpretive StatementsSINUS RHYTHMPOSSIBLE RIGHT VENTRICULAR CONDUCTION DELAY [RSR (QR) IN V1/V2]EARLY REPOLARIZATION [ST ELEVATION WITH NORMALLY INFLECTED T- WAVE]Electronically Signed On 01-17-2022 13:02:30 CDT by [facility] HospitalDigital PerformanceCurtis V[place] [address]PuttdyWFK6155-71-88 21:23:2512 LEAD EKG FOR [facility] Test Date: 3087-94-02Kld Name: DORA JOSEPH Department: 5520Patient ID: [id number] Room: 5O97Vfzuqk: 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1970 Requested By: KARIN BASSETT AOrder Number: [id number] Reading MD: Chiara Calles MeasurementsIntervals [place] Rate: 72 P: 90PR: 157 QRS: 87QRSD: 105 T: 90QT: 360 QTc: 384 Interpretive StatementsSINUS RHYTHMPOSSIBLE RIGHT VENTRICULAR CONDUCTION DELAY [RSR (QR) IN V1/V2]EARLY REPOLARIZATION [ST ELEVATION WITH NORMALLY INFLECTED T- WAVE]Electronically Signed On 01-17-2022 13:02:30 CDT by [facility] HospitalDigital PerformanceWashington Rural Health CollaborativeExehhkIBO6280-23-24 21:23:2512 LEAD EKG FOR [facility] Test Date: 0749-25-13Qxj Name: DORA JOSEPH Department: 5520Patient ID: [id number] Room: 9A89Nxadek: 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1970 Requested By: KARIN BASSETT AOrder Number: [id number] Reading MD: Chiara Calles MeasurementsIntervals [place] Rate: 72 P: 90PR:157 QRS: 87QRSD: 105 T: 90QT: 360 QTc: 384 Interpretive StatementsSINUS RHYTHMPOSSIBLE RIGHT VENTRICULAR CONDUCTION DELAY [RSR (QR) IN V1/V2]EARLY REPOLARIZATION [ST ELEVATION WITH NORMALLY INFLECTED T- WAVE]Electronically Signed On 01-17-2022 13:02:30 CDT by Mission Control TechnologiesEKG2022-05-26 21:23:2512 LEAD EKG FOR [facility] Test Date: 8201-92-14Wcm Name: DORA JOSEPH Department: 5520Patient ID: [id number] Room: 7D11Itmlpr: 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 (test No code = 12889-6) ICU? (test code = No 70375-2) Symptomatic as No defined by CDC? (test code = 48880-4) Employed in No Healthcare? (test code = 90992-0) Resident in a No congregate care setting (including nursing homes, residential care for people with intellectual and developmental disabilities, psychiatric treatment facilities, group homes, board and care homes, homeless halfway, foster care or other): (test code = 00423-1) SARS-CoV-2 ORF1ab NOT DETECTED Not Detected INTERPRETA TION: No Resp Ql OLENA+probe detectable levels of (test code = SARS-CoV-2 71868-7) Coronavirus (COVID-19) were present in this patient's [...] SARS-CoV-2 mole cular diagnostic assa y utilizes Sink Maker Mediated Amplification ( TMA) technology to r apidly detect the SARS -CoV-2 (COVID-19) viru s from respiratory adriana ples. In accordance with\\XC2A0\\the FDA's guidance docume nt "Policy for Diagnostic Test s for Coronavirus Disease-2019 du [facility] the Public Heal th Emergency", ginger s test was developed, and its performance characteristics were verified by the [facility] molecular diagn ostics laboratory and is authorized for clinical diagno stic use. \\XC2A0\\Thi s laboratory is certified under the Clinical Labora tory Improvement Amendments (CLI A) as qualified to pe rform high complexity clinical labora tory testing. [facility] CREATININE POC docked izlrxa4179-04-18 13:57:55 Test Item Value Reference Range Interpretation Comments Creatinine POC (test 2.4 mg/dL 0.6-1.3 H Physici an Notified code = 88091464) eGFR If non- Am 30 See_Comment L [Aut omated message] (test code = 44848795) The s ystem which generated this result transmit dain reference range : >=90 mL/min/1.7 3 m2. The reference r meredith was not used to interpret this result as normal/abnormal . eGFR If Am (test 35 See_Comment L [A utomated message] code = 02934694) The system which generated this result transmit dain reference range : >=90 mL/min/1.7 3 m2. The reference r meredith was not used to interpret this result as normal/abnormal . Lab Interpretation (test Abnormal code = 58422-0) [facility] CREATININE POC docked usfngz0389-41-70 13:57:55 Test Item Value Reference Range Interpretation Comments Creatinine POC (test 2.4 mg/dL 0.6-1.3 H Physici an Notified code = 69286988) eGFR If non- Am 30 See_Comment L [Aut omated message] (test code = 63430666) The s ystem which generated this result transmit dain reference range : >=90 mL/min/1.7 3 m2. The reference r meredith was not used to interpret this result as normal/abnormal . eGFR If Am (test 35 See_Comment L [A utomated message] code = 96201781) The system which generated this result transmit dain reference range : >=90 mL/min/1.7 3 m2. The reference r meredith was not used to interpret this result as normal/abnormal . Lab Interpretation (test Abnormal code = 57953-6) [facility] CREATININE POC docked narvlk7774-94-12 13:57:55 Test Item Value Reference Range Interpretation Comments Creatinine POC (test 2.4 mg/dL 0.6-1.3 H Physici an Notified code = 49177820) eGFR If non- Am 30 See_Comment L [Aut omated message] (test code = 73239800) The s ystem which generated this result transmit dain reference range : >=90 mL/min/1.7 3 m2. The reference r meredith was not used to interpret this result as normal/abnormal . eGFR If Am (test 35 See_Comment L [A utomated message] code = 90550068) The system which generated this result transmit dain reference range : >=90 mL/min/1.7 3 m2. The reference r meredith was not used to interpret this result as normal/abnormal . Lab Interpretation (test Abnormal code = 33616-2) [facility] CREATININE POC docked rhpdct5298-10-79 13:57:55 Test Item Value Reference Range Interpretation Comments Creatinine POC (test 2.4 mg/dL 0.6-1.3 H Physici an Notified code = 59895394) eGFR If non- Am 30 See_Comment L [Aut omated message] (test code = 21649881) The s ystem which generated this result transmit dain reference range : >=90 mL/min/1.7 3 m2. The reference r meredith was not used to interpret this result as normal/abnormal . eGFR If Am (test 35 See_Comment L [A utomated message] code = 50170655) The system which generated this result transmit dain reference range : >=90 mL/min/1.7 3 m2. The reference r meredith was not used to interpret this result as normal/abnormal . Lab Interpretation (test Abnormal code = 02575-1) [facility] gpujmb6340-66-68 13:57:55 Test Item Value Reference Range Interpretation Comments Creatinine POC (test 2.4 mg/dL 0.6-1.3 H Physici an Notified code = 81360103) eGFR If non- Am 30 See_Comment L [Aut omated message] (test code = 37492622) The s ystem which generated this result transmit dain reference range : >=90 mL/min/1.7 3 m2. The reference r meredith was not used to interpret this result as normal/abnormal . eGFR If Am (test 35 See_Comment L [A utomated message] code = 45583373) The system which generated this result transmit dain reference range : >=90 mL/min/1.7 3 m2. The reference r meredith was not used to interpret this result as normal/abnormal . Lab Interpretation (test Abnormal code = 23115-5) [facility] CREATININE POC docked [id number] 13:57:55 Test Item Value Reference Range Interpretation Comments Creatinine POC (test 2.4 mg/dL 0.6-1.3 H Physici an Notified code = 01085337) eGFR If non- Am 30 See_Comment L [Aut omated message] (test code = 69906474) The s ystem which generated this result transmit dain reference range : >=90 mL/min/1.7 3 m2. The reference r meredith was not used to interpret this result as normal/abnormal . eGFR If Am (test 35 See_Comment L [A utomated message] code = 67922627) The system which generated this result transmit dain reference range : >=90 mL/min/1.7 3 m2. The reference r meredith was not used to interpret this result as normal/abnormal . Lab Interpretation (test Abnormal code = 60453-3) [facility] [id number] 13:57:55 Test Item Value Reference Range Interpretation Comments Creatinine POC (test 2.4 mg/dL 0.6-1.3 H Physici an Notified code = 24092804) eGFR If non- Am 30 See_Comment L [Aut omated message] (test code = 44773974) The s ystem which generated this result transmit dain reference range : >=90 mL/min/1.7 3 m2. The reference r meredith was not used to interpret this result as normal/abnormal . eGFR If Am (test 35 See_Comment L [A utomated message] code = 77696839) The system which generated this result transmit dain reference range : >=90 mL/min/1.7 3 m2. The reference r meredith was not used to interpret this result as normal/abnormal . Lab Interpretation (test Abnormal code = 54989-8) [facility] [id number] 13:57:55 Test Item Value Reference Range Interpretation Comments Creatinine POC (test 2.4 mg/dL 0.6-1.3 H Physici an Notified code = 42415106) eGFR If non- Am 30 See_Comment L [Aut omated message] (test code = 25612600) The s ystem which generated this result transmit dain reference range : >=90 mL/min/1.7 3 m2. The reference r meredith was not used to interpret this result as normal/abnormal . eGFR If Am (test 35 See_Comment L [A utomated message] code = 13323107) The system which generated this result transmit dain reference range : >=90 mL/min/1.7 3 m2. The reference r meredith was not used to interpret this result as normal/abnormal . Lab Interpretation (test Abnormal code = 96519-4) [facility] [id number] 13:57:55 Test Item Value Reference Range Interpretation Comments Creatinine POC (test 2.4 mg/dL 0.6-1.3 H Physici an Notified code = 45976098) eGFR If non- Am 30 See_Comment L [Aut omated message] (test code = 64918150) The s ystem which generated this result transmit dain reference range : >=90 mL/min/1.7 3 m2. The reference r meredith was not used to interpret this result as normal/abnormal . eGFR If Am (test 35 See_Comment L [A utomated message] code = 69228239) The system which generated this result transmit dain reference range : >=90 mL/min/1.7 3 m2. The reference r meredith was not used to interpret this result as normal/abnormal . Lab Interpretation (test Abnormal code = 49883-5) [facility] CREATININE POC docked [id number] 13:57:55 Test Item Value Reference Range Interpretation Comments Creatinine POC (test 2.4 mg/dL 0.6-1.3 H Physici an Notified code = 28641840) eGFR If non- Am 30 See_Comment L [Aut omated message] (test code = 32921244) The s ystem which generated this result transmit dain reference range : >=90 mL/min/1.7 3 m2. The reference r meredith was not used to interpret this result as normal/abnormal . eGFR If Am (test 35 See_Comment L [A utomated message] code = 20127638) The system which generated this result transmit dain reference range : >=90 mL/min/1.7 3 m2. The reference r meredith was not used to interpret this result as normal/abnormal . Lab Interpretation (test Abnormal code = 96952-8) [facility] CREATININE POC docked [id number] 13:57:55 Test Item Value Reference Range Interpretation Comments Creatinine POC (test 2.4 mg/dL 0.6-1.3 H Physici an Notified code = 46695482) eGFR If non- Am 30 See_Comment L [Aut omated message] (test code = 84082130) The s ystem which generated this result transmit dain reference range : >=90 mL/min/1.7 3 m2. The reference r meredith was not used to interpret this result as normal/abnormal . eGFR If Am (test 35 See_Comment L [A utomated message] code = 32754651) The system which generated this result transmit dain reference range : >=90 mL/min/1.7 3 m2. The reference r meredith was not used to interpret this result as normal/abnormal . Lab Interpretation (test Abnormal code = 61731-4) [facility] CREATININE POC docked [id number] 13:57:55 Test Item Value Reference Range Interpretation Comments Creatinine POC (test 2.4 mg/dL 0.6-1.3 H Physici an Notified code = 69494563) eGFR If non- Am 30 See_Comment L [Aut omated message] (test code = 40918842) The s ystem which generated this result transmit dain reference range : >=90 mL/min/1.7 3 m2. The reference r meredith was not used to interpret this result as normal/abnormal . eGFR If Am (test 35 See_Comment L [A utomated message] code = 25599844) The system which generated this result transmit dain reference range : >=90 mL/min/1.7 3 m2. The reference r meredith was not used to interpret this result as normal/abnormal . Lab Interpretation (test Abnormal code = 68033-5) [facility] [id number] 13:57:55 Test Item Value Reference Range Interpretation Comments Creatinine POC (test 2.4 mg/dL 0.6-1.3 H Physici an Notified code = 78316058) eGFR If non- Am 30 See_Comment L [Aut omated message] (test code = 41809052) The s ystem which generated this result transmit dain reference range : >=90 mL/min/1.7 3 m2. The reference r meredith was not used to interpret this result as normal/abnormal . eGFR If Am (test 35 See_Comment L [A utomated message] code = 12358412) The system which generated this result transmit dain reference range : >=90 mL/min/1.7 3 m2. The reference r meredith was not used to interpret this result as normal/abnormal . Lab Interpretation (test Abnormal code = 86077-1) [facility] [id number] 13:57:55 Test Item Value Reference Range Interpretation Comments Creatinine POC (test 2.4 mg/dL 0.6-1.3 H Physici an Notified code = 63444596) eGFR (test code = 30 See_Comment L [Automate d message] 11632648) The system [employer] generated this result transmit dain reference range : >=90 mL/min/1.7 3 m2. The reference r meredith was not used to interpret this result as normal/abnormal . eGFR If Am (test 35 See_Comment L [A utomated message] code = 79783278) The system which generated this result transmit dain reference range : >=90 mL/min/1.7 3 m2. The reference r meredith was not used to interpret this result as normal/abnormal . Lab Interpretation (test Abnormal code = 02393-7) [facility] [id number] 13:57:55 Test Item Value Reference Range Interpretation Comments Creatinine POC (test 2.4 mg/dL 0.6-1.3 H Physici an Notified code = 50723778) eGFR (test code = 30 See_Comment L [Automate d message] 80635905) The system [employer] generated this result transmit dain reference range : >=90 mL/min/1.7 3 m2. The reference r meredith was not used to interpret this result as normal/abnormal . eGFR If Am (test 35 See_Comment L [A utomated message] code = 54970010) The system which generated this result transmit dain reference range : >=90 mL/min/1.7 3 m2. The reference r meredith was not used to interpret this result as normal/abnormal . Lab Interpretation (test Abnormal code = 75221-3) [facility] CREATININE POC docked [id number] 13:57:55 Test Item Value Reference Range Interpretation Comments Creatinine POC (test 2.4 mg/dL 0.6-1.3 H Physici an Notified code = 23917591) eGFR (test code = 30 See_Comment L [Automate d message] 32706113) The system [employer] generated this result transmit dain reference range : >=90 mL/min/1.7 3 m2. The reference r meredith was not used to interpret this result as normal/abnormal . eGFR If Am (test 35 See_Comment L [A utomated message] code = 49650768) The system which generated this result transmit dain reference range : >=90 mL/min/1.7 3 m2. The reference r meredith was not used to interpret this result as normal/abnormal . Lab Interpretation (test Abnormal code = 02881-1) [facility] CREATININE POC docked [id number] 13:57:55 Test Item Value Reference Range Interpretation Comments Creatinine POC (test 2.4 mg/dL 0.6-1.3 H Physici an Notified code = 36300385) eGFR (test code = 30 See_Comment L [Automate d message] 50120571) The system [employer] generated this result transmit dain reference range : >=90 mL/min/1.7 3 m2. The reference r meredith was not used to interpret this result as normal/abnormal . eGFR If Am (test 35 See_Comment L [A utomated message] code = 62916704) The system which generated this result transmit dain reference range : >=90 mL/min/1.7 3 m2. The reference r meredith was not used to interpret this result as normal/abnormal . Lab Interpretation (test Abnormal code = 96424-2) [facility] CREATININE POC docked [id number] 13:57:55 Test Item Value Reference Range Interpretation Comments Creatinine POC (test 2.4 mg/dL 0.6-1.3 H Physici an Notified code = 63089242) eGFR If non- Am 30 See_Comment L [Aut omated message] (test code = 72660717) The s ystem which generated this result transmit dain reference range : >=90 mL/min/1.7 3 m2. The reference r meredith was not used to interpret this result as normal/abnormal . eGFR If Am (test 35 See_Comment L [A utomated message] code = 42108656) The system which generated this result transmit dain reference range : >=90 mL/min/1.7 3 m2. The reference r meredith was not used to interpret this result as normal/abnormal . Lab Interpretation (test Abnormal code = 31238-1) [facility] CREATININE POC docked [id number] 13:57:55 Test Item Value Reference Range Interpretation Comments Creatinine POC (test 2.4 mg/dL 0.6-1.3 H Physici an Notified code = 70075229) eGFR If non- Am 30 See_Comment L [Aut omated message] (test code = 20158549) The s ystem which generated this result transmit dain reference range : >=90 mL/min/1.7 3 m2. The reference r meredith was not used to interpret this result as normal/abnormal . eGFR If Am (test 35 See_Comment L [A utomated message] code = 69400159) The system which generated this result transmit dain reference range : >=90 mL/min/1.7 3 m2. The reference r meredith was not used to interpret this result as normal/abnormal . Lab Interpretation (test Abnormal code = 53950-7) [facility] POC docked [id number] 13:48:46 Test Item Value Reference Range Interpretation Comments Sodium POC (test code = 126 mmol/L 136-145 L 60060866) Potassium POC (test code 4.4 mmol/L 3.5-5.1 = 57395889) Chloride POC (test code 100 mmol/L 98-107 = 50742474) TCO2 POC (test code = 17 mmol/L 21-32 L Physic aylin Notified 03239813) Urea Nitrogen POC (test 36 mg/dL 7-18 H code = 45422601) Glucose POC (test code = 114 mg/dL 74-106 H 06955066) Hemoglobin POC (test 11.9 g/dL 12-16 L code = 37493971) Hematocrit POC (test 35.0 % 37.0-47.0 L code = 59230892) Lab Interpretation (test Abnormal code = 89396-3) [facility] POC docked [id number] 13:48:46 Test Item Value Reference Range Interpretation Comments Sodium POC (test code = 126 mmol/L 136-145 L 23009489) Potassium POC (test code 4.4 mmol/L 3.5-5.1 = 07057244) Chloride POC (test code 100 mmol/L 98-107 = 13023217) TCO2 POC (test code = 17 mmol/L 21-32 L Physic aylin Notified 48706674) Urea Nitrogen POC (test 36 mg/dL 7-18 H code = 57653762) Glucose POC (test code = 114 mg/dL 74-106 H 96473083) Hemoglobin POC (test 11.9 g/dL 12-16 L code = 05963408) Hematocrit POC (test 35.0 % 37.0-47.0 L code = 82262426) Lab Interpretation (test Abnormal code = 77692-2) [facility] POC docked [id number] 13:48:46 Test Item Value Reference Range Interpretation Comments Sodium POC (test code = 126 mmol/L 136-145 L 51027726) Potassium POC (test code 4.4 mmol/L 3.5-5.1 = 76436857) Chloride POC (test code 100 mmol/L 98-107 = 11445316) TCO2 POC (test code = 17 mmol/L 21-32 L Physic aylin Notified 22771723) Urea Nitrogen POC (test 36 mg/dL 7-18 H code = 59089568) Glucose POC (test code = 114 mg/dL 74-106 H 42808552) Hemoglobin POC (test 11.9 g/dL 12-16 L code = 09076895) Hematocrit POC (test 35.0 % 37.0-47.0 L code = 93292681) Lab Interpretation (test Abnormal code = 81756-1) [facility] POC docked [id number] 13:48:46 Test Item Value Reference Range Interpretation Comments Sodium POC (test code = 126 mmol/L 136-145 L 15836449) Potassium POC (test code 4.4 mmol/L 3.5-5.1 = 95595643) Chloride POC (test code 100 mmol/L 98-107 = 01290381) TCO2 POC (test code = 17 mmol/L 21-32 L Physic aylin Notified 03832519) Urea Nitrogen POC (test 36 mg/dL 7-18 H code = 91833951) Glucose POC (test code = 114 mg/dL 74-106 H 27453758) Hemoglobin POC (test 11.9 g/dL 12-16 L code = 46625675) Hematocrit POC (test 35.0 % 37.0-47.0 L code = 62348037) Lab Interpretation (test Abnormal code = 13743-5) [facility] BMP POC docked [id number] 13:48:46 Test Item Value Reference Range Interpretation Comments Sodium POC (test code = 126 mmol/L 136-145 L 14625646) Potassium POC (test code 4.4 mmol/L 3.5-5.1 = 05187131) Chloride POC (test code 100 mmol/L 98-107 = 35648083) TCO2 POC (test code = 17 mmol/L 21-32 L Physic aylin Notified 85344527) Urea Nitrogen POC (test 36 mg/dL 7-18 H code = 02880393) Glucose POC (test code = 114 mg/dL 74-106 H 77691505) Hemoglobin POC (test 11.9 g/dL 12-16 L code = 35601348) Hematocrit POC (test 35.0 % 37.0-47.0 L code = 79585820) Lab Interpretation (test Abnormal code = 85704-8) [facility] POC docked [id number] 13:48:46 Test Item Value Reference Range Interpretation Comments Sodium POC (test code = 126 mmol/L 136-145 L 48790502) Potassium POC (test code 4.4 mmol/L 3.5-5.1 = 73322806) Chloride POC (test code 100 mmol/L 98-107 = 74530036) TCO2 POC (test code = 17 mmol/L 21-32 L Physic aylin Notified 83702142) Urea Nitrogen POC (test 36 mg/dL 7-18 H code = 92826580) Glucose POC (test code = 114 mg/dL 74-106 H 74552941) Hemoglobin POC (test 11.9 g/dL 12-16 L code = 34039922) Hematocrit POC (test 35.0 % 37.0-47.0 L code = 92598981) Lab Interpretation (test Abnormal code = 18209-6) [facility] POC docked [id number] 13:48:46 Test Item Value Reference Range Interpretation Comments Sodium POC (test code = 126 mmol/L 136-145 L 32582982) Potassium POC (test code 4.4 mmol/L 3.5-5.1 = 32697112) Chloride POC (test code 100 mmol/L 98-107 = 23950821) TCO2 POC (test code = 17 mmol/L 21-32 L Physic aylin Notified 07343182) Urea Nitrogen POC (test 36 mg/dL 7-18 H code = 32241486) Glucose POC (test code = 114 mg/dL 74-106 H 23628785) Hemoglobin POC (test 11.9 g/dL 12-16 L code = 70773894) Hematocrit POC (test 35.0 % 37.0-47.0 L code = 67600880) Lab Interpretation (test Abnormal code = 98177-2) [facility] POC docked [id number] 13:48:46 Test Item Value Reference Range Interpretation Comments Sodium POC (test code = 126 mmol/L 136-145 L 29480216) Potassium POC (test code 4.4 mmol/L 3.5-5.1 = 99708829) Chloride POC (test code 100 mmol/L 98-107 = 53203170) TCO2 POC (test code = 17 mmol/L 21-32 L Physic aylin Notified 57325566) Urea Nitrogen POC (test 36 mg/dL 7-18 H code = 94411602) Glucose POC (test code = 114 mg/dL 74-106 H 81782297) Hemoglobin POC (test 11.9 g/dL 12-16 L code = 52232126) Hematocrit POC (test 35.0 % 37.0-47.0 L code = 86272192) Lab Interpretation (test Abnormal code = 38534-5) [facility] POC docked [id number] 13:48:46 Test Item Value Reference Range Interpretation Comments Sodium POC (test code = 126 mmol/L 136-145 L 44397907) Potassium POC (test code 4.4 mmol/L 3.5-5.1 = 54698789) Chloride POC (test code 100 mmol/L 98-107 = 28782154) TCO2 POC (test code = 17 mmol/L 21-32 L Physic aylin Notified 67221361) Urea Nitrogen POC (test 36 mg/dL 7-18 H code = 00025422) Glucose POC (test code = 114 mg/dL 74-106 H 59699203) Hemoglobin POC (test 11.9 g/dL 12-16 L code = 40743511) Hematocrit POC (test 35.0 % 37.0-47.0 L code = 77914154) Lab Interpretation (test Abnormal code = 52824-0) [facility] POC docked [id number] 13:48:46 Test Item Value Reference Range Interpretation Comments Sodium POC (test code = 126 mmol/L 136-145 L 24315515) Potassium POC (test code 4.4 mmol/L 3.5-5.1 = 72368522) Chloride POC (test code 100 mmol/L 98-107 = 29707138) TCO2 POC (test code = 17 mmol/L 21-32 L Physic aylin Notified 98711302) Urea Nitrogen POC (test 36 mg/dL 7-18 H code = 04229142) Glucose POC (test code = 114 mg/dL 74-106 H 78700232) Hemoglobin POC (test 11.9 g/dL 12-16 L code = 07517151) Hematocrit POC (test 35.0 % 37.0-47.0 L code = 33550794) Lab Interpretation (test Abnormal code = 95752-0) [facility] POC docked [id number] 13:48:46 Test Item Value Reference Range Interpretation Comments Sodium POC (test code = 126 mmol/L 136-145 L 36663481) Potassium POC (test code 4.4 mmol/L 3.5-5.1 = 38445106) Chloride POC (test code 100 mmol/L 98-107 = 00358370) TCO2 POC (test code = 17 mmol/L 21-32 L Physic aylin Notified 75789955) Urea Nitrogen POC (test 36 mg/dL 7-18 H code = 71888563) Glucose POC (test code = 114 mg/dL 74-106 H 64660614) Hemoglobin POC (test 11.9 g/dL 12-16 L code = 73170308) Hematocrit POC (test 35.0 % 37.0-47.0 L code = 62404309) Lab Interpretation (test Abnormal code = 24978-8) [facility] POC docked [id number] 13:48:46 Test Item Value Reference Range Interpretation Comments Sodium POC (test code = 126 mmol/L 136-145 L 96232914) Potassium POC (test code 4.4 mmol/L 3.5-5.1 = 33270697) Chloride POC (test code 100 mmol/L 98-107 = 49493324) TCO2 POC (test code = 17 mmol/L 21-32 L Physic aylin Notified 67374416) Urea Nitrogen POC (test 36 mg/dL 7-18 H code = 27162640) Glucose POC (test code = 114 mg/dL 74-106 H 72493996) Hemoglobin POC (test 11.9 g/dL 12-16 L code = 77250444) Hematocrit POC (test 35.0 % 37.0-47.0 L code = 71080253) Lab Interpretation (test Abnormal code = 18098-7) [facility] POC docked [id number] 13:48:46 Test Item Value Reference Range Interpretation Comments Sodium POC (test code = 126 mmol/L 136-145 L 66205456) Potassium POC (test code 4.4 mmol/L 3.5-5.1 = 72414717) Chloride POC (test code 100 mmol/L 98-107 = 35624139) TCO2 POC (test code = 17 mmol/L 21-32 L Physic aylin Notified 54098672) Urea Nitrogen POC (test 36 mg/dL 7-18 H code = 30023206) Glucose POC (test code = 114 mg/dL 74-106 H 27606223) Hemoglobin POC (test 11.9 g/dL 12-16 L code = 33637147) Hematocrit POC (test 35.0 % 37.0-47.0 L code = 77210476) Lab Interpretation (test Abnormal code = 88846-8) [facility] POC docked [id number] 13:48:46 Test Item Value Reference Range Interpretation Comments Sodium POC (test code = 126 mmol/L 136-145 L 96772660) Potassium POC (test code 4.4 mmol/L 3.5-5.1 = 01798101) Chloride POC (test code 100 mmol/L 98-107 = 09486669) TCO2 POC (test code = 17 mmol/L 21-32 L Physic aylin Notified 88775366) Urea Nitrogen POC (test 36 mg/dL 7-18 H code = 20066642) Glucose POC (test code = 114 mg/dL 74-106 H 69600500) Hemoglobin POC (test 11.9 g/dL 12-16 L code = 39821991) Hematocrit POC (test 35.0 % 37.0-47.0 L code = 98975532) Lab Interpretation (test Abnormal code = 73867-5) [facility] POC docked [id number] 13:48:46 Test Item Value Reference Range Interpretation Comments Sodium POC (test code = 126 mmol/L 136-145 L 94802242) Potassium POC (test code 4.4 mmol/L 3.5-5.1 = 97844868) Chloride POC (test code 100 mmol/L 98-107 = 77883011) TCO2 POC (test code = 17 mmol/L 21-32 L Physic aylin Notified 45002837) Urea Nitrogen POC (test 36 mg/dL 7-18 H code = 37957725) Glucose POC (test code = 114 mg/dL 74-106 H 07349969) Hemoglobin POC (test 11.9 g/dL 12-16 L code = 07890202) Hematocrit POC (test 35.0 % 37.0-47.0 L code = 54527214) Lab Interpretation (test Abnormal code = 15451-2) [facility] POC docked [id number] 13:48:46 Test Item Value Reference Range Interpretation Comments Sodium POC (test code = 126 mmol/L 136-145 L 49962825) Potassium POC (test code 4.4 mmol/L 3.5-5.1 = 46121342) Chloride POC (test code 100 mmol/L 98-107 = 46610149) TCO2 POC (test code = 17 mmol/L 21-32 L Physic aylin Notified 06881991) Urea Nitrogen POC (test 36 mg/dL 7-18 H code = 86482978) Glucose POC (test code = 114 mg/dL 74-106 H 37971209) Hemoglobin POC (test 11.9 g/dL 12-16 L code = 33064312) Hematocrit POC (test 35.0 % 37.0-47.0 L code = 05027197) Lab Interpretation (test Abnormal code = 28774-0) [facility] POC docked [id number] 13:48:46 Test Item Value Reference Range Interpretation Comments Sodium POC (test code = 126 mmol/L 136-145 L 03302431) Potassium POC (test code 4.4 mmol/L 3.5-5.1 = 20888954) Chloride POC (test code 100 mmol/L 98-107 = 49679557) TCO2 POC (test code = 17 mmol/L 21-32 L Physic aylin Notified 82120211) Urea Nitrogen POC (test 36 mg/dL 7-18 H code = 84684805) Glucose POC (test code = 114 mg/dL 74-106 H 22648976) Hemoglobin POC (test 11.9 g/dL 12-16 L code = 68153589) Hematocrit POC (test 35.0 % 37.0-47.0 L code = 41808330) Lab Interpretation (test Abnormal code = 24185-1) [facility] BMP POC docked [id number] 13:48:46 Test Item Value Reference Range Interpretation Comments Sodium POC (test code = 126 mmol/L 136-145 L 04630524) Potassium POC (test code 4.4 mmol/L 3.5-5.1 = 01634965) Chloride POC (test code 100 mmol/L 98-107 = 11728003) TCO2 POC (test code = 17 mmol/L 21-32 L Physic aylin Notified 07903137) Urea Nitrogen POC (test 36 mg/dL 7-18 H code = 98916705) Glucose POC (test code = 114 mg/dL 74-106 H 54637409) Hemoglobin POC (test 11.9 g/dL 12-16 L code = 57235789) Hematocrit POC (test 35.0 % 37.0-47.0 L code = 04940710) Lab Interpretation (test Abnormal code = 76749-7) [facility] BMP POC docked [id number] 13:48:46 Test Item Value Reference Range Interpretation Comments Sodium POC (test code = 126 mmol/L 136-145 L 45988221) Potassium POC (test code 4.4 mmol/L 3.5-5.1 = 71369144) Chloride POC (test code 100 mmol/L 98-107 = 14762208) TCO2 POC (test code = 17 mmol/L 21-32 L Physic aylin Notified 74734371) Urea Nitrogen POC (test 36 mg/dL 7-18 H code = 03562617) Glucose POC (test code = 114 mg/dL 74-106 H 20037266) Hemoglobin POC (test 11.9 g/dL 12-16 L code = 59886382) Hematocrit POC (test 35.0 % 37.0-47.0 L code = 77846257) Lab Interpretation (test Abnormal code = 89228-3) [facility]-CoV-2 ORF1ab Resp Ql OLENA+[id number] 20:25:16 Test Item Value Reference Range Interpretation Comments Hospitalized? (test No code = 22172-7) ICU? (test code = No 37540-7) Symptomatic as No defined by CDC? (test code = 80758-1) Employed in No Healthcare? (test code = 58178-9) Resident in a No congregate care setting (including nursing homes, residential care for people with intellectual and developmental disabilities, psychiatric treatment facilities, group homes, board and care homes, homeless halfway, foster care or other): (test code = 39332-4) SARS-CoV-2 ORF1ab NOT DETECTED Not Detected INTERPRETA TION: No Resp Ql OLENA+probe detectable levels of (test code = SARS-CoV-2 04913-0) Coronavirus (COVID-19) were present in this patient's [...] SARS-CoV-2 mole cular diagnostic assa y utilizes [employer] Mediated Amplification ( TMA) technology to r apidly detect the SARS -CoV-2 (COVID-19) viru s from respiratory adriana ples. In accordance with\\XC2A0\\the FDA's guidance docume nt "Policy for Diagnostic Test s for Coronavirus Disease-2019 du ring the Public Heal Emergency", ginger s test was developed, and its performance characteristics were verified by the [facility] molecular diagn ostics laboratory and is authorized for clinical diagno stic use. \\XC2A0\\Thi s laboratory is certified under the Clinical Labora tory Improvement Amendments (CLI A) as qualified to pe rform high complexity clinical labora tory testing. [facility]SP[facility] VBG POC docked [id number] 11:16:15 Test Item Value Reference Range Interpretation Comments pH, Pankaj POC (test code 7.32 7.33-7.43 L = 11793995) pCO2,Pankaj POC (test code 31.0 See_Comment L [Au tomated = 63617558) message] The sy stem which generated this result transmitted reference range : 38 - 50 mmHg. The reference range was not used to interpret this result as normal/abnormal . PO2, Venous POC (BKR) 44 See_Comment L [Auto mated (test code = 00480822) [employer] ge] The system which generated this result transmitted reference range : 50 - 75 mm Hg. The reference range was not used to interpret this result as normal/abnormal . Ionized Calcium POC 1.24 mmol/L 1.15-1.29 (test code = 91974088) HCO3, Pankaj POC (test 16 mmol/L 22-26 L code = 28756540) TCO2 POC (test code = 17 mmol/L 21-32 L 92438733) Base Deficit, Pankaj POC -9 (test code = 37212891) Sample Type (test code IVFLORENCE Physi erik Notified = 80116366) % Sat, Pankaj POC (test 77 % code = 51988071) Lab Interpretation Abnormal (test code = 46077-0) [facility] VBG POC docked [id number] 11:16:15 Test Item Value Reference Range Interpretation Comments pH, Pankaj POC (test code 7.32 7.33-7.43 L = 03581016) pCO2,Pankaj POC (test code 31.0 See_Comment L [Au tomated = 12638549) message] The sy stem which generated this result transmitted reference range : 38 - 50 mmHg. The reference range was not used to interpret this result as normal/abnormal . PO2, Venous POC (BKR) 44 See_Comment L [Auto mated (test code = 04018239) [employer]] The system which generated this result transmitted reference range : 50 - 75 mm Hg. The reference range was not used to interpret this result as normal/abnormal . Ionized Calcium POC 1.24 mmol/L 1.15-1.29 (test code = 22342292) HCO3, Pankaj POC (test 16 mmol/L 22-26 L code = 80883696) TCO2 POC (test code = 17 mmol/L 21-32 L 58816256) Base Deficit, Pankaj POC -9 (test code = 99133969) Sample Type (test code STEPAN valencia Notified = 84484644) % Sat, Pankaj POC (test 77 % code = 17353519) Lab Interpretation Abnormal (test code = 86015-6) [facility] VBG POC docked [id number] 11:16:15 Test Item Value Reference Range Interpretation Comments pH, Pankaj POC (test code 7.32 7.33-7.43 L = 73534073) pCO2,Pankaj POC (test code 31.0 See_Comment L [Au tomated = 43242811) message] The sy stem which generated this result transmitted reference range : 38 - 50 mmHg. The reference range was not used to interpret this result as normal/abnormal . PO2, Venous POC (BKR) 44 See_Comment L [Auto mated (test code = 69219917) messa ge] The system which generated this result transmitted reference range : 50 - 75 mm Hg. The reference range was not used to interpret this result as normal/abnormal . Ionized Calcium POC 1.24 mmol/L 1.15-1.29 (test code = 11713720) HCO3, Pankaj POC (test 16 mmol/L 22-26 L code = 85027290) TCO2 POC (test code = 17 mmol/L 21-32 L 09415705) Base Deficit, Pankaj POC -9 (test code = 65940252) Sample Type (test code STEPAN valencia Notified = 38593713) % Sat, Pankaj POC (test 77 % code = 40184342) Lab Interpretation Abnormal (test code = 48786-4) [facility] VBG POC docked [id number] 11:16:15 Test Item Value Reference Range Interpretation Comments pH, Pankaj POC (test code 7.32 7.33-7.43 L = 19690007) pCO2,Pankaj POC (test code 31.0 See_Comment L [Au tomated = 85944464) message] The sy stem which generated this result transmitted reference range : 38 - 50 mmHg. The reference range was not used to interpret this result as normal/abnormal . PO2, Venous POC (BKR) 44 See_Comment L [Auto mated (test code = 29378622) messa ge] The system which generated this result transmitted reference range : 50 - 75 mm Hg. The reference range was not used to interpret this result as normal/abnormal . Ionized Calcium POC 1.24 mmol/L 1.15-1.29 (test code = 17427041) HCO3, Pankaj POC (test 16 mmol/L 22-26 L code = 31432197) TCO2 POC (test code = 17 mmol/L 21-32 L 09415845) Base Deficit, Pankaj POC -9 (test code = 38065524) Sample Type (test code IVFLORENCE Physi erik Notified = 08414742) % Sat, Pankaj POC (test 77 % code = 24487451) Lab Interpretation Abnormal (test code = 41468-1) [facility] VBG POC docked [id number] 11:16:15 Test Item Value Reference Range Interpretation Comments pH, Pankaj POC (test code 7.32 7.33-7.43 L = 91864602) pCO2,Pankaj POC (test code 31.0 See_Comment L [Au tomated = 87623530) message] The sy stem which generated this result transmitted reference range : 38 - 50 mmHg. The reference range was not used to interpret this result as normal/abnormal . PO2, Venous POC (BKR) 44 See_Comment L [Auto mated (test code = 29893270) [employer]] The system which generated this result transmitted reference range : 50 - 75 mm Hg. The reference range was not used to interpret this result as normal/abnormal . Ionized Calcium POC 1.24 mmol/L 1.15-1.29 (test code = 22879682) HCO3, Pankaj POC (test 16 mmol/L 22-26 L code = 01639335) TCO2 POC (test code = 17 mmol/L 21-32 L 57840073) Base Deficit, Pankaj POC -9 (test code = 52266132) Sample Type (test code IVFLORENCE Physi erik Notified = 96551911) % Sat, Pankaj POC (test 77 % code = 69625477) Lab Interpretation Abnormal (test code = 37790-4) [facility] VBG POC docked [id number] 11:16:15 Test Item Value Reference Range Interpretation Comments pH, Pankaj POC (test code 7.32 7.33-7.43 L = 08529554) pCO2,Pankaj POC (test code 31.0 See_Comment L [Au tomated = 75998300) message] The sy stem which generated this result transmitted reference range : 38 - 50 mmHg. The reference range was not used to interpret this result as normal/abnormal . PO2, Venous POC (BKR) 44 See_Comment L [Auto mated (test code = 21930098) [employer]] The system which generated this result transmitted reference range : 50 - 75 mm Hg. The reference range was not used to interpret this result as normal/abnormal . Ionized Calcium POC 1.24 mmol/L 1.15-1.29 (test code = 03334206) HCO3, Pankaj POC (test 16 mmol/L 22-26 L code = 79679628) TCO2 POC (test code = 17 mmol/L 21-32 L 12352187) Base Deficit, Pankaj POC -9 (test code = 21600393) Sample Type (test code IVEN Physi erik Notified = 53055155) % Sat, Pankaj POC (test 77 % code = 24899993) Lab Interpretation Abnormal (test code = 03295-2) [facility] POC docked [id number] 11:16:15 Test Item Value Reference Range Interpretation Comments pH, Pankaj POC (test code 7.32 7.33-7.43 L = 16388697) pCO2,Pankaj POC (test code 31.0 See_Comment L [Au tomated = 83255243) message] The sy stem which generated this result transmitted reference range : 38 - 50 mmHg. The reference range was not used to interpret this result as normal/abnormal . PO2, Venous POC (BKR) 44 See_Comment L [Auto mated (test code = 45853672) [employer] K[employer]] The system which generated this result transmitted reference range : 50 - 75 mm Hg. The reference range was not used to interpret this result as normal/abnormal . Ionized Calcium POC 1.24 mmol/L 1.15-1.29 (test code = 19115729) HCO3, Pankaj POC (test 16 mmol/L 22-26 L code = 12561517) TCO2 POC (test code = 17 mmol/L 21-32 L 71582060) Base Deficit, Pankaj POC -9 (test code = 54013689) Sample Type (test code IVEN Physi erik Notified = 80151985) % Sat, Pankaj POC (test 77 % code = 86556942) Lab Interpretation Abnormal (test code = 22123-3) [facility] POC docked [id number] 11:16:15 Test Item Value Reference Range Interpretation Comments pH, Pankaj POC (test code 7.32 7.33-7.43 L = 83165823) pCO2,Pankaj POC (test code 31.0 See_Comment L [Au tomated = 32403269) message] The sy stem which generated this result transmitted reference range : 38 - 50 mmHg. The reference range was not used to interpret this result as normal/abnormal . PO2, Venous POC (BKR) 44 See_Comment L [Auto mated (test code = 73445160) [employer]] The system which generated this result transmitted reference range : 50 - 75 mm Hg. The reference range was not used to interpret this result as normal/abnormal . Ionized Calcium POC 1.24 mmol/L 1.15-1.29 (test code = 83076213) HCO3, Pankaj POC (test 16 mmol/L 22-26 L code = 82960756) TCO2 POC (test code = 17 mmol/L 21-32 L 82780456) Base Deficit, Pankaj POC -9 (test code = 01674208) Sample Type (test code STEPAN Physi erik Notified = 97795476) % Sat, Pankaj POC (test 77 % code = 28365515) Lab Interpretation Abnormal (test code = 86887-9) [facility] VBG POC docked [id number] 11:16:15 Test Item Value Reference Range Interpretation Comments pH, Pankaj POC (test code 7.32 7.33-7.43 L = 21039101) pCO2,Pankaj POC (test code 31.0 See_Comment L [Au tomated = 74859311) message] The sy stem which generated this result transmitted reference range : 38 - 50 mmHg. The reference range was not used to interpret this result as normal/abnormal . PO2, Venous POC (BKR) 44 See_Comment L [Auto mated (test code = 86706951) [employer]] The system which generated this result transmitted reference range : 50 - 75 mm Hg. The reference range was not used to interpret this result as normal/abnormal . Ionized Calcium POC 1.24 mmol/L 1.15-1.29 (test code = 41893859) HCO3, Pankaj POC (test 16 mmol/L 22-26 L code = 44730602) TCO2 POC (test code = 17 mmol/L 21-32 L 94643074) Base Deficit, Pankaj POC -9 (test code = 43580941) Sample Type (test code STEPAN valencia Notified = 24370784) % Sat, Pankaj POC (test 77 % code = 74026331) Lab Interpretation Abnormal (test code = 22914-7) [facility] VBG POC docked [id number] 11:16:15 Test Item Value Reference Range Interpretation Comments pH, Pankaj POC (test code 7.32 7.33-7.43 L = 49666098) pCO2,Pankaj POC (test code 31.0 See_Comment L [Au tomated = 16776568) message] The sy stem which generated this result transmitted reference range : 38 - 50 mmHg. The reference range was not used to interpret this result as normal/abnormal . PO2, Venous POC (BKR) 44 See_Comment L [Auto mated (test code = 47270705) messa ge] The system which generated this result transmitted reference range : 50 - 75 mm Hg. The reference range was not used to interpret this result as normal/abnormal . Ionized Calcium POC 1.24 mmol/L 1.15-1.29 (test code = 59822920) HCO3, Pankaj POC (test 16 mmol/L 22-26 L code = 53013134) TCO2 POC (test code = 17 mmol/L 21-32 L 01651731) Base Deficit, Pankaj POC -9 (test code = 00954856) Sample Type (test code STEPAN valencia Notified = 15481081) % Sat, Pankaj POC (test 77 % code = 29337984) Lab Interpretation Abnormal (test code = 90878-5) [facility] VBG POC docked [id number] 11:16:15 Test Item Value Reference Range Interpretation Comments pH, Pankaj POC (test code 7.32 7.33-7.43 L = 55658564) pCO2,Pankaj POC (test code 31.0 See_Comment L [Au tomated = 93517454) message] The sy stem which generated this result transmitted reference range : 38 - 50 mmHg. The reference range was not used to interpret this result as normal/abnormal . PO2, Venous POC (BKR) 44 See_Comment L [Auto mated (test code = 18068712) messa ge] The system which generated this result transmitted reference range : 50 - 75 mm Hg. The reference range was not used to interpret this result as normal/abnormal . Ionized Calcium POC 1.24 mmol/L 1.15-1.29 (test code = 90184931) HCO3, Pankaj POC (test 16 mmol/L 22-26 L code = 70166354) TCO2 POC (test code = 17 mmol/L 21-32 L 27003323) Base Deficit, Pankaj POC -9 (test code = 68633432) Sample Type (test code IVFLORENCE Physi erik Notified = 89996854) % Sat, Pankaj POC (test 77 % code = 98398319) Lab Interpretation Abnormal (test code = 82946-5) [facility] VBG POC docked [id number] 11:16:15 Test Item Value Reference Range Interpretation Comments pH, Pankaj POC (test code 7.32 7.33-7.43 L = 68221994) pCO2,Pankaj POC (test code 31.0 See_Comment L [Au tomated = 86437297) message] The sy stem which generated this result transmitted reference range : 38 - 50 mmHg. The reference range was not used to interpret this result as normal/abnormal . PO2, Venous POC (BKR) 44 See_Comment L [Auto mated (test code = 76322272) Heetch] The system which generated this result transmitted reference range : 50 - 75 mm Hg. The reference range was not used to interpret this result as normal/abnormal . Ionized Calcium POC 1.24 mmol/L 1.15-1.29 (test code = 64119663) HCO3, Pankaj POC (test 16 mmol/L 22-26 L code = 43055699) TCO2 POC (test code = 17 mmol/L 21-32 L 38119603) Base Deficit, Pankaj POC -9 (test code = 69270475) Sample Type (test code IVEN Physi erik Notified = 51409000) % Sat, Pankaj POC (test 77 % code = 94835566) Lab Interpretation Abnormal (test code = 77849-9) [facility] [id number] 11:16:15 Test Item Value Reference Range Interpretation Comments pH, Pankaj POC (test code 7.32 7.33-7.43 L = 66804361) pCO2,Pankaj POC (test code 31.0 See_Comment L [Au tomated = 88312986) message] The sy stem which generated this result transmitted reference range : 38 - 50 mmHg. The reference range was not used to interpret this result as normal/abnormal . PO2, Venous POC (BKR) 44 See_Comment L [Auto mated (test code = 44638064) messa ge] The system which generated this result transmitted reference range : 50 - 75 mm Hg. The reference range was not used to interpret this result as normal/abnormal . Ionized Calcium POC 1.24 mmol/L 1.15-1.29 (test code = 89028209) HCO3, Pankaj POC (test 16 mmol/L 22-26 L code = 78948196) TCO2 POC (test code = 17 mmol/L 21-32 L 21333239) Base Deficit, Pankaj POC -9 (test code = 84425274) Sample Type (test code IVEN Physi erik Notified = 82828659) % Sat, Pankaj POC (test 77 % code = 44587022) Lab Interpretation Abnormal (test code = 27122-3) [facility] VBG POC docked [id number] 11:16:15 Test Item Value Reference Range Interpretation Comments pH, Pankaj POC (test code 7.32 7.33-7.43 L = 74632901) pCO2,Panakj POC (test code 31.0 See_Comment L [Au tomated = 12104789) message] The sy stem which generated this result transmitted reference range : 38 - 50 mmHg. The reference range was not used to interpret this result as normal/abnormal . PO2, Venous POC (BKR) 44 See_Comment L [Auto mated (test code = 44863427) messa ge] The system which generated this result transmitted reference range : 50 - 75 mm Hg. The reference range was not used to interpret this result as normal/abnormal . Ionized Calcium POC 1.24 mmol/L 1.15-1.29 (test code = 27902883) HCO3, Pankaj POC (test 16 mmol/L 22-26 L code = 02391214) TCO2 POC (test code = 17 mmol/L 21-32 L 09348427) Base Deficit, Pankaj POC -9 (test code = 38837419) Sample Type (test code IVEN Physi erik Notified = 91632467) % Sat, Pankaj POC (test 77 % code = 57869664) Lab Interpretation Abnormal (test code = 35881-8) [facility] VB POC docked [id number] 11:16:15 Test Item Value Reference Range Interpretation Comments pH, Pankaj POC (test code 7.32 7.33-7.43 L = 46256273) pCO2,Pankaj POC (test code 31.0 See_Comment L [Au tomated = 46489530) message] The sy stem which generated this result transmitted reference range : 38 - 50 mmHg. The reference range was not used to interpret this result as normal/abnormal . PO2, Venous POC (BKR) 44 See_Comment L [Auto mated (test code = 43320263) messa ge] The system which generated this result transmitted reference range : 50 - 75 mm Hg. The reference range was not used to interpret this result as normal/abnormal . Ionized Calcium POC 1.24 mmol/L 1.15-1.29 (test code = 83782532) HCO3, Pankaj POC (test 16 mmol/L 22-26 L code = 88261636) TCO2 POC (test code = 17 mmol/L 21-32 L 74111921) Base Deficit, Pankaj POC -9 (test code = 53560866) Sample Type (test code IVFLORENCE Physi erik Notified = 32423353) % Sat, Pankaj POC (test 77 % code = 80917131) Lab Interpretation Abnormal (test code = 83604-6) [facility] POC docked [id number] 11:16:15 Test Item Value Reference Range Interpretation Comments pH, Pankaj POC (test code 7.32 7.33-7.43 L = 92300216) pCO2,Pankaj POC (test code 31.0 See_Comment L [Au tomated = 58004096) message] The sy stem which generated this result transmitted reference range : 38 - 50 mmHg. The reference range was not used to interpret this result as normal/abnormal . PO2, Venous POC (BKR) 44 See_Comment L [Auto mated (test code = 53198679) messa ge] The system which generated this result transmitted reference range : 50 - 75 mm Hg. The reference range was not used to interpret this result as normal/abnormal . Ionized Calcium POC 1.24 mmol/L 1.15-1.29 (test code = 81990171) HCO3, Pankaj POC (test 16 mmol/L 22-26 L code = 88783808) TCO2 POC (test code = 17 mmol/L 21-32 L 65919375) Base Deficit, Pankaj POC -9 (test code = 15087473) Sample Type (test code STEPAN valencia Notified = 46109944) % Sat, Pankaj POC (test 77 % code = 68430076) Lab Interpretation Abnormal (test code = 70339-7) [facility] VBG POC docked [id number] 11:16:15 Test Item Value Reference Range Interpretation Comments pH, Pankaj POC (test code 7.32 7.33-7.43 L = 08897358) pCO2,Pankaj POC (test code 31.0 See_Comment L [Au tomated = 68656866) message] The sy stem which generated this result transmitted reference range : 38 - 50 mmHg. The reference range was not used to interpret this result as normal/abnormal . PO2, Venous POC (BKR) 44 See_Comment L [Auto mated (test code = 21731331) Anna Lozabai ge] The system which generated this result transmitted reference range : 50 - 75 mm Hg. The reference range was not used to interpret this result as normal/abnormal . Ionized Calcium POC 1.24 mmol/L 1.15-1.29 (test code = 96883055) HCO3, Pankaj POC (test 16 mmol/L 22-26 L code = 86619556) TCO2 POC (test code = 17 mmol/L 21-32 L 96451186) Base Deficit, Pankaj POC -9 (test code = 87166907) Sample Type (test code STEPAN valencia Notified = 94957496) % Sat, Pankaj POC (test 77 % code = 05159425) Lab Interpretation Abnormal (test code = 03628-2) [facility] VBG POC docked [id number] 11:16:15 Test Item Value Reference Range Interpretation Comments pH, Pankaj POC (test code 7.32 7.33-7.43 L = 87726116) pCO2,Pankaj POC (test code 31.0 See_Comment L [Au tomated = 30526858) message] The sy stem which generated this result transmitted reference range : 38 - 50 mmHg. The reference range was not used to interpret this result as normal/abnormal . PO2, Venous POC (BKR) 44 See_Comment L [Auto mated (test code = 25314143) [employer]] The system which generated this result transmitted reference range : 50 - 75 mm Hg. The reference range was not used to interpret this result as normal/abnormal . Ionized Calcium POC 1.24 mmol/L 1.15-1.29 (test code = 02252531) HCO3, Pankaj POC (test 16 mmol/L 22-26 L code = 75780219) TCO2 POC (test code = 17 mmol/L 21-32 L 60428674) Base Deficit, Pankaj POC -9 (test code = 60150351) Sample Type (test code IVEN Physi erik Notified = 24549649) % Sat, Pankaj POC (test 77 % code = 15342017) Lab Interpretation Abnormal (test code = 45275-7) [facility]BG POC docked [id number] 11:16:15 Test Item Value Reference Range Interpretation Comments pH, Pankaj POC (test code 7.32 7.33-7.43 L = 67689511) pCO2,Pankaj POC (test code 31.0 See_Comment L [Au tomated = 88315928) message] The sy stem which generated this result transmitted reference range : 38 - 50 mmHg. The reference range was not used to interpret this result as normal/abnormal . PO2, Venous POC (BKR) 44 See_Comment L [Auto mated (test code = 93128693) [employer]] The system which generated this result transmitted reference range : 50 - 75 mm Hg. The reference range was not used to interpret this result as normal/abnormal . Ionized Calcium POC 1.24 mmol/L 1.15-1.29 (test code = 38906333) HCO3, Pankaj POC (test 16 mmol/L 22-26 L code = 24243591) TCO2 POC (test code = 17 mmol/L 21-32 L 49838043) Base Deficit, Pankaj POC -9 (test code = 53650035) Sample Type (test code IVEN Physi erik Notified = 65719393) % Sat, Pankaj POC (test 77 % code = 32425944) Lab Interpretation Abnormal (test code = 26136-0) [place] [address] LEAD [id number] 20:59:5612 LEAD EKG FOR [facility] Test Date: 7235-04-83Umq Name: DORA PAEZRY Department: 5520Patient ID: [id number] 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: [id number]: 1970 Requested By: TANJA Garza Number: [id number] Reading MD: Chiara Calles MeasurementsIntervals [place] Rate: 75 P: 84PR: 153 QRS: 67QRSD: 104 T: 77QT: 344 QTc: 373 Interpretive StatementsSINUS RHYTHMPOSSIBLE RIGHT VENTRICULAR CONDUCTION DELAY [RSR (QR) IN V1/V2]Electronically Signed On 01-09-2022 8:27:19 CDT by Chiara DavisPECO PalletCom[address]Rim[address] LEAD [id number] 20:59:5612 LEAD EKG FOR [facility] Test Date: 4028-35-08Nhx Name: DORA PAEZRY Department: 5520Patient ID: [id number] 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: [id number]: 1970 Requested By: TANJA Garza Number: [id number] Reading MD: Chiara Calles MeasurementsIntervals [place] Rate: 75 P: 84PR: 153 QRS: 67QRSD: 104 T: 77QT: 344 QTc: 373 Interpretive StatementsSINUS RHYTHMPOSSIBLE RIGHT VENT RICULAR CONDUCTION DELAY [RSR (QR) IN V1/V2]Electronically Signed On 01-09-2022 8:27:19 CDT [address] LEAD [id number] 20:59:5612 LEAD EKG FOR [facility] Test Date: 9698-31-26Xog Name: [facility] Department: 5520Patient ID: [id number] 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: [id number]: 1970 Requested By: TANJA Garza Number: [id number] Reading MD: Chiara Calles MeasurementsIntervals [place] Rate: 75 P: 84PR: 153 QRS: 67QRSD: 104 T: 77QT: 344 QTc: 373 Interpretive StatementsSINUS RHYTHMPOSSIBLE RIGHT VENTRICULAR CONDUCTION DELAY [RSR (QR) IN V1/V2]Electronically Signed On 01-09-2022 8:27:19 CDT by Chiara [employer] [place] ResourcesJoseph [place] [address] LEAD [id number] 20:59:5612 LEAD EKG FOR [facility] Test Date: 6625-60-12Kqy Name: DORA JOSEPH Department: 5520Patient ID: [id number] 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: [id number]: 1970 Requested By: TANJA Garza Number: [id number] Reading MD: Chiara Calles MeasurementsIntervals [place] Rate: 75 P: 84P R: 153 QRS: 67QRSD: 104 T: 77QT: 344 QTc: 373 Interpretive StatementsSINUS RHYTHMPOSSIBLE RIGHT VENTRICULAR CONDUCTION DELAY [RSR (QR) IN V1/V2]Electronically Signed On 01-09-2022 8:27:19 CDT by [facility] HospitalTrans [facility] ResourcesChi [facility] HospitalOn2 Technologies [place] [address] LEAD [id number] 20:59:5612 LEAD EKG FOR [facility] Test Date: 2537-06-84Mcw Name: DROA JOSEPH Department: 5520Patient ID: [id number] 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: [id number]: 1970 Requested By: TANJA Garza Number: [id number] Reading MD: Chiara Calles MeasurementsIntervals [place] Rate: 75 P: 84PR: 153 QRS: 67QRSD: 104 T: 77QT: 344 QTc: 373 Interpretive StatementsSINUS RHYTHMPOSSIBLE RIGHT VENTRICULAR CONDUCTION DELAY [RSR (QR) IN V1/V2]Electronically Signed On 01-09-2022 8:27:19 CDT by [facility] HospitalTrans [facility] ResourcesJoseph [place] [address] LEAD [id number] 20:59:5612 LEAD EKG FOR [facility] Test Date: 7154-92-06Rcj Name: DORA PAEZRY Department: 5520Patient ID: [id number] 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: [id number]: 1970 Requested By: TANJA Garza Number: [id number] Reading MD: Chiara Calles MeasurementsIntervals [place] Rate: 75 P: 84PR: 153 QRS: 67QRSD: 104 T: 77QT: 344 QTc: 373 Interpretive StatementsSINUS RHYTHMPOSSIBLE RIGHT VENTR ICULAR CONDUCTION DELAY [RSR (QR) IN V1/V2]Electronically Signed On 01-09-2022 8:27:19 CDT by [employer] LeagueAppsbakariPECO PalletCompaRimini [address] LEAD [id number] 20:59:5612 LEAD EKG FOR [facility] Test Date: 3033-48-64Cfc Name: DORA PAEZRY Department: 5520Patient ID: [id number] 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: [id number]: 1970 Requested By: TANJA Garza Number: [id number] Reading MD: Chiara Calles MeasurementsIntervals [place] Rate: 75 P: 84PR: 153 QRS: 67QRSD: 104 T: 77QT: 344 QTc: 373 Interpretive StatementsSINUS RHYTHMPOSSIBLE RIGHT VENTRICULAR CONDUCTION DELAY [RSR (QR) IN V1/V2]Electronically Signed On 01-09-2022 8:27:19 CDT by [place]bert [employer] D/[employer] LeagueAppsbakariPECO PalletCompaRimini Street12 LEAD [id number] 20:59:5612 LEAD EKG FOR [facility] Test Date: 8346-72-29Fyz Name: DORA PAEZRY Department: 5520Patient ID: [id number] 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: [id number]: 1970 Requested By: TANJA Garza Number: [id number] Reading MD: Chiara Calles MeasurementsIntervals [place] Rate: 75 P: 84PR: 153 QRS: 67QRSD: 104 T: 77QT: 344 QTc: 373 Interpretive StatementsSINUS RHYTHMPOSSIBLE RIGHT VENTRICULAR CONDUCTION DELAY [RSR (QR) IN V1/V2]Electronically Signed On 01-09-2022 8:27:19 CDT by Walrobert Trans Tasman ResourcesCompaRimini Street12 LEAD [id number] 20:59:5612 LEAD EKG FOR [facility] Test Date: 3351-92-67Srb Name: DORA PAEZRY Department: 5520Patient ID: [id number] 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: [id number]: 1970 Requested By: TANJA Garza Number: [id number] Reading MD: Chiara Calles MeasurementsIntervals [place] Rate: 75 P: 84PR: 153 QRS: 67QRSD: 104 T: 77QT: 344 QTc: 373 Interpretive StatementsSINUS RHYTHMPOSSIBLE RIGHT VENTR ICULAR CONDUCTION DELAY [RSR (QR) IN V1/V2]Electronically Signed On 01-09-2022 8:27:19 CDT by Chiara [employer]/A LeagueAppsbakariPECO PalletNew [place]ford [address] LEAD [id number] 20:59:5612 LEAD EKG FOR [facility] Test Date: 3799-93-26Gxk Name: DORA RODERFIELD Department: 5520Patient ID: [id number] 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: [id number]: 1970 Requested By: TANJA Garza Number: [id number] Reading MD: Chiara Calles MeasurementsIntervals [place] Rate: 75 P: 84PR: 153 QRS: 67QRSD: 104 T: 77QT: 344 QTc: 373 Interpretive StatementsSINUS RHYTHMPOSSIBLE RIGHT VENTRICULAR CONDUCTION DELAY [RSR (QR) IN V1/V2]Electronically Signed On 01-09-2022 8:27:19 CDT by ChiaraJETME12 LEAD [id number] 20:59:5612 LEAD EKG FOR [facility] Test Date: 1830-83-05Klx Name: DORA JOSEPH Department: 5520Patient ID: [id number] 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: [id number]: 1970 Requested By: TANJA Garza Number: [id number] Reading MD: Chiara Calles MeasurementsIntervals [place] Rate: 75 P: 84P R: 153 QRS: 67QRSD: 104 T: 77QT: 344 QTc: 373 Interpretive StatementsSINUS RHYTHMPOSSIBLE RIGHT VENTRICULAR CONDUCTION DELAY [RSR (QR) IN V1/V2]Electronically Signed On 01-09-2022 8:27:19 CDT by Noosh12 LEAD [id number] 20:59:5612 LEAD EKG FOR [facility] Test Date: 1986-45-25May Name: DORA JOSEPH Department: 5520Patient ID: [id number] 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: [id number]: 1970 Requested By: TANJA Garza Number: [id number] Reading MD: Chiara Calles MeasurementsIntervals [place] Rate: 75 P: 84PR: 153 QRS: 67QRSD: 104 T: 77QT: 344 QTc: 373 Interpretive StatementsSINUS RHYTHMPOSSIBLE RIGHT VENTRICULAR CONDUCTION DELAY [RSR (QR) IN V1/V2]Electronically Signed On 01-09-2022 8:27:19 CDT by Noosh12 LEAD [id number] 20:59:5612 LEAD EKG FOR [facility] Test Date: 6039-20-41Lug Name: DOAR JOSEPH Department: 5520Patient ID: [id number] 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: [id number]: 1970 Requested By: TANJA Garza Number: [id number] Reading MD: Chiara Calles MeasurementsIntervals [place] Rate: 75 P: 84PR: 153 QRS: 67QRSD: 104 T: 77QT: 344 QTc: 373 Interpretive StatementsSINUS RHYTHMPOSSIBLE RIGHT VENTR ICULAR CONDUCTION DELAY [RSR (QR) IN V1/V2]Electronically Signed On 01-09-2022 8:27:19 CDT by [employer]12 LEAD [id number] 20:59:5612 LEAD EKG FOR [facility] Test Date: 6641-60-18Ixa Name: DORA JOSEPH Department: 5520Patient ID: [id number] 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: [id number]: 1970 Requested By: TANJA Garza Number: [id number] Reading MD: Chiara Calles MeasurementsIntervals [place] Rate: 75 P: 84PR: 153 QRS: 67QRSD: 104 T: 77QT: 344 QTc: 373 Interpretive StatementsSINUS RHYTHMPOSSIBLE RIGHT VENTRICULAR CONDUCTION DELAY [RSR (QR) IN V1/V2]Electronically Signed On 01-09-2022 8:27:19 CDT by [facility] Memorial HospitalDiffusion PharmaceuticalsJoseph Ville [address] LEAD [id number] 20:59:5612 LEAD EKG FOR [facility] Test Date: 9711-89-61Rgm Name: DORA JOSEPH Department: 5520Patient ID: [id number] 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: [id number]: 1970 Requested By: TANJA Garza Number: [id number] Reading MD: Chiara Calles MeasurementsIntervals [place] Rate: 75 P: 84 TN: 153 QRS: 67QRSD: 104 T: 77QT: 344 QTc: 373 Interpretive StatementsSINUS RHYTHMPOSSIBLE RIGHT VENTRICULAR CONDUCTION DELAY [RSR (QR) IN V1/V2]Electronically Signed On 01-09-2022 8:27:19 CDT by [facility] Obici HospitalTrans Tasman ResourcesJoseph Ville [address] LEAD [id number] 20:59:5612 LEAD EKG FOR [facility] Test Date: 8476-24-24Pwm Name: DORA RODERFIELD Department: 5520Patient ID: [id number] 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: [id number]: 1970 Requested By: TANJA Garza Number: [id number] Reading MD: Chiara Calles MeasurementsIntervals [place] Rate: 75 P: 84PR: 153 QRS: 67QRSD: 104 T: 77QT: 344 QTc: 373 Interpretive StatementsSINUS RHYTHMPOSSIBLE RIGHT VENTRICULAR CONDUCTION DELAY [RSR (QR) IN V1/V2]Electronically Signed On 01-09-2022 8:27:19 CDT by [employer] Hgstsf26 LEAD [id number] 20:59:5612 LEAD EKG FOR [facility] Test Date: 8824-59-61Pit Name: DORA JOSEPH Department: 5520Patient ID: [id number] 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: [id number]: 1970 Requested By: TANJA Garza Number: [id number] Reading MD: Chiara Calles MeasurementsIntervals [place] Rate: 75 P: 84PR: 153 QRS: 67QRSD: 104 T: 77QT: 344 QTc: 373 Interpretive StatementsSINUS RHYTHMPOSSIBLE RIGHT VENTRICULAR CONDUCTION DELAY [RSR (QR) IN V1/V2]Electronically Signed On 01-09-2022 8:27:19 CDT by [facility] HospitalTrans Tasman ResourcesM[facility] W/AUTO [id number] 23:52:00 Test Item Value Reference Range Interpretation [...] = MX#) 0.8 k/mm3 0.1-0.8 N LIVER [id number] 20:04:00 Test Item Value Reference Range Interpretation Comments TOTAL PROTEIN (test code 6.7 GM/DL 5.0-8.0 N Per formed by = PROT) 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 [facility] ALBUMIN (test code = 3.4 [...] 67 UNITS/L 25-125 N LYNDSEY) BASIC METABOLIC [id number] 19:54:00 Test Item Value Reference Range Interpretation [...] POCGLU) 81 MG/DL - CT ABD PELVIS W/[id number] 00:00:00 [facility] MARIA ISABEL JOSEPH : 1970 Sex: M Name: MARIA ISABEL JOSEPH FSED : 1970 Age/S: 51 / M [address] [facility] Unit #: [id number] Loc: [place] [address] Phys: Raffaele Levi MD Acct: [id number] Dis Date: Status: PRE ER PHONE #: Exam Date: 09/23/20211999 FAX #: Reason: RUQ PAIN, VOMITING EXAMS: CPT CODE: [id number] CT ABD PELVIS W/CONT 38002VJSEBHCOW INFORMATION: Exam: CT Abdomen And Pelvis With [...] [address] [facility] Unit #: [id number] Loc: [place] [address] Phys: Raffaele Levi MD Acct: [id number] Dis Date: Status: PRE ER PHONE #: Exam Date: 09/23/20211999 FAX #: Reason: RUQ PAIN, VOMITING EXAMS: CPT CODE: [id number] CT ABD PELVIS W/CONT 32151 <Continued> abdominal small bowel loops may relate to incomplete luminal distention or enteritis. 2. 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 No obstruction. at 2049 Reported and signed by: Juan Juarez M.D. CC: Raffaele Levi MD Technologist:Stephanie Albrecht, RT(R)(CT) CTDI: DLP: Trnscb Date/Time: 09/23/2021 (2048) [email or web address] Orig Print D/T: S: 09/23/2021 (2049) PAGE 2 Signed Report COMPREHENSIVE METABOLIC [id number] 11:51:00 Test Item Value Reference Range Interpretation [...] Units/L 50.0-136.0 N code = ALKP) PROTHROMBIN [id number] 11:41:00 Test Item Value Reference Range Interpretation Comments PROTHROMBIN TIME 10.9 SECONDS 9.9-12.8 N PATIENT (test code = PTP) INTERNATIONAL NORMAL 0.9 0.89-1.14 N THE INR IS TO BE USED RATIO (test code = ONLY FOR MONITORING INR) ORAL ANTICOAGULANTTH ERAPY. 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 [facility] BASIC METABOLIC [id number] 05:21:00 Test Item Value Reference Range Interpretation [...] (test code = POCGLU) 92 MG/DL GLUCOSE [id number] 05:19:00 Test Item Value Reference Range Interpretation Comments GLUCOSE BEDSIDE (test 51 MG/DL 70-110 L [facility] by certified code = GLUBED) 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 [facility] CBC W/AUTO [id number] 14:00:00 Test Item Value Reference Range Interpretation [...] MX#) 0.2 k/mm3 0.1-0.8 N CBC W/AUTO [id number] 00:07:00 Test Item Value Reference Range Interpretation [...] = LY#) 2.4 K/uL 1.0-3.8 N LIVER [id number] 16:14:00 Test Item Value Reference Range Interpretation Comments TOTAL PROTEIN (test code 7.5 GM/DL 5.0-8.0 N Per formed by = PROT) 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 [facility] ALBUMIN (test code = 3.9 [...] 65 UNITS/L 25-125 N LYNDSEY) BASIC METABOLIC [id number] 16:07:00 Test Item Value Reference Range Interpretation [...] POCGLU) 96 MG/DL - XR CHEST 1 [id number] 00:00:00 [facility] DORA JOSEPH : 1970 Sex: MFAX: Steve Urias MD [phone] [place]: MD St: PRE Name: DORA JOSEPH Castro FSED : 1970 Age/S: 51/M [address] [facility] Unit #: [id number] Loc: [place] [address] Phys: Steve Urias MD Acct: [id number] Dis Date: Status: PRE ER PHONE #: Exam Date: 06/27/2021 1549 FAX #: Reason: Abdominal Pain EXAMS: CPT CODE: [id number] XR CHEST 1 V 38245 PROCEDURE INFORMATION: Exam: XR Chest Exam date [...] MD Technologist: RT Alanna(R)(CT) Trnscrd Date/Time/By: 06/27/2021 (1550) : By: [email or web address] Orig Print D/T: S: 06/27/2021 (1147) PAGE 1 Signed Report- CT ABD PELVIS W/[id number] 00:00:00 [facility] DORA JOSEPH : 1970 Sex: MName: DORA JOSEPH FSED : 1970 Age/S: 51 / M [address] [facility] Unit #: [id number] Loc: [place] [address] Phys: Steve Urias MD Acct: [id number] Dis Date: Status: REG ER PHONE #: Exam Date: 06/27/2021 1621 FAX #: Reason: pain in region of colostomy EXAMS: CPT CODE: [id number] CT ABD PELVIS W/CONT 40654 PROCEDURE INFORMATION: Exam: CT Abdomen And Pelvis [...] : 1970 Age/S: 51 / M [address] [facility] Unit #: [id number] Loc: [place] [address] Phys: Steve Urias MD Acct: [id number] Dis Date: Status: REG ER PHONE #: Exam Date: 06/27/2021 1621 FAX #: Reason: pain in region of colostomy EXAMS: CPT CODE: [id number] CT ABD PELVIS W/CONT 34176 <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 There is no evidence of associated intestinal obstruction. 2. No additional acute CT abnormalities of the abdomen or pelvis are identified. SL:131 at 1650 Reported and signed by: Marco Raman M.D. CC: Steve Urias MD Technologist:Yecenia Carbajal RT(R)(CT) CTDI: DLP: Trnscb Date/Time: 06/27/2021 (1649) Italia Orig Print D/T: S: 06/27/2021 (1649) PAGE 2 Signed ReportCBC W/AUTO [id number] 09:20:00 Test Item Value Reference Range Interpretation [...] (test code NO = MDIFF) CBC W/AUTO [id number] 08:59:00 Test Item Value Reference Range Interpretation [...] REQUIRED (test code = MDIFF) BASIC METABOLIC [id number] 08:21:00 Test Item Value Reference Range Interpretation [...] 8.4 mg/dL 8.0-10.5 N CA) BASIC METABOLIC [id number] 08:34:00 Test Item Value Reference Range Interpretation [...] 8.4 mg/dL 8.0-10.5 N CA) CBC W/AUTO [id number] 07:41:00 Test Item Value Reference Range Interpretation [...] = MDIFF) UA RFLX MICR CULT IF [id number] 10:10:00 Test Item Value Reference Range Interpretation [...] 100.4 FSpecimen Description: [facility]REAM[facility]OL[facility] [id number] 04:13:00 Test Item Value Reference Range Interpretation [...] mg/dL 8.0-10.5 N CA) Coronavirus 2019 nCoV [id number] 22:03:00 Test Item Value Reference Range Interpretation Comments Coronavirus 2019 Negative Negative Performed b y certified nCoV 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 Negative result s do not preclude RHTU-EoR-1ngdua tion and should not be u sed as the sole basis forp atient management deci sions. Negative result s should beconsidered in the context of a patient's recent exposures,histo ry, presence of clinical sig ns and symptoms consis tentwith COVID-19. CBC W/AUTO [id number] 21:11:00 Test Item Value Reference Range Interpretation [...] MX#) 0.6 k/mm3 0.1-0.8 N BASIC METABOLIC [id number] 19:00:00 Test Item Value Reference Range Interpretation [...] POCGLU) 92 MG/DL - CT ABD PELVIS W/[id number] 00:00:00 [facility] DORA JOSE[facility] : 1970 Sex: MName: DORA JOSEPH FSED : 1970 Age/S: 51 / M [address] [facility] Unit #: [id number] Loc: [place] [address] Phys: Marcello Benoit MD Acct: [id number] Dis Date: Status: REG KARLIE #: Exam Date: 04/28/20211913 FAX #: Reason: epigastric and LLQ pain, R-sided colostomy EXAMS:CPT CODE: [id number] CT ABD PELVIS W/CONT 87328 PROCEDURE INFORMATION: Exam: CT Abdomen And Pelvis [...] 1 Signed Report (CONTINUED) Name: DORA JOSEPH [facility] : 1970 Age/S: 51 / M [address] [facility] Unit #: [id number] Loc: [place] [address] Phys: Marcello Benoit MD Acct: [id number] Dis Date: Status: REG ER PHONE #: Exam Date: 04/28/2021 1914 FAX #: Reason: epigastric and LLQ pain, R-sided colostomy EXAMS: CPT CODE: [id number] CT ABD PELVIS W/CONT 75217 <Continued> Reproductive: Unremarkable as visualized. Bones/joints: Unremarkable. No acute fracture. Soft tissues: Unremarkable. IMPRESSION: 1. 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 2. Mild long segment bowel wall thickening/mucosal prominence compatible with an enteritis. No evidence for obstruction. t 1955 Reported and signed by: Hector Nichols M.D. 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 Acct: [id number] Dis Date: Status: ADM IN PHONE #: [phone] Exam Date: 02/25/2020 1036 FAX #: Reason: abdominal distention EXAMS: CPT: [id number] XR ABDOMEN 1 V 10732 Fluoro Time: DAP (Gy m2): Air Kerma [...] the left lower quadrant (not previously seen) [id number] Reported and signed by: Sol Paige MD CC: Andre Solano; Mark Perea MD PAGE 1 Signed Report Name: DORA JOSEPH [facility] : 1970 Age/S: 50 / M [address] Unit #: [id number] Loc: [place] [address] 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 Acct: [id number] Dis Date:Status: ADM IN PHONE #: [phone] Exam Date: 02/25/2020 1036 FAX #: Reason: abdominal distentionEXAMS: CPT: [id number] XR ABDOMEN 1 V 27843 Fluoro Time: DAP (Gy m2): Air Kerma (mGy): <Continued> Technologist: RT Prashant(R) Trnscb Date/Time: 02/25/2020 (8163) [email or web address] Orig Print D/T: S: 02/25/2020 (9563) PAGE 2 Signed Report COMPREHENSIVE METABOLIC [id number] 08:20:00 Test Item Value Reference Range Interpretation [...] 50-136 L TOTAL (test code = ALKP) [id number] 08:20:00 Test Item Value Reference Range Interpretation Comments MAGNESIUM (test code = MAG) 2.2 MG/DL 1.8-2.4 N THYROID STIMULATING [id number] 08:20:00 Test Item Value Reference Range Interpretation Comments THYROID STIMULATING HORMONE 5.430 mcIU/ML 0.340-4.820 H (test code = TSH) CBC W/AUTO [id number] 07:55:00 Test Item Value Reference Range Interpretation [...] N NRBC#) UA RFLX MICR CULT IF [id number] 12:29:00 Test Item Value Reference Range Interpretation [...] culture: Suprapubic PainUA RFLX MICR CULT IF [id number] 12:29:00 Test Item Value Reference Range Interpretation [...] for culture: Suprapubic PainCOVID 19 Asymptomatic IH [id number] 22:09:00 Test Item Value Reference Range Interpretation [...] tent with COVID-19. - CT ABD PELVIS W/[id number] 21:10:00 Name: DORA JOSEPH [facility] : 1970 Age/S: 50 / M [address] Unit #: [id number] Loc: [place] [address] Phys: Evin Castellanos MD Acct: [id number] Dis Date: Status: REG ER PHONE #: [phone] Exam Date: 02/23/20202047 FAX #: Reason: diffuse abdomen pain and distention EXAMS: CPT: [id number] CT ABD PELVIS W/CONT 78292 EXAM: - CT ABD PELVIS W/CONT LOCATION: [...] 1 Signed Report (CONTINUED) Name: DORA JOSEPH [place] : 1970 Age/S: 50 / M [address] Unit #: [id number] Loc: [place] [address] Phys: Evin Castellanos MD Acct: [id number] Dis Date: Status: REG ER PHONE #: [phone] Exam Date: 02/23/20202047 FAX #: Reason: diffuse abdomen pain and distention EXAMS: CPT: [id number] CTABD PELVIS W/CONT 30325 <Continued> CT. No bowel wall thickening or [...] by: Marybel José M.D. CC: Susana Meza DENTURE PROCESSOR; Carl Luevano MD Technologist:Rudy Zuniga, RT(R)(CT)(MRI) CTDI: DLP: Trnscb Date/Time: 02/23/2020 (2109) [email or web address].[email or web address].TH15 Orig Print D/T: S: 02/23/2020 (2112) PAGE 2 Signed Report- XR CHEST 1 [id number] 21:03:00 Name: DORA JOSEPH [place] : 1970 Age/S: 50 / M [address] Unit #: [id number] Loc: [place] [address] Phys: Evin Castellanos MD Acct: [id number] Dis Date: Status: REG ER PHONE #: [phone] Exam Date: 02/23/20202055 FAX #: Reason: Code Sepsis EXAMS: CPT: [id number] XRCHEST 1 V 63870 Fluoro Time: DAP (Gy m2): Air Kerma [...] disease. 2. Chronic colonic air distention unchanged. [id number] Reported and signed by: Monica Quijano MD CC: Susana Meza DENTURE PROCESSOR; Carl Luevano MD PAGE 1 Signed Report Name: DORA JOSEPH [facility] : 1970 Age/S: 50 / M [address] Unit #: [id number] Loc: [place] [address] Phys: Evin Castellanos MD Acct: [id number] Dis Date:Status: REG ER PHONE #: [phone] Exam Date: 02/23/20202055 FAX #: Reason: Code Sepsis EXAMS: CPT: [id number] XR CHEST 1 V 09257 Fluoro Time: DAP (Gy m2): Air Kerma (mGy): <Continued> Technologist: Rudy Zuniga RT(R)(CT)(MRI) Trnscb Date/Time: 02/23/2020 (2102) Alanis Orig Print D/T: S:02/23/2020 (2106) PAGE 2 Signed ReportBASIC METABOLIC [id number] 20:02:00 Test Item Value Reference Range Interpretation [...] 8.5-10.1 N Completed by Nursing: NOHEPATIC FUNCTION [id number] 20:02:00 Test Item Value Reference Range Interpretation [...] N code = ALKP) Completed by Nursing: [id number] 20:02:00 Test Item Value Reference Range Interpretation Comments LIPASE (test code = LIP) 97 Unit/L 114-286 L Completed by Nursing: [id number] 20:02:00 Test Item Value Reference Range Interpretation [...] one another as nume rical results may rbittani yby method. Completed by Nursing: NOLACTIC [id number] 19:59:00 Test Item Value Reference Range Interpretation Comments LACTIC ACID (test code = LACT) 1.2 mmol/L 0.4-2.0 N CBC W/AUTO [id number] 19:46:00 Test Item Value Reference Range Interpretation [...] CRITERIA = MDIFF) - XR ABDOMEN 2 [id number] 06:22:00 Name: DORA JOSEPH [facility] : 1970 Age/S: 50 / M [address] Unit #: [id number] Loc: [place] [address] Phys: León Robertson MD Acct: [id number] Dis Date: Status: ADM INPHONE #: [phone] Exam Date: 02/19/2020 044 FAX #: Reason: megacolon EXAMS: CPT: [id number] XR ABDOMEN 2 V 09218 Fluoro Time: DAP (Gy m2): Air Kerma [...] and signed by: David Rodríguez M.D. CC: Lóen Robertson MD; Coco Nova MD PAGE 1 Signed Report Name: DORA JOSEPH [facility] : 1970 Age/S: 50 / M [address] Unit #: [id number] Loc: [place] [address] Phys: León Robertson MD Acct: [id number] Dis Date: Status: ADM IN PHONE #: [phone] Exam Date: 02/19/2020 0440 FAX #: Reason: megacolon EXAMS:CPT: [id number] XR ABDOMEN 2 V 31479 Fluoro Time: DAP (Gy m2): Air Kerma (mGy): <Continued> Technologist: Carrie Barnett, RT(R)(CT) Trnscb Date/Time: 02/19/2020 (06) [email or web address] Orig Print D/T: S: 02/19/2020 (0644) PAGE 2 Signed ReportBASIC METABOLIC [id number] 05:52:00 Test Item Value Reference Range Interpretation [...] CA) 8.5 MG/DL 8.5-10.1 N CBC W/AUTO [id number] 05:40:00 Test Item Value Reference Range Interpretation [...] NO DIFF/SCN CRITERIA = MDIFF) BASIC METABOLIC [id number] 06:52:00 Test Item Value Reference Range Interpretation [...] CA) 8.3 MG/DL 8.5-10.1 L CBC W/AUTO [id number] 06:39:00 Test Item Value Reference Range Interpretation [...] DIFF/SCN CRITERIA = MDIFF) Coronavirus 2018 nCoV [id number] 05:35:00 Test Item Value Reference Range Interpretation [...] tent with COVID-19. - XR ABDOMEN 1 [id number] 07:32:00 Name: DORA JOSEPH [facility] : 1970 Age/S: 49 / M [address] Unit #: [id number] Loc: [place] [address] Phys: Jay Mayo MD Acct: [id number] Dis Date: Status: ADM IN PHONE #: [phone] Exam Date: 01/10/2020 0658 FAX #: Reason: follow up colonic ileus EXAMS:CPT: [id number] XR ABDOMEN 1 V 48621 Fluoro Time: DAP (Gy m2): Air Kerma [...] Signed Report Name: DORA JOSEPH [facility] : 1970 Age/S: 49 / M [id number] [address] Unit #: [id number] Loc: [place] [address] Phys: Jay Mayo MD Acct: [id number] Dis Date: Status: ADM IN PHONE #: [phone] Exam Date: 01/10/2020 0658 FAX #: Reason: follow up colonic ileus EXAMS: CPT: [id number] XR ABDOMEN 1 V 86671 Fluoro Time: DAP (Gy m2): Air Kerma (mGy): <Continued> Technologist: Bakari De Leon RT(R)(CT) Trnscb Date/Time: 01/10/2020 (731) [id number] Orig Print D/T: S: 01/10/2020 (0736) PAGE 2 Signed ReportCOMPREHENSIVE METABOLIC [id number] 05:56:00 Test Item Value Reference Range Interpretation [...] TOTAL (test code = ALKP) CBC W/AUTO [id number] 05:42:00 Test Item Value Reference Range Interpretation [...] = NO DIFF/SCN CRITERIA MDIFF) BASIC METABOLIC [id number] 06:59:00 Test Item Value Reference Range Interpretation [...] code = CA) 8.5 MG/DL 8.5-10.1 N [id number] 06:59:00 Test Item Value Reference Range Interpretation Comments MAGNESIUM (test code = MAG) 2.2 MG/DL 1.8-2.4 PROTHROMBIN [id number] 06:39:00 Test Item Value Reference Range Interpretation Comments PT PATIENT (test code = PTP) 13.1 SECONDS 9.3-12.9 H INTERNATIONAL NORMAL RATIO 1.16 INR Unit 0.8-1.2 N (test code = INR) CBC W/AUTO [id number] 06:22:00 Test Item Value Reference Range Interpretation [...] DIFF/SCN CRITERIA MDIFF) - XR ABDOMEN 1 [id number] 05:39:00 Name: DORA JOSEPH [facility] : 1970 Age/S: 49 / M [address] Unit #: [id number] Loc: [place] [address] Phys: Anrde SolanoP Acct: [id number] Dis Date: Status: ADM IN PHONE #: [phone] Exam Date: 01/09/2020522 FAX #: Reason: colonic ileus/obstruction EXAMS: CPT: [id number] XR ABDOMEN 1 V 03842 Fluoro Time: DAP (Gy m2): Air Kerma [...] Signed Report Name: DORA JOSEPH [facility] : 1970 Age/S: 49 / M [address] Unit #: [id number] Loc: [place] [address] 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P Acct: [id number] Dis Date: Status: ADM IN PHONE #: [phone] Exam Date: 01/09/2020522 FAX #: Reason: colonic ileus/obstruction EXAMS: CPT: [id number] XR ABDOMEN 1 V 38547 Fluoro Time: DAP (Gy m2): Air Kerma (mGy): <Continued> Technologist: Carrie Barnett, RT(R)(CT) Trnscb Date/Time: 01/09/2020 (0539) t.MANOJ Orig Print D/T: S: 01/09/2020 (0542) PAGE 2 Signed ReportCoronavirus 2018 nCoV [id number] 22:38:00 Test Item Value Reference Range Interpretation Comments Coronavirus 2019 nCoV Bedside (test Negative Negative code = [id number]) Emergent procedure? YESCoronavirus 2018 nCoV [id number] 22:38:00 Test Item Value Reference Range Interpretation Comments Coronavirus 2019 nCoV Bedside (test Negative Negative code = [id number]) Emergent procedure? YESBASIC METABOLIC [id number] 18:42:00 Test Item Value Reference Range Interpretation [...] CA) 8.5 MG/DL 8.5-10.1 N CBC W/AUTO [id number] 10:50:00 Test Item Value Reference Range Interpretation [...] = NO DIFF/SCN CRITERIA MDIFF) COMPREHENSIVE METABOLIC [id number] 10:46:00 Test Item Value Reference Range Interpretation [...] 50-136 N TOTAL (test code = ALKP) [id number] 10:46:00 Test Item Value Reference Range Interpretation Comments MAGNESIUM (test code = MAG) 2.6 MG/DL 1.8-2.4 H COMPREHENSIVE METABOLIC [id number] 10:34:00 Test Item Value Reference Range Interpretation [...] TOTAL (test Unit/L 50-136 code = ALKP) [id number] 10:34:00 Test Item Value Reference Range Interpretation Comments MAGNESIUM (test code = MAG) MG/DL 1.8-2.4 - XR ABDOMEN 1 [id number] 08:28:00 Name: DORA JOSEPH [facility] : 1970 Age/S: 49 / M [address] Unit #: [id number] Loc: [place] [address] Phys: Yas Edwards MD Acct: [id number] Dis Date: Status: ADM IN PHONE #: [phone] Exam Date: 01/08/2020509 FAX #: Reason: ileus EXAMS: CPT: [id number] XR ABDOMEN 1V 36505 Fluoro Time: DAP (Gy m2): Air Kerma [...] Signed Report Name: DORA JOSEPH [facility] : 1970 Age/S: 49 / M [address] [facility] Unit #: [id number] Loc: [place] [address] Phys: Berta Edwards Acct: [id number] Dis Date: Status: ADM IN PHONE #: [phone] Exam Date: 01/08/2020509 FAX#: Reason: ileus EXAMS: CPT: [id number] XR ABDOMEN 1 V 39234 Fluoro Time: DAP (Gy m2): Air Kerma (mGy): <Continued> Technologist: Carrie Barnett, RT(R)(CT); ... Trnscb Date/Time: 01/08/2020 (827) t.FLEXR.JBRAN Orig Print D/T: S: 01/08/2020 (830) PAGE 2 Signed ReportCOMPREHENSIVE METABOLIC [id number] 07:08:00 Test Item Value Reference Range Interpretation [...] 50-136 L TOTAL (test code = ALKP) [id number] 07:08:00 Test Item Value Reference Range Interpretation Comments MAGNESIUM (test code = MAG) 1.3 MG/DL 1.8-2.4 L COMPREHENSIVE METABOLIC [id number] 05:16:00 Test Item Value Reference Range Interpretation [...] 50-136 L TOTAL (test code = ALKP) [id number] 05:16:00 Test Item Value Reference Range Interpretation Comments MAGNESIUM (test code = MAG) 1.3 MG/DL 1.8-2.4 L CBC W/AUTO [id number] 05:02:00 Test Item Value Reference Range Interpretation [...] (test code = NO DIFF/SCN CRITERIA MDIFF) [id number] 16:51:00 Test Item Value Reference Range Interpretation Comments MAGNESIUM (test code = MAG) 2.3 MG/DL 1.8-2.4 N FE W/TOTAL IRON BINDING CAP.2020-01-07 16:51:00 Test Item Value Reference Range Interpretation Comments SERUM IRON (test code = IRON) 38 mcG/DL 65-175 L TOTAL IRON BINDING CAPACITY (test 322 mcG/DL 250-450 N code = TIBC) IRON SATURATION (test code = 12 % calc 12-57 N FESAT) [id number] 16:51:00 Test Item Value Reference Range Interpretation Comments FERRITIN (test code = DAVID) 17.6 NG/ML 5.0-323.0 N CALCIUM [id number] 16:50:00 Test Item Value Reference Range Interpretation Comments CALCIUM IONIZED (test code = NAVEED) 1.12 mmol/L 1.12-1.32 N - XR ABDOMEN 1 [id number] 10:29:00 Name: DORA JOSEPH [facility] : 1970 Age/S: 49 / M [address] Unit #: [id number] Loc: [place] [address] Phys: Verona Forst PA-C Acct: [id number] Dis Date: Status: ADM IN PHONE #: [phone] Exam Date: 01/07/2020711 FAX #: Reason: reassess SBO EXAMS: CPT: [id number] XR ABDOMEN 1 V 14675 Fluoro Time: DAP (Gy m2): Air Kerma [...] Signed Report Name: DORA JOSEPH [facility] : 1970 Age/S: 49 / M [address] Unit #: [id number] Loc: [place] [address] Phys:Verona Frost PA-C Acct: [id number] Dis Date: Status: ADM IN PHONE #: [phone] Exam Date: 01/07/2020711 FAX #: Reason: reassess SBO EXAMS: CPT: [id number] XR ABDOMEN 1 V 30139 Fluoro Time: DAP (Gy m2): Air Kerma (mGy): <Continued> Technologist: Bakari De Leon RT(R)(CT) Trnscb Date/Time: 01/07/2020 (1021) tUMBERTO Orig Print D/T: S: 01/07/2020 (3554) PAGE 2 Signed ReportBASIC METABOLIC PANEL 2020-01-07 [...] CA) 5.4 MG/DL 8.5-10.1 LL CBC W/AUTO [id number] 06:49:00 Test Item Value Reference Range Interpretation [...] = NO DIFF/SCN CRITERIA MDIFF) COMPREHENSIVE METABOLIC [id number] 06:10:00 Test Item Value Reference Range Interpretation [...] TOTAL (test code = ALKP) CBC W/AUTO [id number] 05:52:00 Test Item Value Reference Range Interpretation [...] DIFF/SCN CRITERIA MDIFF) - XR ABDOMEN 1 [id number] 01:30:00 Name: DORA JOSEPH [facility] : 1970 Age/S: 49 / M [address] Unit #: [id number] Loc: [place] [address] Phys: Ted Coleman DENTURE PROCESSOR Acct: [id number] Dis Date: Status: ADM INPHONE #: [phone] Exam Date: 01/06/202099 FAX #: Reason: NG Tube Placement Verification EXAMS: CPT: [id number] XR ABDOMEN 1 V 34789 Fluoro Time: DAP (Gy m2): Air Kerma [...] M.D. CC: Mark Perea MD; Ted Miller NP PAGE 1 Signed Report Name: DORA JOSEPH [facility] : 1970 Age/S: 49 /M [address] Unit #: [id number] Loc: [place] [address] Phys: Ted Coleman NP Acct: [id number] Dis Date: Status: ADM IN PHONE #: [phone] Exam Date: 01/06/202099 FAX #: Reason: NGTube Placement Verification EXAMS: CPT: [id number] XR ABDOMEN 1 V 66827 Fluoro Time: DAP (Gy m2): Air Kerma (mGy): <Continued> Technologist: RT Tatum(R) Trnscb Date/Time: 01/06/2020 (129)Herrera Orig Print D/T: S: 01/06/2020 (132) PAGE 2 Signed Report- CT ABD PELVIS W/O [id number] 19:42:00 [place]: St: REG -- Name: DORA JOSEPH [facility] : 1970 Age/S: 49/M [address] [facility] Unit: [id number] Loc: [place], [place]: [place] [address] Acct: [id number] Dis Date: Status: REG ER PHONE #: [phone] Exam Date: 12/13/20191924 FAX #: [phone] Reason: pain EXAMS: CPT CODE: [id number] CT ABD PELVIS W/O CONT 89954 Examination: CT scan abdomen and pelvis without [...] ALMANZAR Trnscrd Dt/Tm: 12/13/2019 (1941) GarettVR5 Orig Pr int D/T: S: 12/13/2019 (5 PAGE 1 Signed ReportBASIC METABOLIC [id number] 18:49:00 Test Item Value Reference Range Interpretation [...] code = CA) 8.6 mg/dl 8.0-10.5 N [id number] 18:49:00 Test Item Value Reference Range Interpretation Comments LIPASE (test code = LIP) 97 Units/L 65.0-230.0 N CBC W/AUTO [id number] 18:38:00 Test Item Value Reference Range Interpretation [...] K/mm3 0.0-0.2 N - XR CHEST 1 [id number] 18:36:00 [place]: St: PRE -- Name: OPALDORA ADAMIC [facility] : 1970 Age/S: 49/M [address] [place] Unit #: [id number] Loc: [place], [place] Phys: [place] [address] Acct: [id number] Dis Date:Status: PRE ER PHONE #: [phone] Exam Date: 12/13/2019 1822 FAX #: [phone] Reason: SOB EXAMS: CPT CODE: [id number] XR CHEST 1 V 51488 Examination: One view chest x-ray Location code: [...] : By: GarettVR5 PAGE 1 Signed Report [place]: St: PRE ----- Name: DORA JOSEPH [facility] : 1970 Age/S: 49/M [address] [facility] Unit #: [id number] Loc: [place], [place]: [place] [address] Acct: [id number] Dis Date: Status: PRE ER PHONE #: [phone] Exam Date: 12/13/20191821 FAX #: [phone] Reason: SOB EXAMS: CPT CODE: [id number] XR CHEST 1 V 32018 (Continued) Orig Print D/T: S: 12/13/2019 (1839) PAGE 2 Signed ReportCB W/PLT COUNT & AUTO [id number] 08:02:00 Test Item Value Reference Range Interpretation [...] Received comment: User comments: Slide comments:BASIC METABOLIC [id number] 07:34:00 Test Item Value Reference Range Interpretation [...] S NOT APPLICABLE FOR DIALYSIS PATIEN TS. [id number] 07:26:00 Test Item Value Reference Range Interpretation Comments PHOSPHORUS (BEAKER) (test code = 3.1 mg/dL 2.3-4.7 604) [id number] 07:26:00 Test Item Value Reference Range Interpretation Comments MAGNESIUM (BEAKER) (test code = 1.6 mg/dL 1.6-2.6 627) RAD, ABDOMEN/KUB, 1 VIEW [id number] 07:04:00Reason for exam:->ileusFINAL REPORT Abdomen , one [...] MDReport Verified Date/Time: 04/03/2019 07:04:46 Reading Location: [facility] C0[facility] Ortho Consult Reading Room BASIC METABOLIC [id number] 06:47:00 Test Item Value Reference Range Interpretation [...] code = 413) URINALYSIS WITH MICROSCOPIC IF [id number] 22:01:00 Test Item Value Reference Range Interpretation [...] 463) SOURCE(BEAKER) (test code = 2795) URINALYSIS [id number] 22:01:00 Test Item Value Reference Range Interpretation Comments RBC UA (BEAKER) (test code = 519) 18 /HPF WBC UA (BEAKER) (test code = 520) 1 /HPF CALCIUM OXALATE CRYSTALS (BEAKER) Occasional (test code = 518) [id number] 05:49:00 Test Item Value Reference Range Interpretation Comments PHOSPHORUS (BEAKER) (test code = 2.5 mg/dL 2.3-4.7 604) [id number] 05:49:00 Test Item Value Reference Range Interpretation Comments MAGNESIUM (BEAKER) (test code = 1.7 mg/dL 1.6-2.6 627) BASIC METABOLIC [id number] 05:49:00 Test Item Value Reference Range Interpretation [...] (BEAKER) (test code = 413) BASIC METABOLIC [id number] 06:19:00 Test Item Value Reference Range Interpretation [...] S NOT APPLICABLE FOR DIALYSIS PATIEN TS. [id number] 06:10:00 Test Item Value Reference Range Interpretation Comments MAGNESIUM (BEAKER) 1.8 mg/dL 1.6-2.6 Specimen slightly (test code = 627) hemolyzed [id number] 06:10:00 Test Item Value Reference Range Interpretation [...] (BEAKER) (test code = 413) BASIC METABOLIC [id number] 04:57:00 Test Item Value Reference Range Interpretation [...] S NOT APPLICABLE FOR DIALYSIS PATIEN TS. [id number] 04:55:00 Test Item Value Reference Range Interpretation Comments PHOSPHORUS (BEAKER) (test code = 2.6 mg/dL 2.3-4.7 604) [id number] 04:55:00 Test Item Value Reference Range Interpretation Comments MAGNESIUM (BEAKER) (test code = 1.8 mg/dL 1.6-2.6 627) CT, [id number] 14:16:00FINAL REPORT TECHNIQUE: CT of the abdomen [...] Marsha Kimort Verified Date/Time: 03/29/2019 14:16:01Reading Location: [address] Body Reading Room , ABDOMEN/KUB, 1 VIEW [id number] 10:23:00Reason for exam:->evaluate ileusFINAL REPORT Technique: Supine [...] 10:23:29 Reading Location: [facility] Reading Room CBC (HEMOGRAM ONLY)2019-03-29 08:10:00 [...] WBC 0-0 (BEAKER) (test code = 413) [id number] 06:20:00 Test Item Value Reference Range Interpretation Comments PHOSPHORUS (BEAKER) (test code = 2.6 mg/dL 2.3-4.7 604) [id number] 06:20:00 Test Item Value Reference Range Interpretation Comments MAGNESIUM (BEAKER) (test code = 2.0 mg/dL 1.6-2.6 627) BASIC METABOLIC [id number] 06:20:00 Test Item Value Reference Range Interpretation [...] TS. RAD, ABDOMEN SERIES W/ UPRIGHT PA [id number] 22:18:00Reason for exam:- >eval ileusFINAL REPORT CLINICAL [...] Date/Time: 03/28/2019 22:18:50 RAD, ABDOMEN/KUB, 1 VIEW [id number] 11:23:00Reason for exam:->abdominal distensionShould this be performed [...] MDReport Verified Date/Time: 03/28/2019 11:23:34 Reading Location: [facility] Radiology Reading Room TISSUE [id number] 09:00:00Surgical Pathology Report Case: [id number] Authorizing Provider: Graciela Garrison MD Collected: 03/25/2019 1133 Ordering Location: [facility] PERIOPERATIVE Received: 03/25/2019 1527 SERVICES [...] FOR MALIGNANCY Signing Pathologist Direct Phone Line: [phone] signed by Priyanka Celaya MD on 03/28/2019 at 9:00 [id number] and postop diagnosis: ileostomy statusA. End ileostomy; [...] nodes are not identified in the mesentery. Technical Services Manager sections are submitted. Section code: A, international account representative section of each end of first mentioned segment of small bowel; A2, international account representative of first mentioned segment of small bowel mucosa; A3, area of hemorrhagic mesentery of second mentioned segment of mucosa; A4, international account representative of hemorrhagic mucosa at open end of second portion of small bowel; A5, international account representative of stapled margin from secondmentioned segment [...] 0.2 cm. No gross lesions are identified. Technical Services Manager sections are submitted. Section code: B1, proximal margin en face and tip; B2, international account representative cross section. CG/pl Performed.[id number] 06:23:00 Test Item Value Reference Range Interpretation Comments PHOSPHORUS (BEAKER) (test code = 2.7 mg/dL 2.3-4.7 604) [id number] 06:23:00 Test Item Value Reference Range Interpretation Comments MAGNESIUM (BEAKER) (test code = 1.9 mg/dL 1.6-2.6 627) BASIC METABOLIC [id number] 06:23:00 Test Item Value Reference Range Interpretation [...] S NOT APPLICABLE FOR DIALYSIS PATIEN TS. [id number] 08:20:00 Test Item Value Reference Range Interpretation Comments PHOSPHORUS (BEAKER) (test code = 2.6 mg/dL 2.3-4.7 604) [id number] 08:20:00 Test Item Value Reference Range Interpretation Comments MAGNESIUM (BEAKER) (test code = 1.8 mg/dL 1.6-2.6 627) BASIC METABOLIC [id number] 08:20:00 Test Item Value Reference Range Interpretation [...] S NOT APPLICABLE FOR DIALYSIS PATIEN TS. [id number] 06:06:00 Test Item Value Reference Range Interpretation Comments PHOSPHORUS (BEAKER) (test code = 4.1 mg/dL 2.3-4.7 604) [id number] 06:06:00 Test Item Value Reference Range Interpretation Comments MAGNESIUM (BEAKER) (test code = 1.8 mg/dL 1.6-2.6 627) BASIC METABOLIC [id number] 06:06:00 Test Item Value Reference Range Interpretation [...] S NOT APPLICABLE FOR DIALYSIS PATIEN TS. [id number] 06:03:00 Test Item Value Reference Range Interpretation Comments PHOSPHORUS (BEAKER) (test code = 4.2 mg/dL 2.3-4.7 604) [id number] 06:03:00 Test Item Value Reference Range Interpretation Comments MAGNESIUM (BEAKER) (test code = 2.0 mg/dL 1.6-2.6 627) BASIC METABOLIC [id number] 06:03:00 Test Item Value Reference Range Interpretation [...] WBC 0-0 (BEAKER) (test code = 413) [id number] 05:52:00 Test Item Value Reference Range Interpretation Comments PHOSPHORUS (BEAKER) (test code = 4.2 mg/dL 2.3-4.7 604) [id number] 05:52:00 Test Item Value Reference Range Interpretation Comments MAGNESIUM (BEAKER) (test code = 1.9 mg/dL 1.6-2.6 627) BASIC METABOLIC [id number] 05:52:00 Test Item Value Reference Range Interpretation [...] S NOT APPLICABLE FOR DIALYSIS PATIEN TS. [id number] 06:51:00 Test Item Value Reference Range Interpretation Comments PHOSPHORUS (BEAKER) (test code = 4.3 mg/dL 2.3-4.7 604) [id number] 06:51:00 Test Item Value Reference Range Interpretation Comments MAGNESIUM (BEAKER) (test code = 2.0 mg/dL 1.6-2.6 627) BASIC METABOLIC [id number] 06:51:00 Test Item Value Reference Range Interpretation [...] 0-0 (BEAKER) (test code = 413) TISSUE [id number] 11:50:00Surgical Pathology Report Case: [id number] Authorizing Provider: Mela Larson MD Collected: 03/18/2019 1827 Ordering Location: [facility] PERIOPERATIVE Received: 03/21/2019 0823 SERVICES Pathologist: Jordan Celaay MD Specimen: Small Bowel, NOS A. SMALL BOWEL, ILEOSTOMY PROLAPSE, TAKEDOWN: - ANASTOMOSIS SITE WITH ACTIVE CHRONIC INFLAMMATION AND FOCAL ISCHEMIC CHANGES - MUCOSAL RESECTION MARGINS, NEGATIVE FOR MALIGNANCY - ONE BENIGN LYMPH NODE (0/1) - NEGATIVE FOR DYSPLASIA OR MALIGNANCYSigning Pathologist Direct Phone Line: [phone] signed by Jordan Celaya MDon 03/22/2019 at 11:50 [id number] of ileostomyReceived in a container labeled "small [...] 0.5 to 1.2 cm in greatest dimension. Technical Services Manager sections are submitted as follows: A1-A2, mucosal resection margin, en face; A3-A6, international account representative sections of the possible ostomy stump; A7-A11, serial international account representative sections from mucosal resection margin to the possible ostomy stump; A12, two lymph nodes. TH/plPerformed.[id number] 06:58:00 Test Item Value Reference Range Interpretation Comments PHOSPHORUS (BEAKER) (test code = 3.8 mg/dL 2.3-4.7 604) [id number] 06:58:00 Test Item Value Reference Range Interpretation Comments MAGNESIUM (BEAKER) (test code = 2.0 mg/dL 1.6-2.6 627) BASIC METABOLIC [id number] 06:58:00 Test Item Value Reference Range Interpretation [...] PATIEN TS. CBC W/PLT COUNT & AUTO [id number] 05:42:00 Test Item Value Reference Range Interpretation [...] PERCENT (BEAKER) (test code = 2801) [place], [id number] 17:42:00Reason for exam:->evaluate for colon stricture as [...] Lopezort Verified Date/Time: 03/21/2019 17:42:21 Reading Location: [facility] C013X [facility] Consult Reading Room Electronically signed by: DAVID LOPEZ M.D. on03/21/2019 05:42 [id number] 03:58:00 Test Item Value Reference Range Interpretation Comments PHOSPHORUS (BEAKER) (test code = 3.0 mg/dL 2.3-4.7 604) [id number] 03:58:00 Test Item Value Reference Range Interpretation Comments MAGNESIUM (BEAKER) (test code = 2.0 mg/dL 1.6-2.6 627) BASIC METABOLIC [id number] 03:58:00 Test Item Value Reference Range Interpretation [...] PATIEN TS. CBC W/PLT COUNT & AUTO [id number] 03:20:00 Test Item Value Reference Range Interpretation [...] (BEAKER) (test code = 2801) BASIC METABOLIC [id number] 06:26:00 Test Item Value Reference Range Interpretation [...] S NOT APPLICABLE FOR DIALYSIS PATIEN TS. [id number] 06:05:00 Test Item Value Reference Range Interpretation Comments PHOSPHORUS (BEAKER) (test code = 2.2 mg/dL 2.3-4.7 L 604) [id number] 06:05:00 Test Item Value Reference Range Interpretation Comments MAGNESIUM (BEAKER) (test code = 2.0 mg/dL 1.6-2.6 627) CBC W/PLT COUNT & AUTO [id number] 05:25:00 Test Item Value Reference Range Interpretation [...] 0-1 PERCENT (BEAKER) (test code = 2801) [id number] 04:31:00 Test Item Value Reference Range Interpretation Comments PHOSPHORUS (BEAKER) (test code = 3.7 mg/dL 2.3-4.7 604) [id number] 04:31:00 Test Item Value Reference Range Interpretation Comments MAGNESIUM (BEAKER) (test code = 1.9 mg/dL 1.6-2.6 627) BASIC METABOLIC [id number] 04:31:00 Test Item Value Reference Range Interpretation [...] PATIEN TS. CBC W/PLT COUNT & AUTO [id number] 04:15:00 Test Item Value Reference Range Interpretation [...] 0-1 PERCENT (BEAKER) (test code = 2801) [id number] 06:41:00 Test Item Value Reference Range Interpretation Comments PHOSPHORUS (BEAKER) (test code = 3.1 mg/dL 2.3-4.7 604) [id number] 06:41:00 Test Item Value Reference Range Interpretation Comments MAGNESIUM (BEAKER) (test code = 1.9 mg/dL 1.6-2.6 627) BASIC METABOLIC [id number] 06:41:00 Test Item Value Reference Range Interpretation [...] PATIEN TS. CBC W/PLT COUNT & AUTO [id number] 06:36:00 Test Item Value Reference Range Interpretation [...] PERCENT (BEAKER) (test code = 2801) CT, [id number] 17:04:00No PO contrastFINAL REPORT ABDOMINAL AND PELVIS [...] MDReport Verified Date/Time: 03/17/2019 17:04:19 Reading Location: [facility] C013Y CT Body Reading Room XR ABDOMEN 2 [id number] 09:03:45XR ABDOMEN 2 VIEWSLOCATION: [id number]: Colstomy ProlapseCOMPARISON: Chest radiograph 04/15/2017, CT of [...] Nonspecific, nonobstructive bowel gas pattern.XR CHEST 1 [id number] 11:32:15EXAM: CHEST ONE VIEWINDICATION: Chest painCOMPARISON: None availableTECHNIQUE: AP view of the chest.FINDINGS: The cardiomediastinal silhouette is normal. The lungs are clearbilaterally. No pneumothoraxor pleural effusion is identified. Theosseous structures are unremarkable.IMPRESSION: No acute cardiopulmonary process.LOCATION: D24Zvhfj Type and [id number] 21:21:00 Test Item Value Reference Range Interpretation Comments ABO type (test code = ABO) O Rh Type (test code = RH) Positive Comprehensive Metabolic [id number] 20:36:00 Test Item Value Reference Range Interpretation [...] ofage have not been validated by gabbi funk MDRD study and rashi westfall be interpretedwith caution.eGFR Re sult Interpretation: eGFR > or = 60 is in t he Normal RangeeGF R < 60 may mean kidney diseaseeGFR < 1 5 may mean kidney failureRange s recommended by the National Kidney Foundation,http ://nkd ep.nih.gov Alcohol/Ethanol, [id number] 20:36:00 Test Item Value Reference Range Interpretation Comments Alcohol, Ethyl <0.01 g/dL 0.00-0.01 N Intoxicated 0 .080 g/dL (test code = ETOH) or more Prothrombin [id number] 20:00:00 Test Item Value Reference Range Interpretation Comments PT (test code = PT) 10.10 seconds 9.78-13.35 N INR (test code = INR) 0.88 Ratio 0.6-1.2 N Partial Thromboplastin [id number] 20:00:00 Test Item Value Reference Range Interpretation Comments aPTT (test code = PTT) 31.50 seconds 24.39-37.25 N CBC with [id number] 19:50:00 Test Item Value Reference Range Interpretation [...] code = ALYMPH) 2.2 K/cumm 0.5-4.6 N Benzie Abs (test code = AMONO) 0.4 K/cumm 0.0-1.2 N Eos Abs (test code = AEOS) 0.17 K/cumm 0.00-0.74 N Baso Abs (test code = ABASO) 0.0 K/cumm 0.00-0.21 N 00919& PELVIS W/O [id number] 17:36:28CT ABDOMEN AND PELVIS WITHOUT CONTRAST.CLINICAL HISTORY: [...]
--- NOTE | 2022-09-14 06:11 | EDPHYS ---
Physician Documentation [facility] Name: Rico Mcneill Age: 52 yrs Sex: Male : 1970 Arrival Date: 09/14/2022 Time: 05:57 Bed 5 Private MD: JEANNETTE Physician Clifton Ventura HPI: 09/14 06:13 This 52 yrs old Male presents to ER via Ambulatory with complaints of Ear Pain. rt 06:13 The patient presents with pain, that is acute. The complaints affect the left ear. rt Onset: The symptoms/episode began/occurred 3 day(s) ago. Modifying factors: The symptoms are alleviated by nothing, the symptoms are aggravated by nothing. Associated signs and symptoms: The patient has no apparent associated signs or symptoms. Severity of symptoms: At their worst the symptoms were mild. Presents to the ED with left ear pain for the past 3 days, of note, the patient was in the hospital during this time and was seen in the ED a few hours ago when he did not mention this complaint. There is no drainage, hearing loss. Denies other acute complaints at this time. Symptoms are moderate severity, aching nature, nonradiating, no other aggravating alleviating factors.. Historical: - Allergies: 06:05 NKDA; as6 - PMHx: 06:05 Hypertensive disorder; ileostomy; as6 - PSHx: 06:05 Small bowel resection with ileostomy; as6 - Immunization history:: Client reports receiving the 2nd dose of the Covid vaccine. - Social history:: Smoking status: Patient reports use of chewing tobacco. - Family history:: not pertinent. ROS: 06:13 Constitutional: Negative for fever, chills, and weight loss, Cardiovascular: Negative rt for chest pain, palpitations, and edema, Respiratory: Negative for shortness of breath, cough, wheezing, and pleuritic chest pain, Abdomen/GI: Negative for abdominal pain, nausea, vomiting, diarrhea, and constipation, Skin: Negative for injury, rash, and discoloration, Neuro: Negative for headache, weakness, numbness, tingling, and seizure, Psych: Negative for depression, anxiety, suicide ideation, homicidal ideation, and hallucinations. 06:13 ENT: Positive for ear pain, Negative for sinus congestion. Exam: 06:13 Constitutional: This is a well developed, well nourished patient who is awake, alert, rt and in no acute distress. Head/Face: Normocephalic, atraumatic. Neck: Trachea midline, no thyromegaly or masses palpated, and no cervical lymphadenopathy. Supple, full range of motion without nuchal rigidity, or vertebral point tenderness. No Meningismus. Chest/axilla: Normal chest wall appearance and motion. Nontender with no deformity. No lesions are appreciated. Cardiovascular: Regular rate and rhythm with a normal S1 and S2. No gallops, murmurs, or rubs. Normal PMI, no JVD. No pulse deficits. Respiratory: Lungs have equal breath sounds bilaterally, clear to auscultation and percussion. No rales, rhonchi or wheezes noted. No increased work of breathing, no retractions or nasal flaring. MS/ Extremity: Pulses equal, no cyanosis. Neurovascular intact. Full, normal range of motion. Neuro: Awake and alert, GCS 15, oriented to person, place, time, and situation. Cranial nerves II-XII grossly intact. Motor strength 5/5 in all extremities. Sensory grossly intact. Cerebellar exam normal. Normal gait. Psych: Awake, alert, with orientation to person, place and time. Behavior, mood, and affect are within normal limits. 06:13 ENT: External auditory canals are normal, no otitis externa. There is a scant effusion bilaterally, no erythema, no purulence, TMs are not bulging.. 06:13 Abdomen/GI: prolapsed ileostomy noted in the right lower quadrant, no abdominal tenderness. Vital Signs: 06:06 BP 112 / 73; Pulse 88; Resp 18 S; Temp 98.5(O); Pulse Ox 100% on R/A; Weight 68.04 kg as6 (R); Height 6 ft. 1 in. (185.42 cm) (R); Pain 9/10; 06:06 Body Mass Index 19.79 (68.04 kg, 185.42 cm) as6 MDM: 06:06 Patient medically screened. rt 06:13 Differential diagnosis: otitis media, otitis externa, acute otalgia, cerumen impaction. rt Data reviewed: vital signs, nurses notes, old medical records. I considered the following discharge prescriptions or medication management in the emergency department Antibiotics: At this time antibiotics are not recommended, Medications were administered in the Emergency Department. See MAR. Care significantly affected by the following Social Determinants of Health: Inadequate housing. Administered Medications: 06:17 Drug: Tylenol 1000 mg Route: PO; aa9 Disposition Summary: 09/14/22 06:11 Discharge Ordered Location: Home rt Problem: new rt Symptoms: are unchanged rt Condition: Stable rt Diagnosis - Otalgia, left ear rt Followup: rt - With: Private Physician - When: 2 - 3 days - Reason: Discharge Instructions: - Discharge Summary Sheet rt - Earache, Adult rt Forms: - Medication Reconciliation Form rt - Thank You Letter rt - Antibiotic Education rt - Prescription Opioid Use rt Signatures: Clarence Thomas RN RN as6 Jacqueline Stark RN RN aa9 Clifton Ventura MD MD rt
--- NOTE | 2022-09-14 06:11 | ER ---
Nurse's Notes [facility] Name: Rico Mcneill Age: 52 yrs Sex: Male : 1970 Arrival Date: 09/14/2022 Time: 05:57 Bed 5 Private MD: Diagnosis: Otalgia, left ear Presentation: 09/14 06:06 Chief complaint: Patient states: "My left ear hurts. I don't know if there is something as6 in it". Coronavirus screen: At this time, the client does not indicate any symptoms associated with coronavirus-19. Ebola Screen: No symptoms or risks identified at this time. Initial Sepsis Screen: Does the patient meet any 2 criteria? No. Patient's initial sepsis screen is negative. Does the patient have a suspected source of infection? No. Patient's initial sepsis screen is negative. Risk Assessment: Do you want to hurt yourself or someone else? Patient reports no desire to harm self or others. Onset of symptoms was September 14, 2022. 06:06 Acuity: OCTAVIO 5 as6 06:06 Method Of Arrival: Ambulatory as6 Triage Assessment: 06:07 General: Appears in no apparent distress. Behavior is calm, cooperative. Pain: as6 Complains of pain in left ear. EENT: Reports pain in left ear. Historical: - Allergies: 06:05 NKDA; as6 - PMHx: 06:05 Hypertensive disorder; ileostomy; as6 - PSHx: 06:05 Small bowel resection with ileostomy; as6 - Immunization history:: Client reports receiving the 2nd dose of the Covid vaccine. - Social history:: Smoking status: Patient reports use of chewing tobacco. - Family history:: not pertinent. Screenin:07 [facility] ED Fall Risk Assessment (Adult) Score/Fall Risk Level 0 - 2 = Low Risk. Abuse as6 screen: Denies threats or abuse. Denies injuries from another. Nutritional screening: No deficits noted. Tuberculosis screening: No symptoms or risk factors identified. Assessment: 06:17 General: Appears in no apparent distress. comfortable, Behavior is calm, cooperative, aa9 appropriate for age. Respiratory: Airway is patent Respiratory effort is even, unlabored. Vital Signs: 06:06 BP 112 / 73; Pulse 88; Resp 18 S; Temp 98.5(O); Pulse Ox 100% on R/A; Weight 68.04 kg as6 (R); Height 6 ft. 1 in. (185.42 cm) (R); Pain 9/10; 06:06 Body Mass Index 19.79 (68.04 kg, 185.42 cm) as6 ED Course: 05:57 Patient arrived in ED. [id number] 06:02 Clifton Ventura MD is Attending Physician. rt 06:05 Arm band placed on. as6 06:07 Triage completed. as6 06:07 Bed in low position. Call light in reach. as6 06:08 No provider procedures requiring assistance completed. as6 06:11 Jacqueline Stark, RN is Primary Nurse. aa9 06:18 Patient did not have IV access during this emergency room visit. aa9 Administered Medications: 06:17 Drug: Tylenol 1000 mg Route: PO; aa9 Medication: 06:07 VIS not applicable for this client. as6 Outcome: 06:11 Discharge ordered by . rt 06:18 Discharged to home ambulatory. aa9 06:18 Condition: stable 06:18 Discharge instructions given to patient, Instructed on discharge instructions, follow up and referral plans. Demonstrated understanding of instructions, follow-up care. 06:18 Patient left the ED. aa9 Signatures: Karin Zhou [email or web address] Clarence Thomas RN RN as6 Jacqueline Stark, BRITTNY RN aa9 Clifton Ventura MD MD rt
[2022-09-14 06:37] VITALS: BP 112/73; TEMP 98.5; O2SAT 100
== END 2022-09-14 06:18 | disposition home or self-care (01) ==
LOC: ER 05:50
DX: H92.02 Otalgia, left ear (principal); I10 Essential (primary) hypertension; F17.220 Nicotine dependence, chewing tobacco, uncomplicated
CPT/HCPCS: 99283

== ENCOUNTER 2022-09-17 08:19 | Emergency (ER) | payer SELFPAY ==
--- OUTSIDE RECORDS SUMMARY | 2022-09-17 08:38 | XMS REPORT | Continuity of Care Document ---
:[address] [facility] t Address [address] [place] [address] Care Team Providers Name Role Phone UNKNOWN, REFFERING Primary Care Physician Unavailable Coco Nova Attending Clinician Unavailable Mark Perea Attending Clinician Unavailable Steve Urias Attending Clinician Unavailable YESSI RAMOS Attending Clinician Unavailable NELSON GARCIA Attending Clinician Unavailable KENDRA CARDENAS Attending Clinician Unavailable LEÓN EARL Attending Clinician Unavailable Aryan Tello MD Attending Clinician [phone] Marty CAPONE, Dee Dee Nelson Attending Clinician Shiela CAPONE, Romie Attending Clinician Pao Barton MD Attending Clinician Anya CAPONE, León Shaw Attending Clinician [phone] Teddy Carbajal MD Attending Clinician Bernabe Calvert [...] Clinician Lindsey Escobar, Steve Santana Attending Clinician [phone] KARIN BASSETT Attending Clinician Unavailable Bert [...] Number Effective Date Expiration Date S kashif [facility] [id number] 2019 ADMIT 00:00:00 Problems Condition Condition Condition Status Onset Resolution Last Treating Co mments Source Name Details Category Date Date Treatment Clinician Date Lightheade Lightheade Disease Active [facility] 00 Ethel Altered Altered Disease Active [place] bowel bowel 5-29 [facility] eliminatio eliminatio 00:00: n due to n due to 00 intestinal intestinal ostomy ostomy Acute Acute Disease Active [place] kidney kidney 5-20 [facility] injury injury 00:00: 00 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 [facility] resection resection 00:00: Medi mariusz 00 Center Intestinal Intestinal Disease Active [facility] stoma stoma 7 [facility] prolapse prolapse 00:00: Medica l 00 Ethel Disorder Disorder Disease Active [facility] stoma [facility] stoma 15 [facility] 00:00: 00 Dehydratio Dehydratio Disease Active H arris n n Health Encounter Encounter Disease Active [facility] for ostomy for ostomy He [facility] care care education education AL[place] (acute [...] Allergie 1-29 [facility] 00:00: d 00 [facility] No Known DA Active [facility] Allergie 9-05 Clear s 00:00: [facility] No Known DA Active [facility] Allergie 9-05 Clear s 00:00: [facility] No Known DA Active [facility] Allergie 7-03 Clear s 00:00: [facility] No Known DA Active [facility] Allergie 5-14 Clear s 00:00: [facility] No Known DA Active [facility] [...] Alcohol intake 2022-02-18 2022-02-18 Current drinker of [employer] 00:00:00 00:00:00 alcohol (finding) History [facility] 2019-03-17 2019-03-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 [facility] Alcohol Comment 00:00:00 00:00:00 Medical C enter Tobacco use and 2019-03-17 2019-03-[address] [facility] exposure 00:00:00 00:00:00 Medical Center History [facility] Food 2017-04-14 2017-04-14 1 [facility] Worry 00:00:00 00:00:00 History [facility] Food 2017-04-14 2017-04-14 1 [facility] Scarcity 00:00:00 00:00:00 Sex [birth year] At [birth year] Magde Douglas alth 00:00:00 00:00:00 Smoking Status Start Date Stop Date Source Never smoker [facility] Medications Ordered Filled Start Stop Current [...] ferrous No Altered 325mg QD Take 1 Cmopa ris sulfate 325 6-30 08-29 bowel tablet [...] intestinal ostomy loperamide 2021- No Altered 4mg Q.78971924 Take 2 Lynne (IMODIUM) 2 02-20 bowel [id number] capsules Health mg capsule 00:00: 23:59 elimination [...] intestinal ostomy loperamide 2021- No Altered 4mg Q.88264236 Take 2 [facility] (IMODIUM) 2 02-20 bowel [id number] capsules Health mg capsule 00:00: 23:59 elimination [...] intestinal ostomy loperamide 2021- No Altered 4mg Q.[id number] Take 2 Lyn[facility] (IMODIUM) 2 02-20 bowel [id number] capsules Health mg capsule 00:00: 23:59 elimination [...] intestinal ostomy loperamide 2021- No Altered 4mg Q.95735736 Take 2 [facility]ne (IMODIUM) 2 02-20 bowel [id number] capsules Health mg capsule 00:00: 23:59 elimination [...] intestinal ostomy loperamide 2021- No Altered 4mg Q.86764037 Take 2 [facility] (IMODIUM) 2 02-20 bowel [id number] capsules Health mg capsule 00:00: 23:59 elimination [...] intestinal ostomy loperamide 2021- No Altered 4mg Q.52151732 Take 2 [facility] (IMODIUM) 2 02-20 bowel [id number] capsules Health mg capsule 00:00: 23:59 elimination [...] intestinal ostomy loperamide 2021- No Altered 4mg Q.52967029 Take 2 [facility] (IMODIUM) 2 02-20 bowel [id number] capsules Health mg capsule 00:00: 23:59 elimination [...] intestinal ostomy loperamide 2021- No Altered 4mg Q.94952807 Take 2 [facility] (IMODIUM) 2 02-20-30 bowel [id number] capsules Health mg capsule 00:00: 23:59 elimination [...] intestinal ostomy loperamide 2021- No Altered 4mg Q.50644447 Take 2 Lynne (IMODIUM) 2 02-20-30 bowel [id number] capsules Health mg capsule 00:00: 23:59 elimination [...] intestinal ostomy loperamide 2021- No Altered 4mg Q.64655623 Take 2 [facility] (IMODIUM) 2 02-20-30 bowel [id number] capsules Health mg capsule 00:00: 23:59 elimination [...] intestinal ostomy loperamide 2021- No Altered 4mg Q.42363668 Take 2 Lynne (IMODIUM) 2 02-20-30 bowel [id number] capsules Health mg capsule 00:00: 23:59 elimination [...] intestinal ostomy loperamide 2021- No Altered 4mg Q.05747851 Take 2 Lyn[facility] (IMODIUM) 2 02-20-30 bowel [id number] capsules Health mg capsule 00:00: 23:59 elimination [...] intestinal ostomy loperamide 2021- No Altered 4mg Q.50703980 Take 2 [facility] (IMODIUM) 2 - 07-30 bowel [id number] capsules Health mg capsule 00:00: 23:59 elimination [...] intestinal ostomy loperamide 2021- No Altered 4mg Q.76756063 Take 2 [facility] (IMODIUM) 2 02-20-30 bowel [id number] capsules Health mg capsule 00:00: 23:59 elimination [...] intestinal ostomy loperamide 2021- No Altered 4mg Q.31831944 Take 2 [facility] (IMODIUM) 2 02-20-30 bowel [id number] capsules Health mg capsule 00:00: 23:59 elimination [...] intestinal ostomy loperamide 2021- No Altered 4mg Q.10891125 Take 2 [facility] (IMODIUM) 2 02-20- bowel [id number] capsules Health mg capsule 00:00: 23:59 elimination [...] intestinal ostomy loperamide 2021- No Altered 4mg Q.59302731 Take 2 Lynne (IMODIUM) 2 02-20 bowel [id number] capsules Health mg capsule 00:00: 23:59 elimination [...] intestinal ostomy loperamide 2021- No Altered 4mg Q.04466184 Take 2 Lynne (IMODIUM) 2 02-20-30 bowel [id number] capsules Health mg capsule 00:00: 23:59 elimination [...] Lynne (METAMUCIL) 02-20-30 bowel t} Packet by [facility] 6 gram PwPk 00:00: 23:59 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 loperamide 2021- No Altered 4mg Q.94822385 Take 2 [facility]ne (IMODIUM) 2 02-20-30 bowel [id number] capsules Health mg capsule 00:00: 23:59 elimination [...] intestinal ostomy loperamide 2021- No Altered 4mg Q.30392697 Take 2 Lynne (IMODIUM) 2 02-2030 bowel [id number] capsules Health mg capsule 00:00: 23:59 elimination [...] Lynne (METAMUCIL) 02-1130 bowel t} Packet by [facility] 6 gram PwPk 00:00: 00:00 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 psyllium 2021- No Altered 1{packe Take 1 Lynne (METAMUCIL) 02-1130 bowel t} Packet by [facility] 6 gram PwPk 00:00: 00:00 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 psyllium 2021- No Altered 1{packe Take 1 Lynne (METAMUCIL) 02-1130 bowel t} Packet by [facility] 6 gram PwPk 00:00: 00:00 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 psyllium 2021- No Altered 1{packe Take 1 Lynne (METAMUCIL) 02-11 bowel t} Packet by [facility] 6 gram PwPk 00:00: 00:00 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 psyllium 2021- No Altered 1{packe Take 1 Lynne (METAMUCIL) 02-11 bowel t} Packet by [facility] 6 gram PwPk 00:00: 00:00 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 psyllium 2021- No Altered 1{packe Take 1 Lynne (METAMUCIL) 02-1130 bowel t} Packet by [facility] 6 gram PwPk 00:00: 00:00 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 psyllium 2021- No Altered 1{packe Take 1 Lynne (METAMUCIL) 02-1130 bowel t} Packet by [facility] 6 gram PwPk 00:00: 00:00 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 psyllium 2021- No Altered 1{packe Take 1 Lynne (METAMUCIL) 02-1130 bowel t} Packet by [facility] 6 gram PwPk 00:00: 00:00 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 psyllium 0 2021- No Altered 1{packe Take 1 Lynne (METAMUCIL) 02-1130 bowel t} [facility] Pw[facility]k 00:00: 00:00 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 ascorbic 2021- No Altered 250mg QD Take 1 Momin rris acid, 01-21 bowel tablet by [facility] vitamin C, 00:00: 23:59 elimination mouth 250 mg 00 :00 due to daily for tablet intestinal 60 days ostomy magnesium 2021- No Altered 800mg Q.5D Take 2 H arris oxide 01-21 bowel tablets by [facility] (MAG-OX) 00:00: 23:59 elimination mouth 2 400 mg 00 :00 due to times (241.3 mg intestinal daily for magnesium) ostomy 60 days tablet multivitami 2021- No Altered 1{tbl} QD Take 1 Lynne n with 01-21 bowel tablet by [facility] folic acid 00:00: 23:59 elimination mouth (THERA) 400 00 :00 due to daily for mcg tablet intestinal 60 days ostomy ascorbic 2021- No Altered 250mg QD Take 1 Momin rris acid, 01-21 bowel tablet by [facility] vitamin C, 00:00: 23:59 elimination mouth 250 mg 00 :00 due to daily for tablet intestinal 60 days ostomy magnesium 2021- No Altered 800mg Q.5D Take 2 H arris oxide 01-21 bowel tablets by [employer] [facility] (MAG-OX) 00:00: 23:59 elimination mouth 2 400 mg 00 :00 due to times (241.3 mg intestinal daily for magnesium) ostomy 60 days tablet multivitami 2021- No Altered 1{tbl} QD Take 1 Lynne n with 01-21 bowel tablet by [facility] folic acid 00:00: 23:59 elimination mouth (THERA) 400 00 :00 due to daily for mcg tablet intestinal 60 days ostomy ascorbic 2021- No Altered 250mg QD Take 1 Momin rris acid, 01-21 bowel tablet by [facility] vitamin C, 00:00: 23:59 elimination mouth 250 mg 00 :00 due to daily for tablet intestinal 60 days ostomy magnesium 2021- No Altered 800mg Q.5D Take 2 H arris oxide 01-21-30 bowel tablets by [employer] [facility] (MAG-OX) 00:00: 23:59 elimination mouth 2 400 [...] H arris oxide 01-21- bowel tablets by [employer] [facility] (MAG-OX) 00:00: 23:59 elimination mouth 2 400 [...] rris acid, 5-31 07-30 bowel tablet by [facility] vitamin C, 00:00: 23:59 elimination mouth 250 mg 00 :00 due to daily for tablet intestinal 60 days ostomy magnesium 2021- No Altered 800mg Q.5D Take 2 H arris oxide 01-21 bowel tablets by [facility] (MAG-OX) 00:00: 23:59 elimination mouth 2 400 mg 00 :00 due to times (241.3 mg intestinal daily for magnesium) ostomy 60 days tablet multivitami 2021- No Altered 1{tbl} QD Take 1 Lynne n with 01-21 bowel tablet by [facility] folic acid 00:00: 23:59 elimination mouth (THERA) 400 00 :00 due to daily for mcg tablet intestinal 60 days ostomy ascorbic 2021- No Altered 250mg QD Take 1 Momin rris acid, 01-21 bowel tablet by [facility] vitamin C, 00:00: 23:59 elimination mouth 250 mg 00 :00 due to daily for tablet intestinal 60 days ostomy magnesium 2021- No Altered 800mg Q.5D Take 2 H arris oxide 01-21 bowel tablets by [facility] (MAG-OX) 00:00: 23:59 elimination mouth 2 400 mg 00 :00 due to times (241.3 mg intestinal daily for magnesium) ostomy 60 days tablet multivitami 2021- No Altered 1{tbl} QD Take 1 Lynne n with 01-21 bowel tablet by [facility] folic acid 00:00: 23:59 elimination mouth (THERA) 400 00 :00 due to daily for mcg tablet intestinal 60 days ostomy ascorbic 2021- No Altered 250mg QD Take 1 Momin rris acid, 01-21 bowel tablet by [facility] vitamin C, 00:00: 23:59 elimination mouth 250 mg 00 :00 due to daily for tablet intestinal 60 days ostomy magnesium 2021- No Altered 800mg Q.5D Take 2 H arris oxide 01-21 bowel tablets by [facility] (MAG-OX) 00:00: 23:59 elimination mouth 2 400 mg 00 :00 due to times (241.3 mg intestinal daily for magnesium) ostomy 60 days tablet multivitami 2021- No Altered 1{tbl} QD Take 1 Lynne n with 01-21-30 bowel tablet by [facility] folic acid 00:00: 23:59 elimination mouth (THERA) 400 00 :00 due to daily for mcg tablet intestinal 60 days ostomy ascorbic 2021- No Altered 250mg QD Take 1 Momin rris acid, 01-21-30 bowel tablet by [facility] vitamin C, 00:00: 23:59 elimination mouth 250 mg 00 :00 due to daily for tablet intestinal 60 days ostomy magnesium 2021- No Altered 800mg Q.5D Take 2 H arris oxide 01-21-30 bowel tablets by [facility] (MAG-OX) 00:00: 23:59 elimination mouth 2 400 mg 00 :00 due to times (241.3 mg intestinal daily for magnesium) ostomy 60 days tablet multivitami 2021- No Altered 1{tbl} QD Take 1 Lynne n with 01-21-30 bowel tablet by [facility] folic acid 00:00: 23:59 elimination mouth (THERA) 400 00 :00 due to daily for mcg tablet intestinal 60 days ostomy ascorbic 2021- No Altered 250mg QD Take 1 Momin rris acid, 01-21-30 bowel tablet by [facility] vitamin C, 00:00: 23:59 elimination mouth 250 mg 00 :00 due to daily for tablet intestinal 60 days ostomy magnesium 2021- No Altered 800mg Q.5D Take 2 H arris oxide 01-21-30 bowel tablets by [employer] [facility] (MAG-OX) 00:00: 23:59 elimination mouth 2 400 [...] Momin rris acid, 01-21-30 bowel tablet by [employer] [facility] vitamin C, 00:00: 23:59 elimination mouth 250 mg 00 :00 due to daily for tablet intestinal 60 days ostomy magnesium 2021- No Altered 800mg Q.5D Take 2 H arris oxide 5- 07-30 bowel tablets by [facility] (MAG-OX) 00:00: 23:59 elimination mouth 2 400 mg 00 :00 due to times (241.3 mg intestinal daily for magnesium) ostomy 60 days tablet multivitami 2021- No Altered 1{tbl} QD Take 1 Lynne n with 5-23 03-30 bowel tablet by [facility] folic acid 00:00: 23:59 elimination mouth (THERA) 400 00 :00 due to daily for mcg tablet intestinal 60 days ostomy ascorbic 2021- No Altered 250mg QD Take 1 Momin rris acid, 01-21-30 bowel tablet by [facility] vitamin C, 00:00: 23:59 elimination mouth 250 mg 00 :00 due to daily for tablet intestinal 60 days ostomy magnesium 2021- No Altered 800mg Q.5D Take 2 H arris oxide 01-21-30 bowel tablets by [employer] [facility] (MAG-OX) 00:00: 23:59 elimination mouth 2 400 mg 00 :00 due to times (241.3 mg intestinal daily for magnesium) ostomy 60 days tablet multivitami 2021- No Altered 1{tbl} QD Take 1 Lynne n with 01-2130 bowel tablet by [facility] folic acid 00:00: 23:59 elimination mouth (THERA) 400 00 :00 due to daily for mcg tablet intestinal 60 days ostomy ascorbic 2021- No Altered 250mg QD Take 1 Momin rris acid, 01-21-30 bowel tablet by [facility] vitamin C, 00:00: 23:59 elimination mouth 250 mg 00 :00 due to daily for tablet intestinal 60 days ostomy magnesium 2021- No Altered 800mg Q.5D Take 2 H arris oxide -23 03-30 bowel tablets by [employer] [facility] (MAG-OX) 00:00: 23:59 elimination mouth 2 400 [...] rris acid, -23 03-30 bowel tablet by [facility] vitamin C, 00:00: 23:59 elimination mouth 250 mg 00 :00 due to daily for tablet intestinal 60 days ostomy magnesium 2021- No Altered 800mg Q.5D Take 2 H arris oxide 5- 07-30 bowel tablets by [facility] (MAG-OX) 00:00: 23:59 elimination mouth 2 400 mg 00 :00 due to times (241.3 mg intestinal daily for magnesium) ostomy 60 days tablet multivitami 2021- No Altered 1{tbl} QD Take 1 Lynne n with 01-21-30 bowel tablet by [facility] folic acid 00:00: 23:59 elimination mouth (THERA) 400 00 :00 due to daily for mcg tablet intestinal 60 days ostomy ascorbic 2021- No Altered 250mg QD Take 1 Momin rris acid, 01-21-30 bowel tablet by [facility] vitamin C, 00:00: 23:59 elimination [...] n with -23 03-30 bowel tablet by [facility] folic acid 00:00: 23:59 elimination mouth (THERA) 400 00 :00 due to daily for mcg tablet intestinal 60 days ostomy ascorbic 2021- No Altered 250mg QD Take 1 Momin rris acid, 01-21-30 bowel tablet by [facility] vitamin C, 00:00: 23:59 elimination mouth 250 mg 00 :00 due to daily for tablet intestinal 60 days ostomy magnesium 2021- No Altered 800mg Q.5D Take 2 H arris oxide 5- 07-30 bowel tablets by [employer] [facility] (MAG-OX) 00:00: 23:59 elimination mouth 2 400 [...] arris oxide 5-23 03-30 bowel tablets by [facility] (MAG-OX) 00:00: 23:59 elimination mouth [...] arris oxide 5-23 03-30 bowel tablets by [employer] [facility] (MAG-OX) 00:00: 23:59 elimination mouth 2 400 [...] Lynne n with 01-2130 bowel tablet by [facility] folic acid 00:00: 23:59 elimination mouth (THERA) 400 00 :00 due to daily for mcg tablet intestinal 60 days ostomy ascorbic 2021- No Altered 250mg QD Take 1 Momin rris acid, 01-21 bowel tablet by [facility] vitamin C, 00:00: 23:59 elimination mouth 250 mg 00 :00 due to daily for tablet intestinal 60 days ostomy magnesium 2021- No Altered 800mg Q.5D Take 2 H arris oxide 01-2130 bowel tablets by [facility] (MAG-OX) 00:00: 23:59 elimination mouth 2 400 mg 00 :00 due to times (241.3 mg intestinal daily for magnesium) ostomy 60 days tablet multivitami 2021- No Altered 1{tbl} QD Take 1 Lynne n with 01-21 bowel tablet by [facility] folic acid 00:00: 23:59 elimination mouth [...] days ostomy loperamide 2021- No Altered 4mg Q.12351807 Take 2 Lynne (IMODIUM) 2 01-21-30 bowel [id number] capsules Health mg capsule 00:00: 00:00 elimination [...] days ostomy loperamide 2021- No Altered 4mg Q.64591479 Take 2 Lynne (IMODIUM) 2 01-21-30 bowel [id number] capsules Health mg capsule 00:00: 00:00 elimination [...] days ostomy loperamide 2021- No Altered 4mg Q.14462532 Take 2 Lynne (IMODIUM) 2 01-21-30 bowel [id number] capsules Health mg capsule 00:00: 00:00 elimination [...] days ostomy loperamide 2021- No Altered 4mg Q.06365234 Take 2 Lynne (IMODIUM) 2 --30 bowel [id number] capsules Health mg capsule 00:00: 00:00 elimination [...] days ostomy loperamide 2021- No Altered 4mg Q.19393231 Take 2 Lynne (IMODIUM) 2 01-21-30 bowel [id number] capsules Health mg capsule 00:00: 00:00 elimination [...] days ostomy loperamide 2021- No Altered 4mg Q.62020422 Take 2 Lynne (IMODIUM) 2 01-21-30 bowel [id number] capsules Health mg capsule 00:00: 00:00 elimination [...] days ostomy loperamide 2021- No Altered 4mg Q.96305793 Take 2 Lynne (IMODIUM) 2 01-21-30 bowel [id number] capsules Health mg capsule 00:00: 00:00 elimination [...] days ostomy loperamide 2021- No Altered 4mg Q.80860595 Take 2 Lynne (IMODIUM) 2 01-21-30 bowel [id number] capsules Health mg capsule 00:00: 00:00 elimination [...] days ostomy loperamide 2021- No Altered 4mg Q.03055836 Take 2 Lynne (IMODIUM) 2 --30 bowel [id number] capsules Health mg capsule 00:00: 00:00 elimination [...] days ostomy loperamide 2021- No Altered 4mg Q.45503897 Take 2 Lynne (IMODIUM) 2 01-21-30 bowel [id number] capsules Health mg capsule 00:00: 00:00 elimination [...] days ostomy loperamide 2021- No Altered 4mg Q.93230063 Take 2 Lynne (IMODIUM) 2 01-21-30 bowel [id number] capsules Health mg capsule 00:00: 00:00 elimination [...] days ostomy loperamide 2021- No Altered 4mg Q.30881088 Take 2 Lynne (IMODIUM) 2 01-21- bowel [id number] capsules Health mg capsule 00:00: 00:00 elimination [...] days ostomy loperamide 2021- No Altered 4mg Q.36811993 Take 2 Lynne (IMODIUM) 2 01-21- bowel [id number] capsules Health mg capsule 00:00: 00:00 elimination [...] days ostomy loperamide 2021- No Altered 4mg Q.36388502 Take 2 Lynne (IMODIUM) 2 01-21-30 bowel [id number] capsules Health mg capsule 00:00: 00:00 elimination [...] days ostomy loperamide 2021- No Altered 4mg Q.18018489 Take 2 Lynne (IMODIUM) 2 01-21-30 bowel [id number] capsules Health mg capsule 00:00: 00:00 elimination [...] days ostomy loperamide 2021- No Altered 4mg Q.38270448 Take 2 Lynne (IMODIUM) 2 01-21- bowel [id number] capsules Health mg capsule 00:00: 00:00 elimination [...] days ostomy loperamide 2021- No Altered 4mg Q.38442950 Take 2 Lynne (IMODIUM) 2 01-21-30 bowel [id number] capsules Health mg capsule 00:00: 00:00 elimination [...] days ostomy loperamide 2021- No Altered 4mg Q.55874377 Take 2 Lynne (IMODIUM) 2 01-21-30 bowel [id number] capsules Health mg capsule 00:00: 00:00 elimination [...] days ostomy loperamide 2021- No Altered 4mg Q.91332744 Take 2 Lynne (IMODIUM) 2 01-21-30 bowel [id number] capsules Health mg capsule 00:00: 00:00 elimination [...] days ostomy loperamide 2021- No Altered 4mg Q.18144630 Take 2 Lynne (IMODIUM) 2 01-21 bowel [id number] capsules Health mg capsule 00:00: 00:00 elimination 3D by mouth 3 00 :00 due to times intestinal daily ostomy (before meals) for 30 days psyllium 2021- No Altered 1{packe Q.89397026 Take 1 Lynne (METAMUCIL) 01-21 bowel t} [id number] Packet by [facility] 6 gram PwPk 00:00: 00:00 elimination 3D mouth 3 00 :00 due to times intestinal daily ostomy (before meals) for 90 days psyllium 2021- No Altered 1{packe Q.24902155 Take 1 Lynne (METAMUCIL) 01-21 bowel t} [id number] Packet by [facility] 6 gram PwPk 00:00: 00:00 elimination 3D mouth 3 00 :00 due to times intestinal daily ostomy (before meals) for 90 days psyllium 2021- No Altered 1{packe Q.21923065 Take 1 Lynne (METAMUCIL) 01-21 bowel t} [id number] Packet by [facility] 6 gram PwPk 00:00: 00:00 elimination 3D mouth 3 00 :00 due to times intestinal daily ostomy (before meals) for 90 days psyllium 2021- No Altered 1{packe Q.24040168 Take 1 Lynne (METAMUCIL) 01-21 bowel t} [id number] Packet by [facility] 6 gram PwPk 00:00: 00:00 elimination 3D mouth 3 00 :00 due to times intestinal daily ostomy (before meals) for 90 days psyllium 2021- No Altered 1{packe Q.65040412 Take 1 Lynne (METAMUCIL) 01-21 bowel t} [id number] Packet by [facility] 6 gram PwPk 00:00: 00:00 elimination 3D mouth 3 00 :00 due to times intestinal daily ostomy (before meals) for 90 days psyllium 2021- No Altered 1{packe Q.61378230 Take 1 Lynne (METAMUCIL) 01-21 bowel t} [id number] Packet by [facility] 6 gram PwPk 00:00: 00:00 elimination 3D mouth 3 00 :00 due to times intestinal daily ostomy (before meals) for 90 days psyllium 2021- No Altered 1{packe Q.64857072 Take 1 Lynne (METAMUCIL) 01-21 bowel t} [id number] Packet by [facility] 6 gram PwPk 00:00: 00:00 elimination 3D mouth 3 00 :00 due to times intestinal daily ostomy (before meals) for 90 days psyllium 2021- No Altered 1{packe Q.50443980 Take 1 Lynne (METAMUCIL) 01-21 bowel t} [id number] Packet by [facility] 6 gram PwPk 00:00: 00:00 elimination 3D mouth 3 00 :00 due to times intestinal daily ostomy (before meals) for 90 days psyllium 2021- No Altered 1{packe Q.99749915 Take 1 Lynne (METAMUCIL) 01-21 bowel t} [id number] Packet by [facility] 6 gram PwPk 00:00: 00:00 elimination 3D mouth 3 00 :00 due to times intestinal daily ostomy (before meals) for 90 days psyllium 2021- No Altered 1{packe Q.74127718 Take 1 Lynne (METAMUCIL) 01-21 bowel t} [id number] Packet by [facility] 6 gram PwPk 00:00: 00:00 elimination 3D mouth 3 00 :00 due to times intestinal daily ostomy (before meals) for 90 days psyllium 2021- No Altered 1{packe Q.15241264 Take 1 Lynne (METAMUCIL) 01-21 bowel t} [id number] Packet by [facility] 6 gram PwPk 00:00: 00:00 elimination 3D mouth 3 00 :00 due to times intestinal daily ostomy (before meals) for 90 days psyllium 2021- No Altered 1{packe Q.31338498 Take 1 Lynne (METAMUCIL) 01-21 bowel t} [id number] Packet by [facility] 6 gram PwPk 00:00: 00:00 elimination 3D mouth 3 00 :00 due to times intestinal daily ostomy (before meals) for 90 days psyllium 2021- No Altered 1{packe Q.13442243 Take 1 Lynne (METAMUCIL) 01-21 bowel t} [id number] Packet by [facility] 6 gram PwPk 00:00: 00:00 elimination 3D mouth 3 00 :00 due to times intestinal daily ostomy (before meals) for 90 days psyllium 2021- No Altered 1{packe Q.[id number] Take 1 Lynne (METAMUCIL) 01-21 bowel t} [id number] Packet by [facility] 6 gram PwPk 00:00: 00:00 elimination 3D mouth 3 00 :00 due to times intestinal daily ostomy (before meals) for 90 days psyllium 2021- No Altered 1{packe Q.[id number] Take 1 Lynne (METAMUCIL) 01-21 bowel t} [id number] Packet by [facility] 6 gram PwPk 00:00: 00:00 elimination 3D mouth 3 00 :00 due to times intestinal daily ostomy (before meals) for 90 days psyllium 2021- No Altered 1{packe Q.[id number] Take 1 Lynne (METAMUCIL) 01-21 bowel t} [id number] Packet by [facility] 6 gram PwPk 00:00: 00:00 elimination 3D mouth 3 00 :00 due to times intestinal daily ostomy (before meals) for 90 days psyllium 2021- No Altered 1{packe Q.[id number] Take 1 Lynne (METAMUCIL) 01-21 bowel t} [id number] Packet by [facility] 6 gram PwPk 00:00: 00:00 elimination 3D mouth 3 00 :00 due to times intestinal daily ostomy (before meals) for 90 days psyllium 2021- No Altered 1{packe Q.[id number] Take 1 Lynne (METAMUCIL) 01-21 bowel t} [id number] Packet [facility] 6 gram PwPk 00:00: 00:00 elimination 3D mouth 3 00 :00 due to times intestinal daily ostomy (before meals) for 90 days psyllium 2021- No Altered 1{packe Q.[id number] Take 1 Lynne (METAMUCIL) 01-21 bowel t} [id number] Packet by [employer] 6 gram PwPk 00:00: 00:00 elimination 3D mouth 3 00 :00 due to times intestinal daily ostomy (before meals) for 90 days psyllium 2021- No Altered 1{packe Q.[id number] Take 1 Lynne (METAMUCIL) 01-21 bowel t} [id number] Packet by [employer] 6 gram PwPk 00:00: 00:00 elimination 3D mouth 3 00 :00 due to times intestinal daily ostomy (before meals) for 90 days tamsulosin 2021- No Benign .4mg QD Take 1 Momin rris (FLOMAX) 01-12 prostatic capsule by [employer] 0.4 mg 00:00: 00:00 hyperplasia mouth capsule 00 :00 , daily. unspecified Start on whether 01/12/2022. lower urinary tract symptoms present tamsulosin 2021- No Benign .4mg QD Take 1 Momin rris (FLOMAX) 01-12 prostatic capsule by [employer] 0.4 mg 00:00: 00:00 hyperplasia mouth capsule 00 :00 , daily. unspecified Start on whether 01/12/2022. lower urinary tract symptoms present tamsulosin 2021- No Benign .4mg QD Take 1 Momin rris (FLOMAX) 01-12 prostatic capsule by [employer] 0.4 mg 00:00: 00:00 hyperplasia mouth capsule 00 :00 , daily. unspecified Start on whether 01/12/2022. lower urinary tract symptoms present tamsulosin 2021- No Benign .4mg QD Take 1 Momin rris (FLOMAX) 01-12-31 prostatic capsule by [employer] 0.4 mg 00:00: 00:00 hyperplasia mouth capsule [...] Momin rris (FLOMAX) 01-12 prostatic capsule by [facility] 0.4 mg 00:00: 00:00 hyperplasia mouth capsule 00 :00 , daily. unspecified Start on whether 01/12/2022. lower urinary tract symptoms present tamsulosin 2021-2021- No Benign .4mg QD Take 1 Momin rris (FLOMAX) 01-12 prostatic capsule by [facility] 0.4 mg 00:00: 00:00 hyperplasia mouth capsule 00 :00 , daily. unspecified Start on whether 01/12/2022. lower urinary tract symptoms present tamsulosin 2021- No Benign .4mg QD Take 1 Momin rris (FLOMAX) 01-12 prostatic capsule by [facility] 0.4 mg 00:00: 00:00 hyperplasia mouth capsule 00 :00 , daily. unspecified Start on whether 01/12/2022. lower urinary tract symptoms present tamsulosin 2021- No Benign .4mg QD Take 1 Momin rris (FLOMAX) 01-12 prostatic capsule by [facility] 0.4 mg 00:00: 00:00 hyperplasia mouth capsule 00 :00 , daily. unspecified Start on whether 01/12/2022. lower urinary tract symptoms present tamsulosin 2021-2021- No Benign .4mg QD Take 1 Momin rris (FLOMAX) 01-12 prostatic capsule by [facility] 0.4 mg 00:00: 00:00 hyperplasia mouth [...] Momin rris (FLOMAX) 01-12- prostatic capsule by [facility] 0.4 mg 00:00: 00:00 hyperplasia mouth capsule 00 :00 , daily. unspecified Start on whether 01/12/2022. lower urinary tract symptoms present tamsulosin 2021-2021- No Benign .4mg QD Take 1 Momin rris (FLOMAX) 01-12 prostatic capsule by [facility] 0.4 mg 00:00: 00:00 hyperplasia mouth capsule 00 :00 , daily. unspecified Start on whether 01/12/2022. lower urinary tract symptoms present tamsulosin 2021-2021- No Benign .4mg QD Take 1 Momin rris (FLOMAX) 01-12 prostatic capsule by [facility] 0.4 mg 00:00: 00:00 hyperplasia mouth capsule 00 :00 , daily. unspecified Start on whether 01/12/2022. lower urinary tract symptoms present tamsulosin 2021-2021- No Benign .4mg QD Take 1 Momin rris (FLOMAX) 01-12 prostatic capsule by [facility] 0.4 mg 00:00: 00:00 hyperplasia mouth capsule 00 :00 , daily. unspecified Start on whether 01/12/2022. lower urinary tract symptoms present tamsulosin 2021-2021- No Benign .4mg QD Take 1 Momin rris (FLOMAX) 01-12 prostatic capsule by [facility] 0.4 mg 00:00: 00:00 hyperplasia mouth capsule 00 :00 , daily. unspecified Start on whether 01/12/2022. lower urinary tract symptoms present tamsulosin 2021-2021- No Benign .4mg QD Take 1 Momin rris (FLOMAX) 01-12-31 prostatic capsule by [facility] 0.4 mg 00:00: 00:00 hyperplasia mouth [...] n (DAILY 04-14 abuse, in tablet by [employer] VITES) 00:00: 00:00 remission mouth tablet 00 :00 daily. thiamine, 2021- No Alcohol 100mg QD Take 1 H arris B-1, 100 mg 8-22 05-21 abuse, in tablet by [facility] tablet 00:00: 00:00 remission mouth 00 :00 daily. multivitami 2021- No Alcohol 1{tbl} QD Take 1 Lynne n (DAILY 8- 05-21 abuse, in tablet by [employer] VITES) 00:00: 00:00 remission mouth tablet 00 :00 daily. thiamine, 2021- No Alcohol 100mg QD Take 1 H arris B-1, 100 mg 8- 05-21 abuse, in tablet by [facility] tablet 00:00: 00:00 remission mouth 00 :00 daily. multivitami 2021- No Alcohol 1{tbl} QD Take 1 Lynne n (DAILY 8- 05-21 abuse, in tablet by [employer]) 00:00: 00:00 remission mouth tablet 00 :00 daily. 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 multivitami 2021- No Alcohol 1{tbl} QD Take 1 Lynne n (DAILY 8- 05-21 abuse, in tablet by [employer] [email or web address]) 00:00: 00:00 remission mouth tablet 00 :00 daily. 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 multivitami 2021- No Alcohol 1{tbl} QD Take 1 Lynne n (DAILY 8-22 05-21 abuse, in tablet by [employer] VITES) 00:00: 00:00 remission mouth tablet 00 [...] (DAILY 8- 05-21 abuse, in tablet by [email or web address]) 00:00: 00:00 remission mouth tablet 00 :00 daily. 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 multivitami 2021- No Alcohol 1{tbl} QD Take 1 Lynne n (DAILY 8- 05-21 abuse, in tablet by [email or web address]) 00:00: 00:00 remission mouth tablet 00 :00 daily. thiamine, 2021- No Alcohol 100mg QD Take 1 H arris B-1, 100 mg 8- 05-21 abuse, in tablet by Health tablet 00:00: 00:00 remission mouth 00 :00 daily. multivitami 2021- No Alcohol 1{tbl} QD Take 1 Lynne n (DAILY 8-22 05-21 abuse, in tablet by [employer] VITES) 00:00: 00:00 remission mouth tablet 00 [...] n (DAILY 04-14-21 abuse, in tablet by [email or web address]) 00:00: 00:00 remission mouth tablet 00 :00 daily. thiamine, 2021- No Alcohol 100mg QD Take 1 H arris B-1, 100 mg 04-14- abuse, in tablet by Health tablet 00:00: 00:00 remission mouth 00 :00 daily. multivitami 2021- No Alcohol 1{tbl} QD Take 1 Lynne n (DAILY 04-14- abuse, in tablet by [email or web address]) 00:00: 00:00 remission mouth tablet 00 :00 daily. thiamine, 2021- No Alcohol 100mg QD Take 1 H arris B-1, 100 mg 04-14- abuse, in tablet by Health tablet 00:00: 00:00 remission mouth 00 :00 daily. multivitami 2021- No Alcohol 1{tbl} QD Take 1 Lynne n (DAILY 04-14-21 abuse, in tablet by [email or web address]) 00:00: 00:00 remission mouth tablet 00 :00 daily. thiamine, 2021- No Alcohol 100mg QD Take 1 H arris B-1, 100 mg 04-14 05-21 abuse, in tablet by Health tablet 00:00: 00:00 remission mouth 00 :00 daily. multivitami 2021- No Alcohol 1{tbl} QD Take 1 Lynne n (DAILY 8 05-21 abuse, in tablet by [email or web address]) 00:00: 00:00 remission mouth tablet 00 :00 daily. thiamine, 2021- No Alcohol 100mg QD Take 1 H arris B-1, 100 mg 8-21 abuse, in tablet by [facility] tablet 00:00: [...] (DAILY 04-14 05-21 abuse, in tablet by [employer]) 00:00: 00:00 remission mouth tablet 00 :00 daily. thiamine, 2021- No Alcohol 100mg QD Take 1 H arris B-1, 100 mg 04-14-21 abuse, in tablet by [facility] tablet 00:00: 00:00 remission mouth 00 :00 daily. multivitami 2021- No Alcohol 1{tbl} QD Take 1 Lynne n (DAILY 04-14-21 abuse, in tablet by [email or web address]) 00:00: 00:00 remission mouth tablet 00 :00 [...] (DAILY 8 05-21 abuse, in tablet by [email or web address]) 00:00: 00:00 remission mouth tablet 00 :00 [...] pressure Heart rate 2022-03-13 15:33:00 109 /min [facility] Body temperature 2022-03-13 15:33:00 36.67 [facility] Respiratory rate 2022-03-13 15:33:00 20 /min [facility] Body height 2022-03-13 15:33:[address] [facility] Body weight 2022-03-13 15:33:00 66.679 kg [facility] BMI 2022-03-13 15:33:00 19.39 kg/m2 [facility] Oxygen saturation in 2022-03-13 15:33:00 100 /min [facility] Arterial blood by Pulse oximetry Systolic blood 2022-03-09 11:00:00 107 mm[Hg] [facility] Diastolic blood 2022-03-09 11:00:00 66 mm[Hg] [facility] Heart rate 2022-03-09 11:00:00 58 /min [facility] Body temperature 2022-03-09 11:00:00 36.22 [facility] Respiratory rate 2022-03-09 11:00:00 16 /min [facility] Oxygen saturation in 2022-03-09 11:00:00 100 /min [facility] Arterial blood by Medical Ce nter Pulse oximetry Body height 2022-03-06 12:05:00 185.4 cm [facility] Body weight 2022-03-06 12:05:00 65.772 kg [facility] BMI 2022-03-06 12:05:00 19.13 kg/m2 [facility] Procedures Procedure Date / Time Performing Clinician Source Performed BASIC METABOLIC PANEL 2022-03-07 05:51:00 Romie Kuo [facility] HEPATIC FUNCTION PANEL 2022-03-07 05:51:00 Romie Kuo [facility] CBC W/PLT COUNT & AUTO 2022-03-07 05:51:00 Romie Kuo [facility] CBC W/PLT COUNT & AUTO 2022-03-07 05:51:00 Romie Kuo [facility] US RENAL COMPLETE 2022-03-06 18:23:00 Romie Kuo [facility] SARS-COV2/RT-PCR ([facility] & 2022-03-06 17:36:00 Paresh KuoAcacia [facility] REF LABS) [facility] TSH/FREE T4 IF INDICATED 2022-03-06 14:18:[address] [facility] T4, FREE 2022-03-06 14:18:[address] [facility] ED ECG INTERPRETATION 2022-03-06 13:48:[address] [facility] XR CHEST 1 VIEW PORTABLE 2022-03-06 13:42:00 Aryan Tello [facility] / BEDSIDE [facility] B-TYPE NATRIURETIC FACTOR 2022-03-06 13:23:00 Aryan Tello [facility] (BNP) [facility] CBC W/PLT COUNT & AUTO 2022-03-06 13:23:00 Aryan Tello [facility] DIFFERENTIAL [facility] COMPREHENSIVE METABOLIC 2022-03-06 13:23:00 Aryan Tello [facility] PANEL [facility] HIGH SENSITIVITY TROPONIN 2022-03-06 13:23:00 Aryan Tello [facility] MAGNESIUM 2022-03-06 13:23:[address] [facility] PHOSPHORUS 2022-03-06 13:23[facility], VENOUS 2022-03-06 13:23:[address] [facility] CREATINE KINASE (CK) 2022-03-06 13:23:[address] [facility] CBC W/PLT COUNT & AUTO 2022-03-06 13:23:00 Aryan [facility]ello [facility] DIFFERENTIAL [facility] ECG 12-LEAD 2022-03-06 12:12:56 Unknown, [facility] ECG 12-LEAD 2022-03-06 12:12:56 Unknown, [facility] ECG 12-LEAD 2022-03-06 12:12:56 Unknown, [facility] EKG-SCANNED 2022-03-06 00:00:00 Provider, Jacqui JOHNSON [facility] CBC (WITHOUT 2022-02-20 05:10:00 Rufino Lazaro DIFFERENTIAL) BASIC METABOLIC PANEL 2022-02-20 05:10:00 Rufino Lazaro Health MAGNESIUM 2022-02-20 05:10:00 Rufino Lazaro h PHOSPHORUS 2022-02-20 05:10:00 Rufino Lazaro h INFUSION PUMP 2022-02-19 19:03:50 Rufino Lazaro h COMPREHENSIVE METABOLIC 2022-02-19 06:35:00 Kobe Blake arris [facility] PANEL CBC/DIFF 2022-02-19 06:35:00 Kobe Blake alth PHOSPHORUS 2022-02-19 06:35:00 Kobe Blake alth CBC 2022-02-19 06:35:00 Kobe Blake alth URINALYSIS W/REFLEX TO 2022-02-19 00:34:00 Kobe Blake [facility] URINE CULTURE URINALYSIS 2022-02-19 00:34:00 Chadd Palacios URINE CULTURE COLLECTION 2022-02-19 00:34:00 Chadd Palacios [facility] KIT SARS-COV-2, FLU A/B, RSV 2022-02-18 19:00:00 Chadd Palacios [facility] CORONAVIRUS, COVID-19, 2022-02-18 19:00:00 Chadd Palacios [facility] OLENA XRAY CHEST 1 VIEW 2022-02-18 15:23:00 Roz Scales philipp lt CONSULT CLINICAL CASE 2022-02-18 14:50:50 Roz Scales [facility] MANAGEMENT (RN/SW) CBC/DIFF 2022-02-18 14:16:00 Susana Cooley h BASIC METABOLIC PANEL 2022-02-18 14:16:00 Susana Cooley Health MAGNESIUM 2022-02-18 14:16:00 Susana Cooley h PHOSPHORUS 2022-02-18 14:16:00 AlbabSusana [facility] CREATINE KINASE (CK) 2022-02-18 14:16:00 AlbabSusana [facility] CBC 2022-02-18 14:16:00 AlbabSusana [facility] BASIC METABOLIC PANEL 2022-02-11 03:34:00 Meghan Islas [facility] MAGNESIUM 2022-02-11 03:34:00 [place], Teresa [facility] PHOSPHORUS 2022-02-11 03:34:00 JamilahhapinTeresa [facility] CBC (WITHOUT 2022-02-11 03:34:00 [place] [facility] DIFFERENTIAL) CBC/DIFF 2022-02-10 03:39:00 Meghan Islas [facility] h BASIC METABOLIC PANEL 2022-02-10 03:39:00 Meghan Islas [facility] CBC 2022-02-10 03:39:00 [facility] 2022-02-10 03:39:00 [facility] HORMONE (TSH) FREE T4 2022-02-10 03:39:00 [place]inTeresa [facility] th CBC/DIFF 2022-02-09 04:38:00 [facility] BASIC METABOLIC PANEL 2022-02-09 04:38:00 Meghan Islas [facility] CBC 2022-02-09 04:38:00 [facility] CORTISOL, TOTAL 2022-02-08 11:37:00 Mari Meier ealth GLUCOSE POC 2022-02-08 08:07:00 [facility] CBC (WITHOUT 2022-02-08 04:00:00 Mari Meier H ealth DIFFERENTIAL) COMPREHENSIVE METABOLIC 2022-02-08 04:00:00 Mari Meier Health PANEL PHOSPHORUS 2022-02-08 04:00:00 Mari Meier H ealth MAGNESIUM 2022-02-08 04:00:00 Mari Meier H ealth PT/INR 2022-02-08 04:00:00 Mari Meier H ealth URINALYSIS W/REFLEX TO 2022-02-07 18:06:00 Areli Arciniega [facility] URINE CULTURE URINALYSIS 2022-02-07 18:06:00 Areli Arciniega alth URINE CULTURE COLLECTION 2022-02-07 18:06:00 Areli Arciniega [facility] KIT ELECTROLYTES, URINE 2022-02-07 18:06:00 Jyoti Carrillo [facility] OSMOLALITY, URINE 2022-02-07 18:06:00 Jyoti Carrillo ealt SARS-COV-2, FLU A/B, RSV 2022-02-07 18:05:00 Jyoti Carrillo [facility] CORONAVIRUS, COVID-19, 2022-02-07 18:05:00 Jyoti Carrillo [facility] OLENA NUTRITION CONSULT 2022-02-07 17:43:36 Mari Meier [facility] ASSESSMENT BASIC METABOLIC PANEL 2022-02-07 17:18:00 Jyoti Carrillo [facility] LACTIC ACID 2022-02-07 14:04:00 GaleAreli shields alth CBC/DIFF 2022-02-07 14:03:00 Areli Arciniega alth BASIC METABOLIC PANEL 2022-02-07 14:03:00 GaleAllyn shieldsediger Guadarrama [facility] LIVER PROFILE 2022-02-07 14:03:00 Areli Arciniega alth LIPASE 2022-02-07 14:03:00 Areli Arciniega alth MAGNESIUM 2022-02-07 14:03:00 Areli Arciniega alth PHOSPHORUS 2022-02-07 14:03:00 Areli Arciniega [facility] alth TROPONIN I 2022-02-07 14:03:00 Areli Arciniega alth CBC 2022-02-07 14:03:00 Areli Arciniega alth 12 LEAD EKG 2022-01-21 15:46:10 Ori Goldberg h CBC/DIFF 2022-01-21 04:11:00 Steve Lucas [facility] MAGNESIUM 2022-01-21 04:11:00 [facility] PHOSPHORUS 2022-01-21 04:11:00 LindseyNoeh Esther [facility] BASIC METABOLIC PANEL 2022-01-21 04:11:00 Ori Goldberg [facility] CBC 2022-01-21 04:11:00 LindseyNoeh Esther [facility] CBC/DIFF 2022-01-20 04:37:00 LindseySteve [facility] MAGNESIUM 2022-01-20 04:37:00 [facility] PHOSPHORUS 2022-01-20 04:37:00 [facility] Esther [facility] BASIC METABOLIC PANEL 2022-01-20 04:37:00 [facility] CBC 2022-01-20 04:37:00 [facility] MAGNESIUM 2022-01-19 18:09:00 [facility] PHOSPHORUS 2022-01-19 18:09:00 [facility] BASIC METABOLIC PANEL 2022-01-19 18:09:00 [facility] s [facility] CORTISOL, TOTAL 2022-01-19 18:09:00 Karin Bassett [facility] URINALYSIS W/REFLEX TO 2022-01-19 17:22:00 [facility] P [facility] Health URINE CULTURE URINALYSIS 2022-01-19 17:22:00 LindseySteve child [facility] URINE CULTURE COLLECTION 2022-01-19 17:22:[address] [facility] Health KIT COMPUTED TOMOGRAPHY 2022-01-19 13:29:00 [facility] ABDOMEN AND PELVIS WITHOUT CONTRAST CBC/DIFF 2022-01-19 04:44:00 LindseySteve [facility] CBC 2022-01-19 04:44:00 [facility] DIFFERENTIAL, MANUAL (NO 2022-01-19 04:44:00 Steve Lucas rris Health MORPHOLOGY)-[place] BASIC METABOLIC PANEL 2022-01-18 17:15:00 [facility] CBC/DIFF 2022-01-18 04:46:00 Steve Lucas [facility] MAGNESIUM 2022-01-18 04:46:00 Steve Lucas [facility] PHOSPHORUS 2022-01-18 04:46:00 Steve Lucas [facility] BASIC METABOLIC PANEL 2022-01-18 04:46:00 Ori Goldberg [facility] CBC 2022-01-18 04:46:00 Steve Lucas [facility] HIV AG/AB COMBO ROUTINE 2022-01-18 04:46:00 Karin Bassett [facility] SCREENING ENTERIC PATHOGENS NUCLEIC 2022-01-18 03:25:00 Karin Bassett [facility] ACID TEST BASIC METABOLIC PANEL 2022-01-18 00:29:00 Ori Goldberg [facility] BASIC METABOLIC PANEL 2022-01-17 17:07:00 LindseySteve P [facility] s Health BASIC METABOLIC PANEL 2022-01-17 13:15:00 Steve Lucas [facility] CALPROTECTIN FECAL 2022-01-17 12:38:[address] [facility] ealth FECAL LEUKOCYTES 2022-01-17 12:38:00 Steve Lucas [facility] lt T-TRANSGLUTAMINASE IGA 2022-01-17 12:22:00 Steve Lucas P [facility] Health BASIC METABOLIC PANEL 2022-01-17 08:51:00 LindseySteve P [facility] s Health BASIC METABOLIC PANEL 2022-01-17 04:47:00 LindseySteve P [facility] s Health CBC/DIFF 2022-01-17 04:47:00 Steve Lucas [facility] MAGNESIUM 2022-01-17 04:47:00 Steve Lucas [facility] PHOSPHORUS 2022-01-17 04:47:00 Steve Lucas [facility] CBC 2022-01-17 04:47:00 Steve Lucas [facility] BASIC METABOLIC PANEL 2022-01-17 00:08:00 Steve Lucas [facility] s Health 12 LEAD EKG 2022-01-16 21:23:25 Steve Lucas [facility] BASIC METABOLIC PANEL 2022-01-16 21:08:00 Steve Lucasashia levine [facility] XRAY CHEST 2 VIEWS 2022-01-16 19:56:[address] [facility] ealt IP CONSULT TO PHYSICAL 2022-01-16 19:17:17 Steve [facility] THERAPY CONSULT CLINICAL CASE 2022-01-16 19:17:17 Lindsey Steve Santana [facility] MANAGEMENT (RN/SW) SEQUENTIAL COMPRESSION 2022-01-16 19:17:17 Lindsey Steve Esther [facility] PUMP SEQUENTIAL COMPRESSION 2022-01-16 19:17:17 Lindsey Steve P [facility] PUMP SODIUM, URINE, RANDOM 2022-01-16 16:00:00 Kevin Nieves [facility] CREATININE, URINE, RANDOM 2022-01-16 16:00:00 Kevin Nieves [facility] OSMOLALITY, URINE 2022-01-16 16:00:00 Kevin Nieves [facility] SARS-COV-2, FLU A/B, RSV 2022-01-16 15:20:00 Kevin Nieves [facility] CORONAVIRUS, COVID-19, 2022-01-16 15:20:[address] [facility] OLENA FOLIC ACID 2022-01-16 14:13:00 Kevin Nieves [facility] CREATININE POC 2022-01-16 13:55:00 Raymon Martin BMP POC 2022-01-16 13:46:00 Raymon Martin CBC/DIFF 2022-01-16 12:12:00 Raymon Martin CBC 2022-01-16 12:12:00 Raymon Martin BASIC METABOLIC PANEL 2022-01-16 12:11:00 Sadiq Vargas is Health MAGNESIUM 2022-01-16 12:11:00 Sadiq Vargas a lt VITAMIN B12 2022-01-16 12:11:00 Kevin Nieves [facility] OSMOLALITY,SERUM 2022-01-16 12:11:00 NievesFrankieeddie Santana [facility] INFUSION PUMP 2022-01-11 09:21:05 Helene Ring [facility] GLUCOSE POC 2022-01-11 07:54:00 Helene Ring [facility] BASIC METABOLIC PANEL 2022-01-11 04:07:00 Merissa Richards [facility] MAGNESIUM 2022-01-11 04:07:00 Merissa Richards [facility] PHOSPHORUS 2022-01-11 04:07:00 Brodie Richardsphilipp [facility] CBC/DIFF 2022-01-11 04:06:00 Brodie Richardsa Felicita [facility] h IRON PROFILE 2022-01-11 04:06:00 Brodie Richardsa [facility] FOLIC ACID 2022-01-11 04:06:00 Fercho Merissa [facility] CBC 2022-01-11 04:06:00 Brodie Richardsphilipp Mims [facility] h GLUCOSE POC 2022-01-10 18:16:00 Helene Ring [facility] URINALYSIS 2022-01-10 16:10:00 Merissa Richards [facility] h URINALYSIS 2022-01-10 16:10:00 Brodie Richardsa [facility] SARS-COV-2, FLU A/B, RSV 2022-01-10 15:54:00 Merissa Richards [facility] CORONAVIRUS, COVID-19, 2022-01-10 15:54:00 Antoine Hester [facility] OLENA BASIC METABOLIC PANEL 2022-01-10 15:54:00 Merissa Richards [facility] VITAMIN B12 2022-01-10 15:54:00 Brodie Richardsa Felicita [facility] h VBG POC 2022-01-10 11:14:00 Best, Dia Lynne philipp [facility] CBC/DIFF 2022-01-10 11:13:00 Antoine Hester [facility] h BASIC METABOLIC PANEL 2022-01-10 11:13:00 Antoine Hester [facility] LACTIC ACID 2022-01-10 11:13:00 Antoine Hester [facility] CBC 2022-01-10 11:13:00 [facility] LIVER PROFILE 2022-01-10 11:13:00 Merissa Richards [facility] CK, TOTAL 2022-01-10 11:13:00 [facility] FERRITIN 2022-01-10 11:13:00 Merissa Richards [facility] CREATINE KINASE MB (CKMB) 2022-01-10 11:13:00 Merissa Richards [facility] XRAY CHEST 2 VIEWS 2022-01-08 21:50:14 Tanja Sebastian [facility] CBC/DIFF 2022-01-08 21:27:00 Tanja Sebastian [facility] BASIC METABOLIC PANEL 2022-01-08 21:27:00 Tanja Sebastian [facility] LIVER PROFILE 2022-01-08 21:27:00 Tanja Sebastian [facility] CK, TOTAL 2022-01-08 21:27:00 Randa Sebastianandra Watson [facility] TROPONIN I 2022-01-08 21:27:00 Tanja Sebastian [facility] CBC 2022-01-08 21:27:00 Randa Sebastianandra Watson [facility] CREATINE KINASE MB (CKMB) 2022-01-08 21:27:00 Ranad Sebastianandra [facility] 12 LEAD EKG 2022-01-08 20:59:56 Randa Sebastianandra Walter [facility] [id number] 2020-01-09 00:00:00 DARSU.[email or web address] [facility] Plan of Care Planned Activity Planned Date Details Comments Source Future Scheduled 2029-03-23 Screening for malignant [facility] 00:00:00 neoplasm of colon [facility] (procedure) [code = [id number]] Future Scheduled 2029-03-23 Screening for malignant [facility] 00:00:00 neoplasm of colon [facility] (procedure) [code = 919906335] Future Scheduled 2029-03-23 Screening for malignant [facility] 00:00:00 neoplasm of colon [facility] (procedure) [code = 942939931] Future Scheduled 2029-03-23 Screening for malignant [facility] 00:00:00 neoplasm of colon [facility] (procedure) [code = 824814387] Future Scheduled 2029-03-23 Screening for malignant [facility] 00:00:00 neoplasm of colon [facility] (procedure) [code = 970583848] Future Scheduled 2029-03-23 Screening for malignant [facility] 00:00:00 neoplasm of colon [facility] (procedure) [code = 849546755] Future Scheduled 2029-03-23 Screening for malignant [facility] 00:00:00 neoplasm of colon [facility] (procedure) [code = 432096398] Future Scheduled 2029-03-23 Screening for malignant [facility] 00:00:00 neoplasm of colon [facility] (procedure) [code = 040824065] Future Scheduled 2029-03-23 Screening for malignant [facility] 00:00:00 neoplasm of colon [facility] (procedure) [code = 214037355] Future Scheduled 2029-03-23 Screening for malignant [facility] 00:00:00 neoplasm of colon [facility] (procedure) [code = 777896344] Future Scheduled 2029-03-23 Screening for malignant [facility] 00:00:00 neoplasm of colon [facility] (procedure) [code = 267706437] Future Scheduled 2029-03-23 Screening for malignant [facility] 00:00:00 neoplasm of colon [facility] (procedure) [code = 860958296] Future Scheduled 2029-03-23 Screening for malignant [facility] 00:00:00 neoplasm of colon [facility] (procedure) [code = 071740485] Future Scheduled 2029-03-23 Screening for malignant [facility] 00:00:00 neoplasm of colon [facility] (procedure) [code = 011880362] Future Scheduled 2029-03-23 Screening for malignant [facility] 00:00:00 neoplasm of colon [facility] (procedure) [code = 692363739] Future Scheduled 2029-03-23 Screening for malignant [facility] 00:00:00 neoplasm of colon [facility] (procedure) [code = 087497913] Future Scheduled 2029-03-23 Screening for malignant [facility] 00:00:00 neoplasm of colon [facility] (procedure) [code = 639142504] Future Scheduled 2029-03-23 Screening for malignant [facility] 00:00:00 neoplasm of colon [facility] (procedure) [code = 378326515] Future Scheduled 2029-03-23 Screening for malignant [facility] 00:00:00 neoplasm of colon [facility] (procedure) [code = 967946307] Future Scheduled 2029-03-23 Screening for malignant [facility] 00:00:00 neoplasm of colon [facility] (procedure) [code = 713738994] Future Scheduled 2029-03-23 Screening for malignant [facility] 00:00:00 neoplasm of colon [facility] (procedure) [code = 989688799] Future Scheduled 2029-03-23 Screening for malignant [facility] 00:00:00 neoplasm of colon [facility] (procedure) [code = 941256267] Future Scheduled 2029-03-23 Screening for malignant [facility] 00:00:00 neoplasm of colon [facility] (procedure) [code = 897738304] Future Scheduled 2029-03-23 Screening for malignant [facility] 00:00:00 neoplasm of colon [facility] (procedure) [code = 799091368] Future Scheduled 2029-03-23 Screening for malignant [facility] 00:00:00 neoplasm of colon [facility] (procedure) [code = 926030616] Future Scheduled 2029-03-23 Screening for malignant [facility] 00:00:00 neoplasm of colon [facility] (procedure) [code = 129364262] Future Scheduled 2029-03-23 Screening for malignant [facility] 00:00:00 neoplasm of colon [facility] (procedure) [code = 652233964] Future Scheduled 2029-03-23 Screening for malignant [facility] 00:00:00 neoplasm of colon [facility] (procedure) [code = 000506499] Future Scheduled 2029-03-23 Screening for malignant [facility] 00:00:00 neoplasm of colon [facility] (procedure) [code = 928760739] Future Scheduled 2029-03-23 Screening for malignant [facility] 00:00:00 neoplasm of colon [facility] (procedure) [code = 830404957] Future Scheduled 2029-03-23 Screening for malignant [facility] 00:00:00 neoplasm of colon [facility] (procedure) [code = 067569451] Future Scheduled 2029-03-23 Screening for malignant [facility] 00:00:00 neoplasm of colon [facility] (procedure) [code = 720890413] Future Scheduled 2029-03-23 Screening for malignant [facility] 00:00:00 neoplasm of colon [facility] (procedure) [code = 480590929] Future Scheduled 2029-03-23 Screening for malignant [facility] 00:00:00 neoplasm of colon [facility] (procedure) [code = 256436077] Future Scheduled 2029-03-23 Screening for malignant [facility] 00:00:00 neoplasm of colon [facility] (procedure) [code = 917202084] Future Scheduled 2029-03-23 Screening for malignant [facility] 00:00:00 neoplasm of colon [facility] (procedure) [code = 927309717] Future Scheduled 2029-03-23 Screening for malignant [facility] 00:00:00 neoplasm of colon [facility] (procedure) [code = 544337560] Future Scheduled 2029-03-23 Screening for malignant [facility] 00:00:00 neoplasm of colon [facility] (procedure) [code = 803614917] Future Scheduled 2029-03-23 Screening for malignant [facility] 00:00:00 neoplasm of colon [facility] (procedure) [code = 238865706] Future Scheduled 2029-03-23 Screening for malignant [facility] 00:00:00 neoplasm of colon [facility] (procedure) [code = 311670563] Future Scheduled 2029-03-23 Screening for malignant [facility] 00:00:00 neoplasm of colon [facility] (procedure) [code = 075797969] Future Scheduled 2029-03-23 Screening for malignant [facility] 00:00:00 neoplasm of colon [facility] (procedure) [code = 032430462] Future Scheduled 2029-03-23 Screening for malignant [facility] 00:00:00 neoplasm of colon [facility] (procedure) [code = 350853580] Future Scheduled 2022-08-[address] [...] 00:00:00 neoplasm of colon (procedure) [code = 373743428] Future Scheduled 2020-02-14 Screening for malignant [facility] 00:00:00 neoplasm of colon (procedure) [code = 049286814] Future Scheduled 2020-02-14 Screening for malignant [facility] 00:00:00 neoplasm of colon (procedure) [code = 896880624] Future Scheduled 2020-02-14 Screening for malignant [facility] 00:00:00 neoplasm of colon (procedure) [code = 339084262] Future Scheduled 2020-02-14 Screening for malignant [facility] 00:00:00 neoplasm of colon (procedure) [code = 442416943] Future Scheduled 2020-02-14 Screening for malignant [facility] 00:00:00 neoplasm of colon (procedure) [code = 036602792] Future Scheduled 2020-02-14 Screening for malignant [facility] 00:00:00 neoplasm of colon (procedure) [code = 742464888] Future Scheduled 2020-02-14 Screening for malignant [facility] 00:00:00 neoplasm of colon (procedure) [code = 348613980] Future Scheduled 2020-02-14 Screening for malignant [facility] 00:00:00 neoplasm of colon (procedure) [code = 220682969] Future Scheduled 2020-02-14 Screening for malignant [facility] 00:00:00 neoplasm of colon (procedure) [code = 040702117] Future Scheduled 2020-02-14 Screening for malignant [facility] 00:00:00 neoplasm of colon (procedure) [code = 199903278] Future Scheduled 2020-02-14 Screening for malignant [facility] 00:00:00 neoplasm of colon (procedure) [code = 043790952] Future Scheduled 2020-02-14 Screening for malignant [facility] 00:00:00 neoplasm of colon (procedure) [code = 692299810] Future Scheduled 2020-02-14 Screening for malignant [facility] 00:00:00 neoplasm of colon (procedure) [code = 974520679] Future Scheduled 2020-02-14 Screening for malignant [facility] 00:00:00 neoplasm of colon (procedure) [code = 337100538] Future Scheduled 2020-02-14 Screening for malignant [facility] 00:00:00 neoplasm of colon (procedure) [code = 492867122] Future Scheduled 2020-02-14 Screening for malignant [facility] 00:00:00 neoplasm of colon (procedure) [code = 601695335] Future Scheduled 2020-02-14 Screening for malignant [facility] 00:00:00 neoplasm of colon (procedure) [code = 118952680] Future Scheduled 2020-02-14 Screening for malignant [facility] 00:00:00 neoplasm of colon (procedure) [code = 977198783] Future Scheduled 2020-02-14 SHINGLES VACCINES ([address] [facility] 00:00:00 2) [code = [facility] VACCINES (1 of 2)] Future Scheduled 2020-02-14 Screening for malignant [facility] 00:00:00 neoplasm of colon (procedure) [code = 701942999] Future Scheduled 2020-02-14 SHINGLES VACCINES (1 of [...] [facility] 00:00:00 [code = 70051064] [facility] Future Scheduled 2005 Lipid panel (procedure) [facility] 00:00:00 [code = 74964706] Medical Ce [facility]ter Future Scheduled 2005 Lipid panel (procedure) [facility] 00:00:00 [code = 68186362] Medical Ce [facility]ter Future Scheduled 2005 Lipid panel (procedure) [facility] 00:00:00 [code = 48519303] Medical Ce [facility]ter Future Scheduled 2005 Lipid panel (procedure) [facility] 00:00:00 [code = 79100940] Medical Ce [facility]ter Future Scheduled 2005 Lipid panel (procedure) [facility] 00:00:00 [code = 71872543] Medical Ce [facility]ter Future Scheduled 2005 Lipid panel (procedure) [facility] 00:00:00 [code = 45141015] Medical Ce [facility]ter Future Scheduled 2005 Lipid panel (procedure) [facility] 00:00:00 [code = 26118888] Medical Ce [facility]ter Future Scheduled 2005 Lipid panel (procedure) [facility] 00:00:00 [code = 26623822] Medical Ce [facility]ter Future Scheduled 2005 Lipid panel (procedure) [facility] 00:00:00 [code = 99067029] Medical Ce [facility]ter Future Scheduled 2005 Lipid panel (procedure) [facility] 00:00:00 [code = 56670958] Medical Ce [facility]ter Future Scheduled 2005 Lipid panel (procedure) [facility] 00:00:00 [code = 30854937] Medical Ce [facility]ter Future Scheduled 2005 Lipid panel (procedure) [facility] 00:00:00 [code = 72215709] Medical Ce [facility]ter Future Scheduled 2005 Lipid panel (procedure) [facility] 00:00:00 [code = 27746521] Medical Ce [facility]ter Future Scheduled 2005 Lipid panel (procedure) [facility] 00:00:00 [code = 94239783] Medical Ce [facility]ter Future Scheduled 2005 Lipid panel (procedure) [facility] 00:00:00 [code = 83956971] Medical Ce [facility]ter Future Scheduled 2005 Lipid panel (procedure) [facility] 00:00:00 [code = 65511145] Medical Ce [facility]ter Future Scheduled 2005 Lipid panel (procedure) [facility] 00:00:00 [code = 81056653] Medical Ce [facility]ter Future Scheduled 2005 Lipid panel (procedure) [facility] 00:00:00 [code = 74004947] Medical Ce [facility]ter Future Scheduled 2005 Lipid panel (procedure) [facility] 00:00:00 [code = 99643324] Medical Ce [facility]ter Future Scheduled 2005 Lipid panel (procedure) [facility] 00:00:00 [code = 92324398] Medical Ce [facility]ter Future Scheduled 2005 Lipid panel (procedure) [facility] 00:00:00 [code = 78202800] Medical Ce [facility]ter Future Scheduled 1989 DTAP/TDAP/TD [...] Future Scheduled 1970 COVID-19 Vaccine (#1) [facility] 00:00:00 [code = COVID-19 Vaccine [...] Pretty ter VACCINE (#1)] Future Scheduled 1970 Screening for malignant [facility] 00:00:00 neoplasm of colon [facility] (procedure) [code = 150725115] Future Scheduled 1970 Screening for malignant [facility] 00:00:00 neoplasm of colon [facility] (procedure) [code = 633092904] Future Scheduled 1970 Sigmoidoscopy [facility] = [facility]] [facility] Future Scheduled 1970 CT Colonography (combo) [facility] 00:00:00 [code = CT [facility] Future Scheduled 1970 Screening for malignant [facility] 00:00:00 neoplasm of colon [facility] (procedure) [code = 359180365] Future Scheduled 1970 Screening for malignant [facility] 00:00:00 neoplasm of colon [facility] (procedure) [code = 973848197] Future Scheduled 1970 Sigmoidoscopy [facility]code = [facility] S[facility]oscopy] [facility] Future Scheduled 1970 CT Colonography (combo) [facility] 00:00:00 [code = CT [facility] ([facility])] Future Scheduled 1970 Screening for malignant [facility] 00:00:00 neoplasm of colon [facility] (procedure) [code = 943725462] Future Scheduled 1970 Screening for malignant [facility] 00:00:00 neoplasm of colon [facility] (procedure) [code = 584967268] Future Scheduled 1970 Sigmoidoscopy [facility]code = [facility] S[facility]oscopy] [facility] Future Scheduled 1970 CT Colonography (combo) [facility] 00:00:00 [code = CT [facility] ([facility])] Future Scheduled 1970 Screening for malignant [facility] 00:00:00 neoplasm of colon [facility] (procedure) [code = 615621950] Future Scheduled 1970 Screening for malignant [facility] 00:00:00 neoplasm of colon [facility] (procedure) [code = 160779602] Future Scheduled 1970 Sigmoidoscopy [facility]code = [facility] S[facility]oidoscopy] [facility] Future Scheduled 1970 CT Colonography (combo) [facility] 00:00:00 [code = CT [facility] ([facility])] Future Scheduled 1970 Screening for malignant [facility] 00:00:00 neoplasm of colon [facility] (procedure) [code = 377348369] Future Scheduled 1970 Screening for malignant [facility] 00:00:00 neoplasm of colon [facility] (procedure) [code = 443804838] Future Scheduled 1970 Sigmoidoscopy [facility]code = [facility] Future Scheduled 1970 CT Colonography (combo) [facility] 00:00:00 [code = CT [facility] ([facility])] Future Scheduled 1970 Screening for malignant [facility] 00:00:00 neoplasm of colon [facility] (procedure) [code = 403534573] Future Scheduled 1970 Screening for malignant [facility] 00:00:00 neoplasm of colon [facility] Ce [facility] (procedure) [code = 947987052] Future Scheduled 1970 Sigmoidoscopy [facility]code = [facility] S[facility]] [facility] Future Scheduled 1970 CT Colonography (combo) [facility] 00:00:00 [code = CT Colonography [facility] (combo)] Future Scheduled 1970 Screening for malignant [facility] 00:00:00 neoplasm of colon Medical Ce [facility] (procedure) [code = 907635742] Future Scheduled 1970 Screening for malignant [facility] 00:00:00 neoplasm of colon Medical Ce [facility] (procedure) [code = 259949600] Future Scheduled 1970 Sigmoidoscopy [facility]code = [facility]oscopy] [facility] Future Scheduled 1970 CT Colonography (combo) [facility] 00:00:00 [code = CT [facility] ([facility])] Future Scheduled 1970 Screening for malignant [facility] 00:00:00 neoplasm of colon Medical Ce [facility] (procedure) [code = 900437899] Future Scheduled 1970 Screening for malignant [facility] 00:00:00 neoplasm of colon Medical Ce [facility] (procedure) [code = 270008487] Future Scheduled 1970 Sigmoidoscopy [facility]code [facility] S[facility]oscopy] [facility] Future Scheduled 1970 CT Colonography (combo) [facility] 00:00:00 [code = CT Colonography [facility] (combo)] Future Scheduled 1970 Screening for malignant [facility] 00:00:00 neoplasm of colon Medical Ce [facility] (procedure) [code = 044540836] Future Scheduled 1970 Screening for malignant [facility] 00:00:00 neoplasm of colon Medical Ce [facility] (procedure) [code = 407310089] Future Scheduled 1970 Sigmoidoscopy [code = [facility] [...] colon Medical Ce [facility]ter (procedure) [code = 320363009] Future Scheduled 1970 Screening for malignant [facility] 00:00:00 neoplasm of colon Medical Ce [facility] (procedure) [code = 414365344] Future Scheduled 1970 Sigmoidoscopy [code = [facility] S[facility]oscopy] [facility] Future Scheduled 1970 Screening for malignant [facility] 00:00:00 neoplasm of colon Medical Ce [facility] (procedure) [code = 919120733] Future Scheduled 1970 Screening for malignant [facility] 00:00:00 neoplasm of colon [facility] Ce [facility] (procedure) [code = 840023376] Future Scheduled 1970 Sigmoidoscopy [code = [facility] 00:[facility] S[facility]oscopy] [facility] Future Scheduled 1970 CT Colonography (combo) [facility] 00:00:00 [code = CT [facility] ([facility])] Future Scheduled 1970 Screening for malignant [facility] 00:00:00 neoplasm of colon Medical Ce [facility] (procedure) [code = 604269301] Future Scheduled 1970 Screening for malignant [facility] 00:00:00 neoplasm of colon [facility] Ce [facility] (procedure) [code = 838338738] Future Scheduled 1970 Sigmoidoscopy [code = [facility] 00:[facility] S[facility]oscopy] [facility] Future Scheduled 1970 CT Colonography (combo) [facility] 00:00:00 [code = CT [facility] ([facility])] Future Scheduled 1970 Screening for malignant [facility] 00:00:00 neoplasm of colon Medical Ce [facility] (procedure) [code = 890807510] Future Scheduled 1970 Screening for malignant [facility] 00:00:00 neoplasm of colon [facility] Ce [facility] (procedure) [code = 892502797] Future Scheduled 1970 Sigmoidoscopy [code = [facility] 00:[facility] S[facility]oscopy] [facility] Future Scheduled 1970 CT Colonography (combo) [facility] 00:00:00 [code = CT [facility] ([facility])] Future Scheduled 1970 Screening for malignant [facility] 00:00:00 neoplasm of colon [facility] Ce [facility] (procedure) [code = 478421742] Future Scheduled 1970 Screening for malignant [facility] 00:00:00 neoplasm of colon [facility] Ce [facility] (procedure) [code = 721225323] Future Scheduled 1970 Sigmoidoscopy [code = [facility] 00:[facility] S[facility]oidoscopy] [facility] Future Scheduled 1970 CT Colonography (combo) [facility] 00:00:00 [code = CT [facility] ([facility])] Future Scheduled 1970 Screening for malignant [facility] 00:00:00 neoplasm of colon Medical Ce [facility] (procedure) [code = 066554343] Future Scheduled 1970 Screening for malignant [facility] 00:00:00 neoplasm of colon Medical Ce [facility] (procedure) [code = 183657887] Future Scheduled 1970 Sigmoidoscopy [code = [facility] 00:[facility] S[facility]oidoscopy] [facility] Future Scheduled 1970 CT Colonography (combo) [facility] 00:00:00 [code = CT [facility] ([facility])] Future Scheduled 1970 Screening for malignant [facility] 00:00:00 neoplasm of colon Medical Ce [facility] (procedure) [code = 369338052] Future Scheduled 1970 Screening for malignant [facility] 00:00:00 neoplasm of colon Medical Ce [facility] (procedure) [code = 146598695] Future Scheduled 1970 Sigmoidoscopy [code = [facility] 00:[facility] S[facility]oscopy] [facility] Future Scheduled 1970 CT Colonography (combo) [facility] 00:00:00 [code = CT [facility] ([facility])] Future Scheduled 1970 Screening for malignant [facility] 00:00:00 neoplasm of colon Medical Ce [facility] (procedure) [code = 034271110] Future Scheduled 1970 Screening for malignant [facility] 00:00:00 neoplasm of colon Medical Ce [facility] (procedure) [code = 405120357] Future Scheduled 1970 Sigmoidoscopy [code = [facility] 00:[facility] S[facility]oidoscopy] [facility] Future Scheduled 1970 CT Colonography (combo) [facility] 00:00:00 [code = CT [facility] ([facility])] Future Scheduled 1970 Screening for malignant [facility] 00:00:00 neoplasm of colon Medical Ce [facility] (procedure) [code = 889464534] Future Scheduled 1970 Screening for malignant [facility] 00:00:00 neoplasm of colon Medical Ce [facility] (procedure) [code = 768609505] Future Scheduled 1970 Sigmoidoscopy [code = [facility] 00:[facility] S[facility]oscopy] [facility] Future Scheduled 1970 CT Colonography (combo) [facility] 00:00:00 [code = CT [facility] ([facility])] Future Scheduled 1970 Screening for malignant [facility] 00:00:00 neoplasm of colon Medical Ce [facility] (procedure) [code = 260704576] Future Scheduled 1970 Screening for malignant [facility] 00:00:00 neoplasm of colon [facility] Ce [facility] (procedure) [code = 295661206] Future Scheduled 1970 Sigmoidoscopy [code = [facility] 00:[facility] S[facility]oscopy] [facility] Future Scheduled 1970 CT Colonography (combo) [facility] 00:00:00 [code = CT [facility] ([facility])] Future Scheduled 1970 Screening for malignant [facility] 00:00:00 neoplasm of colon Medical Ce [facility] (procedure) [code = 161250707] Future Scheduled 1970 Screening for malignant [facility] 00:00:00 neoplasm of colon Medical Ce [facility] (procedure) [code = 280639182] Future Scheduled 1970 Sigmoidoscopy [code = [facility] 00:[facility] S[facility]oscopy] [facility] Future Scheduled 1970 CT Colonography (combo) [facility] 00:00:00 [code = CT Colonography [facility] (combo)] Future Scheduled 1970 Screening for malignant [facility] 00:00:00 neoplasm of colon Medical Ce [facility] (procedure) [code = 523034259] Future Scheduled 1970 Screening for malignant [facility] 00:00:00 neoplasm of colon Medical Ce [facility] (procedure) [code = 389384664] Future Scheduled 1970 Sigmoidoscopy [code = [facility] 00:[facility] S[facility]oscopy] [facility] Future Scheduled 1970 CT Colonography (combo) [facility] 00:00:00 [code = CT Colonography [facility] (combo)] Encounters Start End Encounter Admission Attending Care Care Encounter Source Date/Time Date/Time Type Type Clinicians Facility Department ID 2020-02-23 Inpatient H[facility]M LENNY [id number] [facility] 18:42:00 89 [facility] 2020-02-17 Inpatient EM Avtar, HCAPM MAS [id number] [facility] 00:22:00 Oladipo 75 [facility] 2020-01-05 Inpatient UR Perea, HCAPM MEDI.01 [id number] [facility] 20:23:00 Mark 40 [facility] 2019-12-13 Inpatient HCAMN JULIA [id number] [facility] 17:52:[address] [facility] 2022-03-29 2022-03-29 Emergency EM White, HCACL AERS [id number] [facility] 14:26:00 16:45:00 Steve 28 [facility] 2022-03-29 2022-03-29 Emergency EM White, HCACL HCACL [id number] [facility] 14:26:00 16:45:00 Steve [address] [facility] 2022-03-25 2022-03-26 Inpatient E RICHARD [facility] MED 750[address] [facility] 13:38:00 10:16:00 , YESSI 2022-03-15 2022-03-18 Emergency E RADHA, [facility] 7502 [facility] 13:36:00 18:59:00 NELSON 2022-03-13 2022-03-13 Emergency [facility] [id number] Lynne 15:33:00 20:25:00 [facility] 2022-03-13 2022-03-13 [facility] [facility] [id number] [place] 15:33:00 20:25:00 [facility] 2022-03-13 2022-03-13 Outpatient ROANLD, [facility] [id number] [place] 00:00:00 00:00:00 [facility] 2022-03-06 2022-03-09 Inpatient ER ANYA LEÓN [facility] Emergency 20 [id number] [facility] 12:16:00 12:55:00 2022-03-06 2022-03-09 [facility] 1 [id number] [facility] St 12:16:00 12:55:00 Encounter Dee Dee Montalvo Fang-Ying M edical Heinen, Allison P[facility] León Odell [facility] 2022-03-06 2022-03-09 [facility] [id number] [facility] 12:16:00 12:55:00 Encounter Dee Dee Montalvo Fang-Ying M edical Heinen, Allison P. [facility] León Odell [facility] 2022-03-06 2022-03-06 Outpatient [facility] [id number] [facility] 00:00:00 23:59:00 Cynthia 2022-03-06 2022-03-[address] [facility] [id number] 00:00:00 00:00:00 Only [facility] 2022-03-06 2022-03-06 Travel [facility] [id number] [facility] 00:[facility]00 [facility] 2022-03-06 2022-03-[address] [facility] [id number] 00:00:00 00:00:00 Only [facility] 2022-03-06 2022-03-06 Travel [facility] [id number] [facility] 00:[facility]00 00:00:00 [facility] 2022-02-18 2022-02-20 Emergency Teddy Carbajal [facility] [id number] [place] 13:58:00 11:55:00 [facility], Rufino Laz Blake [facility] 2022-02-18 2022-02-20 Emergency Jamal Carbajald [facility] [id number] [place] 13:58:00 11:55:00 [facility] Laz Blake Kobe 2022-02-18 2022-02-18 [facility] [id number] [place] 15:19:05 15:23:18 [facility] 2022-02-18 2022-02-18 Outpatient [facility] [id number] [place] 13:58:00 13:58:00 [facility] 2022-02-18 2022-02-18 [facility] [id number] [place] 00:00:00 00:00:00 , OSCAR Khannacarmen 2022-02-07 2022-02-11 [facility] [id number] [place] 13:40:00 13:22:00 [facility] 2022-02-07 2022-02-11 [facility] [id number] [place] 13:40:00 13:22:00 [facility] 2022-02-07 2022-02-07 Outpatient 1 MEGHAN ISLAS [facility] [id number] [place] 13:40:00 13:40:00 [facility] 2022-01-30 2022-01-30 Emergency [facility] [id number] [facility] 17:02:00 18:29:00 Dwain Carmona [facility] 2022-01-302022-01-30 Emergency SEAN Pacheco, [facility] [id number] [facility] 17:02:00 18:29:00 Dwain Ortiz [facility] 2022-01-22 2022-01-22 Emergency [facility] [id number] [place] 17:24:00 20:39:00 [facility] 2022-01-22 2022-01-22 Emergency [facility] [id number] [place] 17:24:00 20:39:00 [facility] 2022-01-16 2022-01-21 Emergency Raymon Martin [facility] [id number] [place] 11:04:00 18:08:00 Karin Bassett Julian C Agrawal, Parth P 2022-01-16 2022-01-21 Emergency Raymon Martin [facility] [id number] [place] 11:04:00 18:08:00 Karin Bassett Julian C Agrawal, Parth P 2022-01-19 2022-01-19 Outpatient [facility] [id number] [place] 12:34:08 13:29:31 [facility] 2022-01-16 2022-01-16 Outpatient [facility] [id number] [place] 19:42:28 20:01:28 [facility] 2022-01-16 2022-01-16 Outpatient 1 DANYELLE [facility] [id number] [place] 11:04:00 11:04:00 KARIN Daniels 2022-01-10 2022-01-11 Emergency Bert Reed [facility] [id number] Maged 10:58:00 11:20:00 Helene Ring [facility] Merissa Richards 2022-01-10 2022-01-11 Emergency Bert Reed [facility] [id number] [place] 10:58:00 11:20:00 Helene Ring [facility] Merissa Richards Q 2022-01-10 2022-01-10 Outpatient 1 JUSTIN [facility] [id number] [place] 10:58:00 10:58:00 HELENE [facility] 2022-01-08 2022-01-09 Emergency [facility] [id number] [place] 17:57:00 02:50:00 [facility] 2022-01-08 2022-01-09 Emergency [facility] [id number] [place] 17:57:00 02:50:00 [facility] 2022-01-08 2022-01-08 Emergency [facility] [id number] [place] 21:40:34 21:50:19 [facility] 2021-09-23 2021-09-23 Emergency EM Amita Raffaele [facility] AERS [id number] [facility] 19:35:00 21:10:00 74 [facility] 2021-09-13 2021-09-13 Emergency EM Amita Raffaele [facility]AC[facility] AERS [id number] [facility] 14:57:00 16:37:00 06 [facility] 2021-07-27 2021-07-27 Emergency EM Kateryna, HCAMN JULIA [id number] [facility] 10:15:00 12:36:00 Tarek 17 [facility] 2021-07-22 2021-07-22 Emergency EM Marcelina, HCACL AERS [id number] [facility] 04:25:00 08:20:00 Tarsumi 74 [facility] 2021-06-27 2021-06-27 Emergency EM White, HCACL AERS [id number] [facility] 15:31:00 17:37:00 Steve 17 [facility] 2021-04-28 2021-05-01 Inpatient EM Aisha, [facility]ACL MAS [id number] [facility] 21:05:00 14:18:00 Christopher 03 [facility] 2020-02-24 2020-02-24 Outpatient MASON PereaCL LABO [id number] [facility] 07:51:00 07:51:00 Mark 96 [facility] 2020-02-18 2020-02-18 Outpatient Avtar [facility]ACL LABO [id number] [facility] 00:26:00 00:26:00 Oladipo 05 [facility] 2020-01-05 2020-01-05 Outpatient MASON PereaCL [facility] [id number] [facility] 23:52:00 23:52:00 Mark 24 [facility] 2017-11-02 2017-11-02 Emergency E [facility] [id number] 08:33:00 08:33:00 [facility] 2017-08-05 2017-08-05 Outpatient [facility] [id number] [place] 00:00:00 00:00:00 [facility] 2017-07-28 2017-07-28 Outpatient [facility] [id number] [place] 00:00:00 00:00:00 [facility] 2017-06-24 2017-06-24 Outpatient [facility] [id number] [place] 00:00:00 00:00:00 [facility] 2017-06-22 2017-06-22 Emergency [facility] [id number] [place] 21:37:29 21:37:29 [facility] 2017-06-22 2017-06-22 Emergency [facility] [id number] [place] 21:06:00 21:06:00 [facility] 2017-06-22 2017-06-22 Outpatient [facility] [id number] [place] 10:02:31 10:02:31 [facility] 2017-06-09 2017-06-09 Outpatient [facility] [id number] [place] 00:00:00 00:00:00 [facility] 2017-06-09 2017-06-09 Outpatient [facility] [id number] [place] 00:00:00 00:00:00 [facility] 2017-05-08 2017-05-08 Emergency [facility] [id number] [place] 01:04:44 01:04:44 [facility] 2017-05-05 2017-05-05 Emergency E [facility] [id number] 08:11:00 08:11:00 [facility] 2017-04-15 2017-04-15 Emergency E [facility] [id number] 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 BASIC METABOLIC [id number] 14:56:00 Test Item Value Reference Range Interpretation [...] MG/DL 70-110 N - XR CHEST 1 [id number] 00:00:00 [facility]: MARIA ISABEL JOSEPH : 1970 Sex: M FAX: Steve Urias MD [phone] [place]: [place] St: REG Name: JOSEPHMARIA ISABEL FSED : 1970 Age/S: 52/M [address] [facility] Unit #: [id number] Loc: [place] [address] Phys: Steve Urias MD Acct: [id number] DisDate: Status: REG ER PHONE #: Exam Date: 03/29/2022 150 FAX #: Reason: Weakness EXAMS: CPT CODE: [id number] XR CHEST 1 V 79109 PROCEDURE INFORMATION: Exam: XR Chest Exam date [...] 03/29/2022 (1531) PAGE 1 Signed ReportHEPATIC FUNCTION [id number] 06:45:03 Test Item Value Reference Range Interpretation [...] (test code = 13 U/L 6-55 347) Private Duty Rn ID - ERWIN WBASIC METABOLIC [id number] 06:45:02 Test Item Value Reference Range Interpretation [...] S NOT APPLICABLE FOR DIALYSIS PATIEN TS. Private Duty Rn ID - ERWIN WCBC W/PLT COUNT & AUTO [id number] 06:26:54 Test Item Value Reference Range Interpretation [...] (BEAKER) (test code = 2801) U/S, RENAL, [id number] 19:23:00Reason for exam:->[facility] 1970 Sex: MFINAL REPORT [...] Unremarkable. IMPRESSION:Unremarkable ultrasound of the kidneys. Signed: Moi, Amberly MDReport Verified Date/Time: 03/06/2022 19:23:41 -CoV2/RT-PCR (Asymptomatic ONLY)2022-03-06 19:17:07 Test Item Value Reference Interpretation Comments Range SARS-COV2/RT-PCR Negative Negative The SARS-Co V-2 (test code = target nucleic 99882-0) acids are not detected in thi s [...] revoked sooner. Fact Sheet for Healthcare Providers: https://www.[employer]/Documents/Xp ert%20Xpress%20SAR S%20CoV-2/Fact%20S heets/3023802%20S ARS-COV-2%20HEALTH CARE%20PROVIDERS%2 0FACT%20SHEET.pdf Fact Sheet for Healthcare Patients: https://www.[employer]/Documents/Xp ert%20Xpress%20SAR S%20CoV-2/Fact%20S heets/3023801%20S ARS-COV-2%20PATIEN T%20FACT%20SHEET.p df Lab Interpretation Normal (test code = 66137-7) [facility]2022-03-06 19:17:07 Test Item Value Reference Interpretation Comments Range SARS-COV2/RT-PCR Negative Negative The SARS-Co V-2 (test code = target nucleic 07331-1) acids are not detected in thi s [...] revoked sooner. Fact Sheet for Healthcare Providers: https://www.[employer]/Documents/Xp ert%20Xpress%20SAR S%20CoV-2/Fact%20S heets/3023802%20S ARS-COV-2%20HEALTH CARE%20PROVIDERS%2 0FACT%20SHEET.pdf Fact Sheet for Healthcare Patients: https://www.[employer]/Documents/Xp ert%20Xpress%20SAR S%20CoV-2/Fact%20S heets/3023801%20S ARS-COV-2%20PATIEN T%20FACT%20SHEET.p df Lab Interpretation Normal (test code = 31252-9) [facility]2022-03-06 19:17:07 Test Item Value Reference Interpretation Comments Range SARS-COV2/RT-PCR Negative Negative The SARS-Co V-2 (test code = target nucleic 47856-0) acids are not detected in thi s [...] revoked sooner. Fact Sheet for Healthcare Providers: https://www.[employer]/Documents/Xp ert%20Xpress%20SAR S%20CoV-2/Fact%20S heets/302-3802%20S ARS-COV-2%20HEALTH CARE%20PROVIDERS%2 0FACT%20SHEET.pdf Fact Sheet for Healthcare Patients: https://www.[employer]/Documents/Xp ert%20Xpress%20SAR S%20CoV-2/Fact%20S heets/302-3801%20S ARS-COV-2%20PATIEN T%20FACT%20SHEET.p df Lab Interpretation Normal (test code = 71414-5) [facility]2022-03-06 19:17:07 Test Item Value Reference Interpretation Comments Range SARS-COV2/RT-PCR Negative Negative The SARS-Co V-2 (test code = target nucleic 02580-1) acids are not detected in thi s [...] revoked sooner. Fact Sheet for Healthcare Providers: https://www.[employer]/Documents/Xp ert%20Xpress%20SAR S%20CoV-2/Fact%20S heets/302-3802%20S ARS-COV-2%20HEALTH CARE%20PROVIDERS%2 0FACT%20SHEET.pdf Fact Sheet for Healthcare Patients: https://www.[employer]/Documents/Xp ert%20Xpress%20SAR S%20CoV-2/Fact%20S heets/302-3801%20S ARS-COV-2%20PATIEN T%20FACT%20SHEET.p df Lab Interpretation Normal (test code = 65063-1) [facility]2022-03-06 19:17:07 Test Item Value Reference Interpretation Comments Range SARS-COV2/RT-PCR Negative Negative The SARS-Co V-2 (test code = target nucleic 61514-7) acids are not detected in thi s [...] revoked sooner. Fact Sheet for Healthcare Providers: https://www.[employer]/Documents/Xp ert%20Xpress%20SAR S%20CoV-2/Fact%20S heets/302-3802%20S ARS-COV-2%20HEALTH CARE%20PROVIDERS%2 0FACT%20SHEET.pdf Fact Sheet for Healthcare Patients: https://www.[employer]/Documents/Xp ert%20Xpress%20SAR S%20CoV-2/Fact%20S heets/302-3801%20S ARS-COV-2%20PATIEN T%20FACT%20SHEET.p df Lab Interpretation Normal (test code = 49288-7) [facility]As[facility]omatic ONLY)2022-03-06 19:17:07 Test Item Value Reference Interpretation Comments Range SARS-COV2/RT-PCR Negative Negative The SARS-Co V-2 (test code = target nucleic 79180-3) acids are not detected in thi s [...] revoked sooner. Fact Sheet for Healthcare Providers: https://www.[employer]/Documents/Xp ert%20Xpress%20SAR S%20CoV-2/Fact%20S heets/302-3802%20S ARS-COV-2%20HEALTH CARE%20PROVIDERS%2 0FACT%20SHEET.pdf Fact Sheet for Healthcare Patients: https://www.[employer]/Documents/Xp ert%20Xpress%20SAR S%20CoV-2/Fact%20S heets/302-3801%20S ARS-COV-2%20PATIEN T%20FACT%20SHEET.p df Lab Interpretation Normal (test code = 08380-9) [facility])2022-03-06 19:17:07 Test Item Value Reference Interpretation Comments Range SARS-COV2/RT-PCR Negative Negative The SARS-Co V-2 (test code = target nucleic 68753-0) acids are not detected in thi s [...] revoked sooner. Fact Sheet for Healthcare Providers: https://www.[employer]/Documents/Xp ert%20Xpress%20SAR S%20CoV-2/Fact%20S heets/302-3802%20S ARS-COV-2%20HEALTH CARE%20PROVIDERS%2 0FACT%20SHEET.pdf Fact Sheet for Healthcare Patients: https://www.[employer]/Documents/Xp ert%20Xpress%20SAR S%20CoV-2/Fact%20S heets/302-3801%20S ARS-COV-2%20PATIEN T%20FACT%20SHEET.p df Lab Interpretation Normal (test code = 58887-1) [facility]2022-03-06 19:17:07 Test Item Value Reference Interpretation Comments Range SARS-COV2/RT-PCR Negative Negative The SARS-Co V-2 (test code = target nucleic 75654-7) acids are not detected in thi s [...] revoked sooner. Fact Sheet for Healthcare Providers: https://www.[employer]/Documents/Xp ert%20Xpress%20SAR S%20CoV-2/Fact%20S heets/302-3802%20S ARS-COV-2%20HEALTH CARE%20PROVIDERS%2 0FACT%20SHEET.pdf Fact Sheet for Healthcare Patients: https://www.[employer]/Documents/Xp ert%20Xpress%20SAR S%20CoV-2/Fact%20S heets/302-3801%20S ARS-COV-2%20PATIEN T%20FACT%20SHEET.p df Lab Interpretation Normal (test code = 53386-8) [facility])2022-03-06 19:17:07 Test Item Value Reference Interpretation Comments Range SARS-COV2/RT-PCR Negative Negative The SARS-Co V-2 (test code = target nucleic 13590-4) acids are not detected in thi s [...] revoked sooner. Fact Sheet for Healthcare Providers: https://www.[employer]/Documents/Xp ert%20Xpress%20SAR S%20CoV-2/Fact%20S heets/302-3802%20S ARS-COV-2%20HEALTH CARE%20PROVIDERS%2 0FACT%20SHEET.pdf Fact Sheet for Healthcare Patients: https://[employer]/Documents/Xp ert%20Xpress%20SAR S%20CoV-2/Fact%20S heets/302-3801%20S ARS-COV-2%20PATIEN T%20FACT%20SHEET.p df Lab Interpretation Normal (test code = 03720-2) [facility]2022-03-06 19:17:07 Test Item Value Reference Interpretation Comments Range SARS-COV2/RT-PCR Negative Negative The SARS-Co V-2 (test code = target nucleic 54478-3) acids are not detected in thi s [...] revoked sooner. Fact Sheet for Healthcare Providers: https://www.[employer]/Documents/Xp ert%20Xpress%20SAR S%20CoV-2/Fact%20S heets/302-3802%20S ARS-COV-2%20HEALTH CARE%20PROVIDERS%2 0FACT%20SHEET.pdf Fact Sheet for Healthcare Patients: https://[employer]/Documents/Xp ert%20Xpress%20SAR S%20CoV-2/Fact%20S heets/302-3801%20S ARS-COV-2%20PATIEN T%20FACT%20SHEET.p df Lab Interpretation Normal (test code = 28900-0) [facility]2022-03-06 19:17:07 Test Item Value Reference Interpretation Comments Range SARS-COV2/RT-PCR Negative Negative The SARS-Co V-2 (test code = target nucleic 81236-7) acids are not detected in thi s [...] revoked sooner. Fact Sheet for Healthcare Providers: https://www.[employer]/Documents/Xp ert%20Xpress%20SAR S%20CoV-2/Fact%20S heets/302-3802%20S ARS-COV-2%20HEALTH CARE%20PROVIDERS%2 0FACT%20SHEET.pdf Fact Sheet for Healthcare Patients: https://www.[employer]/Documents/Xp ert%20Xpress%20SAR S%20CoV-2/Fact%20S heets/302-3801%20S ARS-COV-2%20PATIEN T%20FACT%20SHEET.p df Lab Interpretation Normal (test code = 49296-4) [facility])2022-03-06 19:17:07 Test Item Value Reference Interpretation Comments Range SARS-COV2/RT-PCR Negative Negative The SARS-Co V-2 (test code = target nucleic 19319-9) acids are not detected in thi s [...] revoked sooner. Fact Sheet for Healthcare Providers: https://www.[employer]/Documents/Xp ert%20Xpress%20SAR S%20CoV-2/Fact%20S heets/302-3802%20S ARS-COV-2%20HEALTH CARE%20PROVIDERS%2 0FACT%20SHEET.pdf Fact Sheet for Healthcare Patients: https://www.[employer]/Documents/Xp ert%20Xpress%20SAR S%20CoV-2/Fact%20S heets/302-3801%20S ARS-COV-2%20PATIEN T%20FACT%20SHEET.p df Lab Interpretation Normal (test code = 96464-9) [facility]2022-03-06 19:17:07 Test Item Value Reference Interpretation Comments Range SARS-COV2/RT-PCR Negative Negative The SARS-Co V-2 (test code = target nucleic 32279-9) acids are not detected in thi s [...] revoked sooner. Fact Sheet for Healthcare Providers: https://www.[employer]/Documents/Xp ert%20Xpress%20SAR S%20CoV-2/Fact%20S heets/302-3802%20S ARS-COV-2%20HEALTH CARE%20PROVIDERS%2 0FACT%20SHEET.pdf Fact Sheet for Healthcare Patients: https://www.[employer]/Documents/Xp ert%20Xpress%20SAR S%20CoV-2/Fact%20S heets/302-3801%20S ARS-COV-2%20PATIEN T%20FACT%20SHEET.p df Lab Interpretation Normal (test code = 77914-4) [facility]2022-03-06 19:17:07 Test Item Value Reference Interpretation Comments Range SARS-COV2/RT-PCR Negative Negative The SARS-Co V-2 (test code = target nucleic 90331-0) acids are not detected in thi s [...] SARS-CoV-2 in a [facility] s suspected of [facility]-19 [...] revoked sooner. Fact Sheet for Healthcare Providers: https://www.[employer]/Documents/Xp ert%20Xpress%20SAR S%20CoV-2/Fact%20S heets/302-3802%20S ARS-COV-2%20HEALTH CARE%20PROVIDERS%2 0FACT%20SHEET.pdf Fact Sheet for Healthcare Patients: https://www.[employer]/Documents/Xp ert%20Xpress%20SAR S%20CoV-2/Fact%20S heets/302-3801%20S ARS-COV-2%20PATIEN T%20FACT%20SHEET.p df Lab Interpretation Normal (test code = 12128-0) [facility]2022-03-06 19:17:07 Test Item Value Reference Interpretation Comments Range SARS-COV2/RT-PCR Negative Negative The SARS-Co V-2 (test code = target nucleic 00139-1) acids are not detected in thi s [...] revoked sooner. Fact Sheet for Healthcare Providers: https://www.[employer]/Documents/Xp ert%20Xpress%20SAR S%20CoV-2/Fact%20S heets/302-3802%20S ARS-COV-2%20HEALTH CARE%20PROVIDERS%2 0FACT%20SHEET.pdf Fact Sheet for Healthcare Patients: https://www.[employer]/Documents/Xp ert%20Xpress%20SAR S%20CoV-2/Fact%20S heets/302-3801%20S ARS-COV-2%20PATIEN T%20FACT%20SHEET.p df Lab Interpretation Normal (test code = 42074-9) [facility]2022-03-06 19:17:07 Test Item Value Reference Interpretation Comments Range SARS-COV2/RT-PCR Negative Negative The SARS-Co V-2 (test code = target nucleic 86301-6) acids are not detected in thi s [...] revoked sooner. Fact Sheet for Healthcare Providers: https://www.[employer]/Documents/Xp ert%20Xpress%20SAR S%20CoV-2/Fact%20S heets/302-3802%20S ARS-COV-2%20HEALTH CARE%20PROVIDERS%2 0FACT%20SHEET.pdf Fact Sheet for Healthcare Patients: https://www.[employer]/Documents/Xp ert%20Xpress%20SAR S%20CoV-2/Fact%20S heets/302-3801%20S ARS-COV-2%20PATIEN T%20FACT%20SHEET.p df Lab Interpretation Normal (test code = 93472-9) [facility]2022-03-06 19:17:07 Test Item Value Reference Interpretation Comments Range SARS-COV2/RT-PCR Negative Negative The SARS-Co V-2 (test code = target nucleic 18874-7) acids are not detected in thi s [...] revoked sooner. Fact Sheet for Healthcare Providers: https://www.[employer]/Documents/Xp ert%20Xpress%20SAR S%20CoV-2/Fact%20S heets/3023802%20S ARS-COV-2%20HEALTH CARE%20PROVIDERS%2 0FACT%20SHEET.pdf Fact Sheet for Healthcare Patients: https://www.[employer]/Documents/Xp ert%20Xpress%20SAR S%20CoV-2/Fact%20S heets/302-3801%20S ARS-COV-2%20PATIEN T%20FACT%20SHEET.p df Lab Interpretation Normal (test code = 50240-1) [facility]2022-03-06 19:17:07 Test Item Value Reference Interpretation Comments Range SARS-COV2/RT-PCR Negative Negative The SARS-Co V-2 (test code = target nucleic 38866-9) acids are not detected in thi s [...] revoked sooner. Fact Sheet for Healthcare Providers: https://www.[employer]/Documents/Xp ert%20Xpress%20SAR S%20CoV-2/Fact%20S heets/302-3802%20S ARS-COV-2%20HEALTH CARE%20PROVIDERS%2 0FACT%20SHEET.pdf Fact Sheet for Healthcare Patients: https://www.[employer]/Documents/Xp ert%20Xpress%20SAR S%20CoV-2/Fact%20S heets/302-3801%20S ARS-COV-2%20PATIEN T%20FACT%20SHEET.p df Lab Interpretation Normal (test code = 48873-5) [facility]As[facility]omatic ONLY)2022-03-06 19:17:07 Test Item Value Reference Interpretation Comments Range SARS-COV2/RT-PCR Negative Negative The SARS-Co V-2 (test code = target nucleic 97414-5) acids are not detected in thi s [...] revoked sooner. Fact Sheet for Healthcare Providers: https://www.[employer]/Documents/Xp ert%20Xpress%20SAR S%20CoV-2/Fact%20S heets/3023802%20S ARS-COV-2%20HEALTH CARE%20PROVIDERS%2 0FACT%20SHEET.pdf Fact Sheet for Healthcare Patients: https://www.[employer]/Documents/Xp ert%20Xpress%20SAR S%20CoV-2/Fact%20S heets/302-3801%20S ARS-COV-2%20PATIEN T%20FACT%20SHEET.p df Lab Interpretation Normal (test code = 98780-7) [facility] 19:17:07 Test Item Value Reference Interpretation Comments Range SARS-COV2/RT-PCR Negative Negative The SARS-Co V-2 (test code = target nucleic 25929-7) acids are not detected in thi s specimen. Negat ectro results do not preclude SARS-C oV-2 infection [...] revoked sooner. Fact Sheet for Healthcare Providers: https://www.[employer]/Documents/Xp ert%20Xpress%20SAR S%20CoV-2/Fact%20S heets/302-3802%20S ARS-COV-2%20HEALTH CARE%20PROVIDERS%2 0FACT%20SHEET.pdf Fact Sheet for Healthcare Patients: https://www.[employer]/Documents/Xp ert%20Xpress%20SAR S%20CoV-2/Fact%20S heets/302-3801%20S ARS-COV-2%20PATIEN T%20FACT%20SHEET.p df Lab Interpretation Normal (test code = 51262-2) [facility]2022-[facility]-06 19:17:07 Test Item Value Reference Interpretation Comments Range SARS-COV2/RT-PCR Negative Negative The SARS-Co V-2 (test code = target nucleic 20095-9) acids are not detected in thi s [...] revoked sooner. Fact Sheet for Healthcare Providers: https://www.[employer]/Documents/Xp ert%20Xpress%20SAR S%20CoV-2/Fact%20S heets/302-3802%20S ARS-COV-2%20HEALTH CARE%20PROVIDERS%2 0FACT%20SHEET.pdf Fact Sheet for Healthcare Patients: https://www.[employer]/Documents/Xp ert%20Xpress%20SAR S%20CoV-2/Fact%20S heets/302-3801%20S ARS-COV-2%20PATIEN T%20FACT%20SHEET.p df Lab Interpretation Normal (test code = 07005-6) [facility]2022-03-06 19:17:07 Test Item Value Reference Range Interpretation Comments SARS-COV2/RT-PCR Negative Negative The SARS-Co V-2 target (test code = nucleic acids a re not 0705628) detected in thi s specimen. Negative result [...] revoked sooner. Fact Sheet for Healthcare Providers: https://www.[employer]/Documents/Xpert%20Xpress%20SARS%20CoV-2/Fact%20Sheets/3023802%95QPSS-XOO-0%20 HEALTHCARE%20PROVIDERS%20FACT%20SHEET.pdf Fact Sheet for Healthcare Patients: https://www.[employer]/Documents/Xpert%20Xp ress%20SARS%20CoV-2/Fact%20Sheets/3023801%37WLKG-EKR-0%20PATIENT%20FACT%20SHEET .pdfCREATINE KINASE (CK)2022-03-06 16:19:14 Test Item Value Reference Range Interpretation Comments CREATINE KINASE TOTAL (BEAKER) (test 141 U/L 29200 code = 380) Private Duty Rn ID - BST4, [id number] 15:13:16 Test Item Value Reference Range Interpretation Comments FREE T4 (BEAKER) (test code = 655) 0.95 ng/dL 0.70-1.48 Private Duty Rn ID - BSTSH/FREE T4 IF [id number] 15:13:16 Test Item Value Reference Range Interpretation Comments THYROID STIMULATING HORMONE 2.060 uIU/mL 0.350-4.940 (GILMAR) (test code = 772) Private Duty Rn ID - BSB-TYPE NATRIURETIC FACTOR (BNP)2022-03-06 14:26:30 Test Item Value Reference Range Interpretation Comments B-TYPE NATRIURETIC PEPTIDE (GILMAR) < pg/mL 0-100 (test code = 700) Private Duty Rn ID - JSHIGH SENSITIVITY TROPONIN [id number] 14:14:54 Test Item Value Reference Range Interpretation Comments HIGH SENSITIVITY < pg/ml See_Comment [Automated message] TROPONIN I (test code = The system which 8644065) generated this result transmitted ref erence range: <=35. Th e reference range was not used to interpr et this result as normal/abnormal . Private Duty Rn ID - JSThe FOREIGN LANGUAGE STENOGRAPHER STAT High Sensitivity Troponin-I results should be used in conjunctionwith other diagnostic information such as ECG, clinical observations and information, and patient symptoms to aid in the diagnosis of SD.RAD, CHEST, 1 VIEW, NON [id number] 14:10:00Reason for exam:- >NEUROLOGIC PROBLEMShould this be performed at the bedside?->Yes [facility] 1970 Sex: MFINAL REPORT Chest, 1 view, 03/06/2022 2:03 PM. History: Neurologic problem. Comparison: 03/28/2019. Discussion: The cardiomediastinal silhouette and pulmonary vasculature are within normal limits for a portable exam. The lungs are clear without evidence of consolidation or effusion. The soft tissues and osseous structures are intact. IMPRESSION: No acute cardiopulmonary abnormality. Signed: Bernabe Brown MDReport Verified Date/Time: 03/06/2022 14:10:44 REHENSIVE METABOLIC [id number] 14:08:22 Test Item Value Reference Range Interpretation [...] S NOT APPLICABLE FOR DIALYSIS PATIEN TS. Private Duty Rn ID - [id number] 14:07:49 Test Item Value Reference Range Interpretation Comments MAGNESIUM (BEAKER) (test code = 2.0 mg/dL 1.6-2.6 627) Private Duty Rn ID - [id number] 14:07:49 Test Item Value Reference Range Interpretation Comments PHOSPHORUS (BEAKER) (test code = 5.6 mg/dL 2.3-4.7 H 604) Private Duty Rn ID - NATALYLACTIC ACID, [id number] 13:51:04 Test Item Value Reference Range Interpretation Comments LACTATE BLOOD VENOUS 1.32 mmol/L 0.50-2.20 Specime n slightly (2) (BEAKER) (test hemolyzed code = 6542) Private Duty Rn ID - JSCBC W/PLT COUNT & AUTO [id number] 13:47:24 Test Item Value Reference Range Interpretation [...] (BEAKER) (test code = 2801) Coronavirus, CoVID-19, [id number] 01:07:20 Test Item Value Reference Range Interpretation Comments COVID-19 (SARS-COV-2) Not Detected Not Detected INTERP RETATION: No (test code = 18992-7) detect able levels of SARS-CoV-2 Coronavirus (COVID-19) [...] SARS-CoV-2 mole cular diagnostic assa y utilizes Assistant Editor Mediated Amplification ( TMA) technology to r apidly detect the SARS -CoV-2 (COVID-19) viru s from respiratory adriana ples. In accordance w ith the FDA's kamran nce document "Polic y for Diagnostic Test s for Coronavirus Disease-2019 du [facility] the [facility]", thi s test was developed, and its performance characteristics were verified by the [facility] molecular diagn ostics laboratory and is authorized for clinical diagno stic use. This labor atory is certified un est[place] the Clinical Laboratory Improvement Amendments (CLI A) as qualified to pe rform high complexity clinical labora tory testing. Lab Interpretation Normal (test code = 87069-2) Maged Aaronavirus, CoVID-19, [id number] 01:07:20 Test Item Value Reference Range Interpretation Comments COVID-19 (SARS-COV-2) Not Detected Not Detected INTERP RETATION: No (test code = 06658-6) detect able levels of SARS-CoV-2 Coronavirus (COVID-19) [...] SARS-CoV-2 mole cular diagnostic assa y utilizes Assistant Editor Mediated Amplification ( TMA) technology to r apidly detect the SARS -CoV-2 (COVID-19) viru s from respiratory adriana ples. In accordance w ith the FDA's kamran nce document "Polic y for Diagnostic Test s for Coronavirus Disease-2019 du ring the Public [facility] Emergency", thi s test was developed, and its performance characteristics were verified by the [facility] molecular diagn ostics laboratory and is authorized for clinical diagno stic use. This labor atory is certified un [place] the Clinical Laboratory Improvement Amendments (CLI A) as qualified to pe rform high complexity clinical labora tory testing. Lab Interpretation Normal (test code = 80824-2) Maged Aaronavirus, CoVID-19, [id number] 01:07:20 Test Item Value Reference Range Interpretation Comments COVID-19 (SARS-COV-2) Not Detected Not Detected INTERP RETATION: No (test code = 29850-4) detect able levels of SARS-CoV-2 Coronavirus (COVID-19) [...] SARS-CoV-2 mole cular diagnostic assa y utilizes Assistant Editor Mediated Amplification ( TMA) technology to r apidly detect the SARS -CoV-2 (COVID-19) viru s from respiratory adriana ples. In accordance w ith the FDA's kamran nce document "Polic y for Diagnostic Test s for Coronavirus Disease-2019 du [facility] the Public [facility] Emergency", thi s test was developed, and its performance characteristics were verified by the [facility] molecular diagn ostics laboratory and is authorized for clinical diagno stic use. This labor atory is certified un est[place] the Clinical Laboratory Improvement Amendments (CLI A) as qualified to pe rform high complexity clinical labora tory testing. Lab Interpretation Normal (test code = 25133-6) [facility] [id number] 01:07:20 Test Item Value Reference Range Interpretation Comments COVID-19 (SARS-COV-2) Not Detected Not Detected INTERP RETATION: No (test code = 88035-9) detect able levels of SARS-CoV-2 Coronavirus (COVID-19) [...] SARS-CoV-2 mole cular diagnostic assa y utilizes Assistant Editor Mediated Amplification ( TMA) technology to r apidly detect the SARS -CoV-2 (COVID-19) viru s from respiratory adriana ples. In accordance w ith the FDA's kamran nce document "Polic y for Diagnostic Test s for Coronavirus Disease-2019 du ring the [facility] Emergency", thi s test was developed, and its performance characteristics were verified by the [facility] molecular diagn ostics laboratory and is authorized for clinical diagno stic use. This labor atory is certified un [place] the Clinical Laboratory Improvement Amendments (CLI A) as qualified to pe rform high complexity clinical labora tory testing. Lab Interpretation Normal (test code = 56514-8) [facility], [id number] 01:07:20 Test Item Value Reference Range Interpretation Comments COVID-19 (SARS-COV-2) Not Detected Not Detected INTERP RETATION: No (test code = 90928-8) detect able levels of SARS-CoV-2 Coronavirus (COVID-19) [...] SARS-CoV-2 mole cular diagnostic assa y utilizes Assistant Editor Mediated Amplification ( TMA) technology to r apidly detect the SARS -CoV-2 (COVID-19) viru s from respiratory adriana ples. In accordance w ith the FDA's kamran nce document "Polic y for Diagnostic Test s for Coronavirus Disease-2019 du ring the Public [facility]al [facility] Emergency", thi s test was developed, and its performance characteristics were verified by the [facility] molecular diagn ostics laboratory and is authorized for clinical diagno stic use. This labor atory is certified un est[place] the Clinical Laboratory Improvement Amendments (CLI A) as qualified to pe rform high complexity clinical labora tory testing. Lab Interpretation Normal (test code = 49256-2) Maged Aaronavirus, CoVID-19, [id number] 01:07:20 Test Item Value Reference Range Interpretation Comments COVID-19 (SARS-COV-2) Not Detected Not Detected INTERP RETATION: No (test code = 04559-6) detect able levels of SARS-CoV-2 Coronavirus (COVID-19) [...] SARS-CoV-2 mole cular diagnostic assa y utilizes Assistant Editor Mediated Amplification ( TMA) technology to r apidly detect the SARS -CoV-2 (COVID-19) viru s from respiratory adriana ples. In accordance w ith the FDA's kamran nce document "Polic y for Diagnostic Test s for Coronavirus Disease-2019 du ring the Public [facility]al Emergency", thi s test was developed, and its performance characteristics were verified by the [facility] molecular diagn ostics laboratory and is authorized for clinical diagno stic use. This labor atory is certified un [place] the Clinical Laboratory Improvement Amendments (CLI A) as qualified to pe rform high complexity clinical labora tory testing. Lab Interpretation Normal (test code = 52220-7) Maged Ruelasronavirus, CoVID-19, [id number] 01:07:20 Test Item Value Reference Range Interpretation Comments COVID-19 (SARS-COV-2) Not Detected Not Detected INTERP RETATION: No (test code = 30576-9) detect able levels of SARS-CoV-2 Coronavirus (COVID-19) [...] SARS-CoV-2 mole cular diagnostic assa y utilizes Assistant Editor Mediated Amplification ( TMA) technology to r apidly detect the SARS -CoV-2 (COVID-19) viru s from respiratory adriana ples. In accordance w ith the FDA's kamran nce document "Polic y for Diagnostic Test s for Coronavirus Disease-2018 du [facility] the [facility] Emergency", thi s test was developed, and its performance characteristics were verified by the [facility] molecular diagn ostics laboratory and is authorized for clinical diagno stic use. This labor atory is certified un est[place] the Clinical Laboratory Improvement Amendments (CLI A) as qualified to pe rform high complexity clinical labora tory testing. Lab Interpretation Normal (test code = 36875-3) [facility], [id number] 01:07:20 Test Item Value Reference Range Interpretation Comments COVID-19 (SARS-COV-2) Not Detected Not Detected INTERP RETATION: No (test code = 63319-3) detect able levels of SARS-CoV-2 Coronavirus (COVID-19) [...] SARS-CoV-2 mole cular diagnostic assa y utilizes Assistant Editor Mediated Amplification ( TMA) technology to r apidly detect the SARS -CoV-2 (COVID-19) viru s from respiratory adriana ples. In accordance w ith the FDA's kamran nce document "Polic y for Diagnostic Test s for Coronavirus Disease-2019 du [facility] the Public [facility] Emergency", thi s test was developed, and its performance characteristics were verified by the [facility] molecular diagn ostics laboratory and is authorized for clinical diagno stic use. This labor atory is certified un est[place] the Clinical Laboratory Improvement Amendments (CLI A) as qualified to pe rform high complexity clinical labora tory testing. Lab Interpretation Normal (test code = 92583-0) [facility], [id number] 01:07:20 Test Item Value Reference Range Interpretation Comments COVID-19 (SARS-COV-2) Not Detected Not Detected INTERP RETATION: No (test code = 83643-4) detect able levels of SARS-CoV-2 Coronavirus (COVID-19) [...] SARS-CoV-2 mole cular diagnostic assa y utilizes Assistant Editor Mediated Amplification ( TMA) technology to r apidly detect the SARS -CoV-2 (COVID-19) viru s from respiratory adriana ples. In accordance w ith the FDA's kamran nce document "Polic y for Diagnostic Test s for Coronavirus Disease-2019 du ring the Public [facility] Emergency", thi s test was developed, and its performance characteristics were verified by the [facility] molecular diagn ostics laboratory and is authorized for clinical diagno stic use. This labor atory is certified un [place] the Clinical Laboratory Improvement Amendments (CLI A) as qualified to pe rform high complexity clinical labora tory testing. Lab Interpretation Normal (test code = 73533-8) [facility]ie[facility] KandiCoronavirus, CoVID-19, [id number] 01:07:20 Test Item Value Reference Range Interpretation Comments COVID-19 (SARS-COV-2) Not Detected Not Detected INTERP RETATION: No (test code = 12426-7) detect able levels of SARS-CoV-2 Coronavirus (COVID-19) [...] SARS-CoV-2 mole cular diagnostic assa y utilizes Assistant Editor Mediated Amplification ( TMA) technology to r apidly detect the SARS -CoV-2 (COVID-19) viru s from respiratory adriana ples. In accordance w ith the FDA's kamran nce document "Polic y for Diagnostic Test s for Coronavirus Disease-2019 du [facility] the Public [facility] Emergency", thi s test was developed, and its performance characteristics were verified by the [facility] molecular diagn ostics laboratory and is authorized for clinical diagno stic use. This labor atory is certified un est[place] the Clinical Laboratory Improvement Amendments (CLI A) as qualified to pe rform high complexity clinical labora tory testing. Lab Interpretation Normal (test code = 03066-1) [facility], [id number] 01:07:20 Test Item Value Reference Range Interpretation Comments COVID-19 (SARS-COV-2) Not Detected Not Detected INTERP RETATION: No (test code = 06107-2) detect able levels of SARS-CoV-2 Coronavirus (COVID-19) [...] SARS-CoV-2 mole cular diagnostic assa y utilizes Assistant Editor Mediated Amplification ( TMA) technology to r apidly detect the SARS -CoV-2 (COVID-19) viru s from respiratory adriana ples. In accordance w ith the FDA's kamran nce document "Polic y for Diagnostic Test s for Coronavirus Disease-2019 du [facility] the [facility] Emergency", thi s test was developed, and its performance characteristics were verified by the [facility] molecular diagn ostics laboratory and is authorized for clinical diagno stic use. This labor atory is certified un est[place] the Clinical Laboratory Improvement Amendments (CLI A) as qualified to pe rform high complexity clinical labora tory testing. Lab Interpretation Normal (test code = 06543-2) [facility], [id number] 01:07:20 Test Item Value Reference Range Interpretation Comments COVID-19 (SARS-COV-2) Not Detected Not Detected INTERP RETATION: No (test code = 54274-5) detect able levels of SARS-CoV-2 Coronavirus (COVID-19) [...] SARS-CoV-2 mole cular diagnostic assa y utilizes Assistant Editor Mediated Amplification ( TMA) technology to r apidly detect the SARS -CoV-2 (COVID-19) viru s from respiratory adriana ples. In accordance w ith the FDA's kamran nce document "Polic y for Diagnostic Test s for Coronavirus Disease-2019 du ring the Public Heal Emergency", thi s test was developed, and its performance characteristics were verified by the [facility] molecular diagn ostics laboratory and is authorized for clinical diagno stic use. This labor atory is certified un estevan the Clinical Laboratory Improvement Amendments (CLI A) as qualified to pe rform high complexity clinical labora tory testing. Lab Interpretation Normal (test code = 67965-7) [facility], [id number] 01:07:20 Test Item Value Reference Range Interpretation Comments COVID-19 (SARS-COV-2) Not Detected Not Detected INTERP RETATION: No (test code = 84471-9) detect able levels of SARS-CoV-2 Coronavirus (COVID-19) [...] SARS-CoV-2 mole cular diagnostic assa y utilizes Assistant Editor Mediated Amplification ( TMA) technology to r apidly detect the SARS -CoV-2 (COVID-19) viru s from respiratory adriana ples. In accordance w ith the FDA's kamran nce document "Polic y for Diagnostic Test s for Coronavirus Disease-2019 du ring the Public [facility] Emergency", thi s test was developed, and its performance characteristics were verified by the [facility] molecular diagn ostics laboratory and is authorized for clinical diagno stic use. This labor atory is certified un estev[place] the Clinical Laboratory Improvement Amendments (CLI A) as qualified to pe rform high complexity clinical labora tory testing. Lab Interpretation Normal (test code = 20215-1) [facility], [id number] 01:07:20 Test Item Value Reference Range Interpretation Comments COVID-19 (SARS-COV-2) Not Detected Not Detected INTERP RETATION: No (test code = 26844-7) detect able levels of SARS-CoV-2 Coronavirus (COVID-19) [...] SARS-CoV-2 mole cular diagnostic assa y utilizes Assistant Editor Mediated Amplification ( TMA) technology to r apidly detect the SARS -CoV-2 (COVID-19) viru s from respiratory adriana ples. In accordance w ith the FDA's kamran nce document "Polic y for Diagnostic Test s for Coronavirus Disease-2019 du ring the [facility] Emergency", thi s test was developed, and its performance characteristics were verified by the [facility] molecular diagn ostics laboratory and is authorized for clinical diagno stic use. This labor atory is certified un estevan the Clinical Laboratory Improvement Amendments (CLI A) as qualified to pe rform high complexity clinical labora tory testing. Lab Interpretation Normal (test code = 49072-0) [facility], [id number] 01:07:20 Test Item Value Reference Range Interpretation Comments COVID-19 (SARS-COV-2) Not Detected Not Detected INTERP RETATION: No (test code = 21278-1) detect able levels of SARS-CoV-2 Coronavirus (COVID-19) [...] SARS-CoV-2 mole cular diagnostic assa y utilizes Assistant Editor Mediated Amplification ( TMA) technology to r apidly detect the SARS -CoV-2 (COVID-19) viru s from respiratory adriana ples. In accordance w ith the FDA's kamran nce document "Polic y for Diagnostic Test s for Coronavirus Disease-2019 du [facility] the Public [facility] Emergency", thi s test was developed, and its performance characteristics were verified by the [facility] molecular diagn ostics laboratory and is authorized for clinical diagno stic use. This labor atory is certified un estevan the Clinical Laboratory Improvement Amendments (CLI A) as qualified to pe rform high complexity clinical labora tory testing. Lab Interpretation Normal (test code = 15368-5) [facility], [id number] 01:07:20 Test Item Value Reference Range Interpretation Comments COVID-19 (SARS-COV-2) Not Detected Not Detected INTERP RETATION: No (test code = 50659-0) detect able levels of SARS-CoV-2 Coronavirus (COVID-19) [...] SARS-CoV-2 mole cular diagnostic assa y utilizes Assistant Editor Mediated Amplification ( TMA) technology to r apidly detect the SARS -CoV-2 (COVID-19) viru s from respiratory adriana ples. In accordance w ith the FDA's kamran nce document "Polic y for Diagnostic Test s for Coronavirus Disease-2019 du [facility] the Public [facility] Emergency", thi s test was developed, and its performance characteristics were verified by the [facility] molecular diagn ostics laboratory and is authorized for clinical diagno stic use. This labor atory is certified un estevan the Clinical Laboratory Improvement Amendments (CLI A) as qualified to pe rform high complexity clinical labora tory testing. Lab Interpretation Normal (test code = 74329-0) [facility] CoV[facility], [id number] 01:07:20 Test Item Value Reference Range Interpretation Comments COVID-19 (SARS-COV-2) Not Detected Not Detected INTERP RETATION: No (test code = 77624-6) detect able levels of SARS-CoV-2 Coronavirus (COVID-19) [...] SARS-CoV-2 mole cular diagnostic assa y utilizes Assistant Editor Mediated Amplification ( TMA) technology to r apidly detect the SARS -CoV-2 (COVID-19) viru s from respiratory adriana ples. In accordance w ith the FDA's kamran nce document "Polic y for Diagnostic Test s for Coronavirus Disease-2019 du [facility] the [facility] Emergency", thi s test was developed, and its performance characteristics were verified by the [facility] molecular diagn ostics laboratory and is authorized for clinical diagno stic use. This labor atory is certified un est[place] the Clinical Laboratory Improvement Amendments (CLI A) as qualified to pe rform high complexity clinical labora tory testing. Lab Interpretation Normal (test code = 05578-5) [facility], [id number] 01:07:20 Test Item Value Reference Range Interpretation Comments COVID-19 (SARS-COV-2) Not Detected Not Detected INTERP RETATION: No (test code = 43636-2) detect able levels of SARS-CoV-2 Coronavirus (COVID-19) [...] SARS-CoV-2 mole cular diagnostic assa y utilizes Assistant Editor Mediated Amplification ( TMA) technology to r apidly detect the SARS -CoV-2 (COVID-19) viru s from respiratory adriana ples. In accordance w ith the FDA's kamran nce document "Polic y for Diagnostic Test s for Coronavirus Disease-2019 du [facility] the [facility] Emergency", thi s test was developed, and its performance characteristics were verified by the [facility] molecular diagn ostics laboratory and is authorized for clinical diagno stic use. This labor atory is certified un est[place] the Clinical Laboratory Improvement Amendments (CLI A) as qualified to pe rform high complexity clinical labora tory testing. Lab Interpretation Normal (test code = 46574-1) [facility] CenterLeonardronavirus, CoVID-19, [id number] 01:07:20 Test Item Value Reference Range Interpretation Comments COVID-19 (SARS-COV-2) Not Detected Not Detected INTERP RETATION: No (test code = 36692-9) detect able levels of SARS-CoV-2 Coronavirus (COVID-19) [...] SARS-CoV-2 mole cular diagnostic assa y utilizes Assistant Editor Mediated Amplification ( TMA) technology to r apidly detect the SARS -CoV-2 (COVID-19) viru s from respiratory adriana ples. In accordance w ith the FDA's kamran nce document "Polic y for Diagnostic Test s for Coronavirus Disease-2019 du [facility] the [facility] Emergency", thi s test was developed, and its performance characteristics were verified by the [facility] molecular diagn ostics laboratory and is authorized for clinical diagno stic use. This labor atory is certified un estevan the Clinical Laboratory Improvement Amendments (CLI A) as qualified to pe rform high complexity clinical labora tory testing. Lab Interpretation Normal (test code = 56044-7) Maged ChauCoronavirus, CoVID-19, [id number] 01:07:20 Test Item Value Reference Range Interpretation Comments COVID-19 (SARS-COV-2) Not Detected Not Detected INTERP RETATION: No (test code = 21245-5) detect able levels of SARS-CoV-2 Coronavirus (COVID-19) [...] SARS-CoV-2 mole cular diagnostic assa y utilizes Assistant Editor Mediated Amplification ( TMA) technology to r apidly detect the SARS -CoV-2 (COVID-19) viru s from respiratory adriana ples. In accordance w ith the FDA's kamran nce document "Polic y for Diagnostic Test s for Coronavirus Disease-2018 du [facility] the Public [facility] Emergency", thi s test was developed, and its performance characteristics were verified by the [facility] molecular diagn ostics laboratory and is authorized for clinical diagno stic use. This labor atory is certified un [place] the Clinical Laboratory Improvement Amendments (CLI A) as qualified to pe rform high complexity clinical labora tory testing. Lab Interpretation Normal (test code = 59378-9) [facility]WizwknXYGO-BnS-2 ORF1ab Resp Ql OLENA+hotwd3909-11-07 01:07:20 Test Item Value Reference Range Interpretation Comments Hospitalized? (test No code = 71930-3) ICU? (test code = No 28332-6) Symptomatic as No defined by CDC? (test code = 77489-3) Employed in No Healthcare? (test code = 62549-9) Resident in a No congregate care setting (including nursing homes, residential care for people with intellectual and developmental disabilities, psychiatric treatment facilities, group homes, board and care homes, homeless retirement, foster care or other): (test code = 98617-2) SARS-CoV-2 ORF1ab NOT DETECTED Not Detected INTERPRETA TION: No Resp Ql OLENA+probe detectable levels of (test code = SARS-CoV-2 36048-0) Coronavirus (COVID-19) were present in this patient's [...] SARS-CoV-2 mole cular diagnostic assa y utilizes Assistant Editor Mediated Amplification ( TMA) technology to r apidly detect the SARS -CoV-2 (COVID-19) viru s from respiratory adriana ples. In accordance with\\XC2A0\\the FDA's guidance docume nt "Policy for Diagnostic Test s for Coronavirus Disease-2019 du [facility] the [facility] Emergency", ginger s test was developed, and its performance characteristics were verified by the [facility] molecular diagn ostics laboratory and is authorized for clinical diagno stic use. \\XC2A0\\Thi s laboratory is certified under the Clinical Labora tory Improvement Amendments (CLI A) as qualified to pe rform high complexity clinical labora tory testing. [facility] uczfyg0482-77-47 08:09:01 Test Item Value Reference Range Interpretation Comments Glucose POC (test code = 72353071) 85 mg/dL 74-106 Lab Interpretation (test code = Normal 72101-8) [facility] hkacsu5105-65-40 08:09:01 Test Item Value Reference Range Interpretation Comments Glucose POC (test code = 90093830) 85 mg/dL 74-106 Lab Interpretation (test code = Normal 34426-1) [facility] GLUCOSE POC docked unueef9652-45-37 08:09:01 Test Item Value Reference Range Interpretation Comments Glucose POC (test code = 45586266) 85 mg/dL 74-106 Lab Interpretation (test code = Normal 04933-0) [facility] audopr8623-18-78 08:09:01 Test Item Value Reference Range Interpretation Comments Glucose POC (test code = 39304397) 85 mg/dL 74-106 Lab Interpretation (test code = Normal 10867-0) [facility] GLUCOSE POC docked xjyxit1860-66-64 08:09:01 Test Item Value Reference Range Interpretation Comments Glucose POC (test code = 54649416) 85 mg/dL 74-106 Lab Interpretation (test code = Normal 68859-8) [facility] qxeljq4148-67-72 08:09:01 Test Item Value Reference Range Interpretation Comments Glucose POC (test code = 22819042) 85 mg/dL 74-106 Lab Interpretation (test code = Normal 66169-1) [facility] fhbfrk9058-72-24 08:09:01 Test Item Value Reference Range Interpretation Comments Glucose POC (test code = 61163436) 85 mg/dL 74-106 Lab Interpretation (test code = Normal 73578-6) [facility] mvxnkj7490-83-84 08:09:01 Test Item Value Reference Range Interpretation Comments Glucose POC (test code = 06829722) 85 mg/dL 74-106 Lab Interpretation (test code = Normal 76712-3) [facility] umfdmp4717-38-77 08:09:01 Test Item Value Reference Range Interpretation Comments Glucose POC (test code = 98636272) 85 mg/dL 74-106 Lab Interpretation (test code = Normal 18909-9) [facility] vtjzei8457-21-39 08:09:01 Test Item Value Reference Range Interpretation Comments Glucose POC (test code = 23640314) 85 mg/dL 74-106 Lab Interpretation (test code = Normal 34924-4) [facility] oedbqd3276-67-49 08:09:01 Test Item Value Reference Range Interpretation Comments Glucose POC (test code = 62865316) 85 mg/dL 74-106 Lab Interpretation (test code = Normal 02866-8) [facility] mhbfid2366-13-82 08:09:01 Test Item Value Reference Range Interpretation Comments Glucose POC (test code = 42077192) 85 mg/dL 74-106 Lab Interpretation (test code = Normal 40180-2) [facility] gyyfft1716-05-68 08:09:01 Test Item Value Reference Range Interpretation Comments Glucose POC (test code = 43660124) 85 mg/dL 74-106 Lab Interpretation (test code = Normal 33853-4) [facility] twiuur7676-19-13 08:09:01 Test Item Value Reference Range Interpretation Comments Glucose POC (test code = 52640874) 85 mg/dL 74-106 Lab Interpretation (test code = Normal 93802-4) [facility] xlncdh3699-56-33 08:09:01 Test Item Value Reference Range Interpretation Comments Glucose POC (test code = 57273473) 85 mg/dL 74-106 Lab Interpretation (test code = Normal 54335-3) [facility] hfscde0561-49-75 08:09:01 Test Item Value Reference Range Interpretation Comments Glucose POC (test code = 39402459) 85 mg/dL 74-106 Lab Interpretation (test code = Normal 81860-3) [facility] uzbefl2892-54-16 08:09:01 Test Item Value Reference Range Interpretation Comments Glucose POC (test code = 60691398) 85 mg/dL 74-106 Lab Interpretation (test code = Normal 59973-4) [facility] xzhcye0051-94-97 08:09:01 Test Item Value Reference Range Interpretation Comments Glucose POC (test code = 74167853) 85 mg/dL 74-106 Lab Interpretation (test code = Normal 79291-2) [facility] cdvnco4214-33-00 08:09:01 Test Item Value Reference Range Interpretation Comments Glucose POC (test code = 91660866) 85 mg/dL 74-106 Lab Interpretation (test code = Normal 58964-8) [facility] hwtahc0015-94-22 08:09:01 Test Item Value Reference Range Interpretation Comments Glucose POC (test code = 44227844) 85 mg/dL 74-106 Lab Interpretation (test code = Normal 14407-8) [facility]rtk[facility]oVAL[facility]wE[facility] ORF1ab Resp Ql OLENA+jxypb6916-00-00 23:25:40 Test Item Value Reference Range Interpretation Comments Hospitalized? (test No code = 36695-9) ICU? (test code = No 82713-3) Symptomatic as No defined by CDC? (test code = 36040-9) Employed in No Healthcare? (test code = 76430-1) Resident in a No congregate care setting (including nursing homes, residential care for people with intellectual and developmental disabilities, psychiatric treatment facilities, group homes, board and care homes, homeless retirement, foster care or other): (test code = 65168-9) SARS-CoV-2 ORF1ab NOT DETECTED Not Detected INTERPRETA TION: No Resp Ql OLENA+probe detectable levels of (test code = SARS-CoV-2 09476-6) Coronavirus (COVID-19) were present in this patient's [...] SARS-CoV-2 mole cular diagnostic assa y utilizes Assistant Editor Mediated Amplification ( TMA) technology to r apidly detect the SARS -CoV-2 (COVID-19) viru s from respiratory adriana ples. In accordance with\\XC2A0\\the FDA's guidance docume nt "Policy for Diagnostic Test s for Coronavirus Disease-2019 [facility] the [facility] Emergency", ginger levine test was developed, and its performance characteristics were verified by the [facility] molecular diagn ostics laboratory and is authorized for clinical diagno stic use. \\XC2A0\\Ginger s laboratory is certified under the Clinical Labora tory Improvement Amendments (CLI A) as qualified to pe rform high complexity clinical labora tory testing. [facility]12 Lead [id number] 15:46:1012 LEAD EKG FOR [facility] Test Date: 8210-25-50Erg Name: DORA JOSEPH Department: 5ECIPatient ID: [id number] Room: Gender: M Gem Setter: [id number]: 1970 Requested By: DARRION Cho Number: [id number] Reading MD: Rene Patterson MeasurementsIntervals [place] Rate: 61 P: 72PR: 152 QRS: 55QRSD: 106 T: 63QT: 398 QTc: 400 Interpretive StatementsSINUS RHYTHMPOSSIBLE RIGHT VENTRICULAR CONDUCTION DELAY [RSR (QR) IN V1/V2]Electronically Signed On 01-22-2022 8:30:45 CDT by Rene DebbyAdAdaptedCompaProvidence St. [facility]12 Lead [id number] 15:46:1012 LEAD EKG FOR [facility] Test Date: 8392-37-94Mja Name: DORA JOSEPH Department: 5ECIPatient ID: [id number] Room: Gender: M Gem Setter: [id number]: 1970 Requested By: DARRION Cho Number: [id number] Reading MD: Rene Patterson MeasurementsIntervals [place] Rate: 61 P: 72PR: 152 QRS: 55QRSD: 106 T: 63QT: 398 QTc: 400 Interpretive StatementsSINUS RHYTHMPOSSIBLE RIGHT VENT RICULAR CONDUCTION DELAY [RSR (QR) IN V1/V2]Electronically Signed On 01-22-2022 8:30:[address] [facility] HospitalWork For PieKadlec [facility] Medical Center12 Lead [id number] 15:46:1012 LEAD EKG FOR [facility] Test Date: 2286-61-77Qck Name: DORA JOSEPH Department: 5ECIPatient ID: [id number] Room: Gender: M Gem Setter: [id number]: 1970 Requested By: DARRION Cho Number: [id number] Reading MD: Rene Patterson MeasurementsIntervals [place] Rate: 61 P: 72PR: 152 QRS: 55QRSD: 106 T: 63QT: 398 QTc: 400 Interpretive StatementsSINUS RHYTHMPOSSIBLE RIGHT VENTRICULAR CONDUCTION DELAY [RSR (QR) IN V1/V2]Electronically Signed On 01-22-2022 8:30:[address] [facility] HospitalWork For PieWadley Regional Medical CenterEdufii Mcahmf09 Lead [id number] 15:46:1012 LEAD EKG FOR [facility] Test Date: 2207-15-18Aur Name: DORA JOSEPH Department: 5ECIPatient ID: [id number] Room: Gender: M Gem Setter: [id number]: 1970 Requested By: DARRION Cho Number: [id number] Reading MD: Rene Patterson MeasurementsIntervals [place] Rate: 61 P: 72PR: 152 QRS: 55QRSD: 106 T: 63QT: 398 QTc: 400 Interpretive StatementsSINUS RHYTHMPOSSIBLE RIGHT VENTRICULAR CONDUCTION DELAY [RSR (QR) IN V1/V2]Electronically Signed On 01-22-2022 8:30:45 CDT by Rene Valle Pewvhs79 Lead [id number] 15:46:1012 LEAD EKG FOR [facility] Test Date: 2104-88-31Buq Name: DROA JOSEPH Department: 5ECIPatient ID: [id number] Room: Gender: M Gem Setter: [id number]: 1970 Requested By: DARRION Cho Number: [id number] Reading MD: Rene Patterson MeasurementsIntervals [place] Rate: 61 P: 72PR: 152 QRS: 55QRSD: 106 T: 63QT: 398 QTc: 400 Interpretive StatementsSINUS RHYTHMPOSSIBLE RIGHT VENTRICULAR CONDUCTION DELAY [RSR (QR) IN V1/V2]Electronically Signed On 01-22-2022 8:30:45 CDT by Rene Valle Gxamzf92 Lead [id number] 15:46:1012 LEAD EKG FOR [facility] Test Date: 2575-01-12Aat Name: DORA JOSEPH Department: 5ECIPatient ID: [id number] Room: Gender: M Gem Setter: [id number]: 1970 Requested By: DARRION Cho Number: [id number] Reading MD: Rene Patterson MeasurementsIntervals [place] Rate: 61 P: 72PR: 152 QRS: 55QRSD: 106 T: 63QT: 398 QTc: 400 Interpretive StatementsSINUS RHYTHMPOSSIBLE RIGHT VENTR ICULAR CONDUCTION DELAY [RSR (QR) IN V1/V2]Electronically Signed On 01-22-2022 8:30:45 CDT by Rene Valle Jwfena15 Lead [id number] 15:46:1012 LEAD EKG FOR [facility] Test Date: 9259-00-81Qjb Name: DORA JOSEPH Department: 5ECIPatient ID: [id number] Room: Gender: M Gem Setter: [id number]: 1970 Requested By: DARRION Cho Number: [id number] Reading MD: Rene Patterson MeasurementsIntervals [place] Rate: 61 P: 72PR: 152 QRS: 55QRSD: 106 T: 63QT: 398 QTc: 400 Interpretive StatementsSINUS RHYTHMPOSSIBLE RIGHT VENTRICULAR CONDUCTION DELAY [RSR (QR) IN V1/V2]Electronically Signed On 01-22-2022 8:30:45 CDT by Rene [facility] Qkhwce85 Lead [id number] 15:46:1012 LEAD EKG FOR [facility] Test Date: 9663-38-28Ngq Name: DORA JOSEPH Department: 5ECIPatient ID: [id number] Room: Gender: M Gem Setter: [id number]: 1970 Requested By: DARRION Cho Number: [id number] Lawson MD: Rene Patterson MeasurementsIntervals [place] Rate: 61 P: 72PR: 152 QRS: 55QRSD: 106 T: 63QT: 398 QTc: 400 Interpretive StatementsSINUS RHYTHMPOSSIBLE RIGHT VENTRICULAR CONDUCTION DELAY [RSR (QR) IN V1/V2]Electronically Signed On 01-22-2022 8:30:45 CDT by Rene Valle Wqoxsw83 Lead [id number] 15:46:1012 LEAD EKG FOR [facility] Test Date: 6150-71-14Ley Name: DORA JOSEPH Department: 5ECIPatient ID: [id number] Room: Gender: M Gem Setter: [id number]: 1970 Requested By: DARRION Cho Number: [id number] Reading : Rene Patterson MeasurementsIntervals [place] Rate: 61 P: 72PR: 152 QRS: 55QRSD: 106 T: 63QT: 398 QTc: 400 Interpretive StatementsSINUS RHYTHMPOSSIBLE RIGHT VENTRICULAR CONDUCTION DELAY [RSR (QR) IN V1/V2]Electronically Signed On 01-22-2022 8:30:45 CDT by [place] [address] Lead [id number] 15:46:1012 LEAD EKG FOR [facility] Test Date: 9760-12-66Rei Name: DORA JOSEPH Department: 5ECIPatient ID: [id number] Room: Gender: M Gem Setter: [id number]: 1970 Requested By: DARRION Cho Number: [id number] Reading MD: Rene Patterson MeasurementsIntervals [place] Rate: 61 P: 72PR: 152 QRS: 55QRSD: 106 T: 63QT: 398 QTc: 400 Interpretive StatementsSINUS RHYTHMPOSSIBLE RIGHT VENTRI CULAR CONDUCTION DELAY [RSR (QR) IN V1/V2]Electronically Signed On 01-22-2022 8:30:[address] [facility] HospitalPunch Through DesignJessica [place] [address] Lead [id number] 15:46:1012 LEAD EKG FOR [facility] Test Date: 1532-80-68Waw Name: DORA JOSEPH Department: 5ECIPatient ID: [id number] Room: Gender: M Gem Setter: [id number]: 1970 Requested By: DARRION Cho Number: [id number] Reading MD: Rene Patterson MeasurementsIntervals [place] Rate: 61 P: 72PR: 152 QRS: 55QRSD: 106 T: 63QT: 398 QTc: 400 Interpretive StatementsSINUS RHYTHMPOSSIBLE RIGHT VENTRICULAR CONDUCTION DELAY [RSR (QR) IN V1/V2]Electronically Signed On 01-22-2022 8:30:[address] Anne HospitalDebbyJessica Ville [address] Lead [id number] 15:46:1012 LEAD EKG FOR [facility] Test Date: 8530-46-87Lke Name: DORA JOSEPH Department: 5ECIPatient ID: [id number] Room: Gender: M Gem Setter: [id number]: 1970 Requested By: DARRION Cho Number: [id number] Reading MD: Rene Patterson MeasurementsIntervals [place] Rate: 61 P: 72PR: 152 QRS: 55QRSD: 106 T: 63QT: 398 QTc: 400 Interpretive StatementsSINUS RHYTHMPOSSIBLE RIGHT VENTRICULAR CONDUCTION DELAY [RSR (QR) IN V1/V2]Electronically Signed On 01-22-2022 8:30:45 CDT by Rene RaanSCAHarris Gbqoxh71 Lead [id number] 15:46:1012 LEAD EKG FOR [facility] Test Date: 9741-75-43Bjb Name: DORA JOSEPH Department: 5ECIPatient ID: [id number] Room: Gender: M Gem Setter: [id number]: 1970 Requested By: DARRION Cho Number: [id number] Lawson MD: Rene Patterson MeasurementsIntervals [place] Rate: 61 P: 72PR: 152 QRS: 55QRSD: 106 T: 63QT: 398 QTc: 400 Interpretive StatementsSINUS RHYTHMPOSSIBLE RIGHT VENTRICULAR CONDUCTION DELAY [RSR (QR) IN V1/V2]Electronically Signed On 01-22-2022 8:30:45 CDT by Rene [facility] CenterDebbySelect [facility]12 Lead [id number] 15:46:1012 LEAD EKG FOR [facility] Test Date: 2413-78-07Fcq Name: DORA JOSEPH Department: 5ECIPatient ID: [id number] Room: Gender: M Gem Setter: [id number]: 1970 Requested By: DARRION Cho Number: [id number] Lawson MD: Rene Patterson MeasurementsIntervals [place] Rate: 61 P: 72PR: 152 QRS: 55QRSD: 106 T: 63QT: 398 QTc: 400 Interpretive StatementsSINUS RHYTHMPOSSIBLE RIGHT VENTRI CULAR CONDUCTION DELAY [RSR (QR) IN V1/V2]Electronically Signed On 01-22-2022 8:30:45 CDT by ReneCritical access hospitalDebbySelect Medical [facility]12 Lead [id number] 15:46:1012 LEAD EKG FOR [facility] Test Date: 4332-64-49Sxa Name: DORA JOSEPH Department: 5ECIPatient ID: [id number] Room: Gender: M Gem Setter: [id number]: 1970 Requested By: DARRION Cho Number: [id number] Reading MD: Rene Patterson MeasurementsIntervals [place] Rate: 61 P: 72PR: 152 QRS: 55QRSD: 106 T: 63QT: 398 QTc: 400 Interpretive StatementsSINUS RHYTHMPOSSIBLE RIGHT VENTRICULAR CONDUCTION DELAY [RSR (QR) IN V1/V2]Electronically Signed On 01-22-2022 8:30:45 CDT by Rene SadiAdAdaptedComparis Wcsudf39 Lead [id number] 15:46:1012 LEAD EKG FOR [facility] Test Date: 9427-56-81Xjd Name: DORA JOSEPH Department: 5ECIPatient ID: [id number] Room: Gender: M Gem Setter: [id number]: 1970 Requested By: DARRION Cho Number: [id number] Reading MD: Rene Patterson MeasurementsIntervals [place] Rate: 61 P: 72PR : 152 QRS: 55QRSD: 106 T: 63QT: 398 QTc: 400 Interpretive StatementsSINUS RHYTHMPOSSIBLE RIGHT VENTRICULAR CONDUCTION DELAY [RSR (QR) IN V1/V2]Electronically Signed On 01-22-2022 8:30:45 CDT by Rene BuzzDoescharisseWork For PieCompaEpuls12 Lead [id number] 15:46:1012 LEAD EKG FOR [facility] Test Date: 8991-29-44Ruu Name: DORA JOSEPH Department: 5ECIPatient ID: [id number] Room: Gender: M Gem Setter: [id number]: 1970 Requested By: DARRION Cho Number: [id number] Reading MD: Rene Patterson MeasurementsIntervals [place] Rate: 61 P: 72PR: 152 QRS: 55QRSD: 106 T: 63QT: 398 QTc: 400 Interpretive StatementsSINUS RHYTHMPOSSIBLE RIGHT VENTRICULAR CONDUCTION DELAY [RSR (QR) IN V1/V2]Electronically Signed On 01-22-2022 8:30:45 CDT by Rene BuzzDoesWork For PieCompaEpuls12 Lead [id number] 15:46:1012 LEAD EKG FOR [facility] Test Date: 9923-44-38Vyt Name: DORA PAEZRY Department: 5ECIPatient ID: [id number] Room: Gender: M Gem Setter: [id number]: 1970 Requested By: DARRION Cho Number: [id number] Reading MD: Rene Patterson MeasurementsIntervals [place] Rate: 61 P: 72PR: 152 QRS: 55QRSD: 106 T: 63QT: 398 QTc: 400 Interpretive StatementsSINUS RHYTHMPOSSIBLE RIGHT VENTR ICULAR CONDUCTION DELAY [RSR (QR) IN V1/V2]Electronically Signed On 01-22-2022 8:30:[address] [facility] HospitalWork For PieKadlec [facility] Center12 Lead [id number] 15:46:1012 LEAD EKG FOR [facility] Test Date: 1488-62-26Nhc Name: DORA JOSEPH Department: 5ECIPatient ID: [id number] Room: Gender: M Gem Setter: [id number]: 1970 Requested By: DARRION Cho Number: [id number] Reading MD: Rene Patterson MeasurementsIntervals [place] Rate: 61 P: 72PR: 152 QRS: 55QRSD: 106 T: 63QT: 398 QTc: 400 Interpretive StatementsSINUS RHYTHMPOSSIBLE RIGHT VENTRICULAR CONDUCTION DELAY [RSR (QR) IN V1/V2]Electronically Signed On 01-22-2022 8:30:[address] [facility] HospitalDebbyAdAdaptedKadlec [facility] Medical Center12 Lead [id number] 15:46:1012 LEAD EKG FOR [facility] Test Date: 0828-64-27Gba Name: DORA JOSEPH Department: 5ECIPatient ID: [id number] Room: Gender: M Gem Setter: [id number]: 1970 Requested By: DARRION Cho Number: [id number] Reading MD: Rene Patterson MeasurementsIntervals [place] Rate: 61 P: 72PR : 152 QRS: 55QRSD: 106 T: 63QT: 398 QTc: 400 Interpretive StatementsSINUS RHYTHMPOSSIBLE RIGHT VENTRICULAR CONDUCTION DELAY [RSR (QR) IN V1/V2]Electronically Signed On 01-22-2022 8:30:[address] [facility] HospitalPunch Through DesignMSHarris HealthHIV 1+2 Ab+HIV1 p24 Ag SerPl Ql [id number] 07:02:58 Test Item Value Reference Range Interpretation Comments HIV 1+2 Ab+HIV1 p24 Ag SerPl Ql IA NEGATIVE Negative (test code = 33535-7) [id number] 21:23:2512 LEAD EKG FOR [facility] Test Date: 1305-73-65Beg Name: DORA ELLSWORTH Department: 5520Patient ID: [id number] Room: 8L86Fflgvj: Gem Setter: : 1970 Requested By: KARIN BASSETT AOrder Number: [id number] Reading MD: Chiara Calles MeasurementsIntervals [place] Rate: 72 P: 90PR: 157 QRS: 87QRSD: 105 T: 90QT: 360 QTc: 384 Interpretive StatementsSINUS RHYTHMPOSSIBLE RIGHT VENTRICULAR CONDUCTION DELAY [RSR (QR) IN V1/V2]EARLY REPOLARIZATION [ST ELEVATION WITH NORMALLY INFLECTED T- WAVE]Electronically Signed On 01-17-2022 13:02:30 CDT by PurpluWadley Regional Medical CenterEdufii OrijdiCEB9783-02-02 21:23:2512 LEAD EKG FOR [facility] Test Date: 5098-47-18Fbb Name: DORA ELLSWORTH Department: 5520Patient ID: [id number] Room: 4C42Sawlcb: Gem Setter: : 1970 Requested By: JESSICA AOrder Number: [id number] Reading MD: Chiara Calles MeasurementsIntervals [place] Rate: 72 P: 90PR:157 QRS: 87QRSD: 105 T: 90QT: 360 QTc: 384 Interpretive StatementsSINUS RHYTHMPOSSIBLE RIGHT VENTRICULAR CONDUCTION DELAY [RSR (QR) IN V1/V2]EARLY REPOLARIZATION [ST ELEVATION WITH NORMALLY INFLECTED T- WAVE]Electronically Signed On 01-17-2022 13:02:30 CDT by [employer] IfowutPGE9676-14-36 21:23:2512 LEAD EKG FOR [facility] Test Date: 5126-53-36Onr Name: DORA ELLSWORTH Department: 5520Patient ID: [id number] Room: 2H34Zgfehd: M Gem Setter: : 1970 Requested By: KARIN BASSETT AOrder Number: [id number] Reading MD: Chiara Calles MeasurementsIntervals [place] Rate: 72 P: 90PR: 157 QRS: 87QRSD: 105 T: 90QT: 360 QTc: 384 Interpretive StatementsSINUS RHYTHMPOSSIBLE RIGHT VENTRICULAR CONDUCTION DELAY [RSR (QR) IN V1/V2]EARLY REPOLARIZATION [ST ELEVATION WITH NORMALLY INFLECTEDT- WAVE]Electronically Signed On 01-17-2022 13:02:[address] [facility] Medical CenterWhisbiNichole [place] [address]FsspdoDAH7246-03-77 21:23:2512 LEAD EKG FOR [facility] Test Date: 3960-63-94Hoh Name: DORA JOSEPH Department: 5520Patient ID: [id number] Room: 4C90Nwdber: M Gem Setter: : 1970 Requested By: KARIN BASSETT AOrder Number: [id number] Reading MD: Chiara Calles MeasurementsIntervals [place] Rate: 72 P: 90PR:157 QRS: 87QRSD: 105 T: 90QT: 360 QTc: 384 Interpretive StatementsSINUS RHYTHMPOSSIBLE RIGHT VENTRICULAR CONDUCTION DELAY [RSR (QR) IN V1/V2]EARLY REPOLARIZATION [ST ELEVATION WITH NORMALLY INFLECTED T- WAVE]Electronically Signed On 01-17-2022 13:02:30 CDT by PurpluDoctors HospitalXaxeofHMS4135-97-08 21:23:2512 LEAD EKG FOR [facility] Test Date: 5175-00-57Ouz Name: DORA ELLSWORTH Department: 5520Patient ID: [id number] Room: 4B17Zjwedq: M Gem Setter: : 1970 Requested By: KARIN BASSETT AOrder Number: [id number] Reading MD: Chiara Calles MeasurementsIntervals [place] Rate: 72 P: 90PR:157 QRS: 87QRSD: 105 T: 90QT: 360 QTc: 384 Interpretive StatementsSINUS RHYTHMPOSSIBLE RIGHT VENTRICULAR CONDUCTION DELAY [RSR (QR) IN V1/V2]EARLY REPOLARIZATION [ST ELEVATION WITH NORMALLY INFLECTED T- WAVE]Electronically Signed On 01-17-2022 13:02:30 CDT by [place] 85941022-05-26 21:23:2512 LEAD EKG FOR [facility] Test Date: 0153-90-10Mrv Name: DORA JOSEPH Department: 5520Patient ID: [id number] Room: 2D94Fheumt: M Gem Setter: : 1970 Requested By: KARIN BASSETT AOrder Number: [id number] Reading MD: Chiara Calles MeasurementsIntervals [place] Rate: 72 P: 90PR:157 QRS: 87QRSD: 105 T: 90QT: 360 QTc: 384 Interpretive StatementsSINUS RHYTHMPOSSIBLE RIGHT VENTRICULAR CONDUCTION DELAY [RSR (QR) IN V1/V2]EARLY REPOLARIZATION [ST ELEVATION WITH NORMALLY INFLECTED T- WAVE]Electronically Signed On 01-17-2022 13:02:30 CDT by [place] [id number] 21:23:2512 LEAD EKG FOR [facility] Test Date: 0212-80-90Vic Name: DORA PAEZRY Department: 5520Patient ID: [id number] Room: 4Y86Qhjphn: M Gem Setter: : 1970 Requested By: KARIN BASSETT AOrder Number: [id number] Reading MD: Chiara Calles MeasurementsIntervals [place] Rate: 72 P: 90PR:157 QRS: 87QRSD: 105 T: 90QT: 360 QTc: 384 Interpretive StatementsSINUS RHYTHMPOSSIBLE RIGHT VENTRICULAR CONDUCTION DELAY [RSR (QR) IN V1/V2]EARLY REPOLARIZATION [ST ELEVATION WITH NORMALLY INFLECTED T- WAVE]Electronically Signed On 01-17-2022 13:02:30 CDT by Travis [place] [id number] 21:23:2512 LEAD EKG FOR [facility] Test Date: 8465-79-48Awu Name: DORA PAEZRY Department: 5520Patient ID: [id number] Room: 4J48Rnujbf: M Gem Setter: : 1970 Requested By: KARIN BASSETT AOrder Number: [id number] Reading MD: Chiara Calles MeasurementsIntervals [place] Rate: 72 P: 90PR: 157 QRS: 87QRSD: 105 T: 90QT: 360 QTc: 384 Interpretive StatementsSINUS RHYTHMPOSSIBLE RIGHT VENTRICULAR CONDUCTION DELAY [RSR (QR) IN V1/V2]EARLY REPOLARIZATION [ST ELEVATION WITH NORMALLY INFLECTED T- WAVE]Electronically Signed On 01-17-2022 13:02:30 CDT by [facility]Process[facility] [place] [id number] 21:23:2512 LEAD EKG FOR [facility] Test Date: 0397-69-63Tis Name: DORA JOSEPH Department: 5520Patient ID: [id number] Room: 9M62Xqjgpq: M Gem Setter: : 1970 Requested By: KARIN BASSETT AOrder Number: [id number] Reading MD: Chiara Calles MeasurementsIntervals [place] Rate: 72 P: 90PR: 157 QRS: 87QRSD: 105 T: 90QT: 360 QTc: 384 Interpretive StatementsSINUS RHYTHMPOSSIBLE RIGHT VENTRICULAR CONDUCTION DELAY [RSR (QR) IN V1/V2]EARLY REPOLARIZATION [ST ELEVATION WITH NORMALLY INFLECTED T-W AVE]Electronically Signed On 01-17-2022 13:02:[address] [facility]Wh[facility]biDo[facility] HospitalJbejguKTE9872-56-89 21:23:2512 LEAD EKG FOR [facility] Test Date: 3280-06-56Tcy Name: DORA JOSEPH Department: 5520Patient ID: [id number] Room: 8V60Ivsqqi: Gem Setter: : 1970 Requested By: JESSICA AOrder Number: [id number] Reading MD: Chiara Calles MeasurementsIntervals [place] Rate: 72 P: 90PR:157 QRS: 87QRSD: 105 T: 90QT: 360 QTc: 384 Interpretive StatementsSINUS RHYTHMPOSSIBLE RIGHT VENTRICULAR CONDUCTION DELAY [RSR (QR) IN V1/V2]EARLY REPOLARIZATION [ST ELEVATION WITH NORMALLY INFLECTED T- WAVE]Electronically Signed On 01-17-2022 13:02:30 CDT [facility] [place] [id number] 21:23:2512 LEAD EKG FOR [facility] Test Date: 6933-30-85Hbv Name: DORA JOSEPH Department: 5520Patient ID: [id number] Room: 3M52Ewfmuh: M Gem Setter: : 1970 Requested By: KARIN BASSETT AOrder Number: [id number] Reading MD: Chiara Calles MeasurementsIntervals [place] Rate: 72 P: 90PR: 157 QRS: 87QRSD: 105 T: 90QT: 360 QTc: 384 Interpretive StatementsSINUS RHYTHMPOSSIBLE RIGHT VENTRICULAR CONDUCTION DELAY [RSR (QR) IN V1/V2]EARLY REPOLARIZATION [ST ELEVATION WITH NORMALLY INFLECTED T-W AVE]Electronically Signed On 01-17-2022 13:02:30 CDT by [facility] [id number] 21:23:2512 LEAD EKG FOR [facility] Test Date: 8635-82-19Ivz Name: DORA JOSEPH Department: 5520Patient ID: [id number] Room: 7U71Lnoawv: M Gem Setter: : 1970 Requested By: AKRIN BASSETT AOrder Number: [id number] Reading MD: Chiara Calles MeasurementsIntervals [place] Rate: 72 P: 90PR: 157 QRS: 87QRSD: 105 T: 90QT: 360 QTc: 384 Interpretive StatementsSINUS RHYTHMPOSSIBLE RIGHT VENTRICULAR CONDUCTION DELAY [RSR (QR) IN V1/V2]EARLY REPOLARIZATION [ST ELEVATION WITH NORMALLY INFLECTED T- WAVE]Electronically Signed On 01-17-2022 13:02:[address] [facility] CrowdProcessN[place] [id number] 21:23:2512 LEAD EKG FOR [facility] Test Date: 3525-55-22Jcl Name: DORA JOSEPH Department: 5520Patient ID: [id number] Room: 7K24Yhkmgr: M Gem Setter: : 1970 Requested By: KARIN BASSETT AOrder Number: [id number] Reading MD: Chiara Calles MeasurementsIntervals [place] Rate: 72 P: 90PR:157 QRS: 87QRSD: 105 T: 90QT: 360 QTc: 384 Interpretive StatementsSINUS RHYTHMPOSSIBLE RIGHT VENTRICULAR CONDUCTION DELAY [RSR (QR) IN V1/V2]EARLY REPOLARIZATION [ST ELEVATION WITH NORMALLY INFLECTED T- WAVE]Electronically Signed On 01-17-2022 13:02:30 CDT [facility] [address]JipnrvRKB0036-69-72 21:23:2512 LEAD EKG FOR [facility] Test Date: 5857-75-44Krp Name: DORA JOSEPH Department: 5520Patient ID: [id number] Room: 6K27Jnvfum: M Gem Setter: : 1970 Requested By: KARIN Reevesder Number: [id number] Reading MD: Chiara Calles MeasurementsIntervals [place] Rate: 72 P: 90PR:157 QRS: 87QRSD: 105 T: 90QT: 360 QTc: 384 Interpretive StatementsSINUS RHYTHMPOSSIBLE RIGHT VENTRICULAR CONDUCTION DELAY [RSR (QR) IN V1/V2]EARLY REPOLARIZATION [ST ELEVATION WITH NORMALLY INFLECTED T- WAVE]Electronically Signed On 01-17-2022 13:02:[address] [facility]dProcessN[place] [id number] 21:23:2512 LEAD EKG FOR [facility] Test Date: 4688-63-93Eiq Name: DORA JOSEPH Department: 5520Patient ID: [id number] Room: 9O32Deiefz: M Gem Setter: : 1970 Requested By: KARIN Ryan Number: [id number] Reading MD: Chiara Calles MeasurementsIntervals [place] Rate: 72 P: 90PR:157 QRS: 87QRSD: 105 T: 90QT: 360 QTc: 384 Interpretive StatementsSINUS RHYTHMPOSSIBLE RIGHT VENTRICULAR CONDUCTION DELAY [RSR (QR) IN V1/V2]EARLY REPOLARIZATION [ST ELEVATION WITH NORMALLY INFLECTED T- WAVE]Electronically Signed On 01-17-2022 13:02:30 CDT [facility] [address]AnfunwDOB9366-57-30 21:23:2512 LEAD EKG FOR [facility] Test Date: 6260-67-96Uwn Name: DORA JOSEPH Department: 5520Patient ID: [id number] Room: 2E79Kdjexo: M Gem Setter: : 1970 Requested By: JESSICA Reevesder Number: [id number] Reading MD: Chiara Calles MeasurementsIntervals [place] Rate: 72 P: 90PR: 157 QRS: 87QRSD: 105 T: 90QT: 360 QTc: 384 Interpretive StatementsSINUS RHYTHMPOSSIBLE RIGHT VENTRICULAR CONDUCTION DELAY [RSR (QR) IN V1/V2]EARLY REPOLARIZATION [ST ELEVATION WITH NORMALLY INFLECTEDT- WAVE]Electronically Signed On 01-17-2022 13:02:[address] [facility] CrowdProcessAiea IckiotWJQ7027-63-40 21:23:2512 LEAD EKG FOR [facility] Test Date: 0482-99-69Iac Name: DORA ELLSWORTH Department: 5520Patient ID: [id number] Room: 8J77Ebgfkz: M Gem Setter: : 1970 Requested By: KARIN BASSETT AOrder Number: [id number] Reading MD: Chiara Calles MeasurementsIntervals [place] Rate: 72 P: 90PR:157 QRS: 87QRSD: 105 T: 90QT: 360 QTc: 384 Interpretive StatementsSINUS RHYTHMPOSSIBLE RIGHT VENTRICULAR CONDUCTION DELAY [RSR (QR) IN V1/V2]EARLY REPOLARIZATION [ST ELEVATION WITH NORMALLY INFLECTED T- WAVE]Electronically Signed On 01-17-2022 13:02:[address] [facility]ro[facility] CrowdProcessWad[facility] Medical CenterLeafTrjfozJFX9608-53-01 21:23:2512 LEAD EKG FOR [facility] Test Date: 5826-78-18Gfv Name: DORA ELLSWORTH Department: 5520Patient ID: [id number] Room: 2P03Affwwy: M Gem Setter: : 1970 Requested By: KARIN BASSETT AOrder Number: [id number] Reading MD: Chiara Calles MeasurementsIntervals [place] Rate: 72 P: 90PR: 157 QRS: 87QRSD: 105 T: 90QT: 360 QTc: 384 Interpretive StatementsSINUS RHYTHMPOSSIBLE RIGHT VENTRICULAR CONDUCTION DELAY [RSR (QR) IN V1/V2]EARLY REPOLARIZATION [ST ELEVATION WITH NORMALLY INFLECTED T- WAVE]Electronically Signed On 01-17-2022 13:02:30 CDT [facility] CrowdProcessHarMulti[facility] HospitalNosdemXGU0296-28-73 21:23:2512 LEAD EKG FOR [facility] Test Date: 2019-55-89Gio Name: DORA JOSEPH Department: 5520Patient ID: [id number] Room: 3Y28Sdhnlh: M Gem Setter: : 1970 Requested By: KARIN BASSETT AOrder Number: [id number] Reading MD: Chiara Calles MeasurementsIntervals [place] Rate: 72 P: 90PR: 157 QRS: 87QRSD: 105 T: 90QT: 360 QTc: 384 Interpretive StatementsSINUS RHYTHMPOSSIBLE RIGHT VENTRICULAR CONDUCTION DELAY [RSR (QR) IN V1/V2]EARLY REPOLARIZATION [ST ELEVATION WITH NORMALLY INFLECTED T- WAVE]Electronically Signed On 01-17-2022 13:02:30 CDT by [facility] [id number] 21:23:2512 LEAD EKG FOR [facility] Test Date: 8041-75-17Iej Name: DORA JOSEPH Department: 5520Patient ID: [id number] Room: 7U36Kfpczq: M Gem Setter: : 1970 Requested By: KARIN BASSETT AOrder Number: [id number] Reading MD: Chiara Calles MeasurementsIntervals [place] Rate: 72 P: 90PR:157 QRS: 87QRSD: 105 T: 90QT: 360 QTc: 384 Interpretive StatementsSINUS RHYTHMPOSSIBLE RIGHT VENTRICULAR CONDUCTION DELAY [RSR (QR) IN V1/V2]EARLY REPOLARIZATION [ST ELEVATION WITH NORMALLY INFLECTED T- WAVE]Electronically Signed On 01-17-2022 13:02:30 CDT by [facility]ARS-[facility] ORF1ab Resp Ql OLENA+rxhcf0710-21-12 19:57:49 Test Item Value Reference Range Interpretation Comments Hospitalized? (test No code = 98386-4) ICU? (test code = No 00728-9) Symptomatic as No defined by CDC? (test code = 47806-0) Employed in No Healthcare? (test code = 50353-5) Resident in a No congregate care setting (including nursing homes, residential care for people with intellectual and developmental disabilities, psychiatric treatment facilities, group homes, board and care homes, homeless retirement, foster care or other): (test code = 60508-3) SARS-CoV-2 ORF1ab NOT DETECTED Not Detected INTERPRETA TION: No Resp Ql OLENA+probe detectable levels of (test code = SARS-CoV-2 44094-2) Coronavirus (COVID-19) were present in this patient's [...] SARS-CoV-2 mole cular diagnostic assa y utilizes Assistant Editor Mediated Amplification ( TMA) technology to r apidly detect the SARS -CoV-2 (COVID-19) viru s from respiratory adriana ples. In accordance with\\XC2A0\\the FDA's guidance docume nt "Policy for Diagnostic Test s for Coronavirus Disease-2019 du [facility] the [facility]", ginger s test was developed, and its performance characteristics were verified by the [facility] molecular diagn ostics laboratory and is authorized for clinical diagno stic use. \\XC2A0\\Ginger s laboratory is certified under the Clinical Labora tory Improvement Amendments (CLI A) as qualified to pe rform high complexity clinical labora tory testing. [facility] CREATININE POC docked [id number] 13:57:55 Test Item Value Reference Range Interpretation Comments Creatinine POC (test 2.4 mg/dL 0.6-1.3 H Physici an Notified code = 39565673) eGFR (test code = 30 See_Comment L [Automate d message] 37401767) The system [employer] generated this result transmit dain reference range : >=90 mL/min/1.7 3 m2. The reference r meredith was not used to interpret this result as normal/abnormal . eGFR If Am (test 35 See_Comment L [A utomated message] code = 56653325) The system which generated this result transmit dain reference range : >=90 mL/min/1.7 3 m2. The reference r meredith was not used to interpret this result as normal/abnormal . Lab Interpretation (test Abnormal code = 06018-9) [facility] [id number] 13:57:55 Test Item Value Reference Range Interpretation Comments Creatinine POC (test 2.4 mg/dL 0.6-1.3 H Physici an Notified code = 91666905) eGFR (test code = 30 See_Comment L [Automate d message] 67485292) The system [employer] h generated this result transmit dain reference range : >=90 mL/min/1.7 3 m2. The reference r meredith was not used to interpret this result as normal/abnormal . eGFR If Am (test 35 See_Comment L [A utomated message] code = 59185720) The system which generated this result transmit dain reference range : >=90 mL/min/1.7 3 m2. The reference r meredith was not used to interpret this result as normal/abnormal . Lab Interpretation (test Abnormal code = 23660-0) [facility] CREATININE POC docked [id number] 13:57:55 Test Item Value Reference Range Interpretation Comments Creatinine POC (test 2.4 mg/dL 0.6-1.3 H Physici an Notified code = 40716861) eGFR If non- Am 30 See_Comment L [Aut omated message] (test code = 04481424) The s ystem which generated this result transmit dain reference range : >=90 mL/min/1.7 3 m2. The reference r meredith was not used to interpret this result as normal/abnormal . eGFR If Am (test 35 See_Comment L [A utomated message] code = 18945751) The system which generated this result transmit dain reference range : >=90 mL/min/1.7 3 m2. The reference r meredith was not used to interpret this result as normal/abnormal . Lab Interpretation (test Abnormal code = 94018-4) [facility] CREATININE POC docked [id number] 13:57:55 Test Item Value Reference Range Interpretation Comments Creatinine POC (test 2.4 mg/dL 0.6-1.3 H Physici an Notified code = 06402714) eGFR If non- Am 30 See_Comment L [Aut omated message] (test code = 59003214) The s ystem which generated this result transmit dain reference range : >=90 mL/min/1.7 3 m2. The reference r meredith was not used to interpret this result as normal/abnormal . eGFR If Am (test 35 See_Comment L [A utomated message] code = 75225279) The system which generated this result transmit dain reference range : >=90 mL/min/1.7 3 m2. The reference r meredith was not used to interpret this result as normal/abnormal . Lab Interpretation (test Abnormal code = 63180-2) [facility] CREATININE POC docked [id number] 13:57:55 Test Item Value Reference Range Interpretation Comments Creatinine POC (test 2.4 mg/dL 0.6-1.3 H Physici an Notified code = 49664624) eGFR If non- Am 30 See_Comment L [Aut omated message] (test code = 66273106) The s ystem which generated this result transmit dain reference range : >=90 mL/min/1.7 3 m2. The reference r meredith was not used to interpret this result as normal/abnormal . eGFR If Am (test 35 See_Comment L [A utomated message] code = 58425430) The system which generated this result transmit dain reference range : >=90 mL/min/1.7 3 m2. The reference r meredith was not used to interpret this result as normal/abnormal . Lab Interpretation (test Abnormal code = 19414-9) [facility] CREATININE POC docked [id number] 13:57:55 Test Item Value Reference Range Interpretation Comments Creatinine POC (test 2.4 mg/dL 0.6-1.3 H Physici an Notified code = 27710453) eGFR If non- Am 30 See_Comment L [Aut omated message] (test code = 29048177) The s ystem which generated this result transmit dain reference range : >=90 mL/min/1.7 3 m2. The reference r meredith was not used to interpret this result as normal/abnormal . eGFR If Am (test 35 See_Comment L [A utomated message] code = 14936715) The system which generated this result transmit dain reference range : >=90 mL/min/1.7 3 m2. The reference r meredith was not used to interpret this result as normal/abnormal . Lab Interpretation (test Abnormal code = 26480-8) [facility] [id number] 13:57:55 Test Item Value Reference Range Interpretation Comments Creatinine POC (test 2.4 mg/dL 0.6-1.3 H Physici an Notified code = 26047700) eGFR If non- Am 30 See_Comment L [Aut omated message] (test code = 09410308) The s ystem which generated this result transmit dain reference range : >=90 mL/min/1.7 3 m2. The reference r meredith was not used to interpret this result as normal/abnormal . eGFR If Am (test 35 See_Comment L [A utomated message] code = 03241083) The system which generated this result transmit dain reference range : >=90 mL/min/1.7 3 m2. The reference r meredith was not used to interpret this result as normal/abnormal . Lab Interpretation (test Abnormal code = 50696-0) [facility] [id number] 13:57:55 Test Item Value Reference Range Interpretation Comments Creatinine POC (test 2.4 mg/dL 0.6-1.3 H Physici an Notified code = 69665183) eGFR If non- Am 30 See_Comment L [Aut omated message] (test code = 36669951) The s ystem which generated this result transmit dain reference range : >=90 mL/min/1.7 3 m2. The reference r meredith was not used to interpret this result as normal/abnormal . eGFR If Am (test 35 See_Comment L [A utomated message] code = 45998362) The system which generated this result transmit dain reference range : >=90 mL/min/1.7 3 m2. The reference r meredith was not used to interpret this result as normal/abnormal . Lab Interpretation (test Abnormal code = 54764-7) [facility] [id number] 13:57:55 Test Item Value Reference Range Interpretation Comments Creatinine POC (test 2.4 mg/dL 0.6-1.3 H Physici an Notified code = 36182954) eGFR If non- Am 30 See_Comment L [Aut omated message] (test code = 41339988) The s ystem which generated this result transmit dain reference range : >=90 mL/min/1.7 3 m2. The reference r meredith was not used to interpret this result as normal/abnormal . eGFR If Am (test 35 See_Comment L [A utomated message] code = 66425228) The system which generated this result transmit dain reference range : >=90 mL/min/1.7 3 m2. The reference r meredith was not used to interpret this result as normal/abnormal . Lab Interpretation (test Abnormal code = 29925-8) [facility] CREATININE POC docked [id number] 13:57:55 Test Item Value Reference Range Interpretation Comments Creatinine POC (test 2.4 mg/dL 0.6-1.3 H Physici an Notified code = 06993143) eGFR If non- Am 30 See_Comment L [Aut omated message] (test code = 59342251) The s ystem which generated this result transmit dain reference range : >=90 mL/min/1.7 3 m2. The reference r meredith was not used to interpret this result as normal/abnormal . eGFR If Am (test 35 See_Comment L [A utomated message] code = 35697394) The system which generated this result transmit dain reference range : >=90 mL/min/1.7 3 m2. The reference r meredith was not used to interpret this result as normal/abnormal . Lab Interpretation (test Abnormal code = 77983-4) [facility] CREATININE POC docked [id number] 13:57:55 Test Item Value Reference Range Interpretation Comments Creatinine POC (test 2.4 mg/dL 0.6-1.3 H Physici an Notified code = 71322089) eGFR If non- Am 30 See_Comment L [Aut omated message] (test code = 79423659) The s ystem which generated this result transmit dain reference range : >=90 mL/min/1.7 3 m2. The reference r meredith was not used to interpret this result as normal/abnormal . eGFR If Am (test 35 See_Comment L [A utomated message] code = 55700792) The system which generated this result transmit dain reference range : >=90 mL/min/1.7 3 m2. The reference r meredith was not used to interpret this result as normal/abnormal . Lab Interpretation (test Abnormal code = 02680-0) [facility] CREATININE POC docked [id number] 13:57:55 Test Item Value Reference Range Interpretation Comments Creatinine POC (test 2.4 mg/dL 0.6-1.3 H Physici an Notified code = 18380436) eGFR If non- Am 30 See_Comment L [Aut omated message] (test code = 48583238) The s ystem which generated this result transmit dain reference range : >=90 mL/min/1.7 3 m2. The reference r meredith was not used to interpret this result as normal/abnormal . eGFR If Am (test 35 See_Comment L [A utomated message] code = 16469683) The system which generated this result transmit dain reference range : >=90 mL/min/1.7 3 m2. The reference r meredith was not used to interpret this result as normal/abnormal . Lab Interpretation (test Abnormal code = 43858-8) [facility] CREATININE POC docked [id number] 13:57:55 Test Item Value Reference Range Interpretation Comments Creatinine POC (test 2.4 mg/dL 0.6-1.3 H Physici an Notified code = 12277248) eGFR If non- Am 30 See_Comment L [Aut omated message] (test code = 48096111) The s ystem which generated this result transmit dain reference range : >=90 mL/min/1.7 3 m2. The reference r meredith was not used to interpret this result as normal/abnormal . eGFR If Am (test 35 See_Comment L [A utomated message] code = 98138447) The system which generated this result transmit dain reference range : >=90 mL/min/1.7 3 m2. The reference r meredith was not used to interpret this result as normal/abnormal . Lab Interpretation (test Abnormal code = 99062-0) [facility] [id number] 13:57:55 Test Item Value Reference Range Interpretation Comments Creatinine POC (test 2.4 mg/dL 0.6-1.3 H Physici an Notified code = 83485439) eGFR If non- Am 30 See_Comment L [Aut omated message] (test code = 69150668) The s ystem which generated this result transmit dain reference range : >=90 mL/min/1.7 3 m2. The reference r meredith was not used to interpret this result as normal/abnormal . eGFR If Am (test 35 See_Comment L [A utomated message] code = 18334830) The system which generated this result transmit dain reference range : >=90 mL/min/1.7 3 m2. The reference r meredith was not used to interpret this result as normal/abnormal . Lab Interpretation (test Abnormal code = 24776-8) [facility] CREATININE POC docked [id number] 13:57:55 Test Item Value Reference Range Interpretation Comments Creatinine POC (test 2.4 mg/dL 0.6-1.3 H Physici an Notified code = 10364042) eGFR If non- Am 30 See_Comment L [Aut omated message] (test code = 57279366) The s ystem which generated this result transmit dain reference range : >=90 mL/min/1.7 3 m2. The reference r meredith was not used to interpret this result as normal/abnormal . eGFR If Am (test 35 See_Comment L [A utomated message] code = 28270433) The system which generated this result transmit dain reference range : >=90 mL/min/1.7 3 m2. The reference r meredith was not used to interpret this result as normal/abnormal . Lab Interpretation (test Abnormal code = 94462-1) [facility] [id number] 13:57:55 Test Item Value Reference Range Interpretation Comments Creatinine POC (test 2.4 mg/dL 0.6-1.3 H Physici an Notified code = 98967130) eGFR If non- Am 30 See_Comment L [Aut omated message] (test code = 98228571) The s ystem which generated this result transmit dain reference range : >=90 mL/min/1.7 3 m2. The reference r meredith was not used to interpret this result as normal/abnormal . eGFR If Am (test 35 See_Comment L [A utomated message] code = 53495920) The system which generated this result transmit dain reference range : >=90 mL/min/1.7 3 m2. The reference r meredith was not used to interpret this result as normal/abnormal . Lab Interpretation (test Abnormal code = 35585-7) [facility] CREATININE POC docked [id number] 13:57:55 Test Item Value Reference Range Interpretation Comments Creatinine POC (test 2.4 mg/dL 0.6-1.3 H Physici an Notified code = 56794879) eGFR If non- Am 30 See_Comment L [Aut omated message] (test code = 58067227) The s ystem which generated this result transmit dain reference range : >=90 mL/min/1.7 3 m2. The reference r meredith was not used to interpret this result as normal/abnormal . eGFR If Am (test 35 See_Comment L [A utomated message] code = 59360273) The system which generated this result transmit dain reference range : >=90 mL/min/1.7 3 m2. The reference r meredith was not used to interpret this result as normal/abnormal . Lab Interpretation (test Abnormal code = 80851-9) [facility] CREATININE POC docked [id number] 13:57:55 Test Item Value Reference Range Interpretation Comments Creatinine POC (test 2.4 mg/dL 0.6-1.3 H Physici an Notified code = 34020154) eGFR (test code = 30 See_Comment L [Automate d message] 22673853) The system [employer] h generated this result transmit dain reference range : >=90 mL/min/1.7 3 m2. The reference r meredith was not used to interpret this result as normal/abnormal . eGFR If Am (test 35 See_Comment L [A utomated message] code = 88752365) The system which generated this result transmit dain reference range : >=90 mL/min/1.7 3 m2. The reference r meredith was not used to interpret this result as normal/abnormal . Lab Interpretation (test Abnormal code = 37966-2) [facility] CREATININE POC docked [id number] 13:57:55 Test Item Value Reference Range Interpretation Comments Creatinine POC (test 2.4 mg/dL 0.6-1.3 H Physici an Notified code = 97121826) eGFR (test code = 30 See_Comment L [Automate d message] 40829209) The system [employer] generated this result transmit dain reference range : >=90 mL/min/1.7 3 m2. The reference r meredith was not used to interpret this result as normal/abnormal . eGFR If Am (test 35 See_Comment L [A utomated message] code = 15832341) The system which generated this result transmit dain reference range : >=90 mL/min/1.7 3 m2. The reference r meredith was not used to interpret this result as normal/abnormal . Lab Interpretation (test Abnormal code = 22465-7) [facility] CREATININE POC docked [id number] 13:57:55 Test Item Value Reference Range Interpretation Comments Creatinine POC (test 2.4 mg/dL 0.6-1.3 H Physici an Notified code = 54896296) eGFR (test code = 30 See_Comment L [Automate d message] 78432966) The system [employer] generated this result transmit dain reference range : >=90 mL/min/1.7 3 m2. The reference r meredith was not used to interpret this result as normal/abnormal . eGFR If Am (test 35 See_Comment L [A utomated message] code = 00463216) The system which generated this result transmit dain reference range : >=90 mL/min/1.7 3 m2. The reference r meredith was not used to interpret this result as normal/abnormal . Lab Interpretation (test Abnormal code = 83565-1) [facility] BMP POC docked [id number] 13:48:46 Test Item Value Reference Range Interpretation Comments Sodium POC (test code = 126 mmol/L 136-145 L 56659864) Potassium POC (test code 4.4 mmol/L 3.5-5.1 = 23580608) Chloride POC (test code 100 mmol/L 98-107 = 84338806) TCO2 POC (test code = 17 mmol/L 21-32 L Physic rachel Notified 37721530) Urea Nitrogen POC (test 36 mg/dL 7-18 H code = 54740348) Glucose POC (test code = 114 mg/dL 74-106 H 62559527) Hemoglobin POC (test 11.9 g/dL 12-16 L code = 38500317) Hematocrit POC (test 35.0 % 37.0-47.0 L code = 04864201) Lab Interpretation (test Abnormal code = 92084-8) [facility] POC docked [id number] 13:48:46 Test Item Value Reference Range Interpretation Comments Sodium POC (test code = 126 mmol/L 136-145 L 54476370) Potassium POC (test code 4.4 mmol/L 3.5-5.1 = 52861467) Chloride POC (test code 100 mmol/L 98-107 = 82140454) TCO2 POC (test code = 17 mmol/L 21-32 L Physic rachel Notified 35045599) Urea Nitrogen POC (test 36 mg/dL 7-18 H code = 52939737) Glucose POC (test code = 114 mg/dL 74-106 H 18624145) Hemoglobin POC (test 11.9 g/dL 12-16 L code = 82396593) Hematocrit POC (test 35.0 % 37.0-47.0 L code = 50636940) Lab Interpretation (test Abnormal code = 97871-2) [facility] POC docked [id number] 13:48:46 Test Item Value Reference Range Interpretation Comments Sodium POC (test code = 126 mmol/L 136-145 L 35388336) Potassium POC (test code 4.4 mmol/L 3.5-5.1 = 73115234) Chloride POC (test code 100 mmol/L 98-107 = 08976913) TCO2 POC (test code = 17 mmol/L 21-32 L Physic rachel Notified 83654945) Urea Nitrogen POC (test 36 mg/dL 7-18 H code = 27664245) Glucose POC (test code = 114 mg/dL 74-106 H 22071048) Hemoglobin POC (test 11.9 g/dL 12-16 L code = 61048178) Hematocrit POC (test 35.0 % 37.0-47.0 L code = 26520642) Lab Interpretation (test Abnormal code = 05356-5) [facility] POC docked [id number] 13:48:46 Test Item Value Reference Range Interpretation Comments Sodium POC (test code = 126 mmol/L 136-145 L 17495352) Potassium POC (test code 4.4 mmol/L 3.5-5.1 = 18149485) Chloride POC (test code 100 mmol/L 98-107 = 42579315) TCO2 POC (test code = 17 mmol/L 21-32 L Physic rachel Notified 41599755) Urea Nitrogen POC (test 36 mg/dL 7-18 H code = 99264332) Glucose POC (test code = 114 mg/dL 74-106 H 24309218) Hemoglobin POC (test 11.9 g/dL 12-16 L code = 78987405) Hematocrit POC (test 35.0 % 37.0-47.0 L code = 07859076) Lab Interpretation (test Abnormal code = 07836-1) [facility] POC docked [id number] 13:48:46 Test Item Value Reference Range Interpretation Comments Sodium POC (test code = 126 mmol/L 136-145 L 05548360) Potassium POC (test code 4.4 mmol/L 3.5-5.1 = 20666977) Chloride POC (test code 100 mmol/L 98-107 = 61235667) TCO2 POC (test code = 17 mmol/L 21-32 L Physic rachel Notified 88618467) Urea Nitrogen POC (test 36 mg/dL 7-18 H code = 78185184) Glucose POC (test code = 114 mg/dL 74-106 H 93229742) Hemoglobin POC (test 11.9 g/dL 12-16 L code = 92836276) Hematocrit POC (test 35.0 % 37.0-47.0 L code = 11197989) Lab Interpretation (test Abnormal code = 16515-7) [facility] POC docked [id number] 13:48:46 Test Item Value Reference Range Interpretation Comments Sodium POC (test code = 126 mmol/L 136-145 L 02647883) Potassium POC (test code 4.4 mmol/L 3.5-5.1 = 27972235) Chloride POC (test code 100 mmol/L 98-107 = 10589592) TCO2 POC (test code = 17 mmol/L 21-32 L Physic rachel Notified 36030906) Urea Nitrogen POC (test 36 mg/dL 7-18 H code = 86866587) Glucose POC (test code = 114 mg/dL 74-106 H 46019381) Hemoglobin POC (test 11.9 g/dL 12-16 L code = 74017087) Hematocrit POC (test 35.0 % 37.0-47.0 L code = 15854310) Lab Interpretation (test Abnormal code = 80561-0) [facility] POC docked [id number] 13:48:46 Test Item Value Reference Range Interpretation Comments Sodium POC (test code = 126 mmol/L 136-145 L 66210731) Potassium POC (test code 4.4 mmol/L 3.5-5.1 = 96971479) Chloride POC (test code 100 mmol/L 98-107 = 02406228) TCO2 POC (test code = 17 mmol/L 21-32 L Physic rachel Notified 38857435) Urea Nitrogen POC (test 36 mg/dL 7-18 H code = 98593008) Glucose POC (test code = 114 mg/dL 74-106 H 52590161) Hemoglobin POC (test 11.9 g/dL 12-16 L code = 14008739) Hematocrit POC (test 35.0 % 37.0-47.0 L code = 99294885) Lab Interpretation (test Abnormal code = 27306-9) [facility] BMP POC docked [id number] 13:48:46 Test Item Value Reference Range Interpretation Comments Sodium POC (test code = 126 mmol/L 136-145 L 11242973) Potassium POC (test code 4.4 mmol/L 3.5-5.1 = 31444751) Chloride POC (test code 100 mmol/L 98-107 = 07874895) TCO2 POC (test code = 17 mmol/L 21-32 L Physic rachel Notified 59932463) Urea Nitrogen POC (test 36 mg/dL 7-18 H code = 54840360) Glucose POC (test code = 114 mg/dL 74-106 H 20944308) Hemoglobin POC (test 11.9 g/dL 12-16 L code = 61904488) Hematocrit POC (test 35.0 % 37.0-47.0 L code = 38493309) Lab Interpretation (test Abnormal code = 92989-7) [facility] POC docked [id number] 13:48:46 Test Item Value Reference Range Interpretation Comments Sodium POC (test code = 126 mmol/L 136-145 L 75636257) Potassium POC (test code 4.4 mmol/L 3.5-5.1 = 82380578) Chloride POC (test code 100 mmol/L 98-107 = 62982926) TCO2 POC (test code = 17 mmol/L 21-32 L Physic rachel Notified 48905542) Urea Nitrogen POC (test 36 mg/dL 7-18 H code = 17463808) Glucose POC (test code = 114 mg/dL 74-106 H 33765860) Hemoglobin POC (test 11.9 g/dL 12-16 L code = 16938344) Hematocrit POC (test 35.0 % 37.0-47.0 L code = 51926689) Lab Interpretation (test Abnormal code = 39400-6) [facility] POC docked [id number] 13:48:46 Test Item Value Reference Range Interpretation Comments Sodium POC (test code = 126 mmol/L 136-145 L 73966716) Potassium POC (test code 4.4 mmol/L 3.5-5.1 = 83516597) Chloride POC (test code 100 mmol/L 98-107 = 50679637) TCO2 POC (test code = 17 mmol/L 21-32 L Physic rachel Notified 80730068) Urea Nitrogen POC (test 36 mg/dL 7-18 H code = 21722634) Glucose POC (test code = 114 mg/dL 74-106 H 90269158) Hemoglobin POC (test 11.9 g/dL 12-16 L code = 46539350) Hematocrit POC (test 35.0 % 37.0-47.0 L code = 00572194) Lab Interpretation (test Abnormal code = 62512-5) [facility] POC docked [id number] 13:48:46 Test Item Value Reference Range Interpretation Comments Sodium POC (test code = 126 mmol/L 136-145 L 34179942) Potassium POC (test code 4.4 mmol/L 3.5-5.1 = 54886135) Chloride POC (test code 100 mmol/L 98-107 = 20440850) TCO2 POC (test code = 17 mmol/L 21-32 L Physic rachel Notified 78367050) Urea Nitrogen POC (test 36 mg/dL 7-18 H code = 14436702) Glucose POC (test code = 114 mg/dL 74-106 H 09994515) Hemoglobin POC (test 11.9 g/dL 12-16 L code = 88343372) Hematocrit POC (test 35.0 % 37.0-47.0 L code = 80120451) Lab Interpretation (test Abnormal code = 88872-4) [facility] POC docked [id number] 13:48:46 Test Item Value Reference Range Interpretation Comments Sodium POC (test code = 126 mmol/L 136-145 L 75026347) Potassium POC (test code 4.4 mmol/L 3.5-5.1 = 89403531) Chloride POC (test code 100 mmol/L 98-107 = 39732180) TCO2 POC (test code = 17 mmol/L 21-32 L Physic rachel Notified 60710443) Urea Nitrogen POC (test 36 mg/dL 7-18 H code = 99963124) Glucose POC (test code = 114 mg/dL 74-106 H 83463099) Hemoglobin POC (test 11.9 g/dL 12-16 L code = 61519654) Hematocrit POC (test 35.0 % 37.0-47.0 L code = 96590596) Lab Interpretation (test Abnormal code = 79877-1) [facility] BMP POC docked [id number] 13:48:46 Test Item Value Reference Range Interpretation Comments Sodium POC (test code = 126 mmol/L 136-145 L 06172738) Potassium POC (test code 4.4 mmol/L 3.5-5.1 = 42335071) Chloride POC (test code 100 mmol/L 98-107 = 26269918) TCO2 POC (test code = 17 mmol/L 21-32 L Physic rachel Notified 07180411) Urea Nitrogen POC (test 36 mg/dL 7-18 H code = 61109167) Glucose POC (test code = 114 mg/dL 74-106 H 82848060) Hemoglobin POC (test 11.9 g/dL 12-16 L code = 55009165) Hematocrit POC (test 35.0 % 37.0-47.0 L code = 60395643) Lab Interpretation (test Abnormal code = 19591-9) [facility] POC docked [id number] 13:48:46 Test Item Value Reference Range Interpretation Comments Sodium POC (test code = 126 mmol/L 136-145 L 84586999) Potassium POC (test code 4.4 mmol/L 3.5-5.1 = 72565550) Chloride POC (test code 100 mmol/L 98-107 = 68791340) TCO2 POC (test code = 17 mmol/L 21-32 L Physic rachel Notified 39719207) Urea Nitrogen POC (test 36 mg/dL 7-18 H code = 94403973) Glucose POC (test code = 114 mg/dL 74-106 H 40565858) Hemoglobin POC (test 11.9 g/dL 12-16 L code = 08132026) Hematocrit POC (test 35.0 % 37.0-47.0 L code = 84033755) Lab Interpretation (test Abnormal code = 34287-0) [facility] POC docked [id number] 13:48:46 Test Item Value Reference Range Interpretation Comments Sodium POC (test code = 126 mmol/L 136-145 L 71397532) Potassium POC (test code 4.4 mmol/L 3.5-5.1 = 56050009) Chloride POC (test code 100 mmol/L 98-107 = 85745194) TCO2 POC (test code = 17 mmol/L 21-32 L Physic rachel Notified 71945614) Urea Nitrogen POC (test 36 mg/dL 7-18 H code = 03186605) Glucose POC (test code = 114 mg/dL 74-106 H 02978272) Hemoglobin POC (test 11.9 g/dL 12-16 L code = 98621726) Hematocrit POC (test 35.0 % 37.0-47.0 L code = 11284309) Lab Interpretation (test Abnormal code = 96694-1) [facility] POC docked [id number] 13:48:46 Test Item Value Reference Range Interpretation Comments Sodium POC (test code = 126 mmol/L 136-145 L 86867215) Potassium POC (test code 4.4 mmol/L 3.5-5.1 = 01862231) Chloride POC (test code 100 mmol/L 98-107 = 11586805) TCO2 POC (test code = 17 mmol/L 21-32 L Physic rachel Notified 98697498) Urea Nitrogen POC (test 36 mg/dL 7-18 H code = 25608362) Glucose POC (test code = 114 mg/dL 74-106 H 88036460) Hemoglobin POC (test 11.9 g/dL 12-16 L code = 20534325) Hematocrit POC (test 35.0 % 37.0-47.0 L code = 18730051) Lab Interpretation (test Abnormal code = 98903-5) [facility] POC docked [id number] 13:48:46 Test Item Value Reference Range Interpretation Comments Sodium POC (test code = 126 mmol/L 136-145 L 64472782) Potassium POC (test code 4.4 mmol/L 3.5-5.1 = 32508130) Chloride POC (test code 100 mmol/L 98-107 = 13454231) TCO2 POC (test code = 17 mmol/L 21-32 L Physic rachel Notified 08180107) Urea Nitrogen POC (test 36 mg/dL 7-18 H code = 21240771) Glucose POC (test code = 114 mg/dL 74-106 H 08944769) Hemoglobin POC (test 11.9 g/dL 12-16 L code = 80945909) Hematocrit POC (test 35.0 % 37.0-47.0 L code = 35743200) Lab Interpretation (test Abnormal code = 19257-9) [facility] POC docked [id number] 13:48:46 Test Item Value Reference Range Interpretation Comments Sodium POC (test code = 126 mmol/L 136-145 L 60070860) Potassium POC (test code 4.4 mmol/L 3.5-5.1 = 19244215) Chloride POC (test code 100 mmol/L 98-107 = 31065519) TCO2 POC (test code = 17 mmol/L 21-32 L Physic rachel Notified 85122866) Urea Nitrogen POC (test 36 mg/dL 7-18 H code = 07608682) Glucose POC (test code = 114 mg/dL 74-106 H 26248233) Hemoglobin POC (test 11.9 g/dL 12-16 L code = 06217150) Hematocrit POC (test 35.0 % 37.0-47.0 L code = 98625858) Lab Interpretation (test Abnormal code = 17975-6) [facility] POC docked [id number] 13:48:46 Test Item Value Reference Range Interpretation Comments Sodium POC (test code = 126 mmol/L 136-145 L 37476878) Potassium POC (test code 4.4 mmol/L 3.5-5.1 = 48233177) Chloride POC (test code 100 mmol/L 98-107 = 54633535) TCO2 POC (test code = 17 mmol/L 21-32 L Physic rachel Notified 20316178) Urea Nitrogen POC (test 36 mg/dL 7-18 H code = 20534100) Glucose POC (test code = 114 mg/dL 74-106 H 36468974) Hemoglobin POC (test 11.9 g/dL 12-16 L code = 76432535) Hematocrit POC (test 35.0 % 37.0-47.0 L code = 45605736) Lab Interpretation (test Abnormal code = 36730-9) [facility] POC docked [id number] 13:48:46 Test Item Value Reference Range Interpretation Comments Sodium POC (test code = 126 mmol/L 136-145 L 04111572) Potassium POC (test code 4.4 mmol/L 3.5-5.1 = 19276241) Chloride POC (test code 100 mmol/L 98-107 = 90538538) TCO2 POC (test code = 17 mmol/L 21-32 L Physic rachel Notified 69355824) Urea Nitrogen POC (test 36 mg/dL 7-18 H code = 15429279) Glucose POC (test code = 114 mg/dL 74-106 H 98496434) Hemoglobin POC (test 11.9 g/dL 12-16 L code = 30154815) Hematocrit POC (test 35.0 % 37.0-47.0 L code = 50983519) Lab Interpretation (test Abnormal code = 49173-4) [facility] ORF1ab Resp Ql OLENA+[id number] 20:25:16 Test Item Value Reference Range Interpretation Comments Hospitalized? (test No code = 67188-7) ICU? (test code = No 48476-7) Symptomatic as No defined by CDC? (test code = 34260-5) Employed in No Healthcare? (test code = 11930-9) Resident in a No congregate care setting (including nursing homes, residential care for people with intellectual and developmental disabilities, psychiatric treatment facilities, group homes, board and care homes, homeless retirement, foster care or other): (test code = 94973-2) SARS-CoV-2 ORF1ab NOT DETECTED Not Detected INTERPRETA TION: No Resp Ql OLENA+probe detectable levels of (test code = SARS-CoV-2 54662-9) Coronavirus (COVID-19) were present in this patient's [...] SARS-CoV-2 mole cular diagnostic assa y utilizes Assistant Editor Mediated Amplification ( TMA) technology to r apidly detect the SARS -CoV-2 (COVID-19) viru s from respiratory adriaan ples. In accordance with\\XC2A0\\the FDA's guidance docume nt "Policy for Diagnostic Test s for Coronavirus Disease-2019 du ring the [facility]", ginger s test was developed, and its performance characteristics were verified by the [facility] molecular diagn ostics laboratory and is authorized for clinical diagno stic use. \\XC2A0\\Thi s laboratory is certified under the Clinical Labora tory Improvement Amendments (CLI A) as qualified to pe rform high complexity clinical labora tory testing. [facility] VBG POC docked [id number] 11:16:15 Test Item Value Reference Range Interpretation Comments pH, Pankaj POC (test code 7.32 7.33-7.43 L = 56131222) pCO2,Pankaj POC (test code 31.0 See_Comment L [Au tomated = 52346175) message] The sy stem which generated this result transmitted reference range : 38 - 50 mmHg. The reference range was not used to interpret this result as normal/abnormal . PO2, Venous POC (BKR) 44 See_Comment L [Auto mated (test code = 15680378) messa ge] The system which generated this result transmitted reference range : 50 - 75 mm Hg. The reference range was not used to interpret this result as normal/abnormal . Ionized Calcium POC 1.24 mmol/L 1.15-1.29 (test code = 47275073) HCO3, Pankaj POC (test 16 mmol/L 22-26 L code = 95716768) TCO2 POC (test code = 17 mmol/L 21-32 L 56461688) Base Deficit, Pankaj POC -9 (test code = 00364900) Sample Type (test code STEPAN Physi erik Notified = 00613316) % Sat, Pankaj POC (test 77 % code = 98798892) Lab Interpretation Abnormal (test code = 10106-6) [facility] VBG POC docked [id number] 11:16:15 Test Item Value Reference Range Interpretation Comments pH, Pankaj POC (test code 7.32 7.33-7.43 L = 99473226) pCO2,Pankaj POC (test code 31.0 See_Comment L [Au tomated = 48872672) message] The sy stem which generated this result transmitted reference range : 38 - 50 mmHg. The reference range was not used to interpret this result as normal/abnormal . PO2, Venous POC (BKR) 44 See_Comment L [Auto mated (test code = 06632062) messa ge] The system which generated this result transmitted reference range : 50 - 75 mm Hg. The reference range was not used to interpret this result as normal/abnormal . Ionized Calcium POC 1.24 mmol/L 1.15-1.29 (test code = 06186575) HCO3, Pankaj POC (test 16 mmol/L 22-26 L code = 13648291) TCO2 POC (test code = 17 mmol/L 21-32 L 19506385) Base Deficit, Pankaj POC -9 (test code = 25793907) Sample Type (test code STEPAN Moleler cian Notified = 82967660) % Sat, Pankaj POC (test 77 % code = 29361141) Lab Interpretation Abnormal (test code = 43116-8) [facility] VBG POC docked [id number] 11:16:15 Test Item Value Reference Range Interpretation Comments pH, Pankaj POC (test code 7.32 7.33-7.43 L = 21843981) pCO2,Pankaj POC (test code 31.0 See_Comment L [Au tomated = 10756137) message] The sy stem which generated this result transmitted reference range : 38 - 50 mmHg. The reference range was not used to interpret this result as normal/abnormal . PO2, Venous POC (BKR) 44 See_Comment L [Auto mated (test code = 08187352) LogicLoop ge] The system which generated this result transmitted reference range : 50 - 75 mm Hg. The reference range was not used to interpret this result as normal/abnormal . Ionized Calcium POC 1.24 mmol/L 1.15-1.29 (test code = 45224076) HCO3, Pankaj POC (test 16 mmol/L 22-26 L code = 13502538) TCO2 POC (test code = 17 mmol/L 21-32 L 94487148) Base Deficit, Pankaj POC -9 (test code = 36913522) Sample Type (test code STEPAN Physi erik Notified = 97976956) % Sat, Pankaj POC (test 77 % code = 75853756) Lab Interpretation Abnormal (test code = 61527-0) [facility] VBG POC docked [id number] 11:16:15 Test Item Value Reference Range Interpretation Comments pH, Pankaj POC (test code 7.32 7.33-7.43 L = 84811553) pCO2,Pankaj POC (test code 31.0 See_Comment L [Au tomated = 59605257) message] The sy stem which generated this result transmitted reference range : 38 - 50 mmHg. The reference range was not used to interpret this result as normal/abnormal . PO2, Venous POC (BKR) 44 See_Comment L [Auto mated (test code = 87222111) EzLikea ge] The system which generated this result transmitted reference range : 50 - 75 mm Hg. The reference range was not used to interpret this result as normal/abnormal . Ionized Calcium POC 1.24 mmol/L 1.15-1.29 (test code = 67917735) HCO3, Pankaj POC (test 16 mmol/L 22-26 L code = 51050736) TCO2 POC (test code = 17 mmol/L 21-32 L 17364801) Base Deficit, Pankaj POC -9 (test code = 24482167) Sample Type (test code IVEN Physi erik Notified = 45598793) % Sat, Pankaj POC (test 77 % code = 94117994) Lab Interpretation Abnormal (test code = 39264-0) [facility]BG POC docked [id number] 11:16:15 Test Item Value Reference Range Interpretation Comments pH, Pankaj POC (test code 7.32 7.33-7.43 L = 36802538) pCO2,Pankaj POC (test code 31.0 See_Comment L [Au tomated = 66449397) message] The sy stem which generated this result transmitted reference range : 38 - 50 mmHg. The reference range was not used to interpret this result as normal/abnormal . PO2, Venous POC (BKR) 44 See_Comment L [Auto mated (test code = 55764862) [employer]Like[employer] ge] The system which generated this result transmitted reference range : 50 - 75 mm Hg. The reference range was not used to interpret this result as normal/abnormal . Ionized Calcium POC 1.24 mmol/L 1.15-1.29 (test code = 23910803) HCO3, Pankaj POC (test 16 mmol/L 22-26 L code = 30543136) TCO2 POC (test code = 17 mmol/L 21-32 L 12233094) Base Deficit, Pankaj POC -9 (test code = 30156493) Sample Type (test code IVEN Physi erik Notified = 59068356) % Sat, Pankaj POC (test 77 % code = 35108075) Lab Interpretation Abnormal (test code = 72018-4) [facility] VBG POC docked [id number] 11:16:15 Test Item Value Reference Range Interpretation Comments pH, Pankaj POC (test code 7.32 7.33-7.43 L = 61982277) pCO2,Pankaj POC (test code 31.0 See_Comment L [Au tomated = 77904681) message] The sy stem which generated this result transmitted reference range : 38 - 50 mmHg. The reference range was not used to interpret this result as normal/abnormal . PO2, Venous POC (BKR) 44 See_Comment L [Auto mated (test code = 01126207) messa ge] The system which generated this result transmitted reference range : 50 - 75 mm Hg. The reference range was not used to interpret this result as normal/abnormal . Ionized Calcium POC 1.24 mmol/L 1.15-1.29 (test code = 26182637) HCO3, Pankaj POC (test 16 mmol/L 22-26 L code = 31482852) TCO2 POC (test code = 17 mmol/L 21-32 L 32657790) Base Deficit, Pankaj POC -9 (test code = 38831799) Sample Type (test code IVEN Physi erik Notified = 43871452) % Sat, Pankaj POC (test 77 % code = 15316939) Lab Interpretation Abnormal (test code = 43330-2) [facility] VBG POC docked [id number] 11:16:15 Test Item Value Reference Range Interpretation Comments pH, Pankaj POC (test code 7.32 7.33-7.43 L = 06371585) pCO2,Pankaj POC (test code 31.0 See_Comment L [Au tomated = 91954322) message] The sy stem which generated this result transmitted reference range : 38 - 50 mmHg. The reference range was not used to interpret this result as normal/abnormal . PO2, Venous POC (BKR) 44 See_Comment L [Auto mated (test code = 43021830) messa ge] The system which generated this result transmitted reference range : 50 - 75 mm Hg. The reference range was not used to interpret this result as normal/abnormal . Ionized Calcium POC 1.24 mmol/L 1.15-1.29 (test code = 32773221) HCO3, Paknaj POC (test 16 mmol/L 22-26 L code = 74410313) TCO2 POC (test code = 17 mmol/L 21-32 L 17821365) Base Deficit, Pankaj POC -9 (test code = 36527429) Sample Type (test code STEPAN Physi erik Notified = 82989699) % Sat, Pankaj POC (test 77 % code = 77608827) Lab Interpretation Abnormal (test code = 77745-5) [facility] VBG POC docked [id number] 11:16:15 Test Item Value Reference Range Interpretation Comments pH, Pankaj POC (test code 7.32 7.33-7.43 L = 32811791) pCO2,Pankaj POC (test code 31.0 See_Comment L [Au tomated = 08824560) message] The sy stem which generated this result transmitted reference range : 38 - 50 mmHg. The reference range was not used to interpret this result as normal/abnormal . PO2, Venous POC (BKR) 44 See_Comment L [Auto mated (test code = 56468196) messa ge] The system which generated this result transmitted reference range : 50 - 75 mm Hg. The reference range was not used to interpret this result as normal/abnormal . Ionized Calcium POC 1.24 mmol/L 1.15-1.29 (test code = 69619776) HCO3, Pankaj POC (test 16 mmol/L 22-26 L code = 45231131) TCO2 POC (test code = 17 mmol/L 21-32 L 81969900) Base Deficit, Pankaj POC -9 (test code = 74999779) Sample Type (test code STEPAN valencia Notified = 72392294) % Sat, Pankaj POC (test 77 % code = 31708813) Lab Interpretation Abnormal (test code = 35092-3) [facility] VBG POC docked [id number] 11:16:15 Test Item Value Reference Range Interpretation Comments pH, Pankaj POC (test code 7.32 7.33-7.43 L = 78769152) pCO2,Pankaj POC (test code 31.0 See_Comment L [Au tomated = 10948534) message] The sy stem which generated this result transmitted reference range : 38 - 50 mmHg. The reference range was not used to interpret this result as normal/abnormal . PO2, Venous POC (BKR) 44 See_Comment L [Auto mated (test code = 29371314) messa ge] The system which generated this result transmitted reference range : 50 - 75 mm Hg. The reference range was not used to interpret this result as normal/abnormal . Ionized Calcium POC 1.24 mmol/L 1.15-1.29 (test code = 53518705) HCO3, Pankaj POC (test 16 mmol/L 22-26 L code = 99262714) TCO2 POC (test code = 17 mmol/L 21-32 L 18589062) Base Deficit, Pankaj POC -9 (test code = 59165637) Sample Type (test code IVFLORENCE Physi erik Notified = 45707817) % Sat, Pankaj POC (test 77 % code = 53464401) Lab Interpretation Abnormal (test code = 52702-0) [facility] VBG POC docked [id number] 11:16:15 Test Item Value Reference Range Interpretation Comments pH, Pankaj POC (test code 7.32 7.33-7.43 L = 04528486) pCO2,Pankaj POC (test code 31.0 See_Comment L [Au tomated = 22817861) message] The sy stem which generated this result transmitted reference range : 38 - 50 mmHg. The reference range was not used to interpret this result as normal/abnormal . PO2, Venous POC (BKR) 44 See_Comment L [Auto mated (test code = 05667263) MobStac] The system which generated this result transmitted reference range : 50 - 75 mm Hg. The reference range was not used to interpret this result as normal/abnormal . Ionized Calcium POC 1.24 mmol/L 1.15-1.29 (test code = 15668715) HCO3, Pankaj POC (test 16 mmol/L 22-26 L code = 88220208) TCO2 POC (test code = 17 mmol/L 21-32 L 00744568) Base Deficit, Pankaj POC -9 (test code = 92528942) Sample Type (test code IVFLORENCE Physi erik Notified = 65410773) % Sat, Pankaj POC (test 77 % code = 08662084) Lab Interpretation Abnormal (test code = 03741-8) [facility]BG POC docked [id number] 11:16:15 Test Item Value Reference Range Interpretation Comments pH, Pankaj POC (test code 7.32 7.33-7.43 L = 24521833) pCO2,Pankaj POC (test code 31.0 See_Comment L [Au tomated = 92458790) message] The sy stem which generated this result transmitted reference range : 38 - 50 mmHg. The reference range was not used to interpret this result as normal/abnormal . PO2, Venous POC (BKR) 44 See_Comment L [Auto mated (test code = 46970477) EzLikea ge] The system which generated this result transmitted reference range : 50 - 75 mm Hg. The reference range was not used to interpret this result as normal/abnormal . Ionized Calcium POC 1.24 mmol/L 1.15-1.29 (test code = 64322347) HCO3, Pankaj POC (test 16 mmol/L 22-26 L code = 15692757) TCO2 POC (test code = 17 mmol/L 21-32 L 67864694) Base Deficit, Pankaj POC -9 (test code = 30154392) Sample Type (test code IVEN Physi erik Notified = 82973696) % Sat, Pankaj POC (test 77 % code = 89293271) Lab Interpretation Abnormal (test code = 71955-2) [facility]BG POC docked [id number] 11:16:15 Test Item Value Reference Range Interpretation Comments pH, Pankaj POC (test code 7.32 7.33-7.43 L = 51900662) pCO2,Pankaj POC (test code 31.0 See_Comment L [Au tomated = 08568399) message] The sy stem which generated this result transmitted reference range : 38 - 50 mmHg. The reference range was not used to interpret this result as normal/abnormal . PO2, Venous POC (BKR) 44 See_Comment L [Auto mated (test code = 71083915) EzLikea ge] The system which generated this result transmitted reference range : 50 - 75 mm Hg. The reference range was not used to interpret this result as normal/abnormal . Ionized Calcium POC 1.24 mmol/L 1.15-1.29 (test code = 18070613) HCO3, Pankaj POC (test 16 mmol/L 22-26 L code = 81143112) TCO2 POC (test code = 17 mmol/L 21-32 L 48261061) Base Deficit, Pankaj POC -9 (test code = 84997278) Sample Type (test code IVEN Physi erik Notified = 22243724) % Sat, Pankaj POC (test 77 % code = 27552243) Lab Interpretation Abnormal (test code = 33712-1) [facility] POC docked [id number] 11:16:15 Test Item Value Reference Range Interpretation Comments pH, Pankaj POC (test code 7.32 7.33-7.43 L = 04498976) pCO2,Pankaj POC (test code 31.0 See_Comment L [Au tomated = 76980414) message] The sy stem which generated this result transmitted reference range : 38 - 50 mmHg. The reference range was not used to interpret this result as normal/abnormal . PO2, Venous POC (BKR) 44 See_Comment L [Auto mated (test code = 46329738) EzLikea ge] The system which generated this result transmitted reference range : 50 - 75 mm Hg. The reference range was not used to interpret this result as normal/abnormal . Ionized Calcium POC 1.24 mmol/L 1.15-1.29 (test code = 69447341) HCO3, Pankaj POC (test 16 mmol/L 22-26 L code = 76050909) TCO2 POC (test code = 17 mmol/L 21-32 L 63964347) Base Deficit, Pankaj POC -9 (test code = 37543523) Sample Type (test code STEPAN Physi erik Notified = 86993451) % Sat, Pankaj POC (test 77 % code = 27859338) Lab Interpretation Abnormal (test code = 82230-9) [facility] POC docked [id number] 11:16:15 Test Item Value Reference Range Interpretation Comments pH, Pankaj POC (test code 7.32 7.33-7.43 L = 32034717) pCO2,Pankaj POC (test code 31.0 See_Comment L [Au tomated = 12405169) message] The sy stem which generated this result transmitted reference range : 38 - 50 mmHg. The reference range was not used to interpret this result as normal/abnormal . PO2, Venous POC (BKR) 44 See_Comment L [Auto mated (test code = 50275865) EzLikea ge] The system which generated this result transmitted reference range : 50 - 75 mm Hg. The reference range was not used to interpret this result as normal/abnormal . Ionized Calcium POC 1.24 mmol/L 1.15-1.29 (test code = 01760995) HCO3, Pankaj POC (test 16 mmol/L 22-26 L code = 52937111) TCO2 POC (test code = 17 mmol/L 21-32 L 27558891) Base Deficit, Pankaj POC -9 (test code = 43705375) Sample Type (test code STEPAN Physi erik Notified = 09003595) % Sat, Pankaj POC (test 77 % code = 43312619) Lab Interpretation Abnormal (test code = 14369-4) [facility] POC docked [id number] 11:16:15 Test Item Value Reference Range Interpretation Comments pH, Pankaj POC (test code 7.32 7.33-7.43 L = 45349455) pCO2,Pankaj POC (test code 31.0 See_Comment L [Au tomated = 49068467) message] The sy stem which generated this result transmitted reference range : 38 - 50 mmHg. The reference range was not used to interpret this result as normal/abnormal . PO2, Venous POC (BKR) 44 See_Comment L [Auto mated (test code = 81303921) messa ge] The system which generated this result transmitted reference range : 50 - 75 mm Hg. The reference range was not used to interpret this result as normal/abnormal . Ionized Calcium POC 1.24 mmol/L 1.15-1.29 (test code = 64632359) HCO3, Pankaj POC (test 16 mmol/L 22-26 L code = 86542543) TCO2 POC (test code = 17 mmol/L 21-32 L 92168311) Base Deficit, Pankaj POC -9 (test code = 03083194) Sample Type (test code STEPAN Physi erik Notified = 95935273) % Sat, Pankaj POC (test 77 % code = 77203859) Lab Interpretation Abnormal (test code = 69047-0) [facility] POC docked [id number] 11:16:15 Test Item Value Reference Range Interpretation Comments pH, Pankaj POC (test code 7.32 7.33-7.43 L = 59690109) pCO2,Pankaj POC (test code 31.0 See_Comment L [Au tomated = 57924510) message] The sy stem which generated this result transmitted reference range : 38 - 50 mmHg. The reference range was not used to interpret this result as normal/abnormal . PO2, Venous POC (BKR) 44 See_Comment L [Auto mated (test code = 62147236) messa ge] The system which generated this result transmitted reference range : 50 - 75 mm Hg. The reference range was not used to interpret this result as normal/abnormal . Ionized Calcium POC 1.24 mmol/L 1.15-1.29 (test code = 50988307) HCO3, Pankaj POC (test 16 mmol/L 22-26 L code = 64864973) TCO2 POC (test code = 17 mmol/L 21-32 L 02023708) Base Deficit, Pankaj POC -9 (test code = 72139774) Sample Type (test code IVFLORENCE Physi erik Notified = 44618705) % Sat, Pankaj POC (test 77 % code = 84509045) Lab Interpretation Abnormal (test code = 27897-2) [facility] POC docked [id number] 11:16:15 Test Item Value Reference Range Interpretation Comments pH, Pankaj POC (test code 7.32 7.33-7.43 L = 95359894) pCO2,Pankaj POC (test code 31.0 See_Comment L [Au tomated = 05071163) message] The sy stem which generated this result transmitted reference range : 38 - 50 mmHg. The reference range was not used to interpret this result as normal/abnormal . PO2, Venous POC (BKR) 44 See_Comment L [Auto mated (test code = 21015292) MobStac] The system which generated this result transmitted reference range : 50 - 75 mm Hg. The reference range was not used to interpret this result as normal/abnormal . Ionized Calcium POC 1.24 mmol/L 1.15-1.29 (test code = 54677549) HCO3, Pankaj POC (test 16 mmol/L 22-26 L code = 49523295) TCO2 POC (test code = 17 mmol/L 21-32 L 54487714) Base Deficit, Pankaj POC -9 (test code = 68016424) Sample Type (test code IVEN Physi erik Notified = 56260303) % Sat, Pankaj POC (test 77 % code = 39290917) Lab Interpretation Abnormal (test code = 57390-1) [facility] POC docked [id number] 11:16:15 Test Item Value Reference Range Interpretation Comments pH, Pankaj POC (test code 7.32 7.33-7.43 L = 11213959) pCO2,Pankaj POC (test code 31.0 See_Comment L [Au tomated = 21669924) message] The sy stem which generated this result transmitted reference range : 38 - 50 mmHg. The reference range was not used to interpret this result as normal/abnormal . PO2, Venous POC (BKR) 44 See_Comment L [Auto mated (test code = 48279204) EzLikea ge] The system which generated this result transmitted reference range : 50 - 75 mm Hg. The reference range was not used to interpret this result as normal/abnormal . Ionized Calcium POC 1.24 mmol/L 1.15-1.29 (test code = 38510094) HCO3, Pankaj POC (test 16 mmol/L 22-26 L code = 97062702) TCO2 POC (test code = 17 mmol/L 21-32 L 84165018) Base Deficit, Pankaj POC -9 (test code = 54398739) Sample Type (test code IVEN Physi erik Notified = 82809723) % Sat, Pankaj POC (test 77 % code = 40521083) Lab Interpretation Abnormal (test code = 52399-3) [facility] POC docked [id number] 11:16:15 Test Item Value Reference Range Interpretation Comments pH, Pankaj POC (test code 7.32 7.33-7.43 L = 12532873) pCO2,Pankaj POC (test code 31.0 See_Comment L [Au tomated = 65197155) message] The sy stem which generated this result transmitted reference range : 38 - 50 mmHg. The reference range was not used to interpret this result as normal/abnormal . PO2, Venous POC (BKR) 44 See_Comment L [Auto mated (test code = 46766359) messa ge] The system which generated this result transmitted reference range : 50 - 75 mm Hg. The reference range was not used to interpret this result as normal/abnormal . Ionized Calcium POC 1.24 mmol/L 1.15-1.29 (test code = 77235018) HCO3, Pankaj POC (test 16 mmol/L 22-26 L code = 88666064) TCO2 POC (test code = 17 mmol/L 21-32 L 80171481) Base Deficit, Pankaj POC -9 (test code = 06765414) Sample Type (test code IVEN Physi erik Notified = 67738280) % Sat, Pankaj POC (test 77 % code = 25490178) Lab Interpretation Abnormal (test code = 80451-6) [facility] POC docked [id number] 11:16:15 Test Item Value Reference Range Interpretation Comments pH, Pankaj POC (test code 7.32 7.33-7.43 L = 58427396) pCO2,Pankaj POC (test code 31.0 See_Comment L [Au tomated = 92234427) message] The sy stem which generated this result transmitted reference range : 38 - 50 mmHg. The reference range was not used to interpret this result as normal/abnormal . PO2, Venous POC (BKR) 44 See_Comment L [Auto mated (test code = 49294349) messa ge] The system which generated this result transmitted reference range : 50 - 75 mm Hg. The reference range was not used to interpret this result as normal/abnormal . Ionized Calcium POC 1.24 mmol/L 1.15-1.29 (test code = 21736765) HCO3, Pankaj POC (test 16 mmol/L 22-26 L code = 65168182) TCO2 POC (test code = 17 mmol/L 21-32 L 90997952) Base Deficit, Pankaj POC -9 (test code = 04384421) Sample Type (test code IVFLORENCE Physi erik Notified = 03330044) % Sat, Pankaj POC (test 77 % code = 82625419) Lab Interpretation Abnormal (test code = 49523-8) [place] [address] LEAD [id number] 20:59:5612 LEAD EKG FOR [facility] Test Date: 5950-67-40Hed Name: DORA JOSEPH Department: 5520Patient ID: [id number] Room: Gender: M Gem Setter: [id number]: 1970 Requested By: TANJA Garza Number: [id number] Reading MD: Chiara Calles MeasurementsIntervals [place] Rate: 75 P: 84PR: 153 QRS: 67QRSD: 104 T: 77QT: 344 QTc: 373 Interpretive StatementsSINUS RHYTHMPOSSIBLE RIGHT VENTRICULAR CONDUCTION DELAY [RSR (QR) IN V1/V2]Electronically Signed On 01-09-2022 8:27:19 CDT by [place] [address] LEAD [id number] 20:59:5612 LEAD EKG FOR [facility] Test Date: 3398-22-31Nou Name: DORA JOSEPH Department: 5520Patient ID: [id number] Room: Gender: M Gem Setter: [id number]: 1970 Requested By: TANJA Garza Number: [id number] Reading MD: Chiara Calles MeasurementsIntervals [place] Rate: 75 P: 84PR: 153 QRS: 67QRSD: 104 T: 77QT: 344 QTc: 373 Interpretive StatementsSINUS RHYTHMPOSSIBLE RIGHT VENT RICULAR CONDUCTION DELAY [RSR (QR) IN V1/V2]Electronically Signed On 01-09-2022 8:27:19 CDT by [facility] HealthCrowdProcessWadley Regional Medical CenterEdufii [place] [address] LEAD [id number] 20:59:5612 LEAD EKG FOR [facility] Test Date: 4302-79-12Vak Name: DORA PAEZRY Department: 5520Patient ID: [id number] Room: Gender: M Gem Setter: [id number]: 1970 Requested By: TANJA Garza Number: [id number] Reading MD: Chiara Calles MeasurementsIntervals [place] Rate: 75 P: 84PR: 153 QRS: 67QRSD: 104 T: 77QT: 344 QTc: 373 Interpretive StatementsSINUS RHYTHMPOSSIBLE RIGHT VENTRICULAR CONDUCTION DELAY [RSR (QR) IN V1/V2]Electronically Signed On 01-09-2022 8:27:[address] [facility] CenterOxford ImmunotecWadley Regional Medical CenterEdufii [place] [address] LEAD [id number] 20:59:5612 LEAD EKG FOR [facility] Test Date: 9240-34-02Mwk Name: DORA PAEZRY Department: 5520Patient ID: [id number] Room: Gender: M Gem Setter: [id number]: 1970 Requested By: TANJA Garza Number: [id number] Reading MD: Chiara Calles MeasurementsIntervals [place] Rate: 75 P: 84P R: 153 QRS: 67QRSD: 104 T: 77QT: 344 QTc: 373 Interpretive StatementsSINUS RHYTHMPOSSIBLE RIGHT VENTRICULAR CONDUCTION DELAY [RSR (QR) IN V1/V2]Electronically Signed On 01-09-2022 8:27:19 CDT by [place] ProlifybakariVardhman TextilesCompaEdufii Vfrpta41 LEAD [id number] 20:59:5612 LEAD EKG FOR [facility] Test Date: 1182-48-75Fmb Name: DORA PAEZRY Department: 5520Patient ID: [id number] Room: Gender: M Gem Setter: [id number]: 1970 Requested By: TANJA Garza Number: [id number] Reading MD: Chiara Calles MeasurementsIntervals [place] Rate: 75 P: 84PR: 153 QRS: 67QRSD: 104 T: 77QT: 344 QTc: 373 Interpretive StatementsSINUS RHYTHMPOSSIBLE RIGHT VENTRICULAR CONDUCTION DELAY [RSR (QR) IN V1/V2]Electronically Signed On 01-09-2022 8:27:19 CDT by ChiaraProlifyMarryWadley Regional Medical CenterEdufii Zbwgrz33 LEAD [id number] 20:59:5612 LEAD EKG FOR [facility] Test Date: 4421-29-54Fvk Name: DORA ELLSWORTH Department: 5520Patient ID: [id number] Room: Gender: M Gem Setter: [id number]: 1970 Requested By: TANJA Garza Number: [id number] Reading MD: Chiara Calles MeasurementsIntervals [place] Rate: 75 P: 84PR: 153 QRS: 67QRSD: 104 T: 77QT: 344 QTc: 373 Interpretive StatementsSINUS RHYTHMPOSSIBLE RIGHT VENT RICULAR CONDUCTION DELAY [RSR (QR) IN V1/V2]Electronically Signed On 01-09-2022 8:27:[address] [facility] Medical CenterrobertCrowdProcessWadley Regional Medical CenterEdufii Isvnmo04 LEAD [id number] 20:59:5612 LEAD EKG FOR [facility] Test Date: 2762-33-62Hfz Name: DORA ELLSWORTH Department: 5520Patient ID: [id number] Room: Gender: M Gem Setter: [id number]: 1970 Requested By: TANJA Garza Number: [id number] Reading MD: Chiara Calles MeasurementsIntervals [place] Rate: 75 P: 84PR: 153 QRS: 67QRSD: 104 T: 77QT: 344 QTc: 373 Interpretive StatementsSINUS RHYTHMPOSSIBLE RIGHT VENTRICULAR CONDUCTION DELAY [RSR (QR) IN V1/V2]Electronically Signed On 01-09-2022 8:27:19 CDT by Chiara EsquedaEpuls12 LEAD [id number] 20:59:5612 LEAD EKG FOR [facility] Test Date: 1503-85-51Vuu Name: DORA JOSEPH Department: 5520Patient ID: [id number] Room: Gender: Gem Setter: [id number]: 1970 Requested By: TANJA Garza Number: [id number] Reading MD: Chiara Calles MeasurementsIntervals [place] Rate: 75 P: 84P R: 153 QRS: 67QRSD: 104 T: 77QT: 344 QTc: 373 Interpretive StatementsSINUS RHYTHMPOSSIBLE RIGHT VENTRICULAR CONDUCTION DELAY [RSR (QR) IN V1/V2]Electronically Signed On 01-09-2022 8:27:19 CDT by GenevaEpuls12 LEAD [id number] 20:59:5612 LEAD EKG FOR [facility] Test Date: 6820-40-30Mlf Name: DORA JOSEPH Department: 5520Patient ID: [id number] Room: Gender: Gem Setter: [id number]: 1970 Requested By: TANJA Garza Number: [id number] Reading MD: Chiara Calles MeasurementsIntervals [place] Rate: 75 P: 84PR: 153 QRS: 67QRSD: 104 T: 77QT: 344 QTc: 373 Interpretive StatementsSINUS RHYTHMPOSSIBLE RIGHT VENTRICULAR CONDUCTION DELAY [RSR (QR) IN V1/V2]Electronically Signed On 01-09-2022 8:27:19 CDT by Chiara DavisVardhman TextilesCompaEpuls12 LEAD [id number] 20:59:5612 LEAD EKG FOR [facility] Test Date: 5438-46-17Lyy Name: DORA PAEZRY Department: 5520Patient ID: [id number] Room: Gender: M Gem Setter: [id number]: 1970 Requested By: TANJA Garza Number: [id number] Reading MD: Chiara Calles MeasurementsIntervals [place] Rate: 75 P: 84PR: 153 QRS: 67QRSD: 104 T: 77QT: 344 QTc: 373 Interpretive StatementsSINUS RHYTHMPOSSIBLE RIGHT VENT RICULAR CONDUCTION DELAY [RSR (QR) IN V1/V2]Electronically Signed On 01-09-2022 8:27:19 CDT by SeeKohort12 LEAD [id number] 20:59:5612 LEAD EKG FOR [facility] Test Date: 5819-38-42Tjn Name: DORA JOSEPH Department: 5520Patient ID: [id number] Room: Gender: M Gem Setter: [id number]: 1970 Requested By: TANJA Garza Number: [id number] Reading MD: Chiara Calles MeasurementsIntervals [place] Rate: 75 P: 84PR: 153 QRS: 67QRSD: 104 T: 77QT: 344 QTc: 373 Interpretive StatementsSINUS RHYTHMPOSSIBLE RIGHT VENTRICULAR CONDUCTION DELAY [RSR (QR) IN V1/V2]Electronically Signed On 01-09-2022 8:27:19 CDT by Chiara ProlifybakariKohort12 LEAD [id number] 20:59:5612 LEAD EKG FOR [facility] Test Date: 4468-65-02Uub Name: DORA PAEZRY Department: 5520Patient ID: [id number] Room: Gender: M Gem Setter: [id number]: 1970 Requested By: TANJA Garza Number: [id number] Reading MD: Chiara Calles MeasurementsIntervals [place] Rate: 75 P: 84 CO: 153 QRS: 67QRSD: 104 T: 77QT: 344 QTc: 373 Interpretive StatementsSINUS RHYTHMPOSSIBLE RIGHT VENTRICULAR CONDUCTION DELAY [RSR (QR) IN V1/V2]Electronically Signed On 01-09-2022 8:27:19 CDT by Rettyrobert [email or web address] LEAD [id number] 20:59:5612 LEAD EKG FOR [facility] Test Date: 5341-01-97Nfp Name: DORA PAEZRY Department: 5520Patient ID: [id number] Room: Gender: M Gem Setter: [id number]: 1970 Requested By: TANJA Garza Number: [id number] Reading MD: Chiara Calles MeasurementsIntervals [place] Rate: 75 P: 84PR: 153 QRS: 67QRSD: 104 T: 77QT: 344 QTc: 373 Interpretive StatementsSINUS RHYTHMPOSSIBLE RIGHT VENTRICULAR CONDUCTION DELAY [RSR (QR) IN V1/V2]Electronically Signed On 01-09-2022 8:27:19 CDT by Krupa Uqjrik18 LEAD [id number] 20:59:5612 LEAD EKG FOR [facility] Test Date: 8524-12-91Hrv Name: DORA PAEZRY Department: 5520Patient ID: [id number] Room: Gender: M Gem Setter: [id number]: 1970 Requested By: TANJA Garza Number: [id number] Reading MD: Chiara Calles MeasurementsIntervals [place] Rate: 75 P: 84PR: 153 QRS: 67QRSD: 104 T: 77QT: 344 QTc: 373 Interpretive StatementsSINUS RHYTHMPOSSIBLE RIGHT PANKAJ TRICULAR CONDUCTION DELAY [RSR (QR) IN V1/V2]Electronically Signed On 01-09-2022 8:27:19 CDT by Chiara Redding Qfinso89 LEAD [id number] 20:59:5612 LEAD EKG FOR [facility] Test Date: 8181-14-55Meo Name: DORA ELLSWORTH Department: 5520Patient ID: [id number] Room: Gender: M Gem Setter: [id number]: 1970 Requested By: TANJA Garza Number: [id number] Reading MD: Chiara Calles MeasurementsIntervals [place] Rate: 75 P: 84PR: 153 QRS: 67QRSD: 104 T: 77QT: 344 QTc: 373 Interpretive StatementsSINUS RHYTHMPOSSIBLE RIGHT VENTRICULAR CONDUCTION DELAY [RSR (QR) IN V1/V2]Electronically Signed On 01-09-2022 8:27:19 CDT by [facility] CrowdProcessWadley Regional Medical CenterEpuls12 LEAD FEZ2403-02-24 20:59:5612 LEAD EKG FOR [facility] Test Date: 7613-49-89Gyx Name: DORA JOSEPH Department: 5520Patient ID: [id number] Room: Gender: M Gem Setter: [id number]: 1970 Requested By: TANJA Garza Number: [id number] Reading MD: Chiara Calles MeasurementsIntervals [place] Rate: 75 P: 84PR: 153 QRS: 67QRSD: 104 T: 77QT: 344 QTc: 373 Interpretive StatementsSINUS RHYTHMPOSSIBLE RIGHT VENTRICULAR CONDUCTION DELAY [RSR (QR) IN V1/V2]Electronically Signed On 01-09-2022 8:27:[address] [facility] CenterApplyInc.com12 LEAD [id number] 20:59:5612 LEAD EKG FOR [facility] Test Date: 3758-77-27Tpy Name: DORA PAEZRY Department: 5520Patient ID: [id number] Room: Gender: M Gem Setter: [id number]: 1970 Requested By: TANJA Garza Number: [id number] Reading MD: Chiara Calles MeasurementsIntervals [place] Rate: 75 P: 84PR: 153 QRS: 67QRSD: 104 T: 77QT: 344 QTc: 373 Interpretive StatementsSINUS RHYTHMPOSSIBLE RIGHT VENT RICULAR CONDUCTION DELAY [RSR (QR) IN V1/V2]Electronically Signed On 01-09-2022 8:27:19 CDT by [facility] HealthCrowdProcessWadley Regional Medical CenterEdufii Lkpcdu30 LEAD [id number] 20:59:5612 LEAD EKG FOR [facility] Test Date: 0960-89-55Xfn Name: DORA PAEZRY Department: 5520Patient ID: [id number] Room: Gender: M Gem Setter: [id number]: 1970 Requested By: TANJA Garza Number: [id number] Reading MD: Chiara Calles MeasurementsIntervals [place] Rate: 75 P: 84PR: 153 QRS: 67QRSD: 104 T: 77QT: 344 QTc: 373 Interpretive StatementsSINUS RHYTHMPOSSIBLE RIGHT VENTRICULAR CONDUCTION DELAY [RSR (QR) IN V1/V2]Electronically Signed On 01-09-2022 8:27:19 CDT by Chiara EsquedaAbigail [place] [address] LEAD [id number] 20:59:5612 LEAD EKG FOR [facility] Test Date: 6027-53-06Kgp Name: DORA JOSEPH Department: 5520Patient ID: [id number] Room: Gender: M Gem Setter: [id number]: 1970 Requested By: TANJA Garza Number: [id number] Reading MD: Chiara Calles MeasurementsIntervals [place] Rate: 75 P: 84P R: 153 QRS: 67QRSD: 104 T: 77QT: 344 QTc: 373 Interpretive StatementsSINUS RHYTHMPOSSIBLE RIGHT VENTRICULAR CONDUCTION DELAY [RSR (QR) IN V1/V2]Electronically Signed On 01-09-2022 8:27:[address] [facility] Medical CenterrobertMarryJoseph [place]ille [address] LEAD [id number] 20:59:5612 LEAD EKG FOR [facility] Test Date: 4127-54-48Wez Name: DORA JOSEPH Department: 5520Patient ID: [id number] Room: Gender: M Gem Setter: [id number]: 1970 Requested By: TANJA Garza Number: [id number] Reading MD: Chiara Calles MeasurementsIntervals [place] Rate: 75 P: 84PR: 153 QRS: 67QRSD: 104 T: 77QT: 344 QTc: 373 Interpretive StatementsSINUS RHYTHMPOSSIBLE RIGHT VENTRICULAR CONDUCTION DELAY [RSR (QR) IN V1/V2]Electronically Signed On 01-09-2022 8:27:19 CDT by [facility]Wal[facility] W/AUTO [id number] 23:52:00 Test Item Value Reference Range Interpretation [...] = MX#) 0.8 k/mm3 0.1-0.8 N LIVER [id number] 20:04:00 Test Item Value Reference Range Interpretation Comments TOTAL PROTEIN (test code 6.7 GM/DL 5.0-8.0 N Per formed by = PROT) 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 [facility] ALBUMIN (test code = 3.4 [...] 67 UNITS/L 25-125 N LYNDSEY) BASIC METABOLIC [id number] 19:54:00 Test Item Value Reference Range Interpretation [...] POCGLU) 81 MG/DL - CT ABD PELVIS W/[id number] 00:00:00 [facility]: MARIA ISABEL JOSEPH : 1970 Sex: M Name: MARIA ISABEL JOSEPH FSED : 1970 Age/S: 51 / M [address] [facility] Unit #: [id number] Loc: [place] [address] Phys: Raffaele Levi MD Acct: [id number] Dis Date: Status: PRE ER PHONE #: Exam Date: 09/23/20211999 FAX #: Reason: RUQ PAIN, VOMITING EXAMS: CPT CODE: [id number] CT ABD PELVIS W/CONT 23185 PROCEDURE INFORMATION: Exam: CT Abdomen And Pelvis [...] : 1970 Age/S: 51 / M [address] [facility] Unit #: [id number] Loc: [place] [address] Phys: Raffaele Levi MD Acct: [id number] Dis Date: Status: PRE ER PHONE #: Exam Date: 09/23/20211999 FAX #: Reason: RUQ PAIN, VOMITING EXAMS: CPT CODE:[id number] CT ABD PELVIS W/CONT 31923 <Continued> abdominal small bowel loops may relate to incomplete luminal distention or enteritis. 2. 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 No obstruction. at 204 Reported and signed by: Juan Juarez M.D. CC: Raffaele Levi MD Technologist:Stephanie Albrecht, RT(R)(CT) CTDI: DLP: Trnscb Date/Time: 09/23/2021 (2048) RafatR.SG9 Orig Print D/T: S: 09/23/2021 (2049) PAGE 2 Signed Report COMPREHENSIVE METABOLIC [id number] 11:51:00 Test Item Value Reference Range Interpretation [...] Units/L 50.0-136.0 N code = ALKP) PROTHROMBIN [id number] 11:41:00 Test Item Value Reference Range Interpretation Comments PROTHROMBIN TIME 10.9 SECONDS 9.9-12.8 N PATIENT (test code = PTP) INTERNATIONAL NORMAL 0.9 0.89-1.14 N THE INR IS TO BE USED RATIO (test code = ONLY FOR MONITORING INR) ORAL ANTICOAGULANTTH ERAPY. 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 [facility] BASIC METABOLIC [id number] 05:21:00 Test Item Value Reference Range Interpretation [...] (test code = POCGLU) 92 MG/DL GLUCOSE [id number] 05:19:00 Test Item Value Reference Range Interpretation Comments GLUCOSE BEDSIDE (test 51 MG/DL 70-110 L [facility] med by certified code = GLUBED) 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 [facility] CBC W/AUTO [id number] 14:00:00 Test Item Value Reference Range Interpretation [...] MX#) 0.2 k/mm3 0.1-0.8 N CBC W/AUTO [id number] 00:07:00 Test Item Value Reference Range Interpretation [...] = LY#) 2.4 K/uL 1.0-3.8 N LIVER [id number] 16:14:00 Test Item Value Reference Range Interpretation Comments TOTAL PROTEIN (test code 7.5 GM/DL 5.0-8.0 N Per formed by = PROT) 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 [facility] ALBUMIN (test code = 3.9 [...] 65 UNITS/L 25-125 N LYNDSEY) BASIC METABOLIC [id number] 16:07:00 Test Item Value Reference Range Interpretation [...] POCGLU) 96 MG/DL - XR CHEST 1 [id number] 00:00:00 [facility] : 1970 Sex: MFAX: Steve Urias MD [phone] [place]: [place] St: PRE Name: DORA JOSEPH MARIA ISABEL Castro FSED : 1970 Age/S: 51/M [address] [facility] Unit #: [id number] [place]: [place] [address] Phys: Steve Urias MD Acct: [id number] Dis Date: Status: PRE ER PHONE #: Exam Date: 06/27/2021 1544 FAX #: Reason: Abdominal Pain EXAMS: CPT CODE: [id number] XR CHEST 1 V 24686 PROCEDURE INFORMATION: Exam: XR Chest Exam date [...] CC: Steve Urias MD Technologist: RT Alanna(R)(CT) Trnohrd Date/Time/By: 06/27/2021 (1558) : By: GarettJG42 Orig Print D/T: S: 06/27/2021 (4256) PAGE 1 Signed Report- CT ABD PELVIS [id number] 00:00:00 [facility] : 1970 Sex: MName: DORA JOSEPH ED : 1970 Age/S: 51 / M [address] [facility] Unit #: [id number] Loc: [place] [address] Phys: Steve Urias MD Acct: [id number] Dis Date: Status: REG ER PHONE #: Exam Date: 06/27/2021 1625 FAX #: Reason: pain in region of colostomy EXAMS: CPT CODE: [id number] CT ABD PELVIS W/CONT 73707 PROCEDURE INFORMATION: Exam: CT Abdomen And Pelvis [...] present PAGE 1 Signed Report (CONTINUED) Name: OPALDORA Erazo FSED : 1970 Age/S: 51 / M [address] [facility] Unit #: [id number] Loc: [place] [address] Phys: Steve Urias Acct: [id number] Dis Date: Status: REG ER PHONE #: Exam Date: 06/27/2021 0085 FAX #: Reason: pain in region of colostomy EXAMS: CPT CODE: [id number] CT ABD PELVIS W/CONT 96977 <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 There is no evidence of associated intestinal obstruction. 2. No additional acute CT abnormalities of the abdomen or pelvis are identified. SL:131 at 1650 Reported and signed by: Marco Raman M.D. CC: Steve Urias MD Technologist:Yecenia Carbajal, RT(R)(CT) CTDI: DLP: Trnscb Date/Time: 06/27/2021 (1649) GarettDMM Orig Print D/T: S: 06/27/2021 (951) PAGE 2 Signed ReportCBC W/AUTO [id number] 09:20:00 Test Item Value Reference Range Interpretation [...] (test code NO = MDIFF) CBC W/AUTO [id number] 08:59:00 Test Item Value Reference Range Interpretation [...] REQUIRED (test code = MDIFF) BASIC METABOLIC [id number] 08:21:00 Test Item Value Reference Range Interpretation [...] 8.4 mg/dL 8.0-10.5 N CA) BASIC METABOLIC [id number] 08:34:00 Test Item Value Reference Range Interpretation [...] 8.4 mg/dL 8.0-10.5 N CA) CBC W/AUTO [id number] 07:41:00 Test Item Value Reference Range Interpretation [...] = MDIFF) UA RFLX MICR CULT IF [id number] 10:10:00 Test Item Value Reference Range Interpretation [...] Suprapubic Pain Temperature > 100.4 FSpecimen Description: [facility] [id number] 04:13:00 Test Item Value Reference Range Interpretation [...] mg/dL 8.0-10.5 N CA) Coronavirus 2019 nCoV [id number] 22:03:00 Test Item Value Reference Range Interpretation Comments Coronavirus 2019 Negative Negative Performed b y certified nCoV 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 Negative result s do not preclude FURK-OlI-7uauad tion and should not be u sed as the sole basis forp atient management deci sions. Negative result s should beconsidered in the context of a patient's recent exposures,histo ry, presence of clinical sig ns and symptoms consis tentwith COVID-19. 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 #: Exam Date: 04/28/2021 1914 FAX #: Reason: epigastric and LLQ pain, R-sided colostomy EXAMS:CPT CODE: [id number] CT ABD PELVIS W/CONT 81783 PROCEDURE INFORMATION: Exam: CT Abdomen And Pelvis [...] 1 Signed Report (CONTINUED) Name: DORA JOSEPH [facility] : 1970 Age/S: 51/ M [address] [facility] Unit #: [id number] Loc: [place] [address] Phys: Marcello Benoit MD Acct: [id number] Dis Date: Status: REG ER PHONE #: Exam Date: 04/28/2021 1914 FAX #: Reason: epigastric and LLQ pain, R-sided colostomy EXAMS: CPT CODE: [id number] CT ABD PELVIS W/CONT 51953 <Continued> Reproductive: Unremarkable as visualized. Bones/joints: Unremarkable. [...] 04/28/2021 (1955) t.FLEXR.KWL Orig Print D/T: S: 12/2020 (1955) PAGE 2 Signed Report- XR ABDOMEN 1 [id number] 12:53:00 Name: DORA JOSEPH [facility] : 1970 Age/S: 50 / M [address] [facility] Unit #: [id number] Loc: [place] [address] 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 Acct: [id number] Dis Date: Status: ADM IN PHONE#: [phone] Exam Date: 02/25/2020 1036 FAX #: Reason: abdominal distention EXAMS: CPT: [id number] XR ABDOMEN 1 V 63715 Fluoro Time: DAP (Gy m2): Air Kerma [...] the left lower quadrant(not previously seen) at 6953 Reported and signed by: Sol Paige MD CC: Andre Solano; Mark Perea MD PAGE1 Signed Report Name: DORA JOSEPH [facility] : 1970 Age/S: 50 / M [address] Unit #: [id number] Loc: [place] [address] 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 Acct: [id number] Dis Date: Status: ADM IN PHONE #: [phone] Exam Date: 02/25/2020 1036 FAX #: Reason: abdominal distention EXAMS: CPT: [id number] XR ABDOMEN 1 V 25793 Fluoro Time: DAP (Gy m2): Air Kerma (mGy): <Continued> Technologist: Nichole Dill RT(R) Trnscb Date/Time: 02/25/2020 (5400) tJUDSONEFM1 Orig Print D/T:S: 02/25/2020 (3604) PAGE 2 Signed Report COMPREHENSIVE METABOLIC [id number] 08:20:00 Test Item Value Reference Range Interpretation [...] 50-136 L TOTAL (test code = ALKP) [id number] 08:20:00 Test Item Value Reference Range Interpretation Comments MAGNESIUM (test code = MAG) 2.2 MG/DL 1.8-2.4 N THYROID STIMULATING [id number] 08:20:00 Test Item Value Reference Range Interpretation Comments THYROID STIMULATING HORMONE 5.430 mcIU/ML 0.340-4.820 H (test code = TSH) CBC W/AUTO [id number] 07:55:00 Test Item Value Reference Range Interpretation [...] N NRBC#) UA RFLX MICR CULT IF [id number] 12:29:00 Test Item Value Reference Range Interpretation [...] culture: Suprapubic PainUA RFLX MICR CULT IF [id number] 12:29:00 Test Item Value Reference Range Interpretation [...] for culture: Suprapubic PainCOVID 19 Asymptomatic IH [id number] 22:09:00 Test Item Value Reference Range Interpretation [...] tent with COVID-19. - CT ABD PELVIS [id number] 21:10:00 Name: DORA JOSEPH [facility] : 1970 Age/S: 50 / M [address] Unit #: [id number] Loc: [place] [address] Phys: Evin Castellanos MD Acct: [id number] Dis Date: Status: REG ER PHONE #: [phone] Exam Date: 02/23/20202047 FAX #: Reason: diffuse abdomen pain and distention EXAMS: CPT: [id number] CT ABD PELVIS W/CONT 39463 EXAM: - CT ABD PELVIS W/CONT LOCATION: [...] lymphadenopathy. PERITONEUM / RETROPERITONEUM: No free air orfluid. GI TRACT: No findings to suggest small bowel obstruction. There is similar chronic distentionof the colon, which is greatest at the transverse segment. The transverse colon measures up to 11.8 cm. No obstructing mass, strictures or volvulus seen. Colonic dilatation is similar when compared to gold avalos prior KUBs as well as the 12/12/2019 PAGE 1 Signed Report (CONTINUED) Name: DORA JOSEPH [place] : 1970 Age/S: 50 / M [address] Unit #: [id number] Loc: [place] Pr[address] Phys: Evin Castellanos MD Acct: [id number] Dis Date: Status: REG ER PHONE #: [phone] Exam Date: 02/23/20202047 FAX #: Reason: diffuse abdomen pain and distention EXAMS: CPT: [id number] CT ABD PELVIS W/CONT 65520 <Continued> CT. No bowel wall thickening or pneumatosis. There are postsurgical change of appendectomy. GENITOURINARY ORGANS: Prostatic calcifications are present. Prostateis normal in size. PELVIC FREE FLUID/FLUID COLLECTION: None. URINARY BLADDER: Unremarkable. EXTERNALSOFT TISSUE: No abnormalities. BONES: Regional osseous structures are intact. Unchanged lucent lesion within the L4 vertebral body which may reflect a hemangioma. IMPRESSION: 1. Unchanged chronic colonic dilatation when compared to multiple prior KUBs and CT. No evidence of stricture, mass or volvulus. No evidence of small bowel obstruction. at 0 Reported and signed by: Marybel José M.D. CC: Susana Meza 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; Carl Luevano MD Technologist:Rudy Zuniga, RT(R)(CT)(MRI) CTDI: DLP: Trnscb Date/Time: 02/23/2020 (2109) GarettTH15 Orig Print D/T: S: 02/23/2020 (2112) PAGE 2 Signed Report- XR CHEST 1 [id number] 21:03:00 [facility] [place] [facility] 1970 Age/S: 50 / M [address] Unit #: [id number] Loc: [place] [address] Phys: Evin Castellanos MD Acct: [id number] Dis Date: Status: REG ERPHONE #: [phone] Exam Date: 02/23/20202055 FAX #: Reason: Code Sepsis EXAMS: CPT: [id number] XRCHEST 1 V 19937 Fluoro Time: DAP (Gy m2): Air Kerma [...] disease. 2. Chronic colonic air distention unchanged. [id number] Reported and signed by: Monica Quijano MD CC: Susana Meza 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; Carl Luevano MD PAGE 1 Signed Report Name: DORA JOSEPH [facility] : 1970 Age/S: 50 / M [address] Unit #: [id number] Loc: [place] [address] Phys: Evin Castellanos MD Acct: [id number] Dis Date:Status: REG ER PHONE #: [phone] Exam Date: 02/23/20202055 FAX #: Reason: Code Sepsis EXAMS: CPT: [id number] XR CHEST 1 V 31601 Fluoro Time: DAP (Gy m2): Air Kerma (mGy): <Continued> Technologist: Rudy Zuniga RT(R)(CT)(MRI) Trnscb Date/Time: 02/23/2020 (2102) Alanis Orig Print D/T: S: 02/23/2020 (2106) PAGE 2 Signed ReportBASIC METABOLIC [id number] 20:02:00 Test Item Value Reference Range Interpretation [...] 8.5-10.1 N Completed by Nursing: RADHIKAHEPATIC FUNCTION [id number] 20:02:00 Test Item Value Reference Range Interpretation [...] N code = ALKP) Completed by Nursing: [id number] 20:02:00 Test Item Value Reference Range Interpretation Comments LIPASE (test code = LIP) 97 Unit/L 114-286 L Completed by Nursing: [id number]-[id number] 20:02:00 Test Item Value Reference Range Interpretation [...] brittani yby method. Completed by Nursing: NOLACTIC [id number] 19:59:00 Test Item Value Reference Range Interpretation Comments LACTIC ACID (test code = LACT) 1.2 mmol/L 0.4-2.0 N CBC W/AUTO [id number] 19:46:00 Test Item Value Reference Range Interpretation [...] CRITERIA = MDIFF) - XR ABDOMEN 2 [id number] 06:22:00 Name: DORA JOSEPH [facility] : 1970 Age/S: 50 / M [address] Unit #: [id number] Loc: [place] [address] Phys: León Robertson MD Acct: [id number] Dis Date: Status: ADM INPHONE #: [phone] Exam Date: 02/19/2020 0440 FAX #: Reason: megacolon EXAMS: CPT: [id number] XR ABDOMEN 2 V 33602 Fluoro Time: DAP (Gy m2): Air Kerma [...] PAGE 1 Signed Report Name: DORA JOSEPH [facility] : 1970 Age/S: 50 / M [address] Unit #: [id number] Loc: [place] [address] Phys: León Robertson MD Acct: [id number] Dis Date: Status: ADM IN PHONE #: [phone] Exam Date: 02/19/2020 0441 FAX #: Reason: megacolon EXAMS: CPT: [id number] XR ABDOMEN 2 V 46638 Fluoro Time: DAP (Gy m2): Air Kerma (mGy): <Continued> Technologist: Carrie Barnett, RT(R)(CT) Trnscb Date/Time: 02/19/2020 (621) t.FLEXRLisethAL7 Orig Print D/T: S: 02/19/2020 (624) PAGE 2 Signed ReportBASIC METABOLIC [id number] 05:52:00 Test Item Value Reference Range Interpretation [...] CA) 8.5 MG/DL 8.5-10.1 N CBC W/AUTO [id number] 05:40:00 Test Item Value Reference Range Interpretation [...] NO DIFF/SCN CRITERIA = MDIFF) BASIC METABOLIC [id number] 06:52:00 Test Item Value Reference Range Interpretation [...] CA) 8.3 MG/DL 8.5-10.1 L CBC W/AUTO [id number] 06:39:00 Test Item Value Reference Range Interpretation [...] DIFF/SCN CRITERIA = MDIFF) Coronavirus 2018 nCoV [id number] 05:35:00 Test Item Value Reference Range Interpretation [...] tent with COVID-19. - XR ABDOMEN 1 [id number] 07:32:00 Name: DORA JOSEPH [facility] : 1970 Age/S: 49 / M [address] Unit #: [id number] Loc: [place] [address] Phys: Jay Mayo MD Acct: [id number] Dis Date: Status: ADMIN PHONE #: [phone] Exam Date: 01/10/2020 0658 FAX #: Reason: follow up colonic ileus EXAMS: CPT: [id number] XR ABDOMEN 1 V 36677 Fluoro Time: DAP (Gy m2): Air Kerma [...] PAGE 1 Signed Report Name: DORA JOSEPH [place] : 1970Age/S: 49 / M [address] Unit #: [id number] Loc: [place] [address] Phys: Jay Mayo MD Acct: [id number] Dis Date: Status: ADM IN PHONE #: [phone] Exam Date: 01/10/2020 0658 FAX#: Reason: follow up colonic ileus EXAMS: CPT: [id number] XR ABDOMEN 1 V 22552 Fluoro Time: DAP (Gy m2): Air Kerma (mGy): <Continued> Technologist: Bakari De Leon RT(R)(CT) Trnscb Date/Time: 01/10/2020 (0732) Candido.CB5 Orig Print D/T: S: 01/10/2020 (0736) PAGE 2 Signed ReportCOMPREHENSIVE METABOLIC [id number] 05:56:00 Test Item Value Reference Range Interpretation [...] TOTAL (test code = ALKP) CBC W/AUTO [id number] 05:42:00 Test Item Value Reference Range Interpretation [...] = NO DIFF/SCN CRITERIA MDIFF) BASIC METABOLIC [id number] 06:59:00 Test Item Value Reference Range Interpretation [...] code = CA) 8.5 MG/DL 8.5-10.1 N [id number] 06:59:00 Test Item Value Reference Range Interpretation Comments MAGNESIUM (test code = MAG) 2.2 MG/DL 1.8-2.4 PROTHROMBIN [id number] 06:39:00 Test Item Value Reference Range Interpretation Comments PT PATIENT (test code = PTP) 13.1 SECONDS 9.3-12.9 H INTERNATIONAL NORMAL RATIO 1.16 INR Unit 0.8-1.2 N (test code = INR) CBC W/AUTO [id number] 06:22:00 Test Item Value Reference Range Interpretation [...] DIFF/SCN CRITERIA MDIFF) - XR ABDOMEN 1 [id number] 05:39:00 Name: DORA JOSEPH [facility] : 1970 Age/S: 49 / M [address] Unit #: [id number] Loc: [place] [address] Phys: Grulla,Andre STEVENP Acct: [id number] Dis Date: Status: ADM IN PHONE #: [phone] Exam Date: 01/09/2020522 FAX #: Reason: colonic ileus/obstruction EXAMS: CPT: [id number] XR ABDOMEN 1 V 55734 Fluoro Time: DAP (Gy m2): Air Kerma [...] PAGE 1 Signed Report Name: DORA JOSEPH [facility] : 1970 Age/S: 49 / M [address] [facility] Unit #: [id number] Loc: [place] [address] 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P Acct: [id number] Dis Date: Status: ADM IN PHONE #: [phone] Exam Date: 01/09/2020522 FAX #: Reason: colonic ileus/obstruction EXAMS: CPT: [id number] XR ABDOMEN 1 V 25300 Fluoro Time: DAP (Gy m2): Air Kerma (mGy): <Continued> Technologist: Carrie Barnett, RT(R)(CT) Trnscb Date/Time: 01/09/2020 (0539) Herrera Orig Print D/T: S: 01/09/2020 (0561) PAGE 2 Signed ReportCoronavirus 2019 nCoV Bedside 2020-01-08 22:38:00 Test Item Value Reference Range Interpretation Comments Coronavirus 2019 nCoV Bedside (test Negative Negative code = [id number]) Emergent procedure? YESCoronavirus 2019 nCoV [id number] 22:38:00 Test Item Value Reference Range Interpretation Comments Coronavirus 2019 nCoV Bedside (test Negative Negative code = [id number]) Emergent procedure? YESBASIC METABOLIC [id number] 18:42:00 Test Item Value Reference Range Interpretation [...] CA) 8.5 MG/DL 8.5-10.1 N CBC W/AUTO [id number] 10:50:00 Test Item Value Reference Range Interpretation [...] = NO DIFF/SCN CRITERIA MDIFF) COMPREHENSIVE METABOLIC [id number] 10:46:00 Test Item Value Reference Range Interpretation [...] 50-136 N TOTAL (test code = ALKP) [id number] 10:46:00 Test Item Value Reference Range Interpretation Comments MAGNESIUM (test code = MAG) 2.6 MG/DL 1.8-2.4 H COMPREHENSIVE METABOLIC [id number] 10:34:00 Test Item Value Reference Range Interpretation [...] TOTAL (test Unit/L 50-136 code = ALKP) [id number] 10:34:00 Test Item Value Reference Range Interpretation Comments MAGNESIUM (test code = MAG) MG/DL 1.8-2.4 - XR ABDOMEN 1 [id number] 08:28:00 Name: DORA JOSEPH [facility] : 1970 Age/S: 49 / M [address] Unit #: [id number] Loc: [place] [address] Phys: Yas Edwards MD Acct: [id number] Dis Date: Status: ADM IN PHONE #: [phone] Exam Date: 01/08/202010 FAX #: Reason: ileus EXAMS: CPT: [id number] XR ABDOMEN 1 W76021 Fluoro Time: DAP (Gy m2): Air Kerma [...] Bernardo Ochoa M.D. CC: Mark Perea MD; Ysa Edwards MD PAGE 1 Signed Report Name: DORA JOSEPH [place] : 1970 Age/S: 49 / M [address] [facility] Unit #: [id number] Loc: [place] [address] Phys: Yas Edwards MDAcct: [id number] Dis Date: Status: ADM IN PHONE #: [phone] Exam Date: 01/08/202010 FAX #: Reason: ileus EXAMS: CPT: [id number] XR ABDOMEN 1 V 46851 Fluoro Time: DAP (Gy m2): Air Kerma (mGy): <Continued> Technologist: Carrie Barnett, RT(R)(CT); ... Trnscb Date/Time: 01/08/2020 (827) tJAQUELINE Orig Print D/T: S: 01/08/2020 (31) PAGE 2 Signed ReportCOMPREHENSIVE METABOLIC [id number] 07:08:00 Test Item Value Reference Range Interpretation [...] 50-136 L TOTAL (test code = ALKP) [id number] 07:08:00 Test Item Value Reference Range Interpretation Comments MAGNESIUM (test code = MAG) 1.3 MG/DL 1.8-2.4 L COMPREHENSIVE METABOLIC [id number] 05:16:00 Test Item Value Reference Range Interpretation [...] 50-136 L TOTAL (test code = ALKP) [id number] 05:16:00 Test Item Value Reference Range Interpretation Comments MAGNESIUM (test code = MAG) 1.3 MG/DL 1.8-2.4 L CBC W/AUTO [id number] 05:02:00 Test Item Value Reference Range Interpretation [...] (test code = NO DIFF/SCN CRITERIA MDIFF) [id number] 16:51:00 Test Item Value Reference Range Interpretation Comments MAGNESIUM (test code = MAG) 2.3 MG/DL 1.8-2.4 N FE W/TOTAL IRON BINDING CAP.2020-01-07 16:51:00 Test Item Value Reference Range Interpretation Comments SERUM IRON (test code = IRON) 38 mcG/DL 65-175 L TOTAL IRON BINDING CAPACITY (test 322 mcG/DL 250-450 N code = TIBC) IRON SATURATION (test code = 12 % calc 12-57 N FESAT) [id number] 16:51:00 Test Item Value Reference Range Interpretation Comments FERRITIN (test code = DAVID) 17.6 NG/ML 5.0-323.0 N CALCIUM [id number] 16:50:00 Test Item Value Reference Range Interpretation Comments CALCIUM IONIZED (test code = NAVEED) 1.12 mmol/L 1.12-1.32 N - XR ABDOMEN 1 [id number] 10:29:00 Name: DORA JOSEPH [facility] : 1970 Age/S: 49 / M [address] Unit #: [id number] Loc: [place] [address] Phys: Verona Frost PA-C Acct: [id number] Dis Date: Status: ADM IN PHONE #: [phone] Exam Date: 01/07/2020 0712 FAX #: Reason: reassess SBO EXAMS: CPT: [id number] XR ABDOMEN 1 V 04564 Fluoro Time: DAP (Gy m2): Air Kerma (mGy): CLINICAL INFORMATION: Bowel obstruction. Dictation location: J9 Comparison: 01/06/2020 reported distended colon Technique: Supine view. Findings. Once again noted is diffuse air-filled distention of the colon particularly the transverse section.Formed fecal matter is seen in the left [...] PAGE 1 Signed Report Name: DORA JOSEPH [facility] : 1970 Age/S: 49 / M [address] Unit #: [id number] Loc: [place] [address] Phys:Verona Frost PA-C Acct: [id number] Dis Date: Status: ADM IN PHONE #: [phone] Exam Date: 01/07/2020 0712 FAX #: Reason: reassess SBO EXAMS: CPT: [id number] XR ABDOMEN 1 V 16767 Fluoro Time: DAP (Gy m2): Air Kerma (mGy): <Continued> Technologist: Bakari De Leon RT(R)(CT) Trnscb Date/Time: 01/07/2020 (1020) tUMBERTO Orig Print D/T: S: 01/07/2020 (9110) PAGE 2 Signed ReportBASIC METABOLIC PANEL 2020-01-07 [...] CA) 5.4 MG/DL 8.5-10.1 LL CBC W/AUTO [id number] 06:49:00 Test Item Value Reference Range Interpretation [...] = NO DIFF/SCN CRITERIA MDIFF) COMPREHENSIVE METABOLIC [id number] 06:10:00 Test Item Value Reference Range Interpretation [...] TOTAL (test code = ALKP) CBC W/AUTO [id number] 05:52:00 Test Item Value Reference Range Interpretation [...] DIFF/SCN CRITERIA MDIFF) - XR ABDOMEN 1 [id number] 01:30:00 Name: DORA JOSEPH [facility] : 1970 Age/S: 49 / M [address] Unit #: [id number] Loc: [place] [address] 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 Coleman 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 Acct: [id number] Dis Date: Status: ADM IN PHONE #: [phone] Exam Date: 01/06/202099 FAX #: Reason: NG Tube Placement Verification EXAMS: CPT: [id number] XR ABDOMEN 1 V 17168 Fluoro Time: DAP (Gy m2): Air Kerma [...] PAGE 1 Signed Report Name: DORA JOSEPH [facility] : 1970 Age/S: 49 / M [id number] [place] [address] Unit #: [id number] Loc: [place] [address] Phys: Ted Coleman 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 Acct: [id number] Dis Date: Status: ADM IN PHONE #: [phone] Exam Date: 01/06/2020 0100 FAX #: Reason:NG Tube Placement Verification EXAMS: CPT: [id number] XR ABDOMEN 1 V 28141 Fluoro Time: DAP (Gy m2): Air Kerma (mGy): <Continued> Technologist: RT Tatum(R) Trnscb Date/Time: 01/06/2020 (129) Herrera Orig Print D/T: S: 01/06/2020 (132) PAGE 2 Signed Report- CT ABD PELVIS W/O [id number] 19:42:00 [place]: St: REG -- Name: DORA JOSEPH [facility] : 1970 Age/S: 49/M [address] Unit: [id number] Loc: [place], [place] Phys: [place] [id number] Acct: [id number] Dis Date: Status: REG ER PHONE #: [phone] Exam Date: 12/13/20191924 FAX #: [phone] Reason: pain EXAMS: CPT CODE: [id number] CT ABD PELVIS W/O CONT 07247 Examination: CT scan abdomen and pelvis without [...] Trnscrd Dt/Tm: 12/13/2019 (1941) [email or web address] Orig Parvin gisselle D/T: S: 12/13/2019 (1945 PAGE 1 Signed ReportBASIC METABOLIC [id number] 18:49:00 Test Item Value Reference Range Interpretation [...] code = CA) 8.6 mg/dl 8.0-10.5 N [id number] 18:49:00 Test Item Value Reference Range Interpretation Comments LIPASE (test code = LIP) 97 Units/L 65.0-230.0 N CBC W/AUTO [id number] 18:38:00 Test Item Value Reference Range Interpretation [...] K/mm3 0.0-0.2 N - XR CHEST 1 [id number] 18:36:00 [place]: St: PRE -- Name: DORA JOSEPHIC [facility] : 1970 Age/S: 49/M [address] [facility] [employer] Unit #: [id number] [place]: [place]: [place] [id number] Acct: [id number] Dis Date:Status: PRE ER PHONE #: [phone] Exam Date: 12/13/20191821 FAX #: [phone] Reason: SOB EXAMS: CPT CODE: [id number] XR CHEST 1 V 95823 Examination: One view chest x-ray Location code: [...] : By: GarettVR5 PAGE 1 Signed Report [place]: St: PRE ------- Name: DORA JOSEPH [facility] : 1970 Age/S: 49/M [address] [facility] Unit #: [id number] Loc: [place], [place] Phys: [place] [id number] Acct: [id number] Dis Date: Status: PRE ER PHONE #: [phone] Exam Date: 12/13/20191821 FAX #: [phone] Reason: SOB EXAMS: CPT CODE: [id number] XR CHEST 1 V 68023 (Continued) Orig Print D/T: S: 12/13/2019 (183) [...] Received comment: User comments: Slide comments:BASIC METABOLIC [id number] 07:34:00 Test Item Value Reference Range Interpretation [...] S NOT APPLICABLE FOR DIALYSIS PATIEN TS. [id number] 07:26:00 Test Item Value Reference Range Interpretation Comments PHOSPHORUS (BEAKER) (test code = 3.1 mg/dL 2.3-4.7 604) [id number] 07:26:00 Test Item Value Reference Range Interpretation Comments MAGNESIUM (BEAKER) (test code = 1.6 mg/dL 1.6-2.6 627) RAD, ABDOMEN/KUB, 1 VIEW [id number] 07:04:00Reason for exam:->ileusFINAL REPORT Abdomen , one [...] MDReport Verified Date/Time: 04/03/2019 07:04:46 Reading Location: [facility] C013X Ortho Consult Reading Room BASIC METABOLIC [id number] 06:47:00 Test Item Value Reference Range Interpretation [...] code = 413) URINALYSIS WITH MICROSCOPIC IF [id number] 22:01:00 Test Item Value Reference Range Interpretation [...] 463) SOURCE(BEAKER) (test code = 2795) URINALYSIS [id number] 22:01:00 Test Item Value Reference Range Interpretation Comments RBC UA (BEAKER) (test code = 519) 18 /HPF WBC UA (BEAKER) (test code = 520) 1 /HPF CALCIUM OXALATE CRYSTALS (BEAKER) Occasional (test code = 518) [id number] 05:49:00 Test Item Value Reference Range Interpretation Comments PHOSPHORUS (BEAKER) (test code = 2.5 mg/dL 2.3-4.7 604) [id number] 05:49:00 Test Item Value Reference Range Interpretation Comments MAGNESIUM (BEAKER) (test code = 1.7 mg/dL 1.6-2.6 627) BASIC METABOLIC [id number] 05:49:00 Test Item Value Reference Range Interpretation [...] (BEAKER) (test code = 413) BASIC METABOLIC [id number] 06:19:00 Test Item Value Reference Range Interpretation [...] S NOT APPLICABLE FOR DIALYSIS PATIEN TS. [id number] 06:10:00 Test Item Value Reference Range Interpretation Comments MAGNESIUM (BEAKER) 1.8 mg/dL 1.6-2.6 Specimen slightly (test code = 627) hemolyzed [id number] 06:10:00 Test Item Value Reference Range Interpretation [...] (BEAKER) (test code = 413) BASIC METABOLIC [id number] 04:57:00 Test Item Value Reference Range Interpretation [...] S NOT APPLICABLE FOR DIALYSIS PATIEN TS. [id number] 04:55:00 Test Item Value Reference Range Interpretation Comments PHOSPHORUS (BEAKER) (test code = 2.6 mg/dL 2.3-4.7 604) [id number] 04:55:00 Test Item Value Reference Range Interpretation Comments MAGNESIUM (BEAKER) (test code = 1.8 mg/dL 1.6-2.6 627) CT, [id number] 14:16:00FINAL REPORT TECHNIQUE: CT of the abdomen [...] MDReport Verified Date/Time: 03/29/2019 14:16:01Reading Location: [facility] C013Y CT Body Reading Room , ABDOMEN/KUB, 1 VIEW [id number] 10:23:00Reason for exam:->evaluate ileusFINAL REPORT Technique: Supine [...] MDReport Verified Date/Time: 03/29/2019 10:23:29 Reading Location: [facility] Reading Room CBC (HEMOGRAM ONLY)2019-03-29 [...] WBC 0-0 (BEAKER) (test code = 413) [id number] 06:20:00 Test Item Value Reference Range Interpretation Comments PHOSPHORUS (BEAKER) (test code = 2.6 mg/dL 2.3-4.7 604) [id number] 06:20:00 Test Item Value Reference Range Interpretation Comments MAGNESIUM (BEAKER) (test code = 2.0 mg/dL 1.6-2.6 627) BASIC METABOLIC [id number] 06:20:00 Test Item Value Reference Range Interpretation [...] TS. RAD, ABDOMEN SERIES W/ UPRIGHT PA [id number] 22:18:00Reason for exam:- >eval ileusFINAL REPORT CLINICAL [...] evaluation with CT abdomen pelvis. Signed: [facility] Verified Date/Time: 03/28/2019 22:18:50 RAD, ABDOMEN/KUB, 1 VIEW [id number] 11:23:00Reason for exam:->abdominal distensionShould this be performed [...] Cruz Verified Date/Time: 03/28/2019 11:23:34 Reading Location: [facility] Radiology Reading Room TISSUE [id number] 09:00:00Surgical Pathology Report Case: [id number] Authorizing Provider: Graciela Garrison MD Collected: 03/25/2019 1133 Ordering Location: [facility] Received: 03/25/2019 1527 SERVICES Pathologist: [...] FOR MALIGNANCY Signing Pathologist Direct Phone Line: [phone] signed by Gold Celaya MD on 03/28/2019 at 9:00 [id number] and postop diagnosis: ileostomy statusA. End ileostomy; [...] nodes are not identified in the mesentery. Visual Design Lead sections are submitted. Section code: A, metals sales representative section of each end of first mentioned segment of small bowel; A2, metals sales representative of first mentioned segment of small bowel mucosa; A3, area of hemorrhagic mesentery of second mentioned segment of mucosa; A4, metals sales representative of hemorrhagicmucosa at open end of second portion of small bowel; A5, metals sales representative of stapled margin from second [...] 0.2 cm. No gross lesions are identified. Visual Design Lead sections are submitted. Section code: B1, proximal margin en face and tip; B2, metals sales representative cross section. CG/pl Performed.[id number] 06:23:00 Test Item Value Reference Range Interpretation Comments PHOSPHORUS (BEAKER) (test code = 2.7 mg/dL 2.3-4.7 604) [id number] 06:23:00 Test Item Value Reference Range Interpretation Comments MAGNESIUM (BEAKER) (test code = 1.9 mg/dL 1.6-2.6 627) BASIC METABOLIC [id number] 06:23:00 Test Item Value Reference Range Interpretation [...] S NOT APPLICABLE FOR DIALYSIS PATIEN TS. [id number] 08:20:00 Test Item Value Reference Range Interpretation Comments PHOSPHORUS (BEAKER) (test code = 2.6 mg/dL 2.3-4.7 604) [id number] 08:20:00 Test Item Value Reference Range Interpretation Comments MAGNESIUM (BEAKER) (test code = 1.8 mg/dL 1.6-2.6 627) BASIC METABOLIC [id number] 08:20:00 Test Item Value Reference Range Interpretation [...] S NOT APPLICABLE FOR DIALYSIS PATIEN TS. [id number] 06:06:00 Test Item Value Reference Range Interpretation Comments PHOSPHORUS (BEAKER) (test code = 4.1 mg/dL 2.3-4.7 604) [id number] 06:06:00 Test Item Value Reference Range Interpretation Comments MAGNESIUM (BEAKER) (test code = 1.8 mg/dL 1.6-2.6 627) BASIC METABOLIC [id number] 06:06:00 Test Item Value Reference Range Interpretation [...] S NOT APPLICABLE FOR DIALYSIS PATIEN TS. [id number] 06:03:00 Test Item Value Reference Range Interpretation Comments PHOSPHORUS (BEAKER) (test code = 4.2 mg/dL 2.3-4.7 604) [id number] 06:03:00 Test Item Value Reference Range Interpretation Comments MAGNESIUM (BEAKER) (test code = 2.0 mg/dL 1.6-2.6 627) BASIC METABOLIC [id number] 06:03:00 Test Item Value Reference Range Interpretation [...] WBC 0-0 (BEAKER) (test code = 413) [id number] 05:52:00 Test Item Value Reference Range Interpretation Comments PHOSPHORUS (BEAKER) (test code = 4.2 mg/dL 2.3-4.7 604) [id number] 05:52:00 Test Item Value Reference Range Interpretation Comments MAGNESIUM (BEAKER) (test code = 1.9 mg/dL 1.6-2.6 627) BASIC METABOLIC [id number] 05:52:00 Test Item Value Reference Range Interpretation [...] S NOT APPLICABLE FOR DIALYSIS PATIEN TS. [id number] 06:51:00 Test Item Value Reference Range Interpretation Comments PHOSPHORUS (BEAKER) (test code = 4.3 mg/dL 2.3-4.7 604) [id number] 06:51:00 Test Item Value Reference Range Interpretation Comments MAGNESIUM (BEAKER) (test code = 2.0 mg/dL 1.6-2.6 627) BASIC METABOLIC [id number] 06:51:00 Test Item Value Reference Range Interpretation [...] 0-0 (BEAKER) (test code = 413) TISSUE [id number] 11:50:00Surgical Pathology Report Case: [id number] Authorizing Provider: Mela Larson MD Collected: 03/18/2019 1827 Ordering Location: [facility] Received: 03/21/2019 0823 SERVICES Pathologist: Jordan Celaya MD Specimen: Small Bowel, NOS A. SMALL BOWEL, ILEOSTOMY PROLAPSE, TAKEDOWN:- ANASTOMOSIS SITE WITH ACTIVE CHRONIC INFLAMMATION AND FOCAL ISCHEMIC CHANGES - MUCOSAL RESECTION MARGINS, NEGATIVE FOR MALIGNANCY - ONE BENIGN LYMPH NODE (0/1) - NEGATIVE FOR DYSPLASIA OR MALIGNANCY Signing Pathologist Direct Phone Line: [phone] signed by Jordan Celaya MD on 03/22/2019 at 11:50 [id number] of ileostomyReceived in a container labeled "small [...] 0.5 to 1.2 cm in greatest dimension. Visual Design Lead sections are submitted as follows: A1-A2, mucosal resection margin, en face; A3-A6, metals sales representative sections of the possible ostomy stump; A7-A11, serial metals sales representative sections from mucosal resec tion margin to the possible ostomy stump; A12, two lymph nodes. TH/plPerformed. [id number] 06:58:00 Test Item Value Reference Range Interpretation Comments PHOSPHORUS (BEAKER) (test code = 3.8 mg/dL 2.3-4.7 604) [id number] 06:58:00 Test Item Value Reference Range Interpretation Comments MAGNESIUM (BEAKER) (test code = 2.0 mg/dL 1.6-2.6 627) BASIC METABOLIC [id number] 06:58:00 Test Item Value Reference Range Interpretation [...] PATIEN TS. CBC W/PLT COUNT & AUTO [id number] 05:42:00 Test Item Value Reference Range Interpretation [...] PERCENT (BEAKER) (test code = 2801) FL, [id number] 17:42:00Reason for exam:->evaluate for colon stricture as [...] Number of images obtained: 11 Signed: [facility] Verified Date/Time: 03/21/2019 17:42:21 Reading Location: [facility] B1 C013X [facility] Consult Reading Room [id number] 03:58:00 Test Item Value Reference Range Interpretation Comments PHOSPHORUS (BEAKER) (test code = 3.0 mg/dL 2.3-4.7 604) [id number] 03:58:00 Test Item Value Reference Range Interpretation Comments MAGNESIUM (BEAKER) (test code = 2.0 mg/dL 1.6-2.6 627) BASIC METABOLIC [id number] 03:58:00 Test Item Value Reference Range Interpretation [...] PATIEN TS. CBC W/PLT COUNT & AUTO [id number] 03:20:00 Test Item Value Reference Range Interpretation [...] (BEAKER) (test code = 2801) BASIC METABOLIC [id number] 06:26:00 Test Item Value Reference Range Interpretation [...] S NOT APPLICABLE FOR DIALYSIS PATIEN TS. [id number] 06:05:00 Test Item Value Reference Range Interpretation Comments PHOSPHORUS (BEAKER) (test code = 2.2 mg/dL 2.3-4.7 L 604) [id number] 06:05:00 Test Item Value Reference Range Interpretation Comments MAGNESIUM (BEAKER) (test code = 2.0 mg/dL 1.6-2.6 627) CBC W/PLT COUNT & AUTO [id number] 05:25:00 Test Item Value Reference Range Interpretation [...] 0-1 PERCENT (BEAKER) (test code = 2801) [id number] 04:31:00 Test Item Value Reference Range Interpretation Comments PHOSPHORUS (BEAKER) (test code = 3.7 mg/dL 2.3-4.7 604) [id number] 04:31:00 Test Item Value Reference Range Interpretation Comments MAGNESIUM (BEAKER) (test code = 1.9 mg/dL 1.6-2.6 627) BASIC METABOLIC [id number] 04:31:00 Test Item Value Reference Range Interpretation [...] PATIEN TS. CBC W/PLT COUNT & AUTO [id number] 04:15:00 Test Item Value Reference Range Interpretation [...] 0-1 PERCENT (BEAKER) (test code = 2801) [id number] 06:41:00 Test Item Value Reference Range Interpretation Comments PHOSPHORUS (BEAKER) (test code = 3.1 mg/dL 2.3-4.7 604) [id number] 06:41:00 Test Item Value Reference Range Interpretation Comments MAGNESIUM (BEAKER) (test code = 1.9 mg/dL 1.6-2.6 627) BASIC METABOLIC [id number] 06:41:00 Test Item Value Reference Range Interpretation [...] PATIEN TS. CBC W/PLT COUNT & AUTO [id number] 06:36:00 Test Item Value Reference Range Interpretation [...] PERCENT (BEAKER) (test code = 2801) CT, [id number] 17:04:00No PO contrastFINAL REPORT ABDOMINAL AND PELVIS [...] MDReport Verified Date/Time: 03/17/2019 17:04:19 Reading Location: [facility] B1 C013Y CT Body Reading Room XR ABDOMEN 2 [id number] 09:03:45XR ABDOMEN 2 VIEWSLOCATION: [id number]: Colstomy ProlapseCOMPARISON: Chest radiograph 04/15/2017, CT of [...] Nonspecific, nonobstructive bowel gas pattern.XR CHEST 1 [id number] 11:32:15EXAM: CHEST ONE VIEWINDICATION: Chest painCOMPARISON: None availableTECHNIQUE: AP view of the chest.FINDINGS: The cardiomediastinal silhouette is normal. The lungs are clearbilaterally. No pneumothoraxor pleural effusion is identified. Theosseous structures are unremarkable.IMPRESSION: No acute cardiopulmonary process.LOCATION: B77Dyizv Type and [id number] 21:21:00 Test Item Value Reference Range Interpretation Comments ABO type (test code = ABO) O Rh Type (test code = RH) Positive Comprehensive Metabolic [id number] 20:36:00 Test Item Value Reference Range Interpretation [...] the National Kidney Foundation,http ://nkd ep.nih.gov Alcohol/Ethanol, [id number] 20:36:00 Test Item Value Reference Range Interpretation Comments Alcohol, Ethyl <0.01 g/dL 0.00-0.01 N Intoxicated 0 .080 g/dL (test code = ETOH) or more Prothrombin [id number] 20:00:00 Test Item Value Reference Range Interpretation Comments PT (test code = PT) 10.10 seconds 9.78-13.35 N INR (test code = INR) 0.88 Ratio 0.6-1.2 N Partial Thromboplastin [id number] 20:00:00 Test Item Value Reference Range Interpretation Comments aPTT (test code = PTT) 31.50 seconds 24.39-37.25 N CBC with [id number] 19:50:00 Test Item Value Reference Range Interpretation [...] code = ABASO) 0.0 K/cumm 0.00-0.21 N 72641& PELVIS W/O [id number] 17:36:28CT ABDOMEN AND PELVIS WITHOUT CONTRAST.CLINICAL HISTORY: [...]
[2022-09-17 09:07] LABS: Absolute Lymphocytes (CBC) 2.1 K/uL (0.7-4.9); Hematocrit 31.8 % (39.6-49.0); Lymphocytes % 26.7 % (15.3-44.8); MPV 5.9 fL (7.6-11.3); RBC Red Blood Cell Count 3.62 M/uL (4.33-5.43)
[2022-09-17 09:25] LABS: Potassium 3.9 mmol/L (3.5-5.1); Troponin High Sensitivity 4.1 pg/mL (<58.9)
[2022-09-17] MEDS ORDERED: Ringers Lactate 1,000 ML IV ONE (09:47)
--- NOTE | 2022-09-17 11:23 | EDPHYS ---
Physician Documentation [facility] Name: Rico Mcneill Age: 52 yrs Sex: Male : 1970 Arrival Date: 09/17/2022 Time: 08:22 Bed 11 Private MD: ED Physician Clifton Ventura HPI: 09/17 08:50 This 52 yrs old Male presents to ER via Ambulatory with complaints of Blood Pressure jmm Problem. 08:50 This is a 52 year old male with a history of htn, that presents to the ED with jmm complaints of fatigue and low blood pressure. Denies chest pain, denies fever. Denies sob. . Historical: - Allergies: 08:50 NKDA; iw - PMHx: 08:50 Hypertensive disorder; ileostomy; iw - PSHx: 08:50 Small bowel resection with ileostomy; iw - Immunization history:: Client reports having NOT received the Covid vaccine. - Social history:: Smoking status: unknown. ROS: 08:50 Cardiovascular: Negative for chest pain, palpitations, and edema, Respiratory: Negative jmm for shortness of breath, cough, wheezing, and pleuritic chest pain. 08:50 Constitutional: Positive for fatigue. 08:50 All other systems are negative. Exam: 08:50 Constitutional: This is a well developed, well nourished patient who is awake, alert, jmm and in no acute distress. Head/Face: atraumatic. Eyes: EOMI, no conjunctival erythema appreciated ENT: Moist Mucus Membranes Neck: Trachea midline, Supple Chest/axilla: Normal chest wall appearance and motion. Cardiovascular: Regular rate and rhythm. No edema appreciated Respiratory: Normal respirations, no respiratory distress appreciated Abdomen/GI: Non distended Back: Normal ROM Skin: General appearance color normal MS/ Extremity: Moves all extremities, no obvious deformities appreciated, no edema noted to the lower extremities Neuro: Awake and alert Psych: Behavior is normal, Mood is normal, Patient is cooperative and pleasant 09:52 ECG was reviewed by the Attending Physician. [facility] Vital Signs: 08:45 BP 109 / 72; Pulse 78; Resp 16; Temp 98.0; Pulse Ox 100% on R/A; iw MDM: 08:50 Patient medically screened. [facility] 10:55 Data reviewed: vital signs, nurses notes. pj 11:21 I considered the following discharge prescriptions or medication management in the [facility] emergency department Medications were administered in the Emergency Department. See MAR. Counseling: I had a detailed discussion with the patient and/or guardian regarding: the historical points, exam findings, and any diagnostic results supporting the discharge/admit diagnosis, lab results, the need for outpatient follow up, to return to the emergency department if symptoms worsen or persist or if there are any questions or concerns that arise at home. Response to treatment: the patient's symptoms have markedly improved after treatment, and as a result, I will discharge patient. 09/17 08:52 Order name: CBC with Diff; Complete Time: 09:10 [facility] 09/17 08:52 Order name: BMP; Complete Time: : [facility] 09/17 08:52 Order name: Troponin High Sensitivity; Complete Time: : [facility] 09/17 09:53 Order name: Diet Regular; Complete Time: 09:53 ss 09/17 08:52 Order name: EKG - Nurse/Tech; Complete Time: 09:53 [facility] 09/17 08:52 Order name: Saline Lock; Complete Time: 08:57 jm EC:52 Rate is 73 beats/min. Rhythm is regular. QRS Melrude is Normal. SD interval is normal. QRS jmm interval is normal. QT interval is normal. T waves are Normal. No ST changes noted. Reviewed by me. Administered Medications: : CANCELLED (Duplicate Order): Lactated Ringers Solution 1000 ml IV at 150 ml/hr [facility] continuous 09:53 Drug: Lactated Ringers Solution 1000 ml Route: IV; Rate: 1000 bolus; Site: left wrist; ss 11:00 Follow up: IV Status: Completed infusion iw Disposition: 11:53 I agree with the assessment and plan of care. I reviewed the patient's care provided by rt the Advanced Practice Provider and agree with the diagnosis and treatment plan. Disposition Summary: 09/17/22 11:22 Discharge Ordered Location: Home [facility] Condition: Stable [facility] Diagnosis - Dehydration [facility] Followup: [facility] - With: Private Physician - When: 2 - 3 days - Reason: Recheck today's complaints, Continuance of care, Re-evaluation by your physician Discharge Instructions: - Discharge Summary Sheet [facility] - Dehydration, Adult [facility] Forms: - Medication Reconciliation Form [facility] - Thank You Letter jmm - Antibiotic Education jmm - Prescription Opioid Use renée Signatures: Dispatcher [employer] EDMiah Lawson PA PA jmm Williams, Irene, RN Eryn Carrington RN RN ss Drea Lucas RN RN ap3 Clifton Ventura MD MD rt Corrections: (The following items were deleted from the chart) 09:26 09:26 Lactated Ringers Solution 1000 ml IV at 150 ml/hr continuous ordered. renée chinchilla
--- NOTE | 2022-09-17 11:23 | ER ---
Nurse's Notes [facility] Name: Rico Mcneill Age: 52 yrs Sex: Male : 1970 Arrival Date: 09/17/2022 Time: 08:22 Bed 11 Private MD: Diagnosis: Dehydration Presentation: 09/17 08:45 Chief complaint: Patient states: my BP has been dropping and I get little dizzy and I iw just want to get it checked before I take off walking , he's going to walk to [facility]. Coronavirus screen: At this time, the client does not indicate any symptoms associated with coronavirus-19. Ebola Screen: Patient negative for fever greater than or equal to 101.5 degrees Fahrenheit, and additional compatible Ebola Virus Disease symptoms Patient denies exposure to infectious person. Patient denies travel to an Ebola-affected area in the 21 days before illness onset. No symptoms or risks identified at this time. 08:45 Method Of Arrival: Ambulatory iw 08:45 Acuity: OCTAVIO 3 iw 08:45 Initial Sepsis Screen: Does the patient meet any 2 criteria? No. Patient's initial iw sepsis screen is negative. Does the patient have a suspected source of infection? No. Patient's initial sepsis screen is negative. Risk Assessment: Do you want to hurt yourself or someone else? Patient reports no desire to harm self or others. Onset of symptoms was September 17, 2022. Historical: - Allergies: 08:50 NKDA; iw - PMHx: 08:50 Hypertensive disorder; ileostomy; iw - PSHx: 08:50 Small bowel resection with ileostomy; iw - Immunization history:: Client reports having NOT received the Covid vaccine. - Social history:: Smoking status: unknown. Screenin:24 [facility] ED Fall Risk Assessment (Adult) Score/Fall Risk Level 0 - 2 = Low Risk. Abuse iw screen: Denies threats or abuse. Nutritional screening: No deficits noted. Tuberculosis screening: No symptoms or risk factors identified. Assessment: 08:45 General: Appears in no apparent distress. Behavior is calm, cooperative. Pain: Denies iw pain. Neuro: Level of Consciousness is awake, alert, obeys commands, Oriented to person, place, time, situation. Vital Signs: 08:45 BP 109 / 72; Pulse 78; Resp 16; Temp 98.0; Pulse Ox 100% on R/A; ED Course: 08:22 Patient arrived in ED. mr 08:32 Miah Plummer PA is PHCP. [facility] 08:32 Clifton Ventura MD is Attending Physician. [facility] 08:45 Miah Plummer PA is PHCP. [facility] 08:45 Clifton Ventura MD is Attending Physician. [facility] 08:46 Triage completed. iw 08:50 Arm band placed on. iw 09:00 Inserted saline lock: 22 gauge in left hand, using aseptic technique. iw 10:23 Ashlie Goetz, RN is Primary Nurse. iw 11:33 No provider procedures requiring assistance completed. IV discontinued, intact, ap3 bleeding controlled, No redness/swelling at site. Pressure dressing applied. 11:34 Patient has correct armband on for positive identification. Bed in low position. Call ap3 light in reach. Administered Medications: 09:26 CANCELLED (Duplicate Order): Lactated Ringers Solution 1000 ml IV at 150 ml/hr [facility] continuous 09:53 Drug: Lactated Ringers Solution 1000 ml Route: IV; Rate: 1000 bolus; Site: left wrist; 11:00 Follow up: IV Status: Completed infusion iw Medication: 11:34 VIS not applicable for this client. ap3 Outcome: 11:22 Discharge ordered by . [facility] 11:34 Discharged to home ambulatory. ap3 11:34 Condition: good 11:34 Discharge instructions given to patient, Instructed on discharge instructions, follow up and referral plans. Demonstrated understanding of instructions, follow-up care. 11:34 Patient left the ED. ap3 Signatures: Miah Plummer PA PA [facility] Saira Crowe Ashlie Goetz, RN BRITTNY Eryn Aceves RN RN Drea Lucas RN RN ap3 Corrections: (The following items were deleted from the chart) 08:51 08:45 Acuity: OCTAVIO 4 iw
[2022-09-17 11:55] VITALS: BP 109/72; TEMP 98; O2SAT 100
== END 2022-09-17 11:34 | disposition home or self-care (01) ==
LOC: ER 08:19
DX: E86.0 Dehydration (principal); I10 Essential (primary) hypertension
CPT/HCPCS: 36415; 80048; 84484; 85025; J7120

== ENCOUNTER 2022-09-18 17:11 | Emergency (ER) | payer SELFPAY ==
--- OUTSIDE RECORDS SUMMARY | 2022-09-18 17:26 | XMS REPORT | Continuity of Care Document ---
:1970 Author Organization [facility] t Address [address] [place] [address] [address] [place] [address] Care Team Providers Name Role Phone UNKNOWN, REFFERING Primary Care Physician Unavailable Coco Nova Attending Clinician Unavailable Mark Perea Attending Clinician Unavailable Steve Urias Attending Clinician Unavailable YESSI RAMOS Attending Clinician Unavailable NELSON GARCIA Attending Clinician Unavailable KENDRA CARDENAS Attending Clinician Unavailable Elisha CAPONE, Aryan Garrison Attending Clinician [phone] Marty CAPONE, Dee Dee Nelson Attending Clinician Shiela CAPONE, EduarebenezerZander Attending Clinician Mick CAPONE, Pao Emerson Attending Clinician Anya CAPONE, León Shaw Attending Clinician [phone] LEÓN EARL Attending Clinician Unavailable Raven CAPONE, Teddy Attending Clinician Bernabe Calvert MD Attending Clinician [...] Attending Clinician Darrion Craig MD Attending Clinician Steve Graham Attending Clinician [phone] KARIN BASSETT Attending Clinician Unavailable Bert [...] dness dness 7-14 [facility]: [facility] 00 [place] Altered Altered Disease Active [place] bowel bowel 5-29 Health eliminatio eliminatio 00:00: [...] [facility] prolapse prolapse 00:00: Medica l 00 [place] Disorder Disorder Disease Active [facility] of stoma of stoma 9-15 Health 00:00: 00 Dehydratio Dehydratio Disease Active H arris n n Health Encounter Encounter Disease Active Compa ris for ostomy for ostomy He [facility] care care education education ALMA (acute [...] Allergie 6- Rodriguez s 00:00: Health 00 [facility] No Known DA Active U 2020-08 [facility] Allergie 1-29 [facility] 00:00: d 00 [facility] No Known DA Active U [facility] Allergie 9-05 Clear s 00:00: [facility] No Known DA Active U [facility] Allergie 9-05 Clear s 00:00: [facility] No Known DA Active U 2019-0 [facility] Allergie 7-03 Clear s 00:00: [facility] No Known DA Active U [facility] Allergie 5-14 Clear s 00:00: [facility] No Known DA Active U [facility] Allergie 7-07 [place] [facility] 00:00: d 00 Medical [place] NO KNOWN Allergy Active [facility] ALLERGIE S [...] Alcohol intake 2022-02-18 2022-02-[address] Scribbles 00:00:00 00:00:00 alcohol (finding) History [facility] 2019-03-17 2019-03-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 [facility] Alcohol Comment 00:00:00 00:00:00 Medical C enter Tobacco use and 2019-03-17 2019-03-[address] [facility] exposure 00:00:00 00:00:00 Medical Center History [facility] Food 2017-04-14 2017-04-14 1 [place] [facility] Worry 00:00:00 00:00:00 History [facility] Food 2017-04-14 2017-04-14 1 [facility] Scarcity 00:00:00 00:00:00 Sex [birth year] At [birth year] Maged Douglas alth 00:00:00 00:00:00 Smoking Status Start Date Stop Date Source Never smoker [facility] Medications Ordered Filled Start Stop [...] ferrous No Altered 325mg QD Take 1 Copma ris sulfate 325 6-30 - bowel tablet [...] intestinal ostomy loperamide 2021- No Altered 4mg Q.99174543 Take 2 [place] (IMODIUM) 2 02-20- bowel [id number] capsules Health mg capsule 00:00: 23:59 elimination [...] intestinal ostomy loperamide 2021- No Altered 4mg Q.41087313 Take 2 [place] (IMODIUM) 2 02-20-30 bowel [id number] capsules Health mg capsule 00:00: 23:59 elimination [...] intestinal ostomy loperamide 2021- No Altered 4mg Q.00179946 Take 2 [place] (IMODIUM) 2 02-20-30 bowel [id number] capsules Health mg capsule 00:00: 23:59 elimination [...] intestinal ostomy loperamide 2021- No Altered 4mg Q.96447141 Take 2 [place] (IMODIUM) 2 02-20- bowel [id number] capsules Health mg capsule 00:00: 23:59 elimination [...] intestinal ostomy loperamide 2021- No Altered 4mg Q.43805074 Take 2 [place] (IMODIUM) 2 02-20-30 bowel [id number] capsules Health mg capsule 00:00: 23:59 elimination [...] intestinal ostomy loperamide 2021- No Altered 4mg Q.20805842 Take 2 [place] (IMODIUM) 2 02-20-30 bowel [id number] capsules Health mg capsule 00:00: 23:59 elimination [...] intestinal ostomy loperamide 2021- No Altered 4mg Q.24926316 Take 2 [place] (IMODIUM) 2 02-20-30 bowel [id number] capsules Health mg capsule 00:00: 23:59 elimination [...] intestinal ostomy loperamide 2021- No Altered 4mg Q.79682393 Take 2 [place] (IMODIUM) 2 02-20 bowel [id number] capsules Health mg capsule 00:00: 23:59 elimination [...] intestinal ostomy loperamide 2021- No Altered 4mg Q.19022663 Take 2 [place] (IMODIUM) 2 02-20 bowel [id number] capsules Health mg capsule 00:00: 23:59 elimination [...] intestinal ostomy loperamide 2021- No Altered 4mg Q.61567513 Take 2 [place] (IMODIUM) 2 02-20 bowel [id number] capsules Health mg capsule 00:00: 23:59 elimination 3D by mouth 3 00 :00 due to times intestinal daily ostomy (before meals) for 30 days tamsulosin 2021- No Acute .4mg Take 1 Compa ris (FLOMAX) 6-30 07-30 kidney capsule by He alth 0.4 mg 00:00: 23:59 injury mouth capsule 00 :00 every evening for 30 days psyllium 2021- No Altered 1{packe Take 1 [place] (METAMUCIL) 02-20 bowel t} Packet by H ealth 6 gram PwPk 00:00: 23:59 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 loperamide 2021- No Altered 4mg Q.15274404 Take 2 [place] (IMODIUM) 2 02-20 bowel [id number] capsules Health mg capsule 00:00: 23:59 elimination [...] intestinal ostomy loperamide 2021- No Altered 4mg Q.46861339 Take 2 [place] (IMODIUM) 2 02-20 bowel [id number] capsules Health mg capsule 00:00: 23:59 elimination [...] intestinal ostomy loperamide 2021- No Altered 4mg Q.57183293 Take 2 [place] (IMODIUM) 2 02-20 bowel [id number] capsules Health mg capsule 00:00: 23:59 elimination [...] intestinal ostomy loperamide 2021- No Altered 4mg Q.68812461 Take 2 [place] (IMODIUM) 2 02-20 bowel [id number] capsules Health mg capsule 00:00: 23:59 elimination [...] intestinal ostomy loperamide 2021- No Altered 4mg Q.15509105 Take 2 [place] (IMODIUM) 2 02-20 bowel [id number] capsules Health mg capsule 00:00: 23:59 elimination [...] intestinal ostomy loperamide 2021- No Altered 4mg Q.38102898 Take 2 [place] (IMODIUM) 2 02-2030 bowel [id number] capsules Health mg capsule 00:00: 23:59 elimination [...] intestinal ostomy loperamide 2021- No Altered 4mg Q.07956969 Take 2 [place] (IMODIUM) 2 02-20 bowel [id number] capsules Health mg capsule 00:00: 23:59 elimination [...] intestinal ostomy loperamide 2021- No Altered 4mg Q.99225511 Take 2 [place] (IMODIUM) 2 02-20-30 bowel [id number] capsules Health mg capsule 00:00: 23:59 elimination [...] intestinal ostomy loperamide 2021- No Altered 4mg Q.00228515 Take 2 [place] (IMODIUM) 2 02-20-30 bowel [id number] capsules Health mg capsule 00:00: 23:59 elimination [...] intestinal ostomy loperamide 2021- No Altered 4mg Q.18263420 Take 2 [place] (IMODIUM) 2 02-20-30 bowel [id number] capsules Health mg capsule 00:00: 23:59 elimination [...] intestinal ostomy loperamide 2021- No Altered 4mg Q.06748025 Take 2 [place] (IMODIUM) 2 02-20 07-30 bowel [id number] capsules Health mg capsule 00:00: 23:59 elimination [...] 3 oral liquid 00 times daily nutritional 2021- Yes Malnutritio 1{packa Take 1 [place] supplemment [...] nutritional 2021-0 Yes Malnutritio 1{packa Take 1 [place] supplemment 6-21 n due to ge} Package [...] 3 oral liquid 00 times daily psyllium 2- No Altered 1{packe Take 1 [place] (METAMUCIL) 02-11-30 bowel t} Packet by [facility] 6 gram PwPk 00:00: 00:00 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 psyllium 2021- No Altered 1{packe Take 1 [place] (METAMUCIL) 02-11-30 bowel t} [facility] P[facility] 00:00: 00:00 elimination [...] [place] (METAMUCIL) 02-11-30 bowel t} [facility] PwPk 00:00: 00:00 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 psyllium 2021- No Altered 1{packe Take 1 [place] (METAMUCIL) 02-11-30 bowel t} [facility] 6 gram PwPk 00:00: 00:00 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 psyllium 2- No Altered 1{packe Take 1 [place] (METAMUCIL) 02-11-30 bowel t} Packet by [facility] 6 gram PwPk 00:00: 00:00 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 psyllium 2021- No Altered 1{packe Take 1 [place] (METAMUCIL) 02-11-30 bowel t} [facility] gram PwPk 00:00: 00:00 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 psyllium 2021- No Altered 1{packe Take 1 [place] (METAMUCIL) 02-11-30 bowel t} Packet by [facility] 6 gram PwPk 00:00: 00:00 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 psyllium 2021- No Altered 1{packe Take 1 [place] (METAMUCIL) 02-11-30 bowel t} [facility] gram PwPk 00:00: 00:00 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 psyllium 0 2021- No Altered 1{packe Take 1 [place] (METAMUCIL) 02-11-30 bowel t} [facility] 6 gram PwPk 00:00: 00:00 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 psyllium 0 2021- No Altered 1{packe Take 1 [place] (METAMUCIL) 02-11-30 bowel t} [facility] 6 gram PwPk 00:00: 00:00 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 psyllium 2021-0 2021- No Altered 1{packe Take 1 [place] (METAMUCIL) 02-11-30 bowel t} [facility] 6 gram PwPk 00:00: 00:00 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 psyllium 2021- No Altered 1{packe Take 1 [place] (METAMUCIL) 02-11-30 bowel t} [facility] 6 gram PwPk 00:00: 00:00 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 psyllium 2021- No Altered 1{packe Take 1 [place] (METAMUCIL) 02-11-30 bowel t} [facility] 6 gram PwPk 00:00: 00:00 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 psyllium 2021- No Altered 1{packe Take 1 [place] (METAMUCIL) 02-1130 bowel t} [facility] 6 gram PwPk 00:00: 00:00 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 psyllium 2021- No Altered 1{packe Take 1 [place] (METAMUCIL) 02-1130 bowel t} [facility] PwPk 00:00: 00:00 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 psyllium 2021- No Altered 1{packe Take 1 [place] (METAMUCIL) 02-1130 bowel t} [facility] gram PwPk 00:00: 00:00 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 psyllium 2021- No Altered 1{packe Take 1 [place] (METAMUCIL) 02-1130 bowel t} [facility] gram PwPk 00:00: 00:00 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 ascorbic 2021- No Altered 250mg QD Take 1 Momin rris acid, 01-21 bowel tablet by [employer] vitamin C, 00:00: 23:59 elimination mouth 250 mg 00 :00 due to daily for tablet intestinal 60 days ostomy magnesium 2021- No Altered 800mg Q.5D Take 2 H arris oxide 01-21-30 bowel tablets by [employer] (MAG-OX) 00:00: 23:59 elimination mouth 2 [...] H arris oxide 01-21-30 bowel tablets by [employer] (MAG-OX) 00:00: 23:59 elimination mouth 2 [...] days ostomy loperamide 2021- No Altered 4mg Q.31736655 Take 2 [place] (IMODIUM) 2 01-21 bowel [id number] capsules [facility] mg capsule 00:00: 00:00 elimination 3D by [...] days ostomy loperamide 2021- No Altered 4mg Q.94886572 Take 2 [place] (IMODIUM) 2 01-21-30 bowel [id number] capsules Health mg capsule 00:00: 00:00 elimination [...] days ostomy loperamide 2021- No Altered 4mg Q.68779127 Take 2 [place] (IMODIUM) 2 01-21-30 bowel [id number] capsules Health mg capsule 00:00: 00:00 elimination [...] days ostomy loperamide 2021- No Altered 4mg Q.15488800 Take 2 [place] (IMODIUM) 2 01-21 bowel [id number] capsules Health mg capsule 00:00: 00:00 elimination [...] days ostomy loperamide 2021- No Altered 4mg Q.73259574 Take 2 [place] (IMODIUM) 2 01-21 bowel [id number] capsules Health mg capsule 00:00: 00:00 elimination [...] days ostomy loperamide 2021- No Altered 4mg Q.38633149 Take 2 [place] (IMODIUM) 2 01-21 bowel [id number] capsules Health mg capsule 00:00: 00:00 elimination [...] 60 days ostomy loperamide No Altered 4mg Q.64569225 Take 2 [place] (IMODIUM) 2 01-21 bowel [id number] capsules Health mg capsule 00:00: 00:00 elimination [...] days ostomy loperamide 2021- No Altered 4mg Q.07557491 Take 2 [place] (IMODIUM) 2 01-21 bowel [id number] capsules Health mg capsule 00:00: 00:00 elimination [...] days ostomy loperamide 2021- No Altered 4mg Q.00492870 Take 2 [place] (IMODIUM) 2 01-21 bowel [id number] capsules Health mg capsule 00:00: 00:00 elimination [...] days ostomy loperamide 2021- No Altered 4mg Q.13352722 Take 2 [place] (IMODIUM) 2 01-21 bowel [id number] capsules Health mg capsule 00:00: 00:00 elimination [...] days ostomy loperamide 2021- No Altered 4mg Q.93524869 Take 2 [place] (IMODIUM) 2 01-21 bowel [id number] capsules Health mg capsule 00:00: 00:00 elimination [...] days ostomy loperamide 2021- No Altered 4mg Q.[id number] Take 2 [place] (IMODIUM) 2 01-21 bowel [id number] capsules Health mg capsule 00:00: 00:00 elimination [...] days ostomy loperamide 2021- No Altered 4mg Q.10701183 Take 2 [place] (IMODIUM) 2 01-21 bowel [id number] capsules Health mg capsule 00:00: 00:00 elimination [...] days ostomy loperamide 2021- No Altered 4mg Q.99110268 Take 2 [place] (IMODIUM) 2 01-21 bowel [id number] capsules Health mg capsule 00:00: 00:00 elimination [...] days ostomy loperamide 2021- No Altered 4mg Q.78231919 Take 2 [place] (IMODIUM) 2 01-21 bowel [id number] capsules Health mg capsule 00:00: 00:00 elimination [...] days ostomy loperamide 2021- No Altered 4mg Q.72935819 Take 2 [place] (IMODIUM) 2 01-21 bowel [id number] capsules Health mg capsule 00:00: 00:00 elimination [...] days ostomy loperamide 2021- No Altered 4mg Q.76803150 Take 2 [place] (IMODIUM) 2 01-21 bowel [id number] capsules Health mg capsule 00:00: 00:00 elimination [...] 60 days ostomy loperamide No Altered 4mg Q.27868314 Take 2 [place] (IMODIUM) 2 01-21 bowel [id number] capsules Health mg capsule 00:00: 00:00 elimination [...] days ostomy loperamide 2021- No Altered 4mg Q.17912621 Take 2 [place] (IMODIUM) 2 01-21 bowel [id number] capsules Health mg capsule 00:00: 00:00 elimination [...] 60 days ostomy loperamide No Altered 4mg Q.56550043 Take 2 [place] (IMODIUM) 2 01-21 bowel [id number] capsules Health mg capsule 00:00: 00:00 elimination [...] days ostomy loperamide 2021- No Altered 4mg Q.77420247 Take 2 [place] (IMODIUM) 2 01-21 bowel [id number] capsules Health mg capsule 00:00: 00:00 elimination 3D by mouth 3 00 :00 due to times intestinal daily ostomy (before meals) for 30 days psyllium 2021- No Altered 1{packe Q.89197063 Take 1 [place] (METAMUCIL) 01-21 bowel t} [id number] Packet by [employer] 6 gram PwPk 00:00: 00:00 elimination 3D mouth 3 00 :00 due to times intestinal daily ostomy (before meals) for 90 days psyllium 2021- No Altered 1{packe Q.03395131 Take 1 [place] (METAMUCIL) 01-21 bowel t} [id number] Packet by [employer] 6 gram PwPk 00:00: 00:00 elimination 3D mouth 3 00 :00 due to times intestinal daily ostomy (before meals) for 90 days psyllium 2021- No Altered 1{packe Q.34385997 Take 1 [place] (METAMUCIL) 01-21 bowel t} [id number] Packet by [facility] 6 gram PwPk 00:00: 00:00 elimination 3D mouth 3 00 :00 due to times intestinal daily ostomy (before meals) for 90 days psyllium 2021- No Altered 1{packe Q.46780655 Take 1 [place] (METAMUCIL) 01-21 bowel t} [id number] Packet by [employer] 6 gram PwPk 00:00: 00:00 elimination 3D mouth 3 00 :00 due to times intestinal daily ostomy (before meals) for 90 days psyllium 2021- No Altered 1{packe Q.68024844 Take 1 [place] (METAMUCIL) 01-21 bowel t} [id number] Packet by [employer] 6 gram PwPk 00:00: 00:00 elimination 3D mouth 3 00 :00 due to times intestinal daily ostomy (before meals) for 90 days psyllium 2021- No Altered 1{packe Q.11374521 Take 1 [place] (METAMUCIL) 01-21 bowel t} [id number] Packet by [facility] 6 gram PwPk 00:00: 00:00 elimination 3D mouth 3 00 :00 due to times intestinal daily ostomy (before meals) for 90 days psyllium 2021- No Altered 1{packe Q.34874175 Take 1 [place] (METAMUCIL) 01-21 bowel t} [id number] Packet by [employer] 6 gram PwPk 00:00: 00:00 elimination 3D mouth 3 00 :00 due to times intestinal daily ostomy (before meals) for 90 days psyllium 2021- No Altered 1{packe Q.64706719 Take 1 [place] (METAMUCIL) 01-21 bowel t} [id number] Packet by [employer] 6 gram PwPk 00:00: 00:00 elimination 3D mouth 3 00 :00 due to times intestinal daily ostomy (before meals) for 90 days psyllium 2021- No Altered 1{packe Q.96507476 Take 1 [place] (METAMUCIL) 01-21 bowel t} [id number] Packet by [facility] 6 gram PwPk 00:00: 00:00 elimination 3D mouth 3 00 :00 due to times intestinal daily ostomy (before meals) for 90 days psyllium 2021- No Altered 1{packe Q.[id number] Take 1 [place] (METAMUCIL) 01-21 bowel t} [id number] Packet by [employer] 6 gram PwPk 00:00: 00:00 elimination 3D mouth 3 00 :00 due to times intestinal daily ostomy (before meals) for 90 days psyllium 2021- No Altered 1{packe Q.90832583 Take 1 [place] (METAMUCIL) 01-21 bowel t} [id number] Packet by [employer] 6 gram PwPk 00:00: 00:00 elimination 3D mouth 3 00 :00 due to times intestinal daily ostomy (before meals) for 90 days psyllium 2021- No Altered 1{packe Q.05013328 Take 1 [place] (METAMUCIL) 01-21 bowel t} [id number] Packet by [employer] 6 gram PwPk 00:00: 00:00 elimination 3D mouth 3 00 :00 due to times intestinal daily ostomy (before meals) for 90 days psyllium 2021- No Altered 1{packe Q.88062060 Take 1 [place] (METAMUCIL) 01-21 bowel t} [id number] Packet by [employer] 6 gram PwPk 00:00: 00:00 elimination 3D mouth 3 00 :00 due to times intestinal daily ostomy (before meals) for 90 days psyllium 2021- No Altered 1{packe Q.92242033 Take 1 [place] (METAMUCIL) 01-21 bowel t} [id number] Packet by [employer] 6 gram PwPk 00:00: 00:00 elimination 3D mouth 3 00 :00 due to times intestinal daily ostomy (before meals) for 90 days psyllium 2021- No Altered 1{packe Q.60432458 Take 1 [place] (METAMUCIL) 01-21 bowel t} [id number] Packet by [employer] 6 gram PwPk 00:00: 00:00 elimination 3D mouth 3 00 :00 due to times intestinal daily ostomy (before meals) for 90 days psyllium 2021- No Altered 1{packe Q.21404449 Take 1 [place] (METAMUCIL) 01-21 bowel t} [id number] Packet by [employer] 6 gram PwPk 00:00: 00:00 elimination 3D mouth 3 00 :00 due to times intestinal daily ostomy (before meals) for 90 days psyllium 2021- No Altered 1{packe Q.04535321 Take 1 [place] (METAMUCIL) 01-21 bowel t} [id number] Packet by [employer] 6 gram PwPk 00:00: 00:00 elimination 3D mouth 3 00 :00 due to times intestinal daily ostomy (before meals) for 90 days psyllium 2021- No Altered 1{packe Q.07864457 Take 1 [place] (METAMUCIL) 01-21 bowel t} [id number] Packet by [employer] 6 gram PwPk 00:00: 00:00 elimination 3D mouth 3 00 :00 due to times intestinal daily ostomy (before meals) for 90 days psyllium 2021- No Altered 1{packe Q.93562061 Take 1 [place] (METAMUCIL) 01-21 bowel t} [id number] Packet by [employer] 6 gram PwPk 00:00: 00:00 elimination 3D mouth 3 00 :00 due to times intestinal daily ostomy (before meals) for 90 days psyllium 2021- No Altered 1{packe Q.36481456 Take 1 [place] (METAMUCIL) 01-21 bowel t} [id number] Packet by [employer] 6 gram PwPk 00:00: 00:00 elimination 3D mouth 3 00 :00 due to times intestinal daily ostomy (before meals) for 90 days psyllium 2021- No Altered 1{packe Q.60877390 Take 1 [place] (METAMUCIL) 01-21 bowel t} [id number] Packet by [facility] 6 [...] Momin rris (FLOMAX) 01-12- prostatic capsule by [facility] [...] Momin rris (FLOMAX) 01-12- prostatic capsule by [facility] [...] Momin rris (FLOMAX) 01-12- prostatic capsule by [facility] [...] No Malnutritio 1{packa Take 1 [place] supplemment 01-11-21 n due to ge} Package by Health (BOOST) 00:00: 00:00 starvation mouth 3 oral liquid 00 :00 times daily nutritional 2021- No Malnutritio 1{packa Take 1 [place] supplemment 01-11-21 n due to ge} Package by Health [...] (DAILY 04-14- abuse, in tablet by [facility] [employer]) 00:00: 00:00 remission mouth tablet 00 :00 daily. thiamine, 2021- No Alcohol 100mg QD Take 1 H arris B-1, 100 mg 04-14-21 abuse, in tablet by Health tablet 00:00: 00:00 remission mouth 00 :00 daily. multivitami 2021- No Alcohol 1{tbl} QD Take 1 Lynne n (DAILY 04-14 abuse, in tablet by [employer]) 00:00: 00:00 remission mouth tablet 00 :00 daily. 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 multivitami 2021- No Alcohol 1{tbl} QD Take 1 Lynne n (DAILY 04-14- abuse, in tablet by [employer]) 00:00: 00:00 remission mouth tablet 00 :00 daily. thiamine, 2021- No Alcohol 100mg QD Take 1 H arris B-1, 100 mg 04-14-21 abuse, in tablet by Health tablet 00:00: 00:00 remission mouth 00 :00 daily. multivitami 2021- No Alcohol 1{tbl} QD Take 1 Lynne n (DAILY 04-14- abuse, in tablet by [employer]) 00:00: 00:00 remission mouth tablet 00 :00 daily. thiamine, 2021- No Alcohol 100mg QD Take 1 H arris B-1, 100 mg 04-14-21 abuse, in tablet by Health tablet 00:00: 00:00 remission mouth 00 :00 daily. multivitami 2021- No Alcohol 1{tbl} QD Take 1 Lynne n (DAILY 04-14- abuse, in tablet by [employer]) 00:00: 00:00 remission mouth tablet 00 :00 [...] n (DAILY 04-14 abuse, in tablet by [employer]) 00:00: 00:00 remission mouth tablet 00 :00 daily. thiamine, 2021- No Alcohol 100mg QD Take 1 H arris B-1, 100 mg 04-14-21 abuse, in tablet by Health tablet 00:00: 00:00 remission mouth 00 :00 daily. multivitami 2021- No Alcohol 1{tbl} QD Take 1 Lynne n (DAILY 04-14 abuse, in tablet by [employer] VITES) 00:00: 00:00 remission mouth tablet 00 :00 daily. thiamine, 2021- No Alcohol 100mg QD Take 1 H arris B-1, 100 mg 04-14- abuse, in tablet by Health tablet 00:00: 00:00 remission mouth 00 :00 daily. multivitami 2021- No Alcohol 1{tbl} QD Take 1 Lynne n (DAILY 04-14-21 abuse, in tablet by [employer]) 00:00: 00:00 remission mouth tablet 00 [...] (DAILY 04-14 05-21 abuse, in tablet by [employer] VITES) 00:00: 00:00 remission mouth tablet 00 :00 daily. thiamine, 2021- No Alcohol 100mg QD Take 1 H arris B-1, 100 mg 04-14 05-21 abuse, in tablet by Health tablet 00:00: 00:00 remission mouth 00 :00 daily. multivitami 2021- No Alcohol 1{tbl} QD Take 1 Lynne n (DAILY 04-14- abuse, in tablet by [employer]) 00:00: 00:00 remission mouth tablet 00 :00 daily. thiamine, 2021- No Alcohol 100mg QD Take 1 H arris B-1, 100 mg 04-14-21 abuse, in tablet by Health tablet 00:00: 00:00 remission mouth 00 :00 daily. multivitami 2021- No Alcohol 1{tbl} QD Take 1 Lynne n (DAILY 04-14- abuse, in tablet by [employer]) 00:00: 00:00 remission mouth tablet 00 :00 daily. thiamine, 2021- No Alcohol 100mg QD Take 1 H arris B-1, 100 mg 04-14 05-21 abuse, in tablet by Health tablet 00:00: 00:00 remission mouth 00 :00 daily. multivitami 2021- No Alcohol 1{tbl} QD Take 1 Lynne n (DAILY 04-14 05-21 abuse, in tablet by [employer]) 00:00: 00:00 remission mouth tablet 00 [...] (DAILY 04-14 05-21 abuse, in tablet by [employer] VITES) 00:00: 00:00 remission mouth tablet 00 :00 daily. thiamine, 2021- No Alcohol 100mg QD Take 1 H arris B-1, 100 mg 04-14 05-21 abuse, in tablet by Health tablet 00:00: 00:00 remission mouth 00 :00 daily. multivitami 2021- No Alcohol 1{tbl} QD Take 1 Lynne n (DAILY 04-14 05-21 abuse, in tablet by [employer] VITES) 00:00: 00:00 remission mouth tablet 00 :00 daily. thiamine, 2021- No Alcohol 100mg QD Take 1 H arris B-1, 100 mg 04-14 05-21 abuse, in tablet by Health tablet 00:00: 00:00 remission mouth 00 :00 daily. multivitami 2021- No Alcohol 1{tbl} QD Take 1 Lynne n (DAILY 04-14 05-21 abuse, in tablet by [employer] VITES) 00:00: 00:00 remission mouth tablet [...] n (DAILY 04-14 abuse, in tablet by [employer]) 00:00: 00:00 remission mouth tablet 00 :00 daily. 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 multivitami 2021- No Alcohol 1{tbl} QD Take 1 Lynne n (DAILY 04-14 abuse, in tablet by [employer]) 00:00: 00:00 remission mouth tablet 00 :00 daily. Immunizations Ordered Immunization Filled Immunization Date Status Commen ts Source Name Name [facility] 2017-04-14 Completed [facility] 00:00:00 PPD [...] Systolic blood 2022-03-13 15:33:00 94 mm[Hg] [facility] pressure Diastolic blood 2022-03-13 15:33:00 62 mm[Hg] [facility] pressure Heart rate 2022-03-13 15:33:00 109 /min [facility] Body temperature 2022-03-13 15:33:00 36.67 Tasia [facility] Respiratory rate 2022-03-13 15:33:00 20 /min [facility] Body height 2022-03-13 15:33:00 185.4 cm [facility] ealt Body weight 2022-03-13 15:33:00 66.679 kg [facility] BMI 2022-03-13 15:33:00 19.39 kg/m2 [facility] Oxygen saturation in 2022-03-13 15:33:00 100 /min [facility] Arterial blood by Pulse oximetry Systolic blood 2022-03-09 11:00:00 107 mm[Hg] [facility] Diastolic blood 2022-03-09 11:00:00 66 mm[Hg] [facility] Heart rate 2022-03-09 11:00:00 58 /min [facility] Body temperature 2022-03-09 11:00:00 36.22 Tasia [facility] Respiratory rate 2022-03-09 11:00:00 16 /min [facility] Oxygen saturation in 2022-03-09 11:00:00 100 /min [facility] Arterial blood by Medical Ce nter Pulse oximetry Body height 2022-03-06 12:05:00 185.4 cm [facility] Body weight 2022-03-06 12:05:00 65.772 kg [facility] BMI 2022-03-06 12:05:00 19.13 kg/m2 [facility] Procedures Procedure Date / Time Performing Clinician Source Performed BASIC METABOLIC PANEL 2022-03-07 05:51:00 Shiela [facility] HEPATIC FUNCTION PANEL 2022-03-07 05:51:00 [facility] W/PLT COUNT & AUTO 2022-03-07 05:51:00 Shiela [facility] CBC W/PLT COUNT & AUTO 2022-03-07 05:51:00 [facility] 2022-03-06 18:23:00 [facility] SARS-COV2/RT-PCR ([facility] 2022-03-06 17:36:00 [facility] TSH/FREE T4 IF INDICATED 2022-03-06 14:18:00 [facility] 2022-03-06 14:18:00 Aryan Tello [facility] ED ECG INTERPRETATION 2022-03-06 13:48:12 Aryan Tello [facility] XR CHEST 1 VIEW PORTABLE 2022-03-06 13:42:00 Aryan Tello [facility] / BEDSIDE [facility] B-TYPE NATRIURETIC FACTOR 2022-03-06 13:23:00 Aryan Tello [facility] (BNP) [facility] CBC W/PLT COUNT & AUTO 2022-03-06 13:23:00 Aryan Tello [facility] DIFFERENTIAL [facility] COMPREHENSIVE METABOLIC 2022-03-06 13:23:00 Aryan Tello [facility] PANEL [facility] HIGH SENSITIVITY TROPONIN 2022-03-06 13:23:00 Aryan Tello [facility] MAGNESIUM 2022-03-06 13:23:00 Aryan Tello [facility] PHOSPHORUS 2022-03-06 13:23:00 Aryan Tello [facility] LACTIC ACID, VENOUS 2022-03-06 13:23:00 Aryan Tello [facility] CREATINE KINASE (CK) 2022-03-06 13:23:00 Aryan Tello [facility] CBC W/PLT COUNT & AUTO 2022-03-06 13:23:00 Aryan Tello [facility] DIFFERENTIAL [facility] ECG 12-LEAD 2022-03-06 12:12:56 Unknown, H[facility] ECG 12-LEAD 2022-03-06 12:12:56 Unknown, H[facility] ECG 12-LEAD 2022-03-06 12:12:56 Unknown, Hl7 [facility] EKG-SCANNED 2022-03-06 00:00:00 Provider, [facility] CBC (WITHOUT 2022-02-20 05:10:00 Rufino Lazaro DIFFERENTIAL) BASIC METABOLIC PANEL 2022-02-20 05:10:00 Rufino Lazaro Health MAGNESIUM 2022-02-20 05:10:00 Rufino Lazaro PHOSPHORUS 2022-02-20 05:10:00 Rufino Lazaro INFUSION PUMP 2022-02-19 19:03:50 Rufino Lazaro COMPREHENSIVE METABOLIC 2022-02-19 06:35:00 Kobe Blake [facility] PANEL CBC/DIFF 2022-02-19 06:35:00 Kobe Blake alth PHOSPHORUS 2022-02-19 06:35:00 Kobe Blake alth CBC 2022-02-19 06:35:00 Kobe Blake alth URINALYSIS W/REFLEX TO 2022-02-19 00:34:00 Kobe Blake [facility] URINE CULTURE URINALYSIS 2022-02-19 00:34:00 Chadd Palacios URINE CULTURE COLLECTION 2022-02-19 00:34:00 Chadd Palacios [facility] KIT SARS-COV-2, FLU A/B, RSV 2022-02-18 19:00:00 Chadd Palacios [facility] CORONAVIRUS, COVID-19, 2022-02-18 19:00:00 Chadd Palacios [facility] OLENA XRAY CHEST 1 VIEW 2022-02-18 15:23:00 Roz Scales [facility] CONSULT CLINICAL CASE 2022-02-18 14:50:50 Roz Scales Health MANAGEMENT (RN/SW) CBC/DIFF 2022-02-18 14:16:00 [facility] BASIC METABOLIC PANEL 2022-02-18 14:16:00 [facility] MAGNESIUM 2022-02-18 14:16:00 Albab, Susana [facility] PHOSPHORUS 2022-02-18 14:16:00 Albab, Susana [facility] CREATINE KINASE (CK) 2022-02-18 14:16:00 Albab [facility] CBC 2022-02-18 14:16:00 Albab, Susana [facility] BASIC METABOLIC PANEL 2022-02-11 03:34:00 Antonieta [facility] MAGNESIUM 2022-02-11 03:34:00 Teresa Al[facility] PHOSPHORUS 2022-02-11 03:34:00 [facility] CBC (WITHOUT 2022-02-11 03:34:00 [facility] DIFFERENTIAL) CBC/DIFF 2022-02-10 03:39:00 [facility]OLIC PANEL 2022-02-10 03:39:00 Antonieta [facility] CBC 2022-02-10 03:39:00 [facility] THYROID STIMULATING 2022-02-10 03:39:00 Jamilahfrederic [facility] HORMONE (TSH) FREE T4 2022-02-10 03:39:00 Teresa Alves [facility] th CBC/DIFF 2022-02-09 04:38:00 [facility] BASIC METABOLIC PANEL 2022-02-09 04:38:00 Antonieta [facility] CBC 2022-02-09 04:38:00 Meghan Islas h CORTISOL, TOTAL 2022-02-08 11:37:00 Mrai Meier [facility] GLUCOSE POC 2022-02-08 08:07:00 Meghan Islas h CBC (WITHOUT 2022-02-08 04:00:00 Mari Meier [facility] ealt DIFFERENTIAL) COMPREHENSIVE METABOLIC 2022-02-08 04:00:00 Mari Meier [facility] PANEL PHOSPHORUS 2022-02-08 04:00:00 Mari Meier ealth MAGNESIUM 2022-02-08 04:00:00 [facility] PT/INR 2022-02-08 04:00:00 [facility] URINALYSIS W/REFLEX TO 2022-02-07 18:06:00 Areli Arciniega [facility] URINE CULTURE URINALYSIS 2022-02-07 18:06:00 Areli Arciniega alth URINE CULTURE COLLECTION 2022-02-07 18:06:00 Areli Arciniega [facility] KIT ELECTROLYTES, URINE 2022-02-07 18:06:00 Jyoti Carrillo [facility] OSMOLALITY, URINE 2022-02-07 18:06:00 Jyoti Carrillo [facility] SARS-COV-2, FLU A/B, RSV 2022-02-07 18:05:00 Jyoti Carrillo [facility] CORONAVIRUS, COVID-19, 2022-02-07 18:05:00 Jyoti Carrillo [facility] OLENA NUTRITION CONSULT 2022-02-07 17:43:36 Mari Meier [facility] ASSESSMENT BASIC METABOLIC PANEL 2022-02-07 17:18:00 Jyoti Carrillo [facility] LACTIC ACID 2022-02-07 14:04:00 Areli Arciniega alth CBC/DIFF 2022-02-07 14:03:00 Areli Arciniega alth BASIC METABOLIC PANEL 2022-02-07 14:03:00 Areli Arciniega [facility] LIVER PROFILE 2022-02-07 14:03:00 Areli Arciniega alth LIPASE 2022-02-07 14:03:00 Areli Arciniega alth MAGNESIUM 2022-02-07 14:03:00 Areli Arciniega alth PHOSPHORUS 2022-02-07 14:03:00 Areli Arciniega alth TROPONIN I 2022-02-07 14:03:00 Areli Arciniega alth CBC 2022-02-07 14:03:00 Areli Arciniega alth 12 LEAD EKG 2022-01-21 15:46:10 Ori Goldberg [facility] h CBC/DIFF 2022-01-21 04:11:00 LindseyNoeh P [facility] MAGNESIUM 2022-01-21 04:11:00 Lindsey Steve P [facility] PHOSPHORUS 2022-01-21 04:11:00 Lindsey, Steve P [facility] BASIC METABOLIC PANEL 2022-01-21 04:11:00 Ori Goldberg [facility] CBC 2022-01-21 04:11:00 Lindsey Steve P [facility] CBC/DIFF 2022-01-20 04:37:00 Lindsey Steve P [facility] MAGNESIUM 2022-01-20 04:37:00 Lindsey Steve P [facility] PHOSPHORUS 2022-01-20 04:37:00 Lindsey Steve P [facility] BASIC METABOLIC PANEL 2022-01-20 04:37:00 Lindsey, [facility] CBC 2022-01-20 04:37:00 Lindsey, Steve P [facility] MAGNESIUM 2022-01-19 18:09:00 Lindsey, Steve P [facility] PHOSPHORUS 2022-01-19 18:09:00 Lindsey, Steve P [facility] BASIC METABOLIC PANEL 2022-01-19 18:09:00 Lindsey, [facility] CORTISOL, TOTAL 2022-01-19 18:09:00 Karin Bassett [facility] URINALYSIS W/REFLEX TO 2022-01-19 17:22:00 Lindsey, Steve Esther [facility] URINE CULTURE URINALYSIS 2022-01-19 17:22:00 LindseySteve [facility] URINE CULTURE COLLECTION 2022-01-19 17:22:00 Steve Lucas [facility] KIT COMPUTED TOMOGRAPHY 2022-01-19 13:29:00 [facility] PELVIS WITHOUT CONTRAST CBC/DIFF 2022-01-19 04:44:00 LindseySteve [facility] CBC 2022-01-19 04:44:00 [facility] DIFFERENTIAL, MANUAL (NO 2022-01-19 04:44:00 LindseySteve [facility] MORPHOLOGY)-WA BASIC METABOLIC PANEL 2022-01-18 17:15:00 Lindsey, Steve P [facility] CBC/DIFF 2022-01-18 04:46:00 LindseyNoeh Esther [facility] MAGNESIUM 2022-01-18 04:46:00 Lindsey Steve Santana [facility] PHOSPHORUS 2022-01-18 04:46:00 [facility] BASIC METABOLIC PANEL 2022-01-18 04:46:00 Ori Goldberg [facility] CBC 2022-01-18 04:46:00 [facility]/AB COMBO ROUTINE 2022-01-18 04:46:00 Karin Bassett [facility] SCREENING ENTERIC PATHOGENS NUCLEIC 2022-01-18 03:25:00 Karin Bassett [facility] ACID TEST BASIC METABOLIC PANEL 2022-01-18 00:29:00 Ori Goldberg [facility] BASIC METABOLIC PANEL 2022-01-17 17:07:00 [facility], [facility] BASIC METABOLIC PANEL 2022-01-17 13:15:00 [facility] Steve [facility] CALPROTECTIN FECAL 2022-01-17 12:38:00 LindseySteve herrera [facility] ealth FECAL LEUKOCYTES 2022-01-17 12:38:00 [facility] T-TRANSGLUTAMINASE IGA 2022-01-17 12:22:00 Steve Lucas [facility] BASIC METABOLIC PANEL 2022-01-17 08:51:00 LindseySteve child Alexi s Health BASIC METABOLIC PANEL 2022-01-17 04:47:00 Lindsey, Steve [facility] CBC/DIFF 2022-01-17 04:47:00 Steve [facility] MAGNESIUM 2022-01-17 04:47:00 Steve Lucas [facility] PHOSPHORUS 2022-01-17 04:47:00 LindseySteve child [facility] CBC 2022-01-17 04:47:00 LindseySteve child [facility] BASIC METABOLIC PANEL 2022-01-17 00:08:00 Steve Lucas Frankie s [facility] 12 LEAD EKG 2022-01-16 21:23:25 Steve Lucas [facility] BASIC METABOLIC PANEL 2022-01-16 21:08:00 LindseySteve child Frankie s [facility] XRAY CHEST 2 VIEWS 2022-01-16 19:56:00 Steve Lucas [facility] ealth IP CONSULT TO PHYSICAL 2022-01-16 19:17:17 Steve Lucas [facility] THERAPY CONSULT CLINICAL CASE 2022-01-16 19:17:17 Steve Lucasashia s Health MANAGEMENT (RN/SW) SEQUENTIAL COMPRESSION 2022-01-16 19:17:17 Steve [facility] PUMP SEQUENTIAL COMPRESSION 2022-01-16 19:17:17 [facility] PUMP SODIUM, URINE, RANDOM 2022-01-16 16:00:00 Kevin Nieves [facility] CREATININE, URINE, RANDOM 2022-01-16 16:00:00 Kevin Nieves [facility] OSMOLALITY, URINE 2022-01-16 16:00:00 Kevin Nieves [facility] SARS-COV-2, FLU A/B, RSV 2022-01-16 15:20:00 Kevin Nieves [facility] CORONAVIRUS, COVID-19, 2022-01-16 15:20:00 Kevin Nieves [facility] OLENA FOLIC ACID 2022-01-16 14:13:00 Kevin Nieves ealth CREATININE POC 2022-01-16 13:55:00 Raymon Martin [facility] BMP POC 2022-01-16 13:46:00 [facility]mon [facility] CBC/DIFF 2022-01-16 12:12:00 Raymon [facility] CBC 2022-01-16 12:12:00 Raymon Martin Healt [facility] BASIC METABOLIC PANEL 2022-01-16 12:11:00 Sadiq Vargas [facility] MAGNESIUM 2022-01-16 12:11:00 Sadiq Vargas [facility] lt VITAMIN B12 2022-01-16 12:11:00 Kevin Nieves ealt OSMOLALITY,SERUM 2022-01-16 12:11:00 Kevin Nieves [facility] INFUSION PUMP 2022-01-11 09:21:05 Helene Ring [facility] GLUCOSE POC 2022-01-11 07:54:00 Helene Ring [facility] BASIC METABOLIC PANEL 2022-01-11 04:07:00 Merissa Richards [facility] MAGNESIUM 2022-01-11 04:07:00 [facility] 2022-01-11 04:07:00 Merissa Richards Healt h CBC/DIFF 2022-01-11 04:06:00 [facility] IRON PROFILE 2022-01-11 04:06:00 [facility] FOLIC ACID 2022-01-11 04:06:00 Merissa Richards Healt h CBC 2022-01-11 04:06:00 [facility] 2022-01-10 18:16:00 Helene Ring [facility] URINALYSIS 2022-01-10 16:10:00 [facility] 2022-01-10 16:10:00 Merissa [facility] SARS-COV-2, FLU A/B, RSV 2022-01-10 15:54:00 Merissa Richards [facility] CORONAVIRUS, COVID-19, 2022-01-10 15:54:00 Antoine Hester [facility] OLENA BASIC METABOLIC PANEL 2022-01-10 15:54:00 Merissa Richards [facility] VITAMIN B12 2022-01-10 15:54:00 Merissa Richards [facility] h VBG POC 2022-01-10 11:14:00 Dia Jewell philipp [facility] CBC/DIFF 2022-01-10 11:13:00 [facility] BASIC METABOLIC PANEL 2022-01-10 11:13:00 Antoine Hester [facility] LACTIC ACID 2022-01-10 11:13:00 [facility] CBC 2022-01-10 11:13:00 Antoine Hester [facility] h LIVER PROFILE 2022-01-10 11:13:00 Merissa Richards [facility] CK, TOTAL 2022-01-10 11:13:00 [facility] FERRITIN 2022-01-10 11:13:00 Brodie Richardsa Felicita [facility] h CREATINE KINASE MB (CKMB) 2022-01-10 11:13:00 Merissa Richards [facility] XRAY CHEST 2 VIEWS 2022-01-08 21:50:14 Tanja Sebastian [facility] CBC/DIFF 2022-01-08 21:27:00 Tanja Sebastian [facility] BASIC METABOLIC PANEL 2022-01-08 21:27:00 Tanja Sebastian [facility] LIVER PROFILE 2022-01-08 21:27:00 Tanja Sebastian [facility] CK, TOTAL 2022-01-08 21:27:00 Tanja Sebastian [facility] lt TROPONIN I 2022-01-08 21:27:00 Tanja Sebastian [facility] lt CBC 2022-01-08 21:27:00 Tanja Sebastian [facility] CREATINE KINASE MB (CKMB) 2022-01-08 21:27:00 Tanja Sebastian [facility] 12 LEAD EKG 2022-01-08 20:59:56 Tanja Sebastian [facility] [id number] 2020-01-09 00:00:[id number] [facility] Plan of Care Planned Activity Planned Date Details Comments Source Future Scheduled 2029-03-23 Screening for malignant [facility] Test 00:00:00 neoplasm of colon [facility] (procedure) [code = 950219897] Future Scheduled 2029-03-23 Screening for malignant [facility] Test 00:00:00 neoplasm of colon [facility] (procedure) [code = 276340451] Future Scheduled 2029-03-23 Screening for malignant [facility] Test 00:00:00 neoplasm of colon [facility] (procedure) [code = 866049828] Future Scheduled 2029-03-23 Screening for malignant [facility] Test 00:00:00 neoplasm of colon [facility] (procedure) [code = 191979451] Future Scheduled 2029-03-23 Screening for malignant [facility] Test 00:00:00 neoplasm of colon [facility] (procedure) [code = 643885414] Future Scheduled 2029-03-23 Screening for malignant [facility] Test 00:00:00 neoplasm of colon [facility] (procedure) [code = 508443606] Future Scheduled 2029-03-23 Screening for malignant [facility] Test 00:00:00 neoplasm of colon [facility] (procedure) [code = 599833543] Future Scheduled 2029-03-23 Screening for malignant [facility] Test 00:00:00 neoplasm of colon [facility] (procedure) [code = 200574035] Future Scheduled 2029-03-23 Screening for malignant [facility] Test 00:00:00 neoplasm of colon [facility] (procedure) [code = 394773082] Future Scheduled 2029-03-23 Screening for malignant [facility] Test 00:00:00 neoplasm of colon [facility] (procedure) [code = 156172469] Future Scheduled 2029-03-23 Screening for malignant [facility] Test 00:00:00 neoplasm of colon [facility] (procedure) [code = 954338907] Future Scheduled 2029-03-23 Screening for malignant [facility] Test 00:00:00 neoplasm of colon [facility] (procedure) [code = 642599127] Future Scheduled 2029-03-23 Screening for malignant [facility] Test 00:00:00 neoplasm of colon [facility] (procedure) [code = 166863369] Future Scheduled 2029-03-23 Screening for malignant [facility] Test 00:00:00 neoplasm of colon Medical [facility] (procedure) [code = 291658307] Future Scheduled 2029-03-23 Screening for malignant [facility] Test 00:00:00 neoplasm of colon Medical [facility] (procedure) [code = 106776058] Future Scheduled 2029-03-23 Screening for malignant [facility] Test 00:00:00 neoplasm of colon Medical Ce [facility] (procedure) [code = 892548646] Future Scheduled 2029-03-23 Screening for malignant [facility] Test 00:00:00 neoplasm of colon Medical Ce [facility] (procedure) [code = 851266009] Future Scheduled 2029-03-23 Screening for malignant [facility] Test 00:00:00 neoplasm of colon Medical Ce [facility] (procedure) [code = 536021071] Future Scheduled 2029-03-23 Screening for malignant [facility] Test 00:00:00 neoplasm of colon Medical Ce [facility] (procedure) [code = 044218427] Future Scheduled 2029-03-23 Screening for malignant [facility] Test 00:00:00 neoplasm of colon Medical Ce [facility] (procedure) [code = 707669720] Future Scheduled 2029-03-23 Screening for malignant [facility] Test 00:00:00 neoplasm of colon Medical Ce [facility] (procedure) [code = 899954167] Future Scheduled 2029-03-23 Screening for malignant [facility] Test 00:00:00 neoplasm of colon Medical Ce [facility] (procedure) [code = 043375998] Future Scheduled 2029-03-23 Screening for malignant [facility] Test 00:00:00 neoplasm of colon Medical Ce [facility] (procedure) [code = 661440624] Future Scheduled 2029-03-23 Screening for malignant [facility] Test 00:00:00 neoplasm of colon Medical Ce [facility] (procedure) [code = 089832606] Future Scheduled 2029-03-23 Screening for malignant [facility] Test 00:00:00 neoplasm of colon Medical Ce [facility] (procedure) [code = 408758835] Future Scheduled 2029-03-23 Screening for malignant [facility] Test 00:00:00 neoplasm of colon Medical Ce [facility] (procedure) [code = 870139533] Future Scheduled 2029-03-23 Screening for malignant [facility] Test 00:00:00 neoplasm of colon Medical [facility] (procedure) [code = 999352827] Future Scheduled 2029-03-23 Screening for malignant [facility] Test 00:00:00 neoplasm of colon Medical Ce [facility]ter (procedure) [code = 288027838] Future Scheduled 2029-03-23 Screening for malignant [facility] Test 00:00:00 neoplasm of colon Medical Ce [facility] (procedure) [code = 146742717] Future Scheduled 2029-03-23 Screening for malignant [facility] Test 00:00:00 neoplasm of colon Medical Ce [facility] (procedure) [code = 876397775] Future Scheduled 2029-03-23 Screening for malignant [facility] Test 00:00:00 neoplasm of colon Medical Ce [facility] (procedure) [code = 947358016] Future Scheduled 2029-03-23 Screening for malignant [facility] Test 00:00:00 neoplasm of colon Medical Ce [facility]ter (procedure) [code = 806922471] Future Scheduled 2029-03-23 Screening for malignant [facility] Test 00:00:00 neoplasm of colon Medical Ce [facility] (procedure) [code = 574370562] Future Scheduled 2029-03-23 Screening for malignant [facility] Test 00:00:00 neoplasm of colon Medical Ce [facility]ter (procedure) [code = 740193980] Future Scheduled 2029-03-23 Screening for malignant [facility] Test 00:00:00 neoplasm of colon Medical Ce [facility] (procedure) [code = 673070159] Future Scheduled 2029-03-23 Screening for malignant [facility] Test 00:00:00 neoplasm of colon Medical Ce [facility]ter (procedure) [code = 125520724] Future Scheduled 2029-03-23 Screening for malignant [facility] Test 00:00:00 neoplasm of colon Medical Ce [facility] (procedure) [code = 926460625] Future Scheduled 2029-03-23 Screening for malignant [facility] Test 00:00:00 neoplasm of colon Medical Ce [facility]ter (procedure) [code = 207458751] Future Scheduled 2029-03-23 Screening for malignant [facility] Test 00:00:00 neoplasm of colon Medical Ce [facility] (procedure) [code = 796353135] Future Scheduled 2029-03-23 Screening for malignant [facility] Test 00:00:00 neoplasm of colon Medical Ce [facility]ter (procedure) [code = 708761182] Future Scheduled 2029-03-23 Screening for malignant [facility] Test 00:00:00 neoplasm of colon Medical Ce [facility]ter (procedure) [code = 775019713] Future Scheduled 2029-03-23 Screening for malignant [facility] Test 00:00:00 neoplasm of colon Medical Ce [facility]ter (procedure) [code = 784020801] Future Scheduled 2029-03-23 Screening for malignant [facility] Test 00:00:00 neoplasm of colon Medical Ce [facility]ter (procedure) [code = 951318654] Future Scheduled 2029-03-23 Screening for malignant [facility] Test 00:00:00 neoplasm of colon Medical Ce [facility]ter (procedure) [code = 210011198] Future Scheduled 2029-03-23 Screening for malignant [facility] Test 00:00:00 neoplasm of colon Medical Ce [facility]ter (procedure) [code = 768331328] Future Scheduled 2022-08-[address] [...] 00:00:00 neoplasm of colon (procedure) [code = 356366933] Future Scheduled 2020-02-14 Screening for malignant [facility] 00:00:00 neoplasm of colon (procedure) [code = 088928326] Future Scheduled 2020-02-14 Screening for malignant [facility] Test 00:00:00 neoplasm of colon (procedure) [code = 598697469] Future Scheduled 2020-02-14 Screening for malignant [facility] Test 00:00:00 neoplasm of colon (procedure) [code = 699681334] Future Scheduled 2020-02-14 Screening for malignant [facility] Test 00:00:00 neoplasm of colon (procedure) [code = 511475224] Future Scheduled 2020-02-14 Screening for malignant [facility] Test 00:00:00 neoplasm of colon (procedure) [code = 080456887] Future Scheduled 2020-02-14 Screening for malignant [facility] Test 00:00:00 neoplasm of colon (procedure) [code = 607187849] Future Scheduled 2020-02-14 Screening for malignant [facility] Test 00:00:00 neoplasm of colon (procedure) [code = 764643739] Future Scheduled 2020-02-14 Screening for malignant [facility] Test 00:00:00 neoplasm of colon (procedure) [code = 651926389] Future Scheduled 2020-02-14 Screening for malignant [facility] Test 00:00:00 neoplasm of colon (procedure) [code = 833463499] Future Scheduled 2020-02-14 Screening for malignant [facility] Test 00:00:00 neoplasm of colon (procedure) [code = 111568657] Future Scheduled 2020-02-14 Screening for malignant [facility] 00:00:00 neoplasm of colon (procedure) [code = 012840137] Future 2020-02-14 Screening for malignant [facility] 00:00:00 neoplasm of colon (procedure) [code = 565307619] Future Scheduled 2020-02-14 Screening for malignant [facility] 00:00:00 neoplasm of colon (procedure) [code = 499522776] Future Scheduled 2020-02-14 Screening for malignant [facility] 00:00:00 neoplasm of colon (procedure) [code = 136761163] Future Scheduled 2020-02-14 Screening for malignant [facility] 00:00:00 neoplasm of colon (procedure) [code = 888970489] Future Scheduled 2020-02-14 Screening for malignant [facility] 00:00:00 neoplasm of colon (procedure) [code = 477457268] Future Scheduled 2020-02-14 Screening for malignant [facility] 00:00:00 neoplasm of colon (procedure) [code = 022797740] Future Scheduled 2020-02-14 Screening for malignant [facility] 00:00:00 neoplasm of colon (procedure) [code = 126171543] Future Scheduled 2020-02-14 Screening for malignant [facility] 00:00:00 neoplasm of colon (procedure) [code = 320922127] Future Scheduled 2020-02-14 SHINGLES VACCINES ([address] [facility] 00:00:00 2) [code = [facility] V[facility]ES (1 of 2)] Future Scheduled 2020-02-14 Screening for malignant [facility] 00:00:00 neoplasm of colon (procedure) [code = 577344798] Future Scheduled 2020-02-14 SHINGLES VACCINES (1 of [...] [facility] 00:00:00 [code = 48513884] Medical Ce nter Future Scheduled 2005 Lipid panel (procedure) [facility] 00:00:00 [code = 49941227] Medical Ce nter Future Scheduled 2005 Lipid panel (procedure) [facility] 00:00:00 [code = 94580385] Medical Ce nter Future Scheduled 2005 Lipid panel (procedure) [facility] 00:00:00 [code = 65392444] Medical Ce nter Future Scheduled 2005 Lipid panel (procedure) [facility] 00:00:00 [code = 76737878] Medical Ce nter Future Scheduled 2005 Lipid panel (procedure) [facility] 00:00:00 [code = 80332723] Medical Ce nter Future Scheduled 2005 Lipid panel (procedure) [facility] 00:00:00 [code = 10954454] Medical Ce nter Future Scheduled 2005 Lipid panel (procedure) [facility] 00:00:00 [code = 10446872] Medical Ce nter Future Scheduled 2005 Lipid panel (procedure) [facility] 00:00:00 [code = 34826237] Medical Ce nter Future Scheduled 2005 Lipid panel (procedure) [facility] 00:00:00 [code = 24137677] Medical Ce nter Future Scheduled 2005 Lipid panel (procedure) [facility] 00:00:00 [code = 21522083] Medical Ce nter Future Scheduled 2005 Lipid panel (procedure) [facility] 00:00:00 [code = 50630600] Medical Ce nter Future Scheduled 2005 Lipid panel (procedure) [facility] 00:00:00 [code = 50574432] Medical Ce nter Future Scheduled 2005 Lipid panel (procedure) [facility] 00:00:00 [code = 87937840] Medical Ce nter Future Scheduled 2005 Lipid panel (procedure) [facility] 00:00:00 [code = 06402919] Medical Ce nter Future Scheduled 2005 Lipid panel (procedure) [facility] 00:00:00 [code = 94164561] Medical Ce nter Future Scheduled 2005 Lipid panel (procedure) [facility] 00:00:00 [code = 89565286] Medical Ce nter Future Scheduled 2005 Lipid panel (procedure) [facility] 00:00:00 [code = 79232487] Medical Ce nter Future Scheduled 2005 Lipid panel (procedure) [facility] 00:00:00 [code = 59815883] Medical Ce nter Future Scheduled 2005 Lipid panel (procedure) [facility] 00:00:00 [code = 60230829] Medical Ce nter Future Scheduled 2005 Lipid panel (procedure) [facility] 00:00:00 [code = 77405382] Medical Ce nter Future Scheduled 2005 Lipid panel (procedure) [facility] 00:00:00 [code = 86482995] Medical Ce nter Future Scheduled 2005 Lipid panel (procedure) [facility] 00:00:00 [code = 77334434] Medical Ce nter Future Scheduled 1989 DTAP/TDAP/TD [...] and Screening (12+)] Future Scheduled 1970 COVID-19 VACCINE (#1) [facility] [...] colon Medical Ce nter (procedure) [code = 479288956] Future Scheduled 1970 Screening for malignant [facility] 00:00:00 neoplasm of colon Medical Ce nter (procedure) [code = 772196376] Future Scheduled 1970 Sigmoidoscopy [facility]code = [facility]] [facility] Cent[facility] r Future Scheduled 1970 CT Colonography (combo) [facility] 00:00:00 [code = CT Colonography [facility] (combo)] Future Scheduled 1970 Screening for malignant [facility] 00:00:00 neoplasm of colon Medical Ce nter (procedure) [code = 943994073] Future Scheduled 1970 Screening for malignant [facility] 00:00:00 neoplasm of colon Medical Ce nter (procedure) [code = 093675205] Future Scheduled 1970 Sigmoidoscopy [facility]code = [facility] S[facility]oidoscopy] Medical Cente r Future Scheduled 1970 CT Colonography (combo) [facility] 00:00:00 [code = CT Colonography [facility] ([facility])] Future Scheduled 1970 Screening for malignant [facility] 00:00:00 neoplasm of colon Medical Ce nter (procedure) [code = 596710359] Future Scheduled 1970 Screening for malignant [facility] 00:00:00 neoplasm of colon Medical Ce nter (procedure) [code = 285032949] Future Scheduled 1970 Sigmoidoscopy [facility]code [facility] 00:[facility] S[facility]oidoscopy] Medical Angele r Future Scheduled 1970 CT Colonography (combo) [facility] 00:00:00 [code = CT Colonography [facility] (combo)] Future Scheduled 1970 Screening for malignant [facility] 00:00:00 neoplasm of colon Medical Ce nter (procedure) [code = 367174987] Future Scheduled 1970 Screening for malignant [facility] 00:00:00 neoplasm of colon Medical Ce nter (procedure) [code = 197928708] Future Scheduled 1970 Sigmoidoscopy [facility]code [facility] 00:[facility] Sigmoidoscopy] Medical Angele r Future Scheduled 1970 CT Colonography (combo) [facility] 00:00:00 [code = CT Colonography [facility] (combo)] Future Scheduled 1970 Screening for malignant [facility] 00:00:00 neoplasm of colon Medical Ce nter (procedure) [code = 486897001] Future Scheduled 1970 Screening for malignant [facility] 00:00:00 neoplasm of colon Medical Ce nter (procedure) [code = 272989910] Future Scheduled 1970 Sigmoidoscopy [facility]code = [facility] 00:[facility] Sigmoidoscopy] Medical Seda r Future Scheduled 1970 CT Colonography (combo) [facility] 00:00:00 [code = CT Colonography [facility] (combo)] Future Scheduled 1970 Screening for malignant [facility] 00:00:00 neoplasm of colon Medical Ce nter (procedure) [code = 530049039] Future Scheduled 1970 Screening for malignant [facility] 00:00:00 neoplasm of colon Medical Ce nter (procedure) [code = 486495077] Future Scheduled 1970 Sigmoidoscopy [facility]code [facility] S[facility]oidoscopy] Medical Angele r Future Scheduled 1970 CT Colonography (combo) [facility] 00:00:00 [code = CT Colonography [facility] (combo)] Future Scheduled 1970 Screening for malignant [facility] 00:00:00 neoplasm of colon Medical Ce nter (procedure) [code = 848292585] Future Scheduled 1970 Screening for malignant [facility] 00:00:00 neoplasm of colon Medical Ce nter (procedure) [code = 916142836] Future Scheduled 1970 Sigmoidoscopy [facility]code = [facility] 00:[facility] S[facility]oidoscopy] Medical Cente r Future Scheduled 1970 CT Colonography (combo) [facility] 00:00:00 [code = CT Colonography [facility] (combo)] Future Scheduled 1970 Screening for malignant [facility] 00:00:00 neoplasm of colon Medical Ce nter (procedure) [code = 906696633] Future Scheduled 1970 Screening for malignant [facility] 00:00:00 neoplasm of colon Medical Ce nter (procedure) [code = 063026480] Future Scheduled 1970 Sigmoidoscopy [facility]code = [facility] S[facility]oidoscopy] Medical Cente r Future Scheduled 1970 CT Colonography (combo) [facility] 00:00:00 [code = CT Colonography [facility] (combo)] Future Scheduled 1970 Screening for malignant [facility] 00:00:00 neoplasm of colon Medical Ce nter (procedure) [code = 611571863] Future Scheduled 1970 Screening for malignant [facility] 00:00:00 neoplasm of colon Medical Ce nter (procedure) [code = 012103883] Future Scheduled 1970 Sigmoidoscopy [code = [facility] 00:[facility] Sigmoidoscopy] Medical Cente r Future Scheduled 1970 CT Colonography (combo) [facility] 00:00:00 [code = CT Colonography [facility] (combo)] Future Scheduled 1970 Screening for malignant [facility] 00:00:00 neoplasm of colon Medical Ce nter (procedure) [code = 567247122] Future Scheduled 1970 Screening for malignant [facility] 00:00:00 neoplasm of colon Medical Ce nter (procedure) [code = 522483056] Future Scheduled 1970 Sigmoidoscopy [code [facility] 00:[facility] Sigmoidoscopy] Medical Cente r Future Scheduled 1970 CT Colonography (combo) [facility] 00:00:00 [code = CT Colonography [facility] (combo)] Future Scheduled 1970 Screening for malignant [facility] 00:00:00 neoplasm of colon Medical Ce nter (procedure) [code = 348252034] Future Scheduled 1970 Screening for malignant [facility] 00:00:00 neoplasm of colon Medical Ce nter (procedure) [code = 207201551] Future Scheduled 1970 Sigmoidoscopy [facility]code [facility] 00:[facility] Sigmoidoscopy] Medical Angele r Future Scheduled 1970 CT Colonography (combo) [facility] 00:00:00 [code = CT Colonography [facility] (combo)] Future Scheduled 1970 Screening for malignant [facility] 00:00:00 neoplasm of colon Medical Ce nter (procedure) [code = 944844686] Future Scheduled 1970 Screening for malignant [facility] 00:00:00 neoplasm of colon Medical Ce nter (procedure) [code = 992615539] Future Scheduled 1970 Sigmoidoscopy [facility]code [facility] 00:[facility] Sigmoidoscopy] Medical Angele r Future Scheduled 1970 CT Colonography (combo) [facility] 00:00:00 [code = CT Colonography [facility] (combo)] Future Scheduled 1970 Screening for malignant [facility] 00:00:00 neoplasm of colon Medical Ce nter (procedure) [code = 607501634] Future Scheduled 1970 Screening for malignant [facility] 00:00:00 neoplasm of colon Medical Ce nter (procedure) [code = 598577695] Future Scheduled 1970 Sigmoidoscopy [facility]code = [facility] 00:[facility] Sigmoidoscopy] Medical Angele r Future Scheduled 1970 CT Colonography (combo) [facility] 00:00:00 [code = CT Colonography [facility] ([facility])] Future Scheduled 1970 Screening for malignant [facility] 00:00:00 neoplasm of colon Medical Ce nter (procedure) [code = 063117331] Future Scheduled 1970 Screening for malignant [facility] 00:00:00 neoplasm of colon Medical Ce nter (procedure) [code = 072007389] Future Scheduled 1970 Sigmoidoscopy [facility]code = [facility] 00:[facility] Sigmoidoscopy] Medical Cente r Future Scheduled 1970 CT Colonography (combo) [facility] 00:00:00 [code = CT Colonography [facility] (combo)] Future Scheduled 1970 Screening for malignant [facility] 00:00:00 neoplasm of colon Medical Ce nter (procedure) [code = 158467199] Future Scheduled 1970 Screening for malignant [facility] 00:00:00 neoplasm of colon Medical Ce nter (procedure) [code = 496592434] Future Scheduled 1970 Sigmoidoscopy [facility]code = [facility] 00:[facility] Sigmoidoscopy] Medical Cente r Future Scheduled 1970 CT Colonography (combo) [facility] 00:00:00 [code = CT Colonography [facility] (com[facility])] Future Scheduled 1970 Screening for malignant [facility] 00:00:00 neoplasm of colon Medical Ce nter (procedure) [code = 954766471] Future Scheduled 1970 Screening for malignant [facility] 00:00:00 neoplasm of colon Medical Ce nter (procedure) [code = 604872640] Future Scheduled 1970 Sigmoidoscopy [facility]code = [facility] 00:[facility] Sigmoidoscopy] Medical Cente r Future Scheduled 1970 CT Colonography (combo) [facility] 00:00:00 [code = CT Colonography [facility] (com[facility])] Future Scheduled 1970 Screening for malignant [facility] 00:00:00 neoplasm of colon Medical Ce nter (procedure) [code = 359129517] Future Scheduled 1970 Screening for malignant [facility] 00:00:00 neoplasm of colon Medical Ce nter (procedure) [code = 119330760] Future Scheduled 1970 Sigmoidoscopy [facility]code = [facility] 00:[facility] Sigmoidoscopy] Medical Angele r Future Scheduled 1970 CT Colonography (combo) [facility] 00:00:00 [code = CT Colonography [facility] (combo)] Future Scheduled 1970 Screening for malignant [facility] 00:00:00 neoplasm of colon Medical Ce nter (procedure) [code = 832427749] Future Scheduled 1970 Screening for malignant [facility] 00:00:00 neoplasm of colon Medical Ce nter (procedure) [code = 378691620] Future Scheduled 1970 Sigmoidoscopy [code = [facility] 00:[facility] Sigmoidoscopy] Medical Angele r Future Scheduled 1970 CT Colonography (combo) [facility] 00:00:00 [code = CT Colonography [facility] (combo)] Future Scheduled 1970 Screening for malignant [facility] 00:00:00 neoplasm of colon Medical Ce nter (procedure) [code = 620162423] Future Scheduled 1970 Screening for malignant [facility] 00:00:00 neoplasm of colon Medical Ce nter (procedure) [code = 856143910] Future Scheduled 1970 Sigmoidoscopy [facility]code [facility] 00:[facility] Sigmoidoscopy] Medical Angele r Future Scheduled 1970 CT Colonography (combo) [facility] 00:00:00 [code = CT Colonography [facility] (combo)] Future Scheduled 1970 Screening for malignant [facility] 00:00:00 neoplasm of colon Medical Ce nter (procedure) [code = 011332552] Future Scheduled 1970 Screening for malignant [facility] 00:00:00 neoplasm of colon Medical Ce nter (procedure) [code = 445989079] Future Scheduled 1970 Sigmoidoscopy [code = [facility] 00:00:00 Sigmoidoscopy] Medical Angele r Future Scheduled 1970 CT Colonography (combo) [facility] 00:00:00 [code = CT Colonography [facility] (combo)] Future Scheduled 1970 Screening for malignant [facility] 00:00:00 neoplasm of colon Medical Ce nter (procedure) [code = 099731213] Future Scheduled 1970 Screening for malignant [facility] 00:00:00 neoplasm of colon Medical Ce nter (procedure) [code = 759169299] Future Scheduled 1970 Sigmoidoscopy [code = [facility] [...] colon Medical Ce nter (procedure) [code = 007150053] Future Scheduled 1970 Screening for malignant [facility] 00:00:00 neoplasm of colon Medical Ce nter (procedure) [code = 592958954] Future Scheduled 1970 S[facility]oidoscopy [facility]code [facility] S[facility]oscopy] Medical Cente r Encounters Start End Encounter Admission Attending Care Care Encounter Source Date/Time Date/Time Type Type Clinicians Facility Department ID 2020-02-23 Inpatient HCAPM LENNY [id number] [facility] 18:42:00 89 [facility] 2020-02-17 Inpatient EM Avtar, HCAPM MAS [id number] [facility] 00:22:00 Oladipo 75 [facility] 2020-01-05 Inpatient UR Perea, HCAPM [id number].01 [id number] [facility] 20:23:00 Mark 40 [facility] 2019-12-13 Inpatient HCAMN JULIA [id number] [facility] 17:52:00 47 [facility] 2022-03-29 2022-03-29 Emergency EM White, HCACL AERS [id number] [facility] 14:26:00 16:45:00 Steve 28 [facility] 2022-03-29 2022-03-29 Emergency EM White, HCACL HCACL [id number] [facility] 14:26:00 16:45:00 Steve [id number] [facility] 2022-03-25 2022-03-[address] [facility] MED [id number] [facility] 13:38:00 10:16:00 , YESSI 2022-03-15 2022-03-18 Emergency E RADHA [facility] MED [id number] [facility] 13:36:00 18:59:00 NELSON 2022-03-13 2022-03-13 Emergency [facility] [id number] [place] 15:33:00 20:25:00 [facility] 2022-03-13 2022-03-13 Emergency [facility] [id number] [place] 15:33:00 20:25:00 [facility] 2022-03-13 2022-03-13 Outpatient RONALD, [facility] [id number] [place] 00:00:00 00:00:00 [facility] 2022-03-06 2022-03-09 [facility] [id number] 12:16:00 12:55:00 Encounter Dee Dee Montalvo Fang-Ying M edical Heinen, Allison P. [facility] León Odell Colin 2022-03-06 2022-03-09 Inpatient ER [id number] [facility] 12:16:00 12:55:00 2022-03-06 2022-03-09 [facility] [id number] 12:16:00 12:55:00 Encounter Dee Dee Montalvo Fang-Ying M edical Heinen, Allison P. [facility] 2022-03-06 2022-03-06 Outpatient [facility] [id number] [address] [place] [address] 00:00:00 23:59:00 [facility] 2022-03-06 2022-03-06 Orders [facility] [id number] 00:00:00 00:00:00 [facility] 2022-03-06 2022-03-06 Travel [facility] [id number] [facility] 00:00:00 00:00:00 [facility] 2022-03-06 2022-03-06 Orders [facility] [id number] 00:00:00 00:00:00 Only [facility] 2022-03-06 2022-03-06 Travel [facility] [id number] [facility] 00:00:00 00:00:00 [facility] 2022-02-18 2022-02-20 Emergency Teddy Carbajal [facility] [id number] [place] 13:58:00 11:55:00 Bernabe Calvert Ashish D Cavazos, Roberto H 2022-02-18 2022-02-20 Emergency Teddy Cabrajal [facility] [id number] [place] 13:58:00 11:55:00 [facility] Kobe Blake 2022-02-18 2022-02-18 Emergency RAVEN, [facility] [id number] [place] 15:19:05 15:23:18 [facility] 2022-02-18 2022-02-18 Outpatient [facility] [id number] [place] 13:58:00 13:58:00 [facility] 2022-02-18 2022-02-18 Outpatient DENIZ [facility] [id number] [place] 00:00:00 00:00:00 , OSCAR Daniels 2022-02-07 2022-02-11 [facility] [id number] [place] 13:40:00 13:22:00 Encounter Antonieta [facility] 2022-02-07 2022-02-11 [facility] [id number] [place] 13:40:00 13:22:00 Encounter Antonieta [facility] 2022-02-07 2022-02-07 Outpatient 1 MEGHAN ISLAS [facility] [id number] [place] 13:40:00 13:40:00 [facility] 2022-01-30 2022-01-30 [facility] [id number] [facility] 17:02:00 18:29:00 Dwain 53 [facility] 2022-01-30 2022-01-30 [facility] [id number] 17:02:00 18:29:00 Dwain [id number] [facility] 2022-01-22 2022-01-22 Emergency [facility] [id number] [place] 17:24:00 20:39:00 [facility] 2022-01-22 2022-01-22 Emergency [facility] [id number] [place] 17:24:00 20:39:00 [facility] 2022-01-16 2022-01-21 Emergency Raymon Martin [facility] [id number] [place] 11:04:00 18:08:00 [facility] 2022-01-16 2022-01-21 Emergency Raymon Martin [facility] [id number] [place] 11:04:00 18:08:00 [facility] 2022-01-19 2022-01-19 Outpatient [facility] [id number] [place] 12:34:08 13:29:31 [facility] 2022-01-16 2022-01-16 Outpatient [facility] [id number] [place] 19:42:28 20:01:28 [facility] 2022-01-16 2022-01-16 Outpatient 1 [facility] [id number] [place] 11:04:00 11:04:00 KARIN Frances 2022-01-10 2022-01-11 [facility] [id number] [place] 10:58:00 11:20:00 [facility] 2022-01-10 2022-01-11 Emergency Brianna [facility] [id number] [place] 10:58:00 11:20:00 María ElenaHelene lucio [facility] 2022-01-10 2022-01-10 Outpatient 1 [facility] [id number] [place] 10:58:00 10:58:00 [facility] 2022-01-08 2022-01-09 Emergency [facility] [id number] [place] 17:57:00 02:50:00 [facility] 2022-01-08 2022-01-09 Emergency [facility] [id number] [place] 17:57:00 02:50:00 [facility] 2022-01-08 2022-01-08 Emergency [facility] [id number] [place] 21:40:34 21:50:19 [facility] 2021-09-23 2021-09-23 Emergency EM Amita Raffaele [facility] AERS [id number] [facility] 19:35:00 21:10:[address] [place] [address] 2021-09-13 2021-09-13 Emergency EM Amita Raffaele [facility] AERS [id number] [facility] 14:57:00 16:37:00 06 [facility] 2021-07-27 2021-07-27 Emergency EM Koussayer, HCAMN JULIA [id number] [facility] 10:15:00 12:36:00 Juan Jose 17 [facility] 2021-07-22 2021-07-22 Emergency EM Marcelina, HCACL AERS [id number] [facility] 04:25:00 08:20:00 Gabriella 74 [facility] 2021-06-27 2021-06-27 Emergency EM White, HCACL AERS [id number] [facility] 15:31:00 17:37:00 Steve Pollard [facility] 2021-04-28 2021-05-01 Inpatient EM Aisha, HCACL [facility] [id number] [facility] 21:05:00 14:18:00 Christopher 03 [facility] 2020-02-24 2020-02-24 Outpatient Eliazar, HCACL LABO [id number] [facility] 07:51:00 07:51:00 Mark 96 [facility] 2020-02-18 2020-02-18 Outpatient Avtar, HCACL LABO [id number] [facility] 00:26:00 00:26:00 Oladipo 05 [facility] 2020-01-05 2020-01-05 Outpatient Perea, HCACL [facility] [id number] [facility] 23:52:00 23:52:00 [facility] 24 [facility] 2017-11-02 2017-11-02 Emergency E [facility] MED [id number] 08:33:00 08:33:00 [facility] 2017-08-05 2017-08-05 Outpatient [facility] [id number] [place] 00:00:00 00:00:00 [facility] 2017-07-28 2017-07-28 Outpatient [facility] [id number] [place] 00:00:00 00:00:00 [facility] 2017-06-24 2017-06-24 Outpatient [facility] [id number] [place] 00:00:00 00:00:00 [facility] 2017-06-22 2017-06-22 Emergency [facility] [id number] [place] 21:37:29 21:37:29 [facility] 2017-06-22 2017-06-22 Emergency [facility] [id number] [place] 21:06:00 21:06:00 Health 2017-06-22 2017-06-22 Outpatient [facility] [id number] [place] 10:02:31 10:02:31 Health 2017-06-09 2017-06-09 Outpatient [facility] [id number] [place] 00:00:00 00:00:00 Health 2017-06-09 2017-06-09 Outpatient [facility] [id number] [place] 00:00:00 00:00:00 [facility] 2017-05-08 2017-05-08 Emergency [facility] MED [id number] [place] 01:04:44 01:04:44 [facility] 2017-05-05 2017-05-05 Emergency E [facility] MED [id number] 08:11:00 08:11:00 [facility] 2017-04-15 2017-04-15 Emergency E [facility] MED [id number] 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 BASIC METABOLIC [id number] 14:56:00 Test Item Value Reference Range Interpretation [...] MG/DL 70-110 N - XR CHEST 1 [id number] 00:00:00 [facility] : 1970 Sex: M FAX: Steve Urias MD [phone] [place]: [address] St: REG Name: MARIA ISABEL JOSEPH FSED : 1970 Age/S: 52/M [address] [facility] Unit #: [id number] [place]: [place] [address] Phys: Steve Urias MD Acct: [id number] Dis Date: Status: REG ER PHONE #: Exam Date: 03/29/2022 1501 FAX #: Reason: Weakness EXAMS: CPT CODE: [id number] XR CHEST 1 V 22940 PROCEDURE INFORMATION: Exam: XR Chest Exam date [...] Steve Urias MD Technologist: Avtar Lang RT(R)(CT[facility] Date/Time/By: 03/29/2022 (0990) : By: Candido.TTV Orig Print D/T: S: 03/29/2022 (2351) PAGE 1 Signed ReportHEPATIC FUNCTION [id number] 06:45:03 Test Item Value Reference Range Interpretation [...] (test code = 13 U/L 6-55 347) Rfid Manager KEN HOOD WBASIC METABOLIC [id number] 06:45:02 Test Item Value Reference Range Interpretation [...] S NOT APPLICABLE FOR DIALYSIS PATIEN TS. Rfid Manager ID Philipp ERWIN WCBC W/PLT COUNT & AUTO [id number] 06:26:54 Test Item Value Reference Range Interpretation [...] (BEAKER) (test code = 2801) U/S, RENAL, [id number] 19:23:00Reason for exam:->acute kidney injury [facility] : 1970 Sex: [...] SARS-Co V-2 (test code = target nucleic 07787-8) acids are not detected in thi s [...] om SARS-CoV-2 in a nasopharyngeal swab specimen [facility] from individual s suspected of [...] revoked sooner. Fact Sheet for Healthcare Providers: https://www.Kymab/Documents/Xp ert%20Xpress%20SAR S%20CoV-2/Fact%20S heets/302-3802%20S ARS-COV-2%20HEALTH CARE%20PROVIDERS%2 0FACT%20SHEET.pdf Fact Sheet for Healthcare Patients: https://www.Kymab/Documents/Xp ert%20Xpress%20SAR S%20CoV-2/Fact%20S heets/302-3801%20S ARS-COV-2%20PATIEN T%20FACT%20SHEET.p df Lab Interpretation Normal (test code = 29820-6) [facility]-06 19:17:07 Test Item Value Reference Interpretation Comments Range SARS-COV2/RT-PCR Negative Negative The SARS-Co V-2 (test code = target nucleic 82372-6) acids are not detected in thi s [...] revoked sooner. Fact Sheet for Healthcare Providers: https://www.Kymab/Documents/Xp ert%20Xpress%20SAR S%20CoV-2/Fact%20S heets/302-3802%20S ARS-COV-2%20HEALTH CARE%20PROVIDERS%2 0FACT%20SHEET.pdf Fact Sheet for Healthcare Patients: https://www.Kymab/Documents/Xp ert%20Xpress%20SAR S%20CoV-2/Fact%20S heets/302-3801%20S ARS-COV-2%20PATIEN T%20FACT%20SHEET.p df Lab Interpretation Normal (test code = 45150-8) [facility]2022-03-06 19:17:07 Test Item Value Reference Interpretation Comments Range SARS-COV2/RT-PCR Negative Negative The SARS-Co V-2 (test code = target nucleic 80650-8) acids are not detected in thi s [...] revoked sooner. Fact Sheet for Healthcare Providers: https://www.Kymab/Documents/Xp ert%20Xpress%20SAR S%20CoV-2/Fact%20S heets/302-3802%20S ARS-COV-2%20HEALTH CARE%20PROVIDERS%2 0FACT%20SHEET.pdf Fact Sheet for Healthcare Patients: https://wwwTriVascular/Documents/Xp ert%20Xpress%20SAR S%20CoV-2/Fact%20S heets/302-3801%20S ARS-COV-2%20PATIEN T%20FACT%20SHEET.p df Lab Interpretation Normal (test code = 46480-0) [facility]2022-03-06 19:17:07 Test Item Value Reference Interpretation Comments Range SARS-COV2/RT-PCR Negative Negative The SARS-Co V-2 (test code = target nucleic 49629-1) acids are not detected in [facility] s specimen. Negat ector results do not [...] revoked sooner. Fact Sheet for Healthcare Providers: https://www.Kymab/Documents/Xp ert%20Xpress%20SAR S%20CoV-2/Fact%20S heets/302-3802%20S ARS-COV-2%20HEALTH CARE%20PROVIDERS%2 0FACT%20SHEET.pdf Fact Sheet for Healthcare Patients: https://wwwTriVascular/Documents/Xp ert%20Xpress%20SAR S%20CoV-2/Fact%20S heets/302-3801%20S ARS-COV-2%20PATIEN T%20FACT%20SHEET.p df Lab Interpretation Normal (test code = 75486-7) [facility]2022-03-06 19:17:07 Test Item Value Reference Interpretation Comments Range SARS-COV2/RT-PCR Negative Negative The SARS-Co V-2 (test code = target nucleic 63692-5) acids are not detected in thi s [...] revoked sooner. Fact Sheet for Healthcare Providers: https://www.Kymab/Documents/Xp ert%20Xpress%20SAR S%20CoV-2/Fact%20S heets/302-3802%20S ARS-COV-2%20HEALTH CARE%20PROVIDERS%2 0FACT%20SHEET.pdf Fact Sheet for Healthcare Patients: https://www.Kymab/Documents/Xp ert%20Xpress%20SAR S%20CoV-2/Fact%20S heets/302-3801%20S ARS-COV-2%20PATIEN T%20FACT%20SHEET.p df Lab Interpretation Normal (test code = 04370-0) [facility]2022-03-06 19:17:07 Test Item Value Reference Interpretation Comments Range SARS-COV2/RT-PCR Negative Negative The SARS-Co V-2 (test code = target nucleic 00137-4) acids are not detected in thi s [...] revoked sooner. Fact Sheet for Healthcare Providers: https://www.Kymab/Documents/Xp ert%20Xpress%20SAR S%20CoV-2/Fact%20S heets/302-3802%20S ARS-COV-2%20HEALTH CARE%20PROVIDERS%2 0FACT%20SHEET.pdf Fact Sheet for Healthcare Patients: https://www.Kymab/Documents/Xp ert%20Xpress%20SAR S%20CoV-2/Fact%20S heets/302-3801%20S ARS-COV-2%20PATIEN T%20FACT%20SHEET.p df Lab Interpretation Normal (test code = 59255-0) [facility]2022-03-06 19:17:07 Test Item Value Reference Interpretation Comments Range SARS-COV2/RT-PCR Negative Negative The SARS-Co V-2 (test code = target nucleic 43371-4) acids are not detected in thi s [...] revoked sooner. Fact Sheet for Healthcare Providers: https://www.Kymab/Documents/Xp ert%20Xpress%20SAR S%20CoV-2/Fact%20S heets/302-3802%20S ARS-COV-2%20HEALTH CARE%20PROVIDERS%2 0FACT%20SHEET.pdf Fact Sheet for Healthcare Patients: https://www.Kymab/Documents/Xp ert%20Xpress%20SAR S%20CoV-2/Fact%20S heets/302-3801%20S ARS-COV-2%20PATIEN T%20FACT%20SHEET.p df Lab Interpretation Normal (test code = 15710-5) [facility]2022-03-06 19:17:07 Test Item Value Reference Interpretation Comments Range SARS-COV2/RT-PCR Negative Negative The SARS-Co V-2 (test code = target nucleic 64392-4) acids are not detected in thi s [...] om SARS-CoV-2 in a [facility]oph[facility]ab [facility] from individual s suspected of COVID-19 [...] revoked sooner. Fact Sheet for Healthcare Providers: https://www.Kymab/Documents/Xp ert%20Xpress%20SAR S%20CoV-2/Fact%20S heets/302-3802%20S ARS-COV-2%20HEALTH CARE%20PROVIDERS%2 0FACT%20SHEET.pdf Fact Sheet for Healthcare Patients: https://www.Kymab/Documents/Xp ert%20Xpress%20SAR S%20CoV-2/Fact%20S heets/302-3801%20S ARS-COV-2%20PATIEN T%20FACT%20SHEET.p df Lab Interpretation Normal (test code = 54217-5) [facility]2022-03-06 19:17:07 Test Item Value Reference Interpretation Comments Range SARS-COV2/RT-PCR Negative Negative The SARS-Co V-2 (test code = target nucleic 31406-2) acids are not detected in thi s [...] revoked sooner. Fact Sheet for Healthcare Providers: https://www.Kymab/Documents/Xp ert%20Xpress%20SAR S%20CoV-2/Fact%20S heets/302-3802%20S ARS-COV-2%20HEALTH CARE%20PROVIDERS%2 0FACT%20SHEET.pdf Fact Sheet for Healthcare Patients: https://www.Kymab/Documents/Xp ert%20Xpress%20SAR S%20CoV-2/Fact%20S heets/302-3801%20S ARS-COV-2%20PATIEN T%20FACT%20SHEET.p df Lab Interpretation Normal (test code = 69102-7) [facility]2022-03-06 19:17:07 Test Item Value Reference Interpretation Comments Range SARS-COV2/RT-PCR Negative Negative The SARS-Co V-2 (test code = target nucleic 51577-1) acids are not detected in thi s [...] revoked sooner. Fact Sheet for Healthcare Providers: https://www.Kymab/Documents/Xp ert%20Xpress%20SAR S%20CoV-2/Fact%20S heets/302-3802%20S ARS-COV-2%20HEALTH CARE%20PROVIDERS%2 0FACT%20SHEET.pdf Fact Sheet for Healthcare Patients: https://www.Kymab/Documents/Xp ert%20Xpress%20SAR S%20CoV-2/Fact%20S heets/302-3801%20S ARS-COV-2%20PATIEN T%20FACT%20SHEET.p df Lab Interpretation Normal (test code = 04586-3) [facility]As[facility]2022-03-06 19:17:07 Test Item Value Reference Interpretation Comments Range SARS-COV2/RT-PCR Negative Negative The SARS-Co V-2 (test code = target nucleic 52837-0) acids are not detected in thi s [...] revoked sooner. Fact Sheet for Healthcare Providers: https://www.Kymab/Documents/Xp ert%20Xpress%20SAR S%20CoV-2/Fact%20S heets/3023802%20S ARS-COV-2%20HEALTH CARE%20PROVIDERS%2 0FACT%20SHEET.pdf Fact Sheet for Healthcare Patients: https://www.Kymab/Documents/Xp ert%20Xpress%20SAR S%20CoV-2/Fact%20S heets/302-3801%20S ARS-COV-2%20PATIEN T%20FACT%20SHEET.p df Lab Interpretation Normal (test code = 37306-9) [facility]2022-03-06 19:17:07 Test Item Value Reference Interpretation Comments Range SARS-COV2/RT-PCR Negative Negative The SARS-Co V-2 (test code = target nucleic 61151-0) acids are not detected in thi s [...] revoked sooner. Fact Sheet for Healthcare Providers: https://www.Kymab/Documents/Xp ert%20Xpress%20SAR S%20CoV-2/Fact%20S heets/302-3802%20S ARS-COV-2%20HEALTH CARE%20PROVIDERS%2 0FACT%20SHEET.pdf Fact Sheet for Healthcare Patients: https://www.Kymab/Documents/Xp ert%20Xpress%20SAR S%20CoV-2/Fact%20S heets/302-3801%20S ARS-COV-2%20PATIEN T%20FACT%20SHEET.p df Lab Interpretation Normal (test code = 40240-2) [facility]2022-03-06 19:17:07 Test Item Value Reference Interpretation Comments Range SARS-COV2/RT-PCR Negative Negative The SARS-Co V-2 (test code = target nucleic 15314-0) acids are not detected in thi s [...] revoked sooner. Fact Sheet for Healthcare Providers: https://www.Kymab/Documents/Xp ert%20Xpress%20SAR S%20CoV-2/Fact%20S heets/302-3802%20S ARS-COV-2%20HEALTH CARE%20PROVIDERS%2 0FACT%20SHEET.pdf Fact Sheet for Healthcare Patients: https://www.Kymab/Documents/Xp ert%20Xpress%20SAR S%20CoV-2/Fact%20S heets/302-3801%20S ARS-COV-2%20PATIEN T%20FACT%20SHEET.p df Lab Interpretation Normal (test code = 11441-7) [facility]2022-03-06 19:17:07 Test Item Value Reference Interpretation Comments Range SARS-COV2/RT-PCR Negative Negative The SARS-Co V-2 (test code = target nucleic 34778-6) acids are not detected in thi s [...] revoked sooner. Fact Sheet for Healthcare Providers: https://www.Kymab/Documents/Xp ert%20Xpress%20SAR S%20CoV-2/Fact%20S heets/302-6988%20S ARS-COV-2%20HEALTH CARE%20PROVIDERS%2 0FACT%20SHEET.pdf Fact Sheet for Healthcare Patients: https://www.Kymab/Documents/Xp ert%20Xpress%20SAR S%20CoV-2/Fact%20S heets/302-9441%20S ARS-COV-2%20PATIEN T%20FACT%20SHEET.p df Lab Interpretation Normal (test code = 16746-7) [facility]2022-03-06 19:17:07 Test Item Value Reference Interpretation Comments Range SARS-COV2/RT-PCR Negative Negative The SARS-Co V-2 (test code = target nucleic 25849-8) acids are not detected in thi s [...] revoked sooner. Fact Sheet for Healthcare Providers: https://www.Kymab/Documents/Xp ert%20Xpress%20SAR S%20CoV-2/Fact%20S heets/302-3802%20S ARS-COV-2%20HEALTH CARE%20PROVIDERS%2 0FACT%20SHEET.pdf Fact Sheet for Healthcare Patients: https://www.Kymab/Documents/Xp ert%20Xpress%20SAR S%20CoV-2/Fact%20S heets/302-3801%20S ARS-COV-2%20PATIEN T%20FACT%20SHEET.p df Lab Interpretation Normal (test code = 20363-3) [facility]2022-03-06 19:17:07 Test Item Value Reference Interpretation Comments Range SARS-COV2/RT-PCR Negative Negative The SARS-Co V-2 (test code = target nucleic 37424-5) acids are not detected in thi s [...] revoked sooner. Fact Sheet for Healthcare Providers: https://www.Kymab/Documents/Xp ert%20Xpress%20SAR S%20CoV-2/Fact%20S heets/302-3802%20S ARS-COV-2%20HEALTH CARE%20PROVIDERS%2 0FACT%20SHEET.pdf Fact Sheet for Healthcare Patients: https://www.Kymab/Documents/Xp ert%20Xpress%20SAR S%20CoV-2/Fact%20S heets/302-3801%20S ARS-COV-2%20PATIEN T%20FACT%20SHEET.p df Lab Interpretation Normal (test code = 44505-6) [facility]2022-03-06 19:17:07 Test Item Value Reference Interpretation Comments Range SARS-COV2/RT-PCR Negative Negative The SARS-Co V-2 (test code = target nucleic 22023-3) acids are not detected in thi s [...] revoked sooner. Fact Sheet for Healthcare Providers: https://www.Kymab/Documents/Xp ert%20Xpress%20SAR S%20CoV-2/Fact%20S heets/302-3802%20S ARS-COV-2%20HEALTH CARE%20PROVIDERS%2 0FACT%20SHEET.pdf Fact Sheet for Healthcare Patients: https://www.Kymab/Documents/Xp ert%20Xpress%20SAR S%20CoV-2/Fact%20S heets/302-3801%20S ARS-COV-2%20PATIEN T%20FACT%20SHEET.p df Lab Interpretation Normal (test code = 75373-9) [facility]2022-03-06 19:17:07 Test Item Value Reference Interpretation Comments Range SARS-COV2/RT-PCR Negative Negative The SARS-Co V-2 (test code = target nucleic 64159-9) acids are not detected in thi s [...] revoked sooner. Fact Sheet for Healthcare Providers: https://www.Kymab/Documents/Xp ert%20Xpress%20SAR S%20CoV-2/Fact%20S heets/302-3802%20S ARS-COV-2%20HEALTH CARE%20PROVIDERS%2 0FACT%20SHEET.pdf Fact Sheet for Healthcare Patients: https://www.Kymab/Documents/Xp ert%20Xpress%20SAR S%20CoV-2/Fact%20S heets/302-3801%20S ARS-COV-2%20PATIEN T%20FACT%20SHEET.p df Lab Interpretation Normal (test code = 08410-1) [facility]2022-03-06 19:17:07 Test Item Value Reference Interpretation Comments Range SARS-COV2/RT-PCR Negative Negative The SARS-Co V-2 (test code = target nucleic 19128-5) acids are not detected in thi s [...] om SARS-CoV-2 in a nasopharyngeal swab specimen [facility] from individual s suspected of [...] revoked sooner. Fact Sheet for Healthcare Providers: https://www.Kymab/Documents/Xp ert%20Xpress%20SAR S%20CoV-2/Fact%20S heets/302-3802%20S ARS-COV-2%20HEALTH CARE%20PROVIDERS%2 0FACT%20SHEET.pdf Fact Sheet for Healthcare Patients: https://www.Kymab/Documents/Xp ert%20Xpress%20SAR S%20CoV-2/Fact%20S heets/302-3801%20S ARS-COV-2%20PATIEN T%20FACT%20SHEET.p df Lab Interpretation Normal (test code = 73631-1) [facility]2022-03-06 19:17:07 Test Item Value Reference Interpretation Comments Range SARS-COV2/RT-PCR Negative Negative The SARS-Co V-2 (test code = target nucleic 69778-6) acids are not detected in thi s [...] revoked sooner. Fact Sheet for Healthcare Providers: https://www.Kymab/Documents/Xp ert%20Xpress%20SAR S%20CoV-2/Fact%20S heets/302-3802%20S ARS-COV-2%20HEALTH CARE%20PROVIDERS%2 0FACT%20SHEET.pdf Fact Sheet for Healthcare Patients: https://www.Kymab/Documents/Xp ert%20Xpress%20SAR S%20CoV-2/Fact%20S heets/302-3801%20S ARS-COV-2%20PATIEN T%20FACT%20SHEET.p df Lab Interpretation Normal (test code = 78884-8) [facility]omatic [facility]2022-03-06 19:17:07 Test Item Value Reference Interpretation Comments Range SARS-COV2/RT-PCR Negative Negative The SARS-Co V-2 (test code = target nucleic 23940-0) acids are not detected in thi s [...] revoked sooner. Fact Sheet for Healthcare Providers: https://www.Kymab/Documents/Xp ert%20Xpress%20SAR S%20CoV-2/Fact%20S heets/302-3802%20S ARS-COV-2%20HEALTH CARE%20PROVIDERS%2 0FACT%20SHEET.pdf Fact Sheet for Healthcare Patients: https://wwwTriVascular/Documents/Xp ert%20Xpress%20SAR S%20CoV-2/Fact%20S heets/302-3801%20S ARS-COV-2%20PATIEN T%20FACT%20SHEET.p df Lab Interpretation Normal (test code = 23937-8) [facility]omatic [facility]2022-03-06 19:17:07 Test Item Value Reference Interpretation Comments Range SARS-COV2/RT-PCR Negative Negative The SARS-Co V-2 (test code = target nucleic 45205-5) acids are not detected in thi s [...] revoked sooner. Fact Sheet for Healthcare Providers: https://www.Kymab/Documents/Xp ert%20Xpress%20SAR S%20CoV-2/Fact%20S heets/302-3802%20S ARS-COV-2%20HEALTH CARE%20PROVIDERS%2 0FACT%20SHEET.pdf Fact Sheet for Healthcare Patients: https://www.Kymab/Documents/Xp ert%20Xpress%20SAR S%20CoV-2/Fact%20S heets/302-3801%20S ARS-COV-2%20PATIEN T%20FACT%20SHEET.p df Lab Interpretation Normal (test code = 78754-5) [facility])2022-03-06 19:17:07 Test Item Value Reference Range Interpretation Comments SARS-COV2/RT-PCR Negative Negative The SARS-Co V-2 target (test code = nucleic acids a re not 5295964) detected in thi s specimen. Negative result [...] revoked sooner. Fact Sheet for Healthcare Providers: https://www.Night [employer] m/Documents/Xpert%20Xpress%20SARS%20CoV-2/Fact%20Sheets/302-3802%04QEVT-DEQ-1%20 HEALTHCARE%20PROVIDERS%20FACT%20SHEET.pdf Fact Sheet for Healthcare Patients: https://www.[employer]/Documents/Xpert%20Xp ress%20SARS%20CoV-2/Fact%20Sheets/3023801%81QYIR-RBR-2%20PATIENT%20FACT%20SHEET .pdfCREATINE KINASE (CK)2022-03-06 16:19:14 Test Item Value Reference Range Interpretation Comments CREATINE KINASE TOTAL (BEAKER) (test 141 U/L 29-200 code = 380) Rfid Manager ID - BST4, [id number] 15:13:16 Test Item Value Reference Range Interpretation Comments FREE T4 (BEAKER) (test code = 655) 0.95 ng/dL 0.70-1.48 Rfid Manager ID - BSTSH/FREE T4 IF [id number] 15:13:16 Test Item Value Reference Range Interpretation Comments THYROID STIMULATING HORMONE 2.060 uIU/mL 0.350-4.940 (BEAKER) (test code = 772) Rfid Manager ID - BSB-TYPE NATRIURETIC FACTOR (BNP)2022-03-06 14:26:30 Test Item Value Reference Range Interpretation Comments B-TYPE NATRIURETIC PEPTIDE (BEAKER) < pg/mL 0-100 (test code = 700) Rfid Manager ID - JSHIGH SENSITIVITY TROPONIN [id number] 14:14:54 Test Item Value Reference Range Interpretation Comments HIGH SENSITIVITY < pg/ml See_Comment [Automated message] TROPONIN I (test code = The system which [id number]) generated this result transmitted ref erence range: <=35. Th e reference range was not used to interpr et this result as normal/abnormal . Rfid Manager ID - JSThe CROWN PERFORATOR OPERATOR STAT High Sensitivity Troponin-I results should be used in conjunctionwith other diagnostic information such as ECG, clinical observations and information, and patient symptoms to aid in the diagnosis of VT.RAD, CHEST, 1 VIEW, NON [id number] 14:10:00Reason for exam:- >NEUROLOGIC PROBLEMShould this be performed at the bedside?->Yes [facility] 1970 Sex: MFINAL REPORT Chest, 1 view, 03/06/2022 2:03 PM. History: Neurologic problem. Comparison: 03/28/2019. Discussion: The cardiomediastinal silhouette and pulmonary vasculature are within normal limits for a portable exam. The lungs are clear without evidence of consolidation or effusion. The soft tissues and osseous structures are intact. IMPRESSION: No acute cardiopulmonary abnormality. Signed: Bernabe Brown [facility] Verified Date/Time: 03/06/2022 14:10:44 REHENSIVE METABOLIC [id number] 14:08:22 Test Item Value Reference Range Interpretation [...] S NOT APPLICABLE FOR DIALYSIS PATIEN TS. Rfid Manager ID - [id number] 14:07:49 Test Item Value Reference Range Interpretation Comments MAGNESIUM (BEAKER) (test code = 2.0 mg/dL 1.6-2.6 627) Rfid Manager ID - [id number] 14:07:49 Test Item Value Reference Range Interpretation Comments PHOSPHORUS (BEAKER) (test code = 5.6 mg/dL 2.3-4.7 H 604) Rfid Manager ID - JSLACTIC ACID, [id number] 13:51:04 Test Item Value Reference Range Interpretation Comments LACTATE BLOOD VENOUS 1.32 mmol/L 0.50-2.20 Specime n slightly (2) (BEAKER) (test hemolyzed code = 9473) Rfid Manager ID - JSCBC W/PLT COUNT & AUTO [id number] 13:47:24 Test Item Value Reference Range Interpretation [...] (BEAKER) (test code = 2801) Coronavirus, CoVID-19, [id number] 01:07:20 Test Item Value Reference Range Interpretation Comments COVID-19 (SARS-COV-2) Not Detected Not Detected INTERP RETATION: No (test code = 95276-3) detect able levels of SARS-CoV-2 Coronavirus (COVID-19) [...] SARS-CoV-2 mole cular diagnostic assa y utilizes Care Taker Mediated Amplification ( TMA) technology to r apidly detect the SARS -CoV-2 (COVID-19) viru s from respiratory adriana ples. In accordance w ith the FDA's kamran nce document "Polic y for Diagnostic Test s for Coronavirus Disease-2019 [facility] the Public [facility] Emergency", thi s test was developed, and its performance characteristics were verified by the [facility] molecular diagn ostics laboratory and is authorized for clinical diagno stic use. This labor atory is certified un estevan the Clinical Laboratory Improvement Amendments (CLI A) as qualified to pe rform high complexity clinical labora tory testing. Lab Interpretation Normal (test code = 14128-0) [facility] [id number] 01:07:20 Test Item Value Reference Range Interpretation Comments COVID-19 (SARS-COV-2) Not Detected Not Detected INTERP RETATION: No (test code = 79129-8) detect able levels of SARS-CoV-2 Coronavirus (COVID-19) [...] SARS-CoV-2 mole cular diagnostic assa y utilizes Care Taker Mediated Amplification ( TMA) technology to r apidly detect the SARS -CoV-2 (COVID-19) viru s from respiratory adriana ples. In accordance w ith the FDA's kamran nce document "Polic y for Diagnostic Test s for Coronavirus Disease-2019 du [place] the [facility]", thi s test was developed, and its performance characteristics were verified by the [facility] molecular diagn ostics laboratory and is authorized for clinical diagno stic use. This labor atory is certified un est[place] the Clinical Laboratory Improvement Amendments (CLI A) as qualified to pe rform high complexity clinical labora tory testing. Lab Interpretation Normal (test code = 41930-7) [facility], [id number] 01:07:20 Test Item Value Reference Range Interpretation Comments COVID-19 (SARS-COV-2) Not Detected Not Detected INTERP RETATION: No (test code = 09509-8) detect able levels of SARS-CoV-2 Coronavirus (COVID-19) [...] SARS-CoV-2 mole cular diagnostic assa y utilizes Care Taker Mediated Amplification ( TMA) technology to r apidly detect the SARS -CoV-2 (COVID-19) viru s from respiratory adriana ples. In accordance w ith the FDA's kamran nce document "Polic y for Diagnostic Test s for Coronavirus Disease-2019 du [facility] the Public [facility]", ginger s test was developed, and its performance characteristics were verified by the [facility] molecular diagn ostics laboratory and is authorized for clinical diagno stic use. This labor atory is certified un est[place] the Clinical Laboratory Improvement Amendments (CLI A) as qualified to pe rform high complexity clinical labora tory testing. Lab Interpretation Normal (test code = 50297-0) [facility] Ruelasronavirus, CoVID-19, [id number] 01:07:20 Test Item Value Reference Range Interpretation Comments COVID-19 (SARS-COV-2) Not Detected Not Detected INTERP RETATION: No (test code = 77527-6) detect able levels of SARS-CoV-2 Coronavirus (COVID-19) [...] SARS-CoV-2 mole cular diagnostic assa y utilizes Care Taker Mediated Amplification ( TMA) technology to r apidly detect the SARS -CoV-2 (COVID-19) viru s from respiratory adriana ples. In accordance w ith the FDA's kamran nce document "Polic y for Diagnostic Test s for Coronavirus Disease-2019 du [facility]", thi s test was developed, and its performance characteristics were verified by the [facility] molecular diagn ostics laboratory and is authorized for clinical diagno stic use. This labor atory is certified un est[place] the Clinical Laboratory Improvement Amendments (CLI A) as qualified to pe rform high complexity clinical labora tory testing. Lab Interpretation Normal (test code = 28261-6) [facility] [id number] 01:07:20 Test Item Value Reference Range Interpretation Comments COVID-19 (SARS-COV-2) Not Detected Not Detected INTERP RETATION: No (test code = 55944-8) detect able levels of SARS-CoV-2 Coronavirus (COVID-19) [...] SARS-CoV-2 mole cular diagnostic assa y utilizes Care Taker Mediated Amplification ( TMA) technology to r apidly detect the SARS -CoV-2 (COVID-19) viru s from respiratory adriana ples. In accordance w ith the FDA's kamran nce document "Polic y for Diagnostic Test s for Coronavirus Disease-2019 [facility] Emergency", thi s test was developed, and its performance characteristics were verified by the [facility] molecular diagn ostics laboratory and is authorized for clinical diagno stic use. This labor atory is certified un est[place] the Clinical Laboratory Improvement Amendments (CLI A) as qualified to pe rform high complexity clinical labora tory testing. Lab Interpretation Normal (test code = 10569-4) [facility], [id number] 01:07:20 Test Item Value Reference Range Interpretation Comments COVID-19 (SARS-COV-2) Not Detected Not Detected INTERP RETATION: No (test code = 37820-4) detect able levels of SARS-CoV-2 Coronavirus (COVID-19) [...] SARS-CoV-2 mole cular diagnostic assa y utilizes Care Taker Mediated Amplification ( TMA) technology to r apidly detect the SARS -CoV-2 (COVID-19) viru s from respiratory adriana ples. In accordance w ith the FDA's kamran nce document "Polic y for Diagnostic Test s for Coronavirus Disease-2019 [facility] Emergency", thi s test was developed, and its performance characteristics were verified by the [facility] molecular diagn ostics laboratory and is authorized for clinical diagno stic use. This labor atory is certified un [place] the Clinical Laboratory Improvement Amendments (CLI A) as qualified to pe rform high complexity clinical labora tory testing. Lab Interpretation Normal (test code = 10346-7) [facility], [id number] 01:07:20 Test Item Value Reference Range Interpretation Comments COVID-19 (SARS-COV-2) Not Detected Not Detected INTERP RETATION: No (test code = 36086-0) detect able levels of SARS-CoV-2 Coronavirus (COVID-19) [...] SARS-CoV-2 mole cular diagnostic assa y utilizes Care Taker Mediated Amplification ( TMA) technology to r apidly detect the SARS -CoV-2 (COVID-19) viru s from respiratory adriana ples. In accordance w ith the FDA's kamran nce document "Polic y for Diagnostic Test s for Coronavirus Disease-2019 [facility] the [facility] Emergency", thi s test was developed, and its performance characteristics were verified by the [facility] molecular diagn ostics laboratory and is authorized for clinical diagno stic use. This labor atory is certified un [place] the Clinical Laboratory Improvement Amendments (CLI A) as qualified to pe rform high complexity clinical labora tory testing. Lab Interpretation Normal (test code = 76823-9) [facility], [id number] 01:07:20 Test Item Value Reference Range Interpretation Comments COVID-19 (SARS-COV-2) Not Detected Not Detected INTERP RETATION: No (test code = 11789-2) detect able levels of SARS-CoV-2 Coronavirus (COVID-19) [...] SARS-CoV-2 mole cular diagnostic assa y utilizes Care Taker Mediated Amplification ( TMA) technology to r apidly detect the SARS -CoV-2 (COVID-19) viru s from respiratory adriana ples. In accordance w ith the FDA's kamran nce document "Polic y for Diagnostic Test s for Coronavirus Disease-2019 [facility] Emergency", thi s test was developed, and its performance characteristics were verified by the [facility] molecular diagn ostics laboratory and is authorized for clinical diagno stic use. This labor atory is certified un [place] the Clinical Laboratory Improvement Amendments (CLI A) as qualified to pe rform high complexity clinical labora tory testing. Lab Interpretation Normal (test code = 06569-0) [facility], CoVID-19, [id number] 01:07:20 Test Item Value Reference Range Interpretation Comments COVID-19 (SARS-COV-2) Not Detected Not Detected INTERP RETATION: No (test code = 41746-6) detect able levels of SARS-CoV-2 Coronavirus (COVID-19) [...] SARS-CoV-2 mole cular diagnostic assa y utilizes Care Taker Mediated Amplification ( TMA) technology to r apidly detect the SARS -CoV-2 (COVID-19) viru s from respiratory adriana ples. In accordance w ith the FDA's kamran nce document "Polic y for Diagnostic Test s for Coronavirus Disease-2019 [facility] Emergency", thi s test was developed, and its performance characteristics were verified by the [facility] molecular diagn ostics laboratory and is authorized for clinical diagno stic use. This labor atory is certified un [place] the Clinical Laboratory Improvement Amendments (CLI A) as qualified to pe rform high complexity clinical labora tory testing. Lab Interpretation Normal (test code = 48774-4) [facility], CoVID-19, [id number] 01:07:20 Test Item Value Reference Range Interpretation Comments COVID-19 (SARS-COV-2) Not Detected Not Detected INTERP RETATION: No (test code = 99115-3) detect able levels of SARS-CoV-2 Coronavirus (COVID-19) [...] SARS-CoV-2 mole cular diagnostic assa y utilizes Care Taker Mediated Amplification ( TMA) technology to r apidly detect the SARS -CoV-2 (COVID-19) viru s from respiratory adriana ples. In accordance w ith the FDA's kamran nce document "Polic y for Diagnostic Test s for Coronavirus Disease-2019 [facility] Emergency", thi s test was developed, and its performance characteristics were verified by the [facility] molecular diagn ostics laboratory and is authorized for clinical diagno stic use. This labor atory is certified un [place] the Clinical Laboratory Improvement Amendments (CLI A) as qualified to pe rform high complexity clinical labora tory testing. Lab Interpretation Normal (test code = 73726-2) [facility], [id number] 01:07:20 Test Item Value Reference Range Interpretation Comments COVID-19 (SARS-COV-2) Not Detected Not Detected INTERP RETATION: No (test code = 18304-2) detect able levels of SARS-CoV-2 Coronavirus (COVID-19) [...] SARS-CoV-2 mole cular diagnostic assa y utilizes Care Taker Mediated Amplification ( TMA) technology to r apidly detect the SARS -CoV-2 (COVID-19) viru s from respiratory adriana ples. In accordance w ith the FDA's kamran nce document "Polic y for Diagnostic Test s for Coronavirus Disease-2019 [facility] Emergency", thi s test was developed, and its performance characteristics were verified by the [facility] molecular diagn ostics laboratory and is authorized for clinical diagno stic use. This labor atory is certified un [place] the Clinical Laboratory Improvement Amendments (CLI A) as qualified to pe rform high complexity clinical labora tory testing. Lab Interpretation Normal (test code = 61067-3) [facility], [id number] 01:07:20 Test Item Value Reference Range Interpretation Comments COVID-19 (SARS-COV-2) Not Detected Not Detected INTERP RETATION: No (test code = 94342-9) detect able levels of SARS-CoV-2 Coronavirus (COVID-19) [...] SARS-CoV-2 mole cular diagnostic assa y utilizes Care Taker Mediated Amplification ( TMA) technology to r apidly detect the SARS -CoV-2 (COVID-19) viru s from respiratory adriana ples. In accordance w ith the FDA's kamran nce document "Polic y for Diagnostic Test s for Coronavirus Disease-2019 [facility] Emergency", thi s test was developed, and its performance characteristics were verified by the [facility] molecular diagn ostics laboratory and is authorized for clinical diagno stic use. This labor atory is certified un [place] the Clinical Laboratory Improvement Amendments (CLI A) as qualified to pe rform high complexity clinical labora tory testing. Lab Interpretation Normal (test code = 63985-8) [facility]avirus, CoVID-19, [id number] 01:07:20 Test Item Value Reference Range Interpretation Comments COVID-19 (SARS-COV-2) Not Detected Not Detected INTERP RETATION: No (test code = 68898-6) detect able levels of SARS-CoV-2 Coronavirus (COVID-19) [...] SARS-CoV-2 mole cular diagnostic assa y utilizes Care Taker Mediated Amplification ( TMA) technology to r apidly detect the SARS -CoV-2 (COVID-19) viru s from respiratory adriana ples. In accordance w ith the FDA's kamran nce document "Polic y for Diagnostic Test s for Coronavirus Disease-2019 du ring the [facility]", thi s test was developed, and its performance characteristics were verified by the [facility] molecular diagn ostics laboratory and is authorized for clinical diagno stic use. This labor atory is certified un [place] the Clinical Laboratory Improvement Amendments (CLI A) as qualified to pe rform high complexity clinical labora tory testing. Lab Interpretation Normal (test code = 62429-2) [facility] Ruelasronavirus, CoVID-19, [id number] 01:07:20 Test Item Value Reference Range Interpretation Comments COVID-19 (SARS-COV-2) Not Detected Not Detected INTERP RETATION: No (test code = 10595-7) detect able levels of SARS-CoV-2 Coronavirus (COVID-19) [...] SARS-CoV-2 mole cular diagnostic assa y utilizes Care Taker Mediated Amplification ( TMA) technology to r apidly detect the SARS -CoV-2 (COVID-19) viru s from respiratory adriana ples. In accordance w ith the FDA's kamran nce document "Polic y for Diagnostic Test s for Coronavirus Disease-2019 [facility] Emergency", thi s test was developed, and its performance characteristics were verified by the [facility] molecular diagn ostics laboratory and is authorized for clinical diagno stic use. This labor atory is certified un [place] the Clinical Laboratory Improvement Amendments (CLI A) as qualified to pe rform high complexity clinical labora tory testing. Lab Interpretation Normal (test code = 14903-1) [facility], [id number] 01:07:20 Test Item Value Reference Range Interpretation Comments COVID-19 (SARS-COV-2) Not Detected Not Detected INTERP RETATION: No (test code = 55426-2) detect able levels of SARS-CoV-2 Coronavirus (COVID-19) [...] SARS-CoV-2 mole cular diagnostic assa y utilizes Care Taker Mediated Amplification ( TMA) technology to r apidly detect the SARS -CoV-2 (COVID-19) viru s from respiratory adriana ples. In accordance w ith the FDA's kamran nce document "Polic y for Diagnostic Test s for Coronavirus Disease-2019 du ring the [facility] Emergency", thi s test was developed, and its performance characteristics were verified by the [facility] molecular diagn ostics laboratory and is authorized for clinical diagno stic use. This labor atory is certified un est[place] the Clinical Laboratory Improvement Amendments (CLI A) as qualified to pe rform high complexity clinical labora tory testing. Lab Interpretation Normal (test code = 14974-3) [facility], [id number] 01:07:20 Test Item Value Reference Range Interpretation Comments COVID-19 (SARS-COV-2) Not Detected Not Detected INTERP RETATION: No (test code = 78107-4) detect able levels of SARS-CoV-2 Coronavirus (COVID-19) [...] SARS-CoV-2 mole cular diagnostic assa y utilizes Care Taker Mediated Amplification ( TMA) technology to r apidly detect the SARS -CoV-2 (COVID-19) viru s from respiratory adriana ples. In accordance w ith the FDA's kamran nce document "Polic y for Diagnostic Test s for Coronavirus Disease-2019 du ring the [facility] th Emergency", thi s test was developed, and its performance characteristics were verified by the [facility] molecular diagn ostics laboratory and is authorized for clinical diagno stic use. This labor atory is certified un est[place] the Clinical Laboratory Improvement Amendments (CLI A) as qualified to pe rform high complexity clinical labora tory testing. Lab Interpretation Normal (test code = 20130-7) [place] [facility] [id number] 01:07:20 Test Item Value Reference Range Interpretation Comments COVID-19 (SARS-COV-2) Not Detected Not Detected INTERP RETATION: No (test code = 45625-4) detect able levels of SARS-CoV-2 Coronavirus (COVID-19) [...] SARS-CoV-2 mole cular diagnostic assa y utilizes Care Taker Mediated Amplification ( TMA) technology to r apidly detect the SARS -CoV-2 (COVID-19) viru s from respiratory adriana ples. In accordance w ith the FDA's kamran nce document "Polic y for Diagnostic Test s for Coronavirus Disease-2019 [facility] Emergency", thi s test was developed, and its performance characteristics were verified by the [facility] molecular diagn ostics laboratory and is authorized for clinical diagno stic use. This labor atory is certified un est[place] the Clinical Laboratory Improvement Amendments (CLI A) as qualified to pe rform high complexity clinical labora tory testing. Lab Interpretation Normal (test code = 31941-0) [facility], [id number] 01:07:20 Test Item Value Reference Range Interpretation Comments COVID-19 (SARS-COV-2) Not Detected Not Detected INTERP RETATION: No (test code = 08276-1) detect able levels of SARS-CoV-2 Coronavirus (COVID-19) [...] SARS-CoV-2 mole cular diagnostic assa y utilizes Care Taker Mediated Amplification ( TMA) technology to r apidly detect the SARS -CoV-2 (COVID-19) viru s from respiratory adriana ples. In accordance w ith the FDA's kamran nce document "Polic y for Diagnostic Test s for Coronavirus Disease-2019 [facility] Emergency", thi s test was developed, and its performance characteristics were verified by the [facility] molecular diagn ostics laboratory and is authorized for clinical diagno stic use. This labor atory is certified un est[place] the Clinical Laboratory Improvement Amendments (CLI A) as qualified to pe rform high complexity clinical labora tory testing. Lab Interpretation Normal (test code = 70505-5) [facility], [id number] 01:07:20 Test Item Value Reference Range Interpretation Comments COVID-19 (SARS-COV-2) Not Detected Not Detected INTERP RETATION: No (test code = 15785-9) detect able levels of SARS-CoV-2 Coronavirus (COVID-19) [...] SARS-CoV-2 mole cular diagnostic assa y utilizes Care Taker Mediated Amplification ( TMA) technology to r apidly detect the SARS -CoV-2 (COVID-19) viru s from respiratory adriana ples. In accordance w ith the FDA's kamran nce document "Polic y for Diagnostic Test s for Coronavirus Disease-2019 [facility]", thi s test was developed, and its performance characteristics were verified by the [facility] molecular diagn ostics laboratory and is authorized for clinical diagno stic use. This labor atory is certified un est[place] the Clinical Laboratory Improvement Amendments (CLI A) as qualified to pe rform high complexity clinical labora tory testing. Lab Interpretation Normal (test code = 96420-0) [facility], [id number] 01:07:20 Test Item Value Reference Range Interpretation Comments COVID-19 (SARS-COV-2) Not Detected Not Detected INTERP RETATION: No (test code = 93258-8) detect able levels of SARS-CoV-2 Coronavirus (COVID-19) [...] SARS-CoV-2 mole cular diagnostic assa y utilizes Care Taker Mediated Amplification ( TMA) technology to r apidly detect the SARS -CoV-2 (COVID-19) viru s from respiratory adriana ples. In accordance w ith the FDA's kamran nce document "Polic y for Diagnostic Test s for Coronavirus Disease-2019 [facility] the [facility] th Emergency", thi s test was developed, and its performance characteristics were verified by the [facility] molecular diagn ostics laboratory and is authorized for clinical diagno stic use. This labor atory is certified un est[place] the Clinical Laboratory Improvement Amendments (CLI A) as qualified to pe rform high complexity clinical labora tory testing. Lab Interpretation Normal (test code = 68326-5) [facility], [id number] 01:07:20 Test Item Value Reference Range Interpretation Comments COVID-19 (SARS-COV-2) Not Detected Not Detected INTERP RETATION: No (test code = 87218-7) detect able levels of SARS-CoV-2 Coronavirus (COVID-19) [...] SARS-CoV-2 mole cular diagnostic assa y utilizes Care Taker Mediated Amplification ( TMA) technology to r apidly detect the SARS -CoV-2 (COVID-19) viru s from respiratory adriana ples. In accordance w ith the FDA's kamran nce document "Polic y for Diagnostic Test s for Coronavirus Disease-2019 du ring the [facility] th Emergency", thi s test was developed, and its performance characteristics were verified by the [facility] molecular diagn ostics laboratory and is authorized for clinical diagno stic use. This labor atory is certified un est[place] the Clinical Laboratory Improvement Amendments (CLI A) as qualified to pe rform high complexity clinical labora tory testing. Lab Interpretation Normal (test code = 38427-5) [facility]dkqdnNMIQ-OpC-1 ORF1ab Resp Ql [id number] 01:07:20 Test Item Value Reference Range Interpretation Comments Hospitalized? (test No code = 33287-6) ICU? (test code = No 31482-6) Symptomatic as No defined by CDC? (test code = 52198-8) Employed in No Healthcare? (test code = 15769-3) Resident in a No congregate care setting (including nursing homes, residential care for people with intellectual and developmental disabilities, psychiatric treatment facilities, group homes, board and care homes, homeless snf, foster care or other): (test code = 10842-3) SARS-CoV-2 ORF1ab NOT DETECTED Not Detected INTERPRETA TION: No Resp Ql OLENA+probe detectable levels of (test code = SARS-CoV-2 40247-0) Coronavirus (COVID-19) were present in this patient's [...] SARS-CoV-2 mole cular diagnostic assa y utilizes Care Taker Mediated Amplification ( TMA) technology to r apidly detect the SARS -CoV-2 (COVID-19) viru s from respiratory adriana ples. In accordance with\\XC2A0\\the FDA's guidance docume nt "Policy for Diagnostic Test s for Coronavirus Disease-2019 du ring the [facility]", ginger s test was developed, and its performance characteristics were verified by the [facility] molecular diagn ostics laboratory and is authorized for clinical diagno stic use. \\XC2A0\\Thi s laboratory is certified under the Clinical Labora tory Improvement Amendments (CLI A) as qualified to pe rform high complexity clinical labora tory testing. [facility] [id number] 08:09:01 Test Item Value Reference Range Interpretation Comments Glucose POC (test code = 22880330) 85 mg/dL 74-106 Lab Interpretation (test code = Normal 72495-6) [facility] [id number] 08:09:01 Test Item Value Reference Range Interpretation Comments Glucose POC (test code = 14318045) 85 mg/dL 74-106 Lab Interpretation (test code = Normal 24413-5) [facility] [id number] 08:09:01 Test Item Value Reference Range Interpretation Comments Glucose POC (test code = 58231087) 85 mg/dL 74-106 Lab Interpretation (test code = Normal 30731-0) [facility] [id number] 08:09:01 Test Item Value Reference Range Interpretation Comments Glucose POC (test code = 45920010) 85 mg/dL 74-106 Lab Interpretation (test code = Normal 33592-5) [facility] [id number] 08:09:01 Test Item Value Reference Range Interpretation Comments Glucose POC (test code = 55488688) 85 mg/dL 74-106 Lab Interpretation (test code = Normal 12484-5) [facility] [id number] 08:09:01 Test Item Value Reference Range Interpretation Comments Glucose POC (test code = 53066467) 85 mg/dL 74-106 Lab Interpretation (test code = Normal 95319-6) [facility] [id number] 08:09:01 Test Item Value Reference Range Interpretation Comments Glucose POC (test code = 93203682) 85 mg/dL 74-106 Lab Interpretation (test code = Normal 43398-7) [facility] [id number] 08:09:01 Test Item Value Reference Range Interpretation Comments Glucose POC (test code = 79810528) 85 mg/dL 74-106 Lab Interpretation (test code = Normal 87532-2) [facility] [id number] 08:09:01 Test Item Value Reference Range Interpretation Comments Glucose POC (test code = 13279127) 85 mg/dL 74-106 Lab Interpretation (test code = Normal 36487-7) [facility] [id number] 08:09:01 Test Item Value Reference Range Interpretation Comments Glucose POC (test code = 16463387) 85 mg/dL 74-106 Lab Interpretation (test code = Normal 08183-8) [facility] [id number] 08:09:01 Test Item Value Reference Range Interpretation Comments Glucose POC (test code = 08330374) 85 mg/dL 74-106 Lab Interpretation (test code = Normal 18309-3) [facility] [id number] 08:09:01 Test Item Value Reference Range Interpretation Comments Glucose POC (test code = 50174244) 85 mg/dL 74-106 Lab Interpretation (test code = Normal 42851-4) [facility] [id number] 08:09:01 Test Item Value Reference Range Interpretation Comments Glucose POC (test code = 04730651) 85 mg/dL 74-106 Lab Interpretation (test code = Normal 40661-4) [facility] [id number] 08:09:01 Test Item Value Reference Range Interpretation Comments Glucose POC (test code = 41492298) 85 mg/dL 74-106 Lab Interpretation (test code = Normal 95306-4) [facility] [id number] 08:09:01 Test Item Value Reference Range Interpretation Comments Glucose POC (test code = 11115263) 85 mg/dL 74-106 Lab Interpretation (test code = Normal 94528-0) [facility] [id number] 08:09:01 Test Item Value Reference Range Interpretation Comments Glucose POC (test code = 50439339) 85 mg/dL 74-106 Lab Interpretation (test code = Normal 72100-0) [facility] [id number] 08:09:01 Test Item Value Reference Range Interpretation Comments Glucose POC (test code = 79796676) 85 mg/dL 74-106 Lab Interpretation (test code = Normal 68517-9) [facility] GLU[facility]SE P[facility] docked lfmzqn7283-12-69 08:09:01 Test Item Value Reference Range Interpretation Comments Glucose POC (test code = 99503402) 85 mg/dL 74-106 Lab Interpretation (test code = Normal 59971-8) [place] [facility]ed llwonk1602-11-26 08:09:01 Test Item Value Reference Range Interpretation Comments Glucose POC (test code = 99342720) 85 mg/dL 74-106 Lab Interpretation (test code = Normal 58368-4) [facility] qshkor4870-33-61 08:09:01 Test Item Value Reference Range Interpretation Comments Glucose POC (test code = 88540711) 85 mg/dL 74-106 Lab Interpretation (test code = Normal 11317-8) [facility]SE [facility] docked ooreud4614-14-93 08:09:01 Test Item Value Reference Range Interpretation Comments Glucose POC (test code = 56773106) 85 mg/dL 74-106 Lab Interpretation (test code = Normal 76530-8) [facility]WxauomGJAX-QcH-6 ORF1ab Resp Ql OLENA+fvpns3521-50-57 23:25:40 Test Item Value Reference Range Interpretation Comments Hospitalized? (test No code = 82152-1) ICU? (test code = No 36355-4) Symptomatic as No defined by CDC? (test code = 50034-5) Employed in No Healthcare? (test code = 33985-0) Resident in a No congregate care setting (including nursing homes, residential care for people with intellectual and developmental disabilities, psychiatric treatment facilities, group homes, board and care homes, homeless snf, foster care or other): (test code = 67785-6) SARS-CoV-2 ORF1ab NOT DETECTED Not Detected INTERPRETA TION: No Resp Ql OLENA+probe detectable levels of (test code = SARS-CoV-2 70742-6) Coronavirus (COVID-19) were present in this patient's [...] SARS-CoV-2 mole cular diagnostic assa y utilizes Care Taker Mediated Amplification ( TMA) technology to r apidly detect the SARS -CoV-2 (COVID-19) viru s from respiratory adriana ples. In accordance with\\XC2A0\\the FDA's guidance docume nt "Policy for Diagnostic Test s for Coronavirus Disease-2018 [facility] the [facility] th Emergency", ginger s test was developed, and its performance characteristics were verified by the [facility] molecular diagn ostics laboratory and is authorized for clinical diagno stic use. \\XC2A0\\Ginger s laboratory is certified under the Clinical Labora tory Improvement Amendments (CLI A) as qualified to pe rform high complexity clinical labora tory testing. [facility]12 Lead [id number] 15:46:1012 LEAD EKG FOR [facility] Test Date: 5791-20-29Kch Name: DORA JOSEPH Department: 5ECIPatient ID: [id number] Room: Gender: M Fagot Maker: [id number]: 1970 Requested By: DARRION Cho Number: [id number] Reading MD: Rene Patterson MeasurementsIntervals Ten Sleep Rate: 61 P: 72PR: 152 QRS: 55QRSD: 106 T: 63QT: 398 QTc: 400 Interpretive StatementsSINUS RHYTHMPOSSIBLE RIGHT VENTRICULAR CONDUCTION DELAY [RSR (QR) IN V1/V2]Electronically Signed On 01-22-2022 8:30:45 CDT by Rene BeiBeiChrisBluestem BrandsEncompass Health Rehabilitation Hospital8Trip [place] [address] Lead [id number] 15:46:1012 LEAD EKG FOR [facility] Test Date: 0396-43-38Shk Name: DORA OPAL Department: 5ECIPatient ID: [id number] Room: Gender: M Fagot Maker: [id number]: 1970 Requested By: DARRION Cho Number: [id number] Reading : Rene Patterson MeasurementsIntervals Ten Sleep Rate: 61 P: 72PR: 152 QRS: 55QRSD: 106 T: 63QT: 398 QTc: 400 Interpretive StatementsSINUS RHYTHMPOSSIBLE RIGHT VENTRICULAR CONDUCTION DELAY [RSR (QR) IN V1/V2]Electronically Signed On 01-22-2022 8:30:45 CDT by Rene RahmanSCollin [place] [address] Lead [id number] 15:46:1012 LEAD EKG FOR [facility] Test Date: 6582-77-20Ylu Name: DORA JOSEPH Department: 5ECIPatient ID: [id number] Room: Gender: M Fagot Maker: [id number]: 1970 Requested By: DARRION Cho Number: [id number] Reading MD: Rene Patterson MeasurementsIntervals Ten Sleep Rate: 61 P: 72PR: 152 QRS: 55QRSD: 106 T: 63QT: 398 QTc: 400 Interpretive StatementsSINUS RHYTHMPOSSIBLE RIGHT VENTR ICULAR CONDUCTION DELAY [RSR (QR) IN V1/V2]Electronically Signed On 01-22-2022 8:30:45 CDT by Rene PaezDebbyCollin [place]ille [address] Lead [id number] 15:46:1012 LEAD EKG FOR [facility] Test Date: 0612-57-68Qnd Name: DORA JOSEPH Department: 5ECIPatient ID: [id number] Room: Gender: M Fagot Maker: [id number]: 1970 Requested By: DARRION Cho Number: [id number] Reading MD: Rene Patterson MeasurementsIntervals Ten Sleep Rate: 61 P: 72PR: 152 QRS: 55QRSD: 106 T: 63QT: 398 QTc: 400 Interpretive StatementsSINUS RHYTHMPOSSIBLE RIGHT VENTRICULAR CONDUCTION DELAY [RSR (QR) IN V1/V2]Electronically Signed On 01-22-2022 8:30:45 CDT by Renerick PaezDebbyMECompaMark [place] [address] Lead [id number] 15:46:1012 LEAD EKG FOR [facility] Test Date: 6298-70-12Wiz Name: DORA JOSEPH Department: 5ECIPatient ID: [id number] Room: Gender: M Fagot Maker: [id number]: 1970 Requested By: DARRION Cho Number: [id number] Reading MD: Rene Patterson MeasurementsIntervals Ten Sleep Rate: 61 P: 72PR : 152 QRS: 55QRSD: 106 T: 63QT: 398 QTc: 400 Interpretive StatementsSINUS RHYTHMPOSSIBLE RIGHT VENTRICULAR CONDUCTION DELAY [RSR (QR) IN V1/V2]Electronically Signed On 01-22-2022 8:30:45 CDT by Rene RacharisseanSMSHarris Llrhye21 Lead [id number] 15:46:1012 LEAD EKG FOR [facility] Test Date: 2444-11-83Myy Name: DORA JOSEPH Department: 5ECIPatient ID: [id number] Room: Gender: M Fagot Maker: [id number]: 1970 Requested By: DARRION Cho Number: [id number] Reading MD: Rene Patterson MeasurementsIntervals Ten Sleep Rate: 61 P: 72PR:152 QRS: 55QRSD: 106 T: 63QT: 398 QTc: 400 Interpretive StatementsSINUS RHYTHMPOSSIBLE RIGHT VENTRICULAR CONDUCTION DELAY [RSR (QR) IN V1/V2]Electronically Signed On 01-22-2022 8:30:45 CDT by Rene Leonard Debbeg61 Lead [id number] 15:46:1012 LEAD EKG FOR [facility] Test Date: 4836-04-46Yom Name: DORA JOSEPH Department: 5ECIPatient ID: [id number] Room: Gender: M Fagot Maker: [id number]: 1970 Requested By: DARRION Cho Number: [id number] Reading MD: Rene Patterson MeasurementsIntervals Ten Sleep Rate: 61 P: 72PR: 152 QRS: 55QRSD: 106 T: 63QT: 398 QTc: 400 Interpretive StatementsSINUS RHYTHMPOSSIBLE RIGHT VENTR ICULAR CONDUCTION DELAY [RSR (QR) IN V1/V2]Electronically Signed On 01-22-2022 8:30:45 CDT by Rene SadiMEComparis Arieyu14 Lead [id number] 15:46:1012 LEAD EKG FOR [facility] Test Date: 6293-25-55Obp Name: DORA JOSEPH Department: 5ECIPatient ID: [id number] Room: Gender: M Fagot Maker: [id number]: 1970 Requested By: DARRION Cho Number: [id number] Reading MD: Rene Patterson MeasurementsIntervals Ten Sleep Rate: 61 P: 72PR: 152 QRS: 55QRSD: 106 T: 63QT: 398 QTc: 400 Interpretive StatementsSINUS RHYTHMPOSSIBLE RIGHT VENTRICULAR CONDUCTION DELAY [RSR (QR) IN V1/V2]Electronically Signed On 01-22-2022 8:30:45 CDT by Rene Valle Vyzuna93 Lead [id number] 15:46:1012 LEAD EKG FOR [facility] Test Date: 7251-43-20Mzs Name: DORA JOSEPH Department: 5ECIPatient ID: [id number] Room: Gender: Fagot Maker: [id number]: 1970 Requested By: DARRION Cho Number: [id number] Reading MD: Rene Patterson MeasurementsIntervals Ten Sleep Rate: 61 P: 72PR: 152 QRS: 55QRSD: 106 T: 63QT: 398 QTc: 400 Interpretive StatementsSINUS RHYTHMPOSSIBLE RIGHT VENTRICULAR CONDUCTION DELAY [RSR (QR) IN V1/V2]Electronically Signed On 01-22-2022 8:30:45 CDT by Rene SadiBluestem BrandsCompablur Group12 Lead [id number] 15:46:1012 LEAD EKG FOR [facility] Test Date: 9884-54-40Lsg Name: DORA JOSEPH Department: 5ECIPatient ID: [id number] Room: Gender: Fagot Maker: [id number]: 1970 Requested By: DARRION Cho Number: [id number] Reading MD: Rene Patterson MeasurementsIntervals Ten Sleep Rate: 61 P: 72PR: 152 QRS: 55QRSD: 106 T: 63QT: 398 QTc: 400 Interpretive StatementsSINUS RHYTHMPOSSIBLE RIGHT VENTRICULAR CONDUCTION DELAY [RSR (QR) IN V1/V2]Electronically Signed On 01-22-2022 8:30:45 CDT by Rene SadiBluestem BrandsCompa8Trip Yjyxsf10 Lead [id number] 15:46:1012 LEAD EKG FOR [facility] Test Date: 8757-33-71Wor Name: DORA JOSEPH Department: 5ECIPatient ID: [id number] Room: Gender: M Fagot Maker: [id number]: 1970 Requested By: DARRION Cho Number: [id number] Reading MD: Rene Patterson MeasurementsIntervals Ten Sleep Rate: 61 P: 72PR: 152 QRS: 55QRSD: 106 T: 63QT: 398 QTc: 400 Interpretive StatementsSINUS RHYTHMPOSSIBLE RIGHT VENT RICULAR CONDUCTION DELAY [RSR (QR) IN V1/V2]Electronically Signed On 01-22-2022 8:30:45 CDT by Rene [facility] Frkgss05 Lead [id number] 15:46:1012 LEAD EKG FOR [facility] Test Date: 6364-58-79Oec Name: DORA JOSEPH Department: 5ECIPatient ID: [id number] Room: Gender: M Fagot Maker: [id number]: 1970 Requested By: DARRION Cho Number: [id number] Reading MD: Rene Patterson MeasurementsIntervals Ten Sleep Rate: 61 P: 72PR: 152 QRS: 55QRSD: 106 T: 63QT: 398 QTc: 400 Interpretive StatementsSINUS RHYTHMPOSSIBLE RIGHT VENTRICULAR CONDUCTION DELAY [RSR (QR) IN V1/V2]Electronically Signed On 01-22-2022 8:30:45 CDT by Rene [facility] Lvrsxd70 Lead [id number] 15:46:1012 LEAD EKG FOR [facility] Test Date: 2202-00-30Crx Name: DORA JOSEPH Department: 5ECIPatient ID: [id number] Room: Gender: M Fagot Maker: [id number]: 1970 Requested By: DARRION Cho Number: [id number] Reading MD: Rene Patterson MeasurementsIntervals Ten Sleep Rate: 61 P: 72PR : 152 QRS: 55QRSD: 106 T: 63QT: 398 QTc: 400 Interpretive StatementsSINUS RHYTHMPOSSIBLE RIGHT VENTRICULAR CONDUCTION DELAY [RSR (QR) IN V1/V2]Electronically Signed On 01-22-2022 8:30:45 CDT by Rene AvitiaBluestem BrandsCompablur Group12 Lead [id number] 15:46:1012 LEAD EKG FOR [facility] Test Date: 6084-01-88Lwi Name: DORA JOSEPH Department: 5ECIPatient ID: [id number] Room: Gender: M Fagot Maker: [id number]: 1970 Requested By: DARRION Cho Number: [id number] Reading MD: Rene Patterson MeasurementsIntervals Ten Sleep Rate: 61 P: 72PR: 152 QRS: 55QRSD: 106 T: 63QT: 398 QTc: 400 Interpretive StatementsSINUS RHYTHMPOSSIBLE RIGHT VENTRICULAR CONDUCTION DELAY [RSR (QR) IN V1/V2]Electronically Signed On 01-22-2022 8:30:45 CDT by Rene Valle Vfohet59 Lead [id number] 15:46:1012 LEAD EKG FOR [facility] Test Date: 7147-22-35Fen Name: DORA JOSEPH Department: 5EPatient ID: [id number] Room: Gender: M Fagot Maker: [id number]: 1970 Requested By: DARRION Cho Number: [id number] Reading MD: Rene Patterson MeasurementsIntervals Ten Sleep Rate: 61 P: 72PR: 152 QRS: 55QRSD: 106 T: 63QT: 398 QTc: 400 Interpretive StatementsSINUS RHYTHMPOSSIBLE RIGHT VENTR ICULAR CONDUCTION DELAY [RSR (QR) IN V1/V2]Electronically Signed On 01-22-2022 8:30:45 CDT by Rene Valle Btpiur93 Lead [id number] 15:46:1012 LEAD EKG FOR [facility] Test Date: 7765-28-89Jlw Name: DORA JOSEPH Department: 5ECIPatient ID: [id number] Room: Gender: M Fagot Maker: [id number]: 1970 Requested By: DARRION Cho Number: [id number] Reading MD: Rene Patterson MeasurementsIntervals Ten Sleep Rate: 61 P: 72PR: 152 QRS: 55QRSD: 106 T: 63QT: 398 QTc: 400 Interpretive StatementsSINUS RHYTHMPOSSIBLE RIGHT VENTRICULAR CONDUCTION DELAY [RSR (QR) IN V1/V2]Electronically Signed On 01-22-2022 8:30:45 CDT by Rene RaanSMSHarris Neetmi28 Lead [id number] 15:46:1012 LEAD EKG FOR [facility] Test Date: 5732-45-20Ira Name: DORA JOSEPH Department: 5ECIPatient ID: [id number] Room: Gender: M Fagot Maker: [id number]: 1970 Requested By: DARRION Cho Number: [id number] Reading MD: Rene Patterson MeasurementsIntervals Ten Sleep Rate: 61 P: 72PR: 152 QRS: 55QRSD: 106 T: 63QT: 398 QTc: 400 Interpretive StatementsSINUS RHYTHMPOSSIBLE RIGHT VENTRICULAR CONDUCTION DELAY [RSR (QR) IN V1/V2]Electronically Signed On 01-22-2022 8:30:45 CDT by Rene RaanSBluestem BrandsHarris Vfrhdu76 Lead [id number] 15:46:1012 LEAD EKG FOR [facility] Test Date: 4628-85-38Aid Name: DORA JOSEPH Department: 5ECIPatient ID: [id number] Room: Gender: M Fagot Maker: [id number]: 1970 Requested By: DARRION Cho Number: [id number] Reading MD: Rene Patterson MeasurementsIntervals Ten Sleep Rate: 61 P: 72PR: 152 QRS: 55QRSD: 106 T: 63QT: 398 QTc: 400 Interpretive StatementsSINUS RHYTHMPOSSIBLE RIGHT VENTRICULAR CONDUCTION DELAY [RSR (QR) IN V1/V2]Electronically Signed On 01-22-2022 8:30:45 CDT by Rene [facility] Medical CenteranSBluestem BrandsHarFranciscan Health12 Lead [id number] 15:46:1012 LEAD EKG FOR [facility] Test Date: 5294-41-20Sbm Name: DORA JOSEPH Department: 5ECIPatient ID: [id number] Room: Gender: M Fagot Maker: [id number]: 1970 Requested By: DARRION Cho Number: [id number] Reading MD: Rene Patterson MeasurementsIntervals Ten Sleep Rate: 61 P: 72PR: 152 QRS: 55QRSD: 106 T: 63QT: 398 QTc: 400 Interpretive StatementsSINUS RHYTHMPOSSIBLE RIGHT VENTRI CULAR CONDUCTION DELAY [RSR (QR) IN V1/V2]Electronically Signed On 01-22-2022 8:30:45 CDT by Rene [facility] Medical CenterDebbyVeterans Health Administration12 Lead [id number] 15:46:1012 LEAD EKG FOR [facility] Test Date: 8029-34-99Ntb Name: DORA JOSEPH Department: 5ECIPatient ID: [id number] Room: Gender: M Fagot Maker: [id number]: 1970 Requested By: DARRION Cho Number: [id number] Reading MD: Rene Patterson MeasurementsIntervals Ten Sleep Rate: 61 P: 72PR: 152 QRS: 55QRSD: 106 T: 63QT: 398 QTc: 400 Interpretive StatementsSINUS RHYTHMPOSSIBLE RIGHT VENTRICULAR CONDUCTION DELAY [RSR (QR) IN V1/V2]Electronically Signed On 01-22-2022 8:30:45 CDT by PeacehealthRoboCentCollin [place] [address] Lead [id number] 15:46:1012 LEAD EKG FOR [facility] Test Date: 4285-78-80Qbb Name: DORA JOSEPH Department: 5ECIPatient ID: [id number] Room: Gender: M Fagot Maker: [id number]: 1970 Requested By: DARRION Cho Number: [id number] Reading MD: Rene Patterson MeasurementsIntervals Ten Sleep Rate: 61 P: 72PR : 152 QRS: 55QRSD: 106 T: 63QT: 398 QTc: 400 Interpretive StatementsSINUS RHYTHMPOSSIBLE RIGHT VENTRICULAR CONDUCTION DELAY [RSR (QR) IN V1/V2]Electronically Signed On 01-22-2022 8:30:45 CDT by PeacehealthDebbyOhioHealth Arthur G.H. Bing, MD, Cancer CenterV 1+2 Ab+HIV1 p24 Ag SerPl Ql [id number] 07:02:58 Test Item Value Reference Range Interpretation Comments HIV 1+2 Ab+HIV1 p24 Ag SerPl Ql IA NEGATIVE Negative (test code = 96103-3) [id number] 21:23:2512 LEAD EKG FOR [facility] Test Date: 6893-47-21Tho Name: DORA JOSEPH Department: 5520Patient ID: [id number] Room: 6I80Yhywez: M Fagot Maker: : 1970 Requested By: JESSICA AOrder Number: [id number] Reading MD: Chiara Calles MeasurementsIntervals Ten Sleep Rate: 72 P: 90PR: 157 QRS: 87QRSD: 105 T: 90QT: 360 QTc: 384 Interpretive StatementsSINUS RHYTHMPOSSIBLE RIGHT VENTRICULAR CONDUCTION DELAY [RSR (QR) IN V1/V2]EARLY REPOLARIZATION [ST ELEVATION WITH NORMALLY INFLECTED T- WAVE]Electronically Signed On 01-17-2022 13:02:30 CDT by [facility] Segminttucson medical centerKuaidi DacheAlicia [place] [address]MqeymkDUF6618-57-08 21:23:2512 LEAD EKG FOR [facility] Test Date: 4553-73-96Dnk Name: DORA JOSEPH Department: 5520Patient ID: [id number] Room: 8U02Ucggqr: M Fagot Maker: : 1970 Requested By: KARIN BASSETT AOrder Number: [id number] Reading MD: Chiara Calles MeasurementsIntervals Ten Sleep Rate: 72 P: 90PR:157 QRS: 87QRSD: 105 T: 90QT: 360 QTc: 384 Interpretive StatementsSINUS RHYTHMPOSSIBLE RIGHT VENTRICULAR CONDUCTION DELAY [RSR (QR) IN V1/V2]EARLY REPOLARIZATION [ST ELEVATION WITH NORMALLY INFLECTED T- WAVE]Electronically Signed On 01-17-2022 13:02:30 CDT by [facility] HospitalSapientEncompass Health Rehabilitation Hospital8Trip FidyviUQR8635-11-37 21:23:2512 LEAD EKG FOR [facility] Test Date: 3045-69-29Qwc Name: DORA JOSEPH Department: 5520Patient ID: [id number] Room: 0Z88Xmgqzb: M Fagot Maker: : 1970 Requested By: KARIN BASSETT AOrder Number: [id number] Reading MD: Chiara Calles MeasurementsIntervals Ten Sleep Rate: 72 P: 90PR: 157 QRS: 87QRSD: 105 T: 90QT: 360 QTc: 384 Interpretive StatementsSINUS RHYTHMPOSSIBLE RIGHT VENTRICULAR CONDUCTION DELAY [RSR (QR) IN V1/V2]EARLY REPOLARIZATION [ST ELEVATION WITH NORMALLY INFLECTED T-W AVE]Electronically Signed On 01-17-2022 13:02:30 CDT by [facility] [place] UniverseAlicia [place] [address]HdnkopWHF9095-13-53 21:23:2512 LEAD EKG FOR [facility] Test Date: 8692-20-40Qrb Name: DORA JOSEPH Department: 5520Patient ID: [id number] Room: 6O93Vouubf: M Fagot Maker: : 1970 Requested By: KARIN BASSETT AOrder Number: [id number] Reading MD: Chiara Calles MeasurementsIntervals Ten Sleep Rate: 72 P: 90PR: 157 QRS: 87QRSD: 105 T: 90QT: 360 QTc: 384 Interpretive StatementsSINUS RHYTHMPOSSIBLE RIGHT VENTRICULAR CONDUCTION DELAY [RSR (QR) IN V1/V2]EARLY REPOLARIZATION [ST ELEVATION WITH NORMALLY INFLECTED T- WAVE]Electronically Signed On 01-17-2022 13:02:30 CDT by [facility] [place] UniverseAlicia [place] [address]UmfmrpXFY5939-42-47 21:23:2512 LEAD EKG FOR [facility] Test Date: 3035-36-86Twb Name: DORA JOSEPH Department: 5520Patient ID: [id number] Room: 1Z92Dvrclg: M Fagot Maker: : 1970 Requested By: KARIN BASSETT AOrder Number: [id number] Reading MD: Chiara Calles MeasurementsIntervals Ten Sleep Rate: 72 P: 90PR: 157 QRS: 87QRSD: 105 T: 90QT: 360 QTc: 384 Interpretive StatementsSINUS RHYTHMPOSSIBLE RIGHT VENTRICULAR CONDUCTION DELAY [RSR (QR) IN V1/V2]EARLY REPOLARIZATION [ST ELEVATION WITH NORMALLY INFLECTED T- WAVE]Electronically Signed On 01-17-2022 13:02:30 CDT by [facility] [place] UniverseAlicia [place] [address]TvmmnqYRE9952-48-87 21:23:2512 LEAD EKG FOR [facility] Test Date: 4806-80-47Uxl Name: DORA JOSEPH Department: 5520Patient ID: [id number] Room: 4X55Wmymdb: M Fagot Maker: : 1970 Requested By: JESSICA AOrder Number: [id number] Reading MD: Chiara Calles MeasurementsIntervals Ten Sleep Rate: 72 P: 90PR: 157 QRS: 87QRSD: 105 T: 90QT: 360 QTc: 384 Interpretive StatementsSINUS RHYTHMPOSSIBLE RIGHT VENTRICULAR CONDUCTION DELAY [RSR (QR) IN V1/V2]EARLY REPOLARIZATION [ST ELEVATION WITH NORMALLY INFLECTEDT- WAVE]Electronically Signed On 01-17-2022 13:02:30 CDT by [facility] Medical SystemsBryan [place] [address]PiyllcKOJ1196-90-51 21:23:2512 LEAD EKG FOR [facility] Test Date: 4237-44-96Mdn Name: DORA JOSEPH Department: 5520Patient ID: [id number] Room: 0V01Fhnpvi: Fagot Maker: : 1970 Requested By: KARIN BASSETT AOrder Number: [id number] Reading MD: Chiara Calles MeasurementsIntervals Ten Sleep Rate: 72 P: 90PR:157 QRS: 87QRSD: 105 T: 90QT: 360 QTc: 384 Interpretive StatementsSINUS RHYTHMPOSSIBLE RIGHT VENTRICULAR CONDUCTION DELAY [RSR (QR) IN V1/V2]EARLY REPOLARIZATION [ST ELEVATION WITH NORMALLY INFLECTED T- WAVE]Electronically Signed On 01-17-2022 13:02:30 CDT by NOZAEncompass Health Rehabilitation Hospital8Trip HsltiaHFN4114-04-66 21:23:2512 LEAD EKG FOR [facility] Test Date: 3548-04-32Thy Name: DORA JOSEPH Department: 5520Patient ID: [id number] Room: 9L65Wkimyr: M Fagot Maker: : 1970 Requested By: KARIN BASSETT AOrder Number: [id number] Reading MD: Chiara Calles MeasurementsIntervals Ten Sleep Rate: 72 P: 90PR: 157 QRS: 87QRSD: 105 T: 90QT: 360 QTc: 384 Interpretive StatementsSINUS RHYTHMPOSSIBLE RIGHT VENTRICULAR CONDUCTION DELAY [RSR (QR) IN V1/V2]EARLY REPOLARIZATION [ST ELEVATION WITH NORMALLY INFLECTED T-W AVE]Electronically Signed On 01-17-2022 13:02:30 CDT by [place] 36496022-05-26 21:23:2512 LEAD EKG FOR [facility] Test Date: 7694-75-09Svy Name: DORA JOSEPH Department: 5520Patient ID: [id number] Room: 6V25Iqaqki: M Fagot Maker: : 1970 Requested By: KARIN BASSETT AOrder Number: [id number] Reading MD: Chiara Calles MeasurementsIntervals Ten Sleep Rate: 72 P: 90PR:157 QRS: 87QRSD: 105 T: 90QT: 360 QTc: 384 Interpretive StatementsSINUS RHYTHMPOSSIBLE RIGHT VENTRICULAR CONDUCTION DELAY [RSR (QR) IN V1/V2]EARLY REPOLARIZATION [ST ELEVATION WITH NORMALLY INFLECTED T- WAVE]Electronically Signed On 01-17-2022 13:02:30 CDT by [facility] Segminttucson medical centerKuaidi DacheAlicia [place] [address]OtdcceQJN5546-20-74 21:23:2512 LEAD EKG FOR [facility] Test Date: 6120-57-20Dos Name: DORA JOSEPH Department: 5520Patient ID: [id number] Room: 2M84Sohcgz: M Fagot Maker: : 1970 Requested By: KARIN BASSETT AOrder Number: [id number] Reading MD: Chiara Calles MeasurementsIntervals Ten Sleep Rate: 72 P: 90PR: 157 QRS: 87QRSD: 105 T: 90QT: 360 QTc: 384 Interpretive StatementsSINUS RHYTHMPOSSIBLE RIGHT VENTRICULAR CONDUCTION DELAY [RSR (QR) IN V1/V2]EARLY REPOLARIZATION [ST ELEVATION WITH NORMALLY INFLECTED T- WAVE]Electronically Signed On 01-17-2022 13:02:30 CDT by Cone HealthKuaidi DacheAlicia [place] [address]BjgqwnRPR0109-02-87 21:23:2512 LEAD EKG FOR [facility] Test Date: 2764-45-44Vxc Name: DORA JOSEPH Department: 5520Patient ID: [id number] Room: 2Q16Lzlnbm: M Fagot Maker: : 1970 Requested By: JESSICA AOrder Number: [id number] Reading MD: Chiara Calles MeasurementsIntervals Ten Sleep Rate: 72 P: 90PR: 157 QRS: 87QRSD: 105 T: 90QT: 360 QTc: 384 Interpretive StatementsSINUS RHYTHMPOSSIBLE RIGHT VENTRICULAR CONDUCTION DELAY [RSR (QR) IN V1/V2]EARLY REPOLARIZATION [ST ELEVATION WITH NORMALLY INFLECTEDT- WAVE]Electronically Signed On 01-17-2022 13:02:30 CDT by Chiara SegmintbakariKuaidi DacheAlicia [place] [address]BchcoyMYV1285-69-65 21:23:2512 LEAD EKG FOR [facility] Test Date: 9748-64-51Sto Name: DORA HOMER Department: 5520Patient ID: [id number] Room: 2S51Kmgqle: M Fagot Maker: : 1970 Requested By: KARIN BASSETT AOrder Number: [id number] Reading MD: Chiara Calles MeasurementsIntervals Ten Sleep Rate: 72 P: 90PR: 157 QRS: 87QRSD: 105 T: 90QT: 360 QTc: 384 Interpretive StatementsSINUS RHYTHMPOSSIBLE RIGHT VENTRICULAR CONDUCTION DELAY [RSR (QR) IN V1/V2]EARLY REPOLARIZATION [ST ELEVATION WITH NORMALLY INFLECTED T- WAVE]Electronically Signed On 01-17-2022 13:02:30 CDT by Chiara [facility] UniverseSanta Barbara KpcooeONR8768-27-21 21:23:2512 LEAD EKG FOR [facility] Test Date: 7030-61-55Fri Name: DORA HOMER Department: 5520Patient ID: [id number] Room: 9B48Hsxsdp: M Fagot Maker: : 1970 Requested By: KARIN BASSETT AOrder Number: [id number] Reading MD: Chiara Calles MeasurementsIntervals Ten Sleep Rate: 72 P: 90PR: 157 QRS: 87QRSD: 105 T: 90QT: 360 QTc: 384 Interpretive StatementsSINUS RHYTHMPOSSIBLE RIGHT VENTRICULAR CONDUCTION DELAY [RSR (QR) IN V1/V2]EARLY REPOLARIZATION [ST ELEVATION WITH NORMALLY INFLECTED T- WAVE]Electronically Signed On 01-17-2022 13:02:30 CDT by Chiara [facility] UniversePullman Regional HospitalWtrlkqXVA8779-15-69 21:23:2512 LEAD EKG FOR [facility] Test Date: 8069-31-29Xtn Name: DORA JOSEPH Department: 5520Patient ID: [id number] Room: 2M25Xbwmmn: M Fagot Maker: : 1970 Requested By: JESSICA AOrder Number: [id number] Reading MD: Chiara Calles MeasurementsIntervals Ten Sleep Rate: 72 P: 90PR:157 QRS: 87QRSD: 105 T: 90QT: 360 QTc: 384 Interpretive StatementsSINUS RHYTHMPOSSIBLE RIGHT VENTRICULAR CONDUCTION DELAY [RSR (QR) IN V1/V2]EARLY REPOLARIZATION [ST ELEVATION WITH NORMALLY INFLECTED T- WAVE]Electronically Signed On 01-17-2022 13:02:30 CDT by [facility] NegevtechEKG2022-05-26 21:23:2512 LEAD EKG FOR [facility] Test Date: [id number] Name: DORA JOSEPH Department: [id number] ID: [id number] Room: [id number]: M Fagot Maker: : 1970 Requested By: KARIN BASSETT AOrder Number: [id number] Reading MD: Chiara Calles MeasurementsIntervals Ten Sleep Rate: 72 P: 90PR: 157 QRS: 87QRSD: 105 T: 90QT: 360 QTc: 384 Interpretive StatementsSINUS RHYTHMPOSSIBLE RIGHT VENTRICULAR CONDUCTION DELAY [RSR (QR) IN V1/V2]EARLY REPOLARIZATION [ST ELEVATION WITH NORMALLY INFLECTEDT- WAVE]Electronically Signed On 01-17-2022 13:02:30 CDT by [facility] [place] [facility]ro[facility] UniverseEn[facility] Rehabilitation Hospitalblur [id number] 21:23:2512 LEAD EKG FOR [facility] Test Date: [id number] Name: DORA JOSEPH Department: 5520Patient ID: [id number] Room: 0G48Ogtmax: M Fagot Maker: : 1970 Requested By: KARIN BASSETT AOrder Number: [id number] Reading MD: Chiara Calles MeasurementsIntervals Ten Sleep Rate: 72 P: 90PR:157 QRS: 87QRSD: 105 T: 90QT: 360 QTc: 384 Interpretive StatementsSINUS RHYTHMPOSSIBLE RIGHT VENTRICULAR CONDUCTION DELAY [RSR (QR) IN V1/V2]EARLY REPOLARIZATION [ST ELEVATION WITH NORMALLY INFLECTED T- WAVE]Electronically Signed On 01-17-2022 13:02:30 CDT by [facility] [place] [id number] 21:23:2512 LEAD EKG FOR [facility] Test Date: 1399-97-91Yyv Name: DORA JOSEPH Department: 5520Patient ID: [id number] Room: 9N93Hqkcet: M Fagot Maker: : 1970 Requested By: KARIN BASSETT AOrder Number: [id number] Reading MD: Chiara Calles MeasurementsIntervals Ten Sleep Rate: 72 P: 90PR:157 QRS: 87QRSD: 105 T: 90QT: 360 QTc: 384 Interpretive StatementsSINUS RHYTHMPOSSIBLE RIGHT VENTRICULAR CONDUCTION DELAY [RSR (QR) IN V1/V2]EARLY REPOLARIZATION [ST ELEVATION WITH NORMALLY INFLECTED T- WAVE]Electronically Signed On 01-17-2022 13:02:30 [facility] [id number] 21:23:2512 LEAD EKG FOR [facility] Test Date: 4117-00-33Byf Name: DORA JOSEPH Department: 5520Patient ID: [id number] Room: 7L11Aviiwg: M Fagot Maker: : 1970 Requested By: KARIN BASSETT AOrder Number: [id number] Reading MD: Chiara Calles MeasurementsIntervals Ten Sleep Rate: 72 P: 90PR:157 QRS: 87QRSD: 105 T: 90QT: 360 QTc: 384 Interpretive StatementsSINUS RHYTHMPOSSIBLE RIGHT VENTRICULAR CONDUCTION DELAY [RSR (QR) IN V1/V2]EARLY REPOLARIZATION [ST ELEVATION WITH NORMALLY INFLECTED T- WAVE]Electronically Signed On 01-17-2022 13:02:30 CDT by [facility] [place] [id number] 21:23:2512 LEAD EKG FOR [facility] Test Date: 4038-58-62Abn Name: DORA JOSEPH Department: 5520Patient ID: [id number] Room: 0N73Zknpot: M Fagot Maker: : 1970 Requested By: KARIN BASSETT AOrder Number: [id number] Reading MD: Chiara Calles MeasurementsIntervals Ten Sleep Rate: 72 P: 90PR:157 QRS: 87QRSD: 105 T: 90QT: 360 QTc: 384 Interpretive StatementsSINUS RHYTHMPOSSIBLE RIGHT VENTRICULAR CONDUCTION DELAY [RSR (QR) IN V1/V2]EARLY REPOLARIZATION [ST ELEVATION WITH NORMALLY INFLECTED T- WAVE]Electronically Signed On 01-17-2022 13:02:30 CDT [facility] [id number] 21:23:2512 LEAD EKG FOR [facility] Test Date: [id number] Name: DORA JOSEPH Department: 5520Patient ID: [id number] Room: 5O32Sqkces: M Fagot Maker: : 1970 Requested By: KARIN BASSETT AOrder Number: [id number] Reading MD: Chiara Calles MeasurementsIntervals Ten Sleep Rate: 72 P: 90PR: 157 QRS: 87QRSD: 105 T: 90QT: 360 QTc: 384 Interpretive StatementsSINUS RHYTHMPOSSIBLE RIGHT VENTRICULAR CONDUCTION DELAY [RSR (QR) IN V1/V2]EARLY REPOLARIZATION [ST ELEVATION WITH NORMALLY INFLECTED T- WAVE]Electronically Signed On 01-17-2022 13:02:30 CDT by [place] [id number] 21:23:2512 LEAD EKG FOR [facility] Test Date: 3060-63-40Ucx Name: DORA PAEZRY Department: 5520Patient ID: [id number] Room: 0D20Mezeqk: M Fagot Maker: : 1970 Requested By: KARIN BASSETT AOrder Number: [id number] Reading MD: Chiara Calles MeasurementsIntervals Ten Sleep Rate: 72 P: 90PR: 157 QRS: 87QRSD: 105 T: 90QT: 360 QTc: 384 Interpretive StatementsSINUS RHYTHMPOSSIBLE RIGHT VENTRICULAR CONDUCTION DELAY [RSR (QR) IN V1/V2]EARLY REPOLARIZATION [ST ELEVATION WITH NORMALLY INFLECTED T-W AVE]Electronically Signed On 01-17-2022 13:02:30 CDT by [facility] ORF1ab Resp Ql OLENA+[id number] 19:57:49 Test Item Value Reference Range Interpretation Comments Hospitalized? (test No code = 22177-3) ICU? (test code = No 99765-5) Symptomatic as No defined by CDC? (test code = 78342-3) Employed in No Healthcare? (test code = 27003-3) Resident in a No congregate care setting (including nursing homes, residential care for people with intellectual and developmental disabilities, psychiatric treatment facilities, group homes, board and care homes, homeless snf, foster care or other): (test code = 65248-6) SARS-CoV-2 ORF1ab NOT DETECTED Not Detected INTERPRETA TION: No Resp Ql OLENA+probe detectable levels of (test code = SARS-CoV-2 85584-2) Coronavirus (COVID-19) were present in this patient's [...] SARS-CoV-2 mole cular diagnostic assa y utilizes Care Taker Mediated Amplification ( TMA) technology to r apidly detect the SARS -CoV-2 (COVID-19) viru s from respiratory adriana ples. In accordance with\\XC2A0\\the FDA's guidance docume nt "Policy for Diagnostic Test s for Coronavirus Disease-2019 du ring the Public Heal Emergency", ginger s test was developed, and its performance characteristics were verified by the [facility] molecular diagn ostics laboratory and is authorized for clinical diagno stic use. \\XC2A0\\Ginger s laboratory is certified under the Clinical Labora tory Improvement Amendments (CLI A) as qualified to pe rform high complexity clinical labora tory testing. [facility] CREATININE POC docked [id number] 13:57:55 Test Item Value Reference Range Interpretation Comments Creatinine POC (test 2.4 mg/dL 0.6-1.3 H Physici an Notified code = 44872793) eGFR (test code = 30 See_Comment L [Automate d message] 66082343) The system [employer] generated this result transmit dain reference range : >=90 mL/min/1.7 3 m2. The reference r meredith was not used to interpret this result as normal/abnormal . eGFR If Am (test 35 See_Comment L [A utomated message] code = 87089656) The system which generated this result transmit dain reference range : >=90 mL/min/1.7 3 m2. The reference r meredith was not used to interpret this result as normal/abnormal . Lab Interpretation (test Abnormal code = 89975-4) [facility] CREATININE POC docked [id number] 13:57:55 Test Item Value Reference Range Interpretation Comments Creatinine POC (test 2.4 mg/dL 0.6-1.3 H Physici an Notified code = 86746963) eGFR (test code = 30 See_Comment L [Automate d message] 33735484) The system [employer] generated this result transmit dain reference range : >=90 mL/min/1.7 3 m2. The reference r meredith was not used to interpret this result as normal/abnormal . eGFR If Am (test 35 See_Comment L [A utomated message] code = 35992437) The system which generated this result transmit dain reference range : >=90 mL/min/1.7 3 m2. The reference r meredith was not used to interpret this result as normal/abnormal . Lab Interpretation (test Abnormal code = 90260-3) [facility] CREATININE POC docked [id number] 13:57:55 Test Item Value Reference Range Interpretation Comments Creatinine POC (test 2.4 mg/dL 0.6-1.3 H Physici an Notified code = 00551620) eGFR (test code = 30 See_Comment L [Automate d message] 88928596) The system [employer] generated this result transmit dain reference range : >=90 mL/min/1.7 3 m2. The reference r meredith was not used to interpret this result as normal/abnormal . eGFR If Am (test 35 See_Comment L [A utomated message] code = 05083691) The system which generated this result transmit dain reference range : >=90 mL/min/1.7 3 m2. The reference r meredith was not used to interpret this result as normal/abnormal . Lab Interpretation (test Abnormal code = 52968-4) [facility] CREATININE POC docked [id number] 13:57:55 Test Item Value Reference Range Interpretation Comments Creatinine POC (test 2.4 mg/dL 0.6-1.3 H Physici an Notified code = 67086230) eGFR If non- Am 30 See_Comment L [Aut omated message] (test code = 59352156) The s ystem which generated this result transmit dain reference range : >=90 mL/min/1.7 3 m2. The reference r meredith was not used to interpret this result as normal/abnormal . eGFR If Am (test 35 See_Comment L [A utomated message] code = 46215410) The system which generated this result transmit dain reference range : >=90 mL/min/1.7 3 m2. The reference r meredith was not used to interpret this result as normal/abnormal . Lab Interpretation (test Abnormal code = 20047-3) [facility] CREATININE POC docked [id number] 13:57:55 Test Item Value Reference Range Interpretation Comments Creatinine POC (test 2.4 mg/dL 0.6-1.3 H Physici an Notified code = 81823734) eGFR If non- Am 30 See_Comment L [Aut omated message] (test code = 04566755) The s ystem which generated this result transmit dain reference range : >=90 mL/min/1.7 3 m2. The reference r meredith was not used to interpret this result as normal/abnormal . eGFR If Am (test 35 See_Comment L [A utomated message] code = 95018896) The system which generated this result transmit dain reference range : >=90 mL/min/1.7 3 m2. The reference r meredith was not used to interpret this result as normal/abnormal . Lab Interpretation (test Abnormal code = 70947-8) [facility] CREATININE POC docked [id number] 13:57:55 Test Item Value Reference Range Interpretation Comments Creatinine POC (test 2.4 mg/dL 0.6-1.3 H Physici an Notified code = 61173236) eGFR If non- Am 30 See_Comment L [Aut omated message] (test code = 30697350) The s ystem which generated this result transmit dain reference range : >=90 mL/min/1.7 3 m2. The reference r meredith was not used to interpret this result as normal/abnormal . eGFR If Am (test 35 See_Comment L [A utomated message] code = 98252652) The system which generated this result transmit dain reference range : >=90 mL/min/1.7 3 m2. The reference r meredith was not used to interpret this result as normal/abnormal . Lab Interpretation (test Abnormal code = 24331-7) [facility] CREATININE POC docked [id number] 13:57:55 Test Item Value Reference Range Interpretation Comments Creatinine POC (test 2.4 mg/dL 0.6-1.3 H Physici an Notified code = 64403883) eGFR If non- Am 30 See_Comment L [Aut omated message] (test code = 64782205) The s ystem which generated this result transmit dain reference range : >=90 mL/min/1.7 3 m2. The reference r meredith was not used to interpret this result as normal/abnormal . eGFR If Am (test 35 See_Comment L [A utomated message] code = 14084247) The system which generated this result transmit dain reference range : >=90 mL/min/1.7 3 m2. The reference r meredith was not used to interpret this result as normal/abnormal . Lab Interpretation (test Abnormal code = 29590-7) [facility] CREATININE POC docked [id number] 13:57:55 Test Item Value Reference Range Interpretation Comments Creatinine POC (test 2.4 mg/dL 0.6-1.3 H Physici an Notified code = 08830736) eGFR If non- Am 30 See_Comment L [Aut omated message] (test code = 80247024) The s ystem which generated this result transmit dain reference range : >=90 mL/min/1.7 3 m2. The reference r meredith was not used to interpret this result as normal/abnormal . eGFR If Am (test 35 See_Comment L [A utomated message] code = 96018851) The system which generated this result transmit dain reference range : >=90 mL/min/1.7 3 m2. The reference r meredith was not used to interpret this result as normal/abnormal . Lab Interpretation (test Abnormal code = 36350-9) [facility] CREATININE POC docked [id number] 13:57:55 Test Item Value Reference Range Interpretation Comments Creatinine POC (test 2.4 mg/dL 0.6-1.3 H Physici an Notified code = 76072863) eGFR If non- Am 30 See_Comment L [Aut omated message] (test code = 85874937) The s ystem which generated this result transmit dain reference range : >=90 mL/min/1.7 3 m2. The reference r meredith was not used to interpret this result as normal/abnormal . eGFR If Am (test 35 See_Comment L [A utomated message] code = 00720261) The system which generated this result transmit dain reference range : >=90 mL/min/1.7 3 m2. The reference r meredith was not used to interpret this result as normal/abnormal . Lab Interpretation (test Abnormal code = 28828-1) [facility] CREATININE POC docked [id number] 13:57:55 Test Item Value Reference Range Interpretation Comments Creatinine POC (test 2.4 mg/dL 0.6-1.3 H Physici an Notified code = 26505400) eGFR If non- Am 30 See_Comment L [Aut omated message] (test code = 53834976) The s ystem which generated this result transmit dain reference range : >=90 mL/min/1.7 3 m2. The reference r meredith was not used to interpret this result as normal/abnormal . eGFR If Am (test 35 See_Comment L [A utomated message] code = 22777197) The system which generated this result transmit dain reference range : >=90 mL/min/1.7 3 m2. The reference r meredith was not used to interpret this result as normal/abnormal . Lab Interpretation (test Abnormal code = 07478-3) [facility] CREATININE POC docked [id number] 13:57:55 Test Item Value Reference Range Interpretation Comments Creatinine POC (test 2.4 mg/dL 0.6-1.3 H Physici an Notified code = 31650296) eGFR If non- Am 30 See_Comment L [Aut omated message] (test code = 44737581) The s ystem which generated this result transmit dain reference range : >=90 mL/min/1.7 3 m2. The reference r meredith was not used to interpret this result as normal/abnormal . eGFR If Am (test 35 See_Comment L [A utomated message] code = 95125689) The system which generated this result transmit dain reference range : >=90 mL/min/1.7 3 m2. The reference r meredith was not used to interpret this result as normal/abnormal . Lab Interpretation (test Abnormal code = 30628-6) [facility] CREATININE POC docked [id number] 13:57:55 Test Item Value Reference Range Interpretation Comments Creatinine POC (test 2.4 mg/dL 0.6-1.3 H Physici an Notified code = 92321360) eGFR If non- Am 30 See_Comment L [Aut omated message] (test code = 07783773) The s ystem which generated this result transmit dain reference range : >=90 mL/min/1.7 3 m2. The reference r meredith was not used to interpret this result as normal/abnormal . eGFR If Am (test 35 See_Comment L [A utomated message] code = 82149244) The system which generated this result transmit dain reference range : >=90 mL/min/1.7 3 m2. The reference r meredith was not used to interpret this result as normal/abnormal . Lab Interpretation (test Abnormal code = 73466-1) [facility] P[facility] docked [id number] 13:57:55 Test Item Value Reference Range Interpretation Comments Creatinine POC (test 2.4 mg/dL 0.6-1.3 H Physici an Notified code = 11024102) eGFR If non- Am 30 See_Comment L [Aut omated message] (test code = 24200499) The s ystem which generated this result transmit dain reference range : >=90 mL/min/1.7 3 m2. The reference r meredith was not used to interpret this result as normal/abnormal . eGFR If Am (test 35 See_Comment L [A utomated message] code = 37339434) The system which generated this result transmit dain reference range : >=90 mL/min/1.7 3 m2. The reference r meredith was not used to interpret this result as normal/abnormal . Lab Interpretation (test Abnormal code = 41864-5) [facility] CREATININE POC docked [id number] 13:57:55 Test Item Value Reference Range Interpretation Comments Creatinine POC (test 2.4 mg/dL 0.6-1.3 H Physici an Notified code = 14106358) eGFR If non- Am 30 See_Comment L [Aut omated message] (test code = 22733234) The s ystem which generated this result transmit dain reference range : >=90 mL/min/1.7 3 m2. The reference r meredith was not used to interpret this result as normal/abnormal . eGFR If Am (test 35 See_Comment L [A utomated message] code = 69813990) The system which generated this result transmit dain reference range : >=90 mL/min/1.7 3 m2. The reference r meredith was not used to interpret this result as normal/abnormal . Lab Interpretation (test Abnormal code = 65163-4) [facility] CREATININE POC docked [id number] 13:57:55 Test Item Value Reference Range Interpretation Comments Creatinine POC (test 2.4 mg/dL 0.6-1.3 H Physici an Notified code = 87969462) eGFR If non- Am 30 See_Comment L [Aut omated message] (test code = 33532237) The s ystem which generated this result transmit dain reference range : >=90 mL/min/1.7 3 m2. The reference r meredith was not used to interpret this result as normal/abnormal . eGFR If Am (test 35 See_Comment L [A utomated message] code = 01854694) The system which generated this result transmit dain reference range : >=90 mL/min/1.7 3 m2. The reference r meredith was not used to interpret this result as normal/abnormal . Lab Interpretation (test Abnormal code = 25579-4) [facility] [id number] 13:57:55 Test Item Value Reference Range Interpretation Comments Creatinine POC (test 2.4 mg/dL 0.6-1.3 H Physici an Notified code = 75448641) eGFR If non- Am 30 See_Comment L [Aut omated message] (test code = 66918585) The s ystem which generated this result transmit dain reference range : >=90 mL/min/1.7 3 m2. The reference r meredith was not used to interpret this result as normal/abnormal . eGFR If Am (test 35 See_Comment L [A utomated message] code = 76269728) The system which generated this result transmit dain reference range : >=90 mL/min/1.7 3 m2. The reference r meredith was not used to interpret this result as normal/abnormal . Lab Interpretation (test Abnormal code = 37648-0) [facility] CREATININE POC docked [id number] 13:57:55 Test Item Value Reference Range Interpretation Comments Creatinine POC (test 2.4 mg/dL 0.6-1.3 H Physici an Notified code = 25097968) eGFR If non- Am 30 See_Comment L [Aut omated message] (test code = 58050821) The s ystem which generated this result transmit dain reference range : >=90 mL/min/1.7 3 m2. The reference r meredith was not used to interpret this result as normal/abnormal . eGFR If Am (test 35 See_Comment L [A utomated message] code = 92761944) The system which generated this result transmit dain reference range : >=90 mL/min/1.7 3 m2. The reference r meredith was not used to interpret this result as normal/abnormal . Lab Interpretation (test Abnormal code = 35510-9) [facility] CREATININE POC docked [id number] 13:57:55 Test Item Value Reference Range Interpretation Comments Creatinine POC (test 2.4 mg/dL 0.6-1.3 H Physici an Notified code = 88403846) eGFR If non- Am 30 See_Comment L [Aut omated message] (test code = 75147917) The s ystem which generated this result transmit dain reference range : >=90 mL/min/1.7 3 m2. The reference r meredith was not used to interpret this result as normal/abnormal . eGFR If Am (test 35 See_Comment L [A utomated message] code = 66713352) The system which generated this result transmit dain reference range : >=90 mL/min/1.7 3 m2. The reference r meredith was not used to interpret this result as normal/abnormal . Lab Interpretation (test Abnormal code = 82072-6) [email or web address] CREATININE POC docked [id number] 13:57:55 Test Item Value Reference Range Interpretation Comments Creatinine POC (test 2.4 mg/dL 0.6-1.3 H Physici an Notified code = 91234524) eGFR (test code = 30 See_Comment L [Automate d message] 36703928) The system [employer] generated this result transmit dain reference range : >=90 mL/min/1.7 3 m2. The reference r meredith was not used to interpret this result as normal/abnormal . eGFR If Am (test 35 See_Comment L [A utomated message] code = 03459203) The system which generated this result transmit dain reference range : >=90 mL/min/1.7 3 m2. The reference r meredith was not used to interpret this result as normal/abnormal . Lab Interpretation (test Abnormal code = 69642-0) [email or web address] CREATININE POC docked [id number] 13:57:55 Test Item Value Reference Range Interpretation Comments Creatinine POC (test 2.4 mg/dL 0.6-1.3 H Physici an Notified code = 92818530) eGFR (test code = 30 See_Comment L [Automate d message] 63962980) The system [employer] generated this result transmit dain reference range : >=90 mL/min/1.7 3 m2. The reference r meredith was not used to interpret this result as normal/abnormal . eGFR If Am (test 35 See_Comment L [A utomated message] code = 80383488) The system which generated this result transmit dain reference range : >=90 mL/min/1.7 3 m2. The reference r meredith was not used to interpret this result as normal/abnormal . Lab Interpretation (test Abnormal code = 07485-2) [facility] CREATININE POC docked [id number] 13:57:55 Test Item Value Reference Range Interpretation Comments Creatinine POC (test 2.4 mg/dL 0.6-1.3 H Physici an Notified code = 71583610) eGFR (test code = 30 See_Comment L [Automate d message] 67809972) The system [employer] generated this result transmit dain reference range : >=90 mL/min/1.7 3 m2. The reference r meredith was not used to interpret this result as normal/abnormal . eGFR If Am (test 35 See_Comment L [A utomated message] code = 62377403) The system which generated this result transmit dain reference range : >=90 mL/min/1.7 3 m2. The reference r meredith was not used to interpret this result as normal/abnormal . Lab Interpretation (test Abnormal code = 60323-0) [facility] BMP POC docked [id number] 13:48:46 Test Item Value Reference Range Interpretation Comments Sodium POC (test code = 126 mmol/L 136-145 L 67338867) Potassium POC (test code 4.4 mmol/L 3.5-5.1 = 16535986) Chloride POC (test code 100 mmol/L 98-107 = 23702314) TCO2 POC (test code = 17 mmol/L 21-32 L Physic aylin Notified 16436800) Urea Nitrogen POC (test 36 mg/dL 7-18 H code = 86670251) Glucose POC (test code = 114 mg/dL 74-106 H 85736250) Hemoglobin POC (test 11.9 g/dL 12-16 L code = 22047037) Hematocrit POC (test 35.0 % 37.0-47.0 L code = 54362106) Lab Interpretation (test Abnormal code = 52935-6) [facility] BMP POC docked [id number] 13:48:46 Test Item Value Reference Range Interpretation Comments Sodium POC (test code = 126 mmol/L 136-145 L 28876585) Potassium POC (test code 4.4 mmol/L 3.5-5.1 = 88637229) Chloride POC (test code 100 mmol/L 98-107 = 91280624) TCO2 POC (test code = 17 mmol/L 21-32 L Physic aylin Notified 29021187) Urea Nitrogen POC (test 36 mg/dL 7-18 H code = 74195067) Glucose POC (test code = 114 mg/dL 74-106 H 18223892) Hemoglobin POC (test 11.9 g/dL 12-16 L code = 09912039) Hematocrit POC (test 35.0 % 37.0-47.0 L code = 15570666) Lab Interpretation (test Abnormal code = 07833-2) [facility] POC docked [id number] 13:48:46 Test Item Value Reference Range Interpretation Comments Sodium POC (test code = 126 mmol/L 136-145 L 55385058) Potassium POC (test code 4.4 mmol/L 3.5-5.1 = 24873905) Chloride POC (test code 100 mmol/L 98-107 = 60360223) TCO2 POC (test code = 17 mmol/L 21-32 L Physic aylin Notified 32290807) Urea Nitrogen POC (test 36 mg/dL 7-18 H code = 50891902) Glucose POC (test code = 114 mg/dL 74-106 H 19688760) Hemoglobin POC (test 11.9 g/dL 12-16 L code = 15992340) Hematocrit POC (test 35.0 % 37.0-47.0 L code = 63646549) Lab Interpretation (test Abnormal code = 86783-4) [facility] POC docked [id number] 13:48:46 Test Item Value Reference Range Interpretation Comments Sodium POC (test code = 126 mmol/L 136-145 L 90684815) Potassium POC (test code 4.4 mmol/L 3.5-5.1 = 53713370) Chloride POC (test code 100 mmol/L 98-107 = 94142973) TCO2 POC (test code = 17 mmol/L 21-32 L Physic aylin Notified 13468817) Urea Nitrogen POC (test 36 mg/dL 7-18 H code = 06143346) Glucose POC (test code = 114 mg/dL 74-106 H 38405976) Hemoglobin POC (test 11.9 g/dL 12-16 L code = 84027883) Hematocrit POC (test 35.0 % 37.0-47.0 L code = 22587796) Lab Interpretation (test Abnormal code = 45655-2) [facility] POC docked [id number] 13:48:46 Test Item Value Reference Range Interpretation Comments Sodium POC (test code = 126 mmol/L 136-145 L 30972781) Potassium POC (test code 4.4 mmol/L 3.5-5.1 = 63278391) Chloride POC (test code 100 mmol/L 98-107 = 11308878) TCO2 POC (test code = 17 mmol/L 21-32 L Physic aylin Notified 13153290) Urea Nitrogen POC (test 36 mg/dL 7-18 H code = 67836882) Glucose POC (test code = 114 mg/dL 74-106 H 21091524) Hemoglobin POC (test 11.9 g/dL 12-16 L code = 57102163) Hematocrit POC (test 35.0 % 37.0-47.0 L code = 02751248) Lab Interpretation (test Abnormal code = 72488-2) [facility] POC docked [id number] 13:48:46 Test Item Value Reference Range Interpretation Comments Sodium POC (test code = 126 mmol/L 136-145 L 49684485) Potassium POC (test code 4.4 mmol/L 3.5-5.1 = 97437439) Chloride POC (test code 100 mmol/L 98-107 = 93784341) TCO2 POC (test code = 17 mmol/L 21-32 L Physic yalin Notified 33221423) Urea Nitrogen POC (test 36 mg/dL 7-18 H code = 46040903) Glucose POC (test code = 114 mg/dL 74-106 H 80743422) Hemoglobin POC (test 11.9 g/dL 12-16 L code = 87185892) Hematocrit POC (test 35.0 % 37.0-47.0 L code = 83572816) Lab Interpretation (test Abnormal code = 34218-8) [facility] POC docked [id number] 13:48:46 Test Item Value Reference Range Interpretation Comments Sodium POC (test code = 126 mmol/L 136-145 L 32943256) Potassium POC (test code 4.4 mmol/L 3.5-5.1 = 17751169) Chloride POC (test code 100 mmol/L 98-107 = 23809460) TCO2 POC (test code = 17 mmol/L 21-32 L Physic aylin Notified 68023326) Urea Nitrogen POC (test 36 mg/dL 7-18 H code = 19763506) Glucose POC (test code = 114 mg/dL 74-106 H 79420565) Hemoglobin POC (test 11.9 g/dL 12-16 L code = 41384429) Hematocrit POC (test 35.0 % 37.0-47.0 L code = 26388262) Lab Interpretation (test Abnormal code = 81931-9) [facility] POC docked [id number] 13:48:46 Test Item Value Reference Range Interpretation Comments Sodium POC (test code = 126 mmol/L 136-145 L 64562629) Potassium POC (test code 4.4 mmol/L 3.5-5.1 = 15978124) Chloride POC (test code 100 mmol/L 98-107 = 67451716) TCO2 POC (test code = 17 mmol/L 21-32 L Physic aylin Notified 55361224) Urea Nitrogen POC (test 36 mg/dL 7-18 H code = 63760546) Glucose POC (test code = 114 mg/dL 74-106 H 88821853) Hemoglobin POC (test 11.9 g/dL 12-16 L code = 67279642) Hematocrit POC (test 35.0 % 37.0-47.0 L code = 24090398) Lab Interpretation (test Abnormal code = 68765-0) [facility] POC docked [id number] 13:48:46 Test Item Value Reference Range Interpretation Comments Sodium POC (test code = 126 mmol/L 136-145 L 56703059) Potassium POC (test code 4.4 mmol/L 3.5-5.1 = 77834006) Chloride POC (test code 100 mmol/L 98-107 = 42492258) TCO2 POC (test code = 17 mmol/L 21-32 L Physic aylin Notified 82262437) Urea Nitrogen POC (test 36 mg/dL 7-18 H code = 09347494) Glucose POC (test code = 114 mg/dL 74-106 H 97320940) Hemoglobin POC (test 11.9 g/dL 12-16 L code = 08706467) Hematocrit POC (test 35.0 % 37.0-47.0 L code = 35927537) Lab Interpretation (test Abnormal code = 69874-0) [facility] POC docked [id number] 13:48:46 Test Item Value Reference Range Interpretation Comments Sodium POC (test code = 126 mmol/L 136-145 L 59543425) Potassium POC (test code 4.4 mmol/L 3.5-5.1 = 00654292) Chloride POC (test code 100 mmol/L 98-107 = 18905983) TCO2 POC (test code = 17 mmol/L 21-32 L Physic aylin Notified 67564271) Urea Nitrogen POC (test 36 mg/dL 7-18 H code = 34777915) Glucose POC (test code = 114 mg/dL 74-106 H 58046959) Hemoglobin POC (test 11.9 g/dL 12-16 L code = 79512317) Hematocrit POC (test 35.0 % 37.0-47.0 L code = 78815075) Lab Interpretation (test Abnormal code = 55002-0) [facility] POC docked [id number] 13:48:46 Test Item Value Reference Range Interpretation Comments Sodium POC (test code = 126 mmol/L 136-145 L 00984246) Potassium POC (test code 4.4 mmol/L 3.5-5.1 = 87434881) Chloride POC (test code 100 mmol/L 98-107 = 71065173) TCO2 POC (test code = 17 mmol/L 21-32 L Physic aylin Notified 51595759) Urea Nitrogen POC (test 36 mg/dL 7-18 H code = 45252677) Glucose POC (test code = 114 mg/dL 74-106 H 63099076) Hemoglobin POC (test 11.9 g/dL 12-16 L code = 34030646) Hematocrit POC (test 35.0 % 37.0-47.0 L code = 31844498) Lab Interpretation (test Abnormal code = 70027-2) [facility] POC docked [id number] 13:48:46 Test Item Value Reference Range Interpretation Comments Sodium POC (test code = 126 mmol/L 136-145 L 75714461) Potassium POC (test code 4.4 mmol/L 3.5-5.1 = 51474218) Chloride POC (test code 100 mmol/L 98-107 = 59038114) TCO2 POC (test code = 17 mmol/L 21-32 L Physic aylin Notified 93871310) Urea Nitrogen POC (test 36 mg/dL 7-18 H code = 75695656) Glucose POC (test code = 114 mg/dL 74-106 H 52080232) Hemoglobin POC (test 11.9 g/dL 12-16 L code = 07636512) Hematocrit POC (test 35.0 % 37.0-47.0 L code = 74856566) Lab Interpretation (test Abnormal code = 24987-2) [facility] POC docked [id number] 13:48:46 Test Item Value Reference Range Interpretation Comments Sodium POC (test code = 126 mmol/L 136-145 L 73366655) Potassium POC (test code 4.4 mmol/L 3.5-5.1 = 87132836) Chloride POC (test code 100 mmol/L 98-107 = 38194815) TCO2 POC (test code = 17 mmol/L 21-32 L Physic aylin Notified 62567451) Urea Nitrogen POC (test 36 mg/dL 7-18 H code = 43284500) Glucose POC (test code = 114 mg/dL 74-106 H 67495862) Hemoglobin POC (test 11.9 g/dL 12-16 L code = 69273723) Hematocrit POC (test 35.0 % 37.0-47.0 L code = 81837381) Lab Interpretation (test Abnormal code = 57566-7) [facility] POC docked [id number] 13:48:46 Test Item Value Reference Range Interpretation Comments Sodium POC (test code = 126 mmol/L 136-145 L 70571900) Potassium POC (test code 4.4 mmol/L 3.5-5.1 = 21904521) Chloride POC (test code 100 mmol/L 98-107 = 46117531) TCO2 POC (test code = 17 mmol/L 21-32 L Physic aylin Notified 72891427) Urea Nitrogen POC (test 36 mg/dL 7-18 H code = 60399676) Glucose POC (test code = 114 mg/dL 74-106 H 24728468) Hemoglobin POC (test 11.9 g/dL 12-16 L code = 84284925) Hematocrit POC (test 35.0 % 37.0-47.0 L code = 70589414) Lab Interpretation (test Abnormal code = 98764-9) [facility] POC docked [id number] 13:48:46 Test Item Value Reference Range Interpretation Comments Sodium POC (test code = 126 mmol/L 136-145 L 38916192) Potassium POC (test code 4.4 mmol/L 3.5-5.1 = 93973877) Chloride POC (test code 100 mmol/L 98-107 = 04295218) TCO2 POC (test code = 17 mmol/L 21-32 L Physic aylin Notified 57084636) Urea Nitrogen POC (test 36 mg/dL 7-18 H code = 29882801) Glucose POC (test code = 114 mg/dL 74-106 H 42834128) Hemoglobin POC (test 11.9 g/dL 12-16 L code = 32194682) Hematocrit POC (test 35.0 % 37.0-47.0 L code = 49676665) Lab Interpretation (test Abnormal code = 35201-7) [facility] BMP POC docked [id number] 13:48:46 Test Item Value Reference Range Interpretation Comments Sodium POC (test code = 126 mmol/L 136-145 L 62901372) Potassium POC (test code 4.4 mmol/L 3.5-5.1 = 97663009) Chloride POC (test code 100 mmol/L 98-107 = 02788268) TCO2 POC (test code = 17 mmol/L 21-32 L Physic aylin Notified 16056024) Urea Nitrogen POC (test 36 mg/dL 7-18 H code = 55621756) Glucose POC (test code = 114 mg/dL 74-106 H 84072574) Hemoglobin POC (test 11.9 g/dL 12-16 L code = 62886575) Hematocrit POC (test 35.0 % 37.0-47.0 L code = 53934520) Lab Interpretation (test Abnormal code = 23329-5) [facility] POC docked [id number] 13:48:46 Test Item Value Reference Range Interpretation Comments Sodium POC (test code = 126 mmol/L 136-145 L 13100736) Potassium POC (test code 4.4 mmol/L 3.5-5.1 = 62271250) Chloride POC (test code 100 mmol/L 98-107 = 18172406) TCO2 POC (test code = 17 mmol/L 21-32 L Physic aylni Notified 06156921) Urea Nitrogen POC (test 36 mg/dL 7-18 H code = 11510208) Glucose POC (test code = 114 mg/dL 74-106 H 89428150) Hemoglobin POC (test 11.9 g/dL 12-16 L code = 86813802) Hematocrit POC (test 35.0 % 37.0-47.0 L code = 65858022) Lab Interpretation (test Abnormal code = 12537-5) [facility] POC docked [id number] 13:48:46 Test Item Value Reference Range Interpretation Comments Sodium POC (test code = 126 mmol/L 136-145 L 14181840) Potassium POC (test code 4.4 mmol/L 3.5-5.1 = 67277785) Chloride POC (test code 100 mmol/L 98-107 = 90210998) TCO2 POC (test code = 17 mmol/L 21-32 L Physic aylin Notified 50601400) Urea Nitrogen POC (test 36 mg/dL 7-18 H code = 58141798) Glucose POC (test code = 114 mg/dL 74-106 H 20865846) Hemoglobin POC (test 11.9 g/dL 12-16 L code = 67707694) Hematocrit POC (test 35.0 % 37.0-47.0 L code = 58172174) Lab Interpretation (test Abnormal code = 35380-6) [facility] POC docked [id number] 13:48:46 Test Item Value Reference Range Interpretation Comments Sodium POC (test code = 126 mmol/L 136-145 L 79247477) Potassium POC (test code 4.4 mmol/L 3.5-5.1 = 68689589) Chloride POC (test code 100 mmol/L 98-107 = 26210974) TCO2 POC (test code = 17 mmol/L 21-32 L Physic aylin Notified 50750616) Urea Nitrogen POC (test 36 mg/dL 7-18 H code = 89201965) Glucose POC (test code = 114 mg/dL 74-106 H 98366650) Hemoglobin POC (test 11.9 g/dL 12-16 L code = 64904405) Hematocrit POC (test 35.0 % 37.0-47.0 L code = 09328741) Lab Interpretation (test Abnormal code = 56526-4) [facility] POC docked [id number] 13:48:46 Test Item Value Reference Range Interpretation Comments Sodium POC (test code = 126 mmol/L 136-145 L 72708456) Potassium POC (test code 4.4 mmol/L 3.5-5.1 = 76653852) Chloride POC (test code 100 mmol/L 98-107 = 47096767) TCO2 POC (test code = 17 mmol/L 21-32 L Physic aylin Notified 93487271) Urea Nitrogen POC (test 36 mg/dL 7-18 H code = 74911240) Glucose POC (test code = 114 mg/dL 74-106 H 48464888) Hemoglobin POC (test 11.9 g/dL 12-16 L code = 13001531) Hematocrit POC (test 35.0 % 37.0-47.0 L code = 08872397) Lab Interpretation (test Abnormal code = 27396-5) [facility] POC docked [id number] 13:48:46 Test Item Value Reference Range Interpretation Comments Sodium POC (test code = 126 mmol/L 136-145 L 58805380) Potassium POC (test code 4.4 mmol/L 3.5-5.1 = 13720761) Chloride POC (test code 100 mmol/L 98-107 = 28075530) TCO2 POC (test code = 17 mmol/L 21-32 L Physic aylin Notified 88226143) Urea Nitrogen POC (test 36 mg/dL 7-18 H code = 40380056) Glucose POC (test code = 114 mg/dL 74-106 H 74252313) Hemoglobin POC (test 11.9 g/dL 12-16 L code = 27459061) Hematocrit POC (test 35.0 % 37.0-47.0 L code = 30688391) Lab Interpretation (test Abnormal code = 21989-7) Maged Bobo-CoV-2 ORF1ab Resp Ql OLENA+[id number] 20:25:16 Test Item Value Reference Range Interpretation Comments Hospitalized? (test No code = 30267-9) ICU? (test code = No 05611-8) Symptomatic as No defined by CDC? (test code = 00084-6) Employed in No Healthcare? (test code = 76949-6) Resident in a No congregate care setting (including nursing homes, residential care for people with intellectual and developmental disabilities, psychiatric treatment facilities, group homes, board and care homes, homeless snf, foster care or other): (test code = 87132-1) SARS-CoV-2 ORF1ab NOT DETECTED Not Detected INTERPRETA TION: No Resp Ql OLENA+probe detectable levels of (test code = SARS-CoV-2 67380-3) Coronavirus (COVID-19) were present in this patient's [...] SARS-CoV-2 mole cular diagnostic assa y utilizes Care Taker Mediated Amplification ( TMA) technology to r apidly detect the SARS -CoV-2 (COVID-19) viru s from respiratory adriana ples. In accordance with\\XC2A0\\the FDA's guidance docume nt "Policy for Diagnostic Test s for Coronavirus Disease-2019 du ring the Public Heal Emergency", thi s test was developed, and its performance characteristics were verified by the [facility] molecular diagn ostics laboratory and is authorized for clinical diagno stic use. \\XC2A0\\Thi s laboratory is certified under the Clinical Labora tory Improvement Amendments (CLI A) as qualified to pe rform high complexity clinical labora tory testing. [facility] POC docked [id number] 11:16:15 Test Item Value Reference Range Interpretation Comments pH, Pankaj POC (test code 7.32 7.33-7.43 L = 05043464) pCO2,Pankaj POC (test code 31.0 See_Comment L [Au tomated = 82897514) message] The sy stem which generated this result transmitted reference range : 38 - 50 mmHg. The reference range was not used to interpret this result as normal/abnormal . PO2, Venous POC (BKR) 44 See_Comment L [Auto mated (test code = 96734927) messa ge] The system which generated this result transmitted reference range : 50 - 75 mm Hg. The reference range was not used to interpret this result as normal/abnormal . Ionized Calcium POC 1.24 mmol/L 1.15-1.29 (test code = 04643219) HCO3, Pankaj POC (test 16 mmol/L 22-26 L code = 61776550) TCO2 POC (test code = 17 mmol/L 21-32 L 13984923) Base Deficit, Pankaj POC -9 (test code = 30034587) Sample Type (test code IVFLORENCE Physi erik Notified = 15311259) % Sat, Pankaj POC (test 77 % code = 58224547) Lab Interpretation Abnormal (test code = 56240-5) [facility] POC docked [id number] 11:16:15 Test Item Value Reference Range Interpretation Comments pH, Pankaj POC (test code 7.32 7.33-7.43 L = 26051456) pCO2,Pankaj POC (test code 31.0 See_Comment L [Au tomated = 71913807) message] The sy stem which generated this result transmitted reference range : 38 - 50 mmHg. The reference range was not used to interpret this result as normal/abnormal . PO2, Venous POC (BKR) 44 See_Comment L [Auto mated (test code = 45530833) messa ge] The system which generated this result transmitted reference range : 50 - 75 mm Hg. The reference range was not used to interpret this result as normal/abnormal . Ionized Calcium POC 1.24 mmol/L 1.15-1.29 (test code = 25265213) HCO3, Pankaj POC (test 16 mmol/L 22-26 L code = 24936433) TCO2 POC (test code = 17 mmol/L 21-32 L 50618228) Base Deficit, Pankaj POC -9 (test code = 68755811) Sample Type (test code IVEN Physi erik Notified = 06054402) % Sat, Pankaj POC (test 77 % code = 82338330) Lab Interpretation Abnormal (test code = 80156-0) [facility] POC docked [id number] 11:16:15 Test Item Value Reference Range Interpretation Comments pH, Pankaj POC (test code 7.32 7.33-7.43 L = 84989629) pCO2,Pankaj POC (test code 31.0 See_Comment L [Au tomated = 80916544) message] The sy stem which generated this result transmitted reference range : 38 - 50 mmHg. The reference range was not used to interpret this result as normal/abnormal . PO2, Venous POC (BKR) 44 See_Comment L [Auto mated (test code = 24434743) Gloople ge] The system which generated this result transmitted reference range : 50 - 75 mm Hg. The reference range was not used to interpret this result as normal/abnormal . Ionized Calcium POC 1.24 mmol/L 1.15-1.29 (test code = 89496247) HCO3, Pankaj POC (test 16 mmol/L 22-26 L code = 77625713) TCO2 POC (test code = 17 mmol/L 21-32 L 04252239) Base Deficit, Pankaj POC -9 (test code = 19350597) Sample Type (test code IVEN Physi erik Notified = 16663334) % Sat, Pankaj POC (test 77 % code = 07141188) Lab Interpretation Abnormal (test code = 81095-8) [facility] POC docked [id number] 11:16:15 Test Item Value Reference Range Interpretation Comments pH, Pankaj POC (test code 7.32 7.33-7.43 L = 42549764) pCO2,Pankaj POC (test code 31.0 See_Comment L [Au tomated = 08380122) message] The sy stem which generated this result transmitted reference range : 38 - 50 mmHg. The reference range was not used to interpret this result as normal/abnormal . PO2, Venous POC (BKR) 44 See_Comment L [Auto mated (test code = 84244727) Bizzbya ge] The system which generated this result transmitted reference range : 50 - 75 mm Hg. The reference range was not used to interpret this result as normal/abnormal . Ionized Calcium POC 1.24 mmol/L 1.15-1.29 (test code = 35706383) HCO3, Pankaj POC (test 16 mmol/L 22-26 L code = 43534660) TCO2 POC (test code = 17 mmol/L 21-32 L 38098837) Base Deficit, Pankaj POC -9 (test code = 17038133) Sample Type (test code IVEN Physi erik Notified = 38076456) % Sat, Pankaj POC (test 77 % code = 53808033) Lab Interpretation Abnormal (test code = 88705-4) [facility] POC docked [id number] 11:16:15 Test Item Value Reference Range Interpretation Comments pH, Pankaj POC (test code 7.32 7.33-7.43 L = 01363319) pCO2,Pankaj POC (test code 31.0 See_Comment L [Au tomated = 39817131) message] The sy stem which generated this result transmitted reference range : 38 - 50 mmHg. The reference range was not used to interpret this result as normal/abnormal . PO2, Venous POC (BKR) 44 See_Comment L [Auto mated (test code = 44404173) [employer]izzbya [email or web address]] The system which generated this result transmitted reference range : 50 - 75 mm Hg. The reference range was not used to interpret this result as normal/abnormal . Ionized Calcium POC 1.24 mmol/L 1.15-1.29 (test code = 30492261) HCO3, Pankaj POC (test 16 mmol/L 22-26 L code = 31464267) TCO2 POC (test code = 17 mmol/L 21-32 L 98142342) Base Deficit, Pankaj POC -9 (test code = 32929369) Sample Type (test code IVEN Physi erik Notified = 80357717) % Sat, Pankaj POC (test 77 % code = 73862345) Lab Interpretation Abnormal (test code = 37493-5) [facility] POC docked [id number] 11:16:15 Test Item Value Reference Range Interpretation Comments pH, Pankaj POC (test code 7.32 7.33-7.43 L = 58418326) pCO2,Pankaj POC (test code 31.0 See_Comment L [Au tomated = 85860214) message] The sy stem which generated this result transmitted reference range : 38 - 50 mmHg. The reference range was not used to interpret this result as normal/abnormal . PO2, Venous POC (BKR) 44 See_Comment L [Auto mated (test code = 38673519) messa ge] The system which generated this result transmitted reference range : 50 - 75 mm Hg. The reference range was not used to interpret this result as normal/abnormal . Ionized Calcium POC 1.24 mmol/L 1.15-1.29 (test code = 49613694) HCO3, Pankaj POC (test 16 mmol/L 22-26 L code = 42531617) TCO2 POC (test code = 17 mmol/L 21-32 L 07439255) Base Deficit, Pankaj POC -9 (test code = 55954641) Sample Type (test code IVFLORENCE Physi erik Notified = 87540313) % Sat, Pankaj POC (test 77 % code = 32934775) Lab Interpretation Abnormal (test code = 17426-1) [facility] POC docked [id number] 11:16:15 Test Item Value Reference Range Interpretation Comments pH, Pankaj POC (test code 7.32 7.33-7.43 L = 47601388) pCO2,Pankaj POC (test code 31.0 See_Comment L [Au tomated = 58192452) message] The sy stem which generated this result transmitted reference range : 38 - 50 mmHg. The reference range was not used to interpret this result as normal/abnormal . PO2, Venous POC (BKR) 44 See_Comment L [Auto mated (test code = 36306966) messa ge] The system which generated this result transmitted reference range : 50 - 75 mm Hg. The reference range was not used to interpret this result as normal/abnormal . Ionized Calcium POC 1.24 mmol/L 1.15-1.29 (test code = 38088250) HCO3, Pankaj POC (test 16 mmol/L 22-26 L code = 78909931) TCO2 POC (test code = 17 mmol/L 21-32 L 96449182) Base Deficit, Pankaj POC -9 (test code = 67033663) Sample Type (test code STEPAN valencia Notified = 13572969) % Sat, Pankaj POC (test 77 % code = 81715493) Lab Interpretation Abnormal (test code = 16146-9) [facility] POC docked [id number] 11:16:15 Test Item Value Reference Range Interpretation Comments pH, Pankaj POC (test code 7.32 7.33-7.43 L = 67474558) pCO2,Pankaj POC (test code 31.0 See_Comment L [Au tomated = 55858536) message] The sy stem which generated this result transmitted reference range : 38 - 50 mmHg. The reference range was not used to interpret this result as normal/abnormal . PO2, Venous POC (BKR) 44 See_Comment L [Auto mated (test code = 52764778) [employer]] The system which generated this result transmitted reference range : 50 - 75 mm Hg. The reference range was not used to interpret this result as normal/abnormal . Ionized Calcium POC 1.24 mmol/L 1.15-1.29 (test code = 22987555) HCO3, Pankaj POC (test 16 mmol/L 22-26 L code = 77303206) TCO2 POC (test code = 17 mmol/L 21-32 L 48830744) Base Deficit, Pankaj POC -9 (test code = 96340538) Sample Type (test code STEPAN valencia Notified = 72301763) % Sat, Pankaj POC (test 77 % code = 97901456) Lab Interpretation Abnormal (test code = 73664-3) [facility] POC docked [id number] 11:16:15 Test Item Value Reference Range Interpretation Comments pH, Pankaj POC (test code 7.32 7.33-7.43 L = 76999161) pCO2,Pankaj POC (test code 31.0 See_Comment L [Au tomated = 61873609) message] The sy stem which generated this result transmitted reference range : 38 - 50 mmHg. The reference range was not used to interpret this result as normal/abnormal . PO2, Venous POC (BKR) 44 See_Comment L [Auto mated (test code = 29997680) [employer]] The system which generated this result transmitted reference range : 50 - 75 mm Hg. The reference range was not used to interpret this result as normal/abnormal . Ionized Calcium POC 1.24 mmol/L 1.15-1.29 (test code = 18331358) HCO3, Pankaj POC (test 16 mmol/L 22-26 L code = 23711841) TCO2 POC (test code = 17 mmol/L 21-32 L 30763919) Base Deficit, Pankaj POC -9 (test code = 10029814) Sample Type (test code IVFLORENCE Physi erik Notified = 81956467) % Sat, Pankaj POC (test 77 % code = 20106879) Lab Interpretation Abnormal (test code = 56303-3) [facility] POC docked [id number] 11:16:15 Test Item Value Reference Range Interpretation Comments pH, Pankaj POC (test code 7.32 7.33-7.43 L = 00457812) pCO2,Pankaj POC (test code 31.0 See_Comment L [Au tomated = 39801938) message] The sy stem which generated this result transmitted reference range : 38 - 50 mmHg. The reference range was not used to interpret this result as normal/abnormal . PO2, Venous POC (BKR) 44 See_Comment L [Auto mated (test code = 72416428) [employer]] The system which generated this result transmitted reference range : 50 - 75 mm Hg. The reference range was not used to interpret this result as normal/abnormal . Ionized Calcium POC 1.24 mmol/L 1.15-1.29 (test code = 04834718) HCO3, Pankaj POC (test 16 mmol/L 22-26 L code = 65567607) TCO2 POC (test code = 17 mmol/L 21-32 L 91667384) Base Deficit, Pankaj POC -9 (test code = 15299637) Sample Type (test code IVEN Physi erik Notified = 83742777) % Sat, Pankaj POC (test 77 % code = 88012771) Lab Interpretation Abnormal (test code = 22096-9) [facility] POC docked [id number] 11:16:15 Test Item Value Reference Range Interpretation Comments pH, Pankaj POC (test code 7.32 7.33-7.43 L = 69041507) pCO2,Pankaj POC (test code 31.0 See_Comment L [Au tomated = 13785281) message] The sy stem which generated this result transmitted reference range : 38 - 50 mmHg. The reference range was not used to interpret this result as normal/abnormal . PO2, Venous POC (BKR) 44 See_Comment L [Auto mated (test code = 95203665) Bizzbya ge] The system which generated this result transmitted reference range : 50 - 75 mm Hg. The reference range was not used to interpret this result as normal/abnormal . Ionized Calcium POC 1.24 mmol/L 1.15-1.29 (test code = 38075889) HCO3, Pankaj POC (test 16 mmol/L 22-26 L code = 85426079) TCO2 POC (test code = 17 mmol/L 21-32 L 86880120) Base Deficit, Pankaj POC -9 (test code = 86111724) Sample Type (test code IVEN Physi erik Notified = 05994237) % Sat, Pankaj POC (test 77 % code = 63457239) Lab Interpretation Abnormal (test code = 06286-1) [facility] POC docked [id number] 11:16:15 Test Item Value Reference Range Interpretation Comments pH, Pankaj POC (test code 7.32 7.33-7.43 L = 90332202) pCO2,Pankaj POC (test code 31.0 See_Comment L [Au tomated = 37871961) message] The sy stem which generated this result transmitted reference range : 38 - 50 mmHg. The reference range was not used to interpret this result as normal/abnormal . PO2, Venous POC (BKR) 44 See_Comment L [Auto mated (test code = 11965746) Bizzbya ge] The system which generated this result transmitted reference range : 50 - 75 mm Hg. The reference range was not used to interpret this result as normal/abnormal . Ionized Calcium POC 1.24 mmol/L 1.15-1.29 (test code = 75115366) HCO3, Pankaj POC (test 16 mmol/L 22-26 L code = 21768280) TCO2 POC (test code = 17 mmol/L 21-32 L 56881413) Base Deficit, Pankaj POC -9 (test code = 14436937) Sample Type (test code IVEN Physi erik Notified = 02874897) % Sat, Pankaj POC (test 77 % code = 50617369) Lab Interpretation Abnormal (test code = 64221-0) [facility] VBG POC docked [id number] 11:16:15 Test Item Value Reference Range Interpretation Comments pH, Pankaj POC (test code 7.32 7.33-7.43 L = 77797484) pCO2,Pankaj POC (test code 31.0 See_Comment L [Au tomated = 45426638) message] The sy stem which generated this result transmitted reference range : 38 - 50 mmHg. The reference range was not used to interpret this result as normal/abnormal . PO2, Venous POC (BKR) 44 See_Comment L [Auto mated (test code = 20536243) messa ge] The system which generated this result transmitted reference range : 50 - 75 mm Hg. The reference range was not used to interpret this result as normal/abnormal . Ionized Calcium POC 1.24 mmol/L 1.15-1.29 (test code = 89454133) HCO3, Pankaj POC (test 16 mmol/L 22-26 L code = 77061595) TCO2 POC (test code = 17 mmol/L 21-32 L 64504440) Base Deficit, Pankaj POC -9 (test code = 24242563) Sample Type (test code STEPAN valencia Notified = 80606361) % Sat, Pankaj POC (test 77 % code = 32737145) Lab Interpretation Abnormal (test code = 38394-7) [facility] POC docked [id number] 11:16:15 Test Item Value Reference Range Interpretation Comments pH, Pankaj POC (test code 7.32 7.33-7.43 L = 40447617) pCO2,Pankaj POC (test code 31.0 See_Comment L [Au tomated = 80382802) message] The sy stem which generated this result transmitted reference range : 38 - 50 mmHg. The reference range was not used to interpret this result as normal/abnormal . PO2, Venous POC (BKR) 44 See_Comment L [Auto mated (test code = 03725121) messa ge] The system which generated this result transmitted reference range : 50 - 75 mm Hg. The reference range was not used to interpret this result as normal/abnormal . Ionized Calcium POC 1.24 mmol/L 1.15-1.29 (test code = 22046464) HCO3, Pankaj POC (test 16 mmol/L 22-26 L code = 41488016) TCO2 POC (test code = 17 mmol/L 21-32 L 30269064) Base Deficit, Pankaj POC -9 (test code = 09431033) Sample Type (test code STEPAN valencia Notified = 78655934) % Sat, Pankaj POC (test 77 % code = 78599609) Lab Interpretation Abnormal (test code = 13658-1) [facility] VBG POC docked [id number] 11:16:15 Test Item Value Reference Range Interpretation Comments pH, Pankaj POC (test code 7.32 7.33-7.43 L = 20128068) pCO2,Pankaj POC (test code 31.0 See_Comment L [Au tomated = 92330123) message] The sy stem which generated this result transmitted reference range : 38 - 50 mmHg. The reference range was not used to interpret this result as normal/abnormal . PO2, Venous POC (BKR) 44 See_Comment L [Auto mated (test code = 75506903) Gloople ge] The system which generated this result transmitted reference range : 50 - 75 mm Hg. The reference range was not used to interpret this result as normal/abnormal . Ionized Calcium POC 1.24 mmol/L 1.15-1.29 (test code = 25611227) HCO3, Pankaj POC (test 16 mmol/L 22-26 L code = 03760103) TCO2 POC (test code = 17 mmol/L 21-32 L 74971460) Base Deficit, Pankaj POC -9 (test code = 90146311) Sample Type (test code STEPAN valencia Notified = 44377945) % Sat, Pankaj POC (test 77 % code = 78016797) Lab Interpretation Abnormal (test code = 40044-7) [facility] VBG POC docked [id number] 11:16:15 Test Item Value Reference Range Interpretation Comments pH, Pankaj POC (test code 7.32 7.33-7.43 L = 44480093) pCO2,Pankaj POC (test code 31.0 See_Comment L [Au tomated = 19287770) message] The sy stem which generated this result transmitted reference range : 38 - 50 mmHg. The reference range was not used to interpret this result as normal/abnormal . PO2, Venous POC (BKR) 44 See_Comment L [Auto mated (test code = 25639164) Bizzbya ge] The system which generated this result transmitted reference range : 50 - 75 mm Hg. The reference range was not used to interpret this result as normal/abnormal . Ionized Calcium POC 1.24 mmol/L 1.15-1.29 (test code = 90166878) HCO3, Pankaj POC (test 16 mmol/L 22-26 L code = 32421706) TCO2 POC (test code = 17 mmol/L 21-32 L 13256203) Base Deficit, Pankaj POC -9 (test code = 00926722) Sample Type (test code IVEN Physi erik Notified = 29093028) % Sat, Pankaj POC (test 77 % code = 15556599) Lab Interpretation Abnormal (test code = 12685-1) [facility] VBG POC docked [id number] 11:16:15 Test Item Value Reference Range Interpretation Comments pH, Pankaj POC (test code 7.32 7.33-7.43 L = 61668866) pCO2,Pankaj POC (test code 31.0 See_Comment L [Au tomated = 71135885) message] The sy stem which generated this result transmitted reference range : 38 - 50 mmHg. The reference range was not used to interpret this result as normal/abnormal . PO2, Venous POC (BKR) 44 See_Comment L [Auto mated (test code = 32459623) Bizzbya ge] The system which generated this result transmitted reference range : 50 - 75 mm Hg. The reference range was not used to interpret this result as normal/abnormal . Ionized Calcium POC 1.24 mmol/L 1.15-1.29 (test code = 44334963) HCO3, Pankaj POC (test 16 mmol/L 22-26 L code = 53058954) TCO2 POC (test code = 17 mmol/L 21-32 L 95023812) Base Deficit, Pankaj POC -9 (test code = 55112488) Sample Type (test code IVEN Physi erik Notified = 41644410) % Sat, Pankaj POC (test 77 % code = 08161737) Lab Interpretation Abnormal (test code = 63423-5) [facility] VBG POC docked [id number] 11:16:15 Test Item Value Reference Range Interpretation Comments pH, Pankaj POC (test code 7.32 7.33-7.43 L = 55206325) pCO2,Pankaj POC (test code 31.0 See_Comment L [Au tomated = 23078253) message] The sy stem which generated this result transmitted reference range : 38 - 50 mmHg. The reference range was not used to interpret this result as normal/abnormal . PO2, Venous POC (BKR) 44 See_Comment L [Auto mated (test code = 84214674) messa ge] The system which generated this result transmitted reference range : 50 - 75 mm Hg. The reference range was not used to interpret this result as normal/abnormal . Ionized Calcium POC 1.24 mmol/L 1.15-1.29 (test code = 49558573) HCO3, Pankaj POC (test 16 mmol/L 22-26 L code = 78908758) TCO2 POC (test code = 17 mmol/L 21-32 L 33505659) Base Deficit, Pankaj POC -9 (test code = 57365224) Sample Type (test code IVFLORENCE Physi erik Notified = 96214949) % Sat, Pankaj POC (test 77 % code = 79677284) Lab Interpretation Abnormal (test code = 84645-6) [facility] VBG POC docked [id number] 11:16:15 Test Item Value Reference Range Interpretation Comments pH, Pankaj POC (test code 7.32 7.33-7.43 L = 32568393) pCO2,Pankaj POC (test code 31.0 See_Comment L [Au tomated = 23509898) message] The sy stem which generated this result transmitted reference range : 38 - 50 mmHg. The reference range was not used to interpret this result as normal/abnormal . PO2, Venous POC (BKR) 44 See_Comment L [Auto mated (test code = 10618498) messa ge] The system which generated this result transmitted reference range : 50 - 75 mm Hg. The reference range was not used to interpret this result as normal/abnormal . Ionized Calcium POC 1.24 mmol/L 1.15-1.29 (test code = 46618331) HCO3, Pankaj POC (test 16 mmol/L 22-26 L code = 49628119) TCO2 POC (test code = 17 mmol/L 21-32 L 99439625) Base Deficit, Pankaj POC -9 (test code = 94015557) Sample Type (test code STEPAN Physi erik Notified = 19367009) % Sat, Pankaj POC (test 77 % code = 45180979) Lab Interpretation Abnormal (test code = 82389-6) [facility] VBG POC docked [id number] 11:16:15 Test Item Value Reference Range Interpretation Comments pH, Pankaj POC (test code 7.32 7.33-7.43 L = 83303894) pCO2,Pankaj POC (test code 31.0 See_Comment L [Au tomated = 69360923) message] The sy stem which generated this result transmitted reference range : 38 - 50 mmHg. The reference range was not used to interpret this result as normal/abnormal . PO2, Venous POC (BKR) 44 See_Comment L [Auto mated (test code = 22604284) messa ge] The system which generated this result transmitted reference range : 50 - 75 mm Hg. The reference range was not used to interpret this result as normal/abnormal . Ionized Calcium POC 1.24 mmol/L 1.15-1.29 (test code = 58278582) HCO3, Pankaj POC (test 16 mmol/L 22-26 L code = 48113691) TCO2 POC (test code = 17 mmol/L 21-32 L 41631897) Base Deficit, Pankaj POC -9 (test code = 31168284) Sample Type (test code STEPAN valencia Notified = 05587082) % Sat, Pankaj POC (test 77 % code = 34313642) Lab Interpretation Abnormal (test code = 09282-9) [facility] VBG POC docked [id number] 11:16:15 Test Item Value Reference Range Interpretation Comments pH, Pankaj POC (test code 7.32 7.33-7.43 L = 03008307) pCO2,Pankaj POC (test code 31.0 See_Comment L [Au tomated = 85486235) message] The sy stem which generated this result transmitted reference range : 38 - 50 mmHg. The reference range was not used to interpret this result as normal/abnormal . PO2, Venous POC (BKR) 44 See_Comment L [Auto mated (test code = 45897291) messa ge] The system which generated this result transmitted reference range : 50 - 75 mm Hg. The reference range was not used to interpret this result as normal/abnormal . Ionized Calcium POC 1.24 mmol/L 1.15-1.29 (test code = 36471347) HCO3, Pankaj POC (test 16 mmol/L 22-26 L code = 02295460) TCO2 POC (test code = 17 mmol/L 21-32 L 06800413) Base Deficit, Pankaj POC -9 (test code = 73881195) Sample Type (test code IVFLORENCE Physi erik Notified = 43820989) % Sat, Pankaj POC (test 77 % code = 53976769) Lab Interpretation Abnormal (test code = 37822-9) [place] [address] LEAD [id number] 20:59:5612 LEAD EKG FOR [facility] Test Date: 7163-57-76Btg Name: DORA JOSEPH Department: 5520Patient ID: [id number] Room: Gender: M Fagot Maker: [id number]: 1970 Requested By: TANJA Garza Number: [id number] Reading MD: Cihara Calles MeasurementsIntervals Ten Sleep Rate: 75 P: 84PR: 153 QRS: 67QRSD: 104 T: 77QT: 344 QTc: 373 Interpretive StatementsSINUS RHYTHMPOSSIBLE RIGHT VENTRICULAR CONDUCTION DELAY [RSR (QR) IN V1/V2]Electronically Signed On 01-09-2022 8:27:19 CDT by [facility] HospitalrobertbakariMatthew [facility] [address] LEAD [id number] 20:59:5612 LEAD EKG FOR [facility] Test Date: 5129-02-43Bxz Name: DORA JOSEPH Department: 5520Patient ID: [id number] Room: Gender: M Fagot Maker: [id number]: 1970 Requested By: TANJA Garza Number: [id number] Reading : Chiara Calles MeasurementsIntervals Ten Sleep Rate: 75 P: 84PR: 153 QRS: 67QRSD: 104 T: 77QT: 344 QTc: 373 Interpretive StatementsSINUS RHYTHMPOSSIBLE RIGHT VENT RICULAR CONDUCTION DELAY [RSR (QR) IN V1/V2]Electronically Signed On 01-09-2022 8:27:19 CDT by [facility] HospitalOpenBuildingsSamantha Ville [address] LEAD [id number] 20:59:5612 LEAD EKG FOR [facility] Test Date: 8863-86-49Agc Name: DORA JOSEPH Department: 5520Patient ID: [id number] Room: Gender: M Fagot Maker: [id number]: 1970 Requested By: TANJA Garza Number: [id number] Reading MD: Chiara Calles MeasurementsIntervals Ten Sleep Rate: 75 P: 84PR: 153 QRS: 67QRSD: 104 T: 77QT: 344 QTc: 373 Interpretive StatementsSINUS RHYTHMPOSSIBLE RIGHT VENTRICULAR CONDUCTION DELAY [RSR (QR) IN V1/V2]Electronically Signed On 01-09-2022 8:27:19 CDT by [facility] Hospital[facility] SegmintbakariKuaidi DacheSamantha [place] [address] LEAD [id number] 20:59:5612 LEAD EKG FOR [facility] Test Date: 0163-22-77Xhj Name: DORA HOMER Department: 5520Patient ID: [id number] Room: Gender: M Fagot Maker: [id number]: 1970 Requested By: TANJA Garza Number: [id number] Reading MD: Chiara Calles MeasurementsIntervals Ten Sleep Rate: 75 P: 84P R: 153 QRS: 67QRSD: 104 T: 77QT: 344 QTc: 373 Interpretive StatementsSINUS RHYTHMPOSSIBLE RIGHT VENTRICULAR CONDUCTION DELAY [RSR (QR) IN V1/V2]Electronically Signed On 01-09-2022 8:27:19 CDT by [facility] Hospitalrobert SegmintbakariKuaidi DacheSam[place] [address] LEAD [id number] 20:59:5612 LEAD EKG FOR [facility] Test Date: 9915-67-54Mfd Name: DORA HOMER Department: 5520Patient ID: [id number] Room: Gender: M Fagot Maker: [id number]: 1970 Requested By: TANJA Garza Number: [id number] Reading MD: Chiara Calles MeasurementsIntervals Ten Sleep Rate: 75 P: 84PR: 153 QRS: 67QRSD: 104 T: 77QT: 344 QTc: 373 Interpretive StatementsSINUS RHYTHMPOSSIBLE RIGHT VENTRICULAR CONDUCTION DELAY [RSR (QR) IN V1/V2]Electronically Signed On 01-09-2022 8:27:19 CDT by [employer]12 LEAD [id number] 20:59:5612 LEAD EKG FOR [facility] Test Date: 7624-06-38Ixc Name: DORA JOSEPH Department: 5520Patient ID: [id number] Room: Gender: M Fagot Maker: [id number]: 1970 Requested By: TANJA Garza Number: [id number] Reading MD: Chiara Calles MeasurementsIntervals Ten Sleep Rate: 75 P: 84PR: 153 QRS: 67QRSD: 104 T: 77QT: 344 QTc: 373 Interpretive StatementsSINUS RHYTHMPOSSIBLE RIGHT VENT RICULAR CONDUCTION DELAY [RSR (QR) IN V1/V2]Electronically Signed On 01-09-2022 8:27:19 CDT by WalrobertNegevtech12 LEAD [id number] 20:59:5612 LEAD EKG FOR [facility] Test Date: 8329-34-35Dci Name: DORA PAEZRY Department: 5520Patient ID: [id number] Room: Gender: M Fagot Maker: [id number]: 1970 Requested By: TANJA Garza Number: [id number] Reading MD: Chiara Calles MeasurementsIntervals Ten Sleep Rate: 75 P: 84PR: 153 QRS: 67QRSD: 104 T: 77QT: 344 QTc: 373 Interpretive StatementsSINUS RHYTHMPOSSIBLE RIGHT VENTRICULAR CONDUCTION DELAY [RSR (QR) IN V1/V2]Electronically Signed On 01-09-2022 8:27:19 CDT by [facility] Zhcgvw95 LEAD [id number] 20:59:5612 LEAD EKG FOR [facility] Test Date: 4502-00-66Sli Name: DORA JOSEPH Department: 5520Patient ID: [id number] Room: Gender: M Fagot Maker: [id number]: 1970 Requested By: TANJA Garza Number: [id number] Reading MD: Chiara Calles MeasurementsIntervals Ten Sleep Rate: 75 P: 84P R: 153 QRS: 67QRSD: 104 T: 77QT: 344 QTc: 373 Interpretive StatementsSINUS RHYTHMPOSSIBLE RIGHT VENTRICULAR CONDUCTION DELAY [RSR (QR) IN V1/V2]Electronically Signed On 01-09-2022 8:27:19 CDT by [facility] HospitalFusion-io12 LEAD [id number] 20:59:5612 LEAD EKG FOR [facility] Test Date: 1760-54-99Ivr Name: DORA PAEZRY Department: 5520Patient ID: [id number] Room: Gender: M Fagot Maker: [id number]: 1970 Requested By: TANJA Garza Number: [id number] Reading MD: Chiara Calles MeasurementsIntervals Ten Sleep Rate: 75 P: 84PR: 153 QRS: 67QRSD: 104 T: 77QT: 344 QTc: 373 Interpretive StatementsSINUS RHYTHMPOSSIBLE RIGHT VENTRICULAR CONDUCTION DELAY [RSR (QR) IN V1/V2]Electronically Signed On 01-09-2022 8:27:19 CDT by [facility] HospitalF[facility]-io12 LEAD [id number] 20:59:5612 LEAD EKG FOR [facility] Test Date: 2209-62-52Ifm Name: DORA PAEZRY Department: 5520Patient ID: [id number] Room: Gender: M Fagot Maker: [id number]: 1970 Requested By: TANJA Garza Number: [id number] Reading MD: Chiara Calles MeasurementsIntervals Ten Sleep Rate: 75 P: 84PR: 153 QRS: 67QRSD: 104 T: 77QT: 344 QTc: 373 Interpretive StatementsSINUS RHYTHMPOSSIBLE RIGHT VENTR ICULAR CONDUCTION DELAY [RSR (QR) IN V1/V2]Electronically Signed On 01-09-2022 8:27:19 CDT by [facility] Negevtech12 LEAD [id number] 20:59:5612 LEAD EKG FOR [facility] Test Date: 3093-58-42Aww Name: DORA HOMER Department: 5520Patient ID: [id number] Room: Gender: M Fagot Maker: [id number]: 1970 Requested By: TANJA Garza Number: [id number] Reading MD: Chiara Calles MeasurementsIntervals Ten Sleep Rate: 75 P: 84PR: 153 QRS: 67QRSD: 104 T: 77QT: 344 QTc: 373 Interpretive StatementsSINUS RHYTHMPOSSIBLE RIGHT VENTRICULAR CONDUCTION DELAY [RSR (QR) IN V1/V2]Electronically Signed On 01-09-2022 8:27:19 CDT by [employer] LEAD [id number] 20:59:5612 LEAD EKG FOR [facility] Test Date: 5771-34-86Lvl Name: DORA JOSEPH Department: 5520Patient ID: [id number] Room: Gender: M Fagot Maker: [id number]: 1970 Requested By: TANJA Garza Number: [id number] Reading MD: Chiara Calles MeasurementsIntervals Ten Sleep Rate: 75 P: 84PR : 153 QRS: 67QRSD: 104 T: 77QT: 344 QTc: 373 Interpretive StatementsSINUS RHYTHMPOSSIBLE RIGHT VENTRICULAR CONDUCTION DELAY [RSR (QR) IN V1/V2]Electronically Signed On 01-09-2022 8:27:19 CDT by [employer]12 LEAD [id number] 20:59:5612 LEAD EKG FOR [facility] Test Date: 7484-25-10Qip Name: DORA JOSEPH Department: 5520Patient ID: [id number] Room: Gender: M Fagot Maker: [id number]: 1970 Requested By: TANJA Garza Number: [id number] Reading MD: Chiara Calles MeasurementsIntervals Ten Sleep Rate: 75 P: 84PR: 153 QRS: 67QRSD: 104 T: 77QT: 344 QTc: 373 Interpretive StatementsSINUS RHYTHMPOSSIBLE RIGHT VENTRICULAR CONDUCTION DELAY [RSR (QR) IN V1/V2]Electronically Signed On 01-09-2022 8:27:19 CDT by [employer]12 LEAD [id number] 20:59:5612 LEAD EKG FOR [facility] Test Date: 8707-32-97Ugo Name: DORA PAEZRY Department: 5520Patient ID: [id number] Room: Gender: M Fagot Maker: [id number]: 1970 Requested By: TANJA Garza Number: [id number] Reading MD: Chiara Calles MeasurementsIntervals Ten Sleep Rate: 75 P: 84PR: 153 QRS: 67QRSD: 104 T: 77QT: 344 QTc: 373 Interpretive StatementsSINUS RHYTHMPOSSIBLE RIGHT VENTR ICULAR CONDUCTION DELAY [RSR (QR) IN V1/V2]Electronically Signed On 01-09-2022 8:27:19 CDT by Chiara DavisKuaidi DacheCompablur Group12 LEAD [id number] 20:59:5612 LEAD EKG FOR [facility] Test Date: 4564-80-42Oja Name: DORA JOSEPH Department: 5520Patient ID: [id number] Room: Gender: M Fagot Maker: [id number]: 1970 Requested By: TANJA Garza Number: [id number] Reading MD: Chiara Calles MeasurementsIntervals Ten Sleep Rate: 75 P: 84PR: 153 QRS: 67QRSD: 104 T: 77QT: 344 QTc: 373 Interpretive StatementsSINUS RHYTHMPOSSIBLE RIGHT VENTRICULAR CONDUCTION DELAY [RSR (QR) IN V1/V2]Electronically Signed On 01-09-2022 8:27:19 CDT by [employer] [place] [address] LEAD [id number] 20:59:5612 LEAD EKG FOR [facility] Test Date: 4178-61-30Eyu Name: DORA JOSEPH Department: 5520Patient ID: [id number] Room: Gender: M Fagot Maker: [id number]: 1970 Requested By: TANJA Garza Number: [id number] Reading MD: Chiara Calles MeasurementsIntervals Ten Sleep Rate: 75 P: 84P R: 153 QRS: 67QRSD: 104 T: 77QT: 344 QTc: 373 Interpretive StatementsSINUS RHYTHMPOSSIBLE RIGHT VENTRICULAR CONDUCTION DELAY [RSR (QR) IN V1/V2]Electronically Signed On 01-09-2022 8:27:19 CDT by [facility] Qaskrn28 LEAD [id number] 20:59:5612 LEAD EKG FOR [facility] Test Date: 3609-18-22Usl Name: DORA JOSEPH Department: 5520Patient ID: [id number] Room: Gender: M Fagot Maker: [id number]: 1970 Requested By: TANJA Garza Number: [id number] Reading MD: Chiara Calles MeasurementsIntervals Ten Sleep Rate: 75 P: 84PR: 153 QRS: 67QRSD: 104 T: 77QT: 344 QTc: 373 Interpretive StatementsSINUS RHYTHMPOSSIBLE RIGHT VENTRICULAR CONDUCTION DELAY [RSR (QR) IN V1/V2]Electronically Signed On 01-09-2022 8:27:19 CDT by [facility] [place] [address] LEAD [id number] 20:59:5612 LEAD EKG FOR [facility] Test Date: 2333-23-79Uer Name: DORA JOSEPH Department: 5520Patient ID: [id number] Room: Gender: M Fagot Maker: [id number]: 1970 Requested By: TANJA Garza Number: [id number] Reading MD: Chiara Calles MeasurementsIntervals Ten Sleep Rate: 75 P: 84PR: 153 QRS: 67QRSD: 104 T: 77QT: 344 QTc: 373 Interpretive StatementsSINUS RHYTHMPOSSIBLE RIGHT PANKAJ TRICULAR CONDUCTION DELAY [RSR (QR) IN V1/V2]Electronically Signed On 01-09-2022 8:27:19 CDT by [facility] UniverseSam[place] [address] LEAD [id number] 20:59:5612 LEAD EKG FOR [facility] Test Date: 5140-98-13Hev Name: DORA JOSEPH Department: 5520Patient ID: [id number] Room: Gender: M Fagot Maker: [id number]: 1970 Requested By: TANJA Garza Number: [id number] Reading MD: Chiara Calles MeasurementsIntervals Ten Sleep Rate: 75 P: 84PR: 153 QRS: 67QRSD: 104 T: 77QT: 344 QTc: 373 Interpretive StatementsSINUS RHYTHMPOSSIBLE RIGHT VENTRICULAR CONDUCTION DELAY [RSR (QR) IN V1/V2]Electronically Signed On 01-09-2022 8:27:19 CDT by ChiarabakariKuaidi DacheCompaMark [place] [address] LEAD [id number] 20:59:5612 LEAD EKG FOR [facility] Test Date: 0871-10-16Yup Name: DORA JOSEPH Department: 5520Patient ID: [id number] Room: Gender: M Fagot Maker: [id number]: 1970 Requested By: TANJA Garza Number: [id number] Reading MD: Chiara Calles MeasurementsIntervals Ten Sleep Rate: 75 P: 84PR: 153 QRS: 67QRSD: 104 T: 77QT: 344 QTc: 373 Interpretive StatementsSINUS RHYTHMPOSSIBLE RIGHT VENTRICULAR CONDUCTION DELAY [RSR (QR) IN V1/V2]Electronically Signed On 01-09-2022 8:27:19 CDT by [facility] SegmintbakariKuaidi DacheSamantha [place] [address] LEAD [id number] 20:59:5612 LEAD EKG FOR [facility] Test Date: 6205-51-64Pjb Name: DORA PAEZRY Department: 5520Patient ID: [id number] Room: Gender: M Fagot Maker: [id number]: 1970 Requested By: TANJA Garza Number: [id number] Reading MD: Chiara Calles MeasurementsIntervals Ten Sleep Rate: 75 P: 84PR: 153 QRS: 67QRSD: 104 T: 77QT: 344 QTc: 373 Interpretive StatementsSINUS RHYTHMPOSSIBLE RIGHT VENTRICULAR CONDUCTION DELAY [RSR (QR) IN V1/V2]Electronically Signed On 01-09-2022 8:27:19 CDT by [facility] W/AUTO [id number] 23:52:00 Test Item Value Reference Range Interpretation [...] = MX#) 0.8 k/mm3 0.1-0.8 N LIVER [id number] 20:04:00 Test Item Value Reference Range Interpretation Comments TOTAL PROTEIN (test code 6.7 GM/DL 5.0-8.0 N Per formed by = PROT) 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 [facility] ALBUMIN (test code = [...] 67 UNITS/L 25-125 N LYNDSEY) BASIC METABOLIC [id number] 19:54:00 Test Item Value Reference Range Interpretation [...] POCGLU) 81 MG/DL - CT ABD PELVIS W/[id number] 00:00:00 [facility]: MARIA ISABEL JOSEPH : 1970 Sex: M Name: MARIA ISABEL JOSEPH FSED : 1970 Age/S: 51 / M [address] [facility] Unit #: [id number] Loc: [place] [address] Phys: Raffaele Levi MD Acct: [id number] Dis Date: Status: PRE ER PHONE #: Exam Date: 09/23/20211999 FAX #: Reason: RUQ PAIN, VOMITING EXAMS: CPT CODE: [id number] CT ABD PELVIS W/CONT 46280 PROCEDURE INFORMATION: Exam: CT Abdomen And Pelvis [...] : 1970 Age/S: 51 / M [address] [facility] Unit #: [id number] Loc: [place] [address] Phys: Raffaele Levi MD Acct: [id number] Dis Date: Status: PRE ER PHONE #: Exam Date: 09/23/20211999 FAX #: Reason: RUQ PAIN, VOMITING EXAMS: CPT CODE: [id number] CT ABD PELVIS W/CONT 66304 <Continued> abdominal small bowel loops may relate [...] 09/23/2021 (2049) PAGE 2 Signed ReportCOMPREHENSIVE METABOLIC [id number] 11:51:00 Test Item Value Reference Range Interpretation [...] Units/L 50.0-136.0 N code = ALKP) PROTHROMBIN [id number] 11:41:00 Test Item Value Reference Range Interpretation Comments PROTHROMBIN TIME 10.9 SECONDS 9.9-12.8 N PATIENT (test code = PTP) INTERNATIONAL NORMAL 0.9 0.89-1.14 N THE INR IS TO BE USED RATIO (test code = ONLY FOR MONITORING INR) ORAL ANTICOAGULANTTH ERAPY. THE FOLLOWING A RE SUGGESTED RANGE S 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..] = LY#) 2.4 K/uL 1.0-3.8 N LIVER [id number] 16:14:00 Test Item Value Reference Range Interpretation Comments TOTAL PROTEIN (test code 7.5 GM/DL 5.0-8.0 N Per formed by = PROT) 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 [facility] ALBUMIN (test code = [...] 65 UNITS/L 25-125 N LYNDSEY) BASIC METABOLIC [id number] 16:07:00 Test Item Value Reference Range Interpretation [...] POCGLU) 96 MG/DL - XR CHEST 1 [id number] 00:00:00 [facility] 1970 Sex: MFAX: Steve Urias MD [phone] [place]: [address] St: PRE Name: DORA JOSEPH MARIA ISABEL Castro FSED : 1970 Age/S: 51/M [address] [facility] Unit #: [id number] Loc: [place] [address] Phys: Steve rUias MD Acct: [id number] Dis Date: Status: PRE ER PHONE #: Exam Date: 06/27/2021 1549 FAX #: Reason: Abdominal PainEXAMS: CPT CODE: [id number] XR CHEST 1 V 21201 PROCEDURE INFORMATION: Exam: XR Chest Exam date [...] By: [email or web address] Orig Print D/T: S: 06/27/2021 (3807) PAGE 1 Signed Report- CT ABD PELVIS W/[id number] 00:00:00 [facility] 1970 Sex: MName: DORA JOSEPH FSED : 1970 Age/S: 51 / M [address] [facility] Unit #: [id number] Loc: [place] [address] Phys: Steve Urias MD Acct: [id number] Dis Date: Status: REG ER PHONE #: Exam Date: 06/27/2021 6896 FAX #: Reason: pain in region of colostomy EXAMS: CPT CODE: [id number] CT ABD PELVIS W/CONT 13761 PROCEDURE INFORMATION: Exam: CT Abdomen And Pelvis [...] : 1970 Age/S: 51 / M [address] [facility] Unit #: [id number] Loc: [place] [address] Phys: Steve Urias MD Acct: [id number] Dis Date: Status: REG ER PHONE #: Exam Date: 06/27/2021 2869 FAX #: Reason: pain in region of colostomy EXAMS: CPT CODE: [id number] CT ABD PELVIS W/CONT 07865 <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 There is no evidence of associated intestinal obstruction. 2. No additional acute CT abnormalities of the abdomen or pelvis are identified. SL:131 at 1650 Reported and signed by: Marco Raman M.D. CC: Steve Urias MD Technologist:Yecenia Carbajal, RT(R)(CT) CTDI: DLP: Trnscb Date/Time: 06/27/2021 (1649) t.FLEXR.DMM Orig Print D/T: S: 06/27/2021 (1649) PAGE 2 Signed ReportCBC W/AUTO [id number] 09:20:00 Test Item Value Reference Range Interpretation [...] (test code NO = MDIFF) CBC W/AUTO [id number] 08:59:00 Test Item Value Reference Range Interpretation [...] REQUIRED (test code = MDIFF) BASIC METABOLIC [id number] 08:21:00 Test Item Value Reference Range Interpretation [...] 8.4 mg/dL 8.0-10.5 N CA) BASIC METABOLIC [id number] 08:34:00 Test Item Value Reference Range Interpretation [...] 8.4 mg/dL 8.0-10.5 N CA) CBC W/AUTO [id number] 07:41:00 Test Item Value Reference Range Interpretation [...] = MDIFF) UA RFLX MICR CULT IF [id number] 10:10:00 Test Item Value Reference Range Interpretation [...] Suprapubic Pain Temperature > 100.4 FSpecimen Description: [facility] STREAMBASIC METABOLIC [id number] 04:13:00 Test Item Value Reference Range Interpretation [...] mg/dL 8.0-10.5 N CA) Coronavirus 2019 nCoV [id number] 22:03:00 Test Item Value Reference Range Interpretation Comments Coronavirus 2019 Negative Negative Performed b y certified nCoV Bedside (pole tester at [facility] code = CtrNegative res ults should [id number]) be treated as presumptive and, ifinconsis tent with clinical signs and symptoms or necessaryfor patient management, fifi uld be tested with an alternativemole cular assay. Negative result s do not preclude AGLB-VhD-8yyfes tion and should not be u sed as the sole basis forp atient management deci sions. Negative result s should beconsidered in the context of a patient's recent exposures,histo ry, presence of clinical sig ns and symptoms consis tentwith COVID-19. CBC W/AUTO [id number] 21:11:00 Test Item Value Reference Range Interpretation [...] MX#) 0.6 k/mm3 0.1-0.8 N BASIC METABOLIC [id number] 19:00:00 Test Item Value Reference Range Interpretation [...] POCGLU) 92 MG/DL - CT ABD PELVIS W/[id number] 00:00:00 [facility] : 1970 Sex: MName: DORA JOSEPH FSED : 1970 Age/S: 51 / M [address] [facility] Unit #: [id number] Loc: [place] [address] Phys: Marcello Benoit MD Acct: [id number] Dis Date: Status: REG ER PHONE #: Exam Date: 04/28/2021 1914 FAX #: Reason: epigastric and LLQ pain, R-sided colostomy EXAMS:CPT CODE: [id number] CT ABD PELVIS W/CONT 65019 PROCEDURE INFORMATION: Exam: CT Abdomen And Pelvis [...] 1 Signed Report (CONTINUED) Name: DORA JOSEPH [facility] : 1970 Age/S:51 / M [address] [facility] Unit #: [id number] Loc: [place] [address] Phys: Marcello Benoit MD Acct: [id number] Dis Date: Status: REG ER PHONE #: Exam Date: 04/28/2021 1914 FAX #: Reason: epigastric and LLQ pain, R-sided colostomy EXAMS: CPT CODE: [id number] CT ABD PELVIS W/CONT 17675 <Continued> Reproductive: Unremarkable as visualized. Bones/joints: Unremarkable. No acute fracture. Soft tissues: Unremarkable. IMPRESSION: 1. 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 2. Mild long segment bowel wall thickening/mucosal prominence compatible with an enteritis. No evidence for obstruction. at 1955 Reported and signed by: Hector Nichols M.D. CC: Marcello Benoit MD Technologist:Stephanie Albrecht, RT(R)(CT) CTDI: DLP: Trnscb Date/Time: 04/28/2021 (1955) tJUDSONKWL Orig Print D/T: S:04/28/2021 (1955) PAGE 2 Signed Report- XR ABDOMEN 1 [id number] 12:53:00 Name: DORA JOSEPH [facility] : 1970 Age/S: 50 / M [address] [facility] [place] Unit #: [id number] Loc: [place] [address] 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 Acct: [id number] Dis Date: Status: ADM IN PHONE #: [phone] Exam Date: 02/25/2020 1036 FAX #: Reason: abdominal distention EXAMS: CPT: [id number] XR ABDOMEN 1 V 77629 Fluoro Time: DAP (Gy m2): Air Kerma [...] the left lower quadrant (not previously seen) [id number] Reported and signed by: Sol Paige MD CC: Andre Solano; Mark Perea MD PAGE 1 Signed Report Name: DORA JOSEPH [facility] : 1970 Age/S: 50 / M [address] [place] Unit #: [id number] Loc: [place] [address] 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 Acct: [id number] Dis Date: Status: ADM IN PHONE #: [phone] Exam Date: 02/25/2020 1036 FAX #: Reason: abdominal distention EXAMS: CPT: [id number] XR ABDOMEN 1 V 24002 Fluoro Time: DAP (Gy m2): Air Kerma (mGy): <Continued> Technologist: Nichole Dill RT(R) Trnscb Date/Time: 02/25/2020 (7507) tJUDSONEFM1 Orig Print D/T: S: 02/25/2020 (7166) PAGE 2 Signed Report COMPREHENSIVE METABOLIC [id number] 08:20:00 Test Item Value Reference Range Interpretation [...] 50-136 L TOTAL (test code = ALKP) [id number] 08:20:00 Test Item Value Reference Range Interpretation Comments MAGNESIUM (test code = MAG) 2.2 MG/DL 1.8-2.4 N THYROID STIMULATING [id number] 08:20:00 Test Item Value Reference Range Interpretation Comments THYROID STIMULATING HORMONE 5.430 mcIU/ML 0.340-4.820 H (test code = TSH) CBC W/AUTO [id number] 07:55:00 Test Item Value Reference Range Interpretation [...] N NRBC#) UA RFLX MICR CULT IF [id number] 12:29:00 Test Item Value Reference Range Interpretation [...] culture: Suprapubic PainUA RFLX MICR CULT IF [id number] 12:29:00 Test Item Value Reference Range Interpretation [...] for culture: Suprapubic PainCOVID 19 Asymptomatic IH [id number] 22:09:00 Test Item Value Reference Range Interpretation [...] tent with COVID-19. - CT ABD PELVIS W/[id number] 21:10:00 Name: DORA JOSEPH [facility] : 1970 Age/S: 50 / M [address] [place] Unit #: [id number] Loc: [place] [address] Phys: Evin Castellanos MD Acct: [id number] Dis Date: Status: REG ERPHONE #: [phone] Exam Date: 02/23/20202047 FAX #: Reason: diffuse abdomen pain and distention EXAMS: CPT: [id number] CT ABD PELVIS W/CONT 20714 EXAM: - CT ABD PELVIS W/CONT LOCATION: [...] 1 Signed Report (CONTINUED) Name: DORA JOSEPH [place] : 1970 Age/S: 50 / M [address] [place] Unit #: [id number] Loc: [place] [address] Phys: Evin Castellanos MD Acct: [id number] Dis Date: Status: REG ER PHONE #: [phone] Exam Date: 02/23/20202047 FAX #: Reason: diffuse abdomen pain and distention EXAMS: CPT: [id number] CT ABD PELVIS W/CONT 24666 <Continued> CT. No bowel wall thickening or [...] by: Marybel José M.D. CC: Susana Meza 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; Carl Luevano MD Technologist:Rudy Zuniga, RT(R)(CT)(MRI) CTDI: DLP: Trnscb Date/Time: 02/23/2020 (2109) t.SDR.TH15 Orig Print D/T: S: 02/23/2020 (2112) PAGE 2 Signed Report- XR CHEST 1 [id number] 21:03:00 Name: DORA JOSEPH [facility] : 1970 Age/S: 50 / M [address] Unit #: [id number] Loc: [place] [address] Phys: Evin Castellanos MD Acct: [id number] Dis Date: Status: REG ER PHONE #: [phone] Exam Date: 02/23/20202055 FAX #: Reason: Code Sepsis EXAMS: CPT: [id number] XR CHEST 1 V 71199 Fluoro Time: DAP (Gy m2): Air Kerma [...] by: Monica Quijano MD CC: Susana Meza 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; Carl Luevano MD PAGE 1 Signed Report Name: DORA JOSEPH [facility] : 1970 Age/S: 50 / M [address] Unit #: [id number] Loc: [place] [address] Phys: Evin Castellanos MD Acct: [id number] Dis Date: Status: REG ER PHONE #: [phone] Exam Date: 02/23/20202055 FAX #: Reason: Code Sepsis EXAMS: CPT: [id number] XR CHEST 1 V 51604 Fluoro Time: DAP (Gy m2): Air Kerma (mGy): <Continued> Technologist: Rudy Zuniga RT(R)(CT)(MRI) Trnscb Date/Time: 02/23/2020 (2102) Alanis Orig Print D/T: S:02/23/2020 (2106) PAGE 2 Signed ReportBASI METABOLIC PANEL 2020-02-23 20:02:00 Test Item Value [...] 8.5-10.1 N Completed by Nursing: NOHEPATIC FUNCTION [id number] 20:02:00 Test Item Value Reference Range Interpretation [...] N code = ALKP) Completed by Nursing: [id number] 20:02:00 Test Item Value Reference Range Interpretation Comments LIPASE (test code = LIP) 97 Unit/L 114-286 L Completed by Nursing: HFYMJXTHJF-[id number] 20:02:00 Test Item Value Reference Range Interpretation [...] brittani yby method. Completed by Nursing: NOLACTIC IYEW6908-06-24 19:59:00 Test Item Value Reference Range Interpretation Comments LACTIC ACID (test code = LACT) 1.2 mmol/L 0.4-2.0 N CBC W/AUTO [id number] 19:46:00 Test Item Value Reference Range Interpretation [...] CRITERIA = MDIFF) - XR ABDOMEN 2 [id number] 06:22:00 Name: DORA JOSEPH [facility] : 1970 Age/S: 50 / M [address] [address] [place] Unit #: [id number] Loc: [place] [address] Phys: León Robertson MD Acct: [id number] Dis Date: Status: ADM IN PHONE #: [phone] Exam Date: 02/19/2020 0440 FAX #: Reason: megacolon EXAMS: CPT: [id number] XRABDOMEN 2 V 15874 Fluoro Time: DAP (Gy m2): Air Kerma [...] PAGE 1 Signed Report Name: DORA JOSEPH [facility] : 1970 Age/S: 50 / M [address] [place] Unit #: [id number] Loc: [place] [address] Phys: León Robertson MD Acct: [id number] Dis Date: Status: ADM IN PHONE #: [phone] Exam Date: 02/19/2020 0440 FAX #: Reason: megacolon EXAMS:CPT: [id number] XR ABDOMEN 2 V 11205 Fluoro Time: DAP (Gy m2): Air Kerma (mGy): <Continued> Technologist: Carrie Barnett, RT(R)(CT) Trnscb Date/Time: 02/19/2020 (06) t.FLEXRLisethAL7 Orig Print D/T: S: 02/19/2020 (06) PAGE 2 Signed ReportBASIC METABOLIC [id number] 05:52:00 Test Item Value Reference Range Interpretation [...] CA) 8.5 MG/DL 8.5-10.1 N CBC W/AUTO [id number] 05:40:00 Test Item Value Reference Range Interpretation [...] NO DIFF/SCN CRITERIA = MDIFF) BASIC METABOLIC [id number] 06:52:00 Test Item Value Reference Range Interpretation [...] CA) 8.3 MG/DL 8.5-10.1 L CBC W/AUTO [id number] 06:39:00 Test Item Value Reference Range Interpretation [...] DIFF/SCN CRITERIA = MDIFF) Coronavirus 2018 nCoV Vrlpwxq2329-69-55 05:35:00 Test Item Value Reference Range Interpretation [...] tent with COVID-19. - XR ABDOMEN 1 [id number] 07:32:00 Name: DORA JOSEPH [facility] : 1970 Age/S: 49 / M [address] Unit #: [id number] Loc: [place] [address] Phys: Jay Mayo MD Acct: [id number] Dis Date: Status: ADM IN PHONE #: [phone] Exam Date: 01/10/2020 0658 FAX #: Reason: follow up colonic ileus EXAMS: CPT: [id number] XR ABDOMEN 1 V 94896 Fluoro Time: DAP (Gy m2): Air Kerma [...] PAGE 1 Signed Report Name: DORA JOSEPH [place] : 1970 Age/S: 49 / M [address] [place] Unit #: [id number] Loc: [place] [address] Phys: Jay Mayo MD Acct: [id number] Dis Date: Status: ADM IN PHONE #: [phone] Exam Date: 01/10/2020 0658 FAX #: Reason: follow up colonic ileus EXAMS: CPT: [id number] XR ABDOMEN 1 V 62491 Fluoro Time: DAP (Gy m2): Air Kerma (mGy): <Continued> Technologist: Bakari De Leon RT(R)(CT) Trnscb Date/Time: 01/10/2020 (32) Candido.CB5 Orig Print D/T: S: 01/10/2020 (0736) PAGE 2 Signed ReportCOMPREHENSIVE METABOLIC [id number] 05:56:00 Test Item Value Reference Range Interpretation [...] TOTAL (test code = ALKP) CBC W/AUTO [id number] 05:42:00 Test Item Value Reference Range Interpretation [...] = NO DIFF/SCN CRITERIA MDIFF) BASIC METABOLIC [id number] 06:59:00 Test Item Value Reference Range Interpretation [...] code = CA) 8.5 MG/DL 8.5-10.1 N [id number] 06:59:00 Test Item Value Reference Range Interpretation Comments MAGNESIUM (test code = MAG) 2.2 MG/DL 1.8-2.4 PROTHROMBIN [id number] 06:39:00 Test Item Value Reference Range Interpretation Comments PT PATIENT (test code = PTP) 13.1 SECONDS 9.3-12.9 H INTERNATIONAL NORMAL RATIO 1.16 INR Unit 0.8-1.2 N (test code = INR) CBC W/AUTO [id number] 06:22:00 Test Item Value Reference Range Interpretation [...] DIFF/SCN CRITERIA MDIFF) - XR ABDOMEN 1 [id number] 05:39:00 Name: DORA JOSEPH [facility] : 1970 Age/S: 49 / M [address] [place] Unit #: [id number] Loc: [place] [address] 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P Acct: [id number] Dis Date: Status: ADM IN PHONE #: [phone] Exam Date: 01/09/2020522 FAX #: Reason: colonic ileus/obstruction EXAMS: CPT: [id number] XR ABDOMEN 1 V 36640 Fluoro Time: DAP (Gy m2): Air Kerma [...] by: Teo Do M.D. CC: Andre Solano; aMrk Perea MD PAGE 1 Signed Report Name: DORA JOSEPH [facility] : 1970 Age/S: 49 / M [address] [facility] Unit #: [id number] Loc: [place] [address] 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P Acct: [id number] Dis Date: Status: ADM IN PHONE #: [phone] Exam Date: 01/09/2020522 FAX #: Reason: colonic ileus/obstruction EXAMS: CPT: [id number] XR ABDOMEN 1 V 97847 Fluoro Time: DAP (Gy m2): Air Kerma (mGy): <Continued> Technologist: Carrie Barnett, RT(R)(CT) Trnscb Date/Time: 01/09/2020 (0539) tKARTIK Orig Print D/T: S: 01/09/2020 (0542) PAGE2 Signed ReportCoronavirus 2018 nCoV [id number] 22:38:00 Test Item Value Reference Range Interpretation Comments Coronavirus 2019 nCoV Bedside (test Negative Negative code = [id number]) Emergent procedure? YESCoronavirus 2019 nCoV Vznpgij2929-52-38 22:38:00 Test Item Value Reference Range Interpretation Comments Coronavirus 2019 nCoV Bedside (test Negative Negative code = [id number]) Emergent procedure? YESBASIC METABOLIC [id number] 18:42:00 Test Item Value Reference Range Interpretation [...] CA) 8.5 MG/DL 8.5-10.1 N CBC W/AUTO [id number] 10:50:00 Test Item Value Reference Range Interpretation [...] = NO DIFF/SCN CRITERIA MDIFF) COMPREHENSIVE METABOLIC [id number] 10:46:00 Test Item Value Reference Range Interpretation [...] 50-136 N TOTAL (test code = ALKP) [id number] 10:46:00 Test Item Value Reference Range Interpretation Comments MAGNESIUM (test code = MAG) 2.6 MG/DL 1.8-2.4 H COMPREHENSIVE METABOLIC [id number] 10:34:00 Test Item Value Reference Range Interpretation [...] TOTAL (test Unit/L 50-136 code = ALKP) [id number] 10:34:00 Test Item Value Reference Range Interpretation Comments MAGNESIUM (test code = MAG) MG/DL 1.8-2.4 - XR ABDOMEN 1 [id number] 08:28:00 Name: DORA JOSEPH [place] : 1970 Age/S: 49 / M [address] Unit #: [id number] Loc: [place] [address] Phys: Yas Edwards MD Acct: [id number] Dis Date: Status: ADM IN PHONE#: [phone] Exam Date: 01/08/2020509 FAX #: Reason: ileus EXAMS: CPT: [id number] XR ABDOMEN 1 S04602 Fluoro Time: DAP (Gy m2): Air Kerma [...] PAGE 1 Signed Report Name: DORA JOSEPH [place] : 1970 Age/S: 49 / M [address] [place] [address] Unit #: [id number] Loc: [place] [address] Phys: Yas Edwards MD Acct: [id number] Dis Date: Status: ADM IN PHONE #: [phone] Exam Date: 01/08/202010 FAX #: Reason: ileus EXAMS: CPT: [id number] XR ABDOMEN 1 V 70600 Fluoro Time: DAP (Gy m2): Air Kerma (mGy): <Continued> Technologist: Carrie Barnett, RT(R)(CT); ... Trnscb Date/Time: 01/08/2020 (827) tJAQUELINE Orig Print D/T: S: 01/08/2020 (08) PAGE 2 Signed ReportCOMPREHENSIVE METABOLIC [id number] 07:08:00 Test Item Value Reference Range Interpretation [...] 50-136 L TOTAL (test code = ALKP) [id number] 07:08:00 Test Item Value Reference Range Interpretation Comments MAGNESIUM (test code = MAG) 1.3 MG/DL 1.8-2.4 L COMPREHENSIVE METABOLIC [id number] 05:16:00 Test Item Value Reference Range Interpretation [...] 50-136 L TOTAL (test code = ALKP) [id number] 05:16:00 Test Item Value Reference Range Interpretation Comments MAGNESIUM (test code = MAG) 1.3 MG/DL 1.8-2.4 L CBC W/AUTO [id number] 05:02:00 Test Item Value Reference Range Interpretation [...] (test code = NO DIFF/SCN CRITERIA MDIFF) [id number] 16:51:00 Test Item Value Reference Range Interpretation Comments MAGNESIUM (test code = MAG) 2.3 MG/DL 1.8-2.4 N FE W/TOTAL IRON BINDING CAP.2020-01-07 16:51:00 Test Item Value Reference Range Interpretation Comments SERUM IRON (test code = IRON) 38 mcG/DL 65-175 L TOTAL IRON BINDING CAPACITY (test 322 mcG/DL 250-450 N code = TIBC) IRON SATURATION (test code = 12 % calc 12-57 N FESAT) [id number] 16:51:00 Test Item Value Reference Range Interpretation Comments FERRITIN (test code = DAVID) 17.6 NG/ML 5.0-323.0 N CALCIUM [id number] 16:50:00 Test Item Value Reference Range Interpretation Comments CALCIUM IONIZED (test code = NAVEED) 1.12 mmol/L 1.12-1.32 N - XR ABDOMEN 1 [id number] 10:29:00 Name: DORA JOSEPH [facility] : 1970 Age/S: 49 / M [address] Unit #: [id number] Loc: [place] [address] Phys: Verona Frost PA-C Acct: [id number] Dis Date: Status: ADM IN PHONE #: [phone] Exam Date: 01/07/2020 0712 FAX #: Reason: reassess SBO EXAMS: CPT: [id number] XR ABDOMEN 1 V 42039 Fluoro Time: DAP (Gy m2): Air Kerma [...] PAGE 1 Signed Report Name: DORA JOSEPH [facility] : 1970 Age/S: 49 / M [address] Unit #: [id number] Loc: [place] [address] Phys: Verona Frost PA-C Acct: [id number] Dis Date: Status: ADM IN PHONE #: [phone] Exam Date: 01/07/2020 0712 FAX #: Reason: reassess SBO EXAMS: CPT: [id number] XR ABDOMEN 1 V 61659 Fluoro Time: DAP(Gy m2): Air Kerma (mGy): <Continued> Technologist: Bakari De Leon RT(R)(CT) Trnscb Date/Time: 01/07/2020 (1027) tJUDSONAGAnil Orig Print D/T: S: 01/07/2020 (6667) PAGE 2 Signed ReportBASIC METABOLIC PANEL 2020-01-07 [...] CA) 5.4 MG/DL 8.5-10.1 LL CBC W/AUTO [id number] 06:49:00 Test Item Value Reference Range Interpretation [...] = NO DIFF/SCN CRITERIA MDIFF) COMPREHENSIVE METABOLIC [id number] 06:10:00 Test Item Value Reference Range Interpretation [...] TOTAL (test code = ALKP) CBC W/AUTO [id number] 05:52:00 Test Item Value Reference Range Interpretation [...] DIFF/SCN CRITERIA MDIFF) - XR ABDOMEN 1 [id number] 01:30:00 Name: DORA JOSEPH [facility] : 1970 Age/S: 49 / M [address] [facility] Unit #: [id number] Loc: [place] [address] 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: Ted Coleman 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 Acct: [id number] Dis Date: Status: ADM INPHONE #: [phone] Exam Date: 01/06/202099 FAX #: Reason: NG Tube Placement Verification EXAMS: CPT: [id number] XR ABDOMEN 1 V 92574 Fluoro Time: DAP (Gy m2): Air Kerma [...] PAGE 1 Signed Report Name: DORA JOSEPH [facility] : 1970 Age/S: 49/ M [address] [place] [address] Unit #: [id number] Loc: [place] [address] Phys: Ted Coleman 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 Acct: [id number] Dis Date: Status: ADM IN PHONE #: [phone] Exam Date: 01/06/20200 FAX #: Reason: NG Tube Placement Verification EXAMS: CPT: [id number] XR ABDOMEN 1 V 73172 Fluoro Time: DAP (Gy m2): Air Kerma (mGy): <Continued> Technologist: RT Tatum(R) Trnscb Date/Time: 01/06/2020 (013) Herrera Orig Print D/T: S: 01/06/2020 (013) PAGE 2 Signed Report- CT ABD PELVIS W/O [id number] 19:42:00 [place]: St: REG -- Name: DORA JOSEPH [facility] : 1970 Age/S: 49/M [address] Unit: [id number] Loc: [place], [place]: [place] [address] Acct: [id number] Dis Date: Status: REG ER PHONE #: [phone] Exam Date: 12/13/20191924 FAX #: [phone] Reason: pain EXAMS: CPT CODE: [id number] CT ABD PELVIS W/O CONT 35762 Examination: CT scan abdomen and pelvis without [...] GarettVR5 Orig Pr int D/T: S: 12/13/2019 (1945 PAGE 1 Signed ReportBASIC METABOLIC [id number] 18:49:00 Test Item Value Reference Range Interpretation [...] code = CA) 8.6 mg/dl 8.0-10.5 N [id number] 18:49:00 Test Item Value Reference Range Interpretation Comments LIPASE (test code = LIP) 97 Units/L 65.0-230.0 N CBC W/AUTO [id number] 18:38:00 Test Item Value Reference Range Interpretation [...] K/mm3 0.0-0.2 N - XR CHEST 1 [id number] 18:36:00 [place]: St: PRE -- Name: DORA JOSEPH [facility] : 1970 Age/S: 49/M [address] [facility] [place] Unit #: [id number] [place] Phys: [place] [id number] Acct: [id number] Dis Date: Status: PRE ER PHONE #: [phone] Exam Date: 12/13/20191821 FAX #: [phone] Reason: SOB EXAMS: CPT CODE: [id number] XR CHEST 1 V 57466 Examination: One view chest x-ray Location code: [...] : By: [email or web address] PAGE 1 Signed Report [place]: St: PRE ------ Name: DORA JOSEPH [facility] : 1970 Age/S: 49/M [address] [facility] Unit #: [id number] Loc: [place], [place] Phys: [place] [id number] Acct: [id number] Dis Date: Status: PRE ER PHONE #: [phone] Exam Date: 12/13/20191821 FAX #: [phone] Reason:SOB EXAMS: CPT CODE: [id number] XR CHEST 1 V 85513 (Continued) Orig Print D/T: S: 12/13/2019 (183) [...] Received comment: User comments: Slide comments:BASIC METABOLIC [id number] 07:34:00 Test Item Value Reference Range Interpretation [...] S NOT APPLICABLE FOR DIALYSIS PATIEN TS. [id number] 07:26:00 Test Item Value Reference Range Interpretation Comments PHOSPHORUS (BEAKER) (test code = 3.1 mg/dL 2.3-4.7 604) [id number] 07:26:00 Test Item Value Reference Range Interpretation Comments MAGNESIUM (BEAKER) (test code = 1.6 mg/dL 1.6-2.6 627) RAD, ABDOMEN/KUB, 1 VIEW [id number] 07:04:00Reason for exam:->ileusFINAL REPORT Abdomen , one [...] MDReport Verified Date/Time: 04/03/2019 07:04:46 Reading Location: [facility] C013X Ortho Consult Reading Room BASIC METABOLIC [id number] 06:47:00 Test Item Value Reference Range Interpretation [...] code = 413) URINALYSIS WITH MICROSCOPIC IF [id number] 22:01:00 Test Item Value Reference Range Interpretation [...] 463) SOURCE(BEAKER) (test code = 2795) URINALYSIS [id number] 22:01:00 Test Item Value Reference Range Interpretation Comments RBC UA (BEAKER) (test code = 519) 18 /HPF WBC UA (BEAKER) (test code = 520) 1 /HPF CALCIUM OXALATE CRYSTALS (BEAKER) Occasional (test code = 518) [id number] 05:49:00 Test Item Value Reference Range Interpretation Comments PHOSPHORUS (BEAKER) (test code = 2.5 mg/dL 2.3-4.7 604) [id number] 05:49:00 Test Item Value Reference Range Interpretation Comments MAGNESIUM (BEAKER) (test code = 1.7 mg/dL 1.6-2.6 627) BASIC METABOLIC [id number] 05:49:00 Test Item Value Reference Range Interpretation [...] (BEAKER) (test code = 413) BASIC METABOLIC [id number] 06:19:00 Test Item Value Reference Range Interpretation [...] S NOT APPLICABLE FOR DIALYSIS PATIEN TS. [id number] 06:10:00 Test Item Value Reference Range Interpretation Comments MAGNESIUM (BEAKER) 1.8 mg/dL 1.6-2.6 Specimen slightly (test code = 627) hemolyzed [id number] 06:10:00 Test Item Value Reference Range Interpretation [...] (BEAKER) (test code = 413) BASIC METABOLIC [id number] 04:57:00 Test Item Value Reference Range Interpretation [...] S NOT APPLICABLE FOR DIALYSIS PATIEN TS. [id number] 04:55:00 Test Item Value Reference Range Interpretation Comments PHOSPHORUS (BEAKER) (test code = 2.6 mg/dL 2.3-4.7 604) [id number] 04:55:00 Test Item Value Reference Range Interpretation Comments MAGNESIUM (BEAKER) (test code = 1.8 mg/dL 1.6-2.6 627) CT, [id number] 14:16:00FINAL REPORT TECHNIQUE: CT of the abdomen [...] Kim MDReport Verified Date/Time: 03/29/2019 14:16:01Reading Location: [facility] B1 C013Y CT Body Reading Room , ABDOMEN/KUB, 1 VIEW [id number] 10:23:00Reason for exam:->evaluate ileusFINAL REPORT Technique: Supine [...] MDReport Verified Date/Time: 03/29/2019 10:23:29 Reading Location: [facility] Reading Room CBC (HEMOGRAM ONLY)2019-03-29 08:10:00 [...] WBC 0-0 (BEAKER) (test code = 413) [id number] 06:20:00 Test Item Value Reference Range Interpretation Comments PHOSPHORUS (BEAKER) (test code = 2.6 mg/dL 2.3-4.7 604) [id number] 06:20:00 Test Item Value Reference Range Interpretation Comments MAGNESIUM (BEAKER) (test code = 2.0 mg/dL 1.6-2.6 627) BASIC METABOLIC [id number] 06:20:00 Test Item Value Reference Range Interpretation [...] TS. RAD, ABDOMEN SERIES W/ UPRIGHT PA [id number] 22:18:00Reason for exam:- >eval ileusFINAL REPORT CLINICAL [...] with CT abdomen pelvis. Signed: Mari Bethea [facility] Verified Date/Time: 03/28/2019 22:18:50 RAD, ABDOMEN/KUB, 1 VIEW [id number] 11:23:00Reason for exam:->abdominal distensionShould this be performed [...] Cruz Verified Date/Time: 03/28/2019 11:23:34 Reading Location: [facility] Radiology Reading Room TISSUE [id number] 09:00:00Surgical Pathology Report Case: [id number] Authorizing Provider: Graciela Garrison MD Collected: 03/25/2019 1133 Ordering Location: [facility] Received: 03/25/2019 1527 SERVICES Pathologist: [...] NEGATIVEFOR MALIGNANCY Signing Pathologist Direct Phone Line: [phone] signed by Jordan Celaya MD on 03/28/2019 at 9:00 [id number] and postop diagnosis: ileostomy statusA. End ileostomy; [...] nodes are not identified in the mesentery. Latex Dipper sections are submitted. Section code: A, cash application representative section of each end of first mentioned segment of small bowel; A2, cash application representative of first mentioned segment of small bowel mucosa; A3, area of hemorrhagic mesentery of second mentioned segment of mucosa; A4, cash application representative of hemorrhagic mucosa at open end of second portion of small bowel; A5, cash application representative of stapled margin from second mentioned [...] 0.2 cm. No gross lesions are identified. Latex Dipper sections are submitted. Section code: B1, proximal margin en face and tip; B2, cash application representative cross section. CG/pl Performed.[id number] 06:23:00 Test Item Value Reference Range Interpretation Comments PHOSPHORUS (BEAKER) (test code = 2.7 mg/dL 2.3-4.7 604) [id number] 06:23:00 Test Item Value Reference Range Interpretation Comments MAGNESIUM (BEAKER) (test code = 1.9 mg/dL 1.6-2.6 627) BASIC METABOLIC [id number] 06:23:00 Test Item Value Reference Range Interpretation [...] S NOT APPLICABLE FOR DIALYSIS PATIEN TS. [id number] 08:20:00 Test Item Value Reference Range Interpretation Comments PHOSPHORUS (BEAKER) (test code = 2.6 mg/dL 2.3-4.7 604) [id number] 08:20:00 Test Item Value Reference Range Interpretation Comments MAGNESIUM (BEAKER) (test code = 1.8 mg/dL 1.6-2.6 627) BASIC METABOLIC [id number] 08:20:00 Test Item Value Reference Range Interpretation [...] S NOT APPLICABLE FOR DIALYSIS PATIEN TS. [id number] 06:06:00 Test Item Value Reference Range Interpretation Comments PHOSPHORUS (BEAKER) (test code = 4.1 mg/dL 2.3-4.7 604) [id number] 06:06:00 Test Item Value Reference Range Interpretation Comments MAGNESIUM (BEAKER) (test code = 1.8 mg/dL 1.6-2.6 627) BASIC METABOLIC [id number] 06:06:00 Test Item Value Reference Range Interpretation [...] S NOT APPLICABLE FOR DIALYSIS PATIEN TS. [id number] 06:03:00 Test Item Value Reference Range Interpretation Comments PHOSPHORUS (BEAKER) (test code = 4.2 mg/dL 2.3-4.7 604) [id number] 06:03:00 Test Item Value Reference Range Interpretation Comments MAGNESIUM (BEAKER) (test code = 2.0 mg/dL 1.6-2.6 627) BASIC METABOLIC [id number] 06:03:00 Test Item Value Reference Range Interpretation [...] WBC 0-0 (BEAKER) (test code = 413) [id number] 05:52:00 Test Item Value Reference Range Interpretation Comments PHOSPHORUS (BEAKER) (test code = 4.2 mg/dL 2.3-4.7 604) [id number] 05:52:00 Test Item Value Reference Range Interpretation Comments MAGNESIUM (BEAKER) (test code = 1.9 mg/dL 1.6-2.6 627) BASIC METABOLIC [id number] 05:52:00 Test Item Value Reference Range Interpretation [...] S NOT APPLICABLE FOR DIALYSIS PATIEN TS. [id number] 06:51:00 Test Item Value Reference Range Interpretation Comments PHOSPHORUS (BEAKER) (test code = 4.3 mg/dL 2.3-4.7 604) [id number] 06:51:00 Test Item Value Reference Range Interpretation Comments MAGNESIUM (BEAKER) (test code = 2.0 mg/dL 1.6-2.6 627) BASIC METABOLIC [id number] 06:51:00 Test Item Value Reference Range Interpretation [...] 0-0 (BEAKER) (test code = 413) TISSUE [id number] 11:50:00Surgical Pathology Report Case: [id number] Authorizing Provider: Mela Larson MD Collected: 03/18/2019 1827 Ordering Location: [facility] Received: 03/21/2019 0823 SERVICES Pathologist: Jordan Celaya MD Specimen: Small Bowel, NOS A. SMALL BOWEL, ILEOSTOMY PROLAPSE, TAKEDOWN: - ANASTOMOSIS SITE WITH ACTIVE CHRONIC INFLAMMATION AND FOCAL ISCHEMIC CHANGES - MUCOSAL RESECTIONMARGINS, NEGATIVE FOR MALIGNANCY - ONE BENIGN LYMPH NODE (0/1) - NEGATIVE FOR DYSPLASIA OR MALIGNANCY Signing Pathologist Direct Phone Line: [phone] signed by Jordan Celaya MD on 03/22/2019 at 11:50 [id number] of ileostomyReceived in a container labeled "small [...] 0.5 to 1.2 cm in greatest dimension. Latex Dipper sections are submitted as follows: A1-A2, mucosal resection margin, en face; A3-A6, cash application representative sections of the possible ostomy stump; A7-A11, serial cash application representative sections from mucosal resection margin to the possible ostomy stump; A12, two lymph nodes. TH/plPerformed.[id number] 06:58:00 Test Item Value Reference Range Interpretation Comments PHOSPHORUS (BEAKER) (test code = 3.8 mg/dL 2.3-4.7 604) [id number] 06:58:00 Test Item Value Reference Range Interpretation Comments MAGNESIUM (BEAKER) (test code = 2.0 mg/dL 1.6-2.6 627) BASIC METABOLIC [id number] 06:58:00 Test Item Value Reference Range Interpretation [...] PATIEN TS. CBC W/PLT COUNT & AUTO [id number] 05:42:00 Test Item Value Reference Range Interpretation [...] PERCENT (BEAKER) (test code = 2801) FL, [id number] 17:42:00Reason for exam:->evaluate for colon stricture as [...] Lopezort Verified Date/Time: 03/21/2019 17:42:21 Reading Location: [facility] B1 C013X [facility] Consult Reading Room [id number] 03:58:00 Test Item Value Reference Range Interpretation Comments PHOSPHORUS (BEAKER) (test code = 3.0 mg/dL 2.3-4.7 604) [id number] 03:58:00 Test Item Value Reference Range Interpretation Comments MAGNESIUM (BEAKER) (test code = 2.0 mg/dL 1.6-2.6 627) BASIC METABOLIC [id number] 03:58:00 Test Item Value Reference Range Interpretation [...] PATIEN TS. CBC W/PLT COUNT & AUTO [id number] 03:20:00 Test Item Value Reference Range Interpretation [...] (BEAKER) (test code = 2801) BASIC METABOLIC [id number] 06:26:00 Test Item Value Reference Range Interpretation [...] S NOT APPLICABLE FOR DIALYSIS PATIEN TS. [id number] 06:05:00 Test Item Value Reference Range Interpretation Comments PHOSPHORUS (BEAKER) (test code = 2.2 mg/dL 2.3-4.7 L 604) [id number] 06:05:00 Test Item Value Reference Range Interpretation Comments MAGNESIUM (BEAKER) (test code = 2.0 mg/dL 1.6-2.6 627) CBC W/PLT COUNT & AUTO [id number] 05:25:00 Test Item Value Reference Range Interpretation [...] 0-1 PERCENT (BEAKER) (test code = 2801) [id number] 04:31:00 Test Item Value Reference Range Interpretation Comments PHOSPHORUS (BEAKER) (test code = 3.7 mg/dL 2.3-4.7 604) [id number] 04:31:00 Test Item Value Reference Range Interpretation Comments MAGNESIUM (BEAKER) (test code = 1.9 mg/dL 1.6-2.6 627) BASIC METABOLIC [id number] 04:31:00 Test Item Value Reference Range Interpretation [...] PATIEN TS. CBC W/PLT COUNT & AUTO [id number] 04:15:00 Test Item Value Reference Range Interpretation [...] 0-1 PERCENT (BEAKER) (test code = 2801) [id number] 06:41:00 Test Item Value Reference Range Interpretation Comments PHOSPHORUS (BEAKER) (test code = 3.1 mg/dL 2.3-4.7 604) [id number] 06:41:00 Test Item Value Reference Range Interpretation Comments MAGNESIUM (BEAKER) (test code = 1.9 mg/dL 1.6-2.6 627) BASIC METABOLIC [id number] 06:41:00 Test Item Value Reference Range Interpretation [...] PATIEN TS. CBC W/PLT COUNT & AUTO [id number] 06:36:00 Test Item Value Reference Range Interpretation [...] PERCENT (BEAKER) (test code = 2801) CT, [id number] 17:04:00No PO contrastFINAL REPORT ABDOMINAL AND PELVIS [...] MDReport Verified Date/Time: 03/17/2019 17:04:19 Reading Location: [facility] B1 C013Y CT Body Reading Room XR ABDOMEN 2 [id number] 09:03:45XR ABDOMEN 2 VIEWSLOCATION: [id number]: Colstomy ProlapseCOMPARISON: Chest radiograph 04/15/2017, CT of [...] Nonspecific, nonobstructive bowel gas pattern.XR CHEST 1 [id number] 11:32:15EXAM: CHEST ONE VIEWINDICATION: Chest painCOMPARISON: None availableTECHNIQUE: AP view of the chest.FINDINGS: The cardiomediastinal silhouette is normal. The lungs are clearbilaterally. No pneumothoraxor pleural effusion is identified. Theosseous structures are unremarkable.IMPRESSION: No acute cardiopulmonary process.LOCATION: [id number] Type and [id number] 21:21:00 Test Item Value Reference Range Interpretation Comments ABO type (test code = ABO) O Rh Type (test code = RH) Positive Comprehensive Metabolic [id number] 20:36:00 Test Item Value Reference Range Interpretation [...] is not provided , and the patient isCandelario-Katie can, multiply by 1.2 12. If sex [...] the National Kidney Foundation,http ://nkd ep.nih.gov Alcohol/Ethanol, [id number] 20:36:00 Test Item Value Reference Range Interpretation Comments Alcohol, Ethyl <0.01 g/dL 0.00-0.01 N Intoxicated 0 .080 g/dL (test code = ETOH) or more Prothrombin [id number] 20:00:00 Test Item Value Reference Range Interpretation Comments PT (test code = PT) 10.10 seconds 9.78-13.35 N INR (test code = INR) 0.88 Ratio 0.6-1.2 N Partial Thromboplastin [id number] 20:00:00 Test Item Value Reference Range Interpretation Comments aPTT (test code = PTT) 31.50 seconds 24.39-37.25 N CBC with [id number] 19:50:00 Test Item Value Reference Range Interpretation [...] code = ALYMPH) 2.2 K/cumm 0.5-4.6 N Elk Abs (test code = AMONO) 0.4 K/cumm 0.0-1.2 N Eos Abs (test code = AEOS) 0.17 K/cumm 0.00-0.74 N Baso Abs (test code = ABASO) 0.0 K/cumm 0.00-0.21 N [id number]& PELVIS W/O [id number] 17:36:28CT ABDOMEN AND PELVIS WITHOUT CONTRAST.CLINICAL HISTORY: [...]
[2022-09-18] MEDS ORDERED: NA CHLORIDE 0.9% 1,000 ML ONE (17:27)
[2022-09-18] MEDS ORDERED: ONDANSETRON 4 MG/2 ML VIAL ONE (17:27)
[2022-09-18] MEDS ORDERED: FAMOTIDINE 20 MG/2 ML VIAL IV ONE (17:27)
[2022-09-18 18:41] LABS: Albumin 3.2 g/dL (3.4-5.0); Bilirubin Total 0.3 mg/dL (0.2-1.0); Protein, Total 7.5 g/dL (6.4-8.2)
[2022-09-18 18:57] LABS: Absolute Lymphocytes (CBC) 1.3 K/uL (0.7-4.9); Hematocrit 32.9 % (39.6-49.0); Lymphocytes % 15.3 % (15.3-44.8); MCV 89.5 fL (80-100); MPV 6.2 fL (7.6-11.3); RBC Red Blood Cell Count 3.67 M/uL (4.33-5.43)
--- NOTE | 2022-09-18 20:02 | ER ---
Nurse's Notes [facility] Name: Rico Mcneill Age: 52 yrs Sex: Male : 1970 Arrival Date: 09/18/2022 Time: 17:11 Bed 2 Private MD: Diagnosis: Colostomy complication, unspecified Presentation: 09/18 17:12 Chief complaint: EMS states: toned out to [employer] parking lot for abdominal pain X 4 days. ld1 Lower abdominal bruising - tender to touch. Coronavirus screen: At this time, the client does not indicate any symptoms associated with coronavirus-19. Ebola Screen: No symptoms or risks identified at this time. Initial Sepsis Screen: Does the patient meet any 2 criteria? No. Patient's initial sepsis screen is negative. Does the patient have a suspected source of infection? No. Patient's initial sepsis screen is negative. 17:12 Method Of Arrival: EMS: [facility] ld1 17:12 Risk Assessment: Do you want to hurt yourself or someone else? Patient reports no ld1 desire to harm self or others. Onset of symptoms was September 18, 2022. 17:12 Acuity: OCTAVIO 3 ld1 Triage Assessment: 17:12 General: Appears in no apparent distress. comfortable, Behavior is calm, cooperative, ld1 appropriate for age. Pain: Complains of pain in right lower quadrant and left lower quadrant Pain does not radiate. Pain currently is 5 out of 10 on a pain scale. Quality of pain is described as throbbing, Pain began suddenly, Is continuous. EENT: No signs and/or symptoms were reported regarding the EENT system. Neuro: Level of Consciousness is awake, alert, obeys commands, Oriented to person, place, time, situation. Cardiovascular: Capillary refill < 3 seconds Patient's skin is warm and dry. Respiratory: Airway is patent Respiratory effort is even, unlabored. GI: Abdomen is flat, non-distended, Ileostomy site is reddened. Ostomy appliance is not intact. Provided patient with new ostomy bag. Helped change appliance. Pt denies pain at this time to ostomy site. : No signs and/or symptoms were reported regarding the genitourinary system. Derm: No signs and/or symptoms reported regarding the dermatologic system. Musculoskeletal: No signs and/or symptoms reported regarding the musculoskeletal system. Historical: - Allergies: 17:12 NKDA; ld1 - PMHx: 17:12 Hypertensive disorder; ileostomy; ld1 - PSHx: 17:12 Small bowel resection with ileostomy; ld1 - Immunization history:: Adult Immunizations not immunized, Client reports having NOT received the Covid vaccine. - Social history:: Smoking status: Patient denies any tobacco usage or history of. Patient/guardian denies using alcohol. Screenin:17 [facility] ED Fall Risk Assessment (Adult) History of falling in the last 3 months, ld1 including since admission No falls in past 3 months (0 pts). Abuse screen: Denies threats or abuse. Denies injuries from another. Nutritional screening: No deficits noted. Tuberculosis screening: No symptoms or risk factors identified. Assessment: 17:17 Reassessment: See triage assessment. ld1 18:31 Reassessment: Patient appears in no apparent distress at this time. No changes from ld1 previously documented assessment. Patient and/or family updated on plan of care and expected duration. Pain level reassessed. 18:43 Reassessment: Patient appears in no apparent distress at this time. Patient and/or ld1 family updated on plan of care and expected duration. Pain level reassessed. 19:22 Reassessment: Patient appears in no apparent distress at this time. No changes from kl previously documented assessment. Vital Signs: 17:12 BP 94 / 75; Pulse 80; ld1 17:12 Pulse 103; Resp 18; Pulse Ox 100% on R/A; Weight 61.23 kg; Height 5 ft. 8 in. (172.72 ld1 cm); Pain 5/10; 18:43 BP 111 / 74; Pulse 80; Resp 18; Pulse Ox 100% on R/A; ld1 19:21 BP 96 / 54; Pulse 86; Resp 15; Temp 97.3(TE); Pulse Ox 100% on R/A; kl 17:12 Body Mass Index 20.52 (61.23 kg, 172.72 cm) ld1 ED Course: 17:11 Patient arrived in ED. ld1 17:12 Arm band placed on right wrist. ld1 17:14 Triage completed. ld1 17:16 Avtar Fierro NP is PHCP. pm1 17:16 Ori Downing MD is Attending Physician. pm1 17:17 Patient has correct armband on for positive identification. Placed in gown. Bed in low ld1 position. Call light in reach. Side rails up X2. compliance monitor on. Pulse ox on. NIBP on. Door closed. Noise minimized. Warm blanket given. 17:17 No provider procedures requiring assistance completed. ld1 17:41 Rosaura Lilly, RN is Primary Nurse. ld1 17:55 Initial lab(s) drawn, by me, sent to lab. Missed attempt(s): 22 gauge in left forearm. vg1 17:59 Missed attempt(s): 22 gauge in left forearm. vg1 19:22 No apparent distress. Resting quietly. Appears to be sleeping. 19:59 Attending Physician role handed off by Ori Downing MD bs3 19:59 Thad Greenwood MD is Attending Physician. bs3 20:15 IV discontinued, intact, bleeding controlled, No redness/swelling at site. Pressure ll3 dressing applied. Administered Medications: 18:31 Drug: NS 0.9% 1000 ml Route: IV; Rate: 1 bolus; Site: left hand; ld1 19:00 Follow up: Response: No adverse reaction ld1 18:31 Drug: Pepcid (famotidine) 20 mg Route: IVP; Site: left hand; ld1 19:00 Follow up: Response: No adverse reaction ld1 18:31 Drug: Zofran (Ondansetron) 4 mg Route: IVP; Site: left hand; ld1 19:00 Follow up: Response: No adverse reaction ld1 Medication: 17:17 VIS not applicable for this client. ld1 Outcome: 20:01 Discharge ordered by . bs3 20:15 Discharged to home ambulatory. ll3 20:15 Condition: stable 20:15 Discharge instructions given to patient, Instructed on discharge instructions, follow up and referral plans. Demonstrated understanding of instructions, follow-up care. 20:18 Patient left the ED. ll3 Signatures: Marj Ricci RN RN kl Marinas, Patrick, NP RELAY OPERATOR pm1 Tamera Blas RN RN vg1 Rosaura Lilly RN RN ld1 Demetris Klein RN RN ll3 Ori Downing MD MD jr Thad Greenwood MD MD bs3
--- NOTE | 2022-09-18 20:02 | EDPHYS ---
Physician Documentation [facility] Name: Rico Mcneill Age: 52 yrs Sex: Male : 1970 Arrival Date: 09/18/2022 Time: 17:11 Bed 2 Private MD: ED Physician Thad Greenwood HPI: 09/18 20:02 This 52 yrs old Unknown Male presents to ER via EMS with complaints of Abdominal Pain. bs3 17:19 Patient is a 52-year-old gentleman who has a high output ostomy, states he drinks all jr11 day but often gets dehydrated and has come for IV fluids, patient states he has been drinking all day today, felt some lightheadedness and continues to have diffuse abdominal pain. Patient states that the abdominal pain is no different than his prior visits. No change in quality or quantity.. Historical: - Allergies: 17:12 NKDA; ld1 - PMHx: 17:12 Hypertensive disorder; ileostomy; ld1 - PSHx: 17:12 Small bowel resection with ileostomy; ld1 - Immunization history:: Adult Immunizations not immunized, Client reports having NOT received the Covid vaccine. - Social history:: Smoking status: Patient denies any tobacco usage or history of. Patient/guardian denies using alcohol. ROS: 17:19 All other systems are negative. jr11 20:02 Constitutional: Negative for fever, chills bs3 Exam: 17:19 Constitutional: This is a well developed, well nourished patient who is awake, alert, jr11 and in no acute distress. Head/Face: Normocephalic, atraumatic. Eyes: Extra-ocular motions intact. Lids and lashes normal. Conjunctiva and sclera are non-icteric and not injected. Cornea within normal limits. Periorbital areas with no swelling, redness, or edema. ENT: dry mm Chest/axilla: Normal chest wall appearance and motion. Nontender with no deformity. No lesions are appreciated. Cardiovascular: tachy regular Respiratory: Lungs have equal breath sounds bilaterally, clear to auscultation and percussion. No rales, rhonchi or wheezes noted. No increased work of breathing, no retractions or nasal flaring. Abdomen/GI: ostomy in place with brown watery stool MS/ Extremity: Pulses equal, no cyanosis. Neurovascular intact. Full, normal range of motion. Neuro: Awake and alert, GCS 15, oriented to person, place, time, and situation. No gross motor or sensory deficits. Vital Signs: 17:12 BP 94 / 75; Pulse 80; ld1 17:12 Pulse 103; Resp 18; Pulse Ox 100% on R/A; Weight 61.23 kg; Height 5 ft. 8 in. (172.72 ld1 cm); Pain 5/10; 18:43 BP 111 / 74; Pulse 80; Resp 18; Pulse Ox 100% on R/A; ld1 19:21 BP 96 / 54; Pulse 86; Resp 15; Temp 97.3(TE); Pulse Ox 100% on R/A; kl 17:12 Body Mass Index 20.52 (61.23 kg, 172.72 cm) ld1 MDM: 17:16 Patient medically screened. [facility] 17:19 Differential diagnosis: gastritis, gastroesophageal reflux disease, Irritable bowel jr11 syndrome, non-specific abd pain. Data reviewed: vital signs, nurses notes. Test considered but Not performed: CT: Pt has had multiple, no change in character. Historians other than the Patient: EMS: slight tachycardia, otherwise normal . Care significantly affected by the following Social Determinants of Health: homeless, no insurance, no GI or PCP, gets all care through ED, referrals given . ED course: Pt states he needs ostomy supplies. 19:59 Test considered but Not performed:. ED course: pt signed out pending cbc, cbc notable bs3 for slightly low hgb but no active bleeding, possible mild misha, pt reassessed at 1950, feeling well, pt clinically stable for dc home. 09/18 17:17 Order name: CBC with Diff; Complete Time: 19:59 [facility] 09/18 17:17 Order name: CMP; Complete Time: 18:48 09/18 17:17 Order name: Lipase; Complete Time: 18:48 [facility] 09/18 17:17 Order name: IV Saline Lock; Complete Time: 18:31 09/18 17:17 Order name: Labs collected and sent; Complete Time: 18:31 Administered Medications: 18:31 Drug: NS 0.9% 1000 ml Route: IV; Rate: 1 bolus; Site: left hand; ld1 19:00 Follow up: Response: No adverse reaction ld1 18:31 Drug: Pepcid (famotidine) 20 mg Route: IVP; Site: left hand; ld1 19:00 Follow up: Response: No adverse reaction ld1 18:31 Drug: Zofran (Ondansetron) 4 mg Route: IVP; Site: left hand; ld1 19:00 Follow up: Response: No adverse reaction ld1 Disposition Summary: 09/18/22 20:01 Discharge Ordered Location: Home bs3 Problem: an acute exacerbation bs3 Symptoms: have improved bs3 Condition: Stable bs3 Diagnosis - Colostomy complication, unspecified bs3 Followup: bs3 - With: Private Physician - When: 5 - 6 days - Reason: Re-evaluation by your physician Discharge Instructions: - Discharge Summary Sheet bs3 - Colostomy Home Guide, Adult bs3 Forms: - Medication Reconciliation Form bs3 - Thank You Letter bs3 - Antibiotic Education bs3 - Prescription Opioid Use bs3 Signatures: Dispatcher [employer] Rosaura Vaz RN RN ld1 Ori Downing MD MD jr11 Thad Greenwood MD MD bs3
[2022-09-18 21:35] VITALS: O2SAT 100
[2022-09-18 21:37] VITALS: BP 96/54; TEMP 97.3
--- NOTE | 2022-09-19 13:23 | EKG ---
Test Date: 2022-09-17 Test Time: 09:51:43 Cuff Setter Overlock: GERRY MEASUREMENT RESULTS: Intervals: Rate: 73 AL: 136 QRSD: 96 QT: 370 QTc: 407 [place]: P: 80 AL: 136 QRS: 71 T: 79 INTERPRETIVE STATEMENTS: Sinus rhythm with premature supraventricular complexes Otherwise normal ECG Compared to ECG 09/14/2022 03:25:40 Atrial premature complex(es) now present Electronically Signed On 09-19-22 13:17:44 CORPORATE LOGISTICS MANAGER by Rivera Ascencio
== END 2022-09-18 20:18 | disposition home or self-care (01) ==
LOC: ER 17:11
DX: K94.09 Other complications of colostomy (principal)
CPT/HCPCS: 36415; 80053; 83690; 85025; 93005; 96374; 96375; 99284; J2405; J7030

== ENCOUNTER 2022-09-25 18:02 | Emergency (ER) | payer SELFPAY ==
--- NOTE | 2022-09-25 18:13 | ER ---
Nurse's Notes [facility] Name: Rico Mcneill Age: 52 yrs Sex: Male : 1970 Arrival Date: 09/25/2022 Time: 18:03 Bed Waiting Private MD: Diagnosis: Colostomy complication, unspecified Presentation: 09/25 18:11 Chief complaint: Patient states: Out of ostomy bags again. Coronavirus screen: Client ll1 denies travel out of the [place] in the last 14 days. At this time, the client does not indicate any symptoms associated with coronavirus-19. Ebola Screen: Patient denies travel to an Ebola-affected area in the 21 days before illness onset. Initial Sepsis Screen: Does the patient meet any 2 criteria? No. Patient's initial sepsis screen is negative. Does the patient have a suspected source of infection? No. Patient's initial sepsis screen is negative. Risk Assessment: Do you want to hurt yourself or someone else? Patient reports no desire to harm self or others. Onset of symptoms is unknown. 18:11 Method Of Arrival: Ambulatory ll1 18:11 Acuity: OCTAVIO 5 ll1 Triage Assessment: 18:48 General: Appears in no apparent distress. Behavior is calm, cooperative, appropriate ll1 for age. Pain: Denies pain. GI: No deficits noted. Historical: - Allergies: 18:12 NKDA; ll1 - PMHx: 18:12 Hypertensive disorder; ileostomy; ll1 - PSHx: 18:12 Small bowel resection with ileostomy; ll1 - Immunization history:: Client reports receiving the 2nd dose of the Covid vaccine. - Social history:: Smoking status: Patient reports use of chewing tobacco. Screenin:43 [facility] ED Fall Risk Assessment (Adult) History of falling in the last 3 months, ss including since admission No falls in past 3 months (0 pts). Abuse screen: Denies threats or abuse. Denies injuries from another. Nutritional screening: No deficits noted. Tuberculosis screening: Never had TB. Assessment: 18:05 Reassessment: Notified Basilio Rehmantower supervisor to bring colostomy supplies prior to ss discharge. 18:48 GI: Bowel sounds present X 4 quads. Abd is soft and non tender X 4 quads. ll1 18:49 Reassessment: No changes from previously documented assessment. given ostomy supplies. ll1 Vital Signs: 18:11 BP 124 / 85; Pulse 106; Resp 17; Temp 97.6; Pulse Ox 96% ; Weight 65.77 kg; Height 6 ll1 ft. 1 in. (185.42 cm); Pain 0/10; 18:11 Body Mass Index 19.13 (65.77 kg, 185.42 cm) ll1 ED Course: 18:03 Patient arrived in ED. rg4 18:08 Saad Alberto DO is Attending Physician. ms3 18:12 Triage completed. ll1 18:12 Giovanny Hicks DO is Referral Physician. ms3 18:12 Arm band placed on. ll1 18:43 Patient has correct armband on for positive identification. ss 18:43 No provider procedures requiring assistance completed. Patient did not have IV access ss during this emergency room visit. Administered Medications: No medications were administered Medication: 18:49 VIS not applicable for this client. ll1 Outcome: 18:12 Discharge ordered by MD. ms3 18:48 Discharged to home ambulatory. ll1 18:48 Condition: stable 18:48 Discharge instructions given to patient, Instructed on discharge instructions, follow up and referral plans. Demonstrated understanding of instructions, follow-up care. 18:49 Patient left the ED. 1 Signatures: Eryn Aceves RN RN Karly Woodard rg4 Beth Ricci, BRITTNY RN ll1 Saad Alberto DO DO ms3
--- NOTE | 2022-09-25 18:13 | EDPHYS ---
Physician Documentation [facility] Name: Rico Mcneill Age: 52 yrs Sex: Male : 1970 Arrival Date: 09/25/2022 Time: 18:03 Bed Waiting Private MD: ED Physician Saad Alberto HPI: 09/25 18:38 This 52 yrs old Male presents to ER via Ambulatory with complaints of Needs a colostomy ms3 bag. 18:38 52-year-old male with past medical history of hypertension and status post ileostomy ms3 presents via [facility] for need of ostomy bag. Patient denies pain, fevers, chills, nausea, vomiting.. Historical: - Allergies: 18:12 NKDA; ll1 - PMHx: 18:12 Hypertensive disorder; ileostomy; ll1 - PSHx: 18:12 Small bowel resection with ileostomy; ll1 - Immunization history:: Client reports receiving the 2nd dose of the Covid vaccine. - Social history:: Smoking status: Patient reports use of chewing tobacco. ROS: 18:38 Constitutional: Negative for fever, and chills. Neck: Negative for injury, pain, and ms3 swelling, Cardiovascular: Negative for chest pain, and palpitations. Respiratory: Negative for shortness of breath, cough, wheezing, and pleuritic chest pain. 18:38 MS/Extremity: Negative for injury and deformity, Skin: Negative for injury, rash, and discoloration. 18:38 Abdomen/GI: Positive for Ostomy. Exam: 18:38 Constitutional: This is a well developed, well nourished patient who is awake, alert, ms3 and in no acute distress. Head/Face: Normocephalic, atraumatic. Neck: Trachea midline, no cervical lymphadenopathy. Supple, full range of motion without nuchal rigidity, or vertebral point tenderness. No Meningismus. Chest/axilla: Normal chest wall appearance and motion. Nontender with no deformity. Cardiovascular: Regular rate and rhythm with a normal S1 and S2. No gallops, murmurs, or rubs. Normal PMI, no JVD. No pulse deficits. Respiratory: Lungs have equal breath sounds bilaterally, clear to auscultation and percussion. No rales, rhonchi or wheezes noted. No increased work of breathing, no retractions or nasal flaring. 18:38 Abdomen/GI: Inspection: abdomen appears normal, Bowel sounds: normal, Palpation: abdomen is soft and non-tender, Ostomy without surrounding erythema, stool in bag.. Vital Signs: 18:11 BP 124 / 85; Pulse 106; Resp 17; Temp 97.6; Pulse Ox 96% ; Weight 65.77 kg; Height 6 ll1 ft. 1 in. (185.42 cm); Pain 0/10; 18:11 Body Mass Index 19.13 (65.77 kg, 185.42 cm) ll1 MDM: 18:12 Patient medically screened. ms3 18:38 Differential Diagnosis Need for ostomy bag. Data reviewed: vital signs, nurses notes, ms3 and as a result, I will discharge patient. Care significantly affected by the following chronic conditions: Hypertension. Care significantly affected by the following Social Determinants of Health: Poor access to healthcare and/or lack of insurance, Poor access to transportation, Inadequate housing. Counseling: I had a detailed discussion with the patient and/or guardian regarding: the need for outpatient follow up, to return to the emergency department if symptoms worsen or persist or if there are any questions or concerns that arise at home. ED course: Discussed return precautions with patient to include worsening symptoms, or any other concerns. Patient understands agrees with plan. All questions were answered. . Administered Medications: No medications were administered Disposition Summary: 09/25/22 18:12 Discharge Ordered Location: Home ms3 Condition: Stable ms3 Diagnosis - Colostomy complication, unspecified ms3 Followup: ms3 - With: Giovanny Hicks DO - When: 2 - 3 days - Reason: Recheck today's complaints Discharge Instructions: - Discharge Summary Sheet ms3 - Colostomy Home Guide, Adult ms3 Forms: - Medication Reconciliation Form ms3 - Thank You Letter ms3 - Antibiotic Education ms3 - Prescription Opioid Use ms3 Signatures: Beth Ricci RN RN ll1 Saad Alberto DO DO ms3
--- OUTSIDE RECORDS SUMMARY | 2022-09-25 18:21 | XMS REPORT | Continuity of Care Document ---
:1970 Author Organization [facility] t Address [facility] access hospital [address] [place] [address] Care Team Providers Name Role Phone UNKNOWN, REFFERING Primary Care Physician Unavailable Coco Nova Attending Clinician Unavailable Mark Perea Attending Clinician Unavailable Steve rUias Attending Clinician Unavailable YESSI RAMOS Attending Clinician Unavailable NELSON GARCIA Attending Clinician Unavailable KENDRA CARDENAS Attending Clinician Unavailable LEÓN EARL Attending Clinician Unavailable Aryan Tello MD Attending Clinician [phone] Marty CAPONE, Dee Dee Nelson Attending Clinician Shiela CAPONE, Romie Attending Clinician Pao Barton MD Attending Clinician Anya CAPONE, León Shaw Attending Clinician [phone] Teddy Carbajal MD Attending Clinician Bernabe Calvert [...] Clinician Lindsey Escobar, Steve Santana Attending Clinician [phone] KARIN BASSETT Attending Clinician Unavailable Bert [...] Date Expiration Date S kashif PFA EMERGENCY [id number] 2019 ADMIT 00:00:00 Problems Condition Condition Condition Status Onset Resolution Last Treating Co mments Source Name Details Category Date Date Treatment Clinician Date Light[place]ade Lightheade Disease Active [facility] 00 [place] Altered Altered Disease Active [place] bowel bowel 01-19 Health eliminatio eliminatio 00:00: [...] [facility] prolapse prolapse [facility]: Medica l 00 [place] Disorder Disorder Disease Active [facility] st[facility] 15 [facility] 00:00: 00 Dehydratio Dehydratio Disease Active H arris n n Health Encounter Encounter Disease Active Compa ris for ostomy for ostomy He [facility] care education education ALMA (acute ALMA (acute [...] U [facility] 6-09 [facility] 00:00: [address] No Known DA Active U 2020-08 [facility] 1-29 [place] [facility] 00:00: d 00 [facility] No Known DA Active U [facility] 9-05 Clear s 00:00: [facility] No Known DA Active U [facility] 9-05 Clear s 00:00: [facility] No Known DA Active U [facility] 7-03 Clear s 00:00: [facility] No Known DA Active U [facility]ie 5-14 Clear s 00:00: [facility] No Known DA Active U [...] Alcohol intake 2022-02-18 2022-02-18 Current drinker of [facility] 00:00:00 00:00:00 alcohol (finding) History [facility] 2019-03-17 2019-03-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 [facility] Alcohol Comment 00:00:00 00:00:00 Medical C enter Tobacco use and 2019-03-17 2019-03-[address] [facility] exposure 00:00:00 00:00:00 [facility] History [place] [facility] 2017-04-14 2017-04-14 1 [place] [facility] Worry 00:00:00 00:00:00 History [place] Food 2017-04-14 2017-04-14 1 [facility] Scarcity 00:00:00 00:00:00 Sex [birth year] At [birth year] Maged Douglas alth 00:00:00 00:00:00 Smoking Status Start Date Stop Date Source Never smoker [facility] Medications Ordered Filled Start Stop [...] 2021- No Altered 325mg QD Take 1 [place] ris sulfate 325 02-20 bowel tablet by [...] intestinal ostomy loperamide 2021- No Altered 4mg Q.12003352 Take 2 Lynne (IMODIUM) 2 02-20 bowel [id number] capsules Health mg capsule 00:00: 23:59 elimination [...] intestinal ostomy loperamide 2021- No Altered 4mg Q.38882154 Take 2 Lynne (IMODIUM) 2 02-20- bowel [id number] capsules Health mg capsule 00:00: 23:59 elimination [...] intestinal ostomy loperamide 2021- No Altered 4mg Q.58990581 Take 2 Lynne (IMODIUM) 2 02-20 bowel [id number] capsules Health mg capsule 00:00: 23:59 elimination [...] intestinal ostomy loperamide 2021- No Altered 4mg Q.29242370 Take 2 Lynne (IMODIUM) 2 02-20 bowel [id number] capsules Health mg capsule 00:00: 23:59 elimination [...] intestinal ostomy loperamide 2021- No Altered 4mg Q.40298269 Take 2 Lynne (IMODIUM) 2 02-20 bowel [id number] capsules Health mg capsule 00:00: 23:59 elimination [...] intestinal ostomy loperamide 2021- No Altered 4mg Q.18245713 Take 2 Lynne (IMODIUM) 2 02-20 bowel [id number] capsules Health mg capsule 00:00: 23:59 elimination [...] intestinal ostomy loperamide 2021- No Altered 4mg Q.35049578 Take 2 Lynne (IMODIUM) 2 02-20 bowel [id number] capsules Health mg capsule 00:00: 23:59 elimination [...] intestinal ostomy loperamide 2021- No Altered 4mg Q.66766501 Take 2 Lynne (IMODIUM) 2 02-20 bowel [id number] capsules Health mg capsule 00:00: 23:59 elimination [...] intestinal ostomy loperamide 2021- No Altered 4mg Q.50501769 Take 2 Lynne (IMODIUM) 2 02-20 bowel [id number] capsules Health mg capsule 00:00: 23:59 elimination [...] intestinal ostomy loperamide 2021- No Altered 4mg Q.42485419 Take 2 Lynne (IMODIUM) 2 02-20 bowel [id number] capsules Health mg capsule 00:00: 23:59 elimination [...] intestinal ostomy loperamide 2021- No Altered 4mg Q.43325728 Take 2 Lynne (IMODIUM) 2 02-20 bowel [id number] capsules Health mg capsule 00:00: 23:59 elimination [...] intestinal ostomy loperamide 2021- No Altered 4mg Q.27038349 Take 2 Lynne (IMODIUM) 2 02-2030 bowel [id number] capsules Health mg capsule 00:00: 23:59 elimination [...] intestinal ostomy loperamide 2021- No Altered 4mg Q.45667873 Take 2 Lynne (IMODIUM) 2 02-20-30 bowel [id number] capsules Health mg capsule 00:00: 23:59 elimination [...] intestinal ostomy loperamide 2021- No Altered 4mg Q.09487120 Take 2 Lynne (IMODIUM) 2 02-20-30 bowel [id number] capsules Health mg capsule 00:00: 23:59 elimination [...] intestinal ostomy loperamide 2021- No Altered 4mg Q.04914432 Take 2 Lynne (IMODIUM) 2 02-20-30 bowel [id number] capsules Health mg capsule 00:00: 23:59 elimination [...] intestinal ostomy loperamide 2021- No Altered 4mg Q.26996304 Take 2 Lynne (IMODIUM) 2 02-20-30 bowel [id number] capsules Health mg capsule 00:00: 23:59 elimination [...] intestinal ostomy loperamide 2021- No Altered 4mg Q.11608356 Take 2 Lynne (IMODIUM) 2 02-20-30 bowel [id number] capsules Health mg capsule 00:00: 23:59 elimination [...] intestinal ostomy loperamide 2021- No Altered 4mg Q.20764528 Take 2 Lynne (IMODIUM) 2 02-20-30 bowel [id number] capsules Health mg capsule 00:00: 23:59 elimination [...] intestinal ostomy loperamide 2021- No Altered 4mg Q.47110107 Take 2 Lynne (IMODIUM) 2 02-20 bowel [id number] capsules Health mg capsule 00:00: 23:59 elimination [...] intestinal ostomy loperamide 2021- No Altered 4mg Q.54045061 Take 2 Lynne (IMODIUM) 2 02-20-30 bowel [id number] capsules Health mg capsule 00:00: 23:59 elimination [...] Lynne (METAMUCIL) 02-20 bowel t} Packet by [facility] 6 gram PwPk 00:00: 23:59 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 loperamide 2021- No Altered 4mg Q.83958309 Take 2 Lynne (IMODIUM) 2 02-20-30 bowel [id number] capsules Health mg capsule 00:00: 23:59 elimination [...] intestinal ostomy loperamide 2021- No Altered 4mg Q.08945189 Take 2 Lynne (IMODIUM) 2 02-20 bowel [id number] capsules Health mg capsule 00:00: 23:59 elimination [...] 3 oral liquid 00 times daily psyllium 0 2021- No Altered 1{packe Take 1 Lynne (METAMUCIL) 02-1130 bowel t} Packet by [facility] 6 gram PwPk 00:00: 00:00 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 psyllium 2021-0 2021- No Altered 1{packe Take 1 Lynne (METAMUCIL) 02-1130 bowel t} Packet by [facility] 6 gram PwPk 00:00: 00:00 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 psyllium 2021- No Altered 1{packe Take 1 Lynne (METAMUCIL) 02-1130 bowel t} Packet by [facility] 6 gram PwPk 00:00: 00:00 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 psyllium 2021- No Altered 1{packe Take 1 Lynne (METAMUCIL) 02-1130 bowel t} Packet by [facility] 6 gram PwPk 00:00: 00:00 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 psyllium 2021- No Altered 1{packe Take 1 Lynne (METAMUCIL) 02-1130 bowel t} Packet by [facility] 6 gram PwPk 00:00: 00:00 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 psyllium 2021- No Altered 1{packe Take 1 Lynne (METAMUCIL) 02-1130 bowel t} Packet by [facility] 6 gram PwPk 00:00: 00:00 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 psyllium 2021- No Altered 1{packe Take 1 Lynne (METAMUCIL) 02-1130 bowel t} Packet by [facility] 6 gram PwPk 00:00: 00:00 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 psyllium 2021- No Altered 1{packe Take 1 Lynne (METAMUCIL) 02-1130 bowel t} Packet by [facility] 6 gram PwPk 00:00: 00:00 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 psyllium 2021- No Altered 1{packe Take 1 Lynne (METAMUCIL) 02-1130 bowel t} Packet by [facility] 6 gram PwPk 00:00: 00:00 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 psyllium 2021-0 2021- No Altered 1{packe Take 1 Lynne (METAMUCIL) 02-1130 bowel t} Packet by [facility] 6 gram PwPk 00:00: 00:00 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 psyllium 0 2021- No Altered 1{packe Take 1 Lynne (METAMUCIL) 02-11-30 bowel t} [facility] 6 gram PwPk 00:00: 00:00 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 psyllium 2021- No Altered 1{packe Take 1 Lynne (METAMUCIL) 02-11-30 bowel t} [facility] 6 gram PwPk 00:00: 00:00 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 psyllium 2021- No Altered 1{packe Take 1 Lynne (METAMUCIL) 02-11-30 bowel t} [facility] 6 gram PwPk 00:00: 00:00 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 psyllium 2021- No Altered 1{packe Take 1 Lynne (METAMUCIL) 02-11-30 bowel t} [facility] 6 gram PwPk 00:00: 00:00 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 psyllium 2021- No Altered 1{packe Take 1 Lynne (METAMUCIL) 02-11-30 bowel t} [facility] 6 gram PwPk 00:00: 00:00 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 psyllium 2021- No Altered 1{packe Take 1 Lynne (METAMUCIL) 02-11-30 bowel t} [facility] 6 gram PwPk 00:00: 00:00 elimination mouth 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 psyllium 0 2021- No Altered 1{packe Take 1 Lynne (METAMUCIL) 02-11-30 bowel t} [facility] 6 gram PwPk 00:00: 00:00 elimination mouth 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 psyllium 2021-0 2021- No Altered 1{packe Take 1 Lynne (METAMUCIL) 02-11 06-30 bowel t} [facility] 6 gram PwPk 00:00: 00:00 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 psyllium 2021- No Altered 1{packe Take 1 Lynne (METAMUCIL) 02-11-30 bowel t} Packet by [facility] 6 gram PwPk 00:00: 00:00 elimination mouth 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 psyllium 2021- No Altered 1{packe Take 1 Lynne (METAMUCIL) 02-11-30 bowel t} Packet by [facility] 6 gram PwPk 00:00: 00:00 elimination mouth 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 psyllium 2021- No Altered 1{packe Take 1 Lynne (METAMUCIL) 02-1130 bowel t} Packet by [facility] 6 gram PwPk 00:00: 00:00 elimination mouth 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 psyllium 2021- No Altered 1{packe Take 1 Lynne (METAMUCIL) 02-1130 bowel t} Packet by [facility] 6 gram PwPk 00:00: 00:00 elimination mouth 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 ascorbic 2021- No Altered 250mg QD Take 1 Momin rris acid, 01-2130 bowel tablet by [employer] vitamin C, 00:00: 23:59 elimination mouth 250 mg 00 :00 due to daily for tablet intestinal 60 days ostomy magnesium 2021- No Altered 800mg Q.5D Take 2 H arris oxide 01-21-30 bowel tablets by [employer] (MAG-OX) 00:00: 23:59 elimination mouth 2 400 mg 00 :00 due to times (241.3 mg intestinal daily for magnesium) ostomy 60 days tablet multivitami No Altered 1{tbl} QD Take 1 Lynne n with 01-21-30 bowel tablet by [employer] folic acid 00:00: 23:59 elimination mouth (THERA) 400 00 :00 due to daily for mcg tablet intestinal 60 days ostomy ascorbic 2021- No Altered 250mg QD Take 1 Momin rris acid, 01-21-30 bowel tablet by [employer] vitamin C, 00:00: 23:59 elimination mouth 250 [...] rris acid, 5- 07-30 bowel tablet by [facility] vitamin C, 00:00: 23:59 elimination [...] n with 5-23 03-30 bowel tablet by [facility] folic acid 00:00: 23:59 elimination mouth (THERA) 400 00 :00 due to daily for mcg tablet intestinal 60 days ostomy ascorbic 2021- No Altered 250mg QD Take 1 Momin rris acid, 5- 07-30 bowel tablet by [facility] vitamin C, 00:00: 23:59 elimination [...] rris acid, 5- 07-30 bowel tablet by [facility] vitamin C, 00:00: 23:59 elimination [...] Momin rris acid, 01-21-30 bowel tablet by [facility] vitamin C, 00:00: 23:59 elimination [...] rris acid, 5- 07-30 bowel tablet by [facility] vitamin C, 00:00: 23:59 elimination [...] rris acid, 5- 07-30 bowel tablet by [facility] vitamin C, 00:00: 23:59 elimination mouth 250 mg 00 :00 due to daily for tablet intestinal 60 days ostomy magnesium 2021-2021- No Altered 800mg Q.5D Take 2 H arris oxide 5- 07-30 bowel tablets by [facility] (MAG-OX) 00:00: 23:59 elimination mouth [...] H arris oxide 01-21-30 bowel tablets by [employer] (MAG-OX) 00:00: 23:59 elimination mouth 2 400 [...] arris oxide 5- 07-30 bowel tablets by [facility] (MAG-OX) 00:00: 23:59 elimination mouth [...] rris acid, -23 03-30 bowel tablet by [facility] vitamin C, 00:00: 23:59 elimination [...] Lynne n with 01-21-30 bowel tablet by [facility] folic acid 00:00: 23:59 elimination mouth (THERA) 400 00 :00 due to daily for mcg tablet intestinal 60 days ostomy ascorbic 2021-2021- No Altered 250mg QD Take 1 Momin rris acid, 01-21-30 bowel tablet by [facility] vitamin C, 00:00: 23:59 elimination mouth 250 mg 00 :00 due to daily for tablet intestinal 60 days ostomy magnesium 2021-0 2021- No Altered 800mg Q.5D Take 2 H arris oxide 5- 07-30 bowel tablets by [facility] (MAG-OX) 00:00: 23:59 elimination mouth [...] Momin rris acid, 01-21 bowel tablet by [facility] vitamin C, 00:00: 23:59 elimination [...] Momin rris acid, 01-21 bowel tablet by [facility] vitamin C, 00:00: 23:59 elimination [...] days ostomy loperamide 2021- No Altered 4mg Q.62024981 Take 2 Lynne (IMODIUM) 2 01-21-30 bowel [id number] capsules Health mg capsule 00:00: 00:00 elimination [...] days ostomy loperamide 2021- No Altered 4mg Q.05395669 Take 2 Lynne (IMODIUM) 2 01-21 bowel [id number] capsules Health mg capsule 00:00: 00:00 elimination [...] days ostomy loperamide 2021- No Altered 4mg Q.99722399 Take 2 Lynne (IMODIUM) 2 01-21-30 bowel [id number] capsules Health mg capsule 00:00: 00:00 elimination [...] days ostomy loperamide 2021- No Altered 4mg Q.84791398 Take 2 Lynne (IMODIUM) 2 01-21 bowel [id number] capsules Health mg capsule 00:00: 00:00 elimination [...] days ostomy loperamide 2021- No Altered 4mg Q.[id number] Take 2 Lynne (IMODIUM) 2 01-21 bowel [id number] capsules Health mg capsule 00:00: 00:00 elimination [...] days ostomy loperamide 2021- No Altered 4mg Q.82822135 Take 2 Lynne (IMODIUM) 2 01-21-30 bowel [id number] capsules Health mg capsule 00:00: 00:00 elimination [...] days ostomy loperamide 2021- No Altered 4mg Q.89715516 Take 2 Lynne (IMODIUM) 2 01-21 bowel [id number] capsules Health mg capsule 00:00: 00:00 elimination [...] days ostomy loperamide 2021- No Altered 4mg Q.62849278 Take 2 Lynne (IMODIUM) 2 01-2130 bowel [id number] capsules Health mg capsule 00:00: 00:00 elimination [...] 60 days ostomy loperamide No Altered 4mg Q.83172226 Take 2 Lynne (IMODIUM) 2 01-21 bowel [id number] capsules Health mg capsule 00:00: 00:00 elimination [...] days ostomy loperamide 2021- No Altered 4mg Q.40477879 Take 2 Lynne (IMODIUM) 2 01-21 bowel [id number] capsules Health mg capsule 00:00: 00:00 elimination [...] days ostomy loperamide 2021- No Altered 4mg Q.53540473 Take 2 Lynne (IMODIUM) 2 01-21 bowel [id number] capsules Health mg capsule 00:00: 00:00 elimination [...] days ostomy loperamide 2021- No Altered 4mg Q.53079654 Take 2 Lynne (IMODIUM) 2 01-21 bowel [id number] capsules Health mg capsule 00:00: 00:00 elimination [...] days ostomy loperamide 2021- No Altered 4mg Q.23653923 Take 2 Lynne (IMODIUM) 2 01-21 bowel [id number] capsules Health mg capsule 00:00: 00:00 elimination [...] days ostomy loperamide 2021- No Altered 4mg Q.30010948 Take 2 Lynne (IMODIUM) 2 01-21 bowel [id number] capsules Health mg capsule 00:00: 00:00 elimination [...] 60 days ostomy loperamide No Altered 4mg Q.14162344 Take 2 Lynne (IMODIUM) 2 01-21 bowel [id number] capsules Health mg capsule 00:00: 00:00 elimination [...] days ostomy loperamide 2021- No Altered 4mg Q.88015295 Take 2 Lynne (IMODIUM) 2 01-21 bowel [id number] capsules Health mg capsule 00:00: 00:00 elimination [...] days ostomy loperamide 2021- No Altered 4mg Q.54389557 Take 2 Lynne (IMODIUM) 2 01-21 bowel [id number] capsules Health mg capsule 00:00: 00:00 elimination [...] days ostomy loperamide 2021- No Altered 4mg Q.90562331 Take 2 Lynne (IMODIUM) 2 01-21 bowel [id number] capsules Health mg capsule 00:00: 00:00 elimination [...] days ostomy loperamide 2021- No Altered 4mg Q.41922010 Take 2 Lynne (IMODIUM) 2 01-21 bowel [id number] capsules Health mg capsule 00:00: 00:00 elimination [...] 60 days ostomy loperamide No Altered 4mg Q.25988272 Take 2 Lynne (IMODIUM) 2 01-21-30 bowel [id number] capsules Health mg capsule 00:00: 00:00 elimination [...] days ostomy loperamide 2021- No Altered 4mg Q.62821587 Take 2 Lynne (IMODIUM) 2 01-21-30 bowel [id number] capsules Health mg capsule 00:00: 00:00 elimination [...] days ostomy loperamide 2021- No Altered 4mg Q.07157682 Take 2 Lynne (IMODIUM) 2 01-2130 bowel [id number] capsules Health mg capsule 00:00: 00:00 elimination 3D by mouth 3 00 :00 due to times intestinal daily ostomy (before meals) for 30 days psyllium 2021- No Altered 1{packe Q.45404952 Take 1 Lynne (METAMUCIL) 01-21 bowel t} [id number] Packet by [employer] 6 gram PwPk 00:00: 00:00 elimination 3D mouth 3 00 :00 due to times intestinal daily ostomy (before meals) for 90 days psyllium 2021- No Altered 1{packe Q.73611985 Take 1 Lynne (METAMUCIL) 01-21 bowel t} [id number] Packet by [employer] 6 gram PwPk 00:00: 00:00 elimination 3D mouth 3 00 :00 due to times intestinal daily ostomy (before meals) for 90 days psyllium 2021- No Altered 1{packe Q.62914041 Take 1 Lynne (METAMUCIL) 01-21 bowel t} [id number] Packet by [employer] 6 gram PwPk 00:00: 00:00 elimination 3D mouth 3 00 :00 due to times intestinal daily ostomy (before meals) for 90 days psyllium 2021- No Altered 1{packe Q.07139943 Take 1 Lynne (METAMUCIL) 01-21 bowel t} [id number] Packet by [employer] 6 gram PwPk 00:00: 00:00 elimination 3D mouth 3 00 :00 due to times intestinal daily ostomy (before meals) for 90 days psyllium 2021- No Altered 1{packe Q.47057007 Take 1 Lynne (METAMUCIL) 01-21 bowel t} [id number] Packet by [employer] 6 gram PwPk 00:00: 00:00 elimination 3D mouth 3 00 :00 due to times intestinal daily ostomy (before meals) for 90 days psyllium 2021- No Altered 1{packe Q.97029068 Take 1 Lynne (METAMUCIL) 01-21 bowel t} [id number] Packet by [employer] 6 gram PwPk 00:00: 00:00 elimination 3D mouth 3 00 :00 due to times intestinal daily ostomy (before meals) for 90 days psyllium 2021- No Altered 1{packe Q.14182542 Take 1 Lynne (METAMUCIL) 01-21 bowel t} [id number] Packet by [facility] 6 gram PwPk 00:00: 00:00 elimination 3D mouth 3 00 :00 due to times intestinal daily ostomy (before meals) for 90 days psyllium 2021- No Altered 1{packe Q.70010480 Take 1 Lynne (METAMUCIL) 01-21 bowel t} [id number] Packet by [facility] 6 gram PwPk 00:00: 00:00 elimination 3D mouth 3 00 :00 due to times intestinal daily ostomy (before meals) for 90 days psyllium 2021- No Altered 1{packe Q.41234033 Take 1 Lynne (METAMUCIL) 01-21 bowel t} [id number] Packet by [facility] 6 gram PwPk 00:00: 00:00 elimination 3D mouth 3 00 :00 due to times intestinal daily ostomy (before meals) for 90 days psyllium 2021- No Altered 1{packe Q.86348251 Take 1 Lynne (METAMUCIL) 01-21 bowel t} [id number] Packet by [facility] 6 gram PwPk 00:00: 00:00 elimination 3D mouth 3 00 :00 due to times intestinal daily ostomy (before meals) for 90 days psyllium 2021- No Altered 1{packe Q.24250153 Take 1 Lynne (METAMUCIL) 01-21 bowel t} [id number] Packet by [facility] 6 gram PwPk 00:00: 00:00 elimination 3D mouth 3 00 :00 due to times intestinal daily ostomy (before meals) for 90 days psyllium 2021- No Altered 1{packe Q.65268513 Take 1 Lynne (METAMUCIL) 01-21 bowel t} [id number] Packet by [facility] 6 gram PwPk 00:00: 00:00 elimination 3D mouth 3 00 :00 due to times intestinal daily ostomy (before meals) for 90 days psyllium 2021- No Altered 1{packe Q.38335500 Take 1 Lynne (METAMUCIL) 01-21 bowel t} [id number] Packet by [facility] 6 gram PwPk 00:00: 00:00 elimination 3D mouth 3 00 :00 due to times intestinal daily ostomy (before meals) for 90 days psyllium 2021- No Altered 1{packe Q.71037731 Take 1 Lynne (METAMUCIL) 01-21 bowel t} [id number] Packet by [employer] 6 gram PwPk 00:00: 00:00 elimination 3D mouth 3 00 :00 due to times intestinal daily ostomy (before meals) for 90 days psyllium 2021- No Altered 1{packe Q.17873656 Take 1 Lynne (METAMUCIL) 01-21 bowel t} [id number] Packet by [employer] 6 gram PwPk 00:00: 00:00 elimination 3D mouth 3 00 :00 due to times intestinal daily ostomy (before meals) for 90 days psyllium 2021- No Altered 1{packe Q.49148981 Take 1 Lynne (METAMUCIL) 01-21 bowel t} [id number] Packet by [facility] 6 gram PwPk 00:00: 00:00 elimination 3D mouth 3 00 :00 due to times intestinal daily ostomy (before meals) for 90 days psyllium 2021- No Altered 1{packe Q.13397874 Take 1 Lynne (METAMUCIL) 01-21 bowel t} [id number] Packet by [employer] 6 gram PwPk 00:00: 00:00 elimination 3D mouth 3 00 :00 due to times intestinal daily ostomy (before meals) for 90 days psyllium 2021- No Altered 1{packe Q.18244618 Take 1 Lynne (METAMUCIL) 01-21 bowel t} [id number] Packet by [employer] 6 gram PwPk 00:00: 00:00 elimination 3D mouth 3 00 :00 due to times intestinal daily ostomy (before meals) for 90 days psyllium 2021- No Altered 1{packe Q.29710804 Take 1 Lynne (METAMUCIL) 01-21 bowel t} [id number] Packet by [employer] 6 gram PwPk 00:00: 00:00 elimination 3D mouth 3 00 :00 due to times intestinal daily ostomy (before meals) for 90 days psyllium 2021- No Altered 1{packe Q.39467411 Take 1 Lynne (METAMUCIL) 01-21 bowel t} [id number] Packet by [employer] 6 gram PwPk 00:00: 00:00 elimination 3D mouth 3 00 :00 due to times intestinal daily ostomy (before meals) for 90 days psyllium 2021- No Altered 1{packe Q.04921280 Take 1 Lynne (METAMUCIL) 01-21 bowel t} [id number] Packet by [employer] 6 gram PwPk 00:00: 00:00 elimination 3D mouth 3 00 :00 due to times intestinal daily ostomy (before meals) for 90 days psyllium 2021- No Altered 1{packe Q.11434479 Take 1 Lynne (METAMUCIL) 01-21 bowel t} [id number] Packet by [employer] 6 gram PwPk 00:00: 00:00 elimination 3D mouth 3 00 :00 due to times intestinal daily ostomy (before meals) for 90 days tamsulosin 2021- No Benign .4mg QD Take 1 Momin rris (FLOMAX) 01-12 prostatic capsule by [employer] 0.4 mg 00:00: 00:00 hyperplasia mouth capsule 00 :00 , daily. unspecified Start on whether 01/12/2022. lower urinary tract symptoms present tamsulosin 2021- No Benign .4mg QD Take 1 Momin rris (FLOMAX) 01-12 prostatic capsule by [employer] 0.4 mg 00:00: 00:00 hyperplasia mouth capsule 00 :00 , daily. unspecified Start on whether 01/12/2022. lower urinary tract symptoms present tamsulosin 2021- No Benign .4mg QD Take 1 Momin rris (FLOMAX) 01-12 prostatic capsule by [employer] 0.4 mg 00:00: 00:00 hyperplasia mouth capsule [...] Momin rris (FLOMAX) 01-12-31 prostatic capsule by [facility] 0.4 mg 00:00: 00:00 hyperplasia [...] Momin rris (FLOMAX) 01-12- prostatic capsule by [facility] 0.4 mg 00:00: 00:00 hyperplasia mouth capsule 00 :00 , daily. unspecified Start on whether 01/12/2022. lower urinary tract symptoms present tamsulosin 2021-2021- No Benign .4mg QD Take 1 Momin rris (FLOMAX) 01-12- prostatic capsule by [facility] 0.4 mg 00:00: 00:00 hyperplasia mouth capsule 00 :00 , daily. unspecified Start on whether 01/12/2022. lower urinary tract symptoms present tamsulosin 2021-2021- No Benign .4mg QD Take 1 Momin rris (FLOMAX) 01-12- prostatic capsule by [facility] 0.4 mg 00:00: 00:00 hyperplasia mouth capsule 00 :00 , daily. unspecified Start on whether 01/12/2022. lower urinary tract symptoms present tamsulosin 2021-2021- No Benign .4mg QD Take 1 Momin rris (FLOMAX) 01-12- prostatic capsule by [facility] 0.4 mg 00:00: 00:00 hyperplasia mouth capsule 00 :00 , daily. unspecified Start on whether 01/12/2022. lower urinary tract symptoms present tamsulosin 2021-2021- No Benign .4mg QD Take 1 Momin rris (FLOMAX) 01-12-31 prostatic capsule by [facility] 0.4 mg 00:00: 00:00 hyperplasia mouth capsule 00 :00 , daily. unspecified Start on whether 01/12/2022. lower urinary tract symptoms present tamsulosin 2021-0 2021- No Benign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 Screening for malignant [facility] 00:00:00 neoplasm of colon Medical Ce nter (procedure) [code = 341199485] Future Scheduled 2029-03-23 Screening for malignant [facility] 00:00:00 neoplasm of colon Medical Ce nter (procedure) [code = 648225388] Future Scheduled 2022-08-[address] [...] 00:00:00 neoplasm of colon (procedure) [code = 458740025] Future Scheduled 2020-02-14 Screening for malignant [facility] 00:00:00 neoplasm of colon (procedure) [code = 804430652] Future Scheduled 2020-02-14 Screening for malignant [facility] 00:00:00 neoplasm of colon (procedure) [code = 665371654] Future Scheduled 2020-02-14 Screening for malignant [facility] 00:00:00 neoplasm of colon (procedure) [code = 853394697] Future Scheduled 2020-02-14 Screening for malignant [facility] 00:00:00 neoplasm of colon (procedure) [code = 066155154] Future Scheduled 2020-02-14 Screening for malignant [facility] 00:00:00 neoplasm of colon (procedure) [code = 769384854] Future Scheduled 2020-02-14 Screening for malignant [facility] 00:00:00 neoplasm of colon (procedure) [code = 944783744] Future Scheduled 2020-02-14 Screening for malignant [facility] 00:00:00 neoplasm of colon (procedure) [code = 858088331] Future Scheduled 2020-02-14 Screening for malignant [facility] 00:00:00 neoplasm of colon (procedure) [code = 295279973] Future Scheduled 2020-02-14 Screening for malignant [facility] 00:00:00 neoplasm of colon (procedure) [code = 210722283] Future Scheduled 2020-02-14 Screening for malignant [facility] 00:00:00 neoplasm of colon (procedure) [code = 286622448] Future Scheduled 2020-02-14 Screening for malignant [facility] 00:00:00 neoplasm of colon (procedure) [code = 994714451] Future Scheduled 2020-02-14 Screening for malignant [facility] 00:00:00 neoplasm of colon (procedure) [code = 775874425] Future Scheduled 2020-02-14 Screening for malignant [facility] 00:00:00 neoplasm of colon (procedure) [code = 223973058] Future Scheduled 2020-02-14 Screening for malignant [facility] 00:00:00 neoplasm of colon (procedure) [code = 941871028] Future Scheduled 2020-02-14 Screening for malignant [facility] 00:00:00 neoplasm of colon (procedure) [code = 022579272] Future Scheduled 2020-02-14 Screening for malignant [facility] 00:00:00 neoplasm of colon (procedure) [code = 949668571] Future Scheduled 2020-02-14 Screening for malignant [facility] 00:00:00 neoplasm of colon (procedure) [code = 705356380] Future Scheduled 2020-02-14 Screening for malignant [facility] 00:00:00 neoplasm of colon (procedure) [code = 313356365] Future Scheduled 2020-02-14 Screening for malignant [facility] 00:00:00 neoplasm of colon (procedure) [code = 023921894] Future Scheduled 2020-02-14 Screening for malignant [facility] 00:00:00 neoplasm of colon (procedure) [code = 815163793] Future Scheduled 2020-02-14 SHINGLES VACCINES ([address] [facility] 00:00:00 2) [code = [facility] VACCINES (1 of 2)] Future Scheduled 2020-02-14 Screening for malignant [facility] 00:00:00 neoplasm of colon (procedure) [code = 890538929] Future Scheduled 2020-02-14 SHINGLES VACCINES (1 of [...] [facility] 00:00:00 [code = 50022991] Medical Ce nter Future Scheduled 2005 Lipid panel (procedure) [facility] 00:00:00 [code = 59960976] Medical Ce nter Future Scheduled 2005 Lipid panel (procedure) [facility] 00:00:00 [code = 32297205] Medical Ce nter Future Scheduled 2005 Lipid panel (procedure) [facility] 00:00:00 [code = 24599850] Medical Ce nter Future Scheduled 2005 Lipid panel (procedure) [facility] 00:00:00 [code = 25886920] Medical Ce nter Future Scheduled 2005 Lipid panel (procedure) [facility] 00:00:00 [code = 65128025] Medical Ce nter Future Scheduled 2005 Lipid panel (procedure) [facility] 00:00:00 [code = 67627639] Medical Ce nter Future Scheduled 2005 Lipid panel (procedure) [facility] 00:00:00 [code = 21929347] Medical Ce nter Future Scheduled 2005 Lipid panel (procedure) [facility] 00:00:00 [code = 24749052] Medical Ce nter Future Scheduled 2005 Lipid panel (procedure) [facility] 00:00:00 [code = 66550870] Medical Ce nter Future Scheduled 2005 Lipid panel (procedure) [facility] 00:00:00 [code = 21032696] Medical Ce nter Future Scheduled 2005 Lipid panel (procedure) [facility] 00:00:00 [code = 73090884] Medical Ce nter Future Scheduled 2005 Lipid panel (procedure) [facility] 00:00:00 [code = 38318530] Medical Ce nter Future Scheduled 2005 Lipid panel (procedure) [facility] 00:00:00 [code = 32936528] Medical Ce nter Future Scheduled 2005 Lipid panel (procedure) [facility] 00:00:00 [code = 72937456] Medical Ce nter Future Scheduled 2005 Lipid panel (procedure) [facility] 00:00:00 [code = 06635254] Medical Ce nter Future Scheduled 2005 Lipid panel (procedure) [facility] 00:00:00 [code = 34683621] Medical Ce nter Future Scheduled 2005 Lipid panel (procedure) [facility] 00:00:00 [code = 50679237] Medical Ce nter Future Scheduled 2005 Lipid panel (procedure) [facility] 00:00:00 [code = 65141865] Medical Ce nter Future Scheduled 2005 Lipid panel (procedure) [facility] 00:00:00 [code = 24003782] Medical Ce nter Future Scheduled 2005 Lipid panel (procedure) [facility] 00:00:00 [code = 14502808] Medical Ce nter Future Scheduled 2005 Lipid panel (procedure) [facility] 00:00:00 [code = 90922108] Medical Ce nter Future Scheduled 2005 Lipid panel (procedure) [facility] 00:00:00 [code = 85210918] Medical Ce nter Future Scheduled 2005 Lipid panel (procedure) [facility] 00:00:00 [code = 87053491] Medical Ce nter Future Scheduled 1989 DTAP/TDAP/TD [...] Future Scheduled 1970 COVID-19 Vaccine (#1) [facility] 00:00:00 [code = COVID-19 Vaccine [...] (#1)] Future Scheduled 1970 COVID-19 Vaccine (#1) [facility]:00 [code = COVID-19 [...] = COVID-19 Vaccine (#1)] Future Scheduled 1970 Screening for malignant [facility] 00:00:00 neoplasm of colon Medical Ce nter (procedure) [code = 136026308] Future Scheduled 1970 Screening for malignant [facility] 00:00:00 neoplasm of colon Medical Ce nter (procedure) [code = 868006406] Future Scheduled 1970 Sigmoidoscopy [facility]code = [facility]] Medical [facility] r Future Scheduled 1970 CT Colonography (combo) [facility] 00:00:00 [code = CT Colonography [facility] (combo)] Future Scheduled 1970 Screening for malignant [facility] 00:00:00 neoplasm of colon Medical Ce nter (procedure) [code = 982806131] Future Scheduled 1970 Screening for malignant [facility] 00:00:00 neoplasm of colon Medical Ce nter (procedure) [code = 317483090] Future Scheduled 1970 Sigmoidoscopy [code = [facility]] [facility] Future Scheduled 1970 CT Colonography (combo) [facility] 00:00:00 [code = [facility] Future Scheduled 1970 Screening for malignant [facility] 00:00:00 neoplasm of colon Medical Ce nter (procedure) [code = 649364828] Future Scheduled 1970 Screening for malignant [facility] 00:00:00 neoplasm of colon Medical Ce nter (procedure) [code = 961553517] Future Scheduled 1970 Sigmoidoscopy [code = [facility] S[facility]] Medical Cent[facility] Future Scheduled 1970 CT Colonography (combo) [facility] 00:00:00 [code = CT [facility] ([facility])] Future Scheduled 1970 Screening for malignant [facility] 00:00:00 neoplasm of colon Medical Ce nter (procedure) [code = 493499484] Future Scheduled 1970 Screening for malignant [facility] 00:00:00 neoplasm of colon Medical Ce nter (procedure) [code = 814246888] Future Scheduled 1970 Sigmoidoscopy [code = [facility] S[facility]] [facility] Cent[facility] Future Scheduled 1970 CT Colonography (combo) [facility] 00:00:00 [code = [facility] ([facility])] Future Scheduled 1970 Screening for malignant [facility] 00:00:00 neoplasm of colon Medical Ce nter (procedure) [code = 556604352] Future Scheduled 1970 Screening for malignant [facility] 00:00:00 neoplasm of colon Medical Ce nter (procedure) [code = 463790835] Future Scheduled 1970 Sigmoidoscopy [facility]code = [facility]] [facility] [place] [facility] Future Scheduled 1970 CT Colonography (combo) [facility] 00:00:00 [code = CT Colonography [facility] (combo)] Future Scheduled 1970 Screening for malignant [facility] 00:00:00 neoplasm of colon Medical Ce nter (procedure) [code = 876827472] Future Scheduled 1970 Screening for malignant [facility] 00:00:00 neoplasm of colon Medical Ce nter (procedure) [code = 917690421] Future Scheduled 1970 Sigmoidoscopy [facility]code = [facility]] [facility] [place] [facility] Future Scheduled 1970 CT Colonography (combo) [facility] 00:00:00 [code = CT Colonography [facility] (combo)] Future Scheduled 1970 Screening for malignant [facility] 00:00:00 neoplasm of colon Medical Ce nter (procedure) [code = 962167845] Future Scheduled 1970 Screening for malignant [facility] 00:00:00 neoplasm of colon Medical Ce nter (procedure) [code = 190223785] Future Scheduled 1970 Sigmoidoscopy [facility]code = [facility]] [facility] [place] [facility] Future Scheduled 1970 CT Colonography (combo) [facility] 00:00:00 [code = CT Colonography [facility] (combo)] Future Scheduled 1970 Screening for malignant [facility] 00:00:00 neoplasm of colon Medical Ce nter (procedure) [code = 439660069] Future Scheduled 1970 Screening for malignant [facility] 00:00:00 neoplasm of colon Medical Ce nter (procedure) [code = 013111270] Future Scheduled 1970 Sigmoidoscopy [facility]code [facility]] [facility] [place] [facility] Future Scheduled 1970 CT Colonography (combo) [facility] 00:00:00 [code = CT [facility] ([facility])] Future Scheduled 1970 Screening for malignant [facility] 00:00:00 neoplasm of colon Medical Ce nter (procedure) [code = 293806825] Future Scheduled 1970 Screening for malignant [facility] 00:00:00 neoplasm of colon Medical Ce nter (procedure) [code = 760788252] Future Scheduled 1970 Sigmoidoscopy [facility]code = [facility]] [facility] Cent[facility] Future Scheduled 1970 CT Colonography (combo) [facility] 00:00:00 [code = CT [facility] ([facility])] Future Scheduled 1970 Screening for malignant [facility] 00:00:00 neoplasm of colon Medical Ce nter (procedure) [code = 035785189] Future Scheduled 1970 Screening for malignant [facility] 00:00:00 neoplasm of colon Medical Ce nter (procedure) [code = 671299814] Future Scheduled 1970 Sigmoidoscopy [facility]code = [facility]] [facility] Cent[facility] Future Scheduled 1970 CT Colonography (combo) [facility] 00:00:00 [code = CT [facility] ([facility])] Future Scheduled 1970 Screening for malignant [facility] 00:00:00 neoplasm of colon Medical Ce nter (procedure) [code = 022106114] Future Scheduled 1970 Screening for malignant [facility] 00:00:00 neoplasm of colon Medical Ce nter (procedure) [code = 700694151] Future Scheduled 1970 Sigmoidoscopy [code = [facility] S[facility]] [facility] Cent[facility] Future Scheduled 1970 CT Colonography (combo) [facility] 00:00:00 [code = CT [facility] ([facility])] Future Scheduled 1970 Screening for malignant [facility] 00:00:00 neoplasm of colon Medical Ce nter (procedure) [code = 118742616] Future Scheduled 1970 Screening for malignant [facility] 00:00:00 neoplasm of colon Medical Ce nter (procedure) [code = 048104584] Future Scheduled 1970 Sigmoidoscopy [facility]code = [facility] S[facility]] [facility] Cent[facility] Future Scheduled 1970 CT Colonography (combo) [facility] 00:00:00 [code = CT [facility] ([facility])] Future Scheduled 1970 Screening for malignant [facility] 00:00:00 neoplasm of colon Medical Ce nter (procedure) [code = 110121101] Future Scheduled 1970 Screening for malignant [facility] 00:00:00 neoplasm of colon Medical Ce nter (procedure) [code = 041505794] Future Scheduled 1970 Sigmoidoscopy [code = [facility] S[facility]oscopy] [facility] [place] [facility] Future Scheduled 1970 CT Colonography (combo) [facility] 00:00:00 [code = [facility])] Future Scheduled 1970 Screening for malignant [facility] 00:00:00 neoplasm of colon Medical Ce nter (procedure) [code = 073136526] Future Scheduled 1970 Screening for malignant [facility] 00:00:00 neoplasm of colon Medical Ce nter (procedure) [code = 881460607] Future Scheduled 1970 Sigmoidoscopy [code = [facility] S[facility]oscopy] [facility] [place] [facility] Future Scheduled 1970 CT Colonography (combo) [facility] 00:00:00 [code = CT [facility])] Future Scheduled 1970 Screening for malignant [facility] 00:00:00 neoplasm of colon Medical Ce nter (procedure) [code = 268679505] Future Scheduled 1970 Screening for malignant [facility] 00:00:00 neoplasm of colon Medical Ce nter (procedure) [code = 317859783] Future Scheduled 1970 Sigmoidoscopy [code = [facility] S[facility]oscopy] [facility] Cent[facility] Future Scheduled 1970 CT Colonography (combo) [facility] 00:00:00 [code = CT [facility] ([facility])] Future Scheduled 1970 Screening for malignant [facility] 00:00:00 neoplasm of colon Medical Ce nter (procedure) [code = 678655714] Future Scheduled 1970 Screening for malignant [facility] 00:00:00 neoplasm of colon Medical Ce nter (procedure) [code = 176798003] Future Scheduled 1970 Sigmoidoscopy [code = [facility] S[facility]oscopy] [facility] Cent[facility] Future Scheduled 1970 CT Colonography (combo) [facility] 00:00:00 [code = CT [facility] ([facility])] Future Scheduled 1970 Screening for malignant [facility] 00:00:00 neoplasm of colon Medical Ce nter (procedure) [code = 151446938] Future Scheduled 1970 Screening for malignant [facility] 00:00:00 neoplasm of colon Medical Ce nter (procedure) [code = 259443883] Future Scheduled 1970 Sigmoidoscopy [code = [facility] S[facility]] [facility] Cent[facility] Future Scheduled 1970 CT Colonography (combo) [facility] 00:00:00 [code = CT [facility])] Future Scheduled 1970 Screening for malignant [facility] 00:00:00 neoplasm of colon Medical Ce nter (procedure) [code = 038726236] Future Scheduled 1970 Screening for malignant [facility] 00:00:00 neoplasm of colon Medical Ce nter (procedure) [code = 812336397] Future Scheduled 1970 Sigmoidoscopy [code = [facility]] [facility] Future Scheduled 1970 CT Colonography (combo) [facility] 00:00:00 [code = [facility] ([facility])] Future Scheduled 1970 Screening for malignant [facility] 00:00:00 neoplasm of colon Medical Ce nter (procedure) [code = 107901187] Future Scheduled 1970 Screening for malignant [facility] 00:00:00 neoplasm of colon Medical Ce nter (procedure) [code = 443097268] Future Scheduled 1970 Sigmoidoscopy [code = [facility] S[facility]oscopy] [facility] Future Scheduled 1970 CT Colonography (combo) [facility] 00:00:00 [code = CT [facility])] Future Scheduled 1970 Screening for malignant [facility] 00:00:00 neoplasm of colon Medical Ce nter (procedure) [code = 199351611] Future Scheduled 1970 Screening for malignant [facility] 00:00:00 neoplasm of colon Medical Ce nter (procedure) [code = 041270449] Future Scheduled 1970 Sigmoidoscopy [code = [facility]] [facility] Future Scheduled 1970 CT Colonography (combo) [facility] 00:00:00 [code = [facility])] Future Scheduled 1970 Screening for malignant [facility] 00:00:00 neoplasm of colon Medical Ce nter (procedure) [code = 935662731] Future Scheduled 1970 Screening for malignant [facility] 00:00:00 neoplasm of colon Medical Ce nter (procedure) [code = 696776652] Future Scheduled 1970 Sigmoidoscopy [code = [facility] S[facility]oscopy] [facility] Future Scheduled 1970 CT Colonography (combo) [facility] 00:00:00 [code = CT [facility])] Future Scheduled 1970 Screening for malignant [facility] 00:00:00 neoplasm of colon Medical Ce nter (procedure) [code = 960493030] Future Scheduled 1970 Screening for malignant [facility] 00:00:00 neoplasm of colon Medical Ce nter (procedure) [code = 415121326] Future Scheduled 1970 Sigmoidoscopy [code = [facility] [...] colon Medical Ce nter (procedure) [code = 479975324] Future Scheduled 1970 Screening for malignant [facility] 00:00:00 neoplasm of colon Medical Ce nter (procedure) [code = 128660295] Future Scheduled 1970 Sigmoidoscopy [code [facility] S[facility]] Medical Cente r Encounters Start End Encounter Admission Attending Care Care Encounter Source Date/Time Date/Time Type Type Clinicians Facility Department ID 2020-02-23 Inpatient [facility] [id number] [facility] 18:42:00 [facility] 2020-02-17 Inpatient EM Avtar, HCAPM MAS [id number] [facility] 00:22:00 Oladipo 75 [facility] 2020-01-05 Inpatient UR Eliazar, HCAPM MEDI.01 [id number] [facility] 20:23:00 Mark 40 [facility] 2019-12-13 Inpatient HCAMN JULIA [id number] [facility] 17:52:00 47 [facility] 2022-03-29 2022-03-29 Emergency EM White, HCACL AERS [id number] [facility] 14:26:00 16:45:00 Steve 28 [facility] 2022-03-29 2022-03-29 Emergency EM White, HCACL HCACL [id number] [facility] 14:26:00 16:45:00 Steve Pollock [facility] 2022-03-25 2022-03-26 Inpatient E [facility] MED [id number] BL 13:38:00 10:16:00 , YESSI 2022-03-15 2022-03-18 Emergency E RADHA [facility] MED [id number] [facility] 13:36:00 18:59:00 NELSON 2022-03-13 2022-03-13 Emergency [facility] [id number] [place] 15:33:00 20:25:00 [facility] 2022-03-13 2022-03-13 Emergency [facility] [id number] [place] 15:33:00 20:25:00 [facility] 2022-03-13 2022-03-13 Outpatient RONALD, [facility] [id number] [place] 00:00:00 00:00:00 [facility] 2022-03-06 2022-03-09 Inpatient ER LEÓN EARL [facility] Emergency [id number] [facility] 12:16:00 12:55:00 2022-03-06 2022-03-09 Hospital ER Aryan Tello [facility] 1 [id number] [facility] 12:16:00 12:55:00 Encounter Dee Dee Montalvo, Pao Ramos AnyaLeón Colin 2022-03-06 2022-03-09 [facility] [id number] [facility] 12:16:00 12:55:00 Encounter Dee Dee Montalvo, Romie Guadarr[facility] 2022-03-06 2022-03-06 Outpatient [facility] [id number] [facility] 00:00:00 23:59:00 Jennifer funk of Medicin e 2022-03-06 2022-03-[address] [facility] [id number] 00:00:00 00:00:00 [facility] 2022-03-06 2022-03-06 Travel [facility] [id number] [facility] 00:00[facility]00 00:00:00 [facility] 2022-03-06 2022-03-[address] [facility] [id number] 00:00:00 00:00:00 [facility] 2022-03-06 2022-03-06 Travel [facility] [id number] [facility] 00:00:00 00:00:00 [facility] 2022-02-18 2022-02-20 Emergency [facility] [id number] Maged 13:58:00 11:55:00 Bernabe Calvert Ashish D Cavazos, Roberto H 2022-02-18 2022-02-20 Emergency [facility] [id number] Maged 13:58:00 11:55:00 Bernabe Calvert Ashish D Cavazos, Roberto H 2022-02-18 2022-02-18 [facility] [id number] [place] 15:19:05 15:23:18 [facility] 2022-02-18 2022-02-18 Outpatient 1 TEJAS [facility] [id number] [place] 13:58:00 13:58:00 [facility] 2022-02-18 2022-02-18 Outpatient DENIZ [facility] [id number] [place] 00:00:00 00:00:00 , OSCAR blanchard 2022-02-07 2022-02-11 [facility] [id number] [place] 13:40:00 13:22:00 [facility] [place] 2022-02-07 2022-02-11 [facility] [id number] [place] 13:40:00 13:22:00 Encounter [place] [facility] 2022-02-07 2022-02-07 Outpatient 1 MEGHAN ISLAS [facility] [id number] [place] 13:40:00 13:40:00 [facility] 2022-01-30 2022-01-30 Emergency SEAN Pacheco, [facility] [id number] [facility] 17:02:00 18:29:00 Dwain 53 [facility] [place] 2022-01-30 2022-01-30 [id number] 17:02:00 18:29:00 Dwain [id number] [facility] 2022-01-22 2022-01-22 Emergency [facility] [id number] [place] 17:24:00 20:39:00 [facility] 2022-01-22 2022-01-22 Emergency [facility] [id number] [place] 17:24:00 20:39:00 [facility] 2022-01-16 2022-01-21 Emergency Raymon Martin [facility] [id number] [place] 11:04:00 18:08:00 Karin Bassett Julian C Agrawal Steve P 2022-01-16 2022-01-21 Emergency Raymon Martin [facility] [id number] [place] 11:04:00 18:08:00 Karin Bassett Julian C Agrawal, Steve P 2022-01-19 2022-01-19 Outpatient [facility] [id number] [place] 12:34:08 13:29:31 [facility] 2022-01-16 2022-01-16 Outpatient [facility] [id number] [place] 19:42:28 20:01:28 [facility] 2022-01-16 2022-01-16 Outpatient 1 DANYELLE [facility] [id number] [place] 11:04:00 11:04:00 KARIN blanchard 2022-01-10 2022-01-11 Emergency Bert Reed [facility] [id number] [place] 10:58:00 11:20:00 [facility] 2022-01-11 [facility] [id number] [place] 10:58:00 11:20:00 [facility] 2022-01-10 2022-01-10 Outpatient 1 [facility] [id number] [place] 10:58:00 10:58:00 [facility] 2022-01-08 2022-01-09 Emergency [facility] [id number] [place] 17:57:00 02:50:00 [facility] 2022-01-08 2022-01-09 Emergency [facility] [id number] [place] 17:57:00 02:50:00 [facility] 2022-01-08 2022-01-08 Emergency [facility] [id number] [place] 21:40:34 21:50:19 [facility] 2021-09-23 2021-09-23 Emergency [id number] [facility] 19:35:00 21:10:[address] [place] [address] 2021-09-13 2021-09-13 Emergency EM [facility] [id number] [facility] 14:57:00 16:37:00 06 [facility] 2021-07-27 2021-07-27 Emergency EM [facility]ateryna[id number] [facility] 10:15:00 12:36:00 Juan Jose 17 [facility] 2021-07-22 2021-07-22 Emergency EM Marcelina, [facility] AERS [id number] [facility] 04:25:00 08:20:00 Tarrell 74 [facility] 2021-06-27 2021-06-27 Emergency EM Bridgett, HCACL AERS [id number] [facility] 15:31:00 17:37:00 Steve 17 [facility] 2021-04-28 2021-05-01 Inpatient SEAN Leonard HCACL MAS [id number] [facility] 21:05:00 14:18:00 Christopher 03 Mehran liao [facility] 2020-02-24 2020-02-24 Outpatient Eliazar, HCACL LABO [id number] [facility] 07:51:00 07:51:00 Mark 96 [facility] 2020-02-18 2020-02-18 Outpatient Avtar HCACL LABO [id number] [facility] 00:26:00 00:26:00 Oladipo 05 [facility] 2020-01-05 2020-01-05 Outpatient Eliazar HCACL [facility] [id number] [facility] 23:52:00 23:52:00 [facility] 24 [facility] 2017-11-02 2017-11-02 Emergency E [facility] MED [id number] 08:33:00 08:33:00 [facility] 2017-08-05 2017-08-05 Outpatient [facility] [id number] [place] 00:00:00 00:00:00 [facility] 2017-07-28 2017-07-28 Outpatient [facility] [id number] [place] 00:00:00 00:00:00 [facility] 2017-06-24 2017-06-24 Outpatient [facility] [id number] [place] 00:00:00 00:00:00 [facility] 2017-06-22 2017-06-22 Emergency [facility] [id number] [place] 21:37:29 21:37:29 [facility] 2017-06-22 2017-06-22 Emergency [facility] MED [id number] [place] 21:06:00 21:06:00 [facility] 2017-06-22 2017-06-22 Outpatient [facility] [id number] [place] 10:02:31 10:02:31 [facility] 2017-06-09 2017-06-09 Outpatient [facility] [id number] [place] 00:00:00 00:00:00 [facility] 2017-06-09 2017-06-09 Outpatient [facility] [id number] [place] 00:00:00 00:00:00 [facility] 2017-05-08 2017-05-08 Emergency [facility] MED [id number] [place] 01:04:44 01:04:44 Health 2017-05-05 2017-05-05 Emergency E [facility] MED [id number] 08:11:00 08:11:00 [facility] 2017-04-15 2017-04-15 Emergency E [facility] MED [id number] 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 BASIC METABOLIC [id number] 14:56:00 Test Item Value Reference Range Interpretation [...] MG/DL 70-110 N - XR CHEST 1 [id number] 00:00:00 [facility]: MARIA ISABEL JOSEPH : 1970 Sex: M FAX: Steve Urias MD [phone] [place]: [place] St: REG Name: MARIA ISABEL JOSEPH FSED : 1970 Age/S: 52/M [address] [facility] Unit #: [id number] Loc: [place] [address] Phys: Steve Urias MD Acct: [id number] Dis Date: Status: REG ER PHONE #: Exam Date: 03/29/2022 1507 FAX #: Reason: Weakness EXAMS: CPT CODE: [id number] XR CHEST 1 V 08649 PROCEDURE INFORMATION: Exam: XR Chest Exam date [...] 03/29/2022 (1531) PAGE 1 Signed ReportHEPATIC FUNCTION [id number] 06:45:03 Test Item Value Reference Range Interpretation [...] (test code = 13 U/L 6-55 347) [employer]er ID Philipp HOOD WBASIC METABOLIC [id number] 06:45:02 Test Item Value Reference Range Interpretation [...] S NOT APPLICABLE FOR DIALYSIS PATIEN TS. [employer] Loader ID Philipp HOOD WCBC W/PLT COUNT & AUTO [id number] 06:26:54 Test Item Value Reference Range Interpretation [...] (BEAKER) (test code = 2801) U/S, RENAL, [id number] 19:23:00Reason for exam:->[facility] 1970 Sex: MFINAL [...] SARS-Co V-2 (test code = target nucleic 99103-3) acids are not detected in thi s [...] om SARS-CoV-2 [facility] s suspected of COVID-19 [...] revoked sooner. Fact Sheet for Healthcare Providers: https://www.[place]/Documents/Xp ert%20Xpress%20SAR S%20CoV-2/Fact%20S heets/302-3802%20S ARS-COV-2%20HEALTH CARE%20PROVIDERS%2 0FACT%20SHEET.pdf Fact Sheet for Healthcare Patients: https://www.[place]/Documents/Xp ert%20Xpress%20SAR S%20CoV-2/Fact%20S heets/302-3801%20S ARS-COV-2%20PATIEN T%20FACT%20SHEET.p df Lab Interpretation Normal (test code = 95102-1) [facility]2022-03-06 19:17:07 Test Item Value Reference Interpretation Comments Range SARS-COV2/RT-PCR Negative Negative The SARS-Co V-2 (test code = target nucleic 02887-1) acids are not detected in thi s [...] revoked sooner. Fact Sheet for Healthcare Providers: https://www.[place]/Documents/Xp ert%20Xpress%20SAR S%20CoV-2/Fact%20S heets/302-3802%20S ARS-COV-2%20HEALTH CARE%20PROVIDERS%2 0FACT%20SHEET.pdf Fact Sheet for Healthcare Patients: https://www.[place]/Documents/Xp ert%20Xpress%20SAR S%20CoV-2/Fact%20S heets/302-3801%20S ARS-COV-2%20PATIEN T%20FACT%20SHEET.p df Lab Interpretation Normal (test code = 52882-5) [facility] (Asymptomatic ONLY)2022-03-06 19:17:07 Test Item Value Reference Interpretation Comments Range SARS-COV2/RT-PCR Negative Negative The SARS-Co V-2 (test code = target nucleic 66946-8) acids are not detected in thi s [...] revoked sooner. Fact Sheet for Healthcare Providers: https://www.[place]/Documents/Xp ert%20Xpress%20SAR S%20CoV-2/Fact%20S heets/302-3802%20S ARS-COV-2%20HEALTH CARE%20PROVIDERS%2 0FACT%20SHEET.pdf Fact Sheet for Healthcare Patients: https://www.[place]/Documents/Xp ert%20Xpress%20SAR S%20CoV-2/Fact%20S heets/302-3801%20S ARS-COV-2%20PATIEN T%20FACT%20SHEET.p df Lab Interpretation Normal (test code = 40040-2) [facility]Asymptomatic ONLY)2022-03-06 19:17:07 Test Item Value Reference Interpretation Comments Range SARS-COV2/RT-PCR Negative Negative The SARS-Co V-2 (test code = target nucleic 76668-0) acids are not detected in thi s [...] revoked sooner. Fact Sheet for Healthcare Providers: https://www.[place]/Documents/Xp ert%20Xpress%20SAR S%20CoV-2/Fact%20S heets/302-3802%20S ARS-COV-2%20HEALTH CARE%20PROVIDERS%2 0FACT%20SHEET.pdf Fact Sheet for Healthcare Patients: https://www.[place]/Documents/Xp ert%20Xpress%20SAR S%20CoV-2/Fact%20S heets/302-3801%20S ARS-COV-2%20PATIEN T%20FACT%20SHEET.p df Lab Interpretation Normal (test code = 39977-8) [facility]Asymptomatic ONLY)2022-03-06 19:17:07 Test Item Value Reference Interpretation Comments Range SARS-COV2/RT-PCR Negative Negative The SARS-Co V-2 (test code = target nucleic 55029-2) acids are not detected in thi s [...] revoked sooner. Fact Sheet for Healthcare Providers: https://www.[place]/Documents/Xp ert%20Xpress%20SAR S%20CoV-2/Fact%20S heets/302-3802%20S ARS-COV-2%20HEALTH CARE%20PROVIDERS%2 0FACT%20SHEET.pdf Fact Sheet for Healthcare Patients: https://www.[place]/Documents/Xp ert%20Xpress%20SAR S%20CoV-2/Fact%20S heets/302-3801%20S ARS-COV-2%20PATIEN T%20FACT%20SHEET.p df Lab Interpretation Normal (test code = 57163-3) [facility] (Asymptomatic ONLY)2022-03-06 19:17:07 Test Item Value Reference Interpretation Comments Range SARS-COV2/RT-PCR Negative Negative The SARS-Co V-2 (test code = target nucleic 90211-8) acids are not detected in thi s [...] revoked sooner. Fact Sheet for Healthcare Providers: https://www.[place]/Documents/Xp ert%20Xpress%20SAR S%20CoV-2/Fact%20S heets/302-3802%20S ARS-COV-2%20HEALTH CARE%20PROVIDERS%2 0FACT%20SHEET.pdf Fact Sheet for Healthcare Patients: https://www.[place]/Documents/Xp ert%20Xpress%20SAR S%20CoV-2/Fact%20S heets/302-3801%20S ARS-COV-2%20PATIEN T%20FACT%20SHEET.p df Lab Interpretation Normal (test code = 76365-7) [facility] (Asymptomatic ONLY)2022-03-06 19:17:07 Test Item Value Reference Interpretation Comments Range SARS-COV2/RT-PCR Negative Negative The SARS-Co V-2 (test code = target nucleic 64817-9) acids are not detected in thi s [...] revoked sooner. Fact Sheet for Healthcare Providers: https://www.[place]/Documents/Xp ert%20Xpress%20SAR S%20CoV-2/Fact%20S heets/3023802%20S ARS-COV-2%20HEALTH CARE%20PROVIDERS%2 0FACT%20SHEET.pdf Fact Sheet for Healthcare Patients: https://www.[place]/Documents/Xp ert%20Xpress%20SAR S%20CoV-2/Fact%20S heets/302-3801%20S ARS-COV-2%20PATIEN T%20FACT%20SHEET.p df Lab Interpretation Normal (test code = 36894-0) [facility] (Asymptomatic ONLY)2022-03-06 19:17:07 Test Item Value Reference Interpretation Comments Range SARS-COV2/RT-PCR Negative Negative The SARS-Co V-2 (test code = target nucleic 68168-5) acids are not detected in thi s [...] revoked sooner. Fact Sheet for Healthcare Providers: https://www.[place]/Documents/Xp ert%20Xpress%20SAR S%20CoV-2/Fact%20S heets/302-3802%20S ARS-COV-2%20HEALTH CARE%20PROVIDERS%2 0FACT%20SHEET.pdf Fact Sheet for Healthcare Patients: https://www.[place]/Documents/Xp ert%20Xpress%20SAR S%20CoV-2/Fact%20S heets/302-3801%20S ARS-COV-2%20PATIEN T%20FACT%20SHEET.p df Lab Interpretation Normal (test code = 28351-1) [facility] (Asymptomatic ONLY)2022-03-06 19:17:07 Test Item Value Reference Interpretation Comments Range SARS-COV2/RT-PCR Negative Negative The SARS-Co V-2 (test code = target nucleic 20426-2) acids are not detected in thi s [...] revoked sooner. Fact Sheet for Healthcare Providers: https://www.[place]/Documents/Xp ert%20Xpress%20SAR S%20CoV-2/Fact%20S heets/302-3802%20S ARS-COV-2%20HEALTH CARE%20PROVIDERS%2 0FACT%20SHEET.pdf Fact Sheet for Healthcare Patients: https://www.[place]/Documents/Xp ert%20Xpress%20SAR S%20CoV-2/Fact%20S heets/302-3801%20S ARS-COV-2%20PATIEN T%20FACT%20SHEET.p df Lab Interpretation Normal (test code = 23221-5) [facility] (Asymptomatic ONLY)2022-03-06 19:17:07 Test Item Value Reference Interpretation Comments Range SARS-COV2/RT-PCR Negative Negative The SARS-Co V-2 (test code = target nucleic 26713-4) acids are not detected in thi s [...] revoked sooner. Fact Sheet for Healthcare Providers: https://www.[place]/Documents/Xp ert%20Xpress%20SAR S%20CoV-2/Fact%20S heets/3023802%20S ARS-COV-2%20HEALTH CARE%20PROVIDERS%2 0FACT%20SHEET.pdf Fact Sheet for Healthcare Patients: https://www.[place]/Documents/Xp ert%20Xpress%20SAR S%20CoV-2/Fact%20S heets/3023801%20S ARS-COV-2%20PATIEN T%20FACT%20SHEET.p df Lab Interpretation Normal (test code = 73818-4) [facility] (Asymptomatic ONLY)2022-03-06 19:17:07 Test Item Value Reference Interpretation Comments Range SARS-COV2/RT-PCR Negative Negative The SARS-Co V-2 (test code = target nucleic 42053-2) acids are not detected in thi s [...] revoked sooner. Fact Sheet for Healthcare Providers: https://www.[place]/Documents/Xp ert%20Xpress%20SAR S%20CoV-2/Fact%20S heets/302-3802%20S ARS-COV-2%20HEALTH CARE%20PROVIDERS%2 0FACT%20SHEET.pdf Fact Sheet for Healthcare Patients: https://www.[place]/Documents/Xp ert%20Xpress%20SAR S%20CoV-2/Fact%20S heets/302-3801%20S ARS-COV-2%20PATIEN T%20FACT%20SHEET.p df Lab Interpretation Normal (test code = 58087-9) [facility] (Asymptomatic ONLY)2022-03-06 19:17:07 Test Item Value Reference Interpretation Comments Range SARS-COV2/RT-PCR Negative Negative The SARS-Co V-2 (test code = target nucleic 52206-5) acids are not detected in thi s [...] revoked sooner. Fact Sheet for Healthcare Providers: https://www.[place]/Documents/Xp ert%20Xpress%20SAR S%20CoV-2/Fact%20S heets/302-3802%20S ARS-COV-2%20HEALTH CARE%20PROVIDERS%2 0FACT%20SHEET.pdf Fact Sheet for Healthcare Patients: https://www.[place]/Documents/Xp ert%20Xpress%20SAR S%20CoV-2/Fact%20S heets/302-3801%20S ARS-COV-2%20PATIEN T%20FACT%20SHEET.p df Lab Interpretation Normal (test code = 22340-0) [facility]As[facility]omatic ONLY)2022-03-06 19:17:07 Test Item Value Reference Interpretation Comments Range SARS-COV2/RT-PCR Negative Negative The SARS-Co V-2 (test code = target nucleic 70288-9) acids are not detected in thi s [...] revoked sooner. Fact Sheet for Healthcare Providers: https://www.[place]/Documents/Xp ert%20Xpress%20SAR S%20CoV-2/Fact%20S heets/302-3802%20S ARS-COV-2%20HEALTH CARE%20PROVIDERS%2 0FACT%20SHEET.pdf Fact Sheet for Healthcare Patients: https://www.[place]/Documents/Xp ert%20Xpress%20SAR S%20CoV-2/Fact%20S heets/302-3801%20S ARS-COV-2%20PATIEN T%20FACT%20SHEET.p df Lab Interpretation Normal (test code = 30140-6) [facility]Asymptomatic ONLY)2022-03-06 19:17:07 Test Item Value Reference Interpretation Comments Range SARS-COV2/RT-PCR Negative Negative The SARS-Co V-2 (test code = target nucleic 15291-0) acids are not detected in thi s [...] revoked sooner. Fact Sheet for Healthcare Providers: https://www.[place]/Documents/Xp ert%20Xpress%20SAR S%20CoV-2/Fact%20S heets/302-3802%20S ARS-COV-2%20HEALTH CARE%20PROVIDERS%2 0FACT%20SHEET.pdf Fact Sheet for Healthcare Patients: https://www.[place]/Documents/Xp ert%20Xpress%20SAR S%20CoV-2/Fact%20S heets/302-3801%20S ARS-COV-2%20PATIEN T%20FACT%20SHEET.p df Lab Interpretation Normal (test code = 50710-5) [facility]As[facility]omatic ONLY)2022-03-06 19:17:07 Test Item Value Reference Interpretation Comments Range SARS-COV2/RT-PCR Negative Negative The SARS-Co V-2 (test code = target nucleic 92367-4) acids are not detected in thi s [...] revoked sooner. Fact Sheet for Healthcare Providers: https://www.[place]/Documents/Xp ert%20Xpress%20SAR S%20CoV-2/Fact%20S heets/302-3802%20S ARS-COV-2%20HEALTH CARE%20PROVIDERS%2 0FACT%20SHEET.pdf Fact Sheet for Healthcare Patients: https://www.[place]/Documents/Xp ert%20Xpress%20SAR S%20CoV-2/Fact%20S heets/302-3801%20S ARS-COV-2%20PATIEN T%20FACT%20SHEET.p df Lab Interpretation Normal (test code = 58745-1) [facility]As[facility]omatic ONLY)2022-03-06 19:17:07 Test Item Value Reference Interpretation Comments Range SARS-COV2/RT-PCR Negative Negative The SARS-Co V-2 (test code = target nucleic 51839-5) acids are not detected in thi s [...] revoked sooner. Fact Sheet for Healthcare Providers: https://www.[place]/Documents/Xp ert%20Xpress%20SAR S%20CoV-2/Fact%20S heets/302-3802%20S ARS-COV-2%20HEALTH CARE%20PROVIDERS%2 0FACT%20SHEET.pdf Fact Sheet for Healthcare Patients: https://www[employer]/Documents/Xp ert%20Xpress%20SAR S%20CoV-2/Fact%20S heets/302-3801%20S ARS-COV-2%20PATIEN T%20FACT%20SHEET.p df Lab Interpretation Normal (test code = 91034-2) [facility]Asymptomatic ONLY)2022-03-06 19:17:07 Test Item Value Reference Interpretation Comments Range SARS-COV2/RT-PCR Negative Negative The SARS-Co V-2 (test code = target nucleic 95776-6) acids are not detected in thi s [...] revoked sooner. Fact Sheet for Healthcare Providers: https://www.[place]/Documents/Xp ert%20Xpress%20SAR S%20CoV-2/Fact%20S heets/302-3802%20S ARS-COV-2%20HEALTH CARE%20PROVIDERS%2 0FACT%20SHEET.pdf Fact Sheet for Healthcare Patients: https://www.[place]/Documents/Xp ert%20Xpress%20SAR S%20CoV-2/Fact%20S heets/302-3801%20S ARS-COV-2%20PATIEN T%20FACT%20SHEET.p df Lab Interpretation Normal (test code = 00546-2) [facility]Asymptomatic ONLY)2022-03-06 19:17:07 Test Item Value Reference Interpretation Comments Range SARS-COV2/RT-PCR Negative Negative The SARS-Co V-2 (test code = target nucleic 49920-7) acids are not detected in thi s [...] revoked sooner. Fact Sheet for Healthcare Providers: https://www.[place]/Documents/Xp ert%20Xpress%20SAR S%20CoV-2/Fact%20S heets/302-3802%20S ARS-COV-2%20HEALTH CARE%20PROVIDERS%2 0FACT%20SHEET.pdf Fact Sheet for Healthcare Patients: https://www.[place]/Documents/Xp ert%20Xpress%20SAR S%20CoV-2/Fact%20S heets/302-3801%20S ARS-COV-2%20PATIEN T%20FACT%20SHEET.p df Lab Interpretation Normal (test code = 94431-6) [facility]omatic ONLY[facility]2022-03-06 19:17:07 Test Item Value Reference Interpretation Comments Range SARS-COV2/RT-PCR Negative Negative The SARS-Co V-2 (test code = target nucleic 48086-5) acids are not detected in thi s [...] revoked sooner. Fact Sheet for Healthcare Providers: https://www.[place]/Documents/Xp ert%20Xpress%20SAR S%20CoV-2/Fact%20S heets/302-3802%20S ARS-COV-2%20HEALTH CARE%20PROVIDERS%2 0FACT%20SHEET.pdf Fact Sheet for Healthcare Patients: https://www.[place]/Documents/Xp ert%20Xpress%20SAR S%20CoV-2/Fact%20S heets/302-3801%20S ARS-COV-2%20PATIEN T%20FACT%20SHEET.p df Lab Interpretation Normal (test code = 59598-0) [facility]22-[facility]-06 19:17:07 Test Item Value Reference Interpretation Comments Range SARS-COV2/RT-PCR Negative Negative The SARS-Co V-2 (test code = target nucleic 89261-5) acids are not detected in thi s [...] revoked sooner. Fact Sheet for Healthcare Providers: https://www.[employer]/Documents/Xp ert%20Xpress%20SAR S%20CoV-2/Fact%20S heets/302-3802%20S ARS-COV-2%20HEALTH CARE%20PROVIDERS%2 0FACT%20SHEET.pdf Fact Sheet for Healthcare Patients: https://www.[employer] [place]/Documents/Xp ert%20Xpress%20SAR S%20CoV-2/Fact%20S heets/302-3801%20S ARS-COV-2%20PATIEN T%20FACT%20SHEET.p df Lab Interpretation Normal (test code = 40819-9) [facility]omatic [facility]2022-03-06 19:17:07 Test Item Value Reference Interpretation Comments Range SARS-COV2/RT-PCR Negative Negative The SARS-Co V-2 (test code = target nucleic 32355-8) acids are not detected in thi s [...] revoked sooner. Fact Sheet for Healthcare Providers: https://www.[employer] [place]/Documents/Xp ert%20Xpress%20SAR S%20CoV-2/Fact%20S heets/302-3802%20S ARS-COV-2%20HEALTH CARE%20PROVIDERS%2 0FACT%20SHEET.pdf Fact Sheet for Healthcare Patients: https://www.[employer]/Documents/Xp ert%20Xpress%20SAR S%20CoV-2/Fact%20S heets/302-3801%20S ARS-COV-2%20PATIEN T%20FACT%20SHEET.p df Lab Interpretation Normal (test code = 92126-7) [facility]2022-03-06 19:17:07 Test Item Value Reference Interpretation Comments Range SARS-COV2/RT-PCR Negative Negative The SARS-Co V-2 (test code = target nucleic 01174-9) acids are not detected in thi s [...] revoked sooner. Fact Sheet for Healthcare Providers: https://www.[employer]/Documents/Xp ert%20Xpress%20SAR S%20CoV-2/Fact%20S heets/302-3802%20S ARS-COV-2%20HEALTH CARE%20PROVIDERS%2 0FACT%20SHEET.pdf Fact Sheet for Healthcare Patients: https://www.[employer]/Documents/Xp ert%20Xpress%20SAR S%20CoV-2/Fact%20S heets/302-3801%20S ARS-COV-2%20PATIEN T%20FACT%20SHEET.p df Lab Interpretation Normal (test code = 81213-2) [facility]2022-03-06 19:17:07 Test Item Value Reference Interpretation Comments Range SARS-COV2/RT-PCR Negative Negative The SARS-Co V-2 (test code = target nucleic 97311-9) acids are not detected in thi s [...] revoked sooner. Fact Sheet for Healthcare Providers: https://www.[place]/Documents/Xp ert%20Xpress%20SAR S%20CoV-2/Fact%20S heets/302-3802%20S ARS-COV-2%20HEALTH CARE%20PROVIDERS%2 0FACT%20SHEET.pdf Fact Sheet for Healthcare Patients: https://www.[place]/Documents/Xp ert%20Xpress%20SAR S%20CoV-2/Fact%20S heets/302-3801%20S ARS-COV-2%20PATIEN T%20FACT%20SHEET.p df Lab Interpretation Normal (test code = 49001-4) [facility]22-03-06 19:17:07 Test Item Value Reference Range Interpretation Comments SARS-COV2/RT-PCR Negative Negative The SARS-Co V-2 target (test code = nucleic acids a re not 1971056) detected in thi s specimen. Negative result [...] revoked sooner. Fact Sheet for Healthcare Providers: https://www.[employer]/Documents/Xpert%20Xpress%20SARS%20CoV-2/Fact%20Sheets/302-3802%27YPHF-XIR-0%20 HEALTHCARE%20PROVIDERS%20FACT%20SHEET.pdf Fact Sheet for Healthcare Patients: https://www.[employer]/Documents/Xpert%20Xp ress%20SARS%20CoV-2/Fact%20Sheets/3023801%11WXMX-IXF-2%20PATIENT%20FACT%20SHEET .pdfCREATINE KINASE (CK)2022-03-06 16:19:14 Test Item Value Reference Range Interpretation Comments CREATINE KINASE TOTAL (BEAKER) (test 141 U/L 29-200 code = 380) [facility] ID - BST4, [id number] 15:13:16 Test Item Value Reference Range Interpretation Comments FREE T4 (BEAKER) (test code = 655) 0.95 ng/dL 0.70-1.48 [facility] ID - BSTSH/FREE T4 IF [id number] 15:13:16 Test Item Value Reference Range Interpretation Comments THYROID STIMULATING HORMONE 2.060 uIU/mL 0.350-4.940 (BEAKER) (test code = 772) [facility] ID - BSB-TYPE NATRIURETIC FACTOR (BNP)2022-03-06 14:26:30 Test Item Value Reference Range Interpretation Comments B-TYPE NATRIURETIC PEPTIDE (BEAKER) < pg/mL 0-100 (test code = 700) [facility] ID - JSHIGH SENSITIVITY TROPONIN [id number] 14:14:54 Test Item Value Reference Range Interpretation Comments HIGH SENSITIVITY < pg/ml See_Comment [Automated message] TROPONIN I (test code = The system which 0687532) generated this result transmitted ref erence range: <=35. Th e reference range was not used to interpr et this result as normal/abnormal . [facility] ID - JSThe SUPERVISOR MOLDING STAT High Sensitivity Troponin-I results should be used in conjunctionwith other diagnostic information such as ECG, clinical observations and information, and patient symptoms to aid in the diagnosis of HI.RAD, CHEST, 1 VIEW, NON [id number] 14:10:00Reason for exam:- >NEUROLOGIC PROBLEMShould this be performed at the bedside?->Yes [facility] 1970 Sex: MFINAL [...] Brown Verified Date/Time: 03/06/2022 14:10:44 REHENSIVE METABOLIC [id number] 14:08:22 Test Item Value Reference Range Interpretation [...] S NOT APPLICABLE FOR DIALYSIS PATIEN TS. [facility] ID - [id number] 14:07:49 Test Item Value Reference Range Interpretation Comments MAGNESIUM (BEAKER) (test code = 2.0 mg/dL 1.6-2.6 627) [facility] ID - [id number] 14:07:49 Test Item Value Reference Range Interpretation Comments PHOSPHORUS (BEAKER) (test code = 5.6 mg/dL 2.3-4.7 H 604) [facility] ID - JSLACTIC ACID, [id number] 13:51:04 Test Item Value Reference Range Interpretation Comments LACTATE BLOOD VENOUS 1.32 mmol/L 0.50-2.20 Specime n slightly (2) (BEAKER) (test hemolyzed code = 5432) [facility] ID - JSCBC W/PLT COUNT & AUTO [id number] 13:47:24 Test Item Value Reference Range Interpretation [...] (BEAKER) (test code = 2801) Coronavirus, CoVID-19, [id number] 01:07:20 Test Item Value Reference Range Interpretation Comments COVID-19 (SARS-COV-2) Not Detected Not Detected INTERP RETATION: No (test code = 94062-9) detect able levels of SARS-CoV-2 Coronavirus (COVID-19) [...] a nd other laborator y findings and ould not be used as the sole indicator of active infectio n with SARS-CoV-2 Coronavirus (COVID-19).COMM ENT: This Hologic Ap leatha SARS-CoV-2 mole cular diagnostic assa y utilizes Accounting Director Mediated Amplification ( TMA) technology to r apidly detect the SARS -CoV-2 (COVID-19) viru s from respiratory adriana ples. In accordance w ith the FDA's kam[place] nce document "Polic y for Diagnostic Test s for Coronavirus Disease-[address] [facility] the Public [facility] Emergency", thi s test was developed, and its performance characteristics were verified by the [facility] molecular diagn ostics laboratory and is authorized for clinical diagno stic use. This labor atory is certified un est[place] the Clinical Laboratory Improvement Amendments (CLI A) as qualified to pe rform high complexity clinical labora tory testing. Lab Interpretation Normal (test code = 87599-2) [facility] [id number] 01:07:20 Test Item Value Reference Range Interpretation Comments COVID-19 (SARS-COV-2) Not Detected Not Detected INTERP RETATION: No (test code = 53440-0) detect able levels of SARS-CoV-2 Coronavirus (COVID-19) [...] SARS-CoV-2 mole cular diagnostic assa y utilizes Accounting Director Mediated Amplification ( TMA) technology to r apidly detect the SARS -CoV-2 (COVID-19) viru s from respiratory adriana ples. In accordance w ith the FDA's kamran nce document "Polic y for Diagnostic Test s for Coronavirus Disease-[address] [facility] the Public [facility] Emergency", thi s test was developed, and its performance characteristics were verified by the [facility] molecular diagn ostics laboratory and is authorized for clinical diagno stic use. This labor atory is certified un [place] the Clinical Laboratory Improvement Amendments (CLI A) as qualified to pe rform high complexity clinical labora tory testing. Lab Interpretation Normal (test code = 62787-0) [facility], [id number] 01:07:20 Test Item Value Reference Range Interpretation Comments COVID-19 (SARS-COV-2) Not Detected Not Detected INTERP RETATION: No (test code = 58318-4) detect able levels of SARS-CoV-2 Coronavirus (COVID-19) [...] SARS-CoV-2 mole cular diagnostic assa y utilizes Accounting Director Mediated Amplification ( TMA) technology to r apidly detect the SARS -CoV-2 (COVID-19) viru s from respiratory adriana ples. In accordance w ith the FDA's kamran nce document "Polic y for Diagnostic Test s for Coronavirus Disease-[address] [facility] the Public [facility] Emergency", thi s test was developed, and its performance characteristics were verified by the [facility] molecular diagn ostics laboratory and is authorized for clinical diagno stic use. This labor atory is certified un [place] the Clinical Laboratory Improvement Amendments (CLI A) as qualified to pe rform high complexity clinical labora tory testing. Lab Interpretation Normal (test code = 46698-3) [facility], [id number] 01:07:20 Test Item Value Reference Range Interpretation Comments COVID-19 (SARS-COV-2) Not Detected Not Detected INTERP RETATION: No (test code = 44539-1) detect able levels of SARS-CoV-2 Coronavirus (COVID-19) [...] SARS-CoV-2 mole cular diagnostic assa y utilizes Accounting Director Mediated Amplification ( TMA) technology to r apidly detect the SARS -CoV-2 (COVID-19) viru s from respiratory adriana ples. In accordance w ith the FDA's kamran nce document "Polic y for Diagnostic Test s for Coronavirus Disease-[address] [facility] the Public [facility] th Emergency", thi s test was developed, and its performance characteristics were verified by the [facility] molecular diagn ostics laboratory and is authorized for clinical diagno stic use. This labor atory is certified un est[place] the Clinical Laboratory Improvement Amendments (CLI A) as qualified to pe rform high complexity clinical labora tory testing. Lab Interpretation Normal (test code = 56320-3) [facility], [id number] 01:07:20 Test Item Value Reference Range Interpretation Comments COVID-19 (SARS-COV-2) Not Detected Not Detected INTERP RETATION: No (test code = 26610-3) detect able levels of SARS-CoV-2 Coronavirus (COVID-19) [...] SARS-CoV-2 mole cular diagnostic assa y utilizes Accounting Director Mediated Amplification ( TMA) technology to r apidly detect the SARS -CoV-2 (COVID-19) viru s from respiratory adriana ples. In accordance w ith the FDA's kamran nce document "Polic y for Diagnostic Test s for Coronavirus Disease-2019 [facility]", thi s test was developed, and its performance characteristics were verified by the [facility] molecular diagn ostics laboratory and is authorized for clinical diagno stic use. This labor atory is certified un est[place] the Clinical Laboratory Improvement Amendments (CLI A) as qualified to pe rform high complexity clinical labora tory testing. Lab Interpretation Normal (test code = 87933-3) [facility], [id number] 01:07:20 Test Item Value Reference Range Interpretation Comments COVID-19 (SARS-COV-2) Not Detected Not Detected INTERP RETATION: No (test code = 31918-0) detect able levels of SARS-CoV-2 Coronavirus (COVID-19) [...] SARS-CoV-2 mole cular diagnostic assa y utilizes Accounting Director Mediated Amplification ( TMA) technology to r apidly detect the SARS -CoV-2 (COVID-19) viru s from respiratory adriana ples. In accordance w ith the FDA's kamran nce document "Polic y for Diagnostic Test s for Coronavirus Disease-2019 [facility]", thi s test was developed, and its performance characteristics were verified by the [facility] molecular diagn ostics laboratory and is authorized for clinical diagno stic use. This labor atory is certified un [place] the Clinical Laboratory Improvement Amendments (CLI A) as qualified to pe rform high complexity clinical labora tory testing. Lab Interpretation Normal (test code = 71215-2) [place] [facility], CoVID-19, [id number] 01:07:20 Test Item Value Reference Range Interpretation Comments COVID-19 (SARS-COV-2) Not Detected Not Detected INTERP RETATION: No (test code = 32703-2) detect able levels of SARS-CoV-2 Coronavirus (COVID-19) [...] SARS-CoV-2 mole cular diagnostic assa y utilizes Accounting Director Mediated Amplification ( TMA) technology to r apidly detect the SARS -CoV-2 (COVID-19) viru s from respiratory adriana ples. In accordance w ith the FDA's kamran nce document "Polic y for Diagnostic Test s for Coronavirus Disease-2019 [facility]", thi s test was developed, and its performance characteristics were verified by the [facility] molecular diagn ostics laboratory and is authorized for clinical diagno stic use. This labor atory is certified un [place] the Clinical Laboratory Improvement Amendments (CLI A) as qualified to pe rform high complexity clinical labora tory testing. Lab Interpretation Normal (test code = 48690-3) [facility], [id number] 01:07:20 Test Item Value Reference Range Interpretation Comments COVID-19 (SARS-COV-2) Not Detected Not Detected INTERP RETATION: No (test code = 19791-7) detect able levels of SARS-CoV-2 Coronavirus (COVID-19) [...] SARS-CoV-2 mole cular diagnostic assa y utilizes Accounting Director Mediated Amplification ( TMA) technology to r apidly detect the SARS -CoV-2 (COVID-19) viru s from respiratory adriana ples. In accordance w ith the FDA's kamran nce document "Polic y for Diagnostic Test s for Coronavirus Disease-[address] [facility] the [facility] Emergency", thi s test was developed, and its performance characteristics were verified by the [facility] molecular diagn ostics laboratory and is authorized for clinical diagno stic use. This labor atory is certified un [place] the Clinical Laboratory Improvement Amendments (CLI A) as qualified to pe rform high complexity clinical labora tory testing. Lab Interpretation Normal (test code = 12792-4) [facility], [id number] 01:07:20 Test Item Value Reference Range Interpretation Comments COVID-19 (SARS-COV-2) Not Detected Not Detected INTERP RETATION: No (test code = 67051-3) detect able levels of SARS-CoV-2 Coronavirus (COVID-19) [...] SARS-CoV-2 mole cular diagnostic assa y utilizes Accounting Director Mediated Amplification ( TMA) technology to r apidly detect the SARS -CoV-2 (COVID-19) viru s from respiratory adriana ples. In accordance w ith the FDA's kamran nce document "Polic y for Diagnostic Test s for Coronavirus Disease-[address] [facility] the [facility] Emergency", thi s test was developed, and its performance characteristics were verified by the [facility] molecular diagn ostics laboratory and is authorized for clinical diagno stic use. This labor atory is certified un [place] the Clinical Laboratory Improvement Amendments (CLI A) as qualified to pe rform high complexity clinical labora tory testing. Lab Interpretation Normal (test code = 93343-5) [facility], [id number] 01:07:20 Test Item Value Reference Range Interpretation Comments COVID-19 (SARS-COV-2) Not Detected Not Detected INTERP RETATION: No (test code = 71114-6) detect able levels of SARS-CoV-2 Coronavirus (COVID-19) [...] SARS-CoV-2 mole cular diagnostic assa y utilizes Accounting Director Mediated Amplification ( TMA) technology to r apidly detect the SARS -CoV-2 (COVID-19) viru s from respiratory adriaan ples. In accordance w ith the FDA's kamran nce document "Polic y for Diagnostic Test s for Coronavirus Disease-[address] [facility] the Public [facility] Emergency", thi s test was developed, and its performance characteristics were verified by the [facility] molecular diagn ostics laboratory and is authorized for clinical diagno stic use. This labor atory is certified un est[place] the Clinical Laboratory Improvement Amendments (CLI A) as qualified to pe rform high complexity clinical labora tory testing. Lab Interpretation Normal (test code = 35499-4) [facility], [id number] 01:07:20 Test Item Value Reference Range Interpretation Comments COVID-19 (SARS-COV-2) Not Detected Not Detected INTERP RETATION: No (test code = 41637-3) detect able levels of SARS-CoV-2 Coronavirus (COVID-19) [...] SARS-CoV-2 mole cular diagnostic assa y utilizes Accounting Director Mediated Amplification ( TMA) technology to r apidly detect the SARS -CoV-2 (COVID-19) viru s from respiratory adriana ples. In accordance w ith the FDA's kamran nce document "Polic y for Diagnostic Test s for Coronavirus Disease-[address] [facility] the Public [facility] Emergency", thi s test was developed, and its performance characteristics were verified by the [facility] molecular diagn ostics laboratory and is authorized for clinical diagno stic use. This labor atory is certified un est[place] the Clinical Laboratory Improvement Amendments (CLI A) as qualified to pe rform high complexity clinical labora tory testing. Lab Interpretation Normal (test code = 81600-9) [facility], CoVID-19, [id number] 01:07:20 Test Item Value Reference Range Interpretation Comments COVID-19 (SARS-COV-2) Not Detected Not Detected INTERP RETATION: No (test code = 92018-4) detect able levels of SARS-CoV-2 Coronavirus (COVID-19) [...] SARS-CoV-2 mole cular diagnostic assa y utilizes Accounting Director Mediated Amplification ( TMA) technology to r apidly detect the SARS -CoV-2 (COVID-19) viru s from respiratory adriana ples. In accordance w ith the FDA's kamran nce document "Polic y for Diagnostic Test s for Coronavirus Disease-[address] [facility] the [facility] Emergency", thi s test was developed, and its performance characteristics were verified by the [facility] molecular diagn ostics laboratory and is authorized for clinical diagno stic use. This labor atory is certified un [place] the Clinical Laboratory Improvement Amendments (CLI A) as qualified to pe rform high complexity clinical labora tory testing. Lab Interpretation Normal (test code = 88778-3) [facility], CoVID-19, [id number] 01:07:20 Test Item Value Reference Range Interpretation Comments COVID-19 (SARS-COV-2) Not Detected Not Detected INTERP RETATION: No (test code = 06046-3) detect able levels of SARS-CoV-2 Coronavirus (COVID-19) [...] SARS-CoV-2 mole cular diagnostic assa y utilizes Accounting Director Mediated Amplification ( TMA) technology to r apidly detect the SARS -CoV-2 (COVID-19) viru s from respiratory adriana ples. In accordance w ith the FDA's kamran nce document "Polic y for Diagnostic Test s for Coronavirus Disease-[address] [facility] the [facility] Emergency", thi s test was developed, and its performance characteristics were verified by the [facility] molecular diagn ostics laboratory and is authorized for clinical diagno stic use. This labor atory is certified un est[place]an the Clinical Laboratory Improvement Amendments (CLI A) as qualified to pe rform high complexity clinical labora tory testing. Lab Interpretation Normal (test code = 10247-5) [facility], [id number] 01:07:20 Test Item Value Reference Range Interpretation Comments COVID-19 (SARS-COV-2) Not Detected Not Detected INTERP RETATION: No (test code = 94829-0) detect able levels of SARS-CoV-2 Coronavirus (COVID-19) [...] SARS-CoV-2 mole cular diagnostic assa y utilizes Accounting Director Mediated Amplification ( TMA) technology to r apidly detect the SARS -CoV-2 (COVID-19) viru s from respiratory adriana ples. In accordance w ith the FDA's kamran nce document "Polic y for Diagnostic Test s for Coronavirus Disease-[address] [facility] the Public [facility] Emergency", thi s test was developed, and its performance characteristics were verified by the [facility] molecular diagn ostics laboratory and is authorized for clinical diagno stic use. This labor atory is certified un estevan the Clinical Laboratory Improvement Amendments (CLI A) as qualified to pe rform high complexity clinical labora tory testing. Lab Interpretation Normal (test code = 53508-7) [facility], [id number] 01:07:20 Test Item Value Reference Range Interpretation Comments COVID-19 (SARS-COV-2) Not Detected Not Detected INTERP RETATION: No (test code = 76743-7) detect able levels of SARS-CoV-2 Coronavirus (COVID-19) [...] SARS-CoV-2 mole cular diagnostic assa y utilizes Accounting Director Mediated Amplification ( TMA) technology to r apidly detect the SARS -CoV-2 (COVID-19) viru s from respiratory adriana ples. In accordance w ith the FDA's kamran nce document "Polic y for Diagnostic Test s for Coronavirus Disease-[address] [facility] the Public [facility] Emergency", thi s test was developed, and its performance characteristics were verified by the [facility] molecular diagn ostics laboratory and is authorized for clinical diagno stic use. This labor atory is certified un est[place] the Clinical Laboratory Improvement Amendments (CLI A) as qualified to pe rform high complexity clinical labora tory testing. Lab Interpretation Normal (test code = 22488-6) [facility]ronavirus, CoVID-19, [id number] 01:07:20 Test Item Value Reference Range Interpretation Comments COVID-19 (SARS-COV-2) Not Detected Not Detected INTERP RETATION: No (test code = 96856-6) detect able levels of SARS-CoV-2 Coronavirus (COVID-19) [...] SARS-CoV-2 mole cular diagnostic assa y utilizes Accounting Director Mediated Amplification ( TMA) technology to r apidly detect the SARS -CoV-2 (COVID-19) viru s from respiratory adriana ples. In accordance w ith the FDA's kamran nce document "Polic y for Diagnostic Test s for Coronavirus Disease-2019 [facility]", thi s test was developed, and its performance characteristics were verified by the [facility] molecular diagn ostics laboratory and is authorized for clinical diagno stic use. This labor atory is certified un estev[place] the Clinical Laboratory Improvement Amendments (CLI A) as qualified to pe rform high complexity clinical labora tory testing. Lab Interpretation Normal (test code = 63041-9) [facility]asronavirus, CoVID-19, [id number] 01:07:20 Test Item Value Reference Range Interpretation Comments COVID-19 (SARS-COV-2) Not Detected Not Detected INTERP RETATION: No (test code = 90350-5) detect able levels of SARS-CoV-2 Coronavirus (COVID-19) [...] SARS-CoV-2 mole cular diagnostic assa y utilizes Accounting Director Mediated Amplification ( TMA) technology to r apidly detect the SARS -CoV-2 (COVID-19) viru s from respiratory adriana ples. In accordance w ith the FDA's kamran nce document "Polic y for Diagnostic Test s for Coronavirus Disease-[address] [facility] the Public [facility] Emergency", thi s test was developed, and its performance characteristics were verified by the [facility] molecular diagn ostics laboratory and is authorized for clinical diagno stic use. This labor atory is certified un estevan the Clinical Laboratory Improvement Amendments (CLI A) as qualified to pe rform high complexity clinical labora tory testing. Lab Interpretation Normal (test code = 34301-2) [facility], [facility], [id number] 01:07:20 Test Item Value Reference Range Interpretation Comments COVID-19 (SARS-COV-2) Not Detected Not Detected INTERP RETATION: No (test code = 97139-4) detect able levels of SARS-CoV-2 Coronavirus (COVID-19) [...] SARS-CoV-2 mole cular diagnostic assa y utilizes Accounting Director Mediated Amplification ( TMA) technology to r apidly detect the SARS -CoV-2 (COVID-19) viru s from respiratory dariana ples. In accordance w ith the FDA's kamran nce document "Polic y for Diagnostic Test s for Coronavirus Disease-2019 du ring the Public [facility] th Emergency", thi s test was developed, and its performance characteristics were verified by the [facility] molecular diagn ostics laboratory and is authorized for clinical diagno stic use. This labor atory is certified un est[place] the Clinical Laboratory Improvement Amendments (CLI A) as qualified to pe rform high complexity clinical labora tory testing. Lab Interpretation Normal (test code = 94230-4) [facility], [facility]19, [id number] 01:07:20 Test Item Value Reference Range Interpretation Comments COVID-19 (SARS-COV-2) Not Detected Not Detected INTERP RETATION: No (test code = 59189-1) detect able levels of SARS-CoV-2 Coronavirus (COVID-19) [...] SARS-CoV-2 mole cular diagnostic assa y utilizes Accounting Director Mediated Amplification ( TMA) technology to r apidly detect the SARS -CoV-2 (COVID-19) viru s from respiratory adriana ples. In accordance w ith the FDA's kamran nce document "Polic y for Diagnostic Test s for Coronavirus Disease-2019 du ring the Public [facility] th Emergency", thi s test was developed, and its performance characteristics were verified by the [facility] molecular diagn ostics laboratory and is authorized for clinical diagno stic use. This labor atory is certified un est[place] the Clinical Laboratory Improvement Amendments (CLI A) as qualified to pe rform high complexity clinical labora tory testing. Lab Interpretation Normal (test code = 28347-9) Maged Ruelasronavirus, CoVID-19, [id number] 01:07:20 Test Item Value Reference Range Interpretation Comments COVID-19 (SARS-COV-2) Not Detected Not Detected INTERP RETATION: No (test code = 24559-8) detect able levels of SARS-CoV-2 Coronavirus (COVID-19) [...] SARS-CoV-2 mole cular diagnostic assa y utilizes Accounting Director Mediated Amplification ( TMA) technology to r apidly detect the SARS -CoV-2 (COVID-19) viru s from respiratory adriana ples. In accordance w ith the FDA's kamran nce document "Polic y for Diagnostic Test s for Coronavirus Disease-[address] [facility] the Public [facility] Emergency", thi s test was developed, and its performance characteristics were verified by the [facility] molecular diagn ostics laboratory and is authorized for clinical diagno stic use. This labor atory is certified un est[place] the Clinical Laboratory Improvement Amendments (CLI A) as qualified to pe rform high complexity clinical labora tory testing. Lab Interpretation Normal (test code = 13872-0) Maged Ruelasronavirus, CoVID-19, [id number] 01:07:20 Test Item Value Reference Range Interpretation Comments COVID-19 (SARS-COV-2) Not Detected Not Detected INTERP RETATION: No (test code = 58716-2) detect able levels of SARS-CoV-2 Coronavirus (COVID-19) [...] SARS-CoV-2 mole cular diagnostic assa y utilizes Accounting Director Mediated Amplification ( TMA) technology to r apidly detect the SARS -CoV-2 (COVID-19) viru s from respiratory adriana ples. In accordance w ith the FDA's kamran nce document "Polic y for Diagnostic Test s for Coronavirus Disease-[address] [facility] the Public [facility] Emergency", thi s test was developed, and its performance characteristics were verified by the [facility] molecular diagn ostics laboratory and is authorized for clinical diagno stic use. This labor atory is certified un [place] the Clinical Laboratory Improvement Amendments (CLI A) as qualified to pe rform high complexity clinical labora tory testing. Lab Interpretation Normal (test code = 70073-2) [facility], [facility], [id number] 01:07:20 Test Item Value Reference Range Interpretation Comments COVID-19 (SARS-COV-2) Not Detected Not Detected INTERP RETATION: No (test code = 72383-5) detect able levels of SARS-CoV-2 Coronavirus (COVID-19) [...] SARS-CoV-2 mole cular diagnostic assa y utilizes Accounting Director Mediated Amplification ( TMA) technology to r apidly detect the SARS -CoV-2 (COVID-19) viru s from respiratory adriana ples. In accordance w ith the FDA's kamran nce document "Polic y for Diagnostic Test s for Coronavirus Disease-2019 du ring the [facility]", thi s test was developed, and its performance characteristics were verified by the [facility] molecular diagn ostics laboratory and is authorized for clinical diagno stic use. This labor atory is certified un est[place] the Clinical Laboratory Improvement Amendments (CLI A) as qualified to pe rform high complexity clinical labora tory testing. Lab Interpretation Normal (test code = 79878-0) [facility] ChildrenOdkwjmBTIT-CsW-8 ORF1ab Resp Ql OLENA+laqfx3652-18-33 01:07:20 Test Item Value Reference Range Interpretation Comments Hospitalized? (test No code = 91918-2) ICU? (test code = No 61149-3) Symptomatic as No defined by CDC? (test code = 74171-6) Employed in No Healthcare? (test code = 62905-1) Resident in a No congregate care setting (including nursing homes, residential care for people with intellectual and developmental disabilities, psychiatric treatment facilities, group homes, board and care homes, homeless [place], foster care or other): (test code = 42175-7) SARS-CoV-2 ORF1ab NOT DETECTED Not Detected INTERPRETA TION: No Resp Ql OLENA+probe detectable levels of (test code = SARS-CoV-2 76996-4) Coronavirus (COVID-19) were present in this patient's [...] SARS-CoV-2 mole cular diagnostic assa y utilizes Accounting Director Mediated Amplification ( TMA) technology to r apidly detect the SARS -CoV-2 (COVID-19) viru s from respiratory adriana ples. In accordance with\\XC2A0\\the FDA's guidance docume nt "Policy for Diagnostic Test s for Coronavirus Disease-2019 du ring the Public [facility]", ginger s test was developed, and its performance characteristics were verified by the [facility] molecular diagn ostics laboratory and is authorized for clinical diagno stic use. \\XC2A0\\Ginger s laboratory is certified under the Clinical Labora tory Improvement Amendments (CLI A) as qualified to pe rform high complexity clinical labora tory testing. [facility] [id number] 08:09:01 Test Item Value Reference Range Interpretation Comments Glucose POC (test code = 22087474) 85 mg/dL 74-106 Lab Interpretation (test code = Normal 48674-4) [facility] [id number] 08:09:01 Test Item Value Reference Range Interpretation Comments Glucose POC (test code = 58672876) 85 mg/dL 74-106 Lab Interpretation (test code = Normal 26949-8) [facility] [id number] 08:09:01 Test Item Value Reference Range Interpretation Comments Glucose POC (test code = 94550098) 85 mg/dL 74-106 Lab Interpretation (test code = Normal 33345-8) [facility] [id number] 08:09:01 Test Item Value Reference Range Interpretation Comments Glucose POC (test code = 47279853) 85 mg/dL 74-106 Lab Interpretation (test code = Normal 83167-0) [facility] [id number] 08:09:01 Test Item Value Reference Range Interpretation Comments Glucose POC (test code = 61227998) 85 mg/dL 74-106 Lab Interpretation (test code = Normal 49782-7) [facility] [id number] 08:09:01 Test Item Value Reference Range Interpretation Comments Glucose POC (test code = 46261785) 85 mg/dL 74-106 Lab Interpretation (test code = Normal 57948-0) [facility] geywpj4146-77-93 08:09:01 Test Item Value Reference Range Interpretation Comments Glucose POC (test code = 42818646) 85 mg/dL 74-106 Lab Interpretation (test code = Normal 68910-9) [facility] chwwoo0896-15-42 08:09:01 Test Item Value Reference Range Interpretation Comments Glucose POC (test code = 36271134) 85 mg/dL 74-106 Lab Interpretation (test code = Normal 02707-2) [facility] [id number] 08:09:01 Test Item Value Reference Range Interpretation Comments Glucose POC (test code = 20124667) 85 mg/dL 74-106 Lab Interpretation (test code = Normal 38892-9) [facility] [id number] 08:09:01 Test Item Value Reference Range Interpretation Comments Glucose POC (test code = 10329103) 85 mg/dL 74-106 Lab Interpretation (test code = Normal 92055-7) [facility] fqxads4047-54-56 08:09:01 Test Item Value Reference Range Interpretation Comments Glucose POC (test code = 28353324) 85 mg/dL 74-106 Lab Interpretation (test code = Normal 96978-1) [facility] yfwqus9042-12-01 08:09:01 Test Item Value Reference Range Interpretation Comments Glucose POC (test code = 88514192) 85 mg/dL 74-106 Lab Interpretation (test code = Normal 68243-0) [facility] [id number] 08:09:01 Test Item Value Reference Range Interpretation Comments Glucose POC (test code = 11904728) 85 mg/dL 74-106 Lab Interpretation (test code = Normal 65822-8) [facility] [id number] 08:09:01 Test Item Value Reference Range Interpretation Comments Glucose POC (test code = 90302566) 85 mg/dL 74-106 Lab Interpretation (test code = Normal 53523-9) [facility] [id number] 08:09:01 Test Item Value Reference Range Interpretation Comments Glucose POC (test code = 56025082) 85 mg/dL 74-106 Lab Interpretation (test code = Normal 86683-4) [facility] [id number] 08:09:01 Test Item Value Reference Range Interpretation Comments Glucose POC (test code = 09904850) 85 mg/dL 74-106 Lab Interpretation (test code = Normal 51377-4) [facility] [id number] 08:09:01 Test Item Value Reference Range Interpretation Comments Glucose POC (test code = 90460019) 85 mg/dL 74-106 Lab Interpretation (test code = Normal 68875-3) [facility] [id number] 08:09:01 Test Item Value Reference Range Interpretation Comments Glucose POC (test code = 88155107) 85 mg/dL 74-106 Lab Interpretation (test code = Normal 57039-5) [facility] [id number] 08:09:01 Test Item Value Reference Range Interpretation Comments Glucose POC (test code = 73001176) 85 mg/dL 74-106 Lab Interpretation (test code = Normal 78577-9) [facility] [id number] 08:09:01 Test Item Value Reference Range Interpretation Comments Glucose POC (test code = 15443290) 85 mg/dL 74-106 Lab Interpretation (test code = Normal 51084-5) [facility] ybspyt6421-09-83 08:09:01 Test Item Value Reference Range Interpretation Comments Glucose POC (test code = 84047295) 85 mg/dL 74-106 Lab Interpretation (test code = Normal 09487-8) [facility] [id number] 08:09:01 Test Item Value Reference Range Interpretation Comments Glucose POC (test code = 12604106) 85 mg/dL 74-106 Lab Interpretation (test code = Normal 65867-5) [facility] ORF1ab Resp Ql OLENA+wlgxp6049-77-63 23:25:40 Test Item Value Reference Range Interpretation Comments Hospitalized? (test No code = 07068-0) ICU? (test code = No 17093-5) Symptomatic as No defined by CDC? (test code = 69592-3) Employed in No Healthcare? (test code = 67514-9) Resident in a No congregate care setting (including nursing homes, residential care for people with intellectual and developmental disabilities, psychiatric treatment facilities, group homes, board and care homes, homeless [place], foster care or other): (test code = 62589-3) SARS-CoV-2 ORF1ab NOT DETECTED Not Detected INTERPRETA TION: No Resp Ql OLENA+probe detectable levels of (test code = SARS-CoV-2 11380-1) Coronavirus (COVID-19) were present in this patient's [...] SARS-CoV-2 mole cular diagnostic assa y utilizes Accounting Director Mediated Amplification ( TMA) technology to r apidly detect the SARS -CoV-2 (COVID-19) viru s from respiratory adriana ples. In accordance with\\XC2A0\\the FDA's guidance docume nt "Policy for Diagnostic Test s for Coronavirus Disease-2019 du ring the Public [facility] Emergency", ginger s test was developed, and its performance characteristics were verified by the [facility] molecular diagn ostics laboratory and is authorized for clinical diagno stic use. \\XC2A0\\Thi s laboratory is certified under the Clinical Labora tory Improvement Amendments (CLI A) as qualified to pe rform high complexity clinical labora tory testing. [facility]12 Lead [id number] 15:46:1012 LEAD EKG FOR [facility] Test Date: 0497-88-45Mcz Name: DORA JOSEPH Department: 5ECIPatient ID: [id number] Room: Gender: M Transport Aircrewman: [id number]: 1970 Requested By: DARRION Cho Number: [id number] Reading MD: Rene Patterson MeasurementsIntervals [place] Rate: 61 P: 72PR: 152 QRS: 55QRSD: 106 T: 63QT: 398 QTc: 400 Interpretive StatementsSINUS RHYTHMPOSSIBLE RIGHT VENTRICULAR CONDUCTION DELAY [RSR (QR) IN V1/V2]Electronically Signed On 01-22-2022 8:30:45 CDT by Rene Valle Osisuz40 Lead [id number] 15:46:1012 LEAD EKG FOR [facility] Test Date: 2318-99-51Uxl Name: DORA JOSPEH Department: 5ECIPatient ID: [id number] Room: Gender: M Transport Aircrewman: [id number]: 1970 Requested By: DARRION Cho Number: [id number] Reading MD: Rene Patterson MeasurementsIntervals [place] Rate: 61 P: 72PR: 152 QRS: 55QRSD: 106 T: 63QT: 398 QTc: 400 Interpretive StatementsSINUS RHYTHMPOSSIBLE RIGHT VENTRICULAR CONDUCTION DELAY [RSR (QR) IN V1/V2]Electronically Signed On 01-22-2022 8:30:45 CDT by Rene Valle Cljecl60 Lead [id number] 15:46:1012 LEAD EKG FOR [facility] Test Date: 6852-16-33Bsl Name: DORA JOSEPH Department: 5ECIPatient ID: [id number] Room: Gender: M Transport Aircrewman: [id number]: 1970 Requested By: DARRION Cho Number: [id number] Reading MD: Rene Patterson MeasurementsIntervals [place] Rate: 61 P: 72PR: 152 QRS: 55QRSD: 106 T: 63QT: 398 QTc: 400 Interpretive StatementsSINUS RHYTHMPOSSIBLE RIGHT VENTRIC ULAR CONDUCTION DELAY [RSR (QR) IN V1/V2]Electronically Signed On 01-22-2022 8:30:45 CDT by Rene [facility] Begvty77 Lead [id number] 15:46:1012 LEAD EKG FOR [facility] Test Date: 2227-85-06Mjt Name: DORA JOSEPH Department: 5ECIPatient ID: [id number] Room: Gender: M Transport Aircrewman: [id number]: 1970 Requested By: DARRION Cho Number: [id number] Reading MD: Rene Patterson MeasurementsIntervals [place] Rate: 61 P: 72PR: 152 QRS: 55QRSD: 106 T: 63QT: 398 QTc: 400 Interpretive StatementsSINUS RHYTHMPOSSIBLE RIGHT VENTRICULAR CONDUCTION DELAY [RSR (QR) IN V1/V2]Electronically Signed On 01-22-2022 8:30:45 CDT by Rene AvitiaEnvirooCompanew [facility] Epihhk29 Lead [id number] 15:46:1012 LEAD EKG FOR [facility] Test Date: 3944-53-93Nja Name: DORA JOSEPH Department: 5ECIPatient ID: [id number] Room: Gender: M Transport Aircrewman: [id number]: 1970 Requested By: DARRION Cho Number: [id number] Reading MD: Rene Patterson MeasurementsIntervals [place] Rate: 61 P: 72P R: 152 QRS: 55QRSD: 106 T: 63QT: 398 QTc: 400 Interpretive StatementsSINUS RHYTHMPOSSIBLE RIGHT VENTRICULAR CONDUCTION DELAY [RSR (QR) IN V1/V2]Electronically Signed On 01-22-2022 8:30:45 CDT by Rene Valle Kuibgh40 Lead [id number] 15:46:1012 LEAD EKG FOR [facility] Test Date: 2960-25-76Ydk Name: DORA JOSEPH Department: 5ECIPatient ID: [id number] Room: Gender: M Transport Aircrewman: [id number]: 1970 Requested By: DARRION Cho Number: [id number] Reading MD: Rene Patterson MeasurementsIntervals [place] Rate: 61 P: 72PR: 152 QRS: 55QRSD: 106 T: 63QT: 398 QTc: 400 Interpretive StatementsSINUS RHYTHMPOSSIBLE RIGHT VENTRICULAR CONDUCTION DELAY [RSR (QR) IN V1/V2]Electronically Signed On 01-22-2022 8:30:45 CDT by [facility]12 Lead [id number] 15:46:1012 LEAD EKG FOR [facility] Test Date: 5207-21-12Ijc Name: DORA JOSEPH Department: 5ECIPatient ID: [id number] Room: Gender: M Transport Aircrewman: [id number]: 1970 Requested By: DARRION hCo Number: [id number] Reading MD: Rene Patterson MeasurementsIntervals [place] Rate: 61 P: 72PR: 152 QRS: 55QRSD: 106 T: 63QT: 398 QTc: 400 Interpretive StatementsSINUS RHYTHMPOSSIBLE RIGHT VENTRI CULAR CONDUCTION DELAY [RSR (QR) IN V1/V2]Electronically Signed On 01-22-2022 8:30:45 CDT by [facility] CenterAFTER-MOUSEJeffery V[place] [address] Lead [id number] 15:46:1012 LEAD EKG FOR [facility] Test Date: 9409-68-97Bof Name: DORA JOSEPH Department: 5ECIPatient ID: [id number] Room: Gender: M Transport Aircrewman: [id number]: 1970 Requested By: DARRION Cho Number: [id number] Reading MD: Rene Patterson MeasurementsIntervals [place] Rate: 61 P: 72PR: 152 QRS: 55QRSD: 106 T: 63QT: 398 QTc: 400 Interpretive StatementsSINUS RHYTHMPOSSIBLE RIGHT VENTRICULAR CONDUCTION DELAY [RSR (QR) IN V1/V2]Electronically Signed On 01-22-2022 8:30:45 CDT by [facility]12 Lead [id number] 15:46:1012 LEAD EKG FOR [facility] Test Date: 4767-72-99Gsx Name: DORA JOSEPH Department: 5ECIPatient ID: [id number] Room: Gender: M Transport Aircrewman: [id number]: 1970 Requested By: DARRION Cho Number: [id number] Reading MD: Rene Patterson MeasurementsIntervals [place] Rate: 61 P: 72PR: 152 QRS: 55QRSD: 106 T: 63QT: 398 QTc: 400 Interpretive StatementsSINUS RHYTHMPOSSIBLE RIGHT VENTRICULAR CONDUCTION DELAY [RSR (QR) IN V1/V2]Electronically Signed On 01-22-2022 8:30:45 CDT by Rene RaanSMDHarris Ufckob73 Lead [id number] 15:46:1012 LEAD EKG FOR [facility] Test Date: 6253-39-38Osf Name: DORA JOSEPH Department: 5ECIPatient ID: [id number] Room: Gender: M Transport Aircrewman: [id number]: 1970 Requested By: DARRION Cho Number: [id number] Reading MD: Rene Patterson MeasurementsIntervals [place] Rate: 61 P: 72PR: 152 QRS: 55QRSD: 106 T: 63QT: 398 QTc: 400 Interpretive StatementsSINUS RHYTHMPOSSIBLE RIGHT VENTRICULAR CONDUCTION DELAY [RSR (QR) IN V1/V2]Electronically Signed On 01-22-2022 8:30:45 CDT by Rene [facility]12 Lead [id number] 15:46:1012 LEAD EKG FOR [facility] Test Date: 7600-13-61Olg Name: DORA JOSEPH Department: 5ECIPatient ID: [id number] Room: Gender: M Transport Aircrewman: [id number]: 1970 Requested By: DARRION Cho Number: [id number] Reading MD: Rene Patterson MeasurementsIntervals [place] Rate: 61 P: 72PR: 152 QRS: 55QRSD: 106 T: 63QT: 398 QTc: 400 Interpretive StatementsSINUS RHYTHMPOSSIBLE RIGHT VENT RICULAR CONDUCTION DELAY [RSR (QR) IN V1/V2]Electronically Signed On 01-22-2022 8:30:45 CDT by Rene [facility] HospitalanSMDHarris Vmsytm35 Lead [id number] 15:46:1012 LEAD EKG FOR [facility] Test Date: 4149-86-57Txs Name: DORA JOSEPH Department: 5ECIPatient ID: [id number] Room: Gender: M Transport Aircrewman: [id number]: 1970 Requested By: DARRION Cho Number: [id number] Reading MD: Rene Patterson MeasurementsIntervals [place] Rate: 61 P: 72PR: 152 QRS: 55QRSD: 106 T: 63QT: 398 QTc: 400 Interpretive StatementsSINUS RHYTHMPOSSIBLE RIGHT VENTRICULAR CONDUCTION DELAY [RSR (QR) IN V1/V2]Electronically Signed On 01-22-2022 8:30:45 CDT by Renerick Valle Govael21 Lead [id number] 15:46:1012 LEAD EKG FOR [facility] Test Date: 0355-95-78Knp Name: DORA PAEZRY Department: 5EPatient ID: [id number] Room: Gender: M Transport Aircrewman: [id number]: 1970 Requested By: DARRION Cho Number: [id number] Reading MD: Rene Patterson MeasurementsIntervals [place] Rate: 61 P: 72PR: 152 QRS: 55QRSD: 106 T: 63QT: 398 QTc: 400 Interpretive StatementsSINUS RHYTHMPOSSIBLE RIGHT VENTRICULAR CONDUCTION DELAY [RSR (QR) IN V1/V2]Electronically Signed On 01-22-2022 8:30:45 CDT by Rene SadiEnvirooComparumr: turn off the lights12 Lead [id number] 15:46:1012 LEAD EKG FOR [facility] Test Date: 7599-00-16Ntd Name: DORA JOSEPH [facility] ID: [id number] Room: Gender: M Transport Aircrewman: [id number]: 1970 Requested By: DARRION Cho Number: [id number] Reading MD: Rene Patterson MeasurementsIntervals [place] Rate: 61 P: 72PR: 152 QRS: 55QRSD: 106 T: 63QT: 398 QTc: 400 Interpretive StatementsSINUS RHYTHMPOSSIBLE RIGHT VENTRICULAR CONDUCTION DELAY [RSR (QR) IN V1/V2]Electronically Signed On 01-22-2022 8:30:45 CDT by Rene SadiEnvirooComparumr: turn off the lights12 Lead [id number] 15:46:1012 LEAD EKG FOR [facility] Test Date: 8224-09-49Yvm Name: DORA JOSEPH Department: 5ECIPatient ID: [id number] Room: Gender: M Transport Aircrewman: [id number]: 1970 Requested By: DARRION Cho Number: [id number] Reading MD: Rene Patterson MeasurementsIntervals [place] Rate: 61 P: 72PR: 152 QRS: 55QRSD: 106 T: 63QT: 398 QTc: 400 Interpretive StatementsSINUS RHYTHMPOSSIBLE RIGHT VENTRI CULAR CONDUCTION DELAY [RSR (QR) IN V1/V2]Electronically Signed On 01-22-2022 8:30:45 CDT by Rene [facility] Lead [id number] 15:46:1012 LEAD EKG FOR [facility] Test Date: 2767-77-81Myp Name: DORA JOSEPH Department: 5ECIPatient ID: [id number] Room: Gender: M Transport Aircrewman: [id number]: 1970 Requested By: DARRION Cho Number: [id number] Reading MD: Rene Patterson MeasurementsIntervals [place] Rate: 61 P: 72PR: 152 QRS: 55QRSD: 106 T: 63QT: 398 QTc: 400 Interpretive StatementsSINUS RHYTHMPOSSIBLE RIGHT VENTRICULAR CONDUCTION DELAY [RSR (QR) IN V1/V2]Electronically Signed On 01-22-2022 8:30:45 CDT by Rene [place] Beer CompanySt. Anthony'S Healthcare Centerrumr: turn off the lights12 Lead [id number] 15:46:1012 LEAD EKG FOR [facility] Test Date: 0389-26-01Sel Name: DORA JOSEPH Department: 5ECIPatient ID: [id number] Room: Gender: M Transport Aircrewman: [id number]: 1970 Requested By: DARRION Cho Number: [id number] Reading : Rene Patterson MeasurementsIntervals [place] Rate: 61 P: 72PR : 152 QRS: 55QRSD: 106 T: 63QT: 398 QTc: 400 Interpretive StatementsSINUS RHYTHMPOSSIBLE RIGHT VENTRICULAR CONDUCTION DELAY [RSR (QR) IN V1/V2]Electronically Signed On 01-22-2022 8:30:45 CDT by Rene Glean[place] ResearchTeresa [place] [address] Lead [id number] 15:46:1012 LEAD EKG FOR [facility] Test Date: 4474-61-13Sbb Name: DORA JOSEPH Department: 5ECIPatient ID: [id number] Room: Gender: M Transport Aircrewman: [id number]: 1970 Requested By: DARRION Cho Number: [id number] Reading MD: Rene Patterson MeasurementsIntervals [place] Rate: 61 P: 72PR: 152 QRS: 55QRSD: 106 T: 63QT: 398 QTc: 400 Interpretive StatementsSINUS RHYTHMPOSSIBLE RIGHT VENTRICULAR CONDUCTION DELAY [RSR (QR) IN V1/V2]Electronically Signed On 01-22-2022 8:30:45 CDT by Rene AvitiaMDCompaLinda V[place] [address] Lead [id number] 15:46:1012 LEAD EKG FOR [facility] Test Date: 3817-27-24Hom Name: DORA JOSEPH Department: 5EPatient ID: [id number] Room: Gender: M Transport Aircrewman: [id number]: 1970 Requested By: DARRION Cho Number: [id number] Reading MD: Rene Patterson MeasurementsIntervals [place] Rate: 61 P: 72PR: 152 QRS: 55QRSD: 106 T: 63QT: 398 QTc: 400 Interpretive StatementsSINUS RHYTHMPOSSIBLE RIGHT VENTRI CULAR CONDUCTION DELAY [RSR (QR) IN V1/V2]Electronically Signed On 01-22-2022 8:30:45 CDT by Rene PaezDebbyMDCompaLinda [place] [address] Lead [id number] 15:46:1012 LEAD EKG FOR [facility] Test Date: 2755-48-64Gkq Name: DORA JOSEPH Department: 5ECIPatient ID: [id number] Room: Gender: M Transport Aircrewman: [id number]: 1970 Requested By: DARRION Cho Number: [id number] Reading MD: Rene Patterson MeasurementsIntervals [place] Rate: 61 P: 72PR: 152 QRS: 55QRSD: 106 T: 63QT: 398 QTc: 400 Interpretive StatementsSINUS RHYTHMPOSSIBLE RIGHT VENTRICULAR CONDUCTION DELAY [RSR (QR) IN V1/V2]Electronically Signed On 01-22-2022 8:30:45 CDT by Rene BiofuelboxDebbyEnvirooComparumr: turn off the lights12 Lead [id number] 15:46:1012 LEAD EKG FOR [facility] Test Date: 0440-46-92Dqf Name: DORA JOSEPH Department: 5ECIPatient ID: [id number] Room: Gender: M Transport Aircrewman: [id number]: 1970 Requested By: DARRION Cho Number: [id number] Reading MD: Rene Patterson MeasurementsIntervals [place] Rate: 61 P: 72P R: 152 QRS: 55QRSD: 106 T: 63QT: 398 QTc: 400 Interpretive StatementsSINUS RHYTHMPOSSIBLE RIGHT VENTRICULAR CONDUCTION DELAY [RSR (QR) IN V1/V2]Electronically Signed On 01-22-2022 8:30:45 CDT by Rene AvitiaEnvirooComparumr: turn off the lights12 Lead [id number] 15:46:1012 LEAD EKG FOR [facility] Test Date: 9763-48-50Xep Name: DORA JOSPEH Department: 5ECIPatient ID: [id number] Room: Gender: M Transport Aircrewman: [id number]: 1970 Requested By: DARRION Cho Number: [id number] Reading MD: Rene Patterson MeasurementsIntervals [place] Rate: 61 P: 72PR: 152 QRS: 55QRSD: 106 T: 63QT: 398 QTc: 400 Interpretive StatementsSINUS RHYTHMPOSSIBLE RIGHT VENTRICULAR CONDUCTION DELAY [RSR (QR) IN V1/V2]Electronically Signed On 01-22-2022 8:30:45 CDT by Rene HomeVivaCompaFair and Square [facility]+2 Ab+HIV1 p24 Ag SerPl Ql [id number] 07:02:58 Test Item Value Reference Range Interpretation Comments HIV 1+2 Ab+HIV1 p24 Ag SerPl Ql [place] NEGATIVE Negative (test code = 69625-0) [id number] 21:23:2512 LEAD EKG FOR [facility] Test Date: 0170-89-56Tfv Name: DORA JOSEPH Department: 5520Patient ID: [id number] Room: 7P56Nceggo: 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1970 Requested By: KARIN BASSETT AOrder Number: [id number] Reading MD: Chiara Calles MeasurementsIntervals [place] Rate: 72 P: 90PR: 157 QRS: 87QRSD: 105 T: 90QT: 360 QTc: 384 Interpretive StatementsSINUS RHYTHMPOSSIBLE RIGHT VENTRICULAR CONDUCTION DELAY [RSR (QR) IN V1/V2]EARLY REPOLARIZATION [ST ELEVATION WITH NORMALLY INFLECTED T- WAVE]Electronically Signed On 01-17-2022 13:02:30 CDT by [facility] ChildrenMake It WorkMegan Ville [address]OhbselNFB6613-32-69 21:23:2512 LEAD EKG FOR [facility] Test Date: 2071-46-69Zuj Name: DORA JOSEPH Department: 5520Patient ID: [id number] Room: 0E53Jrcdpd: 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1970 Requested By: JESSICA AOrder Number: [id number] Reading MD: Chiara Calles MeasurementsIntervals [place] Rate: 72 P: 90PR:157 QRS: 87QRSD: 105 T: 90QT: 360 QTc: 384 Interpretive StatementsSINUS RHYTHMPOSSIBLE RIGHT VENTRICULAR CONDUCTION DELAY [RSR (QR) IN V1/V2]EARLY REPOLARIZATION [ST ELEVATION WITH NORMALLY INFLECTED T- WAVE]Electronically Signed On 01-17-2022 13:02:30 CDT by [facility] Childrenrobert B2X Care SolutionsProv[address] St[address] Peter HospitalSkrackPIK6635-85-18 21:23:2512 LEAD EKG FOR [facility] Test Date: 6088-65-92Dyo Name: DORA JOSEPH Department: 5520Patient ID: [id number] Room: 1X02Oqphbg: 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1970 Requested By: KARIN BASSETT AOrder Number: [id number] Reading MD: Chiara Calles MeasurementsIntervals [place] Rate: 72 P: 90PR: 157 QRS: 87QRSD: 105 T: 90QT: 360 QTc: 384 Interpretive StatementsSINUS RHYTHMPOSSIBLE RIGHT VENTRICULAR CONDUCTION DELAY [RSR (QR) IN V1/V2]EARLY REPOLARIZATION [ST ELEVATION WITH NORMALLY INFLECTEDT- WAVE]Electronically Signed On 01-17-2022 13:02:30 CDT by [place] 84175022-05-26 21:23:2512 LEAD EKG FOR [facility] Test Date: 7328-18-70Bjo Name: DORA JOSEPH Department: 5520Patient ID: [id number] Room: 6A10Iunsyx: 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1970 Requested By: KARIN BASSETT AOrder Number: [id number] Reading MD: Chiara Calles MeasurementsIntervals [place] Rate: 72 P: 90PR: 157 QRS: 87QRSD: 105 T: 90QT: 360 QTc: 384 Interpretive StatementsSINUS RHYTHMPOSSIBLE RIGHT VENTRICULAR CONDUCTION DELAY [RSR (QR) IN V1/V2]EARLY REPOLARIZATION [ST ELEVATION WITH NORMALLY INFLECTED T- WAVE]Electronically Signed On 01-17-2022 13:02:30 CDT by [place] 84175022-05-26 21:23:2512 LEAD EKG FOR [facility] Test Date: 4150-23-60Iun Name: DORA JOSEPH Department: 5520Patient ID: [id number] Room: 2J02Nyrwuj: 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1970 Requested By: KARIN BASSETT AOrder Number: [id number] Reading MD: Chiara Calles MeasurementsIntervals [place] Rate: 72 P: 90PR:157 QRS: 87QRSD: 105 T: 90QT: 360 QTc: 384 Interpretive StatementsSINUS RHYTHMPOSSIBLE RIGHT VENTRICULAR CONDUCTION DELAY [RSR (QR) IN V1/V2]EARLY REPOLARIZATION [ST ELEVATION WITH NORMALLY INFLECTED T- WAVE]Electronically Signed On 01-17-2022 13:02:30 CDT by [place] 841962-05-26 21:23:2512 LEAD EKG FOR [facility] Test Date: 2396-38-86Sxd Name: DORA JOSEPH Department: 5520Patient ID: [id number] Room: 2U26Hozaug: 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1970 Requested By: KARIN BASSETT AOrder Number: [id number] Reading MD: Chiara Calles MeasurementsIntervals [place] Rate: 72 P: 90PR: 157 QRS: 87QRSD: 105 T: 90QT: 360 QTc: 384 Interpretive StatementsSINUS RHYTHMPOSSIBLE RIGHT VENTRICULAR CONDUCTION DELAY [RSR (QR) IN V1/V2]EARLY REPOLARIZATION [ST ELEVATION WITH NORMALLY INFLECTED T- WAVE]Electronically Signed On 01-17-2022 13:02:30 CDT by [facility] B2X Care SolutionsMegan [place] [address]VrcugaIWK4183-23-11 21:23:2512 LEAD EKG FOR [facility] Test Date: 7492-51-54Gwt Name: DORA JOSEPH Department: 5520Patient ID: [id number] Room: 6F78Jtrihi: 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1970 Requested By: KARIN BASSETT AOrder Number: [id number] Reading MD: Chiara Calles MeasurementsIntervals [place] Rate: 72 P: 90PR:157 QRS: 87QRSD: 105 T: 90QT: 360 QTc: 384 Interpretive StatementsSINUS RHYTHMPOSSIBLE RIGHT VENTRICULAR CONDUCTION DELAY [RSR (QR) IN V1/V2]EARLY REPOLARIZATION [ST ELEVATION WITH NORMALLY INFLECTED T- WAVE]Electronically Signed On 01-17-2022 13:02:30 CDT by [facility] ChildrenMake It WorkSt. Anthony'S Healthcare CenterSRS Medical SystemsGicxjvDTI5049-53-73 21:23:2512 LEAD EKG FOR [facility] Test Date: 8198-06-40Ipr Name: DORA [place] Department: 5520Patient ID: [id number] Room: 5Q10Iozwku: 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1970 Requested By: KARIN BASSETT AOrder Number: [id number] Reading MD: Chiara Calles MeasurementsIntervals [place] Rate: 72 P: 90PR: 157 QRS: 87QRSD: 105 T: 90QT: 360 QTc: 384 Interpretive StatementsSINUS RHYTHMPOSSIBLE RIGHT VENTRICULAR CONDUCTION DELAY [RSR (QR) IN V1/V2]EARLY REPOLARIZATION [ST ELEVATION WITH NORMALLY INFLECTED T- WAVE]Electronically Signed On 01-17-2022 13:02:30 CDT by [facility] ChildrenMake It WorkSt. Anthony'S Healthcare Centerrumr: turn off the lightsVcazokKKM7946-32-71 21:23:2512 LEAD EKG FOR [facility] Test Date: 9981-32-85Lbr Name: DORA JOSEPH Department: 5520Patient ID: [id number] Room: 9L52Seyqop: 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1970 Requested By: KARIN BASSETT AOrder Number: [id number] Reading MD: Chiara Calles MeasurementsIntervals [place] Rate: 72 P: 90PR: 157 QRS: 87QRSD: 105 T: 90QT: 360 QTc: 384 Interpretive StatementsSINUS RHYTHMPOSSIBLE RIGHT VENTRICULAR CONDUCTION DELAY [RSR (QR) IN V1/V2]EARLY REPOLARIZATION [ST ELEVATION WITH NORMALLY INFLECTED T- WAVE]Electronically Signed On 01-17-2022 13:02:30 CDT by [facility] B2X Care SolutionsMegan [place] [address]WjspanXNR9611-01-95 21:23:2512 LEAD EKG FOR [facility] Test Date: 6627-79-28Awz Name: DORA [place] Department: 5520Patient ID: [id number] Room: 8X85Usirbe: 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1970 Requested By: JESSICA AOrder Number: [id number] Reading MD: Chiara Calles MeasurementsIntervals [place] Rate: 72 P: 90PR:157 QRS: 87QRSD: 105 T: 90QT: 360 QTc: 384 Interpretive StatementsSINUS RHYTHMPOSSIBLE RIGHT VENTRICULAR CONDUCTION DELAY [RSR (QR) IN V1/V2]EARLY REPOLARIZATION [ST ELEVATION WITH NORMALLY INFLECTED T- WAVE]Electronically Signed On 01-17-2022 13:02:30 CDT by [facility] ChildrenMake It WorkSt. Anthony'S Healthcare CenterFair and Square MrwqpiLDA3425-88-99 21:23:2512 LEAD EKG FOR [facility] Test Date: 2022-21-51Fqz Name: DORA PAEZRY Department: 5520Patient ID: [id number] Room: 6H26Knfaxc: 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1970 Requested By: KARIN BASSETT AOrder Number: [id number] Reading MD: Chiara Calles MeasurementsIntervals [place] Rate: 72 P: 90PR: 157 QRS: 87QRSD: 105 T: 90QT: 360 QTc: 384 Interpretive StatementsSINUS RHYTHMPOSSIBLE RIGHT VENTRICULAR CONDUCTION DELAY [RSR (QR) IN V1/V2]EARLY REPOLARIZATION [ST ELEVATION WITH NORMALLY INFLECTED T- WAVE]Electronically Signed On 01-17-2022 13:02:30 CDT by [facility] B2X Care SolutionsMegan [place] [address]AjuwseBHT4387-20-61 21:23:2512 LEAD EKG FOR [facility] Test Date: 2899-95-94Nor Name: DORA JOSEPH Department: 5520Patient ID: [id number] Room: 3O07Jxnqkc: Transport Aircrewman: : 1970 Requested By: KARIN BASSETT AOrder Number: [id number] Reading MD: Chiara Calles MeasurementsIntervals [place] Rate: 72 P: 90PR:157 QRS: 87QRSD: 105 T: 90QT: 360 QTc: 384 Interpretive StatementsSINUS RHYTHMPOSSIBLE RIGHT VENTRICULAR CONDUCTION DELAY [RSR (QR) IN V1/V2]EARLY REPOLARIZATION [ST ELEVATION WITH NORMALLY INFLECTED T- WAVE]Electronically Signed On 01-17-2022 13:02:30 CDT by [facility] ChildrenMake It WorkShavertown SxutnjDMD9821-01-27 21:23:2512 LEAD EKG FOR [facility] Test Date: 7430-35-67Tbd Name: DORA JOSEPH Department: 5520Patient ID: [id number] Room: 7H03Ukzhwb: Transport Aircrewman: : 1970 Requested By: JESSICA AOrder Number: [id number] Reading MD: Chiara Calles MeasurementsIntervals [place] Rate: 72 P: 90PR: 157 QRS: 87QRSD: 105 T: 90QT: 360 QTc: 384 Interpretive StatementsSINUS RHYTHMPOSSIBLE RIGHT VENTRICULAR CONDUCTION DELAY [RSR (QR) IN V1/V2]EARLY REPOLARIZATION [ST ELEVATION WITH NORMALLY INFLECTEDT- WAVE]Electronically Signed On 01-17-2022 13:02:30 CDT by [facility] B2X Care SolutionsMegan [place] [address]EfiswmMFL9163-92-93 21:23:2512 LEAD EKG FOR [facility] Test Date: 6830-03-87Ifj Name: DORA JOSEPH Department: 5520Patient ID: [id number] Room: 8L75Ojyluu: 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1970 Requested By: KARIN BASSETT AOrder Number: [id number] Reading MD: Chiara Calles MeasurementsIntervals [place] Rate: 72 P: 90PR:157 QRS: 87QRSD: 105 T: 90QT: 360 QTc: 384 Interpretive StatementsSINUS RHYTHMPOSSIBLE RIGHT VENTRICULAR CONDUCTION DELAY [RSR (QR) IN V1/V2]EARLY REPOLARIZATION [ST ELEVATION WITH NORMALLY INFLECTED T- WAVE]Electronically Signed On 01-17-2022 13:02:30 CDT by [facility] MediaWorksDavid [place] [address]2022-05-26 21:23:2512 LEAD EKG FOR [facility] Test Date: 9250-28-12Nib Name: DORA JOSEPH Department: 5520Patient ID: [id number] Room: 6J60Plupnk: Transport Aircrewman: : 1970 Requested By: KARIN BASSETT AOrder Number: [id number] Reading MD: Chiara Calles MeasurementsIntervals [place] Rate: 72 P: 90PR:157 QRS: 87QRSD: 105 T: 90QT: 360 QTc: 384 Interpretive StatementsSINUS RHYTHMPOSSIBLE RIGHT VENTRICULAR CONDUCTION DELAY [RSR (QR) IN V1/V2]EARLY REPOLARIZATION [ST ELEVATION WITH NORMALLY INFLECTED T- WAVE]Electronically Signed On 01-17-2022 13:02:30 CDT by [facility] Childrenrobert B[address]X [address] SolutionsProv[address] Peter HospitalJlkprkCQE8198-77-14 21:23:2512 LEAD EKG FOR [facility] Test Date: 8163-69-80Bty Name: DORA JOSEPH Department: 5520Patient ID: [id number] Room: 0T66Ypuccq: 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1970 Requested By: JESSICA AOrder Number: [id number] Reading MD: Chiara Calles MeasurementsIntervals [place] Rate: 72 P: 90PR: 157 QRS: 87QRSD: 105 T: 90QT: 360 QTc: 384 Interpretive StatementsSINUS RHYTHMPOSSIBLE RIGHT VENTRICULAR CONDUCTION DELAY [RSR (QR) IN V1/V2]EARLY REPOLARIZATION [ST ELEVATION WITH NORMALLY INFLECTED T- WAVE]Electronically Signed On 01-17-2022 13:02:30 CDT by [place] 84175022-05-26 21:23:2512 LEAD EKG FOR [facility] Test Date: 5558-29-41Wgr Name: DORA JOSEPH Department: 5520Patient ID: [id number] Room: 4F46Qqifvp: 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1970 Requested By: KARIN BASSETT AOrder Number: [id number] Reading MD: Chiara Calles MeasurementsIntervals [place] Rate: 72 P: 90PR:157 QRS: 87QRSD: 105 T: 90QT: 360 QTc: 384 Interpretive StatementsSINUS RHYTHMPOSSIBLE RIGHT VENTRICULAR CONDUCTION DELAY [RSR (QR) IN V1/V2]EARLY REPOLARIZATION [ST ELEVATION WITH NORMALLY INFLECTED T- WAVE]Electronically Signed On 01-17-2022 13:02:30 CDT by [facility] HospitalSontraMegan Ville [address]AhddujBRV9699-17-09 21:23:2512 LEAD EKG FOR [facility] Test Date: 3865-74-83Hoa Name: DORA JOSEPH Department: 5520Patient ID: [id number] Room: 1A45Ytstfw: 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1970 Requested By: KARIN BASSETT AOrder Number: [id number] Reading MD: Chiara Calles MeasurementsIntervals [place] Rate: 72 P: 90PR: 157 QRS: 87QRSD: 105 T: 90QT: 360 QTc: 384 Interpretive StatementsSINUS RHYTHMPOSSIBLE RIGHT VENTRICULAR CONDUCTION DELAY [RSR (QR) IN V1/V2]EARLY REPOLARIZATION [ST ELEVATION WITH NORMALLY INFLECTED T-W AVE]Electronically Signed On 01-17-2022 13:02:30 CDT by [place] 84175022-05-26 21:23:2512 LEAD EKG FOR [facility] Test Date: 1607-61-89Nkp Name: DORA JOSEPH Department: 5520Patient ID: [id number] Room: 6P38Rmfgqn: 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1970 Requested By: KARIN BASSETT AOrder Number: [id number] Reading MD: Chiara Calles MeasurementsIntervals [place] Rate: 72 P: 90PR: 157 QRS: 87QRSD: 105 T: 90QT: 360 QTc: 384 Interpretive StatementsSINUS RHYTHMPOSSIBLE RIGHT VENTRICULAR CONDUCTION DELAY [RSR (QR) IN V1/V2]EARLY REPOLARIZATION [ST ELEVATION WITH NORMALLY INFLECTED T- WAVE]Electronically Signed On 01-17-2022 13:02:30 CDT by [facility] B2X Care SolutionsMegan [place] [address]LinmcmRQC9262-99-76 21:23:2512 LEAD EKG FOR [facility] Test Date: 3605-35-88Zau Name: DORA JOSEPH Department: 5520Patient ID: [id number] Room: 9E39Xnisrk: 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1970 Requested By: JESSICA AOrder Number: [id number] Reading MD: Chiara Calles MeasurementsIntervals [place] Rate: 72 P: 90PR: 157 QRS: 87QRSD: 105 T: 90QT: 360 QTc: 384 Interpretive StatementsSINUS RHYTHMPOSSIBLE RIGHT VENTRICULAR CONDUCTION DELAY [RSR (QR) IN V1/V2]EARLY REPOLARIZATION [ST ELEVATION WITH NORMALLY INFLECTEDT- WAVE]Electronically Signed On 01-17-2022 13:02:30 CDT by [facility] B2[employer] Care SolutionsMegan [place] [address]ZksljmORD3154-46-49 21:23:2512 LEAD EKG FOR [facility] Test Date: 6242-85-29Zmp Name: DORA JOSEPH Department: 5520Patient ID: [id number] Room: 6Z35Iqgdpj: 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 (test No code = 54566-8) ICU? (test code = No 47639-1) Symptomatic as No defined by CDC? (test code = 46765-7) Employed in No Healthcare? (test code = 39758-1) Resident in a No congregate care setting (including nursing homes, residential care for people with intellectual and developmental disabilities, psychiatric treatment facilities, group homes, board and care homes, homeless [place] health care facility, foster care or other): (test code = 26716-5) SARS-CoV-2 ORF1ab NOT DETECTED Not Detected INTERPRETA TION: No Resp Ql OLENA+probe detectable levels of (test code = SARS-CoV-2 55623-0) Coronavirus (COVID-19) were present in this patient's [...] (COVID-19).COMM ENT: This Hologic Ap leatha SARS-CoV-2 [facility] y utilizes Accounting Director Mediated Amplification ( TMA) technology to r apidly detect the SARS -CoV-2 (COVID-19) viru s from respiratory adriana ples. In accordance with\\XC2A0\\the FDA's guidance docume nt "Policy for Diagnostic Test s for Coronavirus Disease-2019 du ring the Public Heal th Emergency", ginger s test was developed, and its performance characteristics were verified by the [facility] molecular diagn ostics laboratory and is authorized for clinical diagno stic use. \\XC2A0\\Ginger s laboratory is certified under the Clinical Labora tory Improvement Amendments (CLI A) as qualified to pe rform high complexity clinical labora tory testing. [facility] CREATININE POC docked [id number] 13:57:55 Test Item Value Reference Range Interpretation Comments Creatinine POC (test 2.4 mg/dL 0.6-1.3 H Physici an Notified code = 92401735) eGFR (test code = 30 See_Comment L [Automate d message] 37189718) The system [employer] generated this result transmit dain reference range : >=90 mL/min/1.7 3 m2. The reference r meredith was not used to interpret this result as normal/abnormal . eGFR If Am (test 35 See_Comment L [A utomated message] code = 19012389) The system which generated this result transmit dain reference range : >=90 mL/min/1.7 3 m2. The reference r meredith was not used to interpret this result as normal/abnormal . Lab Interpretation (test Abnormal code = 53175-8) [facility] CREATININE POC docked [id number] 13:57:55 Test Item Value Reference Range Interpretation Comments Creatinine POC (test 2.4 mg/dL 0.6-1.3 H Physici an Notified code = 05797639) eGFR (test code = 30 See_Comment L [Automate d message] 62998338) The system [employer] generated this result transmit dain reference range : >=90 mL/min/1.7 3 m2. The reference r meredith was not used to interpret this result as normal/abnormal . eGFR If Am (test 35 See_Comment L [A utomated message] code = 83517659) The system which generated this result transmit dain reference range : >=90 mL/min/1.7 3 m2. The reference r meredith was not used to interpret this result as normal/abnormal . Lab Interpretation (test Abnormal code = 65970-3) [facility] [id number] 13:57:55 Test Item Value Reference Range Interpretation Comments Creatinine POC (test 2.4 mg/dL 0.6-1.3 H Physici an Notified code = 02670398) eGFR (test code = 30 See_Comment L [Automate d message] 51548337) The system [employer] generated this result transmit dain reference range : >=90 mL/min/1.7 3 m2. The reference r meredith was not used to interpret this result as normal/abnormal . eGFR If Am (test 35 See_Comment L [A utomated message] code = 80284316) The system which generated this result transmit dain reference range : >=90 mL/min/1.7 3 m2. The reference r meredith was not used to interpret this result as normal/abnormal . Lab Interpretation (test Abnormal code = 98493-1) [facility] CREATININE POC docked [id number] 13:57:55 Test Item Value Reference Range Interpretation Comments Creatinine POC (test 2.4 mg/dL 0.6-1.3 H Physici an Notified code = 31211030) eGFR (test code = 30 See_Comment L [Automate d message] 65616169) The system [employer] generated this result transmit dain reference range : >=90 mL/min/1.7 3 m2. The reference r meredith was not used to interpret this result as normal/abnormal . eGFR If Am (test 35 See_Comment L [A utomated message] code = 40103662) The system which generated this result transmit dain reference range : >=90 mL/min/1.7 3 m2. The reference r meredith was not used to interpret this result as normal/abnormal . Lab Interpretation (test Abnormal code = 28831-9) [facility] shpnbe6082-83-28 13:57:55 Test Item Value Reference Range Interpretation Comments Creatinine POC (test 2.4 mg/dL 0.6-1.3 H Physici an Notified code = 09027888) eGFR If non- Am 30 See_Comment L [Aut omated message] (test code = 63116607) The s ystem which generated this result transmit dain reference range : >=90 mL/min/1.7 3 m2. The reference r meredith was not used to interpret this result as normal/abnormal . eGFR If Am (test 35 See_Comment L [A utomated message] code = 59953430) The system which generated this result transmit dain reference range : >=90 mL/min/1.7 3 m2. The reference r meredith was not used to interpret this result as normal/abnormal . Lab Interpretation (test Abnormal code = 74908-5) [facility] CREATININE POC docked gaqzok7030-09-29 13:57:55 Test Item Value Reference Range Interpretation Comments Creatinine POC (test 2.4 mg/dL 0.6-1.3 H Physici an Notified code = 93318114) eGFR If non- Am 30 See_Comment L [Aut omated message] (test code = 36595023) The s ystem which generated this result transmit dain reference range : >=90 mL/min/1.7 3 m2. The reference r meredith was not used to interpret this result as normal/abnormal . eGFR If Am (test 35 See_Comment L [A utomated message] code = 86851517) The system which generated this result transmit dain reference range : >=90 mL/min/1.7 3 m2. The reference r meredith was not used to interpret this result as normal/abnormal . Lab Interpretation (test Abnormal code = 03443-2) [facility] CREATININE POC docked [id number] 13:57:55 Test Item Value Reference Range Interpretation Comments Creatinine POC (test 2.4 mg/dL 0.6-1.3 H Physici an Notified code = 45264992) eGFR If non- Am 30 See_Comment L [Aut omated message] (test code = 08302452) The s ystem which generated this result transmit dain reference range : >=90 mL/min/1.7 3 m2. The reference r meredith was not used to interpret this result as normal/abnormal . eGFR If Am (test 35 See_Comment L [A utomated message] code = 46935025) The system which generated this result transmit dain reference range : >=90 mL/min/1.7 3 m2. The reference r meredith was not used to interpret this result as normal/abnormal . Lab Interpretation (test Abnormal code = 28389-6) [facility] [id number] 13:57:55 Test Item Value Reference Range Interpretation Comments Creatinine POC (test 2.4 mg/dL 0.6-1.3 H Physici an Notified code = 51164239) eGFR If non- Am 30 See_Comment L [Aut omated message] (test code = 58315488) The s ystem which generated this result transmit dain reference range : >=90 mL/min/1.7 3 m2. The reference r meredith was not used to interpret this result as normal/abnormal . eGFR If Am (test 35 See_Comment L [A utomated message] code = 16918056) The system which generated this result transmit dain reference range : >=90 mL/min/1.7 3 m2. The reference r meredith was not used to interpret this result as normal/abnormal . Lab Interpretation (test Abnormal code = 14755-6) [facility] [id number] 13:57:55 Test Item Value Reference Range Interpretation Comments Creatinine POC (test 2.4 mg/dL 0.6-1.3 H Physici an Notified code = 59068227) eGFR If non- Am 30 See_Comment L [Aut omated message] (test code = 33522149) The s ystem which generated this result transmit dain reference range : >=90 mL/min/1.7 3 m2. The reference r meredith was not used to interpret this result as normal/abnormal . eGFR If Am (test 35 See_Comment L [A utomated message] code = 61602746) The system which generated this result transmit dain reference range : >=90 mL/min/1.7 3 m2. The reference r meredith was not used to interpret this result as normal/abnormal . Lab Interpretation (test Abnormal code = 71205-8) [facility] [id number] 13:57:55 Test Item Value Reference Range Interpretation Comments Creatinine POC (test 2.4 mg/dL 0.6-1.3 H Physici an Notified code = 21167885) eGFR If non- Am 30 See_Comment L [Aut omated message] (test code = 37219056) The s ystem which generated this result transmit dain reference range : >=90 mL/min/1.7 3 m2. The reference r meredith was not used to interpret this result as normal/abnormal . eGFR If Am (test 35 See_Comment L [A utomated message] code = 68993777) The system which generated this result transmit dain reference range : >=90 mL/min/1.7 3 m2. The reference r meredith was not used to interpret this result as normal/abnormal . Lab Interpretation (test Abnormal code = 15052-6) [facility] CREATININE POC docked [id number] 13:57:55 Test Item Value Reference Range Interpretation Comments Creatinine POC (test 2.4 mg/dL 0.6-1.3 H Physici an Notified code = 17627195) eGFR If non- Am 30 See_Comment L [Aut omated message] (test code = 90992249) The s ystem which generated this result transmit dain reference range : >=90 mL/min/1.7 3 m2. The reference r meredith was not used to interpret this result as normal/abnormal . eGFR If Am (test 35 See_Comment L [A utomated message] code = 97019117) The system which generated this result transmit dain reference range : >=90 mL/min/1.7 3 m2. The reference r meredith was not used to interpret this result as normal/abnormal . Lab Interpretation (test Abnormal code = 62426-2) [facility] CREATININE POC docked [id number] 13:57:55 Test Item Value Reference Range Interpretation Comments Creatinine POC (test 2.4 mg/dL 0.6-1.3 H Physici an Notified code = 56052597) eGFR If non- Am 30 See_Comment L [Aut omated message] (test code = 11088187) The s ystem which generated this result transmit dain reference range : >=90 mL/min/1.7 3 m2. The reference r meredith was not used to interpret this result as normal/abnormal . eGFR If Am (test 35 See_Comment L [A utomated message] code = 16439668) The system which generated this result transmit dain reference range : >=90 mL/min/1.7 3 m2. The reference r meredith was not used to interpret this result as normal/abnormal . Lab Interpretation (test Abnormal code = 40231-3) [facility] [id number] 13:57:55 Test Item Value Reference Range Interpretation Comments Creatinine POC (test 2.4 mg/dL 0.6-1.3 H Physici an Notified code = 77055511) eGFR If non- Am 30 See_Comment L [Aut omated message] (test code = 17396940) The s ystem which generated this result transmit dain reference range : >=90 mL/min/1.7 3 m2. The reference r meredith was not used to interpret this result as normal/abnormal . eGFR If Am (test 35 See_Comment L [A utomated message] code = 86972337) The system which generated this result transmit dain reference range : >=90 mL/min/1.7 3 m2. The reference r meredith was not used to interpret this result as normal/abnormal . Lab Interpretation (test Abnormal code = 25622-0) [facility] [id number] 13:57:55 Test Item Value Reference Range Interpretation Comments Creatinine POC (test 2.4 mg/dL 0.6-1.3 H Physici an Notified code = 50543024) eGFR If non- Am 30 See_Comment L [Aut omated message] (test code = 94447509) The s ystem which generated this result transmit dain reference range : >=90 mL/min/1.7 3 m2. The reference r meredith was not used to interpret this result as normal/abnormal . eGFR If Am (test 35 See_Comment L [A utomated message] code = 78777311) The system which generated this result transmit dain reference range : >=90 mL/min/1.7 3 m2. The reference r meredith was not used to interpret this result as normal/abnormal . Lab Interpretation (test Abnormal code = 30252-7) [facility] [id number] 13:57:55 Test Item Value Reference Range Interpretation Comments Creatinine POC (test 2.4 mg/dL 0.6-1.3 H Physici an Notified code = 55472771) eGFR If non- Am 30 See_Comment L [Aut omated message] (test code = 38274925) The s ystem which generated this result transmit dain reference range : >=90 mL/min/1.7 3 m2. The reference r meredith was not used to interpret this result as normal/abnormal . eGFR If Am (test 35 See_Comment L [A utomated message] code = 21248248) The system which generated this result transmit dain reference range : >=90 mL/min/1.7 3 m2. The reference r mreedith was not used to interpret this result as normal/abnormal . Lab Interpretation (test Abnormal code = 56142-2) [facility] CREATININE POC docked [id number] 13:57:55 Test Item Value Reference Range Interpretation Comments Creatinine POC (test 2.4 mg/dL 0.6-1.3 H Physici an Notified code = 90821772) eGFR If non- Am 30 See_Comment L [Aut omated message] (test code = 67920603) The s ystem which generated this result transmit dain reference range : >=90 mL/min/1.7 3 m2. The reference r meredith was not used to interpret this result as normal/abnormal . eGFR If Am (test 35 See_Comment L [A utomated message] code = 56955905) The system which generated this result transmit dain reference range : >=90 mL/min/1.7 3 m2. The reference r meredith was not used to interpret this result as normal/abnormal . Lab Interpretation (test Abnormal code = 85756-1) [facility] CREATININE POC docked [id number] 13:57:55 Test Item Value Reference Range Interpretation Comments Creatinine POC (test 2.4 mg/dL 0.6-1.3 H Physici an Notified code = 86853902) eGFR If non- Am 30 See_Comment L [Aut omated message] (test code = 21475398) The s ystem which generated this result transmit dain reference range : >=90 mL/min/1.7 3 m2. The reference r meredith was not used to interpret this result as normal/abnormal . eGFR If Am (test 35 See_Comment L [A utomated message] code = 28101971) The system which generated this result transmit dain reference range : >=90 mL/min/1.7 3 m2. The reference r meredith was not used to interpret this result as normal/abnormal . Lab Interpretation (test Abnormal code = 70867-3) [facility] CREATININE POC docked [id number] 13:57:55 Test Item Value Reference Range Interpretation Comments Creatinine POC (test 2.4 mg/dL 0.6-1.3 H Physici an Notified code = 49114933) eGFR If non- Am 30 See_Comment L [Aut omated message] (test code = 77759572) The s ystem which generated this result transmit dain reference range : >=90 mL/min/1.7 3 m2. The reference r meredith was not used to interpret this result as normal/abnormal . eGFR If Am (test 35 See_Comment L [A utomated message] code = 09933828) The system which generated this result transmit dain reference range : >=90 mL/min/1.7 3 m2. The reference r meredith was not used to interpret this result as normal/abnormal . Lab Interpretation (test Abnormal code = 04844-5) [facility] CREATININE POC docked [id number] 13:57:55 Test Item Value Reference Range Interpretation Comments Creatinine POC (test 2.4 mg/dL 0.6-1.3 H Physici an Notified code = 28185174) eGFR If non- Am 30 See_Comment L [Aut omated message] (test code = 15921694) The s ystem which generated this result transmit dain reference range : >=90 mL/min/1.7 3 m2. The reference r meredith was not used to interpret this result as normal/abnormal . eGFR If Am (test 35 See_Comment L [A utomated message] code = 98695852) The system which generated this result transmit dain reference range : >=90 mL/min/1.7 3 m2. The reference r meredith was not used to interpret this result as normal/abnormal . Lab Interpretation (test Abnormal code = 04253-8) [facility] [id number] 13:57:55 Test Item Value Reference Range Interpretation Comments Creatinine POC (test 2.4 mg/dL 0.6-1.3 H Physici an Notified code = 71513056) eGFR (test code = 30 See_Comment L [Automate d message] 30154096) The system [employer] generated this result transmit dain reference range : >=90 mL/min/1.7 3 m2. The reference r meredith was not used to interpret this result as normal/abnormal . eGFR If Am (test 35 See_Comment L [A utomated message] code = 95907293) The system which generated this result transmit dain reference range : >=90 mL/min/1.7 3 m2. The reference r meredith was not used to interpret this result as normal/abnormal . Lab Interpretation (test Abnormal code = 26639-9) [facility] CREATININE POC docked [id number] 13:57:55 Test Item Value Reference Range Interpretation Comments Creatinine POC (test 2.4 mg/dL 0.6-1.3 H Physici an Notified code = 27147542) eGFR (test code = 30 See_Comment L [Automate d message] 93424480) The system [employer] generated this result transmit dain reference range : >=90 mL/min/1.7 3 m2. The reference r meredith was not used to interpret this result as normal/abnormal . eGFR If Am (test 35 See_Comment L [A utomated message] code = 28594003) The system which generated this result transmit dain reference range : >=90 mL/min/1.7 3 m2. The reference r meredith was not used to interpret this result as normal/abnormal . Lab Interpretation (test Abnormal code = 91774-9) [facility] [id number] 13:57:55 Test Item Value Reference Range Interpretation Comments Creatinine POC (test 2.4 mg/dL 0.6-1.3 H Physici an Notified code = 99566944) eGFR (test code = 30 See_Comment L [Automate d message] 00216984) The system [employer] generated this result transmit dain reference range : >=90 mL/min/1.7 3 m2. The reference r meredith was not used to interpret this result as normal/abnormal . eGFR If Am (test 35 See_Comment L [A utomated message] code = 71832649) The system which generated this result transmit dain reference range : >=90 mL/min/1.7 3 m2. The reference r meredith was not used to interpret this result as normal/abnormal . Lab Interpretation (test Abnormal code = 64528-3) [facility] POC docked [id number] 13:48:46 Test Item Value Reference Range Interpretation Comments Sodium POC (test code = 126 mmol/L 136-145 L 94727714) Potassium POC (test code 4.4 mmol/L 3.5-5.1 = 21534299) Chloride POC (test code 100 mmol/L 98-107 = 12694911) TCO2 POC (test code = 17 mmol/L 21-32 L Physic aylin Notified 00464193) Urea Nitrogen POC (test 36 mg/dL 7-18 H code = 16844158) Glucose POC (test code = 114 mg/dL 74-106 H 27292800) Hemoglobin POC (test 11.9 g/dL 12-16 L code = 38152810) Hematocrit POC (test 35.0 % 37.0-47.0 L code = 61525612) Lab Interpretation (test Abnormal code = 57193-9) [facility] POC docked [id number] 13:48:46 Test Item Value Reference Range Interpretation Comments Sodium POC (test code = 126 mmol/L 136-145 L 78007675) Potassium POC (test code 4.4 mmol/L 3.5-5.1 = 77570929) Chloride POC (test code 100 mmol/L 98-107 = 29272196) TCO2 POC (test code = 17 mmol/L 21-32 L Physic aylin Notified 71856869) Urea Nitrogen POC (test 36 mg/dL 7-18 H code = 95322167) Glucose POC (test code = 114 mg/dL 74-106 H 84773488) Hemoglobin POC (test 11.9 g/dL 12-16 L code = 34708245) Hematocrit POC (test 35.0 % 37.0-47.0 L code = 83472774) Lab Interpretation (test Abnormal code = 67016-6) [facility] POC docked [id number] 13:48:46 Test Item Value Reference Range Interpretation Comments Sodium POC (test code = 126 mmol/L 136-145 L 67310674) Potassium POC (test code 4.4 mmol/L 3.5-5.1 = 57792166) Chloride POC (test code 100 mmol/L 98-107 = 77468263) TCO2 POC (test code = 17 mmol/L 21-32 L Physic aylin Notified 86872260) Urea Nitrogen POC (test 36 mg/dL 7-18 H code = 81442008) Glucose POC (test code = 114 mg/dL 74-106 H 01988457) Hemoglobin POC (test 11.9 g/dL 12-16 L code = 93865675) Hematocrit POC (test 35.0 % 37.0-47.0 L code = 08826098) Lab Interpretation (test Abnormal code = 07717-2) [facility] POC docked [id number] 13:48:46 Test Item Value Reference Range Interpretation Comments Sodium POC (test code = 126 mmol/L 136-145 L 67746282) Potassium POC (test code 4.4 mmol/L 3.5-5.1 = 78075590) Chloride POC (test code 100 mmol/L 98-107 = 86779781) TCO2 POC (test code = 17 mmol/L 21-32 L Physic aylin Notified 36343902) Urea Nitrogen POC (test 36 mg/dL 7-18 H code = 46923743) Glucose POC (test code = 114 mg/dL 74-106 H 64149391) Hemoglobin POC (test 11.9 g/dL 12-16 L code = 35478710) Hematocrit POC (test 35.0 % 37.0-47.0 L code = 18146083) Lab Interpretation (test Abnormal code = 23095-2) [facility] POC docked [id number] 13:48:46 Test Item Value Reference Range Interpretation Comments Sodium POC (test code = 126 mmol/L 136-145 L 53701380) Potassium POC (test code 4.4 mmol/L 3.5-5.1 = 01925773) Chloride POC (test code 100 mmol/L 98-107 = 41144490) TCO2 POC (test code = 17 mmol/L 21-32 L Physic aylin Notified 00299180) Urea Nitrogen POC (test 36 mg/dL 7-18 H code = 40211145) Glucose POC (test code = 114 mg/dL 74-106 H 05287826) Hemoglobin POC (test 11.9 g/dL 12-16 L code = 84927606) Hematocrit POC (test 35.0 % 37.0-47.0 L code = 17467928) Lab Interpretation (test Abnormal code = 73228-5) [facility] BMP POC docked [id number] 13:48:46 Test Item Value Reference Range Interpretation Comments Sodium POC (test code = 126 mmol/L 136-145 L 63653364) Potassium POC (test code 4.4 mmol/L 3.5-5.1 = 52800979) Chloride POC (test code 100 mmol/L 98-107 = 26307102) TCO2 POC (test code = 17 mmol/L 21-32 L Physic aylin Notified 58576396) Urea Nitrogen POC (test 36 mg/dL 7-18 H code = 57261974) Glucose POC (test code = 114 mg/dL 74-106 H 36430967) Hemoglobin POC (test 11.9 g/dL 12-16 L code = 80799640) Hematocrit POC (test 35.0 % 37.0-47.0 L code = 75673280) Lab Interpretation (test Abnormal code = 00081-9) [facility] BMP POC docked [id number] 13:48:46 Test Item Value Reference Range Interpretation Comments Sodium POC (test code = 126 mmol/L 136-145 L 08931302) Potassium POC (test code 4.4 mmol/L 3.5-5.1 = 19283608) Chloride POC (test code 100 mmol/L 98-107 = 95369285) TCO2 POC (test code = 17 mmol/L 21-32 L Physic aylin Notified 22596492) Urea Nitrogen POC (test 36 mg/dL 7-18 H code = 02473786) Glucose POC (test code = 114 mg/dL 74-106 H 25552766) Hemoglobin POC (test 11.9 g/dL 12-16 L code = 11263876) Hematocrit POC (test 35.0 % 37.0-47.0 L code = 44458745) Lab Interpretation (test Abnormal code = 38588-9) [facility] POC docked [id number] 13:48:46 Test Item Value Reference Range Interpretation Comments Sodium POC (test code = 126 mmol/L 136-145 L 57597541) Potassium POC (test code 4.4 mmol/L 3.5-5.1 = 97967548) Chloride POC (test code 100 mmol/L 98-107 = 94516042) TCO2 POC (test code = 17 mmol/L 21-32 L Physic aylin Notified 20837747) Urea Nitrogen POC (test 36 mg/dL 7-18 H code = 21522354) Glucose POC (test code = 114 mg/dL 74-106 H 02931533) Hemoglobin POC (test 11.9 g/dL 12-16 L code = 85305415) Hematocrit POC (test 35.0 % 37.0-47.0 L code = 94594414) Lab Interpretation (test Abnormal code = 83010-9) [facility] POC docked [id number] 13:48:46 Test Item Value Reference Range Interpretation Comments Sodium POC (test code = 126 mmol/L 136-145 L 20407038) Potassium POC (test code 4.4 mmol/L 3.5-5.1 = 64962310) Chloride POC (test code 100 mmol/L 98-107 = 97770032) TCO2 POC (test code = 17 mmol/L 21-32 L Physic aylin Notified 66998599) Urea Nitrogen POC (test 36 mg/dL 7-18 H code = 88973241) Glucose POC (test code = 114 mg/dL 74-106 H 82374249) Hemoglobin POC (test 11.9 g/dL 12-16 L code = 48875179) Hematocrit POC (test 35.0 % 37.0-47.0 L code = 70866144) Lab Interpretation (test Abnormal code = 59123-3) [facility] POC docked [id number] 13:48:46 Test Item Value Reference Range Interpretation Comments Sodium POC (test code = 126 mmol/L 136-145 L 64020128) Potassium POC (test code 4.4 mmol/L 3.5-5.1 = 52291632) Chloride POC (test code 100 mmol/L 98-107 = 06045453) TCO2 POC (test code = 17 mmol/L 21-32 L Physic aylin Notified 26265723) Urea Nitrogen POC (test 36 mg/dL 7-18 H code = 47413313) Glucose POC (test code = 114 mg/dL 74-106 H 12456001) Hemoglobin POC (test 11.9 g/dL 12-16 L code = 47233637) Hematocrit POC (test 35.0 % 37.0-47.0 L code = 15615595) Lab Interpretation (test Abnormal code = 49890-6) [facility] POC docked [id number] 13:48:46 Test Item Value Reference Range Interpretation Comments Sodium POC (test code = 126 mmol/L 136-145 L 60489369) Potassium POC (test code 4.4 mmol/L 3.5-5.1 = 94337651) Chloride POC (test code 100 mmol/L 98-107 = 63491957) TCO2 POC (test code = 17 mmol/L 21-32 L Physic aylin Notified 13884252) Urea Nitrogen POC (test 36 mg/dL 7-18 H code = 21614398) Glucose POC (test code = 114 mg/dL 74-106 H 95931255) Hemoglobin POC (test 11.9 g/dL 12-16 L code = 70751609) Hematocrit POC (test 35.0 % 37.0-47.0 L code = 13389956) Lab Interpretation (test Abnormal code = 59452-8) [facility] POC docked [id number] 13:48:46 Test Item Value Reference Range Interpretation Comments Sodium POC (test code = 126 mmol/L 136-145 L 27740005) Potassium POC (test code 4.4 mmol/L 3.5-5.1 = 85045505) Chloride POC (test code 100 mmol/L 98-107 = 22758065) TCO2 POC (test code = 17 mmol/L 21-32 L Physic aylin Notified 66247934) Urea Nitrogen POC (test 36 mg/dL 7-18 H code = 78320927) Glucose POC (test code = 114 mg/dL 74-106 H 61356326) Hemoglobin POC (test 11.9 g/dL 12-16 L code = 09635771) Hematocrit POC (test 35.0 % 37.0-47.0 L code = 21943954) Lab Interpretation (test Abnormal code = 23998-8) [facility] POC docked [id number] 13:48:46 Test Item Value Reference Range Interpretation Comments Sodium POC (test code = 126 mmol/L 136-145 L 07073808) Potassium POC (test code 4.4 mmol/L 3.5-5.1 = 51732537) Chloride POC (test code 100 mmol/L 98-107 = 28448220) TCO2 POC (test code = 17 mmol/L 21-32 L Physic aylin Notified 73790836) Urea Nitrogen POC (test 36 mg/dL 7-18 H code = 66872866) Glucose POC (test code = 114 mg/dL 74-106 H 02759313) Hemoglobin POC (test 11.9 g/dL 12-16 L code = 62411200) Hematocrit POC (test 35.0 % 37.0-47.0 L code = 33438937) Lab Interpretation (test Abnormal code = 05018-2) [facility] POC docked [id number] 13:48:46 Test Item Value Reference Range Interpretation Comments Sodium POC (test code = 126 mmol/L 136-145 L 30067589) Potassium POC (test code 4.4 mmol/L 3.5-5.1 = 66266355) Chloride POC (test code 100 mmol/L 98-107 = 97905392) TCO2 POC (test code = 17 mmol/L 21-32 L Physic aylin Notified 32231604) Urea Nitrogen POC (test 36 mg/dL 7-18 H code = 30416400) Glucose POC (test code = 114 mg/dL 74-106 H 32095481) Hemoglobin POC (test 11.9 g/dL 12-16 L code = 66641219) Hematocrit POC (test 35.0 % 37.0-47.0 L code = 72048806) Lab Interpretation (test Abnormal code = 81382-5) [facility] POC docked [id number] 13:48:46 Test Item Value Reference Range Interpretation Comments Sodium POC (test code = 126 mmol/L 136-145 L 41179061) Potassium POC (test code 4.4 mmol/L 3.5-5.1 = 50849056) Chloride POC (test code 100 mmol/L 98-107 = 50893108) TCO2 POC (test code = 17 mmol/L 21-32 L Physic aylin Notified 79668180) Urea Nitrogen POC (test 36 mg/dL 7-18 H code = 45696200) Glucose POC (test code = 114 mg/dL 74-106 H 82079024) Hemoglobin POC (test 11.9 g/dL 12-16 L code = 29971783) Hematocrit POC (test 35.0 % 37.0-47.0 L code = 72784241) Lab Interpretation (test Abnormal code = 03849-2) [facility] POC docked [id number] 13:48:46 Test Item Value Reference Range Interpretation Comments Sodium POC (test code = 126 mmol/L 136-145 L 44930190) Potassium POC (test code 4.4 mmol/L 3.5-5.1 = 42340512) Chloride POC (test code 100 mmol/L 98-107 = 27504272) TCO2 POC (test code = 17 mmol/L 21-32 L Physic aylin Notified 02459750) Urea Nitrogen POC (test 36 mg/dL 7-18 H code = 04346767) Glucose POC (test code = 114 mg/dL 74-106 H 72138246) Hemoglobin POC (test 11.9 g/dL 12-16 L code = 29441890) Hematocrit POC (test 35.0 % 37.0-47.0 L code = 28095596) Lab Interpretation (test Abnormal code = 77367-3) [facility] POC docked [id number] 13:48:46 Test Item Value Reference Range Interpretation Comments Sodium POC (test code = 126 mmol/L 136-145 L 21483854) Potassium POC (test code 4.4 mmol/L 3.5-5.1 = 47625175) Chloride POC (test code 100 mmol/L 98-107 = 27763809) TCO2 POC (test code = 17 mmol/L 21-32 L Physic aylin Notified 73544975) Urea Nitrogen POC (test 36 mg/dL 7-18 H code = 62129833) Glucose POC (test code = 114 mg/dL 74-106 H 93555621) Hemoglobin POC (test 11.9 g/dL 12-16 L code = 52732101) Hematocrit POC (test 35.0 % 37.0-47.0 L code = 02777699) Lab Interpretation (test Abnormal code = 33375-5) [facility] POC docked [id number] 13:48:46 Test Item Value Reference Range Interpretation Comments Sodium POC (test code = 126 mmol/L 136-145 L 30453013) Potassium POC (test code 4.4 mmol/L 3.5-5.1 = 41577347) Chloride POC (test code 100 mmol/L 98-107 = 35690506) TCO2 POC (test code = 17 mmol/L 21-32 L Physic aylin Notified 81758656) Urea Nitrogen POC (test 36 mg/dL 7-18 H code = 15683707) Glucose POC (test code = 114 mg/dL 74-106 H 03969707) Hemoglobin POC (test 11.9 g/dL 12-16 L code = 62515131) Hematocrit POC (test 35.0 % 37.0-47.0 L code = 00660177) Lab Interpretation (test Abnormal code = 50088-6) [facility] POC docked [id number] 13:48:46 Test Item Value Reference Range Interpretation Comments Sodium POC (test code = 126 mmol/L 136-145 L 42222770) Potassium POC (test code 4.4 mmol/L 3.5-5.1 = 65405200) Chloride POC (test code 100 mmol/L 98-107 = 01465799) TCO2 POC (test code = 17 mmol/L 21-32 L Physic aylin Notified 95202753) Urea Nitrogen POC (test 36 mg/dL 7-18 H code = 74233527) Glucose POC (test code = 114 mg/dL 74-106 H 39660592) Hemoglobin POC (test 11.9 g/dL 12-16 L code = 74553064) Hematocrit POC (test 35.0 % 37.0-47.0 L code = 98304524) Lab Interpretation (test Abnormal code = 72245-3) [facility] POC docked [id number] 13:48:46 Test Item Value Reference Range Interpretation Comments Sodium POC (test code = 126 mmol/L 136-145 L 14673304) Potassium POC (test code 4.4 mmol/L 3.5-5.1 = 74836048) Chloride POC (test code 100 mmol/L 98-107 = 90829680) TCO2 POC (test code = 17 mmol/L 21-32 L Physic aylin Notified 62963964) Urea Nitrogen POC (test 36 mg/dL 7-18 H code = 17568800) Glucose POC (test code = 114 mg/dL 74-106 H 45223856) Hemoglobin POC (test 11.9 g/dL 12-16 L code = 02286299) Hematocrit POC (test 35.0 % 37.0-47.0 L code = 99274028) Lab Interpretation (test Abnormal code = 41414-9) [facility] POC docked [id number] 13:48:46 Test Item Value Reference Range Interpretation Comments Sodium POC (test code = 126 mmol/L 136-145 L 81580130) Potassium POC (test code 4.4 mmol/L 3.5-5.1 = 57444567) Chloride POC (test code 100 mmol/L 98-107 = 68908836) TCO2 POC (test code = 17 mmol/L 21-32 L Physic aylin Notified 50322186) Urea Nitrogen POC (test 36 mg/dL 7-18 H code = 27640365) Glucose POC (test code = 114 mg/dL 74-106 H 20629158) Hemoglobin POC (test 11.9 g/dL 12-16 L code = 03209262) Hematocrit POC (test 35.0 % 37.0-47.0 L code = 67144280) Lab Interpretation (test Abnormal code = 88756-7) [facility] POC docked [id number] 13:48:46 Test Item Value Reference Range Interpretation Comments Sodium POC (test code = 126 mmol/L 136-145 L 19575726) Potassium POC (test code 4.4 mmol/L 3.5-5.1 = 04645104) Chloride POC (test code 100 mmol/L 98-107 = 04950149) TCO2 POC (test code = 17 mmol/L 21-32 L Physic aylin Notified 44741681) Urea Nitrogen POC (test 36 mg/dL 7-18 H code = 98776862) Glucose POC (test code = 114 mg/dL 74-106 H 94136746) Hemoglobin POC (test 11.9 g/dL 12-16 L code = 04963484) Hematocrit POC (test 35.0 % 37.0-47.0 L code = 32354256) Lab Interpretation (test Abnormal code = 36388-8) [facility]-CoV-2 ORF1ab Resp Ql OLENA+[id number] 20:25:16 Test Item Value Reference Range Interpretation Comments Hospitalized? (test No code = 58591-1) ICU? (test code = No 32198-9) Symptomatic as No defined by CDC? (test code = 99892-0) Employed in No Healthcare? (test code = 51012-5) Resident in a No congregate care setting (including nursing homes, residential care for people with intellectual and developmental disabilities, psychiatric treatment facilities, group homes, board and care homes, homeless [place] [facility] facility, foster care or other): (test code = 49237-0) SARS-CoV-2 ORF1ab NOT DETECTED Not Detected INTERPRETA TION: No Resp Ql OLENA+probe detectable levels of (test code = SARS-CoV-2 56080-9) Coronavirus (COVID-19) were present in this patient's [...] SARS-CoV-2 mole cular diagnostic assa y utilizes Accounting Director Mediated Amplification ( TMA) technology to r apidly detect the SARS -CoV-2 (COVID-19) viru s from respiratory adriana ples. In accordance with\\XC2A0\\the FDA's guidance docume nt "Policy for Diagnostic Test s for Coronavirus Disease-[address] [facility] the [facility]", ginger levine test was developed, and its performance characteristics were verified by the [facility] molecular diagn ostics laboratory and is authorized for clinical diagno stic use. \\XC2A0\\[facility] laboratory is certified under the Clinical Labora tory Improvement Amendments (CLI A) as qualified to pe rform high complexity clinical labora tory testing. [facility] VBG POC docked [id number] 11:16:15 Test Item Value Reference Range Interpretation Comments pH, Pankaj POC (test code 7.32 7.33-7.43 L = 33099425) pCO2,Pankaj POC (test code 31.0 See_Comment L [Au tomated = 43508467) message] The sy stem which generated this result transmitted reference range : 38 - 50 mmHg. The reference range was not used to interpret this result as normal/abnormal . PO2, Venous POC (BKR) 44 See_Comment L [Auto mated (test code = 91648266) messa ge] The system which generated this result transmitted reference range : 50 - 75 mm Hg. The reference range was not used to interpret this result as normal/abnormal . Ionized Calcium POC 1.24 mmol/L 1.15-1.29 (test code = 68961541) HCO3, Pankaj POC (test 16 mmol/L 22-26 L code = 99069492) TCO2 POC (test code = 17 mmol/L 21-32 L 72234820) Base Deficit, Pankaj POC -9 (test code = 14523008) Sample Type (test code IVEN Physi erik Notified = 82220432) % Sat, Pankaj POC (test 77 % code = 02488689) Lab Interpretation Abnormal (test code = 45450-0) [facility] VBG POC docked [id number] 11:16:15 Test Item Value Reference Range Interpretation Comments pH, Pankaj POC (test code 7.32 7.33-7.43 L = 98829081) pCO2,Pankaj POC (test code 31.0 See_Comment L [Au tomated = 76536843) message] The sy stem which generated this result transmitted reference range : 38 - 50 mmHg. The reference range was not used to interpret this result as normal/abnormal . PO2, Venous POC (BKR) 44 See_Comment L [Auto mated (test code = 30502956) [employer] ge] The system which generated this result transmitted reference range : 50 - 75 mm Hg. The reference range was not used to interpret this result as normal/abnormal . Ionized Calcium POC 1.24 mmol/L 1.15-1.29 (test code = 47172514) HCO3, Pankaj POC (test 16 mmol/L 22-26 L code = 32979989) TCO2 POC (test code = 17 mmol/L 21-32 L 15615122) Base Deficit, Pankaj POC -9 (test code = 99598923) Sample Type (test code IVEN Physi erik Notified = 90537797) % Sat, Pankaj POC (test 77 % code = 42132778) Lab Interpretation Abnormal (test code = 53862-6) [facility] VB POC docked [id number] 11:16:15 Test Item Value Reference Range Interpretation Comments pH, Pankaj POC (test code 7.32 7.33-7.43 L = 73771157) pCO2,Pankaj POC (test code 31.0 See_Comment L [Au tomated = 16997386) message] The sy stem which generated this result transmitted reference range : 38 - 50 mmHg. The reference range was not used to interpret this result as normal/abnormal . PO2, Venous POC (BKR) 44 See_Comment L [Auto mated (test code = 55787836) [employer]] The system which generated this result transmitted reference range : 50 - 75 mm Hg. The reference range was not used to interpret this result as normal/abnormal . Ionized Calcium POC 1.24 mmol/L 1.15-1.29 (test code = 54258937) HCO3, Pankaj POC (test 16 mmol/L 22-26 L code = 73927208) TCO2 POC (test code = 17 mmol/L 21-32 L 18789981) Base Deficit, Pankaj POC -9 (test code = 00033984) Sample Type (test code IVEN Physi erik Notified = 57558945) % Sat, Pankaj POC (test 77 % code = 17608971) Lab Interpretation Abnormal (test code = 35046-1) [facility] VBG POC docked [id number] 11:16:15 Test Item Value Reference Range Interpretation Comments pH, Pankaj POC (test code 7.32 7.33-7.43 L = 70787958) pCO2,Pankaj POC (test code 31.0 See_Comment L [Au tomated = 26078769) message] The sy stem which generated this result transmitted reference range : 38 - 50 mmHg. The reference range was not used to interpret this result as normal/abnormal . PO2, Venous POC (BKR) 44 See_Comment L [Auto mated (test code = 34722949) [employer] ge] The system which generated this result transmitted reference range : 50 - 75 mm Hg. The reference range was not used to interpret this result as normal/abnormal . Ionized Calcium POC 1.24 mmol/L 1.15-1.29 (test code = 33315303) HCO3, Pankaj POC (test 16 mmol/L 22-26 L code = 41577182) TCO2 POC (test code = 17 mmol/L 21-32 L 54517561) Base Deficit, Pankaj POC -9 (test code = 04179792) Sample Type (test code STEPAN Physi erik Notified = 13832465) % Sat, Pankaj POC (test 77 % code = 01668762) Lab Interpretation Abnormal (test code = 89979-8) [facility] VBG POC docked [id number] 11:16:15 Test Item Value Reference Range Interpretation Comments pH, Pankaj POC (test code 7.32 7.33-7.43 L = 16020661) pCO2,Pankaj POC (test code 31.0 See_Comment L [Au tomated = 99733891) message] The sy stem which generated this result transmitted reference range : 38 - 50 mmHg. The reference range was not used to interpret this result as normal/abnormal . PO2, Venous POC (BKR) 44 See_Comment L [Auto mated (test code = 56473208) [employer] ge] The system which generated this result transmitted reference range : 50 - 75 mm Hg. The reference range was not used to interpret this result as normal/abnormal . Ionized Calcium POC 1.24 mmol/L 1.15-1.29 (test code = 50252241) HCO3, Pankaj POC (test 16 mmol/L 22-26 L code = 73208454) TCO2 POC (test code = 17 mmol/L 21-32 L 37317287) Base Deficit, Pankaj POC -9 (test code = 36026541) Sample Type (test code STEPAN valencia Notified = 65855493) % Sat, Pankaj POC (test 77 % code = 85839899) Lab Interpretation Abnormal (test code = 10511-4) [facility] VBG POC docked [id number] 11:16:15 Test Item Value Reference Range Interpretation Comments pH, Pankaj POC (test code 7.32 7.33-7.43 L = 12453927) pCO2,Pankaj POC (test code 31.0 See_Comment L [Au tomated = 25614170) message] The sy stem which generated this result transmitted reference range : 38 - 50 mmHg. The reference range was not used to interpret this result as normal/abnormal . PO2, Venous POC (BKR) 44 See_Comment L [Auto mated (test code = 23671418) messa ge] The system which generated this result transmitted reference range : 50 - 75 mm Hg. The reference range was not used to interpret this result as normal/abnormal . Ionized Calcium POC 1.24 mmol/L 1.15-1.29 (test code = 88067463) HCO3, Pankaj POC (test 16 mmol/L 22-26 L code = 45889756) TCO2 POC (test code = 17 mmol/L 21-32 L 72976884) Base Deficit, Pankaj POC -9 (test code = 10180320) Sample Type (test code STEPAN valencia Notified = 15477514) % Sat, Pankaj POC (test 77 % code = 08489340) Lab Interpretation Abnormal (test code = 38316-7) [facility] VBG POC docked [id number] 11:16:15 Test Item Value Reference Range Interpretation Comments pH, Pankaj POC (test code 7.32 7.33-7.43 L = 20619438) pCO2,Pankaj POC (test code 31.0 See_Comment L [Au tomated = 78471141) message] The sy stem which generated this result transmitted reference range : 38 - 50 mmHg. The reference range was not used to interpret this result as normal/abnormal . PO2, Venous POC (BKR) 44 See_Comment L [Auto mated (test code = 32469101) messa ge] The system which generated this result transmitted reference range : 50 - 75 mm Hg. The reference range was not used to interpret this result as normal/abnormal . Ionized Calcium POC 1.24 mmol/L 1.15-1.29 (test code = 25416978) HCO3, Pankaj POC (test 16 mmol/L 22-26 L code = 65846148) TCO2 POC (test code = 17 mmol/L 21-32 L 97955765) Base Deficit, Pankaj POC -9 (test code = 27622679) Sample Type (test code IVFLORENCE Physi erik Notified = 48119242) % Sat, Pankaj POC (test 77 % code = 47191139) Lab Interpretation Abnormal (test code = 86698-9) [facility] VBG POC docked [id number] 11:16:15 Test Item Value Reference Range Interpretation Comments pH, Pankaj POC (test code 7.32 7.33-7.43 L = 35127393) pCO2,Pankaj POC (test code 31.0 See_Comment L [Au tomated = 93132128) message] The sy stem which generated this result transmitted reference range : 38 - 50 mmHg. The reference range was not used to interpret this result as normal/abnormal . PO2, Venous POC (BKR) 44 See_Comment L [Auto mated (test code = 03552080) [employer]] The system which generated this result transmitted reference range : 50 - 75 mm Hg. The reference range was not used to interpret this result as normal/abnormal . Ionized Calcium POC 1.24 mmol/L 1.15-1.29 (test code = 83661231) HCO3, Pankaj POC (test 16 mmol/L 22-26 L code = 15544564) TCO2 POC (test code = 17 mmol/L 21-32 L 19046570) Base Deficit, Pankaj POC -9 (test code = 36199186) Sample Type (test code IVEN Physi erik Notified = 36951183) % Sat, Pankaj POC (test 77 % code = 67238162) Lab Interpretation Abnormal (test code = 10373-8) [facility] P[facility] dock[facility] [id number] 11:16:15 Test Item Value Reference Range Interpretation Comments pH, Pankaj POC (test code 7.32 7.33-7.43 L = 51631616) pCO2,Pankaj POC (test code 31.0 See_Comment L [Au tomated = 33418728) message] The sy stem which generated this result transmitted reference range : 38 - 50 mmHg. The reference range was not used to interpret this result as normal/abnormal . PO2, Venous POC (BKR) 44 See_Comment L [Auto mated (test code = 05474094) messa ge] The system which generated this result transmitted reference range : 50 - 75 mm Hg. The reference range was not used to interpret this result as normal/abnormal . Ionized Calcium POC 1.24 mmol/L 1.15-1.29 (test code = 24213640) HCO3, Pankaj POC (test 16 mmol/L 22-26 L code = 74790544) TCO2 POC (test code = 17 mmol/L 21-32 L 90043498) Base Deficit, Pankaj POC -9 (test code = 30258427) Sample Type (test code IVEN Physi erik Notified = 90953535) % Sat, Pankaj POC (test 77 % code = 86666310) Lab Interpretation Abnormal (test code = 07425-3) [facility] VBG POC docked [id number] 11:16:15 Test Item Value Reference Range Interpretation Comments pH, Pankaj POC (test code 7.32 7.33-7.43 L = 35017653) pCO2,Pankaj POC (test code 31.0 See_Comment L [Au tomated = 97533323) message] The sy stem which generated this result transmitted reference range : 38 - 50 mmHg. The reference range was not used to interpret this result as normal/abnormal . PO2, Venous POC (BKR) 44 See_Comment L [Auto mated (test code = 12304884) messa ge] The system which generated this result transmitted reference range : 50 - 75 mm Hg. The reference range was not used to interpret this result as normal/abnormal . Ionized Calcium POC 1.24 mmol/L 1.15-1.29 (test code = 96033108) HCO3, Pankaj POC (test 16 mmol/L 22-26 L code = 45235821) TCO2 POC (test code = 17 mmol/L 21-32 L 16049376) Base Deficit, Pankaj POC -9 (test code = 92418407) Sample Type (test code IVEN Physi erik Notified = 69905131) % Sat, Pankaj POC (test 77 % code = 76361852) Lab Interpretation Abnormal (test code = 54467-8) [facility] VB POC docked [id number] 11:16:15 Test Item Value Reference Range Interpretation Comments pH, Pankaj POC (test code 7.32 7.33-7.43 L = 30563003) pCO2,Pankaj POC (test code 31.0 See_Comment L [Au tomated = 62321997) message] The sy stem which generated this result transmitted reference range : 38 - 50 mmHg. The reference range was not used to interpret this result as normal/abnormal . PO2, Venous POC (BKR) 44 See_Comment L [Auto mated (test code = 22504610) messa ge] The system which generated this result transmitted reference range : 50 - 75 mm Hg. The reference range was not used to interpret this result as normal/abnormal . Ionized Calcium POC 1.24 mmol/L 1.15-1.29 (test code = 24090977) HCO3, Pankaj POC (test 16 mmol/L 22-26 L code = 97940851) TCO2 POC (test code = 17 mmol/L 21-32 L 39662359) Base Deficit, Pankaj POC -9 (test code = 95393685) Sample Type (test code IVFLORENCE Physi erik Notified = 95096802) % Sat, Pankaj POC (test 77 % code = 20317840) Lab Interpretation Abnormal (test code = 17568-5) [facility] POC docked [id number] 11:16:15 Test Item Value Reference Range Interpretation Comments pH, Pankaj POC (test code 7.32 7.33-7.43 L = 33123785) pCO2,Pankaj POC (test code 31.0 See_Comment L [Au tomated = 06143460) message] The sy stem which generated this result transmitted reference range : 38 - 50 mmHg. The reference range was not used to interpret this result as normal/abnormal . PO2, Venous POC (BKR) 44 See_Comment L [Auto mated (test code = 65286575) messa ge] The system which generated this result transmitted reference range : 50 - 75 mm Hg. The reference range was not used to interpret this result as normal/abnormal . Ionized Calcium POC 1.24 mmol/L 1.15-1.29 (test code = 34821375) HCO3, Pankaj POC (test 16 mmol/L 22-26 L code = 94736854) TCO2 POC (test code = 17 mmol/L 21-32 L 37928927) Base Deficit, Pankaj POC -9 (test code = 11923986) Sample Type (test code STEPAN valencia Notified = 17747557) % Sat, Pankaj POC (test 77 % code = 90710163) Lab Interpretation Abnormal (test code = 62635-6) [facility] VBG POC docked [id number] 11:16:15 Test Item Value Reference Range Interpretation Comments pH, Pankaj POC (test code 7.32 7.33-7.43 L = 07593607) pCO2,Pankaj POC (test code 31.0 See_Comment L [Au tomated = 24034147) message] The sy stem which generated this result transmitted reference range : 38 - 50 mmHg. The reference range was not used to interpret this result as normal/abnormal . PO2, Venous POC (BKR) 44 See_Comment L [Auto mated (test code = 53736165) [employer]] The system which generated this result transmitted reference range : 50 - 75 mm Hg. The reference range was not used to interpret this result as normal/abnormal . Ionized Calcium POC 1.24 mmol/L 1.15-1.29 (test code = 29183305) HCO3, Pankaj POC (test 16 mmol/L 22-26 L code = 24372507) TCO2 POC (test code = 17 mmol/L 21-32 L 60310640) Base Deficit, Pankaj POC -9 (test code = 12724656) Sample Type (test code STEPAN valencia Notified = 50202752) % Sat, Pankaj POC (test 77 % code = 93235118) Lab Interpretation Abnormal (test code = 98286-7) [facility] VBG POC docked [id number] 11:16:15 Test Item Value Reference Range Interpretation Comments pH, Pankaj POC (test code 7.32 7.33-7.43 L = 19127958) pCO2,Pankaj POC (test code 31.0 See_Comment L [Au tomated = 84216835) message] The sy stem which generated this result transmitted reference range : 38 - 50 mmHg. The reference range was not used to interpret this result as normal/abnormal . PO2, Venous POC (BKR) 44 See_Comment L [Auto mated (test code = 42582233) [employer]] The system which generated this result transmitted reference range : 50 - 75 mm Hg. The reference range was not used to interpret this result as normal/abnormal . Ionized Calcium POC 1.24 mmol/L 1.15-1.29 (test code = 91860471) HCO3, Pankaj POC (test 16 mmol/L 22-26 L code = 78483389) TCO2 POC (test code = 17 mmol/L 21-32 L 83891192) Base Deficit, Pankaj POC -9 (test code = 95479552) Sample Type (test code IVEN Physi erik Notified = 02415894) % Sat, Pankaj POC (test 77 % code = 67594495) Lab Interpretation Abnormal (test code = 22963-5) [facility] VBG POC docked [id number] 11:16:15 Test Item Value Reference Range Interpretation Comments pH, Pankaj POC (test code 7.32 7.33-7.43 L = 00348076) pCO2,Pankaj POC (test code 31.0 See_Comment L [Au tomated = 91708171) message] The sy stem which generated this result transmitted reference range : 38 - 50 mmHg. The reference range was not used to interpret this result as normal/abnormal . PO2, Venous POC (BKR) 44 See_Comment L [Auto mated (test code = 13919752) [employer]] The system which generated this result transmitted reference range : 50 - 75 mm Hg. The reference range was not used to interpret this result as normal/abnormal . Ionized Calcium POC 1.24 mmol/L 1.15-1.29 (test code = 34374576) HCO3, Pankaj POC (test 16 mmol/L 22-26 L code = 51453795) TCO2 POC (test code = 17 mmol/L 21-32 L 69383129) Base Deficit, Pankaj POC -9 (test code = 27927490) Sample Type (test code IVEN Physi erik Notified = 51327389) % Sat, Pankaj POC (test 77 % code = 55026732) Lab Interpretation Abnormal (test code = 11946-1) [facility] VBG POC docked [id number] 11:16:15 Test Item Value Reference Range Interpretation Comments pH, Pankaj POC (test code 7.32 7.33-7.43 L = 00300038) pCO2,Pankaj POC (test code 31.0 See_Comment L [Au tomated = 35094409) message] The sy stem which generated this result transmitted reference range : 38 - 50 mmHg. The reference range was not used to interpret this result as normal/abnormal . PO2, Venous POC (BKR) 44 See_Comment L [Auto mated (test code = 29627991) messa ge] The system which generated this result transmitted reference range : 50 - 75 mm Hg. The reference range was not used to interpret this result as normal/abnormal . Ionized Calcium POC 1.24 mmol/L 1.15-1.29 (test code = 21760705) HCO3, Pankaj POC (test 16 mmol/L 22-26 L code = 82946393) TCO2 POC (test code = 17 mmol/L 21-32 L 38728426) Base Deficit, Pankaj POC -9 (test code = 21169490) Sample Type (test code IVEN Physi erik Notified = 04230225) % Sat, Pankaj POC (test 77 % code = 47563868) Lab Interpretation Abnormal (test code = 55140-9) [facility] VBG POC docked [id number] 11:16:15 Test Item Value Reference Range Interpretation Comments pH, Pankaj POC (test code 7.32 7.33-7.43 L = 00116824) pCO2,Pankaj POC (test code 31.0 See_Comment L [Au tomated = 93191469) message] The sy stem which generated this result transmitted reference range : 38 - 50 mmHg. The reference range was not used to interpret this result as normal/abnormal . PO2, Venous POC (BKR) 44 See_Comment L [Auto mated (test code = 92246825) messa ge] The system which generated this result transmitted reference range : 50 - 75 mm Hg. The reference range was not used to interpret this result as normal/abnormal . Ionized Calcium POC 1.24 mmol/L 1.15-1.29 (test code = 83849408) HCO3, Pankaj POC (test 16 mmol/L 22-26 L code = 38446536) TCO2 POC (test code = 17 mmol/L 21-32 L 44938893) Base Deficit, Pankaj POC -9 (test code = 78761887) Sample Type (test code IVEN Physi erik Notified = 69831235) % Sat, Pankaj POC (test 77 % code = 08528790) Lab Interpretation Abnormal (test code = 36724-0) [facility] VBG POC docked [id number] 11:16:15 Test Item Value Reference Range Interpretation Comments pH, Pankaj POC (test code 7.32 7.33-7.43 L = 66650621) pCO2,Pankaj POC (test code 31.0 See_Comment L [Au tomated = 81515916) message] The sy stem which generated this result transmitted reference range : 38 - 50 mmHg. The reference range was not used to interpret this result as normal/abnormal . PO2, Venous POC (BKR) 44 See_Comment L [Auto mated (test code = 08647051) messa ge] The system which generated this result transmitted reference range : 50 - 75 mm Hg. The reference range was not used to interpret this result as normal/abnormal . Ionized Calcium POC 1.24 mmol/L 1.15-1.29 (test code = 69241378) HCO3, Pankaj POC (test 16 mmol/L 22-26 L code = 77915425) TCO2 POC (test code = 17 mmol/L 21-32 L 80538097) Base Deficit, Pankaj POC -9 (test code = 72868135) Sample Type (test code STEPAN valencia Notified = 93791333) % Sat, Pankaj POC (test 77 % code = 80927092) Lab Interpretation Abnormal (test code = 53450-0) [facility] VB POC docked [id number] 11:16:15 Test Item Value Reference Range Interpretation Comments pH, Pankaj POC (test code 7.32 7.33-7.43 L = 70503824) pCO2,Pankaj POC (test code 31.0 See_Comment L [Au tomated = 84524397) message] The sy stem which generated this result transmitted reference range : 38 - 50 mmHg. The reference range was not used to interpret this result as normal/abnormal . PO2, Venous POC (BKR) 44 See_Comment L [Auto mated (test code = 88382274) messa ge] The system which generated this result transmitted reference range : 50 - 75 mm Hg. The reference range was not used to interpret this result as normal/abnormal . Ionized Calcium POC 1.24 mmol/L 1.15-1.29 (test code = 43406960) HCO3, Pankaj POC (test 16 mmol/L 22-26 L code = 59806559) TCO2 POC (test code = 17 mmol/L 21-32 L 34159551) Base Deficit, Pankaj POC -9 (test code = 75936348) Sample Type (test code IVFLORENCE Physi erik Notified = 36563218) % Sat, Pankaj POC (test 77 % code = 17031956) Lab Interpretation Abnormal (test code = 76425-0) [facility] VBG POC docked [id number] 11:16:15 Test Item Value Reference Range Interpretation Comments pH, Pankaj POC (test code 7.32 7.33-7.43 L = 48755348) pCO2,Pankaj POC (test code 31.0 See_Comment L [Au tomated = 07145216) message] The sy stem which generated this result transmitted reference range : 38 - 50 mmHg. The reference range was not used to interpret this result as normal/abnormal . PO2, Venous POC (BKR) 44 See_Comment L [Auto mated (test code = 45356687) [employer] ge] The system which generated this result transmitted reference range : 50 - 75 mm Hg. The reference range was not used to interpret this result as normal/abnormal . Ionized Calcium POC 1.24 mmol/L 1.15-1.29 (test code = 60291664) HCO3, Pankaj POC (test 16 mmol/L 22-26 L code = 09629671) TCO2 POC (test code = 17 mmol/L 21-32 L 22017642) Base Deficit, Pankaj POC -9 (test code = 70595069) Sample Type (test code IVFLORENCE Physi erik Notified = 72745414) % Sat, Pankaj POC (test 77 % code = 63823607) Lab Interpretation Abnormal (test code = 00516-9) [facility] VBG POC docked [id number] 11:16:15 Test Item Value Reference Range Interpretation Comments pH, Pankaj POC (test code 7.32 7.33-7.43 L = 76188491) pCO2,Pankaj POC (test code 31.0 See_Comment L [Au tomated = 95762772) message] The sy stem which generated this result transmitted reference range : 38 - 50 mmHg. The reference range was not used to interpret this result as normal/abnormal . PO2, Venous POC (BKR) 44 See_Comment L [Auto mated (test code = 30921226) [employer] ge] The system which generated this result transmitted reference range : 50 - 75 mm Hg. The reference range was not used to interpret this result as normal/abnormal . Ionized Calcium POC 1.24 mmol/L 1.15-1.29 (test code = 51414924) HCO3, Pankaj POC (test 16 mmol/L 22-26 L code = 27842169) TCO2 POC (test code = 17 mmol/L 21-32 L 64455974) Base Deficit, Pankaj POC -9 (test code = [id number]) Sample Type (test code IVEN Physi erik Notified = 99218320) % Sat, Pankaj POC (test 77 % code = 05994719) Lab Interpretation Abnormal (test code = 57295-8) [facility] VBG POC docked [id number] 11:16:15 Test Item Value Reference Range Interpretation Comments pH, Pankaj POC (test code 7.32 7.33-7.43 L = 08968645) pCO2,Pankaj POC (test code 31.0 See_Comment L [Au tomated = 00461785) message] The sy stem which generated this result transmitted reference range : 38 - 50 mmHg. The reference range was not used to interpret this result as normal/abnormal . PO2, Venous POC (BKR) 44 See_Comment L [Auto mated (test code = 39608408) [employer]] The system which generated this result transmitted reference range : 50 - 75 mm Hg. The reference range was not used to interpret this result as normal/abnormal . Ionized Calcium POC 1.24 mmol/L 1.15-1.29 (test code = 60695363) HCO3, Pankaj POC (test 16 mmol/L 22-26 L code = 87349103) TCO2 POC (test code = 17 mmol/L 21-32 L 21641580) Base Deficit, Pankaj POC -9 (test code = 66414078) Sample Type (test code IVEN Physi erik Notified = 28241893) % Sat, Pankaj POC (test 77 % code = 65579754) Lab Interpretation Abnormal (test code = 85762-2) [place] [address] LEAD [id number] 20:59:5612 LEAD EKG FOR [facility] Test Date: 0885-06-61Xir Name: DORA JOSEPH Department: 5520Patient ID: [id number] Room: Gender: M Transport Aircrewman: [id number]: 1970 Requested By: TANJA Garza Number: [id number] Reading MD: Chiara Calles MeasurementsIntervals [place] Rate: 75 P: 84PR: 153 QRS: 67QRSD: 104 T: 77QT: 344 QTc: 373 Interpretive StatementsSINUS RHYTHMPOSSIBLE RIGHT VENTRICULAR CONDUCTION DELAY [RSR (QR) IN V1/V2]Electronically Signed On 01-09-2022 8:27:19 CDT by SeeSontraComparumr: turn off the lights12 LEAD [id number] 20:59:5612 LEAD EKG FOR [facility] Test Date: 8400-00-32Tzx Name: DORA JOSEPH Department: 5520Patient ID: [id number] Room: Gender: M Transport Aircrewman: [id number]: 1970 Requested By: TANJA Garza Number: [id number] Reading MD: Chiara Calles MeasurementsIntervals [place] Rate: 75 P: 84PR: 153 QRS: 67QRSD: 104 T: 77QT: 344 QTc: 373 Interpretive StatementsSINUS RHYTHMPOSSIBLE RIGHT VENTR ICULAR CONDUCTION DELAY [RSR (QR) IN V1/V2]Electronically Signed On 01-09-2022 8:27:19 CDT by Chiara PlingabakariSontraComparumr: turn off the lights12 LEAD [id number] 20:59:5612 LEAD EKG FOR [facility] Test Date: 6661-09-85Bcb Name: DORA [place] Department: 5520Patient ID: [id number] Room: Gender: M Transport Aircrewman: [id number]: 1970 Requested By: TANJA Garza Number: [id number] Reading MD: Chiara Calles MeasurementsIntervals [place] Rate: 75 P: 84PR: 153 QRS: 67QRSD: 104 T: 77QT: 344 QTc: 373 Interpretive StatementsSINUS RHYTHMPOSSIBLE RIGHT VENTRICULAR CONDUCTION DELAY [RSR (QR) IN V1/V2]Electronically Signed On 01-09-2022 8:27:19 CDT by WalSalsifySt. Anthony'S Healthcare Centerrumr: turn off the lights12 LEAD [id number] 20:59:5612 LEAD EKG FOR [facility] Test Date: 5596-57-91Wcu Name: DORA JOSEPH Department: 5520Patient ID: [id number] Room: Gender: M Transport Aircrewman: [id number]: 1970 Requested By: TANJA Garza Number: [id number] Reading MD: Chiara Calles MeasurementsIntervals [place] Rate: 75 P: 84PR : 153 QRS: 67QRSD: 104 T: 77QT: 344 QTc: 373 Interpretive StatementsSINUS RHYTHMPOSSIBLE RIGHT VENTRICULAR CONDUCTION DELAY [RSR (QR) IN V1/V2]Electronically Signed On 01-09-2022 8:27:19 CDT by Waleed B2X Care SolutionsShavertown Arciva96 LEAD [id number] 20:59:5612 LEAD EKG FOR [facility] Test Date: 0823-23-49Eio Name: DORA JOSEPH Department: 5520Patient ID: [id number] Room: Gender: M Transport Aircrewman: [id number]: 1970 Requested By: TANJA Garza Number: [id number] Reading MD: Chiara Calles MeasurementsIntervals [place] Rate: 75 P: 84PR: 153 QRS: 67QRSD: 104 T: 77QT: 344 QTc: 373 Interpretive StatementsSINUS RHYTHMPOSSIBLE RIGHT VENTRICULAR CONDUCTION DELAY [RSR (QR) IN V1/V2]Electronically Signed On 01-09-2022 8:27:19 CDT by Walhoward university hospitalB2X Care SolutionsShriners Hospitals For Children12 LEAD [id number] 20:59:5612 LEAD EKG FOR [facility] Test Date: 1604-04-47Ush Name: DORA JOSEPH Department: 5520Patient ID: [id number] Room: Gender: M Transport Aircrewman: [id number]: 1970 Requested By: TANJA Garza Number: [id number] Reading MD: Chiara Calles MeasurementsIntervals [place] Rate: 75 P: 84PR: 153 QRS: 67QRSD: 104 T: 77QT: 344 QTc: 373 Interpretive StatementsSINUS RHYTHMPOSSIBLE RIGHT VENTR ICULAR CONDUCTION DELAY [RSR (QR) IN V1/V2]Electronically Signed On 01-09-2022 8:27:19 CDT by Chiara PlingabakariSontraComparumr: turn off the lights12 LEAD [id number] 20:59:5612 LEAD EKG FOR [facility] Test Date: 7871-51-81Kke Name: DORA JOSEPH Department: 5520Patient ID: [id number] Room: Gender: M Transport Aircrewman: [id number]: 1970 Requested By: TANJA Garza Number: [id number] Reading MD: Chiara Calles MeasurementsIntervals [place] Rate: 75 P: 84PR: 153 QRS: 67QRSD: 104 T: 77QT: 344 QTc: 373 Interpretive StatementsSINUS RHYTHMPOSSIBLE RIGHT VENTRICULAR CONDUCTION DELAY [RSR (QR) IN V1/V2]Electronically Signed On 01-09-2022 8:27:19 CDT by Chiara PlingabakariSontraComparumr: turn off the lights12 LEAD [id number] 20:59:5612 LEAD EKG FOR [facility] Test Date: 7355-70-32Vrw Name: DORA JOSEPH Department: 5520Patient ID: [id number] Room: Gender: M Transport Aircrewman: [id number]: 1970 Requested By: TANJA Garza Number: [id number] Reading MD: Chiara Calles MeasurementsIntervals [place] Rate: 75 P: 84 DC: 153 QRS: 67QRSD: 104 T: 77QT: 344 QTc: 373 Interpretive StatementsSINUS RHYTHMPOSSIBLE RIGHT VENTRICULAR CONDUCTION DELAY [RSR (QR) IN V1/V2]Electronically Signed On 01-09-2022 8:27:19 CDT by ChiaraCobrain12 LEAD [id number] 20:59:5612 LEAD EKG FOR [facility] Test Date: 9173-75-35Sfp Name: DORA PAEZRY Department: 5520Patient ID: [id number] Room: Gender: M Transport Aircrewman: [id number]: 1970 Requested By: TANJA Garza Number: [id number] Reading MD: Chiara Calles MeasurementsIntervals [place] Rate: 75 P: 84PR: 153 QRS: 67QRSD: 104 T: 77QT: 344 QTc: 373 Interpretive StatementsSINUS RHYTHMPOSSIBLE RIGHT VENTRICULAR CONDUCTION DELAY [RSR (QR) IN V1/V2]Electronically Signed On 01-09-2022 8:27:19 CDT by Chiara PlingabakariSontraComparumr: turn off the lights12 LEAD [id number] 20:59:5612 LEAD EKG FOR [facility] Test Date: 4985-66-10Uyt Name: DORA JOSEPH Department: 5520Patient ID: [id number] Room: Gender: M Transport Aircrewman: [id number]: 1970 Requested By: TANJA Garza Number: [id number] Reading MD: Chiara Calles MeasurementsIntervals [place] Rate: 75 P: 84PR: 153 QRS: 67QRSD: 104 T: 77QT: 344 QTc: 373 Interpretive StatementsSINUS RHYTHMPOSSIBLE RIGHT PANKAJ TRICULAR CONDUCTION DELAY [RSR (QR) IN V1/V2]Electronically Signed On 01-09-2022 8:27:19 CDT by Chiara DavisSontraComparumr: turn off the lights12 LEAD [id number] 20:59:5612 LEAD EKG FOR [facility] Test Date: 3449-63-40Ack Name: DORA PAEZRY Department: 5520Patient ID: [id number] Room: Gender: M Transport Aircrewman: [id number]: 1970 Requested By: TANJA Garza Number: [id number] Reading MD: Chiara Calles MeasurementsIntervals [place] Rate: 75 P: 84PR: 153 QRS: 67QRSD: 104 T: 77QT: 344 QTc: 373 Interpretive StatementsSINUS RHYTHMPOSSIBLE RIGHT VENTRICULAR CONDUCTION DELAY [RSR (QR) IN V1/V2]Electronically Signed On 01-09-2022 8:27:19 CDT by ChiaraB2X Care SolutionsSt. Anthony'S Healthcare Centerrumr: turn off the lights12 LEAD [id number] 20:59:5612 LEAD EKG FOR [facility] Test Date: 9367-82-00Phe Name: DORA [place] Department: 5520Patient ID: [id number] Room: Gender: M Transport Aircrewman: [id number]: 1970 Requested By: TANJA Garza Number: [id number] Reading MD: Chiara Calles MeasurementsIntervals [place] Rate: 75 P: 84P R: 153 QRS: 67QRSD: 104 T: 77QT: 344 QTc: 373 Interpretive StatementsSINUS RHYTHMPOSSIBLE RIGHT VENTRICULAR CONDUCTION DELAY [RSR (QR) IN V1/V2]Electronically Signed On 01-09-2022 8:27:19 CDT by SeeSontraComparumr: turn off the lights12 LEAD [id number] 20:59:5612 LEAD EKG FOR [facility] Test Date: 4351-17-83Uib Name: DORA FOR[place] Department: 5520Patient ID: [id number] Room: Gender: M Transport Aircrewman: [id number]: 1970 Requested By: TANJA Garza Number: [id number] Reading MD: Chiara Calles MeasurementsIntervals [place] Rate: 75 P: 84PR: 153 QRS: 67QRSD: 104 T: 77QT: 344 QTc: 373 Interpretive StatementsSINUS RHYTHMPOSSIBLE RIGHT VENTRICULAR CONDUCTION DELAY [RSR (QR) IN V1/V2]Electronically Signed On 01-09-2022 8:27:19 CDT by Chiara Esquedanew me[facility] Uxmzso13 LEAD [id number] 20:59:5612 LEAD EKG FOR [facility] Test Date: 4028-47-37Mae Name: DORA [place] Department: 5520Patient ID: [id number] Room: Gender: M Transport Aircrewman: [id number]: 1970 Requested By: TANJA Garza Number: [id number] Reading MD: Chiara Calles MeasurementsIntervals [place] Rate: 75 P: 84PR: 153 QRS: 67QRSD: 104 T: 77QT: 344 QTc: 373 Interpretive StatementsSINUS RHYTHMPOSSIBLE RIGHT VENT RICULAR CONDUCTION DELAY [RSR (QR) IN V1/V2]Electronically Signed On 01-09-2022 8:27:19 CDT by WaleedB2X Care SolutionsShriners Hospitals For Children12 LEAD [id number] 20:59:5612 LEAD EKG FOR [facility] Test Date: 5516-80-56Rye Name: DORA JOSEPH Department: 5520Patient ID: [id number] Room: Gender: M Transport Aircrewman: [id number]: 1970 Requested By: TANJA Garza Number: [id number] Reading MD: Chiara Calles MeasurementsIntervals [place] Rate: 75 P: 84PR: 153 QRS: 67QRSD: 104 T: 77QT: 344 QTc: 373 Interpretive StatementsSINUS RHYTHMPOSSIBLE RIGHT VENTRICULAR CONDUCTION DELAY [RSR (QR) IN V1/V2]Electronically Signed On 01-09-2022 8:27:19 CDT by Walrobert Plingabakariitembase12 LEAD [id number] 20:59:5612 LEAD EKG FOR [facility] Test Date: 7657-62-95Kbs Name: DORA PAEZRY Department: 5520Patient ID: [id number] Room: Gender: M Transport Aircrewman: [id number]: 1970 Requested By: TANJA Garza Number: [id number] Reading MD: Chiara Calles MeasurementsIntervals [place] Rate: 75 P: 84PR: 153 QRS: 67QRSD: 104 T: 77QT: 344 QTc: 373 Interpretive StatementsSINUS RHYTHMPOSSIBLE RIGHT VENTRICULAR CONDUCTION DELAY [RSR (QR) IN V1/V2]Electronically Signed On 01-09-2022 8:27:19 CDT by [facility] B2X Care SolutionsSt. Anthony'S Healthcare CenterFair and Square [place] [address] LEAD [id number] 20:59:5612 LEAD EKG FOR [facility] Test Date: 6297-10-59Cii Name: DORA [place]TH Department: 5520Patient ID: [id number] Room: Gender: M Transport Aircrewman: [id number]: 1970 Requested By: TANJA Garza Number: [id number] Reading MD: Chiara Calles MeasurementsIntervals [place] Rate: 75 P: 84PR: 153 QRS: 67QRSD: 104 T: 77QT: 344 QTc: 373 Interpretive StatementsSINUS RHYTHMPOSSIBLE RIGHT VENTRICULAR CONDUCTION DELAY [RSR (QR) IN V1/V2]Electronically Signed On 01-09-2022 8:27:19 CDT by yoonew12 LEAD [id number] 20:59:5612 LEAD EKG FOR [facility] Test Date: 0134-59-31Zun Name: DORA JOSEPH Department: 5520Patient ID: [id number] Room: Gender: M Transport Aircrewman: [id number]: 1970 Requested By: TANJA Garza Number: [id number] Reading MD: Chiara Calles MeasurementsIntervals [place] Rate: 75 P: 84PR: 153 QRS: 67QRSD: 104 T: 77QT: 344 QTc: 373 Interpretive StatementsSINUS RHYTHMPOSSIBLE RIGHT VENT RICULAR CONDUCTION DELAY [RSR (QR) IN V1/V2]Electronically Signed On 01-09-2022 8:27:19 CDT by [facility]360Learning12 LEAD [id number] 20:59:5612 LEAD EKG FOR [facility] Test Date: 4235-96-17Sua Name: DORA JOSEPH Department: 5520Patient ID: [id number] Room: Gender: M Transport Aircrewman: [id number]: 1970 Requested By: TANJA Garza Number: [id number] Reading MD: Chiara Calles MeasurementsIntervals [place] Rate: 75 P: 84PR: 153 QRS: 67QRSD: 104 T: 77QT: 344 QTc: 373 Interpretive StatementsSINUS RHYTHMPOSSIBLE RIGHT VENTRICULAR CONDUCTION DELAY [RSR (QR) IN V1/V2]Electronically Signed On 01-09-2022 8:27:19 CDT by yoonew12 LEAD [id number] 20:59:5612 LEAD EKG FOR [facility] Test Date: 8224-96-39Nzw Name: DORA PAEZRY Department: 5520Patient ID: [id number] Room: Gender: M Transport Aircrewman: [id number]: 1970 Requested By: TANJA Garza Number: [id number] Reading MD: Chiara Calles MeasurementsIntervals [place] Rate: 75 P: 84 DC: 153 QRS: 67QRSD: 104 T: 77QT: 344 QTc: 373 Interpretive StatementsSINUS RHYTHMPOSSIBLE RIGHT VENTRICULAR CONDUCTION DELAY [RSR (QR) IN V1/V2]Electronically Signed On 01-09-2022 8:27:19 CDT by Chiara EsquedaL[place] [address] LEAD [id number] 20:59:5612 LEAD EKG FOR [facility] Test Date: 8011-87-13Fva Name: DORA FOR[place]TH Department: 5520Patient ID: [id number] Room: Gender: M Transport Aircrewman: [id number]: 1970 Requested By: TANJA Garza Number: [id number] Reading MD: Chiara Calles MeasurementsIntervals [place] Rate: 75 P: 84PR: 153 QRS: 67QRSD: 104 T: 77QT: 344 QTc: 373 Interpretive StatementsSINUS RHYTHMPOSSIBLE RIGHT VENTRICULAR CONDUCTION DELAY [RSR (QR) IN V1/V2]Electronically Signed On 01-09-2022 8:27:19 CDT by ErrolMan[place] [address] LEAD [id number] 20:59:5612 LEAD EKG FOR [facility] Test Date: 1680-06-31Bhn Name: DORA FOR[place]TH Department: 5520Patient ID: [id number] Room: Gender: M Transport Aircrewman: [id number]: 1970 Requested By: TANJA Garza Number: [id number] Reading MD: Chiara Calles MeasurementsIntervals [place] Rate: 75 P: 84PR: 153 QRS: 67QRSD: 104 T: 77QT: 344 QTc: 373 Interpretive StatementsSINUS RHYTHMPOSSIBLE RIGHT VENT RICULAR CONDUCTION DELAY [RSR (QR) IN V1/V2]Electronically Signed On 01-09-2022 8:27:19 CDT by [facility] W/AUTO [id number] 23:52:00 Test Item Value Reference Range Interpretation [...] = MX#) 0.8 k/mm3 0.1-0.8 N LIVER [id number] 20:04:00 Test Item Value Reference Range Interpretation Comments TOTAL PROTEIN (test code 6.7 GM/DL 5.0-8.0 N Per formed by = PROT) 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 [facility] ed Ctr ALBUMIN (test code = [...] 67 UNITS/L 25-125 N LYNDSEY) BASIC METABOLIC [id number] 19:54:00 Test Item Value Reference Range Interpretation [...] POCGLU) 81 MG/DL - CT ABD PELVIS W/[id number] 00:00:00 [facility] L[facility]EName: MARIA ISABEL JOSEPH : 1970 Sex: M Name: MARIA ISABEL JOSEPH FSED : 1970 Age/S: 51 / M [address] [facility] Unit #: [id number] Loc: [place] [address] Phys: Raffaele Levi MD Acct: [id number] Dis Date: Status: PRE ER PHONE #: Exam Date: 09/23/20211999 FAX #: Reason: RUQ PAIN, VOMITING EXAMS: CPT CODE: [id number] CT ABD PELVIS W/CONT 20930PGDJLWAPR INFORMATION: Exam: CT Abdomen And Pelvis With [...] : 1970 Age/S: 51 / M [address] [facility] Unit #: [id number] Loc: [place] [address] Phys: Raffaele Levi MD Acct: [id number] Dis Date: Status: PRE ER PHONE #: Exam Date: 09/23/20211999 FAX #: Reason: RUQ PAIN, VOMITING EXAMS: CPT CODE:[id number] CT ABD PELVIS W/CONT 15882 <Continued> abdominal small bowel loops may relate [...] (2049) PAGE 2 Signed Report COMPREHENSIVE METABOLIC [id number] 11:51:00 Test Item Value Reference Range Interpretation [...] Units/L 50.0-136.0 N code = ALKP) PROTHROMBIN [id number] 11:41:00 Test Item Value Reference Range Interpretation Comments PROTHROMBIN TIME 10.9 SECONDS 9.9-12.8 N PATIENT (test code = PTP) INTERNATIONAL NORMAL 0.9 0.89-1.14 N THE INR IS TO BE USED RATIO (test code = ONLY FOR MONITORING INR) ORAL ANTICOAGULANTTH ERAPY. THE FOLLOWING A RE SUGGESTED RANGE S FROM [facility]:LOLITA CATION INR VALUEPROPHY [...] D ANTIBODIES 2.5 - 3.5 CBC W/AUTO [id number] 11:36:00 Test Item Value Reference Range Interpretation [...] X10 3uL 0.00-0.01 N NRBC#) CBC W/AUTO [id number] 09:48:00 Test Item Value Reference Range Interpretation [...] = MX#) 0.8 k/mm3 0.1-0.8 N GLUCOSE [id number] 06:12:00 Test Item Value Reference Range Interpretation Comments GLUCOSE BEDSIDE (test 129 MG/DL 70-[address] 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 Ctr BASIC METABOLIC [id number] 05:21:00 Test Item Value Reference Range Interpretation [...] (test code = POCGLU) 92 MG/DL GLUCOSE [id number] 05:19:00 Test Item Value Reference Range Interpretation Comments GLUCOSE BEDSIDE (test 51 MG/DL 70-110 L [facility] by certified code = GLUBED) turbogenerator operator at [facility] C[facility] CBC W/AUTO [id number] 14:00:00 Test Item Value Reference Range Interpretation [...] MX#) 0.2 k/mm3 0.1-0.8 N CBC W/AUTO [id number] 00:07:00 Test Item Value Reference Range Interpretation [...] = LY#) 2.4 K/uL 1.0-3.8 N LIVER [id number] 16:14:00 Test Item Value Reference Range Interpretation Comments TOTAL PROTEIN (test code 7.5 GM/DL 5.0-8.0 N Per formed by = PROT) 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 [facility] ed Ctr ALBUMIN (test code = [...] 65 UNITS/L 25-125 N LYNDSEY) BASIC METABOLIC [id number] 16:07:00 Test Item Value Reference Range Interpretation [...] POCGLU) 96 MG/DL - XR CHEST 1 [id number] 00:00:00 [facility]: DORA JOSEPH : 1970 Sex: MFAX: Steve Urias MD [phone] [place]: [place] St: PRE Name: OPALDORA Erazo FSED : 1970 Age/S: 51/M [address] [facility] Unit #: [id number] Loc: [place] [address] Phys: Steve Urias MD Acct: [id number] Dis Date: Status: PRE ER PHONE #: Exam Date: 06/27/2021 0189 FAX #: Reason: Abdominal PainEXAMS: CPT CODE: [id number] XR CHEST 1 V 54487 PROCEDURE INFORMATION: Exam: XR Chest Exam date [...] MD Technologist: RT Alanna(R)(CT) Trnscrd Date/Time/By: 06/27/2021 (155) : By: GarettJG42 [facility] Print D/T: S: 06/27/2021 (1557) PAGE 1 Signed Report- CT ABD PELVIS W/[id number] 00:00:00 [facility]: DORA JOSEPH : 1970 Sex: MName: DORA JOSEPH FSED : 1970 Age/S: 51 / M [address] [facility] Unit #: [id number] Loc: [place] [address] Phys: Steve Urias MD Acct: [id number] Dis Date: Status: REG ER PHONE #: Exam Date: 06/27/2021 9352 FAX #: Reason: pain in region of colostomy EXAMS: CPT CODE: [id number] ABD PELVIS W/CONT 67003 PROCEDURE INFORMATION: Exam: CT Abdomen And Pelvis With Contrast Exam date and time: 06/27/2021 4:14 PM Age: 51 years old Clinical indication: Abdominal pain; Generalized; Additional info: Pain in region of colostomy TECHNIQUE: Imaging protocol: Computed tomography of the abdomen and pelvis with contrast. Radiation optimization: All CT scans at this facility use at least oneof these dose optimization techniques: automated exposure control; [...] : 1970 Age/S: 51 / M [address] [facility] Unit #: [id number] Loc: [place] [address] Phys: Chema Urias MD Acct: [id number] Dis Date: Status: REG ER PHONE #: Exam Date: 06/27/2021 4488 FAX #: Reason:pain in region of colostomy EXAMS: CPT CODE: [id number] CT ABD PELVIS W/CONT 12108 <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 There is no evidence of associated intestinal obstruction. 2. No additional acute CT abnormalities of the abdomen or pelvis are identified. SL:131 at 1650 Reported and signed by: Marco Raman M.D. CC: Steve Urias MD Technologist:Yecenia Carbajal, RT(R)(CT) CTDI: DLP: Trnscb Date/Time: 06/27/2021 (1649) t.SDR.DMM Orig Print D/T: S: 06/27/2021 (1649) PAGE 2 Signed ReportCBC W/AUTO [id number] 09:20:00 Test Item Value Reference Range Interpretation [...] (test code NO = MDIFF) CBC W/AUTO [id number] 08:59:00 Test Item Value Reference Range Interpretation [...] REQUIRED (test code = MDIFF) BASIC METABOLIC [id number] 08:21:00 Test Item Value Reference Range Interpretation [...] 8.4 mg/dL 8.0-10.5 N CA) BASIC METABOLIC [id number] 08:34:00 Test Item Value Reference Range Interpretation [...] 8.4 mg/dL 8.0-10.5 N CA) CBC W/AUTO [id number] 07:41:00 Test Item Value Reference Range Interpretation [...] = MDIFF) UA RFLX MICR CULT IF [id number] 10:10:00 Test Item Value Reference Range Interpretation [...] > 100.4 FSpecimen Description: MID STREAMBASIC METABOLIC [id number] 04:13:00 Test Item Value Reference Range Interpretation [...] mg/dL 8.0-10.5 N CA) Coronavirus 2018 nCoV [id number] 22:03:00 Test Item Value Reference Range Interpretation Comments Coronavirus 2019 Negative Negative Performed b y certified nCoV Bedside (group leader [employer] [facility] [place] [facility] code = CtrNegative res ults should [id number]) be treated as presumptive and, ifinconsis tent with clinical signs and symptoms or necessaryfor patient management, fifi uld be tested with an alternativemole cular assay. Negative result s do not preclude PIPQ-DmR-9dyske tion and should not be u sed as the sole basis forp atient management deci sions. Negative result s should beconsidered in the context of a patient's recent exposures,histo ry, presence of clinical sig ns and symptoms consis tentwith COVID-19. CBC W/AUTO [id number] 21:11:00 Test Item Value Reference Range Interpretation [...] MX#) 0.6 k/mm3 0.1-0.8 N BASIC METABOLIC [id number] 19:00:00 Test Item Value Reference Range Interpretation [...] POCGLU) 92 MG/DL - CT ABD PELVIS W/[id number] 00:00:00 [facility] ODRA JOSEPH : 1970 Sex: MName: DORA JOSEPH FSED : 1970 Age/S: 51 / M [address] [facility] Unit #: [id number] Loc: [place] [address] Phys: Marcello Benoit MD Acct: [id number] Dis Date: Status: REG ERPHONE #: Exam Date: 04/28/20211913 FAX #: Reason: epigastric and LLQ pain, R-sided colostomy EXAMS: CPT CODE: [id number] CT ABD PELVIS W/CONT 16700 PROCEDURE INFORMATION: Exam: CT Abdomen And Pelvis [...] 1 Signed Report (CONTINUED) Name: DORA JOSEPH [facility] : 1970 Age/S: 51 / M [address] [facility] Unit #: [id number] Loc: [place] [address] Phys: Marcello Benoit MD Acct: [id number] Dis Date: Status: REG ER PHONE #: Exam Date: 04/28/2021 1914 FAX #: Reason: epigastric and LLQ pain, R-sided colostomy EXAMS: CPT CODE: [id number] CT ABD PELVIS W/CONT 59737 <Continued> Reproductive: Unremarkable as visualized. Bones/joints: Unremarkable. No acute fracture. Soft tissues: Unremarkable. IMPRESSION: 1. 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 2. Mild long segment bowel wall thickening/mucosal prominence compatible with an enteritis. No evidence for obstruction. at 1955 Reported and signed by: Hector Nichols M.D. CC: Marcello Benoit MD Technologist:Stephanie Albrecht, RT(R)(CT) CTDI: DLP: Trnscb Date/Time: 04/28/2021 (1955) tDARWINR.CASSIDYL Orig Print D/T: S: 04/28/2021 (1955) PAGE 2 Signed Report- XR ABDOMEN 1 [id number] 12:53:00 Name: DORA JOSEPH [facility] : 1970 Age/S: 50 / M [address] [facility] Unit #: [id number] Loc: [place] [address] 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 Acct: [id number] Dis Date: Status: ADM IN PHONE #: [phone] Exam Date: 02/25/2020 1036 FAX #: Reason: abdominal distention EXAMS: CPT: [id number] XR ABDOMEN 1 V 00600 Fluoro Time: DAP (Gy m2): Air Kerma [...] the left lower quadrant (not previously seen) [id number] Reported and signed by: Sol Paige MD CC: Andre Solano; Mark Perea MD PAGE 1 Signed Report Name: DORA JOSEPH [facility] : 1970 Age/S: 50 / M [address] [facility] [place] Unit #: [id number] Loc: [place] [address] 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 Acct: [id number] Dis Date: Status: ADM IN PHONE #: [phone] Exam Date: 02/25/2020 1034 FAX #: Reason: abdominal distention EXAMS: CPT: [id number] XR ABDOMEN 1 V 49915 Fluoro Time: DAP (Gy m2): Air Kerma (mGy): <Continued&g t; Technologist: RT Prashant(R) Trnscb Date/Time: 02/25/2020 (067) Anya Orig PrintD/T: S: 02/25/2020 (3286) PAGE 2 Signed ReportCOMPREHENSIVE METABOLIC [id number] 08:20:00 Test Item Value Reference Range Interpretation [...] 50-136 L TOTAL (test code = ALKP) [id number] 08:20:00 Test Item Value Reference Range Interpretation Comments MAGNESIUM (test code = MAG) 2.2 MG/DL 1.8-2.4 N THYROID STIMULATING [id number] 08:20:00 Test Item Value Reference Range Interpretation Comments THYROID STIMULATING HORMONE 5.430 mcIU/ML 0.340-4.820 H (test code = TSH) CBC W/AUTO [id number] 07:55:00 Test Item Value Reference Range Interpretation [...] N NRBC#) UA RFLX MICR CULT IF [id number] 12:29:00 Test Item Value Reference Range Interpretation [...] culture: Suprapubic PainUA RFLX MICR CULT IF [id number] 12:29:00 Test Item Value Reference Range Interpretation [...] for culture: Suprapubic PainCOVID 19 Asymptomatic IH [id number] 22:09:00 Test Item Value Reference Range Interpretation [...] tent with COVID-19. - CT ABD PELVIS W/[id number] 21:10:00 Name: DORA JOSEPH [facility] : 1970 Age/S: 50 / M [address] Unit #: [id number] Loc: [place] [address] Phys: Evin Castellanos MD Acct: [id number] Dis Date: Status: REG ER PHONE #: [phone] Exam Date: 02/23/2020 204 FAX #: Reason: diffuse abdomen pain and distention EXAMS: CPT: [id number] CT ABD PELVIS W/CONT 24553 EXAM: - CT ABD PELVIS W/CONT LOCATION: [...] Report (CONTINUED) Name: DORA JOSEPH [facility] : 1970 Age/S: 50 / M [address] Unit #: [id number] Loc: [place] [address] Phys: Evin Castellanos MD Acct: [id number] Dis Date: Status: REG ER PHONE #: [phone] Exam Date: 02/23/20202047 FAX #: Reason: diffuse abdomen pain and distention EXAMS: CPT: [id number] CT ABD PELVIS W/CONT 08961 <Continued> CT. No bowel wall thickening or [...] by: Marybel José M.D. CC: Susana Meza BRANCH SERVICE REPRESENTATIVE; Carl Luevano MD Technologist:Rudy Zuniga, RT(R)(CT)(MRI) CTDI: DLP: Trnscb Date/Time: 02/23/2020 (2109) GarettTH15 Orig Print D/T: S: 02/23/2020 (2112) PAGE 2 Signed Report- XR CHEST 1 [id number] 21:03:00 Name: DORA JOSEPH [facility] : 1970 Age/S: 50 / M [address] Unit #: [id number] Loc: [place] [address] Phys: Evin Castellanos MD Acct: [id number] Dis Date: Status: REG ER PHONE #: [phone] Exam Date: 02/23/20202055 FAX #: Reason: Code Sepsis EXAMS: CPT: [id number] XR CHEST 1 V 72644 Fluoro Time: DAP (Gy m2): Air Kerma [...] by: Monica Quijano MD CC: Susana Meza BRANCH SERVICE REPRESENTATIVE; Carl Luevano MD PAGE1 Signed Report Name: DORA JOSEPH [facility] : 1970 Age/S: 50 / M [address] Unit #: [id number] Loc: [place] [address] Phys: Evin Castellanos MD Acct: [id number] Dis Date: Status: REG ER PHONE #: [phone] Exam Date: 02/23/20202055 FAX #: Reason: Code Sepsis EXAMS: CPT: [id number] XR CHEST 1 V 37464 Fluoro Time: DAP (Gy m2): Air Kerma (mGy): <Continued> Technologist: Rudy Zuniga RT(R)(CT)(MRI) Trnscb Date/Time: 02/23/2020 (2102) t.SDR.CLW Orig Print D/T: S: 02/23/2020 (9713) PAGE 2 Signed ReportBASIC METABOLIC PANEL 2020-02-23 [...] 8.5-10.1 N Completed by Nursing: NOHEPATIC FUNCTION [id number] 20:02:00 Test Item Value Reference Range Interpretation [...] N code = ALKP) Completed by Nursing: [id number] 20:02:00 Test Item Value Reference Range Interpretation Comments LIPASE (test code = LIP) 97 Unit/L 114-286 L Completed by Nursing: [id number] 20:02:00 Test Item Value Reference Range Interpretation [...] brittani yby method. Completed by Nursing: NOLACTIC [id number] 19:59:00 Test Item Value Reference Range Interpretation Comments LACTIC ACID (test code = LACT) 1.2 mmol/L 0.4-2.0 N CBC W/AUTO [id number] 19:46:00 Test Item Value Reference Range Interpretation [...] CRITERIA = MDIFF) - XR ABDOMEN 2 [id number] 06:22:00 Name: DORA JOSEPH [facility] : 1970 Age/S: 50 / M [address] Unit #: [id number] Loc: [place] [address] Phys: León Robertson MD Acct: [id number] Dis Date: Status: ADM IN PHONE #: [phone] Exam Date: 02/19/2020 0440 FAX #: Reason: megacolon EXAMS: CPT: [id number] XR ABDOMEN 2 V 49298 Fluoro Time: DAP (Gy m2): Air Kerma [...] M.D. CC: León Robertson MD; Coco Nova MDPAGE 1 Signed Report Name: DORA JOSEPH [facility] : 1970 Age/S: 50 / M [address] Unit #: [id number] Loc: [place] [address] Phys: León Robertson MD Acct: [id number] DisDate: Status: ADM IN PHONE #: [phone] Exam Date: 02/19/2020 0440 FAX #: Reason: megacolon EXAMS: CPT: [id number] XR ABDOMEN 2 V 16679 Fluoro Time: DAP (Gy m2): Air Kerma (mGy): <Continued>Technologist: Carrie Barnett, RT(R)(CT) Trnscb Date/Time: 02/19/2020 (06) tDARWINRLisethAL7 Orig Print D/T: S: 02/19/2020 (0648) PAGE 2 Signed ReportBASIC METABOLIC [id number] 05:52:00 Test Item Value Reference Range Interpretation [...] CA) 8.5 MG/DL 8.5-10.1 N CBC W/AUTO [id number] 05:40:00 Test Item Value Reference Range Interpretation [...] NO DIFF/SCN CRITERIA = MDIFF) BASIC METABOLIC [id number] 06:52:00 Test Item Value Reference Range Interpretation [...] CA) 8.3 MG/DL 8.5-10.1 L CBC W/AUTO [id number] 06:39:00 Test Item Value Reference Range Interpretation [...] DIFF/SCN CRITERIA = MDIFF) Coronavirus 2018 nCoV [id number] 05:35:00 Test Item Value Reference Range Interpretation [...] tent with COVID-19. - XR ABDOMEN 1 [id number] 07:32:00 Name: DORA JOSEPH [facility] : 1970 Age/S: 49 / M [address] Unit #: [id number] Loc: [place] [address] Phys: Jay Mayo MD Acct: [id number] Dis Date: Status: ADM IN PHONE #: [phone] Exam Date: 01/10/2020 0658 FAX #: Reason: follow up colonic ileus EXAMS: CPT: [id number] XR ABDOMEN 1 V 79208 Fluoro Time: DAP (Gy m2): Air Kerma [...] Signed Report Name: DORA JOSEPH [facility] : 1970 Age/S: 49 / M [address] Unit #: [id number] Loc: [place] [address] Phys: Jay Mayo MD Acct: [id number] Dis Date: Status: ADM IN PHONE #: [phone] Exam Date: 01/10/2020 0658FAX #: Reason: follow up colonic ileus EXAMS: CPT: [id number] XR ABDOMEN 1 V 21878 Fluoro Time: DAP (Gy m2): Air Kerma (mGy): <Continued> Technologist: Bakari De Leon RT(R)(CT) Trnscb Date/Time: 01/10/2020 (731) tJUDSONCB5 Orig Print D/T: S: 01/10/2020 (0736) PAGE 2 Signed ReportCOMPREHENSIVE METABOLIC [id number] 05:56:00 Test Item Value Reference Range Interpretation [...] TOTAL (test code = ALKP) CBC W/AUTO [id number] 05:42:00 Test Item Value Reference Range Interpretation [...] = NO DIFF/SCN CRITERIA MDIFF) BASIC METABOLIC [id number] 06:59:00 Test Item Value Reference Range Interpretation [...] code = CA) 8.5 MG/DL 8.5-10.1 N [id number] 06:59:00 Test Item Value Reference Range Interpretation Comments MAGNESIUM (test code = MAG) 2.2 MG/DL 1.8-2.4 PROTHROMBIN [id number] 06:39:00 Test Item Value Reference Range Interpretation Comments PT PATIENT (test code = PTP) 13.1 SECONDS 9.3-12.9 H INTERNATIONAL NORMAL RATIO 1.16 INR Unit 0.8-1.2 N (test code = INR) CBC W/AUTO [id number] 06:22:00 Test Item Value Reference Range Interpretation [...] DIFF/SCN CRITERIA MDIFF) - XR ABDOMEN 1 [id number] 05:39:00 Name: DORA JOSEPH [facility] : 1970 Age/S: 49 / M [address] Unit #: [id number] Loc: [place] [address] 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 Acct: [id number] Dis Date: Status: ADM IN PHONE #: [phone] Exam Date: 01/09/2020522 FAX #: Reason: colonic ileus/obstruction EXAMS: CPT: [id number] XR ABDOMEN 1 V 60554 Fluoro Time: DAP (Gy m2): Air Kerma [...] PAGE 1 Signed Report Name: DORA JOSEPH [facility] : 1970 Age/S: 49 / M [address] [facility] Unit #: [id number] Loc: [place] [address] 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 Acct: [id number] Dis Date: Status: ADM IN PHONE #: [phone] Exam Date: 01/09/2020522 FAX #: Reason: colonic ileus/obstruction EXAMS: CPT: [id number] XR ABDOMEN1 V 65764 Fluoro Time: DAP (Gy m2): Air Kerma (mGy): <Continued> Technologist: Carrie Barnett, RT(R)(CT) Trnscb Date/Time: 01/09/2020 (0539) tJUDSONFC Orig Print D/T: S: 01/09/2020 (0542) PAGE2 Signed ReportCoronavirus 2019 nCoV [id number] 22:38:00 Test Item Value Reference Range Interpretation Comments Coronavirus 2019 nCoV Bedside (test Negative Negative code = [id number]) Emergent procedure? YESCoronavirus 2019 nCoV [id number] 22:38:00 Test Item Value Reference Range Interpretation Comments Coronavirus 2019 nCoV Bedside (test Negative Negative code = [id number]) Emergent procedure? YESBASIC METABOLIC [id number] 18:42:00 Test Item Value Reference Range Interpretation [...] CA) 8.5 MG/DL 8.5-10.1 N CBC W/AUTO [id number] 10:50:00 Test Item Value Reference Range Interpretation [...] = NO DIFF/SCN CRITERIA MDIFF) COMPREHENSIVE METABOLIC [id number] 10:46:00 Test Item Value Reference Range Interpretation [...] 50-136 N TOTAL (test code = ALKP) [id number] 10:46:00 Test Item Value Reference Range Interpretation Comments MAGNESIUM (test code = MAG) 2.6 MG/DL 1.8-2.4 H COMPREHENSIVE METABOLIC [id number] 10:34:00 Test Item Value Reference Range Interpretation [...] TOTAL (test Unit/L 50-136 code = ALKP) [id number] 10:34:00 Test Item Value Reference Range Interpretation Comments MAGNESIUM (test code = MAG) MG/DL 1.8-2.4 - XR ABDOMEN 1 [id number] 08:28:00 Name: DORA JOSEPH [facility] : 1970 Age/S: 49 / M [address] [facility] Unit #: [id number] Loc: [place] [address] Phys: Yas Edwards MD Acct: [id number] Dis Date: Status: ADM IN PHONE#: [phone] Exam Date: 01/08/2020509 FAX #: Reason: ileus EXAMS: CPT: [id number] XR ABDOMEN 1 V 38165 Fluoro Time: DAP (Gy m2): Air Kerma [...] PAGE 1 Signed Report Name: DORA JOSEPH [facility] : 1970 Age/S: 49 / M [address] [place] [address] Unit #: [id number] Loc: [place] [address] Phys: Yas Edwards MD Acct: [id number] Dis Date: Status: ADM IN PHONE #: [phone] Exam Date: 01/08/2020509 FAX #:Reason: ileus EXAMS: CPT: [id number] XR ABDOMEN 1 V 08698 Fluoro Time: DAP (Gy m2): Air Kerma (mGy): <Continued> Technologist: Carrie Barnett, RT(R)(CT); ... Trnscb Date/Time: 01/08/2020 (827) tDARWINR.JBRAN Orig Print D/T: S: 01/08/2020 (31) PAGE 2 Signed ReportCOMPREHENSIVE METABOLIC [id number] 07:08:00 Test Item Value Reference Range Interpretation [...] 50-136 L TOTAL (test code = ALKP) [id number] 07:08:00 Test Item Value Reference Range Interpretation Comments MAGNESIUM (test code = MAG) 1.3 MG/DL 1.8-2.4 L COMPREHENSIVE METABOLIC [id number] 05:16:00 Test Item Value Reference Range Interpretation [...] 50-136 L TOTAL (test code = ALKP) [id number] 05:16:00 Test Item Value Reference Range Interpretation Comments MAGNESIUM (test code = MAG) 1.3 MG/DL 1.8-2.4 L CBC W/AUTO [id number] 05:02:00 Test Item Value Reference Range Interpretation [...] (test code = NO DIFF/SCN CRITERIA MDIFF) [id number] 16:51:00 Test Item Value Reference Range Interpretation Comments MAGNESIUM (test code = MAG) 2.3 MG/DL 1.8-2.4 N FE W/TOTAL IRON BINDING CAP.2020-01-07 16:51:00 Test Item Value Reference Range Interpretation Comments SERUM IRON (test code = IRON) 38 mcG/DL 65-175 L TOTAL IRON BINDING CAPACITY (test 322 mcG/DL 250-450 N code = TIBC) IRON SATURATION (test code = 12 % calc 12-57 N FESAT) [id number] 16:51:00 Test Item Value Reference Range Interpretation Comments FERRITIN (test code = DAVID) 17.6 NG/ML 5.0-323.0 N CALCIUM [id number] 16:50:00 Test Item Value Reference Range Interpretation Comments CALCIUM IONIZED (test code = NAVEED) 1.12 mmol/L 1.12-1.32 N - XR ABDOMEN 1 [id number] 10:29:00 Name: DORA JOSEPH [facility] : 1970 Age/S: 49 / M [address] [facility] Unit #: [id number] Loc: [place] [address] Phys: Verona Frost PA-C Acct: [id number] Dis Date: Status: ADM IN PHONE #: [phone] Exam Date: 01/07/2020711 FAX #: Reason: reassess SBO EXAMS: CPT: [id number] XR ABDOMEN 1 V 84498 Fluoro Time: DAP (Gy m2): Air Kerma [...] Frost PAGE 1 Signed Report [facility]: [facility] 1970 Age[facility] 49 / M [address] [place] [address] Unit #: [id number] Loc: [place] [address] Phys: Verona Frost PA-C Acct: [id number] Dis Date: Status: ADM IN PHONE #: [phone] Exam Date: 01/07/2020 0712 FAX #: Reason: reassess SBO EXAMS: CPT: [id number] XR ABDOMEN 1 V 49070 Fluoro Time: DAP (Gy m2): Air Kerma (mGy): <Continued> Technologist: Bakari De Leon RT(R)(CT) Trnscb Date/Time: 01/07/2020 (1029) Katelynn Orig Print D/T: S: 01/07/2020 (7423) PAGE 2 Signed ReportBASIC METABOLIC PANEL 2020-01-07 [...] CA) 5.4 MG/DL 8.5-10.1 LL CBC W/AUTO [id number] 06:49:00 Test Item Value Reference Range Interpretation [...] = NO DIFF/SCN CRITERIA MDIFF) COMPREHENSIVE METABOLIC [id number] 06:10:00 Test Item Value Reference Range Interpretation [...] TOTAL (test code = ALKP) CBC W/AUTO [id number] 05:52:00 Test Item Value Reference Range Interpretation [...] DIFF/SCN CRITERIA MDIFF) - XR ABDOMEN 1 [id number] 01:30:00 Name: DORA JOSEPH [facility] : 1970 Age/S: 49 / M [address] [address] Unit #: [id number] Loc: [place] [address] Phys: Ted Coleman NP Acct: [id number] Dis Date: Status: ADM IN PHONE #: [phone] Exam Date: 01/06/202099 FAX #: Reason: NG Tube Placement Verification EXAMS: CPT: [id number] XR ABDOMEN 1 V 07475 Fluoro Time: DAP (Gy m2): Air Kerma [...] PAGE 1 Signed Report Name: DORA JOSEPH [facility] : 1970 Age/S: 49 / M [address] [place] [address] Unit #: [id number] Loc: [place] [address] Phys: Ted Coleman BRANCH SERVICE REPRESENTATIVE Acct: [id number] Dis Date: Status: ADM IN PHONE #: [phone] Exam Date: 01/06/2020 010 FAX #: Reason: NG Tube Placement Verification EXAMS: CPT: [id number] XR ABDOMEN 1 V 34407 Fluoro Time: DAP (Gy m2): Air Kerma (mGy): <Continued> Technologist: RT Tatum(R) Trnscb Date/Time: 01/06/2020(129) Herrera Orig Print D/T: S: 01/06/2020 (132) PAGE 2 Signed Report- CT ABD PELVIS W/O [id number] 19:42:00 [place]: EM St: REG -- Name: DORA JOSEPH [facility] : 1970 Age/S: 49/M [address] Unit: [id number] Loc: [place], [place] Phys: [place] [address] Acct: [id number] Dis Date: Status: REG ER PHONE #: [phone] Exam Date: 12/13/20191924 FAX #: [phone] Reason: pain EXAMS: CPT CODE: [id number] CT ABD PELVIS W/O CONT 18659 Examination: CT scan abdomen and pelvis without [...] by: SHANEL EDWARDS CC: Technologist: SUJATA [facility]MANZAR [facility] Dt/Tm: 12/13/2019 (1941) t.SDR.VR5 Orig Parvin nt D/T: S: 12/13/2019 (5 PAGE 1 Signed ReportBASIC METABOLIC [id number] 18:49:00 Test Item Value Reference Range Interpretation [...] code = CA) 8.6 mg/dl 8.0-10.5 N [id number] 18:49:00 Test Item Value Reference Range Interpretation Comments LIPASE (test code = LIP) 97 Units/L 65.0-230.0 N CBC W/AUTO [id number] 18:38:00 Test Item Value Reference Range Interpretation [...] BA#) 0.0 K/mm3 0.0-0.2 N - XR [facility] 1 [id number] 18:36:00 [place]: St: PRE -- Name: DORA JOSEPH [facility] : 1970 Age/S: 49/M [address] [facility] [address] Unit#: [id number] Loc: [place], [place] Phys: [place] [address] Acct: [id number] Dis Date: Status: PRE ER PHONE #: [phone] Exam Date: 12/13/20191821 FAX #: [phone] Reason: SOB EXAMS: CPT CODE: [id number] XR CHEST 1 V 79315 Examination: One view chest x-ray Location code: H60 Comparison: None Discussion: Clinical history is remarkable for shortness of breath and weakness. Heartis normal in size. Lungs are clear of consolidating infiltrates. No effusions identified. There is significant distention of the colon. Impression: 1. Normal one view chest x-ray. 2. Colonic distention. at 1836 Reported and signed by: SHANEL EDWARDSCC: Technologist: AMBER GENTILE Trnscrd Date/Time/By: 12/13/2019 (1835) : By: GarettVR5 PAGE 1 Signed Report [place]: St: PRE -------- Name: DORA JOSEPH [facility] : 1970 Age/S: 49/M [address] [facility] Unit #: [id number] Loc: [place], [place]: [place] [address] Acct: [id number] Date: Status: PRE ER PHONE #: [phone] Exam Date: 12/13/20191821 FAX #: [phone] Reason: SOB EXAMS: CPT CODE: [id number] XR CHEST 1 V 16634 (Continued) Orig Print D/T: S: 12/13/2019 (183)PAGE 2 Signed ReportCBC W/PLT COUNT & AUTO [id number] 08:02:00 Test Item Value Reference Range Interpretation [...] Received comment: User comments: Slide comments:BASIC METABOLIC [id number] 07:34:00 Test Item Value Reference Range Interpretation [...] S NOT APPLICABLE FOR DIALYSIS PATIEN TS. [id number] 07:26:00 Test Item Value Reference Range Interpretation Comments PHOSPHORUS (BEAKER) (test code = 3.1 mg/dL 2.3-4.7 604) [id number] 07:26:00 Test Item Value Reference Range Interpretation Comments MAGNESIUM (BEAKER) (test code = 1.6 mg/dL 1.6-2.6 627) RAD, ABDOMEN/KUB, 1 VIEW [id number] 07:04:00Reason for exam:->ileusFINAL REPORT Abdomen , one [...] MDReport Verified Date/Time: 04/03/2019 07:04:46 Reading Location: [facility] C013X Ortho Consult Reading Room BASIC METABOLIC [id number] 06:47:00 Test Item Value Reference Range Interpretation [...] code = 413) URINALYSIS WITH MICROSCOPIC IF [id number] 22:01:00 Test Item Value Reference Range Interpretation [...] 463) SOURCE(BEAKER) (test code = 2795) URINALYSIS [id number] 22:01:00 Test Item Value Reference Range Interpretation Comments RBC UA (BEAKER) (test code = 519) 18 /HPF WBC UA (BEAKER) (test code = 520) 1 /HPF CALCIUM OXALATE CRYSTALS (BEAKER) Occasional (test code = 518) [id number] 05:49:00 Test Item Value Reference Range Interpretation Comments PHOSPHORUS (BEAKER) (test code = 2.5 mg/dL 2.3-4.7 604) [id number] 05:49:00 Test Item Value Reference Range Interpretation Comments MAGNESIUM (BEAKER) (test code = 1.7 mg/dL 1.6-2.6 627) BASIC METABOLIC [id number] 05:49:00 Test Item Value Reference Range Interpretation [...] (BEAKER) (test code = 413) BASIC METABOLIC [id number] 06:19:00 Test Item Value Reference Range Interpretation [...] S NOT APPLICABLE FOR DIALYSIS PATIEN TS. [id number] 06:10:00 Test Item Value Reference Range Interpretation Comments MAGNESIUM (BEAKER) 1.8 mg/dL 1.6-2.6 Specimen slightly (test code = 627) hemolyzed [id number] 06:10:00 Test Item Value Reference Range Interpretation [...] (BEAKER) (test code = 413) BASIC METABOLIC [id number] 04:57:00 Test Item Value Reference Range Interpretation [...] S NOT APPLICABLE FOR DIALYSIS PATIEN TS. [id number] 04:55:00 Test Item Value Reference Range Interpretation Comments PHOSPHORUS (BEAKER) (test code = 2.6 mg/dL 2.3-4.7 604) [id number] 04:55:00 Test Item Value Reference Range Interpretation Comments MAGNESIUM (BEAKER) (test code = 1.8 mg/dL 1.6-2.6 627) CT, [id number] 14:16:00FINAL REPORT TECHNIQUE: CT of the abdomen [...] Kim MDReport Verified Date/Time: 03/29/2019 14:16:01Reading Location: [address] Body Reading Room , ABDOMEN/KUB, 1 VIEW [id number] 10:23:00Reason for exam:->evaluate ileusFINAL REPORT Technique: Supine [...] MDReport Verified Date/Time: 03/29/2019 10:23:29 Reading Location: [place] [...] WBC 0-0 (BEAKER) (test code = 413) [id number] 06:20:00 Test Item Value Reference Range Interpretation Comments PHOSPHORUS (BEAKER) (test code = 2.6 mg/dL 2.3-4.7 604) [id number] 06:20:00 Test Item Value Reference Range Interpretation Comments MAGNESIUM (BEAKER) (test code = 2.0 mg/dL 1.6-2.6 627) BASIC METABOLIC [id number] 06:20:00 Test Item Value Reference Range Interpretation [...] TS. RAD, ABDOMEN SERIES W/ UPRIGHT PA [id number] 22:18:00Reason for exam:- >eval ileusFINAL REPORT CLINICAL [...] with CT abdomen pelvis. Signed: Mari Bethea [facility] Verified Date/Time: 03/28/2019 22:18:50 RAD, ABDOMEN/KUB, 1 VIEW [id number] 11:23:00Reason for exam:->abdominal distensionShould this be performed [...] Cruz Verified Date/Time: 03/28/2019 11:23:34 Reading Location: [facility] Radiology Reading Room TISSUE [id number] 09:00:00Surgical Pathology Report Case: [id number] Authorizing Provider: Graciela Garrison MD Collected: 03/25/2019 1133 Ordering Location: [facility] PERI[facility] Received: 03/25/2019 1527 SERVICES Pathologist: [...] NEGATIVEFOR MALIGNANCY Signing Pathologist Direct Phone Line: [phone] signed by Jordan Celaya MD on 03/28/2019 at 9:00 [id number] and postop diagnosis: ileostomy statusA. End ileostomy; [...] nodes are not identified in the mesentery. Second Steward sections are submitted. Section code: A, payable representative section of each end of first mentioned segment of small bowel; A2, payable representative of first mentioned segment of small bowel mucosa; A3, area of hemorrhagic mesentery of second mentioned segment of mucosa; A4, payable representative of hemorrhagic mucosa at open end of second portion of small bowel; A5, payable representative of stapled margin from second mentioned [...] 0.2 cm. No gross lesions are identified. Second Steward sections are submitted. Section code: B1, proximal margin en face and tip; B2, payable representative cross section. CG/pl Performed.[id number] 06:23:00 Test Item Value Reference Range Interpretation Comments PHOSPHORUS (BEAKER) (test code = 2.7 mg/dL 2.3-4.7 604) [id number] 06:23:00 Test Item Value Reference Range Interpretation Comments MAGNESIUM (BEAKER) (test code = 1.9 mg/dL 1.6-2.6 627) BASIC METABOLIC [id number] 06:23:00 Test Item Value Reference Range Interpretation [...] S NOT APPLICABLE FOR DIALYSIS PATIEN TS. [id number] 08:20:00 Test Item Value Reference Range Interpretation Comments PHOSPHORUS (BEAKER) (test code = 2.6 mg/dL 2.3-4.7 604) [id number] 08:20:00 Test Item Value Reference Range Interpretation Comments MAGNESIUM (BEAKER) (test code = 1.8 mg/dL 1.6-2.6 627) BASIC METABOLIC [id number] 08:20:00 Test Item Value Reference Range Interpretation [...] S NOT APPLICABLE FOR DIALYSIS PATIEN TS. [id number] 06:06:00 Test Item Value Reference Range Interpretation Comments PHOSPHORUS (BEAKER) (test code = 4.1 mg/dL 2.3-4.7 604) [id number] 06:06:00 Test Item Value Reference Range Interpretation Comments MAGNESIUM (BEAKER) (test code = 1.8 mg/dL 1.6-2.6 627) BASIC METABOLIC [id number] 06:06:00 Test Item Value Reference Range Interpretation [...] S NOT APPLICABLE FOR DIALYSIS PATIEN TS. [id number] 06:03:00 Test Item Value Reference Range Interpretation Comments PHOSPHORUS (BEAKER) (test code = 4.2 mg/dL 2.3-4.7 604) [id number] 06:03:00 Test Item Value Reference Range Interpretation Comments MAGNESIUM (BEAKER) (test code = 2.0 mg/dL 1.6-2.6 627) BASIC METABOLIC [id number] 06:03:00 Test Item Value Reference Range Interpretation [...] WBC 0-0 (BEAKER) (test code = 413) [id number] 05:52:00 Test Item Value Reference Range Interpretation Comments PHOSPHORUS (BEAKER) (test code = 4.2 mg/dL 2.3-4.7 604) [id number] 05:52:00 Test Item Value Reference Range Interpretation Comments MAGNESIUM (BEAKER) (test code = 1.9 mg/dL 1.6-2.6 627) BASIC METABOLIC [id number] 05:52:00 Test Item Value Reference Range Interpretation [...] S NOT APPLICABLE FOR DIALYSIS PATIEN TS. [id number] 06:51:00 Test Item Value Reference Range Interpretation Comments PHOSPHORUS (BEAKER) (test code = 4.3 mg/dL 2.3-4.7 604) [id number] 06:51:00 Test Item Value Reference Range Interpretation Comments MAGNESIUM (BEAKER) (test code = 2.0 mg/dL 1.6-2.6 627) BASIC METABOLIC [id number] 06:51:00 Test Item Value Reference Range Interpretation [...] 0-0 (BEAKER) (test code = 413) TISSUE [id number] 11:50:00Surgical Pathology Report Case: [id number] Authorizing Provider: Mela Larson MD Collected: 03/18/2019 1827 Ordering Location: [facility] Received: 03/21/2019 0823 SERVICES Pathologist: Jordan Celaya MD Specimen: Small Bowel, NOS A. SMALL BOWEL, ILEOSTOMY PROLAPSE, TAKEDOWN: - ANASTOMOSIS SITE WITH ACTIVE CHRONIC INFLAMMATION AND FOCAL ISCHEMIC CHANGES - MUCOSAL RESECTION MARGINS, NEGATIVE FOR MALIGNANCY - ONE BENIGN LYMPH NODE (0/1) - NEGATIVE FOR DYSPLASIA OR MALIGNANCY Signing Pathologist Direct Phone Line: [phone] signed by Jordan Celaya MD on 03/22/2019 at 11:50 [id number] of ileostomyReceived in a container labeled "small [...] 0.5 to 1.2 cm in greatest dimension. Second Steward sections are submitted as follows: A1-A2, mucosal resection margin, en face; A3-A6, payable representative sections of the possible ostomy stump; A7-A11, serial payable representative sections from mucosal resection margin to the possible ostomy stump; A12, two lymph nodes. TH/plPerformed.[id number] 06:58:00 Test Item Value Reference Range Interpretation Comments PHOSPHORUS (BEAKER) (test code = 3.8 mg/dL 2.3-4.7 604) [id number] 06:58:00 Test Item Value Reference Range Interpretation Comments MAGNESIUM (BEAKER) (test code = 2.0 mg/dL 1.6-2.6 627) BASIC METABOLIC [id number] 06:58:00 Test Item Value Reference Range Interpretation [...] PATIEN TS. CBC W/PLT COUNT & AUTO [id number] 05:42:00 Test Item Value Reference Range Interpretation [...] PERCENT (BEAKER) (test code = 2801) [place], [id number] 17:42:00Reason for exam:->evaluate for colon stricture as [...] Lopezort Verified Date/Time: 03/21/2019 17:42:21 Reading Location: [address] Reading Room [id number] 03:58:00 Test Item Value Reference Range Interpretation Comments PHOSPHORUS (BEAKER) (test code = 3.0 mg/dL 2.3-4.7 604) [id number] 03:58:00 Test Item Value Reference Range Interpretation Comments MAGNESIUM (BEAKER) (test code = 2.0 mg/dL 1.6-2.6 627) BASIC METABOLIC [id number] 03:58:00 Test Item Value Reference Range Interpretation [...] PATIEN TS. CBC W/PLT COUNT & AUTO [id number] 03:20:00 Test Item Value Reference Range Interpretation [...] (BEAKER) (test code = 2801) BASIC METABOLIC [id number] 06:26:00 Test Item Value Reference Range Interpretation [...] S NOT APPLICABLE FOR DIALYSIS PATIEN TS. [id number] 06:05:00 Test Item Value Reference Range Interpretation Comments PHOSPHORUS (BEAKER) (test code = 2.2 mg/dL 2.3-4.7 L 604) [id number] 06:05:00 Test Item Value Reference Range Interpretation Comments MAGNESIUM (BEAKER) (test code = 2.0 mg/dL 1.6-2.6 627) CBC W/PLT COUNT & AUTO [id number] 05:25:00 Test Item Value Reference Range Interpretation [...] 0-1 PERCENT (BEAKER) (test code = 2801) [id number] 04:31:00 Test Item Value Reference Range Interpretation Comments PHOSPHORUS (BEAKER) (test code = 3.7 mg/dL 2.3-4.7 604) [id number] 04:31:00 Test Item Value Reference Range Interpretation Comments MAGNESIUM (BEAKER) (test code = 1.9 mg/dL 1.6-2.6 627) BASIC METABOLIC [id number] 04:31:00 Test Item Value Reference Range Interpretation [...] PATIEN TS. CBC W/PLT COUNT & AUTO [id number] 04:15:00 Test Item Value Reference Range Interpretation [...] 0-1 PERCENT (BEAKER) (test code = 2801) [id number] 06:41:00 Test Item Value Reference Range Interpretation Comments PHOSPHORUS (BEAKER) (test code = 3.1 mg/dL 2.3-4.7 604) [id number] 06:41:00 Test Item Value Reference Range Interpretation Comments MAGNESIUM (BEAKER) (test code = 1.9 mg/dL 1.6-2.6 627) BASIC METABOLIC [id number] 06:41:00 Test Item Value Reference Range Interpretation [...] PATIEN TS. CBC W/PLT COUNT & AUTO [id number] 06:36:00 Test Item Value Reference Range Interpretation [...] PERCENT (BEAKER) (test code = 2801) CT, [id number] 17:04:00No PO contrastFINAL REPORT ABDOMINAL AND PELVIS [...] MDReport Verified Date/Time: 03/17/2019 17:04:19 Reading Location: [address] Body Reading Room XR ABDOMEN 2 [id number] 09:03:45XR ABDOMEN 2 VIEWSLOCATION: [id number]: Colstomy ProlapseCOMPARISON: Chest radiograph 04/15/2017, CT of [...] Nonspecific, nonobstructive bowel gas pattern.XR CHEST 1 [id number] 11:32:15EXAM: CHEST ONE VIEWINDICATION: Chest painCOMPARISON: None availableTECHNIQUE: AP view of the chest.FINDINGS: The cardiomediastinal silhouette is normal. The lungs are clearbilaterally. No pneumothoraxor pleural effusion is identified. Theosseous structures are unremarkable.IMPRESSION: No acute cardiopulmonary process.LOCATION: [id number] Type and [id number] 21:21:00 Test Item Value Reference Range Interpretation Comments ABO type (test code = ABO) O Rh Type (test code = RH) Positive Comprehensive Metabolic [id number] 20:36:00 Test Item Value Reference Range Interpretation [...] been validated by e MDRD study and rashi d be interpretedwith caution.eGFR Re sult Interpretation: eGFR > or = 60 is in t he Normal RangeeGF R < 60 may mean kidney diseaseeGFR < 1 5 may mean kidney failureRange s recommended by the National Kid[employer] Foundation,http ://nkd ep.nih.gov Alcohol/Ethanol, [id number] 20:36:00 Test Item Value Reference Range Interpretation Comments Alcohol, Ethyl <0.01 g/dL 0.00-0.01 N Intoxicated 0 .080 g/dL (test code = ETOH) or more Prothrombin [id number] 20:00:00 Test Item Value Reference Range Interpretation Comments PT (test code = PT) 10.10 seconds 9.78-13.35 N INR (test code = INR) 0.88 Ratio 0.6-1.2 N Partial Thromboplastin [id number] 20:00:00 Test Item Value Reference Range Interpretation Comments aPTT (test code = PTT) 31.50 seconds 24.39-37.25 N CBC with [id number] 19:50:00 Test Item Value Reference Range Interpretation [...] code = ALYMPH) 2.2 K/cumm 0.5-4.6 N [place] Abs (test code = AMONO) 0.4 K/cumm 0.0-1.2 N Eos Abs (test code = AEOS) 0.17 K/cumm 0.00-0.74 N Baso Abs (test code = ABASO) 0.0 K/cumm 0.00-0.21 N 84219& PELVIS W/O [id number] 17:36:28CT ABDOMEN AND PELVIS WITHOUT CONTRAST.CLINICAL HISTORY: [...]
[2022-09-25 18:53] VITALS: BP 124/85; TEMP 97.6; O2SAT 96
== END 2022-09-25 18:49 | disposition home or self-care (01) ==
LOC: ER 18:02
DX: K94.09 Other complications of colostomy (principal)
CPT/HCPCS: 99281

== ENCOUNTER 2022-10-01 14:07 | Observation (INO) | payer SELFPAY ==
--- OUTSIDE RECORDS SUMMARY | 2022-10-01 14:25 | XMS REPORT | Continuity of Care Document ---
:1970 Author Organization [facility] t Address [facility] [address] [place] [address] Support Name Relationship Address Phone UPDATE, [place] [address] [place], [place] [address] NONE, [place] [address] JOYCE MARION Unavailable [phone] NO, NAME SELF . [phone] [place] [address] FLACO HOPE Unavailable [address] [facility] [phone] [place] [address] NONE, NONE Unavailable [address] [place] [address] NONE, NONE Unavailable [address] [phone] [place] [address] NONE, OTHER Unavailable NO KNOWN ADDRESS [phone] [place] [address] NONE, OTHER Unavailable [address] [phone] [place] [address] NONE, OTHER SA [address] [facility] [phone] [place] [address] NONE, OTHER [place] [address] [place] [address] JOYCE LEIJA Unavailable UNK [phone] [place] [address] NONE, PERSON Unavailable [id number] [place] [address] NONE, NONE Unavailable [address] [place] [address] Care Team Providers Name Role Phone UNKNOWN, REFFERING Primary Care Physician Unavailable Coco Nova Attending Clinician Unavailable Mark Perea Attending Clinician Unavailable Steve Urias Attending Clinician Unavailable YESSI RAMOS Attending Clinician Unavailable NELSON GARCIA Attending Clinician Unavailable KENDRA CARDENAS Attending Clinician Unavailable LEÓN EARL Attending Clinician Unavailable Aryan Tello MD Attending Clinician [phone] Marty CAPONE, Dee Dee Nelson Attending Clinician Shiela CAPONE, Romie Attending Clinician Pao Barton MD Attending Clinician Anya CAPONE, León Shaw Attending Clinician [phone] Teddy Carbajal MD Attending Clinician Bernabe Calvert [...] Clinician Lindsey Escobar, Steve Santana Attending Clinician [phone] KARIN BASSETT Attending Clinician Unavailable Bert [...] Unavailable MERISSA RICHARDS Admitting Clinician Unavailable Marcello Leonrad Admitting Clinician Unavailable CINDA ROTHMAN Admitting Clinician Unavailable MELA LARSON Admitting Clinician Unavailable VANIA PERAZA Admitting Clinician Unavailable Payers Payer Name Policy Type Policy Number Effective Date Expiration Date S kashif PFA EMERGENCY [id number] 2019 ADMIT 00:00:00 Problems Condition Condition Condition Status Onset Resolution Last Treating Co mments Source Name Details Category Date Date Treatment Clinician Date Lightheade Lightheade Disease Active [facility] 00 [place] Altered Altered Disease Active [facility] bowel bowel 01-19 Health eliminatio eliminatio 00:00: [...] [facility] prolapse prolapse 00:00: Medica l 00 [place] Disorder Disorder Disease Active [facility] stoma [facility] stoma 15 Health 00:00: 00 Dehydratio Dehydratio Disease Active H arris n n Health Encounter Encounter Disease Active Compa ris for ostomy for ostomy He [facility] care education education ALMA (acute ALMA (acute [...] U [facility] 6-09 [facility] 00:00: [address] No Known DA Active U 2020-08 [facility] 1-29 [facility] 00:00: d 00 [facility] No Known DA Active U [facility] 9-05 Clear s 00:00: [facility] No Known DA Active U [facility] 9-05 Clear s 00:00: [facility] No Known DA Active U [facility] 7-03 Clear s 00:00: [facility] No Known DA Active U [facility]ie 5-14 Clear s 00:00: [facility] No Known DA Active U [facility] [...] Alcohol intake 2022-02-18 2022-02-18 Current drinker of [employer] 00:00:00 00:00:00 alcohol (finding) History [facility] 2019-03-17 2019-03-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 [facility] Alcohol Comment 00:00:00 00:00:00 Medical C enter Tobacco use and 2019-03-17 2019-03-[address] [facility] exposure 00:00:00 00:00:00 [facility] History [facility] Food 2017-04-14 2017-04-14 1 [facility] Worry 00:00:00 00:00:00 History SDPA Food 2017-04-14 2017-04-14 1 [facility] Scarcity 00:00:00 00:00:00 Sex [birth year] Maged Douglas alth 00:00:00 00:00:00 Smoking Status Start Date Stop Date Source Never smoker [facility] Medications Ordered Filled Start Stop [...] intestinal ostomy loperamide 2021- No Altered 4mg Q.46739305 Take 2 Lynne (IMODIUM) 2 02-20 bowel [id number] capsules Health mg capsule 00:00: 23:59 elimination [...] intestinal ostomy loperamide 2021- No Altered 4mg Q.25344895 Take 2 Lynne (IMODIUM) 2 02-2030 bowel [id number] capsules Health mg capsule 00:00: 23:59 elimination [...] intestinal ostomy loperamide 2021- No Altered 4mg Q.76263759 Take 2 Lynne (IMODIUM) 2 02-20 bowel [id number] capsules Health mg capsule 00:00: 23:59 elimination [...] intestinal ostomy loperamide 2021- No Altered 4mg Q.54983183 Take 2 Lynne (IMODIUM) 2 02-20-30 bowel [id number] capsules Health mg capsule 00:00: 23:59 elimination [...] intestinal ostomy loperamide 2021- No Altered 4mg Q.28761586 Take 2 Lynne (IMODIUM) 2 02-20 bowel [id number] capsules Health mg capsule 00:00: 23:59 elimination [...] intestinal ostomy loperamide 2021- No Altered 4mg Q.88856637 Take 2 Lynne (IMODIUM) 2 02-20 bowel [id number] capsules Health mg capsule 00:00: 23:59 elimination [...] intestinal ostomy loperamide 2021- No Altered 4mg Q.26007757 Take 2 Lynne (IMODIUM) 2 6-03-22 bowel [id number] capsules Health mg capsule 00:00: 23:59 elimination [...] intestinal ostomy loperamide 2021- No Altered 4mg Q.29341297 Take 2 Lynne (IMODIUM) 2 02-20 bowel [id number] capsules Health mg capsule 00:00: 23:59 elimination [...] intestinal ostomy loperamide 2021- No Altered 4mg Q.97684338 Take 2 Lynne (IMODIUM) 2 02-20 bowel [id number] capsules Health mg capsule 00:00: 23:59 elimination [...] intestinal ostomy loperamide 2021- No Altered 4mg Q.63115529 Take 2 Lynne (IMODIUM) 2 02-20 bowel [id number] capsules Health mg capsule 00:00: 23:59 elimination [...] intestinal ostomy loperamide 2021- No Altered 4mg Q.97175082 Take 2 Lynne (IMODIUM) 2 02-20 bowel [id number] capsules Health mg capsule 00:00: 23:59 elimination [...] intestinal ostomy loperamide 2021- No Altered 4mg Q.97682937 Take 2 Lynne (IMODIUM) 2 02-20 bowel [id number] capsules Health mg capsule 00:00: 23:59 elimination [...] intestinal ostomy loperamide 2021- No Altered 4mg Q.22596855 Take 2 Lynne (IMODIUM) 2 02-2030 bowel [id number] capsules Health mg capsule 00:00: 23:59 elimination [...] intestinal ostomy loperamide 2021- No Altered 4mg Q.99811089 Take 2 Lynne (IMODIUM) 2 02-2030 bowel [id number] capsules Health mg capsule 00:00: 23:59 elimination [...] intestinal ostomy loperamide 2021- No Altered 4mg Q.33580123 Take 2 Lynne (IMODIUM) 2 02-20-30 bowel [id number] capsules Health mg capsule 00:00: 23:59 elimination [...] intestinal ostomy loperamide 2021- No Altered 4mg Q.45973154 Take 2 Lynne (IMODIUM) 2 02-2030 bowel [id number] capsules Health mg capsule 00:00: 23:59 elimination [...] intestinal ostomy loperamide 2021- No Altered 4mg Q.79771120 Take 2 Lynne (IMODIUM) 2 02-20-30 bowel [id number] capsules Health mg capsule 00:00: 23:59 elimination [...] intestinal ostomy loperamide 2021- No Altered 4mg Q.15851322 Take 2 Lynne (IMODIUM) 2 02-20-30 bowel [id number] capsules Health mg capsule 00:00: 23:59 elimination [...] intestinal ostomy loperamide 2021- No Altered 4mg Q.65068772 Take 2 Lynne (IMODIUM) 2 02-20-30 bowel [id number] capsules Health mg capsule 00:00: 23:59 elimination [...] intestinal ostomy loperamide 2021- No Altered 4mg Q.35033360 Take 2 Lynne (IMODIUM) 2 - 07-30 bowel [id number] capsules Health mg capsule 00:00: 23:59 elimination [...] intestinal ostomy loperamide 2021- No Altered 4mg Q.89102958 Take 2 Lynne (IMODIUM) 2 02-20-30 bowel [id number] capsules Health mg capsule 00:00: 23:59 elimination [...] intestinal ostomy loperamide 2021- No Altered 4mg Q.90323086 Take 2 Lynne (IMODIUM) 2 02-20-30 bowel [id number] capsules Health mg capsule 00:00: 23:59 elimination [...] intestinal ostomy loperamide 2021- No Altered 4mg Q.99716380 Take 2 Lynne (IMODIUM) 2 02-20 bowel [id number] capsules Health mg capsule 00:00: 23:59 elimination [...] daily nutritional Yes Malnutritio 1{packa Take 1 Ylnne supplemment [...] (METAMUCIL) 02-11 06-30 bowel t} Packet by ealt 6 [...] Lynne (METAMUCIL) 02-1130 bowel t[facility] PwPk 00:00: 00:00 elimination mouth 00 :00 due to intestinal ostomy psyllium 2021- No Altered 1{packe Take 1 Lynne (METAMUCIL) 02-11 bowel t} [facility] gram PwPk 00:00: 00:00 elimination mouth 00 :00 due to intestinal ostomy psyllium 2021- No Altered 1{packe Take 1 Lynne (METAMUCIL) 02-1130 bowel t} [facility] gram PwPk 00:00: 00:00 elimination mouth 00 :00 due to intestinal ostomy psyllium 2021- No Altered 1{packe Take 1 Lynne (METAMUCIL) 02-1130 bowel t} [facility] gram PwPk 00:00: 00:00 elimination [...] Momin rris acid, 01-21 bowel tablet by [facility] vitamin C, 00:00: 23:59 elimination mouth 250 mg 00 :00 due to daily for tablet intestinal 60 days ostomy magnesium 2021- No Altered 800mg Q.5D Take 2 H arris oxide 01-21 bowel tablets by [facility] (MAG-OX) 00:00: 23:59 elimination mouth 2 400 [...] Momin rris acid, 01-21 bowel tablet by [facility] vitamin C, 00:00: 23:59 elimination mouth 250 mg 00 :00 due to daily for tablet intestinal 60 days ostomy magnesium 2021- No Altered 800mg Q.5D Take 2 H arris oxide 01-21 bowel tablets by [facility] (MAG-OX) 00:00: 23:59 elimination mouth 2 400 [...] Momin rris acid, 01-21 bowel tablet by [facility] vitamin C, 00:00: 23:59 elimination mouth 250 mg 00 :00 due to daily for tablet intestinal 60 days ostomy magnesium 2021- No Altered 800mg Q.5D Take 2 H arris oxide 01-21 bowel tablets by [facility] (MAG-OX) 00:00: 23:59 elimination mouth 2 400 mg 00 :00 due to times (241.3 mg intestinal daily for magnesium) ostomy 60 days tablet multivitami 2021- No Altered 1{tbl} QD Take 1 Lynne n with 01-21 bowel tablet by [facility] folic acid 00:00: 23:59 elimination mouth (THERA) 400 00 :00 due to daily for mcg tablet intestinal 60 days ostomy ascorbic 2021- No Altered 250mg QD Take 1 Momin rris acid, 01-21 bowel tablet by [facility] vitamin C, 00:00: 23:59 elimination mouth 250 mg 00 :00 due to daily for tablet intestinal 60 days ostomy magnesium 2021- No Altered 800mg Q.5D Take 2 H arris oxide 01-21 bowel tablets by [facility] ([facility] 00:00: 23:59 elimination mouth 2 400 mg 00 :00 due to times (241.3 mg intestinal daily for magnesium) ostomy 60 days tablet multivitami 2021- No Altered 1{tbl} QD Take 1 Lynne n with 01-21 bowel tablet by [facility] folic acid 00:00: 23:59 elimination mouth (THERA) 400 00 :00 due to daily for mcg tablet intestinal 60 days ostomy ascorbic 2021- No Altered 250mg QD Take 1 Momin rris acid, 01-21 bowel tablet by [facility] vitamin C, 00:00: 23:59 elimination mouth 250 mg 00 :00 due to daily for tablet intestinal 60 days ostomy magnesium 2021- No Altered 800mg Q.5D Take 2 H arris oxide 01-21 bowel tablets by [facility] ([facility] 00:00: 23:59 elimination mouth 2 400 mg [...] Momin rris acid, 01-21-30 bowel tablet by [facility] vitamin C, 00:00: 23:59 elimination mouth 250 mg 00 :00 due to daily for tablet intestinal 60 days ostomy magnesium 2021- No Altered 800mg Q.5D Take 2 H arris oxide 5- 07-30 bowel tablets by [facility] (MAG-OX) 00:00: 23:59 elimination mouth 2 [...] Momin rris acid, 01-21-30 bowel tablet by [facility] vitamin C, 00:00: 23:59 elimination mouth 250 mg 00 :00 due to daily for tablet intestinal 60 days ostomy magnesium 2021- No Altered 800mg Q.5D Take 2 H arris oxide -23 03-30 bowel tablets by [facility] (MAG-OX) 00:00: 23:59 elimination mouth 2 400 [...] rris acid, 5- 07-30 bowel tablet by [facility] vitamin C, 00:00: 23:59 elimination mouth 250 mg 00 :00 due to daily for tablet intestinal 60 days ostomy magnesium 2021- No Altered 800mg Q.5D Take 2 H arris oxide 5- 07-30 bowel tablets by [facility] (MAG-OX) 00:00: 23:59 elimination mouth 2 400 mg 00 :00 due to times (241.3 mg intestinal daily for magnesium) ostomy 60 days tablet multivitami 2021- No Altered 1{tbl} QD Take 1 Lynne n with 5-30 bowel tablet by [facility] folic acid 00:00: 23:59 elimination mouth (THERA) 400 00 :00 due to daily for mcg tablet intestinal 60 days ostomy ascorbic 2021- No Altered 250mg QD Take 1 Momin rris acid, 01-21- bowel tablet by [facility] vitamin C, 00:00: 23:59 elimination mouth 250 mg 00 :00 due to daily for tablet intestinal 60 days ostomy magnesium 2021- No Altered 800mg Q.5D Take 2 H arris oxide 01-21-30 bowel tablets by [facility] (MAG-OX) 00:00: 23:59 elimination mouth 2 400 mg 00 :00 due to times (241.3 mg intestinal daily for magnesium) ostomy 60 days tablet multivitami 2021- No Altered 1{tbl} QD Take 1 Lynne n with 01-2130 bowel tablet by [facility] folic acid 00:00: 23:59 elimination mouth (THERA) 400 00 :00 due to daily for mcg tablet intestinal 60 days ostomy ascorbic 2021- No Altered 250mg QD Take 1 Momin rris acid, 01-21 bowel tablet by [facility] vitamin C, 00:00: 23:59 elimination mouth 250 mg 00 :00 due to daily for tablet intestinal 60 days ostomy magnesium 2021- No Altered 800mg Q.5D Take 2 H arris oxide 01-21-30 bowel tablets by [facility] (MAG-OX) 00:00: 23:59 elimination mouth 2 400 mg 00 :00 due to times (241.3 mg intestinal daily for magnesium) ostomy 60 days tablet multivitami 2021- No Altered 1{tbl} QD Take 1 Lynne n with 5-23 03-30 bowel tablet by [facility] folic acid 00:00: 23:59 elimination mouth (THERA) 400 00 :00 due to daily for mcg tablet intestinal 60 days ostomy ascorbic 2021- No Altered 250mg QD Take 1 Momin rris acid, 01-21-30 bowel tablet by [facility] vitamin C, 00:00: 23:59 elimination mouth 250 mg 00 :00 due to daily for tablet intestinal 60 days ostomy magnesium 2021- No Altered 800mg Q.5D Take 2 H arris oxide 5-23 03-30 bowel tablets by [facility] (MAG-OX) 00:00: 23:59 elimination mouth 2 400 mg 00 :00 due to times (241.3 mg intestinal daily for magnesium) ostomy 60 days tablet multivitami 2021- No Altered 1{tbl} QD Take 1 Lynne n with 01-21-30 bowel tablet by [facility] folic acid 00:00: 23:59 elimination mouth (THERA) 400 00 :00 due to daily for mcg tablet intestinal 60 days ostomy ascorbic 2021- No Altered 250mg QD Take 1 Momin rris acid, 01-21-30 bowel tablet by [facility] vitamin C, 00:00: 23:59 elimination mouth [...] Lynne n with 01-21-30 bowel tablet by [facility] folic acid 00:00: 23:59 elimination mouth (THERA) 400 00 :00 due to daily for mcg tablet intestinal 60 days ostomy ascorbic 2021- No Altered 250mg QD Take 1 Momin rris acid, 01-21-30 bowel tablet by [facility] vitamin C, 00:00: 23:59 elimination mouth 250 mg 00 :00 due to daily for tablet intestinal 60 days ostomy magnesium 2021- No Altered 800mg Q.5D Take 2 H arris oxide 5- 07-30 bowel tablets by [facility] (MAG-OX) 00:00: 23:59 elimination mouth 2 400 [...] rris acid, -23 03-30 bowel tablet by [facility] vitamin C, 00:00: 23:59 elimination mouth 250 mg 00 :00 due to daily for tablet intestinal 60 days ostomy magnesium 2021- No Altered 800mg Q.5D Take 2 H arris oxide -23 03-30 bowel tablets by [facility] (MAG-OX) 00:00: 23:59 elimination mouth 2 [...] arris oxide -23 03-30 bowel tablets by [facility] (MAG-OX) 00:00: 23:59 elimination mouth 2 400 [...] rris acid, 5-31 07-30 bowel tablet by [facility] vitamin C, 00:00: 23:59 elimination mouth [...] rris acid, 5- 07-30 bowel tablet by [facility] vitamin C, 00:00: 23:59 elimination mouth [...] rris acid, 5- 07-30 bowel tablet by [facility] vitamin C, 00:00: 23:59 elimination mouth [...] Momin rris acid, 01-21-30 bowel tablet by [facility] vitamin C, 00:00: 23:59 elimination mouth [...] rris acid, - 07-30 bowel tablet by [facility] vitamin C, [...] Momin rris acid, 01-21 bowel tablet by [facility] vitamin C, 00:00: 23:59 elimination mouth [...] days ostomy loperamide 2021- No Altered 4mg Q.52708178 Take 2 Lynne (IMODIUM) 2 01-21-30 bowel [id number] capsules Health mg capsule 00:00: 00:00 elimination [...] days ostomy loperamide 2021- No Altered 4mg Q.03075446 Take 2 Lynne (IMODIUM) 2 01-21-30 bowel [id number] capsules Health mg capsule 00:00: 00:00 elimination [...] days ostomy loperamide 2021- No Altered 4mg Q.16698648 Take 2 Lynne (IMODIUM) 2 --30 bowel [id number] capsules Health mg capsule 00:00: 00:00 elimination [...] days ostomy loperamide 2021- No Altered 4mg Q.80715173 Take 2 Lynne (IMODIUM) 2 01-21-30 bowel [id number] capsules Health mg capsule 00:00: 00:00 elimination [...] days ostomy loperamide 2021- No Altered 4mg Q.41657329 Take 2 Lynne (IMODIUM) 2 01-21-30 bowel [id number] capsules Health mg capsule 00:00: 00:00 elimination [...] days ostomy loperamide 2021- No Altered 4mg Q.69743812 Take 2 Lynne (IMODIUM) 2 01-21- bowel [id number] capsules Health mg capsule 00:00: 00:00 elimination [...] days ostomy loperamide 2021- No Altered 4mg Q.45709388 Take 2 Lynne (IMODIUM) 2 01-21- bowel [id number] capsules Health mg capsule 00:00: 00:00 elimination [...] days ostomy loperamide 2021- No Altered 4mg Q.98348498 Take 2 Lynne (IMODIUM) 2 01-21-30 bowel [id number] capsules Health mg capsule 00:00: 00:00 elimination [...] days ostomy loperamide 2021- No Altered 4mg Q.35197262 Take 2 Lynne (IMODIUM) 2 01-21-30 bowel [id number] capsules Health mg capsule 00:00: 00:00 elimination [...] days ostomy loperamide 2021- No Altered 4mg Q.65183040 Take 2 Lynne (IMODIUM) 2 01-21- bowel [id number] capsules Health mg capsule 00:00: 00:00 elimination [...] days ostomy loperamide 2021- No Altered 4mg Q.04155184 Take 2 Lynne (IMODIUM) 2 01-21-30 bowel [id number] capsules Health mg capsule 00:00: 00:00 elimination 3D by mouth 3 00 :00 due to times intestinal daily ostomy (before meals) for 30 days tamsulosin 2021- No Acute .4mg Take 1 Compa ris (FLOMAX) 01-21-30 kidney capsule by [facility] al[facility] 0.4 mg 00:00: 00:00 injury mouth capsule 00 :00 every evening for 30 days ferrous 2021-0 2021- No Altered 325mg QD Take 1 Compa ris sulfate 325 01-21-30 bowel tablet by [facility] (65 mg 00:00: 00:00 elimination mouth iron) 00 :00 due to daily for tablet intestinal 60 days ostomy loperamide 2021- No Altered 4mg Q.59679623 Take 2 Lynne (IMODIUM) 2 01-21-30 bowel [id number] capsules Health mg capsule 00:00: 00:00 elimination [...] days ostomy loperamide 2021- No Altered 4mg Q.52477136 Take 2 Lynne (IMODIUM) 2 01-21-30 bowel [id number] capsules Health mg capsule 00:00: 00:00 elimination [...] days ostomy loperamide 2021- No Altered 4mg Q.12901907 Take 2 Lynne (IMODIUM) 2 01-21-30 bowel [id number] capsules Health mg capsule 00:00: 00:00 elimination [...] days ostomy loperamide 2021- No Altered 4mg Q.20038560 Take 2 Lynne (IMODIUM) 2 01-21 bowel [id number] capsules Health mg capsule 00:00: 00:00 elimination [...] days ostomy loperamide 2021- No Altered 4mg Q.36937543 Take 2 Lynne (IMODIUM) 2 01-21-30 bowel [id number] capsules Health mg capsule 00:00: 00:00 elimination [...] days ostomy loperamide 2021- No Altered 4mg Q.70791683 Take 2 Lynne (IMODIUM) 2 01-21 bowel [id number] capsules Health mg capsule 00:00: 00:00 elimination [...] days ostomy loperamide 2021- No Altered 4mg Q.66911864 Take 2 Lynne (IMODIUM) 2 01-21 bowel [id number] capsules Health mg capsule 00:00: 00:00 elimination [...] days ostomy loperamide 2021- No Altered 4mg Q.92245246 Take 2 Lynne (IMODIUM) 2 01-21- bowel [id number] capsules Health mg capsule 00:00: 00:00 elimination [...] 60 days ostomy loperamide No Altered 4mg Q.06846361 Take 2 Lynne (IMODIUM) 2 01-21 bowel [id number] capsules Health mg capsule 00:00: 00:00 elimination [...] days ostomy loperamide 2021- No Altered 4mg Q.65499597 Take 2 Lynne (IMODIUM) 2 01-21 bowel [id number] capsules Health mg capsule 00:00: 00:00 elimination [...] days ostomy loperamide 2021- No Altered 4mg Q.17390447 Take 2 Lynne (IMODIUM) 2 01-21 bowel [id number] capsules Health mg capsule 00:00: 00:00 elimination [...] days ostomy loperamide 2021- No Altered 4mg Q.77609323 Take 2 Lynne (IMODIUM) 2 01-21 bowel [id number] capsules Health mg capsule 00:00: 00:00 elimination 3D by mouth 3 00 :00 due to times intestinal daily ostomy (before meals) for 30 days psyllium 2021- No Altered 1{packe Q.05914167 Take 1 Lynne (METAMUCIL) 01-21 bowel t} [id number] Packet by [facility] 6 gram PwPk 00:00: 00:00 elimination 3D mouth 3 00 :00 due to times intestinal daily ostomy (before meals) for 90 days psyllium 2021- No Altered 1{packe Q.83008924 Take 1 Lynne (METAMUCIL) 01-21 bowel t} [id number] Packet by [facility] 6 gram PwPk 00:00: 00:00 elimination 3D mouth 3 00 :00 due to times intestinal daily ostomy (before meals) for 90 days psyllium 2021- No Altered 1{packe Q.85006794 Take 1 Lynne (METAMUCIL) 01-21 bowel t} [id number] Packet by [facility] 6 gram PwPk 00:00: 00:00 elimination 3D mouth 3 00 :00 due to times intestinal daily ostomy (before meals) for 90 days psyllium 2021- No Altered 1{packe Q.17057759 Take 1 Lynne (METAMUCIL) 01-21 bowel t} [id number] Packet by [facility] 6 gram PwPk 00:00: 00:00 elimination 3D mouth 3 00 :00 due to times intestinal daily ostomy (before meals) for 90 days psyllium 2021- No Altered 1{packe Q.49323366 Take 1 Lynne (METAMUCIL) 01-21 bowel t} [id number] Packet by [facility] 6 gram PwPk 00:00: 00:00 elimination 3D mouth 3 00 :00 due to times intestinal daily ostomy (before meals) for 90 days psyllium 2021- No Altered 1{packe Q.05456270 Take 1 Lynne (METAMUCIL) 01-21 bowel t} [id number] Packet by [facility] 6 gram PwPk 00:00: 00:00 elimination 3D mouth 3 00 :00 due to times intestinal daily ostomy (before meals) for 90 days psyllium 2021- No Altered 1{packe Q.66211567 Take 1 Lynne (METAMUCIL) 01-21 bowel t} [id number] Packet by [facility] 6 gram PwPk 00:00: 00:00 elimination 3D mouth 3 00 :00 due to times intestinal daily ostomy (before meals) for 90 days psyllium 2021- No Altered 1{packe Q.93565680 Take 1 Lynne (METAMUCIL) 01-21 bowel t} [id number] Packet by [facility] 6 gram PwPk 00:00: 00:00 elimination 3D mouth 3 00 :00 due to times intestinal daily ostomy (before meals) for 90 days psyllium 2021- No Altered 1{packe Q.59169666 Take 1 Lynne (METAMUCIL) 01-21 bowel t} [id number] Packet by [facility] 6 gram PwPk 00:00: 00:00 elimination 3D mouth 3 00 :00 due to times intestinal daily ostomy (before meals) for 90 days psyllium 2021- No Altered 1{packe Q.57188730 Take 1 Lynne (METAMUCIL) 01-21 bowel t} [id number] Packet by [facility] 6 gram PwPk 00:00: 00:00 elimination 3D mouth 3 00 :00 due to times intestinal daily ostomy (before meals) for 90 days psyllium 2021- No Altered 1{packe Q.78273068 Take 1 Lynne (METAMUCIL) 01-21 bowel t} [id number] Packet by [facility] 6 gram PwPk 00:00: 00:00 elimination 3D mouth 3 00 :00 due to times intestinal daily ostomy (before meals) for 90 days psyllium 2021- No Altered 1{packe Q.72498760 Take 1 Lynne (METAMUCIL) 01-21 bowel t} [id number] Packet by [facility] 6 gram PwPk 00:00: 00:00 elimination 3D mouth 3 00 :00 due to times intestinal daily ostomy (before meals) for 90 days psyllium 2021- No Altered 1{packe Q.87108310 Take 1 Lynne (METAMUCIL) 01-21 bowel t} [id number] Packet by [facility] 6 gram PwPk 00:00: 00:00 elimination 3D mouth 3 00 :00 due to times intestinal daily ostomy (before meals) for 90 days psyllium 2021- No Altered 1{packe Q.[id number] Take 1 Lynne (METAMUCIL) 01-21 bowel t} [id number] Packet by [facility] 6 gram PwPk 00:00: 00:00 elimination 3D mouth 3 00 :00 due to times intestinal daily ostomy (before meals) for 90 days psyllium 2021- No Altered 1{packe Q.[id number] Take 1 Lynne (METAMUCIL) 01-21 bowel t} [id number] Packet by [facility] 6 gram PwPk 00:00: 00:00 elimination 3D mouth 3 00 :00 due to times intestinal daily ostomy (before meals) for 90 days psyllium 2021- No Altered 1{packe Q.[id number] Take 1 Lynne (METAMUCIL) 01-21 bowel t} [id number] Packet by [facility] 6 gram PwPk 00:00: 00:00 elimination 3D mouth 3 00 :00 due to times intestinal daily ostomy (before meals) for 90 days psyllium 2021- No Altered 1{packe Q.[id number] Take 1 Lynne (METAMUCIL) 01-21 bowel t} [id number] Packet by [facility] 6 gram PwPk 00:00: 00:00 elimination 3D mouth 3 00 :00 due to times intestinal daily ostomy (before meals) for 90 days psyllium 2021- No Altered 1{packe Q.[id number] Take 1 Lynne (METAMUCIL) 01-21 bowel t} [id number] Packet by [facility] 6 gram PwPk 00:00: 00:00 elimination 3D mouth 3 00 :00 due to times intestinal daily ostomy (before meals) for 90 days psyllium 2021- No Altered 1{packe Q.[id number] Take 1 Lynne (METAMUCIL) 01-21 bowel t} [id number] Packet by [facility] 6 gram PwPk 00:00: 00:00 elimination 3D mouth 3 00 :00 due to times intestinal daily ostomy (before meals) for 90 days psyllium 2021- No Altered 1{packe Q.[id number] Take 1 Lynne (METAMUCIL) 01-21 bowel t} [id number] Packet by [facility] 6 gram PwPk 00:00: 00:00 elimination 3D mouth 3 00 :00 due to times intestinal daily ostomy (before meals) for 90 days psyllium 2021- No Altered 1{packe Q.[id number] Take 1 Lynne (METAMUCIL) 01-21 bowel t} [id number] Packet by [facility] 6 gram PwPk 00:00: 00:00 elimination 3D mouth 3 00 :00 due to times intestinal daily ostomy (before meals) for 90 days psyllium 2021- No Altered 1{packe Q.[id number] Take 1 Lynne (METAMUCIL) 01-21 bowel t} [id number] Packet by [facility] 6 gram PwPk 00:00: 00:00 elimination 3D mouth 3 00 :00 due to times intestinal daily ostomy (before meals) for 90 days psyllium 2021- No Altered 1{packe Q.[id number] Take 1 Lynne (METAMUCIL) 01-21 bowel t} [id number] Packet by [facility] 6 gram PwPk 00:00: 00:00 elimination 3D mouth 3 00 :00 due to times intestinal daily ostomy (before meals) for 90 days tamsulosin 2021- No Benign .4mg QD Take 1 Momin rris (FLOMAX) 01-12 prostatic capsule by [facility] 0.4 mg 00:00: 00:00 hyperplasia mouth capsule 00 :00 , daily. unspecified Start on whether 01/12/2022. lower urinary tract symptoms present tamsulosin 2021- No Benign .4mg QD Take 1 Momin rris (FLOMAX) 01-12 prostatic capsule by [facility] 0.4 mg 00:00: 00:00 hyperplasia mouth capsule 00 :00 , daily. unspecified Start on whether 01/12/2022. lower urinary tract symptoms present tamsulosin 2021- No Benign .4mg QD Take 1 Momin rris (FLOMAX) 01-12 prostatic capsule by [facility] 0.4 mg 00:00: 00:00 hyperplasia mouth capsule 00 :00 , daily. unspecified Start on whether 01/12/2022. lower urinary tract symptoms present tamsulosin 2021- No Benign .4mg QD Take 1 Momin rris (FLOMAX) 01-12 prostatic capsule by [facility] 0.4 mg 00:00: 00:00 hyperplasia mouth capsule 00 :00 , daily. unspecified Start on whether 01/12/2022. lower urinary tract symptoms present tamsulosin 2021- No Benign .4mg QD Take 1 Momin rris (FLOMAX) 01-12 prostatic capsule by [facility] 0.4 mg 00:00: 00:00 hyperplasia mouth capsule [...] Momin rris (FLOMAX) 01-12- prostatic capsule by [facility] 0.4 mg 00:00: 00:00 hyperplasia mouth capsule 00 :00 , daily. unspecified Start on whether 01/12/2022. lower urinary tract symptoms present tamsulosin 2021-2021- No Benign .4mg QD Take 1 Momin rris (FLOMAX) 01-12 prostatic capsule by [facility] 0.4 mg 00:00: 00:00 hyperplasia mouth capsule 00 :00 , daily. unspecified Start on whether 01/12/2022. lower urinary tract symptoms present tamsulosin 2021-2021- No Benign .4mg QD Take 1 Momin rris (FLOMAX) 01-12- prostatic capsule by [facility] 0.4 mg 00:00: 00:00 hyperplasia mouth capsule 00 :00 , daily. unspecified Start on whether 01/12/2022. lower urinary tract symptoms present tamsulosin 2021-2021- No Benign .4mg QD Take 1 Momin rris (FLOMAX) 01-12-31 prostatic capsule by [facility] 0.4 mg 00:00: 00:00 hyperplasia mouth capsule 00 :00 , daily. unspecified Start on whether 01/12/2022. lower urinary tract symptoms present tamsulosin 2021-2021- No Benign .4mg QD Take 1 Momin rris (FLOMAX) 01-12-31 prostatic capsule by [facility] 0.4 mg 00:00: 00:00 hyperplasia mouth [...] Momin rris (FLOMAX) 01-12- prostatic capsule by [facility] 0.4 mg 00:00: 00:00 hyperplasia mouth capsule 00 :00 , daily. unspecified Start on whether 01/12/2022. lower urinary tract symptoms present tamsulosin 2021-2021- No Benign .4mg QD Take 1 Momin rris (FLOMAX) 01-12- prostatic capsule by [facility] 0.4 mg 00:00: 00:00 hyperplasia mouth capsule 00 :00 , daily. unspecified Start on whether 01/12/2022. lower urinary tract symptoms present tamsulosin 2021-2021- No Benign .4mg QD Take 1 Momin rris (FLOMAX) 01-12-31 prostatic capsule by [facility] 0.4 mg 00:00: 00:00 hyperplasia mouth capsule 00 :00 , daily. unspecified Start on whether 01/12/2022. lower urinary tract symptoms present tamsulosin 2021- No Benign .4mg QD Take 1 Momin rris (FLOMAX) 01-12-31 prostatic capsule by [facility] 0.4 mg 00:00: 00:00 hyperplasia mouth capsule 00 :00 , daily. unspecified Start on whether 01/12/2022. lower urinary tract symptoms present tamsulosin 2021-2021- No Benign .4mg QD Take 1 Momin rris (FLOMAX) 01-12-31 prostatic capsule by [facility] 0.4 mg 00:00: 00:00 hyperplasia mouth capsule 00 :00 , daily. unspecified Start on whether 01/12/2022. lower urinary tract symptoms present tamsulosin 2021-2- No Benign .4mg QD Take 1 Momin [...] Momin rris (FLOMAX) 01-12 prostatic capsule by [facility] 0.4 mg 00:00: 00:00 hyperplasia mouth capsule 00 :00 , daily. unspecified Start on whether 01/12/2022. lower urinary tract symptoms present tamsulosin 2021-2021- No Benign .4mg QD Take 1 Momin rris (FLOMAX) 01-12 prostatic capsule by [facility] 0.4 mg 00:00: 00:00 hyperplasia mouth capsule [...] 2021-0 2021- No Malnutritio 1{packa Take 1 Ylnne supplemment 5-21 06-21 n due to ge} [...] n (DAILY 04-14 abuse, in tablet by [facility]) 00:00: 00:00 remission mouth tablet 00 :00 daily. thiamine, 2021- No Alcohol 100mg QD Take 1 H arris B-1, 100 mg 04-14- abuse, in tablet by [facility] tablet 00:00: 00:00 remission mouth 00 :00 daily. multivitami 2021- No Alcohol 1{tbl} QD Take 1 Lynne n (DAILY 04-14 abuse, in tablet by [facility] [employer]) 00:00: 00:00 remission mouth tablet 00 :00 daily. thiamine, 2021- No Alcohol 100mg QD Take 1 H arris B-1, 100 mg 04-14- abuse, in tablet by [facility] tablet 00:00: 00:00 remission mouth 00 :00 daily. multivitami 2021- No Alcohol 1{tbl} QD Take 1 Lynne n (DAILY 04-14 abuse, in tablet by [facility]) 00:00: 00:00 remission mouth tablet 00 :00 [...] n (DAILY 04-14 abuse, in tablet by [facility] [employer]) 00:00: 00:00 remission mouth tablet 00 :00 daily. thiamine, 2021- No Alcohol 100mg QD Take 1 H arris B-1, 100 mg 04-14- abuse, in tablet by Health tablet 00:00: 00:00 remission mouth 00 :00 daily. multivitami 2021- No Alcohol 1{tbl} QD Take 1 Lynne n (DAILY 04-14 abuse, in tablet by [facility] VITES) 00:00: 00:00 remission mouth tablet 00 :00 daily. 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 multivitami 2021- No Alcohol 1{tbl} QD Take 1 Lynne n (DAILY 04-14- abuse, in tablet by [facility] [employer]) 00:00: 00:00 remission mouth tablet 00 :00 [...] n (DAILY 04-14- abuse, in tablet by [facility] VITES) 00:00: 00:00 remission mouth tablet 00 :00 daily. thiamine, 2021- No Alcohol 100mg QD Take 1 H arris B-1, 100 mg 04-14- abuse, in tablet by Health tablet 00:00: 00:00 remission mouth 00 :00 daily. multivitami 2021- No Alcohol 1{tbl} QD Take 1 Lynne n (DAILY 04-14 abuse, in tablet by [facility] [employer]) 00:00: 00:00 remission mouth tablet 00 :00 daily. thiamine, 2021- No Alcohol 100mg QD Take 1 H arris B-1, 100 mg 04-14-21 abuse, in tablet by Health tablet 00:00: 00:00 remission mouth 00 :00 daily. multivitami 2021- No Alcohol 1{tbl} QD Take 1 Lynne n (DAILY 04-14- abuse, in tablet by [facility] VITES) 00:00: 00:00 remission mouth tablet 00 :00 daily. thiamine, 2021- No Alcohol 100mg QD Take 1 H arris B-1, 100 mg 04-14-21 abuse, in tablet by Health tablet 00:00: 00:00 remission mouth 00 :00 daily. multivitami 2021- No Alcohol 1{tbl} QD Take 1 Lynne n (DAILY 04-14-21 abuse, in tablet by [facility] VITES) 00:00: 00:00 remission mouth tablet 00 [...] (DAILY 04-14 05-21 abuse, in tablet by [facility] [employer]) 00:00: 00:00 remission mouth tablet 00 :00 daily. 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 multivitami 2021- No Alcohol 1{tbl} QD Take 1 Lynne n (DAILY 04-14 05-21 abuse, in tablet by [facility] VITES) 00:00: 00:00 remission mouth tablet 00 :00 daily. thiamine, 2021- No Alcohol 100mg QD Take 1 H arris B-1, 100 mg 04-14 05-21 abuse, in tablet by Health tablet 00:00: 00:00 remission mouth 00 :00 daily. multivitami 2021- No Alcohol 1{tbl} QD Take 1 Lynne n (DAILY 04-14 05-21 abuse, in tablet by [facility] VITES) 00:00: 00:00 remission mouth tablet 00 :00 daily. 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 multivitami 2021- No Alcohol 1{tbl} QD Take 1 Lynne n (DAILY 8 05-21 abuse, in tablet by [facility] VITES) 00:00: 00:00 remission mouth tablet 00 [...] n (DAILY 04-14- abuse, in tablet by [facility]) 00:00: 00:00 remission mouth tablet 00 :00 daily. thiamine, 2021- No Alcohol 100mg QD Take 1 H arris B-1, 100 mg 04-14- abuse, in tablet by Health tablet 00:00: 00:00 remission mouth 00 :00 daily. multivitami 2021- No Alcohol 1{tbl} QD Take 1 Lynne n (DAILY 04-14- abuse, in tablet by [facility] [employer]) 00:00: 00:00 remission mouth tablet 00 :00 [...] (DAILY 04-14 05-21 abuse, in tablet by [facility] [employer]) 00:00: 00:00 remission mouth tablet 00 :00 daily. 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 multivitami 2021- No Alcohol 1{tbl} QD Take 1 Lynne n (DAILY 04-14 abuse, in tablet by [facility]) 00:00: 00:00 remission mouth tablet 00 :00 [...] kg Systolic blood 2022-03-13 15:33:00 94 mm[Hg] [facility] pressure Diastolic blood 2022-03-13 15:33:00 62 mm[Hg] [facility] pressure Heart rate 2022-03-13 15:33:00 109 /min [facility] Body temperature 2022-03-13 15:33:00 36.67 Tasia [facility] Respiratory rate 2022-03-13 15:33:00 20 /min [facility] Body height 2022-03-13 15:33:00 185.4 cm [facility] Body weight 2022-03-13 15:33:00 66.679 kg [facility] BMI 2022-03-13 15:33:00 19.39 kg/m2 [facility] Oxygen saturation in 2022-03-13 15:33:00 100 /min [facility] Arterial blood by Pulse oximetry Systolic blood 2022-03-09 11:00:00 107 mm[Hg] [facility] Diastolic blood 2022-03-09 11:00:00 66 mm[Hg] [facility] Heart rate 2022-03-09 11:00:00 58 /min [facility] Body temperature 2022-03-09 11:00:00 36.22 Tasia [facility] Respiratory rate 2022-03-09 11:00:00 16 /min [facility] Oxygen saturation in 2022-03-09 11:00:00 100 /min [facility] Arterial blood by [facility] Pulse oximetry Body height 2022-03-06 12:05:00 185.4 cm [facility] Body weight 2022-03-06 12:05:00 65.772 kg [facility] BMI 2022-03-06 12:05:00 19.13 kg/m2 [facility] Procedures Procedure Date / Time Performing Clinician Source Performed BASIC METABOLIC PANEL 2022-03-07 05:51:00 Romie Kuo [facility] HEPATIC FUNCTION PANEL 2022-03-07 05:51:00 Eduar KuoPhilippAcacia [facility] CBC W/PLT COUNT & AUTO 2022-03-07 05:51:[address] [facility] CBC W/PLT COUNT & AUTO 2022-03-07 05:51:[address] [facility] US RENAL COMPLETE 2022-03-06 18:23:00 Eduar KuoebenezerPhilippAcacia [facility] SARS-COV2/RT-PCR ([facility] & 2022-03-06 17:36:00 ShielaEduarExcela [facility] REF LABS) [facility] TSH/FREE T4 IF INDICATED 2022-03-06 14:18[facility] 2022-03-06 14:18[facility]00 [facility] 2022-03-06 13:48:12 [facility] 1 VIEW PORTABLE 2022-03-06 13:42:00 [facility] B-TYPE NATRIURETIC FACTOR 2022-03-06 13:23:00 Aryan Tello [facility] (BNP) [facility] CBC W/PLT COUNT & AUTO 2022-03-06 13:23:00 Aryan Tello [facility] COMPREHENSIVE METABOLIC 2022-03-06 13:23:00 Aryan Tello [facility] PANEL [facility] HIGH SENSITIVITY TROPONIN 2022-03-06 13:23:00 Aryan Tello [facility] MAGNESIUM 2022-03-06 13:23:00 Aryan Tello [facility] PHOSPHORUS 2022-03-06 13:23:00 Aryan Tello [facility] LACTIC ACID, VENOUS 2022-03-06 13:23:00 Aryan Tello [facility] CREATINE KINASE (CK) 2022-03-06 13:23:00 Aryan Tello [facility] CBC W/PLT COUNT & AUTO 2022-03-06 13:23:00 Aryan Tello [facility] DIFFERENTIAL [facility] ECG 12-LEAD 2022-03-06 12:12:56 Unknown, [facility] ECG 12-LEAD 2022-03-06 12:12:56 Unknown, [facility] ECG 12-LEAD 2022-03-06 12:12:56 Unknown, [facility] EKG-SCANNED 2022-03-06 00:00:00 Provider, Jacqui [facility] CBC (WITHOUT 2022-02-20 05:10:00 Rufino Lazaro DIFFERENTIAL) BASIC METABOLIC PANEL 2022-02-20 05:10:00 Rufino Lazaro Health MAGNESIUM 2022-02-20 05:10:00 Rufino Lazaro PHOSPHORUS 2022-02-20 05:10:00 Rufino Lazaro INFUSION PUMP 2022-02-19 19:03:50 Rufino Lazaro COMPREHENSIVE METABOLIC 2022-02-19 06:35:00 [facility] 2022-02-19 06:35:00 Kobe Blake alth PHOSPHORUS 2022-02-19 06:35:00 Kobe Blake alth CBC 2022-02-19 06:35:00 Kobe Blake alth URINALYSIS W/REFLEX TO 2022-02-19 00:34:00 Kobe Blake [facility] URINE CULTURE URINALYSIS 2022-02-19 00:34:00 Chadd Palacios URINE CULTURE COLLECTION 2022-02-19 00:34:00 Chadd Palacios [facility] KIT SARS-COV-2, FLU A/B, RSV 2022-02-18 19:00:00 Chadd Palacios [facility] CORONAVIRUS, COVID-19, 2022-02-18 19:00:00 Chadd Palacios [facility] OLENA XRAY CHEST 1 VIEW 2022-02-18 15:23:00 Roz Scales [facility] CONSULT CLINICAL CASE 2022-02-18 14:50:50 Yordy Roz [facility] MANAGEMENT (RN/SW) CBC/DIFF 2022-02-18 14:16:00 Albab, Susana [facility] BASIC METABOLIC PANEL 2022-02-18 14:16:00 [facility] 2022-02-18 14:16:00 [facility] PHOSPHORUS 2022-02-18 14:16:00 Albab, Susana [facility] CREATINE KINASE (CK) 2022-02-18 14:16:00 [facility] CBC 2022-02-18 14:16:00 Albab, Susana [facility] BASIC METABOLIC PANEL 2022-02-11 03:34:00 [facility] 2022-02-11 03:34:00 Cuchapin, Teresa [facility] PHOSPHORUS 2022-02-11 03:34:00 [facility]inTeresa [facility] CBC (WITHOUT 2022-02-11 03:34:00 [place], Teresa [facility] DIFFERENTIAL) CBC/DIFF 2022-02-10 03:39:00 Meghan Islas Healt h BASIC METABOLIC PANEL 2022-02-10 03:39:00 Antonieta Rosasashia [facility] CBC 2022-02-10 03:39:00 Antonieta Rosasashia [facility] THYROID STIMULATING 2022-02-10 03:39:00 JamilahpinTeresa [facility] HORMONE (TSH) FREE T4 2022-02-10 03:39:00 [place] Teresa [facility] CBC/DIFF 2022-02-09 04:38:00 Meghan Islas Healt h BASIC METABOLIC PANEL 2022-02-09 04:38:00 [facility] 2022-02-09 04:38:00 [facility] 2022-02-08 11:37:00 Mari Meier ealt GLUCOSE POC 2022-02-08 08:07:00 Meghan Islas h CBC (WITHOUT 2022-02-08 04:00:00 HardeepMari [facility] DIFFERENTIAL) COMPREHENSIVE METABOLIC 2022-02-08 04:00:00 Mari Meier Health PANEL PHOSPHORUS 2022-02-08 04:00:00 [facility] MAGN[facility]UM 2022-02-08 04:00:00 Mari Meier [facility] PT/INR 2022-02-08 04:00:00 Mari Meier [facility] URINALYSIS W/REFLEX TO 2022-02-07 18:06:00 Areli Arciniega [facility] URINE CULTURE URINALYSIS 2022-02-07 18:06:00 Areli Arciniega alth URINE CULTURE COLLECTION 2022-02-07 18:06:00 Areli Arciniega [facility] KIT ELECTROLYTES, URINE 2022-02-07 18:06:00 Jyoti Carrillo [facility] OSMOLALITY, URINE 2022-02-07 18:06:00 Jyoti Carrillo [facility] SARS-COV-2, FLU A/B, RSV 2022-02-07 18:05:00 Jyoti Carrillo [facility] CORONAVIRUS, COVID-19, 2022-02-07 18:05:00 Jyoti Carrillo [facility] OLENA NUTRITION CONSULT 2022-02-07 17:43:36 Mari Meier [facility] ASSESSMENT BASIC METABOLIC PANEL 2022-02-07 17:18:00 Jyoti Carrillo [facility] LACTIC ACID 2022-02-07 14:04:00 Areli Arciniega alth CBC/DIFF 2022-02-07 14:03:00 Areli Arciniega alth BASIC METABOLIC PANEL 2022-02-07 14:03:00 Areli Arciniega [facility] LIVER PROFILE 2022-02-07 14:03:00 Areli Arciniega alth LIPASE 2022-02-07 14:03:00 Areli Arciniega alth MAGNESIUM 2022-02-07 14:03:00 Areli Arciniega [facility] alth PHOSPHORUS 2022-02-07 14:03:00 Areli Arciniega [facility] TROPONIN I 2022-02-07 14:03:00 Areli Arciniega alth CBC 2022-02-07 14:03:00 Areli Arciniega alth 12 LEAD EKG 2022-01-21 15:46:10 Ori Goldberg [facility] CBC/DIFF 2022-01-21 04:11:00 LindseySteve [facility] MAGNESIUM 2022-01-21 04:11:00 LindseyNoeh P [facility] PHOSPHORUS 2022-01-21 04:11:00 LindseyNoeh P [facility] BASIC METABOLIC PANEL 2022-01-21 04:11:00 Ori Goldberg [facility] CBC 2022-01-21 04:11:00 LindseySteve [facility] CBC/DIFF 2022-01-20 04:37:00 LindseySteve [facility] MAGNESIUM 2022-01-20 04:37:00 LindseySteve [facility] PHOSPHORUS 2022-01-20 04:37:00 LindseySteve P [facility] BASIC METABOLIC PANEL 2022-01-20 04:37:[facility]-01-20 04:37:00 LindseySteve [facility] MAGNESIUM 2022-01-19 18:09:00 LindseySteve P [facility] PHOSPHORUS 2022-01-19 18:09:00 Lindsey Steve P [facility] BASIC METABOLIC PANEL 2022-01-19 18:09:00 Lindsey, [facility] CORTISOL, TOTAL 2022-01-19 18:09:00 Karin Bassett [facility] URINALYSIS W/REFLEX TO 2022-01-19 17:22:00 Steve Lucas [facility] Health URINE CULTURE URINALYSIS 2022-01-19 17:22:00 Steve Lucas [facility] URINE CULTURE COLLECTION 2022-01-19 17:22:00 Steve Lucas M[facility] KIT COMPUTED TOMOGRAPHY 2022-01-19 13:29:00 Steve Lucas [facility] ABDOMEN AND PELVIS WITHOUT CONTRAST CBC/DIFF 2022-01-19 04:44:00 Steve Lucas [facility] CBC 2022-01-19 04:44:00 Steve Lucas [facility] DIFFERENTIAL, MANUAL (NO 2022-01-19 04:44:00 Steve Lucas M[facility] Health MORPHOLOGY)-WA BASIC METABOLIC PANEL 2022-01-18 17:15:00 [facility] CBC/DIFF 2022-01-18 04:46:00 Steve Lucas [facility] MAGNESIUM 2022-01-18 04:46:00 Steve Lucas [facility] PHOSPHORUS 2022-01-18 04:46:00 Steve Lucas [facility] BASIC METABOLIC PANEL 2022-01-18 04:46:00 Ori Goldberg [facility] CBC 2022-01-18 04:46:00 Steve Lucas [facility] HIV AG/AB COMBO ROUTINE 2022-01-18 04:46:00 Karin Bassett [facility] SCREENING ENTERIC PATHOGENS NUCLEIC 2022-01-18 03:25:00 Karin Bassett [facility] ACID TEST BASIC METABOLIC PANEL 2022-01-18 00:29:00 Ori Goldberg [facility] BASIC METABOLIC PANEL 2022-01-17 17:07:00 [facility] BASIC METABOLIC PANEL 2022-01-17 13:15:00 tSeve Lucas [facility] CALPROTECTIN FECAL 2022-01-17 12:38:00 Steve Lucas [facility] ealth FECAL LEUKOCYTES 2022-01-17 12:38:00 Steve Lucas [facility] T-TRANSGLUTAMINASE IGA 2022-01-17 12:22:00 Steve Lucas [facility] BASIC METABOLIC PANEL 2022-01-17 08:51:00 LindseySteve P [facility] BASIC METABOLIC PANEL 2022-01-17 04:47:00 Steve Lucas [facility] [employer] CBC/DIFF 2022-01-17 04:47:00 Steve Lucas Heal th MAGNESIUM 2022-01-17 04:47:00 Steve Lucas [facility] th PHOSPHORUS 2022-01-17 04:47:00 LindseySteve Esther [facility] CBC 2022-01-17 04:47:00 Steve Lucas [facility] BASIC METABOLIC PANEL 2022-01-17 00:08:00 Lindsey, Steve Esther [employer] [facility] 12 LEAD EKG 2022-01-16 21:23:25 LindseySteve [facility] BASIC METABOLIC PANEL 2022-01-16 21:08:00 Lindsey, Steve Santana [employer] XRAY CHEST 2 VIEWS 2022-01-16 19:56:00 Steve Lucas ealth IP CONSULT TO PHYSICAL 2022-01-16 19:17:17 Steve Lucas is Health THERAPY CONSULT CLINICAL CASE 2022-01-16 19:17:17 Lindsey, Steve Santana [employer] [facility] MANAGEMENT (RN/SW) SEQUENTIAL COMPRESSION 2022-01-16 19:17:17 Steve Lucas is Health PUMP SEQUENTIAL COMPRESSION 2022-01-16 19:17:17 Noe Lucash [facility] PUMP SODIUM, URINE, RANDOM 2022-01-16 16:00:00 NievesKevin barreto [facility] CREATININE, URINE, RANDOM 2022-01-16 16:00:00 Kevin Nieves [facility] OSMOLALITY, URINE 2022-01-16 16:00:00 Kevin Nieves [facility] SARS-COV-2, FLU A/B, RSV 2022-01-16 15:20:00 Kevin Nieves [facility] CORONAVIRUS, COVID-19, 2022-01-16 15:20:00 Kevin Nieves [facility] OLENA FOLIC ACID 2022-01-16 14:13:00 Kevin Nieves [facility] ealt CREATININE POC 2022-01-16 13:55:00 Raymon Martin [facility] h BMP POC 2022-01-16 13:46:00 Veronica Raymon [facility] CBC/DIFF 2022-01-16 12:12:00 Veronica Raymon Dao [facility] CBC 2022-01-16 12:12:00 Veronica Raymon [facility] BASIC METABOLIC PANEL 2022-01-16 12:11:00 Sadiq Vargas [facility] MAGNESIUM 2022-01-16 12:11:00 Sadiq Vargas a lth VITAMIN B12 2022-01-16 12:11:00 Kevin Nieves [facility] ealth OSMOLALITY,SERUM 2022-01-16 12:11:00 Kevin Nieves [facility] INFUSION PUMP 2022-01-11 09:21:05 Helene Ring [facility] GLUCOSE POC 2022-01-11 07:54:00 Helene Ring [facility] BASIC METABOLIC PANEL 2022-01-11 04:07:00 Merissa Richards [facility] MAGNESIUM 2022-01-11 04:07:00 [facility]-11 04:07:00 Merissa Richards [facility] CBC/DIFF 2022-01-11 04:06:00 [facility] IRON PROFILE 2022-01-11 04:06:00 [facility] FOLIC [facility]ID 2022-01-11 04:06:00 Merissa Richards [facility] CBC 2022-01-11 04:06:00 Merissa Richards [facility] h GLUCOSE POC 2022-01-10 18:16:00 Helene Ring [facility] URINALYSIS 2022-01-10 16:10:00 [facility] 2022-01-10 16:10:00 Merissa Richards [facility] SARS-COV-2, FLU A/B, RSV 2022-01-10 15:54:00 Merissa Richards [facility] CORONAVIRUS, COVID-19, 2022-01-10 15:54:00 Antoine Hester [facility] OLENA BASIC METABOLIC PANEL 2022-01-10 15:54:00 Merissa Richards [facility] VITAMIN B12 2022-01-10 15:54:00 Merissa Richards [facility] VBG POC 2022-01-10 11:14:00 Best, Provider [facility] CBC/DIFF 2022-01-10 11:13:00 Antoine Hester [facility] BASIC METABOLIC PANEL 2022-01-10 11:13:00 Antoine Hester [facility] LACTIC ACID 2022-01-10 11:13:00 Antoine Hester [facility] h CBC 2022-01-10 11:13:00 Antoine Hester [facility] h LIVER PROFILE 2022-01-10 11:13:00 Merissa Richards [facility] CK, TOTAL 2022-01-10 11:13:00 Merissa Richards [facility] FERRITIN 2022-01-10 11:13:00 Merissa Richards [facility] CREATINE KINASE MB (CKMB) 2022-01-10 11:13:00 Merissa Richards [facility] XRAY CHEST 2 VIEWS 2022-01-08 21:50:14 Tanja Sebastian [facility] CBC/DIFF 2022-01-08 21:27:00 Tanja Sebastian [facility] BASIC METABOLIC PANEL 2022-01-08 21:27:00 Tanja Sebastian [facility] LIVER PROFILE 2022-01-08 21:27:00 Tanja Sebastian [facility] CK, TOTAL 2022-01-08 21:27:00 Tanja Sebastian [facility] TROPONIN I 2022-01-08 21:27:00 Tanja Sebastian [facility] lt CBC 2022-01-08 21:27:00 Tanja Sebastian [facility] CREATINE KINASE MB (CKMB) 2022-01-08 21:27:00 Tanja Sebastian [facility] 12 LEAD EKG 2022-01-08 20:59:56 Tanja Sebastian [facility] lt [id number] 2020-01-09 00:00:[id number] [facility] Plan of Care Planned Activity Planned Date Details Comments Source Future Scheduled 2029-03-23 Screening for malignant [facility] 00:00:00 neoplasm of colon [facility] (procedure) [code = [id number]] Future Scheduled 2029-03-23 Screening for malignant [facility] 00:00:00 neoplasm of colon [facility] (procedure) [code = 711554409] Future Scheduled 2029-03-23 Screening for malignant [facility] 00:00:00 neoplasm of colon [facility] (procedure) [code = 356025515] Future Scheduled 2029-03-23 Screening for malignant [facility] 00:00:00 neoplasm of colon [facility] (procedure) [code = 324279739] Future Scheduled 2029-03-23 Screening for malignant [facility] 00:00:00 neoplasm of colon [facility] (procedure) [code = 043512753] Future Scheduled 2029-03-23 Screening for malignant [facility] 00:00:00 neoplasm of colon [facility] (procedure) [code = 334040349] Future Scheduled 2029-03-23 Screening for malignant [facility] 00:00:00 neoplasm of colon [facility] (procedure) [code = 671771344] Future Scheduled 2029-03-23 Screening for malignant [facility] 00:00:00 neoplasm of colon [facility] (procedure) [code = 616668108] Future Scheduled 2029-03-23 Screening for malignant [facility] 00:00:00 neoplasm of colon [facility] (procedure) [code = 085395233] Future Scheduled 2029-03-23 Screening for malignant [facility] 00:00:00 neoplasm of colon [facility] (procedure) [code = 703505124] Future Scheduled 2029-03-23 Screening for malignant [facility] 00:00:00 neoplasm of colon [facility] (procedure) [code = 071521705] Future Scheduled 2029-03-23 Screening for malignant [facility] 00:00:00 neoplasm of colon [facility] (procedure) [code = 138138812] Future Scheduled 2029-03-23 Screening for malignant [facility] 00:00:00 neoplasm of colon [facility] (procedure) [code = 250942058] Future Scheduled 2029-03-23 Screening for malignant [facility] 00:00:00 neoplasm of colon [facility] (procedure) [code = 613106511] Future Scheduled 2029-03-23 Screening for malignant [facility] 00:00:00 neoplasm of colon [facility] (procedure) [code = 089693377] Future Scheduled 2029-03-23 Screening for malignant [facility] 00:00:00 neoplasm of colon [facility] (procedure) [code = 808045011] Future Scheduled 2029-03-23 Screening for malignant [facility] 00:00:00 neoplasm of colon [facility] (procedure) [code = 572930353] Future Scheduled 2029-03-23 Screening for malignant [facility] 00:00:00 neoplasm of colon [facility] (procedure) [code = 584787031] Future Scheduled 2029-03-23 Screening for malignant [facility] 00:00:00 neoplasm of colon [facility] (procedure) [code = 627398940] Future Scheduled 2029-03-23 Screening for malignant [facility] 00:00:00 neoplasm of colon [facility] (procedure) [code = 945648656] Future Scheduled 2029-03-23 Screening for malignant [facility] 00:00:00 neoplasm of colon [facility] (procedure) [code = 292167337] Future Scheduled 2029-03-23 Screening for malignant [facility] 00:00:00 neoplasm of colon [facility] (procedure) [code = 505756202] Future Scheduled 2029-03-23 Screening for malignant [facility] 00:00:00 neoplasm of colon [facility] (procedure) [code = 676756692] Future Scheduled 2029-03-23 Screening for malignant [facility] 00:00:00 neoplasm of colon [facility] (procedure) [code = 864551999] Future Scheduled 2029-03-23 Screening for malignant [facility] 00:00:00 neoplasm of colon [facility] (procedure) [code = 663849746] Future Scheduled 2029-03-23 Screening for malignant [facility] 00:00:00 neoplasm of colon [facility] (procedure) [code = 392281316] Future Scheduled 2029-03-23 Screening for malignant [facility] 00:00:00 neoplasm of colon [facility] (procedure) [code = 638020915] Future Scheduled 2029-03-23 Screening for malignant [facility] 00:00:00 neoplasm of colon [facility] (procedure) [code = 960431666] Future Scheduled 2029-03-23 Screening for malignant [facility] 00:00:00 neoplasm of colon [facility] (procedure) [code = 402849561] Future Scheduled 2029-03-23 Screening for malignant [facility] 00:00:00 neoplasm of colon [facility] (procedure) [code = 975123335] Future Scheduled 2029-03-23 Screening for malignant [facility] 00:00:00 neoplasm of colon [facility] (procedure) [code = 708564130] Future Scheduled 2029-03-23 Screening for malignant [facility] 00:00:00 neoplasm of colon [facility] (procedure) [code = 953937799] Future Scheduled 2029-03-23 Screening for malignant [facility] 00:00:00 neoplasm of colon [facility] (procedure) [code = 863771204] Future Scheduled 2029-03-23 Screening for malignant [facility] 00:00:00 neoplasm of colon [facility] (procedure) [code = 808197065] Future Scheduled 2029-03-23 Screening for malignant [facility] 00:00:00 neoplasm of colon [facility] (procedure) [code = 333169899] Future Scheduled 2029-03-23 Screening for malignant [facility] 00:00:00 neoplasm of colon [facility] (procedure) [code = 709437388] Future Scheduled 2029-03-23 Screening for malignant [facility] 00:00:00 neoplasm of colon [facility] (procedure) [code = 027826510] Future Scheduled 2029-03-23 Screening for malignant [facility] 00:00:00 neoplasm of colon [facility] (procedure) [code = 925125332] Future Scheduled 2029-03-23 Screening for malignant [facility] 00:00:00 neoplasm of colon [facility] (procedure) [code = 099139554] Future Scheduled 2029-03-23 Screening for malignant [facility] 00:00:00 neoplasm of colon [facility] (procedure) [code = 602268146] Future Scheduled 2029-03-23 Screening for malignant [facility] 00:00:00 neoplasm of colon [facility] (procedure) [code = 541617373] Future Scheduled 2029-03-23 Screening for malignant [facility] 00:00:00 neoplasm of colon [facility] (procedure) [code = 174261280] Future Scheduled 2029-03-23 Screening for malignant [facility] 00:00:00 neoplasm of colon [facility] (procedure) [code = 887768321] Future Scheduled 2029-03-23 Screening for malignant [facility] 00:00:00 neoplasm of colon [facility] Ce [facility] (procedure) [code = 627585092] Future Scheduled 2029-03-23 Screening for malignant [facility] 00:00:00 neoplasm of colon [facility] (procedure) [code = 149324429] Future Scheduled 2029-03-23 Screening for malignant [facility] 00:00:00 neoplasm of colon [facility] (procedure) [code = 287326439] Future Scheduled 2029-03-23 Screening for malignant [facility] 00:00:00 neoplasm of colon [facility] (procedure) [code = 031139901] Future Scheduled 2029-03-23 Screening for malignant [facility] 00:00:00 neoplasm of colon [facility] (procedure) [code = 694366286] Future Scheduled 2029-03-23 Screening for malignant [facility] 00:00:00 neoplasm of colon [facility] (procedure) [code = 774490296] Future Scheduled 2022-08-[address] [...] 00:00:00 neoplasm of colon (procedure) [code = 094845045] Future Scheduled 2020-02-14 Screening for malignant [facility] 00:00:00 neoplasm of colon (procedure) [code = 110641067] Future Scheduled 2020-02-14 Screening for malignant [facility] 00:00:00 neoplasm of colon (procedure) [code = 535883195] Future Scheduled 2020-02-14 Screening for malignant [facility] 00:00:00 neoplasm of colon (procedure) [code = 314630676] Future Scheduled 2020-02-14 Screening for malignant [facility] 00:00:00 neoplasm of colon (procedure) [code = 794687445] Future Scheduled 2020-02-14 Screening for malignant [facility] 00:00:00 neoplasm of colon (procedure) [code = 138869167] Future Scheduled 2020-02-14 Screening for malignant [facility] 00:00:00 neoplasm of colon (procedure) [code = 644759299] Future Scheduled 2020-02-14 Screening for malignant [facility] 00:00:00 neoplasm of colon (procedure) [code = 230557956] Future Scheduled 2020-02-14 Screening for malignant [facility] 00:00:00 neoplasm of colon (procedure) [code = 354779968] Future Scheduled 2020-02-14 Screening for malignant [facility] 00:00:00 neoplasm of colon (procedure) [code = 375415556] Future Scheduled 2020-02-14 Screening for malignant [facility] 00:00:00 neoplasm of colon (procedure) [code = 768816149] Future Scheduled 2020-02-14 Screening for malignant [facility] 00:00:00 neoplasm of colon (procedure) [code = 143369952] Future Scheduled 2020-02-14 Screening for malignant [facility] 00:00:00 neoplasm of colon (procedure) [code = 499264188] Future Scheduled 2020-02-14 Screening for malignant [facility] 00:00:00 neoplasm of colon (procedure) [code = 496262871] Future Scheduled 2020-02-14 Screening for malignant [facility] 00:00:00 neoplasm of colon (procedure) [code = 873959114] Future Scheduled 2020-02-14 Screening for malignant [facility] 00:00:00 neoplasm of colon (procedure) [code = 866279674] Future Scheduled 2020-02-14 Screening for malignant [facility] 00:00:00 neoplasm of colon (procedure) [code = 455729368] Future Scheduled 2020-02-14 Screening for malignant [facility] 00:00:00 neoplasm of colon (procedure) [code = 087663485] Future Scheduled 2020-02-14 Screening for malignant [facility] 00:00:00 neoplasm of colon (procedure) [code = 899073084] Future Scheduled 2020-02-14 Screening for malignant [facility] 00:00:00 neoplasm of colon (procedure) [code = 375592473] Future Scheduled 2020-02-14 Screening for malignant [facility] 00:00:00 neoplasm of colon (procedure) [code = 803112677] Future Scheduled 2020-02-14 Screening for malignant [facility] 00:00:00 neoplasm of colon (procedure) [code = 907436127] Future Scheduled 2020-02-14 SHINGLES VACCINES ([address] [facility] 00:00:00 2) [code = [facility] VACCINES (1 of 2)] Future Scheduled 2020-02-14 Screening for malignant [facility] 00:00:00 neoplasm of colon (procedure) [code = 406975538] Future Scheduled 2020-02-14 SHINGLES VACCINES (1 of [...] [facility] 00:00:00 [code = 85086604] Medical Ce [facility]ter Future Scheduled 2005 Lipid panel (procedure) [facility] 00:00:00 [code = 01156218] Medical Ce [facility]ter Future Scheduled 2005 Lipid panel (procedure) [facility] 00:00:00 [code = 65953306] Medical Ce [facility]ter Future Scheduled 2005 Lipid panel (procedure) [facility] 00:00:00 [code = 70982975] Medical Ce [facility]ter Future Scheduled 2005 Lipid panel (procedure) [facility] 00:00:00 [code = 82426085] Medical Ce [facility]ter Future Scheduled 2005 Lipid panel (procedure) [facility] 00:00:00 [code = 28745865] Medical Ce [facility]ter Future Scheduled 2005 Lipid panel (procedure) [facility] 00:00:00 [code = 81699584] Medical Ce [facility]ter Future Scheduled 2005 Lipid panel (procedure) [facility] 00:00:00 [code = 45585003] Medical Ce [facility]ter Future Scheduled 2005 Lipid panel (procedure) [facility] 00:00:00 [code = 69703213] Medical Ce [facility]ter Future Scheduled 2005 Lipid panel (procedure) [facility] 00:00:00 [code = 61762967] Medical Ce [facility]ter Future Scheduled 2005 Lipid panel (procedure) [facility] 00:00:00 [code = 16642722] Medical Ce [facility]ter Future Scheduled 2005 Lipid panel (procedure) [facility] 00:00:00 [code = 17954260] Medical Ce [facility]ter Future Scheduled 2005 Lipid panel (procedure) [facility] 00:00:00 [code = 75367875] Medical Ce [facility]ter Future Scheduled 2005 Lipid panel (procedure) [facility] 00:00:00 [code = 66345474] Medical Ce [facility]ter Future Scheduled 2005 Lipid panel (procedure) [facility] 00:00:00 [code = 64342060] Medical Ce [facility]ter Future Scheduled 2005 Lipid panel (procedure) [facility] 00:00:00 [code = 18521076] Medical Ce [facility]ter Future Scheduled 2005 Lipid panel (procedure) [facility] 00:00:00 [code = 52588027] Medical Ce [facility]ter Future Scheduled 2005 Lipid panel (procedure) [facility] 00:00:00 [code = 91735484] Medical Ce [facility]ter Future Scheduled 2005 Lipid panel (procedure) [facility] 00:00:00 [code = 65302977] Medical Ce [facility]ter Future Scheduled 2005 Lipid panel (procedure) [facility] 00:00:00 [code = 12548593] Medical Ce [facility]ter Future Scheduled 2005 Lipid panel (procedure) [facility] 00:00:00 [code = 83285466] Medical Ce [facility]ter Future Scheduled 2005 Lipid panel (procedure) [facility] 00:00:00 [code = 13030443] Medical Ce [facility]ter Future Scheduled 2005 Lipid panel (procedure) [facility] 00:00:00 [code = 42972736] Medical Ce [facility]ter Future Scheduled 2005 Lipid panel (procedure) [facility] 00:00:00 [code = 96702901] Medical Ce [facility]ter Future Scheduled 2005 Lipid panel (procedure) [facility] 00:00:00 [code = 26698882] Medical Ce [facility]ter Future Scheduled 1989 DTAP/TDAP/TD [...] [facility] [code = COVID-[address] VACCINE (#1)] Future Scheduled 1970 COVID-19 [...] colon Medical Ce [facility]ter (procedure) [code = 139579786] Future Scheduled 1970 Screening for malignant [facility] 00:00:00 neoplasm of colon [facility] Ce [facility] (procedure) [code = 455903191] Future Scheduled 1970 Sigmoidoscopy [[facility] Future Scheduled 1970 CT Colonography (combo) [facility] 00:00:00 [code = CT Colonography [facility] (combo)] Future Scheduled 1970 Screening for malignant [facility] 00:00:00 neoplasm of colon Medical Ce [facility] (procedure) [code = 185017437] Future Scheduled 1970 Screening for malignant [facility] 00:00:00 neoplasm of colon Medical Ce [facility] (procedure) [code = 435891143] Future Scheduled 1970 Sigmoidoscopy [code = [facility]] [facility] Future Scheduled 1970 CT Colonography (combo) [facility] 00:00:00 [code = CT Colonography [facility] (combo)] Future Scheduled 1970 Screening for malignant [facility] 00:00:00 neoplasm of colon Medical Ce [facility] (procedure) [code = 868416279] Future Scheduled 1970 Screening for malignant [facility] 00:00:00 neoplasm of colon Medical Ce [facility] (procedure) [code = 934304629] Future Scheduled 1970 Sigmoidoscopy [facility]code = [facility]] [facility] Future Scheduled 1970 CT Colonography (combo) [facility] 00:00:00 [code = [facility] Future Scheduled 1970 Screening for malignant [facility] 00:00:00 neoplasm of colon Medical Ce [facility] (procedure) [code = 219319792] Future Scheduled 1970 Screening for malignant [facility] 00:00:00 neoplasm of colon Medical Ce [facility] (procedure) [code = 568408668] Future Scheduled 1970 Sigmoidoscopy [code = [facility]] [facility] Future Scheduled 1970 CT Colonography (combo) [facility] 00:00:00 [code = [facility] ([facility])] Future Scheduled 1970 Screening for malignant [facility] 00:00:00 neoplasm of colon Medical Ce [facility] (procedure) [code = 528536267] Future Scheduled 1970 Screening for malignant [facility] 00:00:00 neoplasm of colon Medical Ce [facility] (procedure) [code = 868206480] Future Scheduled 1970 Sigmoidoscopy [facility]code = [facility]] [facility] Future Scheduled 1970 CT Colonography (combo) [facility] 00:00:00 [code = CT [facility] ([facility])] Future Scheduled 1970 Screening for malignant [facility] 00:00:00 neoplasm of colon Medical Ce [facility] (procedure) [code = 171785528] Future Scheduled 1970 Screening for malignant [facility] 00:00:00 neoplasm of colon Medical Ce [facility] (procedure) [code = 459550205] Future Scheduled 1970 Sigmoidoscopy [code = [facility]] [facility] Future Scheduled 1970 CT Colonography (combo) [facility] 00:00:00 [code = CT [facility] ([facility])] Future Scheduled 1970 Screening for malignant [facility] 00:00:00 neoplasm of colon Medical Ce [facility]ter (procedure) [code = 358223226] Future Scheduled 1970 Screening for malignant [facility] 00:00:00 neoplasm of colon Medical Ce [facility] (procedure) [code = 157718311] Future Scheduled 1970 Sigmoidoscopy [code = [facility]] [facility] Future Scheduled 1970 CT Colonography (combo) [facility] 00:00:00 [code = CT [facility] ([facility])] Future Scheduled 1970 Screening for malignant [facility] 00:00:00 neoplasm of colon Medical Ce [facility] (procedure) [code = 926975267] Future Scheduled 1970 Screening for malignant [facility] 00:00:00 neoplasm of colon Medical Ce [facility] (procedure) [code = 200347258] Future Scheduled 1970 Sigmoidoscopy [code = [facility]] [facility] Future Scheduled 1970 CT Colonography (combo) [facility] 00:00:00 [code = CT [facility] ([facility])] Future Scheduled 1970 Screening for malignant [facility] 00:00:00 neoplasm of colon Medical Ce [facility] (procedure) [code = 254087096] Future Scheduled 1970 Screening for malignant [facility] 00:00:00 neoplasm of colon Medical Ce [facility] (procedure) [code = 586816643] Future Scheduled 1970 Sigmoidoscopy [code = [facility]oscopy] [facility] Future Scheduled 1970 CT Colonography (combo) [facility] 00:00:00 [code = [facility] ([facility])] Future Scheduled 1970 Screening for malignant [facility] 00:00:00 neoplasm of colon Medical Ce [facility] (procedure) [code = 731629844] Future Scheduled 1970 Screening for malignant [facility] 00:00:00 neoplasm of colon Medical Ce [facility] (procedure) [code = 865419118] Future Scheduled 1970 Sigmoidoscopy [code = [facility]] [facility] Future Scheduled 1970 CT Colonography (combo) [facility] 00:00:00 [code = [facility] ([facility])] Future Scheduled 1970 Screening for malignant [facility] 00:00:00 neoplasm of colon Medical Ce [facility]ter (procedure) [code = 057952306] Future Scheduled 1970 Screening for malignant [facility] 00:00:00 neoplasm of colon Medical Ce [facility]ter (procedure) [code = 791521842] Future Scheduled 1970 Sigmoidoscopy [code = [facility]] [facility] Future Scheduled 1970 CT Colonography (combo) [facility] 00:00:00 [code = [facility] ([facility])] Future Scheduled 1970 Screening for malignant [facility] 00:00:00 neoplasm of colon Medical Ce [facility] (procedure) [code = 874761742] Future Scheduled 1970 Screening for malignant [facility] 00:00:00 neoplasm of colon Medical Ce [facility]ter (procedure) [code = 233513092] Future Scheduled 1970 Sigmoidoscopy [code = [facility]] [facility] Future Scheduled 1970 CT Colonography (combo) [facility] 00:00:00 [code = [facility] ([facility])] Future Scheduled 1970 Screening for malignant [facility] 00:00:00 neoplasm of colon Medical Ce [facility]ter (procedure) [code = 338824494] Future Scheduled 1970 Screening for malignant [facility] 00:00:00 neoplasm of colon Medical Ce [facility]ter (procedure) [code = 546254007] Future Scheduled 1970 Sigmoidoscopy [code = [facility]oscopy] [facility] Future Scheduled 1970 CT Colonography (combo) [facility] 00:00:00 [code = [facility] ([facility])] Future Scheduled 1970 Screening for malignant [facility] 00:00:00 neoplasm of colon Medical Ce [facility]ter (procedure) [code = 235503165] Future Scheduled 1970 Screening for malignant [facility] 00:00:00 neoplasm of colon Medical Ce [facility]ter (procedure) [code = 293704222] Future Scheduled 1970 Sigmoidoscopy [code = [facility]] [facility] Future Scheduled 1970 CT Colonography (combo) [facility] 00:00:00 [code = [facility] ([facility])] Future Scheduled 1970 Screening for malignant [facility] 00:00:00 neoplasm of colon Medical Ce [facility]ter (procedure) [code = 627181789] Future Scheduled 1970 Screening for malignant [facility] 00:00:00 neoplasm of colon Medical Ce [facility]ter (procedure) [code = 538189332] Future Scheduled 1970 Sigmoidoscopy [code = [facility]] [facility] Future Scheduled 1970 CT Colonography (combo) [facility] 00:00:00 [code = CT Colonography [facility] (combo)] Future Scheduled 1970 Screening for malignant [facility] 00:00:00 neoplasm of colon Medical Ce [facility]ter (procedure) [code = 229285974] Future Scheduled 1970 Screening for malignant [facility] 00:00:00 neoplasm of colon Medical Ce [facility]ter (procedure) [code = 540735371] Future Scheduled 1970 Sigmoidoscopy [code = [facility]] [facility] Future Scheduled 1970 CT Colonography (combo) [facility] 00:00:00 [code = [facility] ([facility])] Future Scheduled 1970 Screening for malignant [facility] 00:00:00 neoplasm of colon Medical Ce [facility]ter (procedure) [code = 672776652] Future Scheduled 1970 Screening for malignant [facility] 00:00:00 neoplasm of colon Medical Ce [facility]ter (procedure) [code = 985490290] Future Scheduled 1970 Sigmoidoscopy [code = [facility]] [facility] Future Scheduled 1970 CT Colonography (combo) [facility] 00:00:00 [code = [facility] ([facility])] Future Scheduled 1970 Screening for malignant [facility] 00:00:00 neoplasm of colon Medical Ce [facility]ter (procedure) [code = 558109576] Future Scheduled 1970 Screening for malignant [facility] 00:00:00 neoplasm of colon Medical Ce [facility]ter (procedure) [code = 251560492] Future Scheduled 1970 Sigmoidoscopy [code = [facility] 00:[facility] S[facility]oscopy] [facility] Future Scheduled 1970 CT Colonography (combo) [facility] 00:00:00 [code = [facility] ([facility])] Future Scheduled 1970 Screening for malignant [facility] 00:00:00 neoplasm of colon Medical Ce [facility]ter (procedure) [code = 563474368] Future Scheduled 1970 Screening for malignant [facility] 00:00:00 neoplasm of colon Medical Ce nter (procedure) [code = 340174734] Future Scheduled 1970 Sigmoidoscopy [facility]code [facility]oscopy] Medical Seda r Future Scheduled 1970 CT Colonography (combo) [facility] 00:00:00 [code = CT Colon[facility] ([facility] Future Scheduled 1970 Screening for malignant [facility] 00:00:00 neoplasm of colon Medical Ce nter (procedure) [code = 771516132] Future Scheduled 1970 Screening for malignant [facility] 00:00:00 neoplasm of colon Medical Ce nter (procedure) [code = 635906033] Future Scheduled 1970 Sigmoidoscopy [facility]code [facility] Sigmoidoscopy] Medical Seda r Future Scheduled 1970 CT Colonography (combo) [facility] 00:00:00 [code = CT Colon[facility] ([facility])] Future Scheduled 1970 Screening for malignant [facility] 00:00:00 neoplasm of colon Medical Ce nter (procedure) [code = 832613394] Future Scheduled 1970 Screening for malignant [facility] 00:00:00 neoplasm of colon Medical Ce nter (procedure) [code = 495822331] Future Scheduled 1970 Sigmoidoscopy [facility]code [facility]] Medical Cent[facility] r Future Scheduled 1970 CT Colonography (combo) [facility] 00:00:00 [code = CT [facility] ([facility])] Future Scheduled 1970 Screening for malignant [facility] 00:00:00 neoplasm of colon Medical Ce nter (procedure) [code = 330216892] Future Scheduled 1970 Screening for malignant [facility] 00:00:00 neoplasm of colon Medical Ce nter (procedure) [code = 502515990] Future Scheduled 1970 Sigmoidoscopy [facility]code = [facility] S[facility]oscopy] Medical Cente r Future Scheduled 1970 CT Colonography (combo) [facility] 00:00:00 [code = CT Colonography [facility] ([facility])] Future Scheduled 1970 Screening for malignant [facility] 00:00:00 neoplasm of colon Medical Ce nter (procedure) [code = 855516603] Future Scheduled 1970 Screening for malignant [facility] 00:00:00 neoplasm of colon Medical Ce nter (procedure) [code = 726256034] Future Scheduled 1970 Sigmoidoscopy [code = [facility] [...] Test 00:00:00 [code = CT Colonography [facility] (combo)] Future Scheduled 1970 Screening for malignant [facility] 00:00:00 neoplasm of colon Medical Ce nter (procedure) [code = 818001921] Future Scheduled 1970 Screening for malignant [facility] 00:00:00 neoplasm of colon Medical Ce nter (procedure) [code = 551960486] Future Scheduled 1970 Sigmoidoscopy [facility]code [facility]] [facility] Start End Encounter Admission Attending Care Care Encounter Source Date/Time Date/Time Type Type Clinicians Facility Department ID 2020-02-23 Inpatient HCAPM LENNY [id number] [facility] 18:42:00 89 [facility] 2020-02-17 Inpatient EM Avtar[facility] [id number] [facility] 00:22:00 Oladipo 75 [facility] 2020-01-05 Inpatient UR Perea, HCAPM MEDI.01 [id number] [facility] 20:23:00 Mark 40 [facility] 2019-12-13 Inpatient HCAMN JULIA [id number] [facility] 17:52:[address] [facility] 2022-03-29 2022-03-29 Emergency EM White, [facility] AERS [id number] [facility] 14:26:00 16:45:00 Steve 28 [facility] 2022-03-29 2022-03-29 Emergency EM JOE Urias HCACL [id number] [facility] 14:26:00 16:45:00 Steve [id number] [facility] 2022-03-25 2022-03-26 Inpatient E DHAMOTHARAN BL MED [id number] [facility] 13:38:00 10:16:00 , YESSI 2022-03-15 2022-03-18 Emergency E RADHA, [facility] MED [id number] [facility] 13:36:00 18:59:00 [facility] 2022-03-13 2022-03-13 Emergency [facility] [id number] [place] 15:33:00 20:25:00 [facility] 2022-03-13 2022-03-13 Emergency [facility] [id number] [place] 15:33:00 20:25:00 [facility] 2022-03-13 2022-03-13 Outpatient RONALD, [facility] [id number] [place] 00:00:00 00:00:00 [facility] 2022-03-06 2022-03-09 [facility] Emergency [id number] [facility] 12:16:00 12:55:00 2022-03-06 2022-03-09 [facility] [id number] 12:16:00 12:55:00 Encounter Dee Dee Montalvo Fang-Ying M edical Heinen, [facility]. [facility], León Odell Colin 2022-03-06 2022-03-09 [facility] [id number] 12:16:00 12:55:00 Encounter Dee Dee Montalvo Fang-Ying M edical Heinen, Allison P. [facility] Anya, León Odell Colin 2022-03-06 2022-03-06 Outpatient [facility] [id number] [address] [place] [address] 00:00:00 23:59:00 Lorna Medicin e 2022-03-06 2022-03-06 Orders [facility] [id number] 00:00:00 00:00:00 Only [facility] 2022-03-06 2022-03-06 Travel [facility] [id number] [facility] 00:[facility]00 00:00:00 [facility] 2022-03-06 2022-03-06 Orders [facility] [id number] 00:00:00 00:00:00 Only [facility] 2022-03-06 2022-03-06 Travel [facility] [id number] [facility] 00:00:00 00:00:00 [facility] 2022-02-18 2022-02-20 Emergency Teddy Carbajal [facility] [id number] [place] 13:58:00 11:55:00 Nehal [facility] Rufino Lazaro Roberto H 2022-02-18 2022-02-20 [facility] [id number] [place] 13:58:00 11:55:00 Nehal [facility] Rufino Lazaro Roberto H 2022-02-18 2022-02-18 [facility] [id number] [place] 15:19:05 15:23:18 [facility] 2022-02-18 2022-02-18 [facility] [id number] [place] 13:58:00 13:58:00 [facility] 2022-02-18 2022-02-18 Outpatient MASCIANGELO [facility] [id number] [place] 00:00:00 00:00:00 , OSCAR blanchard 2022-02-07 2022-02-11 [facility] [id number] [place] 13:40:00 13:22:00 [facility] Alves 2022-02-07 2022-02-11 [facility] [id number] [place] 13:40:00 13:22:00 Encounter Yin, [facility] Teresa Alves 2022-02-07 2022-02-07 Outpatient 1 MEGHAN ISLAS [facility] [id number] [place] 13:40:00 13:40:00 [facility] 2022-01-30 2022-01-30 Emergency SEAN Pacheco [facility] [id number] [facility] 17:02:00 18:29:00 Dwain 53 [facility] are [facility] 2022-01-30 2022-01-30 Emergency SEAN Pacheco [facility] [id number] [facility] 17:02:00 18:29:00 Dwain [id number] [facility] 2022-01-22 2022-01-22 Emergency [facility] [id number] [place] 17:24:00 20:39:00 [facility] 2022-01-22 2022-01-22 Emergency [facility] [id number] [place] 17:24:00 20:39:00 [facility] 2022-01-16 2022-01-21 Emergency Raymon Martin [facility] [id number] [place] 11:04:00 18:08:00 Karin Bassett [facility] Darrion Craig [facility] P 2022-01-16 2022-01-21 Emergency Raymon Martin [facility] [id number] [place] 11:04:00 18:08:00 Karin Bassett [facility] Darrion [facility] 2022-01-19 2022-01-19 Outpatient [facility] [id number] [place] 12:34:08 13:29:31 [facility] 2022-01-16 2022-01-16 Outpatient [facility] [id number] [place] 19:42:28 20:01:28 [facility] 2022-01-16 2022-01-16 Outpatient 1 DANYELLE [facility] [id number] [place] 11:04:00 11:04:00 KARIN blanchard 2022-01-10 2022-01-11 Emergency Bert Reed [facility] [id number] Maged 10:58:00 11:20:00 Helene Ring [facility] Merissa Richards 2022-01-10 2022-01-11 Emergency Bert Reed [facility] [id number] Maged 10:58:00 11:20:00 Helene Ring [facility] Merissa Richards 2022-01-10 2022-01-10 Outpatient 1 JUSTIN, [facility] [id number] [place] 10:58:00 10:58:00 HELENE [facility] 2022-01-08 2022-01-09 Emergency [facility] [id number] [place] 17:57:00 02:50:00 [facility] 2022-01-08 2022-01-09 Emergency [facility] [id number] [place] 17:57:00 02:50:00 [facility] 2022-01-08 2022-01-08 Emergency [facility] [id number] [place] 21:40:34 21:50:19 [facility] 2021-09-23 2021-09-23 Emergency EM Raffaele Levi HCACL AERS [id number] [facility] 19:35:00 21:10:[address] [place] [address] 2021-09-13 2021-09-13 Emergency EM Raffaele Levi HCACL AERS [id number] [facility] 14:57:00 16:37:00 06 [facility] 2021-07-27 2021-07-27 Emergency EM Koussayer, HCAMN JULIA [id number] [facility] 10:15:00 12:36:00 Juan Jose 17 [facility] 2021-07-22 2021-07-22 Emergency EM Marcelina, [facility]AC[facility] AERS [id number] [facility] 04:25:00 08:20:00 Gabriella 74 [facility] 2021-06-27 2021-06-27 Emergency EM White, HCACL AERS [id number] [facility] 15:31:00 17:37:00 Steve 17 [facility] 2021-04-28 2021-05-01 Inpatient EM Aisha, HCACL [facility] [id number] [facility] 21:05:00 14:18:00 Christamisher 03 [facility] 2020-02-24 2020-02-24 Outpatient Eliazar HCACL LABO [id number] [facility] 07:51:00 07:51:00 Mark 96 [facility] 2020-02-18 2020-02-18 Outpatient Avtar, HCACL LABO [id number] [facility] 00:26:00 00:26:00 Oladipo 05 [facility] 2020-01-05 2020-01-05 Outpatient JOE Perea [id number] [facility] 23:52:00 23:52:00 Mark 24 [facility] 2017-11-02 2017-11-02 Emergency E [facility] MED [id number] 08:33:00 08:33:00 [facility] 2017-08-05 2017-08-05 Outpatient [facility] [id number] [place] 00:00:00 00:00:00 [facility] 2017-07-28 2017-07-28 Outpatient [facility] [id number] [place] 00:00:00 00:00:00 [facility] 2017-06-24 2017-06-24 Outpatient [facility] [id number] [place] 00:00:00 00:00:00 [facility] 2017-06-22 2017-06-22 Emergency [facility] [id number] [place] 21:37:29 21:37:29 [facility] 2017-06-22 2017-06-22 Emergency [facility] MED [id number] [place] 21:06:00 21:06:00 [facility] 2017-06-22 2017-06-22 Outpatient [facility] [id number] [place] 10:02:31 10:02:31 [facility] 2017-06-09 2017-06-09 Outpatient [facility] [id number] [place] 00:00:00 00:00:00 [facility] 2017-06-09 2017-06-09 Outpatient [facility] [id number] [place] 00:00:00 00:00:00 [facility] 2017-05-08 2017-05-08 Emergency [facility] MED [id number] [place] 01:04:44 01:04:44 [facility] 2017-05-05 2017-05-05 Emergency E [facility] MED [id number] [facility] 08:11:00 08:11:00 [facility] 2017-04-15 2017-04-15 Emergency E [facility] [id number] [facility] 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 BASIC METABOLIC [id number] 14:56:00 Test Item Value Reference Range Interpretation [...] MG/DL 70-110 N - XR CHEST 1 [id number] 00:00:00 [facility]AB[facility] JOSEPH : 1970 Sex: M FAX: Steve Urias MD [phone] [place]: [place] St: REG Name: MARIA ISABEL JOSEPH FSED : 1970 Age/S: 52/M [address] [facility] Unit #: [id number] Loc: [place] [address] Phys: Steve Urias MD Acct: [id number] DisDate: Status: REG ER PHONE #: Exam Date: 03/29/2022 1501 FAX #: Reason: Weakness EXAMS: CPT CODE: [id number] XR CHEST 1 V 54055 PROCEDURE INFORMATION: Exam: XR Chest Exam date [...] 03/29/2022 (1531) PAGE 1 Signed ReportHEPATIC FUNCTION [id number] 06:45:03 Test Item Value Reference Range Interpretation [...] (test code = 13 U/L 6-55 347) Risk Reduction Counselor ID - ERWIN WBASIC METABOLIC [id number] 06:45:02 Test Item Value Reference Range Interpretation [...] S NOT APPLICABLE FOR DIALYSIS PATIEN TS. Risk Reduction Counselor ID - ERWIN WCBC W/PLT COUNT & AUTO [id number] 06:26:54 Test Item Value Reference Range Interpretation [...] (BEAKER) (test code = 2801) U/S, RENAL, [id number] 19:23:00Reason for exam:->[facility] 1970 Sex: MFINAL [...] SARS-Co V-2 (test code = target nucleic 97526-1) acids are not detected in thi s [...] revoked sooner. Fact Sheet for Healthcare Providers: https://www.AdMobilize.Venus Concept/Documents/Xp ert%20Xpress%20SAR S%20CoV-2/Fact%20S heets/302-3802%20S ARS-COV-2%20HEALTH CARE%20PROVIDERS%2 0FACT%20SHEET.pdf Fact Sheet for Healthcare Patients: https://www.youcalc/Documents/Xp ert%20Xpress%20SAR S%20CoV-2/Fact%20S heets/3023801%20S ARS-COV-2%20PATIEN T%20FACT%20SHEET.p df Lab Interpretation Normal (test code = 25500-9) [facility]2022-03-06 19:17:07 Test Item Value Reference Interpretation Comments Range SARS-COV2/RT-PCR Negative Negative The SARS-Co V-2 (test code = target nucleic 29412-6) acids are not detected in thi s [...] revoked sooner. Fact Sheet for Healthcare Providers: https://www.youcalc/Documents/Xp ert%20Xpress%20SAR S%20CoV-2/Fact%20S heets/3023802%20S ARS-COV-2%20HEALTH CARE%20PROVIDERS%2 0FACT%20SHEET.pdf Fact Sheet for Healthcare Patients: https://www.youcalc/Documents/Xp ert%20Xpress%20SAR S%20CoV-2/Fact%20S heets/302-3801%20S ARS-COV-2%20PATIEN T%20FACT%20SHEET.p df Lab Interpretation Normal (test code = 70439-3) [facility]As[facility]omatic ONLY)2022-03-06 19:17:07 Test Item Value Reference Interpretation Comments Range SARS-COV2/RT-PCR Negative Negative The SARS-Co V-2 (test code = target nucleic 78463-9) acids are not detected in thi s [...] revoked sooner. Fact Sheet for Healthcare Providers: https://www.youcalc/Documents/Xp ert%20Xpress%20SAR S%20CoV-2/Fact%20S heets/302-3802%20S ARS-COV-2%20HEALTH CARE%20PROVIDERS%2 0FACT%20SHEET.pdf Fact Sheet for Healthcare Patients: https://www.youcalc/Documents/Xp ert%20Xpress%20SAR S%20CoV-2/Fact%20S heets/302-3801%20S ARS-COV-2%20PATIEN T%20FACT%20SHEET.p df Lab Interpretation Normal (test code = 57376-1) [facility]As[facility] ONLY)2022-03-06 19:17:07 Test Item Value Reference Interpretation Comments Range SARS-COV2/RT-PCR Negative Negative The SARS-Co V-2 (test code = target nucleic 90784-1) acids are not detected in thi s [...] revoked sooner. Fact Sheet for Healthcare Providers: https://www.youcalc/Documents/Xp ert%20Xpress%20SAR S%20CoV-2/Fact%20S heets/302-3802%20S ARS-COV-2%20HEALTH CARE%20PROVIDERS%2 0FACT%20SHEET.pdf Fact Sheet for Healthcare Patients: https://www.youcalc/Documents/Xp ert%20Xpress%20SAR S%20CoV-2/Fact%20S heets/302-3801%20S ARS-COV-2%20PATIEN T%20FACT%20SHEET.p df Lab Interpretation Normal (test code = 66184-9) [facility] (As[facility]omatic ONLY)2022-03-06 19:17:07 Test Item Value Reference Interpretation Comments Range SARS-COV2/RT-PCR Negative Negative The SARS-Co V-2 (test code = target nucleic 27215-4) acids are not detected in thi s [...] revoked sooner. Fact Sheet for Healthcare Providers: https://www.youcalc/Documents/Xp ert%20Xpress%20SAR S%20CoV-2/Fact%20S heets/302-3692%20S ARS-COV-2%20HEALTH CARE%20PROVIDERS%2 0FACT%20SHEET.pdf Fact Sheet for Healthcare Patients: https://www.youcalc/Documents/Xp ert%20Xpress%20SAR S%20CoV-2/Fact%20S heets/302-6911%20S ARS-COV-2%20PATIEN T%20FACT%20SHEET.p df Lab Interpretation Normal (test code = 53581-8) [facility]As[facility]omatic ONLY)2022-03-06 19:17:07 Test Item Value Reference Interpretation Comments Range SARS-COV2/RT-PCR Negative Negative The SARS-Co V-2 (test code = target nucleic 38144-8) acids are not detected in thi s [...] revoked sooner. Fact Sheet for Healthcare Providers: https://www.youcalc/Documents/Xp ert%20Xpress%20SAR S%20CoV-2/Fact%20S heets/302-3802%20S ARS-COV-2%20HEALTH CARE%20PROVIDERS%2 0FACT%20SHEET.pdf Fact Sheet for Healthcare Patients: https://www.youcalc/Documents/Xp ert%20Xpress%20SAR S%20CoV-2/Fact%20S heets/302-3801%20S ARS-COV-2%20PATIEN T%20FACT%20SHEET.p df Lab Interpretation Normal (test code = 01855-2) [facility]As[facility] ONLY)2022-03-06 19:17:07 Test Item Value Reference Interpretation Comments Range SARS-COV2/RT-PCR Negative Negative The SARS-Co V-2 (test code = target nucleic 81848-7) acids are not detected in thi s [...] revoked sooner. Fact Sheet for Healthcare Providers: https://www.youcalc/Documents/Xp ert%20Xpress%20SAR S%20CoV-2/Fact%20S heets/302-3802%20S ARS-COV-2%20HEALTH CARE%20PROVIDERS%2 0FACT%20SHEET.pdf Fact Sheet for Healthcare Patients: https://www.youcalc/Documents/Xp ert%20Xpress%20SAR S%20CoV-2/Fact%20S heets/302-3801%20S ARS-COV-2%20PATIEN T%20FACT%20SHEET.p df Lab Interpretation Normal (test code = 78392-7) [facility] ONLY)2022-03-06 19:17:07 Test Item Value Reference Interpretation Comments Range SARS-COV2/RT-PCR Negative Negative The SARS-Co V-2 (test code = target nucleic 13375-2) acids are not detected in thi s [...] revoked sooner. Fact Sheet for Healthcare Providers: https://www.youcalc/Documents/Xp ert%20Xpress%20SAR S%20CoV-2/Fact%20S heets/302-3802%20S ARS-COV-2%20HEALTH CARE%20PROVIDERS%2 0FACT%20SHEET.pdf Fact Sheet for Healthcare Patients: https://www.youcalc/Documents/Xp ert%20Xpress%20SAR S%20CoV-2/Fact%20S heets/302-3801%20S ARS-COV-2%20PATIEN T%20FACT%20SHEET.p df Lab Interpretation Normal (test code = 67693-5) [facility] ONLY)2022-03-06 19:17:07 Test Item Value Reference Interpretation Comments Range SARS-COV2/RT-PCR Negative Negative The SARS-Co V-2 (test code = target nucleic 25703-7) acids are not detected in thi s [...] revoked sooner. Fact Sheet for Healthcare Providers: https://www.youcalc/Documents/Xp ert%20Xpress%20SAR S%20CoV-2/Fact%20S heets/302-3802%20S ARS-COV-2%20HEALTH CARE%20PROVIDERS%2 0FACT%20SHEET.pdf Fact Sheet for Healthcare Patients: https://www.youcalc/Documents/Xp ert%20Xpress%20SAR S%20CoV-2/Fact%20S heets/302-3801%20S ARS-COV-2%20PATIEN T%20FACT%20SHEET.p df Lab Interpretation Normal (test code = 34463-7) [facility] ONLY)2022-03-06 19:17:07 Test Item Value Reference Interpretation Comments Range SARS-COV2/RT-PCR Negative Negative The SARS-Co V-2 (test code = target nucleic 04883-0) acids are not detected in thi s [...] SARS-CoV-2 in a nasopharyngeal swab specimen [facility] from individual s suspected of [...] revoked sooner. Fact Sheet for Healthcare Providers: https://www.youcalc/Documents/Xp ert%20Xpress%20SAR S%20CoV-2/Fact%20S heets/302-3802%20S ARS-COV-2%20HEALTH CARE%20PROVIDERS%2 0FACT%20SHEET.pdf Fact Sheet for Healthcare Patients: https://www.youcalc/Documents/Xp ert%20Xpress%20SAR S%20CoV-2/Fact%20S heets/302-3801%20S ARS-COV-2%20PATIEN T%20FACT%20SHEET.p df Lab Interpretation Normal (test code = 24994-3) [facility] ONLY)2022-03-06 19:17:07 Test Item Value Reference Interpretation Comments Range SARS-COV2/RT-PCR Negative Negative The SARS-Co V-2 (test code = target nucleic 48207-8) acids are not detected in thi s [...] revoked sooner. Fact Sheet for Healthcare Providers: https://www.youcalc/Documents/Xp ert%20Xpress%20SAR S%20CoV-2/Fact%20S heets/302-3802%20S ARS-COV-2%20HEALTH CARE%20PROVIDERS%2 0FACT%20SHEET.pdf Fact Sheet for Healthcare Patients: https://www.youcalc/Documents/Xp ert%20Xpress%20SAR S%20CoV-2/Fact%20S heets/302-3801%20S ARS-COV-2%20PATIEN T%20FACT%20SHEET.p df Lab Interpretation Normal (test code = 50528-7) [facility] ONLY)2022-03-06 19:17:07 Test Item Value Reference Interpretation Comments Range SARS-COV2/RT-PCR Negative Negative The SARS-Co V-2 (test code = target nucleic 31026-1) acids are not detected in thi s [...] revoked sooner. Fact Sheet for Healthcare Providers: https://www.youcalc/Documents/Xp ert%20Xpress%20SAR S%20CoV-2/Fact%20S heets/302-3802%20S ARS-COV-2%20HEALTH CARE%20PROVIDERS%2 0FACT%20SHEET.pdf Fact Sheet for Healthcare Patients: https://www.youcalc/Documents/Xp ert%20Xpress%20SAR S%20CoV-2/Fact%20S heets/302-3801%20S ARS-COV-2%20PATIEN T%20FACT%20SHEET.p df Lab Interpretation Normal (test code = 22496-6) [facility] ONLY)2022-03-06 19:17:07 Test Item Value Reference Interpretation Comments Range SARS-COV2/RT-PCR Negative Negative The SARS-Co V-2 (test code = target nucleic 16054-4) acids are not detected in thi s [...] revoked sooner. Fact Sheet for Healthcare Providers: https://www.youcalc/Documents/Xp ert%20Xpress%20SAR S%20CoV-2/Fact%20S heets/302-3802%20S ARS-COV-2%20HEALTH CARE%20PROVIDERS%2 0FACT%20SHEET.pdf Fact Sheet for Healthcare Patients: https://wwwbeRecruited/Documents/Xp ert%20Xpress%20SAR S%20CoV-2/Fact%20S heets/302-3801%20S ARS-COV-2%20PATIEN T%20FACT%20SHEET.p df Lab Interpretation Normal (test code = 92974-3) [facility] ONLY)2022-03-06 19:17:07 Test Item Value Reference Interpretation Comments Range SARS-COV2/RT-PCR Negative Negative The SARS-Co V-2 (test code = target nucleic 54027-8) acids are not detected in thi s [...] revoked sooner. Fact Sheet for Healthcare Providers: https://www.youcalc/Documents/Xp ert%20Xpress%20SAR S%20CoV-2/Fact%20S heets/302-3802%20S ARS-COV-2%20HEALTH CARE%20PROVIDERS%2 0FACT%20SHEET.pdf Fact Sheet for Healthcare Patients: https://www.youcalc/Documents/Xp ert%20Xpress%20SAR S%20CoV-2/Fact%20S heets/302-3801%20S ARS-COV-2%20PATIEN T%20FACT%20SHEET.p df Lab Interpretation Normal (test code = 74024-3) [facility])2022-03-06 19:17:07 Test Item Value Reference Interpretation Comments Range SARS-COV2/RT-PCR Negative Negative The SARS-Co V-2 (test code = target nucleic 19242-5) acids are not detected in thi s [...] revoked sooner. Fact Sheet for Healthcare Providers: [email or web address]://[email or web address]/Xp ert%20Xpress%20SAR S%20CoV-2/Fact%20S heets/302-3802%20S ARS-COV-2%20HEALTH CARE%20PROVIDERS%2 0FACT%20SHEET.pdf Fact Sheet for Healthcare Patients: [email or web address]/Xp ert%20Xpress%20SAR S%20CoV-2/Fact%20S heets/302-3801%20S ARS-COV-2%20PATIEN T%20FACT%20SHEET.p df Lab Interpretation Normal (test code = 30270-8) [facility]2022-03-06 19:17:07 Test Item Value Reference Interpretation Comments Range SARS-COV2/RT-PCR Negative Negative The SARS-Co V-2 (test code = target nucleic 29518-5) acids are not detected in thi s [...] revoked sooner. Fact Sheet for Healthcare Providers: [email or web address]://[email or web address]/Documents/Xp ert%20Xpress%20SAR S%20CoV-2/Fact%20S heets/302-3802%20S ARS-COV-2%20HEALTH CARE%20PROVIDERS%2 0FACT%20SHEET.pdf Fact Sheet for Healthcare Patients: https://www.youcalc/Documents/Xp ert%20Xpress%20SAR S%20CoV-2/Fact%20S heets/302-3801%20S ARS-COV-2%20PATIEN T%20FACT%20SHEET.p df Lab Interpretation Normal (test code = 85483-3) [facility] 19:17:07 Test Item Value Reference Interpretation Comments Range SARS-COV2/RT-PCR Negative Negative The SARS-Co V-2 (test code = target nucleic 78724-6) acids are not detected in thi s [...] revoked sooner. Fact Sheet for Healthcare Providers: https://www.youcalc/Documents/Xp ert%20Xpress%20SAR S%20CoV-2/Fact%20S heets/302-3802%20S ARS-COV-2%20HEALTH CARE%20PROVIDERS%2 0FACT%20SHEET.pdf Fact Sheet for Healthcare Patients: https://www.youcalc/Documents/Xp ert%20Xpress%20SAR S%20CoV-2/Fact%20S heets/302-3801%20S ARS-COV-2%20PATIEN T%20FACT%20SHEET.p df Lab Interpretation Normal (test code = 66920-8) [facility]2022-03-06 19:17:07 Test Item Value Reference Interpretation Comments Range SARS-COV2/RT-PCR Negative Negative The SARS-Co V-2 (test code = target nucleic 44598-1) acids are not detected in thi s [...] revoked sooner. Fact Sheet for Healthcare Providers: https://www.youcalc/Documents/Xp ert%20Xpress%20SAR S%20CoV-2/Fact%20S heets/302-3802%20S ARS-COV-2%20HEALTH CARE%20PROVIDERS%2 0FACT%20SHEET.pdf Fact Sheet for Healthcare Patients: https://www.youcalc/Documents/Xp ert%20Xpress%20SAR S%20CoV-2/Fact%20S heets/302-3801%20S ARS-COV-2%20PATIEN T%20FACT%20SHEET.p df Lab Interpretation Normal (test code = 14240-0) [facility] 19:17:07 Test Item Value Reference Interpretation Comments Range SARS-COV2/RT-PCR Negative Negative The SARS-Co V-2 (test code = target nucleic 86214-0) acids are not detected in thi s [...] revoked sooner. Fact Sheet for Healthcare Providers: https://www.youcalc/Documents/Xp ert%20Xpress%20SAR S%20CoV-2/Fact%20S heets/302-3802%20S ARS-COV-2%20HEALTH CARE%20PROVIDERS%2 0FACT%20SHEET.pdf Fact Sheet for Healthcare Patients: https://www.youcalc/Documents/Xp ert%20Xpress%20SAR S%20CoV-2/Fact%20S heets/302-3801%20S ARS-COV-2%20PATIEN T%20FACT%20SHEET.p df Lab Interpretation Normal (test code = 92905-1) [facility]2022-03-06 19:17:07 Test Item Value Reference Interpretation Comments Range SARS-COV2/RT-PCR Negative Negative The SARS-Co V-2 (test code = target nucleic 47819-5) acids are not detected in thi s [...] revoked sooner. Fact Sheet for Healthcare Providers: https://www.youcalc/Documents/Xp ert%20Xpress%20SAR S%20CoV-2/Fact%20S heets/3023802%20S ARS-COV-2%20HEALTH CARE%20PROVIDERS%2 0FACT%20SHEET.pdf Fact Sheet for Healthcare Patients: https://www.youcalc/Documents/Xp ert%20Xpress%20SAR S%20CoV-2/Fact%20S heets/302-3801%20S ARS-COV-2%20PATIEN T%20FACT%20SHEET.p df Lab Interpretation Normal (test code = 49282-2) [facility]2022-03-06 19:17:07 Test Item Value Reference Interpretation Comments Range SARS-COV2/RT-PCR Negative Negative The SARS-Co V-2 (test code = target nucleic 71284-7) acids are not detected in thi s [...] revoked sooner. Fact Sheet for Healthcare Providers: https://www.youcalc/Documents/Xp ert%20Xpress%20SAR S%20CoV-2/Fact%20S heets/302-3802%20S ARS-COV-2%20HEALTH CARE%20PROVIDERS%2 0FACT%20SHEET.pdf Fact Sheet for Healthcare Patients: https://www.youcalc/Documents/Xp ert%20Xpress%20SAR S%20CoV-2/Fact%20S heets/302-3801%20S ARS-COV-2%20PATIEN T%20FACT%20SHEET.p df Lab Interpretation Normal (test code = 53553-9) [facility]2022-03-06 19:17:07 Test Item Value Reference Interpretation Comments Range SARS-COV2/RT-PCR Negative Negative The SARS-Co V-2 (test code = target nucleic 66007-0) acids are not detected in thi s [...] revoked sooner. Fact Sheet for Healthcare Providers: https://www.youcalc/Documents/Xp ert%20Xpress%20SAR S%20CoV-2/Fact%20S heets/302-3802%20S ARS-COV-2%20HEALTH CARE%20PROVIDERS%2 0FACT%20SHEET.pdf Fact Sheet for Healthcare Patients: https://www.youcalc/Documents/Xp ert%20Xpress%20SAR S%20CoV-2/Fact%20S heets/302-3801%20S ARS-COV-2%20PATIEN T%20FACT%20SHEET.p df Lab Interpretation Normal (test code = 06305-1) [facility]2022-03-06 19:17:07 Test Item Value Reference Interpretation Comments Range SARS-COV2/RT-PCR Negative Negative The SARS-Co V-2 (test code = target nucleic 79637-7) acids are not detected in thi s [...] revoked sooner. Fact Sheet for Healthcare Providers: https://www.youcalc/Documents/Xp ert%20Xpress%20SAR S%20CoV-2/Fact%20S heets/302-5262%20S ARS-COV-2%20HEALTH CARE%20PROVIDERS%2 0FACT%20SHEET.pdf Fact Sheet for Healthcare Patients: https://www.youcalc/Documents/Xp ert%20Xpress%20SAR S%20CoV-2/Fact%20S heets/302-2231%20S ARS-COV-2%20PATIEN T%20FACT%20SHEET.p df Lab Interpretation Normal (test code = 97625-9) [facility]2022-03-06 19:17:07 Test Item Value Reference Interpretation Comments Range SARS-COV2/RT-PCR Negative Negative The SARS-Co V-2 (test code = target nucleic 26342-4) acids are not detected in thi s [...] revoked sooner. Fact Sheet for Healthcare Providers: https://www.youcalc/Documents/Xp ert%20Xpress%20SAR S%20CoV-2/Fact%20S heets/302-3802%20S ARS-COV-2%20HEALTH CARE%20PROVIDERS%2 0FACT%20SHEET.pdf Fact Sheet for Healthcare Patients: https://www.youcalc/Documents/Xp ert%20Xpress%20SAR S%20CoV-2/Fact%20S heets/302-3801%20S ARS-COV-2%20PATIEN T%20FACT%20SHEET.p df Lab Interpretation Normal (test code = 55465-5) [facility])2022-03-06 19:17:07 Test Item Value Reference Range Interpretation Comments SARS-COV2/RT-PCR Negative Negative The SARS-Co V-2 target (test code = nucleic acids a re not 8972341) detected in thi s specimen. Negative result [...] revoked sooner. Fact Sheet for Healthcare Providers: https://www.Databricks m/Documents/Xpert%20Xpress%20SARS%20CoV-2/Fact%20Sheets/3023802%26VVSK-ICL-3%20 HEALTHCARE%20PROVIDERS%20FACT%20SHEET.pdf Fact Sheet for Healthcare Patients: https://www.RisparmioSuper/Documents/Xpert%20Xp ress%20SARS%20CoV-2/Fact%20Sheets/3023801%84WEGI-JLP-2%20PATIENT%20FACT%20SHEET .pdfCREATINE KINASE (CK)2022-03-06 16:19:14 Test Item Value Reference Range Interpretation Comments CREATINE KINASE TOTAL (BEAKER) (test 141 U/L 29-200 code = 380) Risk Reduction Counselor ID - BST4, [id number] 15:13:16 Test Item Value Reference Range Interpretation Comments FREE T4 (BEAKER) (test code = 655) 0.95 ng/dL 0.70-1.48 Risk Reduction Counselor ID - BSTSH/FREE T4 IF [id number] 15:13:16 Test Item Value Reference Range Interpretation Comments THYROID STIMULATING HORMONE 2.060 uIU/mL 0.350-4.940 (GILMAR) (test code = 772) Risk Reduction Counselor ID - BSB-TYPE NATRIURETIC FACTOR (BNP)2022-03-06 14:26:30 Test Item Value Reference Range Interpretation Comments B-TYPE NATRIURETIC PEPTIDE (GILMAR) < pg/mL 0-100 (test code = 700) Risk Reduction Counselor ID - JSHIGH SENSITIVITY TROPONIN [id number] 14:14:54 Test Item Value Reference Range Interpretation Comments HIGH SENSITIVITY < pg/ml See_Comment [Automated message] TROPONIN I (test code = The system which [id number]) generated this result transmitted ref erence range: <=35. Th e reference range was not used to interpr et this result as normal/abnormal . Risk Reduction Counselor ID - JSThe RUBBER MIXER STAT High Sensitivity Troponin-I results should be used in conjunctionwith other diagnostic information such as ECG, clinical observations and information, and patient symptoms to aid in the diagnosis of AK.RAD, CHEST, 1 VIEW, NON [id number] 14:10:00Reason for exam:- >NEUROLOGIC PROBLEMShould this be performed at the bedside?->Yes [facility] 1970 Sex: MFINAL [...] [place] Verified Date/Time: 03/06/2022 14:10:44 REHENSIVE METABOLIC [id number] 14:08:22 Test Item Value Reference Range Interpretation [...] S NOT APPLICABLE FOR DIALYSIS PATIEN TS. Risk Reduction Counselor ID - [id number] 14:07:49 Test Item Value Reference Range Interpretation Comments MAGNESIUM (BEAKER) (test code = 2.0 mg/dL 1.6-2.6 627) Risk Reduction Counselor ID - [id number] 14:07:49 Test Item Value Reference Range Interpretation Comments PHOSPHORUS (BEAKER) (test code = 5.6 mg/dL 2.3-4.7 H 604) Risk Reduction Counselor ID - JSLACTIC ACID, [id number] 13:51:04 Test Item Value Reference Range Interpretation Comments LACTATE BLOOD VENOUS 1.32 mmol/L 0.50-2.20 Specime n slightly (2) (BEAKER) (test hemolyzed code = 2872) Risk Reduction Counselor ID - JSCBC W/PLT COUNT & AUTO [id number] 13:47:24 Test Item Value Reference Range Interpretation [...] (BEAKER) (test code = 2801) Coronavirus, CoVID-19, [id number] 01:07:20 Test Item Value Reference Range Interpretation Comments COVID-19 (SARS-COV-2) Not Detected Not Detected INTERP RETATION: No (test code = 56177-8) detect able levels of SARS-CoV-2 Coronavirus (COVID-19) [...] SARS-CoV-2 mole cular diagnostic assa y utilizes Telecom Field Technician Mediated Amplification ( TMA) technology to r apidly detect the SARS -CoV-2 (COVID-19) viru s from respiratory adriana ples. In accordance w ith the FDA's kamran nce document "Polic y for Diagnostic Test s for Coronavirus Disease-2019 du [facility]", thi s test was developed, and its performance characteristics were verified by the [facility] molecular diagn ostics laboratory and is authorized for clinical diagno stic use. This labor atory is certified un [place] the Clinical Laboratory Improvement Amendments (CLI A) as qualified to pe rform high complexity clinical labora tory testing. Lab Interpretation Normal (test code = 91747-4) Maged Aaronavirus, CoVID-19, [id number] 01:07:20 Test Item Value Reference Range Interpretation Comments COVID-19 (SARS-COV-2) Not Detected Not Detected INTERP RETATION: No (test code = 16075-2) detect able levels of SARS-CoV-2 Coronavirus (COVID-19) [...] SARS-CoV-2 mole cular diagnostic assa y utilizes Telecom Field Technician Mediated Amplification ( TMA) technology to r apidly detect the SARS -CoV-2 (COVID-19) viru s from respiratory adriana ples. In accordance w ith the FDA's kamran nce document "Polic y for Diagnostic Test s for Coronavirus Disease-2019 du ring the [facility] Emergency", thi s test was developed, and its performance characteristics were verified by the [facility] molecular diagn ostics laboratory and is authorized for clinical diagno stic use. This labor atory is certified un [place] the Clinical Laboratory Improvement Amendments (CLI A) as qualified to pe rform high complexity clinical labora tory testing. Lab Interpretation Normal (test code = 62117-3) Maged Aaronavirus, CoVID-19, [id number] 01:07:20 Test Item Value Reference Range Interpretation Comments COVID-19 (SARS-COV-2) Not Detected Not Detected INTERP RETATION: No (test code = 39888-3) detect able levels of SARS-CoV-2 Coronavirus (COVID-19) [...] SARS-CoV-2 mole cular diagnostic assa y utilizes Telecom Field Technician Mediated Amplification ( TMA) technology to r apidly detect the SARS -CoV-2 (COVID-19) viru s from respiratory adriana ples. In accordance w ith the FDA's kamran nce document "Polic y for Diagnostic Test s for Coronavirus Disease-2018 du [facility] the Public [facility] Emergency", thi s test was developed, and its performance characteristics were verified by the [facility] molecular diagn ostics laboratory and is authorized for clinical diagno stic use. This labor atory is certified un [place] the Clinical Laboratory Improvement Amendments (CLI A) as qualified to pe rform high complexity clinical labora tory testing. Lab Interpretation Normal (test code = 29998-3) [facility] [id number] 01:07:20 Test Item Value Reference Range Interpretation Comments COVID-19 (SARS-COV-2) Not Detected Not Detected INTERP RETATION: No (test code = 56118-2) detect able levels of SARS-CoV-2 Coronavirus (COVID-19) [...] SARS-CoV-2 mole cular diagnostic assa y utilizes Telecom Field Technician Mediated Amplification ( TMA) technology to r apidly detect the SARS -CoV-2 (COVID-19) viru s from respiratory adriana ples. In accordance w ith the FDA's kamran nce document "Polic y for Diagnostic Test s for Coronavirus Disease-2019 du ring the Public [facility]", thi s test was developed, and its performance characteristics were verified by the [facility] molecular diagn ostics laboratory and is authorized for clinical diagno stic use. This labor atory is certified un [place] the Clinical Laboratory Improvement Amendments (CLI A) as qualified to pe rform high complexity clinical labora tory testing. Lab Interpretation Normal (test code = 40583-6) [facility], [id number] 01:07:20 Test Item Value Reference Range Interpretation Comments COVID-19 (SARS-COV-2) Not Detected Not Detected INTERP RETATION: No (test code = 05534-1) detect able levels of SARS-CoV-2 Coronavirus (COVID-19) [...] SARS-CoV-2 mole cular diagnostic assa y utilizes Telecom Field Technician Mediated Amplification ( TMA) technology to r apidly detect the SARS -CoV-2 (COVID-19) viru s from respiratory adriana ples. In accordance w ith the FDA's kamran nce document "Polic y for Diagnostic Test s for Coronavirus Disease-2019 du ring the Public [facility]", thi s test was developed, and its performance characteristics were verified by the [facility] molecular diagn ostics laboratory and is authorized for clinical diagno stic use. This labor atory is certified un [place] the Clinical Laboratory Improvement Amendments (CLI A) as qualified to pe rform high complexity clinical labora tory testing. Lab Interpretation Normal (test code = 50375-3) [facility], CoVID-19, [id number] 01:07:20 Test Item Value Reference Range Interpretation Comments COVID-19 (SARS-COV-2) Not Detected Not Detected INTERP RETATION: No (test code = 16005-6) detect able levels of SARS-CoV-2 Coronavirus (COVID-19) [...] SARS-CoV-2 mole cular diagnostic assa y utilizes Telecom Field Technician Mediated Amplification ( TMA) technology to r apidly detect the SARS -CoV-2 (COVID-19) viru s from respiratory adriana ples. In accordance w ith the FDA's kamran nce document "Polic y for Diagnostic Test s for Coronavirus Disease-2019 du [facility] the [facility]", thi s test was developed, and its performance characteristics were verified by the [facility] molecular diagn ostics laboratory and is authorized for clinical diagno stic use. This labor atory is certified un [place] the Clinical Laboratory Improvement Amendments (CLI A) as qualified to pe rform high complexity clinical labora tory testing. Lab Interpretation Normal (test code = 57159-8) [facility], CoVID-19, [id number] 01:07:20 Test Item Value Reference Range Interpretation Comments COVID-19 (SARS-COV-2) Not Detected Not Detected INTERP RETATION: No (test code = 55265-8) detect able levels of SARS-CoV-2 Coronavirus (COVID-19) [...] SARS-CoV-2 mole cular diagnostic assa y utilizes Telecom Field Technician Mediated Amplification ( TMA) technology to r apidly detect the SARS -CoV-2 (COVID-19) viru s from respiratory adriana ples. In accordance w ith the FDA's kamran nce document "Polic y for Diagnostic Test s for Coronavirus Disease-2019 du [facility] the [facility] Emergency", thi s test was developed, and its performance characteristics were verified by the [facility] molecular diagn ostics laboratory and is authorized for clinical diagno stic use. This labor atory is certified un [place] the Clinical Laboratory Improvement Amendments (CLI A) as qualified to pe rform high complexity clinical labora tory testing. Lab Interpretation Normal (test code = 38779-8) [facility], [id number] 01:07:20 Test Item Value Reference Range Interpretation Comments COVID-19 (SARS-COV-2) Not Detected Not Detected INTERP RETATION: No (test code = 36309-6) detect able levels of SARS-CoV-2 Coronavirus (COVID-19) [...] SARS-CoV-2 mole cular diagnostic assa y utilizes Telecom Field Technician Mediated Amplification ( TMA) technology to r apidly detect the SARS -CoV-2 (COVID-19) viru s from respiratory adriana ples. In accordance w ith the FDA's kamran nce document "Polic y for Diagnostic Test s for Coronavirus Disease-2019 du [facility] the [facility]", thi s test was developed, and its performance characteristics were verified by the [facility] molecular diagn ostics laboratory and is authorized for clinical diagno stic use. This labor atory is certified un [place] the Clinical Laboratory Improvement Amendments (CLI A) as qualified to pe rform high complexity clinical labora tory testing. Lab Interpretation Normal (test code = 62722-8) [facility], [id number] 01:07:20 Test Item Value Reference Range Interpretation Comments COVID-19 (SARS-COV-2) Not Detected Not Detected INTERP RETATION: No (test code = 70893-0) detect able levels of SARS-CoV-2 Coronavirus (COVID-19) [...] SARS-CoV-2 mole cular diagnostic assa y utilizes Telecom Field Technician Mediated Amplification ( TMA) technology to r apidly detect the SARS -CoV-2 (COVID-19) viru s from respiratory adriana ples. In accordance w ith the FDA's kamran nce document "Polic y for Diagnostic Test s for Coronavirus Disease-2019 du ring the Public [facility] th Emergency", thi s test was developed, and its performance characteristics were verified by the [facility] molecular diagn ostics laboratory and is authorized for clinical diagno stic use. This labor atory is certified un [place] the Clinical Laboratory Improvement Amendments (CLI A) as qualified to pe rform high complexity clinical labora tory testing. Lab Interpretation Normal (test code = 13316-7) [facility], CoVID-19, [id number] 01:07:20 Test Item Value Reference Range Interpretation Comments COVID-19 (SARS-COV-2) Not Detected Not Detected INTERP RETATION: No (test code = 55150-5) detect able levels of SARS-CoV-2 Coronavirus (COVID-19) [...] SARS-CoV-2 mole cular diagnostic assa y utilizes Telecom Field Technician Mediated Amplification ( TMA) technology to r apidly detect the SARS -CoV-2 (COVID-19) viru s from respiratory adriana ples. In accordance w ith the FDA's kamran nce document "Polic y for Diagnostic Test s for Coronavirus Disease-2019 du ring the [facility]", thi s test was developed, and its performance characteristics were verified by the [facility] molecular diagn ostics laboratory and is authorized for clinical diagno stic use. This labor atory is certified un [place] the Clinical Laboratory Improvement Amendments (CLI A) as qualified to pe rform high complexity clinical labora tory testing. Lab Interpretation Normal (test code = 32664-2) [facility], [id number] 01:07:20 Test Item Value Reference Range Interpretation Comments COVID-19 (SARS-COV-2) Not Detected Not Detected INTERP RETATION: No (test code = 79682-2) detect able levels of SARS-CoV-2 Coronavirus (COVID-19) [...] SARS-CoV-2 mole cular diagnostic assa y utilizes Telecom Field Technician Mediated Amplification ( TMA) technology to r apidly detect the SARS -CoV-2 (COVID-19) viru s from respiratory adriana ples. In accordance w ith the FDA's kamran nce document "Polic y for Diagnostic Test s for Coronavirus Disease-2019 du [facility] the [facility]", thi s test was developed, and its performance characteristics were verified by the [facility] molecular diagn ostics laboratory and is authorized for clinical diagno stic use. This labor atory is certified un [place] the Clinical Laboratory Improvement Amendments (CLI A) as qualified to pe rform high complexity clinical labora tory testing. Lab Interpretation Normal (test code = 95169-9) [facility], [id number] 01:07:20 Test Item Value Reference Range Interpretation Comments COVID-19 (SARS-COV-2) Not Detected Not Detected INTERP RETATION: No (test code = 89335-1) detect able levels of SARS-CoV-2 Coronavirus (COVID-19) [...] SARS-CoV-2 mole cular diagnostic assa y utilizes Telecom Field Technician Mediated Amplification ( TMA) technology to r apidly detect the SARS -CoV-2 (COVID-19) viru s from respiratory adriana ples. In accordance w ith the FDA's kamran nce document "Polic y for Diagnostic Test s for Coronavirus Disease-2019 du ring the [facility]", thi s test was developed, and its performance characteristics were verified by the [facility] molecular diagn ostics laboratory and is authorized for clinical diagno stic use. This labor atory is certified un [place] the Clinical Laboratory Improvement Amendments (CLI A) as qualified to pe rform high complexity clinical labora tory testing. Lab Interpretation Normal (test code = 04041-5) [facility]-19, [id number] 01:07:20 Test Item Value Reference Range Interpretation Comments COVID-19 (SARS-COV-2) Not Detected Not Detected INTERP RETATION: No (test code = 43168-3) detect able levels of SARS-CoV-2 Coronavirus (COVID-19) [...] SARS-CoV-2 mole cular diagnostic assa y utilizes Telecom Field Technician Mediated Amplification ( TMA) technology to r apidly detect the SARS -CoV-2 (COVID-19) viru s from respiratory adriana ples. In accordance w ith the FDA's kamran nce document "Polic y for Diagnostic Test s for Coronavirus Disease-2019 du ring the [facility] th Emergency", thi s test was developed, and its performance characteristics were verified by the [facility] molecular diagn ostics laboratory and is authorized for clinical diagno stic use. This labor atory is certified un est[place] the Clinical Laboratory Improvement Amendments (CLI A) as qualified to pe rform high complexity clinical labora tory testing. Lab Interpretation Normal (test code = 38852-0) [facility], [id number] 01:07:20 Test Item Value Reference Range Interpretation Comments COVID-19 (SARS-COV-2) Not Detected Not Detected INTERP RETATION: No (test code = 42250-4) detect able levels of SARS-CoV-2 Coronavirus (COVID-19) [...] SARS-CoV-2 mole cular diagnostic assa y utilizes Telecom Field Technician Mediated Amplification ( TMA) technology to r apidly detect the SARS -CoV-2 (COVID-19) viru s from respiratory adriana ples. In accordance w ith the FDA's kamran nce document "Polic y for Diagnostic Test s for Coronavirus Disease-2019 du ring the [facility] th Emergency", thi s test was developed, and its performance characteristics were verified by the [facility] molecular diagn ostics laboratory and is authorized for clinical diagno stic use. This labor atory is certified un [place] the Clinical Laboratory Improvement Amendments (CLI A) as qualified to pe rform high complexity clinical labora tory testing. Lab Interpretation Normal (test code = 46330-5) [facility], [id number] 01:07:20 Test Item Value Reference Range Interpretation Comments COVID-19 (SARS-COV-2) Not Detected Not Detected INTERP RETATION: No (test code = 71691-3) detect able levels of SARS-CoV-2 Coronavirus (COVID-19) [...] SARS-CoV-2 mole cular diagnostic assa y utilizes Telecom Field Technician Mediated Amplification ( TMA) technology to r apidly detect the SARS -CoV-2 (COVID-19) viru s from respiratory adriana ples. In accordance w ith the FDA's kamran nce document "Polic y for Diagnostic Test s for Coronavirus Disease-2019 du [facility] the [facility] Emergency", thi s test was developed, and its performance characteristics were verified by the [facility] molecular diagn ostics laboratory and is authorized for clinical diagno stic use. This labor atory is certified un [place] the Clinical Laboratory Improvement Amendments (CLI A) as qualified to pe rform high complexity clinical labora tory testing. Lab Interpretation Normal (test code = 08027-2) [place] [facility], CoVID-19, [id number] 01:07:20 Test Item Value Reference Range Interpretation Comments COVID-19 (SARS-COV-2) Not Detected Not Detected INTERP RETATION: No (test code = 10974-8) detect able levels of SARS-CoV-2 Coronavirus (COVID-19) [...] SARS-CoV-2 mole cular diagnostic assa y utilizes Telecom Field Technician Mediated Amplification ( TMA) technology to r apidly detect the SARS -CoV-2 (COVID-19) viru s from respiratory adriana ples. In accordance w ith the FDA's kamran nce document "Polic y for Diagnostic Test s for Coronavirus Disease-2019 du [facility] the [facility] Emergency", thi s test was developed, and its performance characteristics were verified by the [facility] molecular diagn ostics laboratory and is authorized for clinical diagno stic use. This labor atory is certified un [place] the Clinical Laboratory Improvement Amendments (CLI A) as qualified to pe rform high complexity clinical labora tory testing. Lab Interpretation Normal (test code = 18610-6) [facility], [facility] [id number] 01:07:20 Test Item Value Reference Range Interpretation Comments COVID-19 (SARS-COV-2) Not Detected Not Detected INTERP RETATION: No (test code = 10371-5) detect able levels of SARS-CoV-2 Coronavirus (COVID-19) [...] SARS-CoV-2 mole cular diagnostic assa y utilizes Telecom Field Technician Mediated Amplification ( TMA) technology to r apidly detect the SARS -CoV-2 (COVID-19) viru s from respiratory adriana ples. In accordance w ith the FDA's kamran nce document "Polic y for Diagnostic Test s for Coronavirus Disease-2019 du [facility] the [facility] Emergency", thi s test was developed, and its performance characteristics were verified by the [facility] molecular diagn ostics laboratory and is authorized for clinical diagno stic use. This labor atory is certified un [place] the Clinical Laboratory Improvement Amendments (CLI A) as qualified to pe rform high complexity clinical labora tory testing. Lab Interpretation Normal (test code = 13130-4) [facility]-19, [id number] 01:07:20 Test Item Value Reference Range Interpretation Comments COVID-19 (SARS-COV-2) Not Detected Not Detected INTERP RETATION: No (test code = 48818-2) detect able levels of SARS-CoV-2 Coronavirus (COVID-19) [...] SARS-CoV-2 mole cular diagnostic assa y utilizes Telecom Field Technician Mediated Amplification ( TMA) technology to r apidly detect the SARS -CoV-2 (COVID-19) viru s from respiratory adriana ples. In accordance w ith the FDA's kamran nce document "Polic y for Diagnostic Test s for Coronavirus Disease-2019 du [facility] the [facility] th Emergency", thi s test was developed, and its performance characteristics were verified by the [facility] molecular diagn ostics laboratory and is authorized for clinical diagno stic use. This labor atory is certified un [place] the Clinical Laboratory Improvement Amendments (CLI A) as qualified to pe rform high complexity clinical labora tory testing. Lab Interpretation Normal (test code = 04925-9) [facility] Ruelasronavirus, CoVID-19, [id number] 01:07:20 Test Item Value Reference Range Interpretation Comments COVID-19 (SARS-COV-2) Not Detected Not Detected INTERP RETATION: No (test code = 36128-3) detect able levels of SARS-CoV-2 Coronavirus (COVID-19) [...] SARS-CoV-2 mole cular diagnostic assa y utilizes Telecom Field Technician Mediated Amplification ( TMA) technology to r apidly detect the SARS -CoV-2 (COVID-19) viru s from respiratory adriana ples. In accordance w ith the FDA's kamran nce document "Polic y for Diagnostic Test s for Coronavirus Disease-2019 du [facility] the [facility] Emergency", thi s test was developed, and its performance characteristics were verified by the [facility] molecular diagn ostics laboratory and is authorized for clinical diagno stic use. This labor atory is certified un [place] the Clinical Laboratory Improvement Amendments (CLI A) as qualified to pe rform high complexity clinical labora tory testing. Lab Interpretation Normal (test code = 65952-7) [facility] Ruelasronavirus, CoVID-19, [id number] 01:07:20 Test Item Value Reference Range Interpretation Comments COVID-19 (SARS-COV-2) Not Detected Not Detected INTERP RETATION: No (test code = 67232-0) detect able levels of SARS-CoV-2 Coronavirus (COVID-19) [...] SARS-CoV-2 mole cular diagnostic assa y utilizes Telecom Field Technician Mediated Amplification ( TMA) technology to r apidly detect the SARS -CoV-2 (COVID-19) viru s from respiratory adriana ples. In accordance w ith the FDA's kamran nce document "Polic y for Diagnostic Test s for Coronavirus Disease-2019 du [place] the [facility] Emergency", thi s test was developed, and its performance characteristics were verified by the [facility] molecular diagn ostics laboratory and is authorized for clinical diagno stic use. This labor atory is certified [place] the Clinical Laboratory Improvement Amendments (CLI A) as qualified to pe rform high complexity clinical labora tory testing. Lab Interpretation Normal (test code = 30410-5) [facility], [id number] 01:07:20 Test Item Value Reference Range Interpretation Comments COVID-19 (SARS-COV-2) Not Detected Not Detected INTERP RETATION: No (test code = 39103-1) detect able levels of SARS-CoV-2 Coronavirus (COVID-19) [...] SARS-CoV-2 mole cular diagnostic assa y utilizes Telecom Field Technician Mediated Amplification ( TMA) technology to r apidly detect the SARS -CoV-2 (COVID-19) viru s from respiratory adriana ples. In accordance w ith the FDA's kamran nce document "Polic y for Diagnostic Test s for Coronavirus Disease-2019 du [facility]", thi s test was developed, and its performance characteristics were verified by the [facility] molecular diagn ostics laboratory and is authorized for clinical diagno stic use. This labor atory is certified un [place] the Clinical Laboratory Improvement Amendments (CLI A) as qualified to pe rform high complexity clinical labora tory testing. Lab Interpretation Normal (test code = 13835-3) [facility], [facility], [id number] 01:07:20 Test Item Value Reference Range Interpretation Comments COVID-19 (SARS-COV-2) Not Detected Not Detected INTERP RETATION: No (test code = 76092-2) detect able levels of SARS-CoV-2 Coronavirus (COVID-19) [...] SARS-CoV-2 mole cular diagnostic assa y utilizes Telecom Field Technician Mediated Amplification ( TMA) technology to r apidly detect the SARS -CoV-2 (COVID-19) viru s from respiratory adriana ples. In accordance w ith the FDA's kamran nce document "Polic y for Diagnostic Test s for Coronavirus Disease-2019 du [place] [facility]", thi s test was developed, and its performance characteristics were verified by the [facility] molecular diagn ostics laboratory and is authorized for clinical diagno stic use. This labor atory is certified [place] the Clinical Laboratory Improvement Amendments (CLI A) as qualified to pe rform high complexity clinical labora tory testing. Lab Interpretation Normal (test code = 83893-0) [facility]-19, [id number] 01:07:20 Test Item Value Reference Range Interpretation Comments COVID-19 (SARS-COV-2) Not Detected Not Detected INTERP RETATION: No (test code = 06196-6) detect able levels of SARS-CoV-2 Coronavirus (COVID-19) [...] SARS-CoV-2 mole cular diagnostic assa y utilizes Telecom Field Technician Mediated Amplification ( TMA) technology to r apidly detect the SARS -CoV-2 (COVID-19) viru s from respiratory adriana ples. In accordance w ith the FDA's kamran nce document "Polic y for Diagnostic Test s for Coronavirus Disease-2019 du [place] the [facility]", thi s test was developed, and its performance characteristics were verified by the [facility] molecular diagn ostics laboratory and is authorized for clinical diagno stic use. This labor atory is certified un [place] the Clinical Laboratory Improvement Amendments (CLI A) as qualified to pe rform high complexity clinical labora tory testing. Lab Interpretation Normal (test code = 74377-8) [facility] HospitalJcufemPPNH-JyE-0 ORF1ab Resp Ql OLENA+[id number] 01:07:20 Test Item Value Reference Range Interpretation Comments Hospitalized? (test No code = 96813-9) ICU? (test code = No 00359-0) Symptomatic as No defined by CDC? (test code = 92490-8) Employed in No Healthcare? (test code = 25275-6) Resident in a No congregate care setting (including nursing homes, residential care for people with intellectual and developmental disabilities, psychiatric treatment facilities, group homes, board and care homes, homeless penitentiary, foster care or other): (test code = 95529-4) SARS-CoV-2 ORF1ab NOT DETECTED Not Detected INTERPRETA TION: No Resp Ql OLENA+probe detectable levels of (test code = SARS-CoV-2 44520-9) Coronavirus (COVID-19) were present in this patient's [...] SARS-CoV-2 mole cular diagnostic assa y utilizes Telecom Field Technician Mediated Amplification ( TMA) technology to r apidly detect the SARS -CoV-2 (COVID-19) viru s from respiratory adriana ples. In accordance with\\XC2A0\\the FDA's guidance docume nt "Policy for Diagnostic Test s for Coronavirus Disease-2019 du [place] the [facility]", ginger s test was developed, and its performance characteristics were verified by the [facility] molecular diagn ostics laboratory and is authorized for clinical diagno stic use. \\XC2A0\\Thi s laboratory is certified under the Clinical Labora tory Improvement Amendments (CLI A) as qualified to pe rform high complexity clinical labora tory testing. [facility] GLUCOSE POC docked [id number] 08:09:01 Test Item Value Reference Range Interpretation Comments Glucose POC (test code = 01549436) 85 mg/dL 74-106 Lab Interpretation (test code = Normal 20457-0) [facility] GLUCOSE POC docked [id number] 08:09:01 Test Item Value Reference Range Interpretation Comments Glucose POC (test code = 88951677) 85 mg/dL 74-106 Lab Interpretation (test code = Normal 92438-1) [facility] [id number] 08:09:01 Test Item Value Reference Range Interpretation Comments Glucose POC (test code = 14866352) 85 mg/dL 74-106 Lab Interpretation (test code = Normal 57979-9) [facility] [id number] 08:09:01 Test Item Value Reference Range Interpretation Comments Glucose POC (test code = 88299609) 85 mg/dL 74-106 Lab Interpretation (test code = Normal 04586-2) [facility] [id number] 08:09:01 Test Item Value Reference Range Interpretation Comments Glucose POC (test code = 72328392) 85 mg/dL 74-106 Lab Interpretation (test code = Normal 17551-0) [facility] [id number] 08:09:01 Test Item Value Reference Range Interpretation Comments Glucose POC (test code = 09535936) 85 mg/dL 74-106 Lab Interpretation (test code = Normal 88957-2) [facility] docked [id number] 08:09:01 Test Item Value Reference Range Interpretation Comments Glucose POC (test code = 70007856) 85 mg/dL 74-106 Lab Interpretation (test code = Normal 12471-2) [facility] docked [id number] 08:09:01 Test Item Value Reference Range Interpretation Comments Glucose POC (test code = 64920732) 85 mg/dL 74-106 Lab Interpretation (test code = Normal 00748-5) [facility] [id number] 08:09:01 Test Item Value Reference Range Interpretation Comments Glucose POC (test code = 03715589) 85 mg/dL 74-106 Lab Interpretation (test code = Normal 46895-5) [facility] [id number] 08:09:01 Test Item Value Reference Range Interpretation Comments Glucose POC (test code = 06734425) 85 mg/dL 74-106 Lab Interpretation (test code = Normal 92685-4) [facility] [id number] 08:09:01 Test Item Value Reference Range Interpretation Comments Glucose POC (test code = 14757249) 85 mg/dL 74-106 Lab Interpretation (test code = Normal 50931-2) [facility] [id number] 08:09:01 Test Item Value Reference Range Interpretation Comments Glucose POC (test code = 73991258) 85 mg/dL 74-106 Lab Interpretation (test code = Normal 23811-0) [facility]ed [id number] 08:09:01 Test Item Value Reference Range Interpretation Comments Glucose POC (test code = 12970000) 85 mg/dL 74-106 Lab Interpretation (test code = Normal 74657-7) [facility]ed [id number] 08:09:01 Test Item Value Reference Range Interpretation Comments Glucose POC (test code = 11735028) 85 mg/dL 74-106 Lab Interpretation (test code = Normal 86528-3) [facility] [id number] 08:09:01 Test Item Value Reference Range Interpretation Comments Glucose POC (test code = 48606386) 85 mg/dL 74-106 Lab Interpretation (test code = Normal 31164-7) [facility] docked [id number] 08:09:01 Test Item Value Reference Range Interpretation Comments Glucose POC (test code = 42519021) 85 mg/dL 74-106 Lab Interpretation (test code = Normal 08438-2) [facility] docked [id number] 08:09:01 Test Item Value Reference Range Interpretation Comments Glucose POC (test code = 87340749) 85 mg/dL 74-106 Lab Interpretation (test code = Normal 04674-4) [facility]ed [id number] 08:09:01 Test Item Value Reference Range Interpretation Comments Glucose POC (test code = 12771131) 85 mg/dL 74-106 Lab Interpretation (test code = Normal 97566-3) [facility]ed [id number] 08:09:01 Test Item Value Reference Range Interpretation Comments Glucose POC (test code = 15912061) 85 mg/dL 74-106 Lab Interpretation (test code = Normal 12259-6) [facility]ed [id number] 08:09:01 Test Item Value Reference Range Interpretation Comments Glucose POC (test code = 28492971) 85 mg/dL 74-106 Lab Interpretation (test code = Normal 86079-5) [facility] GLUCOSE POC docked [id number] 08:09:01 Test Item Value Reference Range Interpretation Comments Glucose POC (test code = 06401513) 85 mg/dL 74-106 Lab Interpretation (test code = Normal 06101-6) [facility] docked [id number] 08:09:01 Test Item Value Reference Range Interpretation Comments Glucose POC (test code = 99378454) 85 mg/dL 74-106 Lab Interpretation (test code = Normal 74444-6) [facility] [id number] 08:09:01 Test Item Value Reference Range Interpretation Comments Glucose POC (test code = 83233265) 85 mg/dL 74-106 Lab Interpretation (test code = Normal 89772-2) [facility] ORF1ab Resp Ql OLENA+[id number] 23:25:40 Test Item Value Reference Range Interpretation Comments Hospitalized? (test No code = 53718-2) ICU? (test code = No 45885-8) Symptomatic as No defined by CDC? (test code = 39307-4) Employed in No Healthcare? (test code = 37858-5) Resident in a No congregate care setting (including nursing homes, residential care for people with intellectual and developmental disabilities, psychiatric treatment facilities, group homes, board and care homes, homeless penitentiary, foster care or other): (test code = 93093-7) SARS-CoV-2 ORF1ab NOT DETECTED Not Detected INTERPRETA TION: No Resp Ql OLENA+probe detectable levels of (test code = SARS-CoV-2 10821-1) Coronavirus (COVID-19) were present in this patient's [...] SARS-CoV-2 mole cular diagnostic assa y utilizes Telecom Field Technician Mediated Amplification ( TMA) technology to r apidly detect the SARS -CoV-2 (COVID-19) viru s from respiratory adriana ples. In accordance with\\XC2A0\\the FDA's guidance docume nt "Policy for Diagnostic Test s for Coronavirus Disease-2019 du [facility] the [facility] th Emergency", ginger s test was developed, and its performance characteristics were verified by the [facility] molecular diagn ostics laboratory and is authorized for clinical diagno stic use. \\XC2A0\\Thi s laboratory is certified under the Clinical Labora tory Improvement Amendments (CLI A) as qualified to pe rform high complexity clinical labora tory testing. 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: 1970 Requested By: DARRION Cho Number: [id number] Reading MD: Rene Patterson MeasurementsIntervals [place] Rate: 61 P: 72PR: 152 QRS: 55QRSD: 106 T: 63QT: 398 QTc: 400 Interpretive StatementsSINUS RHYTHMPOSSIBLE RIGHT VENTRICULAR CONDUCTION DELAY [RSR (QR) IN V1/V2]Electronically Signed On 01-22-2022 8:30:45 CDT by Rene [place] [address] Lead [id number] 15:46:1012 LEAD EKG FOR [facility] Test Date: 6400-17-48Jun Name: DROA PAEZRY Department: 5ECIPatient ID: [id number] 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: [id number]: 1970 Requested By: DARRION Cho Number: [id number] Reading MD: Rene Patterson MeasurementsIntervals [place] Rate: 61 P: 72PR: 152 QRS: 55QRSD: 106 T: 63QT: 398 QTc: 400 Interpretive StatementsSINUS RHYTHMPOSSIBLE RIGHT VENTRICULAR CONDUCTION DELAY [RSR (QR) IN V1/V2]Electronically Signed On 01-22-2022 8:30:45 CDT by Rene SadiAppiesCom[facility]12 Lead [id number] 15:46:1012 LEAD EKG FOR [facility] Test Date: 8914-34-83Npu Name: DORA JOSEPH Department: 5ECIPatient ID: [id number] 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: [id number]: 1970 Requested By: DARRION Cho Number: [id number] Reading MD: Rene Patterson MeasurementsIntervals [place] Rate: 61 P: 72PR: 152 QRS: 55QRSD: 106 T: 63QT: 398 QTc: 400 Interpretive StatementsSINUS RHYTHMPOSSIBLE RIGHT VENTRI CULAR CONDUCTION DELAY [RSR (QR) IN V1/V2]Electronically Signed On 01-22-2022 8:30:45 CDT by [facility] HealthcareDebbyAppiesMultic[facility]12 Lead [id number] 15:46:1012 LEAD EKG FOR [facility] Test Date: 4192-18-05Nvv Name: DORA JOSEPH Department: 5ECIPatient ID: [id number] 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: [id number]: 1970 Requested By: DARRION Cho Number: [id number] Reading MD: Rene Patterson MeasurementsIntervals [place] Rate: 61 P: 72PR: 152 QRS: 55QRSD: 106 T: 63QT: 398 QTc: 400 Interpretive StatementsSINUS RHYTHMPOSSIBLE RIGHT VENTRICULAR CONDUCTION DELAY [RSR (QR) IN V1/V2]Electronically Signed On 01-22-2022 8:30:45 CDT by [facility] HealthcareDebbyAppiesMultic[facility]12 Lead [id number] 15:46:1012 LEAD EKG FOR [facility] Test Date: 7753-46-08Jbn Name: DORA JOSEPH Department: 5ECIPatient ID: [id number] 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: [id number]: 1970 Requested By: DARRION Cho Number: [id number] Reading MD: Rene Patterson MeasurementsIntervals [place] Rate: 61 P: 72PR: 152 QRS: 55QRSD: 106 T: 63QT: 398 QTc: 400 Interpretive StatementsSINUS RHYTHMPOSSIBLE RIGHT VENTRICULAR CONDUCTION DELAY [RSR (QR) IN V1/V2]Electronically Signed On 01-22-2022 8:30:45 CDT by Rene Valle Ukdafb03 Lead [id number] 15:46:1012 LEAD EKG FOR [facility] Test Date: 3743-38-09Yjp Name: DORA JOSEPH Department: 5ECIPatient ID: [id number] 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: [id number]: 1970 Requested By: DARRION Cho Number: [id number] Reading MD: eRne Patterson MeasurementsIntervals [place] Rate: 61 P: 72PR: 152 QRS: 55QRSD: 106 T: 63QT: 398 QTc: 400 Interpretive StatementsSINUS RHYTHMPOSSIBLE RIGHT VENTRICULAR CONDUCTION DELAY [RSR (QR) IN V1/V2]Electronically Signed On 01-22-2022 8:30:45 CDT by Rene Valle Ajxqxd36 Lead [id number] 15:46:1012 LEAD EKG FOR [facility] Test Date: 1596-64-34Pyl Name: DORA JOSEPH Department: 5ECIPatient ID: [id number] 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: [id number]: 1970 Requested By: DARRION Cho Number: [id number] Reading MD: Rene Patterson MeasurementsIntervals [place] Rate: 61 P: 72PR: 152 QRS: 55QRSD: 106 T: 63QT: 398 QTc: 400 Interpretive StatementsSINUS RHYTHMPOSSIBLE RIGHT VENT RICULAR CONDUCTION DELAY [RSR (QR) IN V1/V2]Electronically Signed On 01-22-2022 8:30:45 CDT by Rene HerColey Pharmaceutical Group12 Lead [id number] 15:46:1012 LEAD EKG FOR [facility] Test Date: 1680-69-83Bol Name: DORA JOSEPH Department: 5ECIPatient ID: [id number] 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: [id number]: 1970 Requested By: DARRION Cho Number: [id number] Reading MD: Rene Patterson MeasurementsIntervals [place] Rate: 61 P: 72PR: 152 QRS: 55QRSD: 106 T: 63QT: 398 QTc: 400 Interpretive StatementsSINUS RHYTHMPOSSIBLE RIGHT VENTRICULAR CONDUCTION DELAY [RSR (QR) IN V1/V2]Electronically Signed On 01-22-2022 8:30:45 CDT by Rene TargetXChrisAppiesCompapl[facility] Niwain93 Lead [id number] 15:46:1012 LEAD EKG FOR [facility] Test Date: 2919-72-16Jvq Name: DORA JOSEPH Department: 5ECIPatient ID: [id number] 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: [id number]: 1970 Requested By: DARRION Cho Number: [id number] Reading MD: Rene Patterson MeasurementsIntervals [place] Rate: 61 P: 72PR: 152 QRS: 55QRSD: 106 T: 63QT: 398 QTc: 400 Interpretive StatementsSINUS RHYTHMPOSSIBLE RIGHT VENTRICULAR CONDUCTION DELAY [RSR (QR) IN V1/V2]Electronically Signed On 01-22-2022 8:30:45 CDT by Renerick AvitiaAppiesCompapl[facility] center Mzjtjg67 Lead [id number] 15:46:1012 LEAD EKG FOR [facility] Test Date: 5969-47-59Xoe Name: DORA JOSEPH Department: 5ECIPatient ID: [id number] 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: [id number]: 1970 Requested By: DARRION Cho Number: [id number] Reading MD: Rene Patterson MeasurementsIntervals [place] Rate: 61 P: 72PR: 152 QRS: 55QRSD: 106 T: 63QT: 398 QTc: 400 Interpretive StatementsSINUS RHYTHMPOSSIBLE RIGHT VENTRICULAR CONDUCTION DELAY [RSR (QR) IN V1/V2]Electronically Signed On 01-22-2022 8:30:45 CDT by [facility]12 Lead [id number] 15:46:1012 LEAD EKG FOR [facility] Test Date: 1705-59-62Lhh Name: DORA JOSEPH Department: 5ECIPatient ID: [id number] 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: [id number]: 1970 Requested By: DARRION Cho Number: [id number] Reading MD: Rene Patterson MeasurementsIntervals [place] Rate: 61 P: 72PR: 152 QRS: 55QRSD: 106 T: 63QT: 398 QTc: 400 Interpretive StatementsSINUS RHYTHMPOSSIBLE RIGHT VENTR ICULAR CONDUCTION DELAY [RSR (QR) IN V1/V2]Electronically Signed On 01-22-2022 8:30:45 CDT by [place] [address] Lead [id number] 15:46:1012 LEAD EKG FOR [facility] Test Date: 1002-40-89Dsu Name: DORA JOSEPH Department: 5ECIPatient ID: [id number] 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: [id number]: 1970 Requested By: DARRION Cho Number: [id number] Reading MD: Rene Patterson MeasurementsIntervals [place] Rate: 61 P: 72PR: 152 QRS: 55QRSD: 106 T: 63QT: 398 QTc: 400 Interpretive StatementsSINUS RHYTHMPOSSIBLE RIGHT VENTRICULAR CONDUCTION DELAY [RSR (QR) IN V1/V2]Electronically Signed On 01-22-2022 8:30:45 CDT by [facility]12 Lead [id number] 15:46:1012 LEAD EKG FOR [facility] Test Date: 8073-00-40Wno Name: DORA JOSEPH Department: 5ECIPatient ID: [id number] 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: [id number]: 1970 Requested By: DARRION Cho Number: [id number] Reading MD: Rene Patterson MeasurementsIntervals [place] Rate: 61 P: 72PR: 152 QRS: 55QRSD: 106 T: 63QT: 398 QTc: 400 Interpretive StatementsSINUS RHYTHMPOSSIBLE RIGHT VENTRICULAR CONDUCTION DELAY [RSR (QR) IN V1/V2]Electronically Signed On 01-22-2022 8:30:45 CDT by Rene RaanSCAHarris Afzbtm88 Lead [id number] 15:46:1012 LEAD EKG FOR [facility] Test Date: 3377-70-46Zid Name: DORA JOSEPH Department: 5ECIPatient ID: [id number] 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: [id number]: 1970 Requested By: DARRION Cho Number: [id number] Reading MD: Rene Patterson MeasurementsIntervals [place] Rate: 61 P: 72PR: 152 QRS: 55QRSD: 106 T: 63QT: 398 QTc: 400 Interpretive StatementsSINUS RHYTHMPOSSIBLE RIGHT VENTRICULAR CONDUCTION DELAY [RSR (QR) IN V1/V2]Electronically Signed On 01-22-2022 8:30:45 CDT by Rene [facility]Deb[facility]Paul[facility]12 Lead [id number] 15:46:1012 LEAD EKG FOR [facility] Test Date: 4769-66-87Vtx Name: DORA JOSEPH Department: 5ECIPatient ID: [id number] 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: [id number]: 1970 Requested By: DARRION Cho Number: [id number] Reading MD: Rene Patterson MeasurementsIntervals [place] Rate: 61 P: 72PR: 152 QRS: 55QRSD: 106 T: 63QT: 398 QTc: 400 Interpretive StatementsSINUS RHYTHMPOSSIBLE RIGHT VENTRI CULAR CONDUCTION DELAY [RSR (QR) IN V1/V2]Electronically Signed On 01-22-2022 8:30:45 CDT by Rene [facility] HospitalDebbySaint Joseph Berearis Vuobfo25 Lead [id number] 15:46:1012 LEAD EKG FOR [facility] Test Date: 3445-75-91Iwk Name: DORA JOSEPH Department: 5ECIPatient ID: [id number] 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: [id number]: 1970 Requested By: DARRION Cho Number: [id number] Reading MD: Rene Patterson MeasurementsIntervals [place] Rate: 61 P: 72PR: 152 QRS: 55QRSD: 106 T: 63QT: 398 QTc: 400 Interpretive StatementsSINUS RHYTHMPOSSIBLE RIGHT VENTRICULAR CONDUCTION DELAY [RSR (QR) IN V1/V2]Electronically Signed On 01-22-2022 8:30:45 CDT by Renerick Valle Mxaceq38 Lead [id number] 15:46:1012 LEAD EKG FOR [facility] Test Date: 1196-72-01Tkf Name: DORA JOSEPH Department: 5EPatient ID: [id number] 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: [id number]: 1970 Requested By: DARRION Cho Number: [id number] Reading MD: Rene Patterson MeasurementsIntervals [place] Rate: 61 P: 72PR: 152 QRS: 55QRSD: 106 T: 63QT: 398 QTc: 400 Interpretive StatementsSINUS RHYTHMPOSSIBLE RIGHT VENTRICULAR CONDUCTION DELAY [RSR (QR) IN V1/V2]Electronically Signed On 01-22-2022 8:30:45 CDT by Rene SadiAppiesCompaColey Pharmaceutical Group12 Lead [id number] 15:46:1012 LEAD EKG FOR [facility] Test Date: 4301-25-49Vme Name: DORA PAEZRY Department: 5EPatient ID: [id number] 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: [id number]: 1970 Requested By: DARRION Cho Number: [id number] Reading MD: Rene Patterson MeasurementsIntervals [place] Rate: 61 P: 72PR: 152 QRS: 55QRSD: 106 T: 63QT: 398 QTc: 400 Interpretive StatementsSINUS RHYTHMPOSSIBLE RIGHT VENTRICULAR CONDUCTION DELAY [RSR (QR) IN V1/V2]Electronically Signed On 01-22-2022 8:30:45 CDT by Rene SadiAppiesCompaplains [facility] Gwudxp80 Lead [id number] 15:46:1012 LEAD EKG FOR [facility] Test Date: 9562-33-38Czf Name: DORA JOSEPH Department: 5ECIPatient ID: [id number] 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: [id number]: 1970 Requested By: DARRION Cho Number: [id number] Reading MD: Rene Patterson MeasurementsIntervals [place] Rate: 61 P: 72PR: 152 QRS: 55QRSD: 106 T: 63QT: 398 QTc: 400 Interpretive StatementsSINUS RHYTHMPOSSIBLE RIGHT VENTR ICULAR CONDUCTION DELAY [RSR (QR) IN V1/V2]Electronically Signed On 01-22-2022 8:30:45 CDT by Rene [facility]12 Lead [id number] 15:46:1012 LEAD EKG FOR [facility] Test Date: 4561-97-01Njw Name: DORA JOSEPH Department: 5EPatient ID: [id number] 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: [id number]: 1970 Requested By: DARRION Cho Number: [id number] Reading MD: Rene Patterson MeasurementsIntervals [place] Rate: 61 P: 72PR: 152 QRS: 55QRSD: 106 T: 63QT: 398 QTc: 400 Interpretive StatementsSINUS RHYTHMPOSSIBLE RIGHT VENTRICULAR CONDUCTION DELAY [RSR (QR) IN V1/V2]Electronically Signed On 01-22-2022 8:30:45 CDT by Rene TargetXFood Matters MarketsValley Behavioral Health SystemColey Pharmaceutical Group12 Lead [id number] 15:46:1012 LEAD EKG FOR [facility] Test Date: 9690-99-62Hpq Name: DORA JOSEPH Department: 5ECIPatient ID: [id number] 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: [id number]: 1970 Requested By: DARRION Cho Number: [id number] Reading : Reen Patterson MeasurementsIntervals [place] Rate: 61 P: 72P R: 152 QRS: 55QRSD: 106 T: 63QT: 398 QTc: 400 Interpretive StatementsSINUS RHYTHMPOSSIBLE RIGHT VENTRICULAR CONDUCTION DELAY [RSR (QR) IN V1/V2]Electronically Signed On 01-22-2022 8:30:45 CDT by Rene [place] [address] Lead [id number] 15:46:1012 LEAD EKG FOR [facility] Test Date: 2342-43-64Edv Name: DORA JOSEPH Department: 5ECIPatient ID: [id number] 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: [id number]: 1970 Requested By: DARRION Cho Number: [id number] Reading MD: Rene Patterson MeasurementsIntervals [place] Rate: 61 P: 72PR: 152 QRS: 55QRSD: 106 T: 63QT: 398 QTc: 400 Interpretive StatementsSINUS RHYTHMPOSSIBLE RIGHT VENTRICULAR CONDUCTION DELAY [RSR (QR) IN V1/V2]Electronically Signed On 01-22-2022 8:30:45 CDT by Rene Valle [place] [address] Lead [id number] 15:46:1012 LEAD EKG FOR [facility] Test Date: 6585-03-65Tbm Name: DORA JOSEPH Department: 5ECIPatient ID: [id number] 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: [id number]: 1970 Requested By: DARRION Cho Number: [id number] Reading MD: Rene Patterson MeasurementsIntervals [place] Rate: 61 P: 72PR: 152 QRS: 55QRSD: 106 T: 63QT: 398 QTc: 400 Interpretive StatementsSINUS RHYTHMPOSSIBLE RIGHT PANKAJ TRICULAR CONDUCTION DELAY [RSR (QR) IN V1/V2]Electronically Signed On 01-22-2022 8:30:45 CDT by [facility] HospitalDebbyUniversity Hospitals Parma Medical CenterV 1+2 Ab+HIV1 p24 Ag SerPl Ql [place] 2022-01-18 07:02:58 Test Item Value Reference Range Interpretation Comments HIV 1+2 Ab+HIV1 p24 Ag SerPl Ql [place] NEGATIVE Negative (test code = 57335-1) [id number] 21:23:2512 LEAD EKG FOR [facility] Test Date: 2119-68-13Wls Name: DORA JOSEPH Department: 5520Patient ID: [id number] Room: 1D06Bzneyt: 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1970 Requested By: KARIN Ryan Number: [id number] Reading MD: Chiara Calles MeasurementsIntervals [place] Rate: 72 P: 90PR: 157 QRS: 87QRSD: 105 T: 90QT: 360 QTc: 384 Interpretive StatementsSINUS RHYTHMPOSSIBLE RIGHT VENTRICULAR CONDUCTION DELAY [RSR (QR) IN V1/V2]EARLY REPOLARIZATION [ST ELEVATION WITH NORMALLY INFLECTED T- WAVE]Electronically Signed On 01-17-2022 13:02:30 CDT by [facility] PARCXMART TECHNOLOGIESBella Vista GlcrcbDKN0049-34-77 21:23:2512 LEAD EKG FOR [facility] Test Date: 6226-75-90Brl Name: DORA BALDWIN Department: 5520Patient ID: [id number] Room: 0V06Nuznyq: 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1970 Requested By: JESSICA AOrder Number: [id number] Reading MD: Chiara Calles MeasurementsIntervals [place] Rate: 72 P: 90PR: 157 QRS: 87QRSD: 105 T: 90QT: 360 QTc: 384 Interpretive StatementsSINUS RHYTHMPOSSIBLE RIGHT VENTRICULAR CONDUCTION DELAY [RSR (QR) IN V1/V2]EARLY REPOLARIZATION [ST ELEVATION WITH NORMALLY INFLECTEDT- WAVE]Electronically Signed On 01-17-2022 13:02:30 CDT by [facility] HospitalCargomaticValley Behavioral Health SystemFitzealEkvhobKZV0082-65-69 21:23:2512 LEAD EKG FOR [facility] Test Date: 5221-11-97Vcc Name: DORA BALDWIN Department: 5520Patient ID: [id number] Room: 7N15Hnfrup: 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1970 Requested By: KARIN BASSETT AOrder Number: [id number] Reading MD: Chiara Calles MeasurementsIntervals [place] Rate: 72 P: 90PR: 157 QRS: 87QRSD: 105 T: 90QT: 360 QTc: 384 Interpretive StatementsSINUS RHYTHMPOSSIBLE RIGHT VENTRICULAR CONDUCTION DELAY [RSR (QR) IN V1/V2]EARLY REPOLARIZATION [ST ELEVATION WITH NORMALLY INFLECTED T- WAVE]Electronically Signed On 01-17-2022 13:02:30 CDT by [facility] HospitalCargomaticBella Vista SmgwvtJVF9850-60-79 21:23:2512 LEAD EKG FOR [facility] Test Date: 7149-25-96Awe Name: DORA JOSEPH Department: 5520Patient ID: [id number] Room: 1U14Ypeyqy: 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1970 Requested By: KARIN BASSETT AOrder Number: [id number] Reading MD: Chiara Calles MeasurementsIntervals [place] Rate: 72 P: 90PR:157 QRS: 87QRSD: 105 T: 90QT: 360 QTc: 384 Interpretive StatementsSINUS RHYTHMPOSSIBLE RIGHT VENTRICULAR CONDUCTION DELAY [RSR (QR) IN V1/V2]EARLY REPOLARIZATION [ST ELEVATION WITH NORMALLY INFLECTED T- WAVE]Electronically Signed On 01-17-2022 13:02:30 CDT by [facility]3VRMatthew [place] [id number] 21:23:2512 LEAD EKG FOR [facility] Test Date: 1197-54-56Xhn Name: DORA JOSEPH Department: 5520Patient ID: [id number] Room: 9C98Wqhade: 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1970 Requested By: KARIN BASSETT AOrder Number: [id number] Reading MD: Chiara Calles MeasurementsIntervals [place] Rate: 72 P: 90PR:157 QRS: 87QRSD: 105 T: 90QT: 360 QTc: 384 Interpretive StatementsSINUS RHYTHMPOSSIBLE RIGHT VENTRICULAR CONDUCTION DELAY [RSR (QR) IN V1/V2]EARLY REPOLARIZATION [ST ELEVATION WITH NORMALLY INFLECTED T- WAVE]Electronically Signed On 01-17-2022 13:02:30 CDT by [facility]3VRMatthew [place] [id number] 21:23:2512 LEAD EKG FOR [facility] Test Date: 0413-26-84Qjb Name: DORA JOSEPH Department: 5520Patient ID: [id number] Room: 7B23Vuragt: 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1970 Requested By: KARIN BASSETT AOrder Number: [id number] Reading MD: Chiara Calles MeasurementsIntervals [place] Rate: 72 P: 90PR: 157 QRS: 87QRSD: 105 T: 90QT: 360 QTc: 384 Interpretive StatementsSINUS RHYTHMPOSSIBLE RIGHT VENTRICULAR CONDUCTION DELAY [RSR (QR) IN V1/V2]EARLY REPOLARIZATION [ST ELEVATION WITH NORMALLY INFLECTED T- WAVE]Electronically Signed On 01-17-2022 13:02:30 CDT by [facility] PARCXMART TECHNOLOGIESMatthew [place] [id number] 21:23:2512 LEAD EKG FOR [facility] Test Date: 6764-91-17Ows Name: DORA JOSEPH Department: 5520Patient ID: [id number] Room: 7C56Pehuwr: 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1970 Requested By: KARIN BASSETT AOrder Number: [id number] Reading MD: Chiara Calles MeasurementsIntervals [place] Rate: 72 P: 90PR:157 QRS: 87QRSD: 105 T: 90QT: 360 QTc: 384 Interpretive StatementsSINUS RHYTHMPOSSIBLE RIGHT VENTRICULAR CONDUCTION DELAY [RSR (QR) IN V1/V2]EARLY REPOLARIZATION [ST ELEVATION WITH NORMALLY INFLECTED T- WAVE]Electronically Signed On 01-17-2022 13:02:30 CDT by [facility] HospitalCargomaticBella Vista QiduqkNCL2157-19-59 21:23:2512 LEAD EKG FOR [facility] Test Date: 2699-64-91Flf Name: DORA JOSEPH Department: 5520Patient ID: [id number] Room: 4L85Cfuyzu: 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1970 Requested By: KARIN BASSETT AOrder Number: [id number] Reading MD: Chiara Calles MeasurementsIntervals [place] Rate: 72 P: 90PR: 157 QRS: 87QRSD: 105 T: 90QT: 360 QTc: 384 Interpretive StatementsSINUS RHYTHMPOSSIBLE RIGHT VENTRICULAR CONDUCTION DELAY [RSR (QR) IN V1/V2]EARLY REPOLARIZATION [ST ELEVATION WITH NORMALLY INFLECTED T- WAVE]Electronically Signed On 01-17-2022 13:02:30 CDT by [facility] PARCXMART TECHNOLOGIESMatthew [place] [id number] 21:23:2512 LEAD EKG FOR [facility] Test Date: 3281-24-46Vch Name: DORA JOSEPH Department: 5520Patient ID: [id number] Room: 5Q34Dabftj: 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1970 Requested By: KARIN BASSETT AOrder Number: [id number] Reading MD: Chiara Calles MeasurementsIntervals [place] Rate: 72 P: 90PR: 157 QRS: 87QRSD: 105 T: 90QT: 360 QTc: 384 Interpretive StatementsSINUS RHYTHMPOSSIBLE RIGHT VENTRICULAR CONDUCTION DELAY [RSR (QR) IN V1/V2]EARLY REPOLARIZATION [ST ELEVATION WITH NORMALLY INFLECTED T- WAVE]Electronically Signed On 01-17-2022 13:02:30 CDT by [facility] HospitalKampyleKimberly V[place] [id number] 21:23:2512 LEAD EKG FOR [facility] Test Date: 1840-41-76Ufl Name: DORA JOSEPH Department: 5520Patient ID: [id number] Room: 9L66Nqscyv: 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1970 Requested By: JESSICA AOrder Number: [id number] Reading MD: Chiara Calles MeasurementsIntervals [place] Rate: 72 P: 90PR:157 QRS: 87QRSD: 105 T: 90QT: 360 QTc: 384 Interpretive StatementsSINUS RHYTHMPOSSIBLE RIGHT VENTRICULAR CONDUCTION DELAY [RSR (QR) IN V1/V2]EARLY REPOLARIZATION [ST ELEVATION WITH NORMALLY INFLECTED T- WAVE]Electronically Signed On 01-17-2022 13:02:30 CDT by [facility] HospitalCargomaticMatthew [place] [id number] 21:23:2512 LEAD EKG FOR [facility] Test Date: 6621-97-38Ijq Name: DORA JOSEPH Department: 5520Patient ID: [id number] Room: 3W71Xziraf: 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1970 Requested By: KARIN BASSETT AOrder Number: [id number] Reading MD: Chiara Calles MeasurementsIntervals [place] Rate: 72 P: 90PR: 157 QRS: 87QRSD: 105 T: 90QT: 360 QTc: 384 Interpretive StatementsSINUS RHYTHMPOSSIBLE RIGHT VENTRICULAR CONDUCTION DELAY [RSR (QR) IN V1/V2]EARLY REPOLARIZATION [ST ELEVATION WITH NORMALLY INFLECTEDT- WAVE]Electronically Signed On 01-17-2022 13:02:30 CDT by [place] [address]2022-05-26 21:23:2512 LEAD EKG FOR [facility] Test Date: 9624-88-04Djo Name: DORA JOSEPH Department: 5520Patient ID: [id number] Room: 1G96Qivrul: 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1970 Requested By: KARIN BASSETT AOrder Number: [id number] Reading MD: Chiara Calles MeasurementsIntervals [place] Rate: 72 P: 90PR:157 QRS: 87QRSD: 105 T: 90QT: 360 QTc: 384 Interpretive StatementsSINUS RHYTHMPOSSIBLE RIGHT VENTRICULAR CONDUCTION DELAY [RSR (QR) IN V1/V2]EARLY REPOLARIZATION [ST ELEVATION WITH NORMALLY INFLECTED T- WAVE]Electronically Signed On 01-17-2022 13:02:30 CDT by [facility] PARCXMART TECHNOLOGIESMatthew [place] [id number] 21:23:2512 LEAD EKG FOR [facility] Test Date: 4773-68-32Zdy Name: DORA JOSEPH Department: 5520Patient ID: [id number] Room: 5E46Rteina: 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1970 Requested By: KARIN BASSETT AOrder Number: [id number] Reading MD: Chiara Calles MeasurementsIntervals [place] Rate: 72 P: 90PR:157 QRS: 87QRSD: 105 T: 90QT: 360 QTc: 384 Interpretive StatementsSINUS RHYTHMPOSSIBLE RIGHT VENTRICULAR CONDUCTION DELAY [RSR (QR) IN V1/V2]EARLY REPOLARIZATION [ST ELEVATION WITH NORMALLY INFLECTED T- WAVE]Electronically Signed On 01-17-2022 13:02:30 CDT by [facility]3VRMatthew V[place] [id number] 21:23:2512 LEAD EKG FOR [facility] Test Date: 2119-23-06Lfo Name: DORA JOSEPH Department: 5520Patient ID: [id number] Room: 3J94Clxvya: 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1970 Requested By: KARIN BASSETT AOrder Number: [id number] Reading MD: Chiara Calles MeasurementsIntervals [place] Rate: 72 P: 90PR:157 QRS: 87QRSD: 105 T: 90QT: 360 QTc: 384 Interpretive StatementsSINUS RHYTHMPOSSIBLE RIGHT VENTRICULAR CONDUCTION DELAY [RSR (QR) IN V1/V2]EARLY REPOLARIZATION [ST ELEVATION WITH NORMALLY INFLECTED T- WAVE]Electronically Signed On 01-17-2022 13:02:30 CDT by Chiara Mission Marketsbakari3VRMatthew [place] [id number] 21:23:2512 LEAD EKG FOR [facility] Test Date: 5933-54-53Jed Name: DORA BALDWIN Department: 5520Patient ID: [id number] Room: 5Y43Hvcxdc: 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1970 Requested By: KARIN BASSETT AOrder Number: [id number] Reading MD: Chiara Calles MeasurementsIntervals [place] Rate: 72 P: 90PR:157 QRS: 87QRSD: 105 T: 90QT: 360 QTc: 384 Interpretive StatementsSINUS RHYTHMPOSSIBLE RIGHT VENTRICULAR CONDUCTION DELAY [RSR (QR) IN V1/V2]EARLY REPOLARIZATION [ST ELEVATION WITH NORMALLY INFLECTED T- WAVE]Electronically Signed On 01-17-2022 13:02:30 CDT by Chiara PARCXMART TECHNOLOGIESBella Vista XvfaykNGJ4437-66-00 21:23:2512 LEAD EKG FOR [facility] Test Date: 9783-16-43Bts Name: DORA BALDWIN Department: 5520Patient ID: [id number] Room: 4K60Qslipc: 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1970 Requested By: KARIN BASSETT AOrder Number: [id number] Reading MD: Chiara Calles MeasurementsIntervals [place] Rate: 72 P: 90PR: 157 QRS: 87QRSD: 105 T: 90QT: 360 QTc: 384 Interpretive StatementsSINUS RHYTHMPOSSIBLE RIGHT VENTRICULAR CONDUCTION DELAY [RSR (QR) IN V1/V2]EARLY REPOLARIZATION [ST ELEVATION WITH NORMALLY INFLECTED T- WAVE]Electronically Signed On 01-17-2022 13:02:30 CDT by UpTapEKG2022-05-26 21:23:2512 LEAD EKG FOR [facility] Test Date: 5163-92-23Hws Name: DORA PAEZRY Department: 5520Patient ID: [id number] Room: 3G82Nxtyid: 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1970 Requested By: JESSICA AOrder Number: [id number] Reading MD: Chiara Calles MeasurementsIntervals [place] Rate: 72 P: 90PR:157 QRS: 87QRSD: 105 T: 90QT: 360 QTc: 384 Interpretive StatementsSINUS RHYTHMPOSSIBLE RIGHT VENTRICULAR CONDUCTION DELAY [RSR (QR) IN V1/V2]EARLY REPOLARIZATION [ST ELEVATION WITH NORMALLY INFLECTED T- WAVE]Electronically Signed On 01-17-2022 13:02:30 CDT by AppAddictiveValley Behavioral Health SystemColey Pharmaceutical GroupBwigvzFRR1356-56-09 21:23:2512 LEAD EKG FOR [facility] Test Date: 5550-66-79Cbl Name: DORA PAEZRY Department: 5520Patient ID: [id number] Room: 1B49Upovyr: 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1970 Requested By: KARIN BASSETT AOrder Number: [id number] Reading MD: Chiara Calles MeasurementsIntervals [place] Rate: 72 P: 90PR: 157 QRS: 87QRSD: 105 T: 90QT: 360 QTc: 384 Interpretive StatementsSINUS RHYTHMPOSSIBLE RIGHT VENTRICULAR CONDUCTION DELAY [RSR (QR) IN V1/V2]EARLY REPOLARIZATION [ST ELEVATION WITH NORMALLY INFLECTED T-W AVE]Electronically Signed On 01-17-2022 13:02:30 CDT by [facility] PARCXMART TECHNOLOGIESMatthew [place] [id number] 21:23:2512 LEAD EKG FOR [facility] Test Date: 0601-52-72Esf Name: DORA JOSEPH Department: 5520Patient ID: [id number] Room: 4N51Ugyztq: 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1970 Requested By: KARIN BASSETT AOrder Number: [id number] Reading MD: Chiara Calles MeasurementsIntervals [place] Rate: 72 P: 90PR:157 QRS: 87QRSD: 105 T: 90QT: 360 QTc: 384 Interpretive StatementsSINUS RHYTHMPOSSIBLE RIGHT VENTRICULAR CONDUCTION DELAY [RSR (QR) IN V1/V2]EARLY REPOLARIZATION [ST ELEVATION WITH NORMALLY INFLECTED T- WAVE]Electronically Signed On 01-17-2022 13:02:30 CDT by [facility] PARCXMART TECHNOLOGIESMatthew [place] [id number] 21:23:2512 LEAD EKG FOR [facility] Test Date: 6313-51-70Thl Name: DORA JOSEPH Department: 5520Patient ID: [id number] Room: 3Q54Zehpgx: 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1970 Requested By: KARIN BASSETT AOrder Number: [id number] Reading MD: Chiara Calles MeasurementsIntervals [place] Rate: 72 P: 90PR:157 QRS: 87QRSD: 105 T: 90QT: 360 QTc: 384 Interpretive StatementsSINUS RHYTHMPOSSIBLE RIGHT VENTRICULAR CONDUCTION DELAY [RSR (QR) IN V1/V2]EARLY REPOLARIZATION [ST ELEVATION WITH NORMALLY INFLECTED T- WAVE]Electronically Signed On 01-17-2022 13:02:30 CDT by [facility] PARCXMART TECHNOLOGIESMatthew [place] [id number] 21:23:2512 LEAD EKG FOR [facility] Test Date: 0948-01-69Ksv Name: DORA PAEZRY Department: 5520Patient ID: [id number] Room: 6Z58Klijns: 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1970 Requested By: KARIN BASSETT AOrder Number: [id number] Reading MD: Chiara Calles MeasurementsIntervals [place] Rate: 72 P: 90PR:157 QRS: 87QRSD: 105 T: 90QT: 360 QTc: 384 Interpretive StatementsSINUS RHYTHMPOSSIBLE RIGHT VENTRICULAR CONDUCTION DELAY [RSR (QR) IN V1/V2]EARLY REPOLARIZATION [ST ELEVATION WITH NORMALLY INFLECTED T- WAVE]Electronically Signed On 01-17-2022 13:02:30 CDT by UpTapEKG2022-05-26 21:23:2512 LEAD EKG FOR [facility] Test Date: 7753-07-24Xsa Name: DORA JOSEPH Department: 5520Patient ID: [id number] Room: 2R76Robvqb: 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 (test No code = 25395-6) ICU? (test code = No 71981-6) Symptomatic as No defined by CDC? (test code = 34050-1) Employed in No Healthcare? (test code = 01643-2) Resident in a No congregate care setting (including nursing homes, residential care for people with intellectual and developmental disabilities, psychiatric treatment facilities, group homes, board and care homes, homeless penitentiary, foster care or other): (test code = 57997-7) SARS-CoV-2 ORF1ab NOT DETECTED Not Detected INTERPRETA TION: No Resp Ql OLENA+probe detectable levels of (test code = SARS-CoV-2 06079-8) Coronavirus (COVID-19) were present in this patient's [...] SARS-CoV-2 mole cular diagnostic assa y utilizes [employer] Field [employer]ician Mediated Amplification ( TMA) technology to r apidly detect the SARS -CoV-2 (COVID-19) viru s from respiratory adriana ples. In accordance with\\XC2A0\\the FDA's guidance docume nt "Policy for Diagnostic Test s for Coronavirus Disease-2019 du [facility] the Public [facility]", ginger s test was developed, and its performance characteristics were verified by the [facility] molecular diagn ostics laboratory and is authorized for clinical diagno stic use. \\XC2A0\\Thi s laboratory is certified under the Clinical Labora tory Improvement Amendments (CLI A) as qualified to pe rform high complexity clinical labora tory testing. HHSPOCT CREATININE POC docked [id number] 13:57:55 Test Item Value Reference Range Interpretation Comments Creatinine POC (test 2.4 mg/dL 0.6-1.3 H [facility] an Notified code = 36047460) eGFR (test code = 30 See_Comment L [Automate d message] [id number]) The system whic h generated this result transmit dain reference range : >=90 mL/min/1.7 3 m2. The reference r meredith was not used to interpret this result as normal/abnormal . eGFR If Am (test 35 See_Comment L [A utomated message] code = 16730668) The system which generated this result transmit dain reference range : >=90 mL/min/1.7 3 m2. The reference r meredith was not used to interpret this result as normal/abnormal . Lab Interpretation (test Abnormal code = 71041-3) [facility] CRE[facility] POC docked [id number] 13:57:55 Test Item Value Reference Range Interpretation Comments Creatinine POC (test 2.4 mg/dL 0.6-1.3 H Physici an Notified code = 62424411) eGFR (test code = 30 See_Comment L [Automate d message] 36741279) The system [employer] generated this result transmit dain reference range : >=90 mL/min/1.7 3 m2. The reference r meredith was not used to interpret this result as normal/abnormal . eGFR If Am (test 35 See_Comment L [A utomated message] code = 75798047) The system which generated this result transmit dain reference range : >=90 mL/min/1.7 3 m2. The reference r meredith was not used to interpret this result as normal/abnormal . Lab Interpretation (test Abnormal code = 19263-1) [facility] CREATININE POC docked [id number] 13:57:55 Test Item Value Reference Range Interpretation Comments Creatinine POC (test 2.4 mg/dL 0.6-1.3 H Physici an Notified code = 23511577) eGFR (test code = 30 See_Comment L [Automate d message] 12093138) The system [employer] generated this result transmit dain reference range : >=90 mL/min/1.7 3 m2. The reference r meredith was not used to interpret this result as normal/abnormal . eGFR If Am (test 35 See_Comment L [A utomated message] code = 69466691) The system which generated this result transmit dain reference range : >=90 mL/min/1.7 3 m2. The reference r meredith was not used to interpret this result as normal/abnormal . Lab Interpretation (test Abnormal code = 62533-4) [facility] [id number] 13:57:55 Test Item Value Reference Range Interpretation Comments Creatinine POC (test 2.4 mg/dL 0.6-1.3 H Physici an Notified code = 48636712) eGFR (test code = 30 See_Comment L [Automate d message] 29972466) The system [employer] generated this result transmit dain reference range : >=90 mL/min/1.7 3 m2. The reference r meredith was not used to interpret this result as normal/abnormal . eGFR If Am (test 35 See_Comment L [A utomated message] code = 61775418) The system which generated this result transmit dain reference range : >=90 mL/min/1.7 3 m2. The reference r meredith was not used to interpret this result as normal/abnormal . Lab Interpretation (test Abnormal code = 97797-3) [facility] CREATININE POC docked [id number] 13:57:55 Test Item Value Reference Range Interpretation Comments Creatinine POC (test 2.4 mg/dL 0.6-1.3 H Physici an Notified code = 67586352) eGFR (test code = 30 See_Comment L [Automate d message] 74752363) The system [employer] h generated this result transmit dain reference range : >=90 mL/min/1.7 3 m2. The reference r meredith was not used to interpret this result as normal/abnormal . eGFR If Am (test 35 See_Comment L [A utomated message] code = 54282986) The system which generated this result transmit dain reference range : >=90 mL/min/1.7 3 m2. The reference r meredith was not used to interpret this result as normal/abnormal . Lab Interpretation (test Abnormal code = 09809-0) [facility] CREATININE POC docked [id number] 13:57:55 Test Item Value Reference Range Interpretation Comments Creatinine POC (test 2.4 mg/dL 0.6-1.3 H Physici an Notified code = 09477980) eGFR If non- Am 30 See_Comment L [Aut omated message] (test code = 74515870) The s ystem which generated this result transmit dain reference range : >=90 mL/min/1.7 3 m2. The reference r meredith was not used to interpret this result as normal/abnormal . eGFR If Am (test 35 See_Comment L [A utomated message] code = 12455162) The system which generated this result transmit dain reference range : >=90 mL/min/1.7 3 m2. The reference r meredith was not used to interpret this result as normal/abnormal . Lab Interpretation (test Abnormal code = 94745-9) [facility] CREATININE POC docked [id number] 13:57:55 Test Item Value Reference Range Interpretation Comments Creatinine POC (test 2.4 mg/dL 0.6-1.3 H Physici an Notified code = 70339562) eGFR If non- Am 30 See_Comment L [Aut omated message] (test code = 00085655) The s ystem which generated this result transmit dain reference range : >=90 mL/min/1.7 3 m2. The reference r meredith was not used to interpret this result as normal/abnormal . eGFR If Am (test 35 See_Comment L [A utomated message] code = 33565316) The system which generated this result transmit dain reference range : >=90 mL/min/1.7 3 m2. The reference r meredith was not used to interpret this result as normal/abnormal . Lab Interpretation (test Abnormal code = 37920-3) [facility] CREATININE POC docked [id number] 13:57:55 Test Item Value Reference Range Interpretation Comments Creatinine POC (test 2.4 mg/dL 0.6-1.3 H Physici an Notified code = 61537476) eGFR If non- Am 30 See_Comment L [Aut omated message] (test code = 75343560) The s ystem which generated this result transmit dain reference range : >=90 mL/min/1.7 3 m2. The reference r meredith was not used to interpret this result as normal/abnormal . eGFR If Am (test 35 See_Comment L [A utomated message] code = 83993677) The system which generated this result transmit dain reference range : >=90 mL/min/1.7 3 m2. The reference r meredith was not used to interpret this result as normal/abnormal . Lab Interpretation (test Abnormal code = 79653-7) [facility] CREATININE POC docked [id number] 13:57:55 Test Item Value Reference Range Interpretation Comments Creatinine POC (test 2.4 mg/dL 0.6-1.3 H Physici an Notified code = 65378323) eGFR If non- Am 30 See_Comment L [Aut omated message] (test code = 80518722) The s ystem which generated this result transmit dain reference range : >=90 mL/min/1.7 3 m2. The reference r meredith was not used to interpret this result as normal/abnormal . eGFR If Am (test 35 See_Comment L [A utomated message] code = 26241914) The system which generated this result transmit dain reference range : >=90 mL/min/1.7 3 m2. The reference r meredith was not used to interpret this result as normal/abnormal . Lab Interpretation (test Abnormal code = 67068-1) [facility] CREATININE POC docked [id number] 13:57:55 Test Item Value Reference Range Interpretation Comments Creatinine POC (test 2.4 mg/dL 0.6-1.3 H Physici an Notified code = 03150605) eGFR If non- Am 30 See_Comment L [Aut omated message] (test code = 76850099) The s ystem which generated this result transmit dain reference range : >=90 mL/min/1.7 3 m2. The reference r meredith was not used to interpret this result as normal/abnormal . eGFR If Am (test 35 See_Comment L [A utomated message] code = 29428141) The system which generated this result transmit dain reference range : >=90 mL/min/1.7 3 m2. The reference r meredith was not used to interpret this result as normal/abnormal . Lab Interpretation (test Abnormal code = 01845-2) [facility] CREATININE POC docked [id number] 13:57:55 Test Item Value Reference Range Interpretation Comments Creatinine POC (test 2.4 mg/dL 0.6-1.3 H Physici an Notified code = 50432246) eGFR If non- Am 30 See_Comment L [Aut omated message] (test code = 53921885) The s ystem which generated this result transmit dain reference range : >=90 mL/min/1.7 3 m2. The reference r meredith was not used to interpret this result as normal/abnormal . eGFR If Am (test 35 See_Comment L [A utomated message] code = 64686551) The system which generated this result transmit dain reference range : >=90 mL/min/1.7 3 m2. The reference r meredith was not used to interpret this result as normal/abnormal . Lab Interpretation (test Abnormal code = 25118-3) [facility] CREATININE POC docked [id number] 13:57:55 Test Item Value Reference Range Interpretation Comments Creatinine POC (test 2.4 mg/dL 0.6-1.3 H Physici an Notified code = 96728934) eGFR If non- Am 30 See_Comment L [Aut omated message] (test code = 72960678) The s ystem which generated this result transmit dain reference range : >=90 mL/min/1.7 3 m2. The reference r meredith was not used to interpret this result as normal/abnormal . eGFR If Am (test 35 See_Comment L [A utomated message] code = 88973358) The system which generated this result transmit dain reference range : >=90 mL/min/1.7 3 m2. The reference r meredith was not used to interpret this result as normal/abnormal . Lab Interpretation (test Abnormal code = 32446-4) [facility] CREATININE POC docked [id number] 13:57:55 Test Item Value Reference Range Interpretation Comments Creatinine POC (test 2.4 mg/dL 0.6-1.3 H Physici an Notified code = 45735745) eGFR If non- Am 30 See_Comment L [Aut omated message] (test code = 52421621) The s ystem which generated this result transmit dain reference range : >=90 mL/min/1.7 3 m2. The reference r meredith was not used to interpret this result as normal/abnormal . eGFR If Am (test 35 See_Comment L [A utomated message] code = 72420501) The system which generated this result transmit dain reference range : >=90 mL/min/1.7 3 m2. The reference r meredith was not used to interpret this result as normal/abnormal . Lab Interpretation (test Abnormal code = 72561-4) [facility] [id number] 13:57:55 Test Item Value Reference Range Interpretation Comments Creatinine POC (test 2.4 mg/dL 0.6-1.3 H Physici an Notified code = 20477953) eGFR If non- Am 30 See_Comment L [Aut omated message] (test code = 24654008) The s ystem which generated this result transmit dain reference range : >=90 mL/min/1.7 3 m2. The reference r meredith was not used to interpret this result as normal/abnormal . eGFR If Am (test 35 See_Comment L [A utomated message] code = 41373281) The system which generated this result transmit dain reference range : >=90 mL/min/1.7 3 m2. The reference r meredith was not used to interpret this result as normal/abnormal . Lab Interpretation (test Abnormal code = 93951-2) [facility] CREATININE POC docked [id number] 13:57:55 Test Item Value Reference Range Interpretation Comments Creatinine POC (test 2.4 mg/dL 0.6-1.3 H Physici an Notified code = 94990836) eGFR If non- Am 30 See_Comment L [Aut omated message] (test code = 79684020) The s ystem which generated this result transmit dain reference range : >=90 mL/min/1.7 3 m2. The reference r meredith was not used to interpret this result as normal/abnormal . eGFR If Am (test 35 See_Comment L [A utomated message] code = 04893662) The system which generated this result transmit dain reference range : >=90 mL/min/1.7 3 m2. The reference r meredith was not used to interpret this result as normal/abnormal . Lab Interpretation (test Abnormal code = 72692-6) [facility] CREATININE POC docked [id number] 13:57:55 Test Item Value Reference Range Interpretation Comments Creatinine POC (test 2.4 mg/dL 0.6-1.3 H Physici an Notified code = 90330540) eGFR If non- Am 30 See_Comment L [Aut omated message] (test code = 17566968) The s ystem which generated this result transmit dain reference range : >=90 mL/min/1.7 3 m2. The reference r meredith was not used to interpret this result as normal/abnormal . eGFR If Am (test 35 See_Comment L [A utomated message] code = 53269860) The system which generated this result transmit dain reference range : >=90 mL/min/1.7 3 m2. The reference r meredith was not used to interpret this result as normal/abnormal . Lab Interpretation (test Abnormal code = 04022-5) [facility] [id number] 13:57:55 Test Item Value Reference Range Interpretation Comments Creatinine POC (test 2.4 mg/dL 0.6-1.3 H Physici an Notified code = 04027060) eGFR If non- Am 30 See_Comment L [Aut omated message] (test code = 64522411) The s ystem which generated this result transmit dain reference range : >=90 mL/min/1.7 3 m2. The reference r meredith was not used to interpret this result as normal/abnormal . eGFR If Am (test 35 See_Comment L [A utomated message] code = 76565798) The system which generated this result transmit dain reference range : >=90 mL/min/1.7 3 m2. The reference r meredith was not used to interpret this result as normal/abnormal . Lab Interpretation (test Abnormal code = 19291-8) [facility] CREATININE POC docked [id number] 13:57:55 Test Item Value Reference Range Interpretation Comments Creatinine POC (test 2.4 mg/dL 0.6-1.3 H Physici an Notified code = 59369921) eGFR If non- Am 30 See_Comment L [Aut omated message] (test code = 19317522) The s ystem which generated this result transmit dain reference range : >=90 mL/min/1.7 3 m2. The reference r meredith was not used to interpret this result as normal/abnormal . eGFR If Am (test 35 See_Comment L [A utomated message] code = 95430846) The system which generated this result transmit dain reference range : >=90 mL/min/1.7 3 m2. The reference r meredith was not used to interpret this result as normal/abnormal . Lab Interpretation (test Abnormal code = 73469-2) [facility] [id number] 13:57:55 Test Item Value Reference Range Interpretation Comments Creatinine POC (test 2.4 mg/dL 0.6-1.3 H Physici an Notified code = 61955957) eGFR If non- Am 30 See_Comment L [Aut omated message] (test code = 34168481) The s ystem which generated this result transmit dain reference range : >=90 mL/min/1.7 3 m2. The reference r meredith was not used to interpret this result as normal/abnormal . eGFR If Am (test 35 See_Comment L [A utomated message] code = 97838304) The system which generated this result transmit dain reference range : >=90 mL/min/1.7 3 m2. The reference r meredith was not used to interpret this result as normal/abnormal . Lab Interpretation (test Abnormal code = 47829-1) [facility] [id number] 13:57:55 Test Item Value Reference Range Interpretation Comments Creatinine POC (test 2.4 mg/dL 0.6-1.3 H Physici an Notified code = 08637504) eGFR If non- Am 30 See_Comment L [Aut omated message] (test code = 98099993) The s ystem which generated this result transmit dain reference range : >=90 mL/min/1.7 3 m2. The reference r meredith was not used to interpret this result as normal/abnormal . eGFR If Am (test 35 See_Comment L [A utomated message] code = 26374260) The system which generated this result transmit dain reference range : >=90 mL/min/1.7 3 m2. The reference r meredith was not used to interpret this result as normal/abnormal . Lab Interpretation (test Abnormal code = 03775-0) [facility] CREATININE POC docked [id number] 13:57:55 Test Item Value Reference Range Interpretation Comments Creatinine POC (test 2.4 mg/dL 0.6-1.3 H Physici an Notified code = 61224689) eGFR (test code = 30 See_Comment L [Automate d message] 13125298) The system whic h generated this result transmit dain reference range : >=90 mL/min/1.7 3 m2. The reference r meredith was not used to interpret this result as normal/abnormal . eGFR If Am (test 35 See_Comment L [A utomated message] code = 43096742) The system which generated this result transmit dain reference range : >=90 mL/min/1.7 3 m2. The reference r meredith was not used to interpret this result as normal/abnormal . Lab Interpretation (test Abnormal code = 83124-7) [facility] CREATININE POC docked [id number] 13:57:55 Test Item Value Reference Range Interpretation Comments Creatinine POC (test 2.4 mg/dL 0.6-1.3 H Physici an Notified code = 26813076) eGFR (test code = 30 See_Comment L [Automate d message] 36328861) The system [employer] generated this result transmit dain reference range : >=90 mL/min/1.7 3 m2. The reference r meredith was not used to interpret this result as normal/abnormal . eGFR If Am (test 35 See_Comment L [A utomated message] code = 31636913) The system which generated this result transmit dain reference range : >=90 mL/min/1.7 3 m2. The reference r meredith was not used to interpret this result as normal/abnormal . Lab Interpretation (test Abnormal code = 86991-9) [facility] CREATININE POC docked [id number] 13:57:55 Test Item Value Reference Range Interpretation Comments Creatinine POC (test 2.4 mg/dL 0.6-1.3 H Physici an Notified code = 06423783) eGFR (test code = 30 See_Comment L [Automate d message] 15456947) The system [employer] generated this result transmit dain reference range : >=90 mL/min/1.7 3 m2. The reference r meredith was not used to interpret this result as normal/abnormal . eGFR If Am (test 35 See_Comment L [A utomated message] code = 43078991) The system which generated this result transmit dain reference range : >=90 mL/min/1.7 3 m2. The reference r meredith was not used to interpret this result as normal/abnormal . Lab Interpretation (test Abnormal code = 57872-3) [facility] BMP POC docked [id number] 13:48:46 Test Item Value Reference Range Interpretation Comments Sodium POC (test code = 126 mmol/L 136-145 L 08540524) Potassium POC (test code 4.4 mmol/L 3.5-5.1 = 22679089) Chloride POC (test code 100 mmol/L 98-107 = 21697202) TCO2 POC (test code = 17 mmol/L 21-32 L Physic aylin Notified 24738122) Urea Nitrogen POC (test 36 mg/dL 7-18 H code = 47136403) Glucose POC (test code = 114 mg/dL 74-106 H 48674215) Hemoglobin POC (test 11.9 g/dL 12-16 L code = 20783613) Hematocrit POC (test 35.0 % 37.0-47.0 L code = 97387231) Lab Interpretation (test Abnormal code = 17727-4) [facility] POC docked [id number] 13:48:46 Test Item Value Reference Range Interpretation Comments Sodium POC (test code = 126 mmol/L 136-145 L 91358853) Potassium POC (test code 4.4 mmol/L 3.5-5.1 = 60031881) Chloride POC (test code 100 mmol/L 98-107 = 60628332) TCO2 POC (test code = 17 mmol/L 21-32 L Physic aylin Notified 53160686) Urea Nitrogen POC (test 36 mg/dL 7-18 H code = 98321546) Glucose POC (test code = 114 mg/dL 74-106 H 67839158) Hemoglobin POC (test 11.9 g/dL 12-16 L code = 52120682) Hematocrit POC (test 35.0 % 37.0-47.0 L code = 69150640) Lab Interpretation (test Abnormal code = 41211-8) [facility] POC docked [id number] 13:48:46 Test Item Value Reference Range Interpretation Comments Sodium POC (test code = 126 mmol/L 136-145 L 98726478) Potassium POC (test code 4.4 mmol/L 3.5-5.1 = 57328631) Chloride POC (test code 100 mmol/L 98-107 = 12048086) TCO2 POC (test code = 17 mmol/L 21-32 L Physic aylin Notified 88879050) Urea Nitrogen POC (test 36 mg/dL 7-18 H code = 12790393) Glucose POC (test code = 114 mg/dL 74-106 H 05326830) Hemoglobin POC (test 11.9 g/dL 12-16 L code = 04091683) Hematocrit POC (test 35.0 % 37.0-47.0 L code = 11105027) Lab Interpretation (test Abnormal code = 80164-4) [facility] POC docked [id number] 13:48:46 Test Item Value Reference Range Interpretation Comments Sodium POC (test code = 126 mmol/L 136-145 L 91019710) Potassium POC (test code 4.4 mmol/L 3.5-5.1 = 67045525) Chloride POC (test code 100 mmol/L 98-107 = 69725471) TCO2 POC (test code = 17 mmol/L 21-32 L Physic aylin Notified 09094877) Urea Nitrogen POC (test 36 mg/dL 7-18 H code = 13569541) Glucose POC (test code = 114 mg/dL 74-106 H 00956130) Hemoglobin POC (test 11.9 g/dL 12-16 L code = 19049453) Hematocrit POC (test 35.0 % 37.0-47.0 L code = 29275417) Lab Interpretation (test Abnormal code = 68877-2) [facility] POC docked [id number] 13:48:46 Test Item Value Reference Range Interpretation Comments Sodium POC (test code = 126 mmol/L 136-145 L 54038705) Potassium POC (test code 4.4 mmol/L 3.5-5.1 = 45466423) Chloride POC (test code 100 mmol/L 98-107 = 10033294) TCO2 POC (test code = 17 mmol/L 21-32 L Physic aylin Notified 17452718) Urea Nitrogen POC (test 36 mg/dL 7-18 H code = 48304479) Glucose POC (test code = 114 mg/dL 74-106 H 75306164) Hemoglobin POC (test 11.9 g/dL 12-16 L code = 66430101) Hematocrit POC (test 35.0 % 37.0-47.0 L code = 09226761) Lab Interpretation (test Abnormal code = 74822-9) [facility] POC docked [id number] 13:48:46 Test Item Value Reference Range Interpretation Comments Sodium POC (test code = 126 mmol/L 136-145 L 10418471) Potassium POC (test code 4.4 mmol/L 3.5-5.1 = 30029746) Chloride POC (test code 100 mmol/L 98-107 = 65426342) TCO2 POC (test code = 17 mmol/L 21-32 L Physic aylin Notified 87205077) Urea Nitrogen POC (test 36 mg/dL 7-18 H code = 77865061) Glucose POC (test code = 114 mg/dL 74-106 H 93341863) Hemoglobin POC (test 11.9 g/dL 12-16 L code = 99840901) Hematocrit POC (test 35.0 % 37.0-47.0 L code = 12836309) Lab Interpretation (test Abnormal code = 22068-1) [facility] POC docked [id number] 13:48:46 Test Item Value Reference Range Interpretation Comments Sodium POC (test code = 126 mmol/L 136-145 L 12525778) Potassium POC (test code 4.4 mmol/L 3.5-5.1 = 05338827) Chloride POC (test code 100 mmol/L 98-107 = 76096549) TCO2 POC (test code = 17 mmol/L 21-32 L Physic aylin Notified 97820306) Urea Nitrogen POC (test 36 mg/dL 7-18 H code = 65989265) Glucose POC (test code = 114 mg/dL 74-106 H 85798909) Hemoglobin POC (test 11.9 g/dL 12-16 L code = 06212315) Hematocrit POC (test 35.0 % 37.0-47.0 L code = 57218833) Lab Interpretation (test Abnormal code = 36273-1) [facility] POC docked [id number] 13:48:46 Test Item Value Reference Range Interpretation Comments Sodium POC (test code = 126 mmol/L 136-145 L 99552352) Potassium POC (test code 4.4 mmol/L 3.5-5.1 = 25727966) Chloride POC (test code 100 mmol/L 98-107 = 55751473) TCO2 POC (test code = 17 mmol/L 21-32 L Physic aylin Notified 16328107) Urea Nitrogen POC (test 36 mg/dL 7-18 H code = 23076664) Glucose POC (test code = 114 mg/dL 74-106 H 68648222) Hemoglobin POC (test 11.9 g/dL 12-16 L code = 64973342) Hematocrit POC (test 35.0 % 37.0-47.0 L code = 65975341) Lab Interpretation (test Abnormal code = 73530-6) [facility] POC docked [id number] 13:48:46 Test Item Value Reference Range Interpretation Comments Sodium POC (test code = 126 mmol/L 136-145 L 02474820) Potassium POC (test code 4.4 mmol/L 3.5-5.1 = 81706874) Chloride POC (test code 100 mmol/L 98-107 = 39221750) TCO2 POC (test code = 17 mmol/L 21-32 L Physic aylin Notified 81062864) Urea Nitrogen POC (test 36 mg/dL 7-18 H code = 64732213) Glucose POC (test code = 114 mg/dL 74-106 H 73737630) Hemoglobin POC (test 11.9 g/dL 12-16 L code = 51597849) Hematocrit POC (test 35.0 % 37.0-47.0 L code = 99421687) Lab Interpretation (test Abnormal code = 84972-1) [facility] POC docked [id number] 13:48:46 Test Item Value Reference Range Interpretation Comments Sodium POC (test code = 126 mmol/L 136-145 L 74510797) Potassium POC (test code 4.4 mmol/L 3.5-5.1 = 09683693) Chloride POC (test code 100 mmol/L 98-107 = 44088799) TCO2 POC (test code = 17 mmol/L 21-32 L Physic aylin Notified 79957921) Urea Nitrogen POC (test 36 mg/dL 7-18 H code = 13660450) Glucose POC (test code = 114 mg/dL 74-106 H 28409213) Hemoglobin POC (test 11.9 g/dL 12-16 L code = 32014584) Hematocrit POC (test 35.0 % 37.0-47.0 L code = 55310412) Lab Interpretation (test Abnormal code = 14509-0) [facility] POC docked [id number] 13:48:46 Test Item Value Reference Range Interpretation Comments Sodium POC (test code = 126 mmol/L 136-145 L 73761905) Potassium POC (test code 4.4 mmol/L 3.5-5.1 = 19850277) Chloride POC (test code 100 mmol/L 98-107 = 47211651) TCO2 POC (test code = 17 mmol/L 21-32 L Physic aylin Notified 43747039) Urea Nitrogen POC (test 36 mg/dL 7-18 H code = 52956604) Glucose POC (test code = 114 mg/dL 74-106 H 49892492) Hemoglobin POC (test 11.9 g/dL 12-16 L code = 35530115) Hematocrit POC (test 35.0 % 37.0-47.0 L code = 56834291) Lab Interpretation (test Abnormal code = 40485-5) [facility] POC docked [id number] 13:48:46 Test Item Value Reference Range Interpretation Comments Sodium POC (test code = 126 mmol/L 136-145 L 18803214) Potassium POC (test code 4.4 mmol/L 3.5-5.1 = 54414307) Chloride POC (test code 100 mmol/L 98-107 = 84192401) TCO2 POC (test code = 17 mmol/L 21-32 L Physic aylin Notified 61484747) Urea Nitrogen POC (test 36 mg/dL 7-18 H code = 99357759) Glucose POC (test code = 114 mg/dL 74-106 H 27342365) Hemoglobin POC (test 11.9 g/dL 12-16 L code = 94787835) Hematocrit POC (test 35.0 % 37.0-47.0 L code = 36040305) Lab Interpretation (test Abnormal code = 06254-2) [facility] POC docked [id number] 13:48:46 Test Item Value Reference Range Interpretation Comments Sodium POC (test code = 126 mmol/L 136-145 L 96519339) Potassium POC (test code 4.4 mmol/L 3.5-5.1 = 61139907) Chloride POC (test code 100 mmol/L 98-107 = 59634019) TCO2 POC (test code = 17 mmol/L 21-32 L Physic aylin Notified 61497745) Urea Nitrogen POC (test 36 mg/dL 7-18 H code = 53175552) Glucose POC (test code = 114 mg/dL 74-106 H 66653502) Hemoglobin POC (test 11.9 g/dL 12-16 L code = 76443400) Hematocrit POC (test 35.0 % 37.0-47.0 L code = 69399927) Lab Interpretation (test Abnormal code = 40105-5) [facility] POC docked [id number] 13:48:46 Test Item Value Reference Range Interpretation Comments Sodium POC (test code = 126 mmol/L 136-145 L 73754221) Potassium POC (test code 4.4 mmol/L 3.5-5.1 = 20399671) Chloride POC (test code 100 mmol/L 98-107 = 25446564) TCO2 POC (test code = 17 mmol/L 21-32 L Physic aylin Notified 18657597) Urea Nitrogen POC (test 36 mg/dL 7-18 H code = 73194952) Glucose POC (test code = 114 mg/dL 74-106 H 66512928) Hemoglobin POC (test 11.9 g/dL 12-16 L code = 90623266) Hematocrit POC (test 35.0 % 37.0-47.0 L code = 60039897) Lab Interpretation (test Abnormal code = 08581-8) [facility] POC docked [id number] 13:48:46 Test Item Value Reference Range Interpretation Comments Sodium POC (test code = 126 mmol/L 136-145 L 01101171) Potassium POC (test code 4.4 mmol/L 3.5-5.1 = 26855324) Chloride POC (test code 100 mmol/L 98-107 = 01000680) TCO2 POC (test code = 17 mmol/L 21-32 L Physic aylin Notified 10751823) Urea Nitrogen POC (test 36 mg/dL 7-18 H code = 89203386) Glucose POC (test code = 114 mg/dL 74-106 H 65650964) Hemoglobin POC (test 11.9 g/dL 12-16 L code = 71909832) Hematocrit POC (test 35.0 % 37.0-47.0 L code = 13511564) Lab Interpretation (test Abnormal code = 30403-2) [facility] POC docked [id number] 13:48:46 Test Item Value Reference Range Interpretation Comments Sodium POC (test code = 126 mmol/L 136-145 L 30153039) Potassium POC (test code 4.4 mmol/L 3.5-5.1 = 72487265) Chloride POC (test code 100 mmol/L 98-107 = 77812612) TCO2 POC (test code = 17 mmol/L 21-32 L Physic aylin Notified 87261242) Urea Nitrogen POC (test 36 mg/dL 7-18 H code = 89681133) Glucose POC (test code = 114 mg/dL 74-106 H 55634135) Hemoglobin POC (test 11.9 g/dL 12-16 L code = 11163001) Hematocrit POC (test 35.0 % 37.0-47.0 L code = 00893729) Lab Interpretation (test Abnormal code = 07226-6) [facility] POC docked [id number] 13:48:46 Test Item Value Reference Range Interpretation Comments Sodium POC (test code = 126 mmol/L 136-145 L 16177352) Potassium POC (test code 4.4 mmol/L 3.5-5.1 = 52994863) Chloride POC (test code 100 mmol/L 98-107 = 85639716) TCO2 POC (test code = 17 mmol/L 21-32 L Physic aylin Notified 59438340) Urea Nitrogen POC (test 36 mg/dL 7-18 H code = 18764893) Glucose POC (test code = 114 mg/dL 74-106 H 68647624) Hemoglobin POC (test 11.9 g/dL 12-16 L code = 68117960) Hematocrit POC (test 35.0 % 37.0-47.0 L code = 96807234) Lab Interpretation (test Abnormal code = 13753-0) [facility] POC docked [id number] 13:48:46 Test Item Value Reference Range Interpretation Comments Sodium POC (test code = 126 mmol/L 136-145 L 51180151) Potassium POC (test code 4.4 mmol/L 3.5-5.1 = 92153955) Chloride POC (test code 100 mmol/L 98-107 = 53708024) TCO2 POC (test code = 17 mmol/L 21-32 L Physic aylin Notified 55595371) Urea Nitrogen POC (test 36 mg/dL 7-18 H code = 41983508) Glucose POC (test code = 114 mg/dL 74-106 H 98748167) Hemoglobin POC (test 11.9 g/dL 12-16 L code = 92126218) Hematocrit POC (test 35.0 % 37.0-47.0 L code = 89614849) Lab Interpretation (test Abnormal code = 18336-7) [facility] POC docked [id number] 13:48:46 Test Item Value Reference Range Interpretation Comments Sodium POC (test code = 126 mmol/L 136-145 L 15997099) Potassium POC (test code 4.4 mmol/L 3.5-5.1 = 37011526) Chloride POC (test code 100 mmol/L 98-107 = 93536363) TCO2 POC (test code = 17 mmol/L 21-32 L Physic aylin Notified 66074278) Urea Nitrogen POC (test 36 mg/dL 7-18 H code = 72458429) Glucose POC (test code = 114 mg/dL 74-106 H 72903984) Hemoglobin POC (test 11.9 g/dL 12-16 L code = 23423129) Hematocrit POC (test 35.0 % 37.0-47.0 L code = 29186161) Lab Interpretation (test Abnormal code = 29899-4) [facility] POC docked [id number] 13:48:46 Test Item Value Reference Range Interpretation Comments Sodium POC (test code = 126 mmol/L 136-145 L 22817874) Potassium POC (test code 4.4 mmol/L 3.5-5.1 = 26575166) Chloride POC (test code 100 mmol/L 98-107 = 40300631) TCO2 POC (test code = 17 mmol/L 21-32 L Physic aylin Notified 81976547) Urea Nitrogen POC (test 36 mg/dL 7-18 H code = 82598630) Glucose POC (test code = 114 mg/dL 74-106 H 35332507) Hemoglobin POC (test 11.9 g/dL 12-16 L code = 83478685) Hematocrit POC (test 35.0 % 37.0-47.0 L code = 74132541) Lab Interpretation (test Abnormal code = 67375-3) [facility] POC docked [id number] 13:48:46 Test Item Value Reference Range Interpretation Comments Sodium POC (test code = 126 mmol/L 136-145 L 24070314) Potassium POC (test code 4.4 mmol/L 3.5-5.1 = 89053672) Chloride POC (test code 100 mmol/L 98-107 = 75739838) TCO2 POC (test code = 17 mmol/L 21-32 L Physic aylin Notified 83451370) Urea Nitrogen POC (test 36 mg/dL 7-18 H code = 15864179) Glucose POC (test code = 114 mg/dL 74-106 H 18818668) Hemoglobin POC (test 11.9 g/dL 12-16 L code = 40530680) Hematocrit POC (test 35.0 % 37.0-47.0 L code = 68786372) Lab Interpretation (test Abnormal code = 57628-7) [facility] POC docked [id number] 13:48:46 Test Item Value Reference Range Interpretation Comments Sodium POC (test code = 126 mmol/L 136-145 L 13256855) Potassium POC (test code 4.4 mmol/L 3.5-5.1 = 74564732) Chloride POC (test code 100 mmol/L 98-107 = 76180252) TCO2 POC (test code = 17 mmol/L 21-32 L Physic aylin Notified 08148932) Urea Nitrogen POC (test 36 mg/dL 7-18 H code = 10975232) Glucose POC (test code = 114 mg/dL 74-106 H 97024981) Hemoglobin POC (test 11.9 g/dL 12-16 L code = 92682678) Hematocrit POC (test 35.0 % 37.0-47.0 L code = 35646032) Lab Interpretation (test Abnormal code = 33607-9) [facility] POC docked [id number] 13:48:46 Test Item Value Reference Range Interpretation Comments Sodium POC (test code = 126 mmol/L 136-145 L 77025066) Potassium POC (test code 4.4 mmol/L 3.5-5.1 = 43578747) Chloride POC (test code 100 mmol/L 98-107 = 00067956) TCO2 POC (test code = 17 mmol/L 21-32 L Physic aylin Notified 06178096) Urea Nitrogen POC (test 36 mg/dL 7-18 H code = 82257098) Glucose POC (test code = 114 mg/dL 74-106 H 60032782) Hemoglobin POC (test 11.9 g/dL 12-16 L code = 02966841) Hematocrit POC (test 35.0 % 37.0-47.0 L code = 26417876) Lab Interpretation (test Abnormal code = 76653-8) [facility]-CoV-2 ORF1ab Resp Ql OLENA+[id number] 20:25:16 Test Item Value Reference Range Interpretation Comments Hospitalized? (test No code = 19725-3) ICU? (test code = No 72560-2) Symptomatic as No defined by CDC? (test code = 28510-8) Employed in No Healthcare? (test code = 59804-9) Resident in a No congregate care setting (including nursing homes, residential care for people with intellectual and developmental disabilities, psychiatric treatment facilities, group homes, board and care homes, homeless penitentiary, foster care or other): (test code = 72816-9) SARS-CoV-2 ORF1ab NOT DETECTED Not Detected INTERPRETA TION: No Resp Ql OLENA+probe detectable levels of (test code = SARS-CoV-2 15551-6) Coronavirus (COVID-19) were present in this patient's [...] SARS-CoV-2 mole cular diagnostic assa y utilizes [employer] Mediated Amplification ( TMA) technology to r apidly detect the SARS -CoV-2 (COVID-19) viru s from respiratory adriana ples. In accordance with\\XC2A0\\the FDA's guidance docume nt "Policy for Diagnostic Test s for Coronavirus Disease-2019 du ring the Public Heal th Emergency", ginger s test was developed, and its performance characteristics were verified by the [facility] molecular diagn ostics laboratory and is authorized for clinical diagno stic use. \\XC2A0\\Ginger s laboratory is certified under the Clinical Labora tory Improvement Amendments (CLI A) as qualified to pe rform high complexity clinical labora tory testing. [facility] POC docked [id number] 11:16:15 Test Item Value Reference Range Interpretation Comments pH, Pankaj POC (test code 7.32 7.33-7.43 L = 36572881) pCO2,Pankaj POC (test code 31.0 See_Comment L [Au tomated = 89294208) message] The sy stem which generated this result transmitted reference range : 38 - 50 mmHg. The reference range was not used to interpret this result as normal/abnormal . PO2, Venous POC (BKR) 44 See_Comment L [Auto mated (test code = 14469306) messa ge] The system which generated this result transmitted reference range : 50 - 75 mm Hg. The reference range was not used to interpret this result as normal/abnormal . Ionized Calcium POC 1.24 mmol/L 1.15-1.29 (test code = 95250095) HCO3, Pankaj POC (test 16 mmol/L 22-26 L code = 70659669) TCO2 POC (test code = 17 mmol/L 21-32 L 14318852) Base Deficit, Pankaj POC -9 (test code = 35221298) Sample Type (test code IVEN Physi erik Notified = 35618348) % Sat, Pankaj POC (test 77 % code = 13185009) Lab Interpretation Abnormal (test code = 58209-6) [facility] POC docked [id number] 11:16:15 Test Item Value Reference Range Interpretation Comments pH, Pankaj POC (test code 7.32 7.33-7.43 L = 93054650) pCO2,Pankaj POC (test code 31.0 See_Comment L [Au tomated = 63843380) message] The sy stem which generated this result transmitted reference range : 38 - 50 mmHg. The reference range was not used to interpret this result as normal/abnormal . PO2, Venous POC (BKR) 44 See_Comment L [Auto mated (test code = 35286267) SMSA CRANE ACQUISITIONa ge] The system which generated this result transmitted reference range : 50 - 75 mm Hg. The reference range was not used to interpret this result as normal/abnormal . Ionized Calcium POC 1.24 mmol/L 1.15-1.29 (test code = 96516750) HCO3, Pankaj POC (test 16 mmol/L 22-26 L code = 98394944) TCO2 POC (test code = 17 mmol/L 21-32 L 51411875) Base Deficit, Pankaj POC -9 (test code = 22986371) Sample Type (test code STEPAN Physi erik Notified = 84796091) % Sat, Pankaj POC (test 77 % code = 68749999) Lab Interpretation Abnormal (test code = 22766-6) [facility] POC docked [id number] 11:16:15 Test Item Value Reference Range Interpretation Comments pH, Pankaj POC (test code 7.32 7.33-7.43 L = 92707607) pCO2,Pankaj POC (test code 31.0 See_Comment L [Au tomated = 62955223) message] The sy stem which generated this result transmitted reference range : 38 - 50 mmHg. The reference range was not used to interpret this result as normal/abnormal . PO2, Venous POC (BKR) 44 See_Comment L [Auto mated (test code = 28946116) messa ge] The system which generated this result transmitted reference range : 50 - 75 mm Hg. The reference range was not used to interpret this result as normal/abnormal . Ionized Calcium POC 1.24 mmol/L 1.15-1.29 (test code = 35151541) HCO3, Pankaj POC (test 16 mmol/L 22-26 L code = 87182738) TCO2 POC (test code = 17 mmol/L 21-32 L 85432905) Base Deficit, Pankaj POC -9 (test code = 68001978) Sample Type (test code STEPAN valencia Notified = 66488564) % Sat, Pankaj POC (test 77 % code = 83609349) Lab Interpretation Abnormal (test code = 86168-1) [facility] POC docked [id number] 11:16:15 Test Item Value Reference Range Interpretation Comments pH, Pankaj POC (test code 7.32 7.33-7.43 L = 28063384) pCO2,Pankaj POC (test code 31.0 See_Comment L [Au tomated = 98244852) message] The sy stem which generated this result transmitted reference range : 38 - 50 mmHg. The reference range was not used to interpret this result as normal/abnormal . PO2, Venous POC (BKR) 44 See_Comment L [Auto mated (test code = 86118310) messa ge] The system which generated this result transmitted reference range : 50 - 75 mm Hg. The reference range was not used to interpret this result as normal/abnormal . Ionized Calcium POC 1.24 mmol/L 1.15-1.29 (test code = 08905962) HCO3, Pankaj POC (test 16 mmol/L 22-26 L code = 50817868) TCO2 POC (test code = 17 mmol/L 21-32 L 77428859) Base Deficit, Pankaj POC -9 (test code = 46967526) Sample Type (test code STEPAN valencia Notified = 29144734) % Sat, Pankaj POC (test 77 % code = 57450031) Lab Interpretation Abnormal (test code = 27968-2) [facility] POC docked [id number] 11:16:15 Test Item Value Reference Range Interpretation Comments pH, Pankaj POC (test code 7.32 7.33-7.43 L = 00707698) pCO2,Pankaj POC (test code 31.0 See_Comment L [Au tomated = 99902638) message] The sy stem which generated this result transmitted reference range : 38 - 50 mmHg. The reference range was not used to interpret this result as normal/abnormal . PO2, Venous POC (BKR) 44 See_Comment L [Auto mated (test code = 37644926) messa ge] The system which generated this result transmitted reference range : 50 - 75 mm Hg. The reference range was not used to interpret this result as normal/abnormal . Ionized Calcium POC 1.24 mmol/L 1.15-1.29 (test code = 75053410) HCO3, Pankaj POC (test 16 mmol/L 22-26 L code = 07995721) TCO2 POC (test code = 17 mmol/L 21-32 L 34499136) Base Deficit, Pankaj POC -9 (test code = 37999645) Sample Type (test code IVFLORENCE Physi erik Notified = 38386107) % Sat, Pankaj POC (test 77 % code = 35457433) Lab Interpretation Abnormal (test code = 46556-8) [facility] POC docked [id number] 11:16:15 Test Item Value Reference Range Interpretation Comments pH, Pankaj POC (test code 7.32 7.33-7.43 L = 31953563) pCO2,Pankaj POC (test code 31.0 See_Comment L [Au tomated = 22856077) message] The sy stem which generated this result transmitted reference range : 38 - 50 mmHg. The reference range was not used to interpret this result as normal/abnormal . PO2, Venous POC (BKR) 44 See_Comment L [Auto mated (test code = 15714677) SMSA CRANE ACQUISITIONa ge] The system which generated this result transmitted reference range : 50 - 75 mm Hg. The reference range was not used to interpret this result as normal/abnormal . Ionized Calcium POC 1.24 mmol/L 1.15-1.29 (test code = 16266340) HCO3, Pankaj POC (test 16 mmol/L 22-26 L code = 82400017) TCO2 POC (test code = 17 mmol/L 21-32 L 85018026) Base Deficit, Pankaj POC -9 (test code = 75763123) Sample Type (test code IVFLORENCE Physi erik Notified = 19277171) % Sat, Pankaj POC (test 77 % code = 02387776) Lab Interpretation Abnormal (test code = 62957-8) [facility] POC docked [id number] 11:16:15 Test Item Value Reference Range Interpretation Comments pH, Pankaj POC (test code 7.32 7.33-7.43 L = 21561585) pCO2,Pankaj POC (test code 31.0 See_Comment L [Au tomated = 56752441) message] The sy stem which generated this result transmitted reference range : 38 - 50 mmHg. The reference range was not used to interpret this result as normal/abnormal . PO2, Venous POC (BKR) 44 See_Comment L [Auto mated (test code = 88428565) SMSA CRANE ACQUISITIONa ge] The system which generated this result transmitted reference range : 50 - 75 mm Hg. The reference range was not used to interpret this result as normal/abnormal . Ionized Calcium POC 1.24 mmol/L 1.15-1.29 (test code = 95789073) HCO3, Pankaj POC (test 16 mmol/L 22-26 L code = 12956239) TCO2 POC (test code = 17 mmol/L 21-32 L 09310607) Base Deficit, Pankaj POC -9 (test code = 70758786) Sample Type (test code IVEN Physi erik Notified = 30987546) % Sat, Pankaj POC (test 77 % code = 73188488) Lab Interpretation Abnormal (test code = 79244-2) [facility] POC docked [id number] 11:16:15 Test Item Value Reference Range Interpretation Comments pH, Pankaj POC (test code 7.32 7.33-7.43 L = 01996375) pCO2,Pankaj POC (test code 31.0 See_Comment L [Au tomated = 34930549) message] The sy stem which generated this result transmitted reference range : 38 - 50 mmHg. The reference range was not used to interpret this result as normal/abnormal . PO2, Venous POC (BKR) 44 See_Comment L [Auto mated (test code = 75331294) SMSA CRANE ACQUISITIONa [employer]] The system which generated this result transmitted reference range : 50 - 75 mm Hg. The reference range was not used to interpret this result as normal/abnormal . Ionized Calcium POC 1.24 mmol/L 1.15-1.29 (test code = 79770055) HCO3, Pankaj POC (test 16 mmol/L 22-26 L code = 86076905) TCO2 POC (test code = 17 mmol/L 21-32 L 54661819) Base Deficit, Pankaj POC -9 (test code = 38592183) Sample Type (test code IVEN Physi erik Notified = 30268117) % Sat, Pankaj POC (test 77 % code = 15363840) Lab Interpretation Abnormal (test code = 46663-2) [facility] POC docked [id number] 11:16:15 Test Item Value Reference Range Interpretation Comments pH, Pankaj POC (test code 7.32 7.33-7.43 L = 38164856) pCO2,Pankaj POC (test code 31.0 See_Comment L [Au tomated = 38450978) message] The sy stem which generated this result transmitted reference range : 38 - 50 mmHg. The reference range was not used to interpret this result as normal/abnormal . PO2, Venous POC (BKR) 44 See_Comment L [Auto mated (test code = 13962206) SMSA CRANE ACQUISITIONa ge] The system which generated this result transmitted reference range : 50 - 75 mm Hg. The reference range was not used to interpret this result as normal/abnormal . Ionized Calcium POC 1.24 mmol/L 1.15-1.29 (test code = 62852612) HCO3, Pankaj POC (test 16 mmol/L 22-26 L code = 14770104) TCO2 POC (test code = 17 mmol/L 21-32 L 22721106) Base Deficit, Pankaj POC -9 (test code = 60160684) Sample Type (test code STEPAN Physi erik Notified = 48028836) % Sat, Pankaj POC (test 77 % code = 01728517) Lab Interpretation Abnormal (test code = 56501-4) [facility] POC docked [id number] 11:16:15 Test Item Value Reference Range Interpretation Comments pH, Pankaj POC (test code 7.32 7.33-7.43 L = 04868199) pCO2,Pankaj POC (test code 31.0 See_Comment L [Au tomated = 60991225) message] The sy stem which generated this result transmitted reference range : 38 - 50 mmHg. The reference range was not used to interpret this result as normal/abnormal . PO2, Venous POC (BKR) 44 See_Comment L [Auto mated (test code = 64837826) SMSA CRANE ACQUISITIONa ge] The system which generated this result transmitted reference range : 50 - 75 mm Hg. The reference range was not used to interpret this result as normal/abnormal . Ionized Calcium POC 1.24 mmol/L 1.15-1.29 (test code = 97506459) HCO3, Pankaj POC (test 16 mmol/L 22-26 L code = 96162913) TCO2 POC (test code = 17 mmol/L 21-32 L 00996961) Base Deficit, Pankaj POC -9 (test code = 62970739) Sample Type (test code STEPAN valencia Notified = 97037407) % Sat, Pankaj POC (test 77 % code = 85295549) Lab Interpretation Abnormal (test code = 62010-4) [facility] POC docked [id number] 11:16:15 Test Item Value Reference Range Interpretation Comments pH, Pankaj POC (test code 7.32 7.33-7.43 L = 76136138) pCO2,Pankaj POC (test code 31.0 See_Comment L [Au tomated = 86030455) message] The sy stem which generated this result transmitted reference range : 38 - 50 mmHg. The reference range was not used to interpret this result as normal/abnormal . PO2, Venous POC (BKR) 44 See_Comment L [Auto mated (test code = 46267373) messa ge] The system which generated this result transmitted reference range : 50 - 75 mm Hg. The reference range was not used to interpret this result as normal/abnormal . Ionized Calcium POC 1.24 mmol/L 1.15-1.29 (test code = 68195752) HCO3, Pankaj POC (test 16 mmol/L 22-26 L code = 95755042) TCO2 POC (test code = 17 mmol/L 21-32 L 05571165) Base Deficit, Pankaj POC -9 (test code = 92752416) Sample Type (test code STEPAN valencia Notified = 17984202) % Sat, Pankaj POC (test 77 % code = 85875099) Lab Interpretation Abnormal (test code = 74027-7) [facility] POC docked [id number] 11:16:15 Test Item Value Reference Range Interpretation Comments pH, Pankaj POC (test code 7.32 7.33-7.43 L = 53069654) pCO2,Pankaj POC (test code 31.0 See_Comment L [Au tomated = 22126156) message] The sy stem which generated this result transmitted reference range : 38 - 50 mmHg. The reference range was not used to interpret this result as normal/abnormal . PO2, Venous POC (BKR) 44 See_Comment L [Auto mated (test code = 98437489) messa ge] The system which generated this result transmitted reference range : 50 - 75 mm Hg. The reference range was not used to interpret this result as normal/abnormal . Ionized Calcium POC 1.24 mmol/L 1.15-1.29 (test code = 01442963) HCO3, Pankaj POC (test 16 mmol/L 22-26 L code = 56832591) TCO2 POC (test code = 17 mmol/L 21-32 L 97916299) Base Deficit, Pankaj POC -9 (test code = 25157209) Sample Type (test code IVFLORENCE Physi erik Notified = 78258952) % Sat, Pankaj POC (test 77 % code = 65268733) Lab Interpretation Abnormal (test code = 78015-0) [facility] POC docked [id number] 11:16:15 Test Item Value Reference Range Interpretation Comments pH, Pankaj POC (test code 7.32 7.33-7.43 L = 97071405) pCO2,Pankaj POC (test code 31.0 See_Comment L [Au tomated = 08430289) message] The sy stem which generated this result transmitted reference range : 38 - 50 mmHg. The reference range was not used to interpret this result as normal/abnormal . PO2, Venous POC (BKR) 44 See_Comment L [Auto mated (test code = 99018595) [employer]] The system which generated this result transmitted reference range : 50 - 75 mm Hg. The reference range was not used to interpret this result as normal/abnormal . Ionized Calcium POC 1.24 mmol/L 1.15-1.29 (test code = 26462171) HCO3, Pankaj POC (test 16 mmol/L 22-26 L code = 46592819) TCO2 POC (test code = 17 mmol/L 21-32 L 94919150) Base Deficit, Pankaj POC -9 (test code = 11340649) Sample Type (test code IVEN Physi erik Notified = 05206995) % Sat, Pankaj POC (test 77 % code = 06910367) Lab Interpretation Abnormal (test code = 14028-1) [facility] POC docked [id number] 11:16:15 Test Item Value Reference Range Interpretation Comments pH, Pankaj POC (test code 7.32 7.33-7.43 L = 68799871) pCO2,Pankaj POC (test code 31.0 See_Comment L [Au tomated = 01983914) message] The sy stem which generated this result transmitted reference range : 38 - 50 mmHg. The reference range was not used to interpret this result as normal/abnormal . PO2, Venous POC (BKR) 44 See_Comment L [Auto mated (test code = 88332599) messa ge] The system which generated this result transmitted reference range : 50 - 75 mm Hg. The reference range was not used to interpret this result as normal/abnormal . Ionized Calcium POC 1.24 mmol/L 1.15-1.29 (test code = 51697334) HCO3, Pankaj POC (test 16 mmol/L 22-26 L code = 26917866) TCO2 POC (test code = 17 mmol/L 21-32 L 73139535) Base Deficit, Pankaj POC -9 (test code = 72320048) Sample Type (test code IVEN Physi erik Notified = 08104862) % Sat, Pankaj POC (test 77 % code = 74931476) Lab Interpretation Abnormal (test code = 07833-3) [facility] VBG POC docked [id number] 11:16:15 Test Item Value Reference Range Interpretation Comments pH, Pankaj POC (test code 7.32 7.33-7.43 L = 00700815) pCO2,Pankaj POC (test code 31.0 See_Comment L [Au tomated = 47803761) message] The sy stem which generated this result transmitted reference range : 38 - 50 mmHg. The reference range was not used to interpret this result as normal/abnormal . PO2, Venous POC (BKR) 44 See_Comment L [Auto mated (test code = 92741453) messa ge] The system which generated this result transmitted reference range : 50 - 75 mm Hg. The reference range was not used to interpret this result as normal/abnormal . Ionized Calcium POC 1.24 mmol/L 1.15-1.29 (test code = 73033880) HCO3, Pankaj POC (test 16 mmol/L 22-26 L code = 48664590) TCO2 POC (test code = 17 mmol/L 21-32 L 76808495) Base Deficit, Pankaj POC -9 (test code = 34534703) Sample Type (test code IVEN Physi erik Notified = 55234424) % Sat, Pankaj POC (test 77 % code = 32364188) Lab Interpretation Abnormal (test code = 59168-2) [facility] VB POC docked [id number] 11:16:15 Test Item Value Reference Range Interpretation Comments pH, Pankaj POC (test code 7.32 7.33-7.43 L = 72942965) pCO2,Pankaj POC (test code 31.0 See_Comment L [Au tomated = 13488487) message] The sy stem which generated this result transmitted reference range : 38 - 50 mmHg. The reference range was not used to interpret this result as normal/abnormal . PO2, Venous POC (BKR) 44 See_Comment L [Auto mated (test code = 27539347) messa ge] The system which generated this result transmitted reference range : 50 - 75 mm Hg. The reference range was not used to interpret this result as normal/abnormal . Ionized Calcium POC 1.24 mmol/L 1.15-1.29 (test code = 44751041) HCO3, Pankaj POC (test 16 mmol/L 22-26 L code = 84314493) TCO2 POC (test code = 17 mmol/L 21-32 L 49252613) Base Deficit, Pankaj POC -9 (test code = 81553726) Sample Type (test code IVFLORENCE Physi erik Notified = 03897227) % Sat, Pankaj POC (test 77 % code = 89664718) Lab Interpretation Abnormal (test code = 50909-3) [facility] POC docked [id number] 11:16:15 Test Item Value Reference Range Interpretation Comments pH, Pankaj POC (test code 7.32 7.33-7.43 L = 47339823) pCO2,Pankaj POC (test code 31.0 See_Comment L [Au tomated = 71808419) message] The sy stem which generated this result transmitted reference range : 38 - 50 mmHg. The reference range was not used to interpret this result as normal/abnormal . PO2, Venous POC (BKR) 44 See_Comment L [Auto mated (test code = 85372522) messa ge] The system which generated this result transmitted reference range : 50 - 75 mm Hg. The reference range was not used to interpret this result as normal/abnormal . Ionized Calcium POC 1.24 mmol/L 1.15-1.29 (test code = 56917360) HCO3, Pankaj POC (test 16 mmol/L 22-26 L code = 65998289) TCO2 POC (test code = 17 mmol/L 21-32 L 41804382) Base Deficit, Pankaj POC -9 (test code = 89235378) Sample Type (test code STEPAN valencia Notified = 72455953) % Sat, Pankaj POC (test 77 % code = 58541714) Lab Interpretation Abnormal (test code = 61354-3) [facility] VBG POC docked [id number] 11:16:15 Test Item Value Reference Range Interpretation Comments pH, Pankaj POC (test code 7.32 7.33-7.43 L = 39045720) pCO2,Pankaj POC (test code 31.0 See_Comment L [Au tomated = 91324595) message] The sy stem which generated this result transmitted reference range : 38 - 50 mmHg. The reference range was not used to interpret this result as normal/abnormal . PO2, Venous POC (BKR) 44 See_Comment L [Auto mated (test code = 47910137) Gezlong] The system which generated this result transmitted reference range : 50 - 75 mm Hg. The reference range was not used to interpret this result as normal/abnormal . Ionized Calcium POC 1.24 mmol/L 1.15-1.29 (test code = 29520590) HCO3, Pankaj POC (test 16 mmol/L 22-26 L code = 50062301) TCO2 POC (test code = 17 mmol/L 21-32 L 05733218) Base Deficit, Pankaj POC -9 (test code = 27302450) Sample Type (test code STEPAN valencia Notified = 04567801) % Sat, Pankaj POC (test 77 % code = 85611009) Lab Interpretation Abnormal (test code = 24737-5) [facility] VBG POC docked [id number] 11:16:15 Test Item Value Reference Range Interpretation Comments pH, Pankaj POC (test code 7.32 7.33-7.43 L = 91283222) pCO2,Pankaj POC (test code 31.0 See_Comment L [Au tomated = 55472498) message] The sy stem which generated this result transmitted reference range : 38 - 50 mmHg. The reference range was not used to interpret this result as normal/abnormal . PO2, Venous POC (BKR) 44 See_Comment L [Auto mated (test code = 72841558) Gezlong] The system which generated this result transmitted reference range : 50 - 75 mm Hg. The reference range was not used to interpret this result as normal/abnormal . Ionized Calcium POC 1.24 mmol/L 1.15-1.29 (test code = 66021152) HCO3, Pankaj POC (test 16 mmol/L 22-26 L code = 34262363) TCO2 POC (test code = 17 mmol/L 21-32 L 22740450) Base Deficit, Pankaj POC -9 (test code = 68573167) Sample Type (test code IVEN Physi erik Notified = 97013463) % Sat, Pankaj POC (test 77 % code = 53145027) Lab Interpretation Abnormal (test code = 36708-2) [facility] VBG POC docked [id number] 11:16:15 Test Item Value Reference Range Interpretation Comments pH, Pankaj POC (test code 7.32 7.33-7.43 L = 91040765) pCO2,Pankaj POC (test code 31.0 See_Comment L [Au tomated = 89718513) message] The sy stem which generated this result transmitted reference range : 38 - 50 mmHg. The reference range was not used to interpret this result as normal/abnormal . PO2, Venous POC (BKR) 44 See_Comment L [Auto mated (test code = 14023456) Gezlong] The system which generated this result transmitted reference range : 50 - 75 mm Hg. The reference range was not used to interpret this result as normal/abnormal . Ionized Calcium POC 1.24 mmol/L 1.15-1.29 (test code = 11150706) HCO3, Pankaj POC (test 16 mmol/L 22-26 L code = 66749442) TCO2 POC (test code = 17 mmol/L 21-32 L 43510911) Base Deficit, Pankaj POC -9 (test code = 01196120) Sample Type (test code IVEN Physi erik Notified = 05569103) % Sat, Pankaj POC (test 77 % code = 01630569) Lab Interpretation Abnormal (test code = 62093-5) [facility] VBG POC docked [id number] 11:16:15 Test Item Value Reference Range Interpretation Comments pH, Pankaj POC (test code 7.32 7.33-7.43 L = 05650572) pCO2,Pankaj POC (test code 31.0 See_Comment L [Au tomated = 14708963) message] The sy stem which generated this result transmitted reference range : 38 - 50 mmHg. The reference range was not used to interpret this result as normal/abnormal . PO2, Venous POC (BKR) 44 See_Comment L [Auto mated (test code = 68218035) messa ge] The system which generated this result transmitted reference range : 50 - 75 mm Hg. The reference range was not used to interpret this result as normal/abnormal . Ionized Calcium POC 1.24 mmol/L 1.15-1.29 (test code = 90400673) HCO3, Pankaj POC (test 16 mmol/L 22-26 L code = 68998959) TCO2 POC (test code = 17 mmol/L 21-32 L 44072100) Base Deficit, Pankaj POC -9 (test code = 91684181) Sample Type (test code IVEN Physi erik Notified = 04302995) % Sat, Pankaj POC (test 77 % code = 94000958) Lab Interpretation Abnormal (test code = 04890-9) [facility] VBG POC docked [id number] 11:16:15 Test Item Value Reference Range Interpretation Comments pH, Pankaj POC (test code 7.32 7.33-7.43 L = 12019258) pCO2,Pankaj POC (test code 31.0 See_Comment L [Au tomated = 88112098) message] The sy stem which generated this result transmitted reference range : 38 - 50 mmHg. The reference range was not used to interpret this result as normal/abnormal . PO2, Venous POC (BKR) 44 See_Comment L [Auto mated (test code = 22612180) messa ge] The system which generated this result transmitted reference range : 50 - 75 mm Hg. The reference range was not used to interpret this result as normal/abnormal . Ionized Calcium POC 1.24 mmol/L 1.15-1.29 (test code = 03873321) HCO3, Pankaj POC (test 16 mmol/L 22-26 L code = 81862818) TCO2 POC (test code = 17 mmol/L 21-32 L 39152646) Base Deficit, Pankaj POC -9 (test code = 69003186) Sample Type (test code IVEN Physi erik Notified = 20672592) % Sat, Pankaj POC (test 77 % code = 49460469) Lab Interpretation Abnormal (test code = 92217-2) [facility] VBG POC docked [id number] 11:16:15 Test Item Value Reference Range Interpretation Comments pH, Pankaj POC (test code 7.32 7.33-7.43 L = 90908555) pCO2,Pankaj POC (test code 31.0 See_Comment L [Au tomated = 62181089) message] The sy stem which generated this result transmitted reference range : 38 - 50 mmHg. The reference range was not used to interpret this result as normal/abnormal . PO2, Venous POC (BKR) 44 See_Comment L [Auto mated (test code = 88749158) messa ge] The system which generated this result transmitted reference range : 50 - 75 mm Hg. The reference range was not used to interpret this result as normal/abnormal . 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1970 Requested By: TANJA Garza Number: [id number] Lawson CAPONE: Chiara Calles MeasurementsIntervals [place] Rate: 75 P: 84PR: 153 QRS: 67QRSD: 104 T: 77QT: 344 QTc: 373 Interpretive StatementsSINUS RHYTHMPOSSIBLE RIGHT VENTRICULAR CONDUCTION DELAY [RSR (QR) IN V1/V2]Electronically Signed On 01-09-2022 8:27:19 CDT by [facility] [place]IESN[place] [address] LEAD [id number] 20:59:5612 LEAD EKG FOR [facility] Test Date: 3036-93-19Oyt Name: DORA JOSEPH Department: 5520Patient ID: [id number] 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: [id number]: 1970 Requested By: TANJA Garza Number: [id number] Reading MD: Chiara Calles MeasurementsIntervals [place] Rate: 75 P: 84PR: 153 QRS: 67QRSD: 104 T: 77QT: 344 QTc: 373 Interpretive StatementsSINUS RHYTHMPOSSIBLE RIGHT VENTRI CULAR CONDUCTION DELAY [RSR (QR) IN V1/V2]Electronically Signed On 01-09-2022 8:27:19 CDT by [facility] [place] [address] LEAD [id number] 20:59:5612 LEAD EKG FOR [facility] Test Date: 9562-41-46Cjz Name: DORA JOSEPH Department: 5520Patient ID: [id number] 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: [id number]: 1970 Requested By: TANJA Garza Number: [id number] Reading MD: Chiara Calles MeasurementsIntervals [place] Rate: 75 P: 84PR: 153 QRS: 67QRSD: 104 T: 77QT: 344 QTc: 373 Interpretive StatementsSINUS RHYTHMPOSSIBLE RIGHT VENTRICULAR CONDUCTION DELAY [RSR (QR) IN V1/V2]Electronically Signed On 01-09-2022 8:27:19 CDT by [facility] [place] [address] LEAD [id number] 20:59:5612 LEAD EKG FOR [facility] Test Date: 0672-30-31Isd Name: DORA PAEZRY Department: 5520Patient ID: [id number] 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: [id number]: 1970 Requested By: TANJA Garza Number: [id number] Reading MD: Chiara Calles MeasurementsIntervals [place] Rate: 75 P: 84PR: 153 QRS: 67QRSD: 104 T: 77QT: 344 QTc: 373 Interpretive StatementsSINUS RHYTHMPOSSIBLE RIGHT VENTRICULAR CONDUCTION DELAY [RSR (QR) IN V1/V2]Electronically Signed On 01-09-2022 8:27:19 CDT by [email or web address] LEAD [id number] 20:59:5612 LEAD EKG FOR [facility] Test Date: 3420-11-18Keh Name: DORA PAEZRY Department: 5520Patient ID: [id number] 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: [id number]: 1970 Requested By: TANJA Garza Number: [id number] Reading MD: Chiara Calles MeasurementsIntervals [place] Rate: 75 P: 84PR: 153 QRS: 67QRSD: 104 T: 77QT: 344 QTc: 373 Interpretive StatementsSINUS RHYTHMPOSSIBLE RIGHT VENTRICULAR CONDUCTION DELAY [RSR (QR) IN V1/V2]Electronically Signed On 01-09-2022 8:27:19 CDT by [facility] SystemC[facility] Group12 LEAD [id number] 20:59:5612 LEAD EKG FOR [facility] Test Date: 6123-05-15Jox Name: DORA PAEZRY Department: 5520Patient ID: [id number] 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: [id number]: 1970 Requested By: TANJA Garza Number: [id number] Reading MD: Chiara Calles MeasurementsIntervals [place] Rate: 75 P: 84PR: 153 QRS: 67QRSD: 104 T: 77QT: 344 QTc: 373 Interpretive StatementsSINUS RHYTHMPOSSIBLE RIGHT PANKAJ TRICULAR CONDUCTION DELAY [RSR (QR) IN V1/V2]Electronically Signed On 01-09-2022 8:27:19 CDT by [employer] LEAD [id number] 20:59:5612 LEAD EKG FOR [facility] Test Date: 8976-26-03Pqm Name: DORA PAEZRY Department: 5520Patient ID: [id number] 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: [id number]: 1970 Requested By: TANJA Garza Number: [id number] Reading MD: Chiara Calles MeasurementsIntervals [place] Rate: 75 P: 84PR: 153 QRS: 67QRSD: 104 T: 77QT: 344 QTc: 373 Interpretive StatementsSINUS RHYTHMPOSSIBLE RIGHT VENTRICULAR CONDUCTION DELAY [RSR (QR) IN V1/V2]Electronically Signed On 01-09-2022 8:27:19 CDT by [facility] Nvnwbk83 LEAD [id number] 20:59:5612 LEAD EKG FOR [facility] Test Date: 9587-97-64Mir Name: [facility] Department: 5520Patient ID: [id number] 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: [id number]: 1970 Requested By: TANJA Garza Number: [id number] Reading MD: Chiara Calles MeasurementsIntervals [place] Rate: 75 P: 84PR : 153 QRS: 67QRSD: 104 T: 77QT: 344 QTc: 373 Interpretive StatementsSINUS RHYTHMPOSSIBLE RIGHT VENTRICULAR CONDUCTION DELAY [RSR (QR) IN V1/V2]Electronically Signed On 01-09-2022 8:27:19 CDT by Chiara [facility] Marketsbakari3VRCompaColey Pharmaceutical Group12 LEAD [id number] 20:59:5612 LEAD EKG FOR [facility] Test Date: 2361-48-83Sup Name: [facility] Department: 5520Patient ID: [id number] 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: [id number]: 1970 Requested By: TANJA Garza Number: [id number] Reading MD: Chiara Calles MeasurementsIntervals [place] Rate: 75 P: 84PR: 153 QRS: 67QRSD: 104 T: 77QT: 344 QTc: 373 Interpretive StatementsSINUS RHYTHMPOSSIBLE RIGHT VENTRICULAR CONDUCTION DELAY [RSR (QR) IN V1/V2]Electronically Signed On 01-09-2022 8:27:19 CDT by Chiara [facility] Marketsbakari3VRCompaColey Pharmaceutical Group12 LEAD [id number] 20:59:5612 LEAD EKG FOR [facility] Test Date: 4833-78-73Bvt Name: [facility]: 5520Patient ID: [id number] 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: [id number]: 1970 Requested By: TANJA Garza Number: [id number] Reading MD: Chiara Calles MeasurementsIntervals [place] Rate: 75 P: 84PR: 153 QRS: 67QRSD: 104 T: 77QT: 344 QTc: 373 Interpretive StatementsSINUS RHYTHMPOSSIBLE RIGHT VENTR ICULAR CONDUCTION DELAY [RSR (QR) IN V1/V2]Electronically Signed On 01-09-2022 8:27:19 CDT by Chiara [facility] Markets[address]12 LEAD [id number] 20:59:5612 LEAD EKG FOR [facility] Test Date: 6337-30-23Mie Name: DORA JOSEPH Department: 5520Patient ID: [id number] 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: [id number]: 1970 Requested By: TANJA Garza Number: [id number] Reading MD: Chiara Calles MeasurementsIntervals [place] Rate: 75 P: 84PR: 153 QRS: 67QRSD: 104 T: 77QT: 344 QTc: 373 Interpretive StatementsSINUS RHYTHMPOSSIBLE RIGHT VENTRICULAR CONDUCTION DELAY [RSR (QR) IN V1/V2]Electronically Signed On 01-09-2022 8:27:19 CDT by [place] [employer] Technologyrobert Mission MarketsbakariRim[address]12 LEAD [id number] 20:59:5612 LEAD EKG FOR [facility] Test Date: 8201-64-40Krd Name: DORA PAEZRY Department: 5520Patient ID: [id number] 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: 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1970 Requested By: TANJA Garza Number: [id number] Reading MD: Chiara Calles MeasurementsIntervals [place] Rate: 75 P: 84PR : 153 QRS: 67QRSD: 104 T: 77QT: 344 QTc: 373 Interpretive StatementsSINUS RHYTHMPOSSIBLE RIGHT VENTRICULAR CONDUCTION DELAY [RSR (QR) IN V1/V2]Electronically Signed On 01-09-2022 8:27:19 CDT by [employer]12 LEAD [id number] 20:59:5612 LEAD EKG FOR [facility] Test Date: 5695-83-29Lkg Name: DORA JOSEPH Department: 5520Patient ID: [id number] 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: [id number]: 1970 Requested By: TANJA Garza Number: [id number] Reading MD: Chiara Calles MeasurementsIntervals [place] Rate: 75 P: 84PR: 153 QRS: 67QRSD: 104 T: 77QT: 344 QTc: 373 Interpretive StatementsSINUS RHYTHMPOSSIBLE RIGHT VENTRICULAR CONDUCTION DELAY [RSR (QR) IN V1/V2]Electronically Signed On 01-09-2022 8:27:19 CDT by [facility] HospitalPARCXMART TECHNOLOGIESValley Behavioral Health SystemIntelligent Energy [place] [address] LEAD [id number] 20:59:5612 LEAD EKG FOR [facility] Test Date: 1142-05-61Zke Name: DORA PAEZRY Department: 5520Patient ID: [id number] 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: [id number]: 1970 Requested By: TANJA Garza Number: [id number] Reading MD: Chiara Calles MeasurementsIntervals [place] Rate: 75 P: 84PR: 153 QRS: 67QRSD: 104 T: 77QT: 344 QTc: 373 Interpretive StatementsSINUS RHYTHMPOSSIBLE RIGHT VENT RICULAR CONDUCTION DELAY [RSR (QR) IN V1/V2]Electronically Signed On 01-09-2022 8:27:19 CDT by [facility] HospitalPARCXMART TECHNOLOGIESValley Behavioral Health SystemIntelligent Energy [place] [address] LEAD [id number] 20:59:5612 LEAD EKG FOR [facility] Test Date: 1910-78-11Efg Name: DORA PAEZRY Department: 5520Patient ID: [id number] 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: [id number]: 1970 Requested By: TANJA Garza Number: [id number] Reading MD: Chiara Calles MeasurementsIntervals [place] Rate: 75 P: 84PR: 153 QRS: 67QRSD: 104 T: 77QT: 344 QTc: 373 Interpretive StatementsSINUS RHYTHMPOSSIBLE RIGHT VENTRICULAR CONDUCTION DELAY [RSR (QR) IN V1/V2]Electronically Signed On 01-09-2022 8:27:19 CDT by [employer]12 LEAD [id number] 20:59:5612 LEAD EKG FOR [facility] Test Date: 5206-24-28Vos Name: DORA JOSEPH Department: 5520Patient ID: [id number] 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: [id number]: 1970 Requested By: TANJA Garza Number: [id number] Reading MD: Chiara Calles MeasurementsIntervals [place] Rate: 75 P: 84PR: 153 QRS: 67QRSD: 104 T: 77QT: 344 QTc: 373 Interpretive StatementsSINUS RHYTHMPOSSIBLE RIGHT VENTRICULAR CONDUCTION DELAY [RSR (QR) IN V1/V2]Electronically Signed On 01-09-2022 8:27:19 CDT by [facility] Qrjehf09 LEAD [id number] 20:59:5612 LEAD EKG FOR [facility] Test Date: 0017-85-53Tki Name: DORA PAEZRY Department: 5520Patient ID: [id number] 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: [id number]: 1970 Requested By: TANJA Garza Number: [id number] Reading MD: Chiara Calles MeasurementsIntervals [place] Rate: 75 P: 84PR: 153 QRS: 67QRSD: 104 T: 77QT: 344 QTc: 373 Interpretive StatementsSINUS RHYTHMPOSSIBLE RIGHT VENTRICULAR CONDUCTION DELAY [RSR (QR) IN V1/V2]Electronically Signed On 01-09-2022 8:27:19 CDT by WalrobertPARCXMART TECHNOLOGIESValley Behavioral Health SystemIntelligent Energy Sxeucq09 LEAD [id number] 20:59:5612 LEAD EKG FOR [facility] Test Date: 0785-65-11Tec Name: DORA JOSEPH Department: 5520Patient ID: [id number] 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: [id number]: 1970 Requested By: TANJA Garza Number: [id number] Reading MD: Chiara Calles MeasurementsIntervals [place] Rate: 75 P: 84PR: 153 QRS: 67QRSD: 104 T: 77QT: 344 QTc: 373 Interpretive StatementsSINUS RHYTHMPOSSIBLE RIGHT VENTR ICULAR CONDUCTION DELAY [RSR (QR) IN V1/V2]Electronically Signed On 01-09-2022 8:27:19 CDT by Chiara [facility]12 LEAD [id number] 20:59:5612 LEAD EKG FOR [facility] Test Date: 3165-77-14Dfw Name: DORA PAEZRY Department: 5520Patient ID: [id number] 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: [id number]: 1970 Requested By: TANJA Garza Number: [id number] Reading MD: Chiara Calles MeasurementsIntervals [place] Rate: 75 P: 84PR: 153 QRS: 67QRSD: 104 T: 77QT: 344 QTc: 373 Interpretive StatementsSINUS RHYTHMPOSSIBLE RIGHT VENTRICULAR CONDUCTION DELAY [RSR (QR) IN V1/V2]Electronically Signed On 01-09-2022 8:27:19 CDT by [facility]ro[facility] Marketsbakari3VRValley Behavioral Health SystemColey Pharmaceutical Group12 LEAD [id number] 20:59:5612 LEAD EKG FOR [facility] Test Date: 2366-88-28Gep Name: DORA PAEZRY Department: 5520Patient ID: [id number] 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: [id number]: 1970 Requested By: TANJA Garza Number: [id number] Reading MD: Chiara Calles MeasurementsIntervals [place] Rate: 75 P: 84PR: 153 QRS: 67QRSD: 104 T: 77QT: 344 QTc: 373 Interpretive StatementsSINUS RHYTHMPOSSIBLE RIGHT VENTRICULAR CONDUCTION DELAY [RSR (QR) IN V1/V2]Electronically Signed On 01-09-2022 8:27:19 CDT by [facility] HospitalHalotechnics12 LEAD [id number] 20:59:5612 LEAD EKG FOR [facility] Test Date: 9801-32-54Luz Name: DORA BALDWIN Department: 5520Patient ID: [id number] 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: [id number]: 1970 Requested By: TANJA Garza Number: [id number] Reading MD: Chiara Calles MeasurementsIntervals [place] Rate: 75 P: 84PR: 153 QRS: 67QRSD: 104 T: 77QT: 344 QTc: 373 Interpretive StatementsSINUS RHYTHMPOSSIBLE RIGHT VENTRICULAR CONDUCTION DELAY [RSR (QR) IN V1/V2]Electronically Signed On 01-09-2022 8:27:19 CDT by [place]ara [place]edaKevin [place] [address] LE[place] [id number] 20:59:5612 LEAD EKG FOR [facility] Test Date: 4810-50-50Gcv Name: DORA JOSEPH Department: 5520Patient ID: [id number] 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: [id number]: 1970 Requested By: TANJA Garza Number: [id number] Reading MD: Chiara Calles MeasurementsIntervals [place] Rate: 75 P: 84PR: 153 QRS: 67QRSD: 104 T: 77QT: 344 QTc: 373 Interpretive StatementsSINUS RHYTHMPOSSIBLE RIGHT VENT RICULAR CONDUCTION DELAY [RSR (QR) IN V1/V2]Electronically Signed On 01-09-2022 8:27:19 CDT by [place] [address] [place] [id number] 20:59:5612 LEAD EKG FOR [facility] Test Date: 1029-24-51Pcn Name: DORA JOSEPH Department: 5520Patient ID: [id number] 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: [id number]: 1970 Requested By: TANJA Garza Number: [id number] Reading MD: Chiara Calles MeasurementsIntervals [place] Rate: 75 P: 84PR: 153 QRS: 67QRSD: 104 T: 77QT: 344 QTc: 373 Interpretive StatementsSINUS RHYTHMPOSSIBLE RIGHT VENTRICULAR CONDUCTION DELAY [RSR (QR) IN V1/V2]Electronically Signed On 01-09-2022 8:27:19 CDT by [facility] W/AUTO [id number] 23:52:00 Test Item Value Reference Range Interpretation [...] = MX#) 0.8 k/mm3 0.1-0.8 N LIVER [id number] 20:04:00 Test Item Value Reference Range Interpretation Comments TOTAL PROTEIN (test code 6.7 GM/DL 5.0-8.0 N Per formed by = PROT) certified tor at [facility] ed Ctr ALBUMIN (test code = [...] 67 UNITS/L 25-125 N LYNDSEY) BASIC METABOLIC [id number] 19:54:00 Test Item Value Reference Range Interpretation [...] POCGLU) 81 MG/DL - CT ABD PELVIS W/[id number] 00:00:00 [facility] L[facility]: MARIA ISABEL JOSEPH : 1970 Sex: M Name: MARIA ISABEL JOSEPH FSED : 1970 Age/S: 51 / M [address] [facility] Unit #: [id number] Loc: [place] [address] Phys: Raffaele Levi MD Acct: [id number] Dis Date: Status: PRE ER PHONE #: Exam Date: 09/23/20211999 FAX #: Reason: RUQ PAIN, VOMITING EXAMS: CPT CODE: [id number] CT ABD PELVIS W/CONT 41998 PROCEDURE INFORMATION: Exam: CT Abdomen And Pelvis [...] : 1970 Age/S: 51 / M [address] [facility] Unit #: [id number] Loc: [place] [address] Phys: Raffaele Levi MD Acct: [id number] Dis Date: Status: PRE ER PHONE #: Exam Date: 09/23/20211999 FAX #: Reason: RUQ PAIN, VOMITING EXAMS: CPT CODE: [id number] CT ABD PELVIS W/CONT 19867 <Continued> abdominal small bowel loops may relate [...] (2049) PAGE 2 Signed Report COMPREHENSIVE METABOLIC [id number] 11:51:00 Test Item Value Reference Range Interpretation [...] Units/L 50.0-136.0 N code = ALKP) PROTHROMBIN [id number] 11:41:00 Test Item Value Reference Range Interpretation Comments PROTHROMBIN TIME 10.9 SECONDS 9.9-12.8 N PATIENT (test code = PTP) INTERNATIONAL NORMAL 0.9 0.89-1.14 N THE INR IS TO BE USED RATIO (test code = ONLY FOR MONITORING INR) ORAL ANTICOAGULANTTH ERAPY. THE FOLLOWING A RE SUGGESTED RANGE S FROM [facility] LEGE OF CHEST PHYSICIANS:LOLITA CATION [...] 3.0 ACUTE MYOCARDIA L INFARCTION (TO PREVENT RECURRE NT INFARCT) 2.5 - 3.0 VALVULAR HEART DISEASE 2.0 - 3.0 ATRIA L FIBRILATION 2.0 - 3.0BILEAFLET MECHANICAL VALV E IN AORTIC POSITION 2.0 - 3.0MECHANICAL PROSTHETIC VALV ES (HIGH RISK) 2.5 - 3.5PRESENCE OF LUPUS ANTICOAGULANT O R ANTIPHOSPHOLIPI D ANTIBODIES 2.5 - 3.5 CBC W/AUTO [id number] 11:36:00 Test Item Value Reference Range Interpretation [...] X10 3uL 0.00-0.01 N NRBC#) CBC W/AUTO [id number] 09:48:00 Test Item Value Reference Range Interpretation [...] = MX#) 0.8 k/mm3 0.1-0.8 N GLUCOSE [id number] 06:12:00 Test Item Value Reference Range Interpretation Comments GLUCOSE BEDSIDE (test 129 MG/DL 70-110 H Perfor med by certified code = GLUBED) 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 [facility] BASIC METABOLIC [id number] 05:21:00 Test Item Value Reference Range Interpretation [...] (test code = POCGLU) 92 MG/DL GLUCOSE [id number] 05:19:00 Test Item Value Reference Range Interpretation Comments GLUCOSE BEDSIDE (test 51 MG/DL 70-110 L Perfor med by certified code = GLUBED) 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 [facility] CBC W/AUTO [id number] 14:00:00 Test Item Value Reference Range Interpretation [...] MX#) 0.2 k/mm3 0.1-0.8 N CBC W/AUTO [id number] 00:07:00 Test Item Value Reference Range Interpretation [...] = LY#) 2.4 K/uL 1.0-3.8 N LIVER [id number] 16:14:00 Test Item Value Reference Range Interpretation Comments TOTAL PROTEIN (test code 7.5 GM/DL 5.0-8.0 N Per formed by = PROT) 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 [facility] ALBUMIN (test code = [...] 65 UNITS/L 25-125 N LYNDSEY) BASIC METABOLIC [id number] 16:07:00 Test Item Value Reference Range Interpretation [...] POCGLU) 96 MG/DL - XR CHEST 1 [id number] 00:00:00 [facility] 1970 Sex: MFAX: Steve Urias MD [phone] [place]: [place] St: PRE Name: JOSEPHDORA FSED : 1970 Age/S: 51/M [address] [facility] Unit #: [id number] Loc: [place] [address] Phys: Steve Urias MD Acct: [id number] Dis Date: Status: PRE ER PHONE #: Exam Date: 06/27/2021 5096 FAX #: Reason: Abdominal PainEXAMS: CPT CODE: [id number] XR CHEST 1 V 58895 PROCEDURE INFORMATION: Exam: XR Chest Exam date [...] By: [email or web address] Orig Print D/T: S: 06/27/2021 (5060)PAGE 1 Signed Report- CT ABD PELVIS W/[id number] 00:00:00 [facility] : 1970 Sex: MName: DORA JOSEPH FSED : 1970 Age/S: 51 / M [address] [facility] Unit #: [id number] Loc: [place] [address] Phys: Steve Urias MD Acct: [id number] Dis Date: Status: REG ER PHONE #: Exam Date: 06/27/2021 7456 FAX #: Reason: pain in region of colostomy EXAMS: CPT CODE: [id number] CT ABD PELVIS W/CONT 92348 PROCEDURE INFORMATION: Exam: CT Abdomen And Pelvis [...] : 1970 Age/S: 51 / M [address] [facility] Unit #: [id number] Loc: [place] [address] Phys: Steve Urias MD Acct: [id number] Dis Date: Status: REG ER PHONE #: Exam Date: 06/27/2021 7313 FAX #: Reason: pain in region of colostomy EXAMS: CPT CODE: [id number] CT ABD PELVIS W/CONT 28385 <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 There is no evidence of associated intestinal obstruction. 2. No additional acute CT abnormalities of the abdomen or pelvis are identified. SL:131 at 1650 Reported and signed by: Marco Raman M.D. CC: Steve Urias MD Technologist:Yecenia Carbajal, RT(R)(CT) CTDI: DLP: Trnscb Date/Time: 06/27/2021 (1649) t.FLEXR.DMM Orig Print D/T: S: 06/27/2021 (1649) PAGE 2 Signed ReportCBC W/AUTO [id number] 09:20:00 Test Item Value Reference Range Interpretation [...] (test code NO = MDIFF) CBC W/AUTO [id number] 08:59:00 Test Item Value Reference Range Interpretation [...] REQUIRED (test code = MDIFF) BASIC METABOLIC [id number] 08:21:00 Test Item Value Reference Range Interpretation [...] 8.4 mg/dL 8.0-10.5 N CA) BASIC METABOLIC [id number] 08:34:00 Test Item Value Reference Range Interpretation [...] 8.4 mg/dL 8.0-10.5 N CA) CBC W/AUTO [id number] 07:41:00 Test Item Value Reference Range Interpretation [...] = MDIFF) UA RFLX MICR CULT IF [id number] 10:10:00 Test Item Value Reference Range Interpretation [...] 100.4 FSpecimen Description: [facility] [id number] 04:13:00 Test Item Value Reference Range Interpretation [...] mg/dL 8.0-10.5 N CA) Coronavirus 2019 nCoV [id number] 22:03:00 Test Item Value Reference Range Interpretation Comments Coronavirus 2019 Negative Negative Performed b y certified nCoV Bedside (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 Negative result s do not preclude NGMK-AdO-9pepzj tion and should not be u sed as the sole basis forp atient management deci sions. Negative result s should beconsidered in the context of a patient's recent exposures,histo ry, presence of clinical sig ns and symptoms consis tentwith COVID-19. CBC W/AUTO [id number] 21:11:00 Test Item Value Reference Range Interpretation [...] MX#) 0.6 k/mm3 0.1-0.8 N BASIC METABOLIC [id number] 19:00:00 Test Item Value Reference Range Interpretation [...] POCGLU) 92 MG/DL - CT ABD PELVIS W/[id number] 00:00:00 [facility] : 1970 Sex: MName: DORA JOSEPH FSED : 1970 Age/S: 51 / M [address] [facility] Unit #: [id number] Loc: [place] [address] Phys: Marcello Benoit MD Acct: [id number] Dis Date: Status: REG ERPHONE #: Exam Date: 04/28/20211913 FAX #: Reason: epigastric and LLQ pain, R-sided colostomy EXAMS: CPT CODE: [id number] CT ABD PELVIS W/CONT 15785 PROCEDURE INFORMATION: Exam: CT Abdomen And Pelvis [...] 1 Signed Report (CONTINUED) Name: DORA JOSEPH [facility] : 1970 Age/S: 51 / M [address] [facility] Unit #: [id number] Loc: [place] [address] Phys: Marcello Benoit MD Acct: [id number] Dis Date: Status: REG ER PHONE #: Exam Date: 04/28/20211913 FAX #: Reason: epigastric and LLQ pain, R-sided colostomy EXAMS: CPT CODE: [id number] CT ABD PELVIS W/CONT 57967 <Continued> Reproductive: Unremarkable as visualized. Bones/joints: Unremarkable. [...] PAGE 2 Signed Report- XR ABDOMEN 1 [id number] 12:53:00 Name: DORA JOSEPH [facility] : 1970 Age/S: 50 / M [address] [facility] Unit #: [id number] Loc: [place] [address] 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 Acct: [id number] Dis Date: Status: ADM IN PHONE #: [phone] Exam Date: 02/25/2020 1036 FAX #: Reason: abdominal distention EXAMS: CPT: [id number] XR ABDOMEN 1 V 43028 Fluoro Time: DAP (Gy m2): Air Kerma [...] the left lower quadrant (not previously seen) ml3224 Reported and signed by: Sol Paige MD CC: Andre Solano; Mark Perea MD PAGE 1 Signed Report Name: DORA JOSEPH [facility] : 1970 Age/S: 50 / M [address] Unit #: [id number] Loc: [place] [address] 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 Acct: [id number] Dis Date: Status: ADM IN PHONE #: [phone] Exam Date: 02/25/2020 1036 FAX #: Reason: abdominal distention EXAMS: CPT: [id number] XR ABDOMEN 1 V 44306 Fluoro Time: DAP (Gy m2): Air Kerma (mGy): <Continued> Technologist: Nichole Dill RT(R) Trnscb Date/Time: 02/25/2020 (057) Anya Orig Print D/T: S: 02/25/2020 (1863) PAGE 2 Signed Report COMPREHENSIVE METABOLIC [id number] 08:20:00 Test Item Value Reference Range Interpretation [...] 50-136 L TOTAL (test code = ALKP) [id number] 08:20:00 Test Item Value Reference Range Interpretation Comments MAGNESIUM (test code = MAG) 2.2 MG/DL 1.8-2.4 N THYROID STIMULATING [id number] 08:20:00 Test Item Value Reference Range Interpretation Comments THYROID STIMULATING HORMONE 5.430 mcIU/ML 0.340-4.820 H (test code = TSH) CBC W/AUTO [id number] 07:55:00 Test Item Value Reference Range Interpretation [...] N NRBC#) UA RFLX MICR CULT IF [id number] 12:29:00 Test Item Value Reference Range Interpretation [...] culture: Suprapubic PainUA RFLX MICR CULT IF [id number] 12:29:00 Test Item Value Reference Range Interpretation [...] for culture: Suprapubic PainCOVID 19 Asymptomatic IH [id number] 22:09:00 Test Item Value Reference Range Interpretation [...] tent with COVID-19. - CT ABD PELVIS W/[id number] 21:10:00 Name: DORA JOSEPH [facility] : 1970 Age/S: 50 / M [address] Unit #: [id number] Loc: [place] [address] Phys: Evin Castellanos MD Acct: [id number] Dis Date: Status: REG ERPHONE #: [phone] Exam Date: 02/23/20202047 FAX #: Reason: diffuse abdomen pain and distention EXAMS: CPT: [id number] CT ABD PELVIS W/CONT 71509 EXAM: - CT ABD PELVIS W/CONT LOCATION: [...] hepatic lesions or intrahepatic biliary dilatation. GALLBLADDER/BILIARY SY STEM: Contracted gallbladder. PANCREAS: Unremarkable. SPLEEN: No splenomegaly or focal lesions. ADRENALS: No adrenal nodules. KIDNEYS/URETERS: No hydronephrosis, stones, or solid mass lesions. VESSELS:No AAA. Patent portal vein. LYMPH NODES: No [...] 1 Signed Report (CONTINUED) Name: DORA JOSEPH [facility] : 1970 Age/S: 50 / M [address] Unit #: [id number] Loc: [place] [address] Phys: Evin Castellanos MD Acct: [id number] Dis Date: Status: REG ER PHONE #: [phone] Date: 02/23/20202047 FAX #: Reason: diffuse abdomen pain and distention EXAMS: CPT: [id number] CT ABD PELVIS W/CONT 86476 <Continued> CT. No bowel wall thickening or [...] PAGE 2 Signed Report- XR CHEST 1 [id number] 21:03:00 [facility] [place] [facility] 1970 Age/S: 50 / M [address] Unit #: [id number] Loc: [place] [address] Phys: Evin Castellanos MD Acct: [id number] Dis Date: Status: REG ER PHONE #: [phone] Exam Date: 02/23/20202055 FAX #: Reason: Code Sepsis EXAMS: CPT: [id number] XR CHEST 1 V 08239 Fluoro Time: DAP (Gy m2): Air Kerma [...] by: Monica Quijano MD CC: Susana Meza CHIEF CREATIVE OFFICER; Carl Luevano MD PAGE 1 Signed Report Name: DORA JOSEPH [place] : 1970 Age/S: 50 / M [facility] [address] Unit #: [id number] Loc: [place] [address] Phys: Evin Castellanos MD Acct: [id number] Dis Date: Status: REG ER PHONE #: [phone] Exam Date: 02/23/20202055 FAX #: Reason: Code Sepsis EXAMS: CPT: [id number] XR CHEST 1 V 61002 Fluoro Time: DAP (Gy m2): Air Kerma (mGy): <Continued> Technologist: Rudy Zuniga, RT(R)(CT)(MRI) Trnscb Date/Time: 02/23/2020 (2102) GarettCLW Orig Print D/T: S: 02/23/2020 (2106) PAGE 2 Signed ReportBASIC METABOLIC [id number] 20:02:00 Test Item Value Reference Range Interpretation [...] 8.5-10.1 N Completed by Nursing: NOHEPATIC FUNCTION [id number] 20:02:00 Test Item Value Reference Range Interpretation [...] N code = ALKP) Completed by Nursing: [id number] 20:02:00 Test Item Value Reference Range Interpretation Comments LIPASE (test code = LIP) 97 Unit/L 114-286 L Completed by Nursing: [id number] 20:02:00 Test Item Value Reference Range Interpretation [...] brittani yby method. Completed by Nursing: NOLACTIC [id number] 19:59:00 Test Item Value Reference Range Interpretation Comments LACTIC ACID (test code = LACT) 1.2 mmol/L 0.4-2.0 N CBC W/AUTO [id number] 19:46:00 Test Item Value Reference Range Interpretation [...] CRITERIA = MDIFF) - XR ABDOMEN 2 [id number] 06:22:00 Name: DORA JOSEPH [facility] : 1970 Age/S: 50 / M [address] Unit #: [id number] Loc: [place] [address] Phys: León Robertson MD Acct: [id number] Dis Date: Status: ADM IN PHONE #: [phone] Exam Date: 02/19/2020439 FAX #: Reason: megacolon EXAMS: CPT: [id number] XR ABDOMEN 2 V 83614 Fluoro Time: DAP (Gy m2): Air Kerma [...] PAGE 1 Signed Report Name: DORA JOSEPH [facility] : 1970 Age/S: 50 / M [address] Unit #: [id number] Loc: [place] [address] Phys: León Robertson MD Acct: [id number] Dis Date: Status: ADM IN PHONE #: [phone] Exam Date: 02/19/2020 0440 FAX #: Reason: megacolon EXAMS: CPT: [id number] XR ABDOMEN 2 V 42773 Fluoro Time: DAP (Gy m2): Air Kerma (mGy): <Continued> Technologist: Carrie Barnett, RT(R)(CT) Trnscb Date/Time: 02/19/2020 (06) t.SDR.AL7 Orig Print D/T: S: 02/19/2020 (0625) PAGE 2 Signed ReportBASIC METABOLIC [id number] 05:52:00 Test Item Value Reference Range Interpretation [...] CA) 8.5 MG/DL 8.5-10.1 N CBC W/AUTO [id number] 05:40:00 Test Item Value Reference Range Interpretation [...] NO DIFF/SCN CRITERIA = MDIFF) BASIC METABOLIC [id number] 06:52:00 Test Item Value Reference Range Interpretation [...] CA) 8.3 MG/DL 8.5-10.1 L CBC W/AUTO [id number] 06:39:00 Test Item Value Reference Range Interpretation [...] DIFF/SCN CRITERIA = MDIFF) Coronavirus 2019 nCoV [id number] 05:35:00 Test Item Value Reference Range Interpretation [...] tent with COVID-19. - XR ABDOMEN 1 [id number] 07:32:00 Name: DORA JOSEPH [facility] : 1970 Age/S: 49 / M [address] Unit #: [id number] Loc: [place] [address] Phys: Jay Mayo MD Acct: [id number] Dis Date: Status: ADM IN PHONE #: [phone] Exam Date: 01/10/2020 0658 FAX #: Reason: follow up colonic ileus EXAMS: CPT: [id number] XR ABDOMEN 1 V 92766 Fluoro Time: DAP (Gy m2): Air Kerma [...] PAGE 1 Signed Report Name: DORA JOSEPH [facility] : 1970Age/S: 49 / M [address] Unit #: [id number] Loc: [place] [address] Phys: Jay Mayo MD Acct: [id number] Dis Date: Status: ADM IN PHONE #: [phone] Exam Date: 01/10/202058 FAX #: Reason: follow up colonic ileus EXAMS: CPT: [id number] XR ABDOMEN 1 V 19475 Fluoro Time: DAP (Gym2): Air Kerma (mGy): <Continued> Technologist: Bakari De Leon RT(R)(CT) Trnscb Date/Time: 01/10/2020 (32) tJUDSONCB5 Orig Print D/T: S: 01/10/2020 (0736) PAGE 2 Signed ReportCOMPREHENSIVE METABOLIC [id number] 05:56:00 Test Item Value Reference Range Interpretation [...] TOTAL (test code = ALKP) CBC W/AUTO [id number] 05:42:00 Test Item Value Reference Range Interpretation [...] = NO DIFF/SCN CRITERIA MDIFF) BASIC METABOLIC [id number] 06:59:00 Test Item Value Reference Range Interpretation [...] code = CA) 8.5 MG/DL 8.5-10.1 N [id number] 06:59:00 Test Item Value Reference Range Interpretation Comments MAGNESIUM (test code = MAG) 2.2 MG/DL 1.8-2.4 PROTHROMBIN [id number] 06:39:00 Test Item Value Reference Range Interpretation Comments PT PATIENT (test code = PTP) 13.1 SECONDS 9.3-12.9 H INTERNATIONAL NORMAL RATIO 1.16 INR Unit 0.8-1.2 N (test code = INR) CBC W/AUTO [id number] 06:22:00 Test Item Value Reference Range Interpretation [...] DIFF/SCN CRITERIA MDIFF) - XR ABDOMEN 1 [id number] 05:39:00 Name: DORA JOSEPH [place] : 1970 Age/S: 49 / M [address] Unit #: [id number] Loc: [place] [address] 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 Acct: [id number] Dis Date: Status: ADM IN PHONE #: [phone] Exam Date: 01/09/2020522 FAX #: Reason: colonic ileus/obstruction EXAMS: CPT: [id number] XR ABDOMEN 1 V 85782 Fluoro Time: DAP (Gy m2): Air Kerma [...] PAGE 1 Signed Report Name: DORA JOSEPH [place] : 1970 Age/S: 49 / M [address] [facility] Unit #: [id number] Loc: [place] [address] 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 Acct: [id number] Dis Date: Status: ADM IN PHONE #: [phone] Exam Date: 01/09/2020522 FAX #: Reason: colonic ileus/obstruction EXAMS: CPT: [id number] XR ABDOMEN 1 V 70247 Fluoro Time: DAP (Gy m2): Air Kerma (mGy): <Continued> Technologist: Carrie Barnett, RT(R)(CT) Trnscb Date/Time: 01/09/2020 (0539) tKARTIK Orig Print D/T: S: 01/09/2020 (0542) PAGE2 Signed ReportCoronavirus 2019 nCoV [id number] 22:38:00 Test Item Value Reference Range Interpretation Comments Coronavirus 2019 nCoV Bedside (test Negative Negative code = [id number]) Emergent procedure? YESCoronavirus 2018 nCoV [id number] 22:38:00 Test Item Value Reference Range Interpretation Comments Coronavirus 2019 nCoV Bedside (test Negative Negative code = [id number]) Emergent procedure? YESBASIC METABOLIC [id number] 18:42:00 Test Item Value Reference Range Interpretation [...] CA) 8.5 MG/DL 8.5-10.1 N CBC W/AUTO [id number] 10:50:00 Test Item Value Reference Range Interpretation [...] = NO DIFF/SCN CRITERIA MDIFF) COMPREHENSIVE METABOLIC [id number] 10:46:00 Test Item Value Reference Range Interpretation [...] 50-136 N TOTAL (test code = ALKP) [id number] 10:46:00 Test Item Value Reference Range Interpretation Comments MAGNESIUM (test code = MAG) 2.6 MG/DL 1.8-2.4 H COMPREHENSIVE METABOLIC [id number] 10:34:00 Test Item Value Reference Range Interpretation [...] TOTAL (test Unit/L 50-136 code = ALKP) [id number] 10:34:00 Test Item Value Reference Range Interpretation Comments MAGNESIUM (test code = MAG) MG/DL 1.8-2.4 - XR ABDOMEN 1 [id number] 08:28:00 Name: DORA JOSEPH [place] : 1970 Age/S: 49 / M [address] [address] Unit #: [id number] Loc: [place] [address] Phys: Yas Edwards MD Acct: [id number] Dis Date: Status: ADM IN PHONE#: [phone] Exam Date: 01/08/2020509 FAX #: Reason: ileus EXAMS: CPT: [id number] XR ABDOMEN 1 A82387 Fluoro Time: DAP (Gy m2): Air Kerma [...] PAGE 1 Signed Report Name: DORA JOSEPH [place] : 1970 Age/S: 49 / M [address] [facility] Unit #: [id number] Loc: [place] [address] Phys: Yas Edwards MD Acct: [id number] Dis Date: Status: ADM IN PHONE #: [phone] Exam Date: 01/08/2020 0510 FAX #: Reason: ileus EXAMS: CPT: [id number] XR ABDOMEN 1 V 24578 Fluoro Time: DAP (Gy m2): Air Kerma (mGy): <Continued> Technologist: Carrie Barnett, RT(R)(CT); ... Trnscb Date/Time: 01/08/2020 (827) [facility] Orig Print D/T: S: 01/08/2020 (0831) PAGE 2 Signed ReportCOMPREHENSIVE METABOLIC [id number] 07:08:00 Test Item Value Reference Range Interpretation [...] 50-136 L TOTAL (test code = ALKP) [id number] 07:08:00 Test Item Value Reference Range Interpretation Comments MAGNESIUM (test code = MAG) 1.3 MG/DL 1.8-2.4 L COMPREHENSIVE METABOLIC [id number] 05:16:00 Test Item Value Reference Range Interpretation [...] 50-136 L TOTAL (test code = ALKP) [id number] 05:16:00 Test Item Value Reference Range Interpretation Comments MAGNESIUM (test code = MAG) 1.3 MG/DL 1.8-2.4 L CBC W/AUTO [id number] 05:02:00 Test Item Value Reference Range Interpretation [...] (test code = NO DIFF/SCN CRITERIA MDIFF) [id number] 16:51:00 Test Item Value Reference Range Interpretation Comments MAGNESIUM (test code = MAG) 2.3 MG/DL 1.8-2.4 N FE W/TOTAL IRON BINDING CAP.2020-01-07 16:51:00 Test Item Value Reference Range Interpretation Comments SERUM IRON (test code = IRON) 38 mcG/DL 65-175 L TOTAL IRON BINDING CAPACITY (test 322 mcG/DL 250-450 N code = TIBC) IRON SATURATION (test code = 12 % calc 12-57 N FESAT) [id number] 16:51:00 Test Item Value Reference Range Interpretation Comments FERRITIN (test code = DAVID) 17.6 NG/ML 5.0-323.0 N CALCIUM [id number] 16:50:00 Test Item Value Reference Range Interpretation Comments CALCIUM IONIZED (test code = NAVEED) 1.12 mmol/L 1.12-1.32 N - XR ABDOMEN 1 [id number] 10:29:00 Name: DORA JOSEPH [facility] : 1970 Age/S: 49 / M [address] [address] Unit #: [id number] Loc: [place] [address] Phys: Verona Frost PA-C Acct: [id number] Dis Date: Status: ADM IN PHONE #: [phone] Exam Date: 01/07/2020 0712 FAX #: Reason: reassess SBO EXAMS: CPT: [id number] XRABDOMEN 1 V 16114 Fluoro Time: DAP (Gy m2): Air Kerma [...] PAGE 1 Signed Report Name: DORA JOSEPH [facility] : 1970 Age/S: 49 / M [address] [address] Unit #: [id number] Loc: [place] [address] Phys: Verona Frost PA-C Acct: [id number] Dis Date: Status: ADM IN PHONE #: [phone] Exam Date: 01/07/2020 0712 FAX #: Reason: reassess SBO EXAMS: CPT: [id number] XR ABDOMEN 1 V 19492 Fluoro Time: DAP (Gy m2): Air Kerma [...] CA) 5.4 MG/DL 8.5-10.1 LL CBC W/AUTO [id number] 06:49:00 Test Item Value Reference Range Interpretation [...] = NO DIFF/SCN CRITERIA MDIFF) COMPREHENSIVE METABOLIC [id number] 06:10:00 Test Item Value Reference Range Interpretation [...] TOTAL (test code = ALKP) CBC W/AUTO [id number] 05:52:00 Test Item Value Reference Range Interpretation [...] DIFF/SCN CRITERIA MDIFF) - XR ABDOMEN 1 [id number] 01:30:00 Name: DORA JOSEPH [place] : 1970 Age/S: 49 / M [address] [address] Unit #: [id number] Loc: [place] [address] Phys: Ted Coleman NP Acct: [id number] Dis Date: Status: ADM IN PHONE #: [phone] Exam Date: 01/06/2020 0100 FAX #: Reason: NG Tube Placement Verification EXAMS: CPT: [id number] XR ABDOMEN 1 V 18328 Fluoro Time: DAP (Gy m2): Air Kerma [...] PAGE 1 Signed Report Name: DORA JOSEPH [place] : 1970 Age/S: 49/ M [address] [facility] Unit #: [id number] Loc: [place] [address] Phys: Ted Coleman NP Acct: [id number] Dis Date: Status: ADM IN PHONE #: [phone] Exam Date: 01/06/2020 0100 FAX #: Reason: NG Tube Placement Verification EXAMS: CPT: [id number] XR ABDOMEN 1 V 29322 Fluoro Time: DAP (Gy m2):Air Kerma (mGy): <Continued> Technologist: Amberly Borrero RT(R) Trnscb Date/Time: 01/06/2020 (013) GarettFC Orig Print D/T: S: 01/06/2020 (013) PAGE 2 Signed Report- CT ABD PELVIS W/O [id number] 19:42:00 [place]: St: REG -- Name: DORA JOSEPH [facility] : 1970 Age/S: 49/M [address] [facility] Unit: [id number] Loc: [place], [place] Phys: [place] [address] Acct: [id number] Dis Date: Status: REG ER PHONE #: [phone] Exam Date: 12/13/20191924 FAX #: [phone] Reason: pain EXAMS: CPT CODE: [id number] CT ABD PELVIS W/O CONT 87345 Examination: CT scan abdomen and pelvis without [...] 12/13/2019 (5 PAGE 1 Signed ReportBASIC METABOLIC [id number] 18:49:00 Test Item Value Reference Range Interpretation [...] code = CA) 8.6 mg/dl 8.0-10.5 N [id number] 18:49:00 Test Item Value Reference Range Interpretation Comments LIPASE (test code = LIP) 97 Units/L 65.0-230.0 N CBC W/AUTO [id number] 18:38:00 Test Item Value Reference Range Interpretation [...] K/mm3 0.0-0.2 N - XR CHEST 1 [id number] 18:36:00 [place]: EM St: PRE -- Name: DORA JOSEPH [facility] : 1970 Age/S: 49/M [facility] Unit #: [id number] Loc: [place], [place] Phys: [place] [address] Acct: [id number] Dis Date: Status: PRE ER PHONE #: [phone] Exam Date: 12/13/20191821 FAX #: [phone] Reason: SOB EXAMS: CPT CODE: [id number] XR CHEST 1 V 13693 Examination: One view chest x-ray Location code: H60 Comparison: None Discussion: Clinical history is remarkable for shortness of breath and weakness. Heart is normal in size. Lungs are clear of consolidating infiltrates. No effusions identified. There is significant distention of the colon. Impression: 1. Normal one view chest x-ray. 2. Colonic distention. at 1836 Reported and signed by: SHANEL EDWARDS CC:Technologist: AMBER GENTILE Trntnrd Date/Time/By: 12/13/2019 (1835) : By: [email or web address] PAGE 1 Signed Report [place]: St: PRE ----- Name: DORA JOSEPH [facility] : 1970 Age/S: 49/M [address] [place] [address] [employer] Unit #: [id number] Loc: [place], [place] Phys: [place] [id number] Acct: [id number] Dis Date: Status: PRE ER PHONE #: [phone] Exam Date: 12/13/20191821 FAX #: [phone] Reason: SOB EXAMS: CPT CODE: [id number] XR CHEST 1 V 79284 (Continued) Orig Print D/T: S: 12/13/2019 (1839) [...] Received comment: User comments: Slide comments:BASIC METABOLIC [id number] 07:34:00 Test Item Value Reference Range Interpretation [...] S NOT APPLICABLE FOR DIALYSIS PATIEN TS. [id number] 07:26:00 Test Item Value Reference Range Interpretation Comments PHOSPHORUS (BEAKER) (test code = 3.1 mg/dL 2.3-4.7 604) [id number] 07:26:00 Test Item Value Reference Range Interpretation Comments MAGNESIUM (BEAKER) (test code = 1.6 mg/dL 1.6-2.6 627) RAD, ABDOMEN/KUB, 1 VIEW [id number] 07:04:00Reason for exam:->ileusFINAL REPORT Abdomen , one [...] MDReport Verified Date/Time: 04/03/2019 07:04:46 Reading Location: [address] Ortho Consult Reading Room BASIC METABOLIC [id number] 06:47:00 Test Item Value Reference Range Interpretation [...] code = 413) URINALYSIS WITH MICROSCOPIC IF [id number] 22:01:00 Test Item Value Reference Range Interpretation [...] 463) SOURCE(BEAKER) (test code = 2795) URINALYSIS [id number] 22:01:00 Test Item Value Reference Range Interpretation Comments RBC UA (BEAKER) (test code = 519) 18 /HPF WBC UA (BEAKER) (test code = 520) 1 /HPF CALCIUM OXALATE CRYSTALS (BEAKER) Occasional (test code = 518) [id number] 05:49:00 Test Item Value Reference Range Interpretation Comments PHOSPHORUS (BEAKER) (test code = 2.5 mg/dL 2.3-4.7 604) [id number] 05:49:00 Test Item Value Reference Range Interpretation Comments MAGNESIUM (BEAKER) (test code = 1.7 mg/dL 1.6-2.6 627) BASIC METABOLIC [id number] 05:49:00 Test Item Value Reference Range Interpretation [...] (BEAKER) (test code = 413) BASIC METABOLIC [id number] 06:19:00 Test Item Value Reference Range Interpretation [...] S NOT APPLICABLE FOR DIALYSIS PATIEN TS. [id number] 06:10:00 Test Item Value Reference Range Interpretation Comments MAGNESIUM (BEAKER) 1.8 mg/dL 1.6-2.6 Specimen slightly (test code = 627) hemolyzed [id number] 06:10:00 Test Item Value Reference Range Interpretation [...] (BEAKER) (test code = 413) BASIC METABOLIC [id number] 04:57:00 Test Item Value Reference Range Interpretation [...] S NOT APPLICABLE FOR DIALYSIS PATIEN TS. [id number] 04:55:00 Test Item Value Reference Range Interpretation Comments PHOSPHORUS (BEAKER) (test code = 2.6 mg/dL 2.3-4.7 604) [id number] 04:55:00 Test Item Value Reference Range Interpretation Comments MAGNESIUM (BEAKER) (test code = 1.8 mg/dL 1.6-2.6 627) CT, [id number] 14:16:00FINAL REPORT TECHNIQUE: CT of the abdomen [...] MDReport Verified Date/Time: 03/29/2019 14:16:01Reading Location: [facility] C013Y CT Body Reading Room , ABDOMEN/KUB, 1 VIEW [id number] 10:23:00Reason for exam:->evaluate ileusFINAL REPORT Technique: Supine [...] MDReport Verified Date/Time: 03/29/2019 10:23:29 Reading Location: [facility] Reading Room CBC (HEMOGRAM ONLY)2019-03-29 [...] WBC 0-0 (BEAKER) (test code = 413) [id number] 06:20:00 Test Item Value Reference Range Interpretation Comments PHOSPHORUS (BEAKER) (test code = 2.6 mg/dL 2.3-4.7 604) [id number] 06:20:00 Test Item Value Reference Range Interpretation Comments MAGNESIUM (BEAKER) (test code = 2.0 mg/dL 1.6-2.6 627) BASIC METABOLIC [id number] 06:20:00 Test Item Value Reference Range Interpretation [...] TS. RAD, ABDOMEN SERIES W/ UPRIGHT PA [id number] 22:18:00Reason for exam:- >eval ileusFINAL REPORT CLINICAL [...] Date/Time: 03/28/2019 22:18:50 RAD, ABDOMEN/KUB, 1 VIEW [id number] 11:23:00Reason for exam:->abdominal distensionShould this be performed [...] Cruz Verified Date/Time: 03/28/2019 11:23:34 Reading Location: [facility] Radiology Reading Room TISSUE [id number] 09:00:00Surgical Pathology Report Case: [id number] Authorizing Provider: Graciela Garrison MD Collected: 03/25/2019 1133 Ordering Location: [facility] Received: 03/25/2019 1527 SERVICES Pathologist: [...] FOR MALIGNANCY Signing Pathologist Direct Phone Line: [phone] signed by Chiara Celaya MD on 03/28/2019 at 9:00 [id number] and postop diagnosis: ileostomy statusA. End ileostomy; [...] are not identified in the mesentery. Director Of [employer] sections are submitted. Section code: A, agricultural sales representative section of each end of first mentioned segment of small bowel; A2, agricultural sales representative of first mentioned segment of small bowel mucosa; A3, area of hemorrhagic mesentery of second mentioned segment of mucosa; A4, agricultural sales representative of hemorrhagicmucosa at open end of second portion of small bowel; A5, agricultural sales representative of stapled margin from second [...] cm. No gross lesions are identified. Director Of Convention Services sections are submitted. Section code: B1, proximal margin en face and tip; B2, agricultural sales representative cross section. CG/pl Performed.[id number] 06:23:00 Test Item Value Reference Range Interpretation Comments PHOSPHORUS (BEAKER) (test code = 2.7 mg/dL 2.3-4.7 604) [id number] 06:23:00 Test Item Value Reference Range Interpretation Comments MAGNESIUM (BEAKER) (test code = 1.9 mg/dL 1.6-2.6 627) BASIC METABOLIC [id number] 06:23:00 Test Item Value Reference Range Interpretation [...] S NOT APPLICABLE FOR DIALYSIS PATIEN TS. [id number] 08:20:00 Test Item Value Reference Range Interpretation Comments PHOSPHORUS (BEAKER) (test code = 2.6 mg/dL 2.3-4.7 604) [id number] 08:20:00 Test Item Value Reference Range Interpretation Comments MAGNESIUM (BEAKER) (test code = 1.8 mg/dL 1.6-2.6 627) BASIC METABOLIC [id number] 08:20:00 Test Item Value Reference Range Interpretation [...] S NOT APPLICABLE FOR DIALYSIS PATIEN TS. [id number] 06:06:00 Test Item Value Reference Range Interpretation Comments PHOSPHORUS (BEAKER) (test code = 4.1 mg/dL 2.3-4.7 604) [id number] 06:06:00 Test Item Value Reference Range Interpretation Comments MAGNESIUM (BEAKER) (test code = 1.8 mg/dL 1.6-2.6 627) BASIC METABOLIC [id number] 06:06:00 Test Item Value Reference Range Interpretation [...] S NOT APPLICABLE FOR DIALYSIS PATIEN TS. [id number] 06:03:00 Test Item Value Reference Range Interpretation Comments PHOSPHORUS (BEAKER) (test code = 4.2 mg/dL 2.3-4.7 604) [id number] 06:03:00 Test Item Value Reference Range Interpretation Comments MAGNESIUM (BEAKER) (test code = 2.0 mg/dL 1.6-2.6 627) BASIC METABOLIC [id number] 06:03:00 Test Item Value Reference Range Interpretation [...] WBC 0-0 (BEAKER) (test code = 413) [id number] 05:52:00 Test Item Value Reference Range Interpretation Comments PHOSPHORUS (BEAKER) (test code = 4.2 mg/dL 2.3-4.7 604) [id number] 05:52:00 Test Item Value Reference Range Interpretation Comments MAGNESIUM (BEAKER) (test code = 1.9 mg/dL 1.6-2.6 627) BASIC METABOLIC [id number] 05:52:00 Test Item Value Reference Range Interpretation [...] S NOT APPLICABLE FOR DIALYSIS PATIEN TS. [id number] 06:51:00 Test Item Value Reference Range Interpretation Comments PHOSPHORUS (BEAKER) (test code = 4.3 mg/dL 2.3-4.7 604) [id number] 06:51:00 Test Item Value Reference Range Interpretation Comments MAGNESIUM (BEAKER) (test code = 2.0 mg/dL 1.6-2.6 627) BASIC METABOLIC [id number] 06:51:00 Test Item Value Reference Range Interpretation [...] 0-0 (BEAKER) (test code = 413) TISSUE [id number] 11:50:00Surgical Pathology Report Case: [id number] Authorizing Provider: Mela Larson MD Collected: 03/18/2019 1827 Ordering Location: [facility] Received: 03/21/2019 0823 SERVICES Pathologist: Jordan Celaya MD Specimen: Small Bowel, NOS A. SMALL BOWEL, ILEOSTOMY PROLAPSE, TAKEDOWN: - ANASTOMOSIS SITE WITH ACTIVE CHRONIC INFLAMMATION AND FOCAL ISCHEMIC CHANGES - MUCOSAL RESECTION MARGINS, NEGATIVE FOR MALIGNANCY - ONE BENIGN LYMPH NODE (0/1) - NEGATIVE FOR DYSPLASIA OR MALIGNANCYSigning Pathologist Direct Phone Line: [phone] signed by Jordan Celaya MDon 03/22/2019 at 11:50 [id number] of ileostomyReceived in a container labeled "small [...] to 1.2 cm in greatest dimension. Director Of Convention Services sections are submitted as follows: A1-A2, mucosal resection margin, en face; A3-A6, agricultural sales representative sections of the possible ostomy stump; A7-A11, serial agricultural sales representative sections from mucosal resection margin to the possible ostomy stump; A12, two lymph nodes. TH/plPerformed.[id number] 06:58:00 Test Item Value Reference Range Interpretation Comments PHOSPHORUS (BEAKER) (test code = 3.8 mg/dL 2.3-4.7 604) [id number] 06:58:00 Test Item Value Reference Range Interpretation Comments MAGNESIUM (BEAKER) (test code = 2.0 mg/dL 1.6-2.6 627) BASIC METABOLIC [id number] 06:58:00 Test Item Value Reference Range Interpretation [...] PATIEN TS. CBC W/PLT COUNT & AUTO [id number] 05:42:00 Test Item Value Reference Range Interpretation [...] 0-1 PERCENT (BEAKER) (test code = 2801) RI, [id number] 17:42:00Reason for exam:->evaluate for colon stricture as [...] MDReport Verified Date/Time: 03/21/2019 17:42:21 Reading Location: [facility] C013X [facility] Consult Reading Room [id number] 03:58:00 Test Item Value Reference Range Interpretation Comments PHOSPHORUS (BEAKER) (test code = 3.0 mg/dL 2.3-4.7 604) [id number] 03:58:00 Test Item Value Reference Range Interpretation Comments MAGNESIUM (BEAKER) (test code = 2.0 mg/dL 1.6-2.6 627) BASIC METABOLIC [id number] 03:58:00 Test Item Value Reference Range Interpretation [...] PATIEN TS. CBC W/PLT COUNT & AUTO [id number] 03:20:00 Test Item Value Reference Range Interpretation [...] (BEAKER) (test code = 2801) BASIC METABOLIC [id number] 06:26:00 Test Item Value Reference Range Interpretation [...] S NOT APPLICABLE FOR DIALYSIS PATIEN TS. [id number] 06:05:00 Test Item Value Reference Range Interpretation Comments PHOSPHORUS (BEAKER) (test code = 2.2 mg/dL 2.3-4.7 L 604) [id number] 06:05:00 Test Item Value Reference Range Interpretation Comments MAGNESIUM (BEAKER) (test code = 2.0 mg/dL 1.6-2.6 627) CBC W/PLT COUNT & AUTO [id number] 05:25:00 Test Item Value Reference Range Interpretation [...] 0-1 PERCENT (BEAKER) (test code = 2801) [id number] 04:31:00 Test Item Value Reference Range Interpretation Comments PHOSPHORUS (BEAKER) (test code = 3.7 mg/dL 2.3-4.7 604) [id number] 04:31:00 Test Item Value Reference Range Interpretation Comments MAGNESIUM (BEAKER) (test code = 1.9 mg/dL 1.6-2.6 627) BASIC METABOLIC [id number] 04:31:00 Test Item Value Reference Range Interpretation [...] PATIEN TS. CBC W/PLT COUNT & AUTO [id number] 04:15:00 Test Item Value Reference Range Interpretation [...] 0-1 PERCENT (BEAKER) (test code = 2801) [id number] 06:41:00 Test Item Value Reference Range Interpretation Comments PHOSPHORUS (BEAKER) (test code = 3.1 mg/dL 2.3-4.7 604) [id number] 06:41:00 Test Item Value Reference Range Interpretation Comments MAGNESIUM (BEAKER) (test code = 1.9 mg/dL 1.6-2.6 627) BASIC METABOLIC [id number] 06:41:00 Test Item Value Reference Range Interpretation [...] PATIEN TS. CBC W/PLT COUNT & AUTO [id number] 06:36:00 Test Item Value Reference Range Interpretation [...] PERCENT (BEAKER) (test code = 2801) CT, [id number] 17:04:00No PO contrastFINAL REPORT ABDOMINAL AND PELVIS [...] Verified Date/Time: 03/17/2019 17:04:19 Reading Location: [facility] C013Y CT Body Reading Room XR ABDOMEN 2 [id number] 09:03:45XR ABDOMEN 2 VIEWSLOCATION: [id number]: Colstomy ProlapseCOMPARISON: Chest radiograph 04/15/2017, CT of [...] Nonspecific, nonobstructive bowel gas pattern.XR CHEST 1 [id number] 11:32:15EXAM: CHEST ONE VIEWINDICATION: Chest painCOMPARISON: None availableTECHNIQUE: AP view of the chest.FINDINGS: The cardiomediastinal silhouette is normal. The lungs are clearbilaterally. No pneumothoraxor pleural effusion is identified. Theosseous structures are unremarkable.IMPRESSION: No acute cardiopulmonary process.LOCATION: [id number] Type and [id number] 21:21:00 Test Item Value Reference Range Interpretation Comments ABO type (test code = ABO) O Rh Type (test code = RH) Positive Comprehensive Metabolic [id number] 20:36:00 Test Item Value Reference Range Interpretation [...] by th e MDRD study and rashi d be interpretedwith caution.eGFR Re sult Interpretation: eGFR > or = 60 is in t he Normal RangeeGF R < 60 may mean kidney diseaseeGFR < 1 5 may mean kidney failureRange s recommended by the National Kidney Foundation,http ://nkd ep.nih.gov Alcohol/Ethanol, [id number] 20:36:00 Test Item Value Reference Range Interpretation Comments Alcohol, Ethyl <0.01 g/dL 0.00-0.01 N Intoxicated 0 .080 g/dL (test code = ETOH) or more Prothrombin [id number] 20:00:00 Test Item Value Reference Range Interpretation Comments PT (test code = PT) 10.10 seconds 9.78-13.35 N INR (test code = INR) 0.88 Ratio 0.6-1.2 N Partial Thromboplastin [id number] 20:00:00 Test Item Value Reference Range Interpretation Comments aPTT (test code = PTT) 31.50 seconds 24.39-37.25 N CBC with [id number] 19:50:00 Test Item Value Reference Range Interpretation [...] code = ALYMPH) 2.2 K/cumm 0.5-4.6 N Bledsoe Abs (test code = AMONO) 0.4 K/cumm 0.0-1.2 N Eos Abs (test code = AEOS) 0.17 K/cumm 0.00-0.74 N Baso Abs (test code = ABASO) 0.0 K/cumm 0.00-0.21 N 67334& PELVIS W/O [id number] 17:36:28CT ABDOMEN AND PELVIS WITHOUT CONTRAST.CLINICAL HISTORY: [...]
[2022-10-01] MEDS ORDERED: Ringers Lactate 1,000 ML IV ONE ×2 (14:50→18:03)
[2022-10-01 18:03] LABS: Absolute Lymphocytes (CBC) 2.2 K/uL (0.7-4.9); Hematocrit 37.5 % (39.6-49.0); Lymphocytes % 22.3 % (15.3-44.8); MCV 88.2 fL (80-100); MPV 6.7 fL (7.6-11.3); RBC Red Blood Cell Count 4.26 M/uL (4.33-5.43)
[2022-10-01 18:04] LABS: Blood Morphology Comment NOT SEEN (NOT SEEN); Platelet Estimate DECR; White Blood Cell Scan OK (OK)
[2022-10-01 18:20] LABS: Albumin 3.5 g/dL (3.4-5.0); Bilirubin Total 0.2 mg/dL (0.2-1.0); Potassium 3.8 mmol/L (3.5-5.1); Protein, Total 7.2 g/dL (6.4-8.2)
--- NOTE | 2022-10-01 19:18 | EDPHYS ---
Physician Documentation [facility] Name: Rico Mcneill Age: 52 yrs Sex: Male : 1970 Arrival Date: 10/01/2022 Time: 14:10 Bed 6 Private MD: ED Physician Saad Alberto HPI: 10/01 14:30 This 52 yrs old Male presents to ER via Ambulatory with complaints of Pain All Over, jmm Blood Pressure Problem. 14:30 The patient presents to the emergency department with abdominal pain. Onset: The jmm symptoms/episode began/occurred gradually. Possible causes: unknown. The symptoms are aggravated by nothing. The symptoms are alleviated by nothing. Associated signs and symptoms: Pertinent positives:. Is a 52-year-old male with history of hypertension ileostomy the presents emerged department with complaints of increased diarrhea from his ostomy site. Patient request for bags to change. Patient also complains of generalized body aches, weakness and lightheadedness.. Historical: - Allergies: 14:14 NKDA; aa5 - PMHx: 14:14 Hypertensive disorder; ileostomy; aa5 - PSHx: 14:14 Small bowel resection with ileostomy; aa5 - Immunization history:: Adult Immunizations up to date. - Social history:: Smoking status: unknown. ROS: 14:30 Constitutional: Positive for body aches. jmm 14:30 Abdomen/GI: Positive for diarrhea. 14:30 All other systems are negative. Exam: 14:30 Constitutional: This is a well developed, well nourished patient who is awake, alert, jmm and in no acute distress. Head/Face: atraumatic. Eyes: EOMI, no conjunctival erythema appreciated ENT: Moist Mucus Membranes Neck: Trachea midline, Supple Chest/axilla: Normal chest wall appearance and motion. Cardiovascular: Regular rate and rhythm. No edema appreciated Respiratory: Normal respirations, no respiratory distress appreciated Abdomen/GI: Non distended Back: Normal ROM Skin: General appearance color normal MS/ Extremity: Moves all extremities, no obvious deformities appreciated, no edema noted to the lower extremities Neuro: Awake and alert Psych: Behavior is normal, Mood is normal, Patient is cooperative and pleasant Vital Signs: 14:15 BP 92 / 55; Pulse 110; Resp 19 S; Temp 99.1(TE); Pulse Ox 100% on R/A; Weight 65.77 kg aa5 (R); Height 6 ft. 1 in. (185.42 cm) (R); 16:30 BP 91 / 61; Pulse 95; Resp 17; Pulse Ox 98% ; bp 17:30 BP 98 / 71; Pulse 90; Resp 17; Pulse Ox 100% ; bp 21:26 BP 99 / 68; Pulse 90; Resp 18; Pulse Ox 96% on R/A; kl 14:15 Body Mass Index 19.13 (65.77 kg, 185.42 cm) aa5 MDM: 14:30 Patient medically screened. [facility] 19:15 Data reviewed: vital signs, nurses notes. Consideration of Admission/Observation [facility] Patient was admitted/placed on observation. Management of patient was discussed with the following: Andressa Higginbotham PA-C. I considered the following discharge prescriptions or medication management in the emergency department Medications were administered in the Emergency Department. See MAR. Counseling: I had a detailed discussion with the patient and/or guardian regarding: the historical points, exam findings, and any diagnostic results supporting the discharge/admit diagnosis, lab results, the need for further work-up and treatment in the hospital. ED course: Labs revealed signs of acute kidney injury. Patient so far given 2 L lactated Ringer's. Patient states feeling slightly better. Will observe patient for IV hydration, dehydration, acute kidney injury.. 10/01 17:15 Order name: CBC with Diff; Complete Time: 18:09 [facility] 10/01 17:15 Order name: CMP; Complete Time: 18:42 [facility] 10/01 17:15 Order name: Lipase; Complete Time: 18:42 [facility] 10/01 18:04 Order name: CBC Smear Scan; Complete Time: 18:09 [facility] 10/01 20:02 Order name: SARS RAPID tw5 10/01 20:34 Order name: SARS-COV-2 Antigen Rapid [facility] 10/01 14:31 Order name: Saline Lock; Complete Time: 15:30 [facility] 10/01 14:58 Order name: Misc. Order: bag change; Complete Time: 16:47 [facility] 10/01 16:41 Order name: Vital Signs; Complete Time: 16:47 [facility] 10/01 17:15 Order name: Labs collected and sent; Complete Time: 18:01 [facility] Administered Medications: 15:32 Drug: Lactated Ringers Solution 1000 ml Route: IV; Rate: 1000 bolus; Site: left forearm;vg1 17:45 Drug: Lactated Ringers Solution 1000 ml Route: IV; Rate: 1000 ml/hr; Site: left forearm;bp Disposition: 19:22 Co-signature as Attending Physician, Saad Alberto DO I was immediately available on-site ms3 in the Emergency Department for consultation in the care of the patient. Disposition Summary: 10/01/22 19:17 Hospitalization Ordered Hospitalization Status: Observation jmm Location: Telemetry/MedSurg (observation) jmm Condition: Stable jmm Problem: an acute exacerbation jmm Symptoms: are unchanged jmm Bed/Room Type: Standard jmm Provider: Cindy Chapa(10/01/22 19:50) sb4 Room Assignment: [facility](10/01/22 20:50) Diagnosis - Acute kidney injury jmm - Dehydration jmm - Diarrhea jmm Forms: - Medication Reconciliation Form jmm - SBAR form jmm Signatures: Dispatcher [employer] EDMS Miah Plummer PA PA jmm Calderon, Audri, RN RN aa5 Annia Blas, RN RN Raffaele Camacho, RN RN Tamera Archer, RN RN vg1 Saad Alberto DO DO ms3 Denice Higginbotham PA-C PA-C sb4 Corrections: (The following items were deleted from the chart) 18:54 17:15 Abdomen Pelvis W Con+CT.RAD.BRZ ordered. EDMS EDMS 19:50 19:17 Denice Higginbotham sb4 20:50 19:17 jmm cg
--- NOTE | 2022-10-01 19:18 | ER ---
Nurse's Notes [facility] Name: Rico Mcneill Age: 52 yrs Sex: Male : 1970 Arrival Date: 10/01/2022 Time: 14:10 Bed 6 Private MD: Diagnosis: Acute kidney injury;Dehydration;Diarrhea Presentation: 10/01 14:15 Chief complaint: Patient states: "I need more colostomy bags and I think my blood aa5 pressure is low again because I am hurting all over". Coronavirus screen: At this time, the client does not indicate any symptoms associated with coronavirus-19. Ebola Screen: Patient denies travel to an Ebola-affected area in the 21 days before illness onset. Initial Sepsis Screen: Does the patient meet any 2 criteria? HR > 90 bpm. Does the patient have a suspected source of infection? No. Patient's initial sepsis screen is negative. Risk Assessment: Do you want to hurt yourself or someone else? Patient reports no desire to harm self or others. Onset of symptoms was October 01, 2022. 14:15 Method Of Arrival: Ambulatory aa5 14:15 Acuity: OCTAVIO 3 aa5 Triage Assessment: 14:15 General: Appears in no apparent distress. comfortable, Behavior is calm, cooperative, bp appropriate for age. Pain: Denies pain. EENT: No deficits noted. Neuro: No deficits noted. Cardiovascular: No deficits noted. Respiratory: No deficits noted. GI: is clean and dry. Ostomy appliance is not intact. : No signs and/or symptoms were reported regarding the genitourinary system. Derm: No deficits noted. Musculoskeletal: No deficits noted. Historical: - Allergies: 14:14 NKDA; aa5 - PMHx: 14:14 Hypertensive disorder; ileostomy; aa5 - PSHx: 14:14 Small bowel resection with ileostomy; aa5 - Immunization history:: Adult Immunizations up to date. - Social history:: Smoking status: unknown. Screenin:15 [facility] ED Fall Risk Assessment (Adult) History of falling in the last 3 months, bp including since admission No falls in past 3 months (0 pts). Abuse screen: Denies threats or abuse. Denies injuries from another. Nutritional screening: No deficits noted. Tuberculosis screening: No symptoms or risk factors identified. Assessment: 14:15 General: SEE TRIAGE NOTE. bp 16:15 Reassessment: OSTOMY SUPPLIES FROM HOUSE SUP. bp 19:30 Reassessment: Patient appears in no apparent distress at this time. Patient and/or kl family updated on plan of care and expected duration. Pain level reassessed. Patient is alert, oriented x 3, equal unlabored respirations, skin warm/dry/pink. Patient states feeling better. eating sandwich tolerating well. 20:30 Reassessment: Patient appears in no apparent distress at this time. Patient and/or kl family updated on plan of care and expected duration. Pain level reassessed. Patient is alert, oriented x 3, equal unlabored respirations, skin warm/dry/pink. Patient states feeling better. Vital Signs: 14:15 BP 92 / 55; Pulse 110; Resp 19 S; Temp 99.1(TE); Pulse Ox 100% on R/A; Weight 65.77 kg aa5 (R); Height 6 ft. 1 in. (185.42 cm) (R); 16:30 BP 91 / 61; Pulse 95; Resp 17; Pulse Ox 98% ; bp 17:30 BP 98 / 71; Pulse 90; Resp 17; Pulse Ox 100% ; bp 21:26 BP 99 / 68; Pulse 90; Resp 18; Pulse Ox 96% on R/A; kl 14:15 Body Mass Index 19.13 (65.77 kg, 185.42 cm) aa5 ED Course: 14:10 Patient arrived in ED. as 14:14 Miah Plummer PA is PHCP. [facility] 14:14 Saad Alberto DO is Attending Physician. [facility] 14:14 Arm band placed on. aa5 14:16 Triage completed. aa5 14:17 Drea Lucas, RN is Primary Nurse. ap3 15:18 Missed attempt(s): 20 gauge in right forearm. vg1 15:23 Missed attempt(s): 22 gauge in right forearm. vg1 15:30 Inserted saline lock: 22 gauge in left forearm, using aseptic technique. em1 16:15 Patient has correct armband on for positive identification. Bed in low position. Call bp light in reach. Side rails up X2. 19:16 Denice Higginbotham PA-C is Hospitalizing Provider. [facility] 19:50 Cindy Chapa MD is Hospitalizing Provider. sb4 21:28 No provider procedures requiring assistance completed. Patient admitted, IV remains in kl place. Administered Medications: 15:32 Drug: Lactated Ringers Solution 1000 ml Route: IV; Rate: 1000 bolus; Site: left forearm;vg1 17:45 Drug: Lactated Ringers Solution 1000 ml Route: IV; Rate: 1000 ml/hr; Site: left forearm;bp Medication: 16:15 VIS not applicable for this client. bp Intake: 20:58 IV: 1000ml; Total: 1000ml. bp Output: 20:58 Stool: 1700 (Loose Stool) ; Total: 0ml. bp Outcome: 19:17 Decision to Hospitalize by Provider. [facility] 21:28 Admitted to Med/surg accompanied by tech, room 224. 21:28 Condition: stable 21:28 Discharge instructions given to patient, Instructed on the need for admit, Demonstrated understanding of instructions. 21:59 Patient left the ED. Signatures: Marj Ricci, BRITTNY RN Miah Plummer PA PA [facility] Clover Diaz Eric em1 Julissa Roy, RN RN aa5 Raffaele Chan RN RN Drea Cool RN RN jose3 Tamera Blas RN RN vg1 Denice Higginbotham PA-C PATello sb4 Corrections: (The following items were deleted from the chart) 14:17 14:15 Acuity: OCTAVIO 3 aa5 aa5 14:17 14:15 Pulse 110bpm; Resp 19bpm; Spontaneous; Pulse Ox 100% RA; Temp 99.1F Temporal; aa5 65.77 kg Reported; Height 6 ft. 1 in. Reported; BMI: 19.1; aa5 14:18 14:15 Acuity: OCTAVIO 4 aa5 aa5 14:18 14:15 Pulse 110bpm; Resp 19bpm; Spontaneous; Pulse Ox 100% RA; Temp 99.1F Temporal; aa5 65.77 kg Reported; Height 6 ft. 1 in. Reported; BMI: 19.1; aa5
[2022-10-01 20:33] LABS: SARS-CoV-2 Antigen Rapid Res Negative (Negative)
[2022-10-01] MEDS: NA CHLORIDE 0.9% 1,000 ML IV SCH (21:27)
[2022-10-01] MEDS ORDERED: ONDANSETRON 4 MG/2 ML VIAL IV PRN (21:27)
[2022-10-01 22:24] VITALS: BMI 20.5
[2022-10-01 22:35] VITALS: O2SAT 100
--- NOTE | 2022-10-01 23:29 | P.HP ---
Certification for Inpatient Patient admitted to: Observation With expected LOS: <2 Midnights Patient will require the following post-hospital care: None Practitioner: I am a practitioner with admitting privileges, knowledge of patient current condition, hospital course, and medical plan of care. Services: Services provided to patient in accordance with Admission requirements found in Title 42 Section 412.3 of the Code of Federal Regulations Patient History Date of Service: 10/02/22 Reason for admission: ALMA, Dehydration History of Present Illness: Patient is a 52 year old male with past medical history of bipolar disorder, hypotension, hypothyroidism, and small bowel obstruction s/p ileostomy (~1999- 2000) who presented to the emergency department with complaints of "pain all over" and diarrhea. Patient is homeless and frequently gets dehydrated. His labs are significant for sodium 130, CO2 20, BUN 54, creatinine 2.2. He received 2 L of lactated Ringer's in the emergency department. Vital signs have been stable. ED provider wishes to admit patient for observation. Allergies No Known Drug Allergies Allergy (Verified 09/04/22 02:36) Unknown Home Medications: Midodrine HCl [Proamatine*] 5 mg PO TID #90 tab 09/13/22 - Past Medical/Surgical History Diabetic: No -: Hypothyroidism -: Bipolar Disorder -: HTN -: bowel obstruction -: Colectomy -: Ileostomy Psychosocial/ Personal History: Patient is homeless. - Family History Father -: Cancer Mother -: Heart disease - Social History Smoking Status: Former smoker Alcohol use: No CD- Drugs: No Caffeine use: Yes Place of Residence: Homeless Review of Systems General: As per HPI Gastrointestinal: Diarrhea Physical Examination - Vital Signs Temperature: 97.3 F Blood Pressure: 99/68 Pulse: 126 Respirations: 26 Pulse Ox (%): 99 - Physical Exam General: Alert, In no apparent distress HEENT: Atraumatic, Other (Dry mucous membranes), EOMI, Sclerae nonicteric Neck: Supple, 2+ carotid pulse no bruit Respiratory: Clear to auscultation bilaterally, Normal air movement Cardiovascular: Regular rate/rhythm, Normal S1 S2 Gastrointestinal: Normal bowel sounds, No tenderness, Other (Colostomy) Musculoskeletal: No tenderness Integumentary: No rashes Neurological: Normal speech, Normal affect - Studies Laboratory Data (last 24 hrs) 10/01/22 17:50: Sodium 130 L, Potassium 3.8, BUN 54 H, Creatinine 2.22 H, Glucose 106, Total Bilirubin 0.2, AST 23, ALT 30, Alkaline Phosphatase 103, Lipase 253 10/01/22 17:50: WBC 10.10, Hgb 12.4 L, Hct 37.5 L, Plt Count 363 Assessment and Plan - Problems (Diagnosis) (1) Dehydration Current Visit: Yes Status: Acute (2) Acute kidney injury Current Visit: Yes Status: Acute (3) History of ileostomy Current Visit: Yes Status: Chronic (4) Hyponatremia Current Visit: Yes Status: Acute (5) Hypotension Current Visit: Yes Status: Chronic Qualifiers: Hypotension type: unspecified hypotension type Qualified Code(s): I95.9 - Hypotension, unspecified (6) Hypothyroidism Current Visit: Yes Status: Chronic Qualifiers: Hypothyroidism type: unspecified Qualified Code(s): E03.9 - Hypothyroidism, unspecified - Plan Patient is admitted for further management of ALMA secondary to dehydration. Continue IV hydration. Recheck kidney function in the morning. Monitor BP. Appears stable. Replete electrolytes per protocol. Discharge Plan: Other Plan to discharge in: 24 Hours - Advance Directives Does patient have a Living Will: No Does patient have a Durable POA for Healthcare: No - Code Status/Comfort Care Code Status Assessed: Yes Code Status: Full Code Physician Review: Patient Assessed, Agree with Above Assessment and Plan Critical Care: No Time Spent Managing Pts Care (In Minutes): 50
[2022-10-02 03:45] LABS: Absolute Lymphocytes (CBC) 2.5 K/uL (0.7-4.9); Hematocrit 37.1 % (39.6-49.0); Lymphocytes % 27.7 % (15.3-44.8); RBC Red Blood Cell Count 4.17 M/uL (4.33-5.43)
[2022-10-02 03:56] LABS: Magnesium 2.4 mg/dL (1.6-2.4); Phosphorus 4.4 mg/dL (2.5-4.9); Potassium 3.7 mmol/L (3.5-5.1)
[2022-10-02] MEDS: NA CHLORIDE 0.9% 1,000 ML IV SCH ×2 (09:17→16:06)
[2022-10-03] MEDS: NA CHLORIDE 0.9% 1,000 ML IV SCH ×2 (01:53→08:35)
[2022-10-03 13:49] VITALS: BP 106/60; TEMP 97.8
== END 2022-10-03 15:47 | disposition home or self-care (01) ==
LOC: ER 14:07 → ERHOLD 19:36 → 2ND 21:29
PROVIDERS: ADMIT Hospitalist; ATTEND Hospitalist
DX: N17.9 Acute kidney failure, unspecified (principal); E86.0 Dehydration; E87.1 Hypo-osmolality and hyponatremia; I95.9 Hypotension, unspecified; E03.9 Hypothyroidism, unspecified; F31.9 Bipolar disorder, unspecified; Z93.2 Ileostomy status; Z59.00 Homelessness unspecified; Z87.891 Personal history of nicotine dependence; Z20.822 Contact with and (suspected) exposure to COVID-19
CPT/HCPCS: 36415; 80048; 80053; 83690; 83735; 84100; 85025; 87811; 99285; G0378; J7030; J7120

== ENCOUNTER 2022-10-09 19:09 | Emergency (ER) | payer SELFPAY ==
--- OUTSIDE RECORDS SUMMARY | 2022-10-09 19:27 | XMS REPORT | Continuity of Care Document ---
:1970 Author Organization [facility] t Address [address] [place] [address] [address] [place] [address] Care Team Providers Name Role Phone UNKNOWN, REFFERING Primary Care Physician Unavailable Coco Nova Attending Clinician Unavailable Mark Perea Attending Clinician Unavailable Steve Urias Attending Clinician Unavailable YESSI RAMOS Attending Clinician Unavailable NELSON GARCIA Attending Clinician Unavailable KENDRA CARDENAS Attending Clinician Unavailable Elisha CAPONE, Aryan Garrison Attending Clinician [phone] Marty CAPONE, Dee Dee Nelson Attending Clinician Shiela CAPONE, EduarebenezerZander Attending Clinician Mick CAPONE, Pao Emerson Attending Clinician Anya CAPONE, León Shaw Attending Clinician [phone] LEÓN JOYNER Attending Clinician Unavailable Raven CAPONE, Teddy Attending Clinician Bernabe Calvert MD Attending Clinician Rufino Lazaro MD Attending Clinician Kobe Blake MD Attending Clinician TEDDY WILSON Attending Clinician Unavailable RUFINO LAZARO Attending Clinician Unavailable OSCAR GUAMAN Attending Clinician Unavailable Marco Mcintosh MD Attending Clinician Meghan Islas MD Attending Clinician Teresa Alves MD Attending Clinician MEGHAN ISLAS Attending Clinician Unavailable Dwain Pacheco Attending Clinician Unavailable Raymon Martin MD Attending Clinician Karin Bassett MD Attending Clinician Darrion Craig MD Attending Clinician Steve Graham Attending Clinician [phone] KARIN BASSETT Attending Clinician Unavailable Bert Reed MD Attending Clinician Helene Ring MD Attending Clinician Merissa Malhotra Attending Clinician HELENE RING Attending Clinician Unavailable Raffaele Levi Attending Clinician Unavailable JuanJ ose Avendaño Attending Clinician Unavailable Gabriella Hewitt Attending [...] dness dness 7-14 [facility] 00 [facility] Altered Altered Disease Active Combs bowel bowel 5-29 Health eliminatio eliminatio 00:00: [...] [facility] prolapse prolapse 00:00: Medica l 00 [facility] Disorder Disorder Disease Active Harri s of stoma of stoma 9-15 Health 00:00: 00 Dehydratio Dehydratio Disease Active H arris n n Health Encounter Encounter Disease Active Compa ris for ostomy for ostomy He [facility] care care education education ALMA (acute [...] Allergie 6- Rodriguez s 00:00: Health 00 [facility] No Known DA Active U 2020-08 [facility] Allergie 1-29 [facility] 00:00: d 00 [facility] No Known DA Active U [facility] Allergie 9-05 Clear s 00:00: [facility] No Known DA Active U [facility] Allergie 9-05 Clear s 00:00: [facility] No Known DA Active U 2019-0 [facility] Allergie 7-03 Clear s 00:00: [facility] No Known DA Active U [facility] Allergie 5-14 Clear s 00:00: [facility] No Known DA Active U [facility] Allergie 7-07 [facility] 00:00: d 00 [facility] NO KNOWN Allergy Active [facility] ALLERGIE S [...] [facility] exposure 00:00:00 [facility]00:00 [facility] Center History SDMI Food 2017-04-14 2017-04-14 1 [facility] Worry 00:00:00 00:00:00 History SDMI Food 2017-04-14 2017-04-14 1 [facility] Scarcity 00:00:00 00:00:00 Sex Assigned At [address] [facility] Smoking Status Start Date Stop Date Source Never smoker [facility] Medications Ordered Filled Start Stop Current Ordering Indication Dosage Frequency Signature Comments Components Source Medication Medication Date Date Medication? Clinician (SIG) Name Name ferrous No Altered 325mg QD Take 1 [...] intestinal ostomy loperamide 2021- No Altered 4mg Q.75782082 Take 2 [facility] (IMODIUM) 2 02-20- bowel [id number] capsules Health mg capsule 00:00: 23:59 elimination [...] intestinal ostomy loperamide 2021- No Altered 4mg Q.52193817 Take 2 [facility] (IMODIUM) 2 02-20-30 bowel [id number] capsules Health mg capsule 00:00: 23:59 elimination [...] intestinal ostomy loperamide 2021- No Altered 4mg Q.[id number] Take 2 [facility] (IMODIUM) 2 02-20 bowel [id number] capsules Health mg capsule 00:00: 23:59 elimination [...] intestinal ostomy loperamide 2021- No Altered 4mg Q.46233483 Take 2 [facility] (IMODIUM) 2 02-20-30 bowel [id number] capsules Health mg capsule 00:00: 23:59 elimination [...] intestinal ostomy loperamide 2021- No Altered 4mg Q.73699027 Take 2 [facility] (IMODIUM) 2 02-2030 bowel [id number] capsules Health mg capsule 00:00: 23:59 elimination [...] intestinal ostomy loperamide 2021- No Altered 4mg Q.03406106 Take 2 [facility] (IMODIUM) 2 02-20 bowel [id number] capsules Health mg capsule 00:00: 23:59 elimination [...] intestinal ostomy loperamide 2021- No Altered 4mg Q.48623180 Take 2 [facility] (IMODIUM) 2 02-20-30 bowel [id number] capsules Health mg capsule 00:00: 23:59 elimination [...] intestinal ostomy loperamide 2021- No Altered 4mg Q.75669902 Take 2 [facility] (IMODIUM) 2 02-20 bowel [id number] capsules Health mg capsule 00:00: 23:59 elimination [...] intestinal ostomy loperamide 2021- No Altered 4mg Q.43864454 Take 2 [facility] (IMODIUM) 2 02-20 bowel [id number] capsules Health mg capsule 00:00: 23:59 elimination [...] intestinal ostomy loperamide 2021- No Altered 4mg Q.22106441 Take 2 [facility] (IMODIUM) 2 02-20 bowel [id number] capsules Health mg capsule 00:00: 23:59 elimination [...] intestinal ostomy loperamide 2021- No Altered 4mg Q.23288238 Take 2 [facility] (IMODIUM) 2 02-20 bowel [id number] capsules Health mg capsule 00:00: 23:59 elimination [...] intestinal ostomy loperamide 2021- No Altered 4mg Q.03043000 Take 2 [facility] (IMODIUM) 2 02-20 bowel [id number] capsules Health mg capsule 00:00: 23:59 elimination [...] intestinal ostomy loperamide 2021- No Altered 4mg Q.22744379 Take 2 [facility] (IMODIUM) 2 02-20 bowel [id number] capsules Health mg capsule 00:00: 23:59 elimination [...] intestinal ostomy loperamide 2021- No Altered 4mg Q.59791190 Take 2 [facility] (IMODIUM) 2 02-20 bowel [id number] capsules Health mg capsule 00:00: 23:59 elimination [...] intestinal ostomy loperamide 2021- No Altered 4mg Q.88439641 Take 2 [facility] (IMODIUM) 2 02-20 bowel [id number] capsules Health mg capsule 00:00: 23:59 elimination [...] intestinal ostomy loperamide 2021- No Altered 4mg Q.98606800 Take 2 [facility] (IMODIUM) 2 02-20 bowel [id number] capsules Health mg capsule 00:00: 23:59 elimination [...] intestinal ostomy loperamide 2021- No Altered 4mg Q.13995526 Take 2 [facility] (IMODIUM) 2 02-2030 bowel [id number] capsules Health mg capsule 00:00: 23:59 elimination [...] intestinal ostomy loperamide 2021- No Altered 4mg Q.56052573 Take 2 [facility] (IMODIUM) 2 02-20-30 bowel [id number] capsules Health mg capsule 00:00: 23:59 elimination [...] intestinal ostomy loperamide 2021- No Altered 4mg Q.13457545 Take 2 [facility] (IMODIUM) 2 02-20-30 bowel [id number] capsules Health mg capsule 00:00: 23:59 elimination [...] intestinal ostomy loperamide 2021- No Altered 4mg Q.95306540 Take 2 [facility] (IMODIUM) 2 02-20-30 bowel [id number] capsules Health mg capsule 00:00: 23:59 elimination [...] intestinal ostomy loperamide 2021- No Altered 4mg Q.24124833 Take 2 [facility] (IMODIUM) 2 02-20-30 bowel [id number] capsules Health mg capsule 00:00: 23:59 elimination [...] intestinal ostomy loperamide 2021- No Altered 4mg Q.90984053 Take 2 [facility] (IMODIUM) 2 02-20 07-30 bowel [id number] capsules Health mg capsule 00:00: 23:59 elimination [...] No Altered 1{packe Take 1 [facility] (METAMUCIL) 630 07-30 bowel t} Packet by [facility]alth 6 gram PwPk 00:00: 23:59 elimination mouth 00 :00 due to intestinal ostomy loperamide 2021- No Altered 4mg Q.33919403 Take 2 [facility] (IMODIUM) 2 02-20 07-30 bowel [id number] capsules Health mg capsule 00:00: 23:59 elimination [...] 3 oral liquid 00 times daily nutritional 2022-0 Yes Malnutritio 1{packa Take 1 [facility] supplemment [...] [facility] (METAMUCIL) 02-1130 bowel t} [facility] 6 gram PwPk 00:00: 00:00 elimination mouth 00 :00 due to intestinal ostomy psyllium 2021- No Altered 1{packe Take 1 [facility] (METAMUCIL) 02-1130 bowel t} [facility] 6 gram PwPk 00:00: 00:00 elimination mouth 00 :00 due to intestinal ostomy psyllium 2021- No Altered 1{packe Take 1 [facility] (METAMUCIL) 02-1130 bowel t} Packet by [facility] 6 gram PwPk 00:00: 00:00 elimination mouth 00 :00 due to intestinal ostomy psyllium 2021- No Altered 1{packe Take 1 [facility] (METAMUCIL) 02-11 bowel t} Packet by [facility] 6 gram PwPk 00:00: 00:00 elimination mouth 00 :00 due to intestinal ostomy psyllium 2021- No Altered 1{packe Take 1 [facility] (METAMUCIL) 02-1130 bowel t} Packet by [facility] 6 gram PwPk 00:00: 00:00 elimination mouth 00 :00 due to intestinal ostomy psyllium 2021- No Altered 1{packe Take 1 [facility] (METAMUCIL) 02-1130 bowel t} Packet by [facility] 6 gram PwPk 00:00: 00:00 elimination mouth 00 :00 due to intestinal ostomy psyllium 2021- No Altered 1{packe Take 1 [facility] (METAMUCIL) 02-1130 bowel t} Packet by [facility] 6 gram PwPk 00:00: 00:00 elimination mouth 00 :00 due to intestinal ostomy psyllium 2021- No Altered 1{packe Take 1 [facility] (METAMUCIL) 02-1130 bowel t} [facility] 6 gram PwPk 00:00: 00:00 elimination mouth 00 :00 due to intestinal ostomy psyllium 2021- No Altered 1{packe Take 1 [facility] (METAMUCIL) 02-1130 bowel t} Packet by [facility] 6 gram PwPk 00:00: 00:00 elimination mouth 00 :00 due to intestinal ostomy psyllium 2021- No Altered 1{packe Take 1 [facility] (METAMUCIL) 02-1130 bowel t} Packet by deborah 6 gram [...] H arris oxide 01-21 bowel tablets by [facility] (MAG-OX) 00:00: 23:59 elimination mouth 2 400 [...] arris oxide 5-23 03-30 bowel tablets by [facility] (MAG-OX) 00:00: 23:59 elimination mouth 2 400 mg 00 :00 due to times (241.3 mg intestinal daily for magnesium) ostomy 60 days tablet multivitami 2021- No Altered 1{tbl} QD Take 1 [facility] n with 01-21-30 bowel tablet by [facility] folic acid 00:00: 23:59 elimination mouth (THERA) 400 00 :00 due to daily for mcg tablet intestinal 60 days ostomy ascorbic 2021- No Altered 250mg QD Take 1 [facility]omin rris acid, 01-21-30 bowel tablet by [facility] vitamin C, 00:00: 23:59 elimination mouth 250 mg 00 :00 due to daily for tablet intestinal 60 days ostomy magnesium 2021- No Altered 800mg Q.5D Take 2 H arris oxide 01-21-30 bowel tablets by [facility] (MAG-OX) 00:00: 23:59 elimination mouth 2 400 mg 00 :00 due to times (241.3 mg intestinal daily for magnesium) ostomy 60 days tablet multivitami 2021- No Altered 1{tbl} QD Take 1 [facility] n with 01-21-30 bowel tablet by [facility] folic acid 00:00: 23:59 elimination mouth (THERA) 400 00 :00 due to daily for mcg tablet intestinal 60 days ostomy ascorbic 2021- No Altered 250mg QD Take 1 Momin rris acid, 01-21-30 bowel tablet by [facility] vitamin C, 00:00: 23:59 elimination mouth 250 mg 00 :00 due to daily for tablet intestinal 60 days ostomy magnesium 2021- No Altered 800mg Q.5D Take 2 H arris oxide 5-23 03-30 bowel tablets by [facility] (MAG-OX) 00:00: 23:59 elimination mouth 2 400 mg 00 :00 due to times (241.3 mg intestinal daily for magnesium) ostomy 60 days tablet multivitami 2021- No Altered 1{tbl} QD Take 1 [facility] n with 5-23 03-30 bowel tablet by [facility] folic acid 00:00: 23:59 elimination mouth (THERA) 400 00 :00 due to daily for mcg tablet intestinal 60 days ostomy ascorbic 2021- No Altered 250mg QD Take 1 [facility]omin rris acid, 01-21-30 bowel tablet by [facility] vitamin C, 00:00: 23:59 elimination mouth 250 mg 00 :00 due to daily for tablet intestinal 60 days ostomy magnesium 2021- No Altered 800mg Q.5D Take 2 H arris oxide 01-21-30 bowel tablets by [facility] (MAG-OX) 00:00: 23:59 elimination mouth 2 400 mg 00 :00 due to times (241.3 mg intestinal daily for magnesium) ostomy 60 days tablet multivitami 2021- No Altered 1{tbl} QD Take 1 [facility] n with 01-21 bowel tablet by [facility] folic acid 00:00: 23:59 elimination mouth (THERA) 400 00 :00 due to daily for mcg tablet intestinal 60 days ostomy ascorbic 2021- No Altered 250mg QD Take 1 [facility] rris acid, 01-21 bowel tablet by [facility] vitamin C, 00:00: 23:59 elimination mouth 250 mg 00 :00 due to daily for tablet intestinal 60 days ostomy magnesium 2021- No Altered 800mg Q.5D Take 2 H arris oxide 01-2130 bowel tablets by [facility] (MAG-OX) 00:00: 23:59 elimination mouth 2 400 mg 00 :00 due to times (241.3 mg intestinal daily for magnesium) ostomy 60 days tablet multivitami 2021- No Altered 1{tbl} QD Take 1 [facility] n with 01-2130 bowel tablet by [facility] folic acid 00:00: 23:59 elimination mouth (THERA) 400 00 :00 due to daily for mcg tablet intestinal 60 days ostomy ascorbic 2021- No Altered 250mg QD Take 1 [facility] rris acid, 01-21-30 bowel tablet by [facility] vitamin C, 00:00: 23:59 elimination mouth 250 mg 00 :00 due to daily for tablet intestinal 60 days ostomy magnesium 2021- No Altered 800mg Q.5D Take 2 H arris oxide -23 03-30 bowel tablets by [facility] (MAG-OX) 00:00: 23:59 elimination mouth 2 400 mg 00 :00 due to times (241.3 mg intestinal daily for magnesium) ostomy 60 days tablet multivitami 2021- No Altered 1{tbl} QD Take 1 [facility] n with 01-21-30 bowel tablet by [facility] folic acid 00:00: 23:59 elimination mouth (THERA) 400 00 :00 due to daily for mcg tablet intestinal 60 days ostomy ascorbic 2021- No Altered 250mg QD Take 1 [facility]omin rris acid, 01-21 bowel tablet by [facility] vitamin C, 00:00: 23:59 elimination mouth 250 mg 00 :00 due to daily for tablet intestinal 60 days ostomy magnesium 2021- No Altered 800mg Q.5D Take 2 H arris oxide 01-21 bowel tablets by [facility] ([facility] 00:00: 23:59 elimination mouth 2 400 mg 00 :00 due to times (241.3 mg intestinal daily for magnesium) ostomy 60 days tablet multivitami 2021- No Altered 1{tbl} QD Take 1 [facility] n with 01-21 bowel tablet by [facility] folic acid 00:00: 23:59 elimination mouth (THERA) 400 00 :00 due to daily for mcg tablet intestinal 60 days ostomy ascorbic 2021- No Altered 250mg QD Take 1 [facility]omin rris acid, 01-21 bowel tablet by [facility] vitamin C, 00:00: 23:59 elimination mouth 250 mg 00 :00 due to daily for tablet intestinal 60 days ostomy magnesium 2021- No Altered 800mg Q.5D Take 2 H arris oxide 01-2130 bowel tablets by [facility] (MAG-OX) 00:00: 23:59 elimination mouth 2 400 mg 00 :00 due to times (241.3 mg intestinal daily for magnesium) ostomy 60 days tablet multivitami 2021- No Altered 1{tbl} QD Take 1 [facility] n with 01-21-30 bowel tablet by [facility] folic acid 00:00: 23:59 elimination mouth (THERA) 400 00 :00 due to daily for mcg tablet intestinal 60 days ostomy ascorbic 2021- No Altered 250mg QD Take 1 [facility]omin rris acid, 5-31 07-30 bowel tablet by [facility] vitamin C, 00:00: 23:59 elimination mouth 250 mg 00 :00 due to daily for tablet intestinal 60 days ostomy magnesium 2021- No Altered 800mg Q.5D Take 2 H arris oxide 01-21-30 bowel tablets by [facility] (MAG-OX) 00:00: 23:59 elimination mouth 2 400 mg 00 :00 due to times (241.3 mg intestinal daily for magnesium) ostomy 60 days tablet multivitami 2021- No Altered 1{tbl} QD Take 1 [facility] n with 01-21-30 bowel tablet by [facility] folic acid 00:00: 23:59 elimination mouth (THERA) 400 00 :00 due to daily for mcg tablet intestinal 60 days ostomy ascorbic 2021- No Altered 250mg QD Take 1 [facility]omin rris acid, 01-21 bowel tablet by [facility] vitamin C, 00:00: 23:59 elimination mouth 250 mg 00 :00 due to daily for tablet intestinal 60 days ostomy magnesium 2021- No Altered 800mg Q.5D Take 2 H arris oxide 01-21-30 bowel tablets by [facility] (MAG-OX) 00:00: 23:59 elimination mouth 2 400 mg 00 :00 due to times (241.3 mg intestinal daily for magnesium) ostomy 60 days tablet multivitami 2021- No Altered 1{tbl} QD Take 1 [facility] n with 01-2130 bowel tablet by [facility] folic acid 00:00: 23:59 elimination mouth (THERA) 400 00 :00 due to daily for mcg tablet intestinal 60 days ostomy ascorbic 2021- No Altered 250mg QD Take 1 [facility]omin rris acid, 01-2130 bowel tablet by [facility] vitamin C, 00:00: 23:59 elimination mouth 250 mg 00 :00 due to daily for tablet intestinal 60 days ostomy magnesium 2021- No Altered 800mg Q.5D Take 2 H arris oxide -23 03-30 bowel tablets by [facility] (MAG-OX) 00:00: 23:59 elimination mouth 2 400 [...] acid, 01-21-30 bowel tablet by [facility] vitamin C, 00:00: 23:59 elimination mouth 250 mg 00 :00 due to daily for tablet intestinal 60 days ostomy magnesium 2021- No Altered 800mg Q.5D Take 2 H arris oxide 01-21-30 bowel tablets by [facility] (MAG-OX) 00:00: 23:59 elimination mouth 2 400 mg 00 :00 due to times (241.3 mg intestinal daily for magnesium) ostomy 60 days tablet multivitami 2021- No Altered 1{tbl} QD Take 1 [facility] n with 01-2130 bowel tablet by [facility] folic acid 00:00: 23:59 elimination mouth (THERA) 400 00 :00 due to daily for mcg tablet intestinal 60 days ostomy ascorbic 2021- No Altered 250mg QD Take 1 [facility]omin rris acid, 01-2130 bowel tablet by [facility] vitamin C, 00:00: 23:59 elimination mouth 250 mg 00 :00 due to daily for tablet intestinal 60 days ostomy magnesium 2021- No Altered 800mg Q.5D Take 2 H arris oxide 01-21-30 bowel tablets by [facility] (MAG-OX) 00:00: 23:59 elimination mouth 2 400 [...] acid, 01-21-30 bowel tablet by [facility] vitamin C, 00:00: 23:59 elimination mouth 250 [...] n with 5- 07-30 bowel tablet by [facility] folic acid 00:00: 23:59 elimination mouth (THERA) 400 00 :00 due to daily for mcg tablet intestinal 60 days ostomy ascorbic 2021- No Altered 250mg QD Take 1 [facility] rris acid, -23 03-30 bowel tablet by [facility] vitamin C, 00:00: 23:59 elimination mouth 250 [...] Momin rris acid, 01-21-30 bowel tablet by [facility] vitamin C, 00:00: 23:59 elimination mouth 250 [...] mcg tablet intestinal 60 days ostomy ascorbic 2022-0 2022- No Altered 250mg QD Take 1 [facility] rris acid, -23 03-30 bowel tablet by [facility] vitamin C, 00:00: 23:59 elimination mouth 250 mg 00 :00 due to daily for tablet intestinal 60 days ostomy magnesium 2021- No Altered 800mg Q.5D Take 2 H arris oxide 5- 07-30 bowel tablets by [facility] (MAG-OX) 00:00: 23:59 elimination mouth 2 400 mg 00 :00 due to times (241.3 mg intestinal daily for magnesium) ostomy 60 days tablet multivitami 2021- No Altered 1{tbl} QD Take 1 [facility] n with 01-21-30 bowel tablet by [facility] folic acid 00:00: 23:59 elimination mouth (THERA) 400 00 :00 due to daily for mcg tablet intestinal 60 days ostomy ascorbic 2021- No Altered 250mg QD Take 1 [facility]omin rris acid, 01-21-30 bowel tablet by [facility] vitamin C, 00:00: 23:59 elimination mouth 250 [...] -23 03-30 bowel tablet by [facility] folic acid 00:00: 23:59 elimination mouth (THERA) 400 00 :00 due to daily for mcg tablet intestinal 60 days ostomy ascorbic 2021- No Altered 250mg QD Take 1 [facility]omin rris acid, -23 03-30 bowel tablet by [facility] vitamin C, 00:00: 23:59 elimination mouth 250 mg 00 :00 due to daily for tablet intestinal 60 days ostomy magnesium 2021- No Altered 800mg Q.5D Take 2 H arris oxide 5- 07-30 bowel tablets by [facility] (MAG-OX) 00:00: 23:59 elimination mouth 2 400 [...] acid, 01-21 bowel tablet by [facility] vitamin C, 00:00: 23:59 elimination mouth 250 [...] acid, 01-21 bowel tablet by [facility] vitamin C, 00:00: 23:59 elimination mouth 250 [...] days ostomy loperamide 2021- No Altered 4mg Q.03449888 Take 2 [facility] (IMODIUM) 2 - 06-30 bowel [id number] capsules Health mg capsule 00:00: 00:00 elimination [...] days ostomy loperamide 2021- No Altered 4mg Q.56437092 Take 2 [facility] (IMODIUM) 2 01-21-30 bowel [id number] capsules Health mg capsule 00:00: 00:00 elimination [...] days ostomy loperamide 2021- No Altered 4mg Q.87130241 Take 2 [facility] (IMODIUM) 2 - 06-30 bowel [id number] capsules Health mg capsule 00:00: 00:00 elimination [...] QD Take 1 Compa ris sulfate 325 5-30 bowel tablet by [facility] mg (65 mg 00:00: 00:00 elimination mouth iron) 00 :00 due to daily for tablet intestinal 60 days ostomy loperamide 2021- No Altered 4mg Q.53302086 Take 2 [facility] (IMODIUM) 2 --30 bowel [id number] capsules Health mg capsule 00:00: 00:00 elimination [...] days ostomy loperamide 2021- No Altered 4mg Q.04828151 Take 2 [facility] (IMODIUM) 2 - 06-30 bowel [id number] capsules Health mg capsule 00:00: 00:00 elimination [...] QD Take 1 Compa ris sulfate 325 5- 06-30 bowel tablet by [facility] mg (65 mg 00:00: 00:00 elimination mouth iron) 00 :00 due to daily for tablet intestinal 60 days ostomy loperamide 2022-0 2022- No Altered 4mg Q.20034398 Take 2 [facility] (IMODIUM) 2 01-21-30 bowel [id number] capsules Health mg capsule 00:00: 00:00 elimination [...] days ostomy loperamide 2021- No Altered 4mg Q.60591728 Take 2 [facility] (IMODIUM) 2 01-21-30 bowel [id number] capsules Health mg capsule 00:00: 00:00 elimination [...] days ostomy loperamide 2021- No Altered 4mg Q.37005437 Take 2 [facility] (IMODIUM) 2 01-21-30 bowel [id number] capsules Health mg capsule 00:00: 00:00 elimination 3D by mouth 3 00 :00 due to times intestinal daily ostomy (before meals) for 30 days tamsulosin 2021- No Acute .4mg Take 1 Cmopa ris (FLOMAX) 01-21-30 kidney capsule by He [...] days ostomy loperamide 2021- No Altered 4mg Q.73929097 Take 2 [facility] (IMODIUM) 2 01-21-30 bowel [id number] capsules Health mg capsule 00:00: 00:00 elimination [...] days ostomy loperamide 2021- No Altered 4mg Q.73293848 Take 2 [facility] (IMODIUM) 2 01-21- bowel [id number] capsules Health mg capsule 00:00: 00:00 elimination [...] days ostomy loperamide 2021- No Altered 4mg Q.05417316 Take 2 [facility] (IMODIUM) 2 01-21-30 bowel [id number] capsules Health mg capsule 00:00: 00:00 elimination [...] days ostomy loperamide 2021- No Altered 4mg Q.50197088 Take 2 [facility] (IMODIUM) 2 01-21-30 bowel [id number] capsules Health mg capsule 00:00: 00:00 elimination [...] days ostomy loperamide 2021- No Altered 4mg Q.69842410 Take 2 [facility] (IMODIUM) 2 01-21-30 bowel [id number] capsules Health mg capsule 00:00: 00:00 elimination [...] days ostomy loperamide 2021- No Altered 4mg Q.20659253 Take 2 [facility] (IMODIUM) 2 01-21-30 bowel [id number] capsules Health mg capsule 00:00: 00:00 elimination [...] days ostomy loperamide 2021- No Altered 4mg Q.44572827 Take 2 [facility] (IMODIUM) 2 01-21 bowel [id number] capsules Health mg capsule 00:00: 00:00 elimination [...] days ostomy loperamide 2021- No Altered 4mg Q.48200498 Take 2 [facility] (IMODIUM) 2 01-21-30 bowel [id number] capsules Health mg capsule 00:00: 00:00 elimination [...] days ostomy loperamide 2021- No Altered 4mg Q.09012369 Take 2 [facility] (IMODIUM) 2 01-21-30 bowel [id number] capsules Health mg capsule 00:00: 00:00 elimination [...] days ostomy loperamide 2021- No Altered 4mg Q.24794500 Take 2 [facility] (IMODIUM) 2 01-21- bowel [id number] capsules Health mg capsule 00:00: 00:00 elimination [...] days ostomy loperamide 2021- No Altered 4mg Q.78294249 Take 2 [facility] (IMODIUM) 2 01-21-30 bowel [id number] capsules Health mg capsule 00:00: 00:00 elimination [...] days ostomy loperamide 2021- No Altered 4mg Q.[id number] Take 2 Lynne (IMODIUM) 2 01-21-30 bowel [id number] capsules Health mg capsule 00:00: 00:00 elimination [...] days ostomy loperamide 2021- No Altered 4mg Q.46600569 Take 2 Lynne (IMODIUM) 2 01-21-30 bowel [id number] capsules Health mg capsule 00:00: 00:00 elimination [...] days ostomy loperamide 2021- No Altered 4mg Q.[id number] Take 2 Lynne (IMODIUM) 2 01-21 bowel [id number] capsules Health mg capsule 00:00: 00:00 elimination [...] days ostomy loperamide 2021- No Altered 4mg Q.[id number] Take 2 Lynne (IMODIUM) 2 01-21 bowel [id number] capsules Health mg capsule 00:00: 00:00 elimination 3D by mouth 3 00 :00 due to times intestinal daily ostomy (before meals) for 30 days psyllium 2021- No Altered 1{packe Q.[id number] Take 1 Lynne (METAMUCIL) 01-21 bowel t} [id number] Packet by [employer] 6 gram PwPk 00:00: 00:00 elimination 3D mouth 3 00 :00 due to times intestinal daily ostomy (before meals) for 90 days psyllium 2021- No Altered 1{packe Q.[id number] Take 1 Lynne (METAMUCIL) 01-21 bowel t} [id number] Packet by [employer] 6 gram PwPk 00:00: 00:00 elimination 3D mouth 3 00 :00 due to times intestinal daily ostomy (before meals) for 90 days psyllium 2021- No Altered 1{packe Q.[id number] Take 1 Lynne (METAMUCIL) 01-21 bowel t} [id number] Packet by [employer] 6 gram PwPk 00:00: 00:00 elimination 3D mouth 3 00 :00 due to times intestinal daily ostomy (before meals) for 90 days psyllium 2021- No Altered 1{packe Q.[id number] Take 1 Lynne (METAMUCIL) 01-21 bowel t} [id number] Packet by [facility] 6 gram PwPk 00:00: 00:00 elimination 3D mouth 3 00 :00 due to times intestinal daily ostomy (before meals) for 90 days psyllium 2021- No Altered 1{packe Q.[id number] Take 1 Lynne (METAMUCIL) 01-21 bowel t} [id number] Packet by [employer] 6 gram PwPk 00:00: 00:00 elimination 3D mouth 3 00 :00 due to times intestinal daily ostomy (before meals) for 90 days psyllium 2021- No Altered 1{packe Q.[id number] Take 1 Lynne (METAMUCIL) 01-21 bowel t} [id number] Packet by [employer] 6 gram PwPk 00:00: 00:00 elimination 3D mouth 3 00 :00 due to times intestinal daily ostomy (before meals) for 90 days psyllium 2021- No Altered 1{packe Q.[id number] Take 1 Lynne (METAMUCIL) 01-21 bowel t} [id number] Packet by [employer] 6 gram PwPk 00:00: 00:00 elimination 3D mouth 3 00 :00 due to times intestinal daily ostomy (before meals) for 90 days psyllium 2021- No Altered 1{packe Q.[id number] Take 1 Lynne (METAMUCIL) 01-21 bowel t} [id number] Packet by [employer] 6 gram PwPk 00:00: 00:00 elimination 3D mouth 3 00 :00 due to times intestinal daily ostomy (before meals) for 90 days psyllium 2021- No Altered 1{packe Q.[id number] Take 1 Lynne (METAMUCIL) 01-21 bowel t} [id number] Packet by [employer] 6 gram PwPk 00:00: 00:00 elimination 3D mouth 3 00 :00 due to times intestinal daily ostomy (before meals) for 90 days psyllium 2021- No Altered 1{packe Q.[id number] Take 1 Lynne (METAMUCIL) 01-21 bowel t} [id number] Packet by [facility] 6 gram PwPk 00:00: 00:00 elimination 3D mouth 3 00 :00 due to times intestinal daily ostomy (before meals) for 90 days psyllium 2021- No Altered 1{packe Q.[id number] Take 1 Lynne (METAMUCIL) 01-21 bowel t} [id number] Packet by [employer] 6 gram PwPk 00:00: 00:00 elimination 3D mouth 3 00 :00 due to times intestinal daily ostomy (before meals) for 90 days psyllium 2021- No Altered 1{packe Q.[id number] Take 1 Lynne (METAMUCIL) 01-21 bowel t} [id number] Packet by [employer] 6 gram PwPk 00:00: 00:00 elimination 3D mouth 3 00 :00 due to times intestinal daily ostomy (before meals) for 90 days psyllium 2021- No Altered 1{packe Q.[id number] Take 1 Lynne (METAMUCIL) 01-21 bowel t} [id number] Packet by [facility] 6 gram PwPk 00:00: 00:00 elimination 3D mouth 3 00 :00 due to times intestinal daily ostomy (before meals) for 90 days psyllium 2021- No Altered 1{packe Q.[id number] Take 1 Lynne (METAMUCIL) 01-21 bowel t} [id number] Packet by [employer] 6 gram PwPk 00:00: 00:00 elimination 3D mouth 3 00 :00 due to times intestinal daily ostomy (before meals) for 90 days psyllium 2021- No Altered 1{packe Q.[id number] Take 1 Lynne (METAMUCIL) 01-21 bowel t} [id number] Packet by [facility] 6 gram PwPk 00:00: 00:00 elimination 3D mouth 3 00 :00 due to times intestinal daily ostomy (before meals) for 90 days psyllium 2021- No Altered 1{packe Q.[id number] Take 1 Lynne (METAMUCIL) 01-21 bowel t} [id number] Packet by [facility] 6 gram PwPk 00:00: 00:00 elimination 3D mouth 3 00 :00 due to times intestinal daily ostomy (before meals) for 90 days psyllium 2021- No Altered 1{packe Q.[id number] Take 1 Lynne (METAMUCIL) 01-21 bowel t} [id number] Packet by [employer] 6 gram PwPk 00:00: 00:00 elimination 3D mouth 3 00 :00 due to times intestinal daily ostomy (before meals) for 90 days psyllium 2021- No Altered 1{packe Q.[id number] Take 1 Lynne (METAMUCIL) 01-21 bowel t} [id number] Packet by [facility] 6 gram PwPk 00:00: 00:00 elimination 3D mouth 3 00 :00 due to times intestinal daily ostomy (before meals) for 90 days psyllium 2021- No Altered 1{packe Q.[id number] Take 1 Lynne (METAMUCIL) 01-21 bowel t} [id number] Packet by [facility] 6 gram PwPk 00:00: 00:00 elimination 3D mouth 3 00 :00 due to times intestinal daily ostomy (before meals) for 90 days psyllium 2021- No Altered 1{packe Q.[id number] Take 1 Lynne (METAMUCIL) 01-21 bowel t} [id number] Packet by [employer] 6 gram PwPk 00:00: 00:00 elimination 3D mouth 3 00 :00 due to times intestinal daily ostomy (before meals) for 90 days psyllium 2021- No Altered 1{packe Q.[id number] Take 1 Lynne (METAMUCIL) 01-21 bowel t} [id number] Packet by [facility] 6 gram PwPk 00:00: 00:00 elimination 3D mouth 3 00 :00 due to times intestinal daily ostomy (before meals) for 90 days psyllium 2021- No Altered 1{packe Q.[id number] Take 1 Lynne (METAMUCIL) 01-21 bowel t} [id number] Packet by [employer] 6 gram PwPk 00:00: 00:00 elimination 3D mouth 3 00 :00 due to times intestinal daily ostomy (before meals) for 90 days psyllium 2021- No Altered 1{packe Q.[id number] Take 1 Lynne (METAMUCIL) 01-21 06-21 bowel t} [id number] Packet by [employer] 6 gram PwPk 00:00: 00:00 elimination 3D mouth 3 00 :00 due to times intestinal daily ostomy (before meals) for 90 days tamsulosin 2021- No Benign .4mg QD Take 1 Momin rris (FLOMAX) 01-12 prostatic capsule by [employer] 0.4 mg 00:00: 00:00 hyperplasia mouth capsule 00 :00 , daily. unspecified Start on whether 01/12/2022. lower urinary tract symptoms present tamsulosin 2021- No Benign .4mg QD Take 1 Momin rris (FLOMAX) 01-12 prostatic capsule by [employer] 0.4 mg 00:00: 00:00 hyperplasia mouth capsule 00 :00 , daily. unspecified Start on whether 01/12/2022. lower urinary tract symptoms present tamsulosin 2021- No Benign .4mg QD Take 1 Momin rris (FLOMAX) 01-12 prostatic capsule by [employer] 0.4 mg 00:00: 00:00 hyperplasia mouth capsule 00 :00 , daily. unspecified Start on whether 01/12/2022. lower urinary tract symptoms present tamsulosin 2021- No Benign .4mg QD Take 1 Momin rris (FLOMAX) 01-12 prostatic capsule by [employer] 0.4 mg 00:00: 00:00 hyperplasia mouth capsule 00 :00 , daily. unspecified Start on whether 01/12/2022. lower urinary tract symptoms present tamsulosin 2021- No Benign .4mg QD Take 1 Momin rris (FLOMAX) 01-12 prostatic capsule by [employer] 0.4 mg 00:00: 00:00 hyperplasia mouth capsule [...] Momin rris (FLOMAX) 01-12- prostatic capsule by [facility] 0.4 mg 00:00: 00:00 hyperplasia mouth capsule 00 :00 , daily. unspecified Start on whether 01/12/2022. lower urinary tract symptoms present tamsulosin 2021-2021- No Benign .4mg QD Take 1 Momin rris (FLOMAX) 01-12 prostatic capsule by [facility] 0.4 mg 00:00: 00:00 hyperplasia mouth capsule 00 :00 , daily. unspecified Start on whether 01/12/2022. lower urinary tract symptoms present tamsulosin 2021-2021- No Benign .4mg QD Take 1 Momin rris (FLOMAX) 01-12 prostatic capsule by [facility] 0.4 mg 00:00: 00:00 hyperplasia mouth capsule 00 :00 , daily. unspecified Start on whether 01/12/2022. lower urinary tract symptoms present tamsulosin 2021-2021- No Benign .4mg QD Take 1 Momin rris (FLOMAX) 01-12 prostatic capsule by [facility] 0.4 mg 00:00: 00:00 hyperplasia mouth capsule 00 :00 , daily. unspecified Start on whether 01/12/2022. lower urinary tract symptoms present tamsulosin 2021-2021- No Benign .4mg QD Take 1 Momin rris (FLOMAX) 01-12 prostatic capsule by [facility] 0.4 mg 00:00: 00:00 hyperplasia mouth capsule 00 :00 , daily. unspecified Start on whether 01/12/2022. lower urinary tract symptoms present tamsulosin 2021-2021- No Benign .4mg QD Take 1 Momin rris (FLOMAX) 01-12-31 prostatic capsule by [facility] 0.4 mg 00:00: 00:00 hyperplasia mouth capsule [...] (FLOMAX) 01-12 prostatic capsule by [facility] 0.4 mg 00:00: 00:00 hyperplasia mouth capsule 00 :00 , daily. unspecified Start on whether 01/12/2022. lower urinary tract symptoms present tamsulosin 2021- No Benign .4mg QD Take 1 Momin rris (FLOMAX) 01-12 prostatic capsule by [facility] 0.4 mg 00:00: 00:00 hyperplasia mouth capsule 00 :00 , daily. unspecified Start on whether 01/12/2022. lower urinary tract symptoms present tamsulosin 2021- No Benign .4mg QD Take 1 Momin rris (FLOMAX) 01-12 prostatic capsule by [facility] 0.4 mg 00:00: 00:00 hyperplasia mouth capsule 00 :00 , daily. unspecified Start on whether 01/12/2022. lower urinary tract symptoms present tamsulosin 2021- No Benign .4mg QD Take 1 Momin rris (FLOMAX) 01-12 prostatic capsule by [facility] 0.4 mg 00:00: 00:00 hyperplasia mouth capsule 00 :00 , daily. unspecified Start on whether 01/12/2022. lower urinary tract symptoms present tamsulosin 2021- No Benign .4mg QD Take 1 Momin rris (FLOMAX) 01-12-31 prostatic capsule by [facility] 0.4 mg 00:00: 00:00 hyperplasia mouth capsule [...] (FLOMAX) 01-12 prostatic capsule by [facility] 0.4 mg 00:00: 00:00 hyperplasia mouth capsule 00 :00 , daily. unspecified Start on whether 01/12/2022. lower urinary tract symptoms present tamsulosin 2021-0 2021- No Benign .4mg QD Take 1 Momin rris (FLOMAX) 01-12 prostatic capsule by [employer] 0.4 mg 00:00: 00:00 hyperplasia mouth capsule 00 :00 , daily. unspecified Start on whether 01/12/2022. lower urinary tract symptoms present tamsulosin 2021-2021- No Benign .4mg QD Take 1 Momin rris (FLOMAX) 01-12 prostatic capsule by [employer] 0.4 mg 00:00: 00:00 hyperplasia mouth capsule [...] (DAILY 04-14 05-21 abuse, in tablet by [employer] VITMetaboli) 00:00: 00:00 remission mouth tablet 00 :00 daily. thiamine, 2021- No Alcohol 100mg QD Take 1 H arris B-1, 100 mg 04-14 05-21 abuse, in tablet by Health tablet 00:00: 00:00 remission mouth 00 :00 daily. multivitami 2021- No Alcohol 1{tbl} QD Take 1 Lynne n (DAILY 04-14-21 abuse, in tablet by [employer] VITMetaboli) 00:00: 00:00 remission mouth tablet 00 :00 daily. thiamine, 2021- No Alcohol 100mg QD Take 1 H arris B-1, 100 mg 04-14 05-21 abuse, in tablet by Health tablet 00:00: 00:00 remission mouth 00 :00 daily. multivitami 2021- No Alcohol 1{tbl} QD Take 1 Lynne n (DAILY 04-14-21 abuse, in tablet by [employer] VITMetaboli) 00:00: 00:00 remission mouth tablet 00 :00 daily. 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 multivitami 2021- No Alcohol 1{tbl} QD Take 1 Lynne n (DAILY 8 05-21 abuse, in tablet by [employer] VITMetaboli) 00:00: 00:00 remission mouth tablet 00 :00 [...] n (DAILY 04-14 abuse, in tablet by [employer]) 00:00: 00:00 remission mouth tablet 00 :00 daily. 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 multivitami 2021- No Alcohol 1{tbl} QD Take 1 Lynne n (DAILY 04-14 abuse, in tablet by [employer] VITMetaboli) 00:00: 00:00 remission mouth tablet 00 :00 daily. 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 multivitami 2021- No Alcohol 1{tbl} QD Take 1 Lynne n (DAILY 04-14 abuse, in tablet by [employer] VITES) 00:00: 00:00 remission mouth tablet 00 :00 daily. thiamine, 2021- No Alcohol 100mg QD Take 1 H arris B-1, 100 mg 04-14- abuse, in tablet by Health tablet 00:00: 00:00 remission mouth 00 :00 daily. multivitami 2021- No Alcohol 1{tbl} QD Take 1 Lynne n (DAILY 04-14- abuse, in tablet by [employer]) 00:00: 00:00 remission mouth tablet 00 :00 daily. thiamine, 2021- No Alcohol 100mg QD Take 1 H arris B-1, 100 mg 04-14-21 abuse, in tablet by Health tablet 00:00: 00:00 remission mouth 00 :00 daily. multivitami 2021- No Alcohol 1{tbl} QD Take 1 Lynne n (DAILY 04-14- abuse, in tablet by Health VITMetaboli) 00:00: 00:00 remission mouth tablet 00 :00 daily. thiamine, 2021- No Alcohol 100mg QD Take 1 H arris B-1, 100 mg 04-14-21 abuse, in tablet by Health tablet 00:00: 00:00 remission mouth 00 :00 daily. multivitami 2021- No Alcohol 1{tbl} QD Take 1 Lynne n (DAILY 04-14 abuse, in tablet by [employer]) 00:00: 00:00 remission mouth tablet 00 :00 daily. 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 multivitami 2021- No Alcohol 1{tbl} QD Take 1 Lynne n (DAILY 04-14- abuse, in tablet by [employer] VITMetaboli) 00:00: 00:00 remission mouth tablet 00 :00 daily. thiamine, 2021- No Alcohol 100mg QD Take 1 H arris B-1, 100 mg 04-14-21 abuse, in tablet by Health tablet 00:00: 00:00 remission mouth 00 :00 daily. multivitami 2021- No Alcohol 1{tbl} QD Take 1 Lynne n (DAILY 04-14- abuse, in tablet by [employer] VITMetaboli) 00:00: 00:00 remission mouth tablet 00 :00 daily. thiamine, 2021- No Alcohol 100mg QD Take 1 H arris B-1, 100 mg 04-14-21 abuse, in tablet by Health tablet 00:00: 00:00 remission mouth 00 :00 daily. multivitami 2021- No Alcohol 1{tbl} QD Take 1 Lynne n (DAILY 04-14- abuse, in tablet by [employer]) 00:00: 00:00 remission mouth tablet 00 :00 [...] n (DAILY 04-14 abuse, in tablet by [employer]) 00:00: 00:00 remission mouth tablet 00 :00 daily. thiamine, 2021- No Alcohol 100mg QD Take 1 H arris B-1, 100 mg 04-14-21 abuse, in tablet by Health tablet 00:00: 00:00 remission mouth 00 :00 daily. multivitami 2021- No Alcohol 1{tbl} QD Take 1 Lynne n (DAILY 04-14 abuse, in tablet by [employer] VITES) 00:00: 00:00 remission mouth tablet 00 :00 daily. thiamine, 2021- No Alcohol 100mg QD Take 1 H arris B-1, 100 mg 04-14- abuse, in tablet by Health tablet 00:00: 00:00 remission mouth 00 :00 daily. multivitami 2021- No Alcohol 1{tbl} QD Take 1 Lynne n (DAILY 04-14-21 abuse, in tablet by [employer] VITMetaboli) 00:00: 00:00 remission mouth tablet 00 :00 daily. thiamine, 2021- No Alcohol 100mg QD Take 1 H arris B-1, 100 mg 04-14-21 abuse, in tablet by Health tablet 00:00: 00:00 remission mouth 00 :00 daily. multivitami 2021- No Alcohol 1{tbl} QD Take 1 Lynne n (DAILY 04-14 abuse, in tablet by Health [employer]) 00:00: 00:00 remission mouth tablet 00 :00 daily. 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 multivitami 2021- No Alcohol 1{tbl} QD Take 1 Lynne n (DAILY 04-14 abuse, in tablet by [employer]) 00:00: 00:00 remission mouth tablet 00 :00 [...] kg Systolic blood 2022-03-13 15:33:00 94 mm[Hg] [facility] pressure Diastolic blood 2022-03-13 15:33:00 62 mm[Hg] [facility] Heart rate 2022-03-13 15:33:00 109 /min [facility] Body temperature 2022-03-13 15:33:00 36.67 [facility] Respiratory rate 2022-03-13 15:33:00 20 /min [facility] Body height 2022-03-13 15:33:00 185.4 cm [facility] Body weight 2022-03-13 15:33:00 66.679 kg [facility] BMI 2022-03-13 15:33:00 19.39 kg/m2 [facility] Oxygen saturation in 2022-03-13 15:33:00 100 /min [facility] Arterial blood by Pulse oximetry Systolic blood 2022-03-09 11:00:00 107 mm[Hg] [facility] Diastolic blood 2022-03-09 11:00:00 66 mm[Hg] [facility] Heart rate 2022-03-09 11:00:00 58 /min [facility] Body temperature 2022-03-09 11:00:[address] [facility] Respiratory rate 2022-03-09 11:00:00 16 /min [facility] Oxygen saturation in 2022-03-09 11:00:00 100 /min [facility] Arterial blood by Medical Ce [facility]ter Pulse oximetry Body height 2022-03-06 12:05:00 185.4 cm [facility] Body weight 2022-03-06 12:05:00 65.772 kg [facility] BMI 2022-03-06 12:05:00 19.13 kg/m2 [facility] Procedures Procedure Date / Time Performing Clinician Source Performed BASIC METABOLIC PANEL 2022-03-07 05:51:00 Shiela [facility] HEPATIC FUNCTION PANEL 2022-03-07 05:51:00 Shiela [facility] CBC W/PLT COUNT & AUTO 2022-03-07 05:51[facility] 2022-03-07 05:51:00 Shiela [facility] US RENAL COMPLETE 2022-03-06 18:23:00 [facility] SARS-COV2/RT-PCR ([facility] & 2022-03-06 17:36:00 Shiela [facility] REF LABS) [facility] TSH/FREE T4 IF INDICATED 2022-03-06 14:18[facility]00 [facility] 2022-03-06 14:18:00 Aryan Tello [facility] ED ECG INTERPRETATION 2022-03-06 13:48:12 [facility] 1 VIEW PORTABLE 2022-03-06 13:42[facility] B-TYPE NATRIURETIC FACTOR 2022-03-06 13:23:00 Aryan Tello [facility] (BNP) [facility] CBC W/PLT COUNT & AUTO 2022-03-06 13:23:00 Aryan Tello [facility] COMPREHENSIVE METABOLIC 2022-03-06 13:23:00 [facility] HIGH SENSITIVITY TROPONIN 2022-03-06 13:23:00 Aryan Tello [facility] MAGNESIUM 2022-03-06 13:23:00 Aryan Tello [facility] PHOSPHORUS 2022-03-06 13:23:00 Alao[facility] LACTIC ACID, VENOUS 2022-03-06 13:23:00 Aryan Tello [facility] CREATINE KINASE (CK) 2022-03-06 13:23:00 Aryan Tello [facility] CBC W/PLT COUNT & AUTO 2022-03-06 13:23:00 Aryan Tello [facility] DIFFERENTIAL [facility] ECG 12-LEAD 2022-03-06 12:12:56 Unknown, Hl7 [facility] ECG 12-LEAD 2022-03-06 12:12:56 Unknown, Hl7 [facility] ECG 12-LEAD 2022-03-06 12:12:56 Unknown, Hl7 [facility] EKG-SCANNED 2022-03-06 00:00:00 Provider, [facility] CBC (WITHOUT 2022-02-20 05:10:00 Rufino Lazaro DIFFERENTIAL) BASIC METABOLIC PANEL 2022-02-20 05:10:00 Rufino Lazaro Health MAGNESIUM 2022-02-20 05:10:00 Rufino Lazaro PHOSPHORUS 2022-02-20 05:10:00 Rufino Lazaro INFUSION PUMP 2022-02-19 19:03:50 Rufino Lazaro COMPREHENSIVE METABOLIC 2022-02-19 06:35:00 [facility]DIFF 2022-02-19 06:35:00 Kobe Blake alth PHOSPHORUS 2022-02-19 06:35:00 Kobe Blake alth CBC 2022-02-19 06:35:00 Kobe Blake alth URINALYSIS W/REFLEX TO 2022-02-19 00:34:00 Kobe Blake [facility] URINE CULTURE URINALYSIS 2022-02-19 00:34:00 Chadd Palacios URINE CULTURE COLLECTION 2022-02-19 00:34:00 Chadd Palacios [facility] KIT SARS-COV-2, FLU A/B, RSV 2022-02-18 19:00:00 Philip Chadd [facility] CORONAVIRUS, COVID-19, 2022-02-18 19:00:[address] [facility] OLENA XRAY CHEST 1 VIEW 2022-02-18 15:23:00 Roz Scales [facility] CONSULT CLINICAL CASE 2022-02-18 14:50:50 Roz Scales Health MANAGEMENT (RN/SW) CBC/DIFF 2022-02-18 14:16:00 Albab, Susana [facility] BASIC METABOLIC PANEL 2022-02-18 14:16:00 Albab, [facility] Health MAGNESIUM 2022-02-18 14:16:00 Albab, Susana [facility] PHOSPHORUS 2022-02-18 14:16:00 Albab, Susana [facility] CREATINE KINASE (CK) 2022-02-18 14:16:00 Albab, [facility] CBC 2022-02-18 14:16:00 Albab, Susana [facility] BASIC METABOLIC PANEL 2022-02-11 03:34:00 [facility]-02-11 03:34:[facility] [place] PHOSPHORUS 2022-02-11 03:34:00 [facility] CBC (WITHOUT 2022-02-11 03:34:00 [facility] DIFFERENTIAL) CBC/DIFF 2022-02-10 03:39:00 Meghan Islas Healt h BASIC METABOLIC PANEL 2022-02-10 03:39:00 [facility] 2022-02-10 03:39:00 Rosas Islasashia [facility] THYROID STIMULATING 2022-02-10 03:39:00 [place], Teresa [facility] HORMONE (TSH) FREE T4 2022-02-10 03:39:00 Teresa Alves [facility] CBC/DIFF 2022-02-09 04:38:00 Meghan Islas Healt h BASIC METABOLIC PANEL 2022-02-09 04:38:00 Antonieta [facility] CBC 2022-02-09 04:38:00 Yin, Youshi [facility] CORTISOL, TOTAL 2022-02-08 11:37:00 Mari Meier [facility] GLUCOSE POC 2022-02-08 08:07:[address] [facility] CBC (WITHOUT 2022-02-08 04:00:00 [facility] DIFFERENTIAL) COMPREHENSIVE METABOLIC 2022-02-08 04:00:00 Mari Meier Health PANEL PHOSPHORUS 2022-02-08 04:00:00 Mari Meier ealth MAGNESIUM 2022-02-08 04:00:00 [facility] PT/INR 2022-02-08 04:00:00 Mari Meier [facility] URINALYSIS W/REFLEX TO 2022-02-07 18:06:00 Areli Arciniega [facility] URINE CULTURE URINALYSIS 2022-02-07 18:06:00 Areli Arciniega alth URINE CULTURE COLLECTION 2022-02-07 18:06:00 Areli Arciniega [facility] KIT ELECTROLYTES, URINE 2022-02-07 18:06:00 Jyoti Carrillo [facility] OSMOLALITY, URINE 2022-02-07 18:06:00 Jyoti Carrillo [facility] SARS-COV-2, FLU A/B, RSV 2022-02-07 18:05:00 Jyoti Carrillo [facility] CORONAVIRUS, COVID-19, 2022-02-07 18:05:00 Jyoti Carrillo [facility] OLENA NUTRITION CONSULT 2022-02-07 17:43:36 Mari Meier [facility] ASSESSMENT BASIC METABOLIC PANEL 2022-02-07 17:18:00 Jyoti Carrillo [facility] LACTIC ACID 2022-02-07 14:04:00 Areli Arciniega alth CBC/DIFF 2022-02-07 14:03:00 Areli Arciniega alth BASIC METABOLIC PANEL 2022-02-07 14:03:00 Areli Arciniega [facility] LIVER PROFILE 2022-02-07 14:03:00 Areli Arciniega alth LIPASE 2022-02-07 14:03:00 Areli Arciniega alth MAGNESIUM 2022-02-07 14:03:00 Areli Arciniega alth PHOSPHORUS 2022-02-07 14:03:00 Areli Arciniega alth TROPONIN I 2022-02-07 14:03:00 Areli Arciniega alth CBC 2022-02-07 14:03:00 Areli Arciniega alth 12 LEAD EKG 2022-01-21 15:46:10 Ori Goldberg [facility] CBC/DIFF 2022-01-21 04:11:00 LindseySteve [facility] MAGNESIUM 2022-01-21 04:11:00 Steve Lucas P [facility] PHOSPHORUS 2022-01-21 04:11:00 LindseyNoeh P [facility] BASIC METABOLIC PANEL 2022-01-21 04:11:00 Ori Goldberg [facility] CBC 2022-01-21 04:11:00 LindseySteve P [facility] CBC/DIFF 2022-01-20 04:37:00 LindseySteve P [facility] MAGNESIUM 2022-01-20 04:37:00 Lindsey Steve P [facility] PHOSPHORUS 2022-01-20 04:37:00 LindseyNoeh P [facility] BASIC METABOLIC PANEL 2022-01-20 04:37:[address] [facility] CBC 2022-01-20 04:37:00 Lindsey Steve P [facility] MAGNESIUM 2022-01-19 18:09:00 Lindsey Steve P [facility] PHOSPHORUS 2022-01-19 18:09:00 Lindsey Steve P [facility] BASIC METABOLIC PANEL 2022-01-19 18:09:00 Lindsey, Steve P [facility] CORTISOL, TOTAL 2022-01-19 18:09:00 Karin Bassett [facility] URINALYSIS W/REFLEX TO 2022-01-19 17:22:00 Lindsey, Steve [facility] URINE CULTURE URINALYSIS 2022-01-19 17:22:00 LindseyNoe herrerah [facility] URINE CULTURE COLLECTION 2022-01-19 17:22:00 Lindsey Steve P [facility] KIT COMPUTED TOMOGRAPHY 2022-01-19 13:29:00 Noe Lucash [facility] ABDOMEN AND PELVIS WITHOUT CONTRAST CBC/DIFF 2022-01-19 04:44:00 Noe Lucash Esther [facility] CBC 2022-01-19 04:44:00 [facility] (NO 2022-01-19 04:44:00 LindseySteve Esther [facility] MORPHOLOGY)-WA BASIC METABOLIC PANEL 2022-01-18 17:15:00 Setve Lucas [facility] CBC/DIFF 2022-01-18 04:46:00 Noe Lucash Esther [facility] MAGNESIUM 2022-01-18 04:46:00 Noe Lucash Esther [facility] PHOSPHORUS 2022-01-18 04:46[facility] METABOLIC PANEL 2022-01-18 04:46:00 Ori Goldberg [facility] CBC 2022-01-18 04:46:00 [facility] AG/AB COMBO ROUTINE 2022-01-18 04:46:00 Karin Bassett [facility] SCREENING ENTERIC PATHOGENS NUCLEIC 2022-01-18 03:25:00 Karin Bassett [facility] ACID TEST BASIC METABOLIC PANEL 2022-01-18 00:29:00 Ori Goldberg [facility] BASIC METABOLIC PANEL 2022-01-17 17:07:00 Neo Lucash [facility] BASIC METABOLIC PANEL 2022-01-17 13:15:[address] [facility] CALPROTECTIN FECAL 2022-01-17 12:38:00 Steve Lucas [facility] ealth FECAL LEUKOCYTES 2022-01-17 12:38:[address] [facility]TRANSGLUT[facility]IN[facility] IGA 2022-01-17 12:22:00 Lindsey, Steve [facility] BASIC METABOLIC PANEL 2022-01-17 08:51:00 Lindsey, Steve [facility] BASIC METABOLIC PANEL 2022-01-17 04:47:00 LindseySteve herreraashia levine [facility] CBC/DIFF 2022-01-17 04:47:00 Steve Lucas [facility] th MAGNESIUM 2022-01-17 04:47:00 Steve [facility] PHOSPHORUS 2022-01-17 04:47:00 Noe Lucash Esther [facility] CBC 2022-01-17 04:47:00 LindseySteve [facility] BASIC METABOLIC PANEL 2022-01-17 00:08:00 LindseySteve child Frankie levine [facility] 12 LEAD EKG 2022-01-16 21:23:25 Noe Lucash Esther [facility] BASIC METABOLIC PANEL 2022-01-16 21:08:00 Lindsey, Steve Esther Frankie levine [facility] XRAY CHEST 2 VIEWS 2022-01-16 19:56:00 Steve Lucas [facility] ealth IP CONSULT TO PHYSICAL 2022-01-16 19:17:17 Steve [facility] THERAPY CONSULT CLINICAL CASE 2022-01-16 19:17:17 [facility] MANAGEMENT (RN/SW) SEQUENTIAL COMPRESSION 2022-01-16 19:17:17 [facility] PUMP SEQUENTIAL COMPRESSION 2022-01-16 19:17:17 [facility] PUMP SODIUM, URINE, RANDOM 2022-01-16 16:00:00 Kevin Nieves [facility] CREATININE, URINE, RANDOM 2022-01-16 16:00:00 Kevin Nieves [facility] OSMOLALITY, URINE 2022-01-16 16:00:00 Kevin Nieves [facility] SARS-COV-2, FLU A/B, RSV 2022-01-16 15:20:00 Kevin Nieves [facility] CORONAVIRUS, COVID-19, 2022-01-16 15:20:00 Kevin Nieves [facility] OLENA FOLIC ACID 2022-01-16 14:13:00 Kevin Nieves [facility] CREATININE POC 2022-01-16 13:55:00 [facility] BMP POC 2022-01-16 13:46:00 [facility] CBC/DIFF 2022-01-16 12:12:00 [facility] CBC 2022-01-16 12:12:00 [facility] BASIC METABOLIC PANEL 2022-01-16 12:11:00 Sadiq Vargas [facility] MAGNESIUM 2022-01-16 12:11:00 Sadiq Vargas a lth VITAMIN B12 2022-01-16 12:11:00 Kevin Nieves ealt OSMOLALITY,SERUM 2022-01-16 12:11:00 Kevin Nieves [facility] INFUSION PUMP 2022-01-11 09:21:05 Helene Ring [facility] GLUCOSE POC 2022-01-11 07:54:00 Helene Ring [facility] BASIC METABOLIC PANEL 2022-01-11 04:07:00 Merissa Richards [facility] MAGNESIUM 2022-01-11 04:07:00 [facility]-11 04:07:00 [facility] CBC/DIFF 2022-01-11 04:06:00 [facility]ON [facility] 2022-01-11 04:06:00 [facility] 2022-01-11 04:06:00 Mer[facility] CBC 2022-01-11 04:06:00 Merissa Richards [facility] h GLUCOSE POC 2022-01-10 18:16:00 Helene Ring [facility] URINALYSIS 2022-01-10 16:10:00 [facility] 2022-01-10 16:10:00 Mersisa [facility] SARS-COV-2, FLU A/B, RSV 2022-01-10 15:54:00 Merissa Richards [facility] CORONAVIRUS, COVID-19, 2022-01-10 15:54:[address] [facility] OLENA BASIC METABOLIC PANEL 2022-01-10 15:54:00 Merissa Richards [facility] VITAMIN B12 2022-01-10 15:54:00 Merissa Richards [facility] VBG POC 2022-01-10 11:14:00 Dia Jewell lt CBC/DIFF 2022-01-10 11:13:00 [facility]OL[facility] PAN[facility] 2022-01-10 11:13:00 Antoine Hester [facility] LACTIC ACID 2022-01-10 11:13:00 [facility] 2022-01-10 11:13:00 Antoine Hester [facility] LIVER PROFILE 2022-01-10 11:13:00 Merissa Richards [facility] CK, TOTAL 2022-01-10 11:13:00 [facility] 2022-01-10 11:13:00 Merissa Richards [facility] h CREATINE KINASE MB (CKMB) 2022-01-10 11:13:00 Merissa Richards [facility] XRAY CHEST 2 VIEWS 2022-01-08 21:50:14 Tanja Sebastian [facility] CBC/DIFF 2022-01-08 21:27:00 Tanja Sebastian [facility] BASIC METABOLIC PANEL 2022-01-08 21:27:00 Tanja Sebastian [facility] LIVER PROFILE 2022-01-08 21:27:00 Tan[facility] CK, TOTAL 2022-01-08 21:27:00 Tanja [facility] TROPONIN I 2022-01-08 21:27:00 Tanja Sebastian [facility] lt CBC 2022-01-08 21:27:00 Tanja Sebastian [facility] CREATINE KINASE MB (CKMB) 2022-01-08 21:27:00 Tanja Sebastian [facility] 12 LEAD EKG 2022-01-08 20:59:56 Tanja Sebastian [facility] [id number] 2020-01-09 00:00:00 [facility]01 [facility] Plan of Care Planned Activity Planned Date Details Comments Source Future Scheduled 2029-03-23 Screening for malignant [facility] 00:00:00 neoplasm [facility] colon [facility]procedure) [code = 795732749] Future Scheduled 2029-03-23 Screening for malignant [facility] 00:00:00 neoplasm of colon [facility] (procedure) [code = 613063658] Future Scheduled 2029-03-23 Screening for malignant [facility] 00:00:00 neoplasm of colon [facility] (procedure) [code = 402537786] Future Scheduled 2029-03-23 Screening for malignant [facility] 00:00:00 neoplasm of colon [facility] (procedure) [code = 893415434] Future Scheduled 2029-03-23 Screening for malignant [facility] 00:00:00 neoplasm of colon [facility] (procedure) [code = 388087450] Future Scheduled 2029-03-23 Screening for malignant [facility] 00:00:00 neoplasm of colon [facility] (procedure) [code = 480464694] Future Scheduled 2029-03-23 Screening for malignant [facility] 00:00:00 neoplasm of colon [facility] (procedure) [code = 526774038] Future Scheduled 2029-03-23 Screening for malignant [facility] 00:00:00 neoplasm of colon [facility] (procedure) [code = 991721630] Future Scheduled 2029-03-23 Screening for malignant [facility] 00:00:00 neoplasm of colon [facility] (procedure) [code = 426527478] Future Scheduled 2029-03-23 Screening for malignant [facility] 00:00:00 neoplasm of colon [facility] (procedure) [code = 919707552] Future Scheduled 2029-03-23 Screening for malignant [facility] 00:00:00 neoplasm of colon [facility] (procedure) [code = 317443791] Future Scheduled 2029-03-23 Screening for malignant [facility] 00:00:00 neoplasm of colon [facility] (procedure) [code = 997613874] Future Scheduled 2029-03-23 Screening for malignant [facility] 00:00:00 neoplasm of colon [facility] (procedure) [code = 165945489] Future Scheduled 2029-03-23 Screening for malignant [facility] 00:00:00 neoplasm of colon [facility] (procedure) [code = 393141982] Future Scheduled 2029-03-23 Screening for malignant [facility] 00:00:00 neoplasm of colon [facility] (procedure) [code = 683175352] Future Scheduled 2029-03-23 Screening for malignant [facility] 00:00:00 neoplasm of colon [facility] (procedure) [code = 434917309] Future Scheduled 2029-03-23 Screening for malignant [facility] 00:00:00 neoplasm of colon [facility] (procedure) [code = 985169719] Future Scheduled 2029-03-23 Screening for malignant [facility] 00:00:00 neoplasm of colon [facility] (procedure) [code = 400213215] Future Scheduled 2029-03-23 Screening for malignant [facility] 00:00:00 neoplasm of colon [facility] (procedure) [code = 393969317] Future Scheduled 2029-03-23 Screening for malignant [facility] 00:00:00 neoplasm of colon [facility] (procedure) [code = 918229918] Future Scheduled 2029-03-23 Screening for malignant [facility] 00:00:00 neoplasm of colon [facility] (procedure) [code = 818089721] Future Scheduled 2029-03-23 Screening for malignant [facility] 00:00:00 neoplasm of colon [facility] (procedure) [code = 755721070] Future Scheduled 2029-03-23 Screening for malignant [facility] 00:00:00 neoplasm of colon [facility] (procedure) [code = 630022719] Future Scheduled 2029-03-23 Screening for malignant [facility] 00:00:00 neoplasm of colon [facility] (procedure) [code = 426454584] Future Scheduled 2029-03-23 Screening for malignant [facility] 00:00:00 neoplasm of colon [facility] (procedure) [code = 173177052] Future Scheduled 2029-03-23 Screening for malignant [facility] 00:00:00 neoplasm of colon [facility] (procedure) [code = 489678653] Future Scheduled 2029-03-23 Screening for malignant [facility] 00:00:00 neoplasm of colon [facility] (procedure) [code = 453434786] Future Scheduled 2029-03-23 Screening for malignant [facility] 00:00:00 neoplasm of colon [facility] (procedure) [code = 594512027] Future Scheduled 2029-03-23 Screening for malignant [facility] 00:00:00 neoplasm of colon [facility] (procedure) [code = 259589465] Future Scheduled 2029-03-23 Screening for malignant [facility] 00:00:00 neoplasm of colon [facility] (procedure) [code = 186486589] Future Scheduled 2029-03-23 Screening for malignant [facility] 00:00:00 neoplasm of colon [facility] (procedure) [code = 747021111] Future Scheduled 2029-03-23 Screening for malignant [facility] 00:00:00 neoplasm of colon [facility] (procedure) [code = 781689305] Future Scheduled 2029-03-23 Screening for malignant [facility] 00:00:00 neoplasm of colon [facility] (procedure) [code = 399686390] Future Scheduled 2029-03-23 Screening for malignant [facility] 00:00:00 neoplasm of colon [facility] (procedure) [code = 518965582] Future Scheduled 2029-03-23 Screening for malignant [facility] 00:00:00 neoplasm of colon [facility] (procedure) [code = 774627834] Future Scheduled 2029-03-23 Screening for malignant [facility] 00:00:00 neoplasm of colon [facility] (procedure) [code = 818468085] Future Scheduled 2029-03-23 Screening for malignant [facility] 00:00:00 neoplasm of colon [facility] (procedure) [code = 109359622] Future Scheduled 2029-03-23 Screening for malignant [facility] 00:00:00 neoplasm of colon [facility] (procedure) [code = 524608072] Future Scheduled 2029-03-23 Screening for malignant [facility] 00:00:00 neoplasm of colon [facility] (procedure) [code = 390911581] Future Scheduled 2029-03-23 Screening for malignant [facility] 00:00:00 neoplasm of colon [facility] (procedure) [code = 582675007] Future Scheduled 2029-03-23 Screening for malignant [facility] 00:00:00 neoplasm of colon [facility] (procedure) [code = 367733728] Future Scheduled 2029-03-23 Screening for malignant [facility] 00:00:00 neoplasm of colon [facility] (procedure) [code = 283443242] Future Scheduled 2029-03-23 Screening for malignant [facility] 00:00:00 neoplasm of colon [facility] (procedure) [code = 849229042] Future Scheduled 2029-03-23 Screening for malignant [facility] 00:00:00 neoplasm of colon [facility] (procedure) [code = 935990294] Future Scheduled 2029-03-23 Screening for malignant [facility] 00:00:00 neoplasm of colon [facility] (procedure) [code = 365172406] Future Scheduled 2029-03-23 Screening for malignant [facility] 00:00:00 neoplasm of colon [facility] (procedure) [code = 505764238] Future Scheduled 2029-03-23 Screening for malignant [facility] 00:00:00 neoplasm of colon [facility] (procedure) [code = 906906144] Future Scheduled 2029-03-23 Screening for malignant [facility] 00:00:00 neoplasm of colon [facility] (procedure) [code = 690723089] Future Scheduled 2029-03-23 Screening for malignant [facility] 00:00:00 neoplasm of colon [facility] (procedure) [code = 734117362] Future Scheduled 2029-03-23 Screening for malignant [facility] 00:00:00 neoplasm of colon [facility] (procedure) [code = 766061031] Future Scheduled 2029-03-23 Screening for malignant [facility] 00:00:00 neoplasm of colon [facility] (procedure) [code = 995636787] Future Scheduled 2022-08-[address] [...] 00:00:00 neoplasm of colon (procedure) [code = 861184082] Future Scheduled 2020-02-14 Scre[facility] 00:00:00 neoplasm of colon (procedure) [code = 350276258] Future Scheduled 2020-02-14 Screening for malignant [facility] 00:00:00 neoplasm of colon (procedure) [code = 277358965] Future Scheduled 2020-02-14 Screening for malignant [facility] 00:00:00 neoplasm of colon (procedure) [code = 961351747] Future Scheduled 2020-02-14 Screening for malignant [facility] 00:00:00 neoplasm of colon (procedure) [code = 923180061] Future Scheduled 2020-02-14 Screening for malignant [facility] 00:00:00 neoplasm of colon (procedure) [code = 072979171] Future Scheduled 2020-02-14 Screening for malignant [facility] 00:00:00 neoplasm of colon (procedure) [code = 883732491] Future Scheduled 2020-02-14 Screening for malignant [facility] 00:00:00 neoplasm of colon (procedure) [code = 222272688] Future Scheduled 2020-02-14 Screening for malignant [facility] 00:00:00 neoplasm of colon (procedure) [code = 234263832] Future Scheduled 2020-02-14 Screening for malignant [facility] 00:00:00 neoplasm of colon (procedure) [code = 739414961] Future Scheduled 2020-02-14 Screening for malignant [facility] 00:00:00 neoplasm of colon (procedure) [code = 831986645] Future 2020-02-14 Screening for malignant [facility] 00:00:00 neoplasm of colon (procedure) [code = 104441361] Future Scheduled 2020-02-14 Screening for malignant [facility] 00:00:00 neoplasm of colon (procedure) [code = 196765011] Future 2020-02-14 Screening for malignant [facility] 00:00:00 neoplasm of colon (procedure) [code = 604563677] Future Scheduled 2020-02-14 Screening for malignant [facility] 00:00:00 neoplasm of colon (procedure) [code = 932577235] Future Scheduled 2020-02-14 Screening for malignant [facility] 00:00:00 neoplasm of colon (procedure) [code = 787511451] Future Scheduled 2020-02-14 Screening for malignant [facility] 00:00:00 neoplasm of colon (procedure) [code = 604312418] Future Scheduled 2020-02-14 Screening for malignant [facility] 00:00:00 neoplasm of colon (procedure) [code = 720931864] Future Scheduled 2020-02-14 Screening for malignant [facility] 00:00:00 neoplasm of colon (procedure) [code = 464803136] Future Scheduled 2020-02-14 Screening for malignant [facility] 00:00:00 neoplasm of colon (procedure) [code = 425377432] Future Scheduled 2020-02-14 Screening for malignant [facility] 00:00:00 neoplasm of colon (procedure) [code = 278475120] Future Scheduled 2020-02-14 Screening for malignant [facility] 00:00:00 neoplasm of colon (procedure) [code = 051788115] Future Scheduled 2020-02-14 Screening for malignant [facility] 00:00:00 neoplasm of colon (procedure) [code = 640609234] Future Scheduled 2020-02-14 SHINGLES VACCINES (1 of [facility]:00 2) [code = SHINGLES [facility] VACCINES (1 of 2)] Future Scheduled 2020-02-14 SHINGLES VACCINES ([address] [facility] 00:00:00 2) [code = SHINGLES [facility] VACCINES (1 of 2)] Future Scheduled 2020-02-14 SHINGLES VACCINES ([address] [facility] 00:00:00 2) [code = SHINGLES [facility] VACCINES (1 of 2)] Future Scheduled 2020-02-14 SHINGLES VACCINES ([address] [facility] 00:00:00 2) [code = SHINGLES [facility] VACCINES (1 of 2)] Future Scheduled 2005 Lipid panel (procedure) [facility] 00:00:00 [code = 20936976] Medical Ce [facility]ter Future Scheduled 2005 Lipid panel (procedure) [facility] 00:00:00 [code = 31046687] Medical Ce [facility]ter Future Scheduled 2005 Lipid panel (procedure) [facility] 00:00:00 [code = 74740902] Medical Ce [facility]ter Future Scheduled 2005 Lipid panel (procedure) [facility] 00:00:00 [code = 93495668] Medical Ce [facility]ter Future Scheduled 2005 Lipid panel (procedure) [facility] 00:00:00 [code = 98242047] Medical Ce [facility]ter Future Scheduled 2005 Lipid panel (procedure) [facility] 00:00:00 [code = 61249879] Medical Ce [facility]ter Future Scheduled 2005 Lipid panel (procedure) [facility] 00:00:00 [code = 77788779] Medical Ce [facility]ter Future Scheduled 2005 Lipid panel (procedure) [facility] 00:00:00 [code = 71787544] Medical Ce [facility]ter Future Scheduled 2005 Lipid panel (procedure) [facility] 00:00:00 [code = 94665333] Medical Ce [facility]ter Future Scheduled 2005 Lipid panel (procedure) [facility] 00:00:00 [code = 20479832] Medical Ce [facility]ter Future Scheduled 2005 Lipid panel (procedure) [facility] 00:00:00 [code = 58699522] Medical Ce [facility]ter Future Scheduled 2005 Lipid panel (procedure) [facility] 00:00:00 [code = 40529078] Medical Ce [facility]ter Future Scheduled 2005 Lipid panel (procedure) [facility] 00:00:00 [code = 87479116] Medical Ce nter Future Scheduled 2005 Lipid panel (procedure) [facility] 00:00:00 [code = 20409378] Medical Ce [facility]ter Future Scheduled 2005 Lipid panel (procedure) [facility] 00:00:00 [code = 71655853] Medical Ce [facility]ter Future Scheduled 2005 Lipid panel (procedure) [facility] 00:00:00 [code = 15221203] Medical Ce [facility]ter Future Scheduled 2005 Lipid panel (procedure) [facility] 00:00:00 [code = 03363128] Medical Ce [facility]ter Future Scheduled 2005 Lipid panel (procedure) [facility] 00:00:00 [code = 49640199] Medical Ce [facility]ter Future Scheduled 2005 Lipid panel (procedure) [facility] 00:00:00 [code = 57308903] Medical Ce [facility]ter Future Scheduled 2005 Lipid panel (procedure) [facility] 00:00:00 [code = 09090257] Medical Ce [facility]ter Future Scheduled 2005 Lipid panel (procedure) [facility] 00:00:00 [code = 63319998] Medical Ce [facility]ter Future Scheduled 2005 Lipid panel (procedure) [facility] 00:00:00 [code = 96397160] Medical Ce [facility]ter Future Scheduled 2005 Lipid panel (procedure) [facility] 00:00:00 [code = 66398868] Medical Ce [facility]ter Future Scheduled 2005 Lipid panel (procedure) [facility] 00:00:00 [code = 58024366] Medical Ce [facility]ter Future Scheduled 2005 Lipid panel (procedure) [facility] 00:00:00 [code = 49249238] Medical Ce [facility]ter Future Scheduled 2005 Lipid panel (procedure) [facility] 00:00:00 [code = 37770267] Medical Ce nter Future Scheduled 1989 DTAP/TDAP/TD [...] colon [facility] (procedure) [code = 778654444] Future Scheduled 1970 Screening for malignant [facility] 00:00:00 neoplasm of colon [facility] (procedure) [code = 718414343] Future Scheduled 1970 Sigmoidoscopy [facility] Future Scheduled 1970 CT Colonography (combo) [facility] 00:00:00 [code = CT [facility] ([facility] Future Scheduled 1970 Screening for malignant [facility] 00:00:00 neoplasm of colon [facility] (procedure) [code = 282383053] Future Scheduled 1970 Screening for malignant [facility] 00:00:00 neoplasm of colon [facility] (procedure) [code = 861308816] Future Scheduled 1970 S[facility]oidoscopy [facility] Future Scheduled 1970 CT Colonography (combo) [facility] 00:00:00 [code = CT [facility] ([facility])] Future Scheduled 1970 Screening for malignant [facility] 00:00:00 neoplasm of colon [facility] (procedure) [code = 413726626] Future Scheduled 1970 Screening for malignant [facility] 00:00:00 neoplasm of colon [facility] (procedure) [code = 859946591] Future Scheduled 1970 S[facility]oidoscopy [facility] Future Scheduled 1970 CT Colonography (combo) [facility] 00:00:00 [code = CT [facility] ([facility])] Future Scheduled 1970 Screening for malignant [facility] 00:00:00 neoplasm of colon [facility] (procedure) [code = 143668842] Future Scheduled 1970 Screening for malignant [facility] 00:00:00 neoplasm of colon [facility] (procedure) [code = 167823012] Future Scheduled 1970 Sigmoidoscopy [facility] Future Scheduled 1970 CT Colonography (combo) [facility] 00:00:00 [code = CT [facility] ([facility])] Future Scheduled 1970 Screening for malignant [facility] 00:00:00 neoplasm of colon [facility] (procedure) [code = 627099030] Future Scheduled 1970 Screening for malignant [facility] 00:00:00 neoplasm of colon [facility] (procedure) [code = 729980263] Future Scheduled 1970 S[facility]oidoscopy [facility] Cent[facility] Future Scheduled 1970 CT Colonography (combo) [facility] 00:00:00 [code = CT Colonography [facility] (combo)] Future Scheduled 1970 Screening for malignant [facility] 00:00:00 neoplasm of colon [facility] Ce [facility] (procedure) [code = 472993844] Future Scheduled 1970 Screening for malignant [facility] 00:00:00 neoplasm of colon [facility] (procedure) [code = 858503185] Future Scheduled 1970 Sigmoidoscopy [facility]code [facility]] [facility] Future Scheduled 1970 CT Colonography (combo) [facility] 00:00:00 [code = CT [facility] ([facility])] Future Scheduled 1970 Screening for malignant [facility] 00:00:00 neoplasm of colon [facility] (procedure) [code = 248227054] Future Scheduled 1970 Screening for malignant [facility] 00:00:00 neoplasm of colon [facility] (procedure) [code = 455378453] Future Scheduled 1970 Sigmoidoscopy [facility]00 Sigmoidoscopy] Medical Cente r Future Scheduled 1970 CT Colonography (combo) [facility] 00:00:00 [code = CT Colonography [facility] (combo)] Future Scheduled 1970 Screening for malignant [facility] 00:00:00 neoplasm of colon Medical Ce nter (procedure) [code = 231667982] Future Scheduled 1970 Screening for malignant [facility] 00:00:00 neoplasm of colon Medical Ce nter (procedure) [code = 376010998] Future Scheduled 1970 S[facility]oidoscopy [facility] = [facility]oscopy] Medical Angele r Future Scheduled 1970 CT Colonography (combo) [facility] 00:00:00 [code = CT [facility]ography [facility] (combo)] Future Scheduled 1970 Screening for malignant [facility] 00:00:00 neoplasm of colon Medical Ce nter (procedure) [code = 750105882] Future Scheduled 1970 Screening for malignant [facility] 00:00:00 neoplasm of colon Medical Ce nter (procedure) [code = 930504465] Future Scheduled 1970 Sigmoidoscopy [facility]code = [facility] Sigmoidoscopy] Medical Seda r Future Scheduled 1970 CT Colonography (combo) [facility] 00:00:00 [code = CT [facility] (combo)] Future Scheduled 1970 Screening for malignant [facility] 00:00:00 neoplasm of colon Medical Ce nter (procedure) [code = 362058768] Future Scheduled 1970 Screening for malignant [facility] 00:00:00 neoplasm of colon Medical Ce nter (procedure) [code = 107081979] Future Scheduled 1970 Sigmoidoscopy [facility]code = [facility] Sigmoidoscopy] Medical Seda r Future Scheduled 1970 CT Colonography (combo) [facility] 00:00:00 [code = CT [facility]ography [facility] (combo)] Future Scheduled 1970 Screening for malignant [facility] 00:00:00 neoplasm of colon Medical Ce nter (procedure) [code = 876066303] Future Scheduled 1970 Screening for malignant [facility] 00:00:00 neoplasm of colon Medical Ce nter (procedure) [code = 439527663] Future Scheduled 1970 Sigmoidoscopy [facility]code = [facility] S[facility]oidoscopy] Medical Cente r Future Scheduled 1970 CT Colonography (combo) [facility] 00:00:00 [code = CT [facility]ography [facility] (combo)] Future Scheduled 1970 Screening for malignant [facility] 00:00:00 neoplasm of colon Medical Ce nter (procedure) [code = 608901029] Future Scheduled 1970 Screening for malignant [facility] 00:00:00 neoplasm of colon Medical Ce nter (procedure) [code = 480756039] Future Scheduled 1970 Sigmoidoscopy [code = [facility] S[facility]oidoscopy] Medical Cente r Future Scheduled 1970 CT Colonography (combo) [facility] 00:00:00 [code = CT [facility] (combo)] Future Scheduled 1970 Screening for malignant [facility] 00:00:00 neoplasm of colon Medical Ce nter (procedure) [code = 741724181] Future Scheduled 1970 Screening for malignant [facility] 00:00:00 neoplasm of colon Medical Ce nter (procedure) [code = 672756350] Future Scheduled 1970 Sigmoidoscopy [code = [facility] Sigmoidoscopy] Medical Cente r Future Scheduled 1970 CT Colonography (combo) [facility] 00:00:00 [code = CT [facility]ography [facility] (combo)] Future Scheduled 1970 Screening for malignant [facility] 00:00:00 neoplasm of colon Medical Ce nter (procedure) [code = 367691046] Future Scheduled 1970 Screening for malignant [facility] 00:00:00 neoplasm of colon Medical Ce nter (procedure) [code = 847131135] Future Scheduled 1970 Sigmoidoscopy [facility]code = [facility] Sigmoidoscopy] Medical Angele r Future Scheduled 1970 CT Colonography (combo) [facility] 00:00:00 [code = CT [facility] (com[facility])] Future Scheduled 1970 Screening for malignant [facility] 00:00:00 neoplasm of colon Medical Ce nter (procedure) [code = 219442364] Future Scheduled 1970 Screening for malignant [facility] 00:00:00 neoplasm of colon Medical Ce nter (procedure) [code = 325728725] Future Scheduled 1970 Sigmoidoscopy [facility] Sigmoidoscopy] Medical Angele r Future Scheduled 1970 CT Colonography (combo) [facility] 00:00:00 [code = CT [facility]ography [facility] (combo)] Future Scheduled 1970 Screening for malignant [facility] 00:00:00 neoplasm of colon Medical Ce nter (procedure) [code = 922562595] Future Scheduled 1970 Screening for malignant [facility] 00:00:00 neoplasm of colon Medical Ce nter (procedure) [code = 640266046] Future Scheduled 1970 Sigmoidoscopy [code = [facility] 00:[facility] Sigmoidoscopy] Medical Seda r Future Scheduled 1970 CT Colonography (combo) [facility] 00:00:00 [code = CT [facility] (com[facility])] Future Scheduled 1970 Screening for malignant [facility] 00:00:00 neoplasm of colon Medical Ce nter (procedure) [code = 623151566] Future Scheduled 1970 Screening for malignant [facility] 00:00:00 neoplasm of colon Medical Ce nter (procedure) [code = 492155474] Future Scheduled 1970 Sigmoidoscopy [facility]code [facility] Sigmoidoscopy] Medical Seda r Future Scheduled 1970 CT Colonography (combo) [facility] 00:00:00 [code = CT [facility] ([facility])] Future Scheduled 1970 Screening for malignant [facility] 00:00:00 neoplasm of colon Medical Ce nter (procedure) [code = 724847871] Future Scheduled 1970 Screening for malignant [facility] 00:00:00 neoplasm of colon Medical Ce nter (procedure) [code = 747491420] Future Scheduled 1970 Sigmoidoscopy [facility]code = [facility] S[facility]oidoscopy] Medical Cente r Future Scheduled 1970 CT Colonography (combo) [facility] 00:00:00 [code = CT [facility] ([facility])] Future Scheduled 1970 Screening for malignant [facility] 00:00:00 neoplasm of colon Medical Ce nter (procedure) [code = 211852878] Future Scheduled 1970 Screening for malignant [facility] 00:00:00 neoplasm of colon Medical Ce nter (procedure) [code = 626549670] Future Scheduled 1970 Sigmoidoscopy [code = [facility] 00:[facility] Sigmoidoscopy] Medical Cente r Future Scheduled 1970 CT Colonography (combo) [facility] 00:00:00 [code = CT [facility]ography [facility] (combo)] Future Scheduled 1970 Screening for malignant [facility] 00:00:00 neoplasm of colon Medical Ce nter (procedure) [code = 932176384] Future Scheduled 1970 Screening for malignant [facility] 00:00:00 neoplasm of colon Medical Ce nter (procedure) [code = 144372720] Future Scheduled 1970 Sigmoidoscopy [code = [facility] 00:[facility] Sigmoidoscopy] Medical Cente r Future Scheduled 1970 CT Colonography (combo) [facility] 00:00:00 [code = CT [facility] (com[facility])] Future Scheduled 1970 Screening for malignant [facility] 00:00:00 neoplasm of colon Medical Ce nter (procedure) [code = 567428430] Future Scheduled 1970 Screening for malignant [facility] 00:00:00 neoplasm of colon Medical Ce nter (procedure) [code = 302900571] Future Scheduled 1970 Sigmoidoscopy [code = [facility] Sigmoidoscopy] Medical Angele r Future Scheduled 1970 CT Colonography (combo) [facility] 00:00:00 [code = CT [facility] (com[facility])] Future Scheduled 1970 Screening for malignant [facility] 00:00:00 neoplasm of colon Medical Ce nter (procedure) [code = 574361779] Future Scheduled 1970 Screening for malignant [facility] 00:00:00 neoplasm of colon Medical Ce nter (procedure) [code = 596060821] Future Scheduled 1970 Sigmoidoscopy [code = [facility] Sigmoidoscopy] Medical Angele r Future Scheduled 1970 CT Colonography (combo) [facility] 00:00:00 [code = CT [facility] (com[facility])] Future Scheduled 1970 Screening for malignant [facility] 00:00:00 neoplasm of colon Medical Ce nter (procedure) [code = 941094365] Future Scheduled 1970 Screening for malignant [facility] 00:00:00 neoplasm of colon Medical Ce nter (procedure) [code = 144048548] Future Scheduled 1970 Sigmoidoscopy [code = [facility] Sigmoidoscopy] Medical Angele r Future Scheduled 1970 CT Colonography (combo) [facility] 00:00:00 [code = CT [facility]ography [facility] (combo)] Future Scheduled 1970 Screening for malignant [facility] 00:00:00 neoplasm of colon Medical Ce nter (procedure) [code = 069958946] Future Scheduled 1970 Screening for malignant [facility] 00:00:00 neoplasm of colon Medical Ce nter (procedure) [code = 209295432] Future Scheduled 1970 Sigmoidoscopy [code = [facility]code [facility] Future Scheduled 1970 Screening for malignant [facility] 00:00:00 neoplasm of colon Medical Ce nter (procedure) [code = 831601987] Future Scheduled 1970 Screening for malignant [facility] 00:00:00 neoplasm of colon Medical Ce nter (procedure) [code = 907220669] Future Scheduled 1970 Sigmoidoscopy [facility]code [facility] Encounters Start End Encounter Admission Attending Care Care Encounter Source Date/Time Date/Time Type Type Clinicians Facility Department ID 2020-02-23 Inpatient [facility] [id number] [facility] 18:42:00 89 [facility] 2020-02-17 Inpatient EM Avtar, [facility] [id number] [facility] 00:22:00 Oladipo 75 [facility] 2020-01-05 Inpatient UR Eliazar, HCAPM MEDI.01 [id number] [facility] 20:23:00 Mark 40 [facility] 2019-12-13 Inpatient HCAMN JULIA [id number] [facility] 17:52:00 47 [facility] 2022-03-29 2022-03-29 Emergency EM White, [facility] AERS [id number] [facility] 14:26:00 16:45:00 Steve 28 [facility] 2022-03-29 2022-03-29 Emergency EM White, HCACL HC[facility] [id number] [facility] 14:26:00 16:45:00 Steve [id number] [facility] 2022-03-25 2022-03-26 Inpatient E RICHARD [facility] MED [id number] BL 13:38:00 10:16:00 , 2022-03-15 2022-03-18 Emergency E RADHA [facility] [id number] [facility] 13:36:00 18:59:00 [facility] 2022-03-13 2022-03-13 Emergency [facility] [address] [id number] Combs 15:33:00 20:25:00 [facility] 2022-03-13 2022-03-13 Outpatient RONALD, [facility] [id number] Combs 00:00:00 00:00:00 [facility] 2022-03-06 2022-03-09 [facility] [id number] 12:16:00 12:55:00 Encounter Dee Dee Montalvo Fang-Ying M edical Heinen, [facility] Anya León Odell Colin 2022-03-06 2022-03-09 Inpatient ER LEÓN JOYNER [facility] Emergency 20 [id number] [facility] 12:16:00 12:55:00 2022-03-06 2022-03-09 [facility] [id number] 12:16:00 12:55:00 Encounter Dee Dee Montalvo Fang[facility]Ying M edical [facility]inen[facility] Le[facility] Joyner Colin 2022-03-06 2022-03-06 Outpatient [facility] [id number] [facility] 00:00:00 23:59:00 Helioebenezer funk of Medicin e 2022-03-06 2022-03-06 Orders [facility] [id number] 00:00:00 00:00:00 Only [facility] 2022-03-06 2022-03-06 Travel [facility] [id number] [facility] 00:[facility]00 00:00:00 [facility] 2022-03-06 2022-03-06 Orders [facility] [id number] 00:00:00 00:00:00 Only [facility] 2022-03-06 2022-03-06 Travel [facility] [id number] [facility] 00:00:00 00:00:00 [facility] 2022-02-18 2022-02-20 Emergency [facility] [id number] Combs 13:58:00 11:55:00 [facility] Kobe Blake 2022-02-18 2022-02-18 Emergency RAVENCOX BRANSON [id number] Combs 15:19:05 15:23:18 [facility] 2022-02-18 2022-02-18 Outpatient 1 TEJAS [facility] [id number] Lynne 13:58:00 13:58:00 [facility] 2022-02-18 2022-02-18 [facility] [id number] Combs 00:00:00 00:00:00 , OSCAR blanchard 2022-02-07 2022-02-11 [facility] [id number] Combs 13:40:00 13:22:00 Encounter Meghan Islas [facility] Teresa Alves 2022-02-07 2022-02-07 Outpatient 1 MEGHAN ISLAS [facility] [id number] Combs 13:40:00 13:40:00 [facility] 2022-01-30 2022-01-30 Emergency EM Tara [facility] [id number] [facility] 17:02:00 18:29:00 Dwain 53 [facility] 2022-01-30 2022-01-30 Emergency SEAN Pacheco [facility] [id number] [facility] 17:02:00 18:29:00 Dwain [id number] [facility] 2022-01-22 2022-01-22 Emergency [facility] [address] [id number] Lynne 17:24:00 20:39:00 [facility] 2022-01-16 2022-01-21 Emergency Raymon Martin [facility] [address] [id number] Lynne 11:04:00 18:08:00 Karin Bassett [facility] Darrion Craig Parth Esther 2022-01-19 2022-01-19 Outpatient [facility] [id number] Lynne 12:34:08 13:29:31 [facility] 2022-01-16 2022-01-16 Outpatient [facility] [id number] Combs 19:42:28 20:01:28 [facility] 2022-01-16 2022-01-16 Outpatient 1 DANYELLECOX BRANSON [id number] Combs 11:04:00 11:04:00 KARIN blanchard 2022-01-10 2022-01-11 Emergency TaylorBert morales [facility] [address] [id number] Combs 10:58:00 11:20:00 Helene Ring [facility] Merissa Richards 2022-01-10 2022-01-10 Outpatient 1 JUSTIN [facility] [id number] Combs 10:58:00 10:58:00 [facility] 2022-01-08 2022-01-09 Emergency [facility] [address] [id number] Combs 17:57:00 02:50:00 [facility] 2022-01-08 2022-01-08 Emergency [facility] [id number] Combs 21:40:34 21:50:19 [facility] 2021-09-23 2021-09-23 Emergency EM Raffaele Levi [facility] AERS [id number] [facility] 19:35:00 21:10:00 74 [facility] 2021-09-13 2021-09-13 Emergency EM [facility]affaele Levi [facility] [id number] [facility] 14:57:00 16:37:00 06 [facility] 2021-07-27 2021-07-27 Emergency EM Koussayer, HCAMN JULIA [id number] [facility] 10:15:00 12:36:00 Tarek 17 [facility] 2021-07-22 2021-07-22 Emergency EM Marcelina, HCACL AERS [id number] [facility] 04:25:00 08:20:00 Tarrell 74 [facility] 2021-06-27 2021-06-27 Emergency EM White, [facility] AERS [id number] [facility] 15:31:00 17:37:00 Steve 17 [facility] 2021-04-28 2021-05-01 Inpatient EM Aisha, [facility] [id number] [facility] 21:05:00 14:18:00 Christopher 03 [facility] 2020-02-24 2020-02-24 Outpatient Eliazar, HCACL LABO [id number] [facility] 07:51:00 07:51:00 Mark 96 [facility] 2020-02-18 2020-02-18 Outpatient Avtar, HCACL LABO [id number] [facility] 00:26:00 00:26:00 Oladipo 05 [facility] 2020-01-05 2020-01-05 Outpatient Eliazar, HCACL [facility] [id number] [facility] 23:52:00 23:52:00 Mark 24 [facility] 2017-11-02 2017-11-02 Emergency E [facility] MED [id number] 08:33:00 08:33:00 [facility] 2017-08-05 2017-08-05 Outpatient [facility] [id number] Combs 00:00:00 00:00:00 [facility] 2017-07-28 2017-07-28 Outpatient [facility] [id number] Combs 00:00:00 00:00:00 [facility] 2017-06-24 2017-06-24 Outpatient [facility] [id number] Combs 00:00:00 00:00:00 [facility] 2017-06-22 2017-06-22 Emergency [facility] [id number] Combs 21:37:29 21:37:29 [facility] 2017-06-22 2017-06-22 Emergency [facility] [address] MED [id number] Combs 21:06:00 21:06:00 Health 2017-06-22 2017-06-22 Outpatient [facility] [id number] Combs 10:02:31 10:02:31 Health 2017-06-09 2017-06-09 Outpatient [facility] [id number] Combs 00:00:00 00:00:00 Health 2017-06-09 2017-06-09 Outpatient [facility] [id number] Combs 00:00:00 00:00:00 [facility] 2017-05-08 2017-05-08 Emergency [facility] [address] MED [id number] Combs 01:04:44 01:04:44 [facility] 2017-05-05 2017-05-05 Emergency E [facility] MED [id number] 08:11:00 08:11:00 [facility] 2017-04-15 2017-04-15 Emergency E [facility] MED [id number] 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 BASIC METABOLIC [id number] 14:56:00 Test Item Value Reference Range Interpretation [...] MG/DL 70-110 N - XR CHEST 1 [id number] 00:00:00 [facility] : 1970 Sex: M FAX: Steve Urias MD [phone] [place] Name: MARIA ISABEL JOSEPH FSED : 1970 Age/S: 52/M [address] [facility] Unit #: [id number] [place]: [place] [address] Phys: Steve Urias MD Acct: [id number] DisDate: Status: REG ER PHONE #: Exam Date: 03/29/2022 1501 FAX #: Reason: Weakness EXAMS: CPT CODE: [id number] XR CHEST 1 V 69022 PROCEDURE INFORMATION: Exam: XR Chest Exam date [...] M.D. CC: Steve Urias MD Technologist: Avtar Lang, RT(R)(CT) Trnscrd Date/Time/By: 03/29/2022 (7600) : By: GarettTTV Orig Print D/T: S: 03/29/2022 (2422) PAGE 1 Signed ReportHEPATIC FUNCTION [id number] 06:45:03 Test Item Value Reference Range Interpretation [...] (test code = 13 U/L 6-55 347) [employer] ID - ERWIN WBASIC METABOLIC [id number] 06:45:02 Test Item Value Reference Range Interpretation [...] S NOT APPLICABLE FOR DIALYSIS PATIEN TS. [employer] Officer ID Philipp HOOD WCBC W/PLT COUNT & AUTO [id number] 06:26:54 Test Item Value Reference Range Interpretation [...] (BEAKER) (test code = 2801) U/S, RENAL, [id number] 19:23:00Reason for exam:->acute kidney injury [facility] 1970 [...] SARS-Co V-2 (test code = target nucleic 63542-6) acids are not detected in thi s [...] revoked sooner. Fact Sheet for Healthcare Providers: https://www.[employer]/Documents/Xp ert%20Xpress%20SAR S%20CoV-2/Fact%20S heets/302-3802%20S ARS-COV-2%20HEALTH CARE%20PROVIDERS%2 0FACT%20SHEET.pdf Fact Sheet for Healthcare Patients: https://www.[employer]/Documents/Xp ert%20Xpress%20SAR S%20CoV-2/Fact%20S heets/302-3801%20S ARS-COV-2%20PATIEN T%20FACT%20SHEET.p df Lab Interpretation Normal (test code = 90549-0) [facility]2022-03-06 19:17:07 Test Item Value Reference Interpretation Comments Range SARS-COV2/RT-PCR Negative Negative The SARS-Co V-2 (test code = target nucleic 47417-4) acids are not detected in thi s [...] revoked sooner. Fact Sheet for Healthcare Providers: https://www.[employer]/Documents/Xp ert%20Xpress%20SAR S%20CoV-2/Fact%20S heets/302-3802%20S ARS-COV-2%20HEALTH CARE%20PROVIDERS%2 0FACT%20SHEET.pdf Fact Sheet for Healthcare Patients: https://www.[employer]/Documents/Xp ert%20Xpress%20SAR S%20CoV-2/Fact%20S heets/302-3801%20S ARS-COV-2%20PATIEN T%20FACT%20SHEET.p df Lab Interpretation Normal (test code = 77059-6) [facility]2022-03-06 19:17:07 Test Item Value Reference Interpretation Comments Range SARS-COV2/RT-PCR Negative Negative The SARS-Co V-2 (test code = target nucleic 40760-5) acids are not detected in thi s [...] om SARS-CoV-2 in a nasopharyngeal swab [facility] s suspected of COVID-19 by [...] revoked sooner. Fact Sheet for Healthcare Providers: https://www.[employer]/Documents/Xp ert%20Xpress%20SAR S%20CoV-2/Fact%20S heets/302-3802%20S ARS-COV-2%20HEALTH CARE%20PROVIDERS%2 0FACT%20SHEET.pdf Fact Sheet for Healthcare Patients: https://www[employer]/Documents/Xp ert%20Xpress%20SAR S%20CoV-2/Fact%20S heets/302-3801%20S ARS-COV-2%20PATIEN T%20FACT%20SHEET.p df Lab Interpretation Normal (test code = 66688-4) [facility]omatic [facility]2022-03-06 19:17:07 Test Item Value Reference Interpretation Comments Range SARS-COV2/RT-PCR Negative Negative The SARS-Co V-2 (test code = target nucleic 71791-4) acids are not detected in thi s [...] revoked sooner. Fact Sheet for Healthcare Providers: https://www.[employer]/Documents/Xp ert%20Xpress%20SAR S%20CoV-2/Fact%20S heets/302-3802%20S ARS-COV-2%20HEALTH CARE%20PROVIDERS%2 0FACT%20SHEET.pdf Fact Sheet for Healthcare Patients: https://www.[employer]/Documents/Xp ert%20Xpress%20SAR S%20CoV-2/Fact%20S heets/302-3801%20S ARS-COV-2%20PATIEN T%20FACT%20SHEET.p df Lab Interpretation Normal (test code = 03285-6) [facility]As[facility]omatic ONLY)2022-03-06 19:17:07 Test Item Value Reference Interpretation Comments Range SARS-COV2/RT-PCR Negative Negative The SARS-Co V-2 (test code = target nucleic 92749-2) acids are not detected in thi s [...] revoked sooner. Fact Sheet for Healthcare Providers: https://www.[employer]/Documents/Xp ert%20Xpress%20SAR S%20CoV-2/Fact%20S heets/302-3802%20S ARS-COV-2%20HEALTH CARE%20PROVIDERS%2 0FACT%20SHEET.pdf Fact Sheet for Healthcare Patients: https://www[employer]/Documents/Xp ert%20Xpress%20SAR S%20CoV-2/Fact%20S heets/302-3801%20S ARS-COV-2%20PATIEN T%20FACT%20SHEET.p df Lab Interpretation Normal (test code = 11133-5) [facility]omatic ONLY)2022-03-06 19:17:07 Test Item Value Reference Interpretation Comments Range SARS-COV2/RT-PCR Negative Negative The SARS-Co V-2 (test code = target nucleic 29840-6) acids are not detected in thi s [...] revoked sooner. Fact Sheet for Healthcare Providers: https://www.[employer]/Documents/Xp ert%20Xpress%20SAR S%20CoV-2/Fact%20S heets/302-3802%20S ARS-COV-2%20HEALTH CARE%20PROVIDERS%2 0FACT%20SHEET.pdf Fact Sheet for Healthcare Patients: https://www.[employer]/Documents/Xp ert%20Xpress%20SAR S%20CoV-2/Fact%20S heets/302-3801%20S ARS-COV-2%20PATIEN T%20FACT%20SHEET.p df Lab Interpretation Normal (test code = 26622-8) [facility]omatic ONLY)2022-03-06 19:17:07 Test Item Value Reference Interpretation Comments Range SARS-COV2/RT-PCR Negative Negative The SARS-Co V-2 (test code = target nucleic 31899-3) acids are not detected in thi s [...] revoked sooner. Fact Sheet for Healthcare Providers: https://www.[employer]/Documents/Xp ert%20Xpress%20SAR S%20CoV-2/Fact%20S heets/302-3802%20S ARS-COV-2%20HEALTH CARE%20PROVIDERS%2 0FACT%20SHEET.pdf Fact Sheet for Healthcare Patients: https://www.[employer]/Documents/Xp ert%20Xpress%20SAR S%20CoV-2/Fact%20S heets/302-3801%20S ARS-COV-2%20PATIEN T%20FACT%20SHEET.p df Lab Interpretation Normal (test code = 35740-6) [place] [facility]06 19:17:07 Test Item Value Reference Interpretation Comments Range SARS-COV2/RT-PCR Negative Negative The SARS-Co V-2 (test code = target nucleic 21351-7) acids are not detected in thi s [...] revoked sooner. Fact Sheet for Healthcare Providers: https://www.[employer]/Documents/Xp ert%20Xpress%20SAR S%20CoV-2/Fact%20S heets/302-3802%20S ARS-COV-2%20HEALTH CARE%20PROVIDERS%2 0FACT%20SHEET.pdf Fact Sheet for Healthcare Patients: https://www.[employer]/Documents/Xp ert%20Xpress%20SAR S%20CoV-2/Fact%20S heets/302-3801%20S ARS-COV-2%20PATIEN T%20FACT%20SHEET.p df Lab Interpretation Normal (test code = 41781-5) [place] [facility]2022-03-06 19:17:07 Test Item Value Reference Interpretation Comments Range SARS-COV2/RT-PCR Negative Negative The SARS-Co V-2 (test code = target nucleic 59484-8) acids are not detected in thi s [...] revoked sooner. Fact Sheet for Healthcare Providers: https://www.[employer]/Documents/Xp ert%20Xpress%20SAR S%20CoV-2/Fact%20S heets/302-3802%20S ARS-COV-2%20HEALTH CARE%20PROVIDERS%2 0FACT%20SHEET.pdf Fact Sheet for Healthcare Patients: https://www.[employer]/Documents/Xp ert%20Xpress%20SAR S%20CoV-2/Fact%20S heets/302-3801%20S ARS-COV-2%20PATIEN T%20FACT%20SHEET.p df Lab Interpretation Normal (test code = 42172-5) [facility]2022-03-06 19:17:07 Test Item Value Reference Interpretation Comments Range SARS-COV2/RT-PCR Negative Negative The SARS-Co V-2 (test code = target nucleic 33473-1) acids are not detected in thi s [...] revoked sooner. Fact Sheet for Healthcare Providers: https://www.[employer]/Documents/Xp ert%20Xpress%20SAR S%20CoV-2/Fact%20S heets/302-3802%20S ARS-COV-2%20HEALTH CARE%20PROVIDERS%2 0FACT%20SHEET.pdf Fact Sheet for Healthcare Patients: https://www.[employer]/Documents/Xp ert%20Xpress%20SAR S%20CoV-2/Fact%20S heets/302-3801%20S ARS-COV-2%20PATIEN T%20FACT%20SHEET.p df Lab Interpretation Normal (test code = 36483-1) [facility]2022-03-06 19:17:07 Test Item Value Reference Interpretation Comments Range SARS-COV2/RT-PCR Negative Negative The SARS-Co V-2 (test code = target nucleic 84380-3) acids are not detected in thi s [...] revoked sooner. Fact Sheet for Healthcare Providers: https://www.[employer]/Documents/Xp ert%20Xpress%20SAR S%20CoV-2/Fact%20S heets/302-3802%20S ARS-COV-2%20HEALTH CARE%20PROVIDERS%2 0FACT%20SHEET.pdf Fact Sheet for Healthcare Patients: https://www.[employer]/Documents/Xp ert%20Xpress%20SAR S%20CoV-2/Fact%20S heets/302-3801%20S ARS-COV-2%20PATIEN T%20FACT%20SHEET.p df Lab Interpretation Normal (test code = 42972-0) [place] [facility]2022-03-06 19:17:07 Test Item Value Reference Interpretation Comments Range SARS-COV2/RT-PCR Negative Negative The SARS-Co V-2 (test code = target nucleic 37348-2) acids are not detected in thi s [...] revoked sooner. Fact Sheet for Healthcare Providers: https://www.[employer]/Documents/Xp ert%20Xpress%20SAR S%20CoV-2/Fact%20S heets/3023802%20S ARS-COV-2%20HEALTH CARE%20PROVIDERS%2 0FACT%20SHEET.pdf Fact Sheet for Healthcare Patients: https://www.[employer]/Documents/Xp ert%20Xpress%20SAR S%20CoV-2/Fact%20S heets/302-3801%20S ARS-COV-2%20PATIEN T%20FACT%20SHEET.p df Lab Interpretation Normal (test code = 68902-1) [place] [facility]2022-03-06 19:17:07 Test Item Value Reference Interpretation Comments Range SARS-COV2/RT-PCR Negative Negative The SARS-Co V-2 (test code = target nucleic 53703-2) acids are not detected in thi s [...] revoked sooner. Fact Sheet for Healthcare Providers: https://www.[employer]/Documents/Xp ert%20Xpress%20SAR S%20CoV-2/Fact%20S heets/302-3802%20S ARS-COV-2%20HEALTH CARE%20PROVIDERS%2 0FACT%20SHEET.pdf Fact Sheet for Healthcare Patients: https://www.[employer]/Documents/Xp ert%20Xpress%20SAR S%20CoV-2/Fact%20S heets/302-3801%20S ARS-COV-2%20PATIEN T%20FACT%20SHEET.p df Lab Interpretation Normal (test code = 69456-2) [place] [facility]2022-03-06 19:17:07 Test Item Value Reference Interpretation Comments Range SARS-COV2/RT-PCR Negative Negative The SARS-Co V-2 (test code = target nucleic 62660-9) acids are not detected in thi s [...] revoked sooner. Fact Sheet for Healthcare Providers: https://www.[employer]/Documents/Xp ert%20Xpress%20SAR S%20CoV-2/Fact%20S heets/302-3802%20S ARS-COV-2%20HEALTH CARE%20PROVIDERS%2 0FACT%20SHEET.pdf Fact Sheet for Healthcare Patients: https://www.[employer]/Documents/Xp ert%20Xpress%20SAR S%20CoV-2/Fact%20S heets/302-3801%20S ARS-COV-2%20PATIEN T%20FACT%20SHEET.p df Lab Interpretation Normal (test code = 93916-7) [place] [facility]2022-03-06 19:17:07 Test Item Value Reference Interpretation Comments Range SARS-COV2/RT-PCR Negative Negative The SARS-Co V-2 (test code = target nucleic 30005-4) acids are not detected in thi s [...] revoked sooner. Fact Sheet for Healthcare Providers: https://www.[employer]/Documents/Xp ert%20Xpress%20SAR S%20CoV-2/Fact%20S heets/3023802%20S ARS-COV-2%20HEALTH CARE%20PROVIDERS%2 0FACT%20SHEET.pdf Fact Sheet for Healthcare Patients: https://www.[employer]/Documents/Xp ert%20Xpress%20SAR S%20CoV-2/Fact%20S heets/302-3801%20S ARS-COV-2%20PATIEN T%20FACT%20SHEET.p df Lab Interpretation Normal (test code = 27596-0) [place] [facility]2022-03-06 19:17:07 Test Item Value Reference Interpretation Comments Range SARS-COV2/RT-PCR Negative Negative The SARS-Co V-2 (test code = target nucleic 28457-0) acids are not detected in thi s [...] revoked sooner. Fact Sheet for Healthcare Providers: https://www.[employer]/Documents/Xp ert%20Xpress%20SAR S%20CoV-2/Fact%20S heets/302-3802%20S ARS-COV-2%20HEALTH CARE%20PROVIDERS%2 0FACT%20SHEET.pdf Fact Sheet for Healthcare Patients: https://www.[employer]/Documents/Xp ert%20Xpress%20SAR S%20CoV-2/Fact%20S heets/302-3801%20S ARS-COV-2%20PATIEN T%20FACT%20SHEET.p df Lab Interpretation Normal (test code = 57232-2) [place] [facility]2022-03-06 19:17:07 Test Item Value Reference Interpretation Comments Range SARS-COV2/RT-PCR Negative Negative The SARS-Co V-2 (test code = target nucleic 22444-8) acids are not detected in thi s [...] (test code = This test has been IGLBERTO) authorized by FDA under an EUA for [...] revoked sooner. Fact Sheet for Healthcare Providers: https://www.[employer]/Documents/Xp ert%20Xpress%20SAR S%20CoV-2/Fact%20S heets/302-3802%20S ARS-COV-2%20HEALTH CARE%20PROVIDERS%2 0FACT%20SHEET.pdf Fact Sheet for Healthcare Patients: https://www.[employer]/Documents/Xp ert%20Xpress%20SAR S%20CoV-2/Fact%20S heets/302-3801%20S ARS-COV-2%20PATIEN T%20FACT%20SHEET.p df Lab Interpretation Normal (test code = 13879-9) [place] [facility]2022-03-06 19:17:07 Test Item Value Reference Interpretation Comments Range SARS-COV2/RT-PCR Negative Negative The SARS-Co V-2 (test code = target nucleic 14839-4) acids are not detected in thi s [...] (test code = This test has been GILEBRTO) authorized by FDA under an EUA for [...] revoked sooner. Fact Sheet for Healthcare Providers: https://www.[employer]/Documents/Xp ert%20Xpress%20SAR S%20CoV-2/Fact%20S heets/302-3802%20S ARS-COV-2%20HEALTH CARE%20PROVIDERS%2 0FACT%20SHEET.pdf Fact Sheet for Healthcare Patients: https://www.[employer]/Documents/Xp ert%20Xpress%20SAR S%20CoV-2/Fact%20S heets/302-3801%20S ARS-COV-2%20PATIEN T%20FACT%20SHEET.p df Lab Interpretation Normal (test code = 60967-5) [place] [facility]2022-03-06 19:17:07 Test Item Value Reference Interpretation Comments Range SARS-COV2/RT-PCR Negative Negative The SARS-Co V-2 (test code = target nucleic 41069-9) acids are not detected in thi s [...] revoked sooner. Fact Sheet for Healthcare Providers: https://www.[employer]/Documents/Xp ert%20Xpress%20SAR S%20CoV-2/Fact%20S heets/302-3802%20S ARS-COV-2%20HEALTH CARE%20PROVIDERS%2 0FACT%20SHEET.pdf Fact Sheet for Healthcare Patients: https://www.[employer]/Documents/Xp ert%20Xpress%20SAR S%20CoV-2/Fact%20S heets/302-3801%20S ARS-COV-2%20PATIEN T%20FACT%20SHEET.p df Lab Interpretation Normal (test code = 47142-3) [place] [facility]2022-03-06 19:17:07 Test Item Value Reference Interpretation Comments Range SARS-COV2/RT-PCR Negative Negative The SARS-Co V-2 (test code = target nucleic 74621-2) acids are not detected in thi s [...] revoked sooner. Fact Sheet for Healthcare Providers: https://www.[employer]/Documents/Xp ert%20Xpress%20SAR S%20CoV-2/Fact%20S heets/302-3802%20S ARS-COV-2%20HEALTH CARE%20PROVIDERS%2 0FACT%20SHEET.pdf Fact Sheet for Healthcare Patients: https://www.[employer]/Documents/Xp ert%20Xpress%20SAR S%20CoV-2/Fact%20S heets/302-3801%20S ARS-COV-2%20PATIEN T%20FACT%20SHEET.p df Lab Interpretation Normal (test code = 55118-5) [place] [facility]2022-03-06 19:17:07 Test Item Value Reference Interpretation Comments Range SARS-COV2/RT-PCR Negative Negative The SARS-Co V-2 (test code = target nucleic 18690-7) acids are not detected in thi s [...] revoked sooner. Fact Sheet for Healthcare Providers: https://www.[employer]/Documents/Xp ert%20Xpress%20SAR S%20CoV-2/Fact%20S heets/302-3802%20S ARS-COV-2%20HEALTH CARE%20PROVIDERS%2 0FACT%20SHEET.pdf Fact Sheet for Healthcare Patients: https://[employer]/Documents/Xp ert%20Xpress%20SAR S%20CoV-2/Fact%20S heets/302-3801%20S ARS-COV-2%20PATIEN T%20FACT%20SHEET.p df Lab Interpretation Normal (test code = 78482-2) [place] [facility]2022-03-06 19:17:07 Test Item Value Reference Interpretation Comments Range SARS-COV2/RT-PCR Negative Negative The SARS-Co V-2 (test code = target nucleic 73472-6) acids are not detected in thi s [...] revoked sooner. Fact Sheet for Healthcare Providers: https://www.[employer]/Documents/Xp ert%20Xpress%20SAR S%20CoV-2/Fact%20S heets/302-3802%20S ARS-COV-2%20HEALTH CARE%20PROVIDERS%2 0FACT%20SHEET.pdf Fact Sheet for Healthcare Patients: https://www.[employer]/Documents/Xp ert%20Xpress%20SAR S%20CoV-2/Fact%20S heets/302-3801%20S ARS-COV-2%20PATIEN T%20FACT%20SHEET.p df Lab Interpretation Normal (test code = 18976-2) [place] [facility]2022-03-06 19:17:07 Test Item Value Reference Interpretation Comments Range SARS-COV2/RT-PCR Negative Negative The SARS-Co V-2 (test code = target nucleic 12810-5) acids are not detected in thi s [...] revoked sooner. Fact Sheet for Healthcare Providers: https://www.[employer]/Documents/Xp ert%20Xpress%20SAR S%20CoV-2/Fact%20S heets/302-3802%20S ARS-COV-2%20HEALTH CARE%20PROVIDERS%2 0FACT%20SHEET.pdf Fact Sheet for Healthcare Patients: https://www.[employer]/Documents/Xp ert%20Xpress%20SAR S%20CoV-2/Fact%20S heets/302-3801%20S ARS-COV-2%20PATIEN T%20FACT%20SHEET.p df Lab Interpretation Normal (test code = 75757-8) [place] [facility]2022-03-06 19:17:07 Test Item Value Reference Interpretation Comments Range SARS-COV2/RT-PCR Negative Negative The SARS-Co V-2 (test code = target nucleic 61928-6) acids are not detected in thi s [...] revoked sooner. Fact Sheet for Healthcare Providers: https://www.[employer]/Documents/Xp ert%20Xpress%20SAR S%20CoV-2/Fact%20S heets/302-3802%20S ARS-COV-2%20HEALTH CARE%20PROVIDERS%2 0FACT%20SHEET.pdf Fact Sheet for Healthcare Patients: https://www.[employer]/Documents/Xp ert%20Xpress%20SAR S%20CoV-2/Fact%20S heets/302-3801%20S ARS-COV-2%20PATIEN T%20FACT%20SHEET.p df Lab Interpretation Normal (test code = 63086-9) [place] [facility]2022-03-06 19:17:07 Test Item Value Reference Interpretation Comments Range SARS-COV2/RT-PCR Negative Negative The SARS-Co V-2 (test code = target nucleic 72196-6) acids are not detected in thi s [...] revoked sooner. Fact Sheet for Healthcare Providers: https://www.[employer]/Documents/Xp ert%20Xpress%20SAR S%20CoV-2/Fact%20S heets/302-3802%20S ARS-COV-2%20HEALTH CARE%20PROVIDERS%2 0FACT%20SHEET.pdf Fact Sheet for Healthcare Patients: https://www.[employer]/Documents/Xp ert%20Xpress%20SAR S%20CoV-2/Fact%20S heets/302-3801%20S ARS-COV-2%20PATIEN T%20FACT%20SHEET.p df Lab Interpretation Normal (test code = 99743-4) [place] [facility])2022-03-06 19:17:07 Test Item Value Reference Range Interpretation Comments SARS-COV2/RT-PCR Negative Negative The SARS-Co V-2 target (test code = nucleic acids a re not 3500084) detected in thi s specimen. Negative result [...] revoked sooner. Fact Sheet for Healthcare Providers: https://www.[employer]/Documents/Xpert%20Xpress%20SARS%20CoV-2/Fact%20Sheets/302-3802%95CYYH-PQO-4%20 HEALTHCARE%20PROVIDERS%20FACT%20SHEET.pdf Fact Sheet for Healthcare Patients: https://www.[employer]/Documents/Xpert%20Xp ress%20SARS%20CoV-2/Fact%20Sheets/302-3801%28MXUG-VVD-5%20PATIENT%20FACT%20SHEET .pdfCREATINE KINASE (CK)2022-03-06 16:19:14 Test Item Value Reference Range Interpretation Comments CREATINE KINASE TOTAL (BEAKER) (test 141 U/L 29-200 code = 380) [employer] ID - BST4, [id number] 15:13:16 Test Item Value Reference Range Interpretation Comments FREE T4 (BEAKER) (test code = 655) 0.95 ng/dL 0.70-1.48 [employer] ID - BSTSH/FREE T4 IF [id number] 15:13:16 Test Item Value Reference Range Interpretation Comments THYROID STIMULATING HORMONE 2.060 uIU/mL 0.350-4.940 (BEAKER) (test code = 772) [employer] ID - BSB-TYPE NATRIURETIC FACTOR (BNP)2022-03-06 14:26:30 Test Item Value Reference Range Interpretation Comments B-TYPE NATRIURETIC PEPTIDE (BEAKER) < pg/mL 0-100 (test code = 700) [employer] Officer ID - JSHIGH SENSITIVITY TROPONIN [id number] 14:14:54 Test Item Value Reference Range Interpretation Comments HIGH SENSITIVITY < pg/ml See_Comment [Automated message] TROPONIN I (test code = The system which 9903383) generated this result transmitted ref erence range: <=35. Th e reference range was not used to interpr et this result as normal/abnormal . [employer] Officer ID - JSThe CLINICAL PHLEBOTOMIST STAT High Sensitivity Troponin-I results should be used in conjunctionwith other diagnostic information such as ECG, clinical observations and information, and patient symptoms to aid in the diagnosis of ND.RAD, CHEST, 1 VIEW, NON [id number] 14:10:00Reason for exam:- >NEUROLOGIC PROBLEMShould this be performed at the bedside?->Yes [facility] : 1970 Sex: MFINAL REPORT Chest, 1 view, 03/06/2022 2:03 PM. History: Neurologic problem. Comparison: 03/28/2019. Discussion: The cardiomediastinal silhouette and pulmonary vasculature are within normal limits for a portable exam. The lungs are clear without evidence of consolidation or effusion. Thesoft tissues and osseous structures are intact. IMPRESSION: No acute cardiopulmonary abnormality. Signed: Bernabe Brown [facility] Verified Date/Time: 03/06/2022 14:10:44 REHENSIVE METABOLIC [id number] 14:08:22 Test Item Value Reference Range Interpretation [...] S NOT APPLICABLE FOR DIALYSIS PATIEN TS. [employer] Revenue Officer ID - [id number] 14:07:49 Test Item Value Reference Range Interpretation Comments MAGNESIUM (BEAKER) (test code = 2.0 mg/dL 1.6-2.6 627) [employer] Officer ID - [id number] 14:07:49 Test Item Value Reference Range Interpretation Comments PHOSPHORUS (BEAKER) (test code = 5.6 mg/dL 2.3-4.7 H 604) [employer] Revenue Officer ID - JSLACTIC ACID, [id number] 13:51:04 Test Item Value Reference Range Interpretation Comments LACTATE BLOOD VENOUS 1.32 mmol/L 0.50-2.20 Specime n slightly (2) (BEAKER) (test hemolyzed code = 2872) [employer] Revenue Officer ID - JSCBC W/PLT COUNT & AUTO [id number] 13:47:24 Test Item Value Reference Range Interpretation [...] (BEAKER) (test code = 2801) Coronavirus, CoVID-19, [id number] 01:07:20 Test Item Value Reference Range Interpretation Comments COVID-19 (SARS-COV-2) Not Detected Not Detected INTERP RETATION: No (test code = 57445-8) detect able levels of SARS-CoV-2 Coronavirus (COVID-19) [...] SARS-CoV-2 mole cular diagnostic assa y utilizes Cane Piler Mediated Amplification ( TMA) technology to r apidly detect the SARS -CoV-2 (COVID-19) viru s from respiratory adriana ples. In accordance w ith the FDA's kamran nce document "Polic y for Diagnostic Test s for Coronavirus Disease-2019 du [facility] the Public [facility] Emergency", thi s test was developed, and its performance characteristics were verified by the [facility] molecular diagn ostics laboratory and is authorized for clinical diagno stic use. This labor atory is certified un estevan the Clinical Laboratory Improvement Amendments (CLI A) as qualified to pe rform high complexity clinical labora tory testing. Lab Interpretation Normal (test code = 14427-7) [facility] [id number] 01:07:20 Test Item Value Reference Range Interpretation Comments COVID-19 (SARS-COV-2) Not Detected Not Detected INTERP RETATION: No (test code = 46765-7) detect able levels of SARS-CoV-2 Coronavirus (COVID-19) [...] SARS-CoV-2 mole cular diagnostic assa y utilizes Cane Piler Mediated Amplification ( TMA) technology to r apidly detect the SARS -CoV-2 (COVID-19) viru s from respiratory adriana ples. In accordance w ith the FDA's kamran nce document "Polic y for Diagnostic Test s for Coronavirus Disease-2019 du [facility] the Public [facility] th Emergency", thi s test was developed, and its performance characteristics were verified by the [facility] molecular diagn ostics laboratory and is authorized for clinical diagno stic use. This labor atory is certified un est[place] the Clinical Laboratory Improvement Amendments (CLI A) as qualified to pe rform high complexity clinical labora tory testing. Lab Interpretation Normal (test code = 71894-9) [facility], [id number] 01:07:20 Test Item Value Reference Range Interpretation Comments COVID-19 (SARS-COV-2) Not Detected Not Detected INTERP RETATION: No (test code = 63777-6) detect able levels of SARS-CoV-2 Coronavirus (COVID-19) [...] SARS-CoV-2 mole cular diagnostic assa y utilizes Cane Piler Mediated Amplification ( TMA) technology to r apidly detect the SARS -CoV-2 (COVID-19) viru s from respiratory adriana ples. In accordance w ith the FDA's kamran nce document "Polic y for Diagnostic Test s for Coronavirus Disease-2019 du [place] the Public [facility]", thi s test was developed, and its performance characteristics were verified by the [facility] molecular diagn ostics laboratory and is authorized for clinical diagno stic use. This labor atory is certified un [place] the Clinical Laboratory Improvement Amendments (CLI A) as qualified to pe rform high complexity clinical labora tory testing. Lab Interpretation Normal (test code = 34725-7) Maged Aaronavirus, CoVID-19, [id number] 01:07:20 Test Item Value Reference Range Interpretation Comments COVID-19 (SARS-COV-2) Not Detected Not Detected INTERP RETATION: No (test code = 62544-1) detect able levels of SARS-CoV-2 Coronavirus (COVID-19) [...] SARS-CoV-2 mole cular diagnostic assa y utilizes Cane Piler Mediated Amplification ( TMA) technology to r apidly detect the SARS -CoV-2 (COVID-19) viru s from respiratory adriana ples. In accordance w ith the FDA's kamran nce document "Polic y for Diagnostic Test s for Coronavirus Disease-2019 du [place] the Public [facility]", thi s test was developed, and its performance characteristics were verified by the [facility] molecular diagn ostics laboratory and is authorized for clinical diagno stic use. This labor atory is certified un [place] the Clinical Laboratory Improvement Amendments (CLI A) as qualified to pe rform high complexity clinical labora tory testing. Lab Interpretation Normal (test code = 54918-1) Maged Aaronavirus, CoVID-19, [id number] 01:07:20 Test Item Value Reference Range Interpretation Comments COVID-19 (SARS-COV-2) Not Detected Not Detected INTERP RETATION: No (test code = 64351-7) detect able levels of SARS-CoV-2 Coronavirus (COVID-19) [...] SARS-CoV-2 mole cular diagnostic assa y utilizes Cane Piler Mediated Amplification ( TMA) technology to r apidly detect the SARS -CoV-2 (COVID-19) viru s from respiratory adriana ples. In accordance w ith the FDA's kamran nce document "Polic y for Diagnostic Test s for Coronavirus Disease-2019 du [facility] the [facility] Emergency", thi s test was developed, and its performance characteristics were verified by the [facility] molecular diagn ostics laboratory and is authorized for clinical diagno stic use. This labor atory is certified un [place] the Clinical Laboratory Improvement Amendments (CLI A) as qualified to pe rform high complexity clinical labora tory testing. Lab Interpretation Normal (test code = 86761-8) [facility], [id number] 01:07:20 Test Item Value Reference Range Interpretation Comments COVID-19 (SARS-COV-2) Not Detected Not Detected INTERP RETATION: No (test code = 07287-0) detect able levels of SARS-CoV-2 Coronavirus (COVID-19) [...] SARS-CoV-2 mole cular diagnostic assa y utilizes Cane Piler Mediated Amplification ( TMA) technology to r apidly detect the SARS -CoV-2 (COVID-19) viru s from respiratory adriana ples. In accordance w ith the FDA's kamran nce document "Polic y for Diagnostic Test s for Coronavirus Disease-2019 du [facility] the Public [facility]", thi s test was developed, and its performance characteristics were verified by the [facility] molecular diagn ostics laboratory and is authorized for clinical diagno stic use. This labor atory is certified un [place] the Clinical Laboratory Improvement Amendments (CLI A) as qualified to pe rform high complexity clinical labora tory testing. Lab Interpretation Normal (test code = 99810-6) [facility], [id number] 01:07:20 Test Item Value Reference Range Interpretation Comments COVID-19 (SARS-COV-2) Not Detected Not Detected INTERP RETATION: No (test code = 66785-8) detect able levels of SARS-CoV-2 Coronavirus (COVID-19) [...] SARS-CoV-2 mole cular diagnostic assa y utilizes Cane Piler Mediated Amplification ( TMA) technology to r apidly detect the SARS -CoV-2 (COVID-19) viru s from respiratory adriana ples. In accordance w ith the FDA's kamran nce document "Polic y for Diagnostic Test s for Coronavirus Disease-2019 du [place] the Public [facility]", thi s test was developed, and its performance characteristics were verified by the [facility] molecular diagn ostics laboratory and is authorized for clinical diagno stic use. This labor atory is certified un estevan the Clinical Laboratory Improvement Amendments (CLI A) as qualified to pe rform high complexity clinical labora tory testing. Lab Interpretation Normal (test code = 77899-5) [facility] Sur[facility]ronavirus, CoVID-19, [id number] 01:07:20 Test Item Value Reference Range Interpretation Comments COVID-19 (SARS-COV-2) Not Detected Not Detected INTERP RETATION: No (test code = 41604-3) detect able levels of SARS-CoV-2 Coronavirus (COVID-19) [...] SARS-CoV-2 mole cular diagnostic assa y utilizes Cane Piler Mediated Amplification ( TMA) technology to r apidly detect the SARS -CoV-2 (COVID-19) viru s from respiratory adriana ples. In accordance w ith the FDA's kamran nce document "Polic y for Diagnostic Test s for Coronavirus Disease-2019 du [facility] the [facility]", thi s test was developed, and its performance characteristics were verified by the [facility] molecular diagn ostics laboratory and is authorized for clinical diagno stic use. This labor atory is certified un est[place] the Clinical Laboratory Improvement Amendments (CLI A) as qualified to pe rform high complexity clinical labora tory testing. Lab Interpretation Normal (test code = 46724-8) [facility] [id number] 01:07:20 Test Item Value Reference Range Interpretation Comments COVID-19 (SARS-COV-2) Not Detected Not Detected INTERP RETATION: No (test code = 26495-5) detect able levels of SARS-CoV-2 Coronavirus (COVID-19) [...] SARS-CoV-2 mole cular diagnostic assa y utilizes Cane Piler Mediated Amplification ( TMA) technology to r apidly detect the SARS -CoV-2 (COVID-19) viru s from respiratory adriana ples. In accordance w ith the FDA's kamran nce document "Polic y for Diagnostic Test s for Coronavirus Disease-2019 du [facility] the [facility] Emergency", thi s test was developed, and its performance characteristics were verified by the [facility] molecular diagn ostics laboratory and is authorized for clinical diagno stic use. This labor atory is certified un est[place] the Clinical Laboratory Improvement Amendments (CLI A) as qualified to pe rform high complexity clinical labora tory testing. Lab Interpretation Normal (test code = 66758-3) [facility], [id number] 01:07:20 Test Item Value Reference Range Interpretation Comments COVID-19 (SARS-COV-2) Not Detected Not Detected INTERP RETATION: No (test code = 09671-2) detect able levels of SARS-CoV-2 Coronavirus (COVID-19) [...] SARS-CoV-2 mole cular diagnostic assa y utilizes Cane Piler Mediated Amplification ( TMA) technology to r apidly detect the SARS -CoV-2 (COVID-19) viru s from respiratory adriana ples. In accordance w ith the FDA's kamran nce document "Polic y for Diagnostic Test s for Coronavirus Disease-2018 du [facility] the Public [facility] Emergency", thi s test was developed, and its performance characteristics were verified by the [facility] molecular diagn ostics laboratory and is authorized for clinical diagno stic use. This labor atory is certified un [place] the Clinical Laboratory Improvement Amendments (CLI A) as qualified to pe rform high complexity clinical labora tory testing. Lab Interpretation Normal (test code = 81337-1) [facility], [id number] 01:07:20 Test Item Value Reference Range Interpretation Comments COVID-19 (SARS-COV-2) Not Detected Not Detected INTERP RETATION: No (test code = 38228-5) detect able levels of SARS-CoV-2 Coronavirus (COVID-19) [...] SARS-CoV-2 mole cular diagnostic assa y utilizes Cane Piler Mediated Amplification ( TMA) technology to r apidly detect the SARS -CoV-2 (COVID-19) viru s from respiratory adriana ples. In accordance w ith the FDA's kamran nce document "Polic y for Diagnostic Test s for Coronavirus Disease-2019 du ring the [facility]", thi s test was developed, and its performance characteristics were verified by the [facility] molecular diagn ostics laboratory and is authorized for clinical diagno stic use. This labor atory is certified un [place] the Clinical Laboratory Improvement Amendments (CLI A) as qualified to pe rform high complexity clinical labora tory testing. Lab Interpretation Normal (test code = 02783-6) [facility]avirus, CoVID-19, [id number] 01:07:20 Test Item Value Reference Range Interpretation Comments COVID-19 (SARS-COV-2) Not Detected Not Detected INTERP RETATION: No (test code = 70475-2) detect able levels of SARS-CoV-2 Coronavirus (COVID-19) [...] SARS-CoV-2 mole cular diagnostic assa y utilizes Cane Piler Mediated Amplification ( TMA) technology to r apidly detect the SARS -CoV-2 (COVID-19) viru s from respiratory adriana ples. In accordance w ith the FDA's kamran nce document "Polic y for Diagnostic Test s for Coronavirus Disease-2019 du [facility] the [facility]", thi s test was developed, and its performance characteristics were verified by the [facility] molecular diagn ostics laboratory and is authorized for clinical diagno stic use. This labor atory is certified un [place] the Clinical Laboratory Improvement Amendments (CLI A) as qualified to pe rform high complexity clinical labora tory testing. Lab Interpretation Normal (test code = 48644-3) [facility], [id number] 01:07:20 Test Item Value Reference Range Interpretation Comments COVID-19 (SARS-COV-2) Not Detected Not Detected INTERP RETATION: No (test code = 15765-3) detect able levels of SARS-CoV-2 Coronavirus (COVID-19) [...] SARS-CoV-2 mole cular diagnostic assa y utilizes Cane Piler Mediated Amplification ( TMA) technology to r apidly detect the SARS -CoV-2 (COVID-19) viru s from respiratory adriana ples. In accordance w ith the FDA's kamran nce document "Polic y for Diagnostic Test s for Coronavirus Disease-2019 [facility] the [facility]", thi s test was developed, and its performance characteristics were verified by the [facility] molecular diagn ostics laboratory and is authorized for clinical diagno stic use. This labor atory is certified un [place] the Clinical Laboratory Improvement Amendments (CLI A) as qualified to pe rform high complexity clinical labora tory testing. Lab Interpretation Normal (test code = 90422-7) [facility], [id number] 01:07:20 Test Item Value Reference Range Interpretation Comments COVID-19 (SARS-COV-2) Not Detected Not Detected INTERP RETATION: No (test code = 13981-5) detect able levels of SARS-CoV-2 Coronavirus (COVID-19) [...] SARS-CoV-2 mole cular diagnostic assa y utilizes Cane Piler Mediated Amplification ( TMA) technology to r apidly detect the SARS -CoV-2 (COVID-19) viru s from respiratory adriana ples. In accordance w ith the FDA's kamran nce document "Polic y for Diagnostic Test s for Coronavirus Disease-2019 [facility] the [facility]", thi s test was developed, and its performance characteristics were verified by the [facility] molecular diagn ostics laboratory and is authorized for clinical diagno stic use. This labor atory is certified un [place] the Clinical Laboratory Improvement Amendments (CLI A) as qualified to pe rform high complexity clinical labora tory testing. Lab Interpretation Normal (test code = 46369-1) [facility], [id number] 01:07:20 Test Item Value Reference Range Interpretation Comments COVID-19 (SARS-COV-2) Not Detected Not Detected INTERP RETATION: No (test code = 94692-1) detect able levels of SARS-CoV-2 Coronavirus (COVID-19) [...] SARS-CoV-2 mole cular diagnostic assa y utilizes Cane Piler Mediated Amplification ( TMA) technology to r apidly detect the SARS -CoV-2 (COVID-19) viru s from respiratory adriana ples. In accordance w ith the FDA's kamran nce document "Polic y for Diagnostic Test s for Coronavirus Disease-2019 [facility] the Public [facility] Emergency", thi s test was developed, and its performance characteristics were verified by the [facility] molecular diagn ostics laboratory and is authorized for clinical diagno stic use. This labor atory is certified un [place] the Clinical Laboratory Improvement Amendments (CLI A) as qualified to pe rform high complexity clinical labora tory testing. Lab Interpretation Normal (test code = 88527-0) [facility], [id number] 01:07:20 Test Item Value Reference Range Interpretation Comments COVID-19 (SARS-COV-2) Not Detected Not Detected INTERP RETATION: No (test code = 23422-1) detect able levels of SARS-CoV-2 Coronavirus (COVID-19) [...] SARS-CoV-2 mole cular diagnostic assa y utilizes Cane Piler Mediated Amplification ( TMA) technology to r apidly detect the SARS -CoV-2 (COVID-19) viru s from respiratory adriana ples. In accordance w ith the FDA's kamran nce document "Polic y for Diagnostic Test s for Coronavirus Disease-2019 [facility] the Public [facility] th Emergency", thi s test was developed, and its performance characteristics were verified by the [facility] molecular diagn ostics laboratory and is authorized for clinical diagno stic use. This labor atory is certified un [place] the Clinical Laboratory Improvement Amendments (CLI A) as qualified to pe rform high complexity clinical labora tory testing. Lab Interpretation Normal (test code = 24267-3) [facility] CoV[facility], [id number] 01:07:20 Test Item Value Reference Range Interpretation Comments COVID-19 (SARS-COV-2) Not Detected Not Detected INTERP RETATION: No (test code = 26128-1) detect able levels of SARS-CoV-2 Coronavirus (COVID-19) [...] SARS-CoV-2 mole cular diagnostic assa y utilizes Cane Piler Mediated Amplification ( TMA) technology to r apidly detect the SARS -CoV-2 (COVID-19) viru s from respiratory adriana ples. In accordance w ith the FDA's kamran nce document "Polic y for Diagnostic Test s for Coronavirus Disease-2019 [facility] the [facility]", thi s test was developed, and its performance characteristics were verified by the [facility] molecular diagn ostics laboratory and is authorized for clinical diagno stic use. This labor atory is certified un [place] the Clinical Laboratory Improvement Amendments (CLI A) as qualified to pe rform high complexity clinical labora tory testing. Lab Interpretation Normal (test code = 01560-0) [facility] Surajronavirus, CoVID-19, [id number] 01:07:20 Test Item Value Reference Range Interpretation Comments COVID-19 (SARS-COV-2) Not Detected Not Detected INTERP RETATION: No (test code = 46569-6) detect able levels of SARS-CoV-2 Coronavirus (COVID-19) [...] SARS-CoV-2 mole cular diagnostic assa y utilizes Cane Piler Mediated Amplification ( TMA) technology to r apidly detect the SARS -CoV-2 (COVID-19) viru s from respiratory adriana ples. In accordance w ith the FDA's kamran nce document "Polic y for Diagnostic Test s for Coronavirus Disease-2019 [facility] the [facility]", thi s test was developed, and its performance characteristics were verified by the [facility] molecular diagn ostics laboratory and is authorized for clinical diagno stic use. This labor atory is certified un est[place] the Clinical Laboratory Improvement Amendments (CLI A) as qualified to pe rform high complexity clinical labora tory testing. Lab Interpretation Normal (test code = 68078-8) [facility], [id number] 01:07:20 Test Item Value Reference Range Interpretation Comments COVID-19 (SARS-COV-2) Not Detected Not Detected INTERP RETATION: No (test code = 96885-1) detect able levels of SARS-CoV-2 Coronavirus (COVID-19) [...] SARS-CoV-2 mole cular diagnostic assa y utilizes Cane Piler Mediated Amplification ( TMA) technology to r apidly detect the SARS -CoV-2 (COVID-19) viru s from respiratory adriana ples. In accordance w ith the FDA's kamran nce document "Polic y for Diagnostic Test s for Coronavirus Disease-2019 [facility] the Public [facility] Emergency", thi s test was developed, and its performance characteristics were verified by the [facility] molecular diagn ostics laboratory and is authorized for clinical diagno stic use. This labor atory is certified un est[place] the Clinical Laboratory Improvement Amendments (CLI A) as qualified to pe rform high complexity clinical labora tory testing. Lab Interpretation Normal (test code = 98859-2) [facility], [id number] 01:07:20 Test Item Value Reference Range Interpretation Comments COVID-19 (SARS-COV-2) Not Detected Not Detected INTERP RETATION: No (test code = 63228-2) detect able levels of SARS-CoV-2 Coronavirus (COVID-19) [...] SARS-CoV-2 mole cular diagnostic assa y utilizes Cane Piler Mediated Amplification ( TMA) technology to r apidly detect the SARS -CoV-2 (COVID-19) viru s from respiratory adriana ples. In accordance w ith the FDA's kamran nce document "Polic y for Diagnostic Test s for Coronavirus Disease-2019 [facility] the Public [facility] Emergency", thi s test was developed, and its performance characteristics were verified by the [facility] molecular diagn ostics laboratory and is authorized for clinical diagno stic use. This labor atory is certified un [place] the Clinical Laboratory Improvement Amendments (CLI A) as qualified to pe rform high complexity clinical labora tory testing. Lab Interpretation Normal (test code = 09561-1) [facility] Co[facility], [id number] 01:07:20 Test Item Value Reference Range Interpretation Comments COVID-19 (SARS-COV-2) Not Detected Not Detected INTERP RETATION: No (test code = 52892-7) detect able levels of SARS-CoV-2 Coronavirus (COVID-19) [...] SARS-CoV-2 mole cular diagnostic assa y utilizes Cane Piler Mediated Amplification ( TMA) technology to r apidly detect the SARS -CoV-2 (COVID-19) viru s from respiratory adriana ples. In accordance w ith the FDA's kamran nce document "Polic y for Diagnostic Test s for Coronavirus Disease-2019 du [facility] the [facility]", thi s test was developed, and its performance characteristics were verified by the [facility] molecular diagn ostics laboratory and is authorized for clinical diagno stic use. This labor atory is certified un [place] the Clinical Laboratory Improvement Amendments (CLI A) as qualified to pe rform high complexity clinical labora tory testing. Lab Interpretation Normal (test code = 75096-6) [facility], CoV[facility]-19, [id number] 01:07:20 Test Item Value Reference Range Interpretation Comments COVID-19 (SARS-COV-2) Not Detected Not Detected INTERP RETATION: No (test code = 73518-8) detect able levels of SARS-CoV-2 Coronavirus (COVID-19) [...] SARS-CoV-2 mole cular diagnostic assa y utilizes Cane Piler Mediated Amplification ( TMA) technology to r apidly detect the SARS -CoV-2 (COVID-19) viru s from respiratory adriana ples. In accordance w ith the FDA's kamran nce document "Polic y for Diagnostic Test s for Coronavirus Disease-2019 du ring the Public [facility]", thi s test was developed, and its performance characteristics were verified by the [facility] molecular diagn ostics laboratory and is authorized for clinical diagno stic use. This labor atory is certified un est[place] the Clinical Laboratory Improvement Amendments (CLI A) as qualified to pe rform high complexity clinical labora tory testing. Lab Interpretation Normal (test code = 52437-9) [facility], [id number] 01:07:20 Test Item Value Reference Range Interpretation Comments COVID-19 (SARS-COV-2) Not Detected Not Detected INTERP RETATION: No (test code = 01133-6) detect able levels of SARS-CoV-2 Coronavirus (COVID-19) [...] SARS-CoV-2 mole cular diagnostic assa y utilizes Cane Piler Mediated Amplification ( TMA) technology to r apidly detect the SARS -CoV-2 (COVID-19) viru s from respiratory adriana ples. In accordance w ith the FDA's kamran nce document "Polic y for Diagnostic Test s for Coronavirus Disease-2019 du [facility] the [facility]", thi s test was developed, and its performance characteristics were verified by the [facility] molecular diagn ostics laboratory and is authorized for clinical diagno stic use. This labor atory is certified un est[place] the Clinical Laboratory Improvement Amendments (CLI A) as qualified to pe rform high complexity clinical labora tory testing. Lab Interpretation Normal (test code = 93446-8) [facility]hh[facility]zo[facility]TmG-0 ORF1ab Resp Ql [id number] 01:07:20 Test Item Value Reference Range Interpretation Comments Hospitalized? (test No code = 29239-1) ICU? (test code = No 09006-4) Symptomatic as No defined by CDC? (test code = 55364-5) Employed in No Healthcare? (test code = 20623-8) Resident in a No congregate care setting (including nursing homes, residential care for people with intellectual and developmental disabilities, psychiatric treatment facilities, group homes, board and care homes, homeless senior living, foster care or other): (test code = 41102-0) SARS-CoV-2 ORF1ab NOT DETECTED Not Detected INTERPRETA TION: No Resp Ql OLENA+probe detectable levels of (test code = SARS-CoV-2 25764-6) Coronavirus (COVID-19) were present in this patient's [...] SARS-CoV-2 mole cular diagnostic assa y utilizes Cane Piler Mediated Amplification ( TMA) technology to r apidly detect the SARS -CoV-2 (COVID-19) viru s from respiratory adriana ples. In accordance with\\XC2A0\\the FDA's guidance docume nt "Policy for Diagnostic Test s for Coronavirus Disease-2019 du [facility] the [facility]", ginger s test was developed, and its performance characteristics were verified by the [facility] molecular diagn ostics laboratory and is authorized for clinical diagno stic use. \\XC2A0\\Ginger s laboratory is certified under the Clinical Labora tory Improvement Amendments (CLI A) as qualified to pe rform high complexity clinical labora tory testing. [facility] docked [id number] 08:09:01 Test Item Value Reference Range Interpretation Comments Glucose POC (test code = 44193418) 85 mg/dL 74-106 Lab Interpretation (test code = Normal 13351-7) [facility] [id number] 08:09:01 Test Item Value Reference Range Interpretation Comments Glucose POC (test code = 92595094) 85 mg/dL 74-106 Lab Interpretation (test code = Normal 45176-4) [facility] [id number] 08:09:01 Test Item Value Reference Range Interpretation Comments Glucose POC (test code = 67624079) 85 mg/dL 74-106 Lab Interpretation (test code = Normal 20672-3) [facility] [id number] 08:09:01 Test Item Value Reference Range Interpretation Comments Glucose POC (test code = 72336465) 85 mg/dL 74-106 Lab Interpretation (test code = Normal 69389-2) [facility] [id number] 08:09:01 Test Item Value Reference Range Interpretation Comments Glucose POC (test code = 70059990) 85 mg/dL 74-106 Lab Interpretation (test code = Normal 72479-4) [facility] [id number] 08:09:01 Test Item Value Reference Range Interpretation Comments Glucose POC (test code = 57293346) 85 mg/dL 74-106 Lab Interpretation (test code = Normal 75112-4) [facility] [id number] 08:09:01 Test Item Value Reference Range Interpretation Comments Glucose POC (test code = 78160810) 85 mg/dL 74-106 Lab Interpretation (test code = Normal 44644-9) [facility] [id number] 08:09:01 Test Item Value Reference Range Interpretation Comments Glucose POC (test code = 28545150) 85 mg/dL 74-106 Lab Interpretation (test code = Normal 01472-9) [facility] [id number] 08:09:01 Test Item Value Reference Range Interpretation Comments Glucose POC (test code = 82221453) 85 mg/dL 74-106 Lab Interpretation (test code = Normal 59997-5) [facility] [id number] 08:09:01 Test Item Value Reference Range Interpretation Comments Glucose POC (test code = 62815007) 85 mg/dL 74-106 Lab Interpretation (test code = Normal 95807-2) [facility] [id number] 08:09:01 Test Item Value Reference Range Interpretation Comments Glucose POC (test code = 64753094) 85 mg/dL 74-106 Lab Interpretation (test code = Normal 26332-7) [facility] [id number] 08:09:01 Test Item Value Reference Range Interpretation Comments Glucose POC (test code = 58191322) 85 mg/dL 74-106 Lab Interpretation (test code = Normal 64119-5) [facility] [id number] 08:09:01 Test Item Value Reference Range Interpretation Comments Glucose POC (test code = 13114150) 85 mg/dL 74-106 Lab Interpretation (test code = Normal 65278-9) [facility] [id number] 08:09:01 Test Item Value Reference Range Interpretation Comments Glucose POC (test code = 24399607) 85 mg/dL 74-106 Lab Interpretation (test code = Normal 61747-2) [facility] [id number] 08:09:01 Test Item Value Reference Range Interpretation Comments Glucose POC (test code = 57544832) 85 mg/dL 74-106 Lab Interpretation (test code = Normal 92300-0) [facility] [id number] 08:09:01 Test Item Value Reference Range Interpretation Comments Glucose POC (test code = 56981737) 85 mg/dL 74-106 Lab Interpretation (test code = Normal 48218-7) [facility] [id number] 08:09:01 Test Item Value Reference Range Interpretation Comments Glucose POC (test code = 81316540) 85 mg/dL 74-106 Lab Interpretation (test code = Normal 61716-6) [facility] [id number] 08:09:01 Test Item Value Reference Range Interpretation Comments Glucose POC (test code = 20142349) 85 mg/dL 74-106 Lab Interpretation (test code = Normal 11828-3) [facility] [id number] 08:09:01 Test Item Value Reference Range Interpretation Comments Glucose POC (test code = 56010145) 85 mg/dL 74-106 Lab Interpretation (test code = Normal 65832-9) [facility] [id number] 08:09:01 Test Item Value Reference Range Interpretation Comments Glucose POC (test code = 85518759) 85 mg/dL 74-106 Lab Interpretation (test code = Normal 70947-3) [facility] [id number] 08:09:01 Test Item Value Reference Range Interpretation Comments Glucose POC (test code = 01152060) 85 mg/dL 74-106 Lab Interpretation (test code = Normal 55771-1) [facility] [id number] 08:09:01 Test Item Value Reference Range Interpretation Comments Glucose POC (test code = 28087183) 85 mg/dL 74-106 Lab Interpretation (test code = Normal 13289-4) [facility] docked xmwjbv8450-33-33 08:09:01 Test Item Value Reference Range Interpretation Comments Glucose POC (test code = 34852463) 85 mg/dL 74-106 Lab Interpretation (test code = Normal 45282-8) [facility] ORF1ab Resp Ql OLENA+nlxbg9043-93-25 23:25:40 Test Item Value Reference Range Interpretation Comments Hospitalized? (test No code = 25879-9) ICU? (test code = No 48775-3) Symptomatic as No defined by CDC? (test code = 01614-2) Employed in No Healthcare? (test code = 60613-2) Resident in a No congregate care setting (including nursing homes, residential care for people with intellectual and developmental disabilities, psychiatric treatment facilities, group homes, board and care homes, homeless senior living, foster care or other): (test code = 45270-8) SARS-CoV-2 ORF1ab NOT DETECTED Not Detected INTERPRETA TION: No Resp Ql OLENA+probe detectable levels of (test code = SARS-CoV-2 95473-2) Coronavirus (COVID-19) were present in this patient's [...] SARS-CoV-2 mole cular diagnostic assa y utilizes Cane Piler Mediated Amplification ( TMA) technology to r apidly detect the SARS -CoV-2 (COVID-19) viru s from respiratory adriana ples. In accordance with\\XC2A0\\the FDA's guidance docume nt "Policy for Diagnostic Test s for Coronavirus Disease-2019 du [facility] the Public [facility]", ginger s test was developed, and its performance characteristics were verified by the [facility] molecular diagn ostics laboratory and is authorized for clinical diagno stic use. \\XC2A0\\Thi s laboratory is certified under the Clinical Labora tory Improvement Amendments (CLI A) as qualified to pe rform high complexity clinical labora tory testing. HHS12 Lead [id number] 15:46:1012 LEAD EKG FOR [facility] Test Date: 4361-90-08Ksc Name: DORA JOSEPH Department: 5ECIPatient ID: [id number] Room: Gender: M Environmental Consultant: [id number]: 1970 Requested By: DARRION Cho Number: [id number] Reading MD: Rene Patterson MeasurementsIntervals [place] Rate: 61 P: 72PR: 152 QRS: 55QRSD: 106 T: 63QT: 398 QTc: 400 Interpretive StatementsSINUS RHYTHMPOSSIBLE RIGHT VENTRICULAR CONDUCTION DELAY [RSR (QR) IN V1/V2]Electronically Signed On 01-22-2022 8:30:45 CDT by Rene AvitiaBitSight TechnologiesCompaJimdo12 Lead [id number] 15:46:1012 LEAD EKG FOR [facility] Test Date: 7871-51-43Xad Name: DORA JOSEPH Department: 5ECIPatient ID: [id number] Room: Gender: M Environmental Consultant: [id number]: 1970 Requested By: DARRION Cho Number: [id number] Reading MD: Rene Patterson MeasurementsIntervals [place] Rate: 61 P: 72PR: 152 QRS: 55QRSD: 106 T: 63QT: 398 QTc: 400 Interpretive StatementsSINUS RHYTHMPOSSIBLE RIGHT VENTR ICULAR CONDUCTION DELAY [RSR (QR) IN V1/V2]Electronically Signed On 01-22-2022 8:30:45 CDT by Rene AvitiaBitSight TechnologiesCompaJimdo12 Lead [id number] 15:46:1012 LEAD EKG FOR [facility] Test Date: 1026-28-16Gtb Name: DORA JOSEPH Department: 5ECIPatient ID: [id number] Room: Gender: M Environmental Consultant: [id number]: 1970 Requested By: DARRION Cho Number: [id number] Reading MD: Rene Patterson MeasurementsIntervals [place] Rate: 61 P: 72PR: 152 QRS: 55QRSD: 106 T: 63QT: 398 QTc: 400 Interpretive StatementsSINUS RHYTHMPOSSIBLE RIGHT VENTRICULAR CONDUCTION DELAY [RSR (QR) IN V1/V2]Electronically Signed On 01-22-2022 8:30:45 CDT by Rene AvitiaBitSight TechnologiesCompaJimdo12 Lead [id number] 15:46:1012 LEAD EKG FOR [facility] Test Date: 2826-97-15Yxf Name: DORA JOSEPH Department: 5EPatient ID: [id number] Room: Gender: M Environmental Consultant: [id number]: 1970 Requested By: DARRION Cho Number: [id number] Reading MD: Rene Patterson MeasurementsIntervals [place] Rate: 61 P: 72PR : 152 QRS: 55QRSD: 106 T: 63QT: 398 QTc: 400 Interpretive StatementsSINUS RHYTHMPOSSIBLE RIGHT VENTRICULAR CONDUCTION DELAY [RSR (QR) IN V1/V2]Electronically Signed On 01-22-2022 8:30:45 CDT by [facility]ene [facility] Lead [id number] 15:46:1012 LEAD EKG FOR [facility] Test Date: 8765-67-09Uql Name: DORA JOSEPH Department: 5EPatient ID: [id number] Room: Gender: M Environmental Consultant: [id number]: 1970 Requested By: DARRION Cho Number: [id number] Reading MD: Rene Patterson MeasurementsIntervals [place] Rate: 61 P: 72PR: 152 QRS: 55QRSD: 106 T: 63QT: 398 QTc: 400 Interpretive StatementsSINUS RHYTHMPOSSIBLE RIGHT VENTRICULAR CONDUCTION DELAY [RSR (QR) IN V1/V2]Electronically Signed On 01-22-2022 8:30:45 CDT by Rene Valle Dsbtsu56 Lead [id number] 15:46:1012 LEAD EKG FOR [facility] Test Date: 3835-73-02Tue Name: DORA JOSEPH Department: 5ECIPatient ID: [id number] Room: Gender: M Environmental Consultant: [id number]: 1970 Requested By: DARRION Cho Number: [id number] Reading MD: Rene Patterson MeasurementsIntervals [place] Rate: 61 P: 72PR: 152 QRS: 55QRSD: 106 T: 63QT: 398 QTc: 400 Interpretive StatementsSINUS RHYTHMPOSSIBLE RIGHT VENTR ICULAR CONDUCTION DELAY [RSR (QR) IN V1/V2]Electronically Signed On 01-22-2022 8:30:45 CDT by Rene RahmanSMSHarris Welvgt70 Lead [id number] 15:46:1012 LEAD EKG FOR [facility] Test Date: 7704-08-46Irj Name: DORA JOSEPH Department: 5ECIPatient ID: [id number] Room: Gender: M Environmental Consultant: [id number]: 1970 Requested By: DARRION Cho Number: [id number] Reading MD: Rene Patterson MeasurementsIntervals [place] Rate: 61 P: 72PR:152 QRS: 55QRSD: 106 T: 63QT: 398 QTc: 400 Interpretive StatementsSINUS RHYTHMPOSSIBLE RIGHT VENTRICULAR CONDUCTION DELAY [RSR (QR) IN V1/V2]Electronically Signed On 01-22-2022 8:30:45 CDT by Rene RaanSDCHarlovelace women's hospital Lflpsh19 Lead [id number] 15:46:1012 LEAD EKG FOR [facility] Test Date: 1914-12-14Eqy Name: DORA JOSEPH Department: 5ECIPatient ID: [id number] Room: Gender: M Environmental Consultant: [id number]: 1970 Requested By: DARRION Cho Number: [id number] Reading MD: Rene Patterson MeasurementsIntervals [place] Rate: 61 P: 72PR: 152 QRS: 55QRSD: 106 T: 63QT: 398 QTc: 400 Interpretive StatementsSINUS RHYTHMPOSSIBLE RIGHT VENTRICULAR CONDUCTION DELAY [RSR (QR) IN V1/V2]Electronically Signed On 01-22-2022 8:30:45 CDT by Rene DebbyDCHarris Cdkntd93 Lead [id number] 15:46:1012 LEAD EKG FOR [facility] Test Date: 9283-24-47Vrk Name: DORA JOSEPH Department: 5ECIPatient ID: [id number] Room: Gender: M Environmental Consultant: [id number]: 1970 Requested By: DARRION Cho Number: [id number] Reading MD: Rene Patterson MeasurementsIntervals [place] Rate: 61 P: 72PR: 152 QRS: 55QRSD: 106 T: 63QT: 398 QTc: 400 Interpretive StatementsSINUS RHYTHMPOSSIBLE RIGHT VENTRICULAR CONDUCTION DELAY [RSR (QR) IN V1/V2]Electronically Signed On 01-22-2022 8:30:45 CDT by Rene AvitiaBitSight TechnologiesCompaJimdo12 Lead [id number] 15:46:1012 LEAD EKG FOR [facility] Test Date: 0875-61-57Gkk Name: DORA JOSEPH Department: 5ECIPatient ID: [id number] Room: Gender: M Environmental Consultant: [id number]: 1970 Requested By: DARRION Cho Number: [id number] Reading MD: Rene Patterson MeasurementsIntervals [place] Rate: 61 P: 72PR: 152 QRS: 55QRSD: 106 T: 63QT: 398 QTc: 400 Interpretive StatementsSINUS RHYTHMPOSSIBLE RIGHT VENTR ICULAR CONDUCTION DELAY [RSR (QR) IN V1/V2]Electronically Signed On 01-22-2022 8:30:45 CDT by Rene ProUroCare MedicalDebbyBitSight TechnologiesCompaJimdo12 Lead [id number] 15:46:1012 LEAD EKG FOR [facility] Test Date: 0511-36-97Nyn Name: DORA JOSEPH Department: 5ECIPatient ID: [id number] Room: Gender: M Environmental Consultant: [id number]: 1970 Requested By: DARRION Cho Number: [id number] Reading MD: Rene Patterson MeasurementsIntervals [place] Rate: 61 P: 72PR: 152 QRS: 55QRSD: 106 T: 63QT: 398 QTc: 400 Interpretive StatementsSINUS RHYTHMPOSSIBLE RIGHT VENTRICULAR CONDUCTION DELAY [RSR (QR) IN V1/V2]Electronically Signed On 01-22-2022 8:30:45 CDT by Rene DebbyBitSight TechnologiesCompalovelace women's hospital Owzccx76 Lead [id number] 15:46:1012 LEAD EKG FOR [facility] Test Date: 0670-08-20Snz Name: DORA JOSEPH Department: 5ECIPatient ID: [id number] Room: Gender: M Environmental Consultant: [id number]: 1970 Requested By: DARRION Cho Number: [id number] Reading MD: Rene Patterson MeasurementsIntervals [place] Rate: 61 P: 72PR: 152 QRS: 55QRSD: 106 T: 63QT: 398 QTc: 400 Interpretive StatementsSINUS RHYTHMPOSSIBLE RIGHT VENTRICULAR CONDUCTION DELAY [RSR (QR) IN V1/V2]Electronically Signed On 01-22-2022 8:30:45 CDT by Renerick AvitiaBitSight TechnologiesComparis Rrzldv89 Lead [id number] 15:46:1012 LEAD EKG FOR [facility] Test Date: 6925-23-95Bbb Name: DORA PAEZRY Department: 5ECIPatient ID: [id number] Room: Gender: M Environmental Consultant: [id number]: 1970 Requested By: DARRION Cho Number: [id number] Reading MD: Rene Patterson MeasurementsIntervals [place] Rate: 61 P: 72PR: 152 QRS: 55QRSD: 106 T: 63QT: 398 QTc: 400 Interpretive StatementsSINUS RHYTHMPOSSIBLE RIGHT VENTRICULAR CONDUCTION DELAY [RSR (QR) IN V1/V2]Electronically Signed On 01-22-2022 8:30:45 CDT by Renerick AvitiaBitSight TechnologiesCompaJimdo12 Lead [id number] 15:46:1012 LEAD EKG FOR [facility] Test Date: 0166-64-45Ruj Name: DORA JOSEPH Department: 5ECIPatient ID: [id number] Room: Gender: M Environmental Consultant: [id number]: 1970 Requested By: DARRION Cho Number: [id number] Reading MD: Rene Patterson MeasurementsIntervals [place] Rate: 61 P: 72PR: 152 QRS: 55QRSD: 106 T: 63QT: 398 QTc: 400 Interpretive StatementsSINUS RHYTHMPOSSIBLE RIGHT VENTRICULAR CONDUCTION DELAY [RSR (QR) IN V1/V2]Electronically Signed On 01-22-2022 8:30:45 CDT by Rene DebbyBitSight TechnologiesCompaJimdo12 Lead [id number] 15:46:1012 LEAD EKG FOR [facility] Test Date: 6309-34-90Qhz Name: DORA JOSEPH Department: 5ECIPatient ID: [id number] Room: Gender: M Environmental Consultant: [id number]: 1970 Requested By: DARRION Cho Number: [id number] Reading MD: Rene Patterson MeasurementsIntervals [place] Rate: 61 P: 72PR : 152 QRS: 55QRSD: 106 T: 63QT: 398 QTc: 400 Interpretive StatementsSINUS RHYTHMPOSSIBLE RIGHT VENTRICULAR CONDUCTION DELAY [RSR (QR) IN V1/V2]Electronically Signed On 01-22-2022 8:30:45 CDT by Renerick AvitiaBitSight TechnologiesCompalovelace women's hospital Fkhhzn98 Lead [id number] 15:46:1012 LEAD EKG FOR [facility] Test Date: 7821-25-00Nff Name: DORA JOSEPH Department: 5EPatient ID: [id number] Room: Gender: M Environmental Consultant: [id number]: 1970 Requested By: DARRION Cho Number: [id number] Reading MD: Rene Patterson MeasurementsIntervals [place] Rate: 61 P: 72PR: 152 QRS: 55QRSD: 106 T: 63QT: 398 QTc: 400 Interpretive StatementsSINUS RHYTHMPOSSIBLE RIGHT VENTRICULAR CONDUCTION DELAY [RSR (QR) IN V1/V2]Electronically Signed On 01-22-2022 8:30:45 CDT by Rene SadiBitSight TechnologiesCompaDoctors Hospital12 Lead [id number] 15:46:1012 LEAD EKG FOR [facility] Test Date: 9724-00-77Ygl Name: DORA JOSEPH Department: 5ECIPatient ID: [id number] Room: Gender: M Environmental Consultant: [id number]: 1970 Requested By: DARRION Cho Number: [id number] Reading MD: Rene Patterson MeasurementsIntervals [place] Rate: 61 P: 72PR: 152 QRS: 55QRSD: 106 T: 63QT: 398 QTc: 400 Interpretive StatementsSINUS RHYTHMPOSSIBLE RIGHT VENTR ICULAR CONDUCTION DELAY [RSR (QR) IN V1/V2]Electronically Signed On 01-22-2022 8:30:45 CDT by Rene [facility]12 Lead [id number] 15:46:1012 LEAD EKG FOR [facility] Test Date: 9596-83-94Bce Name: DORA JOSEPH Department: 5ECIPatient ID: [id number] Room: Gender: M Environmental Consultant: [id number]: 1970 Requested By: DARRION Cho Number: [id number] Reading MD: Rene Patterson MeasurementsIntervals [place] Rate: 61 P: 72PR: 152 QRS: 55QRSD: 106 T: 63QT: 398 QTc: 400 Interpretive StatementsSINUS RHYTHMPOSSIBLE RIGHT VENTRICULAR CONDUCTION DELAY [RSR (QR) IN V1/V2]Electronically Signed On 01-22-2022 8:30:45 CDT by [facility]12 Lead [id number] 15:46:1012 LEAD EKG FOR [facility] Test Date: 0075-52-62Hmu Name: DORA JOSEPH Department: 5ECIPatient ID: [id number] Room: Gender: M Environmental Consultant: [id number]: 1970 Requested By: DARRION Cho Number: [id number] Reading MD: Rene Patterson MeasurementsIntervals [place] Rate: 61 P: 72PR : 152 QRS: 55QRSD: 106 T: 63QT: 398 QTc: 400 Interpretive StatementsSINUS RHYTHMPOSSIBLE RIGHT VENTRICULAR CONDUCTION DELAY [RSR (QR) IN V1/V2]Electronically Signed On 01-22-2022 8:30:45 CDT by [facility]12 Lead [id number] 15:46:1012 LEAD EKG FOR [facility] Test Date: 8398-79-76Sar Name: DORA JOSEPH Department: 5ECIPatient ID: [id number] Room: Gender: M Environmental Consultant: [id number]: 1970 Requested By: DARRION Cho Number: [id number] Reading MD: Rene Patterson MeasurementsIntervals [place] Rate: 61 P: 72PR: 152 QRS: 55QRSD: 106 T: 63QT: 398 QTc: 400 Interpretive StatementsSINUS RHYTHMPOSSIBLE RIGHT VENTRICULAR CONDUCTION DELAY [RSR (QR) IN V1/V2]Electronically Signed On 01-22-2022 8:30:45 CDT by [facility]12 Lead [id number] 15:46:1012 LEAD EKG FOR [facility] Test Date: 5357-63-76Ruh Name: DORA JOSEPH Department: 5ECIPatient ID: [id number] Room: Gender: M Environmental Consultant: [id number]: 1970 Requested By: DARRION Cho Number: [id number] Reading MD: Rene Patterson MeasurementsIntervals [place] Rate: 61 P: 72PR: 152 QRS: 55QRSD: 106 T: 63QT: 398 QTc: 400 Interpretive StatementsSINUS RHYTHMPOSSIBLE RIGHT VENTR ICULAR CONDUCTION DELAY [RSR (QR) IN V1/V2]Electronically Signed On 01-22-2022 8:30:45 CDT by [facility]12 Lead [id number] 15:46:1012 LEAD EKG FOR [facility] Test Date: 6346-97-97Yfb Name: DORA JOSEPH Department: 5ECIPatient ID: [id number] Room: Gender: M Environmental Consultant: [id number]: 1970 Requested By: DARRION Cho Number: [id number] Reading MD: Rene Patterson MeasurementsIntervals [place] Rate: 61 P: 72PR: 152 QRS: 55QRSD: 106 T: 63QT: 398 QTc: 400 Interpretive StatementsSINUS RHYTHMPOSSIBLE RIGHT VENTRICULAR CONDUCTION DELAY [RSR (QR) IN V1/V2]Electronically Signed On 01-22-2022 8:30:45 CDT by [facility]12 Lead [id number] 15:46:1012 LEAD EKG FOR [facility] Test Date: 5993-78-72Wzn Name: DORA JOSEPH Department: 5ECIPatient ID: [id number] Room: Gender: M Environmental Consultant: [id number]: 1970 Requested By: DARRION Fontanezer Number: [id number] Reading MD: Rene Patterson MeasurementsIntervals [place] Rate: 61 P: 72PR : 152 QRS: 55QRSD: 106 T: 63QT: 398 QTc: 400 Interpretive StatementsSINUS RHYTHMPOSSIBLE RIGHT VENTRICULAR CONDUCTION DELAY [RSR (QR) IN V1/V2]Electronically Signed On 01-22-2022 8:30:45 CDT by Rene Valle [facility] 1+2 Ab+HIV1 p24 Ag SerPl Ql [id number] 07:02:58 Test Item Value Reference Range Interpretation Comments HIV 1+2 Ab+HIV1 p24 Ag SerPl Ql IA NEGATIVE Negative (test code = 60358-8) [id number] 21:23:2512 LEAD EKG FOR [facility] Test Date: 5050-56-23Mkb Name: DORA JOSEPH Department: 5520Patient ID: [id number] Room: 4G96Aednok: Environmental Consultant: : 1970 Requested By: AKRIN BASSETT AOrestevan Number: [id number] Reading MD: Chiara Calles MeasurementsIntervals [place] Rate: 72 P: 90PR: 157 QRS: 87QRSD: 105 T: 90QT: 360 QTc: 384 Interpretive StatementsSINUS RHYTHMPOSSIBLE RIGHT VENTRICULAR CONDUCTION DELAY [RSR (QR) IN V1/V2]EARLY REPOLARIZATION [ST ELEVATION WITH NORMALLY INFLECTED T- WAVE]Electronically Signed On 01-17-2022 13:02:30 CDT by Chiara DavisDerek Ville 37760022-05-26 21:23:2512 LEAD EKG FOR [facility] Test Date: 7967-83-29Iul Name: DORA JOSEPH Department: 5520Patient ID: [id number] Room: 0J91Glkckz: M Environmental Consultant: : 1970 Requested By: KARIN BASSETT AOrder Number: [id number] Reading MD: Chiara Calles MeasurementsIntervals [place] Rate: 72 P: 90PR: 157 QRS: 87QRSD: 105 T: 90QT: 360 QTc: 384 Interpretive StatementsSINUS RHYTHMPOSSIBLE RIGHT VENTRICULAR CONDUCTION DELAY [RSR (QR) IN V1/V2]EARLY REPOLARIZATION [ST ELEVATION WITH NORMALLY INFLECTED T-W AVE]Electronically Signed On 01-17-2022 13:02:30 CDT by Chiara NetEase.comEKG2022-05-26 21:23:2512 LEAD EKG FOR [facility] Test Date: 2633-98-17Vdo Name: DORA JOSEPH Department: 5520Patient ID: [id number] Room: 7V33Khchha: M Environmental Consultant: : 1970 Requested By: JESSICA AOrder Number: [id number] Reading MD: Chiara Calles MeasurementsIntervals [place] Rate: 72 P: 90PR:157 QRS: 87QRSD: 105 T: 90QT: 360 QTc: 384 Interpretive StatementsSINUS RHYTHMPOSSIBLE RIGHT VENTRICULAR CONDUCTION DELAY [RSR (QR) IN V1/V2]EARLY REPOLARIZATION [ST ELEVATION WITH NORMALLY INFLECTED T- WAVE]Electronically Signed On 01-17-2022 13:02:30 CDT by Chiara DailyBurnbakariInnoPadMercy Emergency DepartmentJimdoKvfvvlODV0007-10-11 21:23:2512 LEAD EKG FOR [facility] Test Date: 3520-37-83Nmz Name: DORA JOSEPH Department: 5520Patient ID: [id number] Room: 2V94Curayf: M Environmental Consultant: : 1970 Requested By: KARNI BASSETT AOrder Number: [id number] Reading MD: Chiara Calles MeasurementsIntervals [place] Rate: 72 P: 90PR: 157 QRS: 87QRSD: 105 T: 90QT: 360 QTc: 384 Interpretive StatementsSINUS RHYTHMPOSSIBLE RIGHT VENTRICULAR CONDUCTION DELAY [RSR (QR) IN V1/V2]EARLY REPOLARIZATION [ST ELEVATION WITH NORMALLY INFLECTED T-W AVE]Electronically Signed On 01-17-2022 13:02:30 CDT by Chiara sharing.itMercy Emergency DepartmentISpottedYou.com VwvdfhMJN0687-95-87 21:23:2512 LEAD EKG FOR [facility] Test Date: 7461-39-19Jtf Name: DORA JOSEPH Department: 5520Patient ID: [id number] Room: 0V48Gbfwtw: M Environmental Consultant: : 1970 Requested By: KARIN BASSETT AOrder Number: [id number] Reading MD: Chiara Calles MeasurementsIntervals [place] Rate: 72 P: 90PR: 157 QRS: 87QRSD: 105 T: 90QT: 360 QTc: 384 Interpretive StatementsSINUS RHYTHMPOSSIBLE RIGHT VENTRICULAR CONDUCTION DELAY [RSR (QR) IN V1/V2]EARLY REPOLARIZATION [ST ELEVATION WITH NORMALLY INFLECTED T- WAVE]Electronically Signed On 01-17-2022 13:02:30 CDT by [facility] Medical CenterCasual StepsAlisha Ville [address]VniybiEZB5188-33-60 21:23:2512 LEAD EKG FOR [facility] Test Date: 7007-58-38Bmb Name: DORA JOSEPH Department: 5520Patient ID: [id number] Room: 9N89Aamdzr: M Environmental Consultant: : 1970 Requested By: KARIN BASSETT AOrder Number: [id number] Reading MD: Chiara Calles MeasurementsIntervals [place] Rate: 72 P: 90PR:157 QRS: 87QRSD: 105 T: 90QT: 360 QTc: 384 Interpretive StatementsSINUS RHYTHMPOSSIBLE RIGHT VENTRICULAR CONDUCTION DELAY [RSR (QR) IN V1/V2]EARLY REPOLARIZATION [ST ELEVATION WITH NORMALLY INFLECTED T- WAVE]Electronically Signed On 01-17-2022 13:02:30 CDT by YieldBuildMercy Emergency DepartmentJimdoFvkymeMTQ8133-66-81 21:23:2512 LEAD EKG FOR [facility] Test Date: 3488-59-80Tye Name: DORA LULING Department: 5520Patient ID: [id number] Room: 1J10Uehcft: M Environmental Consultant: : 1970 Requested By: KARIN BASSETT AOrder Number: [id number] Reading MD: Chiara Calles MeasurementsIntervals [place] Rate: 72 P: 90PR:157 QRS: 87QRSD: 105 T: 90QT: 360 QTc: 384 Interpretive StatementsSINUS RHYTHMPOSSIBLE RIGHT VENTRICULAR CONDUCTION DELAY [RSR (QR) IN V1/V2]EARLY REPOLARIZATION [ST ELEVATION WITH NORMALLY INFLECTED T- WAVE]Electronically Signed On 01-17-2022 13:02:30 CDT by [place] 57192022-05-26 21:23:2512 LEAD EKG FOR [facility] Test Date: 7152-01-24Dbo Name: DORA JOSEPH Department: 5520Patient ID: [id number] Room: 5D19Watocy: M Environmental Consultant: : 1970 Requested By: KARIN BASSETT AOrder Number: [id number] Reading MD: Chiara Calles MeasurementsIntervals [place] Rate: 72 P: 90PR:157 QRS: 87QRSD: 105 T: 90QT: 360 QTc: 384 Interpretive StatementsSINUS RHYTHMPOSSIBLE RIGHT VENTRICULAR CONDUCTION DELAY [RSR (QR) IN V1/V2]EARLY REPOLARIZATION [ST ELEVATION WITH NORMALLY INFLECTED T- WAVE]Electronically Signed On 01-17-2022 13:02:30 CDT by [facility] Of StokesInnoPadAlisha [place]ille [address]IzpwlaUUT9000-63-77 21:23:2512 LEAD EKG FOR [facility] Test Date: 4066-01-50Huk Name: DORA JOSEPH Department: 5520Patient ID: [id number] Room: 5U91Jwpath: M Environmental Consultant: : 1970 Requested By: JESSICA AOrder Number: [id number] Reading MD: Chiara Calles MeasurementsIntervals [place] Rate: 72 P: 90PR: 157 QRS: 87QRSD: 105 T: 90QT: 360 QTc: 384 Interpretive StatementsSINUS RHYTHMPOSSIBLE RIGHT VENTRICULAR CONDUCTION DELAY [RSR (QR) IN V1/V2]EARLY REPOLARIZATION [ST ELEVATION WITH NORMALLY INFLECTEDT- WAVE]Electronically Signed On 01-17-2022 13:02:30 CDT by [place] 57192022-05-26 21:23:2512 LEAD EKG FOR [facility] Test Date: 1724-26-90Dhv Name: DORA JOSEPH Department: 5520Patient ID: [id number] Room: 2O32Czewkg: M Environmental Consultant: : 1970 Requested By: KARIN BASSETT AOrder Number: [id number] Reading MD: Chiara Calles MeasurementsIntervals [place] Rate: 72 P: 90PR:157 QRS: 87QRSD: 105 T: 90QT: 360 QTc: 384 Interpretive StatementsSINUS RHYTHMPOSSIBLE RIGHT VENTRICULAR CONDUCTION DELAY [RSR (QR) IN V1/V2]EARLY REPOLARIZATION [ST ELEVATION WITH NORMALLY INFLECTED T- WAVE]Electronically Signed On 01-17-2022 13:02:30 CDT by [facility] sharing.itAlisha [place] [address]GqqkwoAFX6628-43-79 21:23:2512 LEAD EKG FOR [facility] Test Date: 7574-23-20Uon Name: DORA PAEZRY Department: 5520Patient ID: [id number] Room: 5U34Sthdkr: M Environmental Consultant: : 1970 Requested By: KARIN BASSETT AOrder Number: [id number] Reading MD: Chiara Calles MeasurementsIntervals [place] Rate: 72 P: 90PR: 157 QRS: 87QRSD: 105 T: 90QT: 360 QTc: 384 Interpretive StatementsSINUS RHYTHMPOSSIBLE RIGHT VENTRICULAR CONDUCTION DELAY [RSR (QR) IN V1/V2]EARLY REPOLARIZATION [ST ELEVATION WITH NORMALLY INFLECTED T- WAVE]Electronically Signed On 01-17-2022 13:02:30 CDT by [facility] sharing.itAlisha [place] [address]PohrtgRHR6182-90-08 21:23:2512 LEAD EKG FOR [facility] Test Date: 6668-42-34Feu Name: DORA JOSEPH Department: 5520Patient ID: [id number] Room: 2Q74Zldcgt: M Environmental Consultant: : 1970 Requested By: KARIN BASSETT AOrder Number: [id number] Reading MD: Chiara Calles MeasurementsIntervals [place] Rate: 72 P: 90PR: 157 QRS: 87QRSD: 105 T: 90QT: 360 QTc: 384 Interpretive StatementsSINUS RHYTHMPOSSIBLE RIGHT VENTRICULAR CONDUCTION DELAY [RSR (QR) IN V1/V2]EARLY REPOLARIZATION [ST ELEVATION WITH NORMALLY INFLECTED T- WAVE]Electronically Signed On 01-17-2022 13:02:30 CDT by [facility] Admedo LtdDerek Ville 37760022-05-26 21:23:2512 LEAD EKG FOR [facility] Test Date: 7395-76-35Vjh Name: DORA PAEZRY Department: 5520Patient ID: [id number] Room: 4B65Nzxgdb: M Environmental Consultant: : 1970 Requested By: KARIN BASSETT AOrder Number: [id number] Reading MD: Chiara Calles MeasurementsIntervals [place] Rate: 72 P: 90PR:157 QRS: 87QRSD: 105 T: 90QT: 360 QTc: 384 Interpretive StatementsSINUS RHYTHMPOSSIBLE RIGHT VENTRICULAR CONDUCTION DELAY [RSR (QR) IN V1/V2]EARLY REPOLARIZATION [ST ELEVATION WITH NORMALLY INFLECTED T- WAVE]Electronically Signed On 01-17-2022 13:02:30 CDT by RayspanEKG2022-05-26 21:23:2512 LEAD EKG FOR [facility] Test Date: 0905-84-29Zdk Name: DORA JOSEPH Department: 5520Patient ID: [id number] Room: 0Q64Plczeq: M Environmental Consultant: : 1970 Requested By: JESSICA AOrder Number: [id number] Reading MD: Chiara Calles MeasurementsIntervals [place] Rate: 72 P: 90PR:157 QRS: 87QRSD: 105 T: 90QT: 360 QTc: 384 Interpretive StatementsSINUS RHYTHMPOSSIBLE RIGHT VENTRICULAR CONDUCTION DELAY [RSR (QR) IN V1/V2]EARLY REPOLARIZATION [ST ELEVATION WITH NORMALLY INFLECTED T- WAVE]Electronically Signed On 01-17-2022 13:02:30 CDT by [facility] [id number] 21:23:2512 LEAD EKG FOR [facility] Test Date: 0865-00-89Ivm Name: DORA JOSEPH Department: 5520Patient ID: [id number] Room: 2H08Wlfesf: M Environmental Consultant: : 1970 Requested By: KARIN BASSETT AOrder Number: [id number] Reading MD: Chiara Calles MeasurementsIntervals [place] Rate: 72 P: 90PR:157 QRS: 87QRSD: 105 T: 90QT: 360 QTc: 384 Interpretive StatementsSINUS RHYTHMPOSSIBLE RIGHT VENTRICULAR CONDUCTION DELAY [RSR (QR) IN V1/V2]EARLY REPOLARIZATION [ST ELEVATION WITH NORMALLY INFLECTED T- WAVE]Electronically Signed On 01-17-2022 13:02:30 CDT by [place] [id number] 21:23:2512 LEAD EKG FOR [facility] Test Date: 6094-82-12Trm Name: DORA JOSEPH Department: 5520Patient ID: [id number] Room: 7Y97Tojgay: M Environmental Consultant: : 1970 Requested By: KARIN BASSETT AOrder Number: [id number] Reading MD: Chiara Calles MeasurementsIntervals [place] Rate: 72 P: 90PR: 157 QRS: 87QRSD: 105 T: 90QT: 360 QTc: 384 Interpretive StatementsSINUS RHYTHMPOSSIBLE RIGHT VENTRICULAR CONDUCTION DELAY [RSR (QR) IN V1/V2]EARLY REPOLARIZATION [ST ELEVATION WITH NORMALLY INFLECTED T-WA VE]Electronically Signed On 01-17-2022 13:02:30 CDT by [place] [id number] 21:23:2512 LEAD EKG FOR [facility] Test Date: 8460-11-19Elg Name: DORA JOSEPH Department: 5520Patient ID: [id number] Room: 3P63Psccgl: M Environmental Consultant: : 1970 Requested By: KARIN BASSETT AOrder Number: [id number] Reading MD: Chiara Calles MeasurementsIntervals [place] Rate: 72 P: 90PR:157 QRS: 87QRSD: 105 T: 90QT: 360 QTc: 384 Interpretive StatementsSINUS RHYTHMPOSSIBLE RIGHT VENTRICULAR CONDUCTION DELAY [RSR (QR) IN V1/V2]EARLY REPOLARIZATION [ST ELEVATION WITH NORMALLY INFLECTED T- WAVE]Electronically Signed On 01-17-2022 13:02:30 CDT by [place] [id number] 21:23:2512 LEAD EKG FOR [facility] Test Date: 9924-88-76Itc Name: DORA JOSEPH Department: 5520Patient ID: [id number] Room: 7T74Dmmbxp: M Environmental Consultant: : 1970 Requested By: KARIN BASSETT AOrder Number: [id number] Reading MD: Chiara Calles MeasurementsIntervals [place] Rate: 72 P: 90PR: 157 QRS: 87QRSD: 105 T: 90QT: 360 QTc: 384 Interpretive StatementsSINUS RHYTHMPOSSIBLE RIGHT VENTRICULAR CONDUCTION DELAY [RSR (QR) IN V1/V2]EARLY REPOLARIZATION [ST ELEVATION WITH NORMALLY INFLECTED T-W AVE]Electronically Signed On 01-17-2022 13:02:30 CDT by Chiara sharing.[employer] BqzjpbTHT9338-23-26 21:23:2512 LEAD EKG FOR [facility] Test Date: 2924-20-88Nto Name: DORA LULING Department: 5520Patient ID: [id number] Room: 9Z48Ewndre: M Environmental Consultant: : 1970 Requested By: KARIN BASSETT AOrder Number: [id number] Reading MD: Chiara Calles MeasurementsIntervals [place] Rate: 72 P: 90PR:157 QRS: 87QRSD: 105 T: 90QT: 360 QTc: 384 Interpretive StatementsSINUS RHYTHMPOSSIBLE RIGHT VENTRICULAR CONDUCTION DELAY [RSR (QR) IN V1/V2]EARLY REPOLARIZATION [ST ELEVATION WITH NORMALLY INFLECTED T- WAVE]Electronically Signed On 01-17-2022 13:02:30 CDT by Chiara sharing[employer] [id number] 21:23:2512 LEAD EKG FOR [facility] Test Date: 2654-91-72Mds Name: DORA LULING Department: 5520Patient ID: [id number] Room: 3X53Yfgmot: M Environmental Consultant: : 1970 Requested By: KARIN BASSETT AOrder Number: [id number] Reading MD: Chiara Calles MeasurementsIntervals [place] Rate: 72 P: 90PR: 157 QRS: 87QRSD: 105 T: 90QT: 360 QTc: 384 Interpretive StatementsSINUS RHYTHMPOSSIBLE RIGHT VENTRICULAR CONDUCTION DELAY [RSR (QR) IN V1/V2]EARLY REPOLARIZATION [ST ELEVATION WITH NORMALLY INFLECTED T- WAVE]Electronically Signed On 01-17-2022 13:02:30 CDT by [facility] sharing.itMer[facility] Emergency DepartmentHandUp [id number] 21:23:2512 LEAD EKG FOR [facility] Test Date: 0557-96-11Let Name: DORA PAEZRY Department: 5520Patient ID: [id number] Room: 4E37Ydqkef: M Environmental Consultant: : 1970 Requested By: KARIN BASSETT AOrder Number: [id number] Reading MD: Chiara Calles MeasurementsIntervals [place] Rate: 72 P: 90PR: 157 QRS: 87QRSD: 105 T: 90QT: 360 QTc: 384 Interpretive StatementsSINUS RHYTHMPOSSIBLE RIGHT VENTRICULAR CONDUCTION DELAY [RSR (QR) IN V1/V2]EARLY REPOLARIZATION [ST ELEVATION WITH NORMALLY INFLECTED T-W AVE]Electronically Signed On 01-17-2022 13:02:30 CDT by [facility] StepsCombs [id number] 21:23:2512 LEAD EKG FOR [facility] Test Date: 0931-67-30Lvs Name: DORA PAEZRY Department: 5520Patient ID: [id number] Room: 3B57Mqpxvc: M Environmental Consultant: : 1970 Requested By: JESSICA AOrder Number: [id number] Reading MD: Chiara Calles MeasurementsIntervals [place] Rate: 72 P: 90PR:157 QRS: 87QRSD: 105 T: 90QT: 360 QTc: 384 Interpretive StatementsSINUS RHYTHMPOSSIBLE RIGHT VENTRICULAR CONDUCTION DELAY [RSR (QR) IN V1/V2]EARLY REPOLARIZATION [ST ELEVATION WITH NORMALLY INFLECTED T- WAVE]Electronically Signed On 01-17-2022 13:02:30 CDT by [facility] Center[facility] StepsMercy Emergency DepartmentISpottedYou.com [id number] 21:23:2512 LEAD EKG FOR [facility] Test Date: 2414-57-91Xad Name: DORA PAEZRY Department: 5520Patient ID: [id number] Room: 7W52Qexhmy: M Environmental Consultant: : 1970 Requested By: KARIN BASSETT AOrder Number: [id number] Reading MD: Chiara Calles MeasurementsIntervals [place] Rate: 72 P: 90PR:157 QRS: 87QRSD: 105 T: 90QT: 360 QTc: 384 Interpretive StatementsSINUS RHYTHMPOSSIBLE RIGHT VENTRICULAR CONDUCTION DELAY [RSR (QR) IN V1/V2]EARLY REPOLARIZATION [ST ELEVATION WITH NORMALLY INFLECTED T- WAVE]Electronically Signed On 01-17-2022 13:02:30 CDT by [facility]1ab Resp Ql OLENA+[id number] 19:57:49 Test Item Value Reference Range Interpretation Comments Hospitalized? (test No code = 05794-7) ICU? (test code = No 75627-1) Symptomatic as No defined by CDC? (test code = 34917-9) Employed in No Healthcare? (test code = 98752-1) Resident in a No congregate care setting (including nursing homes, residential care for people with intellectual and developmental disabilities, psychiatric treatment facilities, group homes, board and care homes, homeless senior living, foster care or other): (test code = 48347-0) SARS-CoV-2 ORF1ab NOT DETECTED Not Detected INTERPRETA TION: No Resp Ql OLENA+probe detectable levels of (test code = SARS-CoV-2 46898-6) Coronavirus (COVID-19) were present in this patient's [...] SARS-CoV-2 mole cular diagnostic assa y utilizes Cane Piler Mediated Amplification ( TMA) technology to r apidly detect the SARS -CoV-2 (COVID-19) viru s from respiratory adriana ples. In accordance with\\XC2A0\\the FDA's guidance docume nt "Policy for Diagnostic Test s for Coronavirus Disease-2019 du ring the Public Heal Emergency", thi s test was developed, and its performance characteristics were verified by the [facility] molecular diagn ostics laboratory and is authorized for clinical diagno stic use. \\XC2A0\\Thi s laboratory is certified under the Clinical Labora tory Improvement Amendments (CLI A) as qualified to pe rform high complexity clinical labora tory testing. [facility] [id number] 13:57:55 Test Item Value Reference Range Interpretation Comments Creatinine POC (test 2.4 mg/dL 0.6-1.3 H Physici an Notified code = 13725706) eGFR (test code = 30 See_Comment L [Automate d message] 33303760) The system [employer] generated this result transmit dani reference range : >=90 mL/min/1.7 3 m2. The reference r meredith was not used to interpret this result as normal/abnormal . eGFR If Am (test 35 See_Comment L [A utomated message] code = 95102480) The system which generated this result transmit dain reference range : >=90 mL/min/1.7 3 m2. The reference r meredith was not used to interpret this result as normal/abnormal . Lab Interpretation (test Abnormal code = 44135-2) [facility] CREATININE POC docked [id number] 13:57:55 Test Item Value Reference Range Interpretation Comments Creatinine POC (test 2.4 mg/dL 0.6-1.3 H Physici an Notified code = 42494623) eGFR (test code = 30 See_Comment L [Automate d message] 36590007) The system [employer] generated this result transmit dain reference range : >=90 mL/min/1.7 3 m2. The reference r meredith was not used to interpret this result as normal/abnormal . eGFR If Am (test 35 See_Comment L [A utomated message] code = 47629303) The system which generated this result transmit dain reference range : >=90 mL/min/1.7 3 m2. The reference r meredith was not used to interpret this result as normal/abnormal . Lab Interpretation (test Abnormal code = 29750-0) [facility] CREATININE POC docked [id number] 13:57:55 Test Item Value Reference Range Interpretation Comments Creatinine POC (test 2.4 mg/dL 0.6-1.3 H Physici an Notified code = 23263841) eGFR (test code = 30 See_Comment L [Automate d message] 58428512) The system [employer] generated this result transmit dain reference range : >=90 mL/min/1.7 3 m2. The reference r meredith was not used to interpret this result as normal/abnormal . eGFR If Am (test 35 See_Comment L [A utomated message] code = 05007380) The system which generated this result transmit dain reference range : >=90 mL/min/1.7 3 m2. The reference r meredith was not used to interpret this result as normal/abnormal . Lab Interpretation (test Abnormal code = 75907-6) [facility] [id number] 13:57:55 Test Item Value Reference Range Interpretation Comments Creatinine POC (test 2.4 mg/dL 0.6-1.3 H Physici an Notified code = 75925907) eGFR (test code = 30 See_Comment L [Automate d message] 66972813) The system [employer] generated this result transmit dain reference range : >=90 mL/min/1.7 3 m2. The reference r meredith was not used to interpret this result as normal/abnormal . eGFR If Am (test 35 See_Comment L [A utomated message] code = 37680604) The system which generated this result transmit dain reference range : >=90 mL/min/1.7 3 m2. The reference r meredith was not used to interpret this result as normal/abnormal . Lab Interpretation (test Abnormal code = 47631-4) [facility] [id number] 13:57:55 Test Item Value Reference Range Interpretation Comments Creatinine POC (test 2.4 mg/dL 0.6-1.3 H Physici an Notified code = 68602363) eGFR (test code = 30 See_Comment L [Automate d message] 63358256) The system [employer] generated this result transmit dain reference range : >=90 mL/min/1.7 3 m2. The reference r meredith was not used to interpret this result as normal/abnormal . eGFR If Am (test 35 See_Comment L [A utomated message] code = 54497348) The system which generated this result transmit dain reference range : >=90 mL/min/1.7 3 m2. The reference r meredith was not used to interpret this result as normal/abnormal . Lab Interpretation (test Abnormal code = 65601-5) [facility] CREATININE POC docked [id number] 13:57:55 Test Item Value Reference Range Interpretation Comments Creatinine POC (test 2.4 mg/dL 0.6-1.3 H Physici an Notified code = 39313364) eGFR (test code = 30 See_Comment L [Automate d message] 08132050) The system [employer] h generated this result transmit dain reference range : >=90 mL/min/1.7 3 m2. The reference r meredith was not used to interpret this result as normal/abnormal . eGFR If Am (test 35 See_Comment L [A utomated message] code = 46732924) The system which generated this result transmit dain reference range : >=90 mL/min/1.7 3 m2. The reference r meredith was not used to interpret this result as normal/abnormal . Lab Interpretation (test Abnormal code = 68328-3) [facility] CREATININE POC docked [id number] 13:57:55 Test Item Value Reference Range Interpretation Comments Creatinine POC (test 2.4 mg/dL 0.6-1.3 H Physici an Notified code = 28254196) eGFR If non- Am 30 See_Comment L [Aut omated message] (test code = 76560843) The s ystem which generated this result transmit dain reference range : >=90 mL/min/1.7 3 m2. The reference r meredith was not used to interpret this result as normal/abnormal . eGFR If Am (test 35 See_Comment L [A utomated message] code = 07811504) The system which generated this result transmit dain reference range : >=90 mL/min/1.7 3 m2. The reference r meredith was not used to interpret this result as normal/abnormal . Lab Interpretation (test Abnormal code = 18031-0) [facility] CREATININE POC docked [id number] 13:57:55 Test Item Value Reference Range Interpretation Comments Creatinine POC (test 2.4 mg/dL 0.6-1.3 H Physici an Notified code = 36627317) eGFR If non- Am 30 See_Comment L [Aut omated message] (test code = 82629955) The s ystem which generated this result transmit dain reference range : >=90 mL/min/1.7 3 m2. The reference r meredith was not used to interpret this result as normal/abnormal . eGFR If Am (test 35 See_Comment L [A utomated message] code = 48673264) The system which generated this result transmit dain reference range : >=90 mL/min/1.7 3 m2. The reference r meredith was not used to interpret this result as normal/abnormal . Lab Interpretation (test Abnormal code = 37178-1) [facility] CREATININE POC docked [id number] 13:57:55 Test Item Value Reference Range Interpretation Comments Creatinine POC (test 2.4 mg/dL 0.6-1.3 H Physici an Notified code = 50804223) eGFR If non- Am 30 See_Comment L [Aut omated message] (test code = 37003612) The s ystem which generated this result transmit dain reference range : >=90 mL/min/1.7 3 m2. The reference r meredith was not used to interpret this result as normal/abnormal . eGFR If Am (test 35 See_Comment L [A utomated message] code = 12704326) The system which generated this result transmit dain reference range : >=90 mL/min/1.7 3 m2. The reference r meredith was not used to interpret this result as normal/abnormal . Lab Interpretation (test Abnormal code = 54027-3) [facility] CREATININE POC docked [id number] 13:57:55 Test Item Value Reference Range Interpretation Comments Creatinine POC (test 2.4 mg/dL 0.6-1.3 H Physici an Notified code = 80629326) eGFR If non- Am 30 See_Comment L [Aut omated message] (test code = 60897070) The s ystem which generated this result transmit dain reference range : >=90 mL/min/1.7 3 m2. The reference r meredith was not used to interpret this result as normal/abnormal . eGFR If Am (test 35 See_Comment L [A utomated message] code = 18075377) The system which generated this result transmit dain reference range : >=90 mL/min/1.7 3 m2. The reference r meredith was not used to interpret this result as normal/abnormal . Lab Interpretation (test Abnormal code = 31026-8) [facility] [id number] 13:57:55 Test Item Value Reference Range Interpretation Comments Creatinine POC (test 2.4 mg/dL 0.6-1.3 H Physici an Notified code = 34729761) eGFR If non- Am 30 See_Comment L [Aut omated message] (test code = 53725693) The s ystem which generated this result transmit dain reference range : >=90 mL/min/1.7 3 m2. The reference r meredith was not used to interpret this result as normal/abnormal . eGFR If Am (test 35 See_Comment L [A utomated message] code = 71305669) The system which generated this result transmit dain reference range : >=90 mL/min/1.7 3 m2. The reference r meredith was not used to interpret this result as normal/abnormal . Lab Interpretation (test Abnormal code = 54778-1) [facility] [id number] 13:57:55 Test Item Value Reference Range Interpretation Comments Creatinine POC (test 2.4 mg/dL 0.6-1.3 H Physici an Notified code = 60546786) eGFR If non- Am 30 See_Comment L [Aut omated message] (test code = 44715557) The s ystem which generated this result transmit dain reference range : >=90 mL/min/1.7 3 m2. The reference r meredith was not used to interpret this result as normal/abnormal . eGFR If Am (test 35 See_Comment L [A utomated message] code = 08582591) The system which generated this result transmit dain reference range : >=90 mL/min/1.7 3 m2. The reference r meredith was not used to interpret this result as normal/abnormal . Lab Interpretation (test Abnormal code = 19572-5) [facility] [id number] 13:57:55 Test Item Value Reference Range Interpretation Comments Creatinine POC (test 2.4 mg/dL 0.6-1.3 H Physici an Notified code = 25705106) eGFR If non- Am 30 See_Comment L [Aut omated message] (test code = 04961615) The s ystem which generated this result transmit dain reference range : >=90 mL/min/1.7 3 m2. The reference r meredith was not used to interpret this result as normal/abnormal . eGFR If Am (test 35 See_Comment L [A utomated message] code = 37242343) The system which generated this result transmit dain reference range : >=90 mL/min/1.7 3 m2. The reference r meredith was not used to interpret this result as normal/abnormal . Lab Interpretation (test Abnormal code = 87369-6) [facility] CREATININE POC docked [id number] 13:57:55 Test Item Value Reference Range Interpretation Comments Creatinine POC (test 2.4 mg/dL 0.6-1.3 H Physici an Notified code = 52880870) eGFR If non- Am 30 See_Comment L [Aut omated message] (test code = 16745426) The s ystem which generated this result transmit dain reference range : >=90 mL/min/1.7 3 m2. The reference r meredith was not used to interpret this result as normal/abnormal . eGFR If Am (test 35 See_Comment L [A utomated message] code = 78798845) The system which generated this result transmit dain reference range : >=90 mL/min/1.7 3 m2. The reference r meredith was not used to interpret this result as normal/abnormal . Lab Interpretation (test Abnormal code = 25791-1) [facility] CREATININE POC docked [id number] 13:57:55 Test Item Value Reference Range Interpretation Comments Creatinine POC (test 2.4 mg/dL 0.6-1.3 H Physici an Notified code = 95303951) eGFR If non- Am 30 See_Comment L [Aut omated message] (test code = 25081675) The s ystem which generated this result transmit dain reference range : >=90 mL/min/1.7 3 m2. The reference r meredith was not used to interpret this result as normal/abnormal . eGFR If Am (test 35 See_Comment L [A utomated message] code = 21661065) The system which generated this result transmit dain reference range : >=90 mL/min/1.7 3 m2. The reference r meredith was not used to interpret this result as normal/abnormal . Lab Interpretation (test Abnormal code = 21883-9) [facility] CREATININE POC docked [id number] 13:57:55 Test Item Value Reference Range Interpretation Comments Creatinine POC (test 2.4 mg/dL 0.6-1.3 H Physici an Notified code = 51487820) eGFR If non- Am 30 See_Comment L [Aut omated message] (test code = 96856825) The s ystem which generated this result transmit dain reference range : >=90 mL/min/1.7 3 m2. The reference r meredith was not used to interpret this result as normal/abnormal . eGFR If Am (test 35 See_Comment L [A utomated message] code = 26728633) The system which generated this result transmit dain reference range : >=90 mL/min/1.7 3 m2. The reference r meredith was not used to interpret this result as normal/abnormal . Lab Interpretation (test Abnormal code = 39341-0) [facility] CREATININE POC docked [id number] 13:57:55 Test Item Value Reference Range Interpretation Comments Creatinine POC (test 2.4 mg/dL 0.6-1.3 H Physici an Notified code = 36072937) eGFR If non- Am 30 See_Comment L [Aut omated message] (test code = 27436294) The s ystem which generated this result transmit dain reference range : >=90 mL/min/1.7 3 m2. The reference r meredith was not used to interpret this result as normal/abnormal . eGFR If Am (test 35 See_Comment L [A utomated message] code = 77912248) The system which generated this result transmit dain reference range : >=90 mL/min/1.7 3 m2. The reference r meredith was not used to interpret this result as normal/abnormal . Lab Interpretation (test Abnormal code = 99126-9) [facility] [id number] 13:57:55 Test Item Value Reference Range Interpretation Comments Creatinine POC (test 2.4 mg/dL 0.6-1.3 H Physici an Notified code = 12523702) eGFR If non- Am 30 See_Comment L [Aut omated message] (test code = 54190903) The s ystem which generated this result transmit dain reference range : >=90 mL/min/1.7 3 m2. The reference r meredith was not used to interpret this result as normal/abnormal . eGFR If Am (test 35 See_Comment L [A utomated message] code = 35491446) The system which generated this result transmit dain reference range : >=90 mL/min/1.7 3 m2. The reference r meredith was not used to interpret this result as normal/abnormal . Lab Interpretation (test Abnormal code = 17787-5) [facility] CREATININE POC docked [id number] 13:57:55 Test Item Value Reference Range Interpretation Comments Creatinine POC (test 2.4 mg/dL 0.6-1.3 H Physici an Notified code = 11638441) eGFR If non- Am 30 See_Comment L [Aut omated message] (test code = 00799197) The s ystem which generated this result transmit dain reference range : >=90 mL/min/1.7 3 m2. The reference r meredith was not used to interpret this result as normal/abnormal . eGFR If Am (test 35 See_Comment L [A utomated message] code = 86709513) The system which generated this result transmit dain reference range : >=90 mL/min/1.7 3 m2. The reference r meredith was not used to interpret this result as normal/abnormal . Lab Interpretation (test Abnormal code = 26639-6) [facility] CREATININE POC docked [id number] 13:57:55 Test Item Value Reference Range Interpretation Comments Creatinine POC (test 2.4 mg/dL 0.6-1.3 H Physici an Notified code = 38012204) eGFR If non- Am 30 See_Comment L [Aut omated message] (test code = 46733480) The s ystem which generated this result transmit dain reference range : >=90 mL/min/1.7 3 m2. The reference r meredith was not used to interpret this result as normal/abnormal . eGFR If Am (test 35 See_Comment L [A utomated message] code = 59897518) The system which generated this result transmit dain reference range : >=90 mL/min/1.7 3 m2. The reference r meredith was not used to interpret this result as normal/abnormal . Lab Interpretation (test Abnormal code = 45154-1) [facility] CREATININE POC docked [id number] 13:57:55 Test Item Value Reference Range Interpretation Comments Creatinine POC (test 2.4 mg/dL 0.6-1.3 H Physici an Notified code = 57590564) eGFR If non- Am 30 See_Comment L [Aut omated message] (test code = 53009440) The s ystem which generated this result transmit dain reference range : >=90 mL/min/1.7 3 m2. The reference r meredith was not used to interpret this result as normal/abnormal . eGFR If Am (test 35 See_Comment L [A utomated message] code = 83958439) The system which generated this result transmit dain reference range : >=90 mL/min/1.7 3 m2. The reference r meredith was not used to interpret this result as normal/abnormal . Lab Interpretation (test Abnormal code = 82201-6) [facility] CREATININE POC docked [id number] 13:57:55 Test Item Value Reference Range Interpretation Comments Creatinine POC (test 2.4 mg/dL 0.6-1.3 H Physici an Notified code = 56821412) eGFR (test code = 30 See_Comment L [Automate d message] 40114146) The system [employer] h generated this result transmit dain reference range : >=90 mL/min/1.7 3 m2. The reference r meredith was not used to interpret this result as normal/abnormal . eGFR If Am (test 35 See_Comment L [A utomated message] code = 13140546) The system which generated this result transmit dain reference range : >=90 mL/min/1.7 3 m2. The reference r meredith was not used to interpret this result as normal/abnormal . Lab Interpretation (test Abnormal code = 30325-8) [facility] CREATININE POC docked [id number] 13:57:55 Test Item Value Reference Range Interpretation Comments Creatinine POC (test 2.4 mg/dL 0.6-1.3 H Physici an Notified code = 95456709) eGFR (test code = 30 See_Comment L [Automate d message] 19270333) The system whic h generated this result transmit dain reference range : >=90 mL/min/1.7 3 m2. The reference r meredith was not used to interpret this result as normal/abnormal . eGFR If Am (test 35 See_Comment L [A utomated message] code = 36056438) The system which generated this result transmit dain reference range : >=90 mL/min/1.7 3 m2. The reference r meredith was not used to interpret this result as normal/abnormal . Lab Interpretation (test Abnormal code = 49209-0) [facility] BMP POC docked [id number] 13:48:46 Test Item Value Reference Range Interpretation Comments Sodium POC (test code = 126 mmol/L 136-145 L 96960261) Potassium POC (test code 4.4 mmol/L 3.5-5.1 = 16364278) Chloride POC (test code 100 mmol/L 98-107 = 35041102) TCO2 POC (test code = 17 mmol/L 21-32 L Physic aylin Notified 97153650) Urea Nitrogen POC (test 36 mg/dL 7-18 H code = 57701864) Glucose POC (test code = 114 mg/dL 74-106 H 56830056) Hemoglobin POC (test 11.9 g/dL 12-16 L code = 15692924) Hematocrit POC (test 35.0 % 37.0-47.0 L code = 72151497) Lab Interpretation (test Abnormal code = 58306-9) [facility] BMP POC docked [id number] 13:48:46 Test Item Value Reference Range Interpretation Comments Sodium POC (test code = 126 mmol/L 136-145 L 66073633) Potassium POC (test code 4.4 mmol/L 3.5-5.1 = 97643904) Chloride POC (test code 100 mmol/L 98-107 = 09745429) TCO2 POC (test code = 17 mmol/L 21-32 L Physic aylin Notified 67837788) Urea Nitrogen POC (test 36 mg/dL 7-18 H code = 36438458) Glucose POC (test code = 114 mg/dL 74-106 H 46908162) Hemoglobin POC (test 11.9 g/dL 12-16 L code = 28184884) Hematocrit POC (test 35.0 % 37.0-47.0 L code = 17076516) Lab Interpretation (test Abnormal code = 15199-4) [facility] POC docked [id number] 13:48:46 Test Item Value Reference Range Interpretation Comments Sodium POC (test code = 126 mmol/L 136-145 L 25212321) Potassium POC (test code 4.4 mmol/L 3.5-5.1 = 21604098) Chloride POC (test code 100 mmol/L 98-107 = 44392759) TCO2 POC (test code = 17 mmol/L 21-32 L Physic aylin Notified 64803780) Urea Nitrogen POC (test 36 mg/dL 7-18 H code = 00860422) Glucose POC (test code = 114 mg/dL 74-106 H 36883109) Hemoglobin POC (test 11.9 g/dL 12-16 L code = 71871323) Hematocrit POC (test 35.0 % 37.0-47.0 L code = 25740072) Lab Interpretation (test Abnormal code = 64622-7) [facility] POC docked [id number] 13:48:46 Test Item Value Reference Range Interpretation Comments Sodium POC (test code = 126 mmol/L 136-145 L 64510014) Potassium POC (test code 4.4 mmol/L 3.5-5.1 = 52145321) Chloride POC (test code 100 mmol/L 98-107 = 69380509) TCO2 POC (test code = 17 mmol/L 21-32 L Physic aylin Notified 39310241) Urea Nitrogen POC (test 36 mg/dL 7-18 H code = 21846959) Glucose POC (test code = 114 mg/dL 74-106 H 61519036) Hemoglobin POC (test 11.9 g/dL 12-16 L code = 57345208) Hematocrit POC (test 35.0 % 37.0-47.0 L code = 90357893) Lab Interpretation (test Abnormal code = 60410-2) [facility] POC docked [id number] 13:48:46 Test Item Value Reference Range Interpretation Comments Sodium POC (test code = 126 mmol/L 136-145 L 64374360) Potassium POC (test code 4.4 mmol/L 3.5-5.1 = 53226912) Chloride POC (test code 100 mmol/L 98-107 = 68007307) TCO2 POC (test code = 17 mmol/L 21-32 L Physic aylin Notified 01417872) Urea Nitrogen POC (test 36 mg/dL 7-18 H code = 69167801) Glucose POC (test code = 114 mg/dL 74-106 H 07282023) Hemoglobin POC (test 11.9 g/dL 12-16 L code = 80650977) Hematocrit POC (test 35.0 % 37.0-47.0 L code = 97080690) Lab Interpretation (test Abnormal code = 59293-3) [facility] POC docked [id number] 13:48:46 Test Item Value Reference Range Interpretation Comments Sodium POC (test code = 126 mmol/L 136-145 L 91227834) Potassium POC (test code 4.4 mmol/L 3.5-5.1 = 47465033) Chloride POC (test code 100 mmol/L 98-107 = 22016528) TCO2 POC (test code = 17 mmol/L 21-32 L Physic aylin Notified 09504734) Urea Nitrogen POC (test 36 mg/dL 7-18 H code = 65108725) Glucose POC (test code = 114 mg/dL 74-106 H 60175777) Hemoglobin POC (test 11.9 g/dL 12-16 L code = 36305439) Hematocrit POC (test 35.0 % 37.0-47.0 L code = 71982215) Lab Interpretation (test Abnormal code = 72841-2) [facility] POC docked [id number] 13:48:46 Test Item Value Reference Range Interpretation Comments Sodium POC (test code = 126 mmol/L 136-145 L 56138877) Potassium POC (test code 4.4 mmol/L 3.5-5.1 = 96886969) Chloride POC (test code 100 mmol/L 98-107 = 89106926) TCO2 POC (test code = 17 mmol/L 21-32 L Physic aylin Notified 76958069) Urea Nitrogen POC (test 36 mg/dL 7-18 H code = 66210787) Glucose POC (test code = 114 mg/dL 74-106 H 03427979) Hemoglobin POC (test 11.9 g/dL 12-16 L code = 76063161) Hematocrit POC (test 35.0 % 37.0-47.0 L code = 56420504) Lab Interpretation (test Abnormal code = 97235-4) [facility] POC docked [id number] 13:48:46 Test Item Value Reference Range Interpretation Comments Sodium POC (test code = 126 mmol/L 136-145 L 60931533) Potassium POC (test code 4.4 mmol/L 3.5-5.1 = 40450675) Chloride POC (test code 100 mmol/L 98-107 = 30202452) TCO2 POC (test code = 17 mmol/L 21-32 L Physic aylin Notified 03915820) Urea Nitrogen POC (test 36 mg/dL 7-18 H code = 30585420) Glucose POC (test code = 114 mg/dL 74-106 H 49222383) Hemoglobin POC (test 11.9 g/dL 12-16 L code = 51698115) Hematocrit POC (test 35.0 % 37.0-47.0 L code = 82018556) Lab Interpretation (test Abnormal code = 94120-9) [facility] POC docked [id number] 13:48:46 Test Item Value Reference Range Interpretation Comments Sodium POC (test code = 126 mmol/L 136-145 L 14624816) Potassium POC (test code 4.4 mmol/L 3.5-5.1 = 32364054) Chloride POC (test code 100 mmol/L 98-107 = 25678261) TCO2 POC (test code = 17 mmol/L 21-32 L Physic aylin Notified 77769135) Urea Nitrogen POC (test 36 mg/dL 7-18 H code = 54021994) Glucose POC (test code = 114 mg/dL 74-106 H 96392555) Hemoglobin POC (test 11.9 g/dL 12-16 L code = 73292481) Hematocrit POC (test 35.0 % 37.0-47.0 L code = 03239396) Lab Interpretation (test Abnormal code = 73612-5) [facility] POC docked [id number] 13:48:46 Test Item Value Reference Range Interpretation Comments Sodium POC (test code = 126 mmol/L 136-145 L 20893886) Potassium POC (test code 4.4 mmol/L 3.5-5.1 = 24261698) Chloride POC (test code 100 mmol/L 98-107 = 42244610) TCO2 POC (test code = 17 mmol/L 21-32 L Physic aylin Notified 57690390) Urea Nitrogen POC (test 36 mg/dL 7-18 H code = 85015477) Glucose POC (test code = 114 mg/dL 74-106 H 93431540) Hemoglobin POC (test 11.9 g/dL 12-16 L code = 92523665) Hematocrit POC (test 35.0 % 37.0-47.0 L code = 04201425) Lab Interpretation (test Abnormal code = 94299-4) [facility] POC docked [id number] 13:48:46 Test Item Value Reference Range Interpretation Comments Sodium POC (test code = 126 mmol/L 136-145 L 60283150) Potassium POC (test code 4.4 mmol/L 3.5-5.1 = 44771265) Chloride POC (test code 100 mmol/L 98-107 = 01939469) TCO2 POC (test code = 17 mmol/L 21-32 L Physic aylin Notified 09867340) Urea Nitrogen POC (test 36 mg/dL 7-18 H code = 76798217) Glucose POC (test code = 114 mg/dL 74-106 H 72751205) Hemoglobin POC (test 11.9 g/dL 12-16 L code = 84878231) Hematocrit POC (test 35.0 % 37.0-47.0 L code = 40286508) Lab Interpretation (test Abnormal code = 40534-9) [facility] POC docked [id number] 13:48:46 Test Item Value Reference Range Interpretation Comments Sodium POC (test code = 126 mmol/L 136-145 L 22007061) Potassium POC (test code 4.4 mmol/L 3.5-5.1 = 12196167) Chloride POC (test code 100 mmol/L 98-107 = 60954050) TCO2 POC (test code = 17 mmol/L 21-32 L Physic aylin Notified 09451980) Urea Nitrogen POC (test 36 mg/dL 7-18 H code = 76727773) Glucose POC (test code = 114 mg/dL 74-106 H 84264241) Hemoglobin POC (test 11.9 g/dL 12-16 L code = 83540990) Hematocrit POC (test 35.0 % 37.0-47.0 L code = 83214211) Lab Interpretation (test Abnormal code = 04279-1) [facility] POC docked [id number] 13:48:46 Test Item Value Reference Range Interpretation Comments Sodium POC (test code = 126 mmol/L 136-145 L 97122612) Potassium POC (test code 4.4 mmol/L 3.5-5.1 = 17668856) Chloride POC (test code 100 mmol/L 98-107 = 82388867) TCO2 POC (test code = 17 mmol/L 21-32 L Physic aylin Notified 17316596) Urea Nitrogen POC (test 36 mg/dL 7-18 H code = 08653381) Glucose POC (test code = 114 mg/dL 74-106 H 40933364) Hemoglobin POC (test 11.9 g/dL 12-16 L code = 87513196) Hematocrit POC (test 35.0 % 37.0-47.0 L code = 77805138) Lab Interpretation (test Abnormal code = 09600-3) [facility] POC docked [id number] 13:48:46 Test Item Value Reference Range Interpretation Comments Sodium POC (test code = 126 mmol/L 136-145 L 79654543) Potassium POC (test code 4.4 mmol/L 3.5-5.1 = 18373635) Chloride POC (test code 100 mmol/L 98-107 = 40808918) TCO2 POC (test code = 17 mmol/L 21-32 L Physic aylin Notified 26902672) Urea Nitrogen POC (test 36 mg/dL 7-18 H code = 20755451) Glucose POC (test code = 114 mg/dL 74-106 H 59299195) Hemoglobin POC (test 11.9 g/dL 12-16 L code = 94120389) Hematocrit POC (test 35.0 % 37.0-47.0 L code = 53653154) Lab Interpretation (test Abnormal code = 54139-1) [facility] POC docked [id number] 13:48:46 Test Item Value Reference Range Interpretation Comments Sodium POC (test code = 126 mmol/L 136-145 L 97267800) Potassium POC (test code 4.4 mmol/L 3.5-5.1 = 76750387) Chloride POC (test code 100 mmol/L 98-107 = 27431039) TCO2 POC (test code = 17 mmol/L 21-32 L Physic aylin Notified 74886586) Urea Nitrogen POC (test 36 mg/dL 7-18 H code = 98120201) Glucose POC (test code = 114 mg/dL 74-106 H 15595188) Hemoglobin POC (test 11.9 g/dL 12-16 L code = 53378617) Hematocrit POC (test 35.0 % 37.0-47.0 L code = 59724490) Lab Interpretation (test Abnormal code = 63594-3) [facility] POC docked [id number] 13:48:46 Test Item Value Reference Range Interpretation Comments Sodium POC (test code = 126 mmol/L 136-145 L 76186866) Potassium POC (test code 4.4 mmol/L 3.5-5.1 = 61945178) Chloride POC (test code 100 mmol/L 98-107 = 38058140) TCO2 POC (test code = 17 mmol/L 21-32 L Physic aylin Notified 89095160) Urea Nitrogen POC (test 36 mg/dL 7-18 H code = 92628172) Glucose POC (test code = 114 mg/dL 74-106 H 68644754) Hemoglobin POC (test 11.9 g/dL 12-16 L code = 80866415) Hematocrit POC (test 35.0 % 37.0-47.0 L code = 58219003) Lab Interpretation (test Abnormal code = 70720-4) [facility] POC docked [id number] 13:48:46 Test Item Value Reference Range Interpretation Comments Sodium POC (test code = 126 mmol/L 136-145 L 95170801) Potassium POC (test code 4.4 mmol/L 3.5-5.1 = 37542598) Chloride POC (test code 100 mmol/L 98-107 = 04519826) TCO2 POC (test code = 17 mmol/L 21-32 L Physic aylin Notified 51155984) Urea Nitrogen POC (test 36 mg/dL 7-18 H code = 51675325) Glucose POC (test code = 114 mg/dL 74-106 H 22883240) Hemoglobin POC (test 11.9 g/dL 12-16 L code = 94196919) Hematocrit POC (test 35.0 % 37.0-47.0 L code = 55448376) Lab Interpretation (test Abnormal code = 94609-9) [facility] POC docked [id number] 13:48:46 Test Item Value Reference Range Interpretation Comments Sodium POC (test code = 126 mmol/L 136-145 L 24699371) Potassium POC (test code 4.4 mmol/L 3.5-5.1 = 03309119) Chloride POC (test code 100 mmol/L 98-107 = 94950772) TCO2 POC (test code = 17 mmol/L 21-32 L Physic aylin Notified 18337557) Urea Nitrogen POC (test 36 mg/dL 7-18 H code = 55079523) Glucose POC (test code = 114 mg/dL 74-106 H 40244365) Hemoglobin POC (test 11.9 g/dL 12-16 L code = 60042264) Hematocrit POC (test 35.0 % 37.0-47.0 L code = 65155329) Lab Interpretation (test Abnormal code = 30121-0) [facility] POC docked [id number] 13:48:46 Test Item Value Reference Range Interpretation Comments Sodium POC (test code = 126 mmol/L 136-145 L 25567776) Potassium POC (test code 4.4 mmol/L 3.5-5.1 = 45531591) Chloride POC (test code 100 mmol/L 98-107 = 39187980) TCO2 POC (test code = 17 mmol/L 21-32 L Physic aylin Notified 34507916) Urea Nitrogen POC (test 36 mg/dL 7-18 H code = 83573951) Glucose POC (test code = 114 mg/dL 74-106 H 42141264) Hemoglobin POC (test 11.9 g/dL 12-16 L code = 11992760) Hematocrit POC (test 35.0 % 37.0-47.0 L code = 69001892) Lab Interpretation (test Abnormal code = 35719-8) [facility] POC docked [id number] 13:48:46 Test Item Value Reference Range Interpretation Comments Sodium POC (test code = 126 mmol/L 136-145 L 06056524) Potassium POC (test code 4.4 mmol/L 3.5-5.1 = 56385064) Chloride POC (test code 100 mmol/L 98-107 = 97779273) TCO2 POC (test code = 17 mmol/L 21-32 L Physic aylin Notified 63825478) Urea Nitrogen POC (test 36 mg/dL 7-18 H code = 57952319) Glucose POC (test code = 114 mg/dL 74-106 H 99666766) Hemoglobin POC (test 11.9 g/dL 12-16 L code = 28226384) Hematocrit POC (test 35.0 % 37.0-47.0 L code = 94566673) Lab Interpretation (test Abnormal code = 49664-6) [facility] POC docked [id number] 13:48:46 Test Item Value Reference Range Interpretation Comments Sodium POC (test code = 126 mmol/L 136-145 L 79278581) Potassium POC (test code 4.4 mmol/L 3.5-5.1 = 22054592) Chloride POC (test code 100 mmol/L 98-107 = 53422334) TCO2 POC (test code = 17 mmol/L 21-32 L Physic aylin Notified 35515356) Urea Nitrogen POC (test 36 mg/dL 7-18 H code = 34125397) Glucose POC (test code = 114 mg/dL 74-106 H 48578140) Hemoglobin POC (test 11.9 g/dL 12-16 L code = 40434632) Hematocrit POC (test 35.0 % 37.0-47.0 L code = 26208994) Lab Interpretation (test Abnormal code = 65311-2) [facility] BMP POC docked [id number] 13:48:46 Test Item Value Reference Range Interpretation Comments Sodium POC (test code = 126 mmol/L 136-145 L 10448382) Potassium POC (test code 4.4 mmol/L 3.5-5.1 = 89386898) Chloride POC (test code 100 mmol/L 98-107 = 01930890) TCO2 POC (test code = 17 mmol/L 21-32 L Physic aylin Notified 13303851) Urea Nitrogen POC (test 36 mg/dL 7-18 H code = 85681678) Glucose POC (test code = 114 mg/dL 74-106 H 27674873) Hemoglobin POC (test 11.9 g/dL 12-16 L code = 88895699) Hematocrit POC (test 35.0 % 37.0-47.0 L code = 65364381) Lab Interpretation (test Abnormal code = 04483-9) [facility] POC docked [id number] 13:48:46 Test Item Value Reference Range Interpretation Comments Sodium POC (test code = 126 mmol/L 136-145 L 90985846) Potassium POC (test code 4.4 mmol/L 3.5-5.1 = 70654249) Chloride POC (test code 100 mmol/L 98-107 = 73434939) TCO2 POC (test code = 17 mmol/L 21-32 L Physic aylin Notified 79032127) Urea Nitrogen POC (test 36 mg/dL 7-18 H code = 06415093) Glucose POC (test code = 114 mg/dL 74-106 H 47083864) Hemoglobin POC (test 11.9 g/dL 12-16 L code = 44751982) Hematocrit POC (test 35.0 % 37.0-47.0 L code = 27009275) Lab Interpretation (test Abnormal code = 52662-5) [facility]-CoV-2 ORF1ab Resp Ql OLENA+[id number] 20:25:16 Test Item Value Reference Range Interpretation Comments Hospitalized? (test No code = 89045-3) ICU? (test code = No 52552-9) Symptomatic as No defined by CDC? (test code = 44207-2) Employed in No Healthcare? (test code = 13154-6) Resident in a No congregate care setting (including nursing homes, residential care for people with intellectual and developmental disabilities, psychiatric treatment facilities, group homes, board and care homes, homeless senior living, foster care or other): (test code = 77548-6) SARS-CoV-2 ORF1ab NOT DETECTED Not Detected INTERPRETA TION: No Resp Ql OLENA+probe detectable levels of (test code = SARS-CoV-2 81884-9) Coronavirus (COVID-19) were present in this patient's [...] SARS-CoV-2 mole cular diagnostic assa y utilizes Cane Piler Mediated Amplification ( TMA) technology to r apidly detect the SARS -CoV-2 (COVID-19) viru s from respiratory adriana ples. In accordance with\\XC2A0\\the FDA's guidance docume nt "Policy for Diagnostic Test s for Coronavirus Disease-2019 du ring the [facility]", ginger s test was developed, and its performance characteristics were verified by the [facility] molecular diagn ostics laboratory and is authorized for clinical diagno stic use. \\XC2A0\\Thi s laboratory is certified under the Clinical Labora tory Improvement Amendments (CLI A) as qualified to pe rform high complexity clinical labora tory testing. [facility] POC docked [id number] 11:16:15 Test Item Value Reference Range Interpretation Comments pH, Pankaj POC (test code 7.32 7.33-7.43 L = 58938786) pCO2,Pankaj POC (test code 31.0 See_Comment L [Au tomated = 98005630) message] The sy stem which generated this result transmitted reference range : 38 - 50 mmHg. The reference range was not used to interpret this result as normal/abnormal . PO2, Venous POC (BKR) 44 See_Comment L [Auto mated (test code = 42919008) Moozeya Choosly] The system which generated this result transmitted reference range : 50 - 75 mm Hg. The reference range was not used to interpret this result as normal/abnormal . Ionized Calcium POC 1.24 mmol/L 1.15-1.29 (test code = 06538467) HCO3, Pankaj POC (test 16 mmol/L 22-26 L code = 73965175) TCO2 POC (test code = 17 mmol/L 21-32 L 63682720) Base Deficit, Pankaj POC -9 (test code = 35165878) Sample Type (test code IVEN Physi erik Notified = 61318659) % Sat, Pankaj POC (test 77 % code = 90973460) Lab Interpretation Abnormal (test code = 85558-8) [facility] VBG POC docked [id number] 11:16:15 Test Item Value Reference Range Interpretation Comments pH, Pankaj POC (test code 7.32 7.33-7.43 L = 51351080) pCO2,Pankaj POC (test code 31.0 See_Comment L [Au tomated = 71157563) message] The sy stem which generated this result transmitted reference range : 38 - 50 mmHg. The reference range was not used to interpret this result as normal/abnormal . PO2, Venous POC (BKR) 44 See_Comment L [Auto mated (test code = 18724041) Moozeya Choosly] The system which generated this result transmitted reference range : 50 - 75 mm Hg. The reference range was not used to interpret this result as normal/abnormal . Ionized Calcium POC 1.24 mmol/L 1.15-1.29 (test code = 69051619) HCO3, Pankaj POC (test 16 mmol/L 22-26 L code = 42745513) TCO2 POC (test code = 17 mmol/L 21-32 L 54587875) Base Deficit, Pankaj POC -9 (test code = 63910008) Sample Type (test code IVEN Physi erik Notified = 28610647) % Sat, Pankaj POC (test 77 % code = 30310811) Lab Interpretation Abnormal (test code = 75163-2) [facility] VBG POC docked [id number] 11:16:15 Test Item Value Reference Range Interpretation Comments pH, Pankaj POC (test code 7.32 7.33-7.43 L = 42595880) pCO2,Pankaj POC (test code 31.0 See_Comment L [Au tomated = 81403455) message] The sy stem which generated this result transmitted reference range : 38 - 50 mmHg. The reference range was not used to interpret this result as normal/abnormal . PO2, Venous POC (BKR) 44 See_Comment L [Auto mated (test code = 63886142) messa ge] The system which generated this result transmitted reference range : 50 - 75 mm Hg. The reference range was not used to interpret this result as normal/abnormal . Ionized Calcium POC 1.24 mmol/L 1.15-1.29 (test code = 76206064) HCO3, Pankaj POC (test 16 mmol/L 22-26 L code = 34284717) TCO2 POC (test code = 17 mmol/L 21-32 L 03917317) Base Deficit, Pankaj POC -9 (test code = 50716305) Sample Type (test code STEPAN Physi erik Notified = 46024661) % Sat, Pankaj POC (test 77 % code = 91737484) Lab Interpretation Abnormal (test code = 39331-7) [facility] VBG POC docked [id number] 11:16:15 Test Item Value Reference Range Interpretation Comments pH, Pankaj POC (test code 7.32 7.33-7.43 L = 62449858) pCO2,Pankaj POC (test code 31.0 See_Comment L [Au tomated = 46783271) message] The sy stem which generated this result transmitted reference range : 38 - 50 mmHg. The reference range was not used to interpret this result as normal/abnormal . PO2, Venous POC (BKR) 44 See_Comment L [Auto mated (test code = 54763533) messa ge] The system which generated this result transmitted reference range : 50 - 75 mm Hg. The reference range was not used to interpret this result as normal/abnormal . Ionized Calcium POC 1.24 mmol/L 1.15-1.29 (test code = 53882029) HCO3, Pankaj POC (test 16 mmol/L 22-26 L code = 17913685) TCO2 POC (test code = 17 mmol/L 21-32 L 63565607) Base Deficit, Pankaj POC -9 (test code = 25117794) Sample Type (test code STEPAN valencia Notified = 76699044) % Sat, Pankaj POC (test 77 % code = 71645521) Lab Interpretation Abnormal (test code = 51382-6) [facility] VBG POC docked [id number] 11:16:15 Test Item Value Reference Range Interpretation Comments pH, Pankaj POC (test code 7.32 7.33-7.43 L = 84470898) pCO2,Pankaj POC (test code 31.0 See_Comment L [Au tomated = 65749406) message] The sy stem which generated this result transmitted reference range : 38 - 50 mmHg. The reference range was not used to interpret this result as normal/abnormal . PO2, Venous POC (BKR) 44 See_Comment L [Auto mated (test code = 88293509) Moozeya ge] The system which generated this result transmitted reference range : 50 - 75 mm Hg. The reference range was not used to interpret this result as normal/abnormal . Ionized Calcium POC 1.24 mmol/L 1.15-1.29 (test code = 77760034) HCO3, Pankaj POC (test 16 mmol/L 22-26 L code = 12532210) TCO2 POC (test code = 17 mmol/L 21-32 L 52557044) Base Deficit, Pankaj POC -9 (test code = 54754832) Sample Type (test code STEPAN valencia Notified = 99205983) % Sat, Pankaj POC (test 77 % code = 20329882) Lab Interpretation Abnormal (test code = 34135-0) [facility] VBG POC docked [id number] 11:16:15 Test Item Value Reference Range Interpretation Comments pH, Pankaj POC (test code 7.32 7.33-7.43 L = 67898278) pCO2,Pankaj POC (test code 31.0 See_Comment L [Au tomated = 85346118) message] The sy stem which generated this result transmitted reference range : 38 - 50 mmHg. The reference range was not used to interpret this result as normal/abnormal . PO2, Venous POC (BKR) 44 See_Comment L [Auto mated (test code = 30482307) Yvolver] The system which generated this result transmitted reference range : 50 - 75 mm Hg. The reference range was not used to interpret this result as normal/abnormal . Ionized Calcium POC 1.24 mmol/L 1.15-1.29 (test code = 46642221) HCO3, Pankaj POC (test 16 mmol/L 22-26 L code = 53837452) TCO2 POC (test code = 17 mmol/L 21-32 L 52801196) Base Deficit, Pankaj POC -9 (test code = 33379786) Sample Type (test code IVFLORENCE Physi erik Notified = 77286340) % Sat, Pankaj POC (test 77 % code = 95209658) Lab Interpretation Abnormal (test code = 22741-3) [facility] VBG POC docked [id number] 11:16:15 Test Item Value Reference Range Interpretation Comments pH, Pankaj POC (test code 7.32 7.33-7.43 L = 93276096) pCO2,Pankaj POC (test code 31.0 See_Comment L [Au tomated = 07332024) message] The sy stem which generated this result transmitted reference range : 38 - 50 mmHg. The reference range was not used to interpret this result as normal/abnormal . PO2, Venous POC (BKR) 44 See_Comment L [Auto mated (test code = 85026469) [employer]volver] The system which generated this result transmitted reference range : 50 - 75 mm Hg. The reference range was not used to interpret this result as normal/abnormal . Ionized Calcium POC 1.24 mmol/L 1.15-1.29 (test code = 48467191) HCO3, Pankaj POC (test 16 mmol/L 22-26 L code = 40130120) TCO2 POC (test code = 17 mmol/L 21-32 L [id number]) Base Deficit, Pankaj POC -9 (test code = 71754114) Sample Type (test code IVEN Physi erik Notified = [id number]) % Sat, Pankaj POC (test 77 % code = 49022590) Lab Interpretation Abnormal (test code = 11419-5) [facility] VBG POC docked [id number] 11:16:15 Test Item Value Reference Range Interpretation Comments pH, Pankaj POC (test code 7.32 7.33-7.43 L = [id number]) pCO2,Pankaj POC (test code 31.0 See_Comment L [Au tomated = 06953243) message] The sy stem which generated this result transmitted reference range : 38 - 50 mmHg. The reference range was not used to interpret this result as normal/abnormal . PO2, Venous POC (BKR) 44 See_Comment L [Auto mated (test code = 26098489) Moozeya ge] The system which generated this result transmitted reference range : 50 - 75 mm Hg. The reference range was not used to interpret this result as normal/abnormal . Ionized Calcium POC 1.24 mmol/L 1.15-1.29 (test code = 96373274) HCO3, Pankaj POC (test 16 mmol/L 22-26 L code = 69532098) TCO2 POC (test code = 17 mmol/L 21-32 L 87539675) Base Deficit, Pankaj POC -9 (test code = 25432914) Sample Type (test code IVEN Physi erik Notified = 73975655) % Sat, Pankaj POC (test 77 % code = 94927409) Lab Interpretation Abnormal (test code = 32641-7) [facility]BG POC docked [id number] 11:16:15 Test Item Value Reference Range Interpretation Comments pH, Pankaj POC (test code 7.32 7.33-7.43 L = 88235882) pCO2,Pankaj POC (test code 31.0 See_Comment L [Au tomated = 44123742) message] The sy stem which generated this result transmitted reference range : 38 - 50 mmHg. The reference range was not used to interpret this result as normal/abnormal . PO2, Venous POC (BKR) 44 See_Comment L [Auto mated (test code = 02274401) Moozeya ge] The system which generated this result transmitted reference range : 50 - 75 mm Hg. The reference range was not used to interpret this result as normal/abnormal . Ionized Calcium POC 1.24 mmol/L 1.15-1.29 (test code = 11511123) HCO3, Pankaj POC (test 16 mmol/L 22-26 L code = 69801425) TCO2 POC (test code = 17 mmol/L 21-32 L 65659959) Base Deficit, Pankaj POC -9 (test code = 92045387) Sample Type (test code IVEN Physi erik Notified = 90689543) % Sat, Pankaj POC (test 77 % code = 19394795) Lab Interpretation Abnormal (test code = 34759-1) [facility] POC docked [id number] 11:16:15 Test Item Value Reference Range Interpretation Comments pH, Pankaj POC (test code 7.32 7.33-7.43 L = 47228785) pCO2,Pankaj POC (test code 31.0 See_Comment L [Au tomated = 01768325) message] The sy stem which generated this result transmitted reference range : 38 - 50 mmHg. The reference range was not used to interpret this result as normal/abnormal . PO2, Venous POC (BKR) 44 See_Comment L [Auto mated (test code = 12279220) messa ge] The system which generated this result transmitted reference range : 50 - 75 mm Hg. The reference range was not used to interpret this result as normal/abnormal . Ionized Calcium POC 1.24 mmol/L 1.15-1.29 (test code = 43536938) HCO3, Pankaj POC (test 16 mmol/L 22-26 L code = 18883194) TCO2 POC (test code = 17 mmol/L 21-32 L 07620903) Base Deficit, Pankaj POC -9 (test code = 41165278) Sample Type (test code STEPAN valencia Notified = 43124993) % Sat, Pankaj POC (test 77 % code = 55698718) Lab Interpretation Abnormal (test code = 57495-3) [facility] POC docked [id number] 11:16:15 Test Item Value Reference Range Interpretation Comments pH, Pankaj POC (test code 7.32 7.33-7.43 L = 16844354) pCO2,Pankaj POC (test code 31.0 See_Comment L [Au tomated = 38331908) message] The sy stem which generated this result transmitted reference range : 38 - 50 mmHg. The reference range was not used to interpret this result as normal/abnormal . PO2, Venous POC (BKR) 44 See_Comment L [Auto mated (test code = 77387590) messa ge] The system which generated this result transmitted reference range : 50 - 75 mm Hg. The reference range was not used to interpret this result as normal/abnormal . Ionized Calcium POC 1.24 mmol/L 1.15-1.29 (test code = 75834601) HCO3, Pankaj POC (test 16 mmol/L 22-26 L code = 57779310) TCO2 POC (test code = 17 mmol/L 21-32 L 72069168) Base Deficit, Pankaj POC -9 (test code = 08302797) Sample Type (test code STEPAN valencia Notified = 95396122) % Sat, Pankaj POC (test 77 % code = 80056784) Lab Interpretation Abnormal (test code = 41005-3) [facility] POC docked [id number] 11:16:15 Test Item Value Reference Range Interpretation Comments pH, Pankaj POC (test code 7.32 7.33-7.43 L = 71873332) pCO2,Pankaj POC (test code 31.0 See_Comment L [Au tomated = 79029793) message] The sy stem which generated this result transmitted reference range : 38 - 50 mmHg. The reference range was not used to interpret this result as normal/abnormal . PO2, Venous POC (BKR) 44 See_Comment L [Auto mated (test code = 73016613) Moozeya ge] The system which generated this result transmitted reference range : 50 - 75 mm Hg. The reference range was not used to interpret this result as normal/abnormal . Ionized Calcium POC 1.24 mmol/L 1.15-1.29 (test code = 57008569) HCO3, Pankaj POC (test 16 mmol/L 22-26 L code = 02475766) TCO2 POC (test code = 17 mmol/L 21-32 L 06166120) Base Deficit, Pankaj POC -9 (test code = 14874552) Sample Type (test code STEPAN valencia Notified = 17358730) % Sat, Pankaj POC (test 77 % code = 89890306) Lab Interpretation Abnormal (test code = 41387-4) [facility] POC docked [id number] 11:16:15 Test Item Value Reference Range Interpretation Comments pH, Pankaj POC (test code 7.32 7.33-7.43 L = 21995725) pCO2,Pankaj POC (test code 31.0 See_Comment L [Au tomated = 21598652) message] The sy stem which generated this result transmitted reference range : 38 - 50 mmHg. The reference range was not used to interpret this result as normal/abnormal . PO2, Venous POC (BKR) 44 See_Comment L [Auto mated (test code = 96971487) Moozeya ge] The system which generated this result transmitted reference range : 50 - 75 mm Hg. The reference range was not used to interpret this result as normal/abnormal . Ionized Calcium POC 1.24 mmol/L 1.15-1.29 (test code = 07089412) HCO3, Pankaj POC (test 16 mmol/L 22-26 L code = 01586252) TCO2 POC (test code = 17 mmol/L 21-32 L 54200219) Base Deficit, Pankaj POC -9 (test code = 80001802) Sample Type (test code IVEN Physi erik Notified = 77488461) % Sat, Pankaj POC (test 77 % code = 24973119) Lab Interpretation Abnormal (test code = 59809-4) [facility] POC docked [id number] 11:16:15 Test Item Value Reference Range Interpretation Comments pH, Pankaj POC (test code 7.32 7.33-7.43 L = 36715964) pCO2,Pankaj POC (test code 31.0 See_Comment L [Au tomated = 68625341) message] The sy stem which generated this result transmitted reference range : 38 - 50 mmHg. The reference range was not used to interpret this result as normal/abnormal . PO2, Venous POC (BKR) 44 See_Comment L [Auto mated (test code = 20875339) Moozeya ge] The system which generated this result transmitted reference range : 50 - 75 mm Hg. The reference range was not used to interpret this result as normal/abnormal . Ionized Calcium POC 1.24 mmol/L 1.15-1.29 (test code = 98077302) HCO3, Pankaj POC (test 16 mmol/L 22-26 L code = 64374314) TCO2 POC (test code = 17 mmol/L 21-32 L 29863838) Base Deficit, Pankaj POC -9 (test code = 33507400) Sample Type (test code IVEN Physi erik Notified = 83602206) % Sat, Pankaj POC (test 77 % code = 90336094) Lab Interpretation Abnormal (test code = 65182-0) [facility] POC docked [id number] 11:16:15 Test Item Value Reference Range Interpretation Comments pH, Pankaj POC (test code 7.32 7.33-7.43 L = 86010576) pCO2,Pankaj POC (test code 31.0 See_Comment L [Au tomated = 76320828) message] The sy stem which generated this result transmitted reference range : 38 - 50 mmHg. The reference range was not used to interpret this result as normal/abnormal . PO2, Venous POC (BKR) 44 See_Comment L [Auto mated (test code = 27044137) messa ge] The system which generated this result transmitted reference range : 50 - 75 mm Hg. The reference range was not used to interpret this result as normal/abnormal . Ionized Calcium POC 1.24 mmol/L 1.15-1.29 (test code = 78808570) HCO3, Pankaj POC (test 16 mmol/L 22-26 L code = 60056779) TCO2 POC (test code = 17 mmol/L 21-32 L 45151555) Base Deficit, Pankaj POC -9 (test code = 09833179) Sample Type (test code IVFLORENCE Physi erik Notified = 85947360) % Sat, Pankaj POC (test 77 % code = 89609076) Lab Interpretation Abnormal (test code = 26859-9) [facility] POC docked [id number] 11:16:15 Test Item Value Reference Range Interpretation Comments pH, Pankaj POC (test code 7.32 7.33-7.43 L = 21945012) pCO2,Pankaj POC (test code 31.0 See_Comment L [Au tomated = 08791645) message] The sy stem which generated this result transmitted reference range : 38 - 50 mmHg. The reference range was not used to interpret this result as normal/abnormal . PO2, Venous POC (BKR) 44 See_Comment L [Auto mated (test code = 40379530) messa ge] The system which generated this result transmitted reference range : 50 - 75 mm Hg. The reference range was not used to interpret this result as normal/abnormal . Ionized Calcium POC 1.24 mmol/L 1.15-1.29 (test code = 83793571) HCO3, Pankaj POC (test 16 mmol/L 22-26 L code = 94037656) TCO2 POC (test code = 17 mmol/L 21-32 L 95835187) Base Deficit, Pankaj POC -9 (test code = 38248656) Sample Type (test code STEPAN valencia Notified = 86211566) % Sat, Pankaj POC (test 77 % code = 77038063) Lab Interpretation Abnormal (test code = 76139-6) [facility] POC docked [id number] 11:16:15 Test Item Value Reference Range Interpretation Comments pH, Pankaj POC (test code 7.32 7.33-7.43 L = 10147053) pCO2,Pankaj POC (test code 31.0 See_Comment L [Au tomated = 00382347) message] The sy stem which generated this result transmitted reference range : 38 - 50 mmHg. The reference range was not used to interpret this result as normal/abnormal . PO2, Venous POC (BKR) 44 See_Comment L [Auto mated (test code = 79525922) messa ge] The system which generated this result transmitted reference range : 50 - 75 mm Hg. The reference range was not used to interpret this result as normal/abnormal . Ionized Calcium POC 1.24 mmol/L 1.15-1.29 (test code = 33700785) HCO3, Pankaj POC (test 16 mmol/L 22-26 L code = 64551256) TCO2 POC (test code = 17 mmol/L 21-32 L 69234721) Base Deficit, Pankaj POC -9 (test code = 44877748) Sample Type (test code STEPAN valencia Notified = 12112915) % Sat, Pankaj POC (test 77 % code = 74302023) Lab Interpretation Abnormal (test code = 70736-5) [facility] POC docked [id number] 11:16:15 Test Item Value Reference Range Interpretation Comments pH, Pankaj POC (test code 7.32 7.33-7.43 L = 05335073) pCO2,Pankaj POC (test code 31.0 See_Comment L [Au tomated = 06536890) message] The sy stem which generated this result transmitted reference range : 38 - 50 mmHg. The reference range was not used to interpret this result as normal/abnormal . PO2, Venous POC (BKR) 44 See_Comment L [Auto mated (test code = 38751225) messa ge] The system which generated this result transmitted reference range : 50 - 75 mm Hg. The reference range was not used to interpret this result as normal/abnormal . Ionized Calcium POC 1.24 mmol/L 1.15-1.29 (test code = 17867761) HCO3, Pankaj POC (test 16 mmol/L 22-26 L code = 86029235) TCO2 POC (test code = 17 mmol/L 21-32 L 67027053) Base Deficit, Pankaj POC -9 (test code = 09848862) Sample Type (test code IVFLORENCE Physi erik Notified = 31912145) % Sat, Pankaj POC (test 77 % code = 26694467) Lab Interpretation Abnormal (test code = 22130-5) [facility] POC docked [id number] 11:16:15 Test Item Value Reference Range Interpretation Comments pH, Pankaj POC (test code 7.32 7.33-7.43 L = 72886598) pCO2,Pankaj POC (test code 31.0 See_Comment L [Au tomated = 49479413) message] The sy stem which generated this result transmitted reference range : 38 - 50 mmHg. The reference range was not used to interpret this result as normal/abnormal . PO2, Venous POC (BKR) 44 See_Comment L [Auto mated (test code = 02549531) [employer] ge] The system which generated this result transmitted reference range : 50 - 75 mm Hg. The reference range was not used to interpret this result as normal/abnormal . Ionized Calcium POC 1.24 mmol/L 1.15-1.29 (test code = 39371289) HCO3, Pankaj POC (test 16 mmol/L 22-26 L code = 66438728) TCO2 POC (test code = 17 mmol/L 21-32 L 63010449) Base Deficit, Pankaj POC -9 (test code = 60980533) Sample Type (test code IVFLORENCE Physi erik Notified = 31679328) % Sat, Pankaj POC (test 77 % code = 38014116) Lab Interpretation Abnormal (test code = 67619-3) [facility] POC docked [id number] 11:16:15 Test Item Value Reference Range Interpretation Comments pH, Pankaj POC (test code 7.32 7.33-7.43 L = 23494291) pCO2,Pankaj POC (test code 31.0 See_Comment L [Au tomated = 09921153) message] The sy stem which generated this result transmitted reference range : 38 - 50 mmHg. The reference range was not used to interpret this result as normal/abnormal . PO2, Venous POC (BKR) 44 See_Comment L [Auto mated (test code = 84063247) messa ge] The system which generated this result transmitted reference range : 50 - 75 mm Hg. The reference range was not used to interpret this result as normal/abnormal . Ionized Calcium POC 1.24 mmol/L 1.15-1.29 (test code = 48542689) HCO3, Pankaj POC (test 16 mmol/L 22-26 L code = 94962626) TCO2 POC (test code = 17 mmol/L 21-32 L 37823294) Base Deficit, Pankaj POC -9 (test code = 66341325) Sample Type (test code IVEN Physi erik Notified = 13146917) % Sat, Pankaj POC (test 77 % code = 17884815) Lab Interpretation Abnormal (test code = 79090-9) [facility] POC docked [id number] 11:16:15 Test Item Value Reference Range Interpretation Comments pH, Pankaj POC (test code 7.32 7.33-7.43 L = 39104585) pCO2,Pankaj POC (test code 31.0 See_Comment L [Au tomated = 02183132) message] The sy stem which generated this result transmitted reference range : 38 - 50 mmHg. The reference range was not used to interpret this result as normal/abnormal . PO2, Venous POC (BKR) 44 See_Comment L [Auto mated (test code = 36996107) Moozeya ge] The system which generated this result transmitted reference range : 50 - 75 mm Hg. The reference range was not used to interpret this result as normal/abnormal . Ionized Calcium POC 1.24 mmol/L 1.15-1.29 (test code = 44723232) HCO3, Pankaj POC (test 16 mmol/L 22-26 L code = 50065302) TCO2 POC (test code = 17 mmol/L 21-32 L 87446011) Base Deficit, Pankaj POC -9 (test code = 78556439) Sample Type (test code IVEN Physi erik Notified = 21102567) % Sat, Pankaj POC (test 77 % code = 08763436) Lab Interpretation Abnormal (test code = 85859-1) [facility] POC docked [id number] 11:16:15 Test Item Value Reference Range Interpretation Comments pH, Pankaj POC (test code 7.32 7.33-7.43 L = 95122582) pCO2,Pankaj POC (test code 31.0 See_Comment L [Au tomated = 04723085) message] The sy stem which generated this result transmitted reference range : 38 - 50 mmHg. The reference range was not used to interpret this result as normal/abnormal . PO2, Venous POC (BKR) 44 See_Comment L [Auto mated (test code = 70795634) Moozeya Choosly] The system which generated this result transmitted reference range : 50 - 75 mm Hg. The reference range was not used to interpret this result as normal/abnormal . Ionized Calcium POC 1.24 mmol/L 1.15-1.29 (test code = 53862439) HCO3, Pankaj POC (test 16 mmol/L 22-26 L code = 09471864) TCO2 POC (test code = 17 mmol/L 21-32 L 85414863) Base Deficit, Pankaj POC -9 (test code = 86890352) Sample Type (test code STEPAN Physi erik Notified = 31148443) % Sat, Pankaj POC (test 77 % code = 17994553) Lab Interpretation Abnormal (test code = 31781-0) [facility] POC docked [id number] 11:16:15 Test Item Value Reference Range Interpretation Comments pH, Pankaj POC (test code 7.32 7.33-7.43 L = 82897250) pCO2,Pankaj POC (test code 31.0 See_Comment L [Au tomated = 07646325) message] The sy stem which generated this result transmitted reference range : 38 - 50 mmHg. The reference range was not used to interpret this result as normal/abnormal . PO2, Venous POC (BKR) 44 See_Comment L [Auto mated (test code = 62769558) Moozeya ge] The system which generated this result transmitted reference range : 50 - 75 mm Hg. The reference range was not used to interpret this result as normal/abnormal . Ionized Calcium POC 1.24 mmol/L 1.15-1.29 (test code = 62746031) HCO3, Pankaj POC (test 16 mmol/L 22-26 L code = 55063248) TCO2 POC (test code = 17 mmol/L 21-32 L 83231268) Base Deficit, Pankaj POC -9 (test code = 69836902) Sample Type (test code STEPAN valencia Notified = 52381265) % Sat, Pankaj POC (test 77 % code = 62984446) Lab Interpretation Abnormal (test code = 83500-4) [place] [address] LEAD [id number] 20:59:5612 LEAD EKG FOR [facility] Test Date: 0920-32-06Lre Name: DORA JOSEPH Department: 5520Patient ID: [id number] Room: Gender: Environmental Consultant: [id number]: 1970 Requested By: TANJA Garza Number: [id number] Reading MD: Chiara Calles MeasurementsIntervals [place] Rate: 75 P: 84PR: 153 QRS: 67QRSD: 104 T: 77QT: 344 QTc: 373 Interpretive StatementsSINUS RHYTHMPOSSIBLE RIGHT VENTRICULAR CONDUCTION DELAY [RSR (QR) IN V1/V2]Electronically Signed On 01-09-2022 8:27:19 CDT by [place]ara [place] [address] LEAD [id number] 20:59:5612 LEAD EKG FOR [facility] Test Date: 7210-00-55Jfk Name: DORA JOSEPH Department: 5520Patient ID: [id number] Room: Gender: Environmental Consultant: [id number]: 1970 Requested By: TANJA Garza Number: [id number] Reading MD: Chiara Calles MeasurementsIntervals [place] Rate: 75 P: 84PR: 153 QRS: 67QRSD: 104 T: 77QT: 344 QTc: 373 Interpretive StatementsSINUS RHYTHMPOSSIBLE RIGHT VENT RICULAR CONDUCTION DELAY [RSR (QR) IN V1/V2]Electronically Signed On 01-09-2022 8:27:19 CDT by [facility] CloudrobertDailyBurnbakariInnoPadHeather [place] [address] LEAD [id number] 20:59:5612 LEAD EKG FOR [facility] Test Date: 1010-47-06Kiq Name: DORA PAEZRY Department: 5520Patient ID: [id number] Room: Gender: M Environmental Consultant: [id number]: 1970 Requested By: TANJA Garza Number: [id number] Reading MD: Chiara Calles MeasurementsIntervals [place] Rate: 75 P: 84PR: 153 QRS: 67QRSD: 104 T: 77QT: 344 QTc: 373 Interpretive StatementsSINUS RHYTHMPOSSIBLE RIGHT VENTRICULAR CONDUCTION DELAY [RSR (QR) IN V1/V2]Electronically Signed On 01-09-2022 8:27:19 CDT by Chiara EsquedaJimdo12 LEAD [id number] 20:59:5612 LEAD EKG FOR [facility] Test Date: 4886-37-10Kic Name: DORA PAEZRY Department: 5520Patient ID: [id number] Room: Gender: M Environmental Consultant: [id number]: 1970 Requested By: TANJA Garza Number: [id number] Reading MD: Chiara Calles MeasurementsIntervals [place] Rate: 75 P: 84P R: 153 QRS: 67QRSD: 104 T: 77QT: 344 QTc: 373 Interpretive StatementsSINUS RHYTHMPOSSIBLE RIGHT VENTRICULAR CONDUCTION DELAY [RSR (QR) IN V1/V2]Electronically Signed On 01-09-2022 8:27:19 CDT by Chiara EsquedaJimdo12 LEAD [id number] 20:59:5612 LEAD EKG FOR [facility] Test Date: 4220-27-50Evj Name: DORA JOSEPH Department: 5520Patient ID: [id number] Room: Gender: M Environmental Consultant: [id number]: 1970 Requested By: TANJA Garza Number: [id number] Reading MD: Chiara Calles MeasurementsIntervals [place] Rate: 75 P: 84PR: 153 QRS: 67QRSD: 104 T: 77QT: 344 QTc: 373 Interpretive StatementsSINUS RHYTHMPOSSIBLE RIGHT VENTRICULAR CONDUCTION DELAY [RSR (QR) IN V1/V2]Electronically Signed On 01-09-2022 8:27:19 CDT by Chiara DailyBurnbakariInnoPadCompaJimdo12 LEAD [id number] 20:59:5612 LEAD EKG FOR [facility] Test Date: 9090-47-67Woa Name: DORA PAEZRY Department: 5520Patient ID: [id number] Room: Gender: M Environmental Consultant: [id number]: 1970 Requested By: TANJA Garza Number: [id number] Reading MD: Chiara Calles MeasurementsIntervals [place] Rate: 75 P: 84PR: 153 QRS: 67QRSD: 104 T: 77QT: 344 QTc: 373 Interpretive StatementsSINUS RHYTHMPOSSIBLE RIGHT VENT RICULAR CONDUCTION DELAY [RSR (QR) IN V1/V2]Electronically Signed On 01-09-2022 8:27:19 CDT by [facility] LEAD [id number] 20:59:5612 LEAD EKG FOR [facility] Test Date: 9206-73-95Lak Name: DORA PAEZRY Department: 5520Patient ID: [id number] Room: Gender: M Environmental Consultant: [id number]: 1970 Requested By: TANJA Garza Number: [id number] Reading MD: Chiara Calles MeasurementsIntervals [place] Rate: 75 P: 84PR: 153 QRS: 67QRSD: 104 T: 77QT: 344 QTc: 373 Interpretive StatementsSINUS RHYTHMPOSSIBLE RIGHT VENTRICULAR CONDUCTION DELAY [RSR (QR) IN V1/V2]Electronically Signed On 01-09-2022 8:27:19 CDT by [facility]Gr[facility] AdeuzaMer[facility] Emergency DepartmentJimdo12 LEAD [id number] 20:59:5612 LEAD EKG FOR [facility] Test Date: 9250-00-15Vlb Name: DORA JOSEPH Department: 5520Patient ID: [id number] Room: Gender: M Environmental Consultant: [id number]: 1970 Requested By: TANJA Garza Number: [id number] Reading MD: Chiara Calles MeasurementsIntervals [place] Rate: 75 P: 84P R: 153 QRS: 67QRSD: 104 T: 77QT: 344 QTc: 373 Interpretive StatementsSINUS RHYTHMPOSSIBLE RIGHT VENTRICULAR CONDUCTION DELAY [RSR (QR) IN V1/V2]Electronically Signed On 01-09-2022 8:27:19 CDT by [facility]als[facility].itMercy Emergency [email or web address] Ygkkel24 LEAD [id number] 20:59:5612 LEAD EKG FOR [facility] Test Date: 1639-60-07Mqm Name: DORA JOSEPH Department: 5520Patient ID: [id number] Room: Gender: M Environmental Consultant: [id number]: 1970 Requested By: TANJA Garza Number: [id number] Reading MD: Chiara Calles MeasurementsIntervals [place] Rate: 75 P: 84PR: 153 QRS: 67QRSD: 104 T: 77QT: 344 QTc: 373 Interpretive StatementsSINUS RHYTHMPOSSIBLE RIGHT VENTRICULAR CONDUCTION DELAY [RSR (QR) IN V1/V2]Electronically Signed On 01-09-2022 8:27:19 CDT by [facility] sharing.itMercy Emergency DepartmentJimdo12 LEAD [id number] 20:59:5612 LEAD EKG FOR [facility] Test Date: 7239-61-87Vja Name: DORA PAEZRY Department: 5520Patient ID: [id number] Room: Gender: M Environmental Consultant: [id number]: 1970 Requested By: TANJA Garza Number: [id number] Reading MD: Chiara Calles MeasurementsIntervals [place] Rate: 75 P: 84PR: 153 QRS: 67QRSD: 104 T: 77QT: 344 QTc: 373 Interpretive StatementsSINUS RHYTHMPOSSIBLE RIGHT VENT RICULAR CONDUCTION DELAY [RSR (QR) IN V1/V2]Electronically Signed On 01-09-2022 8:27:19 CDT by [facility]als[facility].itMer[facility] Emergency [email or web address] Gfokqh85 LEAD [id number] 20:59:5612 LEAD EKG FOR [facility] Test Date: 9560-53-50Msz Name: DORA PAEZRY Department: 5520Patient ID: [id number] Room: Gender: M Environmental Consultant: [id number]: 1970 Requested By: TANJA Garza Number: [id number] Reading MD: Chiara Calles MeasurementsIntervals [place] Rate: 75 P: 84PR: 153 QRS: 67QRSD: 104 T: 77QT: 344 QTc: 373 Interpretive StatementsSINUS RHYTHMPOSSIBLE RIGHT VENTRICULAR CONDUCTION DELAY [RSR (QR) IN V1/V2]Electronically Signed On 01-09-2022 8:27:19 CDT by [facility] LEAD [id number] 20:59:5612 LEAD EKG FOR [facility] Test Date: 3346-38-76Oxt Name: DORA JOSEPH Department: 5520Patient ID: [id number] Room: Gender: M Environmental Consultant: [id number]: 1970 Requested By: TANJA Garza Number: [id number] Reading MD: Chiara Calles MeasurementsIntervals [place] Rate: 75 P: 84PR: 153 QRS: 67QRSD: 104 T: 77QT: 344 QTc: 373 Interpretive StatementsSINUS RHYTHMPOSSIBLE RIGHT VENTRICULAR CONDUCTION DELAY [RSR (QR) IN V1/V2]Electronically Signed On 01-09-2022 8:27:19 CDT by [facility] LEAD [id number] 20:59:5612 LEAD EKG FOR [facility] Test Date: 3651-73-10Zyo Name: DORA JOSEPH Department: 5520Patient ID: [id number] Room: Gender: M Environmental Consultant: [id number]: 1970 Requested By: TANJA Garza Number: [id number] Reading MD: Chiara Calles MeasurementsIntervals [place] Rate: 75 P: 84PR: 153 QRS: 67QRSD: 104 T: 77QT: 344 QTc: 373 Interpretive StatementsSINUS RHYTHMPOSSIBLE RIGHT VENTRICULAR CONDUCTION DELAY [RSR (QR) IN V1/V2]Electronically Signed On 01-09-2022 8:27:19 CDT by US PREVENTIVE MEDICINE12 LEAD [id number] 20:59:5612 LEAD EKG FOR [facility] Test Date: 6801-16-30Lhw Name: DORA JOSEPH Department: 5520Patient ID: [id number] Room: Gender: M Environmental Consultant: [id number]: 1970 Requested By: TANJA Garza Number: [id number] Reading MD: Chiara Calles MeasurementsIntervals [place] Rate: 75 P: 84PR: 153 QRS: 67QRSD: 104 T: 77QT: 344 QTc: 373 Interpretive StatementsSINUS RHYTHMPOSSIBLE RIGHT VENT RICULAR CONDUCTION DELAY [RSR (QR) IN V1/V2]Electronically Signed On 01-09-2022 8:27:19 CDT by US PREVENTIVE MEDICINE12 LEAD [id number] 20:59:5612 LEAD EKG FOR [facility] Test Date: 1966-51-11Gdz Name: DORA JOSEPH Department: 5520Patient ID: [id number] Room: Gender: M Environmental Consultant: [id number]: 1970 Requested By: TANJA Garza Number: [id number] Reading MD: Chiara Calles MeasurementsIntervals [place] Rate: 75 P: 84PR: 153 QRS: 67QRSD: 104 T: 77QT: 344 QTc: 373 Interpretive StatementsSINUS RHYTHMPOSSIBLE RIGHT VENTRICULAR CONDUCTION DELAY [RSR (QR) IN V1/V2]Electronically Signed On 01-09-2022 8:27:19 CDT by US PREVENTIVE MEDICINE12 LEAD [id number] 20:59:5612 LEAD EKG FOR [facility] Test Date: 5046-56-96Pbr Name: DORA JOSEPH Department: 5520Patient ID: [id number] Room: Gender: M Environmental Consultant: [id number]: 1970 Requested By: TANJA Garza Number: [id number] Reading MD: Chiara Calles MeasurementsIntervals [place] Rate: 75 P: 84PR : 153 QRS: 67QRSD: 104 T: 77QT: 344 QTc: 373 Interpretive StatementsSINUS RHYTHMPOSSIBLE RIGHT VENTRICULAR CONDUCTION DELAY [RSR (QR) IN V1/V2]Electronically Signed On 01-09-2022 8:27:19 CDT by Rayspan12 LEAD [id number] 20:59:5612 LEAD EKG FOR [facility] Test Date: 9804-54-39Yuu Name: DORA JOSEPH Department: 5520Patient ID: [id number] Room: Gender: M Environmental Consultant: [id number]: 1970 Requested By: TANJA Garza Number: [id number] Reading MD: Chiara Calles MeasurementsIntervals [place] Rate: 75 P: 84PR: 153 QRS: 67QRSD: 104 T: 77QT: 344 QTc: 373 Interpretive StatementsSINUS RHYTHMPOSSIBLE RIGHT VENTRICULAR CONDUCTION DELAY [RSR (QR) IN V1/V2]Electronically Signed On 01-09-2022 8:27:19 CDT by [employer]12 LEAD [id number] 20:59:5612 LEAD EKG FOR [facility] Test Date: 4087-69-18Bea Name: DORA PAEZRY Department: 5520Patient ID: [id number] Room: Gender: M Environmental Consultant: [id number]: 1970 Requested By: TANJA Garza Number: [id number] Reading MD: Chiara Calles MeasurementsIntervals [place] Rate: 75 P: 84PR: 153 QRS: 67QRSD: 104 T: 77QT: 344 QTc: 373 Interpretive StatementsSINUS RHYTHMPOSSIBLE RIGHT VENT RICULAR CONDUCTION DELAY [RSR (QR) IN V1/V2]Electronically Signed On 01-09-2022 8:27:19 CDT by ChiaraDailyBurnbakariINgrooves12 LEAD [id number] 20:59:5612 LEAD EKG FOR [facility] Test Date: 2153-08-11Qlp Name: DORA JOSEPH Department: 5520Patient ID: [id number] Room: Gender: M Environmental Consultant: [id number]: 1970 Requested By: TANJA Garza Number: [id number] Reading MD: Chiara Calles MeasurementsIntervals [place] Rate: 75 P: 84PR: 153 QRS: 67QRSD: 104 T: 77QT: 344 QTc: 373 Interpretive StatementsSINUS RHYTHMPOSSIBLE RIGHT VENTRICULAR CONDUCTION DELAY [RSR (QR) IN V1/V2]Electronically Signed On 01-09-2022 8:27:19 CDT by [facility] [place] [address] LEAD [id number] 20:59:5612 LEAD EKG FOR [facility] Test Date: 5525-40-27Qvx Name: DORA JOSEPH Department: 5520Patient ID: [id number] Room: Gender: M Environmental Consultant: [id number]: 1970 Requested By: TANJA Garza Number: [id number] Reading MD: Chiara Calles MeasurementsIntervals [place] Rate: 75 P: 84P R: 153 QRS: 67QRSD: 104 T: 77QT: 344 QTc: 373 Interpretive StatementsSINUS RHYTHMPOSSIBLE RIGHT VENTRICULAR CONDUCTION DELAY [RSR (QR) IN V1/V2]Electronically Signed On 01-09-2022 8:27:19 CDT by [facility] DailyBurnbakariInnoPadHeather [place] [address] LEAD [id number] 20:59:5612 LEAD EKG FOR [facility] Test Date: 8339-18-26Cuz Name: DORA JOSEPH Department: 5520Patient ID: [id number] Room: Gender: M Environmental Consultant: [id number]: 1970 Requested By: TANJA Garza Number: [id number] Reading MD: Chiara Calles MeasurementsIntervals [place] Rate: 75 P: 84PR: 153 QRS: 67QRSD: 104 T: 77QT: 344 QTc: 373 Interpretive StatementsSINUS RHYTHMPOSSIBLE RIGHT VENTRICULAR CONDUCTION DELAY [RSR (QR) IN V1/V2]Electronically Signed On 01-09-2022 8:27:19 CDT by [facility] DailyBurnkingman regional medical centerInnoPadHeather Ville [address] LEAD [id number] 20:59:5612 LEAD EKG FOR [facility] Test Date: 0809-45-06Eba Name: DORA PAEZRY Department: 5520Patient ID: [id number] Room: Gender: M Environmental Consultant: [id number]: 1970 Requested By: TANJA Garza Number: [id number] Reading MD: Chiara Calles MeasurementsIntervals [place] Rate: 75 P: 84PR: 153 QRS: 67QRSD: 104 T: 77QT: 344 QTc: 373 Interpretive StatementsSINUS RHYTHMPOSSIBLE RIGHT VENT RICULAR CONDUCTION DELAY [RSR (QR) IN V1/V2]Electronically Signed On 01-09-2022 8:27:19 CDT by [facility] HospitalArclight Media TechnologyHeather Ville [address] LEAD [id number] 20:59:5612 LEAD EKG FOR [facility] Test Date: 5873-57-09Vxh Name: DORA JOSEPH Department: 5520Patient ID: [id number] Room: Gender: M Environmental Consultant: [id number]: 1970 Requested By: TANJA Garza Number: [id number] Reading MD: Chiara Calles MeasurementsIntervals [place] Rate: 75 P: 84PR: 153 QRS: 67QRSD: 104 T: 77QT: 344 QTc: 373 Interpretive StatementsSINUS RHYTHMPOSSIBLE RIGHT VENTRICULAR CONDUCTION DELAY [RSR (QR) IN V1/V2]Electronically Signed On 01-09-2022 8:27:19 CDT by [facility] W/AUTO [id number] 23:52:00 Test Item Value Reference Range Interpretation [...] = MX#) 0.8 k/mm3 0.1-0.8 N LIVER [id number] 20:04:00 Test Item Value Reference Range Interpretation [...] 67 UNITS/L 25-125 N LYNDSEY) BASIC METABOLIC [id number] 19:54:00 Test Item Value Reference Range Interpretation [...] POCGLU) 81 MG/DL - CT ABD PELVIS W/[id number] 00:00:00 [facility] SHANA LAKEName: MARIA ISABEL JOSEPH : 1970 Sex: M Name: MARIA ISABEL JOSEPH FSED : 1970 Age/S: 51 / M [address] [facility] Unit #: [id number] Loc: [place] [address] Phys: Raffaele Levi MD Acct: [id number] Dis Date: Status: PRE ER PHONE #: Exam Date: 09/23/20211999 FAX #: Reason: RUQ PAIN, VOMITING EXAMS: CPT CODE: [id number] CT ABD PELVIS W/CONT 25334 PROCEDURE INFORMATION: Exam: CT Abdomen And Pelvis [...] : 1970 Age/S: 51 / M [address] [facility] Unit #: [id number] Loc: [place] [address] Phys: Raffaele Levi MD Acct: [id number] Dis Date: Status: PRE ER PHONE #: Exam Date: 09/23/20211999 FAX #: Reason: RUQ PAIN, VOMITING EXAMS: CPT CODE: [id number] CT ABD PELVIS W/CONT 71006 <Continued> abdominal small bowel loops may relate [...] (2049) PAGE 2 Signed Report COMPREHENSIVE METABOLIC [id number] 11:51:00 Test Item Value Reference Range Interpretation [...] Units/L 50.0-136.0 N code = ALKP) PROTHROMBIN [id number] 11:41:00 Test Item Value Reference Range Interpretation Comments PROTHROMBIN TIME 10.9 SECONDS 9.9-12.8 N PATIENT (test code = PTP) INTERNATIONAL NORMAL 0.9 0.89-1.14 N THE INR IS TO BE USED RATIO (test code = ONLY FOR MONITORING INR) ORAL ANTICOAGULANTTH ERAPY. 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 [facility] BASIC METABOLIC [id number] 05:21:00 Test Item Value Reference Range Interpretation [...] (test code = POCGLU) 92 MG/DL GLUCOSE [id number] 05:19:00 Test Item Value Reference Range Interpretation Comments GLUCOSE BEDSIDE (test 51 MG/DL 70-110 L Perfor med by certified code = GLUBED) 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 [facility] CBC W/AUTO [id number] 14:00:00 Test Item Value Reference Range Interpretation [...] MX#) 0.2 k/mm3 0.1-0.8 N CBC W/AUTO [id number] 00:07:00 Test Item Value Reference Range Interpretation [...] = LY#) 2.4 K/uL 1.0-3.8 N LIVER [id number] 16:14:00 Test Item Value Reference Range Interpretation [...] 65 UNITS/L 25-125 N LYNDSEY) BASIC METABOLIC [id number] 16:07:00 Test Item Value Reference Range Interpretation [...] POCGLU) 96 MG/DL - XR CHEST 1 [id number] 00:00[facility]00 [facility] 1970 Sex: MFAX: Steve Urias MD [phone] [place] PRE Name: DORA JOSEPH FSED : 1970 Age/S: 51/M [address] [facility]. Unit #: [id number] Loc: [place] [address] Phys: Steve Urias MD Acct: [id number] Dis Date: Status: PRE ER PHONE #: Exam Date: 06/27/2021 6420 FAX #: Reason: Abdominal Pain EXAMS: CPT CODE: [id number] XR CHEST 1 V 91373 PROCEDURE INFORMATION: Exam: XR Chest Exam date [...] Technologist: Yecenia Carbajal RT(R)(CT) Trnscrd Date/Time/By: 06/27/2021 (9279) : By: GarettJG42 Orig Print D/T: S: 06/27/2021 (4621) PAGE 1 Signed Report- CT ABD PELVIS W/[id number] 00:00:00 [facility] SHANA LAKEName: DORA JOSEPH : 1970 Sex: MName: DORA JOSEPH FSED : 1970 Age/S: 51 / M [address] [facility] Unit #: [id number] Loc: [place] [address] Phys: Steve Urias MD Acct: [id number] Dis Date: Status: REG ER PHONE #: Exam Date: 06/27/2021 5505 FAX #: Reason: pain in region of colostomy EXAMS: CPT CODE: [id number] CT ABD PELVIS W/CONT 75450 PROCEDURE INFORMATION: Exam: CT Abdomen And Pelvis [...] M [address] [facility] Unit #: [id number] Loc: [place] [address] Phys: Steve Urias MD Acct: [id number] Dis Date: Status: REG ER PHONE #: Exam Date: 06/27/2021 1623 FAX #: Reason: pain in region of colostomy EXAMS: CPT CODE: [id number] CT ABD PELVIS W/CONT 88211 <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 There is no evidence of associated intestinal obstruction. 2. No additional acute CT abnormalities of the abdomen or pelvis are identified. SL:131 at 1650 Reported and signed by: Marco Raman M.D. CC: Steve Urias MD Technologist:RT Alanna(R)(CT) CTDI: DLP: Trnscb Date/Time: 06/27/2021 (1649) t.FLEXR.DMM Orig Print D/T: S: 06/27/2021 (1649) PAGE 2 Signed ReportCBC W/AUTO [id number] 09:20:00 Test Item Value Reference Range Interpretation [...] (test code NO = MDIFF) CBC W/AUTO [id number] 08:59:00 Test Item Value Reference Range Interpretation [...] REQUIRED (test code = MDIFF) BASIC METABOLIC [id number] 08:21:00 Test Item Value Reference Range Interpretation [...] 8.4 mg/dL 8.0-10.5 N CA) BASIC METABOLIC [id number] 08:34:00 Test Item Value Reference Range Interpretation [...] 8.4 mg/dL 8.0-10.5 N CA) CBC W/AUTO [id number] 07:41:00 Test Item Value Reference Range Interpretation [...] = MDIFF) UA RFLX MICR CULT IF [id number] 10:10:00 Test Item Value Reference Range Interpretation [...] > 100.4 FSpecimen Description: MID STREAMBASIC METABOLIC [id number] 04:13:00 Test Item Value Reference Range Interpretation [...] mg/dL 8.0-10.5 N CA) Coronavirus 2018 nCoV [id number] 22:03:00 Test Item Value Reference Range Interpretation Comments Coronavirus 2018 Negative Negative Performed b y certified nCoV Bedside (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 Negative result s do not preclude ROLL-VtE-8cmjeb tion and should not be u sed as the sole basis forp atient management deci sions. Negative result s should beconsidered in the context of a patient's recent exposures,histo ry, presence of clinical sig ns and symptoms consis tentwith COVID-19. CBC W/AUTO [id number] 21:11:00 Test Item Value Reference Range Interpretation [...] MX#) 0.6 k/mm3 0.1-0.8 N BASIC METABOLIC [id number] 19:00:00 Test Item Value Reference Range Interpretation [...] POCGLU) 92 MG/DL - CT ABD PELVIS W/[id number] 00:00:00 [facility] : 1970 Sex: MName: DORA JOSEPH [facility] : 1970 Age/S: 51 / M [address] [facility] Unit #: [id number] Loc: [place] [address] Phys: Marcello Benoit MD Acct: [id number] Dis Date: Status: REG ERPHONE #: Exam Date: 04/28/20211913 FAX #: Reason: epigastric and LLQ pain, R-sided colostomy EXAMS: CPT CODE: [id number] CT ABD PELVIS W/CONT 41199 PROCEDURE INFORMATION: Exam: CT Abdomen And Pelvis [...] M [address] [facility] Unit #: [id number] Loc: [place] [address] Phys: Marcello Benoit MD Acct: [id number] Dis Date: Status: REG ER PHONE #: Exam Date: 04/28/20211913 FAX #: Reason: epigastric and LLQ pain, R-sided colostomy EXAMS: CPT CODE: [id number] CT ABD PELVIS W/CONT 24732 <Continued> Reproductive: Unremarkable as visualized. Bones/joints: Unremarkable. 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 Acct: [id number] Dis Date: Status: ADM IN PHONE#: [phone] Exam Date: 02/25/2020 1036 FAX #: Reason: abdominal distention EXAMS: CPT: [id number] ABDOMEN 1 V 12814 Fluoro Time: DAP (Gy m2): Air Kerma [...] PAGE1 Signed Report Name: DORA JOSEPH [facility] : 1970 Age/S: 50 / M [address] [facility] [place] Unit #: [id number] Loc: [place] [address] 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 Acct: [id number] Dis Date: Status: ADM IN PHONE #: [phone] Exam Date: 02/25/2020 1036 FAX #: Reason: abdominal distention EXAMS: CPT: [id number] XR ABDOMEN 1 V 50186 Fluoro Time: DAP (Gy m2): Air Kerma (mGy): <Continued> Technologist: Nichole Dill RT(R) Trnscb Date/Time: 02/25/2020 (572) tDARWINR.EFM1 Orig Print D/T: S: 02/25/2020 (6815) PAGE 2 Signed Report COMPREHENSIVE METABOLIC [id number] 08:20:00 Test Item Value Reference Range Interpretation [...] 50-136 L TOTAL (test code = ALKP) [id number] 08:20:00 Test Item Value Reference Range Interpretation Comments MAGNESIUM (test code = MAG) 2.2 MG/DL 1.8-2.4 N THYROID STIMULATING [id number] 08:20:00 Test Item Value Reference Range Interpretation Comments THYROID STIMULATING HORMONE 5.430 mcIU/ML 0.340-4.820 H (test code = TSH) CBC W/AUTO [id number] 07:55:00 Test Item Value Reference Range Interpretation [...] N NRBC#) UA RFLX MICR CULT IF [id number] 12:29:00 Test Item Value Reference Range Interpretation [...] culture: Suprapubic PainUA RFLX MICR CULT IF [id number] 12:29:00 Test Item Value Reference Range Interpretation [...] for culture: Suprapubic PainCOVID 19 Asymptomatic IH [id number] 22:09:00 Test Item Value Reference Range Interpretation [...] tent with COVID-19. - CT ABD PELVIS [id number] 21:10:00 Name: DORA JOSEPH [facility] : 1970 Age/S: 50 / M [address] [facility] [place] Unit #: [id number] Loc: [place] [address] Phys: Evin Castellanos MD Acct: [id number] Dis Date: Status: REG ERPHONE #: [phone] Exam Date: 02/23/20202047 FAX #: Reason: diffuse abdomen pain and distention EXAMS: CPT: [id number] CT ABD PELVIS W/CONT 13185 EXAM: - CT ABD PELVIS W/CONT LOCATION: [...] Signed Report (CONTINUED) Name: DORA JOSEPH [facility] : 1970 Age/S: 50 / M [address] [facility] [place] Unit #: [id number] Loc: [place] [address] Phys: Evin Castellanos MD Acct: [id number] Dis Date: Status: REG ER PHONE #: [phone] Exam Date: 02/23/20202047 FAX #: Reason: diffuse abdomen pain and distention EXAMS: CPT: [id number] CT ABD PELVIS W/CONT 47920 <Continued> CT. No bowel wall thickening or [...] M.D. CC: Susana Meza NP; Carl Flowers Technologist:Rudy Zuniga RT(R)(CT)(MRI) CTDI: DLP: Trnscb Date/Time: 02/23/2020 (2109) t.FLEXR.TH15 Orig Print D/T: S: 02/23/2020 (2112) PAGE 2 Signed Report- XR CHEST 1 [id number] 21:03:00 Name: DORA JOSEPH [facility] : 1970 Age/S: 50 / M [address] [facility] [place] [facility] [place] Unit #: [id number] Loc: [place] [address] Phys: Evin Castellanos MD Acct: [id number] Dis Date: Status: REG ERPHONE #: [phone] Exam Date: 02/23/20202055 FAX #: Reason: Code Sepsis EXAMS: CPT: [id number] XR CHEST 1 V 98302 Fluoro Time: DAP (Gy m2): Air Kerma [...] disease. 2. Chronic colonic air distention unchanged. tu7379 Reported and signed by: Monica Quijano MD CC: Susana Meza FIELD TECHNICAL SPECIALIST; Calr Luevano MD PAGE 1 Signed Report Name: DORA JOSEPH [facility] : 1970 Age/S: 50 / M [address] [place] [facility] [place] Unit #: [id number] Loc: [place] [address] Phys: Evin Castellanos MD Acct: [id number] Dis Date: Status: REG ER PHONE #: [phone] Exam Date: 02/23/20202055 FAX #: Reason: Code Sepsis EXAMS:CPT: [id number] XR CHEST 1 V 38403 Fluoro Time: DAP (Gy m2): Air Kerma (mGy): <Continued> Technologist: Rudy Zuniga, RT(R)(CT)(MRI) Trnscb Date/Time: 02/23/2020 (2102) t.FLEXR.CLW Orig Print D/T:S: 02/23/2020 (2106) PAGE 2 Signed ReportBASIC METABOLIC [id number] 20:02:00 Test Item Value Reference Range Interpretation [...] 8.5-10.1 N Completed by Nursing: NOHEPATIC FUNCTION [id number] 20:02:00 Test Item Value Reference Range Interpretation [...] N code = ALKP) Completed by Nursing: [id number] 20:02:00 Test Item Value Reference Range Interpretation Comments LIPASE (test code = LIP) 97 Unit/L 114-286 L Completed by Nursing: [id number]-[id number] 20:02:00 Test Item Value Reference Range Interpretation [...] brittani yby method. Completed by Nursing: NOLACTIC [id number] 19:59:00 Test Item Value Reference Range Interpretation Comments LACTIC ACID (test code = LACT) 1.2 mmol/L 0.4-2.0 N CBC W/AUTO [id number] 19:46:00 Test Item Value Reference Range Interpretation [...] CRITERIA = MDIFF) - XR ABDOMEN 2 [id number] 06:22:00 Name: DORA JOSEPH [facility] : 1970 Age/S: 50 / M [address] [facility] [place] Unit #: [id number] Loc: [place] [address] Phys: León Robertson MD Acct: [id number] Dis Date: Status: ADM IN PHONE #: [phone] Exam Date: 02/19/20200 FAX #: Reason: megacolon EXAMS: CPT: [id number] XRABDOMEN 2 V 47304 Fluoro Time: DAP (Gy m2): Air Kerma [...] 1 Signed Report Name: DORA JOSEPH [facility] : 1970 Age/S: 50 / M [address] [place] Unit #: [id number] Loc: [place] [address] Phys: León Robertson MD Acct: [id number] Dis Date: Status: ADM IN PHONE #: [phone] Exam Date: 02/19/20200 FAX #: Reason: megacolon EXAMS: CPT: [id number] XR ABDOMEN 2 V 68087 Fluoro Time: DAP (Gy m2): Air Kerma (mGy): <Continued> Ciara hnologist: Carrie Barnett, RT(R)(CT) Trnscb Date/Time: 02/19/2020 (06) tJUDSONAL7 Orig Print D/T: S: 02/19/2020 (0613) PAGE 2 Signed ReportBASIC METABOLIC [id number] 05:52:00 Test Item Value Reference Range Interpretation [...] CA) 8.5 MG/DL 8.5-10.1 N CBC W/AUTO [id number] 05:40:00 Test Item Value Reference Range Interpretation [...] NO DIFF/SCN CRITERIA = MDIFF) BASIC METABOLIC [id number] 06:52:00 Test Item Value Reference Range Interpretation [...] CA) 8.3 MG/DL 8.5-10.1 L CBC W/AUTO [id number] 06:39:00 Test Item Value Reference Range Interpretation [...] DIFF/SCN CRITERIA = MDIFF) Coronavirus 2019 nCoV [id number] 05:35:00 Test Item Value Reference Range Interpretation [...] tent with COVID-19. - XR ABDOMEN 1 [id number] 07:32:00 Name: DORA JOSEPH [facility] : 1970 Age/S: 49 / M [address] [place] Unit #: [id number] Loc: [place] [address] Phys: Jay Mayo MD Acct: [id number] Dis Date: Status: ADMIN PHONE #: [phone] Exam Date: 01/10/2020 0658 FAX #: Reason: follow up colonic ileus EXAMS: CPT: [id number] XR ABDOMEN 1 V 55804 Fluoro Time: DAP (Gy m2): Air Kerma [...] 1 Signed Report Name: DORA JOSEPH [facility] : 1970 Age/S: 49 / M [address] [place] Unit #: [id number] Loc: [place] [address] Phys: Jay Mayo MD Acct: [id number] Dis Date: Status: ADM IN PHONE #: [phone] Exam Date: 01/10/2020 0658 FAX #: Reason: follow up colonic ileus EXAMS: CPT: [id number] XR ABDOMEN 1 V 19604 Fluoro Time: DAP (Gy m2): Air Kerma (mGy): <Continued> Technologist: Bakari De Leon RT(R)(CT) Trnscb Date/Time: 01/10/2020(0732) tDARWINRLisehtCB5 Orig Print D/T: S: 01/10/2020 (0736) PAGE 2 Signed ReportCOMPREHENSIVE METABOLIC [id number] 05:56:00 Test Item Value Reference Range Interpretation [...] TOTAL (test code = ALKP) CBC W/AUTO [id number] 05:42:00 Test Item Value Reference Range Interpretation [...] = NO DIFF/SCN CRITERIA MDIFF) BASIC METABOLIC [id number] 06:59:00 Test Item Value Reference Range Interpretation [...] code = CA) 8.5 MG/DL 8.5-10.1 N [id number] 06:59:00 Test Item Value Reference Range Interpretation Comments MAGNESIUM (test code = MAG) 2.2 MG/DL 1.8-2.4 PROTHROMBIN [id number] 06:39:00 Test Item Value Reference Range Interpretation Comments PT PATIENT (test code = PTP) 13.1 SECONDS 9.3-12.9 H INTERNATIONAL NORMAL RATIO 1.16 INR Unit 0.8-1.2 N (test code = INR) CBC W/AUTO [id number] 06:22:00 Test Item Value Reference Range Interpretation [...] DIFF/SCN CRITERIA MDIFF) - XR ABDOMEN 1 [id number] 05:39:00 Name: DORA JOSEPH [facility] : 1970 Age/S: 49 / M [address] [place] Unit #: [id number] Loc: [place] [address] 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 MANAGER ENGINE Acct: [id number] Dis Date: Status: ADM IN PHONE #: [phone] Exam Date: 01/09/2020 05 FAX #: Reason: colonic ileus/obstruction EXAMS: CPT: [id number] XR ABDOMEN 1 V 15675 Fluoro Time: DAP (Gy m2): Air Kerma [...] PAGE 1 Signed Report Name: DORA JOSEPH [place] : 1970 Age/S: 49 / M [address] [address] [facility] [place] Unit #: [id number] Loc: [place] [address] 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 Acct: [id number] Dis Date: Status: ADM IN PHONE #: [phone] Exam Date: 01/09/2020 05 FAX #: Reason: colonic ileus/obstruction EXAMS: CPT: [id number] XR ABDOMEN 1V 11086 Fluoro Time: DAP (Gy m2): Air Kerma (mGy): <Continued> Technologist: Carrie Barnett, RT(R)(CT) Trnscb Date/Time: 01/09/2020 (538) t.KRISTI.FC Orig Print D/T: S: 01/09/2020 (0542) PAGE 2Signed ReportCoronavirus 2019 nCoV [id number] 22:38:00 Test Item Value Reference Range Interpretation Comments Coronavirus 2019 nCoV Bedside (test Negative Negative code = [id number]) Emergent procedure? YESCoronavirus 2018 nCoV [id number] 22:38:00 Test Item Value Reference Range Interpretation Comments Coronavirus 2019 nCoV Bedside (test Negative Negative code = [id number]) Emergent procedure? YESBASIC METABOLIC [id number] 18:42:00 Test Item Value Reference Range Interpretation [...] CA) 8.5 MG/DL 8.5-10.1 N CBC W/AUTO [id number] 10:50:00 Test Item Value Reference Range Interpretation [...] = NO DIFF/SCN CRITERIA MDIFF) COMPREHENSIVE METABOLIC [id number] 10:46:00 Test Item Value Reference Range Interpretation [...] 50-136 N TOTAL (test code = ALKP) [id number] 10:46:00 Test Item Value Reference Range Interpretation Comments MAGNESIUM (test code = MAG) 2.6 MG/DL 1.8-2.4 H COMPREHENSIVE METABOLIC [id number] 10:34:00 Test Item Value Reference Range Interpretation [...] TOTAL (test Unit/L 50-136 code = ALKP) [id number] 10:34:00 Test Item Value Reference Range Interpretation Comments MAGNESIUM (test code = MAG) MG/DL 1.8-2.4 - XR ABDOMEN 1 [id number] 08:28:00 Name: DORA JOSEPH Formerly [place] [facility] 1970 Age/S: 49 / M [address] [address] Unit #: [id number] Loc: [place] [address] Phys: Yas Edwards MD Acct: [id number] Dis Date: Status: ADM IN PHONE#: [phone] Exam Date: 01/08/2020 0510 FAX #: Reason: ileus EXAMS: CPT: [id number] XR ABDOMEN 1 V 15300 Fluoro Time: DAP (Gy m2): Air Kerma [...] PAGE 1 Signed Report Name: DORA JOSEPH [place] : 1970 Age/S: 49 / M [address] Unit #: [id number] Loc: [place] [address] Phys: Yas Edwards MD Acct: [id number] Dis Date: Status: ADM IN PHONE #: [phone] Exam Date: 01/08/2020 0590 FAX #: Reason: ileus EXAMS: CPT: [id number] XR ABDOMEN 1 V 73039 Fluoro Time: DAP (Gy m2): Air Kerma (mGy): <Continued> Technologist: Carrie Barnett, RT(R)(CT); ... Trnscb Date/Time: 01/08/2020 (827) t.TIGRE Orig Print D/T: S: 01/08/2020 (0831) PAGE 2 Signed ReportCOMPREHENSIVE METABOLIC [id number] 07:08:00 Test Item Value Reference Range Interpretation [...] 50-136 L TOTAL (test code = ALKP) [id number] 07:08:00 Test Item Value Reference Range Interpretation Comments MAGNESIUM (test code = MAG) 1.3 MG/DL 1.8-2.4 L COMPREHENSIVE METABOLIC [id number] 05:16:00 Test Item Value Reference Range Interpretation [...] 50-136 L TOTAL (test code = ALKP) [id number] 05:16:00 Test Item Value Reference Range Interpretation Comments MAGNESIUM (test code = MAG) 1.3 MG/DL 1.8-2.4 L CBC W/AUTO [id number] 05:02:00 Test Item Value Reference Range Interpretation [...] (test code = NO DIFF/SCN CRITERIA MDIFF) [id number] 16:51:00 Test Item Value Reference Range Interpretation Comments MAGNESIUM (test code = MAG) 2.3 MG/DL 1.8-2.4 N FE W/TOTAL IRON BINDING CAP.2020-01-07 16:51:00 Test Item Value Reference Range Interpretation Comments SERUM IRON (test code = IRON) 38 mcG/DL 65-175 L TOTAL IRON BINDING CAPACITY (test 322 mcG/DL 250-450 N code = TIBC) IRON SATURATION (test code = 12 % calc 12-57 N FESAT) [id number] 16:51:00 Test Item Value Reference Range Interpretation Comments FERRITIN (test code = DAVID) 17.6 NG/ML 5.0-323.0 N CALCIUM [id number] 16:50:00 Test Item Value Reference Range Interpretation Comments CALCIUM IONIZED (test code = NAVEED) 1.12 mmol/L 1.12-1.32 N - XR ABDOMEN 1 [id number] 10:29:00 Name: DORA JOSEPH [facility] : 1970 Age/S: 49 / M [address] [address] Unit #: [id number] Loc: [place] [address] Phys: Verona Frost PA-C Acct: [id number] Dis Date: Status: ADM IN PHONE #: [phone] Exam Date: 01/07/2020 0712 FAX #: Reason: reassess SBO EXAMS: CPT: [id number] XR ABDOMEN 1 V 98541 Fluoro Time: DAP (Gy m2): Air Kerma [...] PAGE 1 Signed Report Name: DORA JOSEPH [place] : 1970 Age/S: 49 / M [address] [address] Unit #: [id number] Loc: [place] [address] Phys: Verona Frost PA-C Acct: [id number] Dis Date: Status: ADM IN PHONE #: [phone] Exam Date: 01/07/2020 07 FAX #: Reason: reassess SBO EXAMS: CPT: [id number] XR ABDOMEN 1 V 19720 Fluoro Time: DAP (Gy m2): Air Kerma (mGy): <Continued> Technologist: Bakari De Leon RT(R)(CT) Trnscb Date/Time: 01/07/2020 (1029) t.FLEXR.AGV Orig Print D/T: S: 01/07/2020 (2275) PAGE 2 Signed ReportBASIC METABOLIC PANEL 2020-01-07 [...] CA) 5.4 MG/DL 8.5-10.1 LL CBC W/AUTO [id number] 06:49:00 Test Item Value Reference Range Interpretation [...] = NO DIFF/SCN CRITERIA MDIFF) COMPREHENSIVE METABOLIC [id number] 06:10:00 Test Item Value Reference Range Interpretation [...] TOTAL (test code = ALKP) CBC W/AUTO [id number] 05:52:00 Test Item Value Reference Range Interpretation [...] DIFF/SCN CRITERIA MDIFF) - XR ABDOMEN 1 [id number] 01:30:00 Name: DORA JOSEPH [facility] : 1970 Age/S: 49 / M [address] Unit #: [id number] Loc: [place] [address] Phys: Ted Coleman FIELD TECHNICAL SPECIALIST Acct: [id number] Dis Date: Status: ADM INPHONE #: [phone] Exam Date: 01/06/2020 0100 FAX #: Reason: NG Tube Placement Verification EXAMS: CPT: [id number] XR ABDOMEN 1 V 10493 Fluoro Time: DAP (Gy m2): Air Kerma [...] M.D. CC: Mark Perea MD; Ted Miller FIELD TECHNICAL SPECIALIST PAGE 1 Signed Report Name: DORA JOSEPH [facility] : 1970 Age/S: 49 / M [address] [facility] Unit #: [id number] Loc: [place] [address] Phys: Ted Coleman FIELD TECHNICAL SPECIALIST Acct: [id number] Dis Date: Status: ADM IN PHONE #: [phone] Exam Date: 01/06/2020 010 FAX #: Reason: NG Tube Placement Verification EXAMS: CPT: [id number] XR ABDOMEN 1 V 39852 Fluoro Time: DAP (Gy m2): Air Kerma (mGy): <Continued> Technologist: Amberly Borrero RT(R) Trnnjb Date/Time: 01/06/2020 (129) Herrera Orig Print D/T: S: 01/06/2020 (132) PAGE 2 Signed Report- CT ABD PELVIS W/O [id number] 19:42:00 [place]: St: REG -- Name: DORA JOSEPH [facility] : 1970 Age/S: 49/M [address] [facility] Unit: [id number] Loc: [place], [place]: [place] [address] Acct: [id number] Dis Date: Status: REG ER PHONE #: [phone] Exam Date: 12/13/20191924 FAX #: [phone] Reason: pain EXAMS: CPT CODE: [id number] CT ABD PELVIS W/O CONT 18168 Examination: CT scan abdomen and pelvis without [...] ALMANZAR Trnscrd Dt/Tm: 12/13/2019 (1941) GarettVR5 Orig PrintD/T: S: 12/13/2019 (5 PAGE 1 [...] code = CA) 8.6 mg/dl 8.0-10.5 N [id number] 18:49:00 Test Item Value Reference Range Interpretation Comments LIPASE (test code = LIP) 97 Units/L 65.0-230.0 N CBC W/AUTO [id number] 18:38:00 Test Item Value Reference Range Interpretation [...] K/mm3 0.0-0.2 N - XR CHEST 1 [id number] 18:36:00 [place]: St: PRE -- Name: DORA JOSEPH [facility] : 1970 Age/S: 49/M [address] [facility] Unit #: [id number] Loc: [place], [place]: [place] [address] Acct: [id number] Dis Date: Status: PRE ER PHONE #: [phone] Exam Date: 12/13/20191821 FAX #: [phone] Reason: SOB EXAMS: CPT CODE: [id number] XR CHEST 1 V 16886 Examination: One view chest x-ray Location code: [...] : By: GarettVR5 PAGE 1 Signed Report [place]: EM St: PRE ------ Name: DORA JOSEPH [facility] : 1970 Age/S: 49/M [address] [facility] Unit #: [id number] Loc: [place], [place]: [place] [address] Acct: [id number] Dis Date: Status: PRE ER PHONE #: [phone] Exam Date: 12/13/2019 182 FAX #: [phone] Reason:SOB EXAMS: CPT CODE: [id number] XR CHEST 1 V 98945 (Continued) Orig Print D/T: S: 12/13/2019 (1839)PAGE 2 [facility]igned [facility] W/PLT COUNT & AUTO [id number] 08:02:00 Test Item Value Reference Range Interpretation [...] Received comment: User comments: Slide comments:BASIC METABOLIC [id number] 07:34:00 Test Item Value Reference Range Interpretation [...] S NOT APPLICABLE FOR DIALYSIS PATIEN TS. [id number] 07:26:00 Test Item Value Reference Range Interpretation Comments PHOSPHORUS (BEAKER) (test code = 3.1 mg/dL 2.3-4.7 604) [id number] 07:26:00 Test Item Value Reference Range Interpretation Comments MAGNESIUM (BEAKER) (test code = 1.6 mg/dL 1.6-2.6 627) RAD, ABDOMEN/KUB, 1 VIEW [id number] 07:04:00Reason for exam:->ileusFINAL REPORT Abdomen , one [...] MDReport Verified Date/Time: 04/03/2019 07:04:46 Reading Location: [address] Ortho Consult Reading Room BASIC METABOLIC [id number] 06:47:00 Test Item Value Reference Range Interpretation [...] code = 413) URINALYSIS WITH MICROSCOPIC IF [id number] 22:01:00 Test Item Value Reference Range Interpretation [...] 463) SOURCE(BEAKER) (test code = 2795) URINALYSIS [id number] 22:01:00 Test Item Value Reference Range Interpretation Comments RBC UA (BEAKER) (test code = 519) 18 /HPF WBC UA (BEAKER) (test code = 520) 1 /HPF CALCIUM OXALATE CRYSTALS (BEAKER) Occasional (test code = 518) [id number] 05:49:00 Test Item Value Reference Range Interpretation Comments PHOSPHORUS (BEAKER) (test code = 2.5 mg/dL 2.3-4.7 604) [id number] 05:49:00 Test Item Value Reference Range Interpretation Comments MAGNESIUM (BEAKER) (test code = 1.7 mg/dL 1.6-2.6 627) BASIC METABOLIC [id number] 05:49:00 Test Item Value Reference Range Interpretation [...] (BEAKER) (test code = 413) BASIC METABOLIC [id number] 06:19:00 Test Item Value Reference Range Interpretation [...] S NOT APPLICABLE FOR DIALYSIS PATIEN TS. [id number] 06:10:00 Test Item Value Reference Range Interpretation Comments MAGNESIUM (BEAKER) 1.8 mg/dL 1.6-2.6 Specimen slightly (test code = 627) hemolyzed [id number] 06:10:00 Test Item Value Reference Range Interpretation [...] (BEAKER) (test code = 413) BASIC METABOLIC [id number] 04:57:00 Test Item Value Reference Range Interpretation [...] S NOT APPLICABLE FOR DIALYSIS PATIEN TS. [id number] 04:55:00 Test Item Value Reference Range Interpretation Comments PHOSPHORUS (BEAKER) (test code = 2.6 mg/dL 2.3-4.7 604) [id number] 04:55:00 Test Item Value Reference Range Interpretation Comments MAGNESIUM (BEAKER) (test code = 1.8 mg/dL 1.6-2.6 627) CT, [id number] 14:16:00FINAL REPORT TECHNIQUE: CT of the abdomen [...] Kim MDReport Verified Date/Time: 03/29/2019 14:16:01Reading Location: [facility] C013Y CT Body Reading Room , ABDOMEN/KUB, 1 VIEW [id number] 10:23:00Reason for exam:->evaluate ileusFINAL REPORT Technique: Supine [...] WBC 0-0 (BEAKER) (test code = 413) [id number] 06:20:00 Test Item Value Reference Range Interpretation Comments PHOSPHORUS (BEAKER) (test code = 2.6 mg/dL 2.3-4.7 604) [id number] 06:20:00 Test Item Value Reference Range Interpretation Comments MAGNESIUM (BEAKER) (test code = 2.0 mg/dL 1.6-2.6 627) BASIC METABOLIC [id number] 06:20:00 Test Item Value Reference Range Interpretation [...] TS. RAD, ABDOMEN SERIES W/ UPRIGHT PA [id number] 22:18:00Reason for exam:- >eval ileusFINAL REPORT CLINICAL [...] Date/Time: 03/28/2019 22:18:50 RAD, ABDOMEN/KUB, 1 VIEW [id number] 11:23:00Reason for exam:->abdominal distensionShould this be performed [...] Cruzort Verified Date/Time: 03/28/2019 11:23:34 Reading Location: [facility] Radiology Reading Room TISSUE [id number] 09:00:00Surgical Pathology Report Case: [id number] Authorizing Provider: Graciela Garrison MD Collected: 03/25/2019 [...] NEGATIVEFOR MALIGNANCY Signing Pathologist Direct Phone Line: [phone] signed by Jordan Celaya MD on 03/28/2019 at 9:00 [id number] and postop diagnosis: ileostomy statusA. End ileostomy; [...] nodes are not identified in the mesentery. [place] Tanner sections are submitted. Section code: A, claims service representative section of each end of first mentioned segment of small bowel; A2, claims service representative of first mentioned segment of small bowel mucosa; A3, area of hemorrhagic mesentery of second mentioned segment of mucosa; A4, claims service representative of hemorrhagic mucosa at open end of second portion of small bowel; A5, claims service representative of stapled margin from second [...] 0.2 cm. No gross lesions are identified. [place] sections are submitted. Section code: B1, proximal margin en face and tip; B2, claims service representative cross section. CG/pl Performed.[id number] 06:23:00 Test Item Value Reference Range Interpretation Comments PHOSPHORUS (BEAKER) (test code = 2.7 mg/dL 2.3-4.7 604) [id number] 06:23:00 Test Item Value Reference Range Interpretation Comments MAGNESIUM (BEAKER) (test code = 1.9 mg/dL 1.6-2.6 627) BASIC METABOLIC [id number] 06:23:00 Test Item Value Reference Range Interpretation [...] S NOT APPLICABLE FOR DIALYSIS PATIEN TS. [id number] 08:20:00 Test Item Value Reference Range Interpretation Comments PHOSPHORUS (BEAKER) (test code = 2.6 mg/dL 2.3-4.7 604) [id number] 08:20:00 Test Item Value Reference Range Interpretation Comments MAGNESIUM (BEAKER) (test code = 1.8 mg/dL 1.6-2.6 627) BASIC METABOLIC [id number] 08:20:00 Test Item Value Reference Range Interpretation [...] S NOT APPLICABLE FOR DIALYSIS PATIEN TS. [id number] 06:06:00 Test Item Value Reference Range Interpretation Comments PHOSPHORUS (BEAKER) (test code = 4.1 mg/dL 2.3-4.7 604) [id number] 06:06:00 Test Item Value Reference Range Interpretation Comments MAGNESIUM (BEAKER) (test code = 1.8 mg/dL 1.6-2.6 627) BASIC METABOLIC [id number] 06:06:00 Test Item Value Reference Range Interpretation [...] S NOT APPLICABLE FOR DIALYSIS PATIEN TS. [id number] 06:03:00 Test Item Value Reference Range Interpretation Comments PHOSPHORUS (BEAKER) (test code = 4.2 mg/dL 2.3-4.7 604) [id number] 06:03:00 Test Item Value Reference Range Interpretation Comments MAGNESIUM (BEAKER) (test code = 2.0 mg/dL 1.6-2.6 627) BASIC METABOLIC [id number] 06:03:00 Test Item Value Reference Range Interpretation [...] WBC 0-0 (BEAKER) (test code = 413) [id number] 05:52:00 Test Item Value Reference Range Interpretation Comments PHOSPHORUS (BEAKER) (test code = 4.2 mg/dL 2.3-4.7 604) [id number] 05:52:00 Test Item Value Reference Range Interpretation Comments MAGNESIUM (BEAKER) (test code = 1.9 mg/dL 1.6-2.6 627) BASIC METABOLIC [id number] 05:52:00 Test Item Value Reference Range Interpretation [...] S NOT APPLICABLE FOR DIALYSIS PATIEN TS. [id number] 06:51:00 Test Item Value Reference Range Interpretation Comments PHOSPHORUS (BEAKER) (test code = 4.3 mg/dL 2.3-4.7 604) [id number] 06:51:00 Test Item Value Reference Range Interpretation Comments MAGNESIUM (BEAKER) (test code = 2.0 mg/dL 1.6-2.6 627) BASIC METABOLIC [id number] 06:51:00 Test Item Value Reference Range Interpretation [...] 0-0 (BEAKER) (test code = 413) TISSUE [id number] 11:50:00Surgical Pathology Report Case: [id number] Authorizing Provider: Mela Larson MD Collected: 03/18/2019 1827 Ordering Location: [facility] PERIOPERATIVE Received: 03/21/2019 0823 SERVICES Pathologist: Jordan Celaya MD Specimen: Small Bowel, NOS A. SMALL BOWEL, ILEOSTOMY PROLAPSE, TAKEDOWN: - ANASTOMOSIS SITE WITH ACTIVE CHRONIC INFLAMMATION AND FOCAL ISCHEMIC CHANGES - MUCOSAL RESECTION MARGINS, NEGATIVE FOR MALIGNANCY - ONE BENIGN LYMPH NODE (0/1) - NEGATIVE FOR DYSPLASIA OR MALIGNANCYSigning Pathologist Direct Phone Line: [phone] signed by Jordan Celaya MDon 03/22/2019 at 11:50 [id number] of ileostomyReceived in a container labeled "small [...] 0.5 to 1.2 cm in greatest dimension. [place] sections are submitted as follows: A1-A2, mucosal resection margin, en face; A3-A6, claims service representative sections of the possible ostomy stump; A7-A11, serial claims service representative sections from mucosal resection margin to the possible ostomy stump; A12, two lymph nodes. TH/plPerformed.[id number] 06:58:00 Test Item Value Reference Range Interpretation Comments PHOSPHORUS (BEAKER) (test code = 3.8 mg/dL 2.3-4.7 604) [id number] 06:58:00 Test Item Value Reference Range Interpretation Comments MAGNESIUM (BEAKER) (test code = 2.0 mg/dL 1.6-2.6 627) BASIC METABOLIC [id number] 06:58:00 Test Item Value Reference Range Interpretation [...] PATIEN TS. CBC W/PLT COUNT & AUTO [id number] 05:42:00 Test Item Value Reference Range Interpretation [...] PERCENT (BEAKER) (test code = 2801) FL, [id number] 17:42:00Reason for exam:->evaluate for colon stricture as [...] Lopezeport Verified Date/Time: 03/21/2019 17:42:21 Reading Location: [facility] C013X [facility] Consult Reading Room [id number] 03:58:00 Test Item Value Reference Range Interpretation Comments PHOSPHORUS (BEAKER) (test code = 3.0 mg/dL 2.3-4.7 604) [id number] 03:58:00 Test Item Value Reference Range Interpretation Comments MAGNESIUM (BEAKER) (test code = 2.0 mg/dL 1.6-2.6 627) BASIC METABOLIC [id number] 03:58:00 Test Item Value Reference Range Interpretation [...] PATIEN TS. CBC W/PLT COUNT & AUTO [id number] 03:20:00 Test Item Value Reference Range Interpretation [...] (BEAKER) (test code = 2801) BASIC METABOLIC [id number] 06:26:00 Test Item Value Reference Range Interpretation [...] S NOT APPLICABLE FOR DIALYSIS PATIEN TS. [id number] 06:05:00 Test Item Value Reference Range Interpretation Comments PHOSPHORUS (BEAKER) (test code = 2.2 mg/dL 2.3-4.7 L 604) [id number] 06:05:00 Test Item Value Reference Range Interpretation Comments MAGNESIUM (BEAKER) (test code = 2.0 mg/dL 1.6-2.6 627) CBC W/PLT COUNT & AUTO [id number] 05:25:00 Test Item Value Reference Range Interpretation [...] 0-1 PERCENT (BEAKER) (test code = 2801) [id number] 04:31:00 Test Item Value Reference Range Interpretation Comments PHOSPHORUS (BEAKER) (test code = 3.7 mg/dL 2.3-4.7 604) [id number] 04:31:00 Test Item Value Reference Range Interpretation Comments MAGNESIUM (BEAKER) (test code = 1.9 mg/dL 1.6-2.6 627) BASIC METABOLIC [id number] 04:31:00 Test Item Value Reference Range Interpretation [...] PATIEN TS. CBC W/PLT COUNT & AUTO [id number] 04:15:00 Test Item Value Reference Range Interpretation [...] 0-1 PERCENT (BEAKER) (test code = 2801) [id number] 06:41:00 Test Item Value Reference Range Interpretation Comments PHOSPHORUS (BEAKER) (test code = 3.1 mg/dL 2.3-4.7 604) [id number] 06:41:00 Test Item Value Reference Range Interpretation Comments MAGNESIUM (BEAKER) (test code = 1.9 mg/dL 1.6-2.6 627) BASIC METABOLIC [id number] 06:41:00 Test Item Value Reference Range Interpretation [...] PATIEN TS. CBC W/PLT COUNT & AUTO [id number] 06:36:00 Test Item Value Reference Range Interpretation [...] PERCENT (BEAKER) (test code = 2801) CT, [id number] 17:04:00No PO contrastFINAL REPORT ABDOMINAL AND PELVIS [...] MDReport Verified Date/Time: 03/17/2019 17:04:19 Reading Location: [facility] B[facility] C013Y CT Body Reading Room XR ABDOMEN 2 [id number] 09:03:45XR ABDOMEN 2 VIEWSLOCATION: [id number]: Colstomy ProlapseCOMPARISON: Chest radiograph 04/15/2017, CT of [...] Nonspecific, nonobstructive bowel gas pattern.XR CHEST 1 [id number] 11:32:15EXAM: CHEST ONE VIEWINDICATION: Chest painCOMPARISON: None availableTECHNIQUE: AP view of the chest.FINDINGS: The cardiomediastinal silhouette is normal. The lungs are clearbilaterally. No pneumothoraxor pleural effusion is identified. Theosseous structures are unremarkable.IMPRESSION: No acute cardiopulmonary process.LOCATION: M72Vqcgj Type and [id number] 21:21:00 Test Item Value Reference Range Interpretation Comments ABO type (test code = ABO) O Rh Type (test code = RH) Positive Comprehensive Metabolic [id number] 20:36:00 Test Item Value Reference Range Interpretation [...] the National Kidney Foundation,http ://nkd ep.nih.gov Alcohol/Ethanol, [id number] 20:36:00 Test Item Value Reference Range Interpretation Comments Alcohol, Ethyl <0.01 g/dL 0.00-0.01 N Intoxicated 0 .080 g/dL (test code = ETOH) or more Prothrombin [id number] 20:00:00 Test Item Value Reference Range Interpretation Comments PT (test code = PT) 10.10 seconds 9.78-13.35 N INR (test code = INR) 0.88 Ratio 0.6-1.2 N Partial Thromboplastin [id number] 20:00:00 Test Item Value Reference Range Interpretation Comments aPTT (test code = PTT) 31.50 seconds 24.39-37.25 N CBC with [id number] 19:50:00 Test Item Value Reference Range Interpretation [...] code = ALYMPH) 2.2 K/cumm 0.5-4.6 N [place] Abs (test code = AMONO) 0.4 K/cumm 0.0-1.2 N Eos Abs (test code = AEOS) 0.17 K/cumm 0.00-0.74 N Baso Abs (test code = ABASO) 0.0 K/cumm 0.00-0.21 N 10514& PELVIS W/O [id number] 17:36:28CT ABDOMEN AND PELVIS WITHOUT CONTRAST.CLINICAL HISTORY: [...]
--- NOTE | 2022-10-09 21:08 | RAD REPORT ---
EXAM DESCRIPTION: Lucas Single View10/09/2022 8:37 pm CLINICAL HISTORY: Chest pain COMPARISON: 2021 FINDINGS: Chronic dilatation of the diaphragm The lungs appear clear of acute infiltrate. The heart is normal size IMPRESSION: No acute abnormalities displayed
[2022-10-09 21:23] LABS: Absolute Lymphocytes (CBC) 1.8 K/uL (0.7-4.9); Hematocrit 37.6 % (39.6-49.0); Lymphocytes % 22.9 % (15.3-44.8); MCV 89.9 fL (80-100); MPV 6.8 fL (7.6-11.3); RBC Red Blood Cell Count 4.18 M/uL (4.33-5.43)
[2022-10-09 21:24] LABS: Protime INR 0.91
[2022-10-09 21:36] LABS: Magnesium 2.2 mg/dL (1.6-2.4); Potassium 3.3 mmol/L (3.5-5.1); Troponin High Sensitivity 3.7 pg/mL (<58.9)
[2022-10-09] MEDS ORDERED: NA CHLORIDE 0.9% 1,000 ML ONE ×2 (23:03→23:20)
[2022-10-09] MEDS ORDERED: POTASSIUM 25 MEQ EFFERV TAB ONE (23:09)
--- NOTE | 2022-10-10 00:58 | EDPHYS ---
Physician Documentation [facility] Name: Rico Mcneill Age: 52 yrs Sex: Male : 1970 Arrival Date: 10/09/2022 Time: 19:10 Bed 11 Private MD: ED Physician Demario Soriano HPI: 10/09 20:00 This 52 yrs old Male presents to ER via EMS with complaints of Chest Pain. cp 20:00 The patient or guardian reports chest pain that is located primarily in the anterior cp chest wall. 20:00 Onset: today. Associated signs and symptoms: Pertinent positives: nausea, Pertinent cp negatives: abdominal pain, cough, diaphoresis, dizziness, lower extremity pain, lower extremity swelling, shortness of breath, syncope. The chest pain is described as aching. Duration: The patient or guardian reports a single episode, that is still ongoing, and unchanged. Historical: - Allergies: 19:15 NKDA; as6 - PMHx: 19:15 Hypertensive disorder; ileostomy; as6 - PSHx: 19:15 Small bowel resection with ileostomy; as6 - Immunization history:: Client reports having NOT received the Covid vaccine. - Social history:: Smoking status: Patient reports the use of cigarette tobacco products. ROS: 20:05 Eyes: Negative for injury, pain, redness, and discharge. cp 20:05 Constitutional: Negative for body aches, chills, fever, poor PO intake. 20:05 ENT: Negative for drainage from ear(s), ear pain, sore throat, difficulty swallowing, difficulty handling secretions. 20:05 Cardiovascular: Positive for chest pain, Negative for edema, palpitations. 20:05 Respiratory: Negative for cough, shortness of breath, wheezing. 20:05 Abdomen/GI: Positive for nausea, loose stools, Negative for abdominal pain, vomiting, constipation. 20:05 Back: Negative for pain at rest, pain with movement. 20:05 Neuro: Negative for altered mental status, headache, syncope, weakness. 20:05 All other systems are negative. Exam: 19:38 ECG was reviewed by the Attending Physician. cp 20:05 Head/Face: Normocephalic, atraumatic. cp 20:05 Constitutional: The patient appears in no acute distress, alert, awake, comfortable, non-diaphoretic, non-toxic, well developed, well nourished. 20:05 Eyes: Periorbital structures: appear normal, Conjunctiva: normal, no exudate, no injection, Sclera: no appreciated abnormality, Lids and lashes: appear normal, bilaterally. 20:05 ENT: External ear(s): are unremarkable, Nose: is normal, Mouth: Lips: dry, Oral mucosa: moist, Posterior pharynx: Airway: no evidence of obstruction, patent. 20:05 Chest/axilla: Inspection: normal. 20:05 Cardiovascular: Rate: normal, Rhythm: regular. 20:05 Respiratory: the patient does not display signs of respiratory distress, Respirations: normal, no use of accessory muscles, no retractions, Breath sounds: are clear throughout, no decreased breath sounds, no stridor, no wheezing. 20:05 Abdomen/GI: Bowel sounds: active, all quadrants, Palpation: abdomen is soft and non-tender, in all quadrants. 20:05 Neuro: Orientation: to person, place \T\ time. Mentation: is normal, Motor: moves all fours, strength is normal. Vital Signs: 19:22 BP 98 / 78; Pulse 87; Resp 18 S; Temp 97.9(O); Pulse Ox 100% on R/A; Weight 65.77 kg as6 (R); Height 6 ft. 1 in. (185.42 cm) (R); Pain 9/10; 21:12 BP 102 / 67; Pulse 83; Resp 17 S; Pulse Ox 100% on R/A; as6 23:09 BP 101 / 72; Pulse 75; Resp 13 S; Pulse Ox 99% on R/A; as6 10/10 01:11 BP 91 / 66; Pulse 88; Resp 18 S; Pulse Ox 97% on R/A; as6 10/09 19:22 Body Mass Index 19.13 (65.77 kg, 185.42 cm) as6 MDM: 10/09 19:51 Patient medically screened. 10/09 19:55 Order name: Basic Metabolic Panel; Complete Time: 22:28 cp 10/09 22:28 Interpretation: Normal except: NA 131; K 3.3; BUN 35; CRE 1.62; GFR 51. 10/09 19:55 Order name: CBC with Diff; Complete Time: 22:28 cp 10/10 00:53 Interpretation: Normal except: RBC 4.18; HGB 12.0; HCT 37.6; RDW 16.8; MPV 6.8. cp 10/09 19:55 Order name: Magnesium; Complete Time: 22:28 cp 10/09 19:55 Order name: NT PRO-BNP; Complete Time: 22:28 cp 10/09 19:55 Order name: PT-INR; Complete Time: 22:28 cp 10/09 19:55 Order name: Troponin HS; Complete Time: 22:28 cp 10/09 19:26 Order name: EKG - Nurse/Tech; Complete Time: 19:33 as6 10/09 19:55 Order name: XRAY Chest (1 view); Complete Time: 22:28 cp 10/09 19:55 Order name: EKG; Complete Time: 19:56 cp 10/09 19:55 Order name: Cardiac monitoring; Complete Time: 20:22 cp 10/09 23:44 Order name: Troponin High Sensitivity; Complete Time: 00:53 cp 10/10 00:54 Interpretation: Reviewed. cp 10/09 19:55 Order name: IV Saline Lock; Complete Time: 23:04 cp 10/09 19:55 Order name: Labs collected and sent; Complete Time: 21:11 cp 10/09 19:55 Order name: O2 Per Protocol; Complete Time: 20:23 cp 10/09 19:55 Order name: O2 Sat Monitoring; Complete Time: 20:23 cp EC:38 Rate is 90 beats/min. Rhythm is regular. MA interval is normal. QRS interval is normal. cp QT interval is normal. T waves are Inverted in leads aVL, aVR. Interpreted by me. Reviewed by me. Administered Medications: 23:04 Drug: NS 0.9% 1000 ml Route: IV; Rate: 1 bolus; Site: left hand; 10/10 01:01 Follow up: Response: No adverse reaction; IV Status: Completed infusion; IV Intake: as6 1000ml 10/09 23:09 Drug: Potassium Effervescent Tablet 50 mEq Route: PO; 10/10 01:01 Follow up: Response: No adverse reaction 10/09 23:18 Drug: NS 0.9% 1000 ml Route: IV; Rate: 1000 ml/hr; Site: left hand; 10/10 01:01 Follow up: Response: No adverse reaction; IV Status: Completed infusion; IV Intake: as6 1000ml Disposition: 06:52 Co-signature as Attending Physician, Demario Soriano MD I agree with the assessment and kdr plan of care. Disposition Summary: 10/10/22 00:57 Discharge Ordered Location: Home cp Problem: new cp Symptoms: have improved cp Condition: Stable cp Diagnosis - Chest pain, unspecified cp - Dehydration cp Followup: cp - With: Private Physician - When: 2 - 3 days - Reason: Recheck today's complaints Discharge Instructions: - Discharge Summary Sheet cp - Nonspecific Chest Pain, Adult cp - Dehydration, Adult cp - Aspirin and Your Heart cp Forms: - Medication Reconciliation Form cp - Thank You Letter cp - Antibiotic Education cp - Prescription Opioid Use cp Signatures: Dispatcher [employer] EDMS Demario Soriano MD MD kdr Rashaun Irby PA PA cp Clarence Thomas RN RN as6 Corrections: (The following items were deleted from the chart) 10/11 01:10/10 20:05 Constitutional: Negative for body aches, chills, fever, poor PO intake, cp cp 10/11 01:10/10 20:05 Cardiovascular: Positive for chest pain, Negative for edema, palpitations, cp cp 10/11 00:10/10 20:05 Respiratory: Negative for cough, shortness of breath, wheezing, cp cp 10/11 01:10 10/10 20:05 Abdomen/GI: Positive for nausea, loose stools, Negative for abdominal pain, cp vomiting, constipation, cp 10/11 00:10/10 20:05 Eyes: Negative for injury, pain, redness, and discharge, cp cp 10/11 01:10/10 20:05 ENT: Negative for drainage from ear(s), ear pain, sore throat, difficulty cp swallowing, difficulty handling secretions, cp 10/11 00:10/10 20:05 Back: Negative for pain at rest, pain with movement, cp cp 10/11 00:10/10 20:05 Neuro: Negative for altered mental status, headache, syncope, weakness, cp cp 10/11 01:10/10 20:05 All other systems are negative, cp cp
--- NOTE | 2022-10-10 00:58 | ER ---
Nurse's Notes [facility] Name: Rico Mcneill Age: 52 yrs Sex: Male : 1970 Arrival Date: 10/09/2022 Time: 19:10 Bed 11 Private MD: Diagnosis: Chest pain, unspecified;Dehydration Presentation: 10/09 19:13 Chief complaint: EMS states: called out for chest pain. Coronavirus screen: At this as6 time, the client does not indicate any symptoms associated with coronavirus-19. Ebola Screen: No symptoms or risks identified at this time. Risk Assessment: Do you want to hurt yourself or someone else? Patient reports no desire to harm self or others. Onset of symptoms was October 09, 2022. 19:13 Acuity: OCTAVIO 3 as6 19:13 Method Of Arrival: EMS: [facility] as6 19:22 Initial Sepsis Screen: Does the patient meet any 2 criteria? No. Patient's initial as6 sepsis screen is negative. Does the patient have a suspected source of infection? No. Patient's initial sepsis screen is negative. Triage Assessment: 19:24 General: Appears in no apparent distress. Behavior is calm, cooperative. Pain: as6 Complains of pain in chest. 20:17 GI: Ileostomy site. :. as6 20:18 Cardiovascular: Reports chest pain, Rhythm is sinus rhythm. as6 Historical: - Allergies: 19:15 NKDA; as6 - PMHx: 19:15 Hypertensive disorder; ileostomy; as6 - PSHx: 19:15 Small bowel resection with ileostomy; as6 - Immunization history:: Client reports having NOT received the Covid vaccine. - Social history:: Smoking status: Patient reports the use of cigarette tobacco products. Screenin:44 [facility] ED Fall Risk Assessment (Adult) Score/Fall Risk Level 0 - 2 = Low Risk. Abuse as6 screen: Denies threats or abuse. Denies injuries from another. Nutritional screening: No deficits noted. Tuberculosis screening: No symptoms or risk factors identified. Assessment: 20:44 General: several unsuccessful IV attempts by self and ERT . as6 21:12 Reassessment: Patient appears in no apparent distress at this time. Patient and/or as6 family updated on plan of care and expected duration. Pain level reassessed. Patient is alert, oriented x 3, equal unlabored respirations, skin warm/dry/pink. 23:10 Reassessment: Patient appears in no apparent distress at this time. Patient and/or as6 family updated on plan of care and expected duration. Pain level reassessed. Patient is alert, oriented x 3, equal unlabored respirations, skin warm/dry/pink. Vital Signs: 19:22 BP 98 / 78; Pulse 87; Resp 18 S; Temp 97.9(O); Pulse Ox 100% on R/A; Weight 65.77 kg as6 (R); Height 6 ft. 1 in. (185.42 cm) (R); Pain 9/10; 21:12 BP 102 / 67; Pulse 83; Resp 17 S; Pulse Ox 100% on R/A; as6 23:09 BP 101 / 72; Pulse 75; Resp 13 S; Pulse Ox 99% on R/A; as6 10/10 01:11 BP 91 / 66; Pulse 88; Resp 18 S; Pulse Ox 97% on R/A; as6 10/09 19:22 Body Mass Index 19.13 (65.77 kg, 185.42 cm) as6 ED Course: 10/09 19:10 Patient arrived in ED. rg4 19:14 Triage completed. as6 19:14 Arm band placed on. as6 19:33 Rashaun Irby PA is PHCP. cp 19:33 Demario Soriano MD is Attending Physician. cp 20:15 Clarence Thomas, BRITTNY is Primary Nurse. as6 20:18 Placed in gown. Bed in low position. Call light in reach. Side rails up X 1. Client as6 placed on continuous cardiac and pulse oximetry monitoring. NIBP monitoring applied. Warm blanket given. 20:18 Patient maintains SpO2 saturation greater than 95% on room air. as6 20:39 XRAY Chest (1 view) In Process Unspecified. EDMS 23:00 Inserted saline lock: 22 gauge in left hand, using aseptic technique. as6 10/10 01:02 No provider procedures requiring assistance completed. as6 01:11 IV discontinued, intact, bleeding controlled, No redness/swelling at site. Pressure as6 dressing applied. Administered Medications: 10/09 23:04 Drug: NS 0.9% 1000 ml Route: IV; Rate: 1 bolus; Site: left hand; 10/10 01:01 Follow up: Response: No adverse reaction; IV Status: Completed infusion; IV Intake: as6 1000ml 10/09 23:09 Drug: Potassium Effervescent Tablet 50 mEq Route: PO; 10/10 01:01 Follow up: Response: No adverse reaction 10/09 23:18 Drug: NS 0.9% 1000 ml Route: IV; Rate: 1000 ml/hr; Site: left hand; 10/10 01:01 Follow up: Response: No adverse reaction; IV Status: Completed infusion; IV Intake: as6 1000ml Medication: 01:02 VIS not applicable for this client. as6 Intake: 01:01 IV: 1000ml; Total: 1000ml. as6 01:01 IV: 1000ml; Total: 2000ml. as6 Outcome: 00:57 Discharge ordered by MD. preeti 01:02 Discharged to home ambulatory. as6 01:02 Condition: stable 01:11 Discharge instructions given to patient, Instructed on discharge instructions, follow as6 up and referral plans. Demonstrated understanding of instructions, follow-up care. 01:12 Patient left the ED. as6 Signatures: Dispatcher [employer] EDMS Rashaun Irby PA PA cp Garcia, Rubi rg4 Clarence Thomas RN RN as6
[2022-10-10 01:27] VITALS: TEMP 97.9
[2022-10-10 01:48] VITALS: BP 91/66; O2SAT 97
--- NOTE | 2022-10-10 16:01 | EKG ---
Test Date: 2022-10-09 Test Time: 19:30:21 Airplane Electrician: MEASUREMENT RESULTS: Intervals: Rate: 89 CA: 102 QRSD: 84 QT: 350 QTc: 425 [place]: P: 67 CA: 102 QRS: 79 T: 82 INTERPRETIVE STATEMENTS: Sinus rhythm with short CA Otherwise normal ECG Compared to ECG 09/17/2022 09:51:43 Short CA interval now present Atrial premature complex(es) no longer present Electronically Signed On 10-10-22 16:00:07 ULTRASOUND APPLICATIONS SPECIALIST by Rivera Ascencio
--- NOTE | 2022-10-13 12:47 | EKG ---
Test Date: 2022-10-09 Test Time: 19:33:05 Theater Projectionist: MEASUREMENT RESULTS: Intervals: Rate: 90 IA: 138 QRSD: 98 QT: 346 QTc: 423 [place]: P: 87 IA: 138 QRS: 75 T: 81 INTERPRETIVE STATEMENTS: Normal sinus rhythm Normal ECG Compared to ECG 10/09/2022 19:30:21 Short IA interval no longer present Electronically Signed On 10-13-22 12:38:55 ETHYLBENZENE CONVERTER HELPER by Rivera Ascencio
== END 2022-10-10 01:12 | disposition home or self-care (01) ==
LOC: ER 19:09
DX: R07.89 Other chest pain (principal); E86.0 Dehydration; I10 Essential (primary) hypertension; Z72.0 Tobacco use
CPT/HCPCS: 36415; 71045; 80048; 83735; 83880; 84484; 85025; 85610; 93005; 96360; 96361; 99285; J7030

== ENCOUNTER 2023-04-20 19:57 | Inpatient (IN) | payer SELFPAY ==
--- NOTE | 2023-04-20 20:55 | RAD REPORT ---
EXAM DESCRIPTION: CT - Abdomen Pelvis Wo Contrast - 04/20/2023 8:45 pm CLINICAL HISTORY: Abdominal pain. Abd pain;Abdominal distention COMPARISON: Abdomen Pelvis Wo Contrast dated 04/15/2022 TECHNIQUE: CT imaging of the abdomen and pelvis was performed without contrast. Solid organ, bowel a nd vascular assessment is limited due to lack of IV and oral contrast. All CT scans are performed using dose optimization technique as appropriate and may include automated exposure control or mA/KV adjustment according to patient size. FINDINGS: The lower lung childress are clear. The liver, spleen, pancreas, adrenal glands and kidneys are within normal limits for a limited non-co ntrast examination. There are multiple dilated air-filled bowel loops in the abdomen. The majority of the colon is surgic ally absent. Mild lumbar degenerative changes. IMPRESSION: Wall thickening and moderate gaseous distention the bowel throughout the abdomen seen. T his is favored to represent a diffuse ileus. Follow-up radiographs 24-48 hours would be helpful for c larification. 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 A limited non-contrast examination was performed as detailed.
--- OUTSIDE RECORDS SUMMARY | 2023-04-20 21:04 | XMS REPORT | Continuity of Care Document ---
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 tablet in the evening. Take with meals. acetaminoph 2023-0 Yes [id number] 1000mg Take 2 Univers en 500 mg 4-18 tablets by ity of tablet 00:00: mouth [place] 00 every 8 Medical (eight) Branch hours. ibuprofen 2023-0 Yes [id number] 400mg Take 1 U nivers 400 mg 4-18 tablet by ity of tablet 00:00: mouth in [place] 00 the Medical morning Branch and 1 tablet at noon and 1 tablet in the evening. Take with meals. acetaminoph 2023-0 Yes [id number] 1000mg Take 2 Univers en 500 mg 4-18 tablets by ity of tablet 00:00: mouth [place] 00 every 8 Medical ([facility]) Branch hours. ibuprofen 2023-0 Yes [id number] 400mg Take 1 U nivers 400 mg 4-18 tablet by ity of tablet 00:00: mouth in [place] 00 the [facility] morning Branch and 1 tablet at noon and 1 tablet in the evening. Take with meals. acetaminoph 2023-0 Yes [id number] 1000mg Take 2 Univers en 500 mg 4-18 tablets by ity of tablet 00:00: mouth [place] 00 every 8 Medical ([facility]) Branch hours. ibuprofen 2023-0 Yes [id number] 400mg Take 1 U nivers 400 mg 4-18 tablet by ity of tablet 00:00: mouth in [place] 00 the Medical morning Branch and 1 tablet at noon and 1 tablet in the evening. Take with meals. acetaminoph 2023-0 Yes [id number] 1000mg Take 2 Univers en 500 mg 4-18 tablets by ity of tablet 00:00: mouth [place] 00 every 8 Medical (eight) Branch hours. ibuprofen 2023-0 Yes [id number] 400mg Take 1 U nivers 400 mg 4-18 tablet by ity of tablet 00:00: mouth in [place] 00 the Medical morning Branch and 1 tablet at noon and 1 tablet in the evening. Take with meals. acetaminoph 2023-0 Yes [id number] 1000mg Take 2 [facility] en 500 mg 4-18 tablets by ity of tablet 00:00: mouth [place] 00 every 8 Medical (eight) Branch hours. ibuprofen 3-0 Yes [id number] 400mg Take 1 U nivers 400 mg 4-18 tablet by ity of tablet 00:00: mouth in [place] 00 the Medical morning Branch and 1 tablet at noon and 1 tablet in the evening. Take with meals. gabapentin 2022-0 2023- No [id number] 300mg Take 1 Univers 300 mg 4-18 05-03 capsule by ity of capsule 00:00: 04:59 mouth in [place] 00 :00 the Medical morning Branch and 1 capsule at noon and 1 capsule in the evening. Do all this for 14 days. methocarbam 2022-0 2023- No [id number] 500mg Take 1 Univers oL 500 mg 4-18 05-03 tablet by ity of tablet 00:00: 04:59 mouth 4 [place] 00 :00 ([facility]) [facility] times [place] daily for 14 days. gabapentin 2022-0 2023- No [id number] 300mg Take 1 Univers 300 mg 4-18 05-03 capsule by ity of capsule 00:00: 04:59 mouth in [place] 00 :00 the [facility] morning Branch and 1 capsule at noon and 1 capsule in the evening. Do all this for 14 days. methocarbam 3-0 2023- No [id number] 500mg Take 1 Univers oL 500 mg 4-18 05-03 tablet by ity of tablet 00:00: 04:59 mouth 4 [place] 00 :00 ([facility]) [facility] times [place] daily for 14 days. gabapentin 2022-0 2023- No [id number] 300mg Take 1 Univers 300 mg 4-18 05-03 capsule by ity of capsule 00:00: 04:59 mouth in [place] 00 :00 the [facility] morning Branch and 1 capsule at noon and 1 capsule in the evening. Do all this for 14 days. methocarbam 2023-0 2023- No [id number] 500mg Take 1 Univers oL 500 mg 4-18 05-03 tablet by ity of tablet 00:00: 04:59 mouth 4 [place] 00 :00 (four) [facility] times [place] daily for 14 days. gabapentin 2023-0 2023- No [id number] 300mg Take 1 Univers 300 mg 4-18 05-03 capsule by ity of capsule 00:00: 04:59 mouth in [place] 00 :00 the [facility] morning Branch and 1 capsule at noon and 1 capsule in the evening. Do all this for 14 days. methocarbam 2023-0 2023- No [id number] 500mg Take 1 Univers oL 500 mg -08 01-03 tablet by ity of tablet 00:00: 04:59 mouth 4 [place] 00 :00 ([facility]) [facility] daily for 14 days. gabapentin 2023-0 2023- No [id number] 300mg Take 1 Univers 300 mg -18 -03 capsule by ity of capsule 00:00: 04:59 mouth in [place] 00 :00 the [facility] morning Branch and 1 capsule at noon and 1 capsule in the evening. Do all this for 14 days. methocarbam 2023-0 2023- No [id number] 500mg Take 1 Univers oL 500 mg 12-09-03 tablet by ity of tablet 00:00: 04:59 mouth 4 [place] 00 :00 ([facility]) [facility] daily for 14 days. acetaminoph 2023-0 2023- No [id number] 1000mg Take 2 Univers en 500 mg 4-18 -18 tablets by ity of tablet 00:00: 00:00 mouth [place] 00 :00 every 8 Medical (eight) Branch hours for 5 days. ibuprofen 2023-0 2023- No [id number] 400mg Take 1 Univers 400 mg 4-18 -18 tablet by ity of tablet 00:00: 00:00 mouth in [place] 00 :00 the [facility] morning Branch and 1 tablet at noon and 1 tablet in the evening. Take with meals. Do all this for 10 days. methocarbam 2023-0 2023- No [id number] 500mg Take 1 Univers oL 500 mg 4-18 -18 tablet by ity of tablet 00:00: 00:00 mouth 4 [place] 00 :00 ([facility]) [facility] daily for 5 days. D5W 0.45% 2023-0 Yes 1000mL at 20 Unive rs NaCl 4-17 mL/hr, ity of (1/2NS) IV 11:30: 1,000 mL, [place] infusion 00 IV Medical 1,000 mL Infusion, Branch CONTINUOUS , Starting on Thu12/08/22 at 0630, Until Discontinu ed, Routine D5W 0.45% 2023-0 2023- No 1000mL at 75 Univ ers NaCl 4-16 04-17 mL/hr, ity of (1/2NS) IV 23:15: 11:20 1,000 mL, [place] infusion 00 :13 IV Medical 1,000 mL Infusion, Branch CONTINUOUS , Starting on 12/07/22 at 1815, Until 12/08/22 at 0620, Routine acetaminoph 2023-0 Yes 1000mg 1,000 mg, Univers en 4-16 Oral, Q8H, ity of (TYLENOL) 19:00: First dose [place] tablet 00 on [facility] 1,000 mg 12/07/22 at [facility] h 1400, Until Discontinu ed, Routine lactated 2023-0 2023- No 500mL at 999 Unive rs ringers IV 4-16 04-16 mL/hr, 500 it y of infusion 17:45: 19:04 mL, [place] 500 mL 00 :00 Intravenou Medical s, ONCE, 1 Branch dose, On 12/07/22 at 1245, Routine lactated 2023-0 2023- No 500mL at 999 Unive rs ringers IV 4-16 04-16 mL/hr, 500 it y of infusion 15:21: 16:01 mL, [place] 500 mL 00 :00 Intravenou Medical s, ONCE, 1 Branch dose, On 12/07/22 at 1030, Routine ibuprofen 3-0 Yes 400mg 400 mg, Univ ers (IBU) 4-16 Oral, TID ity of tablet 400 13:00: MEALS, [place] mg 00 First dose Medical on [facility] Branch 12/07/22 at 0800, Until Discontinu ed, Routine methocarbam 3-0 Yes 500mg 500 mg, Un piyush oL 4-16 Oral, QID, ity of (ROBAXIN) 13:00: First dose [place] tablet 500 00 on [facility] mg 12/07/22 at Branch 0800, Until Discontinu ed, Routine D5W 0.45% 3-0 2023- No 1000mL at 50 Univ ers NaCl -16 04-16 mL/hr, ity of (1/2NS) IV 12:30: 23:10 1,000 mL, [place] infusion 00 :22 IV Medical 1,000 mL Infusion, Branch CONTINUOUS , Starting on 12/07/22 at 0730, Until 12/07/22 at 1810, Routine ketorolac 2022- No 15mg 15 mg, Unive rs (TORADOL) 12-06 Slow IV ity of injection 05:00: 22:03 Push, Q6H, [place] 15 mg 00 :00 4 doses, Medical First dose Branch (after last reorder) on Thu12/06/22 at 0000, Last dose on Thu12/06/22 at 1800, Routine acetaminoph 2022- No 1000mg 1,000 mg, Univers en ADULT 12-06 IV ity of (OFIRMEV) 03:00: 19:31 Infusion, [place] injection 00 :00 at 400 Medical 1,000 mg mL/hr Branch Administer over 15 Minutes, Q8H, 3 doses, First dose (after last reorder) on Thu12/05/22 at 2200, Last dose on Thu12/06/22 at 1400, Routine
Indicatio n: Perioperat ector Patient NaCl 0.9% 2022-0 Yes 10mL 10 mL, Univer s (NS) 4-14 Slow IV ity of injection 12:03: Push, PRN, [place] 10 mL 43 Starting Medical on Thu Branch 12/05/22 at 0703, Until Discontinu ed, Routine, line maintenanc e lidocaine 2023-0 Yes 5mL 5 mL, Univers 1% (PF) 4-14 Subcutaneo ity of (XYLOCAINE) 12:03: us, PRN, [place] injection 5 43 Starting Medi mariusz mL on Thu Branch 12/05/22 at 0703, Until Discontinu ed, Routine, Local anesthesia NaCl 0.9% 2023-0 Yes 10mL 10 mL, Univer s (NS) 4-14 Slow IV ity of injection 12:03: Push, PRN, [place] 10 mL 43 Starting Medical on Thu Branch 12/05/22 at 0703, Until Discontinu ed, Routine, line maintenanc e lidocaine 2023-0 Yes 5mL 5 mL, Univers 1% (PF) 4-14 Subcutaneo ity of (XYLOCAINE) 12:03: us, PRN, [place] injection 5 43 Starting Medi mariusz mL on Thu Branch 12/05/22 at 0703, Until Discontinu ed, Routine, Local anesthesia ketorolac No 15mg 15 mg, Unive rs (TORADOL) 12-05 Slow IV ity of injection 05:00: 04:59 Push, Q6H, [place] 15 mg 00 :00 4 doses, Medical First dose Branch on Thu12/05/22 at 0000, Last dose on Thu12/05/22 at 1800, Routine methocarbam 2022- No 500mg 500 mg, U nivers oL 12-05 04-20 Intravenou ity of (ROBAXIN) 03:00: 02:59 s, Q8H, 18 [place] injection 00 :00 doses, Medical 500 mg First dose Branch on Thu12/04/22 at 2200, Last dose on Thu12/10/22 at 1400, Routine methocarbam 2022- No 500mg 500 mg, U nivers oL 12-05 04-16 Intravenou ity of (ROBAXIN) 03:00: 12:26 s, Q8H, 18 [place] injection 00 :17 doses, Medical 500 mg First dose Branch on Thu12/04/22 at 2200, Last dose on Thu12/10/22 at 1400, Routine acetaminoph No 1000mg 1,000 mg, Univers en ADULT 12-05 IV ity of (OFIRMEV) 03:00: 02:59 Infusion, [place] injection 00 :00 at 400 Medical 1,000 mg mL/hr Branch Administer over 15 Minutes, Q8H, 3 doses, First dose on Thu12/04/22 at 2200, Last dose on Thu12/05/22 at 1400, Routine
Indicatio n: Perioperat ector Patient ondansetron Yes 4mg 4 mg, Slow Univers (ZOFRAN 4-14 IV Push, ity of (PF)) 01:29: Q6HPRN, [place] injection 4 25 Nausea and Me dical mg Vomiting Branch (N/V), Starting on Thu12/04/22 at 2028
Do ses of ondansetro n 16 mg and above need to be administer ed via IV piggyback. For Dose >=24mg ECG monitoring is advisable.
ondansetron 0 Yes 4mg 4 mg, Slow Univers (ZOFRAN 4-14 IV Push, ity of (PF)) 01:29: Q6HPRN, [place] injection 4 25 Nausea and Me dical mg Vomiting Branch (N/V), Starting on [place] 12/04/22 at 2028
Do ses of ondansetro n 16 mg and above need to be administer ed via IV piggyback. For Dose >=24mg ECG monitoring is advisable.
gabapentin 0 Yes 300mg 300 mg, Uni vers (NEURONTIN) 4-14 Oral, TID, it y of capsule 300 01:00: First dose [place] mg 00 on [facility] Medical 12/04/22 at Branch 1999, Until Discontinu ed, Routine gabapentin 0 Yes 300mg 300 mg, Uni vers (NEURONTIN) 4-14 Oral, TID, it y of capsule 300 01:00: First dose [place] mg 00 on [facility] 12/04/22 at Branch 1999, Until Discontinu ed, Routine alvimopan 0 2022- No 12mg 12 mg, Unive rs (ENTEREG) 12-05 04-16 Oral, BID, ity of capsule 12 01:00: 00:59 4 doses, [place] mg 00 :00 First dose Medical on [facility] 12/04/22 at 1999, Last dose on [facility] 12/06/22 at 0800, Routine
Restricte d use approved by: BIA PEDRO R. - SURGERY/GE NERAL alvimopan 2022-0 2022- No 12mg 12 mg, Unive rs (ENTEREG) 12-05 04-15 Oral, BID, ity of capsule 12 01:00: 13:45 4 doses, [place] mg 00 :00 First dose Medical on [facility] 12/04/22 at 1999, Last dose on 12/06/22 at 0800, Routine
Restricte d use approved by: MAYELA [facility] R. - SURGERY/GE NERAL D5W 0.45% Yes 1000mL at 125 Univ ers NaCl 4-14 mL/hr, ity of (1/2NS) IV 00:30: 1,000 mL, [place] infusion 00 IV Medical 1,000 mL Infusion, Branch CONTINUOUS , Starting on [place] 12/04/22 at 1930, Until Discontinu ed, Routine D5W 0.45% 0 2022- No 1000mL at 125 Uni vers NaCl 4-14 04-16 mL/hr, ity of (1/2NS) IV 00:30: 12:26 1,000 mL, [place] infusion 00 :17 IV Medical 1,000 mL Infusion, Branch CONTINUOUS , Starting on [place] 12/04/22 at 1930, Until 12/07/22 at 0726, Routine HYDROcodone 2022-0 Yes 1{tbl} 1 tablet, Univers -acetaminop 4-13 Oral, ity of hen (NORCO 23:16: Q6HPRN, [place] 5) 5-325 mg 27 Starting Medi mariusz tablet 1 on [place] Branch tablet 12/04/22 at 1816, Until Discontinu ed, Routine, Pain (scale 4-6) HYDROcodone 2022-0 Yes 1{tbl} 1 tablet, Univers -acetaminop 4-13 Oral, ity of hen (NORCO 23:16: Q6HPRN, [place] 5) 5-325 mg 27 Starting Medi mariusz tablet 1 on [place] Branch tablet 12/04/22 at 1816, Until Discontinu ed, Routine, Pain (scale 4-6) HYDROmorpho 0 2022- No .5mg 0.5 mg, Un piyush ne 12-04 04-15 Slow IV ity of (DILAUDID) 23:16: 23:15 Push, [place] injection 03 :03 Q4HPRN, Medical 0.5 mg Starting Branch on [place] 12/04/22 at 1816, Until 12/06/22 at 1815, Routine, Pain (scale 7-10)
U se approved by (Faculty): GENERAL SURGERY
General surgeon approving: mayela HYDROmorpho 2022-0 2022- No .5mg 0.5 mg, Un piyush ne 12-04-15 Slow IV ity of (DILAUDID) 23:16: 23:15 Push, [place] injection 03 :03 Q4HPRN, Medical 0.5 mg Starting Branch on [place] 12/04/22 at 1816, Until 12/06/22 at 1815, Routine, Pain (scale 7-10)
U se approved by (Faculty): GENERAL SURGERY
General surgeon approving: mayela alvimopan 2022- No 12mg 12 mg, Unive rs (ENTEREG) 12-04 Oral, ity of capsule 12 13:00: 16:03 ONCE, 1 [place] mg 00 :00 dose, On Medical [place] Branch 12/04/22 at 0800, Routine
Restricte d use approved by: BIA PEDRO - SURGERY/GE NERAL magnesium 2022- No 4g 4 g, IV Univ ers sulfate in 12-04 Piggyback, it y of water 4 12:45: 16:33 at 25 [place] gram/50 mL 00 :00 mL/hr Medical (8 %) IV Administer Branc h Piggyback 4 over 120 g Minutes, ONCE, 1 dose, On [place] 12/04/22 at 0745, Routine NaCl 0.9% 2022- No 500mL at 999 Univ ers (NS) bolus 12-04 mL/hr, 500 it y of infusion 05:45: 06:03 mL, IV [place] 500 mL 00 :00 Piggyback, Medical ONCE, 1 Branch dose, On [place] 12/04/22 at 0045, Routine iron No 500mg 500 mg, IV Unive rs sucrose 12-02 Infusion, ity of (VENOFER) 18:45: 23:41 ONCE, [place] 500 mg in 00 :00 Administer Medi mariusz NaCl 0.9% over 4 Branch (NS) 250 mL Hours, On infusion 12/02/22 at 1345, For 1 dose cyanocobala 2022- No 1000ug 1,000 mcg, Univers min (DODEX) 12-02 Intramuscu i ty of injection 17:15: 18:15 lar, ONCE, [place] 1,000 mcg 00 :00 1 dose, On Medi mariusz Tue Branch 12/02/22 at 1215, Routine NaCl 0.9% 2022- No 1000mL at 125 Uni vers (NS) IV 12-02 mL/hr, IV ity of infusion 14:00: 23:16 Infusion, [place] 1,000 mL 00 :47 CONTINUOUS Medic al , Starting Branch on Thu12/02/22 at 0900, Until Thu12/04/22 at 1816, Routine magnesium 2022- No 4g 4 g, IV Univ ers sulfate in 12-02 Piggyback, it y of water 4 12:30: 16:39 at 25 [place] gram/50 mL 00 :00 mL/hr Medical (8 %) IV Administer Branc h Piggyback 4 over 120 g Minutes, ONCE, 1 dose, On Thu12/02/22 at 0730, Routine lactated 2022- No 500mL at 999 Unive rs ringers IV 12-02 mL/hr, 500 it y of infusion 06:00: 06:00 mL, [place] 500 mL 00 :00 Intravenou Medical s, ONCE, 1 Branch dose, On Thu12/02/22 at 0100, Routine loperamide No 4mg 4 mg, Unive rs (IMODIUM 12-01 Oral, QID, ity of A-D) 21:00: 15:30 First dose [place] capsule 4 00 :08 (after Medical mg last Branch modificati on) on Thu12/01/22 at 1600, Until Discontinu ed, Routine NaCl 0.9% 2022- No 1000mL at 75 Univ ers (NS) IV 12-01 mL/hr, IV ity of infusion 16:15: 13:50 Infusion, [place] 1,000 mL 00 :30 CONTINUOUS Medic al , Starting Branch on Thu12/01/22 at 1115, Until Thu12/02/22 at 0850, Routine sulfur 2022- No [id number] 5mL 5 mL, Unive rs hexafluorid 12-01 Intravenou i ty of e microsphr 15:00: 15:00 s, ONCE, 1 [place] (LUMASON) 00 :00 dose, On Medica l injection 5 Mon Branch mL 12/01/22 at 1000, Routine
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 : ISAÍAS HELM lactated 2022- No 500mL at 999 Unive rs ringers IV 4-10 04-10 mL/hr, 500 it y of infusion 06:00: 07:00 mL, [place] 500 mL 00 :00 Intravenou Medical s, ONCE, 1 Branch dose, On Thu12/01/22 at 0100, Routine lactated 2023-0 2023- No 500mL at 999 Unive rs ringers IV 10 04-10 mL/hr, 500 it y of infusion 02:15: 03:00 mL, [place] 500 mL 00 :00 Intravenou Medical s, ONCE, 1 Branch dose, On Thu11/30/22 at 2115, Routine diphenoxyla 2022-0 2022- No 1{tbl} 1 tablet, Univers te-atropine 11-30 Oral, Q6H, i ty of (LOMOTIL) 17:00: 15:30 First dose [place] 2.5-0.025 00 :08 (after Medical mg tablet 1 last Branch tablet modificati on) on Thu11/30/22 at 1200, Until Discontinu ed, Routine lactated 2022-0 2022- No 500mL at 999 Unive rs ringers IV 11-30 04-10 mL/hr, 500 it y of infusion 14:00: 01:00 mL, [place] 500 mL 00 :00 Intravenou Medical s, ONCE, 1 Branch dose, On Thu11/30/22 at 0900, Routine magnesium 2022- No 4g 4 g, IV Univ ers sulfate in 11-30 Piggyback, it y of water 4 13:45: 18:09 at 25 [place] gram/50 mL 00 :00 mL/hr Medical (8 %) IV Administer Branc h Piggyback 4 over 120 g Minutes, ONCE, 1 dose, On Thu11/30/22 at 0845, Routine NaCl 0.9% 3-0 3- No 1000mL at 150 Uni vers (NS) IV 11-30 04-10 mL/hr, IV ity of infusion 13:15: 16:14 Infusion, [place] 1,000 mL 00 :31 CONTINUOUS Medic al , Starting Branch on Thu11/30/22 at 0815, Until Thu12/01/22 at 1114, Routine NaCl 0.9% 3-0 2022- No 500mL at 999 Univ ers (NS) bolus 4-09 04-10 mL/hr, 500 it y of infusion 04:45: 01:00 mL, IV [place] 500 mL 00 :00 Piggyback, Medical ONCE, 1 Branch dose, On 11/29/22 at 2345, JOÃO NaCl 0.9% 2022-0 2022- No 1000mL at 75 Univ ers (NS) IV 11-29-09 mL/hr, IV ity of infusion 16:00: 13:02 Infusion, [place] 1,000 mL 00 :33 CONTINUOUS Medic al , Starting Branch on 11/29/22 at 1100, Until 11/30/22 at 0802, Routine diphenoxyla 2022-0 2022- No 1{tbl} 1 tablet, [facility] te-atropine 11-29 Oral, Q8H, i ty of (LOMOTIL) 03:00: 13:19 First dose [place] 2.5-0.025 00 :36 on Fri Medical mg tablet 1 11/28/22 at [facility] tablet 2200, Until Discontinu ed, Routine loperamide 2022-0 2022- No 2mg 2 mg, Unive rs (IMODIUM 11-28-10 Oral, QID, ity of A-D) 21:00: 18:21 First dose [place] capsule 2 00 :50 (after Medical mg last Branch modificati on) on Thu11/28/22 at 1600, Until Discontinu ed, Routine cholestyram 2022-0 2022- No 1{packe 1 Packet, [facility] ine 11-28 04-13 t} Oral, TID, ity of (QUESTRAN) 19:00: 15:30 First dose [place] 4 gram 00 :08 on Fri Medical packet 1 11/28/22 at Branch Packet 1400, Until Discontinu ed, Routine vitamin 2023-0 Yes 2000ug 2,000 mcg, Un piyush B-12 - Oral, ity of (CYANOCOBAL 14:00: DAILY, [place]) 00 First dose Medical tablet on Thu Branch 2,000 mcg 11/28/22 at 0900, Until Discontinu ed, Routine vitamin 2023-0 Yes 2000ug 2,000 mcg, Un piyush B-12 - Oral, ity of (CYANOCOBAL 14:00: DAILY, [place]) 00 First dose Medical tablet on Thu Branch 2,000 mcg 11/28/22 at 0900, Until Discontinu ed, Routine calcium 2022- No 1{tbl} 250 mg (1 Un piyush carbonate-v 11-28 tablet), ity of itamin D3 14:00: 15:30 Oral, [place] (OSCAL-250 00 :08 DAILY, Medical + D) 250 First dose Branc h mg-3.125 on Thu mcg (125 11/28/22 at unit) per 0900, tablet 250 Until mg Discontinu ed, Routine magnesium 2022- No 4g 4 g, IV Univ ers sulfate in 11-28 Piggyback, it y of water 4 11:00: 19:[address] [place] [address] gram/50 mL 00 :00 mL/hr Medical (8 %) IV Administer Branc h Piggyback 4 over 120 g Minutes, ONCE, 1 dose, On Thu11/28/22 at 0600, Routine heparin Yes 5000U 5,000 Univers (porcine) 4-07 Units, ity of injection 01:00: Subcutaneo [place] 5,000 Units 00 us, Q12H, Med ical First dose Branch on Thu11/27/22 at 1999, Until Discontinu ed, Routine heparin 0 Yes 5000U 5,000 Univers (porcine) 4-07 Units, ity of injection 01:00: Subcutaneo [place] 5,000 Units 00 us, Q12H, Med ical First dose Branch on Thu11/27/22 at 1999, Until Discontinu ed, Routine NaCl 0.9% No 1000mL at 100 Uni vers (NS) IV 11-27 mL/hr, IV ity of infusion 19:30: 15:46 Infusion, [place] 1,000 mL 00 :44 CONTINUOUS Medic al , Starting Branch on Thu11/27/22 at 1430, Until 11/29/22 at 1046, Routine sodium 2022- No 650mg 650 mg, Univer s bicarbonate 11-27 Oral, TID, i ty of (ANTACID 19:00: 15:30 First dose [place] (SODIUM 00 :08 on Thu Medical BICARBONATE 11/27/22 at [facility] )) tablet 1400, 650 mg Until Discontinu ed, Routine psyllium 2022- No 1{packe 1 Packet, [facility] 11[facility] t} Oral, TID, ity of (METAMUCIL 19:00: 13:19 First dose [place] (SUGAR 00 :59 on [place] [facility] FREE)) 3.4 11/27/22 at Bran ch gram oral 1400, powder Until packet 1 Discontinu Packet ed, Routine loperamide 2022- No 2mg 2 mg, Unive rs (IMODIUM 11-27 Oral, TID, ity of A-D) 19:00: 19:12 First dose [place] capsule 2 00 :04 on [place] Medical mg 11/27/22 at Branch 1400, Until Discontinu ed, Routine acetaminoph 2022- No 650mg 650 mg, U nivers en 11-27 Oral, ity of (TYLENOL) 17:59: 23:16 Q6HPRN, [place] tablet 650 12 :47 Starting Medic al mg on [place] Branch 11/27/22 at 1259, Until [place] 12/04/22 at 1816, Routine, Pain (scale 1-3) insulin 2022- No .1U/kg 6.99 Units U nivers regular 11-27 (0.1 ity of human 15:00: 15:55 Units/kg [place] (HUMULIN R) 00 :00 ?69.9 kg), Me dical injection IV Push, [place] 6.99 Units ONCE, 1 dose, On [facility] 11/27/22 at 1000, JOÃO
In dication for insulin: Hyperkalem ia- Please use the Insulin Protocol for Hyperkalem ia order set dextrose 50 2022- No 50mL 50 mL, Uni vers % in water 11-27 Slow IV ity o f (D50W) 15:00: 15:51 Push, [place] injection 00 :00 ONCE, 1 Medical 50 mL dose, On Branch [facility] 11/27/22 at 1000, JOÃO NaCl 0.9% 2022- No 1000mL at 9,999 U nivers (NS) IV 11-27- mL/hr, IV ity of infusion 15:00: 16:40 Infusion, [place] 1,000 mL 00 :00 ONCE, 1 Medical dose, On Branch [place] 11/27/22 at 1000, JOÃO albuterol 2022-0 2022- No 2.5mg 2.5 mg, Uni vers (PROVENTIL) 11-27 Inhalation i ty of 2.5 mg /3 15:00: 15:53 , ONCE, 1 [place] mL (0.083 00 :00 dose, On Medica l %) [place] 11/27/22 Branch nebulizer at 1000, solution STAT 2.5 mg calcium 2022-2022- No 2g 2 g, IV Univer s gluconate 2 11-27 Infusion, it y of g in NaCl 14:54: 15:30 at 200 [place] 100 mL 19 :08 mL/hr Medical (ISO-OSM) Administer Bran ch RTU IV over 30 infusion 2 Minutes, g PRN - SEE INSTRUCTIO NS, Starting on [place] 11/27/22 at 0954, Until [place] 12/04/22 at 1030, STAT, Potassium greater than or equal to 6.0 mEq/L with our without EKG changes magnesium 2022-0 Yes 400mg 400 mg, Univ ers oxide 11-23 Oral, ity of (MAG-OX 14:00: DAILY, [place] 400) tablet 00 First dose Me dical 400 mg on [place] Branch 11/23/22 at 0900, Until Discontinu ed, Routine magnesium 2022-0 2022- No 4g 4 g, IV Univ ers sulfate in 11-22 Piggyback, it y of water 4 12:15: 13:48 at 25 [place] gram/50 mL 00 :00 mL/hr Medical (8 %) IV Administer Branc h Piggyback 4 over 120 g Minutes, ONCE, 1 dose, On 11/22/22 at 0715, Routine lactated 3-0 Yes 1000mL at 200 Unive rs ringers IV 4-01 mL/hr, ity of infusion 11:30: 1,000 mL, [place] 1,000 mL 00 IV Medical Infusion, Branch CONTINUOUS , Starting on 11/22/22 at 0630, Until Discontinu ed, Routine psyllium 2022-0 Yes [id number] 1{packe Take 1 Univers husk 3.4 4-01 t} Packet by ity of gram oral 00:00: mouth in [place] powder 00 the Medical packet morning Branch and 1 Packet at noon and 1 Packet in the evening. psyllium 2022-0 Yes [id number] 1{packe Take 1 Univers husk 3.4 4-01 t} Packet by ity of gram oral 00:00: mouth in [place] powder 00 the Medical packet morning Branch and 1 Packet at noon and 1 Packet in the evening. psyllium 2022-0 Yes [id number] 1{packe Take 1 Univers husk 3.4 4-01 t} Packet by ity of gram oral 00:00: mouth in [place] powder 00 the Medical packet morning Branch and 1 Packet at noon and 1 Packet in the evening. psyllium 2022-0 Yes [id number] 1{packe Take 1 Univers husk 3.4 4-01 t} Packet by ity of gram oral 00:00: mouth in [place] powder 00 the Medical packet morning Branch and 1 Packet at noon and 1 Packet in the evening. psyllium 2022-0 2023- No [id number] 1{packe Take 1 [facility] husk 3.4 4-01 04-18 t} Packet by ity o f gram oral 00:00: 00:00 mouth in [place] powder 00 :00 the Medical packet morning Branch and 1 Packet at noon and 1 Packet in the evening. lactated 2022-0 2022- No 1000mL at 125 Univ ers ringers IV 11-2101 mL/hr, ity of infusion 23:00: 11:22 1,000 mL, [place] 1,000 mL 00 :09 IV Medical Infusion, Branch CONTINUOUS , Starting on Thu11/21/22 at 1800, Until 11/22/22 at 0622, Routine lactated 2022-0 2022- No 1000mL at 250 Univ ers ringers IV 11-21 mL/hr, ity of infusion 17:45: 22:46 1,000 mL, [place] 1,000 mL 00 :24 IV Medical Infusion, Branch CONTINUOUS , Starting on Thu11/21/22 at 1245, Until Thu11/21/22 at 1746, Routine magnesium 2022-0 2022- No 2g 2 g, IV Univ ers sulfate in 11-21 Piggyback, it y of water 2 08:00: 10:07 Administer [place] gram/50 mL 00 :00 over 60 Medica l (4 %) Minutes, Branch infusion 2 ONCE, 1 g dose, On Thu11/21/22 at 0300, Routine iopamidol 2022- No [id number] 500mL 500 mL, Univers (ISOVUE 11-20 Rectal, ity of 370-500 mL) 20:30: 20:25 ONCE, 1 [place] injection 00 :00 dose, On Medica l 500 mL [place] Branch 11/20/22 at 1530, Routine lactated 2022- No 1000mL at 150 Univ ers ringers IV 11-20 mL/hr, ity of infusion 15:45: 17:31 1,000 mL, [place] 1,000 mL 00 :01 IV Medical Infusion, Branch CONTINUOUS , Starting on Thu11/20/22 at 1045, Until Thu11/21/22 at 1231, Routine vitamin 0 Yes 2000ug 2,000 mcg, Un pi[facility] B-12 11-20 Oral, ity of (CYANOCOBAL 14:00: DAILY, [place] 00 First dose Medical tablet on [place] Branch 2,000 mcg 11/20/22 at 0900, Until Discontinu ed, Routine psyllium 0 Yes 1{packe 1 Packet, U nivers husk -30 t} Oral, TID, ity of (METAMUCIL 13:00: First dose [place] (SUGAR 00 (after Medical FREE)) 3.4 last Branch gram oral modificati powder on) on [place] packet 1 11/20/22 at Packet 0800, Until Discontinu ed, Routine sodium 0 2022- No 650mg 650 mg, Univer s bicarbonate 11-20 Oral, QID, i ty of (ANTACID 11:15: 12:40 [place] (SODIUM 00 :25 on [place] Medical BICARBONATE 11/20/22 at Br anch )) tablet 0615, 650 mg Until Discontinu ed, Routine heparin 2022-0 Yes 5000U 5,000 [facility] (porcine) 30 Units, ity of injection 01:00: Subcut[place]o [place] 5,000 Units 00 us, Q12H, Med ical First dose Branch on Thu11/19/22 at 2000, Until Discontinu ed, Routine psyllium 2022- No 1{packe 1 Packet, [facility] husk 11-20 t} Oral, BID, ity of (METAMUCIL 01:00: 12:40 First dose [place] (SUGAR 00 :40 on Thu Medical FREE)) 3.4 11/19/22 at [facility] [place] gram oral 1999, powder Until packet 1 Discontinu Packet ed, Routine NaCl 0.9% 2022- No 1000mL at 75 Univ ers (NS) IV 11-19 mL/hr, IV ity of infusion 22:30: 12:44 Infusion, [place] 1,000 mL 00 :21 CONTINUOUS Medic al , Starting Branch on Thu11/19/22 at 1730, Until [place] 11/20/22 at 0744, Routine NaCl 0.9% 2022- No 1000mL at 100 Uni vers (NS) IV 11-19 mL/hr, IV ity of infusion 20:30: 21:23 Infusion, [place] 1,000 mL 00 :41 CONTINUOUS Medic al , Starting Branch on Thu11/19/22 at 1530, Until Thu11/19/22 at 1623, Routine loperamide Yes 2mg 2 mg, Univer s (IMODIUM 11-19 Oral, TID, ity o f A-D) 19:00: First dose [place] capsule 2 00 on Thu Medical mg 11/19/22 at Branch 1400, Until Discontinu ed, Routine acetaminoph Yes 650mg 650 mg, Un piyush en 11-19 Oral, ity of (TYLENOL) 18:35: Q6HPRN, [place] tablet 650 12 Starting Medic al mg on Thu Branch 11/19/22 at 1335, Until Discontinu ed, Routine, Pain (scale 1-3) ondansetron 2022- No 4mg 4 mg, Slow [facility] (ZOFRAN 11-19 IV Push, ity of (PF)) 16:15: 16:05 ONCE, 1 [place] injection 4 00 :00 dose, On Medi mariusz mg Thu Branch 11/19/22 at 1115, JOÃO ketorolac 2022-0 2022- No 30mg 30 mg, Unive rs (TORADOL) 11-19 Slow IV ity of injection 16:00: 16:06 Push, [place] 30 mg 00 :00 ONCE, 1 Medical dose, On Branch Thu11/19/22 at 1100, Routine loperamide 2022-0 Yes 4mg 4 mg, Univer s (IMODIUM 3-16 Oral, TID, ity o f A-D) 19:00: First dose [place] capsule 4 00 (after Medical mg last Branch modificati on) on Thu11/06/22 at 1400, Until Discontinu ed, Routine magnesium 2022-0 2022- No 400mg 400 mg, Uni vers oxide 11-06 Oral, ity of (MAG-OX 16:00: 17:46 ONCE, 1 [place] 400) tablet 00 :00 dose, On Medi mariusz 400 mg [place] Branch 11/06/22 at 1100, Routine magnesium 2022-0 2022- No 2g 2 g, IV Univ ers sulfate in 11-06 Piggyback, it y of water 2 12:00: 15:04 Administer [place] gram/50 mL 00 :00 over 60 Medica l (4 %) Minutes, Branch infusion 2 ONCE, 1 g dose, On Thu11/06/22 at 0700, Routine lactated 2022-0 2022- No 500mL at 999 Unive rs ringers IV 11-06 mL/hr, 500 it y of infusion 01:30: 01:07 mL, [place] 500 mL 00 :25 Intravenou Medical s, ONCE, 1 Branch dose, On Thu11/05/22 at 2030, Routine sodium 3-0 Yes [id number] 650mg Take 1 Univ ers bicarbonate 3-16 tablet by ity of 650 mg 00:00: mouth in [place] tablet 00 the Medical morning Branch and 1 tablet at noon and 1 tablet in the evening. sodium 2023-0 Yes [id number] 650mg Take 1 Univ ers bicarbonate 3-16 tablet by ity of 650 mg 00:00: mouth in [place] tablet 00 the Medical morning Branch and 1 tablet at noon and 1 tablet in the evening. sodium 2023-0 Yes [id number] 650mg Take 1 Univ ers bicarbonate 3-16 tablet by ity of 650 mg 00:00: mouth in [place] tablet 00 the Medical morning Branch and 1 tablet at noon and 1 tablet in the evening. sodium 2023-0 Yes [id number] 650mg Take 1 Univ ers bicarbonate 3-16 tablet by ity of 650 mg 00:00: mouth in [place] tablet 00 the Medical morning Branch and 1 tablet at noon and 1 tablet in the evening. sodium 2023-0 Yes [id number] 650mg Take 1 Univ ers bicarbonate 3-16 tablet by ity of 650 mg 00:00: mouth in [place] tablet 00 the Medical morning Branch and 1 tablet at noon and 1 tablet in the evening. sodium 2023-0 Yes [id number] 650mg Take 1 Univ ers bicarbonate 3-16 tablet by ity of 650 mg 00:00: mouth in [place] tablet 00 the Medical morning Branch and 1 tablet at noon and 1 tablet in the evening. sodium 2023-0 Yes [id number] 650mg Take 1 Univ ers bicarbonate 3-16 tablet by ity of 650 mg 00:00: mouth in [place] tablet 00 the Medical morning Branch and 1 tablet at noon and 1 tablet in the evening. sodium 2023-0 Yes [id number] 650mg Take 1 Univ ers bicarbonate 3-16 tablet by ity of 650 mg 00:00: mouth in [place] tablet 00 the Medical morning Branch and 1 tablet at noon and 1 tablet in the evening. sodium 2023-0 Yes [id number] 650mg Take 1 Univ ers bicarbonate 3-16 tablet by ity of 650 mg 00:00: mouth in [place] tablet 00 the Medical morning Branch and 1 tablet at noon and 1 tablet in the evening. sodium 2023-0 Yes [id number] 650mg Take 1 Univ ers bicarbonate 3-16 tablet by ity of 650 mg 00:00: mouth in [place] tablet 00 the Medical morning Branch and 1 tablet at noon and 1 tablet in the evening. sodium 2023-0 Yes [id number] 650mg Take 1 Univ ers bicarbonate 3-16 tablet by ity of 650 mg 00:00: mouth in [place] tablet 00 the Medical morning Branch and 1 tablet at noon and 1 tablet in the evening. sodium 2023-0 Yes [id number] 650mg Take 1 Univ ers bicarbonate 3-16 tablet by ity of 650 mg 00:00: mouth in [place] tablet 00 the Medical morning Branch and 1 tablet at noon and 1 tablet in the evening. sodium 2023-0 Yes [id number] 650mg Take 1 Univ ers bicarbonate 3-16 tablet by ity of 650 mg 00:00: mouth in [place] tablet 00 the Medical morning Branch and 1 tablet at noon and 1 tablet in the evening. sodium 2023-0 Yes [id number] 650mg Take 1 Univ ers bicarbonate 3-16 tablet by ity of 650 mg 00:00: mouth in [place] tablet 00 the Medical morning Branch and 1 tablet at noon and 1 tablet in the evening. sodium 2023-0 Yes [id number] 650mg Take 1 Univ ers bicarbonate 3-16 tablet by ity of 650 mg 00:00: mouth in [place] tablet 00 the Medical morning Branch and 1 tablet at noon and 1 tablet in the evening. sodium 2023-0 Yes [id number] 650mg Take 1 Univ ers bicarbonate 3-16 tablet by ity of 650 mg 00:00: mouth in [place] tablet 00 the Medical morning Branch and 1 tablet at noon and 1 tablet in the evening. sodium 2023-0 Yes [id number] 650mg Take 1 Univ ers bicarbonate 3-16 tablet by ity of 650 mg 00:00: mouth in [place] tablet 00 the Medical morning Branch and 1 tablet at noon and 1 tablet in the evening. loperamide 2022- No 2mg 2 mg, Unive rs (IMODIUM 11-0516 Oral, TID, ity of A-D) 19:00: 14:31 First dose [place] capsule 2 00 :21 (after Medical mg last Branch modificati on) on Thu11/05/22 at 1400, Until Discontinu ed, Routine COVID-19 Yes 1{each} 0.3 mL (1 U nivers vaccine,mRN 3-15 Each), ity of A PF 14:40: Intramuscu [place] ([employer]) 30 56 lar, Medical mcg/0.3 mL ONCE-PRIOR [facility] injection TO 0.3 mL DISCHARGE, 1 dose, Starting on Thu11/05/22 at 0940, Until Discontinu ed, JOÃO, Give vaccine prior to discharge< br>Is this the patient's 1st dose or 2nd dose of COVID vaccine? First Dose cyanocobala 2022-0 2022- No 1000ug 1,000 mcg, Univers min (DODEX) 11-05-18 Intramuscu i ty of injection 14:00: 13:59 lar, [place] 1,000 mcg 00 :00 DAILY, 3 Medica l doses, Branch First dose on Thu11/05/22 at 0900, Last dose on Thu11/07/22 at 0900, Routine psyllium 2022-0 Yes 1{packe 1 Packet, U nivers husk 3-15 t} Oral, TID, ity of (METAMUCIL 13:00: First dose [place] (SUGAR 00 (after Medical FREE)) 3.4 last Branch gram oral modificati powder on) on Thu packet 1 11/05/22 at Packet 0800, Until Discontinu ed, Routine loperamide 2022-0 2022- No 4mg 4 mg, Unive rs (IMODIUM -05 11-15 Oral, BID, ity of A-D) 13:00: 14:34 First dose [place] capsule 4 00 :16 (after Medical mg last Branch modificati on) on Thu11/05/22 at 0800, Until Discontinu ed, Routine midodrine 2022-0 2022- No 10mg 10 mg, Unive rs (PROAMATINE 11-05-15 Oral, TID, i ty of ) tablet 10 13:00: 14:32 First dose [place] mg 00 :28 (after Medical last Branch modificati on) on Thu11/05/22 at 0800, Until Discontinu ed, Routine NaCl 0.9% 3-0 2022- No 1000mL at 200 Uni vers (NS) IV 3- 03-15 mL/hr, IV ity of infusion 12:30: 18:24 Infusion, [place] 1,000 mL 00 :06 ONCE, 1 Medical dose, On Branch Thu11/05/22 at 0730, Routine NaCl 0.9% 3-0 2022- No 500mL at 999 Univ ers (NS) bolus -05 11-15 mL/hr, 500 it y of infusion 05:45: 06:00 mL, IV [place] 500 mL 00 :00 Piggyback, Medical ONCE, 1 Branch dose, On Thu11/05/22 at 0045, STAT loperamide 2022-0 3- No 2mg 2 mg, Unive rs (IMODIUM -05 11-15 Oral, BID, ity of A-D) 01:00: 11:55 First dose [place] capsule 2 00 :51 (after Medical mg last Branch modificati on) on Thu11/04/22 at 1999, Until Discontinu ed, Routine psyllium 2022- 202- No 1{packe 1 Packet, [facility] 11-05 03-15 t} Oral, BID, ity of (METAMUCIL 01:00: 11:55 First dose [place] (SUGAR 00 :51 (after Medical FREE)) 3.4 last Branch gram oral modificati powder on) on Thu packet 1 11/04/22 at Packet 1999, Until Discontinu ed, Routine calcium 2022-0 Yes [id number] 250mg Take 1 Uni vers carbonate-v 3-15 tablet by ity of itamin D3 00:00: mouth in [place] [address] the Medical mg-3.125 morning. Branch mcg (125 unit) per tablet loperamide 2022-0 Yes [id number] 2mg Take 1 U nivers 2 mg 3-15 capsule by ity of capsule 00:00: mouth in [place] [address] the Medical morning Branch and 1 capsule at noon and 1 capsule in the evening. calcium 2022-0 Yes [id number] 250mg Take 1 Uni vers carbonate-v 3-15 tablet by ity of itamin D3 00:00: mouth in [place] [address] the Medical mg-3.125 morning. Branch mcg (125 unit) per tablet loperamide 2022-0 Yes [id number] 2mg Take 1 U nivers 2 mg 3-15 capsule by ity of capsule 00:00: mouth in [place] [address] the [facility] morning Branch and 1 capsule at noon and 1 capsule in the evening. calcium 2022-0 Yes [id number] 250mg Take 1 Uni vers carbonate-v 3-15 tablet by ity of itamin D3 00:00: mouth in [place] [address] 00 the Medical mg-3.125 morning. Branch mcg (125 unit) per tablet loperamide 2022-0 Yes [id number] 2mg Take 1 U nivers 2 mg 3-15 capsule by ity of capsule 00:00: mouth in [place] [address] the Medical morning Branch and 1 capsule at noon and 1 capsule in the evening. calcium 2022-0 Yes [id number] 250mg Take 1 Uni vers carbonate-v 3-15 tablet by ity of itamin D3 00:00: mouth in [place] [address] the Medical mg-3.125 morning. Branch mcg (125 unit) per tablet loperamide 3-0 Yes [id number] 2mg Take 1 U nivers 2 mg 3-15 capsule by ity of capsule 00:00: mouth in [place] [address] the Medical morning Branch and 1 capsule at noon and 1 capsule in the evening. calcium 2023-0 Yes [id number] 250mg Take 1 Uni vers carbonate-v 3-15 tablet by ity of itamin D3 00:00: mouth in [place] [address] the Medical mg-3.125 morning. Branch mcg (125 unit) per tablet loperamide 3-0 Yes [id number] 2mg Take 1 U nivers 2 mg 3-15 capsule by ity of capsule 00:00: mouth in [place] [address] the [facility] morning Branch and 1 capsule at noon and 1 capsule in the evening. calcium 2022-0 Yes [id number] 250mg Take 1 Uni vers carbonate-v 3-15 tablet by ity of itamin D3 00:00: mouth in [place] [address] the Medical mg-3.125 morning. Branch mcg (125 unit) per tablet loperamide 3-0 Yes [id number] 2mg Take 1 U nivers 2 mg 3-15 capsule by ity of capsule 00:00: mouth in [place] [address] the [facility] morning Branch and 1 capsule at noon and 1 capsule in the evening. calcium 3-0 Yes [id number] 250mg Take 1 Uni vers carbonate-v 3-15 tablet by ity of itamin D3 00:00: mouth in [place] [address] the Medical mg-3.125 morning. Branch mcg (125 unit) per tablet loperamide 3-0 Yes [id number] 2mg Take 1 U nivers 2 mg 3-15 capsule by ity of capsule 00:00: mouth in [place] [address] the Medical morning Branch and 1 capsule at noon and 1 capsule in the evening. calcium 2023-0 Yes [id number] 250mg Take 1 Uni vers carbonate-v 3-15 tablet by ity of itamin D3 00:00: mouth in [place] [address] the Medical mg-3.125 morning. Branch mcg (125 unit) per tablet calcium 2023-0 Yes [id number] 250mg Take 1 Uni vers carbonate-v 3-15 tablet by ity of itamin D3 00:00: [place] 00 the Medical mg-3.125 morning. Branch mcg (125 unit) per tablet calcium 2022-0 Yes [id number] 250mg Take 1 Uni vers carbonate-v 3-15 tablet by ity of itamin D3 00:00: mouth in [place] 250 00 the Medical mg-3.125 morning. Branch mcg (125 unit) per tablet calcium 2022-0 Yes [id number] 250mg Take 1 Uni vers carbonate-v 3-15 tablet by ity of itamin D3 00:00: mouth in [place] 250 00 the Medical mg-3.125 morning. Branch mcg (125 unit) per tablet calcium 2022-0 Yes [id number] 250mg Take 1 Uni vers carbonate-v 3-15 tablet by ity of itamin D3 00:00: mouth in [place] 250 00 the Medical mg-3.125 morning. Branch mcg (125 unit) per tablet calcium 2022-0 Yes [id number] 250mg Take 1 Uni vers carbonate-v 3-15 tablet by ity of itamin D3 00:00: mouth in [place] 00 the Medical mg-3.125 morning. Branch mcg (125 unit) per tablet calcium 2022-0 Yes [id number] 250mg Take 1 Uni vers carbonate-v 3-15 tablet by ity of itamin D3 00:00: mouth in [place] 00 the Medical mg-3.125 morning. Branch mcg (125 unit) per tablet calcium 2022-0 Yes [id number] 250mg Take 1 Uni vers carbonate-v 3-15 tablet by ity of itamin D3 00:00: mouth in [place] 00 the Medical mg-3.125 morning. Branch mcg (125 unit) per tablet calcium 2022-0 Yes [id number] 250mg Take 1 Uni vers carbonate-v 3-15 tablet by ity of itamin D3 00:00: mouth in [place] 00 the Medical mg-3.125 morning. Branch mcg (125 unit) per tablet calcium 2022-0 Yes [id number] 250mg Take 1 Uni vers carbonate-v 3-15 tablet by ity of itamin D3 00:00: mouth in [place] 250 00 the Medical mg-3.125 morning. Branch mcg (125 unit) per tablet loperamide 2022- No [id number] 2mg Take 1 Univers 2 mg 3-15 04-18 capsule by ity of capsule 00:00: 00:00 mouth in [place] 00 :00 the Medical morning Branch and 1 capsule at noon and 1 capsule in the evening. midodrine 2022- No [id number] 10mg Take 1 U nivers 10 mg 3-15 03-15 tablet by ity of tablet 00:00: 00:00 mouth in [place] 00 :00 the Medical morning Branch and 1 tablet at noon and 1 tablet in the evening. loperamide 2022- No [id number] 4mg Take 2 Univers 2 mg 3-15 03-15 capsules ity of capsule 00:00: 00:00 by mouth [place] 00 :00 in the Medical morning Branch and 2 capsules in the evening. psyllium 2022- No [id number] 1{packe Take 1 [facility] husk 3.4 3-15 03-14 t} Packet by ity o f gram oral 00:00: 00:00 mouth in [place] powder 00 :00 the Medical packet morning. [place] loperamide 2022- No [id number] 2mg Take 1 [facility] 2 mg 3-15 -14 capsule by ity of capsule 00:00: 00:00 mouth [place] 00 :00 every Medical morning. [place] cyanocobala 2022- No [id number] 1000ug Take 1 mL Univers min 1,000 -15 -14 by ity of mcg/mL 00:00: 00:00 Intramuscu [place] injection 00 :00 lar route Medic al in the morning. NaCl 0.9% No 1000mL at 200 Uni vers (NS) IV 3-14 03-14 mL/hr, IV ity of infusion 22:30: 22:11 Infusion, [place] 1,000 mL 00 :00 ONCE, 1 Medical dose, On Thu11/04/22 at 1730, Routine sodium Yes 650mg 650 mg, Univers bicarbonate 3-14 Oral, TID, it y of (ANTACID 21:45: First dose [place] (SODIUM 00 thu Medical BICARBONATE 11/04/22 at Br anch )) tablet 1645, 650 mg Until Discontinu ed, Routine loperamide Yes 2mg 2 mg, Univer s (IMODIUM 11-04 Oral, ity of A-D) 16:48: Q4HPRN, [place] capsule 2 01 Starting Medica l mg on 11/04/22 at 1148, Until Discontinu ed, Routine, Diarrhea NaCl 0.9% 2022- No 1000mL at 200 Uni vers (NS) IV 11-04 mL/hr, IV ity of infusion 16:45: 19:36 Infusion, [place] 1,000 mL 00 :00 ONCE, 1 Medical dose, On Branch Thu11/04/22 at 1145, Routine vitamin 2022- No 1000ug 1,000 mcg, U nivers B-12 11-04 Oral, ity of (CYANOCOBAL 14:00: 16:02 DAILY, [place]) 00 :56 First dose Medical tablet on 1,000 mcg 11/04/22 at 0900, Until Discontinu ed, Routine midodrine 2022- No 5mg 5 mg, Univer s (PROAMATINE 11-04 Oral, TID, i ty of ) tablet 5 13:00: 11:20 First dose [place] mg 00 :10 on 11/04/22 at Branch 0800, Until Discontinu ed, Routine magnesium 2022- No 4g 4 g, IV Univ ers sulfate in 11-04 Piggyback, it y of water 4 13:00: 15:17 at 25 [place] gram/50 mL 00 :00 mL/hr Medical (8 %) IV Administer Branc h Piggyback 4 over 120 g Minutes, ONCE, 1 dose, On Thu11/04/22 at 0800, Routine sodium 2022- No IV [facility] bicarbonate 11-04 Infusion, it y of 75 mEq in 12:30: 15:59 CONTINUOUS [place] NaCl 0.45% 00 :06 , Starting Med ical (1/2NS) on Thu 1,000 mL IV 11/04/22 at Solution 0730, Until Thu11/04/22 at 1059, 1,000 mL, at 200 mL/hr vitamin 2022-0 Yes [id number] 2000ug Take 2 Un piyush B-12 1,000 3-14 tablets by ity of mcg tablet 00:00: mouth in [place] 00 the Medical morning. Branch vitamin 2023-0 Yes [id number] 1999ug Take 2 Un piyush B-12 1,000 3-14 tablets by ity of mcg tablet 00:00: mouth in [place] 00 the Medical morning. Branch vitamin 2023-0 Yes [id number] 1999ug Take 2 Un piyush B-12 1,000 3-14 tablets by ity of mcg tablet 00:00: mouth in [place] 00 the Medical morning. Branch vitamin 2023-0 Yes [id number] 1999ug Take 2 Un piyush B-12 1,000 3-14 tablets by ity of mcg tablet 00:00: mouth in [place] 00 the Medical morning. Branch vitamin 2023-0 Yes [id number] 1999ug Take 2 Un piyush B-12 1,000 3-14 tablets by ity of mcg tablet 00:00: mouth in [place] 00 the Medical morning. Branch vitamin 2023-0 Yes [id number] 1999ug Take 2 Un piyush B-12 1,000 3-14 tablets by ity of mcg tablet 00:00: mouth in [place] 00 the Medical morning. Branch vitamin 2023-0 Yes [id number] 1999ug Take 2 Un piyush B-12 1,000 3-14 tablets by ity of mcg tablet 00:00: mouth in [place] 00 the Medical morning. Branch vitamin 2023-0 Yes [id number] 1999ug Take 2 Un piyush B-12 1,000 3-14 tablets by ity of mcg tablet 00:00: mouth in [place] 00 the Medical morning. Branch vitamin 2023-0 Yes [id number] 1999ug Take 2 Un piyush B-12 1,000 3-14 tablets by ity of mcg tablet 00:00: mouth in [place] 00 the Medical morning. Branch vitamin 2023-0 Yes [id number] 1999ug Take 2 Un piyush B-12 1,000 3-14 tablets by ity of mcg tablet 00:00: mouth in [place] 00 the Medical morning. Branch vitamin 2023-0 Yes [id number] 1999ug Take 2 Un piyush B-12 1,000 3-14 tablets by ity of mcg tablet 00:00: mouth in [place] 00 the Medical morning. Branch vitamin 2023-0 Yes [id number] 1999ug Take 2 Un piyush B-12 1,000 3-14 tablets by ity of mcg tablet 00:00: mouth in [place] 00 the Medical morning. Branch vitamin 3-0 Yes [id number] 1999ug Take 2 Un piyush B-12 1,000 3-14 tablets by ity of mcg tablet 00:00: mouth in [place] 00 the Medical morning. Branch vitamin 3-0 Yes [id number] 1999ug Take 2 Un piyush B-12 1,000 3-14 tablets by ity of mcg tablet 00:00: mouth in [place] 00 the Medical morning. Branch vitamin 3-0 Yes [id number] 1999ug Take 2 Un piyush B-12 1,000 3-14 tablets by ity of mcg tablet 00:00: mouth in [place] 00 the Medical morning. Branch vitamin 3-0 Yes [id number] 1999ug Take 2 Un piyush B-12 1,000 3-14 tablets by ity of mcg tablet 00:00: mouth in [place] 00 the Medical morning. Branch vitamin 3-0 Yes [id number] 1999ug Take 2 Un piyush B-12 1,000 3-14 tablets by ity of mcg tablet 00:00: mouth in [place] 00 the Medical morning. Branch midodrine 5 2022-0 2022- No [id number] 5mg Take 1 Univers mg tablet 3-14 -15 tablet by ity of 00:00: 00:00 mouth in [place] 00 :00 the Medical morning Branch and 1 tablet at noon and 1 tablet in the evening. loperamide 2022-0 2022- No [id number] 2mg Take 1 Univers 2 mg 3-14 -15 capsule by ity of capsule 00:00: 00:00 mouth in [place] 00 :00 the Medical morning Branch and 1 capsule in the evening. psyllium 2022-0 2022- No [id number] 1{packe Take 1 Univers husk 3.4 3-14 03-15 t} Packet by ity o f gram oral 00:00: 00:00 mouth in [place] powder 00 :00 the Medical packet morning Branch and 1 Packet in the evening. NaCl 0.9% 2022-0 2022- No 1000mL at 200 Uni vers (NS) IV 3-13 03-14 mL/hr, IV ity of infusion 22:45: 04:00 Infusion, [place] 1,000 mL 00 :00 ONCE, 1 Medical dose, On Branch Thu11/03/22 at 1745, Routine NaCl 0.9% 2022- No 1000mL at 150 Uni vers (NS) IV 11-03 mL/hr, IV ity of infusion 15:30: 19:36 Infusion, [place] 1,000 mL 00 :00 ONCE, 1 Medical dose, On Branch [facility] 11/03/22 at 1030, Routine calcium 2022-0 Yes 1{tbl} 250 mg (1 Uni vers carbonate-v 11-03 tablet), ity of itamin D3 14:00: Oral, [place] (OSCAL-250 00 DAILY, Medical + D) 250 First dose Branc h mg-3.125 on Thu mcg (125 11/03/22 at unit) per 0900, tablet 250 Until mg Discontinu ed, Routine KCL Yes 20meq 20 mEq, Univers (KLOR-CON 11-03 Oral, ity of M20) tablet 14:00: DAILY, [place] 20 mEq 00 First dose Medical on [facility] 11/03/22 at 0900, Until Discontinu ed, Routine psyllium 2022- No 1{packe 1 Packet, Univers husk 11-03 t} Oral, ity of (METAMUCIL 14:00: 19:07 DAILY, [place] (SUGAR 00 :06 First dose Medical FREE)) 3.4 on [facility] gram oral 11/03/22 at powder 0900, packet 1 Until Packet Discontinu ed, Routine loperamide 2022- No 2mg 2 mg, Unive rs (IMODIUM 11-03 Oral, ity of A-D) 12:52: 16:49 Q4HPRN, [place] capsule 2 54 :00 Starting Medica l mg on Thu11/03/22 at 0752, Until Thu11/04/22 at 1149, Routine, Diarrhea NaCl 0.9% 2022- No 500mL at 999 Univ ers (NS) bolus 11-03 mL/hr, 500 it y of infusion 06:30: 06:00 mL, IV [place] 500 mL 00 :00 Piggyback, Medical ONCE, 1 Branch dose, On Thu11/03/22 at 0130, STAT sodium 2022- No IV [facility] bicarbonate 11-0213 Infusion, it y of 75 mEq in 23:30: 14:38 CONTINUOUS [place] NaCl 0.45% 00 :07 , Starting Med ical (1/2NS) on [place] Branch 1,000 mL IV 11/02/22 at Solution 1830, Until Thu11/03/22 at 0938, 1,000 mL, at 150 mL/hr enoxaparin 0 Yes 30mg 30 mg, Unive rs (LOVENOX) 11-02 Subcutaneo ity of injection 22:00: [place], DAILY, [place] 30 mg 00 First dose Medical (after Branch last modificati on) on [place] 11/02/22 at 1700, Until Discontinu ed, Routine lactated 2022- No 1000mL at 999 Univ ers ringers IV 11-02-12 mL/hr, ity of infusion 19:00: 22:36 1,000 mL, [place] 1,000 mL 00 :15 IV Medical Infusion, Branch CONTINUOUS , Starting on [place] 11/02/22 at 1400, Until [place] 11/02/22 at 1736, Routine ondansetron Yes 4mg 4 mg, Slow Univers (ZOFRAN 11-02 IV Push, ity of (PF)) 17:04: [place], [place] injection 4 54 Starting Medi mariusz mg on [facility] 11/02/22 at 1204, Until Discontinu ed, Routine, Nausea and Vomiting (N/V) acetaminoph Yes 650mg 650 mg, Un piyush en 11-02 Oral, ity of (TYLENOL) 17:04: [place], [place] tablet 650 40 Starting Medic al mg on [facility] 11/02/22 at 1204, Until Discontinu ed, Routine, Pain (scale 1-3) lactated 2022- No 1000mL at 999 Univ ers ringers IV 11-02 03-12 mL/hr, ity of infusion 14:45: 17:07 1,000 mL, Javi as 1,000 mL 00 :00 Intravenou Medic al s, ONCE, 1 Branch dose, On [place] 11/02/22 at 0945, Routine NaCl 0.9% 0 2022- No 1000mL at 999 Uni vers (NS) bolus 3-12 03-12 mL/hr, ity of infusion 13:45: 14:35 1,000 mL, [place] as 1,000 mL 00 :00 IV Medical Infusion, Branch ONCE, 1 dose, On 11/02/22 at 0845, JOÃO iopamidol 2022-2022- No [id number] 80mL 80 mL, Univers (ISOVUE 10-20 Intravenou ity o f 370-500 mL) 03:20: 03:30 s, ONCE, 1 [place] injection 00 :00 dose, On Medica l 80 mL [place] 10/19/22 at 2130, Routine NaCl 0.9% 2022- No 1000mL at 999 Uni vers (NS) bolus 10-20 mL/hr, ity of infusion 02:30: 03:04 1,000 mL, [place] as 1,000 mL 00 :00 IV Medical Infusion, Branch ONCE, 1 dose, On [place] 10/19/22 at 2030, JOÃO ondansetron 2022- No 4mg 4 mg, Slow Univers (ZOFRAN 10-20 IV Push, ity of (PF)) 01:45: 01:51 ONCE, 1 [place] injection 4 00 :00 dose, On Medi mariusz mg [place] Branch 10/19/22 at 1945, JOÃO morpHINE (4 0 2022- No 4mg 4 mg, Slow Univers mg/mL) 10-20 IV Push, ity of injection 4 01:45: 01:51 ONCE, 1 [place] mg 00 :00 dose, On Medical [place] 10/19/22 at 1945, STAT ciprofloxac 2022-0 Yes [id number] 500mg Take 1 Univers in HCl 500 2-26 tablet by ity of mg tablet 00:00: mouth in 00 the Medical morning Branch and 1 tablet in the evening. loperamide 2022-0 Yes [id number] 2mg Take 1 U nivers 2 mg 2-26 capsule by ity of capsule 00:00: mouth 2 00 (two) Medical times Branch daily as needed for Diarrhea. ciprofloxac 3-0 Yes [id number] 500mg Take 1 Univers in HCl 500 2-26 tablet by ity of mg tablet 00:00: mouth in a s 00 the Medical morning Branch and 1 tablet in the evening. loperamide 3-0 Yes [id number] 2mg Take 1 U nivers 2 mg 2-26 capsule by ity of capsule 00:00: mouth 2 00 (two) Medical times Branch daily as needed for Diarrhea. ciprofloxac 2023-0 Yes [id number] 500mg Take 1 Univers in HCl 500 2-26 tablet by ity of mg tablet 00:00: mouth in a s 00 the Medical morning Branch and 1 tablet in the evening. loperamide 2023-0 Yes [id number] 2mg Take 1 U nivers 2 mg 2-26 capsule by ity of capsule 00:00: mouth (two) Medical times Branch daily as needed for Diarrhea. ciprofloxac 3-0 Yes [id number] 500mg Take 1 Univers in HCl 500 2-26 tablet by ity of mg tablet 00:00: mouth in the Medical morning Branch and 1 tablet in the evening. loperamide 2022-0 Yes [id number] 2mg Take 1 U nivers 2 mg 2-26 capsule by ity of capsule 00:00: mouth ([facility]) Medical times Branch daily as needed for Diarrhea. ciprofloxac 3-0 3- No [id number] 500mg Take 1 Univers in HCl 500 2-26 03-12 tablet by ity of mg tablet 00:00: 00:00 mouth in [place] 00 :00 the Medical morning Branch and 1 tablet in the evening. loperamide 3-0 3- No [id number] 2mg Take 1 Univers 2 mg 2-26 03-12 capsule by ity of capsule 00:00: 00:00 mouth 2 [place] 00 :00 (two) Medical times Branch daily as needed for Diarrhea. loperamide 2023-0 2023- No [id number] 2mg Take 1 Univers 2 mg 2-26 02-26 capsule by ity of capsule 00:00: 00:00 mouth 2 [place] 00 :00 (two) Medical times Branch daily as needed for Diarrhea. ciprofloxac 3-0 3- No [id number] 500mg Take 1 Univers in HCl 500 2-26 02-26 tablet by ity of mg tablet 00:00: 00:00 mouth in [place] 00 :00 the Medical morning Branch and 1 tablet in the evening. Do all this for 7 days. ciprofloxac 2022- No [id number] 500mg Take 1 Univers in HCl 500 10-19 tablet by ity of mg tablet 00:00: 00:00 mouth in [place] 00 :00 the Medical morning Branch and 1 tablet in the evening. loperamide 2022- No [id number] 2mg Take 1 Univers 2 mg 10-19 capsule by ity of capsule 00:00: 00:00 mouth 2 [place] 00 :00 (two) Medical times Branch daily as needed for Diarrhea. loperamide Yes 4mg 4 mg, Univer s [...] 40 mEq 00 :00 dose, On Medical [facility] Branch 05/21/22 at 1030, Routine magnesium 2021- No 1g 1 g, IV Univ ers sulfate in 05-21 Piggyback, it y of D5W 1 15:30: 16:17 ONCE, 1 [place] gram/100 mL 00 :00 dose, On [facility] RTU IV [facility] Branch Piggyback 05/21/22 at g 1030, Administer over 60 Minutes, 100 mL potassium 2021- No 15mmol 15 mmol, U nivers phosphate 05-21 IV ity of 15 mmol in 15:30: 18:54 Piggyback, [place] NaCl 0.9% 00 :00 ONCE, 1 Medical (NS) 150 mL dose, On [facility] ch piggyback Thu05/21/22 at 1030, 150 mL NaCl 0.9% Yes 1000mL at 50 Unive rs (NS) IV 05-21 mL/hr, IV ity of infusion 14:45: Infusion, [...] on Thu Medical FREE)) 3.4 05/20/22 at [facility] gram oral 1999, powder Until packet 1 Discontinu Packet ed, Routine loperamide 2021- No 2mg 2 mg, Unive rs (IMODIUM 05-21 Oral, BID, ity of A-D) 01:00: 19:34 First dose [place] capsule 2 00 :32 on Thu Medical mg 05/20/22 at [place] 1999, Until Discontinu ed, Routine ferrous Yes [id number] 325mg Take 1 Un piyush sulfate 325 9-28 tablet by ity of mg (65 mg 00:00: [facility] the Medical tablet morning Branch and 1 tablet at noon and 1 tablet in the evening. Take with meals. loperamide Yes [id number] 2mg Take 1 U nivers 2 mg 9-28 capsule by ity of capsule 00:00: mouth 2 [place] [address] ([facility]) Medical times [place] daily as needed for Diarrhea (Increase ostomy output). ferrous Yes [id number] 325mg Take 1 Un piyush sulfate 325 9-28 tablet by ity of mg (65 mg 00:00: mouth [place] iron[place] 00 the Medical tablet morning Branch and 1 tablet at noon and 1 tablet in the evening. Take with meals. loperamide Yes [id number] 2mg Take 1 U nivers 2 mg 9-28 capsule by ity of capsule 00:00: mouth 2 [place] (two) Medical times [place] daily as needed for Diarrhea (Increase ostomy output). ferrous Yes [id number] 325mg Take 1 Un piyush sulfate 325 9-28 tablet by ity of mg (65 mg 00:00: mouth in [place] iron) 00 the Medical tablet morning Branch and 1 tablet at noon and 1 tablet in the evening. Take with meals. loperamide Yes [id number] 2mg Take 1 U nivers 2 mg 9-28 capsule by ity of capsule 00:00: mouth 2 (two) Medical times Branch daily as needed for Diarrhea (Increase ostomy output). ferrous Yes [id number] 325mg Take 1 Un piyush sulfate 325 9-28 tablet by ity of mg (65 mg 00:00: mouth [place] iron) 00 the Medical tablet morning Branch and 1 tablet at noon and 1 tablet in the evening. Take with meals. loperamide Yes [id number] 2mg Take 1 U nivers 2 mg 9-28 capsule by ity of capsule 00:00: mouth (two) Medical times Branch daily as needed for Diarrhea (Increase ostomy output). ferrous Yes [id number] 325mg Take 1 Un piyush sulfate 325 9-28 tablet by ity of mg (65 mg 00:00: mouth in [place] iron) 00 the Medical tablet morning Branch and 1 tablet at noon and 1 tablet in the evening. Take with meals. loperamide Yes [id number] 2mg Take 1 U nivers 2 mg 9-28 capsule by ity of capsule 00:00: mouth 2 (two) Medical times Branch daily as needed for Diarrhea (Increase ostomy output). ferrous Yes [id number] 325mg Take 1 Un piyush sulfate 325 9-28 tablet by ity of mg (65 mg 00:00: mouth [place] iron) 00 the Medical tablet morning Branch and 1 tablet at noon and 1 tablet in the evening. Take with meals. loperamide Yes [id number] 2mg Take 1 U nivers 2 mg 9-28 capsule by ity of capsule 00:00: mouth 2 00 (two) Medical times Branch daily as needed for Diarrhea (Increase ostomy output). ferrous 3- No [id number] 325mg Take 1 U nivers sulfate 325 9-28 03-12 tablet by it y of mg (65 mg 00:00: 00:00 mouth in [place] iron) 00 :00 the Medical [facility] morning Branch and 1 tablet at noon and 1 tablet in the evening. Take with meals. loperamide 2022- No [id number] 2mg Take 1 Univers 2 mg 05-21 capsule by ity of capsule 00:00: 00:00 mouth 2 [place] 00 :00 (two) [facility] daily as needed for Diarrhea (Increase ostomy output). sodium 2021- No [id number] 650mg Take 1 Uni vers bicarbonate 05-21 tablet by it y of 650 mg 00:00: 04:59 mouth in [place] tablet 00 :00 the Medical morning and 1 tablet at noon and 1 tablet in the evening. Do all this for 7 days. KCL 20 mEq 2021- No [id number] 20meq Take 1 Univers tablet 05-21 tablet by ity of 00:00: 04:59 mouth in [place] 00 :00 the Medical morning for 7 days. sodium 2021- No [id number] 650mg Take 1 Uni vers bicarbonate 05-21 tablet by it y of 650 mg 00:00: 04:59 mouth in [place] tablet 00 :00 the Medical morning and 1 tablet at noon and 1 tablet in the evening. Do all this for 7 days. KCL 20 mEq 2021- No [id number] 20meq Take 1 Univers tablet 05-21 tablet by ity of 00:00: 04:59 mouth in [place] 00 :00 the [facility] for 7 days. KCL 2021- No 40meq 40 mEq, Univers (KLOR-CON 05-20 Oral, ity of M20) tablet 21:00: 21:19 ONCE, 1 [place] 40 mEq 00 :00 dose, On Medical [facility] 05/20/22 at 1600, Routine ferrous Yes 325mg 325 mg, Univer s sulfate 05-20 Oral, TID ity of tablet 325 17:00: MEALS, [place] mg 00 First dose Medical on [facility] 05/20/22 at 1200, Until Discontinu ed, Routine enoxaparin Yes 30mg 30 mg, Unive rs (LOVENOX) 05-20 Subcutaneo ity of injection 14:00: us, DAILY, [place] 30 mg 00 First dose Medical on Thu05/20/22 at 0900, Until Discontinu ed, Routine sodium 2021- No 150meq IV Univers bicarbonate 05-20 Infusion, it y of 150 mEq in 14:00: 03:43 at 100 [place] D5W 1,000 00 :00 mL/hr, 150 Medi mariusz mL IV mEq, ONCE, Branch infusion 1 dose, On Thu05/20/22 at 0900, Routine iron No 300mg 300 mg, IV Unive rs sucrose 05-20 Infusion, ity of (VENOFER) 14:00: 17:39 ONCE, [place] 300 mg in 00 :00 Administer Medi mariusz NaCl 0.9% over 2.5 Branch (NS) 250 mL Hours, On infusion Thu05/20/22 at 0900, For 1 dose KCL No 40meq 40 mEq, Univers (KLOR-CON 05-20 Oral, ity of M20) tablet 14:00: 13:20 ONCE, 1 [place] 40 mEq 00 :00 dose, On Medical Thu [place] 05/20/22 at 0900, Routine sodium Yes 1300mg [...] Until Thu05/21/22 at 0938, Routine NaCl 0.9% 2021- No 1000mL at 999 Uni vers (NS) bolus 05-20 mL/hr, ity of infusion 08:00: 10:06 1,000 mL, [place] as 1,000 mL 00 :47 IV Medical [place], Branch ONCE, 1 dose, On Thu05/20/22 at 0300, JOÃO ondansetron Yes 4mg 4 mg, Slow Univers (ZOFRAN 05-20 IV Push, ity of (PF)) 07:18: Q6HPRN, [place] injection 4 55 Starting Medi mariusz mg on Thu Branch 05/20/22 at 0218, Until Discontinu ed, Routine, Nausea and Vomiting (N/V) iopamidol 2021- No [id number] 65mL 65 mL, Univers (ISOVUE 05-20 Intravenou ity o f 370-500 mL) 04:15: 04:15 s, ONCE, 1 [place] injection 00 :00 dose, On Medica l 65 mL Mon Branch 05/19/22 at 2315, Routine NaCl 0.9% 2021- No 1000mL at 999 Uni vers (NS) IV 05-20 mL/hr, ity of infusion 02:30: 07:11 Intravenou [place] 1,000 mL 00 :42 s, Medical CONTINUOUS Branch , Starting on Thu05/19/22 at 2130, Until Thu05/20/22 at 0211, Routine No known No No known Unive rs medications 05-20 medication it y of 01:04: s [address] Branch dicyclomine 2021- No 20mg 20 mg, Uni vers (BENTYL) 04-10 08-18 Intramuscu ity of injection 05:45: 04:45 lar, ONCE, [place] 20 mg 00 :00 1 dose, On Medical [place] Branch 04/10/22 at 0045, Routine NaCl 0.9% 0 2021- No 1000mL at 999 Uni vers (NS) bolus 04-10-18 mL/hr, ity of infusion 03:45: 05:07 1,000 mL, [place] 1,000 mL 00 :00 IV Medical Infusion, Branch ONCE, 1 dose, On Thu04/09/22 at 2245, JOÃO No known 2021-0 No No known Unive rs medications -18 medication it y of 00:06: s [address] No known 0 No No known Unive rs medications -18 medication it y of 00:06: s [address] magnesium 0 2021- No 4g 4 g, IV Univ ers sulfate in 04-08 Piggyback, it y of water 4 13:45: 14:14 ONCE, 1 [place] gram/50 mL 00 :00 dose, On Medic al (8 %) IV [facility] Branch Piggyback 4 04/08/22 at g 0845, Routine enoxaparin 0 Yes 40mg 40 mg, Unive rs (LOVENOX) [...] 1 last Branch tablet modificati on) on Thu04/06/22 at 1200, Until Discontinu ed, Routine lactated 2021-0 2021- No 1000mL at 100 Univ ers [place]ers IV 04-06 08-15 mL/hr, ity of infusion 15:00: 20:30 1,000 mL, [place] 1,000 mL 00 :32 IV Medical Infusion, Branch CONTINUOUS , Starting on Thu04/06/22 at 1000, Until Thu04/07/22 at 1530, Routine magnesium 2021-0 2021- No 6g 6 g, IV Univ ers sulfate 6 g 04-06 Piggyback, i ty of in NaCl 15:00: 18:10 ONCE, 1 [place] 0.9% (NS) 00 :00 dose, On Medica l [facility] 04/06/22 at 1000, Administer over 90 Minutes, 50 mL loperamide Yes 4mg 4 mg, Univer s (IMODIUM 04-06 Oral, BID, ity o f A-D) 14:00: First dose [place] capsule 4 00 on [place] Medical mg 04/06/22 at Branch 0900, Until Discontinu ed, Routine loperamide 2021- No 4mg 4 mg, Unive rs (IMODIUM 04-06 Oral, ity of A-D) 12:30: 14:00 TIDPRN, 8 [place] capsule 4 00 :56 doses, Medical mg Starting Branch on [place] 04/06/22 at 0730, Until [place] 04/06/22 at 0900, Routine, Diarrhea NaCl 0.9% 2021- No 1000mL at 999 Uni vers (NS) bolus 04-06 mL/hr, ity of infusion 12:30: 11:38 1,000 mL, [place] 1,000 mL 00 :51 [facility] ON[facility], 1 dose, On [place] 04/06/22 at 0730, STAT magnesium 2021- No 2g 2 g, IV Univ ers sulfate in 04-06 Piggyback, it y of water 2 11:30: 11:37 Administer [place] gram/50 mL 00 :00 over 60 Medica l (4 %) Minutes, Branch infusion 2 ONCE, 1 g dose, On [place] 04/06/22 at 0630, Routine midodrine 2021- No 10mg 10 mg, Unive rs (PROAMATINE 04-06 Oral, ity of ) tablet 10 05:45: 05:16 ONCE, 1 [place] mg 00 :00 dose, On [facility] 04/06/22 at 0045, Routine NaCl 0.9% 2021- No 1000mL at 999 Uni vers (NS) bolus 04-06 mL/hr, ity of infusion 04:30: 03:39 1,000 mL, [place] 1,000 mL 00 :00 [facility] Branch ONCE, 1 dose, On 04/05/22 at 2330, STAT NaCl 0.9% 2021- No 1000mL at 999 Uni vers (NS) bolus 04-06 mL/hr, ity of infusion 03:30: 02:32 1,000 mL, [place] 1,000 mL 00 :34 IV Medical Piggyback, Branch ONCE, 1 dose, On [facility] 04/05/22 at 2230, STAT loperamide 2021- No [...] )) tablet modificati 650 mg on) on [facility] 04/05/22 at 1400, Until Discontinu ed, Routine psyllium 0 Yes 1{packe 1 Packet, U nivers husk 04-04 t} Oral, ity of (METAMUCIL 21:00: DAILY, [place] (SUGAR 00 First dose Medical FREE)) 3.4 [...] 100mg 100 mg, Univ ers (COLACE) 04-03 08-14 Oral, BID, ity of capsule 100 01:00: 03:30 First dose [place] mg 00 :00 on Thu Medical 04/02/22 at Branch 2000, Until Discontinu ed, Routine heparin 2021- No 5000U 5,000 Univers (porcine) 04-0314 Units, ity of injection 01:00: 13:56 Subcutaneo [...] ity o f (PF)) 22:45: 21:59 Push, [place] injection 00 :00 ONCE, 1 Medical 50 mcg dose, On Branch Thu04/02/22 at 1745, Routine ondansetron Yes 4mg 4 mg, Slow Univers (ZOFRAN 8-10 IV Push, ity of (PF)) 22:06: Q6HPRN, [place] injection 4 55 Starting Medi mariusz mg on Thu Branch 04/02/22 at 1706, Until Discontinu ed, Routine, Nausea and Vomiting (N/V) acetaminoph Yes 650mg 650 mg, Un piyush en 8-10 Oral, ity of (TYLENOL) 22:06: Q6HPRN, [place] tablet 650 46 Starting Medic al mg [...] 8-10 medication it y of 18:45: s [place] [address] Medical Branch ferrous 2021- No Altered 325mg [...] tablet intestinal 60 days ostomy ferrous 2021- [id number] 325mg QD Take 1 Momin rris sulfate 325 02-20 tablet by He alth mg (65 mg 00:00: 23:59 mouth iron) 00 :00 daily for tablet 60 days ferrous 2021- [id number] 325mg QD Take 1 Momin rris sulfate 325 02-20 tablet by He alth mg (65 mg 00:00: 23:59 mouth iron) 00 :00 daily for tablet 60 days ferrous No Altered 325mg QD Take [...] intestinal ostomy loperamide 2021- No Altered 4mg Q.21361287 Take 2 [place] (IMODIUM) 2 02-20-30 bowel [id number] capsules Health mg capsule 00:00: 23:59 elimination [...] intestinal ostomy loperamide 2021- No Altered 4mg Q.87790057 Take 2 [place] (IMODIUM) 2 02-20-30 bowel [id number] capsules Health mg capsule 00:00: 23:59 elimination [...] intestinal ostomy loperamide 2021- No Altered 4mg Q.73372663 Take 2 [place] (IMODIUM) 2 02-20-30 bowel [id number] capsules Health mg capsule 00:00: 23:59 elimination [...] intestinal ostomy loperamide 2021- No Altered 4mg Q.22689812 Take 2 [place] (IMODIUM) 2 02-20-30 bowel [id number] capsules Health mg capsule 00:00: 23:59 elimination [...] intestinal ostomy loperamide 2021- No Altered 4mg Q.55528193 Take 2 [place] (IMODIUM) 2 02-20-30 bowel [id number] capsules Health mg capsule 00:00: 23:59 elimination [...] intestinal ostomy loperamide 2021- No Altered 4mg Q.15478416 Take 2 [place] (IMODIUM) 2 02-20 bowel [id number] capsules Health mg capsule 00:00: 23:59 elimination [...] intestinal ostomy loperamide 2021- No Altered 4mg Q.28482587 Take 2 [place] (IMODIUM) 2 02-20-30 bowel [id number] capsules Health mg capsule 00:00: 23:59 elimination [...] intestinal ostomy loperamide 2021- No Altered 4mg Q.08116174 Take 2 [place] (IMODIUM) 2 02-20 bowel [id number] capsules Health mg capsule 00:00: 23:59 elimination 3D by mouth 3 00 :00 due to times intestinal daily ostomy (before meals) for 30 days tamsulosin 2021- No Acute .4mg Take 1 Compa ris (FLOMAX) 02-20 kidney capsule by He alth 0.4 mg 00:00: 23:59 injury mouth capsule 00 :00 every evening for 30 days psyllium 2021- No [id number] 1{packe Take 1 [place] (METAMUCIL) 02-20 t} Packet by Misael alth 6 gram PwPk 00:00: 23:59 mouth 00 :00 loperamide 2021- No [id number] 4mg Q.20210370 Take 2 [place] (IMODIUM) 2 02-20 [id number] capsules Health mg capsule 00:00: 23:59 3D by mouth 3 00 :00 times daily (before meals) for 30 days tamsulosin 2021- No [id number] .4mg Take 1 [place] (FLOMAX) 02-20 [id number] capsule by He alth 0.4 mg 00:: 23:59 mouth capsule 00 :00 every evening for 30 days psyllium 2021- No [id number] 1{packe Take 1 [place] (METAMUCIL) 02-20 t} Packet by Misael alth 6 gram PwPk 00:00: 23:59 mouth 00 :00 loperamide 2021- No [id number] 4mg Q.31987316 Take 2 [place] (IMODIUM) 2 02-20 [id number] capsules Health mg capsule 00:00: 23:59 3D by mouth 3 00 :00 times daily (before meals) for 30 days tamsulosin 2021- No [id number] .4mg Take 1 [place] (FLOMAX) 02-20 [id number] capsule by He alth 0.4 mg 00:: 23:59 mouth capsule 00 :00 every evening for 30 days psyllium 2021- No Altered 1{packe Take 1 [place] (METAMUCIL) 02-20 07-30 bowel t} Packet by H ealth 6 gram PwPk 00:00: 23:59 elimination mouth 00 :00 due to intestinal ostomy loperamide 2021- No Altered 4mg Q.60297588 Take 2 [place] (IMODIUM) 2 02-20-30 bowel [id number] capsules Health mg capsule 00:00: 23:59 elimination [...] intestinal ostomy loperamide 2021- No Altered 4mg Q.66719244 Take 2 [place] (IMODIUM) 2 02-20-30 bowel [id number] capsules Health mg capsule 00:00: 23:59 elimination [...] intestinal ostomy loperamide 2021- No Altered 4mg Q.15653432 Take 2 [place] (IMODIUM) 2 02-20-30 bowel [id number] capsules Health mg capsule 00:00: 23:59 elimination [...] intestinal ostomy loperamide 2021- No Altered 4mg Q.26481486 Take 2 [place] (IMODIUM) 2 02-20 bowel [id number] capsules Health mg capsule 00:00: 23:59 elimination [...] intestinal ostomy loperamide 2021- No Altered 4mg Q.18198945 Take 2 [place] (IMODIUM) 2 02-20-30 bowel [id number] capsules Health mg capsule 00:00: 23:59 elimination 3D by mouth 3 00 :00 due to times intestinal daily ostomy (before meals) for 30 days tamsulosin 2021- No Acute .4mg Take 1 Cmopa ris (FLOMAX) 02-20-30 kidney capsule by He alth 0.4 mg 00:00: 23:59 injury mouth capsule 00 :00 every evening for 30 days psyllium 2021- No Altered 1{packe Take 1 [place] (METAMUCIL) 02-2030 bowel t} Packet by H ealth 6 gram PwPk 00:00: 23:59 elimination mouth 00 :00 due to intestinal ostomy loperamide 2021- No Altered 4mg Q.15297287 Take 2 [place] (IMODIUM) 2 02-20 bowel [id number] capsules Health mg capsule 00:00: 23:59 elimination [...] intestinal ostomy loperamide 2021- No Altered 4mg Q.49258510 Take 2 [place] (IMODIUM) 2 02-20 bowel [id number] capsules Health mg capsule 00:00: 23:59 elimination [...] intestinal ostomy loperamide 2021- No Altered 4mg Q.41552097 Take 2 [place] (IMODIUM) 2 02-20-30 bowel [id number] capsules Health mg capsule 00:00: 23:59 elimination [...] intestinal ostomy loperamide 2021- No Altered 4mg Q.43460199 Take 2 [place] (IMODIUM) 2 02-20-30 bowel [id number] capsules Health mg capsule 00:00: 23:59 elimination [...] intestinal ostomy loperamide 2021- No Altered 4mg Q.91160924 Take 2 [place] (IMODIUM) 2 02-20-30 bowel [id number] capsules Health mg capsule 00:00: 23:59 elimination [...] intestinal ostomy loperamide 2021- No Altered 4mg Q.74912522 Take 2 [place] (IMODIUM) 2 02-2030 bowel [id number] capsules Health mg capsule 00:00: 23:59 elimination [...] intestinal ostomy loperamide 2021- No Altered 4mg Q.39108615 Take 2 [place] (IMODIUM) 2 02-20 bowel [id number] capsules Health mg capsule 00:00: 23:59 elimination [...] intestinal ostomy loperamide 2021- No Altered 4mg Q.62776434 Take 2 [place] (IMODIUM) 2 02-20-30 bowel [id number] capsules Health mg capsule 00:00: 23:59 elimination [...] intestinal ostomy loperamide 2021- No Altered 4mg Q.44696870 Take 2 [place] (IMODIUM) 2 02-20 bowel [id number] capsules Health mg capsule 00:00: 23:59 elimination [...] intestinal ostomy loperamide 2021- No Altered 4mg Q.64678045 Take 2 [place] (IMODIUM) 2 02-20 bowel [id number] capsules Health mg capsule 00:00: 23:59 elimination [...] intestinal ostomy loperamide 2021- No Altered 4mg Q.41397500 Take 2 [place] (IMODIUM) 2 6-03-22 bowel [id number] capsules Health mg capsule 00:00: 23:59 elimination 3D by mouth 3 00 :00 due to times intestinal daily ostomy (before meals) for 30 days tamsulosin No Acute .4mg Take 1 Compa ris (FLOMAX) 02-20 kidney capsule by He alth 0.4 mg 00:00: 23:59 injury mouth capsule 00 :00 every evening for 30 days enoxaparin 2021- No 40mg 40 mg Harri s (LOVENOX) 02-19 (0.565 Health injection 09:00: 13:55 mg/kg), 40 mg 00 :54 Subcutaneo us, EVERY 24 HOURS, 30 doses, First dose on Thu02/19/22 at 0900, Last dose on Thu03/20/22 at 0900, STAT ferrous 2021- No 325mg QD 325 mg [place] sulfate 325 02-19 (4.59 Health mg (65 mg 09:00: 13:55 mg/kg), iron) 00 :54 Oral, tablet 325 DAILY, 30 mg doses, First dose on Thu02/19/22 at 0900, Last dose on Thu03/20/22 at 0900, STAT cyanocobala No 1000ug QD 1,000 mcg [place] min 02-19 (14.1 Health (vitamin 09:00: 13:55 mcg/kg), B-12) 1,000 00 :54 Oral, mcg tablet DAILY, 30 1,000 mcg doses, First dose on Thu02/19/22 at 0900, Last dose on Thu03/20/22 at 0900, STAT ascorbic 2021- No 250mg QD 250 mg Harri s acid 02-19 (3.53 Health (vitamin C) 09:00: 13:55 mg/kg), tablet 250 00 :54 Oral, mg DAILY, 30 doses, First dose on Thu02/19/22 at 0900, Last dose on Thu03/20/22 at 0900, STAT loperamide 2021- No 4mg Q.09578919 4 mg [place] (IMODIUM) 02-19 [id number] (0.0565 Health capsule 4 07:30: 13:55 3D mg/kg), mg 00 :54 Oral, 3 TIMES DAILY BEFORE MEALS, 90 doses, First dose on Thu02/19/22 at 0730, Last dose on Thu03/20/22 at 1730, STAT saline 2021- No 10mL 10 mL [place] flush 10 mL 02-18 (0.141 Healt h 21:18: 13:55 mL/kg), 00 :54 Midline, EVERY 12 HOURS, 60 doses, First dose on Thu02/18/22 at 2118, Last dose on Thu03/20/22 at 0900, STAT saline 2021- No 10mL 10 mL [place] flush 10 mL 02-18 (0.141 Healt h 21:17: 13:55 mL/kg), 13 :54 Midline, PRN, Starting on Thu02/18/22 at 2117, Until Thu02/20/22 at 1355, Line Care, STAT tamsulosin No .4mg 0.4 mg Alex is (FLOMAX) 02-18 (0.90036 Health capsule 0.4 21:00: 13:55 mg/kg), mg 00 :54 Oral, EVERY EVENING, 30 doses, First dose on Thu02/18/22 at 2100, Last dose on Thu03/19/22 at 2100, STAT psyllium 2021- No 1{packe Q.5D 1 Packet, [place] (METAMUCIL) 02-18 t} Oral, 2 Heal th oral packet 21:00: 13:55 TIMES 1 Packet 00 :54 DAILY, 60 doses, First dose on Thu02/18/22 at 2100, Last dose on Thu03/20/22 at 0900, STAT lactated 2021- No at 150 [place] 02-18 mL/hr, Health infusion 20:25: 11:22 Intravenou 00 :41 s, CONTINUOUS , Starting on Thu02/18/22 at 2025, Until Thu02/20/22 at 1122 acetaminoph No 650mg 650 mg Momin rris en 02-18 (9.18 Health (TYLENOL) 20:23: 13:55 mg/kg), tablet 650 55 :54 Oral, mg EVERY 6 HOURS PRN, Starting on Thu02/18/22 at 2023, Until Thu02/20/22 at 1355, Mild pain (1-3), Headache, STAT lactated 2021- No Intravenou Momin rris [place] 02-18 06-28 s, STAT Health 1,000 mL 19:07: 21:00 infusion - 00 :00 bolus lactated 2021- No Intravenou Momin rris [place] 02-18 06-28 s, STAT Health 1,000 mL 14:11: 19:00 infusion - 00 :00 bolus nutritional Yes Malnutritio 1{packa Take 1 Lynne [...] 3 oral liquid 00 times daily nutritional 202-0 Yes [id number] 1{packa Take 1 [place] supplemment 6-21 4102 ge} Package by Misael bertrand (BOOST) 00:00: mouth 3 oral liquid 00 times daily nutritional 202-0 Yes [id number] 1{packa Take 1 Lynne supplemment 6-21 4102 ge} Package by Misael bertrand (BOOST) 00:00: mouth 3 oral liquid 00 times daily nutritional 202-0 Yes [id number] 1{packa Take 1 Lynne supplemment 6-21 4102 ge} Package by Misael bertrand (BOOST) 00:00: mouth 3 oral liquid 00 times daily [...] 3 oral liquid 00 times daily nutritional 202-0 Yes Malnutritio 1{packa Take 1 Lynne supplemment [...] 3 oral liquid 00 times daily psyllium 2-0 2- No Altered 1{packe Take 1 Lynne (METAMUCIL) 6-21 06-30 bowel t} Packet by [facility] 6 gram PwPk 00:00: 00:00 elimination mouth 00 :00 due to intestinal ostomy psyllium 2021- No Altered 1{packe Take 1 Lynne (METAMUCIL) 02-11-30 bowel t} Packet by [facility] 6 gram PwPk 00:00: 00:00 elimination mouth 00 :00 due to intestinal ostomy psyllium 2021- No Altered 1{packe Take 1 Lynne (METAMUCIL) 02-11-30 bowel t} Packet by [facility] 6 gram PwPk 00:00: 00:00 elimination mouth 00 :00 due to intestinal ostomy psyllium 2021- No Altered 1{packe Take 1 Lynne (METAMUCIL) 02-1130 bowel t} Packet by [facility] 6 gram PwPk 00:00: 00:00 elimination mouth 00 :00 due to intestinal ostomy psyllium 2021- No Altered 1{packe Take 1 Lynne (METAMUCIL) 02-1130 bowel t} Packet by [facility] 6 gram PwPk 00:00: 00:00 elimination mouth 00 :00 due to intestinal ostomy psyllium 2021- No Altered 1{packe Take 1 Lynne (METAMUCIL) 02-11-30 bowel t} Packet by [facility] 6 gram PwPk 00:00: 00:00 elimination mouth 00 :00 due to intestinal ostomy psyllium 2021- No Altered 1{packe Take 1 Lynne (METAMUCIL) 02-1130 bowel t} Packet by [facility] 6 gram PwPk 00:00: 00:00 elimination mouth 00 :00 due to intestinal ostomy psyllium 2021- No Altered 1{packe Take 1 Lynne (METAMUCIL) 02-11-30 bowel t} Packet by [facility] 6 gram PwPk 00:00: 00:00 elimination mouth 00 :00 due to intestinal ostomy psyllium 2021- No [id number] 1{packe Take 1 Lynne (METAMUCIL) 02-11-30 t} Packet by [facility] 6 gram PwPk 00:00: 00:00 mouth 00 :00 psyllium 2021-0 2021- No Altered 1{packe Take [...] Lynne (METAMUCIL) 02-1130 bowel t} Packet by [facility] 6 gram PwPk 00:00: 00:00 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 psyllium 2021- No Altered 1{packe Take 1 Lynne (METAMUCIL) 02-1130 bowel t} Packet by [facility] 6 gram PwPk 00:00: 00:00 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 psyllium 2021- No Altered 1{packe Take 1 Lynne (METAMUCIL) 02-1130 bowel t} Packet by [facility] 6 gram PwPk 00:00: 00:00 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 psyllium 2021- No Altered 1{packe Take 1 Lynne (METAMUCIL) 02-1130 bowel t} Packet by [facility] 6 gram PwPk 00:00: 00:00 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 psyllium 2021- No Altered 1{packe Take 1 Lynne (METAMUCIL) 02-1130 bowel t} Packet by [facility] 6 gram PwPk 00:00: 00:00 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 psyllium 2021- No Altered 1{packe Take 1 Lynne (METAMUCIL) 02-1130 bowel t} Packet by [facility] 6 gram PwPk 00:00: 00:00 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 lactated 2021- No at 125 Lynne Ringers 6-19 06-20 mL/hr, Health infusion 09:30: 09:29 Intravenou 00 :00 s, CONTINUOUS , Starting on 02/09/22 at 0930, Until 02/10/22 at 0929 lactated 2021- No at 125 Lynne Ringers 02-08 mL/hr, Health infusion 10:30: 10:29 Intravenou 00 :00 s, CONTINUOUS , Starting on 02/08/22 at 1030, Until 02/09/22 at 1029 ferrous No 325mg QD 325 mg Lynne sulfate 325 02-08 (4.33 Health mg (65 mg 09:00: 15:22 mg/kg), iron) 00 :37 Oral, tablet 325 DAILY, 30 mg doses, First dose on 02/08/22 at 0900, Last dose on Thu03/09/22 at 0900, STAT cyanocobala No 1000ug QD 1,000 mcg Lynne min 02-08 (13.3 Health (vitamin 09:00: 15:22 mcg/kg), B-12) 1,000 00 :37 Oral, mcg tablet DAILY, 30 1,000 mcg doses, First dose on 02/08/22 at 0900, Last dose on 03/09/22 at 0900, STAT ascorbic No 250mg QD 250 mg Harri s acid 02-08 (3.33 Health (vitamin C) 09:00: 15:22 mg/kg), tablet 250 00 :37 Oral, mg DAILY, 30 doses, First dose on Thu02/08/22 at 0900, Last dose on 03/09/22 at 0900, STAT tamsulosin No .4mg 0.4 mg Alex is (FLOMAX) 02-07 (0.15647 Health capsule 0.4 21:00: 15:22 mg/kg), mg 00 :37 Oral, EVERY EVENING, 30 doses, First dose on Thu02/07/22 at 2100, Last dose on Thu03/08/22 at 2100, STAT lactated 2021- No at 125 Lynne Ringers 02-07 mL/hr, Health infusion 18:42: 10:28 Intravenou 00 :44 s, CONTINUOUS , Starting on Thu02/07/22 at 1842, Until 02/08/22 at 1028 psyllium 2021- No 1{packe Q.[id number] 1 Packet, [facility]aged (METAMUCIL) 02-07 t} [id number] Oral, 3 Health oral packet 18:00: 15:22 3D TIMES 1 Packet 00 :37 DAILY BEFORE MEALS, 90 doses, First dose on Thu02/07/22 at 1800, Last dose on Thu03/09/22 at 1130, STAT loperamide 2021- No 4mg Q.50723381 4 mg Maged (IMODIUM) 02-07 [id number] (0.0533 Health capsule 4 17:44: 15:22 3D mg/kg), mg 00 :37 Oral, 3 TIMES DAILY BEFORE MEALS, 90 doses, First dose on Thu02/07/22 at 1744, Last dose on Thu03/09/22 at 1130, STAT ondansetron 2021- No 4mg 4 mg Harri s (ZOFRAN) 02-07 (0.0533 Health injection 4 17:41: 15:22 mg/kg), IV mg 22 :37 Push, EVERY 6 HOURS PRN, Starting on Thu02/07/22 at 1741, Until Thu02/11/22 at 1522, Nausea, Vomiting, STAT acetaminoph 2021- No 650mg 650 mg Momin rris en 02-07 (8.67 Health (TYLENOL) 17:41: 15:22 mg/kg), tablet 650 15 :37 Oral, mg EVERY 6 HOURS PRN, Starting on Thu02/07/22 at 1741, Until Thu02/11/22 at 1522, Mild pain (1-3), Moderate pain (4-6), STAT sodium 2021- No 2000mL at 999 Milligan chloride 02-07 mL/hr, [facility] 0.9 % 13:57: 14:15 Intravenou infusion 00 :00 s, ONCE, 1 2,000 mL dose, On Thu02/07/22 at 1357 ascorbic 2021- No Altered 250mg QD Take 1 Momin rris acid, 01-21 07-30 bowel tablet by [facility] vitamin C, 00:00: 23:59 elimination mouth 250 mg 00 :00 due to daily for tablet intestinal 60 days ostomy magnesium 2021- No Altered 800mg Q.5D Take 2 H arris oxide 5- 07-30 bowel tablets by [facility] (MAG-OX) 00:00: 23:59 elimination mouth 2 400 [...] Momin rris acid, 01-21-30 bowel tablet by [facility] vitamin C, 00:00: 23:59 elimination mouth 250 [...] Lynne n with 01-21-30 bowel tablet by [facility] folic acid 00:00: 23:59 elimination mouth (THERA) 400 00 :00 due to daily for mcg tablet intestinal 60 days ostomy ascorbic 2021- No Altered 250mg QD Take 1 Momin rris acid, 01-21-30 bowel tablet by [facility] vitamin C, 00:00: 23:59 elimination mouth 250 mg 00 :00 due to daily for tablet intestinal 60 days ostomy magnesium 2021- No Altered 800mg Q.5D Take 2 H arris oxide 5- 07-30 bowel tablets by [facility] (MAG-OX) 00:00: 23:59 elimination mouth 2 400 mg 00 :00 due to times (241.3 mg intestinal daily for magnesium) ostomy 60 days tablet multivitami 2021- No Altered 1{tbl} QD Take 1 Lynne n with 5- 07-30 bowel tablet by [facility] folic acid 00:00: 23:59 elimination mouth (THERA) 400 00 :00 due to daily for mcg tablet intestinal 60 days ostomy ascorbic 2021- No Altered 250mg QD Take 1 Momin rris acid, 01-2130 bowel tablet by [facility] vitamin C, 00:00: 23:59 elimination mouth 250 mg 00 :00 due to daily for tablet intestinal 60 days ostomy magnesium 2021- No Altered 800mg Q.5D Take 2 H arris oxide 01-21-30 bowel tablets by [facility] (MAG-OX) 00:00: 23:59 elimination mouth 2 400 mg 00 :00 due to times (241.3 mg intestinal daily for magnesium) ostomy 60 days tablet multivitami 2021- No Altered 1{tbl} QD Take 1 Lynne n with 01-21 bowel tablet by [facility] folic acid 00:00: 23:59 elimination mouth (THERA) 400 00 :00 due to daily for mcg tablet intestinal 60 days ostomy ascorbic 2021- No Altered 250mg QD Take 1 Momin rris acid, 01-21 bowel tablet by [facility] vitamin C, 00:00: 23:59 elimination mouth 250 mg 00 :00 due to daily for tablet intestinal 60 days ostomy magnesium 2021- No Altered 800mg Q.5D Take 2 H arris oxide 01-2130 bowel tablets by [facility] (MAG-OX) 00:00: 23:59 elimination mouth 2 400 mg 00 :00 due to times (241.3 mg intestinal daily for magnesium) ostomy 60 days tablet multivitami 2021- No Altered 1{tbl} QD Take 1 Lynne n with 01-2130 bowel tablet by [facility] folic acid 00:00: 23:59 elimination mouth (THERA) 400 00 :00 due to daily for mcg tablet intestinal 60 days ostomy ascorbic 2021- No Altered 250mg QD Take 1 Momin rris acid, 01-21-30 bowel tablet by [facility] vitamin C, 00:00: 23:59 elimination mouth 250 mg 00 :00 due to daily for tablet intestinal 60 days ostomy magnesium 2021- No Altered 800mg Q.5D Take 2 H arris oxide 01-21-30 bowel tablets by [facility] (MAG-OX) 00:00: 23:59 elimination mouth 2 400 mg 00 :00 due to times (241.3 mg intestinal daily for magnesium) ostomy 60 days tablet multivitami 2021- No Altered 1{tbl} QD Take 1 Lynne n with 01-21-30 bowel tablet by [facility] folic acid 00:00: 23:59 elimination mouth (THERA) 400 00 :00 due to daily for mcg tablet intestinal 60 days ostomy ascorbic 2021- No Altered 250mg QD Take 1 Momin rris acid, 01-21 bowel tablet by [facility] vitamin C, 00:00: 23:59 elimination mouth 250 mg 00 :00 due to daily for tablet intestinal 60 days ostomy magnesium 2021- No Altered 800mg Q.5D Take 2 H arris oxide 01-2130 bowel tablets by [facility] (MAG-OX) 00:00: 23:59 elimination mouth 2 400 mg 00 :00 due to times (241.3 mg intestinal daily for magnesium) ostomy 60 days tablet multivitami 2021- No Altered 1{tbl} QD Take 1 Lynne n with 01-21 bowel tablet by [facility] folic acid 00:00: 23:59 elimination mouth (THERA) 400 00 :00 due to daily for mcg tablet intestinal 60 days ostomy ascorbic 2021- No Altered 250mg QD Take 1 Momin rris acid, 01-21 bowel tablet by [facility] vitamin C, 00:00: 23:59 elimination mouth 250 mg 00 :00 due to daily for tablet intestinal 60 days ostomy magnesium 2021- No Altered 800mg Q.5D Take 2 H arris oxide 01-21-30 bowel tablets by [facility] (MAG-OX) 00:00: 23:59 elimination mouth 2 400 mg 00 :00 due to times (241.3 mg intestinal daily for magnesium) ostomy 60 days tablet multivitami 2021- No Altered 1{tbl} QD Take 1 Lynne n with 5-23 03-30 bowel tablet by [facility] folic acid 00:00: 23:59 elimination mouth (THERA) 400 00 :00 due to daily for mcg tablet intestinal 60 days ostomy ascorbic 2021- No [id number] 250mg QD Take 1 H arris acid, 5-31 07-30 tablet by [facility] vitamin C, 00:00: 23:59 mouth 250 mg 00 :00 daily for tablet 60 days magnesium 2021- No [id number] 800mg Q.5D Take 2 Lynne oxide 5-31 07-30 tablets by [facility] ([facility]) 00:00: 23:59 mouth 2 400 mg 00 :00 times (241.3 mg daily for magnesium) 60 days tablet multivitami 2021- No [id number] 1{tbl} QD Take 1 Lynne n with 5- 07-30 tablet by [facility] folic acid 00:00: 23:59 mouth (THERA) 400 00 :00 daily for mcg tablet 60 days ascorbic 2021- No [id number] 250mg QD Take 1 H arris acid, 5-23 03-30 tablet by [facility] vitamin C, 00:00: 23:59 mouth 250 mg 00 :00 daily for tablet 60 days magnesium 2021- No [id number] 800mg Q.5D Take 2 Lynne oxide 5 07-30 tablets by [facility] ([facility]) 00:00: 23:59 mouth 2 400 mg 00 :00 times (241.3 mg daily for magnesium) 60 days tablet multivitami 2021- No [id number] 1{tbl} QD Take 1 Lynne n with 5- 07-30 tablet by [facility] folic acid 00:00: 23:59 mouth (THERA) 400 00 :00 daily for mcg tablet 60 days ascorbic 2021- No [id number] 250mg QD Take 1 H arris acid, 5- 07-30 tablet by [facility] vitamin C, 00:00: 23:59 mouth 250 mg 00 :00 daily for tablet 60 days magnesium 2021- No [id number] 800mg Q.5D Take 2 Lynne oxide 5-31 07-30 tablets by [facility] ([facility]) 00:00: 23:59 mouth 2 400 mg 00 :00 times (241.3 mg daily for magnesium) 60 days tablet multivitami 2021- No [id number] 1{tbl} QD Take 1 Lynne n with 5-31 07-30 tablet by Health folic acid 00:00: 23:59 mouth (THERA) 400 00 :00 daily for mcg tablet 60 days ascorbic 2021- No Altered 250mg QD Take 1 Momin rris acid, - 07-30 bowel tablet by [facility] vitamin C, 00:00: 23:59 elimination mouth 250 mg 00 :00 due to daily for tablet intestinal 60 days ostomy magnesium 2021- No Altered 800mg Q.5D Take 2 H arris oxide 5- 07-30 bowel tablets by [facility] (MAG-OX) 00:00: 23:59 elimination mouth 2 400 mg 00 :00 due to times (241.3 mg intestinal daily for magnesium) ostomy 60 days tablet multivitami 2021- No Altered 1{tbl} QD Take 1 Lynne n with 01-21-30 bowel tablet by [facility] folic acid 00:00: 23:59 elimination mouth (THERA) 400 00 :00 due to daily for mcg tablet intestinal 60 days ostomy ascorbic 2021- No Altered 250mg QD Take 1 Momin rris acid, 01-21-30 bowel tablet by [facility] vitamin C, 00:00: 23:59 elimination mouth 250 [...] rris acid, - 07-30 bowel tablet by [facility] vitamin C, 00:00: 23:59 elimination mouth 250 mg 00 :00 due to daily for tablet intestinal 60 days ostomy magnesium 2021- No Altered 800mg Q.5D Take 2 H arris oxide 5-31 07-30 bowel tablets by [facility] (MAG-OX) 00:00: 23:59 elimination mouth 2 400 [...] rris acid, 5-23 03-30 bowel tablet by [facility] vitamin C, 00:00: 23:59 elimination mouth 250 [...] rris acid, 5- 07-30 bowel tablet by [facility] vitamin C, 00:00: 23:59 elimination mouth 250 mg 00 :00 due to daily for tablet intestinal 60 days ostomy magnesium 2021-2021- No Altered 800mg Q.5D Take 2 H arris oxide 5- 07-30 bowel tablets by [facility] (MAG-OX) 00:00: 23:59 elimination mouth 2 400 [...] arris oxide 5-31 07-30 bowel tablets by [facility] (MAG-OX) 00:00: 23:59 elimination mouth 2 400 [...] arris oxide -23 03-30 bowel tablets by [facility] (MAG-OX) 00:00: 23:59 elimination mouth 2 400 [...] Momin rris acid, 01-2130 bowel tablet by [facility] vitamin C, 00:00: [...] 250mg QD Take 1 Momin rris acid, 5-30 bowel tablet by [facility] vitamin C, 00:00: 23:59 elimination mouth 250 mg 00 :00 due to daily for tablet intestinal 60 days ostomy magnesium 2021-2021- No Altered 800mg Q.5D Take 2 H arris oxide 5- 07-30 bowel tablets by [facility] (MAG-OX) 00:00: 23:59 elimination mouth 2 400 [...] Momin rris acid, 01-21-30 bowel tablet by [facility] vitamin C, 00:00: 23:59 elimination mouth 250 [...] Lynne n with 01-21-30 bowel tablet by [facility] folic acid 00:00: 23:59 elimination mouth (THERA) 400 00 :00 due to daily for mcg tablet intestinal 60 days ostomy ascorbic 2021-2021- No Altered 250mg QD Take 1 Momin rris acid, 01-21-30 bowel tablet by [facility] vitamin C, 00:00: 23:59 elimination mouth 250 mg 00 :00 due to daily for tablet intestinal 60 days ostomy magnesium 2021-2021- No Altered 800mg Q.5D Take 2 H arris oxide 5- 07-30 bowel tablets by [facility] (MAG-OX) 00:00: 23:59 elimination mouth 2 400 [...] days ostomy loperamide 2021- No Altered 4mg Q.03818545 Take 2 Lynne (IMODIUM) 2 01-21-30 bowel [id number] capsules Health mg capsule 00:00: 00:00 elimination [...] days ostomy loperamide 2021- No Altered 4mg Q.90704728 Take 2 Lynne (IMODIUM) 2 01-21-30 bowel [id number] capsules Health mg capsule 00:00: 00:00 elimination [...] days ostomy loperamide 2021- No Altered 4mg Q.91927970 Take 2 Lynne (IMODIUM) 2 01-21-30 bowel [id number] capsules Health mg capsule 00:00: 00:00 elimination [...] days ostomy loperamide 2021- No Altered 4mg Q.47902339 Take 2 Lynne (IMODIUM) 2 01-21 bowel [id number] capsules Health mg capsule 00:00: 00:00 elimination [...] days ostomy loperamide 2021- No Altered 4mg Q.52020052 Take 2 Lynne (IMODIUM) 2 01-21-30 bowel [id number] capsules Health mg capsule 00:00: 00:00 elimination [...] days ostomy loperamide 2021- No Altered 4mg Q.50387076 Take 2 Lynne (IMODIUM) 2 01-21 bowel [id number] capsules Health mg capsule 00:00: 00:00 elimination [...] days ostomy loperamide 2021- No Altered 4mg Q.35840034 Take 2 Lynne (IMODIUM) 2 01-21 bowel [id number] capsules Health mg capsule 00:00: 00:00 elimination [...] days ostomy loperamide 2021- No Altered 4mg Q.40398128 Take 2 Lynne (IMODIUM) 2 01-21-30 bowel [id number] capsules Health mg capsule 00:00: 00:00 elimination 3D by mouth 3 00 :00 due to times intestinal daily ostomy (before meals) for 30 days tamsulosin 2021- No [id number] .4mg Take 1 Lynne (FLOMAX) 01-21 [id number] capsule by [facility] 0.4 mg 00:00: 00:00 mouth capsule 00 :00 every evening for 30 days ferrous 2021- No [id number] 325mg QD Take 1 Momin rris sulfate 325 01-21 tablet by [facility] mg (65 mg 00:00: 00:00 mouth iron) 00 :00 daily for tablet 60 days loperamide 2021- No [id number] 4mg Q.44007302 Take 2 Lynne (IMODIUM) 2 01-21 [id number] capsules Health mg capsule 00:00: 00:00 3D by mouth 3 00 :00 times daily (before meals) for 30 days tamsulosin 2021- [...] days ostomy loperamide 2021- No Altered 4mg Q.70745788 Take 2 Lynne (IMODIUM) 2 01-21 bowel [id number] capsules Health mg capsule 00:00: 00:00 elimination [...] days ostomy loperamide 2021- No Altered 4mg Q.77305543 Take 2 Lynne (IMODIUM) 2 01-21-30 bowel [id number] capsules Health mg capsule 00:00: 00:00 elimination [...] days ostomy loperamide 2021- No Altered 4mg Q.08971272 Take 2 Lynne (IMODIUM) 2 01-21 bowel [id number] capsules Health mg capsule 00:00: 00:00 elimination [...] days ostomy loperamide 2021- No Altered 4mg Q.34960440 Take 2 Lynne (IMODIUM) 2 01-21-30 bowel [id number] capsules Health mg capsule 00:00: 00:00 elimination [...] days ostomy loperamide 2021- No Altered 4mg Q.55290876 Take 2 Lynne (IMODIUM) 2 01-21 bowel [id number] capsules Health mg capsule 00:00: 00:00 elimination [...] days ostomy loperamide 2021- No Altered 4mg Q.01718912 Take 2 Lynne (IMODIUM) 2 01-21 bowel [id number] capsules Health mg capsule 00:00: 00:00 elimination [...] days ostomy loperamide 2021- No Altered 4mg Q.48920872 Take 2 Lynne (IMODIUM) 2 01-21 bowel [id number] capsules Health mg capsule 00:00: 00:00 elimination [...] 60 days ostomy loperamide No Altered 4mg Q.71632977 Take 2 Lynne (IMODIUM) 2 01-21 bowel [id number] capsules Health mg capsule 00:00: 00:00 elimination [...] days ostomy loperamide 2021- No Altered 4mg Q.30842491 Take 2 Lynne (IMODIUM) 2 01-21 bowel [id number] capsules Health mg capsule 00:00: 00:00 elimination [...] days ostomy loperamide 2021- No Altered 4mg Q.97344620 Take 2 Lynne (IMODIUM) 2 01-21 bowel [id number] capsules Health mg capsule 00:00: 00:00 elimination [...] days ostomy loperamide 2021- No Altered 4mg Q.19297139 Take 2 Lynne (IMODIUM) 2 01-21 bowel [id number] capsules Health mg capsule 00:00: 00:00 elimination [...] days ostomy loperamide 2021- No Altered 4mg Q.02709181 Take 2 Lynne (IMODIUM) 2 01-21 bowel [id number] capsules Health mg capsule 00:00: 00:00 elimination [...] days ostomy loperamide 2021- No Altered 4mg Q.80523877 Take 2 Lynne (IMODIUM) 2 01-21 bowel [id number] capsules Health mg capsule 00:00: 00:00 elimination [...] days ostomy loperamide 2021- No Altered 4mg Q.41113268 Take 2 Lynne (IMODIUM) 2 01-21 bowel [id number] capsules Health mg capsule 00:00: 00:00 elimination [...] days ostomy loperamide 2021- No Altered 4mg Q.58878702 Take 2 Lynne (IMODIUM) 2 01-21 bowel [id number] capsules Health mg capsule 00:00: 00:00 elimination [...] 60 days ostomy loperamide No Altered 4mg Q.98338734 Take 2 Lynne (IMODIUM) 2 01-21 bowel [id number] capsules Health mg capsule 00:00: 00:00 elimination 3D by mouth 3 00 :00 due to times intestinal daily ostomy (before meals) for 30 days psyllium 2021- No Altered 1{packe Q.02610981 Take 1 Lynne (METAMUCIL) 01-21 bowel t} [id number] Packet by [facility] 6 gram PwPk 00:00: 00:00 elimination 3D mouth 3 00 :00 due to times intestinal daily ostomy (before meals) for 90 days psyllium 2021- No Altered 1{packe Q.69147095 Take 1 Lynne (METAMUCIL) 01-21 bowel t} [id number] Packet by [facility] 6 gram PwPk 00:00: 00:00 elimination 3D mouth 3 00 :00 due to times intestinal daily ostomy (before meals) for 90 days psyllium 2021- No Altered 1{packe Q.71975386 Take 1 Lynne (METAMUCIL) 01-21 bowel t} [id number] Packet by [facility] 6 gram PwPk 00:00: 00:00 elimination 3D mouth 3 00 :00 due to times intestinal daily ostomy (before meals) for 90 days psyllium 2021- No Altered 1{packe Q.92541517 Take 1 Lynne (METAMUCIL) 01-21 bowel t} [id number] Packet by [facility] 6 gram PwPk 00:00: 00:00 elimination 3D mouth 3 00 :00 due to times intestinal daily ostomy (before meals) for 90 days psyllium 2021- No Altered 1{packe Q.52758801 Take 1 Lynne (METAMUCIL) 01-21 bowel t} [id number] Packet by [facility] 6 gram PwPk 00:00: 00:00 elimination 3D mouth 3 00 :00 due to times intestinal daily ostomy (before meals) for 90 days psyllium 2021- No Altered 1{packe Q.53167146 Take 1 Lynne (METAMUCIL) 01-21 bowel t} [id number] Packet by [facility] 6 gram PwPk 00:00: 00:00 elimination 3D mouth 3 00 :00 due to times intestinal daily ostomy (before meals) for 90 days psyllium 2021- No Altered 1{packe Q.81537827 Take 1 Lynne (METAMUCIL) 01-21 bowel t} [id number] Packet by [facility] 6 gram PwPk 00:00: 00:00 elimination 3D mouth 3 00 :00 due to times intestinal daily ostomy (before meals) for 90 days psyllium 2021- No Altered 1{packe Q.83549737 Take 1 Lynne (METAMUCIL) 01-21 bowel t} [id number] Packet by [facility] 6 gram PwPk 00:00: 00:00 elimination 3D mouth 3 00 :00 due to times intestinal daily ostomy (before meals) for 90 days psyllium 2021- No Altered 1{packe Q.39222679 Take 1 Lynne (METAMUCIL) 01-21 bowel t} [id number] Packet by [facility] 6 gram PwPk 00:00: 00:00 elimination 3D mouth 3 00 :00 due to times intestinal daily ostomy (before meals) for 90 days psyllium 2021- No Altered 1{packe Q.92583690 Take 1 Lynne (METAMUCIL) 01-21 bowel t} [id number] Packet by [facility] 6 gram PwPk 00:00: 00:00 elimination 3D mouth 3 00 :00 due to times intestinal daily ostomy (before meals) for 90 days psyllium 2021- No Altered 1{packe Q.90069092 Take 1 Lynne (METAMUCIL) 01-21 bowel t} [id number] Packet by [facility] 6 gram PwPk 00:00: 00:00 elimination 3D mouth 3 00 :00 due to times intestinal daily ostomy (before meals) for 90 days psyllium 2021- No Altered 1{packe Q.66859901 Take 1 Lynne (METAMUCIL) 01-21 bowel t} [id number] Packet by [facility] 6 gram PwPk 00:00: 00:00 elimination 3D mouth 3 00 :00 due to times intestinal daily ostomy (before meals) for 90 days psyllium 2021- No Altered 1{packe Q.80081478 Take 1 Lynne (METAMUCIL) 01-21 bowel t} [id number] Packet by [facility] 6 gram PwPk 00:00: 00:00 elimination 3D mouth 3 00 :00 due to times intestinal daily ostomy (before meals) for 90 days psyllium 2021- No Altered 1{packe Q.94926713 Take 1 Lynne (METAMUCIL) 01-21 bowel t} [id number] Packet by [facility] 6 gram PwPk 00:00: 00:00 elimination 3D mouth 3 00 :00 due to times intestinal daily ostomy (before meals) for 90 days psyllium 2021- No Altered 1{packe Q.92584059 Take 1 Lynne (METAMUCIL) 01-21 bowel t} [id number] Packet by [facility] 6 gram PwPk 00:00: 00:00 elimination 3D mouth 3 00 :00 due to times intestinal daily ostomy (before meals) for 90 days psyllium 2021- No Altered 1{packe Q.65196936 Take 1 Lynne (METAMUCIL) 01-21 bowel t} [id number] Packet by [facility] 6 gram PwPk 00:00: 00:00 elimination 3D mouth 3 00 :00 due to times intestinal daily ostomy (before meals) for 90 days psyllium 2021- No Altered 1{packe Q.19505141 Take 1 Lynne (METAMUCIL) 01-21 bowel t} [id number] Packet by [facility] 6 gram PwPk 00:00: 00:00 elimination 3D mouth 3 00 :00 due to times intestinal daily ostomy (before meals) for 90 days psyllium 2021- No Altered 1{packe Q.54917300 Take 1 Lynne (METAMUCIL) 01-21 bowel t} [id number] Packet by [facility] 6 gram PwPk 00:00: 00:00 elimination 3D mouth 3 00 :00 due to times intestinal daily ostomy (before meals) for 90 days psyllium 2021- No Altered 1{packe Q.66070414 Take 1 Lynne (METAMUCIL) 01-21 bowel t} [id number] Packet by [facility] 6 gram PwPk 00:00: 00:00 elimination 3D mouth 3 00 :00 due to times intestinal daily ostomy (before meals) for 90 days psyllium 2021- No Altered 1{packe Q.[id number] Take 1 Lynne (METAMUCIL) 01-21 bowel t} [id number] Packet by [facility] 6 gram PwPk 00:00: 00:00 elimination 3D mouth 3 00 :00 due to times intestinal daily ostomy (before meals) for 90 days psyllium 2021- No Altered 1{packe Q.44638232 Take 1 [place] (METAMUCIL) 01-21 bowel t} [id number] Packet by [facility] 6 gram PwPk 00:00: 00:00 elimination 3D mouth 3 00 :00 due to times intestinal daily ostomy (before meals) for 90 days psyllium 2021- No Altered 1{packe Q.40943814 Take 1 [place] (METAMUCIL) 01-21 bowel t} [id number] Packet by [facility] 6 gram PwPk 00:00: 00:00 elimination 3D mouth 3 00 :00 due to times intestinal daily ostomy (before meals) for 90 days psyllium 2022-0 2022- No Altered 1{packe Q.92223452 Take 1 [place] (METAMUCIL) 01-21- bowel t} [id number] Packet by [facility] 6 gram PwPk 00:00: 00:00 elimination 3D mouth 3 00 :00 due to times intestinal daily ostomy (before meals) for 90 days psyllium 2021- No Altered 1{packe Q.07043765 Take 1 [place] (METAMUCIL) 01-21- bowel t} [id number] Packet by [facility] 6 gram PwPk 00:00: 00:00 elimination 3D mouth 3 00 :00 due to times intestinal daily ostomy (before meals) for 90 days tamsulosin 2021- No Benign .4mg QD Take 1 Momin rris (FLOMAX) 01-12 prostatic capsule by [facility] 0.4 mg 00:00: 00:00 hyperplasia mouth capsule 00 :00 , daily. unspecified Start on whether 01/12/2022. lower urinary tract symptoms present tamsulosin 2021- No Benign .4mg QD Take 1 [place] (FLOMAX) 01-12 prostatic capsule by [facility] 0.4 mg 00:00: 00:00 hyperplasia mouth capsule 00 :00 , daily. unspecified Start on whether 01/12/2022. lower urinary tract symptoms present tamsulosin 2021- No Benign .4mg QD Take 1 [place] (FLOMAX) 01-12 prostatic capsule by [facility] 0.4 mg 00:00: 00:00 hyperplasia mouth capsule 00 :00 , daily. unspecified Start on whether 01/12/2022. lower urinary tract symptoms present tamsulosin 2021- No Benign .4mg QD Take 1 M[place] (FLOMAX) 01-12-31 prostatic capsule by [facility] 0.4 mg 00:00: 00:00 hyperplasia mouth capsule 00 :00 , daily. unspecified Start on whether 01/12/2022. lower urinary tract symptoms present tamsulosin 2021- No Benign .4mg QD Take 1 [place] (FLOMAX) 01-12-31 prostatic capsule by [facility] 0.4 mg 00:00: 00:00 hyperplasia mouth capsule [...] Momin rris (FLOMAX) 01-12 prostatic capsule by [facility] 0.4 mg 00:00: 00:00 hyperplasia mouth capsule 00 :00 , daily. unspecified Start on whether 01/12/2022. lower urinary tract symptoms present tamsulosin 2021-2021- No Benign .4mg QD Take 1 Momin rris (FLOMAX) 01-12 prostatic capsule by [facility] 0.4 mg 00:00: 00:00 hyperplasia mouth capsule 00 :00 , daily. unspecified Start on whether 01/12/2022. lower urinary tract symptoms present tamsulosin 2021-2021- No Benign .4mg QD Take 1 M[place] rris (FLOMAX) 01-12 prostatic capsule by [facility] 0.4 mg 00:00: 00:00 hyperplasia mouth capsule 00 :00 , daily. unspecified Start on whether 01/12/2022. lower urinary tract symptoms present tamsulosin 2021-2021- No Benign .4mg QD Take 1 Momin rris (FLOMAX) 01-12 prostatic capsule by [facility] 0.4 mg 00:00: 00:00 hyperplasia mouth capsule [...] 00 daily mcg tablet cyanocobala 2021-0 Yes [id number] 1000ug QD Take 1 [place] min, 5-21 4102 tablet by [facility] 00:00: mouth B-12, 1,000 00 daily mcg tablet cyanocobala 2-0 Yes [id number] 1000ug QD Take 1 [place] min, 5-21 4102 tablet by [facility] 00:00: mouth B-12, 1,000 00 daily mcg tablet cyanocobala 2021-0 Yes [id number] 1000ug QD Take 1 [place] min, 5-21 4102 tablet by [facility] vitamin 00:00: mouth B-12, 1,000 00 daily mcg tablet [...] 2 mg, Slow Un piyush injection 2 09-0816 IV Push, ity of mg 02:45: 02:09 ONCE, 1 [place] 00 :00 dose, On Medical Sat Branch 09/07/21 at 2045, STAT ondansetron 2021- No 4mg 4 mg, Slow Univers (ZOFRAN 09-08 IV Push, ity of (PF)) 02:45: 02:09 ONCE, 1 [place] injection 4 00 :00 dose, On Medi mariusz mg Sat Branch 09/07/21 at 2045, JOÃO iopamidol 2021- No [id number] 100mL 100 mL, Univers (ISOVUE 09-08 Intravenou [...] 4-6). Indication s: acute pain ondansetron Yes [id number] 4mg Take 1 Univers 4 mg 1-15 tablet by ity of disintegrat 00:00: mouth [place] ing tablet 00 every 8 Medica l (eight) Branch hours as needed for Nausea and Vomiting (N/V). traMADoL 50 Yes [id number] 50mg Take 1 Univ ers mg tablet 1-15 tablet by ity o f 00:00: mouth [place] 00 every 6 Medical (six) Branch hours as needed for Pain (scale 4-6). Indication s: acute pain ondansetron Yes [id number] 4mg Take 1 Univers 4 mg 1-15 [...] Indication s: acute pain ondansetron 0 Yes [id number] 4mg Take 1 Univers 4 mg 1-15 [...] Indication s: acute pain ondansetron 2021-0 Yes [id number] 4mg Take 1 Univers 4 mg 1-15 [...] Indication s: acute pain ondansetron 0 Yes [id number] 4mg Take 1 Univers 4 mg 1-15 [...] s: acute pain ondansetron 0 2021- No [id number] 4mg Take 1 Univers 4 mg 1-15 [...] Branch daily with meals. loperamide 2022-0 Yes [id number] 2mg Take 1 Univers 2 mg 1-12 [...] Branch daily with meals. loperamide 2022-0 Yes [id number] 2mg Take 1 Univers 2 mg 1-12 [...] Branch daily with meals. loperamide 2022-0 Yes [id number] 2mg Take 1 Univers 2 mg 1-12 [...] Branch daily with meals. loperamide 2022-0 Yes [id number] 2mg Take 1 Univers 2 mg 1-12 [...] Branch daily with meals. loperamide 2022-0 Yes [id number] 2mg Take 1 Univers 2 mg 1-12 [...] Branch daily with meals. loperamide 2022-0 Yes [id number] 2mg Take 1 Univers 2 mg 1-12 [...] Branch daily with meals. loperamide 2022-0 Yes [id number] 2mg Take 1 Univers 2 mg 1-12 [...] Branch daily with meals. loperamide 2022-0 Yes [id number] 2mg Take 1 Univers 2 mg 1-12 [...] Branch daily with meals. loperamide 2022-0 Yes [id number] 2mg Take 1 Univers 2 mg 1-12 [...] as needed for Pain (scale 1-3). ibuprofen 2021- No 600mg Take 1 Univ ers 600 mg 09-04 tablet by ity of tablet 00:00: 00:00 mouth 3 [place] 00 :00 (three) Medical times Branch daily with meals. loperamide 2021- No [id number] 2mg Take 1 Univers 2 mg 09-04 capsule by ity of capsule 00:00: 00:00 mouth 2 [place] 00 :00 (two) Medical times Branch daily. psyllium 2021- No 1{packe Take 1 Uni vers 3.4 gram 09-04 t} Packet by ity o f packet 00:00: 00:00 mouth 2 [place] 00 :00 (two) Medical times Branch daily. vitamin 2021-0 Yes 1000ug 1,000 mcg, Un piyush B-12 09-03 Oral, ity of (CYANOCOBAL 20:00: DAILY, [place] 00 First dose Medical tablet on [facility] 1,000 mcg 09/03/21 at 1400, Until Discontinu ed, Routine vitamin 2021-0 Yes 1000ug 1,000 mcg, Un piyush B-12 09-03 Oral, ity of (CYANOCOBAL 20:00: DAILY, [place] 00 First dose Medical tablet on [facility] 1,000 mcg 09/03/21 at 1400, Until Discontinu [...] Oral, ity of tablet 50 14:28: Q6HPRN, [place] mg 55 Starting Medical on Thu Branch 09/03/21 at 0828, Until Discontinu ed, Routine, Pain (scale 4-6) traMADoL Yes 50mg 50 mg, Univers (ULTRAM) 09-03 Oral, ity of tablet 50 14:28: Q6HPRN, [place] mg 55 Starting Medical on Thu Branch [...] Thu09/03/21 at 0826, Routine sulfur 2021- No [id number] [facility] Intravenou i ty of e microsphr 21:30: 21:30 s, ONCE, 1 [place] (LUMASON) 00 :00 dose, On Medica l injection 5 Mon Branch mL 09/02/21 at 1530, Routine
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 : CAMILA GREGORY [...] Starting Branch on 09/01/21 at 0800, Until [place] 09/01/21 at 1007, Routine NaCl 0.9% 2022-0 2022- No 1000mL at 999 Uni vers (NS) bolus 1-08 01-08 mL/hr, ity of infusion 15:15: 15:11 1,000 mL, [place] 1,000 mL 00 :00 IV Medical Infusion, Branch ONCE, 1 dose, On [facility] 08/31/21 at 0915, STAT pantoprazol 2022-0 Yes 40mg 40 mg, Univ ers e 1-08 Oral, ity of (PROTONIX) 15:00: DAILY, [place] EC tablet 00 First dose Medi mariusz 40 mg on [facility] Branch 08/31/21 at 0900, Until Discontinu ed, Routine pantoprazol 2022-0 Yes 40mg 40 mg, Univ ers e 1-08 Oral, ity of (PROTONIX) 15:00: DAILY, [place] EC tablet 00 First dose Medi mariusz 40 mg on [facility] Branch 08/31/21 at 0900, Until Discontinu ed, Routine loperamide 2022-0 Yes 2mg 2 mg, Univer s (IMODIUM 1-08 Oral, BID, ity o f A-D) 14:00: First dose [place] capsule 2 00 on [facility] Medical mg 08/31/21 at Branch 0800, Until Discontinu ed, Routine psyllium 2022-0 Yes 1{packe 1 Packet, U nivers (METAMUCIL 1-08 t} Oral, BID, ity of FIBER 14:00: First dose [place] SINGLES) 00 on [facility] Medical 3.4 gram 08/31/21 at [...] First dose [place] capsule 2 00 on [facility] Medical mg 08/31/21 at Branch [...] 0800, Until Discontinu ed, Routine NaCl 0.9% 2021-2021- No at 125 Unive rs (NS) IV 08-31 01-08 mL/hr, IV ity of infusion 07:15: 08:03 Infusion, [place] 00 :43 CONTINUOUS Medical , Starting Branch on 08/31/21 at 0115, Until 08/31/21 at 0203, Routine acetaminoph 2021-0 Yes 650mg 650 mg, Un piyush en 1-08 Oral, ity of (TYLENOL) 06:03: Q6HPRN, [place] tablet 650 36 Starting Medic al mg on Sat Branch 08/31/21 at 0003, Until Discontinu ed, Routine, Pain (scale 1-3) acetaminoph 202-0 Yes 650mg 650 mg, Un piyush en 1-08 Oral, ity of (TYLENOL) 06:03: Q6HPRN, [place] tablet 650 36 Starting Medic al mg on Sat Branch 08/31/21 at 0003, Until Discontinu ed, Routine, Pain (scale 1-3) NaCl 0.9% 0 2021- No 1000mL at 999 Uni vers (NS) bolus 08-31 01-08 mL/hr, ity of infusion 01:45: 02:43 1,000 mL, [place] 1,000 mL 00 :00 IV Medical Infusion, Branch ONCE, 1 dose, On Thu08/30/21 at 1945, STAT albuterol 2021-0 2021- No 8{puff} 8 Puff, U nivers (VENTOLIN) 1-07 01-07 Inhalation it y of inhaler 8 [...] No Univers medications 06 ity of 19:35: [address] Branch NaCl 0.9% 2020-08 Yes 10mL 10 mL, Univer s (NS) 2-12 Slow IV ity of injection 19:13: Push, PRN, [place] 10 mL 37 Starting Medical on [place] Branch 08/04/21 at 1313, Until Discontinu ed, Routine, line maintenanc e lidocaine 2020-08 Yes 5mL 5 mL, Univers 1% (PF) 2-12 Subcutaneo ity of (XYLOCAINE) 19:13: us, PRN, [place] injection 5 37 Starting Medi mariusz mL on [place] Branch 08/04/21 at 1313, Until Discontinu ed, Routine, Local anesthesia dextrose 5% 2020-08 Yes IV Univer s and 0.45% 2-12 Infusion, ity o f NaCl with 16:00: CONTINUOUS [place] KCl 40 mEq 00 , Starting Med ical 1,000 mL IV on [place] Branch Solution 08/04/21 at 1000, Until Discontinu ed, 1,000 mL, at 125 mL/hr NaCl 0.9% 2020-08 No 1000mL at 999 Uni vers (NS) bolus 2-12 12-12 mL/hr, ity of infusion 15:53: 17:17 1,000 mL, [place] 1,000 mL 00 :00 IV Medical Piggyback, Branch ONCE, 1 dose, On Thu08/04/21 at 1000, JOÃO D5W 0.45% 2020-08 IV Univers NaCl + KCL 2-10 12-12 [...] Medical mg last Branch modificati on) on [facility] 08/01/21 at 0730, Until Discontinu ed, Routine magnesium 2020-08 No 2g 2 g, IV Univ ers sulfate in 10-02 Piggyback, it y of water 2 13:00: 14:28 ONCE, 1 [place] gram/50 mL 00 :00 dose, On Medic al (4 %) [facility] Branch infusion 2 08/01/21 at g 0700, Routine diphenoxyla 2020-08 No 1{tbl} 1 tablet, Univers te-atropine 10-01 Oral, BID, i ty of (LOMOTIL) 15:30: 13:19 First dose [place] 2.5-0.025 00 :28 on Thu Medical mg tablet 1 07/31/21 at Br anch tablet 0930, Until Discontinu ed, Routine iopamidol 2020-08 No [id number] 100mL 100 mL, Univers (ISOVUE 10-01 Intravenou ity o f 370-500 mL) 05:14: 05:14 s, ONCE, 1 [place] injection 00 :00 dose, On Medica l 100 mL [facility] 07/30/21 at 2315, Routine morpHINE 2020-08 No 2mg 2 mg, Slow Un piyush injection 2 09-30 IV Push, ity of mg 17:00: 17:10 ONCE, 1 [place] 00 :00 dose, On Medical [facility] 07/30/21 at 1115, Routine enoxaparin 2020-08 Yes 40mg 40 mg, Unive rs (LOVENOX) 09-30 Subcutaneo ity of injection 15:00: us, DAILY, [place] 40 mg 00 First dose Medical (after Branch last modificati on) on [facility] 07/30/21 at 0900, Until Discontinu ed, Routine pantoprazol 2020-08 No 40mg 40 mg, Uni vers e 09-3010 Oral, ity of (PROTONIX) 15:00: 13:40 DAILY, [place] EC tablet 00 :20 First dose Medi mariusz 40 mg on Thu Branch 07/30/21 at 0900, Until Discontinu ed, Routine loperamide 2020-08 No 4mg 4 mg, Unive rs (IMODIUM 09-30 Oral, TID, ity of A-D) 14:00: 13:19 First dose [place] capsule 4 00 :28 on [facility] Medical mg 07/30/21 at Branch 0800, Until Discontinu ed, Routine psyllium 2020-08- No 1{packe 1 Packet, Univers (METAMUCIL 09-30 t} Oral, TID, it y of FIBER 14:00: 13:19 First dose [place] SINGLES) 00 :28 on Medical 3.4 gram 07/30/21 at [facility] h packet 1 0800, Packet Until [...] Yes 650mg 650 mg, Un piyush en 2- Oral, ity of (TYLENOL) 06:10: Q6HPRN, [place] tablet 650 40 Starting Medic al mg on Thu Branch 07/30/21 at 0010, Until Discontinu ed, Routine, Pain (scale 1-3) morpHINE 2020-08- No 4mg 4 mg, Slow Un piyush injection 4 2- 12- IV Push, ity of mg 03:30: 02:55 ONCE, 1 [place] 00 :00 dose, On [facility] Branch 07/29/21 at 2130, STAT psyllium 2020-08 Yes [id number] 1{packe Take 1 Univers 3.4 gram 2-03 t} Packet by ity of packet 00:00: mouth 3 00 (three) Medical times Branch daily. loperamide 2020-08 Yes [id number] 4mg Take 2 Univers 2 mg 2-03 capsules ity of capsule 00:00: by mouth 3 [facility] [place] [facility] Medical [facility] Branch daily. pantoprazol 2020-08 Yes [id number] 40mg Take 1 Univers e 40 mg EC 2-03 tablet by ity of tablet 00:00: mouth [place] 00 daily. Medical Branch psyllium 2020-08 Yes [id number] 1{packe Take 1 Univers 3.4 gram 2-03 t} Packet by ity of packet 00:00: mouth 3 00 (three) Medical times Branch daily. loperamide 2020-08 Yes [id number] 4mg Take 2 Univers 2 mg 2-03 capsules ity of capsule 00:00: by mouth 3 [place] 00 (three) Medical times Branch daily. pantoprazol 2020-08 Yes [id number] 40mg Take 1 Univers e 40 mg EC 2-03 tablet by ity of tablet 00:00: mouth [place] 00 daily. Medical Branch psyllium 2020-08- No [id number] 1{packe Take 1 Univers 3.4 gram 2-03 12-13 t} Packet by ity o f packet 00:00: 00:00 mouth 3 [place] 00 :00 (three) Medical times Branch daily. loperamide 2020-08- No [id number] 4mg Take 2 Univers 2 mg 2-11 02-13 capsules ity of capsule 00:00: 00:00 by mouth 3 [place] 00 :00 (three) Medical times Branch daily. pantoprazol 2020-08- No [id number] 40mg Take 1 Univers e 40 mg EC 2-11 02-13 tablet by ity of tablet 00:00: 00:00 mouth [place] 00 :00 daily. Medical Branch psyllium 2020-08- No [id number] 1{packe Take 1 Univers 3.4 gram 2-07-26 t} Packet by ity o f packet 00:00: 00:00 mouth 3 [place] 00 :00 (three) Medical times Branch daily for 90 days. loperamide 2020-08- No [id number] 4mg Take 2 Univers 2 mg 2-11 02- capsules ity of capsule 00:00: 00:00 by mouth 3 [place] 00 :00 (three) Medical times Branch daily for 90 days. pantoprazol 2020-08- No [id number] 40mg Take 1 Univers e 40 mg EC 2-11 02- tablet by ity of tablet 00:00: 00:00 mouth [place] 00 :00 daily for Medical 90 days. Branch psyllium 2020-08- No [id number] 1{packe Take 1 Univers 3.4 gram 2-07-26 t} Packet by ity o f packet 00:00: 00:00 mouth 3 [place] 00 :00 (three) Medical times Branch daily. pantoprazol 2020-08- No [id number] 40mg Take 1 Univers e 40 mg EC 2-03 -03 tablet by ity of tablet 00:00: 00:00 mouth [place] 00 :00 daily. Medical Branch loperamide 2020-08- No [id number] 4mg Take 2 Univers 2 mg 2-03 12-03 capsules ity of capsule 00:00: 00:00 by mouth 3 [place] 00 :00 (three) Medical times Branch daily. psyllium 2020-08- No [id number] 1{packe Take 1 Univers 3.4 gram 2-03 -03 t} Packet by ity o f packet 00:00: 00:00 mouth 3 [place] 00 :00 (three) Medical times Branch daily. loperamide 2020-08 No [id number] 4mg Take 2 Univers 2 mg 09-26 capsules ity of capsule 00:00: 00:00 by mouth 3 [place] 00 :00 (three) Medical times Branch daily. pantoprazol 2020-08 No [id number] 40mg Take 1 Univers e 40 mg EC 09-26 tablet by ity of tablet 00:00: 00:00 mouth [place] 00 :00 daily. Medical Branch pantoprazol 2020-08 Yes 40mg 40 mg, Univ ers e 09-25 Oral, ity of (PROTONIX) 15:00: DAILY, [place] EC tablet 00 First dose Medi mariusz 40 mg on [facility] Branch 07/25/21 at 0900, Until Discontinu ed, Routine psyllium 2020-08 Yes 1{packe 1 Packet, U nivers (METAMUCIL 09-25 t} Oral, TID, ity of FIBER 14:00: First dose [place] SINGLES) 00 (after Medical 3.4 gram last Branch packet 1 modificati Packet on) on [facility] 07/25/21 at 0800, Until Discontinu ed, Routine diphenoxyla 2020-08- No 1{tbl} 1 tablet, Univers te-atropine 09-25 Oral, BID, i ty of (LOMOTIL) 14:00: 12:39 First dose [place] 2.5-0.025 00 :48 on [facility] Medical mg tablet 1 07/25/21 at [...] 1000mL at 999 Uni vers (NS) IV 2-01 12-01 mL/hr, IV ity of infusion 22:45: [...] Oral, ity of FIBER 15:00: 11:41 DAILY, [place] SINGLES) 00 :12 First dose Medic al [...] D5W 0.45% 2020-08- No IV Univers NaCl 30 07-24 Infusion, ity of (1/2NS) 1 L 07:45: [...] 30 Oral, ity of (TYLENOL) 07:31: Q6HPRN, [place] tablet 650 37 Starting Medic al mg [...] t} Oral, ity of FIBER 14:45: DAILY, [place] SINGLES) 00 First dose Medic al 3.4 gram on [facility] packet 1 06/01/21 at Packet 0945, Until Discontinu ed, Routine traMADoL 2020-08 Yes 50mg 50 mg, Univers (ULTRAM) 0-09 Oral, ity of tablet 50 14:39: Q6HPRN, [place] mg 34 Starting Medical on [facility] Branch 06/01/21 at 0939, Until Discontinu ed, Routine, Pain (scale 4-6) HYDROcodone 2020-08 Yes 1{tbl} 1 tablet, Univers -acetaminop 0-09 Oral, ity of hen (NORCO 14:39: Q6HPRN, [facility] [place] [facility] 5-325 mg 16 Starting Medi mariusz tablet 1 on [facility] tablet 06/01/21 at 0939, Until Discontinu ed, Routine, Pain (scale 7-10) ondansetron 2020-08 Yes 4mg 4 mg, Slow Univers (ZOFRAN 0-09 IV Push, ity of (PF)) 14:38: Q6HPRN, [place] injection 4 58 Starting Medi mariusz mg on [facility] 06/01/21 at 0938, Until Discontinu ed, Routine, Nausea and Vomiting (N/V) acetaminoph 2020-08 Yes 650mg 650 mg, Un piyush en 0-09 Oral, ity of (TYLENOL) 14:36: Q6HPRN, [place] tablet 650 07 Starting Medic al mg on [facility] 06/01/21 at 0936, Until Discontinu ed, Routine, Pain (scale 1-3), Temp > 38.5 C NaCl 0.9% 2020-08- No 1000mL at 125 Uni vers (NS) IV 0-09 10-10 mL/hr, ity of infusion 02:15: 14:57 Intravenou [place] 1,000 mL 00 :33 s, Medical CONTINUOUS [place] , Starting on 05/31/21 at 2115, Until 06/02/21 at 0957, Routine NaCl 0.9% 2020-08- No 1000mL at 999 Uni vers (NS) bolus 0-09 10-09 mL/hr, ity of infusion 01:45: 00:58 1,000 mL, [place] 1,000 mL 00 :00 IV Medical Piggyback, Branch ONCE, 1 dose, On Thu05/31/21 at 2045, STAT iopamidol 2020-08- No [id number] 100mL 100 mL, Univers (ISOVUE 0-09 10-09 [...] No 8mg 8 mg, Slow Univers (ZOFRAN 0-04 02-08 IV Push, ity of (PF)) 23:30: 22:47 ONCE, 1 [place] injection 8 00 :00 dose, On Medi mariusz mg [facility] Branch 05/31/21 at 1830, JOÃO NaCl 0.9% 2020-08- No 500mL at 999 Univ ers (NS) bolus 0-08 10-08 mL/hr, 500 it y of infusion 23:30: 23:59 mL, IV [place] 500 mL 00 :00 Piggyback, Medical ONCE, 1 Branch dose, On Thu05/31/21 at 1830, STAT psyllium Yes [id number] 1{packe Take 1 Univers 3.4 gram 9-29 t} Packet by ity of packet 00:00: mouth [place] 00 daily. Medical Branch psyllium Yes [id number] 1{packe Take 1 Univers 3.4 gram 9-29 t} Packet by ity of packet 00:00: mouth [place] 00 daily. Medical Branch psyllium Yes [id number] 1{packe Take 1 Univers 3.4 gram 9-29 t} Packet by ity of packet 00:00: mouth [place] 00 daily. Medical Branch psyllium Yes [id number] 1{packe Take 1 Univers 3.4 gram 9-29 t} Packet by ity of packet 00:00: mouth [place] 00 daily. Medical Branch psyllium Yes [id number] 1{packe Take 1 Univers 3.4 gram 9-29 t} Packet by ity of packet 00:00: mouth [place] 00 daily. Medical Branch psyllium 2020- No [id number] 1{packe Take 1 Univers 3.4 gram - 12-13 t} Packet by ity o f packet 00:00: 00:00 mouth [place] 00 :00 daily. [facility] Branch enoxaparin Yes 40mg 40 mg, Unive rs (LOVENOX) 05-21 Subcutaneo ity of injection 14:00: us, DAILY, [place] 40 mg 00 First dose Medical on Thu [place] 05/21/21 at 0900, Until Discontinu ed, Routine ondansetron Yes 4mg 4 mg, Slow Univers (ZOFRAN 05-21 IV Push, ity of (PF)) 00:15: Q6HPRN, [place] injection 4 13 Starting Medi mariusz mg on Thu05/20/21 at 191, Until Discontinu ed, Routine, Nausea and Vomiting (N/V) HYDROcodone Yes 1{tbl} 1 tablet, Univers -acetaminop 05-21 Oral, ity of hen (NORCO) 00:15: Q6HPRN, [place] 10-325 mg 10 Starting Medica l tablet 1 on Thu [place] tablet 05/20/21 at 1914, Until Discontinu ed, Routine, Pain (scale 7-10) traMADoL No 50mg 50 mg, Univer s (ULTRAM) 05-21 09-30 Oral, ity of tablet 50 00:15: 00:14 Q8HPRN, [place] mg 07 :07 Starting Medical on Thu05/20/21 at 1914, Until Thu05/22/21 at 1914, Routine, Pain (scale 4-6) acetaminoph Yes 650mg 650 mg, Un piyush en 05-21 Oral, ity of (TYLENOL) 00:15: [facility] [place] tablet 650 01 Starting Medic al mg on 05/20/21 at 1915, Until Discontinu ed, Routine, [...] Routine lactated 2020- No 2000mL at 999 [facility] ers ringers IV 05-20 mL/hr, ity of infusion 22:02: 22:36 2,000 mL, [place] 2,000 mL 00 :00 Intravenou Medic al s, ONCE, 1 Branch dose, On Thu05/20/21 at 1715, JOÃO ondansetron 2020- No 4mg 4 mg, Slow Univers (ZOFRAN 05-20 IV Push, ity of (PF)) 21:00: 20:15 ONCE, 1 [place] injection 4 00 :00 dose, On Medi mariusz mg [facility] 05/20/21 at 1600, JOÃO morpHINE 2020- No 4mg 4 mg, Slow Un piyush injection 4 05-20 IV Push, ity of mg 21:00: 20:15 ONCE, 1 [place] 00 :00 dose, On Medical [facility] Branch 05/20/21 at 1600, STAT NaCl 0.9% [...] on [place] [facility] 40 mg 05/09/21 at [place] 1999, Until Discontinu ed, Routine pantoprazol Yes 40mg 40 mg, Univ ers e 9-17 Oral, BID, ity of (PROTONIX) 01:00: First dose [place] EC tablet 00 on [place] [facility] 40 mg 05/09/21 at [place] 1999, Until Discontinu ed, Routine pantoprazol 2020- No [id number] 40mg Take 1 Univers e 40 mg EC 9-16 -16 tablet by ity of tablet 00:00: 05:59 mouth 2 [place] 00 :00 (two) Medical times [place] daily pantoprazol 2020- No [id number] 40mg Take 1 Univers e 40 mg EC 05-0916 tablet by ity of tablet 00:00: 05:59 mouth 2 [place] 00 :00 (two) Medical times [place] daily pantoprazol 2020- No [id number] 40mg Take 1 Univers e 40 mg EC 05-0916 tablet by ity of tablet 00:00: 05:59 mouth 2 [place] 00 :00 (two) Medical times [place] daily pantoprazol 2020- No [id number] 40mg Take 1 Univers e 40 mg EC 916 16 tablet by ity of tablet 00:00: 05:59 mouth 2 [place] 00 :00 (two) Medical times [place] daily pantoprazol 2020- No [id number] 40mg Take 1 Univers e 40 mg EC 16 -16 tablet by ity of tablet 00:00: 05:59 mouth 2 [place] 00 :00 (two) Medical times [place] daily pantoprazol 2020- No [id number] 40mg Take 1 Univers e 40 mg EC 9-16 -16 tablet by ity of tablet 00:00: 05:59 mouth 2 [place] 00 :00 (two) Medical times [place] daily pantoprazol 2020- No [id number] 40mg Take 1 Univers e 40 mg EC 9-16 -16 tablet by ity of tablet 00:00: 05:59 mouth 2 [place] 00 :00 (two) Medical times [place] daily enoxaparin 2021-0 Yes 40mg 40 mg, Unive rs (LOVENOX) 9-15 Subcutaneo ity of injection 16:15: us, Q24H, [place] 40 mg 00 First dose Medical [...] IV Push, ity of (PF)) 04:16: Q6HPRN, [place] injection 4 34 Starting Medi mariusz mg on [facility] 05/07/21 at 2316, Until Discontinu ed, Routine, Nausea and Vomiting (N/V) morpHINE 2020- No 4mg 4 mg, Slow Un piyush injection 4 05-08 IV Push, ity of mg 04:16: 04:15 Q4HPRN, [place] 32 :32 Starting Medical on [facility] 05/07/21 at 2316, Until Thu05/08/21 at 2315, Routine, Pain (scale 7-10) morpHINE 2020- No 4mg 4 mg, Slow Un piyush injection 4 05-08 IV Push, ity of mg 04:16: 04:15 Q4HPRN, [place] 32 :32 Starting Medical on [facility] 05/07/21 at 2316, Until Thu05/08/21 at 2315, Routine, Pain (scale 7-10) diazePAM 2020- No 5mg 5 mg, Slow Un piy[facility] (VALIUM) 05-08 IV Push, ity of injection 5 02:45: 02:49 ONCE, 1 [place] 00 :[place] dose, On [facility] 05/07/21 at 2145, STAT diazePAM 2020- No 5mg 5 mg, Slow [facility] [place] (VALIUM) 05-08 IV Push, ity of injection 5 02:45: 02:49 ONCE, 1 [place] 00 :[place] dose, On [facility] 05/07/21 at 2145, STAT iopamidol 2020- No [id number] 100mL 100 mL, Univers (ISOVUE 05-08 Intravenou ity o f 370-500 mL) 02:15: 01:08 s, ONCE, 1 [place] injection 00 :00 dose, On Medica l 100 mL [facility] 05/07/21 at 2115, Routine iopamidol 2020- No [id number] 100mL 100 mL, Univers (ISOVUE 05-08 Intravenou ity o f 370-500 mL) 02:15: 01:08 s, ONCE, 1 [place] injection 00 :00 dose, On Medica l 100 mL [facility] 05/07/21 at 2115, Routine morpHINE 2020- No 4mg 4 mg, Slow Un [place] injection 4 05-08 IV Push, ity of mg 01:45: 00:48 ONCE, 1 [place] 00 :00 dose, On Medical [facility] 05/07/21 at 2044, JOÃO ondansetron 2020- No 4mg 4 mg, Slow [facility] (ZOFRAN 05-08 IV Push, ity of (PF)) 01:45: 00:47 ONCE, 1 [place] injection 4 00 :00 dose, On Medi mariusz mg [facility] 05/07/21 at 2044, JOÃO morpHINE 2020- No 4mg 4 mg, Slow Un [place] injection 4 05-08 IV Push, ity of mg 01:45: 00:48 ONCE, 1 [place] 00 :00 dose, On Medical [facility] 05/07/21 at 2044, JOÃO ondansetron 2020- No 4mg 4 mg, Slow [facility] (ZOFRAN 05-08 IV Push, ity of (PF)) 01:45: 00:47 ONCE, 1 [place] injection 4 00 :00 dose, On Medi mariusz mg [facility] 05/07/21 at 204, JOÃO flu vaccine 2020- No .5mL 0.5 mL, Un piyush 6 months 08-24 Intramuscu ity of and up (PF) 17:30: 18:09 lar, ONCE, [place] (FLUZONE 00 :00 1 dose, Medical QUAD 08/24/20 Branch [id number] at 1130, (PF)) Routine syringe 0.5 mL sulfamethox 2020- No 1{tbl} 1 tablet, [facility] azole-trime 08-24 Oral, BID, i ty of thoprim 02:00: 13:59 7 doses, [place] (BACTRIM 00 :00 First dose Medic al DS) 800-160 on [place] Branch mg per 08/23/20 tablet 1 at 1999, tablet Last dose on 08/26/20 at 1999, JOÃO
Re ason for Anti-Infec tive: Empiric Therapy for Suspected Infection< br>Empiric Therapy Site: Skin / Soft tissue
Duration of therapy: 72 hours sulfamethox 2020- No [id number] 1{tbl} Take 1 [facility] azole-trime 08-24 tablet by it y 00:00: 05:59 mouth 2 [place] 800-160 mg 00 :00 (two) Medical per tablet times Branch daily for 7 days. enoxaparin 2019-08 Yes 40mg 40 mg, Unive rs (LOVENOX) 2-31 Subcutaneo ity of injection 21:30: us, Q24H, [place] 40 mg 00 First dose Medical on [facility] Branch 08/23/20 at 1530, Until Discontinu [...] f tablet 6 mg 03:12: - SEE [place] 40 INSTRUCTIO Medical NS, 1 Branch dose, Starting 08/22/20 at 2111, Until Discontinu ed, Routine, Insomnia, HS labetaloL 2019-08 Yes 10mg 10 mg, Univer s (NORMODYNE) 231 Slow IV ity o f injection 03:12: Push, [place] 10 mg 33 Q6HPRN, Medical Starting Branch 08/22/20 at 2111, Until Discontinu ed, Routine, hypertensi on ondansetron 2019-08 Yes 4mg 4 mg, Slow [facility] (ZOFRAN 31 IV Push, ity of (PF)) 03:12: Q6HPRN, [place] injection 4 08 Starting Medi mariusz mg Wed Branch 08/22/20 at 2111, Until Discontinu ed, Routine, Nausea and Vomiting (N/V) acetaminoph 2019-08 Yes 650mg 650 mg, Un piyush en Oral, ity of (TYLENOL) 03:11: Q6HPRN, [place] tablet 650 56 Starting Medic al mg [...] of 350 00:30: 00:14 s, ONCE, 1 [place] BULK-100 00 :00 dose, Mon Medica l mL) 07/09/20 Branch injection at 1830, 100 mL Routine cefTRIAXone 2019-08- No 1000mg 1,000 mg, Univers (ROCEPHIN) 09-08 IV ity of 1,000 mg in 23:30: 00:58 Piggyback, [place] NaCl 0.9% 00 :00 ONCE, 1 Medical (NS) 50 mL dose, Mon Bran ch MINI-BAG 07/09/20 at 1730, 50 mL
Reas on for Anti-Infec tive: Documented Infection< br>Documen dain Infection Site: HEENT
D uration of Therapy: Other (see Comments) NaCl 0.9% 2019-08- No 1000mL at 999 Uni vers (NS) bolus 1-16 11-17 mL/hr, ity of infusion 22:45: 00:07 1,000 mL, [place] 1,000 mL 00 :00 IV Medical Infusion, Branch ONCE, 1 dose, 07/09/20 at 1645, JOÃO amoxicillin 2019-08 Yes [id number] 1{tbl} Take 1 Univers -clavulanat 1-16 tablet by ity of e 875-125 00:00: mouth [place] mg per 00 every 12 Medical tablet (twelve) Branch hours. amoxicillin 2019-08 No [id number] 1{tbl} Take 1 Univers -clavulanat 1-16 01 tablet by it y of e 875-125 [...] of Therapy: 7 days ibuprofen 2020-1 Yes [id number] 800mg Take 1 U nivers 800 mg 0-08 tablet by ity of tablet 00:00: mouth [place] 00 every 6 Medical (six) Branch hours as needed for Pain (scale 4-6). loperamide 2020- Yes [id number] 4mg Take 2 U nivers 2 mg 0-08 capsules ity of capsule 00:00: by mouth 4 [place] 00 (four) Medical times Branch daily. diphenoxyla 2020- Yes [id number] 1{tbl} Take 1 Univers te-atropine 0-08 tablet by ity of 2.5-0.025 00:00: mouth [place] mg tablet 00 every 8 Medical (eight) Branch hours. psyllium 2020- Yes [id number] 3{packe Take 3 Univers 3.4 gram 0-08 t} Packets by ity o f packet 00:00: mouth 3 [place] 00 (three) Medical times Branch daily. psyllium 2020- Yes [id number] 3{packe Take 3 Univers 3.4 gram 0-08 t} Packets by ity o f packet 00:00: mouth 3 [place] 00 (three) Medical times Branch daily. diphenoxyla 2020- Yes [id number] 1{tbl} Take 1 Univers te-atropine 0-08 tablet by ity of 2.5-0.025 00:00: mouth [place] mg tablet 00 every 8 Medical (eight) Branch hours. loperamide 2020- Yes [id number] 4mg Take 2 U nivers 2 mg 0-08 capsules ity of capsule 00:00: by mouth 4 [place] 00 (four) Medical times Branch daily. ibuprofen 2020- Yes [id number] 800mg Take 1 U nivers 800 mg 0-08 tablet by ity of tablet 00:00: mouth [place] 00 every 6 Medical (six) Branch hours as needed for Pain (scale 4-6). psyllium 2020-1 Yes [id number] 3{packe Take 3 Univers 3.4 gram 0-08 t} Packets by ity o f packet 00:00: mouth 3 [place] 00 (three) Medical times Branch daily. diphenoxyla 2020- Yes [id number] 1{tbl} Take 1 Univers te-atropine 0-08 tablet by ity of 2.5-0.025 00:00: mouth [place] mg tablet 00 every 8 Medical (eight) Branch hours. loperamide 2020-1 Yes [id number] 4mg Take 2 U nivers 2 mg 0-08 capsules ity of capsule 00:00: by mouth 4 [place] 00 (four) Medical times Branch daily. ibuprofen 2020-1 Yes [id number] 800mg Take 1 U nivers 800 mg 0-08 tablet by ity of tablet 00:00: mouth [place] 00 every 6 Medical (six) Branch hours as needed for Pain (scale 4-6). psyllium 2020-1 Yes [id number] 3{packe Take 3 Univers 3.4 gram 0-08 t} Packets by ity o f packet 00:00: mouth 3 [place] 00 (three) Medical times Branch daily. diphenoxyla 2020-1 Yes [id number] 1{tbl} Take 1 Univers te-atropine 0-08 tablet by ity of 2.5-0.025 00:00: mouth [place] mg tablet 00 every 8 Medical (eight) Branch hours. loperamide 2020-1 Yes [id number] 4mg Take 2 U nivers 2 mg 0-08 capsules ity of capsule 00:00: by mouth 4 [place] 00 (four) Medical times Branch daily. ibuprofen 2020-1 Yes [id number] 800mg Take 1 U nivers 800 mg 0-08 tablet by ity of tablet 00:00: mouth [place] 00 every 6 Medical (six) Branch hours as needed for Pain (scale 4-6). psyllium 2020-1 Yes [id number] 3{packe Take 3 Univers 3.4 gram 0-08 t} Packets by ity o f packet 00:00: mouth 3 [place] 00 (three) Medical times Branch daily. diphenoxyla 2020-1 Yes [id number] 1{tbl} Take 1 Univers te-atropine 0-08 tablet by ity of 2.5-0.025 00:00: mouth [place] mg tablet 00 every 8 Medical (eight) Branch hours. loperamide 2020-1 Yes [id number] 4mg Take 2 U nivers 2 mg 0-08 capsules ity of capsule 00:00: by mouth 4 [place] 00 (four) Medical times Branch daily. ibuprofen 2020-1 Yes [id number] 800mg Take 1 U nivers 800 mg 0-08 tablet by ity of tablet 00:00: mouth [place] 00 every 6 Medical (six) Branch hours as needed for Pain (scale 4-6). psyllium 2020-1 Yes [id number] 3{packe Take 3 Univers 3.4 gram 0-08 t} Packets by ity o f packet 00:00: mouth 3 [place] 00 (three) Medical times Branch daily. diphenoxyla 2020-1 Yes [id number] 1{tbl} Take 1 Univers te-atropine 0-08 tablet by ity of 2.5-0.025 00:00: mouth [place] mg tablet 00 every 8 Medical (eight) Branch hours. loperamide 2020-1 Yes [id number] 4mg Take 2 U nivers 2 mg 0-08 capsules ity of capsule 00:00: by mouth 4 [place] 00 (four) Medical times Branch daily. ibuprofen 2020-1 Yes [id number] 800mg Take 1 U nivers 800 mg 0-08 tablet by ity of tablet 00:00: mouth [place] 00 every 6 Medical (six) Branch hours as needed for Pain (scale 4-6). psyllium 2020-1 Yes [id number] 3{packe Take 3 [facility] 3.4 gram 0-08 t} Packets by ity o f packet 00:00: mouth 3 [place] 00 (three) Medical times Branch daily. diphenoxyla 2020-1 Yes [id number] 1{tbl} Take 1 Univers te-atropine 0-08 tablet by ity of 2.5-0.025 00:00: mouth [place] mg tablet 00 every 8 Medical (eight) Branch hours. loperamide 2020-1 Yes [id number] 4mg Take 2 U nivers 2 mg 0-08 capsules ity of capsule 00:00: by mouth 4 [place] 00 (four) Medical times Branch daily. ibuprofen 2020-1 Yes [id number] 800mg Take 1 U nivers 800 mg 0-08 tablet by ity of tablet 00:00: mouth [place] 00 every 6 Medical (six) Branch hours as needed for Pain (scale 4-6). psyllium 2020-1 Yes [id number] 3{packe Take 3 [facility] 3.4 gram 0-08 t} Packets by ity o f packet 00:00: mouth 3 [place] 00 (three) Medical times Branch daily. diphenoxyla 2020-1 Yes [id number] 1{tbl} Take 1 Univers te-atropine 0-08 tablet by ity of 2.5-0.025 00:00: mouth [place] mg tablet 00 every 8 Medical (eight) Branch hours. loperamide 2020-1 Yes [id number] 4mg Take 2 U nivers 2 mg 0-08 capsules ity of capsule 00:00: by mouth 4 [place] 00 (four) Medical times Branch daily. ibuprofen 2019- Yes [id number] 800mg Take 1 U nivers 800 mg 0-08 tablet by ity of tablet 00:00: mouth [place] 00 every 6 Medical (six) Branch hours as needed for Pain (scale 4-6). psyllium 2020- Yes [id number] 3{packe Take 3 [facility] 3.4 gram 0-08 t} Packets by ity o f packet 00:00: mouth 3 [place] 00 (three) Medical times Branch daily. diphenoxyla 2020-1 Yes [id number] 1{tbl} Take 1 Univers te-atropine 0-08 tablet by ity of 2.5-0.025 00:00: mouth [place] mg tablet 00 every 8 Medical (eight) Branch hours. loperamide 2019- Yes [id number] 4mg Take 2 U nivers 2 mg 0-08 capsules ity of capsule 00:00: by mouth 4 [place] 00 (four) Medical times Branch daily. ibuprofen 2019- Yes [id number] 800mg Take 1 U nivers 800 mg 0-08 tablet by ity of tablet 00:00: mouth [place] 00 every 6 Medical (six) Branch hours as needed for Pain (scale 4-6). psyllium 2020-1 Yes [id number] 3{packe Take 3 Univers 3.4 gram 0-08 t} Packets by ity o f packet 00:00: mouth 3 [place] 00 (three) Medical times Branch daily. diphenoxyla 2020-1 Yes [id number] 1{tbl} Take 1 Univers te-atropine 0-08 tablet by ity of 2.5-0.025 00:00: mouth [place] mg tablet 00 every 8 Medical (eight) Branch hours. loperamide 2020-1 Yes [id number] 4mg Take 2 U nivers 2 mg 0-08 capsules ity of capsule 00:00: by mouth 4 [place] 00 (four) Medical times Branch daily. ibuprofen 2020- Yes [id number] 800mg Take 1 U nivers 800 mg 0-08 tablet by ity of tablet 00:00: mouth [place] 00 every 6 Medical (six) Branch hours as needed for Pain (scale 4-6). psyllium 2020- Yes [id number] 3{packe Take 3 [facility] 3.4 gram 0-08 t} Packets by ity o f packet 00:00: mouth 3 [place] 00 (three) Medical times Branch daily. diphenoxyla 2020- Yes [id number] 1{tbl} Take 1 Univers te-atropine 0-08 tablet by ity of 2.5-0.025 00:00: mouth [place] mg tablet 00 every 8 Medical (eight) Branch hours. loperamide 2019- Yes [id number] 4mg Take 2 U nivers 2 mg 0-08 capsules ity of capsule 00:00: by mouth 4 [place] 00 (four) Medical times Branch daily. ibuprofen 2019- Yes [id number] 800mg Take 1 U nivers 800 mg 0-08 tablet by ity of tablet 00:00: mouth [place] 00 every 6 Medical (six) Branch hours as needed for Pain (scale 4-6). psyllium 2019- Yes [id number] 3{packe Take 3 Univers 3.4 gram 0-08 t} Packets by ity o f packet 00:00: mouth 3 [place] 00 (three) Medical times Branch daily. diphenoxyla 2019- Yes [id number] 1{tbl} Take 1 Univers te-atropine 0-08 tablet by ity of 2.5-0.025 00:00: mouth [place] mg tablet 00 every 8 Medical (eight) Branch hours. loperamide 2019- Yes [id number] 4mg Take 2 U nivers 2 mg 0-08 capsules ity of capsule 00:00: by mouth 4 [place] 00 (four) Medical times Branch daily. ibuprofen 2019- Yes [id number] 800mg Take 1 U nivers 800 mg 0-08 tablet by ity of tablet 00:00: mouth [place] 00 every 6 Medical (six) Branch hours as needed for Pain (scale 4-6). psyllium 2019- Yes [id number] 3{packe Take 3 Univers 3.4 gram 0-08 t} Packets by ity o f packet 00:00: mouth 3 [place] 00 (three) Medical times Branch daily. diphenoxyla 2019- Yes [id number] 1{tbl} Take 1 Univers te-atropine 0-08 tablet by ity of 2.5-0.025 00:00: mouth [place] mg tablet 00 every 8 Medical (eight) Branch hours. loperamide 2019- Yes [id number] 4mg Take 2 U nivers 2 mg 0-08 capsules ity of capsule 00:00: by mouth 4 [place] 00 (four) Medical times Branch daily. ibuprofen 2019-08 Yes [id number] 800mg Take 1 U nivers 800 mg 0-08 tablet by ity of tablet 00:00: mouth [place] 00 every 6 Medical (six) Branch hours as needed for Pain (scale 4-6). psyllium 2019-08 Yes [id number] 3{packe Take 3 [facility] 3.4 gram 0-08 t} Packets by ity o f packet 00:00: mouth 3 [place] 00 (three) Medical times Branch daily. diphenoxyla 2019-08 Yes [id number] 1{tbl} Take 1 Univers te-atropine 0-08 tablet by ity of 2.5-0.025 00:00: mouth [place] mg tablet 00 every 8 Medical (eight) Branch hours. loperamide 2019-08 Yes [id number] 4mg Take 2 U nivers 2 mg 0-08 capsules ity of capsule 00:00: by mouth 4 [place] 00 (four) Medical times Branch daily. ibuprofen 2019-08 Yes [id number] 800mg Take 1 U nivers 800 mg 0-08 tablet by ity of tablet 00:00: mouth [place] 00 every 6 Medical (six) Branch hours as needed for Pain (scale 4-6). acetaminoph 2019-08 No [id number] 650mg Take 2 Univers en 325 mg 0-08 10-09 tablets by ity of tablet 00:00: 04:59 mouth [place] 00 :00 every 6 Medical (six) Branch hours as needed for Pain (scale 1-3). acetaminoph 2019-08 No [id number] 650mg Take 2 Univers en 325 mg 0-08 10-09 tablets by ity of tablet 00:00: 04:59 mouth [place] 00 :00 every 6 Medical (six) Branch hours as needed for Pain (scale 1-3). acetaminoph 2019-08 No [id number] 650mg Take 2 Univers en 325 mg 0-08 10-09 tablets by ity of tablet 00:00: 04:59 mouth [place] 00 :00 every 6 Medical (six) Branch hours as needed for Pain (scale 1-3). acetamino 2019-08- No [id number] 650mg Take 2 Univers en 325 mg 0-08 10-09 tablets by ity of tablet 00:00: 04:59 mouth [place] 00 :00 every 6 Medical (six) Branch hours as needed for Pain (scale 1-3). acetamino 2019-08- No [id number] 650mg Take 2 Univers en 325 mg 0-08 10-09 tablets by ity of tablet 00:00: 04:59 mouth [place] 00 :00 every 6 Medical (six) Branch hours as needed for Pain (scale 1-3). acetamino 2019-08- No [id number] 650mg Take 2 Univers en 325 mg 0-08 10-09 tablets by ity of tablet 00:00: 04:59 mouth [place] 00 :00 every 6 Medical (six) Branch hours as needed for Pain (scale 1-3). acetamino 2019-08- No [id number] 650mg Take 2 Univers en 325 mg 0-08 10-09 tablets by ity of tablet 00:00: 04:59 mouth [place] 00 :00 every 6 Medical (six) Branch hours as needed for Pain (scale 1-3). [facility] No [id number] 650mg Take 2 Univers en 325 mg 0-08 10-09 tablets by ity of tablet 00:00: 04:59 mouth [place] 00 :00 every 6 Medical (six) Branch hours as needed for Pain (scale 1-3). acetamino 2019-08- No [id number] 650mg Take 2 Univers en 325 mg 0-08 10-09 tablets by ity of tablet 00:00: 04:59 mouth [place] 00 :00 every 6 Medical (six) Branch hours as needed for Pain (scale 1-3). acetamino 2019-08- No [id number] 650mg Take 2 Univers en 325 mg 0-08 10-09 tablets by ity of tablet 00:00: 04:59 mouth [place] 00 :00 every 6 Medical (six) Branch hours as needed for Pain (scale 1-3). acetamino 2019-08- No [id number] 650mg Take 2 Univers en 325 mg 0-08 10-09 tablets by ity of tablet 00:00: 04:59 mouth [place] 00 :00 every 6 Medical (six) Branch hours as needed for Pain (scale 1-3). acetaminoph 2019-08 No [id number] 650mg Take 2 Univers en 325 mg 0-08 10-09 tablets by ity of tablet 00:00: 04:59 mouth [place] 00 :00 every 6 Medical (six) Branch hours as needed for Pain (scale 1-3). acetaminoph 2019-08 No [id number] 650mg Take 2 Univers en 325 mg 0-08 10-09 tablets by ity of tablet 00:00: 04:59 mouth [place] 00 :00 every 6 Medical (six) Branch hours as needed for Pain (scale 1-3). acetaminoph 2019-08 No [id number] 650mg Take 2 Univers en 325 mg 0-08 10-09 tablets by ity of tablet 00:00: 04:59 mouth [place] 00 :00 every 6 Medical (six) Branch hours as needed for Pain (scale 1-3). psyllium 2019-08- No [id number] 3{packe Take 3 Univers 3.4 gram 0-08 -16 t} Packets by ity of packet 00:00: 00:00 mouth 3 [place] 00 :00 (three) Medical times Branch daily. diphenoxyla 2019-08- No [id number] 1{tbl} Take 1 Univers te-atropine 0-08 -16 tablet by it y of 2.5-0.025 00:00: 00:00 mouth [place] mg tablet 00 :00 every 8 Medical (eight) Branch hours. loperamide 2019-08- No [id number] 4mg Take 2 Univers 2 mg 0-08 09-16 capsules ity of capsule 00:00: 00:00 by mouth 4 [place] 00 :00 (four) Medical times Branch daily. ibuprofen 2019-08 No [id number] 800mg Take 1 [facility] 800 mg 0-08 -16 tablet by ity of tablet 00:00: 00:00 mouth [place] 00 :00 every 6 Medical (six) Branch hours as needed for Pain (scale 4-6). acetaminoph 2019-08 No [id number] 650mg Take 2 Univers en 325 mg 0-08 09-16 tablets by ity of tablet 00:00: 00:00 mouth [place] 00 :00 every 6 Medical (six) Branch hours as needed for Pain (scale 1-3). psyllium 2019-08 No [id number] 3{packe Take 3 Univers 3.4 gram 0-08 09-16 t} Packets by ity of packet 00:00: 00:00 mouth 3 [place] 00 :00 (three) Medical times Branch daily. diphenoxyla 2019-08 No [id number] 1{tbl} Take 1 Univers te-atropine 0-08 09-16 tablet by it y of 2.5-0.025 00:00: 00:00 mouth [place] mg tablet 00 :00 every 8 Medical (eight) Branch hours. loperamide 2019-08 No [id number] 4mg Take 2 Univers 2 mg 0-08 09-16 capsules ity of capsule 00:00: 00:00 by mouth 4 [place] 00 :00 (four) Medical times Branch daily. ibuprofen 2019-08 No [id number] 800mg Take 1 [facility] 800 mg 0-08 09-16 tablet by ity of tablet 00:00: 00:00 mouth [place] 00 :00 every 6 Medical (six) Branch hours as needed for Pain (scale 4-6). acetaminoph 2019-08 No [id number] 650mg Take 2 Univers en 325 mg 0-08 09-16 tablets by ity of tablet 00:00: 00:00 mouth [place] 00 :00 every 6 Medical (six) Branch hours as needed for Pain (scale 1-3). acetaminoph 2019-08 No [id number] 650mg Take 2 Univers en 325 mg 0-08 10-08 tablets by ity of tablet 00:00: 00:00 mouth [place] 00 :00 every 6 Medical (six) Branch hours as needed for Pain (scale 1-3). ibuprofen 2019-08 No [id number] 800mg Take 1 [facility] 800 mg 0-08 10-08 tablet by ity of tablet 00:00: 00:00 mouth [place] 00 :00 every 6 Medical (six) Branch hours as needed for Pain (scale 4-6). loperamide 2019-08 No [id number] 4mg Take 2 Univers 2 mg 0-08 10-08 capsules ity of capsule 00:00: 00:00 by mouth 4 [place] 00 :00 (four) Medical times Branch daily. diphenoxyla 2019-08- No [id number] 1{tbl} Take 1 Univers te-atropine 0-08 10-08 tablet by it y of 2.5-0.025 00:00: 00:00 mouth [place] mg tablet 00 :00 every 8 Medical (eight) Branch hours. psyllium 2019-08- No [id number] 3{packe Take 3 Univers 3.4 gram 0-08 [...] on Sun Medical 3.4 gram 05/27/20 at [facility] h packet 1 1999, Packet Until Discontinu ed, Routine loperamide 2019-08 2020- No 4mg 4 mg, Unive rs (IMODIUM 0-04 10-05 Oral, TID, ity of A-D) 19:00: 12:56 First dose [place] capsule 4 00 :31 (after Medical mg last Branch modificati on) on [place] 05/27/20 at 1400, Until Discontinu ed, Routine [...] 1000mL at 999 Univ ers ringers IV 0- 10-03 mL/hr, ity of infusion 20:08: 01:57 1,000 mL, [place] 1,000 mL 00 :00 Intravenou Medic al s, ONCE, 1 Branch dose, 05/25/20 at 1515, Routine magnesium 2019-08- No 4g 4 g, IV Univ ers sulfate in 005-24 Piggyback, it y of water 4 22:15: 22:07 ONCE, 1 [place] gram/50 mL 00 :00 dose, [place] Medi mariusz (8 %) IV 05/24/20 at [facility] h Piggyback 4 1715, g Routine [...] 17:00: 17:00 Starting [place] 16 :16 [facility] Medical 05/24/20 at Branch 1200, Until Discontinu ed, Routine FENTanyl PF 2019-08 No Slow IV Un piyush (SUBLIMAZE 005-24 Push, PRN, it y of (PF)) 16:01: 16:01 Starting [place] injection 03 :03 [facility] Medical 05/24/20 at Branch 1101, Until Discontinu ed, Routine loperamide 2019-08 No 2mg 2 mg, Unive rs (IMODIUM 005-25 Oral, BID, ity of A-D) 13:00: 12:33 First dose [place] capsule 2 00 :17 on [place] Medical mg 05/24/20 at Branch 0800, Until Discontinu ed, Routine iohexol 2020-0 2020- No 100mL 100 mL, Unive rs (OMNIPAQUE 05-23 09 Intravenou it y of 350 14:54: 14:54 s, ONCE, 1 [place] BULK-100 00 :00 dose, Thu Medica l mL) 05/23/20 at Branch injection 1015, 100 mL Routine docusate 2019-0 2020- No 100mg 100 mg, Univ ers (COLACE) 05-23 1002 Oral, ity of capsule 100 14:00: 17:31 DAILY, [place] mg 00 :24 First dose Medical on Thu Branch 05/23/20 at 0900, Until Discontinu ed, Routine levoFLOXaci 2019- 2020- No 750mg 750 mg, U nivers n 05-23 1007 Oral, Q24H ity of (LEVAQUIN) 04:30: 18:00 ABX, First [place] tablet 750 00 :16 dose on Medica l mg Tu Branch 05/22/20 at 2330, Until Discontinu ed, [...] 05-23 Oral, ity of (TYLENOL) 03:13: Q6HPRN, [place] tablet 650 36 Starting Medic al mg Tue [place] 05/22/20 at 2213, Until Discontinu ed, Routine, Pain (scale 1-3) morpHINE 2020-0 2020- No 4mg 4 mg, Slow Un piyush injection 4 05-22 IV Push, ity of mg 03:30: 03:13 ONCE, 1 [place] 00 :00 dose, Mon Medical 05/21/20 at [...] ity of (PF)) 03:45: 03:36 ONCE, 1 [place] injection 4 00 :00 dose, Sat Med ical mg 05/19/20 at Branch 2245, JOÃO morpHINE 2020-0 2020- No 4mg 4 mg, Slow Un piyush injection 4 05-20 IV Push, ity of mg 03:45: 03:36 ONCE, 1 [place] 00 :00 dose, Sat Medical 05/19/20 at Branch 2245, STAT NaCl 0.9% 2020-0 2020- No 1000mL at 999 Uni vers (NS) bolus 05-20 mL/hr, ity of infusion 03:45: 11:13 1,000 mL, [place] 1,000 mL 00 :00 IV Medical Piggyback, Branch ONCE, 1 dose, 05/19/20 at 2245, STAT ibuprofen 2020-0 Yes [id number] 800mg Take 1 U nivers 800 mg 9-18 tablet by ity of tablet 00:00: mouth [place] 00 every 6 Medical (six) Branch hours as needed for Pain (scale 4-6). levoFLOXaci 2020-0 Yes [id number] 750mg Take 1 Univers n 750 mg 9-18 tablet by ity of tablet 00:00: mouth [place] 00 every 24 Medical (twenty-fo Branch ur) hours. loperamide 2020-0 Yes [id number] 2mg Take 1 U nivers 2 mg 9-18 capsule by ity of capsule 00:00: mouth [place] 00 daily. Medical Branch ibuprofen 2020-0 Yes [id number] 800mg Take 1 U nivers 800 mg 9-18 tablet by ity of tablet 00:00: mouth [place] 00 every 6 Medical (six) Branch hours as needed for Pain (scale 4-6). levoFLOXaci 2020-0 Yes [id number] 750mg Take 1 Univers n 750 mg 9-18 tablet by ity of tablet 00:00: mouth [place] 00 every 24 Medical (twenty-fo Branch ur) hours. loperamide 2020-0 Yes [id number] 2mg Take 1 U nivers 2 mg 9-18 capsule by ity of capsule 00:00: mouth [place] 00 daily. Medical Branch ibuprofen 2020-0 Yes [id number] 800mg Take 1 U nivers 800 mg 9-18 tablet by ity of tablet 00:00: mouth [place] 00 every 6 Medical (six) Branch hours as needed for Pain (scale 4-6). levoFLOXaci 2020-0 Yes [id number] 750mg Take 1 Univers n 750 mg 9-18 tablet by ity of tablet 00:00: mouth [place] 00 every 24 Medical (twenty-fo Branch ur) hours. loperamide 2020-0 Yes [id number] 2mg Take 1 U nivers 2 mg 9-18 capsule by ity of capsule 00:00: mouth [place] 00 daily. Medical Branch ibuprofen 2020-0 Yes [id number] 800mg Take 1 U nivers 800 mg 9-18 tablet by ity of tablet 00:00: mouth [place] 00 every 6 Medical (six) Branch hours as needed for Pain (scale 4-6). levoFLOXaci 2020-0 Yes [id number] 750mg Take 1 Univers n 750 mg 9-18 tablet by ity of tablet 00:00: mouth [place] 00 every 24 Medical (twenty-fo Branch ur) hours. loperamide 2020-0 Yes [id number] 2mg Take 1 U nivers 2 mg 9-18 capsule by ity of capsule 00:00: mouth [place] 00 daily. Medical Branch ibuprofen 2020-0 Yes [id number] 800mg Take 1 U nivers 800 mg 9-18 tablet by ity of tablet 00:00: mouth [place] 00 every 6 Medical (six) Branch hours as needed for Pain (scale 4-6). levoFLOXaci 2020-0 Yes [id number] 750mg Take 1 Univers n 750 mg 9-18 tablet by ity of tablet 00:00: mouth [place] 00 every 24 Medical (twenty-fo Branch ur) hours. loperamide 2020-0 Yes [id number] 2mg Take 1 U nivers 2 mg 9-18 capsule by ity of capsule 00:00: mouth [place] 00 daily. Medical Branch ibuprofen 2020-0 Yes [id number] 800mg Take 1 U nivers 800 mg 9-18 tablet by ity of tablet 00:00: mouth [place] 00 every 6 Medical (six) Branch hours as needed for Pain (scale 4-6). levoFLOXaci 2020-0 Yes [id number] 750mg Take 1 Univers n 750 mg 9-18 tablet by ity of tablet 00:00: mouth [place] 00 every 24 Medical (twenty-fo Branch ur) hours. loperamide 2020-0 Yes [id number] 2mg Take 1 U nivers 2 mg 9-18 capsule by ity of capsule 00:00: mouth [place] 00 daily. Medical Branch ibuprofen 2020-0 Yes [id number] 800mg Take 1 U nivers 800 mg 9-18 tablet by ity of tablet 00:00: mouth [place] 00 every 6 Medical (six) Branch hours as needed for Pain (scale 4-6). levoFLOXaci 2020-0 Yes [id number] 750mg Take 1 Univers n 750 mg 9-18 tablet by ity of tablet 00:00: mouth [place] 00 every 24 Medical (twenty-fo Branch ur) hours. loperamide 2020-0 Yes [id number] 2mg Take 1 U nivers 2 mg 9-18 capsule by ity of capsule 00:00: mouth [place] 00 daily. Medical Branch ibuprofen 2020-0 Yes [id number] 800mg Take 1 U nivers 800 mg 9-18 tablet by ity of tablet 00:00: mouth [place] 00 every 6 Medical (six) Branch hours as needed for Pain (scale 4-6). levoFLOXaci 2020-0 Yes [id number] 750mg Take 1 Univers n 750 mg 9-18 tablet by ity of tablet 00:00: mouth [place] 00 every 24 Medical (twenty-fo Branch ur) hours. loperamide 2020-0 Yes [id number] 2mg Take 1 U nivers 2 mg 9-18 capsule by ity of capsule 00:00: mouth [place] 00 daily. Medical Branch ibuprofen 2020-0 Yes [id number] 800mg Take 1 U nivers 800 mg 9-18 tablet by ity of tablet 00:00: mouth [place] 00 every 6 Medical (six) Branch hours as needed for Pain (scale 4-6). levoFLOXaci 2020-0 Yes [id number] 750mg Take 1 Univers n 750 mg 9-18 tablet by ity of tablet 00:00: mouth [place] 00 every 24 Medical (twenty-fo Branch ur) hours. loperamide 2020-0 Yes [id number] 2mg Take 1 U nivers 2 mg 9-18 capsule by ity of capsule 00:00: mouth [place] 00 daily. Medical Branch ibuprofen 2020-0 Yes [id number] 800mg Take 1 U nivers 800 mg 9-18 tablet by ity of tablet 00:00: mouth [place] 00 every 6 Medical (six) Branch hours as needed for Pain (scale 4-6). levoFLOXaci 2020-0 Yes [id number] 750mg Take 1 Univers n 750 mg 9-18 tablet by ity of tablet 00:00: mouth [place] 00 every 24 Medical (twenty-fo Branch ur) hours. loperamide 2020-0 Yes [id number] 2mg Take 1 U nivers 2 mg 9-18 capsule by ity of capsule 00:00: mouth [place] 00 daily. Medical Branch ibuprofen 2020-0 Yes [id number] 800mg Take 1 U nivers 800 mg 9-18 tablet by ity of tablet 00:00: mouth [place] 00 every 6 Medical (six) Branch hours as needed for Pain (scale 4-6). levoFLOXaci 2020-0 Yes [id number] 750mg Take 1 Univers n 750 mg 9-18 tablet by ity of tablet 00:00: mouth [place] 00 every 24 Medical (twenty-fo Branch ur) hours. loperamide 2020-0 Yes [id number] 2mg Take 1 U nivers 2 mg 9-18 capsule by ity of capsule 00:00: mouth [place] 00 daily. Medical Branch ibuprofen 2020-0 Yes [id number] 800mg Take 1 U nivers 800 mg 9-18 tablet by ity of tablet 00:00: mouth [place] 00 every 6 Medical (six) Branch hours as needed for Pain (scale 4-6). levoFLOXaci 2020-0 Yes [id number] 750mg Take 1 Univers n 750 mg 9-18 tablet by ity of tablet 00:00: mouth [place] 00 every 24 Medical (twenty-fo Branch ur) hours. loperamide 2020-0 Yes [id number] 2mg Take 1 U nivers 2 mg 9-18 capsule by ity of capsule 00:00: mouth [place] 00 daily. Medical Branch ibuprofen 2020-0 Yes [id number] 800mg Take 1 U nivers 800 mg 9-18 tablet by ity of tablet 00:00: mouth [place] 00 every 6 Medical (six) Branch hours as needed for Pain (scale 4-6). levoFLOXaci 2020-0 Yes [id number] 750mg Take 1 Univers n 750 mg 9-18 tablet by ity of tablet 00:00: mouth [place] 00 every 24 Medical (twenty-fo Branch ur) hours. loperamide 2020-0 Yes [id number] 2mg Take 1 U nivers 2 mg 9-18 capsule by ity of capsule 00:00: mouth [place] 00 daily. Medical Branch acetaminoph 2020-0 2020- No [id number] 650mg Take 2 Univers en 325 mg 9-18 09-19 tablets by ity of tablet 00:00: 04:59 mouth [place] 00 :00 every 6 Medical (six) Branch hours as needed for Pain (scale 1-3). acetaminoph 2020-0 2020- No [id number] 650mg Take 2 Univers en 325 mg 9-18 09-19 tablets by ity of tablet 00:00: 04:59 mouth [place] 00 :00 every 6 Medical (six) Branch hours as needed for Pain (scale 1-3). acetaminoph 2020-0 2020- No [id number] 650mg Take 2 Univers en 325 mg 9-18 09-19 tablets by ity of tablet 00:00: 04:59 mouth [place] 00 :00 every 6 Medical (six) Branch hours as needed for Pain (scale 1-3). acetaminoph No [id number] 650mg Take 2 Univers en 325 mg 9-18 09-19 tablets by ity of tablet 00:00: 04:59 mouth [place] 00 :00 every 6 Medical (six) Branch hours as needed for Pain (scale 1-3). acetaminoph No [id number] 650mg Take 2 Univers en 325 mg 9-18 09-19 tablets by ity of tablet 00:00: 04:59 mouth [place] 00 :00 every 6 Medical (six) Branch hours as needed for Pain (scale 1-3). acetaminoph No [id number] 650mg Take 2 Univers en 325 mg 9-18 09-19 tablets by ity of tablet 00:00: 04:59 mouth [place] 00 :00 every 6 Medical (six) Branch hours as needed for Pain (scale 1-3). acetaminoph No [id number] 650mg Take 2 Univers en 325 mg 9-18 09-19 tablets by ity of tablet 00:00: 04:59 mouth [place] 00 :00 every 6 Medical (six) Branch hours as needed for Pain (scale 1-3). acetaminoph No [id number] 650mg Take 2 Univers en 325 mg 9-18 09-19 tablets by ity of tablet 00:00: 04:59 mouth [place] 00 :00 every 6 Medical (six) Branch hours as needed for Pain (scale 1-3). acetaminoph No [id number] 650mg Take 2 Univers en 325 mg 9-18 09-19 tablets by ity of tablet 00:00: 04:59 mouth [place] 00 :00 every 6 Medical (six) Branch hours as needed for Pain (scale 1-3). acetaminoph No [id number] 650mg Take 2 Univers en 325 mg 9-18 09-19 tablets by ity of tablet 00:00: 04:59 mouth [place] 00 :00 every 6 Medical (six) Branch hours as needed for Pain (scale 1-3). acetaminoph No [id number] 650mg Take 2 Univers en 325 mg 9-18 09-19 tablets by ity of tablet 00:00: 04:59 mouth [place] 00 :00 every 6 Medical (six) Branch hours as needed for Pain (scale 1-3). acetaminoph 2019- No [id number] 650mg Take 2 Univers en 325 mg 9-18 -19 tablets by ity of tablet 00:00: 04:59 mouth [place] 00 :00 every 6 Medical (six) Branch hours as needed for Pain (scale 1-3). acetaminoph 2019- No [id number] 650mg Take 2 Univers en 325 mg 9-18 -19 tablets by ity of tablet 00:00: 04:59 mouth [place] 00 :00 every 6 Medical (six) Branch hours as needed for Pain (scale 1-3). acetaminoph No [id number] 650mg Take 2 Univers en 325 mg 9-18 10-08 tablets by ity of tablet 00:00: 00:00 mouth [place] 00 :00 every 6 Medical (six) Branch hours as needed for Pain (scale 1-3). ibuprofen No [id number] 800mg Take 1 Univers 800 mg 9-18 10-08 tablet by ity of tablet 00:00: 00:00 mouth [place] 00 :00 every 6 Medical (six) Branch hours as needed for Pain (scale 4-6). levoFLOXaci No [id number] 750mg Take 1 Univers n 750 mg 9-18 10-08 tablet by ity o f tablet 00:00: 00:00 mouth [place] 00 :00 every 24 Medical (twenty-fo Branch ur) hours. loperamide No [id number] 2mg Take 1 Univers 2 mg 9-18 10-08 capsule by ity of capsule 00:00: 00:00 mouth [place] 00 :00 daily. Medical Branch HYDROcodone 2019- No [id number] 1{tbl} Take 1 U nivers -acetaminop 9-18 -26 tablet by it y of hen 5-325 [...] Medic al s, ONCE, 1 Branch dose, Thu05/07/20 at 1715, Routine lactated 2020-0 2020- No 1000mL at 999 Univ ers ringers IV 05-07- mL/hr, ity of infusion 13:15: 14:09 1,000 mL, [place] 1,000 mL 00 :00 Intravenou Medic al s, ONCE, 1 Branch dose, [facility] 05/07/20 at 0815, [...] [place] gram/50 mL 00 :00 dose, Mon [facility] (4 %) 05/07/20 at Branch infusion 2 0800, g Routine ibuprofen 2019- Yes 800mg 800 mg, Univ ers (IBU) 05-07 Oral, ity of tablet 800 12:45: Q6HPRN, [place] mg 22 Starting Medical [facility] 05/07/20 at 0745, Until Discontinu ed, Routine, Pain (scale 4-6) FENTanyl PF 2019- No Slow IV Un piyush (SUBLIMAZE 05-05 Push, PRN, it y of (PF)) 18:53: 20:05 Starting [place] injection 39 :03 Sat Medical 05/05/20 at Branch 1353, Until Discontinu ed, Routine lidocaine 2019-2019- No PRN, Univers 1% (PF) 05-05 Starting ity of (XYLOCAINE) 18:26: 18:26 Sat [place] injection 34 :34 05/05/20 at [facility] 1326, Branch Until Discontinu ed, Routine NaCl 0.9% 2019- No CONTINUOUS U nivers (NS) bolus 05-05 PRN, ity of infusion 18:15: 18:15 [place] 06 :06 [facility] Medical 05/05/20 at Branch 1315, Until [...] First dose Medica l I.V.) RTU on [facility] IV infusion 05/05/20 at 500 mg 0230, [...] Push, ity of mg 06:15: 06:14 Q4HPRN, [place] 31 :31 Starting Medical Sat Branch 05/05/20 at 0115, Until 05/07/20 at 0114, Routine, Pain (scale 7-10) HYDROcodone 2019- 2020- No 1{tbl} 1 tablet, Univers -acetaminop 05-05 Oral, ity of hen (NORCO 06:15: 12:45 Q4HPRN, [place] 5) 5-325 mg 28 :43 Starting Medi mariusz tablet 1 [facility] tablet 05/05/20 at 0115, Until 05/07/20 at 0745, Routine, Pain (scale 4-6) acetaminoph Yes 650mg 650 mg, Un piyush en 05-05 Oral, ity of (TYLENOL) 06:15: Q6HPRN, [place] tablet 650 23 Starting Medic al mg Sat Branch 05/05/20 at 0115, Until Discontinu ed, Routine, Pain (scale 1-3) NaCl 0.9% 2019-0 2020- No 1000mL at 999 Uni vers (NS) bolus 05-0512 mL/hr, ity of infusion 06:15: 07:34 1,000 mL, [place] 1,000 mL 00 :00 IV Medical Infusion, Branch ONCE, 1 dose, 05/05/20 at 0115, STAT NaCl 0.9% 2019-0 2020- No 1000mL [...] ity o f (PF)) 03:15: 03:19 Push, [place] injection 00 :00 ONCE, 1 Medical 50 mcg dose, Fri Branch 05/04/20 at 2215, Routine ondansetron 2019-0 2020- No 4mg 4 mg, Slow Univers (ZOFRAN 05-05 IV Push, ity of (PF)) 03:15: 03:18 ONCE, 1 [place] injection 4 00 :00 dose, Fri Med ical mg 05/04/20 at Branch 2215, JOÃO ketorolac 2019-0 2019- No 60mg 60 mg, Unive rs [...] Indication s: acute pain ibuprofen 2020-0 Yes [id number] 400mg Take 2 Univers 200 mg 9-08 tablets by ity of tablet 00:00: mouth [place] 00 every 6 Medical (six) Branch hours as needed for Pain (scale 1-3). ibuprofen 2020-0 Yes [id number] 400mg Take 2 Univers 200 mg 9-08 tablets by ity of tablet 00:00: mouth [place] 00 every 6 Medical (six) Branch hours as needed for Pain (scale 1-3). ibuprofen 2020-0 Yes [id number] 400mg Take 2 Univers 200 mg 9-08 tablets by ity of tablet 00:00: mouth [place] 00 every 6 Medical (six) Branch hours as needed for Pain (scale 1-3). ibuprofen 2020-0 Yes [id number] 400mg Take 2 Univers 200 mg 9-08 tablets by ity of tablet 00:00: mouth [place] 00 every 6 Medical (six) Branch hours as needed for Pain (scale 1-3). ibuprofen 2020-0 Yes [id number] 400mg Take 2 Univers 200 mg 9-08 tablets by ity of tablet 00:00: mouth [place] 00 every 6 Medical (six) Branch hours as needed for Pain (scale 1-3). ibuprofen 2020-0 Yes [id number] 400mg Take 2 Univers 200 mg 9-08 tablets by ity of tablet 00:00: mouth [place] 00 every 6 Medical (six) Branch hours as needed for Pain (scale 1-3). ibuprofen 2020-0 Yes [id number] 400mg Take 2 Univers 200 mg 9-08 tablets by ity of tablet 00:00: mouth [place] 00 every 6 Medical (six) Branch hours as needed for Pain (scale 1-3). acetaminoph 2020- No [id number] 650mg Take 2 Univers en 05-01 09-09 tablets by ity of (TYLENOL) 00:00: 04:59 mouth [place] 325 mg 00 :00 every 6 Medical tablet (six) Branch hours as needed for Pain (scale 4-6). acetaminoph 2019-2020- No [id number] 650mg Take 2 Univers en - 09-09 tablets by ity of (TYLENOL) 00:00: 04:59 mouth [place] 325 mg 00 :00 every 6 Medical tablet (six) Branch hours as needed for Pain (scale 4-6). acetaminoph 2019-2020- No [id number] 650mg Take 2 Univers en 05-01 09-09 tablets by ity of (TYLENOL) 00:00: 04:59 mouth [place] 325 mg 00 :00 every 6 Medical tablet (six) Branch hours as needed for Pain (scale 4-6). acetaminoph 2020-0 2020- No [id number] 650mg Take 2 Univers en 05-01 09-09 tablets by ity of (TYLENOL) 00:00: 04:59 mouth [place] 325 mg 00 :00 every 6 Medical tablet (six) Branch hours as needed for Pain (scale 4-6). acetaminoph 2019-2020- No [id number] 650mg Take 2 Univers en - 09-09 tablets by ity of (TYLENOL) 00:00: 04:59 mouth [place] 325 mg 00 :00 every 6 Medical tablet (six) Branch hours as needed for Pain (scale 4-6). acetaminoph 2019-2020- No [id number] 650mg Take 2 Univers en 05-01 tablets by ity of (TYLENOL) 00:00: 04:59 mouth [place] 325 mg 00 :00 every 6 Medical tablet (six) Branch hours as needed for Pain (scale 4-6). acetaminoph 2019-2020- No [id number] 650mg Take 2 Univers en 05-01 tablets by ity of (TYLENOL) 00:00: 04:59 mouth [place] 325 mg 00 :00 every 6 Medical tablet (six) Branch hours as needed for Pain (scale 4-6). ciprofloxac 2019- No [id number] 750mg Take 1 Univers in HCl 750 05-01 tablet by ity of mg tablet 00:00: 04:59 mouth [place] 00 :00 every 12 Medical (twelve) Branch hours for 14 days. amoxicillin 2019-2019- No [id number] 1{tbl} Take 1 Univers -clavulanat 05-01 tablet by it y of e 00:00: 04:59 mouth 2 [place] (AUGMENTIN) 00 :00 (two) Medical 875-125 mg times Branch per tablet daily for 14 days. ciprofloxac 2019-2019- No [id number] 750mg Take 1 Univers in HCl 750 05-01 tablet by ity of mg tablet 00:00: 04:59 mouth [place] 00 :00 every 12 Medical (twelve) Branch hours for 14 days. amoxicillin 2019- No [id number] 1{tbl} Take 1 Univers -clavulanat 05-01 tablet by it y of e 00:00: 04:59 mouth 2 [place] (AUGMENTIN) 00 :00 (two) Medical 875-125 mg times Branch per tablet daily for 14 days. ciprofloxac 2019-2019- No [id number] 750mg Take 1 Univers in HCl 750 05-01 tablet by ity of mg tablet 00:00: 04:59 mouth [place] 00 :00 every 12 Medical (twelve) Branch hours for 14 days. amoxicillin 2019-0 2020- No [id number] 1{tbl} Take 1 Univers -clavulanat 05-01 tablet by it y of e 00:00: 04:59 mouth 2 [place] (AUGMENTIN) 00 :00 (two) Medical 875-125 mg times Branch per tablet daily for 14 days. ciprofloxac 2019-2019- No [id number] 750mg Take 1 Univers in HCl 750 05-01 tablet by ity of mg tablet 00:00: 04:59 mouth [place] 00 :00 every 12 Medical (twelve) Branch hours for 14 days. amoxicillin 2019-2019- No [id number] 1{tbl} Take 1 Univers -clavulanat 05-01 tablet by it y of e 00:00: 04:59 mouth 2 [place] (AUGMENTIN) 00 :00 (two) Medical 875-125 mg times Branch per tablet daily for 14 days. ciprofloxac 2019-2019- No [id number] 750mg Take 1 Univers in HCl 750 05-01 tablet by ity of mg tablet 00:00: 04:59 mouth [place] 00 :00 every 12 Medical (twelve) Branch hours for 14 days. amoxicillin 2019-2019- No [id number] 1{tbl} Take 1 Univers -clavulanat 05-01 tablet by it y of e 00:00: 04:59 mouth 2 [place] (AUGMENTIN) 00 :00 (two) Medical 875-125 mg times Branch per tablet daily for 14 days. ciprofloxac 2019- 2020- No [id number] 750mg Take 1 Univers in HCl 750 05-01 tablet by ity of mg tablet 00:00: 04:59 mouth [place] 00 :00 every 12 Medical (twelve) Branch hours for 14 days. amoxicillin 2019- 2020- No [id number] 1{tbl} Take 1 Univers -clavulanat 05-01 tablet by it y of e 00:00: 04:59 mouth 2 [place] (AUGMENTIN) 00 :00 (two) Medical 875-125 mg times Branch per tablet daily for 14 days. ciprofloxac 2019- 2020- No [id number] 750mg Take 1 Univers in HCl 750 05-01 tablet by ity of mg tablet 00:00: 04:59 mouth [place] 00 :00 every 12 Medical (twelve) Branch hours for 14 days. amoxicillin 2019- 2020- No [id number] 1{tbl} Take 1 Univers -clavulanat 05-01 tablet by it y of e 00:00: 04:59 mouth 2 [place] (AUGMENTIN) 00 :00 (two) Medical 875-125 mg times Branch per tablet daily for 14 days. acetaminoph 2019- 2020- No [id number] 650mg Take 2 Univers en 05-01 tablets by ity of (TYLENOL) 00:00: 00:00 mouth [place] 325 mg 00 :00 every 6 Medical tablet (six) Branch hours as needed for Pain (scale 4-6). ibuprofen 2019-0 2020- No [id number] 400mg Take 2 Univers 200 mg 05-01 tablets by ity of tablet 00:00: 00:00 mouth [place] 00 :00 every 6 Medical (six) Branch hours as needed for Pain (scale 1-3). ciprofloxac 2019-0 2020- No [id number] 750mg Take 1 Univers in HCl 750 05-01 tablet by ity of mg tablet 00:00: 00:00 mouth [place] 00 :00 every 12 Medical (twelve) Branch hours for 14 days. amoxicillin 2019-0 2020- No [id number] 1{tbl} Take 1 Univers -clavulanat 05-01 tablet by it y of e 00:00: 00:00 mouth 2 [place] (AUGMENTIN) 00 :00 (two) Medical 875-125 mg [...] 04-25 Oral, ity of e 01:00: Q12H, [place] (AUGMENTIN) 00 First dose Me dical 875-125 mg on Tu Branch per tablet 04/24/20 at 1 tablet [...] ONCE, 1 [place] BULK-100 00 :00 dose, [facility] Medica l mL) 04/23/20 at Branch injection [...] IV Medical Piggyback, Branch ONCE, 1 dose, [facility] 04/23/20 at 1130, STAT micafungin 2019-0 2020- No 100mg 100 mg, IV Univers (MYCAMINE) 04-22 Piggyback, it y of 100 mg in 13:00: 15:59 Q24H ABX, [place] NaCl 0.9% 00 :00 1 dose, Medical (NS) 100 mL First dose Br anch MINI-BAG (after last reorder) on [place] 04/22/20 at 0800, 100 mL
Rest ricted use approved by: [employer]< br>Reason for Anti-Infec tive: Documented Infection< br>Documen dain Infection Site: Abdominal< br>Duratio n of Therapy: 7 days ciprofloxac 2020-0 Yes 750mg 750 mg, Un piyush in HCl 04-21 Oral, ity of (CIPRO) 23:00: Q12HA2, [place] tablet 750 00 First dose Med ical mg on Sat Branch 04/21/20 at 1800, Until Discontinu ed, [...] DAILY, [place] 00 First dose Medical on [facility] Branch 04/21/20 at 0900, Until Discontinu ed, Routine amoxicillin 2020- No 500mg 500 mg, U nivers -pot 04-21 Oral, TID, ity of clavulanate 13:00: 14:44 First dose [place] 500 mg 00 :32 on [facility] Medical (AUGMENTIN 04/21/20 at [facility] 500) 0800, 500-125 mg Until tablet [...] 400 mg Q12H ABX, First dose on 04/20/20 at 1745, Until Discontinu ed, JOÃO
Re ason for Anti-Infec tive: Documented Infection< br>Documen dain Infection Site: Abdominal< br>Duratio n of Therapy: 7 days traMADoL 2020- No 50mg 50 mg, Univer s (ULTRAM) 04-2009 Oral, ity of tablet 50 15:31: 11:12 Q6HPRN, [place] mg 23 :14 Starting Medical Thu Branch 04/20/20 at 1031, Until Thu05/02/20 at [...] Br anch MINI-BAG (after last reorder) on [facility] 04/17/20 at 1445, Last dose on [facility] 04/21/20 at 1445, 100 mL
Rest ricted use approved by: [employer]< br>Reason for Anti-Infec tive: Documented Infection< br>Documen dain Infection Site: Abdominal< br>Duratio n of Therapy: 7 days traMADoL 2019-2019- No 50mg 50 mg, Univer s (ULTRAM) 04-17 Oral, ity of tablet 50 17:11: 15:31 Q6HPRN, [place] mg 09 :33 Starting [facility] 04/17/20 at 1211, Until Thu04/20/20 at 1031, Routine, Pain (scale 4-6), Pain (scale 7-10) aspirin 2019- 2020- No 325mg 325 mg, Unive rs tablet 325 04-17 Oral, ity of mg 14:00: 15:33 DAILY, [place] 00 :03 First dose Medical on [facility] 04/17/20 at 0900, Until Discontinu ed, Routine lidocaine 2019- 2020- No PRN, Univers 1% (PF) 04-16 Starting ity of (XYLOCAINE) 21:17: 21:17 [facility] injection 53 :53 04/16/20 at [facility] 1617, Branch Until [facility] 04/16/20 at 1617, Routine FENTanyl PF 2019-0 2020- No Slow IV Un piyush (SUBLIMAZE 04-16 Push, PRN, it y of (PF)) 21:16: 21:16 Starting [place] injection 07 :07 [facility] 04/16/20 at [place] 1616, Until [facility] 04/16/20 at 1616, Routine midazolam 2019-0 2020- No IV Push, Uni vers (VERSED) 04-16 PRN, ity of injection 21:16: 21:16 Starting [place] 07 :07 [facility] 04/16/20 at Branch 1616, Until 04/16/20 at 1616, Routine piperacilli 2019-2019- No 3.375g 3.375 g, Univers n-tazobacta 04-16 [...] 1431, Until 04/13/20 at 1455, Routine midazolam 2019- No IV [...] ;Restricte d use approved by: ANTIMI[employer]OB IAL [employer] COMMITTEE ampicillin- 2019- No 3g 3 [...] Until Discontinu ed, 100 mL micafungin 2019- No 100mg 100 mg, IV [...] br>Duratio n of therapy: 72 hours ketorolac 2019-2019- No 15mg 15 mg, Unive rs (TORADOL) 04-12 Slow IV ity of injection 17:00: 17:03 Push, ONCE [place] 15 mg 00 :00 NOW, 1 Medical dose, [place] Branch 04/12/20 at 1200, Routine
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 D5W 0.45% 2020- No IV Univers [...] 0815, Until Discontinu ed, Routine enoxaparin 2019- No [...] Thu Medi mariusz (4 %) 04/11/20 at [place] infusion 2 0645, g Routine Total 2019- [...] Medi mariusz (8 %) IV 04/10/20 at [facility] h Piggyback 4 0830, g Routine DAPTOmycin 2020- No 500mg 500 mg, IV Univers [...] dose Medi mariusz (NS) 100 mL on [facility] MINI-BAG 04/09/20 at 2145, Until [...] 00 :18 Mon Medical solution 04/09/20 at [facility] h 0800, Until Discontinu ed, Routine [...] Univers en ADULT 04-08 IV ity of ([facility]) 17:00: 11:15 Infusion, [place] injection 00 :00 Administer Medi mariusz 1,000 mg over 15 Branch Minutes, Q6H, 4 doses, First dose (after last modificati on) on 04/08/20 at 1200, Last dose on 04/09/20 at 0600, Routine
Indicatio n: Perioperat ector Patient acetaminoph 2020- No 1000mg 1,000 mg, Univers en ADULT 04-07 IV ity of ([facility]) 23:00: 14:28 Infusion, [place] injection 00 :31 Administer Medi mariusz 1,000 mg over 15 Branch Minutes, Q6H, 4 doses, First dose (after last reorder) on 04/07/20 at 1800, Last dose on [place] 04/08/20 at 1200, Routine
Indicatio n: Perioperat ector Patient D5W-LR IV 2019-0 2020- No 1000mL at 60 Univ ers infusion 8 08-16 mL/hr, IV ity o f 1,000 mL 22:45: 15:29 Infusion, [place] 00 :52 CONTINUOUS Medical , Starting Branch 04/07/20 at 1745, Until [place] 04/08/20 at 1029, Routine Total 2019- 2020- No at 85 Univers Parenteral 8- 08-16 mL/hr, ity of Nutrition 22:00: 22:05 2,040 mL, [place] Adult 00 :00 TPNCONTINU Medical OUS, 1 Branch dose, First dose on 04/07/20 at 1700 fluconazole 2019- 2020- No 400mg at 100 Un piyush (DIFLUCAN) 8 08-18 mL/hr, IV ity of IV 20:00: 01:35 Piggyback, [place] Piggyback 00 :07 Q24H ABX, Medic al [...] Bottle), ity of e 0.5% 01:00: Topical, [place] (DAKINS) 00 BID, First Medic al solution [...] 3mL 3 mL, IV Un piyush protein-A 04-0614 Push, ity of microsphr 22:30: 21:00 ONCE, 1 [place] (OPTISON) 00 :00 dose, Fri Medic al injection 3 04/06/20 at Br anch mL 1730, Routine fluconazole 2019- No 800mg at 100 Un piyush (DIFLUCAN) 04-06 08-14 mL/hr, IV ity of IV 21:15: 22:10 Piggyback, [place] piggyback 00 :00 ONCE, 1 Medical 800 mg dose, Fri Branch 04/06/20 at 1615, JOÃO hydrocortis 2019- 2020- No 100mg 100 mg, IV [...] mL/hr), IV Me dical NaCl 0.9% Infusion, [facility] h (NS) 100 mL CONTINUOUS infusion , Starting Thu04/06/20 at 1600 magnesium 2019- 2020- No 4g 4 g, IV Univ ers sulfate in 04-06 Piggyback, it y of water 4 21:00: 00:03 ONCE, 1 [place] gram/50 mL 00 :00 dose, Fri Medi mariusz (8 %) IV 04/06/20 at [facility] h Piggyback 4 1600, g Routine lactated [...] ed, JOÃO
Re stricted use approved by: CHELSIE 8TH FLOOR
R mitali for Anti-Infec tive: [...] Branch dose, Thu04/06/20 at 1430, Routine NORepinephr No .05ug/k 0.05-1.5 Univers ine 4 mg [...] 2020- No .2ug/kg 0.2-1.5 Univers dine 200 04-06 /h mcg/kg/hr ity o f mcg in [...] CONTINUOUS , Starting Thu04/06/20 at 1115, Until 04/06/20 at 1330, Routine [...] 00 :35 Fri Medical injection 04/06/20 at [facility] 1110, Until Thu04/06/20 at 1129, [...] 00 :35 Fri Medical infusion 04/06/20 at [facility] h 1029, Until Thu04/06/20 at 1129, Routine, Intra-op EPINEPHrine 2020-0 2020- No CONTINUOUS Univers 1 mg in 04-06 PRN, ity of NaCl 0.9% 15:29: 16:29 Starting [place] (NS) 00 :35 Fri Medical infusion 04/06/20 at [facility] 1029, Until Thu04/06/20 at 1129, Routine, Intra-op piperacilli 2020-0 2020- No CONTINUOUS Univers n-tazobacta 04-06 PRN, ity of m (ZOSYN) 14:57: 16:29 Starting [place] 3.375 g in 00 :35 Fri Medical NaCl 0.9% 04/06/20 at [facility] (NS) 100 mL 0957, infusion Until Discontinu ed, 100 mL, Intra-op piperacilli 2020-0 2020- No CONTINUOUS Univers n-tazobacta 04-06 PRN, ity of m (ZOSYN) 14:57: 16:29 Starting [place] 3.375 g in 00 :35 Fri Medical NaCl 0.9% 04/06/20 at [facility] (NS) 100 mL 0957, infusion Until Discontinu ed, 100 mL, Intra-op EPINEPHrine 2020-0 2020- No ONCE INTRA Univers 1:1,000 (1 04-06 PROCEDURE, it y of mg/mL) 14:54: 16:29 Starting [place] (ADRENALIN) 00 :35 Fri Medical injection 04/06/20 at [facility] 0954, Until Discontinu ed, Routine, Intra-op EPINEPHrine 2020-0 2020- No ONCE INTRA Univers 1:1,000 (1 04-06 PROCEDURE, it y of mg/mL) 14:54: 16:29 Starting [place] (ADRENALIN) 00 :35 Fri Medical injection 04/06/20 at [facility] 0954, Until Discontinu ed, Routine, Intra-op NORepinephr 2020-0 2020- No CONTINUOUS Univers ine 04-06 PRN, ity of (LEVOPHED) 14:39: 16:29 [place] 4 mg in 00 :35 Fri Medical NaCl 0.9% 04/06/20 at [facility] (NS) 250 mL 0939, infusion Intra-op NORepinephr 2020-0 2020- No CONTINUOUS Univers ine 04-06 PRN, ity of (LEVOPHED) 14:39: 16:29 [place] 4 mg in 00 :35 Fri Medical NaCl 0.9% 04/06/20 at [facility] (NS) 250 mL 0939, infusion [...] 16:29 INTRA [place] injection 00 :35 PROCEDURE, [facility] Starting Branch 04/06/20 at 0922, Until Thu04/06/20 at 1129, Routine, Intra-op phenylephri 2020-0 2020- No Intravenou Univers ne 04-06 s, ONCE ity of (VAZCULEP) 14:22: 16:29 INTRA [place] injection 00 :35 PROCEDURE, [facility] Starting Branch 04/06/20 at 0922, Until [...] Fri Medical mL (1 %) 04/06/20 at [facility] h injection 0915, Until Thu04/06/20 at [...] [place] injection 00 :35 Starting Medica l [facility] Branch 04/06/20 at 0915, Until Thu04/06/20 at 1129, Routine, Intra-op propofol IV 2020-0 2020- No ONCE INTRA Univers infusion 04-06 PROCEDURE, ity of 14:15: 16:29 Starting [place] 00 :35 [facility] Medical 04/06/20 at Branch 0915, Until Thu04/06/20 at 1129, Routine, Intra-op lidocaine 2020-0 2020- No ONCE INTRA U nivers 1% 04-06 PROCEDURE, ity of (XYLOCAINE) 14:15: 16:29 Starting [place] 100 mg/10 00 :35 Fri Medical mL (1 %) 04/06/20 at [facility] h injection 0915, Until Thu04/06/20 at 1129, Routine, Intra-op FENTanyl PF 2020-0 2020- No ONCE INTRA Univers (SUBLIMAZE 04-06 PROCEDURE, it y of (PF)) 14:15: 16:29 Starting [place] injection 00 :35 Fri Medical 8/14/20 at Branch 0915, Until Thu04/06/20 at 1129, Routine, Intra-op albumin 2020-0 2020- No CONTINUOUS Uni vers (ALBUMINAR- 04-06 PRN, ity of 5) 5 % 14:10: 16:29 Starting [place] injection 00 :35 [facility] 04/06/20 at Branch 0910, Until Discontinu ed, Intra-op lactated 2020-0 2020- No CONTINUOUS Un piyush ringers IV 04-06 PRN, ity of infusion 14:10: 16:29 [place] 00 :35 [facility] 04/06/20 at Branch 0910, Until Discontinu ed, Routine, Intra-op albumin 2020-0 2020- No CONTINUOUS Uni vers (ALBUMINAR- 04-06 PRN, ity of 5) 5 % 14:10: 16:29 Starting [place] injection 00 :35 [facility] 04/06/20 at Branch 0910, Until Discontinu ed, Intra-op lactated 2020-0 2020- No CONTINUOUS Un piyush ringers IV 04-06 PRN, ity of infusion 14:: 16:29 [place] 00 :35 [facility] 04/06/20 at Branch 0910, Until [...] Last dose on Thu04/04/20 at 1200, Routine
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
Restricte d use approved by: HELENE MEDELLIN - SURGERY/GE NERAL heparin 2019-0 2020- No 5000U 5,000 Univers (porcine) 04-03 Units, ity of injection 12:00: 12:02 Subcutaneo [place] 5,000 Units 00 :00 us, ONCE, Med ical 1 dose, Branch Thu04/03/20 at 0700, Routine gabapentin 2019-2019- No 300mg [...] mL/hr, Medical mEq CONTINUOUS Branch , Starting Thu04/02/20 at 1830, Until Thu04/04/20 at 1259, Routine NaCl 0.9% 0 2019- No 1000mL at 999 Uni vers [...] mEq CONTINUOUS Branch , Starting Thu04/01/20 at 191, Until Thu04/02/20 at 181, Routine acetaminoph 2019-0 2019- No 650mg 650 mg, U nivers en 04-01 Oral, ity of (TYLENOL) 23:11: 21:31 Q6HPRN, [place] tablet 650 57 :27 Starting Medic al mg [place] 04/01/20 Branch at 1811, Until Thu04/03/20 at 1631, Routine, Pain (scale 1-3), Pain (scale 4-6) NaCl 0.9% 2019- 2020- No 1000mL at 999 Uni vers (NS) bolus 04-01 08-10 mL/hr, ity of infusion 23:10: 00:18 1,000 mL, [place] 1,000 mL 00 :00 IV Medical Piggyback, [place] ONCE, 1 dose, [place] 04/01/20 at 1815, STAT lactulose 2019-2019- No 15mL 15 mL, Unive rs (CEPHULAC) 04-01 Oral, ity of solution 15 16:15: 16:01 ONCE, 1 [place] mL 00 :00 dose, [facility] 04/01/20 at Branch 1115, Routine Polyethylen 2019- 2020- No 17g 17 g, Univ ers e Glycol 03-31 Oral, BID ity o f 3350 15:45: 23:13 MEALS, [place] (MIRALAX) 00 :14 First dose Medi mariusz powder 17 g on [facility] 03/31/20 at 1045, Until Discontinu ed, Routine enoxaparin 2020- No 40mg 40 mg, Univ ers (LOVENOX) 03-31 Subcutaneo ity of injection 14:00: 10:50 us, DAILY, [place] 40 mg 00 :07 First dose Medical on [facility] 03/31/20 at 0900, Until Discontinu ed, Routine D5W-LR IV 2019-0 2020- No 1000mL at 125 Uni vers infusion 03-31 mL/hr, IV ity o f 1,000 mL 03:00: 23:13 Infusion, [place] 00 :14 CONTINUOUS Medical , Starting Branch Thu03/30/20 at 2200, Until [place] 04/01/20 at 1813, Routine ondansetron 2019- 2020- No 4mg 4 mg, Slow Univers (ZOFRAN 03-31 IV Push, ity of (PF)) 01:51: 21:31 Q6HPRN, [place] injection 4 28 :27 Starting Medi mariusz mg Thu03/30/20 Branch at 2051, Until Thu04/03/20 at 1631, Routine, [...] dose, 03/30/20 at 1715, JOÃO metoclopram 2019-0 2019- No 5mg 5 mg, Slow Univers tammi HCl 03-28 08-06 IV Push, ity of (REGLAN) 01:00: 00:59 Q12H, 2 [place] injection 5 00 :00 doses, Medica l mg First dose Branch on Thu03/27/20 at 2000, Last dose on Thu03/28/20 at 0800, Routine metoclopram 2020-0 Yes [id number] 5mg Take 1 Univers tammi HCl 8-05 tablet by ity of (REGLAN) 5 00:00: mouth [place] mg tablet 00 every 12 Medica l (twelve) Branch hours as needed for Nausea and Vomiting (N/V) (constipat ion). metoclopram 2020-0 Yes [id number] 5mg Take 1 Univers tammi HCl 8-05 tablet by ity of (REGLAN) 5 00:00: mouth [place] mg tablet 00 every 12 Medica l (twelve) Branch hours as needed for Nausea and Vomiting (N/V) (constipat ion). metoclopram 2020-0 Yes [id number] 5mg Take 1 Univers tammi HCl 8-05 tablet by ity of (REGLAN) 5 00:00: mouth [place] mg tablet 00 every 12 Medica l (twelve) Branch hours as needed for Nausea and Vomiting (N/V) (constipat ion). metoclopram 2020-0 Yes [id number] 5mg Take 1 Univers tammi HCl 8-05 tablet by ity of (REGLAN) 5 00:00: mouth [place] mg tablet 00 every 12 Medica l (twelve) Branch hours as needed for Nausea and Vomiting (N/V) (constipat ion). metoclopram 2020-0 2020- No [id number] 5mg Take 1 Univers tammi HCl 8-05 [...] , Starting Branch Tu03/27/20 at 0000, Until Thu03/27/20 at 1341, Routine [...] Medica l mg First dose Branch on [place] 03/25/20 at 2330, Last dose on Thu03/26/20 at 1530, Routine heparin 2020-0 Yes 5000U 5,000 Univers (porcine) 803 Units, ity of injection 03:00: Subcutaneo [place] 5,000 Units 00 us, Q8H, Medi mariusz First dose Branch on [place] 03/25/20 at 2200, Until Discontinu ed, Routine ondansetron 2020-0 Yes 4mg 4 mg, Slow Univers (ZOFRAN 03-26 IV Push, ity of (PF)) 02:46: Q6HPRN, [place] injection 4 11 Starting Medi mariusz mg [place] 03/25/20 Branch at 2146, Until Discontinu ed, Routine, Nausea and Vomiting (N/V) acetaminoph 2020-0 Yes 650mg 650 mg, Un piyush en 03 Oral, ity of (TYLENOL) 02:46: Q6HPRN, [place] tablet 650 05 Starting Medic al mg [place] 03/25/20 Branch at 2146, Until Discontinu ed, Routine, Pain (scale 1-3) iohexol 2020-0 2020- No 100mL 100 mL, Unive rs (OMNIPAQUE 03-2603 Intravenou it y of 350 01:30: 01:30 s, ONCE, 1 [place] BULK-100 00 :00 dose, [place] Medica l mL) 03/25/20 at Branch injection 2030, 100 mL Routine NaCl 0.9% 2020-0 2020- No 1000mL at 999 Uni vers (NS) bolus 03-26 08-03 mL/hr, ity of infusion 00:45: 00:42 1,000 mL, [place] as 1,000 mL 00 :00 IV Medical Infusion, Branch ONCE, 1 dose, [place] 03/25/20 at 1945, JOÃO enoxaparin 2020-0 Yes [...] IV Push, ity of (PF)) 04:05: Q6HPRN, [place] injection 4 40 Starting Medi mariusz mg Thu03/02/20 at 2305, Until Discontinu ed, Routine, Nausea and Vomiting (N/V) acetaminoph 2020-0 Yes 650mg 650 mg, Un piyush en 7-11 Oral, ity of (TYLENOL) 04:05: Q6HPRN, [place] tablet 650 30 Starting Medic al mg Thu03/02/20 at 2305, Until Discontinu ed, Routine, Pain (scale 1-3) Polyethylen 2020-0 Yes [id number] 17g Take 1 Univers e Glycol 7-07 Packet by ity of 3350 17 00:00: mouth [place] gram powder 00 daily. Medica l Branch Polyethylen 2020-0 Yes [id number] 17g Take 1 Univers e Glycol 7-07 Packet by ity of 3350 17 00:00: mouth [place] gram powder 00 daily. Medica l Branch Polyethylen 2020-0 Yes [id number] 17g Take 1 Univers e Glycol 7-07 Packet by ity of 3350 17 00:00: mouth [place] gram powder 00 daily. Medica l Branch Polyethylen 2020-0 Yes [id number] 17g Take 1 Univers e Glycol 7-07 Packet by ity of 3350 17 00:00: mouth [place] gram powder 00 daily. Medica l Branch Polyethylen 2020-0 2020- No [id number] 17g Take 1 Univers e Glycol 7-07 08-05 Packet by ity o f 3350 17 00:00: 00:00 mouth [place] gram powder 00 :00 daily. Medica l Branch Polyethylen 2020-0 Yes 17g 17 g, Unive rs e Glycol 7-06 Oral, ity of 3350 18:15: DAILY, [place] (MIRALAX) 00 First dose Medi mariusz powder 17 g on 02/27/20 at 1315, Until Discontinu ed, Routine enoxaparin 2020-0 Yes 40mg 40 mg, Unive rs (LOVENOX) 06 Subcutaneo ity of injection 14:00: us, DAILY, [place] 40 mg 00 First dose Medical on Mon Branch 02/27/20 at 0900, Until Discontinu ed, Routine polyethylen 2020-0 Yes [id number] 17g Take 17 g Univers e glycol 17 7-06 by mouth ity of gram/dose 00:00: daily. [place] powder [facility] polyethylen 2020-0 Yes [id number] 17g Take 17 g Univers e glycol 17 7-06 by mouth ity of gram/dose 00:00: daily. [place] powder [facility] polyethylen 2020-0 Yes [id number] 17g Take 17 g Univers e glycol 17 7-06 by mouth ity of gram/dose 00:00: daily. [place] powder [facility] polyethylen 2020-0 Yes [id number] 17g Take 17 g Univers e glycol 17 7-06 by mouth ity of gram/dose 00:00: daily. [place] powder [facility] polyethylen 2020-0 Yes [id number] 17g Take 17 g Univers e glycol 17 7-06 by mouth ity of gram/dose 00:00: daily. [place] powder [facility] polyethylen 2020-0 Yes [id number] 17g Take 17 g Univers e glycol 17 7-06 by mouth ity of gram/dose 00:00: daily. [place] powder [facility] polyethylen 2020-0 Yes [id number] 17g Take 17 g Univers e glycol 17 7-06 by mouth ity of gram/dose 00:00: daily. [place] powder [facility] polyethylen 2020-0 Yes [id number] 17g Take 17 g Univers e glycol 17 7-06 by mouth ity of gram/dose 00:00: daily. [place] powder 00 [facility] polyethylen 2020-0 2020- No [id number] 17g Take 17 g Univers e glycol 17 7-06 09-08 by mouth ity of gram/dose 00:00: 00:00 daily. [place] powder 00 :00 [facility] iohexol 2020-0 2020- No 120mL 120 mL, Unive rs (OMNIPAQUE 02-25 07-05 Intravenou it y of 350 18:30: 18:30 s, ONCE, 1 [place] BULK-100 00 :00 dose, [place] [facility] mL) 02/26/20 at Branch injection 1330, 120 mL Routine lactated 2020-0 2020- No 1000mL at 125 Univ ers ringers IV 7 07-06 mL/hr, ity of infusion 16:00: 17:57 [...] Pain (scale 4-6) pantoprazol 2020-0 2020- No [id number] 40mg Take 1 Univers e 40 mg EC 6-15 14 tablet by ity of tablet 00:00: 04:59 mouth [place] 00 :00 daily for Medical 90 days. Branch pantoprazol 2020-0 2020- No [id number] 40mg Take 1 Univers e 40 mg EC 6-15 14 tablet by ity of tablet 00:00: 04:59 mouth [place] 00 :00 daily for Medical 90 days. Branch pantoprazol 2020-0 2020- No [id number] 40mg Take 1 Univers e 40 mg EC 6-15 14 tablet by ity of tablet 00:00: 04:59 mouth [place] 00 :00 daily for Medical 90 days. Branch pantoprazol 2020-0 2020- No [id number] 40mg Take 1 Univers e 40 mg EC 6-15 05-07 tablet by ity of tablet 00:00: 04:59 mouth [place] 00 :00 daily for Medical 90 days. Branch pantoprazol 2020-0 2020- No [id number] 40mg Take 1 Univers e 40 mg EC 6-15 14 tablet by ity of tablet 00:00: 04:59 mouth [place] 00 :00 daily for Medical 90 days. Branch pantoprazol 2020-0 2020- No [id number] 40mg Take 1 Univers e 40 mg EC 6-15 14 tablet by ity of tablet 00:00: 04:59 mouth [place] 00 :00 daily for Medical 90 days. Branch pantoprazol 2020-0 2020- No [id number] 40mg Take 1 Univers e 40 mg EC 6-15 09-14 tablet by ity of tablet 00:00: 04:59 mouth [place] 00 :00 daily for Medical 90 days. Branch pantoprazol 2020-0 2020- No [id number] 40mg Take 1 Univers e 40 mg EC 6-15 09-14 tablet by ity of tablet 00:00: 04:59 mouth [place] 00 :00 daily for Medical 90 days. Branch pantoprazol 2020-0 2020- No [id number] 40mg Take 1 Univers e 40 mg EC 6-15 09-14 tablet by ity of tablet 00:00: 04:59 mouth [place] 00 :00 daily for Medical 90 days. Branch pantoprazol 2020-0 2020- No [id number] 40mg Take 1 Univers e 40 mg EC 6-15 09-14 tablet by ity of tablet 00:00: 04:59 mouth [place] 00 :00 daily for Medical 90 days. Branch pantoprazol 2019-0 2020- No [id number] 40mg Take 1 Univers e 40 mg EC 6-15 09-14 tablet by ity of tablet 00:00: 04:59 mouth [place] 00 :00 daily for Medical 90 days. Branch pantoprazol 2019-0 2020- No [id number] 40mg Take 1 Univers e 40 mg EC 6-15 09-14 tablet by ity of tablet 00:00: 04:59 mouth [place] 00 :00 daily for Medical 90 days. Branch pantoprazol 2019-0 2020- No [id number] 40mg Take 1 Univers e 40 mg EC 6-15 09-08 tablet by ity of tablet 00:00: 00:00 mouth [place] 00 :00 daily for Medical 90 days. Branch docusate 2020-0 2020- No [id number] 100mg Take 1 Univers 100 mg 6-14 09-13 capsule by ity of capsule 00:00: 04:59 mouth 2 [place] 00 :00 (two) Medical times Branch daily for 90 days. docusate 2020-0 2020- No [id number] 100mg Take 1 Univers 100 mg 6-14 09-13 capsule by ity of capsule 00:00: 04:59 mouth 2 [place] 00 :00 (two) Medical times Branch daily for 90 days. docusate 2020-0 2020- No [id number] 100mg Take 1 Univers 100 mg 6-14 09-13 capsule by ity of capsule 00:00: 04:59 mouth 2 [place] 00 :00 (two) Medical times Branch daily for 90 days. docusate 2020-0 2020- No [id number] 100mg Take 1 Univers 100 mg 6-14 09-13 capsule by ity of capsule 00:00: 04:59 mouth 2 [place] 00 :00 (two) Medical times Branch daily for 90 days. docusate 2020-0 2020- No [id number] 100mg Take 1 Univers 100 mg 6-14 09-13 capsule by ity of capsule 00:00: 04:59 mouth 2 [place] 00 :00 (two) Medical times Branch daily for 90 days. docusate 2020-0 2020- No [id number] 100mg Take 1 Univers 100 mg 6-14 09-13 capsule by ity of capsule 00:00: 04:59 mouth 2 [place] 00 :00 (two) Medical times Branch daily for 90 days. docusate 2020-0 2020- No [id number] 100mg Take 1 Univers 100 mg 6-14 09-13 capsule by ity of capsule 00:00: 04:59 mouth 2 [place] 00 :00 (two) Medical times Branch daily for 90 days. docusate 2020-0 2020- No [id number] 100mg Take 1 Univers 100 mg 6-14 09-13 capsule by ity of capsule 00:00: 04:59 mouth 2 [place] 00 :00 (two) Medical times Branch daily for 90 days. docusate 2020-0 2020- No [id number] 100mg Take 1 Univers 100 mg 6-14 09-13 capsule by ity of capsule 00:00: 04:59 mouth 2 [place] 00 :00 (two) Medical times Branch daily for 90 days. docusate 2020-0 2020- No [id number] 100mg Take 1 Univers 100 mg 6-14 09-13 capsule by ity of capsule 00:00: 04:59 mouth 2 [place] 00 :00 (two) Medical times Branch daily for 90 days. docusate 2020-0 2020- No [id number] 100mg Take 1 Univers 100 mg 6-14 09-13 capsule by ity of capsule 00:00: 04:59 mouth 2 [place] 00 :00 (two) Medical times Branch daily for 90 days. docusate 2020-0 2020- No [id number] 100mg Take 1 Univers 100 mg 6-14 09-13 capsule by ity of capsule 00:00: 04:59 mouth 2 [place] 00 :00 (two) Medical times Branch daily for 90 days. docusate 2020-0 2020- No [id number] 100mg Take 1 Univers 100 mg 02-04 capsule by ity of capsule 00:00: 00:00 mouth 2 [place] 00 :00 (two) Medical [facility] daily for 90 days. pantoprazol 2020-0 Yes 40mg 40 mg, Univ ers e 01-28 Oral, ity of (PROTONIX) 14:00: DAILY, [place] EC tablet 00 First dose Medi mariusz 40 mg on [facility] 01/29/20 at 0900, Until Discontinu ed, Routine enoxaparin 2020-0 Yes 40mg 40 mg, Unive rs (LOVENOX) 01-28 Subcutaneo ity of injection 14:00: us, DAILY, [place] 40 mg 00 First dose Medical on [facility] 01/29/20 at 0900, Until Discontinu ed, Routine docusate 2020-0 Yes 100mg 100 mg, Unive rs (COLACE) 01-28 Oral, ity of capsule 100 14:00: DAILY, [place] mg 00 First dose Medical on [facility] 01/29/20 at 0900, Until Discontinu ed, Routine levothyroxi 2020-0 Yes 50ug 50 mcg, Uni vers ne 01-28 Oral, ity of (SYNTHROID) 11:00: QAM-0600, [place] tablet 50 00 First dose Medi mariusz mcg on [facility] 01/29/20 at 0600, Until Discontinu ed, Routine simethicone 2020-0 Yes 80mg 80 mg, Univ ers (GAS RELIEF 01-28 Oral, ity of (SIMETHICON 04:45: PC+HS, [place] E)) 00 First dose Medical chewable on [facility] Branch tablet 80 01/28/20 at mg 2345, Until Discontinu ed, Routine D5W IV 2020-0 2020- No 1000mL at 50 Univers infusion 01-28-14 mL/hr, IV ity o f 1,000 mL 03:45: 18:41 Infusion, Javi as 00 :31 CONTINUOUS Medical , Starting Branch [facility] 01/28/20 at 2245, Until [place] 02/05/20 at 1341, Routine bisacodyL 2020-0 2020- No 10mg 10 mg, Unive rs (DULCOLAX) 01-28-07 Rectal, ity o f suppository 03:00: 02:52 ONCE, 1 [place] 10 mg 00 :00 dose, Sat Medical 01/28/20 at Branch 2200, Routine ondansetron 2020-0 Yes 4mg 4 mg, Slow Univers (ZOFRAN 01-28 IV Push, ity of (PF)) 01:32: Q6HPRN, [place] injection 4 44 Starting Medi mariusz mg [...] 01-28 Oral, ity of (TYLENOL) 01:32: Q6HPRN, [place] tablet 650 14 Starting Medic al mg [facility] 01/28/20 Branch at 2031, Until Discontinu ed, Routine, Pain (scale 1-3) morpHINE 2019-0 2020- No 4mg 4 mg, Slow Un piyush injection 4 01-28- IV Push, ity of mg 00:45: 23:55 ONCE, 1 [place] 00 :00 dose, Sat [facility] 01/28/20 at Branch 1945, STAT iohexol 2019-0 [...] 1 dose, 01/28/20 at 1815, STAT heparin 2019-0 Yes 5000U 5,000 Univers (porcine) 6-03 Units, [...] :00 dose, Tue Medical 01/24/20 at Branch 2045, Routine ondansetron 2020-0 2020- No 4mg 4 mg, Slow Univers (ZOFRAN 01-24 06- IV Push, ity of (PF)) 00:45: 00:58 Administer [place] injection 4 00 :00 over 15 Medic al mg Minutes, Branch ONCE, 1 dose, Tu 01/24/20 at 1945, STAT NaCl 0.9% 2020-0 2020- No 1000mL at 999 Uni vers (NS) bolus 01-24 06-03 mL/hr, ity of infusion 00:45: 01:15 1,000 mL, Javi as 1,000 mL 00 :00 IV Medical Infusion, Branch ONCE, 1 dose, Lo 01/24/20 at 1945, JOÃO mineral oil 2020-0 2020- No [id number] 30mL Take 30 mL Univers oral liquid 12-11 05-05 by mouth ity of 00:00: 04:59 daily for [place] 00 :00 14 days. Medical Branch tamsulosin [...] n (DAILY 04-14 abuse, in tablet by [employer]) 00:00: 00:00 remission mouth tablet 00 :00 daily. 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 multivitami 2021- No Alcohol 1{tbl} QD Take 1 [place] n (DAILY 04-14- abuse, in tablet by [employer]) 00:00: 00:00 remission mouth tablet 00 :00 daily. 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 multivitami 2021- No Alcohol 1{tbl} QD Take 1 [place] n (DAILY 04-14 abuse, in tablet by [employer]) 00:00: 00:00 remission mouth tablet 00 :00 daily. thiamine, 2021- No Alcohol 100mg QD Take 1 H arris B-1, 100 mg 04-14- abuse, in tablet by Health tablet 00:00: 00:00 remission mouth 00 :00 daily. multivitami 2021- No Alcohol 1{tbl} QD Take 1 [place] n (DAILY 04-14- abuse, in tablet by [employer]) 00:00: 00:00 remission mouth tablet 00 :00 [...] n (DAILY 04-14- abuse, in tablet by [employer] [facility]) 00:00: 00:00 remission mouth tablet 00 :00 daily. thiamine, 2021- No Alcohol 100mg QD Take 1 H arris B-1, 100 mg 04-14- abuse, in tablet by Health tablet 00:00: 00:00 remission mouth 00 :00 daily. multivitami 2021- No Alcohol 1{tbl} QD Take 1 [place] n (DAILY 04-14-21 abuse, in tablet by [employer] VITES) 00:00: 00:00 remission mouth tablet 00 :00 daily. thiamine, 2021- No Alcohol 100mg QD Take 1 H arris B-1, 100 mg 04-14-21 abuse, in tablet by Health tablet 00:00: 00:00 remission mouth 00 :00 daily. multivitami 2021- No Alcohol 1{tbl} QD Take 1 [place] n (DAILY 04-14 05-21 abuse, in tablet by [employer] VITConsult A Doctor) 00:00: 00:00 remission mouth tablet 00 :00 daily. thiamine, 2021- No Alcohol 100mg QD Take 1 H arris B-1, 100 mg 04-14 05-21 abuse, in tablet by Health tablet 00:00: 00:00 remission mouth 00 :00 daily. multivitami 2021- No Alcohol 1{tbl} QD Take 1 [place] n (DAILY 8 05-21 abuse, in tablet by [employer]) 00:00: 00:00 remission mouth tablet 00 :00 daily. thiamine, 2021- No Alcohol 100mg QD Take 1 H arris B-1, 100 mg 8- 05-21 abuse, in tablet by Health tablet 00:00: 00:00 remission mouth 00 :00 daily. multivitami 2021- No Alcohol 1{tbl} QD Take 1 [place] n (DAILY 8 05-21 abuse, in tablet by [employer] VITConsult A Doctor) 00:00: 00:00 remission mouth tablet 00 :00 daily. 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 multivitami 2021- No Alcohol 1{tbl} QD Take 1 [place] n (DAILY 8 05-21 abuse, in tablet by [employer]) 00:00: 00:00 remission mouth tablet 00 :00 daily. 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 multivitami 2021- No Alcohol 1{tbl} QD Take 1 [place] n (DAILY 8 05-21 abuse, in tablet by [employer]) 00:00: 00:00 remission mouth tablet 00 :00 daily. thiamine, 2021- No Alcohol 100mg QD Take 1 H arris B-1, 100 mg 04-14 05-21 abuse, in tablet by Health tablet 00:00: 00:00 remission mouth 00 :00 daily. multivitami 2021- No Alcohol 1{tbl} QD Take 1 [place] n (DAILY 8 05-21 abuse, in tablet by [employer] VIT[facility]ult A Doctor) 00:00: 00:00 remission mouth tablet 00 :00 [...] (DAILY 8- 05-21 abuse, in tablet by [employer] VITConsult A Doctor) 00:00: 00:00 remission mouth tablet 00 :00 [...] n (DAILY 04-14- abuse, in tablet by [employer]) 00:00: 00:00 remission mouth tablet 00 :00 daily. 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 multivitami 2021- No Alcohol 1{tbl} QD Take 1 [place] (DAILY 04-14 abuse, in tablet by [employer]) 00:00: 00:00 remission mouth tablet 00 :00 daily. thiamine, 2021- No Alcohol 100mg QD Take 1 H arris B-1, 100 mg 04-14 abuse, in tablet by [employer] tablet 00:00: 00:00 remission mouth 00 :00 daily. multivitami 2021- No Alcohol 1{tbl} QD Take 1 [place] (DAILY 04-14 abuse, in tablet by [employer]) 00:00: 00:00 remission mouth tablet 00 :00 daily. thiamine, 2021- No Alcohol 100mg QD Take 1 H arris B-1, 100 mg 04-14 abuse, in tablet by [employer] tablet 00:00: 00:00 remission mouth 00 :00 daily. multivitami 2021- No Alcohol 1{tbl} QD Take 1 [place] (DAILY 04-14 abuse, in tablet by [employer]) 00:00: 00:00 remission mouth tablet 00 :00 daily. thiamine, 2021- No Alcohol 100mg QD Take 1 H arris B-1, 100 mg 04-14 abuse, in tablet by [employer] tablet 00:00: 00:00 remission mouth 00 :00 daily. multivitami 2021- No Alcohol 1{tbl} QD Take 1 [place] n (DAILY 04-14 abuse, in tablet by [employer]) 00:00: 00:00 remission mouth tablet 00 :00 [...] Immunizations Ordered Filled Immunization Date Status Comments [facility] e Immunization Name Name Influenza Virus 2021-06-04 Completed Universit y of Vaccine Quad IM, 00:00:00 [place] Me dical Preserv and ABX Branch Free 2-64 YRS Influenza Virus 2021-06-04 Completed Universit y of Vaccine Quad IM, 00:00:00 [place] Me dical Preserv and ABX Branch Free 6 MO-64 YRS Influenza Virus 2021-06-04 Completed Universit y of Vaccine Quad IM, 00:00:00 [place] Me dical Preserv and ABX [facility] Free 6 MO-64 YRS Influenza Virus 2021-06-04 Completed [facility], [facility] [place] [facility] Preserv and ABX [facility] Free [...] [facility], 00:[facility]:00 [place] [facility] Preserv [facility] ABX [facility] Free 6 MO-64 YRS Influenza Virus 2021-06-04 Completed [facility], 00:[facility]:00 [place] [facility] Preserv [facility] ABX [facility] Free [...] [facility], 00:[facility]:00 [place] [facility] Preserv [facility] ABX [facility] Free [...] y [facility] .5 mL 00:00:00 [facility] 6+ MO Branch Influenza Virus [...] y [facility] .5 mL 00:00:00 [facility] 6+ MO [facility] Influenza Virus 2020-08-24 Completed [facility] .5 mL 00:00:00 [facility] 6+ MO [facility] Influenza Virus 2020-08-24 Completed [facility] .5 mL 00:00:00 [facility] 6+ MO [facility] Influenza Virus 2020-08-24 Completed [facility] .5 mL 00:00:00 [facility] 6+ MO [facility] Influenza Virus 2020-08-24 Completed [facility] .5 mL 00:00:00 [facility] 6+ MO [facility] PPD 2017-04-14 [...] y [facility] 3+ 00:00:00 [facility] Influenza Virus 2016-05-16 Completed [facility] 3+ 00:00:00 [facility] Influenza Virus 2016-05-16 Completed [facility] 3+ 00:00:00 [facility] Influenza Virus 2016-05-16 Completed [facility] 3+ 00:00:00 [facility] Influenza Virus 2016-05-16 Completed [facility] 3+ 00:00:00 [facility] Influenza Virus 2016-05-16 Completed [facility] 3+ 00:00:00 [facility] Influenza Virus 2016-05-16 Completed [facility] 3+ 00:00:00 [facility] Influenza Virus 2016-05-16 Completed [facility] 3+ 00:00:00 [facility] Influenza Virus 2016-05-16 Completed [facility] 3+ 00:00:00 [facility] Influenza Virus 2016-05-16 Completed [facility] 3+ 00:00:00 [facility] Influenza Virus 2016-05-16 Completed [facility] 3+ 00:00:00 [facility] Influenza Virus 2016-05-16 Completed [facility] 3+ 00:00:00 [facility] Influenza Virus 2016-05-16 Completed [facility] 3+ 00:00:00 [facility] Influenza Virus 2016-05-16 Completed [facility] 3+ 00:00:00 [facility] Influenza Virus 2016-05-16 Completed [facility] 3+ 00:00:00 [facility] Influenza Virus 2016-05-16 Completed [facility] 3+ 00:00:00 [facility] Influenza Virus 2016-05-16 Completed [facility] 3+ 00:00:00 [facility] Influenza Virus 2016-05-16 Completed [facility] 3+ 00:00:00 [facility] Influenza Virus 2016-05-16 Completed [facility] 3+ 00:00:00 [facility] Influenza Virus 2016-05-16 Completed [facility] 3+ 00:00:00 [facility] Influenza Virus 2016-05-16 Completed [facility] 3+ 00:00:00 [facility] Influenza Virus 2016-05-16 Completed [facility] 3+ 00:00:00 [facility] Influenza Virus 2016-05-16 Completed [facility] 3+ 00:00:00 [facility] Influenza Virus 2016-05-16 Completed [facility] 3+ 00:00:00 [facility] Influenza Virus 2016-05-16 Completed [facility] 3+ 00:00:00 [facility] Influenza Virus 2016-05-16 Completed [facility] 3+ 00:00:00 [facility] Influenza Virus 2016-05-16 Completed [facility] 3+ 00:00:00 [facility] Influenza Virus 2016-05-16 Completed [facility] 3+ 00:00:00 [facility] Influenza Virus 2016-05-16 Completed [facility] 3+ 00:00:00 [facility] Influenza Virus 2016-05-16 Completed [facility] 3+ 00:00:00 [facility] Influenza Virus 2016-05-16 Completed [facility] 3+ 00:00:00 [facility] Influenza Virus 2016-05-16 Completed [facility] 3+ 00:00:00 [facility] Influenza Virus 2016-05-16 Completed [facility] 3+ 00:00:00 [facility] Influenza Virus 2016-05-16 Completed [facility] 3+ 00:00:00 [facility] Influenza Virus 2016-05-16 Completed [facility] 3+ 00:00:00 [facility] Influenza Virus 2016-05-16 Completed [facility] 3+ 00:00:00 [facility] Influenza Virus 2016-05-16 Completed [facility] 3+ 00:00:00 [facility] Influenza Virus 2016-05-16 Completed [facility] 3+ 00:00:00 [facility] Influenza Virus 2016-05-16 Completed [facility] 3+ 00:00:00 [facility] Influenza Virus 2016-05-16 Completed [facility] 3+ 00:00:00 [facility] Influenza Virus 2016-05-16 Completed [facility] 3+ 00:00:00 [facility] Influenza Virus 2016-05-16 Completed [facility] 3+ 00:00:00 [facility] Influenza Virus 2016-05-16 Completed [facility] 3+ 00:00:00 [facility] Influenza Virus 2016-05-16 Completed [facility] 3+ 00:00:00 [facility] Influenza Virus 2016-05-16 Completed [facility] 3+ 00:00:00 [facility] Influenza Virus 2016-05-16 Completed [facility] 3+ 00:00:00 [facility] Influenza Virus 2016-05-16 Completed [facility] 3+ 00:00:00 [facility] Influenza Virus 2016-05-16 Completed [facility] 3+ 00:00:00 [facility] Influenza Virus 2016-05-16 Completed [facility] 3+ 00:00:00 [facility] Influenza Virus 2016-05-16 Completed [facility] 3+ 00:00:00 [facility] Influenza Virus 2016-05-16 Completed [facility] 3+ 00:00:00 [facility] Influenza Virus 2016-05-16 Completed [facility] 3+ 00:00:00 [facility] Influenza Virus 2016-05-16 Completed [facility] 3+ 00:00:00 [facility] Influenza Virus 2016-05-16 Completed [facility] 3+ 00:00:00 [facility] Influenza Virus 2016-05-16 Completed [facility] 3+ 00:00:00 [facility] Influenza Virus 2016-05-16 Completed [facility] 3+ 00:00:00 [facility] Influenza Virus 2016-05-16 Completed [facility] 3+ 00:00:00 [facility] Influenza Virus 2016-05-16 Completed [facility] 3+ 00:00:00 [facility] Influenza Virus 2016-05-16 Completed [facility] 3+ 00:00:00 [facility] Influenza Virus 2016-05-16 Completed [facility] 3+ 00:00:00 [facility] Influenza Virus 2016-05-16 Completed [facility] 3+ 00:00:00 [facility] Influenza Virus 2016-05-16 Completed [facility] 3+ 00:00:00 [facility] Influenza Virus 2016-05-16 Completed [facility] 3+ 00:00:00 [facility] Influenza Virus 2016-05-16 Completed [facility] 3+ 00:00:00 [facility] Influenza Virus 2016-05-16 Completed [facility] 3+ 00:00:00 [facility] Influenza Virus 2016-05-16 Completed [facility] 3+ 00:00:00 [facility] Influenza Virus 2016-05-16 Completed [facility] 3+ 00:00:00 [facility] Influenza Virus 2016-05-16 Completed [facility] 3+ 00:00:00 [facility] Influenza Virus 2016-05-16 Completed [facility] 3+ 00:00:00 [facility] Influenza Virus 2016-05-16 Completed [facility] 3+ 00:00:00 [facility] Influenza Virus 2016-05-16 Completed [facility] 3+ 00:00:00 [facility] Influenza Virus 2016-05-16 Completed [facility] 3+ 00:00:00 [facility] Influenza Virus 2016-05-16 Completed [facility] 3+ 00:00:00 [facility] Influenza Virus 2016-05-16 Completed [facility] 3+ 00:00:00 [facility] Influenza Virus 2016-05-16 Completed [facility] 3+ 00:00:00 [facility] Influenza Virus 2016-05-16 Completed [facility] 3+ 00:00:00 [facility] Influenza Virus 2016-05-16 Completed [facility] 3+ 00:00:00 [facility] Influenza Virus 2016-05-16 Completed [facility] 3+ 00:00:00 [facility] Influenza Virus 2016-05-16 Completed [facility] 3+ 00:00:00 [facility] Influenza Virus 2016-05-16 Completed [facility] 3+ 00:00:00 [facility] Influenza Virus 2016-05-16 Completed [facility] 3+ 00:00:00 [facility] Influenza Virus 2016-05-16 Completed [facility] 3+ 00:00:00 [facility] Influenza Virus 2016-05-16 Completed [facility] 3+ 00:00:00 [facility] Influenza Virus 2016-05-16 Completed [facility] 3+ 00:00:00 [facility] Influenza Virus 2016-05-16 Completed [facility] 3+ 00:00:00 [facility] Influenza Virus 2016-05-16 Completed [facility] 3+ 00:00:00 [facility] Influenza Virus 2016-05-16 Completed [facility] 3+ 00:00:00 [facility] Influenza Virus 2016-05-16 Completed [facility] 3+ 00:00:00 [facility] Influenza Virus 2016-05-16 Completed [facility] 3+ 00:00:00 [facility] Influenza Virus 2016-05-16 Completed [facility] 3+ 00:00:00 [facility] Influenza Virus 2016-05-16 Completed [facility] 3+ 00:00:00 [facility] Influenza Virus 2016-05-16 Completed [facility] 3+ 00:00:00 [facility] Influenza Virus 2016-05-16 Completed [facility] 3+ 00:00:00 [facility] Influenza Virus 2016-05-16 Completed [facility] 3+ 00:00:00 [facility] Influenza Virus 2016-05-16 Completed [facility] 3+ 00:00:00 [facility] Influenza Virus 2016-05-16 Completed [facility] 3+ 00:00:00 [facility] Influenza Virus 2016-05-16 Completed [facility] 3+ 00:00:00 [facility] Vital Signs Vital Name Observation Time Observation Value Comments Source Systolic blood 2023-03-20 110 mm[Hg] [facility] pressure 22:49:37 [facility] Diastolic blood 2023-03-20 64 mm[Hg] University o f pressure 22:49:37 [facility] Heart rate 2023-03-20 75 /min [facility] 22:49:37 [facility] Body temperature 2023-03-20 36.94 Tasia [facility] of 22:49:37 [facility] Respiratory rate 2023-03-20 17 /min [facility] of 22:49:37 [facility] Oxygen saturation 2023-03-20 99 /min [facility] in Arterial blood 22:49:37 [facility] by Pulse oximetry [place] Body height 2023-03-20 185.4 cm University of 19:26:00 [facility] Body weight 2023-03-20 65.772 kg University of 19:26:00 [facility] BMI 2023-03-20 19.13 kg/m2 University of 19:26:00 [facility] Systolic blood 2023-01-28 99 mm[Hg] [facility] pressure 16:47:00 [facility] Diastolic blood 2023-01-28 63 mm[Hg] University o f pressure 16:47:00 [facility] Heart rate 2023-01-28 79 /min [facility] of 16:47:00 [facility] Body temperature 2023-01-28 36.44 Tasia [facility] of 16:47:00 [facility] Respiratory rate 2023-01-28 12 /min [facility] of 16:47:00 [facility] Oxygen saturation 2023-01-28 100 /min [facility] of in Arterial blood 16:47:00 [facility] mariusz by Pulse oximetry Branch Body height 2023-01-27 185.4 cm University of 21:40:00 [facility] Body weight 2023-01-27 72.666 kg University of 21:40:00 [facility] [place] BMI 2023-01-27 21.14 kg/m2 University of 21:40:00 [facility] Systolic blood 2023-01-27 120 mm[Hg] [facility] pressure 04:00:00 [facility] Diastolic blood 2023-01-27 84 mm[Hg] University o f pressure 04:00:00 [facility] Heart rate 2023-01-27 84 /min [facility] of 04:00:00 [facility] Respiratory rate 2023-01-27 20 /min [facility] of 04:00:00 [facility] Oxygen saturation 2023-01-27 99 /min [facility] of in Arterial blood 04:00:00 [facility] mariusz by Pulse oximetry Branch Body temperature 2023-01-26 36.94 Tasia University of 23:28:00 [facility] Body height 2023-01-26 185.4 cm University of 23:28: [facility] Body weight 2023-01-26 68.04 kg University of 23:28:00 [facility] BMI 2023-01-26 19.79 kg/m2 University of 23:28:00 [facility] Systolic blood 2022-12-15 128 mm[Hg] [facility] pressure 00:23:00 [facility] Diastolic blood 2022-12-15 72 mm[Hg] University o f pressure 00:23:00 [facility] Heart rate 2022-12-15 90 /min University of 00:23:00 [facility] Body temperature 2022-12-15 36.94 Tasia [facility] of 00:23:00 [facility] Respiratory rate 2022-12-15 18 /min University of 00:23:00 [facility] Oxygen saturation 2022-12-15 100 /min University of in Arterial blood 00:23:00 [facility] mariusz by Pulse oximetry Branch Body weight 2022-12-14 68.04 kg University of 21:43:00 [facility] BMI 2022-12-14 19.79 kg/m2 University of 21:43:00 [facility] Systolic blood 2022-12-09 90 mm[Hg] [facility] of pressure 16:10:00 [facility] Diastolic blood 2022-12-09 51 mm[Hg] University o f pressure 16:10:00 [facility] Heart rate 2022-12-09 81 /min University of 16:10:00 [facility] Body temperature 2022-12-09 37 Tasia [facility] 16:10:00 [facility] Respiratory rate 2022-12-09 17 /min University of 16:10:00 [facility] Oxygen saturation 2022-12-09 97 /min University of in Arterial blood 16:10:00 [facility] by Pulse oximetry Branch Body height 2022-11-27 185.4 cm University of 21:01:00 [facility] Body weight 2022-11-27 68.04 kg University of 21:01:00 [facility] BMI 2022-11-27 19.79 kg/m2 University of 21:01:00 [facility] Systolic blood 2022-12-04 90 mm[Hg] [facility] of pressure 16:01:00 [facility] Diastolic blood 2022-12-04 57 mm[Hg] University o f pressure 16:01:00 [facility] Heart rate 2022-12-04 72 /min University of 16:01:00 [facility] Respiratory rate 2022-12-04 18 /min University of 16:01:00 [facility] Oxygen saturation 2022-12-04 96 /min [facility] of in Arterial blood 16:01:00 [facility] by Pulse oximetry Branch Body temperature 2022-12-04 36.67 Tasia University of 15:58:00 [facility] Body height 2022-11-27 185.4 cm University of 21:01:00 [facility] Body weight 2022-11-27 68.04 kg University of 21:01:00 [facility] BMI 2022-11-27 19.79 kg/m2 University of 21:01:00 [facility] Systolic blood 2022-11-22 97 mm[Hg] [facility] of pressure 16:45:00 [facility] Diastolic blood 2022-11-22 64 mm[Hg] University o f pressure 16:45:00 [facility] Heart rate 2022-11-22 75 /min University of 16:45:00 [facility] Body temperature 2022-11-22 35.56 Tasia [facility] of 16:45:00 [facility] Respiratory rate 2022-11-22 18 /min University of 16:45:00 [facility] Oxygen saturation 2022-11-22 100 /min University of in Arterial blood 16:45:00 [facility] mariusz by Pulse oximetry Branch Body weight 2022-11-20 70.3 kg University of 19:00:00 [facility] BMI 2022-11-20 20.45 kg/m2 University of 19:00:00 [facility] Body height 2022-11-20 185.4 cm University of 01:59:00 [facility] Systolic blood 2022-11-06 91 mm[Hg] [facility] of pressure 16:52:00 [facility] Diastolic blood 2022-11-06 55 mm[Hg] University o f pressure 16:52:00 [facility] Heart rate 2022-11-06 70 /min University of 16:52:00 [facility] Body temperature 2022-11-06 36.78 Tasia [facility] of 16:52:00 [facility] Respiratory rate 2022-11-06 20 /min University of 16:52:00 [facility] Oxygen saturation 2022-11-06 99 /min University of in Arterial blood 16:52:00 [facility] by Pulse oximetry Branch Body height 2022-11-02 185.4 cm University of 20:04:00 [facility] Body weight 2022-11-02 70.489 kg University of 20:04:00 [facility] BMI 2022-11-02 20.50 kg/m2 University of 20:04:00 [facility] Systolic blood 2022-10-20 102 mm[Hg] [facility] of pressure 04:30:00 [facility] Diastolic blood 2022-10-20 73 mm[Hg] University o f pressure 04:30:00 [facility] Heart rate 2022-10-20 83 /min University of 04:30:00 [facility] Respiratory rate 2022-10-20 19 /min University of 04:30:00 [facility] Oxygen saturation 2022-10-20 100 /min University of in Arterial blood 04:30:00 [facility] by Pulse oximetry Branch Body temperature 2022-10-20 36.61 Tasia University of :14:00 [facility] Body weight 2022-10-20 68.04 kg University of :14:00 [facility] BMI 2022-10-20 19.79 kg/m2 University of :14:00 [facility] Systolic blood 2022-05-21 103 mm[Hg] [facility] of pressure 17:00:00 [facility] Diastolic blood 2022-05-21 56 mm[Hg] University o f pressure 17:00:00 [facility] Heart rate 2022-05-21 71 /min University of 17:00:00 [facility] Respiratory rate 2022-05-21 11 /min University of 17:00:00 [facility] Oxygen saturation 2022-05-21 100 /min [facility] in Arterial blood 17:00:00 [facility] Body temperature 2022-05-21 36.39 Tasia [facility] of 12:10:00 [facility] Body weight 2022-05-21 69.491 kg University of 09:00:00 [facility] BMI 2022-05-21 20.21 kg/m2 University of 09:00:00 [facility] Body height 2022-05-20 185.4 cm University of 06:07:00 [facility] Systolic blood 2022-04-10 115 mm[Hg] [facility] of pressure 05:05:13 [facility] Diastolic blood 2022-04-10 93 mm[Hg] University o f pressure 05:05:13 [facility] Heart rate 2022-04-10 87 /min University of 05:05:13 [facility] Respiratory rate 2022-04-10 15 /min University of 05:05:13 [facility] Oxygen saturation 2022-04-10 100 /min [facility] in Arterial blood 05:05:13 [place] [facility]ulse [facility] Body temperature 2022-04-10 36.61 Tasia [facility] 01:35:00 [facility] Body height 2022-04-10 185.4 cm University of 01:35:00 [facility] Body weight 2022-04-10 68.04 kg [facility] 01:35:00 [facility] [facility] [place] BMI 2022-04-10 19.79 kg/m2 [facility] 01:35:00 [facility] Systolic blood 2022-04-08 86 mm[Hg] [facility] pressure 13:00:00 [facility] Diastolic blood 2022-04-08 75 mm[Hg] [facility] f pressure 13:00:00 [facility] Heart rate 2022-04-08 61 /min [facility] 13:00:00 [facility] Body temperature 2022-04-08 35.67 Tasia [facility] 13:00:00 [facility] Respiratory rate 2022-04-08 17 /min [facility] 13:00:00 [facility] Oxygen saturation 2022-04-08 95 /min [facility] in Arterial blood 13:00:00 [facility] by Pulse oximetry [place] Body weight 2022-04-06 72.984 kg [facility] 08:20:00 [facility] BMI 2022-04-06 21.23 kg/m2 [facility] 08:20:00 [facility] Body height 2022-04-02 185.4 cm [facility] 16:37:00 [facility] Systolic blood 2022-03-13 94 mm[Hg] [facility] pressure 15:33:00 Diastolic blood 2022-03-13 62 mm[Hg] [facility] h pressure 15:33:00 Heart rate 2022-03-13 109 /min [facility] 15:33:00 Body temperature 2022-03-13 36.67 Tasia [facility] 15:33:00 Respiratory rate 2022-03-13 20 /min [facility] 15:33:00 Body height 2022-03-13 185.4 cm [facility] 15:33:00 Body weight 2022-03-13 66.679 kg [facility] 15:33:00 BMI 2022-03-13 19.39 kg/m2 [facility] 15:33:00 Oxygen saturation 2022-03-13 100 /min [facility] in Arterial blood 15:33:00 by Pulse oximetry HEIGHT 2022-03-06 185.4 cm 12:05:00 WEIGHT 2022-03-06 65.772 kg 12:05:00 HEIGHT 2022-03-06 185.4 cm 12:05:00 WEIGHT 2022-03-06 65.772 kg 12:05:00 Systolic blood 2022-02-20 118 mm[Hg] [facility] pressure 08:01:00 Diastolic blood 2022-02-20 82 mm[Hg] [facility] h pressure 08:01:00 Heart rate 2022-02-20 67 /min [facility] 08:01:00 Body temperature 2022-02-20 36.44 Tasia [facility] 08:01:00 Respiratory rate 2022-02-20 17 /min [facility] 08:01:00 Oxygen saturation 2022-02-20 99 /min [facility] in Arterial blood 08:01:00 by Pulse oximetry Body height 2022-02-19 185.4 cm [facility] 16:00:00 Body weight 2022-02-19 69.945 kg [facility] 16:00:00 BMI 2022-02-19 20.34 kg/m2 [facility] 16:00:00 Systolic blood 2022-02-20 118 mm[Hg] [facility] pressure 08:01:00 Diastolic blood 2022-02-20 82 mm[Hg] [facility] 08:01:00 Heart rate 2022-02-20 67 /min [facility] 08:01:00 Body temperature 2022-02-20 36.44 Tasia [facility] 08:01:00 Respiratory rate 2022-02-20 17 /min [facility] 08:01:00 Oxygen saturation 2022-02-20 99 /min [facility] in Arterial blood 08:01:00 by Pulse oximetry Body height 2022-02-19 185.4 cm [facility] 16:00:00 Body weight 2022-02-19 69.945 kg [facility] 16:00:00 BMI 2022-02-19 20.34 kg/m2 [facility] 16:00:00 Systolic blood 2022-02-11 98 mm[Hg] [facility] pressure 11:30:00 Diastolic blood 2022-02-11 57 mm[Hg] [facility] 11:30:00 Heart rate 2022-02-11 62 /min [facility] 11:30:00 Body temperature 2022-02-11 37.17 Tasia [facility] 11:30:00 Respiratory rate 2022-02-11 11 /min [facility] 11:30:00 Oxygen saturation 2022-02-11 98 /min [facility] in Arterial blood 11:30:00 by Pulse oximetry Body height 2022-02-08 185.4 cm [facility] 01:10:00 Body weight 2022-02-08 70.761 kg [facility] 01:10:00 BMI 2022-02-08 20.58 kg/m2 [facility] 01:10:00 Systolic blood 2022-02-11 98 mm[Hg] [facility] pressure 11:30:00 Diastolic blood 2022-02-11 57 mm[Hg] [facility] pressure 11:30:00 Heart rate 2022-02-11 62 /min [facility] 11:30:00 Body temperature 2022-02-11 37.17 Tasia [facility] 11:30:00 Respiratory rate 2022-02-11 11 /min [facility] 11:30:00 Oxygen saturation 2022-02-11 98 /min [facility] in Arterial blood 11:30:00 by Pulse oximetry Body height 2022-02-08 185.4 cm [facility] 01:10:00 Body weight 2022-02-08 70.761 kg [facility] 01:10:00 BMI 2022-02-08 20.58 kg/m2 [facility] 01:10:00 Systolic blood 2021-09-14 106 mm[Hg] [facility] pressure 03:17:00 [facility] Diastolic blood 2021-09-14 55 mm[Hg] [facility] pressure 03:17:00 [facility] Heart rate 2021-09-14 86 /min [facility] 03:17:00 [facility] Body temperature 2021-09-14 36.89 Tasia [facility] 03:17:00 [facility] Respiratory rate 2021-09-14 18 /min [facility] 03:17:00 [facility] Oxygen saturation 2021-09-14 98 /min [facility] in Arterial blood 03:17:00 [facility] by Pulse oximetry [place] Systolic blood 2021-09-12 90 mm[Hg] [facility] pressure 22:20:00 [facility] Diastolic blood 2021-09-12 66 mm[Hg] [facility] pressure 22:20:00 [facility] Heart rate 2021-09-12 97 /min [facility] 22:20:00 [facility] Body temperature 2021-09-12 36.61 Tasia [facility] 22:20:00 [facility] Respiratory rate 2021-09-12 16 /min [facility] 22:20:00 [facility] Oxygen saturation 2021-09-12 98 /min [facility] in Arterial blood 22:20:00 [facility] by Pulse oximetry Branch Body weight 2021-09-12 68.04 kg [facility] 20:25:00 [facility] BMI 2021-09-12 19.79 kg/m2 [facility] 20:25:00 [facility] Systolic blood 2021-09-12 103 mm[Hg] [facility] pressure 13:29:00 [facility] Diastolic blood 2021-09-12 67 mm[Hg] [facility] pressure 13:29:00 [facility] Heart rate 2021-09-12 91 /min [facility] 13:29:00 [facility] Body temperature 2021-09-12 36.72 Tasia [facility] 13:29:00 [facility] Respiratory rate 2021-09-12 33 /min [facility] 13:29:00 [facility] Oxygen saturation 2021-09-12 98 /min [facility] in Arterial blood 13:29:00 [facility] Pulse oxim[facility] Body weight 2021-09-12 68.04 kg [facility] 12:17:00 [facility] BMI 2021-09-12 19.79 kg/m2 [facility] 12:17:00 [facility] Systolic blood 2021-09-09 100 mm[Hg] [facility] pressure 04:59:00 [facility] Diastolic blood 2021-09-09 60 mm[Hg] [facility] pressure 04:59:00 [facility] Heart rate 2021-09-09 85 /min [facility] 04:59:00 [facility] Body temperature 2021-09-09 36.5 Tasia [facility] 04:59:00 [facility] Respiratory rate 2021-09-09 16 /min [facility] 04:59:00 [facility] Body height 2021-09-09 185.4 cm [facility] 04:59:00 [facility] Body weight 2021-09-09 68.04 kg [facility] 04:59:00 [facility] BMI 2021-09-09 19.79 kg/m2 [facility] 04:59:00 [facility] Oxygen saturation 2021-09-09 98 /min [facility] in Arterial blood 04:59:00 [place] [facility] Pulse oximetry [facility] Systolic blood 2021-09-08 129 mm[Hg] [facility] pressure 05:42:00 [facility] Diastolic blood 2021-09-08 69 mm[Hg] [facility] pressure 05:42:00 [facility] Heart rate 2021-09-08 85 /min [facility] 05:42:00 [facility] Respiratory rate 2021-09-08 17 /min [facility] 05:42:00 [facility] Oxygen saturation 2021-09-08 98 /min [facility] in Arterial blood 05:42:00 [place] [facility] Pulse oximetry [facility] Body temperature 2021-09-08 37.44 Tasia [facility] 01:22:00 [facility] Body weight 2021-09-08 68 kg [facility] 01:22:00 [facility] BMI 2021-09-08 19.78 kg/m2 [facility] 01:22:00 [facility] Systolic blood 2021-09-06 123 mm[Hg] [facility] pressure 21:33:00 [facility] Diastolic blood 2021-09-06 65 mm[Hg] [facility] pressure 21:33:00 [facility] Heart rate 2021-09-06 91 /min [facility] 21:33:00 [facility] Body temperature 2021-09-06 36.39 Tasia [facility] 21:33:00 [facility] Respiratory rate 2021-09-06 18 /min [facility] 21:33:00 [facility] Body weight 2021-09-06 68.04 kg [facility] :33:00 [facility] BMI 2021-09-06 19.79 kg/m2 [facility] 21:33:00 [facility] Oxygen saturation 2021-09-06 100 /min [facility] in Arterial blood 21:33:00 [facility] by Pulse oximetry [facility] Systolic blood 2021-09-05 99 mm[Hg] [facility] pressure 17:16:00 [facility] Diastolic blood 2021-09-05 62 mm[Hg] [facility] pressure 17:16:00 [facility] Heart rate 2021-09-05 78 /min [facility] 17:16:00 [facility] Body temperature 2021-09-05 36.39 Tasia [facility] 17:16:00 [facility] Respiratory rate 2021-09-05 17 /min [facility] 17:16:00 [facility] Oxygen saturation 2021-09-05 95 /min [facility] in Arterial blood 17:16:00 [facility] by Pulse oximetry Branch Body height 2021-08-31 185.4 cm [facility] 07:29:00 [facility] Body weight 2021-08-31 68.04 kg [facility] 07:29:00 [facility] BMI 2021-08-31 19.79 kg/m2 [facility] 07:29:00 [facility] Systolic blood 2021-09-03 111 mm[Hg] [facility] pressure 15:59:00 [facility] Diastolic blood 2021-09-03 65 mm[Hg] [facility] pressure 15:59:00 [facility] Heart rate 2021-09-03 75 /min [facility] 15:59:00 [facility] Body temperature 2021-09-03 35.72 Tasia [facility] 15:59:00 [facility] Respiratory rate 2021-09-03 18 /min [facility] 15:59:00 [facility] Oxygen saturation 2021-09-03 100 /min [facility] in Arterial blood 15:59:00 [place] [facility] Pulse oxim[facility] Body height 2021-08-31 185.4 cm [facility] 07:29:00 [facility] Body weight 2021-08-31 68.04 kg [facility] 07:29:00 [facility] BMI 2021-08-31 19.79 kg/m2 [facility] 07:29:00 [facility] Systolic blood 2021-08-29 111 mm[Hg] [facility] pressure 23:12:00 [facility] Diastolic blood 2021-08-29 73 mm[Hg] [facility] pressure 23:12:00 [facility] Heart rate 2021-08-29 95 /min [facility] 23:12:00 [facility] Body temperature 2021-08-29 37 Tasia [facility] 23:12:00 [facility] Respiratory rate 2021-08-29 18 /min [facility] 23:12:00 [facility] Body weight 2021-08-29 68.04 kg [facility] 23:12:00 [facility] BMI 2021-08-29 19.79 kg/m2 [facility] 23:12:00 [facility] Oxygen saturation 2021-08-29 99 /min [facility] in Arterial blood 23:12:00 [place] [facility] by Pulse oximetry [facility] Systolic blood 2021-08-05 92 mm[Hg] [facility] pressure 10:56:00 [facility] Diastolic blood 2021-08-05 75 mm[Hg] [facility] pressure 10:56:00 [facility] Heart rate 2021-08-05 67 /min [facility] 10:56:00 [facility] Body temperature 2021-08-05 36.22 Tasia [facility] 10:56:00 [facility] Oxygen saturation 2021-08-05 93 /min [facility] in Arterial blood 10:56:00 [place] [facility] Pulse oximetry [facility] Respiratory rate 2021-08-05 16 /min [facility] 06:24:00 [facility] Body height 2021-07-30 185.4 cm [facility] 09:49:00 [facility] Body weight 2021-07-30 65.772 kg [facility] 09:49:00 [facility] BMI 2021-07-30 19.13 kg/m2 [facility] 09:49:00 [facility] Systolic blood 2021-07-26 107 mm[Hg] [facility] pressure 17:32:00 [facility] Diastolic blood 2021-07-26 69 mm[Hg] [facility] pressure 17:32:00 [facility] Heart rate 2021-07-26 70 /min [facility] 17:32:00 [facility] Body temperature 2021-07-26 36.39 Tasia [facility] 17:32:00 [facility] Respiratory rate 2021-07-26 16 /min [facility] 17:32:00 [facility] Oxygen saturation 2021-07-26 96 /min [facility] in Arterial blood 17:32:00 [facility] by Pulse oximetry [facility] Body height 2021-07-23 185.4 cm [facility] 08:40:00 [facility] Body weight 2021-07-23 84.5 kg [facility] 08:40:00 [facility] BMI 2021-07-23 24.58 kg/m2 [facility] 08:40:00 [facility] Systolic blood 2021-06-04 95 mm[Hg] [facility] pressure 16:20:00 [facility] Diastolic blood 2021-06-04 60 mm[Hg] [facility] pressure 16:20:00 [facility] Heart rate 2021-06-04 61 /min [facility] 16:20:00 [facility] Body temperature 2021-06-04 36.17 Tasia [facility] 16:20:00 [facility] Respiratory rate 2021-06-04 18 /min [facility] 16:20:00 [facility] Oxygen saturation 2021-06-04 100 /min [facility] in Arterial blood 16:20:00 [facility] mariusz by Pulse oximetry Branch Body weight 2021-06-01 65.772 kg [facility] 19:00:00 [facility] BMI 2021-06-01 19.13 kg/m2 [facility] 19:00:00 [facility] Body height 2021-05-31 185.4 cm [facility] 22:12:00 [facility] Systolic blood 2021-05-21 101 mm[Hg] [facility] pressure 20:21:00 [facility] Diastolic blood 2021-05-21 68 mm[Hg] [facility] pressure 20:21:00 [facility] Heart rate 2021-05-21 74 /min [facility] 20:21:00 [facility] Body temperature 2021-05-21 36.56 Tasia [facility] 20:21:00 [facility] Respiratory rate 2021-05-21 18 /min [facility] 20:21:00 [facility] Oxygen saturation 2021-05-21 99 /min [facility] in Arterial blood 20:21:00 [facility] by Pulse oximetry [facility] Body height 2021-05-21 185.4 cm [facility] 00:15:00 [facility] Body weight 2021-05-21 65.772 kg [facility] 00:15:00 [facility] BMI 2021-05-21 19.13 kg/m2 [facility] 00:15:00 [facility] Systolic blood 2021-05-09 101 mm[Hg] [facility] pressure 16:32:00 [facility] Diastolic blood 2021-05-09 70 mm[Hg] [facility] pressure 16:32:00 [facility] Heart rate 2021-05-09 69 /min [facility] 16:32:00 [facility] Body temperature 2021-05-09 36.72 Tasia [facility] 16:32:00 [facility] Respiratory rate 2021-05-09 16 /min [facility] 16:32:00 [facility] Oxygen saturation 2021-05-09 99 /min [facility] in Arterial blood 16:32:00 [facility] by Pulse oximetry Branch Body height 2021-05-08 185.4 cm [facility] 05:48:00 [facility] Body weight 2021-05-08 80.196 kg [facility] 05:48:00 [facility] BMI 2021-05-08 23.33 kg/m2 [facility] 05:48:00 [facility] Heart rate 2020-09-27 89 /min [facility] 04:25:00 [facility] Respiratory rate 2020-09-27 20 /min [facility] 04:25:00 [facility] Oxygen saturation 2020-09-27 99 /min [facility] in Arterial blood 04:25:00 [facility] by Pulse oximetry [facility] Systolic blood 2020-09-27 103 mm[Hg] [facility] pressure 04:02:00 [facility] Diastolic blood 2020-09-27 78 mm[Hg] [facility] pressure 04:02:00 [facility] Body temperature 2020-09-27 36.72 Tasia [facility] 04:00:00 [facility] Body weight 2020-09-26 79.379 kg [facility] 22:35:00 [facility] BMI 2020-09-26 23.09 kg/m2 [facility] 22:35:00 [facility] Systolic blood 2020-08-24 105 mm[Hg] [facility] pressure 17:24:00 [facility] Diastolic blood 2020-08-24 64 mm[Hg] [facility] pressure 17:24:00 [facility] Heart rate 2020-08-24 83 /min [facility] 17:24:00 [facility] Body temperature 2020-08-24 36.56 Tasia [facility] 17:24:00 [facility] Respiratory rate 2020-08-24 16 /min [facility] 17:24:00 [facility] Oxygen saturation 2020-08-24 98 /min [facility] in Arterial blood 17:24:00 [facility] by Pulse oximetry [place] Body height 2020-08-23 185.4 cm [facility] 03:19:00 [facility] Body weight 2020-08-23 79.379 kg [facility] 03:19:00 [facility] BMI 2020-08-23 23.09 kg/m2 [facility] 03:19:00 [facility] Systolic blood 2020-07-10 126 mm[Hg] [facility] pressure 01:32:00 [facility] Diastolic blood 2020-07-10 67 mm[Hg] [facility] pressure 01:32:00 [facility] Heart rate 2020-07-10 92 /min [facility] :32:00 [facility] Body temperature 2020-07-10 37.17 Tasia [facility] :32:00 [facility] Respiratory rate 2020-07-10 16 /min [facility] :32:00 [facility] Oxygen saturation 2020-07-10 100 /min [facility] in Arterial blood 01:32:00 [facility] mariusz by Pulse oximetry [place] Body height 2020-07-09 154.9 cm [facility] :23:00 [facility] Body weight 2020-07-09 68.04 kg [facility] :23:00 [facility] BMI 2020-07-09 28.34 kg/m2 [facility] 22:23:00 [facility] Systolic blood 2020-06-05 106 mm[Hg] [facility] pressure 15:00:00 [facility] Diastolic blood 2020-06-05 72 mm[Hg] [facility] pressure 15:00:00 [facility] Heart rate 2020-06-05 84 /min [facility] 15:00:00 [facility] Respiratory rate 2020-06-05 18 /min [facility] 15:00:00 [facility] Oxygen saturation 2020-06-05 100 /min [facility] in Arterial blood 15:00:00 [facility] by Pulse oximetry [facility] Body temperature 2020-06-05 36.61 Tasia [facility] 14:54:52 [facility] Body weight 2020-06-05 65.772 kg [facility] 11:48:00 [facility] BMI 2020-06-05 19.13 kg/m2 [facility] 11:48:00 [facility] Systolic blood 2020-06-04 130 mm[Hg] [facility] pressure 18:30:00 [facility] Diastolic blood 2020-06-04 84 mm[Hg] [facility] pressure 18:30:00 [facility] Heart rate 2020-06-04 72 /min [facility] 18:30:00 [facility] Body temperature 2020-06-04 36.72 Tasia [facility] 18:30:00 [facility] Respiratory rate 2020-06-04 16 /min [facility] 18:30:00 [facility] Oxygen saturation 2020-06-04 98 /min [facility] in Arterial blood 18:30:00 [facility] by Pulse oximetry [facility] Systolic blood 2020-05-31 90 mm[Hg] [facility] pressure 19:59:00 [facility] Diastolic blood 2020-05-31 59 mm[Hg] [facility] pressure 19:59:00 [facility] Heart rate 2020-05-31 88 /min [facility] 19:59:00 [facility] Body temperature 2020-05-31 36.78 Tasia [facility] 19:59:00 [facility] Respiratory rate 2020-05-31 16 /min [facility] 19:59:00 [facility] Oxygen saturation 2020-05-31 98 /min [facility] in Arterial blood 19:59:00 [facility] by Pulse oximetry [facility] Body height 2020-05-30 185.4 cm [facility] 18:29:00 [facility] Body weight 2020-05-30 69.5 kg weighed in bed [facility] 18:29:00 [facility] BMI 2020-05-30 20.21 kg/m2 [facility] 18:29:00 [facility] Systolic blood 2020-05-22 100 mm[Hg] [facility] pressure 04:38:00 [facility] Diastolic blood 2020-05-22 71 mm[Hg] [facility] pressure 04:38:00 [facility] Heart rate 2020-05-22 90 /min [facility] 04:38:00 [facility] Respiratory rate 2020-05-22 18 /min [facility] 04:38:00 [facility] Oxygen saturation 2020-05-22 97 /min [facility] in Arterial blood 04:38:00 [facility] mariusz by Pulse oximetry [facility] Body temperature 2020-05-22 36.83 Tasia [facility] 02:02:11 [facility] Body height 2020-05-22 185.4 cm [facility] of 01:59:00 [facility] Body weight 2020-05-22 65.772 kg University of 01:59:00 [facility] BMI 2020-05-22 19.13 kg/m2 [facility] of 01:59:00 [facility] Systolic blood 2020-05-20 95 mm[Hg] University of pressure 18:33:34 [facility] Diastolic blood 2020-05-20 62 mm[Hg] University o f pressure 18:33:34 [facility] Heart rate 2020-05-20 86 /min University of 18:33:34 [facility] Respiratory rate 2020-05-20 20 /min University of 18:33:34 [facility] Oxygen saturation 2020-05-20 98 /min University of in Arterial blood 18:33:34 [facility] by Pulse oximetry Branch Body temperature 2020-05-20 37 Tasia University of 12:02:00 [facility] Body weight 2020-05-20 65.8 kg University of 12:02:00 [facility] BMI 2020-05-20 19.14 kg/m2 University of 12:02:00 [facility] Systolic blood 2020-05-20 101 mm[Hg] University of pressure 10:58:00 [facility] Diastolic blood 2020-05-20 56 mm[Hg] University o f pressure 10:58:00 [facility] Heart rate 2020-05-20 79 /min University of 10:58:00 [facility] Body temperature 2020-05-20 37 Tasia University of 10:58:00 [facility] Respiratory rate 2020-05-20 16 /min [facility] of 10:58:00 [facility] Oxygen saturation 2020-05-20 99 /min University of in Arterial blood 10:58:00 [facility] by Pulse oximetry Branch Body height 2020-05-20 185.4 cm University of 02:36:00 [facility] Body weight 2020-05-20 65.772 kg University of 02:36:00 [facility] BMI 2020-05-20 19.13 kg/m2 University of 02:36:00 [facility] Systolic blood 2020-05-12 93 mm[Hg] University of pressure 17:02:00 [facility] Diastolic blood 2020-05-12 61 mm[Hg] University o f pressure 17:02:00 [facility] Body temperature 2020-05-12 37.06 Tasia University of 17:02:00 [facility] Heart rate 2020-05-12 74 /min University of 09:00:00 [facility] Respiratory rate 2020-05-12 18 /min [facility] of 09:00:00 [facility] Oxygen saturation 2020-05-12 95 /min University of in Arterial blood 09:00:00 [facility] by Pulse oximetry Branch Body height 2020-05-05 185.4 cm University of 09:05:00 [facility] Body weight 2020-05-05 65.772 kg University of 09:05:00 [facility] BMI 2020-05-05 19.13 kg/m2 University of 09:05:00 [facility] Systolic blood 2020-05-03 107 mm[Hg] University of pressure 04:30:00 [facility] Diastolic blood 2020-05-03 62 mm[Hg] University o f pressure 04:30:00 [facility] Heart rate 2020-05-03 105 /min University of 04:30:00 [facility] Body temperature 2020-05-03 37.22 Tasia University of 04:30:00 [facility] Respiratory rate 2020-05-03 14 /min University of 04:30:00 [facility] Body height 2020-05-03 185.4 cm University of 04:30:00 [facility] Body weight 2020-05-03 65.772 kg University of 04:30:00 [facility] BMI 2020-05-03 19.13 kg/m2 University of 04:30:00 [facility] Systolic blood 2020-05-02 105 mm[Hg] University of pressure 12:46:00 [facility] Diastolic blood 2020-05-02 57 mm[Hg] University o f pressure 12:46:00 [facility] Heart rate 2020-05-02 79 /min University of 12:46:00 [facility] Body temperature 2020-05-02 36.28 Tasia University of 12:46:00 [facility] Respiratory rate 2020-05-02 16 /min University of 12:46:00 [facility] Oxygen saturation 2020-05-02 98 /min University of in Arterial blood 12:46:00 [facility] mariusz by Pulse oximetry Branch Body height 2020-04-16 185.4 cm University of 20:11:00 [facility] Body weight 2020-04-16 79.379 kg University of 20:11:00 [facility] BMI 2020-04-16 23.09 kg/m2 University of 20:11:00 [facility] Respiratory rate 2020-04-06 12 /min University of 16:20:00 [facility] Systolic blood 2020-03-28 125 mm[Hg] University of pressure 16:00:00 [facility] Diastolic blood 2020-03-28 87 mm[Hg] University o f pressure 16:00:00 [facility] Heart rate 2020-03-28 74 /min University of 16:00:00 [facility] Body temperature 2020-03-28 36.44 Tasia University of 16:00:00 [facility] Respiratory rate 2020-03-28 18 /min University of 16:00:00 [facility] Oxygen saturation 2020-03-28 100 /min University of in Arterial blood 16:00:00 [facility] mariusz by Pulse oximetry Branch Body height 2020-03-26 185.4 cm University of 03:49:00 [facility] Body weight 2020-03-26 74.844 kg University of 03:49:00 [facility] BMI 2020-03-26 21.77 kg/m2 University of 03:49:00 [facility] Systolic blood 2020-03-05 107 mm[Hg] University of pressure 16:00:00 [facility] Diastolic blood 2020-03-05 67 mm[Hg] University o f pressure 16:00:00 [facility] Heart rate 2020-03-05 56 /min University of 16:00:00 [facility] Body temperature 2020-03-05 36.5 Tasia University of 16:00:00 [facility] Respiratory rate 2020-03-05 18 /min University of 16:00:00 [facility] Oxygen saturation 2020-03-05 100 /min University of in Arterial blood 16:00:00 [facility] by Pulse oximetry Branch Body height 2020-03-03 185.4 cm University of 05:49:00 [facility] Body weight 2020-03-03 71.668 kg University of 05:49:00 [facility] BMI 2020-03-03 20.85 kg/m2 University of 05:49:00 [facility] Systolic blood 2020-02-27 100 mm[Hg] University of pressure 21:12:00 [facility] Diastolic blood 2020-02-27 74 mm[Hg] University o f pressure 21:12:00 [facility] Heart rate 2020-02-27 90 /min University of 21:12:00 [facility] Body temperature 2020-02-27 35.78 Tasia University of 21:12:00 [facility] Respiratory rate 2020-02-27 19 /min University of 21:12:00 [facility] Oxygen saturation 2020-02-27 99 /min University of in Arterial blood 21:12:00 [facility] by Pulse oximetry Branch Body weight 2020-02-26 71.215 kg University of 23:05:00 [facility] BMI 2020-02-26 20.71 kg/m2 University of 23:05:00 [facility] Systolic blood 2020-02-26 132 mm[Hg] University of pressure 07:43:00 [facility] Diastolic blood 2020-02-26 71 mm[Hg] University o f pressure 07:43:00 [facility] Heart rate 2020-02-26 82 /min University of 07:43:00 [facility] Respiratory rate 2020-02-26 18 /min University of 07:43:00 [facility] Oxygen saturation 2020-02-26 100 /min University of in Arterial blood 07:43:00 [facility] by Pulse oximetry [place] Body temperature 2020-02-26 36.94 Tasia University of 04:57:00 [facility] Body height 2020-02-26 185.4 cm University of 02:30:00 [facility] Body weight 2020-02-26 68.04 kg University of 02:30:00 [facility] BMI 2020-02-26 19.79 kg/m2 University of 02:30:00 [facility] Systolic blood 2020-02-05 100 mm[Hg] [facility] of pressure 16:00:00 [facility] Diastolic blood 2020-02-05 61 mm[Hg] University o f pressure 16:00:00 [facility] Heart rate 2020-02-05 60 /min [facility] of 16:00:00 [facility] Body temperature 2020-02-05 36.67 Tasia University of 16:00:00 [facility] Respiratory rate 2020-02-05 17 /min University of 16:00:00 [facility] Oxygen saturation 2020-02-05 98 /min University of in Arterial blood 16:00:00 [facility] mariusz by Pulse oximetry Branch Body height 2020-01-28 185.4 cm University of 23:13:00 [facility] Body weight 2020-01-28 68.04 kg University of 23:13:00 [facility] BMI 2020-01-28 19.79 kg/m2 University of 23:13:00 [facility] Systolic blood 2020-02-05 100 mm[Hg] University of pressure 16:00:00 [facility] Diastolic blood 2020-02-05 61 mm[Hg] University o f pressure 16:00:00 [facility] Heart rate 2020-02-05 60 /min University of 16:00:00 [facility] Body temperature 2020-02-05 36.67 Tasia University of 16:00:00 [facility] Respiratory rate 2020-02-05 17 /min University of 16:00:00 [facility] Oxygen saturation 2020-02-05 98 /min University of in Arterial blood 16:00:00 [facility] mariusz by Pulse oximetry Branch Body height 2020-01-28 185.4 cm University of 23:13:00 [facility] Body weight 2020-01-28 68.04 kg University of 23:13:00 [facility] BMI 2020-01-28 19.79 kg/m2 University of 23:13:00 [facility] Systolic blood 2020-01-27 114 mm[Hg] University of pressure 00:32:00 [facility] Diastolic blood 2020-01-27 66 mm[Hg] University o f pressure 00:32:00 [facility] Heart rate 2020-01-27 73 /min University of 00:32:00 [facility] Body temperature 2020-01-27 36.67 Tasia University of 00:32:00 [facility] Respiratory rate 2020-01-27 18 /min [facility] of 00:32:00 [facility] Oxygen saturation 2020-01-27 97 /min [facility] in Arterial blood 00:32:00 [facility] Pulse oxim[facility] Body height 2020-01-24 185.4 cm University of 23:55:00 [facility] Body weight 2020-01-24 68.04 kg University of :55:00 [facility] BMI 2020-01-24 19.79 kg/m2 University of :55:00 [facility] Systolic blood 2020-01-27 114 mm[Hg] University of pressure :32:00 [facility] Diastolic blood 2020-01-27 66 mm[Hg] University o f pressure 00:32:00 [facility] Heart rate 2020-01-27 73 /min University of :32:00 [facility] Body temperature 2020-01-27 36.67 Tasia University of 00:32:00 [facility] Respiratory rate 2020-01-27 18 /min University of :32:00 [facility] Oxygen saturation 2020-01-27 97 /min [place] [facility] in Arterial blood 00:32:00 [facility] by Pulse oximetry Branch Body height 2020-01-24 185.4 cm University of :55:00 [facility] Body weight 2020-01-24 68.04 kg University of :55:00 [facility] BMI 2020-01-24 19.79 kg/m2 University of :55:00 [facility] Body temperature 2019-12-13 36.72 Tasia University of 02:56:16 [facility] Systolic blood 2019-12-13 114 mm[Hg] [facility] of pressure 01:57:00 [facility] Diastolic blood 2019-12-13 77 mm[Hg] University o f pressure 01:57:00 [facility] Heart rate 2019-12-13 75 /min University of :57:00 [facility] Respiratory rate 2019-12-13 20 /min University of :57:00 [facility] Body height 2019-12-13 185.4 cm University of :57:00 [facility] Body weight 2019-12-13 68.04 kg University of :57:00 [facility] BMI 2019-12-13 19.79 kg/m2 University of :57:00 [facility] Oxygen saturation 2019-12-13 97 /min University of in Arterial blood 01:57:00 [facility] by Pulse oximetry Branch Body temperature 2019-12-13 36.72 Tasia [facility] 02:56:16 [facility] Systolic blood 2019-12-13 114 mm[Hg] University of pressure 01:57:00 [facility] Diastolic blood 2019-12-13 77 mm[Hg] [facility] o f pressure 01:57:00 [facility] Heart rate 2019-12-13 75 /min [facility] 01:57:00 [facility] Respiratory rate 2019-12-13 20 /min [facility] :57:00 [facility] Body height 2019-12-13 185.4 cm [facility] 01:57:00 [facility] Body weight 2019-12-13 68.04 kg [facility] :57:00 [facility] BMI 2019-12-13 19.79 kg/m2 [facility] 01:57:00 [facility] Oxygen saturation 2019-12-13 97 /min [facility] in Arterial blood 01:57:00 [facility] by Pulse oximetry [place] Systolic blood 2022-03-13 94 mm[Hg] [facility] pressure 15:33:00 Diastolic blood 2022-03-13 62 mm[Hg] [facility] h pressure 15:33:00 Heart rate 2022-03-13 109 /min [facility] 15:33:00 Body temperature 2022-03-13 36.67 Tasia [facility] th 15:33:00 Respiratory rate 2022-03-13 20 /min [facility] 15:33:00 Body height 2022-03-13 185.4 cm [facility] 15:33:00 Body weight 2022-03-13 66.679 kg [facility] 15:33:00 BMI 2022-03-13 19.39 kg/m2 [facility] 15:33:00 Oxygen saturation 2022-03-13 100 /min [facility] Arterial blood 15:33:00 by Pulse oximetry Systolic blood 2022-03-09 107 mm[Hg] [facility] pressure 11:00:00 [facility] Diastolic blood 2022-03-09 66 mm[Hg] [facility] pressure 11:00:00 [facility] Heart rate 2022-03-09 58 /min [facility] 11:00:00 [facility] Body temperature 2022-03-[address] [facility] 11:00:00 [facility] Respiratory rate 2022-03-09 16 /min [facility] 11:00:00 [facility] Oxygen saturation 2022-03-09 100 /min [facility] in Arterial blood 11:00:00 [facility] nter by Pulse oximetry Body height 2022-03-[address] [facility] 12:05:00 [facility] Body weight 2022-03-06 65.772 kg [facility] 12:05:00 [facility] BMI 2022-03-06 19.13 kg/m2 [facility] 12:05:00 [facility] Procedures Procedure Date / Time Performing Clinician Source Performed EKG-12 LEAD 2023-03-20 22:24:24 Shy [facility] LACTIC ACID WHOLE BLOOD 2023-03-20 20:41:00 Shy [facility] CREATINE KINASE 2023-03-20 20:27:00 [place], [facility] LIPASE 2023-03-20 20:27:00 Shy [facility] COMP. METABOLIC PANEL 2023-03-20 20:27:00 Shy [facility] ([id number] Medical Branch ETHANOL 2023-03-20 20:27:00 Shy [facility] CBC WITH DIFF 2023-03-20 20:27:00 Robledo [facility] EXTERNAL PROVIDER RECORDS 2023-02-12 05:01:00 Doctor Unassigned, [facility] [place] [facility] URINE DRUG (IMMUNOASSAY) - 2023-01-28 11:00:00 Samantha [facility] COMPREHENSIVE DRUG SCREEN [facility] MAGNESIUM 2023-01-28 10:49:00 [facility] BASIC METABOLIC PANEL (NA, 2023-01-28 10:49:00 Kodi Gonzalez ii [facility] K, CL, CO2, GLUCOSE, BUN, [facility] CREATININE, CA) CBC WITH DIFF 2023-01-28 10:49:00 [facility] 2023-01-27 22:43:00 [facility] HEPATIC FUNCTION PANEL 2023-01-27 22:43:00 [place], [facility] ([id number]) (ALB,T.PRO,BILI [facility] T,BU/BC,ALT,AST,ALK PHOS) BASIC METABOLIC PANEL (NA, 2023-01-27 22:43:00 [place], [facility] K, CL, CO2, GLUCOSE, BUN, [facility] CREATININE, CA) CBC WITH DIFF 2023-01-27 22:43:00 [place] [facility] GLYCOSYLATED HEMOGLOBIN 2023-01-27 22:43:00 [facility] (A1C) [facility] URINALYSIS 2023-01-27 02:30:00 [facility] BASIC METABOLIC PANEL (NA, 2022-12-07 15:38:00 Robb Flores [facility] K, CL, CO2, GLUCOSE, BUN, Medica l Branch CREATININE, CA) XR KUB 2022-12-06 02:15:02 Kodi Gonzalez [facility] ILEOSTOMY TAKEDOWN 2022-12-04 17:34:00 [place], [facility] ANASTOMOSIS BOWEL 2022-12-04 17:34:00 [place], [facility] COLONOSCOPY 2022-12-04 17:34:00 [place], [facility] ILEOSTOMY TAKEDOWN 2022-12-04 17:34:00 [place], [facility] ANASTOMOSIS BOWEL 2022-12-04 17:34:00 Phatak, [facility] COLONOSCOPY 2022-12-04 17:34:00 [place], [facility] MAGNESIUM 2022-12-04 10:19:00 Gayatri Pyle [facility] BASIC METABOLIC PANEL (NA, 2022-12-04 10:19:00 Gayatri Pyle [facility] K, CL, CO2, GLUCOSE, BUN, Medica l Branch CREATININE, CA) CBC WITH DIFF 2022-12-04 10:19:00 Gayatri Pyle [facility] PROTHROMBIN TIME / INR 2022-12-04 10:19:00 Gayatri Pyle [facility] ACTIVATED PARTIAL THRMPLAS 2022-12-04 10:19:00 Gayatri Pyle [facility] MAGNESIUM 2022-12-04 10:19:00 Gayatri Pyle [facility] BASIC METABOLIC PANEL (NA, 2022-12-04 10:19:00 Gayatri Pyle [facility] K, CL, CO2, GLUCOSE, BUN, Medica l Branch CREATININE, CA) CBC WITH DIFF 2022-12-04 10:19:00 Gayatri Pyle [facility] PROTHROMBIN TIME / INR 2022-12-04 10:19:00 Gayatri Pyle [facility] ACTIVATED PARTIAL THRMPLAS 2022-12-04 10:19:00 Gayatri Pyle [facility] MAGNESIUM 2022-12-03 10:42:00 Gayatri Pyle [facility] BASIC METABOLIC PANEL (NA, 2022-12-03 10:42:00 Gayatri Pyle [facility] K, CL, CO2, GLUCOSE, BUN, Medica l Branch CREATININE, CA) CBC WITH DIFF 2022-12-03 10:42:00 Gayatri Pyle [facility] MAGNESIUM 2022-12-03 10:42:00 Gayatri Pyle [facility] BASIC METABOLIC PANEL (NA, 2022-12-03 10:42:00 Gayatri Pyle [facility] K, CL, CO2, GLUCOSE, BUN, Medica l Branch CREATININE, CA) CBC WITH DIFF 2022-12-03 10:42:00 Gayatri Pyle [facility] HB ABO GROUPING 2022-12-02 21:21:00 Mark [facility] HB ABO GROUPING 2022-12-02 21:21[facility] 2022-12-02 09:47:00 Gayatri Pyle [facility] MAGNESIUM 2022-12-02 09:47:00 Sabi Jules [facility] BASIC METABOLIC PANEL (NA, 2022-12-02 09:47:00 Lisa Jules [facility] K, CL, CO2, GLUCOSE, BUN, C. Medica l Branch CREATININE, CA) PHOSPHORUS 2022-12-02 09:47:00 Gayatri Pyle [facility] MAGNESIUM 2022-12-02 09:47:00 [facility] BASIC METABOLIC PANEL (NA, 2022-12-02 09:47:00 Lisa Jules [facility] K, CL, CO2, GLUCOSE, BUN, C. Medica l Branch CREATININE, CA) TRANSTHORACIC ECHO (TTE) 2022-12-01 14:48:00 Dostal [facility] COMPLETE W/ CONTRAST [facility] TRANSTHORACIC ECHO (TTE) 2022-12-01 14:48:00 Dostal, [facility] W/ CONTRAST Medical [facility] MAGNESIUM 2022-12-01 10:03:00 Gayatri Pyle [facility] BASIC METABOLIC PANEL (NA, 2022-12-01 10:03:00 Gayatri Pyle [facility] K, CL, CO2, GLUCOSE, BUN, Medica l Branch CREATININE, CA) CBC WITH DIFF 2022-12-01 10:03:00 Gayatri Pyle [facility] MAGNESIUM 2022-12-01 10:03:00 Gayatri Pyle [facility] BASIC METABOLIC PANEL (NA, 2022-12-01 10:03:00 Gayatri Pyle [facility] K, CL, CO2, GLUCOSE, BUN, Medica l Branch CREATININE, CA) CBC WITH DIFF 2022-12-01 10:03:00 Gayatri Pyle [facility] MAGNESIUM 2022-11-30 09:48:00 Sabi Jules [facility] BASIC METABOLIC PANEL (NA, 2022-11-30 09:48:00 Lisa Jules [facility] K, CL, CO2, GLUCOSE, BUN, C. Medica l Branch CREATININE, CA) CBC WITH DIFF 2022-11-30 09:48:00 [facility] MAGNESIUM 2022-11-30 09:48:00 [facility] BASIC METABOLIC PANEL (NA, 2022-11-30 09:48:00 Lisa Jules [facility] K, CL, CO2, GLUCOSE, BUN, C. Medica l Branch CREATININE, CA) CBC WITH DIFF 2022-11-30 09:48:00 Sabi Jules [facility] LACTIC ACID WHOLE BLOOD 2022-11-29 13:40:00 Dostal [facility] LACTIC ACID WHOLE BLOOD 2022-11-29 13:40:00 Dostal, [facility] MAGNESIUM 2022-11-29 08:43:00 PyleGayatri [facility] BASIC METABOLIC PANEL (NA, 2022-11-29 08:43:00 PyleGayatri [facility]field [facility] K, CL, CO2, GLUCOSE, BUN, Medica l Branch CREATININE, CA) CBC WITH DIFF 2022-11-29 08:43:00 Gayatri Pyle [facility] MAGNESIUM 2022-11-29 08:43:00 PyleGayatri [facility] BASIC METABOLIC PANEL (NA, 2022-11-29 08:43:00 Gayatri Pyle [facility] K, CL, CO2, GLUCOSE, BUN, Medica l Branch CREATININE, CA) CBC WITH DIFF 2022-11-29 08:43:00 Gayatri Pyle [facility] MAGNESIUM 2022-11-28 21:15:00 PyleGayatri [facility] BASIC METABOLIC PANEL (NA, 2022-11-28 21:15:00 PyleGayatri hatfield [facility] K, CL, CO2, GLUCOSE, BUN, Medica l Branch CREATININE, CA) CBC WITH DIFF 2022-11-28 21:15:00 Gayatri Pyle [facility] MAGNESIUM 2022-11-28 21:15:00 PyleGayatri hatfield [facility] BASIC METABOLIC PANEL (NA, 2022-11-28 21:15:00 PyleGayatri hatfield [facility] K, CL, CO2, GLUCOSE, BUN, Medica l Branch CREATININE, CA) CBC WITH DIFF 2022-11-28 21:15:00 Gayatri Pyle [facility] PREALBUMIN, SERUM 2022-11-28 07:25:00 Grant Cheema, [facility] ALBUMIN 2022-11-28 07:25:00 Grant Cheema, [facility] MAGNESIUM 2022-11-28 07:25:00 Abbeau[facility] BASIC METABOLIC PANEL (NA, 2022-11-28 07:25:00 Irene-Varsha Victor [facility] K, CL, CO2, GLUCOSE, BUN, [facility] CREATININE, CA) PREALBUMIN, SERUM 2022-11-28 07:25:00 Grant Cheema, [facility] ALBUMIN 2022-11-28 07:25:00 Grant Cheema, [facility] MAGNESIUM 2022-11-28 07:25:00 Irene-Varsha Victor [facility] o [facility] BASIC METABOLIC PANEL (NA, 2022-11-28 07:25:00 Irene-Varsha [facility] K, CL, CO2, GLUCOSE, BUN, [facility] CREATININE, CA) LACTIC ACID WHOLE BLOOD 2022-11-27 20:46:00 Abu-Varsha Victor [facility] LACTIC ACID WHOLE BLOOD 2022-11-27 20:46:00 Abu[facility] BASIC METABOLIC PANEL (NA, 2022-11-27 18:36:00 Dwain Junior [facility] K, CL, CO2, GLUCOSE, BUN, Medica l Branch CREATININE, CA) BASIC METABOLIC PANEL (NA, 2022-11-27 18:36:00 Dwain Junior [facility] K, CL, CO2, GLUCOSE, BUN, Medica l Branch CREATININE, CA) URINALYSIS 2022-11-27 15:58:00 Dwain [facility] CREATININE, URINE RANDOM 2022-11-27 15:58:00 Varsha Meza [facility] UREA NITROGEN, URINE 2022-11-27 15:58:[address] [facility] SODIUM, URINE RANDOM 2022-11-27 15:58:00 Abbeau-Renetta Victora [facility] ity [facility] URINALYSIS 2022-11-27 15:58:00 Dwain [facility] CREATININE, URINE RANDOM 2022-11-27 15:58:00 [facility] UREA NITROGEN, URINE 2022-11-27 15:58:00 Varsha Meza [facility] RANDOM [facility] SODIUM, URINE RANDOM 2022-11-27 15:58:00 Irene-Varsha Victor [facility] HB ECG ROUTINE & RHYTHM 2022-11-27 14:21:43 Dwain Junior [facility] HB ECG ROUTINE & RHYTHM 2022-11-27 14:21:43 Dwain Junior [facility] LACTIC ACID WHOLE BLOOD 2022-11-27 14:01:00 Dwain Junior [facility] LACTIC ACID WHOLE BLOOD 2022-11-27 14:01:00 Dwain Junior [facility] BLOOD CULTURE SCREEN 2022-11-27 14:00:00 [facility] PHOSPHORUS 2022-11-27 14:00:00 Dwain [facility] MAGNESIUM 2022-11-27 14:00:00 Dwain [facility] TROPONIN I 2022-11-27 14:00:00 [facility] COMP. METABOLIC PANEL 2022-11-27 14:00:00 Dwain Junior Un [facility] ([id number]) [facility] CBC WITH DIFF 2022-11-27 14:00:00 Dwain [facility] BLOOD CULTURE SCREEN 2022-11-27 14:00:00 Dwain Junior [facility] PHOSPHORUS 2022-11-27 14:00:00 MorDwain valerio [facility] ty [facility] MAGNESIUM 2022-11-27 14:00:00 MorDwain valerio [facility] TROPONIN I 2022-11-27 14:00:00 Dwain [facility] COMP. METABOLIC PANEL 2022-11-27 14:00:00 Dwain Junior Un [facility] ([id number]) [facility] CBC WITH DIFF 2022-11-27 14:00:00 [facility] XR CHEST 1 VW 2022-11-27 13:42:00 Dw[facility] XR CHEST 1 VW 2022-11-27 13:42:00 Dwain [facility] HOSPITAL ADMISSION 2022-11-27 05:01:00 Doctor Unassigned, [facility] HOSPITAL ADMISSION 2022-11-27 05:01:00 Doctor Unassigned, [facility] MAGNESIUM 2022-11-22 09:24:00 Myke [facility] BASIC METABOLIC PANEL (NA, 2022-11-22 09:24:00 Myke [facility] K, CL, CO2, GLUCOSE, BUN, Medica l Branch CREATININE, CA) CBC WITH DIFF 2022-11-22 09:24:00 Myke [facility] MAGNESIUM 2022-11-21 05:09:00 Micki Ramon [facility] BASIC METABOLIC PANEL (NA, 2022-11-21 05:09:00 [facility] K, CL, CO2, GLUCOSE, BUN, Medica l Branch CREATININE, CA) CBC WITH DIFF 2022-11-21 05:09:00 Tristen [facility] AC PANEL 21 + LACTIC ACID 2022-11-21 05:07:00 Dana Cox [facility] LACTIC ACID WHOLE BLOOD 2022-11-20 14:51:00 Wilfred Stringer [facility] LACTIC ACID WHOLE BLOOD 2022-11-20 11:33:00 Wilfred Stringer [facility] ALBUMIN 2022-11-20 09:45:00 Tristen [facility] MAGNESIUM 2022-11-20 09:45:00 [facility] CORT[facility] AM 2022-11-20 09:45:00 Myke [facility] THYROID STIMULATING 2022-11-20 09:45:00 [facility] BASIC METABOLIC PANEL (NA, 2022-11-20 09:45:00 Wilfred Stringer [facility] K, CL, CO2, GLUCOSE, BUN, Medica l Branch CREATININE, CA) CBC WITH DIFF 2022-11-20 09:45:00 Wilfred Stringer [facility] FREE T4 2022-11-20 00:40:00 Tristen [facility] BASIC METABOLIC PANEL (NA, 2022-11-20 00:40:00 Wilfred Stringer [facility] K, CL, CO2, GLUCOSE, BUN, Medica l [place] CREATININE, CA) OSMOLALITY URINE 2022-11-19 23:34:00 Tristen [facility] CREATININE, URINE RANDOM 2022-11-19 23:34:00 Wilfred Stringer [facility] SODIUM, URINE RANDOM 2022-11-19 23:34:00 Wilfred Stringer [facility] HB ECG ROUTINE & RHYTHM 2022-11-19 23:15:08 Wilfred Stringer [facility] BASIC METABOLIC PANEL (NA, 2022-11-19 20:05:00 Wilfred Stringer [facility] K, CL, CO2, GLUCOSE, BUN, Medica l Branch CREATININE, CA) MAGNESIUM 2022-11-19 15:58:00 Constantin Perez [facility] COMP. METABOLIC PANEL 2022-11-19 15:58:00 Constantin Perez [facility] ([id number]) Medical Branch ETHANOL 2022-11-19 15:58:00 Constantin Perez [facility] CBC WITH DIFF 2022-11-19 15:58:00 Constantin Perez [facility] COVID-19 (ID NOW RAPID 2022-11-19 15:25:00 Constantin Perez [facility] TESTING) Medical Branch LAB ONLY COVID 2022-11-19 15:25:00 Constantin Perez [facility] INTERPRETATION [facility] MAGNESIUM 2022-11-06 09:44:00 Shanell José [facility] BASIC METABOLIC PANEL (NA, 2022-11-06 09:44:00 Shanell José [facility] K, CL, CO2, GLUCOSE, BUN, Medica l Branch CREATININE, CA) CBC WITH DIFF 2022-11-06 09:44:00 Shanell José [facility] CORTISOL AM 2022-11-05 13:40:00 Shanell José [facility] BASIC METABOLIC PANEL (NA, 2022-11-05 09:49:00 Shanell José [facility] [facility] [place] K, CL, CO2, GLUCOSE, BUN, Medica l Branch CREATININE, CA) CBC WITH DIFF 2022-11-05 09:49:00 Shanell José [facility] BASIC METABOLIC PANEL (NA, 2022-11-05 03:00:00 Shanell José [facility] [place] K, CL, CO2, GLUCOSE, BUN, Medica l Branch CREATININE, CA) SODIUM 2022-11-04 18:26:00 Shanell José [facility] BASIC METABOLIC PANEL (NA, 2022-11-04 18:26:00 Micki Ram[facility] [place] K, CL, CO2, GLUCOSE, BUN, Medica l Branch CREATININE, CA) OSMOLALITY, SERUM OR 2022-11-04 05:56:00 Shanell [facility] MAGNESIUM 2022-11-04 05:55:00 Shanell José [facility] BASIC METABOLIC PANEL (NA, 2022-11-04 05:55:00 [facility], CL, CO2, GLUCOSE, BUN, Medica l Branch CREATININE, CA) CBC WITH DIFF 2022-11-04 05:55:00 Shanell José [facility] POTASSIUM URINE 2022-11-04 05:30:00 Shanell José [facility] SODIUM URINE 2022-11-04 05:30:00 Shanell José [facility] VITAMIN B12, LEVEL 2022-11-03 21:13:00 Shanell José [facility] VITAMIN D, 25-OH 2022-11-03 21:12:00 Shanell José [facility] MAGNESIUM 2022-11-03 10:47:00 Shanell José [facility] hospital BASIC METABOLIC PANEL (NA, 2022-11-03 10:47:00 [facility]ell [facility] K, CL, CO2, GLUCOSE, BUN, Medica l Branch CREATININE, CA) CBC WITH DIFF 2022-11-03 10:47:00 Shanell José [facility] OSMOLALITY URINE 2022-11-03 05:34:00 Shanell José [facility] URINALYSIS 2022-11-03 05:34:00 Shanell José [facility] hospital URINE CULTURE 2022-11-03 05:34:00 Shanell José [facility] CREATININE, URINE RANDOM 2022-11-03 05:34:00 Shanell José [facility] UREA NITROGEN, URINE 2022-11-03 05:34:00 Shanell José [facility] RANDOM [facility] SODIUM 2022-11-03 04:19:00 Shanell José [facility] acute hospital BLOOD CULTURE SCREEN 2022-11-03 04:18:00 Shanell [facility] US RETROPERITONEAL LIMITED 2022-11-02 23:30:00 Shanell José U [facility] LACTIC ACID WHOLE BLOOD 2022-11-02 22:56:00 Shanell José [facility] CLOSTRIDIUM DIFFICILE 2022-11-02 21:21:[address] [facility] FECAL PATHOGENS BY PCR 2022-11-02 21:21:00 Shanell [facility] BLOOD CULTURE SCREEN 2022-11-02 20:59:00 Shanell [facility] MAGNESIUM 2022-11-02 20:57:00 Shanell José [facility] acute hospital COMP. METABOLIC PANEL 2022-11-02 20:57:00 Shanell José [facility] ([id number]) [facility] CBC WITHOUT DIFF 2022-11-02 20:57:00 Shanell José [facility] PHOSPHORUS 2022-11-02 18:28:00 Shanell José [facility] acute hospital FREE T4 2022-11-02 18:28:00 Shanell José [facility] hospital THYROID STIMULATING 2022-11-02 18:28:00 Shanell José [facility] HORMONE [facility] HEPATIC FUNCTION PANEL 2022-11-02 18:28:00 Shanell [facility] ([id number]) (ALB,T.PRO,BILI Medical [place] T,BU/BC,ALT,AST,ALK PHOS) LACTIC ACID WHOLE BLOOD 2022-11-02 17:29:00 Danay Gordillo [facility] HB ECG ROUTINE & RHYTHM 2022-11-02 13:58:35 Dan[facility] STRIP Medical Branch LIPASE 2022-11-02 13:16:00 Danay Gordillo [facility] MAGNESIUM 2022-11-02 13:16:00 Danay Gordillo [facility] TROPONIN I 2022-11-02 13:16:00 Danay Gordillo [facility] COMP. METABOLIC PANEL 2022-11-02 13:16:00 Danay Gordillo [facility] ([id number]) [facility] CBC WITH DIFF 2022-11-02 13:16:00 Danay Gordillo [facility] GALV ONLY - INFLUENZA A B 2022-11-02 13:16:00 Danay [facility] RSV PCR [facility] Branch COVID-19 (ID NOW RAPID 2022-11-02 13:16:00 Danay Gordillo [facility] TESTING) Medical Branch LAB ONLY COVID 2022-11-02 13:16:00 Danay Gordillo [facility] INTERPRETATION [facility] HOSPITAL ADMISSION 2022-11-02 06:01:00 Doctor Unassotilia, [facility] [place] [facility] CT ABDOMEN PELVIS W 2022-10-20 03:22:00 Alvarez Austin [facility] CONTRAST [facility] LIPASE 2022-10-20 01:43:00 Alvarez [facility] MAGNESIUM 2022-10-20 01:43:00 Alvarez [facility] COMP. METABOLIC PANEL 2022-10-20 01:43:00 Alvarez Austin [facility] ([id number]) [facility] CBC WITH DIFF 2022-10-20 01:43:00 Alvarez [facility] CONSENT/REFUSAL FOR 2022-10-20 01:10:04 Doctor Unassigned, [facility] DIAGNOSIS AND TREATMENT [place] Medical Branch PHOSPHORUS 2022-05-21 09:31:00 Je Forrest [facility] MAGNESIUM 2022-05-21 09:31:00 Adriane [facility] BASIC METABOLIC PANEL (NA, 2022-05-21 09:31:00 Adriane, [facility] K, CL, CO2, GLUCOSE, BUN, Medica l Branch CREATININE, CA) CBC WITH DIFF 2022-05-21 09:31:00 Adriane [facility] INTACT PTH CALCIUM GROUP 2022-05-20 18:29:00 Douglas Arizmendi [facility] RENAL ARTERY DUPLEX - BY 2022-05-20 17:58:00 Douglas Arizmendi [facility] VASCULAR LAB [facility] LACTIC ACID WHOLE BLOOD 2022-05-20 10:43:00 Blanca christophe [facility] CREATINE KINASE 2022-05-20 08:36:00 Blanca [facility] URIC ACID 2022-05-20 08:36:00 Blanca [facility] MAGNESIUM 2022-05-20 08:36:00 [facility] FERRITIN SERUM 2022-05-20 08:36:00 Blanca christophe [facility] acute [facility] CORTISOL AM 2022-05-20 08:36:00 Blanca [facility] OSMOLALITY, SERUM OR 2022-05-20 08:36:00 Blanca christophe [facility] PLASMA [facility] OSMOLALITY URINE 2022-05-20 08:36:00 Blanca [facility] acute hospital AMMONIA, PLASMA 2022-05-20 08:36:00 Blanca [facility] VITAMIN B12, LEVEL 2022-05-20 08:36:00 Eros Rios [facility] THYROID STIMULATING 2022-05-20 08:36:00 Eros Rios [facility] HORMONE [facility] COMP. METABOLIC PANEL 2022-05-20 08:36:00 Eros Rios [facility] ([id number]) Medical [place] LIPID PANEL ([id number])(TOTAL 2022-05-20 08:36:00 Eros Rios [facility] CHOLESTEROL, [facility] TRIGLYCERIDES, HDL) IRON PANEL 2022-05-20 08:36:00 Blanca christophe [facility] acute hospital ETHANOL 2022-05-20 08:36:00 Eros Rios [facility] acute hospital URINE DRUG (IMMUNOASSAY) - 2022-05-20 08:36:00 [facility]CREEN [facility] SEDIMENT[facility] RATE 2022-05-20 08:36:00 [facility] WITH [facility]FF 2022-05-20 08:36:00 Eros Rios General acute hospital GLYCOSYLATED HEMOGLOBIN 2022-05-20 08:36:00 Eros Rios [facility] (A1C) [facility] PROTHROMBIN TIME / INR 2022-05-20 08:36:00 Eros Rios [facility] URINALYSIS 2022-05-20 08:36:00 Eros Rios [facility] acute hospital OCCULT (GUAIAC) BLOOD 2022-05-20 08:36:00 Eros Rios [facility] URINE CULTURE 2022-05-20 08:36:00 Eros Rios [facility] CLOSTRIDIUM DIFFICILE 2022-05-20 08:36:[address] [facility] VITAMIN D, 25-OH 2022-05-20 08:36:00 Eros Rios [facility] UREA NITROGEN, URINE 2022-05-20 08:36:00 Eros Rios [facility] SODIUM, URINE RANDOM 2022-05-20 08:36:00 Eros Rios [facility] PROTEIN CREAT RATIO URINE 2022-05-20 08:36:00 [facility] + LACTIC ACID 2022-05-20 08:36:00 Eros Rios [facility] FECAL PATHOGENS BY PCR 2022-05-20 08:36:00 Eros Rios [facility] CT ABDOMEN PELVIS W 2022-05-20 03:23:04 Joel Baez [facility] CONTRAST [facility] COVID-19 (ID NOW RAPID 2022-05-20 01:44:00 Joel Baez [facility] TESTING) Medical Branch LAB ONLY COVID 2022-05-20 01:44:00 Joel Baez [facility] INTERPRETATION [facility] LACTIC ACID WHOLE BLOOD 2022-05-20 01:42:00 [facility] [place] LIPASE 2022-05-20 01:30:00 Joel Baez [facility] COMP. METABOLIC PANEL 2022-05-20 01:30:00 Joel Baez [facility] ([id number]) [facility] CBC WITH DIFF 2022-05-20 01:30:00 Joel Baez [facility] NOTICE OF PRIVACY 2022-05-19 23:54:00 Doctor Unassigned, [facility] PRACTICES [place] [facility] CONSENT/REFUSAL FOR 2022-05-19 23:53:24 Doctor Unassigned, [facility] DIAGNOSIS AND TREATMENT [place] [facility] COMP. METABOLIC PANEL 2022-04-10 03:54:00 Alvarez Austin Un [facility] ([id number]) [facility] CBC WITH DIFF 2022-04-10 03:49:00 Alvarez [facility] LIPASE 2022-04-10 03:07:00 Alvarez [facility] XR CHEST 2 VW 2022-04-10 02:59:18 Alvarez [facility] COVID-19 (ID NOW RAPID 2022-04-10 02:43:00 Alvarez Austin [facility] TESTING) Medical Branch PHOSPHORUS 2022-04-08 10:26:00 Shelia Lemus [facility] MAGNESIUM 2022-04-08 10:26:00 Kurt [facility] BASIC METABOLIC PANEL (NA, 2022-04-08 10:26:00 Shelia Lemus [facility] K, CL, CO2, GLUCOSE, BUN, Medica l Branch CREATININE, CA) CBC WITH DIFF 2022-04-08 10:26:00 Lemus, Shelia [facility] acute hospital PHOSPHORUS 2022-04-07 09:45:00 [facility] MAGNESIUM 2022-04-07 09:45:00 [facility] BASIC METABOLIC PANEL (NA, 2022-04-07 09:45:00 Albrust Don [facility] [employer] [place] K, CL, CO2, GLUCOSE, BUN, Medica l Branch CREATININE, CA) LACTIC ACID WHOLE BLOOD 2022-04-06 09:05:00 [facility]UM 2022-04-06 09:04:00 Kurt [facility] acute hospital BASIC METABOLIC PANEL (NA, 2022-04-06 09:04:00 Rolf Lemus [facility] K, CL, CO2, GLUCOSE, BUN, Medica l Branch CREATININE, CA) CBC WITH DIFF 2022-04-06 09:04:00 Kurt [facility] acute hospital BASIC METABOLIC PANEL (NA, 2022-04-05 08:12:00 Agatha No[facility] [place] K, CL, CO2, GLUCOSE, BUN, Medica l Branch CREATININE, CA) ACUTE CARE VENOUS BLOOD 2022-04-05 08:12:00 Octavio Macario [facility] CBC WITH DIFF 2022-04-05 08:12:00 Shaista [facility] BASIC METABOLIC PANEL (NA, 2022-04-04 09:03:[address] [facility] K, CL, CO2, GLUCOSE, BUN, Medica l Branch CREATININE, CA) US RETROPERITONEAL LIMITED 2022-04-03 23:10:49 Octavio Macario [facility] ACUTE CARE VENOUS BLOOD 2022-04-03 18:33:00 Octavio Macario [facility] OSMOLALITY URINE 2022-04-03 17:59:[address] [facility] BASIC METABOLIC PANEL (NA, 2022-04-03 17:59:[address] K, CL, CO2, GLUCOSE, BUN, Medica l Branch CREATININE, CA) CREATININE, URINE RANDOM 2022-04-03 17:59:00 Octavio Macario [facility] POTASSIUM, URINE RANDOM 2022-04-03 17:59:00 Amirah [facility] SODIUM, URINE RANDOM 2022-04-03 17:59:00 Amirah [facility] MAGNESIUM 2022-04-03 09:29:00 Amirah [facility] OSMOLALITY, SERUM OR 2022-04-03 09:29:00 Amirah Octavio [facility] PLASMA [facility] BASIC METABOLIC PANEL (NA, 2022-04-03 09:29:00 Juventino Thomas [facility] K, CL, CO2, GLUCOSE, BUN, Medica l Branch CREATININE, CA) CBC WITH DIFF 2022-04-03 09:29:00 William [facility] CLOSTRIDIUM DIFFICILE 2022-04-03 03:44:00 William Juventino [facility] TOXIN [facility] LACTIC ACID WHOLE BLOOD 2022-04-03 03:38:00 William [facility] LACTIC ACID WHOLE BLOOD 2022-04-03 00:07:00 William [facility] URINE CULTURE 2022-04-02 22:39:00 Aguila [facility] CT ABDOMEN PELVIS WO 2022-04-02 21:07:00 Rekha Sheehan [facility] CONTRAST [facility] LIPASE 2022-04-02 20:00:00 Aguila [facility] TROPONIN I 2022-04-02 20:00:00 Aguila [facility] HEPATIC FUNCTION PANEL 2022-04-02 20:00:00 Rekha Sheehan [facility] ([id number]) (ALB,T.PRO,BILI Medical Branch T,BU/BC,ALT,AST,ALK PHOS) BASIC METABOLIC PANEL (NA, 2022-04-02 20:00:00 Rekha Sheehan [facility] K, CL, CO2, GLUCOSE, BUN, Medica l [place] CREATININE, CA) URINALYSIS 2022-04-02 20:00:00 Rekha Sheehan [facility] CBC WITH DIFF 2022-04-02 18:20:00 Aguila [facility] COVID-19 (ID NOW RAPID 2022-04-02 18:20:00 Rekha Sheehan [facility] TESTING) Medical Branch LAB ONLY COVID 2022-04-02 18:20:00 Rekha Sheehan [facility] INTERPRETATION [facility] XR CHEST 2 VW 2022-04-02 17:29:13 Aguila [facility] HB ECG ROUTINE & RHYTHM 2022-04-02 16:32:43 Rekha Sheehan [facility] STRIP [facility] CONSENT/REFUSAL FOR 2022-04-02 16:29:46 Doctor Unassigned, [facility] DIAGNOSIS AND TREATMENT [place] Medical [facility] BASIC METABOLIC PANEL 2022-03-07 05:51:00 Shiela [facility] HEPATIC FUNCTION PANEL 2022-03-07 05:51:00 [facility] CBC W/PLT COUNT & AUTO 2022-03-07 05:51:[address] [facility] CBC W/PLT COUNT & AUTO 2022-03-07 05:51:00 [facility] DIFFERENTIAL [place] US RENAL COMPLETE 2022-03-06 18:23:00 Shiela [facility] SARS-COV2/RT-PCR ([facility] & 2022-03-06 17:36:00 Shiela [facility] REF LABS) Center TSH/FREE T4 IF INDICATED 2022-03-06 14:18:00 Aryan Tello [facility] T4, FREE 2022-03-06 14:18:00 Aryan Tello [facility] ED ECG INTERPRETATION 2022-03-06 13:48:12 Aryan Tello [facility] XR CHEST 1 VIEW PORTABLE / 2022-03-06 13:42:00 Aryan Tello [facility] B-TYPE NATRIURETIC FACTOR 2022-03-06 13:23:00 Aryan Tello [facility] (BNP) [facility] CBC W/PLT COUNT & AUTO 2022-03-06 13:23:[address] [facility] Medical DIFFERENTIAL [facility] COMPREHENSIVE METABOLIC 2022-03-06 13:23:00 Aryan Tello [facility] PANEL [facility] HIGH SENSITIVITY TROPONIN 2022-03-06 13:23:00 Aryan Tello I [facility] MAGNESIUM 2022-03-06 13:23:00 Aryan Tello [facility] PHOSPHORUS 2022-03-06 13:23:00 [facility] LACTIC ACID, VENOUS 2022-03-06 13:23:00 [facility] CREATINE KINASE (CK) 2022-03-06 13:23:00 [facility] CBC W/PLT COUNT & AUTO 2022-03-06 13:23:[address] [facility] Medical DIFFERENTIAL [facility] ECG 12-LEAD 2022-03-06 12:12:56 Unknown, Hl7 Doctor [facility] ECG 12-LEAD 2022-03-06 12:12:56 Unknown, Hl7 Doctor [facility] EKG-SCANNED 2022-03-06 00:00:00 Provider, [facility] BASIC METABOLIC PANEL 2022-02-20 05:10:00 Rufino Lazaro [facility] CBC (WITHOUT DIFFERENTIAL) 2022-02-20 05:10:[address] [facility] MAGNESIUM 2022-02-20 05:10:00 Rufino Lazaro h PHOSPHORUS 2022-02-20 05:10:00 Rufino Lazaro CBC (WITHOUT DIFFERENTIAL) 2022-02-20 05:10:[address] [facility] BASIC METABOLIC PANEL 2022-02-20 05:10:00 Rufino Lazaro [facility] MAGNESIUM 2022-02-20 05:10:00 Rufino Lazaro PHOSPHORUS 2022-02-20 05:10:00 Rufino Lazaro INFUSION PUMP 2022-02-19 19:03:50 Rufino Lazaro INFUSION PUMP 2022-02-19 19:03:50 Rufnio Lazaro CBC/DIFF 2022-02-19 06:35:00 Fannie Blake alth PHOSPHORUS 2022-02-19 06:35:00 Fannie Blake alth COMPREHENSIVE METABOLIC 2022-02-19 06:35:00 [facility] PANEL CBC 2022-02-19 06:35:00 Fannie Blake alth COMPREHENSIVE METABOLIC 2022-02-19 06:35:00 Fannie Blake [facility] PANEL CBC/DIFF 2022-02-19 06:35:00 Fannie Blake alth PHOSPHORUS 2022-02-19 06:35:00 Fannie Blake alth CBC 2022-02-19 06:35:00 Fannie Blake alth URINALYSIS W/REFLEX TO 2022-02-19 00:34:00 Fannie Blake [facility] URINE CULTURE URINALYSIS 2022-02-19 00:34:00 [facility]LE[facility] 2022-02-19 00:34:00 Chadd Palacios [facility] KIT URINALYSIS W/REFLEX TO 2022-02-19 00:34:00 Fannie Blake [facility] URINE CULTURE URINALYSIS 2022-02-19 00:34:00 Chadd Palacios [facility] URINE CULTURE COLLECTION 2022-02-19 00:34:00 Chadd Palacios [facility] KIT CORONAVIRUS, COVID-19, OLENA 2022-02-18 19:00:[address] [facility] SARS-COV-2, FLU A/B, RSV 2022-02-18 19:00:00 Chadd Palacios [facility] SARS-COV-2, FLU A/B, RSV 2022-02-18 19:00:00 Chadd Palacios [facility] CORONAVIRUS, COVID-19, OLENA 2022-02-18 19:00:00 Chadd Palacios [facility] XRAY CHEST 1 VIEW 2022-02-18 15:23:00 Yordy Sherrywandy Marisol Lynne [facility] XRAY CHEST 1 VIEW 2022-02-18 15:23:00 Roz Scales Marisol Maged [facility] CONSULT CLINICAL CASE 2022-02-18 14:50:50 Roz Scales [facility] MANAGEMENT (RN/SW) CONSULT CLINICAL CASE 2022-02-18 14:50:50 Roz Scales [facility] MANAGEMENT (RN/SW) BASIC METABOLIC PANEL 2022-02-18 14:16:00 Albab [facility] CBC/DIFF 2022-02-18 14:16:00 [facility] CREATINE KINASE (CK) 2022-02-18 14:16:00 Albab [facility] MAGNESIUM 2022-02-18 14:16:00 [facility] 2022-02-18 14:16:00 Albab, [facility] Healt h CBC 2022-02-18 14:16:00 Albab, [facility] CBC/DIFF 2022-02-18 14:16:00 Albab, [facility]alt h BASIC METABOLIC PANEL 2022-02-18 14:16:00 Albab, [facility] MAGNESIUM 2022-02-18 14:16:00 Albab, [facility]alt h PHOSPHORUS 2022-02-18 14:16:00 Albab, [facility] h CREATINE KINASE (CK) 2022-02-18 14:16:00 Albab, [facility] CBC 2022-02-18 14:16:00 Albab, [facility]alt h BASIC METABOLIC PANEL 2022-02-11 03:34:00 Daily Islas [facility] CBC (WITHOUT DIFFERENTIAL) 2022-02-11 03:34:00 [place] Teresa [facility] MAGNESIUM 2022-02-11 03:34:00 Teresa Alves [facility] PHOSPHORUS 2022-02-11 03:34:00 Cucpetar Teresa [facility] th BASIC METABOLIC PANEL 2022-02-11 03:34:00 YinDaily [facility] MAGNESIUM 2022-02-11 03:34:00 [place] [facility] PHOSPHORUS 2022-02-11 03:34:00 CuchapinTeresa [facility] th CBC (WITHOUT DIFFERENTIAL) 2022-02-11 03:34:00 [place]resa [facility] BASIC METABOLIC PANEL 2022-02-10 03:39:00 YinDaily [facility] CBC/DIFF 2022-02-10 03:39:00 YinDaily Healt h FREE T4 2022-02-10 03:39:00 [place] [facility] THYROID STIMULATING 2022-02-10 03:39:00 [facility] HORMONE (TSH) CBC 2022-02-10 03:39:00 YinDaily [facility]alt [facility] CBC/DIFF 2022-02-10 03:39:00 YinDaily [facility] BASIC METABOLIC PANEL 2022-02-10 03:39:00 YinDaily [facility] CBC 2022-02-10 03:39:00 [facility]Daily [facility] 2022-02-10 03:39:00 [facility] HORMONE (TSH) FREE T4 2022-02-10 03:39:00 [place] [facility] BASIC METABOLIC PANEL 2022-02-09 04:38:00 Daily Isals [facility] CBC/DIFF 2022-02-09 04:38:00 YinDaily Healt h CBC 2022-02-09 04:38:00 YinDaily [facility] CBC/DIFF 2022-02-09 04:38:00 YinDaily [facility] BASIC METABOLIC PANEL 2022-02-09 04:38:00 YinDaily [facility] CBC 2022-02-09 04:38:00 YinDaily [facility] CORTISOL, TOTAL 2022-02-08 11:37:00 Jian Schmitt [facility] ealth CORTISOL, TOTAL 2022-02-08 11:37:00 Jian Schmitt [facility] ealth GLUCOSE POC 2022-02-08 08:07:00 Yin, Daily [facility]ne [facility]alt [facility] GLUCOSE POC 2022-02-08 08:07:00 Antonieta Daily Lynne [facility] h CBC (WITHOUT DIFFERENTIAL) 2022-02-08 04:00:00 Jian Schmitt [facility] MAGNESIUM 2022-02-08 04:00:00 Jian Schmitt [facility] ealth PHOSPHORUS 2022-02-08 04:00:00 Jian Schmitt [facility] ealth PT/INR 2022-02-08 04:00:00 Jian Schmitt [facility] ealth COMPREHENSIVE METABOLIC 2022-02-08 04:00:00 Jian Schmitt [facility] PANEL CBC (WITHOUT DIFFERENTIAL) 2022-02-08 04:00:00 Jian Schmitt [facility] METABOLIC 2022-02-08 04:00:00 Jian Schmitt [facility] PANEL PHOSPHORUS 2022-02-08 04:00:00 Jian Schmitt [facility] ealth MAGNESIUM 2022-02-08 04:00:00 Jian Schmitt [facility] ealth PT/INR 2022-02-08 04:00:00 Jian Schmitt [facility] ealth ELECTROLYTES, URINE 2022-02-07 18:06:00 Jyoti Carrillo [facility] OSMOLALITY, URINE 2022-02-07 18:06:00 Jyoti Carrillo ealth URINALYSIS W/REFLEX TO 2022-02-07 18:06:00 Areli Arciniega [facility] URINE CULTURE URINALYSIS 2022-02-07 18:06:00 Areli Arciniega alth URINE CULTURE COLLECTION 2022-02-07 18:06:00 Areli Arciniega [facility] KIT URINALYSIS W/REFLEX TO 2022-02-07 18:06:00 Areli Arciniega [facility] URINE CULTURE URINALYSIS 2022-02-07 18:06:00 Areli Arciniega alth URINE CULTURE COLLECTION 2022-02-07 18:06:00 Areli Arciniega [facility] KIT ELECTROLYTES, URINE 2022-02-07 18:06:00 Jyoti Carrillo [facility] OSMOLALITY, URINE 2022-02-07 18:06:00 Jyoti Carrillo ealth CORONAVIRUS, COVID-19, OLENA 2022-02-07 18:05:00 Jyoti Carrillo [facility] SARS-COV-2, FLU A/B, RSV 2022-02-07 18:05:00 Jyoti Carrillo [facility] SARS-COV-2, FLU A/B, RSV 2022-02-07 18:05:00 Jyoti Carrillo [facility] CORONAVIRUS, COVID-19, OLENA 2022-02-07 18:05:00 Jyoti Carrillo [facility] NUTRITION CONSULT 2022-02-07 17:43:36 Jian Schmitt [facility] ASSESSMENT NUTRITION CONSULT 2022-02-07 17:43:36 Jian Schmitt [facility] ASSESSMENT BASIC METABOLIC PANEL 2022-02-07 17:18:00 Jyoti Carrillo Health BASIC METABOLIC PANEL 2022-02-07 17:18:00 Jyoti Carrillo [facility] LACTIC ACID 2022-02-07 14:04:00 Areli Arciniega alth LACTIC ACID 2022-02-07 14:04:00 Areli Arciniega alth BASIC METABOLIC PANEL 2022-02-07 14:03:00 Areli Arciniega [facility] Health CBC/DIFF 2022-02-07 14:03:00 Areli Arciniega alth LIPASE 2022-02-07 14:03:00 Areli Arciniega alth LIVER PROFILE 2022-02-07 14:03:00 Areli Arciniega alth MAGNESIUM 2022-02-07 14:03:00 Areli Arciniega alth PHOSPHORUS 2022-02-07 14:03:00 Areli Arciniega alth TROPONIN I 2022-02-07 14:03:00 Areli Arciniega alth CBC 2022-02-07 14:03:00 Areli Arciniega alth CBC/DIFF 2022-02-07 14:03:00 Areli [...] 12 LEAD EKG 2022-01-21 15:46:10 Ori Goldberg [facility] CBC/DIFF 2022-01-21 04:11:00 Lindsey Tien P [facility] MAGNESIUM 2022-01-21 04:11:00 Lindsey, Tien P [facility] PHOSPHORUS 2022-01-21 04:11:00 Lindsey, Tien P [facility] BASIC METABOLIC PANEL 2022-01-21 04:11:00 Ori Goldberg [facility] CBC 2022-01-21 04:11:00 Lindsey Tien P [facility] CBC/DIFF 2022-01-20 04:37:00 Lindsey Tien P [facility] MAGNESIUM 2022-01-20 04:37:00 Lindsey, Tien P [facility] PHOSPHORUS 2022-01-20 04:37:00 Lindsey, Tien P Lynne [facility] BASIC METABOLIC PANEL 2022-01-20 04:37:00 Lindsey, [facility] CBC 2022-01-20 04:37:00 Lindsey, Tien P [facility]al [facility] MAGNESIUM 2022-01-19 18:09:00 Lindsey, Tien P [facility] Heal PHOSPHORUS 2022-01-19 18:09:00 Lindsey, Tien P [facility] BASIC METABOLIC PANEL 2022-01-19 18:09:00 Lindsey, Tien P [facility] CORTISOL, TOTAL 2022-01-19 18:09:00 Karin Bassett [facility] URINALYSIS W/REFLEX TO 2022-01-19 17:22:00 Lindsey Tien Esther [facility] URINE CULTURE URINALYSIS 2022-01-19 17:22:00 Lindsey, Tien Esther [facility] URINE CULTURE COLLECTION 2022-01-19 17:22:00 LindseyTien [facility] KIT COMPUTED TOMOGRAPHY 2022-01-19 13:29:00 [facility]BD[facility] AND PELVIS WITHOUT CONTRAST CBC/DIFF 2022-01-19 04:44:00 LindseyNoeh Esther [facility] CBC 2022-01-19 04:44:00 [facility] Tien Esther [facility] DIFFERENTIAL, MANUAL (NO 2022-01-19 04:44:00 LindseyTien [facility] MORPHOLOGY)-WA BASIC METABOLIC PANEL 2022-01-18 17:15:00 LindseyNoeh [facility] CBC/DIFF 2022-01-18 04:46:00 Noe Lucash Esther [facility] MAGNESIUM 2022-01-18 04:46:00 LindseyNoeh P [facility] PHOSPHORUS 2022-01-18 04:46:00 [facility] BASIC METABOLIC PANEL 2022-01-18 04:46:00 Ori Goldberg [facility] CBC 2022-01-18 04:46:00 [facility] HIV AG/AB COMBO ROUTINE 2022-01-18 04:46:00 Karin Bassett [facility] SCREENING ENTERIC PATHOGENS NUCLEIC 2022-01-18 03:25:00 Karin Bassett [facility] ACID TEST BASIC METABOLIC PANEL 2022-01-18 00:29:00 Ori Goldberg [facility] BASIC METABOLIC PANEL 2022-01-17 17:07:00 [facility] Tien P [facility] BASIC METABOLIC PANEL 2022-01-17 13:15:00 [facility] CALPROTECTIN FECAL 2022-01-17 12:38:00 [facility] Hospital[facility] Esther rao FECAL LEUKOCYTES 2022-01-17 12:38:00 [facility] T-TRANSGLUTAMINASE IGA 2022-01-17 12:22:00 Tien Lucas is Health BASIC METABOLIC PANEL 2022-01-17 08:51:00 Tien Lucasi s Health BASIC METABOLIC PANEL 2022-01-17 04:47:00 Tien Lucas [facility] CBC/DIFF 2022-01-17 04:47:00 Tien Lucas [facility] MAGNESIUM 2022-01-17 04:47:00 Tien Luacs [facility] PHOSPHORUS 2022-01-17 04:47:00 Tien Lucas [facility] CBC 2022-01-17 04:47:00 Tien Lucas [facility] BASIC METABOLIC PANEL 2022-01-17 00:08:00 Tien Lucas [facility] 12 LEAD EKG 2022-01-16 21:23:25 Tien Lucas [facility] BASIC METABOLIC PANEL 2022-01-16 21:08:00 [facility]ien [facility] XRAY CHEST 2 VIEWS 2022-01-16 19:56:00 Tien Lucas jalen IP CONSULT TO PHYSICAL 2022-01-16 19:17:17 Tien Lucas is Health THERAPY CONSULT CLINICAL CASE 2022-01-16 19:17:17 Tien Lucas [facility] MANAGEMENT (RN/SW) SEQUENTIAL COMPRESSION 2022-01-16 19:17:17 [facility]ien [facility] PUMP SEQUENTIAL COMPRESSION 2022-01-16 19:17:17 Tien Lucas [facility] Health PUMP SODIUM, URINE, RANDOM 2022-01-16 16:00:00 Kevin Nieves [facility] CREATININE, URINE, RANDOM 2022-01-16 16:00:00 Kevin Nieves [facility] OSMOLALITY, URINE 2022-01-16 16:00:00 Kevin Nieves [facility] SARS-COV-2, FLU A/B, RSV 2022-01-16 15:20:00 Kevin Nieves [facility] CORONAVIRUS, COVID-19, OLENA 2022-01-16 15:20:00 Kevin Nieves [facility] FOLIC ACID 2022-01-16 14:13:00 Kevin Nieves ealth CREATININE POC 2022-01-16 13:55:00 Raymon Martin Healt h BMP POC 2022-01-16 13:46:00 Raymon Martin Healt h CBC/DIFF 2022-01-16 12:12:00 Raymon Martin Healt h CBC 2022-01-16 12:12:00 Raymon Martin Healt h BASIC METABOLIC PANEL 2022-01-16 12:11:00 Sadiq Vargas [facility] MAGNESIUM 2022-01-16 12:11:00 Sadiq Vargas a lt VITAMIN B12 2022-01-16 12:11:00 Kevin Nieves ealth OSMOLALITY,SERUM 2022-01-16 12:11:00 Kevin Nieves [facility] INFUSION PUMP 2022-01-11 09:21:05 Helene Anderson [facility] GLUCOSE POC 2022-01-11 07:54:00 Helene Anderson [facility] BASIC METABOLIC PANEL 2022-01-11 04:07:00 Merissa Richards [facility] MAGNESIUM 2022-01-11 04:07:00 Merissa Richards Healt h PHOSPHORUS 2022-01-11 04:07:00 Merissa [facility] CBC/DIFF 2022-01-11 04:06:00 Merissa Richards [facility] IRON PROFILE 2022-01-11 04:06:00 Merissa Richards [facility] FOLIC ACID 2022-01-11 04:06:00 Merissa Richards Healt h CBC 2022-01-11 04:06:00 [facility] 2022-01-10 18:16:00 Helene Anderson Heal th URINALYSIS 2022-01-10 16:10:00 Merissa Richards Healt h URINALYSIS 2022-01-10 16:10:00 Merissa Richards Healt h SARS-COV-2, FLU A/B, RSV 2022-01-10 15:54:00 Merissa Richards [facility] CORONAVIRUS, COVID-19, OLENA 2022-01-10 15:54:[address] [facility] BASIC METABOLIC PANEL 2022-01-10 15:54:00 Merissa Richards [facility] VITAMIN B12 2022-01-10 15:54:00 Merissa Richards [facility] VBG POC 2022-01-10 11:14:00 UnknownDia [facility] CBC/DIFF 2022-01-10 11:13:00 Antoine Hester [facility] BASIC METABOLIC PANEL 2022-01-10 11:13:00 Antoine Hester [facility] LACTIC ACID 2022-01-10 11:13:00 Antoine Hester [facility] CBC 2022-01-10 11:13:00 Antoine Hester [facility] LIVER PROFILE 2022-01-10 11:13:00 Brodie Richardsa Felicita [facility] CK, TOTAL 2022-01-10 11:13:00 Fercho Merissa Mims [facility] FERRITIN 2022-01-10 11:13:00 Fercho Merissa Felicita [facility] CREATINE KINASE MB (CKMB) 2022-01-10 11:13:00 Fercho Merissa Mims [facility] XRAY CHEST 2 VIEWS 2022-01-08 21:50:14 Tanja Sebastian [facility] CBC/DIFF 2022-01-08 21:27:00 Tanja Sebastian [facility] BASIC METABOLIC PANEL 2022-01-08 21:27:00 Tanja Sebastian [facility] LIVER PROFILE 2022-01-08 21:27:00 Tanja Sebastian [facility] CK, TOTAL 2022-01-08 21:27:00 Tanja Sebastian [facility] TROPONIN I 2022-01-08 21:27:00 Tanja Sebastian [facility] CBC 2022-01-08 21:27:00 Tanja Sebastian [facility] CREATINE KINASE MB (CKMB) 2022-01-08 21:27:00 Tanja Sebastian [place] [id number] LEAD EKG 2022-01-08 20:59:56 Tanja Sebastian [facility] COMP. METABOLIC PANEL 2021-09-14 03:41:00 Mickey Ramos [facility] ([id number]) [facility] [place] CBC WITH DIFF 2021-09-14 03:41:00 Mickey Ramos [facility] HEAD WO CONTRAST 2021-09-12 14:10:00 Odin [facility] TROPONIN I 2021-09-12 13:00:00 Odin [facility] BASIC METABOLIC PANEL (NA, 2021-09-12 13:00:00 Odin [facility] K, CL, CO2, GLUCOSE, BUN, Medica l Branch CREATININE, CA) CBC WITH DIFF 2021-09-12 13:00:00 Odin [facility] N-TERMINAL PRO-BNP 2021-09-12 13:00:00 Odin [facility] LIPASE 2021-09-09 05:30:00 Sebastian Pacheco [facility] COMP. METABOLIC PANEL 2021-09-09 05:30:00 Sebastian Pacheco [facility] ([id number]) [facility] CBC WITH DIFF 2021-09-09 05:30:00 Sebastian Pacheco [facility] URINALYSIS 2021-09-08 04:45:00 Sebastian Pacheco [facility] CT ABDOMEN PELVIS W 2021-09-08 02:25:23 Sebastian Pacheco [facility] CONTRAST [facility] LIPASE 2021-09-08 02:02:00 Sebastian Pacheco [facility] COMP. METABOLIC PANEL 2021-09-08 02:02:00 Sebastian Pacheco [facility] ([id number]) [facility] CBC WITH DIFF 2021-09-08 02:02:00 Sebastian Pacheco [facility] LACTIC ACID WHOLE BLOOD 2021-09-08 02:02:00 Sebastian Pacheco [facility] COVID-19 (ID NOW RAPID 2021-09-08 01:54:00 PachecoSebastian [facility] TESTING) Medical Branch BASIC METABOLIC PANEL (NA, 2021-09-04 12:30:00 Demario Godoy [facility] K, CL, CO2, GLUCOSE, BUN, Medica l Branch CREATININE, CA) BASIC METABOLIC PANEL (NA, 2021-09-04 12:30:00 Demario Godoy [facility] K, CL, CO2, GLUCOSE, BUN, Medica l Branch CREATININE, CA) SURGICAL PATHOLOGY EXAM 2021-09-03 14:01:00 Phatak, [facility] COLOSTOMY REVISION 2021-09-03 12:58:00 Phatak, [facility] COLOSTOMY REVISION 2021-09-03 12:58:00 Phatak, [facility] BASIC METABOLIC PANEL (NA, 2021-09-03 11:26:00 Siddiqi, [facility] K, CL, CO2, GLUCOSE, BUN, Medica l Branch CREATININE, CA) CBC WITHOUT DIFF 2021-09-03 11:26:00 Siddiqi, [facility] BASIC METABOLIC PANEL (NA, 2021-09-03 11:26:00 Siddiqi, [facility] K, CL, CO2, GLUCOSE, BUN, Medica l Branch CREATININE, CA) CBC WITHOUT DIFF 2021-09-03 11:26:00 Neeru, [facility] TRANSTHORACIC ECHO (TTE) 2021-09-02 21:22:12 Cynthia [facility] COMPLETE W/ CONTRAST [facility] TRANSTHORACIC ECHO (TTE) 2021-09-02 21:22:12 Cynthia [facility] COMPLETE W/ CONTRAST [facility] COVID-19 (ID NOW RAPID 2021-09-02 19:35:00 Demario Godoy [facility] TESTING) Medical Branch LAB ONLY COVID 2021-09-02 19:35:00 Demario Godoy [facility] INTERPRETATION [facility] COVID-19 (ID NOW RAPID 2021-09-02 19:35:00 Demario Godoy [facility] TESTING) Medical Branch LAB ONLY COVID 2021-09-02 19:35:00 Demario Godoy [facility] INTERPRETATION [facility] BASIC METABOLIC PANEL (NA, 2021-09-02 [...] CA) BLOOD CULTURE SCREEN 2021-09-01 08:03:00 Chasity [facility] BASIC METABOLIC PANEL (NA, 2021-09-01 08:03:00 Siddiqi, [facility]thia [facility] K, CL, CO2, GLUCOSE, BUN, Medica l Branch CREATININE, CA) CBC WITH DIFF 2021-09-01 08:03:00 Siddiqi, [facility] BLOOD CULTURE SCREEN 2021-09-01 08:03:00 [facility] BAS[facility]OLIC PANEL (NA, 2021-09-01 08:03:00 [facility]iddiqi, [facility] K, CL, CO2, GLUCOSE, BUN, Medica l Branch CREATININE, CA) CBC WITH DIFF 2021-09-01 08:03:00 Siddiqi, [facility] MAGNESIUM 2021-09-01 02:09:00 [facility]EL (NA, 2021-09-01 02:09:00 [facility], CO2, GLUCOSE, BUN, Arpita Medica l Branch CREATININE, CA) MAGNESIUM 2021-09-01 02:09:00 Gaspar, [facility] o f [facility] BASIC METABOLIC PANEL (NA, 2021-09-01 02:09:00 [facility] K, CL, CO2, GLUCOSE, BUN, Arpita [facility]ica [facility] CREATININE, CA) LACTIC ACID WHOLE BLOOD 2021-08-31 12:40:00 Siddiqi, [facility] LACTIC ACID WHOLE BLOOD 2021-08-31 12:40:00 [facility], [facility] BASIC METABOLIC PANEL (NA, 2021-08-31 11:44:00 Gaspar, [facility] K, CL, CO2, GLUCOSE, BUN, Medica l Branch CREATININE, CA) BASIC METABOLIC PANEL (NA, 2021-08-31 11:44:00 [facility] K, CL, CO2, GLUCOSE, BUN, Medica l Branch CREATININE, CA) BASIC METABOLIC PANEL (NA, 2021-08-31 06:29:00 [facility] K, CL, CO2, GLUCOSE, BUN, Medica l Branch CREATININE, CA) LACTIC ACID WHOLE BLOOD 2021-08-31 06:29:00 [facility] BASIC METABOLIC PANEL (NA, 2021-08-31 06:29:00 [facility] K, CL, CO2, GLUCOSE, BUN, Medica l Branch CREATININE, CA) LACTIC ACID WHOLE BLOOD 2021-08-31 06:29:00 [facility] 2021-08-31 06:28:00 [facility]UP 2021-08-31 06:28:00 [facility] GRAM POSITIVE BLOOD 2021-08-31 06:28:00 [facility] BLOOD CULTURE SCREEN 2021-08-31 06:28:00 [facility] BLOOD [facility] WORKUP 2021-08-31 06:28:00 [facility] GRAM POSITIVE BLOOD 2021-08-31 06:28:00 Chasity [facility] DNA [facility] PROBE-AEROBIC XR CHEST 2 VW 2021-08-31 03:08:00 Riccardo [facility] XR CHEST 2 VW 2021-08-31 03:08:00 Riccardo [facility] OSMOLALITY, SERUM OR 2021-08-31 02:44:00 [facility] 2021-08-31 02:44:00 Riccardo [facility] THYROID STIMULATING 2021-08-31 02:44:00 [facility]OL[facility] PANEL (NA, 2021-08-31 02:44:00 Riccardo [facility] K, CL, CO2, GLUCOSE, BUN, [facility] CREATININE, CA) OSMOLALITY, SERUM OR 2021-08-31 02:44:00 Chasity [facility] TROPONIN I 2021-08-31 02:44:00 Riccardo [facility] THYROID STIMULATING 2021-08-31 02:44:00 Chasity [facility] BASIC METABOLIC PANEL (NA, 2021-08-31 02:44:00 Riccardo [facility] K, CL, CO2, GLUCOSE, BUN, [facility] CREATININE, CA) OSMOLALITY URINE 2021-08-31 00:08:00 Chasity [facility] URINALYSIS 2021-08-31 00:08:00 Riccardo [facility] SODIUM, URINE RANDOM 2021-08-31 00:08:00 [facility] CHLORIDE, URINE RANDOM 2021-08-31 00:08:00 Chasity [facility] OSMOLALITY URINE 2021-08-31 00:08:00 Chasity [facility] URINALYSIS 2021-08-31 00:08:00 Gayatri Gu [facility] SODIUM, URINE RANDOM 2021-08-31 00:08:00 [facility] CHLORIDE, URINE RANDOM 2021-08-31 00:08:00 Gaspar [facility] TROPONIN I 2021-08-30 23:27:00 [facility]. [facility]OLIC PANEL 2021-08-30 23:27:00 Riccardo [facility] ([id number]) [facility] CBC WITH DIFF 2021-08-30 23:27:00 [facility] N-TERMINAL PRO-BNP 2021-08-30 23:27:00 [facility] 2021-08-30 23:27:00 Gayatri Gu [facility] COMP. METABOLIC PANEL 2021-08-30 23:27:00 Riccardo [facility] ([id number]) [facility] CBC WITH DIFF 2021-08-30 23:27:00 Riccardo [facility] N-TERMINAL PRO-BNP 2021-08-30 23:27:00 Gayatri Gu [facility] HB ECG ROUTINE & RHYTHM 2021-08-30 23:04:48 [facility] RHYTHM 2021-08-30 23:04:48 Gayatri Gu Un [facility] XR CHEST 1 VW 2021-08-30 00:31:51 Alvarez [facility] POCT RAPID STREP SCREEN 2021-08-30 00:24:00 Alvarez [facility] FOR GROUP A [facility] GALV ONLY - INFLUENZA A B 2021-08-30 00:15:00 Alvarez [facility] RSV PCR Medical Branch COVID-19 (MOLECULAR 2021-08-30 00:15:00 Alvarez Austin [facility] TESTING [facility] NUCLEIC ACID AMPLIFICATION) PREALBUMIN, SERUM 2021-08-05 10:46:00 [facility] 2021-08-05 10:46:00 Cesar [facility] ALBUMIN 2021-08-05 10:46:00 Cesar [facility] MAGNESIUM 2021-08-05 10:46:00 Cesar, [facility] BASIC METABOLIC PANEL (NA, 2021-08-05 10:46:00 Cesar, [facility], CL, CO2, GLUCOSE, BUN, Medica l Branch CREATININE, CA) CBC WITH DIFF 2021-08-05 10:46:00 Cesar [facility] COVID-19 (ID NOW RAPID 2021-08-05 00:29:00 [facility] 2021-08-04 11:37:[address] [facility] MAGNESIUM 2021-08-04 11:37:[address] [facility] BASIC METABOLIC PANEL (NA, 2021-08-04 11:37:00 [facility] K, CL, CO2, GLUCOSE, BUN, [place] [facility] CREATININE, CA) CBC WITH DIFF 2021-08-04 11:37:[address] [facility] PHOSPHORUS 2021-08-03 10:36:[address] [facility] MAGNESIUM 2021-08-03 10:36:[address] [facility] BASIC METABOLIC PANEL (NA, 2021-08-03 10:36:00 [facility] K, CL, CO2, GLUCOSE, BUN, [place] [facility] CREATININE, CA) CBC WITH DIFF 2021-08-03 10:36:[address] [facility] PHOSPHORUS 2021-08-02 10:53:[address] [facility] MAGNESIUM 2021-08-02 10:53:00 [facility] (NA, 2021-08-02 10:53:00 [place] [facility] [place] K, CL, CO2, GLUCOSE, BUN, [facility] CREATININE, CA) CBC WITH DIFF 2021-08-02 10:53:[address] [facility] PHOSPHORUS 2021-08-01 10:03:[address] [facility] MAGNESIUM 2021-08-01 10:03:00 [facility] [place] [facility]OL[facility] PANEL (NA, 2021-08-01 10:03:00 Hakeem Jo, [employer] [place] K, CL, CO2, GLUCOSE, BUN, [facility] CREATININE, CA) CBC WITH DIFF 2021-08-01 10:03:00 [facility] PRE[facility], SERUM 2021-07-31 10:22:00 Antonino jin [facility] [place], [place] [facility] PHOSPHORUS 2021-07-31 10:22:[address] [facility] MAGNESIUM 2021-07-31 10:22:00 [facility] BASIC METABOLIC PANEL (NA, 2021-07-31 10:22:00 Hakeem Jo, [employer] [place] K, CL, CO2, GLUCOSE, BUN, [facility] CREATININE, CA) CBC WITH DIFF 2021-07-31 10:22:00 [facility] COVID-19 (ID NOW RAPID 2021-07-30 06:13:00 Jonah Rees [facility]) Medical Branch LAB ONLY COVID 2021-07-30 06:13:00 Jonah Rees [facility] INTERPRETATION [facility] CT ABDOMEN PELVIS W 2021-07-30 05:19:01 Jonah Rees [facility] CONTRAST Medical Branch COMP. METABOLIC PANEL 2021-07-30 03:25:00 Jonah Rees [facility] ([id number]) Medical Branch LACTIC ACID WHOLE BLOOD 2021-07-30 02:53:00 Jonah Rees [facility] Medical Branch LIPASE 2021-07-30 02:52:00 NegritaJonah segal [facility] CBC WITH DIFF 2021-07-30 02:52:00 Jonah Rees [facility] CONSENT/REFUSAL FOR 2021-07-30 02:09:09 Doctor Unassigned, [facility] DIAGNOSIS AND TREATMENT [place] [facility] PHOSPHORUS 2021-07-26 12:30:00 Antonino Karlo [facility] [place], [place] [facility] MAGNESIUM 2021-07-26 12:30:00 Antonino Karlo [facility] [place] [place] [facility] BASIC METABOLIC PANEL (NA, 2021-07-26 12:30:00 [facility], CO2, GLUCOSE, BUN, [place], [place] [facility] CREATININE, CA) CBC WITH DIFF 2021-07-26 12:30:00 Antonino Karlo [facility] [place], [place] [facility] PHOSPHORUS 2021-07-25 11:32:00 [facility]UM 2021-07-25 11:32:00 [facility] BASIC METABOLIC PANEL (NA, 2021-07-25 11:32:00 Antonino Karlo nv [facility] K, CL, CO2, GLUCOSE, BUN, [place], [place] [facility] CREATININE, CA) CBC WITH DIFF 2021-07-25 11:32:00 Antonino Karlo [facility] [place], [place] [facility] CBC WITH DIFF 2021-07-25 04:13:00 [facility] PHOSPHORUS 2021-07-24 12:18:00 [facility] MAGNESIUM 2021-07-24 12:18:00 Cesar, Adil [facility] acute hospital BASIC METABOLIC PANEL (NA, 2021-07-24 12:18:00 [facility] K, CL, CO2, GLUCOSE, BUN, Medica l Branch CREATININE, CA) COVID-19 (ID NOW RAPID 2021-07-23 15:23:00 Flaco Lemus [facility] TESTING) Medical Branch LAB ONLY COVID 2021-07-23 15:23:00 Flaco Lemus [facility] URINALYSIS 2021-07-23 12:49:[address] [facility] PHOSPHORUS 2021-07-23 12:42:00 [facility] 2021-07-23 12:42:00 [facility] BASIC METABOLIC PANEL (NA, 2021-07-23 12:42:00 [facility] K, CL, CO2, GLUCOSE, BUN, [facility] CREATININE, CA) CBC WITH DIFF 2021-07-23 12:42:00 [facility] ABDOMEN PELVIS WO 2021-07-23 08:55:17 Flaco Lemus [facility] EXTERNAL PROVIDER RECORDS 2021-06-25 05:01:00 Doctor Unassigned, [facility] [place] [facility] BASIC METABOLIC PANEL (NA, 2021-06-03 10:37:00 Shweta Anderson [facility] K, CL, CO2, GLUCOSE, BUN, Medica l Branch CREATININE, CA) BASIC METABOLIC PANEL (NA, 2021-06-02 10:54:00 Shweta Anderson [facility] K, CL, CO2, GLUCOSE, BUN, Medica l Branch CREATININE, CA) CLOSTRIDIUM DIFFICILE 2021-06-01 22:51:00 Charly Fowler [facility] TOXIN [facility] FECAL PATHOGENS BY PCR 2021-06-01 22:51:00 Charly Fowler [facility] BASIC METABOLIC PANEL (NA, 2021-06-01 15:42:00 Shweta Anderson [facility] K, CL, CO2, GLUCOSE, BUN, Medica l Branch CREATININE, CA) LACTIC ACID WHOLE BLOOD 2021-06-01 05:38:00 Clementine Castellon [facility] CT ABDOMEN PELVIS W 2021-05-31 23:25:45 Willie Garrett [facility] CONTRAST [facility] LIPASE 2021-05-31 22:44:00 Willie Garrett [facility] acute hospital TROPONIN I 2021-05-31 22:44:00 Willie Garrett [facility] acute hospital COMP. METABOLIC PANEL 2021-05-31 22:44:00 Willie Garrett [facility] ([id number]) Medical Branch CBC WITH DIFF 2021-05-31 22:44:00 Willie Garrett [facility] acute hospital COVID-19 (ID NOW RAPID 2021-05-31 22:44:00 Willie Garrett [facility] TESTING) Medical Branch LAB ONLY COVID 2021-05-31 22:44:00 Wilile Garrett [facility] INTERPRETATION [facility] PHOSPHORUS 2021-05-21 09:03:00 [facility] MAGNESIUM 2021-05-21 09:03:00 [facility] BASIC METABOLIC PANEL (NA, 2021-05-21 09:03:00 Agatha Noonan [facility] K, CL, CO2, GLUCOSE, BUN, Medica l Branch CREATININE, CA) CBC WITH DIFF 2021-05-21 09:03:00 Agatha Noonan [facility] acute hospital XR KUB 2021-05-20 20:02:49 [facility]j [facility] LIPASE 2021-05-20 20:00:00 Andrzej [facility] COMP. METABOLIC PANEL 2021-05-20 20:00:00 Andrzej [facility] ([id number]) Medical Branch CBC WITH DIFF 2021-05-20 20:00:00 Andrzej [facility] LACTIC ACID WHOLE BLOOD 2021-05-20 20:00:00 Andrzej [facility] COVID-19 (ID NOW RAPID 2021-05-20 20:00:00 Bernardo Donnelly [facility] TESTING) Medical Branch BASIC METABOLIC PANEL (NA, 2021-05-08 10:04:00 Rodrick Keane [facility] K, CL, CO2, GLUCOSE, BUN, Medica l Branch CREATININE, CA) CBC WITH DIFF 2021-05-08 10:04:00 Irene Lora [facility] [place] XR KUB 2021-05-08 09:44:22 Beto [facility] XR ABDOMEN 1 VW 2021-05-08 05:32:36 Abbeau [facility] CT ABDOMEN PELVIS W 2021-05-08 01:08:43 Alona Pérez [facility] CONTRAST [facility] HEPATIC FUNCTION PANEL 2021-05-08 00:49:00 Alona Pérez [facility] ([id number]) (ALB,T.PRO,BILI [facility] [place] T,BU/BC,ALT,AST,ALK PHOS) BASIC METABOLIC PANEL (NA, 2021-05-08 00:49:00 Alona Pérez [facility] K, CL, CO2, GLUCOSE, BUN, Medica l Branch CREATININE, CA) CBC WITH DIFF 2021-05-08 00:49:00 Beto [facility] COVID-19 (ID NOW RAPID 2021-05-08 00:42:00 Alona Pérez [facility] TESTING) Medical Branch LAB ONLY COVID 2021-05-08 00:42:00 Beto [facility] INTERPRETATION [facility] NOTICE OF PRIVACY 2020-09-27 01:47:31 Doctor Unassigned, [facility] PRACTICES [place] [facility] CONSENT/REFUSAL FOR 2020-09-27 01:47:01 Doctor Unassigned, [facility] DIAGNOSIS AND TREATMENT [place] [facility] [place] BASIC METABOLIC PANEL (NA, 2020-08-23 10:03:00 [facility] K, CL, CO2, GLUCOSE, BUN, Medica l Branch CREATININE, CA) CBC WITHOUT DIFF 2020-08-23 10:03:00 Judith Ingram [facility] Branch COVID-19 (ID NOW RAPID 2020-08-23 00:23:00 Funmilayo Pinzon [facility] TESTING) Medical Branch HB ECG ROUTINE & RHYTHM 2020-08-22 22:19:37 Funmilayo Pinzon [facility] STRIP [facility] HEPATIC FUNCTION PANEL 2020-08-22 22:08:00 Funmilayo Pinzon [facility] ([id number]) (ALB,T.PRO,BILI Medical Branch T,BU/BC,ALT,AST,ALK PHOS) BASIC METABOLIC PANEL (NA, 2020-08-22 22:08:00 Nallely Pinzon [facility] K, CL, CO2, GLUCOSE, BUN, Medica l Branch CREATININE, CA) CBC WITH DIFF 2020-08-22 22:08:00 Funmilayo Pinzon [facility] CT SOFT TISSUE NECK W 2020-07-10 00:21:[address] [facility] URINALYSIS 2020-07-09 23:07:00 Juan M Aguillon [facility] BASIC METABOLIC PANEL (NA, 2020-07-09 22:51:00 Kirk Aguillon [facility] K, CL, CO2, GLUCOSE, BUN, Medica l Branch CREATININE, CA) CBC WITH DIFF 2020-07-09 22:51:00 Juan M Aguillon [facility] RAPID STREP SCREEN FOR 2020-07-09 22:51:00 Juan M Aguillon [facility] GROUP A Medical Branch COVID-19 (ID NOW RAPID 2020-07-09 22:51:00 Juan M Aguillon [facility] TESTING) Medical Branch CT ABDOMEN PELVIS W 2020-06-05 13:02:55 Travis Valdez [facility] URINALYSIS 2020-06-05 13:02:00 More Goetz [facility] EKG-12 LEAD 2020-06-05 11:57:46 More Goetz [facility] LIPASE 2020-06-05 11:57:00 More Goetz [facility] TROPONIN I 2020-06-05 11:57:00 More Goetz [facility] HEPATIC FUNCTION PANEL 2020-06-05 11:57:00 More Goetz [facility] ([id number]) ([facility] T,BU/BC,ALT,AST,ALK PHOS) BASIC METABOLIC PANEL (NA, 2020-06-05 11:57:00 More Goetz [facility] K, CL, CO2, GLUCOSE, BUN, Medica l Branch CREATININE, CA) CBC WITH DIFF 2020-06-05 11:57:00 More Goetz [facility] LACTIC ACID WHOLE BLOOD 2020-06-05 11:57:00 More Goetz U [facility] PHOSPHORUS 2020-05-31 07:54:00 Dongur, Katia [facility] MAGNESIUM 2020-05-31 07:54:00 Dongur, [facility] BAS[facility]OLIC PANEL (NA, 2020-05-31 07:54:00 Dongalis, Katia Parvin [facility] K, CL, CO2, GLUCOSE, BUN, Medica l Branch CREATININE, CA) CBC WITH DIFF 2020-05-31 07:54:00 Dongalis, Katia [facility] IR CHANGE OF ABSCESS DRAIN 2020-05-30 19:33:43 Ashwin Marshall [facility] PHOSPHORUS 2020-05-30 08:19:00 Lambreton Gonzales, [facility] MAGNESIUM 2020-05-30 08:19:00 Lambreton Gonzales, [facility] BASIC METABOLIC PANEL (NA, 2020-05-30 08:19:00 Silviaon Carlos segal, [facility] [place] K, CL, CO2, GLUCOSE, BUN, [facility] CREATININE, CA) PHOSPHORUS 2020-05-29 06:43:00 Lambreton Gonzales, [facility] MAGNESIUM 2020-05-29 06:43:00 Lambreton Gonzales, [facility] BASIC METABOLIC PANEL (NA, 2020-05-29 06:43:00 Lambreton Carlos a, [facility] [place] K, CL, CO2, GLUCOSE, BUN, [facility] CREATININE, CA) PHOSPHORUS 2020-05-28 09:08:00 Lambreton Gonzales, [facility] MAGNESIUM 2020-05-28 09:08:00 Lambreton Gonzaels, [facility] BASIC METABOLIC PANEL (NA, 2020-05-28 09:08:00 Lambreton Calros a, [employer] [place] K, CL, CO2, GLUCOSE, BUN, [facility] CREATININE, CA) PHOSPHORUS 2020-05-27 09:33:00 Lambreton Gonzales, [facility] MAGNESIUM 2020-05-27 09:33:00 Lambreton Gonzales, [facility] BASIC METABOLIC PANEL (NA, 2020-05-27 09:33:00 Lambreton Carlos a, [facility] [place] K, CL, CO2, GLUCOSE, BUN, [facility] CREATININE, CA) PHOSPHORUS 2020-05-26 09:27:00 Lambreton Gonzales, [facility] MAGNESIUM 2020-05-26 09:27:00 Lambreton Gonzales, [facility] BASIC METABOLIC PANEL (NA, 2020-05-26 09:27:00 Lambreton Carlos a, [facility] [place] K, CL, CO2, GLUCOSE, BUN, [facility] CREATININE, CA) PHOSPHORUS 2020-05-25 21:42:00 Lambreton Gonzales, [facility] MAGNESIUM 2020-05-25 21:42:00 Lambreton Gonzales, [facility] BASIC METABOLIC PANEL (NA, 2020-05-25 21:42:00 Lambreton Carlos a, [employer] [place] K, CL, CO2, GLUCOSE, BUN, [facility] CREATININE, CA) CBC WITH DIFF 2020-05-25 21:42:00 Lambreton Gonzales, [facility] XR KUB 2020-05-25 20:39:54 [facility] 2020-05-25 08:48:00 Lambreton Gonzales, [facility] MAGNESIUM 2020-05-25 08:48:00 Socorro Wilkinsnojosa, [facility] BASIC METABOLIC PANEL (NA, 2020-05-25 08:48:00 Socorro segal, [facility] K, CL, CO2, GLUCOSE, BUN, [facility] CREATININE, CA) PHOSPHORUS 2020-05-24 20:41:00 Silviaon Gonzales, [facility] MAGNESIUM 2020-05-24 20:41:00 Silviaon Gonzales, [facility] BASIC METABOLIC PANEL (NA, 2020-05-24 20:41:00 Silviafadia Carlos a, [facility] K, CL, CO2, GLUCOSE, BUN, [facility] CREATININE, CA) IR CHANGE OF ABSCESS DRAIN 2020-05-24 17:57:11 Vance Stafford [facility] IR ASPIRATION ABSCESS 2020-05-24 17:24:40 [facility] CYST BY NEEDLE [facility] ASPIRATE OR ABSCESS 2020-05-24 17:23:00 Nixon Prince [facility] CULTURE(AEROBIC/ANAEROBIC) Medic nv Branch CBC WITH DIFF 2020-05-24 11:08:00 Sumeet [facility]BDOMEN PELVIS W 2020-05-23 15:02:24 Randa [facility] CONTRAST [facility] BASIC METABOLIC PANEL (NA, 2020-05-23 09:45:00 [facility] K, CL, CO2, GLUCOSE, BUN, [facility] Medica [facility] CREATININE, CA) COVID-19 (PCR MOLECULAR 2020-05-23 06:53:00 Mayela Bia [facility] TESTING) [facility] URINALYSIS 2020-05-22 21:41:00 Lopez, [facility] LIPASE 2020-05-22 21:26:00 Lopez, [facility] HEPATIC FUNCTION PANEL 2020-05-22 21:26:00 LopezAlex sweeney [facility] ([id number]) (ALB,T.PRO,BILI Medical Branch T,BU/BC,ALT,AST,ALK PHOS) BASIC METABOLIC PANEL (NA, 2020-05-22 21:26:00 Alex Lopez [facility] K, CL, CO2, GLUCOSE, BUN, Medica l Branch CREATININE, CA) CBC WITH DIFF 2020-05-22 21:26:00 Colette [facility] PROTHROMBIN TIME / INR 2020-05-22 21:26:00 Alex Lopez [facility] ACTIVATED PARTIAL THRMPLAS 2020-05-22 21:26:00 Alex Lopez [facility] SELENA [facility] XR CHEST 1 VW 2020-05-22 20:55:00 Colette Tngeri [facility] acute hospital HOSPITAL ADMISSION 2020-05-22 05:01:00 Doctor Unassigned, [facility] [place] [facility] URINALYSIS 2020-05-20 09:58:00 Jonah Rodriguez [facility] COVID-19 (ID NOW RAPID 2020-05-20 09:48:00 Jonah Rodriguez [facility] TESTING) Medical Branch CT ABDOMEN PELVIS W 2020-05-20 04:07:43 Jonah Rodriguez [facility] CONTRAST [facility] LIPASE 2020-05-20 03:09:00 Jonah Rodriguez [facility] MAGNESIUM 2020-05-20 03:09:00 [facility] TROPONIN I 2020-05-20 03:09:00 Michael [facility] COMP. METABOLIC PANEL 2020-05-20 03:09:00 Jonah [facility] ([id number]) Medical Branch CBC WITH DIFF 2020-05-20 03:09:00 Jonah Rodriguez [facility] PHOSPHORUS 2020-05-10 09:13:00 [facility] MAGNESIUM 2020-05-10 09:13:00 [facility] BASIC METABOLIC PANEL (NA, 2020-05-10 09:13:00 [facility] K, CL, CO2, GLUCOSE, BUN, Medica l Branch CREATININE, CA) CBC WITH DIFF 2020-05-10 09:13:00 [facility] 2020-05-09 10:28:00 Randa [facility] MAGNESIUM 2020-05-09 10:28:00 [facility] BASIC METABOLIC PANEL (NA, 2020-05-09 10:28:00 Rudyard, [facility] K, CL, CO2, GLUCOSE, BUN, Medica l Branch CREATININE, CA) CBC WITH DIFF 2020-05-09 10:28:00 [facility] 2020-05-08 11:18:00 [facility]UM 2020-05-08 11:18:00 [facility] BASIC METABOLIC PANEL (NA, 2020-05-08 11:18:00 Randa, [facility] K, CL, CO2, GLUCOSE, BUN, Medica l Branch CREATININE, CA) CBC WITH DIFF 2020-05-08 11:18:00 [facility] 2020-05-07 09:21:00 [facility]UM 2020-05-07 09:21:00 [facility] BASIC METABOLIC PANEL (NA, 2020-05-07 09:21:00 Rudyard, [facility] K, CL, CO2, GLUCOSE, BUN, Medica l Branch CREATININE, CA) CBC WITH DIFF 2020-05-07 09:21:00 Randa [facility] PHOSPHORUS 2020-05-06 09:57:00 [facility] 2020-05-06 09:57:00 [facility] BASIC METABOLIC PANEL (NA, 2020-05-06 09:57:00 Rudyard, [facility] K, CL, CO2, GLUCOSE, BUN, Medica l Branch CREATININE, CA) CBC WITH DIFF 2020-05-06 09:56:00 [facility] IR DRAINAGE BY CATHETER 2020-05-05 19:55[facility]00 [facility] Branch RETROPERITONEAL BODY FLUID 2020-05-05 19:06:00 Nixon Prince [facility] CULTURE(AEROBIC/ANAEROBIC) [facility] FUNGUS (ROUTINE) CULTURE 2020-05-05 19:06:00 Nixon Prince [facility] BODY FLUID 2020-05-05 19:00:00 Ivan Guthrie [facility] CULTURE(AEROBIC/ANAEROBIC) [facility] FUNGUS (ROUTINE) CULTURE 2020-05-05 19:00:00 Ivan Guthrie [facility] PREPARE PACKED RBC 2020-05-05 15:59:33 Hakeem Jo [facility] HB ABO GROUPING 2020-05-05 10:55:00 Hakeem [facility] PREALBUMIN, SERUM 2020-05-05 08:56:00 Randa [facility] PHOSPHORUS 2020-05-05 08:56:00 Randa [facility] MAGNESIUM 2020-05-05 08:56:00 Randa [facility] BASIC METABOLIC PANEL (NA, 2020-05-05 08:56:00 Randa [facility] K, CL, CO2, GLUCOSE, BUN, [facility] [place] CREATININE, CA) CBC WITH DIFF 2020-05-05 08:56:00 Rudyard [facility] URINALYSIS 2020-05-05 05:11:00 Lora [facility] CT ABDOMEN PELVIS W 2020-05-05 04:18:56 [facility] CONTRAST [facility] LIPASE 2020-05-05 02:35:00 Lora [facility] COMP. METABOLIC PANEL 2020-05-05 02:35:00 Lora Hall [facility] ([id number]) [facility] [place] CBC WITH DIFF 2020-05-05 02:35:00 Lora [facility] COVID-19 (ID NOW RAPID 2020-05-05 02:27:00 Lora Hall [facility] TESTING) Medical Branch HOSPITAL ADMISSION 2020-05-04 05:01:00 Doctor Unassigned, [facility] [place] Medical Branch CBC WITH DIFF 2020-05-01 11:32:00 [facility] 2020-05-01 11:32:00 [facility] MAGNES[facility]UM 2020-05-01 11:32:00 [facility] BASIC METABOLIC PANEL (NA, 2020-05-01 11:32:00 Randa [facility] K, CL, CO2, GLUCOSE, BUN, Medica l Branch CREATININE, CA) CBC WITH DIFF 2020-04-29 11:31:00 Rudyard [facility] PHOSPHORUS 2020-04-29 11:31:00 [facility] 2020-04-29 11:31:00 [facility] BASIC METABOLIC PANEL (NA, 2020-04-29 11:31:[facility], CL, CO2, GLUCOSE, BUN, Medica l Branch CREATININE, CA) CBC WITH DIFF 2020-04-28 08:51:00 Becky, [facility] MAGNESIUM 2020-04-28 08:51:00 Becky, [facility] BASIC METABOLIC PANEL (NA, 2020-04-28 08:51:00 Becky [facility] K, CL, CO2, GLUCOSE, BUN, Cathryn Medica l Branch CREATININE, CA) CBC WITH DIFF 2020-04-27 09:34:00 Becky, [facility] MAGNESIUM 2020-04-27 09:34:00 Becky, [facility] BASIC METABOLIC PANEL (NA, 2020-04-27 09:34:00 Becky [facility] K, CL, CO2, GLUCOSE, BUN, Cathryn Medica [facility] Branch CREATININE, CA) CBC WITH DIFF 2020-04-26 09:27:00 Becky, [facility] MAGNESIUM 2020-04-26 09:27:00 Becky, [facility] BASIC METABOLIC PANEL (NA, 2020-04-26 09:27:00 Becky, [facility] K, CL, CO2, GLUCOSE, BUN, Cathryn [facility]ica [facility] CREATININE, CA) CBC WITH DIFF 2020-04-25 08:59:00 Becky, [facility] MAGNESIUM 2020-04-25 08:59:00 Becky, [facility] BASIC METABOLIC PANEL (NA, 2020-04-25 08:59:00 Becky, [facility] K, CL, CO2, GLUCOSE, BUN, Cathryn [facility] CREATININE, CA) CBC WITH DIFF 2020-04-24 09:44:00 Becky [facility] MAGNESIUM 2020-04-24 09:44:00 Becky, [facility] BASIC METABOLIC PANEL (NA, 2020-04-24 09:44:00 Becky, [facility] K, CL, CO2, GLUCOSE, BUN, Cathryn Medica Branch CREATININE, CA) CT ABDOMEN PELVIS W 2020-04-23 23:24:02 Grant Cheema, [facility] CONTRAST [facility] CT THORAX W CONTRAST 2020-04-23 23:24:02 Grant Cheema, [facility] COVID-19 (ID NOW RAPID 2020-04-23 15:06:00 Grant Cheema, [facility] TESTING) [facility] PREALBUMIN, SERUM 2020-04-23 13:42:00 Grant Cheema, [facility] POTASSIUM SERUM 2020-04-23 13:42:00 Becky [facility] CBC WITH DIFF 2020-04-23 10:17:00 Becky, [facility] MAGNESIUM 2020-04-23 10:17:00 Becky, [facility] BASIC METABOLIC PANEL (NA, 2020-04-23 10:17:00 Becky, [facility] K, CL, CO2, GLUCOSE, BUN, Cathryn [facility] CREATININE, CA) XR CHEST 1 VW 2020-04-23 10:03:00 Becky, [facility] MAGNESIUM 2020-04-22 10:37:00 Becky, [facility] BASIC METABOLIC PANEL (NA, 2020-04-22 10:37:00 Becky [facility] K, CL, CO2, GLUCOSE, BUN, Cathryn [facility]ica [facility] CREATININE, CA) CBC WITH DIFF 2020-04-22 10:30:00 Becky [facility] XR CHEST 1 VW 2020-04-22 07:30:00 Becky [facility] CBC WITH DIFF 2020-04-21 13:09:00 Becky [facility] MAGNESIUM 2020-04-21 13:09:00 Becky [facility] BASIC METABOLIC PANEL (NA, 2020-04-21 13:09:00 Becky [facility] K, CL, CO2, GLUCOSE, BUN, Cathryn [facility] CREATININE, CA) XR CHEST 1 2020-04-21 06:41:00 Grant Cheema [facility] XR CHEST 1 2020-04-20 11:03:41 Grant Cheema [facility] CBC WITH DIFF 2020-04-20 09:45:00 Katrina [facility] PREALBUMIN, SERUM 2020-04-20 09:45:00 Abebe Kilgore [facility] PHOSPHORUS 2020-04-20 09:45:00 Carola [facility] MAGNESIUM 2020-04-20 09:45:00 Katrina [facility] BASIC METABOLIC PANEL (NA, 2020-04-20 09:45:00 Yosvany Herndon [facility] K, CL, CO2, GLUCOSE, BUN, Medica l Branch CREATININE, CA) XR CHEST 1 2020-04-19 10:13:45 Becky [facility] CBC WITH DIFF 2020-04-19 10:10:00 Katrina [facility] PHOSPHORUS 2020-04-19 10:10:00 Carola [facility] MAGNESIUM 2020-04-19 10:10:00 Katrina [facility] BASIC METABOLIC PANEL (NA, 2020-04-19 10:10:00 [facility], CL, CO2, GLUCOSE, BUN, Medica l Branch CREATININE, CA) XR CHEST 1 VW 2020-04-18 11:01:00 Becky [facility] CBC WITH DIFF 2020-04-18 10:19:00 Katrina [facility] PHOSPHORUS 2020-04-18 10:19:00 Carola [facility] MAGNESIUM 2020-04-18 10:19:00 Katrina [facility] BASIC METABOLIC PANEL (NA, 2020-04-18 10:19:00 [facility] K, CL, CO2, GLUCOSE, BUN, [facility] CREATININE, CA) XR CHEST 1 2020-04-17 18:58:00 Becky [facility] CBC WITH DIFF 2020-04-17 09:33:00 Katrina [facility] PHOSPHORUS 2020-04-17 09:33:00 Carola [facility] MAGNESIUM 2020-04-17 09:33:00 Katrina [facility] BASIC METABOLIC PANEL (NA, 2020-04-17 09:33:00 [facility] CL, CO2, GLUCOSE, BUN, Medica l Branch CREATININE, CA) XR CHEST 1 VW 2020-04-17 08:52:00 Grant Cheema [facility] XR CHEST 1 VW 2020-04-16 23:45:00 [facility] BODY FLUID 2020-04-16 21:50:00 Rivera Maria [facility] CULTURE(AEROBIC/ANAEROBIC) [facility] FUNGUS (ROUTINE) CULTURE 2020-04-16 21:50:00 Vance Stafford [facility] CYTO PLEURAL FLUID 2020-04-16 21:50:00 Vance Stafford [facility] LDH TOTAL BODY FLUID 2020-04-16 21:50:00 Rivera, [facility] AMYLASE BODY FLUID 2020-04-16 21:50:00 Rivera [facility] GLUCOSE BODY FLUID 2020-04-16 21:50:00 Rivera [facility] PH, BODY FLUID 2020-04-16 21:50:00 Rivera [facility] T.PROTEIN BODY FLUID 2020-04-16 21:50:00 Rivera [facility] BODY FLUID DIRECT COUNT 2020-04-16 21:50:00 Rivera [facility] IR PLEURAL DRAINAGE WITH 2020-04-16 21:36:25 Rosaura Pena [facility] TUBE WITH IMAGING [facility] PROTHROMBIN TIME / INR 2020-04-16 16:07:00 Rosaura Pena [facility] CBC WITH DIFF 2020-04-16 10:07:00 Katrina [facility] PHOSPHORUS 2020-04-16 10:07:00 Carola [facility] MAGNESIUM 2020-04-16 10:07:00 Katrina [facility] BASIC METABOLIC PANEL (NA, 2020-04-16 10:07:00 Yosvany Herndon [facility] K, CL, CO2, GLUCOSE, BUN, Medica l Branch CREATININE, CA) CT ABDOMEN PELVIS W 2020-04-16 07:02:[facility]FF 2020-04-15 10:02:00 Katrina [facility] PHOSPHORUS 2020-04-15 10:02:00 Carola [facility] MAGNESIUM 2020-04-15 10:02:00 Katrina [facility] BASIC METABOLIC PANEL (NA, 2020-04-15 10:02:00 Yosvany Herndon [facility] K, CL, CO2, GLUCOSE, BUN, Medica l Branch CREATININE, CA) CBC WITH DIFF 2020-04-14 10:26:00 Katrina [facility] PHOSPHORUS 2020-04-14 10:26:00 Sabi Srivastava [facility] MAGNESIUM 2020-04-14 10:26:00 [facility] BASIC METABOLIC PANEL (NA, 2020-04-14 10:26:00 Yosvany Herndon [facility] K, CL, CO2, GLUCOSE, BUN, Medica l Branch CREATININE, CA) BASIC METABOLIC PANEL (NA, 2020-04-13 23:53:00 Grant Santana i, [facility] K, CL, CO2, GLUCOSE, BUN, Danny Medica l Branch CREATININE, CA) CBC WITHOUT DIFF 2020-04-13 23:53:00 Grant Cheema [facility] IR DRAINAGE BY CATHETER 2020-04-13 20:35:08 Grant Cheema, [facility] PERITONEAL OR [facility] RETROPERITONEAL BODY FLUID 2020-04-13 20:05:00 Neris Grier [facility] CULTURE(AEROBIC/ANAEROBIC) [facility] LDH TOTAL BODY FLUID 2020-04-13 20:05:00 Grant Cheema, [facility] GLUCOSE BODY FLUID 2020-04-13 20:05:00 Grant Cheema [facility] T.PROTEIN BODY FLUID 2020-04-13 20:05:00 Grant Cheema, [facility] BODY FLUID DIRECT COUNT 2020-04-13 20:05:00 Grant Cheema, [facility] CBC WITH DIFF 2020-04-13 10:44:00 Katrina Yosvany [facility] PHOSPHORUS 2020-04-13 10:44:00 Carola [facility] MAGNESIUM 2020-04-13 10:44:00 Katrina [facility] BASIC METABOLIC PANEL (NA, 2020-04-13 10:44:00 Yosvany Herndon [facility] K, CL, CO2, GLUCOSE, BUN, Medica l Branch CREATININE, CA) CT ABDOMEN PELVIS W 2020-04-12 21:23:19 Grant Cheema [facility] CONTRAST [facility] URINALYSIS 2020-04-12 20:43:00 Rosaura Pena [facility] URINE CULTURE 2020-04-12 20:43:00 Becky [facility] BLOOD CULTURE WORKUP 2020-04-12 18:51:00 Rosaura Pena [facility] GRAM NEGATIVE BLOOD 2020-04-12 18:51:00 Rosaura Pena [facility] PATHOGENS DNA [facility] PROBE-ANAEROBIC BLOOD CULTURE SCREEN 2020-04-12 18:51:00 Rosaura Pena [facility] BLOOD CULTURE SCREEN 2020-04-12 18:50:00 Becky Rosaura [facility] CBC WITH DIFF 2020-04-12 08:46:00 Katrina [facility] PHOSPHORUS 2020-04-12 08:46:00 Carola [facility] MAGNESIUM 2020-04-12 08:46:00 Katrina [facility] BASIC METABOLIC PANEL (NA, 2020-04-12 08:46:00 Yosvany Herndon [facility] K, CL, CO2, GLUCOSE, BUN, Medica l Branch CREATININE, CA) CBC WITH DIFF 2020-04-11 08:54:00 Katrina [facility] PHOSPHORUS 2020-04-11 08:54:00 Carola [facility] MAGNESIUM 2020-04-11 08:54:00 Katrina [facility] BASIC METABOLIC PANEL (NA, 2020-04-11 08:54:00 Yosvany Herndon [facility] K, CL, CO2, GLUCOSE, BUN, Medica l Branch CREATININE, CA) CBC WITH DIFF 2020-04-10 09:49:00 Katrina [facility] PHOSPHORUS 2020-04-10 09:49:00 Carola [facility] MAGNESIUM 2020-04-10 09:49:00 Katrina [facility] XR CHEST 1 VW 2020-04-09 11:27:00 Grant Cheema [facility] CBC WITH DIFF 2020-04-09 09:07:00 Katrina [facility] PHOSPHORUS 2020-04-09 09:07:00 Carola [facility] MAGNESIUM 2020-04-09 09:07:00 Katrina [facility] HEPATIC FUNCTION PANEL 2020-04-09 09:07:00 Grant Deni [facility] ([id number]) (ALB,T.PRO,[facility] T,BU/BC,ALT,AST,ALK PHOS) BASIC METABOLIC PANEL (NA, 2020-04-09 09:07:00 [facility], CL, CO2, GLUCOSE, BUN, Medica l Branch CREATININE, CA) AC PANEL 20 + LACTIC ACID 2020-04-08 21:11:00 Yosvany Herndon [facility] POCT GLUCOSE (AUTOMATED) 2020-04-08 12:27:00 Phatak, Bia Uni [facility] AC PANEL 21 + LACTIC ACID 2020-04-08 09:34:00 Bigg Lawton [facility] POCT GLUCOSE (AUTOMATED) 2020-04-08 09:33:00 Phatak, Bia Uni [facility] CBC WITH DIFF 2020-04-08 09:26:00 Katrina [facility] MAGNESIUM 2020-04-08 09:26:00 [facility] BASIC METABOLIC PANEL (NA, 2020-04-08 09:26:00 Yosvany Herndon [facility] K, CL, CO2, GLUCOSE, BUN, Medica l Branch CREATININE, CA) POCT GLUCOSE (AUTOMATED) 2020-04-08 04:24:00 Phatak, Bia Uni versity [facility] POCT GLUCOSE (AUTOMATED) 2020-04-08 00:36:00 Phatak, Bia Uni versity [facility] POCT GLUCOSE (AUTOMATED) 2020-04-07 21:24:00 Phatak, Bia Uni versity [facility] POCT GLUCOSE (AUTOMATED) 2020-04-07 16:49:00 Phatak, [facility] AC PANEL 20 + LACTIC ACID 2020-04-07 14:14:00 Yosvany Herndon [facility] LACTIC ACID WHOLE BLOOD 2020-04-07 13:53:00 Grant Cheema [facility] POCT GLUCOSE (AUTOMATED) 2020-04-07 12:50:00 Bia Pedro [facility] AC PANEL 20 + LACTIC ACID 2020-04-07 11:16:00 Yosvany Herndon Un [facility] MAGNESIUM 2020-04-07 08:48:00 Katrina [facility] BASIC METABOLIC PANEL (NA, 2020-04-07 08:48:00 Yosvany Herndon [facility] K, CL, CO2, GLUCOSE, BUN, Medica l Branch CREATININE, CA) CBC WITH DIFF 2020-04-07 08:48:00 Katrina [facility] XR CHEST 1 VW 2020-04-07 08:10:00 Rosaura Pena [facility] POCT GLUCOSE (AUTOMATED) 2020-04-07 04:36:00 Bia Pedro [facility] AC PANEL 21 + LACTIC ACID 2020-04-07 02:05:00 Bigg Lawton [facility] MRSA / MSSA SCREEN BY PCR, 2020-04-07 02:05:00 Grant Santana i [facility] BLOOD CULTURE SCREEN 2020-04-07 02:05:00 Neveah Kilgore [facility] POCT GLUCOSE (AUTOMATED) 2020-04-07 00:37:00 Bia Pedro [facility] HCV ANTIBODY 2020-04-06 23:44:00 [facility] (AUTOMATED) 2020-04-06 23:43:00 Bia Pedro [facility] HIV 1/2 AG-AB WITH REFLEX 2020-04-06 23:30:00 Grant Cheema [facility] POCT GLUCOSE (AUTOMATED) 2020-04-06 22:14:00 Bia Pedro [facility] ECHO ROUTINE W/DOPPLER 2020-04-06 20:25:55 Yosvany Herndon [facility] PROTHROMBIN TIME / INR 2020-04-06 19:00:00 Rosaura Pena [facility] ACTIVATED PARTIAL THRMPLAS 2020-04-06 19:00:00 Becky [facility] SELENA [facility] MAGNESIUM 2020-04-06 19:00:00 Becky [facility] BASIC METABOLIC PANEL (NA, 2020-04-06 19:00:[facility], CO2, GLUCOSE, BUN, [facility] CREATININE, CA) COMP. METABOLIC PANEL 2020-04-06 19:00:00 Yosvany Herndon [facility] ([id number]) [facility] CBC WITH DIFF 2020-04-06 19:00:00 Katrina [facility] AC PANEL 21 + LACTIC ACID 2020-04-06 18:59:00 Simi Dennis [facility] ABG+COOX+NA+K+GLU+CA2+ 2020-04-06 16:06:00 Bia Pedro [facility] INTUBATION 2020-04-06 16:04:59 Ana Syed [facility] XR CHEST 1 VW 2020-04-06 15:43:00 Katrina [facility] SURGICAL PATHOLOGY EXAM 2020-04-06 15:12:00 Juventino Mccabe [facility] CENTRAL LINE 2020-04-06 14:52:37 Cynthia Herring [facility] ARTERIAL LINE 2020-04-06 14:51:44 Ana Syed [facility] ASPIRATE OR ABSCESS 2020-04-06 14:50:29 Juventino Mccabe [facility] CULTURE(AEROBIC/ANAEROBIC) [facility] [employer] CULTURE 2020-04-06 14:50:29 Person [facility] FUNGUS (ROUTINE) CULTURE 2020-04-06 14:50:29 PersonJuventino [facility] ABG+COOX+NA+K+GLU+CA2+ 2020-04-06 14:46:00 Bia Pedro [facility] HB ABO GROUPING 2020-04-06 14:39:00 Dana Sampson [facility] EXPLORATORY LAPAROTOMY 2020-04-06 13:51:00 Juventino Mccabe [facility] URINE CULTURE 2020-04-06 13:48:00 Grant Cheema, [facility] XR KUB 2020-04-06 13:34:22 Grant Cheema, [facility] XR CHEST 1 VW 2020-04-06 13:34:22 Grant Cheema, [facility] MAGNESIUM 2020-04-06 11:47:00 Becky [facility] BASIC METABOLIC PANEL (NA, 2020-04-06 11:47:00 Becky [facility] K, CL, CO2, GLUCOSE, BUN, Cathryn [facility] CREATININE, CA) CBC WITH DIFF 2020-04-06 11:47:00 [facility] 2020-04-05 21:34:47 Grant Cheema, [facility] XR KUB 2020-04-05 19:41:00 Grant Cheema, [facility] MAGNESIUM 2020-04-05 09:44:00 [facility] BASIC METABOLIC PANEL (NA, 2020-04-05 09:44:00 Becky [facility] K, CL, CO2, GLUCOSE, BUN, Cath[facility] CREATININE, CA) CBC WITH DIFF 2020-04-05 09:44:00 [facility] 2020-04-04 10:09:00 Becky [facility] BASIC METABOLIC PANEL (NA, 2020-04-04 10:09:00 Becky [facility] K, CL, CO2, GLUCOSE, BUN, Cath[facility] CREATININE, CA) CBC WITH DIFF 2020-04-04 10:09:00 [facility]GICAL [facility]Y EXAM 2020-04-03 20:13:00 Mayela [facility] LAPAROSCOPIC COLECTOMY 2020-04-03 15:35:00 Mayela [facility] COLONOSCOPY 2020-04-03 15:35:00 Phacathy [facility] COLECTOMY 2020-04-03 15:35:00 Mayela [facility] MAGNESIUM 2020-04-03 09:20:00 Becky [facility] BASIC METABOLIC PANEL (NA, 2020-04-03 09:20:00 Becyk [facility] K, CL, CO2, GLUCOSE, BUN, [facility] CREATININE, CA) CBC WITH DIFF 2020-04-03 09:20:00 Becky [facility] HB ABO GROUPING 2020-04-02 22:45:00 Hugo Alfaro [facility] MAGNESIUM 2020-04-02 10:22:00 Becky [facility] BASIC METABOLIC PANEL (NA, 2020-04-02 10:22:00 Becky [facility] K, CL, CO2, GLUCOSE, BUN, [facility] CREATININE, CA) CBC WITH DIFF 2020-04-02 10:22:00 Becky [facility] COVID-19 (ID NOW RAPID 2020-04-01 23:02:00 Becky [facility] TEST[facility] URINALYSIS 2020-03-31 11:25:00 Alex Lopez [facility] CT ABDOMEN PELVIS W 2020-03-31 00:17:06 Alex Lopez [facility] CONTRAST [facility] XR CHEST 1 VW 2020-03-30 22:43:49 Colette Tngeri [facility] EKG-12 LEAD 2020-03-30 22:14:24 Doctor Unassigned, [facility] [place] [facility] PROTHROMBIN TIME / INR 2020-03-30 22:05:00 Alex Lopez [facility] ACTIVATED PARTIAL THRMPLAS 2020-03-30 22:05:00 Alex Lopez [facility] SELENA [facility] N-TERMINAL PRO-BNP 2020-03-30 22:05:00 Alex Lopez [facility] LIPASE 2020-03-30 22:05:00 Colette Tngeri [facility] TROPONIN I 2020-03-30 22:05:00 Colette [facility] HEPATIC FUNCTION PANEL 2020-03-30 22:05:00 Alex Lopez [facility] ([id number]) (ALB,T.PRO,BILI [facility] T,BU/BC,ALT,AST,ALK PHOS) BASIC METABOLIC PANEL (NA, 2020-03-30 22:05:00 Alex Lopez [facility] K, CL, CO2, GLUCOSE, BUN, Medica l Branch CREATININE, CA) CBC WITH DIFF 2020-03-30 22:05:00 Colette [facility] EKG-12 LEAD 2020-03-30 22:01:44 Colette [facility] HOSPITAL ADMISSION 2020-03-30 05:01:00 Doctor Unassigned, [facility] [place] [facility] MAGNESIUM 2020-03-26 09:57:00 Simin [facility] BASIC METABOLIC PANEL (NA, 2020-03-26 09:57:00 Simin [facility] K, CL, CO2, GLUCOSE, BUN, Medica l Branch CREATININE, CA) CBC WITH DIFF 2020-03-26 09:57:00 Simin [facility] LACTIC ACID WHOLE BLOOD 2020-03-26 04:09:00 [facility] (ID NOW RAPID 2020-03-26 02:01:00 Bernardo Donnelly [facility] TESTING) [facility] [place] CT ABDOMEN PELVIS W 2020-03-26 01:17:18 Bernardo Donnelly [facility] CONTRAST Medical Branch PHOSPHORUS 2020-03-26 00:39:00 Simin, [facility] MAGNESIUM 2020-03-26 00:39:00 Simin [facility] HEPATIC FUNCTION PANEL 2020-03-26 00:39:00 Bernardo Donnelly [facility] ([id number]) (ALB,T.PRO,BILI Medical Branch T,BU/BC,ALT,AST,ALK PHOS) BASIC METABOLIC PANEL (NA, 2020-03-26 00:39:00 Bernardo Donnelly [facility] K, CL, CO2, GLUCOSE, BUN, Medica l Branch CREATININE, CA) CBC WITH DIFF 2020-03-26 00:39:00 [facility] EXTRA TUBE LT. BLUE 2020-03-26 00:39:00 Bernardo Donnelly [facility] HOSPITAL ADMISSION 2020-03-25 05:01:00 Doctor Unassigned, [facility] [place] [facility] PROTHROMBIN TIME / INR 2020-03-03 04:27:00 Ori Persaud [facility] ACTIVATED PARTIAL THRMPLAS 2020-03-03 04:27:00 Zahraa Persaud se [facility] XR ABDOMEN ACUTE SERIES 2020-03-03 02:15:00 Shy [facility] PHOSPHORUS 2020-03-03 01:22:00 Ori Persaud [facility] MAGNESIUM 2020-03-03 01:22:00 Burt Avendaño [facility] HEPATIC FUNCTION PANEL 2020-03-03 01:22:00 Sabi Robledo [facility] ([id number]) (ALB,T.PRO,[facility] [place] T,BU/BC,ALT,AST,ALK PHOS) BASIC METABOLIC PANEL (NA, 2020-03-03 01:22:00 Sabi Robledo [facility] K, CL, CO2, GLUCOSE, BUN, [facility]ica [facility] [place] CREATININE, CA) CBC WITH DIFFERENTIAL 2020-03-03 01:22:00 Shy [facility] URINALYSIS 2020-03-03 01:22:00 Shy [facility] LACTIC ACID WHOLE BLOOD 2020-03-03 01:22:00 Shy [facility] COVID-19 (ID NOW RAPID 2020-03-03 01:22:00 Shy [facility] TESTING) Medical Branch GALV/CLC ONLY - URINE DRUG 2020-02-27 20:02:00 [facility] (IMMUNOASSAY) - [facility] COMPREHENSIVE DRUG SCREEN FREE T4 2020-02-27 17:48:00 [facility] THYROID STIMULATING 2020-02-27 17:48:00 [facility] HORMONE [facility] FREE T3 2020-02-27 17:48:00 [facility] ABDOMEN PELVIS W 2020-02-26 18:27:28 Alondra Fay [facility] CONTRAST [facility] COVID-19 (ID NOW RAPID 2020-02-26 06:41:00 Shy [facility] TESTING) Medical Branch XR ABDOMEN ACUTE SERIES 2020-02-26 04:48:30 Shy [facility] LIPASE 2020-02-26 03:35:00 Robledo, [facility] HEPATIC FUNCTION PANEL 2020-02-26 03:35:00 Robledo, [facility] ([id number]) (ALB,T.PRO,BILI [facility] T,BU/BC,ALT,AST,ALK PHOS) BASIC METABOLIC PANEL (NA, 2020-02-26 03:35:00 Sabi Robledo [facility] K, CL, CO2, GLUCOSE, BUN, [facility]ica [facility] [place] CREATININE, CA) CBC WITH DIFFERENTIAL 2020-02-26 03:35:00 Shy [facility] LACTIC ACID WHOLE BLOOD 2020-02-26 03:35:00 Shy [facility] EXTRA TUBE LT. BLUE 2020-02-26 03:35:00 Shy [facility] MAGNESIUM 2020-02-03 16:38:[address] [facility] BAS[facility]OLIC PANEL (NA, 2020-02-03 16:38:00 [facility] K, CL, CO2, GLUCOSE, BUN, [facility]ica [facility] [place] CREATININE, CA) XR KUB 2020-01-31 16:59:00 [facility] BAS[facility]OLIC PANEL (NA, 2020-01-31 06:15:00 [facility]ill [facility] K, CL, CO2, GLUCOSE, BUN, Medica [facility] [place] CREATININE, CA) CBC WITH DIFFERENTIAL 2020-01-31 06:15:00 Kirill Henson [facility] BASIC METABOLIC PANEL (NA, 2020-01-29 10:06:00 [facility], CL, CO2, GLUCOSE, BUN, [facility] CREATININE, CA) CBC WITH DIFFERENTIAL 2020-01-29 10:06:00 Nataly [facility] COVID-19 (PCR MOLECULAR 2020-01-29 03:56:00 Liz [facility] TESTING) [facility] LACTIC ACID WHOLE BLOOD 2020-01-29 03:55:00 Bernardo Donnelly [facility] EXTRA TUBE LAV 2020-01-29 03:55:00 Liz [facility] EXTRA TUBE LT. BLUE 2020-01-29 03:55:00 Liz [facility] EXTRA TUBE LT. GREEN 2020-01-29 03:55:00 Liz [facility] URINALYSIS 2020-01-29 01:35:00 Silvia Jurado [facility] COVID-19 (ID NOW RAPID 2020-01-29 01:32:00 Bernardo Donnelly [facility] TESTING) Medical Branch CT ABDOMEN PELVIS W 2020-01-28 23:53:23 [facility] LIPASE 2020-01-28 23:19:00 Silvia Jurado I [facility] HEPATIC FUNCTION PANEL 2020-01-28 23:19:00 Silvia Jurado [facility] ([id number]) (ALB,T.PRO,BILI [facility] [place] T,BU/BC,ALT,AST,ALK PHOS) BASIC METABOLIC PANEL (NA, 2020-01-28 23:19:00 Sondra Jurado I [facility] K, CL, CO2, GLUCOSE, BUN, Medica l Branch CREATININE, CA) CBC WITH DIFFERENTIAL 2020-01-28 23:19:00 JuradoSilvia rodriguez Marisol Yanez [facility] HOSPITAL ADMISSION 2020-01-28 05:01:00 Doctor Unassotilia, [facility] Name [facility] BASIC METABOLIC PANEL (NA, 2020-01-26 18:06:00 [facility], CL, CO2, GLUCOSE, BUN, Medica l Branch CREATININE, CA) MAGNESIUM 2020-01-26 08:17:00 Liz [facility] XR KUB 2020-01-26 06:00:00 Sindhu [facility] PHOSPHORUS 2020-01-25 09:43:00 Liz [facility] COVID-19 (ID NOW RAPID 2020-01-25 04:31:00 Shy [facility] TESTING) [facility] LACTIC ACID WHOLE BLOOD 2020-01-25 04:27:00 Shy [facility] CT ABDOMEN PELVIS W 2020-01-25 02:15:22 Shy [facility] CONTRAST [facility] URINALYSIS 2020-01-25 01:05:00 Shy [facility] LIPASE 2020-01-25 00:42:00 Shy [facility] HEPATIC FUNCTION PANEL 2020-01-25 00:42:00 Shy [facility] ([id number]) (ALB,T.PRO,BILI [facility] T,BU/BC,ALT,AST,ALK PHOS) BASIC METABOLIC PANEL (NA, 2020-01-25 00:42:00 Sabi Robledo [facility] K, CL, CO2, GLUCOSE, BUN, Medica l Branch CREATININE, CA) CBC WITH DIFFERENTIAL 2020-01-25 00:42:00 Shy [facility] [id number] 2020-01-09 00:00:00 BG.01 [facility] [place] EXTERNAL PROVIDER RECORDS 2019-12-28 05:01:00 Doctor Stephen, [facility] [place] [facility] [place] Plan of Care Planned Activity Planned Date Details Comments Source Future Scheduled 2029-03-23 Screening for malignant [facility] Test 00:00:00 neoplasm of colon Medical Ce [facility] (procedure) [code = 264126356] Future Scheduled 2029-03-23 Screening for malignant [facility] Test 00:00:00 neoplasm of colon Medical Ce [facility] (procedure) [code = [id number]] Future Scheduled 2029-03-23 Screening for malignant [facility] Test 00:00:00 neoplasm of colon Medical Ce [facility]ter (procedure) [code = [id number]] Future Scheduled 2029-03-23 Screening for malignant [facility] Test 00:00:00 neoplasm of colon Medical Ce nter (procedure) [code = 765890574] Future Scheduled 2029-03-23 Screening for malignant [facility] Test 00:00:00 neoplasm of colon Medical Ce [facility]ter (procedure) [code = [id number]] Future Scheduled 2029-03-23 Screening for malignant [facility] Test 00:00:00 neoplasm of colon Medical Ce [facility]ter (procedure) [code = [id number]] Future Scheduled 2029-03-23 Screening for malignant [facility] Test 00:00:00 neoplasm of colon Medical Ce nter (procedure) [code = [id number]] Future Scheduled 2029-03-23 Screening for malignant [facility] Test 00:00:00 neoplasm of colon Medical Ce nter (procedure) [code = 172993228] Future Scheduled 2029-03-23 Screening for malignant [facility] Test 00:00:00 neoplasm of colon Medical Ce nter (procedure) [code = 755347075] Future Scheduled 2029-03-23 Screening for malignant [facility] Test 00:00:00 neoplasm of colon Medical Ce nter (procedure) [code = 615501261] Future Scheduled 2029-03-23 Screening for malignant [facility] Test 00:00:00 neoplasm of colon Medical Ce nter (procedure) [code = 072762968] Future Scheduled 2029-03-23 Screening for malignant [facility] Test 00:00:00 neoplasm of colon Medical Ce nter (procedure) [code = 749286437] Future Scheduled 2029-03-23 Screening for malignant [facility] Test 00:00:00 neoplasm of colon Medical Ce nter (procedure) [code = 539124991] Future Scheduled 2029-03-23 Screening for malignant [facility] Test 00:00:00 neoplasm of colon Medical Ce nter (procedure) [code = [id number]] Future Scheduled 2029-03-23 Screening for malignant [facility] Test 00:00:00 neoplasm of colon Medical Ce nter (procedure) [code = 581725537] Future Scheduled 2029-03-23 Screening for malignant [facility] Test 00:00:00 neoplasm of colon Medical Ce nter (procedure) [code = 478038208] Future Scheduled 2029-03-23 Screening for malignant [facility] Test 00:00:00 neoplasm of colon Medical Ce nter (procedure) [code = [id number]] Future Scheduled 2029-03-23 Screening for malignant [facility] 00:00:00 neoplasm of colon [facility] (procedure) [code = 846453187] Future Scheduled 2029-03-23 Screening for malignant [facility] 00:00:00 neoplasm of colon [facility] (procedure) [code = [id number]] Future Scheduled 2029-03-23 Screening for malignant [facility] 00:00:00 neoplasm of colon [facility] (procedure) [code = [id number]] Future Scheduled 2029-03-23 Screening for malignant [facility] 00:00:00 neoplasm of colon [facility] (procedure) [code = 607793739] Future Scheduled 2029-03-23 Screening for malignant [facility] 00:00:00 neoplasm of colon [facility] (procedure) [code = 550549257] Future Scheduled 2029-03-23 Screening for malignant [facility] 00:00:00 neoplasm of colon [facility] (procedure) [code = 621345323] Future Scheduled 2029-03-23 Screening for malignant [facility] 00:00:00 neoplasm of colon [facility] (procedure) [code = 472744170] Future Scheduled 2029-03-23 Screening for malignant [facility] 00:00:00 neoplasm of colon [facility] (procedure) [code = 204488766] Future Scheduled 2029-03-23 Screening for malignant [facility] 00:00:00 neoplasm of colon [facility] (procedure) [code = 437751689] Future Scheduled 2029-03-23 Screening for malignant [facility] 00:00:00 neoplasm of colon [facility] (procedure) [code = 972015217] Future Scheduled 2029-03-23 Screening for malignant [facility] 00:00:00 neoplasm of colon [facility] (procedure) [code = 525511391] Future Scheduled 2029-03-23 Screening for malignant [facility] 00:00:00 neoplasm of colon [facility] (procedure) [code = 981329642] Future Scheduled 2029-03-23 Screening for malignant [facility] 00:00:00 neoplasm of colon [facility] (procedure) [code = 093808165] Future Scheduled 2029-03-23 Screening for malignant [facility] 00:00:00 neoplasm of colon [facility] (procedure) [code = 727580604] Future Scheduled 2029-03-23 Screening for malignant [facility] 00:00:00 neoplasm of colon [facility] (procedure) [code = 594307836] Future Scheduled 2029-03-23 Screening for malignant [facility] 00:00:00 neoplasm of colon [facility] (procedure) [code = 465687815] Future Scheduled 2029-03-23 Screening for malignant [facility] 00:00:00 neoplasm of colon [facility] (procedure) [code = 601654668] Future Scheduled 2029-03-23 Screening for malignant [facility] 00:00:00 neoplasm of colon [facility] (procedure) [code = 970779201] Future Scheduled 2029-03-23 Screening for malignant [facility] 00:00:00 neoplasm of colon [facility] (procedure) [code = 382438247] Future Scheduled 2029-03-23 Screening for malignant [facility] 00:00:00 neoplasm of colon [facility] (procedure) [code = 819254397] Future Scheduled 2029-03-23 Screening for malignant [facility] 00:00:00 neoplasm of colon [facility] (procedure) [code = 613887104] Future Scheduled 2029-03-23 Screening for malignant [facility] 00:00:00 neoplasm of colon [facility] (procedure) [code = 941410135] Future Scheduled 2029-03-23 Screening for malignant [facility] 00:00:00 neoplasm of colon [facility] (procedure) [code = 825067017] Future Scheduled 2029-03-23 Screening for malignant [facility] 00:00:00 neoplasm of colon [facility] (procedure) [code = 612317103] Future Scheduled 2029-03-23 Screening for malignant [facility] 00:00:00 neoplasm of colon [facility] (procedure) [code = 828030213] Future Scheduled 2029-03-23 Screening for malignant [facility] 00:00:00 neoplasm of colon [facility] (procedure) [code = 899952497] Future Scheduled 2029-03-23 Screening for malignant [facility] 00:00:00 neoplasm of colon [facility] (procedure) [code = 762559699] Future Scheduled 2029-03-23 Screening for malignant [facility] 00:00:00 neoplasm of colon [facility] (procedure) [code = 812571108] Future Scheduled 2029-03-23 Screening for malignant [facility] 00:00:00 neoplasm of colon [facility] (procedure) [code = 827337078] Future Scheduled 2029-03-23 Screening for malignant [facility] 00:00:00 neoplasm of colon [facility] (procedure) [code = 977285003] Future Scheduled 2029-03-23 Screening for malignant [facility] 00:00:00 neoplasm of colon [facility] (procedure) [code = 661813376] Future Scheduled 2029-03-23 Screening for malignant [facility] 00:00:00 neoplasm of colon [facility] Ce [facility] (procedure) [code = 499694165] Future Scheduled 2029-03-23 Screening for malignant [facility] 00:00:00 neoplasm of colon [facility] (procedure) [code = 434881041] Future Scheduled 2029-03-23 Screening for malignant [facility] 00:00:00 neoplasm of colon [facility] (procedure) [code = 932997137] Future Scheduled 2029-03-23 Screening for malignant [facility] 00:00:00 neoplasm of colon [facility] (procedure) [code = 631282760] Future Scheduled 2029-03-23 Screening for malignant [facility] 00:00:00 neoplasm of colon [facility] (procedure) [code = 628654424] Future Scheduled 2029-03-23 Screening for malignant [facility] 00:00:00 neoplasm of colon [facility] (procedure) [code = 769894823] Future Scheduled 2029-03-23 Screening for malignant [facility] 00:00:00 neoplasm of colon [facility] Ce [facility] (procedure) [code = 906598069] Future Scheduled 2023-05-24 [facility]enza [facility] 00:00:00 (>/= 19 yrs) [code = IMM Influenza Seasonal (>/= 19 yrs)] Future Scheduled 2023-05-24 [facility]MM Influenza [facility] 00:00:00 (>/= 19 yrs) [code = IMM Influenza Seasonal (>/= 19 yrs)] Future Scheduled 2023-04-24 Influenza Vaccine (#1) [facility]:00 [code = Influenza Vaccine [facility] (#1)] Future Scheduled 2023-04-24 INFLUENZA VACCINE (Season [facility] 00:00:00 Ended) [code = INFLUENZA Med ical Center VACCINE (Season Ended)] Future Scheduled 2023-03-[address] [facility] 00:00:00 Counseling and Screening [facility] ical Center (12+) [code = Tobacco Cessation Counseling and Screening (12+)] Future Scheduled 2022-08-[address] [facility] 00:00:00 (12+) [code = DEPRESSION Med ical Center SCREENING (12+)] Future Scheduled 2022-08-[address] [facility] 00:00:00 (12+) [code = DEPRESSION Med ical Center SCREENING (12+)] Future Scheduled 2022-08-[address] [facility] 00:00:00 (12+) [code = DEPRESSION [facility] ical Center SCREENING (12+)] Future Scheduled 2022-08-[address] [facility] 00:00:00 (12+) [code = DEPRESSION [facility] ical Center SCREENING (12+)] Future Scheduled 2022-08-[address] [facility] 00:00:00 (12+) [code = DEPRESSION Med ical Center SCREENING (12+)] Future Scheduled 2022-08-[address] [facility] 00:00:00 (12+) [code = DEPRESSION Med ical Center SCREENING (12+)] Future Scheduled 2022-08-[address] [facility] 00:00:00 (12+) [code = DEPRESSION Med ical Center SCREENING (12+)] Future Scheduled 2022-08-[address] [facility] 00:00:00 (12+) [code = DEPRESSION Med ical Center SCREENING (12+)] Future Scheduled 2022-08-[address] [facility] 00:00:00 (12+) [code = DEPRESSION [facility] ical Center SCREENING (12+)] Future Scheduled 2022-08-[address] [facility] 00:00:00 (12+) [code = DEPRESSION Med ical Center SCREENING (12+)] Future Scheduled 2022-08-[address] [facility] 00:00:00 (12+) [code = DEPRESSION Med ical Center SCREENING (12+)] Future Scheduled 2022-08-[address] [facility] 00:00:00 (12+) [code = DEPRESSION Med ical Center SCREENING (12+)] Future Scheduled 2022-05-24 IMM Influenza [facility] [code = INFLUENZA VACCINE [facility] (#1)] Future Scheduled 2022-04-24 INFLUENZA VACCINE (#1) [facility] [code = INFLUENZA VACCINE [facility] (#1)] Future Scheduled 2022-04-24 INFLUENZA VACCINE (#1) [facility] 00:00:00 [code = INFLUENZA VACCINE [facility] (#1)] Future Scheduled 2022-04-24 INFLUENZA VACCINE (#1) [facility] 00:00:00 [code = INFLUENZA VACCINE [facility] (#1)] Future Scheduled 2022-04-24 INFLUENZA VACCINE (#1) [facility] 00:00:00 [code = INFLUENZA VACCINE [facility] (#1)] Future Scheduled 2022-04-24 INFLUENZA VACCINE (#1) [facility] 00:00:00 [code = INFLUENZA VACCINE [facility] (#1)] Future Scheduled 2022-04-24 INFLUENZA VACCINE (#1) [facility] 00:00:00 [code = INFLUENZA VACCINE [facility] (#1)] Future Scheduled 2022-04-24 INFLUENZA VACCINE (#1) [facility] 00:00:00 [code = INFLUENZA VACCINE [facility] (#1)] Future Scheduled 2022-04-24 INFLUENZA VACCINE (#1) [facility] 00:00:00 [code = INFLUENZA VACCINE [facility] (#1)] Future Scheduled 2022-04-24 INFLUENZA VACCINE (#1) [facility] 00:00:00 [code = INFLUENZA VACCINE [facility] (#1)] Future Scheduled 2022-04-24 INFLUENZA VACCINE (#1) [facility] 00:00:00 [code = INFLUENZA VACCINE [facility] (#1)] Future Scheduled 2022-04-24 INFLUENZA VACCINE (#1) [facility] 00:00:00 [code = INFLUENZA VACCINE [facility] (#1)] Future Scheduled 2022-04-24 INFLUENZA VACCINE (#1) [facility] 00:00:00 [code = INFLUENZA VACCINE [facility] (#1)] Future Scheduled 2022-04-24 INFLUENZA VACCINE (#1) [facility] 00:00:00 [code = INFLUENZA VACCINE [facility] (#1)] Future Scheduled 2022-04-24 INFLUENZA VACCINE (#1) [facility] 00:00:00 [code = INFLUENZA VACCINE [facility] (#1)] Future Scheduled 2022-04-24 INFLUENZA VACCINE (#1) [facility] 00:00:00 [code = INFLUENZA VACCINE [facility] (#1)] Future Scheduled 2022-04-24 INFLUENZA VACCINE (#1) [facility] 00:00:00 [code = INFLUENZA VACCINE [facility] (#1)] Future Scheduled 2022-04-24 INFLUENZA VACCINE (#1) [facility] 00:00:00 [code = INFLUENZA VACCINE [facility] (#1)] Future Scheduled 2022-04-24 INFLUENZA VACCINE (#1) [facility] 00:00:00 [code = INFLUENZA VACCINE [facility] (#1)] Future Scheduled 2022-04-24 INFLUENZA VACCINE (#1) [facility] 00:00:00 [code = INFLUENZA VACCINE [facility] (#1)] Future Scheduled 2022-04-24 INFLUENZA VACCINE (#1) [facility] 00:00:00 [code = INFLUENZA VACCINE [facility] (#1)] Future Scheduled 2022-04-24 INFLUENZA VACCINE (#1) [facility] 00:00:00 [code = INFLUENZA VACCINE [facility] (#1)] Future Scheduled 2022-04-24 INFLUENZA VACCINE (#1) [facility] 00:00:00 [code = INFLUENZA VACCINE [facility] (#1)] Future Scheduled 2022-04-24 INFLUENZA VACCINE (#1) [facility] 00:00:00 [code = INFLUENZA VACCINE [facility] (#1)] Future Scheduled 2022-04-24 INFLUENZA VACCINE (#1) [facility] 00:00:00 [code = INFLUENZA VACCINE [facility] (#1)] Future Scheduled 2021-08-[address] [facility] 00:00:00 (12+) [code = DEPRESSION Med ical Center SCREENING (12+)] Future Scheduled 2021-08-[address] [facility] 00:00:00 (12+) [code = DEPRESSION Med ical Center SCREENING (12+)] Future Scheduled 2021-08-[address] [facility] 00:00:00 (12+) [code = DEPRESSION Med ical Center SCREENING (12+)] Future Scheduled 2021-08-[address] [facility] 00:00:00 (12+) [code = DEPRESSION [facility] ical Center SCREENING (12+)] Future Scheduled 2021-08-[address] [facility] 00:00:00 (12+) [code = DEPRESSION Med ical Center SCREENING (12+)] Future Scheduled 2021-08-[address] [facility] 00:00:00 (12+) [code = DEPRESSION [facility] ical Center SCREENING (12+)] Future Scheduled 2021-08-[address] [facility] 00:00:00 (12+) [code = DEPRESSION [facility] ical Center SCREENING (12+)] Future Scheduled 2021-08-[address] [facility] 00:00:00 (12+) [code = DEPRESSION [facility] ical Center SCREENING (12+)] Future Scheduled 2021-08-[address] [facility] 00:00:00 (12+) [code = DEPRESSION Med ical Center SCREENING (12+)] Future Scheduled 2021-08-[address] [facility] 00:00:00 (12+) [code = DEPRESSION Med ical Center SCREENING (12+)] Future Scheduled 2021-08-[address] [facility] 00:00:00 (12+) [code = DEPRESSION [facility] ical Center SCREENING (12+)] Future Scheduled 2021-08-[address] [facility] 00:00:00 (12+) [code = DEPRESSION Med ical Center SCREENING (12+)] Future Scheduled 2021-08-[address] [facility] 00:00:00 (12+) [code = DEPRESSION [facility] ical Center SCREENING (12+)] Future Scheduled 2021-08-[address] [facility] 00:00:00 (12+) [code = DEPRESSION Med ical Center SCREENING (12+)] Future Scheduled 2021-08-[address] [facility] 00:00:00 (12+) [code = DEPRESSION Med ical Center SCREENING (12+)] Future Scheduled 2020-04-24 INFLUENZA VACCINE (#1) [facility]:00:00 [code = INFLUENZA VACCINE [facility] (#1)] Future Scheduled 2020-02-14 Screening for malignant [facility] 00:00:00 neoplasm of colon (procedure) [code = [id number]] Future Scheduled 2020-02-14 Screening for malignant [facility] 00:00:00 neoplasm of colon (procedure) [code = 323412087] Future Scheduled 2020-02-14 Screening for malignant [facility] 00:00:00 neoplasm of colon (procedure) [code = 785788060] Future Scheduled 2020-02-14 Screening for malignant [facility] 00:00:00 neoplasm of colon (procedure) [code = 326816557] Future Scheduled 2020-02-14 Screening for malignant [facility] 00:00:00 neoplasm of colon (procedure) [code = 614666420] Future Scheduled 2020-02-14 Screening for malignant [facility] 00:00:00 neoplasm of colon (procedure) [code = 645215071] Future Scheduled 2020-02-14 Screening for malignant [facility] 00:00:00 neoplasm of colon (procedure) [code = 539869875] Future Scheduled 2020-02-14 Screening for malignant [facility] 00:00:00 neoplasm of colon (procedure) [code = 419844862] Future Scheduled 2020-02-14 Screening for malignant [facility] 00:00:00 neoplasm of colon (procedure) [code = 993412397] Future Scheduled 2020-02-14 Screening for malignant [facility] 00:00:00 neoplasm of colon (procedure) [code = 744524883] Future Scheduled 2020-02-14 Screening for malignant [facility] 00:00:00 neoplasm of colon (procedure) [code = 694896471] Future Scheduled 2020-02-14 Screening for malignant [facility] 00:00:00 neoplasm of colon (procedure) [code = 778753029] Future Scheduled 2020-02-14 Screening for malignant [facility] 00:00:00 neoplasm of colon (procedure) [code = 332264941] Future Scheduled 2020-02-14 Screening for malignant [facility] 00:00:00 neoplasm of colon (procedure) [code = 239097798] Future Scheduled 2020-02-14 Screening for malignant [facility] 00:00:00 neoplasm of colon (procedure) [code = 777560169] Future Scheduled 2020-02-14 Screening for malignant [facility] 00:00:00 neoplasm of colon (procedure) [code = 712577928] Future Scheduled 2020-02-14 Screening for malignant [facility] 00:00:00 neoplasm of colon (procedure) [code = 431089837] Future Scheduled 2020-02-14 Screening for malignant [facility] 00:00:00 neoplasm of colon (procedure) [code = 194181874] Future Scheduled 2020-02-14 Screening for malignant [facility] 00:00:00 neoplasm of colon (procedure) [code = 125487628] Future Scheduled 2020-02-14 Screening for malignant [facility] 00:00:00 neoplasm of colon (procedure) [code = 056134405] Future Scheduled 2020-02-14 Screening for malignant [facility] 00:00:00 neoplasm of colon (procedure) [code = 245698392] Future Scheduled 2020-02-14 Screening for malignant [facility] 00:00:00 neoplasm of colon (procedure) [code = 461534048] Future Scheduled 2020-02-14 Screening for malignant [facility] 00:00:00 neoplasm of colon (procedure) [code = 741341127] Future Scheduled 2020-02-14 Screening for malignant [facility] 00:00:00 neoplasm of colon (procedure) [code = 159343624] Future Scheduled 2020-02-14 Screening for malignant [facility] 00:00:00 neoplasm of colon (procedure) [code = 456647235] Future Scheduled 2020-02-14 SHINGLES VACCINES (1 of [...] [facility] 00:00:00 [code = 42292222] [facility]ter Future Scheduled 2005 Lipid panel (procedure) [facility] 00:00:00 [code = 56487221] Medical Ce [facility]ter Future Scheduled 2005 Lipid panel (procedure) [facility] 00:00:00 [code = 58718507] Medical Ce [facility]ter Future Scheduled 2005 Lipid panel (procedure) [facility] 00:00:00 [code = 64049451] Medical Ce [facility]ter Future Scheduled 2005 Lipid panel (procedure) [facility] 00:00:00 [code = 54523401] Medical Ce [facility]ter Future Scheduled 2005 Lipid panel (procedure) [facility] 00:00:00 [code = 37146012] Medical Ce [facility]ter Future Scheduled 2005 Lipid panel (procedure) [facility] 00:00:00 [code = 36586832] Medical Ce [facility]ter Future Scheduled 2005 Lipid panel (procedure) [facility] 00:00:00 [code = 09034905] Medical Ce [facility]ter Future Scheduled 2005 Lipid panel (procedure) [facility] 00:00:00 [code = 10094201] Medical Ce [facility]ter Future Scheduled 2005 Lipid panel (procedure) [facility] 00:00:00 [code = 35923018] Medical Ce [facility]ter Future Scheduled 2005 Lipid panel (procedure) [facility] 00:00:00 [code = 01566764] Medical Ce [facility]ter Future Scheduled 2005 Lipid panel (procedure) [facility] 00:00:00 [code = 54480467] Medical Ce [facility]ter Future Scheduled 2005 Lipid panel (procedure) [facility] 00:00:00 [code = 79290245] Medical Ce [facility]ter Future Scheduled 2005 Lipid panel (procedure) [facility] 00:00:00 [code = 82586257] Medical Ce [facility]ter Future Scheduled 2005 Lipid panel (procedure) [facility] 00:00:00 [code = 11982315] Medical Ce [facility]ter Future Scheduled 2005 Lipid panel (procedure) [facility] 00:00:00 [code = 13691068] Medical Ce [facility]ter Future Scheduled 2005 Lipid panel (procedure) [facility] 00:00:00 [code = 31005389] Medical Ce nter Future Scheduled 2005 Lipid panel (procedure) [facility] 00:00:00 [code = 02165488] Medical Ce [facility]ter Future Scheduled 2005 Lipid panel (procedure) [facility] 00:00:00 [code = 12612650] Medical Ce [facility]ter Future Scheduled 2005 Lipid panel (procedure) [facility] 00:00:00 [code = 95403273] Medical Ce [facility]ter Future Scheduled 2005 Lipid panel (procedure) [facility] 00:00:00 [code = 06469469] Medical Ce [facility]ter Future Scheduled 2005 Lipid panel (procedure) [facility] 00:00:00 [code = 94830332] Medical Ce [facility]ter Future Scheduled 2005 Lipid panel (procedure) [facility] 00:00:00 [code = 35597934] Medical Ce [facility]ter Future Scheduled 2005 Lipid panel (procedure) [facility] 00:00:00 [code = 48462346] Medical Ce [facility]ter Future Scheduled 2005 Lipid panel (procedure) [facility] 00:00:00 [code = 07199422] Medical Ce [facility]ter Future Scheduled 2005 Lipid panel (procedure) [facility] 00:00:00 [code = 44350005] Medical Ce [facility]ter Future Scheduled 2005 Lipid panel (procedure) [facility] 00:00:00 [code = 85173994] Medical Ce [facility]ter Future Scheduled 2005 Lipid panel (procedure) [facility] 00:00:00 [code = 13026426] Medical Ce nter Future Scheduled 1989 DTAP/TDAP/TD VACCINES ([address] [facility] 00:00:00 - Tdap) [code = [facility] Cent [facility] DTAP/TDAP/TD VACCINES (1 - Tdap)] Future Scheduled 1989 DTAP/TDAP/TD VACCINES ([address] [facility] 00:00:00 - Tdap) [code = Medical Cent er DTAP/TDAP/TD VACCINES (1 - Tdap)] Future Scheduled 1989 DTAP/TDAP/TD VACCINES ([address] [facility] 00:00:00 - Tdap) [code = Medical Cent er DTAP/TDAP/TD VACCINES (1 - Tdap)] Future Scheduled 1989 DTAP/TDAP/TD VACCINES ([address] [facility] 00:00:00 - Tdap) [code = Medical Cent er DTAP/TDAP/TD VACCINES (1 - Tdap)] Future Scheduled 1989 DTAP/TDAP/TD VACCINES ([address] [facility] 00:00:00 - Tdap) [code = Medical Cent er DTAP/TDAP/TD VACCINES (1 - Tdap)] Future Scheduled 1989 DTAP/TDAP/TD VACCINES ([address] [facility] 00:00:00 - Tdap) [code = [facility] Cent [facility] DTAP/TDAP/TD VACCINES (1 - Tdap)] Future Scheduled 1989 DTAP/TDAP/TD VACCINES ([address] [facility] 00:00:00 - Tdap) [code = [facility] Cent [facility] DTAP/TDAP/TD VACCINES (1 - Tdap)] Future Scheduled 1989 DTAP/TDAP/TD VACCINES ([address] [facility] 00:00:00 - Tdap) [code = [facility] Cent [facility] DTAP/TDAP/TD VACCINES (1 - Tdap)] Future Scheduled 1989 DTAP/TDAP/TD VACCINES ([address] [facility] 00:00:00 - Tdap) [code = [facility] Cent [facility] DTAP/TDAP/TD VACCINES (1 - Tdap)] Future Scheduled 1989 DTAP/TDAP/TD VACCINES ([address] [facility] 00:00:00 - Tdap) [code = [facility] Cent [facility] DTAP/TDAP/TD VACCINES (1 - Tdap)] Future Scheduled 1989 DTAP/TDAP/TD VACCINES ([address] [facility] 00:00:00 - Tdap) [code = [facility] Cent [facility] DTAP/TDAP/TD VACCINES (1 - Tdap)] Future Scheduled 1989 DTAP/TDAP/TD VACCINES ([address] [facility] 00:00:00 - Tdap) [code = [facility] Cent [facility] DTAP/TDAP/TD VACCINES (1 - Tdap)] Future Scheduled 1989 DTAP/TDAP/TD VACCINES ([address] [facility] 00:00:00 - Tdap) [code = [facility] Cent er DTAP/TDAP/TD VACCINES (1 - Tdap)] Future Scheduled 1989 DTAP/TDAP/TD VACCINES ([address] [facility] 00:00:00 - Tdap) [code = [facility] Cent er DTAP/TDAP/TD VACCINES (1 - Tdap)] Future Scheduled 1989 DTAP/TDAP/TD VACCINES ([address] [facility] 00:00:00 - Tdap) [code = [facility] DTAP/TDAP/TD VACCINES (1 - Tdap)] Future Scheduled 1989 DTAP/TDAP/TD VACCINES ([address] [facility] 00:00:00 - Tdap) [code = [facility] Cent [facility] DTAP/TDAP/TD VACCINES (1 - Tdap)] Future Scheduled 1989 DTAP/TDAP/TD VACCINES ([address] [facility] 00:00:00 - Tdap) [code = [facility] Cent er DTAP/TDAP/TD VACCINES (1 - Tdap)] Future Scheduled 1989 DTAP/TDAP/TD VACCINES ([address] [facility] 00:00:00 - Tdap) [code = [facility] Cent er DTAP/TDAP/TD VACCINES (1 - Tdap)] Future Scheduled 1989 DTAP/TDAP/TD VACCINES ([address] [facility] 00:00:00 - Tdap) [code = [facility] Cent er DTAP/TDAP/TD VACCINES (1 - Tdap)] Future Scheduled 1989 DTAP/TDAP/TD VACCINES ([address] [facility] 00:00:00 - Tdap) [code = [facility] er DTAP/TDAP/TD VACCINES (1 - Tdap)] Future Scheduled 1989 DTAP/TDAP/TD VACCINES ([address] [facility] 00:00:00 - Tdap) [code = [facility] DTAP/TDAP/TD VACCINES (1 - Tdap)] Future Scheduled 1989 DTAP/TDAP/TD VACCINES ([address] [facility] 00:00:00 - Tdap) [code = [facility] Cent er DTAP/TDAP/TD VACCINES (1 - Tdap)] Future Scheduled 1989 DTAP/TDAP/TD VACCINES ([address] [facility] 00:00:00 - Tdap) [code = [facility] Cent er DTAP/TDAP/TD VACCINES (1 - Tdap)] Future Scheduled 1989 DTAP/TDAP/TD VACCINES ([address] [facility] 00:00:00 - Tdap) [code = [facility] Cent er DTAP/TDAP/TD VACCINES (1 - Tdap)] Future Scheduled 1989 DTAP/TDAP/TD VACCINES ([address] [facility] 00:00:00 - Tdap) [code = Medical Cent er DTAP/TDAP/TD VACCINES (1 - Tdap)] Future Scheduled 1989 DTAP/TDAP/TD VACCINES ([address] [facility] 00:00:00 - Tdap) [code = [facility] Cent er DTAP/TDAP/TD VACCINES (1 - Tdap)] Future Scheduled 1989 DTAP/TDAP/TD VACCINES ([address] [facility] 00:00:00 - Tdap) [code = [facility] Cent [facility] DTAP/TDAP/TD VACCINES (1 - Tdap)] Future Scheduled [...] [facility]PAT[facility]IS [facility] S[facility]] Future Scheduled [address] [facility] 00:00:00 virus screening [facility] (procedure) [code = [id number]] Future Scheduled [address] [facility] 00:00:00 [facility] (12+) [code = Tobacco Cessation Counseling and Screening (12+)] Future Scheduled [address] [facility] 00:00:00 [facility] (12+) [code = Tobacco Cessation Counseling and Screening (12+)] Future Scheduled [address] [facility] 00:00:00 Counseling and Screening [facility] Center (12+) [code = Tobacco Cessation Counseling and Screening (12+)] Future Scheduled [address] [facility] 00:00:00 Counseling and Screening [facility] (12+) [code = Tobacco Cessation Counseling and Screening (12+)] Future Scheduled [address] [facility] 00:00:00 Counseling and Screening [facility] (12+) [code = Tobacco Cessation Counseling and Screening (12+)] Future Scheduled [address] [facility] 00:00:00 Counseling and Screening [facility] (12+) [code = Tobacco Cessation Counseling and Screening (12+)] Future Scheduled [address] [facility] 00:00:00 Counseling and Screening [facility] (12+) [code = Tobacco Cessation Counseling and Screening (12+)] Future Scheduled [address] [facility] 00:00:00 Counseling and Screening [facility] (12+) [code = Tobacco Cessation Counseling and Screening (12+)] Future Scheduled [address] [facility] 00:00:00 Counseling and Screening [facility] (12+) [code = Tobacco Cessation Counseling and Screening (12+)] Future Scheduled [address] [facility] 00:00:00 Counseling and Screening [facility] (12+) [code = Tobacco Cessation Counseling and Screening (12+)] Future Scheduled [address] [facility] 00:00:00 Counseling and Screening [facility] (12+) [code = Tobacco Cessation Counseling and Screening (12+)] Future Scheduled [address] [facility] 00:00:00 Counseling and Screening [facility] (12+) [code = Tobacco Cessation Counseling and Screening (12+)] Future Scheduled 1970 COVID-19 VACCINE (#1) [facility] 00:[facility]:00 [code = COVID-19 VACCINE [facility] (#1)] Future Scheduled 1970 COVID-19 VACCINE (#1) [facility]:00 [code = COVID-19 VACCINE [facility] (#1)] Future Scheduled 1970 COVID-19 VACCINE (#1) [facility]:00 [code = COVID-19 VACCINE [facility] (#1)] Future Scheduled 1970 COVID-19 VACCINE (#1) [facility] 00:00:00 [code = COVID-19 VACCINE [facility] (#1)] Future Scheduled 1970 COVID-19 VACCINE (#1) [facility] 00:00:00 [code = COVID-19 VACCINE [facility] (#1)] Future Scheduled 1970 COVID-19 VACCINE (#1) [facility]:00 [code = COVID-19 VACCINE [facility] (#1)] Future Scheduled 1970 COVID-19 VACCINE (#1) [facility] 00:[facility]:00 [code = COVID-19 VACCINE [facility] (#1)] Future Scheduled 1970 COVID-19 VACCINE (#1) [facility]:00:00 [code = COVID-19 VACCINE [facility] (#1)] Future Scheduled 1970 COVID-19 VACCINE (#1) [facility] 00:00:00 [code = COVID-19 VACCINE [facility] (#1)] Future Scheduled 1970 COVID-19 VACCINE (#1) [facility] 00:00:00 [code = COVID-19 VACCINE [facility] (#1)] Future Scheduled 1970 COVID-19 VACCINE (#1) [facility] 00:00:00 [code = COVID-19 VACCINE [facility] (#1)] Future Scheduled 1970 COVID-19 VACCINE (#1) [facility] 00:00:00 [code = COVID-19 VACCINE [facility] (#1)] Future Scheduled 1970 COVID-19 VACCINE (#1) [facility] 00:00:00 [code = COVID-19 VACCINE [facility] (#1)] Future Scheduled 1970 COVID-19 VACCINE (#1) [facility] 00:00:00 [code = COVID-19 VACCINE [facility] (#1)] Future Scheduled 1970 COVID-19 VACCINE (#1) [facility] 00:00:00 [code = COVID-19 VACCINE [facility] (#1)] Future Scheduled 1970 COVID-19 VACCINE (#1) [facility]:00:00 [code = COVID-19 VACCINE [facility] (#1)] Future Scheduled 1970 COVID-19 VACCINE (#1) [facility] 00:00:00 [code = COVID-19 VACCINE [facility] (#1)] Future Scheduled 1970 COVID-19 VACCINE (#1) [facility] 00:00:00 [code = COVID-19 VACCINE [facility] (#1)] Future Scheduled 1970 COVID-19 VACCINE (#1) [facility] 00:00:00 [code = COVID-19 VACCINE [facility] (#1)] Future Scheduled 1970 COVID-19 VACCINE (#1) [facility] 00:00:00 [code = COVID-19 VACCINE [facility] (#1)] Future Scheduled 1970 COVID-19 VACCINE (#1) [facility] 00:00:00 [code = COVID-19 VACCINE [facility] (#1)] Future Scheduled 1970 COVID-19 VACCINE (#1) [facility] 00:00:00 [code = COVID-19 VACCINE [facility] (#1)] Future Scheduled 1970 COVID-19 VACCINE (#1) [facility] 00:00:00 [code = COVID-19 VACCINE [facility] (#1)] Future Scheduled 1970 COVID-19 VACCINE (#1) [facility] 00:00:00 [code = COVID-19 VACCINE [facility] (#1)] Future Scheduled 1970 COVID-19 VACCINE (#1) [facility] 00:00:00 [code = COVID-19 VACCINE [facility] (#1)] Future Scheduled 1970 COVID-19 VACCINE (#1) [facility] 00:00:00 [code = COVID-19 VACCINE [facility] (#1)] Future Scheduled 1970 COVID-19 Vaccine (#1) [facility] [code = COVID-19 VACCINE [facility] (#1)] Future Scheduled 1970 Screening for malignant [facility] 00:00:00 neoplasm of colon Medical Ce nter (procedure) [code = [id number]] Future Scheduled 1970 Screening for malignant [facility] 00:00:00 neoplasm of colon Medical Ce nter (procedure) [code = [id number]] Future Scheduled 1970 Sigmoidoscopy [code = [facility] S[facility]oscopy] [facility] Cent[facility] Future Scheduled 1970 CT Colonography (combo) [facility] 00:00:00 [code = CT Colonography [facility] (combo)] Future Scheduled 1970 Screening for malignant [facility] 00:00:00 neoplasm of colon Medical Ce [facility]ter (procedure) [code = [id number]] Future Scheduled 1970 Screening for malignant [facility] 00:00:00 neoplasm of colon Medical Ce [facility]ter (procedure) [code = 230397838] Future Scheduled 1970 Sigmoidoscopy [code = [facility] Sigmoidoscopy] Medical Cent[facility] Future Scheduled 1970 CT Colonography (combo) [facility] 00:00:00 [code = CT Colonography [facility] (combo)] Future Scheduled 1970 Screening for malignant [facility] 00:00:00 neoplasm of colon Medical Ce [facility]ter (procedure) [code = 449974662] Future Scheduled 1970 Screening for malignant [facility] 00:00:00 neoplasm of colon Medical Ce [facility] (procedure) [code = 261173214] Future Scheduled 1970 Sigmoidoscopy [code = [facility] S[facility]oidoscopy] [facility] Cent[facility] Future Scheduled 1970 CT Colonography (combo) [facility] 00:00:00 [code = CT [facility] ([facility])] Future Scheduled 1970 Screening for malignant [facility] 00:00:00 neoplasm of colon Medical Ce [facility]ter (procedure) [code = 078542112] Future Scheduled 1970 Screening for malignant [facility] 00:00:00 neoplasm of colon Medical Ce [facility] (procedure) [code = 846220379] Future Scheduled 1970 Sigmoidoscopy [code = [facility] 00:[facility] Sigmoidoscopy] [facility] Cent[facility] Future Scheduled 1970 CT Colonography (combo) [facility] 00:00:00 [code = CT [facility]ography [facility] ([facility])] Future Scheduled 1970 Screening for malignant [facility] 00:00:00 neoplasm of colon Medical Ce [facility] (procedure) [code = 074736191] Future Scheduled 1970 Screening for malignant [facility] 00:00:00 neoplasm of colon Medical Ce [facility]ter (procedure) [code = 122584807] Future Scheduled 1970 Sigmoidoscopy [code = [facility] Sigmoidoscopy] [facility] Cent[facility] Future Scheduled 1970 CT Colonography (combo) [facility] 00:00:00 [code = CT [facility]ography [facility] ([facility])] Future Scheduled 1970 Screening for malignant [facility] 00:00:00 neoplasm of colon Medical Ce [facility] (procedure) [code = 777006921] Future Scheduled 1970 Screening for malignant [facility] 00:00:00 neoplasm of colon Medical Ce [facility] (procedure) [code = 953904367] Future Scheduled 1970 Sigmoidoscopy [code = [facility] Sigmoidoscopy] [facility] Cent[facility] Future Scheduled 1970 CT Colonography (combo) [facility] 00:00:00 [code = CT [facility]ography [facility] ([facility])] Future Scheduled 1970 Screening for malignant [facility] 00:00:00 neoplasm of colon Medical Ce [facility]ter (procedure) [code = 088769108] Future Scheduled 1970 Screening for malignant [facility] 00:00:00 neoplasm of colon Medical Ce [facility]ter (procedure) [code = 687623880] Future Scheduled 1970 Sigmoidoscopy [code = [facility] 00:[facility] Sigmoidoscopy] Medical Cent[facility] r Future Scheduled 1970 CT Colonography (combo) [facility] 00:00:00 [code = CT [facility]ography [facility] (com[facility])] Future Scheduled 1970 Screening for malignant [facility] 00:00:00 neoplasm of colon Medical Ce [facility]ter (procedure) [code = 667382926] Future Scheduled 1970 Screening for malignant [facility] 00:00:00 neoplasm of colon Medical Ce [facility]ter (procedure) [code = 334598524] Future Scheduled 1970 Sigmoidoscopy [code = [facility] S[facility]oidoscopy] Medical Cent[facility] r Future Scheduled 1970 CT Colonography (combo) [facility] 00:00:00 [code = CT [facility]ography [facility] (com[facility])] Future Scheduled 1970 Screening for malignant [facility] 00:00:00 neoplasm of colon Medical Ce [facility]ter (procedure) [code = 602807389] Future Scheduled 1970 Screening for malignant [facility] 00:00:00 neoplasm of colon Medical Ce [facility]ter (procedure) [code = 381402502] Future Scheduled 1970 Sigmoidoscopy [code = [facility] Sigmoidoscopy] Medical Cent[facility] Future Scheduled 1970 CT Colonography (combo) [facility] 00:00:00 [code = CT [facility]ography [facility] ([facility])] Future Scheduled 1970 Screening for malignant [facility] 00:00:00 neoplasm of colon Medical Ce [facility]ter (procedure) [code = 122610181] Future Scheduled 1970 Screening for malignant [facility] 00:00:00 neoplasm of colon Medical Ce [facility]ter (procedure) [code = 479270491] Future Scheduled 1970 Sigmoidoscopy [code = [facility] S[facility]oidoscopy] Medical Cent[facility] r Future Scheduled 1970 CT Colonography (combo) [facility] 00:00:00 [code = CT [facility]ography [facility] ([facility])] Future Scheduled 1970 Screening for malignant [facility] 00:00:00 neoplasm of colon Medical Ce [facility]ter (procedure) [code = 091292896] Future Scheduled 1970 Screening for malignant [facility] 00:00:00 neoplasm of colon Medical Ce [facility]ter (procedure) [code = 610004819] Future Scheduled 1970 Sigmoidoscopy [code = [facility] Sigmoidoscopy] Medical Cent[facility] r Future Scheduled 1970 CT Colonography (combo) [facility] 00:00:00 [code = CT [facility]ography [facility] ([facility])] Future Scheduled 1970 Screening for malignant [facility] 00:00:00 neoplasm of colon Medical Ce [facility]ter (procedure) [code = 011800940] Future Scheduled 1970 Screening for malignant [facility] 00:00:00 neoplasm of colon Medical Ce [facility]ter (procedure) [code = 451713067] Future Scheduled 1970 Sigmoidoscopy [code = [facility] Sigmoidoscopy] Medical Cent[facility] Future Scheduled 1970 CT Colonography (combo) [facility] 00:00:00 [code = CT [facility]ography [facility] ([facility])] Future Scheduled 1970 Screening for malignant [facility] 00:00:00 neoplasm of colon Medical Ce [facility]ter (procedure) [code = 635044296] Future Scheduled 1970 Screening for malignant [facility] 00:00:00 neoplasm of colon Medical Ce [facility]ter (procedure) [code = 329806864] Future Scheduled 1970 Sigmoidoscopy [code = [facility] Sigmoidoscopy] Medical Cent[facility] Future Scheduled 1970 CT Colonography (combo) [facility] 00:00:00 [code = CT [facility]ography [facility] ([facility])] Future Scheduled 1970 Screening for malignant [facility] 00:00:00 neoplasm of colon Medical Ce nter (procedure) [code = 551367078] Future Scheduled 1970 Screening for malignant [facility] 00:00:00 neoplasm of colon Medical Ce nter (procedure) [code = 149382988] Future Scheduled 1970 Sigmoidoscopy [code = [facility] Sigmoidoscopy] Medical Cent[facility] r Future Scheduled 1970 CT Colonography (combo) [facility] 00:00:00 [code = CT [facility]ography [facility] ([facility])] Future Scheduled 1970 Screening for malignant [facility] 00:00:00 neoplasm of colon Medical Ce nter (procedure) [code = 415685044] Future Scheduled 1970 Screening for malignant [facility] 00:00:00 neoplasm of colon Medical Ce nter (procedure) [code = 875142062] Future Scheduled 1970 Sigmoidoscopy [code = [facility] Sigmoidoscopy] Medical Cent[facility] Future Scheduled 1970 CT Colonography (combo) [facility] 00:00:00 [code = CT [facility]ography [facility] (com[facility])] Future Scheduled 1970 Screening for malignant [facility] 00:00:00 neoplasm of colon Medical Ce nter (procedure) [code = 531687894] Future Scheduled 1970 Screening for malignant [facility] 00:00:00 neoplasm of colon Medical Ce nter (procedure) [code = 109766979] Future Scheduled 1970 Sigmoidoscopy [code = [facility] Sigmoidoscopy] Medical Cent[facility] Future Scheduled 1970 CT Colonography (combo) [facility] 00:00:00 [code = CT [facility]ography [facility] ([facility])] Future Scheduled 1970 Screening for malignant [facility] 00:00:00 neoplasm of colon Medical Ce nter (procedure) [code = 138372453] Future Scheduled 1970 Screening for malignant [facility] 00:00:00 neoplasm of colon Medical Ce nter (procedure) [code = 671545042] Future Scheduled 1970 Sigmoidoscopy [code = [facility] Sigmoidoscopy] Medical Cent[facility] r Future Scheduled 1970 CT Colonography (combo) [facility] 00:00:00 [code = CT [facility]ography [facility] (com[facility])] Future Scheduled 1970 Screening for malignant [facility] 00:00:00 neoplasm of colon Medical Ce nter (procedure) [code = 199045600] Future Scheduled 1970 Screening for malignant [facility] 00:00:00 neoplasm of colon Medical Ce nter (procedure) [code = 857253761] Future Scheduled 1970 Sigmoidoscopy [code = [facility] Sigmoidoscopy] Medical [facility] r Future Scheduled 1970 CT Colonography (combo) [facility] 00:00:00 [code = CT [facility]ography [facility] ([facility])] Future Scheduled 1970 Screening for malignant [facility] 00:00:00 neoplasm of colon Medical Ce nter (procedure) [code = 834315844] Future Scheduled 1970 Screening for malignant [facility] 00:00:00 neoplasm of colon Medical Ce nter (procedure) [code = 323664969] Future Scheduled 1970 Sigmoidoscopy [code = [facility] Sigmoidoscopy] Medical Seda r Future Scheduled 1970 CT Colonography (combo) [facility] 00:00:00 [code = CT [facility]ography [facility] (com[facility])] Future Scheduled 1970 Screening for malignant [facility] 00:00:00 neoplasm of colon Medical Ce nter (procedure) [code = 689538901] Future Scheduled 1970 Screening for malignant [facility] 00:00:00 neoplasm of colon Medical Ce nter (procedure) [code = 237533668] Future Scheduled 1970 Sigmoidoscopy [code = [facility] Sigmoidoscopy] Medical Seda r Future Scheduled 1970 CT Colonography (combo) [facility] 00:00:00 [code = CT Colonography [facility] (combo)] Future Scheduled 1970 Screening for malignant [facility] 00:00:00 neoplasm of colon Medical Ce nter (procedure) [code = 485554574] Future Scheduled 1970 Screening for malignant [facility] 00:00:00 neoplasm of colon Medical Ce nter (procedure) [code = 633519868] Future Scheduled 1970 Sigmoidoscopy [code = [facility] S[facility]oidoscopy] Medical Cent[facility] r Future Scheduled 1970 CT Colonography (combo) [facility] 00:00:00 [code = CT [facility]ography [facility] (combo)] Future Scheduled 1970 Screening for malignant [facility] 00:00:00 neoplasm of colon Medical Ce nter (procedure) [code = 258583977] Future Scheduled 1970 Screening for malignant [facility] 00:00:00 neoplasm of colon Medical Ce nter (procedure) [code = 369223128] Future Scheduled 1970 Sigmoidoscopy [code = [facility] S[facility]oidoscopy] Medical Cent[facility] r Future Scheduled 1970 CT Colonography (combo) [facility] 00:00:00 [code = CT [facility]ography [facility] (combo)] Future Scheduled 1970 Screening for malignant [facility] 00:00:00 neoplasm of colon Medical Ce nter (procedure) [code = 631866550] Future Scheduled 1970 Screening for malignant [facility] 00:00:00 neoplasm of colon Medical Ce nter (procedure) [code = 356762755] Future Scheduled 1970 Sigmoidoscopy [code = [facility] 00:[facility] Sigmoidoscopy] Medical Cent[facility] r Future Scheduled 1970 CT Colonography (combo) [facility] 00:00:00 [code = CT [facility]ography [facility] (combo)] Future Scheduled 1970 Screening for malignant [facility] 00:00:00 neoplasm of colon Medical Ce nter (procedure) [code = 610787927] Future Scheduled 1970 Screening for malignant [facility] 00:00:00 neoplasm of colon Medical Ce nter (procedure) [code = 533814897] Future Scheduled 1970 Sigmoidoscopy [code = [facility] S[facility]oidoscopy] Medical Cent[facility] r Future Scheduled 1970 CT Colonography (combo) [facility] 00:00:00 [code = CT [facility]ography [facility] (combo)] Future Scheduled 1970 Screening for malignant [facility] 00:00:00 neoplasm of colon Medical Ce nter (procedure) [code = 475290164] Future Scheduled 1970 Screening for malignant [facility] 00:00:00 neoplasm of colon Medical Ce nter (procedure) [code = 088369937] Future Scheduled 1970 Sigmoidoscopy [code = [facility] 00:[facility] S[facility]oidoscopy] Medical Cente r Future Scheduled 1970 CT Colonography (combo) [facility] 00:00:00 [code = CT [facility]ography [facility] (combo)] Future Scheduled 1970 Screening for malignant [facility] 00:00:00 neoplasm of colon Medical Ce nter (procedure) [code = 686113494] Future Scheduled 1970 Screening for malignant [facility] 00:00:00 neoplasm of colon Medical Ce nter (procedure) [code = 879047066] Future Scheduled 1970 Sigmoidoscopy [code = [facility] S[facility]oidoscopy] Medical Angele r Future Scheduled 1970 CT Colonography (combo) [facility] 00:00:00 [code = CT [facility]ography [facility] ([facility])] Future Scheduled 1970 Fluoride Varnish [code = [facility] 00:00:00 Fluoride Varnish] Future Scheduled 1970 Fluoride Varnish [code = [facility] 00:00:00 Fluoride Varnish] Future Scheduled 1970 Fluoride Varnish [code = [facility] 00:00:00 Fluoride Varnish] Future Scheduled 1970 Fluoride Varnish [code = [facility] 00:00:00 Fluoride Varnish] Future Scheduled 1970 Fluoride Varnish [code = [facility] 00:00:00 Fluoride Varnish] Future Scheduled 1970 Fluoride Varnish [code = [facility] 00:00:00 Fluoride Varnish] Future Scheduled 1970 Fluoride Varnish [code = [facility] 00:00:00 Fluoride Varnish] Future Scheduled 1970 Fluoride Varnish [code = [facility] 00:00:00 Fluoride Varnish] Future Scheduled 1970 Fluoride Varnish [code = [facility] 00:00:00 Fluoride Varnish] Future Scheduled 1970 Fluoride Varnish [code = [facility] 00:00:00 Fluoride Varnish] Future Scheduled 1970 Fluoride Varnish [code = [facility] 00:00:00 Fluoride Varnish] Future Scheduled 1970 CT Colonography (combo) [facility] 00:00:00 [code = CT Colonography [facility] (combo)] Future Scheduled 1970 Screening for malignant [facility] 00:00:00 neoplasm of colon Medical Ce nter (procedure) [code = 525915300] Future Scheduled 1970 Screening for malignant [facility] 00:00:00 neoplasm of colon Medical Ce nter (procedure) [code = 685421927] Future Scheduled 1970 Sigmoidoscopy [facility]code [facility] Start End Encounter Admission Attending Care Care Encounter Source Date/Time Date/Time Type Type Clinicians Facility Department ID 2021-06-25 Emergency [facility] [id number] Univers 05:25:12 ity of [facility] 2021-06-25 Emergency [facility] [id number] Univers 01:41:18 ity of [facility] 2021-06-24 Emergency [facility] [id number] Univers 22:38:17 ity of [facility] 2021-06-22 Emergency [facility] [id number] Univers 21:40:44 ity of [facility] 2021-06-22 Emergency [facility] [id number] Univers 13:55:03 ity of [facility] 2021-06-22 Emergency [facility] [id number] Univers 05:54:16 ity of [facility] 2021-06-21 Emergency [facility] [id number] Univers 22:33:24 ity of [facility] 2021-06-21 Emergency [facility] [id number] Univers 22:33:24 ity of [facility] 2021-06-21 Emergency [facility] [id number] Univers 22:22:08 ity of [facility] 2021-06-21 Emergency [facility] [id number] Univers 20:04:56 ity of [facility] 2021-06-21 Emergency [facility] [id number] Univers 19:53:56 ity of [facility] 2021-06-21 Emergency [facility] [id number] Univers 19:37:27 ity of [facility] 2021-06-21 Emergency [facility] [id number] Univers 19:36:41 ity of [facility] 2021-06-21 Emergency [facility] [id number] Univers 17:11:26 ity of [facility] 2021-06-21 Emergency [facility] [id number] Univers 16:44:38 ity of [facility] 2021-06-21 Emergency [facility] [id number] Univers 11:19:16 ity of [facility] 2021-06-21 Emergency [facility] [id number] Univers 10:16:06 ity of [facility] 2021-06-21 Emergency [facility] [id number] Univers 06:08:42 ity of [facility] 2021-06-21 Emergency [facility] [id number] Univers 04:43:23 ity of [facility] 2021-06-21 Emergency [facility] [id number] Univers 04:42:49 ity of [facility] 2021-06-20 Emergency X GORHeidi, [facility] CASSIE [id number] Univers 18:31:02 OSMAR ity of [facility] 2020-02-23 Inpatient HCAPM LENNY [id number] [facility] 18:42:00 89 [facility] 2020-02-17 Inpatient EM Avtar, HCAPM MAS [id number] [facility] 00:22:00 Oladipo 75 [facility] 2020-01-05 Inpatient UR Perea, HCAPM MEDI.01 [id number] [facility] 20:23:00 Mark 40 [facility] [place] 2019-12-13 Inpatient HCAMN JULIA [id number] [facility] 17:52:00 47 [facility] 2023-03-20 2023-03-20 Emergency X ROBLEDO, [facility] ERT [id number] Univers 14:28:00 17:50:00 SABI ity of [facility] 2023-03-20 2023-03-20 Emergency Robledo, [facility] [id number] Univers 14:28:00 17:50:00 Sabi CHAU [id number] [id number] [id number] [facility] [address]14 Branch (CLC) 2023-02-12 2023-02-12 Orders Doctor BERNARDO [id number] Univers 00:00:00 00:00:00 Only Unassigned, MAGGY [id number] ity of [place] [facility] [id number] Javi as [id number] [facility] [address] 2023-02-02 2023-02-02 Outpatient R BIA PEDRO [facility] 003 [id number] Univers 11:00:00 11:00:00 ity of [facility] 2023-01-29 2023-01-29 Transition MELANIE Vallejo 1.2.840.114 [id number] Univers 00:00:00 00:00:00 of Care Emili RECINOS 350.1.13.10 ity of [place] [id number] [facility] [address] 2023-01-27 2023-01-28 In[facility] [id number] Univers 16:04:00 16:30:00 BERNARDO atwood [facility] 2023-01-27 2023-01-28 Hospital MARGARITA Ochoa 1.2.840.114 [id number] Univers 16:04:00 16:30:00 Encounter Bernardo WINTER 350.1.13.10 ity of [facility] 4.2.7.2.686 [place] [id number] [facility] 092 Branch 2023-01-27 2023-01-27 Emergency EM Rakesh, HCACL AERS [id number] [facility] 08:58:00 14:58:00 Oluwadolapo 72 Cl ear [facility] 2023-01-26 2023-01-26 Emergency X LIDA [facility] ERT [id number] Univers 18:31:00 23:50:00 LAMONT ithiram [facility] 2023-01-26 2023-01-26 Emergency [facility] 1.2.765.293 [id number] Univers 18:31:00 23:50:00 [facility] 350.1.13.10 it y of [place] [phone] [address] ([facility]) 2022-12-22 2022-12-22 Outpatient R BIA PEDRO [facility] [id number] Univers 11:15:00 11:15:00 ity [facility] 2022-12-19 2022-12-19 Patient Laura Turcios MELANIE 1.2.840.114 10 [id number] Univers 00:00:00 00:00:00 Outreach RECINOS 350.1.13.10 i [place] [id number] [address] 2022-12-14 2022-12-14 Emergency X STACEY SHARP [facility] ERT [id number] Univers 16:44:00 19:27:00 STACEY SHARP hiram [facility] 2022-12-14 2022-12-14 Emergency Salvador, TRAUMA 1.2.840.114 102 [id number] Univers 16:44:00 19:27:00 [facility] 350.1.13.10 [place] [id number] [address] 2022-12-10 2022-12-10 Patient Chucky Turciosphilipp ALEMAN 1.2.840.114 10 [id number] Univers 00:00:00 00:00:00 Outreach RECINOS 350.1.13.10 i [place] [id number] [address] 2022-12-10 2022-12-10 Transition MELANIE Vallejo 1.2.840.114 102 [id number] Univers 00:00:00 00:00:00 of Care Emili RECINOS 350.1.13.10 ity of [place] [id number] [facility] [address] 2022-11-27 2022-12-09 Inpatient U MAYELA [facility] CASSIE [id number] Univers 08:00:00 17:36:00 ity of [facility] 2022-11-27 2022-12-09 Hospital Dwain Junior 1.2.8 40.114 [id number] Univers 08:00:00 17:36:00 Encounter Bharat Medrano 350.1.1 3.10 ity of [facility] 4.2.7.2.686 [place] [id number] [facility] 0[address] 2022-12-04 2022-12-04 Surgery [facility] MARGARITA 1.2.840.114 10 [id number] Univers 11:18:00 16:48:00 MAGGY 350.1.13.10 it y of [facility] 4.2.7.2.686 [place]avi as [id number] [facility] 103 [address] 2022-11-25 2022-11-25 Transition MELANIE Mei 1.2.840.114 10 [id number] Univers 00:00:00 00:00:00 of Care Sandy RECINOS 350.1.13.10 i ty of [place] [id number] [facility] [address] 2022-11-24 2022-11-24 Patient Laura Turcios MELANIE 1.2.840.114 10 [id number] Univers 00:00:00 00:00:00 Outreach RECINOS 350.1.13.10 i ty of [place] [id number] [facility] [address] 2022-11-19 2022-11-22 Inpatient X EDGAR NVSONAM URI [id number] Univers 09:51:00 14:07:00 MONTSERRAT it y of [facility] 2022-11-19 2022-11-22 Hospital Constantin Perez 1.2.840. 114 [id number] Univers 09:51:00 14:07:00 Encounter Adrian Hernándezbrielle WINTER 350.1.13 .10 ity of HOSPITAL 4.2.7.2.686 [place] [id number] [facility] [address] 2022-11-21 2022-11-21 Transition MELANIE Vallejo 1.2.840.114 101 [id number] Univers 00:00:00 00:00:00 of Care Emili TRINIDADY 350.1.13.10 [place]y of [place] [id number] [facility] [address] 2022-11-07 2022-11-07 Transition MELANIE Valdes 1.2.840.114 101 [id number] Univers 00:00:00 00:00:00 of Care Miryam TRINIDADY 350.1.13.10 it y of [place] [id number] [facility] [address] 2022-11-02 2022-11-06 Inpatient X ALEXIS [facility] [id number] Univers 07:47:00 13:27:00 BHARAT ity of [facility] 2022-11-02 2022-11-06 [facility] Danay Gordillo 1.2.840. 114 [id number] Univers 07:47:00 13:27:00 Encounter Bharat Medrano 350.1.1 3.10 ity of [facility] 4.2.7.2.686 [place] [id number] [facility] [address] 2022-10-28 2022-10-28 Telephone [facility] 1.2.840.114 10 [id number] Univers 00:00:00 00:00:00 [facility] 350.1.13.10 ity of [place].2.[place] - [id number] [facility] 408 [address] 2022-10-28 2022-10-28 [facility] 1.2.840.114 [id number] Univers 00:00:00 00:00:00 (Out) [facility] SPECIALTY 350.1.13.10 ity of Gastroenter CARE 4.2.7.2.686 [facility] AT [phone] Nm pablo PARDO [address] [facility] 2022-10-27 2022-10-27 Outpatient R [facility] [id number] Univers 14:00:00 14:00:00 ORPHEUS ity of [facility] 2022-10-22 2022-10-22 Telephone [facility] 1.2.840.114 10 [id number] Univers 00:00:00 00:00:00 [facility] 350.1.13.10 ity of [place] - [id number] Med ical [facility] [address] 2022-10-19 2022-10-19 Emergency X GEOVANNA, [facility] ERT [id number] Univers 19:16:00 22:32:00 FOLUSHO ity [facility] 2022-10-19 2022-10-19 Emergency Ibikunle, TRAUMA 1.2.840.114 10 [id number] Univers 19:16:00 22:32:00 [facility] 350.1.13.10 ity [place] [id number] [facility] 014 Branch 2022-05-22 2022-05-22 Transition MELANIE Vallejo 1.2.840.114 [id number] Univers 00:00:00 00:00:00 of Care Emili TRINIDADY 350.1.13.10 ity of [place] [id number] [facility] mariusz 403 [address] 2022-05-19 2022-05-21 Inpatient X CLAIRE [facility] [id number] Univers 19:15:00 15:48:00 PATEL ity of [facility] 2022-05-19 2022-05-21 Hospital Joel Baez [facility] 1.2.840. 114 [id number] Univers 19:15:00 15:48:00 Encounter Eros Rios 350.1.13.10 ity of Patel Rangel 4.2.7.2.686 [facility] [phone] [facility] mariusz 080 Branch 2022-05-21 2022-05-21 Patient Saira Goodman 1.2.840.114 [id number] Univers 00:00:00 00:00:00 Outreach E RECINOS 350.1.13.10 i ty of [place] [id number] [facility] [address] 2022-04-14 2022-04-14 Transition MELANIE Valdes 1.2.840.114 [id number] Univers 00:00:00 00:00:00 of Care Miryam RECINOS 350.1.13.10 it y of [place] [id number] [facility] [address] 2022-04-09 2022-04-10 Emergency X [facility] ERT [id number] Univers 20:38:00 00:14:00 FOLUSHO ity of [facility] 2022-04-09 2022-04-10 Emergency [facility] 1.2.840.114 [id number] Univers 20:38:00 00:14:00 Alvarez OROPEZA 350.1.13.10 ity of [place] 4.2.7.2.686 [facility] [id number] [facility] 084 [address] 2022-04-09 2022-04-09 Transition MELANIE Valdes 1.2.840.114 [id number] Univers 00:00:00 00:00:00 of Care Miryam TRINIDADY 350.1.13.10 it [place] [id number] [address] 2022-04-02 2022-04-08 Inpatient X [facility] [id number] Univers 11:42:00 12:30:00 rai LORA [facility] 2022-04-02 2022-04-08 Hospital Rekha Sheehan [facility] 1.2.840.11 4 [id number] Univers 11:42:00 12:30:00 Encounter Zahraa Thomasshua [facility] 350.1.13.10 ity of [facility] Diogo Lora 4.2.7.2.686 [place] [id number] [address] ([facility]) 2022-03-29 2022-03-29 Emergency EM Bridgett, HCACL AERS [id number] [facility] 14:26:00 16:45:00 Sabi Adams [facility] 2022-03-29 2022-03-29 Emergency EM Bridgett, HCACL HCACL [id number] [facility] 14:26:00 16:45:00 Sabi [id number] [facility] 2022-03-25 2022-03-26 Inpatient E DHAMOTHARAN [facility] MED [address]3 [address] 13:38:00 10:16:00 , YESSI 2022-03-15 2022-03-[address] [facility] MED [address] [facility] 13:36:00 18:59:00 NELSON 2022-03-13 2022-03-13 Emergency MOE JAMIE 1.2.840.114 [id number] [place] 15:33:00 20:25:00 [place] 89305.1.13.43 [facility]2.7.2.6869 [id number] 3787-07-21 2022-03-13 Outpatient [facility] [id number] [place] 00:00:00 00:00:00 [facility] 2022-03-06 2022-03-09 Inpatient ER [facility]AS [facility] 20 [id number] [facility] 12:16:00 12:55:00 2022-03-06 2022-03-09 Hospital ER Aryan Tello [facility] [id number] 12:16:00 12:55:00 Encounter Norma Montalvo Romie Bahena [facility] Anya, Leonidas Bain Colin 2022-03-06 2022-03-[address] [facility] [id number] 00:00:00 00:00:00 Only [facility] 2022-03-06 2022-03-06 Travel [facility] [id number] [facility] 00:[facility]00 00:00:00 [facility] 2022-02-18 2022-02-20 Emergency Mitzi Carbajal [facility] 1.2.8 40.114 [id number] [place] 13:58:00 11:55:00 Alona Calvert GENERAL 350.1.13.43 [facility] .2.7.2.6869 Fannie Blake [id number] 3503-06-28 2022-02-18 Emergency [facility] [id number] [place] 15:19:05 15:23:18 [facility] 2022-02-18 2022-02-18 [facility] [id number] [place] 13:58:00 13:58:00 [facility] 2022-02-18 2022-02-18 Outpatient [facility] [id number] [place] 00:00:00 00:00:00 , OSCAR Khannacarmen gera 2022-02-07 2022-02-[address] [facility] MOE JAMIE 1.2.840.1 14 [id number] [place] 13:40:00 13:22:00 Encounter Daily Islas 350.1.13.43 [facility] .2.7.2.6869 [id number] 1482-06-17 2022-02-07 Outpatient 1 DAILY ISLAS [facility] [id number] [place] 13:40:00 13:40:00 [facility] 2022-01-30 2022-01-30 Emergency [facility] [id number] [facility] 17:02:00 18:29:00 Dwain 53 [facility] 2022-01-30 2022-01-30 Emergency [facility] [id number] [facility] 17:02:00 18:29:00 Dwain [id number] [facility] 2022-01-22 2022-01-22 Emergency [facility] [id number] [place] 17:24:00 20:39:00 [facility] 2022-01-16 2022-01-21 Emergency Raymon Martin [facility] [id number] [place] 11:04:00 18:08:00 Karin Bassett [facility] Sushil Craig Parth P 2022-01-19 2022-01-19 Outpatient [facility] [id number] Lynne 12:34:08 13:29:31 Health 2022-01-16 2022-01-16 Outpatient [facility] [id number] [place] 19:42:28 20:01:28 Health 2022-01-16 2022-01-16 Outpatient 1 BASSETT [facility] [id number] [place] 11:04:00 11:04:00 KARIN boss 2022-01-10 2022-01-11 Emergency Bret Reed [facility] [id number] [place] 10:58:00 11:20:[address] [facility] Merissa Richards 2022-01-10 2022-01-10 Outpatient 1 JUSTIN, [facility] [id number] [place] 10:58:00 10:58:00 [facility] 2022-01-08 2022-01-09 Emergency [facility] [id number] [place] 17:57:00 02:50:00 [facility] 2022-01-08 2022-01-08 Emergency [facility] [id number] [place] 21:40:34 21:50:19 [facility] 2021-09-23 2021-09-23 Emergency EM [facility]le [facility] [id number] [facility] 19:35:00 21:10:[address] [place] [address] 2021-09-13 2021-09-13 Emergency X RACHEL, [facility] ERT [id number] Univers 21:20:00 22:36:00 MICKEY atwood [facility] 2021-09-13 2021-09-13 Emergency Rachel, [facility] 1.2.556.704 [id number] Univers 21:20:00 22:36:00 [facility] 350.1.13.10 it y of [place] 4.2.7.2.686 [facility] [id number] [address] ([facility]) 2021-09-13 2021-09-13 Emergency EM Raffaele [facility] [id number] [facility] 14:57:00 16:37:00 06 [facility] 2021-09-12 2021-09-12 Emergency X MORRICAL, [facility] ERT [id number] Univers 14:25:00 17:51:00 DWAIN atwood [facility] 2021-09-12 2021-09-12 Emergency Morrical, TRAUMA 1.2.840.114 [id number] Univers 14:25:00 17:51:00 Dwain [facility] 350.1.13.10 [place] [id number] [address] 2021-09-12 2021-09-12 Emergency X JIGARTERESA [facility] ERT [id number] Univers 06:20:00 10:10:[address] [facility] 2021-09-12 2021-09-12 Emergency Dalmedo, Alona TRAUMA 1.2.840 .114 [id number] Univers 06:20:00 10:10:00 WinstongalinabrielleConstantin [place] 350.1.13.10 [place] [id number] [address] 2021-09-08 2021-09-09 Emergency [facility] ERT [id number] Univers 23:01:00 01:30:00 SEBASTIAN ity [facility] 2021-09-08 2021-09-09 Emergency Pacheco, TRAUMA 1.2.552.318 [id number] Univers 23:01:00 01:30:00 Sebastian [facility] 350.1.13.10 it[place] [id number] [address] 2021-09-07 2021-09-07 Emergency [facility] ERT [id number] Univers 19:24:00 23:44:00 SEBASTIAN ity [facility] 2021-09-07 2021-09-07 Emergency Pacheco, TRAUMA 1.2.409.355 [id number] Univers 19:24:00 23:44:00 Sebastian [facility] 350.1.13.10 [place] [id number] [address] 2021-09-06 2021-09-06 Emergency [facility] ERT [id number] Univers 15:35:00 17:52:00 [facility] 2021-09-06 2021-09-06 Emergency Pacheco, TRAUMA 1.2.433.761 [id number] [id number] Univers 15:35:00 17:52:00 Sebastian L CENTER 350.1.13.10 it[place] [id number] [facility] [address] 2021-09-06 2021-09-06 Transition MELANIE Vallejo 1.2.840.114 [id number] Univers 00:00:00 00:00:00 of Care Emili RECINOS 350.1.13.10 ity of [place] [id number] [facility] 403 [address] 2021-08-30 2021-09-05 Inpatient [facility]E [id number] Univers 16:53:00 16:00:00 ity of [facility] 2021-08-30 2021-09-05 [facility] Gayatri Gu 1 .2.840.114 [id number] Univers 16:53:00 16:00:00 Encounter Andrea, Sarah Clare MAGGY 350.1 .13.10 ity of [facility] 4.2.7.2.686 [facility] [id number] [facility] 097 Branch 2021-09-03 2021-09-03 Surgery [facility] MARGARITA 1.2.840.114 [id number] Univers 07:15:00 10:04:00 MAGGY 350.1.13.10 it y of [facility] 4.2.7.2.686 Javi as [id number] [facility] 103 [address] 2021-08-29 2021-08-29 Emergency X IBELODIAUNRENETTA, [facility] ERT [id number] Univers 17:15:00 20:03:00 FOLUSHO ity of [facility] 2021-08-29 2021-08-29 Emergency Ibikunle, TRAUMA 1.2.840.114 [id number] Univers 17:15:00 20:03:00 Alvarez F CENTER 350.1.13.10 it[place]2.[place] [id number] [facility] 014 [address] 2021-07-29 2021-08-05 [facility] CASSIE [id number] Univers 20:15:00 07:43:00 ity of [facility] 2021-07-29 2021-08-05 Hospital Negrita Jonah AVILA 1.2.840.1 14 [id number] Univers 20:15:00 07:43:00 Encounter Latia Myersfer MAGGY 350.1.13.1 0 ity [facility] 4.2.7.2.686 [place] [id number] [facility] 091 [address] 2021-07-29 2021-07-29 Transition MELANIE Vallejo 1.2.840.114 [id number] Univers 00:00:00 00:00:00 of Care Emili GRISEL 350.1.13.10 ity [facility] 4.2.7.2.[place] [id number] [facility] 403 [address] 2021-07-27 2021-07-27 Emergency EM Kateryna, HCAMN JULIA [id number] [facility] 10:15:00 12:36:[address] 2021-07-23 2021-07-26 [facility] [id number] Univers 00:39:00 14:50:00 ity of [facility] 2021-07-23 2021-07-26 Hospital Sabi Schultz 1.2.840 .114 [id number] Univers 00:39:00 14:50:00 Encounter Mayela [facility] MAGGY 350.1.13.10 ity of [facility] 4.2.7.2.686 Javi as [id number] [facility] 093 [address] 2021-07-22 2021-07-22 Emergency EM Marcelina, HCACL AERS [id number] [facility] 04:25:00 08:20:00 Gabriella Mar [facility] 2021-06-27 2021-06-27 Emergency EM Bridgett HCACL AERS [id number] [facility] 15:31:00 17:37:00 Sabi Pollard [facility] 2021-06-25 2021-06-25 Orders Doctor BERNARDO 1.2.840.114 [id number] Univers 00:00:00 00:00:00 Only Unassigned, MAGGY 350.1.13.10 ity of [facility] 4.2.7.2.686 Javi as [id number] [facility] 009 Branch 2021-05-31 2021-06-04 Emergency Willie Garrett [facility] 1.2.840.1 14 [id number] Univers 17:10:00 16:38:00 RavinderClementine macario Health 350.1.13.10 ity of Sabi Gann [place] 4.2.7.2.686 [place] Tamika Lyle H Bhatt [id number] [address] ([facility]) 2021-05-20 2021-05-21 Emergency AndrzejBernardo [facility] 1.2.840.114 [id number] Univers 14:29:00 17:10:00 NaylorScott silva Health 350.1.13.10 ity of [place].2.[place] [id number] [facility] [address] ([facility]) 2021-05-10 2021-05-10 Transition Melanie Vallejo 1.2.840.114 [id number] Univers 00:00:00 00:00:00 of Care Emili Recinos 350.1.13.10 ity of [place].7.2.[place] [id number] [facility] 403 [address] 2021-05-07 2021-05-09 Hospital Alona Pérez [facility] 1.2.840.11 4 [id number] Univers 19:23:00 15:26:00 Encounter Irene Lora Di[facility] Health 350.1.13. 10 ity of Abad Watson [place] 4.2.7.2.686 [place] Bhatt [id number] [place] [address] [address] ([facility]) 2021-04-28 2021-05-01 Inpatient [facility] [id number] [facility] 21:05:00 14:18:00 Montserrat 03 [facility] 2020-09-26 2020-09-26 Emergency Jose [facility] 1.2.962.534 [id number] [id number] Univers 16:56:00 23:00:00 Mariaelena Oropeza 350.1.13.10 i ty of [place] 4.2.7.2.[place] [id number] [facility] 084 [address] 2020-08-22 2020-08-24 Emergency Funmilayo Pinzon [facility] 1.2.8 40.114 [id number] Univers 15:31:00 14:20:00 SweeneyBart malik Kandi 350.1.13.10 ity of [place] 4.2.7.2.686 [place] Bhatt [id number] [facility] [address] ([facility]) 2020-07-09 2020-07-09 Emergency Henna [facility] 1.2.840.114 [id number] Univers 16:23:00 19:43:00 , Juan M Chau 350.1.13.10 ity of [place].2.[place] [id number] [facility] 014 [address] ([facility]) 2020-06-15 2020-06-15 Patient Saira Goodman Melanie 1.2.840.114 [id number] Univers 00:00:00 00:00:00 Outreach E Recinos 350.1.13.10 i ty of [place] 4.2.7.2.[place] [id number] [place] [address] Branch 2020-06-12 2020-06-12 Patient Saira Goodmaneddie 1.2.840.114 [id number] Univers 00:00:00 00:00:00 Outreach E Recinos 350.1.13.10 i ty of [place] 4.2.7.2.[place] [id number] [place] [address] Branch 2020-06-08 2020-06-08 Patient Jenae Melanie 1.2.840.114 [id number] Univers 00:00:00 00:00:00 Outreach Mela Recinos 350.1.13.10 ity of [place] 4.2.7.2.[place] [id number] [place] [address] Branch 2020-06-07 2020-06-07 Patient Saira Goodman Melanie 1.2.840.114 [id number] Univers 00:00:00 00:00:00 Outreach E Recinos 350.1.13.10 i ty of [place] 4.2.7.2.[place] [id number] [facility] [address] 2020-06-05 2020-06-05 Emergency Bishnu, [facility] 1.2.840.114 [id number] Univers 06:47:00 10:55:00 More Oropeza 350.1.13.10 ity of [place].2.7.2.686 [place] [id number] [facility] 084 [address] 2020-06-04 2020-06-04 Emergency Andrzej, [facility] 1.2.305.438 [id number] Univers 10:36:00 13:38:00 [facility]ly [facility] 350.1.13.10 it y of [place].2.[place] [id number] [facility] 014 [address] ([facility]) 2020-06-04 2020-06-04 Patient Rex Saira Melanie 1.2.840.114 [id number] Univers 00:00:00 00:00:00 Outreach E Rec[place] 350.1.13.10 [place] [id number] [address] 2020-06-04 2020-06-04 Patient Melanie Emanuel 1.2.840.114 [id number] Univers 00:00:00 00:00:00 Outreach Mela Trinidady 350.1.13.10 [phone] [address] [address] 2020-06-01 2020-06-01 Transition Melanie Vallejo 1.2.840.114 [id number] Univers 00:00:00 00:00:00 of Care Emili Recinos 350.1.13.10 [phone] [address] [address] 2020-05-22 2020-05-31 Hospital Alex Lopez 1.2.840.11 [id number] Univers 14:42:00 18:40:00 Encounter Bia Pedro 350.1.13.10 ity of Hospital 4.2.7.2.686 Javi as [phone] [facility] [address] 2020-05-31 2020-05-31 Patient Saira Goodman 1.2.840.114 [id number] Univers 00:00:00 00:00:00 Outreach E Recinos 350.1.13.10 [place] [phone] [facility] [address] 2020-05-23 2020-05-23 Patient Saira Goodman 1.2.840.114 [id number] Univers 00:00:00 00:00:00 Outreach E Recinos 350.1.13.10 [place] [id number] [address] 2020-05-23 2020-05-23 Patient Saira Goodman 1.2.840.114 [id number] Univers 00:00:00 00:00:00 Outreach E Recinos 350.1.13.10 [place] [id number] [address] 2020-05-23 2020-05-23 Patient Melanie Emanuel 1.2.840.114 [id number] Univers 00:00:00 00:00:00 Outreach Mela Trinidady 350.1.13.10 [place] [id number] [address] 2020-05-21 2020-05-21 Emergency [facility] [id number] Univers 20:52:00 23:41:00 Formerly [facility] 350.1.13.10 [place] [phone] [facility] [address] ([facility]) 2020-05-20 2020-05-20 Emergency Unknown, TRAUMA 1.2.840.114 [id number] Univers 07:04:00 15:13:00 Attending CENTER 350.1.13.10 [place] [phone] [facility] [address] 2020-05-19 2020-05-20 Emergency [facility] 1.2.840.114 [id number] Univers 21:29:00 06:12:00 [facility] 350.1.13.10 it y of [place] [place] [phone] [facility] [address] ([facility]) 2020-05-18 2020-05-18 Patient Saira Goodman 1.2.840.114 [id number] Univers 10:18:59 11:28:59 Outreach E Recinos 350.1.13.10 i [place] [phone] [address] 2020-05-18 2020-05-18 Patient Jenae Melanie 1.2.840.114 [id number] Univers 00:00:00 00:00:00 Outreach Mela Trinidady 350.1.13.10 [place] [id number] [address] 2020-05-17 2020-05-17 Patient Saira Goodmaneddie 1.2.840.114 [id number] Univers 00:00:00 00:00:00 Outreach Heidi Recinos 350.1.13.10 [place] [phone] [address] 2020-05-17 2020-05-17 Patient Jenae Melanie 1.2.840.114 [id number] Univers 00:00:00 00:00:00 Outreach Mela Recinos 350.1.13.10 [place] [phone] [address] 2020-05-15 2020-05-15 Patient Jenae, Melanie 1.2.840.114 [id number] Univers 00:00:00 00:00:00 Outreach Mela Recinos 350.1.13.10 [place] [phone] [address] 2020-05-14 2020-05-14 Transition Melanie Vallejo 1.2.840.114 [id number] Univers 00:00:00 00:00:00 of Care Emili Recinos 350.1.13.10 [place] [phone] [address] 2020-05-04 2020-05-12 [facility] Isabel Lora Laz Margarita 1.2. 840.114 [id number] Univers 21:09:00 14:03:00 Encounter Carol Ann Jason 350.1.13.10 ity of Hospital 4.2.7.2.686 Javi as [phone] [address] 2020-05-10 2020-05-10 Patient Saira Goodman 1.2.840.114 [id number] Univers 00:00:00 00:00:00 Outreach E Recinos 350.1.13.10 [place] [phone] [address] 2020-05-09 2020-05-09 Transition Melanie Vallejo 1.2.840.114 [id number] Univers 00:00:00 00:00:00 of Care Emili Recinos 350.1.13.10 [place] [phone] [address] 2020-05-08 2020-05-08 Patient Saira Goodman 1.2.840.114 [id number] Univers 00:00:00 00:00:00 Outreach E Recinos 350.1.13.10 [place] [id number] [address] 2020-05-02 2020-05-03 Emergency [facility] 1.2.588.274 [id number] Univers 23:37:00 01:53:00 Joel S Johnna 350.1.13.10 ity of [place] [phone] [place] 6[address] 2020-05-03 2020-05-03 Patient Saira Goodman 1.2.840.114 [id number] Univers 00:00:00 00:00:00 Outreach E Recinos 350.1.13.10 i [place] [id number] [facility] [address] 2020-05-03 2020-05-03 Transition Melanie Vallejo 1.2.840.114 [id number] Univers 00:00:00 00:00:00 of Care Emili Recinos 350.1.13.10 [place] [phone] [facility] [address] 2020-03-30 2020-05-02 Hospital LopezLeonard sweeneygeri Margarita 1.2.840.11 4 [id number] Univers 16:55:00 16:45:00 Encounter Diogo Keane Maggy 350.1.13. 10 ity of [facility] 4.2.7.2.686 [place] [phone] [facility] [address] 2020-04-06 2020-04-06 Anesthesia Aurea Sampsonbrianna Avila 1.2.8 40.114 [id number] Univers 09:10:00 11:29:00 Cynthia Herring 350.1.1 3.10 ity of Hospital 4.2.7.2.686 [place] [phone] [facility] [address] 2020-03-29 2020-03-29 Transition Melanie Vallejo 1.2.840.114 [id number] Univers 00:00:00 00:00:00 of Care Emili Recinos 350.1.13.10 [place] [phone] [facility] [address] 2020-03-25 2020-03-28 Hospital Bernardo Donnelly [facility] 1.2.840.114 [id number] Univers 19:12:00 18:43:00 Encounter [facility] 350.1.13.1 0 it[place] [phone] [facility] [address] ([facility]) 2020-03-07 2020-03-07 Transition Melanie Vallejo 1.2.840.114 [id number] Univers 00:00:00 00:00:00 of Care Emili Recinos 350.1.13.10 [place] [id number] [facility] [address] 2020-03-02 2020-03-05 Hospital OrbledoSabi yanez [facility] 1.2.840.11 4 [id number] Univers 19:53:34 17:23:00 Encounter Eliu Goetz 350.1.13.10 ity of [place] 4.2.7.2.686 [place] [phone] [facility] [address] ([facility]) 2020-02-29 2020-02-29 Transition Yoni Melanie 1.2.840.114 [id number] Univers 00:00:00 00:00:00 of Care Emili Recinos 350.1.13.10 [place] [phone] [facility] [address] 2020-02-26 2020-02-27 Hospital Juventino Mccabe 1.2.840.11 4 [id number] Univers 04:55:41 19:20:00 Encounter Bia Pedro 350.1.13.10 ity of Hospital 4.2.7.2.686 [place] [phone] [facility] [address] 2020-02-27 2020-02-27 Patient Saira Goodmaneddie 1.2.840.114 [id number] Univers 00:00:00 00:00:00 Outreach E Recinos 350.1.13.10 i ty [place] [phone] [facility] [address] 2020-02-25 2020-02-26 Emergency [facility] 1.2.793.434 [id number] Univers 21:25:58 03:55:00 [facility] 350.1.13.10 it y [place] [phone] [facility] [address] ([facility]) 2020-02-24 2020-02-24 Outpatient JOE Perea LABO [id number] [facility] 07:51:00 07:51:[address] 2020-02-18 2020-02-18 Outpatient JOE Nova LABO [id number] [facility] 00:26[facility]00 [facility]26[facility]00 [facility] 2020-02-07 2020-02-07 Transition VallejoAsia lopezeddie 1.2.840.114 [id number] [id number] Univers 00:00:00 00:00:00 of Care Emili Recinos 350.1.13.10 [place] [id number] [facility] [address] 2020-02-07 2020-02-07 Transition Asia Vallejoeddie 1.2.840.114 [id number] 00:00:00 00:00:00 of Care Emili Recinos 350.1.13.10 [place] 4.[phone] [facility] 2020-01-28 2020-02-05 Inpatient X SIMIN [facility] [id number] Univers 18:12:56 15:12:00 RADHESHYAM ity of [facility] 2020-01-28 2020-02-05 [facility] Bernardo Donnelly [facility] 1.2.840.114 [id number] Univers 18:12:56 15:12:00 Encounter A[place]et[place], [facility] 350.1.13.10 ity of [place]in, Radheshyam Clear 4.2.7.2.686 [facility] [phone] [facility] [address] ([facility]) 2020-01-28 2020-02-05 [facility] Bernardo Donnelly [facility] 1.2.840.114 [id number] 18:12:56 15:12:00 Encounter Ahmed, [facility] 350.1.13.10 Simin, Radheshyam Clear 4.2.7.2.686 [place] [phone] [place] [address] ([facility]) 2020-01-24 2020-01-26 Emergency RobledoSabi [facility] 1.2.840.1 14 [id number] Univers 18:46:34 19:35:00 Ahmed, [facility] 350.1.13.10 ity of [place]in, Radheshyam Clear 4.2.7.2.686 [facility] [phone] [facility] [address] ([facility]) 2020-01-24 2020-01-26 Outpatient X SIMIN [facility] [id number] Univers 18:46:34 19:35:00 RADHESHYAM ity of [facility] 2020-01-24 2020-01-26 Emergency Sabi Robledo [facility] 1.2.840.1 14 [id number] 18:46:34 19:35:00 [facility] 350.1.13.10 [place] 4.2.7.2.686 [place] [phone] Hospital 109 ([facility]) 2020-01-05 2020-01-05 [id number] [facility] 23:52:00 23:52:00 [facility] 2019-12-28 2019-12-28 Orders Doctor BERNARDO 1.2.840.[id number] [facility] 00:00:00 00:00:00 Only Unassigned, MAGGY 350.1.13.10 ity of [place] [facility] 4.2.7.2.686 Javi as [phone] [facility] [address] 2019-12-28 2019-12-28 Orders Doctor BERNARDO 1.2.840.114 [id number] 00:00:00 00:00:00 Only Unassigned, MAGGY 350.1.13.10 [place] [facility] 4.2.7.2.686 [id number] 009 2019-12-12 2019-12-12 Emergency Douglas, TRAUMA 1.2.526.655 [id number] Univers 21:02:30 23:20:00 Osmar [facility] 350.1.13.10 i [place] [phone] [facility] [address] 2019-12-12 2019-12-12 Emergency Douglas, TRAUMA 1.2.572.454 [id number] 21:02:30 23:20:00 Osmar [facility] 350.1.13.10 4.2.7.2.686 [id number] 014 2017-11-02 2017-11-02 Emergency E [facility] [id number] 08:33:00 08:33:00 [facility] 2017-08-05 2017-08-05 Outpatient [facility] [id number] [place] 00:00:00 00:00:00 Health 2017-07-28 2017-07-28 Outpatient [facility] [id number] [place] 00:00:00 00:00:00 Health 2017-06-24 2017-06-24 Outpatient [facility] [id number] [place] 00:00:00 00:00:00 [facility] 2017-06-22 2017-06-22 Emergency [facility] [id number] [place] 21:37:29 21:37:29 Health 2017-06-22 2017-06-22 Emergency [facility] [id number] [place] 21:06:00 21:06:00 Health 2017-06-22 2017-06-22 Outpatient [facility] [id number] [place] 10:02:31 10:02:31 Health 2017-06-09 2017-06-09 Outpatient [facility] [id number] [place] 00:00:00 00:00:00 [facility] 2017-06-09 2017-06-09 Outpatient [facility] [id number] [place] 00:00:00 00:00:00 [facility] 2017-05-08 2017-05-08 Emergency [facility] [id number] [place] 01:04:44 01:04:44 [facility] 2017-05-05 2017-05-05 Emergency E [facility] [id number] [address] 08:11:00 08:11:00 [facility] 2017-04-15 2017-04-15 Emergency E [facility] [id number] [address] St[address] 09:53:00 09:53:00 [facility] 2017-04-14 2017-04-14 Outpatient [facility] [id number] [place] 13:31:02 13:31:02 Health Results Test Description Test Time Test Comments Results Result Comments Source Lactic Acid Whole Blood 2023-03-20 20:47:35 Test Item Value Reference Range Interpretation Comme nts LACTIC ACID (test code = 9785718409) 1.00 mmol/L 0.50-2.20 Lab Interpretation (test code = 50851-2) Normal [facility] [id number] 04:07:33 Test Item Value Reference Range Interpretation Comments HGB A1C (test code = 5.1 % 4.0-5.7 4548-4) GILBERTO (test code = GILBERTO) Reference RangesNormal: <5.7%Prediabetes: 5.7 - 6.4%Diabetes: > 6.5% Lab Interpretation (test Normal code = 56554-9) [facility] METABOLIC PANEL (NA, K, CL, CO2, GLUCOSE, BUN, CREATININE, CA)2023-01-27 23:24:10 Test Item Value Reference Range Interpretation Comments NA (test code = 135 mmol/L 135-145 9390424487) K (test code = 3.4 mmol/L 3.5-5.0 L 6300877385) CL (test code = 105 mmol/L 98-108 5051010624) CO2 TOTAL (test code = 19 mmol/L 23-31 L 5592519113) AGAP (test code = 11 2-16 5358385032) BUN (test code = 20 mg/dL 7-23 7540565309) GLUCOSE (test code = 84 mg/dL 70-110 3472395517) CREATININE (test code = 1.09 mg/dL 0.60-1.25 5178157620) CALCIUM (test code = 8.5 mg/dL 8.6-10.6 L 8094067212) eGFR (test code = 71.0 mL/min/1.73m2 1681796649) GILBERTO (test code = GILBERTO) Association of [...] tests). Lab Interpretation Abnormal (test code = 14708-8) [facility] (92207) (ALB,T.PRO,BILI T,BU/BC,ALT,AST,ALK PHOS)2023-01-27 23:24:10 Test Item Value Reference Range Interpretation Comments TOTAL BILI (test code = 3409885758) 0.7 mg/dL 0.1-1.1 BILI UNCON (test code = 7058443590) 0.5 mg/dL 0.1-1.1 BILI CONJ (test code = 7475773587) 0.0 mg/dL 0.0-0.3 T PROTEIN (test code = 1067096185) 6.0 g/dL 6.3-8.2 L ALBUMIN (test code = 1994510881) 3.5 g/dL 3.5-5.0 ALK PHOS (test code = 6800191582) 64 U/L 34-122 ALTv (test code = 1742-6) 17 U/L 5-50 AST(SGOT) (test code = 5182153230) 37 U/L 13-40 Lab Interpretation (test code = Abnormal 31426-5) [facility]osph[facility] [id number] 23:24:10 Test Item Value Reference Range Interpretation Comments PHOSPHORUS (test code = 2360765955) 3.4 mg/dL 2.5-5.0 Lab Interpretation (test code = Normal 25736-2) [facility] WITH [id number] 22:54:46 Test Item Value Reference Range Interpretation Comments WBC (test code = 5.12 See_Comment [Automated 4761-2) message] The sy stem which generated this result transmitted reference range : 4.20 - 10.70 10*3/?L. The reference range was not used to interpret this result as normal/abnormal . RBC (test code = 3.88 See_Comment L [Automated 207-8) message] The sy stem which generated this result transmitted reference range : 4.26 - 5.52 10*6/?L. The reference range was not used to interpret this result as normal/abnormal . HGB (test code = 11.0 g/dL 12.2-16.4 L 718-7) HCT (test code = 34.3 % 38.4-49.3 L 4544-3) MCV (test code = 88.4 fL 81.7-95.6 787-2) MCH (test code = 28.4 pg 26.1-32.7 785-6) MCHC (test code = 32.1 g/dL 31.2-35.0 786-4) RDW-SD (test code = 49.4 fL 38.5-51.6 44903-1) RDW-CV (test code = 15.5 % 12.1-15.4 H 788-0) PLT (test code = 226 See_Comment [Automated 777-3) message] The sy stem which generated this result transmitted reference range : 150 - 328 10*3/ ?L. The reference r meredith was not used to interpret this result as normal/abnormal . MPV (test code = 9.8 fL 9.8-13.0 79186-8) NRBC/100 WBC (test 0.0 See_Comment [Automat ed code = 8579266292) message] The system which generated this result transmitted reference range : 0.0 - 10.0 /100 WBCs. The refer ence range was not u sed to interpret th is result as normal/abnormal . NRBC x10^3 (test code See_Comment [Auto mated = 0674965909) message] The s ystem which generated this result transmitted reference range : 10*3/?L. The reference range was not used to interpret this result as normal/abnormal . GRAN MAT (NEUT) % 55.3 % (test code = 770-8) IMM GRAN % (test code 0.60 % = 0631086435) LYMPH % (test code = 31.6 % 736-9) MONO % (test code = 9.8 % 5905-5) EOS % (test code = 2.1 % 713-8) BASO % (test code = 0.6 % 706-2) GRAN MAT x10^3(ANC) 2.83 10*3/uL 1.99-6.95 (test code = 9696834652) IMM GRAN x10^3 (test 0.03 10*3/uL 0.00-0.06 code = 8741671625) LYMPH x10^3 (test code 1.62 10*3/uL 1.09-3.23 = 731-0) MONO x10^3 (test code 0.50 10*3/uL 0.36-1.02 = 742-7) EOS x10^3 (test code = 0.11 10*3/uL 0.06-0.53 711-2) BASO x10^3 (test code 0.03 10*3/uL 0.01-0.09 = 704-7) Lab Interpretation Abnormal (test code = 27156-3) [facility] [id number] 11:13:00 [facility] 1970 Sex: M Name: HOANG MCNEILL FSED : 1970 Age/S: 52 / M [address] [facility] Unit #: [id number] Loc: Eliseo Erazo [address] Phys: Dyana Cameron MD Acct: [id number] Dis Date: Status: REG ER PHONE #:Exam Date: 01/27/2023 1050 FAX #: Reason: LOWER ABD PAIN, OSTOMY REVERSAL 5 MOS AGO EXAMS: CPT CODE: [id number] CT ABD PELVIS W/CONT 91647 B2 TIME OF STUDY: 01/27/2023 9:16 AM REASON FOR EXAM: LOWER ABDPAIN, OSTOMY REVERSAL 5 MOS AGO COMPARISON: February 28, 2013 TECHNIQUE: Helical post contrast enhanced images were obtained through the abdomen and pelvis. Sagittal and coronal reformats were obtained and reviewed. One or more of the following radiation dose reduction techniques was used: automated exposu re control, adjustment of mA and/or KV according to patient size, and/or utilization of iterative reconstruction technique. FINDINGS: CT Abdomen: The included lung bases are clear. Gallbladder is contracted. Postoperative changes of colectomy are noted with anastomosis in the sigmoid. There is mild diffuse dilatation of loops of small bowel measuring up to 3.9 cm. A focal small bowel to small bowel intussusception is seen in the left lower quadrant which are usually transient. The liver, pancreas, kidneys, adrenal glands and spleen all have normal appearance. There is no mesenteric or retroperitoneal adenopathy. There is no free fluid or free air. The osseous structures are age-appropriate. CT Pelvis: Bladder is partially decompressed with circumferential wall thickening. IMPRESSION: 1. Postoperative changes of colectomy with anastomotic sutures at the sigmoid colon. There is diffuse dilatation of loops of small bowel with no obvious transition zone. Differential considerations include ileus versus obstruction. Consider small bowel follow-through for further evaluation. 2. Small bowel to smallbowel exception of the left lower quadrant, likely transient. PAGE 1 Signed Report (CONTINUED) Name: HOANG MCNEILL FSED : 1970 Age/S: 52 / M [address] [facility] Unit #: [id number] Loc:Eliseo Erazo [address] Phys: Dyana Cameron MD Acct: [id number] Dis Date: Status: REG ER PHONE #: Exam Date: 01/27/2023 1050 FAX #: Reason: LOWER ABD PAIN, OSTOMY REVERSAL 5 MOS AGO EXAMS: CPT CODE: [id number] CT ABD PELVIS W/CONT 86111 (Continued) 3. Circumferential thickening of the bladder. This could be due to partial decompression versus cystitis. Correlate with symptoms and urinalysis. at 1113 Reported and signed by: Tomi Anderson M.D. CC: Dyana Cameron MD Technologist:RT Grayson(R)(CT) CTDI: DLP: Trnscb Date/Time: 01/27/2023 (2663) [email or web address] Orig Print D/T: S: 01/27/2023 (9570) PAGE 2 Signed ReportLIVER [id number] 10:31:00 Test Item Value Reference Range Interpretation Comments TOTAL PROTEIN (test code 6.1 GM/DL 5.0-8.0 N Per formed by = PROT) 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 [facility] ed Ctr ALBUMIN (test code = 3.6 g/dL 3.4-5.0 N ALB) BILIRUBIN TOTAL (test 0.7 MG/DL 0.0-1.0 N code = BILT) SGOT/AST (test code = 25 IUnit/L 15-37 N AST) SGPT/ALT (test code = 16 IUnit/L 30-65 L ALT) GAMMA GLUTAMYL 10 UNITS/L 5-85 N TRANSPEPTIDASE (test code = GGT) ALKALINE PHOSPHATASE 83 IUNIT/L 20-125 N TOTAL (test code = ALKP) AMYLASE (test code = 41 UNITS/L 25-125 N TAWNY) COMPLETE BLOOD COUNT (CBC)2023-01-27 10:22:00 Test Item Value Reference Range Interpretation Comments POC WHITE BLOOD CELL 7.1 10 3/uL 3.9-9.4 N Testing performed (test code = EDWBC) at:[facility] [id number] [place], [place] [address] POC RED BLOOD CELL 3.90 10 6/uL 4.14-5.52 L (test code = EDRBC) POC HEMOGLOBIN (test 11.2 g/dL 11.9-16.7 L code = EDHGB) POC HEMATOCRIT (test 33.8 % 36.1-49.4 L code = EDHCT) POC MEAN CELL VOLUME 86.7 fL 83.2-96.0 N (test code = EDMCV) POC MEAN CELL 28.7 pg 27.1-32.5 N HEMOGLOBIN (test code = EDMCH) POC MEAN CELL HGB CONC 33.1 g/dL 31.0-35.8 N (test code = EDMCHC) POC PLATELET COUNT 248 10 3/uL 155-330 N (test code = EDPLT) POC RED CELL DISTRIB 15.7 % 12.0-15.0 H WIDTH (test code = EDRDW-CV) POC LYMPHOCYTES % 20.8 % 16.8-42.5 N (test code = EDLYM%) POC MIXED CELLS % 8.2 % 3.2-16.9 N (test code = EDMXD%) POC NEUTROPHILS % 71.0 % 46.4-74.7 N (test code = EDNEUT%) POC LYMPHOCYTES # 1.50 k/mm3 0.9-3.0 N (test code = EDLYM#) POC MIXED CELLS # 0.6 10 3/uL 0.2-1.1 N (test code = EDMXD#) POC NEUTROPHILS # 5.00 10 3/uL 2.2-6.4 N (test code = EDNEUT#) POC MEAN PLATELET 10.6 fL 8.7-12.6 N VOLUME (test code = EDMPV) BASIC METABOLIC [id number] 10:10:00 Test Item Value Reference Range Interpretation Comments SODIUM (test code = NA/ABG) 140 mmol/L 134-147 N POTASSIUM (test code = K/ABG) 3.1 mmol/L 3.4-5.0 L CHLORIDE (test code = CL/ABG) 106 mmol/L 100-108 N CREATININE ABG (test code = 1.4 mg/dL 0.8-1.3 H CREAABG) POC IONIZED CALCIUM (test code = 1.15 MMOL/L 1.12-1.32 N POCCA) POC GLUCOSE (test code = POCGLU) 80 MG/DL 70-110 N BASIC METABOLIC PANEL (NA, K, CL, CO2, GLUCOSE, BUN, CREATININE, CA)2022-12-04 11:06:51 Test Item Value Reference Range Interpretation Comments NA (test code = 137 mmol/L 135-145 6851963351) K (test code = 4.4 mmol/L 3.5-5.0 2092449350) CL (test code = 114 mmol/L 98-108 H 6786662227) CO2 TOTAL (test code = 22 mmol/L 23-31 L 8961408550) AGAP (test code = 1 2-16 L 2472661330) BUN (test code = 12 mg/dL 7-23 7268914782) GLUCOSE (test code = 78 mg/dL 70-110 2052595852) CREATININE (test code = 1.14 mg/dL 0.60-1.25 9152311894) CALCIUM (test code = 7.7 mg/dL 8.6-10.6 L 6064828015) eGFR (test code = 67.5 mL/min/1.73m2 4563247391) GILBERTO (test code = GILBERTO) Association of [...] tests). Lab Interpretation Abnormal (test code = 63750-7) [facility]-13 11:06:51 Test Item Value Reference Range Interpretation Comments MAGNESIUM (test code = 6593482986) 1.6 mg/dL 1.7-2.4 L Lab Interpretation (test code = Abnormal 73287-0) [facility] METABOLIC PANEL (NA, K, CL, CO2, GLUCOSE, BUN, CREATININE, CA)2022-12-04 11:06:51 Test Item Value Reference Range Interpretation Comments NA (test code = 137 mmol/L 135-145 1536034949) K (test code = 4.4 mmol/L 3.5-5.0 1537073971) CL (test code = 114 mmol/L 98-108 H 3207078367) CO2 TOTAL (test code = 22 mmol/L 23-31 L 1478253013) AGAP (test code = 1 2-16 L 0356327764) BUN (test code = 12 mg/dL 7-23 4812040652) GLUCOSE (test code = 78 mg/dL 70-110 7900472071) CREATININE (test code = 1.14 mg/dL 0.60-1.25 5808353083) CALCIUM (test code = 7.7 mg/dL 8.6-10.6 L 3797620008) eGFR (test code = 67.5 mL/min/1.73m2 8363678073) GILBERTO (test code = GILBERTO) Association of [...] tests). Lab Interpretation Abnormal (test code = 79263-6) [facility]2023-04-13 11:06:51 Test Item Value Reference Range Interpretation Comments MAGNESIUM (test code = 5925157128) 1.6 mg/dL 1.7-2.4 L Lab Interpretation (test code = Abnormal 70659-9) [facility] THRM[facility] [id number] 10:41:28 Test Item Value Reference Range Interpretation Comments APTT Patient (test code = 28 See_Comment [ Automated message] 3173-2) The system [employer] generated this result transmitted ref erence range: 26 - 36 Seconds. The re ference range was not u sed to interpret this result as normal/abnor mal. Lab Interpretation (test Normal code = 66991-4) [facility] TH[facility] [id number] 10:41:28 Test Item Value Reference Range Interpretation Comments APTT Patient (test code = 28 See_Comment [ Automated message] 3173-2) The system [employer] generated this result transmitted ref erence range: 26 - 36 Seconds. The re ference range was not u sed to interpret this result as normal/abnor mal. Lab Interpretation (test Normal code = 55073-7) [facility] / [id number] 10:41:27 Test Item Value Reference Range Interpretation Comments PROTIME PATIENT (test 10.6 See_Comment [Auto mated message] code = 5964-2) The system [employer] generated this result transmitted ref erence range: 10.1 - 1 2.6 Seconds. The re ference range was not u sed to interpret this result as normal/abnor mal. INR (test code = 6301-6) 1.0 Nor mal INR <1.1; Warfarin Therap eutic range 2.0 to 3. 0 or 2.5 to 3.5, dep ending upon the indica tions. Lab Interpretation (test Normal code = 91452-6) [facility] / [id number] 10:41:27 Test Item Value Reference Range Interpretation Comments PROTIME PATIENT (test 10.6 See_Comment [Auto mated message] code = 5964-2) The system wh ich generated this result transmitted ref erence range: 10.1 - 1 2.6 Seconds. The re ference range was not u sed to interpret this result as normal/abnor mal. INR (test code = 6301-6) 1.0 Nor mal INR <1.1; Warfarin Therap eutic range 2.0 to 3. 0 or 2.5 to 3.5, dep ending upon the indica tions. Lab Interpretation (test Normal code = 93927-1) [facility] WITH [id number] 10:35:48 Test Item Value Reference Range Interpretation Comments WBC (test code = 4.40 See_Comment [Automated 6690-2) message] The sy stem which generated this result transmitted reference range : 4.20 - 10.70 10*3/?L. The reference range was not used to interpret this result as normal/abnormal . RBC (test code = 2.84 See_Comment L [Automated 789-8) message] The sy stem which generated this result transmitted reference range : 4.26 - 5.52 10*6/?L. The reference range was not used to interpret this result as normal/abnormal . HGB (test code = 8.4 g/dL 12.2-16.4 L 718-7) HCT (test code = 26.3 % 38.4-49.3 L 4544-3) MCV (test code = 92.6 fL 81.7-95.6 787-2) MCH (test code = 29.6 pg 26.1-32.7 785-6) MCHC (test code = 31.9 g/dL 31.2-35.0 786-4) RDW-SD (test code = 50.4 fL 38.5-51.6 19520-8) RDW-CV (test code = 15.2 % 12.1-15.4 788-0) PLT (test code = 190 See_Comment [Automated 777-3) message] The sy stem which generated this result transmitted reference range : 150 - 328 10*3/ ?L. The reference r meredith was not used to interpret this result as normal/abnormal . MPV (test code = 9.5 fL 9.8-13.0 L 11905-8) NRBC/100 WBC (test 0.0 See_Comment [Automat ed code = 8572471089) message] The system which generated this result transmitted reference range : 0.0 - 10.0 /100 WBCs. The refer ence range was not u sed to interpret th is result as normal/abnormal . NRBC x10^3 (test code See_Comment [Auto mated = 9162286907) message] The s ystem which generated this result transmitted reference range : 10*3/?L. The reference range was not used to interpret this result as normal/abnormal . GRAN MAT (NEUT) % 52.1 % (test code = 770-8) IMM GRAN % (test code 0.20 % = 9698139459) LYMPH % (test code = 30.0 % 736-9) MONO % (test code = 13.6 % 5905-5) EOS % (test code = 3.4 % 713-8) BASO % (test code = 0.7 % 706-2) GRAN MAT x10^3(ANC) 2.29 10*3/uL 1.99-6.95 (test code = 5975167106) IMM GRAN x10^3 (test 0.00-0.06 code = 7376820407) LYMPH x10^3 (test code 1.32 10*3/uL 1.09-3.23 = 731-0) MONO x10^3 (test code 0.60 10*3/uL 0.36-1.02 = 742-7) EOS x10^3 (test code = 0.15 10*3/uL 0.06-0.53 711-2) BASO x10^3 (test code 0.03 10*3/uL 0.01-0.09 = 704-7) Lab Interpretation Abnormal (test code = 96317-5) [facility] WITH [id number] 10:35:48 Test Item Value Reference Range Interpretation Comments WBC (test code = 4.40 See_Comment [Automated 3190-2) message] The sy stem which generated this result transmitted reference range : 4.20 - 10.70 10*3/?L. The reference range was not used to interpret this result as normal/abnormal . RBC (test code = 2.84 See_Comment L [Automated 559-8) message] The sy stem which generated this result transmitted reference range : 4.26 - 5.52 10*6/?L. The reference range was not used to interpret this result as normal/abnormal . HGB (test code = 8.4 g/dL 12.2-16.4 L 718-7) HCT (test code = 26.3 % 38.4-49.3 L 4544-3) MCV (test code = 92.6 fL 81.7-95.6 787-2) MCH (test code = 29.6 pg 26.1-32.7 785-6) MCHC (test code = 31.9 g/dL 31.2-35.0 786-4) RDW-SD (test code = 50.4 fL 38.5-51.6 23620-2) RDW-CV (test code = 15.2 % 12.1-15.4 788-0) PLT (test code = 190 See_Comment [Automated 777-3) message] The sy stem which generated this result transmitted reference range : 150 - 328 10*3/ ?L. The reference r meredith was not used to interpret this result as normal/abnormal . MPV (test code = 9.5 fL 9.8-13.0 L 68709-8) NRBC/100 WBC (test 0.0 See_Comment [Automat ed code = 1548057089) message] The system which generated this result transmitted reference range : 0.0 - 10.0 /100 WBCs. The refer ence range was not u sed to interpret th is result as normal/abnormal . NRBC x10^3 (test code See_Comment [Auto mated = 5483608966) message] The s ystem which generated this result transmitted reference range : 10*3/?L. The reference range was not used to interpret this result as normal/abnormal . GRAN MAT (NEUT) % 52.1 % (test code = 770-8) IMM GRAN % (test code 0.20 % = 5459627770) LYMPH % (test code = 30.0 % 736-9) MONO % (test code = 13.6 % 5905-5) EOS % (test code = 3.4 % 713-8) BASO % (test code = 0.7 % 706-2) GRAN MAT x10^3(ANC) 2.29 10*3/uL 1.99-6.95 (test code = 3667907262) IMM GRAN x10^3 (test 0.00-0.06 code = 6295691873) LYMPH x10^3 (test code 1.32 10*3/uL 1.09-3.23 = 731-0) MONO x10^3 (test code 0.60 10*3/uL 0.36-1.02 = 742-7) EOS x10^3 (test code = 0.15 10*3/uL 0.06-0.53 711-2) BASO x10^3 (test code 0.03 10*3/uL 0.01-0.09 = 704-7) Lab Interpretation Abnormal (test code = 11795-0) [facility] Test Item Value Reference Range Interpretation Comments MAGNESIUM (test code = 5239329913) 1.8 mg/dL 1.7-2.4 Lab Interpretation (test code = Normal 24187-2) [facility] 11:40:33 Test Item Value Reference Range Interpretation Comments MAGNESIUM (test code = 9522228765) 1.8 mg/dL 1.7-2.4 Lab Interpretation (test code = Normal 34978-3) [facility] METABOLIC PANEL (NA, K, CL, CO2, GLUCOSE, BUN, CREATININE, CA)2022-12-03 11:40:32 Test Item Value Reference Range Interpretation Comments NA (test code = 134 mmol/L 135-145 L 7659911406) K (test code = 4.1 mmol/L 3.5-5.0 1023674859) CL (test code = 111 mmol/L 98-108 H 9113401134) CO2 TOTAL (test code = 21 mmol/L 23-31 L 6312322701) AGAP (test code = 2 2-16 6637869678) BUN (test code = 13 mg/dL 7-23 1492551018) GLUCOSE (test code = 88 mg/dL 70-110 5245472615) CREATININE (test code = 1.24 mg/dL 0.60-1.25 4207871957) CALCIUM (test code = 7.4 mg/dL 8.6-10.6 L 6203999567) eGFR (test code = 61.2 mL/min/1.73m2 6896658734) GILBERTO (test code = GILBERTO) Association of [...] tests). Lab Interpretation Abnormal (test code = 51336-3) [facility] (NA, K, CL, CO2, GLUCOSE, BUN, CREATININE, CA)2022-12-03 11:40:32 Test Item Value Reference Range Interpretation Comments NA (test code = 134 mmol/L 135-145 L 7813724676) K (test code = 4.1 mmol/L 3.5-5.0 3912123026) CL (test code = 111 mmol/L 98-108 H 3169391321) CO2 TOTAL (test code = 21 mmol/L 23-31 L 2269311276) AGAP (test code = 2 2-16 8376387608) BUN (test code = 13 mg/dL 7-23 4254371250) GLUCOSE (test code = 88 mg/dL 70-110 6050458501) CREATININE (test code = 1.24 mg/dL 0.60-1.25 1221623286) CALCIUM (test code = 7.4 mg/dL 8.6-10.6 L 9028886316) eGFR (test code = 61.2 mL/min/1.73m2 2130070940) GILBERTO (test code = GILBERTO) Association of [...] tests). Lab Interpretation Abnormal (test code = 67121-6) [facility] WITH [id number] 11:16:11 Test Item Value Reference Range Interpretation Comments WBC (test code = 4.57 See_Comment [Automated 8790-2) message] The sy stem which generated this result transmitted reference range : 4.20 - 10.70 10*3/?L. The reference range was not used to interpret this result as normal/abnormal . RBC (test code = 2.73 See_Comment L [Automated 789-8) message] The sy stem which generated this result transmitted reference range : 4.26 - 5.52 10*6/?L. The reference range was not used to interpret this result as normal/abnormal . HGB (test code = 8.1 g/dL 12.2-16.4 L 718-7) HCT (test code = 25.1 % 38.4-49.3 L 4544-3) MCV (test code = 91.9 fL 81.7-95.6 787-2) MCH (test code = 29.7 pg 26.1-32.7 785-6) MCHC (test code = 32.3 g/dL 31.2-35.0 786-4) RDW-SD (test code = 49.3 fL 38.5-51.6 24019-2) RDW-CV (test code = 14.9 % 12.1-15.4 788-0) PLT (test code = 214 See_Comment [Automated 777-3) message] The sy stem which generated this result transmitted reference range : 150 - 328 10*3/ ?L. The reference r meredith was not used to interpret this result as normal/abnormal . MPV (test code = 9.4 fL 9.8-13.0 L 43467-2) NRBC/100 WBC (test 0.0 See_Comment [Automat ed code = 2314330674) message] The system which generated this result transmitted reference range : 0.0 - 10.0 /100 WBCs. The refer ence range was not u sed to interpret th is result as normal/abnormal . NRBC x10^3 (test code See_Comment [Auto mated = 1446619655) message] The s ystem which generated this result transmitted reference range : 10*3/?L. The reference range was not used to interpret this result as normal/abnormal . GRAN MAT (NEUT) % 59.7 % (test code = 770-8) IMM GRAN % (test code 0.20 % = 1742896861) LYMPH % (test code = 25.8 % 736-9) MONO % (test code = 11.2 % 5905-5) EOS % (test code = 2.4 % 713-8) BASO % (test code = 0.7 % 706-2) GRAN MAT x10^3(ANC) 2.73 10*3/uL 1.99-6.95 (test code = 4634904646) IMM GRAN x10^3 (test 0.00-0.06 code = 2416142463) LYMPH x10^3 (test code 1.18 10*3/uL 1.09-3.23 = 731-0) MONO x10^3 (test code 0.51 10*3/uL 0.36-1.02 = 742-7) EOS x10^3 (test code = 0.11 10*3/uL 0.06-0.53 711-2) BASO x10^3 (test code 0.03 10*3/uL 0.01-0.09 = 704-7) Lab Interpretation Abnormal (test code = 12720-0) [facility] WITH [id number] 11:16:11 Test Item Value Reference Range Interpretation Comments WBC (test code = 4.57 See_Comment [Automated 6690-2) message] The sy stem which generated this result transmitted reference range : 4.20 - 10.70 10*3/?L. The reference range was not used to interpret this result as normal/abnormal . RBC (test code = 2.73 See_Comment L [Automated 579-8) message] The sy stem which generated this result transmitted reference range : 4.26 - 5.52 10*6/?L. The reference range was not used to interpret this result as normal/abnormal . HGB (test code = 8.1 g/dL 12.2-16.4 L 718-7) HCT (test code = 25.1 % 38.4-49.3 L 4544-3) MCV (test code = 91.9 fL 81.7-95.6 787-2) MCH (test code = 29.7 pg 26.1-32.7 785-6) MCHC (test code = 32.3 g/dL 31.2-35.0 786-4) RDW-SD (test code = 49.3 fL 38.5-51.6 76389-0) RDW-CV (test code = 14.9 % 12.1-15.4 788-0) PLT (test code = 214 See_Comment [Automated 777-3) message] The sy stem which generated this result transmitted reference range : 150 - 328 10*3/ ?L. The reference r meredith was not used to interpret this result as normal/abnormal . MPV (test code = 9.4 fL 9.8-13.0 L 64074-0) NRBC/100 WBC (test 0.0 See_Comment [Automat ed code = 9626589631) message] The system which generated this result transmitted reference range : 0.0 - 10.0 /100 WBCs. The refer ence range was not u sed to interpret th is result as normal/abnormal . NRBC x10^3 (test code See_Comment [Auto mated = 2640681970) message] The s ystem which generated this result transmitted reference range : 10*3/?L. The reference range was not used to interpret this result as normal/abnormal . GRAN MAT (NEUT) % 59.7 % (test code = 770-8) IMM GRAN % (test code 0.20 % = 2776023008) LYMPH % (test code = 25.8 % 736-9) MONO % (test code = 11.2 % 5905-5) EOS % (test code = 2.4 % 713-8) BASO % (test code = 0.7 % 706-2) GRAN MAT x10^3(ANC) 2.73 10*3/uL 1.99-6.95 (test code = 4408666559) IMM GRAN x10^3 (test 0.00-0.06 code = 9159449743) LYMPH x10^3 (test code 1.18 10*3/uL 1.09-3.23 = 731-0) MONO x10^3 (test code 0.51 10*3/uL 0.36-1.02 = 742-7) EOS x10^3 (test code = 0.11 10*3/uL 0.06-0.53 711-2) BASO x10^3 (test code 0.03 10*3/uL 0.01-0.09 = 704-7) Lab Interpretation Abnormal (test code = 04510-7) [facility] CULTURE [id number] 15:01:14 Test Item Value Reference Range Interpretation Comments Blood Culture-Aerobic No organisms No growth Previo us (test code = 45630-7) isolated prelim inary verified result was Culture In Progress on 11/27/2022 at 130 2 CDTPrevious preliminary verified result was No growth a t 24 hours on 11/28/2022 at 100 2 CDTPrevious preliminary verified result was No growth a t 48 hours on 11/29/2022 at 100 1 CDTPrevious preliminary verified result was No growth a t 72 hours on 11/30/2022 at 100 1 CDT Blood No organisms No growth Previous Culture-Anaerobic isolated preliminar y (test code = 02932-7) verifi ed result was Culture In Progress on 11/27/2022 at 130 2 CDTPrevious preliminary verified result was No growth a t 24 hours on 11/28/2022 at 100 2 CDTPrevious preliminary verified result was No growth a t 48 hours on 11/29/2022 at 100 1 CDTPrevious preliminary verified result was No growth a t 72 hours on 11/30/2022 at 100 1 CDT Lab Interpretation Normal (test code = 31982-6) [facility] CULTURE [id number] 15:01:14 Test Item Value Reference Range Interpretation Comments Blood Culture-Aerobic No organisms No growth Previo us (test code = 83600-5) isolated prelim inary verified result was Culture In Progress on 11/27/2022 at 130 2 CDTPrevious preliminary verified result was No growth a t 24 hours on 11/28/2022 at 100 2 CDTPrevious preliminary verified result was No growth a t 48 hours on 11/29/2022 at 100 1 CDTPrevious preliminary verified result was No growth a t 72 hours on 11/30/2022 at 100 1 CDT Blood No organisms No growth Previous Culture-Anaerobic isolated preliminar y (test code = 80114-2) verifi ed result was Culture In Progress on 11/27/2022 at 130 2 CDTPrevious preliminary verified result was No growth a t 24 hours on 11/28/2022 at 100 2 CDTPrevious preliminary verified result was No growth a t 48 hours on 11/29/2022 at 100 1 CDTPrevious preliminary verified result was No growth a t 72 hours on 11/30/2022 at 100 1 CDT Lab Interpretation Normal (test code = 55859-1) [facility] CULTURE [id number] 15:01:14 Test Item Value Reference Range Interpretation Comments Blood Culture-Aerobic No organisms No growth Previo us (test code = 86606-7) isolated prelim inary verified result was Culture In Progress on 11/27/2022 at 130 2 CDTPrevious preliminary verified result was No growth a t 24 hours on 11/28/2022 at 100 2 CDTPrevious preliminary verified result was No growth a t 48 hours on 11/29/2022 at 100 1 CDTPrevious preliminary verified result was No growth a t 72 hours on 11/30/2022 at 100 1 CDT Blood No organisms No growth Previous Culture-Anaerobic isolated preliminar y (test code = 71830-7) verifi ed result was Culture In Progress on 11/27/2022 at 130 2 CDTPrevious preliminary verified result was No growth a t 24 hours on 11/28/2022 at 100 2 CDTPrevious preliminary verified result was No growth a t 48 hours on 11/29/2022 at 100 1 CDTPrevious preliminary verified result was No growth a t 72 hours on 11/30/2022 at 100 1 CDT Lab Interpretation Normal (test code = 56256-0) [facility] CULTURE [id number] 15:01:14 Test Item Value Reference Range Interpretation Comments Blood Culture-Aerobic No organisms No growth Previo us (test code = 79749-5) isolated prelim inary verified result was Culture In Progress on 11/27/2022 at 130 2 CDTPrevious preliminary verified result was No growth a t 24 hours on 11/28/2022 at 100 2 CDTPrevious preliminary verified result was No growth a t 48 hours on 11/29/2022 at 100 1 CDTPrevious preliminary verified result was No growth a t 72 hours on 11/30/2022 at 100 1 CDT Blood No organisms No growth Previous Culture-Anaerobic isolated preliminar y (test code = 60895-9) verifi ed result was Culture In Progress on 11/27/2022 at 130 2 CDTPrevious preliminary verified result was No growth a t 24 hours on 11/28/2022 at 100 2 CDTPrevious preliminary verified result was No growth a t 48 hours on 11/29/2022 at 100 1 CDTPrevious preliminary verified result was No growth a t 72 hours on 11/30/2022 at 100 1 CDT Lab Interpretation Normal (test code = 10841-3) [facility] Test Item Value Reference Range Interpretation Comments PHOSPHORUS (test code = 4678659480) 3.1 mg/dL 2.5-5.0 Lab Interpretation (test code = Normal 94283-2) [facility] 14:32:40 Test Item Value Reference Range Interpretation Comments PHOSPHORUS (test code = 4008384017) 3.1 mg/dL 2.5-5.0 Lab Interpretation (test code = Normal 45248-0) [facility] (NA, K, CL, CO2, GLUCOSE, BUN, CREATININE, CA)2022-12-02 10:14:23 Test Item Value Reference Range Interpretation Comments NA (test code = 133 mmol/L 135-145 L 9856732134) K (test code = 4.2 mmol/L 3.5-5.0 4897539212) CL (test code = 110 mmol/L 98-108 H 9138407437) CO2 TOTAL (test code = 20 mmol/L 23-31 L 5289316509) AGAP (test code = 3 2-16 7257877358) BUN (test code = 11 mg/dL 7-23 3912822104) GLUCOSE (test code = 97 mg/dL 70-110 7614046584) CREATININE (test code = 1.13 mg/dL 0.60-1.25 4312172083) CALCIUM (test code = 7.6 mg/dL 8.6-10.6 L 6474101017) eGFR (test code = 68.1 mL/min/1.73m2 6104667164) GILBERTO (test code = GILBERTO) Association of [...] tests). Lab Interpretation Abnormal (test code = 35267-4) [facility]:14[facility] Test Item Value Reference Range Interpretation Comments MAGNESIUM (test code = 7487384271) 1.5 mg/dL 1.7-2.4 L Lab Interpretation (test code = Abnormal 28479-4) [facility] (NA, K, CL, CO2, GLUCOSE, BUN, CREATININE, CA)2022-12-02 10:14:23 Test Item Value Reference Range Interpretation Comments NA (test code = 133 mmol/L 135-145 L 3648663488) K (test code = 4.2 mmol/L 3.5-5.0 9589450285) CL (test code = 110 mmol/L 98-108 H 7935365211) CO2 TOTAL (test code = 20 mmol/L 23-31 L 1278605353) AGAP (test code = 3 2-16 7623787014) BUN (test code = 11 mg/dL 7-23 5619456498) GLUCOSE (test code = 97 mg/dL 70-110 3799043113) CREATININE (test code = 1.13 mg/dL 0.60-1.25 6572379978) CALCIUM (test code = 7.6 mg/dL 8.6-10.6 L 2079392840) eGFR (test code = 68.1 mL/min/1.73m2 6157789647) GILBERTO (test code = GILBERTO) Association of [...] tests). Lab Interpretation Abnormal (test code = 54988-2) [facility] 10:14:23 Test Item Value Reference Range Interpretation Comments MAGNESIUM (test code = 7187542083) 1.5 mg/dL 1.7-2.4 L Lab Interpretation (test code = Abnormal 66061-4) [facility] (NA, K, CL, CO2, GLUCOSE, BUN, CREATININE, CA)2022-12-01 10:30:03 Test Item Value Reference Range Interpretation Comments NA (test code = 135 mmol/L 135-145 1438472112) K (test code = 4.3 mmol/L 3.5-5.0 4146952581) CL (test code = 111 mmol/L 98-108 H 8470599329) CO2 TOTAL (test code = 20 mmol/L 23-31 L 0451465195) AGAP (test code = 4 2-16 8894787096) BUN (test code = 13 mg/dL 7-23 6395042636) GLUCOSE (test code = 81 mg/dL 70-110 4065826953) CREATININE (test code = 0.97 mg/dL 0.60-1.25 1227742742) CALCIUM (test code = 7.5 mg/dL 8.6-10.6 L 4590354425) eGFR (test code = 81.3 mL/min/1.73m2 4860646767) GILBERTO (test code = GILBERTO) Association of [...] tests). Lab Interpretation Abnormal (test code = 35397-1) [facility] 10:30:03 Test Item Value Reference Range Interpretation Comments MAGNESIUM (test code = 7960183380) 1.9 mg/dL 1.7-2.4 Lab Interpretation (test code = Normal 15088-7) [facility] (NA, K, CL, CO2, GLUCOSE, BUN, CREATININE, CA)2022-12-01 10:30:03 Test Item Value Reference Range Interpretation Comments NA (test code = 135 mmol/L 135-145 5059503996) K (test code = 4.3 mmol/L 3.5-5.0 7709736709) CL (test code = 111 mmol/L 98-108 H 5480387684) CO2 TOTAL (test code = 20 mmol/L 23-31 L 8355182010) AGAP (test code = 4 2-16 1556205062) BUN (test code = 13 mg/dL 7-23 3242497149) GLUCOSE (test code = 81 mg/dL 70-110 6632907364) CREATININE (test code = 0.97 mg/dL 0.60-1.25 5957601609) CALCIUM (test code = 7.5 mg/dL 8.6-10.6 L 6154821626) eGFR (test code = 81.3 mL/min/1.73m2 5182612574) GILBERTO (test code = GILBERTO) Association of [...] tests). Lab Interpretation Abnormal (test code = 18843-7) [facility] 10:[facility]:03 Test Item Value Reference Range Interpretation Comments MAGNESIUM (test code = 3480316008) 1.9 mg/dL 1.7-2.4 Lab Interpretation (test code = Normal 78804-0) [facility] WITH [id number] 10:27:26 Test Item Value Reference Range Interpretation Comments WBC (test code = 4.61 See_Comment [Automated 6690-2) message] The sy stem which generated this result transmitted reference range : 4.20 - 10.70 10*3/?L. The reference range was not used to interpret this result as normal/abnormal . RBC (test code = 3.05 See_Comment L [Automated 109-8) message] The sy stem which generated this result transmitted reference range : 4.26 - 5.52 10*6/?L. The reference range was not used to interpret this result as normal/abnormal . HGB (test code = 9.0 g/dL 12.2-16.4 L 718-7) HCT (test code = 27.8 % 38.4-49.3 L 4544-3) MCV (test code = 91.1 fL 81.7-95.6 787-2) MCH (test code = 29.5 pg 26.1-32.7 785-6) MCHC (test code = 32.4 g/dL 31.2-35.0 786-4) RDW-SD (test code = 47.7 fL 38.5-51.6 94392-0) RDW-CV (test code = 14.5 % 12.1-15.4 788-0) PLT (test code = 274 See_Comment [Automated 777-3) message] The sy stem which generated this result transmitted reference range : 150 - 328 10*3/ ?L. The reference r meredith was not used to interpret this result as normal/abnormal . MPV (test code = 9.0 fL 9.8-13.0 L 35623-0) NRBC/100 WBC (test 0.0 See_Comment [Automat ed code = 0024286532) message] The system which generated this result transmitted reference range : 0.0 - 10.0 /100 WBCs. The refer ence range was not u sed to interpret th is result as normal/abnormal . NRBC x10^3 (test code See_Comment [Auto mated = 2157177858) message] The s ystem which generated this result transmitted reference range : 10*3/?L. The reference range was not used to interpret this result as normal/abnormal . GRAN MAT (NEUT) % 53.2 % (test code = 770-8) IMM GRAN % (test code 0.00 % = 0875678899) LYMPH % (test code = 34.7 % 736-9) MONO % (test code = 9.3 % 5905-5) EOS % (test code = 2.4 % 713-8) BASO % (test code = 0.4 % 706-2) GRAN MAT x10^3(ANC) 2.45 10*3/uL 1.99-6.95 (test code = 2028550620) IMM GRAN x10^3 (test 0.00-0.06 code = 3438284656) LYMPH x10^3 (test code 1.60 10*3/uL 1.09-3.23 = 731-0) MONO x10^3 (test code 0.43 10*3/uL 0.36-1.02 = 742-7) EOS x10^3 (test code = 0.11 10*3/uL 0.06-0.53 711-2) BASO x10^3 (test code 0.01-0.09 = 704-7) Lab Interpretation Abnormal (test code = 08931-9) [facility] WITH [id number] 10:27:26 Test Item Value Reference Range Interpretation Comments WBC (test code = 4.61 See_Comment [Automated 6690-2) message] The sy stem which generated this result transmitted reference range : 4.20 - 10.70 10*3/?L. The reference range was not used to interpret this result as normal/abnormal . RBC (test code = 3.05 See_Comment L [Automated 789-8) message] The sy stem which generated this result transmitted reference range : 4.26 - 5.52 10*6/?L. The reference range was not used to interpret this result as normal/abnormal . HGB (test code = 9.0 g/dL 12.2-16.4 L 718-7) HCT (test code = 27.8 % 38.4-49.3 L 4544-3) MCV (test code = 91.1 fL 81.7-95.6 787-2) MCH (test code = 29.5 pg 26.1-32.7 785-6) MCHC (test code = 32.4 g/dL 31.2-35.0 786-4) RDW-SD (test code = 47.7 fL 38.5-51.6 32709-6) RDW-CV (test code = 14.5 % 12.1-15.4 788-0) PLT (test code = 274 See_Comment [Automated 777-3) message] The sy stem which generated this result transmitted reference range : 150 - 328 10*3/ ?L. The reference r meredith was not used to interpret this result as normal/abnormal . MPV (test code = 9.0 fL 9.8-13.0 L 33409-6) NRBC/100 WBC (test 0.0 See_Comment [Automat ed code = 9304081245) message] The system which generated this result transmitted reference range : 0.0 - 10.0 /100 WBCs. The refer ence range was not u sed to interpret th is result as normal/abnormal . NRBC x10^3 (test code See_Comment [Auto mated = 3366001431) message] The s ystem which generated this result transmitted reference range : 10*3/?L. The reference range was not used to interpret this result as normal/abnormal . GRAN MAT (NEUT) % 53.2 % (test code = 770-8) IMM GRAN % (test code 0.00 % = 7302365950) LYMPH % (test code = 34.7 % 736-9) MONO % (test code = 9.3 % 5905-5) EOS % (test code = 2.4 % 713-8) BASO % (test code = 0.4 % 706-2) GRAN MAT x10^3(ANC) 2.45 10*3/uL 1.99-6.95 (test code = 0363222107) IMM GRAN x10^3 (test 0.00-0.06 code = 0263076883) LYMPH x10^3 (test code 1.60 10*3/uL 1.09-3.23 = 731-0) MONO x10^3 (test code 0.43 10*3/uL 0.36-1.02 = 742-7) EOS x10^3 (test code = 0.11 10*3/uL 0.06-0.53 711-2) BASO x10^3 (test code 0.01-0.09 = 704-7) Lab Interpretation Abnormal (test code = 89989-2) [facility] METABOLIC PANEL (NA, K, CL, CO2, GLUCOSE, BUN, CREATININE, CA)2022-11-30 11:04:34 Test Item Value Reference Range Interpretation Comments NA (test code = 132 mmol/L 135-145 L 2530295115) K (test code = 4.7 mmol/L 3.5-5.0 5617259836) CL (test code = 108 mmol/L 98-108 5985195085) CO2 TOTAL (test code = 18 mmol/L 23-31 L 9753707832) AGAP (test code = 6 2-16 1708791028) BUN (test code = 15 mg/dL 7-23 4420225360) GLUCOSE (test code = 75 mg/dL 70-110 5625555576) CREATININE (test code = 1.03 mg/dL 0.60-1.25 5523202104) CALCIUM (test code = 8.2 mg/dL 8.6-10.6 L 4106756352) eGFR (test code = 75.8 mL/min/1.73m2 1621117687) GILBERTO (test code = GILBERTO) [employer] of [...] tests). Lab Interpretation Abnormal (test code = 26064-2) [facility] Test Item Value Reference Range Interpretation Comments MAGNESIUM (test code = 5477796743) 1.6 mg/dL 1.7-2.4 L Lab Interpretation (test code = Abnormal 37779-3) [facility] (NA, K, CL, CO2, GLUCOSE, BUN, CREATININE, [place])2022-11-30 11:04:34 Test Item Value Reference Range Interpretation Comments NA (test code = 132 mmol/L 135-145 L 4486460713) K (test code = 4.7 mmol/L 3.5-5.0 2830595300) CL (test code = 108 mmol/L 98-108 4630265839) CO2 TOTAL (test code = 18 mmol/L 23-31 L 9492382172) AGAP (test code = 6 2-16 4746082679) BUN (test code = 15 mg/dL 7-23 5279353755) GLUCOSE (test code = 75 mg/dL 70-110 8698825539) CREATININE (test code = 1.03 mg/dL 0.60-1.25 5508628915) CALCIUM (test code = 8.2 mg/dL 8.6-10.6 L 1391560974) eGFR (test code = 75.8 mL/min/1.73m2 2826866720) GILBERTO (test code = GILBERTO) Association of [...] tests). Lab Interpretation Abnormal (test code = 86131-9) [facility] 11[facility]04:[facility] Test Item Value Reference Range Interpretation Comments MAGNESIUM (test code = 6867711488) 1.6 mg/dL 1.7-2.4 L Lab Interpretation (test code = Abnormal 62637-0) [facility] WITH [id number] 10:09:29 Test Item Value Reference Range Interpretation Comments WBC (test code = 4.46 See_Comment [Automated 6690-2) message] The sy stem which generated this result transmitted reference range : 4.20 - 10.70 10*3/?L. The reference range was not used to interpret this result as normal/abnormal . RBC (test code = 3.22 See_Comment L [Automated 789-8) message] The sy stem which generated this result transmitted reference range : 4.26 - 5.52 10*6/?L. The reference range was not used to interpret this result as normal/abnormal . HGB (test code = 9.3 g/dL 12.2-16.4 L 718-7) HCT (test code = 28.4 % 38.4-49.3 L 4544-3) MCV (test code = 88.2 fL 81.7-95.6 787-2) MCH (test code = 28.9 pg 26.1-32.7 785-6) MCHC (test code = 32.7 g/dL 31.2-35.0 786-4) RDW-SD (test code = 45.1 fL 38.5-51.6 08994-7) RDW-CV (test code = 14.1 % 12.1-15.4 788-0) PLT (test code = 282 See_Comment [Automated 777-3) message] The sy stem which generated this result transmitted reference range : 150 - 328 10*3/ ?L. The reference r meredith was not used to interpret this result as normal/abnormal . MPV (test code = 9.0 fL 9.8-13.0 L 49890-9) NRBC/100 WBC (test 0.0 See_Comment [Automat ed code = 1526237497) message] The system which generated this result transmitted reference range : 0.0 - 10.0 /100 WBCs. The refer ence range was not u sed to interpret th is result as normal/abnormal . NRBC x10^3 (test code See_Comment [Auto mated = 3642597312) message] The s ystem which generated this result transmitted reference range : 10*3/?L. The reference range was not used to interpret this result as normal/abnormal . GRAN MAT (NEUT) % 51.6 % (test code = 770-8) IMM GRAN % (test code 0.20 % = 3862736042) LYMPH % (test code = 34.8 % 736-9) MONO % (test code = 10.8 % 5905-5) EOS % (test code = 2.2 % 713-8) BASO % (test code = 0.4 % 706-2) GRAN MAT x10^3(ANC) 2.30 10*3/uL 1.99-6.95 (test code = 3038604966) IMM GRAN x10^3 (test 0.00-0.06 code = 7965407026) LYMPH x10^3 (test code 1.55 10*3/uL 1.09-3.23 = 731-0) MONO x10^3 (test code 0.48 10*3/uL 0.36-1.02 = 742-7) EOS x10^3 (test code = 0.10 10*3/uL 0.06-0.53 711-2) BASO x10^3 (test code 0.01-0.09 = 704-7) Lab Interpretation Abnormal (test code = 02101-0) [facility] WITH [id number] 10:09:29 Test Item Value Reference Range Interpretation Comments WBC (test code = 4.46 See_Comment [Automated 3790-2) message] The sy stem which generated this result transmitted reference range : 4.20 - 10.70 10*3/?L. The reference range was not used to interpret this result as normal/abnormal . RBC (test code = 3.22 See_Comment L [Automated 067-8) message] The sy stem which generated this result transmitted reference range : 4.26 - 5.52 10*6/?L. The reference range was not used to interpret this result as normal/abnormal . HGB (test code = 9.3 g/dL 12.2-16.4 L 718-7) HCT (test code = 28.4 % 38.4-49.3 L 4544-3) MCV (test code = 88.2 fL 81.7-95.6 787-2) MCH (test code = 28.9 pg 26.1-32.7 785-6) MCHC (test code = 32.7 g/dL 31.2-35.0 786-4) RDW-SD (test code = 45.1 fL 38.5-51.6 25665-9) RDW-CV (test code = 14.1 % 12.1-15.4 788-0) PLT (test code = 282 See_Comment [Automated 777-3) message] The sy stem which generated this result transmitted reference range : 150 - 328 10*3/ ?L. The reference r meredith was not used to interpret this result as normal/abnormal . MPV (test code = 9.0 fL 9.8-13.0 L 71972-0) NRBC/100 WBC (test 0.0 See_Comment [Automat ed code = 8561815184) message] The system which generated this result transmitted reference range : 0.0 - 10.0 /100 WBCs. The refer ence range was not u sed to interpret th is result as normal/abnormal . NRBC x10^3 (test code See_Comment [Auto mated = 3895218957) message] The s ystem which generated this result transmitted reference range : 10*3/?L. The reference range was not used to interpret this result as normal/abnormal . GRAN MAT (NEUT) % 51.6 % (test code = 770-8) IMM GRAN % (test code 0.20 % = 3691118374) LYMPH % (test code = 34.8 % 736-9) MONO % (test code = 10.8 % 5905-5) EOS % (test code = 2.2 % 713-8) BASO % (test code = 0.4 % 706-2) GRAN MAT x10^3(ANC) 2.30 10*3/uL 1.99-6.95 (test code = 6982963819) IMM GRAN x10^3 (test 0.00-0.06 code = 6089512019) LYMPH x10^3 (test code 1.55 10*3/uL 1.09-3.23 = 731-0) MONO x10^3 (test code 0.48 10*3/uL 0.36-1.02 = 742-7) EOS x10^3 (test code = 0.10 10*3/uL 0.06-0.53 711-2) BASO x10^3 (test code 0.01-0.09 = 704-7) Lab Interpretation Abnormal (test code = 60404-0) [facility] [id number] 13:52:51 Test Item Value Reference Range Interpretation Comments LACTIC ACID (test code = 1.53 mmol/L 0.50-2.20 1833323707) Lab Interpretation (test code = Normal 81281-6) [id number] 13:52:51 Test Item Value Reference Range Interpretation Comments LACTIC ACID (test code = 1.53 mmol/L 0.50-2.20 8184605568) Lab Interpretation (test code = Normal 23770-3) [facility] METABOLIC PANEL (NA, K, CL, CO2, GLUCOSE, BUN, CREATININE, CA)2022-11-29 09:16:40 Test Item Value Reference Range Interpretation Comments NA (test code = 130 mmol/L 135-145 L 9460151355) K (test code = 4.6 mmol/L 3.5-5.0 1391311411) CL (test code = 106 mmol/L 98-108 0261699195) CO2 TOTAL (test code = 20 mmol/L 23-31 L 6989720827) AGAP (test code = 4 2-16 0673107825) BUN (test code = 22 mg/dL 7-23 5651604952) GLUCOSE (test code = 79 mg/dL 70-110 0639591710) CREATININE (test code = 1.24 mg/dL 0.60-1.25 7971006031) CALCIUM (test code = 8.1 mg/dL 8.6-10.6 L 0301436570) eGFR (test code = 61.2 mL/min/1.73m2 4461499160) GILBERTO (test code = GILBERTO) Association of [...] tests). Lab Interpretation Abnormal (test code = 58133-5) [facility] 09:16:40 Test Item Value Reference Range Interpretation Comments MAGNESIUM (test code = 0757512902) 2.0 mg/dL 1.7-2.4 Lab Interpretation (test code = Normal 58101-7) [facility] (NA, K, CL, CO2, GLUCOSE, BUN, CREATININE, CA)2022-11-29 09:16:40 Test Item Value Reference Range Interpretation Comments NA (test code = 130 mmol/L 135-145 L 1597899800) K (test code = 4.6 mmol/L 3.5-5.0 4094750849) CL (test code = 106 mmol/L 98-108 7314561043) CO2 TOTAL (test code = 20 mmol/L 23-31 L 5735278643) AGAP (test code = 4 2-16 2974556560) BUN (test code = 22 mg/dL 7-23 8860682314) GLUCOSE (test code = 79 mg/dL 70-110 5474664159) CREATININE (test code = 1.24 mg/dL 0.60-1.25 3059307184) CALCIUM (test code = 8.1 mg/dL 8.6-10.6 L 9116300679) eGFR (test code = 61.2 mL/min/1.73m2 3787302691) GILBERTO (test code = GILBERTO) Association of [...] tests). Lab Interpretation Abnormal (test code = 05913-7) [facility] 09:16:40 Test Item Value Reference Range Interpretation Comments MAGNESIUM (test code = 5618462224) 2.0 mg/dL 1.7-2.4 Lab Interpretation (test code = Normal 16030-8) [facility] WITH [id number] 08:51:40 Test Item Value Reference Range Interpretation Comments WBC (test code = 4.77 See_Comment [Automated 2681-2) message] The sy stem which generated this result transmitted reference range : 4.20 - 10.70 10*3/?L. The reference range was not used to interpret this result as normal/abnormal . RBC (test code = 3.33 See_Comment L [Automated 789-8) message] The sy stem which generated this result transmitted reference range : 4.26 - 5.52 10*6/?L. The reference range was not used to interpret this result as normal/abnormal . HGB (test code = 9.7 g/dL 12.2-16.4 L 718-7) HCT (test code = 29.2 % 38.4-49.3 L 4544-3) MCV (test code = 87.7 fL 81.7-95.6 787-2) MCH (test code = 29.1 pg 26.1-32.7 785-6) MCHC (test code = 33.2 g/dL 31.2-35.0 786-4) RDW-SD (test code = 44.9 fL 38.5-51.6 01040-7) RDW-CV (test code = 14.3 % 12.1-15.4 788-0) PLT (test code = 287 See_Comment [Automated 777-3) message] The sy stem which generated this result transmitted reference range : 150 - 328 10*3/ ?L. The reference r meredith was not used to interpret this result as normal/abnormal . MPV (test code = 8.9 fL 9.8-13.0 L 98372-7) NRBC/100 WBC (test 0.0 See_Comment [Automat ed code = 3282075677) message] The system which generated this result transmitted reference range : 0.0 - 10.0 /100 WBCs. The refer ence range was not u sed to interpret th is result as normal/abnormal . NRBC x10^3 (test code See_Comment [Auto mated = 9795877518) message] The s ystem which generated this result transmitted reference range : 10*3/?L. The reference range was not used to interpret this result as normal/abnormal . GRAN MAT (NEUT) % 52.5 % (test code = 770-8) IMM GRAN % (test code 0.20 % = 3101563115) LYMPH % (test code = 35.2 % 736-9) MONO % (test code = 9.4 % 5905-5) EOS % (test code = 2.3 % 713-8) BASO % (test code = 0.4 % 706-2) GRAN MAT x10^3(ANC) 2.50 10*3/uL 1.99-6.95 (test code = 7901127857) IMM GRAN x10^3 (test 0.00-0.06 code = 3773967560) LYMPH x10^3 (test code 1.68 10*3/uL 1.09-3.23 = 731-0) MONO x10^3 (test code 0.45 10*3/uL 0.36-1.02 = 742-7) EOS x10^3 (test code = 0.11 10*3/uL 0.06-0.53 711-2) BASO x10^3 (test code 0.01-0.09 = 704-7) Lab Interpretation Abnormal (test code = 28975-7) [facility] WITH [id number] 08:51:40 Test Item Value Reference Range Interpretation Comments WBC (test code = 4.77 See_Comment [Automated 6490-2) message] The sy stem which generated this result transmitted reference range : 4.20 - 10.70 10*3/?L. The reference range was not used to interpret this result as normal/abnormal . RBC (test code = 3.33 See_Comment L [Automated 299-8) message] The sy stem which generated this result transmitted reference range : 4.26 - 5.52 10*6/?L. The reference range was not used to interpret this result as normal/abnormal . HGB (test code = 9.7 g/dL 12.2-16.4 L 718-7) HCT (test code = 29.2 % 38.4-49.3 L 4544-3) MCV (test code = 87.7 fL 81.7-95.6 787-2) MCH (test code = 29.1 pg 26.1-32.7 785-6) MCHC (test code = 33.2 g/dL 31.2-35.0 786-4) RDW-SD (test code = 44.9 fL 38.5-51.6 89952-4) RDW-CV (test code = 14.3 % 12.1-15.4 788-0) PLT (test code = 287 See_Comment [Automated 777-3) message] The sy stem which generated this result transmitted reference range : 150 - 328 10*3/ ?L. The reference r meredith was not used to interpret this result as normal/abnormal . MPV (test code = 8.9 fL 9.8-13.0 L 32626-6) NRBC/100 WBC (test 0.0 See_Comment [Automat ed code = 8777270561) message] The system which generated this result transmitted reference range : 0.0 - 10.0 /100 WBCs. The refer ence range was not u sed to interpret th is result as normal/abnormal . NRBC x10^3 (test code See_Comment [Auto mated = 5283094435) message] The s ystem which generated this result transmitted reference range : 10*3/?L. The reference range was not used to interpret this result as normal/abnormal . GRAN MAT (NEUT) % 52.5 % (test code = 770-8) IMM GRAN % (test code 0.20 % = 1732246320) LYMPH % (test code = 35.2 % 736-9) MONO % (test code = 9.4 % 5905-5) EOS % (test code = 2.3 % 713-8) BASO % (test code = 0.4 % 706-2) GRAN MAT x10^3(ANC) 2.50 10*3/uL 1.99-6.95 (test code = 1331604444) IMM GRAN x10^3 (test 0.00-0.06 code = 5619820985) LYMPH x10^3 (test code 1.68 10*3/uL 1.09-3.23 = 731-0) MONO x10^3 (test code 0.45 10*3/uL 0.36-1.02 = 742-7) EOS x10^3 (test code = 0.11 10*3/uL 0.06-0.53 711-2) BASO x10^3 (test code 0.01-0.09 = 704-7) Lab Interpretation Abnormal (test code = 29921-0) [facility] 18:32[facility]29 Test Item Value Reference Range Interpretation Comments PALB (test code = 30139-5) 28.4 mg/dL 18.0-45.0 Lab Interpretation (test code = Normal 47215-6) [facility] 18:32:29 Test Item Value Reference Range Interpretation Comments PALB (test code = 65555-9) 28.4 mg/dL 18.0-45.0 Lab Interpretation (test code = Normal 57571-9) [facility] 18:22:51 Test Item Value Reference Range Interpretation Comments ALBUMIN (test code = 6697864729) 3.7 g/dL 3.5-5.0 Lab Interpretation (test code = Normal 37607-3) [facility] 18:22:51 Test Item Value Reference Range Interpretation Comments ALBUMIN (test code = 8643223935) 3.7 g/dL 3.5-5.0 Lab Interpretation (test code = Normal 88899-4) [facility] 08:07:43 Test Item Value Reference Range Interpretation Comments MAGNESIUM (test code = 1696969059) 1.6 mg/dL 1.7-2.4 L Lab Interpretation (test code = Abnormal 05578-8) [facility] (NA, K, CL, CO2, GLUCOSE, BUN, CREATININE, CA)2022-11-28 08:07:43 Test Item Value Reference Range Interpretation Comments NA (test code = 129 mmol/L 135-145 L 4522262896) K (test code = 4.8 mmol/L 3.5-5.0 1867665265) CL (test code = 101 mmol/L 98-108 3692902535) CO2 TOTAL (test code = 20 mmol/L 23-31 L 4343627861) AGAP (test code = 8 2-16 8868991003) BUN (test code = 37 mg/dL 7-23 H 5712960084) GLUCOSE (test code = 92 mg/dL 70-110 9420693044) CREATININE (test code = 2.09 mg/dL 0.60-1.25 H 8953978819) CALCIUM (test code = 8.3 mg/dL 8.6-10.6 L 0501715455) eGFR (test code = 33.5 mL/min/1.73m2 7652908274) GILBERTO (test code = GILBERTO) Association of [...] tests). Lab Interpretation Abnormal (test code = 89726-8) [facility] 08:07:43 Test Item Value Reference Range Interpretation Comments MAGNESIUM (test code = 6245623835) 1.6 mg/dL 1.7-2.4 L Lab Interpretation (test code = Abnormal 37729-8) [facility] (NA, K, CL, CO2, GLUCOSE, BUN, CREATININE, CA)2022-11-28 08:07:43 Test Item Value Reference Range Interpretation Comments NA (test code = 129 mmol/L 135-145 L 0567023738) K (test code = 4.8 mmol/L 3.5-5.0 3433796122) CL (test code = 101 mmol/L 98-108 8730756106) CO2 TOTAL (test code = 20 mmol/L 23-31 L 7564481109) AGAP (test code = 8 2-16 5151373122) BUN (test code = 37 mg/dL 7-23 H 0934706169) GLUCOSE (test code = 92 mg/dL 70-110 4104861354) CREATININE (test code = 2.09 mg/dL 0.60-1.25 H 2805713941) CALCIUM (test code = 8.3 mg/dL 8.6-10.6 L 3386431685) eGFR (test code = 33.5 mL/min/1.73m2 8167227347) GILBERTO (test code = GILBERTO) Association of [...] tests). Lab Interpretation Abnormal (test code = 60453-5) [facility] Rxzav0113-93-20 21:10:50 Test Item Value Reference Range Interpretation Comments LACTIC ACID (test code = 1.18 mmol/L 0.50-2.20 3425364244) Lab Interpretation (test code = Normal 66735-3) [facility] Cgkpp6866-04-13 21:10:50 Test Item Value Reference Range Interpretation Comments LACTIC ACID (test code = 1.18 mmol/L 0.50-2.20 6565427566) Lab Interpretation (test code = Normal 36411-8) [facility] METABOLIC PANEL (NA, K, CL, CO2, GLUCOSE, BUN, CREATININE, CA)2022-11-27 19:07:08 Test Item Value Reference Range Interpretation Comments NA (test code = 131 mmol/L 135-145 L 2028696899) K (test code = 4.5 mmol/L 3.5-5.0 3086709570) CL (test code = 103 mmol/L 98-108 2783288943) CO2 TOTAL (test code = 18 mmol/L 23-31 L 3539472212) AGAP (test code = 10 2-16 7688014268) BUN (test code = 42 mg/dL 7-23 H 5613327499) GLUCOSE (test code = 120 mg/dL 70-110 H 4892154803) CREATININE (test code = 3.28 mg/dL 0.60-1.25 H 1823847787) CALCIUM (test code = 9.1 mg/dL 8.6-10.6 5921272687) eGFR (test code = 19.9 mL/min/1.73m2 7099897680) GILBERTO (test code = GILBERTO) Association of [...] tests). Lab Interpretation Abnormal (test code = 52022-3) [facility] METABOLIC PANEL (NA, K, CL, CO2, GLUCOSE, BUN, CREATININE, CA)2022-11-27 19:07:08 Test Item Value Reference Range Interpretation Comments NA (test code = 131 mmol/L 135-145 L 7300920874) K (test code = 4.5 mmol/L 3.5-5.0 4678449908) CL (test code = 103 mmol/L 98-108 0981417983) CO2 TOTAL (test code = 18 mmol/L 23-31 L 3303449246) AGAP (test code = 10 2-16 2631156381) BUN (test code = 42 mg/dL 7-23 H 4632667068) GLUCOSE (test code = 120 mg/dL 70-110 H 1387227203) CREATININE (test code = 3.28 mg/dL 0.60-1.25 H 6299883968) CALCIUM (test code = 9.1 mg/dL 8.6-10.6 7775953075) eGFR (test code = 19.9 mL/min/1.73m2 6773368002) GILBERTO (test code = GILBERTO) Association of [...] tests). Lab Interpretation Abnormal (test code = 04147-6) [facility]. METABOLIC PANEL ([id number])2022-11-27 14:49:21 Test Item Value Reference Range Interpretation Comments NA (test code = 131 mmol/L 135-145 L 6554994398) K (test code = 6.2 mmol/L 3.5-5.0 HH 9605424618) CL (test code = 95 mmol/L 98-108 L 1821433613) CO2 TOTAL (test code = 19 mmol/L 23-31 L 7076627212) AGAP (test code = 17 2-16 H 5162069667) BUN (test code = 43 mg/dL 7-23 H 8388781767) GLUCOSE (test code = 74 mg/dL 70-110 3437303179) CREATININE (test code = 4.39 mg/dL 0.60-1.25 H 5379762475) TOTAL BILI (test code = 0.6 mg/dL 0.1-1.7 1020965539) CALCIUM (test code = 10.9 mg/dL 8.6-10.6 H 3364614342) T PROTEIN (test code = 9.1 g/dL 6.3-8.2 H 6317145656) ALBUMIN (test code = 5.7 g/dL 3.5-5.0 H 5733220846) ALK PHOS (test code = 97 U/L 34-122 0515736625) ALTv (test code = 43 U/L 5-50 1742-6) AST(SGOT) (test code = 29 U/L 13-40 0250760159) eGFR (test code = 14.2 mL/min/1.73m2 5849198359) GILBERTO (test code = GILBERTO) Association of [...] tests). Lab Interpretation Abnormal (test code = 32987-8) [facility]. METABOLIC PANEL (43835)2022-11-27 14:49:21 Test Item Value Reference Range Interpretation Comments NA (test code = 131 mmol/L 135-145 L 5921060682) K (test code = 6.2 mmol/L 3.5-5.0 HH 4411446744) CL (test code = 95 mmol/L 98-108 L 1735383957) CO2 TOTAL (test code = 19 mmol/L 23-31 L 3130164497) AGAP (test code = 17 2-16 H 9641921239) BUN (test code = 43 mg/dL 7-23 H 6995921565) GLUCOSE (test code = 74 mg/dL 70-110 2860390001) CREATININE (test code = 4.39 mg/dL 0.60-1.25 H 5333051647) TOTAL BILI (test code = 0.6 mg/dL 0.1-1.6 6040932438) CALCIUM (test code = 10.9 mg/dL 8.6-10.6 H 2078521707) T PROTEIN (test code = 9.1 g/dL 6.3-8.2 H 6899884635) ALBUMIN (test code = 5.7 g/dL 3.5-5.0 H 4933047360) ALK PHOS (test code = 97 U/L 34-122 9570454759) ALTv (test code = 43 U/L 5-50 1742-6) AST(SGOT) (test code = 29 U/L 13-40 9259851634) eGFR (test code = 14.2 mL/min/1.73m2 4634208075) GILBERTO (test code = GILBERTO) Association of [...] tests). Lab Interpretation Abnormal (test code = 22020-5) [facility] [id number] 14:33:54 Test Item Value Reference Range Interpretation Comments TROPONIN I (test code = 0.003 ng/mL <=0.034 2792460372) GILBERTO (test code = GILBERTO) Reference (Normal) Range (defined by the 99th percentile reference [...] biotin. Lab Interpretation Normal (test code = 62773-9) [facility] [id number] 14:33:54 Test Item Value Reference Range Interpretation Comments TROPONIN I (test code = 0.003 ng/mL <=0.034 3029558471) GILBERTO (test code = GILBERTO) Reference (Normal) Range (defined by the 99th percentile reference [...] biotin. Lab Interpretation Normal (test code = 70246-1) [facility] 14:23:47 Test Item Value Reference Range Interpretation Comments MAGNESIUM (test code = 1948815433) 2.2 mg/dL 1.7-2.4 Lab Interpretation (test code = Normal 49460-5) [facility] 14:23:47 Test Item Value Reference Range Interpretation Comments PHOSPHORUS (test code = 0150375925) 8.1 mg/dL 2.5-5.0 H Lab Interpretation (test code = Abnormal 46869-8) [facility] 14:23:47 Test Item Value Reference Range Interpretation Comments MAGNESIUM (test code = 1784354036) 2.2 mg/dL 1.7-2.4 Lab Interpretation (test code = Normal 99526-7) [facility] 14:23:47 Test Item Value Reference Range Interpretation Comments PHOSPHORUS (test code = 5039143057) 8.1 mg/dL 2.5-5.0 H Lab Interpretation (test code = Abnormal 46407-2) [facility] WITH [id number] 14:09:46 Test Item Value Reference Range Interpretation Comments WBC (test code = 10.08 See_Comment [Automated 5090-2) message] The sy stem which generated this result transmitted reference range : 4.20 - 10.70 10*3/?L. The reference range was not used to interpret this result as normal/abnormal . RBC (test code = 4.93 See_Comment [Automated 113-8) message] The sy stem which generated this result transmitted reference range : 4.26 - 5.52 10*6/?L. The reference range was not used to interpret this result as normal/abnormal . HGB (test code = 14.5 g/dL 12.2-16.4 718-7) HCT (test code = 43.4 % 38.4-49.3 4544-3) MCV (test code = 88.0 fL 81.7-95.6 787-2) MCH (test code = 29.4 pg 26.1-32.7 785-6) MCHC (test code = 33.4 g/dL 31.2-35.0 786-4) RDW-SD (test code = 45.6 fL 38.5-51.6 19696-2) RDW-CV (test code = 14.5 % 12.1-15.4 788-0) PLT (test code = 454 See_Comment H [Automated 777-3) message] The sy stem which generated this result transmitted reference range : 150 - 328 10*3/ ?L. The reference r meredith was not used to interpret this result as normal/abnormal . MPV (test code = 8.9 fL 9.8-13.0 L 75102-5) NRBC/100 WBC (test 0.0 See_Comment [Automat ed code = 9840063458) message] The system which generated this result transmitted reference range : 0.0 - 10.0 /100 WBCs. The refer ence range was not u sed to interpret th is result as normal/abnormal . NRBC x10^3 (test code See_Comment [Auto mated = [id number]) message] The s ystem which generated this result transmitted reference range : 10*3/?L. The reference range was not used to interpret this result as normal/abnormal . GRAN MAT (NEUT) % 73.5 % (test code = 770-8) IMM GRAN % (test code 1.20 % = [id number]) LYMPH % (test code = 15.6 % 736-9) MONO % (test code = 8.6 % 5905-5) EOS % (test code = 0.6 % 713-8) BASO % (test code = 0.5 % 706-2) GRAN MAT x10^3(ANC) 7.41 10*3/uL 1.99-6.95 H (test code = [id number]) IMM GRAN x10^3 (test 0.12 10*3/uL 0.00-0.06 H code = [id number]) LYMPH x10^3 (test code 1.57 10*3/uL 1.09-3.23 = 731-0) MONO x10^3 (test code 0.87 10*3/uL 0.36-1.02 = 742-7) EOS x10^3 (test code = 0.06 10*3/uL 0.06-0.53 711-2) BASO x10^3 (test code 0.05 10*3/uL 0.01-0.09 = 704-7) Lab Interpretation Abnormal (test code = 19040-1) [facility] WITH [id number] 14:09:46 Test Item Value Reference Range Interpretation Comments WBC (test code = 10.08 See_Comment [Automated 6690-2) message] The sy stem which generated this result transmitted reference range : 4.20 - 10.70 10*3/?L. The reference range was not used to interpret this result as normal/abnormal . RBC (test code = 4.93 See_Comment [Automated 789-8) message] The sy stem which generated this result transmitted reference range : 4.26 - 5.52 10*6/?L. The reference range was not used to interpret this result as normal/abnormal . HGB (test code = 14.5 g/dL 12.2-16.4 718-7) HCT (test code = 43.4 % 38.4-49.3 4544-3) MCV (test code = 88.0 fL 81.7-95.6 787-2) MCH (test code = 29.4 pg 26.1-32.7 785-6) MCHC (test code = 33.4 g/dL 31.2-35.0 786-4) RDW-SD (test code = 45.6 fL 38.5-51.6 12565-5) RDW-CV (test code = 14.5 % 12.1-15.4 788-0) PLT (test code = 454 See_Comment H [Automated 777-3) message] The sy stem which generated this result transmitted reference range : 150 - 328 10*3/ ?L. The reference r meredith was not used to interpret this result as normal/abnormal . MPV (test code = 8.9 fL 9.8-13.0 L 90661-2) NRBC/100 WBC (test 0.0 See_Comment [Automat ed code = 7315176529) message] The system which generated this result transmitted reference range : 0.0 - 10.0 /100 WBCs. The refer ence range was not u sed to interpret th is result as normal/abnormal . NRBC x10^3 (test code See_Comment [Auto mated = 1819771870) message] The s ystem which generated this result transmitted reference range : 10*3/?L. The reference range was not used to interpret this result as normal/abnormal . GRAN MAT (NEUT) % 73.5 % (test code = 770-8) IMM GRAN % (test code 1.20 % = 6295011344) LYMPH % (test code = 15.6 % 736-9) MONO % (test code = 8.6 % 5905-5) EOS % (test code = 0.6 % 713-8) BASO % (test code = 0.5 % 706-2) GRAN MAT x10^3(ANC) 7.41 10*3/uL 1.99-6.95 H (test code = 8317146969) IMM GRAN x10^3 (test 0.12 10*3/uL 0.00-0.06 H code = 0828280273) LYMPH x10^3 (test code 1.57 10*3/uL 1.09-3.23 = 731-0) MONO x10^3 (test code 0.87 10*3/uL 0.36-1.02 = 742-7) EOS x10^3 (test code = 0.06 10*3/uL 0.06-0.53 711-2) BASO x10^3 (test code 0.05 10*3/uL 0.01-0.09 = 704-7) Lab Interpretation Abnormal (test code = 77995-9) [facility] [id number] 14:08:40 Test Item Value Reference Range Interpretation Comments LACTIC ACID (test code = 2.99 mmol/L 0.50-2.20 H QUE S 1238274067) Lab Interpretation (test code = Abnormal 56618-1) [facility] [id number] 14:08:40 Test Item Value Reference Range Interpretation Comments LACTIC ACID (test code = 2.99 mmol/L 0.50-2.20 H QUE S 3812267122) Lab Interpretation (test code = Abnormal 14790-7) [facility] [id number] 10:10:43 Test Item Value Reference Range Interpretation Comments WBC (test code = 3.72 See_Comment L [Automated 6690-2) message] The sy stem which generated this result transmitted reference range : 4.20 - 10.70 10*3/?L. The reference range was not used to interpret this result as normal/abnormal . RBC (test code = 3.24 See_Comment L [Automated 789-8) message] The sy stem which generated this result transmitted reference range : 4.26 - 5.52 10*6/?L. The reference range was not used to interpret this result as normal/abnormal . HGB (test code = 9.5 g/dL 12.2-16.4 L 718-7) HCT (test code = 28.3 % 38.4-49.3 L 4544-3) MCV (test code = 87.3 fL 81.7-95.6 787-2) MCH (test code = 29.3 pg 26.1-32.7 785-6) MCHC (test code = 33.6 g/dL 31.2-35.0 786-4) RDW-SD (test code = 44.1 fL 38.5-51.6 27444-5) RDW-CV (test code = 13.9 % 12.1-15.4 788-0) PLT (test code = 274 See_Comment [Automated 777-3) message] The sy stem which generated this result transmitted reference range : 150 - 328 10*3/ ?L. The reference r meredith was not used to interpret this result as normal/abnormal . MPV (test code = 9.0 fL 9.8-13.0 L 61863-5) NRBC/100 WBC (test 0.0 See_Comment [Automat ed code = 4517798878) message] The system which generated this result transmitted reference range : 0.0 - 10.0 /100 WBCs. The refer ence range was not u sed to interpret th is result as normal/abnormal . NRBC x10^3 (test code See_Comment [Auto mated = 3167550269) message] The s ystem which generated this result transmitted reference range : 10*3/?L. The reference range was not used to interpret this result as normal/abnormal . GRAN MAT (NEUT) % 38.7 % (test code = 770-8) IMM GRAN % (test code 0.00 % = 8651357347) LYMPH % (test code = 48.7 % 736-9) MONO % (test code = 10.2 % 5905-5) EOS % (test code = 1.9 % 713-8) BASO % (test code = 0.5 % 706-2) GRAN MAT x10^3(ANC) 1.44 10*3/uL 1.99-6.95 L (test code = 6917205963) IMM GRAN x10^3 (test 0.00-0.06 code = 8056450029) LYMPH x10^3 (test code 1.81 10*3/uL 1.09-3.23 = 731-0) MONO x10^3 (test code 0.38 10*3/uL 0.36-1.02 = 742-7) EOS x10^3 (test code = 0.07 10*3/uL 0.06-0.53 711-2) BASO x10^3 (test code 0.01-0.09 = 704-7) Lab Interpretation Abnormal (test code = 75243-2) [facility] METABOLIC PANEL (NA, K, CL, CO2, GLUCOSE, BUN, CREATININE, CA)2022-11-22 10:02:02 Test Item Value Reference Range Interpretation Comments NA (test code = 130 mmol/L 135-145 L 6548732891) K (test code = 4.7 mmol/L 3.5-5.0 4568742361) CL (test code = 103 mmol/L 98-108 4630588143) CO2 TOTAL (test code = 23 mmol/L 23-31 8890231690) AGAP (test code = 4 2-16 6562442855) BUN (test code = 16 mg/dL 7-23 0620633688) GLUCOSE (test code = 81 mg/dL 70-110 6773630877) CREATININE (test code = 1.23 mg/dL 0.60-1.25 1855775634) CALCIUM (test code = 7.7 mg/dL 8.6-10.6 L 3660118031) eGFR (test code = 61.8 mL/min/1.73m2 8060475885) GILBERTO (test code = GILBERTO) Association of [...] tests). Lab Interpretation Abnormal (test code = 59197-5) [facility]2023-04-01 10:02:02 Test Item Value Reference Range Interpretation Comments MAGNESIUM (test code = 1321792768) 1.6 mg/dL 1.7-2.4 L Lab Interpretation (test code = Abnormal 79832-3) [facility]2023-03-31 05:39:05 Test Item Value Reference Range Interpretation Comments MAGNESIUM (test code = 4084978324) 1.4 mg/dL 1.7-2.4 L Lab Interpretation (test code = Abnormal 64901-9) [facility] (NA, K, CL, CO2, GLUCOSE, BUN, CREATININE, CA)2022-11-21 05:39:04 Test Item Value Reference Range Interpretation Comments NA (test code = 126 mmol/L 135-145 L 4524380385) K (test code = 4.4 mmol/L 3.5-5.0 1929968634) CL (test code = 103 mmol/L 98-108 6932657477) CO2 TOTAL (test code = 18 mmol/L 23-31 L 2288835820) AGAP (test code = 5 2-16 4373919815) BUN (test code = 32 mg/dL 7-23 H 0313604524) GLUCOSE (test code = 80 mg/dL 70-110 9175808736) CREATININE (test code = 1.38 mg/dL 0.60-1.25 H 0828594329) CALCIUM (test code = 7.5 mg/dL 8.6-10.6 L 8723792826) eGFR (test code = 54.1 mL/min/1.73m2 3050618653) GILBERTO (test code = GILBERTO) Association of [...] tests). Lab Interpretation Abnormal (test code = 38438-3) [facility] WITH [id number] 05:19:03 Test Item Value Reference Range Interpretation Comments WBC (test code = 4.91 See_Comment [Automated 6690-2) message] The sy stem which generated this result transmitted reference range : 4.20 - 10.70 10*3/?L. The reference range was not used to interpret this result as normal/abnormal . RBC (test code = 3.32 See_Comment L [Automated 789-8) message] The sy stem which generated this result transmitted reference range : 4.26 - 5.52 10*6/?L. The reference range was not used to interpret this result as normal/abnormal . HGB (test code = 9.6 g/dL 12.2-16.4 L 718-7) HCT (test code = 28.7 % 38.4-49.3 L 4544-3) MCV (test code = 86.4 fL 81.7-95.6 787-2) MCH (test code = 28.9 pg 26.1-32.7 785-6) MCHC (test code = 33.4 g/dL 31.2-35.0 786-4) RDW-SD (test code = 43.2 fL 38.5-51.6 80592-7) RDW-CV (test code = 13.6 % 12.1-15.4 788-0) PLT (test code = 272 See_Comment [Automated 777-3) message] The sy stem which generated this result transmitted reference range : 150 - 328 10*3/ ?L. The reference r meredith was not used to interpret this result as normal/abnormal . MPV (test code = 9.0 fL 9.8-13.0 L 41895-9) NRBC/100 WBC (test 0.0 See_Comment [Automat ed code = 5303257042) message] The system which generated this result transmitted reference range : 0.0 - 10.0 /100 WBCs. The refer ence range was not u sed to interpret th is result as normal/abnormal . NRBC x10^3 (test code See_Comment [Auto mated = 6130957255) message] The s ystem which generated this result transmitted reference range : 10*3/?L. The reference range was not used to interpret this result as normal/abnormal . GRAN MAT (NEUT) % 51.1 % (test code = 770-8) IMM GRAN % (test code 0.20 % = 3380720702) LYMPH % (test code = 37.3 % 736-9) MONO % (test code = 10.0 % 5905-5) EOS % (test code = 1.0 % 713-8) BASO % (test code = 0.4 % 706-2) GRAN MAT x10^3(ANC) 2.51 10*3/uL 1.99-6.95 (test code = 6545478403) IMM GRAN x10^3 (test 0.00-0.06 code = 3723351190) LYMPH x10^3 (test code 1.83 10*3/uL 1.09-3.23 = 731-0) MONO x10^3 (test code 0.49 10*3/uL 0.36-1.02 = 742-7) EOS x10^3 (test code = 0.05 10*3/uL 0.06-0.53 L 711-2) BASO x10^3 (test code 0.01-0.09 = 704-7) Lab Interpretation Abnormal (test code = 74625-8) [facility] LACTIC [id number] 05:15:42 Test Item Value Reference Range Interpretation Comments PH (test code = 7.32 7.32-7.42 1405882060) PCO2 PANKAJ (test code = 32 See_Comment L [Auto mated 5563773226) message] The sy stem which generated this result transmitted reference range : 41 - 51 mmHg. The reference range was not used to interpret this result as normal/abnormal . PO2 PANKAJ (test code = 45 See_Comment H [Autom ated 9453557922) message] The sy stem which generated this result transmitted reference range : 25 - 40 mmHg. The reference range was not used to interpret this result as normal/abnormal . HCO3 PANKAJ (test code = 16 See_Comment L [Auto mated 8234955489) message] The sy stem which generated this result transmitted reference range : 24 - 28 mEq/L. The reference range was not used to interpret this result as normal/abnormal . AC VBE(BEAKER) (test -8.8 mEq/L code = 7747427869) THB PANKAJ (test code = 11.2 g/dL 13.5-18.0 L 8961735412) %O2HB PANKAJ (test code = 80.5 % 52.0-63.0 H 4175738098) %COHB PANKAJ (test code = 0.1 % 0.0-1.5 2606919025) %METHB PANKAJ (test code = 0.3 % 0.4-1.5 L 4543168354) VOL%O2 PANKAJ (test code = 12.7 % 6.0-12.0 H 7914806912) NA (test code = 126 mmol/L 135-145 L 8844282419) K+ (test code = 4.1 mmol/L 3.5-5.0 5943813211) AC CA IONZ (test code = 4.60 mg/dL 4.50-5.30 5422723081) GLUCOSE (test code = 78 mg/dL 70-110 9331226896) LACTIC ACID (test code 1.07 mmol/L 0.50-2.20 = 5634773270) Lab Interpretation Abnormal (test code = 62452-9) [id number] 22:34:33 Test Item Value Reference Range Interpretation Comments FREE T4 (test code = 1.10 See_Comment [Autom ated message] 9931706648) The system [employer] generated this result transmitted ref erence range: 0.78 - 2 .20 ng/dL:. The ref erence range was not u sed to interpret this result as normal/abnor mal. Lab Interpretation (test Normal code = 75083-7) [facility] STIMULATING [id number] 21:13:59 Test Item Value Reference Range Interpretation Comments TSH (test code = 4.81 See_Comment H Biotin has been 8859066581) reported to cau se a negative bias, interpret resul ts relative to pat ient's use of biotin. [Automated mess age] The system [employer] generated this result transmitted ref erence range: 0.45 - 4 .70 mIU/L. The refe rence range was not u sed to interpret this result as normal/abnor mal. Lab Interpretation (test Abnormal code = 30697-6) [facility] Whole [id number] 15:00:25 Test Item Value Reference Range Interpretation Comments LACTIC ACID (test code = 2.76 mmol/L 0.50-2.20 H 5274966940) Lab Interpretation (test code = Abnormal 89295-5) [facility]2023-[facility]-30 13:27:44 Test Item Value Reference Range Interpretation Comments ALBUMIN (test code = 6816611539) 3.4 g/dL 3.5-5.0 L Lab Interpretation (test code = Abnormal 79560-4) [facility] Whole [id number] 11:43:05 Test Item Value Reference Range Interpretation Comments LACTIC ACID (test code = 2.56 mmol/L 0.50-2.20 H QUE S 4926733920) Lab Interpretation (test code = Abnormal 30973-7) [facility]CORTISOL [id number] 11:22:18 Test Item Value Reference Range Interpretation Comments MARIAM AM (test code = 4.9 ug/dL 4.5-23.0 2070073248) GILBERTO (test code = GILBERTO) Biotin has been reported to cause a positive bias, interpret results relative to patient's use of biotin. Lab Interpretation (test Normal code = 34477-1) [facility] WITH [id number] 11:14:33 Test Item Value Reference Range Interpretation Comments WBC (test code = 4.45 See_Comment [Automated 7104-2) message] The sy stem which generated this result transmitted reference range : 4.20 - 10.70 10*3/?L. The reference range was not used to interpret this result as normal/abnormal . RBC (test code = 3.53 See_Comment L [Automated 368-8) message] The sy stem which generated this result transmitted reference range : 4.26 - 5.52 10*6/?L. The reference range was not used to interpret this result as normal/abnormal . HGB (test code = 10.3 g/dL 12.2-16.4 L 718-7) HCT (test code = 30.1 % 38.4-49.3 L 4544-3) MCV (test code = 85.3 fL 81.7-95.6 787-2) MCH (test code = 29.2 pg 26.1-32.7 785-6) MCHC (test code = 34.2 g/dL 31.2-35.0 786-4) RDW-SD (test code = 42.9 fL 38.5-51.6 13745-1) RDW-CV (test code = 13.9 % 12.1-15.4 788-0) PLT (test code = 310 See_Comment [Automated 777-3) message] The sy stem which generated this result transmitted reference range : 150 - 328 10*3/ ?L. The reference r meredith was not used to interpret this result as normal/abnormal . MPV (test code = 9.2 fL 9.8-13.0 L 50481-2) NRBC/100 WBC (test 0.0 See_Comment [Automat ed code = 8916869958) message] The system which generated this result transmitted reference range : 0.0 - 10.0 /100 WBCs. The refer ence range was not u sed to interpret th is result as normal/abnormal . NRBC x10^3 (test code See_Comment [Auto mated = 7443962410) message] The s ystem which generated this result transmitted reference range : 10*3/?L. The reference range was not used to interpret this result as normal/abnormal . GRAN MAT (NEUT) % 53.3 % (test code = 770-8) IMM GRAN % (test code 0.20 % = 5315458436) LYMPH % (test code = 36.2 % 736-9) MONO % (test code = 8.8 % 5905-5) EOS % (test code = 1.1 % 713-8) BASO % (test code = 0.4 % 706-2) GRAN MAT x10^3(ANC) 2.37 10*3/uL 1.99-6.95 (test code = 2375129072) IMM GRAN x10^3 (test 0.00-0.06 code = 5946937417) LYMPH x10^3 (test code 1.61 10*3/uL 1.09-3.23 = 731-0) MONO x10^3 (test code 0.39 10*3/uL 0.36-1.02 = 742-7) EOS x10^3 (test code = 0.05 10*3/uL 0.06-0.53 L 711-2) BASO x10^3 (test code 0.01-0.09 = 704-7) Lab Interpretation Abnormal (test code = 17523-4) [facility] METABOLIC PANEL (NA, K, CL, CO2, GLUCOSE, BUN, CREATININE, CA)2022-11-20 10:49:51 Test Item Value Reference Range Interpretation Comments NA (test code = 125 mmol/L 135-145 L 8167702080) K (test code = 4.7 mmol/L 3.5-5.0 Slight 0691873443) hemolysis CL (test code = 104 mmol/L 98-108 6506920766) CO2 TOTAL (test code 13 mmol/L 23-31 L = 8525052570) AGAP (test code = 8 2-16 5907312265) BUN (test code = 60 mg/dL 7-23 H Slight 7687871159) hemolysis GLUCOSE (test code = 88 mg/dL 70-110 1376573466) CREATININE (test code 1.97 mg/dL 0.60-1.25 H = 7295458000) CALCIUM (test code = 7.7 mg/dL 8.6-10.6 L 3039657726) eGFR (test code = 35.9 mL/min/1.73m2 8387692156) GILBERTO (test code = GILBERTO) Association of [...] tests). Lab Interpretation Abnormal (test code = 71539-4) [facility]-30 10:49:51 Test Item Value Reference Range Interpretation Comments MAGNESIUM (test code = 7963068996) 1.7 mg/dL 1.7-2.4 Lab Interpretation (test code = Normal 98780-3) [facility] (NA, K, CL, CO2, GLUCOSE, BUN, CREATININE, CA)2022-11-20 01:11:20 Test Item Value Reference Range Interpretation Comments NA (test code = 126 mmol/L 135-145 L 0991785501) K (test code = 4.3 mmol/L 3.5-5.0 6549328103) CL (test code = 98 mmol/L 98-108 9294255261) CO2 TOTAL (test code = 19 mmol/L 23-31 L 8861566322) AGAP (test code = 9 2-16 6593250732) BUN (test code = 78 mg/dL 7-23 H 5837134048) GLUCOSE (test code = 101 mg/dL 70-110 2384630915) CREATININE (test code = 2.49 mg/dL 0.60-1.25 H 2122987693) CALCIUM (test code = 7.8 mg/dL 8.6-10.6 L 3745314100) eGFR (test code = 27.4 mL/min/1.73m2 5488869728) GILBERTO (test code = GILBERTO) Association of [...] tests). Lab Interpretation Abnormal (test code = 79252-3) [facility] (NA, K, CL, CO2, GLUCOSE, BUN, CREATININE, CA)2022-11-19 20:31:33 Test Item Value Reference Range Interpretation Comments NA (test code = 123 mmol/L 135-145 L 5457730983) K (test code = 4.4 mmol/L 3.5-5.0 9095261978) CL (test code = 97 mmol/L 98-108 L 2605702795) CO2 TOTAL (test code = 15 mmol/L 23-31 L 0666428338) AGAP (test code = 11 2-16 9818342012) BUN (test code = 81 mg/dL 7-23 H 0682040084) GLUCOSE (test code = 121 mg/dL 70-110 H 9835637137) CREATININE (test code = 2.61 mg/dL 0.60-1.25 H 2149791418) CALCIUM (test code = 7.7 mg/dL 8.6-10.6 L 7358558736) eGFR (test code = 25.9 mL/min/1.73m2 2248386224) GILBERTO (test code = GILBERTO) Association of [...] tests). Lab Interpretation Abnormal (test code = 27787-3) [facility] 17:12:43 ALCOHOL<10mg/dL11/19/2022 12:12 PM CDTUT LABORATORY SERVICESToxic Greater than or equal to 80 mg/dL. NOTE: Whole blood values are approximately 10% to 15% lower than serum and plasma.[facility] MET[facility]OLIC PAN[facility] (92734)2022-11-19 16:28:25 Test Item Value Reference Range Interpretation Comments NA (test code = 126 mmol/L 135-145 L 4133639342) K (test code = 5.6 mmol/L 3.5-5.0 H 6046288481) CL (test code = 92 mmol/L 98-108 L 5461525686) CO2 TOTAL (test code = 14 mmol/L 23-31 L 7691716375) AGAP (test code = 20 2-16 H 6258577883) BUN (test code = 89 mg/dL 7-23 H 0743915114) GLUCOSE (test code = 98 mg/dL 70-110 5777153832) CREATININE (test code = 3.16 mg/dL 0.60-1.25 H 0424140250) TOTAL BILI (test code = 0.4 mg/dL 0.1-1.3 7019847051) CALCIUM (test code = 9.6 mg/dL 8.6-10.6 0884299480) T PROTEIN (test code = 8.0 g/dL 6.3-8.2 9038702416) ALBUMIN (test code = 5.0 g/dL 3.5-5.0 3675351872) ALK PHOS (test code = 102 U/L 34-122 4220695686) ALTv (test code = 38 U/L 5-50 2-6) AST(SGOT) (test code = 32 U/L 13-40 8845548640) eGFR (test code = 20.8 mL/min/1.73m2 7642601201) GILBERTO (test code = GILBERTO) Association of [...] tests). Lab Interpretation Abnormal (test code = 27132-9) [facility]2023-[facility]-29 16:28:25 Test Item Value Reference Range Interpretation Comments MAGNESIUM (test code = 5484480338) 2.4 mg/dL 1.7-2.4 Lab Interpretation (test code = Normal 05529-9) [facility] WITH [id number] 16:12:44 Test Item Value Reference Range Interpretation Comments WBC (test code = 5.96 See_Comment [Automated 5390-2) message] The sy stem which generated this result transmitted reference range : 4.20 - 10.70 10*3/?L. The reference range was not used to interpret this result as normal/abnormal . RBC (test code = 4.73 See_Comment [Automated 839-8) message] The sy stem which generated this result transmitted reference range : 4.26 - 5.52 10*6/?L. The reference range was not used to interpret this result as normal/abnormal . HGB (test code = 13.9 g/dL 12.2-16.4 718-7) HCT (test code = 40.2 % 38.4-49.3 4544-3) MCV (test code = 85.0 fL 81.7-95.6 787-2) MCH (test code = 29.4 pg 26.1-32.7 785-6) MCHC (test code = 34.6 g/dL 31.2-35.0 786-4) RDW-SD (test code = 43.5 fL 38.5-51.6 69060-4) RDW-CV (test code = 14.0 % 12.1-15.4 788-0) PLT (test code = 446 See_Comment H [Automated 047-3) message] The sy stem which generated this result transmitted reference range : 150 - 328 10*3/ ?L. The reference r meredith was not used to interpret this result as normal/abnormal . MPV (test code = 9.0 fL 9.8-13.0 L 09495-7) NRBC/100 WBC (test 0.0 See_Comment [Automat ed code = 2761554911) message] The system which generated this result transmitted reference range : 0.0 - 10.0 /100 WBCs. The refer ence range was not u sed to interpret th is result as normal/abnormal . NRBC x10^3 (test code See_Comment [Auto mated = 2562054905) message] The s ystem which generated this result transmitted reference range : 10*3/?L. The reference range was not used to interpret this result as normal/abnormal . GRAN MAT (NEUT) % 73.7 % (test code = 770-8) IMM GRAN % (test code 0.30 % = 7397704066) LYMPH % (test code = 17.3 % 736-9) MONO % (test code = 7.9 % 5905-5) EOS % (test code = 0.5 % 713-8) BASO % (test code = 0.3 % 706-2) GRAN MAT x10^3(ANC) 4.39 10*3/uL 1.99-6.95 (test code = 5955810274) IMM GRAN x10^3 (test 0.00-0.06 code = 3653484365) LYMPH x10^3 (test code 1.03 10*3/uL 1.09-3.23 L = 731-0) MONO x10^3 (test code 0.47 10*3/uL 0.36-1.02 = 742-7) EOS x10^3 (test code = 0.03 10*3/uL 0.06-0.53 L 711-2) BASO x10^3 (test code 0.01-0.09 = 704-7) Lab Interpretation Abnormal (test code = 88214-5) [facility] METABOLIC PANEL (NA, K, CL, CO2, GLUCOSE, BUN, CREATININE, CA)2022-11-04 21:24:07 Test Item Value Reference Range Interpretation Comments NA (test code = 129 mmol/L 135-145 L 1338786164) K (test code = 3.8 mmol/L 3.5-5.0 Slight 4449122481) hemolysis CL (test code = 105 mmol/L 98-108 2822461180) CO2 TOTAL (test code 16 mmol/L 23-31 L = 0622107933) AGAP (test code = 8 2-16 8758641643) BUN (test code = 19 mg/dL 7-23 Slight 0827565223) hemolysis GLUCOSE (test code = 88 mg/dL 70-110 1127514767) CREATININE (test code 1.10 mg/dL 0.60-1.25 = 9811462245) CALCIUM (test code = 7.9 mg/dL 8.6-10.6 L 0619573437) eGFR (test code = 70.3 mL/min/1.73m2 6281674811) GILBERTO (test code = GILBERTO) Association of [...] tests). Lab Interpretation Abnormal (test code = 28576-6) [facility] 18:44:02 Test Item Value Reference Range Interpretation Comments NA (test code = 8998565449) 128 mmol/L 135-145 L Lab Interpretation (test code = Abnormal 66444-2) [facility] [id number] 14:16:32 Test Item Value Reference Range Interpretation Comments T. VOL U (test code = 2400 mL 6948487934) HR COLLECT (test code 24 Hours = 1689370215) NA URINE (test code = mmol/L 2284931262) NA U/24H (test code = Unable to calculate 7342529713) because, SODIUM URINE is less than the s ensitivity of the analyzer . [facility] [id number] 13:51:27 Test Item Value Reference Range Interpretation Comments T. VOL U (test code = 2400 mL 5050647665) HR COLLECT (test code = 24 Hours 7148728835) K URINE (test code = 3.2 mmol/L 2769533051) K U/24H (test code = 7.7 See_Comment L [Autom ated message] 6818806721) The system [employer] generated this result transmit dain reference range : 25.0 - 125.0 mmol/24H. The reference range was not used to interpret this result as normal/abnormal . Lab Interpretation Abnormal (test code = 71065-1) [facility] Metabolic Panel (NA, K, CL, CO2, GLUCOSE, BUN, CREATININE, CA)2022-11-03 11:23:03 Test Item Value Reference Range Interpretation Comments NA (test code = 127 mmol/L 135-145 L 2818414477) K (test code = 3.4 mmol/L 3.5-5.0 L 3131375195) CL (test code = 102 mmol/L 98-108 3975711802) CO2 TOTAL (test code = 17 mmol/L 23-31 L 7962903860) AGAP (test code = 8 2-16 0187417979) BUN (test code = 38 mg/dL 7-23 H 1121399914) GLUCOSE (test code = 84 mg/dL 70-110 6298161545) CREATININE (test code = 1.44 mg/dL 0.60-1.25 H 3736807331) CALCIUM (test code = 8.0 mg/dL 8.6-10.6 L 5608080782) eGFR (test code = 51.5 mL/min/1.73m2 4355712461) GILBERTO (test code = GILBERTO) Association of [...] tests). Lab Interpretation Abnormal (test code = 14637-8) [id number] 11:20:32 Test Item Value Reference Range Interpretation Comments MAGNESIUM (test code = 2829556248) 1.8 mg/dL 1.7-2.4 Lab Interpretation (test code = Normal 36818-5) [facility] with [id number] 11:11:14 Test Item Value Reference Range Interpretation Comments WBC (test code = 7.33 See_Comment [Automated 4190-2) message] The sy stem which generated this result transmitted reference range : 4.20 - 10.70 10*3/?L. The reference range was not used to interpret this result as normal/abnormal . RBC (test code = 3.69 See_Comment L [Automated 789-8) message] The sy [...] RDW-SD (test code = 45.9 fL 38.5-51.6 04099-2) RDW-CV (test code = 14.4 % 12.1-15.4 788-0) PLT (test code = 301 See_Comment [Automated 777-3) message] The sy stem which generated this result transmitted reference range : 150 - 328 10*3/ ?L. The reference r meredith was not used to interpret this result as normal/abnormal . MPV (test code = 9.2 fL 9.8-13.0 L 38902-9) NRBC/100 WBC (test 0.0 See_Comment [Automat ed code = [id number]) message] The system which generated this result transmitted reference range : 0.0 - 10.0 /100 WBCs. The refer ence range was not u sed to interpret th is result as normal/abnormal . NRBC x10^3 (test code See_Comment [Auto mated = [id number]) message] The s ystem which generated this result transmitted reference range : 10*3/?L. The reference range was not used to interpret this result as normal/abnormal . GRAN MAT (NEUT) % 65.3 % (test code = 770-8) IMM GRAN % (test code 0.30 % = 5535581326) LYMPH % (test code = 23.9 % 736-9) MONO % (test code = 8.9 % 5905-5) EOS % (test code = 1.2 % 713-8) BASO % (test code = 0.4 % 706-2) GRAN MAT x10^3(ANC) 4.79 10*3/uL 1.99-6.95 (test code = 1883272411) IMM GRAN x10^3 (test 0.00-0.06 code = 5710503195) LYMPH x10^3 (test code 1.75 10*3/uL 1.09-3.23 = 731-0) MONO x10^3 (test code 0.65 10*3/uL 0.36-1.02 = 742-7) EOS x10^3 (test code = 0.09 10*3/uL 0.06-0.53 711-2) BASO x10^3 (test code 0.03 10*3/uL 0.01-0.09 = 704-7) Lab Interpretation Abnormal (test code = 22274-8) [facility] Test Item Value Reference Range Interpretation Comments NA (test code = 0520494992) 125 mmol/L 135-145 L Lab Interpretation (test code = Abnormal 27454-9) [facility] Whole [id number] 23:05:03 Test Item Value Reference Range Interpretation Comments LACTIC ACID (test code = 1.46 mmol/L 0.50-2.20 0122727511) Lab Interpretation (test code = Normal 87813-3) [facility] 21:19:07 Test Item Value Reference Range Interpretation Comments MAGNESIUM (test code = 5532474734) 2.1 mg/dL 1.7-2.4 Lab Interpretation (test code = Normal 44722-1) [facility]OL[facility] ([id number])2022-11-02 21:19:06 Test Item Value Reference Range Interpretation Comments NA (test code = 123 mmol/L 135-145 L 0103084793) K (test code = 3.9 mmol/L 3.5-5.0 7896555474) CL (test code = 98 mmol/L 98-108 1075012255) CO2 TOTAL (test code = 18 mmol/L 23-31 L 4986280641) AGAP (test code = 7 2-16 6524958436) BUN (test code = 55 mg/dL 7-23 H 6002391595) GLUCOSE (test code = 87 mg/dL 70-110 0160517279) CREATININE (test code = 2.31 mg/dL 0.60-1.25 H 1443712873) TOTAL BILI (test code = 0.4 mg/dL 0.1-1.4 8632242326) CALCIUM (test code = 8.3 mg/dL 8.6-10.6 L 0355711729) T PROTEIN (test code = 6.2 g/dL 6.3-8.2 L 0504965128) ALBUMIN (test code = 3.7 g/dL 3.5-5.0 2424496189) ALK PHOS (test code = 85 U/L 34-122 2903333371) ALTv (test code = 21 U/L 5-50 2-6) AST(SGOT) (test code = 24 U/L 13-40 3968880376) eGFR (test code = 29.9 mL/min/1.73m2 1617561361) GILBERTO (test code = GILBERTO) Association of [...] tests). Lab Interpretation Abnormal (test code = 77183-0) [facility]YRO[facility] STIMULATING [id number] 19:17:37 Test Item Value Reference Range Interpretation Comments TSH (test code = 3.84 See_Comment [Automated message] 1228280251) The system [employer] generated this result transmitted ref erence range: 0.45 - 4 .70 mIU/L. The refe rence range was not u sed to interpret this result as normal/abnor mal. Lab Interpretation (test Normal code = 11725-2) [facility]FREE [id number] 19:03:33 Test Item Value Reference Range Interpretation Comments FREE T4 (test code = 1.43 See_Comment [Autom ated message] 4006961704) The system [employer] generated this result transmitted ref erence range: 0.78 - 2 .20 ng/dL:. The ref erence range was not u sed to interpret this result as normal/abnor mal. Lab Interpretation (test Normal code = 69618-8) [facility]HEPAT[facility] FUN[facility] PAN[facility] ([id number][facility] (ALB,T.PRO,BILI T,BU/BC,ALT,AST,ALK PHOS)2022-11-02 18:46:31 Test Item Value Reference Range Interpretation Comments TOTAL BILI (test code = 4196687752) 0.3 mg/dL 0.1-1.1 BILI UNCON (test code = 8366532424) 0.0 mg/dL 0.1-1.1 L BILI CONJ (test code = 0236166804) 0.0 mg/dL 0.0-0.3 T PROTEIN (test code = 8246964275) 6.7 g/dL 6.3-8.2 ALBUMIN (test code = 5045121620) 4.2 g/dL 3.5-5.0 ALK PHOS (test code = 9581396887) 101 U/L 34-122 ALTv (test code = 1742-6) 22 U/L 5-50 AST(SGOT) (test code = 4171436772) 25 U/L 13-40 Lab Interpretation (test code = Abnormal 96189-2) [facility] AllenPhosphorus [id number] 18:46:31 Test Item Value Reference Range Interpretation Comments PHOSPHORUS (test code = 2454192553) 4.7 mg/dL 2.5-5.0 Lab Interpretation (test code = Normal 80509-6) [facility] AllenLactic Acid Whole [id number] 17:37:44 Test Item Value Reference Range Interpretation Comments LACTIC ACID (test code = 2.67 mmol/L 0.50-2.20 H 2518704907) Lab Interpretation (test code = Abnormal 20643-3) [facility] AllenTROPONIN [id number] 13:55:32 Test Item Value Reference Range Interpretation Comments TROPONIN I (test code = <=0.034 4166757326) GILBERTO (test code = GILBERTO) Reference (Normal) Range (defined by the 99th percentile reference [...] biotin. Lab Interpretation Normal (test code = 34992-3) [facility]COMP[facility]OL[facility] PAN[facility] ([id number])2022-11-02 13:44:10 Test Item Value Reference Range Interpretation Comments NA (test code = 128 mmol/L 135-145 L 4541313377) K (test code = 5.1 mmol/L 3.5-5.0 H 5555017042) CL (test code = 94 mmol/L 98-108 L 7394939692) CO2 TOTAL (test code = 17 mmol/L 23-31 L 1397034358) AGAP (test code = 17 2-16 H 3830369331) BUN (test code = 61 mg/dL 7-23 H 1839316536) GLUCOSE (test code = 73 mg/dL 70-110 8000997914) CREATININE (test code = 3.83 mg/dL 0.60-1.25 H 5159828940) TOTAL BILI (test code = 0.6 mg/dL 0.1-1.6 3323954305) CALCIUM (test code = 10.3 mg/dL 8.6-10.6 9367750568) T PROTEIN (test code = 8.9 g/dL 6.3-8.2 H 8523915515) ALBUMIN (test code = 5.5 g/dL 3.5-5.0 H 3798001451) ALK PHOS (test code = 105 U/L 34-122 4092226240) ALTv (test code = 28 U/L 5-50 2-6) AST(SGOT) (test code = 28 U/L 13-40 8945755581) eGFR (test code = 16.7 mL/min/1.73m2 9205868092) GILBERTO (test code = GILBERTO) Association of [...] tests). Lab Interpretation Abnormal (test code = 58278-2) [facility] 13:44:10 Test Item Value Reference Range Interpretation Comments LIPASE (test code = 6031833272) 363 U/L 0-220 H Lab Interpretation (test code = Abnormal 29706-2) [facility]20[facility]-12 13:44:10 Test Item Value Reference Range Interpretation Comments MAGNESIUM (test code = 2870993614) 2.6 mg/dL 1.7-2.4 H Lab Interpretation (test code = Abnormal 77993-8) [facility]CBC WITH [id number] 13:32:52 Test Item Value Reference Range Interpretation Comments WBC (test code = 10.22 See_Comment [Automated 0946-2) message] The sy stem which generated this result transmitted reference range : 4.20 - 10.70 10*3/?L. The reference range was not used to interpret this result as normal/abnormal . RBC (test code = 5.11 See_Comment [Automated 291-8) message] The sy stem which generated this result transmitted reference range : 4.26 - 5.52 10*6/?L. The reference range was not used to interpret this result as normal/abnormal . HGB (test code = 15.2 g/dL 12.2-16.4 718-7) HCT (test code = 44.4 % 38.4-49.3 4544-3) MCV (test code = 86.9 fL 81.7-95.6 787-2) MCH (test code = 29.7 pg 26.1-32.7 785-6) MCHC (test code = 34.2 g/dL 31.2-35.0 786-4) RDW-SD (test code = 46.5 fL 38.5-51.6 11345-8) RDW-CV (test code = 14.5 % 12.1-15.4 788-0) PLT (test code = 405 See_Comment H [Automated 110-3) message] The sy stem which generated this result transmitted reference range : 150 - 328 10*3/ ?L. The reference r meredith was not used to interpret this result as normal/abnormal . MPV (test code = 9.0 fL 9.8-13.0 L 76841-5) NRBC/100 WBC (test 0.0 See_Comment [Automat ed code = 2209220401) message] The system which generated this result transmitted reference range : 0.0 - 10.0 /100 WBCs. The refer ence range was not u sed to interpret th is result as normal/abnormal . NRBC x10^3 (test code See_Comment [Auto mated = 6621824322) message] The s ystem which generated this result transmitted reference range : 10*3/?L. The reference range was not used to interpret this result as normal/abnormal . GRAN MAT (NEUT) % 72.2 % (test code = 770-8) IMM GRAN % (test code 0.70 % = 8680854973) LYMPH % (test code = 17.5 % 736-9) MONO % (test code = 8.4 % 5905-5) EOS % (test code = 0.8 % 713-8) BASO % (test code = 0.4 % 706-2) GRAN MAT x10^3(ANC) 7.38 10*3/uL 1.99-6.95 H (test code = 0000910500) IMM GRAN x10^3 (test 0.07 10*3/uL 0.00-0.06 H code = 3753975725) LYMPH x10^3 (test code 1.79 10*3/uL 1.09-3.23 = 731-0) MONO x10^3 (test code 0.86 10*3/uL 0.36-1.02 = 742-7) EOS x10^3 (test code = 0.08 10*3/uL 0.06-0.53 711-2) BASO x10^3 (test code 0.04 10*3/uL 0.01-0.09 = 704-7) Lab Interpretation Abnormal (test code = 01499-1) [facility] 02:09:43 Test Item Value Reference Range Interpretation Comments LIPASE (test code = 0553118474) 260 U/L 0-220 H Lab Interpretation (test code = Abnormal 04736-9) [facility]COM[facility]OL[facility] PAN[facility] (46617)2022-10-20 02:09:42 Test Item Value Reference Range Interpretation Comments NA (test code = 130 mmol/L 135-145 L 7210429910) K (test code = 4.6 mmol/L 3.5-5.0 Slight 9497492252) hemolysis CL (test code = 100 mmol/L 98-108 9933462595) CO2 TOTAL (test code 20 mmol/L 23-31 L = 5346726443) AGAP (test code = 10 2-16 8953601660) BUN (test code = 31 mg/dL 7-23 H Slight 9589528153) hemolysis GLUCOSE (test code = 90 mg/dL 70-110 6921838092) CREATININE (test code 1.67 mg/dL 0.60-1.25 H = 8749202046) TOTAL BILI (test code 0.6 mg/dL 0.1-1.1 = 4373715716) CALCIUM (test code = 9.0 mg/dL 8.6-10.6 9775838883) T PROTEIN (test code 7.1 g/dL 6.3-8.2 = 4910116830) ALBUMIN (test code = 4.5 g/dL 3.5-5.0 4316626338) ALK PHOS (test code = 73 U/L 34-122 Slight 3685099902) hemolysis ALTv (test code = 22 U/L 5-50 1742-6) AST(SGOT) (test code 29 U/L 13-40 Slight = 8811035013) hemolysis eGFR (test code = 43.4 mL/min/1.73m2 7755687424) GILBERTO (test code = GILBERTO) Association of [...] tests). Lab Interpretation Abnormal (test code = 18505-1) [facility]-27 02:09:42 Test Item Value Reference Range Interpretation Comments MAGNESIUM (test code = 0937345881) 1.9 mg/dL 1.7-2.4 Lab Interpretation (test code = Normal 01889-8) [facility] WITH [id number] 02:02:05 Test Item Value Reference Range Interpretation Comments WBC (test code = 9.57 See_Comment [Automated 6490-2) message] The sy stem which generated this result transmitted reference range : 4.20 - 10.70 10*3/?L. The reference range was not used to interpret this result as normal/abnormal . RBC (test code = 4.09 See_Comment L [Automated 139-8) message] The sy stem which generated this result transmitted reference range : 4.26 - 5.52 10*6/?L. The reference range was not used to interpret this result as normal/abnormal . HGB (test code = 11.9 g/dL 12.2-16.4 L 718-7) HCT (test code = 36.4 % 38.4-49.3 L 4544-3) MCV (test code = 89.0 fL 81.7-95.6 787-2) MCH (test code = 29.1 pg 26.1-32.7 785-6) MCHC (test code = 32.7 g/dL 31.2-35.0 786-4) RDW-SD (test code = 51.4 fL 38.5-51.6 17929-5) RDW-CV (test code = 15.7 % 12.1-15.4 H 788-0) PLT (test code = 330 See_Comment H [Automated 777-3) message] The sy stem which generated this result transmitted reference range : 150 - 328 10*3/ ?L. The reference r meredith was not used to interpret this result as normal/abnormal . MPV (test code = 8.9 fL 9.8-13.0 L 33215-8) NRBC/100 WBC (test 0.0 See_Comment [Automat ed code = 8489155029) message] The system which generated this result transmitted reference range : 0.0 - 10.0 /100 WBCs. The refer ence range was not u sed to interpret th is result as normal/abnormal . NRBC x10^3 (test code See_Comment [Auto mated = 8553890962) message] The s ystem which generated this result transmitted reference range : 10*3/?L. The reference range was not used to interpret this result as normal/abnormal . GRAN MAT (NEUT) % 64.1 % (test code = 770-8) IMM GRAN % (test code 0.40 % = 5328590437) LYMPH % (test code = 22.7 % 736-9) MONO % (test code = 11.0 % 5905-5) EOS % (test code = 1.3 % 713-8) BASO % (test code = 0.5 % 706-2) GRAN MAT x10^3(ANC) 6.14 10*3/uL 1.99-6.95 (test code = 7835532613) IMM GRAN x10^3 (test 0.04 10*3/uL 0.00-0.06 code = 8088732694) LYMPH x10^3 (test code 2.17 10*3/uL 1.09-3.23 = 731-0) MONO x10^3 (test code 1.05 10*3/uL 0.36-1.02 H = 742-7) EOS x10^3 (test code = 0.12 10*3/uL 0.06-0.53 711-2) BASO x10^3 (test code 0.05 10*3/uL 0.01-0.09 = 704-7) Lab Interpretation Abnormal (test code = 51762-6) [facility] METABOLIC PANEL (NA, K, CL, CO2, GLUCOSE, BUN, CREATININE, CA)2022-05-21 12:12:49 Test Item Value Reference Range Interpretation Comments NA (test code = 132 mmol/L 135-145 L 1668213352) K (test code = 3.4 mmol/L 3.5-5 L 5683909477) CL (test code = 106 mmol/L 98-108 0159001221) CO2 TOTAL (test code = 22 mmol/L 23-31 L 1357525519) AGAP (test code = 2-16 1242704447) BUN (test code = 22 mg/dL 7-23 2361931106) GLUCOSE (test code = 87 mg/dL 70-110 4857645927) CREATININE (test code = 0.98 mg/dL 0.6-1.25 9647196494) CALCIUM (test code = 7.8 mg/dL 8.6-10.6 L 4426382196) eGFR (test code = mL/min/1.73m2 2191686218) GILBERTO (test code = GILBERTO) Association of [...] tests). Lab Interpretation Abnormal (test code = 22712-0) [facility]-28 12:12:49 Test Item Value Reference Range Interpretation Comments MAGNESIUM (test code = 7843500012) 1.7 mg/dL 1.7-2.4 Lab Interpretation (test code = Normal 42091-4) [facility]2022-09-28 12:12:29 Test Item Value Reference Range Interpretation Comments PHOSPHORUS (test code = 6882477117) 2.3 mg/dL 2.5-5 L Lab Interpretation (test code = Abnormal 88208-9) [facility] WITH [id number] 11:40:10 Test Item Value Reference Range Interpretation [...] RDW-SD (test code = 46.9 fL 38.5-51.6 34656-4) RDW-CV (test code = 15.4 % 12.1-15.4 788-0) PLT (test code = See_Comment [Automated 777-3) message] The sy stem which generated this result transmitted reference range : 150 - 328 10*3/ ?L. The reference r meredith was not used to interpret this result as normal/abnormal . MPV (test code = 9.3 fL 9.8-13 L 10732-6) NRBC/100 WBC (test See_Comment [Automat ed code = 2119872279) message] The system which generated this result transmitted reference range : 0.0 - 10.0 /100 WBCs. The refer ence range was not u sed to interpret th is result as normal/abnormal . NRBC x10^3 (test code See_Comment [Auto mated = 4542110857) message] The s ystem which generated this result transmitted reference range : 10*3/?L. The reference range was not used to interpret this result as normal/abnormal . GRAN MAT (NEUT) % 69.3 % (test code = 770-8) IMM GRAN % (test code 0.20 % = 4791550693) LYMPH % (test code = 18.2 % 736-9) MONO % (test code = 9.9 % 5905-5) EOS % (test code = 2.0 % 713-8) BASO % (test code = 0.4 % 706-2) GRAN MAT x10^3(ANC) 3.51 10*3/uL 1.99-6.95 (test code = 6689598737) IMM GRAN x10^3 (test 0-0.06 code = 3783163822) LYMPH x10^3 (test code 0.92 10*3/uL 1.09-3.23 L = 731-0) MONO x10^3 (test code 0.50 10*3/uL 0.36-1.02 = 742-7) EOS x10^3 (test code = 0.10 10*3/uL 0.06-0.53 711-2) BASO x10^3 (test code 0.01-0.09 = 704-7) Lab Interpretation Abnormal (test code = 64469-3) [facility]. METABOLIC PANEL (36612)2022-05-20 01:54:47 Test Item Value Reference Range Interpretation Comments NA (test code = 131 mmol/L 135-145 L 7446082692) K (test code = 4.6 mmol/L 3.5-5 7129274743) CL (test code = 102 mmol/L 98-108 1587066488) CO2 TOTAL (test code = 16 mmol/L 23-31 L 0035706487) AGAP (test code = 2-16 5148472025) BUN (test code = 46 mg/dL 7-23 H 2621922992) GLUCOSE (test code = 98 mg/dL 70-110 6557343643) CREATININE (test code = 1.88 mg/dL 0.6-1.25 H 6488093873) TOTAL BILI (test code = 0.7 mg/dL 0.1-1.4 3805727098) CALCIUM (test code = 9.1 mg/dL 8.6-10.6 1372863819) T PROTEIN (test code = 7.3 g/dL 6.3-8.2 3087552366) ALBUMIN (test code = 4.8 g/dL 3.5-5 0557273265) ALK PHOS (test code = 72 U/L 34-122 3570701095) ALTv (test code = 26 U/L 5-50 1742-6) AST(SGOT) (test code = 27 U/L 13-40 3514277008) eGFR (test code = mL/min/1.73m2 8598183013) GILBERTO (test code = GILBERTO) Association of [...] tests). Lab Interpretation Abnormal (test code = 58448-8) [facility] 01:54:47 Test Item Value Reference Range Interpretation Comments LIPASE (test code = 4926318189) 263 U/L 0-220 H Lab Interpretation (test code = Abnormal 78612-8) [facility] WITH [id number] 01:43:49 Test Item Value Reference Range Interpretation [...] RDW-SD (test code = 46.0 fL 38.5-51.6 77591-4) RDW-CV (test code = 15.4 % 12.1-15.4 788-0) PLT (test code = See_Comment H [Automated 777-3) message] The sy stem which generated this result transmitted reference range : 150 - 328 10*3/ ?L. The reference r meredith was not used to interpret this result as normal/abnormal . MPV (test code = 9.7 fL 9.8-13 L 83733-1) NRBC/100 WBC (test See_Comment [Automat ed code = 1028147932) message] The system which generated this result transmitted reference range : 0.0 - 10.0 /100 WBCs. The refer ence range was not u sed to interpret th is result as normal/abnormal . NRBC x10^3 (test code See_Comment [Auto mated = 6824337017) message] The s ystem which generated this result transmitted reference range : 10*3/?L. The reference range was not used to interpret this result as normal/abnormal . GRAN MAT (NEUT) % 64.5 % (test code = 770-8) IMM GRAN % (test code 0.40 % = 4079562450) LYMPH % (test code = 24.7 % 736-9) MONO % (test code = 9.2 % 5905-5) EOS % (test code = 0.7 % 713-8) BASO % (test code = 0.5 % 706-2) GRAN MAT x10^3(ANC) 5.20 10*3/uL 1.99-6.95 (test code = 5056478132) IMM GRAN x10^3 (test 0.03 10*3/uL 0-0.06 code = 5046412588) LYMPH x10^3 (test code 1.99 10*3/uL 1.09-3.23 = 731-0) MONO x10^3 (test code 0.74 10*3/uL 0.36-1.02 = 742-7) EOS x10^3 (test code = 0.06 10*3/uL 0.06-0.53 711-2) BASO x10^3 (test code 0.04 10*3/uL 0.01-0.09 = 704-7) Lab Interpretation Abnormal (test code = 22748-4) [facility] WITH [id number] 05:06:34 Test Item Value Reference Range Interpretation [...] (test code = 56.7 fL 38.5-51.6 H 26226-4) RDW-CV (test code = 17.4 % 12.1-15.4 H 788-0) PLT (test code = See_Comment [Automated 777-3) message] The sy stem which generated this result transmitted reference range : 150 - 328 10*3/ ?L. The reference r meredith was not used to interpret this result as normal/abnormal . MPV (test code = 9.5 fL 9.8-13 L 57726-2) NRBC/100 WBC (test See_Comment [Automat ed code = 0023457648) message] The system which generated this result transmitted reference range : 0.0 - 10.0 /100 WBCs. The refer ence range was not u sed to interpret th is result as normal/abnormal . NRBC x10^3 (test code See_Comment [Auto mated = 3781671978) message] The s ystem which generated this result transmitted reference range : 10*3/?L. The reference range was not used to interpret this result as normal/abnormal . SEG % (test code = 56 % 33-76 98879-5) LYMPH % (test code = 28 % 14-54 26215-6) MONO % (test code = 12 % 0-4 H 91949-5) EOS % (test code = 4 % 0-3 H 25350-7) ANC (test code = 4.72 10*3/uL 1.99-6.95 753-4) PLT ESTIMATE (test Normal Normal code = 9317-9) Lab Interpretation Abnormal (test code = 64312-1) [facility]14721[facility] 04:19:15 Test Item Value Reference Range Interpretation Comments NA (test code = 137 mmol/L 135-145 7051284852) K (test code = 4.6 mmol/L 3.5-5 2774095166) CL (test code = 108 mmol/L 98-108 1343806633) CO2 TOTAL (test code = 22 mmol/L 23-31 L 3401380309) AGAP (test code = 2-16 3535227791) BUN (test code = 16 mg/dL 7-23 8854893205) GLUCOSE (test code = 96 mg/dL 70-110 9867844240) CREATININE (test code = 1.35 mg/dL 0.6-1.25 H 4645461863) TOTAL BILI (test code = 0.4 mg/dL 0.1-1.1 9494099593) CALCIUM (test code = 9.1 mg/dL 8.6-10.6 9630547427) T PROTEIN (test code = 5.5 g/dL 6.3-8.2 L 0151459252) ALBUMIN (test code = 3.9 g/dL 3.5-5 8419253793) ALK PHOS (test code = 58 U/L 34-122 3820667163) ALTv (test code = 41 U/L 5-50 1742-6) AST(SGOT) (test code = 42 U/L 13-40 H 2315432779) eGFR (test code = mL/min/1.73m2 0836854008) GILBERTO (test code = GILBERTO) Association of [...] tests). Lab Interpretation Abnormal (test code = 58363-8) [facility] Test Item Value Reference Range Interpretation Comments LIPASE (test code = 6951947904) 90 U/L 0-220 Lab Interpretation (test code = Normal 75824-8) [facility]-16 12:00:33 Test Item Value Reference Range Interpretation Comments MAGNESIUM (test code = 8015488921) 1.5 mg/dL 1.7-2.4 L Lab Interpretation (test code = Abnormal 03097-5) [facility] (NA, K, CL, CO2, GLUCOSE, BUN, CREATININE, CA)2022-04-08 11:12:32 Test Item Value Reference Range Interpretation Comments NA (test code = 136 mmol/L 135-145 0092801048) K (test code = 4.1 mmol/L 3.5-5 5865382875) CL (test code = 108 mmol/L 98-108 5881532941) CO2 TOTAL (test code = 25 mmol/L 23-31 6213608745) AGAP (test code = 2-16 6421611226) BUN (test code = 10 mg/dL 7-23 2087380090) GLUCOSE (test code = 82 mg/dL 70-110 0766725873) CREATININE (test code = 1.10 mg/dL 0.6-1.25 4191218837) CALCIUM (test code = 8.3 mg/dL 8.6-10.6 L 9826153369) eGFR (test code = mL/min/1.73m2 2550602503) GILBERTO (test code = GILBERTO) Association of [...] tests). Lab Interpretation Abnormal (test code = 15136-3) [facility] 11:12:32 Test Item Value Reference Range Interpretation Comments PHOSPHORUS (test code = 3853694427) 2.5 mg/dL 2.5-5 Lab Interpretation (test code = Normal 64884-5) [facility] WITH [id number] 10:47:27 Test Item Value Reference Range Interpretation [...] (test code = 54.4 fL 38.5-51.6 H 71118-1) RDW-CV (test code = 16.9 % 12.1-15.4 H 788-0) PLT (test code = See_Comment [Automated 777-3) message] The sy stem which generated this result transmitted reference range : 150 - 328 10*3/ ?L. The reference r meredith was not used to interpret this result as normal/abnormal . MPV (test code = 9.7 fL 9.8-13 L 93482-9) NRBC/100 WBC (test See_Comment [Automat ed code = 4783631058) message] The system which generated this result transmitted reference range : 0.0 - 10.0 /100 WBCs. The refer ence range was not u sed to interpret th is result as normal/abnormal . NRBC x10^3 (test code See_Comment [Auto mated = [id number]) message] The s [employer] which generated this result transmitted reference range : 10*3/?L. The reference range was not used to interpret this result as normal/abnormal . GRAN MAT (NEUT) % 54.7 % (test code = 770-8) IMM GRAN % (test code 0.40 % = 6033189448) LYMPH % (test code = 33.8 % 736-9) MONO % (test code = 8.7 % 5905-5) EOS % (test code = 2.0 % 713-8) BASO % (test code = 0.4 % 706-2) GRAN MAT x10^3(ANC) 2.95 10*3/uL 1.99-6.95 (test code = 6262052672) IMM GRAN x10^3 (test 0-0.06 code = 3393408832) LYMPH x10^3 (test code 1.82 10*3/uL 1.09-3.23 = 731-0) MONO x10^3 (test code 0.47 10*3/uL 0.36-1.02 = 742-7) EOS x10^3 (test code = 0.11 10*3/uL 0.06-0.53 711-2) BASO x10^3 (test code 0.01-0.09 = 704-7) Lab Interpretation Abnormal (test code = 42374-7) [facility] METABOLIC PANEL (NA, K, CL, CO2, GLUCOSE, BUN, CREATININE, CA)2022-04-06 09:47:17 Test Item Value Reference Range Interpretation Comments NA (test code = 134 mmol/L 135-145 L 7758761324) K (test code = 4.2 mmol/L 3.5-5 Slight 7492502087) hemolysis CL (test code = 114 mmol/L 98-108 H 2276866103) CO2 TOTAL (test code 16 mmol/L 23-31 L = 2145517626) AGAP (test code = 2-16 0975640289) BUN (test code = 16 mg/dL 7-23 Slight 6692561363) hemolysis GLUCOSE (test code = 79 mg/dL 70-110 9875375436) CREATININE (test code 1.00 mg/dL 0.6-1.25 = 2148835216) CALCIUM (test code = 7.5 mg/dL 8.6-10.6 L 3029251400) eGFR (test code = mL/min/1.73m2 9031426181) GILBERTO (test code = GILBERTO) Association of [...] tests). Lab Interpretation Abnormal (test code = 77233-0) [facility] Test Item Value Reference Range Interpretation Comments MAGNESIUM (test code = 2745709764) 1.2 mg/dL 1.7-2.4 L Lab Interpretation (test code = Abnormal 32294-4) [facility] [id number] 09:16:49 Test Item Value Reference Range Interpretation Comments LACTIC ACID (test code = 1.35 mmol/L 0.5-2.2 5844193526) Lab Interpretation (test code = Normal 14102-5) [facility] WITH [id number] 09:13:32 Test Item Value Reference Range Interpretation [...] (test code = 52.4 fL 38.5-51.6 H 64442-5) RDW-CV (test code = 16.6 % 12.1-15.4 H 788-0) PLT (test code = See_Comment [Automated 777-3) message] The sy stem which generated this result transmitted reference range : 150 - 328 10*3/ ?L. The reference r meredith was not used to interpret this result as normal/abnormal . MPV (test code = 10.0 fL 9.8-13 03368-6) NRBC/100 WBC (test See_Comment [Automat ed code = 5709159277) message] The system which generated this result transmitted reference range : 0.0 - 10.0 /100 WBCs. The refer ence range was not u sed to interpret th is result as normal/abnormal . NRBC x10^3 (test code See_Comment [Auto mated = 9160924847) message] The s ystem which generated this result transmitted reference range : 10*3/?L. The reference range was not used to interpret this result as normal/abnormal . GRAN MAT (NEUT) % 48.6 % (test code = 770-8) IMM GRAN % (test code 0.20 % = 7327587980) LYMPH % (test code = 39.4 % 736-9) MONO % (test code = 9.3 % 5905-5) EOS % (test code = 1.9 % 713-8) BASO % (test code = 0.6 % 706-2) GRAN MAT x10^3(ANC) 2.36 10*3/uL 1.99-6.95 (test code = 2698203538) IMM GRAN x10^3 (test 0-0.06 code = 7197131081) LYMPH x10^3 (test code 1.91 10*3/uL 1.09-3.23 = 731-0) MONO x10^3 (test code 0.45 10*3/uL 0.36-1.02 = 742-7) EOS x10^3 (test code = 0.09 10*3/uL 0.06-0.53 711-2) BASO x10^3 (test code 0.03 10*3/uL 0.01-0.09 = 704-7) Lab Interpretation Abnormal (test code = 90241-5) [facility] Test Item Value Reference Range Interpretation Comments MAGNESIUM (test code = 0365112051) 1.8 mg/dL 1.7-2.4 Lab Interpretation (test code = Normal 73360-6) [facility] CARE VENOUS BLOOD [id number] 18:40:18 Test Item Value Reference Range Interpretation Comments PH (test code = 7.32-7.42 L 4293171960) PCO2 PANKAJ (test code = See_Comment [Auto mated message] 2213275277) The system [employer] generated this result transmitted ref erence range: 41 - 51 mmHg. The reference r meredith was not used to interpret this result as normal/abnor mal. PO2 PANKAJ (test code = See_Comment L [Autom ated message] 1358605038) The system [employer] generated this result transmitted ref erence range: 25 - 40 mmHg. The reference r meredith was not used to interpret this result as normal/abnor mal. HCO3 PANKAJ (test code = See_Comment L [Auto mated message] 4937065739) The system [employer] generated this result transmitted ref erence range: 24 - 28 mEq/L. The reference r meredith was not used to interpret this result as normal/abnor mal. AC VBE(BEAKER) (test mEq/L code = 8761644970) Lab Interpretation (test Abnormal code = 54590-2) [facility] METABOLIC PANEL (NA, K, CL, CO2, GLUCOSE, BUN, CREATININE, CA)2022-04-03 18:33:26 Test Item Value Reference Range Interpretation Comments NA (test code = 129 mmol/L 135-145 L 3787545367) K (test code = 3.3 mmol/L 3.5-5 L 3451155416) CL (test code = 100 mmol/L 98-108 0172685762) CO2 TOTAL (test code = 19 mmol/L 23-31 L 9526226179) AGAP (test code = 2-16 7455342902) BUN (test code = 49 mg/dL 7-23 H 1552957204) GLUCOSE (test code = 75 mg/dL 70-110 5861676372) CREATININE (test code = 2.55 mg/dL 0.6-1.25 H 8271403095) CALCIUM (test code = 8.6 mg/dL 8.6-10.6 7522564477) eGFR (test code = mL/min/1.73m2 4517640713) GILBERTO (test code = GILBERTO) Association of [...] tests). Lab Interpretation Abnormal (test code = 03299-8) [facility], SERUM OR [id number] 15:45:31 Test Item Value Reference Range Interpretation Comments OSMOLALITY (test code = See_Comment [Au tomated message] 2692-2) The system [employer] generated this result transmitted ref erence range: 278 - 30 5 mOsm/kg. The re ference range was not u sed to interpret this result as normal/abnor mal. Lab Interpretation (test Normal code = 18815-4) [facility] with [id number] 11:27:34 Test Item Value Reference Range Interpretation [...] RDW-SD (test code = 48.7 fL 38.5-51.6 71822-4) RDW-CV (test code = 15.9 % 12.1-15.4 H 788-0) PLT (test code = See_Comment [Automated 777-3) message] The sy stem which generated this result transmitted reference range : 150 - 328 10*3/ ?L. The reference r meredith was not used to interpret this result as normal/abnormal . MPV (test code = 9.4 fL 9.8-13 L 83111-6) NRBC/100 WBC (test See_Comment [Automat ed code = 0239688226) message] The system which generated this result transmitted reference range : 0.0 - 10.0 /100 WBCs. The refer ence range was not u sed to interpret th is result as normal/abnormal . NRBC x10^3 (test code See_Comment [Auto mated = 5270423306) message] The s ystem which generated this result transmitted reference range : 10*3/?L. The reference range was not used to interpret this result as normal/abnormal . GRAN MAT (NEUT) % 56.0 % (test code = 770-8) IMM GRAN % (test code 0.50 % = 6782714486) LYMPH % (test code = 33.2 % 736-9) MONO % (test code = 8.6 % 5905-5) EOS % (test code = 1.1 % 713-8) BASO % (test code = 0.6 % 706-2) GRAN MAT x10^3(ANC) 3.64 10*3/uL 1.99-6.95 (test code = 1928224282) IMM GRAN x10^3 (test 0.03 10*3/uL 0-0.06 code = 0869653779) LYMPH x10^3 (test code 2.16 10*3/uL 1.09-3.23 = 731-0) MONO x10^3 (test code 0.56 10*3/uL 0.36-1.02 = 742-7) EOS x10^3 (test code = 0.07 10*3/uL 0.06-0.53 711-2) BASO x10^3 (test code 0.04 10*3/uL 0.01-0.09 = 704-7) Lab Interpretation Abnormal (test code = 62115-6) [facility] Metabolic Panel (NA, K, CL, CO2, GLUCOSE, BUN, CREATININE, CA)2022-04-03 10:08:59 Test Item Value Reference Range Interpretation Comments NA (test code = 125 mmol/L 135-145 L 4633817698) K (test code = 3.7 mmol/L 3.5-5 6002782522) CL (test code = 96 mmol/L 98-108 L 6150820420) CO2 TOTAL (test code = 15 mmol/L 23-31 L 1624185733) AGAP (test code = 2-16 9317319335) BUN (test code = 50 mg/dL 7-23 H 4156129862) GLUCOSE (test code = 86 mg/dL 70-110 2632085845) CREATININE (test code = 3.86 mg/dL 0.6-1.25 H 5712318316) CALCIUM (test code = 8.6 mg/dL 8.6-10.6 1273839326) eGFR (test code = mL/min/1.73m2 5301516521) GILBERTO (test code = GILBERTO) Association of [...] tests). Lab Interpretation Abnormal (test code = 10441-4) [facility] [id number] 04:09:02 Test Item Value Reference Range Interpretation Comments LACTIC ACID (test code = 1.54 mmol/L 0.5-2.2 7700155017) Lab Interpretation (test code = Normal 17450-4) [facility] [id number] 00:25:08 Test Item Value Reference Range Interpretation Comments LACTIC ACID (test code = 2.50 mmol/L 0.5-2.2 H 3634161072) Lab Interpretation (test code = Abnormal 90187-2) [facility] WITH [id number] 20:19:45 Test Item Value Reference Range Interpretation Comments WBC (test code = See_Comment H [Automated 6690-2) message] The system which generated this result transmit dain reference range : 4.20 - 10.70 10*3/?L. The reference range was not used to interpret this result as normal/abnormal . RBC (test code = See_Comment [Automated 509-8) message] The system which generated this result [...] RDW-SD (test code = 49.8 fL 38.5-51.6 20342-5) RDW-CV (test code = 16.4 % 12.1-15.4 H 788-0) PLT (test code = See_Comment H [Automated 777-3) message] The system which generated this result transmit dain reference range : 150 - 328 10*3/ ?L. The reference range was not u sed to interpret th is result as normal/abnormal . MPV (test code = 10.7 fL 9.8-13 68092-1) NRBC/100 WBC (test See_Comment [Automat ed code = 4070135304) message] The system which generated this result transmit dain reference range : 0.0 - 10.0 /100 WBCs. The reference range was not used to interpret this result as normal/abnormal . NRBC x10^3 (test code See_Comment [Auto mated = 1840448578) message] The system which generated this result transmit dain reference range : 10*3/?L. The reference range was not used to interpret this result as normal/abnormal . GRAN MAT (NEUT) % 73.4 % (test code = 770-8) IMM GRAN % (test code 0.60 % = 1770704360) LYMPH % (test code = 17.2 % 736-9) MONO % (test code = 8.2 % 5905-5) EOS % (test code = 0.2 % 713-8) BASO % (test code = 0.4 % 706-2) GRAN MAT x10^3(ANC) 10.17 10*3/uL 1.99-6.95 H (test code = 3675515859) IMM GRAN x10^3 (test 0.09 10*3/uL 0-0.06 H code = 5235613434) LYMPH x10^3 (test code 2.38 10*3/uL 1.09-3.23 = 731-0) MONO x10^3 (test code 1.13 10*3/uL 0.36-1.02 H = 742-7) EOS x10^3 (test code = 0.03 10*3/uL 0.06-0.53 L 711-2) BASO x10^3 (test code 0.05 10*3/uL 0.01-0.09 = 704-7) Lab Interpretation Abnormal (test code = 32668-7) [facility] W/AUTO [id number] 00:06:00 Test Item Value Reference Range Interpretation [...] = MX#) 0.5 k/mm3 0.1-0.8 N TROPONIN-I [id number] 15:07:00 Test Item Value Reference Range Interpretation Comments TROPONIN-I RAPID 0.00 ng/mL 0.00-0.08 N Performed b y certified (test code = 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 [facility]) Ctr Negative: <= 0.08 Positive: >= 0. [...] onin levels characteristic of MD. BASIC METABOLIC [id number] 14:56:00 Test Item Value Reference Range Interpretation [...] MG/DL 70-110 N - XR CHEST 1 [id number] [facility] 1970 Sex: M FAX: Sabi Urias MD [phone] [place]: [place] St: REG Name: HOANG MCNEILL FSED : 1970 Age/S: 52/M [address] [facility] Unit #: [id number] Loc: [place] [address] Phys: Sabi Urias MD Acct: [id number] DisDate: Status: REG ER PHONE #: Exam Date: 03/29/2022 1501 FAX #: Reason: Weakness EXAMS: CPT CODE: [id number] XR CHEST 1 V 15494 PROCEDURE INFORMATION: Exam: XR Chest Exam date [...] By: GarettTTV Orig Print D/T: S: 03/29/2022 (1953) PAGE 1 Signed ReportHEPATIC FUNCTION [id number] 06:45:03 Test Item Value Reference Range Interpretation [...] (test code = 13 U/L 6-55 347) Educational Assistant Teacher ID - ERWIN WBASIC METABOLIC [id number] 06:45:02 Test Item Value Reference Range Interpretation [...] S NOT APPLICABLE FOR DIALYSIS PATIEN TS. Educational Assistant Teacher ID - ERWIN WCBC W/PLT COUNT & AUTO [id number] 06:26:54 Test Item Value Reference Range Interpretation [...] (BEAKER) (test code = 2801) U/S, RENAL, [id number] 19:23:00Reason for exam:->acute kidney injury [facility] : 1970 Sex: MFINAL REPORT TECHNIQUE: Grayscale [...] SARS-Co V-2 (test code = target nucleic 14132-0) acids are not detected in thi s [...] om SARS-CoV-2 in a nasopharyngeal swab specimen [facility] from individual s suspected of COVID-19 [...] revoked sooner. Fact Sheet for Healthcare Providers: https://www.[employer].com/Documents/Xp ert%20Xpress%20SAR S%20CoV-2/Fact%20S heets/302-3802%20S ARS-COV-2%20HEALTH CARE%20PROVIDERS%2 0FACT%20SHEET.pdf Fact Sheet for Healthcare Patients: https://www.Jack Erwin/Documents/Xp ert%20Xpress%20SAR S%20CoV-2/Fact%20S heets/302-3801%20S ARS-COV-2%20PATIEN T%20FACT%20SHEET.p df Lab Interpretation Normal (test code = 80567-0) [facility]22-[facility]-06 19:17:07 Test Item Value Reference Interpretation Comments Range SARS-COV2/RT-PCR Negative Negative The SARS-Co V-2 (test code = target nucleic 16716-0) acids are not detected in thi s [...] revoked sooner. Fact Sheet for Healthcare Providers: https://www.Jack [employer]/Documents/Xp ert%20Xpress%20SAR S%20CoV-2/Fact%20S heets/302-3802%20S ARS-COV-2%20HEALTH CARE%20PROVIDERS%2 0FACT%20SHEET.pdf Fact Sheet for Healthcare Patients: https://www.Jack [employer]/Documents/Xp ert%20Xpress%20SAR S%20CoV-2/Fact%20S heets/302-3801%20S ARS-COV-2%20PATIEN T%20FACT%20SHEET.p df Lab Interpretation Normal (test code = 02865-7) [facility] 19:17:07 Test Item Value Reference Interpretation Comments Range SARS-COV2/RT-PCR Negative Negative The SARS-Co V-2 (test code = target nucleic 11236-8) acids are not detected in thi s [...] revoked sooner. Fact Sheet for Healthcare Providers: https://www.Jack [employer]win/Documents/Xp ert%20Xpress%20SAR S%20CoV-2/Fact%20S heets/3023802%20S ARS-COV-2%20HEALTH CARE%20PROVIDERS%2 0FACT%20SHEET.pdf Fact Sheet for Healthcare Patients: https://www.Jack [employer]/Documents/Xp ert%20Xpress%20SAR S%20CoV-2/Fact%20S heets/302-3801%20S ARS-COV-2%20PATIEN T%20FACT%20SHEET.p df Lab Interpretation Normal (test code = 40946-3) [facility]2022-03-06 19:17:07 Test Item Value Reference Interpretation Comments Range SARS-COV2/RT-PCR Negative Negative The SARS-Co V-2 (test code = target nucleic 35040-9) acids are not detected in thi s [...] revoked sooner. Fact Sheet for Healthcare Providers: https://www.Jack [employer]/Documents/Xp ert%20Xpress%20SAR S%20CoV-2/Fact%20S heets/302-3802%20S ARS-COV-2%20HEALTH CARE%20PROVIDERS%2 0FACT%20SHEET.pdf Fact Sheet for Healthcare Patients: https://www.Jack [employer]/Documents/Xp ert%20Xpress%20SAR S%20CoV-2/Fact%20S heets/302-3801%20S ARS-COV-2%20PATIEN T%20FACT%20SHEET.p df Lab Interpretation Normal (test code = 51671-8) [facility]2022-03-06 19:17:07 Test Item Value Reference Interpretation Comments Range SARS-COV2/RT-PCR Negative Negative The SARS-Co V-2 (test code = target nucleic 12640-1) acids are not detected in thi s [...] revoked sooner. Fact Sheet for Healthcare Providers: https://www.Jack [employer]/Documents/Xp ert%20Xpress%20SAR S%20CoV-2/Fact%20S heets/302-3802%20S ARS-COV-2%20HEALTH CARE%20PROVIDERS%2 0FACT%20SHEET.pdf Fact Sheet for Healthcare Patients: https://www.Jack [employer]/Documents/Xp ert%20Xpress%20SAR S%20CoV-2/Fact%20S heets/302-3801%20S ARS-COV-2%20PATIEN T%20FACT%20SHEET.p df Lab Interpretation Normal (test code = 61341-3) [facility]2022-03-06 19:17:07 Test Item Value Reference Interpretation Comments Range SARS-COV2/RT-PCR Negative Negative The SARS-Co V-2 (test code = target nucleic 85930-4) acids are not detected in thi s [...] revoked sooner. Fact Sheet for Healthcare Providers: https://www.Jack [employer]win/Documents/Xp ert%20Xpress%20SAR S%20CoV-2/Fact%20S heets/3023802%20S ARS-COV-2%20HEALTH CARE%20PROVIDERS%2 0FACT%20SHEET.pdf Fact Sheet for Healthcare Patients: https://www.Jack [employer]/Documents/Xp ert%20Xpress%20SAR S%20CoV-2/Fact%20S heets/3023801%20S ARS-COV-2%20PATIEN T%20FACT%20SHEET.p df Lab Interpretation Normal (test code = 93458-3) [facility]2022-03-06 19:17:07 Test Item Value Reference Interpretation Comments Range SARS-COV2/RT-PCR Negative Negative The SARS-Co V-2 (test code = target nucleic 05497-7) acids are not detected in thi s [...] revoked sooner. Fact Sheet for Healthcare Providers: https://www.Jack [employer]win/Documents/Xp ert%20Xpress%20SAR S%20CoV-2/Fact%20S heets/302-3802%20S ARS-COV-2%20HEALTH CARE%20PROVIDERS%2 0FACT%20SHEET.pdf Fact Sheet for Healthcare Patients: https://www.Jack Erwin/Documents/Xp ert%20Xpress%20SAR S%20CoV-2/Fact%20S heets/302-3801%20S ARS-COV-2%20PATIEN T%20FACT%20SHEET.p df Lab Interpretation Normal (test code = 49689-7) [facility]2022-03-06 19:17:07 Test Item Value Reference Interpretation Comments Range SARS-COV2/RT-PCR Negative Negative The SARS-Co V-2 (test code = target nucleic 41963-0) acids are not detected in thi s [...] revoked sooner. Fact Sheet for Healthcare Providers: https://www.Jack Erwin/Documents/Xp ert%20Xpress%20SAR S%20CoV-2/Fact%20S heets/302-3802%20S ARS-COV-2%20HEALTH CARE%20PROVIDERS%2 0FACT%20SHEET.pdf Fact Sheet for Healthcare Patients: https://www.Jack Erwin/Documents/Xp ert%20Xpress%20SAR S%20CoV-2/Fact%20S heets/302-3801%20S ARS-COV-2%20PATIEN T%20FACT%20SHEET.p df Lab Interpretation Normal (test code = 35422-0) [facility]2022-03-06 19:17:07 Test Item Value Reference Interpretation Comments Range SARS-COV2/RT-PCR Negative Negative The SARS-Co V-2 (test code = target nucleic 74567-1) acids are not detected in thi s [...] revoked sooner. Fact Sheet for Healthcare Providers: https://www.Jack Erwin/Documents/Xp ert%20Xpress%20SAR S%20CoV-2/Fact%20S heets/302-3802%20S ARS-COV-2%20HEALTH CARE%20PROVIDERS%2 0FACT%20SHEET.pdf Fact Sheet for Healthcare Patients: https://www.Jack Erwin/Documents/Xp ert%20Xpress%20SAR S%20CoV-2/Fact%20S heets/302-3801%20S ARS-COV-2%20PATIEN T%20FACT%20SHEET.p df Lab Interpretation Normal (test code = 05686-8) [facility]2022-03-06 19:17:07 Test Item Value Reference Interpretation Comments Range SARS-COV2/RT-PCR Negative Negative The SARS-Co V-2 (test code = target nucleic 42495-3) acids are not detected in thi s [...] revoked sooner. Fact Sheet for Healthcare Providers: https://www.Jack Erwin/Documents/Xp ert%20Xpress%20SAR S%20CoV-2/Fact%20S heets/302-3802%20S ARS-COV-2%20HEALTH CARE%20PROVIDERS%2 0FACT%20SHEET.pdf Fact Sheet for Healthcare Patients: https://www.Jack Erwin/Documents/Xp ert%20Xpress%20SAR S%20CoV-2/Fact%20S heets/302-3801%20S ARS-COV-2%20PATIEN T%20FACT%20SHEET.p df Lab Interpretation Normal (test code = 43425-5) [facility]2022-03-06 19:17:07 Test Item Value Reference Interpretation Comments Range SARS-COV2/RT-PCR Negative Negative The SARS-Co V-2 (test code = target nucleic 01785-6) acids are not detected in thi s [...] revoked sooner. Fact Sheet for Healthcare Providers: https://www.Jack Erwin/Documents/Xp ert%20Xpress%20SAR S%20CoV-2/Fact%20S heets/302-3802%20S ARS-COV-2%20HEALTH CARE%20PROVIDERS%2 0FACT%20SHEET.pdf Fact Sheet for Healthcare Patients: https://www.Jack Erwin/Documents/Xp ert%20Xpress%20SAR S%20CoV-2/Fact%20S heets/302-3801%20S ARS-COV-2%20PATIEN T%20FACT%20SHEET.p df Lab Interpretation Normal (test code = 18742-4) [facility]2022-03-06 19:17:07 Test Item Value Reference Interpretation Comments Range SARS-COV2/RT-PCR Negative Negative The SARS-Co V-2 (test code = target nucleic 34939-2) acids are not detected in thi s [...] revoked sooner. Fact Sheet for Healthcare Providers: https://www.Jack Erwin/Documents/Xp ert%20Xpress%20SAR S%20CoV-2/Fact%20S heets/302-3802%20S ARS-COV-2%20HEALTH CARE%20PROVIDERS%2 0FACT%20SHEET.pdf Fact Sheet for Healthcare Patients: https://wwwBlueKai/Documents/Xp ert%20Xpress%20SAR S%20CoV-2/Fact%20S heets/302-3801%20S ARS-COV-2%20PATIEN T%20FACT%20SHEET.p df Lab Interpretation Normal (test code = 13364-6) [facility]2022-03-06 19:17:07 Test Item Value Reference Interpretation Comments Range SARS-COV2/RT-PCR Negative Negative The SARS-Co V-2 (test code = target nucleic 78444-2) acids are not detected in thi s [...] revoked sooner. Fact Sheet for Healthcare Providers: https://www.Jack Erwin/Documents/Xp ert%20Xpress%20SAR S%20CoV-2/Fact%20S heets/302-3802%20S ARS-COV-2%20HEALTH CARE%20PROVIDERS%2 0FACT%20SHEET.pdf Fact Sheet for Healthcare Patients: https://www.Jack Erwin/Documents/Xp ert%20Xpress%20SAR S%20CoV-2/Fact%20S heets/302-3801%20S ARS-COV-2%20PATIEN T%20FACT%20SHEET.p df Lab Interpretation Normal (test code = 42376-2) [facility]2022-03-06 19:17:07 Test Item Value Reference Interpretation Comments Range SARS-COV2/RT-PCR Negative Negative The SARS-Co V-2 (test code = target nucleic 23515-7) acids are not detected in thi s [...] revoked sooner. Fact Sheet for Healthcare Providers: https://www.Jack Erwin/Documents/Xp ert%20Xpress%20SAR S%20CoV-2/Fact%20S heets/302-3802%20S ARS-COV-2%20HEALTH CARE%20PROVIDERS%2 0FACT%20SHEET.pdf Fact Sheet for Healthcare Patients: https://wwwBlueKai/Documents/Xp ert%20Xpress%20SAR S%20CoV-2/Fact%20S heets/302-3801%20S ARS-COV-2%20PATIEN T%20FACT%20SHEET.p df Lab Interpretation Normal (test code = 61331-5) [facility]2022-03-06 19:17:07 Test Item Value Reference Interpretation Comments Range SARS-COV2/RT-PCR Negative Negative The SARS-Co V-2 (test code = target nucleic 76190-4) acids are not detected in thi s [...] revoked sooner. Fact Sheet for Healthcare Providers: https://www.Jack Erwin/Documents/Xp ert%20Xpress%20SAR S%20CoV-2/Fact%20S heets/302-3802%20S ARS-COV-2%20HEALTH CARE%20PROVIDERS%2 0FACT%20SHEET.pdf Fact Sheet for Healthcare Patients: https://www.Jack Erwin/Documents/Xp ert%20Xpress%20SAR S%20CoV-2/Fact%20S heets/302-3801%20S ARS-COV-2%20PATIEN T%20FACT%20SHEET.p df Lab Interpretation Normal (test code = 50206-0) [facility]2022-03-06 19:17:07 Test Item Value Reference Interpretation Comments Range SARS-COV2/RT-PCR Negative Negative The SARS-Co V-2 (test code = target nucleic 72775-7) acids are not detected in thi s [...] revoked sooner. Fact Sheet for Healthcare Providers: https://www.Jack Erwin/Documents/Xp ert%20Xpress%20SAR S%20CoV-2/Fact%20S heets/302-3802%20S ARS-COV-2%20HEALTH CARE%20PROVIDERS%2 0FACT%20SHEET.pdf Fact Sheet for Healthcare Patients: https://www.Jack Erwin/Documents/Xp ert%20Xpress%20SAR S%20CoV-2/Fact%20S heets/302-3801%20S ARS-COV-2%20PATIEN T%20FACT%20SHEET.p df Lab Interpretation Normal (test code = 98742-5) [facility]22-[facility]-06 19:17:07 Test Item Value Reference Interpretation Comments Range SARS-COV2/RT-PCR Negative Negative The SARS-Co V-2 (test code = target nucleic 91840-5) acids are not detected in thi s [...] revoked sooner. Fact Sheet for Healthcare Providers: https://www.Jack Erwin/Documents/Xp ert%20Xpress%20SAR S%20CoV-2/Fact%20S heets/302-3802%20S ARS-COV-2%20HEALTH CARE%20PROVIDERS%2 0FACT%20SHEET.pdf Fact Sheet for Healthcare Patients: https://www.Jack Erwin/Documents/Xp ert%20Xpress%20SAR S%20CoV-2/Fact%20S heets/302-3801%20S ARS-COV-2%20PATIEN T%20FACT%20SHEET.p df Lab Interpretation Normal (test code = 07202-7) [facility]2022-03-06 19:17:07 Test Item Value Reference Interpretation Comments Range SARS-COV2/RT-PCR Negative Negative The SARS-Co V-2 (test code = target nucleic 12851-7) acids are not detected in thi s [...] revoked sooner. Fact Sheet for Healthcare Providers: https://www.Jack Erwin/Documents/Xp ert%20Xpress%20SAR S%20CoV-2/Fact%20S heets/302-3802%20S ARS-COV-2%20HEALTH CARE%20PROVIDERS%2 0FACT%20SHEET.pdf Fact Sheet for Healthcare Patients: https://www.Jack Erwin/Documents/Xp ert%20Xpress%20SAR S%20CoV-2/Fact%20S heets/302-3801%20S ARS-COV-2%20PATIEN T%20FACT%20SHEET.p df Lab Interpretation Normal (test code = 77872-4) [facility]2022-03-06 19:17:07 Test Item Value Reference Interpretation Comments Range SARS-COV2/RT-PCR Negative Negative The SARS-Co V-2 (test code = target nucleic 14987-6) acids are not detected in thi s [...] revoked sooner. Fact Sheet for Healthcare Providers: https://www.Jack Erwin/Documents/Xp ert%20Xpress%20SAR S%20CoV-2/Fact%20S heets/302-3802%20S ARS-COV-2%20HEALTH CARE%20PROVIDERS%2 0FACT%20SHEET.pdf Fact Sheet for Healthcare Patients: https://www.Jack Erwin/Documents/Xp ert%20Xpress%20SAR S%20CoV-2/Fact%20S heets/302-3801%20S ARS-COV-2%20PATIEN T%20FACT%20SHEET.p df Lab Interpretation Normal (test code = 55009-8) [facility]2022-03-06 19:17:07 Test Item Value Reference Interpretation Comments Range SARS-COV2/RT-PCR Negative Negative The SARS-Co V-2 (test code = target nucleic 11060-2) acids are not detected in thi s [...] revoked sooner. Fact Sheet for Healthcare Providers: https://www.Jack Erwin/Documents/Xp ert%20Xpress%20SAR S%20CoV-2/Fact%20S heets/302-3802%20S ARS-COV-2%20HEALTH CARE%20PROVIDERS%2 0FACT%20SHEET.pdf Fact Sheet for Healthcare Patients: https://www.Jack Erwin/Documents/Xp ert%20Xpress%20SAR S%20CoV-2/Fact%20S heets/3023801%20S ARS-COV-2%20PATIEN T%20FACT%20SHEET.p df Lab Interpretation Normal (test code = 80888-0) [facility]2022-03-06 19:17:07 Test Item Value Reference Interpretation Comments Range SARS-COV2/RT-PCR Negative Negative The SARS-Co V-2 (test code = target nucleic 41855-0) acids are not detected in thi s [...] revoked sooner. Fact Sheet for Healthcare Providers: https://www.Jack Erwin/Documents/Xp ert%20Xpress%20SAR S%20CoV-2/Fact%20S heets/3023802%20S ARS-COV-2%20HEALTH CARE%20PROVIDERS%2 0FACT%20SHEET.pdf Fact Sheet for Healthcare Patients: https://www.[employer]/Documents/Xp ert%20Xpress%20SAR S%20CoV-2/Fact%20S heets/302-3801%20S ARS-COV-2%20PATIEN T%20FACT%20SHEET.p df Lab Interpretation Normal (test code = 94394-7) [facility] 19:17:07 Test Item Value Reference Interpretation Comments Range SARS-COV2/RT-PCR Negative Negative The SARS-Co V-2 (test code = target nucleic 84446-2) acids are not detected in thi s [...] revoked sooner. Fact Sheet for Healthcare Providers: https://www.[employer]/Documents/Xp ert%20Xpress%20SAR S%20CoV-2/Fact%20S heets/302-3802%20S ARS-COV-2%20HEALTH CARE%20PROVIDERS%2 0FACT%20SHEET.pdf Fact Sheet for Healthcare Patients: https://www.[employer]/Documents/Xp ert%20Xpress%20SAR S%20CoV-2/Fact%20S heets/302-3801%20S ARS-COV-2%20PATIEN T%20FACT%20SHEET.p df Lab Interpretation Normal (test code = 53269-3) [facility]2022-03-06 19:17:07 Test Item Value Reference Interpretation Comments Range SARS-COV2/RT-PCR Negative Negative The SARS-Co V-2 (test code = target nucleic 13797-1) acids are not detected in thi s [...] revoked sooner. Fact Sheet for Healthcare Providers: https://www.[employer]/Documents/Xp ert%20Xpress%20SAR S%20CoV-2/Fact%20S heets/302-3802%20S ARS-COV-2%20HEALTH CARE%20PROVIDERS%2 0FACT%20SHEET.pdf Fact Sheet for Healthcare Patients: https://www.[employer]/Documents/Xp ert%20Xpress%20SAR S%20CoV-2/Fact%20S heets/302-3801%20S ARS-COV-2%20PATIEN T%20FACT%20SHEET.p df Lab Interpretation Normal (test code = 81591-3) [facility]2022-03-06 19:17:07 Test Item Value Reference Interpretation Comments Range SARS-COV2/RT-PCR Negative Negative The SARS-Co V-2 (test code = target nucleic 21523-2) acids are not detected in thi s [...] revoked sooner. Fact Sheet for Healthcare Providers: https://www.[employer]/Documents/Xp ert%20Xpress%20SAR S%20CoV-2/Fact%20S heets/3023802%20S ARS-COV-2%20HEALTH CARE%20PROVIDERS%2 0FACT%20SHEET.pdf Fact Sheet for Healthcare Patients: https://www.[employer]/Documents/Xp ert%20Xpress%20SAR S%20CoV-2/Fact%20S heets/302-3801%20S ARS-COV-2%20PATIEN T%20FACT%20SHEET.p df Lab Interpretation Normal (test code = 71503-8) [facility]2022-03-06 19:17:07 Test Item Value Reference Interpretation Comments Range SARS-COV2/RT-PCR Negative Negative The SARS-Co V-2 (test code = target nucleic 57970-1) acids are not detected in thi s [...] revoked sooner. Fact Sheet for Healthcare Providers: https://www.[employer]/Documents/Xp ert%20Xpress%20SAR S%20CoV-2/Fact%20S heets/302-3802%20S ARS-COV-2%20HEALTH CARE%20PROVIDERS%2 0FACT%20SHEET.pdf Fact Sheet for Healthcare Patients: https://www.[employer]/Documents/Xp ert%20Xpress%20SAR S%20CoV-2/Fact%20S heets/302-3801%20S ARS-COV-2%20PATIEN T%20FACT%20SHEET.p df Lab Interpretation Normal (test code = 35541-0) [facility]2022-03-06 19:17:07 Test Item Value Reference Interpretation Comments Range SARS-COV2/RT-PCR Negative Negative The SARS-Co V-2 (test code = target nucleic 83069-8) acids are not detected in thi s [...] revoked sooner. Fact Sheet for Healthcare Providers: https://www.[employer]/Documents/Xp ert%20Xpress%20SAR S%20CoV-2/Fact%20S heets/302-3802%20S ARS-COV-2%20HEALTH CARE%20PROVIDERS%2 0FACT%20SHEET.pdf Fact Sheet for Healthcare Patients: https://www.[employer]/Documents/Xp ert%20Xpress%20SAR S%20CoV-2/Fact%20S heets/302-3801%20S ARS-COV-2%20PATIEN T%20FACT%20SHEET.p df Lab Interpretation Normal (test code = 21218-4) [facility])2022-03-06 19:17:07 Test Item Value Reference Range Interpretation Comments SARS-COV2/RT-PCR Negative Negative The SARS-Co V-2 target (test code = nucleic acids a re not 1925298) detected in thi s specimen. Negative result [...] revoked sooner. Fact Sheet for Healthcare Providers: https://www.[employer]. m/Documents/Xpert%20Xpress%20SARS%20CoV-2/Fact%20Sheets/302-3802%07CATM-SEI-9%20 HEALTHCARE%20PROVIDERS%20FACT%20SHEET.pdf Fact Sheet for Healthcare Patients: https://www.[employer] [facility]/Documents/Xpert%20Xp ress%20SARS%20CoV-2/Fact%20Sheets/302-3801%90AXUC-BJD-7%20PATIENT%20FACT%20SHEET .pdfCREATINE KINASE (CK)2022-03-06 16:19:14 Test Item Value Reference Range Interpretation Comments CREATINE KINASE TOTAL (BEAKER) (test 141 U/L 29-200 code = 380) Educational Assistant Teacher ID - BST4, [id number] 15:13:16 Test Item Value Reference Range Interpretation Comments FREE T4 (BEAKER) (test code = 655) 0.95 ng/dL 0.70-1.48 Educational Assistant Teacher ID - BSTSH/FREE T4 IF [id number] 15:13:16 Test Item Value Reference Range Interpretation Comments THYROID STIMULATING HORMONE 2.060 uIU/mL 0.350-4.940 (GILMAR) (test code = 772) Educational Assistant Teacher ID - BSB-TYPE NATRIURETIC FACTOR (BNP)2022-03-06 14:26:30 Test Item Value Reference Range Interpretation Comments B-TYPE NATRIURETIC PEPTIDE (GILMAR) < pg/mL 0-100 (test code = 700) Educational Assistant Teacher ID - JSHIGH SENSITIVITY TROPONIN [id number] 14:14:54 Test Item Value Reference Range Interpretation Comments HIGH SENSITIVITY < pg/ml See_Comment [Automated message] TROPONIN I (test code = The system which 3026165) generated this result transmitted ref erence range: <=35. Th e reference range was not used to interpr et this result as normal/abnormal . Educational Assistant Teacher ID - JSThe PROFESSOR OF MARKETING STAT High Sensitivity Troponin-I results should be used in conjunctionwith other diagnostic information such as ECG, clinical observations and information, and patient symptoms to aid in the diagnosis of MD.RAD, CHEST, 1 VIEW, NON [id number] 14:10:00Reason for exam:- >NEUROLOGIC PROBLEMShould this be performed at the bedside?->Yes [facility] : 1970 Sex: MFINAL REPORT Chest, 1 view, 03/06/2022 2:03 PM. History: Neurologic problem. Comparison: 03/28/2019. Discussion: The cardiomediastinal silhouette and pulmonary vasculature are within normal limits for a portable exam. The lungs are clear without evidence of consolidation or effusion. The soft tissues and osseous structures are intact. IMPRESSION: No acute cardiopulmonary abnormality. [facility]: [facility] Verified Date/Time: 03/06/2022 14:10:44 REHENSIVE METABOLIC [id number] 14:08:22 Test Item Value Reference Range Interpretation [...] S NOT APPLICABLE FOR DIALYSIS PATIEN TS. Educational Assistant Teacher ID - [id number] 14:07:49 Test Item Value Reference Range Interpretation Comments MAGNESIUM (BEAKER) (test code = 2.0 mg/dL 1.6-2.6 627) Educational Assistant Teacher ID - [id number] 14:07:49 Test Item Value Reference Range Interpretation Comments PHOSPHORUS (BEAKER) (test code = 5.6 mg/dL 2.3-4.7 H 604) Educational Assistant Teacher ID - JSLACTIC ACID, [id number] 13:51:04 Test Item Value Reference Range Interpretation Comments LACTATE BLOOD VENOUS 1.32 mmol/L 0.50-2.20 Specime n slightly (2) (BEAKER) (test hemolyzed code = 3682) Educational Assistant Teacher ID - JSCBC W/PLT COUNT & AUTO [id number] 13:47:24 Test Item Value Reference Range Interpretation [...] (BEAKER) (test code = 2801) Coronavirus, CoVID-19, [id number] 01:07:20 Test Item Value Reference Range Interpretation Comments COVID-19 (SARS-COV-2) Not Detected Not Detected INTERP RETATION: No (test code = 80308-5) detect able levels of SARS-CoV-2 Coronavirus (COVID-19) [...] SARS-CoV-2 mole cular diagnostic assa y utilizes Acid Mixer Mediated Amplification ( TMA) technology to r apidly detect the SARS -CoV-2 (COVID-19) viru s from respiratory adriana ples. In accordance w ith the FDA's kamran nce document "Polic y for Diagnostic Test s for Coronavirus Disease-2019 du [facility] the [facility]", thi s test was developed, and its performance characteristics were verified by the [facility] molecular diagn ostics laboratory and is authorized for clinical diagno stic use. This labor atory is certified un [place] the Clinical Laboratory Improvement Amendments (CLI A) as qualified to pe rform high complexity clinical labora tory testing. Lab Interpretation Normal (test code = 24789-9) [facility], [id number] 01:07:20 Test Item Value Reference Range Interpretation Comments COVID-19 (SARS-COV-2) Not Detected Not Detected INTERP RETATION: No (test code = 65266-4) detect able levels of SARS-CoV-2 Coronavirus (COVID-19) [...] SARS-CoV-2 mole cular diagnostic assa y utilizes Acid Mixer Mediated Amplification ( TMA) technology to r apidly detect the SARS -CoV-2 (COVID-19) viru s from respiratory adriana ples. In accordance w ith the FDA's kamran nce document "Polic y for Diagnostic Test s for Coronavirus Disease-2019 du [facility] the [facility]", thi s test was developed, and its performance characteristics were verified by the [facility] molecular diagn ostics laboratory and is authorized for clinical diagno stic use. This labor atory is certified un [place] the Clinical Laboratory Improvement Amendments (CLI A) as qualified to pe rform high complexity clinical labora tory testing. Lab Interpretation Normal (test code = 75810-2) Maged Ruelasronavirus, CoVID-19, [id number] 01:07:20 Test Item Value Reference Range Interpretation Comments COVID-19 (SARS-COV-2) Not Detected Not Detected INTERP RETATION: No (test code = 87758-9) detect able levels of SARS-CoV-2 Coronavirus (COVID-19) [...] SARS-CoV-2 mole cular diagnostic assa y utilizes Acid Mixer Mediated Amplification ( TMA) technology to r apidly detect the SARS -CoV-2 (COVID-19) viru s from respiratory adriana ples. In accordance w ith the FDA's kamran nce document "Polic y for Diagnostic Test s for Coronavirus Disease-2019 du [facility] the [facility]", thi s test was developed, and its performance characteristics were verified by the [facility] molecular diagn ostics laboratory and is authorized for clinical diagno stic use. This labor atory is certified [place] the Clinical Laboratory Improvement Amendments (CLI A) as qualified to pe rform high complexity clinical labora tory testing. Lab Interpretation Normal (test code = 61954-4) [facility], [id number] 01:07:20 Test Item Value Reference Range Interpretation Comments COVID-19 (SARS-COV-2) Not Detected Not Detected INTERP RETATION: No (test code = 27751-2) detect able levels of SARS-CoV-2 Coronavirus (COVID-19) [...] SARS-CoV-2 mole cular diagnostic assa y utilizes Acid Mixer Mediated Amplification ( TMA) technology to r apidly detect the SARS -CoV-2 (COVID-19) viru s from respiratory adriana ples. In accordance w ith the FDA's kamran nce document "Polic y for Diagnostic Test s for Coronavirus Disease-2019 du [facility] the Public [facility]", thi s test was developed, and its performance characteristics were verified by the [facility] molecular diagn ostics laboratory and is authorized for clinical diagno stic use. This labor atory is certified un [place] the Clinical Laboratory Improvement Amendments (CLI A) as qualified to rform high complexity clinical labora tory testing. Lab Interpretation Normal (test code = 63504-6) [facility], CoVID-19, [id number] 01:07:20 Test Item Value Reference Range Interpretation Comments COVID-19 (SARS-COV-2) Not Detected Not Detected INTERP RETATION: No (test code = 90709-2) detect able levels of SARS-CoV-2 Coronavirus (COVID-19) [...] SARS-CoV-2 mole cular diagnostic assa y utilizes Acid Mixer Mediated Amplification ( TMA) technology to r apidly detect the SARS -CoV-2 (COVID-19) viru s from respiratory adriana ples. In accordance w ith the FDA's kamran nce document "Polic y for Diagnostic Test s for Coronavirus Disease-2019 du [facility] the [facility]", thi s test was developed, and its performance characteristics were verified by the [facility] molecular diagn ostics laboratory and is authorized for clinical diagno stic use. This labor atory is certified un [place] the Clinical Laboratory Improvement Amendments (CLI A) as qualified to pe rform high complexity clinical labora tory testing. Lab Interpretation Normal (test code = 03446-2) Maged Aaronavirus, CoVID-19, [id number] 01:07:20 Test Item Value Reference Range Interpretation Comments COVID-19 (SARS-COV-2) Not Detected Not Detected INTERP RETATION: No (test code = 22475-3) detect able levels of SARS-CoV-2 Coronavirus (COVID-19) [...] SARS-CoV-2 mole cular diagnostic assa y utilizes Acid Mixer Mediated Amplification ( TMA) technology to r apidly detect the SARS -CoV-2 (COVID-19) viru s from respiratory adriana ples. In accordance w ith the FDA's kamran nce document "Polic y for Diagnostic Test s for Coronavirus Disease-2019 du ring the Public [facility]", thi s test was developed, and its performance characteristics were verified by the [facility] molecular diagn ostics laboratory and is authorized for clinical diagno stic use. This labor atory is certified un [place] the Clinical Laboratory Improvement Amendments (CLI A) as qualified to pe rform high complexity clinical labora tory testing. Lab Interpretation Normal (test code = 94950-8) Maged Aaronavirus, CoVID-19, [id number] 01:07:20 Test Item Value Reference Range Interpretation Comments COVID-19 (SARS-COV-2) Not Detected Not Detected INTERP RETATION: No (test code = 75987-7) detect able levels of SARS-CoV-2 Coronavirus (COVID-19) [...] SARS-CoV-2 mole cular diagnostic assa y utilizes Acid Mixer Mediated Amplification ( TMA) technology to r apidly detect the SARS -CoV-2 (COVID-19) viru s from respiratory adriana ples. In accordance w ith the FDA's kamran nce document "Polic y for Diagnostic Test s for Coronavirus Disease-2018 du ring the Public [facility]", thi s test was developed, and its performance characteristics were verified by the [facility] molecular diagn ostics laboratory and is authorized for clinical diagno stic use. This labor atory is certified un [place] the Clinical Laboratory Improvement Amendments (CLI A) as qualified to pe rform high complexity clinical labora tory testing. Lab Interpretation Normal (test code = 99747-6) [facility], [id number] 01:07:20 Test Item Value Reference Range Interpretation Comments COVID-19 (SARS-COV-2) Not Detected Not Detected INTERP RETATION: No (test code = 32887-4) detect able levels of SARS-CoV-2 Coronavirus (COVID-19) [...] SARS-CoV-2 mole cular diagnostic assa y utilizes Acid Mixer Mediated Amplification ( TMA) technology to r apidly detect the SARS -CoV-2 (COVID-19) viru s from respiratory adriana ples. In accordance w ith the FDA's kamran nce document "Polic y for Diagnostic Test s for Coronavirus Disease-2019 du [facility] the [facility]", thi s test was developed, and its performance characteristics were verified by the [facility] molecular diagn ostics laboratory and is authorized for clinical diagno stic use. This labor atory is certified un [place] the Clinical Laboratory Improvement Amendments (CLI A) as qualified to pe rform high complexity clinical labora tory testing. Lab Interpretation Normal (test code = 04709-4) [facility], [id number] 01:07:20 Test Item Value Reference Range Interpretation Comments COVID-19 (SARS-COV-2) Not Detected Not Detected INTERP RETATION: No (test code = 74802-8) detect able levels of SARS-CoV-2 Coronavirus (COVID-19) [...] SARS-CoV-2 mole cular diagnostic assa y utilizes Acid Mixer Mediated Amplification ( TMA) technology to r apidly detect the SARS -CoV-2 (COVID-19) viru s from respiratory adriana ples. In accordance w ith the FDA's kamran nce document "Polic y for Diagnostic Test s for Coronavirus Disease-2019 du ring the Public [facility] th Emergency", thi s test was developed, and its performance characteristics were verified by the [facility] molecular diagn ostics laboratory and is authorized for clinical diagno stic use. This labor atory is certified un [place] the Clinical Laboratory Improvement Amendments (CLI A) as qualified to pe rform high complexity clinical labora tory testing. Lab Interpretation Normal (test code = 94369-1) Maged Aaronavirus, CoVID-19, [id number] 01:07:20 Test Item Value Reference Range Interpretation Comments COVID-19 (SARS-COV-2) Not Detected Not Detected INTERP RETATION: No (test code = 25286-0) detect able levels of SARS-CoV-2 Coronavirus (COVID-19) [...] SARS-CoV-2 mole cular diagnostic assa y utilizes Acid Mixer Mediated Amplification ( TMA) technology to r apidly detect the SARS -CoV-2 (COVID-19) viru s from respiratory adriana ples. In accordance w ith the FDA's kamran nce document "Polic y for Diagnostic Test s for Coronavirus Disease-2019 du ring the [facility]", thi s test was developed, and its performance characteristics were verified by the [facility] molecular diagn ostics laboratory and is authorized for clinical diagno stic use. This labor atory is certified un [place] the Clinical Laboratory Improvement Amendments (CLI A) as qualified to pe rform high complexity clinical labora tory testing. Lab Interpretation Normal (test code = 35805-9) Maged Aaronavirus, CoVID-19, [id number] 01:07:20 Test Item Value Reference Range Interpretation Comments COVID-19 (SARS-COV-2) Not Detected Not Detected INTERP RETATION: No (test code = 45729-6) detect able levels of SARS-CoV-2 Coronavirus (COVID-19) [...] SARS-CoV-2 mole cular diagnostic assa y utilizes Acid Mixer Mediated Amplification ( TMA) technology to r apidly detect the SARS -CoV-2 (COVID-19) viru s from respiratory adriana ples. In accordance w ith the FDA's kamran nce document "Polic y for Diagnostic Test s for Coronavirus Disease-2018 du [facility] the [facility]", thi s test was developed, and its performance characteristics were verified by the [facility] molecular diagn ostics laboratory and is authorized for clinical diagno stic use. This labor atory is certified un [place] the Clinical Laboratory Improvement Amendments (CLI A) as qualified to pe rform high complexity clinical labora tory testing. Lab Interpretation Normal (test code = 14835-5) [facility], [id number] 01:07:20 Test Item Value Reference Range Interpretation Comments COVID-19 (SARS-COV-2) Not Detected Not Detected INTERP RETATION: No (test code = 30863-2) detect able levels of SARS-CoV-2 Coronavirus (COVID-19) [...] SARS-CoV-2 mole cular diagnostic assa y utilizes Acid Mixer Mediated Amplification ( TMA) technology to r apidly detect the SARS -CoV-2 (COVID-19) viru s from respiratory adriana ples. In accordance w ith the FDA's kamran nce document "Polic y for Diagnostic Test s for Coronavirus Disease-2019 du [facility] the [facility]", thi s test was developed, and its performance characteristics were verified by the [facility] molecular diagn ostics laboratory and is authorized for clinical diagno stic use. This labor atory is certified un [place] the Clinical Laboratory Improvement Amendments (CLI A) as qualified to pe rform high complexity clinical labora tory testing. Lab Interpretation Normal (test code = 19226-7) [facility], [id number] 01:07:20 Test Item Value Reference Range Interpretation Comments COVID-19 (SARS-COV-2) Not Detected Not Detected INTERP RETATION: No (test code = 71235-8) detect able levels of SARS-CoV-2 Coronavirus (COVID-19) [...] SARS-CoV-2 mole cular diagnostic assa y utilizes Acid Mixer Mediated Amplification ( TMA) technology to r apidly detect the SARS -CoV-2 (COVID-19) viru s from respiratory adriana ples. In accordance w ith the FDA's kamran nce document "Polic y for Diagnostic Test s for Coronavirus Disease-2019 du [facility] the [facility]", thi s test was developed, and its performance characteristics were verified by the [facility] molecular diagn ostics laboratory and is authorized for clinical diagno stic use. This labor atory is certified un est[place] the Clinical Laboratory Improvement Amendments (CLI A) as qualified to pe rform high complexity clinical labora tory testing. Lab Interpretation Normal (test code = 58137-9) Milligan KandiCoronavirus, CoVID-19, [id number] 01:07:20 Test Item Value Reference Range Interpretation Comments COVID-19 (SARS-COV-2) Not Detected Not Detected INTERP RETATION: No (test code = 51737-0) detect able levels of SARS-CoV-2 Coronavirus (COVID-19) [...] SARS-CoV-2 mole cular diagnostic assa y utilizes Acid Mixer Mediated Amplification ( TMA) technology to r apidly detect the SARS -CoV-2 (COVID-19) viru s from respiratory adriana ples. In accordance w ith the FDA's kamran nce document "Polic y for Diagnostic Test s for Coronavirus Disease-2019 du [facility] the [facility]", thi s test was developed, and its performance characteristics were verified by the [facility] molecular diagn ostics laboratory and is authorized for clinical diagno stic use. This labor atory is certified un est[place] the Clinical Laboratory Improvement Amendments (CLI A) as qualified to pe rform high complexity clinical labora tory testing. Lab Interpretation Normal (test code = 34606-5) [facility], [id number] 01:07:20 Test Item Value Reference Range Interpretation Comments COVID-19 (SARS-COV-2) Not Detected Not Detected INTERP RETATION: No (test code = 93730-9) detect able levels of SARS-CoV-2 Coronavirus (COVID-19) [...] SARS-CoV-2 mole cular diagnostic assa y utilizes Acid Mixer Mediated Amplification ( TMA) technology to r apidly detect the SARS -CoV-2 (COVID-19) viru s from respiratory adriana ples. In accordance w ith the FDA's kamran nce document "Polic y for Diagnostic Test s for Coronavirus Disease-2019 du [facility] the [facility]", thi s test was developed, and its performance characteristics were verified by the [facility] molecular diagn ostics laboratory and is authorized for clinical diagno stic use. This labor atory is certified un [place] the Clinical Laboratory Improvement Amendments (CLI A) as qualified to pe rform high complexity clinical labora tory testing. Lab Interpretation Normal (test code = 06235-1) [facility], [id number] 01:07:20 Test Item Value Reference Range Interpretation Comments COVID-19 (SARS-COV-2) Not Detected Not Detected INTERP RETATION: No (test code = 17030-3) detect able levels of SARS-CoV-2 Coronavirus (COVID-19) [...] SARS-CoV-2 mole cular diagnostic assa y utilizes Acid Mixer Mediated Amplification ( TMA) technology to r apidly detect the SARS -CoV-2 (COVID-19) viru s from respiratory adriana ples. In accordance w ith the FDA's kamran nce document "Polic y for Diagnostic Test s for Coronavirus Disease-2019 du [facility] the [facility]", thi s test was developed, and its performance characteristics were verified by the [facility] molecular diagn ostics laboratory and is authorized for clinical diagno stic use. This labor atory is certified un [place] the Clinical Laboratory Improvement Amendments (CLI A) as qualified to pe rform high complexity clinical labora tory testing. Lab Interpretation Normal (test code = 05401-0) [facility], [facility] [id number] 01:07:20 Test Item Value Reference Range Interpretation Comments COVID-19 (SARS-COV-2) Not Detected Not Detected INTERP RETATION: No (test code = 98765-1) detect able levels of SARS-CoV-2 Coronavirus (COVID-19) [...] SARS-CoV-2 mole cular diagnostic assa y utilizes Acid Mixer Mediated Amplification ( TMA) technology to r apidly detect the SARS -CoV-2 (COVID-19) viru s from respiratory adriana ples. In accordance w ith the FDA's kamran nce document "Polic y for Diagnostic Test s for Coronavirus Disease-2019 du ring the Public [facility] th Emergency", thi s test was developed, and its performance characteristics were verified by the [facility] molecular diagn ostics laboratory and is authorized for clinical diagno stic use. This labor atory is certified un est[place] the Clinical Laboratory Improvement Amendments (CLI A) as qualified to pe rform high complexity clinical labora tory testing. Lab Interpretation Normal (test code = 66970-0) [facility] KandiCoronavirus, CoVID-19, [id number] 01:07:20 Test Item Value Reference Range Interpretation Comments COVID-19 (SARS-COV-2) Not Detected Not Detected INTERP RETATION: No (test code = 22633-4) detect able levels of SARS-CoV-2 Coronavirus (COVID-19) [...] SARS-CoV-2 mole cular diagnostic assa y utilizes Acid Mixer Mediated Amplification ( TMA) technology to r apidly detect the SARS -CoV-2 (COVID-19) viru s from respiratory adriana ples. In accordance w ith the FDA's kamran nce document "Polic y for Diagnostic Test s for Coronavirus Disease-2019 du ring the Public [facility] Emergency", thi s test was developed, and its performance characteristics were verified by the [facility] molecular diagn ostics laboratory and is authorized for clinical diagno stic use. This labor atory is certified un [place] the Clinical Laboratory Improvement Amendments (CLI A) as qualified to pe rform high complexity clinical labora tory testing. Lab Interpretation Normal (test code = 37321-3) [facility], [id number] 01:07:20 Test Item Value Reference Range Interpretation Comments COVID-19 (SARS-COV-2) Not Detected Not Detected INTERP RETATION: No (test code = 12237-7) detect able levels of SARS-CoV-2 Coronavirus (COVID-19) [...] SARS-CoV-2 mole cular diagnostic assa y utilizes Acid Mixer Mediated Amplification ( TMA) technology to r apidly detect the SARS -CoV-2 (COVID-19) viru s from respiratory adriana ples. In accordance w ith the FDA's kamran nce document "Polic y for Diagnostic Test s for Coronavirus Disease-2019 du [facility] the Public [facility] Emergency", thi s test was developed, and its performance characteristics were verified by the [facility] molecular diagn ostics laboratory and is authorized for clinical diagno stic use. This labor atory is certified un [place] the Clinical Laboratory Improvement Amendments (CLI A) as qualified to pe rform high complexity clinical labora tory testing. Lab Interpretation Normal (test code = 90820-2) [facility], CoVID-19, [id number] 01:07:20 Test Item Value Reference Range Interpretation Comments COVID-19 (SARS-COV-2) Not Detected Not Detected INTERP RETATION: No (test code = 27627-5) detect able levels of SARS-CoV-2 Coronavirus (COVID-19) [...] SARS-CoV-2 mole cular diagnostic assa y utilizes Acid Mixer Mediated Amplification ( TMA) technology to r apidly detect the SARS -CoV-2 (COVID-19) viru s from respiratory adriana ples. In accordance w ith the FDA's kamran nce document "Polic y for Diagnostic Test s for Coronavirus Disease-2019 du ring the Public [facility] Emergency", thi s test was developed, and its performance characteristics were verified by the [facility] molecular diagn ostics laboratory and is authorized for clinical diagno stic use. This labor atory is certified un [place] the Clinical Laboratory Improvement Amendments (CLI A) as qualified to pe rform high complexity clinical labora tory testing. Lab Interpretation Normal (test code = 50725-9) [facility], [id number] 01:07:20 Test Item Value Reference Range Interpretation Comments COVID-19 (SARS-COV-2) Not Detected Not Detected INTERP RETATION: No (test code = 54086-9) detect able levels of SARS-CoV-2 Coronavirus (COVID-19) [...] SARS-CoV-2 mole cular diagnostic assa y utilizes Acid Mixer Mediated Amplification ( TMA) technology to r apidly detect the SARS -CoV-2 (COVID-19) viru s from respiratory adriana ples. In accordance w ith the FDA's kamran nce document "Polic y for Diagnostic Test s for Coronavirus Disease-2019 du [facility] the Public [facility] Emergency", thi s test was developed, and its performance characteristics were verified by the [facility] molecular diagn ostics laboratory and is authorized for clinical diagno stic use. This labor atory is certified un [place] the Clinical Laboratory Improvement Amendments (CLI A) as qualified to pe rform high complexity clinical labora tory testing. Lab Interpretation Normal (test code = 97389-3) [facility], CoVID-19, [id number] 01:07:20 Test Item Value Reference Range Interpretation Comments COVID-19 (SARS-COV-2) Not Detected Not Detected INTERP RETATION: No (test code = 61812-8) detect able levels of SARS-CoV-2 Coronavirus (COVID-19) [...] SARS-CoV-2 mole cular diagnostic assa y utilizes Acid Mixer Mediated Amplification ( TMA) technology to r apidly detect the SARS -CoV-2 (COVID-19) viru s from respiratory adriana ples. In accordance w ith the FDA's kamran nce document "Polic y for Diagnostic Test s for Coronavirus Disease-2019 du [facility] the Public [facility] Emergency", thi s test was developed, and its performance characteristics were verified by the [facility] molecular diagn ostics laboratory and is authorized for clinical diagno stic use. This labor atory is certified un [place] the Clinical Laboratory Improvement Amendments (CLI A) as qualified to pe rform high complexity clinical labora tory testing. Lab Interpretation Normal (test code = 14692-5) [facility] HospitalLeonardronavirus, CoVID-19, [id number] 01:07:20 Test Item Value Reference Range Interpretation Comments COVID-19 (SARS-COV-2) Not Detected Not Detected INTERP RETATION: No (test code = 95626-4) detect able levels of SARS-CoV-2 Coronavirus (COVID-19) [...] SARS-CoV-2 mole cular diagnostic assa y utilizes Acid Mixer Mediated Amplification ( TMA) technology to r apidly detect the SARS -CoV-2 (COVID-19) viru s from respiratory adriana ples. In accordance w ith the FDA's kamran nce document "Polic y for Diagnostic Test s for Coronavirus Disease-2019 du [facility] the Public [facility] Emergency", thi s test was developed, and its performance characteristics were verified by the [facility] molecular diagn ostics laboratory and is authorized for clinical diagno stic use. This labor atory is certified un [place] the Clinical Laboratory Improvement Amendments (CLI A) as qualified to pe rform high complexity clinical labora tory testing. Lab Interpretation Normal (test code = 56660-1) [facility] Surajronavirus, CoVID-19, [id number] 01:07:20 Test Item Value Reference Range Interpretation Comments COVID-19 (SARS-COV-2) Not Detected Not Detected INTERP RETATION: No (test code = 79434-4) detect able levels of SARS-CoV-2 Coronavirus (COVID-19) [...] SARS-CoV-2 mole cular diagnostic assa y utilizes Acid Mixer Mediated Amplification ( TMA) technology to r apidly detect the SARS -CoV-2 (COVID-19) viru s from respiratory adriana ples. In accordance w ith the FDA's kamran nce document "Polic y for Diagnostic Test s for Coronavirus Disease-2019 du [facility] the Public [facility] th Emergency", thi s test was developed, and its performance characteristics were verified by the [facility] molecular diagn ostics laboratory and is authorized for clinical diagno stic use. This labor atory is certified un [place] the Clinical Laboratory Improvement Amendments (CLI A) as qualified to pe rform high complexity clinical labora tory testing. Lab Interpretation Normal (test code = 15132-3) [facility], CoVID-19, [id number] 01:07:20 Test Item Value Reference Range Interpretation Comments COVID-19 (SARS-COV-2) Not Detected Not Detected INTERP RETATION: No (test code = 17581-3) detect able levels of SARS-CoV-2 Coronavirus (COVID-19) [...] SARS-CoV-2 mole cular diagnostic assa y utilizes Acid Mixer Mediated Amplification ( TMA) technology to r apidly detect the SARS -CoV-2 (COVID-19) viru s from respiratory adriana ples. In accordance w ith the FDA's kamran nce document "Polic y for Diagnostic Test s for Coronavirus Disease-2019 du [facility] the Public [facility] Emergency", thi s test was developed, and its performance characteristics were verified by the [facility] molecular diagn ostics laboratory and is authorized for clinical diagno stic use. This labor atory is certified un [place] the Clinical Laboratory Improvement Amendments (CLI A) as qualified to pe rform high complexity clinical labora tory testing. Lab Interpretation Normal (test code = 23970-9) [facility] ORF1ab Resp Ql OLENA+[id number] 01:07:20 Test Item Value Reference Range Interpretation Comments Hospitalized? (test No code = 25032-2) ICU? (test code = No 37870-5) Symptomatic as No defined by CDC? (test code = 58174-6) Employed in No Healthcare? (test code = 93291-4) Resident in a No congregate care setting (including nursing homes, residential care for people with intellectual and developmental disabilities, psychiatric treatment facilities, group homes, board and care homes, homeless prison, foster care or other): (test code = 32273-7) SARS-CoV-2 ORF1ab NOT DETECTED Not Detected INTERPRETA TION: No Resp Ql OLENA+probe detectable levels of (test code = SARS-CoV-2 39327-4) Coronavirus (COVID-19) were present in this patient's [...] SARS-CoV-2 mole cular diagnostic assa y utilizes Acid Mixer Mediated Amplification ( TMA) technology to r apidly detect the SARS -CoV-2 (COVID-19) viru s from respiratory adriana ples. In accordance with\\XC2A0\\the FDA's guidance docume nt "Policy for Diagnostic Test s for Coronavirus Disease-2019 du [facility] the [facility] th Emergency", amalia s test was developed, and its performance characteristics were verified by the [facility] molecular diagn ostics laboratory and is authorized for clinical diagno stic use. \\XC2A0\\Amalia s laboratory is certified under the Clinical Labora tory Improvement Amendments (CLI A) as qualified to pe rform high complexity clinical labora tory testing. [facility] [id number] 08:09:01 Test Item Value Reference Range Interpretation Comments Glucose POC (test code = 95270711) 85 mg/dL 74-106 Lab Interpretation (test code = Normal 78038-8) [facility] [id number] 08:09:01 Test Item Value Reference Range Interpretation Comments Glucose POC (test code = 37713384) 85 mg/dL 74-106 Lab Interpretation (test code = Normal 52319-5) [facility] [id number] 08:09:01 Test Item Value Reference Range Interpretation Comments Glucose POC (test code = 39875329) 85 mg/dL 74-106 Lab Interpretation (test code = Normal 37670-5) [facility] [id number] 08:09:01 Test Item Value Reference Range Interpretation Comments Glucose POC (test code = 62585379) 85 mg/dL 74-106 Lab Interpretation (test code = Normal 40068-9) [facility] [id number] 08:09:01 Test Item Value Reference Range Interpretation Comments Glucose POC (test code = 14504432) 85 mg/dL 74-106 Lab Interpretation (test code = Normal 59301-5) [facility] [id number] 08:09:01 Test Item Value Reference Range Interpretation Comments Glucose POC (test code = 44511893) 85 mg/dL 74-106 Lab Interpretation (test code = Normal 17911-0) [facility] [id number] 08:09:01 Test Item Value Reference Range Interpretation Comments Glucose POC (test code = 02737441) 85 mg/dL 74-106 Lab Interpretation (test code = Normal 52293-8) [facility] [id number] 08:09:01 Test Item Value Reference Range Interpretation Comments Glucose POC (test code = 07570287) 85 mg/dL 74-106 Lab Interpretation (test code = Normal 79251-9) [facility] [id number] 08:09:01 Test Item Value Reference Range Interpretation Comments Glucose POC (test code = 22799695) 85 mg/dL 74-106 Lab Interpretation (test code = Normal 39609-7) [facility] [id number] 08:09:01 Test Item Value Reference Range Interpretation Comments Glucose POC (test code = 31936566) 85 mg/dL 74-106 Lab Interpretation (test code = Normal 83511-9) [facility] [id number] 08:09:01 Test Item Value Reference Range Interpretation Comments Glucose POC (test code = 32524717) 85 mg/dL 74-106 Lab Interpretation (test code = Normal 21797-4) [facility] [id number] 08:09:01 Test Item Value Reference Range Interpretation Comments Glucose POC (test code = 80829082) 85 mg/dL 74-106 Lab Interpretation (test code = Normal 72909-9) [facility] [id number] 08:09:01 Test Item Value Reference Range Interpretation Comments Glucose POC (test code = 80194420) 85 mg/dL 74-106 Lab Interpretation (test code = Normal 48290-1) [facility] [id number] 08:09:01 Test Item Value Reference Range Interpretation Comments Glucose POC (test code = 50127773) 85 mg/dL 74-106 Lab Interpretation (test code = Normal 21892-6) [facility] [id number] 08:09:01 Test Item Value Reference Range Interpretation Comments Glucose POC (test code = 85976762) 85 mg/dL 74-106 Lab Interpretation (test code = Normal 48394-6) [facility] [id number] 08:09:01 Test Item Value Reference Range Interpretation Comments Glucose POC (test code = 85775559) 85 mg/dL 74-106 Lab Interpretation (test code = Normal 83144-8) [facility] [id number] 08:09:01 Test Item Value Reference Range Interpretation Comments Glucose POC (test code = 19219510) 85 mg/dL 74-106 Lab Interpretation (test code = Normal 00997-8) [facility] [id number] 08:09:01 Test Item Value Reference Range Interpretation Comments Glucose POC (test code = 85452712) 85 mg/dL 74-106 Lab Interpretation (test code = Normal 87470-2) [facility] [id number] 08:09:01 Test Item Value Reference Range Interpretation Comments Glucose POC (test code = 34365130) 85 mg/dL 74-106 Lab Interpretation (test code = Normal 03019-5) [facility] [id number] 08:09:01 Test Item Value Reference Range Interpretation Comments Glucose POC (test code = 95752992) 85 mg/dL 74-106 Lab Interpretation (test code = Normal 10268-6) [facility] [id number] 08:09:01 Test Item Value Reference Range Interpretation Comments Glucose POC (test code = 25086385) 85 mg/dL 74-106 Lab Interpretation (test code = Normal 33166-6) [facility] [id number] 08:09:01 Test Item Value Reference Range Interpretation Comments Glucose POC (test code = 40350402) 85 mg/dL 74-106 Lab Interpretation (test code = Normal 25228-6) [facility] [id number] 08:09:01 Test Item Value Reference Range Interpretation Comments Glucose POC (test code = 10135350) 85 mg/dL 74-106 Lab Interpretation (test code = Normal 20290-6) [facility] [id number] 08:09:01 Test Item Value Reference Range Interpretation Comments Glucose POC (test code = 98730254) 85 mg/dL 74-106 Lab Interpretation (test code = Normal 55579-6) [facility] [id number] 08:09:01 Test Item Value Reference Range Interpretation Comments Glucose POC (test code = 79923473) 85 mg/dL 74-106 Lab Interpretation (test code = Normal 54429-8) [facility], [facility], [id number] 23:25:40 Test Item Value Reference Range Interpretation Comments COVID-19 (SARS-COV-2) Not Detected Not Detected INTERP RETATION: No (test code = 54719-3) detect able levels of SARS-CoV-2 Coronavirus (COVID-19) [...] SARS-CoV-2 mole cular diagnostic assa y utilizes Acid Mixer Mediated Amplification ( TMA) technology to r apidly detect the SARS -CoV-2 (COVID-19) viru s from respiratory adriana ples. In accordance w ith the FDA's kamran nce document "Polic y for Diagnostic Test s for Coronavirus Disease-2019 du ring the Public [facility] Emergency", thi s test was developed, and its performance characteristics were verified by the [facility] molecular diagn ostics laboratory and is authorized for clinical diagno stic use. This labor atory is certified un [place] the Clinical Laboratory Improvement Amendments (CLI A) as qualified to pe rform high complexity clinical labora tory testing. Lab Interpretation Normal (test code = 02067-8) [facility]xozaiRBMJ-XpW-[facility] ORF1ab Resp Ql OLENA+yoepa2442-95-53 23:25:40 Test Item Value Reference Range Interpretation Comments Hospitalized? (test No code = 85977-9) ICU? (test code = No 35806-6) Symptomatic as No defined by CDC? (test code = 81917-2) Employed in No Healthcare? (test code = 01258-9) Resident in a No congregate care setting (including nursing homes, residential care for people with intellectual and developmental disabilities, psychiatric treatment facilities, group homes, board and care homes, homeless prison, foster care or other): (test code = 38008-5) SARS-CoV-2 ORF1ab NOT DETECTED Not Detected INTERPRETA TION: No Resp Ql OLENA+probe detectable levels of (test code = SARS-CoV-2 58536-1) Coronavirus (COVID-19) were present in this patient's [...] SARS-CoV-2 mole cular diagnostic assa y utilizes Acid Mixer Mediated Amplification ( TMA) technology to r apidly detect the SARS -CoV-2 (COVID-19) viru s from respiratory adriana ples. In accordance with\\XC2A0\\the FDA's guidance docume nt "Policy for Diagnostic Test s for Coronavirus Disease-2019 du ring the Public [facility] Emergency", amalia s test was developed, and its performance characteristics were verified by the [facility] molecular diagn ostics laboratory and is authorized for clinical diagno stic use. \\XC2A0\\Thi s laboratory is certified under the Clinical Labora tory Improvement Amendments (CLI A) as qualified to pe rform high complexity clinical labora tory testing. [facility]12 Lead [id number] 15:46:1012 LEAD EKG FOR [facility] Test Date: 5553-56-24Zsc Name: DORA MCNEILL Department: 5ECIPatient ID: [id number] Room: Gender: M Senior [employer] Laboratory Director: [id number]: 1970 Requested By: SUSHIL Cho Number: [id number] Reading MD: Rene Patterson MeasurementsIntervals [place] Rate: 61 P: 72PR: 152 QRS: 55QRSD: 106 T: 63QT: 398 QTc: 400 Interpretive StatementsSINUS RHYTHMPOSSIBLE RIGHT VENTRICULAR CONDUCTION DELAY [RSR (QR) IN V1/V2]Electronically Signed On 01-22-2022 8:30:45 CDT by Rene Valle Mnljza91 Lead [id number] 15:46:1012 LEAD EKG FOR [facility] Test Date: [id number] Name: DORA MCNEILL Department: 5ECIPatient ID: [id number] Room: Gender: M Senior [employer] Laboratory Director: [id number]: 1970 Requested By: SUSHIL Cho Number: [id number] Reading MD: Rene Patterson MeasurementsIntervals [place] Rate: 61 P: 72PR: 152 QRS: 55QRSD: 106 T: 63QT: 398 QTc: 400 Interpretive StatementsSINUS RHYTHMPOSSIBLE RIGHT VENTR ICULAR CONDUCTION DELAY [RSR (QR) IN V1/V2]Electronically Signed On 01-22-2022 8:30:45 CDT by Renerick [employer] 2020[employer] Xjbzzp91 Lead [id number] 15:46:1012 LEAD EKG FOR [facility] Test Date: [id number] Name: DORA MCNEILL Department: 5ECIPatient ID: [id number] Room: Gender: M Senior [employer] Laboratory Director: [id number]: 1970 Requested By: SUSHIL Cho Number: [id number] Reading MD: Rene Patterson MeasurementsIntervals [place] Rate: 61 P: 72PR: 152 QRS: 55QRSD: 106 T: 63QT: 398 QTc: 400 Interpretive StatementsSINUS RHYTHMPOSSIBLE RIGHT VENTRICULAR CONDUCTION DELAY [RSR (QR) IN V1/V2]Electronically Signed On 01-22-2022 8:30:45 CDT by Rene [employer] 2020[employer]12 Lead [id number] 15:46:1012 LEAD EKG FOR [facility] Test Date: [id number] Name: DORA MCNEILL Department: 5ECIPatient ID: [id number] Room: Gender: M Senior [employer] Laboratory Director: [id number]: 1970 Requested By: SUSHIL Cho Number: [id number] Reading MD: Rene Patterson MeasurementsIntervals [place] Rate: 61 P: 72PR: 152 QRS: 55QRSD: 106 T: 63QT: 398 QTc: 400 Interpretive StatementsSINUS RHYTHMPOSSIBLE RIGHT VENTRICULAR CONDUCTION DELAY [RSR (QR) IN V1/V2]Electronically Signed On 01-22-2022 8:30:45 CDT by Rene Valle Nurzdy75 Lead [id number] 15:46:1012 LEAD EKG FOR [facility] Test Date: [id number] Name: DORA MCNEILL Department: 5EPatient ID: [id number] Room: Gender: M Senior [employer] Laboratory Director: [id number]: 1970 Requested By: SUSHIL Cho Number: [id number] Reading MD: Rene Patterson MeasurementsIntervals [place] Rate: 61 P: 72PR: 152 QRS: 55QRSD: 106 T: 63QT: 398 QTc: 400 Interpretive StatementsSINUS RHYTHMPOSSIBLE RIGHT VENTR ICULAR CONDUCTION DELAY [RSR (QR) IN V1/V2]Electronically Signed On 01-22-2022 8:30:45 CDT by Rene Valle Vxyjjy59 Lead [id number] 15:46:1012 LEAD EKG FOR [facility] Test Date: [id number] Name: DORA MCNEILL Department: 5ECIPatient ID: [id number] Room: Gender: M Senior [employer] Laboratory Director: [id number]: 1970 Requested By: SUSHIL Cho Number: [id number] Reading : Rene Patterson MeasurementsIntervals [place] Rate: 61 P: 72PR: 152 QRS: 55QRSD: 106 T: 63QT: 398 QTc: 400 Interpretive StatementsSINUS RHYTHMPOSSIBLE RIGHT VENTRICULAR CONDUCTION DELAY [RSR (QR) IN V1/V2]Electronically Signed On 01-22-2022 8:30:45 CDT by [place] [address] Lead [id number] 15:46:1012 LEAD EKG FOR [facility] Test Date: [id number] Name: DORA MCNEILL Department: 5ECIPatient ID: [id number] Room: Gender: M Senior [employer] Laboratory Director: [id number]: 1970 Requested By: SUSHIL Cho Number: [id number] Reading MD: Rene Patterson MeasurementsIntervals [place] Rate: 61 P: 72PR : 152 QRS: 55QRSD: 106 T: 63QT: 398 QTc: 400 Interpretive StatementsSINUS RHYTHMPOSSIBLE RIGHT VENTRICULAR CONDUCTION DELAY [RSR (QR) IN V1/V2]Electronically Signed On 01-22-2022 8:30:45 CDT by [facility] CenterMoneyspyderKristen [place] [address] Lead [id number] 15:46:1012 LEAD EKG FOR [facility] Test Date: [id number] Name: DORA MCNEILL Department: 5ECIPatient ID: [id number] Room: Gender: M Senior [employer] Laboratory Director: [id number]: 1970 Requested By: SUSHIL Cho Number: [id number] Reading MD: Rene Patterson MeasurementsIntervals [place] Rate: 61 P: 72PR:152 QRS: 55QRSD: 106 T: 63QT: 398 QTc: 400 Interpretive StatementsSINUS RHYTHMPOSSIBLE RIGHT VENTRICULAR CONDUCTION DELAY [RSR (QR) IN V1/V2]Electronically Signed On 01-22-2022 8:30:45 CDT by [facility] CenterDebbyA[facility]12 Lead [id number] 15:46:1012 LEAD EKG FOR [facility] Test Date: [id number] Name: DORA MCNEILL Department: 5ECIPatient ID: [id number] Room: Gender: M Senior [employer] Laboratory Director: [id number]: 1970 Requested By: SUSHIL Cho Number: [id number] Reading MD: Rene Patterson MeasurementsIntervals [place] Rate: 61 P: 72PR: 152 QRS: 55QRSD: 106 T: 63QT: 398 QTc: 400 Interpretive StatementsSINUS RHYTHMPOSSIBLE RIGHT VENTRI CULAR CONDUCTION DELAY [RSR (QR) IN V1/V2]Electronically Signed On 01-22-2022 8:30:45 CDT by Rene Valle Wcamya56 Lead [id number] 15:46:1012 LEAD EKG FOR [facility] Test Date: 0542-27-59Ajd Name: DORA MCNEILL Department: 5ECIPatient ID: [id number] Room: Gender: M Senior Cytogenetics Laboratory Director: [id number]: 1970 Requested By: SUSHIL Cho Number: [id number] Reading MD: Rene Patterson MeasurementsIntervals [place] Rate: 61 P: 72PR:152 QRS: 55QRSD: 106 T: 63QT: 398 QTc: 400 Interpretive StatementsSINUS RHYTHMPOSSIBLE RIGHT VENTRICULAR CONDUCTION DELAY [RSR (QR) IN V1/V2]Electronically Signed On 01-22-2022 8:30:45 CDT by Rene Valle Zznpuc63 Lead [id number] 15:46:1012 LEAD EKG FOR [facility] Test Date: 0551-77-34Ejb Name: DORA MCNEILL Department: 5ECIPatient ID: [id number] Room: Gender: M Senior Cytogenetics Laboratory Director: [id number]: 1970 Requested By: SUSHIL Cho Number: [id number] Reading MD: Rene Patterson MeasurementsIntervals [place] Rate: 61 P: 72PR : 152 QRS: 55QRSD: 106 T: 63QT: 398 QTc: 400 Interpretive StatementsSINUS RHYTHMPOSSIBLE RIGHT VENTRICULAR CONDUCTION DELAY [RSR (QR) IN V1/V2]Electronically Signed On 01-22-2022 8:30:45 CDT by Rene [facility]12 Lead [id number] 15:46:1012 LEAD EKG FOR [facility] Test Date: 2647-99-81Jad Name: DORA MCNEILL Department: 5ECIPatient ID: [id number] Room: Gender: M Senior Cytogenetics Laboratory Director: [id number]: 1970 Requested By: SUSHIL Cho Number: [id number] Reading MD: Rene Patterson MeasurementsIntervals [place] Rate: 61 P: 72PR: 152 QRS: 55QRSD: 106 T: 63QT: 398 QTc: 400 Interpretive StatementsSINUS RHYTHMPOSSIBLE RIGHT VENTRICULAR CONDUCTION DELAY [RSR (QR) IN V1/V2]Electronically Signed On 01-22-2022 8:30:45 CDT by Rene [employer] 2020[facility] Aezqut29 Lead [id number] 15:46:1012 LEAD EKG FOR [facility] Test Date: 1128-69-37Aep Name: DORA MCNEILL Department: 5ECIPatient ID: [id number] Room: Gender: M Senior Cytogenetics Laboratory Director: [id number]: 1970 Requested By: SUSHIL Cho Number: [id number] Lawson MD: Rene Patterson MeasurementsIntervals [place] Rate: 61 P: 72PR: 152 QRS: 55QRSD: 106 T: 63QT: 398 QTc: 400 Interpretive StatementsSINUS RHYTHMPOSSIBLE RIGHT VENTRI CULAR CONDUCTION DELAY [RSR (QR) IN V1/V2]Electronically Signed On 01-22-2022 8:30:45 CDT by Rene [employer] 2020[employer]12 Lead [id number] 15:46:1012 LEAD EKG FOR [facility] Test Date: 7781-27-57Ebe Name: DORA MCNEILL Department: 5ECIPatient ID: [id number] Room: Gender: M Senior Cytogenetics Laboratory Director: [id number]: 1970 Requested By: SUSHIL Cho Number: [id number] Reading MD: Rene Patterson MeasurementsIntervals [place] Rate: 61 P: 72PR: 152 QRS: 55QRSD: 106 T: 63QT: 398 QTc: 400 Interpretive StatementsSINUS RHYTHMPOSSIBLE RIGHT VENTRICULAR CONDUCTION DELAY [RSR (QR) IN V1/V2]Electronically Signed On 01-22-2022 8:30:45 CDT by [facility] CenterDebbyProject 2020[employer]12 Lead [id number] 15:46:1012 LEAD EKG FOR [facility] Test Date: 2832-50-89Znj Name: DORA MCNEILL Department: 5ECIPatient ID: [id number] Room: Gender: M Senior Cytogenetics Laboratory Director: [id number]: 1970 Requested By: SUSHIL Cho Number: [id number] Reading MD: Rene Patterson MeasurementsIntervals [place] Rate: 61 P: 72P R: 152 QRS: 55QRSD: 106 T: 63QT: 398 QTc: 400 Interpretive StatementsSINUS RHYTHMPOSSIBLE RIGHT VENTRICULAR CONDUCTION DELAY [RSR (QR) IN V1/V2]Electronically Signed On 01-22-2022 8:30:45 CDT by Rene [employer]Com[employer]12 Lead [id number] 15:46:1012 LEAD EKG FOR [facility] Test Date: 8238-28-33Fij Name: DORA MCNEILL Department: 5ECIPatient ID: [id number] Room: Gender: M Senior Cytogenetics Laboratory Director: [id number]: 1970 Requested By: SUSHIL Cho Number: [id number] Reading MD: Rene Patterson MeasurementsIntervals [place] Rate: 61 P: 72PR: 152 QRS: 55QRSD: 106 T: 63QT: 398 QTc: 400 Interpretive StatementsSINUS RHYTHMPOSSIBLE RIGHT VENTRICULAR CONDUCTION DELAY [RSR (QR) IN V1/V2]Electronically Signed On 01-22-2022 8:30:45 CDT by Rene [employer] LPChris[employer]12 Lead [id number] 15:46:1012 LEAD EKG FOR [facility] Test Date: 4932-99-30Bzl Name: DORA MCNEILL Department: 5ECIPatient ID: [id number] Room: Gender: M Senior Cytogenetics Laboratory Director: [id number]: 1970 Requested By: SUSHIL Cho Number: [id number] Reading MD: Rene Patterson MeasurementsIntervals [place] Rate: 61 P: 72PR: 152 QRS: 55QRSD: 106 T: 63QT: 398 QTc: 400 Interpretive StatementsSINUS RHYTHMPOSSIBLE RIGHT VENTR ICULAR CONDUCTION DELAY [RSR (QR) IN V1/V2]Electronically Signed On 01-22-2022 8:30:45 CDT by Rene [employer]12 Lead [id number] 15:46:1012 LEAD EKG FOR [facility] Test Date: 4541-74-71Tcr Name: DORA MCNEILL Department: 5EPatient ID: [id number] Room: Gender: M Senior Cytogenetics Laboratory Director: [id number]: 1970 Requested By: SUSHIL Cho Number: [id number] Reading MD: Rene Patterson MeasurementsIntervals [place] Rate: 61 P: 72PR: 152 QRS: 55QRSD: 106 T: 63QT: 398 QTc: 400 Interpretive StatementsSINUS RHYTHMPOSSIBLE RIGHT VENTRICULAR CONDUCTION DELAY [RSR (QR) IN V1/V2]Electronically Signed On 01-22-2022 8:30:45 CDT by [facility] CenterDebbyKristen Ville [address] Lead [id number] 15:46:1012 LEAD EKG FOR [facility] Test Date: 4686-57-81Wid Name: DORA MCNEILL Department: 5EPatient ID: [id number] Room: Gender: M Senior Cytogenetics Laboratory Director: [id number]: 1970 Requested By: SUSHIL Cho Number: [id number] Reading MD: Rene Patterson MeasurementsIntervals [place] Rate: 61 P: 72PR : 152 QRS: 55QRSD: 106 T: 63QT: 398 QTc: 400 Interpretive StatementsSINUS RHYTHMPOSSIBLE RIGHT VENTRICULAR CONDUCTION DELAY [RSR (QR) IN V1/V2]Electronically Signed On 01-22-2022 8:30:45 CDT by Rene [employer] LPDebbyProject 2020[place]paTerri [place] [address] Lead [id number] 15:46:1012 LEAD EKG FOR [facility] Test Date: 4612-42-05Bzm Name: DORA MCNEILL Department: 5ECIPatient ID: [id number] Room: Gender: M Senior Cytogenetics Laboratory Director: [id number]: 1970 Requested By: SUSHIL Cho Number: [id number] Reading MD: Rene Patterson MeasurementsIntervals [place] Rate: 61 P: 72PR: 152 QRS: 55QRSD: 106 T: 63QT: 398 QTc: 400 Interpretive StatementsSINUS RHYTHMPOSSIBLE RIGHT VENTRICULAR CONDUCTION DELAY [RSR (QR) IN V1/V2]Electronically Signed On 01-22-2022 8:30:45 CDT by Rene RahmanSMSHarris Ebwixa02 Lead [id number] 15:46:1012 LEAD EKG FOR [facility] Test Date: 0276-83-17Zhk Name: DORA MCNEILL Department: 5ECIPatient ID: [id number] Room: Gender: M Senior Cytogenetics Laboratory Director: [id number]: 1970 Requested By: SUSHIL Cho Number: [id number] Reading MD: Rene Patterson MeasurementsIntervals [place] Rate: 61 P: 72PR: 152 QRS: 55QRSD: 106 T: 63QT: 398 QTc: 400 Interpretive StatementsSINUS RHYTHMPOSSIBLE RIGHT VENTRI CULAR CONDUCTION DELAY [RSR (QR) IN V1/V2]Electronically Signed On 01-22-2022 8:30:45 CDT by Rene SadiMSComparis Ewnmry07 Lead [id number] 15:46:1012 LEAD EKG FOR [facility] Test Date: 8253-22-66Huy Name: DORA MCNEILL Department: 5ECIPatient ID: [id number] Room: Gender: M Senior Cytogenetics Laboratory Director: [id number]: 1970 Requested By: SUSHIL Cho Number: [id number] Reading MD: Rene Patterson MeasurementsIntervals [place] Rate: 61 P: 72PR: 152 QRS: 55QRSD: 106 T: 63QT: 398 QTc: 400 Interpretive StatementsSINUS RHYTHMPOSSIBLE RIGHT VENTRICULAR CONDUCTION DELAY [RSR (QR) IN V1/V2]Electronically Signed On 01-22-2022 8:30:45 CDT by Rene SadiCACompaTrios Health12 Lead [id number] 15:46:1012 LEAD EKG FOR [facility] Test Date: 6148-56-47Dqz Name: DORA MCNEILL Department: 5ECIPatient ID: [id number] Room: Gender: M Senior Cytogenetics Laboratory Director: [id number]: 1970 Requested By: SUSHIL Cho Number: [id number] Reading MD: Rene Patterson MeasurementsIntervals [place] Rate: 61 P: 72PR: 152 QRS: 55QRSD: 106 T: 63QT: 398 QTc: 400 Interpretive StatementsSINUS RHYTHMPOSSIBLE RIGHT VENTRICULAR CONDUCTION DELAY [RSR (QR) IN V1/V2]Electronically Signed On 01-22-2022 8:30:45 CDT by Rene Valle [facility] 1+2 Ab+HIV1 p24 Ag SerPl Ql [id number] 07:02:58 Test Item Value Reference Range Interpretation Comments HIV 1+2 Ab+HIV1 p24 Ag SerPl Ql IA NEGATIVE Negative (test code = 58026-4) [id number] 21:23:2512 LEAD EKG FOR [facility] Test Date: 5449-40-73Mnu Name: DORA MCNEILL Department: 5520Patient ID: [id number] Room: 6G54Cstzoq: 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1970 Requested By: KARIN BASSETT AOrder Number: [id number] Reading MD: Chiara Calles MeasurementsIntervals [place] Rate: 72 P: 90PR:157 QRS: 87QRSD: 105 T: 90QT: 360 QTc: 384 Interpretive StatementsSINUS RHYTHMPOSSIBLE RIGHT VENTRICULAR CONDUCTION DELAY [RSR (QR) IN V1/V2]EARLY REPOLARIZATION [ST ELEVATION WITH NORMALLY INFLECTED T- WAVE]Electronically Signed On 01-17-2022 13:02:30 CDT by Chiara DavisGregory [place] 88377022-05-26 21:23:2512 LEAD EKG FOR [facility] Test Date: 1211-34-97Xym Name: DORA MCNEILL Department: 5520Patient ID: [id number] Room: 1I67Jvsnbd: M 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1970 Requested By: KARIN BASSETT AOrder Number: [id number] Reading : Chiara Calles MeasurementsIntervals [place] Rate: 72 P: 90PR: 157 QRS: 87QRSD: 105 T: 90QT: 360 QTc: 384 Interpretive StatementsSINUS RHYTHMPOSSIBLE RIGHT VENTRICULAR CONDUCTION DELAY [RSR (QR) IN V1/V2]EARLY REPOLARIZATION [ST ELEVATION WITH NORMALLY INFLECTED T- WAVE]Electronically Signed On 01-17-2022 13:02:[address] [facility] [place]wareT[place] [id number] 21:23:2512 LEAD EKG FOR [facility] Test Date: 5532-99-57Byc Name: DORA MCNEILL Department: 5520Patient ID: [id number] Room: 9K64Uacgjg: M 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1970 Requested By: KARIN BASSETT AOrder Number: [id number] Reading MD: Chiara Calles MeasurementsIntervals [place] Rate: 72 P: 90PR:157 QRS: 87QRSD: 105 T: 90QT: 360 QTc: 384 Interpretive StatementsSINUS RHYTHMPOSSIBLE RIGHT VENTRICULAR CONDUCTION DELAY [RSR (QR) IN V1/V2]EARLY REPOLARIZATION [ST ELEVATION WITH NORMALLY INFLECTED T- WAVE]Electronically Signed On 01-17-2022 13:02:[address] [facility] [place] [id number] 21:23:2512 LEAD EKG FOR [facility] Test Date: 6550-79-18Wsb Name: DORA MCNEILL Department: 5520Patient ID: [id number] Room: 5Q85Ygczvw: M 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1970 Requested By: KARIN BASSETT AOrder Number: [id number] Reading MD: Chiara Calles MeasurementsIntervals [place] Rate: 72 P: 90PR: 157 QRS: 87QRSD: 105 T: 90QT: 360 QTc: 384 Interpretive StatementsSINUS RHYTHMPOSSIBLE RIGHT VENTRICULAR CONDUCTION DELAY [RSR (QR) IN V1/V2]EARLY REPOLARIZATION [ST ELEVATION WITH NORMALLY INFLECTED T- WAVE]Electronically Signed On 01-17-2022 13:02:[address] [facility] [place] [id number] 21:23:2512 LEAD EKG FOR [facility] Test Date: 7316-48-97Bxd Name: DORA MCNEILL Department: 5520Patient ID: [id number] Room: 9B37Igvfqn: M 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1970 Requested By: KARIN BASSETT AOrder Number: [id number] Reading MD: Chiara Calles MeasurementsIntervals [place] Rate: 72 P: 90PR: 157 QRS: 87QRSD: 105 T: 90QT: 360 QTc: 384 Interpretive StatementsSINUS RHYTHMPOSSIBLE RIGHT VENTRICULAR CONDUCTION DELAY [RSR (QR) IN V1/V2]EARLY REPOLARIZATION [ST ELEVATION WITH NORMALLY INFLECTED T- WAVE]Electronically Signed On 01-17-2022 13:02:30 CDT by Chiara [place] [id number] 21:23:2512 LEAD EKG FOR [facility] Test Date: 6670-74-55Nsb Name: DORA MCNEILL Department: 5520Patient ID: [id number] Room: 9B21Wxqyqa: M 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1970 Requested By: JESSICA AOrder Number: [id number] Reading MD: Chiara Calles MeasurementsIntervals [place] Rate: 72 P: 90PR:157 QRS: 87QRSD: 105 T: 90QT: 360 QTc: 384 Interpretive StatementsSINUS RHYTHMPOSSIBLE RIGHT VENTRICULAR CONDUCTION DELAY [RSR (QR) IN V1/V2]EARLY REPOLARIZATION [ST ELEVATION WITH NORMALLY INFLECTED T- WAVE]Electronically Signed On 01-17-2022 13:02:30 CDT by [facility] TripwareCapital Medical CenterXzpnljGQW6457-55-88 21:23:2512 LEAD EKG FOR [facility] Test Date: 5287-50-38Zpo Name: DORA PAEZRY Department: 5520Patient ID: [id number] Room: 3F83Telfkw: M 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1970 Requested By: KARIN BASSETT AOrder Number: [id number] Reading MD: Chiara Calles MeasurementsIntervals [place] Rate: 72 P: 90PR: 157 QRS: 87QRSD: 105 T: 90QT: 360 QTc: 384 Interpretive StatementsSINUS RHYTHMPOSSIBLE RIGHT VENTRICULAR CONDUCTION DELAY [RSR (QR) IN V1/V2]EARLY REPOLARIZATION [ST ELEVATION WITH NORMALLY INFLECTEDT- WAVE]Electronically Signed On 01-17-2022 13:02:[address] [facility] [place] [id number] 21:23:2512 LEAD EKG FOR [facility] Test Date: 5360-88-32Fas Name: DORA MCNEILL Department: 5520Patient ID: [id number] Room: 5Q42Rkjxzy: M 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1970 Requested By: KARIN BASSETT AOrder Number: [id number] Reading MD: Chiara Calles MeasurementsIntervals [place] Rate: 72 P: 90PR:157 QRS: 87QRSD: 105 T: 90QT: 360 QTc: 384 Interpretive StatementsSINUS RHYTHMPOSSIBLE RIGHT VENTRICULAR CONDUCTION DELAY [RSR (QR) IN V1/V2]EARLY REPOLARIZATION [ST ELEVATION WITH NORMALLY INFLECTED T- WAVE]Electronically Signed On 01-17-2022 13:02:30 CDT by Verinvest CorporationEKG2022-05-26 21:23:2512 LEAD EKG FOR [facility] Test Date: 4667-23-33Ujz Name: DORA PAEZRY Department: 5520Patient ID: [id number] Room: 9B23Uzagft: M 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1970 Requested By: KARIN BASSETT AOrder Number: [id number] Reading MD: Chiara Calles MeasurementsIntervals [place] Rate: 72 P: 90PR:157 QRS: 87QRSD: 105 T: 90QT: 360 QTc: 384 Interpretive StatementsSINUS RHYTHMPOSSIBLE RIGHT VENTRICULAR CONDUCTION DELAY [RSR (QR) IN V1/V2]EARLY REPOLARIZATION [ST ELEVATION WITH NORMALLY INFLECTED T- WAVE]Electronically Signed On 01-17-2022 13:02:30 CDT by BuzzDashBaptist Health Extended Care HospitalDNN CorpEdqjrgEOE5077-03-37 21:23:2512 LEAD EKG FOR [facility] Test Date: 7336-42-59Wbd Name: DORA MCNEILL Department: 5520Patient ID: [id number] Room: 7H26Xqzwcl: M 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1970 Requested By: KARIN BASSETT AOrder Number: [id number] Reading MD: Chiara Calles MeasurementsIntervals [place] Rate: 72 P: 90PR:157 QRS: 87QRSD: 105 T: 90QT: 360 QTc: 384 Interpretive StatementsSINUS RHYTHMPOSSIBLE RIGHT VENTRICULAR CONDUCTION DELAY [RSR (QR) IN V1/V2]EARLY REPOLARIZATION [ST ELEVATION WITH NORMALLY INFLECTED T- WAVE]Electronically Signed On 01-17-2022 13:02:[address] [facility] [place]wareT[place] [id number] 21:23:2512 LEAD EKG FOR [facility] Test Date: 7170-73-37Ywn Name: DORA MCNEILL Department: 5520Patient ID: [id number] Room: 1R86Hipmlk: M 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1970 Requested By: KARIN BASSETT AOrder Number: [id number] Reading MD: Chiara Calles MeasurementsIntervals [place] Rate: 72 P: 90PR:157 QRS: 87QRSD: 105 T: 90QT: 360 QTc: 384 Interpretive StatementsSINUS RHYTHMPOSSIBLE RIGHT VENTRICULAR CONDUCTION DELAY [RSR (QR) IN V1/V2]EARLY REPOLARIZATION [ST ELEVATION WITH NORMALLY INFLECTED T- WAVE]Electronically Signed On 01-17-2022 13:02:30 CDT by [facility] [place]wareT[place] [id number] 21:23:2512 LEAD EKG FOR [facility] Test Date: 5651-39-52Chd Name: DORA MCNEILL Department: 5520Patient ID: [id number] Room: 8M91Jvsngd: M 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1970 Requested By: KARIN BASSETT AOrder Number: [id number] Reading MD: Chiara Calles MeasurementsIntervals [place] Rate: 72 P: 90PR: 157 QRS: 87QRSD: 105 T: 90QT: 360 QTc: 384 Interpretive StatementsSINUS RHYTHMPOSSIBLE RIGHT VENTRICULAR CONDUCTION DELAY [RSR (QR) IN V1/V2]EARLY REPOLARIZATION [ST ELEVATION WITH NORMALLY INFLECTED T- WAVE]Electronically Signed On 01-17-2022 13:02:[address] [facility] [place] [id number] 21:23:2512 LEAD EKG FOR [facility] Test Date: 3374-04-31Jyw Name: DORA PAEZRY Department: 5520Patient ID: [id number] Room: 9E18Dlhhse: M 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1970 Requested By: KARIN BASSETT AOrder Number: [id number] Reading MD: Chiara Calles MeasurementsIntervals [place] Rate: 72 P: 90PR: 157 QRS: 87QRSD: 105 T: 90QT: 360 QTc: 384 Interpretive StatementsSINUS RHYTHMPOSSIBLE RIGHT VENTRICULAR CONDUCTION DELAY [RSR (QR) IN V1/V2]EARLY REPOLARIZATION [ST ELEVATION WITH NORMALLY INFLECTED T- WAVE]Electronically Signed On 01-17-2022 13:02:[address] [facility] MobilePaksGregory [place] [id number] 21:23:2512 LEAD EKG FOR [facility] Test Date: 2100-26-56Fcs Name: DORA MCNEILL Department: 5520Patient ID: [id number] Room: 5H67Jbvwrl: M 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1970 Requested By: JESSICA AOrder Number: [id number] Reading MD: Chiara Calles MeasurementsIntervals [place] Rate: 72 P: 90PR:157 QRS: 87QRSD: 105 T: 90QT: 360 QTc: 384 Interpretive StatementsSINUS RHYTHMPOSSIBLE RIGHT VENTRICULAR CONDUCTION DELAY [RSR (QR) IN V1/V2]EARLY REPOLARIZATION [ST ELEVATION WITH NORMALLY INFLECTED T- WAVE]Electronically Signed On 01-17-2022 13:02:30 CDT by [facility] HospitalLucernexTiffany Ville [id number] 21:23:2512 LEAD EKG FOR [facility] Test Date: 6311-03-44Tbc Name: DORA [place] Department: 5520Patient ID: [id number] Room: 8V96Feznmp: M 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1970 Requested By: KARIN BASSETT AOrder Number: [id number] Reading MD: Chiara Calles MeasurementsIntervals [place] Rate: 72 P: 90PR: 157 QRS: 87QRSD: 105 T: 90QT: 360 QTc: 384 Interpretive StatementsSINUS RHYTHMPOSSIBLE RIGHT VENTRICULAR CONDUCTION DELAY [RSR (QR) IN V1/V2]EARLY REPOLARIZATION [ST ELEVATION WITH NORMALLY INFLECTED T-W AVE]Electronically Signed On 01-17-2022 13:02:[address] [facility] HospitalG[facility]-26 21:23:2512 LEAD EKG FOR [facility] Test Date: 0337-33-30Kxb Name: DORA MCNEILL Department: 5520Patient ID: [id number] Room: 2Q39Piyxrr: M 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1970 Requested By: KARIN BASSETT AOrder Number: [id number] Reading MD: Chiara Calles MeasurementsIntervals [place] Rate: 72 P: 90PR:157 QRS: 87QRSD: 105 T: 90QT: 360 QTc: 384 Interpretive StatementsSINUS RHYTHMPOSSIBLE RIGHT VENTRICULAR CONDUCTION DELAY [RSR (QR) IN V1/V2]EARLY REPOLARIZATION [ST ELEVATION WITH NORMALLY INFLECTED T- WAVE]Electronically Signed On 01-17-2022 13:02:[address] [facility] TripwareCapital Medical CenterNndexaRUR6357-85-54 21:23:2512 LEAD EKG FOR [facility] Test Date: 1429-98-60Quo Name: DORA MCNEILL Department: 5520Patient ID: [id number] Room: 0S55Giultj: M 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1970 Requested By: KARIN BASSETT AOrder Number: [id number] Reading MD: Chiara Calles MeasurementsIntervals [place] Rate: 72 P: 90PR:157 QRS: 87QRSD: 105 T: 90QT: 360 QTc: 384 Interpretive StatementsSINUS RHYTHMPOSSIBLE RIGHT VENTRICULAR CONDUCTION DELAY [RSR (QR) IN V1/V2]EARLY REPOLARIZATION [ST ELEVATION WITH NORMALLY INFLECTED T- WAVE]Electronically Signed On 01-17-2022 13:02:30 CDT by [facility] CenterMon[facility] HospitalTiffany V[facility] [id number] 21:23:2512 LEAD EKG FOR [facility] Test Date: 3822-52-33Ctu Name: DORA MCNEILL Department: 5520Patient ID: [id number] Room: 3A38Wnfydh: M 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1970 Requested By: KARIN BASSETT AOrder Number: [id number] Reading MD: Chiara Calles MeasurementsIntervals [place] Rate: 72 P: 90PR:157 QRS: 87QRSD: 105 T: 90QT: 360 QTc: 384 Interpretive StatementsSINUS RHYTHMPOSSIBLE RIGHT VENTRICULAR CONDUCTION DELAY [RSR (QR) IN V1/V2]EARLY REPOLARIZATION [ST ELEVATION WITH NORMALLY INFLECTED T- WAVE]Electronically Signed On 01-17-2022 13:02:[address] [facility] TripwareCapital Medical CenterYzphotLTB1936-90-11 21:23:2512 LEAD EKG FOR [facility] Test Date: 5228-58-16Xiq Name: DORA PAEZRY Department: 5520Patient ID: [id number] Room: 7M55Wktbmx: M 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1970 Requested By: KARIN BASSETT AOrder Number: [id number] Reading MD: Chiara Calles MeasurementsIntervals [place] Rate: 72 P: 90PR:157 QRS: 87QRSD: 105 T: 90QT: 360 QTc: 384 Interpretive StatementsSINUS RHYTHMPOSSIBLE RIGHT VENTRICULAR CONDUCTION DELAY [RSR (QR) IN V1/V2]EARLY REPOLARIZATION [ST ELEVATION WITH NORMALLY INFLECTED T- WAVE]Electronically Signed On 01-17-2022 13:02:[address] 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 TripwareCapital Medical CenterUuvtcyCFE8407-16-89 21:23:2512 LEAD EKG FOR [facility] Test Date: 2025-23-22Xpm Name: DORA MCNEILL Department: 5520Patient ID: [id number] Room: 0E24Lldblp: M 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1970 Requested By: KARIN BASSETT AOrder Number: [id number] Reading MD: Chiara Calles MeasurementsIntervals [place] Rate: 72 P: 90PR:157 QRS: 87QRSD: 105 T: 90QT: 360 QTc: 384 Interpretive StatementsSINUS RHYTHMPOSSIBLE RIGHT VENTRICULAR CONDUCTION DELAY [RSR (QR) IN V1/V2]EARLY REPOLARIZATION [ST ELEVATION WITH NORMALLY INFLECTED T- WAVE]Electronically Signed On 01-17-2022 13:02:30 CDT by [facility] HospitalLucernexTiffany Ville [id number] 21:23:2512 LEAD EKG FOR [facility] Test Date: 2876-54-93Pek Name: DORA MCNEILL Department: 5520Patient ID: [id number] Room: 3G11Okrslz: M 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1970 Requested By: KARIN BASSETT AOrder Number: [id number] Reading MD: Chiara Calles MeasurementsIntervals [place] Rate: 72 P: 90PR: 157 QRS: 87QRSD: 105 T: 90QT: 360 QTc: 384 Interpretive StatementsSINUS RHYTHMPOSSIBLE RIGHT VENTRICULAR CONDUCTION DELAY [RSR (QR) IN V1/V2]EARLY REPOLARIZATION [ST ELEVATION WITH NORMALLY INFLECTED T- WAVE]Electronically Signed On 01-17-2022 13:02:30 CDT by [facility] TripwareCapital Medical [id number] 21:23:2512 LEAD EKG FOR [facility] Test Date: [id number] Name: DORA MCNEILL Department: [id number] ID: [id number] Room: 6R70Jzwlry: M 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1970 Requested By: KARIN BASSETT AOrder Number: [id number] Reading MD: Chiara Calles MeasurementsIntervals [place] Rate: 72 P: 90PR: 157 QRS: 87QRSD: 105 T: 90QT: 360 QTc: 384 Interpretive StatementsSINUS RHYTHMPOSSIBLE RIGHT VENTRICULAR CONDUCTION DELAY [RSR (QR) IN V1/V2]EARLY REPOLARIZATION [ST ELEVATION WITH NORMALLY INFLECTED T- WAVE]Electronically Signed On 01-17-2022 13:02:30 CDT by [facility]-CoV[facility]2 ORF1ab Resp Ql OLENA+[id number] 19:57:49 Test Item Value Reference Range Interpretation Comments Hospitalized? (test No code = 60198-4) ICU? (test code = No 23510-4) Symptomatic as No defined by CDC? (test code = 11379-0) Employed in No Healthcare? (test code = 07551-4) Resident in a No congregate care setting (including nursing homes, residential care for people with intellectual and developmental disabilities, psychiatric treatment facilities, group homes, board and care homes, homeless prison, foster care or other): (test code = 22341-9) SARS-CoV-2 ORF1ab NOT DETECTED Not Detected INTERPRETA TION: No Resp Ql OLENA+probe detectable levels of (test code = SARS-CoV-2 92359-4) Coronavirus (COVID-19) were present in this patient's [...] SARS-CoV-2 mole cular diagnostic assa y utilizes Acid Mixer Mediated Amplification ( TMA) technology to r apidly detect the SARS -CoV-2 (COVID-19) viru s from respiratory adriana ples. In accordance with\\XC2A0\\the FDA's guidance docume nt "Policy for Diagnostic Test s for Coronavirus Disease-2019 [facility] the Public Heal Emergency", amalia s test was developed, and its performance characteristics were verified by the [facility] molecular diagn ostics laboratory and is authorized for clinical diagno stic use. \\XC2A0\\Amalia s laboratory is certified under the Clinical Labora tory Improvement Amendments (CLI A) as qualified to pe the [facility] high complexity clinical labora tory testing. [facility] CREATININE POC docked [id number] 13:57:55 Test Item Value Reference Range Interpretation Comments Creatinine POC (test 2.4 mg/dL 0.6-1.3 H Physici an Notified code = 33501455) eGFR (test code = 30 See_Comment L [Automate d message] 19776675) The system [employer] generated this result transmit dain reference range : >=90 mL/min/1.7 3 m2. The reference r meredith was not used to interpret this result as normal/abnormal . eGFR If Am (test 35 See_Comment L [A utomated message] code = 35979927) The system which generated this result transmit dain reference range : >=90 mL/min/1.7 3 m2. The reference r meredith was not used to interpret this result as normal/abnormal . Lab Interpretation (test Abnormal code = 13965-9) [facility] CREATININE POC docked [id number] 13:57:55 Test Item Value Reference Range Interpretation Comments Creatinine POC (test 2.4 mg/dL 0.6-1.3 H Physici an Notified code = 96402359) eGFR (test code = 30 See_Comment L [Automate d message] 14359218) The system [employer] generated this result transmit dain reference range : >=90 mL/min/1.7 3 m2. The reference r meredith was not used to interpret this result as normal/abnormal . eGFR If Am (test 35 See_Comment L [A utomated message] code = 02206820) The system which generated this result transmit dain reference range : >=90 mL/min/1.7 3 m2. The reference r meredith was not used to interpret this result as normal/abnormal . Lab Interpretation (test Abnormal code = 95191-0) [facility] CREATININE POC docked [id number] 13:57:55 Test Item Value Reference Range Interpretation Comments Creatinine POC (test 2.4 mg/dL 0.6-1.3 H Physici an Notified code = 37562661) eGFR (test code = 30 See_Comment L [Automate d message] 99740920) The system [employer] generated this result transmit dain reference range : >=90 mL/min/1.7 3 m2. The reference r meredith was not used to interpret this result as normal/abnormal . eGFR If Am (test 35 See_Comment L [A utomated message] code = 98271431) The system which generated this result transmit dain reference range : >=90 mL/min/1.7 3 m2. The reference r meredith was not used to interpret this result as normal/abnormal . Lab Interpretation (test Abnormal code = 21025-9) [facility] CREATININE POC docked [id number] 13:57:55 Test Item Value Reference Range Interpretation Comments Creatinine POC (test 2.4 mg/dL 0.6-1.3 H Physici an Notified code = 31425383) eGFR (test code = 30 See_Comment L [Automate d message] 80271307) The system [employer] generated this result transmit dain reference range : >=90 mL/min/1.7 3 m2. The reference r meredith was not used to interpret this result as normal/abnormal . eGFR If Am (test 35 See_Comment L [A utomated message] code = 27899033) The system which generated this result transmit dain reference range : >=90 mL/min/1.7 3 m2. The reference r meredith was not used to interpret this result as normal/abnormal . Lab Interpretation (test Abnormal code = 99380-5) [facility] CREATININE POC docked [id number] 13:57:55 Test Item Value Reference Range Interpretation Comments Creatinine POC (test 2.4 mg/dL 0.6-1.3 H Physici an Notified code = 53316742) eGFR (test code = 30 See_Comment L [Automate d message] 76537914) The system [employer] generated this result transmit dain reference range : >=90 mL/min/1.7 3 m2. The reference r meredith was not used to interpret this result as normal/abnormal . eGFR If Am (test 35 See_Comment L [A utomated message] code = 92557701) The system which generated this result transmit dain reference range : >=90 mL/min/1.7 3 m2. The reference r meredith was not used to interpret this result as normal/abnormal . Lab Interpretation (test Abnormal code = 45038-8) [facility] [id number] 13:57:55 Test Item Value Reference Range Interpretation Comments Creatinine POC (test 2.4 mg/dL 0.6-1.3 H Physici an Notified code = 67122033) eGFR (test code = 30 See_Comment L [Automate d message] 32175268) The system [employer] generated this result transmit dain reference range : >=90 mL/min/1.7 3 m2. The reference r meredith was not used to interpret this result as normal/abnormal . eGFR If Am (test 35 See_Comment L [A utomated message] code = 23871720) The system which generated this result transmit dain reference range : >=90 mL/min/1.7 3 m2. The reference r meredith was not used to interpret this result as normal/abnormal . Lab Interpretation (test Abnormal code = 15787-7) [facility] CREATININE POC docked [id number] 13:57:55 Test Item Value Reference Range Interpretation Comments Creatinine POC (test 2.4 mg/dL 0.6-1.3 H Physici an Notified code = 07793531) eGFR If non- Am 30 See_Comment L [Aut omated message] (test code = 80976816) The s ystem which generated this result transmit dain reference range : >=90 mL/min/1.7 3 m2. The reference r meredith was not used to interpret this result as normal/abnormal . eGFR If Am (test 35 See_Comment L [A utomated message] code = 82618642) The system which generated this result transmit dain reference range : >=90 mL/min/1.7 3 m2. The reference r meredith was not used to interpret this result as normal/abnormal . Lab Interpretation (test Abnormal code = 99080-0) [facility] [id number] 13:57:55 Test Item Value Reference Range Interpretation Comments Creatinine POC (test 2.4 mg/dL 0.6-1.3 H Physici an Notified code = 90582318) eGFR If non- Am 30 See_Comment L [Aut omated message] (test code = 07901764) The s ystem which generated this result transmit dain reference range : >=90 mL/min/1.7 3 m2. The reference r meredith was not used to interpret this result as normal/abnormal . eGFR If Am (test 35 See_Comment L [A utomated message] code = 76806883) The system which generated this result transmit dain reference range : >=90 mL/min/1.7 3 m2. The reference r meredith was not used to interpret this result as normal/abnormal . Lab Interpretation (test Abnormal code = 16555-4) [facility] CREATININE POC docked [id number] 13:57:55 Test Item Value Reference Range Interpretation Comments Creatinine POC (test 2.4 mg/dL 0.6-1.3 H Physici an Notified code = 24787806) eGFR If non- Am 30 See_Comment L [Aut omated message] (test code = 95684886) The s ystem which generated this result transmit dain reference range : >=90 mL/min/1.7 3 m2. The reference r meredith was not used to interpret this result as normal/abnormal . eGFR If Am (test 35 See_Comment L [A utomated message] code = 19421305) The system which generated this result transmit dain reference range : >=90 mL/min/1.7 3 m2. The reference r meredith was not used to interpret this result as normal/abnormal . Lab Interpretation (test Abnormal code = 70715-1) [facility] CREATININE POC docked [id number] 13:57:55 Test Item Value Reference Range Interpretation Comments Creatinine POC (test 2.4 mg/dL 0.6-1.3 H Physici an Notified code = 87303567) eGFR If non- Am 30 See_Comment L [Aut omated message] (test code = 13921554) The s ystem which generated this result transmit dain reference range : >=90 mL/min/1.7 3 m2. The reference r meredith was not used to interpret this result as normal/abnormal . eGFR If Am (test 35 See_Comment L [A utomated message] code = 62039900) The system which generated this result transmit dain reference range : >=90 mL/min/1.7 3 m2. The reference r meredith was not used to interpret this result as normal/abnormal . Lab Interpretation (test Abnormal code = 18094-7) [facility] [id number] 13:57:55 Test Item Value Reference Range Interpretation Comments Creatinine POC (test 2.4 mg/dL 0.6-1.3 H Physici an Notified code = 58735575) eGFR If non- Am 30 See_Comment L [Aut omated message] (test code = 77082004) The s ystem which generated this result transmit dain reference range : >=90 mL/min/1.7 3 m2. The reference r meredith was not used to interpret this result as normal/abnormal . eGFR If Am (test 35 See_Comment L [A utomated message] code = 69298866) The system which generated this result transmit dain reference range : >=90 mL/min/1.7 3 m2. The reference r meredith was not used to interpret this result as normal/abnormal . Lab Interpretation (test Abnormal code = 63417-3) [facility] CREATININE POC docked [id number] 13:57:55 Test Item Value Reference Range Interpretation Comments Creatinine POC (test 2.4 mg/dL 0.6-1.3 H Physici an Notified code = 60520190) eGFR If non- Am 30 See_Comment L [Aut omated message] (test code = 05502200) The s ystem which generated this result transmit dain reference range : >=90 mL/min/1.7 3 m2. The reference r meredith was not used to interpret this result as normal/abnormal . eGFR If Am (test 35 See_Comment L [A utomated message] code = 01832244) The system which generated this result transmit dain reference range : >=90 mL/min/1.7 3 m2. The reference r meredith was not used to interpret this result as normal/abnormal . Lab Interpretation (test Abnormal code = 40888-1) [facility] [id number] 13:57:55 Test Item Value Reference Range Interpretation Comments Creatinine POC (test 2.4 mg/dL 0.6-1.3 H Physici an Notified code = 69815161) eGFR If non- Am 30 See_Comment L [Aut omated message] (test code = 17170521) The s ystem which generated this result transmit dain reference range : >=90 mL/min/1.7 3 m2. The reference r meredith was not used to interpret this result as normal/abnormal . eGFR If Am (test 35 See_Comment L [A utomated message] code = 32003752) The system which generated this result transmit dain reference range : >=90 mL/min/1.7 3 m2. The reference r meredith was not used to interpret this result as normal/abnormal . Lab Interpretation (test Abnormal code = 68226-7) [facility] CREATININE POC docked [id number] 13:57:55 Test Item Value Reference Range Interpretation Comments Creatinine POC (test 2.4 mg/dL 0.6-1.3 H Physici an Notified code = 13680704) eGFR If non- Am 30 See_Comment L [Aut omated message] (test code = 43017837) The s ystem which generated this result transmit dain reference range : >=90 mL/min/1.7 3 m2. The reference r meredith was not used to interpret this result as normal/abnormal . eGFR If Am (test 35 See_Comment L [A utomated message] code = 32575904) The system which generated this result transmit dain reference range : >=90 mL/min/1.7 3 m2. The reference r meredith was not used to interpret this result as normal/abnormal . Lab Interpretation (test Abnormal code = 64745-9) [facility] CREATININE POC docked [id number] 13:57:55 Test Item Value Reference Range Interpretation Comments Creatinine POC (test 2.4 mg/dL 0.6-1.3 H Physici an Notified code = 51344902) eGFR If non- Am 30 See_Comment L [Aut omated message] (test code = 47396600) The s ystem which generated this result transmit dain reference range : >=90 mL/min/1.7 3 m2. The reference r meredith was not used to interpret this result as normal/abnormal . eGFR If Am (test 35 See_Comment L [A utomated message] code = 41057702) The system which generated this result transmit dain reference range : >=90 mL/min/1.7 3 m2. The reference r meredith was not used to interpret this result as normal/abnormal . Lab Interpretation (test Abnormal code = 49269-7) [facility] CREATININE POC docked [id number] 13:57:55 Test Item Value Reference Range Interpretation Comments Creatinine POC (test 2.4 mg/dL 0.6-1.3 H Physici an Notified code = 49800499) eGFR If non- Am 30 See_Comment L [Aut omated message] (test code = 06426379) The s ystem which generated this result transmit dain reference range : >=90 mL/min/1.7 3 m2. The reference r meredith was not used to interpret this result as normal/abnormal . eGFR If Am (test 35 See_Comment L [A utomated message] code = 38056029) The system which generated this result transmit dain reference range : >=90 mL/min/1.7 3 m2. The reference r meredith was not used to interpret this result as normal/abnormal . Lab Interpretation (test Abnormal code = 35757-4) [facility] CREATININE POC docked [id number] 13:57:55 Test Item Value Reference Range Interpretation Comments Creatinine POC (test 2.4 mg/dL 0.6-1.3 H Physici an Notified code = 40568482) eGFR If non- Am 30 See_Comment L [Aut omated message] (test code = 17154390) The s ystem which generated this result transmit dain reference range : >=90 mL/min/1.7 3 m2. The reference r meredith was not used to interpret this result as normal/abnormal . eGFR If Am (test 35 See_Comment L [A utomated message] code = 16119328) The system which generated this result transmit dain reference range : >=90 mL/min/1.7 3 m2. The reference r meredith was not used to interpret this result as normal/abnormal . Lab Interpretation (test Abnormal code = 07426-3) [facility] CREATININE POC docked [id number] 13:57:55 Test Item Value Reference Range Interpretation Comments Creatinine POC (test 2.4 mg/dL 0.6-1.3 H Physici an Notified code = 99276565) eGFR If non- Am 30 See_Comment L [Aut omated message] (test code = 32937608) The s ystem which generated this result transmit dain reference range : >=90 mL/min/1.7 3 m2. The reference r meredith was not used to interpret this result as normal/abnormal . eGFR If Am (test 35 See_Comment L [A utomated message] code = 26259252) The system which generated this result transmit dain reference range : >=90 mL/min/1.7 3 m2. The reference r meredith was not used to interpret this result as normal/abnormal . Lab Interpretation (test Abnormal code = 80804-8) [facility] CREATININE POC docked [id number] 13:57:55 Test Item Value Reference Range Interpretation Comments Creatinine POC (test 2.4 mg/dL 0.6-1.3 H Physici an Notified code = 63065882) eGFR If non- Am 30 See_Comment L [Aut omated message] (test code = 89248307) The s ystem which generated this result transmit dain reference range : >=90 mL/min/1.7 3 m2. The reference r meredith was not used to interpret this result as normal/abnormal . eGFR If Am (test 35 See_Comment L [A utomated message] code = 71592912) The system which generated this result transmit dain reference range : >=90 mL/min/1.7 3 m2. The reference r meredith was not used to interpret this result as normal/abnormal . Lab Interpretation (test Abnormal code = 44321-1) [facility] CREATININE POC docked [id number] 13:57:55 Test Item Value Reference Range Interpretation Comments Creatinine POC (test 2.4 mg/dL 0.6-1.3 H Physici an Notified code = 39442449) eGFR If non- Am 30 See_Comment L [Aut omated message] (test code = 95845669) The s ystem which generated this result transmit dain reference range : >=90 mL/min/1.7 3 m2. The reference r meredith was not used to interpret this result as normal/abnormal . eGFR If Am (test 35 See_Comment L [A utomated message] code = 83950249) The system which generated this result transmit dain reference range : >=90 mL/min/1.7 3 m2. The reference r meredith was not used to interpret this result as normal/abnormal . Lab Interpretation (test Abnormal code = 70772-0) [facility] CREATININE POC docked [id number] 13:57:55 Test Item Value Reference Range Interpretation Comments Creatinine POC (test 2.4 mg/dL 0.6-1.3 H Physici an Notified code = 69459365) eGFR If non- Am 30 See_Comment L [Aut omated message] (test code = 47254309) The s ystem which generated this result transmit dain reference range : >=90 mL/min/1.7 3 m2. The reference r meredith was not used to interpret this result as normal/abnormal . eGFR If Am (test 35 See_Comment L [A utomated message] code = 04402741) The system which generated this result transmit dain reference range : >=90 mL/min/1.7 3 m2. The reference r meredith was not used to interpret this result as normal/abnormal . Lab Interpretation (test Abnormal code = 46964-3) [facility] CREATININE POC docked [id number] 13:57:55 Test Item Value Reference Range Interpretation Comments Creatinine POC (test 2.4 mg/dL 0.6-1.3 H Physici an Notified code = 21877193) eGFR (test code = 30 See_Comment L [Automate d message] 21185544) The system [employer] generated this result transmit dain reference range : >=90 mL/min/1.7 3 m2. The reference r meredith was not used to interpret this result as normal/abnormal . eGFR If Am (test 35 See_Comment L [A utomated message] code = 55483038) The system which generated this result transmit dain reference range : >=90 mL/min/1.7 3 m2. The reference r meredith was not used to interpret this result as normal/abnormal . Lab Interpretation (test Abnormal code = 07508-7) [facility] CREATININE POC docked [id number] 13:57:55 Test Item Value Reference Range Interpretation Comments Creatinine POC (test 2.4 mg/dL 0.6-1.3 H Physici an Notified code = 65390627) eGFR (test code = 30 See_Comment L [Automate d message] 42712424) The system whic h generated this result transmit dain reference range : >=90 mL/min/1.7 3 m2. The reference r meredith was not used to interpret this result as normal/abnormal . eGFR If Am (test 35 See_Comment L [A utomated message] code = 35188172) The system which generated this result transmit dain reference range : >=90 mL/min/1.7 3 m2. The reference r meredith was not used to interpret this result as normal/abnormal . Lab Interpretation (test Abnormal code = 32028-5) [facility] POC docked [id number] 13:48:46 Test Item Value Reference Range Interpretation Comments Sodium POC (test code = 126 mmol/L 136-145 L 68378762) Potassium POC (test code 4.4 mmol/L 3.5-5.1 = 89278468) Chloride POC (test code 100 mmol/L 98-107 = 48927441) TCO2 POC (test code = 17 mmol/L 21-32 L Physic aylin Notified 26579022) Urea Nitrogen POC (test 36 mg/dL 7-18 H code = 22240864) Glucose POC (test code = 114 mg/dL 74-106 H 94495862) Hemoglobin POC (test 11.9 g/dL 12-16 L code = 91887275) Hematocrit POC (test 35.0 % 37.0-47.0 L code = 63008916) Lab Interpretation (test Abnormal code = 42653-2) [facility] POC docked [id number] 13:48:46 Test Item Value Reference Range Interpretation Comments Sodium POC (test code = 126 mmol/L 136-145 L 20379463) Potassium POC (test code 4.4 mmol/L 3.5-5.1 = 35846687) Chloride POC (test code 100 mmol/L 98-107 = 96587659) TCO2 POC (test code = 17 mmol/L 21-32 L Physic aylin Notified 01834772) Urea Nitrogen POC (test 36 mg/dL 7-18 H code = 62496682) Glucose POC (test code = 114 mg/dL 74-106 H 25583326) Hemoglobin POC (test 11.9 g/dL 12-16 L code = 48860940) Hematocrit POC (test 35.0 % 37.0-47.0 L code = 32977242) Lab Interpretation (test Abnormal code = 41399-7) [facility] POC docked [id number] 13:48:46 Test Item Value Reference Range Interpretation Comments Sodium POC (test code = 126 mmol/L 136-145 L 93631494) Potassium POC (test code 4.4 mmol/L 3.5-5.1 = 54204805) Chloride POC (test code 100 mmol/L 98-107 = 55274382) TCO2 POC (test code = 17 mmol/L 21-32 L Physic aylin Notified 83143015) Urea Nitrogen POC (test 36 mg/dL 7-18 H code = 43781235) Glucose POC (test code = 114 mg/dL 74-106 H 21579330) Hemoglobin POC (test 11.9 g/dL 12-16 L code = 02868469) Hematocrit POC (test 35.0 % 37.0-47.0 L code = 52926277) Lab Interpretation (test Abnormal code = 41270-3) [facility] POC docked [id number] 13:48:46 Test Item Value Reference Range Interpretation Comments Sodium POC (test code = 126 mmol/L 136-145 L 13858429) Potassium POC (test code 4.4 mmol/L 3.5-5.1 = 38967005) Chloride POC (test code 100 mmol/L 98-107 = 44689664) TCO2 POC (test code = 17 mmol/L 21-32 L Physic aylin Notified 61245694) Urea Nitrogen POC (test 36 mg/dL 7-18 H code = 90867949) Glucose POC (test code = 114 mg/dL 74-106 H 53496394) Hemoglobin POC (test 11.9 g/dL 12-16 L code = 85131250) Hematocrit POC (test 35.0 % 37.0-47.0 L code = 36951960) Lab Interpretation (test Abnormal code = 60886-2) [facility] POC docked [id number] 13:48:46 Test Item Value Reference Range Interpretation Comments Sodium POC (test code = 126 mmol/L 136-145 L 16615647) Potassium POC (test code 4.4 mmol/L 3.5-5.1 = 39715457) Chloride POC (test code 100 mmol/L 98-107 = 60946110) TCO2 POC (test code = 17 mmol/L 21-32 L Physic aylin Notified 09654908) Urea Nitrogen POC (test 36 mg/dL 7-18 H code = 04210048) Glucose POC (test code = 114 mg/dL 74-106 H 60545008) Hemoglobin POC (test 11.9 g/dL 12-16 L code = 24870753) Hematocrit POC (test 35.0 % 37.0-47.0 L code = 13472657) Lab Interpretation (test Abnormal code = 58002-9) [facility] POC docked [id number] 13:48:46 Test Item Value Reference Range Interpretation Comments Sodium POC (test code = 126 mmol/L 136-145 L 68248573) Potassium POC (test code 4.4 mmol/L 3.5-5.1 = 99500727) Chloride POC (test code 100 mmol/L 98-107 = 95103010) TCO2 POC (test code = 17 mmol/L 21-32 L Physic aylin Notified 82807826) Urea Nitrogen POC (test 36 mg/dL 7-18 H code = 32678368) Glucose POC (test code = 114 mg/dL 74-106 H 52225744) Hemoglobin POC (test 11.9 g/dL 12-16 L code = 82764024) Hematocrit POC (test 35.0 % 37.0-47.0 L code = 63644215) Lab Interpretation (test Abnormal code = 74457-8) [facility] POC docked [id number] 13:48:46 Test Item Value Reference Range Interpretation Comments Sodium POC (test code = 126 mmol/L 136-145 L 74480947) Potassium POC (test code 4.4 mmol/L 3.5-5.1 = 09518839) Chloride POC (test code 100 mmol/L 98-107 = 86856189) TCO2 POC (test code = 17 mmol/L 21-32 L Physic aylin Notified 70762741) Urea Nitrogen POC (test 36 mg/dL 7-18 H code = 17034096) Glucose POC (test code = 114 mg/dL 74-106 H 61615487) Hemoglobin POC (test 11.9 g/dL 12-16 L code = 16996347) Hematocrit POC (test 35.0 % 37.0-47.0 L code = 59425411) Lab Interpretation (test Abnormal code = 17700-3) [facility] POC docked [id number] 13:48:46 Test Item Value Reference Range Interpretation Comments Sodium POC (test code = 126 mmol/L 136-145 L 98862582) Potassium POC (test code 4.4 mmol/L 3.5-5.1 = 25022382) Chloride POC (test code 100 mmol/L 98-107 = 77078802) TCO2 POC (test code = 17 mmol/L 21-32 L Physic aylin Notified 66357181) Urea Nitrogen POC (test 36 mg/dL 7-18 H code = 10959022) Glucose POC (test code = 114 mg/dL 74-106 H 36065095) Hemoglobin POC (test 11.9 g/dL 12-16 L code = 55238717) Hematocrit POC (test 35.0 % 37.0-47.0 L code = 94457110) Lab Interpretation (test Abnormal code = 29552-3) [facility] POC docked [id number] 13:48:46 Test Item Value Reference Range Interpretation Comments Sodium POC (test code = 126 mmol/L 136-145 L 89869093) Potassium POC (test code 4.4 mmol/L 3.5-5.1 = 27929934) Chloride POC (test code 100 mmol/L 98-107 = 29527141) TCO2 POC (test code = 17 mmol/L 21-32 L Physic aylin Notified 43568051) Urea Nitrogen POC (test 36 mg/dL 7-18 H code = 93586388) Glucose POC (test code = 114 mg/dL 74-106 H 38175563) Hemoglobin POC (test 11.9 g/dL 12-16 L code = 81455299) Hematocrit POC (test 35.0 % 37.0-47.0 L code = 63919260) Lab Interpretation (test Abnormal code = 84434-6) [facility] POC docked [id number] 13:48:46 Test Item Value Reference Range Interpretation Comments Sodium POC (test code = 126 mmol/L 136-145 L 05884750) Potassium POC (test code 4.4 mmol/L 3.5-5.1 = 19199431) Chloride POC (test code 100 mmol/L 98-107 = 80623733) TCO2 POC (test code = 17 mmol/L 21-32 L Physic aylin Notified 71264508) Urea Nitrogen POC (test 36 mg/dL 7-18 H code = 08440250) Glucose POC (test code = 114 mg/dL 74-106 H 55428757) Hemoglobin POC (test 11.9 g/dL 12-16 L code = 62130699) Hematocrit POC (test 35.0 % 37.0-47.0 L code = 82761322) Lab Interpretation (test Abnormal code = 86483-6) [facility] POC docked [id number] 13:48:46 Test Item Value Reference Range Interpretation Comments Sodium POC (test code = 126 mmol/L 136-145 L 34564307) Potassium POC (test code 4.4 mmol/L 3.5-5.1 = 97861860) Chloride POC (test code 100 mmol/L 98-107 = 38101272) TCO2 POC (test code = 17 mmol/L 21-32 L Physic aylin Notified 35000264) Urea Nitrogen POC (test 36 mg/dL 7-18 H code = 94964546) Glucose POC (test code = 114 mg/dL 74-106 H 56940334) Hemoglobin POC (test 11.9 g/dL 12-16 L code = 09505187) Hematocrit POC (test 35.0 % 37.0-47.0 L code = 00233344) Lab Interpretation (test Abnormal code = 17255-2) [facility] POC docked [id number] 13:48:46 Test Item Value Reference Range Interpretation Comments Sodium POC (test code = 126 mmol/L 136-145 L 87675926) Potassium POC (test code 4.4 mmol/L 3.5-5.1 = 20681931) Chloride POC (test code 100 mmol/L 98-107 = 90193270) TCO2 POC (test code = 17 mmol/L 21-32 L Physic aylin Notified 28519076) Urea Nitrogen POC (test 36 mg/dL 7-18 H code = 29424648) Glucose POC (test code = 114 mg/dL 74-106 H 46995674) Hemoglobin POC (test 11.9 g/dL 12-16 L code = 91674464) Hematocrit POC (test 35.0 % 37.0-47.0 L code = 10317463) Lab Interpretation (test Abnormal code = 53161-6) [facility] POC docked [id number] 13:48:46 Test Item Value Reference Range Interpretation Comments Sodium POC (test code = 126 mmol/L 136-145 L 91466787) Potassium POC (test code 4.4 mmol/L 3.5-5.1 = 23940887) Chloride POC (test code 100 mmol/L 98-107 = 01475421) TCO2 POC (test code = 17 mmol/L 21-32 L Physic aylin Notified 21495742) Urea Nitrogen POC (test 36 mg/dL 7-18 H code = 12632687) Glucose POC (test code = 114 mg/dL 74-106 H 25002836) Hemoglobin POC (test 11.9 g/dL 12-16 L code = 23997265) Hematocrit POC (test 35.0 % 37.0-47.0 L code = 30199056) Lab Interpretation (test Abnormal code = 94563-5) [facility] POC docked [id number] 13:48:46 Test Item Value Reference Range Interpretation Comments Sodium POC (test code = 126 mmol/L 136-145 L 78192659) Potassium POC (test code 4.4 mmol/L 3.5-5.1 = 26490488) Chloride POC (test code 100 mmol/L 98-107 = 68130310) TCO2 POC (test code = 17 mmol/L 21-32 L Physic aylin Notified 54550427) Urea Nitrogen POC (test 36 mg/dL 7-18 H code = 50841117) Glucose POC (test code = 114 mg/dL 74-106 H 67065444) Hemoglobin POC (test 11.9 g/dL 12-16 L code = 51976092) Hematocrit POC (test 35.0 % 37.0-47.0 L code = 30201460) Lab Interpretation (test Abnormal code = 02826-3) [facility] POC docked [id number] 13:48:46 Test Item Value Reference Range Interpretation Comments Sodium POC (test code = 126 mmol/L 136-145 L 49739552) Potassium POC (test code 4.4 mmol/L 3.5-5.1 = 45851768) Chloride POC (test code 100 mmol/L 98-107 = 41648508) TCO2 POC (test code = 17 mmol/L 21-32 L Physic aylin Notified 74347623) Urea Nitrogen POC (test 36 mg/dL 7-18 H code = 40405957) Glucose POC (test code = 114 mg/dL 74-106 H 23796875) Hemoglobin POC (test 11.9 g/dL 12-16 L code = 09181343) Hematocrit POC (test 35.0 % 37.0-47.0 L code = 29067507) Lab Interpretation (test Abnormal code = 68564-8) [facility] POC docked [id number] 13:48:46 Test Item Value Reference Range Interpretation Comments Sodium POC (test code = 126 mmol/L 136-145 L 07842682) Potassium POC (test code 4.4 mmol/L 3.5-5.1 = 40319611) Chloride POC (test code 100 mmol/L 98-107 = 25769937) TCO2 POC (test code = 17 mmol/L 21-32 L Physic aylin Notified 09496155) Urea Nitrogen POC (test 36 mg/dL 7-18 H code = 67572797) Glucose POC (test code = 114 mg/dL 74-106 H 22034909) Hemoglobin POC (test 11.9 g/dL 12-16 L code = 31323643) Hematocrit POC (test 35.0 % 37.0-47.0 L code = 02191398) Lab Interpretation (test Abnormal code = 39230-9) [facility] POC docked [id number] 13:48:46 Test Item Value Reference Range Interpretation Comments Sodium POC (test code = 126 mmol/L 136-145 L 35815013) Potassium POC (test code 4.4 mmol/L 3.5-5.1 = 31189494) Chloride POC (test code 100 mmol/L 98-107 = 68427317) TCO2 POC (test code = 17 mmol/L 21-32 L Physic aylin Notified 82731397) Urea Nitrogen POC (test 36 mg/dL 7-18 H code = 32568337) Glucose POC (test code = 114 mg/dL 74-106 H 88454811) Hemoglobin POC (test 11.9 g/dL 12-16 L code = 45123511) Hematocrit POC (test 35.0 % 37.0-47.0 L code = 21299308) Lab Interpretation (test Abnormal code = 35391-4) [facility] POC docked [id number] 13:48:46 Test Item Value Reference Range Interpretation Comments Sodium POC (test code = 126 mmol/L 136-145 L 93234378) Potassium POC (test code 4.4 mmol/L 3.5-5.1 = 34321431) Chloride POC (test code 100 mmol/L 98-107 = 36989934) TCO2 POC (test code = 17 mmol/L 21-32 L Physic aylin Notified 94467586) Urea Nitrogen POC (test 36 mg/dL 7-18 H code = 74318856) Glucose POC (test code = 114 mg/dL 74-106 H 78288798) Hemoglobin POC (test 11.9 g/dL 12-16 L code = 41264095) Hematocrit POC (test 35.0 % 37.0-47.0 L code = 48778364) Lab Interpretation (test Abnormal code = 53331-5) [facility] POC docked [id number] 13:48:46 Test Item Value Reference Range Interpretation Comments Sodium POC (test code = 126 mmol/L 136-145 L 93579838) Potassium POC (test code 4.4 mmol/L 3.5-5.1 = 97818177) Chloride POC (test code 100 mmol/L 98-107 = 06307817) TCO2 POC (test code = 17 mmol/L 21-32 L Physic aylni Notified 47632304) Urea Nitrogen POC (test 36 mg/dL 7-18 H code = 97693472) Glucose POC (test code = 114 mg/dL 74-106 H 72973573) Hemoglobin POC (test 11.9 g/dL 12-16 L code = 45064658) Hematocrit POC (test 35.0 % 37.0-47.0 L code = 14503979) Lab Interpretation (test Abnormal code = 25622-8) [facility] POC docked [id number] 13:48:46 Test Item Value Reference Range Interpretation Comments Sodium POC (test code = 126 mmol/L 136-145 L 33843814) Potassium POC (test code 4.4 mmol/L 3.5-5.1 = 29744928) Chloride POC (test code 100 mmol/L 98-107 = 14117772) TCO2 POC (test code = 17 mmol/L 21-32 L Physic aylin Notified 78319553) Urea Nitrogen POC (test 36 mg/dL 7-18 H code = 34196481) Glucose POC (test code = 114 mg/dL 74-106 H 50206375) Hemoglobin POC (test 11.9 g/dL 12-16 L code = 75404542) Hematocrit POC (test 35.0 % 37.0-47.0 L code = 37097673) Lab Interpretation (test Abnormal code = 64117-4) [facility] POC docked [id number] 13:48:46 Test Item Value Reference Range Interpretation Comments Sodium POC (test code = 126 mmol/L 136-145 L 79298774) Potassium POC (test code 4.4 mmol/L 3.5-5.1 = 14409374) Chloride POC (test code 100 mmol/L 98-107 = 85039802) TCO2 POC (test code = 17 mmol/L 21-32 L Physic aylin Notified 52306930) Urea Nitrogen POC (test 36 mg/dL 7-18 H code = 76199728) Glucose POC (test code = 114 mg/dL 74-106 H 64651787) Hemoglobin POC (test 11.9 g/dL 12-16 L code = 96509083) Hematocrit POC (test 35.0 % 37.0-47.0 L code = 85716814) Lab Interpretation (test Abnormal code = 95978-8) [facility] POC docked [id number] 13:48:46 Test Item Value Reference Range Interpretation Comments Sodium POC (test code = 126 mmol/L 136-145 L 55243827) Potassium POC (test code 4.4 mmol/L 3.5-5.1 = 22057796) Chloride POC (test code 100 mmol/L 98-107 = 72075618) TCO2 POC (test code = 17 mmol/L 21-32 L Physic aylin Notified 50917697) Urea Nitrogen POC (test 36 mg/dL 7-18 H code = 05678175) Glucose POC (test code = 114 mg/dL 74-106 H 74152559) Hemoglobin POC (test 11.9 g/dL 12-16 L code = 81429551) Hematocrit POC (test 35.0 % 37.0-47.0 L code = 29484948) Lab Interpretation (test Abnormal code = 41225-3) [facility] POC docked [id number] 13:48:46 Test Item Value Reference Range Interpretation Comments Sodium POC (test code = 126 mmol/L 136-145 L 73071093) Potassium POC (test code 4.4 mmol/L 3.5-5.1 = 17319317) Chloride POC (test code 100 mmol/L 98-107 = 02785480) TCO2 POC (test code = 17 mmol/L 21-32 L Physic aylin Notified 49723765) Urea Nitrogen POC (test 36 mg/dL 7-18 H code = 10229178) Glucose POC (test code = 114 mg/dL 74-106 H 27362471) Hemoglobin POC (test 11.9 g/dL 12-16 L code = 94518347) Hematocrit POC (test 35.0 % 37.0-47.0 L code = 42396991) Lab Interpretation (test Abnormal code = 77491-8) [facility]-CoV-2 ORF1ab Resp Ql OLENA+[id number] 20:25:16 Test Item Value Reference Range Interpretation Comments Hospitalized? (test No code = 00341-0) ICU? (test code = No 62714-5) Symptomatic as No defined by CDC? (test code = 50814-6) Employed in No Healthcare? (test code = 85519-5) Resident in a No congregate care setting (including nursing homes, residential care for people with intellectual and developmental disabilities, psychiatric treatment facilities, group homes, board and care homes, homeless prison, foster care or other): (test code = 92529-8) SARS-CoV-2 ORF1ab NOT DETECTED Not Detected INTERPRETA TION: No Resp Ql OLENA+probe detectable levels of (test code = SARS-CoV-2 62607-4) Coronavirus (COVID-19) were present in this patient's [...] SARS-CoV-2 mole cular diagnostic assa y utilizes Acid Mixer Mediated Amplification ( TMA) technology to r apidly detect the SARS -CoV-2 (COVID-19) viru s from respiratory adriana ples. In accordance with\\XC2A0\\the FDA's guidance docume nt "Policy for Diagnostic Test s for Coronavirus Disease-2019 [facility] the Public Heal th Emergency", amalia s test was developed, and its performance characteristics were verified by the [facility] molecular diagn ostics laboratory and is authorized for clinical diagno stic use. \\XC2A0\\Thi s laboratory is certified under the Clinical Labora tory Improvement Amendments (CLI A) as qualified to pe rform high complexity clinical labora tory testing. [facility] POC docked [id number] 11:16:15 Test Item Value Reference Range Interpretation Comments pH, Pankaj POC (test code 7.32 7.33-7.43 L = 20486509) pCO2,Pankaj POC (test code 31.0 See_Comment L [Au tomated = 34483679) message] The sy stem which generated this result transmitted reference range : 38 - 50 mmHg. The reference range was not used to interpret this result as normal/abnormal . PO2, Venous POC (BKR) 44 See_Comment L [Auto mated (test code = 27910215) [employer]] The system which generated this result transmitted reference range : 50 - 75 mm Hg. The reference range was not used to interpret this result as normal/abnormal . Ionized Calcium POC 1.24 mmol/L 1.15-1.29 (test code = 15405540) HCO3, Pankaj POC (test 16 mmol/L 22-26 L code = 60326363) TCO2 POC (test code = 17 mmol/L 21-32 L 81737259) Base Deficit, Pankaj POC -9 (test code = 12620647) Sample Type (test code IVEN Physi erik Notified = 78826150) % Sat, Pankaj POC (test 77 % code = 12642910) Lab Interpretation Abnormal (test code = 46914-3) [facility] POC docked [id number] 11:16:15 Test Item Value Reference Range Interpretation Comments pH, Pankaj POC (test code 7.32 7.33-7.43 L = 36426708) pCO2,Pankaj POC (test code 31.0 See_Comment L [Au tomated = 47783661) message] The sy stem which generated this result transmitted reference range : 38 - 50 mmHg. The reference range was not used to interpret this result as normal/abnormal . PO2, Venous POC (BKR) 44 See_Comment L [Auto mated (test code = 91427174) [employer]] The system which generated this result transmitted reference range : 50 - 75 mm Hg. The reference range was not used to interpret this result as normal/abnormal . Ionized Calcium POC 1.24 mmol/L 1.15-1.29 (test code = 02424463) HCO3, Pankaj POC (test 16 mmol/L 22-26 L code = 50539700) TCO2 POC (test code = 17 mmol/L 21-32 L 75737633) Base Deficit, Pankaj POC -9 (test code = 77392628) Sample Type (test code IVEN Physi erik Notified = 90231004) % Sat, Pankaj POC (test 77 % code = 71943354) Lab Interpretation Abnormal (test code = 31643-9) [facility] POC docked [id number] 11:16:15 Test Item Value Reference Range Interpretation Comments pH, Pankaj POC (test code 7.32 7.33-7.43 L = 08366611) pCO2,Pankaj POC (test code 31.0 See_Comment L [Au tomated = 42587354) message] The sy stem which generated this result transmitted reference range : 38 - 50 mmHg. The reference range was not used to interpret this result as normal/abnormal . PO2, Venous POC (BKR) 44 See_Comment L [Auto mated (test code = 68319986) [employer] ge] The system which generated this result transmitted reference range : 50 - 75 mm Hg. The reference range was not used to interpret this result as normal/abnormal . Ionized Calcium POC 1.24 mmol/L 1.15-1.29 (test code = 95975204) HCO3, Pankaj POC (test 16 mmol/L 22-26 L code = 66092456) TCO2 POC (test code = 17 mmol/L 21-32 L 04859408) Base Deficit, Pankaj POC -9 (test code = 68363414) Sample Type (test code IVEN Physi erik Notified = 90540805) % Sat, Pankaj POC (test 77 % code = 98407049) Lab Interpretation Abnormal (test code = 74211-7) [facility] POC docked [id number] 11:16:15 Test Item Value Reference Range Interpretation Comments pH, Pankaj POC (test code 7.32 7.33-7.43 L = 18921236) pCO2,Pankaj POC (test code 31.0 See_Comment L [Au tomated = 96533652) message] The sy stem which generated this result transmitted reference range : 38 - 50 mmHg. The reference range was not used to interpret this result as normal/abnormal . PO2, Venous POC (BKR) 44 See_Comment L [Auto mated (test code = 17755680) messa ge] The system which generated this result transmitted reference range : 50 - 75 mm Hg. The reference range was not used to interpret this result as normal/abnormal . Ionized Calcium POC 1.24 mmol/L 1.15-1.29 (test code = 58668137) HCO3, Pankaj POC (test 16 mmol/L 22-26 L code = 76093659) TCO2 POC (test code = 17 mmol/L 21-32 L 53667045) Base Deficit, Pankaj POC -9 (test code = 10093089) Sample Type (test code STEPAN Physi erik Notified = 99983517) % Sat, Pankaj POC (test 77 % code = 13961196) Lab Interpretation Abnormal (test code = 41654-4) [facility] POC docked [id number] 11:16:15 Test Item Value Reference Range Interpretation Comments pH, Pankaj POC (test code 7.32 7.33-7.43 L = 92688881) pCO2,Pankaj POC (test code 31.0 See_Comment L [Au tomated = 59889640) message] The sy stem which generated this result transmitted reference range : 38 - 50 mmHg. The reference range was not used to interpret this result as normal/abnormal . PO2, Venous POC (BKR) 44 See_Comment L [Auto mated (test code = 73193626) messa ge] The system which generated this result transmitted reference range : 50 - 75 mm Hg. The reference range was not used to interpret this result as normal/abnormal . Ionized Calcium POC 1.24 mmol/L 1.15-1.29 (test code = 53468485) HCO3, Pankaj POC (test 16 mmol/L 22-26 L code = 73321069) TCO2 POC (test code = 17 mmol/L 21-32 L 33346500) Base Deficit, Pankaj POC -9 (test code = 02352335) Sample Type (test code STEPAN valencia Notified = 96574772) % Sat, Pankaj POC (test 77 % code = 65871466) Lab Interpretation Abnormal (test code = 48424-7) [facility] POC docked [id number] 11:16:15 Test Item Value Reference Range Interpretation Comments pH, Pankaj POC (test code 7.32 7.33-7.43 L = 06010850) pCO2,Pankaj POC (test code 31.0 See_Comment L [Au tomated = 22883186) message] The sy stem which generated this result transmitted reference range : 38 - 50 mmHg. The reference range was not used to interpret this result as normal/abnormal . PO2, Venous POC (BKR) 44 See_Comment L [Auto mated (test code = 23487185) messa ge] The system which generated this result transmitted reference range : 50 - 75 mm Hg. The reference range was not used to interpret this result as normal/abnormal . Ionized Calcium POC 1.24 mmol/L 1.15-1.29 (test code = 30840429) HCO3, Pankaj POC (test 16 mmol/L 22-26 L code = 52167031) TCO2 POC (test code = 17 mmol/L 21-32 L 63677300) Base Deficit, Pankaj POC -9 (test code = 02886659) Sample Type (test code IVJESSICA Physi erik Notified = 19181105) % Sat, Pankaj POC (test 77 % code = 45394285) Lab Interpretation Abnormal (test code = 10159-2) [facility] POC docked [id number] 11:16:15 Test Item Value Reference Range Interpretation Comments pH, Pankaj POC (test code 7.32 7.33-7.43 L = 05276863) pCO2,Pankaj POC (test code 31.0 See_Comment L [Au tomated = 52805416) message] The sy stem which generated this result transmitted reference range : 38 - 50 mmHg. The reference range was not used to interpret this result as normal/abnormal . PO2, Venous POC (BKR) 44 See_Comment L [Auto mated (test code = 72861790) [employer]] The system which generated this result transmitted reference range : 50 - 75 mm Hg. The reference range was not used to interpret this result as normal/abnormal . Ionized Calcium POC 1.24 mmol/L 1.15-1.29 (test code = 72854507) HCO3, Pankaj POC (test 16 mmol/L 22-26 L code = 24628476) TCO2 POC (test code = 17 mmol/L 21-32 L 18497845) Base Deficit, Pankaj POC -9 (test code = 31645644) Sample Type (test code IVJESSICA Physi erik Notified = 41088747) % Sat, Pankaj POC (test 77 % code = 82334100) Lab Interpretation Abnormal (test code = 42415-2) [facility] POC docked [id number] 11:16:15 Test Item Value Reference Range Interpretation Comments pH, Pankaj POC (test code 7.32 7.33-7.43 L = 96504287) pCO2,Pankaj POC (test code 31.0 See_Comment L [Au tomated = 07867706) message] The sy stem which generated this result transmitted reference range : 38 - 50 mmHg. The reference range was not used to interpret this result as normal/abnormal . PO2, Venous POC (BKR) 44 See_Comment L [Auto mated (test code = 86790201) [employer]] The system which generated this result transmitted reference range : 50 - 75 mm Hg. The reference range was not used to interpret this result as normal/abnormal . Ionized Calcium POC 1.24 mmol/L 1.15-1.29 (test code = 85580959) HCO3, Pankaj POC (test 16 mmol/L 22-26 L code = 98432175) TCO2 POC (test code = 17 mmol/L 21-32 L 49186554) Base Deficit, Pankaj POC -9 (test code = 41964827) Sample Type (test code IVEN Physi erik Notified = 00113603) % Sat, Pankaj POC (test 77 % code = 21658667) Lab Interpretation Abnormal (test code = 93044-3) [facility] POC docked [id number] 11:16:15 Test Item Value Reference Range Interpretation Comments pH, Pankaj POC (test code 7.32 7.33-7.43 L = 90178329) pCO2,Pankaj POC (test code 31.0 See_Comment L [Au tomated = 41518504) message] The sy stem which generated this result transmitted reference range : 38 - 50 mmHg. The reference range was not used to interpret this result as normal/abnormal . PO2, Venous POC (BKR) 44 See_Comment L [Auto mated (test code = 23592684) [employer]] The system which generated this result transmitted reference range : 50 - 75 mm Hg. The reference range was not used to interpret this result as normal/abnormal . Ionized Calcium POC 1.24 mmol/L 1.15-1.29 (test code = 31632626) HCO3, Pankaj POC (test 16 mmol/L 22-26 L code = 97229137) TCO2 POC (test code = 17 mmol/L 21-32 L 33189413) Base Deficit, Pankaj POC -9 (test code = 00886142) Sample Type (test code IVEN Physi erik Notified = 88203529) % Sat, Pankaj POC (test 77 % code = 27571653) Lab Interpretation Abnormal (test code = 25478-2) [facility] POC docked [id number] 11:16:15 Test Item Value Reference Range Interpretation Comments pH, Pankaj POC (test code 7.32 7.33-7.43 L = 99812845) pCO2,Pankaj POC (test code 31.0 See_Comment L [Au tomated = 73776263) message] The sy stem which generated this result transmitted reference range : 38 - 50 mmHg. The reference range was not used to interpret this result as normal/abnormal . PO2, Venous POC (BKR) 44 See_Comment L [Auto mated (test code = 67685231) [employer]] The system which generated this result transmitted reference range : 50 - 75 mm Hg. The reference range was not used to interpret this result as normal/abnormal . Ionized Calcium POC 1.24 mmol/L 1.15-1.29 (test code = 88761773) HCO3, Pankaj POC (test 16 mmol/L 22-26 L code = 36564537) TCO2 POC (test code = 17 mmol/L 21-32 L 51191349) Base Deficit, Pankaj POC -9 (test code = 69916056) Sample Type (test code STEPAN Physi erik Notified = 78901901) % Sat, Pankaj POC (test 77 % code = 74646899) Lab Interpretation Abnormal (test code = 58695-3) [facility] POC docked [id number] 11:16:15 Test Item Value Reference Range Interpretation Comments pH, Pankaj POC (test code 7.32 7.33-7.43 L = 92853603) pCO2,Pankaj POC (test code 31.0 See_Comment L [Au tomated = 44747087) message] The sy stem which generated this result transmitted reference range : 38 - 50 mmHg. The reference range was not used to interpret this result as normal/abnormal . PO2, Venous POC (BKR) 44 See_Comment L [Auto mated (test code = 55788898) [employer]] The system which generated this result transmitted reference range : 50 - 75 mm Hg. The reference range was not used to interpret this result as normal/abnormal . Ionized Calcium POC 1.24 mmol/L 1.15-1.29 (test code = 61094160) HCO3, Pankaj POC (test 16 mmol/L 22-26 L code = 15124092) TCO2 POC (test code = 17 mmol/L 21-32 L 25254678) Base Deficit, Pankaj POC -9 (test code = 09256475) Sample Type (test code STEPAN Physi erik Notified = 88044204) % Sat, Pankaj POC (test 77 % code = 99085156) Lab Interpretation Abnormal (test code = 76302-8) [facility] POC docked [id number] 11:16:15 Test Item Value Reference Range Interpretation Comments pH, Pankaj POC (test code 7.32 7.33-7.43 L = 06933167) pCO2,Pankaj POC (test code 31.0 See_Comment L [Au tomated = 64670019) message] The sy stem which generated this result transmitted reference range : 38 - 50 mmHg. The reference range was not used to interpret this result as normal/abnormal . PO2, Venous POC (BKR) 44 See_Comment L [Auto mated (test code = 18966687) messa ge] The system which generated this result transmitted reference range : 50 - 75 mm Hg. The reference range was not used to interpret this result as normal/abnormal . Ionized Calcium POC 1.24 mmol/L 1.15-1.29 (test code = 72580569) HCO3, Pankaj POC (test 16 mmol/L 22-26 L code = 38868677) TCO2 POC (test code = 17 mmol/L 21-32 L 34955809) Base Deficit, Pankaj POC -9 (test code = 13998816) Sample Type (test code STEPAN Physi erik Notified = 72221529) % Sat, Pankaj POC (test 77 % code = 14063810) Lab Interpretation Abnormal (test code = 34662-2) [facility] POC docked [id number] 11:16:15 Test Item Value Reference Range Interpretation Comments pH, Pankaj POC (test code 7.32 7.33-7.43 L = 97433619) pCO2,Pankaj POC (test code 31.0 See_Comment L [Au tomated = 64488407) message] The sy stem which generated this result transmitted reference range : 38 - 50 mmHg. The reference range was not used to interpret this result as normal/abnormal . PO2, Venous POC (BKR) 44 See_Comment L [Auto mated (test code = 03432780) messa ge] The system which generated this result transmitted reference range : 50 - 75 mm Hg. The reference range was not used to interpret this result as normal/abnormal . Ionized Calcium POC 1.24 mmol/L 1.15-1.29 (test code = 60223766) HCO3, Pankaj POC (test 16 mmol/L 22-26 L code = 37105435) TCO2 POC (test code = 17 mmol/L 21-32 L 45003060) Base Deficit, Pankaj POC -9 (test code = 74524641) Sample Type (test code IVJESSICA Physi erik Notified = 12630461) % Sat, Pankaj POC (test 77 % code = 24102549) Lab Interpretation Abnormal (test code = 74928-6) [facility] VBG POC docked [id number] 11:16:15 Test Item Value Reference Range Interpretation Comments pH, Pankaj POC (test code 7.32 7.33-7.43 L = 60463382) pCO2,Pankaj POC (test code 31.0 See_Comment L [Au tomated = 16449749) message] The sy stem which generated this result transmitted reference range : 38 - 50 mmHg. The reference range was not used to interpret this result as normal/abnormal . PO2, Venous POC (BKR) 44 See_Comment L [Auto mated (test code = 67220730) [employer]] The system which generated this result transmitted reference range : 50 - 75 mm Hg. The reference range was not used to interpret this result as normal/abnormal . Ionized Calcium POC 1.24 mmol/L 1.15-1.29 (test code = 86109395) HCO3, Pankaj POC (test 16 mmol/L 22-26 L code = 51365195) TCO2 POC (test code = 17 mmol/L 21-32 L 13354324) Base Deficit, Pankaj POC -9 (test code = 77124830) Sample Type (test code IVEN Physi erik Notified = 06796851) % Sat, Pankaj POC (test 77 % code = 39679631) Lab Interpretation Abnormal (test code = 22402-6) [facility] VBG POC docked [id number] 11:16:15 Test Item Value Reference Range Interpretation Comments pH, Pankaj POC (test code 7.32 7.33-7.43 L = 03469643) pCO2,Pankaj POC (test code 31.0 See_Comment L [Au tomated = 10452403) message] The sy stem which generated this result transmitted reference range : 38 - 50 mmHg. The reference range was not used to interpret this result as normal/abnormal . PO2, Venous POC (BKR) 44 See_Comment L [Auto mated (test code = 55949910) [employer]] The system which generated this result transmitted reference range : 50 - 75 mm Hg. The reference range was not used to interpret this result as normal/abnormal . Ionized Calcium POC 1.24 mmol/L 1.15-1.29 (test code = 77191281) HCO3, Pankaj POC (test 16 mmol/L 22-26 L code = 03658329) TCO2 POC (test code = 17 mmol/L 21-32 L 75216424) Base Deficit, Pankaj POC -9 (test code = 11056145) Sample Type (test code IVEN Physi erik Notified = 89620299) % Sat, Pankaj POC (test 77 % code = 39777486) Lab Interpretation Abnormal (test code = 74081-8) [facility] VBG POC docked [id number] 11:16:15 Test Item Value Reference Range Interpretation Comments pH, Paknaj POC (test code 7.32 7.33-7.43 L = 45804154) pCO2,Pankaj POC (test code 31.0 See_Comment L [Au tomated = 03577389) message] The sy stem which generated this result transmitted reference range : 38 - 50 mmHg. The reference range was not used to interpret this result as normal/abnormal . PO2, Venous POC (BKR) 44 See_Comment L [Auto mated (test code = 38320410) messa ge] The system which generated this result transmitted reference range : 50 - 75 mm Hg. The reference range was not used to interpret this result as normal/abnormal . Ionized Calcium POC 1.24 mmol/L 1.15-1.29 (test code = 34716437) HCO3, Pankaj POC (test 16 mmol/L 22-26 L code = 46677946) TCO2 POC (test code = 17 mmol/L 21-32 L 05923886) Base Deficit, Pankaj POC -9 (test code = 99618511) Sample Type (test code IVEN Physi erik Notified = 10058972) % Sat, Pankaj POC (test 77 % code = 96312586) Lab Interpretation Abnormal (test code = 72026-4) [facility] VBG POC docked [id number] 11:16:15 Test Item Value Reference Range Interpretation Comments pH, Pankaj POC (test code 7.32 7.33-7.43 L = 43430745) pCO2,Pankaj POC (test code 31.0 See_Comment L [Au tomated = 72229811) message] The sy stem which generated this result transmitted reference range : 38 - 50 mmHg. The reference range was not used to interpret this result as normal/abnormal . PO2, Venous POC (BKR) 44 See_Comment L [Auto mated (test code = 82094623) messa ge] The system which generated this result transmitted reference range : 50 - 75 mm Hg. The reference range was not used to interpret this result as normal/abnormal . Ionized Calcium POC 1.24 mmol/L 1.15-1.29 (test code = 16263505) HCO3, Pankaj POC (test 16 mmol/L 22-26 L code = 39025276) TCO2 POC (test code = 17 mmol/L 21-32 L 53800782) Base Deficit, Pankaj POC -9 (test code = 95622399) Sample Type (test code STEPAN Moeller cian Notified = 21756872) % Sat, Pankaj POC (test 77 % code = 01984036) Lab Interpretation Abnormal (test code = 77421-0) [facility] VB POC docked [id number] 11:16:15 Test Item Value Reference Range Interpretation Comments pH, Pankaj POC (test code 7.32 7.33-7.43 L = 02981266) pCO2,Pankaj POC (test code 31.0 See_Comment L [Au tomated = 99904230) message] The sy stem which generated this result transmitted reference range : 38 - 50 mmHg. The reference range was not used to interpret this result as normal/abnormal . PO2, Venous POC (BKR) 44 See_Comment L [Auto mated (test code = 45799855) messa ge] The system which generated this result transmitted reference range : 50 - 75 mm Hg. The reference range was not used to interpret this result as normal/abnormal . Ionized Calcium POC 1.24 mmol/L 1.15-1.29 (test code = 19425325) HCO3, Pankaj POC (test 16 mmol/L 22-26 L code = 80074489) TCO2 POC (test code = 17 mmol/L 21-32 L 22403563) Base Deficit, Pankaj POC -9 (test code = 21279632) Sample Type (test code STEPAN Physi erik Notified = 30842020) % Sat, Pankaj POC (test 77 % code = 94272390) Lab Interpretation Abnormal (test code = 37811-5) [facility] VBG POC docked [id number] 11:16:15 Test Item Value Reference Range Interpretation Comments pH, Pankaj POC (test code 7.32 7.33-7.43 L = 37034444) pCO2,Pankaj POC (test code 31.0 See_Comment L [Au tomated = 70808886) message] The sy stem which generated this result transmitted reference range : 38 - 50 mmHg. The reference range was not used to interpret this result as normal/abnormal . PO2, Venous POC (BKR) 44 See_Comment L [Auto mated (test code = 82972498) [employer] ge] The system which generated this result transmitted reference range : 50 - 75 mm Hg. The reference range was not used to interpret this result as normal/abnormal . Ionized Calcium POC 1.24 mmol/L 1.15-1.29 (test code = 52572872) HCO3, Pankaj POC (test 16 mmol/L 22-26 L code = 15096117) TCO2 POC (test code = 17 mmol/L 21-32 L 21805857) Base Deficit, Pankaj POC -9 (test code = 25852160) Sample Type (test code STEPAN Physi erik Notified = 28958901) % Sat, Pankaj POC (test 77 % code = 18189259) Lab Interpretation Abnormal (test code = 14878-5) [facility] VBG POC docked [id number] 11:16:15 Test Item Value Reference Range Interpretation Comments pH, Pankaj POC (test code 7.32 7.33-7.43 L = 46323066) pCO2,Pankaj POC (test code 31.0 See_Comment L [Au tomated = 34695288) message] The sy stem which generated this result transmitted reference range : 38 - 50 mmHg. The reference range was not used to interpret this result as normal/abnormal . PO2, Venous POC (BKR) 44 See_Comment L [Auto mated (test code = 64869168) [employer]] The system which generated this result transmitted reference range : 50 - 75 mm Hg. The reference range was not used to interpret this result as normal/abnormal . Ionized Calcium POC 1.24 mmol/L 1.15-1.29 (test code = 57088850) HCO3, Pankaj POC (test 16 mmol/L 22-26 L code = 03507532) TCO2 POC (test code = 17 mmol/L 21-32 L 19521257) Base Deficit, Pankaj POC -9 (test code = 56130107) Sample Type (test code IVEN Physi erik Notified = 53160500) % Sat, Pankaj POC (test 77 % code = 41284454) Lab Interpretation Abnormal (test code = 24350-7) [facility] VBG POC docked [id number] 11:16:15 Test Item Value Reference Range Interpretation Comments pH, Pankaj POC (test code 7.32 7.33-7.43 L = 46151296) pCO2,Pankaj POC (test code 31.0 See_Comment L [Au tomated = 00739050) message] The sy stem which generated this result transmitted reference range : 38 - 50 mmHg. The reference range was not used to interpret this result as normal/abnormal . PO2, Venous POC (BKR) 44 See_Comment L [Auto mated (test code = 25451438) [employer]] The system which generated this result transmitted reference range : 50 - 75 mm Hg. The reference range was not used to interpret this result as normal/abnormal . Ionized Calcium POC 1.24 mmol/L 1.15-1.29 (test code = 87377028) HCO3, Pankaj POC (test 16 mmol/L 22-26 L code = 62068425) TCO2 POC (test code = 17 mmol/L 21-32 L 36953685) Base Deficit, Pankaj POC -9 (test code = 85929871) Sample Type (test code IVEN Physi erik Notified = 13737402) % Sat, Pankaj POC (test 77 % code = 69022720) Lab Interpretation Abnormal (test code = 35242-3) [facility] VBG POC docked [id number] 11:16:15 Test Item Value Reference Range Interpretation Comments pH, Pankaj POC (test code 7.32 7.33-7.43 L = 04467187) pCO2,Pankaj POC (test code 31.0 See_Comment L [Au tomated = 47940379) message] The sy stem which generated this result transmitted reference range : 38 - 50 mmHg. The reference range was not used to interpret this result as normal/abnormal . PO2, Venous POC (BKR) 44 See_Comment L [Auto mated (test code = 04991027) messa ge] The system which generated this result transmitted reference range : 50 - 75 mm Hg. The reference range was not used to interpret this result as normal/abnormal . Ionized Calcium POC 1.24 mmol/L 1.15-1.29 (test code = 28198492) HCO3, Pankaj POC (test 16 mmol/L 22-26 L code = 04985026) TCO2 POC (test code = 17 mmol/L 21-32 L 47733898) Base Deficit, Pankaj POC -9 (test code = 68139358) Sample Type (test code IVJESSICA Physi erik Notified = 19976382) % Sat, Pankaj POC (test 77 % code = 38988062) Lab Interpretation Abnormal (test code = 95105-5) [facility] VBG POC docked [id number] 11:16:15 Test Item Value Reference Range Interpretation Comments pH, Pankaj POC (test code 7.32 7.33-7.43 L = 70438443) pCO2,Pankaj POC (test code 31.0 See_Comment L [Au tomated = 75612993) message] The sy stem which generated this result transmitted reference range : 38 - 50 mmHg. The reference range was not used to interpret this result as normal/abnormal . PO2, Venous POC (BKR) 44 See_Comment L [Auto mated (test code = 37447330) messa ge] The system which generated this result transmitted reference range : 50 - 75 mm Hg. The reference range was not used to interpret this result as normal/abnormal . Ionized Calcium POC 1.24 mmol/L 1.15-1.29 (test code = 98114206) HCO3, Pankaj POC (test 16 mmol/L 22-26 L code = 66444332) TCO2 POC (test code = 17 mmol/L 21-32 L 35696419) Base Deficit, Pankaj POC -9 (test code = 63627629) Sample Type (test code STEPAN Moeller erik Notified = 32350791) % Sat, Pankaj POC (test 77 % code = 34349065) Lab Interpretation Abnormal (test code = 42460-0) [place] [address] LEAD [id number] 20:59:5612 LEAD EKG FOR [facility] Test Date: 9532-67-91Xls Name: DORA BROWNSBURG Department: 5520Patient ID: [id number] Room: Gender: M Senior Cytogenetics Laboratory Director: [id number]: 1970 Requested By: TANJA Garza Number: [id number] Reading MD: Chiara Calles MeasurementsIntervals [place] Rate: 75 P: 84PR: 153 QRS: 67QRSD: 104 T: 77QT: 344 QTc: 373 Interpretive StatementsSINUS RHYTHMPOSSIBLE RIGHT VENTRICULAR CONDUCTION DELAY [RSR (QR) IN V1/V2]Electronically Signed On 01-09-2022 8:27:19 CDT by [place]rolMark [place] [address] LEAD [id number] 20:59:5612 LEAD EKG FOR [facility] Test Date: 3569-49-45Yfd Name: DORA BROWNSBURG Department: 5520Patient ID: [id number] Room: Gender: M Senior Cytogenetics Laboratory Director: [id number]: 1970 Requested By: TANJA Garza Number: [id number] Reading MD: Chiara Calles MeasurementsIntervals [place] Rate: 75 P: 84PR: 153 QRS: 67QRSD: 104 T: 77QT: 344 QTc: 373 Interpretive StatementsSINUS RHYTHMPOSSIBLE RIGHT VENTR ICULAR CONDUCTION DELAY [RSR (QR) IN V1/V2]Electronically Signed On 01-09-2022 8:27:19 CDT by [facility] Hospitalrobert Hangfeng [employer] Equipment TechnologybakariMonroe HospitalCompaTerri [place] [address] LEAD [id number] 20:59:5612 LEAD EKG FOR [facility] Test Date: 2623-67-36Ocw Name: DORA MCNEILL Department: 5520Patient ID: [id number] Room: Gender: M Senior Cytogenetics Laboratory Director: [id number]: 1970 Requested By: TANJA Garza Number: [id number] Reading MD: Chiara Calles MeasurementsIntervals [place] Rate: 75 P: 84PR: 153 QRS: 67QRSD: 104 T: 77QT: 344 QTc: 373 Interpretive StatementsSINUS RHYTHMPOSSIBLE RIGHT VENTRICULAR CONDUCTION DELAY [RSR (QR) IN V1/V2]Electronically Signed On 01-09-2022 8:27:19 CDT by Chiara DavisMonroe HospitalCompawinslow indian [facility] Tyobmp49 LEAD [id number] 20:59:5612 LEAD EKG FOR [facility] Test Date: 6141-74-31Iho Name: DORA BROWNSBURG Department: 5520Patient ID: [id number] Room: Gender: M Senior Cytogenetics Laboratory Director: [id number]: 1970 Requested By: TANJA Garza Number: [id number] Reading MD: Chiara Calles MeasurementsIntervals [place] Rate: 75 P: 84P R: 153 QRS: 67QRSD: 104 T: 77QT: 344 QTc: 373 Interpretive StatementsSINUS RHYTHMPOSSIBLE RIGHT VENTRICULAR CONDUCTION DELAY [RSR (QR) IN V1/V2]Electronically Signed On 01-09-2022 8:27:19 CDT by eTelemetryrobert Hangfeng Ke[employer] Equipment TechnologybakariMonroe HospitalBaptist Health Extended Care HospitalDNN Corp12 LEAD [id number] 20:59:5612 LEAD EKG FOR [facility] Test Date: 4462-51-62Nsn Name: DORA BROWNSBURG Department: 5520Patient ID: [id number] Room: Gender: M Senior Cytogenetics Laboratory Director: [id number]: 1970 Requested By: TANJA Garza Number: [id number] Reading MD: Chiara Calles MeasurementsIntervals [place] Rate: 75 P: 84PR: 153 QRS: 67QRSD: 104 T: 77QT: 344 QTc: 373 Interpretive StatementsSINUS RHYTHMPOSSIBLE RIGHT VENTRICULAR CONDUCTION DELAY [RSR (QR) IN V1/V2]Electronically Signed On 01-09-2022 8:27:19 CDT by Next [email or web address] LEAD [id number] 20:59:5612 LEAD EKG FOR [facility] Test Date: 7597-12-34Tho Name: [facility] Department: 5520Patient ID: [id number] Room: Gender: M Senior Cytogenetics Laboratory Director: [id number]: 1970 Requested By: TANJA Garza Number: [id number] Reading MD: Chiara Calles MeasurementsIntervals [place] Rate: 75 P: 84PR: 153 QRS: 67QRSD: 104 T: 77QT: 344 QTc: 373 Interpretive StatementsSINUS RHYTHMPOSSIBLE RIGHT VENTR ICULAR CONDUCTION DELAY [RSR (QR) IN V1/V2]Electronically Signed On 01-09-2022 8:27:19 CDT by eTelemetryrobert [employer]12 LEAD [id number] 20:59:5612 LEAD EKG FOR [facility] Test Date: 8636-36-82Fto Name: DORA PAEZRY Department: 5520Patient ID: [id number] Room: Gender: M Senior Cytogenetics Laboratory Director: [id number]: 1970 Requested By: TANJA Garza Number: [id number] Reading MD: Chiara Calles MeasurementsIntervals [place] Rate: 75 P: 84PR: 153 QRS: 67QRSD: 104 T: 77QT: 344 QTc: 373 Interpretive StatementsSINUS RHYTHMPOSSIBLE RIGHT VENTRICULAR CONDUCTION DELAY [RSR (QR) IN V1/V2]Electronically Signed On 01-09-2022 8:27:19 CDT by [employer]12 LEAD [id number] 20:59:5612 LEAD EKG FOR [facility] Test Date: 7818-54-02Uzq Name: DORA PAEZRY Department: 5520Patient ID: [id number] Room: Gender: M Senior Cytogenetics Laboratory Director: [id number]: 1970 Requested By: TANJA Garza Number: [id number] Reading MD: Chiara Calles MeasurementsIntervals [place] Rate: 75 P: 84P R: 153 QRS: 67QRSD: 104 T: 77QT: 344 QTc: 373 Interpretive StatementsSINUS RHYTHMPOSSIBLE RIGHT VENTRICULAR CONDUCTION DELAY [RSR (QR) IN V1/V2]Electronically Signed On 01-09-2022 8:27:19 CDT by [employer]12 LEAD [id number] 20:59:5612 LEAD EKG FOR [facility] Test Date: 9917-23-18Rru Name: DORA MCNEILL Department: 5520Patient ID: [id number] Room: Gender: M Senior Cytogenetics Laboratory Director: [id number]: 1970 Requested By: TANJA Garza Number: [id number] Reading MD: Chiara Calles MeasurementsIntervals [place] Rate: 75 P: 84PR: 153 QRS: 67QRSD: 104 T: 77QT: 344 QTc: 373 Interpretive StatementsSINUS RHYTHMPOSSIBLE RIGHT VENTRICULAR CONDUCTION DELAY [RSR (QR) IN V1/V2]Electronically Signed On 01-09-2022 8:27:19 CDT by [facility] HospitalDanielaMonroe HospitalMilligan Plmnob43 LEAD [id number] 20:59:5612 LEAD EKG FOR [facility] Test Date: 3892-06-97Ihm Name: DORA PAEZRY Department: 5520Patient ID: [id number] Room: Gender: M Senior Cytogenetics Laboratory Director: [id number]: 1970 Requested By: TANJA Garza Number: [id number] Reading MD: Chiara Calles MeasurementsIntervals [place] Rate: 75 P: 84PR: 153 QRS: 67QRSD: 104 T: 77QT: 344 QTc: 373 Interpretive StatementsSINUS RHYTHMPOSSIBLE RIGHT VENTR ICULAR CONDUCTION DELAY [RSR (QR) IN V1/V2]Electronically Signed On 01-09-2022 8:27:19 CDT by Chiara DavisMonroe HospitalMark [place]ille [address] LEAD [id number] 20:59:5612 LEAD EKG FOR [facility] Test Date: 6688-48-00Tmc Name: DORA BROWNSBURG Department: 5520Patient ID: [id number] Room: Gender: M Senior Cytogenetics Laboratory Director: [id number]: 1970 Requested By: TANJA Garza Number: [id number] Reading MD: Chiara Calles MeasurementsIntervals [place] Rate: 75 P: 84PR: 153 QRS: 67QRSD: 104 T: 77QT: 344 QTc: 373 Interpretive StatementsSINUS RHYTHMPOSSIBLE RIGHT VENTRICULAR CONDUCTION DELAY [RSR (QR) IN V1/V2]Electronically Signed On 01-09-2022 8:27:19 CDT by WalrobertTripwareBaptist Health Extended Care HospitalDNN Corp12 LEAD [id number] 20:59:5612 LEAD EKG FOR [facility] Test Date: 2112-93-28Hqt Name: DORA MCNEILL Department: 5520Patient ID: [id number] Room: Gender: M Senior Cytogenetics Laboratory Director: [id number]: 1970 Requested By: TANJA Garza Number: [id number] Reading MD: Chiara Calles MeasurementsIntervals [place] Rate: 75 P: 84P R: 153 QRS: 67QRSD: 104 T: 77QT: 344 QTc: 373 Interpretive StatementsSINUS RHYTHMPOSSIBLE RIGHT VENTRICULAR CONDUCTION DELAY [RSR (QR) IN V1/V2]Electronically Signed On 01-09-2022 8:27:19 CDT by Chiara DavisMonroe HospitalBaptist Health Extended Care HospitalDNN Corp12 LEAD [id number] 20:59:5612 LEAD EKG FOR [facility] Test Date: 6183-11-15Quz Name: DORA PAEZRY Department: 5520Patient ID: [id number] Room: Gender: M Senior Cytogenetics Laboratory Director: [id number]: 1970 Requested By: TANJA Garza Number: [id number] Reading MD: Chiara Calles MeasurementsIntervals [place] Rate: 75 P: 84PR: 153 QRS: 67QRSD: 104 T: 77QT: 344 QTc: 373 Interpretive StatementsSINUS RHYTHMPOSSIBLE RIGHT VENTRICULAR CONDUCTION DELAY [RSR (QR) IN V1/V2]Electronically Signed On 01-09-2022 8:27:19 CDT by Waldistrict [facility] Hangfeng Kewei Equipment TechnologybakariMonroe HospitalBaptist Health Extended Care HospitalZkatter Yidpsl41 LEAD [id number] 20:59:5612 LEAD EKG FOR [facility] Test Date: 9714-05-37Scb Name: DORA MCNEILL Department: 5520Patient ID: [id number] Room: Gender: M Senior Cytogenetics Laboratory Director: [id number]: 1970 Requested By: TANJA Garza Number: [id number] Reading MD: Chiara Calles MeasurementsIntervals [place] Rate: 75 P: 84PR: 153 QRS: 67QRSD: 104 T: 77QT: 344 QTc: 373 Interpretive StatementsSINUS RHYTHMPOSSIBLE RIGHT VENT RICULAR CONDUCTION DELAY [RSR (QR) IN V1/V2]Electronically Signed On 01-09-2022 8:27:19 CDT by [facility] HospitalrobertALT Bioscience12 LEAD [id number] 20:59:5612 LEAD EKG FOR [facility] Test Date: 4781-22-20Qjl Name: DORA PAEZRY Department: 5520Patient ID: [id number] Room: Gender: Senior Cytogenetics Laboratory Director: [id number]: 1970 Requested By: TANJA Garza Number: [id number] Reading MD: Chiara Calles MeasurementsIntervals [place] Rate: 75 P: 84PR: 153 QRS: 67QRSD: 104 T: 77QT: 344 QTc: 373 Interpretive StatementsSINUS RHYTHMPOSSIBLE RIGHT VENTRICULAR CONDUCTION DELAY [RSR (QR) IN V1/V2]Electronically Signed On 01-09-2022 8:27:19 CDT by eTelemetryrobert Hangfeng Ke[employer] Equipment TechnologybakariMyPerfectGift.com12 LEAD [id number] 20:59:5612 LEAD EKG FOR [facility] Test Date: 2475-52-01Ort Name: DORA PAEZRY Department: 5520Patient ID: [id number] Room: Gender: Senior Cytogenetics Laboratory Director: [id number]: 1970 Requested By: TANJA Garza Number: [id number] Reading MD: Chiara Calles MeasurementsIntervals [place] Rate: 75 P: 84P R: 153 QRS: 67QRSD: 104 T: 77QT: 344 QTc: 373 Interpretive StatementsSINUS RHYTHMPOSSIBLE RIGHT VENTRICULAR CONDUCTION DELAY [RSR (QR) IN V1/V2]Electronically Signed On 01-09-2022 8:27:19 CDT by [employer]12 LEAD [id number] 20:59:5612 LEAD EKG FOR [facility] Test Date: 4739-97-81Jem Name: DORA BROWNSBURG Department: 5520Patient ID: [id number] Room: Gender: M Senior Cytogenetics Laboratory Director: [id number]: 1970 Requested By: TANJA Garza Number: [id number] Reading MD: Chiara Calles MeasurementsIntervals [place] Rate: 75 P: 84PR: 153 QRS: 67QRSD: 104 T: 77QT: 344 QTc: 373 Interpretive StatementsSINUS RHYTHMPOSSIBLE RIGHT VENTRICULAR CONDUCTION DELAY [RSR (QR) IN V1/V2]Electronically Signed On 01-09-2022 8:27:19 CDT by Chiara Hangfeng [employer] Equipment TechnologybakariMyPerfectGift.com12 LEAD [id number] 20:59:5612 LEAD EKG FOR [facility] Test Date: 9294-48-23Zub Name: DORA MCNEILL Department: 5520Patient ID: [id number] Room: Gender: M Senior Cytogenetics Laboratory Director: [id number]: 1970 Requested By: TANJA Garza Number: [id number] Reading MD: Chiara Calles MeasurementsIntervals [place] Rate: 75 P: 84PR: 153 QRS: 67QRSD: 104 T: 77QT: 344 QTc: 373 Interpretive StatementsSINUS RHYTHMPOSSIBLE RIGHT VENTRI CULAR CONDUCTION DELAY [RSR (QR) IN V1/V2]Electronically Signed On 01-09-2022 8:27:19 CDT by Chiara Hangfeng [employer] Equipment Te[email or web address] LEAD [id number] 20:59:5612 LEAD EKG FOR [facility] Test Date: 4433-91-38Dxi Name: DORA PAEZRY Department: 5520Patient ID: [id number] Room: Gender: M Senior Cytogenetics Laboratory Director: [id number]: 1970 Requested By: TANJA Garza Number: [id number] Reading MD: Chiara Calles MeasurementsIntervals [place] Rate: 75 P: 84PR: 153 QRS: 67QRSD: 104 T: 77QT: 344 QTc: 373 Interpretive StatementsSINUS RHYTHMPOSSIBLE RIGHT VENTRICULAR CONDUCTION DELAY [RSR (QR) IN V1/V2]Electronically Signed On 01-09-2022 8:27:19 CDT by eTelemetryrobertALT Bioscience12 LEAD [id number] 20:59:5612 LEAD EKG FOR [facility] Test Date: 1464-20-97Nvr Name: DORA MCNEILL Department: 5520Patient ID: [id number] Room: Gender: M Senior Cytogenetics Laboratory Director: [id number]: 1970 Requested By: TANJA Garza Number: [id number] Reading MD: Chiara Calles MeasurementsIntervals [place] Rate: 75 P: 84PR : 153 QRS: 67QRSD: 104 T: 77QT: 344 QTc: 373 Interpretive StatementsSINUS RHYTHMPOSSIBLE RIGHT VENTRICULAR CONDUCTION DELAY [RSR (QR) IN V1/V2]Electronically Signed On 01-09-2022 8:27:19 CDT by Chiara EsquedaDNN Corp12 LEAD [id number] 20:59:5612 LEAD EKG FOR [facility] Test Date: 5638-13-24Ayd Name: DORA PAEZRY Department: 5520Patient ID: [id number] Room: Gender: M Senior Cytogenetics Laboratory Director: [id number]: 1970 Requested By: TANJA Garza Number: [id number] Reading MD: Chiara Calles MeasurementsIntervals [place] Rate: 75 P: 84PR: 153 QRS: 67QRSD: 104 T: 77QT: 344 QTc: 373 Interpretive StatementsSINUS RHYTHMPOSSIBLE RIGHT VENTRICULAR CONDUCTION DELAY [RSR (QR) IN V1/V2]Electronically Signed On 01-09-2022 8:27:19 CDT by [facility] [id number] LEAD [id number] 20:59:5612 LEAD EKG FOR [facility] Test Date: 0610-15-96Cld Name: DORA PAEZRY Department: 5520Patient ID: [id number] Room: Gender: M Senior Cytogenetics Laboratory Director: [id number]: 1970 Requested By: TANJA Garza Number: [id number] Reading MD: Chiara Calles MeasurementsIntervals [place] Rate: 75 P: 84PR: 153 QRS: 67QRSD: 104 T: 77QT: 344 QTc: 373 Interpretive StatementsSINUS RHYTHMPOSSIBLE RIGHT VENTR ICULAR CONDUCTION DELAY [RSR (QR) IN V1/V2]Electronically Signed On 01-09-2022 8:27:19 CDT by [employer] [place] [address] LEAD [id number] 20:59:5612 LEAD EKG FOR [facility] Test Date: 3178-40-29Ayt Name: DORA MCNEILL Department: 5520Patient ID: [id number] Room: Gender: M Senior Cytogenetics Laboratory Director: [id number]: 1970 Requested By: TANJA Garza Number: [id number] Reading MD: Chiara Calles MeasurementsIntervals [place] Rate: 75 P: 84PR: 153 QRS: 67QRSD: 104 T: 77QT: 344 QTc: 373 Interpretive StatementsSINUS RHYTHMPOSSIBLE RIGHT VENTRICULAR CONDUCTION DELAY [RSR (QR) IN V1/V2]Electronically Signed On 01-09-2022 8:27:19 CDT by [employer] [facility] W/AUTO [id number] 23:52:00 Test Item Value Reference Range Interpretation [...] = MX#) 0.8 k/mm3 0.1-0.8 N LIVER [id number] 20:04:00 Test Item Value Reference Range Interpretation Comments TOTAL PROTEIN (test code 6.7 GM/DL 5.0-8.0 N Per formed by = PROT) 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 [facility] ed [facility] ALBUMIN (test code = [...] 67 UNITS/L 25-125 N TAWNY) BASIC METABOLIC [id number] 19:54:00 Test Item Value Reference Range Interpretation [...] POCGLU) 81 MG/DL - CT ABD PELVIS W/[id number] 00:00:00 [facility] SHANA LAKEName: HOANG MCNEILL : 1970 Sex: M Name: HOANG MCNEILL FSED : 1970 Age/S: 51 / M [address] [facility] Unit #: [id number] Loc: [place] [address] Phys: Raffaele Levi MD Acct: [id number] Dis Date: Status: PRE ER PHONE #: Exam Date: 09/23/20211999 FAX #: Reason: RUQ PAIN, VOMITING EXAMS: CPT CODE: [id number] CT ABD PELVIS W/CONT 94256 PROCEDURE INFORMATION: Exam: CT Abdomen And Pelvis [...] patient size (includes targeted exams where dose ismatched to clinical indication); or iterative reconstruction. Contrast [...] mild to moderate wall thickening of few leftPAGE 1 Signed Report (CONTINUED) Name: HOANG MCNEILL FSED : 1970 Age/S: 51 / M [address] [facility]. Unit #: [id number] Loc: [place] [address] Phys: Raffaele Levi MD Acct: [id number] Dis Date: Status: PRE ER PHONE #: Exam Date: 09/23/20211999 FAX #: Reason: RUQ PAIN, VOMITING EXAMS: CPT CODE: [id number] CT ABD PELVIS W/CONT 89294 <Continued> abdominal small bowel loops may relate [...] (2049) PAGE 2 Signed ReportCOMP. METABOLIC PANEL (54082)2021-09-14 03:57:44 Test Item Value Reference Range Interpretation Comments NA (test code = 132 mmol/L 135-145 L 9887112617) K (test code = 4.1 mmol/L 3.5-5.0 8602940435) CL (test code = 101 mmol/L 98-108 4741081382) CO2 TOTAL (test code = 23 mmol/L -31 3249889707) AGAP (test code = 2-16 2870390222) BUN (test code = 23 mg/dL 7-23 5858558247) GLUCOSE (test code = 97 mg/dL 70-110 7832236994) CREATININE (test code = 1.48 mg/dL 0.60-1.25 H 0591061762) TOTAL BILI (test code = 0.3 mg/dL 0.1-1.1 5300492127) CALCIUM (test code = 9.0 mg/dL 8.6-10.6 7628220350) T PROTEIN (test code = 6.2 g/dL 6.3-8.2 L 5502062329) ALBUMIN (test code = 3.7 g/dL 3.5-5.0 9429596167) ALK PHOS (test code = 82 U/L 34-122 9290073293) ALTv (test code = 21 U/L 5-50 2-6) AST(SGOT) (test code = 20 U/L 13-40 7074871818) eGFR (test code = mL/min/1.73m2 3192552888) GILBERTO (test code = GILBERTO) Association of [...] tests). Lab Interpretation Abnormal (test code = 84193-0) [facility] WITH [id number] 03:52:42 Test Item Value Reference Range Interpretation [...] RDW-SD (test code = 47.2 fL 38.5-51.6 18480-2) RDW-CV (test code = 14.0 % 12.1-15.4 788-0) PLT (test code = See_Comment H [Automated 777-3) message] The sy stem which generated this result transmitted reference range : 150 - 328 10*3/ ?L. The reference r meredith was not used to interpret this result as normal/abnormal . MPV (test code = 9.2 fL 9.8-13.0 L 57531-7) NRBC/100 WBC (test See_Comment [Automat ed code = 9510587049) message] The system which generated this result transmitted reference range : 0.0 - 10.0 /100 WBCs. The refer ence range was not u sed to interpret th is result as normal/abnormal . NRBC x10^3 (test code <0.01 See_Comment [Auto mated = 2861662065) message] The s ystem which generated this result transmitted reference range : 10*3/?L. The reference range was not used to interpret this result as normal/abnormal . GRAN MAT (NEUT) % 61.3 % (test code = 770-8) IMM GRAN % (test code 0.20 % = 1542726280) LYMPH % (test code = 23.1 % 736-9) MONO % (test code = 13.7 % 5905-5) EOS % (test code = 1.5 % 713-8) BASO % (test code = 0.2 % 706-2) GRAN MAT x10^3(ANC) 2.78 10*3/uL 1.99-6.95 (test code = 4212489480) IMM GRAN x10^3 (test <0.03 0.00-0.06 code = 1219886014) LYMPH x10^3 (test code 1.05 10*3/uL 1.09-3.23 L = 731-0) MONO x10^3 (test code 0.62 10*3/uL 0.36-1.02 = 742-7) EOS x10^3 (test code = 0.07 10*3/uL 0.06-0.53 711-2) BASO x10^3 (test code <0.03 0.01-0.09 = 704-7) Lab Interpretation Abnormal (test code = 86215-8) [facility] [id number] 13:36:34 Test Item Value Reference Interpretation Comments Range TROPONIN I (test 0.001 ng/mL See_Comment [Automated code = 2834888300) message] The system which generated this result [...] biotin. Lab Interpretation Normal (test code = 72743-3) [facility] O[facility]-[id number] 13:36:34 Test Item Value Reference Range Interpretation Comments NT-proBNP (test code 79 pg/mL See_Comment [Autom ated = 4450764447) message] The system which generated this result transmitted reference range : <=125. The reference range was not used to interpret this result as normal/abnormal . GILBERTO (test code = GILBERTO) Biotin has been reported to cause a negative bias, interpret results relative to patient's use of biotin. Lab Interpretation Normal (test code = 60278-7) [facility] (NA, K, CL, CO2, GLUCOSE, BUN, CREATININE, CA)2021-09-12 13:24:32 Test Item Value Reference Range Interpretation Comments NA (test code = 134 mmol/L 135-145 L 7716596826) K (test code = 4.3 mmol/L 3.5-5.0 4664811445) CL (test code = 102 mmol/L 98-108 6915727910) CO2 TOTAL (test code = 23 mmol/L 23-31 7423405251) AGAP (test code = 2-16 9161992335) BUN (test code = 22 mg/dL 7-23 3037363598) GLUCOSE (test code = 89 mg/dL 70-110 3258660821) CREATININE (test code = 1.69 mg/dL 0.60-1.25 H 4717787969) CALCIUM (test code = 9.0 mg/dL 8.6-10.6 7786567447) eGFR (test code = mL/min/1.73m2 5458310706) GILBERTO (test code = GILBERTO) Association of [...] tests). Lab Interpretation Abnormal (test code = 80676-4) [facility] WITH [id number] 13:09:28 Test Item Value Reference Range Interpretation [...] RDW-SD (test code = 45.3 fL 38.5-51.6 20454-7) RDW-CV (test code = 13.9 % 12.1-15.4 788-0) PLT (test code = See_Comment H [Automated 777-3) message] The sy stem which generated this result transmitted reference range : 150 - 328 10*3/ ?L. The reference r meredith was not used to interpret this result as normal/abnormal . MPV (test code = 9.0 fL 9.8-13.0 L 16206-8) NRBC/100 WBC (test See_Comment [Automat ed code = 6334599261) message] The system which generated this result transmitted reference range : 0.0 - 10.0 /100 WBCs. The refer ence range was not u sed to interpret th is result as normal/abnormal . NRBC x10^3 (test code <0.01 See_Comment [Auto mated = 4780229246) message] The s ystem which generated this result transmitted reference range : 10*3/?L. The reference range was not used to interpret this result as normal/abnormal . GRAN MAT (NEUT) % 69.7 % (test code = 770-8) IMM GRAN % (test code 0.40 % = 1270622109) LYMPH % (test code = 16.9 % 736-9) MONO % (test code = 11.9 % 5905-5) EOS % (test code = 0.7 % 713-8) BASO % (test code = 0.4 % 706-2) GRAN MAT x10^3(ANC) 3.88 10*3/uL 1.99-6.95 (test code = 3098081896) IMM GRAN x10^3 (test <0.03 0.00-0.06 code = 4432150095) LYMPH x10^3 (test code 0.94 10*3/uL 1.09-3.23 L = 731-0) MONO x10^3 (test code 0.66 10*3/uL 0.36-1.02 = 742-7) EOS x10^3 (test code = 0.04 10*3/uL 0.06-0.53 L 711-2) BASO x10^3 (test code <0.03 0.01-0.09 = 704-7) Lab Interpretation Abnormal (test code = 69602-8) [facility] WITH [id number] 05:55:28 Test Item Value Reference Range Interpretation [...] RDW-SD (test code = 45.4 fL 38.5-51.6 45295-1) RDW-CV (test code = 13.8 % 12.1-15.4 788-0) PLT (test code = See_Comment [Automated 777-3) message] The sy stem which generated this result transmitted reference range : 150 - 328 10*3/ ?L. The reference r meredith was not used to interpret this result as normal/abnormal . MPV (test code = 9.2 fL 9.8-13.0 L 93831-9) NRBC/100 WBC (test See_Comment [Automat ed code = 7245461401) message] The system which generated this result transmitted reference range : 0.0 - 10.0 /100 WBCs. The refer ence range was not u sed to interpret th is result as normal/abnormal . NRBC x10^3 (test code <0.01 See_Comment [Auto mated = 3741651519) message] The s y[employer] Train which generated this result transmitted reference range : 10*3/?L. The reference range was not used to interpret this result as normal/abnormal . GRAN MAT (NEUT) % 60.6 % (test code = 770-8) IMM GRAN % (test code 0.20 % = 7373797394) LYMPH % (test code = 25.5 % 736-9) MONO % (test code = 10.5 % 5905-5) EOS % (test code = 2.8 % 713-8) BASO % (test code = 0.4 % 706-2) GRAN MAT x10^3(ANC) 3.23 10*3/uL 1.99-6.95 (test code = 3236148439) IMM GRAN x10^3 (test <0.03 0.00-0.06 code = 9947115182) LYMPH x10^3 (test code 1.36 10*3/uL 1.09-3.23 = 731-0) MONO x10^3 (test code 0.56 10*3/uL 0.36-1.02 = 742-7) EOS x10^3 (test code = 0.15 10*3/uL 0.06-0.53 711-2) BASO x10^3 (test code <0.03 0.01-0.09 = 704-7) Lab Interpretation Abnormal (test code = 95828-7) [facility] 05:48:47 Test Item Value Reference Range Interpretation Comments LIPASE (test code = 8704932858) 116 U/L 0-220 Lab Interpretation (test code = Normal 98734-0) [facility] METABOLIC PAN[facility] (85590)2021-09-09 05:48:46 Test Item Value Reference Range Interpretation Comments NA (test code = 137 mmol/L 135-145 8122080289) K (test code = 4.0 mmol/L 3.5-5.0 0460053954) CL (test code = 108 mmol/L 98-108 7036925565) CO2 TOTAL (test code = 22 mmol/L 23-31 L 8977015445) AGAP (test code = 2-16 5120052746) BUN (test code = 23 mg/dL 7-23 0262227388) GLUCOSE (test code = 89 mg/dL 70-110 2915270978) CREATININE (test code = 1.28 mg/dL 0.60-1.25 H 1760666125) TOTAL BILI (test code = 0.4 mg/dL 0.1-1.2 2631836422) CALCIUM (test code = 8.9 mg/dL 8.6-10.6 9720195314) T PROTEIN (test code = 6.0 g/dL 6.3-8.2 L 6516564201) ALBUMIN (test code = 3.5 g/dL 3.5-5.0 0067300898) ALK PHOS (test code = 67 U/L 34-122 9589512041) ALTv (test code = 18 U/L 5-50 1742-6) AST(SGOT) (test code = 22 U/L 13-40 2388111403) eGFR (test code = mL/min/1.73m2 3203107930) GILBERTO (test code = GILBERTO) Association of [...] tests). Lab Interpretation Abnormal (test code = 78690-3) [facility]. METABOLIC PANEL (92487)2021-09-08 02:29:45 Test Item Value Reference Range Interpretation Comments NA (test code = 138 mmol/L 135-145 9390341008) K (test code = 4.3 mmol/L 3.5-5.0 4135240944) CL (test code = 106 mmol/L 98-108 2607554304) CO2 TOTAL (test code = 27 mmol/L 23-31 6950539429) AGAP (test code = 2-16 5319366918) BUN (test code = 22 mg/dL 7-23 0690948133) GLUCOSE (test code = 90 mg/dL 70-110 5693643698) CREATININE (test code = 1.36 mg/dL 0.60-1.25 H 6109360849) TOTAL BILI (test code = 0.4 mg/dL 0.1-1.1 0083480677) CALCIUM (test code = 9.2 mg/dL 8.6-10.6 1275930791) T PROTEIN (test code = 6.5 g/dL 6.3-8.2 7805477659) ALBUMIN (test code = 3.8 g/dL 3.5-5.0 8474739695) ALK PHOS (test code = 73 U/L 34-122 5485907464) ALTv (test code = 19 U/L 5-50 1742-6) AST(SGOT) (test code = 24 U/L 13-40 0062460519) eGFR (test code = mL/min/1.73m2 1117316150) GILBERTO (test code = GILBERTO) Association of [...] tests). Lab Interpretation Abnormal (test code = 89772-3) [facility] 02:29:45 Test Item Value Reference Range Interpretation Comments LIPASE (test code = 6902744109) 75 U/L 0-220 Lab Interpretation (test code = Normal 97635-8) [facility] WITH [id number] 02:15:21 Test Item Value Reference Range Interpretation [...] RDW-SD (test code = 45.9 fL 38.5-51.6 11131-0) RDW-CV (test code = 13.6 % 12.1-15.4 788-0) PLT (test code = See_Comment [Automated 777-3) message] The sy stem which generated this result transmitted reference range : 150 - 328 10*3/ ?L. The reference r meredith was not used to interpret this result as normal/abnormal . MPV (test code = 9.4 fL 9.8-13.0 L 95129-5) NRBC/100 WBC (test See_Comment [Automat ed code = 8480800217) message] The system which generated this result transmitted reference range : 0.0 - 10.0 /100 WBCs. The refer ence range was not u sed to interpret th is result as normal/abnormal . NRBC x10^3 (test code <0.01 See_Comment [Auto mated = 5520191472) message] The s ystem which generated this result transmitted reference range : 10*3/?L. The reference range was not used to interpret this result as normal/abnormal . GRAN MAT (NEUT) % 66.0 % (test code = 770-8) IMM GRAN % (test code 0.50 % = 4806729477) LYMPH % (test code = 20.0 % 736-9) MONO % (test code = 9.8 % 5905-5) EOS % (test code = 3.5 % 713-8) BASO % (test code = 0.2 % 706-2) GRAN MAT x10^3(ANC) 3.77 10*3/uL 1.99-6.95 (test code = 9382088728) IMM GRAN x10^3 (test 0.03 10*3/uL 0.00-0.06 code = 2099887839) LYMPH x10^3 (test code 1.14 10*3/uL 1.09-3.23 = 731-0) MONO x10^3 (test code 0.56 10*3/uL 0.36-1.02 = 742-7) EOS x10^3 (test code = 0.20 10*3/uL 0.06-0.53 711-2) BASO x10^3 (test code <0.03 0.01-0.09 = 704-7) Lab Interpretation Abnormal (test code = 39290-0) [facility] Zqyqp0228-65-84 02:10:44 Test Item Value Reference Range Interpretation Comments LACTIC ACID (test code = 1.35 mmol/L 0.50-2.20 2323831232) Lab Interpretation (test code = Normal 31025-9) [facility] [id number] 15:31:19 Test Item Value Reference Range Interpretation Comments Case Report (test code Surgical Pathology ? ? = 8173534659) ?Case: [id number] ? Authorizing Provider: ?Bia Pedro MD ?Collected: ? 09/03/2021 0801 ?Ordering Location: ? ? [facility] OR ? Received: ?09/03/2021 08 ? Department ? Pathologist: ? Shaneka Douglas MD ? Specimen: ? ?ILEUM, Ileostomy ( staple ?end proximal ) ? Final Diagnosis (test m8uwvTApAMLtn5erMQAwrN code = 4120079722) FuZzEwMzNcZnRuYmpcdWMx IHtccnRmMVxlcGljOTYwMV orbqWxODCkqDFuQ9Oaeorn RDkdPI8wPF4adCgsyQKsrQ GgPSHrLxQei7ytq727bQMj j7nzEXEXmospmHf6jEokJ8 3oi0G0NalsV98buVZmZGQ0 HSWxNYFyqRSaJDNsPLO7WN MsxUDrI5hhHNMlST0tbacc PTdxDOxlPJAfjRP8LGGlwK ScM7VyARCzBHdmCPUgpfj8 NiWbKs3beDHxvRamHPgwQJ JkXHBsYWluXGZzMjBccGFy IEEuIElMRVVNLCBJTEVPU1 OAFUi0QQTopeXlSQKyJQ8p QkVOSUdOIElMRUFMIFRJU1 KYMGDULATFUSDWV6POQW2L K00CATatUNOZQ8sCKlZcVH 2JVHYAKqxTN2TGYEUBVLXG RUxTLCBccGFyICAgICAgIC AGB34PXYSJFU8FPJcJPVxc EYmPW2SZJ27LZEUzemxmHO JcZnMyMiBTcmkgQmhhcmF0 bVgsK1Y4eMLvQYZLJjMVSE ZtcpzfFAK6d8qthABeWIHc iKEuEsTdEUOhALYxe3whPV VmbGFuZzEwMzNcZnRuYmpc nFGfWNAnRiOkk3abz871nT Rwc0urGYYkOjX7zSInSXBl bGsgueg0tSfpVvIxXFZwv8 lzcyBcZmNoYXJzZXQwIEFy rUVxY547NWAwUIviu3fci7 VqCNSczUZth3E4LSYXACyv QeNnN548c5rva6fwukJivC E1WXDlSII3CZmlppIrfgG7 BNrzoXDeLaP0SXmhzkYtTK bxdwVruuWePpv0CTUqM952 PMG1fLfrx8zdJHL8YTCyYX YiLgkmXj6caHNnJ534KHBx TMGUZROfwPb1RMDbvdXjqm MlzFQVe601Y296a1vrAFDe wbNctMhLepoyw5mhJ865WO BhcGVydzEyMjQwXHBhcGVy sFG6MAUaGH9miqitLFeyHB qoUIArkwL9RFLpzWOmU1Sr FOMlOI2ahfmbVAI2TLoaRE YuSGP2JoAvZNIab8Zavhr3 AgLjkp5eth14YGD9g3AgsL prSGL2WIB5FdWrYz3qiHAa CHZuUE5wEgYjsIOdKNEmkf 20xYvoWKmnscViiD2hTgTf GLZufJQrEAExLT8qeELaYG HgyF5zadexSFQgNzAifkrt NUAfsOlbclDfDv4kzLtyLO T8KLwtD0cedW8lYvV2RGdk H8fhuQ0xGCz3JWctyDI9RL NnyT9pDV1wfxrjb6wbDXnq QQpiMWKqedS1bjX1SOBamK JkO9CgcA7uAHOxQA0lzake g2btAKH9RDfxERVeYBI2Jl YkWBKxc7Bztvy7MnIxo4Ok aTFoXUrrY86mr304VVUtcd NlX3tniXNeirqykVErbbws OLewacV5XIYwUASnLMqfXJ YxXGZzMjBcbGFuZzEwMzNc aGljaFxmMVxkYmNoXGYxXG pjT0oaAeGtH0AkEEYeLkGi rYUhQHmhlJW9MSYcFQFom7 2wlYz9DVSoemluq4GpMDIl lCRuoCLpeK0wmtQzg2viMI EvCPPiMBBfQ2AmRJJ2pGTi WDYpbLZhiDD4DD0rntGzZT 1hZGUgYnkgcmVzaWRlbnRz YIFaZLijb3yiFP1aOKJygV khhS5wcGY9PNUjo6rxdJUt mOIkd0nrk3AswcQuCEryOR LfBCmfBYYfTGFvPD1dBVXk sMMhvoOol3Y5BlnjrWStjo hzJklnxtA1TBtunfktUOUv FCdsA3ktNpMxUAPgcTohOy pxm6WoVDSmSSCvHjlucOXr fX0= Clinical Information 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] 1536527810) Gross Description (test t6zrxJNfKORtmAXIKEAoSo code = 3520753164) dwjrNnODJbxZQzL6Oigdlw RKwdXV9sMZ6htOuvzOBfaX AqLS9AFGVrWePeZVUmsCKr oeIuVuCsIHMlkBKquLR1VO TeVZ0vmtgxVWisMAqtTSCv rwF2KIStvIRlW9ThDQDwAY 3yoggnEFW0GYyotF6kvdAE UkemNe2tjFPhtFjrGvCkDe NoYXJzZXQwXGZuaWwgQXJp TEl7zZ2CIkfjRKF9YDOWDn dkEWBoOM0Dm7qiLLAckHLa ENY7ULydvJLsVEIgKGHkRJ s3NEFpLCsneILtLZ7zwYvn LgcvqXslc4XwbWOoAIrxTV YbKBCqJRriKUWjSP7UNiSd IDmKGMJyJTAwTbA1LHj2HG DHArDnOeVjZZq8Hcf0DpTh WUo9YWf6BKpCDbLsLUD9Ff UeYjI6FZL2ZOCtLZsymXKe IFxcZiBBcmlhbCBcXGZzID BqYCpoEeboRZpvV29xzHxy bZ5rZxCkXIEGBsNDNIRYXQ 0geNAtFN9BPRHdNZvpLNDo nEUILTC9MU3bBCIJCqappY AtMGFwuTcmFFkguH0cBM3D WAd2txYiNJCoJmHcK4PnO1 nvBQ4lYKVcxdZkLPYxsHCk ZCBmcmVzaCBhbmQgbGFiZW zbYQF8wIOnUNXhYFJaSBWl NM64A3GdgwPeODfgTAjhle XeAiFrMGYmlKV9jZhrnCwu h5H5o144BTQbhLGjoRUbQB 1nKOInw6jlvXViUwMwjjEp H63bk3fciEVel5CcJQC7KU 5gwAusjjQgGOqnSX02AH0q MXOuMJxdIQQea1XuMNw7Uj JjC81esR1odHBuK7XzTVM3 IDQuMiBjbSBpbiBkaWFtZX Dtskimg3p7dJNmVZD9i91t JTwcOflxdEMfXcFyI47zFB usxlXvOXthgXchBJV4vGtl XTVaiGFdXfC5IA6aNjLgd8 5bb3qvreEwekVkOQPqqSDu lNWmZTXym6NfgIsccdAcYA XchJ0lZGYgTLTcnYTslC8o biBpcyBvcGVuIHRvIHJldm RksDW8EP6gaFuuqpZiyj8r w3q6DWLljfVsVLMtMIInQU HboFFgm7TyQHCORPPuWINp tfXqaHe8SIMcPRT0fD0hou HxfmDfr7FlaZr4kVIoTHkc HREmHKBkaq01Q2lbYWHyRB BhciANClxwYXIgDQpBMTog sKYarAuhPCimuNByS7vzQX YtWINqHSHmjoLxxAr3UZSr tDJlTI2SZKS0KLG2h55pWK PxKRNhWXGecwVszNy3NEsr ADZuNXsKCnhuSm87TWtwv0 OecTiuymVxjjTdPY77HFXs ncAaaTXtKM4CNPQnluISZh M6sUfwFAi2ZCF1RShiSCJ4 lB7ib7wpp8DoTsCOu9Zks2 CfnnXgn3K1EWZdaBxvtR8a MV8wjdnzLXYlQQL3w1UhEQ LHEMzdlQzexT6yNLVuJ59q h5VGr8LoJWCpLUhob1cgwR ypc3YmhUIwABlfPUFvjFNw OHnhvQ1vGwNfd8oppFp2QR llfkV6XVTldb8CSssghH7v YjTko3dsmCp7SQCFLlzfbu D6n8ocnMrna5CnsWLkIS5B Cn0= Disclaimer (test code = g4zhqBItMXKvc9fiLPXizN 6359192477) FuZzEwMzNcZnRuYmpcdWMx SGimsqAcBJqtq2YvG8NqZs AwMFxhbnNpXGRlZmxhbmcx KSUxNWI7wuTsKKZmEJagCL AvBYgkFm7fvLAkkNcyHzGu TTVdo6eaybLFVDntHiVsY1 08STTbJBsrx9xmj8NiYKWk tZEkb2P1HLNQgjqzrGs0eK mzM46nt9X7SajvR0zbVHJj QNHzK1QeEF9fDUEbRrb7NA O4WSO5XUSfJOJgZ3UfYG4i XSFwbOEuBYk9p8bmkMxnJR ViDRF2p3idHUiteqYlAL5h gn7ogXd7s1rrdkVoWIEwXD EjvXNZYOMsJ9DypGjhQm6q yVi8kEocZyqmXQD8Npk8NS 5phj00ynx1yHfqVCCftnml FeA8ZKzaATEjxwsePHl0MD raCAEbqJA7UXAduOShP1Ac VHRjXH0oace4KUP1MBujCR NhUgS5FTLoqVEnLXQcfSvf UNgyw793TFV1XzImNL4gK8 Bks3R6eM4rkOPwKQOoqJFv BuZtOOCnzl9afIVeQWkes3 YtYLE6gjO3gTOpeKVaYKRq LE48Szzlp0NiEyizp8MrX3 7zrUV5KReom7vbHM0iIxY9 ieGjWXyfj5olaJ9dHeC8GG ioCE8cFT0hPYRteL8rjrrq XHBnYnJkcmhlYWRccGdicm YhDj2gkQxgTBK7VMneI3vx jN9bAfJ2CCdlE9jxvD2vJB r9MQzxyAO5RNWdtW3qUB4m gdodv4yeHAjgFVzuTBGlwq V1ynM6CMMlsPYaW6HegD9c AZEaHT8ywdgiv0hoAGZ3CM gzYEWzYKF4QuErNJGpo0Xf txj2OuHgr3ClkIRhCKvmL0 5cj377HNRbtvXxV4zlwYOc bragqBVaakosQEzvutC2AS UmhkKia9CoHGJmVPH4HDcl YTlbmPFlGPQcsUjre0kiR6 RscGFyXHBsYWluXGYxXGZz MjBcbGFuZzEwMzNcaGljaF wgAQofXfCaOSHiINyiL2yl TuWkZ4ZaIUHxAjAtjMClY9 ggVGhpcyByZXBvcnQgbWF5 CQcuG3i5JNQqeeXtuTs6dt DvOfCgPDYzMVO5YKbcgOLq HKNuh8KgvdeccVUdDe9meO DmVXVkhA5yNFGxQRRqUPmr PR4euQl2MKUSiVEzoLFlLz DPSTUkKV51enGxIJCDurdv o9P6MBuyCFEpf5ZbbFMuT1 qnk2JvRCOfg47cII6on7M5 s2tnBGU7QV5ce3LvEYCcpH KluIZnQDYdn4Luvypzp1Wn NDBcyiVoq9SoMUEctkJfwN TnMJYiscXgna1nscBwEQYu QAQzT5SrjhnicXorgkMoIS Wcus9nusXrFTG3GXSWDJGs BPXxk2IxrG8acBDYVBH7nV Mpmk8hbuVMkJZcPTOots76 CKNlXL7mT4nwJTYyWOCyzc JbcRGdw2GdYLFzuJS9xFWx ZD1OTqKGs28rLUReUFCZep YyZMQntSshxKG9ryD3qW2p IChGREEpLlx+IFRoZSBGRE SrYW8sfuGcx0YszxHpaIwu CXYeqLXiw3EalKRlx0GobN zqa9NolKHokPBwKB7gRJNb clxwYXIgVVRNQiBMYWJvcm C2y4FyHEIdRUIrUPR7cBqy ouo7OZPueT4qHYDiD9hzey jyORhaLVGag1OmqE3kfJYN lGGdz7RmdZQjaYSXgBOdNN 8ayrFhMGtAMMhFQSA8swAq CSPkn8CvJPjyV6peN92llG cocYq5hOH0QDS2jS5fIjj+ IFxwYXJccGFyIEFwcHJvcH AzQJAngStboaKtA7XlfrGb oV5jaUJzezRkSH1aRU9rY1 C9fRAgJGBnvaKnp6ceQDkw dmUgYmVlbiByZXZpZXdlZC Dxc9IyYWcmWUO8UOtfagEa bmNsdWRpbmcgSCZFLCBTcG QypVYaTSJ6UMwdkuXcmcKb VP1woX3wtPsvnN6atKRrdP Z0qnbuYFRlRKSfbNqkUZKy YY5ddSPxGSKdhaCTvWksiK XahM8jA2KfFZNpMDPmha4h AEZgdT1lEXkrc1PqgnsaDF AvFRKpXWDpodApim4vJGZe hPOIAI2KZTvrjYFgs9Dvuc NyS8wDIWZ5DSDvIzOaNfas SDYndETvtAPxAONenp73MW AynR0dhMemOQZjoK4qrD7e qXmojE9uPmUdHhMbSBjtHI 9tEXXlY4fyxWGrHFZyETWn U6ckJbHyjA9jdAiwSFtsYn PnMdUeVIycVWB9tH== Embedded Images (test code = 3803632871) [facility] [id number] 09:01:06 Test Item Value Reference Range Interpretation Comments Blood Culture-Aerobic No organisms No growth Previo us (test code = 57993-1) isolated prelim inary verified result was Culture In Progress on 08/31/2021 at 060 1 CSTPrevious preliminary verified result was No growth a t 24 hours on 09/01/2021 at 030 1 CSTPrevious preliminary verified result was No growth a t 48 hours on 09/02/2021 at 03 01 CSTPrevious preliminary verified result was No growth a t 72 hours on 09/03/2021 at 03 01 [employer] Blood No organisms No growth Previous Culture-Anaerobic isolated preliminar y (test code = 17266-6) verifi ed result was Culture In Progress on 08/31/2021 at 060 1 CSTPrevious preliminary verified result was No growth a t 24 hours on 09/01/2021 at 030 1 CSTPrevious preliminary verified result was No growth a t 48 hours on 09/02/2021 at 03 01 CSTPrevious preliminary verified result was No growth a t 72 hours on 09/03/2021 at 03 01 [employer] Lab Interpretation Normal (test code = 93488-8) [facility] METABOLIC PANEL (NA, K, CL, CO2, GLUCOSE, BUN, CREATININE, CA)2021-09-04 13:22:54 Test Item Value Reference Range Interpretation Comments NA (test code = 132 mmol/L 135-145 L [id number]) K (test code = 4.3 mmol/L 3.5-5.0 4637732089) CL (test code = 104 mmol/L 98-108 5446831355) CO2 TOTAL (test code = 23 mmol/L 23-31 1370894216) AGAP (test code = 2-16 9267293680) BUN (test code = 15 mg/dL 7-23 2359615991) GLUCOSE (test code = 96 mg/dL 70-110 5090192491) CREATININE (test code = 1.42 mg/dL 0.60-1.25 H 8122063974) CALCIUM (test code = 8.7 mg/dL 8.6-10.6 9165225634) eGFR (test code = mL/min/1.73m2 5263309363) GILBERTO (test code = GILBERTO) Association of [...] tests). Lab Interpretation Abnormal (test code = 99446-3) [facility] METABOLIC PANEL (NA, K, CL, CO2, GLUCOSE, BUN, CREATININE, CA)2021-09-04 13:22:54 Test Item Value Reference Range Interpretation Comments NA (test code = 132 mmol/L 135-145 L [id number]) K (test code = 4.3 mmol/L 3.5-5.0 5788867965) CL (test code = 104 mmol/L 98-108 7795946976) CO2 TOTAL (test code = 23 mmol/L 23-31 5292829372) AGAP (test code = 2-16 0993274165) BUN (test code = 15 mg/dL 7-23 5277936760) GLUCOSE (test code = 96 mg/dL 70-110 2110766552) CREATININE (test code = 1.42 mg/dL 0.60-1.25 H 3538521484) CALCIUM (test code = 8.7 mg/dL 8.6-10.6 8262345304) eGFR (test code = mL/min/1.73m2 1309270161) GILBERTO (test code = GILBERTO) Association of [...] tests). Lab Interpretation Abnormal (test code = 31598-6) [facility] CULTURE [id number] 17:16:36 Test Item Value Reference Range Interpretation Comments Blood Culture Coagulase negative Addition al Workup (test Staphylococcus work-up perfo rmed code = 600-7) only per reque st. Culture plate(s ) will be saved until this date : 09/08/21 Gram stain Isolated from aerobic (test code = bottle Gram positive 664-3) cocci in clusters [facility] CULTURE [id number] 17:16:36 Test Item Value Reference Range Interpretation Comments Blood Culture Coagulase negative Addition al Workup (test Staphylococcus work-up perfo rmed code = 600-7) only per reque st. Culture plate(s ) will be saved until this date : 09/08/21 Gram stain Isolated from aerobic (test code = bottle Gram positive 664-3) [facility] - Peripheral Vein # 17:16:26 Test Item Value Reference Range Interpretation Comments Blood Culture-Aerobic Culture positive. No growth AA P revious (test code = 57415-7) See Blood Culture p reliminary Workup for verified result additional was Culture In information. Progress on 08/31/2021 at 060 1 [employer] Blood No organisms No growth Previous Culture-Anaerobic isolated preliminar y (test code = 55831-8) verifi ed result was Culture In Progress on 09/01/2021 at 012 7 [employer] Lab Interpretation Abnormal (test code = 54313-6) [facility] Culture - Peripheral Vein # 17:16:26 Test Item Value Reference Range Interpretation Comments Blood Culture-Aerobic Culture positive. No growth AA P revious (test code = 26273-2) See Blood Culture p reliminary Workup for verified result additional was Culture In information. Progress on 08/31/2021 at 060 1 [employer] Blood No organisms No growth Previous Culture-Anaerobic isolated preliminar y (test code = 09008-3) verifi ed result was Culture In Progress on 09/01/2021 at 012 7 [employer] Lab Interpretation Abnormal (test code = 66220-2) [facility] METABOLIC PANEL (NA, K, CL, CO2, GLUCOSE, BUN, CREATININE, CA)2021-09-03 12:16:04 Test Item Value Reference Range Interpretation Comments NA (test code = 130 mmol/L 135-145 L 5505555019) K (test code = 4.1 mmol/L 3.5-5.0 5530095503) CL (test code = 103 mmol/L 98-108 2047815964) CO2 TOTAL (test code = 21 mmol/L 23-31 L 0772697188) AGAP (test code = 2-16 7840473977) BUN (test code = 14 mg/dL 7-23 1877150684) GLUCOSE (test code = 90 mg/dL 70-110 2804441300) CREATININE (test code = 1.28 mg/dL 0.60-1.25 H 2729980942) CALCIUM (test code = 8.8 mg/dL 8.6-10.6 0351707082) eGFR (test code = mL/min/1.73m2 5186329124) GILBERTO (test code = GILBERTO) Association of [...] tests). Lab Interpretation Abnormal (test code = 78221-5) [facility] METABOLIC PANEL (NA, K, CL, CO2, GLUCOSE, BUN, CREATININE, CA)2021-09-03 12:16:04 Test Item Value Reference Range Interpretation Comments NA (test code = 130 mmol/L 135-145 L 3451541328) K (test code = 4.1 mmol/L 3.5-5.0 1956427990) CL (test code = 103 mmol/L 98-108 1122175799) CO2 TOTAL (test code = 21 mmol/L 23-31 L 1205812034) AGAP (test code = 2-16 3707467324) BUN (test code = 14 mg/dL 7-23 1782638697) GLUCOSE (test code = 90 mg/dL 70-110 8171096156) CREATININE (test code = 1.28 mg/dL 0.60-1.25 H 7879237161) CALCIUM (test code = 8.8 mg/dL 8.6-10.6 3080496185) eGFR (test code = mL/min/1.73m2 5701746575) GILBERTO (test code = GILBERTO) Association of [...] tests). Lab Interpretation Abnormal (test code = 32535-8) [facility] WITHOUT [id number] 11:53:39 Test Item Value Reference Range Interpretation Comments WBC (test code = 6690-2) See_Comment [A utomated message] The system [employer] generated this result transmit dain reference range : 4.20 - 10.70 10*3/?L. The reference range was not used to interpret this result as normal/abnormal . RBC (test code = 789-8) See_Comment L [Au tomated message] The system [employer] generated this result transmit dain reference range [...] 777-3) See_Comment [Au tomated message] The system [employer] generated this result transmit dain reference range : 150 - 328 10*3/?L. The reference range was not used to interpret this result as normal/abnormal . MPV (test code = 10.1 fL 9.8-13.0 13861-4) RDW-CV (test code = 13.5 % 12.1-15.4 788-0) RDW-SD (test code = 44.6 fL 38.5-51.6 39847-2) NRBC x10^3 (test code = <0.01 See_Comment [Au tomated message] 3736688637) The system [employer] generated this result transmit dain reference range : 10*3/?L. The reference range was not used to interpret this result as normal/abnormal . NRBC/100 WBC (test code See_Comment [Au tomated message] = 1463356388) The system [facility] generated this result transmit dain reference range : 0.0 - 10.0 /100 WBC s. The reference r meredith was not used to interpret this result as normal/abnormal . IPF % (test code = 0002377465) Lab Interpretation (test Abnormal code = 84250-9) [facility] WITHOUT [id number] 11:53:39 Test Item Value Reference Range Interpretation Comments WBC (test code = 6690-2) See_Comment [A utomated message] The system [employer] generated this result transmit dain reference range : 4.20 - 10.70 10*3/?L. The reference range was not used to interpret this result as normal/abnormal . RBC (test code = 789-8) See_Comment L [Au tomated message] The system [employer] generated this result transmit dain reference range [...] 777-3) See_Comment [Au tomated message] The system [employer] generated this result transmit dain reference range : 150 - 328 10*3/?L. The reference range was not used to interpret this result as normal/abnormal . MPV (test code = 10.1 fL 9.8-13.0 06402-8) RDW-CV (test code = 13.5 % 12.1-15.4 788-0) RDW-SD (test code = 44.6 fL 38.5-51.6 55758-3) NRBC x10^3 (test code = <0.01 See_Comment [Au tomated message] 4751386231) The system [employer] generated this result transmit dain reference range : 10*3/?L. The reference range was not used to interpret this result as normal/abnormal . NRBC/100 WBC (test code See_Comment [Au tomated message] = 7088218568) The system [employer] generated this result transmit dain reference range : 0.0 - 10.0 /100 WBC s. The reference r meredith was not used to interpret this result as normal/abnormal . IPF % (test code = 1621331152) Lab Interpretation (test Abnormal code = 63466-1) [facility] METABOLIC PANEL (NA, K, CL, CO2, GLUCOSE, BUN, CREATININE, CA)2021-09-02 12:06:01 Test Item Value Reference Range Interpretation Comments NA (test code = 132 mmol/L 135-145 L 9451199593) K (test code = 4.4 mmol/L 3.5-5.0 1558854709) CL (test code = 106 mmol/L 98-108 4691670653) CO2 TOTAL (test code = 22 mmol/L 23-31 L 1303178797) AGAP (test code = 2-16 9922899102) BUN (test code = 16 mg/dL 7-23 0629001972) GLUCOSE (test code = 83 mg/dL 70-110 6701728073) CREATININE (test code = 1.33 mg/dL 0.60-1.25 H 5816879930) CALCIUM (test code = 8.8 mg/dL 8.6-10.6 2119187823) eGFR (test code = mL/min/1.73m2 8578799176) GILBERTO (test code = GILBERTO) Association of [...] tests). Lab Interpretation Abnormal (test code = 33954-3) [facility] METABOLIC PANEL (NA, K, CL, CO2, GLUCOSE, BUN, CREATININE, CA)2021-09-02 12:06:01 Test Item Value Reference Range Interpretation Comments NA (test code = 132 mmol/L 135-145 L 4233209802) K (test code = 4.4 mmol/L 3.5-5.0 4407150767) CL (test code = 106 mmol/L 98-108 9862828520) CO2 TOTAL (test code = 22 mmol/L 23-31 L 0561562288) AGAP (test code = 2-16 7179750653) BUN (test code = 16 mg/dL 7-23 1613500783) GLUCOSE (test code = 83 mg/dL 70-110 8952870247) CREATININE (test code = 1.33 mg/dL 0.60-1.25 H 8528716930) CALCIUM (test code = 8.8 mg/dL 8.6-10.6 1290840360) eGFR (test code = mL/min/1.73m2 0563757612) GILBERTO (test code = GILBERTO) Association of [...] tests). Lab Interpretation Abnormal (test code = 14450-7) [facility] METABOLIC PANEL (NA, K, CL, CO2, GLUCOSE, BUN, CREATININE, CA)2021-09-01 21:55:22 Test Item Value Reference Range Interpretation Comments NA (test code = 130 mmol/L 135-145 L 0151692678) K (test code = 4.2 mmol/L 3.5-5.0 4993247907) CL (test code = 103 mmol/L 98-108 5680435046) CO2 TOTAL (test code = 20 mmol/L 23-31 L 1106532719) AGAP (test code = 2-16 5690258249) BUN (test code = 20 mg/dL 7-23 4120881453) GLUCOSE (test code = 106 mg/dL 70-110 2994430979) CREATININE (test code = 1.51 mg/dL 0.60-1.25 H 8067801214) CALCIUM (test code = 8.5 mg/dL 8.6-10.6 L 4332041373) eGFR (test code = mL/min/1.73m2 8875522381) GILBERTO (test code = GILBERTO) Association of [...] tests). Lab Interpretation Abnormal (test code = 10744-3) [facility] (NA, K, CL, CO2, GLUCOSE, BUN, CREATININE, CA)2021-09-01 21:55:22 Test Item Value Reference Range Interpretation Comments NA (test code = 130 mmol/L 135-145 L 7064106024) K (test code = 4.2 mmol/L 3.5-5.0 4932946961) CL (test code = 103 mmol/L 98-108 0284210048) CO2 TOTAL (test code = 20 mmol/L 23-31 L 2911481979) AGAP (test code = 2-16 6749175436) BUN (test code = 20 mg/dL 7-23 5269260533) GLUCOSE (test code = 106 mg/dL 70-110 5049804745) CREATININE (test code = 1.51 mg/dL 0.60-1.25 H 6969726820) CALCIUM (test code = 8.5 mg/dL 8.6-10.6 L 0775384622) eGFR (test code = mL/min/1.73m2 1056654036) GILBERTO (test code = GILBERTO) Association of [...] tests). Lab Interpretation Abnormal (test code = 33358-5) [facility] DNA [id number] 10:31:32 Test Item Value Reference Range Interpretation Comments Coagulase Negative Positive Negative, See A Staphylococcus (test Comment/Narrative code = 43545-8) GILBERTO (test code = GILBERTO) Coagulase negative [...] contact the Antimicrobial Stewardship Program with questions.Pager: ?[phone] Testing included eleven identification and three resistance marker targets. Lab Interpretation Abnormal (test code = 47430-5) [facility] DNA [id number] 10:31:32 Test Item Value Reference Range Interpretation Comments Coagulase Negative Positive Negative, See A Staphylococcus (test Comment/Narrative code = 63984-4) GILBERTO (test code = GILBERTO) Coagulase negative [...] contact the Antimicrobial Stewardship Program with questions.Pager: ?[phone] Testing included eleven identification and three resistance marker targets. Lab Interpretation Abnormal (test code = 05695-7) [facility] METABOLIC PANEL (NA, K, CL, CO2, GLUCOSE, BUN, CREATININE, CA)2021-09-01 08:38:47 Test Item Value Reference Range Interpretation Comments NA (test code = 130 mmol/L 135-145 L 3716368868) K (test code = 4.0 mmol/L 3.5-5.0 2121554288) CL (test code = 105 mmol/L 98-108 6933723074) CO2 TOTAL (test code = 20 mmol/L 23-31 L 4368433487) AGAP (test code = 2-16 1962872998) BUN (test code = 21 mg/dL 7-23 1993927208) GLUCOSE (test code = 88 mg/dL 70-110 3128336102) CREATININE (test code = 1.31 mg/dL 0.60-1.25 H 8185089773) CALCIUM (test code = 8.5 mg/dL 8.6-10.6 L 2134668080) eGFR (test code = mL/min/1.73m2 4126062120) GILBERTO (test code = GILBERTO) Association of [...] tests). Lab Interpretation Abnormal (test code = 96515-4) [facility] METABOLIC PANEL (NA, K, CL, CO2, GLUCOSE, BUN, CREATININE, CA)2021-09-01 08:38:47 Test Item Value Reference Range Interpretation Comments NA (test code = 130 mmol/L 135-145 L 8724861038) K (test code = 4.0 mmol/L 3.5-5.0 2524173371) CL (test code = 105 mmol/L 98-108 9487494273) CO2 TOTAL (test code = 20 mmol/L 23-31 L 3344050251) AGAP (test code = 2-16 3430346373) BUN (test code = 21 mg/dL 7-23 2798148873) GLUCOSE (test code = 88 mg/dL 70-110 3248892092) CREATININE (test code = 1.31 mg/dL 0.60-1.25 H 4198506623) CALCIUM (test code = 8.5 mg/dL 8.6-10.6 L 3416990491) eGFR (test code = mL/min/1.73m2 1520060062) GILBERTO (test code = GILBERTO) Association of [...] tests). Lab Interpretation Abnormal (test code = 20592-2) [facility] WITH [id number] 08:13:43 Test Item Value Reference Range Interpretation [...] RDW-SD (test code = 43.0 fL 38.5-51.6 85236-7) RDW-CV (test code = 13.7 % 12.1-15.4 788-0) PLT (test code = See_Comment [Automated 777-3) message] The sy stem which generated this result transmitted reference range : 150 - 328 10*3/ ?L. The reference r meredith was not used to interpret this result as normal/abnormal . MPV (test code = 9.9 fL 9.8-13.0 71998-2) NRBC/100 WBC (test See_Comment [Automat ed code = 1357872784) message] The system which generated this result transmitted reference range : 0.0 - 10.0 /100 WBCs. The refer ence range was not u sed to interpret th is result as normal/abnormal . NRBC x10^3 (test code <0.01 See_Comment [Auto mated = 3238566385) message] The s ystem which generated this result transmitted reference range : 10*3/?L. The reference range was not used to interpret this result as normal/abnormal . GRAN MAT (NEUT) % 48.2 % (test code = 770-8) IMM GRAN % (test code 0.40 % = 9339553848) LYMPH % (test code = 39.5 % 736-9) MONO % (test code = 9.0 % 5905-5) EOS % (test code = 2.3 % 713-8) BASO % (test code = 0.6 % 706-2) GRAN MAT x10^3(ANC) 2.35 10*3/uL 1.99-6.95 (test code = 3131066418) IMM GRAN x10^3 (test <0.03 0.00-0.06 code = 2858979471) LYMPH x10^3 (test code 1.93 10*3/uL 1.09-3.23 = 731-0) MONO x10^3 (test code 0.44 10*3/uL 0.36-1.02 = 742-7) EOS x10^3 (test code = 0.11 10*3/uL 0.06-0.53 711-2) BASO x10^3 (test code 0.03 10*3/uL 0.01-0.09 = 704-7) Lab Interpretation Abnormal (test code = 57392-4) [facility] WITH [id number] 08:13:43 Test Item Value Reference Range Interpretation [...] RDW-SD (test code = 43.0 fL 38.5-51.6 51826-3) RDW-CV (test code = 13.7 % 12.1-15.4 788-0) PLT (test code = See_Comment [Automated 777-3) message] The sy stem which generated this result transmitted reference range : 150 - 328 10*3/ ?L. The reference r meredith was not used to interpret this result as normal/abnormal . MPV (test code = 9.9 fL 9.8-13.0 56025-4) NRBC/100 WBC (test See_Comment [Automat ed code = 6006565940) message] The system which generated this result transmitted reference range : 0.0 - 10.0 /100 WBCs. The refer ence range was not u sed to interpret th is result as normal/abnormal . NRBC x10^3 (test code <0.01 See_Comment [Auto mated = 8516251702) message] The s ystem which generated this result transmitted reference range : 10*3/?L. The reference range was not used to interpret this result as normal/abnormal . GRAN MAT (NEUT) % 48.2 % (test code = 770-8) IMM GRAN % (test code 0.40 % = 7807625928) LYMPH % (test code = 39.5 % 736-9) MONO % (test code = 9.0 % 5905-5) EOS % (test code = 2.3 % 713-8) BASO % (test code = 0.6 % 706-2) GRAN MAT x10^3(ANC) 2.35 10*3/uL 1.99-6.95 (test code = 7593082407) IMM GRAN x10^3 (test <0.03 0.00-0.06 code = 5881488764) LYMPH x10^3 (test code 1.93 10*3/uL 1.09-3.23 = 731-0) MONO x10^3 (test code 0.44 10*3/uL 0.36-1.02 = 742-7) EOS x10^3 (test code = 0.11 10*3/uL 0.06-0.53 711-2) BASO x10^3 (test code 0.03 10*3/uL 0.01-0.09 = 704-7) Lab Interpretation Abnormal (test code = 11280-2) [facility] [id number] 06:37:20 Test Item Value Reference Range Interpretation Comments MAGNESIUM (test code = 9509982877) 1.9 mg/dL 1.7-2.4 Lab Interpretation (test code = Normal 15632-8) [facility] [id number] 06:37:20 Test Item Value Reference Range Interpretation Comments MAGNESIUM (test code = 4273432001) 1.9 mg/dL 1.7-2.4 Lab Interpretation (test code = Normal 82467-4) [facility] METABOLIC PANEL (NA, K, CL, CO2, GLUCOSE, BUN, CREATININE, CA)2021-09-01 02:46:47 Test Item Value Reference Range Interpretation Comments NA (test code = 132 mmol/L 135-145 L 2315225603) K (test code = 4.0 mmol/L 3.5-5.0 1336596511) CL (test code = 102 mmol/L 98-108 0729952726) CO2 TOTAL (test code = 21 mmol/L 23-31 L 8802747507) AGAP (test code = 2-16 4550434365) BUN (test code = 24 mg/dL 7-23 H 4055913330) GLUCOSE (test code = 95 mg/dL 70-110 0655615519) CREATININE (test code = 1.40 mg/dL 0.60-1.25 H 2154690280) CALCIUM (test code = 8.6 mg/dL 8.6-10.6 0519346365) eGFR (test code = mL/min/1.73m2 4868972421) GILBERTO (test code = GILBERTO) Association of [...] tests). Lab Interpretation Abnormal (test code = 70678-7) [facility] METABOLIC PANEL (NA, K, CL, CO2, GLUCOSE, BUN, CREATININE, CA)2021-09-01 02:46:47 Test Item Value Reference Range Interpretation Comments NA (test code = 132 mmol/L 135-145 L 5077094749) K (test code = 4.0 mmol/L 3.5-5.0 6998444638) CL (test code = 102 mmol/L 98-108 2247225911) CO2 TOTAL (test code = 21 mmol/L 23-31 L 7663486933) AGAP (test code = 2-16 7858856087) BUN (test code = 24 mg/dL 7-23 H 6488383584) GLUCOSE (test code = 95 mg/dL 70-110 2054396039) CREATININE (test code = 1.40 mg/dL 0.60-1.25 H 8354118013) CALCIUM (test code = 8.6 mg/dL 8.6-10.6 2255468743) eGFR (test code = mL/min/1.73m2 9083439137) GILBERTO (test code = GILBERTO) Association of [...] tests). Lab Interpretation Abnormal (test code = 97453-2) [facility] [id number] 12:49:48 Test Item Value Reference Range Interpretation Comments LACTIC ACID (test code = 2.02 mmol/L 0.50-2.20 QUE S 2659145404) Lab Interpretation (test code = Normal 74394-8) [facility] [id number] 12:49:48 Test Item Value Reference Range Interpretation Comments LACTIC ACID (test code = 2.02 mmol/L 0.50-2.20 QUE S 2154677313) Lab Interpretation (test code = Normal 78574-1) [facility] METABOLIC PANEL (NA, K, CL, CO2, GLUCOSE, BUN, CREATININE, CA)2021-08-31 12:29:06 Test Item Value Reference Range Interpretation Comments NA (test code = 129 mmol/L 135-145 L 8025210644) K (test code = 3.6 mmol/L 3.5-5.0 4728188809) CL (test code = 101 mmol/L 98-108 3664048215) CO2 TOTAL (test code = 18 mmol/L 23-31 L 8910920582) AGAP (test code = 2-16 6394002466) BUN (test code = 35 mg/dL 7-23 H 4672648632) GLUCOSE (test code = 97 mg/dL 70-110 9939718207) CREATININE (test code = 1.58 mg/dL 0.60-1.25 H 4472024464) CALCIUM (test code = 8.3 mg/dL 8.6-10.6 L 6919727588) eGFR (test code = mL/min/1.73m2 9453167268) GILBERTO (test code = GILBERTO) Association of [...] tests). Lab Interpretation Abnormal (test code = 49836-8) [facility] METABOLIC PANEL (NA, K, CL, CO2, GLUCOSE, BUN, CREATININE, CA)2021-08-31 12:29:06 Test Item Value Reference Range Interpretation Comments NA (test code = 129 mmol/L 135-145 L 4280991847) K (test code = 3.6 mmol/L 3.5-5.0 9546314871) CL (test code = 101 mmol/L 98-108 9596080856) CO2 TOTAL (test code = 18 mmol/L 23-31 L 1895037872) AGAP (test code = 2-16 2422723849) BUN (test code = 35 mg/dL 7-23 H 2921353942) GLUCOSE (test code = 97 mg/dL 70-110 1165739873) CREATININE (test code = 1.58 mg/dL 0.60-1.25 H 5651568204) CALCIUM (test code = 8.3 mg/dL 8.6-10.6 L 7518105125) eGFR (test code = mL/min/1.73m2 9488297711) GILBERTO (test code = GILBERTO) Association of [...] tests). Lab Interpretation Abnormal (test code = 82115-8) [facility] [id number] 07:42:44 Test Item Value Reference Range Interpretation Comments TSH (test code = See_Comment [Automated message] 1248761172) The system [employer] generated this result transmitted ref erence range: 0.45 - 4 .70 mIU/L. The refe rence range was not u sed to interpret this result as normal/abnor mal. Lab Interpretation (test Normal code = 33675-0) [facility] [id number] 07:42:44 Test Item Value Reference Range Interpretation Comments TSH (test code = See_Comment [Automated message] 5381637536) The system [employer] generated this result transmitted ref erence range: 0.45 - 4 .70 mIU/L. The refe rence range was not u sed to interpret this result as normal/abnor mal. Lab Interpretation (test Normal code = 93590-0) [facility] METABOLIC PANEL (NA, K, CL, CO2, GLUCOSE, BUN, CREATININE, CA)2021-08-31 07:40:43 Test Item Value Reference Range Interpretation Comments NA (test code = 129 mmol/L 135-145 L 7081270680) K (test code = 3.8 mmol/L 3.5-5.0 Slight 3273939082) hemolysis CL (test code = 102 mmol/L 98-108 8234789931) CO2 TOTAL (test code 18 mmol/L 23-31 L = 5991521873) AGAP (test code = 2-16 8715266368) BUN (test code = 46 mg/dL 7-23 H Slight 8934942899) hemolysis GLUCOSE (test code = 100 mg/dL 70-110 5182937633) CREATININE (test code 1.72 mg/dL 0.60-1.25 H = 6565625625) CALCIUM (test code = 8.5 mg/dL 8.6-10.6 L 5844437957) eGFR (test code = mL/min/1.73m2 5808292357) GILBERTO (test code = GILBERTO) Association of [...] tests). Lab Interpretation Abnormal (test code = 49929-7) [facility] METABOLIC PANEL (NA, K, CL, CO2, GLUCOSE, BUN, CREATININE, CA)2021-08-31 07:40:43 Test Item Value Reference Range Interpretation Comments NA (test code = 129 mmol/L 135-145 L 6114730950) K (test code = 3.8 mmol/L 3.5-5.0 Slight 0431841229) hemolysis CL (test code = 102 mmol/L 98-108 3695814117) CO2 TOTAL (test code 18 mmol/L 23-31 L = 5984824522) AGAP (test code = 2-16 7048260352) BUN (test code = 46 mg/dL 7-23 H Slight 8435484892) hemolysis GLUCOSE (test code = 100 mg/dL 70-110 2019652857) CREATININE (test code 1.72 mg/dL 0.60-1.25 H = 4119773857) CALCIUM (test code = 8.5 mg/dL 8.6-10.6 L 0857810335) eGFR (test code = mL/min/1.73m2 1439185850) GILBERTO (test code = GILBERTO) Association of [...] tests). Lab Interpretation Abnormal (test code = 57239-1) [facility] [id number] 07:08:01 Test Item Value Reference Range Interpretation Comments LACTIC ACID (test code = 1.96 mmol/L 0.50-2.20 QUE S 8694000745) Lab Interpretation (test code = Normal 95460-3) [facility] [id number] 07:08:01 Test Item Value Reference Range Interpretation Comments LACTIC ACID (test code = 1.96 mmol/L 0.50-2.20 QUE S 7867718928) Lab Interpretation (test code = Normal 76451-4) [facility] OR [id number] 06:33:43 Test Item Value Reference Range Interpretation Comments OSMOLALITY (test code = See_Comment [Au tomated message] 8974619315) The system [employer] generated this result transmitted ref erence range: 278 - 30 5 mOsm/kg. The re ference range was not u sed to interpret this result as normal/abnor mal. Lab Interpretation (test Normal code = 07593-0) [facility] SERUM OR [id number] 06:33:43 Test Item Value Reference Range Interpretation Comments OSMOLALITY (test code = See_Comment [Au tomated message] 0971386780) The system [employer] generated this result transmitted ref erence range: 278 - 30 5 mOsm/kg. The re ference range was not u sed to interpret this result as normal/abnor mal. Lab Interpretation (test Normal code = 51869-3) [facility] [id number] 04:28:44 Test Item Value Reference Interpretation Comments Range TROPONIN I (test 0.003 ng/mL See_Comment [Automated code = 9887932572) message] The system which generated this result [...] biotin. Lab Interpretation Normal (test code = 07505-9) [id number] 04:28:44 Test Item Value Reference Interpretation Comments Range TROPONIN I (test 0.003 ng/mL See_Comment [Automated code = 2368854112) message] The system which generated this result [...] biotin. Lab Interpretation Normal (test code = 70524-0) [facility] (NA, K, CL, CO2, GLUCOSE, BUN, CREATININE, CA)2021-08-31 04:07:42 Test Item Value Reference Range Interpretation Comments NA (test code = 125 mmol/L 135-145 L 6459578712) K (test code = 4.1 mmol/L 3.5-5.0 Slight 1922945183) hemolysis CL (test code = 100 mmol/L 98-108 2521625883) CO2 TOTAL (test code 17 mmol/L 23-31 L = 7257354871) AGAP (test code = 2-16 7377426384) BUN (test code = 52 mg/dL 7-23 H Slight 3866170521) hemolysis GLUCOSE (test code = 94 mg/dL 70-110 3401094508) CREATININE (test code 1.77 mg/dL 0.60-1.25 H = 1659745047) CALCIUM (test code = 8.2 mg/dL 8.6-10.6 L 1102087208) eGFR (test code = mL/min/1.73m2 7392369496) GILBERTO (test code = GILBERTO) Association of [...] tests). Lab Interpretation Abnormal (test code = 43427-7) [facility] METABOLIC PANEL (NA, K, CL, CO2, GLUCOSE, BUN, CREATININE, CA)2021-08-31 04:07:42 Test Item Value Reference Range Interpretation Comments NA (test code = 125 mmol/L 135-145 L [id number]) K (test code = 4.1 mmol/L 3.5-5.0 Slight 2058021113) hemolysis CL (test code = 100 mmol/L 98-108 9197866497) CO2 TOTAL (test code 17 mmol/L 23-31 L = 0957535391) AGAP (test code = 2-16 4418728505) BUN (test code = 52 mg/dL 7-23 H Slight 9479763346) hemolysis GLUCOSE (test code = 94 mg/dL 70-110 6845194914) CREATININE (test code 1.77 mg/dL 0.60-1.25 H = 1924913694) CALCIUM (test code = 8.2 mg/dL 8.6-10.6 L 3416013219) eGFR (test code = mL/min/1.73m2 0605495901) GILBERTO (test code = GILBERTO) Association of [...] tests). Lab Interpretation Abnormal (test code = 99301-7) [facility] [id number] 00:22:59 Test Item Value Reference Interpretation Comments Range TROPONIN I (test 0.003 ng/mL See_Comment [Automated code = 9413166059) message] The system which generated this result [...] biotin. Lab Interpretation Normal (test code = 49152-4) [id number] 00:22:59 Test Item Value Reference Range Interpretation Comments NT-proBNP (test code 55 pg/mL See_Comment [Autom ated = 1593133452) message] The system which generated this result transmitted reference range : <=125. The reference range was not used to interpret this result as normal/abnormal . GILBERTO (test code = GILBERTO) Biotin has been reported to cause a negative bias, interpret results relative to patient's use of biotin. Lab Interpretation Normal (test code = 80311-2) [facility] [id number] 00:22:59 Test Item Value Reference Interpretation Comments Range TROPONIN I (test 0.003 ng/mL See_Comment [Automated code = 0631721432) message] The system which generated this result [...] biotin. Lab Interpretation Normal (test code = 54919-9) [facility] [id number] 00:22:59 Test Item Value Reference Range Interpretation Comments NT-proBNP (test code 55 pg/mL See_Comment [Autom ated = 3144352534) message] The system which generated this result transmitted reference range : <=125. The reference range was not used to interpret this result as normal/abnormal . GILBERTO (test code = GILBERTO) Biotin has been reported to cause a negative bias, interpret results relative to patient's use of biotin. Lab Interpretation Normal (test code = 71514-4) [facility] ([id number])2021-08-31 00:07:17 Test Item Value Reference Range Interpretation Comments NA (test code = 126 mmol/L 135-145 L 1351692485) K (test code = 4.3 mmol/L 3.5-5.0 Slight 7104297857) hemolysis CL (test code = 96 mmol/L 98-108 L 2266442035) CO2 TOTAL (test code 18 mmol/L 23-31 L = 0399331098) AGAP (test code = 2-16 6480716218) BUN (test code = 58 mg/dL 7-23 H Slight 1953210717) hemolysis GLUCOSE (test code = 108 mg/dL 70-110 3897991800) CREATININE (test code 2.11 mg/dL 0.60-1.25 H = 2545321971) TOTAL BILI (test code 0.7 mg/dL 0.1-1.1 = 4635097866) CALCIUM (test code = 9.2 mg/dL 8.6-10.6 5622189282) T PROTEIN (test code 7.6 g/dL 6.3-8.2 = 9889088147) ALBUMIN (test code = 4.9 g/dL 3.5-5.0 6918669915) ALK PHOS (test code = 96 U/L 34-122 Slight 5447611756) hemolysis ALTv (test code = 27 U/L 5-50 1742-6) AST(SGOT) (test code 46 U/L 13-40 H Slight = 9035957685) hemolysis eGFR (test code = mL/min/1.73m2 8528719941) GILBERTO (test code = GILBERTO) Association of [...] tests). Lab Interpretation Abnormal (test code = 86419-8) [facility]. METABOLIC PANEL ([id number])2021-08-31 00:07:17 Test Item Value Reference Range Interpretation Comments NA (test code = 126 mmol/L 135-145 L 4040609394) K (test code = 4.3 mmol/L 3.5-5.0 Slight 2111217354) hemolysis CL (test code = 96 mmol/L 98-108 L 6445741101) CO2 TOTAL (test code 18 mmol/L 23-31 L = 0063129516) AGAP (test code = 2-16 9832513468) BUN (test code = 58 mg/dL 7-23 H Slight 7543122047) hemolysis GLUCOSE (test code = 108 mg/dL 70-110 2519541843) CREATININE (test code 2.11 mg/dL 0.60-1.25 H = 8835719751) TOTAL BILI (test code 0.7 mg/dL 0.1-1.1 = 8030181116) CALCIUM (test code = 9.2 mg/dL 8.6-10.6 7844598952) T PROTEIN (test code 7.6 g/dL 6.3-8.2 = 8011484810) ALBUMIN (test code = 4.9 g/dL 3.5-5.0 0959899943) ALK PHOS (test code = 96 U/L 34-122 Slight 2846520422) hemolysis ALTv (test code = 27 U/L 5-50 1742-6) AST(SGOT) (test code 46 U/L 13-40 H Slight = 2626014811) hemolysis eGFR (test code = mL/min/1.73m2 9871608167) GILBERTO (test code = GILBERTO) Association of [...] tests). Lab Interpretation Abnormal (test code = 24577-5) [facility] WITH [id number] 23:36:10 Test Item Value Reference Range Interpretation [...] RDW-SD (test code = 41.7 fL 38.5-51.6 59807-4) RDW-CV (test code = 13.4 % 12.1-15.4 788-0) PLT (test code = See_Comment [Automated 777-3) message] The sy stem which generated this result transmitted reference range : 150 - 328 10*3/ ?L. The reference r meredith was not used to interpret this result as normal/abnormal . MPV (test code = 10.3 fL 9.8-13.0 05350-5) NRBC/100 WBC (test See_Comment [Automat ed code = 8725619384) message] The system which generated this result transmitted reference range : 0.0 - 10.0 /100 WBCs. The refer ence range was not u sed to interpret th is result as normal/abnormal . NRBC x10^3 (test code <0.01 See_Comment [Auto mated = 3026101694) message] The s ystem which generated this result transmitted reference range : 10*3/?L. The reference range was not used to interpret this result as normal/abnormal . GRAN MAT (NEUT) % 60.6 % (test code = 770-8) IMM GRAN % (test code 0.30 % = 5033380612) LYMPH % (test code = 29.1 % 736-9) MONO % (test code = 8.8 % 5905-5) EOS % (test code = 0.6 % 713-8) BASO % (test code = 0.6 % 706-2) GRAN MAT x10^3(ANC) 4.08 10*3/uL 1.99-6.95 (test code = 5610165278) IMM GRAN x10^3 (test <0.03 0.00-0.06 code = 2241226273) LYMPH x10^3 (test code 1.96 10*3/uL 1.09-3.23 = 731-0) MONO x10^3 (test code 0.59 10*3/uL 0.36-1.02 = 742-7) EOS x10^3 (test code = 0.04 10*3/uL 0.06-0.53 L 711-2) BASO x10^3 (test code 0.04 10*3/uL 0.01-0.09 = 704-7) Lab Interpretation Abnormal (test code = 15520-8) [facility] WITH [id number] 23:36:10 Test Item Value Reference Range Interpretation Comments WBC (test code = See_Comment [Automated 7990-2) message] The sy stem which generated this result transmitted reference range : 4.20 - 10.70 10*3/?L. The reference range was not used to interpret this result as normal/abnormal . RBC (test code = See_Comment [Automated 849-8) message] The sy stem which generated this [...] RDW-SD (test code = 41.7 fL 38.5-51.6 08028-4) RDW-CV (test code = 13.4 % 12.1-15.4 788-0) PLT (test code = See_Comment [Automated 777-3) message] The sy stem which generated this result transmitted reference range : 150 - 328 10*3/ ?L. The reference r meredith was not used to interpret this result as normal/abnormal . MPV (test code = 10.3 fL 9.8-13.0 71964-1) NRBC/100 WBC (test See_Comment [Automat ed code = 3085919994) message] The system which generated this result transmitted reference range : 0.0 - 10.0 /100 WBCs. The refer ence range was not u sed to interpret th is result as normal/abnormal . NRBC x10^3 (test code <0.01 See_Comment [Auto mated = 1546104741) message] The s ystem which generated this result transmitted reference range : 10*3/?L. The reference range was not used to interpret this result as normal/abnormal . GRAN MAT (NEUT) % 60.6 % (test code = 770-8) IMM GRAN % (test code 0.30 % = 2535816362) LYMPH % (test code = 29.1 % 736-9) MONO % (test code = 8.8 % 5905-5) EOS % (test code = 0.6 % 713-8) BASO % (test code = 0.6 % 706-2) GRAN MAT x10^3(ANC) 4.08 10*3/uL 1.99-6.95 (test code = 6911195058) IMM GRAN x10^3 (test <0.03 0.00-0.06 code = 2897185630) LYMPH x10^3 (test code 1.96 10*3/uL 1.09-3.23 = 731-0) MONO x10^3 (test code 0.59 10*3/uL 0.36-1.02 = 742-7) EOS x10^3 (test code = 0.04 10*3/uL 0.06-0.53 L 711-2) BASO x10^3 (test code 0.04 10*3/uL 0.01-0.09 = 704-7) Lab Interpretation Abnormal (test code = 93906-4) [facility] [id number] 00:24:00 Test Item Value Reference Range Interpretation Comments POCT GP A STREP (test code = Negative Negative - Negative 03681-5) Lab Interpretation (test code = Normal 73500-7) [facility] 11:38:43 Test Item Value Reference Range Interpretation Comments PALB (test code = 74063-5) 25.2 mg/dL 18.0-45.0 Lab Interpretation (test code = Normal 37474-0) [facility] (NA, K, CL, CO2, GLUCOSE, BUN, CREATININE, CA)2021-08-05 11:30:59 Test Item Value Reference Range Interpretation Comments NA (test code = 140 mmol/L 135-145 1571466635) K (test code = 4.2 mmol/L 3.5-5.0 5517370694) CL (test code = 110 mmol/L 98-108 H 6958110159) CO2 TOTAL (test code = 27 mmol/L 23-31 3269082119) AGAP (test code = 2-16 7702774707) BUN (test code = 9 mg/dL 7-23 1650140026) GLUCOSE (test code = 86 mg/dL 70-110 5200772915) CREATININE (test code = 1.51 mg/dL 0.60-1.25 H 5430627326) CALCIUM (test code = 8.5 mg/dL 8.6-10.6 L 2802843932) eGFR (test code = mL/min/1.73m2 2668237425) GILBERTO (test code = GILBERTO) Association of [...] tests). Lab Interpretation Abnormal (test code = 96626-9) [facility]2021-[facility]-13 11:30:59 Test Item Value Reference Range Interpretation Comments MAGNESIUM (test code = 6489065597) 2.0 mg/dL 1.7-2.4 Lab Interpretation (test code = Normal 61409-0) [facility]2021-[facility]-13 11:30:59 Test Item Value Reference Range Interpretation Comments PHOSPHORUS (test code = 7534061366) 5.1 mg/dL 2.5-5.0 H Lab Interpretation (test code = Abnormal 05430-2) [facility] 11:30:59 Test Item Value Reference Range Interpretation Comments ALBUMIN (test code = 4035967604) 3.1 g/dL 3.5-5.0 L Lab Interpretation (test code = Abnormal 85550-5) [facility] WITH [id number] 11:05:58 Test Item Value Reference Range Interpretation [...] RDW-SD (test code = 47.5 fL 38.5-51.6 58952-8) RDW-CV (test code = 14.0 % 12.1-15.4 788-0) PLT (test code = See_Comment [Automated 777-3) message] The sy stem which generated this result transmitted reference range : 150 - 328 10*3/ ?L. The reference r meredith was not used to interpret this result as normal/abnormal . MPV (test code = 9.5 fL 9.8-13.0 L 87240-4) NRBC/100 WBC (test See_Comment [Automat ed code = 9096143178) message] The system which generated this result transmitted reference range : 0.0 - 10.0 /100 WBCs. The refer ence range was not u sed to interpret th is result as normal/abnormal . NRBC x10^3 (test code <0.01 See_Comment [Auto mated = 6472279590) message] The s ystem which generated this result transmitted reference range : 10*3/?L. The reference range was not used to interpret this result as normal/abnormal . GRAN MAT (NEUT) % 52.5 % (test code = 770-8) IMM GRAN % (test code 0.30 % = 7757478851) LYMPH % (test code = 31.1 % 736-9) MONO % (test code = 11.7 % 5905-5) EOS % (test code = 3.9 % 713-8) BASO % (test code = 0.5 % 706-2) GRAN MAT x10^3(ANC) 2.03 10*3/uL 1.99-6.95 (test code = 9651982791) IMM GRAN x10^3 (test <0.03 0.00-0.06 code = 7006352819) LYMPH x10^3 (test code 1.20 10*3/uL 1.09-3.23 = 731-0) MONO x10^3 (test code 0.45 10*3/uL 0.36-1.02 = 742-7) EOS x10^3 (test code = 0.15 10*3/uL 0.06-0.53 711-2) BASO x10^3 (test code <0.03 0.01-0.09 = 704-7) Lab Interpretation Abnormal (test code = 06074-2) [facility] WITH [id number] 12:30:17 Test Item Value Reference Range Interpretation [...] RDW-SD (test code = 49.2 fL 38.5-51.6 05649-9) RDW-CV (test code = 14.3 % 12.1-15.4 788-0) PLT (test code = See_Comment [Automated 777-3) message] The sy stem which generated this result transmitted reference range : 150 - 328 10*3/ ?L. The reference r meredith was not used to interpret this result as normal/abnormal . MPV (test code = 9.2 fL 9.8-13.0 L 41315-9) NRBC/100 WBC (test See_Comment [Automat ed code = 0429056173) message] The system which generated this result transmitted reference range : 0.0 - 10.0 /100 WBCs. The refer ence range was not u sed to interpret th is result as normal/abnormal . NRBC x10^3 (test code <0.01 See_Comment [Auto mated = 6660766226) message] The s ystem which generated this result transmitted reference range : 10*3/?L. The reference range was not used to interpret this result as normal/abnormal . GRAN MAT (NEUT) % 47.2 % (test code = 770-8) IMM GRAN % (test code 0.30 % = 3028273452) LYMPH % (test code = 36.0 % 736-9) MONO % (test code = 12.6 % 5905-5) EOS % (test code = 3.4 % 713-8) BASO % (test code = 0.5 % 706-2) GRAN MAT x10^3(ANC) 1.80 10*3/uL 1.99-6.95 L (test code = 2452943213) IMM GRAN x10^3 (test <0.03 0.00-0.06 code = 3127108411) LYMPH x10^3 (test code 1.37 10*3/uL 1.09-3.23 = 731-0) MONO x10^3 (test code 0.48 10*3/uL 0.36-1.02 = 742-7) EOS x10^3 (test code = 0.13 10*3/uL 0.06-0.53 711-2) BASO x10^3 (test code <0.03 0.01-0.09 = 704-7) Lab Interpretation Abnormal (test code = 25372-5) [facility] METABOLIC PANEL (NA, K, CL, CO2, GLUCOSE, BUN, CREATININE, CA)2021-08-04 12:17:48 Test Item Value Reference Range Interpretation Comments NA (test code = 139 mmol/L 135-145 4913753397) K (test code = 4.3 mmol/L 3.5-5.0 8684095659) CL (test code = 110 mmol/L 98-108 H 3064720594) CO2 TOTAL (test code = 26 mmol/L 23-31 9023975970) AGAP (test code = 2-16 8171442876) BUN (test code = 8 mg/dL 7-23 2318317864) GLUCOSE (test code = 87 mg/dL 70-110 2808881188) CREATININE (test code = 1.50 mg/dL 0.60-1.25 H 5762595687) CALCIUM (test code = 8.4 mg/dL 8.6-10.6 L 9955505169) eGFR (test code = mL/min/1.73m2 6852568507) GILBERTO (test code = GILBERTO) Association of [...] tests). Lab Interpretation Abnormal (test code = 80114-3) [facility] 12:17:48 Test Item Value Reference Range Interpretation Comments MAGNESIUM (test code = 4312082927) 1.9 mg/dL 1.7-2.4 Lab Interpretation (test code = Normal 48125-0) [facility] 12:17:48 Test Item Value Reference Range Interpretation Comments PHOSPHORUS (test code = 5464200732) 4.6 mg/dL 2.5-5.0 Lab Interpretation (test code = Normal 33640-4) [facility] [id number] 11:23:38 Test Item Value Reference Range Interpretation [...] RDW-SD (test code = 47.8 fL 38.5-51.6 62584-8) RDW-CV (test code = 14.1 % 12.1-15.4 788-0) PLT (test code = See_Comment [Automated 777-3) message] The sy stem which generated this result transmitted reference range : 150 - 328 10*3/ ?L. The reference r meredith was not used to interpret this result as normal/abnormal . MPV (test code = 9.3 fL 9.8-13.0 L 10462-0) NRBC/100 WBC (test See_Comment [Automat ed code = 6375599266) message] The system which generated this result transmitted reference range : 0.0 - 10.0 /100 WBCs. The refer ence range was not u sed to interpret th is result as normal/abnormal . NRBC x10^3 (test code <0.01 See_Comment [Auto mated = 0375657173) message] The s ystem which generated this result transmitted reference range : 10*3/?L. The reference range was not used to interpret this result as normal/abnormal . GRAN MAT (NEUT) % 49.3 % (test code = 770-8) IMM GRAN % (test code 0.30 % = 9332968670) LYMPH % (test code = 34.6 % 736-9) MONO % (test code = 12.0 % 5905-5) EOS % (test code = 3.3 % 713-8) BASO % (test code = 0.5 % 706-2) GRAN MAT x10^3(ANC) 1.97 10*3/uL 1.99-6.95 L (test code = 4567596691) IMM GRAN x10^3 (test <0.03 0.00-0.06 code = 1322894799) LYMPH x10^3 (test code 1.38 10*3/uL 1.09-3.23 = 731-0) MONO x10^3 (test code 0.48 10*3/uL 0.36-1.02 = 742-7) EOS x10^3 (test code = 0.13 10*3/uL 0.06-0.53 711-2) BASO x10^3 (test code <0.03 0.01-0.09 = 704-7) Lab Interpretation Abnormal (test code = 63095-3) [facility] METABOLIC PANEL (NA, K, CL, CO2, GLUCOSE, BUN, CREATININE, CA)2021-08-03 11:18:55 Test Item Value Reference Range Interpretation Comments NA (test code = 139 mmol/L 135-145 3824786321) K (test code = 4.1 mmol/L 3.5-5.0 5135453277) CL (test code = 110 mmol/L 98-108 H 8031055625) CO2 TOTAL (test code = 27 mmol/L 23-31 6446510991) AGAP (test code = 2-16 5950367805) BUN (test code = 8 mg/dL 7-23 6037374168) GLUCOSE (test code = 93 mg/dL 70-110 5865109177) CREATININE (test code = 1.39 mg/dL 0.60-1.25 H 7583866366) CALCIUM (test code = 8.1 mg/dL 8.6-10.6 L 3811165537) eGFR (test code = mL/min/1.73m2 0092201667) GILBERTO (test code = GILBERTO) Association of [...] tests). Lab Interpretation Abnormal (test code = 92435-9) [facility] 11:18:55 Test Item Value Reference Range Interpretation Comments MAGNESIUM (test code = 5527112303) 2.0 mg/dL 1.7-2.4 Lab Interpretation (test code = Normal 22580-1) [facility] 11:18:55 Test Item Value Reference Range Interpretation Comments PHOSPHORUS (test code = 6020808732) 3.8 mg/dL 2.5-5.0 Lab Interpretation (test code = Normal 30313-2) [facility] (NA, K, CL, CO2, GLUCOSE, BUN, CREATININE, CA)2021-08-02 14:06:51 Test Item Value Reference Range Interpretation Comments NA (test code = 137 mmol/L 135-145 0384288769) K (test code = 4.4 mmol/L 3.5-5.0 8564995813) CL (test code = 108 mmol/L 98-108 2105226536) CO2 TOTAL (test code = 24 mmol/L 23-31 9569734933) AGAP (test code = 2-16 8663903042) BUN (test code = 10 mg/dL 7-23 7564727159) GLUCOSE (test code = 83 mg/dL 70-110 8223014170) CREATININE (test code = 1.48 mg/dL 0.60-1.25 H 1189083356) CALCIUM (test code = 8.4 mg/dL 8.6-10.6 L 0768435853) eGFR (test code = mL/min/1.73m2 6390290786) GILBERTO (test code = GILBERTO) Association of [...] tests). Lab Interpretation Abnormal (test code = 92230-5) [facility] 14:06:51 Test Item Value Reference Range Interpretation Comments MAGNESIUM (test code = 9718622234) 2.1 mg/dL 1.7-2.4 Lab Interpretation (test code = Normal 49282-7) [facility] 14:06:51 Test Item Value Reference Range Interpretation Comments PHOSPHORUS (test code = 4997518950) 4.6 mg/dL 2.5-5.0 Lab Interpretation (test code = Normal 65733-7) [facility] [id number] 12:30:05 Test Item Value Reference Range Interpretation Comments WBC (test code = See_Comment L [Automated 2390-2) message] The sy stem which generated this [...] RDW-SD (test code = 48.6 fL 38.5-51.6 82381-3) RDW-CV (test code = 14.3 % 12.1-15.4 788-0) PLT (test code = See_Comment [Automated 777-3) message] The sy stem which generated this result transmitted reference range : 150 - 328 10*3/ ?L. The reference r meredith was not used to interpret this result as normal/abnormal . MPV (test code = 10.0 fL 9.8-13.0 20495-2) NRBC/100 WBC (test See_Comment [Automat ed code = 4744254239) message] The system which generated this result transmitted reference range : 0.0 - 10.0 /100 WBCs. The refer ence range was not u sed to interpret th is result as normal/abnormal . NRBC x10^3 (test code <0.01 See_Comment [Auto mated = 8549043270) message] The s ystem which generated this result transmitted reference range : 10*3/?L. The reference range was not used to interpret this result as normal/abnormal . GRAN MAT (NEUT) % 51.9 % (test code = 770-8) IMM GRAN % (test code 0.60 % = 6808015209) LYMPH % (test code = 32.7 % 736-9) MONO % (test code = 11.3 % 5905-5) EOS % (test code = 3.2 % 713-8) BASO % (test code = 0.3 % 706-2) GRAN MAT x10^3(ANC) 1.80 10*3/uL 1.99-6.95 L (test code = 4616133615) IMM GRAN x10^3 (test <0.03 0.00-0.06 code = 9631488226) LYMPH x10^3 (test code 1.13 10*3/uL 1.09-3.23 = 731-0) MONO x10^3 (test code 0.39 10*3/uL 0.36-1.02 = 742-7) EOS x10^3 (test code = 0.11 10*3/uL 0.06-0.53 711-2) BASO x10^3 (test code <0.03 0.01-0.09 = 704-7) Lab Interpretation Abnormal (test code = 75524-2) [facility] WITH [id number] 10:44:18 Test Item Value Reference Range Interpretation [...] RDW-SD (test code = 48.0 fL 38.5-51.6 60172-8) RDW-CV (test code = 14.1 % 12.1-15.4 788-0) PLT (test code = See_Comment [Automated 777-3) message] The sy stem which generated this result transmitted reference range : 150 - 328 10*3/ ?L. The reference r meredith was not used to interpret this result as normal/abnormal . MPV (test code = 9.5 fL 9.8-13.0 L 06135-4) NRBC/100 WBC (test See_Comment [Automat ed code = 8037178488) message] The system which generated this result transmitted reference range : 0.0 - 10.0 /100 WBCs. The refer ence range was not u sed to interpret th is result as normal/abnormal . NRBC x10^3 (test code <0.01 See_Comment [Auto mated = 1531614435) message] The s ystem which generated this result transmitted reference range : 10*3/?L. The reference range was not used to interpret this result as normal/abnormal . GRAN MAT (NEUT) % 50.8 % (test code = 770-8) IMM GRAN % (test code 0.30 % = 5846863275) LYMPH % (test code = 34.6 % 736-9) MONO % (test code = 10.3 % 5905-5) EOS % (test code = 3.7 % 713-8) BASO % (test code = 0.3 % 706-2) GRAN MAT x10^3(ANC) 1.78 10*3/uL 1.99-6.95 L (test code = 0691002996) IMM GRAN x10^3 (test <0.03 0.00-0.06 code = 1795813875) LYMPH x10^3 (test code 1.21 10*3/uL 1.09-3.23 = 731-0) MONO x10^3 (test code 0.36 10*3/uL 0.36-1.02 = 742-7) EOS x10^3 (test code = 0.13 10*3/uL 0.06-0.53 711-2) BASO x10^3 (test code <0.03 0.01-0.09 = 704-7) Lab Interpretation Abnormal (test code = 75373-3) [facility] METABOLIC PANEL (NA, K, CL, CO2, GLUCOSE, BUN, CREATININE, CA)2021-08-01 10:25:17 Test Item Value Reference Range Interpretation Comments NA (test code = 138 mmol/L 135-145 2357601402) K (test code = 4.1 mmol/L 3.5-5.0 7355584293) CL (test code = 105 mmol/L 98-108 8203492011) CO2 TOTAL (test code = 28 mmol/L 23-31 7625511370) AGAP (test code = 2-16 1323834724) BUN (test code = 13 mg/dL 7-23 6520661066) GLUCOSE (test code = 86 mg/dL 70-110 7573369404) CREATININE (test code = 1.46 mg/dL 0.60-1.25 H 6134162640) CALCIUM (test code = 8.7 mg/dL 8.6-10.6 1084306007) eGFR (test code = mL/min/1.73m2 2466969278) GILBERTO (test code = GILBERTO) Association of [...] tests). Lab Interpretation Abnormal (test code = 02592-2) [facility] 10:25:17 Test Item Value Reference Range Interpretation Comments MAGNESIUM (test code = 4837416829) 1.6 mg/dL 1.7-2.4 L Lab Interpretation (test code = Abnormal 40430-0) [facility] 10:25:17 Test Item Value Reference Range Interpretation Comments PHOSPHORUS (test code = 3589079173) 4.1 mg/dL 2.5-5.0 Lab Interpretation (test code = Normal 76503-1) [facility] 16:18:34 Test Item Value Reference Range Interpretation Comments PALB (test code = 93118-9) 24.3 mg/dL 18.0-45.0 Lab Interpretation (test code = Normal 70982-4) [id number] 11:20:19 Test Item Value Reference Range Interpretation [...] RDW-SD (test code = 49.6 fL 38.5-51.6 75498-6) RDW-CV (test code = 14.6 % 12.1-15.4 788-0) PLT (test code = See_Comment [Automated 777-3) message] The sy stem which generated this result transmitted reference range : 150 - 328 10*3/ ?L. The reference r meredith was not used to interpret this result as normal/abnormal . MPV (test code = 9.6 fL 9.8-13.0 L 47911-7) NRBC/100 WBC (test See_Comment [Automat ed code = [id number]) message] The system which generated this result transmitted reference range : 0.0 - 10.0 /100 WBCs. The refer ence range was not u sed to interpret th is result as normal/abnormal . NRBC x10^3 (test code <0.01 See_Comment [Auto mated = [id number]) message] The s ystem which generated this result transmitted reference range : 10*3/?L. The reference range was not used to interpret this result as normal/abnormal . GRAN MAT (NEUT) % 49.1 % (test code = 770-8) IMM GRAN % (test code 0.30 % = [id number]) LYMPH % (test code = 36.0 % 736-9) MONO % (test code = 10.6 % 5905-5) EOS % (test code = 3.4 % 713-8) BASO % (test code = 0.6 % 706-2) GRAN MAT x10^3(ANC) 1.76 10*3/uL 1.99-6.95 L (test code = 0088931622) IMM GRAN x10^3 (test <0.03 0.00-0.06 code = 0730425601) LYMPH x10^3 (test code 1.29 10*3/uL 1.09-3.23 = 731-0) MONO x10^3 (test code 0.38 10*3/uL 0.36-1.02 = 742-7) EOS x10^3 (test code = 0.12 10*3/uL 0.06-0.53 711-2) BASO x10^3 (test code <0.03 0.01-0.09 = 704-7) Lab Interpretation Abnormal (test code = 94913-6) [facility] METABOLIC PANEL (NA, K, CL, CO2, GLUCOSE, BUN, CREATININE, CA)2021-07-31 11:11:17 Test Item Value Reference Range Interpretation Comments NA (test code = 135 mmol/L 135-145 [id number]) K (test code = 3.8 mmol/L 3.5-5.0 2662963994) CL (test code = 108 mmol/L 98-108 9342288089) CO2 TOTAL (test code = 24 mmol/L 23-31 6322038794) AGAP (test code = 2-16 6311101817) BUN (test code = 13 mg/dL 7-23 4945574426) GLUCOSE (test code = 88 mg/dL 70-110 7181266660) CREATININE (test code = 1.32 mg/dL 0.60-1.25 H 8504398766) CALCIUM (test code = 8.4 mg/dL 8.6-10.6 L 7233919733) eGFR (test code = mL/min/1.73m2 2320018894) GILBERTO (test code = GILBERTO) Association of [...] tests). Lab Interpretation Abnormal (test code = 98765-0) [facility] 11[facility]11:17 Test Item Value Reference Range Interpretation Comments MAGNESIUM (test code = 7070014610) 1.8 mg/dL 1.7-2.4 Lab Interpretation (test code = Normal 68880-3) [facility] 11:11:17 Test Item Value Reference Range Interpretation Comments PHOSPHORUS (test code = 0028593253) 4.0 mg/dL 2.5-5.0 Lab Interpretation (test code = Normal 51450-8) [facility] (32334)2021-07-30 03:46:32 Test Item Value Reference Range Interpretation Comments NA (test code = 132 mmol/L 135-145 L 8131481613) K (test code = 4.4 mmol/L 3.5-5.0 7781355238) CL (test code = 102 mmol/L 98-108 1004227319) CO2 TOTAL (test code = 24 mmol/L 23-31 0603343252) AGAP (test code = 2-16 3260516532) BUN (test code = 21 mg/dL 7-23 1235085899) GLUCOSE (test code = 95 mg/dL 70-110 8949089335) CREATININE (test code = 1.76 mg/dL 0.60-1.25 H 0953183711) TOTAL BILI (test code = 0.7 mg/dL 0.1-1.8 6000715542) CALCIUM (test code = 8.8 mg/dL 8.6-10.6 4807618935) T PROTEIN (test code = 6.0 g/dL 6.3-8.2 L 6072383788) ALBUMIN (test code = 3.8 g/dL 3.5-5.0 3504111092) ALK PHOS (test code = 67 U/L 34-122 0303132243) ALTv (test code = 47 U/L 5-50 1742-6) AST(SGOT) (test code = 39 U/L 13-40 3653203821) eGFR (test code = mL/min/1.73m2 5094295601) GILBERTO (test code = GILBERTO) Association of [...] tests). Lab Interpretation Abnormal (test code = 44314-8) [facility] 03:19:26 Test Item Value Reference Range Interpretation Comments LIPASE (test code = 4068597738) 58 U/L 0-220 Lab Interpretation (test code = Normal 69412-5) [facility] WITH [id number] 03:07:20 Test Item Value Reference Range Interpretation Comments WBC (test code = See_Comment [Automated 5622-2) message] The sy stem which generated this result transmitted reference range : 4.20 - 10.70 10*3/?L. The reference range was not used to interpret this result as normal/abnormal . RBC (test code = See_Comment L [Automated 98) message] The sy stem which generated this [...] RDW-SD (test code = 47.4 fL 38.5-51.6 89417-9) RDW-CV (test code = 14.2 % 12.1-15.4 788-0) PLT (test code = See_Comment [Automated 777-3) message] The sy stem which generated this result transmitted reference range : 150 - 328 10*3/ ?L. The reference r meredith was not used to interpret this result as normal/abnormal . MPV (test code = 9.9 fL 9.8-13.0 17746-2) NRBC/100 WBC (test See_Comment [Automat ed code = 3248414454) message] The system which generated this result transmitted reference range : 0.0 - 10.0 /100 WBCs. The refer ence range was not u sed to interpret th is result as normal/abnormal . NRBC x10^3 (test code <0.01 See_Comment [Auto mated = 0328318779) message] The s ystem which generated this result transmitted reference range : 10*3/?L. The reference range was not used to interpret this result as normal/abnormal . GRAN MAT (NEUT) % 61.1 % (test code = 770-8) IMM GRAN % (test code 0.20 % = 2677461962) LYMPH % (test code = 24.4 % 736-9) MONO % (test code = 11.8 % 5905-5) EOS % (test code = 2.2 % 713-8) BASO % (test code = 0.3 % 706-2) GRAN MAT x10^3(ANC) 3.98 10*3/uL 1.99-6.95 (test code = 1813551800) IMM GRAN x10^3 (test <0.03 0.00-0.06 code = 8510877818) LYMPH x10^3 (test code 1.59 10*3/uL 1.09-3.23 = 731-0) MONO x10^3 (test code 0.77 10*3/uL 0.36-1.02 = 742-7) EOS x10^3 (test code = 0.14 10*3/uL 0.06-0.53 711-2) BASO x10^3 (test code <0.03 0.01-0.09 = 704-7) Lab Interpretation Abnormal (test code = 89505-3) [facility] Whole [id number] 03:00:47 Test Item Value Reference Range Interpretation Comments LACTIC ACID (test code = 1.45 mmol/L 0.50-2.20 QUE S 7584209710) Lab Interpretation (test code = Normal 45619-6) [facility] MET[facility]IC [id number] 11:51:00 Test Item Value Reference Range Interpretation [...] Units/L 50.0-136.0 N code = ALKP) PROTHROMBIN [id number] 11:41:00 Test Item Value Reference Range Interpretation Comments PROTHROMBIN TIME 10.9 SECONDS 9.9-12.8 N PATIENT (test code = PTP) INTERNATIONAL NORMAL 0.9 0.89-1.14 N THE INR IS TO BE USED RATIO (test code = ONLY FOR MONITORING INR) ORAL ANTICOAGULANTTH ERAPY. THE FOLLOWING A RE SUGGESTED RANGE S FROM [facility] LEGE OF CHEST PHYSICIANS:ROOPA CATION INR VALUEPROPHY LAXIS OF VENOUS THROM BOSIS (ORTHOPEDIC CASSIE BOB) 2.0 - 3.0PROPHY LAXIS OF VENOUS [...] 3 .0 ATRIAL FIBRILAT ION 2.0 - 3.0BILEAF LET MECHANICAL VALV E IN AORTIC POSITION 2.0 - 3.0MECHANICAL PROSTHETIC VALV ES (HIGH RISK) 2.5 - 3.5PRESENCE OF LUPUS ANTICOAGULANT O R ANTIPHOSPHOLIPI D ANTIBODIES 2.5 - 3.5 CBC W/AUTO [id number] 11:36:00 Test Item Value Reference Range Interpretation [...] NA (test code = 137 mmol/L 135-145 9822891111) K (test code = 4.2 mmol/L 3.5-5.0 2078873103) CL (test code = 109 mmol/L 98-108 H 7806179413) CO2 TOTAL (test code = 25 mmol/L 23-31 2798614634) AGAP (test code = 2-16 1211976135) BUN (test code = 11 mg/dL 7-23 1680617861) GLUCOSE (test code = 83 mg/dL 70-110 3824864091) CREATININE (test code = 1.40 mg/dL 0.60-1.25 H 8221737042) CALCIUM (test code = 8.6 mg/dL 8.6-10.6 9628070712) eGFR (test code = mL/min/1.73m2 6578490097) GILBERTO (test code = GILBERTO) Association of [...] tests). Lab Interpretation Abnormal (test code = 37726-3) [facility] 13:15:26 Test Item Value Reference Range Interpretation Comments MAGNESIUM (test code = 7119469304) 1.6 mg/dL 1.7-2.4 L Lab Interpretation (test code = Abnormal 83758-8) [facility]2021-[facility]-03 13:15:26 Test Item Value Reference Range Interpretation Comments PHOSPHORUS (test code = 5536975961) 3.5 mg/dL 2.5-5.0 Lab Interpretation (test code = Normal 78769-9) [facility] WITH [id number] 12:50:41 Test Item Value Reference Range Interpretation [...] RDW-SD (test code = 46.7 fL 38.5-51.6 84334-0) RDW-CV (test code = 14.3 % 12.1-15.4 788-0) PLT (test code = See_Comment [Automated 777-3) message] The sy stem which generated this result transmitted reference range : 150 - 328 10*3/ ?L. The reference r meredith was not used to interpret this result as normal/abnormal . MPV (test code = 9.6 fL 9.8-13.0 L 77063-2) NRBC/100 WBC (test See_Comment [Automat ed code = 6724946162) message] The system which generated this result transmitted reference range : 0.0 - 10.0 /100 WBCs. The refer ence range was not u sed to interpret th is result as normal/abnormal . NRBC x10^3 (test code <0.01 See_Comment [Auto mated = 5386092192) message] The s ystem which generated this result transmitted reference range : 10*3/?L. The reference range was not used to interpret this result as normal/abnormal . GRAN MAT (NEUT) % 52.7 % (test code = 770-8) IMM GRAN % (test code 0.40 % = 4078283329) LYMPH % (test code = 33.7 % 736-9) MONO % (test code = 10.4 % 5905-5) EOS % (test code = 2.4 % 713-8) BASO % (test code = 0.4 % 706-2) GRAN MAT x10^3(ANC) 2.65 10*3/uL 1.99-6.95 (test code = 7096752137) IMM GRAN x10^3 (test <0.03 0.00-0.06 code = 5808891617) LYMPH x10^3 (test code 1.69 10*3/uL 1.09-3.23 = 731-0) MONO x10^3 (test code 0.52 10*3/uL 0.36-1.02 = 742-7) EOS x10^3 (test code = 0.12 10*3/uL 0.06-0.53 711-2) BASO x10^3 (test code <0.03 0.01-0.09 = 704-7) Lab Interpretation Abnormal (test code = 67582-3) [facility] 12:35:59 Test Item Value Reference Range Interpretation Comments MAGNESIUM (test code = 5592884152) 1.6 mg/dL 1.7-2.4 L Lab Interpretation (test code = Abnormal 96065-1) [facility] 12:35:59 Test Item Value Reference Range Interpretation Comments PHOSPHORUS (test code = 1047702380) 4.0 mg/dL 2.5-5.0 Lab Interpretation (test code = Normal 89334-3) [facility] (NA, K, CL, CO2, GLUCOSE, BUN, CREATININE, CA)2021-07-25 12:09:12 Test Item Value Reference Range Interpretation Comments NA (test code = 139 mmol/L 135-145 6346354235) K (test code = 4.1 mmol/L 3.5-5.0 6299188611) CL (test code = 111 mmol/L 98-108 H 6085253004) CO2 TOTAL (test code = 25 mmol/L 23-31 5614633550) AGAP (test code = 2-16 9312650355) BUN (test code = 13 mg/dL 7-23 2114389668) GLUCOSE (test code = 86 mg/dL 70-110 7855878259) CREATININE (test code = 1.43 mg/dL 0.60-1.25 H 1399701631) CALCIUM (test code = 8.4 mg/dL 8.6-10.6 L 3465807527) eGFR (test code = mL/min/1.73m2 9744356405) GILBERTO (test code = GILBERTO) Association of [...] tests). Lab Interpretation Abnormal (test code = 29710-8) [facility] WITH [id number] 11:44:33 Test Item Value Reference Range Interpretation [...] RDW-SD (test code = 48.9 fL 38.5-51.6 18739-9) RDW-CV (test code = 14.3 % 12.1-15.4 788-0) PLT (test code = See_Comment [Automated 777-3) message] The sy stem which generated this result transmitted reference range : 150 - 328 10*3/ ?L. The reference r meredith was not used to interpret this result as normal/abnormal . MPV (test code = 9.6 fL 9.8-13.0 L 82549-0) NRBC/100 WBC (test See_Comment [Automat ed code = 4006388188) message] The system which generated this result transmitted reference range : 0.0 - 10.0 /100 WBCs. The refer ence range was not u sed to interpret th is result as normal/abnormal . NRBC x10^3 (test code <0.01 See_Comment [Auto mated = 9199163376) message] The s ystem which generated this result transmitted reference range : 10*3/?L. The reference range was not used to interpret this result as normal/abnormal . GRAN MAT (NEUT) % 50.0 % (test code = 770-8) IMM GRAN % (test code 0.20 % = 7196552742) LYMPH % (test code = 36.7 % 736-9) MONO % (test code = 10.0 % 5905-5) EOS % (test code = 2.6 % 713-8) BASO % (test code = 0.5 % 706-2) GRAN MAT x10^3(ANC) 2.11 10*3/uL 1.99-6.95 (test code = 7368077550) IMM GRAN x10^3 (test <0.03 0.00-0.06 code = 0135331227) LYMPH x10^3 (test code 1.55 10*3/uL 1.09-3.23 = 731-0) MONO x10^3 (test code 0.42 10*3/uL 0.36-1.02 = 742-7) EOS x10^3 (test code = 0.11 10*3/uL 0.06-0.53 711-2) BASO x10^3 (test code <0.03 0.01-0.09 = 704-7) Lab Interpretation Abnormal (test code = 90601-0) [facility] WITH [id number] 04:23:56 Test Item Value Reference Range Interpretation [...] RDW-SD (test code = 49.0 fL 38.5-51.6 45584-6) RDW-CV (test code = 14.4 % 12.1-15.4 788-0) PLT (test code = See_Comment [Automated 777-3) message] The sy stem which generated this result transmitted reference range : 150 - 328 10*3/ ?L. The reference r meredith was not used to interpret this result as normal/abnormal . MPV (test code = 9.5 fL 9.8-13.0 L 81930-0) NRBC/100 WBC (test See_Comment [Automat ed code = 6912365803) message] The system which generated this result transmitted reference range : 0.0 - 10.0 /100 WBCs. The refer ence range was not u sed to interpret th is result as normal/abnormal . NRBC x10^3 (test code <0.01 See_Comment [Auto mated = 4985577422) message] The s ystem which generated this result transmitted reference range : 10*3/?L. The reference range was not used to interpret this result as normal/abnormal . GRAN MAT (NEUT) % 49.9 % (test code = 770-8) IMM GRAN % (test code 0.20 % = 4248551243) LYMPH % (test code = 35.2 % 736-9) MONO % (test code = 11.7 % 5905-5) EOS % (test code = 2.4 % 713-8) BASO % (test code = 0.6 % 706-2) GRAN MAT x10^3(ANC) 2.31 10*3/uL 1.99-6.95 (test code = 6074022696) IMM GRAN x10^3 (test <0.03 0.00-0.06 code = 1682290049) LYMPH x10^3 (test code 1.63 10*3/uL 1.09-3.23 = 731-0) MONO x10^3 (test code 0.54 10*3/uL 0.36-1.02 = 742-7) EOS x10^3 (test code = 0.11 10*3/uL 0.06-0.53 711-2) BASO x10^3 (test code 0.03 10*3/uL 0.01-0.09 = 704-7) Lab Interpretation Abnormal (test code = 64778-3) [facility] METABOLIC PANEL (NA, K, CL, CO2, GLUCOSE, BUN, CREATININE, CA)2021-07-24 12:55:24 Test Item Value Reference Range Interpretation Comments NA (test code = 135 mmol/L 135-145 5520933807) K (test code = 4.0 mmol/L 3.5-5.0 8129398529) CL (test code = 109 mmol/L 98-108 H 2555363755) CO2 TOTAL (test code = 22 mmol/L 23-31 L 9461136609) AGAP (test code = 2-16 3694067361) BUN (test code = 12 mg/dL 7-23 4073573854) GLUCOSE (test code = 102 mg/dL 70-110 8338499759) CREATININE (test code = 1.27 mg/dL 0.60-1.25 H 5180719729) CALCIUM (test code = 8.6 mg/dL 8.6-10.6 2523183295) eGFR (test code = mL/min/1.73m2 0872777150) GILBERTO (test code = GILBERTO) Association of [...] tests). Lab Interpretation Abnormal (test code = 89672-7) [facility] 12:55:24 Test Item Value Reference Range Interpretation Comments MAGNESIUM (test code = 6642017305) 1.7 mg/dL 1.7-2.4 Lab Interpretation (test code = Normal 51663-7) [facility]2021-[facility]-01 12:55:24 Test Item Value Reference Range Interpretation Comments PHOSPHORUS (test code = 8658485515) 3.1 mg/dL 2.5-5.0 Lab Interpretation (test code = Normal 90316-7) [facility] (NA, K, CL, CO2, Glucose, BUN, Creatinine, CA)2021-07-23 13:27:55 Test Item Value Reference Range Interpretation Comments NA (test code = 134 mmol/L 135-145 L 7088408668) K (test code = 3.8 mmol/L 3.5-5.0 5113869603) CL (test code = 107 mmol/L 98-108 2885527115) CO2 TOTAL (test code = 21 mmol/L 23-31 L 4323961020) AGAP (test code = 2-16 1898601642) BUN (test code = 18 mg/dL 7-23 2679974365) GLUCOSE (test code = 120 mg/dL 70-110 H 2858082895) CREATININE (test code = 1.46 mg/dL 0.60-1.25 H 4986127045) CALCIUM (test code = 8.7 mg/dL 8.6-10.6 2177024602) eGFR (test code = mL/min/1.73m2 7404522136) GILBERTO (test code = GILBERTO) Association of [...] tests). Lab Interpretation Abnormal (test code = 30352-6) [facility]21[facility]30 13:27:55 Test Item Value Reference Range Interpretation Comments MAGNESIUM (test code = 4490434143) 1.9 mg/dL 1.7-2.4 Lab Interpretation (test code = Normal 19438-6) [facility] 13:27:55 Test Item Value Reference Range Interpretation Comments PHOSPHORUS (test code = 6743397818) 3.5 mg/dL 2.5-5.0 Lab Interpretation (test code = Normal 43420-6) [facility] with [id number] 13:06:55 Test Item Value Reference Range Interpretation [...] RDW-SD (test code = 47.8 fL 38.5-51.6 08522-9) RDW-CV (test code = 14.4 % 12.1-15.4 788-0) PLT (test code = See_Comment [Automated 777-3) message] The sy stem which generated this result transmitted reference range : 150 - 328 10*3/ ?L. The reference r meredith was not used to interpret this result as normal/abnormal . MPV (test code = 9.4 fL 9.8-13.0 L 40260-6) NRBC/100 WBC (test See_Comment [Automat ed code = 8170534643) message] The system which generated this result transmitted reference range : 0.0 - 10.0 /100 WBCs. The refer ence range was not u sed to interpret th is result as normal/abnormal . NRBC x10^3 (test code <0.01 See_Comment [Auto mated = 3819183519) message] The s ystem which generated this result transmitted reference range : 10*3/?L. The reference range was not used to interpret this result as normal/abnormal . GRAN MAT (NEUT) % 54.7 % (test code = 770-8) IMM GRAN % (test code 0.40 % = 7660571997) LYMPH % (test code = 33.3 % 736-9) MONO % (test code = 9.4 % 5905-5) EOS % (test code = 1.8 % 713-8) BASO % (test code = 0.4 % 706-2) GRAN MAT x10^3(ANC) 2.78 10*3/uL 1.99-6.95 (test code = 1580343899) IMM GRAN x10^3 (test <0.03 0.00-0.06 code = 1837769529) LYMPH x10^3 (test code 1.69 10*3/uL 1.09-3.23 = 731-0) MONO x10^3 (test code 0.48 10*3/uL 0.36-1.02 = 742-7) EOS x10^3 (test code = 0.09 10*3/uL 0.06-0.53 711-2) BASO x10^3 (test code <0.03 0.01-0.09 = 704-7) Lab Interpretation Abnormal (test code = 92789-2) [facility] W/AUTO [id number] 09:48:00 Test Item Value Reference Range Interpretation [...] = MX#) 0.8 k/mm3 0.1-0.8 N GLUCOSE [id number] 06:12:00 Test Item Value Reference Range Interpretation Comments GLUCOSE BEDSIDE (test 129 MG/DL 70-110 H Perfor med by certified code = GLUBED) 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 [facility] BASIC METABOLIC [id number] 05:21:00 Test Item Value Reference Range Interpretation [...] (test code = POCGLU) 92 MG/DL GLUCOSE [id number] 05:19:00 Test Item Value Reference Range Interpretation Comments GLUCOSE BEDSIDE (test 51 MG/DL 70-110 L Perfor med by certified code = GLUBED) 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 [facility] CBC W/AUTO [id number] 14:00:00 Test Item Value Reference Range Interpretation [...] MX#) 0.2 k/mm3 0.1-0.8 N CBC W/AUTO [id number] 00:07:00 Test Item Value Reference Range Interpretation [...] = LY#) 2.4 K/uL 1.0-3.8 N LIVER [id number] 16:14:00 Test Item Value Reference Range Interpretation Comments TOTAL PROTEIN (test code 7.5 GM/DL 5.0-8.0 N Per formed by = PROT) 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 [facility] ed Ctr ALBUMIN (test code = [...] 65 UNITS/L 25-125 N TAWNY) BASIC METABOLIC [id number] 16:07:00 Test Item Value Reference Range Interpretation [...] POCGLU) 96 MG/DL - XR CHEST 1 [id number] [facility] 1970 Sex: MFAX: Sabi Urias MD [phone] [place]: [place] St: PRE Name: DORA MCNEILL HOANG David FSED : 1970 Age/S: 51/M [address] [facility] Unit #: [id number] [place]: [place] [address] Phys: Sabi Urias MD Acct: [id number] Dis Date: Status: PRE ER PHONE #: Exam Date: 06/27/2021 1544 FAX #: Reason: Abdominal PainEXAMS: CPT CODE: [id number] XR CHEST 1 V 54113 PROCEDURE INFORMATION: Exam: XR Chest Exam date [...] Trnscrd Date/Time/By: 06/27/2021 (1558) : By: [email or web address] [facility] Print D/T: S: 06/27/2021 (1901) PAGE 1 Signed Report- CT ABD PELVIS [id number] 00:00:[facility] : 1970 Sex: MName: DORA MCNEILL FSED : 1970 Age/S: 51 / M [address] [facility] Unit #: [id number] Loc: [place] [address] Phys: Sabi Urias MD Acct: [id number] Dis Date: Status: REG ER PHONE #: Exam Date: 06/27/2021 1626 FAX #: Reason: pain in region of colostomy EXAMS: CPT CODE: [id number] CT ABD PELVIS W/CONT 79984 PROCEDURE INFORMATION: Exam: CT Abdomen And Pelvis [...] PAGE 1 Signed Report (CONTINUED) Name: DORA MCNEILL FSED : 1970 Age/S: 51 / M [address] [facility] Unit #: [id number] Loc: [place] [address] Phys: Sabi Urias MD Acct: [id number] Dis Date: Status: REG ER PHONE #: Exam Date: 06/27/2021 2652 FAX #: Reason: pain in region of colostomy EXAMS: CPT CODE: [id number] CT ABD PELVIS W/CONT 10984 <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 There is no evidence of associated intestinal obstruction. 2. No additional acute CT abnormalities of the abdomen or pelvis are identified. SL:131 at 1650 Reported and signed by: Marco Raman M.D. CC: Sabi Urias MD Technologist:Yecenia Carbajal, RT(R)(CT) CTDI: DLP: Trnscb Date/Time: 06/27/2021 (1649) [id number] Orig Print D/T: S: 06/27/2021 (1649) PAGE 2 Signed ReportBASIC METABOLIC PANEL (NA, K, CL, CO2, GLUCOSE, BUN, CREATININE, CA)2021-06-03 11:32:40 Test Item Value Reference Range Interpretation Comments NA (test code = 133 mmol/L 135-145 L 3385298957) K (test code = 3.7 mmol/L 3.5-5.0 1838541121) CL (test code = 108 mmol/L 98-108 3642236781) CO2 TOTAL (test code = 20 mmol/L 23-31 L 2950679669) AGAP (test code = 2-16 1270378884) BUN (test code = 11 mg/dL 7-23 2801742469) GLUCOSE (test code = 82 mg/dL 70-110 1531527331) CREATININE (test code = 0.96 mg/dL 0.60-1.25 7447221286) CALCIUM (test code = 8.6 mg/dL 8.6-10.6 5735796965) eGFR (test code = mL/min/1.73m2 2877801302) GILBERTO (test code = GILBERTO) Association of [...] tests). Lab Interpretation Abnormal (test code = 45867-4) [facility] METABOLIC PANEL (NA, K, CL, CO2, GLUCOSE, BUN, CREATININE, CA)2021-06-02 11:45:25 Test Item Value Reference Range Interpretation Comments NA (test code = 133 mmol/L 135-145 L 9702003439) K (test code = 3.7 mmol/L 3.5-5.0 2613238548) CL (test code = 111 mmol/L 98-108 H 7054975706) CO2 TOTAL (test code = 17 mmol/L 23-31 L 4933358208) AGAP (test code = 2-16 9215135347) BUN (test code = 15 mg/dL 7-23 9382896689) GLUCOSE (test code = 88 mg/dL 70-110 3100953239) CREATININE (test code = 0.96 mg/dL 0.60-1.25 0177996061) CALCIUM (test code = 8.1 mg/dL 8.6-10.6 L 0134210784) eGFR (test code = mL/min/1.73m2 6451306607) GILBERTO (test code = GILBERTO) Association of [...] tests). Lab Interpretation Abnormal (test code = 30856-6) [facility] (NA, K, CL, CO2, GLUCOSE, BUN, CREATININE, CA)2021-06-01 17:06:47 Test Item Value Reference Range Interpretation Comments NA (test code = 131 mmol/L 135-145 L 9885823355) K (test code = 3.9 mmol/L 3.5-5.0 Slight 7940153075) hemolysis CL (test code = 108 mmol/L 98-108 0418023626) CO2 TOTAL (test code 15 mmol/L 23-31 L = 8504037800) AGAP (test code = 2-16 2236390703) BUN (test code = 26 mg/dL 7-23 H Slight 0144245758) hemolysis GLUCOSE (test code = 85 mg/dL 70-110 6758599886) CREATININE (test code 1.26 mg/dL 0.60-1.25 H = 3169068071) CALCIUM (test code = 8.1 mg/dL 8.6-10.6 L 1712658713) eGFR (test code = mL/min/1.73m2 3295634276) GILBERTO (test code = GILBERTO) Association of [...] tests). Lab Interpretation Abnormal (test code = 66746-0) [facility] Whole [id number] 05:45:35 Test Item Value Reference Range Interpretation Comments LACTIC ACID (test code = 0.67 mmol/L 0.50-2.20 6961531333) Lab Interpretation (test code = Normal 89433-4) [facility] [id number] 23:44:55 Test Item Value Reference Interpretation Comments Range TROPONIN I (test 0.004 ng/mL See_Comment [Automated code = [id number]) message] The system which generated this result [...] biotin. Lab Interpretation Normal (test code = 60550-1) [facility] 23:33:28 Test Item Value Reference Range Interpretation Comments LIPASE (test code = 8429207480) 386 U/L 0-220 H Lab Interpretation (test code = Abnormal 12144-7) [facility]OL[facility] (17615)2021-05-31 23:33:28 Test Item Value Reference Range Interpretation Comments NA (test code = 128 mmol/L 135-145 L 1155720830) K (test code = 4.2 mmol/L 3.5-5.0 1708887703) CL (test code = 102 mmol/L 98-108 7356362524) CO2 TOTAL (test code = 13 mmol/L 23-31 L 7183243104) AGAP (test code = 2-16 8452515446) BUN (test code = 47 mg/dL 7-23 H 5739365189) GLUCOSE (test code = 106 mg/dL 70-110 5619501055) CREATININE (test code = 2.38 mg/dL 0.60-1.25 H 3801718332) TOTAL BILI (test code = 0.6 mg/dL 0.1-1.7 0553134731) CALCIUM (test code = 9.5 mg/dL 8.6-10.6 3833914371) T PROTEIN (test code = 7.3 g/dL 6.3-8.2 9062282775) ALBUMIN (test code = 4.6 g/dL 3.5-5.0 9264014109) ALK PHOS (test code = 110 U/L 34-122 6763694810) ALTv (test code = 29 U/L 5-50 1742-6) AST(SGOT) (test code = 33 U/L 13-40 3906402568) eGFR (test code = mL/min/1.73m2 7640904439) GILBERTO (test code = GILBERTO) Association of [...] tests). Lab Interpretation Abnormal (test code = 87735-9) [facility] WITH [id number] 22:57:06 Test Item Value Reference Range Interpretation Comments WBC (test code = See_Comment [Automated 7067-2) message] The sy stem which generated this result transmitted reference range : 4.20 - 10.70 10*3/?L. The reference range was not used to interpret this result as normal/abnormal . RBC (test code = See_Comment [Automated 961-1) message] The sy stem which generated this [...] RDW-SD (test code = 43.2 fL 38.5-51.6 44485-5) RDW-CV (test code = 13.7 % 12.1-15.4 788-0) PLT (test code = See_Comment [Automated 777-3) message] The sy stem which generated this result transmitted reference range : 150 - 328 10*3/ ?L. The reference r meredith was not used to interpret this result as normal/abnormal . MPV (test code = 10.1 fL 9.8-13.0 98416-8) NRBC/100 WBC (test See_Comment [Automat ed code = 1556825819) message] The system which generated this result transmitted reference range : 0.0 - 10.0 /100 WBCs. The refer ence range was not u sed to interpret th is result as normal/abnormal . NRBC x10^3 (test code <0.01 See_Comment [Auto mated = 0709289202) message] The s ystem which generated this result transmitted reference range : 10*3/?L. The reference range was not used to interpret this result as normal/abnormal . GRAN MAT (NEUT) % 68.1 % (test code = 770-8) IMM GRAN % (test code 0.40 % = 3448350670) LYMPH % (test code = 21.9 % 736-9) MONO % (test code = 8.9 % 5905-5) EOS % (test code = 0.3 % 713-8) BASO % (test code = 0.4 % 706-2) GRAN MAT x10^3(ANC) 5.38 10*3/uL 1.99-6.95 (test code = 3439425142) IMM GRAN x10^3 (test 0.03 10*3/uL 0.00-0.06 code = 5252694555) LYMPH x10^3 (test code 1.73 10*3/uL 1.09-3.23 = 731-0) MONO x10^3 (test code 0.70 10*3/uL 0.36-1.02 = 742-7) EOS x10^3 (test code = <0.03 0.06-0.53 L 711-2) BASO x10^3 (test code 0.03 10*3/uL 0.01-0.09 = 704-7) Lab Interpretation Abnormal (test code = 55879-1) [facility] Test Item Value Reference Range Interpretation Comments MAGNESIUM (test code = 0148108888) 2.0 mg/dL 1.7-2.4 Lab Interpretation (test code = Normal 71465-1) [facility] 09:49:03 Test Item Value Reference Range Interpretation Comments PHOSPHORUS (test code = 4079746099) 4.0 mg/dL 2.5-5.0 Lab Interpretation (test code = Normal 53044-1) [facility] (NA, K, CL, CO2, GLUCOSE, BUN, CREATININE, CA)2021-05-21 09:49:03 Test Item Value Reference Range Interpretation Comments NA (test code = 132 mmol/L 135-145 L 0859229373) K (test code = 4.3 mmol/L 3.5-5.0 4902401487) CL (test code = 105 mmol/L 98-108 0702113233) CO2 TOTAL (test code = 21 mmol/L 23-31 L 5836857342) AGAP (test code = 2-16 1858675090) BUN (test code = 25 mg/dL 7-23 H 5695181655) GLUCOSE (test code = 98 mg/dL 70-110 9848458846) CREATININE (test code = 1.20 mg/dL 0.60-1.25 6924741933) CALCIUM (test code = 8.4 mg/dL 8.6-10.6 L 6206009648) eGFR (test code = mL/min/1.73m2 2293721222) GILBERTO (test code = GILBERTO) Association of [...] tests). Lab Interpretation Abnormal (test code = 16496-1) [facility] with Naotnogowlya0899-73-65 09:22:22 Test Item Value Reference Range Interpretation Comments WBC (test code = See_Comment [Automated 2407-2) message] The sy stem which generated this result transmitted reference range : 4.20 - 10.70 10*3/?L. The reference range was not used to interpret this result as normal/abnormal . RBC (test code = See_Comment L [Automated 725-8) message] The sy stem which generated this [...] RDW-SD (test code = 45.6 fL 38.5-51.6 66309-9) RDW-CV (test code = 13.7 % 12.1-15.4 788-0) PLT (test code = See_Comment [Automated 777-3) message] The sy stem which generated this result transmitted reference range : 150 - 328 10*3/ ?L. The reference r meredith was not used to interpret this result as normal/abnormal . MPV (test code = 9.7 fL 9.8-13.0 L 49146-7) NRBC/100 WBC (test See_Comment [Automat ed code = 0182469318) message] The system which generated this result transmitted reference range : 0.0 - 10.0 /100 WBCs. The refer ence range was not u sed to interpret th is result as normal/abnormal . NRBC x10^3 (test code <0.01 See_Comment [Auto mated = 9167253801) message] The s ystem which generated this result transmitted reference range : 10*3/?L. The reference range was not used to interpret this result as normal/abnormal . GRAN MAT (NEUT) % 49.4 % (test code = 770-8) IMM GRAN % (test code 0.60 % = 9885012249) LYMPH % (test code = 35.2 % 736-9) MONO % (test code = 11.9 % 5905-5) EOS % (test code = 2.1 % 713-8) BASO % (test code = 0.8 % 706-2) GRAN MAT x10^3(ANC) 2.33 10*3/uL 1.99-6.95 (test code = 9442682837) IMM GRAN x10^3 (test 0.03 10*3/uL 0.00-0.06 code = 8311889348) LYMPH x10^3 (test code 1.66 10*3/uL 1.09-3.23 = 731-0) MONO x10^3 (test code 0.56 10*3/uL 0.36-1.02 = 742-7) EOS x10^3 (test code = 0.10 10*3/uL 0.06-0.53 711-2) BASO x10^3 (test code 0.04 10*3/uL 0.01-0.09 = 704-7) Lab Interpretation Abnormal (test code = 81859-2) [facility] Test Item Value Reference Range Interpretation Comments LIPASE (test code = 3301221683) 307 U/L 0-220 H Lab Interpretation (test code = Abnormal 08035-3) [facility] (60610)2021-05-20 20:21:19 Test Item Value Reference Range Interpretation Comments NA (test code = 132 mmol/L 135-145 L 3956431731) K (test code = 4.3 mmol/L 3.5-5.0 6745954312) CL (test code = 100 mmol/L 98-108 7717225090) CO2 TOTAL (test code = 18 mmol/L 23-31 L 0090515093) AGAP (test code = 2-16 3993285829) BUN (test code = 32 mg/dL 7-23 H 4517309320) GLUCOSE (test code = 100 mg/dL 70-110 8042080260) CREATININE (test code = 1.76 mg/dL 0.60-1.25 H 7823224725) TOTAL BILI (test code = 0.7 mg/dL 0.1-1.0 9771903023) CALCIUM (test code = 9.6 mg/dL 8.6-10.6 1836105963) T PROTEIN (test code = 7.5 g/dL 6.3-8.2 8459130203) ALBUMIN (test code = 4.7 g/dL 3.5-5.0 2880225510) ALK PHOS (test code = 104 U/L 34-122 1057982004) ALTv (test code = 23 U/L 5-50 1742-6) AST(SGOT) (test code = 29 U/L 13-40 1253725968) eGFR (test code = mL/min/1.73m2 0386783353) GILBERTO (test code = GILBERTO) Association of [...] tests). Lab Interpretation Abnormal (test code = 81222-0) [facility] WITH [id number] 20:15:39 Test Item Value Reference Range Interpretation Comments WBC (test code = See_Comment [Automated message] 6690-2) The system [employer] generated this result transmitted ref erence range: 4.20 - 1 0.70 10*3/?L. The re ference range was not u sed to interpret this result as normal/abnor mal. RBC (test code = See_Comment [Automated message] 789-8) The system [employer] generated this result transmitted ref erence range: [...] RDW-SD (test code 44.8 fL 38.5-51.6 = 80293-3) RDW-CV (test code 13.7 % 12.1-15.4 = 788-0) PLT (test code = See_Comment [Automated message] 777-3) The system whic h generated this result transmitted ref erence range: 150 - 32 8 10*3/?L. The re ference range was not u sed to interpret this result as normal/abnor mal. MPV (test code = 9.8 fL 9.8-13.0 71812-2) NRBC/100 WBC (test See_Comment [Automat ed message] code = 3741146794) The syste m which generated this result transmitted ref erence range: 0.0 - 10 .0 /100 WBCs. The refer ence range was not u sed to interpret this result as normal/abnor mal. NRBC x10^3 (test <0.01 See_Comment [Automated message] code = 9955262233) The syste m which generated this result transmitted ref erence range: 10*3/?L. The reference range was not used to interpr et this result as normal/abnormal . GRAN MAT (NEUT) % 55.9 % (test code = 770-8) IMM GRAN % (test 0.40 % code = 5468945691) LYMPH % (test code 32.5 % = 736-9) MONO % (test code 9.4 % = 5905-5) EOS % (test code = 1.2 % 713-8) BASO % (test code 0.6 % = 706-2) GRAN MAT 3.87 10*3/uL 1.99-6.95 x10^3(ANC) (test code = 9476728489) IMM GRAN x10^3 0.03 10*3/uL 0.00-0.06 (test code = 0101827381) LYMPH x10^3 (test 2.25 10*3/uL 1.09-3.23 code = 731-0) MONO x10^3 (test 0.65 10*3/uL 0.36-1.02 code = 742-7) EOS x10^3 (test 0.08 10*3/uL 0.06-0.53 code = 711-2) BASO x10^3 (test 0.04 10*3/uL 0.01-0.09 code = 704-7) [facility] Whole Xecrv6586-68-86 20:07:57 Test Item Value Reference Range Interpretation Comments LACTIC ACID (test code = 1.81 mmol/L 0.50-2.20 1430534658) Lab Interpretation (test code = Normal 95605-7) [facility] (NA, K, CL, CO2, GLUCOSE, BUN, CREATININE, CA)2021-05-08 10:32:35 Test Item Value Reference Range Interpretation Comments NA (test code = 135 mmol/L 135-145 4130183459) K (test code = 4.2 mmol/L 3.5-5.0 7940218035) CL (test code = 106 mmol/L 98-108 6000993482) CO2 TOTAL (test code 23 mmol/L 23-31 = 0685524868) AGAP (test code = 2-16 9930275108) BUN (test code = 22 mg/dL 7-23 3520413250) GLUCOSE (test code = 87 mg/dL 70-110 3353304167) CREATININE (test code 1.21 mg/dL 0.60-1.25 = 9949957037) CALCIUM (test code = 8.7 mg/dL 8.6-10.6 3499721155) eGFR (test code = mL/min/1.73m2 9856495519) GILBERTO (test code = GILBERTO) Association of [...] or urine or abnormalities in imaging tests). [facility] Metabolic Panel (NA, K, CL, CO2, GLUCOSE, BUN, CREATININE, CA)2021-05-08 10:32:35 Test Item Value Reference Range Interpretation Comments NA (test code = 135 mmol/L 135-145 1035602317) K (test code = 4.2 mmol/L 3.5-5.0 5160658730) CL (test code = 106 mmol/L 98-108 3032157401) CO2 TOTAL (test code 23 mmol/L 23-31 = 8563136919) AGAP (test code = 2-16 6032263248) BUN (test code = 22 mg/dL 7-23 5202326242) GLUCOSE (test code = 87 mg/dL 70-110 4623238045) CREATININE (test code 1.21 mg/dL 0.60-1.25 = 1230301037) CALCIUM (test code = 8.7 mg/dL 8.6-10.6 2155320710) eGFR (test code = mL/min/1.73m2 1230467703) GILBERTO (test code = GILBERTO) Association of [...] or urine or abnormalities in imaging tests). [facility] with Msnlskrhyurw3014-39-67 10:12:52 Test Item Value Reference Range Interpretation [...] RDW-SD (test code = 48.4 fL 38.5-51.6 26468-6) RDW-CV (test code = 14.0 % 12.1-15.4 788-0) PLT (test code = See_Comment [Automated 777-3) message] The sy stem which generated this result transmitted reference range : 150 - 328 10*3/ ?L. The reference r meredith was not used to interpret this result as normal/abnormal . MPV (test code = 9.6 fL 9.8-13.0 L 56203-5) NRBC/100 WBC (test See_Comment [Automat ed code = 6233557749) message] The system which generated this result transmitted reference range : 0.0 - 10.0 /100 WBCs. The refer ence range was not u sed to interpret th is result as normal/abnormal . NRBC x10^3 (test code <0.01 See_Comment [Auto mated = 3488360612) message] The s ystem which generated this result transmitted reference range : 10*3/?L. The reference range was not used to interpret this result as normal/abnormal . GRAN MAT (NEUT) % 55.6 % (test code = 770-8) IMM GRAN % (test code 0.20 % = 7835330010) LYMPH % (test code = 31.5 % 736-9) MONO % (test code = 9.9 % 5905-5) EOS % (test code = 2.0 % 713-8) BASO % (test code = 0.8 % 706-2) GRAN MAT x10^3(ANC) 2.76 10*3/uL 1.99-6.95 (test code = 6192750309) IMM GRAN x10^3 (test <0.03 0.00-0.06 code = 5264657901) LYMPH x10^3 (test code 1.56 10*3/uL 1.09-3.23 = 731-0) MONO x10^3 (test code 0.49 10*3/uL 0.36-1.02 = 742-7) EOS x10^3 (test code = 0.10 10*3/uL 0.06-0.53 711-2) BASO x10^3 (test code 0.04 10*3/uL 0.01-0.09 = 704-7) Lab Interpretation Abnormal (test code = 55293-6) [facility] with Cmdxgepfomes8535-29-05 10:12:52 Test Item Value Reference Range Interpretation [...] RDW-SD (test code = 48.4 fL 38.5-51.6 07341-0) RDW-CV (test code = 14.0 % 12.1-15.4 788-0) PLT (test code = See_Comment [Automated 777-3) message] The sy stem which generated this result transmitted reference range : 150 - 328 10*3/ ?L. The reference r meredith was not used to interpret this result as normal/abnormal . MPV (test code = 9.6 fL 9.8-13.0 L 30538-1) NRBC/100 WBC (test See_Comment [Automat ed code = 4771893030) message] The system which generated this result transmitted reference range : 0.0 - 10.0 /100 WBCs. The refer ence range was not u sed to interpret th is result as normal/abnormal . NRBC x10^3 (test code <0.01 See_Comment [Auto mated = 1917266875) message] The s ystem which generated this result transmitted reference range : 10*3/?L. The reference range was not used to interpret this result as normal/abnormal . GRAN MAT (NEUT) % 55.6 % (test code = 770-8) IMM GRAN % (test code 0.20 % = 8832614163) LYMPH % (test code = 31.5 % 736-9) MONO % (test code = 9.9 % 5905-5) EOS % (test code = 2.0 % 713-8) BASO % (test code = 0.8 % 706-2) GRAN MAT x10^3(ANC) 2.76 10*3/uL 1.99-6.95 (test code = 1666898353) IMM GRAN x10^3 (test <0.03 0.00-0.06 code = 9501643729) LYMPH x10^3 (test code 1.56 10*3/uL 1.09-3.23 = 731-0) MONO x10^3 (test code 0.49 10*3/uL 0.36-1.02 = 742-7) EOS x10^3 (test code = 0.10 10*3/uL 0.06-0.53 711-2) BASO x10^3 (test code 0.04 10*3/uL 0.01-0.09 = 704-7) Lab Interpretation Abnormal (test code = 10066-8) [facility] (NA, K, CL, CO2, GLUCOSE, BUN, CREATININE, CA)2021-05-08 01:11:57 Test Item Value Reference Range Interpretation Comments NA (test code = 134 mmol/L 135-145 L 0899871354) K (test code = 4.7 mmol/L 3.5-5.0 1147148448) CL (test code = 100 mmol/L 98-108 7462205550) CO2 TOTAL (test code = 24 mmol/L 23-31 0358445233) AGAP (test code = 2-16 7035679282) BUN (test code = 27 mg/dL 7-23 H 9634500690) GLUCOSE (test code = 94 mg/dL 70-110 4076148157) CREATININE (test code = 1.31 mg/dL 0.60-1.25 H 4844583863) CALCIUM (test code = 9.5 mg/dL 8.6-10.6 9951445657) eGFR (test code = mL/min/1.73m2 2454427361) GILBERTO (test code = GILBERTO) Association of [...] tests). Lab Interpretation Abnormal (test code = 55662-6) [facility]180[facility] (ALB,T.PRO,BILI T,BU/BC,ALT,AST,ALK PHOS)2021-05-08 01:11:57 Test Item Value Reference Range Interpretation Comments TOTAL BILI (test code = 9161609270) 0.8 mg/dL 0.1-1.1 BILI UNCON (test code = 1164396748) 0.2 mg/dL 0.1-1.1 BILI CONJ (test code = 3566136523) 0.0 mg/dL 0.0-0.3 T PROTEIN (test code = 5199788594) 7.1 g/dL 6.3-8.2 ALBUMIN (test code = 9426401094) 4.4 g/dL 3.5-5.0 ALK PHOS (test code = 5528345592) 88 U/L 34-122 ALTv (test code = 1742-6) 40 U/L 5-50 AST(SGOT) (test code = 7491902937) 38 U/L 13-40 Lab Interpretation (test code = Normal 57421-4) [facility] METABOLIC PANEL (NA, K, CL, CO2, GLUCOSE, BUN, CREATININE, CA)2021-05-08 01:11:57 Test Item Value Reference Range Interpretation Comments NA (test code = 134 mmol/L 135-145 L 2646153893) K (test code = 4.7 mmol/L 3.5-5.0 8589058753) CL (test code = 100 mmol/L 98-108 8003917411) CO2 TOTAL (test code = 24 mmol/L 23-31 3301091984) AGAP (test code = 2-16 9544394090) BUN (test code = 27 mg/dL 7-23 H 8072351112) GLUCOSE (test code = 94 mg/dL 70-110 2954753806) CREATININE (test code = 1.31 mg/dL 0.60-1.25 H 7086718811) CALCIUM (test code = 9.5 mg/dL 8.6-10.6 4991716669) eGFR (test code = mL/min/1.73m2 3242179850) GILBERTO (test code = GILBERTO) Association of [...] tests). Lab Interpretation Abnormal (test code = 48994-6) [facility]92029[facility] (ALB,T.PRO,BILI T,BU/BC,ALT,AST,ALK PHOS)2021-05-08 01:11:57 Test Item Value Reference Range Interpretation Comments TOTAL BILI (test code = 8790205869) 0.8 mg/dL 0.1-1.1 BILI UNCON (test code = 6613644591) 0.2 mg/dL 0.1-1.1 BILI CONJ (test code = 0295185210) 0.0 mg/dL 0.0-0.3 T PROTEIN (test code = 3955057980) 7.1 g/dL 6.3-8.2 ALBUMIN (test code = 5392915577) 4.4 g/dL 3.5-5.0 ALK PHOS (test code = 4081926384) 88 U/L 34-122 ALTv (test code = 1742-6) 40 U/L 5-50 AST(SGOT) (test code = 9713963619) 38 U/L 13-40 Lab Interpretation (test code = Normal 76558-3) [facility] WITH [id number] 00:59:56 Test Item Value Reference Range Interpretation [...] RDW-SD (test code = 46.9 fL 38.5-51.6 69002-1) RDW-CV (test code = 13.9 % 12.1-15.4 788-0) PLT (test code = See_Comment [Automated 777-3) message] The sy stem which generated this result transmitted reference range : 150 - 328 10*3/ ?L. The reference r meredith was not used to interpret this result as normal/abnormal . MPV (test code = 10.0 fL 9.8-13.0 08648-9) NRBC/100 WBC (test See_Comment [Automat ed code = 9510343090) message] The system which generated this result transmitted reference range : 0.0 - 10.0 /100 WBCs. The refer ence range was not u sed to interpret th is result as normal/abnormal . NRBC x10^3 (test code <0.01 See_Comment [Auto mated = 4801185963) message] The s ystem which generated this result transmitted reference range : 10*3/?L. The reference range was not used to interpret this result as normal/abnormal . GRAN MAT (NEUT) % 53.9 % (test code = 770-8) IMM GRAN % (test code 0.30 % = 8089783347) LYMPH % (test code = 32.0 % 736-9) MONO % (test code = 11.6 % 5905-5) EOS % (test code = 1.6 % 713-8) BASO % (test code = 0.6 % 706-2) GRAN MAT x10^3(ANC) 3.67 10*3/uL 1.99-6.95 (test code = 3843580474) IMM GRAN x10^3 (test <0.03 0.00-0.06 code = 9995047198) LYMPH x10^3 (test code 2.18 10*3/uL 1.09-3.23 = 731-0) MONO x10^3 (test code 0.79 10*3/uL 0.36-1.02 = 742-7) EOS x10^3 (test code = 0.11 10*3/uL 0.06-0.53 711-2) BASO x10^3 (test code 0.04 10*3/uL 0.01-0.09 = 704-7) Lab Interpretation Abnormal (test code = 59616-2) [facility] WITH [id number] 00:59:56 Test Item Value Reference Range Interpretation [...] RDW-SD (test code = 46.9 fL 38.5-51.6 92888-7) RDW-CV (test code = 13.9 % 12.1-15.4 788-0) PLT (test code = See_Comment [Automated 777-3) message] The sy stem which generated this result transmitted reference range : 150 - 328 10*3/ ?L. The reference r meredith was not used to interpret this result as normal/abnormal . MPV (test code = 10.0 fL 9.8-13.0 88751-4) NRBC/100 WBC (test See_Comment [Automat ed code = 6816556406) message] The system which generated this result transmitted reference range : 0.0 - 10.0 /100 WBCs. The refer ence range was not u sed to interpret th is result as normal/abnormal . NRBC x10^3 (test code <0.01 See_Comment [Auto mated = 2255772132) message] The s ystem which generated this result transmitted reference range : 10*3/?L. The reference range was not used to interpret this result as normal/abnormal . GRAN MAT (NEUT) % 53.9 % (test code = 770-8) IMM GRAN % (test code 0.30 % = 8827705155) LYMPH % (test code = 32.0 % 736-9) MONO % (test code = 11.6 % 5905-5) EOS % (test code = 1.6 % 713-8) BASO % (test code = 0.6 % 706-2) GRAN MAT x10^3(ANC) 3.67 10*3/uL 1.99-6.95 (test code = 8737056379) IMM GRAN x10^3 (test <0.03 0.00-0.06 code = 8650876384) LYMPH x10^3 (test code 2.18 10*3/uL 1.09-3.23 = 731-0) MONO x10^3 (test code 0.79 10*3/uL 0.36-1.02 = 742-7) EOS x10^3 (test code = 0.11 10*3/uL 0.06-0.53 711-2) BASO x10^3 (test code 0.04 10*3/uL 0.01-0.09 = 704-7) Lab Interpretation Abnormal (test code = 67339-1) [facility] W/AUTO [id number] 09:20:00 Test Item Value Reference Range Interpretation [...] (test code NO = MDIFF) CBC W/AUTO [id number] 08:59:00 Test Item Value Reference Range Interpretation [...] REQUIRED (test code = MDIFF) BASIC METABOLIC [id number] 08:21:00 Test Item Value Reference Range Interpretation [...] 8.4 mg/dL 8.0-10.5 N CA) BASIC METABOLIC [id number] 08:34:00 Test Item Value Reference Range Interpretation [...] 8.4 mg/dL 8.0-10.5 N CA) CBC W/AUTO [id number] 07:41:00 Test Item Value Reference Range Interpretation [...] = MDIFF) UA RFLX MICR CULT IF [id number] 10:10:00 Test Item Value Reference Range Interpretation [...] Pain Temperature > 100.4 FSpecimen Description: [facility] METABOLIC [id number] 04:13:00 Test Item Value Reference Range Interpretation [...] mg/dL 8.0-10.5 N CA) Coronavirus 2018 nCoV Svwbnry6360-02-44 22:03:00 Test Item Value Reference Range Interpretation Comments Coronavirus 2019 Negative Negative Performed b y certified nCoV Bedside (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 Negative result s do not preclude RYPO-CpU-3rdore tion and should not be u sed as the sole basis forp atient management deci sions. Negative result s should beconsidered in the context of a patient's recent exposures,histo ry, presence of clinical sig ns and symptoms consis tentwith COVID-19. CBC W/AUTO [id number] 21:11:00 Test Item Value Reference Range Interpretation [...] MX#) 0.6 k/mm3 0.1-0.8 N BASIC METABOLIC [id number] 19:00:00 Test Item Value Reference Range Interpretation [...] POCGLU) 92 MG/DL - CT ABD PELVIS [id number]/[id number] [facility] 1970 Sex: MName: DORA MCNEILL FSED : 1970 Age/S: 51 / M [address] [facility] Unit #: [id number] Loc: [place] [address] Phys: Montserrat Benoit MD Acct: [id number] Dis Date: Status: REG ERPHONE #: Exam Date: 04/28/20211913 FAX #: Reason: epigastric and LLQ pain, R-sided colostomy EXAMS:CPT CODE: [id number] CT ABD PELVIS W/CONT 59082 PROCEDURE INFORMATION: Exam: CT Abdomen And Pelvis [...] PAGE 1 Signed Report (CONTINUED) Name: DORA MCNEILL FSED : 1970 Age/S: 51/ M [address] [facility] Unit #: [id number] Loc: [place] [address] Phys: Montserrat Benoit MD Acct: [id number] Dis Date: Status: REG ER PHONE #: Exam Date: 04/28/2021 1914 FAX #: Reason: epigastric and LLQ pain, R-sided colostomy EXAMS: CPT CODE: [id number] CT ABD PELVIS W/CONT 03389 <Continued> Reproductive: Unremarkable as visualized. Bones/joints: Unremarkable. No acute fracture. Soft tissues: Unremarkable. IMPRESSION: 1. 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 2. Mild long segment bowel wall thickening/mucosal prominence compatible with an enteritis. No evidence for obstruction. at 1955 Reported and signed by: Hector Nichols M.D. CC: Montesrrat Benoit MD Technologist:Stephanie Albrecht RT(R)(CT) CTDI: DLP: Trnscb Date/Time: 04/28/2021 (1955) t.FLEXR.KWL Orig Print D/T: S: 04/28/2021 (1955) PAGE 2 Signed ReportBasic Metabolic Panel (NA, K, CL, CO2, GLUCOSE, BUN, CREATININE, CA)2020-08-23 10:29:00 Test Item Value Reference Range Interpretation Comments NA (test code = 139 mmol/L 135-145 9929139837) K (test code = 4.0 mmol/L 3.5-5 5132019640) CL (test code = 108 mmol/L 98-108 3082184964) CO2 TOTAL (test code = 22 mmol/L 23-31 L 1089445858) AGAP (test code = 2-16 9187438625) BUN (test code = 25 mg/dL 7-23 H 1711457522) GLUCOSE (test code = 91 mg/dL 70-110 0547613565) CREATININE (test code = 1.14 mg/dL 0.6-1.25 7095579208) CALCIUM (test code = 8.9 mg/dL 8.6-10.6 1167659406) eGFR Calculation mL/min/1.73m2 (Non-) (test code = 5168298897) eGFR Calculation mL/min/1.73m2 () (test code = 6861346864) GILBERTO (test code = GILBERTO) Association of [...] tests). Lab Interpretation Abnormal (test code = 50416-4) [id number] 10:13:00 Test Item Value Reference Range Interpretation Comments WBC (test code = 6690-2) See_Comment [A utomated message] The system [employer] generated this result transmit dain reference range : 4.20 - 10.70 10*3/?L. The reference range was not used to interpret this result as normal/abnormal . RBC (test code = 789-8) See_Comment L [Au tomated message] The system [employer] generated this result transmit dain reference range [...] 777-3) See_Comment [Au tomated message] The system [employer] generated this result transmit dain reference range : 150 - 328 10*3/?L. The reference range was not used to interpret this result as normal/abnormal . MPV (test code = 9.0 fL 9.8-13 L 58792-9) RDW-CV (test code = 18.7 % 12.1-15.4 H 788-0) RDW-SD (test code = 59.7 fL 38.5-51.6 H 63597-2) NRBC x10^3 (test code = <0.01 See_Comment [Au tomated message] [id number]) The system [employer] generated this result transmit dain reference range : 10*3/?L. The reference range was not used to interpret this result as normal/abnormal . NRBC/100 WBC (test code See_Comment [Au tomated message] = [id number]) The system [employer] generated this result transmit dain reference range : 0.0 - 10.0 /100 WBC s. The reference r mereidth was not used to interpret this result as normal/abnormal . IPF % (test code = 6819805529) Lab Interpretation (test Abnormal code = 36948-1) [facility]ID [facility]2020-08-23 00:56:00 Test Item Value Reference Range Interpretation Comments SARS-CoV-2 Rapid ID NOW Not Detected Not Detected (test code = 42032-2) GILBERTO (test code = GILBERTO) ID NOW COVID-19 Assay is an isothermal nucleic acid amplification test intended for the qualitative detection of nucleic acid from SARS-CoV-2 viral RNA in nasopharyngeal ([employer]) specimens. It is used under Emergency Use [...] indicated. Lab Interpretation Normal (test code = 32614-7) [facility] Metabolic Panel (NA, K, CL, CO2, GLUCOSE, BUN, CREATININE, [place])2020-08-22 22:36:00 Test Item Value Reference Range Interpretation Comments NA (test code = 133 mmol/L 135-145 L 1588467579) K (test code = 4.5 mmol/L 3.5-5 2573885429) CL (test code = 104 mmol/L 98-108 7326727400) CO2 TOTAL (test code = 25 mmol/L 23-31 6382619241) AGAP (test code = 2-16 9368615230) BUN (test code = 27 mg/dL 7-23 H 7515944901) GLUCOSE (test code = 94 mg/dL 70-110 2400209746) CREATININE (test code = 1.33 mg/dL 0.6-1.25 H 5001068111) CALCIUM (test code = 9.5 mg/dL 8.6-10.6 7850030356) eGFR Calculation mL/min/1.73m2 (Non-) (test code = 3902186941) eGFR Calculation mL/min/1.73m2 () (test code = 3913053565) GILBERTO (test code = GILBERTO) Association of [...] tests). Lab Interpretation Abnormal (test code = 51711-0) [facility] (ALB, T.PRO, BILI T, BU/BC, ALT, AST, ALK PHOS)2020-08-22 22:36:00 Test Item Value Reference Range Interpretation Comments TOTAL BILI (test code = 0199014187) 0.4 mg/dL 0.1-1.1 BILI UNCON (test code = 6714921133) 0.1 mg/dL 0.1-1.1 BILI CONJ (test code = 8880635725) 0.0 mg/dL 0-0.3 T PROTEIN (test code = 6162621318) 6.8 g/dL 6.3-8.2 ALBUMIN (test code = 6113437894) 4.0 g/dL 3.5-5 ALK PHOS (test code = 2290839051) 78 U/L 34-122 ALTv (test code = 1742-6) 35 U/L 5-50 AST(SGOT) (test code = 8461023635) 29 U/L 13-40 Lab Interpretation (test code = Normal 58742-1) [facility] [id number] 22:15:00 Test Item Value Reference Range Interpretation [...] (test code = 60.6 fL 38.5-51.6 H 17287-5) RDW-CV (test code = 19.0 % 12.1-15.4 H 788-0) PLT (test code = See_Comment [Automated 777-3) message] The sy stem which generated this result transmitted reference range : 150 - 328 10*3/ ?L. The reference r meredith was not used to interpret this result as normal/abnormal . MPV (test code = 9.3 fL 9.8-13 L 87012-7) NRBC/100 WBC (test See_Comment [Automat ed code = 4815568968) message] The system which generated this result transmitted reference range : 0.0 - 10.0 /100 WBCs. The refer ence range was not u sed to interpret th is result as normal/abnormal . NRBC x10^3 (test code <0.01 See_Comment [Auto mated = 2456501388) message] The s ystem which generated this result transmitted reference range : 10*3/?L. The reference range was not used to interpret this result as normal/abnormal . GRAN MAT (NEUT) % 58.6 % (test code = 770-8) IMM GRAN % (test code 0.60 % = 4225209081) LYMPH % (test code = 28.2 % 736-9) MONO % (test code = 9.5 % 5905-5) EOS % (test code = 2.4 % 713-8) BASO % (test code = 0.7 % 706-2) GRAN MAT x10^3(ANC) 3.14 10*3/uL 1.99-6.95 (test code = 6278149078) IMM GRAN x10^3 (test 0.03 10*3/uL 0-0.06 code = 2290771093) LYMPH x10^3 (test code 1.51 10*3/uL 1.09-3.23 = 731-0) MONO x10^3 (test code 0.51 10*3/uL 0.36-1.02 = 742-7) EOS x10^3 (test code = 0.13 10*3/uL 0.06-0.53 711-2) BASO x10^3 (test code 0.04 10*3/uL 0.01-0.09 = 704-7) Lab Interpretation Abnormal (test code = 80271-7) [facility] W [id number] 00:47:10Impression: 1. Patent aerodigestive tract.2. No discrete [...] glands are normal. Thyroid gland is unremarkable. Hims Manager spaces are normal. Buccal spaces are normal. [...] submandibular glands are normal. Thyroid gland is unremarkable.Hims Manager spaces are normal. Buccal spaces are normal. [...] or abscess is identified.RL: [id number] of Report [facility] (ID NOW RAPID TESTING)2020-07-09 23:23:00 Test Item Value Reference Range Interpretation Comments SARS-CoV-2 Rapid ID NOW Not Detected Not Detected (test code = 32149-3) GILBERTO (test code = GILBERTO) ID NOW COVID-19 Assay is an isothermal nucleic acid amplification test intended for the qualitative detection of nucleic acid from SARS-CoV-2 viral RNA in nasopharyngeal ([employer]) specimens. It is used under Emergency Use [...] indicated. Lab Interpretation Normal (test code = 11352-5) [facility] AllenUrinalysis2020-[facility]-16 23:21:00 Test Item Value Reference Range Interpretation Comments APPEARANCE (test code = Clear Clear 1098927325) COLOR (test code = Yellow Yellow 8855247140) PH (test code = 4.8-8.0 3449124512) SP GRAVITY (test code = 1.003-1.030 3120922246) GLU U QUAL (test code = Normal Normal 7306352030) BLOOD (test code = Negative Negative 2430597794) KETONES (test code = Negative Negative 3617044231) PROTEIN (test code = 30 mg/dL Negative A 2887-8) UROBILIN (test code = Normal Normal 6333791326) BILIRUBIN (test code = Negative Negative 1636896287) NITRITE (test code = Negative Negative 9124614098) LEUK ROGER (test code = Negative Negative 7016100798) RBC/HPF (test code = <1 See_Comment [Autom ated message] 9545034139) The system [employer] generated this result transmitted ref erence range: 0 - 3 HP F. The reference range was not used to int erpret this result as normal/abnormal . WBC/HPF (test code = See_Comment [Autom ated message] 2548572582) The system [employer] generated this result transmitted ref erence range: 0 - 5 HP F. The reference range was not used to int erpret this result as normal/abnormal . BACTERIA (test code = Negative Negative 5558558249) MUCOUS (test code = Moderate Negative LPF A 4031127401) HYAL CAST (test code = See_Comment H [Aut omated message] 4477850476) The system [employer] generated this result transmitted ref erence range: <=2 LPF. The reference range was not used to int erpret this result as normal/abnormal . Lab Interpretation (test Abnormal code = 74398-1) [facility] Metabolic Panel (NA, K, CL, CO2, GLUCOSE, BUN, CREATININE, [place])2020-07-09 23:20:00 Test Item Value Reference Range Interpretation Comments NA (test code = 135 mmol/L 135-145 8770982398) K (test code = 3.9 mmol/L 3.5-5 1837643586) CL (test code = 107 mmol/L 98-108 0717568128) CO2 TOTAL (test code = 20 mmol/L 23-31 L 3120811320) AGAP (test code = 2-16 6703208370) BUN (test code = 27 mg/dL 7-23 H 6379269738) GLUCOSE (test code = 86 mg/dL 70-110 4155701159) CREATININE (test code = 1.11 mg/dL 0.6-1.25 6152776581) CALCIUM (test code = 9.0 mg/dL 8.6-10.6 9864730742) eGFR Calculation mL/min/1.73m2 (Non-) (test code = 3079319071) eGFR Calculation mL/min/1.73m2 () (test code = 6468015280) GILBERTO (test code = GILBERTO) Association of [...] tests). Lab Interpretation Abnormal (test code = 49540-4) [facility] FOR GROUP [id number] 23:11:00 Test Item Value Reference Range Interpretation Comments Streptococcus pyogenes (group A) Negative Negative antigen (test code = 84862-9) Lab Interpretation (test code = Normal 60925-4) [facility] with Ncbnvfxesole0384-44-20 23:02:00 Test Item Value Reference Range Interpretation [...] (test code = 55.5 fL 38.5-51.6 H 63730-3) RDW-CV (test code = 18.9 % 12.1-15.4 H 788-0) PLT (test code = See_Comment [Automated 777-3) message] The sy stem which generated this result transmitted reference range : 150 - 328 10*3/ ?L. The reference r meredith was not used to interpret this result as normal/abnormal . MPV (test code = 8.9 fL 9.8-13 L 76344-7) NRBC/100 WBC (test See_Comment [Automat ed code = 4468772904) message] The system which generated this result transmitted reference range : 0.0 - 10.0 /100 WBCs. The refer ence range was not u sed to interpret th is result as normal/abnormal . NRBC x10^3 (test code <0.01 See_Comment [Auto mated = 6027649821) message] The s ystem which generated this result transmitted reference range : 10*3/?L. The reference range was not used to interpret this result as normal/abnormal . GRAN MAT (NEUT) % 59.4 % (test code = 770-8) IMM GRAN % (test code 0.20 % = 9857363518) LYMPH % (test code = 29.9 % 736-9) MONO % (test code = 9.0 % 5905-5) EOS % (test code = 1.2 % 713-8) BASO % (test code = 0.3 % 706-2) GRAN MAT x10^3(ANC) 3.56 10*3/uL 1.99-6.95 (test code = 8428747142) IMM GRAN x10^3 (test <0.03 0-0.06 code = 7959391705) LYMPH x10^3 (test code 1.79 10*3/uL 1.09-3.23 = 731-0) MONO x10^3 (test code 0.54 10*3/uL 0.36-1.02 = 742-7) EOS x10^3 (test code = 0.07 10*3/uL 0.06-0.53 711-2) BASO x10^3 (test code <0.03 0.01-0.09 = 704-7) Lab Interpretation Abnormal (test code = 16324-1) [facility]inalysis2020-[facility] 13:37:00 Test Item Value Reference Range Interpretation Comments APPEARANCE (test code = Hazy Clear A 7601894855) COLOR (test code = Yellow Yellow 2058081996) PH (test code = 4.8-8.0 9785723311) SP GRAVITY (test code = 1.003-1.030 H 0157234486) GLU U QUAL (test code = Normal Normal 1890169531) BLOOD (test code = Negative Negative 0646549724) KETONES (test code = Negative Negative 5011416037) PROTEIN (test code = Negative Negative 2887-8) UROBILIN (test code = Normal Normal 6983163558) BILIRUBIN (test code = Negative Negative 3665077636) NITRITE (test code = Negative Negative 6686150186) LEUK ROGER (test code = Negative Negative 9908459417) RBC/HPF (test code = See_Comment H [Autom ated message] 0415636936) The system [employer] generated this result transmitted ref erence range: 0 - 3 HP F. The reference range was not used to int erpret this result as normal/abnormal . WBC/HPF (test code = See_Comment [Autom ated message] 5625872005) The system [employer] generated this result transmitted ref erence range: 0 - 5 HP F. The reference range was not used to int erpret this result as normal/abnormal . BACTERIA (test code = Negative Negative 8294002366) MUCOUS (test code = Moderate Negative LPF A 0836718081) CA OXALATE (test code = See_Comment [Au tomated message] 5530877492) The system [employer] generated this result transmitted ref erence range: <=1 HPF. The reference range was not used to int erpret this result as normal/abnormal . SPERM (test code = See_Comment H [Automat ed message] 2002540761) The system [employer] generated this result transmitted ref erence range: <=1 HPF. The reference range was not used to int erpret this result as normal/abnormal . HYAL CAST (test code = See_Comment H [Aut omated message] 5916221070) The system [employer] generated this result transmitted ref erence range: <=2 LPF. The reference range was not used to int erpret this result as normal/abnormal . Lab Interpretation (test Abnormal code = 63250-7) [facility] P[facility] W [id number] 13:22:00CT Abdomen and Pelvis with intravenous contrast. [...] sign of infection. Left seminal vesicleshowed no significantenhancement.[facility] AllenVini [id number] 12:40:00 Test Item Value Reference Range Interpretation Comments TROPONIN I (test <0.012 See_Comment [Automated code = 9193635345) message] The system which generated this result [...] ? Lab Interpretation Normal (test code = 46091-1) [facility] (NA, K, CL, CO2, GLUCOSE, BUN, CREATININE, [place])2020-06-05 12:28:00 Test Item Value Reference Range Interpretation Comments NA (test code = 139 mmol/L 135-145 0428159114) K (test code = 4.4 mmol/L 3.5-5 9321206818) CL (test code = 112 mmol/L 98-108 H 8452642769) CO2 TOTAL (test code = 24 mmol/L 23-31 8931926409) AGAP (test code = 2-16 0175776706) BUN (test code = 23 mg/dL 7-23 4909194000) GLUCOSE (test code = 88 mg/dL 70-110 7983270657) CREATININE (test code = 0.96 mg/dL 0.6-1.25 2700913404) CALCIUM (test code = 9.5 mg/dL 8.6-10.6 0397756622) eGFR Calculation mL/min/1.73m2 (Non-) (test code = 3297626429) eGFR Calculation mL/min/1.73m2 () (test code = 6975516696) GILBERTO (test code = GILBERTO) Association of [...] tests). Lab Interpretation Abnormal (test code = 05328-5) [facility] (ALB, T.PRO, BILI T, BU/BC, ALT, AST, ALK PHOS)2020-06-05 12:28:00 Test Item Value Reference Range Interpretation Comments TOTAL BILI (test code = 3677338434) 0.5 mg/dL 0.1-1.1 BILI UNCON (test code = 5369167141) 0.3 mg/dL 0.1-1.1 BILI CONJ (test code = 7907523672) 0.0 mg/dL 0-0.3 T PROTEIN (test code = 1817596561) 6.6 g/dL 6.3-8.2 ALBUMIN (test code = 0884412191) 3.7 g/dL 3.5-5 ALK PHOS (test code = 8937792988) 79 U/L 34-122 ALTv (test code = 1742-6) 23 U/L 5-50 AST(SGOT) (test code = 2461057413) 27 U/L 13-40 Lab Interpretation (test code = Normal 70737-7) [facility] AllenLipase [id number] 12:28:00 Test Item Value Reference Range Interpretation Comments LIPASE (test code = 1890706288) 150 U/L 0-220 Lab Interpretation (test code = Normal 78871-3) [facility] with [id number] 12:11:00 Test Item Value Reference Range Interpretation [...] (test code = 62.2 fL 38.5-51.6 H 81126-7) RDW-CV (test code = 20.0 % 12.1-15.4 H 788-0) PLT (test code = See_Comment [Automated 777-3) message] The sy stem which generated this result transmitted reference range : 150 - 328 10*3/ ?L. The reference r meredith was not used to interpret this result as normal/abnormal . MPV (test code = 10.0 fL 9.8-13 58471-2) NRBC/100 WBC (test See_Comment [Automat ed code = 8740271641) message] The system which generated this result transmitted reference range : 0.0 - 10.0 /100 WBCs. The refer ence range was not u sed to interpret th is result as normal/abnormal . NRBC x10^3 (test code <0.01 See_Comment [Auto mated = 6130634436) message] The s ystem which generated this result transmitted reference range : 10*3/?L. The reference range was not used to interpret this result as normal/abnormal . GRAN MAT (NEUT) % 65.7 % (test code = 770-8) IMM GRAN % (test code 0.30 % = 1669893113) LYMPH % (test code = 21.2 % 736-9) MONO % (test code = 10.0 % 5905-5) EOS % (test code = 2.3 % 713-8) BASO % (test code = 0.5 % 706-2) GRAN MAT x10^3(ANC) 3.99 10*3/uL 1.99-6.95 (test code = 4387404698) IMM GRAN x10^3 (test <0.03 0-0.06 code = 7312908449) LYMPH x10^3 (test code 1.29 10*3/uL 1.09-3.23 = 731-0) MONO x10^3 (test code 0.61 10*3/uL 0.36-1.02 = 742-7) EOS x10^3 (test code = 0.14 10*3/uL 0.06-0.53 711-2) BASO x10^3 (test code 0.03 10*3/uL 0.01-0.09 = 704-7) Lab Interpretation Abnormal (test code = 23135-9) [facility] AllenLactic Acid Whole [id number] 12:04:00 Test Item Value Reference Range Interpretation Comments LACTIC ACID (test code = 1.23 mmol/L 1292558296) [facility]IR ABSCESS DRAIN [id number] 14:57:23 Successful abscessogram demonstrated unchanged position of [...] consentwas obtained. Prior to beginning the procedure, [place] Protocol was usedtoconfirm the patient's identity and planned procedure. Maximum sterilebarriers including cap, mask, momin nd hygiene, sterile gloves, sterile gown,large sterile drape and cutaneous antisepsis were used. Theskin overlying the existing drainage catheter in the right upperquadrant of the abdomen was sterilely prepped, draped and infiltrated with1 percent lidocaine. A mine safety engineer image was documented prior to the injection [...] drainage catheter and with questionablefistulization to bowel. [facility], Radiant Results Inft User - [...] consentwas obtained. Prior to beginning the procedure, [place] Protocol was usedto confirm the patient's identity and planned procedure. Maximum sterilebarriers including cap, mask, hand hygiene, sterile gloves, sterile gown,large sterile drape and cutaneous antisepsis were used. The skin overlying the existing drainage catheter in the right upperquadrant of the abdomen was sterilely prepped, draped and infiltrated with1 percent lidocaine. A mine safety engineer image was documented prior to the injection [...] and agree with theabove report. [facility] (NA, K, CL, CO2, GLUCOSE, BUN, CREATININE, [place])2020-05-31 08:13:00 Test Item Value Reference Range Interpretation Comments NA (test code = 135 mmol/L 135-145 4030219784) K (test code = 4.1 mmol/L 3.5-5 5290535029) CL (test code = 99 mmol/L 98-108 3836618192) CO2 TOTAL (test code = 32 mmol/L 23-31 H 7084925278) AGAP (test code = 2-16 3259258249) BUN (test code = 14 mg/dL 7-23 4641247870) GLUCOSE (test code = 89 mg/dL 70-110 4933151699) CREATININE (test code = 0.67 mg/dL 0.6-1.25 1039478037) CALCIUM (test code = 8.2 mg/dL 8.6-10.6 L 2139602830) eGFR Calculation mL/min/1.73m2 (Non-) (test code = 2443266556) eGFR Calculation mL/min/1.73m2 () (test code = 7092419436) GILBERTO (test code = GILBERTO) Association of [...] tests). Lab Interpretation Abnormal (test code = 86368-6) [facility]2020-[facility] 08:13:00 Test Item Value Reference Range Interpretation Comments MAGNESIUM (test code = 4336772240) 1.8 mg/dL 1.7-2.4 Lab Interpretation (test code = Normal 07572-0) [facility]2020-10-08 08:13:00 Test Item Value Reference Range Interpretation Comments PHOSPHORUS (test code = 5685677512) 5.2 mg/dL 2.5-5 H Lab Interpretation (test code = Abnormal 80509-2) [facility] WITH [id number] 08:05:00 Test Item Value Reference Range Interpretation [...] (test code = 57.9 fL 38.5-51.6 H 97210-0) RDW-CV (test code = 18.7 % 12.1-15.4 H 788-0) PLT (test code = See_Comment [Automated 777-3) message] The sy stem which generated this result transmitted reference range : 150 - 328 10*3/ ?L. The reference r meredith was not used to interpret this result as normal/abnormal . MPV (test code = 10.3 fL 9.8-13 92290-0) NRBC/100 WBC (test See_Comment [Automat ed code = 9691965311) message] The system which generated this result transmitted reference range : 0.0 - 10.0 /100 WBCs. The refer ence range was not u sed to interpret th is result as normal/abnormal . NRBC x10^3 (test code <0.01 See_Comment [Auto mated = 7978174924) message] The s ystem which generated this result transmitted reference range : 10*3/?L. The reference range was not used to interpret this result as normal/abnormal . GRAN MAT (NEUT) % 56.4 % (test code = 770-8) IMM GRAN % (test code 0.50 % = 4765237039) LYMPH % (test code = 26.2 % 736-9) MONO % (test code = 12.2 % 5905-5) EOS % (test code = 4.2 % 713-8) BASO % (test code = 0.5 % 706-2) GRAN MAT x10^3(ANC) 2.31 10*3/uL 1.99-6.95 (test code = 4888870174) IMM GRAN x10^3 (test <0.03 0-0.06 code = 0689011880) LYMPH x10^3 (test code 1.07 10*3/uL 1.09-3.23 L = 731-0) MONO x10^3 (test code 0.50 10*3/uL 0.36-1.02 = 742-7) EOS x10^3 (test code = 0.17 10*3/uL 0.06-0.53 711-2) BASO x10^3 (test code <0.03 0.01-0.09 = 704-7) Lab Interpretation Abnormal (test code = 65046-4) [facility] METABOLIC PANEL (NA, K, CL, CO2, GLUCOSE, BUN, CREATININE, CA)2020-05-30 09:04:00 Test Item Value Reference Range Interpretation Comments NA (test code = 138 mmol/L 135-145 0638205164) K (test code = 4.4 mmol/L 3.5-5 1058852391) CL (test code = 99 mmol/L 98-108 8192226110) CO2 TOTAL (test code = 33 mmol/L 23-31 H 7321681352) AGAP (test code = 2-16 4762246633) BUN (test code = 18 mg/dL 7-23 3621310181) GLUCOSE (test code = 86 mg/dL 70-110 0739811578) CREATININE (test code = 0.61 mg/dL 0.6-1.25 8255644100) CALCIUM (test code = 8.1 mg/dL 8.6-10.6 L 8771783345) eGFR Calculation mL/min/1.73m2 (Non-) (test code = 8407182297) eGFR Calculation mL/min/1.73m2 () (test code = 4586841253) GILBERTO (test code = GILBERTO) Association of [...] tests). Lab Interpretation Abnormal (test code = 47786-4) [facility]ES[facility]2020-10-07 09:04:00 Test Item Value Reference Range Interpretation Comments MAGNESIUM (test code = 2742638477) 2.0 mg/dL 1.7-2.4 Lab Interpretation (test code = Normal 70435-4) [facility]2020-10-07 09:04:00 Test Item Value Reference Range Interpretation Comments PHOSPHORUS (test code = 3239501124) 4.6 mg/dL 2.5-5 Lab Interpretation (test code = Normal 14096-4) [facility] METABOLIC PANEL (NA, K, CL, CO2, GLUCOSE, BUN, CREATININE, CA)2020-05-29 07:31:00 Test Item Value Reference Range Interpretation Comments NA (test code = 135 mmol/L 135-145 5002871314) K (test code = 4.0 mmol/L 3.5-5 7676890271) CL (test code = 100 mmol/L 98-108 6472342026) CO2 TOTAL (test code = 32 mmol/L 23-31 H 7636843543) AGAP (test code = 2-16 3513628427) BUN (test code = 19 mg/dL 7-23 5682045955) GLUCOSE (test code = 86 mg/dL 70-110 2153089430) CREATININE (test code = 0.68 mg/dL 0.6-1.25 0564979762) CALCIUM (test code = 8.0 mg/dL 8.6-10.6 L 5599905112) eGFR Calculation mL/min/1.73m2 (Non-) (test code = 0200139950) eGFR Calculation mL/min/1.73m2 () (test code = 8886753160) GILBERTO (test code = GILBERTO) Association of [...] tests). Lab Interpretation Abnormal (test code = 46855-8) [facility]2020-10-06 07:31:00 Test Item Value Reference Range Interpretation Comments MAGNESIUM (test code = 4455461563) 1.6 mg/dL 1.7-2.4 L Lab Interpretation (test code = Abnormal 45336-9) [facility]2020-10-06 07:31:00 Test Item Value Reference Range Interpretation Comments PHOSPHORUS (test code = 9903707599) 3.5 mg/dL 2.5-5 Lab Interpretation (test code = Normal 15659-4) [facility] AllenASPIRATE OR ABSCESS CULTURE(AEROBIC/ANAEROBIC) 2020-05-28 12:35:00 Test Item Value Reference Range Interpretation Comments Aspirate or Abscess No aerobic/anaerobic Culture (test code = organisms isolated 39511-8) Gram stain (test code Occasional (Rare) = 664-3) Mononuclear cells [facility]ABOLIC PANEL (NA, K, CL, CO2, GLUCOSE, BUN, CREATININE, CA)2020-05-28 09:36:00 Test Item Value Reference Range Interpretation Comments NA (test code = 136 mmol/L 135-145 4375544437) K (test code = 4.3 mmol/L 3.5-5 1572922958) CL (test code = 102 mmol/L 98-108 2189031693) CO2 TOTAL (test code = 31 mmol/L 23-31 5079913159) AGAP (test code = 2-16 5496996847) BUN (test code = 25 mg/dL 7-23 H 5451259642) GLUCOSE (test code = 87 mg/dL 70-110 1354687230) CREATININE (test code = 0.65 mg/dL 0.6-1.25 9552661643) CALCIUM (test code = 8.2 mg/dL 8.6-10.6 L 4819424320) eGFR Calculation mL/min/1.73m2 (Non-) (test code = 4259839160) eGFR Calculation mL/min/1.73m2 () (test code = 2087544695) GILBERTO (test code = GILBERTO) Association of [...] tests). Lab Interpretation Abnormal (test code = 19472-3) [facility]2020-10-05 09:36:00 Test Item Value Reference Range Interpretation Comments MAGNESIUM (test code = 8468254687) 1.6 mg/dL 1.7-2.4 L Lab Interpretation (test code = Abnormal 57496-9) [facility]PH[facility]2020-10-05 09:36:00 Test Item Value Reference Range Interpretation Comments PHOSPHORUS (test code = 9169947376) 2.6 mg/dL 2.5-5 Lab Interpretation (test code = Normal 94759-8) [facility] (NA, K, CL, CO2, GLUCOSE, BUN, CREATININE, CA)2020-05-27 10:13:00 Test Item Value Reference Range Interpretation Comments NA (test code = 135 mmol/L 135-145 3365653309) K (test code = 3.9 mmol/L 3.5-5 3406870714) CL (test code = 103 mmol/L 98-108 6885327625) CO2 TOTAL (test code = 28 mmol/L 23-31 3016736630) AGAP (test code = 2-16 0985789308) BUN (test code = 20 mg/dL 7-23 5838421223) GLUCOSE (test code = 95 mg/dL 70-110 9925868290) CREATININE (test code = 0.67 mg/dL 0.6-1.25 6384255961) CALCIUM (test code = 8.2 mg/dL 8.6-10.6 L 2773865567) eGFR Calculation mL/min/1.73m2 (Non-) (test code = 6411189777) eGFR Calculation mL/min/1.73m2 () (test code = 4089803525) GILBERTO (test code = GILBERTO) Association of [...] tests). Lab Interpretation Abnormal (test code = 81473-4) [facility]2020-10-04 10:13:00 Test Item Value Reference Range Interpretation Comments MAGNESIUM (test code = 6152728892) 1.5 mg/dL 1.7-2.4 L Lab Interpretation (test code = Abnormal 00750-7) [facility]2020-10-04 10:13:00 Test Item Value Reference Range Interpretation Comments PHOSPHORUS (test code = 9092253499) 3.4 mg/dL 2.5-5 Lab Interpretation (test code = Normal 71628-7) [facility]IR CHANGE OF ABSCESS [id number] 17:06:27 Successful removal of the left upper quadrant drainage catheter. Replacement of the right upper quadrant catheter into the most superiorsegment of the collection with a new 10 Argentine pigtail catheter.PLAN: This tube should be flushed with 10 of saline twice a day. ?We willcontinue to monitor the output of the catheter while the patient isin-house. If the patient is discharged prior to catheter removal, follow-upwith VIR is recommended in 7-10 ?days. This can be arranged by [id number]. Preliminary Report Dictated by Resident: Johnny Tilley [...] performing theprocedure. Please see Epic for sedation time. RADIATION DOSE: 33.0 mGy. TECHNIQUE: The risks, benefits and alternativeswere discussed and informed consentwas obtained. Prior to beginning the procedure, [place] Protocol was usedto confirm the patient's identity [...] of the pigtailcatheters within the respective collections. [facility], Radiant Results Inft User - [...] from those actually performing theprocedure. Please see [facility] for sedation time.RADIATION DOSE: 33.0 mGy.TECHNIQUE: The risks, benefits andalternatives were discussed and informed consentwas obtained. Prior to beginning the procedure, [place] Protocol was usedto confirm the patient's identity [...] of the collection with a new 10 Argentine pigtail catheter.PLAN: This tube should be flushed with 10 of saline twice a day. We willcontinue to monitor the output of the catheter while the patient isin-house. If the patient is discharged prior to catheter removal, follow-upwith VIR is recommended in 7-10 days. This can be arranged by [id number].Preliminary Report Dictated by Resident: Johnny Benitez, as teaching physician, was present during the entire procedure and/orduring the botello components.Nixon Ang MD., have reviewed this study and agree with theabove report.[facility] ABSCESS BULLA OR CYST BY [id number] 17:06:16 Successful ultrasound-guided aspiration of intrahepatic small fluidcollection. Sample sent for culture. Preliminary Report Dictated by Resident: Johnny Tilley I, as teaching physician, was present during the entire procedure and/orduring the botello components. Nixon Ang MD., have reviewed this study and agree with theabove report.EXAMINATION: IMAGE GUIDED PERCUTANEOUS INFRAHEPATIC FLUID COLLECTIONASPIRATION HISTORY: 50 years- old; Male; peritoneal abscess. ATTENDEES: ?Attending radiologist:Nixon Perez; Resident: Dr. Johnny Tilley;Contributing VIR Fellow: Dr. Vance Stafford. SEDATION: No moderate sedation was utilized for this procedure. TECHNIQUE: The risks, benefits and alternativeswere discussed and informed consentwas obtained. Prior to beginning the procedure, [place] Protocol was usedto confirm the patient's identity and planned procedure. Maximum sterilebarriers including cap, mask, hand hygiene, sterile gloves, sterile gown,large sterile drape and cutaneous antisepsis were used. The skin overlying the right mid abdomen was sterilely prepped, draped andinfiltrated with 1percent lidocaine. The targeted infrahepatic small collection was then accessed with [id number] micropuncture needle using imaging guidance which includedultrasound. The fluid collection was carefully aspirated. A steriledressing was applied. A sample of the fluid was sent for culture ESTIMATED BLOOD LOSS: Minimal. DISCHARGED TO: Recovery and then to inpatient unit. CONDITION: Stable. FINDINGS: Ultrasound imaging of the infrahepatic area demonstrated a very smallanechoic fluid collection. 1 mL yellowviscous-appearing fluid wasaspirated. [facility], Radiant Results Inft User - 05/26/2020 12:07 PM CDTEXAMINATION: IMAGE GUIDED PERCUTANEOUS INFRAHEPATIC FLUID COLLECTIONASPIRATIONHISTORY: 50 years-old; Male;peritoneal abscess.ATTENDEES: Attending radiologist: Nixon Perez; Resident: Dr. Johnny Tilley;Contributing VIR Fellow: Dr. Vance Stafford.SEDATION: No moderate sedation was utilized for this procedure.TECHNIQUE: The risks, benefits and alternatives were discussed and informed consentwas obtained. Prior to beginning the procedure, [place] Protocol was usedto confirm the patient's identity and planned procedure. Maximum sterilebarriers including cap, mask, hand hygiene, sterile gloves, sterile gown,large sterile drape and cutaneous antisepsis were used. The skin overlying the right mid abdomen was sterilely prepped, draped andinfiltrated with 1 percent lidocaine. The targeted infrahepatic small collection was then accessed with [id number] micropuncture needle using imaging guidance which includ [...] reviewed this study and agree with theabove report.[facility] (NA, K, CL, CO2, GLUCOSE, BUN, CREATININE, CA) 2020-05-26 10:13:00 Test Item Value Reference Range Interpretation Comments NA (test code = 135 mmol/L 135-145 7473135783) K (test code = 4.4 mmol/L 3.5-5 5140636405) CL (test code = 107 mmol/L 98-108 2660963830) CO2 TOTAL (test code = 23 mmol/L 23-31 4842317940) AGAP (test code = 2-16 6314849888) BUN (test code = 18 mg/dL 7-23 9590750113) GLUCOSE (test code = 101 mg/dL 70-110 3126741216) CREATININE (test code = 0.61 mg/dL 0.6-1.25 6419949221) CALCIUM (test code = 8.1 mg/dL 8.6-10.6 L 7184989364) eGFR Calculation mL/min/1.73m2 (Non-) (test code = 9366111114) eGFR Calculation mL/min/1.73m2 () (test code = 1033952372) GILBERTO (test code = GILBERTO) Association of [...] tests). Lab Interpretation Abnormal (test code = 23504-2) [facility]2020-[facility]-03 10:13:00 Test Item Value Reference Range Interpretation Comments MAGNESIUM (test code = 6295493607) 1.7 mg/dL 1.7-2.4 Lab Interpretation (test code = Normal 13575-7) [facility]OS[facility]US2020-10-03 10:13:00 Test Item Value Reference Range Interpretation Comments PHOSPHORUS (test code = 6453466173) 3.4 mg/dL 2.5-5 Lab Interpretation (test code = Normal 60578-1) [facility] AllenXR [id number] 23:20:33 Positioning dictated draining the right upper [...] are identified. No acutebony abnormality is present. [facility], Radiant Results Inft User - [...] reviewed this study and agree with theabove report.[facility] (NA, K, CL, CO2, GLUCOSE, BUN, CREATININE, CA)2020-05-25 22:49:00 Test Item Value Reference Range Interpretation Comments NA (test code = 136 mmol/L 135-145 9049933473) K (test code = 4.5 mmol/L 3.5-5 6492962211) CL (test code = 105 mmol/L 98-108 1418732711) CO2 TOTAL (test code = 22 mmol/L 23-31 L 0457645362) AGAP (test code = 2-16 0278083648) BUN (test code = 24 mg/dL 7-23 H 5624092032) GLUCOSE (test code = 101 mg/dL 70-110 6838467244) CREATININE (test code = 0.74 mg/dL 0.6-1.25 1595349283) CALCIUM (test code = 8.6 mg/dL 8.6-10.6 0435610140) eGFR Calculation mL/min/1.73m2 (Non-) (test code = 3282905012) eGFR Calculation mL/min/1.73m2 () (test code = 3527423621) GILBERTO (test code = GILBERTO) Association of [...] tests). Lab Interpretation Abnormal (test code = 76536-5) [facility]2020-10-02 22:11:00 Test Item Value Reference Range Interpretation Comments MAGNESIUM (test code = 1667692947) 2.0 mg/dL 1.7-2.4 Lab Interpretation (test code = Normal 98182-9) [facility]OS[facility]US2020-10-02 22:11:00 Test Item Value Reference Range Interpretation Comments PHOSPHORUS (test code = 3048233454) 3.1 mg/dL 2.5-5 Lab Interpretation (test code = Normal 59292-6) [facility] WITH [id number] 21:51:00 Test Item Value Reference Range Interpretation [...] (test code = 53.1 fL 38.5-51.6 H 23746-7) RDW-CV (test code = 17.9 % 12.1-15.4 H 788-0) PLT (test code = See_Comment [Automated 777-3) message] The sy stem which generated this result transmitted reference range : 150 - 328 10*3/ ?L. The reference r meredith was not used to interpret this result as normal/abnormal . MPV (test code = 9.1 fL 9.8-13 L 92153-1) NRBC/100 WBC (test See_Comment [Automat ed code = 8754007503) message] The system which generated this result transmitted reference range : 0.0 - 10.0 /100 WBCs. The refer ence range was not u sed to interpret th is result as normal/abnormal . NRBC x10^3 (test code <0.01 See_Comment [Auto mated = 4943717470) message] The s ystem which generated this result transmitted reference range : 10*3/?L. The reference range was not used to interpret this result as normal/abnormal . GRAN MAT (NEUT) % 73.4 % (test code = 770-8) IMM GRAN % (test code 0.50 % = 1786373320) LYMPH % (test code = 17.9 % 736-9) MONO % (test code = 5.2 % 5905-5) EOS % (test code = 2.5 % 713-8) BASO % (test code = 0.5 % 706-2) GRAN MAT x10^3(ANC) 4.05 10*3/uL 1.99-6.95 (test code = 2527126259) IMM GRAN x10^3 (test 0.03 10*3/uL 0-0.06 code = 6722140623) LYMPH x10^3 (test code 0.99 10*3/uL 1.09-3.23 L = 731-0) MONO x10^3 (test code 0.29 10*3/uL 0.36-1.02 L = 742-7) EOS x10^3 (test code = 0.14 10*3/uL 0.06-0.53 711-2) BASO x10^3 (test code 0.03 10*3/uL 0.01-0.09 = 704-7) Lab Interpretation Abnormal (test code = 70178-4) [facility] METABOLIC PANEL (NA, K, CL, CO2, GLUCOSE, BUN, CREATININE, CA)2020-05-25 09:24:00 Test Item Value Reference Range Interpretation Comments NA (test code = 135 mmol/L 135-145 9941999736) K (test code = 5.3 mmol/L 3.5-5 H Slight 0570141192) hemolysis CL (test code = 104 mmol/L 98-108 8718882403) CO2 TOTAL (test code 24 mmol/L 23-31 = 9876361919) AGAP (test code = 2-16 2531216449) BUN (test code = 22 mg/dL 7-23 Slight 3761104362) hemolysis GLUCOSE (test code = 96 mg/dL 70-110 4588586158) CREATININE (test code 0.73 mg/dL 0.6-1.25 = 0940873258) CALCIUM (test code = 8.2 mg/dL 8.6-10.6 L 3617584714) eGFR Calculation mL/min/1.73m2 (Non-) (test code = 4675924075) eGFR Calculation mL/min/1.73m2 () (test code = 7862586411) GILBERTO (test code = GILBERTO) Association of [...] tests). Lab Interpretation Abnormal (test code = 78191-7) [facility]2020-10-02 09:24:00 Test Item Value Reference Range Interpretation Comments MAGNESIUM (test code = 4637085075) 2.3 mg/dL 1.7-2.4 Lab Interpretation (test code = Normal 12735-7) [facility]2020-10-02 09:24:00 Test Item Value Reference Range Interpretation Comments PHOSPHORUS (test code = 6133893226) 3.4 mg/dL 2.5-5 Lab Interpretation (test code = Normal 00551-3) [facility] METABOLIC PANEL (NA, K, CL, CO2, GLUCOSE, BUN, CREATININE, CA)2020-05-24 21:00:00 Test Item Value Reference Range Interpretation Comments NA (test code = 135 mmol/L 135-145 6483436506) K (test code = 4.3 mmol/L 3.5-5 1074225270) CL (test code = 102 mmol/L 98-108 3088157581) CO2 TOTAL (test code = 25 mmol/L 23-31 9825970112) AGAP (test code = 2-16 9003852387) BUN (test code = 20 mg/dL 7-23 2241216715) GLUCOSE (test code = 102 mg/dL 70-110 3358959503) CREATININE (test code 0.97 mg/dL 0.6-1.25 = 9133808156) CALCIUM (test code = 9.0 mg/dL 8.6-10.6 9706294299) eGFR Calculation mL/min/1.73m2 (Non-) (test code = 2554661206) eGFR Calculation mL/min/1.73m2 () (test code = 3772520208) GILBERTO (test code = GILBERTO) Association of [...] or abnormalities in imaging tests). [facility]2020-10-01 21:00:00 Test Item Value Reference Range Interpretation Comments MAGNESIUM (test code = 7345612316) 1.5 mg/dL 1.7-2.4 L Lab Interpretation (test code = Abnormal 14656-6) [facility]2020-10-01 20:58:00 Test Item Value Reference Range Interpretation Comments PHOSPHORUS (test code = 6238918494) 3.3 mg/dL 2.5-5 Lab Interpretation (test code = Normal 13087-7) [facility]CB with [id number] 11:31:00 Test Item Value Reference Range Interpretation [...] (test code = 51.9 fL 38.5-51.6 H 48026-6) RDW-CV (test code = 17.6 % 12.1-15.4 H 788-0) PLT (test code = See_Comment H [Automated 777-3) message] The sy stem which generated this result transmitted reference range : 150 - 328 10*3/ ?L. The reference r meredith was not used to interpret this result as normal/abnormal . MPV (test code = 9.0 fL 9.8-13 L 25965-0) NRBC/100 WBC (test See_Comment [Automat ed code = 0773784035) message] The system which generated this result transmitted reference range : 0.0 - 10.0 /100 WBCs. The refer ence range was not u sed to interpret th is result as normal/abnormal . NRBC x10^3 (test code <0.01 See_Comment [Auto mated = 4093086498) message] The s ystem which generated this result transmitted reference range : 10*3/?L. The reference range was not used to interpret this result as normal/abnormal . GRAN MAT (NEUT) % 66.0 % (test code = 770-8) IMM GRAN % (test code 0.20 % = 3934117012) LYMPH % (test code = 20.3 % 736-9) MONO % (test code = 10.4 % 5905-5) EOS % (test code = 2.6 % 713-8) BASO % (test code = 0.5 % 706-2) GRAN MAT x10^3(ANC) 4.33 10*3/uL 1.99-6.95 (test code = 8638636438) IMM GRAN x10^3 (test <0.03 0-0.06 code = 0875738544) LYMPH x10^3 (test code 1.33 10*3/uL 1.09-3.23 = 731-0) MONO x10^3 (test code 0.68 10*3/uL 0.36-1.02 = 742-7) EOS x10^3 (test code = 0.17 10*3/uL 0.06-0.53 711-2) BASO x10^3 (test code 0.03 10*3/uL 0.01-0.09 = 704-7) Lab Interpretation Abnormal (test code = 42264-4) [facility] W [id number] 17:39:05 Since 05/19/2020 slight increase in size [...] perihepatic are unchanged with drains insitu as above.[facility] Met[facility] Panel (NA, K, CL, CO2, Glucose, BUN, Creatinine, CA)2020-05-23 10:25:00 Test Item Value Reference Range Interpretation Comments NA (test code = 135 mmol/L 135-145 3429134788) K (test code = 3.7 mmol/L 3.5-5 0047349364) CL (test code = 105 mmol/L 98-108 1246419988) CO2 TOTAL (test code = 24 mmol/L 23-31 3543020694) AGAP (test code = 2-16 6230217966) BUN (test code = 19 mg/dL 7-23 2504406711) GLUCOSE (test code = 117 mg/dL 70-110 H 7638245756) CREATININE (test code = 0.74 mg/dL 0.6-1.25 7670125645) CALCIUM (test code = 7.3 mg/dL 8.6-10.6 L 2597693864) eGFR Calculation mL/min/1.73m2 (Non-) (test code = 4057624073) eGFR Calculation mL/min/1.73m2 () (test code = 8824674758) GILBERTO (test code = GILBERTO) Association of [...] tests). Lab Interpretation Abnormal (test code = 92001-8) [facility] COVID-19 [id number] 07:40:00 Test Item Value Reference Range Interpretation Comments SARS-CoV-2 Rapid ID NOW Not Detected Not Detected (test code = 39600-4) GILBERTO (test code = GILBERTO) ID NOW COVID-19 Assay is an isothermal nucleic acid amplification test intended for the qualitative detection of nucleic acid from SARS-CoV-2 viral RNA in nasopharyngeal ([employer]) specimens. It is used under Emergency Use [...] indicated. Lab Interpretation Normal (test code = 95348-3) [facility] AllenUrinalysis2020-09-29 22:41:00 Test Item Value Reference Range Interpretation Comments APPEARANCE (test code = Hazy Clear A 1338881464) COLOR (test code = Yellow Yellow 1520643425) PH (test code = 4.8-8.0 4560987471) SP GRAVITY (test code = 1.003-1.030 3826776470) GLU U QUAL (test code = Normal Normal 8727940078) BLOOD (test code = Negative Negative 9292202357) KETONES (test code = Negative Negative 7370164571) PROTEIN (test code = 30 mg/dL Negative A 2887-8) UROBILIN (test code = Normal Normal 6814893957) BILIRUBIN (test code = Negative Negative 4181561573) NITRITE (test code = Negative Negative 2116170143) LEUK ROGER (test code = Negative Negative 1930385608) RBC/HPF (test code = See_Comment H [Autom ated message] 1347059889) The system [employer] generated this result transmitted ref erence range: 0 - 3 HP F. The reference range was not used to int erpret this result as normal/abnormal . WBC/HPF (test code = See_Comment H [Autom ated message] 8234217378) The system [employer] generated this result transmitted ref erence range: 0 - 5 HP F. The reference range was not used to int erpret this result as normal/abnormal . BACTERIA (test code = Negative Negative 2632857877) MUCOUS (test code = Moderate Negative LPF A 9904569616) SQ EPITH (test code = See_Comment [Auto mated message] 1621865328) The system [employer] generated this result transmitted ref erence range: <=2 HPF. The reference range was not used to int erpret this result as normal/abnormal . CA OXALATE (test code = See_Comment H [Au tomated message] 5642795411) The system [employer] generated this result transmitted ref erence range: <=1 HPF. The reference range was not used to int erpret this result as normal/abnormal . HYAL CAST (test code = See_Comment H [Aut omated message] 8026626958) The system [employer] generated this result transmitted ref erence range: <=2 LPF. The reference range was not used to int erpret this result as normal/abnormal . Lab Interpretation (test Abnormal code = 80045-8) [facility] Metabolic Panel (NA, K, CL, CO2, GLUCOSE, BUN, CREATININE, CA)2020-05-22 21:46:00 Test Item Value Reference Range Interpretation Comments NA (test code = 134 mmol/L 135-145 L 7281203324) K (test code = 5.0 mmol/L 3.5-5 2898417575) CL (test code = 103 mmol/L 98-108 5650896054) CO2 TOTAL (test code = 25 mmol/L 23-31 0078142601) AGAP (test code = 2-16 3174472277) BUN (test code = 24 mg/dL 7-23 H 6223141491) GLUCOSE (test code = 102 mg/dL 70-110 7835474989) CREATININE (test code = 0.87 mg/dL 0.6-1.25 7384155347) CALCIUM (test code = 9.2 mg/dL 8.6-10.6 2428382786) eGFR Calculation mL/min/1.73m2 (Non-) (test code = 9973862320) eGFR Calculation mL/min/1.73m2 () (test code = 6451381978) GILBERTO (test code = GILBERTO) Association of [...] tests). Lab Interpretation Abnormal (test code = 53357-8) [facility] Allen[facility]atic Function Panel (ALB, T.PRO, BILI T, BU/BC, ALT, AST, ALK PHOS)2020-05-22 21:46:00 Test Item Value Reference Range Interpretation Comments TOTAL BILI (test code = 2868582296) 0.4 mg/dL 0.1-1.1 BILI UNCON (test code = 8137055010) 0.2 mg/dL 0.1-1.1 BILI CONJ (test code = 4554966684) 0.0 mg/dL 0-0.3 T PROTEIN (test code = 1364935206) 6.5 g/dL 6.3-8.2 ALBUMIN (test code = 7435451984) 3.6 g/dL 3.5-5 ALK PHOS (test code = 8049908919) 96 U/L 34-122 ALTv (test code = 1742-6) 22 U/L 5-50 AST(SGOT) (test code = 9808317284) 28 U/L 13-40 Lab Interpretation (test code = Normal 39769-5) [facility] AllenLipase [id number] 21:46:00 Test Item Value Reference Range Interpretation Comments LIPASE (test code = 9186006601) 95 U/L 0-220 Lab Interpretation (test code = Normal 34585-3) [facility] AllenaPTT2020-09-29 21:46:00 Test Item Value Reference Range Interpretation Comments APTT Patient (test code = See_Comment [ Automated message] 3173-2) The system [employer] generated this result transmitted ref erence range: 26 - 36 Seconds. The re ference range was not u sed to interpret this result as normal/abnor mal. Lab Interpretation (test Normal code = 61563-3) [facility] AllenProthrombin Time (PT) / [id number] 21:46:00 Test Item Value Reference Range Interpretation Comments PROTIME PATIENT (test See_Comment H [Auto mated message] code = 5964-2) The system [employer] generated this result transmitted ref erence range: 10.1 - 1 2.6 Seconds. The reference range was not used to int erpret this result as normal/abnormal . INR (test code = 6301-6) Nor mal INR <1.1; Warfarin Therap eutic range 2.0 to 3. 0 or 2.5 to 3.5, dep ending upon the indica tions. Lab Interpretation (test Abnormal code = 13951-8) [facility] with [id number] 21:41:00 Test Item Value Reference Range Interpretation [...] (test code = 53.0 fL 38.5-51.6 H 68503-7) RDW-CV (test code = 17.6 % 12.1-15.4 H 788-0) PLT (test code = See_Comment H [Automated 777-3) message] The sy stem which generated this result transmitted reference range : 150 - 328 10*3/ ?L. The reference r meredith was not used to interpret this result as normal/abnormal . MPV (test code = 9.1 fL 9.8-13 L 04449-3) NRBC/100 WBC (test See_Comment [Automat ed code = 1832628310) message] The system which generated this result transmitted reference range : 0.0 - 10.0 /100 WBCs. The refer ence range was not u sed to interpret th is result as normal/abnormal . NRBC x10^3 (test code <0.01 See_Comment [Auto mated = 0117289403) message] The s ystem which generated this result transmitted reference range : 10*3/?L. The reference range was not used to interpret this result as normal/abnormal . GRAN MAT (NEUT) % 77.4 % (test code = 770-8) IMM GRAN % (test code 0.50 % = 4196093253) LYMPH % (test code = 15.8 % 736-9) MONO % (test code = 4.9 % 5905-5) EOS % (test code = 0.8 % 713-8) BASO % (test code = 0.6 % 706-2) GRAN MAT x10^3(ANC) 5.04 10*3/uL 1.99-6.95 (test code = 3671057234) IMM GRAN x10^3 (test 0.03 10*3/uL 0-0.06 code = 7668251128) LYMPH x10^3 (test code 1.03 10*3/uL 1.09-3.23 L = 731-0) MONO x10^3 (test code 0.32 10*3/uL 0.36-1.02 L = 742-7) EOS x10^3 (test code = 0.05 10*3/uL 0.06-0.53 L 711-2) BASO x10^3 (test code 0.04 10*3/uL 0.01-0.09 = 704-7) Lab Interpretation Abnormal (test code = 93432-9) [facility] 1 [id number] 21:19:32CHEST ONE VIEW HISTORY: ?Weakness TECHNIQUE: ?AP [...] the left costophrenic angle suggests a leftpleural effusion.[facility] (ID NOW RAPID TESTING) 2020-05-20 10:09:00 Test Item Value Reference Range Interpretation Comments SARS-CoV-2 Rapid ID NOW Not Detected Not Detected (test code = 97711-4) GILBERTO (test code = GILBERTO) ID NOW COVID-19 Assay is an isothermal nucleic acid amplification test intended for the qualitative detection of nucleic acid from SARS-CoV-2 viral RNA in nasopharyngeal ([employer]) specimens. It is used under Emergency Use [...] indicated. Lab Interpretation Normal (test code = 01306-8) [facility] AllenURINALYSIS2020-09-27 10:07:00 Test Item Value Reference Range Interpretation Comments APPEARANCE (test code = Clear Clear 1740831603) COLOR (test code = Yellow Yellow 7493021177) PH (test code = 4.8-8.0 9649547837) SP GRAVITY (test code = 1.003-1.030 H 1947600607) GLU U QUAL (test code = Normal Normal 2689802379) BLOOD (test code = Negative Negative 2220925177) KETONES (test code = Negative Negative 5733034437) PROTEIN (test code = Negative Negative 2887-8) UROBILIN (test code = Normal Normal 7695430640) BILIRUBIN (test code = Negative Negative 7215374072) NITRITE (test code = Negative Negative 7232348552) LEUK ROGER (test code = Negative Negative 3921551653) RBC/HPF (test code = See_Comment [Autom ated message] 9333175834) The system [employer] generated this result transmitted ref erence range: 0 - 3 HP F. The reference range was not used to int erpret this result as normal/abnormal . WBC/HPF (test code = See_Comment [Autom ated message] 9063045616) The system [employer] generated this result transmitted ref erence range: 0 - 5 HP F. The reference range was not used to int erpret this result as normal/abnormal . BACTERIA (test code = Negative Negative 4762403431) MUCOUS (test code = Slight Negative LPF A 8678644464) SQ EPITH (test code = See_Comment [Auto mated message] 2193211327) The system [employer] generated this result transmitted ref erence range: <=2 HPF. The reference range was not used to int erpret this result as normal/abnormal . HYAL CAST (test code = See_Comment H [Aut omated message] 9147382338) The system [employer] generated this result transmitted ref erence range: <=2 LPF. The reference range was not used to int erpret this result as normal/abnormal . Lab Interpretation (test Abnormal code = 50191-1) [facility] W [id number] 04:28:40Impression: 1. Multiple rim-enhancing fluid and gas [...] effusions, possiblyloculated on the left. RL: 2824AFC: [id number] End of Report Exam: CT Abdomen and [...] pleural effusions, possiblyloculated on the left.RL: 2824AFC: [id number] of Report [facility] [id number] 03:44:00 Test Item Value Reference Range Interpretation Comments TROPONIN I (test 0.001 ng/mL See_Comment [Automated code = 1704334043) message] The system which generated this result [...] ? Lab Interpretation Normal (test code = 58297-3) [facility]. METABOLIC PANEL (06011)2020-05-20 03:33:00 Test Item Value Reference Range Interpretation Comments NA (test code = 138 mmol/L 135-145 4210678110) K (test code = 5.3 mmol/L 3.5-5 H 4961074677) CL (test code = 100 mmol/L 98-108 2356450422) CO2 TOTAL (test code = 28 mmol/L 23-31 6246801169) AGAP (test code = 2-16 9208967610) BUN (test code = 27 mg/dL 7-23 H 5125403404) GLUCOSE (test code = 90 mg/dL 70-110 5182540615) CREATININE (test code = 1.25 mg/dL 0.6-1.25 3047945603) TOTAL BILI (test code = 0.2 mg/dL 0.1-1.9 7464332762) CALCIUM (test code = 9.9 mg/dL 8.6-10.6 4230720512) T PROTEIN (test code = 6.8 g/dL 6.3-8.2 6893088220) ALBUMIN (test code = 3.7 g/dL 3.5-5 7180111993) ALK PHOS (test code = 122 U/L 34-122 6111373286) ALTv (test code = 26 U/L 5-50 1742-6) AST(SGOT) (test code = 24 U/L 13-40 4107301584) eGFR Calculation mL/min/1.73m2 (Non-) (test code = 7709387592) eGFR Calculation mL/min/1.73m2 () (test code = 0240234327) GILBERTO (test code = GILBERTO) Association of [...] tests). Lab Interpretation Abnormal (test code = 58812-5) [facility] Test Item Value Reference Range Interpretation Comments LIPASE (test code = 4900707075) 223 U/L 0-220 H Lab Interpretation (test code = Abnormal 63158-9) [facility] 03:33:00 Test Item Value Reference Range Interpretation Comments MAGNESIUM (test code = 6681212081) 1.7 mg/dL 1.7-2.4 Lab Interpretation (test code = Normal 12905-1) [facility] WITH [id number] 03:17:00 Test Item Value Reference Range Interpretation [...] RDW-SD (test code = 49.9 fL 38.5-51.6 64996-8) RDW-CV (test code = 17.2 % 12.1-15.4 H 788-0) PLT (test code = See_Comment H [Automated 777-3) message] The sy stem which generated this result transmitted reference range : 150 - 328 10*3/ ?L. The reference r meredith was not used to interpret this result as normal/abnormal . MPV (test code = 9.3 fL 9.8-13 L 80237-2) NRBC/100 WBC (test See_Comment [Automat ed code = 2111412491) message] The system which generated this result transmitted reference range : 0.0 - 10.0 /100 WBCs. The refer ence range was not u sed to interpret th is result as normal/abnormal . NRBC x10^3 (test code <0.01 See_Comment [Auto mated = 7388397959) message] The s ystem which generated this result transmitted reference range : 10*3/?L. The reference range was not used to interpret this result as normal/abnormal . GRAN MAT (NEUT) % 78.5 % (test code = 770-8) IMM GRAN % (test code 0.50 % = 2455150133) LYMPH % (test code = 11.6 % 736-9) MONO % (test code = 8.4 % 5905-5) EOS % (test code = 0.6 % 713-8) BASO % (test code = 0.4 % 706-2) GRAN MAT x10^3(ANC) 6.16 10*3/uL 1.99-6.95 (test code = 4419423366) IMM GRAN x10^3 (test 0.04 10*3/uL 0-0.06 code = 0062630757) LYMPH x10^3 (test code 0.91 10*3/uL 1.09-3.23 L = 731-0) MONO x10^3 (test code 0.66 10*3/uL 0.36-1.02 = 742-7) EOS x10^3 (test code = 0.05 10*3/uL 0.06-0.53 L 711-2) BASO x10^3 (test code 0.03 10*3/uL 0.01-0.09 = 704-7) Lab Interpretation Abnormal (test code = 13251-7) [facility]EROBIC) 2020-05-10 15:19:00 Test Item Value Reference Range Interpretation Comments BODY FLUID CULT 2+ Clostridioides (test code = (Clostridium) difficile 611-4) Gram stain (test Few PMNs or Mononuclear code = 664-3) cells observed [facility] Met[facility] (NA, K, CL, CO2, GLUCOSE, BUN, CREATININE, CA)2020-05-10 10:27:00 Test Item Value Reference Range Interpretation Comments NA (test code = 132 mmol/L 135-145 L 2193067022) K (test code = 4.0 mmol/L 3.5-5 0115461141) CL (test code = 97 mmol/L 98-108 L 0829491658) CO2 TOTAL (test code = 28 mmol/L 23-31 5984259974) AGAP (test code = 2-16 5456435717) BUN (test code = 12 mg/dL 7-23 0625891453) GLUCOSE (test code = 128 mg/dL 70-110 H 2227351583) CREATININE (test code = 0.63 mg/dL 0.6-1.25 7889826377) CALCIUM (test code = 8.7 mg/dL 8.6-10.6 7569947043) eGFR Calculation mL/min/1.73m2 (Non-) (test code = 2553339818) eGFR Calculation mL/min/1.73m2 () (test code = 9392395600) GILBERTO (test code = GILBERTO) Association of [...] tests). Lab Interpretation Abnormal (test code = 97853-6) [facility] Weljf1284-89-97 10:27:00 Test Item Value Reference Range Interpretation Comments MAGNESIUM (test code = 1677829905) 1.7 mg/dL 1.7-2.4 Lab Interpretation (test code = Normal 36797-5) [facility] AllenPhosph[facility] Jpvdt2146-03-70 10:27:00 Test Item Value Reference Range Interpretation Comments PHOSPHORUS (test code = 5623219181) 3.4 mg/dL 2.5-5 Lab Interpretation (test code = Normal 97013-4) [facility] with Sobqhmzvctov8315-94-01 10:03:00 Test Item Value Reference Range Interpretation Comments WBC (test code = See_Comment [Automated 9157-2) message] The sy stem which generated this [...] RDW-SD (test code = 47.3 fL 38.5-51.6 15542-5) RDW-CV (test code = 15.7 % 12.1-15.4 H 788-0) PLT (test code = See_Comment H [Automated 777-3) message] The sy stem which generated this result transmitted reference range : 150 - 328 10*3/ ?L. The reference r meredith was not used to interpret this result as normal/abnormal . MPV (test code = 8.9 fL 9.8-13 L 70683-7) NRBC/100 WBC (test See_Comment [Automat ed code = 7584835699) message] The system which generated this result transmitted reference range : 0.0 - 10.0 /100 WBCs. The refer ence range was not u sed to interpret th is result as normal/abnormal . NRBC x10^3 (test code <0.01 See_Comment [Auto mated = 0670004569) message] The s ystem which generated this result transmitted reference range : 10*3/?L. The reference range was not used to interpret this result as normal/abnormal . GRAN MAT (NEUT) % 80.0 % (test code = 770-8) IMM GRAN % (test code 0.50 % = 5829077671) LYMPH % (test code = 11.8 % 736-9) MONO % (test code = 6.6 % 5905-5) EOS % (test code = 0.8 % 713-8) BASO % (test code = 0.3 % 706-2) GRAN MAT x10^3(ANC) 6.98 10*3/uL 1.99-6.95 H (test code = 6204149924) IMM GRAN x10^3 (test 0.04 10*3/uL 0-0.06 code = 5973239114) LYMPH x10^3 (test code 1.03 10*3/uL 1.09-3.23 L = 731-0) MONO x10^3 (test code 0.58 10*3/uL 0.36-1.02 = 742-7) EOS x10^3 (test code = 0.07 10*3/uL 0.06-0.53 711-2) BASO x10^3 (test code 0.03 10*3/uL 0.01-0.09 = 704-7) Lab Interpretation Abnormal (test code = 32912-5) [facility] Metabolic Panel (NA, K, CL, CO2, GLUCOSE, BUN, CREATININE, CA)2020-05-09 11:07:00 Test Item Value Reference Range Interpretation Comments NA (test code = 133 mmol/L 135-145 L 8818466240) K (test code = 4.4 mmol/L 3.5-5 9376474860) CL (test code = 100 mmol/L 98-108 6575638239) CO2 TOTAL (test code = 25 mmol/L 23-31 2498802711) AGAP (test code = 2-16 3792353718) BUN (test code = 14 mg/dL 7-23 5983575934) GLUCOSE (test code = 93 mg/dL 70-110 5083309993) CREATININE (test code = 0.66 mg/dL 0.6-1.25 6563239859) CALCIUM (test code = 8.3 mg/dL 8.6-10.6 L 8619989850) eGFR Calculation mL/min/1.73m2 (Non-) (test code = 3761387702) eGFR Calculation mL/min/1.73m2 () (test code = 4779277299) GILBERTO (test code = GILBERTO) Association of [...] tests). Lab Interpretation Abnormal (test code = 91358-8) [facility] Deqxk5928-09-90 11:07:00 Test Item Value Reference Range Interpretation Comments MAGNESIUM (test code = 5975042990) 1.8 mg/dL 1.7-2.4 Lab Interpretation (test code = Normal 48315-1) [facility] Thhfa1776-33-20 11:07:00 Test Item Value Reference Range Interpretation Comments PHOSPHORUS (test code = 4869206237) 3.2 mg/dL 2.5-5 Lab Interpretation (test code = Normal 59717-8) [facility] with Zebiwcydlqfx4596-10-78 10:42:00 Test Item Value Reference Range Interpretation Comments WBC (test code = See_Comment [Automated 3253-2) message] The sy stem which generated this result transmitted reference range : 4.20 - 10.70 10*3/?L. The reference range was not used to interpret this result as normal/abnormal . RBC (test code = See_Comment L [Automated 200-7) message] The sy stem which generated this [...] RDW-SD (test code = 45.9 fL 38.5-51.6 58256-4) RDW-CV (test code = 15.4 % 12.1-15.4 788-0) PLT (test code = See_Comment H [Automated 777-3) message] The sy stem which generated this result transmitted reference range : 150 - 328 10*3/ ?L. The reference r meredith was not used to interpret this result as normal/abnormal . MPV (test code = 8.9 fL 9.8-13 L 65135-3) NRBC/100 WBC (test See_Comment [Automat ed code = 8106077639) message] The system which generated this result transmitted reference range : 0.0 - 10.0 /100 WBCs. The refer ence range was not u sed to interpret th is result as normal/abnormal . NRBC x10^3 (test code <0.01 See_Comment [Auto mated = 5466303424) message] The s ystem which generated this result transmitted reference range : 10*3/?L. The reference range was not used to interpret this result as normal/abnormal . GRAN MAT (NEUT) % 77.7 % (test code = 770-8) IMM GRAN % (test code 0.50 % = 0745256854) LYMPH % (test code = 11.8 % 736-9) MONO % (test code = 8.4 % 5905-5) EOS % (test code = 1.4 % 713-8) BASO % (test code = 0.2 % 706-2) GRAN MAT x10^3(ANC) 6.48 10*3/uL 1.99-6.95 (test code = 4570621208) IMM GRAN x10^3 (test 0.04 10*3/uL 0-0.06 code = 6676810162) LYMPH x10^3 (test code 0.98 10*3/uL 1.09-3.23 L = 731-0) MONO x10^3 (test code 0.70 10*3/uL 0.36-1.02 = 742-7) EOS x10^3 (test code = 0.12 10*3/uL 0.06-0.53 711-2) BASO x10^3 (test code <0.03 0.01-0.09 = 704-7) Lab Interpretation Abnormal (test code = 07309-8) [facility] Metabolic Panel (NA, K, CL, CO2, GLUCOSE, BUN, CREATININE, CA)2020-05-08 12:18:00 Test Item Value Reference Range Interpretation Comments NA (test code = 136 mmol/L 135-145 5506263597) K (test code = 4.1 mmol/L 3.5-5 6810417349) CL (test code = 102 mmol/L 98-108 4973487729) CO2 TOTAL (test code = 26 mmol/L 23-31 7463996353) AGAP (test code = 2-16 2305905944) BUN (test code = 18 mg/dL 7-23 7955357062) GLUCOSE (test code = 99 mg/dL 70-110 6152212487) CREATININE (test code = 0.63 mg/dL 0.6-1.25 2147492391) CALCIUM (test code = 8.4 mg/dL 8.6-10.6 L 8392986369) eGFR Calculation mL/min/1.73m2 (Non-) (test code = 0827792836) eGFR Calculation mL/min/1.73m2 () (test code = 3223346730) GILBERTO (test code = GILBERTO) Association of [...] tests). Lab Interpretation Abnormal (test code = 33015-9) [facility] Atrhw9431-85-34 12:18:00 Test Item Value Reference Range Interpretation Comments MAGNESIUM (test code = 9526564848) 1.8 mg/dL 1.7-2.4 Lab Interpretation (test code = Normal 20960-0) [facility] Gvjbn7445-53-35 12:18:00 Test Item Value Reference Range Interpretation Comments PHOSPHORUS (test code = 3262560503) 3.2 mg/dL 2.5-5 Lab Interpretation (test code = Normal 48176-0) [facility] with Ohbghdniqphi3900-51-13 11:50:00 Test Item Value Reference Range Interpretation Comments WBC (test code = See_Comment [Automated 8475-2) message] The sy stem which generated this result transmitted reference range : 4.20 - 10.70 10*3/?L. The reference range was not used to interpret this result as normal/abnormal . RBC (test code = See_Comment L [Automated 463-8) message] The sy stem which generated this [...] RDW-SD (test code = 46.9 fL 38.5-51.6 75073-1) RDW-CV (test code = 15.2 % 12.1-15.4 788-0) PLT (test code = See_Comment H [Automated 777-3) message] The sy stem which generated this result transmitted reference range : 150 - 328 10*3/ ?L. The reference r meredith was not used to interpret this result as normal/abnormal . MPV (test code = 9.0 fL 9.8-13 L 09226-5) NRBC/100 WBC (test See_Comment [Automat ed code = 4231410730) message] The system which generated this result transmitted reference range : 0.0 - 10.0 /100 WBCs. The refer ence range was not u sed to interpret th is result as normal/abnormal . NRBC x10^3 (test code <0.01 See_Comment [Auto mated = 9984545634) message] The s ystem which generated this result transmitted reference range : 10*3/?L. The reference range was not used to interpret this result as normal/abnormal . GRAN MAT (NEUT) % 76.3 % (test code = 770-8) IMM GRAN % (test code 0.70 % = 1693541165) LYMPH % (test code = 13.3 % 736-9) MONO % (test code = 8.4 % 5905-5) EOS % (test code = 1.1 % 713-8) BASO % (test code = 0.2 % 706-2) GRAN MAT x10^3(ANC) 6.93 10*3/uL 1.99-6.95 (test code = 8705456154) IMM GRAN x10^3 (test 0.06 10*3/uL 0-0.06 code = 8871032490) LYMPH x10^3 (test code 1.21 10*3/uL 1.09-3.23 = 731-0) MONO x10^3 (test code 0.76 10*3/uL 0.36-1.02 = 742-7) EOS x10^3 (test code = 0.10 10*3/uL 0.06-0.53 711-2) BASO x10^3 (test code <0.03 0.01-0.09 = 704-7) Lab Interpretation Abnormal (test code = 77671-5) [facility]HETER PERITONEAL OR EGBRIMYOEUTYIWH5843-92-17 13:09:04 Technically successful drainage catheter placement in [...] of the tract was performed. A 14 Argentine locking pigtail michael inagecatheter was placed in the collection and samples were sent for laboratoryanalysis. The left upper quadrant collection was identified under ultrasound and CTguidance. A 17-gauge coaxial needle wasadvanced into the collection. AnAmplatz wire was advanced into the collection over the needle and serialdilatation of the tract was performed. A 12 Argentine locking pigtail drainagecatheter was placed within the collection and samples were sent forlaboratory analysis. The right lower quadrant collectionwas identified under ultrasound and CTguidance. A 17-gauge coaxial needle was advanced into the colle ction.Serial dilatation was performed over the Amplatz wire. A 14 Argentine lockingpigtail drainage catheter was placed within the collection. Proper positioning was confirmed with postprocedural CT imaging of theabdomen and pelvis. The catheters were sutured to the skin. ESTIMATED BLOOD LOSS: <3cc. CONDITION: Stable. FINDINGS: Initial CT images demonstrate multiple abscesses in the left upper, rightupper, and right lower quadrants. [facility], Radiant Results Inft User - [...] was obtained. Prior to beginning the procedure, [place] Protocolwas performed to confirm the patient's identity [...] of the tract was performed. A 14 Argentine lockingpigtail drainagecatheter was placed in the collection and samples were sent for laboratoryanalysis.The left upper quadrant collection was identified under ultrasound and CTguidance. A 17-gauge coaxial needle was advanced into the collection. AnAmplatz wire was advanced into the collection over the needle and serialdilatation of the tract was performed. A 12 Argentine locking pigtail drainagecatheter wasplaced within the collection and samples were sent forlaboratory analysis.The right lower quadrant collection was identified under ultrasound and CTguidance. A 17-gauge coaxial needle was advanced intothe collection.Serial dilatation was performed over the Amplatz wire. A 14 Argentine lockingpigtail drainage catheter was placed within the [...] lower quadrant collections.Preliminary ReportDictated by Resident: Sukhjinder Fonseca, Nixon Prince MD., have reviewed this study and agree withtheabove report.I, as teaching physician, was present during the entire procedure and/orduring the botello components.[facility] Met[facility] (NA, K, CL, CO2, GLUCOSE, BUN, CREATININE, CA) 2020-05-07 11:49:00 Test Item Value Reference Range Interpretation Comments NA (test code = 132 mmol/L 135-145 L 5738356185) K (test code = 4.0 mmol/L 3.5-5 9732963001) CL (test code = 101 mmol/L 98-108 1853066167) CO2 TOTAL (test code = 23 mmol/L 23-31 1974487612) AGAP (test code = 2-16 2269840122) BUN (test code = 21 mg/dL 7-23 1453512269) GLUCOSE (test code = 98 mg/dL 70-110 6202574757) CREATININE (test code = 0.65 mg/dL 0.6-1.25 3162047788) CALCIUM (test code = 8.4 mg/dL 8.6-10.6 L 6653119542) eGFR Calculation mL/min/1.73m2 (Non-) (test code = 0715292104) eGFR Calculation mL/min/1.73m2 () (test code = 6725760043) GILBERTO (test code = GILBERTO) Association of [...] tests). Lab Interpretation Abnormal (test code = 18138-3) [facility] Hrkwp1100-47-35 11:49:00 Test Item Value Reference Range Interpretation Comments MAGNESIUM (test code = 8863419777) 1.5 mg/dL 1.7-2.4 L Lab Interpretation (test code = Abnormal 45917-3) [facility] Tqxit5793-29-12 11:49:00 Test Item Value Reference Range Interpretation Comments PHOSPHORUS (test code = 7085460269) 2.7 mg/dL 2.5-5 Lab Interpretation (test code = Normal 70376-0) [facility] with Pjrighcchghv7670-51-81 11:31:00 Test Item Value Reference Range Interpretation [...] RDW-SD (test code = 47.2 fL 38.5-51.6 49312-9) RDW-CV (test code = 15.3 % 12.1-15.4 788-0) PLT (test code = See_Comment H [Automated 777-3) message] The sy stem which generated this result transmitted reference range : 150 - 328 10*3/ ?L. The reference r meredith was not used to interpret this result as normal/abnormal . MPV (test code = 9.4 fL 9.8-13 L 94339-5) NRBC/100 WBC (test See_Comment [Automat ed code = 9889041016) message] The system which generated this result transmitted reference range : 0.0 - 10.0 /100 WBCs. The refer ence range was not u sed to interpret th is result as normal/abnormal . NRBC x10^3 (test code <0.01 See_Comment [Auto mated = 1799631249) message] The s ystem which generated this result transmitted reference range : 10*3/?L. The reference range was not used to interpret this result as normal/abnormal . GRAN MAT (NEUT) % 81.1 % (test code = 770-8) IMM GRAN % (test code 0.80 % = 1739748515) LYMPH % (test code = 9.5 % 736-9) MONO % (test code = 7.8 % 5905-5) EOS % (test code = 0.6 % 713-8) BASO % (test code = 0.2 % 706-2) GRAN MAT x10^3(ANC) 8.26 10*3/uL 1.99-6.95 H (test code = 6530395594) IMM GRAN x10^3 (test 0.08 10*3/uL 0-0.06 H code = 5426502125) LYMPH x10^3 (test code 0.97 10*3/uL 1.09-3.23 L = 731-0) MONO x10^3 (test code 0.79 10*3/uL 0.36-1.02 = 742-7) EOS x10^3 (test code = 0.06 10*3/uL 0.06-0.53 711-2) BASO x10^3 (test code <0.03 0.01-0.09 = 704-7) Lab Interpretation Abnormal (test code = 10744-4) [facility] Metabolic Panel (NA, K, CL, CO2, GLUCOSE, BUN, CREATININE, CA)2020-05-06 15:02:00 Test Item Value Reference Range Interpretation Comments NA (test code = 134 mmol/L 135-145 L 2773172027) K (test code = 4.3 mmol/L 3.5-5 4259399317) CL (test code = 105 mmol/L 98-108 9964975463) CO2 TOTAL (test code = 23 mmol/L 23-31 9848129935) AGAP (test code = 2-16 1320632521) BUN (test code = 18 mg/dL 7-23 8197563203) GLUCOSE (test code = 96 mg/dL 70-110 3117516990) CREATININE (test code = 0.67 mg/dL 0.6-1.25 2398361064) CALCIUM (test code = 8.5 mg/dL 8.6-10.6 L 9891503196) eGFR Calculation mL/min/1.73m2 (Non-) (test code = 5301071446) eGFR Calculation mL/min/1.73m2 () (test code = 3054105483) GILBERTO (test code = GILBERTO) Association of [...] tests). Lab Interpretation Abnormal (test code = 65561-8) [facility] Qvkgu5384-88-76 15:02:00 Test Item Value Reference Range Interpretation Comments MAGNESIUM (test code = 2293970154) 1.8 mg/dL 1.7-2.4 Lab Interpretation (test code = Normal 37322-2) [facility] Gtwep6421-54-74 15:02:00 Test Item Value Reference Range Interpretation Comments PHOSPHORUS (test code = 7294578172) 3.2 mg/dL 2.5-5 Lab Interpretation (test code = Normal 83050-9) [facility] with Gmkffvsznaho4470-42-49 10:41:00 Test Item Value Reference Range Interpretation [...] RDW-SD (test code = 47.0 fL 38.5-51.6 58439-6) RDW-CV (test code = 15.2 % 12.1-15.4 788-0) PLT (test code = See_Comment H [Automated 777-3) message] The sy stem which generated this result transmitted reference range : 150 - 328 10*3/ ?L. The reference r meredith was not used to interpret this result as normal/abnormal . MPV (test code = 9.1 fL 9.8-13 L 12603-6) NRBC/100 WBC (test See_Comment [Automat ed code = 6128508423) message] The system which generated this result transmitted reference range : 0.0 - 10.0 /100 WBCs. The refer ence range was not u sed to interpret th is result as normal/abnormal . NRBC x10^3 (test code <0.01 See_Comment [Auto mated = 0752188839) message] The s ystem which generated this result transmitted reference range : 10*3/?L. The reference range was not used to interpret this result as normal/abnormal . GRAN MAT (NEUT) % 77.3 % (test code = 770-8) IMM GRAN % (test code 0.60 % = 7865399749) LYMPH % (test code = 11.6 % 736-9) MONO % (test code = 9.5 % 5905-5) EOS % (test code = 0.8 % 713-8) BASO % (test code = 0.2 % 706-2) GRAN MAT x10^3(ANC) 6.69 10*3/uL 1.99-6.95 (test code = 3546767389) IMM GRAN x10^3 (test 0.05 10*3/uL 0-0.06 code = 8269405588) LYMPH x10^3 (test code 1.00 10*3/uL 1.09-3.23 L = 731-0) MONO x10^3 (test code 0.82 10*3/uL 0.36-1.02 = 742-7) EOS x10^3 (test code = 0.07 10*3/uL 0.06-0.53 711-2) BASO x10^3 (test code <0.03 0.01-0.09 = 704-7) Lab Interpretation Abnormal (test code = 10152-8) [facility] Packed RBC (in units), 1 Units 2020-05-05 15:59:33 Test Item Value Reference Range Interpretation Comments Cross Match Result Compatible (test code = 4409) ISBT Blood Type Code (test code = 365312) Unit Blood Type (test O Pos code = 4410) Unit Number (test [id number] code = 4411) Blood Expiration Date & Time (test code = 574778) Status Information Issued (test code = 4412) Product Red Blood Cells Identification (test code = 4413) Product Code (test [id number] Performed at [facility] code = 4414) Laboratory Services - [facility] Blood Y[address]ui[address] [facility] s [address]Xmkl Free: [phone] A No. [id number] [facility] AllenType and Screen - ONCE Qomsotf3001-73-26 11:34:29 Test Item Value Reference Range Interpretation Comments ABO & RH (test code O POSITIVE Performe d at [facility] = 20) Laboratory Serv ice - [facility] Blood Bank3 [address] [facility] s [address]Obhw Free: [phone] A No. [id number] IAT (test code = Negative Performed a t [facility] 1185) Laboratory Serv [facility] Blood [address] [place], [place] [address]jo [facility] lp[facility]z [address]Agpj Free: [phone] A No. [id number] [facility]PREALBUMIN2020-09-12 10:19:00 Test Item Value Reference Range Interpretation Comments PALB (test code = 10594-9) 8.0 mg/dL 18-45 L Lab Interpretation (test code = Abnormal 15153-6) [facility] Metabolic Panel (NA, K, CL, CO2, GLUCOSE, BUN, CREATININE, CA)2020-05-05 10:12:00 Test Item Value Reference Range Interpretation Comments NA (test code = 135 mmol/L 135-145 0754132399) K (test code = 4.1 mmol/L 3.5-5 0246726145) CL (test code = 106 mmol/L 98-108 8680242944) CO2 TOTAL (test code = 22 mmol/L 23-31 L 1244378117) AGAP (test code = 2-16 0997051181) BUN (test code = 25 mg/dL 7-23 H 8143205320) GLUCOSE (test code = 91 mg/dL 70-110 0353577555) CREATININE (test code = 0.68 mg/dL 0.6-1.25 3199550759) CALCIUM (test code = 7.4 mg/dL 8.6-10.6 L 3731710688) eGFR Calculation mL/min/1.73m2 (Non-) (test code = 0789699709) eGFR Calculation mL/min/1.73m2 () (test code = 7318886856) GILBERTO (test code = GILBERTO) Association of [...] tests). Lab Interpretation Abnormal (test code = 69495-8) [facility] Zlmgr0244-15-02 10:12:00 Test Item Value Reference Range Interpretation Comments MAGNESIUM (test code = 4208144763) 1.8 mg/dL 1.7-2.4 Lab Interpretation (test code = Normal 62622-4) [facility] AllenPh[facility] Esvcb9654-36-71 10:12:00 Test Item Value Reference Range Interpretation Comments PHOSPHORUS (test code = 4017694143) 3.1 mg/dL 2.5-5 Lab Interpretation (test code = Normal 08392-7) [facility] with Pdwazazerjnd8811-71-25 09:18:00 Test Item Value Reference Range Interpretation Comments WBC (test code = See_Comment [Automated 8990-2) message] The sy stem which generated this result transmitted reference range : 4.20 - 10.70 10*3/?L. The reference range was not used to interpret this result as normal/abnormal . RBC (test code = See_Comment L [Automated 418-8) message] The sy stem which generated this [...] RDW-SD (test code = 48.4 fL 38.5-51.6 39283-3) RDW-CV (test code = 15.7 % 12.1-15.4 H 788-0) PLT (test code = See_Comment H [Automated 777-3) message] The sy stem which generated this result transmitted reference range : 150 - 328 10*3/ ?L. The reference r meredith was not used to interpret this result as normal/abnormal . MPV (test code = 9.1 fL 9.8-13 L 40118-9) NRBC/100 WBC (test See_Comment [Automat ed code = 8883771506) message] The system which generated this result transmitted reference range : 0.0 - 10.0 /100 WBCs. The refer ence range was not u sed to interpret th is result as normal/abnormal . NRBC x10^3 (test code <0.01 See_Comment [Auto mated = 2186405345) message] The s ystem which generated this result transmitted reference range : 10*3/?L. The reference range was not used to interpret this result as normal/abnormal . GRAN MAT (NEUT) % 79.0 % (test code = 770-8) IMM GRAN % (test code 0.70 % = 7079131212) LYMPH % (test code = 10.6 % 736-9) MONO % (test code = 8.9 % 5905-5) EOS % (test code = 0.5 % 713-8) BASO % (test code = 0.3 % 706-2) GRAN MAT x10^3(ANC) 7.81 10*3/uL 1.99-6.95 H (test code = 2241259055) IMM GRAN x10^3 (test 0.07 10*3/uL 0-0.06 H code = 8558363813) LYMPH x10^3 (test code 1.05 10*3/uL 1.09-3.23 L = 731-0) MONO x10^3 (test code 0.88 10*3/uL 0.36-1.02 = 742-7) EOS x10^3 (test code = 0.05 10*3/uL 0.06-0.53 L 711-2) BASO x10^3 (test code 0.03 10*3/uL 0.01-0.09 = 704-7) Lab Interpretation Abnormal (test code = 63103-9) [facility] Test Item Value Reference Range Interpretation Comments APPEARANCE (test code = Hazy Clear A 2286853056) COLOR (test code = Yellow Yellow 7140715401) PH (test code = 4.8-8.0 8292904573) SP GRAVITY (test code = 1.003-1.030 H 7454559875) GLU U QUAL (test code = Normal Normal 2286077923) BLOOD (test code = Negative Negative 3216341622) KETONES (test code = Negative Negative 7104638032) PROTEIN (test code = Negative Negative 2887-8) UROBILIN (test code = Normal Normal 5020779021) BILIRUBIN (test code = Negative Negative 6503274043) NITRITE (test code = Negative Negative 9753038503) LEUK ROGER (test code = Negative Negative 9998360830) RBC/HPF (test code = See_Comment H [Autom ated message] 4663473050) The system [employer] generated this result transmitted ref erence range: 0 - 3 HP F. The reference range was not used to int erpret this result as normal/abnormal . WBC/HPF (test code = See_Comment [Autom ated message] 6716529094) The system [employer] generated this result transmitted ref erence range: 0 - 5 HP F. The reference range was not used to int erpret this result as normal/abnormal . BACTERIA (test code = Few Negative A 9740540028) MUCOUS (test code = Slight Negative LPF A 7047992450) CA OXALATE (test code = See_Comment H [Au tomated message] 1767233230) The system [employer] generated this result transmitted ref erence range: <=1 HPF. The reference range was not used to int erpret this result as normal/abnormal . Lab Interpretation (test Abnormal code = 28208-2) [facility] [id number] 04:56:59 1. ?Interval removal of left subdiaphragmatic, [...] reviewed this study and agree with the abovereport.[facility]APID TESTING)2020-05-05 03:40:00 Test Item Value Reference Range Interpretation Comments SARS-CoV-2 Rapid ID NOW Not Detected Not Detected (test code = 67014-1) GILBERTO (test code = GILBERTO) ID NOW COVID-19 Assay is an isothermal nucleic acid amplification test intended for the qualitative detection of nucleic acid from SARS-CoV-2 viral RNA in nasopharyngeal ([employer]) specimens. It is used under Emergency Use [...] indicated. Lab Interpretation Normal (test code = 26093-3) [facility]. METABOLIC PANEL (37140)2020-05-05 03:02:00 Test Item Value Reference Range Interpretation Comments NA (test code = 134 mmol/L 135-145 L 4396425985) K (test code = 4.7 mmol/L 3.5-5 3352550997) CL (test code = 99 mmol/L 98-108 5971511068) CO2 TOTAL (test code = 24 mmol/L 23-31 1920774041) AGAP (test code = 2-16 0488448341) BUN (test code = 37 mg/dL 7-23 H 2193106429) GLUCOSE (test code = 105 mg/dL 70-110 5114620144) CREATININE (test code = 0.94 mg/dL 0.6-1.25 5342608382) TOTAL BILI (test code = 0.5 mg/dL 0.1-1.0 0090338252) CALCIUM (test code = 8.8 mg/dL 8.6-10.6 1443628985) T PROTEIN (test code = 6.2 g/dL 6.3-8.2 L 1254847777) ALBUMIN (test code = 3.0 g/dL 3.5-5 L 3674618705) ALK PHOS (test code = 150 U/L 34-122 H 7854290793) ALTv (test code = 28 U/L 5-50 1742-6) AST(SGOT) (test code = 23 U/L 13-40 3413749573) eGFR Calculation mL/min/1.73m2 (Non-) (test code = 4724545637) eGFR Calculation mL/min/1.73m2 () (test code = 9208826518) GILBERTO (test code = GILBERTO) Association of [...] tests). Lab Interpretation Abnormal (test code = 94304-1) [facility] 03:[facility]00 Test Item Value Reference Range Interpretation Comments LIPASE (test code = 9951671442) 323 U/L 0-220 H Lab Interpretation (test code = Abnormal 63867-4) [facility] WITH [id number] 02:43:00 Test Item Value Reference Range Interpretation Comments WBC (test code = See_Comment H [Automated 0300-2) message] The system which generated this result [...] RDW-SD (test code = 45.7 fL 38.5-51.6 10326-2) RDW-CV (test code = 15.4 % 12.1-15.4 788-0) PLT (test code = See_Comment H [Automated 777-3) message] The system which generated this result transmit dain reference range : 150 - 328 10*3/ ?L. The reference range was not u sed to interpret th is result as normal/abnormal . MPV (test code = 8.9 fL 9.8-13 L 73475-1) NRBC/100 WBC (test See_Comment [Automat ed code = 1241535682) message] The system which generated this result transmit dain reference range : 0.0 - 10.0 /100 WBCs. The reference range was not used to interpret this result as normal/abnormal . NRBC x10^3 (test code <0.01 See_Comment [Auto mated = 9566633835) message] The system which generated this result transmit dain reference range : 10*3/?L. The reference range was not used to interpret this result as normal/abnormal . GRAN MAT (NEUT) % 82.6 % (test code = 770-8) IMM GRAN % (test code 0.60 % = 5268943114) LYMPH % (test code = 8.1 % 736-9) MONO % (test code = 8.1 % 5905-5) EOS % (test code = 0.4 % 713-8) BASO % (test code = 0.2 % 706-2) GRAN MAT x10^3(ANC) 11.18 10*3/uL 1.99-6.95 H (test code = 0029786485) IMM GRAN x10^3 (test 0.08 10*3/uL 0-0.06 H code = 9436853365) LYMPH x10^3 (test code 1.10 10*3/uL 1.09-3.23 = 731-0) MONO x10^3 (test code 1.09 10*3/uL 0.36-1.02 H = 742-7) EOS x10^3 (test code = 0.05 10*3/uL 0.06-0.53 L 711-2) BASO x10^3 (test code 0.03 10*3/uL 0.01-0.09 = 704-7) Lab Interpretation Abnormal (test code = 86515-7) [facility] METABOLIC PANEL (NA, K, CL, CO2, GLUCOSE, BUN, CREATININE, CA)2020-05-01 12:25:00 Test Item Value Reference Range Interpretation Comments NA (test code = 131 mmol/L 135-145 L 4117880084) K (test code = 4.7 mmol/L 3.5-5 5430649359) CL (test code = 97 mmol/L 98-108 L 7461983054) CO2 TOTAL (test code = 25 mmol/L 23-31 4015717164) AGAP (test code = 2-16 5369426956) BUN (test code = 30 mg/dL 7-23 H 9331434990) GLUCOSE (test code = 111 mg/dL 70-110 H 7417908362) CREATININE (test code = 0.69 mg/dL 0.6-1.25 6128563910) CALCIUM (test code = 9.3 mg/dL 8.6-10.6 8020650347) eGFR Calculation mL/min/1.73m2 (Non-) (test code = 2724866181) eGFR Calculation mL/min/1.73m2 () (test code = 1452645103) GILBERTO (test code = GILBERTO) Association of [...] tests). Lab Interpretation Abnormal (test code = 31322-2) [facility] 12:07:00 Test Item Value Reference Range Interpretation Comments MAGNESIUM (test code = 2855146122) 2.3 mg/dL 1.7-2.4 Lab Interpretation (test code = Normal 50800-6) [facility]2020-09-08 12:07:00 Test Item Value Reference Range Interpretation Comments PHOSPHORUS (test code = 1517429754) 4.6 mg/dL 2.5-5 Lab Interpretation (test code = Normal 78988-9) [facility] [id number] 11:44:00 Test Item Value Reference Range Interpretation [...] RDW-SD (test code = 44.9 fL 38.5-51.6 18997-3) RDW-CV (test code = 14.8 % 12.1-15.4 788-0) PLT (test code = See_Comment H [Automated 777-3) message] The system which generated this result transmit dain reference range : 150 - 328 10*3/ ?L. The reference range was not u sed to interpret th is result as normal/abnormal . MPV (test code = 9.1 fL 9.8-13 L 34249-5) NRBC/100 WBC (test See_Comment [Automat ed code = 6941531441) message] The system which generated this result transmit dain reference range : 0.0 - 10.0 /100 WBCs. The reference range was not used to interpret this result as normal/abnormal . NRBC x10^3 (test code <0.01 See_Comment [Auto mated = 0380136618) message] The system which generated this result transmit dain reference range : 10*3/?L. The reference range was not used to interpret this result as normal/abnormal . GRAN MAT (NEUT) % 81.4 % (test code = 770-8) IMM GRAN % (test code 0.70 % = 6886370439) LYMPH % (test code = 8.7 % 736-9) MONO % (test code = 8.5 % 5905-5) EOS % (test code = 0.3 % 713-8) BASO % (test code = 0.4 % 706-2) GRAN MAT x10^3(ANC) 12.01 10*3/uL 1.99-6.95 H (test code = 8084495390) IMM GRAN x10^3 (test 0.10 10*3/uL 0-0.06 H code = 8975237608) LYMPH x10^3 (test code 1.28 10*3/uL 1.09-3.23 = 731-0) MONO x10^3 (test code 1.25 10*3/uL 0.36-1.02 H = 742-7) EOS x10^3 (test code = 0.04 10*3/uL 0.06-0.53 L 711-2) BASO x10^3 (test code 0.06 10*3/uL 0.01-0.09 = 704-7) Lab Interpretation Abnormal (test code = 83161-8) [facility] METABOLIC PANEL (NA, K, CL, CO2, GLUCOSE, BUN, CREATININE, CA)2020-04-29 12:08:00 Test Item Value Reference Range Interpretation Comments NA (test code = 130 mmol/L 135-145 L 0638867722) K (test code = 5.0 mmol/L 3.5-5 7265203290) CL (test code = 94 mmol/L 98-108 L 7317803091) CO2 TOTAL (test code = 27 mmol/L 23-31 0071859762) AGAP (test code = 2-16 2885887203) BUN (test code = 35 mg/dL 7-23 H 0543313136) GLUCOSE (test code = 116 mg/dL 70-110 H 3681631350) CREATININE (test code = 0.76 mg/dL 0.6-1.25 3928899945) CALCIUM (test code = 9.0 mg/dL 8.6-10.6 9819813658) eGFR Calculation mL/min/1.73m2 (Non-) (test code = 7481028672) eGFR Calculation mL/min/1.73m2 () (test code = 4908837933) GILBERTO (test code = GILBERTO) Association of [...] tests). Lab Interpretation Abnormal (test code = 82884-4) [facility] 12:01:00 Test Item Value Reference Range Interpretation Comments MAGNESIUM (test code = 6114561755) 2.3 mg/dL 1.7-2.4 Lab Interpretation (test code = Normal 56062-3) [facility] 12:01:00 Test Item Value Reference Range Interpretation Comments PHOSPHORUS (test code = 8878249436) 4.5 mg/dL 2.5-5 Lab Interpretation (test code = Normal 22992-5) [facility] [id number] 11:52:00 Test Item Value Reference Range Interpretation [...] RDW-SD (test code = 44.4 fL 38.5-51.6 50436-1) RDW-CV (test code = 14.7 % 12.1-15.4 788-0) PLT (test code = See_Comment H [Automated 777-3) message] The system which generated this result transmit dain reference range : 150 - 328 10*3/ ?L. The reference range was not u sed to interpret th is result as normal/abnormal . MPV (test code = 9.1 fL 9.8-13 L 04300-6) NRBC/100 WBC (test See_Comment [Automat ed code = 0719708385) message] The system which generated this result transmit dain reference range : 0.0 - 10.0 /100 WBCs. The reference range was not used to interpret this result as normal/abnormal . NRBC x10^3 (test code <0.01 See_Comment [Auto mated = 1374509306) message] The system which generated this result transmit dain reference range : 10*3/?L. The reference range was not used to interpret this result as normal/abnormal . GRAN MAT (NEUT) % 82.5 % (test code = 770-8) IMM GRAN % (test code 1.30 % = 6379501373) LYMPH % (test code = 7.1 % 736-9) MONO % (test code = 8.5 % 5905-5) EOS % (test code = 0.3 % 713-8) BASO % (test code = 0.3 % 706-2) GRAN MAT x10^3(ANC) 14.27 10*3/uL 1.99-6.95 H (test code = 6743478418) IMM GRAN x10^3 (test 0.23 10*3/uL 0-0.06 H code = 4557343116) LYMPH x10^3 (test code 1.23 10*3/uL 1.09-3.23 = 731-0) MONO x10^3 (test code 1.47 10*3/uL 0.36-1.02 H = 742-7) EOS x10^3 (test code = 0.05 10*3/uL 0.06-0.53 L 711-2) BASO x10^3 (test code 0.06 10*3/uL 0.01-0.09 = 704-7) Lab Interpretation Abnormal (test code = 07717-9) [facility] METABOLIC PANEL (NA, K, CL, CO2, GLUCOSE, BUN, CREATININE, CA)2020-04-28 10:15:00 Test Item Value Reference Range Interpretation Comments NA (test code = 130 mmol/L 135-145 L 2931565898) K (test code = 5.3 mmol/L 3.5-5 H 7439617668) CL (test code = 91 mmol/L 98-108 L 9107363373) CO2 TOTAL (test code = 29 mmol/L 23-31 2361591045) AGAP (test code = 2-16 0166594094) BUN (test code = 32 mg/dL 7-23 H 9962418251) GLUCOSE (test code = 101 mg/dL 70-110 4684048405) CREATININE (test code = 0.74 mg/dL 0.6-1.25 5461334818) CALCIUM (test code = 9.5 mg/dL 8.6-10.6 6494016274) eGFR Calculation mL/min/1.73m2 (Non-) (test code = 6753742537) eGFR Calculation mL/min/1.73m2 () (test code = 3147875731) GILBERTO (test code = GILBERTO) Association of [...] tests). Lab Interpretation Abnormal (test code = 98139-8) [facility] 10:12:00 Test Item Value Reference Range Interpretation Comments MAGNESIUM (test code = 4018572657) 2.3 mg/dL 1.7-2.4 Lab Interpretation (test code = Normal 27827-8) [facility] WITH [id number] 09:55:00 Test Item Value Reference Range Interpretation [...] RDW-SD (test code = 45.1 fL 38.5-51.6 47312-8) RDW-CV (test code = 14.7 % 12.1-15.4 788-0) PLT (test code = See_Comment H [Automated 777-3) message] The system which generated this result transmit dain reference range : 150 - 328 10*3/ ?L. The reference range was not u sed to interpret th is result as normal/abnormal . MPV (test code = 9.5 fL 9.8-13 L 13325-2) NRBC/100 WBC (test See_Comment [Automat ed code = 7648614928) message] The system which generated this result transmit dain reference range : 0.0 - 10.0 /100 WBCs. The reference range was not used to interpret this result as normal/abnormal . NRBC x10^3 (test code <0.01 See_Comment [Auto mated = 3940472346) message] The system which generated this result transmit dain reference range : 10*3/?L. The reference range was not used to interpret this result as normal/abnormal . GRAN MAT (NEUT) % 81.1 % (test code = 770-8) IMM GRAN % (test code 1.40 % = 3443359188) LYMPH % (test code = 8.6 % 736-9) MONO % (test code = 7.9 % 5905-5) EOS % (test code = 0.5 % 713-8) BASO % (test code = 0.5 % 706-2) GRAN MAT x10^3(ANC) 14.68 10*3/uL 1.99-6.95 H (test code = 3221731036) IMM GRAN x10^3 (test 0.25 10*3/uL 0-0.06 H code = 7422830055) LYMPH x10^3 (test code 1.55 10*3/uL 1.09-3.23 = 731-0) MONO x10^3 (test code 1.43 10*3/uL 0.36-1.02 H = 742-7) EOS x10^3 (test code = 0.09 10*3/uL 0.06-0.53 711-2) BASO x10^3 (test code 0.09 10*3/uL 0.01-0.09 = 704-7) Lab Interpretation Abnormal (test code = 91235-2) [facility] (NA, K, CL, CO2, GLUCOSE, BUN, CREATININE, CA)2020-04-27 10:20:00 Test Item Value Reference Range Interpretation Comments NA (test code = 130 mmol/L 135-145 L 3733405092) K (test code = 4.5 mmol/L 3.5-5 6350945554) CL (test code = 93 mmol/L 98-108 L 0136233306) CO2 TOTAL (test code = 28 mmol/L 23-31 9929893437) AGAP (test code = 2-16 3846420463) BUN (test code = 31 mg/dL 7-23 H 0683738533) GLUCOSE (test code = 102 mg/dL 70-110 7460102117) CREATININE (test code = 0.81 mg/dL 0.6-1.25 7704654250) CALCIUM (test code = 9.0 mg/dL 8.6-10.6 8498004839) eGFR Calculation mL/min/1.73m2 (Non-) (test code = 7267968635) eGFR Calculation mL/min/1.73m2 () (test code = 9753716200) GILBERTO (test code = GILBERTO) Association of [...] tests). Lab Interpretation Abnormal (test code = 96299-5) [facility] 10:20:00 Test Item Value Reference Range Interpretation Comments MAGNESIUM (test code = 3074491425) 2.2 mg/dL 1.7-2.4 Lab Interpretation (test code = Normal 02603-9) [facility] [id number] 09:49:00 Test Item Value Reference Range Interpretation [...] RDW-SD (test code = 45.2 fL 38.5-51.6 75284-0) RDW-CV (test code = 14.5 % 12.1-15.4 788-0) PLT (test code = See_Comment H [Automated 777-3) message] The system which generated this result transmit dain reference range : 150 - 328 10*3/ ?L. The reference range was not u sed to interpret th is result as normal/abnormal . MPV (test code = 9.0 fL 9.8-13 L 72197-6) NRBC/100 WBC (test See_Comment [Automat ed code = 2727118099) message] The system which generated this result transmit dain reference range : 0.0 - 10.0 /100 WBCs. The reference range was not used to interpret this result as normal/abnormal . NRBC x10^3 (test code <0.01 See_Comment [Auto mated = 4204949646) message] The system which generated this result transmit dani reference range : 10*3/?L. The reference range was not used to interpret this result as normal/abnormal . GRAN MAT (NEUT) % 80.9 % (test code = 770-8) IMM GRAN % (test code 1.30 % = 5633297126) LYMPH % (test code = 8.9 % 736-9) MONO % (test code = 7.7 % 5905-5) EOS % (test code = 0.6 % 713-8) BASO % (test code = 0.6 % 706-2) GRAN MAT x10^3(ANC) 13.18 10*3/uL 1.99-6.95 H (test code = 0627024011) IMM GRAN x10^3 (test 0.21 10*3/uL 0-0.06 H code = 2139580313) LYMPH x10^3 (test code 1.45 10*3/uL 1.09-3.23 = 731-0) MONO x10^3 (test code 1.26 10*3/uL 0.36-1.02 H = 742-7) EOS x10^3 (test code = 0.09 10*3/uL 0.06-0.53 711-2) BASO x10^3 (test code 0.10 10*3/uL 0.01-0.09 H = 704-7) Lab Interpretation Abnormal (test code = 84621-1) [facility] METABOLIC PANEL (NA, K, CL, CO2, GLUCOSE, BUN, CREATININE, CA)2020-04-26 11:29:00 Test Item Value Reference Range Interpretation Comments NA (test code = 133 mmol/L 135-145 L 5783102115) K (test code = 4.7 mmol/L 3.5-5 8525242834) CL (test code = 98 mmol/L 98-108 5563673477) CO2 TOTAL (test code = 25 mmol/L 23-31 0898188563) AGAP (test code = 2-16 1064822565) BUN (test code = 26 mg/dL 7-23 H 1259336306) GLUCOSE (test code = 97 mg/dL 70-110 9238537046) CREATININE (test code = 0.73 mg/dL 0.6-1.25 2225666878) CALCIUM (test code = 8.7 mg/dL 8.6-10.6 4912391113) eGFR Calculation mL/min/1.73m2 (Non-) (test code = 4443399436) eGFR Calculation mL/min/1.73m2 () (test code = 8992976115) GILBERTO (test code = GILBERTO) Association of [...] tests). Lab Interpretation Abnormal (test code = 97967-0) [facility] 11:29:00 Test Item Value Reference Range Interpretation Comments MAGNESIUM (test code = 3226043815) 2.1 mg/dL 1.7-2.4 Lab Interpretation (test code = Normal 71169-9) [facility] [id number] 10:27:00 Test Item Value Reference Range Interpretation [...] RDW-SD (test code = 45.4 fL 38.5-51.6 41464-8) RDW-CV (test code = 14.5 % 12.1-15.4 788-0) PLT (test code = See_Comment H [Automated 777-3) message] The system which generated this result transmit dain reference range : 150 - 328 10*3/ ?L. The reference range was not u sed to interpret th is result as normal/abnormal . MPV (test code = 9.3 fL 9.8-13 L 54888-9) NRBC/100 WBC (test See_Comment [Automat ed code = 7165575432) message] The system which generated this result transmit dain reference range : 0.0 - 10.0 /100 WBCs. The reference range was not used to interpret this result as normal/abnormal . NRBC x10^3 (test code <0.01 See_Comment [Auto mated = 2489996800) message] The system which generated this result transmit dain reference range : 10*3/?L. The reference range was not used to interpret this result as normal/abnormal . GRAN MAT (NEUT) % 79.6 % (test code = 770-8) IMM GRAN % (test code 1.30 % = 5237599269) LYMPH % (test code = 8.6 % 736-9) MONO % (test code = 9.3 % 5905-5) EOS % (test code = 0.8 % 713-8) BASO % (test code = 0.4 % 706-2) GRAN MAT x10^3(ANC) 12.46 10*3/uL 1.99-6.95 H (test code = 0459571497) IMM GRAN x10^3 (test 0.21 10*3/uL 0-0.06 H code = 2880364124) LYMPH x10^3 (test code 1.34 10*3/uL 1.09-3.23 = 731-0) MONO x10^3 (test code 1.45 10*3/uL 0.36-1.02 H = 742-7) EOS x10^3 (test code = 0.13 10*3/uL 0.06-0.53 711-2) BASO x10^3 (test code 0.07 10*3/uL 0.01-0.09 = 704-7) Lab Interpretation Abnormal (test code = 06164-7) [facility] METABOLIC PANEL (NA, K, CL, CO2, GLUCOSE, BUN, CREATININE, CA)2020-04-25 10:03:00 Test Item Value Reference Range Interpretation Comments NA (test code = 133 mmol/L 135-145 L 6773270549) K (test code = 4.6 mmol/L 3.5-5 8647213283) CL (test code = 96 mmol/L 98-108 L 2636008553) CO2 TOTAL (test code = 27 mmol/L 23-31 7803626653) AGAP (test code = 2-16 0274124255) BUN (test code = 21 mg/dL 7-23 0105687452) GLUCOSE (test code = 108 mg/dL 70-110 8031848441) CREATININE (test code = 0.76 mg/dL 0.6-1.25 5586481286) CALCIUM (test code = 9.5 mg/dL 8.6-10.6 4354844182) eGFR Calculation mL/min/1.73m2 (Non-) (test code = 6544976131) eGFR Calculation mL/min/1.73m2 () (test code = 5477519563) GILBERTO (test code = GILBERTO) Association of [...] tests). Lab Interpretation Abnormal (test code = 15637-9) [facility]00 Test Item Value Reference Range Interpretation Comments MAGNESIUM (test code = 1231384036) 2.4 mg/dL 1.7-2.4 Lab Interpretation (test code = Normal 36794-4) [facility] WITH [id number] 09:48:00 Test Item Value Reference Range Interpretation [...] RDW-SD (test code = 45.7 fL 38.5-51.6 25723-7) RDW-CV (test code = 14.3 % 12.1-15.4 788-0) PLT (test code = See_Comment HH [Automated 777-3) message] The system which generated this result transmit dain reference range : 150 - 328 10*3/ ?L. The reference range was not u sed to interpret th is result as normal/abnormal . MPV (test code = 9.1 fL 9.8-13 L 12268-2) NRBC/100 WBC (test See_Comment [Automat ed code = 1574182408) message] The system which generated this result transmit dain reference range : 0.0 - 10.0 /100 WBCs. The reference range was not used to interpret this result as normal/abnormal . NRBC x10^3 (test code <0.01 See_Comment [Auto mated = 3396548443) message] The system which generated this result transmit dain reference range : 10*3/?L. The reference range was not used to interpret this result as normal/abnormal . GRAN MAT (NEUT) % 78.9 % (test code = 770-8) IMM GRAN % (test code 1.70 % = 4689100704) LYMPH % (test code = 8.7 % 736-9) MONO % (test code = 9.1 % 5905-5) EOS % (test code = 0.9 % 713-8) BASO % (test code = 0.7 % 706-2) GRAN MAT x10^3(ANC) 11.96 10*3/uL 1.99-6.95 H (test code = 4329798921) IMM GRAN x10^3 (test 0.26 10*3/uL 0-0.06 H code = 3208631256) LYMPH x10^3 (test code 1.32 10*3/uL 1.09-3.23 = 731-0) MONO x10^3 (test code 1.38 10*3/uL 0.36-1.02 H = 742-7) EOS x10^3 (test code = 0.13 10*3/uL 0.06-0.53 711-2) BASO x10^3 (test code 0.11 10*3/uL 0.01-0.09 H = 704-7) Lab Interpretation Abnormal (test code = 78833-6) [facility] WITH [id number] 10:40:00 Test Item Value Reference Range Interpretation [...] RDW-SD (test code = 46.3 fL 38.5-51.6 38215-9) RDW-CV (test code = 14.5 % 12.1-15.4 788-0) PLT (test code = See_Comment HH [Automated 777-3) message] The sy stem which generated this result transmitted reference range : 150 - 328 10*3/ ?L. The reference r meredith was not used to interpret this result as normal/abnormal . MPV (test code = 9.1 fL 9.8-13 L 86138-7) NRBC/100 WBC (test See_Comment [Automat ed code = [id number]) message] The system which generated this result transmitted reference range : 0.0 - 10.0 /100 WBCs. The refer ence range was not u sed to interpret th is result as normal/abnormal . NRBC x10^3 (test code <0.01 See_Comment [Auto mated = [id number]) message] The s ystem which generated this result transmitted reference range : 10*3/?L. The reference range was not used to interpret this result as normal/abnormal . GRAN MAT (NEUT) % 74.7 % (test code = 770-8) IMM GRAN % (test code 2.00 % = [id number]) LYMPH % (test code = 10.0 % 736-9) MONO % (test code = 11.4 % 5905-5) EOS % (test code = 1.3 % 713-8) BASO % (test code = 0.6 % 706-2) GRAN MAT x10^3(ANC) 9.44 10*3/uL 1.99-6.95 H (test code = 7553837386) IMM GRAN x10^3 (test 0.25 10*3/uL 0-0.06 H code = [id number]) LYMPH x10^3 (test code 1.26 10*3/uL 1.09-3.23 = 731-0) MONO x10^3 (test code 1.44 10*3/uL 0.36-1.02 H = 742-7) EOS x10^3 (test code = 0.16 10*3/uL 0.06-0.53 711-2) BASO x10^3 (test code 0.07 10*3/uL 0.01-0.09 = 704-7) Lab Interpretation Abnormal (test code = 02330-1) [facility] METABOLIC PANEL (NA, K, CL, CO2, GLUCOSE, BUN, CREATININE, CA)2020-04-24 10:39:00 Test Item Value Reference Range Interpretation Comments NA (test code = 133 mmol/L 135-145 L [id number]) K (test code = 4.3 mmol/L 3.5-5 8142390979) CL (test code = 99 mmol/L 98-108 1048483381) CO2 TOTAL (test code = 29 mmol/L 23-31 2203969721) AGAP (test code = 2-16 1972768120) BUN (test code = 20 mg/dL 7-23 6862664163) GLUCOSE (test code = 109 mg/dL 70-110 2327743486) CREATININE (test code = 0.78 mg/dL 0.6-1.25 3806669411) CALCIUM (test code = 8.4 mg/dL 8.6-10.6 L 1984259917) eGFR Calculation mL/min/1.73m2 (Non-) (test code = 8649205036) eGFR Calculation mL/min/1.73m2 () (test code = 0436513828) GILBERTO (test code = GILBERTO) Association of [...] tests). Lab Interpretation Abnormal (test code = 88969-0) [facility]00 Test Item Value Reference Range Interpretation Comments MAGNESIUM (test code = 4766503788) 2.2 mg/dL 1.7-2.4 Lab Interpretation (test code = Normal 09328-4) [facility] P[facility] W [id number] 09:30:06 1. ?Overall, no significant change in [...] reviewed this study and agree with theabove report.[facility] THORAX W [id number] 03:46:28 Acute pulmonary emboli in the anterior [...] andmorphology. No significant pericardial thickening or effusion. Onjxvdfz-xp-obsye cardiomediastinal shift. Scattered subcentimeter mediastinal and bilateral hilar nodes, nonspecificbut likely reactive. No suspicious or aggressive osseous lesion. No lines/tubes in place in the chest. Abdominal drain in the left upperquadrant. Multiple loculated gas containing collections with peripheral enhancementin the upper abdomen, partially visualized. Please refer to the same-dayabdomen ?report for detailed findings in the abdomen. [facility], Radiant Results Inft User - 04/23/2020 10:47 [...] andmorphology. No significant pericardial thickening or effusion. Lkoqvpxz-ex-ucacx cardiomediastinal shift.Scattered subcentimeter mediastinal and bilateral hilar [...] reviewed this study and agree with theabove report.[facility] NOW RAPID TESTING)2020-04-23 17:45:00 Test Item Value Reference Range Interpretation Comments SARS-CoV-2 Rapid ID NOW Not Detected Not Detected (test code = 62893-9) GILBERTO (test code = GILBERTO) ID NOW COVID-19 Assay is an isothermal nucleic acid amplification test intended for the qualitative detection of nucleic acid from SARS-CoV-2 viral RNA in nasopharyngeal ([employer]) specimens. It is used under Emergency Use [...] indicated. Lab Interpretation Normal (test code = 81029-6) [facility]2020-08-31 17:40:00 Test Item Value Reference Range Interpretation Comments PALB (test code = 28160-3) 11.8 mg/dL 18-45 L Lab Interpretation (test code = Abnormal 01962-2) [facility] CHEST 1 [id number] 15:00:55 Stable appearance of left pleural effusion and left lung atelectasis. Preliminary Report Dictated by Resident: Bart De La Torre I reviewed this study and agree. Weston Ang MD., have reviewed this study and agree [...] reviewed this study and agree with theabove report.[facility] AllenPOTASSIUM [id number] 14:14:00 Test Item Value Reference Range Interpretation Comments K (test code = 7580067360) 4.8 mmol/L 3.5-5 Lab Interpretation (test code = Normal 27896-1) [facility] WITH [id number] 11:30:00 Test Item Value Reference Range Interpretation Comments WBC (test code = See_Comment H [Automated 9290-2) message] The sy stem which [...] RDW-SD (test code = 45.0 fL 38.5-51.6 69526-6) RDW-CV (test code = 14.5 % 12.1-15.4 788-0) PLT (test code = See_Comment HH [Automated 777-3) message] The sy stem which generated this result transmitted reference range : 150 - 328 10*3/ ?L. The reference r meredith was not used to interpret this result as normal/abnormal . MPV (test code = 9.4 fL 9.8-13 L 38731-7) IPF % (test code = 1.6 % 1.2-10.7 Platelet count 2906222755) measured by fluorescence method. NRBC/100 WBC (test See_Comment [Automat ed code = 0692677474) message] The system which generated this result transmitted reference range : 0.0 - 10.0 /100 WBCs. The refer ence range was not u sed to interpret th is result as normal/abnormal . NRBC x10^3 (test code <0.01 See_Comment [Auto mated = 9116808160) message] The s ystem which generated this result transmitted reference range : 10*3/?L. The reference range was not used to interpret this result as normal/abnormal . GRAN MAT (NEUT) % 73.4 % (test code = 770-8) IMM GRAN % (test code 1.80 % = 7361486828) LYMPH % (test code = 12.6 % 736-9) MONO % (test code = 10.8 % 5905-5) EOS % (test code = 1.0 % 713-8) BASO % (test code = 0.4 % 706-2) GRAN MAT x10^3(ANC) 9.57 10*3/uL 1.99-6.95 H (test code = 9767168342) IMM GRAN x10^3 (test 0.24 10*3/uL 0-0.06 H code = 5685143356) LYMPH x10^3 (test code 1.64 10*3/uL 1.09-3.23 = 731-0) MONO x10^3 (test code 1.41 10*3/uL 0.36-1.02 H = 742-7) EOS x10^3 (test code = 0.13 10*3/uL 0.06-0.53 711-2) BASO x10^3 (test code 0.05 10*3/uL 0.01-0.09 = 704-7) Lab Interpretation Abnormal (test code = 44544-0) [facility] METABOLIC PANEL (NA, K, CL, CO2, GLUCOSE, BUN, CREATININE, CA)2020-04-23 10:52:00 Test Item Value Reference Range Interpretation Comments NA (test code = 132 mmol/L 135-145 L 7898209973) K (test code = 5.7 mmol/L 3.5-5 H 8412002400) CL (test code = 97 mmol/L 98-108 L 8913481722) CO2 TOTAL (test code = 26 mmol/L 23-31 3183160334) AGAP (test code = 2-16 5727428885) BUN (test code = 34 mg/dL 7-23 H 4384750577) GLUCOSE (test code = 101 mg/dL 70-110 1765228653) CREATININE (test code = 0.85 mg/dL 0.6-1.25 1423226955) CALCIUM (test code = 9.0 mg/dL 8.6-10.6 8375471901) eGFR Calculation mL/min/1.73m2 (Non-) (test code = 5773272752) eGFR Calculation mL/min/1.73m2 () (test code = 4166107567) GILBERTO (test code = GILBERTO) Association of [...] tests). Lab Interpretation Abnormal (test code = 32715-0) [facility]2020-08-31 10:52:00 Test Item Value Reference Range Interpretation Comments MAGNESIUM (test code = 3948895820) 2.3 mg/dL 1.7-2.4 Lab Interpretation (test code = Normal 21291-8) [facility] 1 [id number] 13:26:55 FINDINGS/IMPRESSION: 1. ?A left pigtail chest [...] pleural effusion COMPARISON: Chest x-ray on 04/21/2020 [facility], Radiant Results Inft User - [...] reviewed this study and agree with theabove report.[facility] VW 2020-04-22 13:24:27FINDINGS/IMPRESSION: 1. ?A [...] in bed COMPARISON: Chest x-ray on 04/20/2020 [facility], Radiant Results Inft User - [...] osseous abnormality.Preliminary Report Dictated by Resident: Lincoln Palominoava, MD., have reviewed this study and agree with theabove report. [facility] (NA, K, CL, CO2, GLUCOSE, BUN, CREATININE, CA)2020-04-22 11:49:00 Test Item Value Reference Range Interpretation Comments NA (test code = 132 mmol/L 135-145 L 8570437093) K (test code = 4.7 mmol/L 3.5-5 1150662910) CL (test code = 97 mmol/L 98-108 L 2819528138) CO2 TOTAL (test code = 30 mmol/L 23-31 6087169473) AGAP (test code = 2-16 7568846654) BUN (test code = 28 mg/dL 7-23 H 7133560253) GLUCOSE (test code = 117 mg/dL 70-110 H 6462468314) CREATININE (test code = 0.88 mg/dL 0.6-1.25 9964098062) CALCIUM (test code = 8.8 mg/dL 8.6-10.6 6345443679) eGFR Calculation mL/min/1.73m2 (Non-) (test code = 8780233876) eGFR Calculation mL/min/1.73m2 () (test code = 6885249741) GILBERTO (test code = GILBERTO) Association of [...] tests). Lab Interpretation Abnormal (test code = 04973-6) [facility]2020-08-30 11:49:00 Test Item Value Reference Range Interpretation Comments MAGNESIUM (test code = 4518351584) 2.4 mg/dL 1.7-2.4 Lab Interpretation (test code = Normal 67535-6) [facility] WITH [id number] 11:23:00 Test Item Value Reference Range Interpretation [...] RDW-SD (test code = 44.9 fL 38.5-51.6 51486-0) RDW-CV (test code = 14.4 % 12.1-15.4 788-0) PLT (test code = See_Comment HH [Automated 777-3) message] The sy stem which generated this result transmitted reference range : 150 - 328 10*3/ ?L. The reference r meredith was not used to interpret this result as normal/abnormal . MPV (test code = 9.5 fL 9.8-13 L 10249-7) NRBC/100 WBC (test See_Comment [Automat ed code = 0147957492) message] The system which generated this result transmitted reference range : 0.0 - 10.0 /100 WBCs. The refer ence range was not u sed to interpret th is result as normal/abnormal . NRBC x10^3 (test code <0.01 See_Comment [Auto mated = 3018816527) message] The s ystem which generated this result transmitted reference range : 10*3/?L. The reference range was not used to interpret this result as normal/abnormal . GRAN MAT (NEUT) % 80.3 % (test code = 770-8) IMM GRAN % (test code 1.50 % = 1234735653) LYMPH % (test code = 7.2 % 736-9) MONO % (test code = 9.7 % 5905-5) EOS % (test code = 0.7 % 713-8) BASO % (test code = 0.6 % 706-2) GRAN MAT x10^3(ANC) 9.99 10*3/uL 1.99-6.95 H (test code = 9238544418) IMM GRAN x10^3 (test 0.19 10*3/uL 0-0.06 H code = 2243222863) LYMPH x10^3 (test code 0.90 10*3/uL 1.09-3.23 L = 731-0) MONO x10^3 (test code 1.21 10*3/uL 0.36-1.02 H = 742-7) EOS x10^3 (test code = 0.09 10*3/uL 0.06-0.53 711-2) BASO x10^3 (test code 0.07 10*3/uL 0.01-0.09 = 704-7) Lab Interpretation Abnormal (test code = 45216-1) [facility] WITH [id number] 14:15:00 Test Item Value Reference Range Interpretation [...] RDW-SD (test code = 44.4 fL 38.5-51.6 64503-3) RDW-CV (test code = 14.2 % 12.1-15.4 788-0) PLT (test code = See_Comment HH [Automated 777-3) message] The sy stem which generated this result transmitted reference range : 150 - 328 10*3/ ?L. The reference r meredith was not used to interpret this result as normal/abnormal . MPV (test code = 9.0 fL 9.8-13 L 13855-3) NRBC/100 WBC (test See_Comment [Automat ed code = 4143305568) message] The system which generated this result transmitted reference range : 0.0 - 10.0 /100 WBCs. The refer ence range was not u sed to interpret th is result as normal/abnormal . NRBC x10^3 (test code <0.01 See_Comment [Auto mated = 6870587610) message] The s ystem which generated this result transmitted reference range : 10*3/?L. The reference range was not used to interpret this result as normal/abnormal . GRAN MAT (NEUT) % 76.4 % (test code = 770-8) IMM GRAN % (test code 1.30 % = 6292209700) LYMPH % (test code = 10.9 % 736-9) MONO % (test code = 9.6 % 5905-5) EOS % (test code = 1.1 % 713-8) BASO % (test code = 0.7 % 706-2) GRAN MAT x10^3(ANC) 9.41 10*3/uL 1.99-6.95 H (test code = 6201056030) IMM GRAN x10^3 (test 0.16 10*3/uL 0-0.06 H code = 3935118051) LYMPH x10^3 (test code 1.34 10*3/uL 1.09-3.23 = 731-0) MONO x10^3 (test code 1.18 10*3/uL 0.36-1.02 H = 742-7) EOS x10^3 (test code = 0.13 10*3/uL 0.06-0.53 711-2) BASO x10^3 (test code 0.08 10*3/uL 0.01-0.09 = 704-7) Lab Interpretation Abnormal (test code = 96924-2) [facility] METABOLIC PANEL (NA, K, CL, CO2, GLUCOSE, BUN, CREATININE, CA)2020-04-21 13:47:00 Test Item Value Reference Range Interpretation Comments NA (test code = 130 mmol/L 135-145 L 9808805579) K (test code = 4.8 mmol/L 3.5-5 4911828274) CL (test code = 95 mmol/L 98-108 L 9502091993) CO2 TOTAL (test code = 29 mmol/L 23-31 7249731073) AGAP (test code = 2-16 5850589254) BUN (test code = 25 mg/dL 7-23 H 5021290666) GLUCOSE (test code = 98 mg/dL 70-110 4686460621) CREATININE (test code = 0.78 mg/dL 0.6-1.25 1326869754) CALCIUM (test code = 8.2 mg/dL 8.6-10.6 L 1044371637) eGFR Calculation mL/min/1.73m2 (Non-) (test code = 4563072625) eGFR Calculation mL/min/1.73m2 () (test code = 8515924145) GILBERTO (test code = GILBERTO) Association of [...] tests). Lab Interpretation Abnormal (test code = 36773-0) [facility]2020-[facility]29 13:47:00 Test Item Value Reference Range Interpretation Comments MAGNESIUM (test code = 5190648759) 2.1 mg/dL 1.7-2.4 Lab Interpretation (test code = Normal 10762-4) [facility]2020-08-28 21:30:00 Test Item Value Reference Range Interpretation Comments PALB (test code = 87779-6) 9.3 mg/dL 18-45 L Lab Interpretation (test code = Abnormal 92435-5) [facility] AllenBody Fluid [id number] 14:32:00 Test Item Value Reference Range Interpretation Comments BODY FLUID CULT No organisms isolated (test code = 611-4) Gram stain (test Occasional (Rare) code = 664-3) Polymorphonuclear leukocytes [facility] 1 [id number] 13:09:21EXAM: XR CHEST 1 VW HISTORY: ct [...] heart and great vessels are normal. ? [facility], Radiant Results Inft User - 04/20/2020 8:10 [...] The heart and great vessels are normal. [facility]OL[facility] (NA, K, CL, CO2, GLUCOSE, BUN, CREATININE, CA)2020-04-20 11:00:00 Test Item Value Reference Range Interpretation Comments NA (test code = 132 mmol/L 135-145 L 5958221268) K (test code = 5.2 mmol/L 3.5-5 H 7279997601) CL (test code = 100 mmol/L 98-108 4979162952) CO2 TOTAL (test code = 24 mmol/L 23-31 6659735554) AGAP (test code = 2-16 7674333622) BUN (test code = 19 mg/dL 7-23 3001478379) GLUCOSE (test code = 121 mg/dL 70-110 H 2501740674) CREATININE (test code = 0.77 mg/dL 0.6-1.25 6430584810) CALCIUM (test code = 8.2 mg/dL 8.6-10.6 L 6650445952) eGFR Calculation mL/min/1.73m2 (Non-) (test code = 2133868328) eGFR Calculation mL/min/1.73m2 () (test code = 0339498098) GILBERTO (test code = GILBERTO) Association of [...] tests). Lab Interpretation Abnormal (test code = 45297-0) [facility]2020-08-28 11:00:00 Test Item Value Reference Range Interpretation Comments MAGNESIUM (test code = 3198760456) 2.1 mg/dL 1.7-2.4 Lab Interpretation (test code = Normal 66550-9) [facility]2020-08-28 11:00:00 Test Item Value Reference Range Interpretation Comments PHOSPHORUS (test code = 3524340214) 3.9 mg/dL 2.5-5 Lab Interpretation (test code = Normal 05137-6) [facility] WITH [id number] 10:23:00 Test Item Value Reference Range Interpretation [...] RDW-SD (test code = 45.2 fL 38.5-51.6 42954-8) RDW-CV (test code = 14.2 % 12.1-15.4 788-0) PLT (test code = See_Comment HH [Automated 777-3) message] The system which generated this result transmit dain reference range : 150 - 328 10*3/ ?L. The reference range was not u sed to interpret th is result as normal/abnormal . MPV (test code = 9.3 fL 9.8-13 L 52716-6) NRBC/100 WBC (test See_Comment [Automat ed code = 7871844823) message] The system which generated this result transmit dain reference range : 0.0 - 10.0 /100 WBCs. The reference range was not used to interpret this result as normal/abnormal . NRBC x10^3 (test code <0.01 See_Comment [Auto mated = 9777839441) message] The system which generated this result transmit dain reference range : 10*3/?L. The reference range was not used to interpret this result as normal/abnormal . GRAN MAT (NEUT) % 79.8 % (test code = 770-8) IMM GRAN % (test code 1.50 % = 9991337259) LYMPH % (test code = 9.8 % 736-9) MONO % (test code = 7.5 % 5905-5) EOS % (test code = 0.6 % 713-8) BASO % (test code = 0.8 % 706-2) GRAN MAT x10^3(ANC) 10.64 10*3/uL 1.99-6.95 H (test code = 2648188876) IMM GRAN x10^3 (test 0.20 10*3/uL 0-0.06 H code = 8043478547) LYMPH x10^3 (test code 1.31 10*3/uL 1.09-3.23 = 731-0) MONO x10^3 (test code 1.00 10*3/uL 0.36-1.02 = 742-7) EOS x10^3 (test code = 0.08 10*3/uL 0.06-0.53 711-2) BASO x10^3 (test code 0.10 10*3/uL 0.01-0.09 H = 704-7) Lab Interpretation Abnormal (test code = 18363-0) [facility] 1 [id number] 12:25:53 No residual pleural effusion noted. Preliminary [...] reviewed this study and agree with theabove report.[facility] METABOLIC PANEL (NA, K, CL, CO2, GLUCOSE, BUN, CREATININE, CA)2020-04-19 11:09:00 Test Item Value Reference Range Interpretation Comments NA (test code = 133 mmol/L 135-145 L 5287423279) K (test code = 4.2 mmol/L 3.5-5 7767316595) CL (test code = 101 mmol/L 98-108 2701798211) CO2 TOTAL (test code = 26 mmol/L 23-31 9868445438) AGAP (test code = 2-16 3806349875) BUN (test code = 15 mg/dL 7-23 8611410371) GLUCOSE (test code = 113 mg/dL 70-110 H 5010990746) CREATININE (test code = 0.73 mg/dL 0.6-1.25 9948537235) CALCIUM (test code = 8.1 mg/dL 8.6-10.6 L 6409722568) eGFR Calculation mL/min/1.73m2 (Non-) (test code = 9953724946) eGFR Calculation mL/min/1.73m2 () (test code = 1304799555) GILBERTO (test code = GILBERTO) Association of [...] tests). Lab Interpretation Abnormal (test code = 00005-8) [facility]2020-08-27 11:09:00 Test Item Value Reference Range Interpretation Comments MAGNESIUM (test code = 9660826297) 2.1 mg/dL 1.7-2.4 Lab Interpretation (test code = Normal 32064-3) [facility]2020-08-27 11:09:00 Test Item Value Reference Range Interpretation Comments PHOSPHORUS (test code = 9657568376) 3.9 mg/dL 2.5-5 Lab Interpretation (test code = Normal 84200-2) [facility] WITH [id number] 10:59:00 Test Item Value Reference Range Interpretation [...] RDW-SD (test code = 46.0 fL 38.5-51.6 43523-1) RDW-CV (test code = 14.2 % 12.1-15.4 788-0) PLT (test code = See_Comment HH [Automated 777-3) message] The sy stem which generated this result transmitted reference range : 150 - 328 10*3/ ?L. The reference r meredith was not used to interpret this result as normal/abnormal . MPV (test code = 9.3 fL 9.8-13 L 36226-6) NRBC/100 WBC (test See_Comment [Automat ed code = 0580121341) message] The system which generated this result transmitted reference range : 0.0 - 10.0 /100 WBCs. The refer ence range was not u sed to interpret th is result as normal/abnormal . NRBC x10^3 (test code <0.01 See_Comment [Auto mated = 2008842397) message] The s ystem which generated this result transmitted reference range : 10*3/?L. The reference range was not used to interpret this result as normal/abnormal . GRAN MAT (NEUT) % 79.2 % (test code = 770-8) IMM GRAN % (test code 1.00 % = 5705418784) LYMPH % (test code = 11.4 % 736-9) MONO % (test code = 6.7 % 5905-5) EOS % (test code = 1.0 % 713-8) BASO % (test code = 0.7 % 706-2) GRAN MAT x10^3(ANC) 9.49 10*3/uL 1.99-6.95 H (test code = 3342825022) IMM GRAN x10^3 (test 0.12 10*3/uL 0-0.06 H code = 1071970864) LYMPH x10^3 (test code 1.36 10*3/uL 1.09-3.23 = 731-0) MONO x10^3 (test code 0.80 10*3/uL 0.36-1.02 = 742-7) EOS x10^3 (test code = 0.12 10*3/uL 0.06-0.53 711-2) BASO x10^3 (test code 0.08 10*3/uL 0.01-0.09 = 704-7) Lab Interpretation Abnormal (test code = 52109-8) [facility] [id number] 22:29:00 Test Item Value Reference Range Interpretation Comments Blood Culture-Aerobic No organisms No growth Previo us (test code = 98266-5) isolated prelim inary verified result was Culture In Progress on 04/13/2020 at 06 06 CDT Blood Culture positive. No growth AA Previous Culture-Anaerobic See Blood Culture preli minary (test code = 81901-6) Workup for verifi ed result additional was Culture In information. Progress on 04/12/2020 at 18 01 CDT Lab Interpretation Abnormal (test code = 87005-2) [facility] WITH TUBE WITH IMAGING 2020-04-18 15:38:00Successful image guided 10 Argentine pigtail chest tube insertioninto the left pleural [...] was obtained. Prior to beginning the procedure, [place] Protocolwas performed to confirm the patient's identity [...] pleural space. The tractwas dilated to 10 Argentine, and a 10 Argentine pigtail chest tube was insertedand coiled within [...] was obtained. Prior to beginning the procedure, [place] Protocolwas performed to confirm the patient's identity [...] pleural space. The tractwas dilated to 10 Argentine, and a 10 Argentine pigtail chest tube was insertedand coiled within [...] of pleural fluid. IMPRESSIONSuccessful image guided 10 Argentine pigtail chest tube insertioninto the left pleural space. PLAN: Post procedure chest radiograph will be obtained.[facility] 1 [id number] 13:37:38 Hazy left midlung opacity, may represent [...] reviewed this study and agree with the abovereport.[facility] (NA, K, CL, CO2, GLUCOSE, BUN, CREATININE, CA)2020-04-18 11:18:00 Test Item Value Reference Range Interpretation Comments NA (test code = 134 mmol/L 135-145 L 0960414508) K (test code = 4.4 mmol/L 3.5-5 6161510282) CL (test code = 102 mmol/L 98-108 6343919127) CO2 TOTAL (test code = 26 mmol/L 23-31 4433150517) AGAP (test code = 2-16 4341345022) BUN (test code = 12 mg/dL 7-23 8363623773) GLUCOSE (test code = 106 mg/dL 70-110 8166284682) CREATININE (test code = 0.74 mg/dL 0.6-1.25 6996932330) CALCIUM (test code = 7.5 mg/dL 8.6-10.6 L 4494310361) eGFR Calculation mL/min/1.73m2 (Non-) (test code = 7688060373) eGFR Calculation mL/min/1.73m2 () (test code = 6376719291) GILBERTO (test code = GILBERTO) Association of [...] tests). Lab Interpretation Abnormal (test code = 20939-3) [facility]2020-08-26 11:18:00 Test Item Value Reference Range Interpretation Comments MAGNESIUM (test code = 8365461811) 2.0 mg/dL 1.7-2.4 Lab Interpretation (test code = Normal 85968-9) [facility]2020-08-26 11:18:00 Test Item Value Reference Range Interpretation Comments PHOSPHORUS (test code = 7988524087) 3.4 mg/dL 2.5-5 Lab Interpretation (test code = Normal 76424-1) [facility] WITH [id number] 10:46:00 Test Item Value Reference Range Interpretation [...] RDW-SD (test code = 46.5 fL 38.5-51.6 58013-0) RDW-CV (test code = 14.5 % 12.1-15.4 788-0) PLT (test code = See_Comment HH [Automated 777-3) message] The system which generated this result transmit dain reference range : 150 - 328 10*3/ ?L. The reference range was not u sed to interpret th is result as normal/abnormal . MPV (test code = 9.6 fL 9.8-13 L 38716-1) NRBC/100 WBC (test See_Comment [Automat ed code = 1585741772) message] The system which generated this result transmit dain reference range : 0.0 - 10.0 /100 WBCs. The reference range was not used to interpret this result as normal/abnormal . NRBC x10^3 (test code <0.01 See_Comment [Auto mated = 9304110993) message] The system which generated this result transmit dain reference range : 10*3/?L. The reference range was not used to interpret this result as normal/abnormal . GRAN MAT (NEUT) % 82.1 % (test code = 770-8) IMM GRAN % (test code 0.90 % = 1186382184) LYMPH % (test code = 9.2 % 736-9) MONO % (test code = 6.6 % 5905-5) EOS % (test code = 0.7 % 713-8) BASO % (test code = 0.5 % 706-2) GRAN MAT x10^3(ANC) 10.02 10*3/uL 1.99-6.95 H (test code = 2892003567) IMM GRAN x10^3 (test 0.11 10*3/uL 0-0.06 H code = 2773258292) LYMPH x10^3 (test code 1.12 10*3/uL 1.09-3.23 = 731-0) MONO x10^3 (test code 0.80 10*3/uL 0.36-1.02 = 742-7) EOS x10^3 (test code = 0.08 10*3/uL 0.06-0.53 711-2) BASO x10^3 (test code 0.06 10*3/uL 0.01-0.09 = 704-7) Lab Interpretation Abnormal (test code = 53855-6) [facility] [id number] 20:01:00 Test Item Value Reference Range Interpretation Comments Blood Culture-Aerobic No organisms No growth Previo us (test code = 77143-1) isolated prelim inary verified result was Culture [...] Culture-Anaerobic isolated preliminar y (test code = 54362-5) verifi ed result was Culture In Progress [...] CDT Lab Interpretation Normal (test code = 10080-5) [facility] 1 [id number] 19:38:57 FINDINGS/IMPRESSION: There are 2 left-sided chest [...] effusion COMPARISON: Chest x-ray 04/17/2020, 04/16/2020, 04/09/2020 [facility], Radiant Results Inft User - 04/17/2020 2:40 [...] 2:35 PM on 04/17/[address] Mathieu Chapa.[facility] Allen[facility]to Pleural [id number] 17:29:00 Test Item Value Reference Range Interpretation Comments Case Report (test code Non-Gynecologic = 0451503641) Cytology ?Case: [id number] ?Authorizing Provider: ?Vance Stafford MD ?Collected: ? 04/16/2020 1650 ?Ordering Location: ? ? Surgery ([facility]) ? Received: ?04/16/2020 1809 ?Pathologist: ? Alice Aj MD ? Specimen: ? ?PLEURAL, LEFT, EFFUSION ? Final Diagnosis (test b1qlcIJzHLXyx1yrBTQabI code = [id number]) FuZzEwMzNcZnRuYmpcdWMx TCfojfRxYRnli5OuC4WiYf AwMFxhbnNpXGRlZmxhbmcx ZBOkNDE3xvLgEGSwRPqeLV UpPLtyLv4qzYPccVpeGwMa EQLcr3adwcAAvhsqbBm0e7 hmDIHhRgG4bLJuCNrvG1sj xhFycJKbCRTzESg7tT21KX DvrX3kuYHcWAapsyUlXiV0 IBodQLVoGmS1BTVjrCMjBP InZ6xcVFFoWEwiGZMxEHti hKKfSIB2aYqwa8H9bLFjzD UbfNctHuAvYlGdIAHRt6Mr LZv0eQrgO5RnRCNxBbI8uJ QgUGFyYWdyYXBoIEZvbnQ7 bV21LYhykoN5rHSgb7Vpz9 9yb837yG1pkPFkYSH8EBQk UMQfsXEiAHCaLFX5FIWuxF RcL9qpNSkqSS9uyrmvMFG7 MFxtYXJndDcyMFxtYXJnYj BbeKBrNTRxpAtxMFsdu564 ZPF9UpAgCU0sB7Jev1M9dW 9maXRcZGVmdGFiNzIwXGZv ym1owSIpRSxlu8DwGNM6ds Z6pONkuOXfBLJeBS83Ktow r0JsKaikWBA2CSXilpMne2 Cdg6biEiWqnlImR6bkO5Ao ZHJoZWFkXHBnYnJkcmZvb3 Qkt2IkaEFzzAe7p6vvOIKl CAXwmArhb4iiLBH2HAGpB6 Y7nZVtl7vrAUayUDQfoHC3 eaKkSZYqyUNqG8ShbL7jZS zzTR4lrmm3e7cnHuIcNX2t knrdp4lhLXbfWLMpTUL6Rl FtGOWbb6JvfrlhLmZed5Iv uZReDLvwB65tl181IFLblg RqK1lzkPXbwsflxCNtatqr PUltadL0XHBgmeIioWmyiW 6dYpItYwEyEIqhIV4qXTLl S2bvcYVcBSVcFTOdB1naMg NcnD6yfWfoCBdkGzOkBxVl MFxiIEEuICBQTEVVUkEsIE dNWvE9JXVDC7UQW9NBFZSY SVMgRkxVSURccGFyICAgIC RhID6vPO5CWJWNPQTINE4A PLANSsBRM10HVsYIMBsOFD 7EUSZHT6ARKMcGJ1kjAAJs ICAgICAgLSBORUdBVElWRS NXE3DqVSNEHBbGFE3REQUZ TExTXHBsYWluXGYxXGZzMj BcbGFuZzEwMzNcaGljaFxm CVuoDjFuARLoDMgcV4xvLu JqOoTvFAWpOQJGYGJTE86L BO2SZWgpUCV4v9gtdPNiHN EguQOtKsBxXWGzEDGga1jq ZGVmbGFuZzEwMzNcZnRuYm hwpIYxYRXlScHbl5wgb147 lACmr3fnBOHdKhV6lJClVR MfmWlvfbe4jXlyPfZrVMXf c9dxsdDkMqMmXXCqSVTwGR MrjSUhJ868JQUuNCsvz9km x4LrRVNhcBElp2B9YOIVED yuKmTyV351l9zpn2wjkaAa fDT7SSFsBPP1KEndkpIhld O6OJjzhJLqBpW2JWwbllQr XEgwmgGdebCoUtr2TGDeX9 28RRS8lHiof1fcKFU7JHAf AIJcCvtwXw3imNJwQ509VX QyFNAQLUCkmGp3DULfunMp jkClgTVVt559O991v2jbMG LyjjZbhUaNlhgco2oqJ429 XHBhcGVydzEyMjQwXHBhcG QaaBO8RIIyTF3kxfzcKTxb SPbyZOEehjP2WJLbjTKmF7 ZlOOJdPI8tffvwTSU4CWvo SCDiTQA5JaFzTOLzc3Ship h8CyIieq7lyi14VAZ8y6Kj eUgyWGA2ZWU4QdAtXw4bcX HfXGEiYE6xTtEykNXfQAAf ie47wMbiAGahcsTnlR2cMo GqUSBevKZpMFCeBQ6tlENf TAVkhP6gimztYKOfCuKnuo egAERibAldowTsRj3hbNwm GIQ2IApxF8yleW6gWwH3UK knW9elhH0eLXc3MTyxzUD7 HYKngP7sJY9jokjtt9okYI vjZEteCTEuzqI8stQ3PAUe aYLiE9FohM8zSFXtLR1qyi fce9krUNI3HAemXHKqZPU6 JeGjSAUsh0Mjghs5MaLmk8 HgePVwYFhjF22ko269CCHt ntIxF9bopXAtydbvbYNrhx jtOHqqbtI4SAUrHIZcWSgx XGYxXGZzMjBcbGFuZzEwMz NcaGljaFxmMVxkYmNoXGYx KMoaF7vtSxDyO0OkQFGaNs AlcLTfEPltjKR5ESJxACUa c07iiLc8CUUcbdpdg8EnLH RqyLWnxCDpxI3htvKeq0cv UFLmCCLjIRHmF3WeKEE2hM ZpDTWseKTihLT1LN9onpLb OJ4xCZJtXfibbfKkiPStxm IzCLSpUZlsf5mxEF5qRLCn uUisyC9ouSM5JAIii7lifI YahFWkd7pmv7UrtwKtKAnr WAPcXLjdIOMbMZGyIA6jVK DrpDZntjGdn5H5ZgipkVPy dtirOyrtktQ2MGtetlajZI YxKXyeE6qfTtRjBINzxVdl Hqpra0WbQVFwDKDhAkahaN FyfX0= Final Diagnosis Comment w2wijFOiDHGynTQeSzJiMH (test code = CxRKAbi1vrQUWquNHmKxEd 4125706417) MzNcZnRuYmpcdWMxXGRlZm Wfd7brr500oGEuu2yhBHOy HxC7gTQbNVYouYWqC147k5 tnd2jsrjDlhAC6NQBpQUH2 UOrpfnNbysW4FFmmcPBuUt H7WGawcyOvLLvnacTfuwIj Uig1WEZdM811KXY7kKgao4 ibVEH6EAZgSLBgOyLoBf8k rBOlO961QCFlWTMBRPVxkJ a3AJUrvwBqnmPqwWRGo323 O156a1ubGGPctfBktEfVcg wbj8poB063UPVxpSNznpQf WyXbUWIhgJRhuYA3NYJwHN 9srzkdNJI3RAxmBPMmkmDx AZAfpZBvS4A6OvOxrPNfA2 DrKLxxKIAdsjg1JvKdLr6x lASlaBS7KYlvk8tve8eblR IdRnu9IHVqGqXuNfiwUNxh b0Kxa5jdWDFqup1oIMY5uS BvsDqqe7Y5lRNbBHMplPDw pmUxEMNhPoD5DOarPS2htl 92UTMjRDY9cf5csMGwkTkn exWgqNPrZIiiW3RsPEPxe0 94YVGsJ9VaJSWsx6O0tiVj RiVvBQQqxLZ5esE4MSGiKI d8yJQvibQ7gwSkwXViS9pv zY0xXDvwVA9nmqxhe6woRW E7DUpoNARyiJC1veeaKDjg JOSvRwR6zfZnoBJmHZUelH zxGGepk623UZH6RyMlQBUm u7UlX6WznHnjR72cjBgmM8 2jYTJenJufwT4wxJokjR8e ZjBcZnMyNFxxbFxwbGFpbl xmMFxmczIwXGxhbmcxMDMz LFboO8hnScVgFUOypQxrQD lgb1RpYFJkQCDyCaBwT19g HKNng7fnm5MfzHk4LOXliX 2xdDRtxGH6wU5eKFpfhZaf aNBaNH9nnJ3awfRwkUPkOJ T7td1ooPzdphqnRrN1PFo6 wZQut2X4wUGbETPuXQHbfJ HsiX5vQNKih84oxIR9ME99 BRfrvOrcKR9rtHNvHA3aMc 0dnMRgqVzrZF50JXLpjYsl TLfqKL42pGZmPGBuSOofKQ J9 Clinical Information Clinical Hx: ?Total (test code = colectomy complicated 9353252307) . Requested per consulting surgery team. Gross Description (test n4rnuHUmCPZylACqIuXoYL code = 8960070319) BdYXQin1odMYRdqXNoSqPd MzNcZnRuYmpcdWMxXGRlZm Pot0wsr020rYPeg6osJRXz JbV8qGQwOBQmsEUtI892i5 iqx7jaosGqvSK1JCTaXZY3 XIhqsyMacaQ7RKiobHBrRe A0YApkznBlJAvthkVdwsQb Ije3FOBeL596QCX7kKgjw4 neOWF6EESoMKEtBsKwXh2p sMNnG310YZOjHNITXYEgeS h1ZEEgwoDtzeErgDOLn247 W795t9knFVMnsqPyuWaIdp tkk0koQ479VKDapRXcvmPe EtMbBMDjzMHfdHY4MRIbFI 7ptfzyQBA3CFiuEBDdjfSi NJZuuZSyO6D6TyIddORdH4 KzPZgaSDNyrwc0PvYlVb4l qDByuQW5UEouy5muz9yutQ VcScg9SYQuFaHzNuvfULhz f4Xwf8nzCOYmct4oNTP9rU QxoCqbv7A4nJDiELMmoFUb plHjVMDkLkN3MPldRV2cdh 18PBLrGLR4gv6ilZOdtFti foQzzXYqAXsrQ1YbJEJhe3 27QRFqP1QfAMShm1I6vqLf KgLgJQXljEB2ynI0QRUaKU w8eXWmtyC1lyPcdVVgW5bf aI6iUUysNV1amiysw9ovDE P4YFgvRALsfXT0vcvyOWdo NBOmJcJ7bnKnmIEiMLUavJ jtOUado109BAL0RjWbFKUk h4WnM7AbgRuvR54zsDdjX5 1yXAAduUxufR8jzIrscZ2j ZjBcZnMyNFxxbFxwbGFpbl xmMFxmczIwXGxhbmcxMDMz NKhsI8mmQgWzKEDdmCsfXP zvq7EtTEJcUZLoKpTnUDYq SUKWULSTLiMiDHsHSrN0XY JAA1ROK5WMTWECARVbGtkN TTLvgMRjFPGaI7AbejRmHC JcDBFlNUkvDEKsLWTgO8Dr n2IuyWPxrL39OMPjwQcrEX xwYXIgUHJlcGFyZWQgMiBz qMviGFAaMLSvCPLuUJ3jQ1 8wCA39SWI5uG3xdGihSBQp lwIkENMAt47zfx84e6u1PC H3mD2vmBkoLEIrAVWjtcP9 dN1tDHsoXNS8 Embedded Images (test code = 5903086690) [facility] [id number] 13:05:21EXAM: XR CHEST 1 VW HISTORY: post [...] is little different than noted yesterday. ? [facility], Radiant Results Inft User - 04/17/2020 8:06 [...] the chest is little different than noted yesterday.[facility] WITH [id number] 11:18:00 Test Item Value Reference Range Interpretation [...] RDW-SD (test code = 47.8 fL 38.5-51.6 34007-5) RDW-CV (test code = 14.7 % 12.1-15.4 788-0) PLT (test code = See_Comment HH [Automated 777-3) message] The system which generated this result transmit dain reference range : 150 - 328 10*3/ ?L. The reference range was not u sed to interpret th is result as normal/abnormal . MPV (test code = 9.9 fL 9.8-13 37198-1) NRBC/100 WBC (test See_Comment [Automat ed code = 9499043357) message] The system which generated this result transmit dain reference range : 0.0 - 10.0 /100 WBCs. The reference range was not used to interpret this result as normal/abnormal . NRBC x10^3 (test code <0.01 See_Comment [Auto mated = 9250188380) message] The system which generated this result transmit dain reference range : 10*3/?L. The reference range was not used to interpret this result as normal/abnormal . GRAN MAT (NEUT) % 81.7 % (test code = 770-8) IMM GRAN % (test code 1.10 % = 5355902403) LYMPH % (test code = 9.1 % 736-9) MONO % (test code = 7.3 % 5905-5) EOS % (test code = 0.5 % 713-8) BASO % (test code = 0.3 % 706-2) GRAN MAT x10^3(ANC) 10.91 10*3/uL 1.99-6.95 H (test code = 4723743457) IMM GRAN x10^3 (test 0.15 10*3/uL 0-0.06 H code = 0985866032) LYMPH x10^3 (test code 1.21 10*3/uL 1.09-3.23 = 731-0) MONO x10^3 (test code 0.97 10*3/uL 0.36-1.02 = 742-7) EOS x10^3 (test code = 0.07 10*3/uL 0.06-0.53 711-2) BASO x10^3 (test code 0.04 10*3/uL 0.01-0.09 = 704-7) Lab Interpretation Abnormal (test code = 91462-0) [facility] METABOLIC PANEL (NA, K, CL, CO2, GLUCOSE, BUN, CREATININE, CA)2020-04-17 10:49:00 Test Item Value Reference Range Interpretation Comments NA (test code = 134 mmol/L 135-145 L 6485025900) K (test code = 4.2 mmol/L 3.5-5 6698580649) CL (test code = 103 mmol/L 98-108 9340310380) CO2 TOTAL (test code = 26 mmol/L 23-31 7647218667) AGAP (test code = 2-16 0804482474) BUN (test code = 12 mg/dL 7-23 5045598938) GLUCOSE (test code = 107 mg/dL 70-110 5597341273) CREATININE (test code = 0.74 mg/dL 0.6-1.25 7170405104) CALCIUM (test code = 7.8 mg/dL 8.6-10.6 L 8011715153) eGFR Calculation mL/min/1.73m2 (Non-) (test code = 8772424383) eGFR Calculation mL/min/1.73m2 () (test code = 5910967966) GILBERTO (test code = GILBERTO) Association of [...] tests). Lab Interpretation Abnormal (test code = 91341-4) [facility]2020-[facility]-25 10:49:00 Test Item Value Reference Range Interpretation Comments MAGNESIUM (test code = 4590774163) 2.3 mg/dL 1.7-2.4 Lab Interpretation (test code = Normal 11779-1) [facility]2020-08-25 10:49:00 Test Item Value Reference Range Interpretation Comments PHOSPHORUS (test code = 8298937038) 3.8 mg/dL 2.5-5 Lab Interpretation (test code = Normal 94001-7) [facility] TOTAL BODY [id number] 00:37:00 Test Item Value Reference Range Interpretation Comments LDH BF (test code = 3707 U/L 6986419321) UNSPUN BODY FLUID Light Yellow COLOR (test code = 2035022841) UNSPUN BODY FLUID Clear CLARITY (test code = 1682978656) SPUN BODY FLUID Light Yellow COLOR (test code = 4162042779) SPUN BODY FLUID Clear CLARITY (test code = 5482738044) Sediment (test code The sediment volume is 0.1 = 2918417431) mLs of the total fluid volume of 3mLs and its color is white. GILBERTO (test code = Test developed and GILBERTO) characteristics determined by [facility] Laboratory Services. [facility] CHEST 1 [id number] 00:22:53 1. ?Left lower lung zone 2 [...] fortechnique. Bones: No acute osseous abnormalityis seen. [facility], Radiant Results Inft User - [...] compared to 817 with a possible small pneumothorax.[facility] Allen[facility]ODY FLUID DIRECT [id number] 00:10:00 Test Item Value Reference Range Interpretation Comments BF COLOR Light Yellow (test code = 8694507570) BF WBC Count See_Comment [Automated (test code = message] The sy stem 3056772704) which generated this result transmitted reference range : /?L. The refere nce range was not u sed to interpret th is result as normal/abnormal . BF RBC Count <3000 See_Comment [Automated (test code = message] The sy stem 1243786756) which generated this result transmitted reference range : /?L. The refere nce range was not u sed to interpret th is result as normal/abnormal . GILBERTO (test The reference range code = GILBERTO) and other method performance specifications have not been established for this body fluid. ?The test results must be integrated into the clinical context for interpretation. [facility] FLUID MANUAL [id number] 00:10:00 Test Item Value Reference Range Interpretation Comments BF SEGS (test code = 3085472694) 78 % MACROPHAGE (test code = 8659972255) 22 % #CELS CNTD (test code = 0917339619) [facility] AllenAmylase Body [id number] 00:03:00 Test Item Value Reference Range Interpretation Comments AMYLASE BF (test 313 U/L code = 7434566429) UNSPUN BODY FLUID Yellow COLOR (test code = 6742362915) UNSPUN BODY FLUID Clear CLARITY (test code = 4254869442) SPUN BODY FLUID Yellow COLOR (test code = 5917918183) SPUN BODY FLUID Clear CLARITY (test code = 9916538165) Sediment (test code The sediment volume is = 6761221247) <0.1 mLs of the total fluid volume of 1mL and its color is red. GILBERTO (test code = Test developed and GILBERTO) characteristics determined by [facility] Laboratory Services. [facility] AllenGlucose Body [id number] 00:03:00 Test Item Value Reference Range Interpretation Comments GLUCOSE BF (test 57 mg/dL code = 3753886126) UNSPUN BODY FLUID Yellow COLOR (test code = 3145586134) UNSPUN BODY FLUID Clear CLARITY (test code = 7514329878) SPUN BODY FLUID Yellow COLOR (test code = 4266349597) SPUN BODY FLUID Clear CLARITY (test code = 8169420312) Sediment (test code The sediment volume is = 0689874178) <0.1 mLs of the total fluid volume of 1mL and its color is red. GILBERTO (test code = Test developed and GILBERTO) characteristics determined by [facility] Laboratory Services. [facility] Allen[facility] Protein Body [id number] 00:03:00 Test Item Value Reference Range Interpretation Comments T.PROT BF (test 3000.0 mg/dL code = 0275594976) UNSPUN BODY FLUID Yellow COLOR (test code = 4185947748) UNSPUN BODY FLUID Clear CLARITY (test code = 2862167180) SPUN BODY FLUID Yellow COLOR (test code = 7309176397) SPUN BODY FLUID Clear CLARITY (test code = 1057105671) Sediment (test code The sediment volume is = 8876060195) <0.1 mLs of the total fluid volume of 1mL and its color is red. GILBERTO (test code = Test developed and GILBERTO) characteristics determined by [facility] Services. [facility], Body [id number] 23:56:00 Test Item Value Reference Range Interpretation Comments PH BF (test code = 5076472773) UNSPUN BODY FLUID COLOR Light Yellow (test code = 1189032932) UNSPUN BODY FLUID Clear CLARITY (test code = 2423532838) SPUN BODY FLUID COLOR Light Yellow (test code = 0445598680) SPUN BODY FLUID CLARITY Clear (test code = 1849290277) Sediment (test code = The sediment volume is 8871115702) 0.1 mLs of the total fluid volume of 5.5mLs and its color is white/red. [facility] DRAINAGE BY CATHETER PERITONEAL OR [id number] 21:10:26 Successful placement of a 12 Argentine drain in the left upper quadrantcollection. Successful placement of a 14 Argentine drain in the midline air fluidcollection. Successful placement of a 10 Argentine drain in the right lower quadrant fluidcollection. [...] those actually performingthe procedure. Please refer to [facility] regarding sedation time. RADIATION DOSE: 1957 mGy - cm. TECHNIQUE: The risks, benefits and alternatives were discussed and informed consentwas obtained. Prior to beginning the procedure, [place] Protocol was usedto confirm the patient's identity and planned procedure. Maximum sterilebarriers including cap, mask, hand hygiene, sterile gloves, sterile gown,large sterile drape and cutaneous antisepsis were used. The anteriorabdominal wall was sterilely prepped, and draped. The skinoverlying the left upper, right upper, andright lower quadrants wasinfiltrated with lidocaine 2%. The targeted collection in the left upper quadrant was then accessed with n03-gxnff quadrant needle using CT guidance. A 0.035 Amplatz wire wasadvanced through the coaxial needle. The tract was serially dilated to 12French. A pigtail 12 Argentine catheter was placed in the left upper quadrantcollection. Approximately, 210 cc of purulent fluid was removed. The air-fluid collection in the mid abdomen was accessed through the rightupper quadrant. An 18 Argentine pigtail catheter was placed in this collectionunder CT guidance in a similar fashion to thedrain and left upperquadrant. Approximately, 1250 cc of purulent material were removed. The fluid collection in the right lower quadrant was also accessed in asimilar fashion. A 10 Argentine pigtail catheter was placed in this collectionunder [...] aspirated at the time of the procedure. [facility], Radiant Results Inft User - 04/16/2020 4:11 PM CDTEXAMINATION: PERCUTANEOUS ASPIRATIONHISTORY: 50-year-old male with postoperative abdominal fluid collections SEDATION: Moderate sedation was administered under the supervision of atrained nurse specialist who was independent from those actually performingthe procedure. Please refer to [facility] regarding sedation time.RADIATION DOSE: 1957 mGy - cm.TECHNIQUE: The risks, benefits and alternatives were d iscussed and informed consentwas obtained. Prior to beginning the procedure, [place] Protocol was usedto confirm the patient's identity [...] serially dilated to 12French. A pigtail 12 Argentine catheter was placed in the left upper quadrantcollection. Approximately, 210 cc of purulent fluid was removed.The air-fluid collection in the mid abdomen was accessed through the rightupper quadrant. An 18 Argentine pigtail catheter was placed in this collectionunder CT guidance in a similar fa shion to the drain and left upperquadrant. Approximately, 1250 cc of purulent material were removed.The fluid collection in the right lower quadrant was also accessed in asimilar fashion. A 10 Argentine pigtail catheter was placed in this collectionunder [...] left upper quadrantcollection.Successful placement of a 14 Argentine drain in the midline air fluidcollection.Successful placement of a 10 Argentine drain in the right lower quadrant fluidcollection.Preliminary Report Dictated by Resident: Hayden Murphy the attending radiologist I was present in the room for the entirety ofthe procedure.I, Neris Grier MD., have reviewed this study and agree with the abovereport.[facility] FLUID C[facility](AEROBIC/ANAEROBIC)2020-04-16 19:45:00 Test Item Value Reference Range Interpretation Comments BODY FLUID CULT 2+ Bacteroides fragillis (test code = 611-4) Gram stain (test Occasional (Rare) code = 664-3) Mononuclear cells [facility] AllenPROTHROMBIN TIME / [id number] 16:38:00 Test Item Value Reference Range Interpretation Comments PROTIME PATIENT (test See_Comment H [Auto mated message] code = 5964-2) The system [employer] generated this result transmitted ref erence range: 10.1 - 1 2.6 Seconds. The reference range was not used to int erpret this result as normal/abnormal . INR (test code = 6301-6) Nor mal INR <1.1; Warfarin Therap eutic range 2.0 to 3. 0 or 2.5 to 3.5, dep ending upon the indica tions. Lab Interpretation (test Abnormal code = 30796-4) [facility]CT ABDOMEN PELVIS W [id number] 13:40:08Impression: 1. ?Interval placement of 4 percutaneous [...] degenerative changes and no suspicious focal lesions. [facility], Radiant Results Inft User - 04/16/2020 8:41 [...] contrast seen up to the ostomy.[facility] (NA, K, CL, CO2, GLUCOSE, BUN, CREATININE, CA)2020-04-16 10:51:00 Test Item Value Reference Range Interpretation Comments NA (test code = 132 mmol/L 135-145 L 9320591877) K (test code = 4.1 mmol/L 3.5-5 8112223626) CL (test code = 103 mmol/L 98-108 2557230551) CO2 TOTAL (test code = 24 mmol/L 23-31 9411166840) AGAP (test code = 2-16 8508734919) BUN (test code = 13 mg/dL 7-23 2744653885) GLUCOSE (test code = 132 mg/dL 70-110 H 1389442206) CREATININE (test code = 0.77 mg/dL 0.6-1.25 6179333977) CALCIUM (test code = 7.4 mg/dL 8.6-10.6 L 5274967664) eGFR Calculation mL/min/1.73m2 (Non-) (test code = 4086387645) eGFR Calculation mL/min/1.73m2 () (test code = 7199423427) GILBERTO (test code = GILBERTO) Association of [...] tests). Lab Interpretation Abnormal (test code = 64453-1) [facility]2020-08-24 10:51:00 Test Item Value Reference Range Interpretation Comments MAGNESIUM (test code = 4032466729) 2.2 mg/dL 1.7-2.4 Lab Interpretation (test code = Normal 35950-7) [facility]OSPHORUS2020-08-24 10:51:00 Test Item Value Reference Range Interpretation Comments PHOSPHORUS (test code = 4573430345) 3.1 mg/dL 2.5-5 Lab Interpretation (test code = Normal 42152-0) [facility] AllenCB WITH [id number] 10:37:00 Test Item Value Reference Range Interpretation Comments WBC (test code = See_Comment H [Automated 7890-2) message] The system which generated this result [...] RDW-SD (test code = 47.4 fL 38.5-51.6 08943-2) RDW-CV (test code = 14.7 % 12.1-15.4 788-0) PLT (test code = See_Comment H [Automated 777-3) message] The system which generated this result transmit dain reference range : 150 - 328 10*3/ ?L. The reference range was not u sed to interpret th is result as normal/abnormal . MPV (test code = 10.1 fL 9.8-13 96697-1) NRBC/100 WBC (test See_Comment [Automat ed code = 7432595809) message] The system which generated this result transmit dain reference range : 0.0 - 10.0 /100 WBCs. The reference range was not used to interpret this result as normal/abnormal . NRBC x10^3 (test code <0.01 See_Comment [Auto mated = 2598622271) message] The system which generated this result transmit dain reference range : 10*3/?L. The reference range was not used to interpret this result as normal/abnormal . GRAN MAT (NEUT) % 83.0 % (test code = 770-8) IMM GRAN % (test code 1.50 % = 5579721969) LYMPH % (test code = 7.6 % 736-9) MONO % (test code = 7.3 % 5905-5) EOS % (test code = 0.3 % 713-8) BASO % (test code = 0.3 % 706-2) GRAN MAT x10^3(ANC) 11.53 10*3/uL 1.99-6.95 H (test code = 3697631733) IMM GRAN x10^3 (test 0.21 10*3/uL 0-0.06 H code = 0526388560) LYMPH x10^3 (test code 1.05 10*3/uL 1.09-3.23 L = 731-0) MONO x10^3 (test code 1.01 10*3/uL 0.36-1.02 = 742-7) EOS x10^3 (test code = 0.04 10*3/uL 0.06-0.53 L 711-2) BASO x10^3 (test code 0.04 10*3/uL 0.01-0.09 = 704-7) Lab Interpretation Abnormal (test code = 88130-6) [facility] METABOLIC PANEL (NA, K, CL, CO2, GLUCOSE, BUN, CREATININE, CA)2020-04-15 11:01:00 Test Item Value Reference Range Interpretation Comments NA (test code = 132 mmol/L 135-145 L 7412690105) K (test code = 4.7 mmol/L 3.5-5 5004216411) CL (test code = 103 mmol/L 98-108 1408274641) CO2 TOTAL (test code = 22 mmol/L 23-31 L 1222179183) AGAP (test code = 2-16 3060874286) BUN (test code = 14 mg/dL 7-23 5423269050) GLUCOSE (test code = 114 mg/dL 70-110 H 4116540790) CREATININE (test code = 0.74 mg/dL 0.6-1.25 2226541939) CALCIUM (test code = 7.9 mg/dL 8.6-10.6 L 0802509838) eGFR Calculation mL/min/1.73m2 (Non-) (test code = 6020700059) eGFR Calculation mL/min/1.73m2 () (test code = 4517936679) GILBERTO (test code = GILBERTO) Association of [...] tests). Lab Interpretation Abnormal (test code = 86124-7) [facility]2020-08-23 11:01:00 Test Item Value Reference Range Interpretation Comments MAGNESIUM (test code = 2070833538) 2.1 mg/dL 1.7-2.4 Lab Interpretation (test code = Normal 73181-2) [facility]2020-08-23 11:01:00 Test Item Value Reference Range Interpretation Comments PHOSPHORUS (test code = 6081772813) 3.4 mg/dL 2.5-5 Lab Interpretation (test code = Normal 11306-5) [facility]CBC WITH [id number] 10:46:00 Test Item Value Reference Range Interpretation [...] RDW-SD (test code = 47.7 fL 38.5-51.6 49046-3) RDW-CV (test code = 15.0 % 12.1-15.4 788-0) PLT (test code = See_Comment H [Automated 777-3) message] The system which generated this result transmit dain reference range : 150 - 328 10*3/ ?L. The reference range was not u sed to interpret th is result as normal/abnormal . MPV (test code = 10.4 fL 9.8-13 78795-5) NRBC/100 WBC (test See_Comment [Automat ed code = [id number]) message] The system which generated this result transmit dain reference range : 0.0 - 10.0 /100 WBCs. The reference range was not used to interpret this result as normal/abnormal . NRBC x10^3 (test code <0.01 See_Comment [Auto mated = [id number]) message] The system which generated this result transmit dain reference range : 10*3/?L. The reference range was not used to interpret this result as normal/abnormal . GRAN MAT (NEUT) % 85.0 % (test code = 770-8) IMM GRAN % (test code 1.10 % = 2137844424) LYMPH % (test code = 7.2 % 736-9) MONO % (test code = 6.4 % 5905-5) EOS % (test code = 0.1 % 713-8) BASO % (test code = 0.2 % 706-2) GRAN MAT x10^3(ANC) 14.87 10*3/uL 1.99-6.95 H (test code = 6469569482) IMM GRAN x10^3 (test 0.20 10*3/uL 0-0.06 H code = 8235744934) LYMPH x10^3 (test code 1.25 10*3/uL 1.09-3.23 = 731-0) MONO x10^3 (test code 1.11 10*3/uL 0.36-1.02 H = 742-7) EOS x10^3 (test code = <0.03 0.06-0.53 L 711-2) BASO x10^3 (test code 0.03 10*3/uL 0.01-0.09 = 704-7) Lab Interpretation Abnormal (test code = 00403-5) [facility] METABOLIC PANEL (NA, K, CL, CO2, GLUCOSE, BUN, CREATININE, CA)2020-04-14 12:15:00 Test Item Value Reference Range Interpretation Comments NA (test code = 134 mmol/L 135-145 L 6378238741) K (test code = 4.9 mmol/L 3.5-5 3389347367) CL (test code = 105 mmol/L 98-108 9817375371) CO2 TOTAL (test code = 23 mmol/L 23-31 0587149017) AGAP (test code = 2-16 1974050440) BUN (test code = 16 mg/dL 7-23 5308076726) GLUCOSE (test code = 102 mg/dL 70-110 9780199354) CREATININE (test code = 0.82 mg/dL 0.6-1.25 5261148018) CALCIUM (test code = 7.9 mg/dL 8.6-10.6 L 2907942144) eGFR Calculation mL/min/1.73m2 (Non-) (test code = 6289140275) eGFR Calculation mL/min/1.73m2 () (test code = 7393125924) GILBERTO (test code = GILBERTO) Association of [...] tests). Lab Interpretation Abnormal (test code = 92369-0) [facility] 12:[facility]00 Test Item Value Reference Range Interpretation Comments MAGNESIUM (test code = 0304234168) 2.1 mg/dL 1.7-2.4 Lab Interpretation (test code = Normal 96199-4) [facility] 12:15:00 Test Item Value Reference Range Interpretation Comments PHOSPHORUS (test code = 9509444264) 4.2 mg/dL 2.5-5 Lab Interpretation (test code = Normal 36213-9) [id number] 11:49:00 Test Item Value Reference Range Interpretation [...] RDW-SD (test code = 48.1 fL 38.5-51.6 98010-0) RDW-CV (test code = 15.1 % 12.1-15.4 788-0) PLT (test code = See_Comment H [Automated 777-3) message] The system which generated this result transmit dain reference range : 150 - 328 10*3/ ?L. The reference range was not u sed to interpret th is result as normal/abnormal . MPV (test code = 10.7 fL 9.8-13 79971-6) NRBC/100 WBC (test See_Comment [Automat ed code = 9049416449) message] The system which generated this result transmit dain reference range : 0.0 - 10.0 /100 WBCs. The reference range was not used to interpret this result as normal/abnormal . NRBC x10^3 (test code <0.01 See_Comment [Auto mated = 9856672086) message] The system which generated this result transmit dain reference range : 10*3/?L. The reference range was not used to interpret this result as normal/abnormal . GRAN MAT (NEUT) % 84.4 % (test code = 770-8) IMM GRAN % (test code 1.10 % = 9631882572) LYMPH % (test code = 7.4 % 736-9) MONO % (test code = 6.8 % 5905-5) EOS % (test code = 0.1 % 713-8) BASO % (test code = 0.2 % 706-2) GRAN MAT x10^3(ANC) 13.45 10*3/uL 1.99-6.95 H (test code = 6540692675) IMM GRAN x10^3 (test 0.18 10*3/uL 0-0.06 H code = 7036423980) LYMPH x10^3 (test code 1.18 10*3/uL 1.09-3.23 = 731-0) MONO x10^3 (test code 1.09 10*3/uL 0.36-1.02 H = 742-7) EOS x10^3 (test code = <0.03 0.06-0.53 L 711-2) BASO x10^3 (test code 0.03 10*3/uL 0.01-0.09 = 704-7) Lab Interpretation Abnormal (test code = 82404-1) [facility] TOTAL BODY [id number] 01:27:00 Test Item Value Reference Range Interpretation Comments LDH BF (test code = >6450 U/L 7905724327) UNSPUN BODY FLUID Yellow COLOR (test code = 2466275251) UNSPUN BODY FLUID Turbid CLARITY (test code = 3716260604) SPUN BODY FLUID Yellow COLOR (test code = 7485413848) SPUN BODY FLUID Clear CLARITY (test code = 9128406317) Sediment (test code The sediment volume is 0.1 = 8333748664) mLs of the total fluid volume of 5mLs and its color is Red/White. GILBERTO (test code = Test developed and GILBERTO) characteristics determined by [facility] Laboratory Services. [facility] METABOLIC PANEL (NA, K, CL, CO2, GLUCOSE, BUN, CREATININE, CA)2020-04-14 00:15:00 Test Item Value Reference Range Interpretation Comments NA (test code = 132 mmol/L 135-145 L 2414579973) K (test code = 5.3 mmol/L 3.5-5 H 7353313585) CL (test code = 105 mmol/L 98-108 7122927234) CO2 TOTAL (test code = 20 mmol/L 23-31 L 9000085270) AGAP (test code = 2-16 7412646407) BUN (test code = 14 mg/dL 7-23 2636785703) GLUCOSE (test code = 280 mg/dL 70-110 H 4709773106) CREATININE (test code = 0.75 mg/dL 0.6-1.25 5958369070) CALCIUM (test code = 7.4 mg/dL 8.6-10.6 L 7469260113) eGFR Calculation mL/min/1.73m2 (Non-) (test code = 7999495050) eGFR Calculation mL/min/1.73m2 () (test code = 9631954490) GILBERTO (test code = GILBERTO) Association of [...] tests). Lab Interpretation Abnormal (test code = 32663-7) [facility] WITHOUT [id number] 00:01:00 Test Item Value Reference Range Interpretation Comments WBC (test code = 6690-2) See_Comment H [A utomated message] The system [employer] generated this result transmit dain reference range : 4.20 - 10.70 10*3/?L. The reference range was not used to interpret this result as normal/abnormal . RBC (test code = 789-8) See_Comment L [Au tomated message] The system [employer] generated this result transmit dain reference range [...] See_Comment H [Au tomated message] The system [employer] generated this result transmit dain reference range : 150 - 328 10*3/?L. The reference range was not used to interpret this result as normal/abnormal . MPV (test code = 10.2 fL 9.8-13 34840-5) RDW-CV (test code = 15.3 % 12.1-15.4 788-0) RDW-SD (test code = 49.1 fL 38.5-51.6 27932-7) NRBC x10^3 (test code = <0.01 See_Comment [Au tomated message] 6218761855) The system [employer] generated this result transmit dain reference range : 10*3/?L. The reference range was not used to interpret this result as normal/abnormal . NRBC/100 WBC (test code See_Comment [Au tomated message] = 2118329259) The system [employer] ch generated this result transmit dain reference range : 0.0 - 10.0 /100 WBC s. The reference r meredith was not used to interpret this result as normal/abnormal . IPF % (test code = 7044237871) Lab Interpretation (test Abnormal code = 90523-3) [facility] [id number] 23:40:00 Test Item Value Reference Range Interpretation Comments BF COLOR Yellow (test code = 3315500004) BF WBC Count See_Comment [Automated (test code = message] The sy stem 5291515250) which generated this result transmitted reference range : /?L. The refere nce range was not u sed to interpret th is result as normal/abnormal . BF RBC Count <3000 See_Comment [Automated (test code = message] The sy stem 3738363255) which generated this result transmitted reference range : /?L. The refere nce range was not u sed to interpret th is result as normal/abnormal . GILBERTO (test The reference range code = GILBERTO) and other method performance specifications have not been established for this body fluid. ?The test results must be integrated into the clinical context for interpretation. [facility] FL[facility] MANUAL [id number] 23:40:00 Test Item Value Reference Range Interpretation Comments BF SEGS (test code 99 % = 6201361331) BF LYMPHS (test 1 % code = 1838276421) #CELS CNTD (test code = 3439556972) GILBERTO (test code = Possible intracellular GILBERTO) bacteria. [facility] AllenGLUCOSE BODY [id number] 23:17:00 Test Item Value Reference Range Interpretation Comments GLUCOSE BF (test <20 mg/dL code = 6200744368) UNSPUN BODY FLUID Yellow COLOR (test code = 1407650533) UNSPUN BODY FLUID Turbid CLARITY (test code = 5494156165) SPUN BODY FLUID Yellow COLOR (test code = 6500264772) SPUN BODY FLUID Clear CLARITY (test code = 0678055447) Sediment (test code The sediment volume is 0.1 = 8596206630) mLs of the total fluid volume of 5mLs and its color is Red/White. GILBERTO (test code = Test developed and GILBERTO) characteristics determined by [facility] Laboratory Services. [facility] Allen[facility]PROTEIN BODY [id number] 22:52:00 Test Item Value Reference Range Interpretation Comments T.PROT BF (test 3000.0 mg/dL code = 3212515953) UNSPUN BODY FLUID Yellow COLOR (test code = 2179408646) UNSPUN BODY FLUID Turbid CLARITY (test code = 3874631004) SPUN BODY FLUID Yellow COLOR (test code = 3240335975) SPUN BODY FLUID Clear CLARITY (test code = 7363387192) Sediment (test code The sediment volume is 0.1 = 8589937322) mLs of the total fluid volume of 5mLs and its color is Red/White. GILBERTO (test code = Test developed and GILBERTO) characteristics determined by [facility] Laboratory Services. [facility] AllenURINE [id number] 19:44:00 Test Item Value Reference Range Interpretation Comments URINE CULTURE (test No aerobic growth (< code = 630-4) 1000 CFU/mL) [facility] AllenGRAM NEGATIVE BLOOD PATHOGENS DNA [id number] 13:23:00 Test Item Value Reference Range Interpretation Comments Enterobacter species Positive Negative A (test code = 21000-6) GILBERTO (test code = GILBERTO) See blood culture result for additional information. ?Testing included eight identification and six resistance marker targets. Lab Interpretation Abnormal (test code = 53950-8) [facility] AllenCBC WITH [id number] 12:43:00 Test Item Value Reference Range Interpretation Comments WBC (test code = See_Comment H [Automated 1142-2) message] The system which generated this result [...] RDW-SD (test code = 49.8 fL 38.5-51.6 46551-6) RDW-CV (test code = 15.3 % 12.1-15.4 788-0) PLT (test code = See_Comment H [Automated 777-3) message] The system which generated this result transmit dain reference range : 150 - 328 10*3/ ?L. The reference range was not u sed to interpret th is result as normal/abnormal . MPV (test code = 10.7 fL 9.8-13 54996-0) NRBC/100 WBC (test See_Comment [Automat ed code = 2419405890) message] The system which generated this result transmit dain reference range : 0.0 - 10.0 /100 WBCs. The reference range was not used to interpret this result as normal/abnormal . NRBC x10^3 (test code <0.01 See_Comment [Auto mated = 2266163655) message] The system which generated this result transmit dain reference range : 10*3/?L. The reference range was not used to interpret this result as normal/abnormal . GRAN MAT (NEUT) % 81.3 % (test code = 770-8) IMM GRAN % (test code 1.40 % = 6518294955) LYMPH % (test code = 8.0 % 736-9) MONO % (test code = 8.9 % 5905-5) EOS % (test code = 0.2 % 713-8) BASO % (test code = 0.2 % 706-2) GRAN MAT x10^3(ANC) 10.74 10*3/uL 1.99-6.95 H (test code = 6732942657) IMM GRAN x10^3 (test 0.18 10*3/uL 0-0.06 H code = 0645576647) LYMPH x10^3 (test code 1.06 10*3/uL 1.09-3.23 L = 731-0) MONO x10^3 (test code 1.17 10*3/uL 0.36-1.02 H = 742-7) EOS x10^3 (test code = <0.03 0.06-0.53 L 711-2) BASO x10^3 (test code <0.03 0.01-0.09 = 704-7) Lab Interpretation Abnormal (test code = 82135-1) [facility] (NA, K, CL, CO2, GLUCOSE, BUN, CREATININE, CA)2020-04-13 11:57:00 Test Item Value Reference Range Interpretation Comments NA (test code = 134 mmol/L 135-145 L 8906235819) K (test code = 4.6 mmol/L 3.5-5 7826176141) CL (test code = 106 mmol/L 98-108 5370650611) CO2 TOTAL (test code = 23 mmol/L 23-31 1638899734) AGAP (test code = 2-16 8259651058) BUN (test code = 14 mg/dL 7-23 1513105756) GLUCOSE (test code = 106 mg/dL 70-110 3487201753) CREATININE (test code = 0.84 mg/dL 0.6-1.25 6848897669) CALCIUM (test code = 7.7 mg/dL 8.6-10.6 L 9450793328) eGFR Calculation mL/min/1.73m2 (Non-) (test code = 1823239984) eGFR Calculation mL/min/1.73m2 () (test code = 8975916811) GILBERTO (test code = GILBERTO) Association of [...] tests). Lab Interpretation Abnormal (test code = 39197-7) [facility]2020-08-21 11:57:00 Test Item Value Reference Range Interpretation Comments MAGNESIUM (test code = 5448409430) 2.1 mg/dL 1.7-2.4 Lab Interpretation (test code = Normal 45770-7) [facility]PHOSPHORUS2020-08-21 11:57:00 Test Item Value Reference Range Interpretation Comments PHOSPHORUS (test code = 5918050033) 3.4 mg/dL 2.5-5 Lab Interpretation (test code = Normal 20603-1) [facility] AllenCT ABDOMEN PELVIS W [id number] 00:22:08 1. ?Multiple intraperitoneal collections as detailed [...] this study and agree with the abovereport. [facility] AllenURINALYSIS2020-08-20 23:20:00 Test Item Value Reference Range Interpretation Comments APPEARANCE (test code = Clear Clear 8042696593) COLOR (test code = Yellow Yellow 8597063568) PH (test code = 4.8-8.0 8743839128) SP GRAVITY (test code = 1.003-1.030 2023402707) GLU U QUAL (test code = Normal Normal 2598161299) BLOOD (test code = Negative Negative 8719375295) KETONES (test code = Negative Negative 7766085560) PROTEIN (test code = 30 mg/dL Negative A 2887-8) UROBILIN (test code = Normal Normal 7853501107) BILIRUBIN (test code = Negative Negative 8572684622) NITRITE (test code = Negative Negative 5443508430) LEUK ROGER (test code = Negative Negative 6363508297) RBC/HPF (test code = See_Comment [Autom ated message] 9104392093) The system [employer] generated this result transmitted ref erence range: 0 - 3 HP F. The reference range was not used to int erpret this result as normal/abnormal . WBC/HPF (test code = <1 See_Comment [Autom ated message] 4438655195) The system [employer] generated this result transmitted ref erence range: 0 - 5 HP F. The reference range was not used to int erpret this result as normal/abnormal . BACTERIA (test code = Negative Negative 1675420512) MUCOUS (test code = Slight Negative LPF A 6187071473) SQ EPITH (test code = See_Comment [Auto mated message] 2112938322) The system [employer] generated this result transmitted ref erence range: <=2 HPF. The reference range was not used to int erpret this result as normal/abnormal . Lab Interpretation (test Abnormal code = 25283-3) [facility] WITH [id number] 12:08:00 Test Item Value Reference Range Interpretation [...] RDW-SD (test code = 48.9 fL 38.5-51.6 11053-2) RDW-CV (test code = 15.4 % 12.1-15.4 788-0) PLT (test code = See_Comment [Automated 777-3) message] The sy stem which generated this result transmitted reference range : 150 - 328 10*3/ ?L. The reference r meredith was not used to interpret this result as normal/abnormal . MPV (test code = 11.2 fL 9.8-13 28218-9) NRBC/100 WBC (test See_Comment [Automat ed code = 6455011697) message] The system which generated this result transmitted reference range : 0.0 - 10.0 /100 WBCs. The refer ence range was not u sed to interpret th is result as normal/abnormal . NRBC x10^3 (test code <0.01 See_Comment [Auto mated = 9520383438) message] The s ystem which generated this result transmitted reference range : 10*3/?L. The reference range was not used to interpret this result as normal/abnormal . GRAN MAT (NEUT) % 79.9 % (test code = 770-8) IMM GRAN % (test code 1.30 % = 2445423680) LYMPH % (test code = 7.4 % 736-9) MONO % (test code = 11.0 % 5905-5) EOS % (test code = 0.2 % 713-8) BASO % (test code = 0.2 % 706-2) GRAN MAT x10^3(ANC) 9.56 10*3/uL 1.99-6.95 H (test code = 6085301230) IMM GRAN x10^3 (test 0.15 10*3/uL 0-0.06 H code = 4373922470) LYMPH x10^3 (test code 0.89 10*3/uL 1.09-3.23 L = 731-0) MONO x10^3 (test code 1.32 10*3/uL 0.36-1.02 H = 742-7) EOS x10^3 (test code = <0.03 0.06-0.53 L 711-2) BASO x10^3 (test code <0.03 0.01-0.09 = 704-7) Lab Interpretation Abnormal (test code = 91596-1) [facility] METABOLIC PANEL (NA, K, CL, CO2, GLUCOSE, BUN, CREATININE, CA)2020-04-12 10:43:00 Test Item Value Reference Range Interpretation Comments NA (test code = 133 mmol/L 135-145 L 3799635359) K (test code = 4.3 mmol/L 3.5-5 9770211140) CL (test code = 104 mmol/L 98-108 2353816243) CO2 TOTAL (test code = 22 mmol/L 23-31 L 4192413015) AGAP (test code = 2-16 3093204285) BUN (test code = 20 mg/dL 7-23 1521595064) GLUCOSE (test code = 108 mg/dL 70-110 6236690786) CREATININE (test code = 0.77 mg/dL 0.6-1.25 2613033593) CALCIUM (test code = 8.1 mg/dL 8.6-10.6 L 9025736623) eGFR Calculation mL/min/1.73m2 (Non-) (test code = 0655479261) eGFR Calculation mL/min/1.73m2 () (test code = 0909591548) GILBERTO (test code = GILBERTO) Association of [...] tests). Lab Interpretation Abnormal (test code = 79069-8) [facility]2020-[facility]-20 10:43:00 Test Item Value Reference Range Interpretation Comments MAGNESIUM (test code = 7912914310) 2.0 mg/dL 1.7-2.4 Lab Interpretation (test code = Normal 37241-3) [facility]PH[facility]2020-08-20 10:43:00 Test Item Value Reference Range Interpretation Comments PHOSPHORUS (test code = 7725905555) 4.3 mg/dL 2.5-5 Lab Interpretation (test code = Normal 69716-0) [facility] AllenBLOOD CULTURE [id number] 04:01:00 Test Item Value Reference Range Interpretation Comments Blood Culture-Aerobic No organisms No growth Previo us (test code = 88261-8) isolated prelim inary verified result was Culture [...] Culture-Anaerobic isolated preliminar y (test code = 63296-1) verifi ed result was Culture In Progress [...] CDT Lab Interpretation Normal (test code = 72770-5) [facility] [id number] 04:01:00 Test Item Value Reference Range Interpretation Comments Blood Culture-Aerobic No organisms No growth Previo us (test code = 39461-5) isolated prelim inary verified result was Culture [...] Culture-Anaerobic isolated preliminar y (test code = 15661-6) verifi ed result was Culture In Progress [...] CDT Lab Interpretation Normal (test code = 45863-9) [facility] (NA, K, CL, CO2, GLUCOSE, BUN, CREATININE, CA)2020-04-11 10:13:00 Test Item Value Reference Range Interpretation Comments NA (test code = 138 mmol/L 135-145 6824516821) K (test code = 3.9 mmol/L 3.5-5 8665295888) CL (test code = 106 mmol/L 98-108 6950752957) CO2 TOTAL (test code = 27 mmol/L 23-31 2027070618) AGAP (test code = 2-16 6836936800) BUN (test code = 24 mg/dL 7-23 H 4513448997) GLUCOSE (test code = 97 mg/dL 70-110 5084023049) CREATININE (test code = 0.63 mg/dL 0.6-1.25 1238262388) CALCIUM (test code = 8.1 mg/dL 8.6-10.6 L 7422751536) eGFR Calculation mL/min/1.73m2 (Non-) (test code = 9346040902) eGFR Calculation mL/min/1.73m2 () (test code = 7251842712) GILBERTO (test code = GILBERTO) Association of [...] tests). Lab Interpretation Abnormal (test code = 72251-0) [facility]2020-08-19 10:13:00 Test Item Value Reference Range Interpretation Comments MAGNESIUM (test code = 1182037071) 1.8 mg/dL 1.7-2.4 Lab Interpretation (test code = Normal 89078-0) [facility]2020-08-19 10:13:00 Test Item Value Reference Range Interpretation Comments PHOSPHORUS (test code = 5851605036) 3.6 mg/dL 2.5-5 Lab Interpretation (test code = Normal 21168-0) [facility] WITH [id number] 10:06:00 Test Item Value Reference Range Interpretation Comments WBC (test code = See_Comment [Automated 5890-2) message] The sy stem which generated this [...] RDW-SD (test code = 48.9 fL 38.5-51.6 55666-1) RDW-CV (test code = 15.3 % 12.1-15.4 788-0) PLT (test code = See_Comment [Automated 777-3) message] The sy stem which generated this result transmitted reference range : 150 - 328 10*3/ ?L. The reference r meredith was not used to interpret this result as normal/abnormal . MPV (test code = 11.7 fL 9.8-13 70482-2) NRBC/100 WBC (test See_Comment [Automat ed code = 1282804422) message] The system which generated this result transmitted reference range : 0.0 - 10.0 /100 WBCs. The refer ence range was not u sed to interpret th is result as normal/abnormal . NRBC x10^3 (test code <0.01 See_Comment [Auto mated = 1274939946) message] The s ystem which generated this result transmitted reference range : 10*3/?L. The reference range was not used to interpret this result as normal/abnormal . GRAN MAT (NEUT) % 75.6 % (test code = 770-8) IMM GRAN % (test code 1.10 % = 8087667584) LYMPH % (test code = 10.5 % 736-9) MONO % (test code = 11.0 % 5905-5) EOS % (test code = 1.5 % 713-8) BASO % (test code = 0.3 % 706-2) GRAN MAT x10^3(ANC) 5.56 10*3/uL 1.99-6.95 (test code = 3574550844) IMM GRAN x10^3 (test 0.08 10*3/uL 0-0.06 H code = 9259249625) LYMPH x10^3 (test code 0.77 10*3/uL 1.09-3.23 L = 731-0) MONO x10^3 (test code 0.81 10*3/uL 0.36-1.02 = 742-7) EOS x10^3 (test code = 0.11 10*3/uL 0.06-0.53 711-2) BASO x10^3 (test code <0.03 0.01-0.09 = 704-7) TOXIC CHANGES (test Present A code = 803-7) Lab Interpretation Abnormal (test code = 20568-7) [facility] [id number] 22:00:00 Test Item Value Reference Range Interpretation Comments Case Report (test code Surgical Pathology ? ? = 7997113775) ?Case: [id number] ? Authorizing Provider: ?Juventino Mccabe MD ? Collected: ? 04/06/2020 1012 ?Ordering Location: ? ? [facility] OR ? Received: ?04/06/2020 1146 ? Department ? Pathologist: ? Shaneka Douglas MD ? Specimen: ? ?SOFT TISSUE, OTHER, ileo rectal anastamosis ? Final Diagnosis (test z0ngsGNdBCDsh8yrVWClnI code = 8541316747) FuZzEwMzNcZnRuYmpcdWMx PQyvsjVlTJoes8HmD1XtYu AwMFxhbnNpXGRlZmxhbmcx CPXwQZG7yhKtFSRwEZuwJK EgWOxmRn6xzGYkyQlsYmLg RXLfd1tirhFCtvvsbRb1l1 miITAtEyR1vASyUVohX5ey uzBqiBHjTSVjVWo5oZ47LF PigB9iiMXcUFuvcjHpKeU9 IRlqCJMlQmJ4APAzkXAdYV LwI7wfKFQnRNsoMWQsNHrf vJRyFVO3gDrsj2Q4xBVqoV UmdJqkIaEjWoAlEAAXs8Na DEl0eJwjS3RpYXXuCrY9aF QgUGFyYWdyYXBoIEZvbnQ7 mD13GKvovcY4kNJip7Afm7 3mt885oQ0elZIzWOA5JELa ODZczJCoERXqRYH6QXRgwC UgJ1yxNRazSJ0oruhhOKJ2 MFxtYXJndDcyMFxtYXJnYj YyrTBrMYIriVciULfxh377 PMO2KdNzLI7dS7Esk1D6aI 9maXRcZGVmdGFiNzIwXGZv ee8hvXZrIXsqo0ClPJC4oh J8yQOlcEYfXHQuDO04Wcng q3PzWznxARE0BFCgeaNpn6 Rfe2hyZvVuuaWoY0haE6Pf ZHJoZWFkXHBnYnJkcmZvb3 Uum0OhdQKzjBo7l3efJSCu ULOjgTsss8ikVBV4JJDlI5 E9yICjs2lgIRylJOHkdEB2 ciSaHZEizCAsG0ZteU8jUJ kmSD2jffg9l3omCeZaPR4k augjq3ybULeoUSMyUXL9Lt GqDKQbc4JxaysmIpYcs0Eo iXZmAOmxL92hx300NZOwvv UlG3ovqYRguwotdPHdzpjr QEoblhV8DOXkNQYzOIrbVK YxXGZzMjBcbGFuZzEwMzNc aGljaFxmMVxkYmNoXGYxXG fhZ2jaArCoPgKwJTygBQYc FV9jF29LS47wBLjEMV5qIs GSLTRFNZFDPARLF09XI0uM SFYLHUMeTWRDU35TZvZBMW AYXNNZP9TBA437ZBMfpaDm RSBiTO8oKmPFIFLEEXLETH RIZSAKNETNQBUEEGIlE1fC MHXTEgTVU89FVfPQWAuGIi tAMF6SZGsLLcgeTJoAGHUK MMtVZicqJ2NFE5CWZOmYSF FORFxwYXIgICAgICAgICBQ KVHUUA8KOHTCK1smITEsQC BaLLPnXSYRD3ZNXMkMOnPI YTUKWT8VIACLQVXZDYKFZH VccGFyXHBhclxwbGFpblxm MVxmczIyXGxhbmcxMDMzXG ykX1npLyRnOMNkfWznVWjf w1MlLAPiLXHtMpfpjkCoZZ FeF2ehuAmsUVngWOB3LW5c RW6MA2bEWHR5FnZ8BmYaDe MlOXD4KxRxXI0wzTeikS2m YaGwCpWmJUcnFM5wABNyQ7 quuRIgQYOnTQRfZ8coIfTr pW8alAyjUSgrwsHpDOBulB QdRSRpae06XRJ2CeXnw8Z5 VYJkFbEzKPCmVB4xgVmeHO BeFW6uOYEiD5ihsZ1kjit2 ZbXtDBRkTwA4MEVuwzL7Yp r6ELSrPLyug4atr5UlX8Gv bAJzbYw7k9poSORvBmQ5lG PjZUdqQ2qsqoTmmZBlPCSd VHx9lMxzOwDyUFOuk1ssui BcZmNoYXJzZXQwIENhbGli jpn2dO03JYPaiH8tuCTpFS rkjuVcGuJ5XJjvUPSqKhQ4 CSFopWMuWXZbO4qyZJJnSP viINMjGEijxENnULT1cBad x1L4hGBzfQIvkJydDfVsEe CmVBSPv2BfONt3xKxeX3Dh HTXeWxX0xPPsVOQiDWmhZK LwAZXeihT4zY70PLtgktA8 tPHke9Zno53xf448pN5wgT PcRKC0TKVoTIWgjHNgKWMe AVD9ETKqeUVmJ0vdEXAtEW 2fjladLRieEKokQKFgeQV6 LHBsmNZpP4AhHGAxWPtkLT Penyk9RcQcQy8cdLTryEqo PTufu5tcp6zxnERzZdo3YU IbSsKpYaoiQTrtk5Gdh3xq RJDzve3nPQW5iKYyvOwab1 B7xEZzNNBzyXBfzqQcBVUh BtO5SUekUW0ein35ZUQqSJ H9uh7koXFvcGocspMphXFw QEkmU2StNXXmo461BPRtL0 PiVFJmw3L9gsPyDpLfEDCi rHC4fqX3FFZtQGx5lUMouy Y9gqSkvCZfJ7hxtM7yUURo RB7apxzsb8ntACbkHKieDW EhmQY7wiK3JXDjiHUlN4Zr eI1bGWHaFTltDWJgevq1Tp PmOp4tzZImfFwhJKuwUbvn YWdlXHBnbmNvbnRccGduZG VjXHBsYWluXHBsYWluXGYw RWBrPrKlyCrtzCjatA3yPv EfMiZdMUmfIX5bHYEhT0mv aSFhWUXvNONfI5kuNvGefF 9jaFxmMVxjZjJcZnMyMFxw YXIgSSBoYXZlIHBlcnNvbm DevVeoabB6oEU2SVOpQZyx PYIrFMVjtIUqnr5isNlcUG XhQJ8lPLVwinAwZUxttAdb JLpaVKW8HWNooEOjmAErvZ FkZSBieSByZXNpZGVudHMs HWIbgBcud6Bel4JofPA8jM 6nz4att6InSCZrqOS5WL37 dtC3kR3fOVWmPJ6vIPWaSU 0hpIMruHTnCRRfq59bnGhf cyByZXBvcnQuXHBsYWluXG YyXGZzMjhcbGFuZzEwMzNc aGljaFxmMlxkYmNoXGYyXG ocF0wyXqMgHiTiBBmgFSH3 fQ== Clinical Information Abdominal distention (test code = [R14.0] 7220481425) Gross Description (test c0kijVQwVCNgiGTnIbHsOI code = [id number]) MyYFHpv5lePNKxrPYpGkQg MzNcZnRuYmpcdWMxXGRlZm Dkn5qop977yNSxy6erKEFv NuS6cUIkFINzkGEsJ258IX VwWEkkh8pea2TaOOJmvCOj q3F0REMWsuibrVg9oAazB4 8uo5M1FcdwF1dfTNOmHBby TNPdSIgsbGCsJFC0VHAfZC U4QZpgweSpakC1RQowlDDx UkU7LJp5l5hbgCprXLCrWG G5t7quCLjwrzKzZE0wpy8o rDz7k4msimLdLTHnEZHvkQ VDJINyD4AnoWynGd3mySs4 fPysSamgOAY0Nej0CE9jvl 74xtv4xXdrHXLqlvkwDeK1 YTkwVQXgmugdRIl2VXztAA QzsZCaXSSgiEGjA9LlRPfz UD2idpk3WkNyIV2yclowYX ihHGLkUNP5SkXjDWExd7Ne udfbLzBjnf9krd20RWR6p7 IqkRlyYJQ8LWG1QxNyNt8l kXAmIWLiSI9bWwBkmHTnIJ Twil04uMbeUCgoqfKsyR0y VdGzWNLnwGRuIPEqKL9wlL ItLEChnY1pujprARLjJxVu wofzKVWoiTzvgbCxQs2jhC foLNR1ORpjD4obwK9iRbH8 QAjzX6gsuO8bYZc6HLhaiE E0DYWwqS5hKU2vdgbbv5qo PBL7FDetUFPbmqV8azJiVV ZzrZWoM6CplY08XfEfqWYc B3YaqX3xXLhdIFKzvdy1Hh UdJu3rfBKbsLY1UFmkPhjo YWdlXHBnbmNvbnRccGduZG VjXHBsYWluXHBsYWluXGYw KSXzSwGeuJkhhApevF1jFm BcZnMyMFxwbGFpblxmMFxm czIwIFNwZWNpbWVuIEEgcm KmJTp2DELdZqXcd0cezGUs YEiuBGG6ePJfOGCvRSUfCU YbYE14J7WjcuSxBRliPPte hcXrMvJgTZVju66vgYB9yJ GxbTFsXHlwCCRvLOAfW9Rt lPDuauZffT4uv3VyeqUiEC 4aIOWuzzFxm8XjZG0bSMDa a6KbnRVkoULxMSFxn6IvdX bqcgSyWjWiwN6aWEPfqsLd v1fhfWKuPN16YMToNXjzHV cerfc7vYCrukTxqbBlC4vi BmAqyb0yBGByZVfruSNpxh bvUGechkToVBE4UfOfMFdz WEEwjSwhwT8dXpOrWgBsCF Q1IzPzZ91vVAsfiSP3ZVJz XLHsctFjo5SpuoCdy4j1gX VyfRDfPOOgL5NwgNVnqrIc lC2yt3Hrgl1mNHDRiOQvq7 Bry8WtjYPkJDUxf0QzsZrh qoAjFQ4qAHidRZ9iJLTdCQ asdWDkev13DLNmSQJsyDzu KJCbIMH8h22zk5imVYKyvP JkLP1xXFR0yIIwlaCxcAC7 hYWdCzLkLArqqXP0JJQmLL gnMFTByBIavTHeZg6lRXXb p41uaOUrnL7yIDSeSIPbSz GhF12eQkVxvGE2sBKijAvk UNunkYMqE3stFNFdIQXaGg CmOeNttUK1wLUavkCpvRLq RK1jhqnvxp2vZWswXXR0sa qqZ4DrDP7heugrboAeGGSs II0nEQ0sNPMqckTstJbtCZ RiKFHarHQoSKxlNQdoF2be ZOGwzbS0VEXlbY5gQMGpsN TlRw0kJPWlc05bv0u8CEF3 fPGylK4brQnwQUJeIRF3j9 6if9ssZJA2VUZaEEBgpP1l GsAgPbSvHWvlIZRaAR3oVC IsHGSlyIBuc0AshXNgjL9i ZBCrkqHehgDmBMTptNX8b6 OoHIZngAAeq7HiJQC0zLRc HUBmskMrFAGnZGByMM4ekF BzNTJydHJqe6BidJK1hMWm RUJcH3Mec81gVUMxJDBrtH BpdQU4PHQmQXXzZEYheHfo cS3hPcGnKgXgRNk9KJPdBO EcKsy3YXDjJPkiIRJiQNSj MjAgQTQuXHBhclxwYXIgU2 UgeUsbsmNzr5CqAobyZAWi TBR4KEZHGSM1RTnjz8IvJ2 otMYkgpJDyE8sqWBOvWDOh USAeoyWbsWi1LPxeTBFbHX D2NFYJeGDjfKHlbWXyoTHv yCSpWBIzsP4uKOVjdRLsu5 EhqAW3hETrCTHttcACTlgl ALXtefEsgkU2xJ8qUFSrlE BltHLqBQZ8ItPvBF3dzaRr kIGgAMKhGKS9gU0mPQ4dTA RjLDpjYEXsi3QnRQRyNNEf KUVsezXpoLm5ACtzMSWsmO LhPLHrfaCgyFdbyY9iAoSd ZnMyMFxwbGFpblxmMVxmcz YqEPNlgGzkVCSyxUNaJB9V IGaRHUMrs8upR4lqlILUj4 Ghv3HfhbPwVWZcBMgxCGXn XGZzMjBccGFyXHFsXHBsYW hsAZYuGHYrUlYdwGjnxI0x ZjBcZnMyMFxwYXJccGFyfQ == Embedded Images (test code = 1255104138) [facility] WITH [id number] 11:29:00 Test Item Value Reference Range Interpretation [...] RDW-SD (test code = 48.8 fL 38.5-51.6 70780-8) RDW-CV (test code = 15.2 % 12.1-15.4 788-0) PLT (test code = See_Comment L [Automated 777-3) message] The sy stem which generated this result transmitted reference range : 150 - 328 10*3/ ?L. The reference r meredith was not used to interpret this result as normal/abnormal . MPV (test code = 11.6 fL 9.8-13 07015-5) NRBC/100 WBC (test See_Comment [Automat ed code = 7914721266) message] The system which generated this result transmitted reference range : 0.0 - 10.0 /100 WBCs. The refer ence range was not u sed to interpret th is result as normal/abnormal . NRBC x10^3 (test code <0.01 See_Comment [Auto mated = 0593016235) message] The s ystem which generated this result transmitted reference range : 10*3/?L. The reference range was not used to interpret this result as normal/abnormal . GRAN MAT (NEUT) % 79.1 % (test code = 770-8) IMM GRAN % (test code 0.50 % = 3516915735) LYMPH % (test code = 11.0 % 736-9) MONO % (test code = 7.8 % 5905-5) EOS % (test code = 1.4 % 713-8) BASO % (test code = 0.2 % 706-2) GRAN MAT x10^3(ANC) 4.67 10*3/uL 1.99-6.95 (test code = 8181388349) IMM GRAN x10^3 (test 0.03 10*3/uL 0-0.06 code = 4701511518) LYMPH x10^3 (test code 0.65 10*3/uL 1.09-3.23 L = 731-0) MONO x10^3 (test code 0.46 10*3/uL 0.36-1.02 = 742-7) EOS x10^3 (test code = 0.08 10*3/uL 0.06-0.53 711-2) BASO x10^3 (test code <0.03 0.01-0.09 = 704-7) Lab Interpretation Abnormal (test code = 70411-5) [facility] Test Item Value Reference Range Interpretation Comments MAGNESIUM (test code = 7754215439) 1.7 mg/dL 1.7-2.4 Lab Interpretation (test code = Normal 66241-5) [facility] 11:19:00 Test Item Value Reference Range Interpretation Comments PHOSPHORUS (test code = 6535874998) 3.0 mg/dL 2.5-5 Lab Interpretation (test code = Normal 71884-4) [facility] [id number] 13:59:01 Interval extubation and removal of enteric [...] reviewed this study and agree with theabove report.[facility] (ALB,T.PRO,BILI T,BU/BC,ALT,AST,ALK PHOS) 2020-04-09 11:52:00 Test Item Value Reference Range Interpretation Comments TOTAL BILI (test code = 8549375577) 1.2 mg/dL 0.1-1.1 H BILI UNCON (test code = 5045843458) 0.8 mg/dL 0.1-1.1 BILI CONJ (test code = 0463879324) 0.0 mg/dL 0-0.3 T PROTEIN (test code = 8699922231) 4.2 g/dL 6.3-8.2 L ALBUMIN (test code = 6268654684) 2.2 g/dL 3.5-5 L ALK PHOS (test code = 1096686032) 36 U/L 34-122 ALTv (test code = 1742-6) 13 U/L 5-50 AST(SGOT) (test code = 8870550622) 23 U/L 13-40 Lab Interpretation (test code = Abnormal 44933-0) [facility] WITH [id number] 10:01:00 Test Item Value Reference Range Interpretation [...] RDW-SD (test code = 47.6 fL 38.5-51.6 99385-8) RDW-CV (test code = 14.8 % 12.1-15.4 788-0) PLT (test code = See_Comment L [Automated 777-3) message] The sy stem which generated this result transmitted reference range : 150 - 328 10*3/ ?L. The reference r meredith was not used to interpret this result as normal/abnormal . MPV (test code = 11.6 fL 9.8-13 53845-3) NRBC/100 WBC (test See_Comment [Automat ed code = 1373756254) message] The system which generated this result transmitted reference range : 0.0 - 10.0 /100 WBCs. The refer ence range was not u sed to interpret th is result as normal/abnormal . NRBC x10^3 (test code <0.01 See_Comment [Auto mated = 7921050815) message] The s ystem which generated this result transmitted reference range : 10*3/?L. The reference range was not used to interpret this result as normal/abnormal . GRAN MAT (NEUT) % 87.5 % (test code = 770-8) IMM GRAN % (test code 0.90 % = 0931927770) LYMPH % (test code = 7.5 % 736-9) MONO % (test code = 3.4 % 5905-5) EOS % (test code = 0.5 % 713-8) BASO % (test code = 0.2 % 706-2) GRAN MAT x10^3(ANC) 5.12 10*3/uL 1.99-6.95 (test code = 5053364102) IMM GRAN x10^3 (test 0.05 10*3/uL 0-0.06 code = 6428036297) LYMPH x10^3 (test code 0.44 10*3/uL 1.09-3.23 L = 731-0) MONO x10^3 (test code 0.20 10*3/uL 0.36-1.02 L = 742-7) EOS x10^3 (test code = 0.03 10*3/uL 0.06-0.53 L 711-2) BASO x10^3 (test code <0.03 0.01-0.09 = 704-7) DOHLE BODIES (test Present A code = 7792-5) TOXIC CHANGES (test Present A code = 803-7) Lab Interpretation Abnormal (test code = 11702-7) [facility] METABOLIC PANEL (NA, K, CL, CO2, GLUCOSE, BUN, CREATININE, CA)2020-04-09 09:37:00 Test Item Value Reference Range Interpretation Comments NA (test code = 135 mmol/L 135-145 5603811967) K (test code = 3.6 mmol/L 3.5-5 4012170620) CL (test code = 105 mmol/L 98-108 8828084727) CO2 TOTAL (test code = 31 mmol/L 23-31 4732043789) AGAP (test code = <1 2-16 L 3180931116) BUN (test code = 28 mg/dL 7-23 H 1834758109) GLUCOSE (test code = 95 mg/dL 70-110 2938565506) CREATININE (test code = 0.78 mg/dL 0.6-1.25 9093207663) CALCIUM (test code = 8.1 mg/dL 8.6-10.6 L 2480122226) eGFR Calculation mL/min/1.73m2 (Non-) (test code = 4598835418) eGFR Calculation mL/min/1.73m2 () (test code = 8389783875) GILBETRO (test code = GILBERTO) Association of [...] tests). Lab Interpretation Abnormal (test code = 98799-5) [facility] 09:36:00 Test Item Value Reference Range Interpretation Comments MAGNESIUM (test code = 7474828312) 1.8 mg/dL 1.7-2.4 Lab Interpretation (test code = Normal 61405-3) [facility] 09:36:00 Test Item Value Reference Range Interpretation Comments PHOSPHORUS (test code = 3815542430) 1.8 mg/dL 2.5-5 L Lab Interpretation (test code = Abnormal 03231-8) [facility] [id number] 21:18:00 Test Item Value Reference Range Interpretation Comments PH (test code = 2) 7.35-7.45 PCO2 (test code = See_Comment [Automate d 0916537650) message] The sy stem which generated this result transmitted reference range : 35 - 45 mmHg. The reference range was not used to interpret this result as normal/abnormal . PO2 (test code = See_Comment L [Automated 6252318305) message] The sy stem which generated this result transmitted reference range : 80 - 100 mmHg. The reference range was not used to interpret this result as normal/abnormal . HCO3 (test code = See_Comment [Automate d 9435686969) message] The sy stem which generated this result transmitted reference range : 22 - 26 mEq/L. The reference range was not used to interpret this result as normal/abnormal . BE (test code = See_Comment [Automated 1652880064) message] The sy stem which generated this result transmitted reference range : -3.0 - 3.0 mEq/ L. The reference r meredith was not used to interpret this result as normal/abnormal . THB (test code = 9.2 g/dL 13.5-18 L 6362912984) %O2HB (test code = 94.3 % 94-99 2222472542) %COHB ART (test code = 0.7 % 0-1.5 3245491538) %METHB ART (test code = 0.3 % 0.4-1.5 L 7402482179) VOL%O2 ART (test code = 12.3 % 15-23 L 3612791603) NA (test code = 135 mmol/L 135-145 0729343006) K+ (test code = 3.7 mmol/L 3.5-5 9718881598) AC CA IONZ (test code = 4.90 mg/dL 4.5-5.3 6651567554) GLUCOSE (test code = 94 mg/dL 70-110 1770465502) LACTIC ACID (test code 1.35 mmol/L = 2703794542) Lab Interpretation Abnormal (test code = 40844-1) [facility] GLUCOSE (AUTOMATED)2020-04-08 16:33:00 Test Item Value Reference Range Interpretation Comments POCT GLU (test code = 1269888440) 109 mg/dL 70-110 Lab Interpretation (test code = Normal 20953-9) [facility] GLUCOSE (AUTOMATED)2020-04-08 16:33:00 Test Item Value Reference Range Interpretation Comments POCT GLU (test code = 2606122192) 120 mg/dL 70-110 H Lab Interpretation (test code = Abnormal 22001-3) [facility] GLUCOSE (AUTOMATED)2020-04-08 16:33:00 Test Item Value Reference Range Interpretation Comments POCT GLU (test code = 6545060372) 93 mg/dL 70-110 Lab Interpretation (test code = Normal 74786-0) [facility] GLUCOSE (AUTOMATED)2020-04-08 12:46:00 Test Item Value Reference Range Interpretation Comments POCT GLU (test code = 2406363667) 109 mg/dL 70-110 Lab Interpretation (test code = Normal 35431-2) [facility] WITH [id number] 10:21:00 Test Item Value Reference Range Interpretation [...] RDW-SD (test code = 48.4 fL 38.5-51.6 48532-3) RDW-CV (test code = 15.0 % 12.1-15.4 788-0) PLT (test code = See_Comment L [Automated 777-3) message] The system which generated this result transmitted reference range : 150 - 328 10*3/?L. The reference range was not used to interpret this result as normal/abnormal . MPV (test code = 11.4 fL 9.8-13 26359-2) NRBC/100 WBC (test See_Comment [Automat ed code = 1737769559) message] The system which generated this result transmitted reference range : 0.0 - 10.0 /100 WBCs. The reference range was not used to interpret this result as normal/abnormal . NRBC x10^3 (test code <0.01 See_Comment [Auto mated = 1484981943) message] The system which generated this result transmitted reference range : 10*3/?L. The reference range was not used to interpret this result as normal/abnormal . GRAN MAT (NEUT) % 84.9 % (test code = 770-8) IMM GRAN % (test code 0.80 % = 5544677976) LYMPH % (test code = 7.9 % 736-9) MONO % (test code = 5.3 % 5905-5) EOS % (test code = 0.3 % 713-8) BASO % (test code = 0.8 % 706-2) GRAN MAT x10^3(ANC) 3.34 10*3/uL 1.99-6.95 (test code = 5527627502) IMM GRAN x10^3 (test 0.03 10*3/uL 0-0.06 code = 6705842389) LYMPH x10^3 (test 0.31 10*3/uL 1.09-3.23 L code = 731-0) MONO x10^3 (test code 0.21 10*3/uL 0.36-1.02 L = 742-7) EOS x10^3 (test code <0.03 0.06-0.53 L = 711-2) BASO x10^3 (test code 0.03 10*3/uL 0.01-0.09 = 704-7) GOLDEN CELLS (test code 2+ See_Comment A [Auto mated = 5568-7) message] The system which generated this result transmitted reference range : (none). The reference range was not used to interpret this result as normal/abnormal . BANDS (test code = MARKED INCREASED A 8176598945) DOHLE BODIES (test Present A code = 7792-5) TOXIC CHANGES (test Present A code = 803-7) Lab Interpretation Abnormal (test code = 11838-9) [facility] METABOLIC PANEL (NA, K, CL, CO2, GLUCOSE, BUN, CREATININE, CA)2020-04-08 10:02:00 Test Item Value Reference Range Interpretation Comments NA (test code = 138 mmol/L 135-145 6436907530) K (test code = 4.1 mmol/L 3.5-5 6317568635) CL (test code = 109 mmol/L 98-108 H 5311660459) CO2 TOTAL (test code = 25 mmol/L 23-31 1642925369) AGAP (test code = 2-16 0307193848) BUN (test code = 26 mg/dL 7-23 H 7104198690) GLUCOSE (test code = 103 mg/dL 70-110 2386747102) CREATININE (test code = 0.90 mg/dL 0.6-1.25 2522966751) CALCIUM (test code = 8.4 mg/dL 8.6-10.6 L 2972004585) eGFR Calculation mL/min/1.73m2 (Non-) (test code = 6362191844) eGFR Calculation mL/min/1.73m2 () (test code = 1294250065) GILBERTO (test code = GILBERTO) Association of [...] tests). Lab Interpretation Abnormal (test code = 63161-1) [facility] 10:02:00 Test Item Value Reference Range Interpretation Comments MAGNESIUM (test code = 8306296035) 2.6 mg/dL 1.7-2.4 H Lab Interpretation (test code = Abnormal 01353-7) [facility]IC [id number] 09:43:00 Test Item Value Reference Range Interpretation Comments PH (test code = 7.32-7.42 0520023513) PCO2 PANKAJ (test code = See_Comment [Auto mated 2616722729) message] The sy stem which generated this result transmitted reference range : 41 - 51 mmHg. The reference range was not used to interpret this result as normal/abnormal . PO2 PANKAJ (test code = See_Comment [Autom ated 2239843642) message] The sy stem which generated this result transmitted reference range : 25 - 40 mmHg. The reference range was not used to interpret this result as normal/abnormal . HCO3 PANKAJ (test code = See_Comment [Auto mated 7963824008) message] The sy stem which generated this result transmitted reference range : 24 - 28 mEq/L. The reference range was not used to interpret this result as normal/abnormal . AC VBE(BEAKER) (test mEq/L code = 9613151091) THB PANKAJ (test code = 11.4 g/dL 13.5-18 L 6568817670) %O2HB PANKAJ (test code = 64.9 % 52-63 H 6978103495) %COHB PANKAJ (test code = 1.0 % 0-1.5 9480721344) %METHB PANKAJ (test code = 0.3 % 0.4-1.5 L 8814511808) VOL%O2 PANKAJ (test code = 10.4 % 6-12 3442109718) NA (test code = 138 mmol/L 135-145 5262478550) K+ (test code = 4.1 mmol/L 3.5-5 1816157357) AC CA IONZ (test code = 4.90 mg/dL 4.5-5.3 7177584907) GLUCOSE (test code = 98 mg/dL 70-110 8298837834) LACTIC ACID (test code 1.90 mmol/L = 8725128346) Lab Interpretation Abnormal (test code = 05285-0) [facility] 04:25:00 Test Item Value Reference Range Interpretation Comments POCT GLU (test code = 0342744226) 106 mg/dL 70-110 Lab Interpretation (test code = Normal 35886-6) [facility] [id number] 22:55:21Impression: Stable findings with no new changes.Exam: [...] unchanged.IMPRESSIONIm pression: Stable findings with no new changes.[facility] / MSSA Screen by ISHA [id number] 19:28:00 Test Item Value Reference Range Interpretation Comments MSSA Screen by PCR, Nares (test code Negative Negative = 82813-2) MRSA/MSSA Positive? (test code = No No 1559383714) Lab Interpretation (test code = Normal 79747-3) [facility]2020-04-07 17:01:00 Test Item Value Reference Range Interpretation Comments POCT GLU (test code = 6127778955) 95 mg/dL 70-110 Lab Interpretation (test code = Normal 03846-6) [facility] + LACTIC [id number] 14:15:00 Test Item Value Reference Range Interpretation Comments PH (test code = 2) 7.35-7.45 L PCO2 (test code = See_Comment [Automate d 6515412172) message] The sy stem which generated this result transmitted reference range : 35 - 45 mmHg. The reference range was not used to interpret this result as normal/abnormal . PO2 (test code = See_Comment H [Automated 8688602189) message] The sy stem which generated this result transmitted reference range : 80 - 100 mmHg. The reference range was not used to interpret this result as normal/abnormal . HCO3 (test code = See_Comment L [Automate d 5127149213) message] The sy stem which generated this result transmitted reference range : 22 - 26 mEq/L. The reference range was not used to interpret this result as normal/abnormal . BE (test code = See_Comment L [Automated 6749674602) message] The sy stem which generated this result transmitted reference range : -3.0 - 3.0 mEq/ L. The reference r meredith was not used to interpret this result as normal/abnormal . THB (test code = 9.6 g/dL 13.5-18 L 5877006702) %O2HB (test code = 98.6 % 94-99 7141698984) %COHB ART (test code = 0.3 % 0-1.5 9705305037) %METHB ART (test code = 0.0 % 0.4-1.5 L 0948724569) VOL%O2 ART (test code = NA 0967823962) NA (test code = 131 mmol/L 135-145 L 8998456478) K+ (test code = 4.3 mmol/L 3.5-5 4760593440) AC CA IONZ (test code = 4.60 mg/dL 4.5-5.3 1597839985) GLUCOSE (test code = 147 mg/dL 70-110 H 0204815237) LACTIC ACID (test code 3.12 mmol/L 0.5-2.2 H = 2722184734) Lab Interpretation Abnormal (test code = 61431-8) [facility] [id number] 14:00:00 Test Item Value Reference Range Interpretation Comments LACTIC ACID (test code = 3.12 mmol/L 0009519518) [facility]2020-[facility]-07 12:53:00 Test Item Value Reference Range Interpretation Comments POCT GLU (test code = 8737060221) 140 mg/dL 70-110 H Lab Interpretation (test code = Abnormal 30459-1) [facility] + LACTIC [id number] 12:01:00 Test Item Value Reference Range Interpretation Comments PH (test code = 2) 7.35-7.45 L PCO2 (test code = See_Comment L [Automate d 4035513113) message] The sy stem which generated this result transmitted reference range : 35 - 45 mmHg. The reference range was not used to interpret this result as normal/abnormal . PO2 (test code = See_Comment H [Automated 4188764623) message] The sy stem which generated this result transmitted reference range : 80 - 100 mmHg. The reference range was not used to interpret this result as normal/abnormal . HCO3 (test code = See_Comment L [Automate d 3358052625) message] The sy stem which generated this result transmitted reference range : 22 - 26 mEq/L. The reference range was not used to interpret this result as normal/abnormal . BE (test code = See_Comment L [Automated 7984231242) message] The sy stem which generated this result transmitted reference range : -3.0 - 3.0 mEq/ L. The reference r meredith was not used to interpret this result as normal/abnormal . THB (test code = 10.8 g/dL 13.5-18 L 7946753163) %O2HB (test code = 98.8 % 94-99 4822994297) %COHB ART (test code = 0.3 % 0-1.5 4785504362) %METHB ART (test code = 0.0 % 0.4-1.5 L 4711074311) VOL%O2 ART (test code = 15.4 % 15-23 4570394511) NA (test code = 126 mmol/L 135-145 L 5334960104) K+ (test code = 4.3 mmol/L 3.5-5 4874440552) AC CA IONZ (test code = 4.70 mg/dL 4.5-5.3 6995274142) GLUCOSE (test code = 144 mg/dL 70-110 H 2761204653) LACTIC ACID (test code 2.79 mmol/L = 0614652861) Lab Interpretation Abnormal (test code = 96200-2) [facility] [id number] 11:44:00 Test Item Value Reference Range Interpretation Comments URINE CULTURE (test No aerobic growth (< code = 630-4) 1000 CFU/mL) [facility] WITH [id number] 09:53:00 Test Item Value Reference Range Interpretation [...] RDW-SD (test code = 48.8 fL 38.5-51.6 27627-1) RDW-CV (test code = 15.0 % 12.1-15.4 788-0) PLT (test code = See_Comment L [Automated 777-3) message] The sy stem which generated this result transmitted reference range : 150 - 328 10*3/ ?L. The reference r meredith was not used to interpret this result as normal/abnormal . MPV (test code = 11.8 fL 9.8-13 13420-5) IPF % (test code = 6.5 % 1.2-10.7 Platelet count 8580510631) measured by fluorescence method. NRBC/100 WBC (test See_Comment [Automat ed code = 3582379338) message] The system which generated this result transmitted reference range : 0.0 - 10.0 /100 WBCs. The refer ence range was not u sed to interpret th is result as normal/abnormal . NRBC x10^3 (test code <0.01 See_Comment [Auto mated = 1834031987) message] The s ystem which generated this result transmitted reference range : 10*3/?L. The reference range was not used to interpret this result as normal/abnormal . SEG % (test code = 20 % 33-76 L 06479-5) BAND % (test code = 45 % 0-1 H 36095-0) META % (test code = 9 % See_Comment H [Automa dain 82153-4) message] The sy stem which generated this result transmitted reference range : <=0. The refere nce range was not u sed to interpret th is result as normal/abnormal . MYELO % (test code = 1 % See_Comment H [Autom ated 44844-8) message] The sy stem which generated this result transmitted reference range : <=0. The refere nce range was not u sed to interpret th is result as normal/abnormal . LYMPH % (test code = 20 % 14-54 44218-6) MONO % (test code = 5 % 0-4 H 37914-9) ANC (test code = 1.40 10*3/uL 1.99-6.95 L 8058747090) GOLDEN CELLS (test code 2+ See_Comment A [Auto mated = 9590-9) message] The sy stem which generated this result transmitted reference range : (none). The reference range was not used to interpret this result as normal/abnormal . SCHISTOCYTES (test 1+ A code = 800-3) DOHLE BODIES (test Present A code = 7792-5) TOXIC CHANGES (test Present A code = 803-7) Lab Interpretation Abnormal (test code = 40730-0) [facility] (NA, K, CL, CO2, GLUCOSE, BUN, CREATININE, CA)2020-04-07 09:21:00 Test Item Value Reference Range Interpretation Comments NA (test code = 137 mmol/L 135-145 2192501820) K (test code = 4.6 mmol/L 3.5-5 8054253466) CL (test code = 110 mmol/L 98-108 H 2440986553) CO2 TOTAL (test code = 17 mmol/L 23-31 L 2585769651) AGAP (test code = 2-16 2385832132) BUN (test code = 24 mg/dL 7-23 H 5000885473) GLUCOSE (test code = 132 mg/dL 70-110 H 2978363286) CREATININE (test code = 1.23 mg/dL 0.6-1.25 5222193323) CALCIUM (test code = 8.0 mg/dL 8.6-10.6 L 9154923793) eGFR Calculation mL/min/1.73m2 (Non-) (test code = 2320380657) eGFR Calculation mL/min/1.73m2 () (test code = 4808956836) GILBERTO (test code = GILBERTO) Association of [...] tests). Lab Interpretation Abnormal (test code = 39744-8) [facility] 09:19:00 Test Item Value Reference Range Interpretation Comments MAGNESIUM (test code = 6126525905) 2.9 mg/dL 1.7-2.4 H Lab Interpretation (test code = Abnormal 99796-0) [facility]2020-[facility]-07 04:37:00 Test Item Value Reference Range Interpretation Comments POCT GLU (test code = 2136979218) 111 mg/dL 70-110 H Lab Interpretation (test code = Abnormal 07093-9) [facility] [id number] 02:35:00 Test Item Value Reference Range Interpretation Comments HCV Ab (test code = 95881-9) Negative HCV Semi-Quantitative (test code = 65116-7) [facility]ACTIC [id number] 02:15:00 Test Item Value Reference Range Interpretation Comments PH (test code = 7.32-7.42 L 6561203699) PCO2 PANKAJ (test code = See_Comment L [Auto mated 0916225034) message] The sy stem which generated this result transmitted reference range : 41 - 51 mmHg. The reference range was not used to interpret this result as normal/abnormal . PO2 PANKAJ (test code = See_Comment HH [Autom ated 2125709996) message] The sy stem which generated this result transmitted reference range : 25 - 40 mmHg. The reference range was not used to interpret this result as normal/abnormal . HCO3 PANKAJ (test code = See_Comment L [Auto mated 7627807741) message] The sy stem which generated this result transmitted reference range : 24 - 28 mEq/L. The reference range was not used to interpret this result as normal/abnormal . AC VBE(BEAKER) (test mEq/L code = 3262241493) THB PANKAJ (test code = 11.2 g/dL 13.5-18 L 4813764165) %O2HB PANKAJ (test code = 98.7 % 52-63 H 5518883795) %COHB PANKAJ (test code = 0.3 % 0-1.5 9794098068) %METHB PANKAJ (test code = 0.1 % 0.4-1.5 L 9635445789) VOL%O2 PANKAJ (test code = 15.9 % 6-12 H 4740278827) NA (test code = 136 mmol/L 135-145 1409174828) K+ (test code = 4.2 mmol/L 3.5-5 2992513742) AC CA IONZ (test code = 4.60 mg/dL 4.5-5.3 9325343606) GLUCOSE (test code = 108 mg/dL 70-110 7784786544) LACTIC ACID (test code 2.37 mmol/L = 1975761275) Lab Interpretation Abnormal (test code = 12187-1) [facility]+K+GLU+CA2+2020-04-07 01:54:00 Test Item Value Reference Range Interpretation Comments PH (test code = 2) 7.35-7.45 LL PCO2 (test code = See_Comment [Automate d message] 3743844861) The system [employer] generated this result transmit dain reference range : 35 - 45 mmHg. The reference range was not used to interpret this result as normal/abnormal . PO2 (test code = See_Comment H [Automated message] 2916096356) The system [employer] generated this result transmit dain reference range : 80 - 100 mmHg. The reference range was not used to interpret this result as normal/abnormal . HCO3 (test code = See_Comment L [Automate d message] 2740541767) The system [employer] generated this result transmit dain reference range : 22 - 26 mEq/L. The reference range was not used to interpret this result as normal/abnormal . BE (test code = See_Comment L [Automated message] 1402461235) The system [employer] generated this result transmit dain reference range : -3.0 - 3.0 mEq/ L. The reference r meredith was not used to interpret this result as normal/abnormal . THB (test code = 10.6 g/dL 13.5-18 L [id number]) %O2HB (test code = 99.0 % 94-99 [id number]) %COHB ART (test code = 0.3 % 0-1.5 [id number]) %METHB ART (test code = 0.3 % 0.4-1.5 L [id number]) VOL%O2 ART (test code = 15.3 % 15-23 [id number]) NA (test code = 136 mmol/L 135-145 2485868214) K+ (test code = 3.1 mmol/L 3.5-5 L 7723658901) AC CA IONZ (test code = 4.30 mg/dL 4.5-5.3 L 4441175476) GLUCOSE (test code = 113 mg/dL 70-110 H 9046131682) Lab Interpretation Abnormal (test code = 05880-2) [facility]2020[facility]-07 01:53:00 Test Item Value Reference Range Interpretation Comments PH (test code = 2) 7.35-7.45 PCO2 (test code = See_Comment L [Automate d message] 1606821002) The system [employer] generated this result transmit dain reference range : 35 - 45 mmHg. The reference range was not used to interpret this result as normal/abnormal . PO2 (test code = See_Comment H [Automated message] 6370948238) The system [employer] generated this result transmit dain reference range : 80 - 100 mmHg. The reference range was not used to interpret this result as normal/abnormal . HCO3 (test code = See_Comment L [Automate d message] 9600489893) The system [employer] generated this result transmit dain reference range : 22 - 26 mEq/L. The reference range was not used to interpret this result as normal/abnormal . BE (test code = See_Comment L [Automated message] 4582417913) The system [employer] generated this result transmit dain reference range : -3.0 - 3.0 mEq/ L. The reference r meredith was not used to interpret this result as normal/abnormal . THB (test code = 13.1 g/dL 13.5-18 L 4380510004) %O2HB (test code = 98.9 % 94-99 3695978508) %COHB ART (test code = 0.1 % 0-1.5 5470386578) %METHB ART (test code = 0.6 % 0.4-1.5 6282230922) VOL%O2 ART (test code = 19.3 % 15-23 0355067252) NA (test code = 132 mmol/L 135-145 L 3149738957) K+ (test code = 4.2 mmol/L 3.5-5 4275697837) AC CA IONZ (test code = 4.60 mg/dL 4.5-5.3 9705695194) GLUCOSE (test code = 99 mg/dL 70-110 5248247308) Lab Interpretation Abnormal (test code = 19088-1) [facility] [id number] 01:29:00 Test Item Value Reference Range Interpretation Comments HIV Negative Negative Semi-quantitative (test code = 43079-3) GILBERTO (test code = Non-reactive for HIV-1 GILBERTO) antigen and HIV-1/HIV-2 antibodies. ?No laboratory evidence of HIV infection. ?Repeat in 2-4 weeks if acute HIV infection is suspected. [facility] GLUCOSE (AUTOMATED)2020-04-07 00:40:00 Test Item Value Reference Range Interpretation Comments POCT GLU (test code = 7480076724) 100 mg/dL 70-110 Lab Interpretation (test code = Normal 42387-5) [facility] GLUCOSE (AUTOMATED)2020-04-07 00:06:00 Test Item Value Reference Range Interpretation Comments POCT GLU (test code = 0418082308) 116 mg/dL 70-110 H Lab Interpretation (test code = Abnormal 98145-1) [facility] GLUCOSE (AUTOMATED)2020-04-06 22:48:00 Test Item Value Reference Range Interpretation Comments POCT GLU (test code = 8796004568) 94 mg/dL 70-110 Lab Interpretation (test code = Normal 68371-3) [facility]ST 1 [id number] 21:06:45 1. Interval placement of right internal [...] reviewed this study and agree with the abovereport.[facility] WITH [id number] 20:15:00 Test Item Value Reference Range Interpretation [...] RDW-SD (test code = 49.2 fL 38.5-51.6 48736-8) RDW-CV (test code = 14.7 % 12.1-15.4 788-0) PLT (test code = See_Comment L [Automated 777-3) message] The sy stem which generated this result transmitted reference range : 150 - 328 10*3/ ?L. The reference r meredith was not used to interpret this result as normal/abnormal . MPV (test code = 12.1 fL 9.8-13 43359-2) NRBC/100 WBC (test See_Comment [Automat ed code = 6101708550) message] The system which generated this result transmitted reference range : 0.0 - 10.0 /100 WBCs. The refer ence range was not u sed to interpret th is result as normal/abnormal . NRBC x10^3 (test code <0.01 See_Comment [Auto mated = 9489629862) message] The s ystem which generated this result transmitted reference range : 10*3/?L. The reference range was not used to interpret this result as normal/abnormal . SEG % (test code = 38 % 33-76 56757-3) BAND % (test code = 28 % 0-1 H 38068-6) META % (test code = 4 % See_Comment H [Automa dain 35200-3) message] The sy stem which generated this result transmitted reference range : <=0. The refere nce range was not u sed to interpret th is result as normal/abnormal . MYELO % (test code = 6 % See_Comment H [Autom ated 40223-2) message] The sy stem which generated this result transmitted reference range : <=0. The refere nce range was not u sed to interpret th is result as normal/abnormal . LYMPH % (test code = 16 % 14-54 55743-0) MONO % (test code = 8 % 0-4 H 94467-7) ANC (test code = 0.40 10*3/uL 1.99-6.95 L 1572639098) GOLDEN CELLS (test code 3+ See_Comment A [Auto mated = 7790-9) message] The sy stem which generated this result transmitted reference range : (none). The reference range was not used to interpret this result as normal/abnormal . DOHLE BODIES (test Present A code = 7792-5) Lab Interpretation Abnormal (test code = 52545-1) [facility] Test Item Value Reference Range Interpretation Comments APTT Patient (test code See_Comment H [Au tomated message] = 3173-2) The system whic h generated this result transmitted ref erence range: 26 - 36 Seconds. The reference range was not used to int erpret this result as normal/abnormal . Lab Interpretation (test Abnormal code = 57159-1) [facility]PROT[facility] / [id number] 19:55:00 Test Item Value Reference Range Interpretation [...] tions. Lab Interpretation (test Abnormal code = 01103-3) [facility]OLIC PANEL (17263)2020-04-06 19:50:00 Test Item Value Reference Range Interpretation Comments NA (test code = 137 mmol/L 135-145 3873024653) K (test code = 3.6 mmol/L 3.5-5 9331260578) CL (test code = 109 mmol/L 98-108 H 9777380674) CO2 TOTAL (test code = 18 mmol/L 23-31 L 6135974432) AGAP (test code = 2-16 6755759825) BUN (test code = 27 mg/dL 7-23 H 5330215946) GLUCOSE (test code = 91 mg/dL 70-110 2385226891) CREATININE (test code = 1.38 mg/dL 0.6-1.25 H 0882390369) TOTAL BILI (test code = 1.0 mg/dL 0.1-1.2 1167291954) CALCIUM (test code = 8.0 mg/dL 8.6-10.6 L 4497235700) T PROTEIN (test code = 4.3 g/dL 6.3-8.2 L 2248205258) ALBUMIN (test code = 2.7 g/dL 3.5-5 L 2911646031) ALK PHOS (test code = <20 34-122 L 8571622638) ALTv (test code = 9 U/L 5-50 1742-6) AST(SGOT) (test code = 21 U/L 13-40 1646213440) eGFR Calculation mL/min/1.73m2 (Non-) (test code = 1432956673) eGFR Calculation mL/min/1.73m2 () (test code = 8508936514) GILBERTO (test code = GILBERTO) Association of [...] tests). Lab Interpretation Abnormal (test code = 77816-9) [facility] (NA, K, CL, CO2, GLUCOSE, BUN, CREATININE, CA)2020-04-06 19:50:00 Test Item Value Reference Range Interpretation Comments NA (test code = 137 mmol/L 135-145 4988966943) K (test code = 3.6 mmol/L 3.5-5 5470778614) CL (test code = 109 mmol/L 98-108 H 6237060451) CO2 TOTAL (test code = 18 mmol/L 23-31 L 6283411960) AGAP (test code = 2-16 5161598938) BUN (test code = 27 mg/dL 7-23 H 5957797902) GLUCOSE (test code = 91 mg/dL 70-110 5026986261) CREATININE (test code = 1.38 mg/dL 0.6-1.25 H 4523406257) CALCIUM (test code = 8.0 mg/dL 8.6-10.6 L 0413026584) eGFR Calculation mL/min/1.73m2 (Non-) (test code = 8475916423) eGFR Calculation mL/min/1.73m2 () (test code = 4856952323) GILBERTO (test code = GILBERTO) Association of [...] tests). Lab Interpretation Abnormal (test code = 15047-6) [facility]2020-[facility]-14 19:44:00 Test Item Value Reference Range Interpretation Comments MAGNESIUM (test code = 9635889233) 1.7 mg/dL 1.7-2.4 Lab Interpretation (test code = Normal 10344-5) [facility] PAN[facility] 21 + LACTIC [id number] 19:25:00 Test Item Value Reference Range Interpretation Comments PH (test code = 7.32-7.42 L 1942026573) PCO2 PANKAJ (test code = See_Comment L [Auto mated 9656251664) message] The sy stem which generated this result transmitted reference range : 41 - 51 mmHg. The reference range was not used to interpret this result as normal/abnormal . PO2 PANKAJ (test code = See_Comment H [Autom ated 4224510565) message] The sy stem which generated this result transmitted reference range : 25 - 40 mmHg. The reference range was not used to interpret this result as normal/abnormal . HCO3 PANKAJ (test code = See_Comment L [Auto mated 7668445406) message] The sy stem which generated this result transmitted reference range : 24 - 28 mEq/L. The reference range was not used to interpret this result as normal/abnormal . AC VBE(BEAKER) (test mEq/L code = 6165545967) THB PANKAJ (test code = 10.1 g/dL 13.5-18 L 4701957512) %O2HB PANKAJ (test code = 84.0 % 52-63 H 2772810378) %COHB PANKAJ (test code = 0.6 % 0-1.5 6668031268) %METHB PANKAJ (test code = 0.3 % 0.4-1.5 L 8541900260) VOL%O2 PANKAJ (test code = 12.0 % 6-12 2181005940) NA (test code = 135 mmol/L 135-145 5840414740) K+ (test code = 3.5 mmol/L 3.5-5 9544694430) AC CA IONZ (test code = 4.50 mg/dL 4.5-5.3 9364626959) GLUCOSE (test code = 87 mg/dL 70-110 5919868896) LACTIC ACID (test code 3.34 mmol/L = 9811224964) Lab Interpretation Abnormal (test code = 46292-2) [facility] + LACTIC [id number] 19:19:00 Test Item Value Reference Range Interpretation Comments PH (test code = 2) 7.35-7.45 L PCO2 (test code = See_Comment L [Automate d 4215601959) message] The sy stem which generated this result transmitted reference range : 35 - 45 mmHg. The reference range was not used to interpret this result as normal/abnormal . PO2 (test code = See_Comment H [Automated 6474230474) message] The sy stem which generated this result transmitted reference range : 80 - 100 mmHg. The reference range was not used to interpret this result as normal/abnormal . HCO3 (test code = See_Comment L [Automate d 3515235159) message] The sy stem which generated this result transmitted reference range : 22 - 26 mEq/L. The reference range was not used to interpret this result as normal/abnormal . BE (test code = See_Comment L [Automated 1132578480) message] The sy stem which generated this result transmitted reference range : -3.0 - 3.0 mEq/ L. The reference r meredith was not used to interpret this result as normal/abnormal . THB (test code = 10.4 g/dL 13.5-18 L 6200781139) %O2HB (test code = 98.3 % 94-99 7894185371) %COHB ART (test code = 0.3 % 0-1.5 9142612156) %METHB ART (test code = 0.3 % 0.4-1.5 L 4484919940) VOL%O2 ART (test code = 14.8 % 15-23 L 1409007401) NA (test code = 135 mmol/L 135-145 7894044954) K+ (test code = 3.5 mmol/L 3.5-5 1475550751) AC CA IONZ (test code = 4.50 mg/dL 4.5-5.3 5576450363) GLUCOSE (test code = 96 mg/dL 70-110 9116574617) LACTIC ACID (test code 2.95 mmol/L = 7392674632) Lab Interpretation Abnormal (test code = 52522-5) [facility] [id number] 16:51:00 Test Item Value Reference Range Interpretation Comments Case Report (test code Surgical Pathology ? ? = 5205380935) ?Case: [id number] ? Authorizing Provider: ?Bia Pedro MD ?Collected: ? 04/03/2020 1513 ?Ordering Location: ? ? [facility] OR ? Received: ?04/03/2020 1657 ? Department ? Pathologist: ? Laverne, Nimisha, PHD ?Specimens: ? A) - COLON, total abdominal colectomy ? B) - COLON, donuts x2 ? Final Diagnosis (test u6prsNXyKTPof3qfNUZpnG code = 6088257786) FuZzEwMzNcZnRuYmpcdWMx EHdpldKaZAxnd7SsG9LgOy AwMFxhbnNpXGRlZmxhbmcx CTLrGJP4rdToQAAuERmkPT ZeZTsnLz6mtFEmbQalVeWj SBHjh2tyvoYMyjrvpIb8z3 huSBNbDwF0iKQhOVveJ3nt pyOhtJOuKPBcUWt3fD30MR MhlK7tfPYhYQdpraVdZHpy xxAryvIxEji0WOHsF8tkXR BaBWOlA7QgOS1wKDWfVuv7 KNJ3EBJ6aSlnu8W0kGPetY DmmJbcBcPdKvAoFUYMm5Fx HIn0uBluQ2QgWFAoNpE7kS QgUGFyYWdyYXBoIEZvbnQ7 xJexM6UjKHRdWjG9rEMcCE SeJJifPWQuEh7syUk2oSvv KcesKDX6Gqg8PY2bcy57iw p1pLdcRMOklidqEzD5EBjn RPCdqurbTEp0MEwcEDOtbJ YtAVCprZCdR6MrEKzxSC0q cjl6AsTtIG3jlmswBAztJE MdACQ6YlVvAVRwe8Yzpazq SmTynk9zhp32BRV9c0XnyS gzIGZ0TVW0GuQzYh3sjUDg TUNbEU2nChJhoONoTHDfkn 71kQypKSihfvUbeK7tYjBj SUHlnFCiIPLcEO9paJToGE ZcoX7izaxgZIVrHbXcqmkm JHHypQhfveKzKr3bnFmeUQ Q7JLjkI7oyrM1uMqN4RFtg E0mzcA8hLEa0KUvenIT1IS CznD5cWU9dtcfzl6abKZT0 EIzgNFSkynR8hbSbJQZdtC OuO6IszC94YyYutVHlQ3Lm bJ0mZQopOZGdsmq2QpMjJq 2wkYMmgOM0DOdsOenxUYnj XHBnbmNvbnRccGduZGVjXH BsYWluXHBsYWluXGYwXGZz YhMxjUldrYoapI5gOiShWz MyMFxwbGFpblxmMVxmczIw APWlhjCZCvGYS4yWLqsdKC 2PHMwkLpWNZAFCEJ6IYgfw YHClDWBhGR7zKbDOM3HWYE NgY37UZ6XFDUhYBjBWAYGF NKBRXl5SQ18GVHVWLB0RXg BDTKzXOZQTK61KMGJZRHZS AvPTKRYEOJFGM3qFRVnqTS OoWDPgLDUnZ9RGZICBU8DP B95xGXJsrfHwBSDwOVWIHI rUYRRQMIDNZHYTI3LCYP6Z LJ2FVFfZVYFaN1gUCLOZDD HsO78SS82TDrWOZqDXINaY IGQELWUOXX5SPJdQCaTFZZ eFHnjIFVNZN1EDROTgnTJx LWIwDTBjXL1ZQ7KVKCUMHE 9OXHBhciAgICAgLSBOTyBF SxyYLQ5SBANUChYEGBCQO3 NWTO0TV3ZEQ3aSJDsiRNWs FUEwDM2uNB6HETRKQcWTFW BTRVNTSUxFIFNFUlJBVEVE VBEMXE8VNWKweWAjYPHaZO AtIFJFQUNUSVZFIExZTVBI JW8ANRXGFFTrthOcNAAiHO YUHPGIYUOjEtHOOQBUXL1H XY8UZzhFDbFtyHQjGHGbbu xwbGFpblxmMVxmczIyXGxh djbqWUIzNWipD5feTwDdDL AjoIvyRKehk7AnNQJbFVZf RJfnrrMvQXWiu0pcRPMmNq O1bNSqVFRSFxHFPyAjEP6z VG6mZHYeEGFjRQyyIiDRFR xwbGFpblxmMVxmczIwXHBh gjekUXX3t1ytvJWaMMOwnX RoDqIjPCUgBICxt1frPNYy bGFuZzEwMzNcZnRuYmpcdW AdDYMjBpDpn8ame410wEIn i4zkPDYqMfM2cOCqPVYerB foqlz0tJuoBpQuOGQvj9li cyBcZmNoYXJzZXQwIEFyaW BxD716IDAoAPvyn5wdk3Kg THYmqHIrb0R1NJZMZNgoIo JxB929l2apj6hrquRoxHM7 ACSqSJX0WNmdkrYdbzB5LE kymBVaMvM5QMreuyQfPLlw paEpudLqTyf4RASiQ115XS R1vBgri0mcIJN8YHItWOPk EcwwVf1ijIZjP721NUUyER SSHCExhYi6RBTjnhBryvEm rDFTy200Z334p8cfYBAveo ExwLtUpzyhi5ayH082VNSm cGVydzEyMjQwXHBhcGVyaD V8JRSbMI8jbetlNQkdBFtf YWUzuqV2ANLsrDEvE5HzXV VgCS9wtifrYBB2DNwhAPHy AVU1KxNaUIVmi1Wfkhl3Na Vhwu1enl95BYW5u7IorCwa SDS2WNG0VwCkEq1rwWAjGU YjLO9rAdSdcHJeHNSupc00 hUjmLKyoyqRbrP9eVnXeDY JirGTzAVTyBM4bzAJvLPTo cA7yquimHSLaKpCovmmsRA UqkPzgemJbFz7opXgyZGA1 YYdmV0esxJ1dRfS9PPxoL1 bebR5aGYy9MUvkpJN7RNYi aQ3nAA9gkfijc7rgHRrhDB ygIUGmgkK5meE8JBPnxJTv C5FdsD9nXZCjNR1myqaeh6 izLPK5MNpsBFRfKZQ7ReHz XMJyy1Ijwpq9AcKsj4DuyV OpDZtnP36qq829IAZknlAx E2wxvTAouutkfVNgwvcuUP vllgY2KAGuISEhFDajKPAw XGZzMjBcbGFuZzEwMzNcaG ljaFxmMVxkYmNoXGYxXGxv Z8lxUdQdF4KdSLVoFcKyaW GxFOspbZA1OXZwGIFro32b wZn8FHUxwxmnl3GzQJGvoX OrgNKzwD5fqdWbj5lwEDPz LFVjICBrK0PzLIO0hSOtMU NzoQSauPM7AI3mmyQyXS1t ZGUgYnkgcmVzaWRlbnRzLC KdLQgzd0hwRQ4tTFUcwOpz jY2kkSD4RBZup2ssiAFpzB Mob0cvt8KrspMuGUwwFJJk BUloTSNyQTFkSB1fJYPeeP CdklRgr3U1ZitvrLNvrwmd HemxqjW4TNszovktVEQgGB auD6qgFrVvFJEpnDvpIwzk s4VuNENzROTyJgadpVZgtA 0= Clinical Information Large bowel (test code = obstruction [K56.609] 0237716464) Gross Description (test r5vwrBOfDSCxsOCrPoQcZY code = 2294084234) HfHACin6nuECTliRDzGvKx MzNcZnRuYmpcdWMxXGRlZm Utp1vnq092lMGcy1snBVKv HaB9rNTgQAKioESeF079NK GzVCvnd2rjm7ZpZDNmgFRq g0Y4CFQUnrnauWx4qRtpT5 0kn9C4FghyN2nkVTGvLIry KOQeSKcgnDAgJQQ0CNVlDU I8NSnxtvNxtdC5BImhaEBo VqS8XWw6p2olhCouNPXmRO L9x1hjULcuwiJxXF4yzc2t zLv4w2bmbsEgJWXjNMSmuX RXIRDqZ8EwmDmzKf6uqKf5 pRyyTvynQYO5Pxg1OM1ycr 43waf2mGhzKIPbcqetLvD6 HXvqQYLdyyqpFXb9PDqxLF VciHDfOCAuqZSkQ1LwNMkc NW7kabv9EiFnJN9aynpgAX soEHJyDYN1MvOkZNMui8Eq ceizCpNbhj2xyu34UBV8v7 KdcSvxGZZ7CSN2XrDeDz0t cPPhOZTzAB1oRrKorTHlOR Eibt07wFytPTrqulFbiQ1g GsMwYEOmgZLlLBLfSN1avU UlOFBllN6vxvctFKExOsJt cfatEBWulApkrbDtDa6rsC wnFNZ2VXuqJ9ibtB1qPgA4 MPzvG7wbjE9hDJa2OKudsC P6ZSAiwY2sJI3iohcph2fh KKB0MTwdWNEyapF6wiRzAM YnxMNrT5QiiE07GbPzrWPv N7AcyQ6sJPftXXVvfyh8To FtGt3yaNXksGV3XMnoUsiy YWdlXHBnbmNvbnRccGduZG VjXHBsYWluXHBsYWluXGYw NZOmAsQtaOoxgWnaeI4xYf BcZnMyMFxwbGFpblxmMVxm czIwIFNwZWNpbWVuIEEgaX VamvYyTBt8UWVhOhOvm1by uBSgOHogMKJws2x3lEX5iI XnzNH6kUFfyQbhAB1cgPWm TAWZOG19iWHhuiNqM46lm7 2pOZSztQPnXBXfZK1diO8k qEEwx6qlZ3NcmFckMIYtjf ZnE48mo7adzSTrt2GyBWD8 m2CojOQfm5rdB9WilSqmo7 ChG9gxYZ4mIYyfKuMlZ10d oB6cqQVwC7YoUNeiJL3vFR InGoFqJ89vhR9dKEhstZD8 DXIgQRnenKjoDJZ4FMUrRI HhzRLehEbuAXhmiPhofM9z DLWxSFMagVRpwgIgTQ5dwY etlKW1DkFtE64iQBpwtGX5 IDGhSIM3lLVoTW8lQMpqr7 NzbHkgaWRlbnRpZmlhYmxl YUNofITzOXx6PaFEkCBor5 Hhl9KaYPkwSFSmzu5tCBPy MM4rIQXnm094zCQ3oYXzQX KwwEM8YKGwrcUkx4Hbss5o VGhlIHNwZWNpbWVuIGlzIG 6eBJ6fEMUldV5yKxVdeHGp EO41lW4qs6IkwECqeMNxWo 9yZGVyLiBUaGVyZSBpcyBh XZBrsyS9uVPhsmRbwSylaS X6DRpkJHyfSTpoODHdY6Yp HIXvk82tLVTxppS0jI76di CyoRMqDAJ8MYJqOUXhtEHv QbUsA35lHxHpxFW1mICfXA rmkVWsBY4rwjwdtwEzsyUi HUCqX15nOtCncZL3xGWxiI LetKvzPQpibSUqM0kbItEB xx76dI7quHB8bpJ7kHSovF VkzrnpcZDseKIeEF16jA1x AULme5ZyZ9rtZFsbu0Wdwj U4zTZnYb86GJntiITaQLdw dGVuZGVkIGZvciBhIGxlbm t1vHTyHgIeIE8pMTFaJcKF oBXgzE0goGzpPTPyj4Gqrv LsWHUsYJqcr77cwDoqUX53 I88zVVPzctOck3JnuLu4VO TsLSH1QH5yUErbT9JnreIy YXIsIHdpdGggYXJlYXMgb2 XnG11xYruic3QnphOeQJUt COXaRD4vPZOxbqBuO6dtLm Elnt2gTKZqPO4dMc72TULg FF4nNLlmRWmwaCqpi0RodN lcXFZye4IqdwSwROGpFMcm k99uhAHzcOkiT5rtaqXyJI JkKXGxsAZmXJU9GQzrZF1p iH3aMOLfy01kJG5wECQpGl OwmAieTZZoZNHeFX8jyA5z towpaKWre5LdNI3vBYDxWR Ccf2pvdaBgyaM5XV3ujZvv chUmpqEhvSdqKMKab3RjhZ JiUZTcnG1jNFZnLOYkheCn rx9at4c6OURjLLXpMI1wUT SucJirDRtyOG9fKDDmkPNw hW2erFxbroW4aXYoJAPgpz BhbiBhZGRpdGlvbmFsIHdl nJlrcAZzkXTmKKO4xzymB7 OoTAOgRNVtMENyr1LxdWV9 fuK7jJGeeAkwt8RmJ7UrCS m1pqO9jY7cVBJkCZYcJOts IRMzhT4nd4udeSNhrWgrr6 CpD8RlNTCskJDiYYnifJxg IB6jHBL5XMAxWIFwi0XvoG TpbHMgQnSawtVrl0HbghAm NFBrDNWheHGnorJvBV6nuD feWzvtZA76IEMlGKueGJOn KR5mfRMnVOJ7qIHtIEAan0 IijPNiXQRvFFMtt8BymBjm IGxpbmUgYXQgdGhlIGJsaW 5mRAGhGArbq9Gchn45heRh XSCcrEGswFPpP3niRLUuEU dla1VuWMPaa7M6LB6hXPgr IHJlbWFpbmluZyBtdWNvc2 Zqk4VxrLdeZGdhRRDbKMzj YXPeKmK1m8SwwMHkuRXjiJ BhbmQgdGhlIHZpYWJpbGl0 jHHpYbX2sZTjsjOkFTI6kZ 6sJR1qiebmneBjXJ6gj2Ag DuLkW7Fzy7OoeAYeEGRdcn 1pbmVkLiBUaGUgcGVyaWNv zT5maRQbAPCqtV6pQEH9wE KfdXDgeVStmKWvyNH1NVDq Fw4wSMZutC3la1xvyDHuuF igtQfkrq1yGMHxROVjahda uusoXaRuzOSbAmHiNJ56NT SjGAgqVBjlLQZ2HNP9HFPl fETjg9mglwaoBQPjfMPng6 LduYN5eKQnPYRtX5Hjp08e DGFcNDBhyLQmqGK2YHPdtH 4gQTEtQTEwLlxwYXJccGFy ETNwC1Nzc27eV04rZDonmK HzGKBdIyCRzj61eV1ndBCb WUJcX1Yha77rdGLmG5lsTF BlbiBmYWNlLCByZXByZXNl pvKkpTa5THqyBCXmREN3DP Ofc3TpxYHtBNFyU0Ysg56u cWIwG3zsVSBcetXpZPHoTF LlVVCyKRNbliCjlDv4MAem MXCsPRZ8GUzfGZ3rWBKkxZ SzaR4hgEteiqI1dIWsBPD8 ehljV6WnHVWyCJQqTYRxaI Vkz0WakTY4hXJjRJTlajXP GHlaSmZalpBnDB78YEIxhp Bgs0LlrVuqhpXkw4RbsSRy d6TkPHGkAAH5LDizOIPoi1 hpbWFsIHRvIHRoZSBkaXN0 KY9oSGPvGJDxFBnxPZFcQK DwNOY5QFZupBSeb2NusBB0 oHVnDKEsJ6Blx17iJA6rNV 02M92wVVKrszIvb9NuoSIb yt5qDSVqYCIfhAC3BE2lVD FoJKAiWJgrMVFvSUy7YBOw SVCis6AwHYC4wnyaF7SiRW NjYXIgZGlzdGFsIHRvIGRp y6VbwkPoOANceiCrOQAvLK EuDEXtjrPpbHo9DYhhOAEr PSt9IARngVPqr4McbGR9cW QbBYGjK8Ikk27pRP0sPB74 H75bHZVlwlHri8HypNAteL I2DLxnzQ2kzBxpHYPgg4Uq bmRlZCBhcmVhXHBhciBBOT rlDL4ob0yetWLeoHwmn8Ij E3GdUPHcmTHlVURkJVSkAK YbyaVthEn4GBoiHTEnQCOf CoXHpn9hxfXeWDD3zO7wPR 9mIGludGVzdGluZSBhdHRh J2xtXWX2isLuc9PulAKmHN BljGEiP4KnIFejwxYwyiQq CKOoeUHpi6NscMT3pPMaKU XbonMQTUK1JBUwtA7ea5zp qWFbuEglfFmuee0kEBYqCL tqh7xtNIqjYWYimLYpTHXf icImdEmdqI0dByThJjRuVB xwbGFpblxmMVxmczIwIFNw ZWNpbWVuIEIgaXMgcmVjZW h5JFUpJrHrt4ctuJJhYZzg YRX0mMQgNKBcECWrSCTvUR 78J7OfzrNtGQjmLMnwueUk SyRyNIJej3xixxxwFA6avT EnPNhnQHybHrgoUA6zMJYc bbTrc6BeKU9dNWQhCD1fg7 BovS6veU0aVHPttuI7giWw VY47AHauPN17PJftVH98BK NtIGFuZCAyLjUgeCAxLjkg iBVlBwhpT42nIcQEv7IwHV TclcX5evVtskYvPbgfDHQ8 MGQfBYYqNIMvgEEotG7wyi ZejgNsyVDuaDZ5QWNtNI78 oHUyzSlrDU3wYlEuMUAqzi DMQW1TCfdfbZUyB3GgMQDw hdC6LShuNURyWGAgHBEcOX BzbWFsbGVyIGRvdWdobnV0 IGluIEIzLiBccGFyXHBhci ETVPG1ZCZijhZlhQbbIBZP VHPfJGEvU2Y6TCEgjTcqVO ZeBRR3cwOhFDIxH4EyOSVU EJXGM4WvAGYqTFtsAPDzDE ZzMTZcbGFuZzEwMzNcaGlj aFxmMVxkYmNoXGYxXGxvY2 tlGbKmM4OqATJnXPNuR09v wOgtcM4mGsRdRrRcPQqlGD BpyKhnwJwofV4tKrPbWzXg MFxwbGFpblxmMVxmczIwXH Bhcn0= Embedded Images (test code = [id number]) [facility]Ana Ahn MD ? ? 04/06/2020 11:06 AMIntubationUrgency: emergent Difficult airway General Information and Staff Patient location during procedure: ORAnesthesiologist: Cynthia Herring MDResident/ACID TESTER: Dana Sampson DOPerformed: anesthesiologist and resident/ACID TESTER Indications and Patient ConditionIndications for airway management: [...] from glidescope to advance tube into airway. [facility] 16:04:Ana Ahn MD ? ? 04/08/2020 ?5:11 AMIntubationUrgency: emergent Difficult airway General Information and Staff Patient location during procedure: ORAnesthesiologist: Cynthia Herring, Arianat/ACID TESTER: Dana Samposn DOPerformed: anesthesiologist and resident/ACID TESTER Indications and Patient ConditionIndications for airway management: [...] glidescope to advance tube into airway. Additional [id number] on VL by CA1, multiple attempts by CA1 with ETT with stylet and bougie, unable to pass ETT through glottis. BVM between attempts. Glidescope stylet with ETT used by faculty under VL, attempt x 1 by faculty, g1v, atraumatic.[facility]XR [id number] 15:42:20 Large volume pneumoperitoneum. Continued gaseous distention and dilatation of the stomach and smallbowelfollowing total colectomy with ileoanal anastomosis may representpostoperative ileus. Findings regarding pneumoperitoneum were already communicated to [facility]. Preliminary Report Dictated by Resident: Bart [...] small bowel and issimilar to prior radiographs. [place] project over the midline in the lowerabdomen. [facility], Radiant Results Inft User - [...] ileus.Findings regarding pneumoperitoneum were already communicated to [facility].Preliminary Report Dictated by Resident: Bart Klein reviewed this study and agree.Weston Ang MD., have reviewed this study andagree with theabove report. [facility]Type and Screen - ONCE [id number] 15:18:48 Test Item Value Reference Range Interpretation Comments ABO & RH (test code O POSITIVE Performe d at [facility] = 20) Laboratory Serv [facility] [address] [facility] s [id number] Free: [phone] A No. [id number] IAT (test code = Negative Performed a t [facility] 1185) Laboratory Serv [facility] [address] [facility] s [id number] Free: [phone] A No. [id number] [facility] CHEST 1 [id number] 15:09:51 1. 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 FINDINGS: Lines/tubes: Enteric tube c ourses over the midline and inferiorly beyondthe diaphragm and [id number]-cqin. Left diaphragm is elevated with interval development of large amount offree air noted under the diaphragms, better seen on concomitant abdominalx-ray. Lungs are clear without focal consolidation, pleural effusion orpneumothorax. The cardiomediastinal silhouette is stable. ?No acute osseousabnormalities. 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 Left diaphragm is elevated with interval development [...] have reviewed this study and agree with theabovereport.[facility] [id number] 14:52:37Ana Syed MD ? ? 04/06/2020 ?9:53 [...] tolerated procedure well with no complications ? [facility] [id number] 14:52:37Ana Syed MD ? ? 04/06/2020 ?9:53 [...] tolerated procedure well with no complications ? [facility] [id number] 14:51:Ana Blair MD ? ? 04/06/2020 ?9:52 [...] complications and all wires accounted for _ [facility] [id number] 14:51:Ana Blair MD ? ? 04/06/2020 ?9:52 [...] complications and all wires accounted for _ [facility] WITH [id number] 13:22:00 Test Item Value Reference Range Interpretation Comments WBC (test code = See_Comment LL [Automated 4190-2) message] The system which generated this result transmitted reference range : 4.20 - 10.70 10*3/?L. The reference range was not used to interpret this result as normal/abnormal . RBC (test code = See_Comment [Automated 709-8) message] The system which generated this result [...] RDW-SD (test code = 47.8 fL 38.5-51.6 42213-5) RDW-CV (test code = 14.6 % 12.1-15.4 788-0) PLT (test code = See_Comment [Automated 777-3) message] The system which generated this result transmitted reference range : 150 - 328 10*3/?L. The reference range was not used to interpret this result as normal/abnormal . MPV (test code = 12.1 fL 9.8-13 78795-0) NRBC/100 WBC (test See_Comment [Automat ed code = 7099457727) message] The system which generated this result transmitted reference range : 0.0 - 10.0 /100 WBCs. The reference range was not used to interpret this result as normal/abnormal . NRBC x10^3 (test code <0.01 See_Comment [Auto mated = 2101235685) message] The system which generated this result transmitted reference range : 10*3/?L. The reference range was not used to interpret this result as normal/abnormal . GRAN MAT (NEUT) % 71.6 % (test code = 770-8) IMM GRAN % (test code 0.90 % = 7036567902) LYMPH % (test code = 18.3 % 736-9) MONO % (test code = 9.2 % 5905-5) EOS % (test code = 0.0 % 713-8) BASO % (test code = 0.0 % 706-2) GRAN MAT x10^3(ANC) 0.78 10*3/uL 1.99-6.95 L (test code = 9619233424) IMM GRAN x10^3 (test <0.03 0-0.06 code = 8239171003) LYMPH x10^3 (test 0.20 10*3/uL 1.09-3.23 L code = 731-0) MONO x10^3 (test code 0.10 10*3/uL 0.36-1.02 L = 742-7) EOS x10^3 (test code <0.03 0.06-0.53 L = 711-2) BASO x10^3 (test code <0.03 0.01-0.09 = 704-7) GOLDEN CELLS (test code 2+ See_Comment A [Auto mated = 1937-9) message] The system which generated this result transmitted reference range : (none). The reference range was not used to interpret this result as normal/abnormal . BANDS (test code = MARKED INCREASED A 3634003900) Lab Interpretation Abnormal (test code = 84621-6) [facility] METABOLIC PANEL (NA, K, CL, CO2, GLUCOSE, BUN, CREATININE, CA)2020-04-06 12:38:00 Test Item Value Reference Range Interpretation Comments NA (test code = 134 mmol/L 135-145 L 6760145681) K (test code = 4.5 mmol/L 3.5-5 8691669424) CL (test code = 105 mmol/L 98-108 8671755554) CO2 TOTAL (test code = 18 mmol/L 23-31 L 9472338394) AGAP (test code = 2-16 9271534431) BUN (test code = 30 mg/dL 7-23 H 6891430472) GLUCOSE (test code = 117 mg/dL 70-110 H 8901846351) CREATININE (test code = 1.95 mg/dL 0.6-1.25 H 1317874510) CALCIUM (test code = 8.6 mg/dL 8.6-10.6 0071109932) eGFR Calculation mL/min/1.73m2 (Non-) (test code = 3494548041) eGFR Calculation mL/min/1.73m2 () (test code = 6963027686) GILBERTO (test code = GILBERTO) Association of [...] tests). Lab Interpretation Abnormal (test code = 37915-0) [facility] Test Item Value Reference Range Interpretation Comments MAGNESIUM (test code = 6935291365) 2.3 mg/dL 1.7-2.4 Lab Interpretation (test code = Normal 88915-5) [facility] [id number] 23:28:32 Prominent gaseous distention of small bowel [...] pelvis. Note: Left hemidiaphragm isnot fully within pttpc-gv-mbvo. FINDINGS: Status post colectomy. Massive gaseous distention [...] and pelvis.Note: Left hemidiaphragm isnot fully within rqwda-hb-puxu.FINDINGS:Status post colectomy.Massive gaseous distention of the stomach [...] and agree with theabove report. [facility] [id number] 23:22:45 Esophogastric tube tip projects over the [...] Bilateralhemidiaphragms and upper abdomen are not within fwxlg-lo-ajem. FINDINGS: The tipof the esophogastric tube projects [...] Bilateralhemidiaphragms and upper abdomen are not within cpvbm-xn-ydxi.FINDINGS:The tip of the esophogastric tube projects over [...] reviewed this study and agree with theabove report.[facility] (NA, K, CL, CO2, GLUCOSE, BUN, CREATININE, CA)2020-04-05 11:08:00 Test Item Value Reference Range Interpretation Comments NA (test code = 137 mmol/L 135-145 6072471016) K (test code = 4.4 mmol/L 3.5-5 3121869441) CL (test code = 104 mmol/L 98-108 4813855567) CO2 TOTAL (test code = 24 mmol/L 23-31 4178404453) AGAP (test code = 2-16 6643795308) BUN (test code = 10 mg/dL 7-23 3933525502) GLUCOSE (test code = 104 mg/dL 70-110 5731229947) CREATININE (test code 1.18 mg/dL 0.6-1.25 = 1057876419) CALCIUM (test code = 8.7 mg/dL 8.6-10.6 0580848531) eGFR Calculation mL/min/1.73m2 (Non-) (test code = 7251373480) eGFR Calculation mL/min/1.73m2 () (test code = 2832629178) GILBERTO (test code = GILBERTO) Association of [...] or abnormalities in imaging tests). [facility]13 11:08:00 Test Item Value Reference Range Interpretation Comments MAGNESIUM (test code = 8593284212) 2.3 mg/dL 1.7-2.4 Lab Interpretation (test code = Normal 29143-4) [facility] WITH [id number] 10:32:00 Test Item Value Reference Range Interpretation [...] RDW-SD (test code = 47.8 fL 38.5-51.6 01561-5) RDW-CV (test code = 14.6 % 12.1-15.4 788-0) PLT (test code = See_Comment [Automated 777-3) message] The sy stem which generated this result transmitted reference range : 150 - 328 10*3/ ?L. The reference r meredith was not used to interpret this result as normal/abnormal . MPV (test code = 11.6 fL 9.8-13 95459-5) NRBC/100 WBC (test See_Comment [Automat ed code = 7854508219) message] The system which generated this result transmitted reference range : 0.0 - 10.0 /100 WBCs. The refer ence range was not u sed to interpret th is result as normal/abnormal . NRBC x10^3 (test code <0.01 See_Comment [Auto mated = 6227640897) message] The s ystem which generated this result transmitted reference range : 10*3/?L. The reference range was not used to interpret this result as normal/abnormal . GRAN MAT (NEUT) % 82.4 % (test code = 770-8) IMM GRAN % (test code 0.30 % = 9325690217) LYMPH % (test code = 12.4 % 736-9) MONO % (test code = 4.5 % 5905-5) EOS % (test code = 0.2 % 713-8) BASO % (test code = 0.2 % 706-2) GRAN MAT x10^3(ANC) 5.12 10*3/uL 1.99-6.95 (test code = 7864260620) IMM GRAN x10^3 (test <0.03 0-0.06 code = 3296802819) LYMPH x10^3 (test code 0.77 10*3/uL 1.09-3.23 L = 731-0) MONO x10^3 (test code 0.28 10*3/uL 0.36-1.02 L = 742-7) EOS x10^3 (test code = <0.03 0.06-0.53 L 711-2) BASO x10^3 (test code <0.03 0.01-0.09 = 704-7) Lab Interpretation Abnormal (test code = 52605-4) [facility] METABOLIC PANEL (NA, K, CL, CO2, GLUCOSE, BUN, CREATININE, CA)2020-04-04 11:02:00 Test Item Value Reference Range Interpretation Comments NA (test code = 135 mmol/L 135-145 1494086740) K (test code = 4.4 mmol/L 3.5-5 Slight 2758378187) hemolysis CL (test code = 103 mmol/L 98-108 6425567663) CO2 TOTAL (test code 26 mmol/L 23-31 = 3470701382) AGAP (test code = 2-16 8904031997) BUN (test code = 7 mg/dL 7-23 Slight 4729107792) hemolysis GLUCOSE (test code = 119 mg/dL 70-110 H 8991084289) CREATININE (test code 0.95 mg/dL 0.6-1.25 = 1468903096) CALCIUM (test code = 8.3 mg/dL 8.6-10.6 L 9742724284) eGFR Calculation mL/min/1.73m2 (Non-) (test code = 0651427069) eGFR Calculation mL/min/1.73m2 () (test code = 7827385057) GILBERTO (test code = GILBERTO) Association of [...] tests). Lab Interpretation Abnormal (test code = 78178-6) [facility] 11:02:00 Test Item Value Reference Range Interpretation Comments MAGNESIUM (test code = 3263207586) 1.7 mg/dL 1.7-2.4 Lab Interpretation (test code = Normal 36666-8) [facility] WITH [id number] 10:31:00 Test Item Value Reference Range Interpretation Comments WBC (test code = See_Comment [Automated 8254-2) message] The sy stem which generated this result transmitted reference range : 4.20 - 10.70 10*3/?L. The reference range was not used to interpret this result as normal/abnormal . RBC (test code = See_Comment L [Automated 383-7) message] The sy stem which generated this [...] RDW-SD (test code = 46.5 fL 38.5-51.6 77578-9) RDW-CV (test code = 14.3 % 12.1-15.4 788-0) PLT (test code = See_Comment L [Automated 777-3) message] The sy stem which generated this result transmitted reference range : 150 - 328 10*3/ ?L. The reference r meredith was not used to interpret this result as normal/abnormal . MPV (test code = 11.2 fL 9.8-13 17447-9) NRBC/100 WBC (test See_Comment [Automat ed code = 2294112111) message] The system which generated this result transmitted reference range : 0.0 - 10.0 /100 WBCs. The refer ence range was not u sed to interpret th is result as normal/abnormal . NRBC x10^3 (test code <0.01 See_Comment [Auto mated = 9256906991) message] The s ystem which generated this result transmitted reference range : 10*3/?L. The reference range was not used to interpret this result as normal/abnormal . GRAN MAT (NEUT) % 76.7 % (test code = 770-8) IMM GRAN % (test code 0.30 % = 0380862427) LYMPH % (test code = 16.4 % 736-9) MONO % (test code = 6.2 % 5905-5) EOS % (test code = 0.2 % 713-8) BASO % (test code = 0.2 % 706-2) GRAN MAT x10^3(ANC) 5.12 10*3/uL 1.99-6.95 (test code = 4585290137) IMM GRAN x10^3 (test <0.03 0-0.06 code = 8672571660) LYMPH x10^3 (test code 1.09 10*3/uL 1.09-3.23 = 731-0) MONO x10^3 (test code 0.41 10*3/uL 0.36-1.02 = 742-7) EOS x10^3 (test code = <0.03 0.06-0.53 L 711-2) BASO x10^3 (test code <0.03 0.01-0.09 = 704-7) Lab Interpretation Abnormal (test code = 50506-6) [facility] WITH [id number] 11:04:00 Test Item Value Reference Range Interpretation [...] RDW-SD (test code = 45.6 fL 38.5-51.6 17421-3) RDW-CV (test code = 14.0 % 12.1-15.4 788-0) PLT (test code = See_Comment L [Automated 777-3) message] The sy stem which generated this result transmitted reference range : 150 - 328 10*3/ ?L. The reference r meredith was not used to interpret this result as normal/abnormal . MPV (test code = 11.2 fL 9.8-13 48501-0) NRBC/100 WBC (test See_Comment [Automat ed code = 6333938178) message] The system which generated this result transmitted reference range : 0.0 - 10.0 /100 WBCs. The refer ence range was not u sed to interpret th is result as normal/abnormal . NRBC x10^3 (test code <0.01 See_Comment [Auto mated = 6291022991) message] The s ystem which generated this result transmitted reference range : 10*3/?L. The reference range was not used to interpret this result as normal/abnormal . GRAN MAT (NEUT) % 52.7 % (test code = 770-8) IMM GRAN % (test code 0.30 % = 1278520908) LYMPH % (test code = 34.6 % 736-9) MONO % (test code = 9.6 % 5905-5) EOS % (test code = 2.2 % 713-8) BASO % (test code = 0.6 % 706-2) GRAN MAT x10^3(ANC) 1.88 10*3/uL 1.99-6.95 L (test code = 6641473374) IMM GRAN x10^3 (test <0.03 0-0.06 code = 4781210024) LYMPH x10^3 (test code 1.23 10*3/uL 1.09-3.23 = 731-0) MONO x10^3 (test code 0.34 10*3/uL 0.36-1.02 L = 742-7) EOS x10^3 (test code = 0.08 10*3/uL 0.06-0.53 711-2) BASO x10^3 (test code <0.03 0.01-0.09 = 704-7) REACT LYMPHS (test Rare code = 9059199387) Lab Interpretation Abnormal (test code = 94440-1) [facility] (NA, K, CL, CO2, GLUCOSE, BUN, CREATININE, CA)2020-04-03 10:54:00 Test Item Value Reference Range Interpretation Comments NA (test code = 140 mmol/L 135-145 6269763468) K (test code = 3.9 mmol/L 3.5-5 4565887504) CL (test code = 107 mmol/L 98-108 7996961553) CO2 TOTAL (test code = 28 mmol/L 23-31 9968653981) AGAP (test code = 2-16 0187138489) BUN (test code = 4 mg/dL 7-23 L 0361775123) GLUCOSE (test code = 88 mg/dL 70-110 5634136722) CREATININE (test code = 0.96 mg/dL 0.6-1.25 0383336809) CALCIUM (test code = 8.6 mg/dL 8.6-10.6 8104653772) eGFR Calculation mL/min/1.73m2 (Non-) (test code = 5540989358) eGFR Calculation mL/min/1.73m2 () (test code = 0041440173) GILBERTO (test code = GILBERTO) Association of [...] tests). Lab Interpretation Abnormal (test code = 46304-8) [facility] 10:54[facility]00 Test Item Value Reference Range Interpretation Comments MAGNESIUM (test code = 5276355928) 2.0 mg/dL 1.7-2.4 Lab Interpretation (test code = Normal 93133-0) [facility] - ONCE [id number] 23:40:25 Test Item Value Reference Range Interpretation Comments ABO & RH (test code O POSITIVE Performe d at [facility] = 20) Laboratory Serv [facility] Blood Bank3 [address] [facility] s [address]Sgfh Free: [phone] A No. [id number] IAT (test code = Negative Performed a t [facility] 1185) Laboratory Serv [facility] Blood Bank3 [address] [facility] s [address]Mhkr Free: [phone] A No. [id number] [facility] WITH [id number] 11:21:00 Test Item Value Reference Range Interpretation [...] RDW-SD (test code = 45.8 fL 38.5-51.6 71659-4) RDW-CV (test code = 14.2 % 12.1-15.4 788-0) PLT (test code = See_Comment L [Automated 777-3) message] The sy stem which generated this result transmitted reference range : 150 - 328 10*3/ ?L. The reference r meredith was not used to interpret this result as normal/abnormal . MPV (test code = 10.6 fL 9.8-13 10376-8) NRBC/100 WBC (test See_Comment [Automat ed code = 2861739883) message] The system which generated this result transmitted reference range : 0.0 - 10.0 /100 WBCs. The refer ence range was not u sed to interpret th is result as normal/abnormal . NRBC x10^3 (test code <0.01 See_Comment [Auto mated = 4533480847) message] The s ystem which generated this result transmitted reference range : 10*3/?L. The reference range was not used to interpret this result as normal/abnormal . GRAN MAT (NEUT) % 46.4 % (test code = 770-8) IMM GRAN % (test code 0.30 % = 9924666825) LYMPH % (test code = 38.8 % 736-9) MONO % (test code = 10.5 % 5905-5) EOS % (test code = 3.3 % 713-8) BASO % (test code = 0.7 % 706-2) GRAN MAT x10^3(ANC) 1.41 10*3/uL 1.99-6.95 L (test code = 5955456162) IMM GRAN x10^3 (test <0.03 0-0.06 code = 2989965733) LYMPH x10^3 (test code 1.18 10*3/uL 1.09-3.23 [...] . Lab Interpretation Abnormal (test code = 27501-6) [facility] (NA, K, CL, CO2, GLUCOSE, BUN, CREATININE, CA)2020-04-02 11:05:00 Test Item Value Reference Range Interpretation Comments NA (test code = 139 mmol/L 135-145 1804811210) K (test code = 4.0 mmol/L 3.5-5 0267400693) CL (test code = 108 mmol/L 98-108 1850333708) CO2 TOTAL (test code = 25 mmol/L 23-31 3460309073) AGAP (test code = 2-16 8987553449) BUN (test code = 6 mg/dL 7-23 L 4477571578) GLUCOSE (test code = 99 mg/dL 70-110 2309344580) CREATININE (test code = 0.92 mg/dL 0.6-1.25 2316549250) CALCIUM (test code = 8.3 mg/dL 8.6-10.6 L 6309406034) eGFR Calculation mL/min/1.73m2 (Non-) (test code = 0333533706) eGFR Calculation mL/min/1.73m2 () (test code = 6842112063) GILBERTO (test code = GILBERTO) Association of [...] tests). Lab Interpretation Abnormal (test code = 82329-5) [facility]10 11:05:00 Test Item Value Reference Range Interpretation Comments MAGNESIUM (test code = 7458394563) 2.0 mg/dL 1.7-2.4 Lab Interpretation (test code = Normal 74414-8) [facility] (ID NOW RAPID TESTING)2020-04-02 00:43:00 Test Item Value Reference Range Interpretation Comments SARS-CoV-2 Rapid ID NOW Not Detected Not Detected (test code = 88767-2) GILBERTO (test code = GILBERTO) ID NOW COVID-19 Assay is an isothermal nucleic acid amplification test intended for the qualitative detection of nucleic acid from SARS-CoV-2 viral RNA in nasopharyngeal ([employer]) specimens. It is used under Emergency Use [...] indicated. Lab Interpretation Normal (test code = 62491-8) [facility] AllenUrinalysis2020-08-08 11:39:00 Test Item Value Reference Range Interpretation Comments APPEARANCE (test code = Hazy Clear A 6637172138) COLOR (test code = Yellow Yellow 0195437016) PH (test code = 4.8-8.0 9136175762) SP GRAVITY (test code = 1.003-1.030 H 3864666121) GLU U QUAL (test code = Normal Normal 7863726400) BLOOD (test code = Negative Negative 5163430363) KETONES (test code = 5 mg/dL Negative A 4389383067) PROTEIN (test code = Negative Negative 2887-8) UROBILIN (test code = 2.0 mg/dL Normal A 2134647950) BILIRUBIN (test code = Negative Negative 0291049395) NITRITE (test code = Negative Negative 9719519021) LEUK ROGER (test code = Negative Negative 4422871430) RBC/HPF (test code = See_Comment [Autom ated message] 2088061927) The system [employer] generated this result transmit dain reference range : 0 - 3 HPF. The refe rence range was not u sed to interpret th is result as normal/abnormal . WBC/HPF (test code = See_Comment [Autom ated message] 3962564046) The system [employer] generated this result transmit dain reference range : 0 - 5 HPF. The refe rence range was not u sed to interpret th is result as normal/abnormal . BACTERIA (test code = Negative Negative 3905103578) CA OXALATE (test code = See_Comment H [Au tomated message] 6467317312) The system [employer] generated this result transmit dain reference range : <=1 HPF. The refere nce range was not u sed to interpret th is result as normal/abnormal . Lab Interpretation (test Abnormal code = 77349-8) [facility] ABDOMEN PELVIS W [id number] 00:38:37 1. ?Massive air distention of the [...] clear. There are no suspicious focal osseouslesions. [facility], Radiant Results Inft User - 03/30/2020 7:39 [...] [facility] (NA, K, CL, CO2, GLUCOSE, BUN, CREATININE, CA)2020-03-30 23:45:00 Test Item Value Reference Range Interpretation Comments NA (test code = 140 mmol/L 135-145 7873787202) K (test code = 4.3 mmol/L 3.5-5 2114135924) CL (test code = 101 mmol/L 98-108 6866043322) CO2 TOTAL (test code = 28 mmol/L 23-31 9115522058) AGAP (test code = 2-16 7095914779) BUN (test code = 24 mg/dL 7-23 H 1026927432) GLUCOSE (test code = 90 mg/dL 70-110 0374171608) CREATININE (test code = 1.29 mg/dL 0.6-1.25 H 6994642251) CALCIUM (test code = 9.4 mg/dL 8.6-10.6 7574819112) eGFR Calculation mL/min/1.73m2 (Non-) (test code = 4654870100) eGFR Calculation mL/min/1.73m2 () (test code = 0700960925) GILBERTO (test code = GILBERTO) Association of [...] tests). Lab Interpretation Abnormal (test code = 44286-3) [facility] 1 [id number] 23:00:46 No evidence for an acute cardiopulmonary [...] on the March 02, 2020 exam.RL: 3708 [facility]enTroponin [id number] 22:39:00 Test Item Value Reference Range Interpretation Comments TROPONIN I (test 0.008 ng/mL See_Comment [Automated code = 7051057107) message] The system which generated this result [...] ? Lab Interpretation Normal (test code = 64736-0) [facility]AL [id number] 22:39:00 Test Item Value Reference Range Interpretation Comments NT-proBNP (test code 42 pg/mL See_Comment [Autom ated = 6915960013) message] The system which generated this result transmitted reference range : <=125. The reference range was not used to interpret this result as normal/abnormal . GILBERTO (test code = GILBERTO) Biotin has been reported to cause a negative bias, interpret results relative to patient's use of biotin. Lab Interpretation Normal (test code = 87628-0) [facility] Function Panel (ALB, T.PRO, BILI T, BU/BC, ALT, AST, ALK PHOS)2020-03-30 22:27:00 Test Item Value Reference Range Interpretation Comments TOTAL BILI (test code = 6566139278) 0.5 mg/dL 0.1-1.1 BILI UNCON (test code = 7516563139) 0.3 mg/dL 0.1-1.1 BILI CONJ (test code = 9364520605) 0.0 mg/dL 0-0.3 T PROTEIN (test code = 7544423476) 6.7 g/dL 6.3-8.2 ALBUMIN (test code = 0882436335) 4.5 g/dL 3.5-5 ALK PHOS (test code = 4184067082) 57 U/L 34-122 ALTv (test code = 1742-6) 31 U/L 5-50 AST(SGOT) (test code = 6904888002) 38 U/L 13-40 Lab Interpretation (test code = Normal 82680-3) [facility] AllenLipase [id number] 22:27:00 Test Item Value Reference Range Interpretation Comments LIPASE (test code = 3016891962) 62 U/L 0-220 Lab Interpretation (test code = Normal 15238-6) [facility] AllenaPTT2020-08-07 22:25:00 Test Item Value Reference Range Interpretation Comments APTT Patient (test code = See_Comment [ Automated message] 3173-2) The system [employer] generated this result transmitted ref erence range: 26 - 36 Seconds. The re ference range was not u sed to interpret this result as normal/abnor mal. Lab Interpretation (test Normal code = 05624-4) [facility] AllenProthrombin Time (PT) / [id number] 22:25:00 Test Item Value Reference Range Interpretation [...] tions. Lab Interpretation (test Normal code = 20330-9) [facility] with Dmsplfhiwolp5523-91-52 22:17:00 Test Item Value Reference Range Interpretation [...] RDW-SD (test code = 46.9 fL 38.5-51.6 21828-6) RDW-CV (test code = 14.3 % 12.1-15.4 788-0) PLT (test code = See_Comment [Automated 777-3) message] The sy stem which generated this result transmitted reference range : 150 - 328 10*3/ ?L. The reference r meredith was not used to interpret this result as normal/abnormal . MPV (test code = 10.7 fL 9.8-13 35158-9) NRBC/100 WBC (test See_Comment [Automat ed code = 5707626591) message] The system which generated this result transmitted reference range : 0.0 - 10.0 /100 WBCs. The refer ence range was not u sed to interpret th is result as normal/abnormal . NRBC x10^3 (test code <0.01 See_Comment [Auto mated = 7491742142) message] The s ystem which generated this result transmitted reference range : 10*3/?L. The reference range was not used to interpret this result as normal/abnormal . GRAN MAT (NEUT) % 51.7 % (test code = 770-8) IMM GRAN % (test code 0.40 % = 6066141195) LYMPH % (test code = 32.8 % 736-9) MONO % (test code = 12.4 % 5905-5) EOS % (test code = 2.1 % 713-8) BASO % (test code = 0.6 % 706-2) GRAN MAT x10^3(ANC) 2.76 10*3/uL 1.99-6.95 (test code = 3845381530) IMM GRAN x10^3 (test <0.03 0-0.06 code = 4653495490) LYMPH x10^3 (test code 1.75 10*3/uL 1.09-3.23 = 731-0) MONO x10^3 (test code 0.66 10*3/uL 0.36-1.02 = 742-7) EOS x10^3 (test code = 0.11 10*3/uL 0.06-0.53 711-2) BASO x10^3 (test code 0.03 10*3/uL 0.01-0.09 = 704-7) Lab Interpretation Abnormal (test code = 19971-0) [facility] with Bmyjwconfygn8065-61-18 10:26:00 Test Item Value Reference Range Interpretation Comments WBC (test code = See_Comment L [Automated 9590-2) message] The sy stem which generated this [...] RDW-SD (test code = 46.3 fL 38.5-51.6 58710-1) RDW-CV (test code = 14.2 % 12.1-15.4 788-0) PLT (test code = See_Comment L [Automated 777-3) message] The sy stem which generated this result transmitted reference range : 150 - 328 10*3/ ?L. The reference r meredith was not used to interpret this result as normal/abnormal . MPV (test code = 10.6 fL 9.8-13 23884-3) NRBC/100 WBC (test See_Comment [Automat ed code = 6033155758) message] The system which generated this result transmitted reference range : 0.0 - 10.0 /100 WBCs. The refer ence range was not u sed to interpret th is result as normal/abnormal . NRBC x10^3 (test code <0.01 See_Comment [Auto mated = 3625737031) message] The s ystem which generated this result transmitted reference range : 10*3/?L. The reference range was not used to interpret this result as normal/abnormal . GRAN MAT (NEUT) % 51.3 % (test code = 770-8) IMM GRAN % (test code 0.30 % = 3649601207) LYMPH % (test code = 32.2 % 736-9) MONO % (test code = 12.7 % 5905-5) EOS % (test code = 3.0 % 713-8) BASO % (test code = 0.5 % 706-2) GRAN MAT x10^3(ANC) 1.89 10*3/uL 1.99-6.95 L (test code = 3210923636) IMM GRAN x10^3 (test <0.03 0-0.06 code = [id number]) LYMPH x10^3 (test code 1.19 10*3/uL 1.09-3.23 = 731-0) MONO x10^3 (test code 0.47 10*3/uL 0.36-1.02 = 742-7) EOS x10^3 (test code = 0.11 10*3/uL 0.06-0.53 711-2) BASO x10^3 (test code <0.03 0.01-0.09 = 704-7) Lab Interpretation Abnormal (test code = 97389-7) [facility]:00 Test Item Value Reference Range Interpretation Comments MAGNESIUM (test code = 9438183377) 2.0 mg/dL 1.7-2.4 Lab Interpretation (test code = Normal 26897-2) [facility] Metabolic Panel (NA, K, CL, CO2, GLUCOSE, BUN, CREATININE, CA)2020-03-26 10:17:00 Test Item Value Reference Range Interpretation Comments NA (test code = 136 mmol/L 135-145 [id number]) K (test code = 4.6 mmol/L 3.5-5 Slight 4413567035) hemolysis CL (test code = 109 mmol/L 98-108 H 9580453572) CO2 TOTAL (test code 26 mmol/L 23-31 = 0405818372) AGAP (test code = 2-16 L 2629936573) BUN (test code = 22 mg/dL 7-23 Slight 9117253519) hemolysis GLUCOSE (test code = 82 mg/dL 70-110 6296693530) CREATININE (test code 0.88 mg/dL 0.6-1.25 = 5674121601) CALCIUM (test code = 8.1 mg/dL 8.6-10.6 L 0991225683) eGFR Calculation mL/min/1.73m2 (Non-) (test code = 9274349808) eGFR Calculation mL/min/1.73m2 () (test code = 0349071229) GILBERTO (test code = GILBERTO) Association of [...] tests). Lab Interpretation Abnormal (test code = 80722-5) [facility] Whole [id number] 04:22:00 Test Item Value Reference Range Interpretation Comments LACTIC ACID (test code = 1.52 mmol/L 5482810742) [facility] AllenPhosphorus [id number] 03:37:00 Test Item Value Reference Range Interpretation Comments PHOSPHORUS (test code = 1392975055) 4.6 mg/dL 2.5-5 Lab Interpretation (test code = Normal 78899-8) [facility]MAGNESIUM2020-08-03 03:37:00 Test Item Value Reference Range Interpretation Comments MAGNESIUM (test code = 4713710951) 2.3 mg/dL 1.7-2.4 Lab Interpretation (test code = Normal 27768-8) [facility]COVID[facility] (ID NOW RAPID TESTING)2020-03-26 02:24:00 Test Item Value Reference Range Interpretation Comments SARS-CoV-2 Rapid ID NOW Not Detected Not Detected (test code = 86159-5) GILBERTO (test code = GILBERTO) ID NOW COVID-19 Assay is an isothermal nucleic acid amplification test intended for the qualitative detection of nucleic acid from SARS-CoV-2 viral RNA in nasopharyngeal ([employer]) specimens. It is used under Emergency Use [...] indicated. Lab Interpretation Normal (test code = 10963-8) [facility]CT A[facility]EN PELVIS W [id number] 01:33:06 Redemonstration of severe dilatation of the [...] No focal bowel inflammation or wall thickening.. [facility] Met[facility] (NA, K, CL, CO2, GLUCOSE, BUN, CREATININE, CA)2020-03-26 00:57:00 Test Item Value Reference Range Interpretation Comments NA (test code = 139 mmol/L 135-145 6682909085) K (test code = 4.4 mmol/L 3.5-5 3486887179) CL (test code = 105 mmol/L 98-108 6834705272) CO2 TOTAL (test code = 29 mmol/L 23-31 1757804978) AGAP (test code = 2-16 3768640643) BUN (test code = 28 mg/dL 7-23 H 9928303904) GLUCOSE (test code = 84 mg/dL 70-110 0047355777) CREATININE (test code = 1.19 mg/dL 0.6-1.25 7308450984) CALCIUM (test code = 8.9 mg/dL 8.6-10.6 9578747158) eGFR Calculation mL/min/1.73m2 (Non-) (test code = 5098137591) eGFR Calculation mL/min/1.73m2 () (test code = 8223605462) GILBERTO (test code = GILBERTO) Association of [...] tests). Lab Interpretation Abnormal (test code = 68463-2) [facility] Function Panel (ALB, T.PRO, BILI T, BU/BC, ALT, AST, ALK PHOS)2020-03-26 00:57:00 Test Item Value Reference Range Interpretation Comments TOTAL BILI (test code = 7922459579) 0.2 mg/dL 0.1-1.1 BILI UNCON (test code = 0823231157) 0.0 mg/dL 0.1-1.1 L BILI CONJ (test code = 9659631050) 0.0 mg/dL 0-0.3 T PROTEIN (test code = 4899239066) 6.2 g/dL 6.3-8.2 L ALBUMIN (test code = 5032397277) 4.1 g/dL 3.5-5 ALK PHOS (test code = 7995602953) 56 U/L 34-122 ALTv (test code = 1742-6) 24 U/L 5-50 AST(SGOT) (test code = 0432222797) 28 U/L 13-40 Lab Interpretation (test code = Abnormal 57782-5) [facility] AllenCBC with Locdcpejoecu0964-77-54 00:47:00 Test Item Value Reference Range Interpretation Comments WBC (test code = See_Comment [Automated 8190-2) message] The sy stem which generated this result transmitted reference range : 4.20 - 10.70 10*3/?L. The reference range was not used to interpret this result as normal/abnormal . RBC (test code = See_Comment L [Automated 329-8) message] The sy stem which [...] RDW-SD (test code = 45.9 fL 38.5-51.6 02096-5) RDW-CV (test code = 14.0 % 12.1-15.4 788-0) PLT (test code = See_Comment [Automated 777-3) message] The sy stem which generated this result transmitted reference range : 150 - 328 10*3/ ?L. The reference r meredith was not used to interpret this result as normal/abnormal . MPV (test code = 10.9 fL 9.8-13 75828-7) NRBC/100 WBC (test See_Comment [Automat ed code = 8006534281) message] The system which generated this result transmitted reference range : 0.0 - 10.0 /100 WBCs. The refer ence range was not u sed to interpret th is result as normal/abnormal . NRBC x10^3 (test code <0.01 See_Comment [Auto mated = 4720042605) message] The s ystem which generated this result transmitted reference range : 10*3/?L. The reference range was not used to interpret this result as normal/abnormal . GRAN MAT (NEUT) % 49.8 % (test code = 770-8) IMM GRAN % (test code 0.20 % = 0113811206) LYMPH % (test code = 32.0 % 736-9) MONO % (test code = 14.3 % 5905-5) EOS % (test code = 3.0 % 713-8) BASO % (test code = 0.7 % 706-2) GRAN MAT x10^3(ANC) 2.29 10*3/uL 1.99-6.95 (test code = 9142592488) IMM GRAN x10^3 (test <0.03 0-0.06 code = 8855995239) LYMPH x10^3 (test code 1.47 10*3/uL 1.09-3.23 = 731-0) MONO x10^3 (test code 0.66 10*3/uL 0.36-1.02 = 742-7) EOS x10^3 (test code = 0.14 10*3/uL 0.06-0.53 711-2) BASO x10^3 (test code 0.03 10*3/uL 0.01-0.09 = 704-7) Lab Interpretation Abnormal (test code = 90228-1) [facility] AllenMagnesium Smtua9287-46-09 05:23:00 Test Item Value Reference Range Interpretation Comments MAGNESIUM (test code = 4307350007) 2.1 mg/dL 1.7-2.4 Lab Interpretation (test code = Normal 43030-1) [facility]COVID[facility] (ID NOW RAPID TESTING)2020-03-03 04:45:00 Test Item Value Reference Range Interpretation Comments SARS-CoV-2 Rapid ID NOW Not Detected Not Detected (test code = 68829-5) GILBERTO (test code = GILBERTO) ID NOW COVID-19 Assay is an isothermal nucleic acid amplification test intended for the qualitative detection of nucleic acid from SARS-CoV-2 viral RNA in nasopharyngeal ([employer]) specimens. It is used under Emergency Use [...] indicated. Lab Interpretation Normal (test code = 76492-4) [facility] AllenProthrombin Time / [id number] 04:40:00 Test Item Value Reference Range Interpretation Comments PROTIME PATIENT (test See_Comment [Auto mated message] code = 5964-2) The system [employer] generated this result transmitted ref erence range: 10.1 - 1 2.6 Seconds. The re ference range was not u sed to interpret this result as normal/abnor mal. INR (test code = 6301-6) Nor mal INR <1.1; Warfarin Therap eutic range 2.0 to 3. 0 or 2.5 to 3.5, dep ending upon the indica tions. Lab Interpretation (test Normal code = 39358-4) [facility] AllenaPTT2020-07-11 04:40:00 Test Item Value Reference Range Interpretation Comments APTT Patient (test code = See_Comment [ Automated message] 3173-2) The system [employer] generated this result transmitted ref erence range: 26 - 36 Seconds. The re ference range was not u sed to interpret this result as normal/abnor mal. Lab Interpretation (test Normal code = 79492-2) [facility] AllenPhosphorus Zpvdz5566-97-29 04:31:00 Test Item Value Reference Range Interpretation Comments PHOSPHORUS (test code = 2673580676) 4.0 mg/dL 2.5-5 Lab Interpretation (test code = Normal 51392-8) [facility] AllenXR ABDOMEN ACUTE IZJXPT2613-01-39 02:54:09 Impression: No radiographic evidence for acute cardiopulmonary disease. No radiographic evidence forpneumoperitoneum. Marked gaseous distention of predominantly large bowel loops in the abdomenand pelvis, similar to prior CT of 02/26/2020. On that CT, there was atransition in the distal descending colon, without mass lesion or definitesigmoid volvulus appreciated. RL: 460 AFC: 87461 Indication: Diffuse abdominal pain, obstructionComparison: CT the [...] lesion or definitesigmoid volvulus appreciated. RL: 460AF: [id number] signed by Angeli Carrillo MD, PhD at 03/02/2020 9:54 PM [facility] AllenUrinalysis2020-07-11 01:50:00 Test Item Value Reference Range Interpretation Comments APPEARANCE (test code = Hazy Clear A 5481038864) COLOR (test code = Tahira Yellow A 9286552683) PH (test code = 4.8-8.0 8146504292) SP GRAVITY (test code = 1.003-1.030 0005713558) GLU U QUAL (test code = Normal Normal 7956662109) BLOOD (test code = Negative Negative 7222234135) KETONES (test code = 5 mg/dL Negative A 1781499954) PROTEIN (test code = Negative Negative 2887-8) UROBILIN (test code = 2.0 mg/dL Normal A 4455569896) BILIRUBIN (test code = Negative Negative 5295414555) NITRITE (test code = Negative Negative 6644873897) LEUK ROGER (test code = Negative Negative 0450747478) RBC/HPF (test code = See_Comment [Autom ated message] 0816380270) The system [employer] generated this result transmit dain reference range : 0 - 3 HPF. The refe rence range was not u sed to interpret th is result as normal/abnormal . WBC/HPF (test code = See_Comment [Autom ated message] 6407555157) The system [employer] generated this result transmit dain reference range : 0 - 5 HPF. The refe rence range was not u sed to interpret th is result as normal/abnormal . BACTERIA (test code = Negative Negative 8530775460) MUCOUS (test code = Slight Negative LPF A 2091886703) SQ EPITH (test code = <1 See_Comment [Auto mated message] 1727293594) The system [employer] generated this result transmit dain reference range : <=2 HPF. The refere nce range was not u sed to interpret th is result as normal/abnormal . CA OXALATE (test code = See_Comment H [Au tomated message] 1113367922) The system [employer] generated this result transmit dain reference range : <=1 HPF. The refere nce range was not u sed to interpret th is result as normal/abnormal . SPERM (test code = See_Comment [Automat ed message] 7553573106) The system [employer] generated this result transmit dain reference range : <=1 HPF. The refere nce range was not u sed to interpret th is result as normal/abnormal . Lab Interpretation (test Abnormal code = 32541-0) [facility] Metabolic Panel (NA, K, CL, CO2, GLUCOSE, BUN, CREATININE, CA)2020-03-03 01:44:00 Test Item Value Reference Range Interpretation Comments NA (test code = 140 mmol/L 135-145 8452643973) K (test code = 4.1 mmol/L 3.5-5 9417124292) CL (test code = 106 mmol/L 98-108 0889435928) CO2 TOTAL (test code = 25 mmol/L 23-31 9314427900) AGAP (test code = 2-16 0016463558) BUN (test code = 17 mg/dL 7-23 0356751202) GLUCOSE (test code = 91 mg/dL 70-110 6551298311) CREATININE (test code 1.13 mg/dL 0.6-1.25 = 5088250510) CALCIUM (test code = 9.0 mg/dL 8.6-10.6 4945328025) eGFR Calculation mL/min/1.73m2 (Non-) (test code = 8902263785) eGFR Calculation mL/min/1.73m2 () (test code = 3525022291) GILBERTO (test code = GILBERTO) Association of [...] or abnormalities in imaging tests). [facility] (ALB, T.PRO, BILI T, BU/BC, ALT, AST, ALK PHOS)2020-03-03 01:44:00 Test Item Value Reference Range Interpretation Comments TOTAL BILI (test code = 1193461482) 0.4 mg/dL 0.1-1.1 BILI UNCON (test code = 5104834764) 0.4 mg/dL 0.1-1.1 BILI CONJ (test code = 8937865867) 0.0 mg/dL 0-0.3 T PROTEIN (test code = 8083018572) 6.3 g/dL 6.3-8.2 ALBUMIN (test code = 2668250228) 4.2 g/dL 3.5-5 ALK PHOS (test code = 7672259629) 43 U/L 34-122 ALTv (test code = 1742-6) 20 U/L 5-50 AST(SGOT) (test code = 6752443553) 26 U/L 13-40 Lab Interpretation (test code = Normal 93881-2) [facility] WITH [id number] 01:37:00 Test Item Value Reference Range Interpretation [...] RDW-SD (test code = 45.0 fL 38.5-51.6 12735-7) RDW-CV (test code = 13.7 % 12.1-15.4 788-0) PLT (test code = See_Comment [Automated 777-3) message] The sy stem which generated this result transmitted reference range : 150 - 328 10*3/ ?L. The reference r meredith was not used to interpret this result as normal/abnormal . MPV (test code = 11.3 fL 9.8-13 24294-4) NRBC/100 WBC (test See_Comment [Automat ed code = 9343803288) message] The system which generated this result transmitted reference range : 0.0 - 10.0 /100 WBCs. The refer ence range was not u sed to interpret th is result as normal/abnormal . NRBC x10^3 (test code <0.01 See_Comment [Auto mated = 9229794216) message] The s ystem which generated this result transmitted reference range : 10*3/?L. The reference range was not used to interpret this result as normal/abnormal . GRAN MAT (NEUT) % 53.2 % (test code = 770-8) IMM GRAN % (test code 0.20 % = 6142572306) LYMPH % (test code = 34.5 % 736-9) MONO % (test code = 9.7 % 5905-5) EOS % (test code = 1.8 % 713-8) BASO % (test code = 0.6 % 706-2) GRAN MAT x10^3(ANC) 2.69 10*3/uL 1.99-6.95 (test code = 8598841792) IMM GRAN x10^3 (test <0.03 0-0.06 code = 8561616679) LYMPH x10^3 (test code 1.74 10*3/uL 1.09-3.23 = 731-0) MONO x10^3 (test code 0.49 10*3/uL 0.36-1.02 = 742-7) EOS x10^3 (test code = 0.09 10*3/uL 0.06-0.53 711-2) BASO x10^3 (test code 0.03 10*3/uL 0.01-0.09 = 704-7) Lab Interpretation Abnormal (test code = 20155-3) [facility] AllenLactic Acid Whole Sfqta0901-97-33 01:28:00 Test Item Value Reference Range Interpretation Comments LACTIC ACID (test code = 1.62 mmol/L 2486924610) [facility] AllenDRUG PANEL 2 [id number] 22:13:00 Test Item Value Reference Range Interpretation Comments AMPHET (test code = Negative Negative 3949107492) LOS U (test code = Negative Negative 6387518668) BENZO U (test code = Negative Negative 8969193928) Cocaine Metabolite (test Negative Negative code = 5121413931) METHADONE (test code = Negative Negative 3366683059) OPIATES (test code = Negative Negative 0411020689) PCP (test code = Negative Negative 1318788569) THC (test code = Negative Negative 8760150544) GILBERTO (test code = GILBERTO) Urine Drug [...] testing). Lab Interpretation (test Normal code = 23360-8) [facility] AllenTHYROID STIMULATING [id number] 19:02:00 Test Item Value Reference Range Interpretation Comments TSH (test code = See_Comment [Automated message] 1218252688) The system [employer] generated this result transmitted ref erence range: 0.45 - 4 .70 mIU/L. The refe rence range was not u sed to interpret this result as normal/abnor mal. Lab Interpretation (test Normal code = 47098-4) [facility] [id number] 18:49:00 Test Item Value Reference Range Interpretation Comments FREE T3 (test code = 6129836964) 2.56 pg/mL 2.77-5.27 L Lab Interpretation (test code = Abnormal 25127-9) [facility] [id number] 18:49:00 Test Item Value Reference Range Interpretation Comments FREE T4 (test code = See_Comment [Autom ated message] 0476902337) The system [employer] generated this result transmitted ref erence range: 0.78 - 2 .20 ng/dL:. The ref erence range was not u sed to interpret this result as normal/abnor mal. Lab Interpretation (test Normal code = 96678-4) [facility]CT ABDOMEN PELVIS W [id number] 20:56:47 Persistent marked severe dilatation of the [...] No focal hepatic lesions. Normal contour. Hepatomegaly, pyoireszk08.7 cm, in the craniocaudal dimension. Diffuse hypoattenuation [...] No focal hepatic lesions. Normal contour. Hepatomegaly, nuervhxsg99.7 cm, in the craniocaudal dimension. Diffuse hypoattenuation [...] this study and agree withthe above report. [facility]COVID-19 (ID NOW RAPID TESTING)2020-02-26 07:03:00 Test Item Value Reference Range Interpretation Comments SARS-CoV-2 Rapid ID NOW Not Detected Not Detected (test code = 55734-7) GILBERTO (test code = GILBERTO) ID NOW COVID-19 Assay is an isothermal nucleic acid amplification test intended for the qualitative detection of nucleic acid from SARS-CoV-2 viral RNA in nasopharyngeal ([employer]) specimens. It is used under Emergency Use [...] indicated. Lab Interpretation Normal (test code = 83061-9) [facility]XR ABDOMEN ACUTE [id number] 05:00:33 Impression: No radiographic evidence for acute cardiopulmonary disease. Marked gaseous distention ofthe colon, with a relative paucity of gas inthe distal sigmoid colon and rectum. This may reflect pseudoobstruction,but mechanical distal colonic obstruction cannot be excluded. RL: 460 AFC: 06320 Ordering physician: SABI CORTESUIndication: Abdominal distention Comparison: [...] distal colonic obstruction cannot be excluded.RL: 460AFC: 57632Hqxinnbrwnxadw signed by Angeli Carrillo MD, PhD at 02/26/2020 12:00 [facility] Metabolic Panel (NA, K, CL, CO2, GLUCOSE, BUN, CREATININE, CA)2020-02-26 04:03:00 Test Item Value Reference Range Interpretation Comments NA (test code = 142 mmol/L 135-145 8907023625) K (test code = 4.1 mmol/L 3.5-5 7867732874) CL (test code = 107 mmol/L 98-108 0989508617) CO2 TOTAL (test code = 29 mmol/L 23-31 1104284202) AGAP (test code = 2-16 5836076369) BUN (test code = 13 mg/dL 7-23 4016590030) GLUCOSE (test code = 82 mg/dL 70-110 1072521508) CREATININE (test code 1.14 mg/dL 0.6-1.25 = 3421485611) CALCIUM (test code = 9.5 mg/dL 8.6-10.6 8637702573) eGFR Calculation mL/min/1.73m2 (Non-) (test code = 7888255451) eGFR Calculation mL/min/1.73m2 () (test code = 5277287268) GILBERTO (test code = GILBERTO) Association of [...] or abnormalities in imaging tests). [facility] Function Panel (ALB, T.PRO, BILI T, BU/BC, ALT, AST, ALK PHOS)2020-02-26 04:03:00 Test Item Value Reference Range Interpretation Comments TOTAL BILI (test code = 2767706386) 0.5 mg/dL 0.1-1.1 BILI UNCON (test code = 7456430284) 0.5 mg/dL 0.1-1.1 BILI CONJ (test code = 2124646713) 0.0 mg/dL 0-0.3 T PROTEIN (test code = 4280947359) 6.2 g/dL 6.3-8.2 L ALBUMIN (test code = 3760189512) 4.2 g/dL 3.5-5 ALK PHOS (test code = 5177878536) 40 U/L 34-122 ALTv (test code = 1742-6) 20 U/L 5-50 AST(SGOT) (test code = 5866552332) 26 U/L 13-40 Lab Interpretation (test code = Abnormal 09104-8) [facility] AllenLipase [id number] 04:03:00 Test Item Value Reference Range Interpretation Comments LIPASE (test code = 7952229287) 57 U/L 0-220 Lab Interpretation (test code = Normal 26964-8) [facility] AllenLactic Acid Whole [id number] 03:52:00 Test Item Value Reference Range Interpretation Comments LACTIC ACID (test code = 1.66 mmol/L 0.5-2.2 8188103688) [facility] AllenCBC WITH [id number] 03:47:00 Test Item Value Reference Range Interpretation [...] RDW-SD (test code = 45.1 fL 38.5-51.6 33605-1) RDW-CV (test code = 13.7 % 12.1-15.4 788-0) PLT (test code = See_Comment [Automated 777-3) message] The sy stem which generated this result transmitted reference range : 150 - 328 10*3/ ?L. The reference r meredith was not used to interpret this result as normal/abnormal . MPV (test code = 10.7 fL 9.8-13 17850-8) NRBC/100 WBC (test See_Comment [Automat ed code = 1540994197) message] The system which generated this result transmitted reference range : 0.0 - 10.0 /100 WBCs. The refer ence range was not u sed to interpret th is result as normal/abnormal . NRBC x10^3 (test code <0.01 See_Comment [Auto mated = 8254707655) message] The s ystem which generated this result transmitted reference range : 10*3/?L. The reference range was not used to interpret this result as normal/abnormal . GRAN MAT (NEUT) % 63.1 % (test code = 770-8) IMM GRAN % (test code 0.40 % = 4210353364) LYMPH % (test code = 25.1 % 736-9) MONO % (test code = 9.9 % 5905-5) EOS % (test code = 1.1 % 713-8) BASO % (test code = 0.4 % 706-2) GRAN MAT x10^3(ANC) 3.52 10*3/uL 1.99-6.95 (test code = 4490140191) IMM GRAN x10^3 (test <0.03 0-0.06 code = 2854805005) LYMPH x10^3 (test code 1.40 10*3/uL 1.09-3.23 = 731-0) MONO x10^3 (test code 0.55 10*3/uL 0.36-1.02 = 742-7) EOS x10^3 (test code = 0.06 10*3/uL 0.06-0.53 711-2) BASO x10^3 (test code <0.03 0.01-0.09 = 704-7) Lab Interpretation Abnormal (test code = 02338-5) [facility] 1 [id number] 12:53:00 Name: DORA MCNEILL [facility] : 1970 Age/S: 50 / M [address] [address] [place] [address] [place] Unit #: [id number] Loc: [place] [address] 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 Acct: [id number] Dis Date: Status: ADM IN PHONE #: [phone] Exam Date: 02/25/2020 1032 FAX #: Reason: abdominal distention EXAMS: CPT: [id number] XR ABDOMEN 1 V 02738 Fluoro Time: DAP (Gy m2): Air Kerma [...] Perea MD PAGE1 Signed Report Name: DORA MCNEILL [facility] : 1970 Age/S: 50 / M [address] [address] [place] Unit #: [id number] Loc: [place] [address] 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 Acct: [id number] Dis Date: Status: ADM IN PHONE #: [phone] Exam Date: 02/25/2020 1036 FAX #: Reason: abdominal distention EXAMS:CPT: [id number] XR ABDOMEN 1 V 76998 Fluoro Time: DAP (Gy m2): Air Kerma (mGy): <Continued> Technologist: Nichole Dill, RT(R) Trnscb Date/Time: 02/25/2020 (7253) [email or web address] Orig Print D/T: S: 02/25/2020 (9656) PAGE 2 Signed Report COMPREHENSIVE METABOLIC [id number] 08:20:00 Test Item Value Reference Range Interpretation [...] 50-136 L TOTAL (test code = ALKP) [id number] 08:20:00 Test Item Value Reference Range Interpretation Comments MAGNESIUM (test code = MAG) 2.2 MG/DL 1.8-2.4 N THYROID STIMULATING [id number] 08:20:00 Test Item Value Reference Range Interpretation Comments THYROID STIMULATING HORMONE 5.430 mcIU/ML 0.340-4.820 H (test code = TSH) CBC W/AUTO [id number] 07:55:00 Test Item Value Reference Range Interpretation [...] N NRBC#) UA RFLX MICR CULT IF [id number] 12:29:00 Test Item Value Reference Range Interpretation [...] culture: Suprapubic PainUA RFLX MICR CULT IF [id number] 12:29:00 Test Item Value Reference Range Interpretation [...] for culture: Suprapubic PainCOVID 19 Asymptomatic IH [id number] 22:09:00 Test Item Value Reference Range Interpretation [...] tent with COVID-19. - CT ABD PELVIS W/AYFQ6323-12-08 21:10:00 Name: DORA MCNEILL [place] : 1970 Age/S: 50 / M [id number] [address] [place] [address] [place] Unit #: [id number] Loc: [place] [address] Phys: Evin Castellanos MD Acct: [id number] Dis Date: Status: KISHOR ZIEGLER #: [phone] Exam Date: 02/23/20202047 FAX #: Reason: diffuse abdomen pain and distentionEXAMS: CPT: [id number] CT ABD PELVIS W/CONT 03737 EXAM: - CT ABD PELVIS W/CONT LOCATION: H61 CLINICAL HISTORY/INDICATION: diffuse abdomen pain and distention COMPARISON: Multiple prior KUBs are intactto 01/06/2020, most recent dated 02/19/2020. Abdominal CT/. [...] PAGE 1 Signed Report (CONTINUED) Name: ADINA MCNEILL [place] : 1970 Age/S: 50 / M [address] [address] [place] [address] [place] Unit #: [id number] Loc: [place] [address] Phys: Evin Castellanos MD Acct: [id number] Dis Date: Status: REG ER PHONE #: [phone] Exam Date: 02/23/20202047 FAX #: Reason: diffuse abdomen pain and distention EXAMS: CPT: [id number] CT ABD PELVIS W/CONT 47358 <Continued> CT. No bowel wall thickening or [...] by: Marybel José M.D. CC: Susana Meza [employer]; Carl Luevano MD Technologist:Rudy Zuniga, RT(R)(CT)(MRI) CTDI: DLP: Trnscb Date/Time: 02/23/2020 (2109) t.SDR.TH15 Orig Print D/T: S: 02/23/2020 (2112) PAGE 2 Signed Report- XR CHEST 1 [id number] 21:03:00 Name: DORA MCNEILL [facility] : 1970 Age/S: 50 / M [address] [address] [place] Unit #: [id number] Loc: [place] [address] Phys: Evin Castellanos MD Acct: [id number] Dis Date: Status: REG ERPHONE #: [phone] Exam Date: 02/23/20202055 FAX #: Reason: Code Sepsis EXAMS: CPT: [id number] XR CHEST 1 V 21977 Fluoro Time: DAP (Gy m2): Air Kerma [...] by: Monica Quijano MD CC: Susana Meza [employer]; Carl Luevano MD PAGE 1 Signed [facility] 1970 Age/S: 50 / M [address] [address] [place] Unit #: [id number] Loc: [place] [address] Phys: Evin Castellanos MD Acct: [id number] Dis Date: Status: REG ER PHONE #: [phone] Exam Date: 02/23/20202055 FAX #: Reason: Code Sepsis EXAMS: CPT: [id number] XR CHEST 1 V 14587 Fluoro Time: DAP (Gy m2): Air Kerma (mGy): <Continued> Technologist: Rudy Zuniga, RT(R)(CT)(MRI) Trnscb Date/Time: 02/23/2020 (2102) [email or web address] Orig Print D/T: S: 02/23/2020 (2106) PAGE [...] 8.5-10.1 N Completed by Nursing: NOHEPATIC FUNCTION [id number] 20:02:00 Test Item Value Reference Range Interpretation [...] N code = ALKP) Completed by Nursing: [id number] 20:02:00 Test Item Value Reference Range Interpretation Comments LIPASE (test code = LIP) 97 Unit/L 114-286 L Completed by Nursing: VMLAEYLULP-[id number] 20:02:00 Test Item Value Reference Range Interpretation [...] one another as nume rical results may ori yby method. Completed by Nursing: NOLACTIC [id number] 19:59:00 Test Item Value Reference Range Interpretation Comments LACTIC ACID (test code = LACT) 1.2 mmol/L 0.4-2.0 N CBC W/AUTO [id number] 19:46:00 Test Item Value Reference Range Interpretation [...] CRITERIA = MDIFF) - XR ABDOMEN 2 [id number] 06:22:00 Name: DORA MCNEILL [place] : 1970 Age/S: 50 / M [address] [address] [place] Unit #: [id number] Loc: [place] [address] Phys: Leonidas Robertson MD Acct: [id number] Dis Date: Status: ADM INPHONE #: [phone] Exam Date: 02/19/2020439 FAX #: Reason: megacolon EXAMS: CPT: [id number] XR ABDOMEN 2 V 13765 Fluoro Time: DAP (Gy m2): Air Kerma [...] MD PAGE 1 Signed Report Name: DORA MCNEILL [place] : 1970 Age/S: 50 / M [address] Unit #: [id number] Loc: [place] [address] Phys: Leonidas Robertson MD Acct: [id number] Dis Date: Status: ADM IN PHONE #: [phone] Exam Date: 02/19/2020 044 FAX #: Reason: megacolon EXAMS:CPT: [id number] XR ABDOMEN 2 V 14389 Fluoro Time: DAP (Gy m2): Air Kerma (mGy): <Continued> Technologist: Carrie Barnett, RT(R)(CT) Trnscb Date/Time: 02/19/2020 (621) [email or web address] Orig Print D/T:S: 02/19/2020 (97) PAGE 2 Signed ReportBASIC METABOLIC [id number] 05:52:00 Test Item Value Reference Range Interpretation [...] CA) 8.5 MG/DL 8.5-10.1 N CBC W/AUTO [id number] 05:40:00 Test Item Value Reference Range Interpretation [...] NO DIFF/SCN CRITERIA = MDIFF) BASIC METABOLIC [id number] 06:52:00 Test Item Value Reference Range Interpretation [...] CA) 8.3 MG/DL 8.5-10.1 L CBC W/AUTO [id number] 06:39:00 Test Item Value Reference Range Interpretation [...] DIFF/SCN CRITERIA = MDIFF) Coronavirus 2019 nCoV [id number] 05:35:00 Test Item Value Reference Range Interpretation [...] NA (test code = 139 mmol/L 135-145 9272919983) K (test code = 4.3 mmol/L 3.5-5 0200686287) CL (test code = 105 mmol/L 98-108 9426307358) CO2 TOTAL (test code = 30 mmol/L 23-31 0451700593) AGAP (test code = 2-16 0520833070) BUN (test code = 6 mg/dL 7-23 L 0772416729) GLUCOSE (test code = 94 mg/dL 70-110 3897096327) CREATININE (test code = 1.07 mg/dL 0.6-1.25 8532195740) CALCIUM (test code = 9.3 mg/dL 8.6-10.6 9986079797) eGFR Calculation mL/min/1.73m2 (Non-) (test code = 3600551792) eGFR Calculation mL/min/1.73m2 () (test code = 7112669503) GILBERTO (test code = GILBERTO) Association of [...] tests). Lab Interpretation Abnormal (test code = 97366-4) [facility] 16:58:00 Test Item Value Reference Range Interpretation Comments MAGNESIUM (test code = 9990321259) 2.0 mg/dL 1.7-2.4 Lab Interpretation (test code = Normal 43493-8) [facility] [id number] 17:02:411. Interval worsening of air distended loops [...] with cecum measuring up to 15 cm. [facility] WITH [id number] 07:20:00 Test Item Value Reference Range Interpretation Comments WBC (test code = See_Comment L [Automated 9090-2) message] The sy stem which generated this result transmitted reference range : 4.20 - 10.70 10*3/?L. The reference range was not used to interpret this result as normal/abnormal . RBC (test code = See_Comment [Automated 739-8) message] The sy stem which [...] RDW-SD (test code = 46.5 fL 38.5-51.6 31245-8) RDW-CV (test code = 13.9 % 12.1-15.4 788-0) PLT (test code = See_Comment L [Automated 777-3) message] The sy stem which generated this result transmitted reference range : 150 - 328 10*3/ ?L. The reference r meredith was not used to interpret this result as normal/abnormal . MPV (test code = 10.7 fL 9.8-13 21626-7) NRBC/100 WBC (test See_Comment [Automat ed code = 7812987861) message] The system which generated this result transmitted reference range : 0.0 - 10.0 /100 WBCs. The refer ence range was not u sed to interpret th is result as normal/abnormal . NRBC x10^3 (test code <0.01 See_Comment [Auto mated = 2208250459) message] The s ystem which generated this result transmitted reference range : 10*3/?L. The reference range was not used to interpret this result as normal/abnormal . GRAN MAT (NEUT) % 48.6 % (test code = 770-8) IMM GRAN % (test code 0.20 % = 2754464871) LYMPH % (test code = 39.6 % 736-9) MONO % (test code = 8.4 % 5905-5) EOS % (test code = 2.7 % 713-8) BASO % (test code = 0.5 % 706-2) GRAN MAT x10^3(ANC) 1.96 10*3/uL 1.99-6.95 L (test code = 6789350493) IMM GRAN x10^3 (test <0.03 0-0.06 code = 9407083094) LYMPH x10^3 (test code 1.60 10*3/uL 1.09-3.23 = 731-0) MONO x10^3 (test code 0.34 10*3/uL 0.36-1.02 L = 742-7) EOS x10^3 (test code = 0.11 10*3/uL 0.06-0.53 711-2) BASO x10^3 (test code <0.03 0.01-0.09 = 704-7) Lab Interpretation Abnormal (test code = 74070-2) [facility] (NA, K, CL, CO2, GLUCOSE, BUN, CREATININE, CA)2020-01-31 06:32:00 Test Item Value Reference Range Interpretation Comments NA (test code = 138 mmol/L 135-145 1384658498) K (test code = 4.2 mmol/L 3.5-5 Slight 9892402143) hemolysis CL (test code = 108 mmol/L 98-108 2329681966) CO2 TOTAL (test code 22 mmol/L 23-31 L = 0887658999) AGAP (test code = 2-16 8716587758) BUN (test code = 7 mg/dL 7-23 Slight 3919338627) hemolysis GLUCOSE (test code = 92 mg/dL 70-110 4914881289) CREATININE (test code 1.02 mg/dL 0.6-1.25 = 2866450576) CALCIUM (test code = 8.9 mg/dL 8.6-10.6 9490551831) eGFR Calculation mL/min/1.73m2 (Non-) (test code = 9110603531) eGFR Calculation mL/min/1.73m2 () (test code = 3702794437) GILBERTO (test code = GILBERTO) Association of [...] tests). Lab Interpretation Abnormal (test code = 03265-8) [facility] WITH [id number] 11:00:00 Test Item Value Reference Range Interpretation [...] RDW-SD (test code = 48.7 fL 38.5-51.6 47034-1) RDW-CV (test code = 14.4 % 12.1-15.4 788-0) PLT (test code = See_Comment L [Automated 777-3) message] The sy stem which generated this result transmitted reference range : 150 - 328 10*3/ ?L. The reference r meredith was not used to interpret this result as normal/abnormal . MPV (test code = 10.7 fL 9.8-13 35527-8) IPF % (test code = 5.1 % 1.2-10.7 Platelet count 3143941280) measured by fluorescence method. NRBC/100 WBC (test See_Comment [Automat ed code = 0416435228) message] The system which generated this result transmitted reference range : 0.0 - 10.0 /100 WBCs. The refer ence range was not u sed to interpret th is result as normal/abnormal . NRBC x10^3 (test code <0.01 See_Comment [Auto mated = 8277575192) message] The s ystem which generated this result transmitted reference range : 10*3/?L. The reference range was not used to interpret this result as normal/abnormal . SEG % (test code = 53 % 33-76 75377-3) BAND % (test code = 1 % 0-1 06335-1) LYMPH % (test code = 39 % 14-54 64307-4) MONO % (test code = 4 % 0-4 42826-8) EOS % (test code = 3 % 0-3 95638-4) ANC (test code = 1.93 10*3/uL 1.99-6.95 L 7923409207) Lab Interpretation Abnormal (test code = 99042-9) [facility] Metabolic Panel (NA, K, CL, CO2, GLUCOSE, BUN, CREATININE, CA)2020-01-29 10:23:00 Test Item Value Reference Range Interpretation Comments NA (test code = 138 mmol/L 135-145 2283663835) K (test code = 4.0 mmol/L 3.5-5 8693273376) CL (test code = 109 mmol/L 98-108 H 8083192959) CO2 TOTAL (test code = 27 mmol/L 23-31 9694933136) AGAP (test code = 2-16 9697595042) BUN (test code = 16 mg/dL 7-23 4977544471) GLUCOSE (test code = 81 mg/dL 70-110 5729454630) CREATININE (test code = 1.14 mg/dL 0.6-1.25 6072832287) CALCIUM (test code = 8.6 mg/dL 8.6-10.6 3008977404) eGFR Calculation mL/min/1.73m2 (Non-) (test code = 3056435545) eGFR Calculation mL/min/1.73m2 () (test code = 2240100054) GILBERTO (test code = GILBERTO) Association of [...] tests). Lab Interpretation Abnormal (test code = 42919-0) [facility] [id number] 04:27:00 Test Item Value Reference Range Interpretation Comments SARS-CoV-2 Rapid ID NOW Not Detected Not Detected (test code = 62744-1) GILBERTO (test code = GILBERTO) ID NOW COVID-19 Assay is an isothermal nucleic acid amplification test intended for the qualitative detection of nucleic acid from SARS-CoV-2 viral RNA in nasopharyngeal ([employer]) specimens. It is used under Emergency Use [...] indicated. Lab Interpretation Normal (test code = 75009-0) [facility] AllenLactic Acid Whole [id number] 04:10:00 Test Item Value Reference Range Interpretation Comments LACTIC ACID (test code = 1.74 mmol/L 0.5-2.2 7308802441) [facility]OVID[facility] (ID NOW RAPID TESTING)2020-01-29 02:17:00 Test Item Value Reference Range Interpretation Comments SARS-CoV-2 Rapid ID NOW Not Detected Not Detected (test code = 39716-8) GILBERTO (test code = GILBERTO) ID NOW COVID-19 Assay is an isothermal nucleic acid amplification test intended for the qualitative detection of nucleic acid from SARS-CoV-2 viral RNA in nasopharyngeal ([employer]) specimens. It is used under Emergency Use [...] indicated. Lab Interpretation Normal (test code = 89070-2) [facility] AllenUrinalysis2020-06-07 02:14:00 Test Item Value Reference Range Interpretation Comments APPEARANCE (test code = Clear Clear 2419518347) COLOR (test code = Dark Yellow Yellow A 1405643306) PH (test code = 4.8-8.0 2811458199) SP GRAVITY (test code = 1.003-1.030 H 4137340985) GLU U QUAL (test code = Normal Normal 9642338695) BLOOD (test code = 1+ Negative A 6401360850) KETONES (test code = 5 mg/dL Negative A 6242732278) PROTEIN (test code = Negative Negative 2887-8) UROBILIN (test code = Normal Normal 4279528287) BILIRUBIN (test code = Negative Negative 4870851059) NITRITE (test code = Negative Negative 8037599523) LEUK ROGER (test code = Negative Negative 7757557198) RBC/HPF (test code = See_Comment H [Autom ated 9212120223) message] The sy stem which generated this result transmitted reference range : 0 - 3 HPF. The reference range was not used to interpret this result as normal/abnormal . WBC/HPF (test code = See_Comment [Autom ated 3225782596) message] The sy stem which generated this result transmitted reference range : 0 - 5 HPF. The reference range was not used to interpret this result as normal/abnormal . BACTERIA (test code = Moderate Negative A 3625548990) MUCOUS (test code = Slight Negative LPF A 3204950481) AMORPHOUS (test code = Rare Rare HPF 3438489489) SQ EPITH (test code = <1 See_Comment [Auto mated 3564017169) message] The sy stem which generated this result transmitted reference range : <=2 HPF. The reference range was not used to interpret this result as normal/abnormal . CA OXALATE (test code = See_Comment H [Au tomated 5539108383) message] The sy stem which generated this result transmitted reference range : <=1 HPF. The reference range was not used to interpret this result as normal/abnormal . HYAL CAST (test code = See_Comment H [Aut omated 7940240299) message] The sy stem which generated this result transmitted reference range : <=2 LPF. The reference range was not used to interpret this result as normal/abnormal . ASCORBIC ACID (test Negative code = 2278092543) Lab Interpretation Abnormal (test code = 07688-2) [facility]CT A[facility]EN PELVIS W [id number] 00:25:08Persistent marked and severe dilatation of the [...] is essentially stable compared to prior examination. [facility] Metabolic Panel (NA, K, CL, CO2, GLUCOSE, BUN, CREATININE, CA)2020-01-28 23:38:00 Test Item Value Reference Range Interpretation Comments NA (test code = 143 mmol/L 135-145 4363471616) K (test code = 4.2 mmol/L 3.5-5 1695591804) CL (test code = 111 mmol/L 98-108 H 7006403289) CO2 TOTAL (test code = 28 mmol/L 23-31 5233598004) AGAP (test code = 2-16 9040095160) BUN (test code = 15 mg/dL 7-23 1384722912) GLUCOSE (test code = 68 mg/dL 70-110 L 7418529723) CREATININE (test code = 1.32 mg/dL 0.6-1.25 H 8769535948) CALCIUM (test code = 9.0 mg/dL 8.6-10.6 4799510038) eGFR Calculation mL/min/1.73m2 (Non-) (test code = 7253826867) eGFR Calculation mL/min/1.73m2 () (test code = 1140635950) GILBERTO (test code = GILBERTO) Association of [...] tests). Lab Interpretation Abnormal (test code = 41419-3) [facility] Allen[facility]atic Function Panel (ALB, T.PRO, BILI T, BU/BC, ALT, AST, ALK PHOS)2020-01-28 23:38:00 Test Item Value Reference Range Interpretation Comments TOTAL BILI (test code = 9585755487) 0.6 mg/dL 0.1-1.1 BILI UNCON (test code = 3315770336) 0.6 mg/dL 0.1-1.1 BILI CONJ (test code = 2101711863) 0.0 mg/dL 0-0.3 T PROTEIN (test code = 3284939670) 5.7 g/dL 6.3-8.2 L ALBUMIN (test code = 0381946366) 3.8 g/dL 3.5-5 ALK PHOS (test code = 9258947466) 37 U/L 34-122 ALTv (test code = 1742-6) 23 U/L 5-50 AST(SGOT) (test code = 1943068135) 25 U/L 13-40 Lab Interpretation (test code = Abnormal 39477-2) [facility] AllenLipase [id number] 23:38:00 Test Item Value Reference Range Interpretation Comments LIPASE (test code = 9085433694) 62 U/L 0-220 Lab Interpretation (test code = Normal 67599-5) [facility] AllenCB WITH [id number] 23:29:00 Test Item Value Reference Range Interpretation [...] RDW-SD (test code = 47.5 fL 38.5-51.6 74297-9) RDW-CV (test code = 14.3 % 12.1-15.4 788-0) PLT (test code = See_Comment [Automated 777-3) message] The sy stem which generated this result transmitted reference range : 150 - 328 10*3/ ?L. The reference r meredith was not used to interpret this result as normal/abnormal . MPV (test code = 10.6 fL 9.8-13 11560-7) NRBC/100 WBC (test See_Comment [Automat ed code = 9086405053) message] The system which generated this result transmitted reference range : 0.0 - 10.0 /100 WBCs. The refer ence range was not u sed to interpret th is result as normal/abnormal . NRBC x10^3 (test code <0.01 See_Comment [Auto mated = 6433193265) message] The s ystem which generated this result transmitted reference range : 10*3/?L. The reference range was not used to interpret this result as normal/abnormal . GRAN MAT (NEUT) % 50.1 % (test code = 770-8) IMM GRAN % (test code 0.20 % = 2481008043) LYMPH % (test code = 34.7 % 736-9) MONO % (test code = 12.5 % 5905-5) EOS % (test code = 1.8 % 713-8) BASO % (test code = 0.7 % 706-2) GRAN MAT x10^3(ANC) 2.28 10*3/uL 1.99-6.95 (test code = 2200453337) IMM GRAN x10^3 (test <0.03 0-0.06 code = 4247733154) LYMPH x10^3 (test code 1.58 10*3/uL 1.09-3.23 = 731-0) MONO x10^3 (test code 0.57 10*3/uL 0.36-1.02 = 742-7) EOS x10^3 (test code = 0.08 10*3/uL 0.06-0.53 711-2) BASO x10^3 (test code 0.03 10*3/uL 0.01-0.09 = 704-7) Lab Interpretation Abnormal (test code = 84534-2) [facility] METABOLIC PANEL (NA, K, CL, CO2, GLUCOSE, BUN, CREATININE, CA)2020-01-26 18:34:00 Test Item Value Reference Range Interpretation Comments NA (test code = 138 mmol/L 135-145 2494445785) K (test code = 3.7 mmol/L 3.5-5 7000982597) CL (test code = 108 mmol/L 98-108 3658977398) CO2 TOTAL (test code = 25 mmol/L 23-31 5875407534) AGAP (test code = 2-16 2208651349) BUN (test code = 9 mg/dL 7-23 7432320289) GLUCOSE (test code = 107 mg/dL 70-110 5899257626) CREATININE (test code 0.96 mg/dL 0.6-1.25 = 5776420524) CALCIUM (test code = 8.7 mg/dL 8.6-10.6 1240841989) eGFR Calculation mL/min/1.73m2 (Non-) (test code = 7000401270) eGFR Calculation mL/min/1.73m2 () (test code = 9022755692) GILBERTO (test code = GILBERTO) Association of [...] or abnormalities in imaging tests). [facility] AllenMagnesium Ujnny1685-69-38 08:33:00 Test Item Value Reference Range Interpretation Comments MAGNESIUM (test code = 1.9 mg/dL 1.7-2.4 Sligh t hemolysis 6789022950) Lab Interpretation (test Normal code = 81107-4) [facility] AllenXR [id number] 06:18:53 Redemonstration of marked gaseous distention of the transverse anddescending colon. RL: 460 AFC: 30135 Ordering physician: HELENE GRIFFIN INDICATION: Abdominal pain [...] distention of the transverse anddescending colon.RL: 460AFC: 77478Ymqdwcaxumltjq signed by Angeli Carrillo MD, PhD at 01/26/2020 1:18 AMTexas [facility] Phosphorus Fueum9893-39-50 10:11:00 Test Item Value Reference Range Interpretation Comments PHOSPHORUS (test code = 0895849970) 3.9 mg/dL 2.5-5 Lab Interpretation (test code = Normal 47649-8) [facility] AllenCOVID-19 (ID NOW RAPID TESTING)2020-01-25 05:12:00 Test Item Value Reference Range Interpretation Comments SARS-CoV-2 Rapid ID NOW Not Detected Not Detected (test code = 02942-0) GILBERTO (test code = GILBERTO) ID NOW COVID-19 Assay is an isothermal nucleic acid amplification test intended for the qualitative detection of nucleic acid from SARS-CoV-2 viral RNA in nasopharyngeal ([employer]) specimens. It is used under Emergency Use [...] indicated. Lab Interpretation Normal (test code = 77376-2) [facility] AllenLactic Acid Whole [id number] 04:34:00 Test Item Value Reference Range Interpretation Comments LACTIC ACID (test code = 0.89 mmol/L 0.5-2.2 9518514955) [facility]CT ABDOMEN PELVIS W [id number] 02:47:02Impression: Marked distention and dilatation of the [...] bowel as well. Rectal tubedecompression may be considered.[facility] AllenUrinalysis2020-06-03 01:51:00 Test Item Value Reference Range Interpretation Comments APPEARANCE (test code = Hazy Clear A 7887422664) COLOR (test code = Yellow Yellow 5840733380) PH (test code = 4.8-8.0 7269578047) SP GRAVITY (test code = 1.003-1.030 0194190621) GLU U QUAL (test code = Normal Normal 8359840101) BLOOD (test code = Negative Negative 6829996409) KETONES (test code = Negative Negative 0093978244) PROTEIN (test code = Negative Negative 2887-8) UROBILIN (test code = Normal Normal 2671930165) BILIRUBIN (test code = Negative Negative 8179804872) NITRITE (test code = Negative Negative 3005389269) LEUK ROGER (test code = Negative Negative 9907248061) RBC/HPF (test code = See_Comment H [Autom ated message] 6309111839) The system [employer] generated this result transmitted ref erence range: 0 - 3 HP F. The reference range was not used to int erpret this result as normal/abnormal . WBC/HPF (test code = See_Comment [Autom ated message] 3329022560) The system [employer] generated this result transmitted ref erence range: 0 - 5 HP F. The reference range was not used to int erpret this result as normal/abnormal . BACTERIA (test code = Negative Negative 6409565814) SQ EPITH (test code = <1 See_Comment [Auto mated message] 4331880705) The system [employer] generated this result transmitted ref erence range: <=2 HPF. The reference range was not used to int erpret this result as normal/abnormal . CA OXALATE (test code = See_Comment H [Au tomated message] 2952211280) The system [employer] generated this result transmitted ref erence range: <=1 HPF. The reference range was not used to int erpret this result as normal/abnormal . Lab Interpretation (test Abnormal code = 73461-1) [facility] Metabolic Panel (NA, K, CL, CO2, GLUCOSE, BUN, CREATININE, CA)2020-01-25 01:01:00 Test Item Value Reference Range Interpretation Comments NA (test code = 139 mmol/L 135-145 1859773075) K (test code = 4.6 mmol/L 3.5-5 Slight hemoly sis 4568792395) CL (test code = 107 mmol/L 98-108 0363075704) CO2 TOTAL (test 26 mmol/L 23-31 code = 7453508654) AGAP (test code = 2-16 8490987377) BUN (test code = 23 mg/dL 7-23 Slight hemo lysis 4243601777) GLUCOSE (test code 94 mg/dL 70-110 = 0178250248) CREATININE (test 1.13 mg/dL 0.6-1.25 code = 0311877603) CALCIUM (test code 8.9 mg/dL 8.6-10.6 = 8618652811) eGFR Calculation mL/min/1.73m2 (Non-) (test code = 7097802356) eGFR Calculation mL/min/1.73m2 () (test code = 9957442254) GILBERTO (test code = Association of GILBERTO) [...] or abnormalities in imaging tests). [facility] Function Panel (ALB, T.PRO, BILI T, BU/BC, ALT, AST, ALK PHOS)2020-01-25 01:01:00 Test Item Value Reference Range Interpretation Comments TOTAL BILI (test code = 0800698515) 0.7 mg/dL 0.1-1.1 BILI UNCON (test code = 3108711055) 0.6 mg/dL 0.1-1.1 BILI CONJ (test code = 2745453456) 0.0 mg/dL 0-0.3 T PROTEIN (test code = 0219553144) 6.2 g/dL 6.3-8.2 L ALBUMIN (test code = 8621160181) 4.1 g/dL 3.5-5 ALK PHOS (test code = 0813489011) 46 U/L 34-122 ALTv (test code = 1742-6) 27 U/L 5-50 AST(SGOT) (test code = 8238486171) 31 U/L 13-40 Lab Interpretation (test code = Abnormal 00065-4) [facility] AllenLip[facility] Shdoz2841-49-64 01:01:00 Test Item Value Reference Range Interpretation Comments LIPASE (test code = 8644862364) 246 U/L 0-220 H Lab Interpretation (test code = Abnormal 32121-0) [facility] AllenCBC WITH [id number] 00:49:00 Test Item Value Reference Range Interpretation [...] RDW-SD (test code = 46.8 fL 38.5-51.6 59368-0) RDW-CV (test code = 14.2 % 12.1-15.4 788-0) PLT (test code = See_Comment [Automated 777-3) message] The sy stem which generated this result transmitted reference range : 150 - 328 10*3/ ?L. The reference r meredith was not used to interpret this result as normal/abnormal . MPV (test code = 10.7 fL 9.8-13 12900-5) NRBC/100 WBC (test See_Comment [Automat ed code = 1051269669) message] The system which generated this result transmitted reference range : 0.0 - 10.0 /100 WBCs. The refer ence range was not u sed to interpret th is result as normal/abnormal . NRBC x10^3 (test code <0.01 See_Comment [Auto mated = 9029583619) message] The s ystem which generated this result transmitted reference range : 10*3/?L. The reference range was not used to interpret this result as normal/abnormal . GRAN MAT (NEUT) % 56.9 % (test code = 770-8) IMM GRAN % (test code 0.20 % = 6894440428) LYMPH % (test code = 31.2 % 736-9) MONO % (test code = 9.7 % 5905-5) EOS % (test code = 1.6 % 713-8) BASO % (test code = 0.4 % 706-2) GRAN MAT x10^3(ANC) 2.86 10*3/uL 1.99-6.95 (test code = 0242833022) IMM GRAN x10^3 (test <0.03 0-0.06 code = 1472907590) LYMPH x10^3 (test code 1.57 10*3/uL 1.09-3.23 = 731-0) MONO x10^3 (test code 0.49 10*3/uL 0.36-1.02 = 742-7) EOS x10^3 (test code = 0.08 10*3/uL 0.06-0.53 711-2) BASO x10^3 (test code <0.03 0.01-0.09 = 704-7) Lab Interpretation Abnormal (test code = 46442-8) [facility] 1 Q7438-04-02 07:32:00 Name: DORA MCNEILL [facility] : 1970 Age/S: 49 / M [address] [address] [place] Unit #: [id number] Loc: [place] [address] Phys: Jay Mayo MD Acct: [id number] Dis Date: Status: ADM IN PHONE #: [phone] Exam Date: 01/10/2020 0654 FAX #: Reason: follow up colonic ileus EXAMS: CPT: [id number] XR ABDOMEN 1 V 50338 Fluoro Time: DAP (Gy m2): Air Kerma [...] colonic distention is unchanged. Electronically Signed by Montserrat Santacruz MD on 01/10/2020 at 0732 Reported and signed by: Montserrat Santacruz MD CC: Jay Mayo MD; Mark Perea MD PAGE 1 Signed Report Name: DORA MCNEILL [place] : 1970 Age/S: 49 / M [address] [address] [place] Unit #: [id number] Loc: [place] [address] Phys: Jay Mayo MD Acct: [id number] Dis Date: Status: ADM IN PHONE #: [phone] Exam Date: 01/10/2020 0658 FAX #: Reason: follow up colonic ileus EXAMS: CPT: [id number] XR ABDOMEN 1 V 33474 Fluoro Time: DAP (Gy m2): Air Kerma (mGy): <Continued> Technologist: Bakari De Leon RT(R)(CT) Trnscb Date/Time: 01/10/2020(0732) Candido.CB5 Orig Print D/T: S: 01/10/2020 (0736) PAGE 2 Signed ReportCOMPREHENSIVE METABOLIC [id number] 05:56:00 Test Item Value Reference Range Interpretation [...] TOTAL (test code = ALKP) CBC W/AUTO [id number] 05:42:00 Test Item Value Reference Range Interpretation [...] = NO DIFF/SCN CRITERIA MDIFF) BASIC METABOLIC [id number] 06:59:00 Test Item Value Reference Range Interpretation [...] code = CA) 8.5 MG/DL 8.5-10.1 N [id number] 06:59:00 Test Item Value Reference Range Interpretation Comments MAGNESIUM (test code = MAG) 2.2 MG/DL 1.8-2.4 PROTHROMBIN [id number] 06:39:00 Test Item Value Reference Range Interpretation Comments PT PATIENT (test code = PTP) 13.1 SECONDS 9.3-12.9 H INTERNATIONAL NORMAL RATIO 1.16 INR Unit 0.8-1.2 N (test code = INR) CBC W/AUTO [id number] 06:22:00 Test Item Value Reference Range Interpretation [...] DIFF/SCN CRITERIA MDIFF) - XR ABDOMEN 1 [id number] 05:39:00 Name: DORA MCNEILL [facility] : 1970 Age/S: 49 / M [address] [place] Unit #: [id number] Loc: [place] [address] 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P Acct: [id number] Dis Date: Status: ADM IN PHONE #: [phone] Exam Date: 01/09/2020522 FAX #: Reason: colonic ileus/obstruction EXAMS: CPT: [id number] XR ABDOMEN 1 V 58069 Fluoro Time: DAP (Gy m2): Air Kerma [...] MD PAGE 1 Signed Report Name: DORA MCNEILL [facility] : 1970 Age/S: 49 / M [address] [facility] Unit #: [id number] Loc: [place] [address] 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P Acct: [id number] Dis Date: Status: ADM IN PHONE #: [phone] Exam Date: 01/09/2020522 FAX #: Reason: colonic ileus/obstruction EXAMS: CPT: [id number] XR ABDOMEN 1 V 92037 Fluoro Time: DAP (Gy m2): Air Kerma (mGy): <Continued> Technologist: Carrie Barnett, RT(R)(CT) Trnscb Date/Time: 01/09/2020 (0539) Herrera Orig Print D/T: S: 01/09/2020 (0542) PAGE2 Signed ReportCoronavirus 2019 nCoV [id number] 22:38:00 Test Item Value Reference Range Interpretation Comments Coronavirus 2019 nCoV Bedside (test Negative Negative code = [id number]) Emergent procedure? YESCoronavirus 2019 nCoV [id number] 22:38:00 Test Item Value Reference Range Interpretation Comments Coronavirus 2019 nCoV Bedside (test Negative Negative code = [id number]) Emergent procedure? YESBASIC METABOLIC [id number] 18:42:00 Test Item Value Reference Range Interpretation [...] CA) 8.5 MG/DL 8.5-10.1 N CBC W/AUTO [id number] 10:50:00 Test Item Value Reference Range Interpretation [...] = NO DIFF/SCN CRITERIA MDIFF) COMPREHENSIVE METABOLIC [id number] 10:46:00 Test Item Value Reference Range Interpretation [...] 50-136 N TOTAL (test code = ALKP) [id number] 10:46:00 Test Item Value Reference Range Interpretation Comments MAGNESIUM (test code = MAG) 2.6 MG/DL 1.8-2.4 H COMPREHENSIVE METABOLIC [id number] 10:34:00 Test Item Value Reference Range Interpretation [...] TOTAL (test Unit/L 50-136 code = ALKP) [id number] 10:34:00 Test Item Value Reference Range Interpretation Comments MAGNESIUM (test code = MAG) MG/DL 1.8-2.4 - XR ABDOMEN 1 [id number] 08:28:00 Name: DORA MCNEILL [place] : 1970 Age/S: 49 / M [address] [address] [place] [address] [place] Unit #: [id number] Loc: [place] [address] Phys: Yas Edwards MD Acct: [id number] Dis Date: Status: ADM IN PHONE#: [phone] Exam Date: 01/08/202010 FAX #: Reason: ileus EXAMS: CPT: [id number] XR ABDOMEN 1 N22507 Fluoro Time: DAP (Gy m2): Air Kerma [...] MD PAGE 1 Signed Report Name: DORA MCNEILL [place] : 1970 Age/S: 49 / M [address] [place] [address] Unit #: [id number] Loc: [place] [address] Phys: Yas Edwards MD Acct: [id number] Dis Date: Status: ADM IN PHONE #: [phone] Exam Date: 01/08/202010 FAX #:Reason: ileus EXAMS: CPT: [id number] XR ABDOMEN 1 V 46059 Fluoro Time: DAP (Gy m2): Air Kerma (mGy): <Continued> Technologist: Carrie Barnett, RT(R)(CT); ... Trnscb Date/Time: 01/08/2020 (827) tJAQUELINE Orig Print D/T: S: 01/08/2020 (830) PAGE 2 Signed ReportCOMPREHENSIVE METABOLIC [id number] 07:08:00 Test Item Value Reference Range Interpretation [...] 50-136 L TOTAL (test code = ALKP) [id number] 07:08:00 Test Item Value Reference Range Interpretation Comments MAGNESIUM (test code = MAG) 1.3 MG/DL 1.8-2.4 L COMPREHENSIVE METABOLIC [id number] 05:16:00 Test Item Value Reference Range Interpretation [...] 50-136 L TOTAL (test code = ALKP) [id number] 05:16:00 Test Item Value Reference Range Interpretation Comments MAGNESIUM (test code = MAG) 1.3 MG/DL 1.8-2.4 L CBC W/AUTO [id number] 05:02:00 Test Item Value Reference Range Interpretation [...] (test code = NO DIFF/SCN CRITERIA MDIFF) [id number] 16:51:00 Test Item Value Reference Range Interpretation Comments MAGNESIUM (test code = MAG) 2.3 MG/DL 1.8-2.4 N FE W/TOTAL IRON BINDING CAP.2020-01-07 16:51:00 Test Item Value Reference Range Interpretation Comments SERUM IRON (test code = IRON) 38 mcG/DL 65-175 L TOTAL IRON BINDING CAPACITY (test 322 mcG/DL 250-450 N code = TIBC) IRON SATURATION (test code = 12 % calc 12-57 N FESAT) [id number] 16:51:00 Test Item Value Reference Range Interpretation Comments FERRITIN (test code = DAVID) 17.6 NG/ML 5.0-323.0 N CALCIUM [id number] 16:50:00 Test Item Value Reference Range Interpretation Comments CALCIUM IONIZED (test code = NAVEED) 1.12 mmol/L 1.12-1.32 N - XR ABDOMEN 1 [id number] 10:29:00 Name: DORA MCNEILL [facility] : 1970 Age/S: 49 / M [address] [facility] [place] Unit #: [id number] Loc: [place] [address] Phys: Verona Frost PA-C Acct: [id number] Dis Date: Status: ADM IN PHONE #: [phone] Exam Date: 01/07/2020 07 FAX #: Reason: reassess SBO EXAMS: CPT: [id number] XR ABDOMEN 1 V 46899 Fluoro Time: DAP (Gy m2): Air Kerma [...] Frost PAGE 1 Signed Report Name: DORA MCNEILL [facility] : 1970 Age/S: 49 / M [address] [address] [place] Unit #: [id number] Loc: [place] [address] Phys: Verona Frost PA-C Acct: [id number] Dis Date: Status: ADM IN PHONE #: [phone] Exam Date: 01/07/202012 FAX #: Reason: reassess SBO EXAMS: CPT: [id number] XR ABDOMEN 1 V 75138 Fluoro Time: DAP(Gy m2): Air Kerma (mGy): <Continued> Technologist: Bakari eD Leon RT(R)(CT) Trnscb Date/Time: 01/07/2020 (7674) tUMBERTO Orig Print D/T: S: 01/07/2020 (4907) PAGE 2 Signed ReportBASIC METABOLIC PANEL 2020-01-07 [...] CA) 5.4 MG/DL 8.5-10.1 LL CBC W/AUTO [id number] 06:49:00 Test Item Value Reference Range Interpretation [...] = NO DIFF/SCN CRITERIA MDIFF) COMPREHENSIVE METABOLIC [id number] 06:10:00 Test Item Value Reference Range Interpretation [...] TOTAL (test code = ALKP) CBC W/AUTO [id number] 05:52:00 Test Item Value Reference Range Interpretation [...] DIFF/SCN CRITERIA MDIFF) - XR ABDOMEN 1 [id number] 01:30:00 Name: DORA MCNEILL [facility] : 1970 Age/S: 49 / M [address] [address] [place] Unit #: [id number] Loc: [place] [address] Phys: Ted Coleman [employer] HEL[employer] Acct: [id number] Dis Date: Status: ADM INPHONE #: [phone] Exam Date: 01/06/2020 010 FAX #: Reason: NG Tube Placement Verification EXAMS: CPT: [id number] XR ABDOMEN 1 V 37852 Fluoro Time: DAP (Gy m2): Air Kerma [...] NP PAGE 1 Signed Report Name: DORA MCNEILL [facility] : 1970 Age/S: 49/ M [address] [place] [address] Unit #: [id number] Loc: [place] [address] Phys: Ted Coleman [employer] Acct: [id number] Dis Date: Status: ADM IN PHONE #: [phone] Exam Date: 01/06/20200 FAX #: Reason: NG Tube Placement Verification EXAMS: CPT: [id number] XR ABDOMEN 1 V 09443 Fluoro Time: DAP (Gy m2): Air Kerma (mGy): <Continued> Technologist: RT Tatum(R) Trnscb Date/Time: 01/06/2020 (129) Herrera Orig Print D/T: S: 01/06/2020 (132) PAGE 2 Signed Report- CT ABD PELVIS W/O [id number] 19:42:00 Sawyer: St: REG -- Name: DORA MCNEILL [facility] : 1970 Age/S: 49/M [address] Unit: [id number] [place]: [place]: [place] [address] Acct: [id number] Dis Date: Status: REG ER PHONE #: [phone] Exam Date: 12/13/20191924 FAX #: [phone] Reason: pain EXAMS: CPT CODE: [id number] CT ABD PELVIS W/O CONT 06605 Examination: CT scan abdomen and pelvis without [...] Trnscrd Dt/Tm: 12/13/2019 (1941) GarettVR5 Orig P charlette D/T: S: 12/13/2019 (1945 PAGE 1 Signed [...] code = CA) 8.6 mg/dl 8.0-10.5 N [id number] 18:49:00 Test Item Value Reference Range Interpretation Comments LIPASE (test code = LIP) 97 Units/L 65.0-230.0 N CBC W/AUTO [id number] 18:38:00 Test Item Value Reference Range Interpretation [...] K/mm3 0.0-0.2 N - XR CHEST 1 [id number] 18:36:00 Sawyer: St: PRE -- Name: DORA MCNEILLIC [facility] : 1970 Age/S: 49/M [address] [facility] Unit #: [id number] [place]: [place]: [place] [address] Acct: [id number] Dis Date:Status: PRE ER PHONE #: [phone] Exam Date: 12/13/20191821 FAX #: [phone] Reason: SOB EXAMS: CPT CODE: [id number] XR CHEST 1 V 13706 Examination: One view chest x-ray Location code: H60 Comparison: None Discussion: Clinical history is remarkable for shortness of breath and weakness. Heart isnormal in size. Lungs are clear of consolidating infiltrates. No effusions identified. There is significant distention of the colon. Impression: 1. Normal one view chest x-ray. 2. Colonic distention. at 1836 Reported and signed by: SHANEL EDWARDS CC: Technologist: AMBER GENTILE Trnward Date/Time/By: 12/13/2019 (1835) : By: GarettVR5 PAGE 1 Signed Report Sawyer: St: PRE ---- Name: DORA MCNEILL [facility] : 1970 Age[facility]S: 49[facility] [address] [id number] Loc: [place], [place]: [place] [address] Acct: [id number] Dis Date: Status: PRE ER PHONE #: [phone] Exam Date: 12/13/20191821 FAX #: [phone] Reason: SOB EXAMS: CPT CODE: [id number] XR CHEST 1 V 46884 (Continued) Orig Print D/T: S: 12/13/2019 (183) [...] Received comment: User comments: Slide comments:BASIC METABOLIC [id number] 07:34:00 Test Item Value Reference Range Interpretation [...] S NOT APPLICABLE FOR DIALYSIS PATIEN TS. [id number] 07:26:00 Test Item Value Reference Range Interpretation Comments PHOSPHORUS (BEAKER) (test code = 3.1 mg/dL 2.3-4.7 604) [id number] 07:26:00 Test Item Value Reference Range Interpretation Comments MAGNESIUM (BEAKER) (test code = 1.6 mg/dL 1.6-2.6 627) RAD, ABDOMEN/KUB, 1 VIEW [id number] 07:04:00Reason for exam:->ileusFINAL REPORT Abdomen , one [...] MDReport Verified Date/Time: 04/03/2019 07:04:46 Reading Location: [facility] C013X Ortho Consult Reading Room BASIC METABOLIC [id number] 06:47:00 Test Item Value Reference Range Interpretation [...] code = 413) URINALYSIS WITH MICROSCOPIC IF [id number] 22:01:00 Test Item Value Reference Range Interpretation [...] 463) SOURCE(BEAKER) (test code = 2795) URINALYSIS [id number] 22:01:00 Test Item Value Reference Range Interpretation Comments RBC UA (BEAKER) (test code = 519) 18 /HPF WBC UA (BEAKER) (test code = 520) 1 /HPF CALCIUM OXALATE CRYSTALS (BEAKER) Occasional (test code = 518) [id number] 05:49:00 Test Item Value Reference Range Interpretation Comments PHOSPHORUS (BEAKER) (test code = 2.5 mg/dL 2.3-4.7 604) [id number] 05:49:00 Test Item Value Reference Range Interpretation Comments MAGNESIUM (BEAKER) (test code = 1.7 mg/dL 1.6-2.6 627) BASIC METABOLIC [id number] 05:49:00 Test Item Value Reference Range Interpretation [...] (BEAKER) (test code = 413) BASIC METABOLIC [id number] 06:19:00 Test Item Value Reference Range Interpretation [...] S NOT APPLICABLE FOR DIALYSIS PATIEN TS. [id number] 06:10:00 Test Item Value Reference Range Interpretation Comments MAGNESIUM (BEAKER) 1.8 mg/dL 1.6-2.6 Specimen slightly (test code = 627) hemolyzed [id number] 06:10:00 Test Item Value Reference Range Interpretation [...] (BEAKER) (test code = 413) BASIC METABOLIC [id number] 04:57:00 Test Item Value Reference Range Interpretation [...] S NOT APPLICABLE FOR DIALYSIS PATIEN TS. [id number] 04:55:00 Test Item Value Reference Range Interpretation Comments PHOSPHORUS (BEAKER) (test code = 2.6 mg/dL 2.3-4.7 604) [id number] 04:55:00 Test Item Value Reference Range Interpretation Comments MAGNESIUM (BEAKER) (test code = 1.8 mg/dL 1.6-2.6 627) CT, [id number] 14:16:00FINAL REPORT TECHNIQUE: CT of the abdomen [...] Pope MDReport Verified Date/Time: 03/29/2019 14:16:01Reading Location: [facility] B1 C013Y CT Body Reading Room , ABDOMEN/KUB, 1 VIEW [id number] 10:23:00Reason for exam:->evaluate ileusFINAL REPORT Technique: Supine [...] MDReport Verified Date/Time: 03/29/2019 10:23:29 Reading Location: [facility] Reading Room CBC (HEMOGRAM ONLY)2019-03-29 08:10:00 [...] WBC 0-0 (BEAKER) (test code = 413) [id number] 06:20:00 Test Item Value Reference Range Interpretation Comments PHOSPHORUS (BEAKER) (test code = 2.6 mg/dL 2.3-4.7 604) [id number] 06:20:00 Test Item Value Reference Range Interpretation Comments MAGNESIUM (BEAKER) (test code = 2.0 mg/dL 1.6-2.6 627) BASIC METABOLIC [id number] 06:20:00 Test Item Value Reference Range Interpretation [...] TS. RAD, ABDOMEN SERIES W/ UPRIGHT PA [id number] 22:18:00Reason for exam:- >eval ileusFINAL REPORT CLINICAL [...] with CT abdomen pelvis. Signed: Jian Powers MDReport Verified Date/Time: 03/28/2019 22:18:50 RAD, ABDOMEN/KUB, 1 VIEW [id number] 11:23:00Reason for exam:->abdominal distensionShould this be performed [...] Ontiveros Verified Date/Time: 03/28/2019 11:23:34 Reading Location: [facility] Radiology Reading Room TISSUE [id number] 09:00:00Surgical Pathology Report Case: [id number] Authorizing Provider: Graciela Garrison MD Collected: 03/25/2019 1133 Ordering Location: [facility] Received: 03/25/2019 1527 SERVICES Pathologist: [...] NEGATIVEFOR MALIGNANCY Signing Pathologist Direct Phone Line: [phone] signed by Jordan Celaya MD on 03/28/2019 at 9:00 [id number] and postop diagnosis: ileostomy statusA. End ileostomy; [...] nodes are not identified in the mesentery. B[employer] Plant Manager sections are submitted. Section code: A, human resources hr representative section of each end of first mentioned segment of small bowel; A2, human resources hr representative of first mentioned segment of small bowel mucosa; A3, area of hemorrhagic mesentery of second mentioned segment of mucosa; A4, human resources hr representative of hemorrhagic mucosa at open end of second portion of small bowel; A5, human resources hr representative of stapled margin from second mentioned [...] 0.2 cm. No gross lesions are identified. Biodiesel Plant Manager sections are submitted. Section code: B1, proximal margin en face and tip; B2, human resources hr representative cross section. CG/pl Performed.[id number] 06:23:00 Test Item Value Reference Range Interpretation Comments PHOSPHORUS (BEAKER) (test code = 2.7 mg/dL 2.3-4.7 604) [id number] 06:23:00 Test Item Value Reference Range Interpretation Comments MAGNESIUM (BEAKER) (test code = 1.9 mg/dL 1.6-2.6 627) BASIC METABOLIC [id number] 06:23:00 Test Item Value Reference Range Interpretation [...] S NOT APPLICABLE FOR DIALYSIS PATIEN TS. [id number] 08:20:00 Test Item Value Reference Range Interpretation Comments PHOSPHORUS (BEAKER) (test code = 2.6 mg/dL 2.3-4.7 604) [id number] 08:20:00 Test Item Value Reference Range Interpretation Comments MAGNESIUM (BEAKER) (test code = 1.8 mg/dL 1.6-2.6 627) BASIC METABOLIC [id number] 08:20:00 Test Item Value Reference Range Interpretation [...] S NOT APPLICABLE FOR DIALYSIS PATIEN TS. [id number] 06:06:00 Test Item Value Reference Range Interpretation Comments PHOSPHORUS (BEAKER) (test code = 4.1 mg/dL 2.3-4.7 604) [id number] 06:06:00 Test Item Value Reference Range Interpretation Comments MAGNESIUM (BEAKER) (test code = 1.8 mg/dL 1.6-2.6 627) BASIC METABOLIC [id number] 06:06:00 Test Item Value Reference Range Interpretation [...] S NOT APPLICABLE FOR DIALYSIS PATIEN TS. [id number] 06:03:00 Test Item Value Reference Range Interpretation Comments PHOSPHORUS (BEAKER) (test code = 4.2 mg/dL 2.3-4.7 604) [id number] 06:03:00 Test Item Value Reference Range Interpretation Comments MAGNESIUM (BEAKER) (test code = 2.0 mg/dL 1.6-2.6 627) BASIC METABOLIC [id number] 06:03:00 Test Item Value Reference Range Interpretation [...] WBC 0-0 (BEAKER) (test code = 413) [id number] 05:52:00 Test Item Value Reference Range Interpretation Comments PHOSPHORUS (BEAKER) (test code = 4.2 mg/dL 2.3-4.7 604) [id number] 05:52:00 Test Item Value Reference Range Interpretation Comments MAGNESIUM (BEAKER) (test code = 1.9 mg/dL 1.6-2.6 627) BASIC METABOLIC [id number] 05:52:00 Test Item Value Reference Range Interpretation [...] S NOT APPLICABLE FOR DIALYSIS PATIEN TS. [id number] 06:51:00 Test Item Value Reference Range Interpretation Comments PHOSPHORUS (BEAKER) (test code = 4.3 mg/dL 2.3-4.7 604) [id number] 06:51:00 Test Item Value Reference Range Interpretation Comments MAGNESIUM (BEAKER) (test code = 2.0 mg/dL 1.6-2.6 627) BASIC METABOLIC [id number] 06:51:00 Test Item Value Reference Range Interpretation [...] 0-0 (BEAKER) (test code = 413) TISSUE [id number] 11:50:00Surgical Pathology Report Case: [id number] Authorizing Provider: Mela Larson MD Collected: 03/18/2019 1827 Ordering Location: [facility] Received: 03/21/2019 0823 SERVICES Pathologist: Jordan Celaya MD Specimen: Small Bowel, NOS A. SMALL BOWEL, ILEOSTOMY PROLAPSE, TAKEDOWN: - ANASTOMOSIS SITE WITH ACTIVE CHRONIC INFLAMMATION AND FOCAL ISCHEMIC CHANGES - MUCOSAL RESECTION MARGINS, NEGATIVE FOR MALIGNANCY - ONE BENIGN LYMPH NODE (0/1) - NEGATIVE FOR DYSPLASIA OR MALIGNANCYSigning Pathologist Direct Phone Line: [phone] signed by Jordan Celaya MDon 03/22/2019 at 11:50 [id number] of ileostomyReceived in a container labeled "small [...] 0.5 to 1.2 cm in greatest dimension. Biodiesel Plant Manager sections are submitted as follows: A1-A2, mucosal resection margin, en face; A3-A6, human resources hr representative sections of the possible ostomy stump; A7-A11, serial human resources hr representative sections from mucosal resection margin to the possible ostomy stump; A12, two lymph nodes. TH/plPerformed.[id number] 06:58:00 Test Item Value Reference Range Interpretation Comments PHOSPHORUS (BEAKER) (test code = 3.8 mg/dL 2.3-4.7 604) [id number] 06:58:00 Test Item Value Reference Range Interpretation Comments MAGNESIUM (BEAKER) (test code = 2.0 mg/dL 1.6-2.6 627) BASIC METABOLIC [id number] 06:58:00 Test Item Value Reference Range Interpretation [...] PATIEN TS. CBC W/PLT COUNT & AUTO [id number] 05:42:00 Test Item Value Reference Range Interpretation [...] PERCENT (BEAKER) (test code = 2801) FL, [id number] 17:42:00Reason for exam:->evaluate for colon stricture as [...] Lopezort Verified Date/Time: 03/21/2019 17:42:21 Reading Location: [facility] B1 C013X [facility] Consult Reading Room Electronically signed by: SHANELLE LOPEZ M.D. on03/21/2019 05:42 [id number] 03:58:00 Test Item Value Reference Range Interpretation Comments PHOSPHORUS (BEAKER) (test code = 3.0 mg/dL 2.3-4.7 604) [id number] 03:58:00 Test Item Value Reference Range Interpretation Comments MAGNESIUM (BEAKER) (test code = 2.0 mg/dL 1.6-2.6 627) BASIC METABOLIC [id number] 03:58:00 Test Item Value Reference Range Interpretation [...] PATIEN TS. CBC W/PLT COUNT & AUTO [id number] 03:20:00 Test Item Value Reference Range Interpretation [...] (BEAKER) (test code = 2801) BASIC METABOLIC [id number] 06:26:00 Test Item Value Reference Range Interpretation [...] S NOT APPLICABLE FOR DIALYSIS PATIEN TS. [id number] 06:05:00 Test Item Value Reference Range Interpretation Comments PHOSPHORUS (BEAKER) (test code = 2.2 mg/dL 2.3-4.7 L 604) [id number] 06:05:00 Test Item Value Reference Range Interpretation Comments MAGNESIUM (BEAKER) (test code = 2.0 mg/dL 1.6-2.6 627) CBC W/PLT COUNT & AUTO [id number] 05:25:00 Test Item Value Reference Range Interpretation [...] 0-1 PERCENT (BEAKER) (test code = 2801) [id number] 04:31:00 Test Item Value Reference Range Interpretation Comments PHOSPHORUS (BEAKER) (test code = 3.7 mg/dL 2.3-4.7 604) [id number] 04:31:00 Test Item Value Reference Range Interpretation Comments MAGNESIUM (BEAKER) (test code = 1.9 mg/dL 1.6-2.6 627) BASIC METABOLIC [id number] 04:31:00 Test Item Value Reference Range Interpretation [...] PATIEN TS. CBC W/PLT COUNT & AUTO [id number] 04:15:00 Test Item Value Reference Range Interpretation [...] 0-1 PERCENT (BEAKER) (test code = 2801) [id number] 06:41:00 Test Item Value Reference Range Interpretation Comments PHOSPHORUS (BEAKER) (test code = 3.1 mg/dL 2.3-4.7 604) [id number] 06:41:00 Test Item Value Reference Range Interpretation Comments MAGNESIUM (BEAKER) (test code = 1.9 mg/dL 1.6-2.6 627) BASIC METABOLIC [id number] 06:41:00 Test Item Value Reference Range Interpretation [...] PATIEN TS. CBC W/PLT COUNT & AUTO [id number] 06:36:00 Test Item Value Reference Range Interpretation [...] PERCENT (BEAKER) (test code = 2801) CT, [id number] 17:04:00No PO contrastFINAL REPORT ABDOMINAL AND PELVIS [...] MDReport Verified Date/Time: 03/17/2019 17:04:19 Reading Location: [facility] B1 C013Y CT Body Reading Room XR ABDOMEN 2 [id number] 09:03:45XR ABDOMEN 2 VIEWSLOCATION: [id number]: Colstomy ProlapseCOMPARISON: Chest radiograph 04/15/2017, CTof the [...] Nonspecific, nonobstructive bowel gas pattern.XR CHEST 1 [id number] 11:32:15EXAM: CHEST ONE VIEWINDICATION: Chest painCOMPARISON: None availableTECHNIQUE: AP view of the chest.FINDINGS: The cardiomediastinal silhouette is normal. The lungs are clearbilaterally. No pneumothoraxor pleural effusion is identified. Theosseous structures are unremarkable.IMPRESSION: No acute cardiopulmonary process.LOCATION: [id number] Type and [id number] 21:21:00 Test Item Value Reference Range Interpretation Comments ABO type (test code = ABO) O Rh Type (test code = RH) Positive Comprehensive Metabolic [id number] 20:36:00 Test Item Value Reference Range Interpretation [...] the National Kidney Foundation,http ://nkd ep.nih.gov Alcohol/Ethanol, [id number] 20:36:00 Test Item Value Reference Range Interpretation Comments Alcohol, Ethyl <0.01 g/dL 0.00-0.01 N Intoxicated 0 .080 g/dL (test code = ETOH) or more Prothrombin [id number] 20:00:00 Test Item Value Reference Range Interpretation Comments PT (test code = PT) 10.10 seconds 9.78-13.35 N INR (test code = INR) 0.88 Ratio 0.6-1.2 N Partial Thromboplastin [id number] 20:00:00 Test Item Value Reference Range Interpretation Comments aPTT (test code = PTT) 31.50 seconds 24.39-37.25 N CBC with [id number] 19:50:00 Test Item Value Reference Range Interpretation [...] code = ALYMPH) 2.2 K/cumm 0.5-4.6 N Peach Abs (test code = AMONO) 0.4 K/cumm 0.0-1.2 N Eos Abs (test code = AEOS) 0.17 K/cumm 0.00-0.74 N Baso Abs (test code = ABASO) 0.0 K/cumm 0.00-0.21 N 68750& PELVIS W/O [id number] 17:36:28CT ABDOMEN AND PELVIS WITHOUT CONTRAST.CLINICAL HISTORY: [...] possible enterocolitis.2. Right lower quadrant ileostomy.Location: R16 History and Physical Notes Date/Time Note Provider Source 2022-02-18 Formatting of this note is different fro m the original. Internal Medicine [facility] 21:22:43-00:00 Moe Leonard Internal Medicine - [facility] Admit Y Admission History & Physical for [facility] System Patient admitted by Fannie Blake MD ([facility] Admitter Y). For any questions until 12AM on 02/19/2022, please page [phone]. After 12AM, please contact [facility] at [phone]. Thank you! Patient name: Dora Mcneill Date of admission: 02/18/2022 1:58 PM LOS: 0 days Room: CRITICAL CARE /CC- * Assessment & Plan: Dora Mcneill is an 52 y.o. year-old male with a past medical history significant for ostomy who presents with lightheadedness and hypotension in the setting of high ostomy output. # High ostomy output # ALMA # Hypotension # Hypovolemic hyponatremia - Per last d/c summary has h ad extensive work-up: presumed 2/2 structural process given onset after 2000 surgery versus adaptation failure versus autoimmune/inflammatory bowel etiology; less likely infe ctious given chronic timing, negative enteric panel, and negative fecal leukocytes. Normal transglutaminase IgA - Restart regimen that has worked for him previo usly: loperamide and psyllium - Monitor stool output and r eplace to keep net even until ostomy output normalizes - Can consider GI or surgery consultation if not improvement with above - Baseline creatinine 1.1. a dmission 2.6; likely pre-renal or pre-renal progressed to ATN in the setting of volume depletion - s/p IVF bolus in EC with i mprovement in vitals/symptoms, will start LR @ 150cc/hour x24 hours; f/u ostomy output and replace with IVF to keep net even - Avoid nephrotoxic medications, renally dose me dications # Pre-syncope - patient reports seeing destiney ck spots on changing position, states this was present even on discahrge last admission - Suspect this is most likel y due to orthostatic hypotension in the setting of volume depletion, but can check orthostatic vital signs after he is fluid replete # Normocytic anemia # VITA # B12 def - PO supplementation - hgb acceptable # Homelessness - social work consult placed for assistance with homeless resources, homeless jareth - not having access to medic ation refills is the primary reason for his readmission, will try to discharge with as many pills as possible; discuss with social work other options (potentially healthcare for the homeless) FULL CODE DVT PPX: enoxa DIET: regular Dispo: Hospitalize as observation, home when sym ptoms/vitals/cr/lytres Fannie Blake MD [employer] Supervisor Section of General Internal Medicine, [facility] HHS ID [id number] No future appointments. Chief Complaint: ostomy supplies, dizziness History of Present Illness: Dora Mcneill is an 52y .o. 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 Patient given ostomy supplie s and prolapse was reduced at bedside. Patient then go up to go to bathroom and became dizzy and found to have hypotension to 70/50s with tachy to 110s, so he was evaluated further. States still having lots of output from ostomy and still homeless spending most of the time outdoors in the sun. Trying to take in as much po/water. Review of Systems: Review of Systems Constitutional: Negative for activity change. HENT: Negative for ear pain. Eyes: Negative for pain. Respiratory: Negative for choking. Gastrointestinal: Negative for rectal pain. Endocrine: Negative for polyphagia. Genitourinary: Negative for dysuria. Musculoskeletal: Negative for back pain. Allergic/Immunologic: Negative for food allergie s. Neurological: Negative for speech difficulty. Psychiatric/Behavioral: Negative for decreased c oncentration. Past Medical History: Past Medical History: Diagnosis Date Alcohol abuse sober since 04/06/2017 Homelessness 04/10/2017 Thyroid disease 2012 Past Surgical History: Past Surgical History: Procedure Laterality Date HX COLOSTOMY Lateral Right Since 11/2016 Medications (home): No current facility-administered medications on file prior to encounter. Current Outpatient Medications on File Prior to Encounter Medication Sig Dispense Refill psyllium (METAMUCIL) 6 gram PwPk Take 1 Packet by mouth 90 Packet 1 nutritional supplemment (BOOST) oral liquid Take 1 Package by mouth 3 times daily 5688 mL 3 tamsulosin (FLOMAX) 0.4 mg capsule Take 1 capsule by mouth every evening for 30 days 30 capsule 1 ascorbic acid, vitamin C, 250 mg tablet Take 1 tablet by mouth daily for 60 days 30 tablet 1 ferrous sulfate 325 mg (65 mg iron) tablet Take 1 tablet by mouth daily for 60 days 60 tablet 0 loperamide (IMODIUM) 2 mg capsule Take 2 capsules by mouth 3 times daily (before meals) for 30 days 180 capsule 0 magnesium oxide (MAG-OX) 400 mg (241.3 mg magnesium) tablet Take 2 tablets by mouth 2 times daily for 60 days 120 tablet 1 multivitamin with folic acid (THERA) 400 mcg tablet Take 1 tablet by mouth daily for 60 days 30 tablet 1 cyanocobalamin, vitamin B-12, 1,000 mcg tablet Take 1 tablet by mouth daily 30 tablet 3 Allergies: No Known Allergies Family History: No family history on file. Social History: Social History Tobacco Use Smoking status: Never Smoker Smokeless tobacco: Current User Substance Use Topics Alcohol use: Yes Drug use: No Physical exam Vitals: 02/18/22 1505 02/18/22 1530 02/18/22 1600 02/18 1900 BP: 96/65 93/69 106/67 116/76 Pulse: 71 78 72 71 Resp: Temp: 98.6 F (37 C) SpO2: 98% 99% 99% Wt Readings from Last 3 Encounters: 02/08/22 156 lb (70.8 kg) 01/16/22 152 lb 1.6 oz (69 kg) 01/10/22 163 lb 11.2 oz (74.3 kg) There is no height or weight on file to calculat e BMI. General: Thin but generally well-appearing, abad HEENT: Normocephalic, atraumatic, MMM, Neck supp le. No JVD. CVS: Normal rate. Regular rhythm. Normal S1/S2, no murmurs, rubs or gallops. Pulmonary: CTAB, no wheezes, rales or rhonchi. Abdomen: Hyperactive bowel s ounds, soft, non-tender, non-distended; ostomy in place Extremities: No edema bilate rally. No clubbing. No cyanosis. Warm and well perfused. Neurologic: No focal neuro deficits. Following c ommands. Skin: No rashes Psych: Mood and affect appropriate Data: Reviewed in [facility] 2022-02-07 Formatting of this note is different from the or iginal. [facility] 19:39:59-00:00 ADMISSION HISTORY AND PHYSICAL S [facility] 5 Patient is admitted by HAO Mcclendon on the night of 02/07. To reach the covering provider please page HOT Y until Midnight. After Midnight, please page HOT Night or call [phone]. Chief Complaint: Increased ostomy output HPI: Dora Mcneill is an 51y .o. 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 Patient was recently admitte d in December with a similar presentation (ALMA, dehydrdation, hyponatremia to 124). He was treated with loperamide and psyllium with marked improvement in his ostomy output. Per karolyn johnson, high output has been w orked up extensively in the past and is felt to be 2/2 structural process versus adaptation failure (less likely due to infectious or inflammatory). He reports that he was do ing well after discharge wit h his output decreased by about 50% (1-2 bags per day) until he ran out of his prescribed loperamide. He was unable to obtain more due to lack of funding. For the last severa l weeks he has has 4-5 bags daily of ostomy output. He has been trying to drink water but has not been able to keep up. He reports feeling lightheaded including seeing black spots or darkening of his vision when changing position. No other issues, generally f eeling well. No fevers, chills, headaches, nausea, vomiting, chest pain, cough. EC Course: Patient hypotensi ve on arrival. Found to have ALMA and hyponatremia. He received 2L NSS with improvement in blood pressures. Review of systems: 10 point review of systems conducted and is nega tive except as noted in HPI. PMHx: Past Medical History: Diagnosis Date Alcohol abuse sober since 04/06/2017 Homelessness 04/10/2017 Thyroid disease 2012 PSHx: Past Surgical History: Procedure Laterality Date HX COLOSTOMY Lateral Right Since 11/2016 Fam Hx: No family history on file. SOCIAL HISTORY: Social History Tobacco Use Smoking status: Never Smoker Smokeless tobacco: Current User Substance Use Topics Alcohol use: Yes Drug use: No Allergies: No Known Allergies Immunization Hx: Immunization History Administered Date(s) Administered PPD 04/14/2017 Medications: Complete list of medications reviewed and recon ciled. No current facility-administered medications on file prior to encounter. Current Outpatient Medications on File Prior to Encounter Medication Sig Dispense Refill tamsulosin (FLOMAX) 0.4 mg capsule Take 1 capsule by mouth every evening for 30 days 30 capsule 1 ascorbic acid, vitamin C, 250 mg tablet Take 1 tablet by mouth daily for 60 days 30 tablet 1 ferrous sulfate 325 mg (65 mg iron) tablet Take 1 tablet by mouth daily for 60 days 60 tablet 0 loperamide (IMODIUM) 2 mg capsule Take 2 capsules by mouth 3 times daily (before meals) for 30 days 180 capsule 0 magnesium oxide (MAG-OX) 400 mg (241.3 mg magnesium) tablet Take 2 tablets by mouth 2 times daily for 60 days 120 tablet 1 multivitamin with folic acid (THERA) 400 mcg tablet Take 1 tablet by mouth daily for 60 days 30 tablet 1 psyllium (METAMUCIL) 6 gram PwPk Take 1 Packet by mouth 3 times daily (before meals) for 90 days 90 Packet 2 nutritional supplemment (BOOST) oral liquid Take 1 Package by mouth 3 times daily 5688 mL 3 cyanocobalamin, vitamin B-12, 1,000 mcg tablet Take 1 tablet by mouth daily 30 tablet 3 Physical exam: Visit Vitals BP 92/59 Pulse 82 Temp 97.9 F (36.6 C) Resp 18 Wt 165 lb 5.5 oz (75 kg) SpO2 97% BMI 21.81 kg/m2 Smoking Status Never Smoker BSA 1.97 m2 General: Thin but generally well-appearing HEENT: Normocephalic, atraumatic, MMM, Neck supp le. No JVD. CVS: Normal rate. Regular rhythm. Normal S1/S2, no murmurs, rubs or gallops. Pulmonary: CTAB, no wheezes, rales or rhonchi. Abdomen: Hyperactive bowel s ounds, soft, non-tender, non-distended; ostomy in place Extremities: No edema bilate rally. No clubbing. No cyanosis. Warm and well perfused. Neurologic: No focal neuro deficits. Following c ommands. Skin: No rashes Psych: Mood and affect appropriate Imaging and labs: Reviewed CBC 6.5 11.5 (L) 344 35.9 (L) BMP 132 (L) 103 30.4 (H) 116 (H) 3.9 21 1.9 (H) Ca: 8.3 (L) M.9 Ph: 5.4 (H) LFT 6.7 4.4 15 (AST) 12 (ALT) 0.5 -- Admission Na 128--> 132 after fluid resuscitatio n Creatinine 2.3 --> 1.9 (baseline 1.1) Active Problems Active Problems: Hypotension Hyponatremia ALMA (acute kidney injury) ASSESSMENT AND PLAN: Dora Mcneill is an 51y .o. year-old male with a past medical history significant for ostomy who presents with lightheadedness and hypotension in the setting of high ostomy output. # High ostomy output - Per last d/c summary has h ad extensive work-up: presumed 2/2 structural process given onset after 2000 surgery versus adaptation failure versus autoimmune/inflammatory bowel etiology; less likely infe ctious given chronic timing, negative enteric panel, and negative fecal leukocytes. Normal transglutaminase IgA - Restart regimen that has worked for him previo usly: loperamide and psyllium - Monitor stool output and r eplace to keep net even until ostomy output normalizes - check am cortisol given re current hypotension to eval for adrenal insufficiency - Can consider GI or surgery consultation if not improvement with above # ALMA # Hypotension # Hypovolemic hyponatremia - Baseline creatinine 1.1. a dmission 2.4; likely pre-renal or pre-renal progressed to ATN in the setting of volume depletion - s/p 2L NSS in EC, will sta rt LR @ 125cc/hour x24 hours; f/u ostomy output and replace with IVF to keep net even - Avoid nephrotoxic medications, renally dose me dications # Pre-syncope - patient reports seeing destiney ck spots on changing position, states this was present even on discahrge last admission - Suspect this is most likel y due to orthostatic hypotension in the setting of volume depletion, but can check orthostatic vital signs after he is fluid replete # Homelessness - social work consult placed for assistance with homeless resources, homeless jareth - not having access to medic ation refills is the primary reason for his readmission, will try to discharge with as many pills as possible; discuss with social work other options (potentially healthcare for the homeless) FULL CODE DVT PPX: low risk, ambulation DIET: regular Dispo: Hospitalize as observ ation, IMU given hypotension, can downgrade if Bps improved tomorrow, telemetry, HOT 5 Jian Schmitt M.D. [employer] Supervisor, Internal Medicine [facility]# [id number] February 07, 2022 7:50 PM Procedure Notes Date/Time Note Provider Source 2022-02-19 Formatting of this note might be differe nt from the original. Brittani Mccain RN [facility] 06:40:13-00:00 Vascular Access team consult ed for difficult venous access. Patient assessed for midline. 18g 10cm midline catheter inserted in right upper arm using ultrasound guidance. Brisk blood return; flushes eas System shannon and w/o pain using 10ml 0.9NS Pt tolerated well. No c/o pain or discomfort. Notes Date/Time Note Provider Source 2023-03-20 Formatting of this note might be differe nt from the original. Jian Ambriz [facility] 14:48:15-00:00 Pt saying he has not urinate d in 6 days. Bladder scanned pt- 32mL scanned in center of bladder. Jeremy RN 2023-03-20 Formatting of this note might be differe nt from the original. Inez Brock RN [facility] 14:23:50-00:00 [facility] for c/o dizzin ess, lightheaded that started an hour ago. Patient was walking from [place] to [place] when symptoms began. Additional c/o 4-5 without urine output. History of colostomy rever misael one month ago. DIGITAL ACCOUNT DIRECTOR 500 cc NS. VSS. AAO x 4, GCS 15. 2023-03-20 Associated Order(s): EKG-12 Lead ROUTINE ONCE [facility] 14:22:00-00:00 Pre-Procedure Diagnose(s): Dehydration Post-Procedure Diagnose(s): Dehydration Formatting of this note is different from the or iginal. [facility] Emergency Department Note Patient Name: Dora Mcneill Date of : 1970 53 year old male Treatment Room: [place] [address] Primary Care Physician: PATIENT DOES NOT HAVE A PCP Patient Escorted by: Self [9] Mode of Arrival: EMS - [facility] [21] EMS Treatment Prior to ED Arrival: Travel and Exposure Screening: Symptoms Does patient have any of these symptoms?: (not r ecorded) Exposure Screening Has patient had contact with someone with a communicable disease in the last month?: (not recorded) Diseases exposed to:: (not recorded) Is Patient ?: (not recorded) Exposure Date: (not recorded) Chief Complaint: Chief Complaint Patient presents with Dizziness History of Present Illness: The patient presents emergen cy department complaining of feeling dehydrated. He states he is homeless and has been outside in the sun. He is been trying drink water but feels like he is dehydrated. He s tates he has had decreased u rine output for the last few days and feels lightheaded. He denies any vomiting. He states he has been having bowel movements. He does have a history of previous bowel resect ion and had a colostomy. He had reversal of colostomy few months ago. He is denying any headache, chest pain or shortness of breath. Past Medical History/Immunizations: Past Medical History: Diagnosis Date Chronic kidney disease Colonic inertia Depression with history of SI Difficult airway for intubation Homeless Hypothyroidism Noncompliance Psychiatric disorder SI SBO (small bowel obstruction) Tetanus received in last 5 years: Unknown Childhood immunizations: Up-to-date Allergies: No Known Allergies Past Social History: Tobacco Use Former Smokeless Tobacco: Current user of smokeless to bacco; Types: Chew. Comments: dips Vaping Use Never used Alcohol Use Not Currently. Comments: 6 pk every other week Drug Use No. Past Surgical History: Past Surgical History: Procedure Laterality Date ANASTOMOSIS BOWEL (SHX) N/A 12/04/2022 Surgeon: Bia Pedro MD; [facility] BOWEL RESECTION N/A 11/23/2016 Surgeon: Marco Christensen MD; Location: [facility] BOWEL RESECTION Right 01/06/2019 Surgeon: Constantin Savage MD; [facility] COLECTOMY N/A 04/03/2020 Surgeon: Bia Pedro MD; [facility] COLONOSCOPY N/A 09/27/2016 Surgeon: Ryan Broderick MD; Location: [facility] COLONOSCOPY Lower 10/07/2016 Surgeon: Ryan Broderick MD; Location: [facility] Location COLONOSCOPY N/A 04/03/2020 Surgeon: Bia Pedro MD; [facility]: [facility] COLONOSCOPY N/A 12/04/2022 Surgeon: Bia Pedro MD; Location: [facility] COLOSTOMY REVISION N/A 11/23/2016 Surgeon: Marco Christensen MD; Location: [facility] Location COLOSTOMY REVISION N/A 09/03/2021 Surgeon: Bia Pedro MD; Location: [facility] EXAMINATION UNDER ANESTHESIA 09/30/2012 Surgeon: Lewis Feliz MD; Location: [facility] EXPLORATORY LAPAROTOMY 2000 for volvulus repair about 15 years ago EXPLORATORY LAPAROTOMY N/A 10/17/2016 Surgeon: Yessica Leach MD; [facility]: [facility] EXPLORATORY LAPAROTOMY N/A 04/06/2020 Surgeon: Juventino Mccabe MD; Location: [facility] ILEOSTOMY N/A 10/08/2016 Surgeon: Ryan Broderick MD; Location: [facility] Location ILEOSTOMY Right 01/06/2019 Surgeon: Constantin Savage MD; Location: [facility] Location ILEOSTOMY TAKEDOWN N/A 12/04/2022 Surgeon: Bia Pedro MD; Location: [facility] LOC[facility] LAPAROSCOPIC COLECTOMY N/A 04/03/2020 Surgeon: Bia Pedro MD; [facility] Location PROCTOSCOPY 09/30/2012 Surgeon: Lewis Feliz MD; Location: [facility] RECTAL BIOPSY 09/30/2012 Surgeon: Lewis Feliz MD; Location: [facility] OR LOCATION Review of Systems: Review of Systems Constitutional: Positive for chills. Negative fo r fever. HENT: Negative for sore throat. Respiratory: Negative for cough and shortness of breath. Cardiovascular: Negative for chest pain. Gastrointestinal: Positive f or abdominal pain. Negative for constipation, diarrhea and vomiting. Genitourinary: Negative for decreased urine volu me. Musculoskeletal: Negative for back pain, neck pa in and neck stiffness. Skin: Negative for rash. Neurological: Positive for light-headedness. All other systems reviewed and are negative. Physical Exam: ED Triage Vitals [03/20/23 1426] Weight 65.8 kg (145 lb) Actual or estimated Estimated by patient/family report Height 1.854 m (6' 1") BP 120/74 Pulse 76 Resp 18 Temp Temp src SpO2 98 % Measured on Room air Physical Exam Constitutional: General: He is not in acute distress. Appearance: He is not ill-appearing. HENT: Head: Normocephalic and atraumatic. Nose: Nose normal. Mouth/Throat: Mouth: Mucous membranes are moist. Eyes: Conjunctiva/sclera: Conjunctivae normal. Cardiovascular: Rate and Rhythm: Normal rate and regular rhythm . Heart sounds: Normal heart sounds. Pulmonary: Effort: Pulmonary effort is normal. Breath sounds: Normal breath sounds. Abdominal: Palpations: Abdomen is soft. Tenderness: There is abdominal tenderness. Ther e is no guarding or rebound. Musculoskeletal: General: No swelling. Normal range of motion. Cervical back: Normal range of motion. Skin: General: Skin is warm and dry. Comments: Very abad skin Neurological: General: No focal deficit present. Mental Status: He is alert. Mental status is a t baseline. Cranial Nerves: No cranial nerve deficit. Sensory: No sensory deficit. Motor: No weakness. Coordination: Coordination normal. Psychiatric: Mood and Affect: Mood normal. Behavior: Behavior normal. Radiology: No orders to display Lab Results: Lab Results CBC WITH DIFF - Abnormal Result Value Ref Range WBC 6.10 4.20 - 10.70 10*3/?L RBC 4.07 (*) 4.26 - 5.52 10*6/?L HGB 11.3 (*) 12.2 - 16.4 g/dL HCT 35.5 (*) 38.4 - 49.3 % MCV 87.2 81.7 - 95.6 fL MCH 27.8 26.1 - 32.7 pg MCHC 31.8 31.2 - 35.0 g/dL RDW-SD 50.3 38.5 - 51.6 fL RDW-CV 15.7 (*) 12.1 - 15.4 % PLT 277 150 - 328 10*3/?L MPV 9.9 9.8 - 13.0 fL NRBC/100 WBC 0.0 0.0 - 10.0 /100 WBCs NRBC x10^3 <0.01 10*3/?L GRAN MAT (NEUT) % 61.7 % IMM GRAN % 0.20 % LYMPH % 26.9 % MONO % 8.7 % EOS % 1.8 % BASO % 0.7 % GRAN MAT x10^3(ANC) 3.77 1.99 - 6.95 10*3/uL IMM GRAN x10^3 <0.03 0.00 - 0.06 10*3/uL LYMPH x10^3 1.64 1.09 - 3.23 10*3/uL MONO x10^3 0.53 0.36 - 1.02 10*3/uL EOS x10^3 0.11 0.06 - 0.53 10*3/uL BASO x10^3 0.04 0.01 - 0.09 10*3/uL COMP. METABOLIC PANEL (83882) - Abnormal NA 141 135 - 145 mmol/L K 3.4 (*) 3.5 - 5.0 mmol/L CL 104 98 - 108 mmol/L CO2 TOTAL 28 23 - 31 mmol/L AGAP 9 2 - 16 BUN 17 7 - 23 mg/dL GLUCOSE 92 70 - 110 mg/dL CREATININE 1.44 (*) 0.60 - 1.25 mg/dL TOTAL BILI 0.5 0.1 - 1.1 mg/dL CALCIUM 8.7 8.6 - 10.6 mg/dL T PROTEIN 6.8 6.3 - 8.2 g/dL ALBUMIN 4.1 3.5 - 5.0 g/dL ALK PHOS 73 34 - 122 U/L ALTv 22 5 - 50 U/L AST(SGOT) 34 13 - 40 U/L eGFR 51.3 mL/min/1.73m2 CREATINE KINASE - Abnormal CK 322 (*) 33 - 194 U/L LACTIC ACID WHOLE BLOOD - Normal LACTIC ACID 1.00 0.50 - 2.20 mmol/L LIPASE - Normal LIPASE 61 0 - 220 U/L ETHANOL ALCOHOL <10 mg/dL EKG: If EKG completed, see Procedure Note. Orders and Treatments: Orders Placed This Encounter Procedures CBC WITH DIFF COMP. METABOLIC PANEL (83795) Lactic Acid Whole Blood Lactic Acid Whole Blood CREATINE KINASE LIPASE ETHANOL Orders Placed This Encounter Medications NaCl 0.9% (NS) bolus infusion 2,000 mL First Provider Eval: ED Events Date/Time Event User Comments 03/20/23 1503 Medical Screening Begins SABI ROBLEDO MD -- 03/20/23 1503 First Provider Evaluation SABI CAMACHO -- ED COURSE Diagnosis/Impression as of 03/20/23 1724 Dehydration Procedures: EKG-12 Lead ROUTINE ONCE Date/Time: 03/20/2023 3:40 PM Performed by: Sabi Robledo MD Authorized by: Sabi Robledo MD ECG reviewed by ED Physician in the absence of a picker feeder: yes Interpretation: Interpretation: non-specific Rate: ECG rate: 65 ECG rate assessment: normal Rhythm: Rhythm: sinus rhythm Ectopy: Ectopy: none QRS: QRS axis: Normal QRS intervals: Normal QRS conduction: normal ST segments: ST segments: Normal T waves: T waves: normal MDM: Medical Decision Making [facility] complaining of feeling dehydrated and lightheaded. He has been outside in the heat and was walking long distance. Vital signs in the ER been stable. Patient was given 2 L normal saline IV fluid bolus. Lab work was obtained. No electrolyte abnormalities are noted. He had a slight elevation in creatinine from baseline, consistent with dehydration. EKG was un remarkable. Patient is feeli ng better after IV fluids. He is taking oral fluids in the ER as well. He is stable for discharge. I asked him to hydrate aggressively and addressed at this time. He is askin g for a ride to his destinat ion. Charge nurse will talk to the patient about options for getting a ride from the ER. Amount and/or Complexity of Data Reviewed Labs: ordered. Decision-making details documente d in ED Course. ECG/medicine tests: ordered and independent interpretation performed. Decision- making details documented in ED Course. Risk Prescription drug management. Flowsheet Documentation: Scoring Tools: No data recorded Disposition/Condition: ED Disposition ED Disposition Disch - Home Condition Stable Comment -- Discharge Medications: Patient's Medications START taking these medications No medications on file CONTINUE taking these medications which have NOT CHANGED ACETAMINOPHEN 500 MG TABLET Take 2 tablets by m outh every 8 (eight) hours. CALCIUM CARBONATE-VITAMIN D 3 250 MG-3.125 MCG (125 UNIT) PER TABLET Take 1 tablet by mouth in the morning. IBUPROFEN 400 MG TABLET Cathy e 1 tablet by mouth in the morning and 1 tablet at noon and 1 tablet in the evening. Take with meals. SODIUM BICARBONATE 650 MG T ABLET Take 1 tablet by mouth in the morning and 1 tablet at noon and 1 tablet in the evening. VITAMIN B-12 1,000 MCG TABLET Take 2 tablets by mouth in the morning. START taking Modified Medications as Prescribed No medications on file STOP taking these medications No medications on file Follow-up: Contact information for follow-up [facility] [address] [facility], [facility] [address] [facility] [phone] Electronically signed by: Sabi Robledo MD 03/20/23 [id number] Electronically signed by Sabi Robledo MD at 0 03/20/2023 5:24 PM CDT 2023-01-27 [facility] 11:14:00-00:00 [facility] ([facility] EMERGENCY PROVIDER REPORT REPORT#:[id number] REPORT STATUS: Signed DATE:01/27/23 TIME: 1114 PATIENT: HOANG MCNEILL UNIT #: [id number] ROOM/BED: AGE: 52 SEX: M PCP PHYS: No Primary or Family Ph ysician SERVICE AUTHOR: Rickey Cameron MD * ALL edits or amendments must be made on the [employer] Interactive document * HPI-Abd Pain M 40 and Over Free Text HPI Notes Free Text HPI Notes 52-year-old male with histor y of ostomy reversal presents with nausea vomiting. Patient reports he had vomit ing last night and this morning. Also reports lower abdominal pain. He had a normal BM this morning. Denies any chest pain or difficulty breathing. Patient had an ostomy seco ndary to small bowel obstruction, which was recently reserved about 5 months ago, but performed at [facility], patient is unsure of surgeons' n geoffrey. General Initial Greet Date/Time 01/27/23 0901 Presentation Chief Complaint Abdominal pain, Nausea Sudden in Onset? No Review of Systems Focused Review of Systems Constitutional Denies: Fever. Respiratory Denies: Shortness of breath. Cardiovascular Denies: Chest pain, Syncope. GI Reports: Abdominal pain, Nausea, Vomiting. Past Medical History - Adult Stated Complaint NAUSEA, VOMITING Allergies Coded Allergies: No Known Allergies (01/27/23) Home Medications Active Scripts CIPROFLOXACIN (CIPRO) 500 MG PO BID CIPROFLOXACIN (CIPRO) 500 MG PO BID #10 TABS Prov: 07/27/21 ONDANSETRON ODT (ZOFRAN ODT) 4 MG PO Q6H PRN PRN NAUSEA/VOMITING ONDANSETRON ODT (ZOFRAN ODT) 4 MG PO Q6H PRN FL N NAUSEA/VOMITING #15 TABS Prov: 09/23/21 Calculated Suicide Risk (nurs) No risk Additional Medical History bowel obstrution Additional Surgical History bowel resection colsotomy reversal of colostomy Additional Family History Denies Alcohol Use Denies EtOH use Drug Use Denies recreational drugs Smoking status for patients 13 years old or olde r: Former Smoker Other Social History Uses smokeless tobacco Additional Social History Patient is undomiciled Physical Exam Vital Signs Vital Signs First Documented: Result Date Time Pulse Ox 100 01/27 0859 B/P 116/73 01/27 0859 B/P Mean 87 01/27 0859 O2 Delivery Room air 01/28 0859 Temp 36.8 01/27 0859 Pulse 79 01/27 0859 Resp 18 01/27 0859 Last Documented: Result Date Time Temp 36.9 01/27 1452 Pulse Ox 100 01/27 1430 B/P 99/61 01/27 1430 B/P Mean 76 01/27 1430 Pulse 58 01/27 1430 O2 Delivery Room air 01/27 0859 Resp 18 01/27 0859 Review of Vital Signs Reviewed Focused PE General/Const General/Const Awake, Alert, No acute distress, Well appearing Ears/Nose/Throat Mouth Mucous membranes dry. Resp/Chest Respiratory/Chest Breath sounds NL, Breath soun ds = bilat, No respiratory distress Cardiovascular Cardiovascular Heart rate NL, Regular rhythm, H eart sounds NL Abdomen/GI Abdomen/GI Soft, No guarding, No rebound Text/Dict Notes Well-healed vertical abdominal scar. Minimal low er abdominal tenderness. MS Back Back Inspection NL Interpretation Diagnostics Lab Results Interpretation Results Laboratory Tests: 01/27 01/27 01/27 1020 1008 0950 Blood Gas Sodium (134 - 147 mmol/L) 140 Potassium (3.4 - 5.0 mmol/L) 3.1 L Chloride (100 - 108 mmol/L) 106 Ionized Calcium (1.12 - 1.32 MMOL/L) 1.15 Chemistry POC Creatinine (0.8 - 1.3 mg/dL) 1.4 H POC Glucose (mg/dL) (70 - 110 MG/DL) 80 Total Bilirubin (0.0 - 1.0 MG/DL) 0.7 GGT (5 - 85 UNITS/L) 10 AST (15 - 37 IUnit/L) 25 ALT (30 - 65 IUnit/L) 16 L Total Alk Phosphatase (20 - 125 IUNIT/L) 83 Total Protein (5.0 - 8.0 GM/DL) 6.1 Albumin (3.4 - 5.0 g/dL) 3.6 Amylase (25 - 125 UNITS/L) 41 Hematology POC WBC (3.9 - 9.4 10 3/uL) 7.1 POC RBC (4.14 - 5.52 10 6/uL) 3.90 L POC Hgb (11.9 - 16.7 g/dL) 11.2 L POC Hct (36.1 - 49.4 %) 33.8 L POC MCV (83.2 - 96.0 fL) 86.7 POC MCH (27.1 - 32.5 pg) 28.7 POC MCHC (31.0 - 35.8 g/dL) 33.1 POC RDW Coeff of Ori (12.0 - 15.0 %) 15.7 H POC Platelet Count (155 - 330 10 3/uL) 248 POC MPV (8.7 - 12.6 fL) 10.6 POC Mixed Cells % (3.2 - 16.9 %) 8.2 POC Neut # (2.2 - 6.4 10 3/uL) 5.00 POC Lymph # (0.9 - 3.0 k/mm3) 1.50 POC Peach # (0.2 - 1.1 10 3/uL) 0.6 POC Lymphocytes % (16.8 - 42.5 %) 20.8 POC Neutrophils % (46.4 - 74.7 %) 71.0 Recent Impressions: CAT SCAN - CT ABD PELVIS W/CONT 01/27 1045 Report Impression - Status: SIGNED Entered: 01/27/2023 1116 IMPRESSION: 1. Postoperative changes of colectomy with anas tomotic sutures at the sigmoid colon. There is diffuse dilatation of lo ops of small bowel with no obvious transition zone. Differential co nsiderations include ileus versus obstruction. Consider small bowel f ollow-through for further evaluation. 2. Small bowel to small bowel exception of the l eft lower quadrant, likely transient. 3. Circumferential thickening of the bladder. Th is could be due to partial decompression versus cystitis. Correlate with symptoms and urinalysis. Impression By: Pavel Anderson M.D. Re-Evaluation MDM Free Text MDM Notes Free Text MDM Notes 52-year-old male with histor y of ostomy reversal presents with nausea vomiting. Abdominal exam with mild lower abdominal tendern ess. Normal BM this morning, but still consider partial SBO. 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 Obtain blood work, urine, CT scan. Will provide pain co ntrol, antiemetic, IV fluids and reassess )( Re-Evaluation/Progress #1 Text/Dict Note Labs only remarkable for mild hypokalemia, p.o. replacement given. CT with dilation of loops of small bowel, with possible ileus versus obstruction. Discussed results with patient. Will initiate edna ceron back to [facility] for continuity of care, as is that is wh ere patient has had previous abdominal surgeries. Transfer initiated at 1155. ED Course Medication(s) Ordered Medication(s) Ordered: Central Nervous System Agents Sig/Elena Start time Last Medication Dose Route Stop Time Status Admin Ketorolac 15 MG X1ED STA 01/27 0917 DC 01/27 Tromethamine IV 01/27 0918 0928 Diagnostic Agents Sig/Elena Start time Last Medication Dose Route Stop Time Status Admin Iopamidol 75 ML .STK-MED ONE 01/27 1036 DC 06/ 6 IV 01/27 1037 1036 Electrolytic, Caloric, And Yovanny Sig/Elena Start time Last Medication Dose Route Stop Time Status Admin Potassium Chloride 40 MEQ X1ED STA 01/27 1018 D C 01/27 PO 01/27 1019 1025 Sodium Chloride 1,000 ML X1ED STA 01/27 0917 DC 01/27 IV 01/27 1016 0928 Gastrointestinal Drugs Sig/Elena Start time Last Medication Dose Route Stop Time Status Admin Ondansetron HCl 4 MG X1ED STA 01/27 1018 DC / PO 01/27 1019 1025 Patient Discharge Departure Vital Signs/Condition Vital Signs First Documented: Result Date Time Pulse Ox 100 / 0859 B/P 116/73 01/27 0859 B/P Mean 87 01/27 0859 O2 Delivery Room air 01/27 0859 Temp 36.8 / 0859 Pulse 79 /06 0859 Resp 18 / 0859 Last Documented: Result Date Time Temp 36.9 01/27 1452 Pulse Ox 100 / 1430 B/P 99/61 / 1430 B/P Mean 76 /06 1430 Pulse 58 /06 1430 O2 Delivery Room air 01/27 0859 Resp 18 / 0859 All vital signs available at the time of this en try have been reviewed. Clinical Impression Clinical Impression Primary Impression: Small bowel obstruction Secondary Impressions: Hypokalemia, Vomiting Disposition Decision Transfer )( Request Time 1155 )( Request Date 01/27/23 Spoke with: [facility] Bern[facility] Ochoa Transfer Accepted Yes Accepted by: [facility] )( Acceptance Time 1255 )( Acceptance Date 01/27/23 Transfer Reason CONTINUITY OF CARE Patient Status Stable for transfer Patient Informed Yes Consent Obtained yes Consent Signed by: patient Discharge/Care Plan Counseled Regarding Diagnosis, Lab resul ts, Imaging studies, Need for transfer at 1457 RPT #:[id number] END OF REPORT 2022-03-29 [facility] 14:35:00-00:00 [facility] ([facility] EMERGENCY PROVIDER REPORT REPORT#:[id number] REPORT STATUS: Signed DATE:03/29/22 TIME: 1435 PATIENT: HOANG MCNEILL UNIT #: [id number] ROOM/BED: AGE: 52 SEX: M PCP PHYS: No Primary or Family Ph ysician SERVICE AUTHOR: Sabi Urias MD * ALL edits or amendments must be made on the Style [employer]/computer document * HPI-General Illness General Confirmed Patient Yes Patient Type New patient Initial Greet Date/Time 03/29/22 1427 Presentation Chief Complaint Fatigue, Heat Exhaustion Hx Obtained From Patient Sudden in Onset? No Onset Occurred Yesterday, Chronic Symptom Duration Constant Progression since Onset Gradually worsening Free Text HPI Notes Free Text HPI Notes 52-year-old male patient with a past medical his tory of colon resection with current colostomy, that is well-known to this [facility] as being homeless and living with in view of this facility, reports to the freestanding emergency department complaint of gene ralized fatigue and heat exhaustion and reports that he feels dehydrated. Patient denies inju ry, fever, chills, vomiting, diarrhea. Patient reports that he has been walking around a lot outside the general [place] area and feels like he is at too much sun exposu re. Patient denies headache, focal deficit, chest pain, s hortness of breath patient presents with a backpack in a sleeping bag. Review of Systems ROS Statements All systems rev neg except as marked. Review of Systems Constitutional Reports: Malaise. Respiratory Denies: Shortness of breath. Cardiovascular Denies: Chest pain. Past Medical History - Adult Stated Complaint FATIGUE Allergies Coded Allergies: No Known Allergies (07/22/21) Home Medications Active Scripts CIPROFLOXACIN (CIPRO) 500 MG PO BID CIPROFLOXACIN (CIPRO) 500 MG PO BID #10 TABS Prov: 07/27/21 ONDANSETRON ODT (ZOFRAN ODT) 4 MG PO Q6H PRN PRN NAUSEA/VOMITING ONDANSETRON ODT (ZOFRAN ODT) 4 MG PO Q6H PRN FL N NAUSEA/VOMITING #15 TABS Prov: 09/23/21 Additional Medical History bowel obstrution Additional Surgical History bowel resection colsotomy reversal of colostomy Additional Family History Denies Alcohol Use Denies EtOH use Drug Use Denies recreational drugs Smoking status for patients 13 years old or olde r: Unknown,if ever smoked Other Social History Uses smokeless tobacco Additional Social History Patient is undomiciled Physical Exam Vital Signs Vital Signs First Documented: Result Date Time Pulse Ox 99 08/06 1427 B/P 108/66 08/06 1427 B/P Mean 80 08/06 1427 O2 Delivery Room air 08/ 1427 Temp 36.6 08/06 1427 Pulse 85 08/06 1427 Resp 16 08/06 1427 Last Documented: Result Date Time Pulse Ox 99 08/06 1427 B/P 108/66 08/06 1427 B/P Mean 80 08/06 1427 O2 Delivery Room air 08/06 1427 Temp 36.6 08/06 1427 Pulse 85 08/06 1427 Resp 16 08/06 1427 Review of Vital Signs Reviewed Physical Exam General/Const General/Const Awake, Alert, Well appearing MS Head Head Normocephalic Eyes Eyes Atraumatic, PERRL, EOMI Ears/Nose/Throat Ears/Nose/Throat Airway patent, Mucous membrane s moist, Pharynx NL MS Neck Neck Supple, No meningismus, Full range of becca on, No swelling, Non-tender, No masses Resp/Chest Respiratory/Chest Breath sounds NL, Breath soun ds = bilat, No respiratory distress, No rales, No rhonchi, No wheezing Cardiovascular Cardiovascular Heart rate NL, Regular r hythm, Heart sounds NL, Cap refill not delayed, Peripheral circulation NL Abdomen/GI Abdomen/GI Atraumatic, Soft, Non-tender Text/Dict Notes Patent, normal appearing right lower quadrant co lostomy free of signs and symptoms of infection. MS Back Back Inspection NL, Painless range of motion, N on-tender, No CVA tenderness MS Upper Extrem Upper Extremity/MS Inspection NL, No swelling, Non-tender, No erythema, No deformity, Neurologic intact, Vascular intact, N o clubbing/cyanosis MS Lower Extrem Lower Ext/Pelvis/MS Inspection NL, No swelling, Non-tender, No erythema, No deformity, Neurologic intact, Vascular intact, N o edema Skin Text/Dict Notes Skin is very tanned from sun exposure. Neurologic Neurologic Oriented X3, Speech NL, No motor def icits, No sensory deficits Psychiatric Psychiatric Affect NL, Mood NL, Thought content NL Interpretation Diagnostics Lab Results Interpretation Results Laboratory Tests: 03/29 03/29 1455 1454 Blood Gas Sodium (134 - 147 MEQ/L) 131 L Potassium (3.4 - 5.0 MEQ/L) 3.5 Chloride (100 - 108 MEQ/L) 94 L Ionized Calcium (1.12 - 1.32 MMOL/L) 1.12 Chemistry POC Creatinine (0.8 - 1.3 mg/dL) 1.7 H POC Glucose (mg/dL) (70 - 110 MG/DL) 106 Rapid Troponin I (0.00 - 0.08 ng/mL) 0.00 Recent Impressions: RADIOLOGY - XR CHEST 1 V 03/29 1501 Report Impression - Status: SIGNED Entered: 03/29/2022 1531 IMPRESSION: COPD. Impression By: Dorian Bailey M.D. ECG #1 Interpretation Text/Dict Note EKG performed at 1430 and re ad by me at 1435. EKG is normal sinus rhythm with a ventricular rate of 75. There is no acute ischem ic changes consistent with STEMI. Re-Evaluation MDM ED Course Medication(s) Ordered Medication(s) Ordered: Electrolytic, Caloric, And Yovanny Sig/Elena Start time Last Medication Dose Route Stop Time Status Admin Sodium Chloride 1,000 ML X1ED STA 03/29 1428 DC 03/29 IV 03/29 1527 1449 Patient Discharge Departure Vital Signs/Condition Vital Signs First Documented: Result Date Time Pulse Ox 99 03/29 1427 B/P 108/66 03/29 1427 B/P Mean 80 03/29 1427 O2 Delivery Room air 03/297 Temp 36.6 03/29 1427 Pulse 85 03/29 1427 Resp 16 03/29 1427 Last Documented: Result Date Time Pulse Ox 99 03/29 1427 B/P 108/66 / 1427 B/P Mean 80 / 1427 O2 Delivery Room air 03/29 1427 Temp 36.6 03/29 1427 Pulse 85 / 1427 Resp 16 03/29 1427 All vital signs available at the time of this en try have been reviewed. Clinical Impression Clinical Impression Primary Impression: Heat exhaustion Secondary Impressions: Homelessness Disposition Decision Discharge )( Discharged to Home Yes )( Time 1641 )( Date 03/29/22 Discharge/Care Plan Counseled Regarding Diagnosi s, Lab results, Imaging studies, Need for follow-up, When to return to ED Patient Instructions ED Heat Exhaustion Discharge Note I have spoken with the patie nt and/or caregivers. I have explained the patient's condition, diagnoses and phillip atment plan based on the information available to me at this time. I have answered the patient's and/ or caregiver's questions and addressed any concerns. The patient and/or careg piyush have as good an understanding of the patient 's diagnosis, condition and treatment plan as can be expected at this point. The vital signs have bee n stable. The patient's condition is stable and appr opriate for discharge from the emergency department. The patient will pursue further outpatient evalu ation with the primary care physician or other designated or consulting phys ician as outlined in the discharge instructions. The patient and/or caregivers are agreeable to this plan of care and follow-up instructions have been exp lained in detail. The patient and/or caregivers have received these instructio ns in written format and have expressed an understanding of the discharge inst ructions. The patient and/or caregivers are aware that any significant change in condition or worsening of symptoms should prompt an immediate return to [facility] or the closest emergency department or a call to 911. Electronically Signed by Sabi Urias MD on 0 03/29/22 at 1753 RPT #:[id number] END OF REPORT 2022-03-13 Formatting of this note might be differe nt from the original. Sammi Carbajal RN [facility] 20:23:38-00:00 Dora Mcneill called [facility] waiting room and did not answer x 3. Patient name paged overhead within Emergency Department without response. Waiting room, ED care areas, and restrooms visualized and patient not found. System Electronically signed by Sammi Carbajal RN a t 03/13/2022 8:23 PM CDT 2022-03-13 Formatting of this note might be differe nt from the original. 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 Clemencia Arcos [facility] 11:47:00-00:00 Patient AVS and discharge in structions were given verbally and written, pt demonstrated understanding. Pt left walking with all belongings. No signs of distress noted at the time is discharge. RN Syst em Clemencia Arcos RN [id number] Problem: Hospital Acquired Venous [place]rombo[place] m (VTE) Goal: Absence of Hospital Acquired VTE (DVT or P E) Description: Patient will no t develop VTE (DVT or PE) during the hospital stay. Outcome: Resolved Problem: Knowledge Deficit Goal: Increase Understanding of Causes and Management of Disease Process and Treatments Description: Patient will be educated with accurate information, demonstrate knowledge and skills regarding the disease process, and the diagnostic and therapeutic plan. Outcome: Resolved Problem: Pain - Acute Goal: An Acceptable Level Of Comfort Description: Patient will momin ve adequate relief of pain, be able to cope with unrelieved pain using pharmacological and non-pharmacological methods and be able to perform desired activities. Outcome: Resolved Problem: Falls / Injury Goal: Absence of fall or injury Description: Refer to the Documentation Flowshee t for Interventions. Outcome: Resolved Problem: Infection Goal: Signs and symptoms of infections are decre ased or avoided Outcome: Resolved Problem: Healing Environment Goal: Provide A Physical Env ironment Affirmed By The Patient To Be Safe And Comfortable Outcome: Resolved Goal: Identify The Patient's Healing Goal Outcome: Resolved Goal: Identify Traditional / Cultural Healing Pr actice (s) Outcome: Resolved Problem: Relationship Based Care Goal: Develop / Initiate The Interdisciplinary P rigo For Discharge Outcome: Resolved Goal: Identify Support Systems Outcome: Resolved Goal: Patient / Family / S.O . Are Supportive And Accepting Of The Established Care Goals Outcome: Resolved Problem: Culturally Responsive Care Goal: Provide Culturally Competent Care Outcome: Resolved Problem: Standards Of Nursing Care Goal: Maintain Standards Of Nursing Care Description: * Verify Care M eets Standards For Assessment And Management Of Patient Status, Medications And Treatment, Safety, And Education. * Care Reviewed Regarding: > Education Of Patient, Family, S.O. > Verify Understanding Of Ca uses, Treatment And Follow-Up Care Related To Disease Process. > Administration And Coordination Of Med ications And Treatments As Prescribed. > Assessment, Evaluation And Communication Of Status As Indicated By: Patient Condition, Treatment And / Or Patient Response. > Comfort Measures As Indica dain By: Patient Subjective And Objective Responses. Outcome: Resolved 2022-02-20 Formatting of this note is different fro m the original. Bao Goodman RN [facility] 08:11:24-00:00 System 02/20/22 0811 Intervention Coordination of Care Multidisciplinary team Disease Management Meets criteria for Inpatient Medical Necessity Screening Admission review 02/20/22 0810 Hospital Review- Suggested Patient Class- Enter a Bed Request for Patient Suggested Patient Class Inpatient Level of Care: Acute (Inpatient-Floor) Classification: Med Isolation: None Hospital Review Review # [id number] Hospital Review- Team/Provider Assigned Team Assigned Eleanor Slater Hospitalist Hospitalist Team 2 Admitting Provider Name Jackie Joy Admitting Provider ID [id number] [facility] converting pt . from observation status to inpatient if pt. Is not discharging today. Pt. is on continuous IVF. CNCM spoke to [facility] 2. 1102 : Central supply form l eft in Hard chart. Primary nurse will fill ostomy supplies. CONTRACTOR BUYER notified. Will complete consult. ZACARIASM will continue to follow and collaborate wit h the interdisciplinary team. Please contact the BRITTNY balbuena or Application Support for any discharge needs. Thank you, Bao Goodman MSN, MONA, RN, CCRN Clinical Nurse Lubrication Servicer [facility] RIYA : [phone] OFFICE : [phone] Electronically signed by Bao Goodman RN at 11:03 AM CDT 2022-02-20 Formatting of this note might be differe nt from the original. Ashley Almonte RN [facility] 01:57:50-00:00 System Problem: Falls / Injury Goal: Absence of fall or injury Description: Refer to the Documentation Flowshee t for Interventions. Outcome: Met This Shift Note: Bed at lowest level, b ed alarm on and patient encouraged to wear non-skid socks on. Patient experienced no falls during my shift. Problem: Standards Of Nursing Care Goal: Maintain Standards Of Nursing Care Description: * Verify Care M eets Standards For Assessment And Management Of Patient Status, Medications And Treatment, Safety, And Education. * Care Reviewed Regarding: > Education Of Patient, Family, S.O. > Verify Understanding Of Ca uses, Treatment And Follow-Up Care Related To Disease Process. > Administration And Coordination Of Med ications And Treatments As Prescribed. > Assessment, Evaluation And Communication Of Status As Indicated By: Patient Condition, Treatment And / Or Patient Response. > Comfort Measures As Indica dain By: Patient Subjective And Objective Responses. Outcome: Met This Shift [facility] 2022-02-19 Formatting of this note might be differe nt from the original. Nathaly Cm [facility] 18:04:19-00:00 System Problem: Pain - Acute Goal: An Acceptable Level Of Comfort Description: Patient will momin ve adequate relief of pain, be able to cope with unrelieved pain using pharmacological and non-pharmacological methods and be able to perform desired activities. Outcome: Met This Shift Note: pt assessed for pain, provided pain meds per order, monitored for side effects of meds. pt denies pain at the end of the shift. Problem: Falls / Injury Goal: Absence of fall or injury Description: Refer to the Documentation Flowshee t for Interventions. Outcome: Met This Shift Note: No falls during the shift. A ssessed & spoke to patient about fall preventions. Bed alarm on, bed at lowest position, call light within reach. Yellow sock on. Problem: Infection Goal: Signs and symptoms of infections are decre ased or avoided Outcome: Met This Shift Note: Educated pt on the [facility] pf performing hand hygiene. No sign of infection noted at the ostomy site. Will continue to monitor Electronically signed by Nathaly Cm 02/19/2022 6:04 PM CDT 2022-02-19 [facility] 15:42:00-00:00 Pt arrived in unit via stret jerica. Pt AOX4. Denies pain and discomforts. No distress noted at this time. Will continue to monitor. System Electronically signed by Nathaly Cm 02/19/2022 5:08 PM CDT 2022-02-19 Formatting of this note might be differe nt from the original. Abiola Barnett [facility] 12:01:59-00:00 Pt in bed sleeping supine. R espirations unlabored with equal chest rise and fall. Vitals are stable. Pt has no medical complaints at this time. Meds admin per orders. Bed locked and lowered. Awaitng further orders. System Electronically signed by Abiola Barnett at 0 02/19/2022 12:06 PM CDT 2022-02-19 [facility] 08:08:44-00:00 Assumed care of Dora Paezry 52 y.o male. Reason for visit: Needs supplies for illiostomy. System Pt AOX3, PT confirms name an d with arm band. When asked do you know where you are? pt states " [facility]". When asked what day it is? pt states "Thursday" Do you know who the current president is? Pt states I don't like h im but is unable to state name. Reports it is hard for him to keep up with these questions due to being homeless. Pt reports prolapsed stoma since last procedure in 2000. Sto ma is pink with continuous l iquid output and gas. No swelling or irritation noted. PT denies SOB, difficulty breathing. Respirations unlabored with equal chest rise and fall. Cap refill <3 x4 extremi ties and pulses +2 x4 extrem ities. Pt reports being able to move around w/o assistance, unable to assess gait at this time. PT connected to monitor, vitals documented. Awaiting further orders. Electronically signed by Abiola Barnett at 0 02/19/2022 10:46 AM CDT 2022-02-19 Formatting of this note might be differe nt from the original. Sabi Jose [facility] 04:55:54-00:00 Awaiting Midline placement for 4am labs at this time. System Electronically signed by Sabi Jose at 01/23 4:56 AM CDT 2022-02-19 [facility] 04:30:00-00:00 Pt is a 52YOM with a PMhx of colostomy, homelessness. Pt presents to the with a c/o hypotension, protruding stoma, and colostomy supplies. Pt has been downgraded from SR. At this time Pt's blood pres System sure is stable- No abnormali ties noted on Pt's stoma at this time. Pt denies pain and other complaints. Pt states that he did not have a bag over stoma due to the previous one being "dirty" Per Pt. Pt's stoma was prolapsed on admi ssion and reduced without issue. On exam Pt is disheveled in appearance, in NAD, with VSS. Pt's respirations are even and unlabored. Pt's peripheral pulses are intact. Pt's a bdomen is non-distended. Pt' s skin is warm dry and intact. Pt is on NIBP, 02 and cardiac monitoring. Awaiting admission. Electronically signed by Sabi Jose at 01/23 4:55 AM CDT 2022-02-19 [facility] 03:00:00-00:[address] retcher, airway patent, breathing equal and unlabored, circulation intact. NAD, VSS. Pt continues to deny any N/V dizziness, MOMIN, CP or SOB. Currently awaiting bed assignment System and midline placement. AM la bs to be drawn from midline when placed. Transferred to A 10 at this time. Handoff report given to Sabi MART. 2022-02-18 [facility] 23:06:00-00:[address] retcher, airway patent, breathing equal and unlabored, circulation intact. NAD, VSS. Currently awaiting midline placement and bed assignment. System 2022-02-18 [facility] 21:13:12-00:00 Page returned from admit pro vider. Per Lou CAPONE, no need for blood cultures or repeat lactic at this time. Pending midline order for any further lab draws. System 2022-02-18 [facility] 20:36:02-00:00 Rounded with admitting provi estevan regarding blood culture order. Recommended midline placement for access and blood sample collection due to multiple failed attempts to obtain cultures. Pending response at this time. System 2022-02-18 [facility] 19:20:00-00:00 Assumed care of pt. Identifi ed by first and last name, and . A&Ox4. Airway intact, breathing equal and unlabored,circulation intact. NAD, VSS. Pt denies dizziness, MOMIN, N/V, or any pain or discomf System ort at this time. Maintains belongings at the bedside at this time. Awaiting bed assignment. 2022-02-18 Formatting of this note might be differe nt from the original. Sukhwinder Bradley [facility] 18:50:00-00:00 Unable to obtain cultures or lactic at this time. MD Palacios notified. stated he would attempt US for second IV access and lactic. Blood cultures not needed at this time. System Electronically signed by Sukhwinder Bradley at 022 7:04 PM CDT 2022-02-18 Formatting of this note is different from the or iginal. [facility] 15:50:15-00:00 System 02/18/22 1546 Referral Data Referral Reason Housing SW responded to consult for: Durable Medical Equipment/Home Health HH (DME in cluding Oxygen) Discharge Planning What equipment or services are needed Misc. Item s MISC Items Options Comments Patient needs ostomy supplies SW met with pt in [facility]03, introduced self, and brayden son for consult. Pt identified by using two pt identifiers: name and . Pt declined providing an phoebe rgency contact. Pt shared he has been homeless for approximately 5 years. Pt stated he does not receive SSI/SSDI at this time and has no income. Pt plans to d/c to self. Pt open to resources. SW pro vided prison and drop-in center resources to [employer], [employer], [place], [employer], and [employer]. [facility] RN ext, [phone] aware of o stomy supply request. - please contact dept for updates. .No further social psychologist identified, SW remains available to assist as needed. .Carly Soto, [facility] #[id number] [place] [id number] Electronically signed by Carly Soto at 2021 4:01 PM CDT 2022-02-18 Formatting of this note is different from the or iginal. [facility] 15:46:03-00:00 System History Chief Complaint Patient presents with Supplies Request Colostomy bag, prolapsed "for years" Rib Pain Left; denies trauma/injury Dizziness Mr. Dora Mcneill is a 52yo w/ PMH Homelessness and SBO s/p colostomy who pres to the ED for dizziness, worsening ostomy prolapse, and need for ostomy supplies. Also reports some left sided rib pain, wh ich he believes may be secon leona to sleeping on concrete. Patient was upgraded to shocks for hypotension. Patient denies other complaints and reports he's been eating and drinking well. Reports he remov ed last ostomy bag because i t was turning black; arrived with prolapsed ostomy being held/draining into a cup. Prolapse reduced at bedside without difficulty. History provided by: Patient gaming manager used: No Illness Severity: Unable to specify Onset quality: Unable to specify Timing: Unable to specify Progression: Unable to specify Associated symptoms: abdominal pain and nausea Associated symptoms: no ches t pain, no congestion, no cough, no fever, no headaches, no myalgias, no rash, no rhinorrhea, no shortness of breath, no sore throat and no vomiting Medical History Past Medical History Date Comments Homelessness [Z59.00] 04/10/2017 Thyroid disease [E07.9] 2012 Alcohol abuse [F10.10] sober since 04/06/2017 Surgical History Past Surgical History Laterality Date Comments HX COLOSTOMY [SHX63] Lateral Right Since 11/2016 Family Medical History None Social History Tobacco History Smoking Status Never Smoker Smokeless Tobacco Use Current User Alcohol History Alcohol Use Status Yes Drug Use Drug Use Status No Sexual Activity Sexually Active Not Asked Activities of Daily Living Not Asked Review of Systems Constitutional: Negative for chills and fever. HENT: Negative for congestion, rhinorrhea and so re throat. Eyes: Negative for pain and redness. Respiratory: Negative for cough and shortness of breath. Cardiovascular: Negative for chest pain and palp itations. Gastrointestinal: Positive f or abdominal pain and nausea. Negative for vomiting. Genitourinary: Negative for dysuria and frequenc y. Musculoskeletal: Negative for back pain and myal gias. Skin: Negative for rash and wound. Neurological: Positive for dizziness. Negative f or headaches. Psychiatric/Behavioral: Negative for agitation a nd behavioral problems. Physical Exam BP 117/72 | Pulse 96 | Temp 98.5 F (36.9 C) | Resp 18 | SpO2 99% Physical Exam Vitals reviewed. Constitutional: Appearance: He is normal we ight. He is not ill-appearing, toxic-appearing or diaphoretic. Comments: Disheveled HENT: Head: Normocephalic and atraumatic. Left Ear: External ear normal. Nose: Nose normal. No rhinorrhea. Mouth/Throat: Mouth: Mucous membranes are moist. Pharynx: Oropharynx is todd r. No oropharyngeal exudate or posterior oropharyngeal erythema. Eyes: General: No scleral icterus. Right eye: No discharge. Left eye: No discharge. Extraocular Movements: Extraocular movements in tact. Conjunctiva/sclera: Conjunctivae normal. Pupils: Pupils are equal, round, and reactive t o light. Cardiovascular: Rate and Rhythm: Normal rate and regular rhythm . Pulses: Normal pulses. Heart sounds: Normal heart sounds. No murmur he margie. No gallop. Pulmonary: Effort: Pulmonary effort is normal. No respirat ory distress. Breath sounds: Normal breath sounds. No wheezin g. Abdominal: General: Bowel sounds are normal. There is no d istension. Palpations: Abdomen is soft. Tenderness: There is no abd ominal tenderness. There is no guarding or rebound. Comments: Surgical scars. Right sided ostomy pr olapse Musculoskeletal: General: Tenderness (left l ateral lower ribs) present. Normal range of motion. Cervical back: Normal range of motion and neck supple. No rigidity. No muscular tenderness. Right lower leg: No edema. Left lower leg: No edema. Lymphadenopathy: Cervical: No cervical adenopathy. Skin: General: Skin is warm and dry. Capillary Refill: Capillary refill takes less t duckworth 2 seconds. Coloration: Skin is not jaundiced. Findings: No bruising. Neurological: General: No focal deficit present. Mental Status: He is alert and oriented to person, place, and time. Mental status is at baseline. Psychiatric: Mood and Affect: Mood normal. Behavior: Behavior normal. Procedures Procedures ED Course ED Course as of 02/19/22 1522 ThuFeb 18, 2022 1420 Pending labs, reassessm ent; D/c home if lactate normal and BP stable. PMH SBO approx 7 yrs ago s/p ostomy creation. Pres w/ left rib pain and worsening ostomy prolapse. + some dizziness. Prolapse reduced at bedside. [LB] 1512 Pend labs, r/a, d/c sung e w/ ostomy supplies if everything normal, 52M here left sided rib pain, ostomy prolapse, hypotensive [BW] 1544 Anion Gap(!): 19 [BW] 1545 Creatinine(!): 2.6 [BW] 2313 Adm to med for ALMA H/o SBO here for ostomy prolapse [TA] ThuFeb 19, 2022 1521 Admitted to medicine for ALMA. [LB] ED Course User Index [BW] Chadd Palacios ResidentMD [LB] Roz Scales ResidentMD [TA] Antoine Vasquez ResidentMD MDM Number of Diagnoses or Management Options ALMA (acute kidney injury): new, needed workup Encounter for ostomy care education: new, needed workup Hypotension, unspecified hypotension type: new, needed workup Amount and/or Complexity of Data Reviewed Clinical lab tests: ordered and reviewed Tests in the radiology section of CPT: ordered Risk of Complications, Morbidity, and/or Mortali ty Presenting problems: moderate Diagnostic procedures: low Management options: low Clinical Impression 1. Encounter for ostomy care education 2. Hypotension, unspecified hypotension type 3. ALMA (acute kidney injury) Assessment: 52y.o. male w/ PMH Homelessn ess and SBO s/p colostomy who pres to the ED for dizziness, worsening ostomy prolapse, and need for ostomy supplies. Also reports some left sided rib pain, which he believes may be secondary to sleeping on concrete. PE significant for left lower lateral rib ttp and prolapse of colostomy approx 6cm. DDx includes but is not limited to ostomy prolapse, dehydration, infection, electrolyte abnormality, rhabdomyolysis. - ALMA noted on labs Plan: Labs: - CBC, BMP, Mg, Phos, CK Results for orders placed or performed during the hospital encounter of 02/18/22 Basic Metabolic Panel Result Value Ref Range Sodium 131 (L) 136 - 145 mmol/L Potassium 4.8 3.5 - 5.1 mmol/L Chloride 94 (L) 98 - 107 mmol/L CO2 18 (L) 21 - 31 mmol/L Urea Nitrogen 40.4 (H) 7.0 - 25.0 mg/dL Creatinine 2.6 (H) 0.7 - 1.3 mg/dL Glucose 94 70 - 110 mg/dL Calcium 10.3 8.6 - 10.3 mg/dL eGFR If Am 31 (L) >=90 mL/min/1.73 m2 eGFR If non- Am 27 (L) >=90 mL/min/1.73 m2 Anion Gap 19 (H) 5 - 16 mmol/L Magnesium Result Value Ref Range Magnesium 2.1 1.9 - 2.7 mg/dL Phosphorus Result Value Ref Range Phosphorus 7.0 (H) 2.5 - 5.0 mg/dL CK [Creatinine Kinase] Result Value Ref Range CK 119 30 - 223 U/L CBC/Diff Result Value Ref Range WBC 10.6 4.5 - 12.0 10*3/uL RBC 4.74 4.60 - 6.20 10*6/uL Hemoglobin 13.0 (L) 14.0 - 18.0 g/dL Hematocrit 40.6 40.0 - 54.0 % MCV 85.7 82.0 - 92.0 fL MCH 27.4 27.0 - 31.0 pg MCHC 32.0 32.0 - 36.0 g/dL RDW 53.0 (H) 35.1 - 43.9 fL Platelet 368 150 - 400 10*3/uL Mean Platelet Volume 10.7 9.4 - 12.4 fL Percent NRBC 0.0 0.0 - 0.0 % Neutrophil 65.1 34.0 - 67.9 % Lymphs 24.7 21.8 - 50.0 % Monocytes 8.5 5.3 - 12.0 % Eos 0.5 (L) 0.8 - 5.0 % Basos 0.7 0.2 - 1.2 % Immature Granulocytes 0.5 0.0 - 0.5 % Neutrophils (Absolute) 6.88 (H) 1.78 - 5.36 10* 3/uL Lymphs (Absolute) 2.61 1.32 - 3.57 10*3/uL Monocytes(Absolute) 0.90 (H) 0.30 - 0.82 10*3/u L Eos (Absolute) 0.05 0.04 - 0.54 10*3/uL Baso (Absolute) 0.07 0.01 - 0.08 10*3/uL Immature Grans (Abs) 0.05 (H) 0.00 - 0.03 10*3/ uL Absolute NRBC 0.00 0.00 - 0.11 10*3/uL Imaging and other workup: - XRAY CHEST 1 VIEW Final Result IMPRESSION: No acute thoracic radiographic abnormality. A "PRELIMINARY" report was made available via EP IC at the time of dictation by the resident indicated below. If th e report is described as "FINALIZED" it indicates the attending/staff rad iologist below has reviewed the images and agrees with the resident 's interpretation. Dictated By: Jian Dudley MD, 02/18/2022 3:32 PM I have reviewed the study and agree with the [place]var[place] bridges in this report. Signed By: Gunnar Pitt MD, 02/18/2022 3:41 PM Intervention: - Bolus 1L IVF, PO tylenol Consultation: - None Disposition: - Hospitalize with the foll wing plan of care: IV fluids and further evaluation and management Roz Scales MD Emergency Medicine Resident February 18, 2022 3:59 PM Roz Scales I, ResidentWA Resident 02/18/22 1601 PROVIDER REASSESSMENT NOTE I reexamined the patient Dora Mcneill. Latest vital signs are: Vitals: 02/18/22 1351 02/18/22 1353 02/18/22 1354 02/18 1402 BP: (!) 75/56 89/58 (!) 76/47 117/72 Pulse: 96 Resp: 18 Temp: 98.5 F (36.9 C) SpO2: 99% Interval Progress: labs nota ble for ALMA. Will admit to medicine for further workup. The patient s condition is stable. Current clinical impressions include: 1. Encounter for ostomy care education 2. Hypotension, unspecified hypotension type 3. ALMA (acute kidney injury) Plan: [facility] with the [facility] plan of care: IV fluids and further evaluation and management Luz Monk February 18, 2022 7:05 PM Chadd Palacios ResidentMD Resident 02/18/22 1905 Electronically signed by Mitzi Carbajal MD a t 02/19/2022 3:11 PM CDT Associated attestation - Mitzi Carbajal MD - 02/19/2022 3:11 PM CDT Please see my separate attestation note. 3:11 PM February 19, 2022 Mitzi Carbajal M.D. [employer] Supervisor [facility] #[id number] [facility] 15:30:00-00:00 Unable to obtain further PIV access at this time x2 nurses MD aware System Electronically signed by Sukhwinder Bradley at 022 7:13 PM CDT 2022-02-18 Formatting of this note is different from the or iginal. [facility] 15:17:08-00:00 Faculty Addendum System Briefly, Dora Mcneill is a 52y.o. male with colostomy d/t SBO, BPH, homelessness who is here for colostomy supplies and sent to critical care for low BP. On arrival to the , the patient's BP rem ains stable. Abdomen is soft . Stoma was protruded but was reduced successfully. If basic labs and CK are normal and the patient gets supplies, he can be discharged home. Exam: Vitals: 02/18/22 1351 02/18/22 1353 02/18/22 1354 02/18 1402 BP: (!) 75/56 89/58 (!) 76/47 117/72 Pulse: 96 Resp: 18 Temp: 98.5 F (36.9 C) SpO2: 99% I personally examined Dora Mcneill with the res ident. I agree with all the compone nts of the exam as delineated in the resident's note above. I have personally reviewed t he past medical records, current lab results and radiology results. I have discussed his case with the resident and agree with the diagnosis of 1. Encounter for ostomy care education 2. Hypotension, unspecified hypotension type Impression/Plan: _ As discussed in the resident's note. -- Mitzi Carbajal MD [facility] #[id number] Mitzi Carbajal MD 02/18/22 1521 Electronically signed by Mitzi Carbajal MD a t 02/18/2022 3:21 PM CDT 2022-02-18 Formatting of this note is different from the or iginal. Carly Soto [facility] 14:56:11-00:00 SW received consult for: System Comments Patient needs ostomy supplies SW notified [facility] Rn ext.[phone] .Carly Soto LCSW #[id number] [place] [id number] Electronically signed by Carly Soto at 2021 2:57 PM CDT 2022-02-18 Formatting of this note might be differe nt from the original. Gwen Recinos [facility] 13:59:48-00:00 Dora Mcneill is a 52y. o. male who presents to BIB EMS for hypotension, SBPs of 70s on arrival. Pt also c/o worsening protruding stoma. GCS 15. AAOx4. Speech clear and appropriate. NAD. ABC inta Marian RN System ct. Resp even and unlabored. Skin warm and dry with color appropriate to ethnicity. FROMx4. Pt on monitor. EC team at bedside for eval. Will continue to follow. 2022-02-11 Formatting of this note might be differe nt from the original. Tamera Rodarte [facility] 04:11:24-00:00 System Problem: Healing Environment Goal: Provide A Physical Env ironment Affirmed By The Patient To Be Safe And Comfortable Outcome: Met This Shift Goal: Identify The Patient's Healing Goal Outcome: Met This Shift Goal: Identify Traditional / Cultural Healing Pr actice (s) Outcome: Met This Shift Problem: Culturally Responsive Care Goal: Provide Culturally Competent Care Outcome: Met This Shift Problem: Standards Of Nursing Care Goal: Maintain Standards Of Nursing Care Description: * Verify Care M eets Standards For Assessment And Management Of Patient Status, Medications And Treatment, Safety, And Education. * Care Reviewed Regarding: > Education Of Patient, Family, S.O. > Verify Understanding Of Ca uses, Treatment And Follow-Up Care Related To Disease Process. > Administration And Coordination Of Med ications And Treatments As Prescribed. > Assessment, Evaluation And Communication Of Status As Indicated By: Patient Condition, Treatment And / Or Patient Response. > Comfort Measures As Indica dain By: Patient Subjective And Objective Responses. Outcome: Met This Shift Problem: Falls / Injury Goal: Absence of fall or injury Description: Refer to the Documentation Flowshee t for Interventions. Outcome: Met This Shift Problem: Alteration In Fluid Volume Goal: Fluid And Electrolytes Will Remain In Dc nce Description: Patient will maintain fluid and donna ctrolyte homeostasis. Vital signs, weight, skin tu rgor, and mucous membranes will remain stable within defined limits. Outcome: Met This Shift Problem: Altered Patterns Of Bowel Habits Goal: Bowel Patterns Will Return To Baseline Description: Patient will ma intain regular bowel habits without symptoms of gastrointestinal bleeding, or irregular bowel patterns (i.e., constipation or diarrhea) Outcome: Met This Shift Electronically signed by Tamera Rodarte at 01/23 4:11 AM CDT 2022-02-10 [facility] 03:26:33-00:00 System Problem: Healing Environment Goal: Provide A Physical Env ironment Affirmed By The Patient To Be Safe And Comfortable Outcome: Met This Shift Problem: Falls / Injury Goal: Absence of fall or injury Description: Refer to the Documentation Flowshee t for Interventions. Outcome: Met This Shift Problem: Alteration In Fluid Volume Goal: Fluid And Electrolytes Will Remain In Dc nce Description: Patient will maintain fluid and donna ctrolyte homeostasis. Vital signs, weight, skin tu rgor, and mucous membranes will remain stable within defined limits. Outcome: Met This Shift Problem: Altered Patterns Of Bowel Habits Goal: Bowel Patterns Will Return To Baseline Description: Patient will ma intain regular bowel habits without symptoms of gastrointestinal bleeding, or irregular bowel patterns (i.e., constipation or diarrhea) Outcome: Met This Shift 2022-02-10 Formatting of this note is different fro m the original. Elisa Clayton [facility] 02:12:58-00:00 Suraj RN System 02/10/22 0212 Intervention Disease Management Meets criteria for Inpatient ([id number]) Medical Necessity Screening Admission review CNCM reviewed chart for medical necessity and ho spitalization. Met inpatient criteria per P A referral, please place "admit to inpatient" order. Elisa WANG RN, ACM-RN EC Clinical Nurse Lubrication Servicer [facility] T 2022-02-09 [facility] 04:16:13-00:00 System Problem: Healing Environment Goal: Provide A Physical Env ironment Affirmed By The Patient To Be Safe And Comfortable Outcome: Met This Shift Problem: Falls / Injury Goal: Absence of fall or injury Description: Refer to the Documentation Flowshee t for Interventions. Outcome: Met This Shift Problem: Alteration In Fluid Volume Goal: Fluid And Electrolytes Will Remain In Dc nce Description: Patient will maintain fluid and donna ctrolyte homeostasis. Vital signs, weight, skin tu rgor, and mucous membranes will remain stable within defined limits. Outcome: Met This Shift Problem: Altered Patterns Of Bowel Habits Goal: Bowel Patterns Will Return To Baseline Description: Patient will ma intain regular bowel habits without symptoms of gastrointestinal bleeding, or irregular bowel patterns (i.e., constipation or diarrhea) Outcome: Met This Shift 2022-02-09 Formatting of this note is different fro m the original. Sushila Whittington RN [facility] 00:58:33-00:00 Case management note: System Chart reviewed for medical necessity and hospita lization 02/09/22 0057 Intervention Financial Needs [facility] Eligibility (Presumed Indigent) Disease Management Meets criteria for Outpatient (Pending further work ups,continue IV fluids) Medical Necessity Screening Observation review;C oncurrent review ([id number]) CNCM will continue to follow patient care and di scharge plan Thank you, Sushila GEORGEN, RN, CCRN, CCM EC Clinical Nurse Ic Designer [employer] 2022-02-08 Formatting of this note is different fro m the original. Pati Wood [facility] 15:03:27-00:00 Nutrition Assessment [facility] System Nutrition recs below in blue Nutrition Assessment re: Consult - MD Nutrition Screen Score: 0 Brief Current Medical Issues (Per MD): 51y.o. year-old male with a past medical history significant for ostomy who presents with lightheadedness and hypotension in the setting of high ostomy output. Diagnosis: PMH: Chief Complaint Patient presents with Blood Pressure Hypotension 84/49. Other Colostomy bag "fell off" last night. Patient Active Problem List Diagnosis Disorder of stoma Hypotension Acute kidney injury Dehydration Hyponatremia Altered bowel elimination due to intestinal ostomy Encounter for ostomy care education ALMA (acute kidney injury) Pre-syncope Past Medical History: Diagnosis Date Alcohol abuse sober since 04/06/2017 Homelessness 04/10/2017 Thyroid disease 2012 Pertinent Labs: Pertinent Meds: No results found for: HBA1C 02/08/2022 04:00 Sodium 131 (L) Potassium 3.9 Chloride 103 CO2 20 (L) BUN 27.6 (H) Creatinine 1.4 (H) Glucose 84 eGFR If Am 67 (L) eGFR If non- Am 58 (L) Anion Gap 8 Calcium 8.1 (L) Magnesium 1.5 (L) Phosphorus 3.3 Albumin 3.5 (L) Corrected Ca-8.5, low - ascorbic acid 250mg - cyanocobalamin 1000 mcg - ferrous sulfate 325 mg - LR @ 125mL/hr - imodium TID - multivitamin + folic - psyllium 1 pkg TID Current Nutrition Therapy: Anthropometrics: Regular Diet Food allergies/preferences: NKFA Wt Readings fro m Last 1 Encounters: 02/08/22 156 lb (70.8 kg) Ht Readings from Last 1 Encounters: 02/08/22 6' 1" (1.854 m) Oral Supplement(s): Boost 1 package TID (720 kcal, 30 g protein) IBW: 184 lbs (83.6kg) +/-10% 84% IBW Body mass index is 20.58 kg/m2. normal Admit wt: 75kg - estimated wt Current wt: 70.7kg - standing wt Estimated Nutrition Needs (Current wt: 70.7kg): Calories: 2055-7703 kcal/day (30-35 kcal/kg) Protein: 85-106 g/day (1.2-1.5 g/kg) Fluid: ~3667-6722 mL/day (1 mL/kcal) or per MD gideon arce Skin: intact - per LDA flow sheet Nutrition-Focused Physical F indings & Comments: Consult received. Spoke to pt at bedside. Very pleasant. Pt is homeless, reports getting food 'however he can get'. Obviously thin with signs of muscl e/fat loss (protruding clavi dahiana, moderately depressed temples, teeth fairly WNL). General 'weathered' appearance. Having high ostomy output > 4 bag changes/day (~1.6-2L/day). Been like this for ~1 ye ar. Improving on imodium per pt. Frequently comes to the hospital for this issue. Discussed with pt also likely d/t poor diet on street (lack of fiber, gut health). Currently eating well, 100% all meals + Boost. Prefers strawberry as feasible, but likes any flavor. Denied n/v or c/s issues. Colostomy -600mL so far today. Labs reviewed- ALMA. eGFR 50-70s. On LR @ 125mL/hr. Wt relatively stable, 140-160s . No edema. Pt severely malnourished 2/2 social. Nutrition Diagnosis (PES): Severe malnutrition (in the context of environmental/social circumstances) related to limited access to food/water as evidenced by pr reports 'he eat what he can get' (suspected < 75% of EER > 1 m onth) and sev-mod muscle/fat loss (moderately depressed temples, protruding clavicle) Nutrition Intervention (Recommendations): 1.) Oral Diet: Continue Regular Diet OK for dbl portions as requested 2.) Nutrition Supplement: Continue Boost TID *in admin instructions: strawberry per pt prefe rence 3.) Micronutrients: Continue daily multivitamin B12, vit. C, iron per MD Replace Mg + Ca PRN 4.) Anti-diarrheal, pysllium per MD 5.) Daily wts until output stabilizes 6.) Diabetes Education: Patient is not a Diabetic. Nutrition Monitor/Evaluation: 1.) Diet/ PO intake + tolerance > 80% 2.) Weight/ prevent further wt loss 3.) Lab values/ improved lytes + renal function 4.) GI motility/ ostomy output < 500mL/day Nutrition Risk: sev-mod Will follow-up per nutrition protocol. Pati Gordillo RD, YANA Clinical Dietitian II #[id number] Pager: [phone] Office: [phone] 2022-02-08 [facility] 14:56:09-00:00 System Problem: Healing Environment Goal: Provide A Physical Env ironment Affirmed By The Patient To Be Safe And Comfortable Outcome: Met This Shift Goal: Identify The Patient's Healing Goal Outcome: Met This Shift Goal: Identify Traditional / Cultural Healing Pr actice (s) Outcome: Met This Shift Problem: Relationship Based Care Goal: Develop / Initiate The Interdisciplinary P rigo For Discharge Outcome: Met This Shift Goal: Identify Support Systems Outcome: Met This Shift Goal: Patient / Family / S.O . Are Supportive And Accepting Of The Established Care Goals Outcome: Met This Shift Problem: Culturally Responsive Care Goal: Provide Culturally Competent Care Outcome: Met This Shift Problem: Standards Of Nursing Care Goal: Maintain Standards Of Nursing Care Description: * Verify Care M eets Standards For Assessment And Management Of Patient Status, Medications And Treatment, Safety, And Education. * Care Reviewed Regarding: > Education Of Patient, Family, S.O. > Verify Understanding Of Ca uses, Treatment And Follow-Up Care Related To Disease Process. > Administration And Coordination Of Med ications And Treatments As Prescribed. > Assessment, Evaluation And Communication Of Status As Indicated By: Patient Condition, Treatment And / Or Patient Response. > Comfort Measures As Indica dain By: Patient Subjective And Objective Responses. Outcome: Met This Shift Problem: Falls / Injury Goal: Absence of fall or injury Description: Refer to the Documentation Flowshee t for Interventions. Outcome: Met This Shift Problem: Alteration In Fluid Volume Goal: Fluid And Electrolytes Will Remain In Dc nce Description: Patient will maintain fluid and donna ctrolyte homeostasis. Vital signs, weight, skin tu rgor, and mucous membranes will remain stable within defined limits. Outcome: Met This Shift Problem: Altered Patterns Of Bowel Habits Goal: Bowel Patterns Will Return To Baseline Description: Patient will ma intain regular bowel habits without symptoms of gastrointestinal bleeding, or irregular bowel patterns (i.e., constipation or diarrhea) Outcome: Met This Shift Electronically signed by Darrion Hutson at 2:56 PM CDT 2022-02-08 [facility] 04:14:49-00:00 System Problem: Standards Of Nursing Care Goal: Maintain Standards Of Nursing Care Description: * Verify Care M eets Standards For Assessment And Management Of Patient Status, Medications And Treatment, Safety, And Education. * Care Reviewed Regarding: > Education Of Patient, Family, S.O. > Verify Understanding Of Ca uses, Treatment And Follow-Up Care Related To Disease Process. > Administration And Coordination Of Med ications And Treatments As Prescribed. > Assessment, Evaluation And Communication Of Status As Indicated By: Patient Condition, Treatment And / Or Patient Response. > Comfort Measures As Indica dain By: Patient Subjective And Objective Responses. Outcome: Met This Shift Problem: Falls / Injury Goal: Absence of fall or injury Description: Refer to the Documentation Flowshee t for Interventions. Outcome: Met This Shift Problem: Alteration In Fluid Volume Goal: Fluid And Electrolytes Will Remain In [place] nce Description: Patient will maintain fluid and donna ctrolyte homeostasis. Vital signs, weight, skin tu rgor, and mucous membranes will remain stable within defined limits. Outcome: Met This Shift Problem: Altered Patterns Of Bowel Habits Goal: Bowel Patterns Will Return To Baseline Description: Patient will ma intain regular bowel habits without symptoms of gastrointestinal bleeding, or irregular bowel patterns (i.e., constipation or diarrhea) Outcome: Met This Shift 2022-02-08 Formatting of this note might be differe nt from the original. Cammy Kim [facility] 00:39:08-00:00 Pt admitted to 09/25 and i s being transported via stretcher with RN. Pt in NAD, ABCs intact. System Electronically signed by Cammy Kim at 2021 12:39 AM CDT 2022-02-08 Formatting of this note might be differe nt from the original. Katy Perkins [facility] 00:31:23-00:00 Primary RN Cammy notified of bed assignment. System Electronically signed by Katy Perkins 02/08/2022 12:31 AM CDT 2022-02-07 Formatting of this note is different from the or iginal. [facility] 20:40:00-00:00 Past Medical History: System Diagnosis Date Alcohol abuse sober since 04/06/2017 Homelessness 04/10/2017 Thyroid disease 2012 Chief Complaint Patient presents with Blood Pressure Hypotension 84/49. Other Colostomy bag "fell off" last night. Patient reported to D13 from for hypotension. Denies any SOB, CP, abdomina l pain, N/V/D, fever, chills, headache, dizziness, visual and/or hearing changes, urinary or bowel symptoms. Colostomy bag replaced in SR. Airway patent, breath sounds clear bilaterally, respirations even and unlabored, S1 and S2 auscultated. Skin warm, dry, and appropriate for ethnicity. Pt AAOX4, GCS 15, NAD at this time. Patient provided a safe envi ronment, educated on wait times, and instructed to notify staff of any changes. Belongings at bedside. Connected to bedside monitor for close observation. Bed locked and in lowest position, call light in reach. Pending admission. Electronically signed by Cammy Kim at 2021 10:18 PM CDT 2022-02-07 [facility] 20:11:16-00:00 Pt not physically in room yet. S ystem Electronically signed by Cammy Kim at 2021 8:11 PM CDT 2022-02-07 [facility] 19:40:41-00:00 Pt moved on tracker, not physically in room D13 at this time. System Electronically signed by Cammy Kim at 2021 7:41 PM CDT 2022-02-07 Formatting of this note might be differe nt from the original. Emergency Medicine [facility] 14:42:46-00:00 TEACHING PHYSICIAN NOTE System I was present for the botello po rtions of the resident's history and physical examination of Dora Mcneill. I reviewed the past medical records, nursing notes and resident's note and agree with the findings as documented in the resident's note.. I discussed the case with the resident and agree with the diagnosis of: Dehydration Heat exposure Homeless and plan: labs, iv hydration , awaiting results, will endorse care to next attending*. Marco Mcintosh MD February 07, 2022 2:42 PM Marco Mcintosh MD 02/07/22 1444 Electronically signed by Marco Mcintosh MD at 0 02/07/2022 2:44 PM CDT 2022-02-07 Formatting of this note is different from the or iginal. [facility] 13:45:38-00:00 First contact with Dora Mcneill, 51y.o., male. Patient identified using two patient identifiers (NAME and ). Patient presents to ER bed CC01 with a complaint of System Chief Complaint Patient presents with Blood Pressure Hypotension 84/49. Other Colostomy bag "fell off" last night. At this time patient AOx4, l jose d ejesus supine with HOB elevated. Patient showing no signs of acute distress. Patient presented to CC01 as a medicine shock due to hypotension in the 80s. Patient does endorse f eeling dizzy at this time. U tate arrival to room, patient was immediatly placed on continuous cardiac monitoring. Current BP 82/52 on LifePak monitor. HR 88. ABCs intact. Cap refill normal, less than thr ee seconds. Breathing unlabo red with an even chest rise. Lung sounds clear bilaterally. Pulses, strength, and sensation intact in all extremities. PERRLA intact. Bowel sounds active in all four abdomina l quadrants. Abdomen soft an d non-rigid. Skin intact. Skin color normal for ethnicity. Pending: Lab Work Last Vitals Temp: 98.5 F (36.9 C) BP: (!) 84/49 Pulse: 81 Resp: 18 SpO2: 97 % Electronically signed by Valente Watkins at 2021 1:50 PM CDT 2022-02-07 [facility] 13:32:13-00:00 Pt hypotensive, taken 2 time s while at ambulance desk. 84/49, HR 81. System 2022-01-30 [facility] 17:43:00-00:00 [facility] ([facility]) EMERGENCY PROVIDER REPORT REPORT#:[id number] REPORT STATUS: Signed DATE:01/30/22 TIME: 1743 PATIENT: DORA MCNEILL UNIT #: [id number] ROOM: BED: AGE: 51 SEX: M PCP PHYS: No Primary or Family Ph ysician SERVICE AUTHOR: Dwain Pacheco * ALL edits or amendments must be made on the Style for Hire/computer document * HPI-General Illness Free Text HPI Notes Free Text HPI Notes PMH of remote ostomy from at sounds like perforated diverticulitis. Brought to the ED by EMS/HFD for a reported prolaps ed stoma. States it has been like this for at least 2-3 years. Notes he just ignored it but now has a little more discomfort. Still notes he i s having adequate output. No reported fever, n/v/d, back pain. Ostomy was done at [facility]. Patient states he is homeless. General Initial Greet Date/Time 01/30/22 1704 Presentation Chief Complaint __ (Ostomy/stoma problem) Hx Obtained From Patient Review of Systems ROS Statements All systems rev neg except as marked. Past Medical History - Adult Stated Complaint ABD PAIN Allergies Coded Allergies: No Known Allergies (01/30/22) Calculated Suicide Risk (nurs) No risk Smoking status for patients 13 years old or olde r: Never Smoker Physical Exam Vital Signs Vital Signs First Documented: Result Date Time O2 Delivery Room air 01/30 1706 Pulse Ox 99 01/30 1726 B/P 106/70 01/30 1726 B/P Mean 82 01/30 1726 Temp 37.1 01/30 1726 Pulse 83 01/30 1726 Resp 16 01/30 172 Last Documented: Result Date Time Pulse Ox 99 01/30 1826 B/P 99/60 01/30 1826 B/P Mean 73 01/30 1826 O2 Delivery Room air 01/30 1826 Temp 37.1 01/30 182 Pulse 93 01/30 182 Resp 16 01/30 182 Review of Vital Signs Reviewed Physical Exam General/Const General/Const Awake, Alert, No acute distress, Well appearing, Cooperative, Not toxic appearing Ears/Nose/Throat Ears/Nose/Throat Airway patent MS Neck Neck Supple Resp/Chest Respiratory/Chest No respiratory distress Cardiovascular Cardiovascular Heart rate NL, Cap refill not de layed, Peripheral circulation NL Abdomen/GI Abdomen/GI Non-tender, No distention, prolapsed stoma to RLQ with ostomy bag in place and small quantity of loose feces in ba g, no significant swelling/ erythema noted, stoma healthy pink color Skin Skin Warm, Dry Neurologic Neurologic Oriented X3, Speech NL Re-Evaluation MDM Free Text MDM Notes Free Text MDM Notes 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 Normal output repor dain. Ostomy bag exchanged at paty ent's request. Patient given recs to either f/u with his original surgeon or seek care in the [facility] system to obtain surgical f/u for further management. However, also given strict r eturn precautions to the ED. Patient Discharge Departure Vital Signs/Condition Vital Signs First Documented: Result Date Time O2 Delivery Room air 01/30 170 Pulse Ox 99 01/30 1726 B/P 106/70 01/30 1726 B/P Mean 82 01/30 1726 Temp 37.1 01/30 1726 Pulse 83 01/30 1726 Resp 16 01/30 172 Last Documented: Result Date Time Pulse Ox 99 01/30 1826 B/P 99/60 01/30 1826 B/P Mean 73 01/30 1826 O2 Delivery Room air 01/30 182 Temp 37.1 01/30 182 Pulse 93 01/30 182 Resp 16 01/30 182 All vital signs available at the time of this en try have been reviewed. Clinical Impression Clinical Impression Primary Impression: Prolapse of stoma Disposition Decision Discharge )( Discharged to Home Yes (patient is homeless) )( Time 1755 )( Date 01/30/22 Discharge/Care Plan Counseled Regarding Diagnosis, Need for follow-u p, When to return to ED Patient Instructions V-Stoma Care Your Stoma Ski n Steps Referrals Provider Referral: Stacey Nair MD Follow-Up: 1 Week Notes: Or with another colorectal surgeon of your valenzuela ce. Call for appointment. Return to the ER for any worse or severe sympto ms. Address: [address] [place] [address], [address] [place] [address] at 1906 RPT #:[id number] END OF REPORT 2021-09-23 [facility] 21:01:00-00:00 [facility] ([facility]) EMERGENCY PROVIDER REPORT REPORT#:[id number] REPORT STATUS: Signed DATE:09/23/21 TIME: 2100 PATIENT: HOANG MCNEILL UNIT #: [id number] ROOM/BED: AGE: 51 SEX: M PCP PHYS: No Primary or Family Ph ysician SERVICE AUTHOR: Raffaele Levi MD * ALL edits or amendments must be made on the Style for Hire/computer document * HPI-Abd Pain M 40 and Over Free Text HPI Notes Free Text HPI Notes 51-year-old male with past medical history of ivy wel obstruction and colostomy presents for 1 day of nausea vomiting wi th associated generalized weakness and upper abdominal discomfort Duration 1 day frequency intermittent context de nies trauma modifying no improvement with home observation General Initial Greet Date/Time 09/23/211934 Presentation Chief Complaint Nausea Sudden in Onset? No Risk-Abd Pain M 40 and Over )( Abdominal Aortic Aneurysm Risk factors N/A Review of Systems ROS Statements All systems rev neg except as marked. Focused Review of Systems Constitutional Reports: Weakness - generalized. GI Reports: Nausea, Vomiting. Past Medical History - Adult Stated Complaint VOMITING, CHILLS, DRY MOUTH Allergies Coded Allergies: No Known Allergies (07/22/21) Home Medications Active Scripts CIPROFLOXACIN (CIPRO) 500 MG PO BID CIPROFLOXACIN (CIPRO) 500 MG PO BID #10 TABS Prov: 12/04/21 Calculated Suicide Risk (nurs) No risk Additional Medical History bowel obstrution Additional Surgical History bowel resection colsotomy reversal of colostomy Additional Family History Denies Alcohol Use Denies EtOH use Drug Use Denies recreational drugs Smoking status: Smoking status for patients 13 years old or old er: Never Smoker Other Social History Uses smokeless tobacco Additional Social History Patient is undomiciled Physical Exam Vital Signs Vital Signs First Documented: Result Date Time Pulse Ox 100 09/23 1939 B/P 110/65 09/23 1939 B/P Mean 80 09/23 1939 O2 Delivery Room air 09/23 1939 Temp 36.7 09/23 1939 Pulse 80 09/23 1939 Resp 16 09/23 1939 Last Documented: Result Date Time Pulse Ox 100 09/23 1939 B/P 110/65 09/23 1939 B/P Mean 80 09/23 1939 O2 Delivery Room air 09/23 1939 Temp 36.7 09/23 1939 Pulse 80 09/23 1939 Resp 16 09/23 1939 Review of Vital Signs Reviewed Basic Physical Exam Basic PE HEAD: Atraumatic/NC, EYES: PERRL, conj clear, ENT: Membranes moist, NECK: Supple, EXT: No gross abnormality, SKIN: No rashes, warm/dry, NEURO: alert oriented, NEURO: gross movement NL, PSYCH: NL t hought content Focused PE General/Const General/Const Awake, Alert, No acute distress, Well hydrated, Cooperative, Not toxic appearing Resp/Chest Respiratory/Chest Atraumatic, No respiratory di stress Cardiovascular Cardiovascular Cap refill not delayed, Peripher al circulation NL Abdomen/GI Abdomen/GI Soft, Non-tender, colostomy present, pink tissue, soft brown output MS Back Back Full range of motion, Painless range of mo tion Interpretation Diagnostics Lab Results Interpretation Results Laboratory Tests: 09/23 Blood Gas Sodium (134 - 147 MEQ/L) 138 Potassium (3.4 - 5.0 MEQ/L) 3.7 Chloride (100 - 108 MEQ/L) 98 L Ionized Calcium (1.12 - 1.32 MMOL/L) 1.17 Chemistry POC Creatinine (0.8 - 1.3 mg/dL) 1.2 POC Glucose (mg/dL) (MG/DL) 81 Total Bilirubin (0.0 - 1.0 MG/DL) 0.4 GGT (5 - 85 UNITS/L) 13 AST (15 - 37 IUnit/L) 19 ALT (30 - 65 IUnit/L) 19 L Total Alk Phosphatase (20 - 125 IUNIT/L) 82 Total Protein (5.0 - 8.0 GM/DL) 6.7 Albumin (3.4 - 5.0 g/dL) 3.4 Amylase (25 - 125 UNITS/L) 67 Recent Impressions: CAT SCAN - CT ABD PELVIS W/CONT 09/23 1999 Report Impression - Status: SIGNED Entered: 09/23/20212049 IMPRESSION: 1. Nonspecific mild to moderate wall thickening of few left abdominal small bowel loops may relate to incomp lete luminal distention or enteritis. 2. Subtotal colectomy changes once again seen wi th right lower quadrant ileostomy with fat containing peristoma l hernia. No obstruction. Impression By: [email or web address] - Juan Juarez M.D. Lab Imaging Statement Laboratory radiographic studies reviewed and con sidered in the medical decision-making. Point of Care Testing Pulse Oximetry Interpretation Interpreted by me, Pulse oximetr y normal Re-Evaluation MDM Free Text MDM Notes Free Text MDM Notes Low suspicion for invasive bacterial enteritis g iven lack of fever toxicity abdominal tenderness or blood in stool. Will def er antibiotics, provided GI follow-up. )( Re-Evaluation/Progress #1 )( Re-Eval Status Improved ED Course Medication(s) Ordered Medication(s) Ordered: Diagnostic Agents Sig/Elena Start time Last Medication Dose Route Stop Time Status Admin Iopamidol 100 ML .STK-MED ONE 09/23 1958 DC IV 09/23 Electrolytic, Caloric, And Yovanny Sig/Elena Start time Last Medication Dose Route Stop Time Status Admin Sodium Chloride 0 ASDIR PRN 09/23 1944 AC IV 09/24 1839 Sodium Chloride 1,000 ML X1ED STA 09/23 1939 DC 09/23 IV 09/23 Gastrointestinal Drugs Sig/Elena Start time Last Medication Dose Route Stop Time Status Admin Ondansetron HCl 4 MG X1ED PRN PRN 09/23 1944 DC 09/23 IV 2008 Differential Diagnosis Differential Diagnosis Abdom inal aortic aneurysm, Abscess, Acute abdominal pain, Acute coronary syndrome, Angina/MD, Aortic disse ction, Appendicitis, Bladder outlet obstruct, Bowel obstruction, C. diff coli tis, Cellulitis, Cholangitis, Cholecystitis, Cholelithiasi s, Constipation, Contusion abdominal wall, Diabetic ketoacidosis, Diarrhea, Diverticular disease, Dy spepsia, Esophageal rupture, Esophagitis, Foreign body, G astritis, Gastroenteritis, GERD, Glaucoma, Gun shot wound abdomen, Hepatitis, Hernia, Hydrocele, Inf ectious mononucleosis, Inflam bowel disease, Inguinal joseph ia, Ischemic bowel, Malignancy, Mesenteric adenitis, Myocardial infarction, Pancreatitis, Peptic ulce r disease, Peritonitis, Porphyria, Postop complication, Pylonephritis, S epsis?, Septic shock?, Severe sepsis?, Sickle cell crisis, Stab wound abdomen, Torsion appendix teste R, Torsion appendix teste L, Torsion testicle R, To rsion testicle L, Trauma abdominal, Unstable angina, Urinary obstruction, Urinary retention, Urinary tract infection, Urolithiasis, Volvulus Patient Discharge Departure Vital Signs/Condition Vital Signs First Documented: Result Date Time Pulse Ox 100 09/23 1939 B/P 110/65 09/23 1939 B/P Mean 80 09/23 1939 O2 Delivery Room air 09/23 1939 Temp 36.7 09/23 1939 Pulse 80 09/23 1939 Resp 16 09/23 1939 Last Documented: Result Date Time Pulse Ox 100 09/23 194 B/P 110/65 09/23 194 B/P Mean 80 09/230 O2 Delivery Room air 09/23 1939 Temp 36.7 09/23 1939 Pulse 80 09/23 1939 Resp 16 09/23 1939 All vital signs available at the time of this en try have been reviewed. Clinical Impression Clinical Impression Primary Impression: Viral enteritis Secondary Impressions: Nausea vomiting, Weakness Disposition Decision Discharge )( Discharged to Home Yes )( Time 2104 )( Date 09/23/21 Discharge/Care Plan (Auto) Prescriptions Current Visit Scripts ONDANSETRON ODT (ZOFRAN ODT) 4 MG PO Q6H PRN PRN NAUSEA/VOMITING ONDANSETRON ODT (ZOFRAN ODT) 4 MG PO Q6H PRN FL N NAUSEA/VOMITING #15 TABS Patient Instructions ED Gastroenteritis, Noninfe ctious Referrals [place] MD: 2-3 Days GI doctor Discharge Note I have spoken with the patie nt and/or caregivers. I have explained the patient's condition, diagnoses and phillip atment plan based on the information available to me at this time. I have answered the patient's and/ or caregiver's questions and addressed any concerns. The patient and/or careg piyush have as good an understanding of the patient 's diagnosis, condition and treatment plan as can be expected at this point. The vital signs have bee n stable. The patient's condition is stable and appr opriate for discharge from the emergency department. The patient will pursue further outpatient evalu ation with the primary care physician or other designated or consulting phys selenean as outlined in the discharge instructions. The patient and/or caregivers are agreeable to this plan of care and follow-up instructions have been exp lained in detail. The patient and/or caregivers have received these instructio ns in written format and have expressed an understanding of the discharge inst ructions. The patient and/or caregivers are aware that any significant change in condition or worsening of symptoms should prompt an immediate return to [facility] or the closest emergency department or a call to 1. at 2106 RPT #:[id number] END OF REPORT 2021-09-13 [facility] 15:01:00-00:00 [facility] ([facility]) EMERGENCY PROVIDER REPORT REPORT#:[id number] REPORT STATUS: Signed DATE:09/13/21 TIME: 1501 PATIENT: HOANG MCNEILL UNIT #: [id number] ROOM/BED: AGE: 51 SEX: M PCP PHYS: No Primary or Family Ph ysician SERVICE DT: AUTHOR: Raffaele Levi MD * ALL edits or amendments must be made on the el [employer]/computer document * HPI-Dizziness/Weakness Free Text HPI Notes Free Text HPI Notes 51-year-old male with history of bowel obstructi on status post colostomy presents requesting IV fluid hydration due to in creased output from his colostomy for 1 day. Denies additional symptoms including bleeding events, pain or vomiting. Notes he was recently admitted at [facility] and was discharged last week after fluid hydration. 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 Duration 1 day frequency con stant context denies trauma modifying no improvement with home medications General Initial Greet Date/Time 09/13/21 1457 Presentation Chief Complaint fluid hydration Review of Systems ROS Statements All systems rev neg except as marked. Past Medical History - Adult Stated Complaint OSTOMY PUTTING OUT TOO MUCH Allergies Coded Allergies: No Known Allergies (07/22/21) Home Medications Active Scripts CIPROFLOXACIN (CIPRO) 500 MG PO BID CIPROFLOXACIN (CIPRO) 500 MG PO BID #10 TABS Prov: 07/27/21 Additional Medical History bowel obstrution Additional Surgical History bowel resection colsotomy reversal of colostomy Additional Family History Denies Alcohol Use Denies EtOH use Drug Use Denies recreational drugs Other Social History Uses smokeless tobacco Additional Social History Patient is undomiciled Physical Exam Vital Signs Vital Signs First Documented: Result Date Time Pulse Ox 99 09/13 1459 B/P 136/85 09/13 1459 B/P Mean 102 09/13 1459 O2 Delivery Room air 09/13 1459 Temp 36.6 09/13 1459 Pulse 89 09/13 1459 Resp 19 09/13 1459 Last Documented: Result Date Time Pulse Ox 99 09/13 1459 B/P 136/85 09/13 1459 B/P Mean 102 09/13 1459 O2 Delivery Room air 09/13 1459 Temp 36.6 09/13 1459 Pulse 89 09/13 1459 Resp 19 09/13 1459 Review of Vital Signs Reviewed Basic Physical Exam Basic PE HEAD: Atraumatic/NC, EYES: PERRL, conj clear, ENT: Membranes moist, NECK: Supple, ABD: Soft/non- tender, EXT: No gross abnormality, SKIN: No rashes, warm/dry, PSYCH: NL thought content Focused PE General/Const General/Const Awake, Alert Resp/Chest Respiratory/Chest Atraumatic, No respiratory di stress Cardiovascular Cardiovascular Cap refill not delayed, Peripher al circulation NL Abdomen/GI Abdomen/GI Soft, Non-tender, colostomy present, pink tissue, soft brown output Neurologic Neurologic Speech NL, Gait NL Interpretation Diagnostics Point of Care Testing Pulse Oximetry Interpretation Interpreted by me, Pulse oximetr y normal Re-Evaluation MDM Free Text MDM Notes Free Text MDM Notes Low suspicion for acute surgical process, signif icant metabolic derangement, anemia, or additional emergent processes. Patrick morales is overall well-appearing nontoxic well-perfused. He has been given a lite r of IV fluid by request. He states he is in process of getting Medicaid, I w ill refer him to a surgeon at [place] for second opinion. ED Course Medication(s) Ordered Medication(s) Ordered: Electrolytic, Caloric, And Yovanny Sig/Elena Start time Last Medication Dose Route Stop Time Status Admin Sodium Chloride 1,000 ML X1ED STA 09/13 1500 AC 09/13 IV 09/13 1559 1512 Differential Diagnosis Differential Diagnosis Anemi a, Acute coronary syndrome, Anxiety reaction, Benign parox vertigo, Carbon monoxi de poisoning, Cerebrovascular accident, Dehydration, Depression, Dysrhythmia, Electrolyte disorder, G uillain-Neal syndrome, Heat cramps, Heat exhaustion, Heat stroke, Hy perventilation syndrome, Hypoglycemia, Hypothyroidism, Intracranial bleed, Laby rinthitis, Meniere's disease, Migraine disorder, Myasthenia gravis, Myocardial infarction, Organophosphate poisoning, Panic disorder, Periodic paralysis, Pulmonary em bolus, Rheumatologic disease, Subarachnoid hemorrhage, Tra nsient ischemic attack, Tick paralysis, Vertebrobas insufficiency, Vertigo, central, Vertigo, periph eral, Vestibular neuronitis Patient Discharge Departure Vital Signs/Condition Vital Signs First Documented: Result Date Time Pulse Ox 99 09/13 1459 B/P 136/85 09/13 1459 B/P Mean 102 09/13 1459 O2 Delivery Room air 09/13 1459 Temp 36.6 09/13 1459 Pulse 89 09/13 1459 Resp 19 09/13 1459 Last Documented: Result Date Time Pulse Ox 99 09/13 1459 B/P 136/85 09/13 1459 B/P Mean 102 09/13 1459 O2 Delivery Room air 09/13 1459 Temp 36.6 09/13 1459 Pulse 89 09/13 1459 Resp 19 09/13 1459 All vital signs available at the time of this en try have been reviewed. Clinical Impression Clinical Impression Primary Impression: Impaired hydration Secondary Impressions: History of creation of os alivia Disposition Decision Discharge )( Discharged to Home Yes )( Time 1517 )( Date 09/13/21 Discharge/Care Plan Patient Instructions ED Dehydration (Adult) Referrals Mustapha Day MD: 1 Week general surgeon Discharge Note I have spoken with the patie nt and/or caregivers. I have explained the patient's condition, diagnoses and phillip atment plan based on the information available to me at this time. I have answered the patient's and/ or caregiver's questions and addressed any concerns. The patient and/or careg piyush have as good an understanding of the patient 's diagnosis, condition and treatment plan as can be expected at this point. The vital signs have bee n stable. The patient's condition is stable and appr opriate for discharge from the emergency department. The patient will pursue further outpatient evalu ation with the primary care physician or other designated or consulting phys ician as outlined in the discharge instructions. The patient and/or caregivers are agreeable to this plan of care and follow-up instructions have been exp lained in detail. The patient and/or caregivers have received these instructio ns in written format and have expressed an understanding of the discharge inst ructions. The patient and/or caregivers are aware that any significant change in condition or worsening of symptoms should prompt an immediate return to [facility] or the closest emergency department or a call to 911. at 1520 RPT #:[id number] END OF REPORT 2021-07-27 [facility] 12:06:00-00:00 [facility] ([facility]) EMERGENCY PROVIDER REPORT REPORT#:[id number] REPORT STATUS: Signed DATE:07/27/21 TIME: 1206 PATIENT: HOANG MCNEILL UNIT #: [id number] ROOM/BED: AGE: 51 SEX: M PCP PHYS: No Primary or Family Ph ysician SERVICE AUTHOR: Juan Jose Avendaño MD * ALL edits or amendments must be made on the Style for H[employer]/computer document * HPI-General Illness General Initial Greet Date/Time 07/27/21 1031 Presentation Chief Complaint __ (COLOSTOMY BAG WITH PROLAPRSE D) Hx Obtained From Patient Sudden in Onset? No Onset Occurred Yesterday Symptom Duration Since onset Location Abdomen Severity: Onset Moderate Severity: Current Moderate Associated with Denies: Abdominal pain, Aura, Bruising. Exacerbated by Nothing Relieved by Nothing Review of Systems ROS Statements All systems rev neg except as marked. Review of Systems Respiratory Denies: Dyspnea on exertion, Parox nocturnal dys pnea. Cardiovascular Denies: Dyspnea on exertion, Palpitations. Past Medical History - Adult Stated Complaint LOWER INTESTINE IN COLOSTOMY BA G Allergies Coded Allergies: No Known Allergies (07/22/21) Home Medications Discontinued Scripts DICYCLOMINE (BENTYL) 10 MG PO TID DICYCLOMINE (BENTYL) 10 MG PO TID #10 TAB Prov: 05/01/21 DC: 07/27/21 1119 Therapy completed ACIDOPHILUS/BULGARICUS (FLORANEX) 1 TAB PO TID ACIDOPHILUS/BULGARICUS (FLORANEX) 1 TAB PO TID #15 TABS Prov: 05/01/21 DC: 07/27/21 1119 Therapy completed Calculated Suicide Risk (nurs) No risk Additional Medical History bowel obstrution Additional Surgical History bowel resection colsotomy reversal of colostomy Additional Family History Denies Alcohol Use Denies EtOH use Drug Use Denies recreational drugs Smoking status: Smoking status for patients 13 years old or old er: Current every day smoker Other Social History Uses smokeless tobacco Additional Social History Patient is undomiciled Physical Exam Vital Signs Vital Signs First Documented: Result Date Time Pulse Ox 99 07/27 1017 B/P 116/74 07/27 1017 B/P Mean 88 07/27 1017 O2 Delivery Room air 07/27 1017 Temp 36.6 07/27 1017 Pulse 97 07/27 1017 Resp 17 07/27 1017 Last Documented: Result Date Time Pulse Ox 98 07/27 1234 Temp 36.7 07/27 1234 Pulse 78 07/27 1234 Resp 18 07/27 1234 B/P 116/74 07/27 1017 B/P Mean 88 07/27 1017 O2 Delivery Room air 07/27 1017 Review of Vital Signs Reviewed Basic Physical Exam Basic PE HEAD: Atraumatic/NC, EYES: PERRL, conj clear, NECK: Supple, RESP: No resp distress, CV: Reg rate rhythm, ABD: Soft/no n-tender, EXT: No gross abnormality Physical Exam General/Const General/Const No acute distress, Well appearing MS Neck Neck Supple, No meningismus Abdomen/GI Abdomen/GI Atraumatic (COLOSTOMY WITH PROLAPSED BOWEL) Interpretation Diagnostics Lab Results Interpretation Results Laboratory Tests 07/27/21 1125: [Embedded Image Not Available] Laboratory Tests: 07/27 1125 Chemistry Sodium (134.0 - 147.0 mmol/l) 136 Potassium (3.6 - 5.2 mmol/L) 3.7 Chloride (98.0 - 107.0 mmol/l) 102 Carbon Dioxide (21.0 - 33.0 mmol/l) 26.3 Anion Gap (0 - 20) 11.4 BUN (7.0 - 18.0 mg/dl) 10 Creatinine (0.60 - 1.30 mg/dL) 1.70 H Est GFR ( Amer) (109 - 115 mL/min) 55 L Est GFR (Non-Af Amer) (90 - 95 mL/min) 45 L Glucose (70.0 - 110.0 mg/dl) 99 Calcium (8.0 - 10.5 mg/dl) 9.2 Total Bilirubin (0.0 - 1.0 mg/dl) 0.5 AST (15 - 37 Units/L) 48 H ALT (12.0 - 78.0 Units/L) 54 Total Alk Phosphatase (50.0 - 136.0 Units/L) 74 Total Protein (6.0 - 8.1 GM/DL) 6.4 Albumin (3.2 - 4.7 gm/dL) 3.5 Coagulation INR (0.89 - 1.14) 0.9 PT Patient/Control Mix (9.9 - 12.8 SECONDS) 10. 9 Hematology WBC (4.5 - 11.0 K/mm3) 7.5 RBC (4.40 - 5.90 M/mm3) 3.79 L Hgb (13.0 - 17.0 gm/dL) 11.3 L Hct (36.0 - 48.0 %) 35.3 L MCV (80.0 - 94.0 UM3) 93.1 MCH (25.5 - 32.5 UUG) 29.8 MCHC (29.0 - 35.5 gm/dL) 32.0 RDW (11.5 - 15.0 %) 14.3 Plt Count (150 - 400 K/mm3) 247 MPV (7.4 - 10.4 fl) 9.5 Neut % (Auto) (49.0 - 76.0 %) 72.8 Lymph % (Auto) (23.0 - 38.0 %) 16.4 L Peach % (Auto) (1.0 - 10.0 %) 9.5 Eos % (Auto) (1.0 - 5.0 %) 0.5 L Baso % (Auto) (0.0 - 1.0 %) 0.4 Neut # (Auto) (2.4 - 6.3 K/mm3) 5.5 Lymph # (Auto) (1.2 - 4.0 K/mm3) 1.2 Peach # (Auto) (0.0 - 0.6 K/mm3) 0.7 H Eos # (Auto) (0.0 - 0.7 K/MM3) 0.0 Baso # (Auto) (0.0 - 0.2 K/mm3) 0.0 Absolute Nucleated RBC (0.00 - 0.01 X10 3uL) 0. 00 Immature Gran % (0.0 - 0.4 %) 0.4 Nucleated RBC % (0.0 - 0.1 %) 0.0 Immature Gran # (0.00 - 0.07 x10 3/uL) 0.03 Lab Statement Laboratory studies reviewed and considered in e medical decision-making. Re-Evaluation MDM Free Text MDM Notes Free Text MDM Notes PROLAPSED INTESTINE.. Re-Evaluation/Progress #1 Re-Eval Status Unchanged Patient Discharge Departure Vital Signs/Condition Vital Signs First Documented: Result Date Time Pulse Ox 99 / 1017 B/P 116/74 / 1017 B/P Mean 88 12/ 1017 O2 Delivery Room air / 1017 Temp 36.6 12/ 1017 Pulse 97 12/ 1017 Resp 17 12/ 1017 Last Documented: Result Date Time Pulse Ox 98 12 1234 Temp 36.7 12/ 1234 Pulse 78 12/ 1234 Resp 18 12/ 1234 B/P 116/74 12/ 1017 B/P Mean 88 12/04 1017 O2 Delivery Room air 12/ 1017 All vital signs available at the time of this en try have been reviewed. Clinical Impression Clinical Impression Primary Impression: Prolapsed, intestine Secondary Impressions: Intestinal stoma prolapse Disposition Decision Discharge )( Discharged to Home Yes )( Time 1208 )( Date 07/27/21 Discharge/Care Plan (Auto) Prescriptions Current Visit Scripts CIPROFLOXACIN (CIPRO) 500 MG PO BID CIPROFLOXACIN (CIPRO) 500 MG PO BID #10 TABS Patient Instructions ED Unknown Causes of Abdomi nal ... Referrals Rebecca Ricci MD at [address] [facility] #:[id number] END OF REPORT 2021-07-22 [facility] 04:37:00-00:00 [facility] ([facility]) EMERGENCY PROVIDER REPORT REPORT#:[id number] REPORT STATUS: Signed DATE:07/22/21 TIME: 436 PATIENT: HOANG MCNEILL UNIT #: [id number] ROOM/BED: AGE: 51 SEX: M PCP PHYS: No Primary or Family Ph ysician SERVICE AUTHOR: Gabriella Hewitt MD * ALL edits or amendments must be made on the Style [employer] Interactive document * HPI-Dizziness/Weakness Free Text HPI Notes Free Text HPI Notes This is a 51-year-old male with past medical his tory significant for homelessness presented to [facility] emergency department for dizziness and dry mouth. 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 He is denying nausea, vomiting, fevers, chills, chest pain, shortness of arabella ath. He has no other concerns or complaints at this time. General Initial Greet Date/Time 07/22/21425 Presentation Chief Complaint Lightheaded Risk-Dizziness/Weakness Risk Stratification NIH Stroke Scale NIH Stroke Scale Response Value NIHSS Applicable? No 0 Total 0 Review of Systems Free Text ROS Notes Free Text ROS Notes In addition to that document ed in the HPI above, the additional ROS was obtained : Constitutional: Endorses lightheadedness. Denies fevers or chills Eyes: Denies vision changes ENMT: Denies sore throat CV: Denies chest pain Resp: Denies SOB, or wheezing GI: Denies abdominal pain, nausea, vomiting or d iarrhea : Denies dysuria, hematuria, or difficulty uri nating MSK: Denies swelling, pain, or injury Skin: Denies new rashes, or color change Neuro: Denies headache, new numbness, tingling o r weakness Endocrine: Denies unexpected weight loss or weig ht gain. Heme: Denies bleeding disorders Psy: Denies SI, or depressed mood Past Medical History - Adult Stated Complaint DRY MOUTH, DIZZY, SHAKY Allergies Coded Allergies: No Known Allergies (07/22/21) Home Medications Active Scripts DICYCLOMINE (BENTYL) 10 MG PO TID DICYCLOMINE (BENTYL) 10 MG PO TID #10 TAB Prov: 05/01/21 ACIDOPHILUS/BULGARICUS (FLORANEX) 1 TAB PO TID ACIDOPHILUS/BULGARICUS (FLORANEX) 1 TAB PO TID #15 TABS Prov: 05/01/21 Pt reports no significant: P ast medical history, Family history, Social history Additional Medical History bowel obstrution Additional Surgical History bowel resection colsotomy reversal of colostomy Additional Family History Denies Alcohol Use Denies EtOH use Drug Use Denies recreational drugs Other Social History Uses smokeless tobacco Additional Social History Patient is undomiciled Physical Exam Vital Signs Vital Signs First Documented: Result Date Time Pulse Ox 99 07/22 524 B/P 125/71 07/22 524 B/P Mean 89 07/22 524 O2 Delivery Room air 07/22 524 Temp 37.1 07/22 524 Pulse 85 07/22 524 Resp 16 07/22 524 Last Documented: Result Date Time Pulse Ox 100 07/22 05 B/P 95/54 07/22 537 B/P Mean 67 07/22 537 O2 Delivery Room air 07/22 537 Pulse 73 07/22 537 Resp 16 07/22 537 Temp 37.1 07/22 524 Review of Vital Signs Reviewed Free Text PE Notes Free Text PE Notes Const: Well-nourished, Well-developed in no appa rent distress. Head: Normocephalic/Atraumatic. Eyes: No conjunctival injection, symmetrical lid s. ENMT: Atraumatic, Moist MM. Neck: Symmetric, trachea midline. Cardio: Regular rate, and rhythm. No murmurs, ru bs, or gallops. Peripheral pulses 2+ and equal in all extremities. RESP: Unlabored respiratory effort. CTAB. GI: Nontender/Nondistended, No guarding or rebou nd tenderness. MSK: Extremities w/o deformity. No cyanosis or c lubbing. Skin: Warm, Dry. No rashes or lesions. Neuro: Awake, Alert, Oriented (AAO) x3. Sensatio n grossly intact. Psych: Appropriate mood and affect. Interpretation Diagnostics Lab Results Interpretation Results Laboratory Tests: 07/22 0519 0433 Blood Gas Sodium (134 - 147 MEQ/L) 136 Potassium (3.4 - 5.0 MEQ/L) 3.4 Chloride (100 - 108 MEQ/L) 100 Ionized Calcium (1.12 - 1.32 MMOL/L) 1.22 Chemistry POC Creatinine (0.8 - 1.3 mg/dL) 1.8 H POC Glucose (70 - 110 MG/DL) 129 H 51 L POC Glucose (mg/dL) (MG/DL) 92 Re-Evaluation MDM Free Text MDM Notes Free Text MDM Notes This 51-year-old [facility] with lightheadedness and dry mouth. A vcllr-xo-lnyv gluco se was obtained which revealed a glucose of 51. This is likely responsible for the patient's symptoms. I will obtain a BMP and CBC. Patient was given something to eat here in emerg ency department. I will also give a liter bolus of fluid hydration. BMP confirmed the patient's hypoglycemia. I feel this is likely the cause of the patient's symptoms. I wi ll reassess the patient's glucose sometime after he has completed eating the food provided here in [facility] emergency department. Remainder BMP was unremarkable. CBC was unremark able. After approximately 90 minutes post meal the pat ient's repeat blood sugar was approximately 120. I feel that he is otherwise hemodynamically stab le for discharge. Very strict return precautions were given for which he expre ssed understanding. He was discharged in stable condition. ED Course Medication(s) Ordered Medication(s) Ordered: Electrolytic, Caloric, And Yovanny Sig/Elena Start time Last Medication Dose Route Stop Time Status Admin Sodium Chloride 1,000 ML ONCE ONE 07/22 615 DC 07/22 IV 07/22 616 0623 Patient Discharge Departure Vital Signs/Condition Vital Signs First Documented: Result Date Time Pulse Ox 99 07/22 524 B/P 125/71 07/22 524 B/P Mean 89 07/22 524 O2 Delivery Room air 07/22 524 Temp 37.1 07/22 524 Pulse 85 07/22 524 Resp 16 07/22 524 Last Documented: Result Date Time Pulse Ox 100 07/22 537 B/P 95/54 07/22 537 B/P Mean 67 07/22 537 O2 Delivery Room air 07/22 537 Pulse 73 07/22 537 Resp 16 07/22 537 Temp 37.1 07/22 524 All vital signs available at the time of this en try have been reviewed. Clinical Impression Clinical Impression Primary Impression: Hypoglycemia Time of Impression 0650 Disposition Decision Discharge )( Discharged to Home Yes )( Time 0650 )( Date 07/22/21 Discharge/Care Plan Patient Instructions ED Hypoglycemia, Nondiabeti c Additional Instructions You were evaluated in the emergency department f or dizziness and a dry mouth. We obtained a blood sugar which was low and is l ikely the cause of your symptoms. We have given you some food here in [facility] emergency department which help correct this. We obtained some lab test whi ch were normal and only confirmed that your blood sugar level was low. N o other cause was identified. Please return to the emergency department if you r symptoms worsen or any concerns you may have. Otherwise, please follow- up with your primary care doctor. Referrals PRIMARY CARE Departure Forms [facility] PCP LIST Electronically Signed by Gabriella Hewitt MD on at 0650 RPT #:[id number] END OF REPORT 2021-06-27 [facility] 15:44:00-00:00 [facility] ([facility]) EMERGENCY PROVIDER REPORT REPORT#:[id number] REPORT STATUS: Signed DATE:06/27/21 TIME: 1544 PATIENT: DORA MCNEILL UNIT #: [id number] ROOM/BED: AGE: 51 SEX: M PCP PHYS: No Primary or Family Ph ysician SERVICE AUTHOR: Sabi Urias MD * ALL edits or amendments must be made on the Style for [employer]/computer document * HPI-Abd Pain M 40 and Over General Confirmed Patient Yes Patient Type New patient Initial Greet Date/Time 06/27/21 1531 Presentation Chief Complaint Abdominal pain Hx Obtained From Patient, EMS Sudden in Onset? No Onset Occurred Days ago (4) Symptom Duration Constant Progression since Onset Constant, Gradually wors ening Caused by No trauma by history Quality Same as prior, Aching, Cramping, Tightne ss Radiation Does not radiate. Severity: Onset Moderate Severity: Current Moderate Free Text HPI Notes Free Text HPI Notes 51-year-old male patient with a past cassie gical history of right sided colostomy and multiple abdominal surgeries due to a volvul us and obstructions in 1999 reports to the freestanding emergency department via [facility] complaining of right lower quadrant abdominal pain and distenti on in the region of his colostomy. Patient reports that this is been goi ng on for 4 days and that the intestine is hanging low in his back. Patient re ports that the current colostomy is 1-year-old with a persistently prol apse stoma. Patient denies fever, chills, chest pain, shortness of breath. Patient seen immediately upon arrival while still on EMS stretcher. Risk-Abd Pain M 40 and Over )( Abdominal Aortic Aneurysm Risk factors review ed Review of Systems ROS Statements All systems rev neg except as marked. Focused Review of Systems GI Reports: Abdominal pain. Past Medical History - Adult Stated Complaint STOMA INFLAMMATION Allergies Coded Allergies: No Known Allergies (04/28/21) Home Medications Active Scripts DICYCLOMINE (BENTYL) 10 MG PO TID DICYCLOMINE (BENTYL) 10 MG PO TID #10 TAB Prov: 05/01/21 ACIDOPHILUS/BULGARICUS (FLORANEX) 1 TAB PO TID ACIDOPHILUS/BULGARICUS (FLORANEX) 1 TAB PO TID #15 TABS Prov: 05/01/21 Additional Medical History bowel obstrution Additional Surgical History bowel resection colsotomy reversal of colostomy Additional Family History Denies Alcohol Use Denies EtOH use Drug Use Denies recreational drugs Other Social History Uses smokeless tobacco Additional Social History Patient is undomiciled Physical Exam Vital Signs Vital Signs First Documented: Result Date Time Pulse Ox 98 06/27 1535 B/P 131/84 06/27 1535 B/P Mean 99 06/27 1535 O2 Delivery Room air 06/27 153 Temp 37.0 06/27 153 Pulse 87 06/27 1535 Resp 16 06/27 153 Last Documented: Result Date Time Pulse Ox 99 06/27 1733 B/P 130/79 06/27 1733 B/P Mean 96 06/27 173 O2 Delivery Room air 06/27 173 Pulse 86 06/27 1733 Resp 16 06/27 1733 Temp 37.0 06/27 153 Review of Vital Signs Reviewed Focused PE General/Const General/Const Awake, Alert MS Head Head Normocephalic Eyes Eyes PERRL Ears/Nose/Throat Ears/Nose/Throat Airway patent, Mucous membrane s moist, Pharynx NL Resp/Chest Respiratory/Chest Breath sounds NL, Breath soun ds = bilat, No respiratory distress, No rales, No rhonchi, No wheezing Cardiovascular Cardiovascular Heart rate NL, Regular rhythm, H eart sounds NL, Peripheral circulation NL MS Back Back Inspection NL, Non-tender, No CVA tenderne ss Skin Skin Color NL, Warm, Dry, Turgor NL Neurologic Neurologic Oriented X3, Speech NL, No motor def icits, No sensory deficits Interpretation Diagnostics Lab Results Interpretation Results Laboratory Tests 06/27/21 1536: [Embedded Image Not Available] Laboratory Tests: 06/27 06/27 06/27 1603 1601 1536 Blood Gas Sodium (134 - 147 MEQ/L) 137 Potassium (3.4 - 5.0 MEQ/L) 4.7 Chloride (100 - 108 MEQ/L) 103 Ionized Calcium (1.12 - 1.32 MMOL/L) 1.26 Chemistry POC Creatinine (0.8 - 1.3 mg/dL) 1.6 H POC Glucose (mg/dL) (MG/DL) 96 Total Bilirubin (0.0 - 1.0 MG/DL) 0.5 GGT (5 - 85 UNITS/L) 14 AST (15 - 37 IUnit/L) 28 ALT (30 - 65 IUnit/L) 21 L Total Alk Phosphatase (20 - 125 IUNIT/L) 90 Total Protein (5.0 - 8.0 GM/DL) 7.5 Albumin (3.4 - 5.0 g/dL) 3.9 Amylase (25 - 125 UNITS/L) 65 Hematology WBC (3.5 - 11.0 K/uL) 7.7 RBC (4.00 - 5.60 M/uL) 4.58 Hgb (12.5 - 16.9 GM/DL) 14.3 Hct (40.0 - 54.0 %) 39.9 L MCV (81.0 - 99.0 fL) 87.1 MCH (27.0 - 31.0 pg) 31.2 H MCHC (33.0 - 37.0 GM/DL) 35.8 RDW (11.5 - 14.5 %) 15.0 H Plt Count (150 - 400 K/mm3) 327 MPV (8.8 - 13.1 FL) 9.6 Neut % (Auto) (40.0 - 76.0 %) Lymph % (Auto) (15.0 - 40.0 %) 31.7 Neut # (Auto) (1.8 - 7.6 K/uL) Lymph # (Auto) (1.0 - 3.8 K/uL) 2.4 Recent Impressions: RADIOLOGY - XR CHEST 1 V 06/27 1541 Report Impression - Status: SIGNED Entered: 06/27/2021 1558 IMPRESSION: Gaseous distention of stomach or col on elevates the left diaphragm. No acute cardiopulmonary finding s otherwise.. Impression By: [email or web address] - Chiara Esqueda. CAT SCAN - CT ABD PELVIS W/CONT 06/27 1620 Report Impression - Status: SIGNED Entered: 06/27/2021 1650 IMPRESSION: 1. 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 A peristomal fat containing hernia is present with ileostomy prolapse. There is no evidence of associated intestinal obstruction. 2. No additional acute CT abnormalities of the a bdomen or pelvis are identified. SL:131 Impression By: [place] - Marco Raman M.D. Re-Evaluation [facility] )( Re-Evaluation/Progress #1 Text/Dict Note no complaints. pt requests coffee Time of Re-Eval 1723 )( Re-Eval Status Improved Re-Eval Abdomen Soft, Non-tender ED Course Medication(s) Ordered Medication(s) Ordered: Central Nervous System Agents Sig/Elena Start time Last Medication Dose Route Stop Time Status Admin Morphine Sulfate 4 MG X1ED STA 06/27 1535 DC IV 06/27 1536 1553 Diagnostic Agents Sig/Elena Start time Last Medication Dose Route Stop Time Status Admin Iopamidol 100 ML .STK-MED ONE 06/27 1626 DC IV 06/27 1627 1626 Electrolytic, Caloric, And Yovanny Sig/Elena Start time Last Medication Dose Route Stop Time Status Admin Sodium Chloride 0 ASDIR PRN 06/27 1545 DCD IV 06/28 1435 Sodium Chloride 1,000 ML X1ED STA 06/27 1535 DC 06/27 IV 06/27 1634 1554 Gastrointestinal Drugs Sig/Elena Start time Last Medication Dose Route Stop Time Status Admin Ondansetron HCl 4 MG X1ED PRN PRN 06/27 1545 DC 06/27 IV 1553 Patient Discharge Departure Vital Signs/Condition Vital Signs First Documented: Result Date Time Pulse Ox 98 06/27 1535 B/P 131/84 06/27 1535 B/P Mean 99 06/27 1535 O2 Delivery Room air 06/27 1535 Temp 37.0 06/27 153 Pulse 87 06/27 1535 Resp 16 06/27 1535 Last Documented: Result Date Time Pulse Ox 99 06/27 1733 B/P 130/79 06/27 1733 B/P Mean 96 06/27 1733 O2 Delivery Room air 06/27 173 Pulse 86 06/27 1733 Resp 16 06/27 1733 Temp 37.0 06/27 1535 All vital signs available at the time of this en try have been reviewed. Clinical Impression Clinical Impression Primary Impression: Gas pain Disposition Decision Discharge )( Discharged to Home Yes )( Time 1727 )( Date 06/27/21 Discharge/Care Plan Counseled Regarding Diagnosi s, Lab results, Imaging studies, Need for follow-up, When to return to ED Patient Instructions ED Excess Gas Referrals PRIMARY CARE OUTPT CLINIC: As Needed Discharge Note I have spoken with the patie nt and/or caregivers. I have explained the patient's condition, diagnoses and phillip atment plan based on the information available to me at this time. I have answered the patient's and/ or caregiver's questions and addressed any concerns. The patient and/or careg piyush have as good an understanding of the patient 's diagnosis, condition and treatment plan as can be expected at this point. The vital signs have bee n stable. The patient's condition is stable and appr opriate for discharge from the emergency department. The patient will pursue further outpatient evalu ation with the primary care physician or other designated or consulting phys ician as outlined in the discharge instructions. The patient and/or caregivers are agreeable to this plan of care and follow-up instructions have been exp lained in detail. The patient and/or caregivers have received these instructio ns in written format and have expressed an understanding of the discharge inst ructions. The patient and/or caregivers are aware that any significant change in condition or worsening of symptoms should prompt an immediate return to [facility] or the closest emergency department or a call to 911. at 1239 RPT #:[id number] END OF REPORT 2021-04-30 [facility] 12:16:00-00:00 [facility] ([facility]) Hospitalist Progress Note REPORT#:[id number] REPORT STATUS: Signed DATE:04/30/21 TIME: 1216 PATIENT: DORA MCNEILL UNIT #: [id number] ROOM/BED: [place] [address] : 70 AGE: 51 SEX: M ATTEND: Balta Leonard DO ADM AUTHOR: Yvon Loredo MD * ALL edits or amendments must be made on the [employer]/computer document * Subjective Chief Complaint: Follow for abdominal pain, cramps and ALMA in [facility] ient with history of volvulus and megacolon status post colostomy. Patient seen and examined at bedside this mornin g, abdominal pain is better though still there, denies any nausea, reports i mprovement with cramps, still with increased stool passage. Objective General VS/I O: Vital Signs: Date Time Temp Pulse Resp B/P B/P Pulse O2 O2 F low FiO2 Mean Ox Delivery Rate 04/30 1145 97.9 68 14 104/69 80.9 99 Room air 04/30 0749 97.7 67 16 106/67 79.6 100 Room air 04/30 0442 97.7 62 92/60 70.4 98 04/30 0009 97.7 68 17 95/60 71.2 98 Room air 98 04/29 2021 97.5 70 17 100/66 77.6 99 Room air 9 9 04/29 1657 97.7 61 15 103/68 79.5 99 Room air 24 hour I O ending at 0700: 04/30 0700 04/29 1900 Intake Total 1525.00 1460.00 Output Total 5 Balance 1520.00 1460.00 Intake, IV 1200.00 600.00 Intake, Oral 325 860 Number 3 Bowel Movements Number Voids 3 4 Output, Stool 5 PATIENT WEIGHT: Weight (lb): Weight (oz): Weight (kg): 70.000 Medications: Active Meds + DC'd Last 24 Hrs Dicyclomine HCl 10 MG TID PO Loperamide HCl 4 MG BID PC PO Enoxaparin Sodium 40 MG BEDTIME SUBQ Sodium Chloride 1,000 ML .Q10H IV Acetaminophen 650 MG Q4H PRN PRN PO Acetaminophen/Codeine Phosphate 1 TAB Q6H PRN FL N PO Al Hydrox/Mg Hydrox/Simethicone 30 ML Q4H PRN FL N PO Docusate Sodium 100 MG BID PRN PRN PO Hydralazine HCl 10 MG Q6H PRN PRN IV Morphine Sulfate 4 MG Q4H PRN PRN IV Ondansetron HCl 4 MG Q4H PRN PRN IV Sodium Chloride 0 ASDIR PRN IV (DC) Physical Exam General appearance: alert, awake, oriented Head/Eyes: EOMI, normal conjunctiva/sclera ENT: normal nose, normal pharynx Neck: non-tender, supple/no meningismus Cardiovascular: normal heart sounds, regular rat e rhythm Respiratory: aerating well, symmetric expansion Abdomen: normal bowel sounds, soft, Ostomy, surg ical scar along abdominal midline Extremities: moves all, no edema Neuro/OCEANOLOGIST: alert, oriented X 3, normal speech Skin: dry, intact Psychiatry: normal affect, normal judgment/insig ht Results Findings/Data: Laboratory Tests 04/30 500 Chemistry Sodium (134 - 147 mEq/L) 143 Potassium (3.4 - 5.0 mEq/L) 3.9 Chloride (100 - 108 mEq/L) 110 H Carbon Dioxide (21 - 33 mEq/l) 25 Anion Gap (0 - 20) 12 BUN (7 - 18 mg/dL) 17 Creatinine (0.6 - 1.3 mg/dL) 1.3 Glomerular Filtr Rate (90 - 95) 58.2 L Glucose (70 - 110 mg/dL) 78 Calcium (8.0 - 10.5 mg/dL) 8.4 Laboratory Tests 04/30 500 Hematology WBC (4.5 - 11.0 x10 3/uL) 3.6 L RBC (4.00 - 5.60 x10 6/uL) 3.73 L Hgb (12.5 - 16.9 g/dL) 11.5 L Hct (37.5 - 50.7 %) 36.4 L MCV (81.0 - 99.0 fL) 97.6 MCH (27.0 - 33.0 pg) 30.8 MCHC (33.0 - 37.0 g/dL) 31.6 L RDW (11.5 - 14.5 %) 13.5 Plt Count (150 - 400 x10 3/uL) 210 MPV (7.0 - 9.0 fL) 10.2 H Neut % (Auto) (56.0 - 77.0 %) 46.5 L Lymph % (Auto) (14.0 - 32.0 %) 39.4 H Peach % (Auto) (4.8 - 9.0 %) 9.8 H Eos % (Auto) (0.3 - 3.7 %) 3.4 Baso % (Auto) (0.0 - 2.0 %) 0.6 Neut # (Auto) (2.0 - 7.6 x10 3/uL) 1.67 L Lymph # (Auto) (1.0 - 3.8 x10 3/uL) 1.41 Peach # (Auto) (0.1 - 0.8 x10 3/uL) 0.35 Eos # (Auto) (0.0 - 0.2 x10 3/uL) 0.12 Baso # (Auto) (0.0 - 0.2 x10 3/uL) 0.02 Abs Immat Gran (auto) (0.00 - 0.03 x10 3/uL) 0. 01 Add Manual Diff NO Immature Gran % (0.0 - 2.0 %) 0.3 Nucleated RBC % (0 - 0 %) 0.0 Nucleated RBCs # (Man) (0.0 - 0.1 x10 3/uL) 0.0 0 Diagnosis, Assessment Plan Free Text DxA P Notes Free text DxA P notes: Abdominal pain: CT abdomen pelvis suggestive of postoperative changes of subtotal colectomy and right lower quadrant ileostomy, mild long segmen t bowel wall thickening compatible with enteritis without any obstructio n. Continue supportive management with Bentyl, as n eeded Tylenol for pain. ALMA: Likely due to increased ostomy output from enter itis, continue IVF, ordered Imodium x2 doses. Monitor infection, bariatric surgeons. Due to progressive abdominal subcu. Full code. Plan discussed with patient, answered all the qu estions. Quality: [facility] Current Medications Current medication review: I attest that the foregoing medication list in t medical record is true, accurate, and complete to the best of my knowled ge. VTE Prophylaxis VTE prophylaxis initiated: yes Electronically Signed by Yvon Loredo MD on at 1223 RPT #:[id number] END OF REPORT 2021-04-29 [facility] 12:20:00-00:00 [facility]) Clinical Note REPORT#:[id number] REPORT STATUS: Signed DATE:04/29/21 TIME: 1220 PATIENT: DORA MCNEILL UNIT #: [id number] ROOM/BED: [place] [address] : 70 AGE: 51 SEX: M ATTEND: Balta Leonardher A DO ADM AUTHOR: Yvon Loredo MD * ALL edits or amendments must be made on the [employer] document * Clinical Note Note: Patient seen and examined at bedside this annabelle sol, patient was admitted this morning by my colleague Dr. Mckeon, noted findi ngs on work-up, still with increased ostomy output, giv en a dose of Imodium and increased IVF to 100 cc/h, additional plan as outlined in Dr. Hampton's not e. Electronically Signed by Yvon Loredo MD on at 1222 RPT #:[id number] END OF REPORT 2021-04-29 [facility] 05:43:00-00:00 [facility] ([facility]) Hospitalist History Physical REPORT#:[id number] REPORT STATUS: Signed DATE:04/29/21 TIME: 542 PATIENT: DORA MCNEILL UNIT #: [id number] ROOM/BED: [place] [address] : 70 AGE: 51 SEX: M ATTEND: Balta Leonard ristopher A DO ADM AUTHOR: Montserrat Leonard DO * ALL edits or amendments must be made on the [employer]/computer document * History of Present Illness HPI Chief complaint: Abdominal pain PCP: PCP: No Primary or Family Physician HPI: 51-year-old male with past m edical history of right-sided colostomy due to prior volvulus and megacolon prese nts with complaint of left lower quadrant abdominal pain. Patient currently rates his pain 6 /10 in severity. His current colostomy is 1-year-old with a persist ently prolapsed stoma. Patient denies any nausea or vomiting, is passing liquid yellow stool in his colostomy. CT abdomen with contrast shows bowel wall thickening com patible with enteritis. POC creatinine is elevated at 1.9. History Past Medical Surgical Hx Additional medical history: bowel obstrution Additional surgical history: bowel resection colsotomy reversal of colostomy Family History Additional family history: Denies Social History Alcohol use: Denies EtOH use Drug use: Denies recreational drugs Smoking status: Smoking status for patients 13 years old or old er: Never Smoker Other social history: Uses smokeless tobacco Additional social history: Patient is undomiciled Medication/Allergy-Vaccine Hx Medications: Home Medications: No Known Home Medications Allergies: Coded Allergies: No Known Allergies (04/28/21) Review of Systems Free Text ROS Notes Free Text ROS Notes: 14 point review of systems o btained, pertinent positives and negatives noted in HPI Physical Exam VS/I O: Vital Signs Date Temp Pulse Resp B/P B/P Mean Pulse Ox FiO2 04/28-04/29 97.5-98.4 58-80 16-20 100-123/51-79 69-93.7 97-100 99-100 Last Documented: Result Date Time Pulse Ox 100 04/29 0508 B/P 100/64 04/29 0508 B/P Mean 76.4 04/29 0508 FiO2 100 04/29 0508 O2 Delivery Room air 04/29 0508 Temp 97.5 04/29 0508 Pulse 67 04/29 0508 Resp 17 04/29 0508 24 hour I O ending at 0700: 04/29 0700 04/28 1900 Intake Total 1000.00 Output Total Balance 1000.00 Intake, IV 1000.00 Patient 70 kg Weight Weight Standing scale Measurement Method Patient Weight and BMI Weight (kg): 70.000 BMI: 20.4 Results Findings/Data: Laboratory Tests: 04/29 04/28 04/28 04/28 0327 [id number] Blood Gas Sodium (134 - 147 MEQ/L) 139 Potassium (3.4 - 5.0 MEQ/L) 4.3 Chloride (100 - 108 MEQ/L) 105 Ionized Calcium (1.12 - 1.32 MMOL/L) 1.12 Chemistry Sodium (134 - 147 mEq/L) 141 Potassium (3.4 - 5.0 mEq/L) 4.0 Chloride (100 - 108 mEq/L) 109 H Carbon Dioxide (21 - 33 mEq/l) 27 Anion Gap (0 - 20) 9 BUN (7 - 18 mg/dL) 19 H Creatinine (0.6 - 1.3 mg/dL) 1.4 H POC Creatinine (0.8 - 1.3 mg/dL) 1.9 H Glomerular Filtr Rate (90 - 95) 53.4 L Glucose (70 - 110 mg/dL) 89 POC Glucose (mg/dL) (MG/DL) 92 Calcium (8.0 - 10.5 mg/dL) 9.1 Hematology WBC (3.5 - 11.0 K/uL) 5.9 RBC (4.00 - 5.60 M/uL) 3.89 L Hgb (12.5 - 16.9 GM/DL) 12.0 L Hct (40.0 - 54.0 %) 35.8 L MCV (81.0 - 99.0 fL) 92.0 MCH (27.0 - 31.0 pg) 30.8 MCHC (33.0 - 37.0 GM/DL) 33.5 RDW (11.5 - 14.5 %) 14.2 Plt Count (150 - 400 K/mm3) 206 MPV (8.8 - 13.1 FL) 10.4 Neut % (Auto) (40.0 - 76.0 %) 52.7 Lymph % (Auto) (15.0 - 40.0 %) 36.5 Mixed Cells % (Auto) (3.0 - 15.0 %) 10.8 Neut # (Auto) (1.8 - 7.6 K/uL) 3.1 Lymph # (Auto) (1.0 - 3.8 K/uL) 2.2 Mixed Cells # (0.1 - 0.8 k/mm3) 0.6 Serology SARS CoV-2 RNA Rapid OLENA (Negative) Negative Laboratory Tests 04/29/21 0327: [Embedded Image Not Available] 04/28/21 1813: [Embedded Image Not Available] Radiology data: Recent Impressions: CAT SCAN - CT ABD PELVIS W/CONT 04/28 1914 Report Impression - Status: SIGNED Entered: 04/28/20211955 IMPRESSION: 1. Postoperative changes of subtotal colectomy a nd right lower quadrant ileostomy. 2. Mild long segment bowel wall thickening/mucos al prominence compatible with an enteritis. No evidence for ob struction. Impression By: Magi Nichols M.D. Results: labs reviewed, vital signs stable Free Text PE Notes Free Text PE Notes: General appearance: alert, awake, oriented Head/Eyes: atraumatic, normocephalic ENT: moist mucosal membranes, normal pharynx Neck: non-tender, supple/no meningismus, no JVD Cardiovascular: normal capillary refill, normal heart sounds, regular rate rhythm Respiratory: aerating well, clear to auscultatio n, symmetric expansion Abdomen: Ostomy in place, mild tenderness to mid line abdomen, normal bowel sounds, soft Extremities: no clubbing, no cyanosis, no edema Neuro/OCEANOLOGIST: alert, oriented X 3, CNII-XII intact Skin: dry, intact Psychiatry: normal affect, normal judgment/insig ht Diagnosis, Assessment Plan Problem List/A P: 1. Abdominal pain May be related to mild enteritis Will consider surgical evaluation if it does no t resolve Tylenol, Tylenol 3, morphine as needed for pain control 2. ARF (acute renal failure) Creatinine 1.4 on admission Will start on IV normal saline Resuscitation discussion: Discussed with: patient Code status: full code [facility] Current Medications Current medication review: I attest that the foregoing medication list in [facility] medical record is true, accurate, and complete to the best of my knowled ge. VTE Prophylaxis VTE prophylaxis initiated: yes at 0713 [facility] #:[id number] END OF REPORT 2021-04-28 [facility] 18:11:00-00:00 [facility] ([facility]) EMERGENCY PROVIDER REPORT REPORT#:[id number] REPORT STATUS: Signed DATE:04/28/21 TIME: 1810 PATIENT: DORA MCNEILL UNIT #: [id number] ROOM[address]BED: [address] AGE: 51 SEX: M PCP PHYS: No Primary or Family Ph ysician SERVICE AUTHOR: Montserrat Benoit MD * ALL edits or amendments must be made on the [employer]/computer document * Montserrat Benoit 04/28/211810: HPI-Abd Pain M 40 and Over General Initial Greet Date/Time 04/28/211714 Presentation Sudden in Onset? No Free Text HPI Notes Free Text HPI Notes 51-year-old male with right-sided colostomy pre sents for left lower quadrant abdominal pain. Pain is constant and rated as mi ld, 3/10. Patient has history of multiple colostomies dating back to volvulus (per patient description) in 1999, and current colostomy is 1-year-old with persistently prolapsed stoma. He has no nausea or vomiting and is passing liquid yellow stool. Patient is undomiciled. Review of Systems ROS Statements All systems rev neg except as marked. Focused Review of Systems Constitutional Denies: Fever. GI Reports: Abdominal pain. Denies: Nausea, Vomitin g. Past Medical History - Adult Stated Complaint OSTOMY BAG COMPLICATIONS Allergies Coded Allergies: No Known Allergies (04/28/21) Home Medications Discontinued Scripts POLYETHYLENE GLYCOL 3350 (MIRALAX) 17 GM PO BID POLYETHYLENE GLYCOL 3350 (MIRALAX) 17 GM PO BID #60 PACKET Prov: 02/25/20 DC: 04/29/21 0258 Patient stopped taking METOCLOPRAMIDE (REGLAN) 5 MG PO QID METOCLOPRAMIDE (REGLAN) 5 MG PO QID #60 TABS Prov: 02/25/20 DC: 04/29/21 0258 Patient stopped taking Discontinued Reported Medications [STOOL SOFTNER] 100 MG PO BID PANTOPRAZOLE DR (PROTONIX) 40 MG PO DAILY Physical Exam Vital Signs Vital Signs First Documented: Result Date Time Pulse Ox 98 04/28 2100 B/P 111/58 04/28 2100 B/P Mean 75 04/28 2100 O2 Delivery Room air 04/28 2100 Temp 36.9 04/28 2100 Pulse 80 04/28 2100 Resp 04/28 Last Documented: Result Date Time Pulse Ox 98 04/28 2100 B/P 111/58 04/28 2100 B/P Mean 75 04/28 2100 O2 Delivery Room air 04/28 2100 Temp 36.9 04/28 2100 Pulse 80 04/28 2100 Resp 04/28 Review of Vital Signs Reviewed Focused PE General/Const General/Const Awake, Alert, No acute distress MS Head Head Normocephalic Eyes Eyes EOMI, No scleral icterus Ears/Nose/Throat Ears/Nose/Throat Airway patent Resp/Chest Respiratory/Chest Breath sounds NL, Breath soun ds = bilat Cardiovascular Cardiovascular Heart rate NL, Regular rhythm Abdomen/GI Abdomen/GI Soft, No distention Text/Dict Notes Very mild LLQ tenderness without rebound tendern ess or guarding. Right colostomy noted with liquid yellow stool and pro lapsed stoma -pink and peristalsing, no blood. MS Back Back Full range of motion Skin Skin No rash, Warm, Dry Neurologic Neurologic Speech NL, No motor deficits, Gait N L Re-Evaluation MDM ED Course Medication(s) Ordered Medication(s) Ordered: Central Nervous System Agents Sig/Elena Start time Last Medication Dose Route Stop Time Status Admin Morphine Sulfate 4 MG X1ED STA 04/28 1812 DC IV 04/28 Diagnostic Agents Sig/Elena Start time Last Medication Dose Route Stop Time Status Admin Iopamidol 100 ML .STK-MED ONE 04/28 1917 DC IV 04/28 1918 191 Electrolytic, Caloric, And Yovanny Sig/Elena Start time Last Medication Dose Route Stop Time Status Admin Sodium Chloride 0 ASDIR PRN 04/28 181 AC IV 04/29 1712 Sodium Chloride 1,000 ML X1ED STA 04/28 1812 DC 04/28 IV 04/28 Patient Discharge Departure Discharge/Care Plan (Auto) Prescriptions Current Visit Scripts DICYCLOMINE (BENTYL) 10 MG PO TID DICYCLOMINE (BENTYL) 10 MG PO TID #10 TAB ACIDOPHILUS/BULGARICUS (FLORANEX) 1 TAB PO TID ACIDOPHILUS/BULGARICUS (FLORANEX) 1 TAB PO TID #15 TABS Anh Gannon 04/28/212057: HPI-Abd Pain M 40 and Over Presentation Chief Complaint Abdominal pain Interpretation Diagnostics Lab Results Interpretation Results Laboratory Tests 04/28/21 1813: [Embedded Image Not Available] Laboratory Tests: 04/28 04/28 1858 3 Blood Gas Sodium (134 - 147 MEQ/L) 139 Potassium (3.4 - 5.0 MEQ/L) 4.3 Chloride (100 - 108 MEQ/L) 105 Ionized Calcium (1.12 - 1.32 MMOL/L) 1.12 Chemistry POC Creatinine (0.8 - 1.3 mg/dL) 1.9 H POC Glucose (mg/dL) (MG/DL) 92 Hematology WBC (3.5 - 11.0 K/uL) 5.9 RBC (4.00 - 5.60 M/uL) 3.89 L Hgb (12.5 - 16.9 GM/DL) 12.0 L Hct (40.0 - 54.0 %) 35.8 L MCV (81.0 - 99.0 fL) 92.0 MCH (27.0 - 31.0 pg) 30.8 MCHC (33.0 - 37.0 GM/DL) 33.5 RDW (11.5 - 14.5 %) 14.2 Plt Count (150 - 400 K/mm3) 206 MPV (8.8 - 13.1 FL) 10.4 Neut % (Auto) (40.0 - 76.0 %) 52.7 Lymph % (Auto) (15.0 - 40.0 %) 36.5 Mixed Cells % (Auto) (3.0 - 15.0 %) 10.8 Neut # (Auto) (1.8 - 7.6 K/uL) 3.1 Lymph # (Auto) (1.0 - 3.8 K/uL) 2.2 Mixed Cells # (0.1 - 0.8 k/mm3) 0.6 Recent Impressions: CAT SCAN - CT ABD PELVIS W/CONT 04/28 1914 Report Impression - Status: SIGNED Entered: 04/28/20211955 IMPRESSION: 1. Postoperative changes of subtotal colectomy a nd right lower quadrant ileostomy. 2. Mild long segment bowel wall thickening/mucos al prominence compatible with an enteritis. No evidence for ob struction. Impression By: Magi Nichols M.D. Re-Evaluation MDM Free Text MDM Notes Free Text MDM Notes 9:00 PM: Care of this patien t was transferred to or by Dr. Benoit. At the time of sign out, patient had laboratory studies and a C T abdomen/pelvis pending. His laboratory studies were personally reviewed and he had no evidence of leukocytosis, anemia or thro mbocytopenia. He does have evidence of acute kidney injury with a creatinine of 1.9. I reviewed his chart record and his previous creatinine of February, was completely normal. He has already received a liter of fluids. His CT Abdomen/pe lvis revealed findings consistent with enteritis but no evidence of small bowel o bstruction, diverticulitis or other acute pathology. Patient will need inpatient admission for furthe r management of acute kidney injury. Discussed the patient's case with Dr. Aisha covington has agreed to admit the patient under his service. Patient has been info rmed of his laboratory and radiographic results and plan for admission and is agreeable with this plan. )( Re-Evaluation/Progress #1 Time of Re-Eval 829 )( Re-Eval Status Improved, On reassessment, lisbeth sinclair reports his pain has improved. Patient Discharge Departure Vital Signs/Condition Vital Signs First Documented: Result Date Time Pulse Ox 98 04/28 2100 B/P 111/58 04/28 2100 B/P Mean 75 04/28 2100 O2 Delivery Room air 04/28 2100 Temp 36.9 04/28 2100 Pulse 80 04/28 2100 Resp 20 04/28 2100 Last Documented: Result Date Time Pulse Ox 98 04/28 2100 B/P 111/58 04/28 2100 B/P Mean 75 / 2100 O2 Delivery Room air 04/28 2100 Temp 36.9 04/28 2100 Pulse 80 04/28 2100 Resp 20 04/28 2100 All vital signs available at the time of this en try have been reviewed. Condition Stable Clinical Impression Clinical Impression Primary Impression: Enteritis Secondary Impressions: Abdominal pain, Acute kid ulises injury Time of Impression 2057 Disposition Decision Admit Admit Physician Name Montserrat Leonard DO Request Time 2058 Request Date 04/28/21 )( Admission Accepts Yes )( Accepted Time 2058 )( Accepted Date 04/28/21 Call Information agrees with eval, agrees with plan Discharge/Care Plan Admit Note I have spoken with the patie nt and/or caregivers. I have explained the patient's condition, diagnoses and phillip atment plan based on the information available to me at this time. I have answered the patient's and/ or caregiver's questions and addressed any concerns. The patient and/or careg piyush have as good an understanding of the patient 's diagnosis, condition and treatment plan as can be expected at this point. The patient has been stabilized within the capability of the emergency department. The patient wi ll be transported for further care and management or will be moved to an observation or inpatient service. I have communicated with the staff or medical p ractitioner taking over this patient's care. at 210 at 2102 RPT #:[id number] END OF REPORT 2021-04-28 [facility] 18:11:00-00:00 [facility] ([facility] EMERGENCY PROVIDER REPORT REPORT#:[id number] REPORT STATUS: Signed DATE:04/28/21 TIME: 1810 PATIENT: DORA MCNEILL UNIT #: [id number] ROOM/BED: AGE: 51 SEX: M PCP PHYS: No Primary or Family Ph ysician SERVICE AUTHOR: Montserrat Benoit MD * ALL edits or amendments must be made on the [employer]/computer document * Montserrat Benoit 04/28/211810: HPI-Abd Pain M 40 and Over General Initial Greet Date/Time 04/28/21 1715 Free Text HPI Notes Free Text HPI Notes 51-year-old male with right-sided colostomy pre sents for left lower quadrant abdominal pain. Pain is constant and rated as mi ld, 3/10. Patient has history of multiple colostomies dating back to volvulus (per patient description) in 1999, and current colostomy is 1-year-old with persistently prolapsed stoma. He has no nausea or vomiting and is passing liquid yellow stool. Patient is undomiciled. Review of Systems ROS Statements All systems rev neg except as marked. Focused Review of Systems Constitutional Denies: Fever. GI Reports: Abdominal pain. Denies: Nausea, Vomitin g. Past Medical History - Adult Stated Complaint OSTOMY BAG COMPLICATIONS Allergies Coded Allergies: No Known Allergies (02/24/20) Home Medications Active Scripts POLYETHYLENE GLYCOL 3350 (MIRALAX) 17 GM PO BID POLYETHYLENE GLYCOL 3350 (MIRALAX) 17 GM PO BID #60 PACKET Prov: 02/25/20 METOCLOPRAMIDE (REGLAN) 5 MG PO QID METOCLOPRAMIDE (REGLAN) 5 MG PO QID #60 TABS Prov: 02/25/20 Reported Medications [STOOL SOFTNER] 100 MG PO BID PANTOPRAZOLE DR (PROTONIX) 40 MG PO DAILY Physical Exam Vital Signs Review of Vital Signs Reviewed Focused PE General/Const General/Const Awake, Alert, No acute distress MS Head Head Normocephalic Eyes Eyes EOMI, No scleral icterus Ears/Nose/Throat Ears/Nose/Throat Airway patent Resp/Chest Respiratory/Chest Breath sounds NL, Breath soun ds = bilat Cardiovascular Cardiovascular Heart rate NL, Regular rhythm Abdomen/GI Abdomen/GI Soft, No distention Text/Dict Notes Very mild LLQ tenderness without rebound tendern ess or guarding. Right colostomy noted with liquid yellow stool and pro lapsed stoma -pink and peristalsing, no blood. MS Back Back Full range of motion Skin Skin No rash, Warm, Dry Neurologic Neurologic Speech NL, No motor deficits, Gait N L Re-Evaluation MDM ED Course Medication(s) Ordered Medication(s) Ordered: Central Nervous System Agents Sig/Elena Start time Last Medication Dose Route Stop Time Status Admin Morphine Sulfate 4 MG X1ED STA 04/28 1812 DC IV 04/28 Diagnostic Agents Sig/Elena Start time Last Medication Dose Route Stop Time Status Admin Iopamidol 100 ML .STK-MED ONE 04/28 1917 DC IV 04/28 Electrolytic, Caloric, And Yovanny Sig/Elena Start time Last Medication Dose Route Stop Time Status Admin Sodium Chloride 0 ASDIR PRN 04/28 1815 AC IV 04/29 171 Sodium Chloride 1,000 ML X1ED STA 04/28 1812 DC 04/28 IV 04/28 Patient Discharge Departure Vital Signs/Condition Vital Signs All vital signs available at the time of this en try have been reviewed. Anh Gannon 04/28/212057: HPI-Abd Pain M 40 and Over Presentation Chief Complaint Abdominal pain Interpretation Diagnostics Lab Results Interpretation Results Laboratory Tests: 04/28 1858 Blood Gas Sodium (134 - 147 MEQ/L) 139 Potassium (3.4 - 5.0 MEQ/L) 4.3 Chloride (100 - 108 MEQ/L) 105 Ionized Calcium (1.12 - 1.32 MMOL/L) 1.12 Chemistry POC Creatinine (0.8 - 1.3 mg/dL) 1.9 H POC Glucose (mg/dL) (MG/DL) 92 Recent Impressions: CAT SCAN - CT ABD PELVIS W/CONT 04/28 1914 Report Impression - Status: SIGNED Entered: 04/28/20211955 IMPRESSION: 1. Postoperative changes of subtotal colectomy a nd right lower quadrant ileostomy. 2. Mild long segment bowel wall thickening/mucos al prominence compatible with an enteritis. No evidence for ob struction. Impression By: Magi Nichols M.D. Re-Evaluation MDM Free Text MDM Notes Free Text MDM Notes 9:00 PM: Care of this patien t was transferred to or by Dr. Benoit. At the time of sign out, patient had laboratory studies and a C T abdomen/pelvis pending. His laboratory studies were personally reviewed and he had no evidence of leukocytosis, anemia or thro mbocytopenia. He does have evidence of acute kidney injury with a creatinine of 1.9. I reviewed his chart record and his previous creatinine of February, was completely normal. He has already received a liter of fluids. His CT Abdomen/pe lvis revealed findings consistent with enteritis but no evidence of small bowel o bstruction, diverticulitis or other acute pathology. Patient will need inpatient admission for furthe r management of acute kidney injury. Discussed the patient's case with Dr. Aisha covington has agreed to admit the patient under his service. Patient has been info rmed of his laboratory and radiographic results and plan for admission and is agreeable with this plan. )( Re-Evaluation/Progress #1 Time of Re-Eval 0830 )( Re-Eval Status Improved, On reassessment, pat ient reports his pain has improved. Patient Discharge Departure Vital Signs/Condition Condition Stable Clinical Impression Clinical Impression Primary Impression: Enteritis Secondary Impressions: Abdominal pain, Acute kid ulises injury Time of Impression 2057 Disposition Decision Admit Admit Physician Name Montserrat Leonard Request Time 2058 Request Date 04/28/21 )( Admission Accepts Yes )( Accepted Time 2058 )( Accepted Date 04/28/21 Call Information agrees with eval, agrees with plan Discharge/Care Plan Admit Note I have spoken with the patie nt and/or caregivers. I have explained the patient's condition, diagnoses and phillip atment plan based on the information available to me at this time. I have answered the patient's and/ or caregiver's questions and addressed any concerns. The patient and/or careg piyush have as good an understanding of the patient 's diagnosis, condition and treatment plan as can be expected at this point. The patient has been stabilized within the capability of the emergency department. The patient wi ll be transported for further care and management or will be moved to an observation or inpatient service. I have communicated with the staff or medical p ractitioner taking over this patient's care. Electronically Signed by Anh Gannon DO on 0 04/28/21 at 2103 RPT #:[id number] END OF REPORT 2020-02-25 [facility] 11:14:00-00:00 [facility] ([facility]) Hospitalist Discharge Summary REPORT#:[id number] REPORT STATUS: Signed DATE:02/25/20 TIME:1114 PATIENT: DORA MCNEILL UNIT #: [id number] ROOM/BED: [place] [id number] : 70 AGE: 50 SEX: M ATTEND: Lucia Perea MD ADM AUTHOR: Mark Perea MD * ALL edits or amendments must be made on the [employer]/computer document * PCP PCP Discharge to: home General Information Discharge date: 02/26/20 Hospital course: Chronic Megacolon/ Colonic dilation Abdominal Distention Diarrhea Nausea/Vomiting 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 Pain is 9 out of 10 . Pt has also been complaining of diarrhea, nausea and vomitin g. Abdominal CT shows chronic colonic dilation ,Has been on trial for Reglan. Patient was monitored closely and started on n.p.o. and bowel rest along with IV fluids. GI was consulted. Surgical consult was also made recommended conse rvative management with outpatient follow-up with possible ostomy if not better with conservative management Patient was started on liquid diet and a dvised to stay on full liquid diet for now. He wanted to go home and is being discharge d home today in a stable condition with and advised t o follow-up with PCP in 1 week and also with GI and surgery as outpatient Med Rec Med Rec Discharge meds: Continue taking these medications: [STOOL SOFTNER] MG 100 MILLIGRAM ORAL TWICE DAILY. Instructions: TAKE TWICE DAILY PANTOPRAZOLE DR (PROTONIX) 40 MG TAB.DR 40 MILLIGRAM ORAL DAILY. Start taking the following new medications: POLYETHYLENE GLYCOL 3350 (MIRALAX) 17 GM POWDER 17 GRAM ORAL TWICE DAILY. Qty = 60 No Refills METOCLOPRAMIDE (REGLAN) 5 MG TAB 5 MILLIGRAM ORAL FOUR TIMES A DAY. Qty = 60 No Refills Discharge Instructions Diet: full liquid Activity: as tolerated Discharge management: greater than 30 mins Follow-up Appointments PCP: PCP: No Primary or Family Physician Follow up timeframe: In 1-2 weeks Attending Physician: Attending Physician: Mark Perea MD Consulting provider 1: Provider 1: Drea Burch MD Specialty: GENERAL SURGERY Follow up timeframe: In 1-2 weeks Objective General VS/I O: Vital Signs: Temp Pulse Resp B/P B/P Pulse O2 O2 Flow FiO2 Mean Ox Delivery Rate 97.9 61 16 104/73 83.4 99 Room air 98.2 80 16 118/78 91.3 97 Room air 97.7 65 18 115/81 92.5 96 Room air 97.9 59 18 122/84 96.3 99 97.7 53 18 112/77 89.0 99 97.5 54 16 108/71 83.3 99 Room air Physical Exam General appearance: alert, awake Head/Eyes: atraumatic, clear cornea ENT: moist mucosal membranes, normal dentition, normal ear left Neck: full range of motion, non-tender Cardiovascular: normal capillary refill, normal heart sounds, regular rate rhythm Respiratory: aerating well, clear to auscultatio n, symmetric expansion, no distress Abdomen: distended, tenderness Extremities: no cyanosis, no edema Musculoskeletal: normal inspection, painless ran ge of motion Skin: Deep abad Psychiatry: normal affect, normal judgment/insig ht at 1652 RPT #: [id number] END OF REPORT 2020-02-25 [facility] 08:21:00-00:00 [facility] Hospitalist Progress Note REPORT#:[id number] REPORT STATUS: Signed DATE:02/25/20 TIME:820 PATIENT: DORA MCNEILL UNIT #: [id number] ROOM/BED: [place] [id number] : 70 AGE: 50 SEX: M ATTEND: Lucia Perea MD ADM AUTHOR: Mark Perea MD * ALL edits or amendments must be made on the [employer]/computer document * Subjective Chief Complaint: Abdominal pain better Still distended Objective General VS/I O: Vital Signs: Date Time Temp Pulse Resp B/P B/P Pulse O2 O2 F low FiO2 Mean Ox Delivery Rate 02/24 1043 97.9 61 16 104/73 83.4 99 Room air 02/24 0806 98.2 80 16 118/78 91.3 97 Room air 02/24 0444 97.7 65 18 115/81 92.5 96 Room air 02/23 2323 97.9 59 18 122/84 96.3 99 02/23 2104 97.7 53 18 112/77 89.0 99 02/23 1559 97.5 54 16 108/71 83.3 99 Room air 24 hour I O ending at 0700: 02/24 0700 02/23 1900 Intake Total 450.00 Output Total Balance 450.00 Intake, IV 450.00 Patient Weight Weight (lb): Weight (oz): Weight (kg): 68.182 Medications: Active Meds + DC'd Last 24 Hrs Polyethylene Glycol 17 GM BID PO Pantoprazole Sodium 40 MG DAILY IV Metoclopramide HCl 5 MG Q6HR IV (CKD) Acetaminophen 650 MG Q4H PRN PRN PO Morphine Sulfate 2 MG Q3H PRN PRN IV Ondansetron HCl 4 MG Q4H PRN PRN IV Sodium Chloride 1,000 ML .[id number] IV Physical Exam General appearance: alert, awake Head/Eyes: atraumatic, clear cornea ENT: moist mucosal membranes, normal dentition, normal ear left Neck: full range of motion, non-tender Cardiovascular: normal capillary refill, normal heart sounds, regular rate rhythm Respiratory: aerating well, clear to auscultatio n, symmetric expansion, no distress Abdomen: distended, tenderness Extremities: no cyanosis, no edema Musculoskeletal: normal inspection, painless ran ge of motion Skin: Deep abad Psychiatry: normal affect, normal judgment/insig ht Results Findings/Data: Laboratory Tests 02/24 0740 Chemistry Sodium (134 - 147 mmol/L) 142 Potassium (3.4 - 5.0 mmol/L) 3.8 Chloride (100 - 108 mmol/L) 110 H Carbon Dioxide (21 - 32 mmol/L) 25 Anion Gap (4.0 - 15.0 GAP calc) 7.0 BUN (7 - 18 MG/DL) 11 Creatinine (0.8 - 1.3 MG/DL) 1.0 Glomerular Filtr Rate (>60 estGFR) >=60 max est imate Glucose (70 - 110 MG/DL) 77 Calcium (8.5 - 10.1 MG/DL) 8.1 L Magnesium (1.8 - 2.4 MG/DL) 2.2 Total Bilirubin (0.2 - 1.2 MG/DL) 0.80 AST (15 - 37 Unit/L) 17 ALT (12 - 78 Unit/L) 21 Total Alk Phosphatase (50 - 136 Unit/L) 40 L Total Protein (6.4 - 8.2 G/DL) 5.4 L Albumin (3.4 - 5.0 G/DL) 3.0 L Globulin (GM/dL) 2.4 Albumin/Globulin Ratio (1.2 - 2.2 RATIO) 1.3 TSH (0.340 - 4.820 mcIU/ML) 5.430 H Laboratory Tests 02/24 0740 Hematology WBC (3.5 - 11.0 K/mm3) 3.2 L RBC (4.70 - 6.10 M/mm3) 3.99 L Hgb (12.3 - 15.9 G/DL) 11.5 L Hct (35.8 - 46.7 %) 37.0 MCV (86.3 - 98.9 Fl) 92.7 MCH (28.9 - 34.4 pg) 28.8 L MCHC (32.1 - 34.5 G/DL) 31.1 L RDW (11.5 - 14.5 SD) 13.5 Plt Count (150 - 450 K/mm3) 140 L MPV (7.0 - 9.6 fL) 10.90 H Neut % (Auto) (40 - 76 %) 53.5 Lymph % (Auto) (20.5 - 51.1 %) 34.7 Peach % (Auto) (1.7 - 9.3 %) 8.4 Eos % (Auto) (0.0 - 6.0 %) 2.2 Baso % (Auto) (0.0 - 2.0 %) 0.9 Neut # (Auto) (1.8 - 7.6 K/mm3) 1.7 L Lymph # (Auto) (0.6 - 3.0 K/mm3) 1.1 Peach # (Auto) (0.2 - 1.5 K/mm3) 0.3 Eos # (Auto) (0.0 - 0.4 K/mm3) 0.1 Baso # (Auto) (0.0 - 0.2 K/mm3) 0.0 Abs Immat Gran (auto) (0.00 - 0.03 x10 3/uL) 0 .01 Nucleated RBC % (0.0 - 1.0 /100WBC%) 0.0 Diagnosis, Assessment Plan Free Text DxA P Notes Free text DxA P notes: Assessment Chronic Megacolon/ Colonic dilation Abdominal Distention Diarrhea Nausea/Vomiting Plan ----- -Consulted GI -Keep NPO -IVF for hydration -Place NGT to LIWS -Reglan 5mg IV Q 6hr X 24 hr -SCDs fo DVT prophylaxis Protonix for GI prophylaxis 02/24/2020 chronic intestinal pseudoobstruction Has been on trial for Reglan Monitor closely Appreciate help from GI We will get a colorectal surgery consult For possible ostomy Monitor closely Renal parameters monitored IV hydration 02/25/2020 Patient has bowel movement Abdominal discomfort better Appreciate help from surgery Advised to follow-up with surgery Advised to continue with the liquid diet DC home at 1255 RPT #: [id number] END OF REPORT 2020-02-24 [facility] 12:17:00-00:00 [facility]) Hospitalist Progress Note REPORT#:[id number] REPORT STATUS: Signed DATE:02/24/20 TIME:1217 PATIENT: DORA MCNEILL UNIT #: [id number] ROOM/BED: [place] [id number] : 70 AGE: 50 SEX: M ATTEND: Lucia Perea MD ADM AUTHOR: Mark Perea MD * ALL edits or amendments must be made on the el [employer]/computer document * Subjective Chief Complaint: Abdominal pain better Still distended Review of Systems All systems rev neg: except as marked (See HPI) Objective General VS/I O: Vital Signs: Date Time Temp Pulse Resp B/P B/P Pulse O2 O2 F low FiO2 Mean Ox Delivery Rate 02/23 1100 97.9 61 18 100/65 76.6 99 Room air 02/23 0756 97.9 65 18 96/61 72.4 96 Room air 02/23 0407 36.6 57 18 94/61 72 99 Room air 02/23 0407 97.9 57 18 94/61 71.8 99 Room air 02/23 0219 98.0 60 16 116/59 78 98 Room air 02/22 2212 98.3 69 16 121/82 95 99 Room air 02/22 1935 96 02/22 1915 97.9 60 16 128/78 94 99 Room air 24 hour I O ending at 0700: 02/23 0700 02/22 1900 Intake Total Output Total 500 Balance -500 Output, Urine 500 Patient 150 lb Weight Weight Stated/Reported Measurement Method Patient Weight Weight (lb): Weight (oz): Weight (kg): 68.182 Medications: Active Meds + DC'd Last 24 Hrs Polyethylene Glycol 17 GM BID PO Pantoprazole Sodium 40 MG DAILY IV Metoclopramide HCl 5 MG Q6HR IV (CKD) Acetaminophen 650 MG Q4H PRN PRN PO Morphine Sulfate 2 MG Q3H PRN PRN IV Ondansetron HCl 4 MG Q4H PRN PRN IV Sodium Chloride 1,000 ML .[id number] IV Iopamidol 100 ML .STK-MED ONE IV (DC) Sodium Chloride 50 ML .STK-MED ONE IV (DC) Iopamidol 0 .STK-MED ONE .ROUTE (DC) Sodium Chloride 50 ML .STK-MED ONE IV (DC) Morphine Sulfate 4 MG X1ED STA IV (DC) Ondansetron HCl 4 MG X1ED STA IV (DC) Sodium Chloride 1,000 ML X1ED STA IV (DC) Physical Exam General appearance: alert, awake Head/Eyes: atraumatic, clear cornea ENT: moist mucosal membranes, normal dentition, normal ear left Neck: full range of motion, non-tender Cardiovascular: normal capillary refill, normal heart sounds, regular rate rhythm Respiratory: aerating well, clear to auscultatio n, symmetric expansion, no distress Abdomen: distended, tenderness Extremities: no cyanosis, no edema Musculoskeletal: normal inspection, painless ran ge of motion Skin: Deep abad Psychiatry: normal affect, normal judgment/insig ht Results Findings/Data: Laboratory Tests 02/22 02/22 1933 1933 Chemistry Sodium (134 - 147 mmol/L) 144 Potassium (3.4 - 5.0 mmol/L) 3.6 Chloride (100 - 108 mmol/L) 109 H Carbon Dioxide (21 - 32 mmol/L) 27 Anion Gap (4.0 - 15.0 GAP calc) 8.0 BUN (7 - 18 MG/DL) 22 H Creatinine (0.8 - 1.3 MG/DL) 1.4 H Glomerular Filtr Rate (>60 estGFR) 57 L Glucose (70 - 110 MG/DL) 88 Lactic Acid (0.4 - 2.0 mmol/L) 1.2 Calcium (8.5 - 10.1 MG/DL) 8.5 Total Bilirubin (0.2 - 1.2 MG/DL) 0.40 Direct Bilirubin (0.00 - 0.30 MG/DL) 0.10 Indirect Bilirubin (0.2 - 1.2 MG/DL) 0.30 AST (15 - 37 Unit/L) 20 ALT (12 - 78 Unit/L) 29 Total Alk Phosphatase (50 - 136 Unit/L) 61 Troponin I (0.000 - 0.045 NG/ML) < 0.015 Total Protein (6.4 - 8.2 G/DL) 6.5 Albumin (3.4 - 5.0 G/DL) 3.7 Lipase (114 - 286 Unit/L) 97 L Laboratory Tests 02/22 1933 Hematology WBC (3.5 - 11.0 K/mm3) 4.7 RBC (4.70 - 6.10 M/mm3) 3.90 L Hgb (12.3 - 15.9 G/DL) 11.3 L Hct (35.8 - 46.7 %) 36.4 MCV (86.3 - 98.9 Fl) 93.3 MCH (28.9 - 34.4 pg) 29.0 MCHC (32.1 - 34.5 G/DL) 31.0 L RDW (11.5 - 14.5 SD) 13.8 Plt Count (150 - 450 K/mm3) 172 MPV (7.0 - 9.6 fL) 10.90 H Neut % (Auto) (40 - 76 %) 50.0 Lymph % (Auto) (20.5 - 51.1 %) 36.6 Peach % (Auto) (1.7 - 9.3 %) 10.0 H Eos % (Auto) (0.0 - 6.0 %) 2.6 Baso % (Auto) (0.0 - 2.0 %) 0.6 Neut # (Auto) (1.8 - 7.6 K/mm3) 2.4 Lymph # (Auto) (0.6 - 3.0 K/mm3) 1.7 Peach # (Auto) (0.2 - 1.5 K/mm3) 0.5 Eos # (Auto) (0.0 - 0.4 K/mm3) 0.1 Baso # (Auto) (0.0 - 0.2 K/mm3) 0.0 Abs Immat Gran (auto) (0.00 - 0.03 x10 3/uL) 0. 01 Add Manual Diff (CRITERIA DIFF/SCN) NO Nucleated RBC % (0.0 - 1.0 /100WBC%) 0.0 Laboratory Tests 02/23 2124 Serology SARS-CoV-2 IgG/IgM Ag Rapid (Negative) NEGATIVE Laboratory Tests 02/23 1215 Urines Urine Color (YEL/STRAW discript) YELLOW Urine Appearance (CLEAR discript) CLEAR Urine pH (5.0 - 7.0 pH UNITS) 6.0 Ur Specific [place] (1.005 - 1.030 SG) 1.025 Urine Protein (NEG mg/dL) NEGATIVE Urine Glucose (UA) (NEG mg/dL) NEGATIVE Urine Ketones (NEG mg/dL) NEGATIVE Urine Blood (NEG mg/DL) NEGATIVE Urine Nitrite (NEG SCREEN) NEGATIVE Urine Bilirubin (NEG mg/dL) NEGATIVE Urine Urobilinogen (<2.0 mg/dL) 0.2 Ur Leukocyte Esterase (NEGATIVE Leuk/mcL) NEGAT ECTOR Radiology data: Recent Impressions: CAT SCAN - CT ABD PELVIS W/CONT 02/22 2043 Report Impression - Status: SIGNED Entered: 02/23/20202112 IMPRESSION: 1. Unchanged chronic colonic dilatation when com pared to multiple prior KUBs and CT. No evidence of stricture, mas s or volvulus. No evidence of small bowel obstruction. Impression By: [email or web address] - Marybel José M.D. RADIOLOGY - XR CHEST 1 V 02/22 2054 Report Impression - Status: SIGNED Entered: 02/23/20202106 IMPRESSION: 1. No acute cardiopulmonary disease. 2. Chronic colonic air distention unchanged. Impression By: Alanis - Monica Quijano MD Diagnosis, Assessment Plan Free Text DxA P Notes Free text DxA P notes: Assessment Chronic Megacolon/ Colonic dilation Abdominal Distention Diarrhea Nausea/Vomiting Plan ----- -Consulted GI -Keep NPO -IVF for hydration -Place NGT to LIWS -Reglan 5mg IV Q 6hr X 24 hr -SCDs fo DVT prophylaxis Protonix for GI prophylaxis 02/24/2020 chronic intestinal pseudoobstruction Has been on trial for Reglan Monitor closely Appreciate help from GI We will get a colorectal surgery consult For possible ostomy Monitor closely Renal parameters monitored IV hydration at 1309 RPT #: [id number] END OF REPORT 2020-02-24 [facility] 10:25:00-00:00 [facility] ([facility]) GE Consultation Note REPORT#:[id number] REPORT STATUS: Signed DATE:02/24/20 TIME:1025 PATIENT: DORA MCNEILL UNIT #: [id number] ROOM[facility]BED: [facility] : 70 AGE: 50 SEX: M ATTEND: Jr Perea MD ADM AUTHOR: Andre Solano * ALL edits or amendments must be made on the el [employer]ronic/computer document * History of Present Illness Requesting clinician: Eliazar Reason for consult: abdominal distention Chief complaint: abdominal distention HPI: Patient is a 50 year old mal e with past medical history of colon resection with colostomy s/p reversal who presented [facility] the hosp [facility] with complaints of LLQ. Patient has a history of chronic colonic dilatio n. He has been admitted for such on multiple occasions. General surgery has been consulted. GI was consulted for evaluation. Upon examination today , patient was resting comfortably. He denied abdominal pain at this ti me. Also denied nausea and vomiting. Wants to advance diet. History - Adult longitudinal Additional medical history: bowel obstrution Additional surgical history: bowel resection colsotomy reversal of colostomy Additional family history: noncontributory Alcohol use: Denies EtOH use Drug use: Denies recreational drugs Smoking status for patients 13 years old or olde r: Never Smoker Medications: Home Medications: Medication Dose/Rte/Freq Days Qty Entered Last Max Daily Dose Reviewed [STOOL SOFTNER] 100 MG PO BID 02/17/20 Strength: MG [address] 40 MG PO DAILY 02/17/20 (PROTONIX) 173 Strength: 40 MG TAB. Current Hospital Medications: Central Nervous System Agents Sig/Elena Start time Last Medication Dose Route Stop Time Status Admin Acetaminophen 650 MG Q4H PRN PRN 02/22 2145 AC (TYLENOL) PO 03/24 2144 Morphine Sulfate 2 MG Q3H PRN PRN 02/22 2145 AC (morphine Sulfate) IV 03/04 2144 Morphine Sulfate 4 MG X1ED STA 02/22 1915 DC (morphine SULFATE) IV 02/23 1916 194 Diagnostic Agents Sig/Elena Start time Last Medication Dose Route Stop Time Status Admin Iopamidol 100 ML .STK-MED ONE 02/22 2105 DC (ISOVUE-300) IV 02/22 Iopamidol 0 .STK-MED ONE 02/22 2103 DC (ISOVUE-300) .ROUTE Electrolytic, Caloric, And Yovanny Sig/Elena Start time Last Medication Dose Route Stop Time Status Admin Sodium Chloride 1,000 ML .[id number] 02/22 2145 AC 02/22 (0.9% Sodium IV 02/25 Chloride) Sodium Chloride 50 ML .STK-MED ONE 02/23 2104 D C 02/22 (0.9% Sodium IV 02/22 Chloride) Sodium Chloride 50 ML .STK-MED ONE 02/22 2103 D C (0.9% Sodium IV Chloride) Sodium Chloride 1,000 ML X1ED STA 02/22 1915 DC 02/22 (0.9% Sodium IV 02/22 Chloride) Gastrointestinal Drugs Sig/Elena Start time Last Medication Dose Route Stop Time Status Admin Pantoprazole Sodium 40 MG DAILY 02/23 0900 AC (PROTONIX) IV 03/25 0859 Metoclopramide HCl 5 MG Q6HR 02/23 0030 CKD (REGLAN) IV 03/25 0029 0632 Ondansetron HCl 4 MG Q4H PRN PRN 02/22 2145 AC (ZOFRAN) IV 03/24 2144 Ondansetron HCl 4 MG X1ED STA 02/22 1915 DC (ZOFRAN) IV 02/22 Allergies: Coded Allergies: No Known Allergies (02/24/20) Occupation: none Ambulatory status: Independent Review of Systems Free Text ROS Notes Free Text ROS Notes: Pertinent positives and negatives noted in HPI Objective Physical Exam VS/I O: Last Documented: Result Date Time Pulse Ox 96 02/23 0756 B/P 96/61 02/23 0756 B/P Mean 72.4 02/23 0756 O2 Delivery Room air 02/23 075 Temp 36.6 02/23 075 Pulse 65 02/23 0756 Resp 18 02/23 0756 24 hour I O ending at 0700: 02/23 0700 02/22 1900 Intake Total Output Total 500 Balance -500 Output, Urine 500 Patient 68.182 kg Weight Weight Stated/Reported Measurement Method Patient Weight Weight (lb): Weight (oz): Weight (kg): 68.182 Medications: Active Meds + DC'd Last 24 Hrs Pantoprazole Sodium 40 MG DAILY IV Metoclopramide HCl 5 MG Q6HR IV (CKD) Acetaminophen 650 MG Q4H PRN PRN PO Morphine Sulfate 2 MG Q3H PRN PRN IV Ondansetron HCl 4 MG Q4H PRN PRN IV Sodium Chloride 1,000 ML .[id number] IV Iopamidol 100 ML .STK-MED ONE IV (DC) Sodium Chloride 50 ML .STK-MED ONE IV (DC) Iopamidol 0 .STK-MED ONE .ROUTE (DC) Sodium Chloride 50 ML .STK-MED ONE IV (DC) Morphine Sulfate 4 MG X1ED STA IV (DC) Ondansetron HCl 4 MG X1ED STA IV (DC) Sodium Chloride 1,000 ML X1ED STA IV (DC) General appearance: awake, oriented HEENT: atraumatic, normocephalic Cardiovascular: normal capillary refill, regular rate rhythm Respiratory: aerating well, no distress Abdomen: tenderness, soft, no distention Extremities: moves all, no cyanosis Musculoskeletal: normal inspection Neuro/OCEANOLOGIST: alert, oriented X 3 Results Findings/Data: Laboratory Tests 02/23/201932: [Embedded Image Not Available] Laboratory Tests 02/22 Chemistry Sodium (134 - 147 mmol/L) 144 Potassium (3.4 - 5.0 mmol/L) 3.6 Chloride (100 - 108 mmol/L) 109 H Carbon Dioxide (21 - 32 mmol/L) 27 Anion Gap (4.0 - 15.0 GAP calc) 8.0 BUN (7 - 18 MG/DL) 22 H Creatinine (0.8 - 1.3 MG/DL) 1.4 H Glomerular Filtr Rate (>60 estGFR) 57 L Glucose (70 - 110 MG/DL) 88 Lactic Acid (0.4 - 2.0 mmol/L) 1.2 Calcium (8.5 - 10.1 MG/DL) 8.5 Total Bilirubin (0.2 - 1.2 MG/DL) 0.40 Direct Bilirubin (0.00 - 0.30 MG/DL) 0.10 Indirect Bilirubin (0.2 - 1.2 MG/DL) 0.30 AST (15 - 37 Unit/L) 20 ALT (12 - 78 Unit/L) 29 Total Alk Phosphatase (50 - 136 Unit/L) 61 Troponin I (0.000 - 0.045 NG/ML) < 0.015 Total Protein (6.4 - 8.2 G/DL) 6.5 Albumin (3.4 - 5.0 G/DL) 3.7 Lipase (114 - 286 Unit/L) 97 L Laboratory Tests 02/22 1933 Hematology WBC (3.5 - 11.0 K/mm3) 4.7 RBC (4.70 - 6.10 M/mm3) 3.90 L Hgb (12.3 - 15.9 G/DL) 11.3 L Hct (35.8 - 46.7 %) 36.4 MCV (86.3 - 98.9 Fl) 93.3 MCH (28.9 - 34.4 pg) 29.0 MCHC (32.1 - 34.5 G/DL) 31.0 L RDW (11.5 - 14.5 SD) 13.8 Plt Count (150 - 450 K/mm3) 172 MPV (7.0 - 9.6 fL) 10.90 H Neut % (Auto) (40 - 76 %) 50.0 Lymph % (Auto) (20.5 - 51.1 %) 36.6 Peach % (Auto) (1.7 - 9.3 %) 10.0 H Eos % (Auto) (0.0 - 6.0 %) 2.6 Baso % (Auto) (0.0 - 2.0 %) 0.6 Neut # (Auto) (1.8 - 7.6 K/mm3) 2.4 Lymph # (Auto) (0.6 - 3.0 K/mm3) 1.7 Peach # (Auto) (0.2 - 1.5 K/mm3) 0.5 Eos # (Auto) (0.0 - 0.4 K/mm3) 0.1 Baso # (Auto) (0.0 - 0.2 K/mm3) 0.0 Abs Immat Gran (auto) (0.00 - 0.03 x10 3/uL) 0. 01 Add Manual Diff (CRITERIA DIFF/SCN) NO Nucleated RBC % (0.0 - 1.0 /100WBC%) 0.0 Laboratory Tests 02/23 2124 Serology SARS-CoV-2 IgG/IgM Ag Rapid (Negative) NEGATIVE Radiology data: Recent Impressions: CAT SCAN - CT ABD PELVIS W/CONT 02/22 2043 Report Impression - Status: SIGNED Entered: 02/23/20202112 IMPRESSION: 1. Unchanged chronic colonic dilatation when com pared to multiple prior KUBs and CT. No evidence of stricture, mas s or volvulus. No evidence of small bowel obstruction. Impression By: Bairon José M.D. RADIOLOGY - XR CHEST 1 V 02/22 2054 Report Impression - Status: SIGNED Entered: 02/23/20202106 IMPRESSION: 1. No acute cardiopulmonary disease. 2. Chronic colonic air distention unchanged. Impression By: Alanis Quijano MD Results: labs reviewed, vital signs stable Diagnosis, Assessment Plan Free Text DxA P Notes Free Text DxA P Notes: Impression 1. Small bowel obstruction 2. Abdominal pain - improved 3. History of colon resection with colostomy s/p reversal Plan 1. Liquid diet 2. Serial abdominal exams; KUB in the AM 3. General surgery evaluation pending 4. Monitor BMs 5. No intervention required from GI standpoint. Patient needs to be evaluated for ostomy give chronic large bowel dila tion/[place]. Patient is agreeable to ostomy. 6. Bowel regimen 7. Pain control per primary We will monitor. Electronically Signed by Andre Solano on at 1032 RPT #: [id number] END OF REPORT 2020-02-24 [facility] 10:25:00-00:00 [facility] ([facility]) GE Consultation Note REPORT#:[id number] REPORT STATUS: Signed DATE:02/24/20 TIME:1025 PATIENT: DORA MCNEILL UNIT #: [id number] ROOM/BED: [place] [id number] : 70 AGE: 50 SEX: M ATTEND: Lucia Perea MD ADM AUTHOR: Andre Solano * ALL edits or amendments must be made on the el [employer]/computer document * Andre Solano 02/24/20 1025: History of Present Illness Requesting clinician: Eliazar Reason for consult: abdominal distention Chief complaint: abdominal distention HPI: Patient is a 50 year old mal e with past medical history of colon resection with colostomy s/p reversal who [facility] of [facility]Q. Patient has a history of chronic colonic dilatio n. He has been admitted for such on multiple occasions. General surgery has been consulted. GI was consulted for evaluation. Upon examination today , patient was resting comfortably. He denied abdominal pain at this ti me. Also denied nausea and vomiting. Wants to advance diet. History - Adult longitudinal Additional medical history: bowel obstrution Additional surgical history: bowel resection colsotomy reversal of colostomy Additional family history: noncontributory Alcohol use: Denies EtOH use Drug use: Denies recreational drugs Smoking status for patients 13 years old or olde r: Never Smoker Medications: Home Medications: Medication Dose/Rte/Freq Days Qty Entered Last Max Daily Dose Reviewed [STOOL SOFTNER] 100 MG PO BID 02/17/20 Strength: MG [address] 40 MG PO DAILY 02/17/20 (PROTONIX) 173 Strength: 40 MG TAB. Current Hospital Medications: Central Nervous System Agents Sig/Elena Start time Last Medication Dose Route Stop Time Status Admin Acetaminophen 650 MG Q4H PRN PRN 02/22 2145 AC (TYLENOL) PO 03/24 2144 Morphine Sulfate 2 MG Q3H PRN PRN 02/22 2145 A C (morphine Sulfate) IV 03/04 2144 Morphine Sulfate 4 MG X1ED STA 02/22 1915 DC (morphine SULFATE) IV 02/23 1916 194 Diagnostic Agents Sig/Elena Start time Last Medication Dose Route Stop Time Status Admin Iopamidol 100 ML .STK-MED ONE 02/22 2105 DC (ISOVUE-300) IV 02/22 Iopamidol 0 .STK-MED ONE 02/22 2103 DC (ISOVUE-300) .ROUTE Electrolytic, Caloric, And Yovanny Sig/Elena Start time Last Medication Dose Route Stop Time Status Admin Sodium Chloride 1,000 ML .[id number] 02/22 2145 AC 02/22 (0.9% Sodium IV 02/25 Chloride) Sodium Chloride 50 ML .STK-MED ONE 02/23 2104 D C 02/22 (0.9% Sodium IV 02/22 Chloride) Sodium Chloride 50 ML .STK-MED ONE 02/22 2103 D C (0.9% Sodium IV Chloride) Sodium Chloride 1,000 ML X1ED STA 02/22 1915 D C 02/22 (0.9% Sodium IV 02/22 Chloride) Gastrointestinal Drugs Sig/Elena Start time Last Medication Dose Route Stop Time Status Admin Pantoprazole Sodium 40 MG DAILY 02/23 0900 AC (PROTONIX) IV 03/25 0859 Metoclopramide HCl 5 MG Q6HR 02/23 003 CKD (REGLAN) IV 03/25 0029 0632 Ondansetron HCl 4 MG Q4H PRN PRN 02/22 2145 AC (ZOFRAN) IV 03/24 2144 Ondansetron HCl 4 MG X1ED STA 02/22 1915 DC (ZOFRAN) IV 02/22 Allergies: Coded Allergies: No Known Allergies (02/24/20) Occupation: none Ambulatory status: Independent Review of Systems Free Text ROS Notes Free Text ROS Notes: Pertinent positives and negatives noted in HPI Objective Physical Exam VS/I O: Last Documented: Result Date Time Pulse Ox 96 02/23 0756 B/P 96/61 02/23 0756 B/P Mean 72.4 02/23 0756 O2 Delivery Room air 02/23 0756 Temp 36.6 02/23 0756 Pulse 65 02/23 0756 Resp 18 02/23 0756 24 hour I O ending at 0700: 02/23 0700 02/22 1900 Intake Total Output Total 500 Balance -500 Output, Urine 500 Patient 68.182 kg Weight Weight Stated/Reported Measurement Method Patient Weight Weight (lb): Weight (oz): Weight (kg): 68.182 Medications: Active Meds + DC'd Last 24 Hrs Pantoprazole Sodium 40 MG DAILY IV Metoclopramide HCl 5 MG Q6HR IV (CKD) Acetaminophen 650 MG Q4H PRN PRN PO Morphine Sulfate 2 MG Q3H PRN PRN IV Ondansetron HCl 4 MG Q4H PRN PRN IV Sodium Chloride 1,000 ML .[id number] IV Iopamidol 100 ML .STK-MED ONE IV (DC) Sodium Chloride 50 ML .STK-MED ONE IV (DC) Iopamidol 0 .STK-MED ONE .ROUTE (DC) Sodium Chloride 50 ML .STK-MED ONE IV (DC) Morphine Sulfate 4 MG X1ED STA IV (DC) Ondansetron HCl 4 MG X1ED STA IV (DC) Sodium Chloride 1,000 ML X1ED STA IV (DC) General appearance: awake, oriented HEENT: atraumatic, normocephalic Cardiovascular: normal capillary refill, regular rate rhythm Respiratory: aerating well, no distress Abdomen: tenderness, soft, no distention Extremities: moves all, no cyanosis Musculoskeletal: normal inspection Neuro/OCEANOLOGIST: alert, oriented X 3 Results Findings/Data: Laboratory Tests 02/23/201932: [Embedded Image Not Available] Laboratory Tests 02/22 Chemistry Sodium (134 - 147 mmol/L) 144 Potassium (3.4 - 5.0 mmol/L) 3.6 Chloride (100 - 108 mmol/L) 109 H Carbon Dioxide (21 - 32 mmol/L) 27 Anion Gap (4.0 - 15.0 GAP calc) 8.0 BUN (7 - 18 MG/DL) 22 H Creatinine (0.8 - 1.3 MG/DL) 1.4 H Glomerular Filtr Rate (>60 estGFR) 57 L Glucose (70 - 110 MG/DL) 88 Lactic Acid (0.4 - 2.0 mmol/L) 1.2 Calcium (8.5 - 10.1 MG/DL) 8.5 Total Bilirubin (0.2 - 1.2 MG/DL) 0.40 Direct Bilirubin (0.00 - 0.30 MG/DL) 0.10 Indirect Bilirubin (0.2 - 1.2 MG/DL) 0.30 AST (15 - 37 Unit/L) 20 ALT (12 - 78 Unit/L) 29 Total Alk Phosphatase (50 - 136 Unit/L) 61 Troponin I (0.000 - 0.045 NG/ML) < 0.015 Total Protein (6.4 - 8.2 G/DL) 6.5 Albumin (3.4 - 5.0 G/DL) 3.7 Lipase (114 - 286 Unit/L) 97 L Laboratory Tests 02/22 1933 Hematology WBC (3.5 - 11.0 K/mm3) 4.7 RBC (4.70 - 6.10 M/mm3) 3.90 L Hgb (12.3 - 15.9 G/DL) 11.3 L Hct (35.8 - 46.7 %) 36.4 MCV (86.3 - 98.9 Fl) 93.3 MCH (28.9 - 34.4 pg) 29.0 MCHC (32.1 - 34.5 G/DL) 31.0 L RDW (11.5 - 14.5 SD) 13.8 Plt Count (150 - 450 K/mm3) 172 MPV (7.0 - 9.6 fL) 10.90 H Neut % (Auto) (40 - 76 %) 50.0 Lymph % (Auto) (20.5 - 51.1 %) 36.6 Peach % (Auto) (1.7 - 9.3 %) 10.0 H Eos % (Auto) (0.0 - 6.0 %) 2.6 Baso % (Auto) (0.0 - 2.0 %) 0.6 Neut # (Auto) (1.8 - 7.6 K/mm3) 2.4 Lymph # (Auto) (0.6 - 3.0 K/mm3) 1.7 Peach # (Auto) (0.2 - 1.5 K/mm3) 0.5 Eos # (Auto) (0.0 - 0.4 K/mm3) 0.1 Baso # (Auto) (0.0 - 0.2 K/mm3) 0.0 Abs Immat Gran (auto) (0.00 - 0.03 x10 3/uL) 0 .01 Add Manual Diff (CRITERIA DIFF/SCN) NO Nucleated RBC % (0.0 - 1.0 /100WBC%) 0.0 Laboratory Tests 02/23 2124 Serology SARS-CoV-2 IgG/IgM Ag Rapid (Negative) NEGATIVE Radiology data: Recent Impressions: CAT SCAN - CT ABD PELVIS W/CONT 02/22 2043 Report Impression - Status: SIGNED Entered: 02/23/20202112 IMPRESSION: 1. Unchanged chronic colonic dilatation when com pared to multiple prior KUBs and CT. No evidence of stricture, mas s or volvulus. No evidence of small bowel obstruction. Impression By: [email or web address] - Marybel José M.D. RADIOLOGY - XR CHEST 1 V 02/22 2054 Report Impression - Status: SIGNED Entered: 02/23/20202106 IMPRESSION: 1. No acute cardiopulmonary disease. 2. Chronic colonic air distention unchanged. Impression By: Alanis Quijano MD Results: labs reviewed, vital signs stable Diagnosis, Assessment Plan Free Text DxA P Notes Free Text DxA P Notes: Impression 1. Small bowel obstruction 2. Abdominal pain - improved 3. History of colon resection with colostomy s/p reversal Plan 1. Liquid diet 2. Serial abdominal exams; KUB in the AM 3. General surgery evaluation pending 4. Monitor BMs 5. No intervention required from GI standpoint. Patient needs to be evaluated for ostomy give chronic large bowel dila tion/Ogilvies. Patient is agreeable to ostomy. 6. Bowel regimen 7. Pain control per primary We will monitor. Yas Edwards 02/24/20 1208: Diagnosis, Assessment Plan Additional comments: Surgical colostomy , colon resection , in view o f repeated admissions Electronically Signed by Andre Solano on at 1032 RPT #: [id number] END OF REPORT 2020-02-24 [facility] 10:25:00-00:00 [facility] ([facility]) GE Consultation Note REPORT#:[id number] REPORT STATUS: Signed DATE:02/24/20 TIME:1025 PATIENT: DORA MCNEILL UNIT #: [id number] ROOM/BED: [place] [address] : 70 AGE: 50 SEX: M ATTEND: Lucia Perea MD ADM AUTHOR: Andre Solano * ALL edits or amendments must be made on the [employer]/computer document * Andre Solano 02/24/20 1025: History of Present Illness Requesting clinician: Eliazar Reason for consult: abdominal distention Chief complaint: abdominal distention HPI: Patient is a 50 year old mal e with past medical history of colon resection with colostomy s/p reversal who [facility] with complaints of LLQ. Patient has a history of chronic colonic dilatio n. He has been admitted for such on multiple occasions. General surgery has been consulted. GI was consulted for evaluation. Upon examination today , patient was resting comfortably. He denied abdominal pain at this ti me. Also denied nausea and vomiting. Wants to advance diet. History - Adult longitudinal Additional medical history: bowel obstrution Additional surgical history: bowel resection colsotomy reversal of colostomy Additional family history: noncontributory Alcohol use: Denies EtOH use Drug use: Denies recreational drugs Smoking status for patients 13 years old or olde r: Never Smoker Medications: Home Medications: Medication Dose/Rte/Freq Days Qty Entered Last Max Daily Dose Reviewed [STOOL SOFTNER] 100 MG PO BID 02/17/20 Strength: MG [address] 40 MG PO DAILY 02/17/20 (PROTONIX) 1731 Strength: 40 MG TAB.DR Current Hospital Medications: Central Nervous System Agents Sig/Elena Start time Last Medication Dose Route Stop Time Status Admin Acetaminophen 650 MG Q4H PRN PRN 02/22 2145 AC (TYLENOL) PO 03/24 2144 Morphine Sulfate 2 MG Q3H PRN PRN 02/22 2145 AC (morphine Sulfate) IV 03/04 2144 Morphine Sulfate 4 MG X1ED STA 02/22 1915 DC (morphine SULFATE) IV 02/22 Diagnostic Agents Sig/Elena Start time Last Medication Dose Route Stop Time Status Admin Iopamidol 100 ML .STK-MED ONE 02/22 2105 DC (ISOVUE-300) IV 02/22 Iopamidol 0 .STK-MED ONE 02/22 2103 DC (ISOVUE-300) .ROUTE Electrolytic, Caloric, And Yovanny Sig/Elena Start time Last Medication Dose Route Stop Time Status Admin Sodium Chloride 1,000 ML .[id number] 02/22 2145 AC 02/22 (0.9% Sodium IV 02/25 Chloride) Sodium Chloride 50 ML .STK-MED ONE 02/23 2104 D C 02/22 (0.9% Sodium IV 02/22 Chloride) Sodium Chloride 50 ML .STK-MED ONE 02/22 2103 D C (0.9% Sodium IV Chloride) Sodium Chloride 1,000 ML X1ED STA 02/22 1915 DC 02/22 (0.9% Sodium IV 02/22 Chloride) Gastrointestinal Drugs Sig/Elena Start time Last Medication Dose Route Stop Time Status Admin Pantoprazole Sodium 40 MG DAILY 02/23 0900 AC (PROTONIX) IV 03/25 0859 Metoclopramide HCl 5 MG Q6HR 02/23 0030 CKD (REGLAN) IV 03/25 0029 0632 Ondansetron HCl 4 MG Q4H PRN PRN 02/22 2145 AC (ZOFRAN) IV 03/24 2144 Ondansetron HCl 4 MG X1ED STA 02/22 1915 DC (ZOFRAN) IV 02/22 Allergies: Coded Allergies: No Known Allergies (02/24/20) Occupation: none Ambulatory status: Independent Review of Systems Free Text ROS Notes Free Text ROS Notes: Pertinent positives and negatives noted in HPI Objective Physical Exam VS/I O: Last Documented: Result Date Time Pulse Ox 96 02/23 0756 B/P 96/61 02/23 0756 B/P Mean 72.4 02/23 0756 O2 Delivery Room air 02/23 0756 Temp 36.6 02/23 0756 Pulse 65 02/23 0756 Resp 18 02/23 0756 24 hour I O ending at 0700: 02/23 0700 02/22 1900 Intake Total Output Total 500 Balance -500 Output, Urine 500 Patient 68.182 kg Weight Weight Stated/Reported Measurement Method Patient Weight Weight (lb): Weight (oz): Weight (kg): 68.182 Medications: Active Meds + DC'd Last 24 Hrs Pantoprazole Sodium 40 MG DAILY IV Metoclopramide HCl 5 MG Q6HR IV (CKD) Acetaminophen 650 MG Q4H PRN PRN PO Morphine Sulfate 2 MG Q3H PRN PRN IV Ondansetron HCl 4 MG Q4H PRN PRN IV Sodium Chloride 1,000 ML .[id number] IV Iopamidol 100 ML .STK-MED ONE IV (DC) Sodium Chloride 50 ML .STK-MED ONE IV (DC) Iopamidol 0 .STK-MED ONE .ROUTE (DC) Sodium Chloride 50 ML .STK-MED ONE IV (DC) Morphine Sulfate 4 MG X1ED STA IV (DC) Ondansetron HCl 4 MG X1ED STA IV (DC) Sodium Chloride 1,000 ML X1ED STA IV (DC) General appearance: awake, oriented HEENT: atraumatic, normocephalic Cardiovascular: normal capillary refill, regular rate rhythm Respiratory: aerating well, no distress Abdomen: tenderness, soft, no distention Extremities: moves all, no cyanosis Musculoskeletal: normal inspection Neuro/OCEANOLOGIST: alert, oriented X 3 Results Findings/Data: Laboratory Tests 02/23/201932: [Embedded Image Not Available] Laboratory Tests 02/22 193 Chemistry Sodium (134 - 147 mmol/L) 144 Potassium (3.4 - 5.0 mmol/L) 3.6 Chloride (100 - 108 mmol/L) 109 H Carbon Dioxide (21 - 32 mmol/L) 27 Anion Gap (4.0 - 15.0 GAP calc) 8.0 BUN (7 - 18 MG/DL) 22 H Creatinine (0.8 - 1.3 MG/DL) 1.4 H Glomerular Filtr Rate (>60 estGFR) 57 L Glucose (70 - 110 MG/DL) 88 Lactic Acid (0.4 - 2.0 mmol/L) 1.2 Calcium (8.5 - 10.1 MG/DL) 8.5 Total Bilirubin (0.2 - 1.2 MG/DL) 0.40 Direct Bilirubin (0.00 - 0.30 MG/DL) 0.10 Indirect Bilirubin (0.2 - 1.2 MG/DL) 0.30 AST (15 - 37 Unit/L) 20 ALT (12 - 78 Unit/L) 29 Total Alk Phosphatase (50 - 136 Unit/L) 61 Troponin I (0.000 - 0.045 NG/ML) < 0.015 Total Protein (6.4 - 8.2 G/DL) 6.5 Albumin (3.4 - 5.0 G/DL) 3.7 Lipase (114 - 286 Unit/L) 97 L Laboratory Tests 02/22 1933 Hematology WBC (3.5 - 11.0 K/mm3) 4.7 RBC (4.70 - 6.10 M/mm3) 3.90 L Hgb (12.3 - 15.9 G/DL) 11.3 L Hct (35.8 - 46.7 %) 36.4 MCV (86.3 - 98.9 Fl) 93.3 MCH (28.9 - 34.4 pg) 29.0 MCHC (32.1 - 34.5 G/DL) 31.0 L RDW (11.5 - 14.5 SD) 13.8 Plt Count (150 - 450 K/mm3) 172 MPV (7.0 - 9.6 fL) 10.90 H Neut % (Auto) (40 - 76 %) 50.0 Lymph % (Auto) (20.5 - 51.1 %) 36.6 Peach % (Auto) (1.7 - 9.3 %) 10.0 H Eos % (Auto) (0.0 - 6.0 %) 2.6 Baso % (Auto) (0.0 - 2.0 %) 0.6 Neut # (Auto) (1.8 - 7.6 K/mm3) 2.4 Lymph # (Auto) (0.6 - 3.0 K/mm3) 1.7 Peach # (Auto) (0.2 - 1.5 K/mm3) 0.5 Eos # (Auto) (0.0 - 0.4 K/mm3) 0.1 Baso # (Auto) (0.0 - 0.2 K/mm3) 0.0 Abs Immat Gran (auto) (0.00 - 0.03 x10 3/uL) 0. 01 Add Manual Diff (CRITERIA DIFF/SCN) NO Nucleated RBC % (0.0 - 1.0 /100WBC%) 0.0 Laboratory Tests 02/23 2124 Serology SARS-CoV-2 IgG/IgM Ag Rapid (Negative) NEGATIVE Radiology data: Recent Impressions: CAT SCAN - CT ABD PELVIS W/CONT 02/22 2043 Report Impression - Status: SIGNED Entered: 02/23/20202112 IMPRESSION: 1. Unchanged chronic colonic dilatation when com pared to multiple prior KUBs and CT. No evidence of stricture, mas s or volvulus. No evidence of small bowel obstruction. Impression By: [email or web address] - Marybel José M.D. RADIOLOGY - XR CHEST 1 V 02/22 2054 Report Impression - Status: SIGNED Entered: 02/23/20202106 IMPRESSION: 1. No acute cardiopulmonary disease. 2. Chronic colonic air distention unchanged. Impression By: Alanis - Monica Quijano MD Results: labs reviewed, vital signs stable Diagnosis, Assessment Plan Free Text DxA P Notes Free Text DxA P Notes: Impression 1. Small bowel obstruction 2. Abdominal pain - improved 3. History of colon resection with colostomy s/p reversal Plan 1. Liquid diet 2. Serial abdominal exams; KUB in the AM 3. General surgery evaluation pending 4. Monitor BMs 5. No intervention required from GI standpoint. Patient needs to be evaluated for ostomy give chronic large bowel dila tion/Ogilvies. Patient is agreeable to ostomy. 6. Bowel regimen 7. Pain control per primary We will monitor. [email or web address] 02/24/20 1208: Diagnosis, Assessment Plan Additional comments: Surgical colostomy , colon resection , in view o f repeated admissions Electronically Signed by Andre Solano on at 1032 RPT #: [id number] END OF REPORT 2020-02-24 [facility] 10:25:00-00:00 [facility] ([facility]) GE Consultation Note REPORT#:[id number] REPORT STATUS: Signed DATE:02/24/20 TIME:1025 PATIENT: DORA MCNEILL UNIT #: [id number] ROOM/BED: [place] [address] : 70 AGE: 50 SEX: M ATTEND: Lucia Perea MD ADM AUTHOR: Andre Solano * ALL edits or amendments must be made on the Style [employer]/computer document * Andre Solano 02/24/20 1025: History of Present Illness Requesting clinician: Eliazar Reason for consult: abdominal distention Chief complaint: abdominal distention HPI: Patient is a 50 year old mal e with past medical history of colon resection with colostomy s/p reversal who presented [facility] with complaints of LLQ. Patient has a history of chronic colonic dilatio n. He has been admitted for such on multiple occasions. General surgery has been consulted. GI was consulted for evaluation. Upon examination today , patient was resting comfortably. He denied abdominal pain at this ti me. Also denied nausea and vomiting. Wants to advance diet. History - Adult longitudinal Additional medical history: bowel obstrution Additional surgical history: bowel resection colsotomy reversal of colostomy Additional family history: noncontributory Alcohol use: Denies EtOH use Drug use: Denies recreational drugs Smoking status for patients 13 years old or olde r: Never Smoker Medications: Home Medications: Medication Dose/Rte/Freq Days Qty Entered Last Max Daily Dose Reviewed [STOOL SOFTNER] 100 MG PO BID 02/17/20 Strength: MG [address] 40 MG PO DAILY 02/17/20 (PROTONIX) 173 Strength: 40 MG TAB. Current Hospital Medications: Central Nervous System Agents Sig/Elena Start time Last Medication Dose Route Stop Time Status Admin Acetaminophen 650 MG Q4H PRN PRN 02/22 2145 AC (TYLENOL) PO 03/24 2144 Morphine Sulfate 2 MG Q3H PRN PRN 02/22 2145 A C (morphine Sulfate) IV 03/04 2144 Morphine Sulfate 4 MG X1ED STA 02/22 1915 DC (morphine SULFATE) IV 02/22 Diagnostic Agents Sig/Elena Start time Last Medication Dose Route Stop Time Status Admin Iopamidol 100 ML .STK-MED ONE 02/22 2105 DC (ISOVUE-300) IV 02/22 Iopamidol 0 .STK-MED ONE 02/22 2103 DC (ISOVUE-300) .ROUTE Electrolytic, Caloric, And Yovanny Sig/Elena Start time Last Medication Dose Route Stop Time Status Admin Sodium Chloride 1,000 ML .[id number] 02/22 2145 AC 02/22 (0.9% Sodium IV 02/25 Chloride) Sodium Chloride 50 ML .STK-MED ONE 02/23 2104 D C 02/22 (0.9% Sodium IV 02/22 Chloride) Sodium Chloride 50 ML .STK-MED ONE 02/22 2103 D C (0.9% Sodium IV Chloride) Sodium Chloride 1,000 ML X1ED STA 02/22 1915 DC 02/22 (0.9% Sodium IV 02/22 Chloride) Gastrointestinal Drugs Sig/Elena Start time Last Medication Dose Route Stop Time Status Admin Pantoprazole Sodium 40 MG DAILY 02/23 0900 AC (PROTONIX) IV 03/25 0859 Metoclopramide HCl 5 MG Q6HR 02/23 0030 CKD (REGLAN) IV 03/25 0029 0632 Ondansetron HCl 4 MG Q4H PRN PRN 02/22 2145 AC (ZOFRAN) IV 03/24 2144 Ondansetron HCl 4 MG X1ED STA 02/22 1915 DC (ZOFRAN) IV 02/22 Allergies: Coded Allergies: No Known Allergies (02/24/20) Occupation: none Ambulatory status: Independent Review of Systems Free Text ROS Notes Free Text ROS Notes: Pertinent positives and negatives noted in HPI Objective Physical Exam VS/I O: Last Documented: Result Date Time Pulse Ox 96 02/23 0756 B/P 96/61 02/23 0756 B/P Mean 72.4 02/23 0756 O2 Delivery Room air 02/24 756 Temp 36.6 02/23 075 Pulse 65 02/23 075 Resp 18 02/23 075 24 hour I O ending at 0700: 02/23 0700 02/22 1900 Intake Total Output Total 500 Balance -500 Output, Urine 500 Patient 68.182 kg Weight Weight Stated/Reported Measurement Method Patient Weight Weight (lb): Weight (oz): Weight (kg): 68.182 Medications: Active Meds + DC'd Last 24 Hrs Pantoprazole Sodium 40 MG DAILY IV Metoclopramide HCl 5 MG Q6HR IV (CKD) Acetaminophen 650 MG Q4H PRN PRN PO Morphine Sulfate 2 MG Q3H PRN PRN IV Ondansetron HCl 4 MG Q4H PRN PRN IV Sodium Chloride 1,000 ML .[id number] IV Iopamidol 100 ML .STK-MED ONE IV (DC) Sodium Chloride 50 ML .STK-MED ONE IV (DC) Iopamidol 0 .STK-MED ONE .ROUTE (DC) Sodium Chloride 50 ML .STK-MED ONE IV (DC) Morphine Sulfate 4 MG X1ED STA IV (DC) Ondansetron HCl 4 MG X1ED STA IV (DC) Sodium Chloride 1,000 ML X1ED STA IV (DC) General appearance: awake, oriented HEENT: atraumatic, normocephalic Cardiovascular: normal capillary refill, regular rate rhythm Respiratory: aerating well, no distress Abdomen: tenderness, soft, no distention Extremities: moves all, no cyanosis Musculoskeletal: normal inspection Neuro/OCEANOLOGIST: alert, oriented X 3 Results Findings/Data: Laboratory Tests 02/23/201932: [Embedded Image Not Available] Laboratory Tests 02/22 193 Chemistry Sodium (134 - 147 mmol/L) 144 Potassium (3.4 - 5.0 mmol/L) 3.6 Chloride (100 - 108 mmol/L) 109 H Carbon Dioxide (21 - 32 mmol/L) 27 Anion Gap (4.0 - 15.0 GAP calc) 8.0 BUN (7 - 18 MG/DL) 22 H Creatinine (0.8 - 1.3 MG/DL) 1.4 H Glomerular Filtr Rate (>60 estGFR) 57 L Glucose (70 - 110 MG/DL) 88 Lactic Acid (0.4 - 2.0 mmol/L) 1.2 Calcium (8.5 - 10.1 MG/DL) 8.5 Total Bilirubin (0.2 - 1.2 MG/DL) 0.40 Direct Bilirubin (0.00 - 0.30 MG/DL) 0.10 Indirect Bilirubin (0.2 - 1.2 MG/DL) 0.30 AST (15 - 37 Unit/L) 20 ALT (12 - 78 Unit/L) 29 Total Alk Phosphatase (50 - 136 Unit/L) 61 Troponin I (0.000 - 0.045 NG/ML) < 0.015 Total Protein (6.4 - 8.2 G/DL) 6.5 Albumin (3.4 - 5.0 G/DL) 3.7 Lipase (114 - 286 Unit/L) 97 L Laboratory Tests 02/22 1933 Hematology WBC (3.5 - 11.0 K/mm3) 4.7 RBC (4.70 - 6.10 M/mm3) 3.90 L Hgb (12.3 - 15.9 G/DL) 11.3 L Hct (35.8 - 46.7 %) 36.4 MCV (86.3 - 98.9 Fl) 93.3 MCH (28.9 - 34.4 pg) 29.0 MCHC (32.1 - 34.5 G/DL) 31.0 L RDW (11.5 - 14.5 SD) 13.8 Plt Count (150 - 450 K/mm3) 172 MPV (7.0 - 9.6 fL) 10.90 H Neut % (Auto) (40 - 76 %) 50.0 Lymph % (Auto) (20.5 - 51.1 %) 36.6 Peach % (Auto) (1.7 - 9.3 %) 10.0 H Eos % (Auto) (0.0 - 6.0 %) 2.6 Baso % (Auto) (0.0 - 2.0 %) 0.6 Neut # (Auto) (1.8 - 7.6 K/mm3) 2.4 Lymph # (Auto) (0.6 - 3.0 K/mm3) 1.7 Peach # (Auto) (0.2 - 1.5 K/mm3) 0.5 Eos # (Auto) (0.0 - 0.4 K/mm3) 0.1 Baso # (Auto) (0.0 - 0.2 K/mm3) 0.0 Abs Immat Gran (auto) (0.00 - 0.03 x10 3/uL) 0. 01 Add Manual Diff (CRITERIA DIFF/SCN) NO Nucleated RBC % (0.0 - 1.0 /100WBC%) 0.0 Laboratory Tests 02/23 2124 Serology SARS-CoV-2 IgG/IgM Ag Rapid (Negative) NEGATIVE Radiology data: Recent Impressions: CAT SCAN - CT ABD PELVIS W/CONT 02/22 2043 Report Impression - Status: SIGNED Entered: 02/23/20202112 IMPRESSION: 1. Unchanged chronic colonic dilatation when com pared to multiple prior KUBs and CT. No evidence of stricture, mas s or volvulus. No evidence of small bowel obstruction. Impression By: [email or web address] - Marybel José M.D. RADIOLOGY - XR CHEST 1 V 02/22 2054 Report Impression - Status: SIGNED Entered: 02/23/20202106 IMPRESSION: 1. No acute cardiopulmonary disease. 2. Chronic colonic air distention unchanged. Impression By: Alanis - Monica Quijano MD Results: labs reviewed, vital signs stable Diagnosis, Assessment Plan Free Text DxA P Notes Free Text DxA P Notes: Impression 1. Small bowel obstruction 2. Abdominal pain - improved 3. History of colon resection with colostomy s/p reversal Plan 1. Liquid diet 2. Serial abdominal exams; KUB in the AM 3. General surgery evaluation pending 4. Monitor BMs 5. No intervention required from GI standpoint. Patient needs to be evaluated for ostomy give chronic large bowel dila tion/Ogilvies. Patient is agreeable to ostomy. 6. Bowel regimen 7. Pain control per primary We will monitor. Yas Edwards 02/24/20 1208: Diagnosis, Assessment Plan Additional comments: Surgical colostomy , colon resection , in view o f repeated admissions Electronically Signed by Andre Solano on at 1032 Electronically Signed by Yas Edwards MD on 0 at 1211 RPT #: [id number] END OF REPORT 2020-02-23 [facility] 23:47:00-00:00 [facility] ([facility]) Hospitalist History Physical REPORT#:[id number] REPORT STATUS: Signed DATE:02/23/20 TIME:2346 PATIENT: DORA MCNEILL UNIT #: [id number] ROOM/BED: [place] [address] : 70 AGE: 50 SEX: M ATTEND: Lucia Perea MD ADM AUTHOR: Jossy Das NP * ALL edits or amendments must be made on the Style [employer]/computer document * History of Present Illness Free Text HPI Notes Free Text HPI Notes: Pt is a 50-year-old male with recent pas t medical history of megacolon and SBO who presented to the emergency room with complai nts of worsening abdominal distention abdominal pain since yesterday. Pain is 9 out of 10 . Pt has also been complaining of diarrhea, nausea and vomitin g. Abdominal CT shows chronic colonic dilation. Pt is admitted for further GI workup. . History Additional medical history: bowel obstrution Additional surgical history: bowel resection colsotomy reversal of colostomy Smoking status for patients 13 years old or olde r: Never Smoker Medication/Allergy-Vaccine Hx Home Medications: PANTOPRAZOLE DR (PROTONIX) 40 MG PO DAILY [STOOL SOFTNER] 100 MG PO BID Discontinued Medications POLYETHYLENE GLYCOL 3350 (MIRALAX) 17 GM PO BID Discontinued reason: Patient stopped taking Allergies: Coded Allergies: No Known Allergies (01/05/20) Review of Systems All systems rev neg: except as marked (See HPI) Objective General VS/I O: Vital Signs: Date Time Temp Pulse Resp B/P B/P Pulse O2 O2 F low FiO2 Mean Ox Delivery Rate 02/22 2212 36.8 69 16 121/82 95 99 Room air 02/22 1915 36.6 60 16 128/78 94 99 Room air 24 hour I O ending at 0700: 02/23 0700 02/22 1900 Intake Total Output Total Balance Patient 68.182 kg Weight Weight Stated/Reported Measurement Method Patient Weight Weight (lb): Weight (oz): Weight (kg): 68.182 Medications: Active Meds + DC'd Last 24 Hrs Acetaminophen 650 MG Q4H PRN PRN PO Morphine Sulfate 2 MG Q3H PRN PRN IV Ondansetron HCl 4 MG Q4H PRN PRN IV Sodium Chloride 1,000 ML .[id number] IV Iopamidol 100 ML .STK-MED ONE IV (DC) Sodium Chloride 50 ML .STK-MED ONE IV (DC) Iopamidol 0 .STK-MED ONE .ROUTE (DC) Sodium Chloride 50 ML .STK-MED ONE IV (DC) Morphine Sulfate 4 MG X1ED STA IV (DC) Ondansetron HCl 4 MG X1ED STA IV (DC) Sodium Chloride 1,000 ML X1ED STA IV (DC) Physical Exam General appearance: alert, awake, oriented Head/Eyes: atraumatic, clear cornea ENT: moist mucosal membranes, normal dentition, normal ear left Neck: full range of motion, non-tender Cardiovascular: normal capillary refill, normal heart sounds, regular rate rhythm Respiratory: aerating well, clear to auscultatio n, symmetric expansion, no distress Abdomen: distended, tenderness Extremities: no cyanosis, no edema Musculoskeletal: normal inspection, painless ran ge of motion Skin: Deep abad Psychiatry: normal affect, normal judgment/insig ht Diagnosis, Assessment Plan Free Text DxA P Notes Free text DxA P notes: Assessment Chronic Megacolon/ Colonic dilation Abdominal Distention Diarrhea Nausea/Vomiting Plan ----- -Consulted GI -Keep NPO -IVF for hydration -Place NGT to LIWS -Reglan 5mg IV Q 6hr X 24 hr -SCDs fo DVT prophylaxis Protonix for GI prophylaxis at 0016 RPT #: [id number] END OF REPORT 2020-02-23 [facility] 23:47:00-00:00 [facility] ([facility]) Hospitalist History Physical REPORT#:[id number] REPORT STATUS: Signed DATE:02/23/20 TIME:2346 PATIENT: DORA MCNEILL UNIT #: [id number] ROOM/BED: [place] [id number] : 70 AGE: 50 SEX: M ATTEND: Jr Perea MD ADM AUTHOR: Jossy Das [employer] * ALL edits or amendments must be made on the [employer]/computer document * Jossy Das 02/23/202346: History of Present Illness Free Text HPI Notes Free Text HPI Notes: Pt is a 50-year-old male with recent pas t medical history of megacolon and SBO who presented to the emergency room with complai nts of worsening abdominal distention abdominal pain since yesterday. Pain is 9 out of 10 . Pt has also been complaining of diarrhea, nausea and vomitin g. Abdominal CT shows chronic colonic dilation. Pt is admitted for further GI workup. . History Additional medical history: bowel obstrution Additional surgical history: bowel resection colsotomy reversal of colostomy Smoking status for patients 13 years old or olde r: Never Smoker Medication/Allergy-Vaccine Hx Home Medications: PANTOPRAZOLE DR (PROTONIX) 40 MG PO DAILY [STOOL SOFTNER] 100 MG PO BID Discontinued Medications POLYETHYLENE GLYCOL 3350 (MIRALAX) 17 GM PO BID Discontinued reason: Patient stopped taking Review of Systems All systems rev neg: except as marked (See HPI) Objective General VS/I O: Vital Signs: Date Time Temp Pulse Resp B/P B/P Pulse O2 O2 F low FiO2 Mean Ox Delivery Rate 02/23 2212 36.8 69 16 121/82 95 99 Room air 02/22 1915 36.6 60 16 128/78 94 99 Room air 24 hour I O ending at 0700: 02/23 0700 02/22 1900 Intake Total Output Total Balance Patient 68.182 kg Weight Weight Stated/Reported Measurement Method Patient Weight Weight (lb): Weight (oz): Weight (kg): 68.182 Medications: Active Meds + DC'd Last 24 Hrs Acetaminophen 650 MG Q4H PRN PRN PO Morphine Sulfate 2 MG Q3H PRN PRN IV Ondansetron HCl 4 MG Q4H PRN PRN IV Sodium Chloride 1,000 ML .[id number] IV Iopamidol 100 ML .STK-MED ONE IV (DC) Sodium Chloride 50 ML .STK-MED ONE IV (DC) Iopamidol 0 .STK-MED ONE .ROUTE (DC) Sodium Chloride 50 ML .STK-MED ONE IV (DC) Morphine Sulfate 4 MG X1ED STA IV (DC) Ondansetron HCl 4 MG X1ED STA IV (DC) Sodium Chloride 1,000 ML X1ED STA IV (DC) Physical Exam General appearance: alert, awake, oriented Head/Eyes: atraumatic, clear cornea ENT: moist mucosal membranes, normal dentition, normal ear left Neck: full range of motion, non-tender Cardiovascular: normal capillary refill, normal heart sounds, regular rate rhythm Respiratory: aerating well, clear to auscultatio n, symmetric expansion, no distress Abdomen: distended, tenderness Extremities: no cyanosis, no edema Musculoskeletal: normal inspection, painless ran ge of motion Skin: Deep abad Psychiatry: normal affect, normal judgment/insig ht Diagnosis, Assessment Plan Free Text DxA P Notes Free text DxA P notes: Assessment Chronic Megacolon/ Colonic dilation Abdominal Distention Diarrhea Nausea/Vomiting Plan ----- -Consulted GI -Keep NPO -IVF for hydration -Place NGT to LIWS -Reglan 5mg IV Q 6hr X 24 hr -SCDs fo DVT prophylaxis Protonix for GI prophylaxis Mark Perea 02/24/20 1259: History Medication/Allergy-Vaccine Hx Allergies: Coded Allergies: No Known Allergies (02/24/20) at 0016 at 6057 RPT #: [id number] END OF REPORT 2020-02-23 [facility] 19:23:00-00:00 [facility] ([facility]) EMERGENCY PROVIDER REPORT REPORT#:[id number] REPORT STATUS: Signed DATE:02/23/20 TIME:1922 PATIENT: DORA MCNEILL UNIT #: [id number] ROOM/BED: [facility] : 70 AGE: 50 SEX: M PCP PHYS: No Primar y or Family Physician SERVICE AUTHOR: Susana Meza I [employer] * ALL edits or amendments must be made on the el [employer]/computer document * HPI-Abd Pain M 40 and Over General Confirmed Patient Yes Patient Type New patient Initial Greet Date/Time 02/23/204 Presentation Chief Complaint Abdominal pain, Constipation, ab dominal distention Hx Obtained From Patient Sudden in Onset? No Onset Occurred Yesterday Symptom Duration Since onset, Constant Progression since Onset Unchanged Caused by No trauma by history Location Diffuse Quality Sharp, Tightness Radiation No: Does not radiate. Severity: Current Pain level 9 out of 10 Associated with Reports: Anorexia, Constipat ion, Nausea. Denies: Back pain, Chest pain, Chills, Diarrhea, Dysuria, Fever, Hematemesis, Melena, S hortness of breath, Urinary frequency, Urinary retention, Urinary tract symp toms, Vomiting. Associated Other Pt denies other symptoms Exacerbated by Nothing Relieved by Nothing Free Text HPI Notes Free Text HPI Notes 50-year-old male with past m edical history of megacolon presents emergency room with complaints of worsening abdominal distentio n abdominal pain since yesterday. Patient reports the pain is 9 out of 10 and is not able to keep any food down or liquids. Reports nausea and vomitin g as associated symptoms. Denies any fever, chills, or diarrhea. Risk-Abd Pain M 40 and Over )( Abdominal Aortic Aneurysm Risk factors review ed, No risk factors Coronary Artery Disease Risk factors reviewed Review of Systems ROS Statements All systems rev neg except as marked. Focused Review of Systems Constitutional Denies: Chills, Fever, Lethargy. Respiratory Denies: Cough, non-productive, Cough, productive , Shortness of breath. Cardiovascular Denies: Chest pain, Syncope. GI Reports: Abdominal pain, Nausea, Vomiting. Denie s: Diarrhea. Male Denies: Flank pain, Testicular pain. Musculoskeletal Denies: Back pain, Extremity pain. Past Medical History - Adult Stated Complaint ABDOMEN PAIN Allergies Coded Allergies: No Known Allergies (02/24/20) Home Medications Discontinued Scripts POLYETHYLENE GLYCOL 3350 (MIRALAX) 17 GM PO BID POLYETHYLENE GLYCOL 3350 (MIRALAX) 17 GM PO BID #60 PACKET Prov: 01/11/20 DC: 02/23/202211 Patient stopped taking Reported Medications [STOOL SOFTNER] 100 MG PO BID PANTOPRAZOLE DR (PROTONIX) 40 MG PO DAILY Review of Nursing Notes Rev avail, and agree (tr iage only) Pt reports no significant: Past medical history, Family history Additional Medical History bowel obstrution Additional Surgical History bowel resection colsotomy reversal of colostomy Smoking status for patients 13 years old or olde r: Never Smoker Physical Exam Vital Signs Vital Signs First Documented: Result Date Time Pulse Ox 99 02/22 1915 B/P 128/78 02/22 1915 B/P Mean 94 02/22 1915 O2 Delivery Room air 02/22 1915 Temp 97.9 02/22 1915 Pulse 60 02/22 1915 Resp 16 02/22 1915 Last Documented: Result Date Time Pulse Ox 96 02/22 1935 B/P 128/78 02/22 1915 B/P Mean 94 02/22 1915 O2 Delivery Room air 02/22 1915 Temp 97.9 02/22 1915 Pulse 60 02/22 1915 Resp 16 02/22 1915 Review of Vital Signs Reviewed Focused PE General/Const General/Const Awake, Alert, No acute distress MS Head Head Atraumatic, Normocephalic Eyes Eyes No periorbital redness, No periorbital swe lling, Conjunctiva NL Ears/Nose/Throat Ears/Nose/Throat Atraumatic, Airway patent, Muc ous membranes moist Resp/Chest Respiratory/Chest Atraumatic, Breath sounds NL, Breath sounds = bilat, No respiratory distress Cardiovascular Cardiovascular Heart rate NL, Regular r hythm, Heart sounds NL, Cap refill not delayed, Peripheral circulation NL, Pulses = karly aterally Abdomen/GI Tenderness/Guarding/Rebound Tender diffuse. Bowel Sounds/Distention Distention severe. MS Back Back Atraumatic, No CVA tenderness Skin Skin Atraumatic, Color NL, No rash, Warm, Dry Neurologic Neurologic Oriented X3, Speech NL, No motor def icits, No sensory deficits, Gait NL Additional PE MS Neck Neck Atraumatic, Supple Interpretation Diagnostics Lab Results Interpretation Results Laboratory Tests 02/23/201932: [Embedded Image Not Available] Laboratory Tests: 02/22 Chemistry Sodium (134 - 147 mmol/L) 144 Potassium (3.4 - 5.0 mmol/L) 3.6 Chloride (100 - 108 mmol/L) 109 H Carbon Dioxide (21 - 32 mmol/L) 27 Anion Gap (4.0 - 15.0 GAP calc) 8.0 BUN (7 - 18 MG/DL) 22 H Creatinine (0.8 - 1.3 MG/DL) 1.4 H Glomerular Filtr Rate (>60 estGFR) 57 L Glucose (70 - 110 MG/DL) 88 Lactic Acid (0.4 - 2.0 mmol/L) 1.2 Calcium (8.5 - 10.1 MG/DL) 8.5 Total Bilirubin (0.2 - 1.2 MG/DL) 0.40 Direct Bilirubin (0.00 - 0.30 MG/DL) 0.10 Indirect Bilirubin (0.2 - 1.2 MG/DL) 0.30 AST (15 - 37 Unit/L) 20 ALT (12 - 78 Unit/L) 29 Total Alk Phosphatase (50 - 136 Unit/L) 61 Troponin I (0.000 - 0.045 NG/ML) < 0.015 Total Protein (6.4 - 8.2 G/DL) 6.5 Albumin (3.4 - 5.0 G/DL) 3.7 Lipase (114 - 286 Unit/L) 97 L Hematology WBC (3.5 - 11.0 K/mm3) 4.7 RBC (4.70 - 6.10 M/mm3) 3.90 L Hgb (12.3 - 15.9 G/DL) 11.3 L Hct (35.8 - 46.7 %) 36.4 MCV (86.3 - 98.9 Fl) 93.3 MCH (28.9 - 34.4 pg) 29.0 MCHC (32.1 - 34.5 G/DL) 31.0 L RDW (11.5 - 14.5 SD) 13.8 Plt Count (150 - 450 K/mm3) 172 MPV (7.0 - 9.6 fL) 10.90 H Neut % (Auto) (40 - 76 %) 50.0 Lymph % (Auto) (20.5 - 51.1 %) 36.6 Peach % (Auto) (1.7 - 9.3 %) 10.0 H Eos % (Auto) (0.0 - 6.0 %) 2.6 Baso % (Auto) (0.0 - 2.0 %) 0.6 Neut # (Auto) (1.8 - 7.6 K/mm3) 2.4 Lymph # (Auto) (0.6 - 3.0 K/mm3) 1.7 Peach # (Auto) (0.2 - 1.5 K/mm3) 0.5 Eos # (Auto) (0.0 - 0.4 K/mm3) 0.1 Baso # (Auto) (0.0 - 0.2 K/mm3) 0.0 Abs Immat Gran (auto) (0.00 - 0.03 x10 3/uL) 0. 01 Add Manual Diff (CRITERIA DIFF/SCN) NO Nucleated RBC % (0.0 - 1.0 /100WBC%) 0.0 Serology SARS-CoV-2 IgG/IgM Ag Rapid (Negative) NEGATIVE Microbiology: Date/Time Procedure - Status Source Growth 02/22 1935 Blood Culture - RECD BLOOD 02/22 1925 Blood Culture - RECD BLOOD Recent Impressions: CAT SCAN - CT ABD PELVIS W/CONT 02/22 2043 Report Impression - Status: SIGNED Entered: 02/23/20202112 IMPRESSION: 1. Unchanged chronic colonic dilatation when com pared to multiple prior KUBs and CT. No evidence of stricture, mas s or volvulus. No evidence of small bowel obstruction. Impression By: [email or web address] - Marybel José M.D. RADIOLOGY - XR CHEST 1 V 02/22 2054 Report Impression - Status: SIGNED Entered: 02/23/20202106 IMPRESSION: 1. No acute cardiopulmonary disease. 2. Chronic colonic air distention unchanged. Impression By: Alanis - Monica Quijano MD Lab Imaging Statement Laboratory radiographic studies reviewed and con sidered in the medical decision-making. Point of Care Testing Pulse Oximetry Pulse Ox % 99 On: Room air Interpretation Interpreted by me, Pulse oximetr y normal ECG #1 Interpretation Date 02/23/20 Time 1922 Interpreted by ED physician (Dr. O'Reilly) NL ECG Interpretation Normal rate, No STEMI Rate 72 Re-Evaluation [facility] )( Re-Evaluation/Progress #1 Time of Re-Eval 2121 )( Re-Eval Status Unchanged Re-Eval Abdomen Tenderness, Distention Plan Post Re-Eval Plan admit ED Course Medication(s) Ordered Medication(s) Ordered: Central Nervous System Agents Sig/Elena Start time Last Medication Dose Route Stop Time Status Admin Acetaminophen 650 MG Q4H PRN PRN 02/22 2145 AC PO 03/24 2144 Morphine Sulfate 2 MG Q3H PRN PRN 02/22 2145 AC IV 03/04 2144 Morphine Sulfate 4 MG X1ED STA 02/22 1915 DC IV 02/23 1916 194 Diagnostic Agents Sig/Elena Start time Last Medication Dose Route Stop Time Status Admin Iopamidol 100 ML .STK-MED ONE 02/22 2105 DC IV 02/22 Iopamidol 0 .STK-MED ONE 02/22 2103 DC .ROUTE Electrolytic, Caloric, And Yovanny Sig/Elena Start time Last Medication Dose Route Stop Time Status Admin Sodium Chloride 1,000 ML .[id number] 02/22 2145 AC 02/23 IV 02/25 2031 1039 Sodium Chloride 50 ML .STK-MED ONE 02/23 2104 D C 02/22 IV 02/22 Sodium Chloride 50 ML .STK-MED ONE 02/22 2103 D C IV Sodium Chloride 1,000 ML X1ED STA 02/22 1915 DC 02/22 IV 02/23 1916 194 Gastrointestinal Drugs Sig/Elena Start time Last Medication Dose Route Stop Time Status Admin Ondansetron HCl 4 MG Q4H PRN PRN 02/22 2145 AC IV 03/24 2144 Ondansetron HCl 4 MG X1ED STA 02/22 1915 DC IV 02/22 Consultation Consultation Referral/Consult Name Jay Mayo MD Client Services Associate Called Gastroenterology Requested Call Time 2122 Requested Call Date 02/23/20 Patient Discharge Departure Vital Signs/Condition Vital Signs First Documented: Result Date Time Pulse Ox 99 02/22 1915 B/P 128/78 02/22 1915 B/P Mean 94 02/22 1915 O2 Delivery Room air 02/22 1915 Temp 97.9 02/22 1915 Pulse 60 02/22 1915 Resp 16 02/22 1915 Last Documented: Result Date Time Pulse Ox 96 02/22 1935 B/P 128/78 02/22 1915 B/P Mean 94 02/22 1915 O2 Delivery Room air 02/22 1915 Temp 97.9 02/22 1915 Pulse 60 02/22 1915 Resp 16 02/22 1915 All vital signs available at the time of this en try have been reviewed. Condition Stable Clinical Impression Clinical Impression Primary Impression: Abdominal pain Secondary Impressions: ARF (acute renal failure) , Colon distention, Megacolon Time of Impression 2128 Disposition Decision Admit Admit Physician Name Mark Perea MD Admit Physician Hospitalist Request Time 2129 Request Date 02/23/20 )( Admission Accepts Yes )( Accepted Time 2129 )( Accepted Date 02/23/20 Call Information will see patient, agrees with eval, agrees with plan Discharge/Care Plan Counseled Regarding Diagnosi s, Lab results, Imaging studies, Need for admission Referrals No Primary or Family Physician (PCP/Family) Admit Note I have spoken with the patie nt and/or caregivers. I have explained the patient's condition, diagnoses and phillip atment plan based on the information available to me at this time. I have answered the patient's and/ or caregiver's questions and addressed any concerns. The patient and/or careg piyush have as good an understanding of the patient 's diagnosis, condition and treatment plan as can be expected at this point. The patient has been stabilized within the capability of the emergency department. The patient wi ll be transported for further care and management or will be moved to an observation or inpatient service. I have communicated with the staff or medical p ractitioner taking over this patient's care. Electronically Signed by Susana Meza I [employer] on 0 02/24/20 at 1311 RPT #: [id number] END OF REPORT 2020-02-23 [facility] 19:23:00-00:00 [facility] ([facility]) EMERGENCY PROVIDER REPORT REPORT#:[id number] REPORT STATUS: Signed DATE:02/23/20 TIME:1922 PATIENT: DORA MCNEILL UNIT #: [id number] ROOM/BED: [place] [address] : 70 AGE: 50 SEX: M PCP PHYS: No Primar y or Family Physician SERVICE AUTHOR: Susana Meza I [employer] * ALL edits or amendments must be made on the [employer]/computer document * MezaAryan sebastianina 02/23/20 1923: HPI-Abd Pain M 40 and Over General Confirmed Patient Yes Patient Type New patient Presentation Chief Complaint Abdominal pain, Constipation, ab dominal distention Hx Obtained From Patient Sudden in Onset? No Onset Occurred Yesterday Symptom Duration Since onset, Constant Progression since Onset Unchanged Caused by No trauma by history Location Diffuse Quality Sharp, Tightness Radiation No: Does not radiate. Severity: Current Pain level 9 out of 10 Associated with Reports: Anorexia, Constipat ion, Nausea. Denies: Back pain, Chest pain, Chills, Diarrhea, Dysuria, Fever, Hematemesis, Melena, S hortness of breath, Urinary frequency, Urinary retention, Urinary tract symp toms, Vomiting. Associated Other Pt denies other symptoms Exacerbated by Nothing Relieved by Nothing Free Text HPI Notes Free Text HPI Notes 50-year-old male with past m edical history of megacolon presents emergency room with complaints of worsening abdominal distentio n abdominal pain since yesterday. Patient reports the pain is 9 out of 10 and is not able to keep any food down or liquids. Reports nausea and vomitin g as associated symptoms. Denies any fever, chills, or diarrhea. Risk-Abd Pain M 40 and Over )( Abdominal Aortic Aneurysm Risk factors review ed, No risk factors Coronary Artery Disease Risk factors reviewed Review of Systems ROS Statements All systems rev neg except as marked. Focused Review of Systems Constitutional Denies: Chills, Fever, Lethargy. Respiratory Denies: Cough, non-productive, Cough, productive , Shortness of breath. Cardiovascular Denies: Chest pain, Syncope. GI Reports: Abdominal pain, Nausea, Vomiting. Denie s: Diarrhea. Male Denies: Flank pain, Testicular pain. Musculoskeletal Denies: Back pain, Extremity pain. Past Medical History - Adult Stated Complaint ABDOMEN PAIN Allergies Coded Allergies: No Known Allergies (02/24/20) Home Medications Discontinued Scripts POLYETHYLENE GLYCOL 3350 (MIRALAX) 17 GM PO BID POLYETHYLENE GLYCOL 3350 (MIRALAX) 17 GM PO BID #60 PACKET Prov: 01/11/20 DC: 02/23/202211 Patient stopped taking Reported Medications [STOOL SOFTNER] 100 MG PO BID PANTOPRAZOLE DR (PROTONIX) 40 MG PO DAILY Review of Nursing Notes Rev avail, and agree (tr iage only) Pt reports no significant: Past medical history, Family history Additional Medical History bowel obstrution Additional Surgical History bowel resection colsotomy reversal of colostomy Smoking status for patients 13 years old or olde r: Never Smoker Physical Exam Vital Signs Vital Signs First Documented: Result Date Time Pulse Ox 99 02/22 1915 B/P 128/78 02/22 1915 B/P Mean 94 02/22 1915 O2 Delivery Room air 02/22 1915 Temp 36.6 02/22 1915 Pulse 60 02/22 1915 Resp 16 02/22 1915 Last Documented: Result Date Time Pulse Ox 96 02/22 1935 B/P 128/78 02/22 1915 B/P Mean 94 02/22 1915 O2 Delivery Room air 02/22 1915 Temp 36.6 02/22 1915 Pulse 60 02/22 1915 Resp 16 02/22 1915 Review of Vital Signs Reviewed Focused PE General/Const General/Const Awake, Alert, No acute distress MS Head Head Atraumatic, Normocephalic Eyes Eyes No periorbital redness, No periorbital swe lling, Conjunctiva NL Ears/Nose/Throat Ears/Nose/Throat Atraumatic, Airway patent, Muc ous membranes moist Resp/Chest Respiratory/Chest Atraumatic, Breath sounds NL, Breath sounds = bilat, No respiratory distress Cardiovascular Cardiovascular Heart rate NL, Regular r hythm, Heart sounds NL, Cap refill not delayed, Peripheral circulation NL, Pulses = karly aterally Abdomen/GI Tenderness/Guarding/Rebound Tender diffuse. Bowel Sounds/Distention Distention severe. MS Back Back Atraumatic, No CVA tenderness Skin Skin Atraumatic, Color NL, No rash, Warm, Dry Neurologic Neurologic Oriented X3, Speech NL, No motor def icits, No sensory deficits, Gait NL Additional PE MS Neck Neck Atraumatic, Supple Interpretation Diagnostics Lab Results Interpretation Results Laboratory Tests 02/23/201932: [Embedded Image Not Available] Laboratory Tests: 07/02 07/02 07/02 2124 1933 1933 Chemistry Sodium (134 - 147 mmol/L) 144 Potassium (3.4 - 5.0 mmol/L) 3.6 Chloride (100 - 108 mmol/L) 109 H Carbon Dioxide (21 - 32 mmol/L) 27 Anion Gap (4.0 - 15.0 GAP calc) 8.0 BUN (7 - 18 MG/DL) 22 H Creatinine (0.8 - 1.3 MG/DL) 1.4 H Glomerular Filtr Rate (>60 estGFR) 57 L Glucose (70 - 110 MG/DL) 88 Lactic Acid (0.4 - 2.0 mmol/L) 1.2 Calcium (8.5 - 10.1 MG/DL) 8.5 Total Bilirubin (0.2 - 1.2 MG/DL) 0.40 Direct Bilirubin (0.00 - 0.30 MG/DL) 0.10 Indirect Bilirubin (0.2 - 1.2 MG/DL) 0.30 AST (15 - 37 Unit/L) 20 ALT (12 - 78 Unit/L) 29 Total Alk Phosphatase (50 - 136 Unit/L) 61 Troponin I (0.000 - 0.045 NG/ML) < 0.015 Total Protein (6.4 - 8.2 G/DL) 6.5 Albumin (3.4 - 5.0 G/DL) 3.7 Lipase (114 - 286 Unit/L) 97 L Hematology WBC (3.5 - 11.0 K/mm3) 4.7 RBC (4.70 - 6.10 M/mm3) 3.90 L Hgb (12.3 - 15.9 G/DL) 11.3 L Hct (35.8 - 46.7 %) 36.4 MCV (86.3 - 98.9 Fl) 93.3 MCH (28.9 - 34.4 pg) 29.0 MCHC (32.1 - 34.5 G/DL) 31.0 L RDW (11.5 - 14.5 SD) 13.8 Plt Count (150 - 450 K/mm3) 172 MPV (7.0 - 9.6 fL) 10.90 H Neut % (Auto) (40 - 76 %) 50.0 Lymph % (Auto) (20.5 - 51.1 %) 36.6 Peach % (Auto) (1.7 - 9.3 %) 10.0 H Eos % (Auto) (0.0 - 6.0 %) 2.6 Baso % (Auto) (0.0 - 2.0 %) 0.6 Neut # (Auto) (1.8 - 7.6 K/mm3) 2.4 Lymph # (Auto) (0.6 - 3.0 K/mm3) 1.7 Peach # (Auto) (0.2 - 1.5 K/mm3) 0.5 Eos # (Auto) (0.0 - 0.4 K/mm3) 0.1 Baso # (Auto) (0.0 - 0.2 K/mm3) 0.0 Abs Immat Gran (auto) (0.00 - 0.03 x10 3/uL) 0. 01 Add Manual Diff (CRITERIA DIFF/SCN) NO Nucleated RBC % (0.0 - 1.0 /100WBC%) 0.0 Serology SARS-CoV-2 IgG/IgM Ag Rapid (Negative) NEGATIVE Microbiology: Date/Time Procedure - Status Source Growth 02/22 1935 Blood Culture - RECD BLOOD 02/22 1925 Blood Culture - RECD BLOOD Recent Impressions: CAT SCAN - CT ABD PELVIS W/CONT 02/22 2043 Report Impression - Status: SIGNED Entered: 02/23/20202112 IMPRESSION: 1. Unchanged chronic colonic dilatation when com pared to multiple prior KUBs and CT. No evidence of stricture, mas s or volvulus. No evidence of small bowel obstruction. Impression By: [email or web address] - Marybel José M.D. RADIOLOGY - XR CHEST 1 V 02/22 2054 Report Impression - Status: SIGNED Entered: 02/23/20202106 IMPRESSION: 1. No acute cardiopulmonary disease. 2. Chronic colonic air distention unchanged. Impression By: Alanis - Monica Quijano MD Lab Imaging Statement Laboratory radiographic studies reviewed and con sidered in the medical decision-making. Point of Care Testing Pulse Oximetry Pulse Ox % 99 On: Room air Interpretation Interpreted by me, Pulse oximetr y normal ECG #1 Interpretation Date 02/23/20 Time 1922 Interpreted by ED physician (Dr. Castellanos) NL ECG Interpretation Normal rate, No STEMI Rate 72 Re-Evaluation [facility] )( Re-Evaluation/Progress #1 Time of Re-Eval 2121 )( Re-Eval Status Unchanged Re-Eval Abdomen Tenderness, Distention Plan Post Re-Eval Plan admit ED Course Medication(s) Ordered Medication(s) Ordered: Central Nervous System Agents Sig/Elena Start time Last Medication Dose Route Stop Time Status Admin Acetaminophen 650 MG Q4H PRN PRN 02/22 2145 AC PO 03/24 2144 Morphine Sulfate 2 MG Q3H PRN PRN 02/22 2145 AC IV 03/04 2144 Morphine Sulfate 4 MG X1ED STA 02/22 1915 DC 0 02/22 IV 02/23 1916 194 Diagnostic Agents Sig/Elena Start time Last Medication Dose Route Stop Time Status Admin Iopamidol 100 ML .STK-MED ONE 02/22 2105 DC IV 02/22 Iopamidol 0 .STK-MED ONE 02/22 2103 DC .ROUTE Electrolytic, Caloric, And Yovanny Sig/Elena Start time Last Medication Dose Route Stop Time Status Admin Sodium Chloride 1,000 ML .[id number] 02/22 2145 A C 02/23 IV 02/25 2031 1039 Sodium Chloride 50 ML .STK-MED ONE 02/23 2104 D C 02/22 IV 02/22 Sodium Chloride 50 ML .STK-MED ONE 02/22 2103 D C IV Sodium Chloride 1,000 ML X1ED STA 02/22 1915 D C 02/22 IV 02/22 Gastrointestinal Drugs Sig/Elena Start time Last Medication Dose Route Stop Time Status Admin Ondansetron HCl 4 MG Q4H PRN PRN 02/22 2145 AC IV 03/24 2144 Ondansetron HCl 4 MG X1ED STA 02/22 1915 DC IV 02/22 Consultation Consultation Referral/Consult Name Jay Mayo MD Client Services Associate Called Gastroenterology Requested Call Time 2122 Requested Call Date 02/23/20 Patient Discharge Departure Vital Signs/Condition Vital Signs First Documented: Result Date Time Pulse Ox 99 02/22 1915 B/P 128/78 02/22 1915 B/P Mean 94 02/22 1915 O2 Delivery Room air 02/22 1915 Temp 36.6 02/22 1915 Pulse 60 02/22 1915 Resp 16 02/22 1915 Last Documented: Result Date Time Pulse Ox 96 07/02 1935 B/P 128/78 02/22 1915 B/P Mean 94 02/22 1915 O2 Delivery Room air 02/22 1915 Temp 36.6 02/22 1915 Pulse 60 02/22 1915 Resp 16 02/22 1915 All vital signs available at the time of this en try have been reviewed. Condition Stable Clinical Impression Clinical Impression Primary Impression: Abdominal pain Secondary Impressions: ARF (acute renal failure) , Colon distention, Megacolon Time of Impression 2128 Disposition Decision Admit Admit Physician Name Mark Perea MD Admit Physician Hospitalist Request Time 2129 Request Date 02/23/20 )( Admission Accepts Yes )( Accepted Time 2129 )( Accepted Date 02/23/20 Call Information will see patient, agrees with eval, agrees with plan Discharge/Care Plan Counseled Regarding Diagnosi s, Lab results, Imaging studies, Need for admission Referrals No Primary or Family Physician (PCP/Family) Admit Note I have spoken with the patie nt and/or caregivers. I have explained the patient's condition, diagnoses and phillip atment plan based on the information available to me at this time. I have answered the patient's and/ or caregiver's questions and addressed any concerns. The patient and/or careg piyush have as good an understanding of the patient 's diagnosis, condition and treatment plan as can be expected at this point. The patient has been stabilized within the capability of the emergency department. The patient wi ll be transported for further care and management or will be moved to an observation or inpatient service. I have communicated with the staff or medical p ractitioner taking over this patient's care. 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 I was available for consultation as needed at al l times during the patient's visit in the emergency department. I agree with the clinical impression , plan and disposition. Electronically Signed by Susana Meza NP on 0 02/24/20 at 1311 Electronically Signed by Evin Castellanos MD on at 1620 [facility] #: [id number] END OF REPORT 2020-02-23 [id number] [facility] 19:23:00-00:00 [facility] [address] [place] [address] PATIENT NAME: DORA MCNEILL ADMIT DATE: 10/13 ACCOUNT NO: [id number] ROOM NO: [facility] AGE: 50 REPORT TYPE: eELECTROCARDIOGRAM SEX: M ADMITTING PHYSICIAN: Mark Perea MD ATTENDING PHYSICIAN: Mark Perea MD Order: [id number] Test Reason : ABD PAIN Test Date/Time Stamp: ThuFeb 23 2020 19:23:40 Blood Pressure : / mmHG Vent. Rate : 072 BPM Atrial Rate : 072 BPM P-R Int : 142 ms QRS Dur : 112 ms QT Int : 374 ms P-R-T Axes : 071 -29 -02 degree s QTc Int : 409 ms Normal sinus rhythm Inferior-posterior infarct , age undetermined When compared with ECG of 13-DEC-2019 18:18, (Un confirmed) [place] interval has increased QRS axis shifted left Inferior-posterior infarct is now present Inverted T waves have replac ed nonspecific T wave abnormality in Inferior leads Confirmed by MD Pily, Amir ([id number]) on 10:56:19 AM Referred By: Self Referred Confirmed by:Arielle mullins MD at 1056 PATIENT NAME: DORA MCNEILL ACCOUNT #: [id number] 2020-02-19 [facility] 12:57:00-00:00 [facility] ([facility]) Hospitalist Discharge Summary REPORT#:[id number] REPORT STATUS: Signed DATE:02/19/20 TIME:1257 PATIENT: DORA MCNEILL UNIT #: [id number] ROOM/BED: [facility]-1 : 70 AGE: 50 SEX: M ATTEND: Shreyas Nova MD ADM AUTHOR: Leonidas Robertson MD * ALL edits or amendments must be made on the el ectronic/computer document * PCP PCP Discharge to: home General Information Date of admission: Observation Start Date: Date of admission: 02/17/20 Discharge date: 02/19/20 Admission diagnosis: Admitting diagnosis Small bowel obstruction History of megacolon and ileus History of multiple abdominal surgeries Discharge diagnosis: Discharge diagnoses same as above Hospital course: Hospital course This is 50-year-old Cauc[place] n gentleman who came in with complaints of abdominal distention and constipation. Please refer to admission H P for further details. Patient was initially in the freestanding ER an d was found to have suspected small bowel obstruction so w as transferred here for further management. General surgery was involved and con sidering his complicated surgical history decided to manage conservatively. He was kept n.p.o. And as there was no evidence of mechanical bowel obstruction on the CAT scan so recommended to monitor conservatively with IV fluids and symptomatic ma nagement. Patient gradually improved started passing gas then had ivy wel movements so was gradually started on diet and as he tolerated diet so was cleared by surgery to be discharged home. Patient was stable. Consultants: surgery Pt. condition on discharge: improved Med Rec Med Rec Discharge meds: Continue taking these medications: POLYETHYLENE GLYCOL 3350 (MIRALAX) 17 GM POWDER 17 GRAM ORAL TWICE DAILY. Qty = 60 [STOOL SOFTNER] MG 100 MILLIGRAM ORAL TWICE DAILY. Instructions: TAKE TWICE DAILY PANTOPRAZOLE DR (PROTONIX) 40 MG TAB.DR 40 MILLIGRAM ORAL DAILY. Discharge Instructions Diet: soft Additional instructions: continue current medications avoid constipation f/u with surgery f/u with pcp for routine health care maintainence Discharge management: greater than 30 mins (31) Time spent: >50% spent on counseling/coordination of care: yes Follow-up Appointments PCP: PCP: No Primary or Family Physician Attending Physician: Attending Physician: Coco Nova MD Consulting provider 1: Provider 1: Drea Burch MD Specialty: GENERAL SURGERY Objective General VS/I O: Last Documented: Result Date Time Pulse Ox 99 02/18 1633 B/P 98/69 02/18 1633 B/P Mean 78.5 02/18 1633 Temp 36.8 02/18 1633 Pulse 75 02/18 1633 Resp 20 02/18 1633 O2 Delivery Room air 02/18 0443 Physical Exam General appearance: alert, awake, oriented, plea jr, conversational Head/Eyes: atraumatic, EOMI, normocephalic ENT: dry mucosal membrane Neck: full range of motion, non-tender, supple/n o meningismus Cardiovascular: normal heart sounds, regular rat e rhythm Respiratory: aerating well, clear to auscultatio n, symmetric expansion Abdomen: non-tender, soft, no distention, no gua rding, scar for prior surgery Extremities: moves all, norm al capillary refill, normal range of motion, no calf tenderness, no clubbing Musculoskeletal: normal inspection, straight leg raise neg Neuro/OCEANOLOGIST: alert, oriented X 3, normal speech, n o motor deficits, no sensory deficits Skin: dry Psychiatry: normal affect, normal mood Results Findings/Data: Laboratory Tests Test Result Date Time Chemistry Sodium (134 - 147 mmol/L) 142 02/18 0506 Potassium (3.4 - 5.0 mmol/L) 3.9 02/18 0506 Chloride (100 - 108 mmol/L) 110 H 02/18 0506 Carbon Dioxide (21 - 32 mmol/L) 27 02/18 0506 Anion Gap (4.0 - 15.0 GAP calc) 5.0 02/18 0506 BUN (7 - 18 MG/DL) 9 02/18 0506 Creatinine (0.8 - 1.3 MG/DL) 1.1 02/18 0506 Glomerular Filtr Rate (>60 estGFR) >=60 max est imate 02/18 0506 Glucose (70 - 110 MG/DL) 84 02/18 0506 Calcium (8.5 - 10.1 MG/DL) 8.5 02/18 0506 Hematology WBC (3.5 - 11.0 K/mm3) 3.6 02/18 0506 RBC (4.70 - 6.10 M/mm3) 3.92 L 02/18 0506 Hgb (12.3 - 15.9 G/DL) 11.6 L 02/18 0506 Hct (35.8 - 46.7 %) 36.7 02/186 MCV (86.3 - 98.9 Fl) 93.6 02/186 MCH (28.9 - 34.4 pg) 29.6 02/18 0506 MCHC (32.1 - 34.5 G/DL) 31.6 L 02/18 0506 RDW (11.5 - 14.5 SD) 13.5 02/18 0506 Plt Count (150 - 450 K/mm3) 179 02/18 0506 MPV (7.0 - 9.6 fL) 10.50 H 02/18 0506 Neut % (Auto) (40 - 76 %) 46.9 02/18 0506 Lymph % (Auto) (20.5 - 51.1 %) 39.9 02/18 0506 Peach % (Auto) (1.7 - 9.3 %) 9.6 H 02/18 0506 Eos % (Auto) (0.0 - 6.0 %) 2.5 02/18 0506 Baso % (Auto) (0.0 - 2.0 %) 0.8 02/18 0506 Neut # (Auto) (1.8 - 7.6 K/mm3) 1.7 L 02/18 050 6 Lymph # (Auto) (0.6 - 3.0 K/mm3) 1.4 02/18 0506 Peach # (Auto) (0.2 - 1.5 K/mm3) 0.3 02/18 0506 Eos # (Auto) (0.0 - 0.4 K/mm3) 0.1 02/18 0506 Baso # (Auto) (0.0 - 0.2 K/mm3) 0.0 02/18 0506 Abs Immat Gran (auto) (0.00 - 0.03 x10 3/uL) 0. 01 02/18 0506 Add Manual Diff (CRITERIA DIFF/SCN) NO 02/18 05 06 Nucleated RBC % (0.0 - 1.0 /100WBC%) 0.0 02/18 0506 Serology Nasal/Oral COVID-19 PCR (NEGATIVE) Negative 0513 Radiology data: xray abdomen Electronically Signed by Leonidas Robertson MD on 0 03/13/20 at 1738 RPT #: [id number] END OF REPORT 2020-02-19 [facility] 10:46:00-00:00 [facility] General Surgery Progress Note REPORT#:[id number] REPORT STATUS: Signed DATE:02/19/20 TIME:1046 PATIENT: DORA MCNEILL UNIT #: [id number] ROOM/BED: [facility] : 70 AGE: 50 SEX: M ATTEND: Shreyas Nova MD ADM AUTHOR: Chucky Armstrong MD * ALL edits or amendments must be made on the [employer] Interactive document * Subjective Patient reports: Yes: bowel movement, feeling better, flatus, andreia erating diet. No: complaints, abdominal pain, nausea. Objective Physical Exam General appearance: alert, awake, oriented Respiratory: aerating well Abdomen: distended, non-tender, normal bowel carri nds, soft, no guarding, no hernia Diagnosis, Assessment Plan Free Text A P: Chronic megacolon. Having bowel movements. Advan ce diet as tolerated. Electronically Signed by Chucky Armstrong MD on 01/23 04/12 at 1048 RPT #: [id number] END OF REPORT 2020-02-18 [facility] 13:20:00-00:00 [facility] ([facility] Hospitalist Progress Note REPORT#:[id number] REPORT STATUS: Signed DATE:02/18/20 TIME:1320 PATIENT: DORA MCNEILL UNIT #: [id number] ROOM[address]BED: [address] : 70 AGE: 50 SEX: M ATTEND: Shreyas Nova MD ADM AUTHOR: Leonidas Robertson MD * ALL edits or amendments must be made on the Style [employer] Interactive document * Subjective Chief Complaint: Abdominal distention Comments: Patient lying on the bed feels much better now a bdomen is soft has had 3 or 4 bowel movements. Objective General VS/I O: Vital Signs: Date Time Temp Pulse Resp B/P B/P Pulse O2 O2 F low FiO2 Mean Ox Delivery Rate 02/17 1112 36.8 77 18 119/74 89.0 96 Room air 02/17 0644 36.7 68 16 115/79 91.2 96 02/17 0340 36.7 64 18 123/75 91.1 97 Room air 02/16 2327 36.6 61 18 126/79 94.6 98 Room air 02/16 1909 36.6 61 18 121/78 92.0 99 Room air 02/16 1720 36.7 64 16 118/77 91.0 98 02/16 1600 36.7 60 16 108/69 82 100 Room air 02/16 1400 36.7 60 18 115/76 89 98 Room air 24 hour I O ending at 0700: 02/17 0700 02/16 1900 Intake Total 150.00 Output Total 550 Balance -400.00 Intake, IV 150.00 Number Voids 1 Output, Urine 550 Patient Weight Weight (lb): Weight (oz): Weight (kg): 70.455 Medications: Active Meds + DC'd Last 24 Hrs Enoxaparin Sodium 40 MG DAILY SUBQ Famotidine 20 MG DAILY IV Hydralazine HCl 10 MG Q6H PRN PRN IV Acetaminophen 650 MG Q4H PRN PRN PO (DC) Docusate Sodium 100 MG Q12H PRN PRN PO (DC) Hydrocodone Bitart/Acetaminophen 1 TAB Q4H PRN P RN PO (DC) Hydrocodone Bitart/Acetaminophen 1 TAB Q4H PRN P RN PO (DC) Ondansetron HCl 4 MG Q4H PRN PRN IV (DC) Sodium Chloride 1,000 ML .[id number] IV Physical Exam General appearance: alert, awake, oriented, no a cute distress Head/Eyes: atraumatic, EOMI, normocephalic ENT: dry mucosal membrane Neck: full range of motion, non-tender, supple/n o meningismus Cardiovascular: normal heart sounds, regular rat e rhythm Respiratory: aerating well, clear to auscultatio n, symmetric expansion Abdomen: non-tender, soft, no distention, no gua rding Extremities: moves all, norm al capillary refill, normal range of motion, no calf tenderness, no clubbing Musculoskeletal: normal inspection, straight leg raise neg Neuro/OCEANOLOGIST: alert, oriented X 3, normal speech, n o motor deficits, no sensory deficits Skin: dry Psychiatry: normal affect, normal mood Results Findings/Data: Laboratory Tests 02/17 0545 Chemistry Sodium (134 - 147 mmol/L) 142 Potassium (3.4 - 5.0 mmol/L) 3.8 Chloride (100 - 108 mmol/L) 109 H Carbon Dioxide (21 - 32 mmol/L) 28 Anion Gap (4.0 - 15.0 GAP calc) 5.0 BUN (7 - 18 MG/DL) 14 Creatinine (0.8 - 1.3 MG/DL) 0.9 Glomerular Filtr Rate (>60 estGFR) >=60 max est imate Glucose (70 - 110 MG/DL) 82 Calcium (8.5 - 10.1 MG/DL) 8.3 L Laboratory Tests 02/17 0545 Hematology WBC (3.5 - 11.0 K/mm3) 3.8 RBC (4.70 - 6.10 M/mm3) 3.95 L Hgb (12.3 - 15.9 G/DL) 11.5 L Hct (35.8 - 46.7 %) 36.1 MCV (86.3 - 98.9 Fl) 91.4 MCH (28.9 - 34.4 pg) 29.1 MCHC (32.1 - 34.5 G/DL) 31.9 L RDW (11.5 - 14.5 SD) 13.7 Plt Count (150 - 450 K/mm3) 147 L MPV (7.0 - 9.6 fL) 11.10 H Neut % (Auto) (40 - 76 %) 61.5 Lymph % (Auto) (20.5 - 51.1 %) 27.2 Peach % (Auto) (1.7 - 9.3 %) 8.4 Eos % (Auto) (0.0 - 6.0 %) 1.8 Baso % (Auto) (0.0 - 2.0 %) 0.8 Neut # (Auto) (1.8 - 7.6 K/mm3) 2.4 Lymph # (Auto) (0.6 - 3.0 K/mm3) 1.0 Peach # (Auto) (0.2 - 1.5 K/mm3) 0.3 Eos # (Auto) (0.0 - 0.4 K/mm3) 0.1 Baso # (Auto) (0.0 - 0.2 K/mm3) 0.0 Abs Immat Gran (auto) (0.00 - 0.03 x10 3/uL) 0. 01 Add Manual Diff (CRITERIA DIFF/SCN) NO Nucleated RBC % (0.0 - 1.0 /100WBC%) 0.0 Microbiology Date/Time Procedure - Status Source Growth 02/16 1745 MRSA Screen - COMP NASAL Results: labs reviewed, current med profile rev' d Diagnosis, Assessment Plan Consultants: surgery Free Text DxA P Notes Free text DxA P notes: 1. Ileus with history of megacolon and abdominal surgeries Patient seems to be improvin g so discussed with surgery and started him on clear liquid diet we will keep him on this diet and ge t an x-ray of the abdomen tomorrow based on that x-ray will advance diet. Surgery on board iv pain management AM LABS HTN (hypertension) Hydaralazine IV prn b/p control prophyalxis GI/DVT/lovenox (Pepcid/SCD) Electronically Signed by Leonidas Robertson MD on 0 02/18/20 at 1325 RPT #: [id number] END OF REPORT 2020-02-18 [facility] 12:06:00-00:00 [facility] ([facility]) General Surgery Progress Note REPORT#:[id number] REPORT STATUS: Signed DATE:02/18/20 TIME:1206 PATIENT: DORA MCNEILL UNIT #: [id number] ROOM/BED: [place] [address] : 70 AGE: 50 SEX: M ATTEND: Shreyas Nova MD ADM AUTHOR: Chucky Armstrong MD * ALL edits or amendments must be made on the [employer]/computer document * Subjective Patient reports: Yes: feeling better. No: abdominal pain, bowel m ovement, nausea, vomiting. Objective Physical Exam General appearance: alert, awake, oriented Respiratory: aerating well Abdomen: non-tender, normal bowel sounds , soft, no distention, no guarding, no hernia Diagnosis, Assessment Plan Free Text A P: Chronic megacolon. Having bowel movements. Advan ce diet as tolerated. 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 We will keep t he patient n.p.o. IV fluids symptomatic management. general surgery on board will follow up with the recommendation Electronically Signed by Leonidas Robertson MD on 0 02/17/20 at 1432 RPT #: [id number] END OF REPORT 2020-02-17 [facility] 02:54:00-00:00 [facility] ([facility] Hospitalist History Physical REPORT#:[id number] REPORT STATUS: Signed DATE:02/17/20 TIME:0254 PATIENT: DORA MCNEILL UNIT #: [id number] ROOM/BED: [place] [address] : 70 AGE: 50 SEX: M ATTEND: Shreyas Nova MD ADM AUTHOR: Ted Coleman NP * ALL edits or amendments must be made on the el ectronic/computer document * History of Present Illness HPI Chief complaint: no bm x 2 days PCP: PCP: No Primary or Family Physician HPI: 50 y/o male that comes in wi th PMHx of bowel resection. Patient was transferred from [facility]. Patient has diag nosis of megacolon and ileus. Patient has undergone multip le abdominal surgeries in the past and for the past 2 days has had constipation and abdominal disten tion abdominal discomfort. No fever chills nausea vomiting diarrhea or chest pain. pt reported his last BM was about 2 days. History Additional medical history: bowel obstrution Additional surgical history: bowel resection colsotomy reversal of colostomy Smoking status for patients 13 years old or olde r: Never Smoker Medication/Allergy-Vaccine Hx Home Medications: POLYETHYLENE GLYCOL 3350 (MIRALAX) 17 GM PO BID Allergies: Coded Allergies: No Known Allergies (01/05/20) Review of Systems GI: Reports: abdominal pain, constipation. All systems rev neg: except as marked Objective General VS/I O: Vital Signs: Date Time Temp Pulse Resp B/P B/P Pulse O2 O2 F low FiO2 Mean Ox Delivery Rate 02/16 0243 59 16 140/83 102 98 02/16 0040 63 16 129/88 101 100 02/15 2350 97.7 63 18 144/86 105 100 24 hour I O ending at 0700: 02/16 0700 02/15 1900 Intake Total Output Total Balance Patient 70.455 kg Weight Weight Bed scale Measurement Method Patient Weight Weight (lb): Weight (oz): Weight (kg): 70.455 Medications: Active Meds + DC'd Last 24 Hrs Acetaminophen 650 MG Q4H PRN PRN PO Docusate Sodium 100 MG Q12H PRN PRN PO Hydrocodone Bitart/Acetaminophen 1 TAB Q4H PRN P RN PO Hydrocodone Bitart/Acetaminophen 1 TAB Q4H PRN P RN PO Ondansetron HCl 4 MG Q4H PRN PRN IV Sodium Chloride 1,000 ML .[id number] IV Physical Exam General appearance: alert, a wake, oriented, mental status normal, no respiratory distress Head/Eyes: atraumatic, EOMI, normocephalic ENT: dry mucosal membrane Neck: full range of motion, non-tender, supple/n o meningismus Cardiovascular: normal heart sounds, regular rat e rhythm Respiratory: aerating well, clear to auscultatio n, symmetric expansion Abdomen: distended, tenderness Extremities: moves all, norm al capillary refill, normal range of motion, no calf tenderness, no clubbing Musculoskeletal: normal inspection, straight leg raise neg Neuro/OCEANOLOGIST: alert, oriented X 3, normal speech, n o motor deficits, no sensory deficits Rustam Coma Score: Rustam Coma Score: Response Value Rustam eyes: eyes open spontaneously 4 Rustam speech: oriented 5 Rustam motor: obeys commands 6 Total 15 Skin: dry Psychiatry: normal affect, normal mood Diagnosis, Assessment Plan Problem List/A P: 1. SBO (small bowel obstruction) 2. Abdominal pain 3. Megacolon 4. Ileus 5. HTN (hypertension) Consultants: surgery Code status: full code Free Text DxA P Notes Free text DxA P notes: 1. SBO (small bowel obstruction) 2. Abdominal pain 3. Megacolon 4. Ileus 5. HTN (hypertension) plan consult Surgery iv pain management AM LABS if has vomiting will need NGTube to LWIS Hydaralazine IV prn b/p control prophyalxis GI/DVT (Pepcid/SCD) Quality Current Medications Current medication review: I attest that the foregoing medication list in t he medical record is true, accurate, and complete to the best of my knowled ge. Unable to obtain: Unable to obtain an accurate home medica tion list at this time. The patient is in an urgent or emergent medical situation where time is of the essence. To delay treatment would jeopardize the pat ient's health status on the day of the encounter. VTE Prophylaxis VTE prophylaxis initiated: yes BMI Screening > 25 or < 18.5 Patient's BMI: Current BMI: 20.5 BMI status/follow-up: nml BMI,no family counselor needed HTN Screening/Follow-up Last documented vitals: Last Documented: Result Date Time Pulse Ox 98 02/16 0243 B/P 140/83 02/16 0243 B/P Mean 102 02/16 0243 Pulse 59 02/16 0243 Resp 16 02/16 0243 Temp 97.7 02/15 2350 B/P assess/follow-up: pre-existing hx of HTN at 0305 RPT #: [id number] END OF REPORT 2020-02-17 [facility] 02:54:00-00:00 [facility] ([facility]) Hospitalist History Physical REPORT#:[id number] REPORT STATUS: Signed DATE:02/17/20 TIME:253 PATIENT: DORA MCNEILL UNIT #: [id number] ROOM/BED: [place] [address] : 70 AGE: 50 SEX: M ATTEND: Shreyas Nova MD ADM AUTHOR: Ted Coleman NP * ALL edits or amendments must be made on the el ectronic/computer document * Ted Coleman NP 02/17/20 0254: History of Present Illness HPI Chief complaint: no bm x 2 days PCP: PCP: No Primary or Family Physician HPI: 50 y/o male that comes in wi th PMHx of bowel resection. Patient was transferred from [facility]. Patient has diag nosis of megacolon and ileus. Patient has undergone multip le abdominal surgeries in the past and for the past 2 days has had constipation and abdominal disten tion abdominal discomfort. No fever chills nausea vomiting diarrhea or chest pain. pt reported his last BM was about 2 days. History Additional medical history: bowel obstrution Additional surgical history: bowel resection colsotomy reversal of colostomy Smoking status for patients 13 years old or olde r: Never Smoker Medication/Allergy-Vaccine Hx Home Medications: POLYETHYLENE GLYCOL 3350 (MIRALAX) 17 GM PO BID Allergies: Coded Allergies: No Known Allergies (01/05/20) Review of Systems GI: Reports: abdominal pain, constipation. All systems rev neg: except as marked Objective General VS/I O: Vital Signs: Date Time Temp Pulse Resp B/P B/P Pulse O2 O2 Flow FiO2 Mean Ox Delivery Rate 02/16 0243 59 16 140/83 102 98 02/16 0040 63 16 129/88 101 100 02/15 2350 97.7 63 18 144/86 105 100 24 hour I O ending at 0700: 02/16 0700 02/15 1900 Intake Total Output Total Balance Patient 70.455 kg Weight Weight Bed scale Measurement Method Patient Weight Weight (lb): Weight (oz): Weight (kg): 70.455 Medications: Active Meds + DC'd Last 24 Hrs Acetaminophen 650 MG Q4H PRN PRN PO Docusate Sodium 100 MG Q12H PRN PRN PO Hydrocodone Bitart/Acetaminophen 1 TAB Q4H PRN P RN PO Hydrocodone Bitart/Acetaminophen 1 TAB Q4H PRN P RN PO Ondansetron HCl 4 MG Q4H PRN PRN IV Sodium Chloride 1,000 ML .[id number] IV Physical Exam General appearance: alert, a wake, oriented, mental status normal, no respiratory distress Head/Eyes: atraumatic, EOMI, normocephalic ENT: dry mucosal membrane Neck: full range of motion, non-tender, supple/n o meningismus Cardiovascular: normal heart sounds, regular rat e rhythm Respiratory: aerating well, clear to auscultatio n, symmetric expansion Abdomen: distended, tenderness Extremities: moves all, norm al capillary refill, normal range of motion, no calf tenderness, no clubbing Musculoskeletal: normal inspection, straight leg raise neg Neuro/OCEANOLOGIST: alert, oriented X 3, normal speech, n o motor deficits, no sensory deficits Vanderwagen Coma Score: Rustam Coma Score: Response Value Rustam eyes: eyes open spontaneously 4 Rustam speech: oriented 5 Vanderwagen motor: obeys commands 6 Total 15 Skin: dry Psychiatry: normal affect, normal mood Diagnosis, Assessment Plan Problem List/A P: 1. SBO (small bowel obstruction) 2. Abdominal pain 3. Megacolon 4. Ileus 5. HTN (hypertension) Consultants: surgery Code status: full code Free Text DxA P Notes Free text DxA P notes: 1. SBO (small bowel obstruction) 2. Abdominal pain 3. Megacolon 4. Ileus 5. HTN (hypertension) plan consult Surgery iv pain management AM LABS if has vomiting will need NGTube to LWIS Hydaralazine IV prn b/p control prophyalxis GI/DVT (Pepcid/SCD) Quality Current Medications Current medication review: I attest that the foregoing medication list in t he medical record is true, accurate, and complete to the best of my knowled ge. Unable to obtain: Unable to obtain an accurate home medica tion list at this time. The patient is in an urgent or emergent medical situation where time is of the essence. To delay treatment would jeopardize the pat ient's health status on the day of the encounter. VTE Prophylaxis VTE prophylaxis initiated: yes BMI Screening > 25 or < 18.5 Patient's BMI: Current BMI: 20.5 BMI status/follow-up: nml BMI,no family counselor needed HTN Screening/Follow-up Last documented vitals: Last Documented: Result Date Time Pulse Ox 98 02/16 0243 B/P 140/83 02/16 0243 B/P Mean 102 02/16 0243 Pulse 59 02/16 0243 Resp 16 02/16 0243 Temp 97.7 02/15 2350 B/P assess/follow-up: pre-existing hx of HTN at 0305 Electronically Signed by Coco Nova MD on 01/23 02/10 at 0802 RPT #: [id number] END OF REPORT 2020-02-17 [facility] 02:54:00-00:00 [facility] ([facility]) Hospitalist History Physical REPORT#:[id number] REPORT STATUS: Signed DATE:02/17/20 TIME:253 PATIENT: DORA MCNEILL UNIT #: [id number] ROOM/BED: [place] [address] : 70 AGE: 50 SEX: M ATTEND: Shreyas Nova MD ADM AUTHOR: Ted Coleman NP * ALL edits or amendments must be made on the [employer]/computer document * Ted Coleman NP 02/17/20 0254: History of Present Illness HPI Chief complaint: no bm x 2 days PCP: PCP: No Primary or Family Physician HPI: 50 y/o male that comes in th PMHx of bowel resection. Patient was transferred from [facility]. Patient has diag nosis of megacolon and ileus. Patient has undergone multip le abdominal surgeries in the past and for the past 2 days has had constipation and abdominal disten tion abdominal discomfort. No fever chills nausea vomiting diarrhea or chest pain. pt reported his last BM was about 2 days. History Additional medical history: bowel obstrution Additional surgical history: bowel resection colsotomy reversal of colostomy Smoking status for patients 13 years old or olde r: Never Smoker Medication/Allergy-Vaccine Hx Home Medications: POLYETHYLENE GLYCOL 3350 (MIRALAX) 17 GM PO BID Allergies: Coded Allergies: No Known Allergies (01/05/20) Review of Systems GI: Reports: abdominal pain, constipation. All systems rev neg: except as marked Objective General VS/I O: Vital Signs: Date Time Temp Pulse Resp B/P B/P Pulse O2 O2 F low FiO2 Mean Ox Delivery Rate 02/16 0243 59 16 140/83 102 98 02/16 0040 63 16 129/88 101 100 02/15 2350 97.7 63 18 144/86 105 100 24 hour I O ending at 0700: 02/16 0700 02/15 1900 Intake Total Output Total Balance Patient 70.455 kg Weight Weight Bed scale Measurement Method Patient Weight Weight (lb): Weight (oz): Weight (kg): 70.455 Medications: Active Meds + DC'd Last 24 Hrs Acetaminophen 650 MG Q4H PRN PRN PO Docusate Sodium 100 MG Q12H PRN PRN PO Hydrocodone Bitart/Acetaminophen 1 TAB Q4H PRN P RN PO Hydrocodone Bitart/Acetaminophen 1 TAB Q4H PRN P RN PO Ondansetron HCl 4 MG Q4H PRN PRN IV Sodium Chloride 1,000 ML .[id number] IV Physical Exam General appearance: alert, a wake, oriented, mental status normal, no respiratory distress Head/Eyes: atraumatic, EOMI, normocephalic ENT: dry mucosal membrane Neck: full range of motion, non-tender, supple/n o meningismus Cardiovascular: normal heart sounds, regular rat e rhythm Respiratory: aerating well, clear to auscultatio n, symmetric expansion Abdomen: distended, tenderness Extremities: moves all, norm al capillary refill, normal range of motion, no calf tenderness, no clubbing Musculoskeletal: normal inspection, straight leg raise neg Neuro/OCEANOLOGIST: alert, oriented X 3, normal speech, n o motor deficits, no sensory deficits Vanderwagen Coma Score: Vanderwagen Coma Score: Response Value Rustam eyes: eyes open spontaneously 4 Rustam speech: oriented 5 Rustam motor: obeys commands 6 Total 15 Skin: dry Psychiatry: normal affect, normal mood Diagnosis, Assessment Plan Problem List/A P: 1. SBO (small bowel obstruction) 2. Abdominal pain 3. Megacolon 4. Ileus 5. HTN (hypertension) Consultants: surgery Code status: full code Free Text DxA P Notes Free text DxA P notes: 1. SBO (small bowel obstruction) 2. Abdominal pain 3. Megacolon 4. Ileus 5. HTN (hypertension) plan consult Surgery iv pain management AM LABS if has vomiting will need NGTube to LWIS Hydaralazine IV prn b/p control prophyalxis GI/DVT (Pepcid/SCD) Quality Current Medications Current medication review: I attest that the foregoing medication list in t he medical record is true, accurate, and complete to the best of my knowled ge. Unable to obtain: Unable to obtain an accurate home medica tion list at this time. The patient is in an urgent or emergent medical situation where time is of the essence. To delay treatment would jeopardize the pat ient's health status on the day of the encounter. VTE Prophylaxis VTE prophylaxis initiated: yes BMI Screening > 25 or < 18.5 Patient's BMI: Current BMI: 20.5 BMI status/follow-up: nml BMI,no family counselor needed HTN Screening/Follow-up Last documented vitals: Last Documented: Result Date Time Pulse Ox 98 02/16 243 B/P 140/83 02/16 0243 B/P Mean 102 02/16 0243 Pulse 59 02/16 0243 Resp 16 02/16 024 Temp 97.7 02/15 2350 B/P assess/follow-up: pre-existing hx of HTN at 0305 Electronically Signed by Coco Nova MD on 01/23 02/10 at 0802 at 1106 RPT #: [id number] END OF REPORT 2020-02-17 [facility] 00:07:00-00:00 [facility] ([facility]) EMERGENCY PROVIDER REPORT REPORT#:[id number] REPORT STATUS: Signed DATE:02/17/20 TIME:0007 PATIENT: DORA MCNEILL UNIT #: [id number] ROOM/BED: [place] [id number] : 70 AGE: 50 SEX: M PCP PHYS: No Primar y or Family Physician SERVICE AUTHOR: Sukhwinder Bradshaw MD * ALL edits or amendments must be made on the el [employer]gorith[employer]/computer document * HPI-Abd Pain M 40 and Over General Confirmed Patient Yes Patient Type New patient Initial Greet Date/Time 02/16/20 2352 Presentation Chief Complaint Abdominal pain, Constipation Sudden in Onset? No Free Text HPI Notes Free Text HPI Notes Patient presents emergency department as wiley malik from [facility]. Patient has diagnosis of megacolon and ileus. Patient has undergone multiple abdominal surgeries in the past and for the past 2 days has had constipation and abdominal distention abdominal discomfort. No fever chills nausea vomiting diarrhea or chest pain. Risk-Abd Pain M 40 and Over )( Abdominal Aortic Aneurysm Risk factors review ed Review of Systems ROS Statements All systems rev neg except as marked. Basic Review of Systems Basic ROS EYES: No redness, ENT: No sore throat, HEM: No bleeding/bruising, SKIN : No rash, NEURO: No change MS, NEURO: No focal deficit, PSYCH: NL thought content Focused Review of Systems Constitutional Denies: Chills, Fatigue, Fever. Respiratory Denies: Cough, non-productiv e, Cough, productive, Shortness of breath, Wheezing. Cardiovascular Denies: Chest pain, Dyspnea on exertion, Syncope . GI Reports: Abdominal pain, Constipation. Denies: D iarrhea, Melena, Nausea, Vomiting. Male Denies: Dysuria, Flank pain, Nocturia, Urinary f requency, Urinary urgency, Urination decreased. Past Medical History - Adult Stated Complaint ABDOMINAL PAIN Allergies Coded Allergies: No Known Allergies (01/05/20) Home Medications Active Scripts POLYETHYLENE GLYCOL 3350 (MIRALAX) 17 GM PO BID POLYETHYLENE GLYCOL 3350 (MIRALAX) 17 GM PO BID #[id number] PACKET Prov: 01/11/20 Additional Medical History bowel obstrution Additional Surgical History bowel resection colsotomy reversal of colostomy Smoking status for patients 13 years old or olde r: Never Smoker Physical Exam Vital Signs Vital Signs First Documented: Result Date Time Pulse Ox 100 02/15 2350 B/P 144/86 02/15 2350 B/P Mean 105 02/15 2350 Temp 97.7 02/15 2350 Pulse 63 02/15 2350 Resp 18 02/150 Last Documented: Result Date Time Pulse Ox 100 02/15 2350 B/P 144/86 02/15 2350 B/P Mean 105 02/15 2350 Temp 97.7 02/15 2350 Pulse 63 02/15 2350 Resp 18 02/15 2350 Review of Vital Signs Reviewed Basic Physical Exam Basic PE HEAD: Atraumatic/NC, EYES: PERRL, conj clear, ENT: Membranes moist, NECK: Supple, EXT: No gross abnormality, SKIN: No rashes, warm/dry, NEURO: alert oriented, NEURO: gross movement NL, PSYCH: NL thought content Focused PE General/Const General/Const Awake, Alert, No acute distress Eyes Eyes Atraumatic, EOMI, No nystagmus Resp/Chest Respiratory/Chest Atraumatic, No respiratory di stress, No retractions Cardiovascular Cardiovascular Heart rate NL, Cap refill not de layed, Peripheral circulation NL Abdomen/GI Abdomen/GI Atraumatic, Non-tender Text/Dict Notes Abdomen distended MS Back Back Atraumatic, Inspection NL, Full range of m otion, Painless range of motion Skin Skin Atraumatic, Color NL, No rash, Warm, Dry Neurologic Neurologic Oriented X3, Speech NL, No motor def icits, No sensory deficits Interpretation Diagnostics Lab Results Interpretation Results Microbiology: Date/Time Procedure - Status Source Growth 02/16 0022 MRSA Screen - ORD NASAL Re-Evaluation MDM )( Re-Evaluation/Progress #1 )( Re-Eval Status Improved ED Course Medication(s) Ordered Medication(s) Ordered: Central Nervous System Agents Sig/Elena Start time Last Medication Dose Route Stop Time Status Admin Acetaminophen 650 MG Q4H PRN PRN 02/16 0030 AC PO 02/16 2300 Hydrocodone Bitart/ 1 TAB Q4H PRN PRN 02/16 003 0 AC Acetaminophen PO 02/16 2300 Hydrocodone Bitart/ 1 TAB Q4H PRN PRN 02/16 003 0 AC Acetaminophen PO 02/16 2300 Electrolytic, Caloric, And Yovanny Sig/Elena Start time Last Medication Dose Route Stop Time Status Admin Sodium Chloride 1,000 ML .[id number] 02/16 0030 AC 02/16 IV 02/16 232 0034 Gastrointestinal Drugs Sig/Elena Start time Last Medication Dose Route Stop Time Status Admin Docusate Sodium 100 MG Q12H PRN PRN 02/16 0030 AC PO 02/16 2300 Ondansetron HCl 4 MG Q4H PRN PRN 02/16 0030 AC IV 02/16 2300 Patient Discharge Departure Vital Signs/Condition Vital Signs First Documented: Result Date Time Pulse Ox 100 02/15 2350 B/P 144/86 02/15 2350 B/P Mean 105 02/15 2350 Temp 97.7 02/15 2350 Pulse 63 02/15 2350 Resp 18 02/15 2350 Last Documented: Result Date Time Pulse Ox 100 02/15 2350 B/P 144/86 02/15 2350 B/P Mean 105 02/15 2350 Temp 97.7 02/15 2350 Pulse 63 02/15 2350 Resp 18 02/15 2350 All vital signs available at the time of this en try have been reviewed. Clinical Impression Clinical Impression Primary Impression: Megacolon Secondary Impressions: Ileus Disposition Decision Admit Admit Physician Name Coco Nova MD Admit Physician Hospitalist Request Time 0023 Request Date 02/17/20 )( Admission Accepts Yes )( Accepted Time 22 )( Accepted Date 02/17/20 Call Information will see patient, agrees with eval, agrees with plan Discharge/Care Plan Referrals No Primary or Family Physician (PCP/Family) Electronically Signed by Sukhwinder Bradshaw MD on 0 02/17/20 at 0641 RPT #: [id number] END OF REPORT 2020-01-11 [facility] 14:31:00-00:00 [facility] ([facility] Hospitalist Discharge Summary REPORT#:[id number] REPORT STATUS: Signed DATE:01/11/20 TIME:1431 PATIENT: DORA MCNEILL UNIT #: [id number] ROOM/BED: [place] [address] : 70 AGE: 49 SEX: M ATTEND: Lucia Perea MD ADM AUTHOR: Coco Noav MD * ALL edits or amendments must be made on the Style [employer] Interactive document * PCP PCP PCP: PCP: No Primary or Family Physician Discharge to: home General Information Date of admission: Observation Start Date: Date of admission: 01/05/20 Discharge date: 01/11/20 Discharge diagnosis: SEE HOSP COURSE Hospital course: HOSP COURSE 49 y/o male with PMHx of colon resection, colost om with reversal of colostomy comes in with LLQ pain Free Text DxA P Notes Free text DxA P notes: -pseudoobstruction with megacolon of the transve rse colon: RESOLVED with conservative Rx including n. p.o., gradual dietary restarting and advancement, IV fluids, NG tube to suction, and rectal tube. Als o needed MiraLAX 17 g p.o. twice daily with bowel movements Patient with complicated prior surgical history with colostomy and status post reversal all at different facilities. Appreciate surgery and GI GS signed off- see notes per GI Dr Edwards- plan for colonoscoipy: Colonoscop y done with no concerning findings Patient seen and examined Discharge home stable DC time 33-minute Pt. condition on discharge: improved, stable Med Rec Med Rec Discharge meds: Start taking the following new medications: POLYETHYLENE GLYCOL 3350 (MIRALAX) 17 GM POWDER 17 GRAM ORAL TWICE DAILY. Qty = 60 No Refills Discharge Instructions Activity: as tolerated Additional instructions: fup with PCP 3-5 days fup with GI 1 week Prescriptions: on chart Return to work/school: Yes Date: 01/11/20 Restrictions: No Discharge management: greater than 30 mins Electronically Signed by Coco Nova MD on 12/23 at 1434 RPT #: [id number] END OF REPORT 2020-01-11 [facility] 12:44:00-00:00 [facility] Gastroenterology Progress Note REPORT#:[id number] REPORT STATUS: Signed DATE:01/11/20 TIME:1244 PATIENT: DORA MCNEILL UNIT #: [id number] ROOM/BED: [place] [address] : 70 AGE: 49 SEX: M ATTEND: Lucia Perea MD ADM AUTHOR: Verona Frost PA-C * ALL edits or amendments must be made on the Style [employer] Interactive document * Subjective Chief Complaint: abdominal distention HPI: patient reports feeling overall improved he states he is having BMs denies abdominal pain no nausea and vomiting tolerating diet Review of Systems Free Text ROS Notes Free Text ROS Notes: 14 body systems reviewed and negative otherwise stated in HPI Objective General VS/I O: Last Documented: Result Date Time Pulse Ox 98 01/10 0853 B/P 104/69 01/10 0853 B/P Mean 80 01/10 0853 Temp 98.0 01/10 0853 Pulse 64 01/10 0853 Resp 16 01/10 0853 O2 Delivery Room air 01/10 0342 FiO2 21 01/09 2200 Patient Weight Weight (lb): 150 Weight (oz): 4.98 Weight (kg): 68.180 Physical Exam General appearance: alert, awake, oriented HEENT: atraumatic, normocephalic Cardiovascular: normal capillary refill, regular rate rhythm Respiratory: aerating well, no distress Abdomen: abnormal bowel sounds, non-tender, soft Extremities: moves all, no cyanosis Musculoskeletal: normal inspection Neuro/OCEANOLOGIST: alert, oriented X 3 Skin: dry, intact Diagnosis, Assessment Plan Free Text A P: Impression 1. SBO/Colonic distention s/ p colonoscopy decompression with decompression tube - improved 2. Abdominal pain - improved 3. History of colon resection with colostomy s/p reversal 4. Anemia Plan - Regular diet as tolerated - Serial abdominal exams - Monitor BMs - Continue IV abx - Miralax BID - Follow-up with Dr. Mayo in outpatient GI clin ic in 2 weeks upon discharge Electronically Signed by Verona Frost PA-C on 12/23 at 1247 RPT #: [id number] END OF REPORT 2020-01-11 [facility] 12:44:00-00:00 [facility] ([facility] Gastroenterology Progress Note REPORT#:[id number] REPORT STATUS: Signed DATE:01/11/20 TIME:1244 PATIENT: DORA MCNEILL UNIT #: [id number] ROOM/BED: [place] [address] : 70 AGE: 49 SEX: M ATTEND: Lucia Perea MD ADM AUTHOR: Verona Frost PA-C * ALL edits or amendments must be made on the Style for [employer]/computer document * Verona Frost 01/11/20 1244: Subjective Chief Complaint: abdominal distention HPI: patient reports feeling overall improved he states he is having BMs denies abdominal pain no nausea and vomiting tolerating diet Review of Systems Free Text ROS Notes Free Text ROS Notes: 14 body systems reviewed and negative otherwise stated in HPI Objective General VS/I O: Last Documented: Result Date Time Pulse Ox 98 01/10 0853 B/P 104/69 01/10 0853 B/P Mean 80 01/10 0853 Temp 98.0 01/10 0853 Pulse 64 01/10 0853 Resp 16 01/10 0853 O2 Delivery Room air 01/10 0342 FiO2 21 01/09 2200 Patient Weight Weight (lb): 150 Weight (oz): 4.98 Weight (kg): 68.180 Physical Exam General appearance: alert, awake, oriented HEENT: atraumatic, normocephalic Cardiovascular: normal capillary refill, regular rate rhythm Respiratory: aerating well, no distress Abdomen: abnormal bowel sounds, non-tender, soft Extremities: moves all, no cyanosis Musculoskeletal: normal inspection Neuro/OCEANOLOGIST: alert, oriented X 3 Skin: dry, intact Diagnosis, Assessment Plan Free Text A P: Impression 1. SBO/Colonic distention s/ p colonoscopy decompression with decompression tube - improved 2. Abdominal pain - improved 3. History of colon resection with colostomy s/p reversal 4. Anemia Plan - Regular diet as tolerated - Serial abdominal exams - Monitor BMs - Continue IV abx - Miralax BID - Follow-up with Dr. Mayo in outpatient GI clin ic in 2 weeks upon discharge Jay Mayo 01/11/20 1655: Attestations Physician Attestation Agree w/findings plan: I have personally seen and examined the patient with МАРИНА Lomax. I agree with the HPI, physical examination findi ngs, and assessment/plan as documented by the МАРИНА, and as amended herein by me Electronically Signed by Verona Frost PA-C on 12/23 at 1247 at 1655 RPT #: [id number] END OF REPORT 2020-01-10 [facility] 17:55:00-00:00 [facility] Hospitalist Progress Note REPORT#:[id number] REPORT STATUS: Signed DATE:01/10/20 TIME:175 PATIENT: DORA MCNEILL UNIT #: [id number] ROOM/BED: [place] [address] : 70 AGE: 49 SEX: M ATTEND: Lucia Perea MD ADM AUTHOR: Coco Nova MD * ALL edits or amendments must be made on the Style for [employer]/Shattered Reality Interactive document * Subjective Chief Complaint: Abdominal pain is better Less distention noted No nausea or vomiting had a BM Review of Systems Respiratory: Denies: SOB. Cardiovascular: Denies: chest pain. Neuro: Denies: dizziness. Objective General VS/I O: Vital Signs: Date Time Temp Pulse Resp B/P B/P Pulse O2 O2 F low FiO2 Mean Ox Delivery Rate 01/09 1620 36.6 49 18 125/81 95.3 100 Room air 01/09 1119 36.6 69 18 115/81 92.3 98 Room air 01/09 0714 36.6 56 18 118/84 95.6 100 Room air 01/09 0401 36.7 51 18 110/69 82.8 99 Room air 01/09 0057 36.6 53 18 110/69 82.8 100 Room air 01/08 2150 95 Room air 21 01/08 2044 36.8 54 18 124/80 94.8 99 Room air 24 hour I O ending at 0700: 01/09 0700 01/08 1900 Intake Total 100.00 Output Total 1000 Balance -1000 100.00 Intake, IV 100.00 Output, Urine 1000 Patient Weight Weight (lb): 150 Weight (oz): 4.98 Weight (kg): 68.180 Physical Exam General appearance: alert, awake Neck: full range of motion, non-tender, supple/n o meningismus Cardiovascular: normal capillary refill, normal heart sounds, regular rate rhythm Respiratory: aerating well, clear to auscultatio n, symmetric expansion, no distress Abdomen: non-tender, normal bowel sounds, soft, no distention, no guarding Extremities: moves all, normal range of motion, no edema Musculoskeletal: normal insp ection, painless range of motion, straight leg raise neg Neuro/OCEANOLOGIST: alert, oriented X 3, no motor deficit s, no sensory deficits Skin: dry Diagnosis, Assessment Plan Consultants: gastroenterology, surgery Free Text DxA P Notes Free text DxA P notes: 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 Patient with complicated prior surgical history with colostomy and status post reversal all at different facilities. We are try ing to get the records. Does not appear to be true mechanical obstructio n and just related to the dilation of the transverse colon putting pressur e on gastric outlet. Surgery is on board and have recommended GI to b e involved as well as patient might need decompression of transverse colon or might need neostigmine. NPO IV fliuds NGTube to LWIS IV Pain medication 01/06: GS recommended GI evaluation by discussion with Dr Robertson yesterday as may need colonic decompression vs Neostigmine - G I notes suggeste GS evaluation pending as no notes in from GS yet Pending GS notes, will keep NPO for now Pat reports some improvement 01/07 GS signed off- see notes per GI Dr Edwards- plan for colo noscoipy in am, and also as KUB worse with increased abd distension start IV reglan, connect ng to LI WS and place rectal tube I will start IVF again as now NPO GI Px- PPI IV as NPO dvt Px- Lovenox 01/09/2020 Status post colonoscopy and decompression NG tube removed Continue to monitor closely We will get a KUB in a.m. Continue clear liquids for now Possibly advance diet in a.m. if KUB is normal Advise ambulation 01/09 CLINICALLY better- KUB unchanged rectal tube ell out when he went to use bathroom abd soft, NT/ND at time of my exam Now in full liqui diet Disposition: dc when cleared by GI: per GI lea currie in am Electronically Signed by Coco Nova MD on 12/22 05/13 at 1758 RPT #: [id number] END OF REPORT 2020-01-10 [facility] 12:32:00-00:00 [facility] ([facility]) Gastroenterology Progress Note REPORT#:[id number] REPORT STATUS: Signed DATE:01/10/20 TIME:1232 PATIENT: DORA MCNEILL UNIT #: [id number] ROOM/BED: [place] [address] : 70 AGE: 49 SEX: M ATTEND: Lucia Perea MD ADM AUTHOR: Verona Frost PA-C * ALL edits or amendments must be made on the Style for [employer] Interactive document * Subjective Chief Complaint: abdominal distention HPI: patient feels much better after colonoscopy deco mpression he denies abdominal pain no nausea and vomiting reports he is passing flatus Review of Systems Free Text ROS Notes Free Text ROS Notes: 14 body systems reviewed and negative otherwise stated in HPI Objective General VS/I O: Last Documented: Result Date Time Pulse Ox 98 01/09 1119 B/P 115/81 01/09 1119 B/P Mean 92.3 01/09 1119 O2 Delivery Room air 01/09 1119 Temp 97.9 01/09 1119 Pulse 69 01/09 1119 Resp 18 01/09 1119 FiO2 21 01/08 2150 24 hour I O ending at 0700: 01/09 0700 01/08 1900 Intake Total 100.00 Output Total 1000 Balance -1000 100.00 Intake, IV 100.00 Output, Urine 1000 Patient Weight Weight (lb): 150 Weight (oz): 4.98 Weight (kg): 68.180 Physical Exam General appearance: alert, awake, oriented HEENT: atraumatic, normocephalic Cardiovascular: normal capillary refill, regular rate rhythm Respiratory: aerating well, no distress Abdomen: abnormal bowel sounds, non-tender, soft Extremities: moves all, no cyanosis Musculoskeletal: normal inspection Neuro/OCEANOLOGIST: alert, oriented X 3 Skin: dry, intact Results Findings/Data: Laboratory Tests 01/10/20526: [Embedded Image Not Available] Laboratory Tests 01/09 527 Chemistry Sodium (134 - 147 mmol/L) 140 Potassium (3.4 - 5.0 mmol/L) 4.0 Chloride (100 - 108 mmol/L) 110 H Carbon Dioxide (21 - 32 mmol/L) 25 Anion Gap (4.0 - 15.0 GAP calc) 5.0 BUN (7 - 18 MG/DL) 6 L Creatinine (0.8 - 1.3 MG/DL) 1.2 Glomerular Filtr Rate (>60 estGFR) >=60 max est imate Glucose (70 - 110 MG/DL) 83 Calcium (8.5 - 10.1 MG/DL) 9.0 Total Bilirubin (0.2 - 1.2 MG/DL) 0.60 AST (15 - 37 Unit/L) 17 ALT (12 - 78 Unit/L) 20 Total Alk Phosphatase (50 - 136 Unit/L) 46 L Total Protein (6.4 - 8.2 G/DL) 6.0 L Albumin (3.4 - 5.0 G/DL) 3.5 Globulin (GM/dL) 2.5 Albumin/Globulin Ratio (1.2 - 2.2 RATIO) 1.4 Laboratory Tests 01/09 527 Hematology WBC (3.5 - 11.0 K/mm3) 3.8 RBC (4.70 - 6.10 M/mm3) 4.22 L Hgb (12.3 - 15.9 G/DL) 11.8 L Hct (35.8 - 46.7 %) 38.5 MCV (86.3 - 98.9 Fl) 91.2 MCH (28.9 - 34.4 pg) 28.0 L MCHC (32.1 - 34.5 G/DL) 30.6 L RDW (11.5 - 14.5 SD) 14.8 H Plt Count (150 - 450 K/mm3) 147.0 L MPV (7.0 - 9.6 fL) 10.70 H Neut % (Auto) (40 - 76 %) 46.1 Lymph % (Auto) (20.5 - 51.1 %) 38.3 Peach % (Auto) (1.7 - 9.3 %) 11.5 H Eos % (Auto) (0.0 - 6.0 %) 3.1 Baso % (Auto) (0.0 - 2.0 %) 1.0 Neut # (Auto) (1.8 - 7.6 K/mm3) 1.77 L Lymph # (Auto) (0.6 - 3.0 K/mm3) 1.5 Peach # (Auto) (0.2 - 1.5 K/mm3) 0.4 Eos # (Auto) (0.0 - 0.4 K/mm3) 0.1 Baso # (Auto) (0.0 - 0.2 K/mm3) 0.0 Add Manual Diff (CRITERIA DIFF/SCN) NO Radiology Data: Recent Impressions: RADIOLOGY - XR ABDOMEN 1 V 01/09 0654 Report Impression - Status: SIGNED Entered: 01/10/2020 0736 IMPRESSION: 1. Severe colonic distention is unchanged. Impression By: [email or web address] - Montserrat Santacruz MD Diagnosis, Assessment Plan Free Text A P: Impression 1. SBO/Colonic distention s/ p colonoscopy decompression with decompression tube placed 2. Abdominal pain - improved 3. History of colon resection with colostomy s/p reversal 4. Anemia Plan - Full liquid diet as tolerated; advance to soft tomorrow if tolerating - Serial abdominal exams - Monitor BMs - Continue IV abx - Miralax BID Electronically Signed by Verona Frost PA-C on 12/22 05/13 at 1238 RPT #: [id number] END OF REPORT 2020-01-10 [facility] 12:32:00-00:00 [facility] ([facility]) Gastroenterology Progress Note REPORT#:[id number] REPORT STATUS: Signed DATE:01/10/20 TIME:123 PATIENT: DORA MCNEILL UNIT #: [id number] ROOM/BED: [place] [address] : 70 AGE: 49 SEX: M ATTEND: Lucia Perea MD ADM AUTHOR: Verona Frost PA-C * ALL edits or amendments must be made on the Style for [employer]/computer document * Verona Frost 01/10/20 1232: Subjective Chief Complaint: abdominal distention HPI: patient feels much better after colonoscopy deco mpression he denies abdominal pain no nausea and vomiting reports he is passing flatus Review of Systems Free Text ROS Notes Free Text ROS Notes: 14 body systems reviewed and negative otherwise stated in HPI Objective General VS/I O: Last Documented: Result Date Time Pulse Ox 98 01/09 1119 B/P 115/81 01/09 1119 B/P Mean 92.3 01/09 1119 O2 Delivery Room air 01/09 111 Temp 97.9 01/09 1119 Pulse 69 01/09 1119 Resp 18 01/09 1119 FiO2 21 01/08 2150 24 hour I O ending at 0700: 01/09 0700 01/08 1900 Intake Total 100.00 Output Total 1000 Balance -1000 100.00 Intake, IV 100.00 Output, Urine 1000 Patient Weight Weight (lb): 150 Weight (oz): 4.98 Weight (kg): 68.180 Physical Exam General appearance: alert, awake, oriented HEENT: atraumatic, normocephalic Cardiovascular: normal capillary refill, regular rate rhythm Respiratory: aerating well, no distress Abdomen: abnormal bowel sounds, non-tender, soft Extremities: moves all, no cyanosis Musculoskeletal: normal inspection Neuro/OCEANOLOGIST: alert, oriented X 3 Skin: dry, intact Results Findings/Data: Laboratory Tests 01/10/20526: [Embedded Image Not Available] Laboratory Tests 01/09 527 Chemistry Sodium (134 - 147 mmol/L) 140 Potassium (3.4 - 5.0 mmol/L) 4.0 Chloride (100 - 108 mmol/L) 110 H Carbon Dioxide (21 - 32 mmol/L) 25 Anion Gap (4.0 - 15.0 GAP calc) 5.0 BUN (7 - 18 MG/DL) 6 L Creatinine (0.8 - 1.3 MG/DL) 1.2 Glomerular Filtr Rate (>60 estGFR) >=60 max est imate Glucose (70 - 110 MG/DL) 83 Calcium (8.5 - 10.1 MG/DL) 9.0 Total Bilirubin (0.2 - 1.2 MG/DL) 0.60 AST (15 - 37 Unit/L) 17 ALT (12 - 78 Unit/L) 20 Total Alk Phosphatase (50 - 136 Unit/L) 46 L Total Protein (6.4 - 8.2 G/DL) 6.0 L Albumin (3.4 - 5.0 G/DL) 3.5 Globulin (GM/dL) 2.5 Albumin/Globulin Ratio (1.2 - 2.2 RATIO) 1.4 Laboratory Tests 01/09 0527 Hematology WBC (3.5 - 11.0 K/mm3) 3.8 RBC (4.70 - 6.10 M/mm3) 4.22 L Hgb (12.3 - 15.9 G/DL) 11.8 L Hct (35.8 - 46.7 %) 38.5 MCV (86.3 - 98.9 Fl) 91.2 MCH (28.9 - 34.4 pg) 28.0 L MCHC (32.1 - 34.5 G/DL) 30.6 L RDW (11.5 - 14.5 SD) 14.8 H Plt Count (150 - 450 K/mm3) 147.0 L MPV (7.0 - 9.6 fL) 10.70 H Neut % (Auto) (40 - 76 %) 46.1 Lymph % (Auto) (20.5 - 51.1 %) 38.3 Peach % (Auto) (1.7 - 9.3 %) 11.5 H Eos % (Auto) (0.0 - 6.0 %) 3.1 Baso % (Auto) (0.0 - 2.0 %) 1.0 Neut # (Auto) (1.8 - 7.6 K/mm3) 1.77 L Lymph # (Auto) (0.6 - 3.0 K/mm3) 1.5 Peach # (Auto) (0.2 - 1.5 K/mm3) 0.4 Eos # (Auto) (0.0 - 0.4 K/mm3) 0.1 Baso # (Auto) (0.0 - 0.2 K/mm3) 0.0 Add Manual Diff (CRITERIA DIFF/SCN) NO Radiology Data: Recent Impressions: RADIOLOGY - XR ABDOMEN 1 V 01/09 0654 Report Impression - Status: SIGNED Entered: 01/10/2020 0736 IMPRESSION: 1. Severe colonic distention is unchanged. Impression By: [email or web address] - Montserrat Santacruz MD Diagnosis, Assessment Plan Free Text A P: Impression 1. SBO/Colonic distention s/ p colonoscopy decompression with decompression tube placed 2. Abdominal pain - improved 3. History of colon resection with colostomy s/p reversal 4. Anemia Plan - Full liquid diet as tolerated; advance to soft tomorrow if tolerating - Serial abdominal exams - Monitor BMs - Continue IV abx - Miralax BID Jay Mayo 01/10/20 1300: Attestations Physician Attestation Agree w/findings plan: I have personally seen and examined the patient with МАРИНА Lomax. I agree with the HPI, physical examination findi ngs, and assessment/plan as documented by the МАРИНА, and as amended herein by me Acute on chronic colonic dilation Clinically much improved Advance diet KUB in AM Bowel regimen-Miralax BID Anticipate discharge in AM Electronically Signed by Verona Frost PA-C on 12/22 05/13 at 1238 at 1301 RPT #: [id number] END OF REPORT 2020-01-09 [facility] 13:39:00-00:00 [facility] ([facility]) Post Anesthesia Evaluation REPORT#:[id number] REPORT STATUS: Signed DATE:01/09/20 TIME:1339 PATIENT: DORA MCNEILL UNIT #: [id number] ROOM/BED: [place] [id number] : 70 AGE: 49 SEX: M ATTEND: Lucia Perea MD ADM AUTHOR: Simi Albert MD * ALL edits or amendments must be made on the [employer] Interactive document * General Post-op: post surgery rounds Post Anesthesia Evaluation Anes. changes from pre-op eval ORM Surgeries: Surgery Date and Time: 01/09/2020 1000 Proposed Primary Procedure: COLONOSCOPY Anesthetic: TIVA Date: 01/09/20 Level of consciousness: paty ent awake, able to answer questions, participate in this eval. Vital signs: Last Documented: Result Date Time Pulse Ox 93 01/08 1129 B/P 118/77 01/08 112 B/P Mean 90.9 01/08 1129 O2 Delivery Room air 01/08 1129 Temp 36.5 01/08 112 Pulse 50 01/08 1129 Resp 18 01/08 112 FiO2 21 01/08 0808 Cardiovascular: CV system stable, vital signs st able Respiratory/Airway: respiratory system stable, m aintains without support Pain: adequately controlled Hydration: adequate Temp status: greater than 96.8F, normothermic Presence of N/V: no Anesthesia complications: no Other changes requiring f/u: none Conclusions: no apparent anes. issues Electronically Signed by Simi Albert MD on 12/22 04/12 at 1340 RPT #: [id number] END OF REPORT 2020-01-09 [facility] 10:13:00-00:00 [facility] Hospitalist Progress Note REPORT#:[id number] REPORT STATUS: Signed DATE:01/09/20 TIME:1013 PATIENT: DORA MCNEILL UNIT #: [id number] ROOM/BED: [place] [id number] : 70 AGE: 49 SEX: M ATTEND: Jr Perea MD ADM AUTHOR: Mark Perea MD * ALL edits or amendments must be made on the [employer] Interactive document * Subjective Chief Complaint: Abdominal pain is better Less distention noted No nausea or vomiting Objective General VS/I O: Vital Signs: Date Time Temp Pulse Resp B/P B/P Pulse O2 O2 F low FiO2 Mean Ox Delivery Rate 01/08 0852 98.0 57 19 111/70 98 Room air 01/08 0808 98 Room air 01/08 0715 97.5 57 18 111/70 83.6 93 Room air 01/08 0531 97.5 55 14 100/66 77.7 97 Room air 01/07 2356 97.9 60 14 109/68 81.4 94 01/07 2000 96 Room air 01/07 1947 98.1 51 16 98/64 75.8 96 Room air 01/07 1619 97.5 53 16 120/81 94.3 99 Room air 01/07 1219 96 Room air 01/07 1126 97.7 73 16 120/80 93.7 99 Room air 24 hour I O ending at 0700: 01/08 0700 01/07 1900 Intake Total 480 Output Total 350 800 Balance -350 -320 Intake, Oral 480 Output, Urine 350 800 Patient Weight Weight (lb): 150 Weight (oz): 4.98 Weight (kg): 68.180 Medications: Active Meds + DC'd Last 24 Hrs Lidocaine HCl 0 .STK-MED ONE .ROUTE (DC) Midazolam HCl 0 .STK-MED ONE .ROUTE (DC) Propofol 20 ML .STK-MED ONE IV (DC) Polyethylene Glycol/Electrolytes 4,000 ML ONCE O NE PO (DC) Bisacodyl 10 MG ONCE ONE RECTAL (DC) Dextrose/Sodium Chloride 1,000 ML .Q20H IV Metoclopramide HCl 10 MG Q6HR IV (CKD) Potassium Chloride 40 MEQ ONCE ONE PO (DC) Potassium Chloride 40 MEQ .Q10H IV (DC) Dextrose/Water 1,000 ML Pantoprazole Sodium 40 MG DAILY IV Polyethylene Glycol 17 GM Q12HR FEED-TUBE Potassium Chloride 16 MEQ DAILY PO Metronidazole/Sodium Chloride 100 ML Q8HR IV (CK D) Ceftriaxone Sodium 1,000 MG Q24H IM Sterile Water 10 ML Enoxaparin Sodium 40 MG Q24H SUBQ Morphine Sulfate 2 MG Q4H PRN PRN IV Morphine Sulfate 3 MG Q4H PRN PRN IV Ondansetron HCl 4 MG Q4H PRN PRN IV Physical Exam General appearance: alert, awake Head/Eyes: atraumatic, EOMI, normocephalic ENT: NGT, moist mucosal membranes, normal nose Neck: full range of motion, non-tender, supple/n o meningismus Cardiovascular: normal capillary refill, normal heart sounds, regular rate rhythm Respiratory: aerating well, clear to auscultatio n, symmetric expansion, no distress Abdomen: abnormal bowel soun ds, distended, non-tender, normal bowel sounds, soft , no distention Extremities: moves all, normal range of motion, no edema Musculoskeletal: normal insp ection, painless range of motion, straight leg raise neg Neuro/OCEANOLOGIST: alert, oriented X 3, no motor deficit s, no sensory deficits Skin: dry Psychiatry: normal affect, n ormal judgment/insight, normal mood, not homicidal, not suicidal, no hallucinations Results Findings/Data: Laboratory Tests 01/08 01/07 0600 1800 Chemistry Sodium (134 - 147 mmol/L) 142 142 Potassium (3.4 - 5.0 mmol/L) 3.7 3.7 Chloride (100 - 108 mmol/L) 110 H 107 Carbon Dioxide (21 - 32 mmol/L) 26 29 Anion Gap (4.0 - 15.0 GAP calc) 6.0 6.0 BUN (7 - 18 MG/DL) 7 7 Creatinine (0.8 - 1.3 MG/DL) 1.1 1.2 Glomerular Filtr Rate (>60 estGFR) >=60 max est imate >=60 max estimate Glucose (70 - 110 MG/DL) 82 87 Calcium (8.5 - 10.1 MG/DL) 8.5 8.5 Magnesium (1.8 - 2.4 MG/DL) 2.2 Laboratory Tests 01/08 0600 Coagulation INR (0.8 - 1.2 INR Unit) 1.16 PT Patient/Control Mix (9.3 - 12.9 SECONDS) 13 .1 H Laboratory Tests 01/08 0600 Hematology WBC (3.5 - 11.0 K/mm3) 4.5 RBC (4.70 - 6.10 M/mm3) 4.02 L Hgb (12.3 - 15.9 G/DL) 11.4 L Hct (35.8 - 46.7 %) 36.9 MCV (86.3 - 98.9 Fl) 91.8 MCH (28.9 - 34.4 pg) 28.4 L MCHC (32.1 - 34.5 G/DL) 30.9 L RDW (11.5 - 14.5 SD) 14.9 H Plt Count (150 - 450 K/mm3) 151.0 MPV (7.0 - 9.6 fL) 10.40 H Neut % (Auto) (40 - 76 %) 62.8 Lymph % (Auto) (20.5 - 51.1 %) 24.4 Peach % (Auto) (1.7 - 9.3 %) 10.4 H Eos % (Auto) (0.0 - 6.0 %) 2.2 Baso % (Auto) (0.0 - 2.0 %) 0.2 Neut # (Auto) (1.8 - 7.6 K/mm3) 2.85 Lymph # (Auto) (0.6 - 3.0 K/mm3) 1.1 Peach # (Auto) (0.2 - 1.5 K/mm3) 0.5 Eos # (Auto) (0.0 - 0.4 K/mm3) 0.1 Baso # (Auto) (0.0 - 0.2 K/mm3) 0.0 Add Manual Diff (CRITERIA DIFF/SCN) NO Laboratory Tests 01/07 1357 Serology Nasal/Oral COVID-19 PCR (Negative) Negative Radiology data: Recent Impressions: RADIOLOGY - XR ABDOMEN 1 V 01/08 0515 Report Impression - Status: SIGNED Entered: 01/09/2020 0542 Impression: Stable abdomen. 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 Patient with complicated prior surgical history with colostomy and status post reversal all at different facilities. We are try ing to get the records. Does not appear to be true mechanical obstructio n and just related to the dilation of the transverse colon putting pressur e on gastric outlet. Surgery is on board and have recommended GI to b e involved as well as patient might need decompression of transverse colon or might need neostigmine. NPO IV fliuds NGTube to LWIS IV Pain medication 01/06: recommended GI evaluation by discussion with Dr Robertson yesterday as may need colonic decompression vs Neostigmine - G I notes suggeste GS evaluation pending as no notes in from GS yet Pending GS notes, will keep NPO for now Pat reports some improvement 01/07 GS signed off- see notes per GI Dr Edwards- plan for colo noscoipy in am, and also as KUB worse with increased abd distension start IV reglan, connect ng to LI WS and place rectal tube I will start IVF again as now NPO GI Px- PPI IV as NPO dvt Px- Lovenox 01/09/2020 Status post colonoscopy and decompression NG tube removed Continue to monitor closely We will get a KUB in a.m. Continue clear liquids for now Possibly advance diet in a.m. if KUB is normal Advise ambulation Disposition: Possible DC in a.m. if KUB is negat ector and tolerates p.o. at 1536 [facility] #: [id number] END OF REPORT 2020-01-09 [id number] [facility] 09:56:00-00:00 [place] [address] PATIENT NAME: DORA MCNEILL ADMIT DATE: ACCOUNT NO: [id number] ROOM NO: [id number] AGE: 49 REPORT TYPE: ENDOSCOPY REPORT SEX: M ADMITTING PHYSICIAN: Mark Perea MD ATTENDING PHYSICIAN: Mark ePrea MD Patient Name: Dora Mcneill Procedure Date: 01/08 9:56 AM Date of : 1970 Gender: Male Attending MD: Jay Mayo MD Procedure: Colonoscopy Indications: Decompression of acute non-toxic me gacolon Providers: Jay Mayo MD (Doctor) Referring MD: Self Referred Requesting Provider: Medicines: Monitored Anesthesia Care Complications: No immediate complications. Procedure: Pre-Anesthesia Assessment: - Prior to the procedure, a History and Physica l was performed, and patient medications and allergi es were reviewed. The risks and benefits of the procedu re and the sedation options and risks were discussed w ith the patient. All questions were answered and inform ed consent was obtained. Patient identification an d proposed procedure were verified by the physici an, the nurse, the public address system installer and the point of care technician in [facility] procedure room. Mental Status Examination: norm al. Airway Examination: normal oropharyngeal airway and neck mobility. Respiratory Examination: clear to auscultation. CV Examination: normal. Prophylac tic Antibiotics: The patient does not require proph ylactic antibiotics. Prior Anticoagulants: The patient has taken no previous anticoagulant or antiplatelet agent s. After reviewing the risks and benefits, the patient w as deemed in satisfactory condition to undergo the proced ure. The anesthesia plan was to use monitored anesthesia care (MAC). Immediately prior to administration of medications, the patient was re-assessed for ad equacy to receive sedatives. The heart rate, respiratory rate, oxygen saturations, blood pressure, adequacy of pulmonary ventilation, and response to care wer e monitored throughout the procedure. The physica l status of the patient was re-assessed after the proce dure. After I obtained informed consent, the scope wa s passed PATIENT NAME: DORA MCNEILL ACCOUNT #: [id number] under direct vision. Throughout the procedure, the patient's blood pressure, pulse, and oxygen sat urations were monitored continuously. The Colonoscope wa s introduced through the anus and advanced to the cecum, identified by appendiceal orifice and ileocecal valve. The colonoscopy was performed without difficult y. The patient tolerated the procedure well. The quali ty of the bowel preparation was inadequate. Findings: The perianal and digital rectal examinations we re normal. The lumen of the colon (entire examined portion ) was significantly dilated. A colonic decompression tube was place d. Impression: - Preparation of the colon was inade quate. - Dilated in the entire examined colon. - No specimens collected. Recommendation: - Return patient to [facility] for ongoing care. - Perform a flat plate abdominal x-ray tomorrow . - Clear liquid diet today. Jya Mayo MD 01/09/2020 10:22:04 AM This report has been signed electronically. Number of Addenda: 0 Note Initiated On: 01/09/2020 9:56 AM Estimated Blood Loss: Estimated blood loss was minimal. [address] [place] [address] Provation {[id number]}.pdf ProVation FT PDF at 1022 PATIENT NAME: DORA MCNEILL ACCOUNT #: [id number] 2020-01-08 [facility] 12:30:00-00:00 [facility] Hospitalist Progress Note REPORT#:[id number] REPORT STATUS: Signed DATE:01/08/20 TIME:1230 PATIENT: DORA MCNEILL UNIT #: [id number] ROOM/BED: [place] [id number] : 70 AGE: 49 SEX: M ATTEND: Lucia Perea MD ADM AUTHOR: Coco Nova MD * ALL edits or amendments must be made on the [employer]/computer document * Subjective Chief Complaint: No abd pain Tolerates clears but abd more distended had BM x 2 today Review of Systems Respiratory: Denies: SOB. Cardiovascular: Denies: chest pain. Neuro: Denies: dizziness. Objective General VS/I O: Vital Signs: Date Time Temp Pulse Resp B/P B/P Pulse O2 O2 F low FiO2 Mean Ox Delivery Rate 01/07 1219 96 Room air 21 01/07 1126 36.5 73 16 120/80 93.7 99 Room air 01/07 0800 36.6 50 16 126/79 99 01/07 0442 36.3 55 15 113/76 88.5 98 01/06 2331 36.5 63 15 102/69 80.1 93 Room air 01/06 1944 36.4 56 15 119/83 95.1 98 Room air 01/06 1526 36.7 57 16 125/84 97.9 99 Room air 24 hour I O ending at 0700: 01/07 0700 01/06 1900 Intake Total 1800.00 2150.00 Output Total 1000 950 Balance 800.00 1200.00 Intake, IV 1600.00 1850.00 Intake, Oral 200 Intake, Tube 300 Irrigant Number 1 1 Bowel Movements Number Voids 2 Output, 150 Gastric Drainage Output, Urine 1000 800 Patient Weight Weight (lb): 150 Weight (oz): 4.98 Weight (kg): 68.180 Physical Exam General appearance: alert, awake ENT: NGT, moist mucosal membranes, normal nose Neck: full range of motion, non-tender, supple/n o meningismus Cardiovascular: normal capillary refill, normal heart sounds, regular rate rhythm Respiratory: aerating well, clear to auscultatio n, symmetric expansion, no distress Abdomen: abnormal bowel soun ds, distended, non-tender, normal bowel sounds, soft , no distention Extremities: moves all, normal range of motion, no edema Musculoskeletal: normal insp ection, painless range of motion, straight leg raise neg Neuro/OCEANOLOGIST: alert, oriented X 3, no motor deficit s, no sensory deficits Skin: dry Diagnosis, Assessment Plan Consultants: gastroenterology, surgery Free Text DxA P Notes Free text DxA P notes: 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 Patient with complicated prior surgical history with colostomy and status post reversal all at different facilities. We are try ing to get the records. Does not appear to be true mechanical obstructio n and just related to the dilation of the transverse colon putting pressur e on gastric outlet. Surgery is on board and have recommended GI to b e involved as well as patient might need decompression of transverse colon or might need neostigmine. NPO IV fliuds NGTube to LWIS IV Pain medication 01/06: GS recommended GI evaluation by discussion with Dr Ailyn yesterday as may need colonic decompression vs Neostigmine - G I notes suggeste GS evaluation pending as no notes in from GS yet Pending GS notes, will keep NPO for now Pat reports some improvement 01/07 GS signed off- see notes per GI Dr Edwards- plan for colo noscoipy in am, and also as KUB worse with increased abd distension start IV reglan, connect ng to LI WS and place rectal tube I will start IVF again as now NPO GI Px- PPI IV as NPO dvt Px- Lovenox Electronically Signed by Coco Nova MD on 12/22 03/12 at 1233 RPT #: [id number] END OF REPORT 2020-01-08 [facility] 11:52:00-00:00 [facility] ([facility]) Gastroenterology Progress Note REPORT#:[id number] REPORT STATUS: Signed DATE:01/08/20 TIME:1152 PATIENT: DORA MCNEILL UNIT #: [id number] ROOM/BED: [place] [address] : 70 AGE: 49 SEX: M ATTEND: Lucia Perea MD ADM AUTHOR: Andre Solano * ALL edits or amendments must be made on the [employer]/computer document * Subjective Chief Complaint: abdominal distention HPI: Distention slightly improved. Initial labs this morning revealed abnormal potassium and magnesium levels. Labs were rechec ked. Initial draw inaccurate. KUB revealed persistent colonic dilation. Patien t reports 2 bowel movements. No nausea or vomiting. Review of Systems Free Text ROS Notes Free Text ROS Notes: Pertinent positives negatives noted in HPI Objective General VS/I O: Last Documented: Result Date Time Pulse Ox 99 01/07 1126 B/P 120/80 01/07 1126 B/P Mean 93.7 01/07 1126 O2 Delivery Room air 01/07 112 Temp 36.5 01/07 1126 Pulse 73 01/07 1126 Resp 16 01/07 1126 24 hour I O ending at 0700: 01/07 0700 01/06 1900 Intake Total 1800.00 2150.00 Output Total 1000 950 Balance 800.00 1200.00 Intake, IV 1600.00 1850.00 Intake, Oral 200 Intake, Tube 300 Irrigant Number 1 1 Bowel Movements Number Voids 2 Output, 150 Gastric Drainage Output, Urine 1000 800 Patient Weight Weight (lb): 150 Weight (oz): 4.98 Weight (kg): 68.180 Medications: Active Meds + DC'd Last 24 Hrs Potassium Chloride 40 MEQ ONCE ONE PO (UNV) Magnesium Sulfate/Dextrose 100 ML ONCE ONE IV (D C) Potassium Chloride 40 MEQ .Q10H IV (CKD) Dextrose/Water 1,000 ML Potassium Bicarbonate/Citric Acid 40 MEQ ONCE O NE PO (DC) Potassium Chloride 40 MEQ ONCE ONE PO (CAN) Bisacodyl 10 MG ONCE ONE RECTAL (DC) Bisacodyl 10 MG ONCE ONE PO (DC) Pantoprazole Sodium 40 MG DAILY IV Polyethylene Glycol 17 GM Q12HR FEED-TUBE Potassium Chloride 100 ML Q2HR IV (DC) Potassium Chloride 16 MEQ DAILY PO Metronidazole/Sodium Chloride 100 ML Q8HR IV (CK D) Famotidine 20 MG BID IV (DC) Ceftriaxone Sodium 1,000 MG Q24H IM Sterile Water 10 ML Enoxaparin Sodium 40 MG Q24H SUBQ Morphine Sulfate 2 MG Q4H PRN PRN IV Morphine Sulfate 3 MG Q4H PRN PRN IV Ondansetron HCl 4 MG Q4H PRN PRN IV Sodium Chloride 1,000 ML .Q8H IV (DC) Physical Exam General appearance: awake, oriented HEENT: atraumatic, normocephalic Cardiovascular: normal capillary refill, regular rate rhythm Respiratory: aerating well, no distress Abdomen: abnormal bowel sounds, distended (mild) , soft Extremities: moves all, no cyanosis Musculoskeletal: normal inspection Neuro/OCEANOLOGIST: alert, oriented X 3 Skin: dry, intact Results Findings/Data: Laboratory Tests 01/08/20 1014: [Embedded Image Not Available] 01/08/20 0440: [Embedded Image Not Available] Laboratory Tests 01/07 1014 Chemistry Sodium (134 - 147 mmol/L) 140 Potassium (3.4 - 5.0 mmol/L) 3.7 Chloride (100 - 108 mmol/L) 108 Carbon Dioxide (21 - 32 mmol/L) 25 Anion Gap (4.0 - 15.0 GAP calc) 7.0 BUN (7 - 18 MG/DL) 8 Creatinine (0.8 - 1.3 MG/DL) 1.3 Glomerular Filtr Rate (>60 estGFR) >=60 max est imate Glucose (70 - 110 MG/DL) 104 Calcium (8.5 - 10.1 MG/DL) 8.8 Magnesium (1.8 - 2.4 MG/DL) 2.6 H Total Bilirubin (0.2 - 1.2 MG/DL) 0.70 AST (15 - 37 Unit/L) 16 ALT (12 - 78 Unit/L) 23 Total Alk Phosphatase (50 - 136 Unit/L) 50 Total Protein (6.4 - 8.2 G/DL) 6.7 Albumin (3.4 - 5.0 G/DL) 3.8 Globulin (GM/dL) 2.9 Albumin/Globulin Ratio (1.2 - 2.2 RATIO) 1.3 01/07 01/06 01/06 0440 1605 1605 Chemistry Sodium (134 - 147 mmol/L) 150 H Potassium (3.4 - 5.0 mmol/L) 2.5 *L Chloride (100 - 108 mmol/L) 127 H Carbon Dioxide (21 - 32 mmol/L) 16 L Anion Gap (4.0 - 15.0 GAP calc) 7.0 BUN (7 - 18 MG/DL) 7 Creatinine (0.8 - 1.3 MG/DL) 0.5 L Glomerular Filtr Rate (>60 estGFR) >=60 max es timate Glucose (70 - 110 MG/DL) 52 L Calcium (8.5 - 10.1 MG/DL) <5.0 *L Ionized Calcium Edwin (1.12 - 1.32 mmol/L) 1.12 Magnesium (1.8 - 2.4 MG/DL) 1.3 L 2.3 Iron (65 - 175 mcG/DL) 38 L TIBC (250 - 450 mcG/DL) 322 % Saturation (12 - 57 % calc) 12 Ferritin (5.0 - 323.0 NG/ML) 17.6 Total Bilirubin (0.2 - 1.2 MG/DL) 0.30 AST (15 - 37 Unit/L) 8 L ALT (12 - 78 Unit/L) 10 L Total Alk Phosphatase (50 - 136 Unit/L) 21 L Total Protein (6.4 - 8.2 G/DL) 2.9 L Albumin (3.4 - 5.0 G/DL) 1.7 L Globulin (GM/dL) 1.2 Albumin/Globulin Ratio (1.2 - 2.2 RATIO) 1.4 Laboratory Tests 01/07 01/07 1014 0440 Hematology WBC (3.5 - 11.0 K/mm3) 5.2 2.3 *L RBC (4.70 - 6.10 M/mm3) 4.30 L 2.70 L Hgb (12.3 - 15.9 G/DL) 12.1 L 7.6 L Hct (35.8 - 46.7 %) 39.8 25.3 L MCV (86.3 - 98.9 Fl) 92.6 93.7 MCH (28.9 - 34.4 pg) 28.1 L 28.1 L MCHC (32.1 - 34.5 G/DL) 30.4 L 30.0 L RDW (11.5 - 14.5 SD) 15.0 H 14.7 H Plt Count (150 - 450 K/mm3) 182.0 113.0 L MPV (7.0 - 9.6 fL) 10.80 H 10.30 H Neut % (Auto) (40 - 76 %) 61.1 48.9 Lymph % (Auto) (20.5 - 51.1 %) 26.1 36.8 Peach % (Auto) (1.7 - 9.3 %) 9.7 H 11.3 H Eos % (Auto) (0.0 - 6.0 %) 2.7 2.6 Baso % (Auto) (0.0 - 2.0 %) 0.4 0.4 Neut # (Auto) (1.8 - 7.6 K/mm3) 3.16 1.13 L Lymph # (Auto) (0.6 - 3.0 K/mm3) 1.4 0.9 Peach # (Auto) (0.2 - 1.5 K/mm3) 0.5 0.3 Eos # (Auto) (0.0 - 0.4 K/mm3) 0.1 0.1 Baso # (Auto) (0.0 - 0.2 K/mm3) 0.0 0.0 Add Manual Diff (CRITERIA DIFF/SCN) NO NO Radiology Data: Recent Impressions: RADIOLOGY - XR ABDOMEN 1 V 01/07 0500 Report Impression - Status: SIGNED Entered: 01/08/2020 0831 IMPRESSION: Generalized ileus versus distal obst ruction. Impression By: [place] - Bernardo Ochoa M.D. Results: labs reviewed, vital signs stable Diagnosis, Assessment Plan Free Text A P: Impression 1. SBO/Colonic distention 2. Abdominal pain - improved 3. History of colon resection with colostomy s/p reversal 4. Anemia Plan - NGT to LIWS - Serial abdominal exams; KUB today revealed per sistent colonic distention - General surgery signed off - Monitor BMs - Continue IV abx - Miralax BID - Replenish potassium and magnesium. Goal potass ium of 4 and Magnesium of 2. - iron studies noted - Colonoscopy tomorrow with decompression - Dulcolax supp x1 - GoLYTELY prep - Insert rectal tube - Will follow Electronically Signed by Andre Solano on at 1209 RPT #: [id number] END OF REPORT 2020-01-08 [facility] 11:52:00-00:00 [facility] ([facility]) Gastroenterology Progress Note REPORT#:[id number] REPORT STATUS: Signed DATE:01/08/20 TIME:1152 PATIENT: DORA MCNEILL UNIT #: [id number] ROOM/BED: [place] [address] : 70 AGE: 49 SEX: M ATTEND: Lucia Perea MD ADM AUTHOR: Andre Solano * ALL edits or amendments must be made on the [employer]/computer document * Subjective Chief Complaint: abdominal distention HPI: Distention slightly improved. Initial labs this morning revealed abnormal potassium and magnesium levels. Labs were rechec ked. Initial draw inaccurate. KUB revealed persistent colonic dilation. Patien t reports 2 bowel movements. No nausea or vomiting. Review of Systems Free Text ROS Notes Free Text ROS Notes: Pertinent positives negatives noted in HPI Objective General VS/I O: Last Documented: Result Date Time Pulse Ox 99 01/07 1126 B/P 120/80 01/07 1126 B/P Mean 93.7 01/07 1126 O2 Delivery Room air 01/07 1126 Temp 36.5 01/07 1126 Pulse 73 01/07 1126 Resp 16 01/07 1126 24 hour I O ending at 0700: 01/07 0700 01/06 1900 Intake Total 1800.00 2150.00 Output Total 1000 950 Balance 800.00 1200.00 Intake, IV 1600.00 1850.00 Intake, Oral 200 Intake, Tube 300 Irrigant Number 1 1 Bowel Movements Number Voids 2 Output, 150 Gastric Drainage Output, Urine 1000 800 Patient Weight Weight (lb): 150 Weight (oz): 4.98 Weight (kg): 68.180 Medications: Active Meds + DC'd Last 24 Hrs Potassium Chloride 40 MEQ ONCE ONE PO (UNV) Magnesium Sulfate/Dextrose 100 ML ONCE ONE IV (D C) Potassium Chloride 40 MEQ .Q10H IV (CKD) Dextrose/Water 1,000 ML Potassium Bicarbonate/Citric Acid 40 MEQ ONCE ON E PO (DC) Potassium Chloride 40 MEQ ONCE ONE PO (CAN) Bisacodyl 10 MG ONCE ONE RECTAL (DC) Bisacodyl 10 MG ONCE ONE PO (DC) Pantoprazole Sodium 40 MG DAILY IV Polyethylene Glycol 17 GM Q12HR FEED-TUBE Potassium Chloride 100 ML Q2HR IV (DC) Potassium Chloride 16 MEQ DAILY PO Metronidazole/Sodium Chloride 100 ML Q8HR IV (CK D) Famotidine 20 MG BID IV (DC) Ceftriaxone Sodium 1,000 MG Q24H IM Sterile Water 10 ML Enoxaparin Sodium 40 MG Q24H SUBQ Morphine Sulfate 2 MG Q4H PRN PRN IV Morphine Sulfate 3 MG Q4H PRN PRN IV Ondansetron HCl 4 MG Q4H PRN PRN IV Sodium Chloride 1,000 ML .Q8H IV (DC) Physical Exam General appearance: awake, oriented HEENT: atraumatic, normocephalic Cardiovascular: normal capillary refill, regular rate rhythm Respiratory: aerating well, no distress Abdomen: abnormal bowel sounds, distended (mild) , soft Extremities: moves all, no cyanosis Musculoskeletal: normal inspection Neuro/OCEANOLOGIST: alert, oriented X 3 Skin: dry, intact Results Findings/Data: Laboratory Tests 01/08/20 1014: [Embedded Image Not Available] 01/08/20 0440: [Embedded Image Not Available] Laboratory Tests 01/07 1014 Chemistry Sodium (134 - 147 mmol/L) 140 Potassium (3.4 - 5.0 mmol/L) 3.7 Chloride (100 - 108 mmol/L) 108 Carbon Dioxide (21 - 32 mmol/L) 25 Anion Gap (4.0 - 15.0 GAP calc) 7.0 BUN (7 - 18 MG/DL) 8 Creatinine (0.8 - 1.3 MG/DL) 1.3 Glomerular Filtr Rate (>60 estGFR) >=60 max est imate Glucose (70 - 110 MG/DL) 104 Calcium (8.5 - 10.1 MG/DL) 8.8 Magnesium (1.8 - 2.4 MG/DL) 2.6 H Total Bilirubin (0.2 - 1.2 MG/DL) 0.70 AST (15 - 37 Unit/L) 16 ALT (12 - 78 Unit/L) 23 Total Alk Phosphatase (50 - 136 Unit/L) 50 Total Protein (6.4 - 8.2 G/DL) 6.7 Albumin (3.4 - 5.0 G/DL) 3.8 Globulin (GM/dL) 2.9 Albumin/Globulin Ratio (1.2 - 2.2 RATIO) 1.3 01/07 01/06 01/06 0440 1605 1605 Chemistry Sodium (134 - 147 mmol/L) 150 H Potassium (3.4 - 5.0 mmol/L) 2.5 *L Chloride (100 - 108 mmol/L) 127 H Carbon Dioxide (21 - 32 mmol/L) 16 L Anion Gap (4.0 - 15.0 GAP calc) 7.0 BUN (7 - 18 MG/DL) 7 Creatinine (0.8 - 1.3 MG/DL) 0.5 L Glomerular Filtr Rate (>60 estGFR) >=60 max est imate Glucose (70 - 110 MG/DL) 52 L Calcium (8.5 - 10.1 MG/DL) <5.0 *L Ionized Calcium Edwin (1.12 - 1.32 mmol/L) 1.12 Magnesium (1.8 - 2.4 MG/DL) 1.3 L 2.3 Iron (65 - 175 mcG/DL) 38 L TIBC (250 - 450 mcG/DL) 322 % Saturation (12 - 57 % calc) 12 Ferritin (5.0 - 323.0 NG/ML) 17.6 Total Bilirubin (0.2 - 1.2 MG/DL) 0.30 AST (15 - 37 Unit/L) 8 L ALT (12 - 78 Unit/L) 10 L Total Alk Phosphatase (50 - 136 Unit/L) 21 L Total Protein (6.4 - 8.2 G/DL) 2.9 L Albumin (3.4 - 5.0 G/DL) 1.7 L Globulin (GM/dL) 1.2 Albumin/Globulin Ratio (1.2 - 2.2 RATIO) 1.4 Laboratory Tests 01/07 01/07 1014 0440 Hematology WBC (3.5 - 11.0 K/mm3) 5.2 2.3 *L RBC (4.70 - 6.10 M/mm3) 4.30 L 2.70 L Hgb (12.3 - 15.9 G/DL) 12.1 L 7.6 L Hct (35.8 - 46.7 %) 39.8 25.3 L MCV (86.3 - 98.9 Fl) 92.6 93.7 MCH (28.9 - 34.4 pg) 28.1 L 28.1 L MCHC (32.1 - 34.5 G/DL) 30.4 L 30.0 L RDW (11.5 - 14.5 SD) 15.0 H 14.7 H Plt Count (150 - 450 K/mm3) 182.0 113.0 L MPV (7.0 - 9.6 fL) 10.80 H 10.30 H Neut % (Auto) (40 - 76 %) 61.1 48.9 Lymph % (Auto) (20.5 - 51.1 %) 26.1 36.8 Peach % (Auto) (1.7 - 9.3 %) 9.7 H 11.3 H Eos % (Auto) (0.0 - 6.0 %) 2.7 2.6 Baso % (Auto) (0.0 - 2.0 %) 0.4 0.4 Neut # (Auto) (1.8 - 7.6 K/mm3) 3.16 1.13 L Lymph # (Auto) (0.6 - 3.0 K/mm3) 1.4 0.9 Peach # (Auto) (0.2 - 1.5 K/mm3) 0.5 0.3 Eos # (Auto) (0.0 - 0.4 K/mm3) 0.1 0.1 Baso # (Auto) (0.0 - 0.2 K/mm3) 0.0 0.0 Add Manual Diff (CRITERIA DIFF/SCN) NO NO Radiology Data: Recent Impressions: RADIOLOGY - XR ABDOMEN 1 V 01/07 0500 Report Impression - Status: SIGNED Entered: 01/08/2020 0831 IMPRESSION: Generalized ileus versus distal obst ruction. Impression By: [place] - Bernardo Ochoa M.D. Results: labs reviewed, vital signs stable Diagnosis, Assessment Plan Free Text A P: Impression 1. SBO/Colonic distention 2. Abdominal pain - improved 3. History of colon resection with colostomy s/p reversal 4. Anemia Plan - NGT to LIWS - Serial abdominal exams; KUB today revealed per sistent colonic distention - General surgery signed off - Monitor BMs - Continue IV abx - Miralax BID - Replenish potassium and magnesium. Goal potass ium of 4 and Magnesium of 2. - iron studies noted - Colonoscopy tomorrow with decompression - Dulcolax supp x1 - GoLYTELY prep - Insert rectal tube - Will follow Electronically Signed by Andre Solano on at 1209 Electronically Signed by Yas Edwards MD on 0 at 0736 RPT #: [id number] END OF REPORT 2020-01-07 [facility] 15:15:00-00:00 [facility] ([facility]) Pharmacy Progress Note REPORT#:[id number] REPORT STATUS: Signed DATE:01/07/20 TIME:1515 PATIENT: DORA MCNEILL UNIT #: [id number] ROOM/BED: [place] [id number] : 70 AGE: 49 SEX: M ATTEND: Lucia Perea MD ADM AUTHOR: Keenan Lerma [facility]ly [facility] * ALL edits or amendments must be made on the el [employer]/computer document * Pharmacy Note Medication therapy: Famotidine IV + Pantoprazole IV Indication for treatment: ppx Current therapy: Famotidine 40mg IV bid + Pantoprazole 40mg IV da shannon Vital signs: Vital Signs Date Temp Pulse Resp B/P B/P Mean Pulse Ox FiO2 01/04-01/06 36.4-36.8 61-78 - 104-133/68-83 80.2-99.8 95-100 Labs: Laboratory Tests: 01/06 01/05 0620 0525 Chemistry BUN (7 - 18 MG/DL) 11 22 H Creatinine (0.8 - 1.3 MG/DL) 0.7 L 1.0 Prior therapy: Famotidine 20mg q12hr Treatment plan: OK to discon tinue Famotidine 20mg; duplicated with Pantoprazole Regimen: Ok to dc Famotidine 20mg IV bid continue Pantopr azole 40mg per Dr. Nova at 1518 RPT #: [id number] END OF REPORT 2020-01-07 [facility] 13:52:00-00:00 [facility] General Surgery Progress Note REPORT#:[id number] REPORT STATUS: Signed DATE:01/07/20 TIME:1352 PATIENT: DORA MCNEILL UNIT #: [id number] ROOM/BED: [place] [address] : 70 AGE: 49 SEX: M ATTEND: Lucia Perea MD ADM AUTHOR: Anthony Davies MD * ALL edits or amendments must be made on the [employer]/computer document * Subjective Chief Complaint: None HPI: 49 yo M with chronic colonic distention. Patient reports: Yes: ambulating, feeling better, flatus. No: com plaints, fever, nausea, vomiting. Objective General VS/I O: Last Documented: Result Date Time Pulse Ox 98 01/06 1145 B/P 115/72 01/06 1145 B/P Mean 86.4 01/06 1145 O2 Delivery Room air 01/06 1145 Temp 97.5 01/06 1145 Pulse 63 01/06 1145 Resp 16 01/06 1145 Vital Signs Date Temp Pulse Resp B/P B/P Mean Pulse Ox FiO2 01/05-01/06 97.5-98.1 63-72 105-128/68-77 81.7-93.7 95-100 24 hour I O ending at 0700: 01/06 0700 01/05 1900 Intake Total 1500.00 Output Total 2550 Balance -1050.00 Intake, IV 1500.00 Output, 150 Gastric Drainage Output, Urine 2400 Patient Weight Weight (lb): 150 Weight (oz): 4.98 Weight (kg): 68.180 Medications: Active Meds + DC'd Last 24 Hrs Bisacodyl 10 MG ONCE ONE RECTAL (DC) Bisacodyl 10 MG ONCE ONE PO (DC) Pantoprazole Sodium 40 MG DAILY IV Polyethylene Glycol 17 GM Q12HR FEED-TUBE Potassium Chloride 100 ML Q2HR IV Potassium Chloride 16 MEQ DAILY PO Magnesium Sulfate 50 ML ONCE ONE IV (DC) Metronidazole/Sodium Chloride 100 ML Q8HR IV (CK D) Famotidine 20 MG BID IV (CKD) Ceftriaxone Sodium 1,000 MG Q24H IM Sterile Water 10 ML Enoxaparin Sodium 40 MG Q24H SUBQ Morphine Sulfate 2 MG Q4H PRN PRN IV Morphine Sulfate 3 MG Q4H PRN PRN IV Ondansetron HCl 4 MG Q4H PRN PRN IV Sodium Chloride 1,000 ML .Q8H IV Physical Exam General appearance: alert, awake, no acu te distress, pleasant, conversational, no respiratory distress HEENT: anicteric, atraumatic, normocephalic Respiratory: aerating well, symmetric expansion, no distress Abdomen: no distention Extremities: moves all Neuro/OCEANOLOGIST: alert, normal speech Psychiatry: normal affect Results Findings/Data: Laboratory Tests 01/07/20619: [Embedded Image Not Available] Laboratory Tests 01/07 620 Chemistry Sodium (134 - 147 mmol/L) 146 Potassium (3.4 - 5.0 mmol/L) 2.6 *L Chloride (100 - 108 mmol/L) 122 H Carbon Dioxide (21 - 32 mmol/L) 15 L Anion Gap (4.0 - 15.0 GAP calc) 9.0 BUN (7 - 18 MG/DL) 11 Creatinine (0.8 - 1.3 MG/DL) 0.7 L Glomerular Filtr Rate (>60 estGFR) >=60 max est imate Glucose (70 - 110 MG/DL) 123 H Calcium (8.5 - 10.1 MG/DL) 5.4 *L Laboratory Tests 01/07 620 Hematology WBC (3.5 - 11.0 K/mm3) 4.0 RBC (4.70 - 6.10 M/mm3) 3.29 L Hgb (12.3 - 15.9 G/DL) 9.2 L Hct (35.8 - 46.7 %) 31.0 L MCV (86.3 - 98.9 Fl) 94.2 MCH (28.9 - 34.4 pg) 28.0 L MCHC (32.1 - 34.5 G/DL) 29.7 L RDW (11.5 - 14.5 SD) 14.9 H Plt Count (150 - 450 K/mm3) 121.0 L MPV (7.0 - 9.6 fL) 10.40 H Neut % (Auto) (40 - 76 %) 68.8 Lymph % (Auto) (20.5 - 51.1 %) 20.8 Peach % (Auto) (1.7 - 9.3 %) 7.3 Eos % (Auto) (0.0 - 6.0 %) 2.8 Baso % (Auto) (0.0 - 2.0 %) 0.3 Neut # (Auto) (1.8 - 7.6 K/mm3) 2.72 Lymph # (Auto) (0.6 - 3.0 K/mm3) 0.8 Peach # (Auto) (0.2 - 1.5 K/mm3) 0.3 Eos # (Auto) (0.0 - 0.4 K/mm3) 0.1 Baso # (Auto) (0.0 - 0.2 K/mm3) 0.0 Add Manual Diff (CRITERIA DIFF/SCN) NO Radiology data: Recent Impressions: RADIOLOGY - XR ABDOMEN 1 V 01/06 0707 Report Impression - Status: SIGNED Entered: 01/07/2020 1032 IMPRESSION: 1. Diffuse gaseous distention of the colon is ag ain identified of approximately similar degree. 2. NG tube in place. Impression By: Katelynn - Sukhwinder Hinkle M.D. Results: labs reviewed, vital signs stab le, x-ray personally reviewed, current med profile rev'd Diagnosis, Assessment Plan Problem List/A P: 1. 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 1. No plans for surgical intervention at this ti me. 2. Bowel regimen per GI. 3. Advance diet per GI. 4. General surgery to sign off. Quality Current Medications Current medication review: I attest that the foregoing medication list in t he medical record is true, accurate, and complete to the best of my knowled ge. Electronically Signed by Anthony Davies MD on 0 01/07/20 at 1403 RPT #: [id number] END OF REPORT 2020-01-07 [facility] 11:29:00-00:00 [facility] ([facility]) Hospitalist Progress Note REPORT#:[id number] REPORT STATUS: Signed DATE:01/07/20 TIME:1129 PATIENT: DORA MCNEILL UNIT #: [id number] ROOM/BED: [place] [address] : 70 AGE: 49 SEX: M ATTEND: Lucia Perea MD ADM AUTHOR: Coco Nova MD * ALL edits or amendments must be made on the [employer] document * Subjective Chief Complaint: Abdominal pain and distention better nausea no BM and no gas today Review of Systems Respiratory: Denies: SOB. Cardiovascular: Denies: chest pain. Neuro: Denies: dizziness. Objective General VS/I O: Vital Signs: Date Time Temp Pulse Resp B/P B/P Pulse O2 O2 Flow FiO2 Mean Ox Delivery Rate 01/06 0721 36.6 66 16 109/72 84.6 96 Room air 01/06 0356 36.4 64 15 105/70 81.7 95 Room air 01/05 2357 36.7 63 16 110/68 82.0 100 Room air 01/059 36.7 72 15 128/77 93.7 97 Room air 01/05 1517 36.5 65 16 117/75 89.3 98 Room air 24 hour I O ending at 0700: 01/06 0700 01/05 1900 Intake Total 1500.00 Output Total 2550 Balance -1050.00 Intake, IV 1500.00 Output, 150 Gastric Drainage Output, Urine 2400 Patient Weight Weight (lb): 150 Weight (oz): 4.98 Weight (kg): 68.180 Physical Exam General appearance: alert, awake ENT: NGT, moist mucosal membranes, normal nose Neck: full range of motion, non-tender, supple/n o meningismus Cardiovascular: normal capillary refill, normal heart sounds, regular rate rhythm Respiratory: aerating well, clear to auscultatio n, symmetric expansion, no distress Abdomen: distended, tenderness Extremities: moves all, normal range of motion, no edema Musculoskeletal: normal insp ection, painless range of motion, straight leg raise neg Neuro/OCEANOLOGIST: alert, oriented X 3, no motor deficit s, no sensory deficits Diagnosis, Assessment Plan Consultants: gastroenterology, surgery Free Text DxA P Notes Free text DxA P notes: 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 Patient with complicated prior surgical history with colostomy and status post reversal all at different facilities. We are try ing to get the records. Does not appear to be true mechanical obstructio n and just related to the dilation of the transverse colon putting pressur e on gastric outlet. Surgery is on board and have recommended GI to b e involved as well as patient might need decompression of transverse colon or might need neostigmine. NPO IV fliuds NGTube to LWIS IV Pain medication 01/06: recommended GI evaluation by discussion with Dr Robertson yesterday as may need colonic decompression vs Neostigmine - G I notes suggeste GS evaluation pending as no notes in from GS yet Pending GS notes, will keep NPO for now Pat reports some improvement GI Px- PPI IV as NPO dvt Px- Lovenox Electronically Signed by Coco Nova MD on 12/22 02/10 at 1143 RPT #: [id number] END OF REPORT 2020-01-07 [facility] 11:16:00-00:00 [facility] ([facility]) Gastroenterology Progress Note REPORT#:[id number] REPORT STATUS: Signed DATE:01/07/20 TIME:1116 PATIENT: DORA MCNEILL UNIT #: [id number] ROOM/BED: [place] [address] : 70 AGE: 49 SEX: M ATTEND: Lucia Perea MD ADM AUTHOR: Yas Edwards MD * ALL edits or amendments must be made on the el [employer]/computer document * Subjective Chief Complaint: abdominal distention HPI: He reports that his abdomina l distention is much improved. NGT remains to LI. Repeat KUB reveals colonic distention. No BM. De nies flatus. Review of Systems Free Text ROS Notes Free Text ROS Notes: Pertinent positives and negatives noted in HPI Objective General VS/I O: Last Documented: Result Date Time Pulse Ox 96 01/06 721 B/P 109/72 01/06 721 B/P Mean 84.6 01/06 721 O2 Delivery Room air 01/06 721 Temp 36.6 01/06 721 Pulse 66 01/06 721 Resp 16 01/06 721 24 hour I O ending at 0700: 01/06 1900 Intake Total 1500.00 Output Total 2550 Balance -1050.00 Intake, IV 1500.00 Output, 150 Gastric Drainage Output, Urine 2400 Patient Weight Weight (lb): 150 Weight (oz): 4.98 Weight (kg): 68.180 Medications: Active Meds + DC'd Last 24 Hrs Polyethylene Glycol 17 GM BID FEED-TUBE (UNV) Bisacodyl 10 MG ONCE ONE RECTAL (UNV) Potassium Chloride 100 ML Q2HR IV (CKD) Potassium Chloride 16 MEQ DAILY PO Magnesium Sulfate 50 ML ONCE ONE IV (DC) Metronidazole/Sodium Chloride 100 ML Q8HR IV (CK D) Famotidine 20 MG BID IV (CKD) Ceftriaxone Sodium 1,000 MG Q24H IM Sterile Water 10 ML Enoxaparin Sodium 40 MG Q24H SUBQ Morphine Sulfate 2 MG Q4H PRN PRN IV Morphine Sulfate 3 MG Q4H PRN PRN IV Ondansetron HCl 4 MG Q4H PRN PRN IV Sodium Chloride 1,000 ML .Q8H IV Physical Exam General appearance: awake, oriented HEENT: atraumatic, normocephalic Cardiovascular: normal capillary refill, regular rate rhythm Respiratory: aerating well, no distress Abdomen: abnormal bowel sounds, distended (mild) , soft Extremities: moves all, no cyanosis Musculoskeletal: normal inspection Neuro/OCEANOLOGIST: alert, oriented X 3 Skin: dry, intact Results Findings/Data: Laboratory Tests 01/07/20619: [Embedded Image Not Available] Laboratory Tests 01/07 620 Chemistry Sodium (134 - 147 mmol/L) 146 Potassium (3.4 - 5.0 mmol/L) 2.6 *L Chloride (100 - 108 mmol/L) 122 H Carbon Dioxide (21 - 32 mmol/L) 15 L Anion Gap (4.0 - 15.0 GAP calc) 9.0 BUN (7 - 18 MG/DL) 11 Creatinine (0.8 - 1.3 MG/DL) 0.7 L Glomerular Filtr Rate (>60 estGFR) >=60 max est imate Glucose (70 - 110 MG/DL) 123 H Calcium (8.5 - 10.1 MG/DL) 5.4 *L Laboratory Tests 01/07 620 Hematology WBC (3.5 - 11.0 K/mm3) 4.0 RBC (4.70 - 6.10 M/mm3) 3.29 L Hgb (12.3 - 15.9 G/DL) 9.2 L Hct (35.8 - 46.7 %) 31.0 L MCV (86.3 - 98.9 Fl) 94.2 MCH (28.9 - 34.4 pg) 28.0 L MCHC (32.1 - 34.5 G/DL) 29.7 L RDW (11.5 - 14.5 SD) 14.9 H Plt Count (150 - 450 K/mm3) 121.0 L MPV (7.0 - 9.6 fL) 10.40 H Neut % (Auto) (40 - 76 %) 68.8 Lymph % (Auto) (20.5 - 51.1 %) 20.8 Peach % (Auto) (1.7 - 9.3 %) 7.3 Eos % (Auto) (0.0 - 6.0 %) 2.8 Baso % (Auto) (0.0 - 2.0 %) 0.3 Neut # (Auto) (1.8 - 7.6 K/mm3) 2.72 Lymph # (Auto) (0.6 - 3.0 K/mm3) 0.8 Peach # (Auto) (0.2 - 1.5 K/mm3) 0.3 Eos # (Auto) (0.0 - 0.4 K/mm3) 0.1 Baso # (Auto) (0.0 - 0.2 K/mm3) 0.0 Add Manual Diff (CRITERIA DIFF/SCN) NO Radiology Data: Recent Impressions: RADIOLOGY - XR ABDOMEN 1 V 01/06 0707 Report Impression - Status: SIGNED Entered: 01/07/2020 1032 IMPRESSION: 1. Diffuse gaseous distention of the colon is ag ain identified of approximately similar degree. 2. NG tube in place. Impression By: Katelynn - Sukhwinder Hinkle M.D. Results: labs reviewed, vital signs stable Diagnosis, Assessment Plan Free Text A P: Impression 1. SBO/Colonic distention 2. Abdominal pain - improved 3. History of colon resection with colostomy s/p reversal 4. Anemia Plan - Continue NPO - NGT to LIS - Serial abdominal exams; KUB today revealed col onic distention with formed fecal material in left colon . Abdominal distention improving. Repeat KUB in the AM. - General surgery evaluation pending - Monitor BMs - Continue IV abx - Dulcolax x2 - Miralax BID - Enema now - Replenish potassium and magnesium Goal potassi um of 4 and Magnesium of 2. - CMP in AM along with Magnesium - Check iron studies given anemia - Will follow Progress note by Andre Solano NP-C. Patient evalua dain with Dr. Edwards and plan of care discussed and agreed upon. Electronically Signed by Yas Edwards MD on 0 at 1130 RPT #: [id number] END OF REPORT 2020-01-06 [facility] 16:23:00-00:00 [facility] ([facility]) Pharmacy Progress Note REPORT#:[id number] REPORT STATUS: Signed DATE:01/06/20 TIME:1623 PATIENT: DORA MCNEILL UNIT #: [id number] ROOM/BED: [place] [address] : 70 AGE: 49 SEX: M ATTEND: Lucia Perea MD ADM AUTHOR: Manuel Oconnell [facility] * ALL edits or amendments must be made on the el [employer]/computer document * Pharmacy Note Medication therapy: Levofloxacin Indication for treatment: Intra-abdominal infection Current therapy: Levofloxacin Treatment plan: initiation of therapy Regimen: Switch to ceftriaxone 1g every [address] [facility] to auto-switch fluoroquinolone orders for ceftriaxone Electronically Signed by Manuel Oconnell gera meneses n 01/06/20 at 1624 RPT #: [id number] END OF REPORT 2020-01-06 [facility] 15:40:00-00:00 [facility] ([facility]) GE Consultation Note REPORT#:[id number] REPORT STATUS: Signed DATE:01/06/20 TIME:154 PATIENT: DORA MCNEILL UNIT #: [id number] ROOM/BED: [place] [address] : 70 AGE: 49 SEX: M ATTEND: Lucia Perea MD ADM AUTHOR: Verona Frost PA-C * ALL edits or amendments must be made on the [employer]/computer document * Verona Frost 01/06/20 1540: History of Present Illness Chief complaint: abdominal pain HPI: Patient is a 49 year old mal e with past medical history of colon resection with colostomy s/p reversal who presented to the [facility] with complaints of LLQ. 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 Patient was admitted to our facility for SBO. NGT was inserted to LIS. General surgery has been consulted. GI was consulted for evaluation. Upon examination today, patient was sleeping comfortably. He denied abdominal pain at this time. Also denied nausea and vomiting. He states his l ast bowel movement was yesterday. Patient is a fairly poor historian. History - Adult longitudinal Additional medical history: bowel obstrution Additional surgical history: bowel resection colsotomy reversal of colostomy Smoking status for patients 13 years old or olde r: Never Smoker Allergies: Coded Allergies: No Known Allergies (01/05/20) Review of Systems Free Text ROS Notes Free Text ROS Notes: 14 body systems reviewed and negative otherwise stated in HPI Objective Physical Exam VS/I O: Last Documented: Result Date Time Pulse Ox 98 01/05 1517 B/P 117/75 01/05 1517 B/P Mean 89.3 05/15 1517 O2 Delivery Room air 01/05 1517 Temp 97.7 01/05 1517 Pulse 65 01/05 1517 Resp 16 01/05 1517 24 hour I O ending at 0700: 01/05 0700 01/04 1900 Intake Total 1125.00 Output Total 400 Balance 725.00 Intake, IV 1125.00 Number Voids 1 Output, Urine 400 Patient 150 lb Weight Weight Stated/Reported Measurement Method Patient Weight Weight (lb): 150 Weight (oz): 4.98 Weight (kg): 68.180 General appearance: sleeping comfortably, alert, awake, oriented, no acute distress HEENT: anicteric, atraumatic, normocephalic, NGT to LIS Neck: full range of motion, non-tender Cardiovascular: normal S1/S2, regular rate rhyth m Respiratory: clear to auscultation, equal breath sounds, symmetric expansion Abdomen: distended, non-tender, soft Extremities: moves all, normal range of motion Musculoskeletal: full range of motion Neuro/OCEANOLOGIST: alert, oriented X 3 Skin: dry, intact Psychiatry: normal affect, normal judgment/insig ht Results Findings/Data: Laboratory Tests 01/06/20524: [Embedded Image Not Available] Laboratory Tests 01/05 525 Chemistry Sodium (134 - 147 mmol/L) 143 Potassium (3.4 - 5.0 mmol/L) 4.0 Chloride (100 - 108 mmol/L) 113 H Carbon Dioxide (21 - 32 mmol/L) 25 Anion Gap (4.0 - 15.0 GAP calc) 5.0 BUN (7 - 18 MG/DL) 22 H Creatinine (0.8 - 1.3 MG/DL) 1.0 Glomerular Filtr Rate (>60 estGFR) >=60 max est imate Glucose (70 - 110 MG/DL) 85 Calcium (8.5 - 10.1 MG/DL) 8.2 L Total Bilirubin (0.2 - 1.2 MG/DL) 0.70 AST (15 - 37 Unit/L) 15 ALT (12 - 78 Unit/L) 27 Total Alk Phosphatase (50 - 136 Unit/L) 44 L Total Protein (6.4 - 8.2 G/DL) 5.5 L Albumin (3.4 - 5.0 G/DL) 3.3 L Globulin (GM/dL) 2.2 Albumin/Globulin Ratio (1.2 - 2.2 RATIO) 1.5 Laboratory Tests 01/05 0525 Hematology WBC (3.5 - 11.0 K/mm3) 3.9 RBC (4.70 - 6.10 M/mm3) 3.72 L Hgb (12.3 - 15.9 G/DL) 10.4 L Hct (35.8 - 46.7 %) 34.5 L MCV (86.3 - 98.9 Fl) 92.7 MCH (28.9 - 34.4 pg) 28.0 L MCHC (32.1 - 34.5 G/DL) 30.1 L RDW (11.5 - 14.5 SD) 15.3 H Plt Count (150 - 450 K/mm3) 156.0 MPV (7.0 - 9.6 fL) 10.50 H Neut % (Auto) (40 - 76 %) 56.1 Lymph % (Auto) (20.5 - 51.1 %) 32.5 Peach % (Auto) (1.7 - 9.3 %) 9.0 Eos % (Auto) (0.0 - 6.0 %) 2.1 Baso % (Auto) (0.0 - 2.0 %) 0.3 Neut # (Auto) (1.8 - 7.6 K/mm3) 2.18 Lymph # (Auto) (0.6 - 3.0 K/mm3) 1.3 Peach # (Auto) (0.2 - 1.5 K/mm3) 0.4 Eos # (Auto) (0.0 - 0.4 K/mm3) 0.1 Baso # (Auto) (0.0 - 0.2 K/mm3) 0.0 Add Manual Diff (CRITERIA DIFF/SCN) NO Radiology data: Recent Impressions: RADIOLOGY - XR ABDOMEN 1 V 01/05 0050 Report Impression - Status: SIGNED Entered: 01/06/2020 0133 Impression: Satisfactory nasogastric tube placement. Impression By: Abdi Ramirez Diagnosis, Assessment Plan Free Text DxA P Notes Free Text DxA P Notes: Impression 1. Small bowel obstruction 2. Abdominal pain - improved 3. History of colon resection with colostomy s/p reversal Plan 1. Continue NPO 2. NGT to LIS 3. Serial abdominal exams; KUB in the AM 4. General surgery evaluation pending 5. Monitor BMs 6. Continue IV abx Foster Judd 01/06/20 1711: Attestations Physician Attestation Agree w/findings plan: Agree with the findings and plan as documented b y [insert KAILYN name]; * my personal evaluation is moNITOR ABDOMINAL DISTENTION Serial imaging studies surgery evual d/w pt and nurse Dr Edwards will re-evulate in am [ ] Electronically Signed by Verona Frost PA-C on 12/22 01/10 at 1603 Electronically Signed by Foster Judd MD on at 1711 RPT #: [id number] END OF REPORT 2020-01-06 [facility] 15:40:00-00:00 [facility] ([facility]) GE Consultation Note REPORT#:[id number] REPORT STATUS: Signed DATE:01/06/20 TIME:1540 PATIENT: DORA MCNEILL UNIT #: [id number] ROOM/BED: [place] [id number] : 70 AGE: 49 SEX: M ATTEND: Lucia Perea MD ADM AUTHOR: Verona Frost PA-C * ALL edits or amendments must be made on the Style for Hire/computer document * Verona Frost 01/06/20 1540: History of Present Illness Chief complaint: abdominal pain HPI: Patient is a 49 year old mal e with past medical history of colon resection with colostomy s/p reversal who presented [facility] with complaints of LLQ. 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 Patient was admitted to our facility for SBO. NGT was inserted to [facility]. General surgery has been consulted. GI was consulted for evaluation. Upon examination today, patient was sleeping comfortably. He denied abdominal pain at this time. Also denied nausea and vomiting. He states his l ast bowel movement was yesterday. Patient is a fairly poor historian. History - Adult longitudinal Additional medical history: bowel obstrution Additional surgical history: bowel resection colsotomy reversal of colostomy Smoking status for patients 13 years old or olde r: Never Smoker Allergies: Coded Allergies: No Known Allergies (01/05/20) Review of Systems Free Text ROS Notes Free Text ROS Notes: 14 body systems reviewed and negative otherwise stated in HPI Objective Physical Exam VS/I O: Last Documented: Result Date Time Pulse Ox 98 01/05 151 B/P 117/75 01/05 151 B/P Mean 89.3 01/05 151 O2 Delivery Room air 01/05 1517 Temp 97.7 01/05 1517 Pulse 65 01/05 151 Resp 16 01/05 151 24 hour I O ending at 0700: 01/05 0700 01/04 1900 Intake Total 1125.00 Output Total 400 Balance 725.00 Intake, IV 1125.00 Number Voids 1 Output, Urine 400 Patient 150 lb Weight Weight Stated/Reported Measurement Method Patient Weight Weight (lb): 150 Weight (oz): 4.98 Weight (kg): 68.180 General appearance: sleeping comfortably, alert, awake, oriented, no acute distress HEENT: anicteric, atraumatic, normocephalic, NGT to LIS Neck: full range of motion, non-tender Cardiovascular: normal S1/S2, regular rate rhyth m Respiratory: clear to auscultation, equal breath sounds, symmetric expansion Abdomen: distended, non-tender, soft Extremities: moves all, normal range of motion Musculoskeletal: full range of motion Neuro/OCEANOLOGIST: alert, oriented X 3 Skin: dry, intact Psychiatry: normal affect, normal judgment/insig ht Results Findings/Data: Laboratory Tests 01/06/20 05: [Embedded Image Not Available] Laboratory Tests 01/05 525 Chemistry Sodium (134 - 147 mmol/L) 143 Potassium (3.4 - 5.0 mmol/L) 4.0 Chloride (100 - 108 mmol/L) 113 H Carbon Dioxide (21 - 32 mmol/L) 25 Anion Gap (4.0 - 15.0 GAP calc) 5.0 BUN (7 - 18 MG/DL) 22 H Creatinine (0.8 - 1.3 MG/DL) 1.0 Glomerular Filtr Rate (>60 estGFR) >=60 max est imate Glucose (70 - 110 MG/DL) 85 Calcium (8.5 - 10.1 MG/DL) 8.2 L Total Bilirubin (0.2 - 1.2 MG/DL) 0.70 AST (15 - 37 Unit/L) 15 ALT (12 - 78 Unit/L) 27 Total Alk Phosphatase (50 - 136 Unit/L) 44 L Total Protein (6.4 - 8.2 G/DL) 5.5 L Albumin (3.4 - 5.0 G/DL) 3.3 L Globulin (GM/dL) 2.2 Albumin/Globulin Ratio (1.2 - 2.2 RATIO) 1.5 Laboratory Tests 01/05 0525 Hematology WBC (3.5 - 11.0 K/mm3) 3.9 RBC (4.70 - 6.10 M/mm3) 3.72 L Hgb (12.3 - 15.9 G/DL) 10.4 L Hct (35.8 - 46.7 %) 34.5 L MCV (86.3 - 98.9 Fl) 92.7 MCH (28.9 - 34.4 pg) 28.0 L MCHC (32.1 - 34.5 G/DL) 30.1 L RDW (11.5 - 14.5 SD) 15.3 H Plt Count (150 - 450 K/mm3) 156.0 MPV (7.0 - 9.6 fL) 10.50 H Neut % (Auto) (40 - 76 %) 56.1 Lymph % (Auto) (20.5 - 51.1 %) 32.5 Peach % (Auto) (1.7 - 9.3 %) 9.0 Eos % (Auto) (0.0 - 6.0 %) 2.1 Baso % (Auto) (0.0 - 2.0 %) 0.3 Neut # (Auto) (1.8 - 7.6 K/mm3) 2.18 Lymph # (Auto) (0.6 - 3.0 K/mm3) 1.3 Peach # (Auto) (0.2 - 1.5 K/mm3) 0.4 Eos # (Auto) (0.0 - 0.4 K/mm3) 0.1 Baso # (Auto) (0.0 - 0.2 K/mm3) 0.0 Add Manual Diff (CRITERIA DIFF/SCN) NO Radiology data: Recent Impressions: RADIOLOGY - XR ABDOMEN 1 V 01/05 0050 Report Impression - Status: SIGNED Entered: 01/06/2020 0133 Impression: Satisfactory nasogastric tube placement. Impression By: Abdi Ramriez Diagnosis, Assessment Plan Free Text DxA P Notes Free Text DxA P Notes: Impression 1. Small bowel obstruction 2. Abdominal pain - improved 3. History of colon resection with colostomy s/p reversal Plan 1. Continue NPO 2. NGT to LIS 3. Serial abdominal exams; KUB in the AM 4. General surgery evaluation pending 5. Monitor BMs 6. Continue IV abx Foster Judd 01/06/20 1711: Attestations Physician Attestation Agree w/findings plan: Agree with the findings and plan as documented b y [insert KAILYN name]; * my personal evaluation is moNITOR ABDOMINAL DISTENTION Serial imaging studies surgery evual d/w pt and nurse Dr Edwards will re-evulate in am [ ] Electronically Signed by Verona Frost PA-C on 12/22 01/10 at 1603 Electronically Signed by Foster Judd MD on at 1711 RPT #: [id number] END OF REPORT 2020-01-06 [facility] 15:40:00-00:00 [facility] ([facility]) GE Consultation Note REPORT#:[id number] REPORT STATUS: Signed DATE:01/06/20 TIME:1539 PATIENT: DORA MCNEILL UNIT #: [id number] ROOM/BED: [place] [id number] : 70 AGE: 49 SEX: M ATTEND: Lucia Perea MD ADM AUTHOR: Verona Frost PA-C * ALL edits or amendments must be made on the [employer]/computer document * Verona Frost 01/06/20 1540: History of Present Illness Chief complaint: abdominal pain HPI: Patient is a 49 year old mal e with past medical history of colon resection with colostomy s/p reversal who presented [facility] with complaints of LLQ. 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 Patient was admitted to our facility for SBO. NGT was inserted to [facility]. General surgery has been consulted. GI was consulted for evaluation. Upon examination today, patient was sleeping comfortably. He denied abdominal pain at this time. Also denied nausea and vomiting. He states his l ast bowel movement was yesterday. Patient is a fairly poor historian. History - Adult longitudinal Additional medical history: bowel obstrution Additional surgical history: bowel resection colsotomy reversal of colostomy Smoking status for patients 13 years old or olde r: Never Smoker Allergies: Coded Allergies: No Known Allergies (01/05/20) Review of Systems Free Text ROS Notes Free Text ROS Notes: 14 body systems reviewed and negative otherwise stated in HPI Objective Physical Exam VS/I O: Last Documented: Result Date Time Pulse Ox 98 01/05 151 B/P 117/75 01/05 151 B/P Mean 89.3 01/05 151 O2 Delivery Room air 01/05 1517 Temp 97.7 01/05 151 Pulse 65 01/05 151 Resp 16 01/05 151 24 hour I O ending at 0700: 01/05 0700 01/04 1900 Intake Total 1125.00 Output Total 400 Balance 725.00 Intake, IV 1125.00 Number Voids 1 Output, Urine 400 Patient 150 lb Weight Weight Stated/Reported Measurement Method Patient Weight Weight (lb): 150 Weight (oz): 4.98 Weight (kg): 68.180 General appearance: sleeping comfortably, alert, awake, oriented, no acute distress HEENT: anicteric, atraumatic, normocephalic, NGT to LIS Neck: full range of motion, non-tender Cardiovascular: normal S1/S2, regular rate rhyth m Respiratory: clear to auscultation, equal breath sounds, symmetric expansion Abdomen: distended, non-tender, soft Extremities: moves all, normal range of motion Musculoskeletal: full range of motion Neuro/OCEANOLOGIST: alert, oriented X 3 Skin: dry, intact Psychiatry: normal affect, normal judgment/insig ht Results Findings/Data: Laboratory Tests 01/06/20524: [Embedded Image Not Available] Laboratory Tests 01/05 525 Chemistry Sodium (134 - 147 mmol/L) 143 Potassium (3.4 - 5.0 mmol/L) 4.0 Chloride (100 - 108 mmol/L) 113 H Carbon Dioxide (21 - 32 mmol/L) 25 Anion Gap (4.0 - 15.0 GAP calc) 5.0 BUN (7 - 18 MG/DL) 22 H Creatinine (0.8 - 1.3 MG/DL) 1.0 Glomerular Filtr Rate (>60 estGFR) >=60 max est imate Glucose (70 - 110 MG/DL) 85 Calcium (8.5 - 10.1 MG/DL) 8.2 L Total Bilirubin (0.2 - 1.2 MG/DL) 0.70 AST (15 - 37 Unit/L) 15 ALT (12 - 78 Unit/L) 27 Total Alk Phosphatase (50 - 136 Unit/L) 44 L Total Protein (6.4 - 8.2 G/DL) 5.5 L Albumin (3.4 - 5.0 G/DL) 3.3 L Globulin (GM/dL) 2.2 Albumin/Globulin Ratio (1.2 - 2.2 RATIO) 1.5 Laboratory Tests 01/05 0525 Hematology WBC (3.5 - 11.0 K/mm3) 3.9 RBC (4.70 - 6.10 M/mm3) 3.72 L Hgb (12.3 - 15.9 G/DL) 10.4 L Hct (35.8 - 46.7 %) 34.5 L MCV (86.3 - 98.9 Fl) 92.7 MCH (28.9 - 34.4 pg) 28.0 L MCHC (32.1 - 34.5 G/DL) 30.1 L RDW (11.5 - 14.5 SD) 15.3 H Plt Count (150 - 450 K/mm3) 156.0 MPV (7.0 - 9.6 fL) 10.50 H Neut % (Auto) (40 - 76 %) 56.1 Lymph % (Auto) (20.5 - 51.1 %) 32.5 Peach % (Auto) (1.7 - 9.3 %) 9.0 Eos % (Auto) (0.0 - 6.0 %) 2.1 Baso % (Auto) (0.0 - 2.0 %) 0.3 Neut # (Auto) (1.8 - 7.6 K/mm3) 2.18 Lymph # (Auto) (0.6 - 3.0 K/mm3) 1.3 Peach # (Auto) (0.2 - 1.5 K/mm3) 0.4 Eos # (Auto) (0.0 - 0.4 K/mm3) 0.1 Baso # (Auto) (0.0 - 0.2 K/mm3) 0.0 Add Manual Diff (CRITERIA DIFF/SCN) NO Radiology data: Recent Impressions: RADIOLOGY - XR ABDOMEN 1 V 01/05 0050 Report Impression - Status: SIGNED Entered: 01/06/2020 0133 Impression: Satisfactory nasogastric tube placement. Impression By: Abdi Ramirez Diagnosis, Assessment Plan Free Text DxA P Notes Free Text DxA P Notes: Impression 1. Small bowel obstruction 2. Abdominal pain - improved 3. History of colon resection with colostomy s/p reversal Plan 1. Continue NPO 2. NGT to LIS 3. Serial abdominal exams; KUB in the AM 4. General surgery evaluation pending 5. Monitor BMs 6. Continue IV abx Foster Judd 01/06/20 1711: Attestations Physician Attestation Agree w/findings plan: Agree with the findings and plan as documented b y [insert KAILYN name]; * my personal evaluation is moNITOR ABDOMINAL DISTENTION Serial imaging studies surgery evual d/w pt and nurse Dr Edwards will re-evulate in am [ ] Electronically Signed by Verona Frost PA-C on 12/22 01/10 at 1603 Electronically Signed by Foster Judd MD on at 1711 RPT #: [id number] END OF REPORT 2020-01-06 [facility] 15:40:00-00:00 [facility] ([facility]) GE Consultation Note REPORT#:[id number] REPORT STATUS: Signed DATE:01/06/20 TIME:1540 PATIENT: DORA MCNEILL UNIT #: [id number] ROOM/BED: [place] [id number] : 70 AGE: 49 SEX: M ATTEND: Lucia Perea MD ADM AUTHOR: Verona Frost PA-C * ALL edits or amendments must be made on the el [employer]/computer document * Verona Frost 01/06/20 1540: History of Present Illness Chief complaint: abdominal pain HPI: Patient is a 49 year old mal e with past medical history of colon resection with colostomy s/p reversal who presented to the [facility] with complaints of LLQ. 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 Patient was admitted to our facility for SBO. NGT was inserted to [facility]. General surgery has been consulted. GI was consulted for evaluation. Upon examination today, patient was sleeping comfortably. He denied abdominal pain at this time. Also denied nausea and vomiting. He states his l ast bowel movement was yesterday. Patient is a fairly poor historian. History - Adult longitudinal Additional medical history: bowel obstrution Additional surgical history: bowel resection colsotomy reversal of colostomy Smoking status for patients 13 years old or olde r: Never Smoker Allergies: Coded Allergies: No Known Allergies (01/05/20) Review of Systems Free Text ROS Notes Free Text ROS Notes: 14 body systems reviewed and negative otherwise stated in HPI Objective Physical Exam VS/I O: Last Documented: Result Date Time Pulse Ox 98 01/05 1517 B/P 117/75 01/05 1517 B/P Mean 89.3 01/05 1517 O2 Delivery Room air 01/05 1517 Temp 97.7 01/05 1517 Pulse 65 01/05 1517 Resp 16 01/05 1517 24 hour I O ending at 0700: 01/05 0700 01/04 1900 Intake Total 1125.00 Output Total 400 Balance 725.00 Intake, IV 1125.00 Number Voids 1 Output, Urine 400 Patient 150 lb Weight Weight Stated/Reported Measurement Method Patient Weight Weight (lb): 150 Weight (oz): 4.98 Weight (kg): 68.180 General appearance: sleeping comfortably, alert, awake, oriented, no acute distress HEENT: anicteric, atraumatic, normocephalic, NGT to LIS Neck: full range of motion, non-tender Cardiovascular: normal S1/S2, regular rate rhyth m Respiratory: clear to auscultation, equal breath sounds, symmetric expansion Abdomen: distended, non-tender, soft Extremities: moves all, normal range of motion Musculoskeletal: full range of motion Neuro/OCEANOLOGIST: alert, oriented X 3 Skin: dry, intact Psychiatry: normal affect, normal judgment/insig ht Results Findings/Data: Laboratory Tests 01/06/20524: [Embedded Image Not Available] Laboratory Tests 01/05 525 Chemistry Sodium (134 - 147 mmol/L) 143 Potassium (3.4 - 5.0 mmol/L) 4.0 Chloride (100 - 108 mmol/L) 113 H Carbon Dioxide (21 - 32 mmol/L) 25 Anion Gap (4.0 - 15.0 GAP calc) 5.0 BUN (7 - 18 MG/DL) 22 H Creatinine (0.8 - 1.3 MG/DL) 1.0 Glomerular Filtr Rate (>60 estGFR) >=60 max est imate Glucose (70 - 110 MG/DL) 85 Calcium (8.5 - 10.1 MG/DL) 8.2 L Total Bilirubin (0.2 - 1.2 MG/DL) 0.70 AST (15 - 37 Unit/L) 15 ALT (12 - 78 Unit/L) 27 Total Alk Phosphatase (50 - 136 Unit/L) 44 L Total Protein (6.4 - 8.2 G/DL) 5.5 L Albumin (3.4 - 5.0 G/DL) 3.3 L Globulin (GM/dL) 2.2 Albumin/Globulin Ratio (1.2 - 2.2 RATIO) 1.5 Laboratory Tests 01/05 525 Hematology WBC (3.5 - 11.0 K/mm3) 3.9 RBC (4.70 - 6.10 M/mm3) 3.72 L Hgb (12.3 - 15.9 G/DL) 10.4 L Hct (35.8 - 46.7 %) 34.5 L MCV (86.3 - 98.9 Fl) 92.7 MCH (28.9 - 34.4 pg) 28.0 L MCHC (32.1 - 34.5 G/DL) 30.1 L RDW (11.5 - 14.5 SD) 15.3 H Plt Count (150 - 450 K/mm3) 156.0 MPV (7.0 - 9.6 fL) 10.50 H Neut % (Auto) (40 - 76 %) 56.1 Lymph % (Auto) (20.5 - 51.1 %) 32.5 Peach % (Auto) (1.7 - 9.3 %) 9.0 Eos % (Auto) (0.0 - 6.0 %) 2.1 Baso % (Auto) (0.0 - 2.0 %) 0.3 Neut # (Auto) (1.8 - 7.6 K/mm3) 2.18 Lymph # (Auto) (0.6 - 3.0 K/mm3) 1.3 Peach # (Auto) (0.2 - 1.5 K/mm3) 0.4 Eos # (Auto) (0.0 - 0.4 K/mm3) 0.1 Baso # (Auto) (0.0 - 0.2 K/mm3) 0.0 Add Manual Diff (CRITERIA DIFF/SCN) NO Radiology data: Recent Impressions: RADIOLOGY - XR ABDOMEN 1 V 01/050 Report Impression - Status: SIGNED Entered: 01/06/2020 0133 Impression: Satisfactory nasogastric tube placement. Impression By: Abdi Ramirez Diagnosis, Assessment Plan Free Text DxA P Notes Free Text DxA P Notes: Impression 1. Small bowel obstruction 2. Abdominal pain - improved 3. History of colon resection with colostomy s/p reversal Plan 1. Continue NPO 2. NGT to LIS 3. Serial abdominal exams; KUB in the AM 4. General surgery evaluation pending 5. Monitor BMs 6. Continue IV abx Foster Judd 01/06/20 1711: Attestations Physician Attestation Agree w/findings plan: Agree with the findings and plan as documented b y [insert KAILYN name]; * my personal evaluation is moNITOR ABDOMINAL DISTENTION Serial imaging studies surgery evual d/w pt and nurse Dr Edwards will re-evulate in am [ ] Electronically Signed by Verona Frost PA-C on 12/22 01/10 at 1603 Electronically Signed by Foster Judd MD on at 1711 RPT #: [id number] END OF REPORT 2020-01-06 [id number] [facility] 11:55:00-00:00 [facility] [id number] [place] [id number] PATIENT NAME: DORA MCNEILL ADMIT DATE: ACCOUNT NO: [id number] ROOM NO: L.PO8 AGE: 49 REPORT TYPE: CONSULTATION SEX: M ADMITTING PHYSICIAN: Mark Perea MD ATTENDING PHYSICIAN: Mark Perea MD CONSULTATION DATE:01/06/20 CONSULTING PHYSICIAN: Stephanie Conrad MD This is a 49 y/o man transferred from an outside ER yesterday secondary to abdominal pain and distension. He has a history of "colon resection" and ostomy reversal although he doesn't know exactly why. The patient had a CT which shows the transverse colon measuring up to 10.5 cm which was unchanged from a previous CT done in March 2019. There wa s stool in the left colon and rectum and no small bowel dilation was noted. It was noted that there was a significant distention of the stomach, likely se condary to the transverse colon causing outlet obstruction. An NG tube was placed overnight with minimal output. The patient states that his pain is mini mal at this time; however, he has not passed any more gas or had another bowel movement. He is not clear on why he had the colon resection. PAST MEDICAL HISTORY: None. PAST SURGICAL HISTORY: Colon resection or bowel resection. It is unclear at this time as we do not have the records. MEDICATIONS: Please see med list. ALLERGIES: NO KNOWN DRUG ALLERGIES. SOCIAL HISTORY: The patient is homeless. Denies tobacco use. FAMILY HISTORY: Noncontributory. REVIEW OF SYSTEMS: As per HPI. Twelve-point revi ew of systems is otherwise negative. PHYSICAL EXAMINATION: VITAL SIGNS: Temp 97.7, pulse 61, respirations 1 6, blood pressure 110/74. GENERAL: The patient is awake, alert, in no appa rent distress. HEENT: Normocephalic and atraumatic. Normal scle haily. NG tube in place. CHEST: Symmetric chest wall movement bilaterally . ABDOMEN: Moderate distention. Soft. Nontender. N o rebound or guarding. Well-healed midline laparotomy scar and well-hea led ostomy site scar on the right side. EXTREMITIES: No clubbing, cyanosis, or edema. PATIENT NAME: DORA MCNEILL ACCOUNT #: [id number] LABORATORY DATA: White count 3.9, hemoglobin 10. 4, hematocrit 34.5, platelets 156. Electrolytes are within normal limits. Crea tinine is 1 down from 1.49, calcium 8.2. LFTs are within normal limits. 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 CT scan shows the patient's right colon is dilat ed as well with significant stool and there is marked dilation of the transv erse colon. There is significant stool in the left colon and rectum a s well and there is no evidence of mechanical obstruction. 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 Recommen ded GI consult for medical management with possible neostygmine. NG output is minimal; however, we will leave it in place until the patient star ts having bowel function as it appears that his colon was causing gastric outlet obstru ction. There is no indication for surgical intervention at this time. Dictated By: Stephanie Conrad MD WT: CON:L.FAVIAN/YA/LUIS Conf#: [id number]#: [id number] Authenticated and Edited by Stephanie ospina MD On 01/12/20 10:06:42 AM at 1009 PATIENT NAME: DORA MCNEILL ACCOUNT #: [id number] 2020-01-06 [facility] 09:10:00-00:00 [facility] ([facility] Hospitalist Progress Note REPORT#:[id number] REPORT STATUS: Signed DATE:01/06/20 TIME:909 PATIENT: DORA MCNEILL UNIT #: [id number] ROOM/BED: [place] [address] : 70 AGE: 49 SEX: M ATTEND: Lucia Perea MD ADM AUTHOR: Leonidas Robertson MD * ALL edits or amendments must be made on the el [employer]/computer document * Subjective Chief Complaint: Abdominal pain and distention Comments: Patient lying on the bed still distended pain is slightly better. Got worse in the past few days. Had some obstruction 3 to 4 y ears ago and had colostomy at [facility]. Then it was reverted back at [facility] 1 year ago. 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 Have req uested GI ouside records: 01/04 creat:1.49 ctabd/pelvis: pedro transverse colon with secondary gastric out let obstruction due to mass effect by dialted colon, whirling of mesenteric vasculature in right lowe r quadrant Objective General VS/I O: Vital Signs: Date Time Temp Pulse Resp B/P B/P Pulse O2 O2 F low FiO2 Mean Ox Delivery Rate 01/05 1122 36.5 61 16 110/74 86.2 97 Room air 01/05 0835 36.6 62 16 104/68 80.2 98 Room air 01/05 0423 36.8 78 18 133/83 99.8 97 Room air 01/05 0019 36.6 62 18 113/73 86.3 97 Room air 01/04 2131 36.7 73 18 117/75 89.1 97 Room air 24 hour I O ending at 0700: 01/05 0700 01/04 1900 Intake Total 1125.00 Output Total 400 Balance 725.00 Intake, IV 1125.00 Number Voids 1 Output, Urine 400 Patient 68.18 kg Weight Weight Stated/Reported Measurement Method Patient Weight Weight (lb): 150 Weight (oz): 4.98 Weight (kg): 68.180 Medications: Active Meds + DC'd Last 24 Hrs Famotidine 20 MG BID IV (CKD) Enoxaparin Sodium 40 MG Q24H SUBQ Famotidine 20 MG DAILY IV (DC) Morphine Sulfate 2 MG Q4H PRN PRN IV Morphine Sulfate 3 MG Q4H PRN PRN IV Ondansetron HCl 4 MG Q4H PRN PRN IV Sodium Chloride 1,000 ML .Q8H IV Physical Exam General appearance: alert, awake, oriented, plea jr, conversational Head/Eyes: atraumatic, EOMI, normocephalic ENT: NGT, moist mucosal membranes, normal nose Neck: full range of motion, non-tender, supple/n o meningismus Cardiovascular: normal capillary refill, normal heart sounds, regular rate rhythm Respiratory: aerating well, clear to auscultatio n, symmetric expansion, no distress Abdomen: distended, tenderness, sluggish bowel s ounds Extremities: moves all, normal range of motion, no edema Musculoskeletal: normal insp ection, painless range of motion, straight leg raise neg Neuro/OCEANOLOGIST: alert, oriented X 3, no motor deficit s, no sensory deficits Skin: dry Psychiatry: normal affect, n ormal judgment/insight, normal mood, not homicidal, not suicidal, no hallucinations Results Findings/Data: Laboratory Tests 01/05 525 Chemistry Sodium (134 - 147 mmol/L) 143 Potassium (3.4 - 5.0 mmol/L) 4.0 Chloride (100 - 108 mmol/L) 113 H Carbon Dioxide (21 - 32 mmol/L) 25 Anion Gap (4.0 - 15.0 GAP calc) 5.0 BUN (7 - 18 MG/DL) 22 H Creatinine (0.8 - 1.3 MG/DL) 1.0 Glomerular Filtr Rate (>60 estGFR) >=60 max est imate Glucose (70 - 110 MG/DL) 85 Calcium (8.5 - 10.1 MG/DL) 8.2 L Total Bilirubin (0.2 - 1.2 MG/DL) 0.70 AST (15 - 37 Unit/L) 15 ALT (12 - 78 Unit/L) 27 Total Alk Phosphatase (50 - 136 Unit/L) 44 L Total Protein (6.4 - 8.2 G/DL) 5.5 L Albumin (3.4 - 5.0 G/DL) 3.3 L Globulin (GM/dL) 2.2 Albumin/Globulin Ratio (1.2 - 2.2 RATIO) 1.5 Laboratory Tests 01/05 525 Hematology WBC (3.5 - 11.0 K/mm3) 3.9 RBC (4.70 - 6.10 M/mm3) 3.72 L Hgb (12.3 - 15.9 G/DL) 10.4 L Hct (35.8 - 46.7 %) 34.5 L MCV (86.3 - 98.9 Fl) 92.7 MCH (28.9 - 34.4 pg) 28.0 L MCHC (32.1 - 34.5 G/DL) 30.1 L RDW (11.5 - 14.5 SD) 15.3 H Plt Count (150 - 450 K/mm3) 156.0 MPV (7.0 - 9.6 fL) 10.50 H Neut % (Auto) (40 - 76 %) 56.1 Lymph % (Auto) (20.5 - 51.1 %) 32.5 Peach % (Auto) (1.7 - 9.3 %) 9.0 Eos % (Auto) (0.0 - 6.0 %) 2.1 Baso % (Auto) (0.0 - 2.0 %) 0.3 Neut # (Auto) (1.8 - 7.6 K/mm3) 2.18 Lymph # (Auto) (0.6 - 3.0 K/mm3) 1.3 Peach # (Auto) (0.2 - 1.5 K/mm3) 0.4 Eos # (Auto) (0.0 - 0.4 K/mm3) 0.1 Baso # (Auto) (0.0 - 0.2 K/mm3) 0.0 Add Manual Diff (CRITERIA DIFF/SCN) NO Radiology data: Recent Impressions: RADIOLOGY - XR ABDOMEN 1 V 01/05 50 Report Impression - Status: SIGNED Entered: 01/06/2020 0133 Impression: Satisfactory nasogastric tube placement. Impression By: Herrera - Abdi Olmedo Results: labs reviewed, current med profile rev' d Diagnosis, Assessment Plan Consultants: gastroenterology, surgery Plan discussed with: patient, nurse, interdisc c are team Free Text DxA P Notes Free text DxA P notes: 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 Patient with complicated prior surgical history with colostomy and status post reversal all at different facilities. We are try ing to get the records. Does not appear to be true mechanical obstructio n and just related to the dilation of the transverse colon putting pressur e on gastric outlet. Surgery is on board and have recommended GI to b e involved as well as patient might need decompression of transverse colon or might need neostigmine. NPO IV fliuds NGTube to LWIS IV Pain medication propyalxis GI/DVT (Pepcid/SCD0 Electronically Signed by Leonidas Robertson MD on 0 01/06/20 at 1327 RPT #: [id number] END OF REPORT 2020-01-05 [facility] 22:24:00-00:00 [facility] ([facility]) Hospitalist History Physical REPORT#:[id number] REPORT STATUS: Signed DATE:01/05/20 TIME:2223 PATIENT: DORA MCNEILL UNIT #: [id number] ROOM/BED: [place] [id number] : 70 AGE: 49 SEX: M ATTEND: Lucia Perea MD ADM AUTHOR: Ted Coleman [employer] * ALL edits or amendments must be made on the [employer] document * History of Present Illness HPI Chief complaint: LLQ abd pain since this morning PCP: PCP: No Primary or Family Physician HPI: 49 y/o male with PMHx of colon resection, colost om with reversal of colostomy comes in with LLQ pain started earlier today. pt denies fever, no n/v/d. pt reported his abd is normally not this di stended. reported pain 4/10 on numeric pain scale. Informant/historian: patient Free Text HPI Notes Free Text HPI Notes: [facility] diagnostics NA 145 K 4.1 CO2 30 Glu 82 bun 26/creat 1.49 mariusz 8.5 bili total 0.5 alk phos 60 ast 18/alt 33 wbc 4.5 hgb 10.7 hct 32.3 plt 163 ua negative History Additional medical history: bowel obstrution Additional surgical history: bowel resection colsotomy reversal of colostomy Smoking status for patients 13 years old or olde r: Never Smoker Medication/Allergy-Vaccine Hx Home Medications: No Known Home Medications Allergies: Coded Allergies: No Known Allergies (01/05/20) Objective General VS/I O: Vital Signs: Date Time Temp Pulse Resp B/P B/P Pulse O2 O2 F low FiO2 Mean Ox Delivery Rate 01/041 98.1 73 18 117/75 89.1 97 Room air Patient Weight Weight (lb): 150 Weight (oz): 4.98 Weight (kg): 68.180 Medications: Active Meds + DC'd Last 24 Hrs Morphine Sulfate 2 MG Q4H PRN PRN IV Morphine Sulfate 3 MG Q4H PRN PRN IV Ondansetron HCl 4 MG Q4H PRN PRN IV Sodium Chloride 1,000 ML .Q8H IV Physical Exam General appearance: alert, awake, orient ed, pleasant, mental status normal, no respiratory distress Head/Eyes: atraumatic, EOMI, normocephalic ENT: moist mucosal membranes, normal nose Neck: full range of motion, non-tender, supple/n o meningismus Cardiovascular: normal capillary refill, normal heart sounds, regular rate rhythm Respiratory: aerating well, clear to auscultatio n, symmetric expansion, no distress Abdomen: distended, guarding, tenderness Extremities: moves all, normal range of motion, no edema Musculoskeletal: normal insp ection, painless range of motion, straight leg raise neg Neuro/OCEANOLOGIST: alert, oriented X 3, no motor deficit s, no sensory deficits Rustam Coma Score: Rustam Coma Score: Response Value Rustam eyes: eyes open spontaneously 4 Vanderwagen speech: oriented 5 Rustam motor: obeys commands 6 Total 15 Skin: dry Psychiatry: normal affect, n ormal judgment/insight, normal mood, not homicidal, not suicidal, no hallucinations Diagnosis, Assessment Plan Problem List/A P: 1. SBO (small bowel obstruction) 2. Abdominal pain Consultants: surgery Code status: full code Plan discussed with: patient, nurse Free Text DxA P Notes Free text DxA P notes: 1. SBO (small bowel obstruction) 2. Abdominal pain plan NPO IV fliuds surgical consult ([place]) NGTube to LWIS will get KUB to check placement IV Pain medication propyalxis GI/DVT (Pepcid/SCD0 Quality Current Medications Current medication review: I attest that the foregoing medication list in [facility] medical record is true, accurate, and complete to the best of my knowled ge. Unable to obtain: Unable to obtain an accurate home medica tion list at this time. The patient is in an urgent or emergent medical situation where time is of the essence. To delay treatment would jeopardize the pat ient's health status on the day of the encounter. VTE Prophylaxis VTE prophylaxis initiated: yes BMI Screening > 25 or < 18.5 Patient's BMI: Current BMI: 19.8 BMI status/follow-up: nml BMI,no family counselor needed HTN Screening/Follow-up Last documented vitals: Last Documented: Result Date Time Pulse Ox 97 01/05 19 B/P 113/73 01/05 19 B/P Mean 86.3 01/05 19 O2 Delivery Room air 01/05 19 Temp 97.9 01/05 19 Pulse 62 01/05 19 Resp 18 01/05 19 B/P assess/follow-up: pre-existing hx of HTN Blood pressure ranges/guide: Screening for Hypertension and follow up measure #317 Blood pressure parameters Normal B/P SBP </= 119 DBP </= 79 Pre-hypertensive SBP 120-139 DBP 80-89 Hypertensive SBP >/= 140 DBP >/= 90 at 0027 RPT #: [id number] END OF REPORT 2020-01-05 [facility] 22:24:00-00:00 [facility] ([facility]) Hospitalist History Physical REPORT#:[id number] REPORT STATUS: Signed DATE:01/05/20 TIME:2223 PATIENT: DORA MCNEILL UNIT #: [id number] ROOM/BED: [place] [id number] : [birth year] AGE: 49 SEX: M ATTEND: Lucia Perea MD ADM AUTHOR: Ted Coleman NP * ALL edits or amendments must be made on the [employer]/computer document * Ted Coleman NP 01/05/202223: History of Present Illness HPI Chief complaint: LLQ abd pain since this morning PCP: PCP: No Primary or Family Physician HPI: 49 y/o male with PMHx of colon resection, colost om with reversal of colostomy comes in with LLQ pain started earlier today. pt denies fever, no n/v/d. pt reported his abd is normally not this di stended. reported pain 4/10 on numeric pain scale. Informant/historian: patient Free Text HPI Notes Free Text HPI Notes: [facility] diagnostics NA 145 K 4.1 CO2 30 Glu 82 bun 26/creat 1.49 mariusz 8.5 bili total 0.5 alk phos 60 ast 18/alt 33 wbc 4.5 hgb 10.7 hct 32.3 plt 163 ua negative History Additional medical history: bowel obstrution Additional surgical history: bowel resection colsotomy reversal of colostomy Smoking status for patients 13 years old or olde r: Never Smoker Medication/Allergy-Vaccine Hx Home Medications: No Known Home Medications Allergies: Coded Allergies: No Known Allergies (01/05/20) Objective General VS/I O: Vital Signs: Date Time Temp Pulse Resp B/P B/P Pulse O2 O2 F low FiO2 Mean Ox Delivery Rate 01/04 2131 98.1 73 18 117/75 89.1 97 Room air Patient Weight Weight (lb): 150 Weight (oz): 4.98 Weight (kg): 68.180 Medications: Active Meds + DC'd Last 24 Hrs Morphine Sulfate 2 MG Q4H PRN PRN IV Morphine Sulfate 3 MG Q4H PRN PRN IV Ondansetron HCl 4 MG Q4H PRN PRN IV Sodium Chloride 1,000 ML .Q8H IV Physical Exam General appearance: alert, awake, orient ed, pleasant, mental status normal, no respiratory distress Head/Eyes: atraumatic, EOMI, normocephalic ENT: moist mucosal membranes, normal nose Neck: full range of motion, non-tender, supple/n o meningismus Cardiovascular: normal capillary refill, normal heart sounds, regular rate rhythm Respiratory: aerating well, clear to auscultatio n, symmetric expansion, no distress Abdomen: distended, guarding, tenderness Extremities: moves all, normal range of motion, no edema Musculoskeletal: normal insp ection, painless range of motion, straight leg raise neg Neuro/OCEANOLOGIST: alert, oriented X 3, no motor deficit s, no sensory deficits Rustam Coma Score: Rustam Coma Score: Response Value Vanderwagen eyes: eyes open spontaneously 4 Vanderwagen speech: oriented 5 Rustam motor: obeys commands 6 Total 15 Skin: dry Psychiatry: normal affect, n ormal judgment/insight, normal mood, not homicidal, not suicidal, no hallucinations Diagnosis, Assessment Plan Problem List/A P: 1. SBO (small bowel obstruction) 2. Abdominal pain Consultants: surgery Code status: full code Plan discussed with: patient, nurse Free Text DxA P Notes Free text DxA P notes: 1. SBO (small bowel obstruction) 2. Abdominal pain plan NPO IV fliuds surgical consult ([place]) NGTube to LWIS will get KUB to check placement IV Pain medication propyalxis GI/DVT (Pepcid/SCD0 Quality Current Medications Current medication review: I attest that the foregoing medication list in t he medical record is true, accurate, and complete to the best of my knowled ge. Unable to obtain: Unable to obtain an accurate home medica tion list at this time. The patient is in an urgent or emergent medical situation where time is of the essence. To delay treatment would jeopardize the pat ient's health status on the day of the encounter. VTE Prophylaxis VTE prophylaxis initiated: yes BMI Screening > 25 or < 18.5 Patient's BMI: Current BMI: 19.8 BMI status/follow-up: nml BMI,no family counselor needed HTN Screening/Follow-up Last documented vitals: Last Documented: Result Date Time Pulse Ox 97 01/05 0019 B/P 113/73 01/05 0019 B/P Mean 86.3 01/05 0019 O2 Delivery Room air 01/05 0019 Temp 97.9 01/05 0019 Pulse 62 01/05 0019 Resp 18 01/05 0019 B/P assess/follow-up: pre-existing hx of HTN Blood pressure ranges/guide: Screening for Hypertension and follow up measure #317 Blood pressure parameters Normal B/P SBP </= 119 DBP </= 79 Pre-hypertensive SBP 120-139 DBP 80-89 Hypertensive SBP >/= 140 DBP >/= 90 at 0027 at 1554 RPT #: [id number] END OF REPORT 2019-12-13 [facility] 20:57:00-00:00 [facility] ([facility]) EMERGENCY PROVIDER REPORT REPORT#:[id number] REPORT STATUS: Signed DATE:12/13/19 TIME: 2056 PATIENT: DORA MCNEILL UNIT #: [id number] ROOM/BED: AGE: 49 SEX: M PCP PHYS: No Primary or Family P hysician SERVICE AUTHOR: Juan Jose Avendaño MD * ALL edits or amendments must be made on the [employer]/computer document * HPI-Abd Pain M 40 and Over General Initial Greet Date/Time 12/13/19 181 Presentation Chief Complaint Abdominal pain Hx Obtained From Patient Sudden in Onset? No Onset Occurred Today Symptom Duration Brief Progression since Onset Constant Caused by No trauma by history Severity: Onset Moderate Severity: Current Mild Associated with Denies: Anorexia, Chest pain, Chills, Constipati on, Dysuria, Hematemesis. Exacerbated by Nothing Relieved by Nothing Risk-Abd Pain M 40 and Over )( Abdominal Aortic Aneurysm Risk factors review ed Review of Systems ROS Statements All systems rev neg except as marked. Basic Review of Systems Basic ROS EYES: No redness, ENT: No sore throat, HEM: No bleeding/bruising, SKIN : No rash, NEURO: No change MS, NEURO: No focal deficit, PSYCH: NL thought content Past Medical History - Adult Stated Complaint WEAKNESS, ABDOMINAL PAIN Allergies Coded Allergies: No Known Allergies (02/27/13) Home Medications Reported Medications No Known Home Medications Discontinued Reported Medications ZIPRASIDONE (GEODON) 40 MG PO TID BISACODYL DR (BISAC-EVAC EC) 5 MG PO DAILY PRN SERTRALINE (ZOLOFT) 150 MG PO DAILY DOCUSATE SODIUM (COLACE) 100 MG PO BID Smoking status for patients 13 years old or olde r: Former Smoker Physical Exam Vital Signs Vital Signs First Documented: Result Date Time Pulse Ox 98 12/12 175 B/P 114/78 12/12 175 B/P Mean 90 12/12 175 O2 Delivery Room air 12/12 1752 Temp 37.0 12/12 1752 Pulse 74 12/12 175 Resp 20 12/12 175 Last Documented: Result Date Time Pulse Ox 100 12/128 B/P 143/85 12/12 2217 B/P Mean 104 12/12 2217 Temp 36.6 12/12 2217 Pulse 114 12/128 Resp 24 12/12 2217 O2 Delivery Room air 12/12 175 Review of Vital Signs Reviewed Basic Physical Exam Basic PE HEAD: Atraumatic/NC, EYES: PERRL, conj clear, ENT: Membranes moist, NECK: Supple, EXT: No gross abnormality, SKIN: No rashes, warm/dry, NEURO: alert oriented, NEURO: gross movement NL, PSYCH: NL t hought content Focused PE General/Const General/Const Awake, Alert MS Head Head Atraumatic, Normocephalic Resp/Chest Respiratory/Chest Atraumatic, Breath sounds NL Cardiovascular Cardiovascular Heart rate NL, Regular rhythm, H eart sounds NL, No gallop, No murmurs, No rubs, Cap refill not delayed, Periph eral circulation NL, Pulses = bilaterally, No gross BP differential Abdomen/GI Abdomen/GI Atraumatic, Soft, Non-tender Bowel Sounds/Distention Distention moderate. Neurologic Neurologic Oriented X3, Speech NL, No m otor deficits, No sensory deficits, CN II - XII intact, Reflexes equal bilat, Cerebella r NL, Memory NL, Gait NL Interpretation Diagnostics Lab Results Interpretation Results Laboratory Tests 12/13/191819: [Embedded Image Not Available] Laboratory Tests: 12/13 1819 Chemistry Sodium (134.0 - 147.0 mmol/l) 142 Potassium (3.6 - 5.2 mmol/L) 4.0 Chloride (98.0 - 107.0 mmol/l) 106 Carbon Dioxide (21.0 - 33.0 mmol/l) 26.6 Anion Gap (0 - 20) 13.4 BUN (7.0 - 18.0 mg/dl) 24 H Creatinine (0.60 - 1.30 mg/dL) 1.21 Est GFR ( Amer) (115 - 127 mL/min) 82 L Est GFR (Non-Af Amer) (95 - 105 mL/min) 68 L Glucose (70.0 - 110.0 mg/dl) 91 Calcium (8.0 - 10.5 mg/dl) 8.6 Lipase (65.0 - 230.0 Units/L) 97 Hematology WBC (4.5 - 11.0 K/mm3) 6.1 RBC (4.40 - 5.90 M/mm3) 3.48 L Hgb (13.0 - 17.0 gm/dL) 10.1 L Hct (36.0 - 48.0 %) 32.2 L MCV (80.0 - 94.0 UM3) 92.5 MCH (25.5 - 32.5 UUG) 29.0 MCHC (29.0 - 35.5 gm/dL) 31.4 RDW (11.5 - 15.0 %) 15.3 H Plt Count (150 - 400 K/mm3) 152 MPV (7.4 - 10.4 fl) 9.9 Neut % (Auto) (49.0 - 76.0 %) 57.0 Lymph % (Auto) (23.0 - 38.0 %) 30.6 Peach % (Auto) (1.0 - 10.0 %) 10.4 H Eos % (Auto) (1.0 - 5.0 %) 1.3 Baso % (Auto) (0.0 - 1.0 %) 0.5 Neut # (Auto) (2.4 - 6.3 K/mm3) 3.5 Lymph # (Auto) (1.2 - 4.0 K/mm3) 1.9 Peach # (Auto) (0.0 - 0.6 K/mm3) 0.6 Eos # (Auto) (0.0 - 0.7 K/MM3) 0.1 Baso # (Auto) (0.0 - 0.2 K/mm3) 0.0 Immature Gran % (0.0 - 0.4 %) 0.2 Immature Gran # (0.00 - 0.07 x10 3/uL) 0.01 Recent Impressions: RADIOLOGY - XR CHEST 1 V 12/12 1821 Report Impression - Status: SIGNED Entered: 12/13/2019 1839 Impression: 1. Normal one view chest x-ray. 2. Colonic distention. Impression By: Michelle EDWARDS CAT SCAN - CT ABD PELVIS W/O CONT 12/13 1919 Report Impression - Status: SIGNED Entered: 12/13/2019 194 IMPRESSION: 1. Marked distention of the transverse colon ess entially unchanged in appearance when compared to the prior study date d 02/28/2013. No definite obstructive lesion is identified given the stability of this finding is likely as a chronic finding. 2. Otherwise unremarkable unenhanced CT scan of abdomen and pelvis. Impression By: Michelle EDWARDS Lab Statement Laboratory studies reviewed and considered in e medical decision-making. Imaging Statement Radiographic studies reviewed and considered in the medical decision-making. ECG #1 Interpretation Date 12/13/19 Time 1818 Interpreted by ED physician NL ECG Interpretation Normal rate, Normal sinus rhythm, No acute ischemic changes, No STEMI, Normal QRS, Normal ST waves, Normal T waves, Normal axis, Normal intervals, No change from prior ECGs, Yenifer quate tracing Rate 65 Re-Evaluation MDM )( Re-Evaluation/Progress #1 )( Re-Eval Status Improved Patient Discharge Departure Vital Signs/Condition Vital Signs First Documented: Result Date Time Pulse Ox 98 12/12 1752 B/P 114/78 12/12 1752 B/P Mean 90 12/12 1752 O2 Delivery Room air 12/12 1752 Temp 37.0 12/12 1752 Pulse 74 12/12 1752 Resp 20 12/12 1752 Last Documented: Result Date Time Pulse Ox 100 12/12 2217 B/P 143/85 12/12 2217 B/P Mean 104 12/12 2217 Temp 36.6 12/12 2217 Pulse 114 12/12 2217 Resp 24 12/12 2217 O2 Delivery Room air 12/12 1752 All vital signs available at the time of this en try have been reviewed. Clinical Impression Clinical Impression Primary Impression: Abdominal pain Disposition Decision Discharge )( Discharged to Home Yes )( Time 2058 )( Date 12/13/19 Discharge/Care Plan (Auto) Prescriptions Current Visit Scripts No Known Home Medications Referrals No Primary or Family Physician (PCP/Family) Electronically Signed by Juan Jose Avendaño MD on 0 12/14/19 at 1939 RPT #:[id number] END OF REPORT
[2023-04-20] MEDS ORDERED: NA CHLORIDE 0.9% 1,000 ML ONE ×2 (21:23→22:05)
[2023-04-20 21:35] LABS: Absolute Lymphocytes (CBC) 1.7 K/uL (0.7-4.9); Hematocrit 32.4 % (39.6-49.0); Lymphocytes % 25.4 % (15.3-44.8); MCV 85.4 fL (80-100); MPV 7.8 fL (7.6-11.3); Platelets 200 thou/uL (152-406); RBC Red Blood Cell Count 3.79 M/uL (4.33-5.43)
[2023-04-20 21:52] LABS: Albumin 3.4 g/dL (3.4-5.0); Bilirubin Total 0.4 mg/dL (0.2-1.0); Potassium 3.9 mEq/L (3.5-5.1); Protein, Total 6.3 g/dL (6.4-8.2)
[2023-04-20] MEDS ORDERED: FAMOTIDINE 20 MG/2 ML VIAL IV ONE (22:05)
--- NOTE | 2023-04-20 22:15 | ER ---
Nurse's Notes [facility] Name: Rico Mcneill Age: 53 yrs Sex: Male : 1970 Arrival Date: 04/20/2023 Time: 19:57 Bed 3 Private MD: Diagnosis: Abdominal pain, Generalized;Ileus, unspecified;Dehydration Presentation: 04/20 20:21 Chief complaint: Patient states: I haven't been able to pee for almost 5 days, tomorrow vc1 will be 5 days. 20:21 Method Of Arrival: EMS: [facility] vc1 20:21 Coronavirus screen: Vaccine status: Patient reports receiving the 2nd dose of the covid vc1 vaccine. 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 Ebola Screen: Patient negative for fever greater than or equal to 101.5 degrees Fahrenheit, and additional compatible Ebola Virus Disease symptoms Patient denies exposure to infectious person. Patient denies travel to an Ebola-affected area in the 21 days before illness onset. No symptoms or risks identified at this time. 20:21 Initial Sepsis Screen: Does the patient meet any 2 criteria? No. Patient's initial vc1 sepsis screen is negative. Does the patient have a suspected source of infection? No. Patient's initial sepsis screen is negative. Risk Assessment: Do you want to hurt yourself or someone else? Patient reports no desire to harm self or others. 20:21 Acuity: OCTAVIO 3 vc1 20:21 Onset of symptoms was April 16, 2023. Care prior to arrival: Medication(s) given: vc1 Normal saline infusion, 400 cc IV initiated. 20 GA, in the left hand, Glucose check: 98. Triage Assessment: 20:30 General: Appears in no apparent distress. uncomfortable, slender, Behavior is calm, vc1 cooperative, appropriate for age. Pain: Complains of pain in right lower quadrant and left lower quadrant Pain does not radiate. Pain currently is 8 out of 10 on a pain scale. Quality of pain is described as pressure. EENT: No deficits noted. No signs and/or symptoms were reported regarding the EENT system. Neuro: Level of Consciousness is awake, alert, obeys commands, Oriented to person, place, time, situation, Appropriate for age. Cardiovascular: No deficits noted. Respiratory: Airway is patent Respiratory effort is even, unlabored, Respiratory pattern is regular, symmetrical. GI: No deficits noted. No signs and/or symptoms were reported involving the gastrointestinal system. : Reports inability to void, since 4 days. Derm: No deficits noted. No signs and/or symptoms reported regarding the dermatologic system. Musculoskeletal: No deficits noted. No signs and/or symptoms reported regarding the musculoskeletal system. Historical: - Allergies: 20:53 NKDA; vc1 - PMHx: 20:53 Hypertensive disorder; ileostomy; vc1 - PSHx: 20:53 Small bowel resection with ileostomy; ileostomy reversal ; October 2022; vc1 - Immunization history:: Adult Immunizations up to date. - Family history:: not pertinent. - Social history:: Smoking status: Patient reports use of chewing tobacco. Screenin:21 [facility] ED Fall Risk Assessment (Adult) History of falling in the last 3 months, vc1 including since admission No falls in past 3 months (0 pts) Confusion or Disorientation No (0 pts) Intoxicated or Sedated Yes (3 pts) Impaired Gait No (0 pts) Mobility Assist Device Used No (0 pt) Altered Elimination No (0 pt) Score/Fall Risk Level 0 - 2 = Low Risk Oriented to surroundings, Maintained a safe environment, Educated pt \T\ family on fall prevention, incl call for assistance when getting out of bed. Abuse screen: Denies threats or abuse. Nutritional screening: No deficits noted. Tuberculosis screening: No symptoms or risk factors identified. Assessment: 21:00 Reassessment: No changes from previously documented assessment. Patient and/or family vc1 updated on plan of care and expected duration. Pain level reassessed. Patient is alert, oriented x 3, equal unlabored respirations, skin warm/dry/pink. 22:00 Reassessment: No changes from previously documented assessment. Patient and/or family vc1 updated on plan of care and expected duration. Pain level reassessed. Patient is alert, oriented x 3, equal unlabored respirations, skin warm/dry/pink. 23:28 General: Attempted to give report to BRITTNY Arias. No answer. Will try again.. vc1 23:42 Reassessment: No changes from previously documented assessment. Patient and/or family vc1 updated on plan of care and expected duration. Pain level reassessed. Patient is alert, oriented x 3, equal unlabored respirations, skin warm/dry/pink. Vital Signs: 20:21 BP 109 / 47; Pulse 70; Resp 20; Temp 98; Pulse Ox 100% ; Weight 65.77 kg; Height 6 ft. vc1 1 in. ; Pain 9/10; 22:00 BP 122 / 76; Pulse 66; Resp 18; Pulse Ox 100% ; vc1 23:00 BP 119 / 78; Pulse 65; Resp 18; Pulse Ox 100% ; vc1 20:21 Body Mass Index 19.13 (65.77 kg, 185.42 cm) vc1 20:21 Pain Scale: Adult vc1 ED Course: 19:59 Patient arrived in ED. me1 20:04 Rashaun Jiménez MD is Attending Physician. diego 20:21 Arm band placed on right wrist. vc1 20:21 Patient has correct armband on for positive identification. Bed in low position. Call vc1 light in reach. Pulse ox on. NIBP on. 20:44 Alejandra Mack, BRITTNY is Primary Nurse. vc1 20:47 CT Abd/Pelvis - Without Contrast In Process Unspecified. EDMS 20:53 Triage completed. vc1 22:38 Nathaniel Burdick MD is Hospitalizing Provider. [facility] 04/21 01:18 No provider procedures requiring assistance completed. Patient admitted, IV remains in vc1 place. Administered Medications: 04/20 21:54 Drug: NS 0.9% IV 1000 ml Route: IV; Rate: 1 bolus; Site: left antecubital; sg5 21:55 Drug: Famotidine IVP 20 mg Route: IVP; Site: left antecubital; sg5 21:55 Drug: NS 0.9% IV 1000 ml Route: IV; Rate: 125 ml/hr; Site: left antecubital; sg5 22:44 Drug: Piperacillin-Tazobactam IVPB 3.375 grams Route: IVPB; Infused Over: 60 mins; vc1 Site: left wrist; Medication: 20:53 VIS not applicable for this client. vc1 Outcome: 22:15 ER care complete, transfer ordered by . diego 22:39 Decision to Hospitalize by Provider. [facility] 04/21 01:18 Admitted to Med/surg accompanied by nurse, via wheelchair, room 412. vc1 Condition: good Instructed on the need for admit. 01:18 Patient left the ED. vc1 Signatures: Dispatcher [employer] Rashaun Delarosa MD MD cha Calcote, Vanessa RN RN vc1 Nichole Tee RN RN sg5 Funmilayo Holloway RN RN me1 Corrections: (The following items were deleted from the chart) 04/20 20:53 20:51 Arm band placed on right wrist. vc1 vc1
--- NOTE | 2023-04-20 22:15 | EDPHYS ---
Physician Documentation [facility] Name: Rico Mcneill Age: 53 yrs Sex: Male : 1970 Arrival Date: 04/20/2023 Time: 19:57 Bed 3 Private MD: JEANNETTE Physician Rashaun Jiménez HPI: 04/20 20:12 This 53 yrs old Male presents to ER via Unassigned with complaints of no diego urine x 4 days. 20:12 The patient presents with abdominal pain in the lower abdomen, abdominal distention in diego the upper abdomen, in the lower abdomen. Onset: The symptoms/episode began/occurred 4 day(s) ago. The patient presents with urinary symptoms, unable to void. Onset: The symptoms/episode began/occurred 3 day(s) ago. Modifying factors: The symptoms are alleviated by nothing, the symptoms are aggravated by nothing. Associated signs and symptoms: The patient has no apparent associated signs or symptoms. The symptoms do not radiate. Associated signs and symptoms: none. Severity of pain: At its worst the pain was mild in the emergency department the pain is unchanged. 20:37 Modifying factors: The symptoms are alleviated by nothing. Severity of symptoms: At diego their worst the symptoms were mild, moderate, in the emergency department the symptoms are unchanged. The patient has experienced similar episodes in the past, a few times. Historical: - Allergies: 20:53 NKDA; vc1 - PMHx: 20:53 Hypertensive disorder; ileostomy; vc1 - PSHx: 20:53 Small bowel resection with ileostomy; ileostomy reversal ; October 2022; vc1 - Immunization history:: Adult Immunizations up to date. - Family history:: not pertinent. - Social history:: Smoking status: Patient reports use of chewing tobacco. ROS: 20:13 Constitutional: Negative for fever, chills, and weight loss, Eyes: Negative for injury, diego pain, redness, and discharge, ENT: Negative for injury, pain, and discharge, Neck: Negative for injury, pain, and swelling, Cardiovascular: Negative for chest pain, palpitations, and edema, Respiratory: Negative for shortness of breath, cough, wheezing, and pleuritic chest pain, Back: Negative for injury and pain, MS/Extremity: Negative for injury and deformity, Skin: Negative for injury, rash, and discoloration, Neuro: Negative for headache, weakness, numbness, tingling, and seizure, Psych: Negative for depression, anxiety, suicide ideation, homicidal ideation, and hallucinations, Allergy/Immunology: Negative for hives, rash, and allergies, Endocrine: Negative for neck swelling, polydipsia, polyuria, polyphagia, and marked weight changes, Hematologic/Lymphatic: Negative for swollen nodes, abnormal bleeding, and unusual bruising. 20:13 Abdomen/GI: Positive for abdominal pain. Exam: 20:13 Constitutional: This is a well developed, well nourished patient who is awake, alert, diego and in no acute distress. Head/Face: Normocephalic, atraumatic. Eyes: Pupils equal round and reactive to light, extra-ocular motions intact. Lids and lashes normal. Conjunctiva and sclera are non-icteric and not injected. Cornea within normal limits. Periorbital areas with no swelling, redness, or edema. ENT: Nares patent. No nasal discharge, no septal abnormalities noted. Tympanic membranes are normal and external auditory canals are clear. Oropharynx with no redness, swelling, or masses, exudates, or evidence of obstruction, uvula midline. Mucous membranes moist. Neck: Trachea midline, no thyromegaly or masses palpated, and no cervical lymphadenopathy. Supple, full range of motion without nuchal rigidity, or vertebral point tenderness. No Meningismus. Chest/axilla: Normal chest wall appearance and motion. Nontender with no deformity. No lesions are appreciated. Cardiovascular: Regular rate and rhythm with a normal S1 and S2. No gallops, murmurs, or rubs. Normal PMI, no JVD. No pulse deficits. Respiratory: Lungs have equal breath sounds bilaterally, clear to auscultation and percussion. No rales, rhonchi or wheezes noted. No increased work of breathing, no retractions or nasal flaring. Abdomen/GI: Soft, non-tender, with normal bowel sounds. No distension or tympany. No guarding or rebound. No evidence of tenderness throughout. Back: No spinal tenderness. No costovertebral tenderness. Full range of motion. Male : Normal genitalia with no discharge or lesions. Skin: Warm, dry with normal turgor. Normal color with no rashes, no lesions, and no evidence of cellulitis. MS/ Extremity: Pulses equal, no cyanosis. Neurovascular intact. Full, normal range of motion. Neuro: Awake and alert, GCS 15, oriented to person, place, time, and situation. Cranial nerves II-XII grossly intact. Motor strength 5/5 in all extremities. Sensory grossly intact. Cerebellar exam normal. Normal gait. Psych: Awake, alert, with orientation to person, place and time. Behavior, mood, and affect are within normal limits. Vital Signs: 20:21 BP 109 / 47; Pulse 70; Resp 20; Temp 98; Pulse Ox 100% ; Weight 65.77 kg; Height 6 ft. vc1 1 in. ; Pain 9/10; 22:00 BP 122 / 76; Pulse 66; Resp 18; Pulse Ox 100% ; vc1 23:00 BP 119 / 78; Pulse 65; Resp 18; Pulse Ox 100% ; vc1 20:21 Body Mass Index 19.13 (65.77 kg, 185.42 cm) vc1 20:21 Pain Scale: Adult vc1 MDM: 20:04 Patient medically screened. [facility] 20:14 Differential diagnosis: nonspecific abdominal pain, UTI, urinary retention, [facility] prostatitis, urethritis, bowel obstruction, diverticulitis, gastritis, non-specific abd pain, pancreatitis, Prostatitis, urinary tract infection. Data reviewed: vital signs, nurses notes, lab test result(s), radiologic studies, CT scan. Consideration of Admission/Observation Escalation of care including admission/observation considered. I considered the following discharge prescriptions or medication management in the emergency department Medications were administered in the Emergency Department. See MAR. Test considered but Not performed: Ultrasound no abd usg. Care significantly affected by the following chronic conditions: Cancer, colostomy , reversed. 04/20 20:08 Order name: CBC with Diff; Complete Time: 21:52 [facility] 04/20 20:08 Order name: CMP; Complete Time: 22:08 [facility] 04/20 20:08 Order name: Lipase; Complete Time: 22:08 [facility] 04/20 20:08 Order name: Urinalysis w/ reflexes [facility] 04/20 20:08 Order name: CT Abd/Pelvis - Without Contrast; Complete Time: 21:02 [facility] 04/20 20:08 Order name: IV Saline Lock; Complete Time: 21:52 [facility] 04/20 20:08 Order name: Labs collected and sent; Complete Time: 21:52 [facility] 08/28 20:08 Order name: Bladder Scanner: note pvr; Complete Time: 22:45 diego Administered Medications: 21:54 Drug: NS 0.9% IV 1000 ml Route: IV; Rate: 1 bolus; Site: left antecubital; sg5 21:55 Drug: Famotidine IVP 20 mg Route: IVP; Site: left antecubital; sg5 21:55 Drug: NS 0.9% IV 1000 ml Route: IV; Rate: 125 ml/hr; Site: left antecubital; sg5 22:44 Drug: Piperacillin-Tazobactam IVPB 3.375 grams Route: IVPB; Infused Over: 60 mins; vc1 Site: left wrist; Disposition Summary: 04/20/23 22:39 Hospitalization Ordered Hospitalization Status: Observation diego Provider: Nathaniel Burdick cha Location: Telemetry/MedSurg (observation) diego Condition: Stable(04/20/23 22:39) diego Problem: new(04/20/23 22:39) diego Symptoms: have improved(04/20/23 22:39) diego Bed/Room Type: Standard [facility] Room Assignment: 412(04/20/23 22:55) Diagnosis - Abdominal pain, Generalized(04/20/23 22:39) diego - Ileus, unspecified(04/20/23 22:39) diego - Dehydration(04/20/23 22:39) diego Forms: - Medication Reconciliation Form diego - SBAR form diego - Leadership Thank You Letter diego Signatures: Dispatcher [employer] EDKaitlyn Earl RN RN mw Anderson, Corey, MD MD cha Calcote, Vanessa RN RN vc1 Nichole Tee RN RN sg5 Corrections: (The following items were deleted from the chart) 22:37 22:15 to [facility] diego diego 22:37 22:15 [facility] diego diego 22:37 22:15 Higher level of care diego diego 22:37 22:15 Fair diego diego 22:37 22:15 new diego diego 22:37 22:15 have improved diego diego 22:37 22:15 Ileus, unspecified diego diego 22:37 22:15 Dehydration diego diego 22:37 22:15 Abdominal pain, Generalized diego diego 22:55 22:39 diego
[2023-04-20] MEDS ORDERED: PIPERACIL/TAZO 3.375 GM VIAL IV ONE (22:36)
[2023-04-20] MEDS ORDERED: NA CHLORIDE 0.9% 100 ML ONE (22:36)
[2023-04-20 23:22] LABS: Specific Gravity > 1.030 (1.005-1.030); Urine Bacteria <20 /HPF (<20); Urine Bilirubin NEGATIVE (Negative); Urine Blood 2+ (Negative); Urine Clarity Extremely Turbid (Clear); Urine Color Yellow (Yellow); Urine Crystals Unidentified Few /HPF (None Seen); Urine Glucose NEGATIVE (Negative); Urine Mucus 1+ /HPF (None Seen); Urine Protein 1+ (Negative); Urine Urobilinogen Normal (Normal); Urine WBC Clump Rare /HPF (None Seen)
[2023-04-20] MEDS ORDERED: ACETAMINOPHEN 500 MG TAB PO PRN (23:33)
[2023-04-20] MEDS ORDERED: ONDANSETRON 4 MG/2 ML VIAL IV PRN (23:33)
[2023-04-21 01:37] VITALS: BMI 19.1
[2023-04-21] MEDS: MORPHINE 4 MG/ML SYR IV PRN ×2 (01:59→12:31)
[2023-04-21] MEDS: D5 0.45 NS 1,000 ML IV SCH ×3 (01:59→15:33)
[2023-04-21 07:02] LABS: Absolute Lymphocytes (CBC) 1.5 K/uL (0.7-4.9); Hematocrit 31.7 % (39.6-49.0); Lymphocytes % 26.3 % (15.3-44.8); MCV 85.9 fL (80-100); MPV 7.8 fL (7.6-11.3); Platelets 181 thou/uL (152-406); RBC Red Blood Cell Count 3.69 M/uL (4.33-5.43)
[2023-04-21 07:15] LABS: Potassium 3.5 mEq/L (3.5-5.1)
[2023-04-21] MEDS: FAMOTIDINE 20 MG/2 ML VIAL IV SCH ×2 (08:05→20:29)
--- NOTE | 2023-04-21 14:09 | P.HP ---
Date of Service: 04/21/23 PC: This 53-year-old male presented to the emergency room with abdominal distention, and the inability to pass urine. HPC: Patient is homeless. He had been out sleeping rough over the weekend. He had tried to keep himself well-hydrated, but noticed that he was no longer passing urine and his abdomen is getting bigger and he came to the ER for evaluation and treatment PSHx: Patient has a history of Crohn's disease requiring resection of his colon. He was put back together, and has had very little problems since that time. PMHx: Denies any medical issues Social Hx: No known drug allergies, does not use any recreational drugs. Sys R: No cough, wheeze, shortness of breath. No chest pain or palpitations. Has not had trouble with urination in the past. O/E: Awake alert vital signs are stable HEENT: Within normal limits Chest: Chest movement equal bilaterally Abd: Mildly distended Distant: Intact Data: Patient shows distention on his abdominal films Impression: Ileus and dehydration Plan: Hydrate patient, encourage ambulation, repeat electrolyte exam, anticipate discharge soon.
[2023-04-21] MEDS: NS KCL 20MEQ 20 MEQ/1,000 ML BAG IV SCH (18:25)
[2023-04-22] MEDS: NS KCL 20MEQ 20 MEQ/1,000 ML BAG IV SCH ×2 (01:58→10:00)
[2023-04-22] MEDS: FAMOTIDINE 20 MG/2 ML VIAL IV SCH ×2 (08:31→20:37)
[2023-04-22] MEDS: MORPHINE 4 MG/ML SYR IV PRN (13:57)
[2023-04-22 14:12] LABS: Potassium 4.1 mEq/L (3.5-5.1)
--- NOTE | 2023-04-22 17:30 | P.PN ---
Date of Service: 04/22/23 S: Patient has no specific complaints, says he feels much better. O: Abdomen is less distended, minimal tenderness. A: Ileus appears to have resolved as well as his urinary retention. P: Regular diet tonight if tolerated discharge in the a.m.
[2023-04-22 20:58] VITALS: O2SAT 98
[2023-04-23] MEDS: MORPHINE 4 MG/ML SYR IV PRN (09:16)
[2023-04-23] MEDS: FAMOTIDINE 20 MG/2 ML VIAL IV SCH (09:17)
[2023-04-23 12:39] VITALS: BP 110/62; TEMP 98.4
== END 2023-04-23 14:20 | disposition home or self-care (01) | DRG 389 ==
LOC: ER 19:57 → 4TH 22:43 → OBSVTOIN 04-21 12:39
PROVIDERS: ADMIT Surgery; ATTEND Surgery
DX: K56.7 Ileus, unspecified (principal); K50.90 Crohn's disease, unspecified, without complications; E86.0 Dehydration; R33.9 Retention of urine, unspecified; Z59.00 Homelessness unspecified; F17.220 Nicotine dependence, chewing tobacco, uncomplicated; Z90.49 Acquired absence of other specified parts of digestive tract
CPT/HCPCS: 36415; 74176; 80048; 80053; 81001; 83690; 85025; 99285; G0378; J2405; J2543; J3480; J7030; J7799

== ENCOUNTER 2023-04-23 17:20 | Emergency (ER) | payer SELFPAY ==
--- OUTSIDE RECORDS SUMMARY | 2023-04-23 18:39 | XMS REPORT | Continuity of Care Document ---
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 No 500mL at 999 Unive rs ringers IV 4-16 04-16 mL/hr, 500 it y of infusion 15:21: 16:01 mL, [place] 500 mL 00 :00 Intravenou Medical s, ONCE, 1 Branch dose, On [facility] 12/07/22 at 1030, Routine ibuprofen 2022-0 Yes 400mg 400 mg, Univ ers (IBU) 4-16 Oral, TID ity of tablet 400 13:00: MEALS, [place] mg 00 First dose Medical on [facility] Branch 12/07/22 at 0800, Until Discontinu ed, Routine methocarbam 2022-0 Yes 500mg 500 mg, Un piyush oL 4-16 Oral, QID, ity of (ROBAXIN) 13:00: First dose [place] tablet 500 00 on [facility] mg 12/07/22 at Branch 0800, Until Discontinu ed, Routine D5W 0.45% 2022-0 2023- No 1000mL at 50 Univ ers NaCl 4-16 04-16 mL/hr, ity of (1/2NS) IV 12:30: 23:10 1,000 mL, [place] infusion 00 :22 IV Medical 1,000 mL Infusion, Branch CONTINUOUS , Starting on 12/07/22 at 0730, Until 12/07/22 at 1810, Routine ketorolac 2022-0 2023- No 15mg 15 mg, Unive rs (TORADOL) 4-15 04-15 Slow IV ity of injection 05:00: 22:03 Push, Q6H, [place] 15 mg 00 :00 4 doses, Medical First dose Branch (after last reorder) on Thu12/06/22 at 0000, Last dose on 12/06/22 at 1800, Routine acetaminoph 2023-0 2023- No 1000mg 1,000 mg, Univers en ADULT 12-06 IV ity of (OFIRMEV) 03:00: 19:31 Infusion, [place] injection 00 :00 at 400 Medical 1,000 mg mL/hr Branch Administer over 15 Minutes, Q8H, 3 doses, First dose (after last reorder) on Thu12/05/22 at 2200, Last dose on Thu12/06/22 at 1400, Routine
Indicatio n: Perioperat ector Patient NaCl 0.9% 2023-0 Yes 10mL 10 mL, Univer s (NS) 4-14 Slow IV ity of injection 12:03: Push, PRN, [place] 10 mL 43 Starting Medical on Thu Branch 12/05/22 at 0703, Until Discontinu ed, Routine, line maintenanc e lidocaine 3-0 Yes 5mL 5 mL, Univers 1% (PF) 4-14 Subcutaneo ity of (XYLOCAINE) 12:03: us, PRN, [place] injection 5 43 Starting Medi mariusz mL on Fri Branch 12/05/22 at 0703, Until Discontinu ed, Routine, Local anesthesia NaCl 0.9% 3-0 Yes 10mL 10 mL, Univer s (NS) 4-14 Slow IV ity of injection 12:03: Push, PRN, [place] 10 mL 43 Starting Medical on Fri Branch 12/05/22 at 0703, Until Discontinu ed, Routine, line maintenanc e lidocaine 2023-0 Yes 5mL 5 mL, Univers 1% (PF) 4-14 Subcutaneo ity of (XYLOCAINE) 12:03: us, PRN, [place] injection 5 43 Starting Medi mariusz mL on Fri Branch 12/05/22 at 0703, Until Discontinu ed, Routine, Local anesthesia ketorolac 3-0 202- No 15mg 15 mg, Unive rs (TORADOL) [...] No 500mg 500 mg, U nivers oL 12-05-16 Intravenou ity of (ROBAXIN) 03:00: 12:26 s, Q8H, 18 [place] injection 00 :17 doses, Medical 500 mg First dose Branch on Thu12/04/22 at 2200, Last dose on Thu12/10/22 at 1400, Routine acetaminoph 2022- No 1000mg 1,000 mg, [...] Dose >=24mg ECG monitoring is advisable.
ondansetron Yes 4mg 4 mg, Slow Univers (ZOFRAN 4-14 IV Push, ity of (PF)) 01:29: Q6HPRN, [place] injection 4 25 Nausea and Me dical mg Vomiting Branch (N/V), Starting on [facility] 12/04/22 at 2028
Do ses of ondansetro n 16 mg and above need to be administer ed via IV piggyback. For Dose >=24mg ECG monitoring is advisable.
gabapentin 0 Yes 300mg 300 mg, Uni vers (NEURONTIN) 4-14 Oral, TID, it y of capsule 300 01:00: First dose [place] mg 00 on [facility] Medical 12/04/22 at Branch 1999, Until Discontinu ed, Routine gabapentin 0 Yes 300mg 300 mg, Uni vers (NEURONTIN) 4-14 Oral, TID, it y of capsule 300 01:00: First dose [place] mg 00 on [facility] 12/04/22 at Branch 1999, Until Discontinu ed, Routine alvimopan 0 2022- No 12mg 12 mg, Unive rs (ENTEREG) 12-05-16 Oral, BID, ity of capsule 12 01:00: 00:59 4 doses, [place] mg 00 :00 First dose Medical on [facility] 12/04/22 at 1999, Last dose on [facility] 12/06/22 at 0800, Routine
Restricte d use approved by: BIA PEDRO R. - SURGERY/GE NERAL alvimopan 0 2022- No 12mg 12 mg, Unive rs (ENTEREG) 12-05-15 Oral, BID, ity of capsule 12 01:00: 13:45 4 doses, [place] mg 00 :00 First dose Medical on [facility] 12/04/22 at 1999, Last dose on [facility] 12/06/22 at 0800, Routine
Restricte d use approved by: MAYELA BIA R. - SURGERY/GE NERAL D5W 0.45% Yes 1000mL at 125 Univ ers NaCl 4-14 mL/hr, ity of (1/2NS) IV 00:30: 1,000 mL, [place] infusion 00 IV Medical 1,000 mL Infusion, Branch CONTINUOUS , Starting on [facility] 12/04/22 at 1930, Until Discontinu ed, Routine D5W 0.45% 2022- No 1000mL at 125 Uni vers NaCl 4-14 04-16 mL/hr, ity of (1/2NS) IV 00:30: 12:26 1,000 mL, [place] infusion 00 :17 IV Medical 1,000 mL Infusion, Branch CONTINUOUS , Starting on [place] 12/04/22 at 1930, Until 12/07/22 at 0726, Routine HYDROcodone 0 Yes 1{tbl} 1 tablet, Univers -acetaminop 4-13 Oral, ity of hen (NORCO 23:16: Q6HPRN, [place] 5) 5-325 mg 27 Starting Medi mariusz tablet 1 on [place] Branch tablet 12/04/22 at 1816, Until Discontinu ed, Routine, Pain (scale 4-6) HYDROcodone Yes 1{tbl} 1 tablet, Univers -acetaminop 4-13 Oral, ity of hen (NORCO 23:16: Q6HPRN, [place] 5) 5-325 mg 27 Starting Medi mariusz tablet 1 on [place] Branch tablet 12/04/22 at 1816, Until Discontinu ed, Routine, Pain (scale 4-6) HYDROmorpho 2022- No .5mg 0.5 mg, Un piyush ne 12-04-15 Slow IV ity of (DILAUDID) 23:16: 23:15 Push, [place] injection 03 :03 Q4HPRN, Medical 0.5 mg Starting Branch on [place] 12/04/22 at 1816, Until 12/06/22 at 1815, Routine, Pain (scale 7-10)
U se approved by (Faculty): GENERAL SURGERY
General surgeon approving: mayela HYDROmorpho 2022- No .5mg 0.5 mg, Un piyush [...] Routine
Restricte d use approved by: BIA PEDRO. - SURGERY/GE NERAL magnesium 2022- No 4g [...] Branch (NS) 250 mL Hours, On infusion [facility] 12/02/22 at 1345, For 1 dose cyanocobala 2022- No 1000ug 1,000 mcg, Univers min (DODEX) 12-02 Intramuscu i ty of injection 17:15: 18:15 lar, ONCE, [place] 1,000 mcg 00 :00 1 dose, On Medi mariusz [facility] Branch 12/02/22 at 1215, Routine NaCl 0.9% 2022- No 1000mL at 125 Uni vers (NS) IV 12-02 mL/hr, IV ity of infusion 14:00: 23:16 Infusion, [place] 1,000 mL 00 :47 CONTINUOUS Medic al , Starting Branch on Thu12/02/22 at 0900, Until [place] 12/04/22 at 1816, Routine magnesium 2022- No 4g [...] dose, On Thu12/02/22 at 0100, Routine loperamide 2022- No 4mg 4 mg, Unive rs (IMODIUM 12-01 Oral, QID, ity of A-D) 21:00: 15:30 First dose [place] capsule 4 00 :08 (after Medical mg last Branch modificati on) on Thu12/01/22 at 1600, Until Discontinu ed, Routine NaCl 0.9% 2022- No 1000mL at 75 Univ ers (NS) IV 12-01- mL/hr, IV ity of infusion 16:15: 13:50 Infusion, [place] 1,000 mL 00 :30 CONTINUOUS Medic al , Starting Branch on Thu12/01/22 at 1115, Until Thu12/02/22 at 0850, Routine sulfur 2022- No [id number] 5mL 5 mL, Unive rs hexafluorid 12-0110 Intravenou i ty of e microsphr 15:00: 15:00 s, ONCE, 1 [place] (LUMASON) 00 :00 dose, On Medica l injection 5 Thu Branch 12/01/22 at 1000, Routine
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 approving Restricted medication : ISAÍAS HELM lactated 2022-0 2022- No 500mL at 999 Unive rs ringers IV 12-01 04-10 mL/hr, 500 it y of infusion 06:00: 07:00 mL, [place] 500 mL 00 :00 Intravenou Medical s, ONCE, 1 Branch dose, On Thu12/01/22 at 0100, Routine lactated 2023-0 2023- No 500mL at 999 Unive rs ringers IV 12-01 04-10 mL/hr, 500 it y of infusion 02:15: 03:00 mL, [place] 500 mL 00 :00 Intravenou Medical s, ONCE, 1 Branch dose, On Thu11/30/22 at 2115, Routine diphenoxyla 2022-0 2023- No 1{tbl} 1 tablet, Univers te-atropine 11-30 Oral, Q6H, i ty of (LOMOTIL) 17:00: 15:30 First dose [place] 2.5-0.025 00 :08 (after Medical mg tablet 1 last Branch tablet modificati on) on Thu11/30/22 at 1200, Until Discontinu ed, Routine lactated 2023-0 2023- No 500mL at 999 Unive rs ringers IV 11-30 04-10 mL/hr, 500 it y of infusion 14:00: 01:00 mL, [place] 500 mL 00 :00 Intravenou Medical s, ONCE, 1 Branch dose, On Thu11/30/22 at 0900, Routine magnesium 3-0 2022- No 4g 4 g, IV Univ ers sulfate in 11-30-09 Piggyback, it y of water 4 13:45: 18:09 at 25 [place] gram/50 mL 00 :00 mL/hr Medical (8 %) IV Administer Branc h Piggyback 4 over 120 g Minutes, ONCE, 1 dose, On Thu11/30/22 at 0845, Routine NaCl 0.9% 2023-0 2023- No 1000mL at 150 Uni vers (NS) IV 11-30 04-10 mL/hr, IV ity of infusion 13:15: 16:14 Infusion, [place] 1,000 mL 00 :31 CONTINUOUS Medic al , Starting Branch on Thu11/30/22 at 0815, Until Thu12/01/22 at 1114, Routine NaCl 0.9% 2023-0 2023- No 500mL at 999 Univ ers (NS) bolus 11-30 04-10 mL/hr, 500 it y of infusion 04:45: 01:00 mL, IV [place] 500 mL 00 :00 Piggyback, Medical ONCE, 1 Branch dose, On 11/29/22 at 2345, JOÃO NaCl 0.9% 2022-0 2022- No 1000mL at 75 Univ ers (NS) IV 11-29- mL/hr, IV ity of infusion 16:00: 13:02 Infusion, [place] 1,000 mL 00 :33 CONTINUOUS Medic al , Starting Branch on 11/29/22 at 1100, Until 11/30/22 at 0802, Routine diphenoxyla 2022-0 2022- No 1{tbl} 1 tablet, [facility] te-atropine 11-29 Oral, Q8H, i ty of (LOMOTIL) 03:00: 13:19 First dose [place] 2.5-0.025 00 :36 on Fri Medical mg tablet 1 11/28/22 at [facility] tablet 2200, Until Discontinu ed, Routine loperamide 2022-0 2022- No 2mg 2 mg, Unive rs (IMODIUM 11-28 Oral, QID, ity of A-D) 21:00: 18:21 First dose [place] capsule 2 00 :50 (after Medical mg last Branch modificati on) on 11/28/22 at 1600, Until Discontinu ed, Routine cholestyram 2022-0 2022- No 1{packe 1 Packet, Univers ine 11-2813 t} Oral, TID, ity of (QUESTRAN) 19:00: 15:30 First dose [place] 4 gram 00 :08 on Fri Medical packet 1 11/28/22 at Branch Packet 1400, Until Discontinu ed, Routine vitamin 2022-0 Yes 2000ug 2,000 mcg, Un piyush B-12 11-28 Oral, ity of (CYANOCOBAL 14:00: DAILY, [place]) 00 First dose Medical tablet on Fri Branch 2,000 mcg 11/28/22 at 0900, Until Discontinu ed, Routine vitamin 2022-0 Yes 2000ug 2,000 mcg, Un piyush B-12 11-28 Oral, ity of (CYANOCOBAL 14:00: DAILY, [place]SON) 00 First dose Medical tablet on Fri Branch 2,000 mcg 11/28/22 at 0900, Until Discontinu ed, Routine calcium 2022-0 202- No 1{tbl} 250 mg (1 Un piyush carbonate-v 11-28 tablet), ity of itamin D3 14:00: 15:30 Oral, [place] (OSCAL-250 00 :08 DAILY, Medical + D) 250 First dose Branc h mg-3.125 on Thu mcg (125 11/28/22 at unit) per 0900, tablet 250 Until mg Discontinu ed, Routine magnesium 2022- No 4g 4 g, IV Univ ers sulfate in 11-28 Piggyback, it y of water 4 11:00: 19:36 at 25 [place] gram/50 mL 00 :00 mL/hr Medical (8 %) IV Administer Branc h Piggyback 4 over 120 g Minutes, ONCE, 1 dose, On Thu11/28/22 at 0600, Routine heparin 2022-0 Yes 5000U 5,000 Univers (porcine) 4-07 Units, ity of injection 01:00: Subcutaneo [place] 5,000 Units 00 us, Q12H, Med ical First dose Branch on Thu11/27/22 at 1999, Until Discontinu ed, Routine heparin 2022-0 Yes 5000U 5,000 Univers (porcine) 4-07 Units, ity of injection 01:00: Subcutaneo [place] 5,000 Units 00 us, Q12H, Med ical First dose Branch on Thu11/27/22 at 1999, Until Discontinu ed, Routine NaCl 0.9% 2022- No 1000mL at 100 Uni vers (NS) IV 11-27- mL/hr, IV ity of infusion 19:30: 15:46 Infusion, [place] 1,000 mL 00 :44 CONTINUOUS Medic al , Starting Branch on Thu11/27/22 at 1430, Until 11/29/22 at 1046, Routine sodium 2022-2022- No 650mg 650 mg, Univer s bicarbonate 11-27 Oral, TID, i ty of (ANTACID 19:00: 15:30 First dose [place] (SODIUM 00 :08 on [facility] BICARBONATE 11/27/22 at [facility] )) tablet 1400, 650 mg Until Discontinu ed, Routine psyllium 0 2022- No 1{packe 1 Packet, Univers husk 4-06 04-09 t} Oral, TID, ity of (METAMUCIL 19:00: [...] (0.1 ity of human 15:00: 15:55 Units/kg [place] (HUMULIN R) 00 :00 ?69.9 kg), Me dical injection IV Push, Branch 6.99 Units ONCE, 1 dose, On [facility] 11/27/22 at 1000, JOÃO
In dication for insulin: Hyperkalem ia- Please use the Insulin Protocol for Hyperkalem ia order set dextrose 50 2022- No 50mL 50 mL, Uni vers % in water 11-27 Slow IV ity o f (D50W) 15:00: 15:51 Push, [place] injection 00 :00 ONCE, 1 Medical 50 mL dose, On Branch [facility] 11/27/22 at 1000, JOÃO NaCl 0.9% 2022- No 1000mL at 9,999 U nivers (NS) IV 11-27 mL/hr, IV ity of infusion 15:00: 16:40 Infusion, [place] 1,000 mL 00 :00 ONCE, 1 Medical dose, On Branch [facility] 11/27/22 at 1000, JOÃO albuterol 2022- No 2.5mg 2.5 mg, Uni vers (PROVENTIL) 11-27 Inhalation i ty of 2.5 mg /3 15:00: 15:53 , ONCE, 1 [place] mL (0.083 00 :00 dose, On Medica l %) [place] 11/27/22 Branch nebulizer at 1000, solution STAT 2.5 mg calcium 2022- No 2g 2 g, IV Univer [...] at 0900, Until Discontinu ed, Routine magnesium 0 2022- No 4g 4 g, IV Univ ers sulfate in 11-22 Piggyback, it y of water 4 12:15: 13:48 at 25 [place] gram/50 mL 00 :00 mL/hr Medical (8 %) IV Administer Branc h Piggyback 4 over 120 g Minutes, ONCE, 1 dose, On 11/22/22 at 0715, Routine lactated 2022-0 Yes 1000mL at 200 Unive rs ringers IV 11-22 mL/hr, ity of infusion 11:30: 1,000 mL, [place] 1,000 mL 00 IV Medical Infusion, Branch CONTINUOUS , Starting on 11/22/22 at 0630, Until Discontinu ed, Routine psyllium 3-0 Yes [id number] 1{packe Take 1 Univers husk 3.4 11-22 t} Packet by ity of gram oral 00:00: mouth [place] powder 00 the Medical packet morning Branch and 1 Packet at noon and 1 Packet in the evening. psyllium 0 Yes [id number] 1{packe Take 1 Univers husk 3.4 4-01 t} Packet by ity of gram oral 00:00: mouth [place] powder 00 the Medical packet morning Branch and 1 Packet at noon and 1 Packet in the evening. psyllium 0 Yes [id number] 1{packe Take 1 Univers husk 3.4 4-01 t} Packet by ity of gram oral 00:00: mouth [place] powder 00 the Medical packet morning Branch and 1 Packet at noon and 1 Packet in the evening. psyllium 0 Yes [id number] 1{packe Take 1 Univers husk 3.4 4-01 t} Packet by ity of gram oral 00:00: mouth [place] powder 00 the Medical packet morning Branch and 1 Packet at noon and 1 Packet in the evening. psyllium 2022- No [id number] 1{packe Take 1 Univers husk 3.4 4-01 04-18 t} Packet by ity o f gram oral 00:00: 00:00 mouth in [place] powder 00 :00 the Medical packet morning Branch and 1 Packet at noon and 1 Packet in the evening. lactated 2022- No 1000mL at 125 Univ ers ringers IV 11-2101 mL/hr, ity of infusion 23:00: 11:22 1,000 mL, [place] 1,000 mL 00 :09 IV Medical Infusion, Branch CONTINUOUS , Starting on Thu11/21/22 at 1800, Until Thu11/22/22 at 0622, Routine lactated 2022- No 1000mL at 250 Univ ers ringers IV 11-21 mL/hr, ity of infusion 17:45: 22:46 1,000 mL, [place] 1,000 mL 00 :24 IV Medical Infusion, Branch CONTINUOUS , Starting on Thu11/21/22 at 1245, Until Thu11/21/22 at 1746, Routine magnesium 2022- No 2g 2 g, IV Univ ers sulfate in 11-21 Piggyback, it y of water 2 08:00: 10:07 Administer [place] gram/50 mL 00 :00 over 60 Medica l (4 %) Minutes, Branch infusion 2 ONCE, 1 g dose, On Thu11/21/22 at 0300, Routine iopamidol 2022- No [id number] 500mL 500 mL, Univers (ISOVUE 11-20 Rectal, [...] 1045, Until Thu11/21/22 at 1231, Routine vitamin 2022-0 Yes 2000ug 2,000 mcg, Un piyush B-12 11-20 Oral, ity of (CYANOCOBAL 14:00: DAILY, [place] 00 First dose Medical tablet on [place] Branch 2,000 mcg 11/20/22 at 0900, Until Discontinu ed, Routine psyllium 0 Yes 1{packe 1 Packet, U nivers husk 11-20 t} Oral, TID, ity of (METAMUCIL 13:00: First dose [place] (SUGAR 00 (after Medical FREE)) 3.4 last Branch gram oral modificati powder on) on [place] packet 1 11/20/22 at Packet 0800, Until Discontinu ed, Routine sodium 2022- No 650mg 650 mg, Univer s bicarbonate 11-20 Oral, QID, i ty of (ANTACID 11:15: 12:40 First [place] (SODIUM 00 :25 on [place] [facility] BICARBONATE 11/20/22 at Br anch )) tablet 0615, 650 mg Until Discontinu ed, Routine heparin 0 Yes 5000U 5,000 Univers (porcine) 11-20 Units, ity of injection 01:00: Subcutaneo [place] 5,000 Units 00 us, Q12H, Med ical First dose Branch on Thu11/19/22 at 2000, Until Discontinu ed, Routine psyllium 2023-0 2023- No 1{packe 1 Packet, [facility] 11-20 t} Oral, BID, ity of (METAMUCIL 01:00: 12:40 First dose [place] (SUGAR 00 :40 on Thu Medical FREE)) 3.4 11/19/22 at [facility] gram oral 2000, powder Until packet 1 Discontinu Packet ed, Routine NaCl 0.9% 2022- No 1000mL at 75 Univ ers (NS) IV 11-19 mL/hr, IV ity of infusion 22:30: 12:44 Infusion, [place] 1,000 mL 00 :21 CONTINUOUS Medic al , Starting Branch on Thu11/19/22 at 1730, Until Thu11/20/22 at 0744, Routine NaCl 0.9% 2022- No 1000mL at 100 Uni vers (NS) IV 11-19 mL/hr, IV ity of infusion 20:30: 21:23 Infusion, [place] 1,000 mL 00 :41 CONTINUOUS Medic al , Starting Branch on Thu11/19/22 at 1530, Until Thu11/19/22 at 1623, Routine loperamide Yes 2mg 2 mg, Univer s (IMODIUM 11-19 Oral, TID, ity o f A-D) 19:00: First dose [place] capsule 2 00 on Thu Medical mg [...] Yes 4mg 4 mg, Univer s (IMODIUM -16 Oral, TID, ity o f A-D) 19:00: First dose [place] capsule 4 00 (after Medical mg last Branch modificati on) on [place] 11/06/22 at 1400, Until Discontinu ed, Routine magnesium 2022-0 2022- No 400mg 400 mg, Uni vers oxide 11-06 Oral, ity of (MAG-OX 16:00: 17:46 ONCE, 1 [place] 400) tablet 00 :00 dose, On Medi mariusz 400 mg [place] Branch 11/06/22 at 1100, Routine magnesium 2022-0 202- No 2g 2 g, IV Univ ers [...] dose, On Thu11/05/22 at 2030, Routine sodium 2023-0 Yes [id number] 650mg Take 1 Univ ers bicarbonate 3-16 tablet by ity of 650 mg 00:00: mouth in [place] tablet the Medical morning Branch and 1 tablet at noon and 1 tablet in the evening. sodium 2023-0 Yes [id number] 650mg Take 1 Univ ers bicarbonate 3-16 tablet by ity of 650 mg 00:00: mouth in [place] tablet 00 the Medical morning Branch and 1 tablet at noon and 1 tablet in the evening. sodium 2023-0 Yes [id number] 650mg Take 1 Univ ers bicarbonate 3-16 tablet by ity of 650 mg 00:00: mouth in [place] tablet 00 the Medical morning and 1 tablet at noon and 1 tablet in the evening. sodium 2023-0 Yes [id number] 650mg Take 1 Univ ers bicarbonate 3-16 tablet by ity of 650 mg 00:00: mouth in [place] tablet 00 the Medical morning Branch and 1 tablet at noon and 1 tablet in the evening. sodium 2023-0 Yes [id number] 650mg Take 1 Univ ers bicarbonate 3-16 tablet by ity of 650 mg 00:00: mouth in [place] tablet 00 the Medical morning Branch and 1 tablet at noon and 1 tablet in the evening. sodium 2023-0 Yes [id number] 650mg Take 1 Univ ers bicarbonate 3-16 tablet by ity of 650 mg 00:00: mouth in [place] tablet 00 the Medical morning Branch and 1 tablet at noon and 1 tablet in the evening. sodium 2023-0 Yes [id number] 650mg Take 1 Univ ers bicarbonate 3-16 tablet by ity of 650 mg 00:00: mouth in [place] tablet 00 the Medical morning Branch and 1 tablet at noon and 1 tablet in the evening. sodium 2023-0 Yes [id number] 650mg Take 1 Univ ers bicarbonate 3-16 tablet by ity of 650 mg 00:00: mouth in [place] tablet 00 the Medical morning Branch and 1 tablet at noon and 1 tablet in the evening. sodium 2023-0 Yes [id number] 650mg Take 1 Univ ers bicarbonate 3-16 tablet by ity of 650 mg 00:00: mouth in [place] tablet 00 the Medical morning Branch and 1 tablet at noon and 1 tablet in the evening. sodium 2023-0 Yes [id number] 650mg Take 1 Univ ers bicarbonate 3-16 tablet by ity of 650 mg 00:00: mouth in [place] tablet 00 the Medical morning Branch and 1 tablet at noon and 1 tablet in the evening. sodium 2023-0 Yes [id number] 650mg Take 1 Univ ers bicarbonate 3-16 tablet by ity of 650 mg 00:00: mouth in [place] tablet 00 the Medical morning Branch and 1 tablet at noon and 1 tablet in the evening. sodium 2023-0 Yes [id number] 650mg Take 1 Univ ers bicarbonate 3-16 tablet by ity of 650 mg 00:00: mouth in [place] tablet 00 the Medical morning Branch and 1 tablet at noon and 1 tablet in the evening. sodium 2023-0 Yes [id number] 650mg Take 1 Univ ers bicarbonate 3-16 tablet by ity of 650 mg 00:00: mouth in [place] tablet 00 the Medical morning Branch and 1 tablet at noon and 1 tablet in the evening. sodium 2023-0 Yes [id number] 650mg Take 1 Univ ers bicarbonate 3-16 tablet by ity of 650 mg 00:00: mouth in [place] tablet 00 the Medical morning Branch and 1 tablet at noon and 1 tablet in the evening. sodium 2023-0 Yes [id number] 650mg Take 1 Univ ers bicarbonate 3-16 tablet by ity of 650 mg 00:00: mouth in [place] tablet 00 the Medical morning Branch and 1 tablet at noon and 1 tablet in the evening. sodium 2023-0 Yes [id number] 650mg Take 1 Univ ers bicarbonate 3-16 tablet by ity of 650 mg 00:00: mouth in [place] tablet 00 the Medical morning Branch and 1 tablet at noon and 1 tablet in the evening. sodium 2023-0 Yes [id number] 650mg Take 1 Univ ers bicarbonate 3-16 tablet by ity of 650 mg 00:00: mouth in [place] tablet 00 the Medical morning Branch and 1 tablet at noon and 1 tablet in the evening. loperamide No 2mg 2 mg, Unive rs (IMODIUM 11-0516 Oral, TID, ity of A-D) 19:00: 14:31 First dose [place] capsule 2 00 :21 (after Medical mg last Branch modificati on) on Thu11/05/22 at 1400, Until Discontinu ed, Routine COVID-19 Yes 1{each} 0.3 mL (1 U nivers vaccine,mRN 3-15 Each), ity of A PF 14:40: Intramuscu [place] (PFIZER) 30 56 lar, Medical mcg/0.3 mL ONCE-PRIOR [facility] injection TO 0.3 mL DISCHARGE, 1 dose, Starting on Thu11/05/22 at 0940, Until Discontinu ed, JOÃO, Give vaccine prior to discharge< br>Is this the patient's 1st dose or 2nd dose of COVID vaccine? First Dose cyanocobala No 1000ug 1,000 mcg, Univers min (DODEX) 11-0518 Intramuscu i ty of injection 14:00: 13:59 [...] 0800, Until Discontinu ed, Routine loperamide 2022-0 2023- No 4mg 4 mg, Unive rs (IMODIUM 11-05-15 Oral, BID, ity of A-D) 13:00: 14:34 [...] Branch Thu11/05/22 at 0730, Routine NaCl 0.9% 2023-0 202- No 500mL at 999 Univ ers (NS) bolus 3-05 11-15 mL/hr, 500 it y of infusion 05:45: 06:00 mL, IV [place] 500 mL 00 :00 Piggyback, Medical ONCE, 1 Branch dose, On Thu11/05/22 at 0045, STAT loperamide 3-0 3- No 2mg 2 mg, Unive rs (IMODIUM 11-05-15 Oral, BID, ity of A-D) 01:00: 11:55 First dose [place] capsule 2 00 :51 (after Medical mg last Branch modificati on) on Thu11/04/22 at 2000, Until Discontinu ed, Routine psyllium 2023-0 2023- No 1[facility]packe [facility]} Oral, BID, ity of (METAMUCIL 01:00: 11:55 First dose [place] (SUGAR 00 :51 (after Medical FREE)) 3.4 last Branch gram oral modificati powder on) on Tue packet 1 11/04/22 at Packet 2000, Until Discontinu ed, Routine calcium 2022-0 Yes [id number] 250mg Take 1 Uni vers carbonate-v 3-15 tablet by ity of itamin D3 00:00: mouth in [place] [address] the Medical mg-3.125 morning. Branch mcg (125 unit) per tablet loperamide 2022-0 Yes [id number] 2mg Take 1 U nivers 2 mg 3-15 capsule by ity of capsule 00:00: mouth in [place] [address] the Medical morning Branch and 1 capsule at noon and 1 capsule in the evening. calcium 2022-0 Yes [id number] 250mg Take 1 Uni vers carbonate-v 3-15 tablet by ity of itamin D3 00:00: mouth in [place] [address] the Medical mg-3.125 morning. Branch mcg (125 unit) per tablet loperamide 2022-0 Yes [id number] 2mg Take 1 U nivers 2 mg 3-15 capsule by ity of capsule 00:00: mouth in [place] [address] the Medical morning Branch and 1 capsule at noon and 1 capsule in the evening. calcium 2022-0 Yes [id number] 250mg Take 1 Uni vers carbonate-v 3-15 tablet by ity of itamin D3 00:00: mouth in [place] [address] the Medical mg-3.125 morning. Branch mcg (125 unit) per tablet loperamide 2022-0 Yes [id number] 2mg Take 1 U nivers 2 mg 3-15 capsule by ity of capsule 00:00: mouth in [place] [address] the Medical morning Branch and 1 capsule at noon and 1 capsule in the evening. calcium 2022-0 Yes [id number] 250mg Take 1 Uni vers carbonate-v 3-15 tablet by ity of itamin D3 00:00: mouth in [place] [address] 00 the Medical mg-3.125 morning. Branch mcg (125 unit) per tablet loperamide 2022-0 Yes [id number] 2mg Take 1 U nivers 2 mg 3-15 capsule by ity of capsule 00:00: mouth in [place] [address] the [facility] morning Branch and 1 capsule at noon and 1 capsule in the evening. calcium 2022-0 Yes [id number] 250mg Take 1 Uni vers carbonate-v 3-15 tablet by ity of itamin D3 00:00: mouth in [place] [address] the Medical mg-3.125 morning. Branch mcg (125 unit) per tablet loperamide 2022-0 Yes [id number] 2mg Take 1 U nivers 2 mg 3-15 capsule by ity of capsule 00:00: mouth in [place] [address] the [facility] morning Branch and 1 capsule at noon and 1 capsule in the evening. calcium 2022-0 Yes [id number] 250mg Take 1 Uni vers carbonate-v 3-15 tablet by ity of itamin D3 00:00: mouth in [place] [address] the Medical mg-3.125 morning. Branch mcg (125 unit) per tablet loperamide 2022-0 Yes [id number] 2mg Take 1 U nivers 2 mg 3-15 capsule by ity of capsule 00:00: mouth in [place] [address] the [facility] morning [place] and 1 capsule at on and 1 capsule in the evening. calcium 2022-0 Yes [id number] 250mg Take 1 Uni vers carbonate-v 3-15 tablet by ity of itamin D3 00:00: mouth in [place] [address] the Medical mg-3.125 morning. Branch mcg (125 unit) per tablet loperamide 2022-0 Yes [id number] 2mg Take 1 U nivers 2 mg 3-15 capsule by ity of capsule 00:00: mouth in [place] [address] the [facility] morning Branch and 1 capsule at on and 1 capsule in the evening. calcium 2022-0 Yes [id number] 250mg Take 1 Uni vers carbonate-v 3-15 tablet by ity of itamin D3 00:00: mouth in [place] [address] the Medical mg-3.125 morning. Branch mcg (125 unit) per tablet calcium 2022-0 Yes [id number] 250mg Take 1 Uni vers carbonate-v 3-15 tablet by ity of itamin D3 00:00: mouth in [place] [address] the Medical mg-3.125 morning. Branch mcg (125 unit) per tablet calcium 2022-0 Yes [id number] 250mg Take 1 Uni vers carbonate-v 3-15 tablet by ity of itamin D3 00:00: [place] [address] the Medical mg-3.125 morning. Branch mcg (125 unit) per tablet calcium 2022-0 Yes [id number] 250mg Take 1 Uni vers carbonate-v 3-15 tablet by ity of itamin D3 00:00: [place] 00 the Medical mg-3.125 morning. Branch mcg (125 unit) per tablet calcium 2022-0 Yes [id number] 250mg Take 1 Uni vers carbonate-v 3-15 tablet by ity of itamin D3 00:00: [place] 00 the Medical mg-3.125 morning. Branch mcg (125 unit) per tablet calcium 2022-0 Yes [id number] 250mg Take 1 Uni vers carbonate-v 3-15 tablet by ity of itamin D3 00:00: [place] 00 the Medical mg-3.125 morning. Branch mcg (125 unit) per tablet calcium 2022-0 Yes [id number] 250mg Take 1 Uni vers carbonate-v 3-15 tablet by ity of itamin D3 00:00: [place] 00 the Medical mg-3.125 morning. Branch mcg (125 unit) per tablet calcium 2022-0 Yes [id number] 250mg Take 1 Uni vers carbonate-v 3-15 tablet by ity of itamin D3 00:00: [place] 00 the Medical mg-3.125 morning. Branch mcg (125 unit) per tablet calcium 2022-0 Yes [id number] 250mg Take 1 Uni vers carbonate-v 3-15 tablet by ity of itamin D3 00:00: [place] 00 the Medical mg-3.125 morning. Branch mcg (125 unit) per tablet calcium 2022-0 Yes [id number] 250mg Take 1 Uni vers carbonate-v 3-15 tablet by ity of itamin D3 00:00: [place] 00 the Medical mg-3.125 morning. Branch mcg (125 unit) per tablet loperamide 0 2022- No [id number] 2mg Take 1 [facility] 2 mg 3-15 -18 capsule by ity of capsule 00:00: 00:00 mouth in [place] 00 :00 the Medical morning Branch and 1 capsule at noon and 1 capsule in the evening. midodrine 2022- No [id number] 10mg Take 1 U nivers 10 mg 3-15 -15 tablet by ity of tablet 00:00: 00:00 mouth in [place] 00 :00 the Medical morning Branch and 1 tablet at noon and 1 tablet in the evening. loperamide 2022- No [id number] 4mg Take 2 Univers 2 mg 3-15 -15 capsules ity of capsule 00:00: 00:00 by mouth [place] 00 :00 in the Medical morning Branch and 2 capsules in the evening. psyllium 2022- No [id number] 1{packe Take 1 Univers husk 3.4 3-15 -14 t} Packet by ity o f gram oral 00:00: 00:00 mouth in [place] powder 00 :00 the Medical packet morning. [place] loperamide 2022- No [id number] 2mg Take 1 Univers 2 mg -15 -14 capsule by ity of capsule 00:00: 00:00 mouth [place] 00 :00 every Medical morning. [place] cyanocobala 2022- No [id number] 1000ug Take 1 mL Univers min 1,000 -15 14 by ity of mcg/mL 00:00: 00:00 Intramuscu [place] injection 00 :00 lar route Medic al in the morning. NaCl 0.9% 2022- No 1000mL at 200 Uni vers (NS) IV 3-14 -14 mL/hr, IV ity of infusion 22:30: 22:11 Infusion, [place] 1,000 mL 00 :00 ONCE, 1 Medical dose, On Branch Thu11/04/22 at 1730, Routine sodium 0 Yes 650mg 650 mg, Univers bicarbonate 3-14 Oral, TID, it y of (ANTACID 21:45: First dose [place] (SODIUM 00 thu Medical BICARBONATE 11/04/22 at Br anch )) tablet 1645, 650 mg Until Discontinu ed, Routine loperamide Yes 2mg 2 mg, Univer s (IMODIUM 3-14 Oral, ity of A-D) 16:48: Q4HPRN, [place] capsule 2 01 Starting Medica l mg on [facility] 11/04/22 at 1148, Until Discontinu ed, Routine, Diarrhea NaCl 0.9% 2022- No 1000mL at 200 Uni vers (NS) IV 11-04 mL/hr, IV ity of infusion 16:45: 19:36 Infusion, [place] 1,000 mL 00 :00 ONCE, 1 Medical dose, On [facility] 11/04/22 at 1145, Routine vitamin 2022-0 2022- No 1000ug 1,000 mcg, U nivers B-12 11-04 Oral, ity of (CYANOCOBAL 14:00: 16:02 DAILY, [place]) 00 :56 First dose Medical tablet on [facility] 1,000 mcg 11/04/22 at 0900, Until Discontinu ed, Routine midodrine 2022- No 5mg 5 mg, Univer s (PROAMATINE 11-04 Oral, TID, i ty of ) tablet 5 13:00: 11:20 First dose [place] mg 00 :10 on [facility] 11/04/22 at Branch 0800, Until Discontinu ed, Routine magnesium 2022- No 4g 4 g, IV Univ ers sulfate in 11-04 Piggyback, it y of water 4 13:00: 15:17 at 25 [place] gram/50 mL 00 :00 mL/hr Medical (8 %) IV Administer Branc h Piggyback 4 over 120 g Minutes, ONCE, 1 dose, On [facility] 11/04/22 at 0800, Routine sodium 2022-0 2022- No IV Univers bicarbonate 11-04 Infusion, it y of 75 mEq in 12:30: 15:59 CONTINUOUS [place] NaCl 0.45% 00 :06 , Starting Med ical (1/2NS) on [facility] 1,000 mL IV 11/04/22 at Solution 0730, Until Thu11/04/22 at 1059, 1,000 mL, at 200 mL/hr vitamin 2023-0 Yes [id number] 2000ug Take 2 Un piyush B-12 1,000 11-04 tablets by ity of mcg tablet 00:00: mouth in [place] 00 the Medical morning. [place] vitamin 3-0 Yes [id number] 1999ug Take 2 Un piyush B-12 1,000 3-14 tablets by ity of mcg tablet 00:00: mouth in [place] 00 the Medical morning. Branch vitamin 2023-0 Yes [id number] 1999ug Take 2 Un piyush B-12 1,000 3-14 tablets by ity of mcg tablet 00:00: mouth in [place] 00 the Medical morning. Branch vitamin 2023-0 Yes [id number] 1999ug Take 2 Un piyush B-12 1,000 3-14 tablets by ity of mcg tablet 00:00: mouth in [place] 00 the Medical morning. Branch vitamin 2023-0 Yes [id number] 1999ug Take 2 Un [place] B-12 1,000 3-14 tablets by ity of mcg tablet 00:00: mouth in [place] 00 the Medical morning. Branch vitamin 2023-0 Yes [id number] 1999ug Take 2 Un piyush B-12 1,000 3-14 tablets by ity of mcg tablet 00:00: mouth in [place] 00 the Medical morning. Branch vitamin 2023-0 Yes [id number] 1999ug Take 2 Un [place]yush B-12 1,000 3-14 tablets by ity of mcg tablet 00:00: mouth in [place] 00 the Medical morning. Branch vitamin 2023-0 Yes [id number] 1999ug Take 2 Un [place] B-12 1,000 3-14 tablets by ity of mcg tablet 00:00: mouth in [place] 00 the Medical morning. Branch vitamin 2023-0 Yes [id number] 1999ug Take 2 Un [place] B-12 1,000 3-14 tablets by ity of mcg tablet 00:00: mouth in [place] 00 the Medical morning. Branch vitamin 2023-0 Yes [id number] 1999ug Take 2 Un [place] B-12 1,000 3-14 tablets by ity of mcg tablet 00:00: mouth in [place] 00 the Medical morning. Branch vitamin 2023-0 Yes [id number] 1999ug Take 2 Un piyush B-12 1,000 3-14 tablets by ity of mcg tablet 00:00: mouth in [place] 00 the Medical morning. Branch vitamin 2023-0 Yes [id number] 1999ug Take 2 Un [place]yush B-12 1,000 3-14 tablets by ity of mcg tablet 00:00: mouth in [place] 00 the Medical morning. [place] vitamin 3-0 Yes [id number] 2000ug Take 2 Un piyush B-12 1,000 3-14 tablets by ity of mcg tablet 00:00: mouth in [place] 00 the Medical morning. Branch vitamin 3-0 Yes [id number] 2000ug Take 2 Un piyush B-12 1,000 3-14 tablets by ity of mcg tablet 00:00: mouth in [place] 00 the Medical morning. Branch vitamin 3-0 Yes [id number] 2000ug Take 2 Un piyush B-12 1,000 3-14 tablets by ity of mcg tablet 00:00: mouth in [place] 00 the Medical morning. [place] vitamin 3-0 Yes [id number] 2000ug Take 2 Un piyush B-12 1,000 3-14 tablets by ity of mcg tablet 00:00: mouth in [place] 00 the Medical morning. [place] vitamin 2022-0 Yes [id number] 2000ug Take 2 Un piyush B-12 1,000 3-14 tablets by ity of mcg tablet 00:00: mouth in [place] 00 the Medical morning. [place] midodrine 5 0 2022- No [id number] 5mg Take 1 Univers mg tablet 3-14 03-15 tablet by ity of 00:00: 00:00 mouth in [place] 00 :00 the Medical morning Branch and 1 tablet at noon and 1 tablet in the evening. loperamide 2022-0 2022- No [id number] 2mg Take 1 Univers 2 mg 3-14 03-15 capsule by ity of capsule 00:00: 00:00 mouth in [place] 00 :00 the Medical morning Branch and 1 capsule in the evening. psyllium 2022-0 2022- No [id number] 1{packe Take 1 Univers husk 3.4 3-14 [...] :00 ONCE, 1 Medical dose, On Branch 11/03/22 at 1745, Routine NaCl 0.9% 2022- No 1000mL at 150 Uni vers (NS) IV 11-03 mL/hr, IV ity of infusion 15:30: 19:36 Infusion, [place] 1,000 mL 00 :00 ONCE, 1 Medical dose, On Branch Thu11/03/22 at 1030, Routine calcium 0 Yes 1{tbl} 250 mg (1 Uni vers carbonate-v 11-03 tablet), ity of itamin D3 14:00: Oral, [place] (OSCAL-250 00 DAILY, Medical + D) 250 First dose Branc h mg-3.125 on Thu mcg (125 11/03/22 at unit) per 0900, tablet 250 Until mg Discontinu ed, Routine KCL Yes 20meq 20 mEq, Univers (KLOR-CON 11-03 Oral, ity of M20) tablet 14:00: DAILY, [place] 20 mEq 00 First dose Medical on Thu11/03/22 at 0900, Until Discontinu ed, Routine psyllium 2022- No 1{packe 1 Packet, [facility] husk 11-03 t} Oral, ity of (METAMUCIL 14:00: 19:07 DAILY, [place] (SUGAR 00 :06 First dose Medical FREE)) 3.4 on Thu gram oral 11/03/22 at powder 0900, packet 1 Until Packet Discontinu ed, Routine loperamide 2022- No 2mg 2 mg, Unive rs (IMODIUM 11-03 Oral, ity of A-D) 12:52: 16:49 Q4HPRN, [place] capsule 2 54 :00 Starting Medica l mg on Thu11/03/22 at 0752, Until 11/04/22 at 1149, Routine, Diarrhea NaCl 0.9% 2022- No 500mL at 999 Univ ers (NS) bolus 11-03 mL/hr, 500 it y of infusion 06:30: 06:00 mL, IV [place] 500 mL 00 :00 Piggyback, Medical ONCE, 1 Branch dose, On Thu11/03/22 at 0130, STAT sodium 2022- No IV Univers bicarbonate 3-12 03-13 Infusion, it y of 75 mEq in 23:30: 14:38 CONTINUOUS [place] NaCl 0.45% 00 :07 , Starting Med ical (1/2NS) on [place] Branch 1,000 mL IV 11/02/22 at Solution 1830, Until 11/03/22 at 0938, 1,000 mL, at 150 mL/hr enoxaparin 2022-0 Yes 30mg 30 mg, Unive rs (LOVENOX) 11-02 Subcutaneo ity of injection 22:00: us, DAILY, [place] 30 mg 00 First dose Medical (after Branch last modificati on) on [place] 11/02/22 at 1700, Until Discontinu ed, Routine lactated 2022- No 1000mL at 999 [facility] ers ringers IV 11-02-12 mL/hr, ity of infusion 19:00: 22:36 1,000 mL, [place] 1,000 mL 00 :15 IV Medical Infusion, Branch CONTINUOUS , Starting on [place] 11/02/22 at 1400, Until [place] 11/02/22 at 1736, Routine ondansetron 2022-0 Yes 4mg 4 mg, Slow Univers (ZOFRAN 11-02 IV Push, ity of (PF)) 17:04: [place], [place] injection 4 54 Starting Medi mariusz mg on [facility] 11/02/22 at 1204, Until Discontinu ed, Routine, Nausea and Vomiting (N/V) acetaminoph 2022-0 Yes 650mg 650 mg, Un piyush en 11-02 Oral, ity of (TYLENOL) 17:04: [place], [place] tablet 650 40 Starting Medic al mg on [facility] 11/02/22 at 1204, Until Discontinu ed, Routine, Pain (scale 1-3) lactated 0 2022- No 1000mL at 999 [facility] ers ringers IV 11-02-12 mL/hr, ity of infusion 14:45: 17:07 1,000 mL, [place] 1,000 mL 00 :00 Intravenou Medic al s, ONCE, 1 Branch dose, On [place] 11/02/22 at 0945, Routine NaCl 0.9% 0 2022- No 1000mL at 999 Uni vers (NS) bolus 3-12 03-12 mL/hr, ity of infusion 13:45: 14:35 1,000 mL, [place] 1,000 mL 00 :00 IV Medical Infusion, Branch ONCE, 1 dose, On 11/02/22 at 0845, JOÃO iopamidol 2022- No [id number] 80mL 80 mL, Univers (ISOVUE 10-20 Intravenou [...] Medical Infusion, Branch ONCE, 1 dose, On [place] 10/19/22 at 2030, JOÃO ondansetron 2022- No 4mg 4 mg, Slow Univers (ZOFRAN 10-20 IV Push, ity of (PF)) 01:45: 01:51 ONCE, 1 [place] injection 4 00 :00 dose, On Medi mariusz mg [place] Branch 10/19/22 at 1945, JOÃO morpHINE (4 2022- No 4mg 4 mg, Slow Univers mg/mL) 10-20 IV Push, ity of injection 4 01:45: 01:51 ONCE, 1 [place] mg 00 :00 dose, On Medical [place] Branch 10/19/22 at 1945, STAT ciprofloxac 2022-0 Yes [id number] 500mg Take 1 Univers in HCl 500 2-26 tablet by ity of mg tablet 00:00: mouth in the Medical morning Branch and 1 tablet in the evening. loperamide 2022-0 Yes [id number] 2mg Take 1 U nivers 2 mg 2-26 capsule by ity of capsule 00:00: mouth (two) Medical times Branch daily as needed for Diarrhea. ciprofloxac 2022-0 Yes [id number] 500mg Take 1 Univers in HCl 500 2-26 tablet by ity of mg tablet 00:00: mouth in the Medical morning Branch and 1 tablet in the evening. loperamide 2023-0 Yes [id number] 2mg Take 1 U nivers 2 mg 2-26 capsule by ity of capsule 00:00: mouth [place] ([facility]) Medical times Branch daily as needed for Diarrhea. ciprofloxac 2023-0 Yes [id number] 500mg Take 1 Univers in HCl 500 2-26 tablet by ity of mg tablet 00:00: mouth in [place] 00 the Medical morning Branch and 1 tablet in the evening. loperamide 2023-0 Yes [id number] 2mg Take 1 U nivers 2 mg 2-26 capsule by ity of capsule 00:00: mouth [place] ([facility]) Medical times [place] daily as needed for Diarrhea. ciprofloxac 2023-0 Yes [id number] 500mg Take 1 Univers in HCl 500 2-26 tablet by ity of mg tablet 00:00: mouth in [place] 00 the Medical morning Branch and 1 tablet in the evening. loperamide 3-0 Yes [id number] 2mg Take 1 U nivers 2 mg 2-26 capsule by ity of capsule 00:00: mouth [place] ([facility]) Medical times [place] daily as needed for Diarrhea. ciprofloxac 2023-0 2023- No [id number] 500mg Take 1 Univers in HCl 500 2-26 03-12 tablet by ity of mg tablet 00:00: 00:00 mouth in [place] 00 :00 the Medical morning Branch and 1 tablet in the evening. loperamide 2023-0 2023- No [id number] 2mg Take 1 Univers 2 mg 2-26 03-12 capsule by ity of capsule 00:00: 00:00 mouth 2 [place] 00 :[address] ([facility]) Medical times [place] daily as needed for Diarrhea. loperamide 2023-0 2023- No [id number] 2mg Take 1 Univers 2 mg 2-26 02-26 capsule by ity of capsule 00:00: 00:00 mouth 2 [place] 00 :[address]) Medical times Branch daily as needed for Diarrhea. ciprofloxac 2023-0 2023- No [id number] 500mg Take 1 Univers in HCl 500 2-26 02-26 tablet by ity of mg tablet 00:00: 00:00 mouth in [place] 00 :00 the Medical morning Branch and 1 tablet in the evening. Do all this for 7 days. ciprofloxac 2022- No [id number] 500mg Take 1 Univers in HCl 500 10-19 tablet by ity of mg tablet 00:00: 00:00 mouth in [place] 00 :00 the Medical morning Branch and 1 tablet in the evening. loperamide 2022- No [id number] 2mg Take 1 Univers 2 mg 10-19 [...] :00 dose, On Medi mariusz RTU IV Thu Branch Piggyback 1 05/21/22 at g 1030, Administer over 60 Minutes, 100 mL potassium 2021- No 15mmol 15 mmol, U nivers phosphate 05-21 IV ity of 15 mmol in 15:30: 18:54 Piggyback, [place] NaCl 0.9% 00 :00 ONCE, 1 Medical (NS) 150 mL dose, On Bran ch piggyback Thu05/21/22 at 1030, 150 mL NaCl 0.9% 0 Yes 1000mL at 50 Unive rs (NS) [...] on Thu Medical FREE)) 3.4 05/20/22 at [facility] gram oral 1999, powder Until packet 1 Discontinu Packet ed, Routine loperamide 2021- No 2mg 2 mg, Unive rs (IMODIUM 05-21 Oral, BID, ity of A-D) 01:00: 19:34 First dose [place] capsule 2 00 :32 on Thu Medical mg 05/20/22 at Branch 1999, Until Discontinu ed, Routine ferrous Yes [id number] 325mg Take 1 Un piyush sulfate 325 9-28 tablet by ity of mg (65 mg 00:00: mouth in [place] iron) 00 the Medical tablet morning Branch and 1 tablet at noon and 1 tablet in the evening. Take with meals. loperamide Yes [id number] 2mg Take 1 U nivers 2 mg 9-28 capsule by ity of capsule 00:00: mouth 2 (two) Medical times [place] daily as needed for Diarrhea (Increase ostomy output). ferrous Yes [id number] 325mg Take 1 Un piyush sulfate 325 9-28 tablet by ity of mg (65 mg 00:00: mouth in [place] iron) 00 the Medical tablet morning Branch and 1 tablet at noon and 1 tablet in the evening. Take with meals. loperamide Yes [id number] 2mg Take 1 U nivers 2 mg 9-28 capsule by ity of capsule 00:00: mouth 2 [place] 00 (two) Medical times [place] daily as needed for Diarrhea (Increase ostomy output). ferrous Yes [id number] 325mg Take 1 Un piyush sulfate 325 9-28 tablet by ity of mg (65 mg 00:00: mouth in [place] iron) 00 the Medical tablet morning Branch and 1 tablet at noon and 1 tablet in the evening. Take with meals. loperamide Yes [id number] 2mg Take 1 U nivers 2 mg 9-28 capsule by ity of capsule 00:00: mouth 2 [place] (two) Medical times Branch daily as needed for Diarrhea (Increase ostomy output). ferrous Yes [id number] 325mg Take 1 Un piyush sulfate 325 9-28 tablet by ity of mg (65 mg 00:00: [facility] Medical tablet morning Branch and 1 tablet at noon and 1 tablet in the evening. Take with meals. loperamide Yes [id number] 2mg Take 1 U nivers 2 mg 9-28 capsule by ity of capsule 00:00: mouth 2 [place] (two) Medical times [place] daily as needed for Diarrhea (Increase ostomy output). ferrous Yes [id number] 325mg Take 1 Un piyush sulfate 325 9-28 tablet by ity of mg (65 mg 00:00: mouth in [facility] s iron) 00 the Medical tablet morning Branch and 1 tablet at noon and 1 tablet in the evening. Take with meals. loperamide Yes [id number] 2mg Take 1 U nivers 2 mg 9-28 capsule by ity of capsule 00:00: mouth 2 [place] (two) Medical times [place] daily as needed for Diarrhea (Increase ostomy output). ferrous Yes [id number] 325mg Take 1 Un piyush sulfate 325 9-28 tablet by ity of mg (65 mg 00:00: mouth in [facility] the Medical tablet morning Branch and 1 tablet at noon and 1 tablet in the evening. Take with meals. loperamide Yes [id number] 2mg Take 1 U nivers 2 mg 9-28 capsule by ity of capsule 00:00: mouth 2 [place] (two) Medical times Branch daily as needed for Diarrhea (Increase ostomy output). ferrous 3- No [id number] 325mg Take 1 U nivers sulfate 325 9-28 03-12 tablet by it y of mg (65 mg 00:00: 00:00 mouth in [place] iron) 00 :00 the Medical tablet morning Branch and 1 tablet at noon and 1 tablet in the evening. Take with meals. loperamide 2022- No [id number] 2mg Take 1 Univers 2 mg 05-2112 capsule by ity of capsule 00:00: 00:00 mouth 2 [place] 00 :00 (two) [facility] times [place] daily as needed for Diarrhea (Increase ostomy output). sodium 2021- No [id number] 650mg Take 1 Uni vers bicarbonate 05-21 tablet by it y of 650 mg 00:00: 04:59 mouth in [place] tablet 00 :00 the Medical morning Branch and 1 tablet at noon and 1 tablet in the evening. Do all this for 7 days. KCL 20 mEq 2021- No [id number] 20meq Take 1 Univers tablet 05-21 tablet by ity of 00:00: 04:59 mouth in [place] 00 :00 the Medical morning [place] for 7 days. sodium 2021- No [id number] 650mg Take 1 Uni vers bicarbonate 05-21 tablet by it y of 650 mg 00:00: 04:59 mouth in [place] tablet 00 :00 the Medical morning Branch and 1 tablet at noon and 1 tablet in the evening. Do all this for 7 days. KCL 20 mEq 2021- No [id number] 20meq Take 1 Univers tablet 05-21 tablet by ity of 00:00: 04:59 mouth in [place] 00 :00 the [facility] morning [place] for 7 days. KCL 2021- No 40meq 40 mEq, Univers (KLOR-CON 05-20 Oral, ity of M20) tablet 21:00: 21:19 ONCE, 1 [place] 40 mEq 00 :00 dose, On [facility] 05/20/22 at 1600, Routine ferrous 2021- Yes 325mg 325 mg, Univer s sulfate 05-20 Oral, TID ity of tablet 325 17:00: MEALS, [place] mg 00 First dose Medical on [facility] 05/20/22 at 1200, Until Discontinu ed, Routine enoxaparin 2021- Yes 30mg 30 mg, Unive rs (LOVENOX) 05-20 Subcutaneo ity of injection 14:00: us, DAILY, [place] 30 mg 00 First dose Medical on [facility] Branch 05/20/22 at 0900, Until Discontinu ed, Routine sodium 2021- No 150meq IV Univers bicarbonate 05-20 Infusion, it y of 150 mEq in 14:00: 03:43 at 100 [place] D5W 1,000 00 :00 mL/hr, 150 Medi mariusz mL IV mEq, ONCE, Branch infusion 1 dose, On Thu05/20/22 at 0900, Routine iron 2021- No 300mg 300 mg, IV Unive rs sucrose 05-20 Infusion, ity of (VENOFER) 14:00: 17:39 ONCE, [place] 300 mg in 00 :00 Administer Medi mariusz NaCl 0.9% over 2.5 Branch (NS) 250 mL Hours, On infusion 05/20/22 at 0900, For 1 dose KCL 2021- No 40meq 40 mEq, Univers (KLOR-CON 05-20 Oral, ity of M20) tablet 14:00: 13:20 ONCE, 1 [place] 40 mEq 00 :00 dose, On Medical [facility] Branch 05/20/22 at 0900, Routine sodium 0 [...] Nausea and Vomiting (N/V) iopamidol 2021- No [id number] 65mL 65 mL, Univers (ISOVUE 05-20 Intravenou ity o f 370-500 mL) 04:15: 04:15 s, ONCE, 1 [place] injection 00 :00 dose, On Medica l [address] [facility] Branch 05/19/22 at 2315, Routine NaCl 0.9% 2021- No 1000mL at 999 Uni vers (NS) IV 05-20 mL/hr, ity of infusion 02:30: 07:11 Intravenou [place] 1,000 mL 00 :42 s, Medical CONTINUOUS Branch , Starting on Thu05/19/22 at 2130, Until Thu05/20/22 at 0211, Routine No known No No known [facility] rs medications 05-20 medication it y of 01:04: s [address] dicyclomine 2021- No 20mg 20 mg, Uni vers (BENTYL) [id number] Intramuscu ity of injection 05:45: 04:45 lar, [...] 2021-0 No No known Unive rs medications 8-18 medication it y of 00:06: s [address] No known 2021-0 No No known Unive rs medications -18 medication it y of 00:06: s [address] magnesium 2021-0 2021- No 4g 4 g, IV Univ ers sulfate in 04-08 Piggyback, it y of water 4 13:45: 14:14 ONCE, 1 [place] gram/50 mL 00 :00 dose, On Medic al (8 %) IV [facility] Piggyback 4 04/08/22 at g 0845, Routine [...] 1 last Branch tablet modificati on) on [place] 04/06/22 at 1200, Until Discontinu ed, Routine lactated 2021-0 202- No 1000mL at 100 Univ ers ringers IV 04-06 08-15 mL/hr, ity of infusion 15:00: 20:30 1,000 mL, [place] 1,000 mL 00 :32 IV Medical Infusion, Branch CONTINUOUS , Starting on [place] 04/06/22 at 1000, Until Thu04/07/22 at 1530, Routine magnesium 2021-0 202- No 6g 6 g, IV Univ ers sulfate 6 g 04-06 Piggyback, i ty of in NaCl 15:00: 18:10 ONCE, 1 [place] 0.9% (NS) 00 :00 dose, On Medica l [facility] 04/06/22 at 1000, Administer over 90 Minutes, 50 mL loperamide 0 Yes 4mg 4 mg, Univer s (IMODIUM 04-06 Oral, BID, ity o f A-D) 14:00: First dose [place] capsule 4 00 on [place] Medical mg 04/06/22 at Branch 0900, Until Discontinu ed, Routine loperamide No 4mg 4 mg, Unive rs (IMODIUM 04-06 Oral, ity of A-D) 12:30: 14:00 TIDPRN, 8 [place] capsule 4 00 :56 doses, Medical mg Starting Branch on [place] 04/06/22 at 0730, Until [place] 04/06/22 at 0900, Routine, Diarrhea NaCl 0.9% 2021- No 1000mL at 999 Uni vers (NS) bolus 04-06 mL/hr, ity of infusion 12:30: 11:38 1,000 mL, Javi as 1,000 mL 00 :51 IV Medical Piggyback, Branch ONCE, 1 dose, On [place] 04/06/22 at 0730, STAT magnesium 2021- No 2g 2 g, IV Univ ers sulfate in 04-06 Piggyback, it y of water 2 11:30: 11:37 Administer Javi as gram/50 mL 00 :00 over 60 Medica l (4 %) Minutes, Branch infusion 2 ONCE, 1 g dose, On [place] 04/06/22 at 0630, Routine midodrine 2021- No 10mg 10 mg, Unive rs (PROAMATINE 04-06 Oral, ity of ) tablet 10 05:45: 05:16 [place]CE, 1 [place] 00 :[place] dose, On Medical [facility] 04/06/22 at 0045, Routine NaCl 0.9% [...] at 1400, Until Discontinu ed, Routine psyllium Yes 1{packe 1 Packet, U nivers husk 04-04 t} Oral, ity of (METAMUCIL 21:00: DAILY, [place] (SUGAR 00 First dose Medical FREE)) 3.4 [...] No 100mg 100 mg, Univ ers (COLACE) 8-11 08-14 Oral, BID, ity of capsule 100 01:00: 03:30 First dose [place] mg 00 :00 on Thu Medical 04/02/22 at Branch 1999, Until Discontinu ed, Routine heparin No 5000U 5,000 Univers (porcine) 04-03 08-14 [...] No 50ug 50 mcg, Un piyush (SUBLIMAZE 04-0210 Slow IV ity o f (PF)) 22:45: 21:59 Push, [place] injection 00 :00 ONCE, 1 Medical 50 mcg dose, On [facility] Thu04/02/22 at 1745, Routine ondansetron Yes 4mg 4 mg, Slow Univers (ZOFRAN 8-10 IV Push, ity of (PF)) 22:06: Q6HPRN, [place] injection 4 55 Starting Medi mariusz mg on Thu [facility] 04/02/22 at 1706, Until Discontinu ed, Routine, Nausea and Vomiting (N/V) acetaminoph Yes 650mg 650 mg, Un piyush en 8-10 Oral, ity of (TYLENOL) 22:06: Q6HPRN, [place] tablet 650 46 Starting Medic al mg [...] medication it y of 18:45: s [address] ferrous 2021- No Altered 325mg QD [...] tablet intestinal 60 days ostomy ferrous 2021- [id number] 325mg QD Take 1 Momin rris sulfate 325 02-20- tablet by He alth mg (65 mg 00:00: 23:59 mouth iron) 00 :00 daily for tablet 60 days ferrous [id number] 325mg QD Take 1 Momin rris sulfate 325 02-20- tablet by He alth mg (65 mg [...] intestinal ostomy loperamide 2021- No Altered 4mg Q.58846121 Take 2 Lynne (IMODIUM) 2 02-20 bowel [id number] capsules Health mg capsule 00:00: 23:59 elimination [...] intestinal ostomy loperamide 2021- No Altered 4mg Q.32037881 Take 2 Lynne (IMODIUM) 2 02-20- bowel [id number] capsules Health mg capsule 00:00: 23:59 elimination [...] intestinal ostomy loperamide 2021- No Altered 4mg Q.18544420 Take 2 Lynne (IMODIUM) 2 02-20 bowel [id number] capsules Health mg capsule 00:00: 23:59 elimination [...] intestinal ostomy loperamide 2021- No Altered 4mg Q.72734553 Take 2 Lynne (IMODIUM) 2 02-20 bowel [id number] capsules Health mg capsule 00:00: 23:59 elimination [...] intestinal ostomy loperamide 2021- No Altered 4mg Q.50603296 Take 2 Lynne (IMODIUM) 2 6-03-22 bowel [id number] capsules Health mg capsule 00:00: 23:59 elimination [...] intestinal ostomy loperamide 2021- No Altered 4mg Q.97870666 Take 2 Lynne (IMODIUM) 2 02-20 bowel [id number] capsules Health mg capsule 00:00: 23:59 elimination [...] intestinal ostomy loperamide 2021- No Altered 4mg Q.69856526 Take 2 Lynne (IMODIUM) 2 02-20 bowel [id number] capsules Health mg capsule 00:00: 23:59 elimination [...] (METAMUCIL) 02-20 bowel t} Packet by [facility] 6 gram PwPk 00:00: 23:59 elimination mouth 00 :00 due to intestinal ostomy loperamide 2021- No Altered 4mg Q.86471077 Take 2 Lynne (IMODIUM) 2 02-20 bowel [id number] capsules Health mg capsule 00:00: 23:59 elimination 3D by mouth 3 00 :00 due to times intestinal daily ostomy (before meals) for 30 days tamsulosin 2021- No Acute .4mg Take 1 Compa ris (FLOMAX) 02-20 kidney capsule by He alth 0.4 mg 00:00: 23:59 injury mouth capsule 00 :00 every evening for 30 days psyllium 2021- No [id number] 1{packe Take 1 Lynne (METAMUCIL) 02-20 t} Packet by [facility] 6 gram PwPk 00:00: 23:59 mouth 00 :00 loperamide 2021- No [id number] 4mg Q.63112174 Take 2 Lynne (IMODIUM) 2 02-20 [id number] capsules Health mg capsule 00:00: 23:59 3D by mouth 3 00 :00 times daily (before meals) for 30 days tamsulosin 2021- No [id number] .4mg Take 1 Lynne (FLOMAX) 02-20 [id number] capsule by He alth 0.4 mg 00:00: 23:59 mouth capsule 00 :00 every evening for 30 days psyllium 2021- No [id number] 1{packe Take 1 Lynne (METAMUCIL) 02-20 t} Packet by [facility] 6 gram PwPk 00:00: 23:59 mouth 00 :00 loperamide 2021- No [id number] 4mg Q.39007298 Take 2 Lynne (IMODIUM) 2 02-20 [id number] capsules Health mg capsule 00:00: 23:59 3D by mouth 3 00 :00 times daily (before meals) for 30 days tamsulosin 2021- No [id number] .4mg Take 1 Lynne (FLOMAX) 02-20 [id number] capsule by He alth 0.4 mg 00:00: 23:59 mouth capsule 00 :00 every evening for 30 days psyllium 2021- No Altered 1{packe Take 1 Lynne (METAMUCIL) 02-20 bowel t} Packet by [facility]alt 6 gram PwPk 00:00: 23:59 elimination mouth 00 :00 due to intestinal ostomy loperamide 2021- No Altered 4mg Q.17421203 Take 2 Lynne (IMODIUM) 2 02-20 bowel [id number] capsules Health mg capsule 00:00: 23:59 elimination [...] intestinal ostomy loperamide 2021- No Altered 4mg Q.10023051 Take 2 Lynne (IMODIUM) 2 02-20 bowel [id number] capsules Health mg capsule 00:00: 23:59 elimination [...] intestinal ostomy loperamide 2021- No Altered 4mg Q.94307455 Take 2 Lynne (IMODIUM) 2 02-20 bowel [id number] capsules Health mg capsule 00:00: 23:59 elimination [...] intestinal ostomy loperamide 2021- No Altered 4mg Q.09150939 Take 2 Lynne (IMODIUM) 2 02-20 bowel [id number] capsules Health mg capsule 00:00: 23:59 elimination [...] intestinal ostomy loperamide 2021- No Altered 4mg Q.68633188 Take 2 Lynne (IMODIUM) 2 02-20 bowel [id number] capsules Health mg capsule 00:00: 23:59 elimination [...] intestinal ostomy loperamide 2021- No Altered 4mg Q.56598040 Take 2 Lynne (IMODIUM) 2 02-20 bowel [id number] capsules Health mg capsule 00:00: 23:59 elimination [...] intestinal ostomy loperamide 2021- No Altered 4mg Q.91677235 Take 2 Lynne (IMODIUM) 2 02-20 bowel [id number] capsules Health mg capsule 00:00: 23:59 elimination [...] intestinal ostomy loperamide 2021- No Altered 4mg Q.95228420 Take 2 Lynne (IMODIUM) 2 02-20 bowel [id number] capsules Health mg capsule 00:00: 23:59 elimination [...] intestinal ostomy loperamide 2021- No Altered 4mg Q.91077412 Take 2 Lynne (IMODIUM) 2 02-2030 bowel [id number] capsules Health mg capsule 00:00: 23:59 elimination [...] intestinal ostomy loperamide 2021- No Altered 4mg Q.47286969 Take 2 Lynne (IMODIUM) 2 02-2030 bowel [id number] capsules Health mg capsule 00:00: 23:59 elimination [...] intestinal ostomy loperamide 2021- No Altered 4mg Q.46555326 Take 2 Lynne (IMODIUM) 2 02-20-30 bowel [id number] capsules Health mg capsule 00:00: 23:59 elimination [...] intestinal ostomy loperamide 2021- No Altered 4mg Q.02977306 Take 2 Lynne (IMODIUM) 2 02-2030 bowel [id number] capsules Health mg capsule 00:00: 23:59 elimination [...] intestinal ostomy loperamide 2021- No Altered 4mg Q.65342322 Take 2 Lynne (IMODIUM) 2 02-20-30 bowel [id number] capsules Health mg capsule 00:00: 23:59 elimination [...] intestinal ostomy loperamide 2021- No Altered 4mg Q.16869950 Take 2 Lynne (IMODIUM) 2 02-20-30 bowel [id number] capsules Health mg capsule 00:00: 23:59 elimination [...] intestinal ostomy loperamide 2021- No Altered 4mg Q.01209638 Take 2 Lynne (IMODIUM) 2 02-20-30 bowel [id number] capsules Health mg capsule 00:00: 23:59 elimination [...] intestinal ostomy loperamide 2021- No Altered 4mg Q.28990016 Take 2 Lynne (IMODIUM) 2 - 07-30 bowel [id number] capsules Health mg capsule 00:00: 23:59 elimination [...] dose on Thu03/20/22 at 0900, STAT ferrous No 325mg QD 325 mg Lynne sulfate 325 02-19 (4.59 Health mg (65 mg 09:00: 13:55 mg/kg), iron) 00 :54 Oral, tablet 325 DAILY, 30 mg doses, First dose on Thu02/19/22 at 0900, Last dose on Thu03/20/22 at 0900, STAT cyanocobala 2021- No 1000ug QD 1,000 mcg Lynne min [...] at 0900, STAT loperamide 2021- No 4mg Q.40811697 4 mg Lynne (IMODIUM) 02-19 [id number] (0.0565 Health capsule 4 07:30: 13:55 3D [...] dose on Thu03/20/22 at 0900, STAT saline No 10mL 10 mL Lynne flush 10 mL 02-18 (0.141 Healt h 21:17: 13:55 mL/kg), 13 :54 Midline, PRN, Starting on Thu02/18/22 at 2117, Until Thu02/20/22 at 1355, [facility], STAT tamsulosin No .4mg 0.4 mg Alex is (FLOMAX) 02-18 (0.89896 Health capsule 0.4 21:00: 13:55 mg/kg), mg 00 :54 Oral, EVERY EVENING, 30 doses, First dose on Thu02/18/22 at 2100, Last dose on Thu03/19/22 at 2100, STAT psyllium No 1{packe Q.5D 1 Packet, Lynne (METAMUCIL) 02-18 t} Oral, 2 Heal th oral packet 21:00: 13:55 TIMES 1 Packet 00 :54 DAILY, 60 doses, First dose on Thu02/18/22 at 2100, Last dose on Thu03/20/22 at 0900, STAT lactated No at 150 Lynne Ringers 02-18 mL/hr, Health infusion 20:25: 11:22 Intravenou 00 :41 s, CONTINUOUS , Starting on Thu02/18/22 at 202, Until Thu02/20/22 at 1122 acetaminoph No 650mg 650 mg Momin rris en 02-18 (9.18 Health (TYLENOL) 20:23: 13:55 mg/kg), tablet 650 55 :54 Oral, mg EVERY 6 HOURS PRN, Starting on Thu02/18/22 at 2023, Until [place] 02/20/22 at 1355, Mild pain (1-3), Headache, STAT lactated 2021- No Intravenou Momin rris Ringers 02-18 06-28 s, STAT Health 1,000 mL 19:07: 21:00 infusion - 00 :00 bolus lactated 2021- No Intravenou Momin rris Ringers 02-18-28 s, STAT Health 1,000 mL 14:11: 19:00 [...] liquid 00 times daily nutritional 2022-0 Yes [id number] 1{packa Take 1 Lynne supplemment 6-21 4102 ge} Package by Misael bertrand (BOOST) 00:00: mouth 3 oral liquid 00 times daily nutritional 2021-0 Yes [id number] 1{packa Take 1 Lynne supplemment 6-21 4102 ge} Package by Misael bertrand (BOOST) 00:00: mouth 3 oral liquid 00 times daily nutritional 2021-0 Yes [id number] 1{packa Take 1 Lynne supplemment 6-21 4102 [...] due to intestinal ostomy psyllium 2021- No [id number] 1{packe Take 1 Lynne (METAMUCIL) 02-11 t} Packet by [facility] 6 gram PwPk 00:00: 00:00 mouth 00 :00 psyllium 2021- No Altered 1{packe Take 1 Lyn[place] (METAMUCIL) 02-1130 bowel t} Packet by [facility] 6 gram PwPk 00:00: 00:00 elimination mouth 00 :00 due to intestinal ostomy psyllium 2021- No Altered 1{packe Take 1 Lynne (METAMUCIL) 02-11 bowel t} Packet by [facility] 6 gram PwPk 00:00: 00:00 elimination mouth 00 :00 due to intestinal ostomy psyllium 2021- No Altered 1{packe Take 1 Lynne (METAMUCIL) 02-11 bowel t} Packet by [facility] 6 gram PwPk 00:00: 00:00 elimination mouth 00 :00 due to intestinal ostomy psyllium 2021- No Altered 1{packe Take 1 Lynne (METAMUCIL) 02-11 bowel t} Packet by [facility] 6 gram PwPk 00:00: 00:00 elimination mouth 00 :00 due to intestinal ostomy psyllium 2021- No Altered 1{packe Take 1 Lynne (METAMUCIL) 02-11 bowel t} Packet by [facility] 6 gram PwPk 00:00: 00:00 elimination mouth 00 :00 due to intestinal ostomy psyllium 2021- No Altered 1{packe Take 1 Lyn[place] (METAMUCIL) 02-1130 bowel t} Packet by [facility] 6 gram PwPk 00:00: 00:00 elimination mouth 00 :00 due to intestinal ostomy psyllium 2021- No Altered 1{packe Take 1 Lynne (METAMUCIL) 02-1130 bowel t} Packet by [facility] 6 gram PwPk 00:00: 00:00 elimination mouth 00 :00 due to intestinal ostomy psyllium 2021- No Altered 1{packe Take 1 Lyn[place] (METAMUCIL) 02-1130 bowel t} Packet by [facility] 6 gram PwPk 00:00: 00:00 elimination mouth 00 :00 due to intestinal ostomy psyllium 2021- No Altered 1{packe Take 1 Lyn[place] (METAMUCIL) 02-1130 bowel t} Packet by [facility] 6 gram PwPk 00:00: 00:00 elimination mouth 00 :00 due to intestinal ostomy psyllium 2021- No Altered 1{packe Take 1 Lyn[place] (METAMUCIL) 02-1130 bowel t} Packet by [facility] 6 gram PwPk 00:00: 00:00 elimination mouth 00 :00 due to intestinal ostomy psyllium 2021- No Altered 1{packe Take 1 [place] (METAMUCIL) 02-1130 bowel t} Packet by [facility] 6 gram PwPk 00:00: 00:00 elimination mouth 00 :00 due to intestinal ostomy psyllium 2021- No Altered 1{packe Take 1 [place] (METAMUCIL) 02-1130 bowel t} Packet by [facility] 6 gram PwPk 00:00: 00:00 elimination mouth 00 :00 due to intestinal ostomy psyllium 2021- No Altered 1{packe Take 1 [place] (METAMUCIL) 02-1130 bowel t} Packet by [facility] 6 gram PwPk 00:00: 00:00 elimination mouth 00 :00 due to intestinal ostomy psyllium 2021- No Altered 1{packe Take 1 [place] (METAMUCIL) 02-1130 bowel t} Packet by [facility] 6 gram PwPk 00:00: 00:00 elimination mouth 00 :00 due to intestinal ostomy psyllium 2021- No Altered 1{packe Take 1 [place] (METAMUCIL) 02-1130 bowel t} Packet by [facility] 6 gram PwPk 00:00: 00:00 elimination mouth 00 :00 due to intestinal ostomy psyllium 2021- No Altered 1{packe Take 1 [place] (METAMUCIL) 02-1130 bowel t} Packet by [facility] 6 gram PwPk 00:00: 00:00 elimination mouth 00 :00 due to intestinal ostomy lactated 2021- No at 125 Lynne Ringers 6 06-20 mL/hr, Health infusion 09:30: 09:29 Intravenou 00 :00 s, CONTINUOUS , Starting on 02/09/22 at 0930, Until 02/10/22 at 0929 lactated 2021- No at 125 Lynne Ringers 02-08 06-19 mL/hr, Health infusion 10:30: 10:29 Intravenou 00 [...] mg DAILY, 30 doses, First dose on 02/08/22 at 0900, Last dose on 03/09/22 at 0900, STAT tamsulosin No .4mg 0.4 mg Alex is (FLOMAX) 02-07 (0.21590 Health capsule 0.4 21:00: 15:22 mg/kg), mg 00 :37 Oral, EVERY EVENING, 30 doses, First dose on Thu02/07/22 at 2100, Last dose on Thu03/08/22 at 2100, STAT lactated 2021- No at 125 Ava Ringers 02-0718 mL/hr, Health infusion 18:42: 10:28 Intravenou 00 :44 s, CONTINUOUS , Starting on Thu02/07/22 at 1842, Until Thu02/08/22 at 1028 psyllium 2021- No 1{packe Q.90700798 1 Packet, Lynne (METAMUCIL) 02-07 t} [id number] Oral, 3 Health oral packet 18:00: 15:22 3D TIMES 1 Packet 00 :37 DAILY BEFORE MEALS, 90 doses, First dose on Thu02/07/22 at 1800, Last dose on Thu03/09/22 at 1130, STAT loperamide 2021- No 4mg Q.86866281 4 mg Lynne (IMODIUM) 02-07 [id number] (0.0533 Health capsule 4 17:44: 15:22 3D [...] STAT sodium 2021- No 2000mL at 999 Ava chloride 02-07 mL/hr, Health 0.9 % 13:57: 14:15 Intravenou infusion 00 :00 s, ONCE, 1 2,000 mL dose, On Thu02/07/22 at 1357 ascorbic 2021- No Altered 250mg QD Take 1 Momin rris acid, 01-21-30 bowel tablet by [facility] vitamin C, 00:00: 23:59 elimination mouth 250 mg 00 :00 due to daily for tablet intestinal 60 days ostomy magnesium 2021- No Altered 800mg Q.5D Take 2 H arris oxide 01-21-30 bowel tablets by [facility] (MAG-OX) 00:00: 23:59 elimination mouth 2 400 mg 00 :00 due to times (241.3 mg intestinal daily for magnesium) ostomy 60 days tablet multivitami 2021- No Altered 1{tbl} QD Take 1 Lynne n with 01-21-30 bowel tablet by [facility] folic acid 00:00: 23:59 elimination mouth (THERA) 400 00 :00 due to daily for mcg tablet intestinal 60 days ostomy ascorbic 2021- No Altered 250mg QD Take 1 Momin rris acid, 01-21-30 bowel tablet by [facility] vitamin C, 00:00: 23:59 elimination mouth 250 mg 00 :00 due to daily for tablet intestinal 60 days ostomy magnesium 2021- No Altered 800mg Q.5D Take 2 H arris oxide 01-21-30 bowel tablets by [employer] (MAG-OX) 00:00: 23:59 elimination mouth 2 400 mg 00 :00 due to times (241.3 mg intestinal daily for magnesium) ostomy 60 days tablet multivitami 2021- No Altered 1{tbl} QD Take 1 Lynne n with 01-21-30 bowel tablet by [facility] folic acid 00:00: 23:59 elimination mouth (THERA) 400 00 :00 due to daily for mcg tablet intestinal 60 days ostomy ascorbic 2021- No Altered 250mg QD Take 1 Momin rris acid, 01-21-30 bowel tablet by [facility] vitamin C, 00:00: 23:59 elimination mouth 250 mg 00 :00 due to daily for tablet intestinal 60 days ostomy magnesium 2021- No Altered 800mg Q.5D Take 2 H arris oxide 5-23 03-30 bowel tablets by [facility] (MAG-OX) 00:00: 23:59 elimination mouth 2 400 [...] H arris oxide 01-21- bowel tablets by [employer] (MAG-OX) 00:00: 23:59 elimination mouth 2 400 [...] rris acid, 5-31 07-30 bowel tablet by [facility] vitamin C, 00:00: 23:59 elimination mouth 250 mg 00 :00 due to daily for tablet intestinal 60 days ostomy magnesium 2021- No Altered 800mg Q.5D Take 2 H arris oxide 01-21 bowel tablets by [facility] (MAG-OX) 00:00: 23:59 elimination mouth 2 400 mg 00 :00 due to times (241.3 mg intestinal daily for magnesium) ostomy 60 days tablet multivitami 2021- No Altered 1{tbl} QD Take 1 Lynne n with 01-21 bowel tablet by [facility] folic acid 00:00: 23:59 elimination mouth (THERA) 400 00 :00 due to daily for mcg tablet intestinal 60 days ostomy ascorbic 2021- No Altered 250mg QD Take 1 Momin rris acid, 01-21 bowel tablet by [facility] vitamin C, 00:00: 23:59 elimination mouth 250 mg 00 :00 due to daily for tablet intestinal 60 days ostomy magnesium 2021- No Altered 800mg Q.5D Take 2 H arris oxide 01-21 bowel tablets by [facility] (MAG-OX) 00:00: 23:59 elimination mouth 2 400 mg 00 :00 due to times (241.3 mg intestinal daily for magnesium) ostomy 60 days tablet multivitami 2021- No Altered 1{tbl} QD Take 1 Lynne n with 01-21 bowel tablet by [facility] folic acid 00:00: 23:59 elimination mouth (THERA) 400 00 :00 due to daily for mcg tablet intestinal 60 days ostomy ascorbic 2021- No Altered 250mg QD Take 1 Momin rris acid, 01-21 bowel tablet by [facility] vitamin C, 00:00: 23:59 elimination mouth 250 mg 00 :00 due to daily for tablet intestinal 60 days ostomy magnesium 2021- No Altered 800mg Q.5D Take 2 H arris oxide 01-21 bowel tablets by [facility] (MAG-OX) 00:00: 23:59 elimination mouth 2 400 mg 00 :00 due to times (241.3 mg intestinal daily for magnesium) ostomy 60 days tablet multivitami 2021- No Altered 1{tbl} QD Take 1 Lynne n with 01-21-30 bowel tablet by [facility] folic acid 00:00: 23:59 elimination mouth (THERA) 400 00 :00 due to daily for mcg tablet intestinal 60 days ostomy ascorbic 2021- No [id number] 250mg QD Take 1 H arris acid, 01-21-30 tablet by [facility] vitamin C, 00:00: 23:59 mouth 250 mg 00 :00 daily for tablet 60 days magnesium 2021- No [id number] 800mg Q.5D Take 2 Lynne oxide 01-21-30 tablets by [facility] ([facility]) 00:00: 23:59 mouth 2 400 mg 00 :00 times (241.3 mg daily for magnesium) 60 days tablet multivitami 2021- No [id number] 1{tbl} QD Take 1 Lynne n with 01-21-30 tablet by [facility] folic acid 00:00: 23:59 mouth (THERA) 400 00 :00 daily for mcg tablet 60 days ascorbic 2021- No [id number] 250mg QD Take 1 H arris acid, 01-21-30 tablet by [facility] vitamin C, 00:00: 23:59 mouth 250 mg 00 :00 daily for tablet 60 days magnesium 2021- No [id number] 800mg Q.5D Take 2 Lynne oxide 01-21-30 tablets by [facility] ([facility]) 00:00: 23:59 mouth 2 400 mg 00 :00 times (241.3 mg daily for magnesium) 60 days tablet multivitami 2021- No [id number] 1{tbl} QD Take 1 Lynne n with 01-21-30 tablet by Health folic acid 00:00: 23:59 mouth (THERA) 400 00 :00 daily for mcg tablet 60 days ascorbic 2021- No [id number] 250mg QD Take 1 H arris acid, 01-21-30 tablet by [facility] vitamin C, 00:00: 23:59 mouth 250 mg 00 :00 daily for tablet 60 days magnesium 2021- No [id number] 800mg Q.5D Take 2 Lynne oxide 5- 07-30 tablets by [facility] ([facility]) 00:00: 23:59 mouth 2 400 mg 00 :00 times (241.3 mg daily for magnesium) 60 days tablet multivitami 2021- No [id number] 1{tbl} QD Take 1 Lynne n with [...] arris oxide 5- 07-30 bowel tablets by [employer] (MAG-OX) 00:00: 23:59 elimination mouth 2 400 [...] rris acid, 5-31 07-30 bowel tablet by [facility] vitamin C, 00:00: 23:59 elimination mouth 250 [...] rris acid, - 07-30 bowel tablet by [facility] vitamin C, 00:00: 23:59 elimination mouth 250 [...] rris acid, -23 03-30 bowel tablet by [facility] vitamin C, 00:00: 23:59 elimination mouth 250 [...] rris acid, -23 03-30 bowel tablet by [facility] vitamin C, 00:00: 23:59 elimination mouth 250 [...] rris acid, 5- 07-30 bowel tablet by [facility] vitamin C, 00:00: 23:59 elimination mouth 250 mg 00 :00 due to daily for tablet intestinal 60 days ostomy magnesium 2021-2021- No Altered 800mg Q.5D Take 2 H arris oxide 5- 07-30 bowel tablets by [facility] (MAG-OX) 00:00: 23:59 elimination mouth 2 400 [...] days ostomy loperamide 2021- No Altered 4mg Q.20925178 Take 2 Lynne (IMODIUM) 2 01-21 bowel [id number] capsules Health mg capsule 00:00: 00:00 elimination [...] days ostomy loperamide 2021- No Altered 4mg Q.81899394 Take 2 Lynne (IMODIUM) 2 01-21-30 bowel [id number] capsules Health mg capsule 00:00: 00:00 elimination [...] days ostomy loperamide 2021- No Altered 4mg Q.96556018 Take 2 Lynne (IMODIUM) 2 01-21-30 bowel [id number] capsules Health mg capsule 00:00: 00:00 elimination [...] days ostomy loperamide 2021- No Altered 4mg Q.22314479 Take 2 Lynne (IMODIUM) 2 01-21- bowel [id number] capsules Health mg capsule 00:00: 00:00 elimination [...] days ostomy loperamide 2021- No Altered 4mg Q.73717620 Take 2 Lynne (IMODIUM) 2 01-21-30 bowel [id number] capsules Health mg capsule 00:00: 00:00 elimination [...] days ostomy loperamide 2021- No Altered 4mg Q.57568887 Take 2 Lynne (IMODIUM) 2 01-21-30 bowel [id number] capsules Health mg capsule 00:00: 00:00 elimination [...] days ostomy loperamide 2021- No Altered 4mg Q.53896730 Take 2 Lynne (IMODIUM) 2 01-21-30 bowel [id number] capsules Health mg capsule 00:00: 00:00 elimination [...] days ostomy loperamide 2021- No Altered 4mg Q.54177101 Take 2 Lynne (IMODIUM) 2 01-21 bowel [id number] capsules Health mg capsule 00:00: 00:00 elimination 3D by mouth 3 00 :00 due to times intestinal daily ostomy (before meals) for 30 days tamsulosin 2021- No [id number] .4mg Take 1 Lynne (FLOMAX) 01-21 [id number] capsule by He alth 0.4 mg 00:00: 00:00 mouth capsule 00 :00 every evening for 30 days ferrous 2021- No [id number] 325mg QD Take 1 Momin rris sulfate 325 01-21 tablet by He alth mg (65 mg 00:00: 00:00 mouth iron) 00 :00 daily for tablet 60 days loperamide 2021- No [id number] 4mg Q.04643549 Take 2 Lynne (IMODIUM) 2 01-21 [id number] capsules Health mg capsule 00:00: 00:00 3D [...] days ostomy loperamide 2021- No Altered 4mg Q.60101046 Take 2 Lynne (IMODIUM) 2 01-21 bowel [id number] capsules Health mg capsule 00:00: 00:00 elimination [...] days ostomy loperamide 2021- No Altered 4mg Q.83180725 Take 2 Lynne (IMODIUM) 2 01-21-30 bowel [id number] capsules Health mg capsule 00:00: 00:00 elimination [...] days ostomy loperamide 2021- No Altered 4mg Q.76326526 Take 2 Lynne (IMODIUM) 2 01-21- bowel [id number] capsules Health mg capsule 00:00: 00:00 elimination [...] days ostomy loperamide 2021- No Altered 4mg Q.91882875 Take 2 Lynne (IMODIUM) 2 01-21-30 bowel [id number] capsules Health mg capsule 00:00: 00:00 elimination [...] days ostomy loperamide 2021- No Altered 4mg Q.35974496 Take 2 Lynne (IMODIUM) 2 01-21 bowel [id number] capsules Health mg capsule 00:00: 00:00 elimination [...] days ostomy loperamide 2021- No Altered 4mg Q.32780762 Take 2 Lynne (IMODIUM) 2 01-2130 bowel [id number] capsules Health mg capsule 00:00: 00:00 elimination [...] 60 days ostomy loperamide No Altered 4mg Q.12709352 Take 2 Lynne (IMODIUM) 2 01-21 bowel [id number] capsules Health mg capsule 00:00: 00:00 elimination [...] days ostomy loperamide 2021- No Altered 4mg Q.83387227 Take 2 Lynne (IMODIUM) 2 01-21 bowel [id number] capsules Health mg capsule 00:00: 00:00 elimination [...] days ostomy loperamide 2021- No Altered 4mg Q.74923401 Take 2 Lynne (IMODIUM) 2 01-21 bowel [id number] capsules Health mg capsule 00:00: 00:00 elimination [...] days ostomy loperamide 2021- No Altered 4mg Q.37164771 Take 2 Lynne (IMODIUM) 2 01-21 bowel [id number] capsules Health mg capsule 00:00: 00:00 elimination [...] days ostomy loperamide 2021- No Altered 4mg Q.27616417 Take 2 [place] (IMODIUM) 2 01-21 bowel [id number] capsules Health mg capsule 00:00: 00:00 elimination [...] days ostomy loperamide 2021- No Altered 4mg Q.19094183 Take 2 [place] (IMODIUM) 2 01-21 bowel [id number] capsules Health mg capsule 00:00: 00:00 elimination [...] 60 days ostomy loperamide No Altered 4mg Q.58051267 Take 2 [place] (IMODIUM) 2 01-21 bowel [id number] capsules Health mg capsule 00:00: 00:00 elimination [...] days ostomy loperamide 2021- No Altered 4mg Q.71130464 Take 2 [place] (IMODIUM) 2 01-21 bowel [id number] capsules Health mg capsule 00:00: 00:00 elimination [...] days ostomy loperamide 2021- No Altered 4mg Q.22565628 Take 2 [place] (IMODIUM) 2 01-21 bowel [id number] capsules Health mg capsule 00:00: 00:00 elimination [...] 60 days ostomy loperamide No Altered 4mg Q.75652622 Take 2 [place] (IMODIUM) 2 01-21 bowel [id number] capsules Health mg capsule 00:00: 00:00 elimination 3D by mouth 3 00 :00 due to times intestinal daily ostomy (before meals) for 30 days psyllium 2021- No Altered 1{packe Q.79584471 Take 1 [place] (METAMUCIL) 01-21 bowel t} [id number] Packet by [employer] 6 gram PwPk 00:00: 00:00 elimination 3D mouth 3 00 :00 due to times intestinal daily ostomy (before meals) for 90 days psyllium 2021- No Altered 1{packe Q.91211952 Take 1 [place] (METAMUCIL) 01-21 bowel t} [id number] Packet by [employer] 6 gram PwPk 00:00: 00:00 elimination 3D mouth 3 00 :00 due to times intestinal daily ostomy (before meals) for 90 days psyllium 2021- No Altered 1{packe Q.45869886 Take 1 [place] (METAMUCIL) 01-21 bowel t} [id number] Packet by [employer] 6 gram PwPk 00:00: 00:00 elimination 3D mouth 3 00 :00 due to times intestinal daily ostomy (before meals) for 90 days psyllium 2021- No Altered 1{packe Q.34266955 Take 1 [place] (METAMUCIL) 01-21 bowel t} [id number] Packet by [facility] 6 gram PwPk 00:00: 00:00 elimination 3D mouth 3 00 :00 due to times intestinal daily ostomy (before meals) for 90 days psyllium 2021- No Altered 1{packe Q.04402285 Take 1 [place] (METAMUCIL) 01-21 bowel t} [id number] Packet by [facility] 6 gram PwPk 00:00: 00:00 elimination 3D mouth 3 00 :00 due to times intestinal daily ostomy (before meals) for 90 days psyllium 2021- No Altered 1{packe Q.23605642 Take 1 [place] (METAMUCIL) 01-21 bowel t} [id number] Packet by [facility] 6 gram PwPk 00:00: 00:00 elimination 3D mouth 3 00 :00 due to times intestinal daily ostomy (before meals) for 90 days psyllium 2021- No Altered 1{packe Q.31847958 Take 1 [place] (METAMUCIL) 01-21 bowel t} [id number] Packet by [facility] 6 gram PwPk 00:00: 00:00 elimination 3D mouth 3 00 :00 due to times intestinal daily ostomy (before meals) for 90 days psyllium 2021- No Altered 1{packe Q.14560279 Take 1 [place] (METAMUCIL) 01-21 bowel t} [id number] Packet by [facility] 6 gram PwPk 00:00: 00:00 elimination 3D mouth 3 00 :00 due to times intestinal daily ostomy (before meals) for 90 days psyllium 2021- No Altered 1{packe Q.01171534 Take 1 [place] (METAMUCIL) 01-21 bowel t} [id number] Packet by [facility] 6 gram PwPk 00:00: 00:00 elimination 3D mouth 3 00 :00 due to times intestinal daily ostomy (before meals) for 90 days psyllium 2021- No Altered 1{packe Q.56474458 Take 1 [place] (METAMUCIL) 01-21 bowel t} [id number] Packet by [facility] 6 gram PwPk 00:00: 00:00 elimination 3D mouth 3 00 :00 due to times intestinal daily ostomy (before meals) for 90 days psyllium 2021- No Altered 1{packe Q.50116880 Take 1 [place] (METAMUCIL) 01-21 bowel t} [id number] Packet by [employer] 6 gram PwPk 00:00: 00:00 elimination 3D mouth 3 00 :00 due to times intestinal daily ostomy (before meals) for 90 days psyllium 2021- No Altered 1{packe Q.51302498 Take 1 [place] (METAMUCIL) 01-21 bowel t} [id number] Packet by [employer] 6 gram PwPk 00:00: 00:00 elimination 3D mouth 3 00 :00 due to times intestinal daily ostomy (before meals) for 90 days psyllium 2021- No Altered 1{packe Q.21753748 Take 1 [place] (METAMUCIL) 01-21 bowel t} [id number] Packet by [facility] 6 gram PwPk 00:00: 00:00 elimination 3D mouth 3 00 :00 due to times intestinal daily ostomy (before meals) for 90 days psyllium 2021- No Altered 1{packe Q.97092440 Take 1 [place] (METAMUCIL) 01-21 bowel t} [id number] Packet by [employer] 6 gram PwPk 00:00: 00:00 elimination 3D mouth 3 00 :00 due to times intestinal daily ostomy (before meals) for 90 days psyllium 2021- No Altered 1{packe Q.34547870 Take 1 [place] (METAMUCIL) 01-21 bowel t} [id number] Packet by [employer] 6 gram PwPk 00:00: 00:00 elimination 3D mouth 3 00 :00 due to times intestinal daily ostomy (before meals) for 90 days psyllium 2021- No Altered 1{packe Q.80921000 Take 1 [place] (METAMUCIL) 01-21 bowel t} [id number] Packet by [facility] 6 gram Pwk 00:00: 00:00 elimination 3D mouth 3 00 :00 due to times intestinal daily ostomy (before meals) for 90 days psyllium 2021- No Altered 1{packe Q.41381998 Take 1 [place] (METAMUCIL) 01-21 bowel t} [id number] Packet by [facility] 6 gram Pwk 00:00: 00:00 elimination 3D mouth 3 00 :00 due to times intestinal daily ostomy (before meals) for 90 days psyllium 2021- No Altered 1{packe Q.49730370 Take 1 [place] (METAMUCIL) 01-21 bowel t} [id number] Packet by [facility] 6 gram Pwk 00:00: 00:00 elimination 3D mouth 3 00 :00 due to times intestinal daily ostomy (before meals) for 90 days psyllium 2021- No Altered 1{packe Q.04533791 Take 1 [place] (METAMUCIL) 01-21 bowel t} [id number] Packet by [facility] 6 gram Pwk 00:00: 00:00 elimination 3D mouth 3 00 :00 due to times intestinal daily ostomy (before meals) for 90 days psyllium 2021- No Altered 1{packe Q.35133352 Take 1 [place] (METAMUCIL) 01-21 bowel t} [id number] Packet by [facility] 6 gram PwPk 00:00: 00:00 elimination 3D mouth 3 00 :00 due to times intestinal daily ostomy (before meals) for 90 days psyllium 2021- No Altered 1{packe Q.16877848 Take 1 [place] (METAMUCIL) 01-21 bowel t} [id number] Packet by [facility] 6 gram PwPk 00:00: 00:00 elimination 3D mouth 3 00 :00 due to times intestinal daily ostomy (before meals) for 90 days psyllium 2021- No Altered 1{packe Q.73374049 Take 1 [place] (METAMUCIL) 01-21 bowel t} [id number] Packet by [employer] 6 gram PwPk 00:00: 00:00 elimination 3D mouth 3 00 :00 due to times intestinal daily ostomy (before meals) for 90 days psyllium 2021- No Altered 1{packe Q.55331732 Take 1 [place] (METAMUCIL) 01-21 bowel t} [id number] Packet by [employer] 6 gram PwPk 00:00: 00:00 elimination 3D mouth 3 00 :00 due to times intestinal daily ostomy (before meals) for 90 days psyllium 2021- No Altered 1{packe Q.99683132 Take 1 [place] (METAMUCIL) 01-21 bowel t} [id number] Packet by [employer] 6 gram PwPk 00:00: 00:00 elimination 3D mouth 3 00 :00 due to times intestinal daily ostomy (before meals) for 90 days tamsulosin 2021- No Benign .4mg QD Take 1 Momin rris (FLOMAX) 01-12 prostatic capsule by [employer] 0.4 mg 00:00: 00:00 hyperplasia mouth capsule 00 :00 , daily. unspecified Start on whether 01/12/2022. lower urinary tract symptoms present tamsulosin 2021- No Benign .4mg QD Take 1 M[place] r[place] (FLOMAX) 01-12 prostatic capsule by [employer] 0.4 mg 00:00: 00:00 hyperplasia mouth capsule 00 :00 , daily. unspecified Start on whether 01/12/2022. lower urinary tract symptoms present tamsulosin 2021- No Benign .4mg QD Take 1 [place] (FLOMAX) 01-12 prostatic capsule by [employer] 0.4 mg 00:00: 00:00 hyperplasia mouth capsule 00 :00 , daily. unspecified Start on whether 01/12/2022. lower urinary tract symptoms present tamsulosin 2021- No Benign .4mg QD Take 1 [place] (FLOMAX) 01-12- prostatic capsule by [employer] 0.4 mg 00:00: 00:00 hyperplasia mouth capsule [...] Momin rris (FLOMAX) 01-12- prostatic capsule by [facility] 0.4 mg 00:00: 00:00 hyperplasia mouth capsule 00 :00 , daily. unspecified Start on whether 01/12/2022. lower urinary tract symptoms present tamsulosin 2021-2021- No Benign .4mg QD Take 1 M[place] r[place] (FLOMAX) 01-12- prostatic capsule by [facility] 0.4 mg 00:00: 00:00 hyperplasia mouth capsule 00 :00 , daily. unspecified Start on whether 01/12/2022. lower urinary tract symptoms present tamsulosin 2021-0 2021- No Benign .4mg QD Take 1 [place] r[place] (FLOMAX) 01-12-31 prostatic capsule by [facility] 0.4 mg 00:00: 00:00 hyperplasia mouth capsule [...] Momin rris (FLOMAX) 01-12-31 prostatic capsule by [facility] 0.4 mg 00:00: 00:00 hyperplasia mouth capsule [...] Momin rris (FLOMAX) 01-12 prostatic capsule by [facility] 0.4 mg 00:00: 00:00 hyperplasia mouth capsule 00 :00 , daily. unspecified Start on whether 01/12/2022. lower urinary tract symptoms present tamsulosin 2021-0 2021- No Benign .4mg QD Take 1 [place] (FLOMAX) 01-12 prostatic capsule by [facility] 0.4 mg 00:00: 00:00 hyperplasia mouth capsule 00 :00 , daily. unspecified Start on whether 01/12/2022. lower urinary tract symptoms present tamsulosin 2021-0 2021- No Benign .4mg QD Take 1 [place] (FLOMAX) 01-12 prostatic capsule by [facility] 0.4 mg 00:00: 00:00 hyperplasia mouth capsule 00 :00 , daily. unspecified Start on whether 01/12/2022. lower urinary tract symptoms present tamsulosin 2021-2021- No Benign .4mg QD Take 1 [place] (FLOMAX) 01-12 prostatic capsule by [facility] 0.4 mg 00:00: 00:00 hyperplasia mouth capsule 00 :00 , daily. unspecified Start on whether 01/12/2022. lower urinary tract symptoms present tamsulosin 2021-0 2021- No Benign .4mg QD Take 1 Momin rris (FLOMAX) 01-12 prostatic capsule by [facility] 0.4 mg 00:00: 00:00 hyperplasia mouth capsule [...] 00 daily mcg tablet cyanocobala 2-0 Yes [id number] 1000ug QD Take 1 [place] min, 5-21 4102 tablet by [facility] vitamin 00:00: mouth B-12, 1,000 00 daily mcg tablet cyanocobala 2021-0 Yes [id number] 1000ug QD Take 1 [place] min, 5-21 4102 tablet by [facility] vitamin 00:00: mouth B-12, 1,000 00 daily mcg tablet cyanocobala 2021-0 Yes [id number] 1000ug QD Take 1 [place] min, 5-21 [...] ity of E 22:15: 22:15 ONCE, 1 [place] (MECLIZINE) 00 :00 dose, On Medi mariusz ) tablet 25 [place] Branch mg 1/20/22 at 1615, JOÃO NaCl 0.9% 2021- No [...] 09/07/21 at 2045, JOÃO iopamidol 2021- No [id number] 100mL 100 mL, Univers (ISOVUE 09-08 Intravenou [...] Indication s: acute pain ondansetron 2021-0 Yes [id number] 4mg Take 1 Univers 4 mg 1-15 [...] Indication s: acute pain ondansetron 2021-0 Yes [id number] 4mg Take 1 Univers 4 mg 1-15 [...] Indication s: acute pain ondansetron 2021-0 Yes [id number] 4mg Take 1 Univers 4 mg 1-15 [...] Indication s: acute pain ondansetron 2021-0 Yes [id number] 4mg Take 1 Univers 4 mg 1-15 [...] Indication s: acute pain ondansetron 2021-0 Yes [id number] 4mg Take 1 Univers 4 mg 1-15 [...] 4-6). Indication s: acute pain ondansetron 2021-0 2021- No [id number] 4mg Take 1 Univers 4 mg 1-15 [...] Branch daily with meals. loperamide 2022-0 Yes [id number] 2mg Take 1 Univers 2 mg 1-12 [...] Branch daily with meals. loperamide 2022-0 Yes [id number] 2mg Take 1 Univers 2 mg 1-12 [...] Branch daily with meals. loperamide 2022-0 Yes [id number] 2mg Take 1 Univers 2 mg 1-12 [...] Branch daily with meals. loperamide 2022-0 Yes [id number] 2mg Take 1 Univers 2 mg 1-12 [...] Branch daily with meals. loperamide 2022-0 Yes [id number] 2mg Take 1 Univers 2 mg 1-12 [...] Branch daily with meals. loperamide 2022-0 Yes [id number] 2mg Take 1 Univers 2 mg 1-12 [...] Branch daily with meals. loperamide 2022-0 Yes [id number] 2mg Take 1 Univers 2 mg 1-12 [...] Branch daily with meals. loperamide 2022-0 Yes [id number] 2mg Take 1 Univers 2 mg 1-12 [...] Branch daily with meals. loperamide 2021-0 Yes [id number] 2mg Take 1 Univers 2 mg 12 capsule by ity of capsule 00:00: mouth 2 [place] 00 (two) Medical times Branch daily. psyllium 2021-0 Yes 1{packe Take 1 Univ ers 3.4 gram -12 t} Packet by ity of packet 00:00: mouth 2 [place] 00 (two) Medical times Branch daily. acetaminoph 2021- No 650mg Take 2 Un piyush en 325 mg 09-04 08-10 tablets by ity of tablet 00:00: 00:00 mouth [place] 00 :00 every 6 Medical (six) Branch hours as needed for Pain (scale 1-3). ibuprofen 2021-2021- No 600mg Take 1 Univ ers 600 mg 09-04 08-10 tablet by ity of tablet 00:00: 00:00 mouth 3 [place] 00 :00 (three) Medical times Branch daily with meals. loperamide 2021-2021- No [id number] 2mg Take 1 Univers 2 mg 09-04 08-10 capsule by ity of capsule 00:00: 00:00 mouth 2 [place] 00 :00 (two) Medical times Branch daily. psyllium 2-0 2- No 1{packe Take 1 Uni vers 3.4 gram 09-04 08-10 t} Packet by ity o f packet 00:00: 00:00 mouth 2 [place] 00 :00 (two) Medical times Branch daily. [...] at 1400, Until Discontinu ed, Routine ibuprofen 2021-0 2021- No 600mg 600 mg, Uni vers (IBU) 09-0316 Oral, TID ity of tablet 600 18:00: [...] Thu09/03/21 at 0826, Routine sulfur 2021- No [id number] 5mL 5 mL, Unive rs hexafluorid 09-02 Intravenou i ty of e microsphr 21:30: 21:30 s, ONCE, 1 [place] (LUMASON) 00 :00 dose, On Medica l injection 5 Mon Branch mL 09/02/21 at 1530, Routine
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 approving Restricted medication : CAMILA GREGORY NaCl 0.9% 2021-0 2021- No 500mL at 999 Univ ers [...] 1-08 Oral, ity of (PROTONIX) 15:00: DAILY, [place] EC tablet 00 First dose Medi mariusz 40 mg on Sat Branch 08/31/21 at 0900, Until Discontinu ed, Routine pantoprazol 2021-0 Yes 40mg 40 mg, Univ ers e 1-08 Oral, ity of (PROTONIX) 15:00: DAILY, [place] EC tablet 00 First dose Medi mariusz [...] 14:00: First dose [place] SINGLES) 00 on [facility] Medical 3.4 gram 08/31/21 at Branch packet [...] First dose [place] capsule 2 00 on [facility] Medical mg 08/31/21 at Branch 0800, Until Discontinu ed, Routine psyllium 2021-0 Yes 1{packe 1 Packet, U nivers (METAMUCIL 1-08 t} Oral, BID, ity of FIBER 14:00: First dose [place] SINGLES) 00 on [facility] Medical 3.4 gram 08/31/21 at Branch packet [...] 1-08 Oral, ity of (TYLENOL) 06:03: Q6HPRN, [place] tablet 650 36 Starting Medic al mg on [facility] Branch 08/31/21 at 0003, Until Discontinu ed, Routine, Pain (scale 1-3) acetaminoph 2021-0 Yes 650mg 650 mg, Un piyush en 1-08 Oral, ity of (TYLENOL) 06:03: Q6HPRN, [place] tablet 650 36 Starting Medic al mg [...] No Univers medications 08-29 ity of 19:35: [place] 26 Medical Branch [...] 5 37 Starting Medi mariusz mL on [place] Branch 08/04/21 at 1313, Until Discontinu ed, Routine, Local anesthesia dextrose 5% 2020-08 Yes IV Univer s and 0.45% 212 Infusion, ity o f NaCl with 16:00: CONTINUOUS [place] KCl 40 mEq 00 , Starting Med ical 1,000 mL IV on [place] Branch Solution 08/04/21 at 1000, Until Discontinu ed, 1,000 mL, at 125 mL/hr NaCl 0.9% 2020-08- No 1000mL at 999 Uni vers (NS) bolus 212 12-12 mL/hr, ity of infusion 15:53: 17:17 1,000 mL, Javi as 1,000 mL 00 :00 IV Medical Piggyback, Branch ONCE, 1 dose, On [place] 08/04/21 at 1000, JOÃO D5W 0.45% 2020-08- No IV Univers NaCl + KCL 2-10 -12 Infusion, ity of 20 mEq RTU 15:00: 15:56 CONTINUOUS [place] 20 mEq/L 00 :45 , Starting Medic al 1,000 mL IV on Thu Branch Solution 08/02/21 at 0900, Until [place] 08/04/21 at 0956, 1,000 mL, at 100 [...] Until Discontinu ed, Routine iopamidol 2020-08- No [id number] 100mL 100 mL, Univers (ISOVUE 10-01 Intravenou ity o f 370-500 mL) 05:14: 05:14 s, ONCE, 1 [place] injection 00 :00 dose, On Medica l 100 mL e Branch 07/30/21 at 2315, Routine morpHINE 2020-08- No 2mg 2 mg, Slow Un piyush injection 2 09-30 IV Push, ity of mg 17:00: 17:10 ONCE, 1 [place] 00 :00 dose, On Medical [facility] 07/30/21 at 1115, Routine enoxaparin 2020-08 Yes 40mg 40 mg, Unive rs (LOVENOX) 09-30 Subcutaneo ity of injection 15:00: us, DAILY, [place] 40 mg 00 First dose Medical (after Branch last modificati on) on Thu07/30/21 at 0900, Until Discontinu ed, Routine pantoprazol 2020-08 No 40mg 40 mg, Uni vers e 09-30 1210 Oral, ity of (PROTONIX) 15:00: 13:40 DAILY, [place] EC tablet 00 :20 First dose Medi mariusz 40 mg on [facility] 07/30/21 at 0900, Until Discontinu ed, Routine loperamide 2020-08 No 4mg 4 mg, Unive rs (IMODIUM 09-30 Oral, TID, ity of A-D) 14:00: 13:19 First dose [place] capsule 4 00 :28 on [facility] Medical mg 07/30/21 at Branch 0800, Until Discontinu ed, Routine psyllium 2020-08 No 1{packe 1 Packet, Univers (METAMUCIL 09-30 t} Oral, TID, it y of FIBER 14:00: 13:19 First dose [place] SINGLES) 00 :28 on [facility] Medical 3.4 gram 07/30/21 at [facility] h packet 1 0800, Packet [...] 1000mL at 999 Uni vers (NS) bolus 09-30- mL/hr, ity of infusion 07:15: 07:17 1,000 [...] 2-07 Oral, ity of (TYLENOL) 06:10: Q6HPRN, [place] tablet 650 40 Starting Medic al mg on [place] 07/30/21 at 0010, Until Discontinu ed, Routine, Pain (scale 1-3) morpHINE 2020-08 4mg 4 mg, Slow Un piyush injection 4 2-07 12-07 IV Push, ity of mg 03:30: 02:55 ONCE, 1 [place] 00 :00 dose, On [facility] Branch 07/29/21 at 2130, STAT psyllium 2020-08 Yes [id number] 1{packe Take 1 Univers 3.4 gram 2-03 t} Packet by ity of packet 00:00: mouth 3 [place] 00 (three) Medical times Branch daily. loperamide 2020-08 Yes [id number] 4mg Take 2 Univers 2 mg 2-03 capsules ity of capsule 00:00: by mouth 3 [place] 00 (three) Medical times [place] daily. pantoprazol 2020-08 Yes [id number] 40mg Take 1 Univers e 40 mg EC 2-03 tablet by ity of tablet 00:00: mouth [place] 00 daily. Medical Branch psyllium 2020-08 Yes [id number] 1{packe Take 1 Univers 3.4 gram 2-03 t} Packet by ity of packet 00:00: mouth 3 [place] 00 (three) Medical times Branch daily. loperamide 2020-08 Yes [id number] 4mg Take 2 Univers 2 mg 2-03 capsules ity of capsule 00:00: by mouth 3 [place] 00 (three) Medical times Branch daily. pantoprazol 2020-08 Yes [id number] 40mg Take 1 Univers e 40 mg EC 2-03 tablet by ity of tablet 00:00: mouth [place] 00 daily. Medical Branch psyllium 2020-08- No [id number] 1{packe Take 1 Univers 3.4 gram 2-03 12-13 t} Packet by ity o f packet 00:00: 00:00 mouth 3 [place] 00 :00 (three) Medical times Branch daily. loperamide 2020-08- No [id number] 4mg Take 2 Univers 2 mg 2-03 12-13 capsules ity of capsule 00:00: 00:00 by mouth 3 [place] 00 :00 (three) Medical times Branch daily. pantoprazol 2020-08- No [id number] 40mg Take 1 Univers e 40 mg EC 2-03 12-13 tablet by ity of tablet 00:00: 00:00 mouth [place] 00 :00 daily. Medical Branch psyllium 2020-08- No [id number] 1{packe Take 1 Univers 3.4 gram 2-03 12-03 t} Packet by ity o f packet 00:00: 00:00 mouth 3 [place] 00 :00 (three) Medical times Branch daily for 90 days. loperamide 2020-08- No [id number] 4mg Take 2 Univers 2 mg 2-03 12-03 capsules ity of capsule 00:00: 00:00 by mouth 3 [place] 00 :00 (three) Medical times Branch daily for 90 days. pantoprazol 2020-08- No [id number] 40mg Take 1 Univers e 40 mg EC 2-03 12-03 tablet by ity of tablet 00:00: 00:00 mouth [place] 00 :00 daily for Medical 90 days. Branch psyllium 2020-08- No [id number] 1{packe Take 1 Univers 3.4 gram 2-03 12-03 t} Packet by ity o f packet 00:00: 00:00 mouth 3 [place] 00 :00 (three) Medical times Branch daily. pantoprazol 2020-08 No [id number] 40mg Take 1 Univers e 40 mg EC 09-26 tablet by ity of tablet 00:00: 00:00 mouth [place] 00 :00 daily. Medical Branch loperamide 2020-08- No [id number] 4mg Take 2 Univers 2 mg 09-26 capsules ity of capsule 00:00: 00:00 by mouth 3 [place] 00 :00 (three) Medical times Branch daily. psyllium 2020-08- No [id number] 1{packe Take 1 Univers 3.4 gram 09-26 t} Packet by ity o f packet 00:00: 00:00 mouth 3 [place] 00 :00 (three) Medical times Branch daily. loperamide 2020-08- No [id number] 4mg Take 2 Univers 2 mg 09-26 capsules ity of capsule 00:00: 00:00 by mouth 3 [place] 00 :00 (three) Medical times Branch daily. pantoprazol 2020-08 No [id number] 40mg Take 1 Univers e 40 mg [...] dose [place] 2.5-0.025 00 :48 on [facility] Medical mg tablet 1 12/2/21 at Br anch tablet 0800, Until Discontinu [...] No 1{packe 1 Packet, Univers (METAMUCIL 09-24 12- t} Oral, BID, it y of FIBER 14:00: 12:09 First dose [place] SINGLES) 00 :58 (after Medical 3.4 gram last Branch packet 1 modificati Packet on) on Thu07/24/21 at 0800, Until Discontinu ed, Routine enoxaparin 2020-08 Yes 40mg 40 mg, Unive rs (LOVENOX) 130 Subcutaneo ity of injection 23:00: us, DAILY, [place] 40 mg 00 First dose Medical on Thu Branch 07/23/21 at 1700, Until Discontinu ed, Routine psyllium 2020-08- No 1{packe 1 Packet, Univers (METAMUCIL 09-22 12- t} Oral, ity of FIBER 15:00: 11:41 [...] 130 Oral, ity of (TYLENOL) 07:31: Q6HPRN, [place] tablet 650 37 Starting Medic al mg on Thu Branch 07/23/21 at 0131, Until Discontinu ed, Routine, Pain (scale 1-3) NaCl 0.9% 2020-08- No 1000mL at 999 Uni vers (NS) bolus 30 11-30 mL/hr, ity of infusion 06:46: 07:00 1,000 mL, [place] as 1,000 mL 00 :00 IV Medical Piggyback, [place] ONCE, 1 dose, On Thu07/23/21 at 0100, [...] dose [place] EC tablet 00 on [facility] Medical 40 mg 06/01/21 at Branch 0945, Until Discontinu ed, Routine psyllium 2020-08 Yes 1{packe 1 Packet, U nivers (METAMUCIL 0-09 t} Oral, ity of FIBER 14:45: DAILY, [place] SINGLES) 00 First dose Medic al 3.4 gram on [facility] Branch packet 1 06/01/21 at Packet 0945, Until Discontinu ed, Routine traMADoL 2020-08 Yes 50mg 50 mg, Univers (ULTRAM) 0-09 Oral, ity of tablet 50 14:39: Q6HPRN, [place] mg 34 Starting Medical on [facility] Branch 06/01/21 at 0939, Until Discontinu ed, Routine, Pain (scale 4-6) HYDROcodone 2020-08 Yes 1{tbl} 1 tablet, Univers -acetaminop 0-09 Oral, ity of hen (NORCO 14:39: Q6HPRN, [place] 5) 5-325 mg 16 Starting Medi mariusz tablet 1 on [facility] Branch tablet 06/01/21 at 0939, Until Discontinu ed, Routine, Pain (scale 7-10) ondansetron 2020-08 Yes 4mg 4 mg, Slow Univers (ZOFRAN 0-09 IV Push, ity of (PF)) 14:38: Q6HPRN, [place] injection 4 58 Starting Medi mariusz mg on [facility] Branch 06/01/21 at 0938, Until Discontinu ed, Routine, Nausea and Vomiting (N/V) acetaminoph 2020-08 Yes 650mg 650 mg, Un piyush en 0-09 Oral, ity of (TYLENOL) 14:36: Q6HPRN, [place] tablet 650 07 Starting Medic al mg [...] dose, On Thu05/31/21 at 2045, STAT iopamidol 2020-08 No [id number] 100mL 100 mL, Univers (ISOVUE 0-09 10-09 [...] 00 :00 dose, On Medi mariusz mg [facility] Branch 05/31/21 at 1830, JOÃO NaCl 0.9% 2020-08- No 500mL at 999 Univ ers (NS) bolus 0-08 10-08 mL/hr, 500 it y of infusion 23:30: 23:59 mL, IV [place] 500 mL 00 :00 Piggyback, Medical ONCE, 1 Branch dose, On Thu05/31/21 at 1830, STAT psyllium Yes [id number] 1{packe Take 1 Univers 3.4 gram 9-29 t} Packet by ity of packet 00:00: mouth [place] 00 daily. [facility] Branch psyllium 0 Yes [id number] 1{packe Take 1 Univers 3.4 gram 9-29 t} Packet by ity of packet 00:00: mouth [place] 00 daily. [facility] Branch psyllium 0 Yes [id number] 1{packe Take 1 Univers 3.4 gram 9-29 t} Packet by ity of packet 00:00: mouth [place] 00 daily. [facility] Branch psyllium 0 Yes [id number] 1{packe Take 1 Univers 3.4 gram 9-29 t} Packet by ity of packet 00:00: mouth [place] 00 daily. [facility] Branch psyllium Yes [id number] 1{packe Take 1 Univers 3.4 gram 9-29 t} Packet by ity of packet 00:00: mouth [place] 00 daily. [facility] psyllium 202- No [id number] 1{packe Take 1 Univers 3.4 gram 9-29 12-13 t} Packet by ity o f packet 00:00: 00:00 mouth [place] 00 :00 daily. [facility] Branch enoxaparin Yes 40mg 40 mg, [...] on Thu Branch 05/20/21 at 1915, Until 05/22/21 at 1914, Routine, Pain (scale [...] t} Oral, ity of FIBER 22:15: DAILY, [place] SINGLES) 00 First dose Medic al 3.4 gram (after Branch packet 1 last Packet modificati on) on Thu05/20/21 at 1715, Until Discontinu ed, Routine lactated 2020- No 2000mL at 999 [facility] ers ringers IV 05-20 mL/hr, ity of infusion 22:02: 22:36 2,000 mL, Javi as 2,000 mL 00 :00 Intravenou Medic al s, ONCE, 1 Branch dose, On Thu05/20/21 at 1715, JOÃO ondansetron 2020- No 4mg 4 mg, Slow Univers (ZOFRAN 05-20 IV Push, ity of (PF)) 21:00: 20:15 ONCE, 1 [place] injection 4 00 :00 dose, On Medi mariusz mg Thu05/20/21 at 1600, JOÃO morpHINE 2020- No 4mg 4 mg, Slow Un piyush injection 4 05-20 IV Push, ity of mg 21:00: 20:15 ONCE, 1 [place] 00 :00 dose, On Medical [facility] 05/20/21 at 1600, STAT NaCl 0.9% 2020- No 500mL at 999 Univ ers (NS) bolus 05-20 mL/hr, 500 it y of infusion 21:00: 21:00 mL, IV [place] 500 mL 00 :00 Piggyback, Medical ONCE, 1 [place] dose, On [facility] 05/20/21 at 1600, STAT pantoprazol Yes 40mg 40 mg, Univ ers e 05-10 Oral, BID, ity of (PROTONIX) 01:00: First dose [place] EC tablet 00 on [facility] Medical 40 mg 05/09/21 at [place] 1999, Until Discontinu ed, Routine pantoprazol Yes 40mg 40 mg, Univ ers e 05-10 Oral, BID, ity of (PROTONIX) 01:00: First dose [place] EC tablet 00 on [facility] Medical 40 mg 05/09/21 at [place] 1999, Until Discontinu ed, Routine pantoprazol 2020- No [id number] 40mg Take 1 Univers e 40 mg EC 9-16 11-16 tablet by ity of tablet 00:00: 05:59 mouth 2 [place] 00 :00 (two) [facility] daily pantoprazol 2020- No [id number] 40mg Take 1 Univers e 40 mg EC 9-16 11-16 tablet by ity of tablet 00:00: 05:59 mouth 2 [place] 00 :00 (two) [facility] daily pantoprazol 2020- No [id number] 40mg Take 1 Univers e 40 mg EC 9-16 11-16 tablet by ity of tablet 00:00: 05:59 mouth 2 [place] 00 :00 (two) [facility] daily pantoprazol 2020- No [id number] 40mg Take 1 Univers e 40 mg EC 9-16 11-16 tablet by ity of tablet 00:00: 05:59 mouth 2 [place] 00 :00 (two) [facility] daily pantoprazol 2020- No [id number] 40mg Take 1 Univers e 40 mg EC 9-16 11-16 tablet by ity of tablet 00:00: 05:59 mouth 2 [place] 00 :00 (two) Medical times Branch daily pantoprazol 2020- No [id number] 40mg Take 1 Univers e 40 mg EC 9-16 11-16 tablet by ity of tablet 00:00: 05:59 mouth 2 [place] 00 :00 (two) Medical times Branch daily pantoprazol 0 2020- No [id number] 40mg Take 1 Univers e 40 mg EC 9-16 11-16 tablet by ity of tablet 00:00: 05:59 mouth 2 [place] 00 :00 (two) Medical times Branch daily [...] Thu05/07/21 at 2330, Until Discontinu ed pantoprazol 0 2020- No 40mg 40 mg, Uni vers e 05-08 Slow IV ity of (PROTONIX) 04:30: 14:42 Push, [place] injection 00 :43 Q12H, Medical 40 mg First dose Branch on Thu05/07/21 at 2330, Until Discontinu ed ondansetron Yes 4mg 4 mg, Slow Univers (ZOFRAN 9-15 IV Push, ity of (PF)) 04:16: Q6HPRN, [place] injection 4 34 Starting Medi mariusz mg on [facility] Branch 05/07/21 at 2316, Until Discontinu ed, Routine, Nausea and Vomiting (N/V) ondansetron Yes 4mg 4 mg, Slow Univers (ZOFRAN -15 IV Push, ity of (PF)) 04:16: Q6HPRN, [place] injection 4 34 Starting Medi mariusz mg on [facility] Branch 05/07/21 at 2316, Until Discontinu ed, Routine, Nausea and Vomiting (N/V) morpHINE 0 2020- No 4mg 4 mg, Slow Un pi[place] injection 4 05-08 IV Push, ity of mg 04:16: 04:15 [facility] [place] 32 :32 Starting Medical on [facility] Branch 05/07/21 at 2316, Until Thu05/08/21 at 2315, Routine, Pain (scale 7-10) morpHINE 0 2020- No 4mg 4 mg, Slow Un [place] injection 4 05-08 IV Push, ity of mg 04:16: 04:15 Q4HPN, [place] 32 :32 Starting Medical on [facility] Branch 05/07/21 at 2316, Until Thu05/08/21 at 2315, Routine, Pain (scale 7-10) diazePAM 2020-0 2020- No 5mg 5 mg, Slow Un pi[place] (VALIUM) 05-08 IV Push, ity of injection 5 02:45: 02:49 ONCE, 1 [place] mg 00 :00 dose, On Medical [facility] 05/07/21 at 2145, STAT diazePAM 2020-0 2020- No 5mg 5 mg, Slow Un [place] (VALIUM) 05-08 IV Push, ity of injection 5 02:45: 02:49 ONCE, 1 [place] mg 00 :00 dose, On Medical Tue Branch 05/07/21 at 2145, STAT iopamidol 2020- No [id number] 100mL 100 mL, Univers (ISOVUE 05-08 Intravenou ity o f 370-500 mL) 02:15: 01:08 s, ONCE, 1 [place] injection 00 :00 dose, On Medica l 100 mL e Branch 05/07/21 at 2115, Routine iopamidol 2020- No [id number] 100mL 100 mL, Univers (ISOVUE 05-08 Intravenou ity o f 370-500 mL) 02:15: 01:08 s, ONCE, 1 [place] injection 00 :00 dose, On Medica l 100 mL e Branch 05/07/21 at 2115, Routine morpHINE 2020- No 4mg 4 mg, Slow Un [place] injection 4 05-08 IV Push, ity of mg 01:45: 00:48 ONCE, 1 [place] 00 :00 dose, On Medical e Branch 05/07/21 at 204, JOÃO ondansetron 2020- No 4mg 4 mg, Slow Univers (ZOFRAN 05-08 IV Push, ity of (PF)) 01:45: 00:47 ONCE, 1 [place] injection 4 00 :00 dose, On Medi mariusz mg [facility] Branch 05/07/21 at 204, JOÃO morpHINE 0 2020- No 4mg 4 mg, Slow Un [place] injection 4 05-08 IV Push, ity of mg 01:45: 00:48 ONCE, 1 [place] 00 :00 dose, On Medical e Branch 05/07/21 at 204, JOÃO ondansetron 2020-2020- No 4mg 4 mg, Slow Univers (ZOFRAN 05-08 IV Push, ity of (PF)) 01:45: 00:47 ONCE, 1 [place] injection 4 00 :00 dose, On Medi mariusz mg [facility] Branch 05/07/21 at 2044, JOÃO flu vaccine 2020-0 2021- No .5mL 0.5 mL, Un piyush 6 months 08-24 Intramuscu ity of and up (PF) 17:30: 18:09 lar, ONCE, [place] (FLUZONE 00 :00 1 dose, Medical QUAD 08/24/20 Branch [id number] at 1130, (PF)) Routine syringe 0.5 mL sulfamethox 2020- No 1{tbl} 1 tablet, [facility] azole-trime 08-24 Oral, BID, i ty of thoprim 02:00: 13:59 7 doses, [place] (BACTRIM 00 :00 First dose Medic al DS) 800-160 on [place] Branch mg per 08/23/20 tablet 1 at 1999, tablet Last dose on 08/26/20 at 1999, JOÃO
Re ason for Anti-Infec tive: Empiric Therapy for Suspected Infection< br>Empiric Therapy Site: Skin / Soft tissue
Duration of therapy: 72 hours sulfamethox 2020- No [id number] 1{tbl} Take 1 [facility] azole-trime 08-24 tablet by it y of [...] 0800, Packet Until Discontinu ed, Routine heparin 2020-1 2020- No 5000U 5,000 Univers (porcine) 2-31 [...] f tablet 6 mg 03:12: - SEE [place] 40 [facility] Medical NS, 1 Branch dose, Starting 08/22/20 at 2112, Until Discontinu ed, Routine, Insomnia, HS labetaloL 2019-08 Yes 10mg 10 mg, Univer s (NORMODYNE) 2 Slow IV ity o f injection 03:12: Push, [place] 10 mg 33 Q6HPRN, Medical Starting Branch 08/22/20 at 2112, Until Discontinu ed, Routine, hypertensi on ondansetron 2019-08 Yes 4mg 4 mg, Slow Univers (ZOFRAN 2 IV Push, ity of (PF)) 03:12: Q6HPRN, [place] injection 4 08 Starting Medi mariusz mg Wed Branch 08/22/20 at 2112, Until Discontinu ed, Routine, Nausea and Vomiting (N/V) acetaminoph 2019-08 Yes 650mg 650 mg, Un piyush en 2-31 Oral, ity of (TYLENOL) 03:11: Q6HPRN, [place] tablet 650 56 Starting Medic al mg [...] of 1,000 mg in 23:30: 00:58 Piggyback, [place] NaCl 0.9% 00 :00 ONCE, 1 Medical (NS) 50 mL dose, Mon Bran ch MINI-BAG 07/09/20 at 1730, 50 mL
Reas on for Anti-Infec tive: Documented Infection< br>Documen dain Infection Site: HEENT
D uration of Therapy: Other (see Comments) NaCl 0.9% 2019-08- No 1000mL at 999 Uni vers (NS) bolus -16 11-17 mL/hr, ity of infusion 22:45: 00:07 1,000 mL, Javi as 1,000 mL 00 :00 IV Medical Infusion, Branch ONCE, 1 dose, 07/09/20 at 1645, JOÃO amoxicillin 2019-08 Yes [id number] 1{tbl} Take 1 Univers -clavulanat 1-16 tablet by ity of e 875-125 00:00: mouth [place] mg per 00 every 12 Medical tablet (twelve) Branch hours. amoxicillin 2019-08- No [id number] 1{tbl} Take 1 Univers -clavulanat 1-16 - tablet by it y of e 875-125 00:00: 00:00 mouth [place] mg per 00 :00 every 12 Medical tablet (twelve) Branch hours. iohexol 2019-08- No 120mL 120 mL, Unive rs (OMNIPAQUE 0-13 10-13 Intravenou it y of 350 13:15: 12:53 s, ONCE, 1 [place] BULK-150 00 :00 dose, Tue Medica l mL) 06/05/20 Branch injection at 0815, 120 mL Routine NaCl 0.9% 2019-08- No 1000mL at 999 Uni vers (NS) bolus 0-13 10-13 mL/hr, ity of infusion 12:00: 13:00 1,000 mL, [place] as 1,000 mL 00 :00 IV Medical Infusion, Branch ONCE, 1 dose, Thu06/05/20 at 0700, JOÃO levoFLOXaci 2019-08 2020- No 750mg 750 mg, U nivers n 0-08 10-08 Oral, Q24H ity of (LEVAQUIN) 04:30: 04:35 ABX, 1 [place] tablet 750 00 :00 dose, Medical mg First dose Branch (after last modificati on) on Thu05/30/20 at 2330, JOÃO
Re ason for Anti-Infec tive: Documented Infection< br>Documen dain Infection Site: Abdominal& lt;br>Dura tion of Therapy: 7 days ibuprofen 2019- Yes [id number] 800mg Take 1 U nivers 800 mg 0-08 tablet by ity of tablet 00:00: mouth [place] 00 every 6 Medical (six) Branch hours as needed for Pain (scale 4-6). loperamide 2019-08 Yes [id number] 4mg Take 2 U nivers 2 mg 0-08 capsules ity of capsule 00:00: by mouth 4 [place] 00 (four) Medical times Branch daily. diphenoxyla 2019-08 Yes [id number] 1{tbl} Take 1 Univers te-atropine 0-08 tablet by ity of 2.5-0.025 00:00: mouth [place] mg tablet 00 every 8 Medical (eight) Branch hours. psyllium 2019- Yes [id number] 3{packe Take 3 Univers 3.4 gram 0-08 t} Packets by ity o f packet 00:00: mouth 3 [place] 00 (three) Medical times Branch daily. psyllium 2019- Yes [id number] 3{packe Take 3 Univers 3.4 gram 0-08 t} Packets by ity o f packet 00:00: mouth 3 [place] 00 (three) Medical times Branch daily. diphenoxyla 2019- Yes [id number] 1{tbl} Take 1 Univers te-atropine 0-08 tablet by ity of 2.5-0.025 00:00: mouth [place] mg tablet 00 every 8 Medical (eight) Branch hours. loperamide 2019- Yes [id number] 4mg Take 2 U nivers 2 mg 0-08 capsules ity of capsule 00:00: by mouth 4 [place] 00 (four) Medical times Branch daily. ibuprofen 2020-1 Yes [id number] 800mg Take 1 U nivers 800 mg 0-08 tablet by ity of tablet 00:00: mouth [place] 00 every 6 Medical (six) Branch hours as needed for Pain (scale 4-6). psyllium 2020-1 Yes [id number] 3{packe Take 3 Univers 3.4 gram 0-08 t} Packets by ity o f packet 00:00: mouth 3 [place] 00 (three) Medical times Branch daily. diphenoxyla 2020- Yes [id number] 1{tbl} Take 1 Univers te-atropine 0-08 tablet by ity of 2.5-0.025 00:00: mouth [place] mg tablet 00 every 8 Medical (eight) Branch hours. loperamide 2020- Yes [id number] 4mg Take 2 U nivers 2 mg 0-08 capsules ity of capsule 00:00: by mouth 4 [place] 00 (four) Medical times Branch daily. ibuprofen 2020- Yes [id number] 800mg Take 1 U nivers 800 mg 0-08 tablet by ity of tablet 00:00: mouth [place] 00 every 6 Medical (six) Branch hours as needed for Pain (scale 4-6). psyllium 2020-1 Yes [id number] 3{packe Take 3 Univers 3.4 gram 0-08 t} Packets by ity o f packet 00:00: mouth 3 [place] 00 (three) Medical times Branch daily. diphenoxyla 2020-1 Yes [id number] 1{tbl} Take 1 Univers te-atropine 0-08 tablet by ity of 2.5-0.025 00:00: mouth [place] mg tablet 00 every 8 Medical (eight) Branch hours. loperamide 2020-1 Yes [id number] 4mg Take 2 U nivers 2 mg 0-08 capsules ity of capsule 00:00: by mouth 4 [place] 00 (four) Medical times Branch daily. ibuprofen 2020-1 Yes [id number] 800mg Take 1 U nivers 800 mg 0-08 tablet by ity of tablet 00:00: mouth [place] 00 every 6 Medical (six) Branch hours as needed for Pain (scale 4-6). psyllium 2020-1 Yes [id number] 3{packe Take 3 Univers 3.4 gram 0-08 t} Packets by ity o f packet 00:00: mouth 3 [place] 00 (three) Medical times Branch daily. diphenoxyla 2020- Yes [id number] 1{tbl} Take 1 Univers te-atropine 0-08 tablet by ity of 2.5-0.025 00:00: mouth [place] mg tablet 00 every 8 Medical (eight) Branch hours. loperamide 2020- Yes [id number] 4mg Take 2 U nivers 2 mg 0-08 capsules ity of capsule 00:00: by mouth 4 [place] 00 (four) Medical times Branch daily. ibuprofen 2019- Yes [id number] 800mg Take 1 U nivers 800 mg 0-08 tablet by ity of tablet 00:00: mouth [place] 00 every 6 Medical (six) Branch hours as needed for Pain (scale 4-6). psyllium 2020- Yes [id number] 3{packe Take 3 Univers 3.4 gram 0-08 t} Packets by ity o f packet 00:00: mouth 3 [place] 00 (three) Medical times Branch daily. diphenoxyla 2019- Yes [id number] 1{tbl} Take 1 Univers te-atropine 0-08 tablet by ity of 2.5-0.025 00:00: mouth [place] mg tablet 00 every 8 Medical (eight) Branch hours. loperamide 2019- Yes [id number] 4mg Take 2 U nivers 2 mg 0-08 capsules ity of capsule 00:00: by mouth 4 [place] 00 (four) Medical times Branch daily. ibuprofen 2019- Yes [id number] 800mg Take 1 U nivers 800 mg 0-08 tablet by ity of tablet 00:00: mouth [place] 00 every 6 Medical (six) Branch hours as needed for Pain (scale 4-6). psyllium 2020- Yes [id number] 3{packe Take 3 Univers 3.4 gram 0-08 t} Packets by ity o f packet 00:00: mouth 3 [place] 00 (three) Medical times Branch daily. diphenoxyla 2020- Yes [id number] 1{tbl} Take 1 Univers te-atropine 0-08 tablet by ity of 2.5-0.025 00:00: mouth [place] mg tablet 00 every 8 Medical (eight) Branch hours. loperamide 2020-1 Yes [id number] 4mg Take 2 U nivers 2 mg 0-08 capsules ity of capsule 00:00: by mouth 4 [place] 00 (four) Medical times Branch daily. ibuprofen 2020-1 Yes [id number] 800mg Take 1 U nivers 800 mg 0-08 tablet by ity of tablet 00:00: mouth [place] 00 every 6 Medical (six) Branch hours as needed for Pain (scale 4-6). psyllium 2020-1 Yes [id number] 3{packe Take 3 Univers 3.4 gram 0-08 t} Packets by ity o f packet 00:00: mouth 3 [place] 00 (three) Medical times Branch daily. diphenoxyla 2020-1 Yes [id number] 1{tbl} Take 1 Univers te-atropine 0-08 tablet by ity of 2.5-0.025 00:00: mouth [place] mg tablet 00 every 8 Medical (eight) Branch hours. loperamide 2020-1 Yes [id number] 4mg Take 2 U nivers 2 mg 0-08 capsules ity of capsule 00:00: by mouth 4 [place] 00 (four) Medical times Branch daily. ibuprofen 2020- Yes [id number] 800mg Take 1 U nivers 800 mg 0-08 tablet by ity of tablet 00:00: mouth [place] 00 every 6 Medical (six) Branch hours as needed for Pain (scale 4-6). psyllium 2020-1 Yes [id number] 3{packe Take 3 Univers 3.4 gram 0-08 t} Packets by ity o f packet 00:00: mouth 3 [place] 00 (three) Medical times Branch daily. diphenoxyla 2020-1 Yes [id number] 1{tbl} Take 1 Univers te-atropine 0-08 tablet by ity of 2.5-0.025 00:00: mouth [place] mg tablet 00 every 8 Medical (eight) Branch hours. loperamide 2020-1 Yes [id number] 4mg Take 2 U nivers 2 mg 0-08 capsules ity of capsule 00:00: by mouth 4 [place] 00 (four) Medical times Branch daily. ibuprofen 2020-1 Yes [id number] 800mg Take 1 U nivers 800 mg 0-08 tablet by ity of tablet 00:00: mouth [place] 00 every 6 Medical (six) Branch hours as needed for Pain (scale 4-6). psyllium 2020-1 Yes [id number] 3{packe Take 3 Univers 3.4 gram 0-08 t} Packets by ity o f packet 00:00: mouth 3 [place] 00 (three) Medical times Branch daily. diphenoxyla 2020-1 Yes [id number] 1{tbl} Take 1 Univers te-atropine 0-08 tablet by ity of 2.5-0.025 00:00: mouth [place] mg tablet 00 every 8 Medical (eight) Branch hours. loperamide 2020- Yes [id number] 4mg Take 2 U nivers 2 mg 0-08 capsules ity of capsule 00:00: by mouth 4 [place] 00 (four) Medical times Branch daily. ibuprofen 2020- Yes [id number] 800mg Take 1 U nivers 800 mg 0-08 tablet by ity of tablet 00:00: mouth [place] 00 every 6 Medical (six) Branch hours as needed for Pain (scale 4-6). psyllium 2020- Yes [id number] 3{packe Take 3 Univers 3.4 gram 0-08 t} Packets by ity o f packet 00:00: mouth 3 [place] 00 (three) Medical times Branch daily. diphenoxyla 2020- Yes [id number] 1{tbl} Take 1 Univers te-atropine 0-08 tablet by ity of 2.5-0.025 00:00: mouth [place] mg tablet 00 every 8 Medical (eight) Branch hours. loperamide 2020- Yes [id number] 4mg Take 2 U nivers 2 mg 0-08 capsules ity of capsule 00:00: by mouth 4 [place] 00 (four) Medical times Branch daily. ibuprofen 2020- Yes [id number] 800mg Take 1 U nivers 800 mg 0-08 tablet by ity of tablet 00:00: mouth [place] 00 every 6 Medical (six) Branch hours as needed for Pain (scale 4-6). psyllium 2020-1 Yes [id number] 3{packe Take 3 Univers 3.4 gram 0-08 t} Packets by ity o f packet 00:00: mouth 3 [place] 00 (three) Medical times Branch daily. diphenoxyla 2020- Yes [id number] 1{tbl} Take 1 Univers te-atropine 0-08 tablet by ity of 2.5-0.025 00:00: mouth [place] mg tablet 00 every 8 Medical (eight) Branch hours. loperamide 2020-1 Yes [id number] 4mg Take 2 U nivers 2 mg 0-08 capsules ity of capsule 00:00: by mouth 4 [place] 00 (four) Medical times Branch daily. ibuprofen 2020-1 Yes [id number] 800mg Take 1 U nivers 800 mg 0-08 tablet by ity of tablet 00:00: mouth [place] 00 every 6 Medical (six) Branch hours as needed for Pain (scale 4-6). psyllium 2020-1 Yes [id number] 3{packe Take 3 Univers 3.4 gram 0-08 t} Packets by ity o f packet 00:00: mouth 3 [place] 00 (three) Medical times Branch daily. diphenoxyla 2020-1 Yes [id number] 1{tbl} Take 1 Univers te-atropine 0-08 tablet by ity of 2.5-0.025 00:00: mouth [place] mg tablet 00 every 8 Medical (eight) Branch hours. loperamide 2020-1 Yes [id number] 4mg Take 2 U nivers 2 mg 0-08 capsules ity of capsule 00:00: by mouth 4 [place] 00 (four) Medical times Branch daily. ibuprofen 2020-1 Yes [id number] 800mg Take 1 U nivers 800 mg 0-08 tablet by ity of tablet 00:00: mouth [place] 00 every 6 Medical (six) Branch hours as needed for Pain (scale 4-6). psyllium 2020-1 Yes [id number] 3{packe Take 3 Univers 3.4 gram 0-08 t} Packets by ity o f packet 00:00: mouth 3 [place] 00 (three) Medical times Branch daily. diphenoxyla 2020-1 Yes [id number] 1{tbl} Take 1 Univers te-atropine 0-08 tablet by ity of 2.5-0.025 00:00: mouth [place] mg tablet 00 every 8 Medical (eight) Branch hours. loperamide 2020-1 Yes [id number] 4mg Take 2 U nivers 2 mg 0-08 capsules ity of capsule 00:00: by mouth 4 [place] 00 (four) Medical times Branch daily. ibuprofen 2020-1 Yes [id number] 800mg Take 1 U nivers 800 mg 0-08 tablet by ity of tablet 00:00: mouth [place] 00 every 6 Medical (six) Branch hours as needed for Pain (scale 4-6). acetaminoph 2019-08- No [id number] 650mg Take 2 Univers en 325 mg 0-08 10-09 tablets by ity of tablet 00:00: 04:59 mouth [place] 00 :00 every 6 Medical (six) Branch hours as needed for Pain (scale 1-3). acetaminoph 2019-08 No [id number] 650mg Take 2 Univers en 325 mg 0-08 10-09 tablets by ity of tablet 00:00: 04:59 mouth [place] 00 :00 every 6 Medical (six) Branch hours as needed for Pain (scale 1-3). acetaminoph 2019-08 No [id number] 650mg Take 2 Univers en 325 mg 0-08 10-09 tablets by ity of tablet 00:00: 04:59 mouth [place] 00 :00 every 6 Medical (six) Branch hours as needed for Pain (scale 1-3). acetaminoph 2019-08 No [id number] 650mg Take 2 Univers en 325 mg 0-08 10-09 tablets by ity of tablet 00:00: 04:59 mouth [place] 00 :00 every 6 Medical (six) Branch hours as needed for Pain (scale 1-3). acetaminoph 2019-08 No [id number] 650mg Take 2 Univers en 325 mg 0-08 10-09 tablets by ity of tablet 00:00: 04:59 mouth [place] 00 :00 every 6 Medical (six) Branch hours as needed for Pain (scale 1-3). acetaminoph 2019-08 No [id number] 650mg Take 2 Univers en 325 mg 0-08 10-09 tablets by ity of tablet 00:00: 04:59 mouth [place] 00 :00 every 6 Medical (six) Branch hours as needed for Pain (scale 1-3). acetaminoph 2019-08- No [id number] 650mg Take 2 Univers en 325 mg 0-08 10-09 tablets by ity of tablet 00:00: 04:59 mouth [place] 00 :00 every 6 Medical (six) Branch hours as needed for Pain (scale 1-3). acetaminoph 2019-08 No [id number] 650mg Take 2 Univers en 325 mg 0-08 10-09 tablets by ity of tablet 00:00: 04:59 mouth [place] 00 :00 every 6 Medical (six) Branch hours as needed for Pain (scale 1-3). acetaminoph 2019-08 No [id number] 650mg Take 2 Univers en 325 mg 0-08 10-09 tablets by ity of tablet 00:00: 04:59 mouth [place] 00 :00 every 6 Medical (six) Branch hours as needed for Pain (scale 1-3). acetaminoph 2019-08 No [id number] 650mg Take 2 Univers en 325 mg 0-08 10-09 tablets by ity of tablet 00:00: 04:59 mouth [place] 00 :00 every 6 Medical (six) Branch hours as needed for Pain (scale 1-3). acetaminoph 2019-08 [id number] 650mg Take 2 Univers en 325 mg 0-08 10-09 tablets by ity of tablet 00:00: 04:59 mouth [place] 00 :00 every 6 Medical (six) Branch hours as needed for Pain (scale 1-3). acetaminoph 2019-08 [id number] 650mg Take 2 Univers en 325 mg 0-08 10-09 tablets by ity of tablet 00:00: 04:59 mouth [place] 00 :00 every 6 Medical (six) Branch hours as needed for Pain (scale 1-3). acetaminoph 2019-08 [id number] 650mg Take 2 Univers en 325 mg 0-08 10-09 tablets by ity of tablet 00:00: 04:59 mouth [place] 00 :00 every 6 Medical (six) Branch hours as needed for Pain (scale 1-3). acetaminoph 2019-08 No [id number] 650mg Take 2 Univers en 325 mg 0-08 10-09 tablets by ity of tablet 00:00: 04:59 mouth [place] 00 :00 every 6 Medical (six) Branch hours as needed for Pain (scale 1-3). psyllium 2019-08 No [id number] 3{packe Take 3 Univers 3.4 gram 0-08 09-16 t} Packets by ity of packet 00:00: 00:00 mouth 3 [place] 00 :00 (three) Medical times Branch daily. diphenoxyla 2019-08 No [id number] 1{tbl} Take 1 Univers te-atropine 0-08 -16 tablet by it y of 2.5-0.025 00:00: 00:00 mouth [place] mg tablet 00 :00 every 8 Medical (eight) Branch hours. loperamide 2019-08 No [id number] 4mg Take 2 Univers 2 mg 0-08 -16 capsules ity of capsule 00:00: 00:00 by mouth 4 [place] 00 :00 (four) Medical times Branch daily. ibuprofen 2019-08 [id number] 800mg Take 1 Univers 800 mg 0-08 -16 tablet by ity of tablet 00:00: 00:00 mouth [place] 00 :00 every 6 Medical (six) Branch hours as needed for Pain (scale 4-6). acetaminoph 2019-08 [id number] 650mg Take 2 Univers en 325 mg 0-08 -16 tablets by ity of tablet 00:00: 00:00 mouth [place] 00 :00 every 6 Medical (six) Branch hours as needed for Pain (scale 1-3). psyllium 2019-08 No [id number] 3{packe Take 3 Univers 3.4 gram 0-08 -16 t} Packets by ity of packet 00:00: 00:00 mouth 3 [place] 00 :00 (three) Medical times Branch daily. diphenoxyla 2019-08 No [id number] 1{tbl} Take 1 Univers te-atropine 0-04 01-16 tablet by it y of 2.5-0.025 00:00: 00:00 mouth [place] mg tablet 00 :00 every 8 Medical (eight) Branch hours. loperamide 2019-08 No [id number] 4mg Take 2 Univers 2 mg 0-08 -16 capsules ity of capsule 00:00: 00:00 by mouth 4 [place] 00 :00 (four) Medical times Branch daily. ibuprofen 2019-08 No [id number] 800mg Take 1 Univers 800 mg 0-08 -16 tablet by ity of tablet 00:00: 00:00 mouth [place] 00 :00 every 6 Medical (six) Branch hours as needed for Pain (scale 4-6). acetaminoph 2019-08 No [id number] 650mg Take 2 Univers en 325 mg 0-08 -16 tablets by ity of tablet 00:00: 00:00 mouth [place] 00 :00 every 6 Medical (six) Branch hours as needed for Pain (scale 1-3). acetaminoph 2019-08- No [id number] 650mg Take 2 Univers en 325 mg 0-08 10-08 tablets by ity of tablet 00:00: 00:00 mouth [place] 00 :00 every 6 Medical (six) Branch hours as needed for Pain (scale 1-3). ibuprofen 2019-08- No [id number] 800mg Take 1 Univers 800 mg 0-08 10-08 tablet by ity of tablet 00:00: 00:00 mouth [place] 00 :00 every 6 Medical (six) Branch hours as needed for Pain (scale 4-6). loperamide 2019-08- No [id number] 4mg Take 2 Univers 2 mg 0-08 10-08 capsules ity of capsule 00:00: 00:00 by mouth 4 [place] 00 :00 (four) Medical times Branch daily. diphenoxyla 2019-08- No [id number] 1{tbl} Take 1 Univers te-atropine 0-08 10-08 tablet by it y of 2.5-0.025 00:00: 00:00 mouth [place] mg tablet 00 :00 every 8 Medical (eight) Branch hours. psyllium 2019-08- No [id number] 3{packe Take 3 Univers 3.4 gram 0-08 [...] Medi mariusz (8 %) IV 05/29/20 at [facility] Piggyback 4 0730, g Routine magnesium 2020- 2020- No 2g 2 g, IV Univ ers sulfate in 0-12 31- Piggyback, it y of water 2 13:30: [...] No 1{packe 1 Packet, Univers (METAMUCIL 0-05 -06 t} Oral, BID, it y of FIBER 01:00: 12:18 First dose [place] SINGLES) 00 :14 on [facility] 3.4 gram 05/27/20 at [facility] packet 1 1999, Packet Until Discontinu ed, Routine loperamide 2019-08 2020- No 4mg 4 mg, Unive rs (IMODIUM 0-04 10-05 Oral, TID, ity of A-D) 19:00: 12:56 First dose [place] capsule 4 00 :31 (after Medical mg last Branch modificati on) on [place] 05/27/20 at 1400, Until Discontinu ed, Routine [...] Medi mariusz (8 %) IV 05/24/20 at [facility] h Piggyback 4 1715, g [...] dose, Thu Medica l mL) 05/23/20 at [place] injection 1015, 100 mL Routine docusate 2019- [...] 00 :16 dose on Medica l mg [facility] 05/22/20 at 2330, Until Discontinu ed, JOÃO
Re ason for Anti-Infec tive: Documented Infection< br>Documen dain Infection Site: Abdominal< br>Duratio n of Therapy: 7 days ondansetron 2019-0 Yes 4mg 4 mg, Slow Univers (ZOFRAN 05-23 IV Push, ity of (PF)) 03:15: Administer [place] injection 4 50 over 15 Medic al mg Minutes, Branch Q8HPRN, Starting [facility] 05/22/20 at 2215, Until Discontinu ed, Routine, Nausea and Vomiting (N/V) D5W 0.45% 2019-0 Yes IV Univers NaCl 05-23 Infusion, ity of (1/2NS) 1 L 03:15: at 50 [place] + KCL 20 00 mL/hr, Medical mEq [...] 05-23 Oral, ity of (TYLENOL) 03:13: Q6HPRN, [place] tablet 650 36 Starting Medic al mg Tue Branch 05/22/20 at 2213, Until Discontinu ed, Routine, Pain (scale 1-3) morpHINE 2019-0 2020- No 4mg 4 mg, Slow Un piyush injection 4 05-22 IV Push, ity of mg 03:30: 03:13 ONCE, 1 [place] 00 :00 dose, [facility] 05/21/20 at Branch 2230, STAT piperacilli 2019-0 2020- No 3.375g 3.375 g, Univers n-tazobacta 05-20 IV ity of m (ZOSYN) 10:15: 22:14 [place]back, [place] 3.375 g in 00 :00 ONCE, 1 Medica l NaCl 0.9% dose, [place] (NS) 100 mL 05/20/20 at MINI-BAG [...] 1,000 mL 00 :00 IV Medical Piggyback, [place] ONCE, 1 dose, 05/19/20 at 2245, STAT ibuprofen 2020-0 Yes [id number] 800mg Take 1 U nivers 800 mg 9-18 tablet by ity of tablet 00:00: mouth [place] 00 every 6 Medical (six) Branch hours as needed for Pain (scale 4-6). levoFLOXaci 2020-0 Yes [id number] 750mg Take 1 Univers n 750 mg 9-18 tablet by ity of tablet 00:00: mouth [place] 00 every 24 Medical (twenty-fo Branch ur) hours. loperamide 2020-0 Yes [id number] 2mg Take 1 U nivers 2 mg 9-18 capsule by ity of capsule 00:00: mouth [place] 00 daily. Medical Branch ibuprofen 2020-0 Yes [id number] 800mg Take 1 U nivers 800 mg 9-18 tablet by ity of tablet 00:00: mouth [place] 00 every 6 Medical (six) Branch hours as needed for Pain (scale 4-6). levoFLOXaci 2020-0 Yes [id number] 750mg Take 1 Univers n 750 mg 9-18 tablet by ity of tablet 00:00: mouth [place] 00 every 24 Medical (twenty-fo Branch ur) hours. loperamide 2020-0 Yes [id number] 2mg Take 1 U nivers 2 mg 9-18 capsule by ity of capsule 00:00: mouth [place] 00 daily. Medical Branch ibuprofen 2020-0 Yes [id number] 800mg Take 1 U nivers 800 mg 9-18 tablet by ity of tablet 00:00: mouth [place] 00 every 6 Medical (six) Branch hours as needed for Pain (scale 4-6). levoFLOXaci 2020-0 Yes [id number] 750mg Take 1 Univers n 750 mg 9-18 tablet by ity of tablet 00:00: mouth [place] 00 every 24 Medical (twenty-fo Branch ur) hours. loperamide 2020-0 Yes [id number] 2mg Take 1 U nivers 2 mg 9-18 capsule by ity of capsule 00:00: mouth [place] 00 daily. Medical Branch ibuprofen 2020-0 Yes [id number] 800mg Take 1 U nivers 800 mg 9-18 tablet by ity of tablet 00:00: mouth [place] 00 every 6 Medical (six) Branch hours as needed for Pain (scale 4-6). levoFLOXaci 2020-0 Yes [id number] 750mg Take 1 Univers n 750 mg 9-18 tablet by ity of tablet 00:00: mouth [place] 00 every 24 Medical (twenty-fo Branch ur) hours. loperamide 2020-0 Yes [id number] 2mg Take 1 U nivers 2 mg 9-18 capsule by ity of capsule 00:00: mouth [place] 00 daily. Medical Branch ibuprofen 2020-0 Yes [id number] 800mg Take 1 U nivers 800 mg 9-18 tablet by ity of tablet 00:00: mouth [place] 00 every 6 Medical (six) Branch hours as needed for Pain (scale 4-6). levoFLOXaci 2020-0 Yes [id number] 750mg Take 1 Univers n 750 mg 9-18 tablet by ity of tablet 00:00: mouth [place] 00 every 24 Medical (twenty-fo Branch ur) hours. loperamide 2020-0 Yes [id number] 2mg Take 1 U nivers 2 mg 9-18 capsule by ity of capsule 00:00: mouth [place] 00 daily. Medical Branch ibuprofen 2020-0 Yes [id number] 800mg Take 1 U nivers 800 mg 9-18 tablet by ity of tablet 00:00: mouth [place] 00 every 6 Medical (six) Branch hours as needed for Pain (scale 4-6). levoFLOXaci 2020-0 Yes [id number] 750mg Take 1 Univers n 750 mg 9-18 tablet by ity of tablet 00:00: mouth [place] 00 every 24 Medical (twenty-fo Branch ur) hours. loperamide 2020-0 Yes [id number] 2mg Take 1 U nivers 2 mg 9-18 capsule by ity of capsule 00:00: mouth [place] 00 daily. Medical Branch ibuprofen 2020-0 Yes [id number] 800mg Take 1 U nivers 800 mg 9-18 tablet by ity of tablet 00:00: mouth [place] 00 every 6 Medical (six) Branch hours as needed for Pain (scale 4-6). levoFLOXaci 2020-0 Yes [id number] 750mg Take 1 Univers n 750 mg 9-18 tablet by ity of tablet 00:00: mouth [place] 00 every 24 Medical (twenty-fo Branch ur) hours. loperamide 2020-0 Yes [id number] 2mg Take 1 U nivers 2 mg 9-18 capsule by ity of capsule 00:00: mouth [place] 00 daily. Medical Branch ibuprofen 2020-0 Yes [id number] 800mg Take 1 U nivers 800 mg 9-18 tablet by ity of tablet 00:00: mouth [place] 00 every 6 Medical (six) Branch hours as needed for Pain (scale 4-6). levoFLOXaci 2020-0 Yes [id number] 750mg Take 1 Univers n 750 mg 9-18 tablet by ity of tablet 00:00: mouth [place] 00 every 24 Medical (twenty-fo Branch ur) hours. loperamide 2020-0 Yes [id number] 2mg Take 1 U nivers 2 mg 9-18 capsule by ity of capsule 00:00: mouth [place] 00 daily. Medical Branch ibuprofen 2020-0 Yes [id number] 800mg Take 1 U nivers 800 mg 9-18 tablet by ity of tablet 00:00: mouth [place] 00 every 6 Medical (six) Branch hours as needed for Pain (scale 4-6). levoFLOXaci 2020-0 Yes [id number] 750mg Take 1 Univers n 750 mg 9-18 tablet by ity of tablet 00:00: mouth [place] 00 every 24 Medical (twenty-fo Branch ur) hours. loperamide 2020-0 Yes [id number] 2mg Take 1 U nivers 2 mg 9-18 capsule by ity of capsule 00:00: mouth [place] 00 daily. Medical Branch ibuprofen 2020-0 Yes [id number] 800mg Take 1 U nivers 800 mg 9-18 tablet by ity of tablet 00:00: mouth [place] 00 every 6 Medical (six) Branch hours as needed for Pain (scale 4-6). levoFLOXaci 2020-0 Yes [id number] 750mg Take 1 Univers n 750 mg 9-18 tablet by ity of tablet 00:00: mouth [place] 00 every 24 Medical (twenty-fo Branch ur) hours. loperamide 2020-0 Yes [id number] 2mg Take 1 U nivers 2 mg 9-18 capsule by ity of capsule 00:00: mouth [place] 00 daily. Medical Branch ibuprofen 2020-0 Yes [id number] 800mg Take 1 U nivers 800 mg 9-18 tablet by ity of tablet 00:00: mouth [place] 00 every 6 Medical (six) Branch hours as needed for Pain (scale 4-6). levoFLOXaci 2020-0 Yes [id number] 750mg Take 1 Univers n 750 mg 9-18 tablet by ity of tablet 00:00: mouth [place] 00 every 24 Medical (twenty-fo Branch ur) hours. loperamide 2020-0 Yes [id number] 2mg Take 1 U nivers 2 mg 9-18 capsule by ity of capsule 00:00: mouth [place] 00 daily. Medical Branch ibuprofen 2020-0 Yes [id number] 800mg Take 1 U nivers 800 mg 9-18 tablet by ity of tablet 00:00: mouth [place] 00 every 6 Medical (six) Branch hours as needed for Pain (scale 4-6). levoFLOXaci 2020-0 Yes [id number] 750mg Take 1 Univers n 750 mg 9-18 tablet by ity of tablet 00:00: mouth [place] 00 every 24 Medical (twenty-fo Branch ur) hours. loperamide 2020-0 Yes [id number] 2mg Take 1 U nivers 2 mg 9-18 capsule by ity of capsule 00:00: mouth [place] 00 daily. Medical Branch ibuprofen 2020-0 Yes [id number] 800mg Take 1 U nivers 800 mg 9-18 tablet by ity of tablet 00:00: mouth [place] 00 every 6 Medical (six) Branch hours as needed for Pain (scale 4-6). levoFLOXaci 2020-0 Yes [id number] 750mg Take 1 Univers n 750 mg 9-18 tablet by ity of tablet 00:00: mouth [place] 00 every 24 Medical (twenty-fo Branch ur) hours. loperamide 2020-0 Yes [id number] 2mg Take 1 U nivers 2 mg 9-18 capsule by ity of capsule 00:00: mouth [place] 00 daily. Medical Branch acetaminoph 2020-0 2021- No [id number] 650mg Take 2 Univers en 325 mg 9-18 -19 tablets by ity of tablet 00:00: 04:59 mouth [place] 00 :00 every 6 Medical (six) Branch hours as needed for Pain (scale 1-3). acetaminoph [id number] 650mg Take 2 Univers en 325 mg 9-18 09-19 tablets by ity of tablet 00:00: 04:59 mouth [place] 00 :00 every 6 Medical (six) Branch hours as needed for Pain (scale 1-3). acetaminoph [id number] 650mg Take 2 Univers en 325 mg 9-18 09-19 tablets by ity of tablet 00:00: 04:59 mouth [place] 00 :00 every 6 Medical (six) Branch hours as needed for Pain (scale 1-3). acetaminoph [id number] 650mg Take 2 Univers en 325 mg 9-18 -19 tablets by ity of tablet 00:00: 04:59 mouth [place] 00 :00 every 6 Medical (six) Branch hours as needed for Pain (scale 1-3). acetaminoph [id number] 650mg Take 2 Univers en 325 mg 9-18 -19 tablets by ity of tablet 00:00: 04:59 mouth [place] 00 :00 every 6 Medical (six) Branch hours as needed for Pain (scale 1-3). acetaminoph [id number] 650mg Take 2 Univers en 325 mg 9-18 -19 tablets by ity of tablet 00:00: 04:59 mouth [place] 00 :00 every 6 Medical (six) Branch hours as needed for Pain (scale 1-3). acetaminoph [id number] 650mg Take 2 Univers en 325 mg 9-18 09-19 tablets by ity of tablet 00:00: 04:59 mouth [place] 00 :00 every 6 Medical (six) Branch hours as needed for Pain (scale 1-3). acetaminoph [id number] 650mg Take 2 Univers en 325 mg 9-18 09-19 tablets by ity of tablet 00:00: 04:59 mouth [place] 00 :00 every 6 Medical (six) Branch hours as needed for Pain (scale 1-3). acetaminoph [id number] 650mg Take 2 Univers en 325 mg 9-18 09-19 tablets by ity of tablet 00:00: 04:59 mouth [place] 00 :00 every 6 Medical (six) Branch hours as needed for Pain (scale 1-3). acetaminoph [id number] 650mg Take 2 Univers en 325 mg 9-18 09-19 tablets by ity of tablet 00:00: 04:59 mouth [place] 00 :00 every 6 Medical (six) Branch hours as needed for Pain (scale 1-3). acetaminoph [id number] 650mg Take 2 Univers en 325 mg 9-18 09-19 tablets by ity of tablet 00:00: 04:59 mouth [place] 00 :00 every 6 Medical (six) Branch hours as needed for Pain (scale 1-3). acetaminoph [id number] 650mg Take 2 Univers en 325 mg 9-18 09-19 tablets by ity of tablet 00:00: 04:59 mouth [place] 00 :00 every 6 Medical (six) Branch hours as needed for Pain (scale 1-3). acetaminoph [id number] 650mg Take 2 Univers en 325 mg 9-18 09-19 tablets by ity of tablet 00:00: 04:59 mouth [place] 00 :00 every 6 Medical (six) Branch hours as needed for Pain (scale 1-3). acetaminoph [id number] 650mg Take 2 Univers en 325 mg 9-18 10-08 tablets by ity of tablet 00:00: 00:00 mouth [place] 00 :00 every 6 Medical (six) Branch hours as needed for Pain (scale 1-3). ibuprofen [id number] 800mg Take 1 Univers 800 mg 9-18 10-08 tablet by ity of tablet 00:00: 00:00 mouth [place] 00 :00 every 6 Medical (six) Branch hours as needed for Pain (scale 4-6). levoFLOXaci 2019- [id number] 750mg Take 1 Univers n 750 mg 9-18 10-08 tablet by ity o f tablet 00:00: 00:00 mouth [place] 00 :00 every 24 Medical (twenty-fo Branch ur) hours. loperamide 2019- No [id number] 2mg Take 1 Univers 2 mg 9-18 [...] 00 dose on Medica l mg Thu [place] 05/09/20 at 1900, Until Discontinu ed, JOÃO
Re ason for Anti-Infec tive: Documented Infection< br>Documen dain Infection Site: Abdominal< br>Duratio n of Therapy: 14 days metroNIDAZO 2019-0 2020- No 500mg 500 mg, U nivers LE (FLAGYL) 05-09 Oral, Q8H it y of tablet 500 21:30: 13:14 ABX, First [place] mg 00 :28 dose on Medical [facility] Branch 05/09/20 at 1630, Until Discontinu ed, Routine
Reason for Anti-Infec tive: Documented Infection< br>Documen dain Infection Site: Abdominal< br>Duratio n of Therapy: 14 days magnesium 2019-0 2020- No 4g 4 g, IV Univ ers sulfate in 05-0815 Piggyback, it y of water 4 12:30: 12:54 ONCE, 1 [place] gram/50 mL 00 :00 dose, Lo Wyman mariusz (8 %) IV 05/08/20 at Branc h Piggyback 4 0730, g Routine loperamide 2019-0 Yes 2mg 2 mg, Univer s (IMODIUM 15 Oral, Q4H, ity o f A-D) 01:00: First dose [place] capsule 2 00 on Mon Medical mg 05/07/20 at Branch 2000, Until Discontinu ed, Routine lactated 2020-0 2020- No 1000mL at 999 Univ ers ringers IV 05-07 09-14 mL/hr, ity of infusion 22:15: 22:21 1,000 mL, [place] 1,000 mL 00 :00 Intravenou Medic al s, ONCE, 1 Branch dose, 05/07/20 at 1715, Routine lactated 2020-0 2020- No 1000mL at 999 Univ ers ringers IV 05-07 09-14 mL/hr, ity of infusion 13:15: 14:09 1,000 mL, [place] 1,000 mL 00 :00 Intravenou Medic al s, ONCE, 1 [place] dose, [facility] 05/07/20 at 0815, Routine HYDROcodone 2020-0 Yes 1{tbl} 1 tablet, Univers -acetaminop 05-07 Oral, ity of hen (NORCO 13:00: Q6HPRN, [place] 5) 5-325 mg 00 Starting [facility] tablet 1 Mon [place] tablet 05/07/20 at 0800, Until Discontinu ed, Routine, Pain (scale 4-6) magnesium 2020-0 2020- No 2g 2 g, IV Univ ers sulfate in 05-07 Piggyback, it y of water 2 13:00: 15:10 ONCE, 1 [place] gram/50 mL 00 :00 dose, [facility] (4 %) 05/07/20 at [place] infusion 2 0800, g Routine ibuprofen 2020-0 Yes 800mg 800 mg, Univ ers (IBU) 05-07 Oral, ity of tablet 800 12:45: Q6HPRN, [place] mg 22 Starting [facility] 05/07/20 at 0745, Until Discontinu ed, Routine, Pain (scale 4-6) FENTanyl PF 2020-0 2020- No Slow IV Un piyush (SUBLIMAZE 05-05 Push, PRN, it y of (PF)) 18:53: 20:05 Starting [place] injection 39 :03 [facility] 05/05/20 at [place] 1353, Until Discontinu ed, Routine lidocaine 2020-0 2020- No PRN, Univers 1% (PF) 05-05 Starting ity of (XYLOCAINE) 18:26: 18:26 [facility] injection 34 :34 05/05/20 at [facility] 1326, Branch Until Discontinu ed, Routine NaCl 0.9% 2020-0 2020- No CONTINUOUS U nivers (NS) bolus 05-05 PRN, ity of infusion 18:15: 18:15 [place] 06 :06 [facility] 05/05/20 at [place] 1315, Until Discontinu ed, STAT D5W 0.45% [...] First dose Medica l I.V.) RTU on [facility] Branch IV infusion 05/05/20 at 500 mg [...] at 0745, Routine, Pain (scale 4-6) acetaminoph 2019- Yes 650mg 650 mg, Un piyush en 05-05 Oral, ity of (TYLENOL) 06:15: Q6HPRN, [place] tablet 650 23 Starting Medic al mg [...] 05/04/20 at 2230, STAT FENTanyl PF 2019-0 2019- No 50ug 50 mcg, Un piyush [...] No 60mg 60 mg, Unive rs (TORADOL) 9-10 09-10 Intramuscu ity of injection 05:00: 05:14 [...] Indication s: acute pain ibuprofen 2020-0 Yes [id number] 400mg Take 2 Univers 200 mg 9-08 tablets by ity of tablet 00:00: mouth [place] 00 every 6 Medical (six) Branch hours as needed for Pain (scale 1-3). ibuprofen 2020-0 Yes [id number] 400mg Take 2 Univers 200 mg 9-08 tablets by ity of tablet 00:00: mouth [place] 00 every 6 Medical (six) Branch hours as needed for Pain (scale 1-3). ibuprofen 2020-0 Yes [id number] 400mg Take 2 Univers 200 mg 9-08 tablets by ity of tablet 00:00: mouth [place] 00 every 6 Medical (six) Branch hours as needed for Pain (scale 1-3). ibuprofen 2020-0 Yes [id number] 400mg Take 2 Univers 200 mg 9-08 tablets by ity of tablet 00:00: mouth [place] 00 every 6 Medical (six) Branch hours as needed for Pain (scale 1-3). ibuprofen 2020-0 Yes [id number] 400mg Take 2 Univers 200 mg 9-08 tablets by ity of tablet 00:00: mouth [place] 00 every 6 Medical (six) Branch hours as needed for Pain (scale 1-3). ibuprofen 2020-0 Yes [id number] 400mg Take 2 Univers 200 mg 9-08 tablets by ity of tablet 00:00: mouth [place] 00 every 6 Medical (six) Branch hours as needed for Pain (scale 1-3). ibuprofen 2020-0 Yes [id number] 400mg Take 2 Univers 200 mg 9-08 tablets by ity of tablet 00:00: mouth [place] 00 every 6 Medical (six) Branch hours as needed for Pain (scale 1-3). acetaminoph 2020-0 2020- No [id number] 650mg Take 2 Univers en 9-08 09-09 tablets by ity of (TYLENOL) 00:00: 04:59 mouth [place] 325 mg 00 :00 every 6 Medical tablet (six) Branch hours as needed for Pain (scale 4-6). acetaminoph 2020-0 2020- No [id number] 650mg Take 2 Univers en 9-08 09-09 tablets by ity of (TYLENOL) 00:00: 04:59 mouth [place] 325 mg 00 :00 every 6 Medical tablet (six) Branch hours as needed for Pain (scale 4-6). acetaminoph 2020-0 2020- No [id number] 650mg Take 2 Univers en 05-01 tablets by ity of (TYLENOL) 00:00: 04:59 mouth [place] 325 mg 00 :00 every 6 Medical tablet (six) Branch hours as needed for Pain (scale 4-6). acetaminoph 2020- No [id number] 650mg Take 2 Univers en 05-01 tablets by ity of (TYLENOL) 00:00: 04:59 mouth [place] 325 mg 00 :00 every 6 Medical tablet (six) Branch hours as needed for Pain (scale 4-6). acetaminoph 2020- No [id number] 650mg Take 2 Univers en 05-01 tablets by ity of (TYLENOL) 00:00: 04:59 mouth [place] 325 mg 00 :00 every 6 Medical tablet (six) Branch hours as needed for Pain (scale 4-6). acetaminoph 2020- No [id number] 650mg Take 2 Univers en 05-01 tablets by ity of (TYLENOL) 00:00: 04:59 mouth [place] 325 mg 00 :00 every 6 Medical tablet (six) Branch hours as needed for Pain (scale 4-6). acetaminoph 2020- No [id number] 650mg Take 2 Univers en 05-01 tablets by ity of (TYLENOL) 00:00: 04:59 mouth [place] 325 mg 00 :00 every 6 Medical tablet (six) Branch hours as needed for Pain (scale 4-6). ciprofloxac 2019- No [id number] 750mg Take 1 Univers in HCl 750 05-01 tablet by ity of mg tablet 00:00: 04:59 mouth [place] 00 :00 every 12 Medical (twelve) Branch hours for 14 days. amoxicillin 2019-2019- No [id number] 1{tbl} Take 1 Univers -clavulanat 05-01 tablet by it y of e 00:00: 04:59 mouth 2 [place] (AUGMENTIN) 00 :00 (two) Medical 875-125 mg times Branch per tablet daily for 14 days. ciprofloxac 2019-2019- No [id number] 750mg Take 1 Univers in HCl 750 05-01 tablet by ity of mg tablet 00:00: 04:59 mouth [place] 00 :00 every 12 Medical (twelve) Branch hours for 14 days. amoxicillin 2019-2019- No [id number] 1{tbl} Take 1 Univers -clavulanat 05-01 tablet by it y of e 00:00: 04:59 mouth 2 [place] (AUGMENTIN) 00 :00 (two) Medical 875-125 mg times Branch per tablet daily for 14 days. ciprofloxac 2019-2019- No [id number] 750mg Take 1 Univers in HCl 750 05-01 tablet by ity of mg tablet 00:00: 04:59 mouth [place] 00 :00 every 12 Medical (twelve) Branch hours for 14 days. amoxicillin 2019-2019- No [id number] 1{tbl} Take 1 Univers -clavulanat 05-01 tablet by it y of e 00:00: 04:59 mouth 2 [place] (AUGMENTIN) 00 :00 (two) Medical 875-125 mg times Branch per tablet daily for 14 days. ciprofloxac 2019-2019- No [id number] 750mg Take 1 Univers in HCl 750 05-01 tablet by ity of mg tablet 00:00: 04:59 mouth [place] 00 :00 every 12 Medical (twelve) Branch hours for 14 days. amoxicillin 2019-2019- No [id number] 1{tbl} Take 1 Univers -clavulanat 05-01 tablet by it y of e 00:00: 04:59 mouth 2 [place] (AUGMENTIN) 00 :00 (two) Medical 875-125 mg times Branch per tablet daily for 14 days. ciprofloxac 2019-2019- No [id number] 750mg Take 1 Univers in HCl 750 05-01 tablet by ity of mg tablet 00:00: 04:59 mouth [place] 00 :00 every 12 Medical (twelve) Branch hours for 14 days. amoxicillin 2020-2019- No [id number] 1{tbl} Take 1 Univers -clavulanat 05-01 tablet by it y of e 00:00: 04:59 mouth 2 [place] (AUGMENTIN) 00 :00 (two) Medical 875-125 mg times Branch per tablet daily for 14 days. ciprofloxac 2019-2019- No [id number] 750mg Take 1 Univers in HCl 750 05-01 tablet by ity of mg tablet 00:00: 04:59 mouth [place] 00 :00 every 12 Medical (twelve) Branch hours for 14 days. amoxicillin 2019-2019- No [id number] 1{tbl} Take 1 Univers -clavulanat 05-01 tablet by it y of e 00:00: 04:59 mouth 2 [place] (AUGMENTIN) 00 :00 (two) Medical 875-125 mg times Branch per tablet daily for 14 days. ciprofloxac 2019-2019- No [id number] 750mg Take 1 Univers in HCl 750 05-01 tablet by ity of mg tablet 00:00: 04:59 mouth [place] 00 :00 every 12 Medical (twelve) Branch hours for 14 days. amoxicillin 2019-2019- No [id number] 1{tbl} Take 1 Univers -clavulanat 05-01 tablet by it y of e 00:00: 04:59 mouth 2 [place] (AUGMENTIN) 00 :00 (two) Medical 875-125 mg times Branch per tablet daily for 14 days. acetaminoph 2019- 2020- No [id number] 650mg Take 2 Univers en 05-01 tablets by ity of (TYLENOL) 00:00: 00:00 mouth [place] 325 mg 00 :00 every 6 Medical tablet (six) Branch hours as needed for Pain (scale 4-6). ibuprofen 2019- 2020- No [id number] 400mg Take 2 Univers 200 mg 05-01 tablets by ity of tablet 00:00: 00:00 mouth [place] 00 :00 every 6 Medical (six) Branch hours as needed for Pain (scale 1-3). ciprofloxac 2019-2019- No [id number] 750mg Take 1 Univers in HCl 750 05-01 tablet by ity of mg tablet 00:00: 00:00 mouth [place] 00 :00 every 12 Medical (twelve) Branch hours for 14 days. amoxicillin 2019- 2020- No [id number] 1{tbl} Take 1 Univers -clavulanat 05-01 tablet by it y of e 00:00: 00:00 mouth 2 [place] (AUGMENTIN) 00 :00 (two) Medical 875-125 mg times Branch per tablet daily for 14 days. lactated 2019- 2020- No 1000mL at 999 [facility] ers ringers IV 04-25 09-02 mL/hr, ity of infusion 14:15: 13:31 1,000 mL, [place] 1,000 mL 00 :00 Intravenou Medic al s, ONCE, 1 Branch dose, 04/25/20 at 0915, Routine amoxicillin 2020-0 Yes 1{tbl} 1 tablet, Univers -clavulanat 04-25 Oral, ity of e 01:00: Q12H, [place] (AUGMENTIN) 00 First dose Me dical 875-125 [...] iohexol 2020-0 2020- No 100mL 100 mL, [facility] rs (OMNIPAQUE 04-23 Intravenou it y of 350 23:30: 23:30 s, ONCE, 1 [place] BULK-100 00 :00 dose, Mon Medica l mL) 04/23/20 at Branch injection 1830, 100 mL Routine lactated 2020-0 2020- No 1000mL at 125 [facility] ers ringers IV 04-2301 mL/hr, ity of [...] 00 First dose Med ical mg on [facility] 04/21/20 at 1800, Until Discontinu ed, JOÃO
Re ason for Anti-Infec tive: Documented Infection< br>Documen dain Infection Site: Abdominal< br>Duratio n of Therapy: 7 days aspirin 2019-0 Yes 81mg 81 mg, Univers chewable 04-21 Oral, ity of tablet 81 14:00: DAILY, [place] mg 00 First dose Medical on [facility] 04/21/20 at 0900, Until Discontinu ed, Routine multivitami 2019-0 Yes 1{tbl} 1 tablet, Univers n tablet 1 04-21 Oral, ity of tablet 14:00: DAILY, [place] 00 First dose Medical on [facility] 04/21/20 at 0900, Until Discontinu ed, Routine amoxicillin 2019-0 2020- No 500mg 500 mg, U nivers -pot 04-21 Oral, TID, ity of clavulanate 13:00: 14:44 First dose [place] 500 mg 00 :32 on [facility] Medical (AUGMENTIN 04/21/20 at [facility] 500) 0800, 500-125 mg Until tablet 500 Discontinu mg ed, JOÃO
Re ason for Anti-Infec tive: Documented Infection< br>Documen dain Infection Site: Abdominal< br>Duratio n of Therapy: 7 days ciprofloxac No 400mg 400 mg, IV Univers in [...] [place] mg 23 :[address] [facility] Branch 04/20/20 at 1031, Until Thu05/02/20 at [...] tablet 500 00 Starting Medic al mg [facility] Branch 04/19/20 at 0600, Until Discontinu ed, [...] :34 First dose Med ical mg on [facility] 04/17/20 at 2045, Until Discontinu ed, JOÃO
[...] on Thu04/17/20 at 1445, Last dose on [facility] 04/21/20 at 1445, 100 mL
Rest ricted use approved by: [employer]< br>Reason for Anti-Infec tive: Documented Infection< br>Documen dain Infection Site: Abdominal< br>Duratio n of Therapy: 7 days traMADoL 2019- No 50mg 50 mg, Univer s (ULTRAM) 04-17 Oral, ity of tablet 50 17:11: 15:31 Q6HPRN, [place] mg 09 :33 Starting Medical [facility] 04/17/20 at 1211, Until Thu04/20/20 at 1031, Routine, Pain (scale 4-6), Pain (scale 7-10) aspirin 2019- No 325mg 325 mg, Unive rs tablet 325 04-17 Oral, ity of mg 14:00: 15:33 DAILY, [place] 00 :03 First dose Medical on [facility] 04/17/20 at 0900, Until Discontinu ed, Routine lidocaine 2019- No PRN, Univers 1% (PF) 04-16 Starting ity of (XYLOCAINE) 21:17: 21:17 Mon [place] injection 53 :53 04/16/20 at [facility] 1617, Branch Until 04/16/20 at 1617, Routine FENTanyl PF 2019- No Slow IV Un piyush (SUBLIMAZE 04-16 Push, PRN, it y of (PF)) 21:16: 21:16 Starting [place] injection 07 :07 Mon Medical 04/16/20 at Branch 1616, Until 04/16/20 at 1616, Routine midazolam 2019- No IV Push, Uni vers (VERSED) 04-16 PRN, ity of injection 21:16: 21:16 Starting [place] 07 :07 Mon Medical 04/16/20 at Branch 1616, Until Thu04/16/20 [...] dose, Mon Medica l mL) 04/16/20 at [place] injection 0215, 120 mL Routine DAPTOmycin 2019- [...] 1431, Until Thu04/13/20 at 1455, Routine DAPTOmycin 2020- No 500mg 500 mg, IV Univers (CUBICIN) 04-13 Piggyback, ity of 500 mg in 01:00: 00:59 Q24H [place]X, [place] NaCl 0.9% 00 :00 4 doses, Medica l (NS) First dose Branch piggyback (after last modificati on) on Thu04/12/20 at 1999, Last dose on 04/15/20 at [...] mL First dose Br anch MINI-BAG on Thu04/12/20 at 1800, Last dose on 04/16/20 at 1800, 100 mL
Rest ricted use approved by: [employer]< br>Reason for Anti-Infec tive: Documented Infection< br>Documen dain Infection Site: Abdominal< br>Duratio n of Therapy: 7 days D5W 0.45% 2020- No IV Univers NaCl 04-12 Infusion, [...] dose, [place] 04/12/20 at 1200, Routine
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 approving Restricted medication : BIA [...] First dose Medi mariusz 40 mg on Thu04/11/20 at 0900, Until Discontinu ed, Routine KCL 2020-0 2020- No IV Univers (POTASSIUM 04-11 Infusion, ity of CHLORIDE) 13:52: 11:01 TITRATE, [place] 20 mEq in 06 :54 Starting Medica l lactated Thu [place] ringers 04/11/20 at 1,000 mL 0852, infusion [...] mg 00 :31 First dose Medical on Thu04/11/20 at 0800, Until Discontinu ed, Routine magnesium [...] Medi mariusz (8 %) IV 04/10/20 at [facility] h Piggyback 4 0830, g Routine DAPTOmycin 2019- No 500mg 500 mg, IV Univers (CUBICIN) 04-10 Piggyback, ity of 500 mg in 06:00: 15:57 Q24H ABX, [place] NaCl 0.9% 00 :33 First dose Medi mariusz (NS) on [facility] Branch piggyback 04/10/20 at 0100, Until Discontinu [...] [place] mg 00 :[address] [facility] Medical 04/09/20 at Branch 2200, Until Discontinu ed, Routine micafungin 2019- No 100mg 100 mg, IV Univers (MYCAMINE) 04-10 Piggyback, it y of 100 mg in 02:45: 15:57 Q24H ABX, [place] NaCl 0.9% 00 :33 First dose Medi mariusz (NS) 100 mL on [facility] MINI-BAG 04/09/20 at 2145, Until Discontinu ed, [...] First dose Medi mariusz 0.9% (NS) on [facility] 100 mL 04/09/20 at MINI-BAG 2145, Until Discontinu ed, 100 mL
Reas on for Anti-Infec tive: Documented Infection< br>Documen dain Infection Site: Abdominal< br>Duratio n of Therapy: 7 days acetaminoph 2020-0 2020- No 500mg 500 mg, U nivers en 04-09 Oral, Q6H, ity of (TYLENOL) 23:00: 10:54 First dose [place] tablet 500 00 :[address] [facility] Medical mg 04/09/20 at Branch 1800, Until Discontinu ed, Routine Total 2019-0 2020- No at 85 Univers Parenteral 04-09 mL/hr, ity of Nutrition 22:00: 22:18 2,040 mL, [place] Adult 00 :00 TPNCONTINU Medical OUS, 1 Branch dose, First dose (after last reorder) on Thu04/09/20 at 1700 KCL 2020-0 2020- No IV Univers (POTASSIUM 04-09 Infusion, ity of CHLORIDE) 17:43: 13:52 TITRATE, [place] 20 mEq in 20 :43 Starting Medica l lactated Mon Branch ringers 04/09/20 at 1,000 mL 1243, infusion Until Thu04/11/20 at 0852, 1,000 mL, at 50 mL/hr acetaminoph 2019- 2020- No 1000mg 1,000 mg, [...] 13:00: 14:50 dose on ([facility]) 00 :[address] [facility] Medical solution 04/09/20 at Bran h 0800, Until Discontinu ed, Routine magnesium 2020-0 [...] Univers en ADULT 04-08 IV ity of ([facility]) 17:00: 11:15 Infusion, [place] injection 00 [...] n: Perioperat ector Patient D5W-LR IV 2019- No 1000mL at 60 Univ ers infusion [...] IV ity of IV 20:00: 01:35 Piggyback, [place] Piggyback 00 :07 Q24H ABX, Medic al [...] No 800mg at 100 Un piyush (DIFLUCAN) 04-06- mL/hr, IV ity of IV 21:15: 22:10 [...] 2020- No .03U/mi 0.03 Un piyush (PITRESSIN 04-06-17 n Units/min ity of SYNTHETIC) 21:00: 11:04 [...] s, ONCE, 1 Branch dose, 04/06/20 at 1515, STAT meropenem 2020- No 1000mg 1,000 mg, Univers (MERREM) 04-06 08-18 IV ity of 1,000 mg in 19:30: 01:35 Piggyback, [place] NaCl 0.9% 00 :07 Administer Medi mariusz [...] of therapy: 7 days D5W-LR IV 2019- 2020- No 1000mL at 125 Uni vers infusion 04-06 08-15 mL/hr, IV ity o f 1,000 mL 19:30: 02:50 Infusion, [place] 00 :43 CONTINUOUS Medical , Starting Branch Thu04/06/20 at 1430, Until Thu04/06/20 at 2150, Routine lactated 2019- 2020- No 500mL at 999 Unive rs ringers IV 04-06 08-14 mL/hr, 500 it y of infusion 19:30: 19:30 mL, [place] 500 mL 00 :00 Intravenou Medical s, [...] 2020- No 25ug/h 25-200 U nivers (SUBLIMAZE) 04-06-17 [...] maximum allowed dose, contact prescriber .
dexMEDEtomi 2020- No .2ug/kg 0.2-1.5 Univers dine 200 [...] 04/08/20 at 0923, Routine, Agitation, Sedation lactated 2020- No 1000mL at 150 Univ ers [...] 00 :35 Fri Medical injection 04/06/20 at [facility] 1110, Until Thu04/06/20 at 1129, Routine, Intra-op sodium 2020-0 2020- No ONCE INTRA Univ ers bicarbonate 04-06 PROCEDURE, i ty of 8.4 % (1 16:10: 16:29 [place] mEq/mL) 00 :35 Fri Medical injection 04/06/20 at [facility] 1110, Until Thu04/06/20 at 1129, Routine, [...] 00 :35 Fri Medical infusion 04/06/20 at [facility] 1029, Until Thu04/06/20 at 1129, Routine, Intra-op EPINEPHrine 2020-0 2020- No CONTINUOUS Univers 1 mg in 04-06 PRN, ity of NaCl 0.9% 15:29: 16:29 Starting [place] (NS) 00 :35 Fri Medical infusion 04/06/20 at [facility] h 1029, Until Thu04/06/20 at 1129, Routine, Intra-op piperacilli 2020-0 2020- No CONTINUOUS Univers n-tazobacta 04-06 PRN, ity of m (ZOSYN) 14:57: 16:29 Starting [place] 3.375 g in 00 :35 Fri Medical NaCl 0.9% 04/06/20 at [facility] (NS) 100 mL 0957, infusion Until Discontinu ed, 100 mL, Intra-op piperacilli 2020-0 2020- No CONTINUOUS Univers n-tazobacta 04-06 PRN, ity of m (ZOSYN) 14:57: 16:29 Starting [place] 3.375 g in 00 :35 Fri Medical NaCl 0.9% 04/06/20 at [facility] (NS) 100 mL 0957, infusion Until Discontinu ed, 100 mL, Intra-op EPINEPHrine 2020-0 2020- No ONCE INTRA Univers 1:1,000 (1 04-06 PROCEDURE, it y of mg/mL) 14:54: 16:29 Starting [place] (ADRENALIN) 00 :35 Fri Medical injection 04/06/20 at [facility] 0954, Until Discontinu ed, Routine, Intra-op EPINEPHrine 2020-0 2020- No ONCE INTRA Univers 1:1,000 (1 04-06 PROCEDURE, it y of mg/mL) 14:54: 16:29 Starting [place] (ADRENALIN) 00 :35 Thu Medical injection 04/06/20 at [facility] 0954, Until Discontinu ed, Routine, Intra-op NORepinephr 2020-0 2020- No CONTINUOUS Univers ine 04-06 PRN, ity of (LEVOPHED) 14:39: 16:29 [place] 4 mg in 00 :35 Fri Medical NaCl 0.9% 04/06/20 at Bran ch (NS) 250 mL 0939, infusion Intra-op NORepinephr 2020-0 2020- No CONTINUOUS Univers ine 04-06 PRN, ity of (LEVOPHED) 14:39: 16:29 [place] 4 mg in 00 :35 Fri Medical NaCl 0.9% 04/06/20 at Bran ch (NS) 250 mL 0939, infusion Intra-op rocuronium [...] l Starting Branch 04/06/20 at 0915, Until 8/14/20 at 1129, Routine, Intra-op succinylcho 2020-0 2020- No IV Push, U nivers line 04-06 ONCE INTRA ity of (QUELICIN) 14:15: 16:29 PROCEDURE, [place] injection 00 :35 Starting Medica l Fri Branch 04/06/20 at 0915, Until Thu04/06/20 at 1129, Routine, Intra-op propofol IV 2020-0 2020- No ONCE INTRA Univers infusion 04-06 PROCEDURE, ity of 14:15: 16:29 Starting [place] 00 :[address] [facility] Medical 04/06/20 at Branch 0915, Until Thu04/06/20 at 1129, Routine, Intra-op lidocaine 2020-0 2020- No ONCE INTRA U nivers 1% 04-06 PROCEDURE, ity of (XYLOCAINE) 14:15: 16:29 Starting [place] 100 mg/10 00 :[address] [facility] Medical mL (1 %) 04/06/20 at [facility] h injection 0915, Until Thu04/06/20 at 1129, Routine, Intra-op FENTanyl PF 2020-0 2020- No ONCE INTRA Univers (SUBLIMAZE 04-06 PROCEDURE, it y of (PF)) 14:15: 16:29 Starting [place] injection 00 :[address] [facility] Medical 04/06/20 at Branch 0915, Until Thu04/06/20 [...] [place] injection 00 :35 Starting Medica l [facility] Branch 04/06/20 at 0915, Until Thu04/06/20 at 1129, Routine, Intra-op propofol IV 2020-0 2020- No ONCE INTRA Univers infusion 04-06 PROCEDURE, ity of 14:15: 16:29 Starting [place] 00 :[address] [facility] Medical 04/06/20 at Branch 0915, Until Thu04/06/20 at 1129, Routine, Intra-op lidocaine 2020-0 2020- No ONCE INTRA U nivers 1% 04-06 PROCEDURE, ity of (XYLOCAINE) 14:15: 16:29 [place] 100 mg/10 00 :35 Fri Medical mL (1 %) 04/06/20 at [facility] h injection 0915, Until Thu04/06/20 at 1129, Routine, Intra-op FENTanyl PF 2020-0 2020- No ONCE INTRA Univers (SUBLIMAZE 04-06 PROCEDURE, it y of (PF)) 14:15: 16:29 Starting [place] injection 00 :[address] [facility] Medical 04/06/20 at Branch 0915, Until Thu04/06/20 at 1129, Routine, Intra-op albumin 2020-0 2020- No CONTINUOUS Uni vers (ALBUMINAR- 04-06 PRN, ity of 5) 5 % 14:10: 16:29 Starting [place] injection 00 :[address] [facility] 04/06/20 at Branch 0910, Until Discontinu ed, Intra-op lactated 2020-0 2020- No CONTINUOUS Un piyush ringers IV 04-06 PRN, ity of infusion 14:10: 16:29 [place] 00 :[address] [facility] 04/06/20 at Branch 0910, Until Discontinu ed, Routine, Intra-op albumin 2020-0 2020- No CONTINUOUS Uni vers (ALBUMINAR- 04-06 PRN, ity of 5) 5 % 14:10: 16:29 Starting [place] injection 00 :[address] [facility] 04/06/20 at Branch 0910, Until Discontinu ed, Intra-op lactated 2020-0 2020- No CONTINUOUS Un piyush ringers IV 04-06 PRN, ity of infusion 14:10: 16:29 Starting [place] 00 :[address] [facility] Medical 04/06/20 at Branch 0910, Until Discontinu [...] 1300, Until Thu04/05/20 at 1413, Routine enoxaparin 2019-2019- No 40mg 40 mg, [...] Medi mariusz (8 %) IV 04/04/20 at [facility] h Piggyback 4 0715, g Routine ketorolac 2019- 2020- No 30mg 30 mg, Unive rs (TORADOL) 04-04 Slow IV ity of injection 05:00: 16:23 Push, Q6H, [place] 30 mg 00 :00 3 doses, Medical First dose Branch (after last modificati on) on Thu04/04/20 at 0000, Last dose on Thu04/04/20 at 1200, Routine
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 approving Restricted medication : BIA PEDRO methocarbam 2020- No 1000mg 1,000 mg, Univers ol 04-04 Intravenou ity of (ROBAXIN) 03:00: 11:00 s, Q8H, [place] injection 00 :49 First dose Medi mariusz 1,000 mg on Thu Branch 04/03/20 at 2200, Until Discontinu ed, Routine acetaminoph 2020- No [...] injection 4 26 Starting Medi mariusz mg Thu Branch 04/03/20 at 1627, Until Discontinu ed, Routine, Nausea and Vomiting (N/V) alvimopan 2019- No 12mg 12 mg, Unive rs (ENTEREG) 04-03 Oral, ity of capsule 12 13:45: 14:02 ONCE, 1 [place] mg 00 :00 dose, [facility] 04/03/20 at Branch 0845, Routine
Restricte d use approved by: HELENE MEDELLIN - SURGERY/GE NERAL heparin 2019- No 5000U 5,000 Univers (porcine) 04-03 Units, ity of injection 12:00: 12:02 Subcutaneo [place] 5,000 Units 00 :00 , ONCE, Med ical 1 dose, Branch [facility] 04/03/20 at 0700, Routine gabapentin 2019- No 300mg 300 mg, Un piyush (NEURONTIN) 04-03 Oral, ity of 250 mg/5 mL 12:00: 12:02 ONCE, 1 [place] solution 00 :00 dose, [facility] Medica l 300 mg 04/03/20 at Branch [...] 1915, Until 04/02/20 at 1816, Routine acetaminoph 2020-0 2020- No 650mg 650 mg, U nivers en 04-01 Oral, ity of (TYLENOL) 23:11: 21:31 Q6HPRN, [place] tablet 650 57 :27 Starting Medic al mg [place] 04/01/20 Branch at 1811, Until 04/03/20 at 1631, Routine, Pain (scale 1-3), Pain (scale 4-6) NaCl 0.9% 2019-0 2020- No 1000mL at 999 Uni vers (NS) bolus 04-01 mL/hr, ity of infusion 23:10: 00:18 1,000 mL, [place] as 1,000 mL 00 :00 IV Medical Piggyback, [place] ONCE, 1 dose, [place] 04/01/20 at 1815, STAT lactulose 2019-0 2020- No 15mL 15 mL, Unive rs (CEPHULAC) 04-01 Oral, ity of solution 15 16:15: 16:01 ONCE, 1 [place] mL 00 :00 dose, [facility] 04/01/20 at Branch 1115, Routine Polyethylen 2020-0 2020- No 17g 17 g, Univ ers e Glycol 03-31 Oral, BID ity o f 3350 15:45: 23:13 MEALS, [place] (MIRALAX) 00 :14 First dose Medi mariusz powder 17 g on [facility] Branch 03/31/20 at 1045, Until Discontinu ed, Routine enoxaparin 2020-0 2020- No 40mg 40 mg, Univ ers (LOVENOX) 03-31 Subcutaneo ity of injection 14:00: 10:50 us, DAILY, [place] 40 mg 00 :07 First dose Medical on [facility] 03/31/20 at 0900, Until Discontinu ed, Routine D5W-LR IV 0 2020- No 1000mL at 125 Uni vers infusion 03-31 mL/hr, IV ity o f 1,000 mL 03:00: 23:13 Infusion, [place] 00 :14 CONTINUOUS Medical , Starting Branch Thu03/30/20 at 2200, Until [place] 04/01/20 at 1813, Routine ondansetron 2019-0 2020- No 4mg 4 mg, Slow Univers (ZOFRAN 03-31 IV Push, ity of (PF)) 01:51: 21:31 Q6HPRN, [place] injection 4 28 :27 Starting Medi mariusz mg 03/30/20 Branch at 2051, Until Thu04/03/20 at 1631, Routine, Nausea and Vomiting (N/V) iohexol 2019- [...] ONCE, 1 Medical 50 mcg dose, Fri [place] 03/30/20 at 1815, Routine NaCl 0.9% 2019- 2020- No 1000mL at 999 Uni vers (NS) bolus 03-30 mL/hr, ity of infusion 22:15: 23:43 1,000 mL, [place] 1,000 mL 00 :00 IV Medical Infusion, [place] ONCE, 1 dose, Thu03/30/20 at 1715, JOÃO metoclopram 2019-0 2020- No 5mg 5 mg, Slow Univers tammi HCl 03-28 IV Push, ity of (REGLAN) 01:00: 00:59 Q12H, 2 [place] injection 5 00 :00 doses, Medica l mg First dose Branch on Thu03/27/20 at 2000, Last dose on Thu03/28/20 at 0800, Routine metoclopram 2020-0 Yes [id number] 5mg Take 1 Univers tammi HCl 8-05 tablet by ity of (REGLAN) 5 00:00: mouth [place] mg tablet 00 every 12 Medica l (twelve) Branch hours as needed for Nausea and Vomiting (N/V) (constipat ion). metoclopram 2020-0 Yes [id number] 5mg Take 1 Univers tammi HCl 8-05 tablet by ity of (REGLAN) 5 00:00: mouth [place] mg tablet 00 every 12 Medica l (twelve) Branch hours as needed for Nausea and Vomiting (N/V) (constipat ion). metoclopram 2020-0 Yes [id number] 5mg Take 1 Univers tammi HCl 8-05 tablet by ity of (REGLAN) 5 00:00: mouth [place] mg tablet 00 every 12 Medica l (twelve) Branch hours as needed for Nausea and Vomiting (N/V) (constipat ion). metoclopram 2020-0 Yes [id number] 5mg Take 1 Univers tammi HCl 8-05 tablet by ity of (REGLAN) 5 00:00: mouth [place] mg tablet 00 every 12 Medica l (twelve) Branch hours as needed for Nausea and Vomiting (N/V) (constipat ion). metoclopram 2020-0 2020- No [id number] 5mg Take 1 Univers tammi HCl 8-05 [...] IV Push, ity of (PF)) 02:46: Q6HPRN, [place] injection 4 11 Starting Medi mariusz mg [place] 03/25/20 Branch at 2146, Until Discontinu ed, Routine, Nausea and Vomiting (N/V) acetaminoph 2019-0 Yes 650mg 650 mg, Un piyush en 03-26 Oral, ity of (TYLENOL) 02:46: Q6HPRN, [place] tablet 650 05 Starting Medic al mg [place] 03/25/20 Branch at 2146, Until Discontinu ed, Routine, Pain (scale 1-3) iohexol 2020-0 2020- No 100mL 100 mL, Unive rs (OMNIPAQUE 03-26 Intravenou it y of 350 01:30: 01:30 s, ONCE, 1 [place] BULK-100 00 :00 dose, [place] [facility] mL) 03/25/20 at Branch injection 2029, 100 mL Routine NaCl 0.9% 2020-0 2020- [...] IV Push, ity of (PF)) 04:05: Q6HPRN, [place] injection 4 40 Starting Medi mariusz mg Fri Branch 03/02/20 at 2305, Until Discontinu ed, Routine, Nausea and Vomiting (N/V) acetaminoph 2020-0 Yes 650mg 650 mg, Un piyush en 03-03 Oral, ity of (TYLENOL) 04:05: Q6HPRN, [place] tablet 650 30 Starting Medic al mg Fri Branch 03/02/20 at 2305, Until Discontinu ed, Routine, Pain (scale 1-3) Polyethylen 2020-0 Yes [id number] 17g Take 1 Univers e Glycol 7-07 Packet by ity of 3350 17 00:00: mouth [place] gram powder 00 daily. Medica l Branch Polyethylen 2020-0 Yes [id number] 17g Take 1 Univers e Glycol 7-07 Packet by ity of 3350 17 00:00: mouth [place] gram powder 00 daily. Medica l Branch Polyethylen 2020-0 Yes [id number] 17g Take 1 Univers e Glycol 7-07 Packet by ity of 3350 17 00:00: mouth [place] gram powder 00 daily. Medica l Branch Polyethylen 2020-0 Yes [id number] 17g Take 1 Univers e Glycol 7-07 Packet by ity of 3350 17 00:00: mouth [place] gram powder 00 daily. Medica l Branch Polyethylen 2020-0 2020- No [id number] 17g Take 1 Univers e Glycol 7-07 08-05 Packet by ity o f 3350 17 00:00: 00:00 mouth [place] gram powder 00 :00 daily. Medica l Branch Polyethylen 2020-0 Yes 17g 17 g, Unive rs e Glycol 7-06 Oral, ity of 3350 18:15: DAILY, [place] (MIRALAX) 00 First dose Medi mariusz powder 17 g on Thu [place] 02/27/20 at 1315, Until Discontinu ed, Routine enoxaparin 2020-0 Yes 40mg 40 mg, Unive rs (LOVENOX) 7-06 Subcutaneo ity of injection 14:00: us, DAILY, [place] 40 mg 00 First dose Medical on Thu [place] 02/27/20 at 0900, Until Discontinu ed, Routine polyethylen 2020-0 Yes [id number] 17g Take 17 g Univers e glycol 17 7-06 by mouth ity of gram/dose 00:00: daily. [place] powder [facility] polyethylen 2020-0 Yes [id number] 17g Take 17 g Univers e glycol 17 7-06 by mouth ity of gram/dose 00:00: daily. [place] powder [facility] polyethylen 2020-0 Yes [id number] 17g Take 17 g Univers e glycol 17 7-06 by mouth ity of gram/dose 00:00: daily. [place] powder [facility] polyethylen 2020-0 Yes [id number] 17g Take 17 g Univers e glycol 17 7-06 by mouth ity of gram/dose 00:00: daily. [place] powder Medical [place] polyethylen 2020-0 Yes [id number] 17g Take 17 g Univers e glycol 17 7-06 by mouth ity of gram/dose 00:00: daily. [place] powder [facility] polyethylen 2020-0 Yes [id number] 17g Take 17 g Univers e glycol 17 7-06 by mouth ity of gram/dose 00:00: daily. [place] powder [facility] polyethylen 2020-0 Yes [id number] 17g Take 17 g Univers e glycol 17 7-06 by mouth ity of gram/dose 00:00: daily. [place] powder [facility] polyethylen 2020-0 Yes [id number] 17g Take 17 g Univers e glycol 17 02-26 by mouth ity of gram/dose 00:00: daily. [place] powder 00 [facility] polyethylen 2020-0 2020- No [id number] 17g Take 17 g Univers e glycol 17 02-26- by mouth ity of gram/dose 00:00: 00:00 daily. [place] powder 00 :00 [facility] iohexol 2019-0 2020- No 120mL 120 mL, Unive rs (OMNIPAQUE 02-25- Intravenou it y of 350 18:30: 18:30 s, ONCE, 1 [place] BULK-100 00 :00 dose, [place] [facility] l mL) 02/26/20 at [place] injection 1330, 120 mL Routine lactated 2019-0 2019- No 1000mL at 125 Univ ers ringers IV 02-25 07-06 mL/hr, ity of infusion 16:00: 17:57 1,000 mL, [place] 1,000 mL 00 :14 IV Medical Infusion, Branch CONTINUOUS , Starting 02/26/20 at 1100, Until 02/27/20 at 1257, Routine acetaminoph Yes 650mg 650 mg, Un piyush en 705 Oral, ity of (TYLENOL) 15:01: Q6HPRN, [place] tablet 650 46 Starting Medic al mg 02/26/20 [place] at 1001, Until Discontinu ed, Routine, Pain (scale 1-3), Pain (scale 4-6) pantoprazol 2019-0 2020- No [id number] 40mg Take 1 Univers e 40 mg EC 02-05 tablet by ity of tablet 00:00: 04:59 mouth [place] 00 :00 daily for Medical 90 days. [place] pantoprazol 2019-0 2020- No [id number] 40mg Take 1 Univers e 40 mg EC 6- tablet by ity of tablet 00:00: 04:59 mouth [place] 00 :00 daily for Medical 90 days. [place] pantoprazol 2020-0 2020- No [id number] 40mg Take 1 Univers e 40 mg EC 6-14 tablet by ity of tablet 00:00: 04:59 mouth [place] 00 :00 daily for Medical 90 days. [place] pantoprazol 2020-0 2020- No [id number] 40mg Take 1 Univers e 40 mg EC 6-15 -14 tablet by ity of tablet 00:00: 04:59 mouth [place] 00 :00 daily for Medical 90 days. Branch pantoprazol 2019-0 2019- No [id number] 40mg Take 1 Univers e 40 mg EC 6-15 -14 tablet by ity of tablet 00:00: 04:59 mouth [place] 00 :00 daily for Medical 90 days. Branch pantoprazol 2019-2019- No [id number] 40mg Take 1 Univers e 40 mg EC 6-15 14 tablet by ity of tablet 00:00: 04:59 mouth [place] 00 :00 daily for Medical 90 days. Branch pantoprazol 2019-0 2019- No [id number] 40mg Take 1 Univers e 40 mg EC 6-15 14 tablet by ity of tablet 00:00: 04:59 mouth [place] 00 :00 daily for Medical 90 days. Branch pantoprazol 2019-2019- No [id number] 40mg Take 1 Univers e 40 mg EC 6-15 14 tablet by ity of tablet 00:00: 04:59 mouth [place] 00 :00 daily for Medical 90 days. Branch pantoprazol 2019-0 2019- No [id number] 40mg Take 1 Univers e 40 mg EC 6-15 14 tablet by ity of tablet 00:00: 04:59 mouth [place] 00 :00 daily for Medical 90 days. Branch pantoprazol 2019-0 2019- No [id number] 40mg Take 1 Univers e 40 mg EC 6-15 14 tablet by ity of tablet 00:00: 04:59 mouth [place] 00 :00 daily for Medical 90 days. Branch pantoprazol 2019-0 2019- No [id number] 40mg Take 1 Univers e 40 mg EC 6-15 -14 tablet by ity of tablet 00:00: 04:59 mouth [place] 00 :00 daily for Medical 90 days. Branch pantoprazol 2019-0 2019- No [id number] 40mg Take 1 Univers e 40 mg EC 6-15 -14 tablet by ity of tablet 00:00: 04:59 mouth [place] 00 :00 daily for Medical 90 days. Branch pantoprazol 2019-2019- No [id number] 40mg Take 1 Univers e 40 mg EC 6-15 -08 tablet by ity of tablet 00:00: 00:00 mouth [place] 00 :00 daily for Medical 90 days. Branch docusate 2020-0 2020- No [id number] 100mg Take 1 Univers 100 mg 6-14 09-13 capsule by ity of capsule 00:00: 04:59 mouth 2 [place] 00 :00 (two) Medical times Branch daily for 90 days. docusate 2020-0 2020- No [id number] 100mg Take 1 Univers 100 mg 6-14 09-13 capsule by ity of capsule 00:00: 04:59 mouth 2 [place] 00 :00 (two) Medical times Branch daily for 90 days. docusate 2020-0 2020- No [id number] 100mg Take 1 Univers 100 mg 6-14 09-13 capsule by ity of capsule 00:00: 04:59 mouth 2 [place] 00 :00 (two) Medical times Branch daily for 90 days. docusate 2020-0 2020- No [id number] 100mg Take 1 Univers 100 mg 6-14 09-13 capsule by ity of capsule 00:00: 04:59 mouth 2 [place] 00 :00 (two) Medical times Branch daily for 90 days. docusate 2020-0 2020- No [id number] 100mg Take 1 Univers 100 mg 6-14 09-13 capsule by ity of capsule 00:00: 04:59 mouth 2 [place] 00 :00 (two) Medical times Branch daily for 90 days. docusate 2020-0 2020- No [id number] 100mg Take 1 Univers 100 mg 6-14 09-13 capsule by ity of capsule 00:00: 04:59 mouth 2 [place] 00 :00 (two) Medical times Branch daily for 90 days. docusate 2020-0 2020- No [id number] 100mg Take 1 Univers 100 mg 6-14 09-13 capsule by ity of capsule 00:00: 04:59 mouth 2 [place] 00 :00 (two) Medical times Branch daily for 90 days. docusate 2020-0 2020- No [id number] 100mg Take 1 Univers 100 mg 6-14 09-13 capsule by ity of capsule 00:00: 04:59 mouth 2 [place] 00 :00 (two) Medical times Branch daily for 90 days. docusate 2020-0 2020- No [id number] 100mg Take 1 Univers 100 mg 6-14 09-13 capsule by ity of capsule 00:00: 04:59 mouth 2 [place] 00 :00 (two) Medical times Branch daily for 90 days. docusate 2020-0 2020- No [id number] 100mg Take 1 Univers 100 mg 02-04 capsule by ity of capsule 00:00: 04:59 mouth 2 [place] 00 :00 (two) Medical times Branch daily for 90 days. docusate 2020-0 2020- No [id number] 100mg Take 1 Univers 100 mg 02-04 capsule by ity of capsule 00:00: 04:59 mouth 2 [place] 00 :00 (two) Medical times Branch daily for 90 days. docusate 2020-0 2020- No [id number] 100mg Take 1 Univers 100 mg 02-04 capsule by ity of capsule 00:00: 04:59 mouth 2 [place] 00 :00 (two) Medical times Branch daily for 90 days. docusate 2020-0 2020- No [id number] 100mg Take 1 Univers 100 mg 02-04 capsule by ity of capsule 00:00: 00:00 mouth 2 [place] 00 :00 (two) Medical times Branch daily [...] 00 First dose Medical chewable on Sat [place] tablet 80 01/28/20 at mg 2345, Until Discontinu ed, Routine D5W IV 2019-0 2020- No 1000mL at 50 Univers infusion 01-28 06-14 mL/hr, IV ity o f 1,000 mL 03:45: 18:41 Infusion, [place] as 00 :31 CONTINUOUS Medical , Starting Branch 01/28/20 at 2245, Until 02/05/20 at 1341, Routine bisacodyL 2019-0 2020- No 10mg 10 mg, Unive rs (DULCOLAX) 01-2807 Rectal, ity o f suppository 03:00: 02:52 ONCE, 1 [place] 10 mg 00 :00 dose, [facility] 01/28/20 at Branch 2200, Routine ondansetron 2019-0 Yes 4mg 4 mg, Slow Univers (ZOFRAN 01-28 IV Push, ity of (PF)) 01:32: Q6HPRN, [place] injection 4 44 Starting Medi mariusz mg [...] 07 Oral, ity of (TYLENOL) 01:32: Q6HPRN, [place] tablet 650 14 Starting Medic al mg 01/28/20 Branch at 2031, Until Discontinu ed, Routine, Pain (scale 1-3) morpHINE 2019-0 2020- No 4mg 4 mg, Slow Un piyush injection 4 01-28 06-06 IV Push, ity of mg 00:45: 23:55 ONCE, 1 [place] 00 :00 dose, [facility] 01/28/20 at Branch 1945, STAT iohexol 2019-0 2020- No 100mL 100 mL, Unive rs (OMNIPAQUE 01-28- Intravenou it y of 350 00:00: 00:00 s, ONCE, 1 [place] BULK-100 00 :00 dose, Sat Medica l mL) 01/28/20 at Branch injection 1900, 100 mL Routine ondansetron 2019-0 2020- No 4mg 4 mg, Slow Univers (ZOFRAN 01-27 06-06 IV Push, ity of (PF)) 23:15: 23:35 [...] mg 06:14: Q6HPRN, [place] 00 Starting Medical 01/25/20 Branch at 0114, [...] mg, Slow Un piyush injection 4 01-24 06-03 IV Push, ity of mg 01:45: 00:43 ONCE, 1 [place] 00 :00 dose, [facility] [facility] 2045, Routine ondansetron 2019- No 4mg 4 mg, Slow Univers (ZOFRAN 01-24 06-03 IV Push, ity of (PF)) 00:45: 00:58 Administer [place] injection 4 00 :00 over 15 Medic al mg Minutes, Branch ONCE, 1 dose, [facility] 01/24/20 at 1945, STAT NaCl 0.9% 2019- No 1000mL at 999 Uni vers (NS) bolus 01-24 mL/hr, ity of infusion 00:45: 01:15 1,000 mL, Javi as 1,000 mL 00 :00 IV Medical Infusion, Branch ONCE, 1 dose, [facility] 01/24/20 at 1945, JOÃO mineral oil 2019- No [id number] 30mL Take 30 mL Univers oral liquid 12-11 05-05 by mouth ity of 00:00: 04:59 daily for [place] 00 :00 14 days. [facility] tamsulosin 2019-0 Yes .4mg QD Take 1 [...] n (DAILY 04-14 abuse, in tablet by [employer] [facility]) 00:00: 00:00 remission mouth tablet 00 :00 [...] (DAILY 8 05-21 abuse, in tablet by [employer] [facility]) 00:00: 00:00 remission mouth tablet 00 :00 daily. 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 multivitami 2021- No Alcohol 1{tbl} QD Take 1 Lynne n (DAILY 04-14 05-21 abuse, in tablet by [employer] [facility]) 00:00: 00:00 remission mouth tablet 00 :00 daily. 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 multivitami 2021- No Alcohol 1{tbl} QD Take 1 Lynne n (DAILY 04-14 05-21 abuse, in tablet by [employer] [facility]) 00:00: 00:00 remission mouth tablet 00 :00 daily. 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 multivitami 2021- No Alcohol 1{tbl} QD Take 1 Lynne n (DAILY 8- 05-21 abuse, in tablet by [employer] [facility]) 00:00: 00:00 remission mouth tablet 00 :00 [...] n (DAILY 04-14 abuse, in tablet by [employer]) 00:00: 00:00 remission mouth tablet 00 :00 daily. 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 multivitami 2021- No Alcohol 1{tbl} QD Take 1 Lynne n (DAILY 04-14- abuse, in tablet by [employer] [facility]) 00:00: 00:00 remission mouth tablet 00 :00 daily. thiamine, 2021- No Alcohol 100mg QD Take 1 H arris B-1, 100 mg 04-14- abuse, in tablet by Health tablet 00:00: 00:00 remission mouth 00 :00 daily. multivitami 2021- No Alcohol 1{tbl} QD Take 1 Lynne n (DAILY 04-14 abuse, in tablet by [employer] [facility]) 00:00: 00:00 remission mouth tablet 00 :00 daily. thiamine, 2021- No Alcohol 100mg QD Take 1 H arris B-1, 100 mg 04-14- abuse, in tablet by Health tablet 00:00: 00:00 remission mouth 00 :00 daily. multivitami 2021- No Alcohol 1{tbl} QD Take 1 Lynne n (DAILY 04-14- abuse, in tablet by [employer] [facility]) 00:00: 00:00 remission mouth tablet 00 :00 [...] n (DAILY 04-14 abuse, in tablet by [employer] [facility]) 00:00: 00:00 remission mouth tablet 00 :00 daily. thiamine, 2021- No Alcohol 100mg QD Take 1 H arris B-1, 100 mg 04-14- abuse, in tablet by Health tablet 00:00: 00:00 remission mouth 00 :00 daily. multivitami 2021- No Alcohol 1{tbl} QD Take 1 Lynne n (DAILY 04-14- abuse, in tablet by [employer] [facility]) 00:00: 00:00 remission mouth tablet 00 :00 daily. thiamine, 2021- No Alcohol 100mg QD Take 1 H arris B-1, 100 mg 04-14-21 abuse, in tablet by Health tablet 00:00: 00:00 remission mouth 00 :00 daily. multivitami 2021- No Alcohol 1{tbl} QD Take 1 Lynne n (DAILY 04-14- abuse, in tablet by [employer] [facility]) 00:00: 00:00 remission mouth tablet 00 :00 daily. thiamine, 2021- No Alcohol 100mg QD Take 1 H arris B-1, 100 mg 04-14-21 abuse, in tablet by Health tablet 00:00: 00:00 remission mouth 00 :00 daily. multivitami 2021- No Alcohol 1{tbl} QD Take 1 Lynne n (DAILY 04-14 05-21 abuse, in tablet by [employer]) 00:00: 00:00 remission mouth tablet 00 :00 daily. thiamine, 2021- No Alcohol 100mg QD Take 1 H arris B-1, 100 mg 04-14- abuse, in tablet by Health tablet 00:00: 00:00 remission mouth 00 :00 daily. multivitami 2021- No Alcohol 1{tbl} QD Take 1 Lynne n (DAILY 04-14 abuse, in tablet by [employer] [facility]) 00:00: 00:00 remission mouth tablet 00 :00 daily. thiamine, 2021- No Alcohol 100mg QD Take 1 H arris B-1, 100 mg 04-14- abuse, in tablet by Health tablet 00:00: 00:00 remission mouth 00 :00 daily. multivitami 2021- No Alcohol 1{tbl} QD Take 1 Lynne n (DAILY 04-14 abuse, in tablet by [employer] [facility]) 00:00: 00:00 remission mouth tablet 00 :00 daily. 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 multivitami 2021- No Alcohol 1{tbl} QD Take 1 Lynne n (DAILY 04-14 abuse, in tablet by [employer] [facility]) 00:00: 00:00 remission mouth tablet 00 :00 daily. 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 multivitami 2021- No Alcohol 1{tbl} QD Take 1 Lynne n (DAILY 04-14 abuse, in tablet by [employer] [facility]) 00:00: 00:00 remission mouth tablet 00 :00 daily. 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 multivitami 2021- No Alcohol 1{tbl} QD Take 1 Lynne n (DAILY 04-14 abuse, in tablet by [facility]) 00:00: 00:00 remission mouth tablet 00 :00 [...] Immunizations Ordered Filled Immunization Date Status Comments [facility] Immunization Name Name Influenza Virus 2021-06-04 [...] Universit y of Vaccine Quad IM, 00:00:00 [facility] dical Preserv and ABX Branch Free 6 MO-64 YRS Influenza Virus 2020-08-24 Completed Universit y of Vaccine Quad .5 mL 00:00:00 [place] [facility] IM 6+ MO Branch Influenza Virus 2020-08-24 Completed Universit y of Vaccine Quad .5 mL 00:00:00 [place] [facility] IM 6+ MO Branch Influenza Virus 2020-08-24 Completed Universit y of Vaccine Quad .5 mL 00:00:00 [place] [facility] IM 6+ MO Branch Influenza Virus 2020-08-24 Completed Universit y of Vaccine Quad .5 mL 00:00:00 [place] [facility] IM 6+ MO Branch Influenza Virus 2020-08-24 Completed Universit y of Vaccine Quad .5 mL 00:00:00 [facility] IM 6+ MO Branch Influenza Virus 2020-08-24 Completed Universit y of Vaccine Quad .5 mL 00:00:00 [place] [facility] IM 6+ MO Branch Influenza Virus 2020-08-24 Completed Universit y of Vaccine Quad .5 mL 00:00:00 [place] [facility] IM 6+ MO Branch Influenza Virus 2020-08-24 Completed Universit y of Vaccine Quad .5 mL 00:00:00 [place] [facility] IM 6+ MO Branch Influenza Virus 2020-08-24 Completed Universit y of Vaccine Quad .5 mL 00:00:00 [facility] 6+ MO Branch Influenza Virus 2020-08-24 Completed Universit y of Vaccine Quad .5 mL 00:00:00 [place] [facility] IM 6+ MO Branch Influenza Virus 2020-08-24 Completed Universit y of Vaccine Quad .5 mL 00:00:00 [place] [facility] IM 6+ MO Branch Influenza Virus 2020-08-24 Completed Universit y of Vaccine Quad .5 mL 00:00:00 [place] [facility] IM 6+ MO Branch Influenza Virus 2020-08-24 Completed Universit y of Vaccine Quad .5 mL 00:00:00 [place] [facility] IM 6+ MO Branch Influenza Virus 2020-08-24 Completed Universit y of Vaccine Quad .5 mL 00:00:00 [place] [facility] IM 6+ MO Branch Influenza Virus 2020-08-24 Completed Universit y of Vaccine Quad .5 mL 00:00:00 [place] [facility] IM 6+ MO Branch Influenza Virus [...] y of Vaccine Quad .5 mL 00:00:00 [place] [facility] IM 6+ MO Branch Influenza Virus 2020-08-24 Completed Universit y of Vaccine Quad .5 mL 00:00:00 [place] [facility] IM 6+ MO Branch PPD 2017-04-14 [...] y of Vaccine Quad IM 3+ 00:00:00 [facility] Influenza Virus 2016-05-16 Completed Universit y of Vaccine Quad IM 3+ 00:00:00 [facility] Influenza Virus 2016-05-16 Completed Universit y of Vaccine Quad IM 3+ 00:00:00 [facility] Influenza Virus 2016-05-16 Completed Universit y of Vaccine Quad IM 3+ 00:00:00 [facility] Influenza Virus 2016-05-16 Completed Universit y of Vaccine Quad IM 3+ 00:00:00 [facility] Influenza Virus 2016-05-16 Completed Universit y of Vaccine Quad IM 3+ 00:00:00 [facility] Influenza Virus 2016-05-16 Completed Universit y of Vaccine Quad IM 3+ 00:00:00 [facility] Influenza Virus 2016-05-16 Completed Universit y of Vaccine Quad IM 3+ 00:00:00 [facility] Influenza Virus 2016-05-16 Completed Universit y of Vaccine Quad IM 3+ 00:00:00 [facility] Influenza Virus 2016-05-16 Completed Universit y of Vaccine Quad IM 3+ 00:00:00 [facility] Influenza Virus 2016-05-16 Completed Universit y of Vaccine Quad IM 3+ 00:00:00 [facility] Influenza Virus 2016-05-16 Completed Universit y of Vaccine Quad IM 3+ 00:00:00 [facility] Influenza Virus 2016-05-16 Completed Universit y of Vaccine Quad IM 3+ 00:00:00 [facility] Influenza Virus 2016-05-16 Completed Universit y of Vaccine Quad IM 3+ 00:00:00 [facility] Influenza Virus 2016-05-16 Completed Universit y of Vaccine Quad IM 3+ 00:00:00 [facility] Influenza Virus 2016-05-16 Completed Universit y of Vaccine Quad IM 3+ 00:00:00 [facility] Influenza Virus 2016-05-16 Completed Universit y of Vaccine Quad IM 3+ 00:00:00 [facility] Influenza Virus 2016-05-16 Completed Universit y of Vaccine Quad IM 3+ 00:00:00 [facility] Influenza Virus 2016-05-16 Completed Universit y of Vaccine Quad IM 3+ 00:00:00 [facility] Influenza Virus 2016-05-16 Completed Universit y of Vaccine Quad IM 3+ 00:00:00 [facility] Influenza Virus 2016-05-16 Completed Universit y of Vaccine Quad IM 3+ 00:00:00 [facility] Influenza Virus 2016-05-16 Completed Universit y of Vaccine Quad IM 3+ 00:00:00 [facility] Influenza Virus 2016-05-16 Completed Universit y of Vaccine Quad IM 3+ 00:00:00 [facility] Influenza Virus 2016-05-16 Completed Universit y of Vaccine Quad IM 3+ 00:00:00 [facility] Influenza Virus 2016-05-16 Completed Universit y of Vaccine Quad IM 3+ 00:00:00 [facility] Influenza Virus 2016-05-16 Completed Universit y of Vaccine Quad IM 3+ 00:00:00 [facility] Influenza Virus 2016-05-16 Completed Universit y of Vaccine Quad IM 3+ 00:00:00 [facility] Influenza Virus 2016-05-16 Completed Universit y of Vaccine Quad IM 3+ 00:00:00 [facility] Influenza Virus 2016-05-16 Completed Universit y of Vaccine Quad IM 3+ 00:00:00 [facility] Influenza Virus 2016-05-16 Completed Universit y of Vaccine Quad IM 3+ 00:00:00 [facility] Influenza Virus 2016-05-16 Completed Universit y of Vaccine Quad IM 3+ 00:00:00 [facility] Influenza Virus 2016-05-16 Completed Universit y of Vaccine Quad IM 3+ 00:00:00 [facility] Influenza Virus 2016-05-16 Completed Universit y of Vaccine Quad IM 3+ 00:00:00 [facility] Influenza Virus 2016-05-16 Completed Universit y of Vaccine Quad IM 3+ 00:00:00 [facility] Influenza Virus 2016-05-16 Completed Universit y of Vaccine Quad IM 3+ 00:00:00 [facility] Influenza Virus 2016-05-16 Completed Universit y of Vaccine Quad IM 3+ 00:00:00 [facility] Influenza Virus 2016-05-16 Completed Universit y of Vaccine Quad IM 3+ 00:00:00 [facility] Influenza Virus 2016-05-16 Completed Universit y of Vaccine Quad IM 3+ 00:00:00 [facility] Influenza Virus 2016-05-16 Completed Universit y of Vaccine Quad IM 3+ 00:00:00 [facility] Influenza Virus 2016-05-16 Completed Universit y of Vaccine Quad IM 3+ 00:00:00 [facility] Influenza Virus 2016-05-16 Completed Universit y of Vaccine Quad IM 3+ 00:00:00 [facility] Influenza Virus 2016-05-16 Completed Universit y of Vaccine Quad IM 3+ 00:00:00 [facility] Influenza Virus 2016-05-16 Completed Universit y of Vaccine Quad IM 3+ 00:00:00 [facility] Influenza Virus 2016-05-16 Completed Universit y of Vaccine Quad IM 3+ 00:00:00 [facility] Influenza Virus 2016-05-16 Completed Universit y of Vaccine Quad IM 3+ 00:00:00 [facility] Influenza Virus 2016-05-16 Completed Universit y of Vaccine Quad IM 3+ 00:00:00 [facility] Influenza Virus 2016-05-16 Completed Universit y of Vaccine Quad IM 3+ 00:00:00 [facility] Influenza Virus 2016-05-16 Completed Universit y of Vaccine Quad IM 3+ 00:00:00 [facility] Influenza Virus 2016-05-16 Completed Universit y of Vaccine Quad IM 3+ 00:00:00 [facility] Influenza Virus 2016-05-16 Completed Universit y of Vaccine Quad IM 3+ 00:00:00 [facility] Influenza Virus 2016-05-16 Completed Universit y of Vaccine Quad IM 3+ 00:00:00 [facility] Influenza Virus 2016-05-16 Completed Universit y of Vaccine Quad IM 3+ 00:00:00 [facility] Influenza Virus 2016-05-16 Completed Universit y of Vaccine Quad IM 3+ 00:00:00 [facility] Influenza Virus 2016-05-16 Completed Universit y of Vaccine Quad IM 3+ 00:00:00 [facility] Influenza Virus 2016-05-16 Completed Universit y of Vaccine Quad IM 3+ 00:00:00 [facility] Influenza Virus 2016-05-16 Completed Universit y of Vaccine Quad IM 3+ 00:00:00 [facility] Influenza Virus 2016-05-16 Completed Universit y of Vaccine Quad IM 3+ 00:00:00 [facility] Influenza Virus 2016-05-16 Completed Universit y of Vaccine Quad IM 3+ 00:00:00 [facility] Influenza Virus 2016-05-16 Completed Universit y of Vaccine Quad IM 3+ 00:00:00 [facility] Influenza Virus 2016-05-16 Completed Universit y of Vaccine Quad IM 3+ 00:00:00 [facility] Influenza Virus 2016-05-16 Completed Universit y of Vaccine Quad IM 3+ 00:00:00 [facility] Influenza Virus 2016-05-16 Completed Universit y of Vaccine Quad IM 3+ 00:00:00 [facility] Influenza Virus 2016-05-16 Completed Universit y of Vaccine Quad IM 3+ 00:00:00 [facility] Influenza Virus 2016-05-16 Completed Universit y of Vaccine Quad IM 3+ 00:00:00 [facility] Influenza Virus 2016-05-16 Completed Universit y of Vaccine Quad IM 3+ 00:00:00 [facility] Influenza Virus 2016-05-16 Completed Universit y of Vaccine Quad IM 3+ 00:00:00 [facility] Influenza Virus 2016-05-16 Completed Universit y of Vaccine Quad IM 3+ 00:00:00 [facility] Influenza Virus 2016-05-16 Completed Universit y of Vaccine Quad IM 3+ 00:00:00 [facility] Influenza Virus 2016-05-16 Completed Universit y of Vaccine Quad IM 3+ 00:00:00 [facility] Influenza Virus 2016-05-16 Completed Universit y of Vaccine Quad IM 3+ 00:00:00 [facility] Influenza Virus 2016-05-16 Completed Universit y of Vaccine Quad IM 3+ 00:00:00 [facility] Influenza Virus 2016-05-16 Completed Universit y of Vaccine Quad IM 3+ 00:00:00 [facility] Influenza Virus 2016-05-16 Completed Universit y of Vaccine Quad IM 3+ 00:00:00 [facility] Influenza Virus 2016-05-16 Completed Universit y of Vaccine Quad IM 3+ 00:00:00 [facility] Influenza Virus 2016-05-16 Completed Universit y of Vaccine Quad IM 3+ 00:00:00 [facility] Influenza Virus 2016-05-16 Completed Universit y of Vaccine Quad IM 3+ 00:00:00 [facility] Influenza Virus 2016-05-16 Completed Universit y of Vaccine Quad IM 3+ 00:00:00 [facility] Influenza Virus 2016-05-16 Completed Universit y of Vaccine Quad IM 3+ 00:00:00 [facility] Influenza Virus 2016-05-16 Completed Universit y of Vaccine Quad IM 3+ 00:00:00 [facility] Influenza Virus 2016-05-16 Completed Universit y of Vaccine Quad IM 3+ 00:00:00 [facility] Influenza Virus 2016-05-16 Completed Universit y of Vaccine Quad IM 3+ 00:00:00 [facility] Influenza Virus 2016-05-16 Completed Universit y of Vaccine Quad IM 3+ 00:00:00 [facility] Influenza Virus 2016-05-16 Completed Universit y of Vaccine Quad IM 3+ 00:00:00 [facility] Influenza Virus 2016-05-16 Completed Universit y of Vaccine Quad IM 3+ 00:00:00 [facility] Influenza Virus 2016-05-16 Completed Universit y of Vaccine Quad IM 3+ 00:00:00 [facility] Influenza Virus 2016-05-16 Completed Universit y of Vaccine Quad IM 3+ 00:00:00 [facility] Influenza Virus 2016-05-16 Completed Universit y of Vaccine Quad IM 3+ 00:00:00 [facility] Influenza Virus 2016-05-16 Completed Universit y of Vaccine Quad IM 3+ 00:00:00 [facility] Influenza Virus 2016-05-16 Completed Universit y of Vaccine Quad IM 3+ 00:00:00 [facility] Influenza Virus 2016-05-16 Completed Universit y of Vaccine Quad IM 3+ 00:00:00 [facility] Influenza Virus 2016-05-16 Completed Universit y of Vaccine Quad IM 3+ 00:00:00 [facility] Influenza Virus 2016-05-16 Completed Universit y of Vaccine Quad IM 3+ 00:00:00 [facility] Influenza Virus 2016-05-16 Completed Universit y of Vaccine Quad IM 3+ 00:00:00 [facility] Influenza Virus 2016-05-16 Completed Universit y of Vaccine Quad IM 3+ 00:00:00 [facility] Influenza Virus 2016-05-16 Completed Universit y of Vaccine Quad IM 3+ 00:00:00 [facility] Influenza Virus 2016-05-16 Completed Universit y of Vaccine Quad IM 3+ 00:00:00 [facility] Influenza Virus 2016-05-16 Completed Universit y of Vaccine Quad IM 3+ 00:00:00 [facility] Vital Signs Vital Name Observation Time Observation Value Comments Source Systolic blood 2023-03-20 110 mm[Hg] University of pressure 22:49:37 [facility] Diastolic blood 2023-03-20 64 mm[Hg] University o f pressure 22:49:37 [facility] Heart rate 2023-03-20 75 /min University of 22:49:37 [facility] Body temperature 2023-03-20 36.94 Tasia University of 22:49:37 [facility] Respiratory rate 2023-03-20 17 /min University of 22:49:37 [place] [facility] Oxygen saturation 2023-03-20 99 /min University of in Arterial blood 22:49:37 [place] [facility] by Pulse oximetry Branch Body height 2023-03-20 185.4 cm University of 19:26:00 [place] [facility] Body weight 2023-03-20 65.772 kg University of 19:26:00 [facility] BMI 2023-03-20 19.13 kg/m2 University of 19:26:00 [facility] Systolic blood 2023-01-28 99 mm[Hg] University of pressure 16:47:00 [place] [facility] Diastolic blood 2023-01-28 63 mm[Hg] University o f pressure 16:47:00 [facility] Heart rate 2023-01-28 79 /min University of 16:47:00 [facility] Body temperature 2023-01-28 36.44 Tasia University of 16:47:00 [facility] Respiratory rate 2023-01-28 12 /min University of 16:47:00 [facility] Oxygen saturation 2023-01-28 100 /min University of in Arterial blood 16:47:00 [place] [facility] by Pulse oximetry Branch Body height 2023-01-27 185.4 cm University of 21:40:00 [facility] Body weight 2023-01-27 72.666 kg University of 21:40:00 [place] [facility] BMI 2023-01-27 21.14 kg/m2 University of 21:40:00 [facility] Systolic blood 2023-01-27 120 mm[Hg] University of pressure 04:00:00 [place] [facility] Diastolic blood 2023-01-27 84 mm[Hg] University o f pressure 04:00:00 [place] [facility] Heart rate 2023-01-27 84 /min University of 04:00:00 [place] [facility] Respiratory rate 2023-01-27 20 /min University of 04:00:00 [facility] Oxygen saturation 2023-01-27 99 /min University of in Arterial blood 04:00:00 [place] [facility] by Pulse oximetry Branch Body temperature 2023-01-26 36.94 Tasia University of 23:28:00 [facility] Body height 2023-01-26 185.4 cm University of :28: [facility] Body weight 2023-01-26 68.04 kg University of :: [facility] BMI 2023-01-26 19.79 kg/m2 University of 23:28: [facility] Systolic blood 2022-12-15 128 mm[Hg] University of pressure 00:23:00 [facility] Diastolic blood 2022-12-15 72 mm[Hg] University o f pressure 00:23:00 [facility] Heart rate 2022-12-15 90 /min University of ::00 [facility] Body temperature 2022-12-15 36.94 Tasia University of ::00 [facility] Respiratory rate 2022-12-15 18 /min University of 00::00 [facility] Oxygen saturation 2022-12-15 100 /min University of in Arterial blood 00:23:[address] [facility] by Pulse oximetry [place] Body weight 2022-12-14 68.04 kg University of :43:00 [facility] BMI 2022-12-14 19.79 kg/m2 University of 21:43:00 [facility] Systolic blood 2022-12-09 90 mm[Hg] University of pressure 16:10:00 [facility] Diastolic blood 2022-12-09 51 mm[Hg] University o f pressure 16:10:00 [facility] Heart rate 2022-12-09 81 /min University of 16:10:00 [facility] Body temperature 2022-12-09 37 Tasia University of 16:10:00 [facility] Respiratory rate 2022-12-09 17 /min University of 16:10:00 [facility] Oxygen saturation 2022-12-09 97 /min University of in Arterial blood 16:10:[address] [facility] by Pulse oximetry [place] Body height 2022-11-27 185.4 cm University of 21:01:00 [facility] Body weight 2022-11-27 68.04 kg University of 21:01:00 [facility] BMI 2022-11-27 19.79 kg/m2 University of 21:01:00 [facility] Systolic blood 2022-12-04 90 mm[Hg] University of pressure 16:01:00 [facility] Diastolic blood 2022-12-04 57 mm[Hg] University o f pressure 16:01:00 [facility] Heart rate 2022-12-04 72 /min University of 16:01:00 [facility] Respiratory rate 2022-12-04 18 /min University of 16:01:00 [facility] Oxygen saturation 2022-12-04 96 /min University of in Arterial blood 16:01:00 [place] [facility] by Pulse oximetry Branch Body temperature 2022-12-04 36.67 Tasia University of 15:58:00 [facility] Body height 2022-11-27 185.4 cm University of 21:01:00 [facility] Body weight 2022-11-27 68.04 kg University of 21:01:00 [facility] BMI 2022-11-27 19.79 kg/m2 [facility] 21:01:00 [facility] Systolic blood 2022-11-22 97 mm[Hg] [facility] pressure 16:45:00 [facility] Diastolic blood 2022-11-22 64 mm[Hg] [facility] o f pressure 16:45:00 [facility] Heart rate 2022-11-22 75 /min [facility] of 16:45:00 [facility] Body temperature 2022-11-22 35.56 Tasia [facility] 16:45:00 [facility] Respiratory rate 2022-11-22 18 /min [facility] of 16:45:00 [facility] Oxygen saturation 2022-11-22 100 /min University of in Arterial blood 16:45:00 [facility] mariusz by Pulse oximetry Branch Body weight 2022-11-20 70.3 kg University of 19:00:00 [facility] BMI 2022-11-20 20.45 kg/m2 [facility] of 19:00:00 [facility] Body height 2022-11-20 185.4 cm [facility] of 01:59:00 [facility] Systolic blood 2022-11-06 91 mm[Hg] [facility] pressure 16:52:00 [facility] Diastolic blood 2022-11-06 55 mm[Hg] [facility] o f pressure 16:52:00 [facility] Heart rate 2022-11-06 70 /min [facility] of 16:52:00 [facility] Body temperature 2022-11-06 36.78 Tasia [facility] 16:52:00 [facility] Respiratory rate 2022-11-06 20 /min [facility] 16:52:00 [facility] Oxygen saturation 2022-11-06 99 /min [facility] of in Arterial blood 16:52:[address] [facility] by Pulse oximetry Branch Body height 2022-11-02 185.4 cm [facility] of 20:04:00 [facility] Body weight 2022-11-02 70.489 kg University of 20:04:00 [facility] BMI 2022-11-02 20.50 kg/m2 [facility] of 20:04:00 [facility] Systolic blood 2022-10-20 102 mm[Hg] [facility] pressure 04:30:00 [facility] Diastolic blood 2022-10-20 73 mm[Hg] [facility] o f pressure 04:30:00 [facility] Heart rate 2022-10-20 83 /min [facility] of 04:30:00 [facility] Respiratory rate 2022-10-20 19 /min [facility] of 04:30:00 [facility] Oxygen saturation 2022-10-20 100 /min University of in Arterial blood 04:30:[address] [facility] by Pulse oximetry [place] Body temperature 2022-10-20 36.61 Tasia [facility] 01:14:00 [facility] Body weight 2022-10-20 68.04 kg University of 01:14:00 [facility] BMI 2022-10-20 19.79 kg/m2 [facility] of 01:14:00 [facility] Systolic blood 2022-05-21 103 mm[Hg] [facility] pressure 17:00:00 [facility] Diastolic blood 2022-05-21 56 mm[Hg] [facility] o f pressure 17:00:00 [facility] Heart rate 2022-05-21 71 /min [facility] of 17:00:00 [facility] Respiratory rate 2022-05-21 11 /min [facility] of 17:00:00 [facility] Oxygen saturation 2022-05-21 100 /min [facility] of in Arterial blood 17:00:[address] [facility] by Pulse oximetry Branch Body temperature 2022-05-21 36.39 Tasia [facility] 12:10:00 [facility] Body weight 2022-05-21 69.491 kg University of 09:00:00 [facility] BMI 2022-05-21 20.21 kg/m2 [facility] of 09:00:00 [facility] Body height 2022-05-20 185.4 cm [facility] of 06:07:00 [facility] Systolic blood 2022-04-10 115 mm[Hg] [facility] pressure 05:05:13 [facility] Diastolic blood 2022-04-10 93 mm[Hg] University o f pressure 05:05:13 [facility] Heart rate 2022-04-10 87 /min [facility] of 05:05:13 [facility] Respiratory rate 2022-04-10 15 /min [facility] of 05:05:13 [facility] Oxygen saturation 2022-04-10 100 /min University of in Arterial blood 05:05:[address] [facility] by Pulse oximetry Branch Body temperature 2022-04-10 36.61 Tasia [facility] 01:35:00 [facility] Body height 2022-04-10 185.4 cm University 01:35:00 [facility] Body weight 2022-04-10 68.04 kg University of 01:35:00 [facility] BMI 2022-04-10 19.79 kg/m2 [facility] of 01:35:00 [facility] Systolic blood 2022-04-08 86 mm[Hg] [facility] pressure 13:00:00 [facility] Diastolic blood 2022-04-08 75 mm[Hg] University o f pressure 13:00:00 [facility] Heart rate 2022-04-08 61 /min [facility] of 13:00:00 [facility] Body temperature 2022-04-08 35.67 Tasia University 13:00:00 [facility] Respiratory rate 2022-04-08 17 /min [facility] 13:00:00 [facility] Oxygen saturation 2022-04-08 95 /min [facility] of in Arterial blood 13:00:[address] [facility] by Pulse oximetry Branch Body weight 2022-04-06 72.984 kg [facility] of 08:20:00 [facility] BMI 2022-04-06 21.23 kg/m2 [facility] of 08:20:00 [facility] Body height 2022-04-02 185.4 cm University 16:37:00 [facility] Systolic blood 2022-03-13 94 mm[Hg] [facility] pressure 15:33:00 Diastolic blood 2022-03-13 62 mm[Hg] [facility] pressure 15:33:00 Heart rate 2022-03-13 109 /min [facility] 15:33:00 Body temperature 2022-03-13 36.67 Tasia [facility] 15:33:00 Respiratory rate 2022-03-13 20 /min [facility] 15:33:00 Body height 2022-03-13 185.4 cm [facility] 15:33:00 Body weight 2022-03-13 66.679 kg [facility] 15:33:00 BMI 2022-03-13 19.39 kg/m2 [facility] 15:33:00 Oxygen saturation 2022-03-13 100 /min [facility] Arterial blood 15:33:00 by Pulse oximetry HEIGHT 2022-03-06 185.4 cm 12:05:00 WEIGHT 2022-03-06 65.772 kg 12:05:00 HEIGHT 2022-03-06 185.4 cm 12:05:00 WEIGHT 2022-03-06 65.772 kg 12:05:00 Systolic blood 2022-02-20 118 mm[Hg] [facility] pressure 08:01:00 Diastolic blood 2022-02-20 82 mm[Hg] [facility] pressure 08:01:00 Heart rate 2022-02-20 67 /min [facility] 08:01:00 Body temperature 2022-02-20 36.44 Tasia [facility] 08:01:00 Respiratory rate 2022-02-20 17 /min [facility] 08:01:00 Oxygen saturation 2022-02-20 99 /min [facility] Arterial blood 08:01:00 by Pulse oximetry Body height 2022-02-19 185.4 cm [facility] 16:00:00 Body weight 2022-02-19 69.945 kg [facility] 16:00:00 BMI 2022-02-19 20.34 kg/m2 [facility] 16:00:00 Systolic blood 2022-02-20 118 mm[Hg] [facility] pressure 08:01:00 Diastolic blood 2022-02-20 82 mm[Hg] [facility] pressure 08:01:00 Heart rate 2022-02-20 67 /min [facility] 08:01:00 Body temperature 2022-02-20 36.44 Tasia [facility] 08:01:00 Respiratory rate 2022-02-20 17 /min [facility] 08:01:00 Oxygen saturation 2022-02-20 99 /min [facility] Arterial blood 08:01:00 by Pulse oximetry Body height 2022-02-19 185.4 cm [facility] 16:00:00 Body weight 2022-02-19 69.945 kg [facility] 16:00:00 BMI 2022-02-19 20.34 kg/m2 [facility] 16:00:00 Systolic blood 2022-02-11 98 mm[Hg] [facility] pressure 11:30:00 Diastolic blood 2022-02-11 57 mm[Hg] [facility] pressure 11:30:00 Heart rate 2022-02-11 62 /min [facility] 11:30:00 Body temperature 2022-02-11 37.17 Tasia [facility] 11:30:00 Respiratory rate 2022-02-11 11 /min [facility] 11:30:00 Oxygen saturation 2022-02-11 98 /min [facility] Arterial blood 11:30:00 by Pulse oximetry Body height 2022-02-08 185.4 cm [facility] 01:10:00 Body weight 2022-02-08 70.761 kg [facility] 01:10:00 BMI 2022-02-08 20.58 kg/m2 [facility] 01:10:00 Systolic blood 2022-02-11 98 mm[Hg] [facility] pressure 11:30:00 Diastolic blood 2022-02-11 57 mm[Hg] [facility] pressure 11:30:00 Heart rate 2022-02-11 62 /min [facility] 11:30:00 Body temperature 2022-02-11 37.17 Tasia [facility] 11:30:00 Respiratory rate 2022-02-11 11 /min [facility] 11:30:00 Oxygen saturation 2022-02-11 98 /min [facility] Arterial blood 11:30:00 by Pulse oximetry Body height 2022-02-08 185.4 cm [facility] 01:10:00 Body weight 2022-02-08 70.761 kg [facility] 01:10:00 BMI 2022-02-08 20.58 kg/m2 [facility] 01:10:00 Systolic blood 2021-09-14 106 mm[Hg] [facility] pressure 03:17:00 [facility] Diastolic blood 2021-09-14 55 mm[Hg] [facility] o f pressure 03:17:00 [facility] Heart rate 2021-09-14 86 /min [facility] 03:17:00 [facility] Body temperature 2021-09-14 36.89 Tasia [facility] 03:17:00 [facility] Respiratory rate 2021-09-14 18 /min [facility] of 03:17:00 [facility] Oxygen saturation 2021-09-14 98 /min [facility] in Arterial blood 03:17:00 [facility] mariusz by Pulse oximetry [facility] Systolic blood 2021-09-12 90 mm[Hg] [facility] pressure 22:20:00 [facility] Diastolic blood 2021-09-12 66 mm[Hg] [facility] o f pressure 22:20:00 [facility] Heart rate 2021-09-12 97 /min [facility] 22:20:00 [facility] Body temperature 2021-09-12 36.61 Tasia [facility] 22:20:00 [facility] Respiratory rate 2021-09-12 16 /min [facility] 22:20:00 [facility] Oxygen saturation 2021-09-12 98 /min [facility] in Arterial blood 22:20:00 [facility] mariusz by Pulse oximetry Branch Body weight 2021-09-12 68.04 kg [facility] 20:25:00 [facility] BMI 2021-09-12 19.79 kg/m2 [facility] 20:25:00 [facility] Systolic blood 2021-09-12 103 mm[Hg] [facility] pressure 13:29:00 [facility] Diastolic blood 2021-09-12 67 mm[Hg] [facility] o f pressure 13:29:00 [facility] Heart rate 2021-09-12 91 /min [facility] 13:29:00 [facility] Body temperature 2021-09-12 36.72 Tasia [facility] 13:29:00 [facility] Respiratory rate 2021-09-12 33 /min [facility] 13:29:00 [facility] Oxygen saturation 2021-09-12 98 /min [facility] in Arterial blood 13:29:00 [facility] mariusz by Pulse oximetry [facility] Body weight 2021-09-12 68.04 kg [facility] 12:17:00 [facility] BMI 2021-09-12 19.79 kg/m2 [facility] 12:17:00 [facility] Systolic blood 2021-09-09 100 mm[Hg] [facility] pressure 04:59:00 [facility] Diastolic blood 2021-09-09 60 mm[Hg] [facility] o f pressure 04:59:00 [facility] Heart rate 2021-09-09 85 /min [facility] of 04:59:00 [facility] Body temperature 2021-09-09 36.5 Tasia [facility] 04:59:00 [facility] Respiratory rate 2021-09-09 16 /min [facility] 04:59:00 [facility] Body height 2021-09-09 185.4 cm [facility] 04:59:00 [facility] Body weight 2021-09-09 68.04 kg [facility] of 04:59:00 [facility] BMI 2021-09-09 19.79 kg/m2 [facility] 04:59:00 [facility] Oxygen saturation 2021-09-09 98 /min [place] of in Arterial blood 04:59:00 [facility] mariusz by Pulse oximetry Branch Systolic blood 2021-09-08 129 mm[Hg] [facility] pressure 05:42:00 [facility] Diastolic blood 2021-09-08 69 mm[Hg] [facility] o f pressure 05:42:00 [facility] Heart rate 2021-09-08 85 /min [facility] 05:42:00 [facility] Respiratory rate 2021-09-08 17 /min [facility] of 05:42:00 [facility] Oxygen saturation 2021-09-08 98 /min [place] of in Arterial blood 05:42:[address] [facility] by Pulse oximetry Branch Body temperature 2021-09-08 37.44 Tasia [facility] 01:22:00 [facility] Body weight 2021-09-08 68 kg [facility] of 01:22:00 [facility] BMI 2021-09-08 19.78 kg/m2 [facility] 01:22:00 [facility] Systolic blood 2021-09-06 123 mm[Hg] [facility] pressure 21:33:00 [facility] Diastolic blood 2021-09-06 65 mm[Hg] [facility] o f pressure 21:33:00 [facility] Heart rate 2021-09-06 91 /min University of :33:00 [facility] Body temperature 2021-09-06 36.39 Tasia [facility] of :33:00 [facility] Respiratory rate 2021-09-06 18 /min [facility] 21:33:00 [facility] Body weight 2021-09-06 68.04 kg University of :33:00 [facility] BMI 2021-09-06 19.79 kg/m2 [facility] 21:33:00 [facility] Oxygen saturation 2021-09-06 100 /min [facility] of in Arterial blood 21:33:00 [facility] mariusz by Pulse oximetry Branch Systolic blood 2021-09-05 99 mm[Hg] [facility] pressure 17:16:00 [facility] Diastolic blood 2021-09-05 62 mm[Hg] [facility] pressure 17:16:00 [facility] Heart rate 2021-09-05 78 /min [facility] 17:16:00 [facility] Body temperature 2021-09-05 36.39 Tasia [facility] 17:16:00 [facility] Respiratory rate 2021-09-05 17 /min [facility] 17:16:00 [facility] Oxygen saturation 2021-09-05 95 /min [facility] in Arterial blood 17:16:[address] [facility] by Pulse oximetry Branch Body height 2021-08-31 185.4 cm [facility] of 07:29:00 [facility] Body weight 2021-08-31 68.04 kg [facility] of 07:29:00 [facility] BMI 2021-08-31 19.79 kg/m2 [facility] 07:29:00 [facility] Systolic blood 2021-09-03 111 mm[Hg] [facility] pressure 15:59:00 [facility] Diastolic blood 2021-09-03 65 mm[Hg] [facility] o f pressure 15:59:00 [facility] Heart rate 2021-09-03 75 /min [facility] of 15:59:00 [facility] Body temperature 2021-09-03 35.72 Tasia [facility] 15:59:00 [facility] Respiratory rate 2021-09-03 18 /min [facility] of 15:59:00 [facility] Oxygen saturation 2021-09-03 100 /min [facility] in Arterial blood 15:59:[address] [facility] by Pulse oximetry Branch Body height 2021-08-31 185.4 cm University of :29:00 [facility] Body weight 2021-08-31 68.04 kg University of :29:00 [facility] BMI 2021-08-31 19.79 kg/m2 [facility] of 07:29:00 [facility] Systolic blood 2021-08-29 111 mm[Hg] [facility] pressure 23:12:00 [facility] Diastolic blood 2021-08-29 73 mm[Hg] University o f pressure 23:12:00 [facility] Heart rate 2021-08-29 95 /min [facility] of 23:12:00 [facility] Body temperature 2021-08-29 37 Tasia [facility] 23:12:00 [facility] Respiratory rate 2021-08-29 18 /min [facility] of 23:12:00 [facility] Body weight 2021-08-29 68.04 kg University of 23:12:00 [facility] BMI 2021-08-29 19.79 kg/m2 University of 23:12:00 [facility] Oxygen saturation 2021-08-29 99 /min [facility] of in Arterial blood 23:12:00 [facility] mariusz by Pulse oximetry Branch Systolic blood 2021-08-05 92 mm[Hg] [facility] pressure 10:56:00 [facility] Diastolic blood 2021-08-05 75 mm[Hg] University o f pressure 10:56:00 [facility] Heart rate 2021-08-05 67 /min University 10:56:00 [facility] Body temperature 2021-08-05 36.22 Tasia University 10:56:00 [facility] Oxygen saturation 2021-08-05 93 /min [facility] of in Arterial blood 10:56:[address] [facility] by Pulse oximetry Branch Respiratory rate 2021-08-05 16 /min University 06:24:00 [facility] Body height 2021-07-30 185.4 cm University of 09:49:00 [facility] Body weight 2021-07-30 65.772 kg University of 09:49:00 [facility] BMI 2021-07-30 19.13 kg/m2 University of 09:49:00 [facility] Systolic blood 2021-07-26 107 mm[Hg] [facility] pressure 17:32:00 [facility] Diastolic blood 2021-07-26 69 mm[Hg] University o f pressure 17:32:00 [facility] Heart rate 2021-07-26 70 /min [facility] of 17:32:00 [facility] Body temperature 2021-07-26 36.39 Tasia [facility] of 17:32:00 [facility] Respiratory rate 2021-07-26 16 /min [facility] of 17:32:00 [facility] Oxygen saturation 2021-07-26 96 /min [facility] in Arterial blood 17:32:00 [place] [facility] by Pulse oximetry [facility] Body height 2021-07-23 185.4 cm University of 08:40:00 [facility] Body weight 2021-07-23 84.5 kg University of 08:40:00 [facility] BMI 2021-07-23 24.58 kg/m2 University of 08:40:00 [facility] Systolic blood 2021-06-04 95 mm[Hg] [facility] pressure 16:20:00 [facility] Diastolic blood 2021-06-04 60 mm[Hg] University o f pressure 16:20:00 [facility] Heart rate 2021-06-04 61 /min [facility] of 16:20:00 [facility] Body temperature 2021-06-04 36.17 Tasia [facility] of 16:20:00 [facility] Respiratory rate 2021-06-04 18 /min [facility] of 16:20:00 [facility] Oxygen saturation 2021-06-04 100 /min [facility] of in Arterial blood 16:20:00 [facility] mariusz by Pulse oximetry Branch Body weight 2021-06-01 65.772 kg University of 19:00:00 [facility] BMI 2021-06-01 19.13 kg/m2 [facility] of 19:00:00 [facility] Body height 2021-05-31 185.4 cm University of 22:12:00 [facility] Systolic blood 2021-05-21 101 mm[Hg] [facility] of pressure 20:21:00 [facility] Diastolic blood 2021-05-21 68 mm[Hg] University o f pressure 20:21:00 [facility] Heart rate 2021-05-21 74 /min [facility] of 20:21:00 [facility] Body temperature 2021-05-21 36.56 Tasia [facility] of 20:21:00 [facility] Respiratory rate 2021-05-21 18 /min [facility] of 20:21:00 [facility] Oxygen saturation 2021-05-21 99 /min [facility] in Arterial blood 20:21:00 [facility] by Pulse oximetry [facility] Body height 2021-05-21 185.4 cm [facility] of 00:15:00 [facility] Body weight 2021-05-21 65.772 kg University of 00:15:00 [facility] BMI 2021-05-21 19.13 kg/m2 University of 00:15:00 [facility] Systolic blood 2021-05-09 101 mm[Hg] [facility] of pressure 16:32:00 [facility] Diastolic blood 2021-05-09 70 mm[Hg] University o f pressure 16:32:00 [facility] Heart rate 2021-05-09 69 /min University of 16:32:00 [facility] Body temperature 2021-05-09 36.72 Tasia University of 16:32:00 [facility] Respiratory rate 2021-05-09 16 /min [facility] of 16:32:00 [facility] Oxygen saturation 2021-05-09 99 /min [facility] of in Arterial blood 16:32:00 [facility] mariusz by Pulse oximetry Branch Body height 2021-05-08 185.4 cm University of 05:48:00 [facility] Body weight 2021-05-08 80.196 kg University of 05:48:00 [facility] BMI 2021-05-08 23.33 kg/m2 University of 05:48:00 [facility] Heart rate 2020-09-27 89 /min University 04:25:00 [facility] Respiratory rate 2020-09-27 20 /min University 04:25:00 [facility] Oxygen saturation 2020-09-27 99 /min [place] of in Arterial blood 04:25:[address] [facility] by Pulse oximetry Branch Systolic blood 2020-09-27 103 mm[Hg] [facility] pressure 04:02:00 [facility] Diastolic blood 2020-09-27 78 mm[Hg] University o f pressure 04:02:00 [facility] Body temperature 2020-09-27 36.72 Tasia University of 04:00:00 [facility] Body weight 2020-09-26 79.379 kg University of 22:35:00 [facility] BMI 2020-09-26 23.09 kg/m2 University of 22:35:00 [facility] Systolic blood 2020-08-24 105 mm[Hg] [facility] pressure 17:24:00 [facility] Diastolic blood 2020-08-24 64 mm[Hg] [facility] pressure 17:24:00 [facility] [facility] Heart rate 2020-08-24 83 /min [facility] 17:24:00 [facility] Body temperature 2020-08-24 36.56 Tasia University of 17:24:00 [facility] Respiratory rate 2020-08-24 16 /min University of 17:24:00 [facility] Oxygen saturation 2020-08-24 98 /min University of in Arterial blood 17:24:[address] [facility] by Pulse oximetry Branch Body height 2020-08-23 185.4 cm University of 03:19:00 [facility] Body weight 2020-08-23 79.379 kg University of 03:19:00 [facility] BMI 2020-08-23 23.09 kg/m2 University of 03:19:00 [facility] Systolic blood 2020-07-10 126 mm[Hg] University of pressure 01:32:00 [facility] Diastolic blood 2020-07-10 67 mm[Hg] University o f pressure 01:32:00 [facility] Heart rate 2020-07-10 92 /min University of 01:32:00 [facility] Body temperature 2020-07-10 37.17 Tasia University of 01:32:00 [facility] Respiratory rate 2020-07-10 16 /min University of :32:00 [facility] Oxygen saturation 2020-07-10 100 /min University of in Arterial blood 01:32:[address] [facility] by Pulse oximetry Branch Body height 2020-07-09 154.9 cm University of 22:23:00 [facility] Body weight 2020-07-09 68.04 kg University of 22:23:00 [facility] BMI 2020-07-09 28.34 kg/m2 University of 22:23:00 [facility] Systolic blood 2020-06-05 106 mm[Hg] University of pressure 15:00:00 [facility] Diastolic blood 2020-06-05 72 mm[Hg] University o f pressure 15:00:00 [facility] Heart rate 2020-06-05 84 /min University of 15:00:00 [facility] Respiratory rate 2020-06-05 18 /min University of 15:00:00 [facility] Oxygen saturation 2020-06-05 100 /min University of in Arterial blood 15:00:[address] [facility] by Pulse oximetry Branch Body temperature 2020-06-05 36.61 Tasia University of 14:54:52 [facility] Body weight 2020-06-05 65.772 kg University of 11:48:00 [facility] BMI 2020-06-05 19.13 kg/m2 University of 11:48:00 [facility] Systolic blood 2020-06-04 130 mm[Hg] University of pressure 18:30:00 [facility] Diastolic blood 2020-06-04 84 mm[Hg] University o f pressure 18:30:00 [facility] Heart rate 2020-06-04 72 /min University of 18:30:00 [facility] Body temperature 2020-06-04 36.72 Tasia University of 18:30:00 [facility] Respiratory rate 2020-06-04 16 /min University of 18:30:00 [facility] Oxygen saturation 2020-06-04 98 /min University of in Arterial blood 18:30:00 [facility] mariusz by Pulse oximetry Branch Systolic blood 2020-05-31 90 mm[Hg] University of pressure 19:59:00 [facility] Diastolic blood 2020-05-31 59 mm[Hg] University o f pressure 19:59:00 [facility] Heart rate 2020-05-31 88 /min University of 19:59:00 [facility] Body temperature 2020-05-31 36.78 Tasia University of 19:59:00 [facility] Respiratory rate 2020-05-31 16 /min University of 19:59:00 [facility] Oxygen saturation 2020-05-31 98 /min University of in Arterial blood 19:59:[address] [facility] by Pulse oximetry Branch Body height 2020-05-30 185.4 cm University of 18:29:00 [facility] Body weight 2020-05-30 69.5 kg weighed in bed University of 18:29:00 [facility] BMI 2020-05-30 20.21 kg/m2 University of 18:29:00 [facility] Systolic blood 2020-05-22 100 mm[Hg] University of pressure 04:38:00 [facility] Diastolic blood 2020-05-22 71 mm[Hg] University o f pressure 04:38:00 [facility] Heart rate 2020-05-22 90 /min University of 04:38:00 [facility] Respiratory rate 2020-05-22 18 /min University of 04:38:00 [facility] Oxygen saturation 2020-05-22 97 /min University of in Arterial blood 04:38:[address] [facility] by Pulse oximetry Branch Body temperature 2020-05-22 36.83 Tasia University of 02:02:11 [facility] Body height 2020-05-22 185.4 cm University of :59:00 [facility] Body weight 2020-05-22 65.772 kg University of :59:00 [facility] BMI 2020-05-22 19.13 kg/m2 University of :59:00 [facility] Systolic blood 2020-05-20 95 mm[Hg] University of pressure 18:33:34 [facility] Diastolic blood 2020-05-20 62 mm[Hg] University o f pressure 18:33:34 [facility] Heart rate 2020-05-20 86 /min University [facility] 18:33:34 [facility] Respiratory rate 2020-05-20 20 /min University of 18:33:34 [facility] Oxygen saturation 2020-05-20 98 /min [facility] of in Arterial blood 18:33:34 [facility] by Pulse oximetry [facility] Body temperature 2020-05-20 37 Tasia University of 12:02:00 [facility] Body weight 2020-05-20 65.8 kg University of 12:02:00 [facility] BMI 2020-05-20 19.14 kg/m2 University of 12:02:00 [facility] Systolic blood 2020-05-20 101 mm[Hg] University of pressure 10:58:00 [facility] Diastolic blood 2020-05-20 56 mm[Hg] University o f pressure 10:58:00 [facility] Heart rate 2020-05-20 79 /min University of 10:58:00 [facility] Body temperature 2020-05-20 37 Tasia University of 10:58:00 [facility] Respiratory rate 2020-05-20 16 /min University of 10:58:00 [facility] Oxygen saturation 2020-05-20 99 /min University of in Arterial blood 10:58:00 [facility] mariusz by Pulse oximetry Branch Body height 2020-05-20 185.4 cm University of 02:36:00 [facility] Body weight 2020-05-20 65.772 kg University of 02:36:00 [facility] BMI 2020-05-20 19.13 kg/m2 University of 02:36:00 [facility] Systolic blood 2020-05-12 93 mm[Hg] University of pressure 17:02:00 [facility] Diastolic blood 2020-05-12 61 mm[Hg] University o f pressure 17:02:00 [facility] Body temperature 2020-05-12 37.06 Tasia [facility] 17:02:00 [facility] Heart rate 2020-05-12 74 /min University of 09:00:00 [facility] Respiratory rate 2020-05-12 18 /min [facility] 09:00:00 [facility] Oxygen saturation 2020-05-12 95 /min [facility] in Arterial blood 09:00:00 [facility] Pulse oximetry [facility] Body height 2020-05-05 185.4 cm University of 09:05:00 [facility] Body weight 2020-05-05 65.772 kg University of 09:05:00 [facility] BMI 2020-05-05 19.13 kg/m2 University of 09:05:00 [facility] Systolic blood 2020-05-03 107 mm[Hg] [facility] of pressure 04:30:00 [facility] Diastolic blood 2020-05-03 62 mm[Hg] University o f pressure 04:30:00 [facility] Heart rate 2020-05-03 105 /min University of 04:30:00 [facility] Body temperature 2020-05-03 37.22 Tasia University of 04:30:00 [facility] Respiratory rate 2020-05-03 14 /min [facility] of 04:30:00 [facility] Body height 2020-05-03 185.4 cm University of 04:30:00 [facility] Body weight 2020-05-03 65.772 kg University of 04:30:00 [facility] BMI 2020-05-03 19.13 kg/m2 University of 04:30:00 [facility] Systolic blood 2020-05-02 105 mm[Hg] University of pressure 12:46:00 [facility] Diastolic blood 2020-05-02 57 mm[Hg] University o f pressure 12:46:00 [facility] Heart rate 2020-05-02 79 /min University of 12:46:00 [facility] Body temperature 2020-05-02 36.28 Tasia University of 12:46:00 [facility] Respiratory rate 2020-05-02 16 /min University of 12:46:00 [facility] Oxygen saturation 2020-05-02 98 /min University in Arterial blood 12:46:[address] [facility] by Pulse oximetry Branch Body height 2020-04-16 185.4 cm University of 20:11:00 [facility] Body weight 2020-04-16 79.379 kg University of 20:11:00 [facility] BMI 2020-04-16 23.09 kg/m2 University of 20:11:00 [facility] Respiratory rate 2020-04-06 12 /min [facility] of 16:20:00 [facility] Systolic blood 2020-03-28 125 mm[Hg] University of pressure 16:00:00 [facility] Diastolic blood 2020-03-28 87 mm[Hg] University o f pressure 16:00:00 [facility] Heart rate 2020-03-28 74 /min [facility] of 16:00:00 [facility] Body temperature 2020-03-28 36.44 Tasia University [facility] 16:00:00 [facility] Respiratory rate 2020-03-28 18 /min [facility] of 16:00:00 [facility] Oxygen saturation 2020-03-28 100 /min University of in Arterial blood 16:00:00 [facility] mariusz by Pulse oximetry Branch Body height 2020-03-26 185.4 cm University of 03:49:00 [facility] Body weight 2020-03-26 74.844 kg University of 03:49:00 [facility] BMI 2020-03-26 21.77 kg/m2 University of 03:49:00 [facility] Systolic blood 2020-03-05 107 mm[Hg] University of pressure 16:00:00 [facility] Diastolic blood 2020-03-05 67 mm[Hg] University o f pressure 16:00:00 [facility] Heart rate 2020-03-05 56 /min [facility] of 16:00:00 [facility] Body temperature 2020-03-05 36.5 Tasia University of 16:00:00 [facility] Respiratory rate 2020-03-05 18 /min [facility] of 16:00:00 [facility] Oxygen saturation 2020-03-05 100 /min University of in Arterial blood 16:00:[address] [facility] by Pulse oximetry Branch Body height 2020-03-03 185.4 cm University of 05:49:00 [facility] Body weight 2020-03-03 71.668 kg University of 05:49:00 [facility] BMI 2020-03-03 20.85 kg/m2 University of 05:49:00 [facility] Systolic blood 2020-02-27 100 mm[Hg] University of pressure 21:12:00 [facility] Diastolic blood 2020-02-27 74 mm[Hg] University o f pressure 21:12:00 [facility] Heart rate 2020-02-27 90 /min University of 21:12:00 [facility] Body temperature 2020-02-27 35.78 Tasia University of 21:12:00 [facility] Respiratory rate 2020-02-27 19 /min [facility] of 21:12:00 [facility] Oxygen saturation 2020-02-27 99 /min [facility] of in Arterial blood 21:12:00 [facility] mariusz by Pulse oximetry Branch Body weight 2020-02-26 71.215 kg University of 23:05:00 [facility] BMI 2020-02-26 20.71 kg/m2 University of 23:05:00 [facility] Systolic blood 2020-02-26 132 mm[Hg] University of pressure 07:43:00 [facility] Diastolic blood 2020-02-26 71 mm[Hg] University o f pressure 07:43:00 [facility] Heart rate 2020-02-26 82 /min University of 07:43:00 [facility] Respiratory rate 2020-02-26 18 /min University of 07:43:00 [facility] Oxygen saturation 2020-02-26 100 /min University of in Arterial blood 07:43:00 [facility] mariusz by Pulse oximetry Branch Body temperature 2020-02-26 36.94 Tasia University [facility] 04:57:00 [facility] Body height 2020-02-26 185.4 cm University of 02:30:00 [facility] Body weight 2020-02-26 68.04 kg University of 02:30:00 [facility] BMI 2020-02-26 19.79 kg/m2 University of 02:30:00 [facility] Systolic blood 2020-02-05 100 mm[Hg] University of pressure 16:00:00 [facility] Diastolic blood 2020-02-05 61 mm[Hg] University o f pressure 16:00:00 [facility] Heart rate 2020-02-05 60 /min University of 16:00:00 [facility] Body temperature 2020-02-05 36.67 Tasia [facility] of 16:00:00 [facility] Respiratory rate 2020-02-05 17 /min [facility] of 16:00:00 [facility] Oxygen saturation 2020-02-05 98 /min [facility] of in Arterial blood 16:00:00 [facility] mariusz by Pulse oximetry Branch Body height 2020-01-28 185.4 cm University of 23:13:00 [facility] Body weight 2020-01-28 68.04 kg University of 23:13:00 [facility] BMI 2020-01-28 19.79 kg/m2 University of 23:13:00 [facility] Systolic blood 2020-02-05 100 mm[Hg] University of pressure 16:00:00 [facility] Diastolic blood 2020-02-05 61 mm[Hg] University o f pressure 16:00:00 [facility] Heart rate 2020-02-05 60 /min University of 16:00:00 [facility] Body temperature 2020-02-05 36.67 Tasia University of 16:00:00 [facility] Respiratory rate 2020-02-05 17 /min University of 16:00:00 [facility] Oxygen saturation 2020-02-05 98 /min [facility] in Arterial blood 16:00:00 [facility] by Pulse oximetry [facility] Body height 2020-01-28 185.4 cm University of 23:13:00 [facility] Body weight 2020-01-28 68.04 kg University of 23:13:00 [facility] BMI 2020-01-28 19.79 kg/m2 University of 23:13:00 [facility] Systolic blood 2020-01-27 114 mm[Hg] University of pressure 00:32:00 [facility] Diastolic blood 2020-01-27 66 mm[Hg] University o f pressure 00:32:00 [facility] Heart rate 2020-01-27 73 /min University of 00:32:00 [facility] Body temperature 2020-01-27 36.67 Tasia University of 00:32:00 [facility] Respiratory rate 2020-01-27 18 /min University of 00:32:00 [facility] Oxygen saturation 2020-01-27 97 /min [facility] of in Arterial blood 00:32:00 [facility] mariusz by Pulse oximetry Branch Body height 2020-01-24 185.4 cm University of 23:55:00 [facility] Body weight 2020-01-24 68.04 kg University of 23:55:00 [facility] BMI 2020-01-24 19.79 kg/m2 University of 23:55:00 [facility] Systolic blood 2020-01-27 114 mm[Hg] [facility] of pressure 00:32:00 [facility] Diastolic blood 2020-01-27 66 mm[Hg] University o f pressure 00:32:00 [facility] Heart rate 2020-01-27 73 /min [facility] of 00:32:00 [facility] Body temperature 2020-01-27 36.67 Tasia [facility] of 00:32:00 [facility] Respiratory rate 2020-01-27 18 /min [facility] of 00:32:00 [facility] Oxygen saturation 2020-01-27 97 /min [facility] in Arterial blood 00:32:00 [place] [facility] by Pulse oximetry [facility] Body height 2020-01-24 185.4 cm University of 23:55:00 [facility] Body weight 2020-01-24 68.04 kg University of 23:55:00 [facility] BMI 2020-01-24 19.79 kg/m2 University of 23:55:00 [facility] Body temperature 2019-12-13 36.72 Tasia University 02:56:16 [facility] Systolic blood 2019-12-13 114 mm[Hg] University of pressure 01:57:00 [facility] Diastolic blood 2019-12-13 77 mm[Hg] University o f pressure 01:57:00 [facility] Heart rate 2019-12-13 75 /min University of :57:00 [facility] Respiratory rate 2019-12-13 20 /min [place] of :57:00 [facility] Body height 2019-12-13 185.4 cm [place] of :57:00 [facility] Body weight 2019-12-13 68.04 kg [place] of :57:00 [facility] BMI 2019-12-13 19.79 kg/m2 [place] of :57:00 [facility] Oxygen saturation 2019-12-13 97 /min [facility] in Arterial blood 01:57:[address] [facility] by Pulse oximetry [place] Body temperature 2019-12-13 36.72 Tasia [facility] 02:56:16 [facility] Systolic blood 2019-12-13 114 mm[Hg] University of pressure 01:57:00 [facility] Diastolic blood 2019-12-13 77 mm[Hg] University o f pressure 01:57:00 [facility] Heart rate 2019-12-13 75 /min University of :57:00 [facility] Respiratory rate 2019-12-13 20 /min [place] of :57:00 [facility] Body height 2019-12-13 185.4 cm [place] of :57:00 [facility] Body weight 2019-12-13 68.04 kg University of :57:00 [facility] BMI 2019-12-13 19.79 kg/m2 [place] of :57:00 [facility] Oxygen saturation 2019-12-13 97 /min [facility] of in Arterial blood 01:57:00 [place] [facility] Pulse oximetry [place] Systolic blood 2022-03-13 94 mm[Hg] [facility] pressure 15:33:00 Diastolic blood 2022-03-13 62 mm[Hg] [facility] pressure 15:33:00 Heart rate 2022-03-13 109 /min [facility] 15:33:00 Body temperature 2022-03-13 36.67 Tasia [facility] 15:33:00 Respiratory rate 2022-03-13 20 /min [facility] 15:33:00 Body height 2022-03-13 185.4 cm [facility] 15:33:00 Body weight 2022-03-13 66.679 kg [facility] 15:33:00 BMI 2022-03-13 19.39 kg/m2 [facility] 15:33:00 Oxygen saturation 2022-03-13 100 /min [facility] Arterial blood 15:33:00 by Pulse oximetry Systolic blood 2022-03-09 107 mm[Hg] [facility] pressure 11:00:00 [facility] Diastolic blood 2022-03-09 66 mm[Hg] [facility] pressure 11:00:00 [facility] Heart rate 2022-03-09 58 /min [facility] 11:00:00 [facility] Body temperature 2022-03-[address] [facility] 11:[facility]:00 [facility] Respiratory rate 2022-03-09 16 /min [facility] 11:00:00 [facility] Oxygen saturation 2022-03-09 100 /min [facility] in Arterial blood 11:00:00 [facility] nter by Pulse oximetry Body height 2022-03-[address] [facility] 12:05:00 [facility] Body weight 2022-03-[address] [facility] 12:05:00 [facility] BMI 2022-03-06 19.13 kg/m2 [facility] 12:05:00 [facility] Procedures Procedure Date / Time Performing Clinician Source Performed EKG-12 LEAD 2023-03-20 22:24:24 Shy [facility] LACTIC ACID WHOLE BLOOD 2023-03-20 20:41:00 Shy [facility] CREATINE KINASE 2023-03-20 20:27:00 Shy [facility] LIPASE 2023-03-20 20:27:00 Shy [facility] COMP. METABOLIC PANEL 2023-03-20 20:27:00 Sabi Robledo [facility] ([id number]) [facility] ETHANOL 2023-03-20 20:27:00 Shy [facility] CBC WITH DIFF 2023-03-20 20:27:00 Shy [facility] EXTERNAL PROVIDER RECORDS 2023-02-12 05:01:00 Doctor Unassigned, [facility] May [facility] URINE DRUG (IMMUNOASSAY) - 2023-01-28 11:00:00 [facility] COMPREHENSIVE DRUG SCREEN [facility] 2023-01-28 10:49:00 [facility] BASIC METABOLIC PANEL (NA, 2023-01-28 10:49:00 Kodi Gonzalez ii [facility] K, CL, CO2, GLUCOSE, BUN, Medica l Branch CREATININE, [place]) CBC WITH DIFF 2023-01-28 10:49:00 [facility] PHOSPHORUS 2023-01-27 22:43:00 [facility] HEPATIC FUNCTION PANEL 2023-01-27 22:43:00 [facility] ([id number]) (ALB,T.PRO,BILI [facility] T,BU/BC,ALT,AST,ALK PHOS) BASIC METABOLIC PANEL (NA, 2023-01-27 22:43:00 [facility] K, CL, CO2, GLUCOSE, BUN, [facility] CREATININE, [place]) CBC WITH DIFF 2023-01-27 22:43:00 [facility] GLYCOSYLATED HEMOGLOBIN 2023-01-27 22:43:00 [facility] (A1C) [facility] URINALYSIS 2023-01-27 02:30:00 Lamont Hilton [facility] BASIC METABOLIC PANEL (NA, 2022-12-07 15:38:00 Robb Flores [facility] K, CL, CO2, GLUCOSE, BUN, [facility] CREATININE, [place]) XR KUB 2022-12-06 02:15:02 Kodi Gonzalez [facility] ILEOSTOMY TAKEDOWN 2022-12-04 17:34:00 [facility]NAST[facility] BOWEL 2022-12-04 17:34:00 Ph[facility]avia [facility] COLONOSCOPY 2022-12-04 17:34:00 Phataoctavia [facility] ILEOSTOMY TAKEDOWN 2022-12-04 17:34:00 Phataoctavia [facility] ANASTOMOSIS BOWEL 2022-12-04 17:34:00 Phatak, [facility] COLONOSCOPY 2022-12-04 17:34:00 Phatak, [facility] MAGNESIUM 2022-12-04 10:19:00 Gayatri Pyle [facility] BASIC METABOLIC PANEL (NA, 2022-12-04 10:19:00 Gayatri Pyle [facility] K, CL, CO2, GLUCOSE, BUN, Medica l Branch CREATININE, CA) CBC WITH DIFF 2022-12-04 10:19:00 Gayatri Pyle [facility] PROTHROMBIN TIME / INR 2022-12-04 10:19:00 Gayatri Pyle [facility] ACTIVATED PARTIAL THRMPLAS 2022-12-04 10:19:00 Gayatri Pyle [facility] MAGNESIUM 2022-12-04 10:19:00 Gayatri Pyle [facility] BASIC METABOLIC PANEL (NA, 2022-12-04 10:19:00 Gayatri Pyle [facility] K, CL, CO2, GLUCOSE, BUN, Medica l Branch CREATININE, CA) CBC WITH DIFF 2022-12-04 10:19:00 Gayatri Pyle [facility] PROTHROMBIN TIME / INR 2022-12-04 10:19:00 Gayatri Pyle [facility] ACTIVATED PARTIAL THRMPLAS 2022-12-04 10:19:00 Gayatri Pyle [facility] MAGNESIUM 2022-12-03 10:42:00 Gayatri Pyle [facility] BASIC METABOLIC PANEL (NA, 2022-12-03 10:42:00 Gayatri Pyle [facility] K, CL, CO2, GLUCOSE, BUN, Medica l Branch CREATININE, CA) CBC WITH DIFF 2022-12-03 10:42:00 Gayatri Pyle [facility] MAGNESIUM 2022-12-03 10:42:00 Gayatri Pyle [facility] BASIC METABOLIC PANEL (NA, 2022-12-03 10:42:00 Gayatri Pyle heidi [facility] K, CL, CO2, GLUCOSE, BUN, Medica l Branch CREATININE, CA) CBC WITH DIFF 2022-12-03 10:42:00 Gayatri Pyle [facility] HB ABO GROUPING 2022-12-02 21:21:00 Mark [facility] HB ABO GROUPING 2022-12-02 21:21:00 Mark [facility] PHOSPHORUS 2022-12-02 09:47:00 Gayatri Pyle [facility] MAGNESIUM 2022-12-02 09:47:00 Dhara [facility] BASIC METABOLIC PANEL (NA, 2022-12-02 09:47:00 Lisa Jules [facility] K, CL, CO2, GLUCOSE, BUN, C. Medica l Branch CREATININE, CA) PHOSPHORUS 2022-12-02 09:47:00 Gayatri Pyle [facility] MAGNESIUM 2022-12-02 09:47:00 Dhara [facility] BASIC METABOLIC PANEL (NA, 2022-12-02 09:47:00 Lisa Jules [facility] K, CL, CO2, GLUCOSE, BUN, C. Medica l Branch CREATININE, CA) TRANSTHORACIC ECHO (TTE) 2022-12-01 14:48:00 DosKristofer conley [facility] W/ CONTRAST Medical [facility] TRANSTHORACIC ECHO (TTE) 2022-12-01 14:48:00 DosKristofer conley [facility] W/ CONTRAST Medical [facility] MAGNESIUM 2022-12-01 10:03:00 Gayatri Pyle [facility] BASIC METABOLIC PANEL (NA, 2022-12-01 10:03:00 Gayatri Pyle [facility] K, CL, CO2, GLUCOSE, BUN, Medica l Branch CREATININE, CA) CBC WITH DIFF 2022-12-01 10:03:00 Gayatri Pyle [facility] MAGNESIUM 2022-12-01 10:03:00 Gayatri Pyle [facility] BASIC METABOLIC PANEL (NA, 2022-12-01 10:03:00 Gayatri Pyel [facility] K, CL, CO2, GLUCOSE, BUN, Medica l Branch CREATININE, CA) CBC WITH DIFF 2022-12-01 10:03:00 Gayatri Pyle [facility] MAGNESIUM 2022-11-30 09:48:00 Dhara [facility] BASIC METABOLIC PANEL (NA, 2022-11-30 09:48:00 Lisa Jules [facility] K, CL, CO2, GLUCOSE, BUN, C. Medica l Branch CREATININE, CA) CBC WITH DIFF 2022-11-30 09:48:00 Dhara [facility] MAGNESIUM 2022-11-30 09:48:00 Dhara [facility] BASIC METABOLIC PANEL (NA, 2022-11-30 09:48:00 Lisa Jules [facility] K, CL, CO2, GLUCOSE, BUN, C. Medica l Branch CREATININE, CA) CBC WITH DIFF 2022-11-30 09:48:00 Dhara [facility] LACTIC ACID WHOLE BLOOD 2022-11-29 13:40:00 Pedro [facility] LACTIC ACID WHOLE BLOOD 2022-11-29 13:40:00 Pedro [facility] MAGNESIUM 2022-11-29 08:43:00 Gayatri Pyle [facility] BASIC METABOLIC PANEL (NA, 2022-11-29 08:43:00 Gayatri Pyle heidi [facility] K, CL, CO2, GLUCOSE, BUN, Medica l Branch CREATININE, CA) CBC WITH DIFF 2022-11-29 08:43:00 PyleGayatri hatfield [facility] MAGNESIUM 2022-11-29 08:43:00 Pyle, Gayatri Mello [facility] BASIC METABOLIC PANEL (NA, 2022-11-29 08:43:00 Pyle, Gayatri pope [facility] K, CL, CO2, GLUCOSE, BUN, Medica l Branch CREATININE, CA) CBC WITH DIFF 2022-11-29 08:43:00 PyleGayatri hatfield [facility] MAGNESIUM 2022-11-28 21:15:00 Pyle, Gayatri Mello [facility] BASIC METABOLIC PANEL (NA, 2022-11-28 21:15:00 Pyle, Gayatri Kowalski [facility] K, CL, CO2, GLUCOSE, BUN, Medica l Branch CREATININE, CA) CBC WITH DIFF 2022-11-28 21:15:00 PyleGayatri [facility] MAGNESIUM 2022-11-28 21:15:00 PyelGayatri [facility] BASIC METABOLIC PANEL (NA, 2022-11-28 21:15:00 Pyle, Gayatri pope [facility] K, CL, CO2, GLUCOSE, BUN, Medica l Branch CREATININE, CA) CBC WITH DIFF 2022-11-28 21:15:00 PyleGayatri hatfield [facility] PREALBUMIN, SERUM 2022-11-28 07:25:00 Grant Cheema [facility] ALBUMIN 2022-11-28 07:25:00 Grant Cheema [facility] MAGNESIUM 2022-11-28 07:25:00 Varsha Meaz [facility] Christos Oliveira [facility] BASIC METABOLIC PANEL (NA, 2022-11-28 07:25:00 Derrick Deaphilipp [facility] K, CL, CO2, GLUCOSE, BUN, Christos Morin [facility] Branch CREATININE, CA) PREALBUMIN, SERUM 2022-11-28 07:25:00 Grant Cheema [facility] ALBUMIN 2022-11-28 07:25:00 Grant Cheema [facility] MAGNESIUM 2022-11-28 07:25:00 [facility] BASIC METABOLIC PANEL (NA, 2022-11-28 07:25:00 Varsha Meza [facility] K, CL, CO2, GLUCOSE, BUN, [facility] CREATININE, CA) LACTIC ACID WHOLE BLOOD 2022-11-27 20:46:00 Varsha Meza [facility] LACTIC ACID WHOLE BLOOD 2022-11-27 20:46:00 Varsha Meza [facility] BASIC METABOLIC PANEL (NA, 2022-11-27 18:36:00 Dwain Junior [facility] K, CL, CO2, GLUCOSE, BUN, [facility]) BASIC METABOLIC PANEL (NA, 2022-11-27 18:36:00 Dwain Junior [facility] K, CL, CO2, GLUCOSE, BUN, [facility] CREAT[facility]INE, CA) URINALYSIS 2022-11-27 15:58:00 Dwain Junior [facility] CREATININE, URINE RANDOM 2022-11-27 15:58:00 Varsha Meza [facility] UREA NITROGEN, URINE 2022-11-27 15:58:[address] [facility] RANDOM [facility] SODIUM, URINE RANDOM 2022-11-27 15:58:00 Varsha Meza [facility] URINALYSIS 2022-11-27 15:58:00 Dwain Junior [facility] CREATININE, URINE RANDOM 2022-11-27 15:58:00 Varsha Meza [facility] UREA NITROGEN, URINE 2022-11-27 15:58:[address] [facility] RANDOM [facility] SODIUM, URINE RANDOM 2022-11-27 15:58:00 Varsha Meza [facility] HB ECG ROUTINE & RHYTHM 2022-11-27 14:21:43 Dwain Junior [facility] HB ECG ROUTINE & RHYTHM 2022-11-27 14:21:43 Dwain Junior [facility] LACTIC ACID WHOLE BLOOD 2022-11-27 14:01:00 Dwain Junior [facility] LACTIC ACID WHOLE BLOOD 2022-11-27 14:01:00 Dwain Junior [facility] BLOOD CULTURE SCREEN 2022-11-27 14:00:00 Dwain Junior [facility] PHOSPHORUS 2022-11-27 14:00:00 Dwain Junior [facility] MAGNESIUM 2022-11-27 14:00:00 Dwain Junior [facility] TROPONIN I 2022-11-27 14:00:00 Dwain Junior [facility] COMP. METABOLIC PANEL 2022-11-27 14:00:00 Dwain Junior [facility] ([id number]) [facility] CBC WITH DIFF 2022-11-27 14:00:00 Dwain Junior [facility] BLOOD CULTURE SCREEN 2022-11-27 14:00:00 Dwain Junior [facility] PHOSPHORUS 2022-11-27 14:00:00 Dwain Junior [facility] MAGNESIUM 2022-11-27 14:00:00 Dwain Junior [facility] TROPONIN I 2022-11-27 14:00:00 Dwain Junior [facility] COMP. METABOLIC PANEL 2022-11-27 14:00:00 Dwain Junior [facility] ([id number]) [facility] CBC WITH DIFF 2022-11-27 14:00:00 Dwain Junior [facility] XR CHEST 1 VW 2022-11-27 13:42:00 MarvMedhatDwain O [facility] XR CHEST 1 VW 2022-11-27 13:42:00 Dwain Junior [facility] HOSPITAL ADMISSION 2022-11-27 05:01:00 Doctor Unassigned, [facility] Name [facility] HOSPITAL ADMISSION 2022-11-27 05:01:00 Doctor Unassigned, [facility] MAGNESIUM 2022-11-22 09:24:00 Myke [facility] BASIC METABOLIC PANEL (NA, 2022-11-22 09:24:00 [facility], CO2, GLUCOSE, BUN, Medica l Branch CREATININE, CA) CBC WITH DIFF 2022-11-22 09:24:00 [facility] 2022-11-21 05:09:00 Tristen [facility] BASIC METABOLIC PANEL (NA, 2022-11-21 05:09:00 [facility], CL, CO2, GLUCOSE, BUN, Medica l Branch CREATININE, CA) CBC WITH DIFF 2022-11-21 05:09:00 Tristen [facility] AC PANEL 21 + LACTIC ACID 2022-11-21 05:07:00 Dana Cox [facility] LACTIC ACID WHOLE BLOOD 2022-11-20 14:51:00 Wilfred Stringer [facility] LACTIC ACID WHOLE BLOOD 2022-11-20 11:33:00 Wilfred Stringer [facility] ALBUMIN 2022-11-20 09:45:00 Tristen [facility] MAGNESIUM 2022-11-20 09:45:00 [facility] CORT[facility] AM 2022-11-20 09:45:00 [facility] 2022-11-20 09:45:00 Tristen [facility] HORMONE [facility] BASIC METABOLIC PANEL (NA, 2022-11-20 09:45:00 [facility], [facility], CO2, GLUCOSE, BUN, Medica l [place] CREATININE, CA) CBC WITH DIFF 2022-11-20 09:45:00 [facility] FREE T4 2022-11-20 00:40:00 Tristen [facility] BASIC METABOLIC PANEL (NA, 2022-11-20 00:40:00 [facility] K, CL, CO2, GLUCOSE, BUN, Medica l [place] CREATININE, CA) OSMOLALITY URINE 2022-11-19 23:34:00 [facility], URINE RANDOM 2022-11-19 23:34:00 Wilfred Stringer [facility] SODIUM, URINE RANDOM 2022-11-19 23:34:00 Wilfred Stringer [facility] HB ECG ROUTINE & RHYTHM 2022-11-19 23:15:08 Wilfred Stringer [facility] BASIC METABOLIC PANEL (NA, 2022-11-19 20:05:00 [facility], CL, CO2, GLUCOSE, BUN, Medica [facility] CREATININE, CA) MAGNESIUM 2022-11-19 15:58:00 Constantin Perez [facility] COMP. METABOLIC PANEL 2022-11-19 15:58:[address] [facility] ([id number]) Medical Branch ETHANOL 2022-11-19 15:58:00 Constantin Perez [facility] CBC WITH DIFF 2022-11-19 15:58:00 Constantin Perez [facility] COVID-19 (ID NOW RAPID 2022-11-19 15:25:00 Constantin Perez [facility] TESTING) Medical Branch LAB ONLY COVID 2022-11-19 15:25:00 Constantin Perez [facility] INTERPRETATION [facility] MAGNESIUM 2022-11-06 09:44:00 Shanell José [facility] BASIC METABOLIC PANEL (NA, 2022-11-06 09:44:00 Shanell José [facility] [place] K, CL, CO2, GLUCOSE, BUN, Medica l Branch CREATININE, CA) CBC WITH DIFF 2022-11-06 09:44:00 Shanell José [facility] CORTISOL AM 2022-11-05 13:40:00 Shanell José [facility] BASIC METABOLIC PANEL (NA, 2022-11-05 09:49:00 Shanell José [facility] [place] K, CL, CO2, GLUCOSE, BUN, Medica l Branch CREATININE, CA) CBC WITH DIFF 2022-11-05 09:49:00 Shanell José [facility] BASIC METABOLIC PANEL (NA, 2022-11-05 03:00:00 Shanell José [facility] [place] K, CL, CO2, GLUCOSE, BUN, Medica l Branch CREATININE, CA) SODIUM 2022-11-04 18:26:00 Shanell José [facility] BASIC METABOLIC PANEL (NA, 2022-11-04 18:26:00 Micki Ramon [facility] [place] K, CL, CO2, GLUCOSE, BUN, Medica l Branch CREATININE, CA) OSMOLALITY, SERUM OR 2022-11-04 05:56:00 Shanell José [facility] MAGNESIUM 2022-11-04 05:55:00 Shanell José [facility] BASIC METABOLIC PANEL (NA, 2022-11-04 05:55:00 Shanell José [facility] K, CL, CO2, GLUCOSE, BUN, Medica l Branch CREATININE, CA) CBC WITH DIFF 2022-11-04 05:55:00 Shanell José [facility] POTASSIUM URINE 2022-11-04 05:30:00 Shanell José [facility] SODIUM URINE 2022-11-04 05:30:00 Shanell José [facility] VITAMIN B12, LEVEL 2022-11-03 21:13:00 Shanell José [facility] VITAMIN D, 25-OH 2022-11-03 21:12:00 Shanell José [facility] MAGNESIUM 2022-11-03 10:47:00 Shanell José [facility] BASIC METABOLIC PANEL (NA, 2022-11-03 10:47:00 Shanell José [facility] K, CL, CO2, GLUCOSE, BUN, Medica l Branch CREATININE, CA) CBC WITH DIFF 2022-11-03 10:47:00 Shanell José [facility] OSMOLALITY URINE 2022-11-03 05:34:00 Shanell José [facility] URINALYSIS 2022-11-03 05:34:00 Shanell José [facility] URINE CULTURE 2022-11-03 05:34:00 Shanell José [facility] CREATININE, URINE RANDOM 2022-11-03 05:34:00 Shanell José [facility] UREA NITROGEN, URINE 2022-11-03 05:34:00 Shanell José [facility] SODIUM 2022-11-03 04:19:00 Shanell José [facility] BLOOD CULTURE SCREEN 2022-11-03 04:18:00 Shanell José [facility] US RETROPERITONEAL LIMITED 2022-11-02 23:30:00 Shanell José [facility] LACTIC ACID WHOLE BLOOD 2022-11-02 22:56:00 Shanell José [facility] CLOSTRIDIUM DIFFICILE 2022-11-02 21:21:00 Shanell José [facility] FECAL PATHOGENS BY PCR 2022-11-02 21:21:00 Shanell José [facility] BLOOD CULTURE SCREEN 2022-11-02 20:59:00 Shanell José [facility] MAGNESIUM 2022-11-02 20:57:00 Shanell José [facility] COMP. METABOLIC PANEL 2022-11-02 20:57:00 Shanell José [facility] ([id number]) Medical Branch CBC WITHOUT DIFF 2022-11-02 20:57:00 Shanell José [facility] PHOSPHORUS 2022-11-02 18:28:00 Shanell José [facility] FREE T4 2022-11-02 18:28:00 Shanell José [facility] THYROID STIMULATING 2022-11-02 18:28:00 Shanell José [facility] HORMONE [facility] HEPATIC FUNCTION PANEL 2022-11-02 18:28:[address] [facility] ([id number]) (ALB,T.PRO,BILI [facility] T,BU/BC,ALT,AST,ALK PHOS) LACTIC ACID WHOLE BLOOD 2022-11-02 17:29:00 Mariaelena Gordillo [facility] HB ECG ROUTINE & RHYTHM 2022-11-02 13:58:35 Mariaelena Gordillo [facility] STRIP [facility] LIPASE 2022-11-02 13:16:00 Mariaelena Gordillo [facility] MAGNESIUM 2022-11-02 13:16:00 Mariaelena Gordillo [facility] TROPONIN I 2022-11-02 13:16:00 Mariaelena Gordillo [facility] COMP. METABOLIC PANEL 2022-11-02 13:16:[address] [facility] ([id number]) [facility] CBC WITH DIFF 2022-11-02 13:16:00 Mariaelena Gordillo [facility] GALV ONLY - INFLUENZA A B 2022-11-02 13:16:00 Mariaelena Gordillo U [facility] RSV PCR [facility] COVID-19 (ID NOW RAPID 2022-11-02 13:16:00 Mariaelena Gordillo [facility] TESTING) Medical Branch LAB ONLY COVID 2022-11-02 13:16:00 Mariaelena Gordillo [facility] INTERPRETATION Medical Branch HOSPITAL ADMISSION 2022-11-02 06:01:00 Doctor Unassigned, [facility] May Medical [place] CT ABDOMEN PELVIS W 2022-10-20 03:22:00 Alvarez Austin [facility] CONTRAST [facility] LIPASE 2022-10-20 01:43:00 Alvarez Austin [facility] MAGNESIUM 2022-10-20 01:43:00 Alvarez Austin [facility] COMP. METABOLIC PANEL 2022-10-20 01:43:00 Alvarez Austin [facility] ([id number]) [facility] CBC WITH DIFF 2022-10-20 01:43:00 Alvarez Austin [facility] CONSENT/REFUSAL FOR 2022-10-20 01:10:04 Doctor Unassigned, [facility] DIAGNOSIS AND TREATMENT [facility] [place] PHOSPHORUS 2022-05-21 09:31:00 Adriane [facility] MAGNESIUM 2022-05-21 09:31:00 Adriane [facility] BASIC METABOLIC PANEL (NA, 2022-05-21 09:31[facility], CO2, GLUCOSE, BUN, Medica l Branch CREATININE, CA) CBC WITH DIFF 2022-05-21 09:31:00 Adriane [facility] INTACT PTH CALCIUM GROUP 2022-05-20 18:29:00 Douglas Arizmendi U [facility] RENAL ARTERY DUPLEX - BY 2022-05-20 17:58:00 Douglas Arizmendi U [facility] VASCULAR LAB [facility] LACTIC ACID WHOLE BLOOD 2022-05-20 10:43:00 Eros Rios [facility] CREATINE KINASE 2022-05-20 08:36:00 Eros Rios [facility] URIC ACID 2022-05-20 08:36:00 Eros Rios [facility] MAGNESIUM 2022-05-20 08:36:00 Patel Rangel [facility] FERRITIN SERUM 2022-05-20 08:36:00 Blanca christophe [facility] CORTISOL AM 2022-05-20 08:36:00 Blanca christophe [facility] OSMOLALITY, SERUM OR 2022-05-20 08:36:[address] [facility] PLASMA [facility] OSMOLALITY URINE 2022-05-20 08:36:00 Blanca christophe [facility] AMMONIA, PLASMA 2022-05-20 08:36:00 Blanca christophe [facility] VITAMIN B12, LEVEL 2022-05-20 08:36:00 Blanca christophe [facility] THYROID STIMULATING 2022-05-20 08:36:00 Eros Rios [facility] HORMONE [facility] COMP. METABOLIC PANEL 2022-05-20 08:36:00 Eros Rios [facility] ([id number]) Medical [place] LIPID PANEL ([id number])(TOTAL 2022-05-20 08:36:00 Eros Rios [facility] CHOLESTEROL, [facility] TRIGLYCERIDES, HDL) IRON PANEL 2022-05-20 08:36:00 Eros Rios [facility] ETHANOL 2022-05-20 08:36:00 Blanca christophe [facility] URINE DRUG (IMMUNOASSAY) - 2022-05-20 08:36:00 Eros Rios [facility] COMPREHENSIVE DRUG SCREEN Medica l Branch SEDIMENTATION RATE 2022-05-20 08:36:00 Eros Rios [facility] CBC WITH DIFF 2022-05-20 08:36:00 Eros Rios [facility] GLYCOSYLATED HEMOGLOBIN 2022-05-20 08:36:00 Eros Rios [facility] (A1C) [facility] PROTHROMBIN TIME / INR 2022-05-20 08:36:00 Eros Rios [facility] URINALYSIS 2022-05-20 08:36:00 Blanca christophe [facility] OCCULT (GUAIAC) BLOOD 2022-05-20 08:36:00 Eros Rios [facility] URINE CULTURE 2022-05-20 08:36:00 Eros Rios [place] [facility] CLOSTRIDIUM DIFFICILE 2022-05-20 08:36:00 Eros Rios [facility] TOXIN [facility] VITAMIN D, 25-OH 2022-05-20 08:36:00 Eros Rios [facility] UREA NITROGEN, URINE 2022-05-20 08:36:00 Eros Rios [facility] SODIUM, URINE RANDOM 2022-05-20 08:36:00 Eros Rios [facility] PROTEIN CREAT RATIO URINE 2022-05-20 08:36:[address] [facility] AC VBG + LACTIC ACID 2022-05-20 08:36:00 Eros Rios [facility] FECAL PATHOGENS BY PCR 2022-05-20 08:36:00 Eros Rios [facility] CT ABDOMEN PELVIS W 2022-05-20 03:23:[address] [facility] CONTRAST [facility] COVID-19 (ID NOW RAPID 2022-05-20 01:44:00 Joel Baez [facility] TESTING) Medical [place] LAB ONLY COVID 2022-05-20 01:44:00 Joel Baez [facility] INTERPRETATION [facility] LACTIC ACID WHOLE BLOOD 2022-05-20 01:42:00 Joel Baez [facility] LIPASE 2022-05-20 01:30:00 Joel Baez [facility] COMP. METABOLIC PANEL 2022-05-20 01:30:[address] [facility] ([id number]) [facility] CBC WITH DIFF 2022-05-20 01:30:00 Joel Baez [facility] NOTICE OF PRIVACY 2022-05-19 23:54:00 Doctor Unassigned, [facility] PRACTICES May Medical Branch CONSENT/REFUSAL FOR 2022-05-19 23:53:24 Doctor Unassigned, [facility] DIAGNOSIS AND TREATMENT May Medical [facility] COMP. METABOLIC PANEL 2022-04-10 03:54:00 Alvarez Austin [facility] ([id number]) [facility] CBC WITH DIFF 2022-04-10 03:49:00 Alvarez Austin [facility] LIPASE 2022-04-10 03:07:00 Alvarez Austin [facility] XR CHEST 2 VW 2022-04-10 02:59:18 Alvarez Austin [facility] COVID-19 (ID NOW RAPID 2022-04-10 02:43:00 Alvarez Austin [facility] TESTING) Medical Branch PHOSPHORUS 2022-04-08 10:26:00 Kurt [facility] MAGNESIUM 2022-04-08 10:26:00 Kurt [facility] BASIC METABOLIC PANEL (NA, 2022-04-08 10:26:00 [facility], CO2, GLUCOSE, BUN, Medica l Branch CREATININE, CA) CBC WITH DIFF 2022-04-08 10:26:00 Kurt [facility] PHOSPHORUS 2022-04-07 09:45:00 Albrobert [facility] MAGNESIUM 2022-04-07 09:45:00 Marcela [facility] BASIC METABOLIC PANEL (NA, 2022-04-07 09:45:00 AlbDon jones [facility] K, CL, CO2, GLUCOSE, BUN, Medica l Branch CREATININE, CA) LACTIC ACID WHOLE BLOOD 2022-04-06 09:05:00 Rolf Lemus [facility] MAGNESIUM 2022-04-06 09:04:00 [facility] BASIC METABOLIC PANEL (NA, 2022-04-06 09:04:00 Rolf Lemus [facility] K, CL, CO2, GLUCOSE, BUN, Medica l Branch CREATININE, CA) CBC WITH DIFF 2022-04-06 09:04:00 Rolf Lemus [facility] BASIC METABOLIC PANEL (NA, 2022-04-05 08:12:00 Agatha Noonan [facility] K, CL, CO2, GLUCOSE, BUN, Medica l Branch CREATININE, CA) ACUTE CARE VENOUS BLOOD 2022-04-05 08:12:00 Amirah [facility] CBC WITH DIFF 2022-04-05 08:12:[facility] PANEL (NA, 2022-04-04 09:03:00 Rolf Lemus [facility] K, CL, CO2, GLUCOSE, BUN, Medica l Branch CREATININE, CA) US RETROPERITONEAL LIMITED 2022-04-03 23:10:49 Octavio Macario [facility] ACUTE CARE VENOUS BLOOD 2022-04-03 18:33:00 Amirah [facility] OSMOLALITY URINE 2022-04-03 17:59:00 Amirah [facility] BASIC METABOLIC PANEL (NA, 2022-04-03 17:59:00 Octavio Macario [facility] K, CL, CO2, GLUCOSE, BUN, Medica l Branch CREATININE, CA) CREATININE, URINE RANDOM 2022-04-03 17:59:00 Octavio Macario [facility] POTASSIUM, URINE RANDOM 2022-04-03 17:59:00 Amirah [facility] SODIUM, URINE RANDOM 2022-04-03 17:59:00 Octavio Macario [facility] MAGNESIUM 2022-04-03 09:29:00 Amirah Octavio [facility] OSMOLALITY, SERUM OR 2022-04-03 09:29:00 Amirah Octavio [facility] BASIC METABOLIC PANEL (NA, 2022-04-03 09:29:00 Juventino Thomas [facility] K, CL, CO2, GLUCOSE, BUN, Medica l Branch CREATININE, CA) CBC WITH DIFF 2022-04-03 09:29:00 Juventino Thomas [facility] CLOSTRIDIUM DIFFICILE 2022-04-03 03:44:00 Juventino Thomas [facility] LACTIC ACID WHOLE BLOOD 2022-04-03 03:38:00 William Juventino [facility] LACTIC ACID WHOLE BLOOD 2022-04-03 00:07:00 William [facility] URINE CULTURE 2022-04-02 22:39:00 Rekha Sheehan [facility] CT ABDOMEN PELVIS WO 2022-04-02 21:07:[address] [facility] CONTRAST [facility] LIPASE 2022-04-02 20:00:00 Aguila [facility] TROPONIN I 2022-04-02 20:00:00 Aguila [facility] HEPATIC FUNCTION PANEL 2022-04-02 20:00:[address] [facility] ([id number]) (ALB,T.PRO,BILI Medical Branch T,BU/BC,ALT,AST,ALK PHOS) BASIC METABOLIC PANEL (NA, 2022-04-02 20:00:00 Rekha Sheehan [facility] K, CL, CO2, GLUCOSE, BUN, Medica l Branch CREATININE, CA) URINALYSIS 2022-04-02 20:00:00 Aguila [facility] CBC WITH DIFF 2022-04-02 18:20:00 Aguila [facility] COVID-19 (ID NOW RAPID 2022-04-02 18:20:[address] [facility] TESTING) Medical Branch LAB ONLY COVID 2022-04-02 18:20:00 Aguila [facility] XR CHEST 2 VW 2022-04-02 17:29:13 Aguila [facility] HB ECG ROUTINE & RHYTHM 2022-04-02 16:32:43 Rekha Sheehan [facility] CONSENT/REFUSAL FOR 2022-04-02 16:29:46 Doctor Unassigned, [facility] DIAGNOSIS AND TREATMENT May Medical Branch BASIC METABOLIC PANEL 2022-03-07 05:51:00 Romie Kuo [facility] HEPATIC FUNCTION PANEL 2022-03-07 05:51:00 Shiela [facility] CBC W/PLT COUNT & AUTO 2022-03-07 05:51:00 Shiela [facility] DIFFERENTIAL Center CBC W/PLT COUNT & AUTO 2022-03-07 05:51:00 Shiela [facility] DIFFERENTIAL [place] US RENAL COMPLETE 2022-03-06 18:23:00 Shiela [facility] SARS-COV2/RT-PCR ([facility] & 2022-03-06 17:36:00 [facility] REF LABS) Center TSH/FREE T4 IF INDICATED 2022-03-06 14:18:00 [facility], FREE 2022-03-06 14:18:00 Aryan Tello [facility] ED ECG INTERPRETATION 2022-03-06 13:48:12 [facility]ST 1 VIEW PORTABLE / 2022-03-06 13:42:00 Aryan Tello [facility] BEDSIDE [facility] B-TYPE NATRIURETIC FACTOR 2022-03-06 13:23:00 Aryan Tello [facility] (BNP) [facility] CBC W/PLT COUNT & AUTO 2022-03-06 13:23:00 Aryan Tello [facility] DIFFERENTIAL [facility] COMPREHENSIVE METABOLIC 2022-03-06 13:23:00 Aryan Tello [facility] PANEL [facility] HIGH SENSITIVITY TROPONIN 2022-03-06 13:23:00 Aryan Tello [facility] MAGNESIUM 2022-03-06 13:23:00 Aryan Tello [facility] PHOSPHORUS 2022-03-06 13:23:00 Aryan Tello [facility] LACTIC ACID, VENOUS 2022-03-06 13:23:00 Aryan Tello [facility] CREATINE KINASE (CK) 2022-03-06 13:23:00 Aryan Tello [facility] CBC W/PLT COUNT & AUTO 2022-03-06 13:23:00 Aryan Tello [facility] S [facility] DIFFERENTIAL [facility] ECG 12-LEAD 2022-03-06 12:12:56 Unknown, Hl7 Doctor [facility] ECG 12-LEAD 2022-03-06 12:12:56 Unknown, Hl7 Doctor [facility] EKG-SCANNED 2022-03-06 00:00:00 ProviderJacqui [facility] BASIC METABOLIC PANEL 2022-02-20 05:10:00 Rufino Lazaro [facility] CBC (WITHOUT DIFFERENTIAL) 2022-02-20 05:10:00 Rufino L[facility] MAGNESIUM 2022-02-20 05:10:00 Rufino Lazaro Healt [facility] PHOSPHORUS 2022-02-20 05:10:00 Rufino Lazaro [facility] CBC (WITHOUT DIFFERENTIAL) 2022-02-20 05:10:00 Rufino L[facility] BASIC METABOLIC PANEL 2022-02-20 05:10:00 Rufino Lazaro [facility] MAGNESIUM 2022-02-20 05:10:00 [facility] 2022-02-20 05:10:00 Rufino Lazaro Healt h INFUSION PUMP 2022-02-19 19:03:50 Rufino Lazaro Healt h INFUSION PUMP 2022-02-19 19:03:50 Rufino Lazaro Healt h CBC/DIFF 2022-02-19 06:35:00 Fannie Blake alth PHOSPHORUS 2022-02-19 06:35:00 Fannie Blake COMPREHENSIVE METABOLIC 2022-02-19 06:35:00 Fannie Blake [facility] PANEL CBC 2022-02-19 06:35:00 Fannie Blake alth COMPREHENSIVE METABOLIC 2022-02-19 06:35:00 Fannie Blake [facility] PANEL CBC/DIFF 2022-02-19 06:35:00 Fannie Blake alth PHOSPHORUS 2022-02-19 06:35:00 Fannie Blake alth CBC 2022-02-19 06:35:00 Fannie Blake alth URINALYSIS W/REFLEX TO 2022-02-19 00:34:00 Fannie Blake [facility] URINE CULTURE URINALYSIS 2022-02-19 00:34:00 Philip Chadd Lynne [facility] URINE CULTURE COLLECTION 2022-02-19 00:34:00 [facility] Chadd [facility] KIT URINALYSIS W/REFLEX TO 2022-02-19 00:34:00 Fannie Blake [facility] URINE CULTURE URINALYSIS 2022-02-19 00:34:00 Philip Chadd Lynne [facility] URINE CULTURE COLLECTION 2022-02-19 00:34:00 [facility] Chadd [facility] KIT CORONAVIRUS, COVID-19, OLENA 2022-02-18 19:00:00 [facility] SARS-COV-2, FLU A/B, RSV 2022-02-18 19:00:00 [facility], FLU A/B, RSV 2022-02-18 19:00:00 [facility] CORONAVIRUS, COVID-19, OLENA 2022-02-18 19:00:00 [facility] Chadd [facility] XRAY CHEST 1 VIEW 2022-02-18 15:23:00 Roz Scales [facility] XRAY CHEST 1 VIEW 2022-02-18 15:23:00 Roz Scalse [facility] CONSULT CLINICAL CASE 2022-02-18 14:50:50 Roz Scales [facility] MANAGEMENT (RN/SW) CONSULT CLINICAL CASE 2022-02-18 14:50:50 Roz Scales [facility] MANAGEMENT (RN/SW) BASIC METABOLIC PANEL 2022-02-18 14:16:00 [facility] CBC/DIFF 2022-02-18 14:16:00 [facility] CREATINE KINASE (CK) 2022-02-18 14:16:00 [facility] MAGNESIUM 2022-02-18 14:16:00 AlbabSusana [facility] PHOSPHORUS 2022-02-18 14:16:00 Albab, Susana [facility] CBC 2022-02-18 14:16:00 Albab, Susana [facility] CBC/DIFF 2022-02-18 14:16:00 Albab, Susana [facility] BASIC METABOLIC PANEL 2022-02-18 14:16:00 AlbabSusana [facility] MAGNESIUM 2022-02-18 14:16:00 Albab, Susana [facility] PHOSPHORUS 2022-02-18 14:16:00 Albab, Susana [facility] CREATINE KINASE (CK) 2022-02-18 14:16:00 AlbabSusana [facility] CBC 2022-02-18 14:16:00 AlbabSusana Healt h BASIC METABOLIC PANEL 2022-02-11 03:34:[address] [facility] (WITHOUT DIFFERENTIAL) 2022-02-11 03:34:00 CucpinTeresa [facility] MAGNESIUM 2022-02-11 03:34:00 [place] [facility] PHOSPHORUS 2022-02-11 03:34:00 [place] [facility] BASIC METABOLIC PANEL 2022-02-11 03:34:00 Daily Isals [facility] MAGNESIUM 2022-02-11 03:34:00 [place] [facility] PHOSPHORUS 2022-02-11 03:34:00 JamilahTeresa de la garza [facility] th CBC (WITHOUT DIFFERENTIAL) 2022-02-11 03:34:00 Cucpin [facility] BASIC METABOLIC PANEL 2022-02-10 03:39:00 [facility]/DIFF 2022-02-10 03:39:00 [facility]4 2022-02-10 03:39:00 [facility] THYROID STIMULATING 2022-02-10 03:39:00 [facility] HORMONE (TSH) CBC 2022-02-10 03:39:00 [facility] CBC/DIFF 2022-02-10 03:39:00 Daily Islas Healt [facility] BASIC METABOLIC PANEL 2022-02-10 03:39:00 Daily [facility] CBC 2022-02-10 03:39:00 Daily Islas Healt [facility] THYROID STIMULATING 2022-02-10 03:39:00 JamilahfredericTeresa [facility] HORMONE (TSH) FREE T4 2022-02-10 03:39:00 Long Teresa [facility] th BASIC METABOLIC PANEL 2022-02-09 04:38:00 [facility] CBC/DIFF 2022-02-09 04:38:00 Daily Islas Healt [facility] CBC 2022-02-09 04:38:00 Daily [facility]las [facility] CBC/DIFF 2022-02-09 04:38:00 Daily Islas [facility]alt [facility] BASIC METABOLIC PANEL 2022-02-09 04:38:00 Daily [facility] CBC 2022-02-09 04:38:00 Daily [facility] CORTISOL, TOTAL 2022-02-08 11:37:00 Jian Schmitt [facility] e[facility] CORTISOL, TOTAL 2022-02-08 11:37:00 Jian Schmitt [facility] e[facility] GLUCOSE POC 2022-02-08 08:07:00 Daily [facility]SE [facility]OC 2022-02-08 08:07:00 Daily Islas [facility]alt [facility] CBC (WITHOUT DIFFERENTIAL) 2022-02-08 04:00:00 Jian Schmitt [facility] MAGNESIUM 2022-02-08 04:00:00 Jian Schmitt H ealth PHOSPHORUS 2022-02-08 04:00:00 Jian Schmitt H ealth PT/INR 2022-02-08 04:00:00 Jian Schmitt H ealth COMPREHENSIVE METABOLIC 2022-02-08 04:00:00 Jian Schmitt Health PANEL CBC (WITHOUT DIFFERENTIAL) 2022-02-08 04:00:00 Jian Schmitt [facility] COMPREHENSIVE METABOLIC 2022-02-08 04:00:00 Jian Schmitt Health PANEL PHOSPHORUS 2022-02-08 04:00:00 J[facility] MAGNESIUM 2022-02-08 04:00:00 Jian Schmitt [facility] PT/INR 2022-02-08 04:00:00 Jian Schmitt [facility] ELECTROLYTES, URINE 2022-02-07 18:06:00 Jyoti Carrillo [facility] OSMOLALITY, URINE 2022-02-07 18:06:00 Jyoti Carrillo [facility] ealt URINALYSIS W/REFLEX TO 2022-02-07 18:06:00 MicahAreli shields [facility] URINE CULTURE URINALYSIS 2022-02-07 18:06:00 Micahemilianawelia health Jazmineger Guadarrama Lynne alth URINE CULTURE COLLECTION 2022-02-07 18:06:00 [facility] KIT URINALYSIS W/REFLEX TO 2022-02-07 18:06:00 [facility] URINE CULTURE URINALYSIS 2022-02-07 18:06:00 Micahemilianaalyson Allynbrenda [facility] alth URINE CULTURE COLLECTION 2022-02-07 18:06:00 [facility] [place] KIT ELECTROLYTES, URINE 2022-02-07 18:06:00 Jyoti Carrillo [facility] OSMOLALITY, URINE 2022-02-07 18:06:00 Jyoti Carrillo [facility] CORONAVIRUS, COVID-19, OLENA 2022-02-07 18:05:00 Jyoti Carrillo [facility] SARS-COV-2, FLU A/B, RSV 2022-02-07 18:05:00 Jyoti Carrillo [facility] SARS-COV-2, FLU A/B, RSV 2022-02-07 18:05:00 Gerardo [facility] CORONAVIRUS, COVID-19, OLENA 2022-02-07 18:05:00 Jyoti Carrillo [facility] NUTRITION CONSULT 2022-02-07 17:43:36 Jian Schmitt [facility] ASSESSMENT NUTRITION CONSULT 2022-02-07 17:43:36 Jian Schmitt Health ASSESSMENT BASIC METABOLIC PANEL 2022-02-07 17:18:00 CarrilloJyoti dodd is Health BASIC METABOLIC PANEL 2022-02-07 17:18:00 Jyoti Carrillo is Health LACTIC ACID 2022-02-07 14:04:00 Jazmine Arciniegager Douglas [facility]th LACTIC ACID 2022-02-07 14:04:00 Jazmine Arciniegager Douglas alth BASIC METABOLIC PANEL 2022-02-07 14:03:00 Areli Arciniega [facility] CBC/DIFF 2022-02-07 14:03:00 Areli Arciniega Maged [facility] LIPASE 2022-02-07 14:03:00 Jazmine Arciniegager Douglas alth LIVER PROFILE 2022-02-07 14:03:00 Jazmine Arciniegager Douglas alth MAGNESIUM 2022-02-07 14:03:00 Jazmine Arciniegager Douglas alth PHOSPHORUS 2022-02-07 14:03:00 Jazmine Arciniegager Douglas alth TROPONIN I 2022-02-07 14:03:00 Jazmine Arciniegager Douglas alth CBC 2022-02-07 14:03:00 Jazmine Arciniegager [facility] CBC/DIFF 2022-02-07 14:03:00 Jazmine Arciniegager Douglas alth BASIC METABOLIC PANEL 2022-02-07 14:03:00 Areli Arciniega [facility] LIVER PROFILE 2022-02-07 14:03:00 Jazmine Arciniegager Douglas alth LIPASE 2022-02-07 14:03:00 Jazmine Arciniegager Douglas alth MAGNESIUM 2022-02-07 14:03:00 Jazmine Arciniegager Douglas alth PHOSPHORUS 2022-02-07 14:03:00 Jazmine Arciniegager Douglas alth TROPONIN I 2022-02-07 14:03:00 Suze Areli [facility] CBC 2022-02-07 14:03:00 Allyn Arciniegabrenda [facility] alth 12 LEAD EKG 2022-01-21 15:46:10 Ori Goldbergt h CBC/DIFF 2022-01-21 04:11:00 LindseyNoeh Esther [facility] MAGNESIUM 2022-01-21 04:11:00 LindseyNoeh P [facility] PHOSPHORUS 2022-01-21 04:11:00 Lindsey, Tien P [facility] BASIC METABOLIC PANEL 2022-01-21 04:11:00 Yusuf Con [facility] CBC 2022-01-21 04:11:00 LindseyNoeh P [facility] CBC/DIFF 2022-01-20 04:37:00 LindseyNoeh P [facility] MAGNESIUM 2022-01-20 04:37:00 [facility], Tien P [facility] PHOSPHORUS 2022-01-20 04:37:00 LindseyNoeh P [facility] BASIC METABOLIC PANEL 2022-01-20 04:37:00 LindseyTien P [facility] CBC 2022-01-20 04:37:00 LindseyNoeh P [facility] MAGNESIUM 2022-01-19 18:09:00 [facility] PHOSPHORUS 2022-01-19 18:09:00 [facility] Tien P [facility] BASIC METABOLIC PANEL 2022-01-19 18:09:00 [facility] CORTISOL, TOTAL 2022-01-19 18:09:00 Karin Bassett [facility] URINALYSIS W/REFLEX TO 2022-01-19 17:22:00 [facility] URINE CULTURE URINALYSIS 2022-01-19 17:22:00 [facility] URINE CULTURE COLLECTION 2022-01-19 17:22:00 Lindsey, Tien P [facility] KIT COMPUTED TOMOGRAPHY 2022-01-19 13:29:00 LindseyTien [facility] ABDOMEN AND PELVIS WITHOUT CONTRAST CBC/DIFF 2022-01-19 04:44:00 Tien Lucas P [facility] CBC 2022-01-19 04:44:00 LindseyNoeh P [facility] DIFFERENTIAL, MANUAL (NO 2022-01-19 04:44:00 LindseyNoeh P Momin r[facility] Health MORPHOLOGY)-[facility] BASIC METABOLIC PANEL 2022-01-18 17:15:00 LindseyTien P [facility] CBC/DIFF 2022-01-18 04:46:00 Tien Lucas [facility] MAGNESIUM 2022-01-18 04:46:00 Tien Lucas [facility] PHOSPHORUS 2022-01-18 04:46:00 Tien Lucas [facility] BASIC METABOLIC PANEL 2022-01-18 04:46:00 Ori Goldberg [facility] CBC 2022-01-18 04:46:00 Tien Lucas [facility] HIV AG/AB COMBO ROUTINE 2022-01-18 04:46:[address] [facility] SCREENING ENTERIC PATHOGENS NUCLEIC 2022-01-18 03:25:00 Karin Bassett [facility] ACID TEST BASIC METABOLIC PANEL 2022-01-18 00:29:00 Ori Goldberg [facility] BASIC METABOLIC PANEL 2022-01-17 17:07:00 [facility] PANEL 2022-01-17 13:15:00 LindseyTien [facility] CALPROTECTIN FECAL 2022-01-17 12:38:00 Tien Lucas ealth FECAL LEUKOCYTES 2022-01-17 12:38:00 Tien Lucas [facility] T-TRANSGLUTAMINASE IGA 2022-01-17 12:22:00 Tien Lucas P [facility] BASIC METABOLIC PANEL 2022-01-17 08:51:00 LindseyNoeh [facility] BASIC METABOLIC PANEL 2022-01-17 04:47:00 LindseyTien P [facility] CBC/DIFF 2022-01-17 04:47:00 Tien Lucas [facility] MAGNESIUM 2022-01-17 04:47:00 Tien Lucas [facility] PHOSPHORUS 2022-01-17 04:47:00 Tien Lucas [facility] CBC 2022-01-17 04:47:00 Tien Lucas [facility] BASIC METABOLIC PANEL 2022-01-17 00:08:00 Tien [facility] 12 LEAD EKG 2022-01-16 21:23:25 Noe Lucasgera Santana [facility] BASIC METABOLIC PANEL 2022-01-16 21:08:00 Tien [facility] XRAY CHEST 2 VIEWS 2022-01-16 19:56:00 LindseyTien [facility] ealth IP CONSULT TO PHYSICAL 2022-01-16 19:17:17 LindseyTien is Health THERAPY CONSULT CLINICAL CASE 2022-01-16 19:17:17 Tien Lucas s Health MANAGEMENT (RN/SW) SEQUENTIAL COMPRESSION 2022-01-16 19:17:17 LindseyTien is Health PUMP SEQUENTIAL COMPRESSION 2022-01-16 19:17:17 LindseyTien is Health PUMP SODIUM, URINE, RANDOM 2022-01-16 16:00:00 Nieves, Colin [facility] CREATININE, URINE, RANDOM 2022-01-16 16:00:00 NievesKevin barreto [facility] OSMOLALITY, URINE 2022-01-16 16:00:00 Nieves, Kevin [facility] SARS-COV-2, FLU A/B, RSV 2022-01-16 15:20:00 NievesKevin barreto [facility] CORONAVIRUS, COVID-19, OLENA 2022-01-16 15:20:00 Nieves, Colin [facility] FOLIC ACID 2022-01-16 14:13:00 Kevin Nieves [facility] CREATININE POC 2022-01-16 13:55:00 Raymon Martin [facility] h BMP POC 2022-01-16 13:46:00 Raymon Martint h CBC/DIFF 2022-01-16 12:12:00 Raymon Martint h CBC 2022-01-16 12:12:00 [facility] BASIC METABOLIC PANEL 2022-01-16 12:11:00 Sadiq Vargas is Health MAGNESIUM 2022-01-16 12:11:00 Sadiq Vargas [facility] VITAMIN B12 2022-01-16 12:11:00 Kevin Nieves [facility] ealth OSMOLALITY,SERUM 2022-01-16 12:11:00 Kevin Nieves [facility] INFUSION PUMP 2022-01-11 09:21:05 Helene Anderson [facility] GLUCOSE POC 2022-01-11 07:54:00 Helene Anderson [facility] BASIC METABOLIC PANEL 2022-01-11 04:07:00 Merissa Richards [facility] MAGNESIUM 2022-01-11 04:07:00 Merissa Richards [facility] PHOSPHORUS 2022-01-11 04:07:[address] [facility] h CBC/DIFF 2022-01-11 04:06:[address] [facility] h IRON PROFILE 2022-01-11 04:06:[address] [facility] h FOLIC ACID 2022-01-11 04:06:00 [facility] 2022-01-11 04:06:[address] [facility] h GLUCOSE POC 2022-01-10 18:16:00 Helene Anderson [facility] URINALYSIS 2022-01-10 16:10:[address] [facility] h URINALYSIS 2022-01-10 16:10:00 Merissa Richards [facility] SARS-COV-2, FLU A/B, RSV 2022-01-10 15:54:00 Merissa Richards [facility] CORONAVIRUS, COVID-19, OLENA 2022-01-10 15:54:00 Antoine Hester arris [facility] BASIC METABOLIC PANEL 2022-01-10 15:54:00 Merissa Richards [facility] VITAMIN B12 2022-01-10 15:54:00 [facility] VBG POC 2022-01-10 11:14:00 Dia Jewell [facility] CBC/DIFF 2022-01-10 11:13:00 Antoine Hester [facility] h BASIC METABOLIC PANEL 2022-01-10 11:13:00 Antoine Hester [facility] LACTIC ACID 2022-01-10 11:13:00 [facility] CBC 2022-01-10 11:13:00 Anto[facility] LIVER PROFILE 2022-01-10 11:13:[address] [facility] h CK, TOTAL 2022-01-10 11:13:00 Fercho Mer[facility]ims [facility] FERRITIN 2022-01-10 11:13:00 Merissa Richards [facility] CREATINE KINASE MB (CKMB) 2022-01-10 11:13:00 RichardsMerissa [facility] XRAY CHEST 2 VIEWS 2022-01-08 21:50:14 Tanja Sebastian [facility] CBC/DIFF 2022-01-08 21:27:00 Tanja Sebastian [facility] lt BASIC METABOLIC PANEL 2022-01-08 21:27:00 Tanja Sebastian [facility] LIVER PROFILE 2022-01-08 21:27:00 Tanja Sebastian [facility] lt CK, TOTAL 2022-01-08 21:27:00 Tanja Sebastian [facility] lt TROPONIN I 2022-01-08 21:27:00 Tanja Sebastian [facility] CBC 2022-01-08 21:27:00 Randa Sebastianandra Watson [facility] lt CREATINE KINASE MB (CKMB) 2022-01-08 21:27:00 Tanja Sebastian [facility] 12 LEAD EKG 2022-01-08 20:59:56 Tanja Sebastian [facility] lt COMP. METABOLIC PANEL 2021-09-14 03:41:00 Mickey Ramos [facility] ([id number]) [facility] CBC WITH DIFF 2021-09-14 03:41:00 Mickey Ramos [facility] CT HEAD WO CONTRAST 2021-09-12 14:10:00 Alona Carty [facility] TROPONIN I 2021-09-12 13:00:00 Odin [facility] BASIC METABOLIC PANEL (NA, 2021-09-12 13:00:00 Odin [facility] K, CL, CO2, GLUCOSE, BUN, Medica l Branch CREATININE, CA) CBC WITH DIFF 2021-09-12 13:00:00 Dalmedo, [facility] N-TERMINAL PRO-BNP 2021-09-12 13:00:00 [facility] 2021-09-09 05:30:00 Sebastian Pacheco [facility] COMP. METABOLIC PANEL 2021-09-09 05:30:[address] [facility] ([id number]) [facility] CBC WITH DIFF 2021-09-09 05:30:00 Sebastian Pacheco [facility] URINALYSIS 2021-09-08 04:45:00 Sebastian Pacheco [facility] CT ABDOMEN PELVIS W 2021-09-08 02:25:[address] [facility] CONTRAST [facility] LIPASE 2021-09-08 02:02:00 Sebastian Pacheoc [facility] COMP. METABOLIC PANEL 2021-09-08 02:02:[address] [facility] ([id number]) [facility] CBC WITH DIFF 2021-09-08 02:02:00 Sebastian Pacheco [facility] LACTIC ACID WHOLE BLOOD 2021-09-08 02:02:00 Sebastian Pacheco [facility] COVID-19 (ID NOW RAPID 2021-09-08 01:54:00 Sebastian Pacheco [facility] TESTING) [facility] BASIC METABOLIC PANEL (NA, 2021-09-04 12:30:00 Demario Godoy [facility] K, CL, CO2, GLUCOSE, BUN, Medica l Branch CREATININE, CA) BASIC METABOLIC PANEL (NA, 2021-09-04 12:30:00 Demario Godoy [facility] K, CL, CO2, GLUCOSE, BUN, Medica l Branch CREATININE, CA) SURGICAL PATHOLOGY EXAM 2021-09-03 14:01:00 Mayela [facility] COLOSTOMY REVISION 2021-09-03 12:58:00 Mayela [facility] COLOSTOMY REVISION 2021-09-03 12:58:00 Mayela [facility] BASIC METABOLIC PANEL (NA, 2021-09-03 11:26:00 Siddiqi, Cynthia [facility] K, CL, CO2, GLUCOSE, BUN, Medica l Branch CREATININE, CA) CBC WITHOUT DIFF 2021-09-03 11:26:00 Siddiqi, [facility] BASIC METABOLIC PANEL (NA, 2021-09-03 11:26:00 Siddiqi, Cynthia [facility] [facility] [employer] K, CL, CO2, GLUCOSE, BUN, Medica l Branch CREATININE, CA) CBC WITHOUT DIFF 2021-09-03 11:26:00 Siddiqi, [facility] TRANSTHORACIC ECHO (TTE) 2021-09-02 21:22:12 [facility]iq[facility], [facility]AST [facility] TRANSTHORACIC ECHO (TTE) 2021-09-02 21:22:12 Siddiqi, [facility]/ CONTRAST Medical [facility] COVID-19 (ID NOW RAPID 2021-09-02 19:35:00 Demario Godoy [facility] [place] TESTING) Medical Branch LAB ONLY COVID 2021-09-02 19:35:00 Demario Godoy [facility] INTERPRETATION Medical Branch COVID-19 (ID NOW RAPID 2021-09-02 19:35:00 Demario God[facility] TESTING) Medical Branch LAB ONLY COVID 2021-09-02 19:35:00 Demario Godoy [facility] INTERPRETATION [facility] BASIC METABOLIC PANEL (NA, 2021-09-02 [...] CREATININE, CA) BLOOD CULTURE SCREEN 2021-09-01 08:03:00 [facility] PANEL (NA, 2021-09-01 08:03:00 Siddiqi, [facility] K, CL, CO2, GLUCOSE, BUN, Medica l Branch CREATININE, CA) CBC WITH DIFF 2021-09-01 08:03:00 Siddiqi, [facility] BLOOD CULTURE SCREEN 2021-09-01 08:03:00 Chasity [facility] BASIC METABOLIC PANEL (NA, 2021-09-01 08:03:00 Siddiqi, [facility] K, CL, CO2, GLUCOSE, BUN, Medica l Branch CREATININE, CA) CBC WITH DIFF 2021-09-01 08:03:00 Neeru, [facility] MAGNESIUM 2021-09-01 02:09:00 [facility] PAN[facility] (NA, 2021-09-01 02:09:00 Roberto [facility] K, CL, CO2, GLUCOSE, BUN, Arpita Medica l Branch CREATININE, CA) MAGNESIUM 2021-09-01 02:09:00 [facility] BASIC METABOLIC PANEL (NA, 2021-09-01 02:09:00 Roberto [facility] K, CL, CO2, GLUCOSE, BUN, [facility] Medica l Branch CREATININE, CA) LACTIC ACID WHOLE BLOOD 2021-08-31 12:40:00 Siddiqi, [facility] LACTIC ACID WHOLE BLOOD 2021-08-31 12:40:00 Siddiqi, [facility] BASIC METABOLIC PANEL (NA, 2021-08-31 11:44:00 Chasity [facility] K, CL, CO2, GLUCOSE, BUN, Medica l Branch CREATININE, CA) BASIC METABOLIC PANEL (NA, 2021-08-31 11:44:00 Chasity [facility] K, CL, CO2, GLUCOSE, BUN, Medica l Branch CREATININE, CA) BASIC METABOLIC PANEL (NA, 2021-08-31 06:29:00 Chasity, [facility] K, CL, CO2, GLUCOSE, BUN, Medica l Branch CREATININE, CA) LACTIC ACID WHOLE BLOOD 2021-08-31 06:29:00 Chasity, [facility] BASIC METABOLIC PANEL (NA, 2021-08-31 06:29:00 Chasity, [facility] K, CL, CO2, GLUCOSE, BUN, [facility] CREATININE, CA) LACTIC ACID WHOLE BLOOD 2021-08-31 06:29:00 Chasity [facility] BLOOD CULTURE SCREEN 2021-08-31 06:28:00 Chasity [facility] BLOOD CULTURE WORKUP 2021-08-31 06:28:00 Chasity [facility] GRAM POSITIVE BLOOD 2021-08-31 06:28:[address] [facility] PATHOGENS DNA [facility] PROBE-AEROBIC BLOOD CULTURE SCREEN 2021-08-31 06:28:00 Chasity [facility] BLOOD CULTURE WORKUP 2021-08-31 06:28:00 Chasity [facility] GRAM POSITIVE BLOOD 2021-08-31 06:28:[address] [facility] PATHOGENS DNA [facility] PROBE-AEROBIC XR CHEST 2 VW 2021-08-31 03:08:00 [facility] X[facility] CHEST 2 VW 2021-08-31 03:08:00 Riccardo [facility] OSMOLALITY, SERUM OR 2021-08-31 02:44[facility] TROPONIN I 2021-08-31 02:44:00 Riccardo [facility] THYROID STIMULATING 2021-08-31 02:44:[address] [facility] HORMONE [facility] BASIC METABOLIC PANEL (NA, 2021-08-31 02:44:00 Riccardo [facility] K, CL, CO2, GLUCOSE, BUN, [facility] CREATININE, CA) OSMOLALITY, SERUM OR 2021-08-31 02:44:00 Chasity [facility] PLASMA [facility] TROPONIN I 2021-08-31 02:44:00 Riccardo [facility] THYROID STIMULATING 2021-08-31 02:44:[address] [facility] HORMONE [facility] BASIC METABOLIC PANEL (NA, 2021-08-31 02:44:00 Riccardo [facility] K, CL, CO2, GLUCOSE, BUN, [facility] CREATININE, CA) OSMOLALITY URINE 2021-08-31 00:08:00 Chasity [facility] URINALYSIS 2021-08-31 00:08:00 Riccardo [facility] SODIUM, URINE RANDOM 2021-08-31 00:08:00 Chasity [facility] CHLORIDE, URINE RANDOM 2021-08-31 00:08:00 Chasity [facility] OSMOLALITY URINE 2021-08-31 00:08:00 Chasity [facility] URINALYSIS 2021-08-31 00:08:00 Riccardo [facility] SODIUM, URINE RANDOM 2021-08-31 00:08:00 Chasity [facility] CHLORIDE, URINE RANDOM 2021-08-31 00:08:00 Chasity [facility] TROPONIN I 2021-08-30 23:27:00 Riccardo [facility] COMP. METABOLIC PANEL 2021-08-30 23:27:00 Riccardo [facility] ([id number]) [facility] CBC WITH DIFF 2021-08-30 23:27:00 Riccardo [facility] N-TERMINAL PRO-BNP 2021-08-30 23:27:00 Riccardo [facility] TROPONIN I 2021-08-30 23:27:00 Gayatri Gu [facility] COMP. METABOLIC PANEL 2021-08-30 23:27:00 [id number] CBC WITH DIFF 2021-08-30 23:27:00 Gayatri Gu [facility] N-TERMINAL PRO-BNP 2021-08-30 23:27:00 Gayatri Gu [facility] HB ECG ROUTINE & RHYTHM 2021-08-30 23:04:48 Gayatri Gu Un [facility] HB ECG ROUTINE & RHYTHM 2021-08-30 23:04:[address] [facility] XR CHEST 1 VW 2021-08-30 00:31:51 Alvarez Austin [facility] POCT RAPID STREP SCREEN 2021-08-30 00:24:00 Alvarez Austin [facility] FOR GROUP A [facility] GALV ONLY - INFLUENZA A B 2021-08-30 00:15:00 Alvarez Austin [facility] RSV PCR Medical Branch COVID-19 (MOLECULAR 2021-08-30 00:15:00 Alvarez Austin [facility] TESTING [facility] NUCLEIC ACID AMPLIFICATION) PREALBUMIN, SERUM 2021-08-05 10:46:00 Cesar [facility] PHOSPHORUS 2021-08-05 10:46:00 Cesar [facility] ALBUMIN 2021-08-05 10:46:00 Cesar [facility] MAGNESIUM 2021-08-05 10:46:00 Cesar [facility] BASIC METABOLIC PANEL (NA, 2021-08-05 10:46:00 Jessica Guerrero [facility] K, CL, CO2, GLUCOSE, BUN, Medica l Branch CREATININE, CA) CBC WITH DIFF 2021-08-05 10:46:00 Cesar [facility] COVID-19 (ID NOW RAPID 2021-08-05 00:29:[address] [facility] TESTING Medical Branch PHOSPHORUS 2021-08-04 11:37:00 Hakeem Jo [facility] MAGNESIUM 2021-08-04 11:37:00 Hakeem [facility] BASIC METABOLIC PANEL (NA, 2021-08-04 11:37:00 Hakeem Jo [facility] K, CL, CO2, GLUCOSE, BUN, [facility] CREATININE, CA) CBC WITH DIFF 2021-08-04 11:37:00 Hakeem Jo [facility] PHOSPHORUS 2021-08-03 10:36:00 Hakeem Jo [facility] MAGNESIUM 2021-08-03 10:36:00 Hakeem Jo [facility] BASIC METABOLIC PANEL (NA, 2021-08-03 10:36:00 Hakeem Jo [facility] K, CL, CO2, GLUCOSE, BUN, [facility] CREATININE, CA) CBC WITH DIFF 2021-08-03 10:36:00 Hakeem Jo [facility] PHOSPHORUS 2021-08-02 10:53:00 Hakeem Jo [facility] MAGNESIUM 2021-08-02 10:53:00 Hakeem Jo [facility] BASIC METABOLIC PANEL (NA, 2021-08-02 10:53:00 Hakeem Jo [facility] K, CL, CO2, GLUCOSE, BUN, [facility] CREATININE, CA) CBC WITH DIFF 2021-08-02 10:53:00 Hakeem Jo [facility] PHOSPHORUS 2021-08-01 10:03:00 Hakeem Jo [facility] MAGNESIUM 2021-08-01 10:03:00 Hakeem Jo [facility] BASIC METABOLIC PANEL (NA, 2021-08-01 10:03:00 Hakeem Jo [facility] K, CL, CO2, GLUCOSE, BUN, [facility] [place] CREATININE, CA) CBC WITH DIFF 2021-08-01 10:03:00 Hakeem Jo [facility] PREALBUMIN, SERUM 2021-07-31 10:22:00 Antonino Dietrich [facility] Leda, [place] [facility] PHOSPHORUS 2021-07-31 10:22:00 Hakeem [facility]ed with [facility] MAGNESIUM 2021-07-31 10:22:00 Hakeem [facility]Merged with [facility] BASIC METABOLIC PANEL (NA, 2021-07-31 10:22:00 Beau Benedict [facility] K, CL, CO2, GLUCOSE, BUN, [facility] CREATININE, CA) CBC WITH DIFF 2021-07-31 10:22:00 Hakeem [facility]ed with [facility] COVID-19 (ID NOW RAPID 2021-07-30 06:13:[address] [facility] TESTING) Medical Branch LAB ONLY COVID 2021-07-30 06:13:00 Jonah Rees [facility] INTERPRETATION [facility] CT ABDOMEN PELVIS W 2021-07-30 05:19:01 Jonah Rees [facility] CONTRAST [facility] COMP. METABOLIC PANEL 2021-07-30 03:25:00 Jonah Rees [facility] ([id number]) [facility] LACTIC ACID WHOLE BLOOD 2021-07-30 02:53:00 Jonah Rees [facility] Medical [place] LIPASE 2021-07-30 02:52:00 Jonah Rees [facility] CBC WITH DIFF 2021-07-30 02:52:00 Jonah Rees [facility] CONSENT/REFUSAL FOR 2021-07-30 02:09:09 Doctor Unassigned, [facility] DIAGNOSIS AND TREATMENT May Medical Branch PHOSPHORUS 2021-07-26 12:30:00 Antonino Dietrich [facility], [facility] MAGNESIUM 2021-07-26 12:30:00 Antonino Dietrich [facility], [facility] BASIC METABOLIC PANEL (NA, 2021-07-26 12:30:00 Antonino Karlo de [facility] [facility] K, CL, CO2, GLUCOSE, BUN, [facility], [facility] ical [facility] CREATININE, CA) CBC WITH DIFF 2021-07-26 12:30:00 [facility] h PHOSPHORUS 2021-07-25 11:32:00 Hakeem JoMerged with [facility] MAGNESIUM 2021-07-25 11:32:00 Hakeem JoMerged with [facility] BASIC METABOLIC PANEL (NA, 2021-07-25 11:32:00 Antonino Karlo de [facility] [facility] [place] K, CL, CO2, GLUCOSE, BUN, [facility], [facility] CREATININE, CA) CBC WITH DIFF 2021-07-25 11:32:00 Antonino jin [facility] CBC WITH DIFF 2021-07-25 04:13:00 [facility] 2021-07-24 12:18:00 Cesar, [facility] MAGNESIUM 2021-07-24 12:18:00 [facility] BASIC METABOLIC PANEL (NA, 2021-07-24 12:18:00 Cesar, Adil [facility] [facility] [place] K, CL, CO2, GLUCOSE, BUN, Medica l Branch CREATININE, CA) COVID-19 (ID NOW RAPID 2021-07-23 15:23:[address] [facility] TESTING) Medical Branch LAB ONLY COVID 2021-07-23 15:23:00 [facility] URINALYSIS 2021-07-23 12:49:00 Hakeem JoMerged with [facility] PHOSPHORUS 2021-07-23 12:42:00 Hakeem Jo [facility] MAGNESIUM 2021-07-23 12:42:00 Hakeem [facility]Merged with [facility] BASIC METABOLIC PANEL (NA, 2021-07-23 12:42:00 Beau Benedict [facility] K, CL, CO2, GLUCOSE, BUN, [facility] CREATININE, CA) CBC WITH DIFF 2021-07-23 12:42:00 Hakeem Jo [facility] CT ABDOMEN PELVIS WO 2021-07-23 08:55:17 Flaco Lemus [facility] EXTERNAL PROVIDER RECORDS 2021-06-25 05:01:00 Doctor Unassigned, [facility] May [facility] BASIC METABOLIC PANEL (NA, 2021-06-03 10:37:00 Shweta Anderson [facility] K, CL, CO2, GLUCOSE, BUN, Medica l Branch CREATININE, CA) BASIC METABOLIC PANEL (NA, 2021-06-02 10:54:00 Shweta Anderson [facility] K, CL, CO2, GLUCOSE, BUN, Medica l Branch CREATININE, CA) CLOSTRIDIUM DIFFICILE 2021-06-01 22:51:00 [facility] FECAL PATHOGENS BY PCR 2021-06-01 22:51:00 Ad[facility]toWilfrid [facility] BASIC METABOLIC PANEL (NA, 2021-06-01 15:42:00 Shweta Anderson [facility] K, CL, CO2, GLUCOSE, BUN, Medica l Branch CREATININE, CA) LACTIC ACID WHOLE BLOOD 2021-06-01 05:38:00 Clementine Castellon [facility] CT ABDOMEN PELVIS W 2021-05-31 23:25:45 Willie Garrett [facility] Branch LIPASE 2021-05-31 22:44:00 Willie Garrett [facility] TROPONIN I 2021-05-31 22:44:00 Willie Garrett [facility] COMP. METABOLIC PANEL 2021-05-31 22:44:00 Willie Garrett [facility] ([id number]) Medical [place] CBC WITH DIFF 2021-05-31 22:44:00 Willie Garrett [facility] COVID-19 (ID NOW RAPID 2021-05-31 22:44:[address] [facility] TESTING) Medical Branch LAB ONLY COVID 2021-05-31 22:44:00 Willie Garrett [facility] INTERPRETATION Medical Branch PHOSPHORUS 2021-05-21 09:03:00 Cesar [facility] MAGNESIUM 2021-05-21 09:03:00 Cesar [facility] BASIC METABOLIC PANEL (NA, 2021-05-21 09:03:00 Agatha Noonan [facility] K, CL, CO2, GLUCOSE, BUN, Medica l [place] CREATININE, CA) CBC WITH DIFF 2021-05-21 09:03:00 Shaista Agatha [facility] XR KUB 2021-05-20 20:02:49 Andrzej [facility] LIPASE 2021-05-20 20:00:00 Andrzej [facility] COMP. METABOLIC PANEL 2021-05-20 20:00:00 Bernardo Donnelly [facility] ([id number]) [facility] CBC WITH DIFF 2021-05-20 20:00:00 Andrzej [facility] LACTIC ACID WHOLE BLOOD 2021-05-20 20:00:00 Andrzej [facility] COVID-19 (ID NOW RAPID 2021-05-20 20:00:00 Andrzej [facility] TESTING) Medical Branch BASIC METABOLIC PANEL (NA, 2021-05-08 10:04:00 Abu Geno [facility] K, CL, CO2, GLUCOSE, BUN, Medica l [place] CREATININE, CA) CBC WITH DIFF 2021-05-08 10:04:00 Abu Geno [facility] XR KUB 2021-05-08 09:44:22 Beto [facility] XR ABDOMEN 1 VW 2021-05-08 05:32:36 Abu Geno [facility] CT ABDOMEN PELVIS W 2021-05-08 01:08:43 Beto [facility] CONTRAST [facility] HEPATIC FUNCTION PANEL 2021-05-08 00:49:00 Beto [facility] ([id number]) (ALB,T.PRO,BILI Medical Branch T,BU/BC,ALT,AST,ALK PHOS) BASIC METABOLIC PANEL (NA, 2021-05-08 00:49:00 Alona Pérez [facility] K, CL, CO2, GLUCOSE, BUN, Medica l Branch CREATININE, CA) CBC WITH DIFF 2021-05-08 00:49:00 Beto [facility] Branch COVID-19 (ID NOW RAPID 2021-05-08 00:42:00 Beto [facility] TESTING) Medical Branch LAB ONLY COVID 2021-05-08 00:42:00 Beto [facility] INTERPRETATION [facility] NOTICE OF PRIVACY 2020-09-27 01:47:31 Doctor Unassigned, [facility] PRACTICES May Medical [place] CONSENT/REFUSAL FOR 2020-09-27 01:47:01 Doctor Unassigned, [facility] DIAGNOSIS AND TREATMENT May [facility] BASIC METABOLIC PANEL (NA, 2020-08-23 10:03:00 Judith Ingram [facility] K, CL, CO2, GLUCOSE, BUN, Medica l [place] CREATININE, CA) CBC WITHOUT DIFF 2020-08-23 10:03:00 Judith Ingram [facility] COVID-19 (ID NOW RAPID 2020-08-23 00:23:00 Funmilayo Pinzon [facility] TESTING) Medical Branch HB ECG ROUTINE & RHYTHM 2020-08-22 22:19:37 Funmilayo Pinzon [facility] STRIP Medical Branch HEPATIC FUNCTION PANEL 2020-08-22 22:08:00 Funmilayo Pinzon [facility] ([id number]) (ALB,T.PRO,BILI Medical Branch T,BU/BC,ALT,AST,ALK PHOS) BASIC METABOLIC PANEL (NA, 2020-08-22 22:08:00 Nallely Pinzon [facility] K, CL, CO2, GLUCOSE, BUN, Medica l Branch CREATININE, CA) CBC WITH DIFF 2020-08-22 22:08:00 Funmilayo Pinzon [facility] CT SOFT TISSUE NECK W 2020-07-10 00:21:10 Juan M Aguillon [facility] CONTRAST Medical Branch URINALYSIS 2020-07-09 23:07:00 Juan M Aguillon [facility] BASIC METABOLIC PANEL (NA, 2020-07-09 22:51:00 Kirk Aguillon [facility] K, CL, CO2, GLUCOSE, BUN, Medica l Branch CREATININE, CA) CBC WITH DIFF 2020-07-09 22:51:00 Juan M Aguillon [facility] RAPID STREP SCREEN FOR 2020-07-09 22:51:00 Juan M Aguillon [facility] GROUP A Medical Branch COVID-19 (ID NOW RAPID 2020-07-09 22:51:00 Henna [facility] TESTING) Medical Branch CT ABDOMEN PELVIS W 2020-06-05 13:02:55 Travis Valdez [facility] CONTRAST [facility] URINALYSIS 2020-06-05 13:02:00 More Goetz [facility] EKG-12 LEAD 2020-06-05 11:57:46 More Goetz [facility] LIPASE 2020-06-05 11:57:00 More Goetz [facility] TROPONIN I 2020-06-05 11:57:00 More Goetz [facility] HEPATIC FUNCTION PANEL 2020-06-05 11:57:00 More Goetz [facility] ([id number]) (ALB,T.PRO,BILI [facility] T,BU/BC,ALT,AST,ALK PHOS) BASIC METABOLIC PANEL (NA, 2020-06-05 11:57:00 More Goetz [facility] K, CL, CO2, GLUCOSE, BUN, Medica l Branch CREATININE, CA) CBC WITH DIFF 2020-06-05 11:57:00 More Goetz [facility] LACTIC ACID WHOLE BLOOD 2020-06-05 11:57:00 More Goetz [facility] 2020-05-31 07:54:00 Katia Gomez [facility] MAGNESIUM 2020-05-31 07:54:00 Patricia Katiakendell Flores [facility] BASIC METABOLIC PANEL (NA, 2020-05-31 07:54:00 Katia Gomez ya [employer] [place] K, CL, CO2, GLUCOSE, BUN, Medica l Branch CREATININE, CA) CBC WITH DIFF 2020-05-31 07:54:00 Katia Gomez [facility] IR CHANGE OF ABSCESS DRAIN 2020-05-30 19:33:43 Ashwin [facility] 2020-05-30 08:19:00 Lambreton Gonzales, [facility] MAGNESIUM 2020-05-30 08:19:00 Lambreton Gonzales, [facility] BASIC METABOLIC PANEL (NA, 2020-05-30 08:19:00 Lambreton Carlos a[facility] [employer] [place] K, CL, CO2, GLUCOSE, BUN, [facility] CREATININE, CA) PHOSPHORUS 2020-05-29 06:43:00 Lambreton Gonzales, [facility] MAGNESIUM 2020-05-29 06:43:00 Lambreton Gonzales, [facility] BASIC METABOLIC PANEL (NA, 2020-05-29 06:43:00 Lambreton Carlos a, [employer] [place] K, CL, CO2, GLUCOSE, BUN, [facility] CREATININE, CA) PHOSPHORUS 2020-05-28 09:08:00 Lambreton Gonzales, [facility] MAGNESIUM 2020-05-28 09:08:00 Lambreton Gonzales, [facility] BASIC METABOLIC PANEL (NA, 2020-05-28 09:08:00 Lambreton Carlos a, [employer] [place] K, CL, CO2, GLUCOSE, BUN, [facility] CREATININE, CA) PHOSPHORUS 2020-05-27 09:33:00 Lambreton Gonzales, [facility] MAGNESIUM 2020-05-27 09:33:00 Lambreton Gonzales, [facility] BASIC METABOLIC PANEL (NA, 2020-05-27 09:33:00 Lambreton Carlos a, [employer] [place] K, CL, CO2, GLUCOSE, BUN, [facility] CREATININE, CA) PHOSPHORUS 2020-05-26 09:27:00 Lambreton Gonzalse, [facility] MAGNESIUM 2020-05-26 09:27:00 Lambreton Gonzales, [facility] BASIC METABOLIC PANEL (NA, 2020-05-26 09:27:00 Lambreton Carlos a, [employer] [place] K, CL, CO2, GLUCOSE, BUN, [facility] CREATININE, CA) PHOSPHORUS 2020-05-25 21:42:00 Lambreton Gonzales, [facility] MAGNESIUM 2020-05-25 21:42:00 Lambreton Gonzales, [facility] BASIC METABOLIC PANEL (NA, 2020-05-25 21:42:00 Lambreton Carlos a, [facility] K, CL, CO2, GLUCOSE, BUN, [facility] CREATININE, CA) CBC WITH DIFF 2020-05-25 21:42:00 Lambreton Gonzales, [facility] XR KUB 2020-05-25 20:39:54 Lambreton Gonzales, [facility] PHOSPHORUS 2020-05-25 08:48:00 Lambreton Gonzales, [facility] MAGNESIUM 2020-05-25 08:48:00 Lambreton Gonzales, [facility] BASIC METABOLIC PANEL (NA, 2020-05-25 08:48:00 Lambreton Carlos a, [employer] [place] K, CL, CO2, GLUCOSE, BUN, [facility] CREATININE, CA) PHOSPHORUS 2020-05-24 20:41:00 Lambreton Gonzales, [facility] MAGNESIUM 2020-05-24 20:41:00 Lambreton Gonzales, [facility] BASIC METABOLIC PANEL (NA, 2020-05-24 20:41:00 Lambreton Carlos a, [employer] [place] K, CL, CO2, GLUCOSE, BUN, [facility] CREATININE, CA) IR CHANGE OF ABSCESS DRAIN 2020-05-24 17:57:11 Vance Stafford U [facility] IR ASPIRATION ABSCESS 2020-05-24 17:24:40 [facility] CYST BY NEEDLE Medical [place] ASPIRATE OR ABSCESS 2020-05-24 17:23:[address] [facility] CULTURE(AEROBIC/ANAEROBIC) Medic al Branch CBC WITH DIFF 2020-05-24 11:08:[address] [facility] Anahi Medical [facility] CT ABDOMEN PELVIS W 2020-05-23 15:02:24 Randa [facility] CONTRAST Medical Branch BASIC METABOLIC PANEL (NA, 2020-05-23 09:45:00 [facility], CL, CO2, GLUCOSE, BUN, [facility]ica [facility] CREATININE, CA) COVID-19 (PCR MOLECULAR 2020-05-23 06:53:00 Mayela [facility] TESTING) Medical Branch URINALYSIS 2020-05-22 21:41:00 Lopez, Vtgeri [facility] LIPASE 2020-05-22 21:26:00 [facility] 2020-05-22 21:26:00 Lopez, Vtgeri [facility] ([id number]) (ALB,T.PRO,BILI Medical Branch T,BU/BC,ALT,AST,ALK PHOS) BASIC METABOLIC PANEL (NA, 2020-05-22 21:26:00 Alex Lopez [facility] K, CL, CO2, GLUCOSE, BUN, Medica l Branch CREATININE, CA) CBC WITH DIFF 2020-05-22 21:26:00 Lopez, [facility] PROTHROMBIN TIME / INR 2020-05-22 21:26:00 Alex Lopez [facility] ACTIVATED PARTIAL THRMPLAS 2020-05-22 21:26:00 Alex Lopez [facility] SELENA [facility] XR CHEST 1 VW 2020-05-22 20:55:00 Colette Vtgeri [facility] HOSPITAL ADMISSION 2020-05-22 05:01:00 Doctor Unassigned, [facility] May Medical Branch URINALYSIS 2020-05-20 09:58:00 Jonah Rodriguez [facility] COVID-19 (ID NOW RAPID 2020-05-20 09:48:00 Jonah Rodriguez [facility] TESTING) [facility] CT ABDOMEN PELVIS W 2020-05-20 04:07:[address] [facility] CONTRAST Medical Branch LIPASE 2020-05-20 03:09:00 Jonah Rodriguez [facility] MAGNESIUM 2020-05-20 03:09:00 Jonah Rodriguez [facility] TROPONIN I 2020-05-20 03:09:00 Michael [facility] COMP. METABOLIC PANEL 2020-05-20 03:09:00 Jonah Rodriguez [facility] ([id number]) [facility] CBC WITH DIFF 2020-05-20 03:09:00 Michael [facility] PHOSPHORUS 2020-05-10 09:13:00 Randa [facility] MAGNESIUM 2020-05-10 09:13[facility] MET[facility]OLIC PANEL (NA, 2020-05-10 09:13:00 Randa, [facility] K, CL, CO2, GLUCOSE, BUN, Medica l Branch CREATININE, CA) CBC WITH DIFF 2020-05-10 09:13:00 Randa [facility] PHOSPHORUS 2020-05-09 10:28:00 Randa [facility] MAGNESIUM 2020-05-09 10:28:00 [facility] BASIC METABOLIC PANEL (NA, 2020-05-09 10:28:00 Randa [facility] K, CL, CO2, GLUCOSE, BUN, Medica l Branch CREATININE, CA) CBC WITH DIFF 2020-05-09 10:28:00 Randa [facility] PHOSPHORUS 2020-05-08 11:18:00 [facility] 2020-05-08 11:18:00 [facility] BASIC METABOLIC PANEL (NA, 2020-05-08 11:18:00 Randa [facility] K, CL, CO2, GLUCOSE, BUN, Medica l Branch CREATININE, CA) CBC WITH DIFF 2020-05-08 11:18:00 Randa [facility] PHOSPHORUS 2020-05-07 09:21:00 [facility]UM 2020-05-07 09:21:00 [facility] BASIC METABOLIC PANEL (NA, 2020-05-07 09:21:00 [facility] K, CL, CO2, GLUCOSE, BUN, Medica l Branch CREATININE, CA) CBC WITH DIFF 2020-05-07 09:21:00 [facility] PHOSPHORUS 2020-05-06 09:57:00 [facility] MAGNESIUM 2020-05-06 09:57:00 [facility] BASIC METABOLIC PANEL (NA, 2020-05-06 09:57:00 [facility] K, CL, CO2, GLUCOSE, BUN, [facility] CREAT[facility], [facility]) CBC WITH DIFF 2020-05-06 09:56:00 [facility] IR DRAINAGE BY CATHETER 2020-05-05 19:55:00 [facility] PERITONEAL OR Medical [place] RETROPERITONEAL BODY FLUID 2020-05-05 19:06:00 Nixon [facility] CULTURE(AEROBIC/ANAEROBIC) [facility] FUNGUS (ROUTINE) CULTURE 2020-05-05 19:06:00 Nixon Prince [facility] BODY FLUID 2020-05-05 19:00:00 Ivan Guthrie [facility] CULTURE(AEROBIC/ANAEROBIC) [facility] FUNGUS (ROUTINE) CULTURE 2020-05-05 19:00:00 Ivan Guthrie [facility] PREPARE PACKED RBC 2020-05-05 15:59:33 Hakeem Jo [facility] HB ABO GROUPING 2020-05-05 10:55:00 Hakeem Jo [facility] PREALBUMIN, SERUM 2020-05-05 08:56:[address] [facility] PHOSPHORUS 2020-05-05 08:56:00 [facility] MAGNESIUM 2020-05-05 08:56:00 [facility] BASIC METABOLIC PANEL (NA, 2020-05-05 08:56:00 Randa [facility] K, CL, CO2, GLUCOSE, BUN, Medica l Branch CREATININE, CA) CBC WITH DIFF 2020-05-05 08:56:00 [facility] URINALYSIS 2020-05-05 05:11:00 Lora Hall [facility] CT ABDOMEN PELVIS W 2020-05-05 04:18:56 Lora Hall [facility] versity [facility] CONTRAST [facility] LIPASE 2020-05-05 02:35:00 Lora Hall [facility] COMP. METABOLIC PANEL 2020-05-05 02:35:00 Lora Hall [facility] ([id number]) [facility] CBC WITH DIFF 2020-05-05 02:35:00 Lora Hall [facility] COVID-19 (ID NOW RAPID 2020-05-05 02:27:00 Lora Hall [facility] TESTING) Medical Branch HOSPITAL ADMISSION 2020-05-04 05:01:00 Doctor Unassigned, [facility] May Medical Branch CBC WITH DIFF 2020-05-01 11:32:00 [facility] PHOSPHORUS 2020-05-01 11:32:00 [facility] 2020-05-01 11:32:00 [facility] BASIC METABOLIC PANEL (NA, 2020-05-01 11:32:00 Randa [facility] K, CL, CO2, GLUCOSE, BUN, Medica l Branch CREATININE, CA) CBC WITH DIFF 2020-04-29 11:31:00 [facility] PHOSPHORUS 2020-04-29 11:31:00 [facility] 2020-04-29 11:31:00 [facility] BASIC METABOLIC PANEL (NA, 2020-04-29 11:31:00 Randa [facility] K, CL, CO2, GLUCOSE, BUN, Medica l Branch CREATININE, CA) CBC WITH DIFF 2020-04-28 08:51:00 Becky, [facility] MAGNESIUM 2020-04-28 08:51:00 Becky, [facility] BASIC METABOLIC PANEL (NA, 2020-04-28 08:51:00 Becky, [facility] K, CL, CO2, GLUCOSE, BUN, Cath[facility]ica [facility] CREATININE, CA) CBC WITH DIFF 2020-04-27 09:34:00 Becky, [facility] MAGNESIUM 2020-04-27 09:34:00 Becky, [facility] BASIC METABOLIC PANEL (NA, 2020-04-27 09:34:00 Becky, [facility] K, CL, CO2, GLUCOSE, BUN, [facility] CREATININE, CA) CBC WITH DIFF 2020-04-26 09:27:00 Becky, [facility] MAGNESIUM 2020-04-26 09:27:00 Becky, [facility] BASIC METABOLIC PANEL (NA, 2020-04-26 09:27:00 Becky, [facility] K, CL, CO2, GLUCOSE, BUN, [facility] CREATININE, CA) CBC WITH DIFF 2020-04-25 08:59:00 Becky, [facility] MAGNESIUM 2020-04-25 08:59:00 Becky, [facility] BASIC METABOLIC PANEL (NA, 2020-04-25 08:59:00 Becky, [facility] K, CL, CO2, GLUCOSE, BUN, [facility] CREATININE, CA) CBC WITH DIFF 2020-04-24 09:44:00 Becky, [facility] MAGNESIUM 2020-04-24 09:44:00 Becky, [facility] BASIC METABOLIC PANEL (NA, 2020-04-24 09:44:00 Becky, [facility] K, CL, CO2, GLUCOSE, BUN, [facility] CREATININE, CA) CT ABDOMEN PELVIS W 2020-04-23 23:24:02 Grant Cheema, [facility] CONTRAST [facility] CT THORAX W CONTRAST 2020-04-23 23:24:02 Grant Cheema, [facility] COVID-19 (ID NOW RAPID 2020-04-23 15:06:00 Grant Cheema, [facility] TESTING) [facility] PREALBUMIN, SERUM 2020-04-23 13:42:00 Grant Cheema, [facility] POTASSIUM SERUM 2020-04-23 13:42:00 Becky [facility] CBC WITH DIFF 2020-04-23 10:17:00 Becky [facility] MAGNESIUM 2020-04-23 10:17:00 Becky [facility] BASIC METABOLIC PANEL (NA, 2020-04-23 10:17:00 Becky [facility] K, CL, CO2, GLUCOSE, BUN, [facility] CREATININE, CA) XR CHEST 1 VW 2020-04-23 10:03:00 Becky [facility] MAGNESIUM 2020-04-22 10:37:00 Becky, [facility] BASIC METABOLIC PANEL (NA, 2020-04-22 10:37:00 Becky, [facility] K, CL, CO2, GLUCOSE, BUN, [facility] CREATININE, CA) CBC WITH DIFF 2020-04-22 10:30:00 Becky [facility] XR CHEST 1 VW 2020-04-22 07:30:00 Becky [facility] CBC WITH DIFF 2020-04-21 13:09:00 Becky, [facility] MAGNESIUM 2020-04-21 13:09:00 Becky, [facility] BASIC METABOLIC PANEL (NA, 2020-04-21 13:09:00 Becky, [facility] K, CL, CO2, GLUCOSE, BUN, [facility] CREATININE, CA) XR CHEST 1 VW 2020-04-21 06:41:00 Grant Cheema [facility] XR CHEST 1 2020-04-20 11:03:41 Grant Cheema [facility] CBC WITH DIFF 2020-04-20 09:45:00 Katrina [facility] PREALBUMIN, SERUM 2020-04-20 09:45:00 Grant Cheema [facility] PHOSPHORUS 2020-04-20 09:45:00 Carola [facility] MAGNESIUM 2020-04-20 09:45:00 Katrina [facility] BASIC METABOLIC PANEL (NA, 2020-04-20 09:45:00 Yosvany Herndon [facility] K, CL, CO2, GLUCOSE, BUN, Medica l Branch CREATININE, CA) XR CHEST 1 2020-04-19 10:13:45 Rosaura Pena [facility] CBC WITH DIFF 2020-04-19 10:10:00 Katrina [facility] PHOSPHORUS 2020-04-19 10:10:00 Carola [facility] MAGNESIUM 2020-04-19 10:10:00 Katrina [facility] BASIC METABOLIC PANEL (NA, 2020-04-19 10:10:00 Yosvany Herndon [facility] [place] K, CL, CO2, GLUCOSE, BUN, Medica l Branch CREATININE, CA) XR CHEST 1 2020-04-18 11:01:00 Rosaura Pena [facility] CBC WITH DIFF 2020-04-18 10:19:00 Katrina [facility] PHOSPHORUS 2020-04-18 10:19:00 Carola [facility] MAGNESIUM 2020-04-18 10:19:00 Katrina [facility] BASIC METABOLIC PANEL (NA, 2020-04-18 10:19:00 Yosvany Herndon [facility] [place] K, CL, CO2, GLUCOSE, BUN, Medica l Branch CREATININE, CA) XR CHEST 1 2020-04-17 18:58:00 Rosaura Pena [facility] CBC WITH DIFF 2020-04-17 09:33:00 Katrina [facility] PHOSPHORUS 2020-04-17 09:33:00 Carola [facility] MAGNESIUM 2020-04-17 09:33:00 Katrina [facility] BASIC METABOLIC PANEL (NA, 2020-04-17 09:33:00 [facility], [facility], CO2, GLUCOSE, BUN, [facility] CREAT[facility], CA) XR CHEST 1 VW 2020-04-17 08:52:00 Grant Cheema [facility] XR CHEST 1 2020-04-16 23:45:00 [facility] BODY FLUID 2020-04-16 21:50:00 Rivera [facility] CULTURE(AEROBIC/ANAEROBIC) [facility] FUNGUS (ROUTINE) CULTURE 2020-04-16 21:50:00 Vance Stafford [facility] CYTO PLEURAL FLUID 2020-04-16 21:50:00 Rivera [facility] LDH TOTAL BODY FLUID 2020-04-16 21:50:00 Rivera Vance [facility] AMYLASE BODY FLUID 2020-04-16 21:50:00 Rivera [facility] GLUCOSE BODY FLUID 2020-04-16 21:50:00 Rivera [facility] PH, BODY FLUID 2020-04-16 21:50:00 [facility] T.PROTEIN BODY FLUID 2020-04-16 21:50:00 Rivera [facility] BODY FLUID DIRECT COUNT 2020-04-16 21:50:00 Rivera [facility] IR PLEURAL DRAINAGE WITH 2020-04-16 21:36:25 Rosaura Pena [facility] TUBE WITH IMAGING [facility] PROTHROMBIN TIME / INR 2020-04-16 16:07:00 Rosaura Pena [facility] CBC WITH DIFF 2020-04-16 10:07:00 Katrina [facility] PHOSPHORUS 2020-04-16 10:07:00 Carola [facility] MAGNESIUM 2020-04-16 10:07:00 Katrina [facility] BASIC METABOLIC PANEL (NA, 2020-04-16 10:07:00 Yosvany Herndon [facility] K, CL, CO2, GLUCOSE, BUN, Medica l Branch CREATININE, CA) CT ABDOMEN PELVIS W 2020-04-16 07:02:21 Grant Cheema [facility] CONTRAST [facility] CBC WITH DIFF 2020-04-15 10:02:00 Katrina [facility] PHOSPHORUS 2020-04-15 10:02:00 Carola [facility] MAGNESIUM 2020-04-15 10:02:00 Katrina [facility] BASIC METABOLIC PANEL (NA, 2020-04-15 10:02:00 Yosvany Herndon [facility] K, CL, CO2, GLUCOSE, BUN, Medica l Branch CREATININE, CA) CBC WITH DIFF 2020-04-14 10:26:00 Katrina [facility] PHOSPHORUS 2020-04-14 10:26:00 Carola [facility] MAGNESIUM 2020-04-14 10:26:00 Katrina [facility] BASIC METABOLIC PANEL (NA, 2020-04-14 10:26:00 Yosvany Herndon [facility] K, CL, CO2, GLUCOSE, BUN, Medica l Branch CREATININE, CA) BASIC METABOLIC PANEL (NA, 2020-04-13 23:53:00 Grant Santana i, [facility] K, CL, CO2, GLUCOSE, BUN, Danny Medica l Branch CREATININE, CA) CBC WITHOUT DIFF 2020-04-13 23:53:00 Grant Cheema [facility] IR DRAINAGE BY CATHETER 2020-04-13 20:35:08 [facility] OR [facility] RETROPERITONEAL BODY FLUID 2020-04-13 20:05:00 Neris Grier [facility] CULTURE(AEROBIC/ANAEROBIC) Medic al [facility] L[facility] TOTAL BODY FLUID 2020-04-13 20:05:00 Grant Cheema, [facility] GLUCOSE BODY FLUID 2020-04-13 20:05:00 [facility] T.PROTEIN BODY FLUID 2020-04-13 20:05:00 Grant Cheema, [facility] BODY FLUID DIRECT COUNT 2020-04-13 20:05:00 Grant Cheema, [facility] CBC WITH DIFF 2020-04-13 10:44:00 Katrina [facility] PHOSPHORUS 2020-04-13 10:44:00 Carola [facility] MAGNESIUM 2020-04-13 10:44:[address] [facility] BASIC METABOLIC PANEL (NA, 2020-04-13 10:44:00 Yosvany Herndon [facility] K, CL, CO2, GLUCOSE, BUN, [facility] CREATININE, CA) CT ABDOMEN PELVIS W 2020-04-12 21:23:19 Grant Cheema [facility] URINALYSIS 2020-04-12 20:43:00 Rosaura Pena [facility] URINE CULTURE 2020-04-12 20:43:00 [facility] 2020-04-12 18:51:00 Ros[facility] GRAM NEGATIVE BLOOD 2020-04-12 18:51:00 Rosaura Pena [facility] PATHOGENS DNA [facility] PROBE-ANAEROBIC BLOOD CULTURE SCREEN 2020-04-12 18:51:00 Rosaura [facility] BLOOD CULTURE SCREEN 2020-04-12 18:50:00 Rosaura [facility]ena [facility] CBC WITH DIFF 2020-04-12 08:46:00 Katrina [facility] PHOSPHORUS 2020-04-12 08:46:00 Carola [facility] MAGNESIUM 2020-04-12 08:46:00 Katrina [facility] BASIC METABOLIC PANEL (NA, 2020-04-12 08:46:00 Yosvany Herndon [facility] K, CL, CO2, GLUCOSE, BUN, Medica l Branch CREATININE, CA) CBC WITH DIFF 2020-04-11 08:54:00 Katrina [facility] PHOSPHORUS 2020-04-11 08:54:00 Carola [facility] MAGNESIUM 2020-04-11 08:54:[address] [facility] BASIC METABOLIC PANEL (NA, 2020-04-11 08:54:00 Katrina [facility] K, CL, CO2, GLUCOSE, BUN, Medica l Branch CREATININE, CA) CBC WITH DIFF 2020-04-10 09:49:00 Katrina [facility] PHOSPHORUS 2020-04-10 09:49:00 Carola [facility] MAGNESIUM 2020-04-10 09:49:[address] [facility] XR CHEST 1 VW 2020-04-09 11:27:00 Grant Cheema [facility] CBC WITH DIFF 2020-04-09 09:07:00 Katrina [facility] PHOSPHORUS 2020-04-09 09:07:00 Carola [facility] MAGNESIUM 2020-04-09 09:07:00 Katrina [facility] HEPATIC FUNCTION PANEL 2020-04-09 09:07:00 Grant Cheema [facility] ([id number]) (ALB,T.PRO,[facility] T,BU/BC,ALT,AST,ALK PHOS) BASIC METABOLIC PANEL (NA, 2020-04-09 09:07:00 Yosvany Herndon [facility] K, CL, CO2, GLUCOSE, BUN, Medica l Branch CREATININE, CA) AC PANEL 20 + LACTIC ACID 2020-04-08 21:11:00 Yosvany Herndon [facility] POCT GLUCOSE (AUTOMATED) 2020-04-08 12:27:00 Bia Pedro [facility] AC PANEL 21 + LACTIC ACID 2020-04-08 09:34:00 [facility] [place] PO[facility]SE (AUTOMATED) 2020-04-08 09:33:00 Bia Pedro [facility] CBC WITH DIFF 2020-04-08 09:26:00 Katrina [facility] MAGNESIUM 2020-04-08 09:26:00 Katrina [facility] BASIC METABOLIC PANEL (NA, 2020-04-08 09:26:00 [facility], CL, CO2, GLUCOSE, BUN, Medica l Branch CREATININE, CA) POCT GLUCOSE (AUTOMATED) 2020-04-08 04:24:00 Bia Pedro [facility] POCT GLUCOSE (AUTOMATED) 2020-04-08 00:36:00 Bia Pedro [facility] POCT GLUCOSE (AUTOMATED) 2020-04-07 21:24:00 Bia Pedro [facility] POCT GLUCOSE (AUTOMATED) 2020-04-07 16:49:00 Bia Pedro [facility] AC PANEL 20 + LACTIC ACID 2020-04-07 14:14:00 [facility] WHOLE [facility]LO[facility] 2020-04-07 13:53:00 [facility] ([facility]OMATED) 2020-04-07 12:50:00 Bia Pedro [facility] AC PANEL 20 + LACTIC ACID 2020-04-07 11:16:00 [facility] Herndon [facility] MAGNESIUM 2020-04-07 08:48:00 Katrina [facility] BASIC METABOLIC PANEL (NA, 2020-04-07 08:48:00 Yosvany Herndon [facility] K, CL, CO2, GLUCOSE, BUN, Medica l Branch CREATININE, CA) CBC WITH DIFF 2020-04-07 08:48:00 Katrina [facility] XR CHEST 1 VW 2020-04-07 08:10:00 Becky, [facility] POCT GLUCOSE (AUTOMATED) 2020-04-07 04:36:00 Bia Pedro [facility] AC PANEL 21 + LACTIC ACID 2020-04-07 02:05:00 Bigg [facility] MRSA / MSSA SCREEN BY PCR, 2020-04-07 02:05:00 Grant Santana i [facility] BLOOD CULTURE SCREEN 2020-04-07 02:05:00 Grant Cheema [facility] POCT GLUCOSE (AUTOMATED) 2020-04-07 00:37:00 Bia Pedro [facility] HCV ANTIBODY 2020-04-06 23:44:00 Grant Cheema [facility] POCT GLUCOSE (AUTOMATED) 2020-04-06 23:43:00 Bia Pedro [facility] HIV 1/2 AG-AB WITH REFLEX 2020-04-06 23:30:[address] [facility] POCT GLUCOSE (AUTOMATED) 2020-04-06 22:14:00 Bia Pedro [facility] ECHO ROUTINE W/DOPPLER 2020-04-06 20:25:55 Yosvany Herndon [facility] PROTHROMBIN TIME / INR 2020-04-06 19:00:00 Rosaura Pena [facility] ACTIVATED PARTIAL THRMPLAS 2020-04-06 19:00:00 Becky [facility] MAGNESIUM 2020-04-06 19:00:00 Becky [facility] BASIC METABOLIC PANEL (NA, 2020-04-06 19:00:00 Becky [facility] K, CL, CO2, GLUCOSE, BUN, [facility] CREATININE, CA) COMP. METABOLIC PANEL 2020-04-06 19:00:00 Yosvany Herndon [facility] ([id number]) [facility] CBC WITH DIFF 2020-04-06 19:00:00 [place], [facility] AC PANEL 21 + LACTIC ACID 2020-04-06 18:59:00 Simi Dennis [facility] ABG+COOX+NA+K+GLU+CA2+ 2020-04-06 16:06:00 Bia Pedro [facility] INTUBATION 2020-04-06 16:04:59 Ana Syed [facility] XR CHEST 1 2020-04-06 15:43:00 Katrina [facility] SURGICAL PATHOLOGY EXAM 2020-04-06 15:12:00 Eliot Juventino [facility] CENTRAL LINE 2020-04-06 14:52:[address] [facility] ARTERIAL LINE 2020-04-06 14:51:44 Ana Syed [facility] ASPIRATE OR ABSCESS 2020-04-06 14:50:29 Person, [facility] CULTURE(AEROBIC/ANAEROBIC) [facility] [employer] CULTURE 2020-04-06 14:50:29 Person, [facility] FUNGUS (ROUTINE) CULTURE 2020-04-06 14:50:29 Person, Juventino [facility] ABG+COOX+NA+K+GLU+CA2+ 2020-04-06 14:46:00 Bia [facility] HB ABO GROUPING 2020-04-06 14:39:00 Dana Sampson [facility] EXPLORATORY LAPAROTOMY 2020-04-06 13:51:00 Person Juventino [facility] URINE CULTURE 2020-04-06 13:48:00 Grant Cheema [facility] XR KUB 2020-04-06 13:34:22 Grant Cheema, [facility] XR CHEST 1 VW 2020-04-06 13:34:22 Grant Cheema [facility] MAGNESIUM 2020-04-06 11:47:00 Rosaura Pena [facility] BASIC METABOLIC PANEL (NA, 2020-04-06 11:47:00 Becky [facility] K, CL, CO2, GLUCOSE, BUN, [facility] CREATININE, CA) CBC WITH DIFF 2020-04-06 11:47:00 Becky [facility] XR KUB 2020-04-05 21:34:47 [facility] 2020-04-05 19:41:00 Grant Cheema, [facility] MAGNESIUM 2020-04-05 09:44:00 Becky [facility] BASIC METABOLIC PANEL (NA, 2020-04-05 09:44:00 Becky [facility] K, CL, CO2, GLUCOSE, BUN, [facility] CREATININE, CA) CBC WITH DIFF 2020-04-05 09:44:00 Becky [facility] MAGNESIUM 2020-04-04 10:09:00 Becky [facility] BASIC METABOLIC PANEL (NA, 2020-04-04 10:09:00 Becky [facility] K, CL, CO2, GLUCOSE, BUN, [facility] CREATININE, CA) CBC WITH DIFF 2020-04-04 10:09:00 Becky [facility] SURGICAL PATHOLOGY EXAM 2020-04-03 20:13:00 Mayela [facility] LAPAROSCOPIC COLECTOMY 2020-04-03 15:35:00 Mayela [facility] COLONOSCOPY 2020-04-03 15:35:00 Mayela [facility] COLECTOMY 2020-04-03 15:35:00 Mayela [facility] MAGNESIUM 2020-04-03 09:20:00 Becky [facility] BASIC METABOLIC PANEL (NA, 2020-04-03 09:20:00 Becky [facility] K, CL, CO2, GLUCOSE, BUN, [facility] CREATININE, CA) CBC WITH DIFF 2020-04-03 09:20:00 Becky, [facility] HB ABO GROUPING 2020-04-02 22:45:00 Hugo Alfaro [facility] MAGNESIUM 2020-04-02 10:22:00 Becky [facility] BASIC METABOLIC PANEL (NA, 2020-04-02 10:22:00 Becky [facility] K, CL, CO2, GLUCOSE, BUN, [facility] CREATININE, CA) CBC WITH DIFF 2020-04-02 10:22:00 Becky [facility] COVID-19 (ID NOW RAPID 2020-04-01 23:02:00 Becky [facility] TESTING) [facility] URINALYSIS 2020-03-31 11:25:00 Alex Lopez [facility] CT ABDOMEN PELVIS W 2020-03-31 00:17:06 Alex Lopez [facility] CONTRAST [facility] XR CHEST 1 VW 2020-03-30 22:43:49 [facility] EKG-12 LEAD 2020-03-30 22:14:24 Doctor Unassigned, [facility] May Medical Branch PROTHROMBIN TIME / INR 2020-03-30 22:05:00 Alex Lopez [facility] ACTIVATED PARTIAL THRMPLAS 2020-03-30 22:05:00 Alex Lopez [facility] SELENA [facility] N-TERMINAL PRO-BNP 2020-03-30 22:05:00 Alex Lopez [facility] LIPASE 2020-03-30 22:05:00 Colette Vtgeri [facility] TROPONIN I 2020-03-30 22:05:00 [facility] HEPATIC FUNCTION PANEL 2020-03-30 22:05:[address] [facility] ([id number]) (ALB,T.PRO,BILI Medical Branch T,BU/BC,ALT,AST,ALK PHOS) BASIC METABOLIC PANEL (NA, 2020-03-30 22:05:00 Lopez, [facility] K, CL, CO2, GLUCOSE, BUN, Medica l Branch CREATININE, CA) CBC WITH DIFF 2020-03-30 22:05:00 Co[facility] EKG-12 LEAD 2020-03-30 22:01:44 Co[facility] HOSPITAL ADMISSION 2020-03-30 05:01:00 Doctor Unassigned, [facility] MAGNESIUM 2020-03-26 09:57:00 Simin [facility] BASIC METABOLIC PANEL (NA, 2020-03-26 09:57:00 Simin, [facility] K, CL, CO2, GLUCOSE, BUN, [facility] CREATININE, CA) CBC WITH DIFF 2020-03-26 09:57:00 Simin [facility] LACTIC ACID WHOLE BLOOD 2020-03-26 04:09:00 [facility] (ID NOW RAPID 2020-03-26 02:01:[address] [facility] TESTING) [facility] CT ABDOMEN PELVIS W 2020-03-26 01:17:18 Bernardo Donnelly [facility] CONTRAST [facility] PHOSPHORUS 2020-03-26 00:39:00 Simin [facility] MAGNESIUM 2020-03-26 00:39:00 Simin [facility] HEPATIC FUNCTION PANEL 2020-03-26 00:39:[address] [facility] ([id number]) ([facility],BU/BC,ALT,AST,ALK PHOS) BASIC METABOLIC PANEL (NA, 2020-03-26 00:39:00 Bernardo Donnelly [facility] K, CL, CO2, GLUCOSE, BUN, Medica l Branch CREATININE, CA) CBC WITH DIFF 2020-03-26 00:39:00 Bernardo Donnelly [facility] EXTRA TUBE LT. BLUE 2020-03-26 00:39:00 Bernardo Donnelly [facility] HOSPITAL ADMISSION 2020-03-25 05:01:00 Doctor Unassigned, [facility] PROTHROMBIN TIME / INR 2020-03-03 04:27:00 Ori Persaud [facility] ACTIVATED PARTIAL THRMPLAS 2020-03-03 04:27:00 Zahraa Persaud se [facility] XR ABDOMEN ACUTE SERIES 2020-03-03 02:15:00 Shy [facility] PHOSPHORUS 2020-03-03 01:22:00 Ori Persaud [facility] MAGNESIUM 2020-03-03 01:22:00 Ori Persaud [facility] HEPATIC FUNCTION PANEL 2020-03-03 01:22:00 Shy [facility] ([id number]) (ALB,T.PRO,BILI [facility] T,BU/BC,ALT,AST,ALK PHOS) BASIC METABOLIC PANEL (NA, 2020-03-03 01:22:00 Shy [facility] K, CL, CO2, GLUCOSE, BUN, Medica l Branch CREATININE, CA) CBC WITH DIFFERENTIAL 2020-03-03 01:22:00 Shy [facility] URINALYSIS 2020-03-03 01:22:00 Shy [facility] LACTIC ACID WHOLE BLOOD 2020-03-03 01:22:00 Shy [facility] COVID-19 (ID NOW RAPID 2020-03-03 01:22:00 Shy [facility] TESTING) [facility] GALV/CLC ONLY - URINE DRUG 2020-02-27 20:02:00 [facility] (IMMUNOASSAY) - [facility] COMPREHENSIVE DRUG SCREEN FREE T4 2020-02-27 17:48:00 [facility] THYROID STIMULATING 2020-02-27 17:48:00 [facility] [place] HORMONE [facility] FREE T3 2020-02-27 17:48:00 [facility] CT ABDOMEN PELVIS W 2020-02-26 18:27:[address] [facility] CONTRAST [facility] COVID-19 (ID NOW RAPID 2020-02-26 06:41:00 Shy [facility] TESTING) Medical Branch XR ABDOMEN ACUTE SERIES 2020-02-26 04:48:30 [place], [facility] LIPASE 2020-02-26 03:35:00 Shy [facility] o f [facility] HEPATIC FUNCTION PANEL 2020-02-26 03:35:00 Shy [facility] ([id number]) (ALB,T.PRO,BILI Medical Branch T,BU/BC,ALT,AST,ALK PHOS) BASIC METABOLIC PANEL (NA, 2020-02-26 03:35:00 Shy [facility] K, CL, CO2, GLUCOSE, BUN, Medica l Branch CREATININE, CA) CBC WITH DIFFERENTIAL 2020-02-26 03:35:00 Shy [facility] LACTIC ACID WHOLE BLOOD 2020-02-26 03:35:00 Shy [facility] EXTRA TUBE LT. BLUE 2020-02-26 03:35:00 Shy [facility] MAGNESIUM 2020-02-03 16:38:00 Simin [facility] BASIC METABOLIC PANEL (NA, 2020-02-03 16:38[facility], CO2, GLUCOSE, BUN, Medica l Branch CREATININE, CA) XR KUB 2020-01-31 16:59:00 [facility]ABOLIC PANEL (NA, 2020-01-31 06:15:00 Kirill Henson [facility] K, CL, CO2, GLUCOSE, BUN, Medica l Branch CREATININE, CA) CBC WITH DIFFERENTIAL 2020-01-31 06:15:00 Kirill Henson [facility] BASIC METABOLIC PANEL (NA, 2020-01-29 10:06:00 Nataly [facility] K, CL, CO2, GLUCOSE, BUN, Medica l Branch CREATININE, CA) CBC WITH DIFFERENTIAL 2020-01-29 10:06[facility]00 [facility] 2020-01-29 03:56:00 [facility] L[facility] ACID WHOLE BLOOD 2020-01-29 03:55:00 Bernardo Donnelly [facility] EXTRA TUBE LAV 2020-01-29 03:55:00 Liz [facility] EXTRA TUBE LT. BLUE 2020-01-29 03:55:00 [facility] EXTRA TUBE LT. GREEN 2020-01-29 03:55:[address] [facility] URINALYSIS 2020-01-29 01:35:00 JuradoSoheilaSilvia I [facility] COVID-19 (ID NOW RAPID 2020-01-29 01:32:[address] [facility] TESTING) Medical Branch CT ABDOMEN PELVIS W 2020-01-28 23:53:23 Silvia Jurado [facility] CONTRAST [facility] LIPASE 2020-01-28 23:19:00 Jurado [facility] HEPATIC FUNCTION PANEL 2020-01-28 23:19:00 [place] [facility] ([id number]) (ALB,T.PRO,BILI [facility] T,BU/BC,ALT,AST,ALK PHOS) BASIC METABOLIC PANEL (NA, 2020-01-28 23:19:00 JuradoSondra [facility] K, CL, CO2, GLUCOSE, BUN, Medica l Branch CREATININE, CA) CBC WITH DIFFERENTIAL 2020-01-28 23:19:00 Silvia Jurado I U [facility] HOSPITAL ADMISSION 2020-01-28 05:01:00 Doctor Unassigned, [facility] May Medical Branch BASIC METABOLIC PANEL (NA, 2020-01-26 18:06:00 Felix Duvaldickson [facility] K, CL, CO2, GLUCOSE, BUN, Medica l Branch CREATININE, CA) MAGNESIUM 2020-01-26 08:17:00 Liz [facility] XR KUB 2020-01-26 06:00:00 Helene Griffin [facility] PHOSPHORUS 2020-01-25 09:43:00 Liz [facility] COVID-19 (ID NOW RAPID 2020-01-25 04:31:[address] [facility] TESTING) Medical Branch LACTIC ACID WHOLE BLOOD 2020-01-25 04:27:[address] [facility] [address] ABDOMEN PELVIS W 2020-01-25 02:15:22 Shy [facility] CONTRAST [facility] URINALYSIS 2020-01-25 01:05:00 Shy [facility] LIPASE 2020-01-25 00:42:00 Shy [facility] HEPATIC FUNCTION PANEL 2020-01-25 00:42:00 Shy [facility] ([id number]) (ALB,T.PRO,BILI [facility] T,BU/BC,ALT,AST,ALK PHOS) BASIC METABOLIC PANEL (NA, 2020-01-25 00:42:00 Shy [facility] K, CL, CO2, GLUCOSE, BUN, Medica l Branch CREATININE, CA) CBC WITH DIFFERENTIAL 2020-01-25 00:42:00 Shy [facility] [id number] 2020-01-09 00:00:[address] [place] [address] EXTERNAL PROVIDER RECORDS 2019-12-28 05:01:00 Doctor Unassigned, [facility] May [facility] Plan of Care Planned Activity Planned Date Details Comments Source Future Scheduled 2029-03-23 Screening for malignant [facility] 00:00:00 neoplasm of colon Medical Ce nter (procedure) [code = [id number]] Future Scheduled 2029-03-23 Screening for malignant [facility] 00:00:00 neoplasm of colon Medical Ce nter (procedure) [code = 372825682] Future Scheduled 2029-03-23 Screening for malignant [facility] 00:00:00 neoplasm of colon Medical Ce nter (procedure) [code = 421148186] Future Scheduled 2029-03-23 Screening for malignant [facility] Test 00:00:00 neoplasm of colon Medical Ce nter (procedure) [code = 052241547] Future Scheduled 2029-03-23 Screening for malignant [facility] Test 00:00:00 neoplasm of colon Medical Ce nter (procedure) [code = 082725135] Future Scheduled 2029-03-23 Screening for malignant [facility] 00:00:00 neoplasm of colon Medical Ce nter (procedure) [code = 624576781] Future Scheduled 2029-03-23 Screening for malignant [facility] Test 00:00:00 neoplasm of colon Medical Ce nter (procedure) [code = 673424252] Future Scheduled 2029-03-23 Screening for malignant [facility] 00:00:00 neoplasm of colon Medical Ce nter (procedure) [code = 993978365] Future Scheduled 2029-03-23 Screening for malignant [facility] 00:00:00 neoplasm of colon Medical Ce nter (procedure) [code = 939033215] Future Scheduled 2029-03-23 Screening for malignant [facility] 00:00:00 neoplasm of colon Medical Ce nter (procedure) [code = 139331186] Future Scheduled 2029-03-23 Screening for malignant [facility] 00:00:00 neoplasm of colon Medical Ce nter (procedure) [code = 070457689] Future Scheduled 2029-03-23 Screening for malignant [facility] 00:00:00 neoplasm of colon Medical Ce nter (procedure) [code = 215095838] Future Scheduled 2029-03-23 Screening for malignant [facility] 00:00:00 neoplasm of colon Medical Ce nter (procedure) [code = 730060682] Future Scheduled 2029-03-23 Screening for malignant [facility] 00:00:00 neoplasm of colon Medical Ce nter (procedure) [code = 770108257] Future Scheduled 2029-03-23 Screening for malignant [facility] 00:00:00 neoplasm of colon Medical Ce nter (procedure) [code = 955380406] Future Scheduled 2029-03-23 Screening for malignant [facility] 00:00:00 neoplasm of colon Medical Ce nter (procedure) [code = 314682836] Future Scheduled 2029-03-23 Screening for malignant [facility] 00:00:00 neoplasm of colon Medical Ce nter (procedure) [code = 273578274] Future Scheduled 2029-03-23 Screening for malignant [facility] 00:00:00 neoplasm of colon Medical Ce nter (procedure) [code = 548829411] Future Scheduled 2029-03-23 Screening for malignant [facility] 00:00:00 neoplasm of colon Medical Ce nter (procedure) [code = 456379836] Future Scheduled 2029-03-23 Screening for malignant [facility] 00:00:00 neoplasm of colon Medical Ce nter (procedure) [code = 364412969] Future Scheduled 2029-03-23 Screening for malignant [facility] 00:00:00 neoplasm of colon Medical Ce nter (procedure) [code = 376766446] Future Scheduled 2029-03-23 Screening for malignant [facility] 00:00:00 neoplasm of colon Medical Ce nter (procedure) [code = 272448226] Future Scheduled 2029-03-23 Screening for malignant [facility] 00:00:00 neoplasm of colon Medical Ce nter (procedure) [code = 708505889] Future Scheduled 2029-03-23 Screening for malignant [facility] 00:00:00 neoplasm of colon Medical Ce nter (procedure) [code = 422126811] Future Scheduled 2029-03-23 Screening for malignant [facility] 00:00:00 neoplasm of colon Medical Ce nter (procedure) [code = 326713748] Future Scheduled 2029-03-23 Screening for malignant [facility] 00:00:00 neoplasm of colon Medical Ce nter (procedure) [code = 060283687] Future Scheduled 2029-03-23 Screening for malignant [facility] 00:00:00 neoplasm of colon Medical Ce nter (procedure) [code = 851459119] Future Scheduled 2029-03-23 Screening for malignant [facility] 00:00:00 neoplasm of colon Medical Ce nter (procedure) [code = 485597224] Future Scheduled 2029-03-23 Screening for malignant [facility] 00:00:00 neoplasm of colon Medical Ce nter (procedure) [code = 390827634] Future Scheduled 2029-03-23 Screening for malignant [facility] 00:00:00 neoplasm of colon Medical Ce nter (procedure) [code = 371955094] Future Scheduled 2029-03-23 Screening for malignant [facility] 00:00:00 neoplasm of colon Medical Ce nter (procedure) [code = 203686128] Future Scheduled 2029-03-23 Screening for malignant [facility] 00:00:00 neoplasm of colon Medical Ce nter (procedure) [code = 033108778] Future Scheduled 2029-03-23 Screening for malignant [facility] 00:00:00 neoplasm of colon Medical Ce nter (procedure) [code = 448249063] Future Scheduled 2029-03-23 Screening for malignant [facility] 00:00:00 neoplasm of colon Medical Ce nter (procedure) [code = 281950325] Future Scheduled 2029-03-23 Screening for malignant [facility] 00:00:00 neoplasm of colon Medical Ce nter (procedure) [code = 162994426] Future Scheduled 2029-03-23 Screening for malignant [facility] 00:00:00 neoplasm of colon Medical Ce nter (procedure) [code = 584648138] Future Scheduled 2029-03-23 Screening for malignant [facility] 00:00:00 neoplasm of colon Medical Ce nter (procedure) [code = 536326992] Future Scheduled 2029-03-23 Screening for malignant [facility] 00:00:00 neoplasm of colon Medical Ce nter (procedure) [code = 709329706] Future Scheduled 2029-03-23 Screening for malignant [facility] 00:00:00 neoplasm of colon Medical Ce nter (procedure) [code = 971311798] Future Scheduled 2029-03-23 Screening for malignant [facility] 00:00:00 neoplasm of colon Medical Ce nter (procedure) [code = 699648939] Future Scheduled 2029-03-23 Screening for malignant [facility] 00:00:00 neoplasm of colon Medical Ce nter (procedure) [code = 598102534] Future Scheduled 2029-03-23 Screening for malignant [facility] 00:00:00 neoplasm of colon Medical Ce nter (procedure) [code = 925880400] Future Scheduled 2029-03-23 Screening for malignant [facility] 00:00:00 neoplasm of colon Medical Ce nter (procedure) [code = 432608049] Future Scheduled 2029-03-23 Screening for malignant [facility] 00:00:00 neoplasm of colon Medical Ce nter (procedure) [code = 207821127] Future Scheduled 2029-03-23 Screening for malignant [facility] 00:00:00 neoplasm of colon Medical Ce nter (procedure) [code = 982271651] Future Scheduled 2029-03-23 Screening for malignant [facility] 00:00:00 neoplasm of colon Medical Ce nter (procedure) [code = 877446896] Future Scheduled 2029-03-23 Screening for malignant [facility] 00:00:00 neoplasm of colon Medical Ce nter (procedure) [code = 705589783] Future Scheduled 2029-03-23 Screening for malignant [facility] 00:00:00 neoplasm of colon Medical Ce nter (procedure) [code = 402624245] Future Scheduled 2029-03-23 Screening for malignant [facility] 00:00:00 neoplasm of colon Medical Ce nter (procedure) [code = 726541751] Future Scheduled 2029-03-23 Screening for malignant [facility] 00:00:00 neoplasm of colon Medical Ce nter (procedure) [code = 000418117] Future Scheduled 2029-03-23 Screening for malignant [facility] 00:00:00 neoplasm of colon Medical Ce nter (procedure) [code = 827231665] Future Scheduled 2029-03-23 Screening for malignant [facility] 00:00:00 neoplasm of colon Medical Ce nter (procedure) [code = 023238065] Future Scheduled 2029-03-23 Screening for malignant [facility] 00:00:00 neoplasm of colon Medical Ce nter (procedure) [code = 979473363] Future Scheduled 2029-03-23 Screening for malignant [facility] 00:00:00 neoplasm of colon Medical Ce nter (procedure) [code = 821882840] Future Scheduled 2029-03-23 Screening for malignant [facility] 00:00:00 neoplasm of colon Medical Ce nter (procedure) [code = 865929469] Future Scheduled 2029-03-23 Screening for malignant [facility] 00:00:00 neoplasm of colon Medical Ce nter (procedure) [code = 505379714] Future Scheduled 2029-03-23 Screening for malignant [facility] 00:00:00 neoplasm of colon Medical Ce nter (procedure) [code = 233802143] Future Scheduled 2029-03-23 Screening for malignant [facility] 00:00:00 neoplasm of colon Medical Ce nter (procedure) [code = 491542537] Future Scheduled 2029-03-23 Screening for malignant [facility] 00:00:00 neoplasm of colon Medical Ce nter (procedure) [code = 767496612] Future Scheduled 2023-05-24 IMM Influenza Seasonal H [...] ical Center VACCINE (Season Ended)] Future Scheduled 2023-04-24 Influenza Vaccine (#1) [facility] [code = Influenza Vaccine Me dical Center (#1)] Future Scheduled 2023-04-24 Influenza Vaccine (#1) [facility] 00:00:00 [code = Influenza Vaccine Me dical Center (#1)] Future Scheduled 2023-03-[address] [facility] 00:00:00 Counseling and Screening Med ical Center (12+) [code = Tobacco Cessation Counseling and Screening (12+)] Future Scheduled 2023-03-[address] [facility] 00:00:00 Counseling and Screening Med ical Center (12+) [code = Tobacco Cessation Counseling and Screening (12+)] Future Scheduled 2023-03-[address] [facility] Test 00:00:00 [code = INFLUENZA VACCINE [facility] (#[facility])] Future Scheduled 2020-02-14 SHINGLES VACCINES (1 [...] 00:00:00 neoplasm of colon (procedure) [code = 467290752] Future Scheduled 2020-02-14 Screening for malignant [facility] 00:00:00 neoplasm of colon (procedure) [code = 912186338] Future Scheduled 2020-02-14 Screening for malignant [facility] 00:00:00 neoplasm of colon (procedure) [code = 228572154] Future Scheduled 2020-02-14 Screening for malignant [facility] 00:00:00 neoplasm of colon (procedure) [code = 524408553] Future Scheduled 2020-02-14 Screening for malignant [facility] 00:00:00 neoplasm of colon (procedure) [code = 577218517] Future Scheduled 2020-02-14 Screening for malignant [facility] 00:00:00 neoplasm of colon (procedure) [code = 687331080] Future Scheduled 2020-02-14 Screening for malignant [facility] 00:00:00 neoplasm of colon (procedure) [code = 435806469] Future Scheduled 2020-02-14 Screening for malignant [facility] 00:00:00 neoplasm of colon (procedure) [code = 749027212] Future Scheduled 2020-02-14 Screening for malignant [facility] 00:00:00 neoplasm of colon (procedure) [code = 400862876] Future Scheduled 2020-02-14 Screening for malignant [facility] 00:00:00 neoplasm of colon (procedure) [code = 107670418] Future Scheduled 2020-02-14 Screening for malignant [facility] 00:00:00 neoplasm of colon (procedure) [code = 415511760] Future Scheduled 2020-02-14 Screening for malignant [facility] 00:00:00 neoplasm of colon (procedure) [code = 507909170] Future Scheduled 2020-02-14 Screening for malignant [facility] 00:00:00 neoplasm of colon (procedure) [code = 828071763] Future Scheduled 2020-02-14 Screening for malignant [facility] 00:00:00 neoplasm of colon (procedure) [code = 054692808] Future Scheduled 2020-02-14 Screening for malignant [facility] 00:00:00 neoplasm of colon (procedure) [code = 314683296] Future 2020-02-14 Screening for malignant [facility] 00:00:00 neoplasm of colon (procedure) [code = 499189092] Future Scheduled 2020-02-14 Screening for malignant [facility] 00:00:00 neoplasm of colon (procedure) [code = 960269513] Future 2020-02-14 Screening for malignant [facility] 00:00:00 neoplasm of colon (procedure) [code = 028720303] Future Scheduled 2020-02-14 Screening for malignant [facility] 00:00:00 neoplasm of colon (procedure) [code = 075982625] Future Scheduled 2020-02-14 Screening for malignant [facility] 00:00:00 neoplasm of colon (procedure) [code = 703971156] Future Scheduled 2020-02-14 Screening for malignant [facility] 00:00:00 neoplasm of colon (procedure) [code = 017927768] Future Scheduled 2020-02-14 Screening for malignant [facility] 00:00:00 neoplasm of colon (procedure) [code = 747937757] Future Scheduled 2020-02-14 Screening for malignant [facility] 00:00:00 neoplasm of colon (procedure) [code = 967897219] Future Scheduled 2020-02-14 Screening for malignant [facility] 00:00:00 neoplasm of colon (procedure) [code = 460970078] Future Scheduled 2020-02-14 Screening for malignant [facility] 00:00:00 neoplasm of colon (procedure) [code = 597882907] Future Scheduled 2020-02-14 Screening for malignant [facility] 00:00:00 neoplasm of colon (procedure) [code = 558680966] Future Scheduled 2020-02-14 Screening for malignant [facility] 00:00:00 neoplasm of colon (procedure) [code = 148648188] Future Scheduled 2020-02-14 SHINGLES VACCINES ([address] [facility] 00:00:00 2) [code = [facility] VACCINES (1 of 2)] Future Scheduled 2005 Lipid panel (procedure) [facility] 00:00:00 [code = 27409758] Medical Ce nter Future Scheduled 2005 Lipid panel (procedure) [facility] 00:00:00 [code = 71412668] Medical Ce nter Future Scheduled 2005 Lipid panel (procedure) [facility] 00:00:00 [code = 75078736] Medical Ce nter Future Scheduled 2005 Lipid panel (procedure) [facility] 00:00:00 [code = 54653512] Medical Ce nter Future Scheduled 2005 Lipid panel (procedure) [facility] 00:00:00 [code = 67603338] Medical Ce nter Future Scheduled 2005 Lipid panel (procedure) [facility] 00:00:00 [code = 96658451] Medical Ce nter Future Scheduled 2005 Lipid panel (procedure) [facility] 00:00:00 [code = 38637756] Medical Ce nter Future Scheduled 2005 Lipid panel (procedure) [facility] 00:00:00 [code = 49374110] Medical Ce nter Future Scheduled 2005 Lipid panel (procedure) [facility] 00:00:00 [code = 70882040] Medical Ce nter Future Scheduled 2005 Lipid panel (procedure) [facility] 00:00:00 [code = 06574483] Medical Ce nter Future Scheduled 2005 Lipid panel (procedure) [facility] 00:00:00 [code = 14345035] Medical Ce nter Future Scheduled 2005 Lipid panel (procedure) [facility] 00:00:00 [code = 83304726] Medical Ce nter Future Scheduled 2005 Lipid panel (procedure) [facility] 00:00:00 [code = 70193831] Medical Ce nter Future Scheduled 2005 Lipid panel (procedure) [facility] 00:00:00 [code = 32929576] Medical Ce nter Future Scheduled 2005 Lipid panel (procedure) [facility] 00:00:00 [code = 99449852] Medical Ce nter Future Scheduled 2005 Lipid panel (procedure) [facility] 00:00:00 [code = 46705075] Medical Ce nter Future Scheduled 2005 Lipid panel (procedure) [facility] 00:00:00 [code = 79642032] Medical Ce nter Future Scheduled 2005 Lipid panel (procedure) [facility] 00:00:00 [code = 40874399] Medical Ce nter Future Scheduled 2005 Lipid panel (procedure) [facility] 00:00:00 [code = 16864515] Medical Ce nter Future Scheduled 2005 Lipid panel (procedure) [facility] 00:00:00 [code = 61597430] Medical Ce nter Future Scheduled 2005 Lipid panel (procedure) [facility] 00:00:00 [code = 99298953] Medical Ce nter Future Scheduled 2005 Lipid panel (procedure) [facility] 00:00:00 [code = 42304246] Medical Ce nter Future Scheduled 2005 Lipid panel (procedure) [facility] 00:00:00 [code = 47509775] Medical Ce nter Future Scheduled 2005 Lipid panel (procedure) [facility] 00:00:00 [code = 93775987] Medical Ce nter Future Scheduled 2005 Lipid panel (procedure) [facility] 00:00:00 [code = 31914048] Medical Ce nter Future Scheduled 2005 Lipid panel (procedure) [facility] 00:00:00 [code = 65024406] Medical Ce nter Future Scheduled 2005 Lipid panel (procedure) [facility] 00:00:00 [code = 36737495] Medical Ce nter Future Scheduled 2005 Lipid panel (procedure) [facility] 00:00:00 [code = 02411288] Medical Ce nter Future Scheduled 2005 Lipid panel (procedure) [facility] 00:00:00 [code = 03215909] Medical Ce nter Future Scheduled 2005 Lipid panel (procedure) [facility] 00:00:00 [code = 72563937] Medical Ce nter Future Scheduled 1989 DTAP/TDAP/TD [...] screening [facility] Cent [facility] (procedure) [code = 496122702] Future Scheduled [address] [facility] 00:00:00 virus screening [facility] (procedure) [code = 197856718] Future Scheduled [address] [facility] 00:00:00 virus screening [facility] Cent [facility] (procedure) [code = 812793686] Future Scheduled [address] [facility] Test 00:00:00 [code = COVID-19 VACCINE Med [facility] (#1)] Future Scheduled 1970 Screening for malignant [facility] 00:00:00 neoplasm of colon Medical Ce nter (procedure) [code = 783494118] Future Scheduled 1970 Screening for malignant [facility] 00:00:00 neoplasm of colon Medical Ce nter (procedure) [code = 823358743] Future Scheduled 1970 Sigmoidoscopy [code = [facility]] Medical Cent[facility] r Future Scheduled 1970 CT Colonography (combo) [facility] 00:00:00 [code = CT Colonography [facility] (combo)] Future Scheduled 1970 Screening for malignant [facility] 00:00:00 neoplasm of colon Medical Ce nter (procedure) [code = 995956764] Future Scheduled 1970 Screening for malignant [facility] 00:00:00 neoplasm of colon Medical Ce nter (procedure) [code = 768619264] Future Scheduled 1970 Sigmoidoscopy [code = [facility] S[facility]oscopy] Medical Cent[facility] r Future Scheduled 1970 CT Colonography (combo) [facility] 00:00:00 [code = CT Colonography [facility] (combo)] Future Scheduled 1970 Screening for malignant [facility] 00:00:00 neoplasm of colon Medical Ce nter (procedure) [code = 369586695] Future Scheduled 1970 Screening for malignant [facility] 00:00:00 neoplasm of colon Medical Ce nter (procedure) [code = 204893173] Future Scheduled 1970 Sigmoidoscopy [code = [facility] S[facility]oscopy] Medical Cente r Future Scheduled 1970 CT Colonography (combo) [facility] 00:00:00 [code = CT Colonography [facility] (combo)] Future Scheduled 1970 Screening for malignant [facility] 00:00:00 neoplasm of colon Medical Ce nter (procedure) [code = 565474057] Future Scheduled 1970 Screening for malignant [facility] 00:00:00 neoplasm of colon Medical Ce nter (procedure) [code = 626222828] Future Scheduled 1970 Sigmoidoscopy [code = [facility] Sigmoidoscopy] [facility] [place] r Future Scheduled 1970 CT Colonography (combo) [facility] 00:00:00 [code = CT Colonography [facility] (combo)] Future Scheduled 1970 Screening for malignant [facility] 00:00:00 neoplasm of colon Medical Ce nter (procedure) [code = 825540587] Future Scheduled 1970 Screening for malignant [facility] 00:00:00 neoplasm of colon Medical Ce nter (procedure) [code = 254081266] Future Scheduled 1970 Sigmoidoscopy [code = [facility] S[facility]oscopy] Medical [facility] Future Scheduled 1970 CT Colonography (combo) [facility] 00:00:00 [code = CT Colonography [facility] Center (combo)] Future Scheduled 1970 Screening for malignant [facility] 00:00:00 neoplasm of colon Medical Ce nter (procedure) [code = 888405235] Future Scheduled 1970 Screening for malignant [facility] 00:00:00 neoplasm of colon Medical Ce nter (procedure) [code = 050997211] Future Scheduled 1970 S[facility]oid[facility]oscopy] Medical Seda r Future Scheduled 1970 CT Colonography (combo) [facility] 00:[facility]:00 [code = CT [facility] ([facility])] Future Scheduled 1970 Screening for malignant [facility] 00:00:00 neoplasm of colon Medical Ce nter (procedure) [code = 462619727] Future Scheduled 1970 Screening for malignant [facility] 00:00:00 neoplasm of colon Medical Ce nter (procedure) [code = 643353944] Future Scheduled 1970 Sigmoidoscopy [code = [facility] 00:[facility] Sigmoidoscopy] Medical Seda r Future Scheduled 1970 CT Colonography (combo) [facility] 00:00:00 [code = CT [facility] ([facility])] Future Scheduled 1970 Screening for malignant [facility] 00:00:00 neoplasm of colon Medical Ce nter (procedure) [code = 349590302] Future Scheduled 1970 Screening for malignant [facility] 00:00:00 neoplasm of colon Medical Ce nter (procedure) [code = 036662677] Future Scheduled 1970 Sigmoidoscopy [facility]code = [facility] S[facility]oscopy] Medical Cente r Future Scheduled 1970 CT Colonography (combo) [facility] 00:00:00 [code = CT [facility] ([facility])] Future Scheduled 1970 Screening for malignant [facility] 00:00:00 neoplasm of colon Medical Ce nter (procedure) [code = 258019326] Future Scheduled 1970 Screening for malignant [facility] 00:00:00 neoplasm of colon Medical Ce nter (procedure) [code = 776015162] Future Scheduled 1970 Sigmoidoscopy [code = [facility] 00:[facility] Sigmoidoscopy] Medical Cente r Future Scheduled 1970 CT Colonography (combo) [facility] 00:00:00 [code = CT [facility] ([facility])] Future Scheduled 1970 Screening for malignant [facility] 00:00:00 neoplasm of colon Medical Ce nter (procedure) [code = 887469796] Future Scheduled 1970 Screening for malignant [facility] 00:00:00 neoplasm of colon Medical Ce nter (procedure) [code = 721883716] Future Scheduled 1970 Sigmoidoscopy [code = [facility] 00:[facility] Sigmoidoscopy] Medical Cente r Future Scheduled 1970 CT Colonography (combo) [facility] 00:00:00 [code = CT [facility] ([facility])] Future Scheduled 1970 Screening for malignant [facility] 00:00:00 neoplasm of colon Medical Ce nter (procedure) [code = 508884783] Future Scheduled 1970 Screening for malignant [facility] 00:00:00 neoplasm of colon Medical Ce nter (procedure) [code = 576691071] Future Scheduled 1970 Sigmoidoscopy [code = [facility] 00:[facility] Sigmoidoscopy] Medical Cente r Future Scheduled 1970 CT Colonography (combo) [facility] 00:00:00 [code = CT [facility] ([facility])] Future Scheduled 1970 Screening for malignant [facility] 00:00:00 neoplasm of colon Medical Ce nter (procedure) [code = 757367200] Future Scheduled 1970 Screening for malignant [facility] 00:00:00 neoplasm of colon Medical Ce nter (procedure) [code = 345669723] Future Scheduled 1970 Sigmoidoscopy [code = [facility] 00:[facility] Sigmoidoscopy] Medical Cente r Future Scheduled 1970 CT Colonography (combo) [facility] 00:00:00 [code = CT [facility])] Future Scheduled 1970 Screening for malignant [facility] 00:00:00 neoplasm of colon Medical Ce nter (procedure) [code = 764087959] Future Scheduled 1970 Screening for malignant [facility] 00:00:00 neoplasm of colon Medical Ce nter (procedure) [code = 887908704] Future Scheduled 1970 Sigmoidoscopy [code [facility] Sigmoidoscopy] Medical Angele r Future Scheduled 1970 CT Colonography (combo) [facility] 00:00:00 [code = CT [facility])] Future Scheduled 1970 Screening for malignant [facility] 00:00:00 neoplasm of colon Medical Ce nter (procedure) [code = 318949522] Future Scheduled 1970 Screening for malignant [facility] 00:00:00 neoplasm of colon Medical Ce nter (procedure) [code = 356861040] Future Scheduled 1970 Sigmoidoscopy [code = [facility] 00:[facility] Sigmoidoscopy] Medical Angele r Future Scheduled 1970 CT Colonography (combo) [facility] 00:00:00 [code = CT [facility])] Future Scheduled 1970 Screening for malignant [facility] 00:00:00 neoplasm of colon Medical Ce nter (procedure) [code = 111928257] Future Scheduled 1970 Screening for malignant [facility] 00:00:00 neoplasm of colon Medical Ce nter (procedure) [code = 579857228] Future Scheduled 1970 Sigmoidoscopy [code = [facility] 00:[facility] Sigmoidoscopy] Medical Cente r Future Scheduled 1970 CT Colonography (combo) [facility] 00:00:00 [code = CT [facility] ([facility])] Future Scheduled 1970 Screening for malignant [facility] 00:00:00 neoplasm of colon Medical Ce nter (procedure) [code = 514165003] Future Scheduled 1970 Screening for malignant [facility] 00:00:00 neoplasm of colon Medical Ce nter (procedure) [code = 734840803] Future Scheduled 1970 Sigmoidoscopy [code = [facility] 00:[facility] Sigmoidoscopy] Medical Cente r Future Scheduled 1970 CT Colonography (combo) [facility] 00:00:00 [code = CT [facility] ([facility])] Future Scheduled 1970 Screening for malignant [facility] 00:00:00 neoplasm of colon Medical Ce nter (procedure) [code = 651225403] Future Scheduled 1970 Screening for malignant [facility] 00:00:00 neoplasm of colon Medical Ce nter (procedure) [code = 452731318] Future Scheduled 1970 Sigmoidoscopy [code = [facility] 00:[facility] Sigmoidoscopy] Medical Cente r Future Scheduled 1970 CT Colonography (combo) [facility] 00:00:00 [code = CT [facility] ([facility])] Future Scheduled 1970 Screening for malignant [facility] 00:00:00 neoplasm of colon Medical Ce nter (procedure) [code = 274152513] Future Scheduled 1970 Screening for malignant [facility] 00:00:00 neoplasm of colon Medical Ce nter (procedure) [code = 007784133] Future Scheduled 1970 Sigmoidoscopy [code = [facility] 00:[facility] Sigmoidoscopy] Medical Cente r Future Scheduled 1970 CT Colonography (combo) [facility] 00:00:00 [code = CT [facility] ([facility])] Future Scheduled 1970 Screening for malignant [facility] 00:00:00 neoplasm of colon Medical Ce nter (procedure) [code = 285566834] Future Scheduled 1970 Screening for malignant [facility] 00:00:00 neoplasm of colon Medical Ce nter (procedure) [code = 896145949] Future Scheduled 1970 Sigmoidoscopy [code = [facility] 00:[facility] Sigmoidoscopy] Medical Cente r Future Scheduled 1970 CT Colonography (combo) [facility] 00:00:00 [code = CT [facility] ([facility])] Future Scheduled 1970 Screening for malignant [facility] 00:00:00 neoplasm of colon Medical Ce nter (procedure) [code = 533363287] Future Scheduled 1970 Screening for malignant [facility] 00:00:00 neoplasm of colon Medical Ce nter (procedure) [code = 272434778] Future Scheduled 1970 Sigmoidoscopy [code = [facility] 00:[facility] Sigmoidoscopy] Medical Cente r Future Scheduled 1970 CT Colonography (combo) [facility] 00:00:00 [code = CT [facility] ([facility])] Future Scheduled 1970 Screening for malignant [facility] 00:00:00 neoplasm of colon Medical Ce nter (procedure) [code = 634045748] Future Scheduled 1970 Screening for malignant [facility] 00:00:00 neoplasm of colon Medical Ce nter (procedure) [code = 426583927] Future Scheduled 1970 Sigmoidoscopy [code = [facility] 00:[facility] Sigmoidoscopy] Medical Cente r Future Scheduled 1970 CT Colonography (combo) [facility] 00:00:00 [code = CT [facility] ([facility])] Future Scheduled 1970 Screening for malignant [facility] 00:00:00 neoplasm of colon Medical Ce nter (procedure) [code = 478463068] Future Scheduled 1970 Screening for malignant [facility] 00:00:00 neoplasm of colon Medical Ce nter (procedure) [code = 585175487] Future Scheduled 1970 Sigmoidoscopy [code = [facility] 00:[facility] Sigmoidoscopy] Medical Cente r Future Scheduled 1970 CT Colonography (combo) [facility] 00:00:00 [code = CT Colonography [facility] (combo)] Future Scheduled 1970 Screening for malignant [facility] 00:00:00 neoplasm of colon Medical Ce nter (procedure) [code = 140048418] Future Scheduled 1970 Screening for malignant [facility] 00:00:00 neoplasm of colon Medical Ce nter (procedure) [code = 415558363] Future Scheduled 1970 Sigmoidoscopy [code = [facility] 00:[facility] Sigmoidoscopy] Medical Cente r Future Scheduled 1970 CT Colonography (combo) [facility] 00:00:00 [code = CT Colonography [facility] (combo)] Future Scheduled 1970 Screening for malignant [facility] 00:00:00 neoplasm of colon Medical Ce nter (procedure) [code = 637114068] Future Scheduled 1970 Screening for malignant [facility] 00:00:00 neoplasm of colon Medical Ce nter (procedure) [code = 014845512] Future Scheduled 1970 Sigmoidoscopy [code = [facility] 00:[facility] Sigmoidoscopy] Medical Cente r Future Scheduled 1970 CT Colonography (combo) [facility] 00:00:00 [code = CT Colonography [facility] (combo)] Future Scheduled 1970 Screening for malignant [facility] 00:00:00 neoplasm of colon Medical Ce nter (procedure) [code = 133269809] Future Scheduled 1970 Screening for malignant [facility] 00:00:00 neoplasm of colon Medical Ce nter (procedure) [code = 811935960] Future Scheduled 1970 Sigmoidoscopy [code = [facility] 00:[facility] Sigmoidoscopy] Medical Cente r Future Scheduled 1970 CT Colonography (combo) [facility] 00:00:00 [code = CT Colonography [facility] (combo)] Future Scheduled 1970 Screening for malignant [facility] 00:00:00 neoplasm of colon Medical Ce nter (procedure) [code = 267339785] Future Scheduled 1970 Screening for malignant [facility] 00:00:00 neoplasm of colon Medical Ce nter (procedure) [code = 378540380] Future Scheduled 1970 Sigmoidoscopy [code = [facility] 00:[facility] Sigmoidoscopy] Medical Cente r Future Scheduled 1970 CT Colonography (combo) [facility] 00:00:00 [code = CT Colonography [facility] (combo)] Future Scheduled 1970 Screening for malignant [facility] 00:00:00 neoplasm of colon Medical Ce nter (procedure) [code = 661583053] Future Scheduled 1970 Screening for malignant [facility] 00:00:00 neoplasm of colon Medical Ce nter (procedure) [code = 097203247] Future Scheduled 1970 Sigmoidoscopy [code = [facility] 00:[facility] Sigmoidoscopy] Medical Angele r Future Scheduled 1970 CT Colonography (combo) [facility] 00:00:00 [code = CT [facility] ([facility])] Future Scheduled 1970 Screening for malignant [facility] 00:00:00 neoplasm of colon Medical Ce nter (procedure) [code = 908068040] Future Scheduled 1970 Screening for malignant [facility] 00:00:00 neoplasm of colon Medical Ce nter (procedure) [code = 960147307] Future Scheduled 1970 Sigmoidoscopy [code = [facility] [...] colon Medical Ce nter (procedure) [code = 464264407] Future Scheduled 1970 Screening for malignant [facility] 00:00:00 neoplasm of colon Medical Ce nter (procedure) [code = 589323996] Future Scheduled 1970 Sigmoidoscopy [facility]code [facility] S[facility]oscopy] Medical Cente r Encounters Start End Encounter Admission Attending Care Care Encounter Source Date/Time Date/Time Type Type Clinicians Facility Department ID 2021-06-25 Emergency [facility] [id number] Univers 05:25:12 ity of [facility] 2021-06-25 Emergency [facility] [id number] Univers 01:41:18 ity of [facility] 2021-06-24 Emergency [facility] [id number] Univers 22:38:17 ity of [facility] 2021-06-22 Emergency [facility] [id number] Univers 21:40:44 ity of [facility] 2021-06-22 Emergency [facility] [id number] Univers 13:55:03 ity of [facility] 2021-06-22 Emergency [facility] [id number] Univers 05:54:16 ity of [facility] 2021-06-21 Emergency [facility] [id number] Univers 22:33:24 ity of [facility] 2021-06-21 Emergency [facility] [id number] Univers 22:33:24 ity of [facility] 2021-06-21 Emergency [facility] [id number] Univers 22:22:08 ity of [facility] 2021-06-21 Emergency [facility] [id number] Univers 20:04:56 ity of [facility] 2021-06-21 Emergency [facility] [id number] Univers 19:53:56 ity of [facility] 2021-06-21 Emergency [facility] [id number] Univers 19:37:27 ity of [facility] 2021-06-21 Emergency [facility] [id number] Univers 19:36:41 ity of [facility] 2021-06-21 Emergency [facility] [id number] Univers 17:11:26 ity of [facility] 2021-06-21 Emergency [facility] [id number] Univers 16:44:38 ity of [facility] 2021-06-21 Emergency [facility] [id number] Univers 11:19:16 ity of [facility] 2021-06-21 Emergency [facility] [id number] Univers 10:16:06 ity of [facility] 2021-06-21 Emergency [facility] [id number] Univers 06:08:42 ity of [facility] 2021-06-21 Emergency [facility] [id number] Univers 04:43:23 ity of [facility] 2021-06-21 Emergency [facility] [id number] Univers 04:42:49 ity of [facility] 2021-06-20 [facility] [id number] Univers 18:31:02 OSMAR [facility] 2020-02-23 Inpatient HCAPM LENNY [id number] [facility] 18:42:00 89 [facility] 2020-02-17 Inpatient SEAN Nova, HCAPM BRET [id number] [facility] 00:22:00 Oladipo 75 [facility] 2020-01-05 Inpatient MORIS Perea, HCAPM [facility].01 [id number] [facility] 20:23:00 Mark 40 [facility] 2019-12-13 Inpatient HCAMN JULIA [id number] [facility] 17:52:00 47 [facility] 2023-03-20 2023-03-20 Emergency X ROBLEDO, [facility] ERT [id number] Univers 14:28:00 17:50:00 SABI ity [facility] 2023-03-20 2023-03-20 Emergency [facility] [id number] Univers 14:28:00 17:50:00 [facility] 350.1.13.10 it [place] [phone] [facility] 014 Branch (CLC) 2023-02-12 2023-02-12 Orders Doctor BERNARDO 1.2.840.114 [id number] Univers 00:00:00 00:00:00 Only Unassigned, MAGGY 350.1.13.10 ity of [place] HOSPITAL 4.2.7.2.686 Javi as [phone] [facility] 009 Branch 2023-02-02 2023-02-02 Outpatient R BIA PEDRO [facility] [id number] Univers 11:00:00 11:00:00 ity of [facility] 2023-01-29 2023-01-29 Transition MELANIE Vallejo 1.2.840.114 [id number] Univers 00:00:00 00:00:00 of Care Emili RECINOS 350.1.13.10 [place] [id number] [facility] 403 [address] 2023-01-27 2023-01-28 Inpatient Beau OCHOA [facility] CASSIE [id number] Univers 16:04:00 16:30:00 BERNARDO ithiram [facility] 2023-01-27 2023-01-28 Hospital MARGARITA Ochoa 1.2.840.114 [id number] Univers 16:04:00 16:30:00 Encounter Bernardo WINTER 350.1.13.10 ity [facility] 4.2.7.2.686 Javi as [phone] [place] 012122 Branch 2023-01-27 2023-01-27 Emergency EM Onicolas, HCACL AERS [id number] [facility] 08:58:00 14:58:00 Oluwadolapo 72 Cl [facility] 2023-01-26 2023-01-26 Emergency X LIDA [facility] ERT [id number] Univers 18:31:00 23:50:00 LAMONT atwood [facility] 2023-01-26 2023-01-26 [facility] [id number] Univers 18:31:00 23:50:00 [facility] 350.1.13.10 [place] [id number] ([facility]) 2022-12-22 2022-12-22 Outpatient BIA GIL [facility] [id number] Univers 11:15:00 11:15:00 ity [facility] 2022-12-19 2022-12-19 Patient Laura Turcios 1.2.840.114 [id number] Univers 00:00:00 00:00:00 Outreach RECINOS 350.1.13.10 i [place] [id number] [facility] 403 Branch 2022-12-14 2022-12-14 Emergency X STACEY SHARP [facility] ERT [id number] Univers 16:44:00 19:27:00 STACEY SHARP [facility] 2022-12-14 2022-12-14 Emergency Salvador, TRAUMA 1.2.840.114 [id number] Univers 16:44:00 19:27:00 [facility] 350.1.13.10 [place] [id number] [facility] 014 Branch 2022-12-10 2022-12-10 Patient Laura Turcios MELANIE 1.2.840.114 [id number] Univers 00:00:00 00:00:00 Outreach GRISEL 350.1.13.10 i [place] [id number] [facility] 403 [address] 2022-12-10 2022-12-10 Transition MELANIE Vallejo 1.2.840.114 [id number] Univers 00:00:00 00:00:00 of Care Emili TRINIDADY 350.1.13.10 [place] [id number] [facility] 403 [address] 2022-11-27 2022-12-09 Inpatient U [facility] [id number] Univers 08:00:00 17:36:00 ity of [facility] 2022-11-27 2022-12-09 Hospital Dwain Junior 1.2.8 40.114 [id number] Univers 08:00:00 17:36:00 Encounter Bharat Medrano 350.1.1 3.10 ity of [facility] 4.2.7.2.686 [place] [id number] [facility] 091 Branch 2022-12-04 2022-12-04 Surgery [facility] MARGARITA 1.2.840.114 10 [id number] Univers 11:18:00 16:48:00 MAGGY 350.1.13.10 it y of HOSPITAL 4.2.7.2.686 Javi as [id number] [facility] 103 Branch 2022-11-25 2022-11-25 Transition MELANIE Mei 1.2.840.114 10 [id number] Univers 00:00:00 00:00:00 of Care Sandy TRINIDADY 350.1.13.10 i [place] [id number] [facility] 403 [address] 2022-11-24 2022-11-24 Patient Laura Turcios MELANIE 1.2.840.114 [id number] Univers 00:00:00 00:00:00 Outreach RECINOS 350.1.13.10 [place] [id number] [address] 2022-11-19 2022-11-22 Inpatient X [facility]GAR [facility] [id number] Univers 09:51:00 14:07:00 CHRISTENAER it y of [facility] 2022-11-19 2022-11-22 [facility] Constantin Perez 1.2.840. 114 [id number] Univers 09:51:00 14:07:00 Encounter Edgar Montserrat WINTER 350.1.13 .10 ity [facility] 4.2.7.2.686 Javi as [id number] [facility] 095 Branch 2022-11-21 2022-11-21 Transition MELANIE Vallejo 1.2.840.114 [id number] Univers 00:00:00 00:00:00 of Care Emili RECINOS 350.1.13.10 [place] [id number] [address] 2022-11-07 2022-11-07 Transition MELANIE Valdes 1.2.840.114 [id number] Univers 00:00:00 00:00:00 of Care Miryam RECINOS 350.1.13.10 [place] [id number] [address] 2022-11-02 2022-11-06 Inpatient X ALEXIS [facility] URI [id number] Univers 07:47:00 13:27:00 BHARAT ithiram of [facility] 2022-11-02 2022-11-06 [facility] Mariaelena Gordillo 1.2.840. 114 [id number] Univers 07:47:00 13:27:00 Encounter Bharat Medrano 350.1.1 3.10 ity of [facility] 4.2.7.2.686 Jvai as [phone] [facility] 095 Branch 2022-10-28 2022-10-28 Telephone [facility] 1.2.840.114 [id number] Univers 00:00:00 00:00:00 Orpheus [facility] HE[facility] 350.1.13.10 it[place] - [phone] [facility] 408 [address] 2022-10-28 2022-10-28 [facility] 1.2.840.114 [id number] Univers 00:00:00 00:00:00 (Out) [facility] SPECIALTY 350.1.13.10 ity of Gastroenter CARE 4.2.7.2.686 [facility] AT [id number] Ut abundioadalberto SAUCEDO [address] [facility] 2022-10-27 2022-10-27 Outpatient R [facility] [id number] Univers 14:00:00 14:00:00 ORPHEUS ity of [facility] 2022-10-22 2022-10-22 Telephone [facility] 1.2.840.114 10 [id number] Univers 00:00:00 00:00:00 Orpheus HEALTH 350.1.13.10 ity of CANCER 4.2.7.2.686 [facility] - [id number] Med [facility] 408 [address] 2022-10-19 2022-10-19 Emergency X IBIKUNLE, [facility] ERT [id number] Univers 19:16:00 22:32:00 FOLUSHO ity of [facility] 2022-10-19 2022-10-19 Emergency Ibikunle, TRAUMA 1.2.840.114 [id number] Univers 19:16:00 22:32:00 Folusho F CENTER 350.1.13.10 [place] [id number] [facility] 014 Branch 2022-05-22 2022-05-22 Transition MELANIE Vallejo 1.2.840.114 [id number] Univers 00:00:00 00:00:00 of Care Emili RECINOS 350.1.13.10 [place] [id number] [facility] 403 Branch 2022-05-19 2022-05-21 Inpatient X LINDA [facility] URI [id number] Univers 19:15:00 15:48:00 PATEL ity [facility] 2022-05-19 2022-05-21 [facility] Joel Baez [facility] 1.2.840. 114 [id number] Univers 19:15:00 15:48:00 Encounter Eros Rios 350.1.13.10 ity of Patel Rangel CHARLES 4.2.7.2.686 [facility] [id number] [facility] 080 Branch 2022-05-21 2022-05-21 Patient Saira Goodman MELANIE 1.2.840.114 [id number] Univers 00:00:00 00:00:00 Outreach E GRISEL 350.1.13.10 i ty of [place] [id number] [facility] 403 [address] 2022-04-14 2022-04-14 Transition MELANIE Valdes 1.2.840.114 [id number] Univers 00:00:00 00:00:00 of Care Miryam RECINOS 350.1.13.10 it [place] [id number] [address] 2022-04-09 2022-04-10 Emergency X [facility] ERT [id number] Univers 20:38:00 00:14:00 ALVAREZ ity of [facility] 2022-04-09 2022-04-10 Emergency [facility] 1.2.840.114 [id number] Univers 20:38:00 00:14:00 Alvarez OROPEZA 350.1.13.10 ity of [place] [id number] [facility] [address] 2022-04-09 2022-04-09 Transition MELANIE Valdes 1.2.840.114 [id number] Univers 00:00:00 00:00:00 of Care Miryam RECINOS 350.1.13.10 it y of [place] 4.2.7.2.686 [facility] [id number] [place] [address] [address] 2022-04-02 2022-04-08 Inpatient X [facility] URI [id number] Univers 11:42:00 12:30:00 rai LAUGHLIN [facility] 2022-04-02 2022-04-08 Hospital Rekha Sheehan [facility] 1.2.840.11 [id number] Univers 11:42:00 12:30:00 Encounter Juventino Thomas [facility] 350.1.13.10 ity of [facility] LambertDiogo 4.2.7.2.686 [place] [phone] [address] ([facility]) 2022-03-29 2022-03-29 Emergency EM Bridgett, HCACL AERS [id number] [facility] 14:26:00 16:45:00 Sabi Adams [facility] 2022-03-29 2022-03-29 Emergency EM Bridgett, HCACL HCACL [id number] [facility] 14:26:00 16:45:00 Sabi [address]86 [facility] 2022-03-25 2022-03-26 Inpatient E RICHARD [facility] MED 7503 BL 13:38:00 10:16:00 , YESSI 2022-03-15 2022-03-18 Emergency E RADHA [facility] MED 7502 [facility] 13:36:00 18:59:00 JULIO 2022-03-13 2022-03-13 Emergency MOE JAMIE 1.2.840.114 [id number] Lynne 15:33:00 20:25:00 GENERAL 350.1.13.43 [facility] .2.7.2.6869 [id number] 2812-07-21 2022-03-13 Outpatient RONALD [facility] [id number] Maged 00:00:00 00:00:00 [facility] [employer] 2022-03-06 2022-03-09 [facility] Aryan Choi [facility] 1 [id number] [facility] 12:16:00 12:55:00 Encounter Norma Montalvo [facility] Shiela, Romie [facility]ara [facility] Leonidas Joyner Colin 2022-03-06 2022-03-09 Inpatient ER LEONIDAS JOYNER Emergency [id number] [facility] 12:16:00 12:55:00 2022-03-06 2022-03-[address] [facility] [id number] 00:00:00 00:00:00 Only [facility] 2022-03-06 2022-03-[address] [facility] [id number] [facility] 00:[facility] 00:00:00 [facility] 2022-02-18 2022-02-20 Emergency Mitzi Carbajal MOE RINALDIB 1.2.8 40.114 [id number] Ava 13:58:00 11:55:00 Alona Calvert GENERAL 350.1.13.43 [facility] .2.7.2.6869 Fannie Blake [id number] 0366-06-28 2022-02-18 Emergency [facility] [id number] Ava 15:19:05 15:23:18 [facility] 2022-02-18 2022-02-18 Outpatient 1 TEJAS [facility] [id number] Ava 13:58:00 13:58:00 [facility] 2022-02-18 2022-02-[address] 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 [place] MOE JAMIE 1.2.840.1 14 [id number] Ava 13:40:00 13:22:00 Encounter Daily Islas GENERAL 350.1.13.43 [facility] .2.7.2.6869 [id number] 0689-06-17 2022-02-07 Outpatient 1 DAILY ISLAS [facility] [id number] Ava 13:40:00 13:40:00 [facility] 2022-01-30 2022-01-30 Emergency SEAN Pacheco [facility] [id number] [facility] 17:02:00 18:29:00 Dwain 53 [facility] 2022-01-30 2022-01-30 Emergency SEAN Pacheco [facility] [id number] [facility] 17:02:00 18:29:00 Dwain [id number] [facility] 2022-01-22 2022-01-[address] [facility] [id number] Lynne 17:24:00 20:39:00 [facility] 2022-01-16 2022-01-21 Emergency VeronicaRaymon [facility] [id number] Lynne 11:04:00 18:08:00 Karin Bassett [facility] Sushil Loera Parth P 2022-01-19 2022-01-19 Outpatient [facility] [id number] Ava 12:34:08 13:29:31 [facility] 2022-01-16 2022-01-16 Outpatient [facility] [id number] Ava 19:42:28 20:01:28 [facility] 2022-01-16 2022-01-16 Outpatient [facility] [id number] Ava 11:04:00 11:04:00 KARIN Daniels 2022-01-10 2022-01-11 Emergency Brianna Bert [facility] [id number] Ava 10:58:00 11:20:[address] [facility] Merissa Richards 2022-01-10 2022-01-10 Outpatient 1 [facility] [id number] Ava 10:58:00 10:58:00 [facility] [address] 2022-01-08 2022-01-[address] [facility] [id number] Ava 17:57:00 02:50:00 [facility] 2022-01-08 2022-01-08 Emergency [facility] [id number] Lynne 21:40:34 21:50:19 [facility] 2021-09-23 2021-09-23 Emergency EM Raffaele Levi [facility] AERS [id number] [facility] 19:35:00 21:10:00 74 [facility] 2021-09-13 2021-09-13 Emergency X ROSHAN RAMOS [facility] [id number] Univers 21:20:00 22:36:00 MICKEY atwood [facility] 2021-09-13 2021-09-13 Emergency Harkey, [facility] 1.2.296.508 [id number] Univers 21:20:00 22:36:00 Mickey A [facility] 350.1.13.10 it y of [place] [phone] [address] ([facility]) 2021-09-13 2021-09-13 Emergency EM Raffaele Levi HCACL AERS [id number] [facility] 14:57:00 16:37:00 06 [facility] 2021-09-12 2021-09-12 Emergency X MORRICAL, [facility] ERT [id number] Univers 14:25:00 17:51:00 DWAIN hiram [facility] 2021-09-12 2021-09-12 Emergency Morrical, TRAUMA 1.2.840.114 [id number] Univers 14:25:00 17:51:00 Dwain [facility] 350.1.13.10 [place] [id number] [address] 2021-09-12 2021-09-12 Emergency X JAMEY [facility] ERT [id number] Univers 06:20:00 10:10:00 CONSTANTIN [facility] 2021-09-12 2021-09-12 Emergency Alona Carty TRAUMA 1.2.840 .114 [id number] Univers 06:20:00 10:10:00 Constantin Concepcion KITE 350.1.13.10 [place] [id number] [address] 2021-09-08 2021-09-09 Emergency X YINA, [facility] ERT [id number] Univers 23:01:00 01:30:00 SEBASTIAN ity [facility] 2021-09-08 2021-09-09 Emergency Pacheco, TRAUMA 1.2.142.233 [id number] Univers 23:01:00 01:30:00 Sebastian [facility] 350.1.13.10 [place] [id number] [address] 2021-09-07 2021-09-07 [facility] E[facility] [id number] Univers 19:24:00 23:44:00 SEBASTIAN ity of [facility] 2021-09-07 2021-09-07 Emergency Pacheco, TRAUMA 1.2.963.352 [id number] Univers 19:24:00 23:44:00 Sebastian [facility] 350.1.13.10 [place] [id number] [facility] [address] 2021-09-06 2021-09-06 Emergency [facility] ERT [id number] Univers 15:35:00 17:52:00 SEBASTIAN ity of [facility] 2021-09-06 2021-09-06 Emergency Pacheco, TRAUMA 1.2.980.263 [id number] Univers 15:35:00 17:52:00 Sebastian [facility] 350.1.13.10 it[place] [id number] [facility] [address] 2021-09-06 2021-09-06 Transition AMANDA VallejoEddie 1.2.840.114 [id number] Univers 00:00:00 00:00:00 of Care Emili RECINOS 350.1.13.10 ity of [place] [id number] [facility] [address] 2021-08-30 2021-09-05 Inpatient X MAYELA [facility] CASSIE [id number] Univers 16:53:00 16:00:00 ity of [facility] 2021-08-30 2021-09-05 Hospital Gayatri Gu 1 .2.840.114 [id number] Univers 16:53:00 16:00:00 Encounter Sophia Andrea 350.1 .13.10 ity of [facility] 4.2.7.2.686 [facility] [id number] [place] [address] [address] 2021-09-03 2021-09-03 Surgery [facility] MARGARITA 1.2.840.114 [id number] Univers 07:15:00 10:04:00 MAGGY 350.1.13.10 it y of [facility] 4.2.7.2.686 Javi as [id number] [facility] [address] 2021-08-29 2021-08-29 Emergency X GEOVANNA, [facility] ERT [id number] Univers 17:15:00 20:03:00 FOLUSHO ity of [facility] 2021-08-29 2021-08-29 Emergency Ibikunle, TRAUMA 1.2.840.114 [id number] Univers 17:15:00 20:03:00 [facility] 350.1.13.10 [place] [id number] [facility] [address] 2021-07-29 2021-08-05 Inpatient X [facility] CASSIE [id number] Univers 20:15:00 07:43:00 ity of [facility] 2021-07-29 2021-08-05 [facility] Jonah Rees 1.2.840.1 14 [id number] Univers 20:15:00 07:43:00 Encounter Karin Myers 350.1.13.1 0 ity of [facility] 4.2.7.2.686 [place] [id number] [facility] [address] 2021-07-29 2021-07-29 Transition MELANIE Vallejo 1.2.840.114 [id number] Univers 00:00:00 00:00:00 of Care Emili RECINOS 350.1.13.10 it[place] of [place] [id number] [facility] [address] 2021-07-27 2021-07-27 Emergency EM Kateryna, HCAMN JULIA [id number] [facility] 10:15:00 12:36:00 Juan Jose [address] [place] [address] 2021-07-23 2021-07-26 Inpatient X [facility] CASSIE [id number] Univers 00:39:00 14:50:00 ity of [facility] 2021-07-23 2021-07-26 [facility] Sabi Schultz 1.2.840 .114 [id number] Univers 00:39:00 14:50:00 Encounter Bia Pedro 350.1.13.10 ity of HOSPITAL 4.2.7.2.686 Javi as [id number] [facility] [address] 2021-07-22 2021-07-22 Emergency EM Marcel[facility] [id number] [facility] 04:25:00 08:20:00 Tarrell 74 [facility] 2021-06-27 2021-06-27 Emergency EM White, [facility] AERS [id number] [facility] 15:31:00 17:37:00 Sabi 17 [facility] 2021-06-25 2021-06-25 Orders Doctor BERNARDO 1.2.840.114 [id number] Univers 00:00:00 00:00:00 Only Unassigned, MAGGY 350.1.13.10 ity of [place] HOSPITAL 4.2.7.2.686 Javi as [id number] [facility] [address] 2021-05-31 2021-06-04 Emergency Willie Garrett [facility] 1.2.840.1 14 [id number] Univers 17:10:00 16:38:00 Clementine [facility] 350.1.13.10 ity of Sabi Gann 4.2.7.2.686 [place] Tamika Lyle B[place] [phone] [address] ([facility]) 2021-05-20 2021-05-21 Emergency Bernardo Donnelly [facility] 1.2.840.114 [id number] Univers 14:29:00 17:10:00 Naylor[facility] silva [facility] 350.1.13.10 ity [place] [id number] [address] ([facility]) 2021-05-10 2021-05-10 Transition Melanie Vallejo 1.2.840.114 [id number] Univers 00:00:00 00:00:00 of Care Emili Recinos 350.1.13.10 ity of [place].2.7.2.[place] [id number] [facility] [address] 2021-05-07 2021-05-09 Hospital Alona Pérez [facility] 1.2.840.11 [id number] Univers 19:23:00 15:26:00 Encounter Diogo Keane 350.1.13. 10 ity of Abad Watson [place] 4.2.7.2.686 [place] Bhatt [id number] [facility] [address] ([facility]) 2021-04-28 2021-05-01 Inpatient SEAN Leonard [facility] [id number] [facility] 21:05:00 14:18:00 Christopher 03 [facility] 2020-09-26 2020-09-26 Emergency Jose [facility] 1.2.111.428 [id number] Univers 16:56:00 23:00:00 Mariaelena Oropeza 350.1.13.10 i ty of [place].2.[place] [phone] [facility] [address] 2020-08-22 2020-08-24 Emergency Funmilayo Pinzon [facility] 1.2.8 40.114 [id number] Univers 15:31:00 14:20:00 SweeneyBart malik Health 350.1.13.10 ity of Ori Persaud [place] 4.2.7.2.686 [place] Bhatt [id number] [facility] [address] ([facility]) 2020-07-09 2020-07-09 Emergency Henna [facility] 1.2.840.114 [id number] Univers 16:23:00 19:43:00 , Juan M Health 350.1.13.10 ity [place] [phone] [facility] [address] ([facility]) 2020-06-15 2020-06-15 Patient Saira Goodman 1.2.840.114 [id number] Univers 00:00:00 00:00:00 Outreach E Recinos 350.1.13.10 i ty of [place].2.[place] [id number] [facility] [address] 2020-06-12 2020-06-12 Patient Saira Goodman 1.2.840.114 [id number] Univers 00:00:00 00:00:00 Outreach E Ercinos 350.1.13.10 i ty of [place] [id number] [address] 2020-06-08 2020-06-08 Patient Melanie Emanuel 1.2.840.114 [id number] Univers 00:00:00 00:00:00 Outreach Mela Arvizu Recinos 350.1.13.10 ity of [place] [id number] [address] 2020-06-07 2020-06-07 Patient Saira Goodman 1.2.840.114 [id number] Univers 00:00:00 00:00:00 Outreach E Recinos 350.1.13.10 i ty of [place] [id number] [address] 2020-06-05 2020-06-05 Emergency [facility] 1.2.840.114 [id number] Univers 06:47:00 10:55:00 More Oropeza 350.1.13.10 ity of [place] 4.[place].2.[place] [id number] [facility] [address] 2020-06-04 2020-06-04 Emergency [facility] 1.2.724.087 [id number] Univers 10:36:00 13:38:00 [facility] 350.1.13.10 it y [place] [phone] [facility] [address] ([facility]) 2020-06-04 2020-06-04 Patient Saira Goodman 1.2.840.114 [id number] Univers 00:00:00 00:00:00 Outreach E Recinos 350.1.13.10 i ty [place] [id number] [address] 2020-06-04 2020-06-04 Patient Melanie Emanuel 1.2.840.114 [id number] Univers 00:00:00 00:00:00 Outreach Mela W Recinos 350.1.13.10 ity of [place] [id number] [address] 2020-06-01 2020-06-01 Transition Melanie Vallejo 1.2.840.114 [id number] Univers 00:00:00 00:00:00 of Care Emili Recinos 350.1.13.10 ity of [place] [id number] [address] 2020-05-22 2020-05-31 [facility] Alex Lopez 1.2.840.11 4 [id number] Univers 14:42:00 18:40:00 Encounter LeonardoctaviaGriffina Maggy 350.1.13.10 ity of Hospital 4.2.7.2.686 [place]avi as [phone] [place] 012128 [place] 2020-05-31 2020-05-31 Patient Saira Goodman Melanie 1.2.840.114 [id number] Univers 00:00:00 00:00:00 Outreach E Recinos 350.1.13.10 i ty [place] [id number] [address] 2020-05-23 2020-05-23 Patient Saira Goodmaneddie 1.2.840.114 78 [id number] Univers 00:00:00 00:00:00 Outreach E Recinos 350.1.13.10 i ty [place] [id number] [address] 2020-05-23 2020-05-23 Patient Saira Goodmaneddie 1.2.840.114 [id number] Univers 00:00:00 00:00:00 Outreach E Recinos 350.1.13.10 i ty [place] [id number] [address] 2020-05-23 2020-05-23 Patient Jenae, Melanie 1.2.840.114 [id number] Univers 00:00:00 00:00:00 Outreach Mela Trinidady 350.1.13.10 ity of [place] 4[place].7.2.[place] [id number] [address] 2020-05-21 2020-05-21 Emergency Donnelly, [facility] 1.2.905.134 [id number] Univers 20:52:00 23:41:00 [facility] 350.1.13.10 it y of [place] [phone] [address] ([facility]) 2020-05-20 2020-05-20 Emergency Unknown, TRAUMA 1.2.840.114 [id number] Univers 07:04:00 15:13:00 Attending CENTER 350.1.13.10 it[place] [id number] [address] 2020-05-19 2020-05-20 Emergency [facility], [facility] 1.2.840.114 [id number] Univers 21:29:00 06:12:00 [facility] 350.1.13.10 it y of [place] [phone] [address] ([facility]) 2020-05-18 2020-05-18 Patient Saira Goodman Melanie 1.2.840.114 [id number] Univers 10:18:59 11:28:59 Outreach Heidi Recinos 350.1.13.10 i ty of [place]2.7.2.[place] [id number] [address] 2020-05-18 2020-05-18 Patient Melanie Emanuel 1.2.840.114 [id number] Univers 00:00:00 00:00:00 Outreach Mela Trinidady 350.1.13.10 ity of [place] 4[place]2.[place].2.[place] [id number] [address] 2020-05-17 2020-05-17 Patient Saira Goodman Melanie 1.2.840.114 [id number] Univers 00:00:00 00:00:00 Outreach Heidi Recinos 350.1.13.10 i ty of [place] [id number] [address] 2020-05-17 2020-05-17 Patient Jenae Melanie 1.2.840.114 [id number] Univers 00:00:00 00:00:00 Outreach Mela Arvizu Recinos 350.1.13.10 ity of [place] [id number] [address] 2020-05-15 2020-05-15 Patient Melanie Emanuel 1.2.840.114 [id number] Univers 00:00:00 00:00:00 Outreach Mela Arvizu Recinos 350.1.13.10 ity of [place] [id number] [address] 2020-05-14 2020-05-14 Transition Melanie Vallejo 1.2.840.114 [id number] Univers 00:00:00 00:00:00 of Care Emili Recinos 350.1.13.10 ity of [place] 4[place]2.[place] [id number] [address] 2020-05-04 2020-05-12 [facility] Lora Hall 1.2. 840.114 [id number] Univers 21:09: 14:03:00 Encounter Carol Ann Jason 350.1.13.10 ity of Hospital 4.2.7.2.686 Javi as [phone] [address] 2020-05-10 2020-05-10 Patient Saira Goodman Melanie 1.2.840.114 [id number] Univers 00:00:00 00:00:00 Outreach E Recinos 350.1.13.10 i ty [place] [id number] [address] 2020-05-09 2020-05-09 Transition Melanie Vallejo 1.2.840.114 [id number] Univers 00:00:00 00:00:00 of Care Emili Recinos 350.1.13.10 ity of [place]7.2.[place] [id number] [address] 2020-05-08 2020-05-08 Patient Saira Goodman Melanie 1.2.840.114 [id number] Univers 00:00:00 00:00:00 Outreach E Recinos 350.1.13.10 i ty of [place].7.2.[place] [id number] [facility] [address] 2020-05-02 2020-05-03 Emergency [facility] 1.2.953.573 [id number] Univers 23:37:00 01:53:00 Joel S Johnna 350.1.13.10 ity of [place] 4[place].2.[place] [id number] [facility] [address] 2020-05-03 2020-05-03 Patient Saira Goodman 1.2.840.114 78 [id number] Univers 00:00:00 00:00:00 Outreach E Recinos 350.1.13.10 i ty of [place].2.[place] [id number] [facility] [address] 2020-05-03 2020-05-03 Transition Melanie Vallejo 1.2.840.114 [id number] Univers 00:00:00 00:00:00 of Care Emili Recinos 350.1.13.10 ity of [place].2.[place] [id number] [facility] [address] 2020-03-30 2020-05-02 Hospital Alex Lopez 1.2.840.11 4 [id number] Univers 16:55:00 16:45:00 Encounter Diogo Keane 350.1.13. 10 ity of [facility] 4.2.7.2.686 [place] [phone] [facility] [address] 2020-04-06 2020-04-06 Anesthesia Dana Sampson 1.2.8 40.114 [id number] Univers 09:10:00 11:29:00 Cynthia Herring 350.1.1 3.10 ity of [facility] 4.2.7.2.686 Javi as [phone] [facility] [address] 2020-03-29 2020-03-29 Transition Melanie Vallejo 1.2.840.114 [id number] Univers 00:00:00 00:00:00 of Care Emili Recinos 350.1.13.10 ity of [place].2.[place] [id number] [facility] [address] 2020-03-25 2020-03-28 Hospital Bernardo Donnelly [facility] 1.2.840.114 [id number] Univers 19:12:00 18:43:00 Encounter Sarah [facility] 350.1.13.1 0 ity [place] [id number] [facility] [address] ([facility]) 2020-03-07 2020-03-07 Transition Melanie Vallejo 1.2.840.114 [id number] Univers 00:00:00 00:00:00 of Care Emili Recinos 350.1.13.10 ity of [place] [id number] [address] 2020-03-02 2020-03-05 [facility] Sabi Robledo [facility] 1.2.840.11 [id number] Univers 19:53:34 17:23:00 Encounter Eliu [facility] 350.1.13.10 ity of Sarah [place] 4.2.7.2.686 [place] Bhat[place] [id number] [facility] [address] ([facility]) 2020-02-29 2020-02-29 Transition Melanie Vallejo 1.2.840.114 [id number] Univers 00:00:00 00:00:00 of Care Emili Recinos 350.1.13.10 ity of [place].2.[place] [id number] [facility] [address] 2020-02-26 2020-02-27 Hospital Juventino Mccabe 1.2.840.11 [id number] Univers 04:55:41 19:20:00 Encounter Bia Pedro 350.1.13.10 ity of [facility] 4.2.7.2.686 Javi as [id number] [facility] [address] 2020-02-27 2020-02-27 Patient Saira Goodman Melanie 1.2.840.114 [id number] Univers 00:00:00 00:00:00 Outreach E Recinos 350.1.13.10 i ty of [place].7.2.[place] [id number] [facility] [address] 2020-02-25 2020-02-26 Emergency Robledo, [facility] 1.2.219.475 [id number] Univers 21:25:58 03:55:00 Sabi Health 350.1.13.10 it y [place] [id number] [facility] 014 [address] ([facility]) 2020-02-24 2020-02-24 Outpatient Eliazar, HCACL LABO [id number] [facility] 07:51:00 07:51:00 Mark 96 [facility] 2020-02-18 2020-02-18 Outpatient Avtar, [facility] LABO [id number] [facility] 00:26:00 00:26:00 Oladipo 05 [facility] 2020-02-07 2020-02-07 Transition Melanie Vallejo 1.2.840.114 [id number] 00:00:00 00:00:00 of Care Emili Recinos 350.1.13.10 [place] 4.2.7.2.686 [id number] [facility] 2020-02-07 2020-02-07 Transition Melanie Vallejo 1.2.840.114 [id number] Univers 00:00:00 00:00:00 of Care Emili Recinos [id number] ity [place]7.2.[place] [phone] [place] [address] [address] 2020-01-28 2020-02-05 [facility] Bernardo Donnelly [facility] 1.2.840.114 [id number] 18:12:56 15:12:00 Encounter Jenniferteetee [facility] [id number] Sarah [place] 4.2.7.2.686 [place] [phone] [place] [address] ([facility]) 2020-01-28 2020-02-05 Inpatient X SIMIN MTSONAM URI [id number] Univers 18:12:56 15:12:00 RADHESHYAM ity of [facility] 2020-01-28 2020-02-05 [facility] Andrzej [facility] 1.2.840.114 [id number] Univers 18:12:56 15:12:00 Encounter [facility] [id number] ity of David Du[place] 4.2.7.2.686 [facility] [id number] [facility] [address] ([facility]) 2020-01-24 2020-01-26 Emergency Sabi Robledo [facility] 1.2.840.1 14 [id number] Univers 18:46:34 19:35:00 [facility] [id number] ity of Felix Duvalhyam [place] 4.2.7.2.686 [facility] [id number] [facility] [address] ([facility]) 2020-01-24 2020-01-26 Outpatient X SIMIN [facility] [id number] Univers 18:46:34 19:35:00 RADHESHYAM ity of [facility] 2020-01-24 2020-01-26 Emergency RobledoSabi simons [facility] 1.2.840.1 14 [id number] 18:46:34 19:35:00 [facility] 350.1.13.10 Felix Duvalhyam Clear 4.2.7.2.686 [place] [id number] [facility] 109 ([facility]) 2020-01-05 2020-01-05 Outpatient Perea, MASONCL OUTD [id number] [facility] 23:52:00 23:52:00 [facility] 2019-12-28 2019-12-28 Orders Doctor BERNARDO 1.2.840.114 [id number] Univers 00:00:00 00:00:00 Only Unassigned, MAGGY 350.1.13.10 ity of [facility] 4.2.7.2.686 Javi as [phone] [facility] [address] 2019-12-28 2019-12-28 Orders Doctor BERNARDO 1.2.840.114 [id number] 00:00:00 00:00:00 Only Unassigned, MAGGY 350.1.13.10 May [facility] 4.2.7.2.686 [id number] 2019-12-12 2019-12-12 Emergency [place], TRAUMA 1.2.098.246 [id number] [facility] 21:02:30 23:20:00 [facility] 350.1.13.10 i ty of 4.2.7.2.686 Ara lopez [id number] [address] 2019-12-12 2019-12-12 Emergency [place], TRAUMA 1.2.925.275 [id number] 21:02:30 23:20:00 [facility] 350.1.13.10 4.2.7.2.686 [id number] 014 2017-11-02 2017-11-02 Emergency E [facility] MED [id number] [address] 08:33:00 08:33:00 [facility] 2017-08-05 2017-08-05 Outpatient [facility] [id number] 36 [place] 00:00:00 00:00:00 [facility] 2017-07-28 2017-07-28 Outpatient [facility] [id number] Ava 00:00:00 00:00:00 [facility] 2017-06-24 2017-06-24 Outpatient [facility] [id number] Ava 00:00:00 00:00:00 [facility] 2017-06-22 2017-06-22 Emergency [facility] [id number] Ava 21:37:29 21:37:29 [facility] 2017-06-22 2017-06-[address] [facility] MED [id number] Ava 21:06:00 21:06:00 [facility] 2017-06-22 2017-06-22 Outpatient [facility] [id number] Ava 10:02:31 10:02:31 [facility] 2017-06-09 2017-06-09 Outpatient [facility] [id number] Ava 00:00:00 00:00:00 [facility] 2017-06-09 2017-06-09 Outpatient [facility] [id number] Ava 00:00:00 00:00:00 [facility] 2017-05-08 2017-05-[address] [facility] MED [id number] [place] 01:04:44 01:04:44 [facility] 2017-05-05 2017-05-05 Emergency E [facility] MED [id number] [address] 08:11:00 08:11:00 [facility] 2017-04-15 2017-04-15 Emergency E [facility] MED [id number] [address] 09:53:00 09:53:00 [facility] 2017-04-14 2017-04-14 Outpatient [facility] [id number] Ava 13:31:02 13:31:02 Health Results Test Description Test Time Test Comments Results Result Comments Source Lactic Acid Whole Blood 2023-03-20 20:47:35 Test Item Value Reference Range Interpretation Comme nts LACTIC ACID (test code = 5623238425) 1.00 mmol/L 0.50-2.20 Lab Interpretation (test code = 96359-2) Normal [facility] [id number] 04:07:33 Test Item Value Reference Range Interpretation Comments HGB A1C (test code = 5.1 % 4.0-5.7 4548-4) GILBERTO (test code = GILBERTO) Reference RangesNormal: <5.7%Prediabetes: 5.7 - 6.4%Diabetes: > 6.5% Lab Interpretation (test Normal code = 16546-6) [facility] (NA, K, CL, CO2, GLUCOSE, BUN, CREATININE, CA)2023-01-27 23:24:10 Test Item Value Reference Range Interpretation Comments NA (test code = 135 mmol/L 135-145 3128996970) K (test code = 3.4 mmol/L 3.5-5.0 L 9809946957) CL (test code = 105 mmol/L 98-108 0692904587) CO2 TOTAL (test code = 19 mmol/L 23-31 L 8133091217) AGAP (test code = 11 2-16 3655650667) BUN (test code = 20 mg/dL 7-23 0229565820) GLUCOSE (test code = 84 mg/dL 70-110 2025367614) CREATININE (test code = 1.09 mg/dL 0.60-1.25 1700312503) CALCIUM (test code = 8.5 mg/dL 8.6-10.6 L 5980764825) eGFR (test code = 71.0 mL/min/1.73m2 5844980482) GILBERTO (test code = GILBERTO) Association of [...] tests). Lab Interpretation Abnormal (test code = 34894-9) [facility] America[facility]AT[facility] FUNCTION PANEL (73417) (ALB,T.PRO,BILI T,BU/BC,ALT,AST,ALK PHOS)2023-01-27 23:24:10 Test Item Value Reference Range Interpretation Comments TOTAL BILI (test code = 1253704679) 0.7 mg/dL 0.1-1.1 BILI UNCON (test code = 8322826284) 0.5 mg/dL 0.1-1.1 BILI CONJ (test code = 7932657425) 0.0 mg/dL 0.0-0.3 T PROTEIN (test code = 1162443320) 6.0 g/dL 6.3-8.2 L ALBUMIN (test code = 4845525257) 3.5 g/dL 3.5-5.0 ALK PHOS (test code = 4625373725) 64 U/L 34-122 ALTv (test code = 1742-6) 17 U/L 5-50 AST(SGOT) (test code = 3870993251) 37 U/L 13-40 Lab Interpretation (test code = Abnormal 39734-6) [facility] AmericaPhosphorus [id number] 23:24:10 Test Item Value Reference Range Interpretation Comments PHOSPHORUS (test code = 7810154748) 3.4 mg/dL 2.5-5.0 Lab Interpretation (test code = Normal 84019-3) [facility] WITH [id number] 22:54:46 Test Item Value Reference Range Interpretation Comments WBC (test code = 5.12 See_Comment [Automated 6690-2) message] The sy stem which generated this result transmitted reference range : 4.20 - 10.70 10*3/?L. The reference range was not used to interpret this result as normal/abnormal . RBC (test code = 3.88 See_Comment L [Automated 789-8) message] The sy [...] RDW-SD (test code = 49.4 fL 38.5-51.6 52020-5) RDW-CV (test code = 15.5 % 12.1-15.4 H 788-0) PLT (test code = 226 See_Comment [Automated 777-3) message] The sy stem which generated this result transmitted reference range : 150 - 328 10*3/ ?L. The reference r meredith was not used to interpret this result as normal/abnormal . MPV (test code = 9.8 fL 9.8-13.0 44255-1) NRBC/100 WBC (test 0.0 See_Comment [Automat ed code = 2626323495) message] The system which generated this result transmitted reference range : 0.0 - 10.0 /100 WBCs. The refer ence range was not u sed to interpret th is result as normal/abnormal . NRBC x10^3 (test code See_Comment [Auto mated = 4700411460) message] The s ystem which generated this result transmitted reference range : 10*3/?L. The reference range was not used to interpret this result as normal/abnormal . GRAN MAT (NEUT) % 55.3 % (test code = 770-8) IMM GRAN % (test code 0.60 % = 1868058423) LYMPH % (test code = 31.6 % 736-9) MONO % (test code = 9.8 % 5905-5) EOS % (test code = 2.1 % 713-8) BASO % (test code = 0.6 % 706-2) GRAN MAT x10^3(ANC) 2.83 10*3/uL 1.99-6.95 (test code = 1077482909) IMM GRAN x10^3 (test 0.03 10*3/uL 0.00-0.06 code = 8167259485) LYMPH x10^3 (test code 1.62 10*3/uL 1.09-3.23 = 731-0) MONO x10^3 (test code 0.50 10*3/uL 0.36-1.02 = 742-7) EOS x10^3 (test code = 0.11 10*3/uL 0.06-0.53 711-2) BASO x10^3 (test code 0.03 10*3/uL 0.01-0.09 = 704-7) Lab Interpretation Abnormal (test code = 10895-5) [facility] PELVIS [id number] 11:13:00 [facility] : 1970 Sex: M Name: HOANG MCNEILL FSED : 1970 Age/S: 52 / M [address] [facility] Unit #: [id number] Loc: [place] [address] Phys: Dyana Cameron MD Acct: [id number] Dis Date: Status: REG ER PHONE #:Exam Date: 01/27/2023 1050 FAX #: Reason: LOWER ABD PAIN, OSTOMY REVERSAL 5 MOS AGO EXAMS: CPT CODE:[id number] CT ABD PELVIS W/CONT 03148 B2 TIME OF STUDY: 01/27/2023 9:16 AM REASON FOR EXAM: LOWER ABD PAIN, OSTOMY REVERSAL 5 MOS AGO COMPARISON: February 28, 2013 TECHNIQUE: Helical post contrast enhanced images were obtained through the abdomen and pelvis. Sagittal and coronal reformats were obtained and reviewed. One or more of the following radiation dose reduction techniques was used: automated exposurecontrol, adjustment of mA and/or KV according to [...] normal appearance. There is no mesenteric or retroperitonealadenopathy. There is no free fluid or free air. The osseous structures are age-appropriate. CT Pelvis: Bladder is partially decompressed with circumferential wall thickening. IMPRESSION: 1. Postoperative changes of colectomy with anastomotic sutures at the sigmoid colon. There is diffuse dilatation ofloops of small bowel with no obvious transition zone. Differential considerations include ileus versu s obstruction. Consider small bowel follow-through for further evaluation. 2. Small bowel to small bowel exception of the left lower quadrant, likely transient. PAGE 1 Signed Report (CONTINUED) Name: HOANG MCNEILL FSED : 1970 Age/S: 52 / M [address] [facility] Unit #: [id number] Loc: [place] [address] Phys: Dyana Cameron MD Acct: [id number] Dis Date: Status: REG ER PHONE #: Exam Date: 01/27/2023 1050 FAX #: Reason: LOWER ABD PAIN, OSTOMY REVERSAL 5 MOS AGO EXAMS: CPT CODE: [id number] CT ABD PELVIS W/CONT 21080 (Continued) 3. Circumferential thickening of the bladder. This could be due to partial decompression versus cystitis. Correlate with symptoms and urinalysis. at 1113 Reported and signed by: Tomi Anderson M.D. CC: Dyana Cameron MD Technologist:Renzo Cassidy, RT(R)(CT) CTDI: DLP: Trnscb Date/Time: 01/27/2023 (1113) [email or web address] Orig Print D/T: S: 01/27/2023 (1116) PAGE 2 Signed ReportLIVER [id number] 10:31:00 Test Item Value Reference Range Interpretation Comments TOTAL PROTEIN (test code 6.1 GM/DL 5.0-8.0 N Per formed by = PROT) 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 [facility] ALBUMIN (test code = 3.6 [...] (test code = 41 UNITS/L 25-125 N LYNDSEY) COMPLETE BLOOD COUNT (CBC)2023-01-27 10:22:00 Test Item Value Reference Range Interpretation Comments POC WHITE BLOOD CELL 7.1 10 3/uL 3.9-9.4 N Testing performed (test code = EDWBC) at:[facility] T X [address] [facility], [place], [place] [address] POC RED BLOOD CELL 3.90 10 6/uL [...] VOLUME (test code = EDMPV) BASIC METABOLIC [id number] 10:10:00 Test Item Value Reference Range Interpretation [...] NA (test code = 137 mmol/L 135-145 2971681595) K (test code = 4.4 mmol/L 3.5-5.0 8175024965) CL (test code = 114 mmol/L 98-108 H 2541772604) CO2 TOTAL (test code = 22 mmol/L 23-31 L 6924998970) AGAP (test code = 1 2-16 L 9915124250) BUN (test code = 12 mg/dL 7-23 2932311120) GLUCOSE (test code = 78 mg/dL 70-110 4655314360) CREATININE (test code = 1.14 mg/dL 0.60-1.25 1327240230) CALCIUM (test code = 7.7 mg/dL 8.6-10.6 L 2041773118) eGFR (test code = 67.5 mL/min/1.73m2 4967158051) GILBERTO (test code = GILBERTO) Association of [...] tests). Lab Interpretation Abnormal (test code = 74706-7) [facility]2023-04-13 11:06:51 Test Item Value Reference Range Interpretation Comments MAGNESIUM (test code = 8161693158) 1.6 mg/dL 1.7-2.4 L Lab Interpretation (test code = Abnormal 68846-5) [facility] METABOLIC PANEL (NA, K, CL, CO2, GLUCOSE, BUN, CREATININE, CA)2022-12-04 11:06:51 Test Item Value Reference Range Interpretation Comments NA (test code = 137 mmol/L 135-145 8882521851) K (test code = 4.4 mmol/L 3.5-5.0 2994780191) CL (test code = 114 mmol/L 98-108 H 2399173936) CO2 TOTAL (test code = 22 mmol/L 23-31 L 9161817975) AGAP (test code = 1 2-16 L 5739286029) BUN (test code = 12 mg/dL 7-23 8726423961) GLUCOSE (test code = 78 mg/dL 70-110 8086063886) CREATININE (test code = 1.14 mg/dL 0.60-1.25 7098874855) CALCIUM (test code = 7.7 mg/dL 8.6-10.6 L 8449103992) eGFR (test code = 67.5 mL/min/1.73m2 3904505049) GILBERTO (test code = GILBERTO) Association of [...] tests). Lab Interpretation Abnormal (test code = 12470-7) [facility]2023-04-13 11:06:51 Test Item Value Reference Range Interpretation Comments MAGNESIUM (test code = 4764616558) 1.6 mg/dL 1.7-2.4 L Lab Interpretation (test code = Abnormal 56057-7) [facility] AmericaACTIV[facility] PARTIAL THRMPLAS [id number] 10:41:28 Test Item Value Reference Range Interpretation Comments APTT Patient (test code = 28 See_Comment [ Automated message] 6353-2) The system niiu generated this result transmitted ref erence range: 26 - 36 Seconds. The re ference range was not u sed to interpret this result as normal/abnor mal. Lab Interpretation (test Normal code = 51983-1) [facility] THRM[facility]AS [id number] 10:41:28 Test Item Value Reference Range Interpretation Comments APTT Patient (test code = 28 See_Comment [ Automated message] 3783-2) The system niiu generated this result transmitted ref erence range: 26 - 36 Seconds. The re ference range was not u sed to interpret this result as normal/abnor mal. Lab Interpretation (test Normal code = 95300-1) [facility] AmericaProthrombin Time / [id number] 10:41:27 Test Item Value Reference Range Interpretation Comments PROTIME PATIENT (test 10.6 See_Comment [Auto mated message] code = 5964-2) The system Declara generated this result transmitted ref erence range: 10.1 - 1 2.6 Seconds. The re ference range was not u sed to interpret this result as normal/abnor mal. INR (test code = 6301-6) 1.0 Nor mal INR <1.1; Warfarin Therap eutic range 2.0 to 3. 0 or 2.5 to 3.5, dep ending upon the indica tions. Lab Interpretation (test Normal code = 86451-6) [facility] AmericaProthrombin Time / [id number] 10:41:27 Test Item Value Reference Range Interpretation [...] tions. Lab Interpretation (test Normal code = 67549-1) [facility] AmericaCBC WITH [id number] 10:35:48 Test Item Value Reference Range Interpretation Comments WBC (test code = 4.40 See_Comment [Automated 2990-2) message] The sy stem which generated this result transmitted reference range : 4.20 - 10.70 10*3/?L. The reference range was not used to interpret this result as normal/abnormal . RBC (test code = 2.84 See_Comment L [Automated 999-8) message] The sy [...] RDW-SD (test code = 50.4 fL 38.5-51.6 66016-1) RDW-CV (test code = 15.2 % 12.1-15.4 788-0) PLT (test code = 190 See_Comment [Automated 777-3) message] The sy stem which generated this result transmitted reference range : 150 - 328 10*3/ ?L. The reference r meredith was not used to interpret this result as normal/abnormal . MPV (test code = 9.5 fL 9.8-13.0 L 47398-3) NRBC/100 WBC (test 0.0 See_Comment [Automat ed code = 2085849855) message] The system which generated this result transmitted reference range : 0.0 - 10.0 /100 WBCs. The refer ence range was not u sed to interpret th is result as normal/abnormal . NRBC x10^3 (test code See_Comment [Auto mated = 9683138784) message] The s ystem which generated this result transmitted reference range : 10*3/?L. The reference range was not used to interpret this result as normal/abnormal . GRAN MAT (NEUT) % 52.1 % (test code = 770-8) IMM GRAN % (test code 0.20 % = 6087258238) LYMPH % (test code = 30.0 % 736-9) MONO % (test code = 13.6 % 5905-5) EOS % (test code = 3.4 % 713-8) BASO % (test code = 0.7 % 706-2) GRAN MAT x10^3(ANC) 2.29 10*3/uL 1.99-6.95 (test code = 7461112878) IMM GRAN x10^3 (test 0.00-0.06 code = 1875690992) LYMPH x10^3 (test code 1.32 10*3/uL 1.09-3.23 = 731-0) MONO x10^3 (test code 0.60 10*3/uL 0.36-1.02 = 742-7) EOS x10^3 (test code = 0.15 10*3/uL 0.06-0.53 711-2) BASO x10^3 (test code 0.03 10*3/uL 0.01-0.09 = 704-7) Lab Interpretation Abnormal (test code = 78454-3) [facility] WITH [id number] 10:35:48 Test Item Value Reference Range Interpretation [...] RDW-SD (test code = 50.4 fL 38.5-51.6 29937-7) RDW-CV (test code = 15.2 % 12.1-15.4 788-0) PLT (test code = 190 See_Comment [Automated 777-3) message] The sy stem which generated this result transmitted reference range : 150 - 328 10*3/ ?L. The reference r meredith was not used to interpret this result as normal/abnormal . MPV (test code = 9.5 fL 9.8-13.0 L 14443-6) NRBC/100 WBC (test 0.0 See_Comment [Automat ed code = 3278504694) message] The system which generated this result transmitted reference range : 0.0 - 10.0 /100 WBCs. The refer ence range was not u sed to interpret th is result as normal/abnormal . NRBC x10^3 (test code See_Comment [Auto mated = 6352896075) message] The s ystem which generated this result transmitted reference range : 10*3/?L. The reference range was not used to interpret this result as normal/abnormal . GRAN MAT (NEUT) % 52.1 % (test code = 770-8) IMM GRAN % (test code 0.20 % = 1658552967) LYMPH % (test code = 30.0 % 736-9) MONO % (test code = 13.6 % 5905-5) EOS % (test code = 3.4 % 713-8) BASO % (test code = 0.7 % 706-2) GRAN MAT x10^3(ANC) 2.29 10*3/uL 1.99-6.95 (test code = 2556995195) IMM GRAN x10^3 (test 0.00-0.06 code = 9267601631) LYMPH x10^3 (test code 1.32 10*3/uL 1.09-3.23 = 731-0) MONO x10^3 (test code 0.60 10*3/uL 0.36-1.02 = 742-7) EOS x10^3 (test code = 0.15 10*3/uL 0.06-0.53 711-2) BASO x10^3 (test code 0.03 10*3/uL 0.01-0.09 = 704-7) Lab Interpretation Abnormal (test code = 24184-8) [facility] 11:40:33 Test Item Value Reference Range Interpretation Comments MAGNESIUM (test code = 6926813604) 1.8 mg/dL 1.7-2.4 Lab Interpretation (test code = Normal 44297-6) [facility] 11:40:33 Test Item Value Reference Range Interpretation Comments MAGNESIUM (test code = 5521022067) 1.8 mg/dL 1.7-2.4 Lab Interpretation (test code = Normal 99413-8) [facility] METABOLIC PANEL (NA, K, CL, CO2, GLUCOSE, BUN, CREATININE, CA)2022-12-03 11:40:32 Test Item Value Reference Range Interpretation Comments NA (test code = 134 mmol/L 135-145 L 3072736231) K (test code = 4.1 mmol/L 3.5-5.0 9365428502) CL (test code = 111 mmol/L 98-108 H 2776826457) CO2 TOTAL (test code = 21 mmol/L 23-31 L 8841178635) AGAP (test code = 2 2-16 4274300340) BUN (test code = 13 mg/dL 7-23 2664135222) GLUCOSE (test code = 88 mg/dL 70-110 2806785732) CREATININE (test code = 1.24 mg/dL 0.60-1.25 8006916602) CALCIUM (test code = 7.4 mg/dL 8.6-10.6 L 8650417959) eGFR (test code = 61.2 mL/min/1.73m2 8457222326) GILBERTO (test code = GILBERTO) Association of [...] tests). Lab Interpretation Abnormal (test code = 69500-8) [facility] METABOLIC PANEL (NA, K, CL, CO2, GLUCOSE, BUN, CREATININE, CA)2022-12-03 11:40:32 Test Item Value Reference Range Interpretation Comments NA (test code = 134 mmol/L 135-145 L 2059001339) K (test code = 4.1 mmol/L 3.5-5.0 8725212348) CL (test code = 111 mmol/L 98-108 H 6123727127) CO2 TOTAL (test code = 21 mmol/L 23-31 L 0178221919) AGAP (test code = 2 2-16 9669649430) BUN (test code = 13 mg/dL 7-23 8845077024) GLUCOSE (test code = 88 mg/dL 70-110 8985718592) CREATININE (test code = 1.24 mg/dL 0.60-1.25 9696440328) CALCIUM (test code = 7.4 mg/dL 8.6-10.6 L 3662876693) eGFR (test code = 61.2 mL/min/1.73m2 5994639399) GILBERTO (test code = GILBERTO) Association of [...] tests). Lab Interpretation Abnormal (test code = 35499-2) [facility] WITH [id number] 11:16:11 Test Item Value Reference Range Interpretation [...] RDW-SD (test code = 49.3 fL 38.5-51.6 70136-5) RDW-CV (test code = 14.9 % 12.1-15.4 788-0) PLT (test code = 214 See_Comment [Automated 777-3) message] The sy stem which generated this result transmitted reference range : 150 - 328 10*3/ ?L. The reference r meredith was not used to interpret this result as normal/abnormal . MPV (test code = 9.4 fL 9.8-13.0 L 23845-3) NRBC/100 WBC (test 0.0 See_Comment [Automat ed code = 3642870124) message] The system which generated this result transmitted reference range : 0.0 - 10.0 /100 WBCs. The refer ence range was not u sed to interpret th is result as normal/abnormal . NRBC x10^3 (test code See_Comment [Auto mated = 6948487416) message] The s ystem which generated this result transmitted reference range : 10*3/?L. The reference range was not used to interpret this result as normal/abnormal . GRAN MAT (NEUT) % 59.7 % (test code = 770-8) IMM GRAN % (test code 0.20 % = 6130164239) LYMPH % (test code = 25.8 % 736-9) MONO % (test code = 11.2 % 5905-5) EOS % (test code = 2.4 % 713-8) BASO % (test code = 0.7 % 706-2) GRAN MAT x10^3(ANC) 2.73 10*3/uL 1.99-6.95 (test code = 2100016526) IMM GRAN x10^3 (test 0.00-0.06 code = 6055172232) LYMPH x10^3 (test code 1.18 10*3/uL 1.09-3.23 = 731-0) MONO x10^3 (test code 0.51 10*3/uL 0.36-1.02 = 742-7) EOS x10^3 (test code = 0.11 10*3/uL 0.06-0.53 711-2) BASO x10^3 (test code 0.03 10*3/uL 0.01-0.09 = 704-7) Lab Interpretation Abnormal (test code = 24616-9) [facility] WITH [id number] 11:16:11 Test Item Value Reference Range Interpretation Comments WBC (test code = 4.57 See_Comment [Automated 1390-2) message] The sy stem which generated this result transmitted reference range : 4.20 - 10.70 10*3/?L. The reference range was not used to interpret this result as normal/abnormal . RBC (test code = 2.73 See_Comment L [Automated 509-8) message] The sy [...] RDW-SD (test code = 49.3 fL 38.5-51.6 95316-6) RDW-CV (test code = 14.9 % 12.1-15.4 788-0) PLT (test code = 214 See_Comment [Automated 777-3) message] The sy stem which generated this result transmitted reference range : 150 - 328 10*3/ ?L. The reference r meredith was not used to interpret this result as normal/abnormal . MPV (test code = 9.4 fL 9.8-13.0 L 68021-6) NRBC/100 WBC (test 0.0 See_Comment [Automat ed code = 5013811113) message] The system which generated this result transmitted reference range : 0.0 - 10.0 /100 WBCs. The refer ence range was not u sed to interpret th is result as normal/abnormal . NRBC x10^3 (test code See_Comment [Auto mated = 8298084775) message] The s ystem which generated this result transmitted reference range : 10*3/?L. The reference range was not used to interpret this result as normal/abnormal . GRAN MAT (NEUT) % 59.7 % (test code = 770-8) IMM GRAN % (test code 0.20 % = 1972588540) LYMPH % (test code = 25.8 % 736-9) MONO % (test code = 11.2 % 5905-5) EOS % (test code = 2.4 % 713-8) BASO % (test code = 0.7 % 706-2) GRAN MAT x10^3(ANC) 2.73 10*3/uL 1.99-6.95 (test code = 6004475446) IMM GRAN x10^3 (test 0.00-0.06 code = 2341142673) LYMPH x10^3 (test code 1.18 10*3/uL 1.09-3.23 = 731-0) MONO x10^3 (test code 0.51 10*3/uL 0.36-1.02 = 742-7) EOS x10^3 (test code = 0.11 10*3/uL 0.06-0.53 711-2) BASO x10^3 (test code 0.03 10*3/uL 0.01-0.09 = 704-7) Lab Interpretation Abnormal (test code = 63497-9) [facility] CULTURE [id number] 15:01:14 Test Item Value Reference Range Interpretation Comments Blood Culture-Aerobic No organisms No growth Previo us (test code = 16797-8) isolated prelim inary verified result was Culture [...] Culture-Anaerobic isolated preliminar y (test code = 68563-7) verifi ed result was Culture In Progress [...] CDT Lab Interpretation Normal (test code = 40642-4) [facility] CULTURE [id number] 15:01:14 Test Item Value Reference Range Interpretation Comments Blood Culture-Aerobic No organisms No growth Previo us (test code = 98681-8) isolated prelim inary verified result was Culture [...] Culture-Anaerobic isolated preliminar y (test code = 57510-4) verifi ed result was Culture In Progress [...] CDT Lab Interpretation Normal (test code = 22378-5) [facility] CULTURE [id number] 15:01:14 Test Item Value Reference Range Interpretation Comments Blood Culture-Aerobic No organisms No growth Previo us (test code = 51993-1) isolated prelim inary verified result was Culture [...] Culture-Anaerobic isolated preliminar y (test code = 65930-3) verifi ed result was Culture In Progress [...] CDT Lab Interpretation Normal (test code = 83391-1) [facility] CULTURE [id number] 15:01:14 Test Item Value Reference Range Interpretation Comments Blood Culture-Aerobic No organisms No growth Previo us (test code = 73215-5) isolated prelim inary verified result was Culture [...] Culture-Anaerobic isolated preliminar y (test code = 85263-3) verifi ed result was Culture In Progress [...] CDT Lab Interpretation Normal (test code = 78277-4) [facility] 14:32:40 Test Item Value Reference Range Interpretation Comments PHOSPHORUS (test code = 9130440305) 3.1 mg/dL 2.5-5.0 Lab Interpretation (test code = Normal 24204-2) [facility] 14:32:40 Test Item Value Reference Range Interpretation Comments PHOSPHORUS (test code = 2474737007) 3.1 mg/dL 2.5-5.0 Lab Interpretation (test code = Normal 61411-4) [facility] (NA, K, CL, CO2, GLUCOSE, BUN, CREATININE, CA)2022-12-02 10:14:23 Test Item Value Reference Range Interpretation Comments NA (test code = 133 mmol/L 135-145 L [id number]) K (test code = 4.2 mmol/L 3.5-5.0 [id number]) CL (test code = 110 mmol/L 98-108 H [id number]) CO2 TOTAL (test code = 20 mmol/L 23-31 L 8555830794) AGAP (test code = 3 2-16 5291495334) BUN (test code = 11 mg/dL 7-23 8411027343) GLUCOSE (test code = 97 mg/dL 70-110 2948974922) CREATININE (test code = 1.13 mg/dL 0.60-1.25 2582603108) CALCIUM (test code = 7.6 mg/dL 8.6-10.6 L 6462225107) eGFR (test code = 68.1 mL/min/1.73m2 8458569275) GILBERTO (test code = GILBERTO) Association of [...] tests). Lab Interpretation Abnormal (test code = 40706-2) [facility]23 Test Item Value Reference Range Interpretation Comments MAGNESIUM (test code = 6084188717) 1.5 mg/dL 1.7-2.4 L Lab Interpretation (test code = Abnormal 95878-2) [facility] (NA, K, CL, CO2, GLUCOSE, BUN, CREATININE, CA)2022-12-02 10:14:23 Test Item Value Reference Range Interpretation Comments NA (test code = 133 mmol/L 135-145 L 5756174324) K (test code = 4.2 mmol/L 3.5-5.0 9354039993) CL (test code = 110 mmol/L 98-108 H 2991271911) CO2 TOTAL (test code = 20 mmol/L 23-31 L 6730329295) AGAP (test code = 3 2-16 4178427208) BUN (test code = 11 mg/dL 7-23 1448517194) GLUCOSE (test code = 97 mg/dL 70-110 6283435343) CREATININE (test code = 1.13 mg/dL 0.60-1.25 8269775026) CALCIUM (test code = 7.6 mg/dL 8.6-10.6 L 9276009724) eGFR (test code = 68.1 mL/min/1.73m2 8435816937) GILBERTO (test code = GILBERTO) Association of [...] tests). Lab Interpretation Abnormal (test code = 06731-8) [facility] 10:14:23 Test Item Value Reference Range Interpretation Comments MAGNESIUM (test code = 2681033683) 1.5 mg/dL 1.7-2.4 L Lab Interpretation (test code = Abnormal 65116-8) [facility] (NA, K, CL, CO2, GLUCOSE, BUN, CREATININE, CA)2022-12-01 10:30:03 Test Item Value Reference Range Interpretation Comments NA (test code = 135 mmol/L 135-145 5173401739) K (test code = 4.3 mmol/L 3.5-5.0 4697855916) CL (test code = 111 mmol/L 98-108 H 4891085823) CO2 TOTAL (test code = 20 mmol/L 23-31 L 1370585262) AGAP (test code = 4 2-16 7660142521) BUN (test code = 13 mg/dL 7-23 6915443673) GLUCOSE (test code = 81 mg/dL 70-110 4932644109) CREATININE (test code = 0.97 mg/dL 0.60-1.25 0728129078) CALCIUM (test code = 7.5 mg/dL 8.6-10.6 L 4286373527) eGFR (test code = 81.3 mL/min/1.73m2 4531861746) GILBERTO (test code = GILBERTO) Association of [...] tests). Lab Interpretation Abnormal (test code = 11141-1) [facility] 10:30:03 Test Item Value Reference Range Interpretation Comments MAGNESIUM (test code = 3041536439) 1.9 mg/dL 1.7-2.4 Lab Interpretation (test code = Normal 32366-2) [facility] (NA, K, CL, CO2, GLUCOSE, BUN, CREATININE, CA)2022-12-01 10:30:03 Test Item Value Reference Range Interpretation Comments NA (test code = 135 mmol/L 135-145 8927277836) K (test code = 4.3 mmol/L 3.5-5.0 3370501572) CL (test code = 111 mmol/L 98-108 H 3926427123) CO2 TOTAL (test code = 20 mmol/L 23-31 L 5027217462) AGAP (test code = 4 2-16 0206243112) BUN (test code = 13 mg/dL 7-23 9852875986) GLUCOSE (test code = 81 mg/dL 70-110 8919737641) CREATININE (test code = 0.97 mg/dL 0.60-1.25 8989044198) CALCIUM (test code = 7.5 mg/dL 8.6-10.6 L 7464511723) eGFR (test code = 81.3 mL/min/1.73m2 1469425485) GILBERTO (test code = GILBERTO) Association of [...] tests). Lab Interpretation Abnormal (test code = 75693-7) [facility] 10:30:03 Test Item Value Reference Range Interpretation Comments MAGNESIUM (test code = 2639611881) 1.9 mg/dL 1.7-2.4 Lab Interpretation (test code = Normal 29131-3) [facility] WITH [id number] 10:27:26 Test Item Value Reference Range Interpretation Comments WBC (test code = 4.61 See_Comment [Automated 9064-2) message] The sy stem which generated this result transmitted reference range : 4.20 - 10.70 10*3/?L. The reference range was not used to interpret this result as normal/abnormal . RBC (test code = 3.05 See_Comment L [Automated 209-8) message] The sy stem which generated this [...] RDW-SD (test code = 47.7 fL 38.5-51.6 59800-1) RDW-CV (test code = 14.5 % 12.1-15.4 788-0) PLT (test code = 274 See_Comment [Automated 777-3) message] The sy stem which generated this result transmitted reference range : 150 - 328 10*3/ ?L. The reference r meredith was not used to interpret this result as normal/abnormal . MPV (test code = 9.0 fL 9.8-13.0 L 36962-2) NRBC/100 WBC (test 0.0 See_Comment [Automat ed code = 3798540438) message] The system which generated this result transmitted reference range : 0.0 - 10.0 /100 WBCs. The refer ence range was not u sed to interpret th is result as normal/abnormal . NRBC x10^3 (test code See_Comment [Auto mated = 3572511715) message] The s ystem which generated this result transmitted reference range : 10*3/?L. The reference range was not used to interpret this result as normal/abnormal . GRAN MAT (NEUT) % 53.2 % (test code = 770-8) IMM GRAN % (test code 0.00 % = 6063989680) LYMPH % (test code = 34.7 % 736-9) MONO % (test code = 9.3 % 5905-5) EOS % (test code = 2.4 % 713-8) BASO % (test code = 0.4 % 706-2) GRAN MAT x10^3(ANC) 2.45 10*3/uL 1.99-6.95 (test code = 3183688512) IMM GRAN x10^3 (test 0.00-0.06 code = 3003830301) LYMPH x10^3 (test code 1.60 10*3/uL 1.09-3.23 = 731-0) MONO x10^3 (test code 0.43 10*3/uL 0.36-1.02 = 742-7) EOS x10^3 (test code = 0.11 10*3/uL 0.06-0.53 711-2) BASO x10^3 (test code 0.01-0.09 = 704-7) Lab Interpretation Abnormal (test code = 13349-9) [facility] WITH [id number] 10:27:26 Test Item Value Reference Range Interpretation Comments WBC (test code = 4.61 See_Comment [Automated 8090-2) message] The sy stem which generated this result transmitted reference range : 4.20 - 10.70 10*3/?L. The reference range was not used to interpret this result as normal/abnormal . RBC (test code = 3.05 See_Comment L [Automated 649-8) message] The sy [...] RDW-SD (test code = 47.7 fL 38.5-51.6 69557-7) RDW-CV (test code = 14.5 % 12.1-15.4 788-0) PLT (test code = 274 See_Comment [Automated 037-3) message] The sy stem which generated this result transmitted reference range : 150 - 328 10*3/ ?L. The reference r meredith was not used to interpret this result as normal/abnormal . MPV (test code = 9.0 fL 9.8-13.0 L 63729-5) NRBC/100 WBC (test 0.0 See_Comment [Automat ed code = 1558308947) message] The system which generated this result transmitted reference range : 0.0 - 10.0 /100 WBCs. The refer ence range was not u sed to interpret th is result as normal/abnormal . NRBC x10^3 (test code See_Comment [Auto mated = 9573598960) message] The s ystem which generated this result transmitted reference range : 10*3/?L. The reference range was not used to interpret this result as normal/abnormal . GRAN MAT (NEUT) % 53.2 % (test code = 770-8) IMM GRAN % (test code 0.00 % = 7309400067) LYMPH % (test code = 34.7 % 736-9) MONO % (test code = 9.3 % 5905-5) EOS % (test code = 2.4 % 713-8) BASO % (test code = 0.4 % 706-2) GRAN MAT x10^3(ANC) 2.45 10*3/uL 1.99-6.95 (test code = 8348673152) IMM GRAN x10^3 (test 0.00-0.06 code = 2033105550) LYMPH x10^3 (test code 1.60 10*3/uL 1.09-3.23 = 731-0) MONO x10^3 (test code 0.43 10*3/uL 0.36-1.02 = 742-7) EOS x10^3 (test code = 0.11 10*3/uL 0.06-0.53 711-2) BASO x10^3 (test code 0.01-0.09 = 704-7) Lab Interpretation Abnormal (test code = 82717-5) [facility] METABOLIC PANEL (NA, K, CL, CO2, GLUCOSE, BUN, CREATININE, CA)2022-11-30 11:04:34 Test Item Value Reference Range Interpretation Comments NA (test code = 132 mmol/L 135-145 L 8498136947) K (test code = 4.7 mmol/L 3.5-5.0 8049793509) CL (test code = 108 mmol/L 98-108 2536222905) CO2 TOTAL (test code = 18 mmol/L 23-31 L 4509628865) AGAP (test code = 6 2-16 7458734278) BUN (test code = 15 mg/dL 7-23 3138381695) GLUCOSE (test code = 75 mg/dL 70-110 6339454671) CREATININE (test code = 1.03 mg/dL 0.60-1.25 9315146853) CALCIUM (test code = 8.2 mg/dL 8.6-10.6 L 6023009389) eGFR (test code = 75.8 mL/min/1.73m2 6588790372) GILBERTO (test code = GILBERTO) Association of [...] tests). Lab Interpretation Abnormal (test code = 82455-7) [facility] Test Item Value Reference Range Interpretation Comments MAGNESIUM (test code = 2547372109) 1.6 mg/dL 1.7-2.4 L Lab Interpretation (test code = Abnormal 72260-9) [facility] METABOLIC PANEL (NA, K, CL, CO2, GLUCOSE, BUN, CREATININE, CA)2022-11-30 11:04:34 Test Item Value Reference Range Interpretation Comments NA (test code = 132 mmol/L 135-145 L 4528401788) K (test code = 4.7 mmol/L 3.5-5.0 7717658445) CL (test code = 108 mmol/L 98-108 1114140025) CO2 TOTAL (test code = 18 mmol/L 23-31 L 0424440619) AGAP (test code = 6 2-16 6549279036) BUN (test code = 15 mg/dL 7-23 9281590245) GLUCOSE (test code = 75 mg/dL 70-110 2383798116) CREATININE (test code = 1.03 mg/dL 0.60-1.25 6713091508) CALCIUM (test code = 8.2 mg/dL 8.6-10.6 L 5596131471) eGFR (test code = 75.8 mL/min/1.73m2 0291259565) GILBERTO (test code = GILBERTO) Association of [...] tests). Lab Interpretation Abnormal (test code = 80862-4) [facility] 11:04:34 Test Item Value Reference Range Interpretation Comments MAGNESIUM (test code = 0876998726) 1.6 mg/dL 1.7-2.4 L Lab Interpretation (test code = Abnormal 55430-6) [facility] WITH [id number] 10:09:29 Test Item Value Reference Range Interpretation Comments WBC (test code = 4.46 See_Comment [Automated 7022-2) message] The sy stem which generated this result transmitted reference range : 4.20 - 10.70 10*3/?L. The reference range was not used to interpret this result as normal/abnormal . RBC (test code = 3.22 See_Comment L [Automated 508-8) message] The sy stem which generated this [...] RDW-SD (test code = 45.1 fL 38.5-51.6 35002-1) RDW-CV (test code = 14.1 % 12.1-15.4 788-0) PLT (test code = 282 See_Comment [Automated 177-3) message] The sy stem which generated this result transmitted reference range : 150 - 328 10*3/ ?L. The reference r meredith was not used to interpret this result as normal/abnormal . MPV (test code = 9.0 fL 9.8-13.0 L 96122-5) NRBC/100 WBC (test 0.0 See_Comment [Automat ed code = 4552165057) message] The system which generated this result transmitted reference range : 0.0 - 10.0 /100 WBCs. The refer ence range was not u sed to interpret th is result as normal/abnormal . NRBC x10^3 (test code See_Comment [Auto mated = 6702321630) message] The s ystem which generated this result transmitted reference range : 10*3/?L. The reference range was not used to interpret this result as normal/abnormal . GRAN MAT (NEUT) % 51.6 % (test code = 770-8) IMM GRAN % (test code 0.20 % = 0274421251) LYMPH % (test code = 34.8 % 736-9) MONO % (test code = 10.8 % 5905-5) EOS % (test code = 2.2 % 713-8) BASO % (test code = 0.4 % 706-2) GRAN MAT x10^3(ANC) 2.30 10*3/uL 1.99-6.95 (test code = 0820120609) IMM GRAN x10^3 (test 0.00-0.06 code = 2066694100) LYMPH x10^3 (test code 1.55 10*3/uL 1.09-3.23 = 731-0) MONO x10^3 (test code 0.48 10*3/uL 0.36-1.02 = 742-7) EOS x10^3 (test code = 0.10 10*3/uL 0.06-0.53 711-2) BASO x10^3 (test code 0.01-0.09 = 704-7) Lab Interpretation Abnormal (test code = 48929-9) [facility] WITH [id number] 10:09:29 Test Item Value Reference Range Interpretation [...] RDW-SD (test code = 45.1 fL 38.5-51.6 17118-4) RDW-CV (test code = 14.1 % 12.1-15.4 788-0) PLT (test code = 282 See_Comment [Automated 777-3) message] The sy stem which generated this result transmitted reference range : 150 - 328 10*3/ ?L. The reference r meredith was not used to interpret this result as normal/abnormal . MPV (test code = 9.0 fL 9.8-13.0 L 43907-1) NRBC/100 WBC (test 0.0 See_Comment [Automat ed code = 7988291974) message] The system which generated this result transmitted reference range : 0.0 - 10.0 /100 WBCs. The refer ence range was not u sed to interpret th is result as normal/abnormal . NRBC x10^3 (test code See_Comment [Auto mated = 8418574092) message] The s ystem which generated this result transmitted reference range : 10*3/?L. The reference range was not used to interpret this result as normal/abnormal . GRAN MAT (NEUT) % 51.6 % (test code = 770-8) IMM GRAN % (test code 0.20 % = 2742646839) LYMPH % (test code = 34.8 % 736-9) MONO % (test code = 10.8 % 5905-5) EOS % (test code = 2.2 % 713-8) BASO % (test code = 0.4 % 706-2) GRAN MAT x10^3(ANC) 2.30 10*3/uL 1.99-6.95 (test code = 1475608344) IMM GRAN x10^3 (test 0.00-0.06 code = 4210309148) LYMPH x10^3 (test code 1.55 10*3/uL 1.09-3.23 = 731-0) MONO x10^3 (test code 0.48 10*3/uL 0.36-1.02 = 742-7) EOS x10^3 (test code = 0.10 10*3/uL 0.06-0.53 711-2) BASO x10^3 (test code 0.01-0.09 = 704-7) Lab Interpretation Abnormal (test code = 41858-6) [facility] [id number] 13:52:51 Test Item Value Reference Range Interpretation Comments LACTIC ACID (test code = 1.53 mmol/L 0.50-2.20 4755165869) Lab Interpretation (test code = Normal 15312-5) [facility] Acid Whole [id number] 13:52:51 Test Item Value Reference Range Interpretation Comments LACTIC ACID (test code = 1.53 mmol/L 0.50-2.20 6599632178) Lab Interpretation (test code = Normal 22184-7) [facility] METABOLIC PANEL (NA, K, CL, CO2, GLUCOSE, BUN, CREATININE, CA)2022-11-29 09:16:40 Test Item Value Reference Range Interpretation Comments NA (test code = 130 mmol/L 135-145 L 0288857211) K (test code = 4.6 mmol/L 3.5-5.0 2058716036) CL (test code = 106 mmol/L 98-108 9793720019) CO2 TOTAL (test code = 20 mmol/L 23-31 L 2006670100) AGAP (test code = 4 2-16 3337540386) BUN (test code = 22 mg/dL 7-23 7773260751) GLUCOSE (test code = 79 mg/dL 70-110 0329543747) CREATININE (test code = 1.24 mg/dL 0.60-1.25 8475974346) CALCIUM (test code = 8.1 mg/dL 8.6-10.6 L 0951404812) eGFR (test code = 61.2 mL/min/1.73m2 7485751953) GILBERTO (test code = GILBERTO) Association of [...] tests). Lab Interpretation Abnormal (test code = 47629-4) [facility] 09:16:40 Test Item Value Reference Range Interpretation Comments MAGNESIUM (test code = 1748086329) 2.0 mg/dL 1.7-2.4 Lab Interpretation (test code = Normal 02494-6) [facility] (NA, K, CL, CO2, GLUCOSE, BUN, CREATININE, CA)2022-11-29 09:16:40 Test Item Value Reference Range Interpretation Comments NA (test code = 130 mmol/L 135-145 L 8030394161) K (test code = 4.6 mmol/L 3.5-5.0 7584289806) CL (test code = 106 mmol/L 98-108 7040097578) CO2 TOTAL (test code = 20 mmol/L 23-31 L 6052767041) AGAP (test code = 4 2-16 2537040746) BUN (test code = 22 mg/dL 7-23 3069006815) GLUCOSE (test code = 79 mg/dL 70-110 7900311699) CREATININE (test code = 1.24 mg/dL 0.60-1.25 6459241980) CALCIUM (test code = 8.1 mg/dL 8.6-10.6 L 8062909401) eGFR (test code = 61.2 mL/min/1.73m2 1398423793) GILBERTO (test code = GILBERTO) Association of [...] tests). Lab Interpretation Abnormal (test code = 59193-3) [facility] 09:16:40 Test Item Value Reference Range Interpretation Comments MAGNESIUM (test code = 1839447198) 2.0 mg/dL 1.7-2.4 Lab Interpretation (test code = Normal 28254-1) [facility] WITH [id number] 08:51:40 Test Item Value Reference Range Interpretation Comments WBC (test code = 4.77 See_Comment [Automated 6690-2) message] The sy stem [...] RDW-SD (test code = 44.9 fL 38.5-51.6 49725-1) RDW-CV (test code = 14.3 % 12.1-15.4 788-0) PLT (test code = 287 See_Comment [Automated 777-3) message] The sy stem which generated this result transmitted reference range : 150 - 328 10*3/ ?L. The reference r meredith was not used to interpret this result as normal/abnormal . MPV (test code = 8.9 fL 9.8-13.0 L 30677-8) NRBC/100 WBC (test 0.0 See_Comment [Automat ed code = 9505352464) message] The system which generated this result transmitted reference range : 0.0 - 10.0 /100 WBCs. The refer ence range was not u sed to interpret th is result as normal/abnormal . NRBC x10^3 (test code See_Comment [Auto mated = 1496023771) message] The s ystem which generated this result transmitted reference range : 10*3/?L. The reference range was not used to interpret this result as normal/abnormal . GRAN MAT (NEUT) % 52.5 % (test code = 770-8) IMM GRAN % (test code 0.20 % = 6149913115) LYMPH % (test code = 35.2 % 736-9) MONO % (test code = 9.4 % 5905-5) EOS % (test code = 2.3 % 713-8) BASO % (test code = 0.4 % 706-2) GRAN MAT x10^3(ANC) 2.50 10*3/uL 1.99-6.95 (test code = 9651313115) IMM GRAN x10^3 (test 0.00-0.06 code = 4262221432) LYMPH x10^3 (test code 1.68 10*3/uL 1.09-3.23 = 731-0) MONO x10^3 (test code 0.45 10*3/uL 0.36-1.02 = 742-7) EOS x10^3 (test code = 0.11 10*3/uL 0.06-0.53 711-2) BASO x10^3 (test code 0.01-0.09 = 704-7) Lab Interpretation Abnormal (test code = 59324-8) [facility] WITH [id number] 08:51:40 Test Item Value Reference Range Interpretation Comments WBC (test code = 4.77 See_Comment [Automated 0890-2) message] The sy stem which generated this result transmitted reference range : 4.20 - 10.70 10*3/?L. The reference range was not used to interpret this result as normal/abnormal . RBC (test code = 3.33 See_Comment L [Automated 759-8) message] The sy [...] RDW-SD (test code = 44.9 fL 38.5-51.6 16081-6) RDW-CV (test code = 14.3 % 12.1-15.4 788-0) PLT (test code = 287 See_Comment [Automated 777-3) message] The sy stem which generated this result transmitted reference range : 150 - 328 10*3/ ?L. The reference r meredith was not used to interpret this result as normal/abnormal . MPV (test code = 8.9 fL 9.8-13.0 L 70788-8) NRBC/100 WBC (test 0.0 See_Comment [Automat ed code = 1117180492) message] The system which generated this result transmitted reference range : 0.0 - 10.0 /100 WBCs. The refer ence range was not u sed to interpret th is result as normal/abnormal . NRBC x10^3 (test code See_Comment [Auto mated = 6381380893) message] The s ystem which generated this result transmitted reference range : 10*3/?L. The reference range was not used to interpret this result as normal/abnormal . GRAN MAT (NEUT) % 52.5 % (test code = 770-8) IMM GRAN % (test code 0.20 % = 8477778036) LYMPH % (test code = 35.2 % 736-9) MONO % (test code = 9.4 % 5905-5) EOS % (test code = 2.3 % 713-8) BASO % (test code = 0.4 % 706-2) GRAN MAT x10^3(ANC) 2.50 10*3/uL 1.99-6.95 (test code = 3380803765) IMM GRAN x10^3 (test 0.00-0.06 code = 0821164439) LYMPH x10^3 (test code 1.68 10*3/uL 1.09-3.23 = 731-0) MONO x10^3 (test code 0.45 10*3/uL 0.36-1.02 = 742-7) EOS x10^3 (test code = 0.11 10*3/uL 0.06-0.53 711-2) BASO x10^3 (test code 0.01-0.09 = 704-7) Lab Interpretation Abnormal (test code = 52290-4) [facility] 18:32:29 Test Item Value Reference Range Interpretation Comments PALB (test code = 81000-6) 28.4 mg/dL 18.0-45.0 Lab Interpretation (test code = Normal 31684-4) [facility] 18:32:29 Test Item Value Reference Range Interpretation Comments PALB (test code = 27635-7) 28.4 mg/dL 18.0-45.0 Lab Interpretation (test code = Normal 21237-8) [facility] 18:22:51 Test Item Value Reference Range Interpretation Comments ALBUMIN (test code = 8132646760) 3.7 g/dL 3.5-5.0 Lab Interpretation (test code = Normal 85893-9) [facility] 18:22:51 Test Item Value Reference Range Interpretation Comments ALBUMIN (test code = 3954227624) 3.7 g/dL 3.5-5.0 Lab Interpretation (test code = Normal 16807-3) [facility] 08:07:43 Test Item Value Reference Range Interpretation Comments MAGNESIUM (test code = 8919479047) 1.6 mg/dL 1.7-2.4 L Lab Interpretation (test code = Abnormal 71440-4) [facility] (NA, K, CL, CO2, GLUCOSE, BUN, CREATININE, CA)2022-11-28 08:07:43 Test Item Value Reference Range Interpretation Comments NA (test code = 129 mmol/L 135-145 L 1443818192) K (test code = 4.8 mmol/L 3.5-5.0 4574177532) CL (test code = 101 mmol/L 98-108 6265309939) CO2 TOTAL (test code = 20 mmol/L 23-31 L 4954356976) AGAP (test code = 8 2-16 8364300073) BUN (test code = 37 mg/dL 7-23 H 9507096218) GLUCOSE (test code = 92 mg/dL 70-110 4781133040) CREATININE (test code = 2.09 mg/dL 0.60-1.25 H 5138798825) CALCIUM (test code = 8.3 mg/dL 8.6-10.6 L 2141308637) eGFR (test code = 33.5 mL/min/1.73m2 1976863435) GILBERTO (test code = GILBERTO) Association of [...] tests). Lab Interpretation Abnormal (test code = 19904-1) [facility] 08:07:43 Test Item Value Reference Range Interpretation Comments MAGNESIUM (test code = 0824504682) 1.6 mg/dL 1.7-2.4 L Lab Interpretation (test code = Abnormal 04511-4) [facility] (NA, K, CL, CO2, GLUCOSE, BUN, CREATININE, CA)2022-11-28 08:07:43 Test Item Value Reference Range Interpretation Comments NA (test code = 129 mmol/L 135-145 L 9420542323) K (test code = 4.8 mmol/L 3.5-5.0 3331744858) CL (test code = 101 mmol/L 98-108 1270833161) CO2 TOTAL (test code = 20 mmol/L 23-31 L 8009159423) AGAP (test code = 8 2-16 8702603854) BUN (test code = 37 mg/dL 7-23 H 6377652013) GLUCOSE (test code = 92 mg/dL 70-110 6219821767) CREATININE (test code = 2.09 mg/dL 0.60-1.25 H 7392722553) CALCIUM (test code = 8.3 mg/dL 8.6-10.6 L 6693023875) eGFR (test code = 33.5 mL/min/1.73m2 4447337437) GILBERTO (test code = GILBERTO) Association of [...] tests). Lab Interpretation Abnormal (test code = 03643-0) [facility] Whole [id number] 21:10:50 Test Item Value Reference Range Interpretation Comments LACTIC ACID (test code = 1.18 mmol/L 0.50-2.20 1255561861) Lab Interpretation (test code = Normal 41992-4) [facility] Acid Whole [id number] 21:10:50 Test Item Value Reference Range Interpretation Comments LACTIC ACID (test code = 1.18 mmol/L 0.50-2.20 [id number]) Lab Interpretation (test code = Normal 54793-3) [facility] METABOLIC PANEL (NA, K, CL, CO2, GLUCOSE, BUN, CREATININE, CA)2022-11-27 19:07:08 Test Item Value Reference Range Interpretation Comments NA (test code = 131 mmol/L 135-145 L [id number]) K (test code = 4.5 mmol/L 3.5-5.0 1161858544) CL (test code = 103 mmol/L 98-108 7011082939) CO2 TOTAL (test code = 18 mmol/L 23-31 L 8885970836) AGAP (test code = 10 2-16 2810628981) BUN (test code = 42 mg/dL 7-23 H [id number]) GLUCOSE (test code = 120 mg/dL 70-110 H 5877304209) CREATININE (test code = 3.28 mg/dL 0.60-1.25 H 6877885918) CALCIUM (test code = 9.1 mg/dL 8.6-10.6 5245026388) eGFR (test code = 19.9 mL/min/1.73m2 4710703796) GILBERTO (test code = GILBERTO) Association of [...] tests). Lab Interpretation Abnormal (test code = 36195-6) [facility] (NA, K, CL, CO2, GLUCOSE, BUN, CREATININE, CA)2022-11-27 19:07:08 Test Item Value Reference Range Interpretation Comments NA (test code = 131 mmol/L 135-145 L [id number]) K (test code = 4.5 mmol/L 3.5-5.0 0873056498) CL (test code = 103 mmol/L 98-108 6588116349) CO2 TOTAL (test code = 18 mmol/L 23-31 L 2793983514) AGAP (test code = 10 2-16 5518545813) BUN (test code = 42 mg/dL 7-23 H 9704700148) GLUCOSE (test code = 120 mg/dL 70-110 H 3714012398) CREATININE (test code = 3.28 mg/dL 0.60-1.25 H 2928508791) CALCIUM (test code = 9.1 mg/dL 8.6-10.6 9898749332) eGFR (test code = 19.9 mL/min/1.73m2 6490452049) GILBERTO (test code = GILBERTO) Association of [...] tests). Lab Interpretation Abnormal (test code = 38426-9) [facility]. METABOLIC PANEL (25642)2022-11-27 14:49:21 Test Item Value Reference Range Interpretation Comments NA (test code = 131 mmol/L 135-145 L 1165716673) K (test code = 6.2 mmol/L 3.5-5.0 HH 6957124750) CL (test code = 95 mmol/L 98-108 L 7046701793) CO2 TOTAL (test code = 19 mmol/L 23-31 L 4789841870) AGAP (test code = 17 2-16 H 4541308190) BUN (test code = 43 mg/dL 7-23 H 6961939928) GLUCOSE (test code = 74 mg/dL 70-110 2329153824) CREATININE (test code = 4.39 mg/dL 0.60-1.25 H 4840014266) TOTAL BILI (test code = 0.6 mg/dL 0.1-1.8 6337292917) CALCIUM (test code = 10.9 mg/dL 8.6-10.6 H 4829065218) T PROTEIN (test code = 9.1 g/dL 6.3-8.2 H 3667353333) ALBUMIN (test code = 5.7 g/dL 3.5-5.0 H 1768532120) ALK PHOS (test code = 97 U/L 34-122 4538712097) ALTv (test code = 43 U/L 5-50 1742-6) AST(SGOT) (test code = 29 U/L 13-40 7699708644) eGFR (test code = 14.2 mL/min/1.73m2 6992378916) GILBERTO (test code = GILBERTO) Association of [...] tests). Lab Interpretation Abnormal (test code = 29597-1) [facility]. METABOLIC PANEL (10877)2022-11-27 14:49:21 Test Item Value Reference Range Interpretation Comments NA (test code = 131 mmol/L 135-145 L 9209734646) K (test code = 6.2 mmol/L 3.5-5.0 HH 5390656853) CL (test code = 95 mmol/L 98-108 L 1107693489) CO2 TOTAL (test code = 19 mmol/L 23-31 L 2962664635) AGAP (test code = 17 2-16 H 4119643616) BUN (test code = 43 mg/dL 7-23 H 4419010347) GLUCOSE (test code = 74 mg/dL 70-110 4841674190) CREATININE (test code = 4.39 mg/dL 0.60-1.25 H 9161780625) TOTAL BILI (test code = 0.6 mg/dL 0.1-1.8 4920443084) CALCIUM (test code = 10.9 mg/dL 8.6-10.6 H 6198059858) T PROTEIN (test code = 9.1 g/dL 6.3-8.2 H 2295482195) ALBUMIN (test code = 5.7 g/dL 3.5-5.0 H 8197325592) ALK PHOS (test code = 97 U/L 34-122 6218129085) ALTv (test code = 43 U/L 5-50 1742-6) AST(SGOT) (test code = 29 U/L 13-40 7922720843) eGFR (test code = 14.2 mL/min/1.73m2 8023510266) GILBERTO (test code = GILBERTO) Association of [...] tests). Lab Interpretation Abnormal (test code = 51629-9) [facility] [id number] 14:33:54 Test Item Value Reference Range Interpretation Comments TROPONIN I (test code = 0.003 ng/mL <=0.034 0032514479) GILBERTO (test code = GILBERTO) Reference (Normal) [...] biotin. Lab Interpretation Normal (test code = 24796-1) [facility] [id number] 14:33:54 Test Item Value Reference Range Interpretation Comments TROPONIN I (test code = 0.003 ng/mL <=0.034 4512679961) GILBERTO (test code = GILBERTO) Reference (Normal) [...] biotin. Lab Interpretation Normal (test code = 28691-0) [facility] 14:23:47 Test Item Value Reference Range Interpretation Comments MAGNESIUM (test code = 0836353620) 2.2 mg/dL 1.7-2.4 Lab Interpretation (test code = Normal 55045-5) [facility] 14:23:47 Test Item Value Reference Range Interpretation Comments PHOSPHORUS (test code = 0515284899) 8.1 mg/dL 2.5-5.0 H Lab Interpretation (test code = Abnormal 26573-0) [facility] 14:23:47 Test Item Value Reference Range Interpretation Comments MAGNESIUM (test code = 8787518157) 2.2 mg/dL 1.7-2.4 Lab Interpretation (test code = Normal 70065-8) [facility] 14:23:47 Test Item Value Reference Range Interpretation Comments PHOSPHORUS (test code = 6501639387) 8.1 mg/dL 2.5-5.0 H Lab Interpretation (test code = Abnormal 99883-0) [facility] WITH [id number] 14:09:46 Test Item Value Reference Range Interpretation Comments WBC (test code = 10.08 See_Comment [Automated 9590-2) message] The sy stem which [...] RDW-SD (test code = 45.6 fL 38.5-51.6 67708-0) RDW-CV (test code = 14.5 % 12.1-15.4 788-0) PLT (test code = 454 See_Comment H [Automated 777-3) message] The sy stem which generated this result transmitted reference range : 150 - 328 10*3/ ?L. The reference r meredith was not used to interpret this result as normal/abnormal . MPV (test code = 8.9 fL 9.8-13.0 L 49696-2) NRBC/100 WBC (test 0.0 See_Comment [Automat ed code = 3647293948) message] The system which generated this result transmitted reference range : 0.0 - 10.0 /100 WBCs. The refer ence range was not u sed to interpret th is result as normal/abnormal . NRBC x10^3 (test code See_Comment [Auto mated = 3976160742) message] The s ystem which generated this result transmitted reference range : 10*3/?L. The reference range was not used to interpret this result as normal/abnormal . GRAN MAT (NEUT) % 73.5 % (test code = 770-8) IMM GRAN % (test code 1.20 % = 1767761642) LYMPH % (test code = 15.6 % 736-9) MONO % (test code = 8.6 % 5905-5) EOS % (test code = 0.6 % 713-8) BASO % (test code = 0.5 % 706-2) GRAN MAT x10^3(ANC) 7.41 10*3/uL 1.99-6.95 H (test code = 8462001799) IMM GRAN x10^3 (test 0.12 10*3/uL 0.00-0.06 H code = 5025159202) LYMPH x10^3 (test code 1.57 10*3/uL 1.09-3.23 = 731-0) MONO x10^3 (test code 0.87 10*3/uL 0.36-1.02 = 742-7) EOS x10^3 (test code = 0.06 10*3/uL 0.06-0.53 711-2) BASO x10^3 (test code 0.05 10*3/uL 0.01-0.09 = 704-7) Lab Interpretation Abnormal (test code = 57841-1) [facility] WITH [id number] 14:09:46 Test Item Value Reference Range Interpretation Comments WBC (test code = 10.08 See_Comment [Automated 5490-2) message] The sy stem which generated this result transmitted reference range : 4.20 - 10.70 10*3/?L. The reference range was not used to interpret this result as normal/abnormal . RBC (test code = 4.93 See_Comment [Automated 289-8) message] The sy stem which [...] RDW-SD (test code = 45.6 fL 38.5-51.6 56741-0) RDW-CV (test code = 14.5 % 12.1-15.4 788-0) PLT (test code = 454 See_Comment H [Automated 777-3) message] The sy stem which generated this result transmitted reference range : 150 - 328 10*3/ ?L. The reference r meredith was not used to interpret this result as normal/abnormal . MPV (test code = 8.9 fL 9.8-13.0 L 32140-9) NRBC/100 WBC (test 0.0 See_Comment [Automat ed code = 4265019919) message] The system which generated this result transmitted reference range : 0.0 - 10.0 /100 WBCs. The refer ence range was not u sed to interpret th is result as normal/abnormal . NRBC x10^3 (test code See_Comment [Auto mated = 9763363205) message] The s ystem which generated this result transmitted reference range : 10*3/?L. The reference range was not used to interpret this result as normal/abnormal . GRAN MAT (NEUT) % 73.5 % (test code = 770-8) IMM GRAN % (test code 1.20 % = 1997771771) LYMPH % (test code = 15.6 % 736-9) MONO % (test code = 8.6 % 5905-5) EOS % (test code = 0.6 % 713-8) BASO % (test code = 0.5 % 706-2) GRAN MAT x10^3(ANC) 7.41 10*3/uL 1.99-6.95 H (test code = 5174058642) IMM GRAN x10^3 (test 0.12 10*3/uL 0.00-0.06 H code = 6956835843) LYMPH x10^3 (test code 1.57 10*3/uL 1.09-3.23 = 731-0) MONO x10^3 (test code 0.87 10*3/uL 0.36-1.02 = 742-7) EOS x10^3 (test code = 0.06 10*3/uL 0.06-0.53 711-2) BASO x10^3 (test code 0.05 10*3/uL 0.01-0.09 = 704-7) Lab Interpretation Abnormal (test code = 35722-2) [facility] [id number] 14:08:40 Test Item Value Reference Range Interpretation Comments LACTIC ACID (test code = 2.99 mmol/L 0.50-2.20 H QUE S 4204792407) Lab Interpretation (test code = Abnormal 48115-5) [facility] [id number] 14:08:40 Test Item Value Reference Range Interpretation Comments LACTIC ACID (test code = 2.99 mmol/L 0.50-2.20 H QUE S 2973581715) Lab Interpretation (test code = Abnormal 99043-9) [facility] WITH [id number] 10:10:43 Test Item Value Reference Range Interpretation [...] RDW-SD (test code = 44.1 fL 38.5-51.6 36366-5) RDW-CV (test code = 13.9 % 12.1-15.4 788-0) PLT (test code = 274 See_Comment [Automated 777-3) message] The sy stem which generated this result transmitted reference range : 150 - 328 10*3/ ?L. The reference r meredith was not used to interpret this result as normal/abnormal . MPV (test code = 9.0 fL 9.8-13.0 L 41847-3) NRBC/100 WBC (test 0.0 See_Comment [Automat ed code = 5480911411) message] The system which generated this result transmitted reference range : 0.0 - 10.0 /100 WBCs. The refer ence range was not u sed to interpret th is result as normal/abnormal . NRBC x10^3 (test code See_Comment [Auto mated = 2504024131) message] The s ystem which generated this result transmitted reference range : 10*3/?L. The reference range was not used to interpret this result as normal/abnormal . GRAN MAT (NEUT) % 38.7 % (test code = 770-8) IMM GRAN % (test code 0.00 % = 6724454102) LYMPH % (test code = 48.7 % 736-9) MONO % (test code = 10.2 % 5905-5) EOS % (test code = 1.9 % 713-8) BASO % (test code = 0.5 % 706-2) GRAN MAT x10^3(ANC) 1.44 10*3/uL 1.99-6.95 L (test code = 6814006858) IMM GRAN x10^3 (test 0.00-0.06 code = 5869535557) LYMPH x10^3 (test code 1.81 10*3/uL 1.09-3.23 = 731-0) MONO x10^3 (test code 0.38 10*3/uL 0.36-1.02 = 742-7) EOS x10^3 (test code = 0.07 10*3/uL 0.06-0.53 711-2) BASO x10^3 (test code 0.01-0.09 = 704-7) Lab Interpretation Abnormal (test code = 60459-5) [facility] METABOLIC PANEL (NA, K, CL, CO2, GLUCOSE, BUN, CREATININE, CA)2022-11-22 10:02:02 Test Item Value Reference Range Interpretation Comments NA (test code = 130 mmol/L 135-145 L 4545506970) K (test code = 4.7 mmol/L 3.5-5.0 3495830903) CL (test code = 103 mmol/L 98-108 7996653356) CO2 TOTAL (test code = 23 mmol/L 23-31 9907605522) AGAP (test code = 4 2-16 0868356716) BUN (test code = 16 mg/dL 7-23 9628704353) GLUCOSE (test code = 81 mg/dL 70-110 0401737555) CREATININE (test code = 1.23 mg/dL 0.60-1.25 5497574714) CALCIUM (test code = 7.7 mg/dL 8.6-10.6 L 8368168557) eGFR (test code = 61.8 mL/min/1.73m2 6126639791) GILBERTO (test code = GILBERTO) Association of [...] tests). Lab Interpretation Abnormal (test code = 35597-3) [facility] 10:02:02 Test Item Value Reference Range Interpretation Comments MAGNESIUM (test code = 1327035669) 1.6 mg/dL 1.7-2.4 L Lab Interpretation (test code = Abnormal 01319-0) [facility] 05:39:05 Test Item Value Reference Range Interpretation Comments MAGNESIUM (test code = 6903066075) 1.4 mg/dL 1.7-2.4 L Lab Interpretation (test code = Abnormal 78515-2) [facility] METABOLIC PANEL (NA, K, CL, CO2, GLUCOSE, BUN, CREATININE, CA)2022-11-21 05:39:04 Test Item Value Reference Range Interpretation Comments NA (test code = 126 mmol/L 135-145 L 9108722521) K (test code = 4.4 mmol/L 3.5-5.0 4701139949) CL (test code = 103 mmol/L 98-108 6469763993) CO2 TOTAL (test code = 18 mmol/L 23-31 L 0906816056) AGAP (test code = 5 2-16 0360144666) BUN (test code = 32 mg/dL 7-23 H 9920304595) GLUCOSE (test code = 80 mg/dL 70-110 3125792674) CREATININE (test code = 1.38 mg/dL 0.60-1.25 H 1304914652) CALCIUM (test code = 7.5 mg/dL 8.6-10.6 L 1212853242) eGFR (test code = 54.1 mL/min/1.73m2 4401242040) GILBERTO (test code = GILBERTO) Association of [...] tests). Lab Interpretation Abnormal (test code = 57478-1) [facility] WITH [id number] 05:19:03 Test Item Value Reference Range Interpretation Comments WBC (test code = 4.91 See_Comment [Automated 1690-2) message] The sy stem which generated this result transmitted reference range : 4.20 - 10.70 10*3/?L. The reference range was not used to interpret this result as normal/abnormal . RBC (test code = 3.32 See_Comment L [Automated 729-8) message] The sy [...] RDW-SD (test code = 43.2 fL 38.5-51.6 25259-1) RDW-CV (test code = 13.6 % 12.1-15.4 788-0) PLT (test code = 272 See_Comment [Automated 777-3) message] The sy stem which generated this result transmitted reference range : 150 - 328 10*3/ ?L. The reference r meredith was not used to interpret this result as normal/abnormal . MPV (test code = 9.0 fL 9.8-13.0 L 17695-0) NRBC/100 WBC (test 0.0 See_Comment [Automat ed code = 5864437988) message] The system which generated this result transmitted reference range : 0.0 - 10.0 /100 WBCs. The refer ence range was not u sed to interpret th is result as normal/abnormal . NRBC x10^3 (test code See_Comment [Auto mated = 1516964111) message] The s ystem which generated this result transmitted reference range : 10*3/?L. The reference range was not used to interpret this result as normal/abnormal . GRAN MAT (NEUT) % 51.1 % (test code = 770-8) IMM GRAN % (test code 0.20 % = 9199988772) LYMPH % (test code = 37.3 % 736-9) MONO % (test code = 10.0 % 5905-5) EOS % (test code = 1.0 % 713-8) BASO % (test code = 0.4 % 706-2) GRAN MAT x10^3(ANC) 2.51 10*3/uL 1.99-6.95 (test code = 2057587462) IMM GRAN x10^3 (test 0.00-0.06 code = 5533320806) LYMPH x10^3 (test code 1.83 10*3/uL 1.09-3.23 = 731-0) MONO x10^3 (test code 0.49 10*3/uL 0.36-1.02 = 742-7) EOS x10^3 (test code = 0.05 10*3/uL 0.06-0.53 L 711-2) BASO x10^3 (test code 0.01-0.09 = 704-7) Lab Interpretation Abnormal (test code = 40977-6) [facility] + LACTIC [id number] 05:15:42 Test Item Value Reference Range Interpretation Comments PH (test code = 7.32 7.32-7.42 2834028321) PCO2 PANKAJ (test code = 32 See_Comment L [Auto mated 4435504411) message] The sy stem which generated this result transmitted reference range : 41 - 51 mmHg. The reference range was not used to interpret this result as normal/abnormal . PO2 PANKAJ (test code = 45 See_Comment H [Autom ated 6836314799) message] The sy stem which generated this result transmitted reference range : 25 - 40 mmHg. The reference range was not used to interpret this result as normal/abnormal . HCO3 PANKAJ (test code = 16 See_Comment L [Auto mated 8514510564) message] The sy stem which generated this result transmitted reference range : 24 - 28 mEq/L. The reference range was not used to interpret this result as normal/abnormal . AC VBE(BEAKER) (test -8.8 mEq/L code = 3225874981) THB PANKAJ (test code = 11.2 g/dL 13.5-18.0 L 5083021189) %O2HB PANKAJ (test code = 80.5 % 52.0-63.0 H 1965414682) %COHB PANKAJ (test code = 0.1 % 0.0-1.5 9854400985) %METHB PANKAJ (test code = 0.3 % 0.4-1.5 L 0379431024) VOL%O2 PANKAJ (test code = 12.7 % 6.0-12.0 H 9643823782) NA (test code = 126 mmol/L 135-145 L 1206373179) K+ (test code = 4.1 mmol/L 3.5-5.0 4411849336) AC CA IONZ (test code = 4.60 mg/dL 4.50-5.30 8028784176) GLUCOSE (test code = 78 mg/dL 70-110 3854712406) LACTIC ACID (test code 1.07 mmol/L 0.50-2.20 = 9991085067) Lab Interpretation Abnormal (test code = 79145-3) [facility] [id number] 22:34:33 Test Item Value Reference Range Interpretation Comments FREE T4 (test code = 1.10 See_Comment [Autom ated message] 0659054043) The system niiu generated this result transmitted ref erence range: 0.78 - 2 .20 ng/dL:. The ref erence range was not u sed to interpret this result as normal/abnor mal. Lab Interpretation (test Normal code = 30172-9) [facility] [id number] 21:13:59 Test Item Value Reference Range Interpretation Comments TSH (test code = 4.81 See_Comment H Biotin has been 5757143716) reported to cau se a negative bias, interpret resul ts relative to pat ient's use of biotin. [Automated mess age] The system niiu generated this result transmitted ref erence range: 0.45 - 4 .70 mIU/L. The refe rence range was not u sed to interpret this result as normal/abnor mal. Lab Interpretation (test Abnormal code = 86016-1) [facility] Whole [id number] 15:00:25 Test Item Value Reference Range Interpretation Comments LACTIC ACID (test code = 2.76 mmol/L 0.50-2.20 H 6792279126) Lab Interpretation (test code = Abnormal 75202-6) [facility]2023-03-30 13:27:44 Test Item Value Reference Range Interpretation Comments ALBUMIN (test code = 2752758245) 3.4 g/dL 3.5-5.0 L Lab Interpretation (test code = Abnormal 48496-9) [facility] Whole [id number] 11:43:05 Test Item Value Reference Range Interpretation Comments LACTIC ACID (test code = 2.56 mmol/L 0.50-2.20 H QUE S 4694938061) Lab Interpretation (test code = Abnormal 22734-5) [facility] America[facility]ORTISOL [id number] 11:22:18 Test Item Value Reference Range Interpretation Comments MARIAM AM (test code = 4.9 ug/dL 4.5-23.0 0555787754) GILBERTO (test code = GILBERTO) Biotin has been reported to cause a positive bias, interpret results relative to patient's use of biotin. Lab Interpretation (test Normal code = 30835-0) [facility] WITH [id number] 11:14:33 Test Item Value Reference Range Interpretation Comments WBC (test code = 4.45 See_Comment [Automated 6690-2) message] The sy stem which generated this result transmitted reference range : 4.20 - 10.70 10*3/?L. The reference range was not used to interpret this result as normal/abnormal . RBC (test code = 3.53 See_Comment L [Automated 789-8) message] The sy [...] RDW-SD (test code = 42.9 fL 38.5-51.6 45492-2) RDW-CV (test code = 13.9 % 12.1-15.4 788-0) PLT (test code = 310 See_Comment [Automated 777-3) message] The sy stem which generated this result transmitted reference range : 150 - 328 10*3/ ?L. The reference r meredith was not used to interpret this result as normal/abnormal . MPV (test code = 9.2 fL 9.8-13.0 L 01659-7) NRBC/100 WBC (test 0.0 See_Comment [Automat ed code = 6941664996) message] The system which generated this result transmitted reference range : 0.0 - 10.0 /100 WBCs. The refer ence range was not u sed to interpret th is result as normal/abnormal . NRBC x10^3 (test code See_Comment [Auto mated = 4805532613) message] The s ystem which generated this result transmitted reference range : 10*3/?L. The reference range was not used to interpret this result as normal/abnormal . GRAN MAT (NEUT) % 53.3 % (test code = 770-8) IMM GRAN % (test code 0.20 % = 1641283073) LYMPH % (test code = 36.2 % 736-9) MONO % (test code = 8.8 % 5905-5) EOS % (test code = 1.1 % 713-8) BASO % (test code = 0.4 % 706-2) GRAN MAT x10^3(ANC) 2.37 10*3/uL 1.99-6.95 (test code = 1420642463) IMM GRAN x10^3 (test 0.00-0.06 code = 2214000374) LYMPH x10^3 (test code 1.61 10*3/uL 1.09-3.23 = 731-0) MONO x10^3 (test code 0.39 10*3/uL 0.36-1.02 = 742-7) EOS x10^3 (test code = 0.05 10*3/uL 0.06-0.53 L 711-2) BASO x10^3 (test code 0.01-0.09 = 704-7) Lab Interpretation Abnormal (test code = 15998-2) [facility] METABOLIC PANEL (NA, K, CL, CO2, GLUCOSE, BUN, CREATININE, CA)2022-11-20 10:49:51 Test Item Value Reference Range Interpretation Comments NA (test code = 125 mmol/L 135-145 L 9438989447) K (test code = 4.7 mmol/L 3.5-5.0 Slight 0013696700) hemolysis CL (test code = 104 mmol/L 98-108 2643275133) CO2 TOTAL (test code 13 mmol/L 23-31 L = 7903924373) AGAP (test code = 8 2-16 5747000621) BUN (test code = 60 mg/dL 7-23 H Slight 7983622045) hemolysis GLUCOSE (test code = 88 mg/dL 70-110 9498747109) CREATININE (test code 1.97 mg/dL 0.60-1.25 H = 8810943402) CALCIUM (test code = 7.7 mg/dL 8.6-10.6 L 0250954094) eGFR (test code = 35.9 mL/min/1.73m2 5714866546) GILBERTO (test code = GILBERTO) Association of [...] tests). Lab Interpretation Abnormal (test code = 46014-5) [facility]2023-03-30 10:49:51 Test Item Value Reference Range Interpretation Comments MAGNESIUM (test code = 4252337710) 1.7 mg/dL 1.7-2.4 Lab Interpretation (test code = Normal 20594-7) [facility] METABOLIC PAN[facility] (NA, K, CL, CO2, GLUCOSE, BUN, CREATININE, CA)2022-11-20 01:11:20 Test Item Value Reference Range Interpretation Comments NA (test code = 126 mmol/L 135-145 L 5218146456) K (test code = 4.3 mmol/L 3.5-5.0 7856536707) CL (test code = 98 mmol/L 98-108 7609517153) CO2 TOTAL (test code = 19 mmol/L 23-31 L 1965810317) AGAP (test code = 9 2-16 1939997020) BUN (test code = 78 mg/dL 7-23 H 1262759183) GLUCOSE (test code = 101 mg/dL 70-110 9777443583) CREATININE (test code = 2.49 mg/dL 0.60-1.25 H 6648363698) CALCIUM (test code = 7.8 mg/dL 8.6-10.6 L 5215002592) eGFR (test code = 27.4 mL/min/1.73m2 1494423672) GILBERTO (test code = GILBERTO) Association of [...] tests). Lab Interpretation Abnormal (test code = 62950-6) [facility] METABOLIC PANEL (NA, K, CL, CO2, GLUCOSE, BUN, CREATININE, CA)2022-11-19 20:31:33 Test Item Value Reference Range Interpretation Comments NA (test code = 123 mmol/L 135-145 L 2340528315) K (test code = 4.4 mmol/L 3.5-5.0 6401935291) CL (test code = 97 mmol/L 98-108 L 4089391178) CO2 TOTAL (test code = 15 mmol/L 23-31 L 1421294875) AGAP (test code = 11 2-16 9576391049) BUN (test code = 81 mg/dL 7-23 H 4576485402) GLUCOSE (test code = 121 mg/dL 70-110 H 0962645649) CREATININE (test code = 2.61 mg/dL 0.60-1.25 H 7422622706) CALCIUM (test code = 7.7 mg/dL 8.6-10.6 L 4569028142) eGFR (test code = 25.9 mL/min/1.73m2 2206885198) GILBERTO (test code = GILBERTO) Association of [...] tests). Lab Interpretation Abnormal (test code = 58028-3) [facility]OL2023-[facility]-29 17:12:43 ALCOHOL<10mg/dL11/19/2022 12:12 PM CDTUT LABORATORY SERVICESToxic Greater than or equal to 80 mg/dL. NOTE: Whole blood values are approximately 10% to 15% lower than serum and plasma.[facility]. METABOLIC PANEL (28703)2022-11-19 16:28:25 Test Item Value Reference Range Interpretation Comments NA (test code = 126 mmol/L 135-145 L 0470147456) K (test code = 5.6 mmol/L 3.5-5.0 H 4448358798) CL (test code = 92 mmol/L 98-108 L 3975686429) CO2 TOTAL (test code = 14 mmol/L 23-31 L 2768255645) AGAP (test code = 20 2-16 H 3093246467) BUN (test code = 89 mg/dL 7-23 H 2235696999) GLUCOSE (test code = 98 mg/dL 70-110 1784861066) CREATININE (test code = 3.16 mg/dL 0.60-1.25 H 6497181866) TOTAL BILI (test code = 0.4 mg/dL 0.1-1.0 4217430232) CALCIUM (test code = 9.6 mg/dL 8.6-10.6 5858620967) T PROTEIN (test code = 8.0 g/dL 6.3-8.2 4052957636) ALBUMIN (test code = 5.0 g/dL 3.5-5.0 9046293924) ALK PHOS (test code = 102 U/L 34-122 1830305296) ALTv (test code = 38 U/L 5-50 1742-6) AST(SGOT) (test code = 32 U/L 13-40 8530794008) eGFR (test code = 20.8 mL/min/1.73m2 0596078829) GILBERTO (test code = GILBERTO) Association of [...] tests). Lab Interpretation Abnormal (test code = 11403-8) [id number]25 Test Item Value Reference Range Interpretation Comments MAGNESIUM (test code = 9431120433) 2.4 mg/dL 1.7-2.4 Lab Interpretation (test code = Normal 62238-6) [facility] WITH [id number] 16:12:44 Test Item Value Reference Range Interpretation Comments WBC (test code = 5.96 See_Comment [Automated 8054-2) message] The sy stem which generated this result transmitted reference range : 4.20 - 10.70 10*3/?L. The reference range was not used to interpret this result as normal/abnormal . RBC (test code = 4.73 See_Comment [Automated 886-2) message] The sy stem which generated this [...] RDW-SD (test code = 43.5 fL 38.5-51.6 14958-7) RDW-CV (test code = 14.0 % 12.1-15.4 788-0) PLT (test code = 446 See_Comment H [Automated 777-3) message] The sy stem which generated this result transmitted reference range : 150 - 328 10*3/ ?L. The reference r meredith was not used to interpret this result as normal/abnormal . MPV (test code = 9.0 fL 9.8-13.0 L 80727-6) NRBC/100 WBC (test 0.0 See_Comment [Automat ed code = [id number]) message] The system which generated this result transmitted reference range : 0.0 - 10.0 /100 WBCs. The refer ence range was not u sed to interpret th is result as normal/abnormal . NRBC x10^3 (test code See_Comment [Auto mated = [id number]) message] The s ystem which generated this result transmitted reference range : 10*3/?L. The reference range was not used to interpret this result as normal/abnormal . GRAN MAT (NEUT) % 73.7 % (test code = 770-8) IMM GRAN % (test code 0.30 % = [id number]) LYMPH % (test code = 17.3 % 736-9) MONO % (test code = 7.9 % 5905-5) EOS % (test code = 0.5 % 713-8) BASO % (test code = 0.3 % 706-2) GRAN MAT x10^3(ANC) 4.39 10*3/uL 1.99-6.95 (test code = 1373029041) IMM GRAN x10^3 (test 0.00-0.06 code = 1679372104) LYMPH x10^3 (test code 1.03 10*3/uL 1.09-3.23 L = 731-0) MONO x10^3 (test code 0.47 10*3/uL 0.36-1.02 = 742-7) EOS x10^3 (test code = 0.03 10*3/uL 0.06-0.53 L 711-2) BASO x10^3 (test code 0.01-0.09 = 704-7) Lab Interpretation Abnormal (test code = 54747-8) [facility] METABOLIC PANEL (NA, K, CL, CO2, GLUCOSE, BUN, CREATININE, CA)2022-11-04 21:24:07 Test Item Value Reference Range Interpretation Comments NA (test code = 129 mmol/L 135-145 L 4266670216) K (test code = 3.8 mmol/L 3.5-5.0 Slight 7108351879) hemolysis CL (test code = 105 mmol/L 98-108 9983391041) CO2 TOTAL (test code 16 mmol/L 23-31 L = 2878188770) AGAP (test code = 8 2-16 7148482227) BUN (test code = 19 mg/dL 7-23 Slight 2061404273) hemolysis GLUCOSE (test code = 88 mg/dL 70-110 4107272527) CREATININE (test code 1.10 mg/dL 0.60-1.25 = 7422776243) CALCIUM (test code = 7.9 mg/dL 8.6-10.6 L 9417640845) eGFR (test code = 70.3 mL/min/1.73m2 2209729072) GILBERTO (test code = GILBERTO) Association of [...] tests). Lab Interpretation Abnormal (test code = 37911-5) [facility]2023-03-14 18:44:02 Test Item Value Reference Range Interpretation Comments NA (test code = 2966761919) 128 mmol/L 135-145 L Lab Interpretation (test code = Abnormal 67634-8) [facility] [id number] 14:16:32 Test Item Value Reference Range Interpretation Comments T. VOL U (test code = 2400 mL 2201490120) HR COLLECT (test code 24 Hours = 7889743275) NA URINE (test code = mmol/L 9076762329) NA U/24H (test code = Unable to calculate 5853932949) because, SODIUM URINE is less than the s ensitivity of the analyzer . [facility] [id number] 13:51:27 Test Item Value Reference Range Interpretation Comments T. VOL U (test code = 2400 mL 7954041482) HR COLLECT (test code = 24 Hours 1090378492) K URINE (test code = 3.2 mmol/L 1913957580) K U/24H (test code = 7.7 See_Comment L [Autom ated message] 8080817757) The system niiu generated this result transmit dain reference range : 25.0 - 125.0 mmol/24H. The reference range was not used to interpret this result as normal/abnormal . Lab Interpretation Abnormal (test code = 17967-8) [facility] ([facility], K, CL, CO2, GLUCOSE, BUN, CREATININE, CA)2022-11-03 11:23:03 Test Item Value Reference Range Interpretation Comments NA (test code = 127 mmol/L 135-145 L 7329147906) K (test code = 3.4 mmol/L 3.5-5.0 L 3461822391) CL (test code = 102 mmol/L 98-108 2339668556) CO2 TOTAL (test code = 17 mmol/L 23-31 L 1187111973) AGAP (test code = 8 2-16 3303548948) BUN (test code = 38 mg/dL 7-23 H 2845219891) GLUCOSE (test code = 84 mg/dL 70-110 1212543265) CREATININE (test code = 1.44 mg/dL 0.60-1.25 H 0697373032) CALCIUM (test code = 8.0 mg/dL 8.6-10.6 L 1377944236) eGFR (test code = 51.5 mL/min/1.73m2 4532274752) GILBERTO (test code = GILBERTO) Association of [...] tests). Lab Interpretation Abnormal (test code = 85659-2) [facility] [id number] 11:20:32 Test Item Value Reference Range Interpretation Comments MAGNESIUM (test code = 1226067264) 1.8 mg/dL 1.7-2.4 Lab Interpretation (test code = Normal 81761-4) [facility] with [id number] 11:11:14 Test Item Value Reference Range Interpretation Comments WBC (test code = 7.33 See_Comment [Automated 6690-2) message] The sy stem which generated this result transmitted reference range : 4.20 - 10.70 10*3/?L. The reference range was not used to interpret this result as normal/abnormal . RBC (test code = 3.69 See_Comment L [Automated 889-8) message] The sy stem which generated this [...] RDW-SD (test code = 45.9 fL 38.5-51.6 12803-0) RDW-CV (test code = 14.4 % 12.1-15.4 788-0) PLT (test code = 301 See_Comment [Automated 777-3) message] The sy stem which generated this result transmitted reference range : 150 - 328 10*3/ ?L. The reference r meredith was not used to interpret this result as normal/abnormal . MPV (test code = 9.2 fL 9.8-13.0 L 42488-7) NRBC/100 WBC (test 0.0 See_Comment [Automat ed code = 2067167339) message] The system which generated this result transmitted reference range : 0.0 - 10.0 /100 WBCs. The refer ence range was not u sed to interpret th is result as normal/abnormal . NRBC x10^3 (test code See_Comment [Auto mated = 0147654042) message] The s ystem which generated this result transmitted reference range : 10*3/?L. The reference range was not used to interpret this result as normal/abnormal . GRAN MAT (NEUT) % 65.3 % (test code = 770-8) IMM GRAN % (test code 0.30 % = 9485748852) LYMPH % (test code = 23.9 % 736-9) MONO % (test code = 8.9 % 5905-5) EOS % (test code = 1.2 % 713-8) BASO % (test code = 0.4 % 706-2) GRAN MAT x10^3(ANC) 4.79 10*3/uL 1.99-6.95 (test code = 0075423034) IMM GRAN x10^3 (test 0.00-0.06 code = 7246710239) LYMPH x10^3 (test code 1.75 10*3/uL 1.09-3.23 = 731-0) MONO x10^3 (test code 0.65 10*3/uL 0.36-1.02 = 742-7) EOS x10^3 (test code = 0.09 10*3/uL 0.06-0.53 711-2) BASO x10^3 (test code 0.03 10*3/uL 0.01-0.09 = 704-7) Lab Interpretation Abnormal (test code = 87816-8) [facility]20[facility] 04:51:03 Test Item Value Reference Range Interpretation Comments NA (test code = 4096867558) 125 mmol/L 135-145 L Lab Interpretation (test code = Abnormal 65014-5) [facility] America[facility] Acid Whole [id number] 23:05:03 Test Item Value Reference Range Interpretation Comments LACTIC ACID (test code = 1.46 mmol/L 0.50-2.20 6629118141) Lab Interpretation (test code = Normal 93658-0) [facility]2023-03-12 21:19:07 Test Item Value Reference Range Interpretation Comments MAGNESIUM (test code = 3366615530) 2.1 mg/dL 1.7-2.4 Lab Interpretation (test code = Normal 36694-0) [facility] METABOLIC PAN[facility] (25010)2022-11-02 21:19:06 Test Item Value Reference Range Interpretation Comments NA (test code = 123 mmol/L 135-145 L 4651643312) K (test code = 3.9 mmol/L 3.5-5.0 4963814440) CL (test code = 98 mmol/L 98-108 9999629238) CO2 TOTAL (test code = 18 mmol/L 23-31 L 4119820727) AGAP (test code = 7 2-16 7127009102) BUN (test code = 55 mg/dL 7-23 H 3685358612) GLUCOSE (test code = 87 mg/dL 70-110 3535253757) CREATININE (test code = 2.31 mg/dL 0.60-1.25 H 1369202916) TOTAL BILI (test code = 0.4 mg/dL 0.1-1.3 8692268208) CALCIUM (test code = 8.3 mg/dL 8.6-10.6 L 8004641635) T PROTEIN (test code = 6.2 g/dL 6.3-8.2 L 4029649480) ALBUMIN (test code = 3.7 g/dL 3.5-5.0 1080693896) ALK PHOS (test code = 85 U/L 34-122 4542892878) ALTv (test code = 21 U/L 5-50 1742-6) AST(SGOT) (test code = 24 U/L 13-40 8959652977) eGFR (test code = 29.9 mL/min/1.73m2 2100428628) GILBERTO (test code = GILBERTO) Association of [...] tests). Lab Interpretation Abnormal (test code = 20210-4) [facility] America[facility]YROID STIMULATING [id number] 19:17:37 Test Item Value Reference Range Interpretation Comments TSH (test code = 3.84 See_Comment [Automated message] 8164344088) The system niiu generated this result transmitted ref erence range: 0.45 - 4 .70 mIU/L. The refe rence range was not u sed to interpret this result as normal/abnor mal. Lab Interpretation (test Normal code = 07112-5) [facility] AmericaFR [id number] 19:03:33 Test Item Value Reference Range Interpretation Comments FREE T4 (test code = 1.43 See_Comment [Autom ated message] 6491838257) The system niiu generated this result transmitted ref erence range: 0.78 - 2 .20 ng/dL:. The ref erence range was not u sed to interpret this result as normal/abnor mal. Lab Interpretation (test Normal code = 01818-3) [facility] America[facility]AT[facility] FUNCTION PANEL (11361) (ALB,T.PRO,BILI T,BU/BC,ALT,AST,ALK PHOS)2022-11-02 18:46:31 Test Item Value Reference Range Interpretation Comments TOTAL BILI (test code = 5762672762) 0.3 mg/dL 0.1-1.1 BILI UNCON (test code = 6475335587) 0.0 mg/dL 0.1-1.1 L BILI CONJ (test code = 1034538503) 0.0 mg/dL 0.0-0.3 T PROTEIN (test code = 6081785543) 6.7 g/dL 6.3-8.2 ALBUMIN (test code = 9303463622) 4.2 g/dL 3.5-5.0 ALK PHOS (test code = 9520150391) 101 U/L 34-122 ALTv (test code = 1742-6) 22 U/L 5-50 AST(SGOT) (test code = 5347858339) 25 U/L 13-40 Lab Interpretation (test code = Abnormal 90421-2) [facility] AmericaPhosphorus [id number] 18:46:31 Test Item Value Reference Range Interpretation Comments PHOSPHORUS (test code = 1723724733) 4.7 mg/dL 2.5-5.0 Lab Interpretation (test code = Normal 34386-7) [facility] AmericaL[facility] Acid Whole [id number] 17:37:44 Test Item Value Reference Range Interpretation Comments LACTIC ACID (test code = 2.67 mmol/L 0.50-2.20 H 7853778646) Lab Interpretation (test code = Abnormal 73111-7) [facility] AmericaTROPONIN [id number] 13:55:32 Test Item Value Reference Range Interpretation Comments TROPONIN I (test code = <=0.034 6275798934) GILBERTO (test code = GILBERTO) Reference (Normal) [...] biotin. Lab Interpretation Normal (test code = 96792-8) [facility]. METABOLIC PANEL (29934)2022-11-02 13:44:10 Test Item Value Reference Range Interpretation Comments NA (test code = 128 mmol/L 135-145 L 7171216407) K (test code = 5.1 mmol/L 3.5-5.0 H 2595138579) CL (test code = 94 mmol/L 98-108 L 5645059071) CO2 TOTAL (test code = 17 mmol/L 23-31 L 0533226037) AGAP (test code = 17 2-16 H 7349512684) BUN (test code = 61 mg/dL 7-23 H 5315834413) GLUCOSE (test code = 73 mg/dL 70-110 5645362269) CREATININE (test code = 3.83 mg/dL 0.60-1.25 H 8809756152) TOTAL BILI (test code = 0.6 mg/dL 0.1-1.5 2133713812) CALCIUM (test code = 10.3 mg/dL 8.6-10.6 8365894604) T PROTEIN (test code = 8.9 g/dL 6.3-8.2 H 1153004486) ALBUMIN (test code = 5.5 g/dL 3.5-5.0 H 1035994992) ALK PHOS (test code = 105 U/L 34-122 2016944722) ALTv (test code = 28 U/L 5-50 1742-6) AST(SGOT) (test code = 28 U/L 13-40 1627257743) eGFR (test code = 16.7 mL/min/1.73m2 5058412279) GILBERTO (test code = GILBERTO) Association of [...] tests). Lab Interpretation Abnormal (test code = 72827-4) [facility]2023-[facility]-12 13:44:10 Test Item Value Reference Range Interpretation Comments LIPASE (test code = 5329874210) 363 U/L 0-220 H Lab Interpretation (test code = Abnormal 53829-5) [facility]2023-03-12 13:44:10 Test Item Value Reference Range Interpretation Comments MAGNESIUM (test code = 3712613358) 2.6 mg/dL 1.7-2.4 H Lab Interpretation (test code = Abnormal 53031-3) [facility] WITH [id number] 13:32:52 Test Item Value Reference Range Interpretation Comments WBC (test code = 10.22 See_Comment [Automated 3308-2) message] The sy stem which generated this result transmitted reference range : 4.20 - 10.70 10*3/?L. The reference range was not used to interpret this result as normal/abnormal . RBC (test code = 5.11 See_Comment [Automated 013-0) message] The sy stem which generated this [...] RDW-SD (test code = 46.5 fL 38.5-51.6 60103-3) RDW-CV (test code = 14.5 % 12.1-15.4 788-0) PLT (test code = 405 See_Comment H [Automated 777-3) message] The sy stem which generated this result transmitted reference range : 150 - 328 10*3/ ?L. The reference r meredith was not used to interpret this result as normal/abnormal . MPV (test code = 9.0 fL 9.8-13.0 L 33672-8) NRBC/100 WBC (test 0.0 See_Comment [Automat ed code = 4478661312) message] The system which generated this result transmitted reference range : 0.0 - 10.0 /100 WBCs. The refer ence range was not u sed to interpret th is result as normal/abnormal . NRBC x10^3 (test code See_Comment [Auto mated = 2369468182) message] The s ystem which generated this result transmitted reference range : 10*3/?L. The reference range was not used to interpret this result as normal/abnormal . GRAN MAT (NEUT) % 72.2 % (test code = 770-8) IMM GRAN % (test code 0.70 % = 9538526642) LYMPH % (test code = 17.5 % 736-9) MONO % (test code = 8.4 % 5905-5) EOS % (test code = 0.8 % 713-8) BASO % (test code = 0.4 % 706-2) GRAN MAT x10^3(ANC) 7.38 10*3/uL 1.99-6.95 H (test code = 2132861511) IMM GRAN x10^3 (test 0.07 10*3/uL 0.00-0.06 H code = 7970545474) LYMPH x10^3 (test code 1.79 10*3/uL 1.09-3.23 = 731-0) MONO x10^3 (test code 0.86 10*3/uL 0.36-1.02 = 742-7) EOS x10^3 (test code = 0.08 10*3/uL 0.06-0.53 711-2) BASO x10^3 (test code 0.04 10*3/uL 0.01-0.09 = 704-7) Lab Interpretation Abnormal (test code = 27828-3) [facility]2023-[facility] 02:09:43 Test Item Value Reference Range Interpretation Comments LIPASE (test code = 4511580182) 260 U/L 0-220 H Lab Interpretation (test code = Abnormal 68157-3) [facility] METABOLIC PANEL (43777)2022-10-20 02:09:42 Test Item Value Reference Range Interpretation Comments NA (test code = 130 mmol/L 135-145 L 7751530544) K (test code = 4.6 mmol/L 3.5-5.0 Slight 1948007325) hemolysis CL (test code = 100 mmol/L 98-108 6433143863) CO2 TOTAL (test code 20 mmol/L 23-31 L = 1160427515) AGAP (test code = 10 2-16 5242767143) BUN (test code = 31 mg/dL 7-23 H Slight 9337745443) hemolysis GLUCOSE (test code = 90 mg/dL 70-110 3987311387) CREATININE (test code 1.67 mg/dL 0.60-1.25 H = 2910838597) TOTAL BILI (test code 0.6 mg/dL 0.1-1.1 = 0053752906) CALCIUM (test code = 9.0 mg/dL 8.6-10.6 9059022806) T PROTEIN (test code 7.1 g/dL 6.3-8.2 = 1426759199) ALBUMIN (test code = 4.5 g/dL 3.5-5.0 8453430388) ALK PHOS (test code = 73 U/L 34-122 Slight 6351642132) hemolysis ALTv (test code = 22 U/L 5-50 1742-6) AST(SGOT) (test code 29 U/L 13-40 Slight = 9721659123) hemolysis eGFR (test code = 43.4 mL/min/1.73m2 3702441999) GILBERTO (test code = GILBERTO) Association of [...] tests). Lab Interpretation Abnormal (test code = 14494-5) [facility]2023-[facility]-27 02:09:42 Test Item Value Reference Range Interpretation Comments MAGNESIUM (test code = 6400138318) 1.9 mg/dL 1.7-2.4 Lab Interpretation (test code = Normal 56878-4) [facility] WITH [id number] 02:02:05 Test Item Value Reference Range Interpretation Comments WBC (test code = 9.57 See_Comment [Automated 3825-2) message] The sy stem which generated this result transmitted reference range : 4.20 - 10.70 10*3/?L. The reference range was not used to interpret this result as normal/abnormal . RBC (test code = 4.09 See_Comment L [Automated 789-8) message] The sy [...] RDW-SD (test code = 51.4 fL 38.5-51.6 37599-3) RDW-CV (test code = 15.7 % 12.1-15.4 H 788-0) PLT (test code = 330 See_Comment H [Automated 777-3) message] The sy stem which generated this result transmitted reference range : 150 - 328 10*3/ ?L. The reference r meredith was not used to interpret this result as normal/abnormal . MPV (test code = 8.9 fL 9.8-13.0 L 34263-6) NRBC/100 WBC (test 0.0 See_Comment [Automat ed code = 3941408124) message] The system which generated this result transmitted reference range : 0.0 - 10.0 /100 WBCs. The refer ence range was not u sed to interpret th is result as normal/abnormal . NRBC x10^3 (test code See_Comment [Auto mated = 2726514699) message] The s ystem which generated this result transmitted reference range : 10*3/?L. The reference range was not used to interpret this result as normal/abnormal . GRAN MAT (NEUT) % 64.1 % (test code = 770-8) IMM GRAN % (test code 0.40 % = 6654648997) LYMPH % (test code = 22.7 % 736-9) MONO % (test code = 11.0 % 5905-5) EOS % (test code = 1.3 % 713-8) BASO % (test code = 0.5 % 706-2) GRAN MAT x10^3(ANC) 6.14 10*3/uL 1.99-6.95 (test code = 3423318774) IMM GRAN x10^3 (test 0.04 10*3/uL 0.00-0.06 code = 4688176026) LYMPH x10^3 (test code 2.17 10*3/uL 1.09-3.23 = 731-0) MONO x10^3 (test code 1.05 10*3/uL 0.36-1.02 H = 742-7) EOS x10^3 (test code = 0.12 10*3/uL 0.06-0.53 711-2) BASO x10^3 (test code 0.05 10*3/uL 0.01-0.09 = 704-7) Lab Interpretation Abnormal (test code = 58784-3) [facility] METABOLIC PANEL (NA, K, CL, CO2, GLUCOSE, BUN, CREATININE, CA)2022-05-21 12:12:49 Test Item Value Reference Range Interpretation Comments NA (test code = 132 mmol/L 135-145 L 5670079702) K (test code = 3.4 mmol/L 3.5-5 L 1764342002) CL (test code = 106 mmol/L 98-108 6379949047) CO2 TOTAL (test code = 22 mmol/L 23-31 L 5009050083) AGAP (test code = 2-16 2096315522) BUN (test code = 22 mg/dL 7-23 4682856920) GLUCOSE (test code = 87 mg/dL 70-110 4556168406) CREATININE (test code = 0.98 mg/dL 0.6-1.25 4167926874) CALCIUM (test code = 7.8 mg/dL 8.6-10.6 L 1971756592) eGFR (test code = mL/min/1.73m2 6846089483) GILBERTO (test code = GILBERTO) Association of [...] tests). Lab Interpretation Abnormal (test code = 31603-5) [facility]2022-09-28 12:12:49 Test Item Value Reference Range Interpretation Comments MAGNESIUM (test code = 2183771760) 1.7 mg/dL 1.7-2.4 Lab Interpretation (test code = Normal 32072-3) [facility]2022-09-28 12:12:29 Test Item Value Reference Range Interpretation Comments PHOSPHORUS (test code = 4263465837) 2.3 mg/dL 2.5-5 L Lab Interpretation (test code = Abnormal 50919-8) [facility] WITH [id number] 11:40:10 Test Item Value Reference Range Interpretation [...] RDW-SD (test code = 46.9 fL 38.5-51.6 47288-2) RDW-CV (test code = 15.4 % 12.1-15.4 788-0) PLT (test code = See_Comment [Automated 777-3) message] The sy stem which generated this result transmitted reference range : 150 - 328 10*3/ ?L. The reference r meredith was not used to interpret this result as normal/abnormal . MPV (test code = 9.3 fL 9.8-13 L 94379-3) NRBC/100 WBC (test See_Comment [Automat ed code = 7201326643) message] The system which generated this result transmitted reference range : 0.0 - 10.0 /100 WBCs. The refer ence range was not u sed to interpret th is result as normal/abnormal . NRBC x10^3 (test code See_Comment [Auto mated = 7477255911) message] The s ystem which generated this result transmitted reference range : 10*3/?L. The reference range was not used to interpret this result as normal/abnormal . GRAN MAT (NEUT) % 69.3 % (test code = 770-8) IMM GRAN % (test code 0.20 % = 4587352018) LYMPH % (test code = 18.2 % 736-9) MONO % (test code = 9.9 % 5905-5) EOS % (test code = 2.0 % 713-8) BASO % (test code = 0.4 % 706-2) GRAN MAT x10^3(ANC) 3.51 10*3/uL 1.99-6.95 (test code = 2915158314) IMM GRAN x10^3 (test 0-0.06 code = 1867184818) LYMPH x10^3 (test code 0.92 10*3/uL 1.09-3.23 L = 731-0) MONO x10^3 (test code 0.50 10*3/uL 0.36-1.02 = 742-7) EOS x10^3 (test code = 0.10 10*3/uL 0.06-0.53 711-2) BASO x10^3 (test code 0.01-0.09 = 704-7) Lab Interpretation Abnormal (test code = 77710-3) [facility]. METABOLIC PANEL (81588)2022-05-20 01:54:47 Test Item Value Reference Range Interpretation Comments NA (test code = 131 mmol/L 135-145 L 7673874593) K (test code = 4.6 mmol/L 3.5-5 0622488605) CL (test code = 102 mmol/L 98-108 7875191876) CO2 TOTAL (test code = 16 mmol/L 23-31 L 4791206900) AGAP (test code = 2-16 4651198082) BUN (test code = 46 mg/dL 7-23 H 1956339401) GLUCOSE (test code = 98 mg/dL 70-110 9641162371) CREATININE (test code = 1.88 mg/dL 0.6-1.25 H 3026636521) TOTAL BILI (test code = 0.7 mg/dL 0.1-1.9 9887120173) CALCIUM (test code = 9.1 mg/dL 8.6-10.6 5192251424) T PROTEIN (test code = 7.3 g/dL 6.3-8.2 4144894715) ALBUMIN (test code = 4.8 g/dL 3.5-5 1411082344) ALK PHOS (test code = 72 U/L 34-122 3820901424) ALTv (test code = 26 U/L 5-50 1742-6) AST(SGOT) (test code = 27 U/L 13-40 8505744929) eGFR (test code = mL/min/1.73m2 6414413625) GILBERTO (test code = GILBERTO) Association of [...] tests). Lab Interpretation Abnormal (test code = 09491-5) [facility] 01:54:47 Test Item Value Reference Range Interpretation Comments LIPASE (test code = 2960810903) 263 U/L 0-220 H Lab Interpretation (test code = Abnormal 25187-8) [facility] WITH [id number] 01:43:49 Test Item Value Reference Range Interpretation [...] RDW-SD (test code = 46.0 fL 38.5-51.6 67510-6) RDW-CV (test code = 15.4 % 12.1-15.4 788-0) PLT (test code = See_Comment H [Automated 777-3) message] The sy stem which generated this result transmitted reference range : 150 - 328 10*3/ ?L. The reference r meredith was not used to interpret this result as normal/abnormal . MPV (test code = 9.7 fL 9.8-13 L 99887-7) NRBC/100 WBC (test See_Comment [Automat ed code = 1653152442) message] The system which generated this result transmitted reference range : 0.0 - 10.0 /100 WBCs. The refer ence range was not u sed to interpret th is result as normal/abnormal . NRBC x10^3 (test code See_Comment [Auto mated = 1434297340) message] The s ystem which generated this result transmitted reference range : 10*3/?L. The reference range was not used to interpret this result as normal/abnormal . GRAN MAT (NEUT) % 64.5 % (test code = 770-8) IMM GRAN % (test code 0.40 % = 5943415248) LYMPH % (test code = 24.7 % 736-9) MONO % (test code = 9.2 % 5905-5) EOS % (test code = 0.7 % 713-8) BASO % (test code = 0.5 % 706-2) GRAN MAT x10^3(ANC) 5.20 10*3/uL 1.99-6.95 (test code = 0241531876) IMM GRAN x10^3 (test 0.03 10*3/uL 0-0.06 code = 9611263324) LYMPH x10^3 (test code 1.99 10*3/uL 1.09-3.23 = 731-0) MONO x10^3 (test code 0.74 10*3/uL 0.36-1.02 = 742-7) EOS x10^3 (test code = 0.06 10*3/uL 0.06-0.53 711-2) BASO x10^3 (test code 0.04 10*3/uL 0.01-0.09 = 704-7) Lab Interpretation Abnormal (test code = 76753-3) [facility] WITH [id number] 05:06:34 Test Item Value Reference Range Interpretation [...] (test code = 56.7 fL 38.5-51.6 H 92486-0) RDW-CV (test code = 17.4 % 12.1-15.4 H 788-0) PLT (test code = See_Comment [Automated 777-3) message] The sy stem which generated this result transmitted reference range : 150 - 328 10*3/ ?L. The reference r meredith was not used to interpret this result as normal/abnormal . MPV (test code = 9.5 fL 9.8-13 L 51947-6) NRBC/100 WBC (test See_Comment [Automat ed code = 0918476392) message] The system which generated this result transmitted reference range : 0.0 - 10.0 /100 WBCs. The refer ence range was not u sed to interpret th is result as normal/abnormal . NRBC x10^3 (test code See_Comment [Auto mated = [id number]) message] The s ystem which generated this result transmitted reference range : 10*3/?L. The reference range was not used to interpret this result as normal/abnormal . SEG % (test code = 56 % 33-76 00652-2) LYMPH % (test code = 28 % 14-54 54530-9) MONO % (test code = 12 % 0-4 H 46862-1) EOS % (test code = 4 % 0-3 H 96194-3) ANC (test code = 4.72 10*3/uL 1.99-6.95 753-4) PLT ESTIMATE (test Normal Normal code = 9317-9) Lab Interpretation Abnormal (test code = 45337-7) [facility]. METABOLIC PANEL (01125)2022-04-10 04:19:15 Test Item Value Reference Range Interpretation Comments NA (test code = 137 mmol/L 135-145 6659289894) K (test code = 4.6 mmol/L 3.5-5 6902338616) CL (test code = 108 mmol/L 98-108 6267247863) CO2 TOTAL (test code = 22 mmol/L 23-31 L 7952159570) AGAP (test code = 2-16 5075596125) BUN (test code = 16 mg/dL 7-23 1630107825) GLUCOSE (test code = 96 mg/dL 70-110 4433728711) CREATININE (test code = 1.35 mg/dL 0.6-1.25 H 3083552061) TOTAL BILI (test code = 0.4 mg/dL 0.1-1.8 1269010003) CALCIUM (test code = 9.1 mg/dL 8.6-10.6 7863428449) T PROTEIN (test code = 5.5 g/dL 6.3-8.2 L 7407004881) ALBUMIN (test code = 3.9 g/dL 3.5-5 4265137860) ALK PHOS (test code = 58 U/L 34-122 7989379507) ALTv (test code = 41 U/L 5-50 1742-6) AST(SGOT) (test code = 42 U/L 13-40 H 7574733511) eGFR (test code = mL/min/1.73m2 9636529046) GILBERTO (test code = GILBERTO) Association of [...] tests). Lab Interpretation Abnormal (test code = 81588-9) [facility] Test Item Value Reference Range Interpretation Comments LIPASE (test code = 3259751744) 90 U/L 0-220 Lab Interpretation (test code = Normal 76988-5) [facility] AmericaMAGNESIUM2022-08-16 12:00:33 Test Item Value Reference Range Interpretation Comments MAGNESIUM (test code = 1473077159) 1.5 mg/dL 1.7-2.4 L Lab Interpretation (test code = Abnormal 83616-1) [facility] METABOLIC PANEL (NA, K, CL, CO2, GLUCOSE, BUN, CREATININE, CA)2022-04-08 11:12:32 Test Item Value Reference Range Interpretation Comments NA (test code = 136 mmol/L 135-145 3595910121) K (test code = 4.1 mmol/L 3.5-5 0489344674) CL (test code = 108 mmol/L 98-108 5017499185) CO2 TOTAL (test code = 25 mmol/L 23-31 4963877005) AGAP (test code = 2-16 9243491881) BUN (test code = 10 mg/dL 7-23 7295685932) GLUCOSE (test code = 82 mg/dL 70-110 8140791701) CREATININE (test code = 1.10 mg/dL 0.6-1.25 9386301001) CALCIUM (test code = 8.3 mg/dL 8.6-10.6 L 0752794130) eGFR (test code = mL/min/1.73m2 5286544374) GILBERTO (test code = GILBERTO) Association of [...] tests). Lab Interpretation Abnormal (test code = 21991-0) [facility]16 11:12:32 Test Item Value Reference Range Interpretation Comments PHOSPHORUS (test code = 0477776648) 2.5 mg/dL 2.5-5 Lab Interpretation (test code = Normal 06366-3) [facility] WITH [id number] 10:47:27 Test Item Value Reference Range Interpretation [...] (test code = 54.4 fL 38.5-51.6 H 83336-9) RDW-CV (test code = 16.9 % 12.1-15.4 H 788-0) PLT (test code = See_Comment [Automated 777-3) message] The sy stem which generated this result transmitted reference range : 150 - 328 10*3/ ?L. The reference r meredith was not used to interpret this result as normal/abnormal . MPV (test code = 9.7 fL 9.8-13 L 13841-6) NRBC/100 WBC (test See_Comment [Automat ed code = 7373049511) message] The system which generated this result transmitted reference range : 0.0 - 10.0 /100 WBCs. The refer ence range was not u sed to interpret th is result as normal/abnormal . NRBC x10^3 (test code See_Comment [Auto mated = 0527571373) message] The s ystem which generated this result transmitted reference range : 10*3/?L. The reference range was not used to interpret this result as normal/abnormal . GRAN MAT (NEUT) % 54.7 % (test code = 770-8) IMM GRAN % (test code 0.40 % = 7886321427) LYMPH % (test code = 33.8 % 736-9) MONO % (test code = 8.7 % 5905-5) EOS % (test code = 2.0 % 713-8) BASO % (test code = 0.4 % 706-2) GRAN MAT x10^3(ANC) 2.95 10*3/uL 1.99-6.95 (test code = 8751805586) IMM GRAN x10^3 (test 0-0.06 code = 2366009702) LYMPH x10^3 (test code 1.82 10*3/uL 1.09-3.23 = 731-0) MONO x10^3 (test code 0.47 10*3/uL 0.36-1.02 = 742-7) EOS x10^3 (test code = 0.11 10*3/uL 0.06-0.53 711-2) BASO x10^3 (test code 0.01-0.09 = 704-7) Lab Interpretation Abnormal (test code = 73767-5) [facility] METABOLIC PANEL (NA, K, CL, CO2, GLUCOSE, BUN, CREATININE, CA)2022-04-06 09:47:17 Test Item Value Reference Range Interpretation Comments NA (test code = 134 mmol/L 135-145 L 7610293399) K (test code = 4.2 mmol/L 3.5-5 Slight 9983694865) hemolysis CL (test code = 114 mmol/L 98-108 H 6085204089) CO2 TOTAL (test code 16 mmol/L 23-31 L = 3450185631) AGAP (test code = 2-16 7679906730) BUN (test code = 16 mg/dL 7-23 Slight 5189440602) hemolysis GLUCOSE (test code = 79 mg/dL 70-110 9076284470) CREATININE (test code 1.00 mg/dL 0.6-1.25 = 3082613184) CALCIUM (test code = 7.5 mg/dL 8.6-10.6 L 6179979659) eGFR (test code = mL/min/1.73m2 3406076884) GILBERTO (test code = GILBERTO) Association of [...] tests). Lab Interpretation Abnormal (test code = 18606-7) [facility] 09:47:17 Test Item Value Reference Range Interpretation Comments MAGNESIUM (test code = 4406611613) 1.2 mg/dL 1.7-2.4 L Lab Interpretation (test code = Abnormal 51619-4) [facility] AmericaLactic Acid Whole [id number] 09:16:49 Test Item Value Reference Range Interpretation Comments LACTIC ACID (test code = 1.35 mmol/L 0.5-2.2 4913342711) Lab Interpretation (test code = Normal 34687-8) [facility] WITH [id number] 09:13:32 Test Item Value Reference Range Interpretation [...] (test code = 52.4 fL 38.5-51.6 H 51190-1) RDW-CV (test code = 16.6 % 12.1-15.4 H 788-0) PLT (test code = See_Comment [Automated 777-3) message] The sy stem which generated this result transmitted reference range : 150 - 328 10*3/ ?L. The reference r meredith was not used to interpret this result as normal/abnormal . MPV (test code = 10.0 fL 9.8-13 33931-1) NRBC/100 WBC (test See_Comment [Automat ed code = 7353653011) message] The system which generated this result transmitted reference range : 0.0 - 10.0 /100 WBCs. The refer ence range was not u sed to interpret th is result as normal/abnormal . NRBC x10^3 (test code See_Comment [Auto mated = 3781025954) message] The s ystem which generated this result transmitted reference range : 10*3/?L. The reference range was not used to interpret this result as normal/abnormal . GRAN MAT (NEUT) % 48.6 % (test code = 770-8) IMM GRAN % (test code 0.20 % = 0813576602) LYMPH % (test code = 39.4 % 736-9) MONO % (test code = 9.3 % 5905-5) EOS % (test code = 1.9 % 713-8) BASO % (test code = 0.6 % 706-2) GRAN MAT x10^3(ANC) 2.36 10*3/uL 1.99-6.95 (test code = 8572225704) IMM GRAN x10^3 (test 0-0.06 code = 2952444041) LYMPH x10^3 (test code 1.91 10*3/uL 1.09-3.23 = 731-0) MONO x10^3 (test code 0.45 10*3/uL 0.36-1.02 = 742-7) EOS x10^3 (test code = 0.09 10*3/uL 0.06-0.53 711-2) BASO x10^3 (test code 0.03 10*3/uL 0.01-0.09 = 704-7) Lab Interpretation Abnormal (test code = 90101-3) [facility] Test Item Value Reference Range Interpretation Comments MAGNESIUM (test code = 7133451039) 1.8 mg/dL 1.7-2.4 Lab Interpretation (test code = Normal 23708-0) [facility] BLO[facility] [id number] 18:40:18 Test Item Value Reference Range Interpretation Comments PH (test code = 7.32-7.42 L 6378935088) PCO2 PANKAJ (test code = See_Comment [Auto mated message] 5524385934) The system niiu generated this result transmitted ref erence range: 41 - 51 mmHg. The reference r meredith was not used to interpret this result as normal/abnor mal. PO2 PANKAJ (test code = See_Comment L [Autom ated message] 2036652167) The system niiu generated this result transmitted ref erence range: 25 - 40 mmHg. The reference r meredith was not used to interpret this result as normal/abnor mal. HCO3 PANKAJ (test code = See_Comment L [Auto mated message] 9773305683) The system niiu generated this result transmitted ref erence range: 24 - 28 mEq/L. The reference r meredith was not used to interpret this result as normal/abnor mal. AC VBE(BEAKER) (test mEq/L code = 9014974453) Lab Interpretation (test Abnormal code = 60654-8) [facility] (NA, K, CL, CO2, GLUCOSE, BUN, CREATININE, CA)2022-04-03 18:33:26 Test Item Value Reference Range Interpretation Comments NA (test code = 129 mmol/L 135-145 L 6019481567) K (test code = 3.3 mmol/L 3.5-5 L 1589349469) CL (test code = 100 mmol/L 98-108 1208204202) CO2 TOTAL (test code = 19 mmol/L 23-31 L 3649559495) AGAP (test code = 2-16 6724969794) BUN (test code = 49 mg/dL 7-23 H 3958494116) GLUCOSE (test code = 75 mg/dL 70-110 6314321268) CREATININE (test code = 2.55 mg/dL 0.6-1.25 H 6176474685) CALCIUM (test code = 8.6 mg/dL 8.6-10.6 6543192213) eGFR (test code = mL/min/1.73m2 7584052835) GILBERTO (test code = GILBERTO) Association of [...] tests). Lab Interpretation Abnormal (test code = 96187-2) [facility] AmericaOSMOLALITY, SERUM OR [id number] 15:45:31 Test Item Value Reference Range Interpretation Comments OSMOLALITY (test code = See_Comment [Au tomated message] 1712-2) The system [employer] h generated this result transmitted ref erence range: 278 - 30 5 mOsm/kg. The re ference range was not u sed to interpret this result as normal/abnor mal. Lab Interpretation (test Normal code = 16691-3) [facility] AmericaCB with [id number] 11:27:34 Test Item Value Reference Range Interpretation Comments WBC (test code = See_Comment [Automated 8590-2) message] The sy stem which generated this [...] RDW-SD (test code = 48.7 fL 38.5-51.6 54243-6) RDW-CV (test code = 15.9 % 12.1-15.4 H 788-0) PLT (test code = See_Comment [Automated 777-3) message] The sy stem which generated this result transmitted reference range : 150 - 328 10*3/ ?L. The reference r meredith was not used to interpret this result as normal/abnormal . MPV (test code = 9.4 fL 9.8-13 L 42209-5) NRBC/100 WBC (test See_Comment [Automat ed code = 5589240738) message] The system which generated this result transmitted reference range : 0.0 - 10.0 /100 WBCs. The refer ence range was not u sed to interpret th is result as normal/abnormal . NRBC x10^3 (test code See_Comment [Auto mated = 4200864941) message] The s ystem which generated this result transmitted reference range : 10*3/?L. The reference range was not used to interpret this result as normal/abnormal . GRAN MAT (NEUT) % 56.0 % (test code = 770-8) IMM GRAN % (test code 0.50 % = 0800406632) LYMPH % (test code = 33.2 % 736-9) MONO % (test code = 8.6 % 5905-5) EOS % (test code = 1.1 % 713-8) BASO % (test code = 0.6 % 706-2) GRAN MAT x10^3(ANC) 3.64 10*3/uL 1.99-6.95 (test code = 4649530931) IMM GRAN x10^3 (test 0.03 10*3/uL 0-0.06 code = 7956065994) LYMPH x10^3 (test code 2.16 10*3/uL 1.09-3.23 = 731-0) MONO x10^3 (test code 0.56 10*3/uL 0.36-1.02 = 742-7) EOS x10^3 (test code = 0.07 10*3/uL 0.06-0.53 711-2) BASO x10^3 (test code 0.04 10*3/uL 0.01-0.09 = 704-7) Lab Interpretation Abnormal (test code = 08613-1) [facility] Metabolic Panel (NA, K, CL, CO2, GLUCOSE, BUN, CREATININE, CA)2022-04-03 10:08:59 Test Item Value Reference Range Interpretation Comments NA (test code = 125 mmol/L 135-145 L 4522293155) K (test code = 3.7 mmol/L 3.5-5 8507845165) CL (test code = 96 mmol/L 98-108 L 0833192745) CO2 TOTAL (test code = 15 mmol/L 23-31 L 2947921151) AGAP (test code = 2-16 4537740507) BUN (test code = 50 mg/dL 7-23 H 0546684311) GLUCOSE (test code = 86 mg/dL 70-110 8967431713) CREATININE (test code = 3.86 mg/dL 0.6-1.25 H 7339997182) CALCIUM (test code = 8.6 mg/dL 8.6-10.6 0227760487) eGFR (test code = mL/min/1.73m2 8823963383) GILBERTO (test code = GILBERTO) Association of [...] tests). Lab Interpretation Abnormal (test code = 92636-7) [facility] AmericaLactic Acid Whole [id number] 04:09:02 Test Item Value Reference Range Interpretation Comments LACTIC ACID (test code = 1.54 mmol/L 0.5-2.2 6525934426) Lab Interpretation (test code = Normal 93662-9) [facility] AmericaL[facility] Acid Whole [id number] 00:25:08 Test Item Value Reference Range Interpretation Comments LACTIC ACID (test code = 2.50 mmol/L 0.5-2.2 H 5500681617) Lab Interpretation (test code = Abnormal 14981-1) [facility] WITH [id number] 20:19:45 Test Item Value Reference Range Interpretation Comments WBC (test code = See_Comment H [Automated 6844-2) message] The system which generated this result transmit dain reference range : 4.20 - 10.70 10*3/?L. The reference range was not used to interpret this result as normal/abnormal . RBC (test code = See_Comment [Automated 137-8) message] The system which generated this result [...] RDW-SD (test code = 49.8 fL 38.5-51.6 24944-7) RDW-CV (test code = 16.4 % 12.1-15.4 H 788-0) PLT (test code = See_Comment H [Automated 777-3) message] The system which generated this result transmit dain reference range : 150 - 328 10*3/ ?L. The reference range was not u sed to interpret th is result as normal/abnormal . MPV (test code = 10.7 fL 9.8-13 86361-9) NRBC/100 WBC (test See_Comment [Automat ed code = 7694107051) message] The system which generated this result transmit dain reference range : 0.0 - 10.0 /100 WBCs. The reference range was not used to interpret this result as normal/abnormal . NRBC x10^3 (test code See_Comment [Auto mated = 3320710299) message] The system which generated this result transmit dain reference range : 10*3/?L. The reference range was not used to interpret this result as normal/abnormal . GRAN MAT (NEUT) % 73.4 % (test code = 770-8) IMM GRAN % (test code 0.60 % = 3101339486) LYMPH % (test code = 17.2 % 736-9) MONO % (test code = 8.2 % 5905-5) EOS % (test code = 0.2 % 713-8) BASO % (test code = 0.4 % 706-2) GRAN MAT x10^3(ANC) 10.17 10*3/uL 1.99-6.95 H (test code = 9827845461) IMM GRAN x10^3 (test 0.09 10*3/uL 0-0.06 H code = 8709327152) LYMPH x10^3 (test code 2.38 10*3/uL 1.09-3.23 = 731-0) MONO x10^3 (test code 1.13 10*3/uL 0.36-1.02 H = 742-7) EOS x10^3 (test code = 0.03 10*3/uL 0.06-0.53 L 711-2) BASO x10^3 (test code 0.05 10*3/uL 0.01-0.09 = 704-7) Lab Interpretation Abnormal (test code = 09505-3) [facility] W/AUTO [id number] 00:06:00 Test Item Value Reference Range Interpretation [...] = MX#) 0.5 k/mm3 0.1-0.8 N TROPONIN-I [id number] 15:07:00 Test Item Value Reference Range Interpretation Comments TROPONIN-I RAPID 0.00 ng/mL 0.00-0.08 N Performed b y certified (test code = 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 [facility] TROPIRA) Ctr Negative: < = 0.08 [...] changes in trop onin levels characteristic of SC. BASIC METABOLIC [id number] 14:56:00 Test Item Value Reference Range Interpretation [...] MG/DL 70-110 N - XR CHEST 1 [id number] 00:00:00 [facility] 1970 Sex: M FAX: Sabi Kirby MD [phone] [place]: [place] St: REG Name: HOANG MCNEILL FSED : 1970 Age/S: 52/M [address] [facility] Unit #: [id number] Loc: [place] [address] Phys: Sabi Urias MD Acct: [id number] Dis Date: Status: REG ER PHONE #: Exam Date: 03/29/2022 1507 FAX #: Reason: Weakness EXAMS: CPT CODE:[id number] XR CHEST 1 V 34104 PROCEDURE INFORMATION: Exam: XR Chest Exam date [...] MD Technologist: RT Simone(R)(CT) Trnscrd Date/Time/By: 03/29/2022 (153) : By: GarettTTV Orig Print D/T: S: 03/29/2022 (1531) PAGE 1 Signed ReportHEPATIC FUNCTION [id number] 06:45:03 Test Item Value Reference Range Interpretation [...] (test code = 13 U/L 6-55 347) Cardiovascular Sonographer ID Philipp HOOD WBASIC METABOLIC [id number] 06:45:02 Test Item Value Reference Range Interpretation [...] S NOT APPLICABLE FOR DIALYSIS PATIEN TS. Cardiovascular Sonographer ID Philipp HOOD WCBC W/PLT COUNT & AUTO [id number] 06:26:54 Test Item Value Reference Range Interpretation [...] (BEAKER) (test code = 2801) U/S, RENAL, [id number] 19:23:00Reason for exam:->[facility] 1970 Sex: MFINAL REPORT [...] Signed: Amberly Praterort Verified Date/Time: 03/06/2022 19:23:41 Electronically signed by: AMBERYL PRATER MD on 207:23 PM SARS-CoV2/RT-PCR (Asymptomatic ONLY)2022-03-06 19:17:07 Test Item Value Reference Interpretation Comments Range SARS-COV2/RT-PCR Negative Negative The SARS-Co V-2 (test code = target nucleic 13464-6) acids are not detected in thi s [...] revoked sooner. Fact Sheet for Healthcare Providers: https://www.Treatsie/Documents/Xp ert%20Xpress%20SAR S%20CoV-2/Fact%20S heets/302-3802%20S ARS-COV-2%20HEALTH CARE%20PROVIDERS%2 0FACT%20SHEET.pdf Fact Sheet for Healthcare Patients: https://wwwzeenworld/Documents/Xp ert%20Xpress%20SAR S%20CoV-2/Fact%20S heets/302-3801%20S ARS-COV-2%20PATIEN T%20FACT%20SHEET.p df Lab Interpretation Normal (test code = 87338-0) [facility] ONLY[facility]2022-03-06 19:17:07 Test Item Value Reference Interpretation Comments Range SARS-COV2/RT-PCR Negative Negative The SARS-Co V-2 (test code = target nucleic 22419-6) acids are not detected in thi s [...] revoked sooner. Fact Sheet for Healthcare Providers: https://www.Treatsie/Documents/Xp ert%20Xpress%20SAR S%20CoV-2/Fact%20S heets/302-3802%20S ARS-COV-2%20HEALTH CARE%20PROVIDERS%2 0FACT%20SHEET.pdf Fact Sheet for Healthcare Patients: https://wwwzeenworld/Documents/Xp ert%20Xpress%20SAR S%20CoV-2/Fact%20S heets/302-3801%20S ARS-COV-2%20PATIEN T%20FACT%20SHEET.p df Lab Interpretation Normal (test code = 66432-9) [facility] (Asymptomatic ONLY)2022-03-06 19:17:07 Test Item Value Reference Interpretation Comments Range SARS-COV2/RT-PCR Negative Negative The SARS-Co V-2 (test code = target nucleic 06958-6) acids are not detected in thi s [...] revoked sooner. Fact Sheet for Healthcare Providers: https://www.Treatsie/Documents/Xp ert%20Xpress%20SAR S%20CoV-2/Fact%20S heets/302-3802%20S ARS-COV-2%20HEALTH CARE%20PROVIDERS%2 0FACT%20SHEET.pdf Fact Sheet for Healthcare Patients: https://www.Treatsie/Documents/Xp ert%20Xpress%20SAR S%20CoV-2/Fact%20S heets/302-3801%20S ARS-COV-2%20PATIEN T%20FACT%20SHEET.p df Lab Interpretation Normal (test code = 15461-1) [facility] (Asymptomatic ONLY)2022-03-06 19:17:07 Test Item Value Reference Interpretation Comments Range SARS-COV2/RT-PCR Negative Negative The SARS-Co V-2 (test code = target nucleic 43211-1) acids are not detected in thi s [...] revoked sooner. Fact Sheet for Healthcare Providers: https://www.Treatsie/Documents/Xp ert%20Xpress%20SAR S%20CoV-2/Fact%20S heets/302-3802%20S ARS-COV-2%20HEALTH CARE%20PROVIDERS%2 0FACT%20SHEET.pdf Fact Sheet for Healthcare Patients: https://www.Treatsie/Documents/Xp ert%20Xpress%20SAR S%20CoV-2/Fact%20S heets/302-3801%20S ARS-COV-2%20PATIEN T%20FACT%20SHEET.p df Lab Interpretation Normal (test code = 16235-8) [facility] (Asymptomatic ONLY)2022-03-06 19:17:07 Test Item Value Reference Interpretation Comments Range SARS-COV2/RT-PCR Negative Negative The SARS-Co V-2 (test code = target nucleic 28010-1) acids are not detected in thi s [...] revoked sooner. Fact Sheet for Healthcare Providers: https://www.Treatsie/Documents/Xp ert%20Xpress%20SAR S%20CoV-2/Fact%20S heets/302-3802%20S ARS-COV-2%20HEALTH CARE%20PROVIDERS%2 0FACT%20SHEET.pdf Fact Sheet for Healthcare Patients: https://www.Treatsie/Documents/Xp ert%20Xpress%20SAR S%20CoV-2/Fact%20S heets/302-3801%20S ARS-COV-2%20PATIEN T%20FACT%20SHEET.p df Lab Interpretation Normal (test code = 61775-3) [facility] (Asymptomatic ONLY)2022-03-06 19:17:07 Test Item Value Reference Interpretation Comments Range SARS-COV2/RT-PCR Negative Negative The SARS-Co V-2 (test code = target nucleic 05559-3) acids are not detected in thi s [...] revoked sooner. Fact Sheet for Healthcare Providers: https://www.Treatsie/Documents/Xp ert%20Xpress%20SAR S%20CoV-2/Fact%20S heets/302-3802%20S ARS-COV-2%20HEALTH CARE%20PROVIDERS%2 0FACT%20SHEET.pdf Fact Sheet for Healthcare Patients: https://www.Treatsie/Documents/Xp ert%20Xpress%20SAR S%20CoV-2/Fact%20S heets/302-3801%20S ARS-COV-2%20PATIEN T%20FACT%20SHEET.p df Lab Interpretation Normal (test code = 38830-0) [facility] (Asymptomatic ONLY)2022-03-06 19:17:07 Test Item Value Reference Interpretation Comments Range SARS-COV2/RT-PCR Negative Negative The SARS-Co V-2 (test code = target nucleic 73378-8) acids are not detected in thi s [...] revoked sooner. Fact Sheet for Healthcare Providers: https://www.Treatsie/Documents/Xp ert%20Xpress%20SAR S%20CoV-2/Fact%20S heets/302-3802%20S ARS-COV-2%20HEALTH CARE%20PROVIDERS%2 0FACT%20SHEET.pdf Fact Sheet for Healthcare Patients: https://www.Treatsie/Documents/Xp ert%20Xpress%20SAR S%20CoV-2/Fact%20S heets/302-3801%20S ARS-COV-2%20PATIEN T%20FACT%20SHEET.p df Lab Interpretation Normal (test code = 98140-4) [facility] (Asymptomatic ONLY)2022-03-06 19:17:07 Test Item Value Reference Interpretation Comments Range SARS-COV2/RT-PCR Negative Negative The SARS-Co V-2 (test code = target nucleic 54535-5) acids are not detected in thi s [...] revoked sooner. Fact Sheet for Healthcare Providers: https://www.Treatsie/Documents/Xp ert%20Xpress%20SAR S%20CoV-2/Fact%20S heets/302-3802%20S ARS-COV-2%20HEALTH CARE%20PROVIDERS%2 0FACT%20SHEET.pdf Fact Sheet for Healthcare Patients: https://www.Treatsie/Documents/Xp ert%20Xpress%20SAR S%20CoV-2/Fact%20S heets/302-3801%20S ARS-COV-2%20PATIEN T%20FACT%20SHEET.p df Lab Interpretation Normal (test code = 55883-4) [facility] (Asymptomatic ONLY)2022-03-06 19:17:07 Test Item Value Reference Interpretation Comments Range SARS-COV2/RT-PCR Negative Negative The SARS-Co V-2 (test code = target nucleic 99935-3) acids are not detected in thi s [...] revoked sooner. Fact Sheet for Healthcare Providers: https://www.Treatsie/Documents/Xp ert%20Xpress%20SAR S%20CoV-2/Fact%20S heets/3023802%20S ARS-COV-2%20HEALTH CARE%20PROVIDERS%2 0FACT%20SHEET.pdf Fact Sheet for Healthcare Patients: https://www.Treatsie/Documents/Xp ert%20Xpress%20SAR S%20CoV-2/Fact%20S heets/302-3801%20S ARS-COV-2%20PATIEN T%20FACT%20SHEET.p df Lab Interpretation Normal (test code = 48474-3) [facility] (Asymptomatic ONLY)2022-03-06 19:17:07 Test Item Value Reference Interpretation Comments Range SARS-COV2/RT-PCR Negative Negative The SARS-Co V-2 (test code = target nucleic 47149-2) acids are not detected in thi s [...] revoked sooner. Fact Sheet for Healthcare Providers: https://www.Treatsie/Documents/Xp ert%20Xpress%20SAR S%20CoV-2/Fact%20S heets/302-3802%20S ARS-COV-2%20HEALTH CARE%20PROVIDERS%2 0FACT%20SHEET.pdf Fact Sheet for Healthcare Patients: https://www.Treatsie/Documents/Xp ert%20Xpress%20SAR S%20CoV-2/Fact%20S heets/302-3801%20S ARS-COV-2%20PATIEN T%20FACT%20SHEET.p df Lab Interpretation Normal (test code = 26858-4) [facility] (Asymptomatic ONLY)2022-03-06 19:17:07 Test Item Value Reference Interpretation Comments Range SARS-COV2/RT-PCR Negative Negative The SARS-Co V-2 (test code = target nucleic 78845-4) acids are not detected in thi s [...] revoked sooner. Fact Sheet for Healthcare Providers: https://www.Treatsie/Documents/Xp ert%20Xpress%20SAR S%20CoV-2/Fact%20S heets/302-3802%20S ARS-COV-2%20HEALTH CARE%20PROVIDERS%2 0FACT%20SHEET.pdf Fact Sheet for Healthcare Patients: https://www.Treatsie/Documents/Xp ert%20Xpress%20SAR S%20CoV-2/Fact%20S heets/302-3801%20S ARS-COV-2%20PATIEN T%20FACT%20SHEET.p df Lab Interpretation Normal (test code = 17178-7) [facility]As[facility]omatic ONLY)2022-03-06 19:17:07 Test Item Value Reference Interpretation Comments Range SARS-COV2/RT-PCR Negative Negative The SARS-Co V-2 (test code = target nucleic 61435-5) acids are not detected in thi s [...] revoked sooner. Fact Sheet for Healthcare Providers: https://www.Treatsie/Documents/Xp ert%20Xpress%20SAR S%20CoV-2/Fact%20S heets/3023802%20S ARS-COV-2%20HEALTH CARE%20PROVIDERS%2 0FACT%20SHEET.pdf Fact Sheet for Healthcare Patients: https://www.[employer]/Documents/Xp ert%20Xpress%20SAR S%20CoV-2/Fact%20S heets/3023801%20S ARS-COV-2%20PATIEN T%20FACT%20SHEET.p df Lab Interpretation Normal (test code = 59121-5) [facility]2022-03-06 19:17:07 Test Item Value Reference Interpretation Comments Range SARS-COV2/RT-PCR Negative Negative The SARS-Co V-2 (test code = target nucleic 64096-3) acids are not detected in thi s [...] revoked sooner. Fact Sheet for Healthcare Providers: https://www.Treat[employer]/Documents/Xp ert%20Xpress%20SAR S%20CoV-2/Fact%20S heets/302-3802%20S ARS-COV-2%20HEALTH CARE%20PROVIDERS%2 0FACT%20SHEET.pdf Fact Sheet for Healthcare Patients: https://www.[employer]/Documents/Xp ert%20Xpress%20SAR S%20CoV-2/Fact%20S heets/302-3801%20S ARS-COV-2%20PATIEN T%20FACT%20SHEET.p df Lab Interpretation Normal (test code = 96251-2) [facility]As[facility]omatic ONLY[facility]2022-03-06 19:17:07 Test Item Value Reference Interpretation Comments Range SARS-COV2/RT-PCR Negative Negative The SARS-Co V-2 (test code = target nucleic 30182-5) acids are not detected in thi s [...] revoked sooner. Fact Sheet for Healthcare Providers: https://www.Treatsie/Documents/Xp ert%20Xpress%20SAR S%20CoV-2/Fact%20S heets/302-3802%20S ARS-COV-2%20HEALTH CARE%20PROVIDERS%2 0FACT%20SHEET.pdf Fact Sheet for Healthcare Patients: https://www.Treatsie/Documents/Xp ert%20Xpress%20SAR S%20CoV-2/Fact%20S heets/302-3801%20S ARS-COV-2%20PATIEN T%20FACT%20SHEET.p df Lab Interpretation Normal (test code = 72439-2) [facility]06 19:17:07 Test Item Value Reference Interpretation Comments Range SARS-COV2/RT-PCR Negative Negative The SARS-Co V-2 (test code = target nucleic 09438-1) acids are not detected in thi s [...] revoked sooner. Fact Sheet for Healthcare Providers: https://www.Treatsie/Documents/Xp ert%20Xpress%20SAR S%20CoV-2/Fact%20S heets/302-3802%20S ARS-COV-2%20HEALTH CARE%20PROVIDERS%2 0FACT%20SHEET.pdf Fact Sheet for Healthcare Patients: https://www.Treatsie/Documents/Xp ert%20Xpress%20SAR S%20CoV-2/Fact%20S heets/302-3801%20S ARS-COV-2%20PATIEN T%20FACT%20SHEET.p df Lab Interpretation Normal (test code = 20930-0) [facility]2022-03-06 19:17:07 Test Item Value Reference Interpretation Comments Range SARS-COV2/RT-PCR Negative Negative The SARS-Co V-2 (test code = target nucleic 62229-9) acids are not detected in thi s [...] revoked sooner. Fact Sheet for Healthcare Providers: https://www.Treatsie/Documents/Xp ert%20Xpress%20SAR S%20CoV-2/Fact%20S heets/302-3802%20S ARS-COV-2%20HEALTH CARE%20PROVIDERS%2 0FACT%20SHEET.pdf Fact Sheet for Healthcare Patients: https://www.Treatsie/Documents/Xp ert%20Xpress%20SAR S%20CoV-2/Fact%20S heets/302-3801%20S ARS-COV-2%20PATIEN T%20FACT%20SHEET.p df Lab Interpretation Normal (test code = 31629-1) [facility] 19:17:07 Test Item Value Reference Interpretation Comments Range SARS-COV2/RT-PCR Negative Negative The SARS-Co V-2 (test code = target nucleic 99483-2) acids are not detected in thi s [...] revoked sooner. Fact Sheet for Healthcare Providers: https://www.Treatsie/Documents/Xp ert%20Xpress%20SAR S%20CoV-2/Fact%20S heets/302-3802%20S ARS-COV-2%20HEALTH CARE%20PROVIDERS%2 0FACT%20SHEET.pdf Fact Sheet for Healthcare Patients: https://www.Treatsie/Documents/Xp ert%20Xpress%20SAR S%20CoV-2/Fact%20S heets/302-3801%20S ARS-COV-2%20PATIEN T%20FACT%20SHEET.p df Lab Interpretation Normal (test code = 08044-8) [facility]2022-03-06 19:17:07 Test Item Value Reference Interpretation Comments Range SARS-COV2/RT-PCR Negative Negative The SARS-Co V-2 (test code = target nucleic 32563-8) acids are not detected in thi s [...] revoked sooner. Fact Sheet for Healthcare Providers: https://www.Treatsie/Documents/Xp ert%20Xpress%20SAR S%20CoV-2/Fact%20S heets/302-3802%20S ARS-COV-2%20HEALTH CARE%20PROVIDERS%2 0FACT%20SHEET.pdf Fact Sheet for Healthcare Patients: https://wwwzeenworld/Documents/Xp ert%20Xpress%20SAR S%20CoV-2/Fact%20S heets/302-3801%20S ARS-COV-2%20PATIEN T%20FACT%20SHEET.p df Lab Interpretation Normal (test code = 01462-0) [facility]2022-03-06 19:17:07 Test Item Value Reference Interpretation Comments Range SARS-COV2/RT-PCR Negative Negative The SARS-Co V-2 (test code = target nucleic 27230-8) acids are not detected in thi s [...] revoked sooner. Fact Sheet for Healthcare Providers: https://www.Treatsie/Documents/Xp ert%20Xpress%20SAR S%20CoV-2/Fact%20S heets/302-3802%20S ARS-COV-2%20HEALTH CARE%20PROVIDERS%2 0FACT%20SHEET.pdf Fact Sheet for Healthcare Patients: https://www.Treatsie/Documents/Xp ert%20Xpress%20SAR S%20CoV-2/Fact%20S heets/302-3801%20S ARS-COV-2%20PATIEN T%20FACT%20SHEET.p df Lab Interpretation Normal (test code = 03745-8) [facility]2022-03-06 19:17:07 Test Item Value Reference Interpretation Comments Range SARS-COV2/RT-PCR Negative Negative The SARS-Co V-2 (test code = target nucleic 66428-9) acids are not detected in thi s [...] revoked sooner. Fact Sheet for Healthcare Providers: https://www.Treatsie/Documents/Xp ert%20Xpress%20SAR S%20CoV-2/Fact%20S heets/302-3802%20S ARS-COV-2%20HEALTH CARE%20PROVIDERS%2 0FACT%20SHEET.pdf Fact Sheet for Healthcare Patients: https://wwwzeenworld/Documents/Xp ert%20Xpress%20SAR S%20CoV-2/Fact%20S heets/302-3801%20S ARS-COV-2%20PATIEN T%20FACT%20SHEET.p df Lab Interpretation Normal (test code = 06078-8) [facility]2022-03-06 19:17:07 Test Item Value Reference Interpretation Comments Range SARS-COV2/RT-PCR Negative Negative The SARS-Co V-2 (test code = target nucleic 86514-9) acids are not detected in thi s [...] revoked sooner. Fact Sheet for Healthcare Providers: https://www.Treatsie/Documents/Xp ert%20Xpress%20SAR S%20CoV-2/Fact%20S heets/302-3802%20S ARS-COV-2%20HEALTH CARE%20PROVIDERS%2 0FACT%20SHEET.pdf Fact Sheet for Healthcare Patients: https://www.Treatsie/Documents/Xp ert%20Xpress%20SAR S%20CoV-2/Fact%20S heets/302-3801%20S ARS-COV-2%20PATIEN T%20FACT%20SHEET.p df Lab Interpretation Normal (test code = 79664-0) [facility]2022-03-06 19:17:07 Test Item Value Reference Interpretation Comments Range SARS-COV2/RT-PCR Negative Negative The SARS-Co V-2 (test code = target nucleic 89547-2) acids are not detected in thi s [...] revoked sooner. Fact Sheet for Healthcare Providers: https://www.Treatsie/Documents/Xp ert%20Xpress%20SAR S%20CoV-2/Fact%20S heets/302-3802%20S ARS-COV-2%20HEALTH CARE%20PROVIDERS%2 0FACT%20SHEET.pdf Fact Sheet for Healthcare Patients: https://www.Treatsie/Documents/Xp ert%20Xpress%20SAR S%20CoV-2/Fact%20S heets/302-3801%20S ARS-COV-2%20PATIEN T%20FACT%20SHEET.p df Lab Interpretation Normal (test code = 59679-2) [facility]2022-03-06 19:17:07 Test Item Value Reference Interpretation Comments Range SARS-COV2/RT-PCR Negative Negative The SARS-Co V-2 (test code = target nucleic 64126-3) acids are not detected in thi s [...] revoked sooner. Fact Sheet for Healthcare Providers: https://www.Treatsie/Documents/Xp ert%20Xpress%20SAR S%20CoV-2/Fact%20S heets/302-3802%20S ARS-COV-2%20HEALTH CARE%20PROVIDERS%2 0FACT%20SHEET.pdf Fact Sheet for Healthcare Patients: https://www.Treatsie/Documents/Xp ert%20Xpress%20SAR S%20CoV-2/Fact%20S heets/302-3801%20S ARS-COV-2%20PATIEN T%20FACT%20SHEET.p df Lab Interpretation Normal (test code = 88296-0) [facility]2022-03-06 19:17:07 Test Item Value Reference Interpretation Comments Range SARS-COV2/RT-PCR Negative Negative The SARS-Co V-2 (test code = target nucleic 86028-5) acids are not detected in thi s [...] revoked sooner. Fact Sheet for Healthcare Providers: https://www.Treatsie/Documents/Xp ert%20Xpress%20SAR S%20CoV-2/Fact%20S heets/302-3802%20S ARS-COV-2%20HEALTH CARE%20PROVIDERS%2 0FACT%20SHEET.pdf Fact Sheet for Healthcare Patients: https://www.Treatsie/Documents/Xp ert%20Xpress%20SAR S%20CoV-2/Fact%20S heets/302-3801%20S ARS-COV-2%20PATIEN T%20FACT%20SHEET.p df Lab Interpretation Normal (test code = 59612-5) [facility] [place]2022-03-06 19:17:07 Test Item Value Reference Interpretation Comments Range SARS-COV2/RT-PCR Negative Negative The SARS-Co V-2 (test code = target nucleic 53231-7) acids are not detected in thi s [...] SARS-CoV-2 in a nasopharyngeal swab specimen collec dani from individual s suspected of COVID-19 by [...] revoked sooner. Fact Sheet for Healthcare Providers: https://www.Treatsie/Documents/Xp ert%20Xpress%20SAR S%20CoV-2/Fact%20S heets/302-3802%20S ARS-COV-2%20HEALTH CARE%20PROVIDERS%2 0FACT%20SHEET.pdf Fact Sheet for Healthcare Patients: https://www.Treatsie/Documents/Xp ert%20Xpress%20SAR S%20CoV-2/Fact%20S heets/302-3801%20S ARS-COV-2%20PATIEN T%20FACT%20SHEET.p df Lab Interpretation Normal (test code = 48529-9) [facility]2022-03-06 19:17:07 Test Item Value Reference Interpretation Comments Range SARS-COV2/RT-PCR Negative Negative The SARS-Co V-2 (test code = target nucleic 52577-2) acids are not detected in thi s [...] revoked sooner. Fact Sheet for Healthcare Providers: https://www.Treatsie/Documents/Xp ert%20Xpress%20SAR S%20CoV-2/Fact%20S heets/302-3802%20S ARS-COV-2%20HEALTH CARE%20PROVIDERS%2 0FACT%20SHEET.pdf Fact Sheet for Healthcare Patients: https://www.Treatsie/Documents/Xp ert%20Xpress%20SAR S%20CoV-2/Fact%20S heets/302-3801%20S ARS-COV-2%20PATIEN T%20FACT%20SHEET.p df Lab Interpretation Normal (test code = 15272-4) [facility]2022-03-06 19:17:07 Test Item Value Reference Range Interpretation Comments SARS-COV2/RT-PCR Negative Negative The SARS-Co V-2 target (test code = nucleic acids a re not 0543178) detected in thi s specimen. Negative result [...] revoked sooner. Fact Sheet for Healthcare Providers: https://www.SunPods m/Documents/Xpert%20Xpress%20SARS%20CoV-2/Fact%20Sheets/3023802%53IHAD-ZDC-0%20 HEALTHCARE%20PROVIDERS%20FACT%20SHEET.pdf Fact Sheet for Healthcare Patients: https://www.23andMe/Documents/Xpert%20Xp ress%20SARS%20CoV-2/Fact%20Sheets/302-3801%68DPFL-MZU-8%20PATIENT%20FACT%20SHEET .pdfCREATINE KINASE (CK)2022-03-06 16:19:14 Test Item Value Reference Range Interpretation Comments CREATINE KINASE TOTAL (BEAKER) (test 141 U/L 29-200 code = 380) Cardiovascular Sonographer ID - BST4, [id number] 15:13:16 Test Item Value Reference Range Interpretation Comments FREE T4 (BEAKER) (test code = 655) 0.95 ng/dL 0.70-1.48 Cardiovascular Sonographer ID - BSTSH/FREE T4 IF [id number] 15:13:16 Test Item Value Reference Range Interpretation Comments THYROID STIMULATING HORMONE 2.060 uIU/mL 0.350-4.940 (BEAKER) (test code = 772) Cardiovascular Sonographer ID - BSB-TYPE NATRIURETIC FACTOR (BNP)2022-03-06 14:26:30 Test Item Value Reference Range Interpretation Comments B-TYPE NATRIURETIC PEPTIDE (BEAKER) < pg/mL 0-100 (test code = 700) Cardiovascular Sonographer ID - JSHIGH SENSITIVITY TROPONIN [id number] 14:14:54 Test Item Value Reference Range Interpretation Comments HIGH SENSITIVITY < pg/ml See_Comment [Automated message] TROPONIN I (test code = The system which 1541551) generated this result transmitted ref erence range: <=35. Th e reference range was not used to interpr et this result as normal/abnormal . Cardiovascular Sonographer ID - JSThe ORAL AND MAXILLOFACIAL SURGERY STAT High Sensitivity Troponin-I results should be used in conjunctionwith other diagnostic information such as ECG, clinical observations and information, and patient symptoms to aid in the diagnosis of SC.RAD, CHEST, 1 VIEW, NON [id number] 14:10:00Reason for exam:- >NEUROLOGIC PROBLEMShould this be performed at the bedside?->Yes [facility] 1970 Sex: MFINAL REPORT [...] Brown Verified Date/Time: 03/06/2022 14:10:44 REHENSIVE METABOLIC [id number] 14:08:22 Test Item Value Reference Range Interpretation [...] S NOT APPLICABLE FOR DIALYSIS PATIEN TS. Cardiovascular Sonographer ID - [id number] 14:07:49 Test Item Value Reference Range Interpretation Comments MAGNESIUM (BEAKER) (test code = 2.0 mg/dL 1.6-2.6 627) Cardiovascular Sonographer ID - [id number] 14:07:49 Test Item Value Reference Range Interpretation Comments PHOSPHORUS (BEAKER) (test code = 5.6 mg/dL 2.3-4.7 H 604) Cardiovascular Sonographer ID - JSLACTIC ACID, [id number] 13:51:04 Test Item Value Reference Range Interpretation Comments LACTATE BLOOD VENOUS 1.32 mmol/L 0.50-2.20 Specime n slightly (2) (BEAKER) (test hemolyzed code = 2872) Cardiovascular Sonographer ID - JSCBC W/PLT COUNT & AUTO [id number] 13:47:24 Test Item Value Reference Range Interpretation [...] (BEAKER) (test code = 2801) Coronavirus, CoVID-19, [id number] 01:07:20 Test Item Value Reference Range Interpretation Comments COVID-19 (SARS-COV-2) Not Detected Not Detected INTERP RETATION: No (test code = 48728-8) detect able levels of SARS-CoV-2 Coronavirus (COVID-19) [...] SARS-CoV-2 mole cular diagnostic assa y utilizes Private Client Advisor Mediated Amplification ( TMA) technology to r apidly detect the SARS -CoV-2 (COVID-19) viru s from respiratory adriana ples. In accordance w ith the FDA's kamran nce document "Polic y for Diagnostic Test s for Coronavirus Disease-2019 du [facility]", thi s test was developed, and its performance characteristics were verified by the [facility] molecular diagn ostics laboratory and is authorized for clinical diagno stic use. This labor atory is certified un estevan the Clinical Laboratory Improvement Amendments (CLI A) as qualified to pe rform high complexity clinical labora tory testing. Lab Interpretation Normal (test code = 15368-6) [facility] [id number] 01:07:20 Test Item Value Reference Range Interpretation Comments COVID-19 (SARS-COV-2) Not Detected Not Detected INTERP RETATION: No (test code = 17967-3) detect able levels of SARS-CoV-2 Coronavirus (COVID-19) [...] SARS-CoV-2 mole cular diagnostic assa y utilizes Private Client Advisor Mediated Amplification ( TMA) technology to r apidly detect the SARS -CoV-2 (COVID-19) viru s from respiratory adriana ples. In accordance w ith the FDA's kamran nce document "Polic y for Diagnostic Test s for Coronavirus Disease-2019 du ring the [facility]", thi s test was developed, and its performance characteristics were verified by the [facility] molecular diagn ostics laboratory and is authorized for clinical diagno stic use. This labor atory is certified un est[place] the Clinical Laboratory Improvement Amendments (CLI A) as qualified to pe rform high complexity clinical labora tory testing. Lab Interpretation Normal (test code = 03921-2) Maged Ruelasronavirus, CoVID-19, [id number] 01:07:20 Test Item Value Reference Range Interpretation Comments COVID-19 (SARS-COV-2) Not Detected Not Detected INTERP RETATION: No (test code = 54208-2) detect able levels of SARS-CoV-2 Coronavirus (COVID-19) [...] SARS-CoV-2 mole cular diagnostic assa y utilizes Private Client Advisor Mediated Amplification ( TMA) technology to r apidly detect the SARS -CoV-2 (COVID-19) viru s from respiratory adriana ples. In accordance w ith the FDA's kamran nce document "Polic y for Diagnostic Test s for Coronavirus Disease-2019 du [facility] the [facility]", thi s test was developed, and its performance characteristics were verified by the [facility] molecular diagn ostics laboratory and is authorized for clinical diagno stic use. This labor atory is certified un [place] the Clinical Laboratory Improvement Amendments (CLI A) as qualified to pe rform high complexity clinical labora tory testing. Lab Interpretation Normal (test code = 63816-4) Lynne Surajronavirus, CoVID-19, [id number] 01:07:20 Test Item Value Reference Range Interpretation Comments COVID-19 (SARS-COV-2) Not Detected Not Detected INTERP RETATION: No (test code = 31840-6) detect able levels of SARS-CoV-2 Coronavirus (COVID-19) [...] SARS-CoV-2 mole cular diagnostic assa y utilizes Private Client Advisor Mediated Amplification ( TMA) technology to r apidly detect the SARS -CoV-2 (COVID-19) viru s from respiratory adriana ples. In accordance w ith the FDA's kamran nce document "Polic y for Diagnostic Test s for Coronavirus Disease-2019 du [facility] the [facility] Emergency", thi s test was developed, and its performance characteristics were verified by the [facility] molecular diagn ostics laboratory and is authorized for clinical diagno stic use. This labor atory is certified un est[place] the Clinical Laboratory Improvement Amendments (CLI A) as qualified to pe rform high complexity clinical labora tory testing. Lab Interpretation Normal (test code = 91255-9) [facility] [id number] 01:07:20 Test Item Value Reference Range Interpretation Comments COVID-19 (SARS-COV-2) Not Detected Not Detected INTERP RETATION: No (test code = 34295-1) detect able levels of SARS-CoV-2 Coronavirus (COVID-19) [...] SARS-CoV-2 mole cular diagnostic assa y utilizes Private Client Advisor Mediated Amplification ( TMA) technology to r apidly detect the SARS -CoV-2 (COVID-19) viru s from respiratory adriana ples. In accordance w ith the FDA's kamran nce document "Polic y for Diagnostic Test s for Coronavirus Disease-2019 du [facility] the [facility]", thi s test was developed, and its performance characteristics were verified by the [facility] molecular diagn ostics laboratory and is authorized for clinical diagno stic use. This labor atory is certified un [place] the Clinical Laboratory Improvement Amendments (CLI A) as qualified to pe rform high complexity clinical labora tory testing. Lab Interpretation Normal (test code = 92521-5) [facility], [id number] 01:07:20 Test Item Value Reference Range Interpretation Comments COVID-19 (SARS-COV-2) Not Detected Not Detected INTERP RETATION: No (test code = 59397-4) detect able levels of SARS-CoV-2 Coronavirus (COVID-19) [...] SARS-CoV-2 mole cular diagnostic assa y utilizes Private Client Advisor Mediated Amplification ( TMA) technology to r apidly detect the SARS -CoV-2 (COVID-19) viru s from respiratory adriana ples. In accordance w ith the FDA's kamran nce document "Polic y for Diagnostic Test s for Coronavirus Disease-2019 du ring the [facility]", thi s test was developed, and its performance characteristics were verified by the [facility] molecular diagn ostics laboratory and is authorized for clinical diagno stic use. This labor atory is certified un [place] the Clinical Laboratory Improvement Amendments (CLI A) as qualified to pe rform high complexity clinical labora tory testing. Lab Interpretation Normal (test code = 78028-9) Ava KandiCoronavirus, CoVID-19, [id number] 01:07:20 Test Item Value Reference Range Interpretation Comments COVID-19 (SARS-COV-2) Not Detected Not Detected INTERP RETATION: No (test code = 31908-6) detect able levels of SARS-CoV-2 Coronavirus (COVID-19) [...] SARS-CoV-2 mole cular diagnostic assa y utilizes Private Client Advisor Mediated Amplification ( TMA) technology to r apidly detect the SARS -CoV-2 (COVID-19) viru s from respiratory adriana ples. In accordance w ith the FDA's kamran nce document "Polic y for Diagnostic Test s for Coronavirus Disease-2019 du [facility] the [facility] Emergency", thi s test was developed, and its performance characteristics were verified by the [facility] molecular diagn ostics laboratory and is authorized for clinical diagno stic use. This labor atory is certified un est[place] the Clinical Laboratory Improvement Amendments (CLI A) as qualified to pe rform high complexity clinical labora tory testing. Lab Interpretation Normal (test code = 43148-8) [facility], [id number] 01:07:20 Test Item Value Reference Range Interpretation Comments COVID-19 (SARS-COV-2) Not Detected Not Detected INTERP RETATION: No (test code = 91679-7) detect able levels of SARS-CoV-2 Coronavirus (COVID-19) [...] SARS-CoV-2 mole cular diagnostic assa y utilizes Private Client Advisor Mediated Amplification ( TMA) technology to r apidly detect the SARS -CoV-2 (COVID-19) viru s from respiratory adriana ples. In accordance w ith the FDA's kamran nce document "Polic y for Diagnostic Test s for Coronavirus Disease-2019 du [facility] the [facility]", thi s test was developed, and its performance characteristics were verified by the [facility] molecular diagn ostics laboratory and is authorized for clinical diagno stic use. This labor atory is certified un [place] the Clinical Laboratory Improvement Amendments (CLI A) as qualified to pe rform high complexity clinical labora tory testing. Lab Interpretation Normal (test code = 11384-6) [facility], [id number] 01:07:20 Test Item Value Reference Range Interpretation Comments COVID-19 (SARS-COV-2) Not Detected Not Detected INTERP RETATION: No (test code = 59600-0) detect able levels of SARS-CoV-2 Coronavirus (COVID-19) [...] SARS-CoV-2 mole cular diagnostic assa y utilizes Private Client Advisor Mediated Amplification ( TMA) technology to r apidly detect the SARS -CoV-2 (COVID-19) viru s from respiratory adriana ples. In accordance w ith the FDA's kamran nce document "Polic y for Diagnostic Test s for Coronavirus Disease-2019 du ring the [facility]", thi s test was developed, and its performance characteristics were verified by the [facility] molecular diagn ostics laboratory and is authorized for clinical diagno stic use. This labor atory is certified un est[place] the Clinical Laboratory Improvement Amendments (CLI A) as qualified to pe rform high complexity clinical labora tory testing. Lab Interpretation Normal (test code = 23599-3) [facility], [id number] 01:07:20 Test Item Value Reference Range Interpretation Comments COVID-19 (SARS-COV-2) Not Detected Not Detected INTERP RETATION: No (test code = 88306-1) detect able levels of SARS-CoV-2 Coronavirus (COVID-19) [...] SARS-CoV-2 mole cular diagnostic assa y utilizes Private Client Advisor Mediated Amplification ( TMA) technology to r apidly detect the SARS -CoV-2 (COVID-19) viru s from respiratory adriana ples. In accordance w ith the FDA's kamran nce document "Polic y for Diagnostic Test s for Coronavirus Disease-2019 du ring the [facility]", thi s test was developed, and its performance characteristics were verified by the [facility] molecular diagn ostics laboratory and is authorized for clinical diagno stic use. This labor atory is certified un est[place] the Clinical Laboratory Improvement Amendments (CLI A) as qualified to pe rform high complexity clinical labora tory testing. Lab Interpretation Normal (test code = 79533-1) [facility], [id number] 01:07:20 Test Item Value Reference Range Interpretation Comments COVID-19 (SARS-COV-2) Not Detected Not Detected INTERP RETATION: No (test code = 85849-5) detect able levels of SARS-CoV-2 Coronavirus (COVID-19) [...] SARS-CoV-2 mole cular diagnostic assa y utilizes Private Client Advisor Mediated Amplification ( TMA) technology to r apidly detect the SARS -CoV-2 (COVID-19) viru s from respiratory adriana ples. In accordance w ith the FDA's kamran nce document "Polic y for Diagnostic Test s for Coronavirus Disease-2019 du ring the [facility] th Emergency", thi s test was developed, and its performance characteristics were verified by the [facility] molecular diagn ostics laboratory and is authorized for clinical diagno stic use. This labor atory is certified un est[place] the Clinical Laboratory Improvement Amendments (CLI A) as qualified to pe rform high complexity clinical labora tory testing. Lab Interpretation Normal (test code = 43898-2) [facility], [facility] [id number] 01:07:20 Test Item Value Reference Range Interpretation Comments COVID-19 (SARS-COV-2) Not Detected Not Detected INTERP RETATION: No (test code = 17825-6) detect able levels of SARS-CoV-2 Coronavirus (COVID-19) [...] SARS-CoV-2 mole cular diagnostic assa y utilizes Private Client Advisor Mediated Amplification ( TMA) technology to r apidly detect the SARS -CoV-2 (COVID-19) viru s from respiratory adriana ples. In accordance w ith the FDA's kamran nce document "Polic y for Diagnostic Test s for Coronavirus Disease-2019 du [facility] the [facility]", thi s test was developed, and its performance characteristics were verified by the [facility] molecular diagn ostics laboratory and is authorized for clinical diagno stic use. This labor atory is certified un est[place] the Clinical Laboratory Improvement Amendments (CLI A) as qualified to pe rform high complexity clinical labora tory testing. Lab Interpretation Normal (test code = 37849-9) [facility], [id number] 01:07:20 Test Item Value Reference Range Interpretation Comments COVID-19 (SARS-COV-2) Not Detected Not Detected INTERP RETATION: No (test code = 99645-0) detect able levels of SARS-CoV-2 Coronavirus (COVID-19) [...] SARS-CoV-2 mole cular diagnostic assa y utilizes Private Client Advisor Mediated Amplification ( TMA) technology to r apidly detect the SARS -CoV-2 (COVID-19) viru s from respiratory adriana ples. In accordance w ith the FDA's kamran nce document "Polic y for Diagnostic Test s for Coronavirus Disease-2019 du [facility] the [facility] Emergency", thi s test was developed, and its performance characteristics were verified by the [facility] molecular diagn ostics laboratory and is authorized for clinical diagno stic use. This labor atory is certified un [place] the Clinical Laboratory Improvement Amendments (CLI A) as qualified to pe rform high complexity clinical labora tory testing. Lab Interpretation Normal (test code = 00964-0) [facility], [id number] 01:07:20 Test Item Value Reference Range Interpretation Comments COVID-19 (SARS-COV-2) Not Detected Not Detected INTERP RETATION: No (test code = 79971-5) detect able levels of SARS-CoV-2 Coronavirus (COVID-19) [...] SARS-CoV-2 mole cular diagnostic assa y utilizes Private Client Advisor Mediated Amplification ( TMA) technology to r apidly detect the SARS -CoV-2 (COVID-19) viru s from respiratory adriana ples. In accordance w ith the FDA's kamran nce document "Polic y for Diagnostic Test s for Coronavirus Disease-2019 du [facility] the [facility]", thi s test was developed, and its performance characteristics were verified by the [facility] molecular diagn ostics laboratory and is authorized for clinical diagno stic use. This labor atory is certified un [place] the Clinical Laboratory Improvement Amendments (CLI A) as qualified to pe rform high complexity clinical labora tory testing. Lab Interpretation Normal (test code = 31540-9) [facility], [id number] 01:07:20 Test Item Value Reference Range Interpretation Comments COVID-19 (SARS-COV-2) Not Detected Not Detected INTERP RETATION: No (test code = 59987-6) detect able levels of SARS-CoV-2 Coronavirus (COVID-19) [...] SARS-CoV-2 mole cular diagnostic assa y utilizes Private Client Advisor Mediated Amplification ( TMA) technology to r apidly detect the SARS -CoV-2 (COVID-19) viru s from respiratory adriana ples. In accordance w ith the FDA's kamran nce document "Polic y for Diagnostic Test s for Coronavirus Disease-2019 du [facility] the [facility]", thi s test was developed, and its performance characteristics were verified by the [facility] molecular diagn ostics laboratory and is authorized for clinical diagno stic use. This labor atory is certified un [place] the Clinical Laboratory Improvement Amendments (CLI A) as qualified to pe rform high complexity clinical labora tory testing. Lab Interpretation Normal (test code = 35586-5) [facility], [facility], [id number] 01:07:20 Test Item Value Reference Range Interpretation Comments COVID-19 (SARS-COV-2) Not Detected Not Detected INTERP RETATION: No (test code = 05282-2) detect able levels of SARS-CoV-2 Coronavirus (COVID-19) [...] SARS-CoV-2 mole cular diagnostic assa y utilizes Private Client Advisor Mediated Amplification ( TMA) technology to r apidly detect the SARS -CoV-2 (COVID-19) viru s from respiratory adriana ples. In accordance w ith the FDA's kamran nce document "Polic y for Diagnostic Test s for Coronavirus Disease-2019 du [facility] the [facility] Emergency", thi s test was developed, and its performance characteristics were verified by the [facility] molecular diagn ostics laboratory and is authorized for clinical diagno stic use. This labor atory is certified un [place] the Clinical Laboratory Improvement Amendments (CLI A) as qualified to pe rform high complexity clinical labora tory testing. Lab Interpretation Normal (test code = 33716-0) Maged Ruelasronavirus, CoVID-19, [id number] 01:07:20 Test Item Value Reference Range Interpretation Comments COVID-19 (SARS-COV-2) Not Detected Not Detected INTERP RETATION: No (test code = 13360-8) detect able levels of SARS-CoV-2 Coronavirus (COVID-19) [...] SARS-CoV-2 mole cular diagnostic assa y utilizes Private Client Advisor Mediated Amplification ( TMA) technology to r apidly detect the SARS -CoV-2 (COVID-19) viru s from respiratory adriana ples. In accordance w ith the FDA's kamran nce document "Polic y for Diagnostic Test s for Coronavirus Disease-2019 du [facility] the [facility] Emergency", thi s test was developed, and its performance characteristics were verified by the [facility] molecular diagn ostics laboratory and is authorized for clinical diagno stic use. This labor atory is certified un [place] the Clinical Laboratory Improvement Amendments (CLI A) as qualified to pe rform high complexity clinical labora tory testing. Lab Interpretation Normal (test code = 81548-2) [facility], [id number] 01:07:20 Test Item Value Reference Range Interpretation Comments COVID-19 (SARS-COV-2) Not Detected Not Detected INTERP RETATION: No (test code = 18690-6) detect able levels of SARS-CoV-2 Coronavirus (COVID-19) [...] SARS-CoV-2 mole cular diagnostic assa y utilizes Private Client Advisor Mediated Amplification ( TMA) technology to r apidly detect the SARS -CoV-2 (COVID-19) viru s from respiratory adriana ples. In accordance w ith the FDA's kamran nce document "Polic y for Diagnostic Test s for Coronavirus Disease-2019 du [facility] the [facility]", thi s test was developed, and its performance characteristics were verified by the [facility] molecular diagn ostics laboratory and is authorized for clinical diagno stic use. This labor atory is certified un [place] the Clinical Laboratory Improvement Amendments (CLI A) as qualified to rform high complexity clinical labora tory testing. Lab Interpretation Normal (test code = 12528-6) [facility], [facility], [id number] 01:07:20 Test Item Value Reference Range Interpretation Comments COVID-19 (SARS-COV-2) Not Detected Not Detected INTERP RETATION: No (test code = 83872-7) detect able levels of SARS-CoV-2 Coronavirus (COVID-19) [...] SARS-CoV-2 mole cular diagnostic assa y utilizes Private Client Advisor Mediated Amplification ( TMA) technology to r apidly detect the SARS -CoV-2 (COVID-19) viru s from respiratory adriana ples. In accordance w ith the FDA's kamran nce document "Polic y for Diagnostic Test s for Coronavirus Disease-2019 du [facility] the [facility]", thi s test was developed, and its performance characteristics were verified by the [facility] molecular diagn ostics laboratory and is authorized for clinical diagno stic use. This labor atory is certified un [place] the Clinical Laboratory Improvement Amendments (CLI A) as qualified to pe rform high complexity clinical labora tory testing. Lab Interpretation Normal (test code = 78267-8) Maged Aaronavirus, CoVID-19, [id number] 01:07:20 Test Item Value Reference Range Interpretation Comments COVID-19 (SARS-COV-2) Not Detected Not Detected INTERP RETATION: No (test code = 28499-9) detect able levels of SARS-CoV-2 Coronavirus (COVID-19) [...] SARS-CoV-2 mole cular diagnostic assa y utilizes Private Client Advisor Mediated Amplification ( TMA) technology to r apidly detect the SARS -CoV-2 (COVID-19) viru s from respiratory adriana ples. In accordance w ith the FDA's kamran nce document "Polic y for Diagnostic Test s for Coronavirus Disease-2019 [facility]", thi s test was developed, and its performance characteristics were verified by the [facility] molecular diagn ostics laboratory and is authorized for clinical diagno stic use. This labor atory is certified un [place] the Clinical Laboratory Improvement Amendments (CLI A) as qualified to pe rform high complexity clinical labora tory testing. Lab Interpretation Normal (test code = 14896-1) Maged Aaronavirus, CoVID-19, [id number] 01:07:20 Test Item Value Reference Range Interpretation Comments COVID-19 (SARS-COV-2) Not Detected Not Detected INTERP RETATION: No (test code = 54874-1) detect able levels of SARS-CoV-2 Coronavirus (COVID-19) [...] SARS-CoV-2 mole cular diagnostic assa y utilizes Private Client Advisor Mediated Amplification ( TMA) technology to r apidly detect the SARS -CoV-2 (COVID-19) viru s from respiratory adriana ples. In accordance w ith the FDA's kamran nce document "Polic y for Diagnostic Test s for Coronavirus Disease-2019 [facility] [place] the [facility]", thi s test was developed, and its performance characteristics were verified by the [facility] molecular diagn ostics laboratory and is authorized for clinical diagno stic use. This labor atory is certified un [place] the Clinical Laboratory Improvement Amendments (CLI A) as qualified to pe rform high complexity clinical labora tory testing. Lab Interpretation Normal (test code = 06596-9) [facility], [id number] 01:07:20 Test Item Value Reference Range Interpretation Comments COVID-19 (SARS-COV-2) Not Detected Not Detected INTERP RETATION: No (test code = 41613-7) detect able levels of SARS-CoV-2 Coronavirus (COVID-19) [...] SARS-CoV-2 mole cular diagnostic assa y utilizes Private Client Advisor Mediated Amplification ( TMA) technology to r apidly detect the SARS -CoV-2 (COVID-19) viru s from respiratory adriana ples. In accordance w ith the FDA's kamran nce document "Polic y for Diagnostic Test s for Coronavirus Disease-2019 [facility] [place] the [facility] th Emergency", thi s test was developed, and its performance characteristics were verified by the [facility] molecular diagn ostics laboratory and is authorized for clinical diagno stic use. This labor atory is certified un [place] the Clinical Laboratory Improvement Amendments (CLI A) as qualified to pe rform high complexity clinical labora tory testing. Lab Interpretation Normal (test code = 60987-3) [facility], [id number] 01:07:20 Test Item Value Reference Range Interpretation Comments COVID-19 (SARS-COV-2) Not Detected Not Detected INTERP RETATION: No (test code = 62507-2) detect able levels of SARS-CoV-2 Coronavirus (COVID-19) [...] SARS-CoV-2 mole cular diagnostic assa y utilizes Private Client Advisor Mediated Amplification ( TMA) technology to r apidly detect the SARS -CoV-2 (COVID-19) viru s from respiratory adriana ples. In accordance w ith the FDA's kamran nce document "Polic y for Diagnostic Test s for Coronavirus Disease-2019 du [place] the [facility] th Emergency", thi s test was developed, and its performance characteristics were verified by the [facility] molecular diagn ostics laboratory and is authorized for clinical diagno stic use. This labor atory is certified un [place] the Clinical Laboratory Improvement Amendments (CLI A) as qualified to pe rform high complexity clinical labora tory testing. Lab Interpretation Normal (test code = 16711-4) Maged Ruelasronavirus, CoVID-19, [id number] 01:07:20 Test Item Value Reference Range Interpretation Comments COVID-19 (SARS-COV-2) Not Detected Not Detected INTERP RETATION: No (test code = 98107-8) detect able levels of SARS-CoV-2 Coronavirus (COVID-19) [...] SARS-CoV-2 mole cular diagnostic assa y utilizes Private Client Advisor Mediated Amplification ( TMA) technology to r apidly detect the SARS -CoV-2 (COVID-19) viru s from respiratory adriana ples. In accordance w ith the FDA's kamran nce document "Polic y for Diagnostic Test s for Coronavirus Disease-2019 du [facility] the [facility]", thi s test was developed, and its performance characteristics were verified by the [facility] molecular diagn ostics laboratory and is authorized for clinical diagno stic use. This labor atory is certified un [place] the Clinical Laboratory Improvement Amendments (CLI A) as qualified to pe rform high complexity clinical labora tory testing. Lab Interpretation Normal (test code = 46226-7) Maged Ruelasronavirus, CoVID-19, [id number] 01:07:20 Test Item Value Reference Range Interpretation Comments COVID-19 (SARS-COV-2) Not Detected Not Detected INTERP RETATION: No (test code = 62813-1) detect able levels of SARS-CoV-2 Coronavirus (COVID-19) [...] SARS-CoV-2 mole cular diagnostic assa y utilizes Private Client Advisor Mediated Amplification ( TMA) technology to r apidly detect the SARS -CoV-2 (COVID-19) viru s from respiratory adriana ples. In accordance w ith the FDA's kamran nce document "Polic y for Diagnostic Test s for Coronavirus Disease-2019 du [facility] the [facility]", thi s test was developed, and its performance characteristics were verified by the [facility] molecular diagn ostics laboratory and is authorized for clinical diagno stic use. This labor atory is certified un [place] the Clinical Laboratory Improvement Amendments (CLI A) as qualified to pe rform high complexity clinical labora tory testing. Lab Interpretation Normal (test code = 24381-9) [facility] HospitalNbtzenJVLC-IjU-5 ORF1ab Resp Ql [id number] 01:07:20 Test Item Value Reference Range Interpretation Comments Hospitalized? (test No code = 43809-2) ICU? (test code = No 77710-1) Symptomatic as No defined by CDC? (test code = 85082-1) Employed in No Healthcare? (test code = 09801-8) Resident in a No congregate care setting (including nursing homes, residential care for people with intellectual and developmental disabilities, psychiatric treatment facilities, group homes, board and care homes, homeless residential, foster care or other): (test code = 39024-2) SARS-CoV-2 ORF1ab NOT DETECTED Not Detected INTERPRETA TION: No Resp Ql OLENA+probe detectable levels of (test code = SARS-CoV-2 05556-2) Coronavirus (COVID-19) were present in this patient's [...] SARS-CoV-2 mole cular diagnostic assa y utilizes Private Client Advisor Mediated Amplification ( TMA) technology to r apidly detect the SARS -CoV-2 (COVID-19) viru s from respiratory adriana ples. In accordance with\\XC2A0\\the FDA's guidance docume nt "Policy for Diagnostic Test s for Coronavirus Disease-2019 du [facility] the [facility]", [facility] s test was developed, and its performance characteristics were verified by the [facility] molecular diagn ostics laboratory and is authorized for clinical diagno stic use. \\XC2A0\\Thi s laboratory is certified under the Clinical Labora tory Improvement Amendments (CLI A) as qualified to pe rform high complexity clinical labora tory testing. [facility] [id number] 08:09:01 Test Item Value Reference Range Interpretation Comments Glucose POC (test code = 83894191) 85 mg/dL 74-106 Lab Interpretation (test code = Normal 17539-5) [facility] [id number] 08:09:01 Test Item Value Reference Range Interpretation Comments Glucose POC (test code = 84109340) 85 mg/dL 74-106 Lab Interpretation (test code = Normal 13199-6) [facility] GLUCOSE POC docked [id number] 08:09:01 Test Item Value Reference Range Interpretation Comments Glucose POC (test code = 40268656) 85 mg/dL 74-106 Lab Interpretation (test code = Normal 11234-6) [facility] GLUCOSE POC docked [id number] 08:09:01 Test Item Value Reference Range Interpretation Comments Glucose POC (test code = 47825393) 85 mg/dL 74-106 Lab Interpretation (test code = Normal 58397-8) [facility] [id number] 08:09:01 Test Item Value Reference Range Interpretation Comments Glucose POC (test code = 78794952) 85 mg/dL 74-106 Lab Interpretation (test code = Normal 57430-6) [facility] [id number] 08:09:01 Test Item Value Reference Range Interpretation Comments Glucose POC (test code = 09915276) 85 mg/dL 74-106 Lab Interpretation (test code = Normal 54751-5) [facility] [id number] 08:09:01 Test Item Value Reference Range Interpretation Comments Glucose POC (test code = 03451650) 85 mg/dL 74-106 Lab Interpretation (test code = Normal 72500-5) [facility] [id number] 08:09:01 Test Item Value Reference Range Interpretation Comments Glucose POC (test code = 57223990) 85 mg/dL 74-106 Lab Interpretation (test code = Normal 86191-8) [facility] [id number] 08:09:01 Test Item Value Reference Range Interpretation Comments Glucose POC (test code = 10534362) 85 mg/dL 74-106 Lab Interpretation (test code = Normal 53975-0) [facility] [id number] 08:09:01 Test Item Value Reference Range Interpretation Comments Glucose POC (test code = 09334629) 85 mg/dL 74-106 Lab Interpretation (test code = Normal 74390-7) [facility] [id number] 08:09:01 Test Item Value Reference Range Interpretation Comments Glucose POC (test code = 88851303) 85 mg/dL 74-106 Lab Interpretation (test code = Normal 11562-0) [facility] [id number] 08:09:01 Test Item Value Reference Range Interpretation Comments Glucose POC (test code = 24970179) 85 mg/dL 74-106 Lab Interpretation (test code = Normal 36305-5) [facility] [id number] 08:09:01 Test Item Value Reference Range Interpretation Comments Glucose POC (test code = 26607818) 85 mg/dL 74-106 Lab Interpretation (test code = Normal 87343-1) [facility] [id number] 08:09:01 Test Item Value Reference Range Interpretation Comments Glucose POC (test code = 54671375) 85 mg/dL 74-106 Lab Interpretation (test code = Normal 70156-7) [facility] [id number] 08:09:01 Test Item Value Reference Range Interpretation Comments Glucose POC (test code = 76789554) 85 mg/dL 74-106 Lab Interpretation (test code = Normal 13652-0) [facility] [id number] 08:09:01 Test Item Value Reference Range Interpretation Comments Glucose POC (test code = 93080421) 85 mg/dL 74-106 Lab Interpretation (test code = Normal 68939-8) [facility] [id number] 08:09:01 Test Item Value Reference Range Interpretation Comments Glucose POC (test code = 30890765) 85 mg/dL 74-106 Lab Interpretation (test code = Normal 80091-8) [facility] [id number] 08:09:01 Test Item Value Reference Range Interpretation Comments Glucose POC (test code = 74955791) 85 mg/dL 74-106 Lab Interpretation (test code = Normal 78607-2) [facility] [id number] 08:09:01 Test Item Value Reference Range Interpretation Comments Glucose POC (test code = 07598641) 85 mg/dL 74-106 Lab Interpretation (test code = Normal 49860-8) [facility] [id number] 08:09:01 Test Item Value Reference Range Interpretation Comments Glucose POC (test code = 52023494) 85 mg/dL 74-106 Lab Interpretation (test code = Normal 53928-2) [facility] [id number] 08:09:01 Test Item Value Reference Range Interpretation Comments Glucose POC (test code = 49649364) 85 mg/dL 74-106 Lab Interpretation (test code = Normal 04790-0) [facility] [id number] 08:09:01 Test Item Value Reference Range Interpretation Comments Glucose POC (test code = 39556122) 85 mg/dL 74-106 Lab Interpretation (test code = Normal 33762-8) [facility] [id number] 08:09:01 Test Item Value Reference Range Interpretation Comments Glucose POC (test code = 79089833) 85 mg/dL 74-106 Lab Interpretation (test code = Normal 13064-4) [facility] [id number] 08:09:01 Test Item Value Reference Range Interpretation Comments Glucose POC (test code = 52788489) 85 mg/dL 74-106 Lab Interpretation (test code = Normal 49482-2) [facility] docked [id number] 08:09:01 Test Item Value Reference Range Interpretation Comments Glucose POC (test code = 36389687) 85 mg/dL 74-106 Lab Interpretation (test code = Normal 24287-6) [facility], [facility], [id number] 23:25:40 Test Item Value Reference Range Interpretation Comments COVID-19 (SARS-COV-2) Not Detected Not Detected INTERP RETATION: No (test code = 73921-8) detect able levels of SARS-CoV-2 Coronavirus (COVID-19) [...] SARS-CoV-2 mole cular diagnostic assa y utilizes Private Client Advisor Mediated Amplification ( TMA) technology to r apidly detect the SARS -CoV-2 (COVID-19) viru s from respiratory adriana ples. In accordance w ith the FDA's kamran nce document "Polic y for Diagnostic Test s for Coronavirus Disease-2019 du [facility] the [facility] th Emergency", thi s test was developed, and its performance characteristics were verified by the [facility] molecular diagn ostics laboratory and is authorized for clinical diagno stic use. This labor atory is certified un estevan the Clinical Laboratory Improvement Amendments (CLI A) as qualified to pe rform high complexity clinical labora tory testing. Lab Interpretation Normal (test code = 76145-6) [facility] ORF1ab Resp Ql OLENA+[id number] 23:25:40 Test Item Value Reference Range Interpretation Comments Hospitalized? (test No code = 26719-5) ICU? (test code = No 21570-3) Symptomatic as No defined by CDC? (test code = 31526-4) Employed in No Healthcare? (test code = 31485-7) Resident in a No congregate care setting (including nursing homes, residential care for people with intellectual and developmental disabilities, psychiatric treatment facilities, group homes, board and care homes, homeless residential, foster care or other): (test code = 87615-0) SARS-CoV-2 ORF1ab NOT DETECTED Not Detected INTERPRETA TION: No Resp Ql OLENA+probe detectable levels of (test code = SARS-CoV-2 22361-0) Coronavirus (COVID-19) were present in this patient's [...] SARS-CoV-2 mole cular diagnostic assa y utilizes Private Client Advisor Mediated Amplification ( TMA) technology to r apidly detect the SARS -CoV-2 (COVID-19) viru s from respiratory adriana ples. In accordance with\\XC2A0\\the FDA's guidance docume nt "Policy for Diagnostic Test s for Coronavirus Disease-2019 du [facility] the [facility] th Emergency", amalia s test was developed, and its performance characteristics were verified by the [facility] molecular diagn ostics laboratory and is authorized for clinical diagno stic use. \\XC2A0\\Thi s laboratory is certified under the Clinical Labora tory Improvement Amendments (CLI A) as qualified to pe rform high complexity clinical labora tory testing. HHS12 Lead [id number] 15:46:1012 LEAD EKG FOR [facility] Test Date: 0980-66-00Ntj Name: DORA MCNEILL Department: 5ECIPatient ID: [id number] Room: Gender: M 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: [id number]: 1970 Requested By: SUSHIL Cho Number: [id number] Reading MD: Rene Patterson MeasurementsIntervals [place] Rate: 61 P: 72PR: 152 QRS: 55QRSD: 106 T: 63QT: 398 QTc: 400 Interpretive StatementsSINUS RHYTHMPOSSIBLE RIGHT VENTRICULAR CONDUCTION DELAY [RSR (QR) IN V1/V2]Electronically Signed On 01-22-2022 8:30:45 CDT by Rene SadiRevealMercy Hospital Ozarkflo.do [place] [address] Lead [id number] 15:46:1012 LEAD EKG FOR [facility] Test Date: 5617-33-56Fuq Name: DORA MCNEILL Department: 5ECIPatient ID: [id number] Room: Gender: M 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: [id number]: 1970 Requested By: SUSHIL Cho Number: [id number] Reading MD: Rene Patterson MeasurementsIntervals [place] Rate: 61 P: 72PR: 152 QRS: 55QRSD: 106 T: 63QT: 398 QTc: 400 Interpretive StatementsSINUS RHYTHMPOSSIBLE RIGHT VENTRICULAR CONDUCTION DELAY [RSR (QR) IN V1/V2]Electronically Signed On 01-22-2022 8:30:45 CDT by Rene Aardvark Ehsrpo49 Lead [id number] 15:46:1012 LEAD EKG FOR [facility] Test Date: 1162-13-26Yxv Name: DORA MCNEILL Department: 5ECIPatient ID: [id number] Room: Gender: M 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: [id number]: 1970 Requested By: SUSHIL Cho Number: [id number] Reading MD: Rene Patterson MeasurementsIntervals [place] Rate: 61 P: 72PR: 152 QRS: 55QRSD: 106 T: 63QT: 398 QTc: 400 Interpretive StatementsSINUS RHYTHMPOSSIBLE RIGHT VENTR ICULAR CONDUCTION DELAY [RSR (QR) IN V1/V2]Electronically Signed On 01-22-2022 8:30:45 CDT by Rene [employer]12 Lead [id number] 15:46:1012 LEAD EKG FOR [facility] Test Date: 4434-95-71Nck Name: DORA MCNEILL Department: 5ECIPatient ID: [id number] Room: Gender: M 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: [id number]: 1970 Requested By: SUSHIL Cho Number: [id number] Reading MD: Rene Patterson MeasurementsIntervals [place] Rate: 61 P: 72PR: 152 QRS: 55QRSD: 106 T: 63QT: 398 QTc: 400 Interpretive StatementsSINUS RHYTHMPOSSIBLE RIGHT VENTRICULAR CONDUCTION DELAY [RSR (QR) IN V1/V2]Electronically Signed On 01-22-2022 8:30:45 CDT by Rene [employer]12 Lead [id number] 15:46:1012 LEAD EKG FOR [facility] Test Date: 9541-96-15Chn Name: DORA MCNEILL Department: 5ECIPatient ID: [id number] Room: Gender: M 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: [id number]: 1970 Requested By: SUSHIL Cho Number: [id number] Reading MD: Rene Patterson MeasurementsIntervals [place] Rate: 61 P: 72PR: 152 QRS: 55QRSD: 106 T: 63QT: 398 QTc: 400 Interpretive StatementsSINUS RHYTHMPOSSIBLE RIGHT VENTRICULAR CONDUCTION DELAY [RSR (QR) IN V1/V2]Electronically Signed On 01-22-2022 8:30:45 CDT by [employer]12 Lead [id number] 15:46:1012 LEAD EKG FOR [facility] Test Date: 4207-96-50Yfs Name: DORA MCNEILL Department: 5ECIPatient ID: [id number] Room: Gender: M 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: [id number]: 1970 Requested By: SUSHIL Cho Number: [id number] Reading MD: Rene Patterson MeasurementsIntervals [place] Rate: 61 P: 72PR:152 QRS: 55QRSD: 106 T: 63QT: 398 QTc: 400 Interpretive StatementsSINUS RHYTHMPOSSIBLE RIGHT VENTRICULAR CONDUCTION DELAY [RSR (QR) IN V1/V2]Electronically Signed On 01-22-2022 8:30:45 CDT by Rene [place] [address] Lead [id number] 15:46:1012 LEAD EKG FOR [facility] Test Date: 5642-16-57Yjm Name: DORA MCNEILL Department: 5EPatient ID: [id number] Room: Gender: M 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: [id number]: 1970 Requested By: SUSHIL Cho Number: [id number] Reading MD: Rene Patterson MeasurementsIntervals [place] Rate: 61 P: 72PR: 152 QRS: 55QRSD: 106 T: 63QT: 398 QTc: 400 Interpretive StatementsSINUS RHYTHMPOSSIBLE RIGHT VENTRI CULAR CONDUCTION DELAY [RSR (QR) IN V1/V2]Electronically Signed On 01-22-2022 8:30:45 CDT by Rene [place] [address] Lead [id number] 15:46:1012 LEAD EKG FOR [facility] Test Date: 6448-39-18Ldq Name: DORA MCNEILL Department: 5ECIPatient ID: [id number] Room: Gender: M 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: [id number]: 1970 Requested By: SUSHIL Cho Number: [id number] Reading MD: Rene Patterson MeasurementsIntervals [place] Rate: 61 P: 72PR: 152 QRS: 55QRSD: 106 T: 63QT: 398 QTc: 400 Interpretive StatementsSINUS RHYTHMPOSSIBLE RIGHT VENTRICULAR CONDUCTION DELAY [RSR (QR) IN V1/V2]Electronically Signed On 01-22-2022 8:30:45 CDT by Rene RacharisseanSMSHarris Cjkjwp22 Lead [id number] 15:46:1012 LEAD EKG FOR [facility] Test Date: 2606-94-71Jlv Name: DORA MCNEILL Department: 5ECIPatient ID: [id number] Room: Gender: M 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: [id number]: 1970 Requested By: SUSHIL Cho Number: [id number] Reading MD: Rene Patterson MeasurementsIntervals [place] Rate: 61 P: 72PR: 152 QRS: 55QRSD: 106 T: 63QT: 398 QTc: 400 Interpretive StatementsSINUS RHYTHMPOSSIBLE RIGHT VENTRICULAR CONDUCTION DELAY [RSR (QR) IN V1/V2]Electronically Signed On 01-22-2022 8:30:45 CDT by Rene Ardenris Mziuvf79 Lead [id number] 15:46:1012 LEAD EKG FOR [facility] Test Date: 2303-45-10Pyy Name: DORA MCNEILL Department: 5ECIPatient ID: [id number] Room: Gender: M 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: [id number]: 1970 Requested By: SUSHIL Cho Number: [id number] Reading MD: Rene Patterson MeasurementsIntervals [place] Rate: 61 P: 72PR: 152 QRS: 55QRSD: 106 T: 63QT: 398 QTc: 400 Interpretive StatementsSINUS RHYTHMPOSSIBLE RIGHT VENTRICULAR CONDUCTION DELAY [RSR (QR) IN V1/V2]Electronically Signed On 01-22-2022 8:30:45 CDT by Rene Ardenris Juamsx33 Lead [id number] 15:46:1012 LEAD EKG FOR [facility] Test Date: 0196-56-71Dgk Name: DORA MCNEILL Department: 5ECIPatient ID: [id number] Room: Gender: M 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: [id number]: 1970 Requested By: SUSHIL Cho Number: [id number] Reading MD: Rene Patterson MeasurementsIntervals [place] Rate: 61 P: 72PR: 152 QRS: 55QRSD: 106 T: 63QT: 398 QTc: 400 Interpretive StatementsSINUS RHYTHMPOSSIBLE RIGHT VENTR ICULAR CONDUCTION DELAY [RSR (QR) IN V1/V2]Electronically Signed On 01-22-2022 8:30:45 CDT by Rene Valle Rcgrzb07 Lead [id number] 15:46:1012 LEAD EKG FOR [facility] Test Date: 5584-05-66Qmm Name: DORA MCNEILL Department: 5EPatient ID: [id number] Room: Gender: 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: [id number]: 1970 Requested By: SUSHIL Cho Number: [id number] Reading MD: Rene Patterson MeasurementsIntervals [place] Rate: 61 P: 72PR: 152 QRS: 55QRSD: 106 T: 63QT: 398 QTc: 400 Interpretive StatementsSINUS RHYTHMPOSSIBLE RIGHT VENTRICULAR CONDUCTION DELAY [RSR (QR) IN V1/V2]Electronically Signed On 01-22-2022 8:30:45 CDT by Tony Grndie19 Lead [id number] 15:46:1012 LEAD EKG FOR [facility] Test Date: 5540-47-82Amg Name: DORA MCNEILL Department: 5ECIPatient ID: [id number] Room: Gender: 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: [id number]: 1970 Requested By: SUSHIL Cho Number: [id number] Reading MD: Rene Patterson MeasurementsIntervals [place] Rate: 61 P: 72PR: 152 QRS: 55QRSD: 106 T: 63QT: 398 QTc: 400 Interpretive StatementsSINUS RHYTHMPOSSIBLE RIGHT VENTRICULAR CONDUCTION DELAY [RSR (QR) IN V1/V2]Electronically Signed On 01-22-2022 8:30:45 CDT by Rene Valle Zmeunu76 Lead [id number] 15:46:1012 LEAD EKG FOR [facility] Test Date: 2115-72-26Dgb Name: DORA MCNEILL Department: 5ECIPatient ID: [id number] Room: Gender: M 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: [id number]: 1970 Requested By: SUSHIL Cho Number: [id number] Reading MD: Rene Patterson MeasurementsIntervals [place] Rate: 61 P: 72PR:152 QRS: 55QRSD: 106 T: 63QT: 398 QTc: 400 Interpretive StatementsSINUS RHYTHMPOSSIBLE RIGHT VENTRICULAR CONDUCTION DELAY [RSR (QR) IN V1/V2]Electronically Signed On 01-22-2022 8:30:45 CDT by Rene Valle Wggftv62 Lead [id number] 15:46:1012 LEAD EKG FOR [facility] Test Date: 2757-92-79Aql Name: DORA MCNEILL Department: 5ECIPatient ID: [id number] Room: Gender: M 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: [id number]: 1970 Requested By: SUSHIL Cho Number: [id number] Reading MD: Rene Patterson MeasurementsIntervals [place] Rate: 61 P: 72PR: 152 QRS: 55QRSD: 106 T: 63QT: 398 QTc: 400 Interpretive StatementsSINUS RHYTHMPOSSIBLE RIGHT VENTR ICULAR CONDUCTION DELAY [RSR (QR) IN V1/V2]Electronically Signed On 01-22-2022 8:30:45 CDT by Rene Valle Jybjpw90 Lead [id number] 15:46:1012 LEAD EKG FOR [facility] Test Date: 5937-94-02Gdt Name: DORA MCNEILL Department: 5ECIPatient ID: [id number] Room: Gender: M 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: [id number]: 1970 Requested By: SUSHIL Cho Number: [id number] Reading MD: Rene Patterson MeasurementsIntervals [place] Rate: 61 P: 72PR: 152 QRS: 55QRSD: 106 T: 63QT: 398 QTc: 400 Interpretive StatementsSINUS RHYTHMPOSSIBLE RIGHT VENTRICULAR CONDUCTION DELAY [RSR (QR) IN V1/V2]Electronically Signed On 01-22-2022 8:30:45 CDT by Rene HerBoston Power12 Lead [id number] 15:46:1012 LEAD EKG FOR [facility] Test Date: 0440-06-73Idu Name: DORA MCNEILL Department: 5ECIPatient ID: [id number] Room: Gender: M 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: [id number]: 1970 Requested By: SUSHIL Cho Number: [id number] Reading MD: Rene Patterson MeasurementsIntervals [place] Rate: 61 P: 72PR: 152 QRS: 55QRSD: 106 T: 63QT: 398 QTc: 400 Interpretive StatementsSINUS RHYTHMPOSSIBLE RIGHT VENTRICULAR CONDUCTION DELAY [RSR (QR) IN V1/V2]Electronically Signed On 01-22-2022 8:30:45 CDT by Rene Valle Asyujk22 Lead [id number] 15:46:1012 LEAD EKG FOR [facility] Test Date: 2865-41-81Ibb Name: DORA MCNEILL Department: 5EPatient ID: [id number] Room: Gender: M 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: [id number]: 1970 Requested By: SUSHIL Cho Number: [id number] Reading MD: Rene Patterson MeasurementsIntervals [place] Rate: 61 P: 72PR: 152 QRS: 55QRSD: 106 T: 63QT: 398 QTc: 400 Interpretive StatementsSINUS RHYTHMPOSSIBLE RIGHT VENTRICULAR CONDUCTION DELAY [RSR (QR) IN V1/V2]Electronically Signed On 01-22-2022 8:30:45 CDT by Rene Valle Vjgxqs11 Lead [id number] 15:46:1012 LEAD EKG FOR [facility] Test Date: 6812-18-08Vax Name: DORA MCNEILL Department: 5ECIPatient ID: [id number] Room: Gender: M 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: [id number]: 1970 Requested By: SUSHIL Cho Number: [id number] Reading MD: Rene Patterson MeasurementsIntervals [place] Rate: 61 P: 72PR: 152 QRS: 55QRSD: 106 T: 63QT: 398 QTc: 400 Interpretive StatementsSINUS RHYTHMPOSSIBLE RIGHT VENTRI CULAR CONDUCTION DELAY [RSR (QR) IN V1/V2]Electronically Signed On 01-22-2022 8:30:45 CDT by Rene RaanSMSHarris Uujnbk91 Lead [id number] 15:46:1012 LEAD EKG FOR [facility] Test Date: 0669-39-72Hwc Name: DORA MCNEILL Department: 5ECIPatient ID: [id number] Room: Gender: M 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: [id number]: 1970 Requested By: SUSHIL Cho Number: [id number] Reading MD: Rene Patterson MeasurementsIntervals [place] Rate: 61 P: 72PR: 152 QRS: 55QRSD: 106 T: 63QT: 398 QTc: 400 Interpretive StatementsSINUS RHYTHMPOSSIBLE RIGHT VENTRICULAR CONDUCTION DELAY [RSR (QR) IN V1/V2]Electronically Signed On 01-22-2022 8:30:45 CDT by Rene RaanSRevealHarris Kjafwe24 Lead [id number] 15:46:1012 LEAD EKG FOR [facility] Test Date: 3188-86-09Ncm Name: DORA MCNEILL Department: 5ECIPatient ID: [id number] Room: Gender: M 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: [id number]: 1970 Requested By: SUSHIL Cho Number: [id number] Reading MD: Rene Patterson MeasurementsIntervals [place] Rate: 61 P: 72PR : 152 QRS: 55QRSD: 106 T: 63QT: 398 QTc: 400 Interpretive StatementsSINUS RHYTHMPOSSIBLE RIGHT VENTRICULAR CONDUCTION DELAY [RSR (QR) IN V1/V2]Electronically Signed On 01-22-2022 8:30:45 CDT by Rene [facility] HospitalanSRevealHarProv[facility]12 Lead [id number] 15:46:1012 LEAD EKG FOR [facility] Test Date: 4048-54-32Yew Name: DORA MCNEILL Department: 5ECIPatient ID: [id number] Room: Gender: M 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: [id number]: 1970 Requested By: SUSHIL Cho Number: [id number] Reading MD: Rene Patterson MeasurementsIntervals [place] Rate: 61 P: 72PR: 152 QRS: 55QRSD: 106 T: 63QT: 398 QTc: 400 Interpretive StatementsSINUS RHYTHMPOSSIBLE RIGHT VENTRICULAR CONDUCTION DELAY [RSR (QR) IN V1/V2]Electronically Signed On 01-22-2022 8:30:45 CDT by Rene [facility] HospitalRecycling AngelJust[place] [address] Lead [id number] 15:46:1012 LEAD EKG FOR [facility] Test Date: 5228-86-02Yic Name: DORA MCNEILL Department: 5ECIPatient ID: [id number] Room: Gender: M 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: [id number]: 1970 Requested By: SUSHIL LOERA Marquis Number: [id number] Reading MD: Rene Patterson MeasurementsIntervals [place] Rate: 61 P: 72PR: 152 QRS: 55QRSD: 106 T: 63QT: 398 QTc: 400 Interpretive StatementsSINUS RHYTHMPOSSIBLE RIGHT VENTRI CULAR CONDUCTION DELAY [RSR (QR) IN V1/V2]Electronically Signed On 01-22-2022 8:30:45 CDT by Rene [facility]2 Ab+HIV1 p24 Ag SerPl Ql [place] 2022-01-18 07:02:58 Test Item Value Reference Range Interpretation Comments HIV 1+2 Ab+HIV1 p24 Ag SerPl Ql [place] NEGATIVE Negative (test code = 52619-7) [id number] 21:23:2512 LEAD EKG FOR [facility] Test Date: 0852-68-67Pcj Name: DORA MCNEILL Department: 5520Patient ID: [id number] Room: 8L87Hzizna: M 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1970 Requested By: KARIN Ryna Number: [id number] Reading MD: Chiara Calles MeasurementsIntervals [place] Rate: 72 P: 90PR:157 QRS: 87QRSD: 105 T: 90QT: 360 QTc: 384 Interpretive StatementsSINUS RHYTHMPOSSIBLE RIGHT VENTRICULAR CONDUCTION DELAY [RSR (QR) IN V1/V2]EARLY REPOLARIZATION [ST ELEVATION WITH NORMALLY INFLECTED T- WAVE]Electronically Signed On 01-17-2022 13:02:30 CDT by [place] 14[address]1022-05-26 21:23:2512 LEAD EKG FOR [facility] Test Date: 1646-83-74Dbq Name: DORA MCNEILL Department: 5520Patient ID: [id number] Room: 5Z38Iraoeo: M 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1970 Requested By: KARIN BASSETT AOrder Number: [id number] Reading MD: Chiara Calles MeasurementsIntervals [place] Rate: 72 P: 90PR:157 QRS: 87QRSD: 105 T: 90QT: 360 QTc: 384 Interpretive StatementsSINUS RHYTHMPOSSIBLE RIGHT VENTRICULAR CONDUCTION DELAY [RSR (QR) IN V1/V2]EARLY REPOLARIZATION [ST ELEVATION WITH NORMALLY INFLECTED T- WAVE]Electronically Signed On 01-17-2022 13:02:30 CDT by [facility] CenterGlacier BayCourtney [place] [address]KnhmuaWUO3099-54-77 21:23:2512 LEAD EKG FOR [facility] Test Date: 4326-12-35Uit Name: DORA MCNEILL Department: 5520Patient ID: [id number] Room: 6L89Ykbzec: M 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1970 Requested By: JESSICA AOrder Number: [id number] Reading MD: Chiara Calles MeasurementsIntervals [place] Rate: 72 P: 90PR: 157 QRS: 87QRSD: 105 T: 90QT: 360 QTc: 384 Interpretive StatementsSINUS RHYTHMPOSSIBLE RIGHT VENTRICULAR CONDUCTION DELAY [RSR (QR) IN V1/V2]EARLY REPOLARIZATION [ST ELEVATION WITH NORMALLY INFLECTED T- WAVE]Electronically Signed On 01-17-2022 13:02:30 CDT by [place] 14[address]1022-05-26 21:23:2512 LEAD EKG FOR [facility] Test Date: 4011-16-17Akf Name: DORA MCNEILL Department: 5520Patient ID: [id number] Room: 7B42Ckzgfp: M 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1970 Requested By: KARIN BASSETT AOrder Number: [id number] Reading MD: Chiara Calles MeasurementsIntervals [place] Rate: 72 P: 90PR:157 QRS: 87QRSD: 105 T: 90QT: 360 QTc: 384 Interpretive StatementsSINUS RHYTHMPOSSIBLE RIGHT VENTRICULAR CONDUCTION DELAY [RSR (QR) IN V1/V2]EARLY REPOLARIZATION [ST ELEVATION WITH NORMALLY INFLECTED T- WAVE]Electronically Signed On 01-17-2022 13:02:30 CDT by [facility] PetHubCourtney [place] [address]EytnxsFJI4276-99-37 21:23:2512 LEAD EKG FOR [facility] Test Date: 9636-77-22Dcg Name: DORA PAEZRY Department: 5520Patient ID: [id number] Room: 9H78Jwlfzg: M 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1970 Requested By: KARIN BASSETT AOrder Number: [id number] Reading MD: Chiara Calles MeasurementsIntervals [place] Rate: 72 P: 90PR: 157 QRS: 87QRSD: 105 T: 90QT: 360 QTc: 384 Interpretive StatementsSINUS RHYTHMPOSSIBLE RIGHT VENTRICULAR CONDUCTION DELAY [RSR (QR) IN V1/V2]EARLY REPOLARIZATION [ST ELEVATION WITH NORMALLY INFLECTED T- WAVE]Electronically Signed On 01-17-2022 13:02:30 CDT by [facility] PetHubCourtney [place] [address]YkkxcuKKF4442-38-04 21:23:2512 LEAD EKG FOR [facility] Test Date: 8258-48-15Vns Name: DORA MCNEILL Department: 5520Patient ID: [id number] Room: 8L28Wslxpv: M 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1970 Requested By: KARIN BASSETT AOrder Number: [id number] Reading MD: Chiara Calles MeasurementsIntervals [place] Rate: 72 P: 90PR: 157 QRS: 87QRSD: 105 T: 90QT: 360 QTc: 384 Interpretive StatementsSINUS RHYTHMPOSSIBLE RIGHT VENTRICULAR CONDUCTION DELAY [RSR (QR) IN V1/V2]EARLY REPOLARIZATION [ST ELEVATION WITH NORMALLY INFLECTED T- WAVE]Electronically Signed On 01-17-2022 13:02:30 CDT by [facility] Bio[employer] Technology SolutionsBrianna [place] 35969022-05-26 21:23:2512 LEAD EKG FOR [facility] Test Date: 7760-91-44Jes Name: DORA PAEZRY Department: 5520Patient ID: [id number] Room: 1G85Gznstg: M 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1970 Requested By: KARIN BASSETT AOrder Number: [id number] Reading MD: Chiara Calles MeasurementsIntervals [place] Rate: 72 P: 90PR:157 QRS: 87QRSD: 105 T: 90QT: 360 QTc: 384 Interpretive StatementsSINUS RHYTHMPOSSIBLE RIGHT VENTRICULAR CONDUCTION DELAY [RSR (QR) IN V1/V2]EARLY REPOLARIZATION [ST ELEVATION WITH NORMALLY INFLECTED T- WAVE]Electronically Signed On 01-17-2022 13:02:30 CDT by Arno TherapeuticsEKG2022-05-26 21:23:2512 LEAD EKG FOR [facility] Test Date: 7696-39-47Fhu Name: DORA MCNEILL Department: 5520Patient ID: [id number] Room: 5I18Obzizm: M 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1970 Requested By: JESSICA AOrder Number: [id number] Reading MD: Chiara Calles MeasurementsIntervals [place] Rate: 72 P: 90PR: 157 QRS: 87QRSD: 105 T: 90QT: 360 QTc: 384 Interpretive StatementsSINUS RHYTHMPOSSIBLE RIGHT VENTRICULAR CONDUCTION DELAY [RSR (QR) IN V1/V2]EARLY REPOLARIZATION [ST ELEVATION WITH NORMALLY INFLECTEDT- WAVE]Electronically Signed On 01-17-2022 13:02:30 CDT by [facility] OzarkBoston PowerUpcbpxYJQ4555-52-31 21:23:2512 LEAD EKG FOR [facility] Test Date: 7100-84-99Pbp Name: DORA MCNEILL Department: 5520Patient ID: [id number] Room: 5M32Ogziji: M 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1970 Requested By: KARIN BASSETT AOrder Number: [id number] Reading MD: Chiara Calles MeasurementsIntervals [place] Rate: 72 P: 90PR:157 QRS: 87QRSD: 105 T: 90QT: 360 QTc: 384 Interpretive StatementsSINUS RHYTHMPOSSIBLE RIGHT VENTRICULAR CONDUCTION DELAY [RSR (QR) IN V1/V2]EARLY REPOLARIZATION [ST ELEVATION WITH NORMALLY INFLECTED T- WAVE]Electronically Signed On 01-17-2022 13:02:30 CDT by [place] 14631022-05-26 21:23:2512 LEAD EKG FOR [facility] Test Date: 5821-39-62Hsg Name: DORA MCNEILL Department: 5520Patient ID: [id number] Room: 3X22Mddtbu: M 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1970 Requested By: KARIN BASSETT AOrder Number: [id number] Reading MD: Chiara Calles MeasurementsIntervals [place] Rate: 72 P: 90PR: 157 QRS: 87QRSD: 105 T: 90QT: 360 QTc: 384 Interpretive StatementsSINUS RHYTHMPOSSIBLE RIGHT VENTRICULAR CONDUCTION DELAY [RSR (QR) IN V1/V2]EARLY REPOLARIZATION [ST ELEVATION WITH NORMALLY INFLECTED T- WAVE]Electronically Signed On 01-17-2022 13:02:30 CDT by [place] 14631022-05-26 21:23:2512 LEAD EKG FOR [facility] Test Date: 9173-53-85Kjw Name: DORA MCNEILL Department: 5520Patient ID: [id number] Room: 8H57Hcapxc: M 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1970 Requested By: KARIN BASSETT AOrder Number: [id number] Reading MD: Chiara Calles MeasurementsIntervals [place] Rate: 72 P: 90PR:157 QRS: 87QRSD: 105 T: 90QT: 360 QTc: 384 Interpretive StatementsSINUS RHYTHMPOSSIBLE RIGHT VENTRICULAR CONDUCTION DELAY [RSR (QR) IN V1/V2]EARLY REPOLARIZATION [ST ELEVATION WITH NORMALLY INFLECTED T- WAVE]Electronically Signed On 01-17-2022 13:02:30 CDT by [facility] CenterGlacier BayCourtney [place] [address]GzlqniZOI3911-51-72 21:23:2512 LEAD EKG FOR [facility] Test Date: 1118-40-11Jrk Name: DORA MCNEILL Department: 5520Patient ID: [id number] Room: 2V56Wjxzzd: M 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1970 Requested By: KARIN BASSETT AOrder Number: [id number] Reading MD: Chiara Calles MeasurementsIntervals [place] Rate: 72 P: 90PR: 157 QRS: 87QRSD: 105 T: 90QT: 360 QTc: 384 Interpretive StatementsSINUS RHYTHMPOSSIBLE RIGHT VENTRICULAR CONDUCTION DELAY [RSR (QR) IN V1/V2]EARLY REPOLARIZATION [ST ELEVATION WITH NORMALLY INFLECTED T-W AVE]Electronically Signed On 01-17-2022 13:02:30 CDT by Chiara [employer]va QksmqvGBT1076-01-85 21:23:2512 LEAD EKG FOR [facility] Test Date: 0639-16-49Ddk Name: DORA LESTER Department: 5520Patient ID: [id number] Room: 2P20Yvpzwz: M 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1970 Requested By: JESSICA AOrder Number: [id number] Reading MD: Chiara Calles MeasurementsIntervals [place] Rate: 72 P: 90PR: 157 QRS: 87QRSD: 105 T: 90QT: 360 QTc: 384 Interpretive StatementsSINUS RHYTHMPOSSIBLE RIGHT VENTRICULAR CONDUCTION DELAY [RSR (QR) IN V1/V2]EARLY REPOLARIZATION [ST ELEVATION WITH NORMALLY INFLECTEDT- WAVE]Electronically Signed On 01-17-2022 13:02:30 CDT by Chiara [employer] VobywxYDB1571-34-63 21:23:2512 LEAD EKG FOR [facility] Test Date: 5957-84-11Uig Name: DORA LESTER Department: 5520Patient ID: [id number] Room: 2B77Nghepn: M 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1970 Requested By: KARIN BASSETT AOrder Number: [id number] Reading MD: Chiara Calles MeasurementsIntervals [place] Rate: 72 P: 90PR: 157 QRS: 87QRSD: 105 T: 90QT: 360 QTc: 384 Interpretive StatementsSINUS RHYTHMPOSSIBLE RIGHT VENTRICULAR CONDUCTION DELAY [RSR (QR) IN V1/V2]EARLY REPOLARIZATION [ST ELEVATION WITH NORMALLY INFLECTED T- WAVE]Electronically Signed On 01-17-2022 13:02:30 CDT by [facility] PetHubMer[facility] Hospital OzarkAdStackBgjasaSGJ0574-54-13 21:23:2512 LEAD EKG FOR [facility] Test Date: 3074-06-43Xbv Name: DORA PAEZRY Department: 5520Patient ID: [id number] Room: 9R54Jruwbp: M 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1970 Requested By: KARIN BASSETT AOrder Number: [id number] Reading MD: Chiara Calles MeasurementsIntervals [place] Rate: 72 P: 90PR: 157 QRS: 87QRSD: 105 T: 90QT: 360 QTc: 384 Interpretive StatementsSINUS RHYTHMPOSSIBLE RIGHT VENTRICULAR CONDUCTION DELAY [RSR (QR) IN V1/V2]EARLY REPOLARIZATION [ST ELEVATION WITH NORMALLY INFLECTED T-W AVE]Electronically Signed On 01-17-2022 13:02:30 CDT by [facility] CenterQelloAva QfsdqvAUN3789-86-66 21:23:2512 LEAD EKG FOR [facility] Test Date: 8225-53-12Xhv Name: DORA PAEZRY Department: 5520Patient ID: [id number] Room: 0Q52Hiafwm: M 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1970 Requested By: JESSICA AOrder Number: [id number] Reading MD: Chiara Calles MeasurementsIntervals [place] Rate: 72 P: 90PR:157 QRS: 87QRSD: 105 T: 90QT: 360 QTc: 384 Interpretive StatementsSINUS RHYTHMPOSSIBLE RIGHT VENTRICULAR CONDUCTION DELAY [RSR (QR) IN V1/V2]EARLY REPOLARIZATION [ST ELEVATION WITH NORMALLY INFLECTED T- WAVE]Electronically Signed On 01-17-2022 13:02:30 CDT by [facility] CenterQelloMer[facility] [email or web address] [id number] 21:23:2512 LEAD EKG FOR [facility] Test Date: [id number] Name: DORA PAEZRY Department: [id number] ID: [id number] Room: 2I39Fdaxvg: M 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1970 Requested By: KARIN BASSETT AOrder Number: [id number] Reading MD: Chiara Calles MeasurementsIntervals [place] Rate: 72 P: 90PR:157 QRS: 87QRSD: 105 T: 90QT: 360 QTc: 384 Interpretive StatementsSINUS RHYTHMPOSSIBLE RIGHT VENTRICULAR CONDUCTION DELAY [RSR (QR) IN V1/V2]EARLY REPOLARIZATION [ST ELEVATION WITH NORMALLY INFLECTED T- WAVE]Electronically Signed On 01-17-2022 13:02:30 CDT by [facility] [place] [id number] 21:23:2512 LEAD EKG FOR [facility] Test Date: [id number] Name: DORA MCNEILL Department: 5520Patient ID: [id number] Room: 1Y70Mcttav: 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1970 Requested By: KARIN BASSETT AOrder Number: [id number] Reading MD: Chiara Calles MeasurementsIntervals [place] Rate: 72 P: 90PR:157 QRS: 87QRSD: 105 T: 90QT: 360 QTc: 384 Interpretive StatementsSINUS RHYTHMPOSSIBLE RIGHT VENTRICULAR CONDUCTION DELAY [RSR (QR) IN V1/V2]EARLY REPOLARIZATION [ST ELEVATION WITH NORMALLY INFLECTED T- WAVE]Electronically Signed On 01-17-2022 13:02:30 CDT by [facility]ello[facility] KmahfxMXD9779-07-92 21:23:2512 LEAD EKG FOR [facility] Test Date: [id number] Name: DORA MCNEILL Department: 5520Patient ID: [id number] Room: 4J92Ivlzkf: 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1970 Requested By: JESSICA AOrder Number: [id number] Reading MD: Chiara Calles MeasurementsIntervals [place] Rate: 72 P: 90PR: 157 QRS: 87QRSD: 105 T: 90QT: 360 QTc: 384 Interpretive StatementsSINUS RHYTHMPOSSIBLE RIGHT VENTRICULAR CONDUCTION DELAY [RSR (QR) IN V1/V2]EARLY REPOLARIZATION [ST ELEVATION WITH NORMALLY INFLECTEDT- WAVE]Electronically Signed On 01-17-2022 13:02:30 CDT by [facility] [place] [id number] 21:23:2512 LEAD EKG FOR [facility] Test Date: 4614-21-49Ehx Name: DORA MCNEILL Department: 5520Patient ID: [id number] Room: 3F71Vzxxoo: M 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1970 Requested By: KARIN BASSETT AOrder Number: [id number] Reading MD: Chiaar Calles MeasurementsIntervals [place] Rate: 72 P: 90PR:157 QRS: 87QRSD: 105 T: 90QT: 360 QTc: 384 Interpretive StatementsSINUS RHYTHMPOSSIBLE RIGHT VENTRICULAR CONDUCTION DELAY [RSR (QR) IN V1/V2]EARLY REPOLARIZATION [ST ELEVATION WITH NORMALLY INFLECTED T- WAVE]Electronically Signed On 01-17-2022 13:02:30 CDT by [facility] [employer] SolutionsBri[place] [id number] 21:23:2512 LEAD EKG FOR [facility] Test Date: [id number] Name: DORA MCNEILL Department: 5520Patient ID: [id number] Room: 5C76Uagwam: 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1970 Requested By: KARIN BASSETT AOrder Number: [id number] Reading MD: Chiara Calles MeasurementsIntervals [place] Rate: 72 P: 90PR:157 QRS: 87QRSD: 105 T: 90QT: 360 QTc: 384 Interpretive StatementsSINUS RHYTHMPOSSIBLE RIGHT VENTRICULAR CONDUCTION DELAY [RSR (QR) IN V1/V2]EARLY REPOLARIZATION [ST ELEVATION WITH NORMALLY INFLECTED T- WAVE]Electronically Signed On 01-17-2022 13:02:30 CDT [facility] CenterAstupmXRK4571-14-45 21:23:2512 LEAD EKG FOR [facility] Test Date: [id number] Name: DORA MCNEILL Department: 5520Patient ID: [id number] Room: 8H08Ymckyc: M 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1970 Requested By: KARIN BASSETT AOrder Number: [id number] Reading MD: Chiara Calles MeasurementsIntervals [place] Rate: 72 P: 90PR: 157 QRS: 87QRSD: 105 T: 90QT: 360 QTc: 384 Interpretive StatementsSINUS RHYTHMPOSSIBLE RIGHT VENTRICULAR CONDUCTION DELAY [RSR (QR) IN V1/V2]EARLY REPOLARIZATION [ST ELEVATION WITH NORMALLY INFLECTED T- WAVE]Electronically Signed On 01-17-2022 13:02:30 CDT by Arno TherapeuticsEKG2022-05-26 21:23:2512 LEAD EKG FOR [facility] Test Date: [id number] Name: DORA MCNEILL Department: 5520Patient ID: [id number] Room: 9J30Jgxgpa: M 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 (test No code = 40757-2) ICU? (test code = No 27793-5) Symptomatic as No defined by CDC? (test code = 20966-6) Employed in No Healthcare? (test code = 00057-8) Resident in a No congregate care setting (including nursing homes, residential care for people with intellectual and developmental disabilities, psychiatric treatment facilities, group homes, board and care homes, homeless residential, foster care or other): (test code = 72907-4) SARS-CoV-2 ORF1ab NOT DETECTED Not Detected INTERPRETA TION: No Resp Ql OLENA+probe detectable levels of (test code = SARS-CoV-2 71283-8) Coronavirus (COVID-19) were present in this patient's [...] SARS-CoV-2 mole cular diagnostic assa y utilizes Private Client Advisor Mediated Amplification ( TMA) technology to r apidly detect the SARS -CoV-2 (COVID-19) viru s from respiratory adriana ples. In accordance with\\XC2A0\\the FDA's guidance docume nt "Policy for Diagnostic Test s for Coronavirus Disease-2019 du ring the Public Heal th Emergency", amalia s test was developed, and its performance characteristics were verified by the [facility] molecular diagn ostics laboratory and is authorized for clinical diagno stic use. \\XC2A0\\Thi s laboratory is certified under the Clinical Labora tory Improvement Amendments (CLI A) as qualified to pe rform high complexity clinical labora tory testing. [facility] CREATININE POC docked [id number] 13:57:55 Test Item Value Reference Range Interpretation Comments Creatinine POC (test 2.4 mg/dL 0.6-1.3 H Physici an Notified code = 98100511) eGFR (test code = 30 See_Comment L [Automate d message] 75783455) The system niiu generated this result transmit dain reference range : >=90 mL/min/1.7 3 m2. The reference r meredith was not used to interpret this result as normal/abnormal . eGFR If Am (test 35 See_Comment L [A utomated message] code = 33827183) The system which generated this result transmit dain reference range : >=90 mL/min/1.7 3 m2. The reference r meredith was not used to interpret this result as normal/abnormal . Lab Interpretation (test Abnormal code = 58866-3) [facility] CREATININE POC docked [id number] 13:57:55 Test Item Value Reference Range Interpretation Comments Creatinine POC (test 2.4 mg/dL 0.6-1.3 H Physici an Notified code = 55488607) eGFR (test code = 30 See_Comment L [Automate d message] 15685388) The system niiu generated this result transmit dain reference range : >=90 mL/min/1.7 3 m2. The reference r meredith was not used to interpret this result as normal/abnormal . eGFR If Am (test 35 See_Comment L [A utomated message] code = 24094971) The system which generated this result transmit dain reference range : >=90 mL/min/1.7 3 m2. The reference r meredith was not used to interpret this result as normal/abnormal . Lab Interpretation (test Abnormal code = 32294-9) [facility] CREATININE POC docked [id number] 13:57:55 Test Item Value Reference Range Interpretation Comments Creatinine POC (test 2.4 mg/dL 0.6-1.3 H Physici an Notified code = 05354009) eGFR (test code = 30 See_Comment L [Automate d message] 31970840) The system niiu generated this result transmit dain reference range : >=90 mL/min/1.7 3 m2. The reference r meredith was not used to interpret this result as normal/abnormal . eGFR If Am (test 35 See_Comment L [A utomated message] code = 58938139) The system which generated this result transmit dain reference range : >=90 mL/min/1.7 3 m2. The reference r meredith was not used to interpret this result as normal/abnormal . Lab Interpretation (test Abnormal code = 63707-5) [facility] CREATININE POC docked [id number] 13:57:55 Test Item Value Reference Range Interpretation Comments Creatinine POC (test 2.4 mg/dL 0.6-1.3 H Physici an Notified code = 08083429) eGFR (test code = 30 See_Comment L [Automate d message] 25133836) The system niiu generated this result transmit dain reference range : >=90 mL/min/1.7 3 m2. The reference r meredith was not used to interpret this result as normal/abnormal . eGFR If Am (test 35 See_Comment L [A utomated message] code = 60571254) The system which generated this result transmit dain reference range : >=90 mL/min/1.7 3 m2. The reference r meredith was not used to interpret this result as normal/abnormal . Lab Interpretation (test Abnormal code = 09765-1) [facility] [id number] 13:57:55 Test Item Value Reference Range Interpretation Comments Creatinine POC (test 2.4 mg/dL 0.6-1.3 H Physici an Notified code = 74681799) eGFR (test code = 30 See_Comment L [Automate d message] 41009794) The system niiu generated this result transmit dain reference range : >=90 mL/min/1.7 3 m2. The reference r meredith was not used to interpret this result as normal/abnormal . eGFR If Am (test 35 See_Comment L [A utomated message] code = 94576229) The system which generated this result transmit dain reference range : >=90 mL/min/1.7 3 m2. The reference r meredith was not used to interpret this result as normal/abnormal . Lab Interpretation (test Abnormal code = 17828-9) [facility] CREATININE POC docked [id number] 13:57:55 Test Item Value Reference Range Interpretation Comments Creatinine POC (test 2.4 mg/dL 0.6-1.3 H Physici an Notified code = 85311102) eGFR (test code = 30 See_Comment L [Automate d message] 41537531) The system niiu generated this result transmit dain reference range : >=90 mL/min/1.7 3 m2. The reference r meredith was not used to interpret this result as normal/abnormal . eGFR If Am (test 35 See_Comment L [A utomated message] code = 42731080) The system which generated this result transmit dain reference range : >=90 mL/min/1.7 3 m2. The reference r meredith was not used to interpret this result as normal/abnormal . Lab Interpretation (test Abnormal code = 54623-9) [facility] [id number] 13:57:55 Test Item Value Reference Range Interpretation Comments Creatinine POC (test 2.4 mg/dL 0.6-1.3 H Physici an Notified code = 52448535) eGFR If non- Am 30 See_Comment L [Aut omated message] (test code = 27051247) The s ystem which generated this result transmit dain reference range : >=90 mL/min/1.7 3 m2. The reference r meredith was not used to interpret this result as normal/abnormal . eGFR If Am (test 35 See_Comment L [A utomated message] code = 45221129) The system which generated this result transmit dain reference range : >=90 mL/min/1.7 3 m2. The reference r meredith was not used to interpret this result as normal/abnormal . Lab Interpretation (test Abnormal code = 22077-7) [facility] CREATININE POC docked [id number] 13:57:55 Test Item Value Reference Range Interpretation Comments Creatinine POC (test 2.4 mg/dL 0.6-1.3 H Physici an Notified code = 64974885) eGFR If non- Am 30 See_Comment L [Aut omated message] (test code = 27637760) The s ystem which generated this result transmit dain reference range : >=90 mL/min/1.7 3 m2. The reference r meredith was not used to interpret this result as normal/abnormal . eGFR If Am (test 35 See_Comment L [A utomated message] code = 06486302) The system which generated this result transmit dain reference range : >=90 mL/min/1.7 3 m2. The reference r meredith was not used to interpret this result as normal/abnormal . Lab Interpretation (test Abnormal code = 51956-0) [facility] CREATININE POC docked [id number] 13:57:55 Test Item Value Reference Range Interpretation Comments Creatinine POC (test 2.4 mg/dL 0.6-1.3 H Physici an Notified code = 00416699) eGFR If non- Am 30 See_Comment L [Aut omated message] (test code = 90502186) The s ystem which generated this result transmit dain reference range : >=90 mL/min/1.7 3 m2. The reference r meredith was not used to interpret this result as normal/abnormal . eGFR If Am (test 35 See_Comment L [A utomated message] code = 85313571) The system which generated this result transmit dain reference range : >=90 mL/min/1.7 3 m2. The reference r meredith was not used to interpret this result as normal/abnormal . Lab Interpretation (test Abnormal code = 58364-6) [facility] CREATININE POC docked [id number] 13:57:55 Test Item Value Reference Range Interpretation Comments Creatinine POC (test 2.4 mg/dL 0.6-1.3 H Physici an Notified code = 22481942) eGFR If non- Am 30 See_Comment L [Aut omated message] (test code = 53610433) The s ystem which generated this result transmit dain reference range : >=90 mL/min/1.7 3 m2. The reference r meredith was not used to interpret this result as normal/abnormal . eGFR If Am (test 35 See_Comment L [A utomated message] code = 78649159) The system which generated this result transmit dain reference range : >=90 mL/min/1.7 3 m2. The reference r meredith was not used to interpret this result as normal/abnormal . Lab Interpretation (test Abnormal code = 72673-7) [facility] CREATININE POC docked [id number] 13:57:55 Test Item Value Reference Range Interpretation Comments Creatinine POC (test 2.4 mg/dL 0.6-1.3 H Physici an Notified code = 19284616) eGFR If non- Am 30 See_Comment L [Aut omated message] (test code = 11576086) The s ystem which generated this result transmit dain reference range : >=90 mL/min/1.7 3 m2. The reference r meredith was not used to interpret this result as normal/abnormal . eGFR If Am (test 35 See_Comment L [A utomated message] code = 21714482) The system which generated this result transmit dain reference range : >=90 mL/min/1.7 3 m2. The reference r meredith was not used to interpret this result as normal/abnormal . Lab Interpretation (test Abnormal code = 49555-0) [facility] CREATININE POC docked [id number] 13:57:55 Test Item Value Reference Range Interpretation Comments Creatinine POC (test 2.4 mg/dL 0.6-1.3 H Physici an Notified code = 36013670) eGFR If non- Am 30 See_Comment L [Aut omated message] (test code = 97275367) The s ystem which generated this result transmit dain reference range : >=90 mL/min/1.7 3 m2. The reference r meredith was not used to interpret this result as normal/abnormal . eGFR If Am (test 35 See_Comment L [A utomated message] code = 02446239) The system which generated this result transmit dain reference range : >=90 mL/min/1.7 3 m2. The reference r meredith was not used to interpret this result as normal/abnormal . Lab Interpretation (test Abnormal code = 28186-8) [facility] CREATININE POC docked [id number] 13:57:55 Test Item Value Reference Range Interpretation Comments Creatinine POC (test 2.4 mg/dL 0.6-1.3 H Physici an Notified code = 73366680) eGFR If non- Am 30 See_Comment L [Aut omated message] (test code = 18194491) The s ystem which generated this result transmit dain reference range : >=90 mL/min/1.7 3 m2. The reference r meredith was not used to interpret this result as normal/abnormal . eGFR If Am (test 35 See_Comment L [A utomated message] code = 27098626) The system which generated this result transmit dain reference range : >=90 mL/min/1.7 3 m2. The reference r meredith was not used to interpret this result as normal/abnormal . Lab Interpretation (test Abnormal code = 45796-2) [facility] CREATININE POC docked [id number] 13:57:55 Test Item Value Reference Range Interpretation Comments Creatinine POC (test 2.4 mg/dL 0.6-1.3 H Physici an Notified code = 04739860) eGFR If non- Am 30 See_Comment L [Aut omated message] (test code = 68138367) The s ystem which generated this result transmit dain reference range : >=90 mL/min/1.7 3 m2. The reference r meredith was not used to interpret this result as normal/abnormal . eGFR If Am (test 35 See_Comment L [A utomated message] code = 94736693) The system which generated this result transmit dain reference range : >=90 mL/min/1.7 3 m2. The reference r meredith was not used to interpret this result as normal/abnormal . Lab Interpretation (test Abnormal code = 86378-9) [facility] [id number] 13:57:55 Test Item Value Reference Range Interpretation Comments Creatinine POC (test 2.4 mg/dL 0.6-1.3 H Physici an Notified code = 05686115) eGFR If non- Am 30 See_Comment L [Aut omated message] (test code = 24570104) The s ystem which generated this result transmit dain reference range : >=90 mL/min/1.7 3 m2. The reference r meredith was not used to interpret this result as normal/abnormal . eGFR If Am (test 35 See_Comment L [A utomated message] code = 71616536) The system which generated this result transmit dain reference range : >=90 mL/min/1.7 3 m2. The reference r meredith was not used to interpret this result as normal/abnormal . Lab Interpretation (test Abnormal code = 72908-0) [facility] POC docked [id number] 13:57:55 Test Item Value Reference Range Interpretation Comments Creatinine POC (test 2.4 mg/dL 0.6-1.3 H Physici an Notified code = 27851662) eGFR If non- Am 30 See_Comment L [Aut omated message] (test code = 50611936) The s ystem which generated this result transmit dain reference range : >=90 mL/min/1.7 3 m2. The reference r meredith was not used to interpret this result as normal/abnormal . eGFR If Am (test 35 See_Comment L [A utomated message] code = 42701388) The system which generated this result transmit dain reference range : >=90 mL/min/1.7 3 m2. The reference r meredith was not used to interpret this result as normal/abnormal . Lab Interpretation (test Abnormal code = 55935-5) [facility] [id number] 13:57:55 Test Item Value Reference Range Interpretation Comments Creatinine POC (test 2.4 mg/dL 0.6-1.3 H Physici an Notified code = 22814352) eGFR If non- Am 30 See_Comment L [Aut omated message] (test code = 15527561) The s ystem which generated this result transmit dain reference range : >=90 mL/min/1.7 3 m2. The reference r meredith was not used to interpret this result as normal/abnormal . eGFR If Am (test 35 See_Comment L [A utomated message] code = 07532855) The system which generated this result transmit dain reference range : >=90 mL/min/1.7 3 m2. The reference r meredith was not used to interpret this result as normal/abnormal . Lab Interpretation (test Abnormal code = 90496-2) [facility] CREATININE POC docked [id number] 13:57:55 Test Item Value Reference Range Interpretation Comments Creatinine POC (test 2.4 mg/dL 0.6-1.3 H Physici an Notified code = 61464951) eGFR If non- Am 30 See_Comment L [Aut omated message] (test code = 86208421) The s ystem which generated this result transmit dain reference range : >=90 mL/min/1.7 3 m2. The reference r meredith was not used to interpret this result as normal/abnormal . eGFR If Am (test 35 See_Comment L [A utomated message] code = 35138072) The system which generated this result transmit dain reference range : >=90 mL/min/1.7 3 m2. The reference r meredith was not used to interpret this result as normal/abnormal . Lab Interpretation (test Abnormal code = 74284-2) [facility] CREATININE POC docked [id number] 13:57:55 Test Item Value Reference Range Interpretation Comments Creatinine POC (test 2.4 mg/dL 0.6-1.3 H Physici an Notified code = 65832420) eGFR If non- Am 30 See_Comment L [Aut omated message] (test code = 35065132) The s ystem which generated this result transmit dain reference range : >=90 mL/min/1.7 3 m2. The reference r meredith was not used to interpret this result as normal/abnormal . eGFR If Am (test 35 See_Comment L [A utomated message] code = 03351859) The system which generated this result transmit dain reference range : >=90 mL/min/1.7 3 m2. The reference r meredith was not used to interpret this result as normal/abnormal . Lab Interpretation (test Abnormal code = 87606-3) [facility] [id number] 13:57:55 Test Item Value Reference Range Interpretation Comments Creatinine POC (test 2.4 mg/dL 0.6-1.3 H Physici an Notified code = 95543603) eGFR If non- Am 30 See_Comment L [Aut omated message] (test code = 67390446) The s ystem which generated this result transmit dain reference range : >=90 mL/min/1.7 3 m2. The reference r meredith was not used to interpret this result as normal/abnormal . eGFR If Am (test 35 See_Comment L [A utomated message] code = 18944800) The system which generated this result transmit dain reference range : >=90 mL/min/1.7 3 m2. The reference r meredith was not used to interpret this result as normal/abnormal . Lab Interpretation (test Abnormal code = 75881-7) [facility] CREATININE POC docked [id number] 13:57:55 Test Item Value Reference Range Interpretation Comments Creatinine POC (test 2.4 mg/dL 0.6-1.3 H Physici an Notified code = 98300737) eGFR If non- Am 30 See_Comment L [Aut omated message] (test code = 09253275) The s ystem which generated this result transmit dain reference range : >=90 mL/min/1.7 3 m2. The reference r meredith was not used to interpret this result as normal/abnormal . eGFR If Am (test 35 See_Comment L [A utomated message] code = 78707130) The system which generated this result transmit dain reference range : >=90 mL/min/1.7 3 m2. The reference r meredith was not used to interpret this result as normal/abnormal . Lab Interpretation (test Abnormal code = 52789-5) [facility] [id number] 13:57:55 Test Item Value Reference Range Interpretation Comments Creatinine POC (test 2.4 mg/dL 0.6-1.3 H Physici an Notified code = 39096739) eGFR (test code = 30 See_Comment L [Automate d message] 52571799) The system niiu generated this result transmit dain reference range : >=90 mL/min/1.7 3 m2. The reference r meredith was not used to interpret this result as normal/abnormal . eGFR If Am (test 35 See_Comment L [A utomated message] code = 53920628) The system which generated this result transmit dain reference range : >=90 mL/min/1.7 3 m2. The reference r meredith was not used to interpret this result as normal/abnormal . Lab Interpretation (test Abnormal code = 78934-7) [facility] CREATININE POC docked [id number] 13:57:55 Test Item Value Reference Range Interpretation Comments Creatinine POC (test 2.4 mg/dL 0.6-1.3 H Physici an Notified code = 29193441) eGFR (test code = 30 See_Comment L [Automate d message] 93708333) The system niiu generated this result transmit dain reference range : >=90 mL/min/1.7 3 m2. The reference r meredith was not used to interpret this result as normal/abnormal . eGFR If Am (test 35 See_Comment L [A utomated message] code = 34521133) The system which generated this result transmit dain reference range : >=90 mL/min/1.7 3 m2. The reference r meredith was not used to interpret this result as normal/abnormal . Lab Interpretation (test Abnormal code = 37570-0) [facility] BMP POC docked [id number] 13:48:46 Test Item Value Reference Range Interpretation Comments Sodium POC (test code = 126 mmol/L 136-145 L 42119616) Potassium POC (test code 4.4 mmol/L 3.5-5.1 = 13275050) Chloride POC (test code 100 mmol/L 98-107 = 45468864) TCO2 POC (test code = 17 mmol/L 21-32 L Physic rachel Notified 66354834) Urea Nitrogen POC (test 36 mg/dL 7-18 H code = 53968638) Glucose POC (test code = 114 mg/dL 74-106 H 54224431) Hemoglobin POC (test 11.9 g/dL 12-16 L code = 22978218) Hematocrit POC (test 35.0 % 37.0-47.0 L code = 36384804) Lab Interpretation (test Abnormal code = 02442-3) [facility] POC docked [id number] 13:48:46 Test Item Value Reference Range Interpretation Comments Sodium POC (test code = 126 mmol/L 136-145 L 50318522) Potassium POC (test code 4.4 mmol/L 3.5-5.1 = 50209081) Chloride POC (test code 100 mmol/L 98-107 = 73530618) TCO2 POC (test code = 17 mmol/L 21-32 L Physic rachel Notified 36056289) Urea Nitrogen POC (test 36 mg/dL 7-18 H code = 65538856) Glucose POC (test code = 114 mg/dL 74-106 H 82736729) Hemoglobin POC (test 11.9 g/dL 12-16 L code = 09917014) Hematocrit POC (test 35.0 % 37.0-47.0 L code = 55564408) Lab Interpretation (test Abnormal code = 51563-0) [facility] POC docked [id number] 13:48:46 Test Item Value Reference Range Interpretation Comments Sodium POC (test code = 126 mmol/L 136-145 L 61009478) Potassium POC (test code 4.4 mmol/L 3.5-5.1 = 54680632) Chloride POC (test code 100 mmol/L 98-107 = 80602824) TCO2 POC (test code = 17 mmol/L 21-32 L Physic rachel Notified 55310796) Urea Nitrogen POC (test 36 mg/dL 7-18 H code = 55951883) Glucose POC (test code = 114 mg/dL 74-106 H 69069346) Hemoglobin POC (test 11.9 g/dL 12-16 L code = 54932754) Hematocrit POC (test 35.0 % 37.0-47.0 L code = 30800748) Lab Interpretation (test Abnormal code = 54596-2) [facility] POC docked [id number] 13:48:46 Test Item Value Reference Range Interpretation Comments Sodium POC (test code = 126 mmol/L 136-145 L 77443214) Potassium POC (test code 4.4 mmol/L 3.5-5.1 = 70485997) Chloride POC (test code 100 mmol/L 98-107 = 57358665) TCO2 POC (test code = 17 mmol/L 21-32 L Physic rachel Notified 39084512) Urea Nitrogen POC (test 36 mg/dL 7-18 H code = 91748088) Glucose POC (test code = 114 mg/dL 74-106 H 00335582) Hemoglobin POC (test 11.9 g/dL 12-16 L code = 11456235) Hematocrit POC (test 35.0 % 37.0-47.0 L code = 86944678) Lab Interpretation (test Abnormal code = 15760-4) [facility] POC docked [id number] 13:48:46 Test Item Value Reference Range Interpretation Comments Sodium POC (test code = 126 mmol/L 136-145 L 33367112) Potassium POC (test code 4.4 mmol/L 3.5-5.1 = 28680045) Chloride POC (test code 100 mmol/L 98-107 = 75725491) TCO2 POC (test code = 17 mmol/L 21-32 L Physic rachel Notified 92699824) Urea Nitrogen POC (test 36 mg/dL 7-18 H code = 93390205) Glucose POC (test code = 114 mg/dL 74-106 H 46778344) Hemoglobin POC (test 11.9 g/dL 12-16 L code = 90363255) Hematocrit POC (test 35.0 % 37.0-47.0 L code = 30051388) Lab Interpretation (test Abnormal code = 19893-3) [facility] POC docked [id number] 13:48:46 Test Item Value Reference Range Interpretation Comments Sodium POC (test code = 126 mmol/L 136-145 L 03944390) Potassium POC (test code 4.4 mmol/L 3.5-5.1 = 44340321) Chloride POC (test code 100 mmol/L 98-107 = 97329813) TCO2 POC (test code = 17 mmol/L 21-32 L Physic rachel Notified 91361950) Urea Nitrogen POC (test 36 mg/dL 7-18 H code = 51519851) Glucose POC (test code = 114 mg/dL 74-106 H 46958079) Hemoglobin POC (test 11.9 g/dL 12-16 L code = 81343097) Hematocrit POC (test 35.0 % 37.0-47.0 L code = 05242549) Lab Interpretation (test Abnormal code = 44923-7) [facility] POC docked [id number] 13:48:46 Test Item Value Reference Range Interpretation Comments Sodium POC (test code = 126 mmol/L 136-145 L 67113558) Potassium POC (test code 4.4 mmol/L 3.5-5.1 = 33684786) Chloride POC (test code 100 mmol/L 98-107 = 83361983) TCO2 POC (test code = 17 mmol/L 21-32 L Physic rachel Notified 42005837) Urea Nitrogen POC (test 36 mg/dL 7-18 H code = 73462950) Glucose POC (test code = 114 mg/dL 74-106 H 41142423) Hemoglobin POC (test 11.9 g/dL 12-16 L code = 11319079) Hematocrit POC (test 35.0 % 37.0-47.0 L code = 78341017) Lab Interpretation (test Abnormal code = 46878-5) [facility] POC docked [id number] 13:48:46 Test Item Value Reference Range Interpretation Comments Sodium POC (test code = 126 mmol/L 136-145 L 41664582) Potassium POC (test code 4.4 mmol/L 3.5-5.1 = 87529617) Chloride POC (test code 100 mmol/L 98-107 = 57223482) TCO2 POC (test code = 17 mmol/L 21-32 L Physic rachel Notified 15585837) Urea Nitrogen POC (test 36 mg/dL 7-18 H code = 41061090) Glucose POC (test code = 114 mg/dL 74-106 H 82225495) Hemoglobin POC (test 11.9 g/dL 12-16 L code = 84475098) Hematocrit POC (test 35.0 % 37.0-47.0 L code = 78075813) Lab Interpretation (test Abnormal code = 31827-6) [facility] POC docked [id number] 13:48:46 Test Item Value Reference Range Interpretation Comments Sodium POC (test code = 126 mmol/L 136-145 L 02764539) Potassium POC (test code 4.4 mmol/L 3.5-5.1 = 66200227) Chloride POC (test code 100 mmol/L 98-107 = 92935636) TCO2 POC (test code = 17 mmol/L 21-32 L Physic rachel Notified 58022176) Urea Nitrogen POC (test 36 mg/dL 7-18 H code = 23443300) Glucose POC (test code = 114 mg/dL 74-106 H 78825934) Hemoglobin POC (test 11.9 g/dL 12-16 L code = 90858928) Hematocrit POC (test 35.0 % 37.0-47.0 L code = 13450852) Lab Interpretation (test Abnormal code = 01149-3) [facility] POC docked [id number] 13:48:46 Test Item Value Reference Range Interpretation Comments Sodium POC (test code = 126 mmol/L 136-145 L 65602096) Potassium POC (test code 4.4 mmol/L 3.5-5.1 = 35983491) Chloride POC (test code 100 mmol/L 98-107 = 70179093) TCO2 POC (test code = 17 mmol/L 21-32 L Physic rachel Notified 71411834) Urea Nitrogen POC (test 36 mg/dL 7-18 H code = 17909117) Glucose POC (test code = 114 mg/dL 74-106 H 03775361) Hemoglobin POC (test 11.9 g/dL 12-16 L code = 31276918) Hematocrit POC (test 35.0 % 37.0-47.0 L code = 20693328) Lab Interpretation (test Abnormal code = 40424-4) [facility] POC docked [id number] 13:48:46 Test Item Value Reference Range Interpretation Comments Sodium POC (test code = 126 mmol/L 136-145 L 20857578) Potassium POC (test code 4.4 mmol/L 3.5-5.1 = 76892426) Chloride POC (test code 100 mmol/L 98-107 = 76698344) TCO2 POC (test code = 17 mmol/L 21-32 L Physic rachel Notified 97490595) Urea Nitrogen POC (test 36 mg/dL 7-18 H code = 69191332) Glucose POC (test code = 114 mg/dL 74-106 H 96862630) Hemoglobin POC (test 11.9 g/dL 12-16 L code = 00763036) Hematocrit POC (test 35.0 % 37.0-47.0 L code = 21343614) Lab Interpretation (test Abnormal code = 47811-8) [facility] POC docked [id number] 13:48:46 Test Item Value Reference Range Interpretation Comments Sodium POC (test code = 126 mmol/L 136-145 L 29416411) Potassium POC (test code 4.4 mmol/L 3.5-5.1 = 74788548) Chloride POC (test code 100 mmol/L 98-107 = 31582079) TCO2 POC (test code = 17 mmol/L 21-32 L Physic rachel Notified 49781076) Urea Nitrogen POC (test 36 mg/dL 7-18 H code = 16548585) Glucose POC (test code = 114 mg/dL 74-106 H 14289759) Hemoglobin POC (test 11.9 g/dL 12-16 L code = 48648539) Hematocrit POC (test 35.0 % 37.0-47.0 L code = 79067699) Lab Interpretation (test Abnormal code = 65632-1) [facility] POC docked [id number] 13:48:46 Test Item Value Reference Range Interpretation Comments Sodium POC (test code = 126 mmol/L 136-145 L 80253547) Potassium POC (test code 4.4 mmol/L 3.5-5.1 = 56325582) Chloride POC (test code 100 mmol/L 98-107 = 98011153) TCO2 POC (test code = 17 mmol/L 21-32 L Physic rachel Notified 67350225) Urea Nitrogen POC (test 36 mg/dL 7-18 H code = 14344798) Glucose POC (test code = 114 mg/dL 74-106 H 40963641) Hemoglobin POC (test 11.9 g/dL 12-16 L code = 51346956) Hematocrit POC (test 35.0 % 37.0-47.0 L code = 51080551) Lab Interpretation (test Abnormal code = 18641-6) [facility] POC docked [id number] 13:48:46 Test Item Value Reference Range Interpretation Comments Sodium POC (test code = 126 mmol/L 136-145 L 16897987) Potassium POC (test code 4.4 mmol/L 3.5-5.1 = 85959246) Chloride POC (test code 100 mmol/L 98-107 = 34731695) TCO2 POC (test code = 17 mmol/L 21-32 L Physic rachel Notified 43909456) Urea Nitrogen POC (test 36 mg/dL 7-18 H code = 89501101) Glucose POC (test code = 114 mg/dL 74-106 H 06168435) Hemoglobin POC (test 11.9 g/dL 12-16 L code = 54730653) Hematocrit POC (test 35.0 % 37.0-47.0 L code = 07988854) Lab Interpretation (test Abnormal code = 19989-3) [facility] POC docked [id number] 13:48:46 Test Item Value Reference Range Interpretation Comments Sodium POC (test code = 126 mmol/L 136-145 L 54544007) Potassium POC (test code 4.4 mmol/L 3.5-5.1 = 66472300) Chloride POC (test code 100 mmol/L 98-107 = 63365384) TCO2 POC (test code = 17 mmol/L 21-32 L Physic rachel Notified 40531557) Urea Nitrogen POC (test 36 mg/dL 7-18 H code = 07817013) Glucose POC (test code = 114 mg/dL 74-106 H 12740105) Hemoglobin POC (test 11.9 g/dL 12-16 L code = 83629441) Hematocrit POC (test 35.0 % 37.0-47.0 L code = 07491148) Lab Interpretation (test Abnormal code = 11913-8) [facility] POC docked [id number] 13:48:46 Test Item Value Reference Range Interpretation Comments Sodium POC (test code = 126 mmol/L 136-145 L 38079998) Potassium POC (test code 4.4 mmol/L 3.5-5.1 = 71963430) Chloride POC (test code 100 mmol/L 98-107 = 08591251) TCO2 POC (test code = 17 mmol/L 21-32 L Physic rachel Notified 16643021) Urea Nitrogen POC (test 36 mg/dL 7-18 H code = 05749329) Glucose POC (test code = 114 mg/dL 74-106 H 24312958) Hemoglobin POC (test 11.9 g/dL 12-16 L code = 52860340) Hematocrit POC (test 35.0 % 37.0-47.0 L code = 16753474) Lab Interpretation (test Abnormal code = 43456-3) [facility] POC docked [id number] 13:48:46 Test Item Value Reference Range Interpretation Comments Sodium POC (test code = 126 mmol/L 136-145 L 02885183) Potassium POC (test code 4.4 mmol/L 3.5-5.1 = 03513003) Chloride POC (test code 100 mmol/L 98-107 = 59905360) TCO2 POC (test code = 17 mmol/L 21-32 L Physic rachel Notified 73085678) Urea Nitrogen POC (test 36 mg/dL 7-18 H code = 98453771) Glucose POC (test code = 114 mg/dL 74-106 H 36463264) Hemoglobin POC (test 11.9 g/dL 12-16 L code = 92081102) Hematocrit POC (test 35.0 % 37.0-47.0 L code = 51704676) Lab Interpretation (test Abnormal code = 18007-6) [facility] POC docked [id number] 13:48:46 Test Item Value Reference Range Interpretation Comments Sodium POC (test code = 126 mmol/L 136-145 L 13354492) Potassium POC (test code 4.4 mmol/L 3.5-5.1 = 26152873) Chloride POC (test code 100 mmol/L 98-107 = 36059891) TCO2 POC (test code = 17 mmol/L 21-32 L Physic rachel Notified 68088093) Urea Nitrogen POC (test 36 mg/dL 7-18 H code = 89122387) Glucose POC (test code = 114 mg/dL 74-106 H 97006803) Hemoglobin POC (test 11.9 g/dL 12-16 L code = 13284666) Hematocrit POC (test 35.0 % 37.0-47.0 L code = 52555516) Lab Interpretation (test Abnormal code = 20742-1) [facility] POC docked [id number] 13:48:46 Test Item Value Reference Range Interpretation Comments Sodium POC (test code = 126 mmol/L 136-145 L 05120115) Potassium POC (test code 4.4 mmol/L 3.5-5.1 = 34050810) Chloride POC (test code 100 mmol/L 98-107 = 99202578) TCO2 POC (test code = 17 mmol/L 21-32 L Physic rachel Notified 91730396) Urea Nitrogen POC (test 36 mg/dL 7-18 H code = 56539266) Glucose POC (test code = 114 mg/dL 74-106 H 14991316) Hemoglobin POC (test 11.9 g/dL 12-16 L code = 74476340) Hematocrit POC (test 35.0 % 37.0-47.0 L code = 98103954) Lab Interpretation (test Abnormal code = 30309-3) [facility] POC docked [id number] 13:48:46 Test Item Value Reference Range Interpretation Comments Sodium POC (test code = 126 mmol/L 136-145 L 25722016) Potassium POC (test code 4.4 mmol/L 3.5-5.1 = 41394845) Chloride POC (test code 100 mmol/L 98-107 = 88942310) TCO2 POC (test code = 17 mmol/L 21-32 L Physic rachel Notified 23879525) Urea Nitrogen POC (test 36 mg/dL 7-18 H code = 28120373) Glucose POC (test code = 114 mg/dL 74-106 H 68197326) Hemoglobin POC (test 11.9 g/dL 12-16 L code = 17116132) Hematocrit POC (test 35.0 % 37.0-47.0 L code = 88078243) Lab Interpretation (test Abnormal code = 07343-8) [facility] POC docked [id number] 13:48:46 Test Item Value Reference Range Interpretation Comments Sodium POC (test code = 126 mmol/L 136-145 L 09151439) Potassium POC (test code 4.4 mmol/L 3.5-5.1 = 24869173) Chloride POC (test code 100 mmol/L 98-107 = 28580095) TCO2 POC (test code = 17 mmol/L 21-32 L Physic rachel Notified 24663753) Urea Nitrogen POC (test 36 mg/dL 7-18 H code = 19075091) Glucose POC (test code = 114 mg/dL 74-106 H 38921644) Hemoglobin POC (test 11.9 g/dL 12-16 L code = 96669488) Hematocrit POC (test 35.0 % 37.0-47.0 L code = 65401203) Lab Interpretation (test Abnormal code = 69333-3) [facility] POC docked [id number] 13:48:46 Test Item Value Reference Range Interpretation Comments Sodium POC (test code = 126 mmol/L 136-145 L 13867823) Potassium POC (test code 4.4 mmol/L 3.5-5.1 = 29948339) Chloride POC (test code 100 mmol/L 98-107 = 52687495) TCO2 POC (test code = 17 mmol/L 21-32 L Physic rachel Notified 73089997) Urea Nitrogen POC (test 36 mg/dL 7-18 H code = 78587226) Glucose POC (test code = 114 mg/dL 74-106 H 09399754) Hemoglobin POC (test 11.9 g/dL 12-16 L code = 60296415) Hematocrit POC (test 35.0 % 37.0-47.0 L code = 04773650) Lab Interpretation (test Abnormal code = 43534-1) [facility] POC docked [id number] 13:48:46 Test Item Value Reference Range Interpretation Comments Sodium POC (test code = 126 mmol/L 136-145 L 89605562) Potassium POC (test code 4.4 mmol/L 3.5-5.1 = 84227571) Chloride POC (test code 100 mmol/L 98-107 = 89923701) TCO2 POC (test code = 17 mmol/L 21-32 L Physic rachel Notified 32020413) Urea Nitrogen POC (test 36 mg/dL 7-18 H code = 16241345) Glucose POC (test code = 114 mg/dL 74-106 H 46263806) Hemoglobin POC (test 11.9 g/dL 12-16 L code = 73695058) Hematocrit POC (test 35.0 % 37.0-47.0 L code = 43900378) Lab Interpretation (test Abnormal code = 83718-4) Lynne CwltsxPPIN-UaL-4 ORF1ab Resp Ql OLENA+[id number] 20:25:16 Test Item Value Reference Range Interpretation Comments Hospitalized? (test No code = 16374-3) ICU? (test code = No 87143-8) Symptomatic as No defined by CDC? (test code = 40323-9) Employed in No Healthcare? (test code = 39067-4) Resident in a No congregate care setting (including nursing homes, residential care for people with intellectual and developmental disabilities, psychiatric treatment facilities, group homes, board and care homes, homeless residential, foster care or other): (test code = 60105-1) SARS-CoV-2 ORF1ab NOT DETECTED Not Detected INTERPRETA TION: No Resp Ql OLENA+probe detectable levels of (test code = SARS-CoV-2 88572-1) Coronavirus (COVID-19) were present in this patient's [...] SARS-CoV-2 mole cular diagnostic assa y utilizes Private Client Advisor Mediated Amplification ( TMA) technology to r apidly detect the SARS -CoV-2 (COVID-19) viru s from respiratory adriana ples. In accordance with\\XC2A0\\the FDA's guidance docume nt "Policy for Diagnostic Test s for Coronavirus Disease-2019 du ring the Public Heal Emergency", thi s test was developed, and its performance characteristics were verified by the [facility] molecular diagn ostics laboratory and is authorized for clinical diagno stic use. \\XC2A0\\[facility] s laboratory is certified under the Clinical Labora tory Improvement Amendments (CLI A) as qualified to pe rform high complexity clinical labora tory testing. [facility] POC docked [id number] 11:16:15 Test Item Value Reference Range Interpretation Comments pH, Pankaj POC (test code 7.32 7.33-7.43 L = 25976066) pCO2,Pankaj POC (test code 31.0 See_Comment L [Au tomated = 57317044) message] The sy stem which generated this result transmitted reference range : 38 - 50 mmHg. The reference range was not used to interpret this result as normal/abnormal . PO2, Venous POC (BKR) 44 See_Comment L [Auto mated (test code = 88699443) messa ge] The system which generated this result transmitted reference range : 50 - 75 mm Hg. The reference range was not used to interpret this result as normal/abnormal . Ionized Calcium POC 1.24 mmol/L 1.15-1.29 (test code = 38923771) HCO3, Pankaj POC (test 16 mmol/L 22-26 L code = 22530656) TCO2 POC (test code = 17 mmol/L 21-32 L 97159108) Base Deficit, Pankaj POC -9 (test code = 77645214) Sample Type (test code IVEN Physi erik Notified = 88967428) % Sat, Pankaj POC (test 77 % code = 27262788) Lab Interpretation Abnormal (test code = 78878-2) [facility] POC docked [id number] 11:16:15 Test Item Value Reference Range Interpretation Comments pH, Pankaj POC (test code 7.32 7.33-7.43 L = 54333451) pCO2,Pankaj POC (test code 31.0 See_Comment L [Au tomated = 42810511) message] The sy stem which generated this result transmitted reference range : 38 - 50 mmHg. The reference range was not used to interpret this result as normal/abnormal . PO2, Venous POC (BKR) 44 See_Comment L [Auto mated (test code = 05898721) messa ge] The system which generated this result transmitted reference range : 50 - 75 mm Hg. The reference range was not used to interpret this result as normal/abnormal . Ionized Calcium POC 1.24 mmol/L 1.15-1.29 (test code = 85569541) HCO3, Pankaj POC (test 16 mmol/L 22-26 L code = 64093534) TCO2 POC (test code = 17 mmol/L 21-32 L 80508044) Base Deficit, Pankaj POC -9 (test code = 62781749) Sample Type (test code IVJESSICA Physi erik Notified = 74955869) % Sat, Pankaj POC (test 77 % code = 60121864) Lab Interpretation Abnormal (test code = 13004-8) [facility] POC docked [id number] 11:16:15 Test Item Value Reference Range Interpretation Comments pH, Pankaj POC (test code 7.32 7.33-7.43 L = 37624996) pCO2,Pankaj POC (test code 31.0 See_Comment L [Au tomated = 58446184) message] The sy stem which generated this result transmitted reference range : 38 - 50 mmHg. The reference range was not used to interpret this result as normal/abnormal . PO2, Venous POC (BKR) 44 See_Comment L [Auto mated (test code = 17752706) [employer]] The system which generated this result transmitted reference range : 50 - 75 mm Hg. The reference range was not used to interpret this result as normal/abnormal . Ionized Calcium POC 1.24 mmol/L 1.15-1.29 (test code = 42002130) HCO3, Pankaj POC (test 16 mmol/L 22-26 L code = 28293072) TCO2 POC (test code = 17 mmol/L 21-32 L 62827492) Base Deficit, Pankaj POC -9 (test code = 63823115) Sample Type (test code IVEN Physi erik Notified = 32071555) % Sat, Pankaj POC (test 77 % code = 48745036) Lab Interpretation Abnormal (test code = 44766-8) [facility] [id number] 11:16:15 Test Item Value Reference Range Interpretation Comments pH, Pankaj POC (test code 7.32 7.33-7.43 L = 78505561) pCO2,Pankaj POC (test code 31.0 See_Comment L [Au tomated = 93976847) message] The sy stem which generated this result transmitted reference range : 38 - 50 mmHg. The reference range was not used to interpret this result as normal/abnormal . PO2, Venous POC (BKR) 44 See_Comment L [Auto mated (test code = 02891457) messa ge] The system which generated this result transmitted reference range : 50 - 75 mm Hg. The reference range was not used to interpret this result as normal/abnormal . Ionized Calcium POC 1.24 mmol/L 1.15-1.29 (test code = 81418853) HCO3, Pankaj POC (test 16 mmol/L 22-26 L code = 88774730) TCO2 POC (test code = 17 mmol/L 21-32 L 86066870) Base Deficit, Pankaj POC -9 (test code = 87632829) Sample Type (test code IVEN Physi erik Notified = 17333409) % Sat, Pankaj POC (test 77 % code = 53367445) Lab Interpretation Abnormal (test code = 52623-7) [facility] POC docked [id number] 11:16:15 Test Item Value Reference Range Interpretation Comments pH, Pankaj POC (test code 7.32 7.33-7.43 L = 59715222) pCO2,Pankaj POC (test code 31.0 See_Comment L [Au tomated = 89878480) message] The sy stem which generated this result transmitted reference range : 38 - 50 mmHg. The reference range was not used to interpret this result as normal/abnormal . PO2, Venous POC (BKR) 44 See_Comment L [Auto mated (test code = 20181373) messa ge] The system which generated this result transmitted reference range : 50 - 75 mm Hg. The reference range was not used to interpret this result as normal/abnormal . Ionized Calcium POC 1.24 mmol/L 1.15-1.29 (test code = 42791041) HCO3, Pankaj POC (test 16 mmol/L 22-26 L code = 63600540) TCO2 POC (test code = 17 mmol/L 21-32 L 14892584) Base Deficit, Pankaj POC -9 (test code = 30376016) Sample Type (test code IVEN Physi erik Notified = 27685544) % Sat, Pankaj POC (test 77 % code = 73131984) Lab Interpretation Abnormal (test code = 58214-2) [facility] POC docked [id number] 11:16:15 Test Item Value Reference Range Interpretation Comments pH, Pankaj POC (test code 7.32 7.33-7.43 L = 50973634) pCO2,Pankaj POC (test code 31.0 See_Comment L [Au tomated = 10233806) message] The sy stem which generated this result transmitted reference range : 38 - 50 mmHg. The reference range was not used to interpret this result as normal/abnormal . PO2, Venous POC (BKR) 44 See_Comment L [Auto mated (test code = 56034615) messa ge] The system which generated this result transmitted reference range : 50 - 75 mm Hg. The reference range was not used to interpret this result as normal/abnormal . Ionized Calcium POC 1.24 mmol/L 1.15-1.29 (test code = 23860409) HCO3, Pankaj POC (test 16 mmol/L 22-26 L code = 48840971) TCO2 POC (test code = 17 mmol/L 21-32 L 86924490) Base Deficit, Pankaj POC -9 (test code = 73298198) Sample Type (test code IVJESSICA Physi erik Notified = 51637103) % Sat, Pankaj POC (test 77 % code = 75177539) Lab Interpretation Abnormal (test code = 60893-5) Located within [facility] POC docked [id number] 11:16:15 Test Item Value Reference Range Interpretation Comments pH, Pankaj POC (test code 7.32 7.33-7.43 L = 14078252) pCO2,Pankaj POC (test code 31.0 See_Comment L [Au tomated = 05478981) message] The sy stem which generated this result transmitted reference range : 38 - 50 mmHg. The reference range was not used to interpret this result as normal/abnormal . PO2, Venous POC (BKR) 44 See_Comment L [Auto mated (test code = 29129943) messa ge] The system which generated this result transmitted reference range : 50 - 75 mm Hg. The reference range was not used to interpret this result as normal/abnormal . Ionized Calcium POC 1.24 mmol/L 1.15-1.29 (test code = 93946086) HCO3, Pankaj POC (test 16 mmol/L 22-26 L code = 14539890) TCO2 POC (test code = 17 mmol/L 21-32 L 90754317) Base Deficit, Pankaj POC -9 (test code = 63069635) Sample Type (test code STEPAN valencia Notified = 72529655) % Sat, Pankaj POC (test 77 % code = 52381753) Lab Interpretation Abnormal (test code = 22354-1) [facility] POC docked [id number] 11:16:15 Test Item Value Reference Range Interpretation Comments pH, Pankaj POC (test code 7.32 7.33-7.43 L = 97324310) pCO2,Pankaj POC (test code 31.0 See_Comment L [Au tomated = 41746746) message] The sy stem which generated this result transmitted reference range : 38 - 50 mmHg. The reference range was not used to interpret this result as normal/abnormal . PO2, Venous POC (BKR) 44 See_Comment L [Auto mated (test code = 25911676) [email or web address] ge] The system which generated this result transmitted reference range : 50 - 75 mm Hg. The reference range was not used to interpret this result as normal/abnormal . Ionized Calcium POC 1.24 mmol/L 1.15-1.29 (test code = 98597640) HCO3, Pankaj POC (test 16 mmol/L 22-26 L code = 88386892) TCO2 POC (test code = 17 mmol/L 21-32 L 90774951) Base Deficit, Pankaj POC -9 (test code = 18654406) Sample Type (test code STEPAN valencia Notified = 44289111) % Sat, Pankaj POC (test 77 % code = 46298824) Lab Interpretation Abnormal (test code = 31823-9) [facility] POC docked [id number] 11:16:15 Test Item Value Reference Range Interpretation Comments pH, Pankaj POC (test code 7.32 7.33-7.43 L = 61478979) pCO2,Pankaj POC (test code 31.0 See_Comment L [Au tomated = [id number]) message] The sy stem which generated this result transmitted reference range : 38 - 50 mmHg. The reference range was not used to interpret this result as normal/abnormal . PO2, Venous POC (BKR) 44 See_Comment L [Auto mated (test code = 78230648) TranslationExchange] The system which generated this result transmitted reference range : 50 - 75 mm Hg. The reference range was not used to interpret this result as normal/abnormal . Ionized Calcium POC 1.24 mmol/L 1.15-1.29 (test code = 88122413) HCO3, Pankaj POC (test 16 mmol/L 22-26 L code = [id number]) TCO2 POC (test code = 17 mmol/L 21-32 L 03702516) Base Deficit, Pankaj POC -9 (test code = 50084024) Sample Type (test code IVJESSICA Physi erik Notified = 80815263) % Sat, Pankaj POC (test 77 % code = 74446905) Lab Interpretation Abnormal (test code = 56569-1) [facility] POC docked [id number] 11:16:15 Test Item Value Reference Range Interpretation Comments pH, Pankaj POC (test code 7.32 7.33-7.43 L = 29004344) pCO2,Pankaj POC (test code 31.0 See_Comment L [Au tomated = 50647533) message] The sy stem which generated this result transmitted reference range : 38 - 50 mmHg. The reference range was not used to interpret this result as normal/abnormal . PO2, Venous POC (BKR) 44 See_Comment L [Auto mated (test code = 82927932) [employer]] The system which generated this result transmitted reference range : 50 - 75 mm Hg. The reference range was not used to interpret this result as normal/abnormal . Ionized Calcium POC 1.24 mmol/L 1.15-1.29 (test code = 71540128) HCO3, Pankaj POC (test 16 mmol/L 22-26 L code = 59691904) TCO2 POC (test code = 17 mmol/L 21-32 L 78049967) Base Deficit, Pankaj POC -9 (test code = 04321126) Sample Type (test code IVJESSICA Physi erik Notified = 67892577) % Sat, Pankaj POC (test 77 % code = 19417559) Lab Interpretation Abnormal (test code = 99118-9) [facility] POC docked [id number] 11:16:15 Test Item Value Reference Range Interpretation Comments pH, Pankaj POC (test code 7.32 7.33-7.43 L = 07967696) pCO2,Pankaj POC (test code 31.0 See_Comment L [Au tomated = 93667046) message] The sy stem which generated this result transmitted reference range : 38 - 50 mmHg. The reference range was not used to interpret this result as normal/abnormal . PO2, Venous POC (BKR) 44 See_Comment L [Auto mated (test code = 30421746) messa ge] The system which generated this result transmitted reference range : 50 - 75 mm Hg. The reference range was not used to interpret this result as normal/abnormal . Ionized Calcium POC 1.24 mmol/L 1.15-1.29 (test code = 09757304) HCO3, Pankaj POC (test 16 mmol/L 22-26 L code = 16517090) TCO2 POC (test code = 17 mmol/L 21-32 L 89987596) Base Deficit, Pankaj POC -9 (test code = 84624170) Sample Type (test code IVJESSICA Physi erik Notified = 13456104) % Sat, Pankaj POC (test 77 % code = 30820610) Lab Interpretation Abnormal (test code = 23830-3) [facility] POC docked [id number] 11:16:15 Test Item Value Reference Range Interpretation Comments pH, Pankaj POC (test code 7.32 7.33-7.43 L = 42526551) pCO2,Pankaj POC (test code 31.0 See_Comment L [Au tomated = 10568235) message] The sy stem which generated this result transmitted reference range : 38 - 50 mmHg. The reference range was not used to interpret this result as normal/abnormal . PO2, Venous POC (BKR) 44 See_Comment L [Auto mated (test code = 37938436) messa ge] The system which generated this result transmitted reference range : 50 - 75 mm Hg. The reference range was not used to interpret this result as normal/abnormal . Ionized Calcium POC 1.24 mmol/L 1.15-1.29 (test code = 23689556) HCO3, Pankaj POC (test 16 mmol/L 22-26 L code = 46626692) TCO2 POC (test code = 17 mmol/L 21-32 L 35089768) Base Deficit, Pankaj POC -9 (test code = 21067812) Sample Type (test code STEPAN valencia Notified = 64069466) % Sat, Pankaj POC (test 77 % code = 28974846) Lab Interpretation Abnormal (test code = 83824-5) [facility] POC docked [id number] 11:16:15 Test Item Value Reference Range Interpretation Comments pH, Pankaj POC (test code 7.32 7.33-7.43 L = 62193080) pCO2,Pankaj POC (test code 31.0 See_Comment L [Au tomated = 18293608) message] The sy stem which generated this result transmitted reference range : 38 - 50 mmHg. The reference range was not used to interpret this result as normal/abnormal . PO2, Venous POC (BKR) 44 See_Comment L [Auto mated (test code = 30904967) messa ge] The system which generated this result transmitted reference range : 50 - 75 mm Hg. The reference range was not used to interpret this result as normal/abnormal . Ionized Calcium POC 1.24 mmol/L 1.15-1.29 (test code = 67412926) HCO3, Pankaj POC (test 16 mmol/L 22-26 L code = 97695301) TCO2 POC (test code = 17 mmol/L 21-32 L 40123855) Base Deficit, Pankaj POC -9 (test code = 34835017) Sample Type (test code STEPAN valencia Notified = 41648953) % Sat, Pankaj POC (test 77 % code = 95940933) Lab Interpretation Abnormal (test code = 32252-1) Located within [facility] POC docked [id number] 11:16:15 Test Item Value Reference Range Interpretation Comments pH, Pankaj POC (test code 7.32 7.33-7.43 L = 62308801) pCO2,Pankaj POC (test code 31.0 See_Comment L [Au tomated = 79004856) message] The sy stem which generated this result transmitted reference range : 38 - 50 mmHg. The reference range was not used to interpret this result as normal/abnormal . PO2, Venous POC (BKR) 44 See_Comment L [Auto mated (test code = 41988848) messa ge] The system which generated this result transmitted reference range : 50 - 75 mm Hg. The reference range was not used to interpret this result as normal/abnormal . Ionized Calcium POC 1.24 mmol/L 1.15-1.29 (test code = 77532114) HCO3, Pankaj POC (test 16 mmol/L 22-26 L code = 90474149) TCO2 POC (test code = 17 mmol/L 21-32 L 46845951) Base Deficit, Pankaj POC -9 (test code = 84532291) Sample Type (test code IVJESSICA Physi erik Notified = 45562609) % Sat, Pankaj POC (test 77 % code = 70135566) Lab Interpretation Abnormal (test code = 26156-3) [facility] POC docked [id number] 11:16:15 Test Item Value Reference Range Interpretation Comments pH, Pankaj POC (test code 7.32 7.33-7.43 L = 20557158) pCO2,Pankaj POC (test code 31.0 See_Comment L [Au tomated = 38106105) message] The sy stem which generated this result transmitted reference range : 38 - 50 mmHg. The reference range was not used to interpret this result as normal/abnormal . PO2, Venous POC (BKR) 44 See_Comment L [Auto mated (test code = 07487745) [email or web address] ge] The system which generated this result transmitted reference range : 50 - 75 mm Hg. The reference range was not used to interpret this result as normal/abnormal . Ionized Calcium POC 1.24 mmol/L 1.15-1.29 (test code = 97599264) HCO3, Pankaj POC (test 16 mmol/L 22-26 L code = 30653046) TCO2 POC (test code = 17 mmol/L 21-32 L 60325177) Base Deficit, Pankaj POC -9 (test code = 19123801) Sample Type (test code IVJESSICA Physi erik Notified = 44505430) % Sat, Pankaj POC (test 77 % code = 48667862) Lab Interpretation Abnormal (test code = 97236-5) [facility] POC docked [id number] 11:16:15 Test Item Value Reference Range Interpretation Comments pH, Pankaj POC (test code 7.32 7.33-7.43 L = 27149296) pCO2,Pankaj POC (test code 31.0 See_Comment L [Au tomated = 94275046) message] The sy stem which generated this result transmitted reference range : 38 - 50 mmHg. The reference range was not used to interpret this result as normal/abnormal . PO2, Venous POC (BKR) 44 See_Comment L [Auto mated (test code = 49747733) dakicka ge] The system which generated this result transmitted reference range : 50 - 75 mm Hg. The reference range was not used to interpret this result as normal/abnormal . Ionized Calcium POC 1.24 mmol/L 1.15-1.29 (test code = 82831780) HCO3, Pankaj POC (test 16 mmol/L 22-26 L code = 70333945) TCO2 POC (test code = 17 mmol/L 21-32 L 56769158) Base Deficit, Pankaj POC -9 (test code = 53885993) Sample Type (test code IVEN Physi erik Notified = 29517661) % Sat, Pankaj POC (test 77 % code = 81388816) Lab Interpretation Abnormal (test code = 13697-3) [facility] POC docked [id number] 11:16:15 Test Item Value Reference Range Interpretation Comments pH, Pankaj POC (test code 7.32 7.33-7.43 L = 71877902) pCO2,Pankaj POC (test code 31.0 See_Comment L [Au tomated = 38524913) message] The sy stem which generated this result transmitted reference range : 38 - 50 mmHg. The reference range was not used to interpret this result as normal/abnormal . PO2, Venous POC (BKR) 44 See_Comment L [Auto mated (test code = 94334995) dakicka [employer]] The system which generated this result transmitted reference range : 50 - 75 mm Hg. The reference range was not used to interpret this result as normal/abnormal . Ionized Calcium POC 1.24 mmol/L 1.15-1.29 (test code = 31141753) HCO3, Pankaj POC (test 16 mmol/L 22-26 L code = 16248160) TCO2 POC (test code = 17 mmol/L 21-32 L 86890150) Base Deficit, Pankaj POC -9 (test code = 47297562) Sample Type (test code IVEN Physi erik Notified = 31081445) % Sat, Pankaj POC (test 77 % code = 64240351) Lab Interpretation Abnormal (test code = 32339-1) [facility] POC docked [id number] 11:16:15 Test Item Value Reference Range Interpretation Comments pH, Pankaj POC (test code 7.32 7.33-7.43 L = 80996528) pCO2,Pankaj POC (test code 31.0 See_Comment L [Au tomated = 02740764) message] The sy stem which generated this result transmitted reference range : 38 - 50 mmHg. The reference range was not used to interpret this result as normal/abnormal . PO2, Venous POC (BKR) 44 See_Comment L [Auto mated (test code = 43078765) messa ge] The system which generated this result transmitted reference range : 50 - 75 mm Hg. The reference range was not used to interpret this result as normal/abnormal . Ionized Calcium POC 1.24 mmol/L 1.15-1.29 (test code = 14319874) HCO3, Pankaj POC (test 16 mmol/L 22-26 L code = 62652675) TCO2 POC (test code = 17 mmol/L 21-32 L 93008583) Base Deficit, Pankaj POC -9 (test code = 50338982) Sample Type (test code STEPAN Physi erik Notified = 23524443) % Sat, Pankaj POC (test 77 % code = 58703940) Lab Interpretation Abnormal (test code = 44941-6) [facility] POC docked [id number] 11:16:15 Test Item Value Reference Range Interpretation Comments pH, Pankaj POC (test code 7.32 7.33-7.43 L = 65942040) pCO2,Pankaj POC (test code 31.0 See_Comment L [Au tomated = 51367715) message] The sy stem which generated this result transmitted reference range : 38 - 50 mmHg. The reference range was not used to interpret this result as normal/abnormal . PO2, Venous POC (BKR) 44 See_Comment L [Auto mated (test code = 25330858) messa ge] The system which generated this result transmitted reference range : 50 - 75 mm Hg. The reference range was not used to interpret this result as normal/abnormal . Ionized Calcium POC 1.24 mmol/L 1.15-1.29 (test code = 77432895) HCO3, Pankaj POC (test 16 mmol/L 22-26 L code = 47835222) TCO2 POC (test code = 17 mmol/L 21-32 L 72352681) Base Deficit, Pankaj POC -9 (test code = 92314826) Sample Type (test code STEPAN valencia Notified = 34603558) % Sat, Pankaj POC (test 77 % code = 65577954) Lab Interpretation Abnormal (test code = 78634-5) [facility] POC docked [id number] 11:16:15 Test Item Value Reference Range Interpretation Comments pH, Pankaj POC (test code 7.32 7.33-7.43 L = 11835583) pCO2,Pankaj POC (test code 31.0 See_Comment L [Au tomated = 74379915) message] The sy stem which generated this result transmitted reference range : 38 - 50 mmHg. The reference range was not used to interpret this result as normal/abnormal . PO2, Venous POC (BKR) 44 See_Comment L [Auto mated (test code = 68750729) messa ge] The system which generated this result transmitted reference range : 50 - 75 mm Hg. The reference range was not used to interpret this result as normal/abnormal . Ionized Calcium POC 1.24 mmol/L 1.15-1.29 (test code = 42186760) HCO3, Pankaj POC (test 16 mmol/L 22-26 L code = 70898761) TCO2 POC (test code = 17 mmol/L 21-32 L 65637788) Base Deficit, Pankaj POC -9 (test code = 91128140) Sample Type (test code STEPAN valencia Notified = 38810206) % Sat, Pankaj POC (test 77 % code = 73732120) Lab Interpretation Abnormal (test code = 10710-6) [facility] POC docked [id number] 11:16:15 Test Item Value Reference Range Interpretation Comments pH, Pankaj POC (test code 7.32 7.33-7.43 L = 73874606) pCO2,Pankaj POC (test code 31.0 See_Comment L [Au tomated = 68534328) message] The sy stem which generated this result transmitted reference range : 38 - 50 mmHg. The reference range was not used to interpret this result as normal/abnormal . PO2, Venous POC (BKR) 44 See_Comment L [Auto mated (test code = 67423831) messa ge] The system which generated this result transmitted reference range : 50 - 75 mm Hg. The reference range was not used to interpret this result as normal/abnormal . Ionized Calcium POC 1.24 mmol/L 1.15-1.29 (test code = 45689985) HCO3, Pankaj POC (test 16 mmol/L 22-26 L code = 12550935) TCO2 POC (test code = 17 mmol/L 21-32 L 45853344) Base Deficit, Pankaj POC -9 (test code = 94471632) Sample Type (test code IVEN Physi erik Notified = 31692969) % Sat, Pankaj POC (test 77 % code = 17648481) Lab Interpretation Abnormal (test code = 09627-9) [facility] POC docked [id number] 11:16:15 Test Item Value Reference Range Interpretation Comments pH, Pankaj POC (test code 7.32 7.33-7.43 L = 86353442) pCO2,Pankaj POC (test code 31.0 See_Comment L [Au tomated = 14035030) message] The sy stem which generated this result transmitted reference range : 38 - 50 mmHg. The reference range was not used to interpret this result as normal/abnormal . PO2, Venous POC (BKR) 44 See_Comment L [Auto mated (test code = 95707138) dakicka ge] The system which generated this result transmitted reference range : 50 - 75 mm Hg. The reference range was not used to interpret this result as normal/abnormal . Ionized Calcium POC 1.24 mmol/L 1.15-1.29 (test code = 55682804) HCO3, Pankaj POC (test 16 mmol/L 22-26 L code = 49245828) TCO2 POC (test code = 17 mmol/L 21-32 L 91243748) Base Deficit, Pankaj POC -9 (test code = 24953734) Sample Type (test code IVEN Physi erik Notified = 97924860) % Sat, Pankaj POC (test 77 % code = 71882302) Lab Interpretation Abnormal (test code = 28822-9) [facility] POC docked [id number] 11:16:15 Test Item Value Reference Range Interpretation Comments pH, Pankaj POC (test code 7.32 7.33-7.43 L = 66096841) pCO2,Pankaj POC (test code 31.0 See_Comment L [Au tomated = 60119916) message] The sy stem which generated this result transmitted reference range : 38 - 50 mmHg. The reference range was not used to interpret this result as normal/abnormal . PO2, Venous POC (BKR) 44 See_Comment L [Auto mated (test code = 36815008) messa ge] The system which generated this result transmitted reference range : 50 - 75 mm Hg. The reference range was not used to interpret this result as normal/abnormal . Ionized Calcium POC 1.24 mmol/L 1.15-1.29 (test code = 64988465) HCO3, Pankaj POC (test 16 mmol/L 22-26 L code = 68479642) TCO2 POC (test code = 17 mmol/L 21-32 L 81609786) Base Deficit, Pankaj POC -9 (test code = 72921302) Sample Type (test code IVJESSICA Physi erik Notified = 32263061) % Sat, Pankaj POC (test 77 % code = 85956193) Lab Interpretation Abnormal (test code = 26994-7) [place] [address] LEAD [id number] 20:59:5612 LEAD EKG FOR [facility] Test Date: 2813-43-76Tra Name: DORA PAEZRY Department: 5520Patient ID: [id number] Room: Gender: M 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: [id number]: 1970 Requested By: TANJA Garza Number: [id number] Reading MD: Chiara Calles MeasurementsIntervals [place] Rate: 75 P: 84PR: 153 QRS: 67QRSD: 104 T: 77QT: 344 QTc: 373 Interpretive StatementsSINUS RHYTHMPOSSIBLE RIGHT VENTRICULAR CONDUCTION DELAY [RSR (QR) IN V1/V2]Electronically Signed On 01-09-2022 8:27:19 CDT by [place] [address] LEAD [id number] 20:59:5612 LEAD EKG FOR [facility] Test Date: 1160-69-28Fzj Name: DORA MCNEILL Department: 5520Patient ID: [id number] Room: Gender: M 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: [id number]: 1970 Requested By: TANJA Garza Number: [id number] Reading MD: Chiara Calles MeasurementsIntervals [place] Rate: 75 P: 84PR: 153 QRS: 67QRSD: 104 T: 77QT: 344 QTc: 373 Interpretive StatementsSINUS RHYTHMPOSSIBLE RIGHT VENTR ICULAR CONDUCTION DELAY [RSR (QR) IN V1/V2]Electronically Signed On 01-09-2022 8:27:19 CDT by Chiara [employer] [facility] LEAD [id number] 20:59:5612 LEAD EKG FOR [facility] Test Date: 7765-84-10Xdx Name: DORA PAEZRY Department: 5520Patient ID: [id number] Room: Gender: M 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: [id number]: 1970 Requested By: TANJA Garza Number: [id number] Reading MD: Chiara Calles MeasurementsIntervals [place] Rate: 75 P: 84PR: 153 QRS: 67QRSD: 104 T: 77QT: 344 QTc: 373 Interpretive StatementsSINUS RHYTHMPOSSIBLE RIGHT VENTRICULAR CONDUCTION DELAY [RSR (QR) IN V1/V2]Electronically Signed On 01-09-2022 8:27:19 CDT by [facility]robertPetHubMer[facility] LEAD [id number] 20:59:5612 LEAD EKG FOR [facility] Test Date: 4613-17-09Pre Name: DORA PAEZRY Department: 5520Patient ID: [id number] Room: Gender: M 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: [id number]: 1970 Requested By: TANJA Garza Number: [id number] Reading MD: Chiara Calles MeasurementsIntervals [place] Rate: 75 P: 84PR : 153 QRS: 67QRSD: 104 T: 77QT: 344 QTc: 373 Interpretive StatementsSINUS RHYTHMPOSSIBLE RIGHT VENTRICULAR CONDUCTION DELAY [RSR (QR) IN V1/V2]Electronically Signed On 01-09-2022 8:27:19 CDT by [facility] [employer] [facility]Gl[facility] LEAD [id number] 20:59:5612 LEAD EKG FOR [facility] Test Date: 7639-62-45Qlr Name: DORA LESTER Department: 5520Patient ID: [id number] Room: Gender: M 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: [id number]: 1970 Requested By: TANJA Garza Number: [id number] Reading MD: Chiara Calles MeasurementsIntervals [place] Rate: 75 P: 84PR: 153 QRS: 67QRSD: 104 T: 77QT: 344 QTc: 373 Interpretive StatementsSINUS RHYTHMPOSSIBLE RIGHT VENTRICULAR CONDUCTION DELAY [RSR (QR) IN V1/V2]Electronically Signed On 01-09-2022 8:27:19 CDT by [employer] LEAD [id number] 20:59:5612 LEAD EKG FOR [facility] Test Date: 2213-81-75Epz Name: DORA MCNEILL Department: 5520Patient ID: [id number] Room: Gender: M 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: [id number]: 1970 Requested By: TANJA Garza Number: [id number] Reading MD: Chiara Calles MeasurementsIntervals [place] Rate: 75 P: 84PR: 153 QRS: 67QRSD: 104 T: 77QT: 344 QTc: 373 Interpretive StatementsSINUS RHYTHMPOSSIBLE RIGHT VENTR ICULAR CONDUCTION DELAY [RSR (QR) IN V1/V2]Electronically Signed On 01-09-2022 8:27:19 CDT by [employer]12 LEAD [id number] 20:59:5612 LEAD EKG FOR [facility] Test Date: 7062-59-52Rmk Name: DORA MCNEILL Department: 5520Patient ID: [id number] Room: Gender: M 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: [id number]: 1970 Requested By: TANJA Garza Number: [id number] Reading MD: Chiara Calles MeasurementsIntervals [place] Rate: 75 P: 84PR: 153 QRS: 67QRSD: 104 T: 77QT: 344 QTc: 373 Interpretive StatementsSINUS RHYTHMPOSSIBLE RIGHT VENTRICULAR CONDUCTION DELAY [RSR (QR) IN V1/V2]Electronically Signed On 01-09-2022 8:27:19 CDT by [employer]12 LEAD [id number] 20:59:5612 LEAD EKG FOR [facility] Test Date: 1303-45-45Dhl Name: DORA PAEZRY Department: 5520Patient ID: [id number] Room: Gender: M 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: [id number]: 1970 Requested By: TANJA Garza Number: [id number] Reading MD: Chiara Calles MeasurementsIntervals [place] Rate: 75 P: 84 ID: 153 QRS: 67QRSD: 104 T: 77QT: 344 QTc: 373 Interpretive StatementsSINUS RHYTHMPOSSIBLE RIGHT VENTRICULAR CONDUCTION DELAY [RSR (QR) IN V1/V2]Electronically Signed On 01-09-2022 8:27:19 CDT by [facility]Most[facility] LEAD [id number] 20:59:5612 LEAD EKG FOR [facility] Test Date: 1423-56-86Xhf Name: DORA LESTER Department: 5520Patient ID: [id number] Room: Gender: M 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: [id number]: 1970 Requested By: TANJA Garza Number: [id number] Reading MD: Chiara Calles MeasurementsIntervals [place] Rate: 75 P: 84PR: 153 QRS: 67QRSD: 104 T: 77QT: 344 QTc: 373 Interpretive StatementsSINUS RHYTHMPOSSIBLE RIGHT VENTRICULAR CONDUCTION DELAY [RSR (QR) IN V1/V2]Electronically Signed On 01-09-2022 8:27:19 CDT by Chiara [employer] CollarbakariGlacier BayCompaflo.do [place] [address] LEAD [id number] 20:59:5612 LEAD EKG FOR [facility] Test Date: 2084-36-95Law Name: DORA LESTER Department: 5520Patient ID: [id number] Room: Gender: M 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: [id number]: 1970 Requested By: TANJA Garza Number: [id number] Reading MD: Chiara Calles MeasurementsIntervals [place] Rate: 75 P: 84PR: 153 QRS: 67QRSD: 104 T: 77QT: 344 QTc: 373 Interpretive StatementsSINUS RHYTHMPOSSIBLE RIGHT PANKAJ TRICULAR CONDUCTION DELAY [RSR (QR) IN V1/V2]Electronically Signed On 01-09-2022 8:27:19 CDT by [place] [employer] [facility]bakariGlacier BayMer[facility] [employer] LEAD [id number] 20:59:5612 LEAD EKG FOR [facility] Test Date: 6308-52-25Psp Name: DORA MCNEILL Department: 5520Patient ID: [id number] Room: Gender: M 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: [id number]: 1970 Requested By: TANJA Garza Number: [id number] Reading MD: Chiara Calles MeasurementsIntervals [place] Rate: 75 P: 84PR: 153 QRS: 67QRSD: 104 T: 77QT: 344 QTc: 373 Interpretive StatementsSINUS RHYTHMPOSSIBLE RIGHT VENTRICULAR CONDUCTION DELAY [RSR (QR) IN V1/V2]Electronically Signed On 01-09-2022 8:27:19 CDT by [facility] centerPetHubMer[facility] Hospital [facility] LEAD [id number] 20:59:5612 LEAD EKG FOR [facility] Test Date: 9710-26-25Xkx Name: DORA PAEZRY Department: 5520Patient ID: [id number] Room: Gender: M 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: [id number]: 1970 Requested By: TANJA Garza Number: [id number] Reading MD: Chiara Calles MeasurementsIntervals [place] Rate: 75 P: 84P R: 153 QRS: 67QRSD: 104 T: 77QT: 344 QTc: 373 Interpretive StatementsSINUS RHYTHMPOSSIBLE RIGHT VENTRICULAR CONDUCTION DELAY [RSR (QR) IN V1/V2]Electronically Signed On 01-09-2022 8:27:19 CDT by [facility] SystemPetHubMer[facility] Hospital Ozarkflo.do [employer] LEAD [id number] 20:59:5612 LEAD EKG FOR [facility] Test Date: 1189-75-37Sla Name: DORA MCNEILL Department: 5520Patient ID: [id number] Room: Gender: M 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: [id number]: 1970 Requested By: TANJA Garza Number: [id number] Reading MD: Chiara Calles MeasurementsIntervals [place] Rate: 75 P: 84PR: 153 QRS: 67QRSD: 104 T: 77QT: 344 QTc: 373 Interpretive StatementsSINUS RHYTHMPOSSIBLE RIGHT VENTRICULAR CONDUCTION DELAY [RSR (QR) IN V1/V2]Electronically Signed On 01-09-2022 8:27:19 CDT by Chiara EsquedaBoston [employer]12 LEAD [id number] 20:59:5612 LEAD EKG FOR [facility] Test Date: 2112-40-25Iyi Name: DORA MCNEILL Department: 5520Patient ID: [id number] Room: Gender: M 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: [id number]: 1970 Requested By: TANJA Garza Number: [id number] Reading MD: Chiara Calles MeasurementsIntervals [place] Rate: 75 P: 84PR: 153 QRS: 67QRSD: 104 T: 77QT: 344 QTc: 373 Interpretive StatementsSINUS RHYTHMPOSSIBLE RIGHT VENT RICULAR CONDUCTION DELAY [RSR (QR) IN V1/V2]Electronically Signed On 01-09-2022 8:27:19 CDT by SeeGlacier BayCompaBoston [employer]12 LEAD [id number] 20:59:5612 LEAD EKG FOR [facility] Test Date: 3757-55-87Rbu Name: DORA MCNEILL Department: 5520Patient ID: [id number] Room: Gender: M 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: [id number]: 1970 Requested By: TANJA Garza Number: [id number] Reading MD: Chiara Calles MeasurementsIntervals [place] Rate: 75 P: 84PR: 153 QRS: 67QRSD: 104 T: 77QT: 344 QTc: 373 Interpretive StatementsSINUS RHYTHMPOSSIBLE RIGHT VENTRICULAR CONDUCTION DELAY [RSR (QR) IN V1/V2]Electronically Signed On 01-09-2022 8:27:19 CDT by Chiara [employer] CollarbakariGlacier BayCompaBoston [employer] LEAD [id number] 20:59:5612 LEAD EKG FOR [facility] Test Date: 0491-43-37Otx Name: DORA MCNEILL Department: 5520Patient ID: [id number] Room: Gender: M 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: [id number]: 1970 Requested By: TANJA Garza Number: [id number] Reading MD: Chiara Calles MeasurementsIntervals [place] Rate: 75 P: 84PR: 153 QRS: 67QRSD: 104 T: 77QT: 344 QTc: 373 Interpretive StatementsSINUS RHYTHMPOSSIBLE RIGHT VENTRICULAR CONDUCTION DELAY [RSR (QR) IN V1/V2]Electronically Signed On 01-09-2022 8:27:19 CDT by Chiara [employer] [facility] [employer] LEAD [id number] 20:59:5612 LEAD EKG FOR [facility] Test Date: 8888-59-94Ciq Name: DORA MCNEILL Department: 5520Patient ID: [id number] Room: Gender: M 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: [id number]: 1970 Requested By: TANJA Garza Number: [id number] Reading MD: Chiara Calles MeasurementsIntervals [place] Rate: 75 P: 84PR: 153 QRS: 67QRSD: 104 T: 77QT: 344 QTc: 373 Interpretive StatementsSINUS RHYTHMPOSSIBLE RIGHT VENTRICULAR CONDUCTION DELAY [RSR (QR) IN V1/V2]Electronically Signed On 01-09-2022 8:27:19 CDT by A [place] [facility]12 LEAD [id number] 20:59:5612 LEAD EKG FOR [facility] Test Date: 1843-85-11Zgs Name: DORA MCNEILL Department: 5520Patient ID: [id number] Room: Gender: M 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: [id number]: 1970 Requested By: TANJA Garza Number: [id number] Reading MD: Chiara Calles MeasurementsIntervals [place] Rate: 75 P: 84PR: 153 QRS: 67QRSD: 104 T: 77QT: 344 QTc: 373 Interpretive StatementsSINUS RHYTHMPOSSIBLE RIGHT VENT RICULAR CONDUCTION DELAY [RSR (QR) IN V1/V2]Electronically Signed On 01-09-2022 8:27:19 CDT by A [place] [facility]PetHub[facility]ark[facility]12 LEAD [id number] 20:59:5612 LEAD EKG FOR [facility] Test Date: 3635-62-78Ojv Name: DORA PAEZRY Department: 5520Patient ID: [id number] Room: Gender: M 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: [id number]: 1970 Requested By: TANJA Garza Number: [id number] Reading MD: Chiara Calles MeasurementsIntervals [place] Rate: 75 P: 84PR: 153 QRS: 67QRSD: 104 T: 77QT: 344 QTc: 373 Interpretive StatementsSINUS RHYTHMPOSSIBLE RIGHT VENTRICULAR CONDUCTION DELAY [RSR (QR) IN V1/V2]Electronically Signed On 01-09-2022 8:27:19 CDT by [facility]Glac[facility]Mer[facility]12 LEAD [id number] 20:59:5612 LEAD EKG FOR [facility] Test Date: 7787-84-20Nka Name: DORA PAEZRY Department: 5520Patient ID: [id number] Room: Gender: M 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: [id number]: 1970 Requested By: TANJA Garza Number: [id number] Reading MD: Chiara Calles MeasurementsIntervals [place] Rate: 75 P: 84 ID: 153 QRS: 67QRSD: 104 T: 77QT: 344 QTc: 373 Interpretive StatementsSINUS RHYTHMPOSSIBLE RIGHT VENTRICULAR CONDUCTION DELAY [RSR (QR) IN V1/V2]Electronically Signed On 01-09-2022 8:27:19 CDT by Chiara Davis[place] [address] LEAD [id number] 20:59:5612 LEAD EKG FOR [facility] Test Date: 7280-21-17Ikd Name: DORA LESTER Department: 5520Patient ID: [id number] Room: Gender: M 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: [id number]: 1970 Requested By: TANJA Garza Number: [id number] Reading MD: Chiara Calles MeasurementsIntervals [place] Rate: 75 P: 84PR: 153 QRS: 67QRSD: 104 T: 77QT: 344 QTc: 373 Interpretive StatementsSINUS RHYTHMPOSSIBLE RIGHT VENTRICULAR CONDUCTION DELAY [RSR (QR) IN V1/V2]Electronically Signed On 01-09-2022 8:27:19 CDT by [facility] SystemBioMedical Technology SolutionsShannon [place] [address] LEAD [id number] 20:59:5612 LEAD EKG FOR [facility] Test Date: 0033-35-98Fpi Name: DORA MCNEILL Department: 5520Patient ID: [id number] Room: Gender: 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: [id number]: 1970 Requested By: TANJA Garza Number: [id number] Reading MD: Chiara Calles MeasurementsIntervals [place] Rate: 75 P: 84PR: 153 QRS: 67QRSD: 104 T: 77QT: 344 QTc: 373 Interpretive StatementsSINUS RHYTHMPOSSIBLE RIGHT VENT RICULAR CONDUCTION DELAY [RSR (QR) IN V1/V2]Electronically Signed On 01-09-2022 8:27:19 CDT by [place] [address] LEAD [id number] 20:59:5612 LEAD EKG FOR [facility] Test Date: 8259-60-11Pfm Name: DORA MCNEILL Department: 5520Patient ID: [id number] Room: Gender: 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: [id number]: 1970 Requested By: TANJA Garza Number: [id number] Reading MD: Chiara Calles MeasurementsIntervals [place] Rate: 75 P: 84PR: 153 QRS: 67QRSD: 104 T: 77QT: 344 QTc: 373 Interpretive StatementsSINUS RHYTHMPOSSIBLE RIGHT VENTRICULAR CONDUCTION DELAY [RSR (QR) IN V1/V2]Electronically Signed On 01-09-2022 8:27:19 CDT by [facility] [place][note 2] W/AUTO [id number] 23:52:00 Test Item Value Reference Range Interpretation [...] = MX#) 0.8 k/mm3 0.1-0.8 N LIVER [id number] 20:04:00 Test Item Value Reference Range Interpretation Comments TOTAL PROTEIN (test code 6.7 GM/DL 5.0-8.0 N Per formed by = PROT) 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 [facility] ALBUMIN (test code = 3.4 [...] 67 UNITS/L 25-125 N LYNDSEY) BASIC METABOLIC [id number] 19:54:00 Test Item Value Reference Range Interpretation [...] POCGLU) 81 MG/DL - CT ABD PELVIS W/[id number] 00:00:00 [facility] : 1970 Sex: M Name: HOANG MCNEILL FSED : 1970 Age/S: 51 / M [address] [facility] Unit #: [id number] Loc: [place] [address] Phys: Raffaele Levi MD Acct: [id number] Dis Date: Status: PRE ER PHONE #: Exam Date: 09/23/20211999 FAX #: Reason: RUQ PAIN, VOMITING EXAMS: CPT CODE: [id number] CT ABD PELVIS W/CONT 59931 PROCEDURE INFORMATION: Exam: CT Abdomen And Pelvis [...] : 1970 Age/S: 51 / M [address] [facility] Unit #: [id number] Loc: [place] [address] Phys: Raffaele Levi MD Acct: [id number] Dis Date: Status: PRE ER PHONE #: Exam Date: 09/23/20211999 FAX #: Reason: RUQ PAIN, VOMITING EXAMS: CPT CODE: [id number] CT ABD PELVIS W/CONT 56806 <Continued> abdominal small bowel loops may relate to incomplete luminal distention or enteritis. 2. 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 No obstruction. at 2049 Reported and signed by: Juan Juarez M.D.CC: Raffaele Levi MD Technologist:RT Wicho(R)(CT) CTDI: DLP: Trnscb Date/Time: 09/23/2021 (2048) [email or web address] Orig Print D/T: S: 09/23/2021 (2049) PAGE 2 Signed ReportCOMP. METABOLIC PANEL (61823)2021-09-14 03:57:44 Test Item Value Reference Range Interpretation Comments NA (test code = 132 mmol/L 135-145 L 5778882531) K (test code = 4.1 mmol/L 3.5-5.0 4272158258) CL (test code = 101 mmol/L 98-108 6487924264) CO2 TOTAL (test code = 23 mmol/L 23-31 8551859016) AGAP (test code = 2-16 3178895628) BUN (test code = 23 mg/dL 7-23 3403691338) GLUCOSE (test code = 97 mg/dL 70-110 0967814472) CREATININE (test code = 1.48 mg/dL 0.60-1.25 H 3348544910) TOTAL BILI (test code = 0.3 mg/dL 0.1-1.2 4240244199) CALCIUM (test code = 9.0 mg/dL 8.6-10.6 6618166820) T PROTEIN (test code = 6.2 g/dL 6.3-8.2 L 3220384660) ALBUMIN (test code = 3.7 g/dL 3.5-5.0 6580516183) ALK PHOS (test code = 82 U/L 34-122 1002782411) ALTv (test code = 21 U/L 5-50 1742-6) AST(SGOT) (test code = 20 U/L 13-40 1952649154) eGFR (test code = mL/min/1.73m2 8292767691) GILBERTO (test code = GILBERTO) Association of [...] tests). Lab Interpretation Abnormal (test code = 82705-4) [facility] WITH [id number] 03:52:42 Test Item Value Reference Range Interpretation [...] RDW-SD (test code = 47.2 fL 38.5-51.6 67989-0) RDW-CV (test code = 14.0 % 12.1-15.4 788-0) PLT (test code = See_Comment H [Automated 777-3) message] The sy stem which generated this result transmitted reference range : 150 - 328 10*3/ ?L. The reference r meredith was not used to interpret this result as normal/abnormal . MPV (test code = 9.2 fL 9.8-13.0 L 45862-0) NRBC/100 WBC (test See_Comment [Automat ed code = 3645907718) message] The system which generated this result transmitted reference range : 0.0 - 10.0 /100 WBCs. The refer ence range was not u sed to interpret th is result as normal/abnormal . NRBC x10^3 (test code <0.01 See_Comment [Auto mated = 5259349849) message] The s ystem which generated this result transmitted reference range : 10*3/?L. The reference range was not used to interpret this result as normal/abnormal . GRAN MAT (NEUT) % 61.3 % (test code = 770-8) IMM GRAN % (test code 0.20 % = 7796467612) LYMPH % (test code = 23.1 % 736-9) MONO % (test code = 13.7 % 5905-5) EOS % (test code = 1.5 % 713-8) BASO % (test code = 0.2 % 706-2) GRAN MAT x10^3(ANC) 2.78 10*3/uL 1.99-6.95 (test code = 7939770198) IMM GRAN x10^3 (test <0.03 0.00-0.06 code = 2968012290) LYMPH x10^3 (test code 1.05 10*3/uL 1.09-3.23 L = 731-0) MONO x10^3 (test code 0.62 10*3/uL 0.36-1.02 = 742-7) EOS x10^3 (test code = 0.07 10*3/uL 0.06-0.53 711-2) BASO x10^3 (test code <0.03 0.01-0.09 = 704-7) Lab Interpretation Abnormal (test code = 32945-2) [facility] [id number] 13:36:34 Test Item Value Reference Interpretation Comments Range TROPONIN I (test 0.001 ng/mL See_Comment [Automated code = 6216961673) message] The system which generated this result [...] biotin. Lab Interpretation Normal (test code = 79289-8) [facility]-[id number] 13:36:34 Test Item Value Reference Range Interpretation Comments NT-proBNP (test code 79 pg/mL See_Comment [Autom ated = 3900595406) message] The system which generated this result transmitted reference range : <=125. The reference range was not used to interpret this result as normal/abnormal . GILBERTO (test code = GILBERTO) Biotin has been reported to cause a negative bias, interpret results relative to patient's use of biotin. Lab Interpretation Normal (test code = 03476-1) [facility] METABOLIC PANEL (NA, K, CL, CO2, GLUCOSE, BUN, CREATININE, CA)2021-09-12 13:24:32 Test Item Value Reference Range Interpretation Comments NA (test code = 134 mmol/L 135-145 L 6473418172) K (test code = 4.3 mmol/L 3.5-5.0 1865128794) CL (test code = 102 mmol/L 98-108 1131929938) CO2 TOTAL (test code = 23 mmol/L 23-31 6242912136) AGAP (test code = 2-16 0240279043) BUN (test code = 22 mg/dL 7-23 6283382794) GLUCOSE (test code = 89 mg/dL 70-110 8717704405) CREATININE (test code = 1.69 mg/dL 0.60-1.25 H 6660806012) CALCIUM (test code = 9.0 mg/dL 8.6-10.6 5667069585) eGFR (test code = mL/min/1.73m2 1477452616) GILBERTO (test code = GILBERTO) Association of [...] tests). Lab Interpretation Abnormal (test code = 36986-9) [facility] WITH [id number] 13:09:28 Test Item Value Reference Range Interpretation [...] RDW-SD (test code = 45.3 fL 38.5-51.6 83965-8) RDW-CV (test code = 13.9 % 12.1-15.4 788-0) PLT (test code = See_Comment H [Automated 777-3) message] The sy stem which generated this result transmitted reference range : 150 - 328 10*3/ ?L. The reference r meredith was not used to interpret this result as normal/abnormal . MPV (test code = 9.0 fL 9.8-13.0 L 08162-0) NRBC/100 WBC (test See_Comment [Automat ed code = 4592501728) message] The system which generated this result transmitted reference range : 0.0 - 10.0 /100 WBCs. The refer ence range was not u sed to interpret th is result as normal/abnormal . NRBC x10^3 (test code <0.01 See_Comment [Auto mated = 2941083065) message] The s ystem which generated this result transmitted reference range : 10*3/?L. The reference range was not used to interpret this result as normal/abnormal . GRAN MAT (NEUT) % 69.7 % (test code = 770-8) IMM GRAN % (test code 0.40 % = 1719888905) LYMPH % (test code = 16.9 % 736-9) MONO % (test code = 11.9 % 5905-5) EOS % (test code = 0.7 % 713-8) BASO % (test code = 0.4 % 706-2) GRAN MAT x10^3(ANC) 3.88 10*3/uL 1.99-6.95 (test code = 8115050467) IMM GRAN x10^3 (test <0.03 0.00-0.06 code = 0870554493) LYMPH x10^3 (test code 0.94 10*3/uL 1.09-3.23 L = 731-0) MONO x10^3 (test code 0.66 10*3/uL 0.36-1.02 = 742-7) EOS x10^3 (test code = 0.04 10*3/uL 0.06-0.53 L 711-2) BASO x10^3 (test code <0.03 0.01-0.09 = 704-7) Lab Interpretation Abnormal (test code = 34126-2) [facility] WITH [id number] 05:55:28 Test Item Value Reference Range Interpretation [...] RDW-SD (test code = 45.4 fL 38.5-51.6 21498-9) RDW-CV (test code = 13.8 % 12.1-15.4 788-0) PLT (test code = See_Comment [Automated 777-3) message] The sy stem which generated this result transmitted reference range : 150 - 328 10*3/ ?L. The reference r meredith was not used to interpret this result as normal/abnormal . MPV (test code = 9.2 fL 9.8-13.0 L 59691-6) NRBC/100 WBC (test See_Comment [Automat ed code = 9195458923) message] The system which generated this result transmitted reference range : 0.0 - 10.0 /100 WBCs. The refer ence range was not u sed to interpret th is result as normal/abnormal . NRBC x10^3 (test code <0.01 See_Comment [Auto mated = 8852268658) message] The s ystem which generated this result transmitted reference range : 10*3/?L. The reference range was not used to interpret this result as normal/abnormal . GRAN MAT (NEUT) % 60.6 % (test code = 770-8) IMM GRAN % (test code 0.20 % = 3248903858) LYMPH % (test code = 25.5 % 736-9) MONO % (test code = 10.5 % 5905-5) EOS % (test code = 2.8 % 713-8) BASO % (test code = 0.4 % 706-2) GRAN MAT x10^3(ANC) 3.23 10*3/uL 1.99-6.95 (test code = 0886701592) IMM GRAN x10^3 (test <0.03 0.00-0.06 code = 0854489292) LYMPH x10^3 (test code 1.36 10*3/uL 1.09-3.23 = 731-0) MONO x10^3 (test code 0.56 10*3/uL 0.36-1.02 = 742-7) EOS x10^3 (test code = 0.15 10*3/uL 0.06-0.53 711-2) BASO x10^3 (test code <0.03 0.01-0.09 = 704-7) Lab Interpretation Abnormal (test code = 25132-7) [facility]22-[facility] 05:48:47 Test Item Value Reference Range Interpretation Comments LIPASE (test code = 4485891511) 116 U/L 0-220 Lab Interpretation (test code = Normal 75234-3) [facility]. METABOLIC PANEL (57103)2021-09-09 05:48:46 Test Item Value Reference Range Interpretation Comments NA (test code = 137 mmol/L 135-145 7090623291) K (test code = 4.0 mmol/L 3.5-5.0 6287001313) CL (test code = 108 mmol/L 98-108 0596161392) CO2 TOTAL (test code = 22 mmol/L 23-31 L 1192950104) AGAP (test code = 2-16 1065845214) BUN (test code = 23 mg/dL 7-23 4263350138) GLUCOSE (test code = 89 mg/dL 70-110 0739700995) CREATININE (test code = 1.28 mg/dL 0.60-1.25 H 2811187567) TOTAL BILI (test code = 0.4 mg/dL 0.1-1.8 8277309039) CALCIUM (test code = 8.9 mg/dL 8.6-10.6 7747231145) T PROTEIN (test code = 6.0 g/dL 6.3-8.2 L 6101932027) ALBUMIN (test code = 3.5 g/dL 3.5-5.0 2688256451) ALK PHOS (test code = 67 U/L 34-122 7335789734) ALTv (test code = 18 U/L 5-50 1742-6) AST(SGOT) (test code = 22 U/L 13-40 1898056038) eGFR (test code = mL/min/1.73m2 2847393443) GILBERTO (test code = GILBERTO) Association of [...] tests). Lab Interpretation Abnormal (test code = 32408-3) [facility]. METABOLIC PANEL (83240)2021-09-08 02:29:45 Test Item Value Reference Range Interpretation Comments NA (test code = 138 mmol/L 135-145 0658348112) K (test code = 4.3 mmol/L 3.5-5.0 2069960741) CL (test code = 106 mmol/L 98-108 0561914863) CO2 TOTAL (test code = 27 mmol/L 23-31 9908109019) AGAP (test code = 2-16 1706956959) BUN (test code = 22 mg/dL 7-23 7121387861) GLUCOSE (test code = 90 mg/dL 70-110 1511501277) CREATININE (test code = 1.36 mg/dL 0.60-1.25 H 1648535319) TOTAL BILI (test code = 0.4 mg/dL 0.1-1.4 7172501097) CALCIUM (test code = 9.2 mg/dL 8.6-10.6 6007807824) T PROTEIN (test code = 6.5 g/dL 6.3-8.2 0892112349) ALBUMIN (test code = 3.8 g/dL 3.5-5.0 3777204045) ALK PHOS (test code = 73 U/L 34-122 8399486888) ALTv (test code = 19 U/L 50 1742-6) AST(SGOT) (test code = 24 U/L 13-40 5911031285) eGFR (test code = mL/min/1.73m2 9926816224) GILBERTO (test code = GILBERTO) Association of [...] tests). Lab Interpretation Abnormal (test code = 99327-8) [facility]2022-01-16 02:29:45 Test Item Value Reference Range Interpretation Comments LIPASE (test code = 3717996021) 75 U/L 0-220 Lab Interpretation (test code = Normal 33425-5) [facility] America[facility] WITH [id number] 02:15:21 Test Item Value Reference Range Interpretation [...] RDW-SD (test code = 45.9 fL 38.5-51.6 10879-0) RDW-CV (test code = 13.6 % 12.1-15.4 788-0) PLT (test code = See_Comment [Automated 777-3) message] The sy stem which generated this result transmitted reference range : 150 - 328 10*3/ ?L. The reference r meredith was not used to interpret this result as normal/abnormal . MPV (test code = 9.4 fL 9.8-13.0 L 12556-6) NRBC/100 WBC (test See_Comment [Automat ed code = 3307676378) message] The system which generated this result transmitted reference range : 0.0 - 10.0 /100 WBCs. The refer ence range was not u sed to interpret th is result as normal/abnormal . NRBC x10^3 (test code <0.01 See_Comment [Auto mated = 7316291701) message] The s ystem which generated this result transmitted reference range : 10*3/?L. The reference range was not used to interpret this result as normal/abnormal . GRAN MAT (NEUT) % 66.0 % (test code = 770-8) IMM GRAN % (test code 0.50 % = 9510145791) LYMPH % (test code = 20.0 % 736-9) MONO % (test code = 9.8 % 5905-5) EOS % (test code = 3.5 % 713-8) BASO % (test code = 0.2 % 706-2) GRAN MAT x10^3(ANC) 3.77 10*3/uL 1.99-6.95 (test code = 1004750446) IMM GRAN x10^3 (test 0.03 10*3/uL 0.00-0.06 code = 6818201600) LYMPH x10^3 (test code 1.14 10*3/uL 1.09-3.23 = 731-0) MONO x10^3 (test code 0.56 10*3/uL 0.36-1.02 = 742-7) EOS x10^3 (test code = 0.20 10*3/uL 0.06-0.53 711-2) BASO x10^3 (test code <0.03 0.01-0.09 = 704-7) Lab Interpretation Abnormal (test code = 26693-8) [facility] AmericaL[facility] Acid Whole [id number] 02:10:44 Test Item Value Reference Range Interpretation Comments LACTIC ACID (test code = 1.35 mmol/L 0.50-2.20 9850199589) Lab Interpretation (test code = Normal 94403-4) [facility] PATH[facility] [id number] 15:31:19 Test Item Value Reference Range Interpretation Comments Case Report (test code Surgical Pathology ? ? = [id number]) ?Case: [id number] ? Authorizing Provider: ?Bia Pedro MD ?Collected: ? 09/03/2021 0801 ?Ordering Location: ? ? [facility] OR ? Received: ?09/03/2021841 ? Department ? Pathologist: ? Shaneka Douglas MD ? Specimen: ? ?ILEUM, Ileostomy ( staple ?end proximal ) ? Final Diagnosis (test v7szvIYlLBOxp0buFECveL code = 6393155773) FuZzEwMzNcZnRuYmpcdWMx IHtccnRmMVxlcGljOTYwMV srolAwLNVrlKYzD0Phctrg IBquKR1pGI3uwHdnbQTytS KuTCSyAeWgq1fcl526kIId w8hvNIVHxafyyNx2fOghH9 4qz8I6QdpzC75wzIMpFWO3 SBVdVBYrsGRnVXGvBAB9WW WcvZGfH9znHXYcFE0rbpaa JNaxKBvrCAFcuUL2YZDuvQ UyC3OfKTZqDVtiKVPbdpe7 KxSnPf7lvJGrxUhbBDafJX JkXHBsYWluXGZzMjBccGFy IEEuIElMRVVNLCBJTEVPU1 UKKAh5APFaaoFtJELzLG2g QkVOSUdOIElMRUFMIFRJU1 ZTKAKBXDDPFIFTY7UQYW9O X11XZKaxYVJKE0hPFgSqBE 6WVDMMDdpFI9YONWEAVMDJ RUxTLCBccGFyICAgICAgIC VMF82OODOHEN8DXQiUSAwl BMlPC2FDU89KQRSbktqpNM JcZnMyMiBTcmkgQmhhcmF0 dKlyX6I1hVToLVQKNzVTXD CizjbkDWK9q1cfjGZxUSMy eTZlRoDzLNFnYMWjd4pvJA VmbGFuZzEwMzNcZnRuYmpc nMQvPOClSzUfy6wmt772hY Uzj9bxGYAdLtE2sJFqNBPr rDllgvb8oHfrAiNhSZGjq7 lzcyBcZmNoYXJzZXQwIEFy xFRfM515SXPeXBpwi8hhj2 RhGPXdwPUpt1B1WQXDMJjp WcIaY428y7mhu3ykvfQwjG M1VVLcEIB3YDlgdeCkjzU3 JVcxnZNqZdH9LXednaTzCQ txkyRgrhFoYra4RCZeI491 IYT5lXkev0gwIXP3AFIsLS WzXxgmSp0zcQBvC213CRYx FWFAHZTyoAu7CHMakrOzfj HsgJIIr599I251k7otKATg zpVejOlJdtdlb7icZ211GM BhcGVydzEyMjQwXHBhcGVy tYM9FRLvSS0zcjvvHXxvNN ahCFWhekA1PUHigVRkU8Dn OWGnID2ickfxUMH0WXdbXO KkUSJ1FcAwZNBph8Sdjtu3 QfLqtr3eif36SAA2g0YwnV urLQI6TXH0ZyEeYq4jbOLk PPIxDO4oZeRjmFKgIYObsr 43kZztZVnbhdVpjK7dAjGp BBKhwBMcIVDtQF6ifWIiKZ YtnW3mzumdCNMsOtVdxjcp YXNsbPgzvvYaPq8imOvnFS L5AEfzP2pmuM4rXbS9HRwk H3yjiR0yGXs6EZylmBK6ZN JdpN8pVQ9kwtzjp7deXFtt YJfzOXAcqqV0ysM6SBVipM XyJ1UacT2cCYFpWF7asjcf t9zeYUE1OCbiSKHhTGX0Kp InSCDln1Qasms0JfZzx9Lr bLRrZNhyF38gx559YGXkbj KsB7knoRCxgvpywJDlvgcf AUgfwfA8WWUoLRBsWQubLO YxXGZzMjBcbGFuZzEwMzNc aGljaFxmMVxkYmNoXGYxXG bmG0wyRsSxZ4NkDHYeSuKm aDSbQCqplJW5NKOdNXHgp6 6ihWp1PPZvsgega1EnFLDt eKRlsUMmjG7wfbLzp2qnIC FwBZJeNDVwZ7PsTGV3fRCl TIQkhAOehEP7KI2stuLmCT 1hZGUgYnkgcmVzaWRlbnRz QRVkCDzxa2ohOM7tGZDakO darM5rqWJ7HKPcs2srmRBo yBMdj1ckp3ZslwVvRHuqIW HkBHpkRAIhKRUyLG5eUVYw mITvqgNvs4D1ZaxzvZUqsj efYiixmiZ2CQntxcfvHIKa QYjnI3iqSsKqUEWyzRyhHr vmf5GsBOEvPDTyMsjpsVPz fX0= Clinical Information 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] 8525421782) Gross Description (test y7erhDQrEHUtjRLQYTFeFc code = 3711693686) caqyFxHMCfnRKkZ0Tcnpwu WPnxZF5eUI8uwEhtcQDvvM NbLW4LDPQcAlSuDEZhxAMy nfIxNcMrHMOszAWffJS5VB BnZO9cvnpgJVgcFSwkSXAr ojJ6DHZfyAYvK3BcNJKmAC 7mqnnmEJV1ZMlryZ4qroQU BrxlEo2gkPIyyIoeIgXcGb NoYXJzZXQwXGZuaWwgQXJp UJd6tC0BYfykEAS6IOCLId jmWZBaLI2Jn9nsOEWtbMYe EMN5BLghhEDcBSKnDKLzKF b3ZUNpXJfywVGsTF8mwQay TirxvPwzi3LgjYUpPTntRZ HzDRTyKWucMIOzCJ6FDcOg AEoLCVImMMQtAxP0BCu7AA LGHmQyAyGfHQr3Kja9ZhRe TJt5FZu6DJiAUtLyGZO0Ns XoNhQ1AEI7VZWkJAcjeEIb IFxcZiBBcmlhbCBcXGZzID EyNGpcOxamSEfaQ46hzDyt xU2hCeQtAAMTJqNLFUKIQP 1cjSJpQV2NQMDuLGdmWLBf wQRVVWQ6CE1zLXCHEemghU WtOMFmzCqwXBhsgJ2zLU3T VTa4mvBbNYDmAqPsR8MhS3 glOS6bUKPjrpTkWDRqoAWw ZCBmcmVzaCBhbmQgbGFiZW rxIGE1kSWhCZLhSLThDJDd XH50H9YqnjZiFZhiXAzmep UiTcQdRAJfmAQ7rPfwrSjv i6W0v292VQJlsKKvtUQfHN 4wEETob0ccrYRzSgDzueLa O32sd0tamYFgp1SlXDN0DQ 9dqIumqvEsWVcePH90UA7x JQIcMMepJGPqd8LhEZr8La UwF95eeJ2pbIAaB7LyYGY4 IDQuMiBjbSBpbiBkaWFtZX Gwwskai5n1sVArMSN1x45q RLffHtwzfWBaTzBkE39aMG grklDkWFdxsZlqWYW0gKvx JFHacGBrSzI5QF8yNbJhe6 6rk6oklwFcwsLtANZswCPq mYUaXOPqt9XuwLrykoKxPI DwgN9dIXSpZWTgaJKllA9r biBpcyBvcGVuIHRvIHJldm IleML2CM0zpSetedEzcw6v n6v9WLUzdlKpXNGiFQHkME UulLUls2VyGUBIJROgMLEd zyHvfZz8TXWsQJP6qD9wsu NbxyPdi2PsdUx8yIAhDTjp NGJlEBWsjw57W4ecQKSpUJ BhciANClxwYXIgDQpBMTog tPVauCikTZqyhJMjY8vyEL YnHZTcDYRtvqHmqYv8ROUx kQJwGQ9AVEF7CMW6b82aTA VzXPHmQROmpjQwjTg8LCcr QMIcSLuLJcvbRp54GGuxj7 EpaApgklVlimDtRP02QAEg swXviEFbOI4ZYXIntvENEx C5eIcyTIk2ZOP0CTqeBUB4 tL9jw8rld9SzDzMCd7Yqu2 HiskMwu3L4OYQoeSdsaI8k FD9nozypFGDqDUP7w1YzCF EVICugkChocC7oKCXsZ38o k7XOc9JySEJmSZkkp9ayuI ngd7XcbDMjUMduRKCtjHGw DYdxvT5iBaHzc9dbqEp6BN xsibU5PIVenz3FVgyuuZ9y BvQlm2osmGs7LKBJPkdyfh O0s5kxmVmcw1MgoHDbMG7T Cn0= Disclaimer (test code = [id number] [id number]) FuZzEwMzNcZnRuYmpcdWMx PVmpbbQjOYdow0VgV3MyGt AwMFxhbnNpXGRlZmxhbmcx GOJlUGE0acOuUYIkVDiqOK CbBUptIr7hzZUnkVqqSsHs XWIjd6vturQUTTufLqXgJ8 98KYQmJUdxd1yml9ChBHUt wFYhu3A1BZPArxoikMo9kZ lxA27ao5H3ZwzwN1idKKCj ZZOdR1DkUL4hCBEgHqw5OF M1TWP6FMZjSQHtI3IbTG5a DVBzaHDdFZz2w5rwqWovRP SkJJF9k6gzOUyhywKzMN9l jn2prQs4x1xxdjCuHRYsHB UdtIATDJYmY7YcaMklAx4t pWi8hAsgXwnzDVM3Mqq7BW 1ekl62kyv8gSmeBUEzpenk UiS7DCqyXTDdzoobMIv3FE ktXMXbyFE9XGEtyCRlD0Ro IVKhPX2lmkw5SMT6NTquZG YyKaE5ZBAhbEUhCGIicZqa CJmnf250AUQ0FpIcZH5aI5 Tmk6C5uP7opUUzTFXzbNZq TyJjNUPewy6hrOOiRMtnl3 IyRKD3koC9pMWhoYRxELHx GM79Wpsjk3YuEyglx6WzX1 0wdFR0NKxqu6woFJ6gNjG8 bsBzSCukg0rdiY6iPgW7DL enLD3bXI8kOVQobT8nnjun XHBnYnJkcmhlYWRccGdicm WtEn5hdWjuEJZ4ORujF2jq wG5aUqH6MFxiI6muoO7bFO z3BSsrbLV2HLAcqF5mAE0z mhxac1wkEVlgUZfqZRHhkt O9jlS4XLHvlUJuV6LkbY7a SLClOW5fbpgbm7waXVH1IA npRUPxNXO6VoTxSTHfn0Oj leb2WlNwu2HftGLqTAxsR1 7xl411KFObdhHoV1bfqDJb pdhkaLQdrdlwDLmjpnP3ZB QjouHsw7KbKMCdBME2NMmy BNbggUXfFCKiyQpdd3laZ9 RscGFyXHBsYWluXGYxXGZz MjBcbGFuZzEwMzNcaGljaF yeHVujStPuHADfBMlnR1to WiVlQ6FaUUImRfKxwRPqT8 ggVGhpcyByZXBvcnQgbWF5 DAosF6g9SJWymoOvmRr9qy XvByTbPNKbELT2LTpmoNNb IVVly3CattcsnLVlGi5ucO GjAMXffU2fPAAvEPAhIAwb SA1uxSb5NMNZfPPgpJTjXn CSCOWdZK19stMtXFDWyeyn b4U1GEzkMKWes0OamUXmN4 jhs8TdFOPql26lTK6rc8M2 t0ceREB4KH0rn6VfMDQzrF AicSFfMQZmv9Uymektf4Mn VKWwyrKau1ZjDFMbcrFytH HoDIIregOnvp0zziYyZGMu KVFzD6MhmywtxLjnvgCbBU Dwvd9nuqUeVET5LUQNOHGw OMTzc0AcnP2odAYPPKU5qE Xjvp9agsMXgJQdYUCvuw21 LQSeJH2xR8nmKPVwCXRvjc QljMSaa8XyVHMjeTO8qRGn RO5TWlJNm16wKCDhJGGUjk SaDQMjuUjhsAE5lnG5fR4s IChGREEpLlx+IFRoZSBGRE WaEJ0dqqVsi8YopwVnpSux FYCdcOYym9QapTEki6OopP zyd1BnhDXvdNIrWB4wKIXp clxwYXIgVVRNQiBMYWJvcm D9v3AiGGHcOETqKQB4vNby xxq6ZDKdzW2yHGJjX2dvch dnQOsxBQSln2BovW4awEJN hZZhy9NqmXDehVUSgQQrKV 8odmYtSXeMNRxCGBE0wmJk SWYfz4CoOSsfK5nxG26oxR rzeCx6xQB7SHK0hH8aGui+ IFxwYXJccGFyIEFwcHJvcH OcUAGjiNqoucUyZ5JpkvNr qW5nqESataPgIU9nSG2yQ9 B1vAInIEFdivLnv3fmGQfe dmUgYmVlbiByZXZpZXdlZC Yul5QbBJxhVRU3MZwwinNj bmNsdWRpbmcgSCZFLCBTcG PlnTYeWSV1DStknsYlmlBt PG6kfX9ykTqndN2kwDZxoR B6jwigVEOtOJIitQkpLWFo OY2pjYTfPHAvuxPEbTnbgS XcjO4cT4OzQWIrTMLeuq5h XDEipZ9aTDdcz3EevgtrFX GwVOLwSZAjxzQccw7rOGQj kWVISS3LPQvldAYjm4Ghlq XnJ1vGAMM8ZCRlPcDvXxkd ZUMpgYWnzYDqSKHkno14ZI KstX9ogUulYCPnmT8ecU9n tHtzaJ8mYmFiZxZgIEeiFF 1xBLLsR5uyeYGyOJQjVKUp I2viGeCkvP5ttEseXBafKl DiHlPhINzsGYG1nY== Embedded Images (test code = 4546890389) [facility] - Peripheral [id number] 09:01:06 Test Item Value Reference Range Interpretation Comments Blood Culture-Aerobic No organisms No growth Previo us (test code = 48754-4) isolated prelim inary verified result was Culture In Progress on 08/31/2021 at 060 1 CSTPrevious preliminary verified result was No growth a t 24 hours on 09/01/2021 at 030 1 CSTPrevious preliminary verified result was No growth a t 48 hours on 09/02/2021 at 03 01 CSTPrevious preliminary verified result was No growth a t 72 hours on 09/03/2021 at 03 01 [facility] Blood No organisms No growth Previous Culture-Anaerobic isolated preliminar y (test code = 99476-4) verifi ed result was Culture In Progress on 08/31/2021 at 060 1 CSTPrevious preliminary verified result was No growth a t 24 hours on 09/01/2021 at 030 1 CSTPrevious preliminary verified result was No growth a t 48 hours on 09/02/2021 at 03 01 CSTPrevious preliminary verified result was No growth a t 72 hours on 09/03/2021 at 03 01 [facility] [employer] [facility] Lab Interpretation Normal (test code = 84756-3) [facility] METABOLIC PANEL (NA, K, CL, CO2, GLUCOSE, BUN, CREATININE, CA)2021-09-04 13:22:54 Test Item Value Reference Range Interpretation Comments NA (test code = 132 mmol/L 135-145 L 1198084984) K (test code = 4.3 mmol/L 3.5-5.0 0074451500) CL (test code = 104 mmol/L 98-108 6391016421) CO2 TOTAL (test code = 23 mmol/L 23-31 3304336409) AGAP (test code = 2-16 2788834963) BUN (test code = 15 mg/dL 7-23 2201637734) GLUCOSE (test code = 96 mg/dL 70-110 4660714317) CREATININE (test code = 1.42 mg/dL 0.60-1.25 H 4574512478) CALCIUM (test code = 8.7 mg/dL 8.6-10.6 5912768740) eGFR (test code = mL/min/1.73m2 0091157001) GILBERTO (test code = GILBERTO) Association of [...] tests). Lab Interpretation Abnormal (test code = 39480-3) [facility] METABOLIC PANEL (NA, K, CL, CO2, GLUCOSE, BUN, CREATININE, CA)2021-09-04 13:22:54 Test Item Value Reference Range Interpretation Comments NA (test code = 132 mmol/L 135-145 L 2027850026) K (test code = 4.3 mmol/L 3.5-5.0 3271732346) CL (test code = 104 mmol/L 98-108 3406442671) CO2 TOTAL (test code = 23 mmol/L 23-31 1930097455) AGAP (test code = 2-16 8509067438) BUN (test code = 15 mg/dL 7-23 6109436570) GLUCOSE (test code = 96 mg/dL 70-110 2522652522) CREATININE (test code = 1.42 mg/dL 0.60-1.25 H 8233879138) CALCIUM (test code = 8.7 mg/dL 8.6-10.6 7495713293) eGFR (test code = mL/min/1.73m2 1707831142) GILBERTO (test code = GILBERTO) Association of [...] tests). Lab Interpretation Abnormal (test code = 07106-6) [facility] CULTURE [id number] 17:16:36 Test Item Value Reference Range Interpretation Comments Blood Culture Coagulase negative Addition al Workup (test Staphylococcus work-up perfo rmed code = 600-7) only per reque st. Culture plate(s ) will be saved until this date : 09/08/21 Gram stain Isolated from aerobic (test code = bottle Gram positive 664-3) cocci in [facility] CULTURE [id number] 17:16:36 Test Item Value Reference Range Interpretation Comments Blood Culture Coagulase negative Addition al Workup (test Staphylococcus work-up perfo rmed code = 600-7) only per reque st. Culture plate(s ) will be saved until this date : 09/08/21 Gram stain Isolated from aerobic (test code = bottle Gram positive 664-3) cocci in [facility] Culture - Peripheral Vein # 17:16:26 Test Item Value Reference Range Interpretation Comments Blood Culture-Aerobic Culture positive. No growth AA P revious (test code = 41317-6) See Blood Culture p reliminary Workup for verified result additional was Culture In information. Progress on 08/31/2021 at 060 1 [employer] [employer] Blood No organisms No growth Previous Culture-Anaerobic isolated preliminar y (test code = 68348-7) verifi ed result was Culture In Progress on 09/01/2021 at 012 7 [employer] [facility] Lab Interpretation Abnormal (test code = 47097-3) [facility] Vein # [id number] 17:16:26 Test Item Value Reference Range Interpretation Comments Blood Culture-Aerobic Culture positive. No growth AA P revious (test code = 53238-0) See Blood Culture p reliminary Workup for verified result additional was Culture In information. Progress on 08/31/2021 at 060 1 [employer] Blood No organisms No growth Previous Culture-Anaerobic isolated preliminar y (test code = 84042-8) verifi ed result was Culture In Progress on 09/01/2021 at 012 7 [employer] Lab Interpretation Abnormal (test code = 12101-9) [facility] (NA, K, CL, CO2, GLUCOSE, BUN, CREATININE, CA)2021-09-03 12:16:04 Test Item Value Reference Range Interpretation Comments NA (test code = 130 mmol/L 135-145 L 4344453808) K (test code = 4.1 mmol/L 3.5-5.0 7622103465) CL (test code = 103 mmol/L 98-108 5639630286) CO2 TOTAL (test code = 21 mmol/L 23-31 L 0297453656) AGAP (test code = 2-16 2771963504) BUN (test code = 14 mg/dL 7-23 1467104744) GLUCOSE (test code = 90 mg/dL 70-110 6820312039) CREATININE (test code = 1.28 mg/dL 0.60-1.25 H 5171351202) CALCIUM (test code = 8.8 mg/dL 8.6-10.6 7216981113) eGFR (test code = mL/min/1.73m2 8888925880) GILBERTO (test code = GILBERTO) Association of [...] tests). Lab Interpretation Abnormal (test code = 41647-3) [facility] METABOLIC PANEL (NA, K, CL, CO2, GLUCOSE, BUN, CREATININE, CA)2021-09-03 12:16:04 Test Item Value Reference Range Interpretation Comments NA (test code = 130 mmol/L 135-145 L 0652897886) K (test code = 4.1 mmol/L 3.5-5.0 0287496474) CL (test code = 103 mmol/L 98-108 9476778114) CO2 TOTAL (test code = 21 mmol/L 23-31 L 6450079675) AGAP (test code = 2-16 7343297045) BUN (test code = 14 mg/dL 7-23 7699610104) GLUCOSE (test code = 90 mg/dL 70-110 3019962974) CREATININE (test code = 1.28 mg/dL 0.60-1.25 H 5578264086) CALCIUM (test code = 8.8 mg/dL 8.6-10.6 5987944427) eGFR (test code = mL/min/1.73m2 7583133576) GILBERTO (test code = GILBERTO) Association of [...] tests). Lab Interpretation Abnormal (test code = 51500-5) [facility] WITHOUT [id number] 11:53:39 Test Item Value Reference Range Interpretation Comments WBC (test code = 6690-2) See_Comment [A utomated message] The system [employer]ii[employer] generated this result transmit dain reference range : 4.20 - 10.70 10*3/?L. The reference range was not used to interpret this result as normal/abnormal . RBC (test code = 789-8) See_Comment L [Au tomated message] The system [employer]ii[employer] generated this result transmit dain reference range [...] 777-3) See_Comment [Au tomated message] The system [employer] generated this result transmit dain reference range : 150 - 328 10*3/?L. The reference range was not used to interpret this result as normal/abnormal . MPV (test code = 10.1 fL 9.8-13.0 33960-9) RDW-CV (test code = 13.5 % 12.1-15.4 788-0) RDW-SD (test code = 44.6 fL 38.5-51.6 73356-3) NRBC x10^3 (test code = <0.01 See_Comment [Au tomated message] 3490169706) The system [employer] generated this result transmit dain reference range : 10*3/?L. The reference range was not used to interpret this result as normal/abnormal . NRBC/100 WBC (test code See_Comment [Au tomated message] = 6560980861) The system [facility] generated this result transmit dain reference range : 0.0 - 10.0 /100 WBC s. The reference r meredith was not used to interpret this result as normal/abnormal . IPF % (test code = 6378048542) Lab Interpretation (test Abnormal code = 92206-4) [facility] WITHOUT [id number] 11:53:39 Test Item Value Reference Range Interpretation Comments WBC (test code = 6690-2) See_Comment [A utomated message] The system [facility] generated this result transmit dain reference range : 4.20 - 10.70 10*3/?L. The reference range was not used to interpret this result as normal/abnormal . RBC (test code = 789-8) See_Comment L [Au tomated message] The system [facility] generated this result transmit dain reference [...] 777-3) See_Comment [Au tomated message] The system [employer] generated this result transmit dain reference range : 150 - 328 10*3/?L. The reference range was not used to interpret this result as normal/abnormal . MPV (test code = 10.1 fL 9.8-13.0 87477-0) RDW-CV (test code = 13.5 % 12.1-15.4 788-0) RDW-SD (test code = 44.6 fL 38.5-51.6 89255-6) NRBC x10^3 (test code = <0.01 See_Comment [Au tomated message] 0908381196) The system [employer] generated this result transmit dain reference range : 10*3/?L. The reference range was not used to interpret this result as normal/abnormal . NRBC/100 WBC (test code See_Comment [Au tomated message] = 9106269827) The system [employer] generated this result transmit dain reference range : 0.0 - 10.0 /100 WBC s. The reference r meredith was not used to interpret this result as normal/abnormal . IPF % (test code = 3752387982) Lab Interpretation (test Abnormal code = 92073-7) [facility] METABOLIC PANEL (NA, K, CL, CO2, GLUCOSE, BUN, CREATININE, CA)2021-09-02 12:06:01 Test Item Value Reference Range Interpretation Comments NA (test code = 132 mmol/L 135-145 L 6394640124) K (test code = 4.4 mmol/L 3.5-5.0 3732321100) CL (test code = 106 mmol/L 98-108 2809388745) CO2 TOTAL (test code = 22 mmol/L 23-31 L 6956109206) AGAP (test code = 2-16 9254026683) BUN (test code = 16 mg/dL 7-23 4057669738) GLUCOSE (test code = 83 mg/dL 70-110 6793537409) CREATININE (test code = 1.33 mg/dL 0.60-1.25 H 1917016977) CALCIUM (test code = 8.8 mg/dL 8.6-10.6 5245991420) eGFR (test code = mL/min/1.73m2 3633956995) GILBERTO (test code = GILBERTO) Association of [...] tests). Lab Interpretation Abnormal (test code = 30922-5) [facility] METABOLIC PANEL (NA, K, CL, CO2, GLUCOSE, BUN, CREATININE, CA)2021-09-02 12:06:01 Test Item Value Reference Range Interpretation Comments NA (test code = 132 mmol/L 135-145 L 4094994651) K (test code = 4.4 mmol/L 3.5-5.0 7553409197) CL (test code = 106 mmol/L 98-108 4081083645) CO2 TOTAL (test code = 22 mmol/L 23-31 L 6128130698) AGAP (test code = 2-16 6977626976) BUN (test code = 16 mg/dL 7-23 3627828847) GLUCOSE (test code = 83 mg/dL 70-110 0731521000) CREATININE (test code = 1.33 mg/dL 0.60-1.25 H 5881495324) CALCIUM (test code = 8.8 mg/dL 8.6-10.6 2955976286) eGFR (test code = mL/min/1.73m2 4623368991) GILBERTO (test code = GILBERTO) Association of [...] tests). Lab Interpretation Abnormal (test code = 16490-1) [facility] METABOLIC PANEL (NA, K, CL, CO2, GLUCOSE, BUN, CREATININE, CA)2021-09-01 21:55:22 Test Item Value Reference Range Interpretation Comments NA (test code = 130 mmol/L 135-145 L 8551891766) K (test code = 4.2 mmol/L 3.5-5.0 5343302332) CL (test code = 103 mmol/L 98-108 3003267715) CO2 TOTAL (test code = 20 mmol/L 23-31 L 4456275117) AGAP (test code = 2-16 2559278290) BUN (test code = 20 mg/dL 7-23 0324735307) GLUCOSE (test code = 106 mg/dL 70-110 3128002277) CREATININE (test code = 1.51 mg/dL 0.60-1.25 H 9601655477) CALCIUM (test code = 8.5 mg/dL 8.6-10.6 L 8451292311) eGFR (test code = mL/min/1.73m2 2429199520) GILBERTO (test code = GILBERTO) Association of [...] tests). Lab Interpretation Abnormal (test code = 74650-7) [facility] METABOLIC PANEL (NA, K, CL, CO2, GLUCOSE, BUN, CREATININE, CA)2021-09-01 21:55:22 Test Item Value Reference Range Interpretation Comments NA (test code = 130 mmol/L 135-145 L 3080179212) K (test code = 4.2 mmol/L 3.5-5.0 8377376657) CL (test code = 103 mmol/L 98-108 3638081403) CO2 TOTAL (test code = 20 mmol/L 23-31 L 5392167333) AGAP (test code = 2-16 0412851590) BUN (test code = 20 mg/dL 7-23 0184830366) GLUCOSE (test code = 106 mg/dL 70-110 6815008862) CREATININE (test code = 1.51 mg/dL 0.60-1.25 H 9721706598) CALCIUM (test code = 8.5 mg/dL 8.6-10.6 L 8184576338) eGFR (test code = mL/min/1.73m2 9943559863) GILBERTO (test code = GILBERTO) Association of [...] tests). Lab Interpretation Abnormal (test code = 37963-4) [facility] POSITIVE BLOOD PATHOGENS DNA [id number] 10:31:32 Test Item Value Reference Range Interpretation Comments Coagulase Negative Positive Negative, See A Staphylococcus (test Comment/Narrative code = 38070-1) GILBERTO (test code = GILBERTO) Coagulase negative [...] contact the Antimicrobial Stewardship Program with questions.Pager: ?[phone] Testing included eleven identification and three resistance marker targets. Lab Interpretation Abnormal (test code = 22552-3) [facility] POSITIVE BLOOD PATHOGENS DNA [id number] 10:31:32 Test Item Value Reference Range Interpretation Comments Coagulase Negative Positive Negative, See A Staphylococcus (test Comment/Narrative code = 04622-9) GILBERTO (test code = GILBERTO) Coagulase negative [...] contact the Antimicrobial Stewardship Program with questions.Pager: ?[phone] Testing included eleven identification and three resistance marker targets. Lab Interpretation Abnormal (test code = 98002-2) [facility] METABOLIC PANEL (NA, K, CL, CO2, GLUCOSE, BUN, CREATININE, CA)2021-09-01 08:38:47 Test Item Value Reference Range Interpretation Comments NA (test code = 130 mmol/L 135-145 L 3155028957) K (test code = 4.0 mmol/L 3.5-5.0 7035076049) CL (test code = 105 mmol/L 98-108 4381272768) CO2 TOTAL (test code = 20 mmol/L 23-31 L 5139176942) AGAP (test code = 2-16 7715760541) BUN (test code = 21 mg/dL 7-23 8204251918) GLUCOSE (test code = 88 mg/dL 70-110 9497605466) CREATININE (test code = 1.31 mg/dL 0.60-1.25 H 4342894458) CALCIUM (test code = 8.5 mg/dL 8.6-10.6 L 4916579420) eGFR (test code = mL/min/1.73m2 5201489619) GILBERTO (test code = GILBERTO) Association of [...] tests). Lab Interpretation Abnormal (test code = 25973-8) [facility] METABOLIC PANEL (NA, K, CL, CO2, GLUCOSE, BUN, CREATININE, CA)2021-09-01 08:38:47 Test Item Value Reference Range Interpretation Comments NA (test code = 130 mmol/L 135-145 L 7050331872) K (test code = 4.0 mmol/L 3.5-5.0 0508082098) CL (test code = 105 mmol/L 98-108 9876146475) CO2 TOTAL (test code = 20 mmol/L 23-31 L 4358379106) AGAP (test code = 2-16 6921175095) BUN (test code = 21 mg/dL 7-23 2053178198) GLUCOSE (test code = 88 mg/dL 70-110 5094701484) CREATININE (test code = 1.31 mg/dL 0.60-1.25 H 2642833002) CALCIUM (test code = 8.5 mg/dL 8.6-10.6 L 8325549967) eGFR (test code = mL/min/1.73m2 6818112516) GILBERTO (test code = GILBERTO) Association of [...] tests). Lab Interpretation Abnormal (test code = 81977-8) [facility] WITH [id number] 08:13:43 Test Item Value Reference Range Interpretation Comments WBC (test code = See_Comment [Automated 6314-2) message] The sy stem which generated this result transmitted reference range : 4.20 - 10.70 10*3/?L. The reference range was not used to interpret this result as normal/abnormal . RBC (test code = See_Comment L [Automated 238-8) message] The sy stem which generated this [...] RDW-SD (test code = 43.0 fL 38.5-51.6 07910-5) RDW-CV (test code = 13.7 % 12.1-15.4 788-0) PLT (test code = See_Comment [Automated 777-3) message] The sy stem which generated this result transmitted reference range : 150 - 328 10*3/ ?L. The reference r meredith was not used to interpret this result as normal/abnormal . MPV (test code = 9.9 fL 9.8-13.0 79651-3) NRBC/100 WBC (test See_Comment [Automat ed code = 1433839882) message] The system which generated this result transmitted reference range : 0.0 - 10.0 /100 WBCs. The refer ence range was not u sed to interpret th is result as normal/abnormal . NRBC x10^3 (test code <0.01 See_Comment [Auto mated = 6617017242) message] The s ystem which generated this result transmitted reference range : 10*3/?L. The reference range was not used to interpret this result as normal/abnormal . GRAN MAT (NEUT) % 48.2 % (test code = 770-8) IMM GRAN % (test code 0.40 % = 9833243303) LYMPH % (test code = 39.5 % 736-9) MONO % (test code = 9.0 % 5905-5) EOS % (test code = 2.3 % 713-8) BASO % (test code = 0.6 % 706-2) GRAN MAT x10^3(ANC) 2.35 10*3/uL 1.99-6.95 (test code = 0883918069) IMM GRAN x10^3 (test <0.03 0.00-0.06 code = 4180484860) LYMPH x10^3 (test code 1.93 10*3/uL 1.09-3.23 = 731-0) MONO x10^3 (test code 0.44 10*3/uL 0.36-1.02 = 742-7) EOS x10^3 (test code = 0.11 10*3/uL 0.06-0.53 711-2) BASO x10^3 (test code 0.03 10*3/uL 0.01-0.09 = 704-7) Lab Interpretation Abnormal (test code = 82462-6) [facility] WITH [id number] 08:13:43 Test Item Value Reference Range Interpretation [...] RDW-SD (test code = 43.0 fL 38.5-51.6 52562-4) RDW-CV (test code = 13.7 % 12.1-15.4 788-0) PLT (test code = See_Comment [Automated 777-3) message] The sy stem which generated this result transmitted reference range : 150 - 328 10*3/ ?L. The reference r meredith was not used to interpret this result as normal/abnormal . MPV (test code = 9.9 fL 9.8-13.0 26753-6) NRBC/100 WBC (test See_Comment [Automat ed code = 3377701115) message] The system which generated this result transmitted reference range : 0.0 - 10.0 /100 WBCs. The refer ence range was not u sed to interpret th is result as normal/abnormal . NRBC x10^3 (test code <0.01 See_Comment [Auto mated = 5225445359) message] The s ystem which generated this result transmitted reference range : 10*3/?L. The reference range was not used to interpret this result as normal/abnormal . GRAN MAT (NEUT) % 48.2 % (test code = 770-8) IMM GRAN % (test code 0.40 % = 1453238208) LYMPH % (test code = 39.5 % 736-9) MONO % (test code = 9.0 % 5905-5) EOS % (test code = 2.3 % 713-8) BASO % (test code = 0.6 % 706-2) GRAN MAT x10^3(ANC) 2.35 10*3/uL 1.99-6.95 (test code = 4156467205) IMM GRAN x10^3 (test <0.03 0.00-0.06 code = 2432767060) LYMPH x10^3 (test code 1.93 10*3/uL 1.09-3.23 = 731-0) MONO x10^3 (test code 0.44 10*3/uL 0.36-1.02 = 742-7) EOS x10^3 (test code = 0.11 10*3/uL 0.06-0.53 711-2) BASO x10^3 (test code 0.03 10*3/uL 0.01-0.09 = 704-7) Lab Interpretation Abnormal (test code = 19440-7) [facility] [id number] 06:37:20 Test Item Value Reference Range Interpretation Comments MAGNESIUM (test code = 7783802481) 1.9 mg/dL 1.7-2.4 Lab Interpretation (test code = Normal 40178-3) [facility] [id number] 06:37:20 Test Item Value Reference Range Interpretation Comments MAGNESIUM (test code = 1800364883) 1.9 mg/dL 1.7-2.4 Lab Interpretation (test code = Normal 73341-6) [facility] METABOLIC PANEL (NA, K, CL, CO2, GLUCOSE, BUN, CREATININE, CA)2021-09-01 02:46:47 Test Item Value Reference Range Interpretation Comments NA (test code = 132 mmol/L 135-145 L 7462057523) K (test code = 4.0 mmol/L 3.5-5.0 1644602579) CL (test code = 102 mmol/L 98-108 7951642530) CO2 TOTAL (test code = 21 mmol/L 23-31 L 0102162833) AGAP (test code = 2-16 3029909527) BUN (test code = 24 mg/dL 7-23 H 0295489229) GLUCOSE (test code = 95 mg/dL 70-110 3881184152) CREATININE (test code = 1.40 mg/dL 0.60-1.25 H 5910844272) CALCIUM (test code = 8.6 mg/dL 8.6-10.6 5519718153) eGFR (test code = mL/min/1.73m2 8770075617) GILBERTO (test code = GILBERTO) Association of [...] tests). Lab Interpretation Abnormal (test code = 72727-5) [facility] (NA, K, CL, CO2, GLUCOSE, BUN, CREATININE, CA)2021-09-01 02:46:47 Test Item Value Reference Range Interpretation Comments NA (test code = 132 mmol/L 135-145 L 0839399652) K (test code = 4.0 mmol/L 3.5-5.0 6859563846) CL (test code = 102 mmol/L 98-108 2239756921) CO2 TOTAL (test code = 21 mmol/L 23-31 L 6411130411) AGAP (test code = 2-16 7510735052) BUN (test code = 24 mg/dL 7-23 H 9070406222) GLUCOSE (test code = 95 mg/dL 70-110 9907483268) CREATININE (test code = 1.40 mg/dL 0.60-1.25 H 5237634553) CALCIUM (test code = 8.6 mg/dL 8.6-10.6 6635127760) eGFR (test code = mL/min/1.73m2 7420408165) GILBERTO (test code = GILBERTO) Association of [...] tests). Lab Interpretation Abnormal (test code = 70947-5) [facility] Acid Whole [id number] 12:49:48 Test Item Value Reference Range Interpretation Comments LACTIC ACID (test code = 2.02 mmol/L 0.50-2.20 QUE S 0655051964) Lab Interpretation (test code = Normal 59509-5) [facility] Acid Whole [id number] 12:49:48 Test Item Value Reference Range Interpretation Comments LACTIC ACID (test code = 2.02 mmol/L 0.50-2.20 QUE S 8768232713) Lab Interpretation (test code = Normal 70593-4) [facility] METABOLIC PANEL (NA, K, CL, CO2, GLUCOSE, BUN, CREATININE, CA)2021-08-31 12:29:06 Test Item Value Reference Range Interpretation Comments NA (test code = 129 mmol/L 135-145 L 1501269708) K (test code = 3.6 mmol/L 3.5-5.0 0758776830) CL (test code = 101 mmol/L 98-108 6798792088) CO2 TOTAL (test code = 18 mmol/L 23-31 L 2264453127) AGAP (test code = 2-16 4073459422) BUN (test code = 35 mg/dL 7-23 H 8768278901) GLUCOSE (test code = 97 mg/dL 70-110 5676184367) CREATININE (test code = 1.58 mg/dL 0.60-1.25 H 5911934187) CALCIUM (test code = 8.3 mg/dL 8.6-10.6 L 9478262619) eGFR (test code = mL/min/1.73m2 8848319592) GILBERTO (test code = GILBERTO) Association of [...] tests). Lab Interpretation Abnormal (test code = 72214-9) [facility] METABOLIC PANEL (NA, K, CL, CO2, GLUCOSE, BUN, CREATININE, CA)2021-08-31 12:29:06 Test Item Value Reference Range Interpretation Comments NA (test code = 129 mmol/L 135-145 L 3807855994) K (test code = 3.6 mmol/L 3.5-5.0 1886795252) CL (test code = 101 mmol/L 98-108 8240840483) CO2 TOTAL (test code = 18 mmol/L 23-31 L 1550511791) AGAP (test code = 2-16 4413780693) BUN (test code = 35 mg/dL 7-23 H 5983227185) GLUCOSE (test code = 97 mg/dL 70-110 9146718570) CREATININE (test code = 1.58 mg/dL 0.60-1.25 H 5177396591) CALCIUM (test code = 8.3 mg/dL 8.6-10.6 L 3053249942) eGFR (test code = mL/min/1.73m2 9886985158) GILBERTO (test code = GILBERTO) Association of [...] tests). Lab Interpretation Abnormal (test code = 24481-7) [facility] [id number] 07:42:44 Test Item Value Reference Range Interpretation Comments TSH (test code = See_Comment [Automated message] 5335331257) The system niiu generated this result transmitted ref erence range: 0.45 - 4 .70 mIU/L. The refe rence range was not u sed to interpret this result as normal/abnor mal. Lab Interpretation (test Normal code = 15104-8) [facility] [id number] 07:42:44 Test Item Value Reference Range Interpretation Comments TSH (test code = See_Comment [Automated message] 5862191218) The system niiu generated this result transmitted ref erence range: 0.45 - 4 .70 mIU/L. The refe rence range was not u sed to interpret this result as normal/abnor mal. Lab Interpretation (test Normal code = 67740-7) [facility] METABOLIC PANEL (NA, K, CL, CO2, GLUCOSE, BUN, CREATININE, CA)2021-08-31 07:40:43 Test Item Value Reference Range Interpretation Comments NA (test code = 129 mmol/L 135-145 L 7490602353) K (test code = 3.8 mmol/L 3.5-5.0 Slight 6144277660) hemolysis CL (test code = 102 mmol/L 98-108 0913207208) CO2 TOTAL (test code 18 mmol/L 23-31 L = 9337374608) AGAP (test code = 2-16 6396142052) BUN (test code = 46 mg/dL 7-23 H Slight [id number]) hemolysis GLUCOSE (test code = 100 mg/dL 70-110 9689605494) CREATININE (test code 1.72 mg/dL 0.60-1.25 H = 6453437771) CALCIUM (test code = 8.5 mg/dL 8.6-10.6 L 3053507821) eGFR (test code = mL/min/1.73m2 5502615603) GILBERTO (test code = GILBERTO) Association of [...] tests). Lab Interpretation Abnormal (test code = 82386-0) [facility] METABOLIC PANEL (NA, K, CL, CO2, GLUCOSE, BUN, CREATININE, CA)2021-08-31 07:40:43 Test Item Value Reference Range Interpretation Comments NA (test code = 129 mmol/L 135-145 L [id number]) K (test code = 3.8 mmol/L 3.5-5.0 Slight 9913809890) hemolysis CL (test code = 102 mmol/L 98-108 6473547566) CO2 TOTAL (test code 18 mmol/L 23-31 L = 1474006302) AGAP (test code = 2-16 5060112169) BUN (test code = 46 mg/dL 7-23 H Slight 3314022085) hemolysis GLUCOSE (test code = 100 mg/dL 70-110 4388070296) CREATININE (test code 1.72 mg/dL 0.60-1.25 H = 3634360861) CALCIUM (test code = 8.5 mg/dL 8.6-10.6 L 6162111014) eGFR (test code = mL/min/1.73m2 6697513150) GILBERTO (test code = GILBERTO) Association of [...] tests). Lab Interpretation Abnormal (test code = 00474-9) [facility] Whole [id number] 07:08:01 Test Item Value Reference Range Interpretation Comments LACTIC ACID (test code = 1.96 mmol/L 0.50-2.20 QUE S 9779681474) Lab Interpretation (test code = Normal 09336-0) [facility] America[facility] Acid Whole [id number] 07:08:01 Test Item Value Reference Range Interpretation Comments LACTIC ACID (test code = 1.96 mmol/L 0.50-2.20 QUE S 2708663883) Lab Interpretation (test code = Normal 94980-5) [facility] AmericaOSMOLALITY, SERUM OR [id number] 06:33:43 Test Item Value Reference Range Interpretation Comments OSMOLALITY (test code = See_Comment [Au tomated message] 6779209176) The system niiu generated this result transmitted ref erence range: 278 - 30 5 mOsm/kg. The re ference range was not u sed to interpret this result as normal/abnor mal. Lab Interpretation (test Normal code = 81457-7) [facility] AmericaOSMOLAL[facility], SERUM OR [id number] 06:33:43 Test Item Value Reference Range Interpretation Comments OSMOLALITY (test code = See_Comment [Au tomated message] 6812349959) The system niiu generated this result transmitted ref erence range: 278 - 30 5 mOsm/kg. The re ference range was not u sed to interpret this result as normal/abnor mal. Lab Interpretation (test Normal code = 93807-3) [facility] [id number] 04:28:44 Test Item Value Reference Interpretation Comments Range TROPONIN I (test 0.003 ng/mL See_Comment [Automated code = 4502242365) message] The system which generated this result [...] biotin. Lab Interpretation Normal (test code = 68425-8) [facility] [id number] 04:28:44 Test Item Value Reference Interpretation Comments Range TROPONIN I (test 0.003 ng/mL See_Comment [Automated code = 8861802015) message] The system which generated this result [...] biotin. Lab Interpretation Normal (test code = 82014-4) [facility] METABOLIC PANEL (NA, K, CL, CO2, GLUCOSE, BUN, CREATININE, CA)2021-08-31 04:07:42 Test Item Value Reference Range Interpretation Comments NA (test code = 125 mmol/L 135-145 L 6736757781) K (test code = 4.1 mmol/L 3.5-5.0 Slight 5095071181) hemolysis CL (test code = 100 mmol/L 98-108 7929322251) CO2 TOTAL (test code 17 mmol/L 23-31 L = 9207666373) AGAP (test code = 2-16 4220051286) BUN (test code = 52 mg/dL 7-23 H Slight 8920772877) hemolysis GLUCOSE (test code = 94 mg/dL 70-110 6669913270) CREATININE (test code 1.77 mg/dL 0.60-1.25 H = 3006547824) CALCIUM (test code = 8.2 mg/dL 8.6-10.6 L 8821855642) eGFR (test code = mL/min/1.73m2 1390036738) GILBERTO (test code = GILBERTO) Association of [...] tests). Lab Interpretation Abnormal (test code = 11356-5) [facility] METABOLIC PANEL (NA, K, CL, CO2, GLUCOSE, BUN, CREATININE, CA)2021-08-31 04:07:42 Test Item Value Reference Range Interpretation Comments NA (test code = 125 mmol/L 135-145 L 0604363466) K (test code = 4.1 mmol/L 3.5-5.0 Slight 9194250431) hemolysis CL (test code = 100 mmol/L 98-108 8530466506) CO2 TOTAL (test code 17 mmol/L 23-31 L = 9635089718) AGAP (test code = 2-16 8796238071) BUN (test code = 52 mg/dL 7-23 H Slight 2683257994) hemolysis GLUCOSE (test code = 94 mg/dL 70-110 6637298088) CREATININE (test code 1.77 mg/dL 0.60-1.25 H = 0963302599) CALCIUM (test code = 8.2 mg/dL 8.6-10.6 L 6178904782) eGFR (test code = mL/min/1.73m2 7832273890) GILBERTO (test code = GILBERTO) Association of [...] tests). Lab Interpretation Abnormal (test code = 62999-3) [facility] AmericaTROPONIN [id number] 00:22:59 Test Item Value Reference Interpretation Comments Range TROPONIN I (test 0.003 ng/mL See_Comment [Automated code = 7189770448) message] The system which generated this result [...] biotin. Lab Interpretation Normal (test code = 37577-8) [facility] AmericaN-TERMINAL [id number] 00:22:59 Test Item Value Reference Range Interpretation Comments NT-proBNP (test code 55 pg/mL See_Comment [Autom ated = 8808922686) message] The system which generated this result transmitted reference range : <=125. The reference range was not used to interpret this result as normal/abnormal . GILBERTO (test code = GILBERTO) Biotin has been reported to cause a negative bias, interpret results relative to patient's use of biotin. Lab Interpretation Normal (test code = 45062-3) [facility] AmericaTROPONIN [id number] 00:22:59 Test Item Value Reference Interpretation Comments Range TROPONIN I (test 0.003 ng/mL See_Comment [Automated code = 1951457136) message] The system which generated this result [...] biotin. Lab Interpretation Normal (test code = 72284-9) [facility] AmericaN-TERMINAL [id number] 00:22:59 Test Item Value Reference Range Interpretation Comments NT-proBNP (test code 55 pg/mL See_Comment [Autom ated = 0375528388) message] The system which generated this result transmitted reference range : <=125. The reference range was not used to interpret this result as normal/abnormal . GILBERTO (test code = GILBERTO) Biotin has been reported to cause a negative bias, interpret results relative to patient's use of biotin. Lab Interpretation Normal (test code = 63775-4) [facility] AmericaCOMP. METABOLIC PANEL ([id number])2021-08-31 00:07:17 Test Item Value Reference Range Interpretation Comments NA (test code = 126 mmol/L 135-145 L 7730902614) K (test code = 4.3 mmol/L 3.5-5.0 Slight 2666875475) hemolysis CL (test code = 96 mmol/L 98-108 L 3802447209) CO2 TOTAL (test code 18 mmol/L 23-31 L = 8042414897) AGAP (test code = 2-16 3377557032) BUN (test code = 58 mg/dL 7-23 H Slight 6265918416) hemolysis GLUCOSE (test code = 108 mg/dL 70-110 9126553244) CREATININE (test code 2.11 mg/dL 0.60-1.25 H = 1327474791) TOTAL BILI (test code 0.7 mg/dL 0.1-1.1 = 6633742127) CALCIUM (test code = 9.2 mg/dL 8.6-10.6 4786474120) T PROTEIN (test code 7.6 g/dL 6.3-8.2 = 4938571975) ALBUMIN (test code = 4.9 g/dL 3.5-5.0 6744440634) ALK PHOS (test code = 96 U/L 34-122 Slight 9476124890) hemolysis ALTv (test code = 27 U/L 5-50 1742-6) AST(SGOT) (test code 46 U/L 13-40 H Slight = 5562068054) hemolysis eGFR (test code = mL/min/1.73m2 9025736794) GILBERTO (test code = GILBERTO) Association of [...] tests). Lab Interpretation Abnormal (test code = 90838-7) [facility]. METABOLIC PANEL (77531)2021-08-31 00:07:17 Test Item Value Reference Range Interpretation Comments NA (test code = 126 mmol/L 135-145 L 8001244218) K (test code = 4.3 mmol/L 3.5-5.0 Slight 0562499335) hemolysis CL (test code = 96 mmol/L 98-108 L 3963546835) CO2 TOTAL (test code 18 mmol/L 23-31 L = 4259664435) AGAP (test code = 2-16 7392875354) BUN (test code = 58 mg/dL 7-23 H Slight 3261310318) hemolysis GLUCOSE (test code = 108 mg/dL 70-110 5947804129) CREATININE (test code 2.11 mg/dL 0.60-1.25 H = 9981829495) TOTAL BILI (test code 0.7 mg/dL 0.1-1.1 = 4739228998) CALCIUM (test code = 9.2 mg/dL 8.6-10.6 4469178349) T PROTEIN (test code 7.6 g/dL 6.3-8.2 = 6193935554) ALBUMIN (test code = 4.9 g/dL 3.5-5.0 7817080705) ALK PHOS (test code = 96 U/L 34-122 Slight 7976014592) hemolysis ALTv (test code = 27 U/L 5-50 1742-6) AST(SGOT) (test code 46 U/L 13-40 H Slight = 5440229719) hemolysis eGFR (test code = mL/min/1.73m2 7981255486) GILBERTO (test code = GILBERTO) Association of [...] tests). Lab Interpretation Abnormal (test code = 38353-1) [facility] WITH [id number] 23:36:10 Test Item Value Reference Range Interpretation Comments WBC (test code = See_Comment [Automated 6764-2) message] The sy stem which generated this result transmitted reference range : 4.20 - 10.70 10*3/?L. The reference range was not used to interpret this result as normal/abnormal . RBC (test code = See_Comment [Automated 679-8) message] The sy stem which [...] RDW-SD (test code = 41.7 fL 38.5-51.6 20274-6) RDW-CV (test code = 13.4 % 12.1-15.4 788-0) PLT (test code = See_Comment [Automated 777-3) message] The sy stem which generated this result transmitted reference range : 150 - 328 10*3/ ?L. The reference r meredith was not used to interpret this result as normal/abnormal . MPV (test code = 10.3 fL 9.8-13.0 39814-5) NRBC/100 WBC (test See_Comment [Automat ed code = 8700557058) message] The system which generated this result transmitted reference range : 0.0 - 10.0 /100 WBCs. The refer ence range was not u sed to interpret th is result as normal/abnormal . NRBC x10^3 (test code <0.01 See_Comment [Auto mated = 4721235265) message] The s ystem which generated this result transmitted reference range : 10*3/?L. The reference range was not used to interpret this result as normal/abnormal . GRAN MAT (NEUT) % 60.6 % (test code = 770-8) IMM GRAN % (test code 0.30 % = 5461528883) LYMPH % (test code = 29.1 % 736-9) MONO % (test code = 8.8 % 5905-5) EOS % (test code = 0.6 % 713-8) BASO % (test code = 0.6 % 706-2) GRAN MAT x10^3(ANC) 4.08 10*3/uL 1.99-6.95 (test code = 0499585528) IMM GRAN x10^3 (test <0.03 0.00-0.06 code = 5992998245) LYMPH x10^3 (test code 1.96 10*3/uL 1.09-3.23 = 731-0) MONO x10^3 (test code 0.59 10*3/uL 0.36-1.02 = 742-7) EOS x10^3 (test code = 0.04 10*3/uL 0.06-0.53 L 711-2) BASO x10^3 (test code 0.04 10*3/uL 0.01-0.09 = 704-7) Lab Interpretation Abnormal (test code = 10416-0) [facility] WITH [id number] 23:36:10 Test Item Value Reference Range Interpretation [...] RDW-SD (test code = 41.7 fL 38.5-51.6 65864-2) RDW-CV (test code = 13.4 % 12.1-15.4 788-0) PLT (test code = See_Comment [Automated 777-3) message] The sy stem which generated this result transmitted reference range : 150 - 328 10*3/ ?L. The reference r meredith was not used to interpret this result as normal/abnormal . MPV (test code = 10.3 fL 9.8-13.0 34166-9) NRBC/100 WBC (test See_Comment [Automat ed code = 9850593935) message] The system which generated this result transmitted reference range : 0.0 - 10.0 /100 WBCs. The refer ence range was not u sed to interpret th is result as normal/abnormal . NRBC x10^3 (test code <0.01 See_Comment [Auto mated = 4394261037) message] The s ystem which generated this result transmitted reference range : 10*3/?L. The reference range was not used to interpret this result as normal/abnormal . GRAN MAT (NEUT) % 60.6 % (test code = 770-8) IMM GRAN % (test code 0.30 % = 8189777590) LYMPH % (test code = 29.1 % 736-9) MONO % (test code = 8.8 % 5905-5) EOS % (test code = 0.6 % 713-8) BASO % (test code = 0.6 % 706-2) GRAN MAT x10^3(ANC) 4.08 10*3/uL 1.99-6.95 (test code = 8200420748) IMM GRAN x10^3 (test <0.03 0.00-0.06 code = 4023898313) LYMPH x10^3 (test code 1.96 10*3/uL 1.09-3.23 = 731-0) MONO x10^3 (test code 0.59 10*3/uL 0.36-1.02 = 742-7) EOS x10^3 (test code = 0.04 10*3/uL 0.06-0.53 L 711-2) BASO x10^3 (test code 0.04 10*3/uL 0.01-0.09 = 704-7) Lab Interpretation Abnormal (test code = 23270-9) [facility] America[facility] RAPID STREP SCREEN FOR GROUP [id number] 00:24:00 Test Item Value Reference Range Interpretation Comments POCT GP A STREP (test code = Negative Negative - Negative 83444-6) Lab Interpretation (test code = Normal 19223-2) [facility]2021-12-13 11:38:43 Test Item Value Reference Range Interpretation Comments PALB (test code = 73946-0) 25.2 mg/dL 18.0-45.0 Lab Interpretation (test code = Normal 09155-7) [facility] America[facility] METABOLIC PANEL (NA, K, CL, CO2, GLUCOSE, BUN, CREATININE, CA)2021-08-05 11:30:59 Test Item Value Reference Range Interpretation Comments NA (test code = 140 mmol/L 135-145 8600672353) K (test code = 4.2 mmol/L 3.5-5.0 6599624478) CL (test code = 110 mmol/L 98-108 H 4828221599) CO2 TOTAL (test code = 27 mmol/L 23-31 6793704762) AGAP (test code = 2-16 0553965403) BUN (test code = 9 mg/dL 7-23 8990412948) GLUCOSE (test code = 86 mg/dL 70-110 0888912565) CREATININE (test code = 1.51 mg/dL 0.60-1.25 H 4517437956) CALCIUM (test code = 8.5 mg/dL 8.6-10.6 L 9868253858) eGFR (test code = mL/min/1.73m2 1307667191) GILBERTO (test code = GILBERTO) Association of [...] tests). Lab Interpretation Abnormal (test code = 35181-5) [facility] 11:30[facility]59 Test Item Value Reference Range Interpretation Comments MAGNESIUM (test code = 1012242256) 2.0 mg/dL 1.7-2.4 Lab Interpretation (test code = Normal 99657-1) [facility]2021-12-13 11:30:59 Test Item Value Reference Range Interpretation Comments PHOSPHORUS (test code = 8669241108) 5.1 mg/dL 2.5-5.0 H Lab Interpretation (test code = Abnormal 53512-0) [facility]2021-[facility]-13 11:30:59 Test Item Value Reference Range Interpretation Comments ALBUMIN (test code = 4177315804) 3.1 g/dL 3.5-5.0 L Lab Interpretation (test code = Abnormal 47711-2) [facility] WITH [id number] 11:05:58 Test Item Value Reference Range Interpretation Comments WBC (test code = See_Comment L [Automated 4590-2) message] The sy stem which [...] RDW-SD (test code = 47.5 fL 38.5-51.6 15445-6) RDW-CV (test code = 14.0 % 12.1-15.4 788-0) PLT (test code = See_Comment [Automated 777-3) message] The sy stem which generated this result transmitted reference range : 150 - 328 10*3/ ?L. The reference r meredith was not used to interpret this result as normal/abnormal . MPV (test code = 9.5 fL 9.8-13.0 L 10066-3) NRBC/100 WBC (test See_Comment [Automat ed code = 5373380309) message] The system which generated this result transmitted reference range : 0.0 - 10.0 /100 WBCs. The refer ence range was not u sed to interpret th is result as normal/abnormal . NRBC x10^3 (test code <0.01 See_Comment [Auto mated = 6722040485) message] The s ystem which generated this result transmitted reference range : 10*3/?L. The reference range was not used to interpret this result as normal/abnormal . GRAN MAT (NEUT) % 52.5 % (test code = 770-8) IMM GRAN % (test code 0.30 % = 2420677622) LYMPH % (test code = 31.1 % 736-9) MONO % (test code = 11.7 % 5905-5) EOS % (test code = 3.9 % 713-8) BASO % (test code = 0.5 % 706-2) GRAN MAT x10^3(ANC) 2.03 10*3/uL 1.99-6.95 (test code = 3127761392) IMM GRAN x10^3 (test <0.03 0.00-0.06 code = 1752713647) LYMPH x10^3 (test code 1.20 10*3/uL 1.09-3.23 = 731-0) MONO x10^3 (test code 0.45 10*3/uL 0.36-1.02 = 742-7) EOS x10^3 (test code = 0.15 10*3/uL 0.06-0.53 711-2) BASO x10^3 (test code <0.03 0.01-0.09 = 704-7) Lab Interpretation Abnormal (test code = 17507-2) [facility] WITH [id number] 12:30:17 Test Item Value Reference Range Interpretation [...] RDW-SD (test code = 49.2 fL 38.5-51.6 32832-7) RDW-CV (test code = 14.3 % 12.1-15.4 788-0) PLT (test code = See_Comment [Automated 777-3) message] The sy stem which generated this result transmitted reference range : 150 - 328 10*3/ ?L. The reference r meredith was not used to interpret this result as normal/abnormal . MPV (test code = 9.2 fL 9.8-13.0 L 68679-2) NRBC/100 WBC (test See_Comment [Automat ed code = 2010090086) message] The system which generated this result transmitted reference range : 0.0 - 10.0 /100 WBCs. The refer ence range was not u sed to interpret th is result as normal/abnormal . NRBC x10^3 (test code <0.01 See_Comment [Auto mated = 9079103657) message] The s ystem which generated this result transmitted reference range : 10*3/?L. The reference range was not used to interpret this result as normal/abnormal . GRAN MAT (NEUT) % 47.2 % (test code = 770-8) IMM GRAN % (test code 0.30 % = 6098499783) LYMPH % (test code = 36.0 % 736-9) MONO % (test code = 12.6 % 5905-5) EOS % (test code = 3.4 % 713-8) BASO % (test code = 0.5 % 706-2) GRAN MAT x10^3(ANC) 1.80 10*3/uL 1.99-6.95 L (test code = 7942557813) IMM GRAN x10^3 (test <0.03 0.00-0.06 code = 2752251397) LYMPH x10^3 (test code 1.37 10*3/uL 1.09-3.23 = 731-0) MONO x10^3 (test code 0.48 10*3/uL 0.36-1.02 = 742-7) EOS x10^3 (test code = 0.13 10*3/uL 0.06-0.53 711-2) BASO x10^3 (test code <0.03 0.01-0.09 = 704-7) Lab Interpretation Abnormal (test code = 87213-4) [facility] METABOLIC PANEL (NA, K, CL, CO2, GLUCOSE, BUN, CREATININE, CA)2021-08-04 12:17:48 Test Item Value Reference Range Interpretation Comments NA (test code = 139 mmol/L 135-145 0140211455) K (test code = 4.3 mmol/L 3.5-5.0 6240237578) CL (test code = 110 mmol/L 98-108 H 7183924179) CO2 TOTAL (test code = 26 mmol/L 23-31 4362803878) AGAP (test code = 2-16 5462747927) BUN (test code = 8 mg/dL 7-23 0843239850) GLUCOSE (test code = 87 mg/dL 70-110 1448617392) CREATININE (test code = 1.50 mg/dL 0.60-1.25 H 2532502930) CALCIUM (test code = 8.4 mg/dL 8.6-10.6 L 2179103849) eGFR (test code = mL/min/1.73m2 4255305008) GILBERTO (test code = GILBERTO) Association of [...] tests). Lab Interpretation Abnormal (test code = 15316-0) [facility] 12:17:48 Test Item Value Reference Range Interpretation Comments MAGNESIUM (test code = 1192864337) 1.9 mg/dL 1.7-2.4 Lab Interpretation (test code = Normal 35237-2) [facility]2021-[facility]-12 12:17:48 Test Item Value Reference Range Interpretation Comments PHOSPHORUS (test code = 5288665086) 4.6 mg/dL 2.5-5.0 Lab Interpretation (test code = Normal 65645-8) [facility] WITH [id number] 11:23:38 Test Item Value Reference Range Interpretation [...] RDW-SD (test code = 47.8 fL 38.5-51.6 27396-8) RDW-CV (test code = 14.1 % 12.1-15.4 788-0) PLT (test code = See_Comment [Automated 777-3) message] The sy stem which generated this result transmitted reference range : 150 - 328 10*3/ ?L. The reference r meredith was not used to interpret this result as normal/abnormal . MPV (test code = 9.3 fL 9.8-13.0 L 66918-9) NRBC/100 WBC (test See_Comment [Automat ed code = 8964377692) message] The system which generated this result transmitted reference range : 0.0 - 10.0 /100 WBCs. The refer ence range was not u sed to interpret th is result as normal/abnormal . NRBC x10^3 (test code <0.01 See_Comment [Auto mated = 2921979805) message] The s ystem which generated this result transmitted reference range : 10*3/?L. The reference range was not used to interpret this result as normal/abnormal . GRAN MAT (NEUT) % 49.3 % (test code = 770-8) IMM GRAN % (test code 0.30 % = 5636045277) LYMPH % (test code = 34.6 % 736-9) MONO % (test code = 12.0 % 5905-5) EOS % (test code = 3.3 % 713-8) BASO % (test code = 0.5 % 706-2) GRAN MAT x10^3(ANC) 1.97 10*3/uL 1.99-6.95 L (test code = 4862397679) IMM GRAN x10^3 (test <0.03 0.00-0.06 code = 0954236373) LYMPH x10^3 (test code 1.38 10*3/uL 1.09-3.23 = 731-0) MONO x10^3 (test code 0.48 10*3/uL 0.36-1.02 = 742-7) EOS x10^3 (test code = 0.13 10*3/uL 0.06-0.53 711-2) BASO x10^3 (test code <0.03 0.01-0.09 = 704-7) Lab Interpretation Abnormal (test code = 39676-1) [facility] METABOLIC PANEL (NA, K, CL, CO2, GLUCOSE, BUN, CREATININE, CA)2021-08-03 11:18:55 Test Item Value Reference Range Interpretation Comments NA (test code = 139 mmol/L 135-145 6763668052) K (test code = 4.1 mmol/L 3.5-5.0 8577190190) CL (test code = 110 mmol/L 98-108 H 4765453318) CO2 TOTAL (test code = 27 mmol/L 23-31 9764334598) AGAP (test code = 2-16 6147233500) BUN (test code = 8 mg/dL 7-23 3404196985) GLUCOSE (test code = 93 mg/dL 70-110 1463173779) CREATININE (test code = 1.39 mg/dL 0.60-1.25 H 4755109831) CALCIUM (test code = 8.1 mg/dL 8.6-10.6 L 1459373546) eGFR (test code = mL/min/1.73m2 2464065737) GILBERTO (test code = GILBERTO) Association of [...] tests). Lab Interpretation Abnormal (test code = 55343-1) [facility] 11:18:55 Test Item Value Reference Range Interpretation Comments MAGNESIUM (test code = 4388670366) 2.0 mg/dL 1.7-2.4 Lab Interpretation (test code = Normal 47176-9) [facility]2021[facility]11 11:18:55 Test Item Value Reference Range Interpretation Comments PHOSPHORUS (test code = 0902643634) 3.8 mg/dL 2.5-5.0 Lab Interpretation (test code = Normal 52733-4) [facility] (NA, K, CL, CO2, GLUCOSE, BUN, CREATININE, CA)2021-08-02 14:06:51 Test Item Value Reference Range Interpretation Comments NA (test code = 137 mmol/L 135-145 5745982184) K (test code = 4.4 mmol/L 3.5-5.0 3181882746) CL (test code = 108 mmol/L 98-108 8228249767) CO2 TOTAL (test code = 24 mmol/L 23-31 4220818605) AGAP (test code = 2-16 0313544077) BUN (test code = 10 mg/dL 7-23 9228949266) GLUCOSE (test code = 83 mg/dL 70-110 9220605243) CREATININE (test code = 1.48 mg/dL 0.60-1.25 H 1876747795) CALCIUM (test code = 8.4 mg/dL 8.6-10.6 L 3953209048) eGFR (test code = mL/min/1.73m2 2162994097) GILBERTO (test code = GILBERTO) Association of [...] tests). Lab Interpretation Abnormal (test code = 13776-8) [facility]2021-[facility]-10 14:06:51 Test Item Value Reference Range Interpretation Comments MAGNESIUM (test code = 9364348276) 2.1 mg/dL 1.7-2.4 Lab Interpretation (test code = Normal 76911-5) [facility]21[facility] 14:06:51 Test Item Value Reference Range Interpretation Comments PHOSPHORUS (test code = 0446048220) 4.6 mg/dL 2.5-5.0 Lab Interpretation (test code = Normal 43129-1) [facility] [id number] 12:30:05 Test Item Value Reference Range Interpretation [...] RDW-SD (test code = 48.6 fL 38.5-51.6 70448-8) RDW-CV (test code = 14.3 % 12.1-15.4 788-0) PLT (test code = See_Comment [Automated 777-3) message] The sy stem which generated this result transmitted reference range : 150 - 328 10*3/ ?L. The reference r meredith was not used to interpret this result as normal/abnormal . MPV (test code = 10.0 fL 9.8-13.0 76469-0) NRBC/100 WBC (test See_Comment [Automat ed code = 8800031998) message] The system which generated this result transmitted reference range : 0.0 - 10.0 /100 WBCs. The refer ence range was not u sed to interpret th is result as normal/abnormal . NRBC x10^3 (test code <0.01 See_Comment [Auto mated = 0519467119) message] The s ystem which generated this result transmitted reference range : 10*3/?L. The reference range was not used to interpret this result as normal/abnormal . GRAN MAT (NEUT) % 51.9 % (test code = 770-8) IMM GRAN % (test code 0.60 % = [id number]) LYMPH % (test code = 32.7 % 736-9) MONO % (test code = 11.3 % 5905-5) EOS % (test code = 3.2 % 713-8) BASO % (test code = 0.3 % 706-2) GRAN MAT x10^3(ANC) 1.80 10*3/uL 1.99-6.95 L (test code = [id number]) IMM GRAN x10^3 (test <0.03 0.00-0.06 code = [id number]) LYMPH x10^3 (test code 1.13 10*3/uL 1.09-3.23 = 731-0) MONO x10^3 (test code 0.39 10*3/uL 0.36-1.02 = 742-7) EOS x10^3 (test code = 0.11 10*3/uL 0.06-0.53 711-2) BASO x10^3 (test code <0.03 0.01-0.09 = 704-7) Lab Interpretation Abnormal (test code = 24452-6) [facility] WITH [id number] 10:44:18 Test Item Value Reference Range Interpretation Comments WBC (test code = See_Comment L [Automated 5290-2) message] The sy stem which [...] RDW-SD (test code = 48.0 fL 38.5-51.6 33601-7) RDW-CV (test code = 14.1 % 12.1-15.4 788-0) PLT (test code = See_Comment [Automated 777-3) message] The sy stem which generated this result transmitted reference range : 150 - 328 10*3/ ?L. The reference r meredith was not used to interpret this result as normal/abnormal . MPV (test code = 9.5 fL 9.8-13.0 L 92165-8) NRBC/100 WBC (test See_Comment [Automat ed code = [id number]) message] The system which generated this result transmitted reference range : 0.0 - 10.0 /100 WBCs. The refer ence range was not u sed to interpret th is result as normal/abnormal . NRBC x10^3 (test code <0.01 See_Comment [Auto mated = 7481487403) message] The s ystem which generated this result transmitted reference range : 10*3/?L. The reference range was not used to interpret this result as normal/abnormal . GRAN MAT (NEUT) % 50.8 % (test code = 770-8) IMM GRAN % (test code 0.30 % = 6108884249) LYMPH % (test code = 34.6 % 736-9) MONO % (test code = 10.3 % 5905-5) EOS % (test code = 3.7 % 713-8) BASO % (test code = 0.3 % 706-2) GRAN MAT x10^3(ANC) 1.78 10*3/uL 1.99-6.95 L (test code = 6139974897) IMM GRAN x10^3 (test <0.03 0.00-0.06 code = 7940704854) LYMPH x10^3 (test code 1.21 10*3/uL 1.09-3.23 = 731-0) MONO x10^3 (test code 0.36 10*3/uL 0.36-1.02 = 742-7) EOS x10^3 (test code = 0.13 10*3/uL 0.06-0.53 711-2) BASO x10^3 (test code <0.03 0.01-0.09 = 704-7) Lab Interpretation Abnormal (test code = 64052-1) [facility] METABOLIC PANEL (NA, K, CL, CO2, GLUCOSE, BUN, CREATININE, CA)2021-08-01 10:25:17 Test Item Value Reference Range Interpretation Comments NA (test code = 138 mmol/L 135-145 8029360267) K (test code = 4.1 mmol/L 3.5-5.0 8932463811) CL (test code = 105 mmol/L 98-108 2769501241) CO2 TOTAL (test code = 28 mmol/L 23-31 3218272560) AGAP (test code = 2-16 8449234032) BUN (test code = 13 mg/dL 7-23 1676869497) GLUCOSE (test code = 86 mg/dL 70-110 1750840986) CREATININE (test code = 1.46 mg/dL 0.60-1.25 H 6739322888) CALCIUM (test code = 8.7 mg/dL 8.6-10.6 0574529936) eGFR (test code = mL/min/1.73m2 0709925627) GILBERTO (test code = GILBERTO) Association of [...] tests). Lab Interpretation Abnormal (test code = 01787-9) [facility] 10:25:17 Test Item Value Reference Range Interpretation Comments MAGNESIUM (test code = 3861417287) 1.6 mg/dL 1.7-2.4 L Lab Interpretation (test code = Abnormal 39746-9) [facility] 10:25:17 Test Item Value Reference Range Interpretation Comments PHOSPHORUS (test code = 8633290259) 4.1 mg/dL 2.5-5.0 Lab Interpretation (test code = Normal 75096-0) [facility]21[facility]08 16:18:34 Test Item Value Reference Range Interpretation Comments PALB (test code = 81207-4) 24.3 mg/dL 18.0-45.0 Lab Interpretation (test code = Normal 93957-5) [facility] WITH [id number] 11:20:19 Test Item Value Reference Range Interpretation [...] RDW-SD (test code = 49.6 fL 38.5-51.6 24314-4) RDW-CV (test code = 14.6 % 12.1-15.4 788-0) PLT (test code = See_Comment [Automated 777-3) message] The sy stem which generated this result transmitted reference range : 150 - 328 10*3/ ?L. The reference r meredith was not used to interpret this result as normal/abnormal . MPV (test code = 9.6 fL 9.8-13.0 L 00702-4) NRBC/100 WBC (test See_Comment [Automat ed code = 6218549244) message] The system which generated this result transmitted reference range : 0.0 - 10.0 /100 WBCs. The refer ence range was not u sed to interpret th is result as normal/abnormal . NRBC x10^3 (test code <0.01 See_Comment [Auto mated = 9367424420) message] The s ystem which generated this result transmitted reference range : 10*3/?L. The reference range was not used to interpret this result as normal/abnormal . GRAN MAT (NEUT) % 49.1 % (test code = 770-8) IMM GRAN % (test code 0.30 % = 8967106854) LYMPH % (test code = 36.0 % 736-9) MONO % (test code = 10.6 % 5905-5) EOS % (test code = 3.4 % 713-8) BASO % (test code = 0.6 % 706-2) GRAN MAT x10^3(ANC) 1.76 10*3/uL 1.99-6.95 L (test code = 0632260924) IMM GRAN x10^3 (test <0.03 0.00-0.06 code = 1127600136) LYMPH x10^3 (test code 1.29 10*3/uL 1.09-3.23 = 731-0) MONO x10^3 (test code 0.38 10*3/uL 0.36-1.02 = 742-7) EOS x10^3 (test code = 0.12 10*3/uL 0.06-0.53 711-2) BASO x10^3 (test code <0.03 0.01-0.09 = 704-7) Lab Interpretation Abnormal (test code = 10783-2) [facility] METABOLIC PANEL (NA, K, CL, CO2, GLUCOSE, BUN, CREATININE, CA)2021-07-31 11:11:17 Test Item Value Reference Range Interpretation Comments NA (test code = 135 mmol/L 135-145 0527463957) K (test code = 3.8 mmol/L 3.5-5.0 2805667538) CL (test code = 108 mmol/L 98-108 2327931124) CO2 TOTAL (test code = 24 mmol/L 23-31 7167030151) AGAP (test code = 2-16 6159433772) BUN (test code = 13 mg/dL 7-23 7725202930) GLUCOSE (test code = 88 mg/dL 70-110 1621818465) CREATININE (test code = 1.32 mg/dL 0.60-1.25 H 6289817583) CALCIUM (test code = 8.4 mg/dL 8.6-10.6 L 2068900512) eGFR (test code = mL/min/1.73m2 8150959656) GILBERTO (test code = GILBERTO) Association of [...] tests). Lab Interpretation Abnormal (test code = 93878-6) [facility] 11:11:17 Test Item Value Reference Range Interpretation Comments MAGNESIUM (test code = 7312989864) 1.8 mg/dL 1.7-2.4 Lab Interpretation (test code = Normal 36794-4) [facility]2021-[facility]-08 11:11:17 Test Item Value Reference Range Interpretation Comments PHOSPHORUS (test code = 5978962132) 4.0 mg/dL 2.5-5.0 Lab Interpretation (test code = Normal 34594-8) [facility] (01595)2021-07-30 03:46:32 Test Item Value Reference Range Interpretation Comments NA (test code = 132 mmol/L 135-145 L 5854153577) K (test code = 4.4 mmol/L 3.5-5.0 8103688520) CL (test code = 102 mmol/L 98-108 1754652317) CO2 TOTAL (test code = 24 mmol/L 23-31 5157981773) AGAP (test code = 2-16 9390379118) BUN (test code = 21 mg/dL 7-23 0179808121) GLUCOSE (test code = 95 mg/dL 70-110 0813173047) CREATININE (test code = 1.76 mg/dL 0.60-1.25 H 4824342148) TOTAL BILI (test code = 0.7 mg/dL 0.1-1.9 7614223979) CALCIUM (test code = 8.8 mg/dL 8.6-10.6 7908743148) T PROTEIN (test code = 6.0 g/dL 6.3-8.2 L 9571514186) ALBUMIN (test code = 3.8 g/dL 3.5-5.0 6321306407) ALK PHOS (test code = 67 U/L 34-122 8255710985) ALTv (test code = 47 U/L 5-50 1742-6) AST(SGOT) (test code = 39 U/L 13-40 6481612723) eGFR (test code = mL/min/1.73m2 0423597052) GILBERTO (test code = GILBERTO) Association of [...] tests). Lab Interpretation Abnormal (test code = 65813-0) [facility]21[facility] 03:19:26 Test Item Value Reference Range Interpretation Comments LIPASE (test code = 2914004322) 58 U/L 0-220 Lab Interpretation (test code = Normal 21837-9) [facility] WITH [id number] 03:07:20 Test Item Value Reference Range Interpretation [...] RDW-SD (test code = 47.4 fL 38.5-51.6 27683-9) RDW-CV (test code = 14.2 % 12.1-15.4 788-0) PLT (test code = See_Comment [Automated 777-3) message] The sy stem which generated this result transmitted reference range : 150 - 328 10*3/ ?L. The reference r meredith was not used to interpret this result as normal/abnormal . MPV (test code = 9.9 fL 9.8-13.0 96485-3) NRBC/100 WBC (test See_Comment [Automat ed code = 3201419935) message] The system which generated this result transmitted reference range : 0.0 - 10.0 /100 WBCs. The refer ence range was not u sed to interpret th is result as normal/abnormal . NRBC x10^3 (test code <0.01 See_Comment [Auto mated = 0142051832) message] The s ystem which generated this result transmitted reference range : 10*3/?L. The reference range was not used to interpret this result as normal/abnormal . GRAN MAT (NEUT) % 61.1 % (test code = 770-8) IMM GRAN % (test code 0.20 % = 7860418505) LYMPH % (test code = 24.4 % 736-9) MONO % (test code = 11.8 % 5905-5) EOS % (test code = 2.2 % 713-8) BASO % (test code = 0.3 % 706-2) GRAN MAT x10^3(ANC) 3.98 10*3/uL 1.99-6.95 (test code = 7581753873) IMM GRAN x10^3 (test <0.03 0.00-0.06 code = 8286033783) LYMPH x10^3 (test code 1.59 10*3/uL 1.09-3.23 = 731-0) MONO x10^3 (test code 0.77 10*3/uL 0.36-1.02 = 742-7) EOS x10^3 (test code = 0.14 10*3/uL 0.06-0.53 711-2) BASO x10^3 (test code <0.03 0.01-0.09 = 704-7) Lab Interpretation Abnormal (test code = 19372-9) [facility] America[facility] Whole [id number] 03:00:47 Test Item Value Reference Range Interpretation Comments LACTIC ACID (test code = 1.45 mmol/L 0.50-2.20 QUE S 8470261647) Lab Interpretation (test code = Normal 84072-1) [facility]OL[facility] [id number] 11:51:00 Test Item Value Reference Range Interpretation [...] Units/L 50.0-136.0 N code = ALKP) PROTHROMBIN [id number] 11:41:00 Test Item Value Reference Range Interpretation Comments PROTHROMBIN TIME 10.9 SECONDS 9.9-12.8 N PATIENT (test code = PTP) INTERNATIONAL NORMAL 0.9 0.89-1.14 N THE INR IS TO BE USED RATIO (test code = ONLY FOR MONITORING INR) ORAL ANTICOAGULANTTH ERAPY. THE FOLLOWING A RE SUGG[facility]ED [facility]:ROOPA CATION [...] D ANTIBODIES 2.5 - 3.5 CBC W/AUTO [id number] 11:36:00 Test Item Value Reference Range Interpretation [...] NA (test code = 137 mmol/L 135-145 7595032389) K (test code = 4.2 mmol/L 3.5-5.0 1443118026) CL (test code = 109 mmol/L 98-108 H 6460288445) CO2 TOTAL (test code = 25 mmol/L 23-31 6311229673) AGAP (test code = 2-16 1512146608) BUN (test code = 11 mg/dL 7-23 4872923171) GLUCOSE (test code = 83 mg/dL 70-110 7792048478) CREATININE (test code = 1.40 mg/dL 0.60-1.25 H 3317321072) CALCIUM (test code = 8.6 mg/dL 8.6-10.6 9309693987) eGFR (test code = mL/min/1.73m2 9434529812) GILBERTO (test code = GILBERTO) Association of [...] tests). Lab Interpretation Abnormal (test code = 50294-6) [facility]2021-[facility]-03 13:15:26 Test Item Value Reference Range Interpretation Comments MAGNESIUM (test code = 0630003149) 1.6 mg/dL 1.7-2.4 L Lab Interpretation (test code = Abnormal 21121-0) [facility]2021-[facility]-03 13:15:26 Test Item Value Reference Range Interpretation Comments PHOSPHORUS (test code = 6371204833) 3.5 mg/dL 2.5-5.0 Lab Interpretation (test code = Normal 78145-4) [facility] WITH [id number] 12:50:41 Test Item Value Reference Range Interpretation Comments WBC (test code = See_Comment [Automated 7857-2) message] The sy stem which generated this result transmitted reference range : 4.20 - 10.70 10*3/?L. The reference range was not used to interpret this result as normal/abnormal . RBC (test code = See_Comment L [Automated 446-6) message] The sy stem which generated this [...] RDW-SD (test code = 46.7 fL 38.5-51.6 81886-9) RDW-CV (test code = 14.3 % 12.1-15.4 788-0) PLT (test code = See_Comment [Automated 777-3) message] The sy stem which generated this result transmitted reference range : 150 - 328 10*3/ ?L. The reference r meredith was not used to interpret this result as normal/abnormal . MPV (test code = 9.6 fL 9.8-13.0 L 13370-0) NRBC/100 WBC (test See_Comment [Automat ed code = 8127967058) message] The system which generated this result transmitted reference range : 0.0 - 10.0 /100 WBCs. The refer ence range was not u sed to interpret th is result as normal/abnormal . NRBC x10^3 (test code <0.01 See_Comment [Auto mated = 3964447832) message] The s ystem which generated this result transmitted reference range : 10*3/?L. The reference range was not used to interpret this result as normal/abnormal . GRAN MAT (NEUT) % 52.7 % (test code = 770-8) IMM GRAN % (test code 0.40 % = 5578240859) LYMPH % (test code = 33.7 % 736-9) MONO % (test code = 10.4 % 5905-5) EOS % (test code = 2.4 % 713-8) BASO % (test code = 0.4 % 706-2) GRAN MAT x10^3(ANC) 2.65 10*3/uL 1.99-6.95 (test code = 9517898885) IMM GRAN x10^3 (test <0.03 0.00-0.06 code = 6953808848) LYMPH x10^3 (test code 1.69 10*3/uL 1.09-3.23 = 731-0) MONO x10^3 (test code 0.52 10*3/uL 0.36-1.02 = 742-7) EOS x10^3 (test code = 0.12 10*3/uL 0.06-0.53 711-2) BASO x10^3 (test code <0.03 0.01-0.09 = 704-7) Lab Interpretation Abnormal (test code = 43139-1) [facility]2021-[facility]-02 12:35:59 Test Item Value Reference Range Interpretation Comments MAGNESIUM (test code = 8125963532) 1.6 mg/dL 1.7-2.4 L Lab Interpretation (test code = Abnormal 05369-8) [facility]21[facility] 12:35:59 Test Item Value Reference Range Interpretation Comments PHOSPHORUS (test code = 0737523533) 4.0 mg/dL 2.5-5.0 Lab Interpretation (test code = Normal 47889-6) [facility] METABOLIC PANEL (NA, K, CL, CO2, GLUCOSE, BUN, CREATININE, CA)2021-07-25 12:09:12 Test Item Value Reference Range Interpretation Comments NA (test code = 139 mmol/L 135-145 1780190313) K (test code = 4.1 mmol/L 3.5-5.0 8185252823) CL (test code = 111 mmol/L 98-108 H 6507838270) CO2 TOTAL (test code = 25 mmol/L 23-31 5271104292) AGAP (test code = 2-16 2626146742) BUN (test code = 13 mg/dL 7-23 2111282483) GLUCOSE (test code = 86 mg/dL 70-110 6405885240) CREATININE (test code = 1.43 mg/dL 0.60-1.25 H 7731184618) CALCIUM (test code = 8.4 mg/dL 8.6-10.6 L 9571230530) eGFR (test code = mL/min/1.73m2 8412463084) GILBERTO (test code = GILBERTO) Association of [...] tests). Lab Interpretation Abnormal (test code = 73863-5) [facility] WITH [id number] 11:44:33 Test Item Value Reference Range Interpretation Comments WBC (test code = See_Comment [Automated 0274-2) message] The sy stem which generated this [...] RDW-SD (test code = 48.9 fL 38.5-51.6 96416-0) RDW-CV (test code = 14.3 % 12.1-15.4 788-0) PLT (test code = See_Comment [Automated 777-3) message] The sy stem which generated this result transmitted reference range : 150 - 328 10*3/ ?L. The reference r meredith was not used to interpret this result as normal/abnormal . MPV (test code = 9.6 fL 9.8-13.0 L 86654-6) NRBC/100 WBC (test See_Comment [Automat ed code = 3871083653) message] The system which generated this result transmitted reference range : 0.0 - 10.0 /100 WBCs. The refer ence range was not u sed to interpret th is result as normal/abnormal . NRBC x10^3 (test code <0.01 See_Comment [Auto mated = 6033370831) message] The s ystem which generated this result transmitted reference range : 10*3/?L. The reference range was not used to interpret this result as normal/abnormal . GRAN MAT (NEUT) % 50.0 % (test code = 770-8) IMM GRAN % (test code 0.20 % = 5061881947) LYMPH % (test code = 36.7 % 736-9) MONO % (test code = 10.0 % 5905-5) EOS % (test code = 2.6 % 713-8) BASO % (test code = 0.5 % 706-2) GRAN MAT x10^3(ANC) 2.11 10*3/uL 1.99-6.95 (test code = 4025120775) IMM GRAN x10^3 (test <0.03 0.00-0.06 code = 2639315610) LYMPH x10^3 (test code 1.55 10*3/uL 1.09-3.23 = 731-0) MONO x10^3 (test code 0.42 10*3/uL 0.36-1.02 = 742-7) EOS x10^3 (test code = 0.11 10*3/uL 0.06-0.53 711-2) BASO x10^3 (test code <0.03 0.01-0.09 = 704-7) Lab Interpretation Abnormal (test code = 34665-0) [facility] WITH [id number] 04:23:56 Test Item Value Reference Range Interpretation [...] RDW-SD (test code = 49.0 fL 38.5-51.6 77510-1) RDW-CV (test code = 14.4 % 12.1-15.4 788-0) PLT (test code = See_Comment [Automated 777-3) message] The sy stem which generated this result transmitted reference range : 150 - 328 10*3/ ?L. The reference r meredith was not used to interpret this result as normal/abnormal . MPV (test code = 9.5 fL 9.8-13.0 L 40846-7) NRBC/100 WBC (test See_Comment [Automat ed code = 7316080655) message] The system which generated this result transmitted reference range : 0.0 - 10.0 /100 WBCs. The refer ence range was not u sed to interpret th is result as normal/abnormal . NRBC x10^3 (test code <0.01 See_Comment [Auto mated = 8712417948) message] The s ystem which generated this result transmitted reference range : 10*3/?L. The reference range was not used to interpret this result as normal/abnormal . GRAN MAT (NEUT) % 49.9 % (test code = 770-8) IMM GRAN % (test code 0.20 % = 0675532586) LYMPH % (test code = 35.2 % 736-9) MONO % (test code = 11.7 % 5905-5) EOS % (test code = 2.4 % 713-8) BASO % (test code = 0.6 % 706-2) GRAN MAT x10^3(ANC) 2.31 10*3/uL 1.99-6.95 (test code = 8821329003) IMM GRAN x10^3 (test <0.03 0.00-0.06 code = 4245018990) LYMPH x10^3 (test code 1.63 10*3/uL 1.09-3.23 = 731-0) MONO x10^3 (test code 0.54 10*3/uL 0.36-1.02 = 742-7) EOS x10^3 (test code = 0.11 10*3/uL 0.06-0.53 711-2) BASO x10^3 (test code 0.03 10*3/uL 0.01-0.09 = 704-7) Lab Interpretation Abnormal (test code = 47846-0) [facility] METABOLIC PANEL (NA, K, CL, CO2, GLUCOSE, BUN, CREATININE, CA)2021-07-24 12:55:24 Test Item Value Reference Range Interpretation Comments NA (test code = 135 mmol/L 135-145 8770631503) K (test code = 4.0 mmol/L 3.5-5.0 3998452376) CL (test code = 109 mmol/L 98-108 H 9454430588) CO2 TOTAL (test code = 22 mmol/L 23-31 L 2158303398) AGAP (test code = 2-16 1306449839) BUN (test code = 12 mg/dL 7-23 2285196194) GLUCOSE (test code = 102 mg/dL 70-110 3436974691) CREATININE (test code = 1.27 mg/dL 0.60-1.25 H 7984359834) CALCIUM (test code = 8.6 mg/dL 8.6-10.6 6587410403) eGFR (test code = mL/min/1.73m2 8748789379) GILBERTO (test code = GILBERTO) Association of [...] tests). Lab Interpretation Abnormal (test code = 77830-4) [facility] 12:55:24 Test Item Value Reference Range Interpretation Comments MAGNESIUM (test code = 5389006814) 1.7 mg/dL 1.7-2.4 Lab Interpretation (test code = Normal 16323-5) [facility]21-[facility]01 12:55:24 Test Item Value Reference Range Interpretation Comments PHOSPHORUS (test code = 0047464254) 3.1 mg/dL 2.5-5.0 Lab Interpretation (test code = Normal 54994-7) [facility] Metabolic Panel (NA, K, CL, CO2, Glucose, BUN, Creatinine, CA)2021-07-23 13:27:55 Test Item Value Reference Range Interpretation Comments NA (test code = 134 mmol/L 135-145 L 0808423810) K (test code = 3.8 mmol/L 3.5-5.0 9148054088) CL (test code = 107 mmol/L 98-108 9240803371) CO2 TOTAL (test code = 21 mmol/L 23-31 L 8083926445) AGAP (test code = 2-16 6177387143) BUN (test code = 18 mg/dL 7-23 5463027401) GLUCOSE (test code = 120 mg/dL 70-110 H 4581671458) CREATININE (test code = 1.46 mg/dL 0.60-1.25 H 5253903339) CALCIUM (test code = 8.7 mg/dL 8.6-10.6 4312228647) eGFR (test code = mL/min/1.73m2 7058084142) GILBERTO (test code = GILBERTO) Association of [...] tests). Lab Interpretation Abnormal (test code = 86336-4) [facility]2021-[facility]-30 13:27:55 Test Item Value Reference Range Interpretation Comments MAGNESIUM (test code = 7792866093) 1.9 mg/dL 1.7-2.4 Lab Interpretation (test code = Normal 91083-0) [facility]21[facility]30 13:27:55 Test Item Value Reference Range Interpretation Comments PHOSPHORUS (test code = 3625033370) 3.5 mg/dL 2.5-5.0 Lab Interpretation (test code = Normal 47594-8) [facility] with [id number] 13:06:55 Test Item Value Reference Range Interpretation [...] RDW-SD (test code = 47.8 fL 38.5-51.6 61236-6) RDW-CV (test code = 14.4 % 12.1-15.4 788-0) PLT (test code = See_Comment [Automated 777-3) message] The sy stem which generated this result transmitted reference range : 150 - 328 10*3/ ?L. The reference r meredith was not used to interpret this result as normal/abnormal . MPV (test code = 9.4 fL 9.8-13.0 L 52853-5) NRBC/100 WBC (test See_Comment [Automat ed code = 7408926319) message] The system which generated this result transmitted reference range : 0.0 - 10.0 /100 WBCs. The refer ence range was not u sed to interpret th is result as normal/abnormal . NRBC x10^3 (test code <0.01 See_Comment [Auto mated = 1985880009) message] The s ystem which generated this result transmitted reference range : 10*3/?L. The reference range was not used to interpret this result as normal/abnormal . GRAN MAT (NEUT) % 54.7 % (test code = 770-8) IMM GRAN % (test code 0.40 % = 1334061672) LYMPH % (test code = 33.3 % 736-9) MONO % (test code = 9.4 % 5905-5) EOS % (test code = 1.8 % 713-8) BASO % (test code = 0.4 % 706-2) GRAN MAT x10^3(ANC) 2.78 10*3/uL 1.99-6.95 (test code = 9511715722) IMM GRAN x10^3 (test <0.03 0.00-0.06 code = 0930577282) LYMPH x10^3 (test code 1.69 10*3/uL 1.09-3.23 = 731-0) MONO x10^3 (test code 0.48 10*3/uL 0.36-1.02 = 742-7) EOS x10^3 (test code = 0.09 10*3/uL 0.06-0.53 711-2) BASO x10^3 (test code <0.03 0.01-0.09 = 704-7) Lab Interpretation Abnormal (test code = 40297-6) [facility]/AUTO [id number] 09:48:00 Test Item Value Reference Range Interpretation [...] = MX#) 0.8 k/mm3 0.1-0.8 N GLUCOSE [id number] 06:12:00 Test Item Value Reference Range Interpretation Comments GLUCOSE BEDSIDE (test 129 MG/DL 70-110 H Perfor med by certified code = GLUBED) 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 [facility] BASIC METABOLIC [id number] 05:21:00 Test Item Value Reference Range Interpretation [...] (test code = POCGLU) 92 MG/DL GLUCOSE [id number] 05:19:00 Test Item Value Reference Range Interpretation Comments GLUCOSE BEDSIDE (test 51 MG/DL 70-110 L [facility] med by certified code = GLUBED) 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 [facility] CBC W/AUTO [id number] 14:00:00 Test Item Value Reference Range Interpretation [...] MX#) 0.2 k/mm3 0.1-0.8 N CBC W/AUTO [id number] 00:07:00 Test Item Value Reference Range Interpretation [...] = LY#) 2.4 K/uL 1.0-3.8 N LIVER [id number] 16:14:00 Test Item Value Reference Range Interpretation Comments TOTAL PROTEIN (test code 7.5 GM/DL 5.0-8.0 N Per formed by = PROT) 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 [facility] ALBUMIN (test code = 3.9 [...] 65 UNITS/L 25-125 N LYNDSEY) BASIC METABOLIC [id number] 16:07:00 Test Item Value Reference Range Interpretation [...] POCGLU) 96 MG/DL - XR CHEST 1 [id number] 00:00:00 [facility] : 1970 Sex: MFAX: Sabi Urias MD [phone] [place]: [place] St: PRE Name: DORA MCNEILL HOANG Erazo FSED : 1970 Age/S: 51/M [address] [facility] Unit #: [id number] Loc: [place] [address] Phys: Sabi Urias MD Acct: [id number] Dis Date: Status: PRE ER PHONE #: Exam Date: 06/27/2021 5756 FAX #: Reason: Abdominal PainEXAMS: CPT CODE: [id number] XR CHEST 1 V 44426 PROCEDURE INFORMATION: Exam: XR Chest Exam date [...] By: [email or web address] Orig Print D/T: S: 06/27/2021 (1551) PAGE 1 Signed Report- CT ABD PELVIS W/[id number] 00:00:00 [facility] MC[facility]ILL DORA HOANG : 1970 Sex: MName: DORA MCNEILL FSED : 1970 Age/S: 51 / M [address] [facility] Unit #: [id number] Loc: [place] [id number] Phys: Sabi Urias MD Acct: [id number] Dis Date: Status: REG ER PHONE #: Exam Date: 06/27/2021 7527 FAX #: Reason: pain in region of colostomy EXAMS: CPT CODE: [id number] CT ABD PELVIS W/CONT 90325 PROCEDURE INFORMATION: Exam: CT Abdomen And Pelvis [...] : 1970 Age/S: 51 / M [address] [facility] Unit #: [id number] Loc: [place] [address] Phys: Sabi Urias MD Acct: [id number] Dis Date: Status: REG ER PHONE #: Exam Date: 06/27/2021 1625 FAX #: Reason: pain in region of colostomy EXAMS: CPT CODE: [id number] CT ABD PELVIS W/CONT 40207 <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 There is no [...] (test code = 133 mmol/L 135-145 L [id number]) K (test code = 3.7 mmol/L 3.5-5.0 4882734249) CL (test code = 108 mmol/L 98-108 8326994555) CO2 TOTAL (test code = 20 mmol/L 23-31 L 4792195283) AGAP (test code = 2-16 8113345631) BUN (test code = 11 mg/dL 7-23 5983044135) GLUCOSE (test code = 82 mg/dL 70-110 7371820726) CREATININE (test code = 0.96 mg/dL 0.60-1.25 4937669383) CALCIUM (test code = 8.6 mg/dL 8.6-10.6 9428679623) eGFR (test code = mL/min/1.73m2 2287909310) GILBERTO (test code = GILBERTO) Association of [...] tests). Lab Interpretation Abnormal (test code = 34552-9) [facility] METABOLIC PANEL (NA, K, CL, CO2, GLUCOSE, BUN, CREATININE, CA)2021-06-02 11:45:25 Test Item Value Reference Range Interpretation Comments NA (test code = 133 mmol/L 135-145 L 6462115160) K (test code = 3.7 mmol/L 3.5-5.0 0805788969) CL (test code = 111 mmol/L 98-108 H 2038129973) CO2 TOTAL (test code = 17 mmol/L 23-31 L 8744979177) AGAP (test code = 2-16 5897739080) BUN (test code = 15 mg/dL 7-23 8495889039) GLUCOSE (test code = 88 mg/dL 70-110 9710765100) CREATININE (test code = 0.96 mg/dL 0.60-1.25 9292524673) CALCIUM (test code = 8.1 mg/dL 8.6-10.6 L 8184811719) eGFR (test code = mL/min/1.73m2 9657424150) GILBERTO (test code = GILBERTO) Association of [...] tests). Lab Interpretation Abnormal (test code = 92933-4) [facility] METABOLIC PANEL (NA, K, CL, CO2, GLUCOSE, BUN, CREATININE, CA)2021-06-01 17:06:47 Test Item Value Reference Range Interpretation Comments NA (test code = 131 mmol/L 135-145 L 2622221911) K (test code = 3.9 mmol/L 3.5-5.0 Slight 1845178627) hemolysis CL (test code = 108 mmol/L 98-108 4425178889) CO2 TOTAL (test code 15 mmol/L 23-31 L = 3941267535) AGAP (test code = 2-16 1576219265) BUN (test code = 26 mg/dL 7-23 H Slight 0110685813) hemolysis GLUCOSE (test code = 85 mg/dL 70-110 0973731682) CREATININE (test code 1.26 mg/dL 0.60-1.25 H = 9423877893) CALCIUM (test code = 8.1 mg/dL 8.6-10.6 L 9930852812) eGFR (test code = mL/min/1.73m2 8966693820) GILBERTO (test code = GILBERTO) Association of [...] tests). Lab Interpretation Abnormal (test code = 12360-3) [facility] [id number] 05:45:35 Test Item Value Reference Range Interpretation Comments LACTIC ACID (test code = 0.67 mmol/L 0.50-2.20 6190011673) Lab Interpretation (test code = Normal 90777-2) [facility] [id number] 23:44:55 Test Item Value Reference Interpretation Comments Range TROPONIN I (test 0.004 ng/mL See_Comment [Automated code = 8979870099) message] The system which generated this result [...] biotin. Lab Interpretation Normal (test code = 47561-7) [facility] 23:33:28 Test Item Value Reference Range Interpretation Comments LIPASE (test code = 1208489295) 386 U/L 0-220 H Lab Interpretation (test code = Abnormal 92147-4) [facility]OL[facility] (36147)2021-05-31 23:33:28 Test Item Value Reference Range Interpretation Comments NA (test code = 128 mmol/L 135-145 L 3289334151) K (test code = 4.2 mmol/L 3.5-5.0 4255840598) CL (test code = 102 mmol/L 98-108 6414969164) CO2 TOTAL (test code = 13 mmol/L 23-31 L 1420978587) AGAP (test code = 2-16 0035976953) BUN (test code = 47 mg/dL 7-23 H 9815492086) GLUCOSE (test code = 106 mg/dL 70-110 7545664763) CREATININE (test code = 2.38 mg/dL 0.60-1.25 H 8006493100) TOTAL BILI (test code = 0.6 mg/dL 0.1-1.4 1937857794) CALCIUM (test code = 9.5 mg/dL 8.6-10.6 7375893231) T PROTEIN (test code = 7.3 g/dL 6.3-8.2 2548336506) ALBUMIN (test code = 4.6 g/dL 3.5-5.0 3054431502) ALK PHOS (test code = 110 U/L 34-122 6827443365) ALTv (test code = 29 U/L 5-50 1742-6) AST(SGOT) (test code = 33 U/L 13-40 3193283637) eGFR (test code = mL/min/1.73m2 0699354427) GILBERTO (test code = GILBERTO) Association of [...] tests). Lab Interpretation Abnormal (test code = 13465-7) [facility] WITH [id number] 22:57:06 Test Item Value Reference Range Interpretation [...] RDW-SD (test code = 43.2 fL 38.5-51.6 32147-8) RDW-CV (test code = 13.7 % 12.1-15.4 788-0) PLT (test code = See_Comment [Automated 777-3) message] The sy stem which generated this result transmitted reference range : 150 - 328 10*3/ ?L. The reference r meredith was not used to interpret this result as normal/abnormal . MPV (test code = 10.1 fL 9.8-13.0 24325-4) NRBC/100 WBC (test See_Comment [Automat ed code = 3693264865) message] The system which generated this result transmitted reference range : 0.0 - 10.0 /100 WBCs. The refer ence range was not u sed to interpret th is result as normal/abnormal . NRBC x10^3 (test code <0.01 See_Comment [Auto mated = 8888901386) message] The s ystem which generated this result transmitted reference range : 10*3/?L. The reference range was not used to interpret this result as normal/abnormal . GRAN MAT (NEUT) % 68.1 % (test code = 770-8) IMM GRAN % (test code 0.40 % = 1812458660) LYMPH % (test code = 21.9 % 736-9) MONO % (test code = 8.9 % 5905-5) EOS % (test code = 0.3 % 713-8) BASO % (test code = 0.4 % 706-2) GRAN MAT x10^3(ANC) 5.38 10*3/uL 1.99-6.95 (test code = 3496790938) IMM GRAN x10^3 (test 0.03 10*3/uL 0.00-0.06 code = 1537910164) LYMPH x10^3 (test code 1.73 10*3/uL 1.09-3.23 = 731-0) MONO x10^3 (test code 0.70 10*3/uL 0.36-1.02 = 742-7) EOS x10^3 (test code = <0.03 0.06-0.53 L 711-2) BASO x10^3 (test code 0.03 10*3/uL 0.01-0.09 = 704-7) Lab Interpretation Abnormal (test code = 57609-1) [facility]2021-09-28 09:49:03 Test Item Value Reference Range Interpretation Comments MAGNESIUM (test code = 0864096991) 2.0 mg/dL 1.7-2.4 Lab Interpretation (test code = Normal 60069-9) [facility] AmericaPHOSPHORUS2021-09-28 09:49:03 Test Item Value Reference Range Interpretation Comments PHOSPHORUS (test code = 2874950025) 4.0 mg/dL 2.5-5.0 Lab Interpretation (test code = Normal 06805-5) [facility] America[facility] Met[facility] (NA, K, CL, CO2, GLUCOSE, BUN, CREATININE, CA)2021-05-21 09:49:03 Test Item Value Reference Range Interpretation Comments NA (test code = 132 mmol/L 135-145 L 6778243860) K (test code = 4.3 mmol/L 3.5-5.0 5767222248) CL (test code = 105 mmol/L 98-108 1034012297) CO2 TOTAL (test code = 21 mmol/L 23-31 L 2546107779) AGAP (test code = 2-16 1222074329) BUN (test code = 25 mg/dL 7-23 H 1735516461) GLUCOSE (test code = 98 mg/dL 70-110 3452027316) CREATININE (test code = 1.20 mg/dL 0.60-1.25 3002518554) CALCIUM (test code = 8.4 mg/dL 8.6-10.6 L 2960573234) eGFR (test code = mL/min/1.73m2 4575456991) GILBERTO (test code = GILBERTO) Association of [...] tests). Lab Interpretation Abnormal (test code = 38353-6) [facility] with Bpxotwxsaetv5600-90-47 09:22:22 Test Item Value Reference Range Interpretation [...] RDW-SD (test code = 45.6 fL 38.5-51.6 37200-2) RDW-CV (test code = 13.7 % 12.1-15.4 788-0) PLT (test code = See_Comment [Automated 777-3) message] The sy stem which generated this result transmitted reference range : 150 - 328 10*3/ ?L. The reference r meredith was not used to interpret this result as normal/abnormal . MPV (test code = 9.7 fL 9.8-13.0 L 73396-2) NRBC/100 WBC (test See_Comment [Automat ed code = 8562310932) message] The system which generated this result transmitted reference range : 0.0 - 10.0 /100 WBCs. The refer ence range was not u sed to interpret th is result as normal/abnormal . NRBC x10^3 (test code <0.01 See_Comment [Auto mated = 2298825533) message] The s ystem which generated this result transmitted reference range : 10*3/?L. The reference range was not used to interpret this result as normal/abnormal . GRAN MAT (NEUT) % 49.4 % (test code = 770-8) IMM GRAN % (test code 0.60 % = 6266207600) LYMPH % (test code = 35.2 % 736-9) MONO % (test code = 11.9 % 5905-5) EOS % (test code = 2.1 % 713-8) BASO % (test code = 0.8 % 706-2) GRAN MAT x10^3(ANC) 2.33 10*3/uL 1.99-6.95 (test code = 7905939388) IMM GRAN x10^3 (test 0.03 10*3/uL 0.00-0.06 code = 8604717428) LYMPH x10^3 (test code 1.66 10*3/uL 1.09-3.23 = 731-0) MONO x10^3 (test code 0.56 10*3/uL 0.36-1.02 = 742-7) EOS x10^3 (test code = 0.10 10*3/uL 0.06-0.53 711-2) BASO x10^3 (test code 0.04 10*3/uL 0.01-0.09 = 704-7) Lab Interpretation Abnormal (test code = 16549-6) [facility] 20:21:19 Test Item Value Reference Range Interpretation Comments LIPASE (test code = 3823095362) 307 U/L 0-220 H Lab Interpretation (test code = Abnormal 10924-0) [facility] METABOLIC PANEL (75311)2021-05-20 20:21:19 Test Item Value Reference Range Interpretation Comments NA (test code = 132 mmol/L 135-145 L 5600823666) K (test code = 4.3 mmol/L 3.5-5.0 0338501472) CL (test code = 100 mmol/L 98-108 1702864566) CO2 TOTAL (test code = 18 mmol/L 23-31 L 6418407587) AGAP (test code = 2-16 2799273347) BUN (test code = 32 mg/dL 7-23 H 1779292869) GLUCOSE (test code = 100 mg/dL 70-110 3430689202) CREATININE (test code = 1.76 mg/dL 0.60-1.25 H 2762058187) TOTAL BILI (test code = 0.7 mg/dL 0.1-1.5 3685646581) CALCIUM (test code = 9.6 mg/dL 8.6-10.6 1402295297) T PROTEIN (test code = 7.5 g/dL 6.3-8.2 7415399113) ALBUMIN (test code = 4.7 g/dL 3.5-5.0 2557457580) ALK PHOS (test code = 104 U/L 34-122 0058145270) ALTv (test code = 23 U/L 5-50 1742-6) AST(SGOT) (test code = 29 U/L 13-40 2931072361) eGFR (test code = mL/min/1.73m2 0852925765) GILBERTO (test code = GILBERTO) Association of [...] tests). Lab Interpretation Abnormal (test code = 54953-6) [facility] WITH [id number] 20:15:39 Test Item Value Reference Range Interpretation Comments WBC (test code = See_Comment [Automated message] 6690-2) The system niiu generated this result transmitted ref erence range: 4.20 - 1 0.70 10*3/?L. The re ference range was not u sed to interpret this result as normal/abnor mal. RBC (test code = See_Comment [Automated message] 789-8) The system niiu generated this result transmitted ref erence range: [...] RDW-SD (test code 44.8 fL 38.5-51.6 = 21418-4) RDW-CV (test code 13.7 % 12.1-15.4 = 788-0) PLT (test code = See_Comment [Automated message] 777-3) The system niiu generated this result transmitted ref erence range: 150 - 32 8 10*3/?L. The re ference range was not u sed to interpret this result as normal/abnor mal. MPV (test code = 9.8 fL 9.8-13.0 31957-8) NRBC/100 WBC (test See_Comment [Automat ed message] code = 7527499444) The syste m which generated this result transmitted ref erence range: 0.0 - 10 .0 /100 WBCs. The refer ence range was not u sed to interpret this result as normal/abnor mal. NRBC x10^3 (test <0.01 See_Comment [Automated message] code = 7345714043) The syste m which generated this result transmitted ref erence range: 10*3/?L. The reference range was not used to interpr et this result as normal/abnormal . GRAN MAT (NEUT) % 55.9 % (test code = 770-8) IMM GRAN % (test 0.40 % code = 8882375034) LYMPH % (test code 32.5 % = 736-9) MONO % (test code 9.4 % = 5905-5) EOS % (test code = 1.2 % 713-8) BASO % (test code 0.6 % = 706-2) GRAN MAT 3.87 10*3/uL 1.99-6.95 x10^3(ANC) (test code = 0135480065) IMM GRAN x10^3 0.03 10*3/uL 0.00-0.06 (test code = 2336615797) LYMPH x10^3 (test 2.25 10*3/uL 1.09-3.23 code = 731-0) MONO x10^3 (test 0.65 10*3/uL 0.36-1.02 code = 742-7) EOS x10^3 (test 0.08 10*3/uL 0.06-0.53 code = 711-2) BASO x10^3 (test 0.04 10*3/uL 0.01-0.09 code = 704-7) [facility] AmericaL[facility] Acid Whole [id number] 20:07:57 Test Item Value Reference Range Interpretation Comments LACTIC ACID (test code = 1.81 mmol/L 0.50-2.20 5364271547) Lab Interpretation (test code = Normal 57048-0) [facility] (NA, K, CL, CO2, GLUCOSE, BUN, CREATININE, CA)2021-05-08 10:32:35 Test Item Value Reference Range Interpretation Comments NA (test code = 135 mmol/L 135-145 3179832032) K (test code = 4.2 mmol/L 3.5-5.0 4280576488) CL (test code = 106 mmol/L 98-108 6492959227) CO2 TOTAL (test code 23 mmol/L 23-31 = 1678397856) AGAP (test code = 2-16 6121021262) BUN (test code = 22 mg/dL 7-23 3987049013) GLUCOSE (test code = 87 mg/dL 70-110 7405750262) CREATININE (test code 1.21 mg/dL 0.60-1.25 = 0738979861) CALCIUM (test code = 8.7 mg/dL 8.6-10.6 2063379949) eGFR (test code = mL/min/1.73m2 2911681955) GILBRETO (test code = GILBERTO) Association of [...] or urine or abnormalities in imaging tests). [facility] Metabolic Panel (NA, K, CL, CO2, GLUCOSE, BUN, CREATININE, CA)2021-05-08 10:32:35 Test Item Value Reference Range Interpretation Comments NA (test code = 135 mmol/L 135-145 9478172219) K (test code = 4.2 mmol/L 3.5-5.0 5243537483) CL (test code = 106 mmol/L 98-108 3054595615) CO2 TOTAL (test code 23 mmol/L 23-31 = 7098542303) AGAP (test code = 2-16 5555334660) BUN (test code = 22 mg/dL 7-23 7541257990) GLUCOSE (test code = 87 mg/dL 70-110 9424185581) CREATININE (test code 1.21 mg/dL 0.60-1.25 = 8185880938) CALCIUM (test code = 8.7 mg/dL 8.6-10.6 5983378144) eGFR (test code = mL/min/1.73m2 4322351237) GILBERTO (test code = GILBERTO) Association of [...] or urine or abnormalities in imaging tests). [facility] with Csfcivgvobvp7406-76-01 10:12:52 Test Item Value Reference Range Interpretation Comments WBC (test code = See_Comment [Automated 6990-2) message] The sy stem which [...] RDW-SD (test code = 48.4 fL 38.5-51.6 48747-6) RDW-CV (test code = 14.0 % 12.1-15.4 788-0) PLT (test code = See_Comment [Automated 777-3) message] The sy stem which generated this result transmitted reference range : 150 - 328 10*3/ ?L. The reference r meredith was not used to interpret this result as normal/abnormal . MPV (test code = 9.6 fL 9.8-13.0 L 05620-9) NRBC/100 WBC (test See_Comment [Automat ed code = 4892020799) message] The system which generated this result transmitted reference range : 0.0 - 10.0 /100 WBCs. The refer ence range was not u sed to interpret th is result as normal/abnormal . NRBC x10^3 (test code <0.01 See_Comment [Auto mated = 4512249418) message] The s ystem which generated this result transmitted reference range : 10*3/?L. The reference range was not used to interpret this result as normal/abnormal . GRAN MAT (NEUT) % 55.6 % (test code = 770-8) IMM GRAN % (test code 0.20 % = 0246681183) LYMPH % (test code = 31.5 % 736-9) MONO % (test code = 9.9 % 5905-5) EOS % (test code = 2.0 % 713-8) BASO % (test code = 0.8 % 706-2) GRAN MAT x10^3(ANC) 2.76 10*3/uL 1.99-6.95 (test code = 0687523605) IMM GRAN x10^3 (test <0.03 0.00-0.06 code = 1063891235) LYMPH x10^3 (test code 1.56 10*3/uL 1.09-3.23 = 731-0) MONO x10^3 (test code 0.49 10*3/uL 0.36-1.02 = 742-7) EOS x10^3 (test code = 0.10 10*3/uL 0.06-0.53 711-2) BASO x10^3 (test code 0.04 10*3/uL 0.01-0.09 = 704-7) Lab Interpretation Abnormal (test code = 29409-6) [facility] with [id number] 10:12:52 Test Item Value Reference Range Interpretation [...] RDW-SD (test code = 48.4 fL 38.5-51.6 05602-2) RDW-CV (test code = 14.0 % 12.1-15.4 788-0) PLT (test code = See_Comment [Automated 777-3) message] The sy stem which generated this result transmitted reference range : 150 - 328 10*3/ ?L. The reference r meredith was not used to interpret this result as normal/abnormal . MPV (test code = 9.6 fL 9.8-13.0 L 18120-5) NRBC/100 WBC (test See_Comment [Automat ed code = 5079161148) message] The system which generated this result transmitted reference range : 0.0 - 10.0 /100 WBCs. The refer ence range was not u sed to interpret th is result as normal/abnormal . NRBC x10^3 (test code <0.01 See_Comment [Auto mated = 2622476911) message] The s ystem which generated this result transmitted reference range : 10*3/?L. The reference range was not used to interpret this result as normal/abnormal . GRAN MAT (NEUT) % 55.6 % (test code = 770-8) IMM GRAN % (test code 0.20 % = 7616026312) LYMPH % (test code = 31.5 % 736-9) MONO % (test code = 9.9 % 5905-5) EOS % (test code = 2.0 % 713-8) BASO % (test code = 0.8 % 706-2) GRAN MAT x10^3(ANC) 2.76 10*3/uL 1.99-6.95 (test code = 1056760595) IMM GRAN x10^3 (test <0.03 0.00-0.06 code = 8730191760) LYMPH x10^3 (test code 1.56 10*3/uL 1.09-3.23 = 731-0) MONO x10^3 (test code 0.49 10*3/uL 0.36-1.02 = 742-7) EOS x10^3 (test code = 0.10 10*3/uL 0.06-0.53 711-2) BASO x10^3 (test code 0.04 10*3/uL 0.01-0.09 = 704-7) Lab Interpretation Abnormal (test code = 90189-6) [facility] METABOLIC PANEL (NA, K, CL, CO2, GLUCOSE, BUN, CREATININE, CA)2021-05-08 01:11:57 Test Item Value Reference Range Interpretation Comments NA (test code = 134 mmol/L 135-145 L 7597177385) K (test code = 4.7 mmol/L 3.5-5.0 8735312704) CL (test code = 100 mmol/L 98-108 9954166880) CO2 TOTAL (test code = 24 mmol/L 23-31 8476892493) AGAP (test code = 2-16 4346012713) BUN (test code = 27 mg/dL 7-23 H 6295330989) GLUCOSE (test code = 94 mg/dL 70-110 7612318718) CREATININE (test code = 1.31 mg/dL 0.60-1.25 H 1972879535) CALCIUM (test code = 9.5 mg/dL 8.6-10.6 0341044606) eGFR (test code = mL/min/1.73m2 3096092477) GILBERTO (test code = GILBERTO) Association of [...] tests). Lab Interpretation Abnormal (test code = 38668-1) [facility] (66854[facility] (ALB,T.PRO,BILI T,BU/BC,ALT,AST,ALK PHOS)2021-05-08 01:11:57 Test Item Value Reference Range Interpretation Comments TOTAL BILI (test code = 6874745562) 0.8 mg/dL 0.1-1.1 BILI UNCON (test code = 9122867719) 0.2 mg/dL 0.1-1.1 BILI CONJ (test code = 5793850024) 0.0 mg/dL 0.0-0.3 T PROTEIN (test code = 2634878856) 7.1 g/dL 6.3-8.2 ALBUMIN (test code = 5695647181) 4.4 g/dL 3.5-5.0 ALK PHOS (test code = 1386036824) 88 U/L 34-122 ALTv (test code = 1742-6) 40 U/L 5-50 AST(SGOT) (test code = 0873062728) 38 U/L 13-40 Lab Interpretation (test code = Normal 19068-9) [facility] (NA, K, CL, CO2, GLUCOSE, BUN, CREATININE, CA)2021-05-08 01:11:57 Test Item Value Reference Range Interpretation Comments NA (test code = 134 mmol/L 135-145 L 7598372663) K (test code = 4.7 mmol/L 3.5-5.0 4595891746) CL (test code = 100 mmol/L 98-108 3340317871) CO2 TOTAL (test code = 24 mmol/L 23-31 1667720189) AGAP (test code = 2-16 5219652042) BUN (test code = 27 mg/dL 7-23 H 2432500038) GLUCOSE (test code = 94 mg/dL 70-110 0199374101) CREATININE (test code = 1.31 mg/dL 0.60-1.25 H 3802821922) CALCIUM (test code = 9.5 mg/dL 8.6-10.6 9454266154) eGFR (test code = mL/min/1.73m2 2684303412) GILBERTO (test code = GILBERTO) Association of [...] tests). Lab Interpretation Abnormal (test code = 36661-1) [facility] (16922) (ALB,T.PRO,BILI T,BU/BC,ALT,AST,ALK PHOS)2021-05-08 01:11:57 Test Item Value Reference Range Interpretation Comments TOTAL BILI (test code = 1704370953) 0.8 mg/dL 0.1-1.1 BILI UNCON (test code = 4508047765) 0.2 mg/dL 0.1-1.1 BILI CONJ (test code = 9345412536) 0.0 mg/dL 0.0-0.3 T PROTEIN (test code = 6468391598) 7.1 g/dL 6.3-8.2 ALBUMIN (test code = 2078508352) 4.4 g/dL 3.5-5.0 ALK PHOS (test code = 3333100627) 88 U/L 34-122 ALTv (test code = 1742-6) 40 U/L 5-50 AST(SGOT) (test code = 7312296806) 38 U/L 13-40 Lab Interpretation (test code = Normal 16337-1) [facility] WITH [id number] 00:59:56 Test Item Value Reference Range Interpretation Comments WBC (test code = See_Comment [Automated 8590-2) message] The sy stem which generated this [...] RDW-SD (test code = 46.9 fL 38.5-51.6 57156-0) RDW-CV (test code = 13.9 % 12.1-15.4 788-0) PLT (test code = See_Comment [Automated 777-3) message] The sy stem which generated this result transmitted reference range : 150 - 328 10*3/ ?L. The reference r meredith was not used to interpret this result as normal/abnormal . MPV (test code = 10.0 fL 9.8-13.0 40425-0) NRBC/100 WBC (test See_Comment [Automat ed code = 7871179887) message] The system which generated this result transmitted reference range : 0.0 - 10.0 /100 WBCs. The refer ence range was not u sed to interpret th is result as normal/abnormal . NRBC x10^3 (test code <0.01 See_Comment [Auto mated = 3503162069) message] The s ystem which generated this result transmitted reference range : 10*3/?L. The reference range was not used to interpret this result as normal/abnormal . GRAN MAT (NEUT) % 53.9 % (test code = 770-8) IMM GRAN % (test code 0.30 % = 1816449196) LYMPH % (test code = 32.0 % 736-9) MONO % (test code = 11.6 % 5905-5) EOS % (test code = 1.6 % 713-8) BASO % (test code = 0.6 % 706-2) GRAN MAT x10^3(ANC) 3.67 10*3/uL 1.99-6.95 (test code = 8432858917) IMM GRAN x10^3 (test <0.03 0.00-0.06 code = 8660274959) LYMPH x10^3 (test code 2.18 10*3/uL 1.09-3.23 = 731-0) MONO x10^3 (test code 0.79 10*3/uL 0.36-1.02 = 742-7) EOS x10^3 (test code = 0.11 10*3/uL 0.06-0.53 711-2) BASO x10^3 (test code 0.04 10*3/uL 0.01-0.09 = 704-7) Lab Interpretation Abnormal (test code = 82094-4) [facility] WITH [id number] 00:59:56 Test Item Value Reference Range Interpretation [...] RDW-SD (test code = 46.9 fL 38.5-51.6 22055-4) RDW-CV (test code = 13.9 % 12.1-15.4 788-0) PLT (test code = See_Comment [Automated 777-3) message] The sy stem which generated this result transmitted reference range : 150 - 328 10*3/ ?L. The reference r meredith was not used to interpret this result as normal/abnormal . MPV (test code = 10.0 fL 9.8-13.0 81962-5) NRBC/100 WBC (test See_Comment [Automat ed code = 2978943159) message] The system which generated this result transmitted reference range : 0.0 - 10.0 /100 WBCs. The refer ence range was not u sed to interpret th is result as normal/abnormal . NRBC x10^3 (test code <0.01 See_Comment [Auto mated = 9085515589) message] The s ystem which generated this result transmitted reference range : 10*3/?L. The reference range was not used to interpret this result as normal/abnormal . GRAN MAT (NEUT) % 53.9 % (test code = 770-8) IMM GRAN % (test code 0.30 % = 0208736888) LYMPH % (test code = 32.0 % 736-9) MONO % (test code = 11.6 % 5905-5) EOS % (test code = 1.6 % 713-8) BASO % (test code = 0.6 % 706-2) GRAN MAT x10^3(ANC) 3.67 10*3/uL 1.99-6.95 (test code = 0197446773) IMM GRAN x10^3 (test <0.03 0.00-0.06 code = 4788789094) LYMPH x10^3 (test code 2.18 10*3/uL 1.09-3.23 = 731-0) MONO x10^3 (test code 0.79 10*3/uL 0.36-1.02 = 742-7) EOS x10^3 (test code = 0.11 10*3/uL 0.06-0.53 711-2) BASO x10^3 (test code 0.04 10*3/uL 0.01-0.09 = 704-7) Lab Interpretation Abnormal (test code = 58730-9) [facility] W/AUTO [id number] 09:20:00 Test Item Value Reference Range Interpretation [...] (test code NO = MDIFF) CBC W/AUTO [id number] 08:59:00 Test Item Value Reference Range Interpretation [...] REQUIRED (test code = MDIFF) BASIC METABOLIC [id number] 08:21:00 Test Item Value Reference Range Interpretation [...] 8.4 mg/dL 8.0-10.5 N CA) BASIC METABOLIC [id number] 08:34:00 Test Item Value Reference Range Interpretation [...] 8.4 mg/dL 8.0-10.5 N CA) CBC W/AUTO [id number] 07:41:00 Test Item Value Reference Range Interpretation [...] = MDIFF) UA RFLX MICR CULT IF [id number] 10:10:00 Test Item Value Reference Range Interpretation [...] 100.4 FSpecimen Description: [facility]REAM[facility] METABOLIC [id number] 04:13:00 Test Item Value Reference Range Interpretation [...] 9.1 mg/dL 8.0-10.5 N CA) [id number]:03:00 Test Item Value Reference Range Interpretation Comments Coronavirus 2019 Negative Negative Performed b y certified nCoV Bedside (chemical tester at [facility] code = CtrNegative res ults should [id number]) be treated as presumptive and, ifinconsis tent with clinical signs and symptoms or necessaryfor patient management, fifi uld be tested with an alternativemole cular assay. Negative result s do not preclude QAXR-XuB-4qdshb tion and should not be u sed as the sole basis forp atient management deci sions. Negative result s should beconsidered in the context of a patient's recent exposures,histo ry, presence of clinical sig ns and symptoms consis tentwith COVID-19. CBC W/AUTO [id number] 21:11:00 Test Item Value Reference Range Interpretation [...] MX#) 0.6 k/mm3 0.1-0.8 N BASIC METABOLIC [id number] 19:00:00 Test Item Value Reference Range Interpretation [...] POCGLU) 92 MG/DL - CT ABD PELVIS [id number] 00:00:00 [facility] : 1970 Sex: MName: DORA MCNEILL FSED : 1970 Age/S: 51 / M [address] [facility] Unit #: [id number] Loc: [place] [address] Phys: Montserrat Benoit MD Acct: [id number] Dis Date: Status: REG ERPHONE #: Exam Date: 04/28/20211913 FAX #: Reason: epigastric and LLQ pain, R-sided colostomy EXAMS: CPT CODE: [id number] CT ABD PELVIS W/CONT 42049 PROCEDURE INFORMATION: Exam: CT Abdomen And Pelvis [...] : 1970 Age/S: 51 / M [address] [facility] Unit #: [id number] Loc: [place] [address] Phys: Montserrat Benoit MD Acct: [id number] Dis Date: Status: REG ER PHONE #: Exam Date: 04/28/20211913 FAX #: Reason: epigastricand LLQ pain, R-sided colostomy EXAMS: CPT CODE: [id number] CT ABD PELVIS W/CONT [id number] <Continued> Reproductive: Unremarkable as visualized. Bones/joints: Unremarkable. No acute fracture. Soft tissues: Unremarkable. IMPRESSION: 1. 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 2. Mild long segment bowel wall thickening/mucosal prominence compatible with an enteritis. No evidence for obstruction. at 1955 Reported and signed by: Hector Nichols M.D. CC: Montserrat Benoit MD Technologist:Stephanie Albrecht, RT(R)(CT) CTDI: DLP: Trnscb Date/Time: 04/28/2021 (1955) t.JESIKA Orig Print D/T: S: 12/2020 (1955) PAGE 2 Signed ReportBasic Metabolic Panel (NA, K, CL, CO2, GLUCOSE, BUN, CREATININE, CA)2020-08-23 10:29:00 Test Item Value Reference Range Interpretation Comments NA (test code = 139 mmol/L 135-145 6574775837) K (test code = 4.0 mmol/L 3.5-5 9906685846) CL (test code = 108 mmol/L 98-108 4051557631) CO2 TOTAL (test code = 22 mmol/L 23-31 L 1652072965) AGAP (test code = 2-16 5141591054) BUN (test code = 25 mg/dL 7-23 H 8094715404) GLUCOSE (test code = 91 mg/dL 70-110 8800420767) CREATININE (test code = 1.14 mg/dL 0.6-1.25 0403099317) CALCIUM (test code = 8.9 mg/dL 8.6-10.6 0189224122) eGFR Calculation mL/min/1.73m2 (Non-) (test code = 9960160044) eGFR Calculation mL/min/1.73m2 () (test code = 0365613539) GILBERTO (test code = GILBERTO) Association of [...] tests). Lab Interpretation Abnormal (test code = 80373-8) [facility] AmericaPROFILE / [id number] 10:13:00 Test Item Value Reference Range Interpretation Comments WBC (test code = 6690-2) See_Comment [A utomated message] The system niiu generated this result transmit dain reference range : 4.20 - 10.70 10*3/?L. The reference range was not used to interpret this result as normal/abnormal . RBC (test code = 789-8) See_Comment L [Au tomated message] The system niiu generated this result transmit dain reference range [...] 777-3) See_Comment [Au tomated message] The system niiu generated this result transmit dain reference range : 150 - 328 10*3/?L. The reference range was not used to interpret this result as normal/abnormal . MPV (test code = 9.0 fL 9.8-13 L 71298-5) RDW-CV (test code = 18.7 % 12.1-15.4 H 788-0) RDW-SD (test code = 59.7 fL 38.5-51.6 H 49618-9) NRBC x10^3 (test code = <0.01 See_Comment [Au tomated message] 3776877430) The system niiu generated this result transmit dain reference range : 10*3/?L. The reference range was not used to interpret this result as normal/abnormal . NRBC/100 WBC (test code See_Comment [Au tomated message] = 2327419467) The system [facility] generated this result transmit dain reference range : 0.0 - 10.0 /100 WBC s. The reference r meredith was not used to interpret this result as normal/abnormal . IPF % (test code = 1484901550) Lab Interpretation (test Abnormal code = 10576-7) [facility] AmericaCOVID-19 (ID NOW RAPID TESTING)2020-08-23 00:56:00 Test Item Value Reference Range Interpretation Comments SARS-CoV-2 Rapid ID NOW Not Detected Not Detected (test code = 87171-7) GILBERTO (test code = GILBERTO) ID NOW COVID-19 Assay is an isothermal nucleic acid amplification test intended for the qualitative detection of nucleic acid from SARS-CoV-2 viral RNA in nasopharyngeal (FLOAT BUILDER) specimens. It is used under Emergency Use [...] indicated. Lab Interpretation Normal (test code = 28100-8) [facility] (NA, K, CL, CO2, GLUCOSE, BUN, CREATININE, CA)2020-08-22 22:36:00 Test Item Value Reference Range Interpretation Comments NA (test code = 133 mmol/L 135-145 L 9288120893) K (test code = 4.5 mmol/L 3.5-5 1798699479) CL (test code = 104 mmol/L 98-108 2609861383) CO2 TOTAL (test code = 25 mmol/L 23-31 8772587993) AGAP (test code = 2-16 2866166113) BUN (test code = 27 mg/dL 7-23 H 7678021448) GLUCOSE (test code = 94 mg/dL 70-110 5852634403) CREATININE (test code = 1.33 mg/dL 0.6-1.25 H 3060313528) CALCIUM (test code = 9.5 mg/dL 8.6-10.6 8020444073) eGFR Calculation mL/min/1.73m2 (Non-) (test code = 2969474743) eGFR Calculation mL/min/1.73m2 () (test code = 2225830082) GILBERTO (test code = GILBERTO) Association of [...] tests). Lab Interpretation Abnormal (test code = 42132-6) [facility] AmericaHepatic Function Panel (ALB, T.PRO, BILI T, BU/BC, ALT, AST, ALK PHOS)2020-08-22 22:36:00 Test Item Value Reference Range Interpretation Comments TOTAL BILI (test code = 5966175879) 0.4 mg/dL 0.1-1.1 BILI UNCON (test code = 7935812449) 0.1 mg/dL 0.1-1.1 BILI CONJ (test code = 1241983234) 0.0 mg/dL 0-0.3 T PROTEIN (test code = 2583981633) 6.8 g/dL 6.3-8.2 ALBUMIN (test code = 4239645092) 4.0 g/dL 3.5-5 ALK PHOS (test code = 2559618936) 78 U/L 34-122 ALTv (test code = 1742-6) 35 U/L 5-50 AST(SGOT) (test code = 9092898949) 29 U/L 13-40 Lab Interpretation (test code = Normal 86674-0) [facility] with [id number] 22:15:00 Test Item Value Reference Range Interpretation [...] (test code = 60.6 fL 38.5-51.6 H 62178-9) RDW-CV (test code = 19.0 % 12.1-15.4 H 788-0) PLT (test code = See_Comment [Automated 777-3) message] The sy stem which generated this result transmitted reference range : 150 - 328 10*3/ ?L. The reference r meredith was not used to interpret this result as normal/abnormal . MPV (test code = 9.3 fL 9.8-13 L 60450-7) NRBC/100 WBC (test See_Comment [Automat ed code = 7061856773) message] The system which generated this result transmitted reference range : 0.0 - 10.0 /100 WBCs. The refer ence range was not u sed to interpret th is result as normal/abnormal . NRBC x10^3 (test code <0.01 See_Comment [Auto mated = 8731305590) message] The s ystem which generated this result transmitted reference range : 10*3/?L. The reference range was not used to interpret this result as normal/abnormal . GRAN MAT (NEUT) % 58.6 % (test code = 770-8) IMM GRAN % (test code 0.60 % = 8424580077) LYMPH % (test code = 28.2 % 736-9) MONO % (test code = 9.5 % 5905-5) EOS % (test code = 2.4 % 713-8) BASO % (test code = 0.7 % 706-2) GRAN MAT x10^3(ANC) 3.14 10*3/uL 1.99-6.95 (test code = 6194457391) IMM GRAN x10^3 (test 0.03 10*3/uL 0-0.06 code = 4808605224) LYMPH x10^3 (test code 1.51 10*3/uL 1.09-3.23 = 731-0) MONO x10^3 (test code 0.51 10*3/uL 0.36-1.02 = 742-7) EOS x10^3 (test code = 0.13 10*3/uL 0.06-0.53 711-2) BASO x10^3 (test code 0.04 10*3/uL 0.01-0.09 = 704-7) Lab Interpretation Abnormal (test code = 98033-2) [facility] AmericaCT SOFT TISSUE NECK W [id number] 00:47:10Impression: 1. Patent aerodigestive tract.2. No discrete [...] glands are normal. Thyroid gland is unremarkable. Service Desk Analyst spaces are normal. Buccal spaces are normal. [...] submandibular glands are normal. Thyroid gland is unremarkable.Service Desk Analyst spaces are normal. Buccal spaces are normal. [...] abscess is identified.RL: [id number] of Report [facility] ([facility] NOW RAPID TESTING)2020-07-09 23:23:00 Test Item Value Reference Range Interpretation Comments SARS-CoV-2 Rapid ID NOW Not Detected Not Detected (test code = 20788-1) GILBERTO (test code = GILBERTO) ID NOW COVID-19 Assay is an isothermal nucleic acid amplification test intended for the qualitative detection of nucleic acid from SARS-CoV-2 viral RNA in nasopharyngeal (FLOAT BUILDER) specimens. It is used under Emergency Use [...] indicated. Lab Interpretation Normal (test code = 69953-1) [facility] AmericaUrinalysis2020-11-16 23:21:00 Test Item Value Reference Range Interpretation Comments APPEARANCE (test code = Clear Clear 8123040073) COLOR (test code = Yellow Yellow 0920560277) PH (test code = 4.8-8.0 2595528354) SP GRAVITY (test code = 1.003-1.030 7519656815) GLU U QUAL (test code = Normal Normal 6768432499) BLOOD (test code = Negative Negative 8119815186) KETONES (test code = Negative Negative 8644404031) PROTEIN (test code = 30 mg/dL Negative A 2887-8) UROBILIN (test code = Normal Normal 6816741116) BILIRUBIN (test code = Negative Negative 3986170527) NITRITE (test code = Negative Negative 3208983071) LEUK ROGER (test code = Negative Negative 8902124539) RBC/HPF (test code = <1 See_Comment [Autom ated message] 9064430221) The system niiu generated this result transmitted ref erence range: 0 - 3 HP F. The reference range was not used to int erpret this result as normal/abnormal . WBC/HPF (test code = See_Comment [Autom ated message] 9419021794) The system niiu generated this result transmitted ref erence range: 0 - 5 HP F. The reference range was not used to int erpret this result as normal/abnormal . BACTERIA (test code = Negative Negative 6107269900) MUCOUS (test code = Moderate Negative LPF A 8393330347) HYAL CAST (test code = See_Comment H [Aut omated message] 9234556895) The system niiu generated this result transmitted ref erence range: <=2 LPF. The reference range was not used to int erpret this result as normal/abnormal . Lab Interpretation (test Abnormal code = 17543-3) [facility] Met[facility] (NA, K, CL, CO2, GLUCOSE, BUN, CREATININE, CA)2020-07-09 23:20:00 Test Item Value Reference Range Interpretation Comments NA (test code = 135 mmol/L 135-145 9961331185) K (test code = 3.9 mmol/L 3.5-5 3274631267) CL (test code = 107 mmol/L 98-108 2859667738) CO2 TOTAL (test code = 20 mmol/L 23-31 L 8137642093) AGAP (test code = 2-16 2913710703) BUN (test code = 27 mg/dL 7-23 H 3717800319) GLUCOSE (test code = 86 mg/dL 70-110 8969471284) CREATININE (test code = 1.11 mg/dL 0.6-1.25 9190287133) CALCIUM (test code = 9.0 mg/dL 8.6-10.6 0881342837) eGFR Calculation mL/min/1.73m2 (Non-) (test code = 1581344653) eGFR Calculation mL/min/1.73m2 () (test code = 5982596972) GILBERTO (test code = GILBERTO) Association of [...] tests). Lab Interpretation Abnormal (test code = 00622-4) [facility] AmericaRAPID STREP SCREEN FOR GROUP [id number] 23:11:00 Test Item Value Reference Range Interpretation Comments Streptococcus pyogenes (group A) Negative Negative antigen (test code = 63943-8) Lab Interpretation (test code = Normal 17691-2) [facility] with Pezfppmullgq7592-14-68 23:02:00 Test Item Value Reference Range Interpretation [...] (test code = 55.5 fL 38.5-51.6 H 77968-6) RDW-CV (test code = 18.9 % 12.1-15.4 H 788-0) PLT (test code = See_Comment [Automated 777-3) message] The sy stem which generated this result transmitted reference range : 150 - 328 10*3/ ?L. The reference r meredith was not used to interpret this result as normal/abnormal . MPV (test code = 8.9 fL 9.8-13 L 22028-8) NRBC/100 WBC (test See_Comment [Automat ed code = 4335183131) message] The system which generated this result transmitted reference range : 0.0 - 10.0 /100 WBCs. The refer ence range was not u sed to interpret th is result as normal/abnormal . NRBC x10^3 (test code <0.01 See_Comment [Auto mated = 4215496045) message] The s ystem which generated this result transmitted reference range : 10*3/?L. The reference range was not used to interpret this result as normal/abnormal . GRAN MAT (NEUT) % 59.4 % (test code = 770-8) IMM GRAN % (test code 0.20 % = 8051869668) LYMPH % (test code = 29.9 % 736-9) MONO % (test code = 9.0 % 5905-5) EOS % (test code = 1.2 % 713-8) BASO % (test code = 0.3 % 706-2) GRAN MAT x10^3(ANC) 3.56 10*3/uL 1.99-6.95 (test code = 6508801053) IMM GRAN x10^3 (test <0.03 0-0.06 code = 4328697682) LYMPH x10^3 (test code 1.79 10*3/uL 1.09-3.23 = 731-0) MONO x10^3 (test code 0.54 10*3/uL 0.36-1.02 = 742-7) EOS x10^3 (test code = 0.07 10*3/uL 0.06-0.53 711-2) BASO x10^3 (test code <0.03 0.01-0.09 = 704-7) Lab Interpretation Abnormal (test code = 81337-9) [facility] AmericaUrinalysis2020-10-13 13:37:00 Test Item Value Reference Range Interpretation Comments APPEARANCE (test code = Hazy Clear A 1615884677) COLOR (test code = Yellow Yellow 6287430628) PH (test code = 4.8-8.0 2815242041) SP GRAVITY (test code = 1.003-1.030 H 2863300551) GLU U QUAL (test code = Normal Normal 0331555761) BLOOD (test code = Negative Negative 8472385900) KETONES (test code = Negative Negative 7752729006) PROTEIN (test code = Negative Negative 2887-8) UROBILIN (test code = Normal Normal 5537739989) BILIRUBIN (test code = Negative Negative 9249728366) NITRITE (test code = Negative Negative 3657074647) LEUK ROGER (test code = Negative Negative 2929826641) RBC/HPF (test code = See_Comment H [Autom ated message] 0130215183) The system niiu generated this result transmitted ref erence range: 0 - 3 HP F. The reference range was not used to int erpret this result as normal/abnormal . WBC/HPF (test code = See_Comment [Autom ated message] 0791157980) The system niiu generated this result transmitted ref erence range: 0 - 5 HP F. The reference range was not used to int erpret this result as normal/abnormal . BACTERIA (test code = Negative Negative 0832732815) MUCOUS (test code = Moderate Negative LPF A 1058898697) CA OXALATE (test code = See_Comment [Au tomated message] 9272192069) The system niiu generated this result transmitted ref erence range: <=1 HPF. The reference range was not used to int erpret this result as normal/abnormal . SPERM (test code = See_Comment H [Automat ed message] 9569659014) The system niiu generated this result transmitted ref erence range: <=1 HPF. The reference range was not used to int erpret this result as normal/abnormal . HYAL CAST (test code = See_Comment H [Aut omated message] 4517359621) The system niiu generated this result transmitted ref erence range: <=2 LPF. The reference range was not used to int erpret this result as normal/abnormal . Lab Interpretation (test Abnormal code = 33228-7) [facility] AmericaCT ABDOMEN PELVIS W [id number] 13:22:00CT Abdomen and Pelvis with intravenous contrast. [...] infection. Left seminal vesicleshowed no significant enhancement. [facility], Radiant Results Inft User - [...] sign of infection. Left seminal vesicleshowed no significantenhancement.[facility] [id number] 12:40:00 Test Item Value Reference Range Interpretation Comments TROPONIN I (test <0.012 See_Comment [Automated code = 3569165383) message] The system which generated this result [...] ? Lab Interpretation Normal (test code = 21035-9) [facility] (NA, K, CL, CO2, GLUCOSE, BUN, CREATININE, CA)2020-06-05 12:28:00 Test Item Value Reference Range Interpretation Comments NA (test code = 139 mmol/L 135-145 2546932788) K (test code = 4.4 mmol/L 3.5-5 5403624224) CL (test code = 112 mmol/L 98-108 H 3662256784) CO2 TOTAL (test code = 24 mmol/L 23-31 4879192585) AGAP (test code = 2-16 6843767147) BUN (test code = 23 mg/dL 7-23 5009390000) GLUCOSE (test code = 88 mg/dL 70-110 5378551054) CREATININE (test code = 0.96 mg/dL 0.6-1.25 4492523372) CALCIUM (test code = 9.5 mg/dL 8.6-10.6 3131829788) eGFR Calculation mL/min/1.73m2 (Non-) (test code = 4053832945) eGFR Calculation mL/min/1.73m2 () (test code = 1698892368) GILBERTO (test code = GILBERTO) Association of [...] tests). Lab Interpretation Abnormal (test code = 44342-1) [facility] AmericaHepatic Function Panel (ALB, T.PRO, BILI T, BU/BC, ALT, AST, ALK PHOS)2020-06-05 12:28:00 Test Item Value Reference Range Interpretation Comments TOTAL BILI (test code = 4123374989) 0.5 mg/dL 0.1-1.1 BILI UNCON (test code = 1369275980) 0.3 mg/dL 0.1-1.1 BILI CONJ (test code = 1503072019) 0.0 mg/dL 0-0.3 T PROTEIN (test code = 5518124599) 6.6 g/dL 6.3-8.2 ALBUMIN (test code = 2709071297) 3.7 g/dL 3.5-5 ALK PHOS (test code = 9752431498) 79 U/L 34-122 ALTv (test code = 1742-6) 23 U/L 5-50 AST(SGOT) (test code = 5548364404) 27 U/L 13-40 Lab Interpretation (test code = Normal 45731-8) [facility] AmericaLipase Xwqey5605-84-75 12:28:00 Test Item Value Reference Range Interpretation Comments LIPASE (test code = 0521544082) 150 U/L 0-220 Lab Interpretation (test code = Normal 27576-5) [facility] with Omegprvvkeuz1367-42-79 12:11:00 Test Item Value Reference Range Interpretation [...] (test code = 62.2 fL 38.5-51.6 H 28190-5) RDW-CV (test code = 20.0 % 12.1-15.4 H 788-0) PLT (test code = See_Comment [Automated 777-3) message] The sy stem which generated this result transmitted reference range : 150 - 328 10*3/ ?L. The reference r meredith was not used to interpret this result as normal/abnormal . MPV (test code = 10.0 fL 9.8-13 25255-9) NRBC/100 WBC (test See_Comment [Automat ed code = 4242789760) message] The system which generated this result transmitted reference range : 0.0 - 10.0 /100 WBCs. The refer ence range was not u sed to interpret th is result as normal/abnormal . NRBC x10^3 (test code <0.01 See_Comment [Auto mated = 2135565217) message] The s ystem which generated this result transmitted reference range : 10*3/?L. The reference range was not used to interpret this result as normal/abnormal . GRAN MAT (NEUT) % 65.7 % (test code = 770-8) IMM GRAN % (test code 0.30 % = 7400483732) LYMPH % (test code = 21.2 % 736-9) MONO % (test code = 10.0 % 5905-5) EOS % (test code = 2.3 % 713-8) BASO % (test code = 0.5 % 706-2) GRAN MAT x10^3(ANC) 3.99 10*3/uL 1.99-6.95 (test code = 6130801333) IMM GRAN x10^3 (test <0.03 0-0.06 code = 3629909800) LYMPH x10^3 (test code 1.29 10*3/uL 1.09-3.23 = 731-0) MONO x10^3 (test code 0.61 10*3/uL 0.36-1.02 = 742-7) EOS x10^3 (test code = 0.14 10*3/uL 0.06-0.53 711-2) BASO x10^3 (test code 0.03 10*3/uL 0.01-0.09 = 704-7) Lab Interpretation Abnormal (test code = 67279-3) [facility] AmericaLactic Acid Whole Ksmux6049-18-82 12:04:00 Test Item Value Reference Range Interpretation Comments LACTIC ACID (test code = 1.23 mmol/L 5694501394) [facility] AmericaIR ABSCESS DRAIN [id number] 14:57:23 Successful abscessogram demonstrated unchanged position of [...] consentwas obtained. Prior to beginning the procedure, [place] Protocol was usedtoconfirm the patient's identity and planned procedure. Maximum sterilebarriers including cap, mask, momin nd hygiene, sterile gloves, sterile gown,large sterile drape and cutaneous antisepsis were used. Theskin overlying the existing drainage catheter in the right upperquadrant of the abdomen was sterilely prepped, draped and infiltrated with1 percent lidocaine. A housekeeping and laundry team leader image was documented prior to the injection [...] drainage catheter and with questionablefistulization to bowel. [facility], Radiant Results Inft User - 05/31/2020 9:58 AM CDTEXAMINATION: PERCUTANEOUS PERIHEPATIC ABSCESS DRAINAGE CATHETEREVALUATION/EXCHANGE.HISTORY: 50 years-old; Male; s/p Drain placement in right abdomen fluidcollection. No output for 3 consecutive days. Please eval for possibleremoval.ATTENDEES: Attending radiologist: Dr. Sadiq Gordon; Resident: Dr. Johnny Tilley;[facility] resident: Dr. Leeanna Valenzuela.SEDATION: No moderate sedation was administered for this procedure.RADIATION DOSE: 7.7 mGy.TECHNIQUE: The risks, benefits and alternatives were discussed and informed consentwas obtained. Prior to beginning the procedure, [place] Protocol was usedto confirm the patient's identity and planned procedure. Maximum sterilebarriers including cap, mask, hand hygiene, sterile gloves, sterile gown,large sterile drape and cutaneous antisepsis were used. The skin overlying the existing drainage catheter in the right upperquadrant of the abdomen was sterilely prepped, draped and infiltrated with1 percent lidocaine. A housekeeping and laundry team leader image was documented prior to the injection [...] agree with theabove report. [facility] METABOLIC PANEL (NA, K, CL, CO2, GLUCOSE, BUN, CREATININE, CA)2020-05-31 08:13:00 Test Item Value Reference Range Interpretation Comments NA (test code = 135 mmol/L 135-145 5089523975) K (test code = 4.1 mmol/L 3.5-5 5781997709) CL (test code = 99 mmol/L 98-108 1719904869) CO2 TOTAL (test code = 32 mmol/L 23-31 H 8121900784) AGAP (test code = 2-16 8766787232) BUN (test code = 14 mg/dL 7-23 6719487556) GLUCOSE (test code = 89 mg/dL 70-110 1525896222) CREATININE (test code = 0.67 mg/dL 0.6-1.25 4014995836) CALCIUM (test code = 8.2 mg/dL 8.6-10.6 L 5344134291) eGFR Calculation mL/min/1.73m2 (Non-) (test code = 6891989363) eGFR Calculation mL/min/1.73m2 () (test code = 3771795871) GILBERTO (test code = GILBERTO) Association of [...] tests). Lab Interpretation Abnormal (test code = 59789-1) [facility] AmericaMAGNESIUM2020-10-08 08:13:00 Test Item Value Reference Range Interpretation Comments MAGNESIUM (test code = 4460075360) 1.8 mg/dL 1.7-2.4 Lab Interpretation (test code = Normal 65237-8) [facility] AmericaPHOSPHORUS2020-10-08 08:13:00 Test Item Value Reference Range Interpretation Comments PHOSPHORUS (test code = 7620038884) 5.2 mg/dL 2.5-5 H Lab Interpretation (test code = Abnormal 81576-0) [facility] WITH [id number] 08:05:00 Test Item Value Reference Range Interpretation Comments WBC (test code = See_Comment L [Automated 6690-2) message] The sy stem which generated this result transmitted reference range : 4.20 - 10.70 10*3/?L. The reference range was not used to interpret this result as normal/abnormal . RBC (test code = See_Comment L [Automated 9-8) message] The sy stem which [...] (test code = 57.9 fL 38.5-51.6 H 29993-4) RDW-CV (test code = 18.7 % 12.1-15.4 H 788-0) PLT (test code = See_Comment [Automated 777-3) message] The sy stem which generated this result transmitted reference range : 150 - 328 10*3/ ?L. The reference r meredith was not used to interpret this result as normal/abnormal . MPV (test code = 10.3 fL 9.8-13 43644-3) NRBC/100 WBC (test See_Comment [Automat ed code = 8060499210) message] The system which generated this result transmitted reference range : 0.0 - 10.0 /100 WBCs. The refer ence range was not u sed to interpret th is result as normal/abnormal . NRBC x10^3 (test code <0.01 See_Comment [Auto mated = 3536317964) message] The s ystem which generated this result transmitted reference range : 10*3/?L. The reference range was not used to interpret this result as normal/abnormal . GRAN MAT (NEUT) % 56.4 % (test code = 770-8) IMM GRAN % (test code 0.50 % = 0401662620) LYMPH % (test code = 26.2 % 736-9) MONO % (test code = 12.2 % 5905-5) EOS % (test code = 4.2 % 713-8) BASO % (test code = 0.5 % 706-2) GRAN MAT x10^3(ANC) 2.31 10*3/uL 1.99-6.95 (test code = 7039219169) IMM GRAN x10^3 (test <0.03 0-0.06 code = 2838246263) LYMPH x10^3 (test code 1.07 10*3/uL 1.09-3.23 L = 731-0) MONO x10^3 (test code 0.50 10*3/uL 0.36-1.02 = 742-7) EOS x10^3 (test code = 0.17 10*3/uL 0.06-0.53 711-2) BASO x10^3 (test code <0.03 0.01-0.09 = 704-7) Lab Interpretation Abnormal (test code = 12772-2) [facility] METABOLIC PANEL (NA, K, CL, CO2, GLUCOSE, BUN, CREATININE, CA)2020-05-30 09:04:00 Test Item Value Reference Range Interpretation Comments NA (test code = 138 mmol/L 135-145 5541624623) K (test code = 4.4 mmol/L 3.5-5 8160331469) CL (test code = 99 mmol/L 98-108 3852598020) CO2 TOTAL (test code = 33 mmol/L 23-31 H 5465441675) AGAP (test code = 2-16 1835381947) BUN (test code = 18 mg/dL 7-23 2056807581) GLUCOSE (test code = 86 mg/dL 70-110 3154294264) CREATININE (test code = 0.61 mg/dL 0.6-1.25 1228885585) CALCIUM (test code = 8.1 mg/dL 8.6-10.6 L 8348640190) eGFR Calculation mL/min/1.73m2 (Non-) (test code = 8390297307) eGFR Calculation mL/min/1.73m2 () (test code = 7515249611) GILBERTO (test code = GILBERTO) Association of [...] tests). Lab Interpretation Abnormal (test code = 00047-4) [facility] America[facility]IUM2020-10-07 09:04:00 Test Item Value Reference Range Interpretation Comments MAGNESIUM (test code = 7736118633) 2.0 mg/dL 1.7-2.4 Lab Interpretation (test code = Normal 00503-7) [facility] AmericaPHOSPHORUS2020-10-07 09:04:00 Test Item Value Reference Range Interpretation Comments PHOSPHORUS (test code = 3419034660) 4.6 mg/dL 2.5-5 Lab Interpretation (test code = Normal 31380-2) [facility] (NA, K, CL, CO2, GLUCOSE, BUN, CREATININE, CA)2020-05-29 07:31:00 Test Item Value Reference Range Interpretation Comments NA (test code = 135 mmol/L 135-145 6127539941) K (test code = 4.0 mmol/L 3.5-5 9897331214) CL (test code = 100 mmol/L 98-108 8472465632) CO2 TOTAL (test code = 32 mmol/L 23-31 H 0490367214) AGAP (test code = 2-16 1094348319) BUN (test code = 19 mg/dL 7-23 8272201314) GLUCOSE (test code = 86 mg/dL 70-110 0047914643) CREATININE (test code = 0.68 mg/dL 0.6-1.25 8873303409) CALCIUM (test code = 8.0 mg/dL 8.6-10.6 L 2354644614) eGFR Calculation mL/min/1.73m2 (Non-) (test code = 9372438364) eGFR Calculation mL/min/1.73m2 () (test code = 0527607358) GILBERTO (test code = GILEBRTO) Association of Glomerular Filtration Rate (GFR) and [...] tests). Lab Interpretation Abnormal (test code = 00223-4) [facility]2020-10-06 07:31:00 Test Item Value Reference Range Interpretation Comments MAGNESIUM (test code = 4352126366) 1.6 mg/dL 1.7-2.4 L Lab Interpretation (test code = Abnormal 88497-7) [facility]2020-10-06 07:31:00 Test Item Value Reference Range Interpretation Comments PHOSPHORUS (test code = 3285231603) 3.5 mg/dL 2.5-5 Lab Interpretation (test code = Normal 15496-2) [facility] America[facility]IRATE OR ABSCESS CULTURE(AEROBIC/ANAEROBIC) 2020-05-28 12:35:00 Test Item Value Reference Range Interpretation Comments Aspirate or Abscess No aerobic/anaerobic Culture (test code = organisms isolated 48564-7) Gram stain (test code Occasional (Rare) = 664-3) Mononuclear cells [facility] METABOLIC PANEL (NA, K, CL, CO2, GLUCOSE, BUN, CREATININE, CA)2020-05-28 09:36:00 Test Item Value Reference Range Interpretation Comments NA (test code = 136 mmol/L 135-145 8029177025) K (test code = 4.3 mmol/L 3.5-5 5587552459) CL (test code = 102 mmol/L 98-108 8981326234) CO2 TOTAL (test code = 31 mmol/L 23-31 0940667434) AGAP (test code = 2-16 1111466703) BUN (test code = 25 mg/dL 7-23 H 5219624906) GLUCOSE (test code = 87 mg/dL 70-110 7046270193) CREATININE (test code = 0.65 mg/dL 0.6-1.25 5697731569) CALCIUM (test code = 8.2 mg/dL 8.6-10.6 L 0601914953) eGFR Calculation mL/min/1.73m2 (Non-) (test code = 9087230698) eGFR Calculation mL/min/1.73m2 () (test code = 7793100527) GILBERTO (test code = GILBERTO) Association of [...] tests). Lab Interpretation Abnormal (test code = 09957-8) [facility]2020-10-05 09:36:00 Test Item Value Reference Range Interpretation Comments MAGNESIUM (test code = 8098611328) 1.6 mg/dL 1.7-2.4 L Lab Interpretation (test code = Abnormal 53803-4) [facility]2020-10-05 09:36:00 Test Item Value Reference Range Interpretation Comments PHOSPHORUS (test code = 4361146793) 2.6 mg/dL 2.5-5 Lab Interpretation (test code = Normal 97775-2) [facility] (NA, K, CL, CO2, GLUCOSE, BUN, CREATININE, CA)2020-05-27 10:13:00 Test Item Value Reference Range Interpretation Comments NA (test code = 135 mmol/L 135-145 0467951764) K (test code = 3.9 mmol/L 3.5-5 1696023313) CL (test code = 103 mmol/L 98-108 0303436298) CO2 TOTAL (test code = 28 mmol/L 23-31 0703818963) AGAP (test code = 2-16 8982657370) BUN (test code = 20 mg/dL 7-23 6502482580) GLUCOSE (test code = 95 mg/dL 70-110 6158274785) CREATININE (test code = 0.67 mg/dL 0.6-1.25 0135989273) CALCIUM (test code = 8.2 mg/dL 8.6-10.6 L 9593701728) eGFR Calculation mL/min/1.73m2 (Non-) (test code = 5872136240) eGFR Calculation mL/min/1.73m2 () (test code = 4827520441) GILBERTO (test code = GILBERTO) Association of [...] tests). Lab Interpretation Abnormal (test code = 84582-6) [facility]2020-10-04 10:13:00 Test Item Value Reference Range Interpretation Comments MAGNESIUM (test code = 9662799515) 1.5 mg/dL 1.7-2.4 L Lab Interpretation (test code = Abnormal 52957-8) [facility]2020-10-04 10:13:00 Test Item Value Reference Range Interpretation Comments PHOSPHORUS (test code = 9714426277) 3.4 mg/dL 2.5-5 Lab Interpretation (test code = Normal 99708-4) [facility] AmericaIR CHANGE OF ABSCESS [id number] 17:06:27 Successful removal of the left upper quadrant drainage catheter. Replacement of the right upper quadrant catheter into the most superiorsegment of the collection with a new 10 Omani pigtail catheter.PLAN: This tube should be flushed with 10 of saline twice a day. ?We willcontinue to monitor the output of the catheter while the patient isin-house. If the patient is discharged prior to catheter removal, follow-upwith VIR is recommended in 7-10 ?days. This can be arranged by [id number]. Preliminary Report Dictated by Resident: Johnny Tilley [...] from those actually performing theprocedure. Please see [facility] for sedation time. RADIATION DOSE: 33.0 mGy. TECHNIQUE: The risks, benefits and alternativeswere discussed and informed consentwas obtained. Prior to beginning the procedure, [place] Protocol was usedto confirm the patient's identity [...] of the pigtailcatheters within the respective collections. [facility], Radiant Results Inft User - [...] from those actually performing theprocedure. Please see [facility] for sedation time.RADIATION DOSE: 33.0 mGy.TECHNIQUE: The risks, benefits andalternatives were discussed and informed consentwas obtained. Prior to beginning the procedure, [place] Protocol was usedto confirm the patient's identity [...] of the collection with a new 10 Omani pigtail catheter.PLAN: This tube should be flushed with 10 of saline twice a day. We willcontinue to monitor the output of the catheter while the patient isin-house. If the patient is discharged prior to catheter removal, follow-upwith VIR is recommended in 7-10 days. This can be arranged by [id number].Preliminary Report Dictated by Resident: Johnny Benitez, as teaching physician, was present during the entire procedure and/orduring the botello components.Nixon Damon MD., have reviewed this study and agree with theabove report.[facility] America[facility] ASPIRATION ABSCESS BULLA OR CYST BY [id number] 17:06:16 Successful ultrasound-guided aspiration of intrahepatic small [...] consentwas obtained. Prior to beginning the procedure, [place] Protocol was usedto confirm the patient's identity and planned procedure. Maximum sterilebarriers including cap, mask, hand hygiene, sterile gloves, sterile gown,large sterile drape and cutaneous antisepsis were used. The skin overlying the right mid abdomen was sterilely prepped, draped andinfiltrated with 1percent lidocaine. The targeted infrahepatic small collection was then accessed with [id number] micropuncture needle using imaging guidance which includedultrasound. [...] consentwas obtained. Prior to beginning the procedure, [place] Protocol was usedto confirm the patient's identity and planned procedure. Maximum sterilebarriers including cap, mask, hand hygiene, sterile gloves, sterile gown,large sterile drape and cutaneous antisepsis were used. The skin overlying the right mid abdomen was sterilely prepped, draped andinfiltrated with 1 percent lidocaine. The targeted infrahepatic small collection was then accessed with [id number] micropuncture needle using imaging guidance which includ [...] reviewed this study and agree with theabove report.[facility] (NA, K, CL, CO2, GLUCOSE, BUN, CREATININE, CA) 2020-05-26 10:13:00 Test Item Value Reference Range Interpretation Comments NA (test code = 135 mmol/L 135-145 0201791010) K (test code = 4.4 mmol/L 3.5-5 3374074686) CL (test code = 107 mmol/L 98-108 1117490046) CO2 TOTAL (test code = 23 mmol/L 23-31 4993086412) AGAP (test code = 2-16 4957836230) BUN (test code = 18 mg/dL 7-23 3812633363) GLUCOSE (test code = 101 mg/dL 70-110 0634639654) CREATININE (test code = 0.61 mg/dL 0.6-1.25 7524612433) CALCIUM (test code = 8.1 mg/dL 8.6-10.6 L 1574267593) eGFR Calculation mL/min/1.73m2 (Non-) (test code = 9098934731) eGFR Calculation mL/min/1.73m2 () (test code = 4235129138) GILBERTO (test code = GILBERTO) Association of [...] tests). Lab Interpretation Abnormal (test code = 06187-6) [facility]2020-10-03 10:13:00 Test Item Value Reference Range Interpretation Comments MAGNESIUM (test code = 3444311414) 1.7 mg/dL 1.7-2.4 Lab Interpretation (test code = Normal 46600-7) [facility]2020-10-03 10:13:00 Test Item Value Reference Range Interpretation Comments PHOSPHORUS (test code = 5544716321) 3.4 mg/dL 2.5-5 Lab Interpretation (test code = Normal 38392-1) [facility] AmericaXR [id number] 23:20:33 Positioning dictated draining the right upper [...] upper quadrant. Nopneumoperitoneum.Preliminary Report Dictated by Resident: Abihjit Chang MD., have reviewed this study and agree with theabove report.[facility] (NA, K, CL, CO2, GLUCOSE, BUN, CREATININE, CA)2020-05-25 22:49:00 Test Item Value Reference Range Interpretation Comments NA (test code = 136 mmol/L 135-145 6708205943) K (test code = 4.5 mmol/L 3.5-5 3541955009) CL (test code = 105 mmol/L 98-108 6974796470) CO2 TOTAL (test code = 22 mmol/L 23-31 L 1450807973) AGAP (test code = 2-16 8939971882) BUN (test code = 24 mg/dL 7-23 H 0065747718) GLUCOSE (test code = 101 mg/dL 70-110 4100461259) CREATININE (test code = 0.74 mg/dL 0.6-1.25 9572349613) CALCIUM (test code = 8.6 mg/dL 8.6-10.6 1593744114) eGFR Calculation mL/min/1.73m2 (Non-) (test code = 5438044366) eGFR Calculation mL/min/1.73m2 () (test code = 8719506377) GILBERTO (test code = GILBERTO) Association of [...] tests). Lab Interpretation Abnormal (test code = 99366-0) [facility]2020-10-02 22:11:00 Test Item Value Reference Range Interpretation Comments MAGNESIUM (test code = 2567845164) 2.0 mg/dL 1.7-2.4 Lab Interpretation (test code = Normal 48089-4) [facility]2020-10-02 22:11:00 Test Item Value Reference Range Interpretation Comments PHOSPHORUS (test code = 0909154289) 3.1 mg/dL 2.5-5 Lab Interpretation (test code = Normal 82917-0) [facility] AmericaCB WITH [id number] 21:51:00 Test Item Value Reference Range Interpretation Comments WBC (test code = See_Comment [Automated 1290-2) message] The sy stem which generated this result transmitted reference range : 4.20 - 10.70 10*3/?L. The reference range was not used to interpret this result as normal/abnormal . RBC (test code = See_Comment [Automated 129-8) message] The sy stem which [...] (test code = 53.1 fL 38.5-51.6 H 30589-0) RDW-CV (test code = 17.9 % 12.1-15.4 H 788-0) PLT (test code = See_Comment [Automated 777-3) message] The sy stem which generated this result transmitted reference range : 150 - 328 10*3/ ?L. The reference r meredith was not used to interpret this result as normal/abnormal . MPV (test code = 9.1 fL 9.8-13 L 04807-2) NRBC/100 WBC (test See_Comment [Automat ed code = 1135702244) message] The system which generated this result transmitted reference range : 0.0 - 10.0 /100 WBCs. The refer ence range was not u sed to interpret th is result as normal/abnormal . NRBC x10^3 (test code <0.01 See_Comment [Auto mated = 7665218977) message] The s ystem which generated this result transmitted reference range : 10*3/?L. The reference range was not used to interpret this result as normal/abnormal . GRAN MAT (NEUT) % 73.4 % (test code = 770-8) IMM GRAN % (test code 0.50 % = 7172527362) LYMPH % (test code = 17.9 % 736-9) MONO % (test code = 5.2 % 5905-5) EOS % (test code = 2.5 % 713-8) BASO % (test code = 0.5 % 706-2) GRAN MAT x10^3(ANC) 4.05 10*3/uL 1.99-6.95 (test code = 0347935364) IMM GRAN x10^3 (test 0.03 10*3/uL 0-0.06 code = 2740163203) LYMPH x10^3 (test code 0.99 10*3/uL 1.09-3.23 L = 731-0) MONO x10^3 (test code 0.29 10*3/uL 0.36-1.02 L = 742-7) EOS x10^3 (test code = 0.14 10*3/uL 0.06-0.53 711-2) BASO x10^3 (test code 0.03 10*3/uL 0.01-0.09 = 704-7) Lab Interpretation Abnormal (test code = 22489-5) [facility] METABOLIC PANEL (NA, K, CL, CO2, GLUCOSE, BUN, CREATININE, CA)2020-05-25 09:24:00 Test Item Value Reference Range Interpretation Comments NA (test code = 135 mmol/L 135-145 3085644748) K (test code = 5.3 mmol/L 3.5-5 H Slight 9756051992) hemolysis CL (test code = 104 mmol/L 98-108 8939496556) CO2 TOTAL (test code 24 mmol/L 23-31 = 9021540676) AGAP (test code = 2-16 9534087173) BUN (test code = 22 mg/dL 7-23 Slight 4747615025) hemolysis GLUCOSE (test code = 96 mg/dL 70-110 9146711436) CREATININE (test code 0.73 mg/dL 0.6-1.25 = 5081467024) CALCIUM (test code = 8.2 mg/dL 8.6-10.6 L 7138333816) eGFR Calculation mL/min/1.73m2 (Non-) (test code = 4810498870) eGFR Calculation mL/min/1.73m2 () (test code = 2599395573) GILBERTO (test code = GILBERTO) Association of [...] tests). Lab Interpretation Abnormal (test code = 91071-5) [facility]2020-10-02 09:24:00 Test Item Value Reference Range Interpretation Comments MAGNESIUM (test code = 7126424520) 2.3 mg/dL 1.7-2.4 Lab Interpretation (test code = Normal 86396-1) [facility]2020-10-02 09:24:00 Test Item Value Reference Range Interpretation Comments PHOSPHORUS (test code = 8703526039) 3.4 mg/dL 2.5-5 Lab Interpretation (test code = Normal 63258-4) [facility] (NA, K, CL, CO2, GLUCOSE, BUN, CREATININE, CA)2020-05-24 21:00:00 Test Item Value Reference Range Interpretation Comments NA (test code = 135 mmol/L 135-145 7739030530) K (test code = 4.3 mmol/L 3.5-5 6216173843) CL (test code = 102 mmol/L 98-108 7898996242) CO2 TOTAL (test code = 25 mmol/L 23-31 0792253654) AGAP (test code = 2-16 1676018933) BUN (test code = 20 mg/dL 7-23 6019132963) GLUCOSE (test code = 102 mg/dL 70-110 3532530276) CREATININE (test code 0.97 mg/dL 0.6-1.25 = 1904521033) CALCIUM (test code = 9.0 mg/dL 8.6-10.6 1760785605) eGFR Calculation mL/min/1.73m2 (Non-) (test code = 0942814832) eGFR Calculation mL/min/1.73m2 () (test code = 7604154600) GILBERTO (test code = GILBERTO) Association of [...] or urine or abnormalities in imaging tests). [facility]2020-10-01 21:00:00 Test Item Value Reference Range Interpretation Comments MAGNESIUM (test code = 1421485272) 1.5 mg/dL 1.7-2.4 L Lab Interpretation (test code = Abnormal 47548-0) [facility]2020-10-01 20:58:00 Test Item Value Reference Range Interpretation Comments PHOSPHORUS (test code = 0368016650) 3.3 mg/dL 2.5-5 Lab Interpretation (test code = Normal 61812-2) [facility] with [id number] 11:31:00 Test Item Value Reference Range Interpretation Comments WBC (test code = See_Comment [Automated 6502-2) message] The sy stem which generated this result transmitted reference range : 4.20 - 10.70 10*3/?L. The reference range was not used to interpret this result as normal/abnormal . RBC (test code = See_Comment L [Automated 211-3) message] The sy stem which generated this [...] (test code = 51.9 fL 38.5-51.6 H 12751-6) RDW-CV (test code = 17.6 % 12.1-15.4 H 788-0) PLT (test code = See_Comment H [Automated 777-3) message] The sy stem which generated this result transmitted reference range : 150 - 328 10*3/ ?L. The reference r meredith was not used to interpret this result as normal/abnormal . MPV (test code = 9.0 fL 9.8-13 L 56983-2) NRBC/100 WBC (test See_Comment [Automat ed code = 8728519528) message] The system which generated this result transmitted reference range : 0.0 - 10.0 /100 WBCs. The refer ence range was not u sed to interpret th is result as normal/abnormal . NRBC x10^3 (test code <0.01 See_Comment [Auto mated = 3360273383) message] The s ystem which generated this result transmitted reference range : 10*3/?L. The reference range was not used to interpret this result as normal/abnormal . GRAN MAT (NEUT) % 66.0 % (test code = 770-8) IMM GRAN % (test code 0.20 % = 5222287247) LYMPH % (test code = 20.3 % 736-9) MONO % (test code = 10.4 % 5905-5) EOS % (test code = 2.6 % 713-8) BASO % (test code = 0.5 % 706-2) GRAN MAT x10^3(ANC) 4.33 10*3/uL 1.99-6.95 (test code = 4012743950) IMM GRAN x10^3 (test <0.03 0-0.06 code = 8382929969) LYMPH x10^3 (test code 1.33 10*3/uL 1.09-3.23 = 731-0) MONO x10^3 (test code 0.68 10*3/uL 0.36-1.02 = 742-7) EOS x10^3 (test code = 0.17 10*3/uL 0.06-0.53 711-2) BASO x10^3 (test code 0.03 10*3/uL 0.01-0.09 = 704-7) Lab Interpretation Abnormal (test code = 94633-0) [facility] AmericaCT ABDOMEN PELVIS W [id number] 17:39:05 Since 05/19/2020 slight increase in size [...] perihepatic are unchanged with drains insitu as above.[facility] (NA, K, CL, CO2, Glucose, BUN, Creatinine, CA)2020-05-23 10:25:00 Test Item Value Reference Range Interpretation Comments NA (test code = 135 mmol/L 135-145 8319110371) K (test code = 3.7 mmol/L 3.5-5 6563162010) CL (test code = 105 mmol/L 98-108 7900361728) CO2 TOTAL (test code = 24 mmol/L 23-31 5425613266) AGAP (test code = 2-16 4874993772) BUN (test code = 19 mg/dL 7-23 2188827195) GLUCOSE (test code = 117 mg/dL 70-110 H 0548677290) CREATININE (test code = 0.74 mg/dL 0.6-1.25 3033281481) CALCIUM (test code = 7.3 mg/dL 8.6-10.6 L 2354281990) eGFR Calculation mL/min/1.73m2 (Non-) (test code = 7176571135) eGFR Calculation mL/min/1.73m2 () (test code = 4561757105) GILBERTO (test code = GILBERTO) Association of [...] tests). Lab Interpretation Abnormal (test code = 69149-9) [facility] COVID-19 [id number] 07:40:00 Test Item Value Reference Range Interpretation Comments SARS-CoV-2 Rapid ID NOW Not Detected Not Detected (test code = 36409-1) GILBERTO (test code = GILBERTO) ID NOW COVID-19 Assay is an isothermal nucleic acid amplification test intended for the qualitative detection of nucleic acid from SARS-CoV-2 viral RNA in nasopharyngeal ([employer]) specimens. It is used under Emergency Use [...] indicated. Lab Interpretation Normal (test code = 17448-0) [facility] AmericaUrinalysis2020-09-29 22:41:00 Test Item Value Reference Range Interpretation Comments APPEARANCE (test code = Hazy Clear A 0892940073) COLOR (test code = Yellow Yellow 2313442722) PH (test code = 4.8-8.0 6437754750) SP GRAVITY (test code = 1.003-1.030 2217981941) GLU U QUAL (test code = Normal Normal 4362392716) BLOOD (test code = Negative Negative 1778908944) KETONES (test code = Negative Negative 5698009690) PROTEIN (test code = 30 mg/dL Negative A 2887-8) UROBILIN (test code = Normal Normal 2109562693) BILIRUBIN (test code = Negative Negative 9979386614) NITRITE (test code = Negative Negative 6759320867) LEUK ROGER (test code = Negative Negative 7494837329) RBC/HPF (test code = See_Comment H [Autom ated message] 2661946079) The system niiu generated this result transmitted ref erence range: 0 - 3 HP F. The reference range was not used to int erpret this result as normal/abnormal . WBC/HPF (test code = See_Comment H [Autom ated message] 1711480955) The system niiu generated this result transmitted ref erence range: 0 - 5 HP F. The reference range was not used to int erpret this result as normal/abnormal . BACTERIA (test code = Negative Negative 5362136491) MUCOUS (test code = Moderate Negative LPF A 4514345408) SQ EPITH (test code = See_Comment [Auto mated message] 9103866057) The system niiu generated this result transmitted ref erence range: <=2 HPF. The reference range was not used to int erpret this result as normal/abnormal . CA OXALATE (test code = See_Comment H [Au tomated message] 0881201745) The system niiu generated this result transmitted ref erence range: <=1 HPF. The reference range was not used to int erpret this result as normal/abnormal . HYAL CAST (test code = See_Comment H [Aut omated message] 9214271249) The system niiu generated this result transmitted ref erence range: <=2 LPF. The reference range was not used to int erpret this result as normal/abnormal . Lab Interpretation (test Abnormal code = 69307-4) [facility] Metabolic Panel (NA, K, CL, CO2, GLUCOSE, BUN, CREATININE, CA)2020-05-22 21:46:00 Test Item Value Reference Range Interpretation Comments NA (test code = 134 mmol/L 135-145 L 0005440526) K (test code = 5.0 mmol/L 3.5-5 6726141059) CL (test code = 103 mmol/L 98-108 1930655075) CO2 TOTAL (test code = 25 mmol/L 23-31 9092471529) AGAP (test code = 2-16 5506173126) BUN (test code = 24 mg/dL 7-23 H 5864508509) GLUCOSE (test code = 102 mg/dL 70-110 7590613000) CREATININE (test code = 0.87 mg/dL 0.6-1.25 9122649014) CALCIUM (test code = 9.2 mg/dL 8.6-10.6 1266182882) eGFR Calculation mL/min/1.73m2 (Non-) (test code = 7934744447) eGFR Calculation mL/min/1.73m2 () (test code = 7008046964) GILBERTO (test code = GILBERTO) Association of [...] tests). Lab Interpretation Abnormal (test code = 89882-3) [facility] America[facility]atic Function Panel (ALB, T.PRO, BILI T, BU/BC, ALT, AST, ALK PHOS)2020-05-22 21:46:00 Test Item Value Reference Range Interpretation Comments TOTAL BILI (test code = 7500211707) 0.4 mg/dL 0.1-1.1 BILI UNCON (test code = 0955902560) 0.2 mg/dL 0.1-1.1 BILI CONJ (test code = 2213607113) 0.0 mg/dL 0-0.3 T PROTEIN (test code = 0841678113) 6.5 g/dL 6.3-8.2 ALBUMIN (test code = 5808923778) 3.6 g/dL 3.5-5 ALK PHOS (test code = 1896292794) 96 U/L 34-122 ALTv (test code = 1742-6) 22 U/L 5-50 AST(SGOT) (test code = 9567296943) 28 U/L 13-40 Lab Interpretation (test code = Normal 78998-4) [facility] AmericaLipase [id number] 21:46:00 Test Item Value Reference Range Interpretation Comments LIPASE (test code = 2084577443) 95 U/L 0-220 Lab Interpretation (test code = Normal 17224-7) [facility] AmericaaPTT2020-09-29 21:46:00 Test Item Value Reference Range Interpretation Comments APTT Patient (test code = See_Comment [ Automated message] 3173-2) The system niiu generated this result transmitted ref erence range: 26 - 36 Seconds. The re ference range was not u sed to interpret this result as normal/abnor mal. Lab Interpretation (test Normal code = 85298-8) [facility] AmericaProthrombin Time (PT) / [id number] 21:46:00 Test Item Value Reference Range Interpretation [...] tions. Lab Interpretation (test Abnormal code = 25877-7) [facility] AmericaCBC with [id number] 21:41:00 Test Item Value Reference Range Interpretation [...] (test code = 53.0 fL 38.5-51.6 H 83935-3) RDW-CV (test code = 17.6 % 12.1-15.4 H 788-0) PLT (test code = See_Comment H [Automated 777-3) message] The sy stem which generated this result transmitted reference range : 150 - 328 10*3/ ?L. The reference r meredith was not used to interpret this result as normal/abnormal . MPV (test code = 9.1 fL 9.8-13 L 94290-5) NRBC/100 WBC (test See_Comment [Automat ed code = 0460772963) message] The system which generated this result transmitted reference range : 0.0 - 10.0 /100 WBCs. The refer ence range was not u sed to interpret th is result as normal/abnormal . NRBC x10^3 (test code <0.01 See_Comment [Auto mated = 2923799011) message] The s ystem which generated this result transmitted reference range : 10*3/?L. The reference range was not used to interpret this result as normal/abnormal . GRAN MAT (NEUT) % 77.4 % (test code = 770-8) IMM GRAN % (test code 0.50 % = 3378030886) LYMPH % (test code = 15.8 % 736-9) MONO % (test code = 4.9 % 5905-5) EOS % (test code = 0.8 % 713-8) BASO % (test code = 0.6 % 706-2) GRAN MAT x10^3(ANC) 5.04 10*3/uL 1.99-6.95 (test code = 0897216655) IMM GRAN x10^3 (test 0.03 10*3/uL 0-0.06 code = 1007873913) LYMPH x10^3 (test code 1.03 10*3/uL 1.09-3.23 L = 731-0) MONO x10^3 (test code 0.32 10*3/uL 0.36-1.02 L = 742-7) EOS x10^3 (test code = 0.05 10*3/uL 0.06-0.53 L 711-2) BASO x10^3 (test code 0.04 10*3/uL 0.01-0.09 = 704-7) Lab Interpretation Abnormal (test code = 09072-1) [facility] Uvyg4863-44-96 21:19:32CHEST ONE VIEW HISTORY: ?Weakness TECHNIQUE: ?AP [...] the left costophrenic angle suggests a leftpleural effusion.[facility] America[facility]OVID[facility] (ID NOW RAPID TESTING) 2020-05-20 10:09:00 Test Item Value Reference Range Interpretation Comments SARS-CoV-2 Rapid ID NOW Not Detected Not Detected (test code = 58995-4) GILBERTO (test code = GILBERTO) ID NOW COVID-19 Assay is an isothermal nucleic acid amplification test intended for the qualitative detection of nucleic acid from SARS-CoV-2 viral RNA in nasopharyngeal (FLOAT BUILDER) specimens. It is used under Emergency Use [...] indicated. Lab Interpretation Normal (test code = 73606-8) [facility] America[facility]INALYSIS2020-09-27 10:07:00 Test Item Value Reference Range Interpretation Comments APPEARANCE (test code = Clear Clear 6793953509) COLOR (test code = Yellow Yellow 8647036405) PH (test code = 4.8-8.0 1252949884) SP GRAVITY (test code = 1.003-1.030 H 9520746307) GLU U QUAL (test code = Normal Normal 8571953462) BLOOD (test code = Negative Negative 4272080875) KETONES (test code = Negative Negative 2683481793) PROTEIN (test code = Negative Negative 2887-8) UROBILIN (test code = Normal Normal 7177168940) BILIRUBIN (test code = Negative Negative 0071923465) NITRITE (test code = Negative Negative 2180636954) LEUK ROGER (test code = Negative Negative 0699492046) RBC/HPF (test code = See_Comment [Autom ated message] 2871714059) The system niiu generated this result transmitted ref erence range: 0 - 3 HP F. The reference range was not used to int erpret this result as normal/abnormal . WBC/HPF (test code = See_Comment [Autom ated message] 0425563186) The system niiu generated this result transmitted ref erence range: 0 - 5 HP F. The reference range was not used to int erpret this result as normal/abnormal . BACTERIA (test code = Negative Negative 0574814731) MUCOUS (test code = Slight Negative LPF A 8282986055) SQ EPITH (test code = See_Comment [Auto mated message] 6194563612) The system niiu generated this result transmitted ref erence range: <=2 HPF. The reference range was not used to int erpret this result as normal/abnormal . HYAL CAST (test code = See_Comment H [Aut omated message] 1631536695) The system niiu generated this result transmitted ref erence range: <=2 LPF. The reference range was not used to int erpret this result as normal/abnormal . Lab Interpretation (test Abnormal code = 90174-6) [facility] AmericaCT ABDOMEN PELVIS W [id number] 04:28:40Impression: 1. Multiple rim-enhancing fluid and gas [...] effusions, possiblyloculated on the left. RL: 2824AFC: [id number] End of Report Exam: CT Abdomen and [...] pleural effusions, possiblyloculated on the left.RL: 2824AFC: [id number] of Report [facility] [id number] 03:44:00 Test Item Value Reference Range Interpretation Comments TROPONIN I (test 0.001 ng/mL See_Comment [Automated code = 8706936052) message] The system which generated this result [...] ? Lab Interpretation Normal (test code = 60115-0) [facility]. METABOLIC PANEL (32411)2020-05-20 03:33:00 Test Item Value Reference Range Interpretation Comments NA (test code = 138 mmol/L 135-145 4774459922) K (test code = 5.3 mmol/L 3.5-5 H 2023943895) CL (test code = 100 mmol/L 98-108 5441915406) CO2 TOTAL (test code = 28 mmol/L 23-31 7063023555) AGAP (test code = 2-16 8132784551) BUN (test code = 27 mg/dL 7-23 H 6247586309) GLUCOSE (test code = 90 mg/dL 70-110 0846632589) CREATININE (test code = 1.25 mg/dL 0.6-1.25 0361055121) TOTAL BILI (test code = 0.2 mg/dL 0.1-1.4 1265427646) CALCIUM (test code = 9.9 mg/dL 8.6-10.6 2397155314) T PROTEIN (test code = 6.8 g/dL 6.3-8.2 8412117657) ALBUMIN (test code = 3.7 g/dL 3.5-5 9727430286) ALK PHOS (test code = 122 U/L 34-122 8309883041) ALTv (test code = 26 U/L 5-50 1742-6) AST(SGOT) (test code = 24 U/L 13-40 1561388868) eGFR Calculation mL/min/1.73m2 (Non-) (test code = 1447080299) eGFR Calculation mL/min/1.73m2 () (test code = 3987884579) GILBERTO (test code = GILBERTO) Association of [...] tests). Lab Interpretation Abnormal (test code = 36446-5) [facility] AmericaLIPASE2020-09-27 03:33:00 Test Item Value Reference Range Interpretation Comments LIPASE (test code = 1482667104) 223 U/L 0-220 H Lab Interpretation (test code = Abnormal 84664-0) [facility] AmericaMAGNESIUM2020-09-27 03:33:00 Test Item Value Reference Range Interpretation Comments MAGNESIUM (test code = 8583929682) 1.7 mg/dL 1.7-2.4 Lab Interpretation (test code = Normal 00814-7) [facility] AmericaCB WITH [id number] 03:17:00 Test Item Value Reference Range Interpretation [...] RDW-SD (test code = 49.9 fL 38.5-51.6 10835-3) RDW-CV (test code = 17.2 % 12.1-15.4 H 788-0) PLT (test code = See_Comment H [Automated 777-3) message] The sy stem which generated this result transmitted reference range : 150 - 328 10*3/ ?L. The reference r meredith was not used to interpret this result as normal/abnormal . MPV (test code = 9.3 fL 9.8-13 L 67454-0) NRBC/100 WBC (test See_Comment [Automat ed code = 3283165500) message] The system which generated this result transmitted reference range : 0.0 - 10.0 /100 WBCs. The refer ence range was not u sed to interpret th is result as normal/abnormal . NRBC x10^3 (test code <0.01 See_Comment [Auto mated = 9887823319) message] The s ystem which generated this result transmitted reference range : 10*3/?L. The reference range was not used to interpret this result as normal/abnormal . GRAN MAT (NEUT) % 78.5 % (test code = 770-8) IMM GRAN % (test code 0.50 % = 0118109658) LYMPH % (test code = 11.6 % 736-9) MONO % (test code = 8.4 % 5905-5) EOS % (test code = 0.6 % 713-8) BASO % (test code = 0.4 % 706-2) GRAN MAT x10^3(ANC) 6.16 10*3/uL 1.99-6.95 (test code = 1115715670) IMM GRAN x10^3 (test 0.04 10*3/uL 0-0.06 code = 3492270580) LYMPH x10^3 (test code 0.91 10*3/uL 1.09-3.23 L = 731-0) MONO x10^3 (test code 0.66 10*3/uL 0.36-1.02 = 742-7) EOS x10^3 (test code = 0.05 10*3/uL 0.06-0.53 L 711-2) BASO x10^3 (test code 0.03 10*3/uL 0.01-0.09 = 704-7) Lab Interpretation Abnormal (test code = 45777-1) [facility] AmericaBODY FLUID CULTURE(AEROBIC/ANAEROBIC) 2020-05-10 15:19:00 Test Item Value Reference Range Interpretation Comments BODY FLUID CULT 2+ Clostridioides (test code = (Clostridium) difficile 611-4) Gram stain (test Few PMNs or Mononuclear code = 664-3) cells observed [facility] AmericaBasi Metabolic Panel (NA, K, CL, CO2, GLUCOSE, BUN, CREATININE, CA)2020-05-10 10:27:00 Test Item Value Reference Range Interpretation Comments NA (test code = 132 mmol/L 135-145 L 9508918005) K (test code = 4.0 mmol/L 3.5-5 2872513865) CL (test code = 97 mmol/L 98-108 L 5531626683) CO2 TOTAL (test code = 28 mmol/L 23-31 9221129334) AGAP (test code = 2-16 6047099409) BUN (test code = 12 mg/dL 7-23 5986678988) GLUCOSE (test code = 128 mg/dL 70-110 H 5498749713) CREATININE (test code = 0.63 mg/dL 0.6-1.25 5224770277) CALCIUM (test code = 8.7 mg/dL 8.6-10.6 3080163699) eGFR Calculation mL/min/1.73m2 (Non-) (test code = 0535949432) eGFR Calculation mL/min/1.73m2 () (test code = 3418873947) GILBERTO (test code = GILBERTO) Association of [...] tests). Lab Interpretation Abnormal (test code = 32905-2) [facility] AmericaMagnesium Dlvwz2729-58-67 10:27:00 Test Item Value Reference Range Interpretation Comments MAGNESIUM (test code = 9856622359) 1.7 mg/dL 1.7-2.4 Lab Interpretation (test code = Normal 60958-2) [facility] AmericaPhosphorus Wemht6825-78-51 10:27:00 Test Item Value Reference Range Interpretation Comments PHOSPHORUS (test code = 4777321291) 3.4 mg/dL 2.5-5 Lab Interpretation (test code = Normal 76068-4) [facility] with Iztbjipztcwd7534-94-40 10:03:00 Test Item Value Reference Range Interpretation [...] RDW-SD (test code = 47.3 fL 38.5-51.6 32554-3) RDW-CV (test code = 15.7 % 12.1-15.4 H 788-0) PLT (test code = See_Comment H [Automated 777-3) message] The sy stem which generated this result transmitted reference range : 150 - 328 10*3/ ?L. The reference r meredith was not used to interpret this result as normal/abnormal . MPV (test code = 8.9 fL 9.8-13 L 29611-2) NRBC/100 WBC (test See_Comment [Automat ed code = 1090974070) message] The system which generated this result transmitted reference range : 0.0 - 10.0 /100 WBCs. The refer ence range was not u sed to interpret th is result as normal/abnormal . NRBC x10^3 (test code <0.01 See_Comment [Auto mated = 1161470257) message] The s ystem which generated this result transmitted reference range : 10*3/?L. The reference range was not used to interpret this result as normal/abnormal . GRAN MAT (NEUT) % 80.0 % (test code = 770-8) IMM GRAN % (test code 0.50 % = 6712671882) LYMPH % (test code = 11.8 % 736-9) MONO % (test code = 6.6 % 5905-5) EOS % (test code = 0.8 % 713-8) BASO % (test code = 0.3 % 706-2) GRAN MAT x10^3(ANC) 6.98 10*3/uL 1.99-6.95 H (test code = 9263140620) IMM GRAN x10^3 (test 0.04 10*3/uL 0-0.06 code = 2758360156) LYMPH x10^3 (test code 1.03 10*3/uL 1.09-3.23 L = 731-0) MONO x10^3 (test code 0.58 10*3/uL 0.36-1.02 = 742-7) EOS x10^3 (test code = 0.07 10*3/uL 0.06-0.53 711-2) BASO x10^3 (test code 0.03 10*3/uL 0.01-0.09 = 704-7) Lab Interpretation Abnormal (test code = 92061-5) [facility] Metabolic Panel (NA, K, CL, CO2, GLUCOSE, BUN, CREATININE, CA)2020-05-09 11:07:00 Test Item Value Reference Range Interpretation Comments NA (test code = 133 mmol/L 135-145 L 4136642979) K (test code = 4.4 mmol/L 3.5-5 7719120520) CL (test code = 100 mmol/L 98-108 8321732747) CO2 TOTAL (test code = 25 mmol/L 23-31 7241885891) AGAP (test code = 2-16 4122508718) BUN (test code = 14 mg/dL 7-23 2981759697) GLUCOSE (test code = 93 mg/dL 70-110 9849380921) CREATININE (test code = 0.66 mg/dL 0.6-1.25 7757467418) CALCIUM (test code = 8.3 mg/dL 8.6-10.6 L 4776921852) eGFR Calculation mL/min/1.73m2 (Non-) (test code = 1412905254) eGFR Calculation mL/min/1.73m2 () (test code = 9719406759) GILBERTO (test code = GILBERTO) Association of [...] tests). Lab Interpretation Abnormal (test code = 97244-5) [facility] AmericaMagnesium Qbswy1301-49-50 11:07:00 Test Item Value Reference Range Interpretation Comments MAGNESIUM (test code = 5222666326) 1.8 mg/dL 1.7-2.4 Lab Interpretation (test code = Normal 40756-8) [facility] AmericaPhosphorus Mxkzf4791-36-81 11:07:00 Test Item Value Reference Range Interpretation Comments PHOSPHORUS (test code = 9912285714) 3.2 mg/dL 2.5-5 Lab Interpretation (test code = Normal 08586-1) [facility] with Quyiqeeioltt9082-01-80 10:42:00 Test Item Value Reference Range Interpretation [...] RDW-SD (test code = 45.9 fL 38.5-51.6 63259-5) RDW-CV (test code = 15.4 % 12.1-15.4 788-0) PLT (test code = See_Comment H [Automated 777-3) message] The sy stem which generated this result transmitted reference range : 150 - 328 10*3/ ?L. The reference r meredith was not used to interpret this result as normal/abnormal . MPV (test code = 8.9 fL 9.8-13 L 40111-4) NRBC/100 WBC (test See_Comment [Automat ed code = 4449473324) message] The system which generated this result transmitted reference range : 0.0 - 10.0 /100 WBCs. The refer ence range was not u sed to interpret th is result as normal/abnormal . NRBC x10^3 (test code <0.01 See_Comment [Auto mated = 0554659268) message] The s ystem which generated this result transmitted reference range : 10*3/?L. The reference range was not used to interpret this result as normal/abnormal . GRAN MAT (NEUT) % 77.7 % (test code = 770-8) IMM GRAN % (test code 0.50 % = 7802013648) LYMPH % (test code = 11.8 % 736-9) MONO % (test code = 8.4 % 5905-5) EOS % (test code = 1.4 % 713-8) BASO % (test code = 0.2 % 706-2) GRAN MAT x10^3(ANC) 6.48 10*3/uL 1.99-6.95 (test code = 5389384840) IMM GRAN x10^3 (test 0.04 10*3/uL 0-0.06 code = 7217665341) LYMPH x10^3 (test code 0.98 10*3/uL 1.09-3.23 L = 731-0) MONO x10^3 (test code 0.70 10*3/uL 0.36-1.02 = 742-7) EOS x10^3 (test code = 0.12 10*3/uL 0.06-0.53 711-2) BASO x10^3 (test code <0.03 0.01-0.09 = 704-7) Lab Interpretation Abnormal (test code = 87387-5) [facility] (NA, K, CL, CO2, GLUCOSE, BUN, CREATININE, CA)2020-05-08 12:18:00 Test Item Value Reference Range Interpretation Comments NA (test code = 136 mmol/L 135-145 9185548128) K (test code = 4.1 mmol/L 3.5-5 2919238369) CL (test code = 102 mmol/L 98-108 2125771691) CO2 TOTAL (test code = 26 mmol/L 23-31 2514907027) AGAP (test code = 2-16 7295620175) BUN (test code = 18 mg/dL 7-23 0742455386) GLUCOSE (test code = 99 mg/dL 70-110 5101776605) CREATININE (test code = 0.63 mg/dL 0.6-1.25 7460625173) CALCIUM (test code = 8.4 mg/dL 8.6-10.6 L 3569586704) eGFR Calculation mL/min/1.73m2 (Non-) (test code = 5032626482) eGFR Calculation mL/min/1.73m2 () (test code = 4082936963) GILBERTO (test code = GILBERTO) Association of [...] tests). Lab Interpretation Abnormal (test code = 59405-4) [facility] AmericaMagn[facility] Gayiv1377-58-10 12:18:00 Test Item Value Reference Range Interpretation Comments MAGNESIUM (test code = 8227036211) 1.8 mg/dL 1.7-2.4 Lab Interpretation (test code = Normal 64645-7) [facility] AmericaPhosphorus Rsusl9429-99-83 12:18:00 Test Item Value Reference Range Interpretation Comments PHOSPHORUS (test code = 2504601301) 3.2 mg/dL 2.5-5 Lab Interpretation (test code = Normal 72686-2) [facility] with Timfzejbpsmz2765-06-31 11:50:00 Test Item Value Reference Range Interpretation [...] RDW-SD (test code = 46.9 fL 38.5-51.6 11895-2) RDW-CV (test code = 15.2 % 12.1-15.4 788-0) PLT (test code = See_Comment H [Automated 777-3) message] The sy stem which generated this result transmitted reference range : 150 - 328 10*3/ ?L. The reference r meredith was not used to interpret this result as normal/abnormal . MPV (test code = 9.0 fL 9.8-13 L 32854-9) NRBC/100 WBC (test See_Comment [Automat ed code = 3871305209) message] The system which generated this result transmitted reference range : 0.0 - 10.0 /100 WBCs. The refer ence range was not u sed to interpret th is result as normal/abnormal . NRBC x10^3 (test code <0.01 See_Comment [Auto mated = 2962708864) message] The s ystem which generated this result transmitted reference range : 10*3/?L. The reference range was not used to interpret this result as normal/abnormal . GRAN MAT (NEUT) % 76.3 % (test code = 770-8) IMM GRAN % (test code 0.70 % = 8329763989) LYMPH % (test code = 13.3 % 736-9) MONO % (test code = 8.4 % 5905-5) EOS % (test code = 1.1 % 713-8) BASO % (test code = 0.2 % 706-2) GRAN MAT x10^3(ANC) 6.93 10*3/uL 1.99-6.95 (test code = 2500541101) IMM GRAN x10^3 (test 0.06 10*3/uL 0-0.06 code = 2485032657) LYMPH x10^3 (test code 1.21 10*3/uL 1.09-3.23 = 731-0) MONO x10^3 (test code 0.76 10*3/uL 0.36-1.02 = 742-7) EOS x10^3 (test code = 0.10 10*3/uL 0.06-0.53 711-2) BASO x10^3 (test code <0.03 0.01-0.09 = 704-7) Lab Interpretation Abnormal (test code = 65085-7) [facility] AmericaIR DRAIN[facility] BY CATHETER PERITONEAL OR OTQFPZFNJFMEVQJ1977-26-14 13:09:04 Technically successful drainage catheter placement in [...] of the tract was performed. A 14 Omani locking pigtail michael inagecatheter was placed in the collection and samples were sent for laboratoryanalysis. The left upper quadrant collection was identified under ultrasound and CTguidance. A 17-gauge coaxial needle wasadvanced into the collection. AnAmplatz wire was advanced into the collection over the needle and serialdilatation of the tract was performed. A 12 Omani locking pigtail drainagecatheter was placed within the collection and samples were sent forlaboratory analysis. The right lower quadrant collectionwas identified under ultrasound and CTguidance. A 17-gauge coaxial needle was advanced into the colle ction.Serial dilatation was performed over the Amplatz wire. A 14 Omani lockingpigtail drainage catheter was placed within the [...] was obtained. Prior to beginning the procedure, [place] Protocolwas performed to confirm the patient's identity [...] of the tract was performed. A 14 Omani lockingpigtail drainagecatheter was placed in the collection and samples were sent for laboratoryanalysis.The left upper quadrant collection was identified under ultrasound and CTguidance. A 17-gauge coaxial needle was advanced into the collection. AnAmplatz wire was advanced into the collection over the needle and serialdilatation of the tract was performed. A 12 Omani locking pigtail drainagecatheter wasplaced within the collection and samples were sent forlaboratory analysis.The right lower quadrant collection was identified under ultrasound and CTguidance. A 17-gauge coaxial needle was advanced intothe collection.Serial dilatation was performed over the Amplatz wire. A 14 Omani lockingpigtail drainage catheter was placed within the [...] during the entire procedure and/orduring the botello components.[facility] Metabolic Panel (NA, K, CL, CO2, GLUCOSE, BUN, CREATININE, CA) 2020-05-07 11:49:00 Test Item Value Reference Range Interpretation Comments NA (test code = 132 mmol/L 135-145 L 0254088708) K (test code = 4.0 mmol/L 3.5-5 8676885851) CL (test code = 101 mmol/L 98-108 6069766224) CO2 TOTAL (test code = 23 mmol/L 23-31 7886711079) AGAP (test code = 2-16 3977155792) BUN (test code = 21 mg/dL 7-23 2726001648) GLUCOSE (test code = 98 mg/dL 70-110 1211289083) CREATININE (test code = 0.65 mg/dL 0.6-1.25 8777979431) CALCIUM (test code = 8.4 mg/dL 8.6-10.6 L 2827997488) eGFR Calculation mL/min/1.73m2 (Non-) (test code = 7494247900) eGFR Calculation mL/min/1.73m2 () (test code = 3049840706) GILBERTO (test code = GILBERTO) Association of [...] tests). Lab Interpretation Abnormal (test code = 72753-5) [facility] Cllor9172-37-97 11:49:00 Test Item Value Reference Range Interpretation Comments MAGNESIUM (test code = 7490988860) 1.5 mg/dL 1.7-2.4 L Lab Interpretation (test code = Abnormal 15508-3) [facility] AmericaPhosphorus Pkyjx5729-31-14 11:49:00 Test Item Value Reference Range Interpretation Comments PHOSPHORUS (test code = 8304826970) 2.7 mg/dL 2.5-5 Lab Interpretation (test code = Normal 94147-1) [facility] AmericaCBC with Wwecyzwchokb8126-74-38 11:31:00 Test Item Value Reference Range Interpretation [...] RDW-SD (test code = 47.2 fL 38.5-51.6 51392-6) RDW-CV (test code = 15.3 % 12.1-15.4 788-0) PLT (test code = See_Comment H [Automated 777-3) message] The sy stem which generated this result transmitted reference range : 150 - 328 10*3/ ?L. The reference r meredith was not used to interpret this result as normal/abnormal . MPV (test code = 9.4 fL 9.8-13 L 32389-8) NRBC/100 WBC (test See_Comment [Automat ed code = 4605838983) message] The system which generated this result transmitted reference range : 0.0 - 10.0 /100 WBCs. The refer ence range was not u sed to interpret th is result as normal/abnormal . NRBC x10^3 (test code <0.01 See_Comment [Auto mated = 5617976265) message] The s ystem which generated this result transmitted reference range : 10*3/?L. The reference range was not used to interpret this result as normal/abnormal . GRAN MAT (NEUT) % 81.1 % (test code = 770-8) IMM GRAN % (test code 0.80 % = 1928209435) LYMPH % (test code = 9.5 % 736-9) MONO % (test code = 7.8 % 5905-5) EOS % (test code = 0.6 % 713-8) BASO % (test code = 0.2 % 706-2) GRAN MAT x10^3(ANC) 8.26 10*3/uL 1.99-6.95 H (test code = 6047031558) IMM GRAN x10^3 (test 0.08 10*3/uL 0-0.06 H code = 5382072814) LYMPH x10^3 (test code 0.97 10*3/uL 1.09-3.23 L = 731-0) MONO x10^3 (test code 0.79 10*3/uL 0.36-1.02 = 742-7) EOS x10^3 (test code = 0.06 10*3/uL 0.06-0.53 711-2) BASO x10^3 (test code <0.03 0.01-0.09 = 704-7) Lab Interpretation Abnormal (test code = 84446-2) [facility] Metabolic Panel (NA, K, CL, CO2, GLUCOSE, BUN, CREATININE, CA)2020-05-06 15:02:00 Test Item Value Reference Range Interpretation Comments NA (test code = 134 mmol/L 135-145 L 0207133207) K (test code = 4.3 mmol/L 3.5-5 7634730742) CL (test code = 105 mmol/L 98-108 3547897213) CO2 TOTAL (test code = 23 mmol/L 23-31 4732386460) AGAP (test code = 2-16 9255405150) BUN (test code = 18 mg/dL 7-23 0649771914) GLUCOSE (test code = 96 mg/dL 70-110 8910337054) CREATININE (test code = 0.67 mg/dL 0.6-1.25 9850373213) CALCIUM (test code = 8.5 mg/dL 8.6-10.6 L 2354090659) eGFR Calculation mL/min/1.73m2 (Non-) (test code = 5802992291) eGFR Calculation mL/min/1.73m2 () (test code = 0535588317) GILBERTO (test code = GILBERTO) Association of [...] tests). Lab Interpretation Abnormal (test code = 25852-4) [facility] Ftgmh5316-43-01 15:02:00 Test Item Value Reference Range Interpretation Comments MAGNESIUM (test code = 3789780861) 1.8 mg/dL 1.7-2.4 Lab Interpretation (test code = Normal 61365-0) [facility] America[facility] Zfvke5493-92-07 15:02:00 Test Item Value Reference Range Interpretation Comments PHOSPHORUS (test code = 2338607022) 3.2 mg/dL 2.5-5 Lab Interpretation (test code = Normal 21186-7) [facility] America[facility] with Uahddcwjbgxz4713-17-78 10:41:00 Test Item Value Reference Range Interpretation [...] RDW-SD (test code = 47.0 fL 38.5-51.6 64636-1) RDW-CV (test code = 15.2 % 12.1-15.4 788-0) PLT (test code = See_Comment H [Automated 777-3) message] The sy stem which generated this result transmitted reference range : 150 - 328 10*3/ ?L. The reference r meredith was not used to interpret this result as normal/abnormal . MPV (test code = 9.1 fL 9.8-13 L 88472-4) NRBC/100 WBC (test See_Comment [Automat ed code = 2327675737) message] The system which generated this result transmitted reference range : 0.0 - 10.0 /100 WBCs. The refer ence range was not u sed to interpret th is result as normal/abnormal . NRBC x10^3 (test code <0.01 See_Comment [Auto mated = 1118809094) message] The s ystem which generated this result transmitted reference range : 10*3/?L. The reference range was not used to interpret this result as normal/abnormal . GRAN MAT (NEUT) % 77.3 % (test code = 770-8) IMM GRAN % (test code 0.60 % = 2034445428) LYMPH % (test code = 11.6 % 736-9) MONO % (test code = 9.5 % 5905-5) EOS % (test code = 0.8 % 713-8) BASO % (test code = 0.2 % 706-2) GRAN MAT x10^3(ANC) 6.69 10*3/uL 1.99-6.95 (test code = 7465875930) IMM GRAN x10^3 (test 0.05 10*3/uL 0-0.06 code = 2402798534) LYMPH x10^3 (test code 1.00 10*3/uL 1.09-3.23 L = 731-0) MONO x10^3 (test code 0.82 10*3/uL 0.36-1.02 = 742-7) EOS x10^3 (test code = 0.07 10*3/uL 0.06-0.53 711-2) BASO x10^3 (test code <0.03 0.01-0.09 = 704-7) Lab Interpretation Abnormal (test code = 73475-4) [facility] RBC (in units), 1 Units 2020-05-05 15:59:33 Test Item Value Reference Range Interpretation Comments Cross Match Result Compatible (test code = 4409) ISBT Blood Type Code (test code = 534886) Unit Blood Type (test O Pos code = 4410) Unit Number (test [id number] code = 4411) Blood Expiration Date & Time (test code = 610717) Status Information Issued (test code = 4412) Product Red Blood Cells Identification (test code = 4413) Product Code (test [id number] Performed at [facility] code = 4414) Laboratory Services - [facility] Blood Mfrp148 [facility] [address]Zpyl Free: [phone] A No. [id number] [facility] and Screen - ONCE [id number] 11:34:29 Test Item Value Reference Range Interpretation Comments ABO & RH (test code O POSITIVE Performe d at [facility] = 20) Laboratory Serv [facility] Blood [facility]3 [address] [facility] [address]Rhcp Free: [phone] A No. [id number] IAT (test code = Negative Performed a t [facility] 1185) Laboratory Serv [facility] Blood [facility]3 [address] [facility] [address]Ordj Free: [phone] A No. [id number] [facility]2020-09-12 10:19:00 Test Item Value Reference Range Interpretation Comments PALB (test code = 82259-3) 8.0 mg/dL 18-45 L Lab Interpretation (test code = Abnormal 66794-7) [facility] Met[facility] (NA, K, CL, CO2, GLUCOSE, BUN, CREATININE, CA)2020-05-05 10:12:00 Test Item Value Reference Range Interpretation Comments NA (test code = 135 mmol/L 135-145 5771261100) K (test code = 4.1 mmol/L 3.5-5 0569055588) CL (test code = 106 mmol/L 98-108 4357366438) CO2 TOTAL (test code = 22 mmol/L 23-31 L 0540344429) AGAP (test code = 2-16 5184623764) BUN (test code = 25 mg/dL 7-23 H 5221782386) GLUCOSE (test code = 91 mg/dL 70-110 8847897663) CREATININE (test code = 0.68 mg/dL 0.6-1.25 0685800182) CALCIUM (test code = 7.4 mg/dL 8.6-10.6 L 8923315716) eGFR Calculation mL/min/1.73m2 (Non-) (test code = 4792867944) eGFR Calculation mL/min/1.73m2 () (test code = 4557925528) GILBERTO (test code = GILBERTO) Association of [...] tests). Lab Interpretation Abnormal (test code = 55224-3) [facility] AmericaMagnesium [id number] 10:12:00 Test Item Value Reference Range Interpretation Comments MAGNESIUM (test code = 3082594994) 1.8 mg/dL 1.7-2.4 Lab Interpretation (test code = Normal 45331-3) [facility] AmericaPhosphorus [id number] 10:12:00 Test Item Value Reference Range Interpretation Comments PHOSPHORUS (test code = 2194639092) 3.1 mg/dL 2.5-5 Lab Interpretation (test code = Normal 64655-2) [facility] with [id number] 09:18:00 Test Item Value Reference Range Interpretation [...] RDW-SD (test code = 48.4 fL 38.5-51.6 25420-5) RDW-CV (test code = 15.7 % 12.1-15.4 H 788-0) PLT (test code = See_Comment H [Automated 777-3) message] The sy stem which generated this result transmitted reference range : 150 - 328 10*3/ ?L. The reference r meredith was not used to interpret this result as normal/abnormal . MPV (test code = 9.1 fL 9.8-13 L 17163-0) NRBC/100 WBC (test See_Comment [Automat ed code = 6975530923) message] The system which generated this result transmitted reference range : 0.0 - 10.0 /100 WBCs. The refer ence range was not u sed to interpret th is result as normal/abnormal . NRBC x10^3 (test code <0.01 See_Comment [Auto mated = 3751547336) message] The s ystem which generated this result transmitted reference range : 10*3/?L. The reference range was not used to interpret this result as normal/abnormal . GRAN MAT (NEUT) % 79.0 % (test code = 770-8) IMM GRAN % (test code 0.70 % = 8731449307) LYMPH % (test code = 10.6 % 736-9) MONO % (test code = 8.9 % 5905-5) EOS % (test code = 0.5 % 713-8) BASO % (test code = 0.3 % 706-2) GRAN MAT x10^3(ANC) 7.81 10*3/uL 1.99-6.95 H (test code = 4521432538) IMM GRAN x10^3 (test 0.07 10*3/uL 0-0.06 H code = 6674568619) LYMPH x10^3 (test code 1.05 10*3/uL 1.09-3.23 L = 731-0) MONO x10^3 (test code 0.88 10*3/uL 0.36-1.02 = 742-7) EOS x10^3 (test code = 0.05 10*3/uL 0.06-0.53 L 711-2) BASO x10^3 (test code 0.03 10*3/uL 0.01-0.09 = 704-7) Lab Interpretation Abnormal (test code = 01740-0) [facility] America[facility]INALYSIS2020-09-12 06:03:00 Test Item Value Reference Range Interpretation Comments APPEARANCE (test code = Hazy Clear A 7675378021) COLOR (test code = Yellow Yellow 0849300047) PH (test code = 4.8-8.0 4760038006) SP GRAVITY (test code = 1.003-1.030 H 3718916780) GLU U QUAL (test code = Normal Normal 8876642391) BLOOD (test code = Negative Negative 1199884730) KETONES (test code = Negative Negative 0324980054) PROTEIN (test code = Negative Negative 2887-8) UROBILIN (test code = Normal Normal 0048864770) BILIRUBIN (test code = Negative Negative 6496146074) NITRITE (test code = Negative Negative 6753506251) LEUK ROGER (test code = Negative Negative 9176729457) RBC/HPF (test code = See_Comment H [Autom ated message] 2582948023) The system niiu generated this result transmitted ref erence range: 0 - 3 HP F. The reference range was not used to int erpret this result as normal/abnormal . WBC/HPF (test code = See_Comment [Autom ated message] 0852684944) The system niiu generated this result transmitted ref erence range: 0 - 5 HP F. The reference range was not used to int erpret this result as normal/abnormal . BACTERIA (test code = Few Negative A 0297181605) MUCOUS (test code = Slight Negative LPF A 3981304467) CA OXALATE (test code = See_Comment H [Au tomated message] 1430697396) The system niiu generated this result transmitted ref erence range: <=1 HPF. The reference range was not used to int erpret this result as normal/abnormal . Lab Interpretation (test Abnormal code = 12932-7) [facility] AmericaCT ABDOMEN PELVIS W [id number] 04:56:59 1. ?Interval removal of left subdiaphragmatic, [...] reviewed this study and agree with the abovereport.[facility] AmericaCOVID-19 (ID NOW RAPID TESTING)2020-05-05 03:40:00 Test Item Value Reference Range Interpretation Comments SARS-CoV-2 Rapid ID NOW Not Detected Not Detected (test code = 84773-9) GILBERTO (test code = GILBERTO) ID NOW COVID-19 Assay is an isothermal nucleic acid amplification test intended for the qualitative detection of nucleic acid from SARS-CoV-2 viral RNA in nasopharyngeal (FLOAT [employer]ILDER) specimens. It is used under Emergency Use [...] indicated. Lab Interpretation Normal (test code = 35093-1) [facility]. METABOLIC PANEL (67149)2020-05-05 03:02:00 Test Item Value Reference Range Interpretation Comments NA (test code = 134 mmol/L 135-145 L 2985322006) K (test code = 4.7 mmol/L 3.5-5 1366069943) CL (test code = 99 mmol/L 98-108 0753404706) CO2 TOTAL (test code = 24 mmol/L 23-31 1470055361) AGAP (test code = 2-16 3391147839) BUN (test code = 37 mg/dL 7-23 H 5356513839) GLUCOSE (test code = 105 mg/dL 70-110 6176688958) CREATININE (test code = 0.94 mg/dL 0.6-1.25 9441449496) TOTAL BILI (test code = 0.5 mg/dL 0.1-1.7 5217360420) CALCIUM (test code = 8.8 mg/dL 8.6-10.6 6935685697) T PROTEIN (test code = 6.2 g/dL 6.3-8.2 L 9120926656) ALBUMIN (test code = 3.0 g/dL 3.5-5 L 3053245560) ALK PHOS (test code = 150 U/L 34-122 H 9579993989) ALTv (test code = 28 U/L 5-50 1742-6) AST(SGOT) (test code = 23 U/L 13-40 6304142559) eGFR Calculation mL/min/1.73m2 (Non-) (test code = 7268545084) eGFR Calculation mL/min/1.73m2 () (test code = 0094741197) GILBERTO (test code = GILBERTO) Association of [...] tests). Lab Interpretation Abnormal (test code = 20167-6) [facility] AmericaLIPASE2020-09-12 03:02:00 Test Item Value Reference Range Interpretation Comments LIPASE (test code = 0612124396) 323 U/L 0-220 H Lab Interpretation (test code = Abnormal 57691-8) [facility] AmericaCBC WITH [id number] 02:43:00 Test Item Value Reference Range Interpretation [...] RDW-SD (test code = 45.7 fL 38.5-51.6 39637-6) RDW-CV (test code = 15.4 % 12.1-15.4 788-0) PLT (test code = See_Comment H [Automated 777-3) message] The system which generated this result transmit dain reference range : 150 - 328 10*3/ ?L. The reference range was not u sed to interpret th is result as normal/abnormal . MPV (test code = 8.9 fL 9.8-13 L 36556-2) NRBC/100 WBC (test See_Comment [Automat ed code = 1215715492) message] The system which generated this result transmit dain reference range : 0.0 - 10.0 /100 WBCs. The reference range was not used to interpret this result as normal/abnormal . NRBC x10^3 (test code <0.01 See_Comment [Auto mated = 1171686070) message] The system which generated this result transmit dain reference range : 10*3/?L. The reference range was not used to interpret this result as normal/abnormal . GRAN MAT (NEUT) % 82.6 % (test code = 770-8) IMM GRAN % (test code 0.60 % = 6384601023) LYMPH % (test code = 8.1 % 736-9) MONO % (test code = 8.1 % 5905-5) EOS % (test code = 0.4 % 713-8) BASO % (test code = 0.2 % 706-2) GRAN MAT x10^3(ANC) 11.18 10*3/uL 1.99-6.95 H (test code = 8652026782) IMM GRAN x10^3 (test 0.08 10*3/uL 0-0.06 H code = 9085292485) LYMPH x10^3 (test code 1.10 10*3/uL 1.09-3.23 = 731-0) MONO x10^3 (test code 1.09 10*3/uL 0.36-1.02 H = 742-7) EOS x10^3 (test code = 0.05 10*3/uL 0.06-0.53 L 711-2) BASO x10^3 (test code 0.03 10*3/uL 0.01-0.09 = 704-7) Lab Interpretation Abnormal (test code = 36651-3) [facility] METABOLIC PANEL (NA, K, CL, CO2, GLUCOSE, BUN, CREATININE, CA)2020-05-01 12:25:00 Test Item Value Reference Range Interpretation Comments NA (test code = 131 mmol/L 135-145 L 7506131348) K (test code = 4.7 mmol/L 3.5-5 2730345871) CL (test code = 97 mmol/L 98-108 L 5822167001) CO2 TOTAL (test code = 25 mmol/L 23-31 2805367078) AGAP (test code = 2-16 5407243539) BUN (test code = 30 mg/dL 7-23 H 2188842093) GLUCOSE (test code = 111 mg/dL 70-110 H 4783337022) CREATININE (test code = 0.69 mg/dL 0.6-1.25 1025449775) CALCIUM (test code = 9.3 mg/dL 8.6-10.6 1736427473) eGFR Calculation mL/min/1.73m2 (Non-) (test code = 4274592757) eGFR Calculation mL/min/1.73m2 () (test code = 4850238344) GILBERTO (test code = GILBERTO) Association of [...] tests). Lab Interpretation Abnormal (test code = 15787-3) [facility] AmericaMAGNESIUM2020-09-08 12:07:00 Test Item Value Reference Range Interpretation Comments MAGNESIUM (test code = 8266946304) 2.3 mg/dL 1.7-2.4 Lab Interpretation (test code = Normal 24002-8) [facility] AmericaPHOSPHORUS2020-09-08 12:07:00 Test Item Value Reference Range Interpretation Comments PHOSPHORUS (test code = 9355180572) 4.6 mg/dL 2.5-5 Lab Interpretation (test code = Normal 30489-3) [facility] AmericaCB WITH [id number] 11:44:00 Test Item Value Reference Range Interpretation [...] RDW-SD (test code = 44.9 fL 38.5-51.6 33520-8) RDW-CV (test code = 14.8 % 12.1-15.4 788-0) PLT (test code = See_Comment H [Automated 777-3) message] The system which generated this result transmit dain reference range : 150 - 328 10*3/ ?L. The reference range was not u sed to interpret th is result as normal/abnormal . MPV (test code = 9.1 fL 9.8-13 L 43684-8) NRBC/100 WBC (test See_Comment [Automat ed code = 0437950345) message] The system which generated this result transmit dain reference range : 0.0 - 10.0 /100 WBCs. The reference range was not used to interpret this result as normal/abnormal . NRBC x10^3 (test code <0.01 See_Comment [Auto mated = 8316478942) message] The system which generated this result transmit dain reference range : 10*3/?L. The reference range was not used to interpret this result as normal/abnormal . GRAN MAT (NEUT) % 81.4 % (test code = 770-8) IMM GRAN % (test code 0.70 % = 0732726814) LYMPH % (test code = 8.7 % 736-9) MONO % (test code = 8.5 % 5905-5) EOS % (test code = 0.3 % 713-8) BASO % (test code = 0.4 % 706-2) GRAN MAT x10^3(ANC) 12.01 10*3/uL 1.99-6.95 H (test code = 7788513958) IMM GRAN x10^3 (test 0.10 10*3/uL 0-0.06 H code = 4975086992) LYMPH x10^3 (test code 1.28 10*3/uL 1.09-3.23 = 731-0) MONO x10^3 (test code 1.25 10*3/uL 0.36-1.02 H = 742-7) EOS x10^3 (test code = 0.04 10*3/uL 0.06-0.53 L 711-2) BASO x10^3 (test code 0.06 10*3/uL 0.01-0.09 = 704-7) Lab Interpretation Abnormal (test code = 25288-0) [facility] METABOLIC PANEL (NA, K, CL, CO2, GLUCOSE, BUN, CREATININE, CA)2020-04-29 12:08:00 Test Item Value Reference Range Interpretation Comments NA (test code = 130 mmol/L 135-145 L 2214328900) K (test code = 5.0 mmol/L 3.5-5 7621369850) CL (test code = 94 mmol/L 98-108 L 6603919566) CO2 TOTAL (test code = 27 mmol/L 23-31 0273971091) AGAP (test code = 2-16 1581160207) BUN (test code = 35 mg/dL 7-23 H 6192763649) GLUCOSE (test code = 116 mg/dL 70-110 H 7541795912) CREATININE (test code = 0.76 mg/dL 0.6-1.25 4764936385) CALCIUM (test code = 9.0 mg/dL 8.6-10.6 4307819722) eGFR Calculation mL/min/1.73m2 (Non-) (test code = 1523362617) eGFR Calculation mL/min/1.73m2 () (test code = 6804766197) GILBERTO (test code = GILBERTO) Association of [...] tests). Lab Interpretation Abnormal (test code = 61659-0) [facility] America[facility]2020-09-06 12:01:00 Test Item Value Reference Range Interpretation Comments MAGNESIUM (test code = 3277550731) 2.3 mg/dL 1.7-2.4 Lab Interpretation (test code = Normal 17978-6) [facility] AmericaPHOSPHORUS2020-09-06 12:01:00 Test Item Value Reference Range Interpretation Comments PHOSPHORUS (test code = 7796670343) 4.5 mg/dL 2.5-5 Lab Interpretation (test code = Normal 77303-6) [facility] America[facility] WITH [id number] 11:52:00 Test Item Value Reference Range Interpretation [...] RDW-SD (test code = 44.4 fL 38.5-51.6 01170-4) RDW-CV (test code = 14.7 % 12.1-15.4 788-0) PLT (test code = See_Comment H [Automated 777-3) message] The system which generated this result transmit dain reference range : 150 - 328 10*3/ ?L. The reference range was not u sed to interpret th is result as normal/abnormal . MPV (test code = 9.1 fL 9.8-13 L 86754-4) NRBC/100 WBC (test See_Comment [Automat ed code = 5656255315) message] The system which generated this result transmit dain reference range : 0.0 - 10.0 /100 WBCs. The reference range was not used to interpret this result as normal/abnormal . NRBC x10^3 (test code <0.01 See_Comment [Auto mated = 0901605843) message] The system which generated this result transmit dain reference range : 10*3/?L. The reference range was not used to interpret this result as normal/abnormal . GRAN MAT (NEUT) % 82.5 % (test code = 770-8) IMM GRAN % (test code 1.30 % = 2904185658) LYMPH % (test code = 7.1 % 736-9) MONO % (test code = 8.5 % 5905-5) EOS % (test code = 0.3 % 713-8) BASO % (test code = 0.3 % 706-2) GRAN MAT x10^3(ANC) 14.27 10*3/uL 1.99-6.95 H (test code = 9582214714) IMM GRAN x10^3 (test 0.23 10*3/uL 0-0.06 H code = 7961595605) LYMPH x10^3 (test code 1.23 10*3/uL 1.09-3.23 = 731-0) MONO x10^3 (test code 1.47 10*3/uL 0.36-1.02 H = 742-7) EOS x10^3 (test code = 0.05 10*3/uL 0.06-0.53 L 711-2) BASO x10^3 (test code 0.06 10*3/uL 0.01-0.09 = 704-7) Lab Interpretation Abnormal (test code = 57549-2) [facility] METABOLIC PANEL (NA, K, CL, CO2, GLUCOSE, BUN, CREATININE, CA)2020-04-28 10:15:00 Test Item Value Reference Range Interpretation Comments NA (test code = 130 mmol/L 135-145 L 8787866286) K (test code = 5.3 mmol/L 3.5-5 H 3817882722) CL (test code = 91 mmol/L 98-108 L 2985174264) CO2 TOTAL (test code = 29 mmol/L 23-31 3080787094) AGAP (test code = 2-16 2081435625) BUN (test code = 32 mg/dL 7-23 H 0492625959) GLUCOSE (test code = 101 mg/dL 70-110 1606255877) CREATININE (test code = 0.74 mg/dL 0.6-1.25 2439213541) CALCIUM (test code = 9.5 mg/dL 8.6-10.6 1334977419) eGFR Calculation mL/min/1.73m2 (Non-) (test code = 4376452647) eGFR Calculation mL/min/1.73m2 () (test code = 7658651607) GILBERTO (test code = GILBERTO) Association of [...] tests). Lab Interpretation Abnormal (test code = 66500-4) [facility]2020-09-05 10:12:00 Test Item Value Reference Range Interpretation Comments MAGNESIUM (test code = 5242123735) 2.3 mg/dL 1.7-2.4 Lab Interpretation (test code = Normal 39776-2) [facility] WITH [id number] 09:55:00 Test Item Value Reference Range Interpretation Comments WBC (test code = See_Comment H [Automated 1190-2) message] The system which generated this result [...] RDW-SD (test code = 45.1 fL 38.5-51.6 60111-9) RDW-CV (test code = 14.7 % 12.1-15.4 788-0) PLT (test code = See_Comment H [Automated 777-3) message] The system which generated this result transmit dain reference range : 150 - 328 10*3/ ?L. The reference range was not u sed to interpret th is result as normal/abnormal . MPV (test code = 9.5 fL 9.8-13 L 45134-9) NRBC/100 WBC (test See_Comment [Automat ed code = 6740463310) message] The system which generated this result transmit dain reference range : 0.0 - 10.0 /100 WBCs. The reference range was not used to interpret this result as normal/abnormal . NRBC x10^3 (test code <0.01 See_Comment [Auto mated = 6623392790) message] The system which generated this result transmit dain reference range : 10*3/?L. The reference range was not used to interpret this result as normal/abnormal . GRAN MAT (NEUT) % 81.1 % (test code = 770-8) IMM GRAN % (test code 1.40 % = 3736150195) LYMPH % (test code = 8.6 % 736-9) MONO % (test code = 7.9 % 5905-5) EOS % (test code = 0.5 % 713-8) BASO % (test code = 0.5 % 706-2) GRAN MAT x10^3(ANC) 14.68 10*3/uL 1.99-6.95 H (test code = 8744936561) IMM GRAN x10^3 (test 0.25 10*3/uL 0-0.06 H code = 8765524234) LYMPH x10^3 (test code 1.55 10*3/uL 1.09-3.23 = 731-0) MONO x10^3 (test code 1.43 10*3/uL 0.36-1.02 H = 742-7) EOS x10^3 (test code = 0.09 10*3/uL 0.06-0.53 711-2) BASO x10^3 (test code 0.09 10*3/uL 0.01-0.09 = 704-7) Lab Interpretation Abnormal (test code = 95817-3) [facility] METABOLIC PANEL (NA, K, CL, CO2, GLUCOSE, BUN, CREATININE, CA)2020-04-27 10:20:00 Test Item Value Reference Range Interpretation Comments NA (test code = 130 mmol/L 135-145 L 5390159032) K (test code = 4.5 mmol/L 3.5-5 2501935913) CL (test code = 93 mmol/L 98-108 L 5803494880) CO2 TOTAL (test code = 28 mmol/L 23-31 7478555122) AGAP (test code = 2-16 2746957227) BUN (test code = 31 mg/dL 7-23 H 9054550382) GLUCOSE (test code = 102 mg/dL 70-110 4185913590) CREATININE (test code = 0.81 mg/dL 0.6-1.25 9636792758) CALCIUM (test code = 9.0 mg/dL 8.6-10.6 2832046271) eGFR Calculation mL/min/1.73m2 (Non-) (test code = 2927894287) eGFR Calculation mL/min/1.73m2 () (test code = 6244857497) GILBERTO (test code = GILBERTO) Association of [...] tests). Lab Interpretation Abnormal (test code = 46107-6) [facility]2020-09-04 10:20:00 Test Item Value Reference Range Interpretation Comments MAGNESIUM (test code = 2095529250) 2.2 mg/dL 1.7-2.4 Lab Interpretation (test code = Normal 58870-6) [facility] WITH [id number] 09:49:00 Test Item Value Reference Range Interpretation Comments WBC (test code = See_Comment H [Automated 3817-2) message] The system which generated this result transmit dain reference range : 4.20 - 10.70 10*3/?L. The reference range was not used to interpret this result as normal/abnormal . RBC (test code = See_Comment L [Automated 159-8) message] The system which generated this result [...] RDW-SD (test code = 45.2 fL 38.5-51.6 51529-6) RDW-CV (test code = 14.5 % 12.1-15.4 788-0) PLT (test code = See_Comment H [Automated 777-3) message] The system which generated this result transmit dain reference range : 150 - 328 10*3/ ?L. The reference range was not u sed to interpret th is result as normal/abnormal . MPV (test code = 9.0 fL 9.8-13 L 66742-2) NRBC/100 WBC (test See_Comment [Automat ed code = 1259152967) message] The system which generated this result transmit dain reference range : 0.0 - 10.0 /100 WBCs. The reference range was not used to interpret this result as normal/abnormal . NRBC x10^3 (test code <0.01 See_Comment [Auto mated = 3664000225) message] The system which generated this result transmit dain reference range : 10*3/?L. The reference range was not used to interpret this result as normal/abnormal . GRAN MAT (NEUT) % 80.9 % (test code = 770-8) IMM GRAN % (test code 1.30 % = 2136413002) LYMPH % (test code = 8.9 % 736-9) MONO % (test code = 7.7 % 5905-5) EOS % (test code = 0.6 % 713-8) BASO % (test code = 0.6 % 706-2) GRAN MAT x10^3(ANC) 13.18 10*3/uL 1.99-6.95 H (test code = 5874801230) IMM GRAN x10^3 (test 0.21 10*3/uL 0-0.06 H code = 6570123723) LYMPH x10^3 (test code 1.45 10*3/uL 1.09-3.23 = 731-0) MONO x10^3 (test code 1.26 10*3/uL 0.36-1.02 H = 742-7) EOS x10^3 (test code = 0.09 10*3/uL 0.06-0.53 711-2) BASO x10^3 (test code 0.10 10*3/uL 0.01-0.09 H = 704-7) Lab Interpretation Abnormal (test code = 55442-0) [facility] METABOLIC PANEL (NA, K, CL, CO2, GLUCOSE, BUN, CREATININE, CA)2020-04-26 11:29:00 Test Item Value Reference Range Interpretation Comments NA (test code = 133 mmol/L 135-145 L 0967164995) K (test code = 4.7 mmol/L 3.5-5 5235829588) CL (test code = 98 mmol/L 98-108 4372297221) CO2 TOTAL (test code = 25 mmol/L 23-31 9755393658) AGAP (test code = 2-16 4471185754) BUN (test code = 26 mg/dL 7-23 H 4985307785) GLUCOSE (test code = 97 mg/dL 70-110 9894329656) CREATININE (test code = 0.73 mg/dL 0.6-1.25 5842486454) CALCIUM (test code = 8.7 mg/dL 8.6-10.6 4304645713) eGFR Calculation mL/min/1.73m2 (Non-) (test code = 8628554053) eGFR Calculation mL/min/1.73m2 () (test code = 1089601904) GILBERTO (test code = GILBERTO) Association of [...] tests). Lab Interpretation Abnormal (test code = 56010-7) [facility] 11:29:00 Test Item Value Reference Range Interpretation Comments MAGNESIUM (test code = 5599018749) 2.1 mg/dL 1.7-2.4 Lab Interpretation (test code = Normal 61650-4) [facility] WITH [id number] 10:27:00 Test Item Value Reference Range Interpretation Comments WBC (test code = See_Comment H [Automated 7590-2) message] The system which generated this result transmit dain reference range : 4.20 - 10.70 10*3/?L. The reference range was not used to interpret this result as normal/abnormal . RBC (test code = See_Comment L [Automated 469-8) message] The system which generated this result [...] RDW-SD (test code = 45.4 fL 38.5-51.6 74578-2) RDW-CV (test code = 14.5 % 12.1-15.4 788-0) PLT (test code = See_Comment H [Automated 777-3) message] The system which generated this result transmit dain reference range : 150 - 328 10*3/ ?L. The reference range was not u sed to interpret th is result as normal/abnormal . MPV (test code = 9.3 fL 9.8-13 L 08865-5) NRBC/100 WBC (test See_Comment [Automat ed code = 6371551319) message] The system which generated this result transmit dain reference range : 0.0 - 10.0 /100 WBCs. The reference range was not used to interpret this result as normal/abnormal . NRBC x10^3 (test code <0.01 See_Comment [Auto mated = 4075161700) message] The system which generated this result transmit dain reference range : 10*3/?L. The reference range was not used to interpret this result as normal/abnormal . GRAN MAT (NEUT) % 79.6 % (test code = 770-8) IMM GRAN % (test code 1.30 % = [id number]) LYMPH % (test code = 8.6 % 736-9) MONO % (test code = 9.3 % 5905-5) EOS % (test code = 0.8 % 713-8) BASO % (test code = 0.4 % 706-2) GRAN MAT x10^3(ANC) 12.46 10*3/uL 1.99-6.95 H (test code = 0326062929) IMM GRAN x10^3 (test 0.21 10*3/uL 0-0.06 H code = [id number]) LYMPH x10^3 (test code 1.34 10*3/uL 1.09-3.23 = 731-0) MONO x10^3 (test code 1.45 10*3/uL 0.36-1.02 H = 742-7) EOS x10^3 (test code = 0.13 10*3/uL 0.06-0.53 711-2) BASO x10^3 (test code 0.07 10*3/uL 0.01-0.09 = 704-7) Lab Interpretation Abnormal (test code = 90242-0) [facility] METABOLIC PANEL (NA, K, CL, CO2, GLUCOSE, BUN, CREATININE, CA)2020-04-25 10:03:00 Test Item Value Reference Range Interpretation Comments NA (test code = 133 mmol/L 135-145 L [id number]) K (test code = 4.6 mmol/L 3.5-5 0841117355) CL (test code = 96 mmol/L 98-108 L 7636088876) CO2 TOTAL (test code = 27 mmol/L 23-31 4598279446) AGAP (test code = 2-16 6536955804) BUN (test code = 21 mg/dL 7-23 2192685939) GLUCOSE (test code = 108 mg/dL 70-110 7794851686) CREATININE (test code = 0.76 mg/dL 0.6-1.25 4108714924) CALCIUM (test code = 9.5 mg/dL 8.6-10.6 1964413402) eGFR Calculation mL/min/1.73m2 (Non-) (test code = 5899362830) eGFR Calculation mL/min/1.73m2 () (test code = 3160911934) GILBERTO (test code = GILBERTO) Association of [...] tests). Lab Interpretation Abnormal (test code = 18316-4) [facility] 10:03:00 Test Item Value Reference Range Interpretation Comments MAGNESIUM (test code = 6593278156) 2.4 mg/dL 1.7-2.4 Lab Interpretation (test code = Normal 35754-4) [facility] WITH [id number] 09:48:00 Test Item Value Reference Range Interpretation Comments WBC (test code = See_Comment H [Automated 4790-2) message] The system which generated this result [...] RDW-SD (test code = 45.7 fL 38.5-51.6 89143-5) RDW-CV (test code = 14.3 % 12.1-15.4 788-0) PLT (test code = See_Comment HH [Automated 777-3) message] The system which generated this result transmit dain reference range : 150 - 328 10*3/ ?L. The reference range was not u sed to interpret th is result as normal/abnormal . MPV (test code = 9.1 fL 9.8-13 L 82840-7) NRBC/100 WBC (test See_Comment [Automat ed code = 9781303089) message] The system which generated this result transmit dain reference range : 0.0 - 10.0 /100 WBCs. The reference range was not used to interpret this result as normal/abnormal . NRBC x10^3 (test code <0.01 See_Comment [Auto mated = 4253926224) message] The system which generated this result transmit dain reference range : 10*3/?L. The reference range was not used to interpret this result as normal/abnormal . GRAN MAT (NEUT) % 78.9 % (test code = 770-8) IMM GRAN % (test code 1.70 % = 7534812339) LYMPH % (test code = 8.7 % 736-9) MONO % (test code = 9.1 % 5905-5) EOS % (test code = 0.9 % 713-8) BASO % (test code = 0.7 % 706-2) GRAN MAT x10^3(ANC) 11.96 10*3/uL 1.99-6.95 H (test code = 8719087246) IMM GRAN x10^3 (test 0.26 10*3/uL 0-0.06 H code = 8443065546) LYMPH x10^3 (test code 1.32 10*3/uL 1.09-3.23 = 731-0) MONO x10^3 (test code 1.38 10*3/uL 0.36-1.02 H = 742-7) EOS x10^3 (test code = 0.13 10*3/uL 0.06-0.53 711-2) BASO x10^3 (test code 0.11 10*3/uL 0.01-0.09 H = 704-7) Lab Interpretation Abnormal (test code = 37370-4) [facility] WITH [id number] 10:40:00 Test Item Value Reference Range Interpretation [...] RDW-SD (test code = 46.3 fL 38.5-51.6 67799-4) RDW-CV (test code = 14.5 % 12.1-15.4 788-0) PLT (test code = See_Comment HH [Automated 777-3) message] The sy stem which generated this result transmitted reference range : 150 - 328 10*3/ ?L. The reference r meredith was not used to interpret this result as normal/abnormal . MPV (test code = 9.1 fL 9.8-13 L 14027-7) NRBC/100 WBC (test See_Comment [Automat ed code = 1160850694) message] The system which generated this result transmitted reference range : 0.0 - 10.0 /100 WBCs. The refer ence range was not u sed to interpret th is result as normal/abnormal . NRBC x10^3 (test code <0.01 See_Comment [Auto mated = 3153834911) message] The s ystem which generated this result transmitted reference range : 10*3/?L. The reference range was not used to interpret this result as normal/abnormal . GRAN MAT (NEUT) % 74.7 % (test code = 770-8) IMM GRAN % (test code 2.00 % = 8663732671) LYMPH % (test code = 10.0 % 736-9) MONO % (test code = 11.4 % 5905-5) EOS % (test code = 1.3 % 713-8) BASO % (test code = 0.6 % 706-2) GRAN MAT x10^3(ANC) 9.44 10*3/uL 1.99-6.95 H (test code = 5574387175) IMM GRAN x10^3 (test 0.25 10*3/uL 0-0.06 H code = 4597756277) LYMPH x10^3 (test code 1.26 10*3/uL 1.09-3.23 = 731-0) MONO x10^3 (test code 1.44 10*3/uL 0.36-1.02 H = 742-7) EOS x10^3 (test code = 0.16 10*3/uL 0.06-0.53 711-2) BASO x10^3 (test code 0.07 10*3/uL 0.01-0.09 = 704-7) Lab Interpretation Abnormal (test code = 41747-7) [facility] METABOLIC PANEL (NA, K, CL, CO2, GLUCOSE, BUN, CREATININE, CA)2020-04-24 10:39:00 Test Item Value Reference Range Interpretation Comments NA (test code = 133 mmol/L 135-145 L 2698006127) K (test code = 4.3 mmol/L 3.5-5 9298044517) CL (test code = 99 mmol/L 98-108 2208107751) CO2 TOTAL (test code = 29 mmol/L 23-31 4373948521) AGAP (test code = 2-16 9086711118) BUN (test code = 20 mg/dL 7-23 6202208349) GLUCOSE (test code = 109 mg/dL 70-110 1539847554) CREATININE (test code = 0.78 mg/dL 0.6-1.25 4684208518) CALCIUM (test code = 8.4 mg/dL 8.6-10.6 L 1877319599) eGFR Calculation mL/min/1.73m2 (Non-) (test code = 9872330449) eGFR Calculation mL/min/1.73m2 () (test code = 2024262783) GILBERTO (test code = GILBERTO) Association of [...] tests). Lab Interpretation Abnormal (test code = 40333-9) [facility]01 10:39:00 Test Item Value Reference Range Interpretation Comments MAGNESIUM (test code = 0320001375) 2.2 mg/dL 1.7-2.4 Lab Interpretation (test code = Normal 23970-1) [facility] AmericaCT ABDOMEN PELVIS W [id number] 09:30:06 1. ?Overall, no significant change in [...] reviewed this study and agree with theabove report.[facility] AmericaCT THORAX W [id number] 03:46:28 Acute pulmonary emboli in the anterior [...] andmorphology. No significant pericardial thickening or effusion. Vsupehkz-wi-nwclw cardiomediastinal shift. Scattered subcentimeter mediastinal and bilateral [...] andmorphology. No significant pericardial thickening or effusion. Zgwpdyzz-tg-yhsml cardiomediastinal shift.Scattered subcentimeter mediastinal and bilateral hilar [...] reviewed this study and agree with theabove report.[facility] AmericaCOVID-19 (ID NOW RAPID TESTING)2020-04-23 17:45:00 Test Item Value Reference Range Interpretation Comments SARS-CoV-2 Rapid ID NOW Not Detected Not Detected (test code = 88759-6) GILBERTO (test code = GILBERTO) ID NOW COVID-19 Assay is an isothermal nucleic acid amplification test intended for the qualitative detection of nucleic acid from SARS-CoV-2 viral RNA in nasopharyngeal (FLOAT [employer]ILDER) specimens. It is used under Emergency Use [...] indicated. Lab Interpretation Normal (test code = 27471-8) [facility]2020-08-31 17:40:00 Test Item Value Reference Range Interpretation Comments PALB (test code = 47053-4) 11.8 mg/dL 18-45 L Lab Interpretation (test code = Abnormal 38629-2) [facility] CHEST 1 [id number] 15:00:55 Stable appearance of left pleural effusion [...] reviewed this study and agree with theabove report.[facility] AmericaPOTASSIUM [id number] 14:14:00 Test Item Value Reference Range Interpretation Comments K (test code = 9635334764) 4.8 mmol/L 3.5-5 Lab Interpretation (test code = Normal 75150-5) [facility] WITH [id number] 11:30:00 Test Item Value Reference Range Interpretation [...] RDW-SD (test code = 45.0 fL 38.5-51.6 98210-4) RDW-CV (test code = 14.5 % 12.1-15.4 788-0) PLT (test code = See_Comment HH [Automated 777-3) message] The sy stem which generated this result transmitted reference range : 150 - 328 10*3/ ?L. The reference r meredith was not used to interpret this result as normal/abnormal . MPV (test code = 9.4 fL 9.8-13 L 22441-8) IPF % (test code = 1.6 % 1.2-10.7 Platelet count 9710865881) measured by fluorescence method. NRBC/100 WBC (test See_Comment [Automat ed code = 4854454549) message] The system which generated this result transmitted reference range : 0.0 - 10.0 /100 WBCs. The refer ence range was not u sed to interpret th is result as normal/abnormal . NRBC x10^3 (test code <0.01 See_Comment [Auto mated = 7515483262) message] The s ystem which generated this result transmitted reference range : 10*3/?L. The reference range was not used to interpret this result as normal/abnormal . GRAN MAT (NEUT) % 73.4 % (test code = 770-8) IMM GRAN % (test code 1.80 % = 9156217325) LYMPH % (test code = 12.6 % 736-9) MONO % (test code = 10.8 % 5905-5) EOS % (test code = 1.0 % 713-8) BASO % (test code = 0.4 % 706-2) GRAN MAT x10^3(ANC) 9.57 10*3/uL 1.99-6.95 H (test code = 9699608007) IMM GRAN x10^3 (test 0.24 10*3/uL 0-0.06 H code = 6111443411) LYMPH x10^3 (test code 1.64 10*3/uL 1.09-3.23 = 731-0) MONO x10^3 (test code 1.41 10*3/uL 0.36-1.02 H = 742-7) EOS x10^3 (test code = 0.13 10*3/uL 0.06-0.53 711-2) BASO x10^3 (test code 0.05 10*3/uL 0.01-0.09 = 704-7) Lab Interpretation Abnormal (test code = 18674-5) [facility] METABOLIC PANEL (NA, K, CL, CO2, GLUCOSE, BUN, CREATININE, CA)2020-04-23 10:52:00 Test Item Value Reference Range Interpretation Comments NA (test code = 132 mmol/L 135-145 L 1090940425) K (test code = 5.7 mmol/L 3.5-5 H 4463770044) CL (test code = 97 mmol/L 98-108 L 8507518281) CO2 TOTAL (test code = 26 mmol/L -31 5457600191) AGAP (test code = 2-16 6238751283) BUN (test code = 34 mg/dL 7-23 H 6272232641) GLUCOSE (test code = 101 mg/dL 70-110 2328049125) CREATININE (test code = 0.85 mg/dL 0.6-1.25 2350709786) CALCIUM (test code = 9.0 mg/dL 8.6-10.6 5381571492) eGFR Calculation mL/min/1.73m2 (Non-) (test code = 9637208007) eGFR Calculation mL/min/1.73m2 () (test code = 4031319839) GILBERTO (test code = GILBERTO) Association of [...] tests). Lab Interpretation Abnormal (test code = 66915-1) [facility] 10:52[facility]00 Test Item Value Reference Range Interpretation Comments MAGNESIUM (test code = 5426234973) 2.3 mg/dL 1.7-2.4 Lab Interpretation (test code = Normal 15825-3) [facility] 1 [id number] 13:26:55 FINDINGS/IMPRESSION: 1. ?A left pigtail chest [...] pleural effusion COMPARISON: Chest x-ray on 04/21/2020 [facility], Radiant Results Inft User - [...] reviewed this study and agree with theabove report.[facility] 1 VW 2020-04-22 13:24:27FINDINGS/IMPRESSION: 1. ?A [...] this study and agree with theabove report. [facility] (NA, K, CL, CO2, GLUCOSE, BUN, CREATININE, CA)2020-04-22 11:49:00 Test Item Value Reference Range Interpretation Comments NA (test code = 132 mmol/L 135-145 L 8213527645) K (test code = 4.7 mmol/L 3.5-5 4292831406) CL (test code = 97 mmol/L 98-108 L 0613126821) CO2 TOTAL (test code = 30 mmol/L 23-31 4204014523) AGAP (test code = 2-16 3275252177) BUN (test code = 28 mg/dL 7-23 H 2623980880) GLUCOSE (test code = 117 mg/dL 70-110 H 4967864045) CREATININE (test code = 0.88 mg/dL 0.6-1.25 6541089372) CALCIUM (test code = 8.8 mg/dL 8.6-10.6 7435663876) eGFR Calculation mL/min/1.73m2 (Non-) (test code = 4989777183) eGFR Calculation mL/min/1.73m2 () (test code = 5457786699) GILBERTO (test code = GILBERTO) Association of [...] tests). Lab Interpretation Abnormal (test code = 73399-5) [facility]2020-08-30 11:49:00 Test Item Value Reference Range Interpretation Comments MAGNESIUM (test code = 9669671712) 2.4 mg/dL 1.7-2.4 Lab Interpretation (test code = Normal 25942-1) [facility] WITH [id number] 11:23:00 Test Item Value Reference Range Interpretation Comments WBC (test code = See_Comment H [Automated 4190-2) message] The sy stem which generated this result transmitted reference range : 4.20 - 10.70 10*3/?L. The reference range was not used to interpret this result as normal/abnormal . RBC (test code = See_Comment L [Automated 3298) message] The sy stem which generated this [...] RDW-SD (test code = 44.9 fL 38.5-51.6 00389-5) RDW-CV (test code = 14.4 % 12.1-15.4 788-0) PLT (test code = See_Comment HH [Automated 777-3) message] The sy stem which generated this result transmitted reference range : 150 - 328 10*3/ ?L. The reference r meredith was not used to interpret this result as normal/abnormal . MPV (test code = 9.5 fL 9.8-13 L 87655-5) NRBC/100 WBC (test See_Comment [Automat ed code = 3708656504) message] The system which generated this result transmitted reference range : 0.0 - 10.0 /100 WBCs. The refer ence range was not u sed to interpret th is result as normal/abnormal . NRBC x10^3 (test code <0.01 See_Comment [Auto mated = 2074320002) message] The s ystem which generated this result transmitted reference range : 10*3/?L. The reference range was not used to interpret this result as normal/abnormal . GRAN MAT (NEUT) % 80.3 % (test code = 770-8) IMM GRAN % (test code 1.50 % = 7952865061) LYMPH % (test code = 7.2 % 736-9) MONO % (test code = 9.7 % 5905-5) EOS % (test code = 0.7 % 713-8) BASO % (test code = 0.6 % 706-2) GRAN MAT x10^3(ANC) 9.99 10*3/uL 1.99-6.95 H (test code = 1513402252) IMM GRAN x10^3 (test 0.19 10*3/uL 0-0.06 H code = 6171317617) LYMPH x10^3 (test code 0.90 10*3/uL 1.09-3.23 L = 731-0) MONO x10^3 (test code 1.21 10*3/uL 0.36-1.02 H = 742-7) EOS x10^3 (test code = 0.09 10*3/uL 0.06-0.53 711-2) BASO x10^3 (test code 0.07 10*3/uL 0.01-0.09 = 704-7) Lab Interpretation Abnormal (test code = 39313-1) [facility] WITH [id number] 14:15:00 Test Item Value Reference Range Interpretation [...] RDW-SD (test code = 44.4 fL 38.5-51.6 07486-4) RDW-CV (test code = 14.2 % 12.1-15.4 788-0) PLT (test code = See_Comment HH [Automated 777-3) message] The sy stem which generated this result transmitted reference range : 150 - 328 10*3/ ?L. The reference r meredith was not used to interpret this result as normal/abnormal . MPV (test code = 9.0 fL 9.8-13 L 61504-1) NRBC/100 WBC (test See_Comment [Automat ed code = 1128483553) message] The system which generated this result transmitted reference range : 0.0 - 10.0 /100 WBCs. The refer ence range was not u sed to interpret th is result as normal/abnormal . NRBC x10^3 (test code <0.01 See_Comment [Auto mated = 7162147024) message] The s ystem which generated this result transmitted reference range : 10*3/?L. The reference range was not used to interpret this result as normal/abnormal . GRAN MAT (NEUT) % 76.4 % (test code = 770-8) IMM GRAN % (test code 1.30 % = 8933395559) LYMPH % (test code = 10.9 % 736-9) MONO % (test code = 9.6 % 5905-5) EOS % (test code = 1.1 % 713-8) BASO % (test code = 0.7 % 706-2) GRAN MAT x10^3(ANC) 9.41 10*3/uL 1.99-6.95 H (test code = 4710592305) IMM GRAN x10^3 (test 0.16 10*3/uL 0-0.06 H code = 2824539918) LYMPH x10^3 (test code 1.34 10*3/uL 1.09-3.23 = 731-0) MONO x10^3 (test code 1.18 10*3/uL 0.36-1.02 H = 742-7) EOS x10^3 (test code = 0.13 10*3/uL 0.06-0.53 711-2) BASO x10^3 (test code 0.08 10*3/uL 0.01-0.09 = 704-7) Lab Interpretation Abnormal (test code = 03402-6) [facility] METABOLIC PANEL (NA, K, CL, CO2, GLUCOSE, BUN, CREATININE, CA)2020-04-21 13:47:00 Test Item Value Reference Range Interpretation Comments NA (test code = 130 mmol/L 135-145 L 5706611030) K (test code = 4.8 mmol/L 3.5-5 0770167825) CL (test code = 95 mmol/L 98-108 L 5894878761) CO2 TOTAL (test code = 29 mmol/L 23-31 0758615930) AGAP (test code = 2-16 3677016665) BUN (test code = 25 mg/dL 7-23 H 0372982288) GLUCOSE (test code = 98 mg/dL 70-110 4528129318) CREATININE (test code = 0.78 mg/dL 0.6-1.25 6154302549) CALCIUM (test code = 8.2 mg/dL 8.6-10.6 L 8787514649) eGFR Calculation mL/min/1.73m2 (Non-) (test code = 1447348493) eGFR Calculation mL/min/1.73m2 () (test code = 9856000837) GILBERTO (test code = GILBERTO) Association of [...] tests). Lab Interpretation Abnormal (test code = 56180-1) [facility] 13:47:00 Test Item Value Reference Range Interpretation Comments MAGNESIUM (test code = 2052103731) 2.1 mg/dL 1.7-2.4 Lab Interpretation (test code = Normal 00939-5) [facility]2020-08-28 21:30:00 Test Item Value Reference Range Interpretation Comments PALB (test code = 34369-5) 9.3 mg/dL 18-45 L Lab Interpretation (test code = Abnormal 46153-3) [facility] America[facility] Fluid [id number] 14:32:00 Test Item Value Reference Range Interpretation Comments BODY FLUID CULT No organisms isolated (test code = 611-4) Gram stain (test Occasional (Rare) code = 664-3) Polymorphonuclear leukocytes [facility] CHEST 1 [id number] 13:09:21EXAM: XR CHEST 1 VW HISTORY: ct [...] The heart and great vessels are normal. [facility] METABOLIC PAN[facility] (NA, K, CL, CO2, GLUCOSE, BUN, CREATININE, CA)2020-04-20 11:00:00 Test Item Value Reference Range Interpretation Comments NA (test code = 132 mmol/L 135-145 L 2192969472) K (test code = 5.2 mmol/L 3.5-5 H 0151604326) CL (test code = 100 mmol/L 98-108 6812926016) CO2 TOTAL (test code = 24 mmol/L 23-31 3108225913) AGAP (test code = 2-16 8375199889) BUN (test code = 19 mg/dL 7-23 0322563477) GLUCOSE (test code = 121 mg/dL 70-110 H 0592229784) CREATININE (test code = 0.77 mg/dL 0.6-1.25 0634674986) CALCIUM (test code = 8.2 mg/dL 8.6-10.6 L 2444977401) eGFR Calculation mL/min/1.73m2 (Non-) (test code = 9227075476) eGFR Calculation mL/min/1.73m2 () (test code = 0307531826) GILBERTO (test code = GILBERTO) Association of [...] tests). Lab Interpretation Abnormal (test code = 84841-2) [facility]2020-08-28 11:00:00 Test Item Value Reference Range Interpretation Comments MAGNESIUM (test code = 1699615850) 2.1 mg/dL 1.7-2.4 Lab Interpretation (test code = Normal 13387-6) [facility] America[facility]OSPHORUS2020-08-28 11:00:00 Test Item Value Reference Range Interpretation Comments PHOSPHORUS (test code = 7091897193) 3.9 mg/dL 2.5-5 Lab Interpretation (test code = Normal 16698-0) [facility] AmericaCBC WITH [id number] 10:23:00 Test Item Value Reference Range Interpretation Comments WBC (test code = See_Comment H [Automated 7390-2) message] The system which generated this result transmit dain reference range : 4.20 - 10.70 10*3/?L. The reference range was not used to interpret this result as normal/abnormal . RBC (test code = See_Comment L [Automated 599-8) message] The system which generated this result [...] RDW-SD (test code = 45.2 fL 38.5-51.6 54114-3) RDW-CV (test code = 14.2 % 12.1-15.4 788-0) PLT (test code = See_Comment HH [Automated 777-3) message] The system which generated this result transmit dain reference range : 150 - 328 10*3/ ?L. The reference range was not u sed to interpret th is result as normal/abnormal . MPV (test code = 9.3 fL 9.8-13 L 04604-7) NRBC/100 WBC (test See_Comment [Automat ed code = 2833214223) message] The system which generated this result transmit dain reference range : 0.0 - 10.0 /100 WBCs. The reference range was not used to interpret this result as normal/abnormal . NRBC x10^3 (test code <0.01 See_Comment [Auto mated = 5178950242) message] The system which generated this result transmit dain reference range : 10*3/?L. The reference range was not used to interpret this result as normal/abnormal . GRAN MAT (NEUT) % 79.8 % (test code = 770-8) IMM GRAN % (test code 1.50 % = 3249608216) LYMPH % (test code = 9.8 % 736-9) MONO % (test code = 7.5 % 5905-5) EOS % (test code = 0.6 % 713-8) BASO % (test code = 0.8 % 706-2) GRAN MAT x10^3(ANC) 10.64 10*3/uL 1.99-6.95 H (test code = 8998450327) IMM GRAN x10^3 (test 0.20 10*3/uL 0-0.06 H code = 0279470652) LYMPH x10^3 (test code 1.31 10*3/uL 1.09-3.23 = 731-0) MONO x10^3 (test code 1.00 10*3/uL 0.36-1.02 = 742-7) EOS x10^3 (test code = 0.08 10*3/uL 0.06-0.53 711-2) BASO x10^3 (test code 0.10 10*3/uL 0.01-0.09 H = 704-7) Lab Interpretation Abnormal (test code = 82916-6) [facility] 1 [id number] 12:25:53 No residual pleural effusion noted. Preliminary [...] e ffusion noted.Preliminary Report Dictated by Resident: Linconl Gee MD., have reviewed this study and agree with theabove report.[facility] (NA, K, CL, CO2, GLUCOSE, BUN, CREATININE, CA)2020-04-19 11:09:00 Test Item Value Reference Range Interpretation Comments NA (test code = 133 mmol/L 135-145 L 9804503860) K (test code = 4.2 mmol/L 3.5-5 8967670472) CL (test code = 101 mmol/L 98-108 5242252804) CO2 TOTAL (test code = 26 mmol/L 23-31 1828965616) AGAP (test code = 2-16 8539448887) BUN (test code = 15 mg/dL 7-23 7992468953) GLUCOSE (test code = 113 mg/dL 70-110 H 7099877123) CREATININE (test code = 0.73 mg/dL 0.6-1.25 8653258272) CALCIUM (test code = 8.1 mg/dL 8.6-10.6 L 8028755424) eGFR Calculation mL/min/1.73m2 (Non-) (test code = 0388051252) eGFR Calculation mL/min/1.73m2 () (test code = 4195847869) GILBERTO (test code = GILBERTO) Association of [...] tests). Lab Interpretation Abnormal (test code = 60970-0) [facility]2020-08-27 11:09:00 Test Item Value Reference Range Interpretation Comments MAGNESIUM (test code = 5702559268) 2.1 mg/dL 1.7-2.4 Lab Interpretation (test code = Normal 18532-6) [facility]2020-08-27 11:09:00 Test Item Value Reference Range Interpretation Comments PHOSPHORUS (test code = 4635776525) 3.9 mg/dL 2.5-5 Lab Interpretation (test code = Normal 51248-8) [facility] AmericaCB WITH [id number] 10:59:00 Test Item Value Reference Range Interpretation [...] RDW-SD (test code = 46.0 fL 38.5-51.6 19646-6) RDW-CV (test code = 14.2 % 12.1-15.4 788-0) PLT (test code = See_Comment HH [Automated 777-3) message] The sy stem which generated this result transmitted reference range : 150 - 328 10*3/ ?L. The reference r meredith was not used to interpret this result as normal/abnormal . MPV (test code = 9.3 fL 9.8-13 L 06613-9) NRBC/100 WBC (test See_Comment [Automat ed code = 0118961125) message] The system which generated this result transmitted reference range : 0.0 - 10.0 /100 WBCs. The refer ence range was not u sed to interpret th is result as normal/abnormal . NRBC x10^3 (test code <0.01 See_Comment [Auto mated = 8174912965) message] The s ystem which generated this result transmitted reference range : 10*3/?L. The reference range was not used to interpret this result as normal/abnormal . GRAN MAT (NEUT) % 79.2 % (test code = 770-8) IMM GRAN % (test code 1.00 % = 1962670330) LYMPH % (test code = 11.4 % 736-9) MONO % (test code = 6.7 % 5905-5) EOS % (test code = 1.0 % 713-8) BASO % (test code = 0.7 % 706-2) GRAN MAT x10^3(ANC) 9.49 10*3/uL 1.99-6.95 H (test code = 4844472430) IMM GRAN x10^3 (test 0.12 10*3/uL 0-0.06 H code = 2930973769) LYMPH x10^3 (test code 1.36 10*3/uL 1.09-3.23 = 731-0) MONO x10^3 (test code 0.80 10*3/uL 0.36-1.02 = 742-7) EOS x10^3 (test code = 0.12 10*3/uL 0.06-0.53 711-2) BASO x10^3 (test code 0.08 10*3/uL 0.01-0.09 = 704-7) Lab Interpretation Abnormal (test code = 62734-9) [facility] AmericaBLOOD CULT[facility] [id number] 22:29:00 Test Item Value Reference Range Interpretation Comments Blood Culture-Aerobic No organisms No growth Previo us (test code = 68904-2) isolated prelim inary verified result was Culture In Progress on 04/13/2020 at 06 06 CDT Blood Culture positive. No growth AA Previous Culture-Anaerobic See Blood Culture preli minary (test code = 04728-0) Workup for verifi ed result additional was Culture In information. Progress on 04/12/2020 at 18 01 CDT Lab Interpretation Abnormal (test code = 04061-6) [facility] WITH IMAGING 2020-04-18 15:38:00Successful image guided 10 [place] pigtail chest tube insertioninto the left pleural [...] was obtained. Prior to beginning the procedure, [place] Protocolwas performed to confirm the patient's identity [...] pleural space. The tractwas dilated to 10 [place], and a 10 [place] pigtail chest tube was insertedand coiled within [...] demonstrated a large amount of pleural fluid. [facility], Radiant Results Inft User - 04/18/2020 10:39 AM CDTEXAMINATION: IMAGE GUIDED LEFT CHEST TUBE INSERTIONHISTORY/INDICATION: left pleural effusion ATTENDING PRESENCE: As the attending radiologist, I performed the entireprocedure. SEDATION: Moderate sedation was administered under the att endingphysician's direction and continuous monitoring by a trained nursespecialist who was independent from those actually performing theprocedure. Total monitored sedation time is documented in [facility].TECHNIQUE: The risks, benefits and alternatives were discussed and informedconsent was obtained. Prior to beginning the procedure, [place] Protocolwas performed to confirm the patient's identity [...] pleural space. The tractwas dilated to 10 Omani, and a 10 Omani pigtail chest tube was insertedand coiled within [...] of pleural fluid. IMPRESSIONSuccessful image guided 10 Omani pigtail chest tube insertioninto the left pleural space. PLAN: Post procedure chest radiograph will be obtained.[facility] CHEST 1 [id number] 13:37:38 Hazy left midlung opacity, may represent [...] on the left. No acute bony abnormality. [facility], Radiant Results Inft User - 04/18/2020 8:40 [...] reviewed this study and agree with the abovereport.[facility] AmericaBASIC METABOLIC PANEL (NA, K, CL, CO2, GLUCOSE, BUN, CREATININE, CA)2020-04-18 11:18:00 Test Item Value Reference Range Interpretation Comments NA (test code = 134 mmol/L 135-145 L 6472894953) K (test code = 4.4 mmol/L 3.5-5 0788686829) CL (test code = 102 mmol/L 98-108 7058705516) CO2 TOTAL (test code = 26 mmol/L 23-31 4400307619) AGAP (test code = 2-16 3428557394) BUN (test code = 12 mg/dL 7-23 9317368464) GLUCOSE (test code = 106 mg/dL 70-110 7010138803) CREATININE (test code = 0.74 mg/dL 0.6-1.25 3709097124) CALCIUM (test code = 7.5 mg/dL 8.6-10.6 L 8504091370) eGFR Calculation mL/min/1.73m2 (Non-) (test code = 6130466233) eGFR Calculation mL/min/1.73m2 () (test code = 7300883910) GILBERTO (test code = GILBERTO) Association of [...] tests). Lab Interpretation Abnormal (test code = 98402-9) [facility] America[facility]IUM2020-08-26 11:18:00 Test Item Value Reference Range Interpretation Comments MAGNESIUM (test code = 5582774193) 2.0 mg/dL 1.7-2.4 Lab Interpretation (test code = Normal 23528-1) [facility] AmericaPHOSPHORUS2020-08-26 11:18:00 Test Item Value Reference Range Interpretation Comments PHOSPHORUS (test code = 2811229599) 3.4 mg/dL 2.5-5 Lab Interpretation (test code = Normal 88441-0) [facility] AmericaCB WITH [id number] 10:46:00 Test Item Value Reference Range Interpretation Comments WBC (test code = See_Comment H [Automated 6690-2) message] The system which generated this result transmit dain reference range : 4.20 - 10.70 10*3/?L. The reference range was not used to interpret this result as normal/abnormal . RBC (test code = See_Comment L [Automated 559-8) message] The system which generated this result [...] RDW-SD (test code = 46.5 fL 38.5-51.6 62849-7) RDW-CV (test code = 14.5 % 12.1-15.4 788-0) PLT (test code = See_Comment HH [Automated 777-3) message] The system which generated this result transmit dain reference range : 150 - 328 10*3/ ?L. The reference range was not u sed to interpret th is result as normal/abnormal . MPV (test code = 9.6 fL 9.8-13 L 58954-3) NRBC/100 WBC (test See_Comment [Automat ed code = 1473263116) message] The system which generated this result transmit dain reference range : 0.0 - 10.0 /100 WBCs. The reference range was not used to interpret this result as normal/abnormal . NRBC x10^3 (test code <0.01 See_Comment [Auto mated = 0437654502) message] The system which generated this result transmit dain reference range : 10*3/?L. The reference range was not used to interpret this result as normal/abnormal . GRAN MAT (NEUT) % 82.1 % (test code = 770-8) IMM GRAN % (test code 0.90 % = 4546790881) LYMPH % (test code = 9.2 % 736-9) MONO % (test code = 6.6 % 5905-5) EOS % (test code = 0.7 % 713-8) BASO % (test code = 0.5 % 706-2) GRAN MAT x10^3(ANC) 10.02 10*3/uL 1.99-6.95 H (test code = 0694206652) IMM GRAN x10^3 (test 0.11 10*3/uL 0-0.06 H code = 7543393082) LYMPH x10^3 (test code 1.12 10*3/uL 1.09-3.23 = 731-0) MONO x10^3 (test code 0.80 10*3/uL 0.36-1.02 = 742-7) EOS x10^3 (test code = 0.08 10*3/uL 0.06-0.53 711-2) BASO x10^3 (test code 0.06 10*3/uL 0.01-0.09 = 704-7) Lab Interpretation Abnormal (test code = 80205-7) [facility] AmericaBLOOD CULTURE [id number] 20:01:00 Test Item Value Reference Range Interpretation Comments Blood Culture-Aerobic No organisms No growth Previo us (test code = 74794-6) isolated prelim inary verified result was Culture [...] Culture-Anaerobic isolated preliminar y (test code = 76513-3) verifi ed result was Culture In Progress [...] CDT Lab Interpretation Normal (test code = 66473-0) [facility] CHEST 1 [id number] 19:38:57 FINDINGS/IMPRESSION: There are 2 left-sided chest [...] 2:35 PM on 04/17/[address] Mathieu Chapa.[facility] AmericaCyt Pleural [id number] 17:29:00 Test Item Value Reference Range Interpretation Comments Case Report (test code Non-Gynecologic = 7879347947) Cytology ?Case: [id number] ?Authorizing Provider: ?Vance Stafford MD ?Collected: ? 04/16/2020 1650 ?Ordering Location: ? ? Surgery ([facility]) ? Received: ?04/16/2020 1809 ?Pathologist: ? Alice Aj MD ? Specimen: ? ?PLEURAL, LEFT, EFFUSION ? Final Diagnosis (test x1afuGDtNEGcj8oeZENwfD code = 3939182975) FuZzEwMzNcZnRuYmpcdWMx NKoodwAuJKivf9TwA6KaYi AwMFxhbnNpXGRlZmxhbmcx IMYjQNY1wePuQNCwAVftTN UfFFfbRs7osEPinJvfWzKk GVYkl5jnkoATzvyjpDa6k6 nxKUNfCoH9kGPdIXkaV3ku yxRurRUlHYJlQNp3bQ40GI IyyX8cqDRiIIunmaImYwM3 ESvsRWWxYxB7PHDymFEcQK ZaK1nrSGEcREetOZHxWCdw qLTsLVX8jQemr2H5bXMbpS AkzXbqFhLnGqMvPDZYf8Gy UDh4mJrhE9AlMUYkRyQ2iW QgUGFyYWdyYXBoIEZvbnQ7 iX04CEcqvoT2tJTrz2Cbb4 2nq758pG7cyKKaXSD4LKXv GMEauPWbFAJqGLP7JVZbuW MjH3zsHXwnPQ0dnlgyMXY8 MFxtYXJndDcyMFxtYXJnYj MoxXPaJVZnwCmdDGfvh842 NPR0DkHbQC7pG2Bvy6R1dS 9maXRcZGVmdGFiNzIwXGZv lt9igETxOYpja9RsRGR4rn C0qRUfwTTkBZOuWG24Xktw u3YxKeejSLF2JKAiwwZbf4 Bne6jzPuNesrErX8vyQ1Wi ZHJoZWFkXHBnYnJkcmZvb3 Mrf6JqmEQatHv2a2oxVUJg EEZgjQndv8usKPG2ULDzL0 B5gKDjw3bjKMstVDVewNW8 lmEbDOFooNEuU4PsdN7hHL izES2yafi6q4srEzOzAM0j ajtcd6nyENycBHVePNY1Zk EiJHRaz8TbzvcfGsAln6Ax oQNgCNjrQ92pu952MTOhgl ViQ7ilnSFmcyzbwVPwiscr HJrcvjH0IPKcmxMxmGkdoN 2nUcYvPkViIKoiHH1sTGOo G5ellELoYTAeZYQxO4ncCb ZlqH3cjWjbISgrCfSgZeZw MFxiIEEuICBQTEVVUkEsIE wWPrX2RVDMG9BJT7HJIKVF SVMgRkxVSURccGFyICAgIC VoBU4fHE4MTHGJKCJPHX8Z VIDABaHKH93QRsQFGTxEJQ 6SQSSYP5PODCoRE2gyCGBu ICAgICAgLSBORUdBVElWRS QFE1PxDRIXBCjTKG4LEILE TExTXHBsYWluXGYxXGZzMj BcbGFuZzEwMzNcaGljaFxm DLmoSjXoACOlWUkbC7srEy YcSdMdGZDeQHQRAOFCS19Z LG1IUMswERJ7g8vsfTLlRW MxgVWqLhYlZRYhXCLyu6uq ZGVmbGFuZzEwMzNcZnRuYm husFVgMRQoTnRok7psn177 mLJby6qmAUEfWaP6jELmBA UsfBuwiki6dJhkDkJiDIKe h6iagtHdUlVnKYEmVHPwTE YniYYwR613PBLkADtkr3is j1HeZIDwxZEnf8Z1UGIVTY lmPyTcI855r3oez7nhbjXe mJU9BAEcDYK8PXjgoxRcsm Q2VAsdeRZzMaX2YLzfaxNg CNkdmoRixwHrMpj0YDRqM2 46YLC5iUgil2qxATL0YDZk LAVvJjdcJy7zeGOeP150KR DbCENMFHBblHc9FWBrdmRp viDscVBHu153J876t8jxYF HzueDmiWpOagekj0ioS147 XHBhcGVydzEyMjQwXHBhcG OvaTB0JRFjIU2grfhxZZje GCfkZUBcmcJ6DSTdbIUuL3 QsRPAwPQ1cqsijDYZ3QFbx QGXtAHQ0IkHjMRLqi6Orvu h9AhUadt8bqv79JSJ5l7Br mPsqBIX4DMV8XzHgJp5flG RrGGAuBA4bHmHcdBVoBHKo mr32aMmgBBbnnjOwpV2hTs ZnZUGugTWgMCNqMV9rmVKv RTKulH1oomcjCONzYkJnkp jmYZPegBdhprRjAy8azSyu IRJ5USdfV6byaA7sWhT9SA eeX0ilzE9wYZt9PHkcbXU2 PGJsgA8wXG3tiwmct7wpUU isPAjkJTSlukW2ieK8LPZk jSJjT7MkrB4jTYXqVB7wrm hzi3ymGIN8ZSdoRLViEFI5 PdUwFWXir4Sftuq1JrAlf7 ZanXOcZBakK05mb207RBXl lxQqT4aijKBkpcaogHKcpj jqKSzebbW3UNVuHMUlEVsx XGYxXGZzMjBcbGFuZzEwMz NcaGljaFxmMVxkYmNoXGYx WYxtZ2mxWyAhK4ItVPHiLb JbaSCqRPwgtIH1CQEyACNk o88rgEj6KPNvawemt4QlCC WitVJitMEjkJ6encRgq1ku NKHzLKHsTCIfW7LxDUV2bM YaDJMdkIYmiRH6LF5qivEh OE6oUSLlKlovnpKitQLimx CcXEMqKGxcl0zqAD9tCZQw hYpobL5iuGE1MLVck9thlL OszLKvc9wes8RrlrFeDCzf MVCzTJwhWGMpKMHtVN7jAY LxuTDzatVnu3Q4OoralJKo xflfTrwffbI3INxsgafeVQ FwQMfvU6erJcPfPGIgcDuu Imflj5NoSMLpEFUeUsrhpF FyfX0= Final Diagnosis Comment p6ldoKPsQZWvnCUhQzMpSC (test code = XbXRVzu2xkKMMsbYFtDrFr 2714694065) MzNcZnRuYmpcdWMxXGRlZm Njj2oxb831sAMcd9xrSELf BxN8eFSsSJLkmUXhA237z0 wmp8rtttEgjQO1CTXySNO2 YMzsotNodtL9RRirhTXwOm P1BXpmhyTqJRrxldKxvpLt Pwc1UXDfR631XWG2fSnva4 fmPVJ3CXIyCERiNbEqFu6d dJNhT998LOObZXJFCORudF m7NOKimxRjhqKpgIMNk622 H032q8vtDVCtohKnkAtHbt pxa9dvX152QJPvkWCrkcRv CmWvHZGycTGgmSN2IOIkTX 3gtwpeVBV3YRdmXWTghfZh OSIqmYIaQ8V9JrVosGGsI0 YlLLggRZDfexe5SeUvLb4a uGSkrTX2HDtol2spx0cvuE IsZop9OFMuHxWuSdhnEOdy n2Gqe9uoOOJppu1dBND3jT KfzZmcr2J4fYQaPLZxlFNw gxPkHCGhEvL4HLedTI4wzq 79OOSxFMN4hr5cnNTutSfc poLlxOLjEQgpK4AqXBAjk9 20XGYkR3StKPErz6X2itWt WyYmMIHkkTJ5miE4ETXoLY c1yGFzisF6xhAzkLTjO0bf lX1wKPkbJW9nyfhhh5tvDB I9XNcjSEJxmJY9viseBSos NGMmDeO8ggBnwWQwVKAaiA yeMTvkq885HLL9CjAbHFVp v7CnB7AgpViiW13tiZeeA3 3aKFZalCnkxU2fqVagxU5n ZjBcZnMyNFxxbFxwbGFpbl xmMFxmczIwXGxhbmcxMDMz RAlwV8qcKrBfXMTrwObmVR ard8YvQCTcHPPgWpTaW31j ZHQar8imp6MylMe0ZSBkrU 1tiHEynHZ3yK1yETafiSjs vHNtXU6jfX2chxKdlRYbRO L3yp5kqBgqcsiaFnB1NDj2 gIVzz5R9eLIcFYIvPSGnjO QvwP9iVPYby13zdEX5ZZ37 OHwugBveZA1arZNlHP5kAh 6vmDVubQnuWZ85ISMpaYno FUwrOI44cEZhIYVlUCrlJY J9 Clinical Information Clinical Hx: ?Total (test code = colectomy complicated [id number]) . Requested per consulting surgery team. Gross Description (test o7rkoHQqRLGrhZZzGnDpSG code = 0257454704) XbMRWyn7saAUFeyWNoPkMs MzNcZnRuYmpcdWMxXGRlZm Wry4iuf673kSCre8sxTTHh KqW5cPQaIGFpiBVfU405s3 ruz5azvnEagDW2DTGmTKC1 EKcfdfJkctT9IRsqxVElOm K5DEvsmvMhICriafJojlUb Xbw6DUSbI337QOO1lCzzc2 cdFLY4PVYnLRAeUkXsDb1i hCShH975GKSjMNULGGUjtN j3BCVdyvLqjwYnnRTNq432 O431q0nqSENrfpCedMdIzu nwj0hnF278OBInnBZlkzKn QlDiOOBmoLVqePR8ISPgBH 5pfzgoCVC6UBnmANWoorXq HWGcwWYqH7O0BpMbaFAvU0 QtHDjmXRYuiom9HqBoMv3m kTQrcIB6VHjiu3hpr6qodT LzWqz1SFInFvAkFtioOVsu a1Tst9qtBOTfen7uWPF1fE KtoXfgv9U2sGAyEUFitXAq ceEiAGCrCaR5VTyiEU4oeh 33UJIrAXB2eg6umVDdmUtt osDhsJTnPUsvM2YePPDfj7 36ZTAtZ2GbRYShq5S5vxVb MeZgEWIslWR9iiS5EXAcLB a2jKItwqU2paKecGEwC4ak gL0bNXhtVR0yezoqj3kfYW U0QEsjUSGauXZ2duozCAzp EIBtJbX7ylVbhBEeYXHpdA udTOgss295QDY5NnZzTLMi v4GbW7TpsFodS12ncFqyR6 7zJIGonXhrtE7dhAlmkT1j ZjBcZnMyNFxxbFxwbGFpbl xmMFxmczIwXGxhbmcxMDMz WMyaI5yjEdVrVGQqbNnrLD rzy8VtPXIhHLJdRqSqMYUn HVPXZWVWIwYsHMuQUhW1OF PZM7KWR1VUJRZPRLPlPwmR PPXwsZOjPLVtN7SkzeFwLV WeWQIfHOrrLIVzSHGuH3Lg w8CnjLSinY61LVWkqZbbJX xwYXIgUHJlcGFyZWQgMiBz pFexHPGoQAQrCJBzEW1xD2 9xYU09LWW1rD0fxPzoWZNa nhCqESTGd51jrw49p8m6BQ R2sJ5wzCywCOZiUCFbdcN6 kX9yTMoaFAC3 Embedded Images (test code = 3018998278) [facility] CHE[facility] 1 [id number] 13:05:21EXAM: XR CHEST 1 VW HISTORY: post [...] the chest is little different than noted yesterday.[facility] WITH [id number] 11:18:00 Test Item Value Reference Range Interpretation [...] RDW-SD (test code = 47.8 fL 38.5-51.6 31425-5) RDW-CV (test code = 14.7 % 12.1-15.4 788-0) PLT (test code = See_Comment HH [Automated 777-3) message] The system which generated this result transmit dain reference range : 150 - 328 10*3/ ?L. The reference range was not u sed to interpret th is result as normal/abnormal . MPV (test code = 9.9 fL 9.8-13 48663-0) NRBC/100 WBC (test See_Comment [Automat ed code = 9251081516) message] The system which generated this result transmit dain reference range : 0.0 - 10.0 /100 WBCs. The reference range was not used to interpret this result as normal/abnormal . NRBC x10^3 (test code <0.01 See_Comment [Auto mated = 6629403993) message] The system which generated this result transmit dain reference range : 10*3/?L. The reference range was not used to interpret this result as normal/abnormal . GRAN MAT (NEUT) % 81.7 % (test code = 770-8) IMM GRAN % (test code 1.10 % = 6576456870) LYMPH % (test code = 9.1 % 736-9) MONO % (test code = 7.3 % 5905-5) EOS % (test code = 0.5 % 713-8) BASO % (test code = 0.3 % 706-2) GRAN MAT x10^3(ANC) 10.91 10*3/uL 1.99-6.95 H (test code = 1044570428) IMM GRAN x10^3 (test 0.15 10*3/uL 0-0.06 H code = 3159402445) LYMPH x10^3 (test code 1.21 10*3/uL 1.09-3.23 = 731-0) MONO x10^3 (test code 0.97 10*3/uL 0.36-1.02 = 742-7) EOS x10^3 (test code = 0.07 10*3/uL 0.06-0.53 711-2) BASO x10^3 (test code 0.04 10*3/uL 0.01-0.09 = 704-7) Lab Interpretation Abnormal (test code = 80456-9) [facility] METABOLIC PANEL (NA, K, CL, CO2, GLUCOSE, BUN, CREATININE, CA)2020-04-17 10:49:00 Test Item Value Reference Range Interpretation Comments NA (test code = 134 mmol/L 135-145 L 3489601472) K (test code = 4.2 mmol/L 3.5-5 5332044377) CL (test code = 103 mmol/L 98-108 6544770037) CO2 TOTAL (test code = 26 mmol/L 23-31 4765361239) AGAP (test code = 2-16 4176234709) BUN (test code = 12 mg/dL 7-23 3136048146) GLUCOSE (test code = 107 mg/dL 70-110 6076790166) CREATININE (test code = 0.74 mg/dL 0.6-1.25 4855544290) CALCIUM (test code = 7.8 mg/dL 8.6-10.6 L 5949143352) eGFR Calculation mL/min/1.73m2 (Non-) (test code = 6925054095) eGFR Calculation mL/min/1.73m2 () (test code = 7517538401) GILBERTO (test code = GILBERTO) Association of [...] tests). Lab Interpretation Abnormal (test code = 93637-8) [facility]2020-08-25 10:49:00 Test Item Value Reference Range Interpretation Comments MAGNESIUM (test code = 3745975402) 2.3 mg/dL 1.7-2.4 Lab Interpretation (test code = Normal 17940-0) [facility] America[facility]2020-08-25 10:49:00 Test Item Value Reference Range Interpretation Comments PHOSPHORUS (test code = 3159110750) 3.8 mg/dL 2.5-5 Lab Interpretation (test code = Normal 54663-4) [facility] AmericaLDH TOTAL BODY [id number] 00:37:00 Test Item Value Reference Range Interpretation Comments LDH BF (test code = 3707 U/L 6147306862) UNSPUN BODY FLUID Light Yellow COLOR (test code = 9799270306) UNSPUN BODY FLUID Clear CLARITY (test code = 5484091821) SPUN BODY FLUID Light Yellow COLOR (test code = 1042642290) SPUN BODY FLUID Clear CLARITY (test code = 8588650710) Sediment (test code The sediment volume is 0.1 = 8865787358) mLs of the total fluid volume of 3mLs and its color is white. GILBERTO (test code = Test developed and GILBERTO) characteristics determined by [facility] Laboratory Services. [facility] CHEST 1 [id number] 00:22:53 1. ?Left lower lung zone 2 [...] compared to 817 with a possible small pneumothorax.[facility] AmericaBODY FLUID DIRECT [id number] 00:10:00 Test Item Value Reference Range Interpretation Comments BF COLOR Light Yellow (test code = 4624372416) BF WBC Count See_Comment [Automated (test code = message] The sy stem 4459130055) which generated this result transmitted reference range : /?L. The refere nce range was not u sed to interpret th is result as normal/abnormal . BF RBC Count <3000 See_Comment [Automated (test code = message] The sy stem 6525337582) which generated this result transmitted reference range : /?L. The refere nce range was not u sed to interpret th is result as normal/abnormal . GILBERTO (test The reference range code = GILBERTO) and other method performance specifications have not been established for this body fluid. ?The test results must be integrated into the clinical context for interpretation. [facility] AmericaBODY FLUID MANUAL [id number] 00:10:00 Test Item Value Reference Range Interpretation Comments BF SEGS (test code = 8683274808) 78 % MACROPHAGE (test code = 9627013745) 22 % #CELS CNTD (test code = 9773922819) [facility] AmericaAmylase Body [id number] 00:03:00 Test Item Value Reference Range Interpretation Comments AMYLASE BF (test 313 U/L code = 7151063635) UNSPUN BODY FLUID Yellow COLOR (test code = 4229317801) UNSPUN BODY FLUID Clear CLARITY (test code = 9224842789) SPUN BODY FLUID Yellow COLOR (test code = 9788754983) SPUN BODY FLUID Clear CLARITY (test code = 3228605414) Sediment (test code The sediment volume is = 9203743507) <0.1 mLs of the total fluid volume of 1mL and its color is red. GILBERTO (test code = Test developed and GILBERTO) characteristics determined by [facility] Laboratory Services. [facility] AmericaGlucose Body [id number] 00:03:00 Test Item Value Reference Range Interpretation Comments GLUCOSE BF (test 57 mg/dL code = 4326006527) UNSPUN BODY FLUID Yellow COLOR (test code = 5089024992) UNSPUN BODY FLUID Clear CLARITY (test code = 5397407252) SPUN BODY FLUID Yellow COLOR (test code = 2059218602) SPUN BODY FLUID Clear CLARITY (test code = 8528501702) Sediment (test code The sediment volume is = 9801780891) <0.1 mLs of the total fluid volume of 1mL and its color is red. GILBERTO (test code = Test developed and GILBERTO) characteristics determined by [facility] Laboratory Services. [facility] AmericaTotal Protein Body [id number] 00:03:00 Test Item Value Reference Range Interpretation Comments T.PROT BF (test 3000.0 mg/dL code = 5311566269) UNSPUN BODY FLUID Yellow COLOR (test code = 1680099687) UNSPUN BODY FLUID Clear CLARITY (test code = 0204923573) SPUN BODY FLUID Yellow COLOR (test code = 0379776690) SPUN BODY FLUID Clear CLARITY (test code = 3785203238) Sediment (test code The sediment volume is = 7813859722) <0.1 mLs of the total fluid volume of 1mL and its color is red. GILBERTO (test code = Test developed and GILBERTO) characteristics determined by [facility] Laboratory Services. [facility] AmericaPH, Body [id number] 23:56:00 Test Item Value Reference Range Interpretation Comments PH BF (test code = 5870935537) UNSPUN BODY FLUID COLOR Light Yellow (test code = 6066177798) UNSPUN BODY FLUID Clear CLARITY (test code = 9023025331) SPUN BODY FLUID COLOR Light Yellow (test code = 8370220906) SPUN BODY FLUID CLARITY Clear (test code = 1880601531) Sediment (test code = The sediment volume is 7675866283) 0.1 mLs of the total fluid volume of 5.5mLs and its color is white/red. [facility] AmericaIR DRAINAGE BY CATHETER PERITONEAL OR [id number] 21:10:26 Successful placement of a 12 Omani drain in the left upper quadrantcollection. Successful placement of a 14 Omani drain in the midline air fluidcollection. Successful placement of a 10 Omani drain in the right lower quadrant fluidcollection. [...] those actually performingthe procedure. Please refer to [facility] regarding sedation time. RADIATION DOSE: 1957 mGy - cm. TECHNIQUE: The risks, benefits and alternatives were discussed and informed consentwas obtained. Prior to beginning the procedure, [place] Protocol was usedto confirm the patient's identity and planned procedure. Maximum sterilebarriers including cap, mask, hand hygiene, sterile gloves, sterile gown,large sterile drape and cutaneous antisepsis were used. The anteriorabdominal wall was sterilely prepped, and draped. The skinoverlying the left upper, right upper, andright lower quadrants wasinfiltrated with lidocaine 2%. The targeted collection in the left upper quadrant was then accessed with w68-pwyhs quadrant needle using CT guidance. A 0.035 Amplatz wire wasadvanced through the coaxial needle. The tract was serially dilated to 12French. A pigtail 12 Omani catheter was placed in the left upper quadrantcollection. Approximately, 210 cc of purulent fluid was removed. The air-fluid collection in the mid abdomen was accessed through the rightupper quadrant. An 18 Omani pigtail catheter was placed in this collectionunder CT guidance in a similar fashion to thedrain and left upperquadrant. Approximately, 1250 cc of purulent material were removed. The fluid collection in the right lower quadrant was also accessed in asimilar fashion. A 10 Omani pigtail catheter was placed in this collectionunder [...] aspirated at the time of the procedure. [facility], Radiant Results Inft User - 04/16/2020 4:11 PM CDTEXAMINATION: PERCUTANEOUS ASPIRATIONHISTORY: 50-year-old male with postoperative abdominal fluid collections SEDATION: Moderate sedation was administered under the supervision of atrained nurse specialist who was independent from those actually performingthe procedure. Please refer to [facility] regarding sedation time.RADIATION DOSE: 1957 mGy - cm.TECHNIQUE: The risks, benefits and alternatives were d iscussed and informed consentwas obtained. Prior to beginning the procedure, [place] Protocol was usedto confirm the patient's identity [...] serially dilated to 12French. A pigtail 12 Omani catheter was placed in the left upper quadrantcollection. Approximately, 210 cc of purulent fluid was removed.The air-fluid collection in the mid abdomen was accessed through the rightupper quadrant. An 18 Omani pigtail catheter was placed in this collectionunder CT guidance in a similar fa shion to the drain and left upperquadrant. Approximately, 1250 cc of purulent material were removed.The fluid collection in the right lower quadrant was also accessed in asimilar fashion. A 10 Omani pigtail catheter was placed in this collectionunder [...] left upper quadrantcollection.Successful placement of a 14 Omani drain in the midline air fluidcollection.Successful placement of a 10 [place] drain in the right lower quadrant fluidcollection.Preliminary Report Dictated by Resident: Hayden Murphy the attending radiologist I was present in the room for the entirety ofthe procedure.I, Neris Grier MD., have reviewed this study and agree with the abovereport.[facility](AEROBIC/ANAEROBIC)2020-04-16 19:45:00 Test Item Value Reference Range Interpretation Comments BODY FLUID CULT 2+ Bacteroides fragillis (test code = 611-4) Gram stain (test Occasional (Rare) code = 664-3) Mononuclear cells [facility] AmericaPROTHROMBIN TIME / [id number] 16:38:00 Test Item Value Reference Range Interpretation Comments PROTIME PATIENT (test See_Comment H [Auto mated message] code = 5964-2) The system Twelve generated this result transmitted ref erence range: 10.1 - 1 2.6 Seconds. The reference range was not used to int erpret this result as normal/abnormal . INR (test code = 6301-6) Nor mal INR <1.1; Warfarin Therap eutic range 2.0 to 3. 0 or 2.5 to 3.5, dep ending upon the indica tions. Lab Interpretation (test Abnormal code = 76374-1) [facility] AmericaCT ABDOMEN PELVIS W [id number] 13:40:08Impression: 1. ?Interval placement of 4 percutaneous [...] degenerative changes and no suspicious focal lesions. [facility], Radiant Results Inft User - [...] and oral contrast seen up to the ostomy.[facility] (NA, K, CL, CO2, GLUCOSE, BUN, CREATININE, CA)2020-04-16 10:51:00 Test Item Value Reference Range Interpretation Comments NA (test code = 132 mmol/L 135-145 L [id number]) K (test code = 4.1 mmol/L 3.5-5 6158176439) CL (test code = 103 mmol/L 98-108 8167185377) CO2 TOTAL (test code = 24 mmol/L 23-31 6435306908) AGAP (test code = 2-16 4775231246) BUN (test code = 13 mg/dL 7-23 1653189428) GLUCOSE (test code = 132 mg/dL 70-110 H 5667374826) CREATININE (test code = 0.77 mg/dL 0.6-1.25 1391596343) CALCIUM (test code = 7.4 mg/dL 8.6-10.6 L 3086475848) eGFR Calculation mL/min/1.73m2 (Non-) (test code = 1982459708) eGFR Calculation mL/min/1.73m2 () (test code = 5396417910) GILBERTO (test code = GILBERTO) Association of [...] tests). Lab Interpretation Abnormal (test code = 73736-2) [facility] America[facility]2020-08-24 10:51:00 Test Item Value Reference Range Interpretation Comments MAGNESIUM (test code = 4524506609) 2.2 mg/dL 1.7-2.4 Lab Interpretation (test code = Normal 74467-0) [facility] AmericaPHOSPHORUS2020-08-24 10:51:00 Test Item Value Reference Range Interpretation Comments PHOSPHORUS (test code = 4204817572) 3.1 mg/dL 2.5-5 Lab Interpretation (test code = Normal 08753-5) [facility] AmericaCB WITH [id number] 10:37:00 Test Item Value Reference Range Interpretation Comments WBC (test code = See_Comment H [Automated 3120-2) message] The system which generated this result [...] RDW-SD (test code = 47.4 fL 38.5-51.6 26353-8) RDW-CV (test code = 14.7 % 12.1-15.4 788-0) PLT (test code = See_Comment H [Automated 777-3) message] The system which generated this result transmit dain reference range : 150 - 328 10*3/ ?L. The reference range was not u sed to interpret th is result as normal/abnormal . MPV (test code = 10.1 fL 9.8-13 61079-4) NRBC/100 WBC (test See_Comment [Automat ed code = 9258648221) message] The system which generated this result transmit dain reference range : 0.0 - 10.0 /100 WBCs. The reference range was not used to interpret this result as normal/abnormal . NRBC x10^3 (test code <0.01 See_Comment [Auto mated = 5714181866) message] The system which generated this result transmit dain reference range : 10*3/?L. The reference range was not used to interpret this result as normal/abnormal . GRAN MAT (NEUT) % 83.0 % (test code = 770-8) IMM GRAN % (test code 1.50 % = 8093348065) LYMPH % (test code = 7.6 % 736-9) MONO % (test code = 7.3 % 5905-5) EOS % (test code = 0.3 % 713-8) BASO % (test code = 0.3 % 706-2) GRAN MAT x10^3(ANC) 11.53 10*3/uL 1.99-6.95 H (test code = 7761767510) IMM GRAN x10^3 (test 0.21 10*3/uL 0-0.06 H code = 1150175419) LYMPH x10^3 (test code 1.05 10*3/uL 1.09-3.23 L = 731-0) MONO x10^3 (test code 1.01 10*3/uL 0.36-1.02 = 742-7) EOS x10^3 (test code = 0.04 10*3/uL 0.06-0.53 L 711-2) BASO x10^3 (test code 0.04 10*3/uL 0.01-0.09 = 704-7) Lab Interpretation Abnormal (test code = 81718-5) [facility] METABOLIC PANEL (NA, K, CL, CO2, GLUCOSE, BUN, CREATININE, CA)2020-04-15 11:01:00 Test Item Value Reference Range Interpretation Comments NA (test code = 132 mmol/L 135-145 L 2415643023) K (test code = 4.7 mmol/L 3.5-5 1568115068) CL (test code = 103 mmol/L 98-108 8469079062) CO2 TOTAL (test code = 22 mmol/L 23-31 L 7615728277) AGAP (test code = 2-16 2502041439) BUN (test code = 14 mg/dL 7-23 0017137048) GLUCOSE (test code = 114 mg/dL 70-110 H 4613129942) CREATININE (test code = 0.74 mg/dL 0.6-1.25 2216496072) CALCIUM (test code = 7.9 mg/dL 8.6-10.6 L 7231641792) eGFR Calculation mL/min/1.73m2 (Non-) (test code = 4303478893) eGFR Calculation mL/min/1.73m2 () (test code = 8913669458) GILBERTO (test code = GILBERTO) Association of [...] tests). Lab Interpretation Abnormal (test code = 83989-7) [facility] 11:01:00 Test Item Value Reference Range Interpretation Comments MAGNESIUM (test code = 1545425567) 2.1 mg/dL 1.7-2.4 Lab Interpretation (test code = Normal 01333-2) [facility] 11:01:00 Test Item Value Reference Range Interpretation Comments PHOSPHORUS (test code = 4870880441) 3.4 mg/dL 2.5-5 Lab Interpretation (test code = Normal 36353-4) [facility] [id number] 10:46:00 Test Item Value Reference Range Interpretation Comments WBC (test code = See_Comment H [Automated 4290-2) message] The system which generated this result [...] RDW-SD (test code = 47.7 fL 38.5-51.6 06018-7) RDW-CV (test code = 15.0 % 12.1-15.4 788-0) PLT (test code = See_Comment H [Automated 777-3) message] The system which generated this result transmit dain reference range : 150 - 328 10*3/ ?L. The reference range was not u sed to interpret th is result as normal/abnormal . MPV (test code = 10.4 fL 9.8-13 08493-7) NRBC/100 WBC (test See_Comment [Automat ed code = 4261179020) message] The system which generated this result transmit dain reference range : 0.0 - 10.0 /100 WBCs. The reference range was not used to interpret this result as normal/abnormal . NRBC x10^3 (test code <0.01 See_Comment [Auto mated = 7855945731) message] The system which generated this result transmit dain reference range : 10*3/?L. The reference range was not used to interpret this result as normal/abnormal . GRAN MAT (NEUT) % 85.0 % (test code = 770-8) IMM GRAN % (test code 1.10 % = 1588363898) LYMPH % (test code = 7.2 % 736-9) MONO % (test code = 6.4 % 5905-5) EOS % (test code = 0.1 % 713-8) BASO % (test code = 0.2 % 706-2) GRAN MAT x10^3(ANC) 14.87 10*3/uL 1.99-6.95 H (test code = 5760083469) IMM GRAN x10^3 (test 0.20 10*3/uL 0-0.06 H code = 6318004554) LYMPH x10^3 (test code 1.25 10*3/uL 1.09-3.23 = 731-0) MONO x10^3 (test code 1.11 10*3/uL 0.36-1.02 H = 742-7) EOS x10^3 (test code = <0.03 0.06-0.53 L 711-2) BASO x10^3 (test code 0.03 10*3/uL 0.01-0.09 = 704-7) Lab Interpretation Abnormal (test code = 56453-5) [facility] METABOLIC PANEL (NA, K, CL, CO2, GLUCOSE, BUN, CREATININE, CA)2020-04-14 12:15:00 Test Item Value Reference Range Interpretation Comments NA (test code = 134 mmol/L 135-145 L 5610616701) K (test code = 4.9 mmol/L 3.5-5 4989915448) CL (test code = 105 mmol/L 98-108 0563402365) CO2 TOTAL (test code = 23 mmol/L 23-31 2281165137) AGAP (test code = 2-16 1221516886) BUN (test code = 16 mg/dL 7-23 5245429972) GLUCOSE (test code = 102 mg/dL 70-110 6256724968) CREATININE (test code = 0.82 mg/dL 0.6-1.25 9413778176) CALCIUM (test code = 7.9 mg/dL 8.6-10.6 L 3411335572) eGFR Calculation mL/min/1.73m2 (Non-) (test code = 5279348098) eGFR Calculation mL/min/1.73m2 () (test code = 9809981819) GILBERTO (test code = GILBERTO) Association of [...] tests). Lab Interpretation Abnormal (test code = 87629-0) [facility] 12:15:00 Test Item Value Reference Range Interpretation Comments MAGNESIUM (test code = 6727743514) 2.1 mg/dL 1.7-2.4 Lab Interpretation (test code = Normal 98173-2) [facility]2020-08-22 12:15:00 Test Item Value Reference Range Interpretation Comments PHOSPHORUS (test code = 8751970454) 4.2 mg/dL 2.5-5 Lab Interpretation (test code = Normal 15042-8) [facility] [id number] 11:49:00 Test Item Value Reference Range Interpretation Comments WBC (test code = See_Comment H [Automated 6790-2) message] The system which generated this result transmit dain reference range : 4.20 - 10.70 10*3/?L. The reference range was not used to interpret this result as normal/abnormal . RBC (test code = See_Comment L [Automated 129-8) message] The system which generated this result [...] RDW-SD (test code = 48.1 fL 38.5-51.6 27941-6) RDW-CV (test code = 15.1 % 12.1-15.4 788-0) PLT (test code = See_Comment H [Automated 777-3) message] The system which generated this result transmit dain reference range : 150 - 328 10*3/ ?L. The reference range was not u sed to interpret th is result as normal/abnormal . MPV (test code = 10.7 fL 9.8-13 80848-9) NRBC/100 WBC (test See_Comment [Automat ed code = 0943345820) message] The system which generated this result transmit dain reference range : 0.0 - 10.0 /100 WBCs. The reference range was not used to interpret this result as normal/abnormal . NRBC x10^3 (test code <0.01 See_Comment [Auto mated = 0333328302) message] The system which generated this result transmit dain reference range : 10*3/?L. The reference range was not used to interpret this result as normal/abnormal . GRAN MAT (NEUT) % 84.4 % (test code = 770-8) IMM GRAN % (test code 1.10 % = 3530564537) LYMPH % (test code = 7.4 % 736-9) MONO % (test code = 6.8 % 5905-5) EOS % (test code = 0.1 % 713-8) BASO % (test code = 0.2 % 706-2) GRAN MAT x10^3(ANC) 13.45 10*3/uL 1.99-6.95 H (test code = 1170558236) IMM GRAN x10^3 (test 0.18 10*3/uL 0-0.06 H code = 6629926332) LYMPH x10^3 (test code 1.18 10*3/uL 1.09-3.23 = 731-0) MONO x10^3 (test code 1.09 10*3/uL 0.36-1.02 H = 742-7) EOS x10^3 (test code = <0.03 0.06-0.53 L 711-2) BASO x10^3 (test code 0.03 10*3/uL 0.01-0.09 = 704-7) Lab Interpretation Abnormal (test code = 16876-6) [facility] TOTAL BODY [id number] 01:27:00 Test Item Value Reference Range Interpretation Comments LDH BF (test code = >6450 U/L 4351103349) UNSPUN BODY FLUID Yellow COLOR (test code = 7499971568) UNSPUN BODY FLUID Turbid CLARITY (test code = 4521435723) SPUN BODY FLUID Yellow COLOR (test code = 5501273491) SPUN BODY FLUID Clear CLARITY (test code = 5637903700) Sediment (test code The sediment volume is 0.1 = 7420557467) mLs of the total fluid volume of 5mLs and its color is Red/White. GILBERTO (test code = Test developed and GILBERTO) characteristics determined by [facility] Laboratory Services. [facility] METABOLIC PANEL (NA, K, CL, CO2, GLUCOSE, BUN, CREATININE, CA)2020-04-14 00:15:00 Test Item Value Reference Range Interpretation Comments NA (test code = 132 mmol/L 135-145 L 0250083335) K (test code = 5.3 mmol/L 3.5-5 H 1554691535) CL (test code = 105 mmol/L 98-108 9272461995) CO2 TOTAL (test code = 20 mmol/L 23-31 L 9949736770) AGAP (test code = 2-16 6853770225) BUN (test code = 14 mg/dL 7-23 1267255972) GLUCOSE (test code = 280 mg/dL 70-110 H 6144132322) CREATININE (test code = 0.75 mg/dL 0.6-1.25 4393692243) CALCIUM (test code = 7.4 mg/dL 8.6-10.6 L 5329363994) eGFR Calculation mL/min/1.73m2 (Non-) (test code = 2569166075) eGFR Calculation mL/min/1.73m2 () (test code = 6293848689) GILBERTO (test code = GILBERTO) Association of [...] tests). Lab Interpretation Abnormal (test code = 90787-0) [facility] WITHOUT [id number] 00:01:00 Test Item Value Reference Range Interpretation Comments WBC (test code = 6690-2) See_Comment H [A utomated message] The system niiu generated this result transmit dain reference range : 4.20 - 10.70 10*3/?L. The reference range was not used to interpret this result as normal/abnormal . RBC (test code = 789-8) See_Comment L [Au tomated message] The system niiu generated this result transmit dain reference range [...] See_Comment H [Au tomated message] The system niiu generated this result transmit dain reference range : 150 - 328 10*3/?L. The reference range was not used to interpret this result as normal/abnormal . MPV (test code = 10.2 fL 9.8-13 88535-2) RDW-CV (test code = 15.3 % 12.1-15.4 788-0) RDW-SD (test code = 49.1 fL 38.5-51.6 04275-6) NRBC x10^3 (test code = <0.01 See_Comment [Au tomated message] 5542618033) The system niiu generated this result transmit dain reference range : 10*3/?L. The reference range was not used to interpret this result as normal/abnormal . NRBC/100 WBC (test code See_Comment [Au tomated message] = 4132015413) The system [facility] generated this result transmit dain reference range : 0.0 - 10.0 /100 WBC s. The reference r meredith was not used to interpret this result as normal/abnormal . IPF % (test code = 3563876962) Lab Interpretation (test Abnormal code = 83859-3) [facility] DIRECT [id number] 23:40:00 Test Item Value Reference Range Interpretation Comments BF COLOR Yellow (test code = 9329104921) BF WBC Count See_Comment [Automated (test code = message] The sy stem 4352248013) which generated this result transmitted reference range : /?L. The refere nce range was not u sed to interpret th is result as normal/abnormal . BF RBC Count <3000 See_Comment [Automated (test code = message] The sy stem 9036947023) which generated this result transmitted reference range : /?L. The refere nce range was not u sed to interpret th is result as normal/abnormal . GILBERTO (test The reference range code = GILBERTO) and other method performance specifications have not been established for this body fluid. ?The test results must be integrated into the clinical context for interpretation. [facility] MANUAL [id number] 23:40:00 Test Item Value Reference Range Interpretation Comments BF SEGS (test code 99 % = 8989563488) BF LYMPHS (test 1 % code = 1315581730) #CELS CNTD (test code = 1189601750) GILBERTO (test code = Possible intracellular GILBERTO) bacteria. [facility] America[facility]UCOSE BODY [id number] 23:17:00 Test Item Value Reference Range Interpretation Comments GLUCOSE BF (test <20 mg/dL code = 2613211259) UNSPUN BODY FLUID Yellow COLOR (test code = 5502041623) UNSPUN BODY FLUID Turbid CLARITY (test code = 6034564285) SPUN BODY FLUID Yellow COLOR (test code = 7926471430) SPUN BODY FLUID Clear CLARITY (test code = 8873065256) Sediment (test code The sediment volume is 0.1 = 9541498358) mLs of the total fluid volume of 5mLs and its color is Red/White. GILBERTO (test code = Test developed and GILBERTO) characteristics determined by [facility] Laboratory Services. [facility] America[facility].PROTEIN BODY [id number] 22:52:00 Test Item Value Reference Range Interpretation Comments T.PROT BF (test 3000.0 mg/dL code = 6196074170) UNSPUN BODY FLUID Yellow COLOR (test code = 7583198107) UNSPUN BODY FLUID Turbid CLARITY (test code = 0045766738) SPUN BODY FLUID Yellow COLOR (test code = 7024532879) SPUN BODY FLUID Clear CLARITY (test code = 3810924148) Sediment (test code The sediment volume is 0.1 = 2149997177) mLs of the total fluid volume of 5mLs and its color is Red/White. GILBERTO (test code = Test developed and GILBERTO) characteristics determined by [facility] Laboratory Services. [facility] America[facility]INE [id number] 19:44:00 Test Item Value Reference Range Interpretation Comments URINE CULTURE (test No aerobic growth (< code = 630-4) 1000 CFU/mL) [facility] AmericaGRAM NEGATIVE BLOOD PATHOGENS DNA [id number] 13:23:00 Test Item Value Reference Range Interpretation Comments Enterobacter species Positive Negative A (test code = 09217-2) GILBERTO (test code = GILBERTO) See blood culture result for additional information. ?Testing included eight identification and six resistance marker targets. Lab Interpretation Abnormal (test code = 43543-0) [facility] WITH [id number] 12:43:00 Test Item Value Reference Range Interpretation [...] RDW-SD (test code = 49.8 fL 38.5-51.6 36529-2) RDW-CV (test code = 15.3 % 12.1-15.4 788-0) PLT (test code = See_Comment H [Automated 777-3) message] The system which generated this result transmit dain reference range : 150 - 328 10*3/ ?L. The reference range was not u sed to interpret th is result as normal/abnormal . MPV (test code = 10.7 fL 9.8-13 98298-0) NRBC/100 WBC (test See_Comment [Automat ed code = 0903913617) message] The system which generated this result transmit dain reference range : 0.0 - 10.0 /100 WBCs. The reference range was not used to interpret this result as normal/abnormal . NRBC x10^3 (test code <0.01 See_Comment [Auto mated = 7771776396) message] The system which generated this result transmit dain reference range : 10*3/?L. The reference range was not used to interpret this result as normal/abnormal . GRAN MAT (NEUT) % 81.3 % (test code = 770-8) IMM GRAN % (test code 1.40 % = 1063084556) LYMPH % (test code = 8.0 % 736-9) MONO % (test code = 8.9 % 5905-5) EOS % (test code = 0.2 % 713-8) BASO % (test code = 0.2 % 706-2) GRAN MAT x10^3(ANC) 10.74 10*3/uL 1.99-6.95 H (test code = 1451361170) IMM GRAN x10^3 (test 0.18 10*3/uL 0-0.06 H code = 6179331720) LYMPH x10^3 (test code 1.06 10*3/uL 1.09-3.23 L = 731-0) MONO x10^3 (test code 1.17 10*3/uL 0.36-1.02 H = 742-7) EOS x10^3 (test code = <0.03 0.06-0.53 L 711-2) BASO x10^3 (test code <0.03 0.01-0.09 = 704-7) Lab Interpretation Abnormal (test code = 90198-4) [facility] METABOLIC PANEL (NA, K, CL, CO2, GLUCOSE, BUN, CREATININE, CA)2020-04-13 11:57:00 Test Item Value Reference Range Interpretation Comments NA (test code = 134 mmol/L 135-145 L 8451651029) K (test code = 4.6 mmol/L 3.5-5 3907587511) CL (test code = 106 mmol/L 98-108 4996869081) CO2 TOTAL (test code = 23 mmol/L 23-31 4589294503) AGAP (test code = 2-16 4330490519) BUN (test code = 14 mg/dL 7-23 4638807627) GLUCOSE (test code = 106 mg/dL 70-110 3820099568) CREATININE (test code = 0.84 mg/dL 0.6-1.25 3785717236) CALCIUM (test code = 7.7 mg/dL 8.6-10.6 L 9058099716) eGFR Calculation mL/min/1.73m2 (Non-) (test code = 1030471993) eGFR Calculation mL/min/1.73m2 () (test code = 9436288001) GILBERTO (test code = GILBERTO) Association of [...] tests). Lab Interpretation Abnormal (test code = 88148-2) [facility]2020-08[facility]21 11:57:00 Test Item Value Reference Range Interpretation Comments MAGNESIUM (test code = 5701331235) 2.1 mg/dL 1.7-2.4 Lab Interpretation (test code = Normal 89546-6) [facility]2020-08-21 11:57:00 Test Item Value Reference Range Interpretation Comments PHOSPHORUS (test code = 9047156394) 3.4 mg/dL 2.5-5 Lab Interpretation (test code = Normal 17391-9) [facility] ABDOMEN PELVIS W [id number] 00:22:08 1. ?Multiple intraperitoneal collections as detailed [...] this study and agree with the abovereport. [facility]2020-08-20 23:20:00 Test Item Value Reference Range Interpretation Comments APPEARANCE (test code = Clear Clear 5519617223) COLOR (test code = Yellow Yellow 5497633276) PH (test code = 4.8-8.0 6359342212) SP GRAVITY (test code = 1.003-1.030 7053714989) GLU U QUAL (test code = Normal Normal 9224199396) BLOOD (test code = Negative Negative 2521646095) KETONES (test code = Negative Negative 8857566398) PROTEIN (test code = 30 mg/dL Negative A 2887-8) UROBILIN (test code = Normal Normal 7014366475) BILIRUBIN (test code = Negative Negative 6045076699) NITRITE (test code = Negative Negative 1483983859) LEUK ROGER (test code = Negative Negative 8689581506) RBC/HPF (test code = See_Comment [Autom ated message] 0958330739) The system niiu generated this result transmitted ref erence range: 0 - 3 HP F. The reference range was not used to int erpret this result as normal/abnormal . WBC/HPF (test code = <1 See_Comment [Autom ated message] 9223386443) The system niiu generated this result transmitted ref erence range: 0 - 5 HP F. The reference range was not used to int erpret this result as normal/abnormal . BACTERIA (test code = Negative Negative 1499905319) MUCOUS (test code = Slight Negative LPF A 9141312768) SQ EPITH (test code = See_Comment [Auto mated message] 7988838222) The system niiu generated this result transmitted ref erence range: <=2 HPF. The reference range was not used to int erpret this result as normal/abnormal . Lab Interpretation (test Abnormal code = 92339-2) [facility] WITH [id number] 12:08:00 Test Item Value Reference Range Interpretation Comments WBC (test code = See_Comment H [Automated 7090-2) message] The sy stem which [...] RDW-SD (test code = 48.9 fL 38.5-51.6 74132-1) RDW-CV (test code = 15.4 % 12.1-15.4 788-0) PLT (test code = See_Comment [Automated 777-3) message] The sy stem which generated this result transmitted reference range : 150 - 328 10*3/ ?L. The reference r meredith was not used to interpret this result as normal/abnormal . MPV (test code = 11.2 fL 9.8-13 94072-3) NRBC/100 WBC (test See_Comment [Automat ed code = 8212554886) message] The system which generated this result transmitted reference range : 0.0 - 10.0 /100 WBCs. The refer ence range was not u sed to interpret th is result as normal/abnormal . NRBC x10^3 (test code <0.01 See_Comment [Auto mated = 3906732783) message] The s ystem which generated this result transmitted reference range : 10*3/?L. The reference range was not used to interpret this result as normal/abnormal . GRAN MAT (NEUT) % 79.9 % (test code = 770-8) IMM GRAN % (test code 1.30 % = 1274965405) LYMPH % (test code = 7.4 % 736-9) MONO % (test code = 11.0 % 5905-5) EOS % (test code = 0.2 % 713-8) BASO % (test code = 0.2 % 706-2) GRAN MAT x10^3(ANC) 9.56 10*3/uL 1.99-6.95 H (test code = 7170946159) IMM GRAN x10^3 (test 0.15 10*3/uL 0-0.06 H code = 7911994365) LYMPH x10^3 (test code 0.89 10*3/uL 1.09-3.23 L = 731-0) MONO x10^3 (test code 1.32 10*3/uL 0.36-1.02 H = 742-7) EOS x10^3 (test code = <0.03 0.06-0.53 L 711-2) BASO x10^3 (test code <0.03 0.01-0.09 = 704-7) Lab Interpretation Abnormal (test code = 09203-7) [facility] METABOLIC PANEL (NA, K, CL, CO2, GLUCOSE, BUN, CREATININE, CA)2020-04-12 10:43:00 Test Item Value Reference Range Interpretation Comments NA (test code = 133 mmol/L 135-145 L 6041415253) K (test code = 4.3 mmol/L 3.5-5 4733477299) CL (test code = 104 mmol/L 98-108 4258786953) CO2 TOTAL (test code = 22 mmol/L 23-31 L 6136787876) AGAP (test code = 2-16 3731272731) BUN (test code = 20 mg/dL 7-23 9377670466) GLUCOSE (test code = 108 mg/dL 70-110 4537656606) CREATININE (test code = 0.77 mg/dL 0.6-1.25 7179685423) CALCIUM (test code = 8.1 mg/dL 8.6-10.6 L 9890069011) eGFR Calculation mL/min/1.73m2 (Non-) (test code = 3068201229) eGFR Calculation mL/min/1.73m2 () (test code = 5400689415) GILBERTO (test code = GILBERTO) Association of [...] tests). Lab Interpretation Abnormal (test code = 50713-6) [facility] 10:43:00 Test Item Value Reference Range Interpretation Comments MAGNESIUM (test code = 5475330340) 2.0 mg/dL 1.7-2.4 Lab Interpretation (test code = Normal 01748-5) [facility]2020-08-20 10:43:00 Test Item Value Reference Range Interpretation Comments PHOSPHORUS (test code = 7525555910) 4.3 mg/dL 2.5-5 Lab Interpretation (test code = Normal 09610-6) [facility] [id number] 04:01:00 Test Item Value Reference Range Interpretation Comments Blood Culture-Aerobic No organisms No growth Previo us (test code = 79220-9) isolated prelim inary verified result was Culture [...] Culture-Anaerobic isolated preliminar y (test code = 22152-8) verifi ed result was Culture In Progress [...] CDT Lab Interpretation Normal (test code = 28317-1) [facility] [id number] 04:01:00 Test Item Value Reference Range Interpretation Comments Blood Culture-Aerobic No organisms No growth Previo us (test code = 03683-5) isolated prelim inary verified result was Culture [...] Culture-Anaerobic isolated preliminar y (test code = 39977-2) verifi ed result was Culture In Progress [...] CDT Lab Interpretation Normal (test code = 78762-0) [facility] (NA, K, CL, CO2, GLUCOSE, BUN, CREATININE, CA)2020-04-11 10:13:00 Test Item Value Reference Range Interpretation Comments NA (test code = 138 mmol/L 135-145 5365361343) K (test code = 3.9 mmol/L 3.5-5 4253085429) CL (test code = 106 mmol/L 98-108 5137445860) CO2 TOTAL (test code = 27 mmol/L 23-31 3863887712) AGAP (test code = 2-16 8436757091) BUN (test code = 24 mg/dL 7-23 H 4455152933) GLUCOSE (test code = 97 mg/dL 70-110 5667792471) CREATININE (test code = 0.63 mg/dL 0.6-1.25 8044656692) CALCIUM (test code = 8.1 mg/dL 8.6-10.6 L 3985121619) eGFR Calculation mL/min/1.73m2 (Non-) (test code = 9674969605) eGFR Calculation mL/min/1.73m2 () (test code = 0519518812) GILBERTO (test code = GILBERTO) Association of [...] tests). Lab Interpretation Abnormal (test code = 23370-8) [facility] 10:13:00 Test Item Value Reference Range Interpretation Comments MAGNESIUM (test code = 1115277636) 1.8 mg/dL 1.7-2.4 Lab Interpretation (test code = Normal 28881-8) [facility]2020-08-19 10:13:00 Test Item Value Reference Range Interpretation Comments PHOSPHORUS (test code = 6316802611) 3.6 mg/dL 2.5-5 Lab Interpretation (test code = Normal 74784-0) [facility] WITH [id number] 10:06:00 Test Item Value Reference Range Interpretation [...] RDW-SD (test code = 48.9 fL 38.5-51.6 88446-1) RDW-CV (test code = 15.3 % 12.1-15.4 788-0) PLT (test code = See_Comment [Automated 777-3) message] The sy stem which generated this result transmitted reference range : 150 - 328 10*3/ ?L. The reference r meredith was not used to interpret this result as normal/abnormal . MPV (test code = 11.7 fL 9.8-13 12356-8) NRBC/100 WBC (test See_Comment [Automat ed code = 2493144824) message] The system which generated this result transmitted reference range : 0.0 - 10.0 /100 WBCs. The refer ence range was not u sed to interpret th is result as normal/abnormal . NRBC x10^3 (test code <0.01 See_Comment [Auto mated = 0915711242) message] The s ystem which generated this result transmitted reference range : 10*3/?L. The reference range was not used to interpret this result as normal/abnormal . GRAN MAT (NEUT) % 75.6 % (test code = 770-8) IMM GRAN % (test code 1.10 % = 0654934755) LYMPH % (test code = 10.5 % 736-9) MONO % (test code = 11.0 % 5905-5) EOS % (test code = 1.5 % 713-8) BASO % (test code = 0.3 % 706-2) GRAN MAT x10^3(ANC) 5.56 10*3/uL 1.99-6.95 (test code = 3424349134) IMM GRAN x10^3 (test 0.08 10*3/uL 0-0.06 H code = 6180798728) LYMPH x10^3 (test code 0.77 10*3/uL 1.09-3.23 L = 731-0) MONO x10^3 (test code 0.81 10*3/uL 0.36-1.02 = 742-7) EOS x10^3 (test code = 0.11 10*3/uL 0.06-0.53 711-2) BASO x10^3 (test code <0.03 0.01-0.09 = 704-7) TOXIC CHANGES (test Present A code = 803-7) Lab Interpretation Abnormal (test code = 16904-7) [facility] [id number] 22:00:00 Test Item Value Reference Range Interpretation Comments Case Report (test code Surgical Pathology ? ? = [id number]) ?Case: [id number] ? Authorizing Provider: ?Person, MD Juventino ? Collected: ? 04/06/2020 1012 ?Ordering Location: ? ? [facility] OR ? Received: ?04/06/2020 1146 ? Department ? Pathologist: ? He, Shaneka, MD ? Specimen: ? ?SOFT TISSUE, OTHER, ileo rectal anastamosis ? Final Diagnosis (test f8nfbEAvMGKfe4evIAFlpS code = 0244393736) FuZzEwMzNcZnRuYmpcdWMx XVbppiKzXKzrq7VhD3HoId AwMFxhbnNpXGRlZmxhbmcx FUCnBYD7tbViRCBkFXloCM DrHQikHi7jzDHshLxtTmGh LPAam8rdolDWkwkdnLt6v9 naFGUeEmA2sVMeDFvuE4jl mtBscMJbTHZdMOn1yE22FI HxuQ0waHBqALvpolIuOrH1 BAbjXELmIsV3NJHawUQzUK ZmU2mfBABfUPtwXMFpGMqy fVFrRDL5iLavd7K0xNCoqT DysIerGyEpCiMaYLMUt9Fg XTn9lBaeG4BvJSQhPrM3fF QgUGFyYWdyYXBoIEZvbnQ7 rN03REbnqmE0hIVtk3Ddh1 8xk781tP3ctDCvDOG7RGDt TSHbaDEsLOTyHGB1KUJxlX EvT5lmKSbrQK3elmtmTBR4 MFxtYXJndDcyMFxtYXJnYj ZmvJJdWPVivEimPCeig433 ZLP4WxGcLO8hG4Zoq4V9gB 9maXRcZGVmdGFiNzIwXGZv ea5efRSjFVteu3QpQZV7yz V6ePYdqGKbBLRsXJ34Rfhs a6BtGuimEZS8LXIzotWrj5 Zty0xzUtVtjkAaN2xfP2Iy ZHJoZWFkXHBnYnJkcmZvb3 Jwo0HlgVNwnUt5z3nqRYZo MAEuaHgmc4ldFLA6JOGxT5 Z6oGYad1geGNomKYOgdFK8 bpPyQXAltBVoC2YwcB8gVN mpDV8cppl6h6htLvRfIZ6b ymyuh7feVQavGMUcDXU6Xb MuXGQmv1PxnreyVaRkn9Pi pGNfKJdxB58db092QFPxpx NoW4lwkAPcjcpvhYMqprim DPeutjX1JWByUZZwGPhdTW YxXGZzMjBcbGFuZzEwMzNc aGljaFxmMVxkYmNoXGYxXG svO1mhLuRqPtVbRKndQXJx QO7dF43NE26yTWkOUX1rIo AYKWNSTSXDBIFXN47HO0cV FNVNWVGdLBQEC16QZuNULJ ICGOMLQ3ZQY654MLNvhuRk WNDlAC1zAvNVKBEIRLIJEE AZBLJOYRDSIXFQXTIaA1yD BBCVCdQAT18LMfDNZJmLTd yOCS0IACtDNfbpJJuOUNLB PTrPYbeoU3JAX8HSGWxODW FORFxwYXIgICAgICAgICBQ UJORCX2ZWOPSE2elKRNrPJ GzPQXlBFPYM1BZOYbCAeCX GRCGOG1URUVALQKANGWGLW VccGFyXHBhclxwbGFpblxm MVxmczIyXGxhbmcxMDMzXG hjE8beTjWuJSYtmUjjJWrw w7WsSWArDAIfFlsnnfTkGD VmX8pfaVnsKQtdCEQ1ST1n IY6SG9jQHTN3IjJ8WzBqBq MsXUP3WnCrIU5egPmtrI6l IyWvImWsQSvjAK1kHYOnF6 jamSIkINEbYKUaZ3jnQeRv aV9ymXkqPJjwroRmQSWuaB XsCGAbwq38PBM9BkEjj6L6 JDCrEfLwEYTeSE0lzYvdZX MuUK5dQCUrW2gorT6cxki5 ZtUyNSNbPlR5LHZxxqV8Ys s4YHBfSDbjv9juz7FkH9Qw lWPodUm1w0diWYObGsW3gP TjHZzoB0pcqjPquOMwHCNb BYe2jXxtFsDiVEGqr2enxx BcZmNoYXJzZXQwIENhbGli amr0yW46OTCfeR5qxAJdSC fstoWwEgW7GEfgXIQdGvS8 QIGbvBLbGGLfB8coRMHuIS xhUUMmICphsAZsTSU0bWtk l6M6zNKwkXFmjNuePzBfUn HfXPKOq7ZdUEk1uSgjK7Kc VYMwXvL4xMJiYSXdVFlbJP NbDBJvqqH0pM38YBexxcY0 wMIss9Inx73yn020rL6xvU QvXVC3GOUvQAAiaIJdAWMw ODI3TMZdtXHkP8vpBEVlTG 0xycvzKXeiYIclOQEwoWS0 QRVvtPFxI6UrEWHkYEmkLU Iuxfg9AzYdFz9zcMXpqPjv HRfqr1ayf6svlNRrZqd3VI VxTlUwRwckNDign1Lfc0rj CGPygw7fFKA1zVYpcGopc5 Z0mRXkDGJdwQCgbgGqBERp OwL1EDhkZP3fwv99ASRrMY Q9en7vmPOjjHrjecUjvPUl PFggX1JmJIMce624QESgR7 NbJVAgp3T3xmTdSsUpRNAv lDP1cjR7SYFqVVn6jCHfsa B3vnNyaTPiP6bodW5hPCLh UV2xkijjj7rvMJrqNLseVL VaiKE3ugD4KLTpnANjN6Hs uO3gRKVoVYagNOJwifc8Is LsUv8fzXPjnPgyLIciZzho YWdlXHBnbmNvbnRccGduZG VjXHBsYWluXHBsYWluXGYw SHYjKiInfMbtpJbvcF3aOu LoFoWoZMzuXR6aJTZjC8rp kXPgCIVsJVMiM6rnZlNckI 9jaFxmMVxjZjJcZnMyMFxw YXIgSSBoYXZlIHBlcnNvbm HbgMmsgfU0lHQ4HUDqQIql USQpQMWpmHFmny7aaPgeJP TvFC6hRBKiiyPjOJifnRdy YPtbOHT5RZRoxWPduSTtiX FkZSBieSByZXNpZGVudHMs NNPqnUjfi9Egr5EjgVJ6fT 2mf5ruv1LaSRIleGT6VI34 doH4tK9dIDIlJZ6qOJGgWM 5zwJHniUNsLTKlw52hjDav cyByZXBvcnQuXHBsYWluXG YyXGZzMjhcbGFuZzEwMzNc aGljaFxmMlxkYmNoXGYyXG bqH9cjHlIsDtGyIYinPLD4 fQ== Clinical Information Abdominal distention (test code = [R14.0] 9595340891) Gross Description (test r1tgcUSdTAWiiEJpKqLaUJ code = 1514260028) SvULIrs4agOTAouBPgEbWb MzNcZnRuYmpcdWMxXGRlZm Piy8bzv813aIUjh5zhSNTx XwA0wZFdRUPatBIfC427AS YoTEiob8doe9HoPZJunTYu f8L5CATTqorbsAa1uMjfH3 9mk9V2IvbxW8mlYEZfGViw POMoSQgrwNFcGGC1IOOsRD Y3NWuhqvRzmfD4OJqtkHFj NkS7KTs4m8mprTdcZCNzKI S7s4gdXOdgveIhTP6mnr3t oWb1k0idrmLcXEOeQMRgwG VGDVWwC9QkyQsoRt9mhYa8 wHpqNupyAPG7Ait7YW7acq 46wix8oTdpZEXvrmpbXkY1 XUeoZKRnsngbENb8UQaiLC LhpYIrHDVzmOEuB8IxCMxl LV1oszc0UaNqCI6hjyyaGX txCJTmBWW2WoSdKUAae7Of abqcUoGfas0tvg06WVU6w2 PucAvvEJZ3HFW2DyOsOz7g cGXuOTTbUR4mOgImqNPbFZ Cumw48wFgqVKgkodOqmD4g RoQgFDHdtTAhCEQwEU9wnG AiEOAypR2dimqdTQPgSuNf gvetKQNjpTbizgBvSk2thN evSYG7RLgeE4uzkY4wLpA4 VUmrB1izpH1cRXj2IWefwG W6KNBjqT2wTA3qpbtuk5xt BZJ0VUnlBRMfwhB6olMgRC JefDVkD9TwsW22AwXvmWIy P8ZazA4kSFjdMYMokxo1Go PgVg9pvQZvpLD8MRcpNjoa YWdlXHBnbmNvbnRccGduZG VjXHBsYWluXHBsYWluXGYw CONkDnUodHswjGrjgR4gWx BcZnMyMFxwbGFpblxmMFxm czIwIFNwZWNpbWVuIEEgcm TjYZi4LKPtSzUid4kfsQYj PAijWMY2yXOdRKMjDIZxHQ LjUC79V3AinwYnUWlzNAaa rdOtWqYxHQFzz46mdXG3iU IvcAEbDBpuPBVlXOOkQ5Fn gAMrmvWdoX6vp1OynjTqUZ 7bKAQyioNon6BlTI0bTGCq n9FzqSZkuSDwZCAij8UmoX dkamEyRwFaiR8jSXIysmXo z8cujYMcBW45CTNnCRvvMF mvgaf4lCTlutJjcgSeL6df TpYqnk7pUZCpETxjlVLncc wdKZanqvCyUGL8MbGeFJwe HDZphCsofP9qQfJvCfKwTR C9LdKnE65cSXqbxBS9EMQs WEOmpgOrj3PovqJnq3k8rE TjuVMgUDTiP3UxxWAxgkRg eZ2lh0Zkgk5fICYUiDItl3 Skw7DdxJPcIIUeq0PonYju kkRbBO2nUQmlKU0rNNJvLS mcqHVjio63ZJScMXYgiIdz ALPoGGS9z92os0rpEAYphE PsOU3rZQP7nPEjqfGrzXV8 iSUeWhWiNWxhsBX9AQKsUW hjFKZBdLEmwGDpHe4xOHHe r90axUVxvB6kTEBlKMBpJf SoR71qDlWbbJC6fMAtnEpc VHsqzPBnT3pwWJKrBSJxLh UyUlYnpTR7vNKnabXvcZFm YI3vmyhweo9kEIvoOEG0sa sjN9PsEF1rzoyuakDwHUQt PN6fVS3fADZanvQowLuaAN IqRGSkbAGpWBjdYZbbG7gj FILpxyU4OTTgbF8qZCJqlB HdHa4fTDOda31tc2r1TAV7 yFGfnZ4anHeoAWEqZUQ3d4 0hz5nnAFK0GASsLDYxrY0t AgIiHmSeVWixKFQqEQ9sIS StBETljXGfd6EfjOHpjG6k CFIuwcOmkzPhURPpnGH8d4 MdOEWitMOpv1WqNBM1xPSp XDBhjxZzDOJkLCMuUP2pmC NeDEQpnWLkn2BcnKR4pMDm VGKeN6Zcv44kWMGnOBBnzQ LhsLA3BVSfKQJxBZCilLvx nR2dBsXkLrJtGLp2VPBnUZ JzFzk2NJXtLVavMDEyMXMe MjAgQTQuXHBhclxwYXIgU2 BatQuhisNfb8UcLavsUBLq YHW9IWSQRPS5VFrtf8LyQ2 khQOwguJOzZ0viCZAvQDZu SEHhukQmyKn8TEidIBWuPX W1BSCJkIUvbZHegOSxmMDp rNXiUEHqaU1cKAEmyOVqd9 GmfVQ6cOJrJKYzrjKKMyjc YCPqdsXidjE4hQ1sTERxpH JqyZScNUZ2GjEuEF3ekxKq uOXvQGRsNTO1hV5jHT2fBH ZzQKrgAUTdu0VwEVQnSKQk YNCpmgTqnJk5LSebNAQopI ZjNOWsglUozSvbcE5sSmUw ZnMyMFxwbGFpblxmMVxmcz FqNAXunBhuHNJbaSGlJQ9Y JHqVEIRvv8vnQ0qfgUQEa2 Fyl7TkldLhXXPvZZdfGIJv XGZzMjBccGFyXHFsXHBsYW ltOSEiKAMlSpRioAxfgY1c ZjBcZnMyMFxwYXJccGFyfQ == Embedded Images (test code = 5418552807) [facility] WITH [id number] 11:29:00 Test Item Value Reference Range Interpretation [...] RDW-SD (test code = 48.8 fL 38.5-51.6 11653-8) RDW-CV (test code = 15.2 % 12.1-15.4 788-0) PLT (test code = See_Comment L [Automated 777-3) message] The sy stem which generated this result transmitted reference range : 150 - 328 10*3/ ?L. The reference r meredith was not used to interpret this result as normal/abnormal . MPV (test code = 11.6 fL 9.8-13 29022-2) NRBC/100 WBC (test See_Comment [Automat ed code = 5304436152) message] The system which generated this result transmitted reference range : 0.0 - 10.0 /100 WBCs. The refer ence range was not u sed to interpret th is result as normal/abnormal . NRBC x10^3 (test code <0.01 See_Comment [Auto mated = 0473342774) message] The s ystem which generated this result transmitted reference range : 10*3/?L. The reference range was not used to interpret this result as normal/abnormal . GRAN MAT (NEUT) % 79.1 % (test code = 770-8) IMM GRAN % (test code 0.50 % = 5187957861) LYMPH % (test code = 11.0 % 736-9) MONO % (test code = 7.8 % 5905-5) EOS % (test code = 1.4 % 713-8) BASO % (test code = 0.2 % 706-2) GRAN MAT x10^3(ANC) 4.67 10*3/uL 1.99-6.95 (test code = 0501396598) IMM GRAN x10^3 (test 0.03 10*3/uL 0-0.06 code = 1832694505) LYMPH x10^3 (test code 0.65 10*3/uL 1.09-3.23 L = 731-0) MONO x10^3 (test code 0.46 10*3/uL 0.36-1.02 = 742-7) EOS x10^3 (test code = 0.08 10*3/uL 0.06-0.53 711-2) BASO x10^3 (test code <0.03 0.01-0.09 = 704-7) Lab Interpretation Abnormal (test code = 39187-3) [facility] 11:19:00 Test Item Value Reference Range Interpretation Comments MAGNESIUM (test code = 9607616164) 1.7 mg/dL 1.7-2.4 Lab Interpretation (test code = Normal 46606-3) [facility]2020-08-18 11:19:00 Test Item Value Reference Range Interpretation Comments PHOSPHORUS (test code = 0919020983) 3.0 mg/dL 2.5-5 Lab Interpretation (test code = Normal 78350-5) [facility] CHEST 1 [id number] 13:59:01 Interval extubation and removal of enteric [...] reviewed this study and agree with theabove report.[facility] FUN[facility] PAN[facility] (88610) (ALB,T.PRO,BILI T,BU/BC,ALT,AST,ALK PHOS) 2020-04-09 11:52:00 Test Item Value Reference Range Interpretation Comments TOTAL BILI (test code = 0260854988) 1.2 mg/dL 0.1-1.1 H BILI UNCON (test code = 7832444696) 0.8 mg/dL 0.1-1.1 BILI CONJ (test code = 8136970209) 0.0 mg/dL 0-0.3 T PROTEIN (test code = 3137205561) 4.2 g/dL 6.3-8.2 L ALBUMIN (test code = 1878728818) 2.2 g/dL 3.5-5 L ALK PHOS (test code = 1836922657) 36 U/L 34-122 ALTv (test code = 1742-6) 13 U/L 5-50 AST(SGOT) (test code = 0050598128) 23 U/L 13-40 Lab Interpretation (test code = Abnormal 90778-7) [facility] WITH [id number] 10:01:00 Test Item Value Reference Range Interpretation [...] RDW-SD (test code = 47.6 fL 38.5-51.6 51232-8) RDW-CV (test code = 14.8 % 12.1-15.4 788-0) PLT (test code = See_Comment L [Automated 777-3) message] The sy stem which generated this result transmitted reference range : 150 - 328 10*3/ ?L. The reference r meredith was not used to interpret this result as normal/abnormal . MPV (test code = 11.6 fL 9.8-13 61158-6) NRBC/100 WBC (test See_Comment [Automat ed code = 7477727530) message] The system which generated this result transmitted reference range : 0.0 - 10.0 /100 WBCs. The refer ence range was not u sed to interpret th is result as normal/abnormal . NRBC x10^3 (test code <0.01 See_Comment [Auto mated = 2786212937) message] The s ystem which generated this result transmitted reference range : 10*3/?L. The reference range was not used to interpret this result as normal/abnormal . GRAN MAT (NEUT) % 87.5 % (test code = 770-8) IMM GRAN % (test code 0.90 % = 4055865735) LYMPH % (test code = 7.5 % 736-9) MONO % (test code = 3.4 % 5905-5) EOS % (test code = 0.5 % 713-8) BASO % (test code = 0.2 % 706-2) GRAN MAT x10^3(ANC) 5.12 10*3/uL 1.99-6.95 (test code = 7503235968) IMM GRAN x10^3 (test 0.05 10*3/uL 0-0.06 code = 0993279477) LYMPH x10^3 (test code 0.44 10*3/uL 1.09-3.23 L = 731-0) MONO x10^3 (test code 0.20 10*3/uL 0.36-1.02 L = 742-7) EOS x10^3 (test code = 0.03 10*3/uL 0.06-0.53 L 711-2) BASO x10^3 (test code <0.03 0.01-0.09 = 704-7) DOHLE BODIES (test Present A code = 7792-5) TOXIC CHANGES (test Present A code = 803-7) Lab Interpretation Abnormal (test code = 15158-3) [facility] METABOLIC PANEL (NA, K, CL, CO2, GLUCOSE, BUN, CREATININE, CA)2020-04-09 09:37:00 Test Item Value Reference Range Interpretation Comments NA (test code = 135 mmol/L 135-145 6868192669) K (test code = 3.6 mmol/L 3.5-5 8215800374) CL (test code = 105 mmol/L 98-108 7590315996) CO2 TOTAL (test code = 31 mmol/L 23-31 6183116237) AGAP (test code = <1 2-16 L 2822429060) BUN (test code = 28 mg/dL 7-23 H 5438616230) GLUCOSE (test code = 95 mg/dL 70-110 9611499273) CREATININE (test code = 0.78 mg/dL 0.6-1.25 4921433681) CALCIUM (test code = 8.1 mg/dL 8.6-10.6 L 0512031864) eGFR Calculation mL/min/1.73m2 (Non-) (test code = 7190192926) eGFR Calculation mL/min/1.73m2 () (test code = 3222438399) GILBERTO (test code = GILBERTO) Association of [...] tests). Lab Interpretation Abnormal (test code = 19581-2) [facility] Test Item Value Reference Range Interpretation Comments MAGNESIUM (test code = 5249416688) 1.8 mg/dL 1.7-2.4 Lab Interpretation (test code = Normal 40176-6) [facility]2020-08-17 09:36:00 Test Item Value Reference Range Interpretation Comments PHOSPHORUS (test code = 0249935664) 1.8 mg/dL 2.5-5 L Lab Interpretation (test code = Abnormal 11223-2) [facility] 20 + LACTIC [id number] 21:18:00 Test Item Value Reference Range Interpretation Comments PH (test code = 2) 7.35-7.45 PCO2 (test code = See_Comment [Automate d 7226764389) message] The sy stem which generated this result transmitted reference range : 35 - 45 mmHg. The reference range was not used to interpret this result as normal/abnormal . PO2 (test code = See_Comment L [Automated 5671559338) message] The sy stem which generated this result transmitted reference range : 80 - 100 mmHg. The reference range was not used to interpret this result as normal/abnormal . HCO3 (test code = See_Comment [Automate d 2261742717) message] The sy stem which generated this result transmitted reference range : 22 - 26 mEq/L. The reference range was not used to interpret this result as normal/abnormal . BE (test code = See_Comment [Automated 3111499701) message] The sy stem which generated this result transmitted reference range : -3.0 - 3.0 mEq/ L. The reference r meredith was not used to interpret this result as normal/abnormal . THB (test code = 9.2 g/dL 13.5-18 L 8878743743) %O2HB (test code = 94.3 % 94-99 5468199961) %COHB ART (test code = 0.7 % 0-1.5 3282239152) %METHB ART (test code = 0.3 % 0.4-1.5 L 5616339882) VOL%O2 ART (test code = 12.3 % 15-23 L 0277851799) NA (test code = 135 mmol/L 135-145 1222179152) K+ (test code = 3.7 mmol/L 3.5-5 8050279502) AC CA IONZ (test code = 4.90 mg/dL 4.5-5.3 1332640610) GLUCOSE (test code = 94 mg/dL 70-110 0342554969) LACTIC ACID (test code 1.35 mmol/L = 9621759688) Lab Interpretation Abnormal (test code = 04804-2) [facility] GLUCOSE (AUTOMATED)2020-04-08 16:33:00 Test Item Value Reference Range Interpretation Comments POCT GLU (test code = 0322654831) 109 mg/dL 70-110 Lab Interpretation (test code = Normal 31102-2) [facility] GLUCOSE (AUTOMATED)2020-04-08 16:33:00 Test Item Value Reference Range Interpretation Comments POCT GLU (test code = 0248690076) 120 mg/dL 70-110 H Lab Interpretation (test code = Abnormal 43537-1) [facility] GLUCOSE (AUTOMATED)2020-04-08 16:33:00 Test Item Value Reference Range Interpretation Comments POCT GLU (test code = 6258820787) 93 mg/dL 70-110 Lab Interpretation (test code = Normal 81792-9) [facility] GLUCOSE (AUTOMATED)2020-04-08 12:46:00 Test Item Value Reference Range Interpretation Comments POCT GLU (test code = 4604513613) 109 mg/dL 70-110 Lab Interpretation (test code = Normal 82027-5) [facility] WITH [id number] 10:21:00 Test Item Value Reference Range Interpretation [...] RDW-SD (test code = 48.4 fL 38.5-51.6 91776-3) RDW-CV (test code = 15.0 % 12.1-15.4 788-0) PLT (test code = See_Comment L [Automated 777-3) message] The system which generated this result transmitted reference range : 150 - 328 10*3/?L. The reference range was not used to interpret this result as normal/abnormal . MPV (test code = 11.4 fL 9.8-13 54908-4) NRBC/100 WBC (test See_Comment [Automat ed code = 5834472515) message] The system which generated this result transmitted reference range : 0.0 - 10.0 /100 WBCs. The reference range was not used to interpret this result as normal/abnormal . NRBC x10^3 (test code <0.01 See_Comment [Auto mated = 8262765952) message] The system which generated this result transmitted reference range : 10*3/?L. The reference range was not used to interpret this result as normal/abnormal . GRAN MAT (NEUT) % 84.9 % (test code = 770-8) IMM GRAN % (test code 0.80 % = 2443933342) LYMPH % (test code = 7.9 % 736-9) MONO % (test code = 5.3 % 5905-5) EOS % (test code = 0.3 % 713-8) BASO % (test code = 0.8 % 706-2) GRAN MAT x10^3(ANC) 3.34 10*3/uL 1.99-6.95 (test code = 3154452764) IMM GRAN x10^3 (test 0.03 10*3/uL 0-0.06 code = 1711771396) LYMPH x10^3 (test 0.31 10*3/uL 1.09-3.23 L code = 731-0) MONO x10^3 (test code 0.21 10*3/uL 0.36-1.02 L = 742-7) EOS x10^3 (test code <0.03 0.06-0.53 L = 711-2) BASO x10^3 (test code 0.03 10*3/uL 0.01-0.09 = 704-7) GOLDEN CELLS (test code 2+ See_Comment A [Auto mated = 4354-9) message] The system which generated this result transmitted reference range : (none). The reference range was not used to interpret this result as normal/abnormal . BANDS (test code = MARKED INCREASED A 8507606416) DOHLE BODIES (test Present A code = 7792-5) TOXIC CHANGES (test Present A code = 803-7) Lab Interpretation Abnormal (test code = 47987-4) [facility] METABOLIC PANEL (NA, K, CL, CO2, GLUCOSE, BUN, CREATININE, CA)2020-04-08 10:02:00 Test Item Value Reference Range Interpretation Comments NA (test code = 138 mmol/L 135-145 0464177480) K (test code = 4.1 mmol/L 3.5-5 3871301284) CL (test code = 109 mmol/L 98-108 H 6303135567) CO2 TOTAL (test code = 25 mmol/L 23-31 0047031271) AGAP (test code = 2-16 0365876358) BUN (test code = 26 mg/dL 7-23 H 3615155907) GLUCOSE (test code = 103 mg/dL 70-110 7763532505) CREATININE (test code = 0.90 mg/dL 0.6-1.25 2361874938) CALCIUM (test code = 8.4 mg/dL 8.6-10.6 L 6681244232) eGFR Calculation mL/min/1.73m2 (Non-) (test code = 7592035129) eGFR Calculation mL/min/1.73m2 () (test code = 9759865685) GILBERTO (test code = GILBERTO) Association of [...] tests). Lab Interpretation Abnormal (test code = 21956-5) [facility]16 10:02:00 Test Item Value Reference Range Interpretation Comments MAGNESIUM (test code = 4113648847) 2.6 mg/dL 1.7-2.4 H Lab Interpretation (test code = Abnormal 18954-9) [facility] + LACTIC [id number] 09:43:00 Test Item Value Reference Range Interpretation Comments PH (test code = 7.32-7.42 9665375383) PCO2 PANKAJ (test code = See_Comment [Auto mated 6670458949) message] The sy stem which generated this result transmitted reference range : 41 - 51 mmHg. The reference range was not used to interpret this result as normal/abnormal . PO2 PANKAJ (test code = See_Comment [Autom ated 9569390027) message] The sy stem which generated this result transmitted reference range : 25 - 40 mmHg. The reference range was not used to interpret this result as normal/abnormal . HCO3 PANKAJ (test code = See_Comment [Auto mated 8018388591) message] The sy stem which generated this result transmitted reference range : 24 - 28 mEq/L. The reference range was not used to interpret this result as normal/abnormal . AC VBE(BEAKER) (test mEq/L code = 6448667058) THB PANKAJ (test code = 11.4 g/dL 13.5-18 L 7015148811) %O2HB PANKAJ (test code = 64.9 % 52-63 H 7521433659) %COHB PANKAJ (test code = 1.0 % 0-1.5 8113065289) %METHB PANKAJ (test code = 0.3 % 0.4-1.5 L 6116835078) VOL%O2 PANKAJ (test code = 10.4 % 6-12 0561326250) NA (test code = 138 mmol/L 135-145 9962279606) K+ (test code = 4.1 mmol/L 3.5-5 3085764177) AC CA IONZ (test code = 4.90 mg/dL 4.5-5.3 7334128996) GLUCOSE (test code = 98 mg/dL 70-110 7736616827) LACTIC ACID (test code 1.90 mmol/L = 1014597630) Lab Interpretation Abnormal (test code = 69117-0) [facility]2020-04-08 04:25:00 Test Item Value Reference Range Interpretation Comments POCT GLU (test code = 3842857851) 106 mg/dL 70-110 Lab Interpretation (test code = Normal 70617-6) [facility] CHEST 1 [id number] 22:55:21Impression: Stable findings with no new changes.Exam: [...] unchanged.IMPRESSIONIm pression: Stable findings with no new changes.[facility] MRSA / MSSA Screen by Estefanía [id number] 19:28:00 Test Item Value Reference Range Interpretation Comments MSSA Screen by PCREstefanía (test code Negative Negative = 70499-7) MRSA/MSSA Positive? (test code = No No [id number]) Lab Interpretation (test code = Normal 37400-0) [facility]2020-04-07 17:01:00 Test Item Value Reference Range Interpretation Comments POCT GLU (test code = 9653682557) 95 mg/dL 70-110 Lab Interpretation (test code = Normal 16805-9) [facility] + LACTIC [id number] 14:15:00 Test Item Value Reference Range Interpretation Comments PH (test code = 2) 7.35-7.45 L PCO2 (test code = See_Comment [Automate d 5321277137) message] The sy stem which generated this result transmitted reference range : 35 - 45 mmHg. The reference range was not used to interpret this result as normal/abnormal . PO2 (test code = See_Comment H [Automated 1023369251) message] The sy stem which generated this result transmitted reference range : 80 - 100 mmHg. The reference range was not used to interpret this result as normal/abnormal . HCO3 (test code = See_Comment L [Automate d 9491229023) message] The sy stem which generated this result transmitted reference range : 22 - 26 mEq/L. The reference range was not used to interpret this result as normal/abnormal . BE (test code = See_Comment L [Automated 0542360401) message] The sy stem which generated this result transmitted reference range : -3.0 - 3.0 mEq/ L. The reference r meredith was not used to interpret this result as normal/abnormal . THB (test code = 9.6 g/dL 13.5-18 L 7726590004) %O2HB (test code = 98.6 % 94-99 3150137758) %COHB ART (test code = 0.3 % 0-1.5 1027945196) %METHB ART (test code = 0.0 % 0.4-1.5 L 1037883999) VOL%O2 ART (test code = NA 2830758015) NA (test code = 131 mmol/L 135-145 L 0853656862) K+ (test code = 4.3 mmol/L 3.5-5 4304521996) AC CA IONZ (test code = 4.60 mg/dL 4.5-5.3 3675892721) GLUCOSE (test code = 147 mg/dL 70-110 H 7945501019) LACTIC ACID (test code 3.12 mmol/L 0.5-2.2 H = 8508988245) Lab Interpretation Abnormal (test code = 79950-9) [facility] AmericaLam[facility] Acid Whole [id number] 14:00:00 Test Item Value Reference Range Interpretation Comments LACTIC ACID (test code = 3.12 mmol/L 2160252599) [facility]2020-04-07 12:53:00 Test Item Value Reference Range Interpretation Comments POCT GLU (test code = 8148351666) 140 mg/dL 70-110 H Lab Interpretation (test code = Abnormal 73472-7) [facility] + LACTIC [id number] 12:01:00 Test Item Value Reference Range Interpretation Comments PH (test code = 2) 7.35-7.45 L PCO2 (test code = See_Comment L [Automate d 5738416546) message] The sy stem which generated this result transmitted reference range : 35 - 45 mmHg. The reference range was not used to interpret this result as normal/abnormal . PO2 (test code = See_Comment H [Automated 9006349055) message] The sy stem which generated this result transmitted reference range : 80 - 100 mmHg. The reference range was not used to interpret this result as normal/abnormal . HCO3 (test code = See_Comment L [Automate d 3606233289) message] The sy stem which generated this result transmitted reference range : 22 - 26 mEq/L. The reference range was not used to interpret this result as normal/abnormal . BE (test code = See_Comment L [Automated 0524095766) message] The sy stem which generated this result transmitted reference range : -3.0 - 3.0 mEq/ L. The reference r meredith was not used to interpret this result as normal/abnormal . THB (test code = 10.8 g/dL 13.5-18 L 8884660861) %O2HB (test code = 98.8 % 94-99 5737865288) %COHB ART (test code = 0.3 % 0-1.5 1998478506) %METHB ART (test code = 0.0 % 0.4-1.5 L 1217247618) VOL%O2 ART (test code = 15.4 % 15-23 7933595303) NA (test code = 126 mmol/L 135-145 L 7782665443) K+ (test code = 4.3 mmol/L 3.5-5 3897501721) AC CA IONZ (test code = 4.70 mg/dL 4.5-5.3 0876917193) GLUCOSE (test code = 144 mg/dL 70-110 H 6026986581) LACTIC ACID (test code 2.79 mmol/L = 2692609652) Lab Interpretation Abnormal (test code = 54480-3) [facility] America[facility] [id number] 11:44:00 Test Item Value Reference Range Interpretation Comments URINE CULTURE (test No aerobic growth (< code = 630-4) 1000 CFU/mL) [facility] WITH [id number] 09:53:00 Test Item Value Reference Range Interpretation [...] RDW-SD (test code = 48.8 fL 38.5-51.6 58043-4) RDW-CV (test code = 15.0 % 12.1-15.4 788-0) PLT (test code = See_Comment L [Automated 777-3) message] The sy stem which generated this result transmitted reference range : 150 - 328 10*3/ ?L. The reference r meredith was not used to interpret this result as normal/abnormal . MPV (test code = 11.8 fL 9.8-13 38149-0) IPF % (test code = 6.5 % 1.2-10.7 Platelet count 7137900264) measured by fluorescence method. NRBC/100 WBC (test See_Comment [Automat ed code = 0033627836) message] The system which generated this result transmitted reference range : 0.0 - 10.0 /100 WBCs. The refer ence range was not u sed to interpret th is result as normal/abnormal . NRBC x10^3 (test code <0.01 See_Comment [Auto mated = 4949686113) message] The s ystem which generated this result transmitted reference range : 10*3/?L. The reference range was not used to interpret this result as normal/abnormal . SEG % (test code = 20 % 33-76 L 99550-3) BAND % (test code = 45 % 0-1 H 96243-5) META % (test code = 9 % See_Comment H [Automa dain 93348-5) message] The sy stem which generated this result transmitted reference range : <=0. The refere nce range was not u sed to interpret th is result as normal/abnormal . MYELO % (test code = 1 % See_Comment H [Autom ated 65474-6) message] The sy stem which generated this result transmitted reference range : <=0. The refere nce range was not u sed to interpret th is result as normal/abnormal . LYMPH % (test code = 20 % 14-54 79971-3) MONO % (test code = 5 % 0-4 H 58266-6) ANC (test code = 1.40 10*3/uL 1.99-6.95 L 7181138978) GOLDEN CELLS (test code 2+ See_Comment A [...] 803-7) Lab Interpretation Abnormal (test code = 52632-4) [facility] METABOLIC PANEL (NA, K, CL, CO2, GLUCOSE, BUN, CREATININE, CA)2020-04-07 09:21:00 Test Item Value Reference Range Interpretation Comments NA (test code = 137 mmol/L 135-145 5465863072) K (test code = 4.6 mmol/L 3.5-5 3034323104) CL (test code = 110 mmol/L 98-108 H 5872256696) CO2 TOTAL (test code = 17 mmol/L 23-31 L 7333887867) AGAP (test code = 2-16 6701890329) BUN (test code = 24 mg/dL 7-23 H 6105851887) GLUCOSE (test code = 132 mg/dL 70-110 H 2006725166) CREATININE (test code = 1.23 mg/dL 0.6-1.25 2555649370) CALCIUM (test code = 8.0 mg/dL 8.6-10.6 L 2513369491) eGFR Calculation mL/min/1.73m2 (Non-) (test code = 8302284719) eGFR Calculation mL/min/1.73m2 () (test code = 3577604493) GILBERTO (test code = GILBERTO) Association of [...] tests). Lab Interpretation Abnormal (test code = 44652-9) [facility] 09:19:00 Test Item Value Reference Range Interpretation Comments MAGNESIUM (test code = 9649892975) 2.9 mg/dL 1.7-2.4 H Lab Interpretation (test code = Abnormal 89561-4) [facility]2020-04-07 04:37:00 Test Item Value Reference Range Interpretation Comments POCT GLU (test code = 4213517067) 111 mg/dL 70-110 H Lab Interpretation (test code = Abnormal 03945-6) [facility] [id number] 02:35:00 Test Item Value Reference Range Interpretation Comments HCV Ab (test code = 45934-1) Negative HCV Semi-Quantitative (test code = 24250-4) [facility] PAN[facility] 21 + LACTIC [id number] 02:15:00 Test Item Value Reference Range Interpretation Comments PH (test code = 7.32-7.42 L 7686822505) PCO2 PANKAJ (test code = See_Comment L [Auto mated 6866590044) message] The sy stem which generated this result transmitted reference range : 41 - 51 mmHg. The reference range was not used to interpret this result as normal/abnormal . PO2 PANKAJ (test code = See_Comment HH [Autom ated 9774136883) message] The sy stem which generated this result transmitted reference range : 25 - 40 mmHg. The reference range was not used to interpret this result as normal/abnormal . HCO3 PANKAJ (test code = See_Comment L [Auto mated 2865703105) message] The sy stem which generated this result transmitted reference range : 24 - 28 mEq/L. The reference range was not used to interpret this result as normal/abnormal . AC VBE(BEAKER) (test mEq/L code = 6238715549) THB PANKAJ (test code = 11.2 g/dL 13.5-18 L 1652474459) %O2HB PANKAJ (test code = 98.7 % 52-63 H 2717086745) %COHB PANKAJ (test code = 0.3 % 0-1.5 3065886315) %METHB PANKAJ (test code = 0.1 % 0.4-1.5 L 7027690045) VOL%O2 PANKAJ (test code = 15.9 % 6-12 H 6909738974) NA (test code = 136 mmol/L 135-145 3771982946) K+ (test code = 4.2 mmol/L 3.5-5 0974294752) AC CA IONZ (test code = 4.60 mg/dL 4.5-5.3 9171721620) GLUCOSE (test code = 108 mg/dL 70-110 4596632608) LACTIC ACID (test code 2.37 mmol/L = 1966605709) Lab Interpretation Abnormal (test code = 03236-8) [facility]+COOX+NA+K+GLU+CA2+2020-04-07 01:54:00 Test Item Value Reference Range Interpretation Comments PH (test code = 2) 7.35-7.45 LL PCO2 (test code = See_Comment [Automate d message] 5588580938) The system niiu generated this result transmit dain reference range : 35 - 45 mmHg. The reference range was not used to interpret this result as normal/abnormal . PO2 (test code = See_Comment H [Automated message] 9897482772) The system whic h generated this result transmit dain reference range : 80 - 100 mmHg. The reference range was not used to interpret this result as normal/abnormal . HCO3 (test code = See_Comment L [Automate d message] 0252000005) The system niiu generated this result transmit dain reference range : 22 - 26 mEq/L. The reference range was not used to interpret this result as normal/abnormal . BE (test code = See_Comment L [Automated message] 8739311774) The system niiu generated this result transmit dain reference range : -3.0 - 3.0 mEq/ L. The reference r meredith was not used to interpret this result as normal/abnormal . THB (test code = 10.6 g/dL 13.5-18 L 3973075503) %O2HB (test code = 99.0 % 94-99 8934136852) %COHB ART (test code = 0.3 % 0-1.5 4133242214) %METHB ART (test code = 0.3 % 0.4-1.5 L 7890284889) VOL%O2 ART (test code = 15.3 % 15-23 6655857600) NA (test code = 136 mmol/L 135-145 9977161640) K+ (test code = 3.1 mmol/L 3.5-5 L 1292372299) AC CA IONZ (test code = 4.30 mg/dL 4.5-5.3 L 7853179893) GLUCOSE (test code = 113 mg/dL 70-110 H 1518305051) Lab Interpretation Abnormal (test code = 49148-0) [facility]+COOX+NA+K+GLU+CA2+2020-04-07 01:53:00 Test Item Value Reference Range Interpretation Comments PH (test code = 2) 7.35-7.45 PCO2 (test code = See_Comment L [Automate d message] 2948726259) The system niiu generated this result transmit dain reference range : 35 - 45 mmHg. The reference range was not used to interpret this result as normal/abnormal . PO2 (test code = See_Comment H [Automated message] 1563093602) The system niiu generated this result transmit dain reference range : 80 - 100 mmHg. The reference range was not used to interpret this result as normal/abnormal . HCO3 (test code = See_Comment L [Automate d message] 3202530171) The system niiu generated this result transmit dain reference range : 22 - 26 mEq/L. The reference range was not used to interpret this result as normal/abnormal . BE (test code = See_Comment L [Automated message] 8772177361) The system niiu generated this result transmit dain reference range : -3.0 - 3.0 mEq/ L. The reference r meredith was not used to interpret this result as normal/abnormal . THB (test code = 13.1 g/dL 13.5-18 L 6055244570) %O2HB (test code = 98.9 % 94-99 3120892782) %COHB ART (test code = 0.1 % 0-1.5 7461082450) %METHB ART (test code = 0.6 % 0.4-1.5 1695343458) VOL%O2 ART (test code = 19.3 % 15-23 3616124628) NA (test code = 132 mmol/L 135-145 L 9872252704) K+ (test code = 4.2 mmol/L 3.5-5 6404381578) AC CA IONZ (test code = 4.60 mg/dL 4.5-5.3 0142739725) GLUCOSE (test code = 99 mg/dL 70-110 3530387093) Lab Interpretation Abnormal (test code = 68939-5) [facility]/2 AG-AB WITH [id number] 01:29:00 Test Item Value Reference Range Interpretation Comments HIV Negative Negative Semi-quantitative (test code = 51938-4) GILBERTO (test code = Non-reactive for HIV-1 GILBERTO) antigen and HIV-1/HIV-2 antibodies. ?No laboratory evidence of HIV infection. ?Repeat in 2-4 weeks if acute HIV infection is suspected. [facility] GLUCOSE (AUTOMATED)2020-04-07 00:40:00 Test Item Value Reference Range Interpretation Comments POCT GLU (test code = 3226554590) 100 mg/dL 70-110 Lab Interpretation (test code = Normal 55236-4) [facility] GLUCOSE (AUTOMATED)2020-04-07 00:06:00 Test Item Value Reference Range Interpretation Comments POCT GLU (test code = 1503392382) 116 mg/dL 70-110 H Lab Interpretation (test code = Abnormal 65872-4) [facility]2020-04-06 22:48:00 Test Item Value Reference Range Interpretation Comments POCT GLU (test code = 6628849512) 94 mg/dL 70-110 Lab Interpretation (test code = Normal 87315-0) [facility] America[facility] CHEST 1 [id number] 21:06:45 1. Interval placement of right internal [...] reviewed this study and agree with the abovereport.[facility] WITH [id number] 20:15:00 Test Item Value Reference Range Interpretation Comments WBC (test code = See_Comment LL [Automated 7590-2) message] The sy stem which [...] RDW-SD (test code = 49.2 fL 38.5-51.6 53430-4) RDW-CV (test code = 14.7 % 12.1-15.4 788-0) PLT (test code = See_Comment L [Automated 777-3) message] The sy stem which generated this result transmitted reference range : 150 - 328 10*3/ ?L. The reference r meredith was not used to interpret this result as normal/abnormal . MPV (test code = 12.1 fL 9.8-13 37570-9) NRBC/100 WBC (test See_Comment [Automat ed code = 4408183239) message] The system which generated this result transmitted reference range : 0.0 - 10.0 /100 WBCs. The refer ence range was not u sed to interpret th is result as normal/abnormal . NRBC x10^3 (test code <0.01 See_Comment [Auto mated = 0626264235) message] The s ystem which generated this result transmitted reference range : 10*3/?L. The reference range was not used to interpret this result as normal/abnormal . SEG % (test code = 38 % 33-76 58110-6) BAND % (test code = 28 % 0-1 H 80823-8) META % (test code = 4 % See_Comment H [Automa dain 61564-6) message] The sy stem which generated this result transmitted reference range : <=0. The refere nce range was not u sed to interpret th is result as normal/abnormal . MYELO % (test code = 6 % See_Comment H [Autom ated 22536-6) message] The sy stem which generated this result transmitted reference range : <=0. The refere nce range was not u sed to interpret th is result as normal/abnormal . LYMPH % (test code = 16 % 14-54 73143-1) MONO % (test code = 8 % 0-4 H 35000-1) ANC (test code = 0.40 10*3/uL 1.99-6.95 L 4123394327) GOLDEN CELLS (test code 3+ See_Comment A [Auto mated = 7790-9) message] The sy stem which generated this result transmitted reference range : (none). The reference range was not used to interpret this result as normal/abnormal . DOHLE BODIES (test Present A code = 7792-5) Lab Interpretation Abnormal (test code = 83841-4) [facility]2020-08-14 19:55:00 Test Item Value Reference Range Interpretation Comments APTT Patient (test code See_Comment H [Au tomated message] = 3173-2) The system whic h generated this result transmitted ref erence range: 26 - 36 Seconds. The reference range was not used to int erpret this result as normal/abnormal . Lab Interpretation (test Abnormal code = 67674-4) [facility] AmericaPROTHROMBIN TIME / [id number] 19:55:00 Test Item Value Reference Range Interpretation [...] tions. Lab Interpretation (test Abnormal code = 90036-4) [facility] AmericaCOMP. METABOLIC PANEL (40132)2020-04-06 19:50:00 Test Item Value Reference Range Interpretation Comments NA (test code = 137 mmol/L 135-145 5752817811) K (test code = 3.6 mmol/L 3.5-5 7210999140) CL (test code = 109 mmol/L 98-108 H 5294159851) CO2 TOTAL (test code = 18 mmol/L 23-31 L 9945806950) AGAP (test code = 2-16 4360283027) BUN (test code = 27 mg/dL 7-23 H 5085815919) GLUCOSE (test code = 91 mg/dL 70-110 7227192288) CREATININE (test code = 1.38 mg/dL 0.6-1.25 H 3281224368) TOTAL BILI (test code = 1.0 mg/dL 0.1-1.0 5271092364) CALCIUM (test code = 8.0 mg/dL 8.6-10.6 L 2866044375) T PROTEIN (test code = 4.3 g/dL 6.3-8.2 L 6228805411) ALBUMIN (test code = 2.7 g/dL 3.5-5 L 4974187591) ALK PHOS (test code = <20 34-122 L 4131793922) ALTv (test code = 9 U/L 5-50 1742-6) AST(SGOT) (test code = 21 U/L 13-40 1367094993) eGFR Calculation mL/min/1.73m2 (Non-) (test code = 5373506326) eGFR Calculation mL/min/1.73m2 () (test code = 2160854429) GILBERTO (test code = GILBERTO) Association of [...] tests). Lab Interpretation Abnormal (test code = 01864-1) [facility] METABOLIC PANEL (NA, K, CL, CO2, GLUCOSE, BUN, CREATININE, CA)2020-04-06 19:50:00 Test Item Value Reference Range Interpretation Comments NA (test code = 137 mmol/L 135-145 1816937616) K (test code = 3.6 mmol/L 3.5-5 8383588258) CL (test code = 109 mmol/L 98-108 H 9948001752) CO2 TOTAL (test code = 18 mmol/L 23-31 L 1379265014) AGAP (test code = 2-16 2227107839) BUN (test code = 27 mg/dL 7-23 H 9403824980) GLUCOSE (test code = 91 mg/dL 70-110 4417711208) CREATININE (test code = 1.38 mg/dL 0.6-1.25 H 5169236881) CALCIUM (test code = 8.0 mg/dL 8.6-10.6 L 1933946732) eGFR Calculation mL/min/1.73m2 (Non-) (test code = 4153847957) eGFR Calculation mL/min/1.73m2 () (test code = 1356030604) GILBERTO (test code = GILBERTO) Association of [...] tests). Lab Interpretation Abnormal (test code = 43398-9) [facility] 19:44[facility]00 Test Item Value Reference Range Interpretation Comments MAGNESIUM (test code = 2262719061) 1.7 mg/dL 1.7-2.4 Lab Interpretation (test code = Normal 04609-0) [facility] PANEL 21 + LACTIC [id number] 19:25:00 Test Item Value Reference Range Interpretation Comments PH (test code = 7.32-7.42 L 7712479509) PCO2 PANKAJ (test code = See_Comment L [Auto mated 9762197630) message] The sy stem which generated this result transmitted reference range : 41 - 51 mmHg. The reference range was not used to interpret this result as normal/abnormal . PO2 PANKAJ (test code = See_Comment H [Autom ated 3606056528) message] The sy stem which generated this result transmitted reference range : 25 - 40 mmHg. The reference range was not used to interpret this result as normal/abnormal . HCO3 PANKAJ (test code = See_Comment L [Auto mated 8860739464) message] The sy stem which generated this result transmitted reference range : 24 - 28 mEq/L. The reference range was not used to interpret this result as normal/abnormal . AC VBE(BEAKER) (test mEq/L code = 7635730349) THB PANKAJ (test code = 10.1 g/dL 13.5-18 L 6562557812) %O2HB PANKAJ (test code = 84.0 % 52-63 H 0560242725) %COHB PANKAJ (test code = 0.6 % 0-1.5 1605678210) %METHB PANKAJ (test code = 0.3 % 0.4-1.5 L 3152677653) VOL%O2 PANKAJ (test code = 12.0 % 6-12 4178078875) NA (test code = 135 mmol/L 135-145 1037125070) K+ (test code = 3.5 mmol/L 3.5-5 5430829321) AC CA IONZ (test code = 4.50 mg/dL 4.5-5.3 3788490869) GLUCOSE (test code = 87 mg/dL 70-110 3622590514) LACTIC ACID (test code 3.34 mmol/L = 0849600863) Lab Interpretation Abnormal (test code = 96480-0) [facility] PANEL 20 + LACTIC [id number] 19:19:00 Test Item Value Reference Range Interpretation Comments PH (test code = 2) 7.35-7.45 L PCO2 (test code = See_Comment L [Automate d 3958183431) message] The sy stem which generated this result transmitted reference range : 35 - 45 mmHg. The reference range was not used to interpret this result as normal/abnormal . PO2 (test code = See_Comment H [Automated 8859859401) message] The sy stem which generated this result transmitted reference range : 80 - 100 mmHg. The reference range was not used to interpret this result as normal/abnormal . HCO3 (test code = See_Comment L [Automate d 2184331672) message] The sy stem which generated this result transmitted reference range : 22 - 26 mEq/L. The reference range was not used to interpret this result as normal/abnormal . BE (test code = See_Comment L [Automated 0217312804) message] The sy stem which generated this result transmitted reference range : -3.0 - 3.0 mEq/ L. The reference r meredith was not used to interpret this result as normal/abnormal . THB (test code = 10.4 g/dL 13.5-18 L 1964109468) %O2HB (test code = 98.3 % 94-99 3911261504) %COHB ART (test code = 0.3 % 0-1.5 1438401313) %METHB ART (test code = 0.3 % 0.4-1.5 L 5901126892) VOL%O2 ART (test code = 14.8 % 15-23 L 5849035490) NA (test code = 135 mmol/L 135-145 2237800905) K+ (test code = 3.5 mmol/L 3.5-5 8099945390) AC CA IONZ (test code = 4.50 mg/dL 4.5-5.3 2003409232) GLUCOSE (test code = 96 mg/dL 70-110 6180836701) LACTIC ACID (test code 2.95 mmol/L = 9885583574) Lab Interpretation Abnormal (test code = 66791-9) [facility] [id number] 16:51:00 Test Item Value Reference Range Interpretation Comments Case Report (test code Surgical Pathology ? ? = [id number]) ?Case: [id number] ? Authorizing Provider: ?Bia Pedro MD ?Collected: ? 04/03/2020 1513 ?Ordering Location: ? ? [facility] OR ? Received: ?04/03/2020 1657 ? Department ? Pathologist: ? Nimisha Galloway MD PHD ?Specimens: ? A) - COLON, total abdominal colectomy ? B) - COLON, donuts x2 ? Final Diagnosis (test b4miuXTlVHBdj0csVELlgL code = 5329203415) FuZzEwMzNcZnRuYmpcdWMx RJufvoEaFNpoa5VqM5IxFj AwMFxhbnNpXGRlZmxhbmcx JUMtIFB8rtVpKBLzQGbwNF KfYYbuXu2xyHZudDedNeUu OQJyx8zlabYJmxtwlKd6h5 vfTAIaMlZ6fKPlYGgiF0mu rkImpUKiDDAaVBs8tU98QV ZqhM0umXKbGClgjbTsGLzq weLivpHcOth9RWZjU6yiBT TsFVRqG0ZxUF4nTILmUsa9 DAO8EGH9zNqyl8U6dVYmdE MqhQkoUnZzYpZsMCCYa4Qo AVx2tVsfD7FnRBUjFbV4eX QgUGFyYWdyYXBoIEZvbnQ7 gMgtH0NtXKBxCwJ0xRPvND HeCIrqUKNeCn6wyFo5lHrv MahjRQM4Get1SN5mjc58hn p7cRidVHIkykdkWaW8AYpj HTRsotboMRl9RHfvPABdxX ItIPEixDHqA6JcWOkkFD2z xrt6XqUqXP5dyxvoPKybWJ EgOFE9YaKpZNAji8Mhqhlc QfSkxz8ffo76DDO5i9EgyZ ahTAG9XLS1RaIwAt2ysQNi YLFoBZ9qTsFipJYfNGLytn 02fPcfNCygxdXxpI3vUzAq EIDwpEBrOOVkEN3tlMQwWX TpqX1ocovgEPPkTfNgyoan SPPknRxnqzHrKx6bzDetUG Q4PHnyK3ifqL6vGqB5ZPng U3ahqR7eGUn7RBggiRP1MP UgrR8fVK7mnqldn9uuRYA6 ZDmdKILmrwB8zlDoNQLojB GfU5OngQ32VwSobVKfJ1Jz rW4cWHkhMAHhuzg8WkUfXe 7gqSUvkYD3GHltIflrOLcl XHBnbmNvbnRccGduZGVjXH BsYWluXHBsYWluXGYwXGZz EeWweXislBmfbS5sJiBkJi MyMFxwbGFpblxmMVxmczIw HDVugrDIRdADV4aKSpsuOY 3SSRqbHvBMHMDJSA8AUbjm HNLmZIRbYO2qQzDGG7DELR DvL94OP0WUNZlRHoGXEBWP EVJEUn3SJ82YMRLLTD8YWx TCWVsNBNKCQ79TMDSTUZPF WmHMTYPTWVCZI6rMQEgeAM CnAFUuXGCtY1TBNDWKX6ZP G17qYAVwvmUgJSIkRDPOLR mHMICZVUXJHLIXO2FZGE1I BG8ZHEmVKFKtO4sUUFZVIC ZhH29OD08OVdREGrIHHHqJ JDLDNJNTDU9GNIpTZkTHSQ lVDcrUBTXSP7IMFHCoqOHu WTWpLWUoLK2SH0SLGJHPLA 9OXHBhciAgICAgLSBOTyBF LciOSU9XVUZTBsCFGYUZA0 LGBC8YT8MWS5dKABvsWFDr HKGkFM3cVU2GNIHHZxESEO BTRVNTSUxFIFNFUlJBVEVE LNCTQM3JJGHfuRWjVDMjNL AtIFJFQUNUSVZFIExZTVBI ES8FSBXQTUYpknJhOHLaAF EYMIQQCVElXnADBYGLOI4N TQ5KLywSElJbzPCzTPGgkb xwbGFpblxmMVxmczIyXGxh ycdtAWNeETuvO3paJmRyIC OdvCymHCiic0HsFOVmMIIh EPckgsDxSDUye1zrTUQrMs C8vDVqVCGAKaRZOqGcCH9z UE7qUEHtZYCxSVuiGrYLOQ xwbGFpblxmMVxmczIwXHBh rxtbAQP9o4eliBPfELXfrW LqOwIoOEMrWCCrg5xgUJDq bGFuZzEwMzNcZnRuYmpcdW GhLOSmLcQtr0tle977vAJv k1ptIMLtYgJ4eNVzGSCovA nwrhg6oKgyNiYzVFCyl7lh cyBcZmNoYXJzZXQwIEFyaW ZxL234CHKjUVvol1uti3Sy FUPvjNTym9U2IYBNNCqkHk JzC780r4zpd6pnsgZbuWI4 RBQqYQV7XEjubgBtmhD0ON bcsCDaByI9FQgcepHgRXnn emJxtlGvUob2XAJoO508MI G3pRtzz5kwAZH3KNRlCYJv BzylSk3stNHmQ180UYZdHH UCBEQglBx0NJEetuTiimSj yUIEc778T570g8ogKEGhyk MklPdJhcery9efE548AAUd cGVydzEyMjQwXHBhcGVyaD H4WBFbVX4pfmpxPVmaNGbn QQWyilQ3ZQVjaYVeA4ScCC UvRL9egycqOSR3NHwlNSDk STO7KzHqWBBfx2Pgxno7Hp Vewh8xrw93GNM1z7XbgNly OQA1JXI7EiGzTi8xnRNxQE FjOZ5sOnLhgXZuSWQxgu41 vGqqXAdkkgZysG8oDwJsSO VpkKBdMHYxUS1tiNQuWYXk uG4viubsAFFoWbBxnkfrQL QduZmbinQzWy7bmJzwIGA7 SJtmY0nvpW8eKbT8ESdeR1 zuuF1hIXp3MKeewZC9MZTc nK5qVG0lkcsxi7qeIGohIB zdBNBriqT4cuJ1EYLyaUBb H9SrnJ6oXMUsEV0ewbdbs7 ygPQL5GXyfJHEpUID1HiYq BSOlr6Uzxky4GbOcj8BgjP TfBYbcM66ym784JUErksEp D8oexAVnlooquKIziizxEV aipaP5TXJrOZDiZYlkFTCg XGZzMjBcbGFuZzEwMzNcaG ljaFxmMVxkYmNoXGYxXGxv K2jeVnFgI0QrYNAfJjMhzD QnWWthdPC6LZAsRIMte80f bFj7CAHqdtjuw4LfUMRyrU JysAIkwD8htjHpv2hsUSRk OWCoUCOxD2FgRNY6sGZhCQ KjrNGkiDS9XL0cfgFbCH4k ZGUgYnkgcmVzaWRlbnRzLC TbHFugj9ujBT5nAQEpaWjv kA3fyDV9BPHrv2uqbUOtwY Afj6ger8VvqoAyRKfrRLDq YKogZEBjQJThZO8kTPYmoU QzkjLbi0T6DarbeZCjjrzg ScdzsvC0TIhbngooDNQuTC emA8kkOlAyEOAkoRucPkjc d2XyMQOyXELjHnzedLIqxA 0= Clinical Information Large bowel (test code = obstruction [K56.609] 0594375588) Gross Description (test v0lzoHFdKSZshWTtZoLdVY code = 7645650586) SaHTSfu4llAMXhtRYiArUm MzNcZnRuYmpcdWMxXGRlZm Str3yfx962aWZbx3mtUXCt NzD7lJOdGIDyiCWxI311UG RoKJpph9yrn3LiQVYqyXAu x5E0QHVLclrxwEp2nErsN9 8ip2E9PvroL6uiMPAlRYkt NSGrPLlkkKBoVTV0SJKhYT X8PKbjxmXnbzT0NGruaFAn LwL4GKg7q9zetIxbRWQrMR T1v0fiQNxydzIxEK4shy9v uGm2e3ffceWsPDTnDTBaaT LVAEUnL2WdiRvwEo5mmMb6 gRmyMgzxRSW3Ybv4JO4ebi 94fil1oIhfRUUtaydlQsE8 CGhbXUKnfqkcJNz5TJjuUX FvdMJnKICpjRSyZ9XqTBhe MS3nqjn2SnGiNQ7kczaqVW fbPJBhDAV4GiCgUVEph7Le qjytYhOygr7ytu87PLI6x2 PnbDlnEJE4LJU4QlBoLz0h sJHfNIRyGV4hAoCezLPzPJ Oijn73eBtzAYcmdbBriW9f PnKoRBVhhSSvWLIjYH3ozA YeZPLmbU6ijfbvCRMhHbXv lwccGMRroGmlylKxIu9jiY ioMAW0RGorV3nrgZ0sBoW8 MDjdR1dhvP1mDVn4MPyvuS V9BJWzhG5qXY4ahlgyr6wk ZCW5YIxbTTGxkzX5ulXvOR TavNLsS8EgfI59QuMwxNIc F1DxrQ9yISrzOJXupkm6Kh MpTb2esMNvwKQ1SQxpLcqi YWdlXHBnbmNvbnRccGduZG VjXHBsYWluXHBsYWluXGYw NKIxRuMvgLrpkYzgxP7fYj BcZnMyMFxwbGFpblxmMVxm czIwIFNwZWNpbWVuIEEgaX XixzQrRDi1VYTvVuHxl0oo zZUwFVdhWCJoe3w2mEL2kT XijTC0qUHfdZjkPK7imBIk ZHCFZP62aUHhwqOlH99dl7 9qZJKcwZDdIBCmZK5xjU9m mLNie3lcQ6DmjYgvMAGgzg OcD22fy4nxmAYdi7FyOOA1 b8MxbUUba7fxA7UghQmbv2 AeK7apUO8iIXbtUrYtS45o mL1aoYLyS3UjWAayXW4iTV FiZcDuU17nwD9qSJgioUJ4 RXHuAZyrzQvuRIV2GAPoOX QbiPWjoOabXEymcSaheY5z LGQxSAOhiRObegGuPH7pcQ kwuOX3FlKpD33nHMrcnPH8 DLEsAOJ5wNVvDO6fROyad3 NzbHkgaWRlbnRpZmlhYmxl ZUUkxTVxTIg7XeYPyLHhv2 Lhb0NfFUciIJWpbk4xENXz AO4fMNBmn917sVP1fFPuWF IitIY0NLKpbkYke9Miic0c VGhlIHNwZWNpbWVuIGlzIG 6jHA3kUHJlaL0cXhDtpFBp GP73rN9ap7FuaEKjqBOqPz 9yZGVyLiBUaGVyZSBpcyBh DWWabdK0eGDsifPbqJpcvG S1AKerLBrxNFiaOYAuY6Un GYSwj16hCPJiogY0hR05se PdsLLdOHZ5AMExHIVunCLa WxEjZ15hJjEgrNJ7jEQnWW acoJDgKH4jxyoimcOlfsFt PZVxR49xIbBlrCI1wGGgkQ BjzSzyMKvmmUZeD2cxKyBG hw98fM9oxBH8qwU8uMQwnV PazncdrVWczROsTP10mQ1i ZYGid0IdW7agWTlxp0Zxmy L1bPGjXe81VOaqlIMeLWme dGVuZGVkIGZvciBhIGxlbm q0sVZpWkUwNZ8yBGIeMtBK aGRfjK5wbCpxLMUje7Rdyr RgLYQtKKoif33dwLgxAT18 Y57kWLHadwOkq3CjyZi9XS TyIMU4NG9hNRdeJ4VtfeXf YXIsIHdpdGggYXJlYXMgb2 GqO67sBlhhw2DpskTkLGOl HOMoIP9nZUYdrpZwB7ebGv Aycc5tZEIxYL0sFd32WXFg XA8hFNlvOJtisYzvo7PkrV heNKGme6OhanBmPZGfIRdq k38bpGJbeJmlO2nqrxMlWY CcTZNbmEXzIPY7ZLntZK1i lS1lQQGya12vMP5lQCFoZj EtpHjjRNCfBLSkFK4ciV9d sjyvdJGdd8JdNK5fWTIuNH Lws6fgfrOxyuO2QH2gpOaz acAmybXcaHvvXJGcy4BwuU IjIJFctO4fTQNjAZXhjeQr zb0jh8n9BESbSACbYB0bSY OtqNmtOEcbRP0zWEJmtBTi rV6luGhfknO9xXHfRWRwfs BhbiBhZGRpdGlvbmFsIHdl nSgxhBDejUDmZQN3opvbR2 DhQGWsBEFpHTZyp3HgkTB4 tmF4aQDgqQwfv7VjE8VnBQ m2tsL9mW6oXFJpQDUjDQdo YGXgiT7fu1aggAVeiKyeb8 VbX8DeBRKpuSHqXJypkVjj KO4mUAO7EBUmYUZbh8IcrX CjdPSnOfVkzpMma6EwbyYt YEEjRFLiaFQambMwFM5ihL biTsqeQK41OGHvXUraVQVu IF1liKTkMLZ0rGVaJKJqq2 OspBHzLPMtLFWru1NmiAuh IGxpbmUgYXQgdGhlIGJsaW 3tAAZyCTzqu9Vzsc97xqKp AGCudHRplUSfX9hkSYTaXO uvs7OiXZGra2U9YJ6lEPgz IHJlbWFpbmluZyBtdWNvc2 Upl1IimFfzPSgrYXDaZBwd BPLwYvD5u5NwbUQcuQXmxI BhbmQgdGhlIHZpYWJpbGl0 fKBrZuD3sUDfxcNvHGJ8eK 2eCY7abzkbeuCuHB0oy4Kh RoHuK8Rss0LuwVQoFXOqvd 1pbmVkLiBUaGUgcGVyaWNv hS0qdFSoBXSwmT8hVBE4xB GjvSNpoOOikZLsiLX7LIDp Rj4eUUHvzT3ly7lyzXNslL yqbJxvyy6hKWMtYZDemlva aiaqJrBawACjUlYiEY74TS VeBOvzRTagXGF6LMD5TIVu kDVkt9xszzuoVNPsgGLmx1 GfgOJ7hROoRJCaE2Fnv73k IXCfCRAijVGehUG0QLBmqF 4gQTEtQTEwLlxwYXJccGFy WJMpH9Jpr77rE85nNNuuzW BmDIPuGuSGdk41sO0taRZx BYRnD1Evp00piPFvK1hnTF BlbiBmYWNlLCByZXByZXNl rrAalCm7ZZrbDKSxGGV7IV Yfd4NimUCtWGXhK6Uip80i wQZaF4xsWSSzdaNdHCBbDB VfOAIxMOOhqtZibGt1OUsw CYSqDUO9ZAttMC5nWUUzrN PnyC9hwLrzozZ7uSPjNGS4 iuokQ3KuXVZoNJYsHHGrhS Qcu3DvjSO5uQPfNFUmcqGL IEvwUsSecjPoHS96STCeoa Dpz4ZoaOgxcxAis5ZqcHYg u5TjFYTxVCT6SBtuAWDwr7 hpbWFsIHRvIHRoZSBkaXN0 YD9lTKSiEAKcECjoVJNaJP LmUNQ8EVLxpUXlo6WpxGV1 nSJvALQsB4Ihg72hWG3hSE 48P67dPFZjpjAmm5HfqEBj zv8fAMTjQFPhkWT9XR2aGL NiGWCnEPfoXMIpJIb3UGNw HMQcg1HfPUY7xzzhN8RcQU NjYXIgZGlzdGFsIHRvIGRp u9ZvksBgCDFonhEjLDZoYH ArLTTdniPbgVd0UAshZJYp ONd9URGgeMJxx9UhlTD3iX SfTJKuT0Bkd13uWY4sFC61 E25pKBCpwxQll0QizLVevS N6RUgdfK1dzQkbVOCbj8Rw bmRlZCBhcmVhXHBhciBBOT urPK7it6jfmYOvyLhib6Hk X2VbXEPecQZfXHWdWESvJR JjpgTyqLj8NUnaYYBjCUPj DdUBgw0bqyFlYEC3kH6gRT 9mIGludGVzdGluZSBhdHRh L5chCWA7ioVei3DooJHjTL YmaJNdQ5NwCUtykcVghmLm EEMjpUJoq3BqtKC2cZIiTY OgtjHITOU8IFErwU6yu5dg sPZojLqgrIiqzf5lPLIfYM yxk0rjPXomCDWwxZSoSDCc xmRugDxtmW4tBzFuSpPsGG xwbGFpblxmMVxmczIwIFNw ZWNpbWVuIEIgaXMgcmVjZW j1LKUhEgJys1ybzDTgWTkp TLC4bGWsQTWrRWRhDQNwMB 01G4YwafMcTPlaPUttppMf AcJkOYTty5vgvgggOB9inJ HaJOtkLJizNjafKY1gOXZk tgDmk2OcVY8iQTEiFZ5tx1 TzwI2nnC6vVTOoofS6qnUs QY59DOsrFD66NVxnUW00NL NtIGFuZCAyLjUgeCAxLjkg kSAqBwxlZ67rHvVEj7AbMV WhwtD6nyIkwyToGvubHIM0 GGNdFUCqEDRfwEOkfQ9anb KhenXgaQBzbLR0SNGgJV54 yDLayPtiCS6hYfQfNVTiev XHNW2QMbmleCFcP5QwDABq iuS6MNzwKNMaQCCwQGNpPH BzbWFsbGVyIGRvdWdobnV0 IGluIEIzLiBccGFyXHBhci XSKDL8AGPiauIluGpnKGYU CQTtFBZkV9L3JYFqtRcyTE CuCBF9qdTjNXVxT7DiRVCH ENFCH9WjIOCzSIncGRIjIT ZzMTZcbGFuZzEwMzNcaGlj aFxmMVxkYmNoXGYxXGxvY2 syHmHnS5BbHBJaJZNtD48h jGkmgA7iRwBwEoTrLNvvHU WepYojaByzqH1kKxYpWmUg MFxwbGFpblxmMVxmczIwXH Bhcn0= Embedded Images (test code = 1359092511) [facility] America[facility]ubation2020-08-14 16:04:Ana Ahn MD ? ? 04/06/2020 11:06 AMIntubationUrgency: emergent Difficult airway General Information and Staff Patient location during procedure: ORAnesthesiologist: Cynthia Herring, MDResident/DIRT BIKE RACER: Dana Sampson DOPerformed: anesthesiologist and resident/DIRT BIKE RACER Indications and Patient ConditionIndications for airway management: [...] from glidescope to advance tube into airway. [facility] AmericaIntubation2020-08-14 16:04:Ana Ahn MD ? ? 04/08/2020 ?5:11 AMIntubationUrgency: emergent Difficult airway General Information and Staff Patient location during procedure: ORAnesthesiologist: Cynthia Herring MDResident/DIRT BIKE RACER: Dana Sampson DOPerformed: anesthesiologist and resident/DIRT BIKE RACER Indications and Patient ConditionIndications for airway management: [...] glidescope to advance tube into airway. Additional DilhsrnlN8g on VL by CA1, multiple attempts by CA1 with ETT with stylet and bougie, unable to pass ETT through glottis. BVM between attempts. Glidescope stylet with ETT used by faculty under VL, attempt x 1 by faculty, g1v, atraumatic.[facility] AmericaXR [id number] 15:42:20 Large volume pneumoperitoneum. Continued gaseous distention and dilatation of the stomach and smallbowelfollowing total colectomy with ileoanal anastomosis may representpostoperative ileus. Findings regarding pneumoperitoneum were already communicated to [facility]. Preliminary Report Dictated by Resident: Bart De [...] small bowel and issimilar to prior radiographs. [place] project over the midline in the lowerabdomen. [facility], Radiant Results Inft User - [...] small bowel and issimilar to prior radiographs. [place] project over the midline in the lowerabdomen.IMPRESSIONLarge volume pneumoperitoneum.Continued gaseous distention and dilatation of the stomach and small bowelfollowing total colectomy with ileoanal anastomosis may representpostoperative ileus.Findings [facility]Preliminary Report Dictated by Resident: Bart Klein reviewed this study and agree.I, Weston Wu MD., have reviewed this study andagree with theabove report. [facility] AmericaType and Screen - ONCE [id number] 15:18:48 Test Item Value Reference Range Interpretation Comments ABO & RH (test code O POSITIVE Performe d at [facility] = 20) [facility] Blood Bank[facility] s [id number] Free: [phone] A No. [id number] IAT (test code = Negative Performed a t [facility] 1185) [facility] Blood Bank3 [address] [facility] s [id number] Free: [phone] A No. [id number] [facility] AmericaXR CHEST 1 [id number] 15:09:51 1. ?Interval development of a large [...] the midline and inferiorly beyondthe diaphragm and vnxac-wv-otid. Left diaphragm is elevated with interval development of large amount offree air noted under the diaphragms, better seen on concomitant abdominalx-ray. Lungs are clear without focal consolidation, pleural effusion orpneumothorax. The cardiomediastinal silhouette is stable. ?No acute osseousabnormalities. 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 Left diaphragm is elevated with interval development [...] have reviewed this study and agree with theabovereport.[facility] [id number] 14:52:Ana Schulz MD ? ? 04/06/2020 ?9:53 [...] tolerated procedure well with no complications ? [facility] [id number] 14:52:Ana Schulz MD ? ? 04/06/2020 ?9:53 [...] tolerated procedure well with no complications ? [facility] [id number] 14:51:44Ana Syed MD ? ? 04/06/2020 ?9:52 [...] complications and all wires accounted for _ [facility] AmericaArterial [id number] 14:51:44Ana Syed MD ? ? 04/06/2020 ?9:52 [...] complications and all wires accounted for _ [facility] AmericaCBC WITH [id number] 13:22:00 Test Item Value Reference Range Interpretation Comments WBC (test code = See_Comment LL [Automated 9890-2) message] The system which generated [...] RDW-SD (test code = 47.8 fL 38.5-51.6 63994-8) RDW-CV (test code = 14.6 % 12.1-15.4 788-0) PLT (test code = See_Comment [Automated 777-3) message] The system which generated this result transmitted reference range : 150 - 328 10*3/?L. The reference range was not used to interpret this result as normal/abnormal . MPV (test code = 12.1 fL 9.8-13 81451-3) NRBC/100 WBC (test See_Comment [Automat ed code = 1926541949) message] The system which generated this result transmitted reference range : 0.0 - 10.0 /100 WBCs. The reference range was not used to interpret this result as normal/abnormal . NRBC x10^3 (test code <0.01 See_Comment [Auto mated = 7460214557) message] The system which generated this result transmitted reference range : 10*3/?L. The reference range was not used to interpret this result as normal/abnormal . GRAN MAT (NEUT) % 71.6 % (test code = 770-8) IMM GRAN % (test code 0.90 % = 4429265813) LYMPH % (test code = 18.3 % 736-9) MONO % (test code = 9.2 % 5905-5) EOS % (test code = 0.0 % 713-8) BASO % (test code = 0.0 % 706-2) GRAN MAT x10^3(ANC) 0.78 10*3/uL 1.99-6.95 L (test code = 4973678206) IMM GRAN x10^3 (test <0.03 0-0.06 code = 3831274333) LYMPH x10^3 (test 0.20 10*3/uL 1.09-3.23 L code = 731-0) MONO x10^3 (test code 0.10 10*3/uL 0.36-1.02 L = 742-7) EOS x10^3 (test code <0.03 0.06-0.53 L = 711-2) BASO x10^3 (test code <0.03 0.01-0.09 = 704-7) GOLDEN CELLS (test code 2+ See_Comment A [Auto mated = 8861-5) message] The system which generated this result transmitted reference range : (none). The reference range was not used to interpret this result as normal/abnormal . BANDS (test code = MARKED INCREASED A 1895809568) Lab Interpretation Abnormal (test code = 82643-6) [facility] METABOLIC PANEL (NA, K, CL, CO2, GLUCOSE, BUN, CREATININE, CA)2020-04-06 12:38:00 Test Item Value Reference Range Interpretation Comments NA (test code = 134 mmol/L 135-145 L 0828591719) K (test code = 4.5 mmol/L 3.5-5 3551993555) CL (test code = 105 mmol/L 98-108 8779883393) CO2 TOTAL (test code = 18 mmol/L 23-31 L 6900807992) AGAP (test code = 2-16 8767832825) BUN (test code = 30 mg/dL 7-23 H 2091415674) GLUCOSE (test code = 117 mg/dL 70-110 H 2048890796) CREATININE (test code = 1.95 mg/dL 0.6-1.25 H 3042963694) CALCIUM (test code = 8.6 mg/dL 8.6-10.6 8475836363) eGFR Calculation mL/min/1.73m2 (Non-) (test code = 1650154037) eGFR Calculation mL/min/1.73m2 () (test code = 9685107588) GILBERTO (test code = GILBERTO) Association of [...] tests). Lab Interpretation Abnormal (test code = 85227-4) [facility] AmericaMAG[facility]IUM2020-08-14 12:38:00 Test Item Value Reference Range Interpretation Comments MAGNESIUM (test code = 7480164427) 2.3 mg/dL 1.7-2.4 Lab Interpretation (test code = Normal 75327-2) [facility]XR [id number] 23:28:32 Prominent gaseous distention of small bowel [...] pelvis. Note: Left hemidiaphragm isnot fully within ebzae-kq-yfuv. FINDINGS: Status post colectomy. Massive gaseous distention [...] and pelvis.Note: Left hemidiaphragm isnot fully within dfyoi-bu-fiyl.FINDINGS:Status post colectomy.Massive gaseous distention of the stomach [...] this study and agree with theabove report. [facility] AmericaXR [id number] 23:22:45 Esophogastric tube tip projects over the stomach fundus. Redemonstration of extensive small bowel dilatation in the recentpostoperative setting status post total colectomy with ileoanalanastomosis. Findings may represent severe ileus. Correlate clinically. Preliminary Report Dictated by Resident: Louis Donnelly MD., have reviewed this study and agree with theabove report.EXAM: XRKUB HISTORY: post ngt placement COMPARISON: [facility] 04/05/2020 Technique: Single AP view of the upper abdomen. Note: Bilateralhemidiaphragms and upper abdomen are not within ibouu-bl-uxji. FINDINGS: The tipof the esophogastric tube projects over the expected position ofstomach fundus with the side-port projecting over the proximal stomach. Significant distention of small bowel and stomach minimally improved fromreference exam from 04/22/2020 at 14:49. No evidence of pneumoperitoneumwithin limits of supine exam. Surgical carmenza project over the midline andbilateral mid to lower abdomen. [facility], Radiant Results Inft User - 04/05/2020 6:23 PM CDTEXAM: XR KUBHISTORY: post ngt placement COMPARISON: [facility] 04/05/2020Technique: Single AP view of the upper abdomen. Note: Bilateralhemidiaphragms and upper abdomen are not within ulivn-so-psyq.FINDINGS:The tip of the esophogastric tube projects over [...] reviewed this study and agree with theabove report.[facility] (NA, K, CL, CO2, GLUCOSE, BUN, CREATININE, CA)2020-04-05 11:08:00 Test Item Value Reference Range Interpretation Comments NA (test code = 137 mmol/L 135-145 7997675122) K (test code = 4.4 mmol/L 3.5-5 1936551713) CL (test code = 104 mmol/L 98-108 3573105538) CO2 TOTAL (test code = 24 mmol/L 23-31 4830780589) AGAP (test code = 2-16 6232829525) BUN (test code = 10 mg/dL 7-23 9602628370) GLUCOSE (test code = 104 mg/dL 70-110 3280908897) CREATININE (test code 1.18 mg/dL 0.6-1.25 = 1854935700) CALCIUM (test code = 8.7 mg/dL 8.6-10.6 2699527070) eGFR Calculation mL/min/1.73m2 (Non-) (test code = 2431265024) eGFR Calculation mL/min/1.73m2 () (test code = 7535759529) GILBERTO (test code = GILBERTO) Association of [...] or urine or abnormalities in imaging tests). [facility]2020-08-13 11:08:00 Test Item Value Reference Range Interpretation Comments MAGNESIUM (test code = 1594258557) 2.3 mg/dL 1.7-2.4 Lab Interpretation (test code = Normal 04353-9) [facility] WITH [id number] 10:32:00 Test Item Value Reference Range Interpretation [...] RDW-SD (test code = 47.8 fL 38.5-51.6 76061-9) RDW-CV (test code = 14.6 % 12.1-15.4 788-0) PLT (test code = See_Comment [Automated 777-3) message] The sy stem which generated this result transmitted reference range : 150 - 328 10*3/ ?L. The reference r meredith was not used to interpret this result as normal/abnormal . MPV (test code = 11.6 fL 9.8-13 17496-3) NRBC/100 WBC (test See_Comment [Automat ed code = 0205866861) message] The system which generated this result transmitted reference range : 0.0 - 10.0 /100 WBCs. The refer ence range was not u sed to interpret th is result as normal/abnormal . NRBC x10^3 (test code <0.01 See_Comment [Auto mated = 0654785754) message] The s ystem which generated this result transmitted reference range : 10*3/?L. The reference range was not used to interpret this result as normal/abnormal . GRAN MAT (NEUT) % 82.4 % (test code = 770-8) IMM GRAN % (test code 0.30 % = 2561492492) LYMPH % (test code = 12.4 % 736-9) MONO % (test code = 4.5 % 5905-5) EOS % (test code = 0.2 % 713-8) BASO % (test code = 0.2 % 706-2) GRAN MAT x10^3(ANC) 5.12 10*3/uL 1.99-6.95 (test code = 1793765560) IMM GRAN x10^3 (test <0.03 0-0.06 code = 4243307904) LYMPH x10^3 (test code 0.77 10*3/uL 1.09-3.23 L = 731-0) MONO x10^3 (test code 0.28 10*3/uL 0.36-1.02 L = 742-7) EOS x10^3 (test code = <0.03 0.06-0.53 L 711-2) BASO x10^3 (test code <0.03 0.01-0.09 = 704-7) Lab Interpretation Abnormal (test code = 34711-2) [facility] METABOLIC PANEL (NA, K, CL, CO2, GLUCOSE, BUN, CREATININE, CA)2020-04-04 11:02:00 Test Item Value Reference Range Interpretation Comments NA (test code = 135 mmol/L 135-145 0649052809) K (test code = 4.4 mmol/L 3.5-5 Slight 2468567653) hemolysis CL (test code = 103 mmol/L 98-108 8023094201) CO2 TOTAL (test code 26 mmol/L 23-31 = 6185058393) AGAP (test code = 2-16 8034497767) BUN (test code = 7 mg/dL 7-23 Slight 9158708037) hemolysis GLUCOSE (test code = 119 mg/dL 70-110 H 8025811703) CREATININE (test code 0.95 mg/dL 0.6-1.25 = 9663556646) CALCIUM (test code = 8.3 mg/dL 8.6-10.6 L 1895668557) eGFR Calculation mL/min/1.73m2 (Non-) (test code = 1675230410) eGFR Calculation mL/min/1.73m2 () (test code = 0808548313) GILBERTO (test code = GILBERTO) Association of [...] tests). Lab Interpretation Abnormal (test code = 20742-3) [facility]2020-08-12 11:02:00 Test Item Value Reference Range Interpretation Comments MAGNESIUM (test code = 3864958101) 1.7 mg/dL 1.7-2.4 Lab Interpretation (test code = Normal 07691-8) [facility] WITH [id number] 10:31:00 Test Item Value Reference Range Interpretation [...] RDW-SD (test code = 46.5 fL 38.5-51.6 19377-4) RDW-CV (test code = 14.3 % 12.1-15.4 788-0) PLT (test code = See_Comment L [Automated 777-3) message] The sy stem which generated this result transmitted reference range : 150 - 328 10*3/ ?L. The reference r meredith was not used to interpret this result as normal/abnormal . MPV (test code = 11.2 fL 9.8-13 82722-4) NRBC/100 WBC (test See_Comment [Automat ed code = 8402744037) message] The system which generated this result transmitted reference range : 0.0 - 10.0 /100 WBCs. The refer ence range was not u sed to interpret th is result as normal/abnormal . NRBC x10^3 (test code <0.01 See_Comment [Auto mated = 4405696515) message] The s ystem which generated this result transmitted reference range : 10*3/?L. The reference range was not used to interpret this result as normal/abnormal . GRAN MAT (NEUT) % 76.7 % (test code = 770-8) IMM GRAN % (test code 0.30 % = 6342077692) LYMPH % (test code = 16.4 % 736-9) MONO % (test code = 6.2 % 5905-5) EOS % (test code = 0.2 % 713-8) BASO % (test code = 0.2 % 706-2) GRAN MAT x10^3(ANC) 5.12 10*3/uL 1.99-6.95 (test code = 1058664912) IMM GRAN x10^3 (test <0.03 0-0.06 code = 0658101836) LYMPH x10^3 (test code 1.09 10*3/uL 1.09-3.23 = 731-0) MONO x10^3 (test code 0.41 10*3/uL 0.36-1.02 = 742-7) EOS x10^3 (test code = <0.03 0.06-0.53 L 711-2) BASO x10^3 (test code <0.03 0.01-0.09 = 704-7) Lab Interpretation Abnormal (test code = 38354-3) [facility] WITH [id number] 11:04:00 Test Item Value Reference Range Interpretation [...] RDW-SD (test code = 45.6 fL 38.5-51.6 68571-8) RDW-CV (test code = 14.0 % 12.1-15.4 788-0) PLT (test code = See_Comment L [Automated 777-3) message] The sy stem which generated this result transmitted reference range : 150 - 328 10*3/ ?L. The reference r meredith was not used to interpret this result as normal/abnormal . MPV (test code = 11.2 fL 9.8-13 77313-3) NRBC/100 WBC (test See_Comment [Automat ed code = 5525082294) message] The system which generated this result transmitted reference range : 0.0 - 10.0 /100 WBCs. The refer ence range was not u sed to interpret th is result as normal/abnormal . NRBC x10^3 (test code <0.01 See_Comment [Auto mated = 8482316079) message] The s ystem which generated this result transmitted reference range : 10*3/?L. The reference range was not used to interpret this result as normal/abnormal . GRAN MAT (NEUT) % 52.7 % (test code = 770-8) IMM GRAN % (test code 0.30 % = 5771972519) LYMPH % (test code = 34.6 % 736-9) MONO % (test code = 9.6 % 5905-5) EOS % (test code = 2.2 % 713-8) BASO % (test code = 0.6 % 706-2) GRAN MAT x10^3(ANC) 1.88 10*3/uL 1.99-6.95 L (test code = 7631416928) IMM GRAN x10^3 (test <0.03 0-0.06 code = 5122851375) LYMPH x10^3 (test code 1.23 10*3/uL 1.09-3.23 = 731-0) MONO x10^3 (test code 0.34 10*3/uL 0.36-1.02 L = 742-7) EOS x10^3 (test code = 0.08 10*3/uL 0.06-0.53 711-2) BASO x10^3 (test code <0.03 0.01-0.09 = 704-7) REACT LYMPHS (test Rare code = 6368294645) Lab Interpretation Abnormal (test code = 03833-0) [facility] METABOLIC PANEL (NA, K, CL, CO2, GLUCOSE, BUN, CREATININE, CA)2020-04-03 10:54:00 Test Item Value Reference Range Interpretation Comments NA (test code = 140 mmol/L 135-145 9308840587) K (test code = 3.9 mmol/L 3.5-5 4612344049) CL (test code = 107 mmol/L 98-108 8678931087) CO2 TOTAL (test code = 28 mmol/L 23-31 2757820609) AGAP (test code = 2-16 2627757264) BUN (test code = 4 mg/dL 7-23 L 9881813786) GLUCOSE (test code = 88 mg/dL 70-110 3725415369) CREATININE (test code = 0.96 mg/dL 0.6-1.25 5908835908) CALCIUM (test code = 8.6 mg/dL 8.6-10.6 3516993574) eGFR Calculation mL/min/1.73m2 (Non-) (test code = 7948094934) eGFR Calculation mL/min/1.73m2 () (test code = 7855577046) GILBERTO (test code = GILBERTO) Association of [...] tests). Lab Interpretation Abnormal (test code = 46747-8) [facility]2020-08-11 10:54:00 Test Item Value Reference Range Interpretation Comments MAGNESIUM (test code = 5825051514) 2.0 mg/dL 1.7-2.4 Lab Interpretation (test code = Normal 82590-0) [facility] America[facility] and Screen - ONCE [id number] 23:40:25 Test Item Value Reference Range Interpretation Comments ABO & RH (test code O POSITIVE Performe d at [facility] = 20) Laboratory [facility] Blood [facility] s [address]Uchz Free: [phone] A No. [id number] IAT (test code = Negative Performed a t [facility] 1185) [facility] Blood [facility] s [address]Wmfs Free: [phone] A No. [id number] [facility] WITH [id number] 11:21:00 Test Item Value Reference Range Interpretation [...] RDW-SD (test code = 45.8 fL 38.5-51.6 01801-4) RDW-CV (test code = 14.2 % 12.1-15.4 788-0) PLT (test code = See_Comment L [Automated 777-3) message] The sy stem which generated this result transmitted reference range : 150 - 328 10*3/ ?L. The reference r meredith was not used to interpret this result as normal/abnormal . MPV (test code = 10.6 fL 9.8-13 17879-2) NRBC/100 WBC (test See_Comment [Automat ed code = 7003380650) message] The system which generated this result transmitted reference range : 0.0 - 10.0 /100 WBCs. The refer ence range was not u sed to interpret th is result as normal/abnormal . NRBC x10^3 (test code <0.01 See_Comment [Auto mated = 1085853849) message] The s ystem which generated this result transmitted reference range : 10*3/?L. The reference range was not used to interpret this result as normal/abnormal . GRAN MAT (NEUT) % 46.4 % (test code = 770-8) IMM GRAN % (test code 0.30 % = 0870813629) LYMPH % (test code = 38.8 % 736-9) MONO % (test code = 10.5 % 5905-5) EOS % (test code = 3.3 % 713-8) BASO % (test code = 0.7 % 706-2) GRAN MAT x10^3(ANC) 1.41 10*3/uL 1.99-6.95 L (test code = 3421552375) IMM GRAN x10^3 (test <0.03 0-0.06 code = 1284560015) LYMPH x10^3 (test code 1.18 10*3/uL 1.09-3.23 = 731-0) MONO x10^3 (test code 0.32 10*3/uL 0.36-1.02 L = 742-7) EOS x10^3 (test code = 0.10 10*3/uL 0.06-0.53 711-2) BASO x10^3 (test code <0.03 0.01-0.09 = 704-7) HYPERSEG NEUTS (test Present See_Comment A [Autom ated code = 765-8) message] The [employer] which generated this result transmitted reference range : (none). The reference range was not used to interpret this result as normal/abnormal . Lab Interpretation Abnormal (test code = 26458-0) [facility] METABOLIC PANEL (NA, K, CL, CO2, GLUCOSE, BUN, CREATININE, CA)2020-04-02 11:05:00 Test Item Value Reference Range Interpretation Comments NA (test code = 139 mmol/L 135-145 6902449472) K (test code = 4.0 mmol/L 3.5-5 8349516933) CL (test code = 108 mmol/L 98-108 0529488679) CO2 TOTAL (test code = 25 mmol/L 23-31 6449552174) AGAP (test code = 2-16 5026417211) BUN (test code = 6 mg/dL 7-23 L 2028510213) GLUCOSE (test code = 99 mg/dL 70-110 9927321233) CREATININE (test code = 0.92 mg/dL 0.6-1.25 7203585158) CALCIUM (test code = 8.3 mg/dL 8.6-10.6 L 8547039206) eGFR Calculation mL/min/1.73m2 (Non-) (test code = 6027631871) eGFR Calculation mL/min/1.73m2 () (test code = 1699294019) GILBERTO (test code = GILBERTO) Association of [...] tests). Lab Interpretation Abnormal (test code = 10073-3) [facility]2020-08-10 11:05:00 Test Item Value Reference Range Interpretation Comments MAGNESIUM (test code = 3302411820) 2.0 mg/dL 1.7-2.4 Lab Interpretation (test code = Normal 28214-4) [facility] (ID NOW RAPID TESTING)2020-04-02 00:43:00 Test Item Value Reference Range Interpretation Comments SARS-CoV-2 Rapid ID NOW Not Detected Not Detected (test code = 24016-0) GILBERTO (test code = GILBERTO) ID NOW COVID-19 Assay is an isothermal nucleic acid amplification test intended for the qualitative detection of nucleic acid from SARS-CoV-2 viral RNA in nasopharyngeal ([employer]) specimens. It is used under Emergency Use [...] indicated. Lab Interpretation Normal (test code = 94954-6) [facility]2020-08-08 11:39:00 Test Item Value Reference Range Interpretation Comments APPEARANCE (test code = Hazy Clear A 5068722703) COLOR (test code = Yellow Yellow 7706187767) PH (test code = 4.8-8.0 0903279859) SP GRAVITY (test code = 1.003-1.030 H 0971021538) GLU U QUAL (test code = Normal Normal 2058732151) BLOOD (test code = Negative Negative 9493376265) KETONES (test code = 5 mg/dL Negative A 2420591529) PROTEIN (test code = Negative Negative 2887-8) UROBILIN (test code = 2.0 mg/dL Normal A 3412043953) BILIRUBIN (test code = Negative Negative 0802490018) NITRITE (test code = Negative Negative 3880036721) LEUK ROGER (test code = Negative Negative 5127986567) RBC/HPF (test code = See_Comment [Autom ated message] 2245656774) The system niiu generated this result transmit dain reference range : 0 - 3 HPF. The refe rence range was not u sed to interpret th is result as normal/abnormal . WBC/HPF (test code = See_Comment [Autom ated message] [id number]) The system niiu generated this result transmit dain reference range : 0 - 5 HPF. The refe rence range was not u sed to interpret th is result as normal/abnormal . BACTERIA (test code = Negative Negative 8263335806) CA OXALATE (test code = See_Comment H [Au tomated message] 5270522003) The system niiu generated this result transmit dain reference range : <=1 HPF. The refere nce range was not u sed to interpret th is result as normal/abnormal . Lab Interpretation (test Abnormal code = 00711-4) [facility] AmericaCT ABDOMEN PELVIS W [id number] 00:38:37 1. ?Massive air distention of the [...] focal loculated drainable fluidcollection.RL: 460END [facility] REPORT [facility] (NA, K, CL, CO2, GLUCOSE, BUN, CREATININE, CA)2020-03-30 23:45:00 Test Item Value Reference Range Interpretation Comments NA (test code = 140 mmol/L 135-145 5601944077) K (test code = 4.3 mmol/L 3.5-5 3763296538) CL (test code = 101 mmol/L 98-108 6105648235) CO2 TOTAL (test code = 28 mmol/L 23-31 2847868434) AGAP (test code = 2-16 5944177453) BUN (test code = 24 mg/dL 7-23 H 1373103369) GLUCOSE (test code = 90 mg/dL 70-110 3983949272) CREATININE (test code = 1.29 mg/dL 0.6-1.25 H 2440016194) CALCIUM (test code = 9.4 mg/dL 8.6-10.6 4549057163) eGFR Calculation mL/min/1.73m2 (Non-) (test code = 8654244323) eGFR Calculation mL/min/1.73m2 () (test code = 8746719868) GILBERTO (test code = GILBERTO) Association of [...] tests). Lab Interpretation Abnormal (test code = 34066-2) [facility] 1 [id number] 23:00:46 No evidence for an acute cardiopulmonary [...] on the March 02, 2020 exam.RL: [id number] [facility] [id number] 22:39:00 Test Item Value Reference Range Interpretation Comments TROPONIN I (test 0.008 ng/mL See_Comment [Automated code = 3015961316) message] The system which generated this result [...] ? Lab Interpretation Normal (test code = 98878-8) [facility] AmericaN-TERMINAL [id number] 22:39:00 Test Item Value Reference Range Interpretation Comments NT-proBNP (test code 42 pg/mL See_Comment [Autom ated = 3773411740) message] The system which generated this result transmitted reference range : <=125. The reference range was not used to interpret this result as normal/abnormal . GILBERTO (test code = GILBERTO) Biotin has been reported to cause a negative bias, interpret results relative to patient's use of biotin. Lab Interpretation Normal (test code = 10518-2) [facility] AmericaHepatic Function Panel (ALB, T.PRO, BILI T, BU/BC, ALT, AST, ALK PHOS)2020-03-30 22:27:00 Test Item Value Reference Range Interpretation Comments TOTAL BILI (test code = 3742178707) 0.5 mg/dL 0.1-1.1 BILI UNCON (test code = 2127683357) 0.3 mg/dL 0.1-1.1 BILI CONJ (test code = 2670531186) 0.0 mg/dL 0-0.3 T PROTEIN (test code = 6028824022) 6.7 g/dL 6.3-8.2 ALBUMIN (test code = 8283295071) 4.5 g/dL 3.5-5 ALK PHOS (test code = 7884541742) 57 U/L 34-122 ALTv (test code = 1742-6) 31 U/L 5-50 AST(SGOT) (test code = 7234858036) 38 U/L 13-40 Lab Interpretation (test code = Normal 47604-4) [facility] AmericaLipase [id number] 22:27:00 Test Item Value Reference Range Interpretation Comments LIPASE (test code = 8496842961) 62 U/L 0-220 Lab Interpretation (test code = Normal 40082-3) [facility] AmericaaPTT2020-08-07 22:25:00 Test Item Value Reference Range Interpretation Comments APTT Patient (test code = See_Comment [ Automated message] 3173-2) The system whic h generated this result transmitted ref erence range: 26 - 36 Seconds. The re ference range was not u sed to interpret this result as normal/abnor mal. Lab Interpretation (test Normal code = 83514-0) [facility] AmericaProthrombin Time (PT) / [id number] 22:25:00 Test Item Value Reference Range Interpretation [...] tions. Lab Interpretation (test Normal code = 17489-8) [facility] AmericaCBC with [id number] 22:17:00 Test Item Value Reference Range Interpretation Comments WBC (test code = See_Comment [Automated 0890-2) message] The sy stem which generated this result transmitted reference range : 4.20 - 10.70 10*3/?L. The reference range was not used to interpret this result as normal/abnormal . RBC (test code = See_Comment L [Automated 327-8) message] The sy stem which generated this [...] RDW-SD (test code = 46.9 fL 38.5-51.6 69837-1) RDW-CV (test code = 14.3 % 12.1-15.4 788-0) PLT (test code = See_Comment [Automated 777-3) message] The sy stem which generated this result transmitted reference range : 150 - 328 10*3/ ?L. The reference r meredith was not used to interpret this result as normal/abnormal . MPV (test code = 10.7 fL 9.8-13 87651-9) NRBC/100 WBC (test See_Comment [Automat ed code = 0352062624) message] The system which generated this result transmitted reference range : 0.0 - 10.0 /100 WBCs. The refer ence range was not u sed to interpret th is result as normal/abnormal . NRBC x10^3 (test code <0.01 See_Comment [Auto mated = 8973112328) message] The s ystem which generated this result transmitted reference range : 10*3/?L. The reference range was not used to interpret this result as normal/abnormal . GRAN MAT (NEUT) % 51.7 % (test code = 770-8) IMM GRAN % (test code 0.40 % = 4959495653) LYMPH % (test code = 32.8 % 736-9) MONO % (test code = 12.4 % 5905-5) EOS % (test code = 2.1 % 713-8) BASO % (test code = 0.6 % 706-2) GRAN MAT x10^3(ANC) 2.76 10*3/uL 1.99-6.95 (test code = 8533166492) IMM GRAN x10^3 (test <0.03 0-0.06 code = 2293450121) LYMPH x10^3 (test code 1.75 10*3/uL 1.09-3.23 = 731-0) MONO x10^3 (test code 0.66 10*3/uL 0.36-1.02 = 742-7) EOS x10^3 (test code = 0.11 10*3/uL 0.06-0.53 711-2) BASO x10^3 (test code 0.03 10*3/uL 0.01-0.09 = 704-7) Lab Interpretation Abnormal (test code = 09763-7) [facility] with [id number] 10:26:00 Test Item Value Reference Range Interpretation [...] RDW-SD (test code = 46.3 fL 38.5-51.6 41732-4) RDW-CV (test code = 14.2 % 12.1-15.4 788-0) PLT (test code = See_Comment L [Automated 777-3) message] The sy stem which generated this result transmitted reference range : 150 - 328 10*3/ ?L. The reference r meredith was not used to interpret this result as normal/abnormal . MPV (test code = 10.6 fL 9.8-13 38273-7) NRBC/100 WBC (test See_Comment [Automat ed code = 6699657262) message] The system which generated this result transmitted reference range : 0.0 - 10.0 /100 WBCs. The refer ence range was not u sed to interpret th is result as normal/abnormal . NRBC x10^3 (test code <0.01 See_Comment [Auto mated = 0374336989) message] The s ystem which generated this result transmitted reference range : 10*3/?L. The reference range was not used to interpret this result as normal/abnormal . GRAN MAT (NEUT) % 51.3 % (test code = 770-8) IMM GRAN % (test code 0.30 % = 3446634226) LYMPH % (test code = 32.2 % 736-9) MONO % (test code = 12.7 % 5905-5) EOS % (test code = 3.0 % 713-8) BASO % (test code = 0.5 % 706-2) GRAN MAT x10^3(ANC) 1.89 10*3/uL 1.99-6.95 L (test code = 9489644139) IMM GRAN x10^3 (test <0.03 0-0.06 code = 5566628951) LYMPH x10^3 (test code 1.19 10*3/uL 1.09-3.23 = 731-0) MONO x10^3 (test code 0.47 10*3/uL 0.36-1.02 = 742-7) EOS x10^3 (test code = 0.11 10*3/uL 0.06-0.53 711-2) BASO x10^3 (test code <0.03 0.01-0.09 = 704-7) Lab Interpretation Abnormal (test code = 17498-0) [facility] AmericaMagnesium [id number] 10:17:00 Test Item Value Reference Range Interpretation Comments MAGNESIUM (test code = 5511739110) 2.0 mg/dL 1.7-2.4 Lab Interpretation (test code = Normal 78727-3) [facility] Metabolic Panel (NA, K, CL, CO2, GLUCOSE, BUN, CREATININE, CA)2020-03-26 10:17:00 Test Item Value Reference Range Interpretation Comments NA (test code = 136 mmol/L 135-145 0814007882) K (test code = 4.6 mmol/L 3.5-5 Slight 1024331417) hemolysis CL (test code = 109 mmol/L 98-108 H 8271249010) CO2 TOTAL (test code 26 mmol/L 23-31 = 0094139246) AGAP (test code = 2-16 L 5242010672) BUN (test code = 22 mg/dL 7-23 Slight 5886677696) hemolysis GLUCOSE (test code = 82 mg/dL 70-110 1819583484) CREATININE (test code 0.88 mg/dL 0.6-1.25 = 0369751086) CALCIUM (test code = 8.1 mg/dL 8.6-10.6 L 7819837388) eGFR Calculation mL/min/1.73m2 (Non-) (test code = 2108830262) eGFR Calculation mL/min/1.73m2 () (test code = 1892539919) GILBERTO (test code = GILBERTO) Association of [...] tests). Lab Interpretation Abnormal (test code = 46912-3) [facility] AmericaLactic Acid Whole [id number] 04:22:00 Test Item Value Reference Range Interpretation Comments LACTIC ACID (test code = 1.52 mmol/L 8250419670) [facility] AmericaPhosphorus Euptr4021-05-33 03:37:00 Test Item Value Reference Range Interpretation Comments PHOSPHORUS (test code = 5122862576) 4.6 mg/dL 2.5-5 Lab Interpretation (test code = Normal 63004-3) [facility] AmericaMAGNESIUM2020-08-03 03:37:00 Test Item Value Reference Range Interpretation Comments MAGNESIUM (test code = 0488340912) 2.3 mg/dL 1.7-2.4 Lab Interpretation (test code = Normal 90812-0) [facility] AmericaCOVID-19 (ID NOW RAPID TESTING)2020-03-26 02:24:00 Test Item Value Reference Range Interpretation Comments SARS-CoV-2 Rapid ID NOW Not Detected Not Detected (test code = 64537-7) GILBERTO (test code = GILBERTO) ID NOW COVID-19 Assay is an isothermal nucleic acid amplification test intended for the qualitative detection of nucleic acid from SARS-CoV-2 viral RNA in nasopharyngeal (FLOAT BUILDER) specimens. It is used under Emergency Use [...] indicated. Lab Interpretation Normal (test code = 98985-8) [facility] AmericaCT ABDOMEN PELVIS W [id number] 01:33:06 Redemonstration of severe dilatation of the [...] No focal bowel inflammation or wall thickening.. [facility] Metabolic Panel (NA, K, CL, CO2, GLUCOSE, BUN, CREATININE, CA)2020-03-26 00:57:00 Test Item Value Reference Range Interpretation Comments NA (test code = 139 mmol/L 135-145 4640896615) K (test code = 4.4 mmol/L 3.5-5 8853733705) CL (test code = 105 mmol/L 98-108 6982551332) CO2 TOTAL (test code = 29 mmol/L 23-31 0750637498) AGAP (test code = 2-16 3626030211) BUN (test code = 28 mg/dL 7-23 H 1925915734) GLUCOSE (test code = 84 mg/dL 70-110 2419911982) CREATININE (test code = 1.19 mg/dL 0.6-1.25 4778261962) CALCIUM (test code = 8.9 mg/dL 8.6-10.6 8828668400) eGFR Calculation mL/min/1.73m2 (Non-) (test code = 1160933238) eGFR Calculation mL/min/1.73m2 () (test code = 3350006421) GILBERTO (test code = GILBERTO) Association of [...] tests). Lab Interpretation Abnormal (test code = 55660-5) [facility] AmericaHepatic Function Panel (ALB, T.PRO, BILI T, BU/BC, ALT, AST, ALK PHOS)2020-03-26 00:57:00 Test Item Value Reference Range Interpretation Comments TOTAL BILI (test code = 3496715333) 0.2 mg/dL 0.1-1.1 BILI UNCON (test code = 1155377336) 0.0 mg/dL 0.1-1.1 L BILI CONJ (test code = 7714752423) 0.0 mg/dL 0-0.3 T PROTEIN (test code = 9820851999) 6.2 g/dL 6.3-8.2 L ALBUMIN (test code = 7046921627) 4.1 g/dL 3.5-5 ALK PHOS (test code = 6381150512) 56 U/L 34-122 ALTv (test code = 1742-6) 24 U/L 5-50 AST(SGOT) (test code = 9894075588) 28 U/L 13-40 Lab Interpretation (test code = Abnormal 40510-0) [facility] AmericaCBC with Twolfnlwlogq0976-73-98 00:47:00 Test Item Value Reference Range Interpretation Comments WBC (test code = See_Comment [Automated 4690-2) message] The sy stem which [...] RDW-SD (test code = 45.9 fL 38.5-51.6 85630-4) RDW-CV (test code = 14.0 % 12.1-15.4 788-0) PLT (test code = See_Comment [Automated 777-3) message] The sy stem which generated this result transmitted reference range : 150 - 328 10*3/ ?L. The reference r meredith was not used to interpret this result as normal/abnormal . MPV (test code = 10.9 fL 9.8-13 22246-3) NRBC/100 WBC (test See_Comment [Automat ed code = 3427302376) message] The system which generated this result transmitted reference range : 0.0 - 10.0 /100 WBCs. The refer ence range was not u sed to interpret th is result as normal/abnormal . NRBC x10^3 (test code <0.01 See_Comment [Auto mated = 0242300049) message] The s ystem which generated this result transmitted reference range : 10*3/?L. The reference range was not used to interpret this result as normal/abnormal . GRAN MAT (NEUT) % 49.8 % (test code = 770-8) IMM GRAN % (test code 0.20 % = 7993460253) LYMPH % (test code = 32.0 % 736-9) MONO % (test code = 14.3 % 5905-5) EOS % (test code = 3.0 % 713-8) BASO % (test code = 0.7 % 706-2) GRAN MAT x10^3(ANC) 2.29 10*3/uL 1.99-6.95 (test code = 3498783261) IMM GRAN x10^3 (test <0.03 0-0.06 code = 8990405244) LYMPH x10^3 (test code 1.47 10*3/uL 1.09-3.23 = 731-0) MONO x10^3 (test code 0.66 10*3/uL 0.36-1.02 = 742-7) EOS x10^3 (test code = 0.14 10*3/uL 0.06-0.53 711-2) BASO x10^3 (test code 0.03 10*3/uL 0.01-0.09 = 704-7) Lab Interpretation Abnormal (test code = 77850-5) [facility] AmericaMagnesium Rjzii6820-61-13 05:23:00 Test Item Value Reference Range Interpretation Comments MAGNESIUM (test code = 2475433951) 2.1 mg/dL 1.7-2.4 Lab Interpretation (test code = Normal 06960-0) [facility] AmericaCOVID-19 (ID NOW RAPID TESTING)2020-03-03 04:45:00 Test Item Value Reference Range Interpretation Comments SARS-CoV-2 Rapid ID NOW Not Detected Not Detected (test code = 33844-3) GILBERTO (test code = GILBERTO) ID NOW COVID-19 Assay is an isothermal nucleic acid amplification test intended for the qualitative detection of nucleic acid from SARS-CoV-2 viral RNA in nasopharyngeal (FLOAT BUILDER) specimens. It is used under Emergency Use [...] indicated. Lab Interpretation Normal (test code = 58649-8) [facility] AmericaProthrombin Time / [id number] 04:40:00 Test Item Value Reference Range Interpretation Comments PROTIME PATIENT (test See_Comment [Auto mated message] code = 5964-2) The system Crescentrating ich generated this result transmitted ref erence range: 10.1 - 1 2.6 Seconds. The re ference range was not u sed to interpret this result as normal/abnor mal. INR (test code = 6301-6) Nor mal INR <1.1; Warfarin Therap eutic range 2.0 to 3. 0 or 2.5 to 3.5, dep ending upon the indica tions. Lab Interpretation (test Normal code = 43889-4) [facility] AmericaaPTT2020-07-11 04:40:00 Test Item Value Reference Range Interpretation Comments APTT Patient (test code = See_Comment [ Automated message] 3173-2) The system Crescentratingic h generated this result transmitted ref erence range: 26 - 36 Seconds. The re ference range was not u sed to interpret this result as normal/abnor mal. Lab Interpretation (test Normal code = 08683-6) [facility] AmericaPhosphorus [id number] 04:31:00 Test Item Value Reference Range Interpretation Comments PHOSPHORUS (test code = 8629454066) 4.0 mg/dL 2.5-5 Lab Interpretation (test code = Normal 22794-6) [facility] AmericaXR ABDOMEN ACUTE [id number] 02:54:09 Impression: No radiographic evidence for acute cardiopulmonary disease. No radiographic evidence forpneumoperitoneum. Marked gaseous distention of predominantly large bowel loops in the abdomenand pelvis, similar to prior CT of 02/26/2020. On that CT, there was atransition in the distal descending colon, without mass lesion or definitesigmoid volvulus appreciated. RL: 460 AFC: [id number] Indication: Diffuse abdominal pain, obstructionComparison: CT the [...] lesion or definitesigmoid volvulus appreciated. RL: 460AFC: [id number] signed by Angeli Carrillo MD, PhD at 03/02/2020 9:54 PM [facility] AmericaUrinalysis2020-07-11 01:50:00 Test Item Value Reference Range Interpretation Comments APPEARANCE (test code = Hazy Clear A 0350660299) COLOR (test code = Tahira Yellow A 1253034614) PH (test code = 4.8-8.0 7924057356) SP GRAVITY (test code = 1.003-1.030 6499154518) GLU U QUAL (test code = Normal Normal 7738765467) BLOOD (test code = Negative Negative 9844144715) KETONES (test code = 5 mg/dL Negative A 7056495588) PROTEIN (test code = Negative Negative 2887-8) UROBILIN (test code = 2.0 mg/dL Normal A 8964157466) BILIRUBIN (test code = Negative Negative 2240069997) NITRITE (test code = Negative Negative 5824444211) LEUK ROGER (test code = Negative Negative 5554330881) RBC/HPF (test code = See_Comment [Autom ated message] 5526268325) The system niiu generated this result transmit dain reference range : 0 - 3 HPF. The refe rence range was not u sed to interpret th is result as normal/abnormal . WBC/HPF (test code = See_Comment [Autom ated message] 2204979242) The system niiu generated this result transmit dain reference range : 0 - 5 HPF. The refe rence range was not u sed to interpret th is result as normal/abnormal . BACTERIA (test code = Negative Negative 8439626260) MUCOUS (test code = Slight Negative LPF A 6401904074) SQ EPITH (test code = <1 See_Comment [Auto mated message] 6670845610) The system niiu generated this result transmit dain reference range : <=2 HPF. The refere nce range was not u sed to interpret th is result as normal/abnormal . CA OXALATE (test code = See_Comment H [Au tomated message] 1112420729) The system niiu generated this result transmit dain reference range : <=1 HPF. The refere nce range was not u sed to interpret th is result as normal/abnormal . SPERM (test code = See_Comment [Automat ed message] 8521699510) The system niiu generated this result transmit dain reference range : <=1 HPF. The refere nce range was not u sed to interpret th is result as normal/abnormal . Lab Interpretation (test Abnormal code = 78962-3) [facility]Bal[facility] (NA, K, CL, CO2, GLUCOSE, BUN, CREATININE, CA)2020-03-03 01:44:00 Test Item Value Reference Range Interpretation Comments NA (test code = 140 mmol/L 135-145 1602749221) K (test code = 4.1 mmol/L 3.5-5 8088376488) CL (test code = 106 mmol/L 98-108 9338143489) CO2 TOTAL (test code = 25 mmol/L 23-31 7906181163) AGAP (test code = 2-16 8061296921) BUN (test code = 17 mg/dL 7-23 5570022017) GLUCOSE (test code = 91 mg/dL 70-110 9621916521) CREATININE (test code 1.13 mg/dL 0.6-1.25 = 2993956910) CALCIUM (test code = 9.0 mg/dL 8.6-10.6 2035691600) eGFR Calculation mL/min/1.73m2 (Non-) (test code = 5518897145) eGFR Calculation mL/min/1.73m2 () (test code = 8936380783) GILBERTO (test code = GILBERTO) Association of [...] or urine or abnormalities in imaging tests). [facility] AmericaHepatic Function Panel (ALB, T.PRO, BILI T, BU/BC, ALT, AST, ALK PHOS)2020-03-03 01:44:00 Test Item Value Reference Range Interpretation Comments TOTAL BILI (test code = 8407417952) 0.4 mg/dL 0.1-1.1 BILI UNCON (test code = 3792479040) 0.4 mg/dL 0.1-1.1 BILI CONJ (test code = 0998882800) 0.0 mg/dL 0-0.3 T PROTEIN (test code = 7021697760) 6.3 g/dL 6.3-8.2 ALBUMIN (test code = 8282872599) 4.2 g/dL 3.5-5 ALK PHOS (test code = 5885724302) 43 U/L 34-122 ALTv (test code = 1742-6) 20 U/L 5-50 AST(SGOT) (test code = 9035634164) 26 U/L 13-40 Lab Interpretation (test code = Normal 33176-5) [facility] WITH [id number] 01:37:00 Test Item Value Reference Range Interpretation Comments WBC (test code = See_Comment [Automated 6376-2) message] The sy stem which generated this result transmitted reference range : 4.20 - 10.70 10*3/?L. The reference range was not used to interpret this result as normal/abnormal . RBC (test code = See_Comment L [Automated 299-8) message] The sy [...] RDW-SD (test code = 45.0 fL 38.5-51.6 95653-6) RDW-CV (test code = 13.7 % 12.1-15.4 788-0) PLT (test code = See_Comment [Automated 017-3) message] The sy stem which generated this result transmitted reference range : 150 - 328 10*3/ ?L. The reference r meredith was not used to interpret this result as normal/abnormal . MPV (test code = 11.3 fL 9.8-13 78008-4) NRBC/100 WBC (test See_Comment [Automat ed code = 7778439865) message] The system which generated this result transmitted reference range : 0.0 - 10.0 /100 WBCs. The refer ence range was not u sed to interpret th is result as normal/abnormal . NRBC x10^3 (test code <0.01 See_Comment [Auto mated = 7100231390) message] The s ystem which generated this result transmitted reference range : 10*3/?L. The reference range was not used to interpret this result as normal/abnormal . GRAN MAT (NEUT) % 53.2 % (test code = 770-8) IMM GRAN % (test code 0.20 % = 9945091835) LYMPH % (test code = 34.5 % 736-9) MONO % (test code = 9.7 % 5905-5) EOS % (test code = 1.8 % 713-8) BASO % (test code = 0.6 % 706-2) GRAN MAT x10^3(ANC) 2.69 10*3/uL 1.99-6.95 (test code = 3453042259) IMM GRAN x10^3 (test <0.03 0-0.06 code = 6677296021) LYMPH x10^3 (test code 1.74 10*3/uL 1.09-3.23 = 731-0) MONO x10^3 (test code 0.49 10*3/uL 0.36-1.02 = 742-7) EOS x10^3 (test code = 0.09 10*3/uL 0.06-0.53 711-2) BASO x10^3 (test code 0.03 10*3/uL 0.01-0.09 = 704-7) Lab Interpretation Abnormal (test code = 37770-1) [facility] AmericaLactic Acid Whole [id number] 01:28:00 Test Item Value Reference Range Interpretation Comments LACTIC ACID (test code = 1.62 mmol/L 6364336700) [facility] AmericaDRUG PANEL 2 [id number] 22:13:00 Test Item Value Reference Range Interpretation Comments AMPHET (test code = Negative Negative 1569401442) LOS U (test code = Negative Negative 4091515634) BENZO U (test code = Negative Negative 8225579279) Cocaine Metabolite (test Negative Negative code = 2426390523) METHADONE (test code = Negative Negative 5136860255) OPIATES (test code = Negative Negative 2099171851) PCP (test code = Negative Negative 3045001790) THC (test code = Negative Negative 1817492893) GILBERTO (test code = GILBERTO) Urine Drug [...] testing). Lab Interpretation (test Normal code = 90389-2) [facility] AmericaTHYROID STIMULATING [id number] 19:02:00 Test Item Value Reference Range Interpretation Comments TSH (test code = See_Comment [Automated message] 2395206030) The system niiu generated this result transmitted ref erence range: 0.45 - 4 .70 mIU/L. The refe rence range was not u sed to interpret this result as normal/abnor mal. Lab Interpretation (test Normal code = 20615-0) [facility] [id number] 18:49:00 Test Item Value Reference Range Interpretation Comments FREE T3 (test code = 8267126425) 2.56 pg/mL 2.77-5.27 L Lab Interpretation (test code = Abnormal 66776-4) [facility] [id number] 18:49:00 Test Item Value Reference Range Interpretation Comments FREE T4 (test code = See_Comment [Autom ated message] 9197281954) The system niiu generated this result transmitted ref erence range: 0.78 - 2 .20 ng/dL:. The ref erence range was not u sed to interpret this result as normal/abnor mal. Lab Interpretation (test Normal code = 91992-5) [facility] AmericaCT ABDOMEN PELVIS W [id number] 20:56:47 Persistent marked severe dilatation of the [...] No focal hepatic lesions. Normal contour. Hepatomegaly, qjhftgezx83.7 cm, in the craniocaudal dimension. Diffuse hypoattenuation [...] No focal hepatic lesions. Normal contour. Hepatomegaly, qltxiqjij79.7 cm, in the craniocaudal dimension. Diffuse hypoattenuation [...] evidence ofvolvulus.Preliminary Report Dictated by Resident: Merritt Resendizva-Cardenas, MD., have reviewed this study and agree withthe above report. [facility] AmericaCOVID-19 (ID NOW RAPID TESTING)2020-02-26 07:03:00 Test Item Value Reference Range Interpretation Comments SARS-CoV-2 Rapid ID NOW Not Detected Not Detected (test code = 61610-2) GILBERTO (test code = GILBERTO) ID NOW COVID-19 Assay is an isothermal nucleic acid amplification test intended for the qualitative detection of nucleic acid from SARS-CoV-2 viral RNA in nasopharyngeal (FLOAT BUILDER) specimens. It is used under Emergency Use [...] indicated. Lab Interpretation Normal (test code = 93869-1) [facility] AmericaXR ABDOMEN ACUTE [id number] 05:00:33 Impression: No radiographic evidence for acute cardiopulmonary disease. Marked gaseous distention ofthe colon, with a relative paucity of gas inthe distal sigmoid colon and rectum. This may reflect pseudoobstruction,but mechanical distal colonic obstruction cannot be excluded. RL: 460 AFC: [id number] Ordering physician: SABI CORTESUIndication: Abdominal distention Comparison: [...] distal colonic obstruction cannot be excluded.RL: 460AF: [id number] signed by Angeli Carrillo MD, PhD at 02/26/2020 12:00 [facility] (NA, K, CL, CO2, GLUCOSE, BUN, CREATININE, CA)2020-02-26 04:03:00 Test Item Value Reference Range Interpretation Comments NA (test code = 142 mmol/L 135-145 4652284085) K (test code = 4.1 mmol/L 3.5-5 4366651772) CL (test code = 107 mmol/L 98-108 2277326920) CO2 TOTAL (test code = 29 mmol/L 23-31 1927775497) AGAP (test code = 2-16 4667006635) BUN (test code = 13 mg/dL 7-23 8950889150) GLUCOSE (test code = 82 mg/dL 70-110 0694551351) CREATININE (test code 1.14 mg/dL 0.6-1.25 = 3256664750) CALCIUM (test code = 9.5 mg/dL 8.6-10.6 0803422017) eGFR Calculation mL/min/1.73m2 (Non-) (test code = 2400411764) eGFR Calculation mL/min/1.73m2 () (test code = 3836709270) GILBERTO (test code = GILBERTO) Association of [...] or urine or abnormalities in imaging tests). [facility] America[facility] Function Panel (ALB, T.PRO, BILI T, BU/BC, ALT, AST, ALK PHOS)2020-02-26 04:03:00 Test Item Value Reference Range Interpretation Comments TOTAL BILI (test code = 4251518355) 0.5 mg/dL 0.1-1.1 BILI UNCON (test code = 8485776416) 0.5 mg/dL 0.1-1.1 BILI CONJ (test code = 7707741725) 0.0 mg/dL 0-0.3 T PROTEIN (test code = 9919571600) 6.2 g/dL 6.3-8.2 L ALBUMIN (test code = 9850907477) 4.2 g/dL 3.5-5 ALK PHOS (test code = 8234406661) 40 U/L 34-122 ALTv (test code = 1742-6) 20 U/L 5-50 AST(SGOT) (test code = 9315650866) 26 U/L 13-40 Lab Interpretation (test code = Abnormal 65767-3) [facility] AmericaLipase [id number] 04:03:00 Test Item Value Reference Range Interpretation Comments LIPASE (test code = 9877650766) 57 U/L 0-220 Lab Interpretation (test code = Normal 87277-2) [facility] AmericaLactic Acid Whole [id number] 03:52:00 Test Item Value Reference Range Interpretation Comments LACTIC ACID (test code = 1.66 mmol/L 0.5-2.2 5505551797) [facility] AmericaCBC WITH [id number] 03:47:00 Test Item Value Reference Range Interpretation [...] RDW-SD (test code = 45.1 fL 38.5-51.6 08463-1) RDW-CV (test code = 13.7 % 12.1-15.4 788-0) PLT (test code = See_Comment [Automated 777-3) message] The sy stem which generated this result transmitted reference range : 150 - 328 10*3/ ?L. The reference r meredith was not used to interpret this result as normal/abnormal . MPV (test code = 10.7 fL 9.8-13 84992-7) NRBC/100 WBC (test See_Comment [Automat ed code = 2117550342) message] The system which generated this result transmitted reference range : 0.0 - 10.0 /100 WBCs. The refer ence range was not u sed to interpret th is result as normal/abnormal . NRBC x10^3 (test code <0.01 See_Comment [Auto mated = 6778749403) message] The s ystem which generated this result transmitted reference range : 10*3/?L. The reference range was not used to interpret this result as normal/abnormal . GRAN MAT (NEUT) % 63.1 % (test code = 770-8) IMM GRAN % (test code 0.40 % = 6800382245) LYMPH % (test code = 25.1 % 736-9) MONO % (test code = 9.9 % 5905-5) EOS % (test code = 1.1 % 713-8) BASO % (test code = 0.4 % 706-2) GRAN MAT x10^3(ANC) 3.52 10*3/uL 1.99-6.95 (test code = 5001930044) IMM GRAN x10^3 (test <0.03 0-0.06 code = 8588296205) LYMPH x10^3 (test code 1.40 10*3/uL 1.09-3.23 = 731-0) MONO x10^3 (test code 0.55 10*3/uL 0.36-1.02 = 742-7) EOS x10^3 (test code = 0.06 10*3/uL 0.06-0.53 711-2) BASO x10^3 (test code <0.03 0.01-0.09 = 704-7) Lab Interpretation Abnormal (test code = 35243-6) [facility] XR ABDOMEN 1 [id number] 12:53:00 Name: DORA MCNEILL [facility] : 1970 Age/S: 50 / M [address] Unit #: [id number] Loc: [place] [address] 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 LAST SCOURER Acct: [id number] Dis Date: Status: ADM IN PHONE #: [phone] Exam Date: 02/25/2020 1036 FAX #: Reason: abdominal distention EXAMS: CPT: [id number] XR ABDOMEN 1 V 64382 Fluoro Time: DAP (Gy m2): Air Kerma [...] the left lower quadrant (not previously seen) [id number] Reported and signed by: Sol Paige MD CC: Andre Solano; Mark Perea MD PAGE 1 Signed Report Name: DORA MCNEILL [facility] : 1970 Age/S: 50 / M [address] Unit #: [id number] Loc: [place] [address] 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 Acct: [id number] Dis Date: Status: ADM IN PHONE #: [phone] Exam Date: 02/25/2020 1036 FAX #: Reason: abdominal distention EXAMS: CPT: [id number] XR ABDOMEN 1 V 36356 Fluoro Time: DAP (Gy m2): Air Kerma (mGy): <Continued> Technologist: RT Prashant(R) Trnscb Date/Time: 02/25/2020 (0096) Anya Orig Print D/T: S: 02/25/2020 (6188) PAGE 2 Signed Report COMPREHENSIVE METABOLIC [id number] 08:20:00 Test Item Value Reference Range Interpretation [...] 50-136 L TOTAL (test code = ALKP) [id number] 08:20:00 Test Item Value Reference Range Interpretation Comments MAGNESIUM (test code = MAG) 2.2 MG/DL 1.8-2.4 N THYROID STIMULATING [id number] 08:20:00 Test Item Value Reference Range Interpretation Comments THYROID STIMULATING HORMONE 5.430 mcIU/ML 0.340-4.820 H (test code = TSH) CBC W/AUTO [id number] 07:55:00 Test Item Value Reference Range Interpretation [...] N NRBC#) UA RFLX MICR CULT IF [id number] 12:29:00 Test Item Value Reference Range Interpretation [...] culture: Suprapubic PainUA RFLX MICR CULT IF [id number] 12:29:00 Test Item Value Reference Range Interpretation [...] for culture: Suprapubic PainCOVID 19 Asymptomatic IH [id number] 22:09:00 Test Item Value Reference Range Interpretation [...] tent with COVID-19. - CT ABD PELVIS [id number]/[id number] 21:10:00 Name: DORA MCNEILL [facility] : 1970 Age/S: 50 / M [address] [facility] [address] Unit #: [id number] Loc: [place] [address] Phys: Evin Castellanos MD Acct: [id number] Dis Date: Status: REG ER PHONE #: [phone] Exam Date: 02/23/20209 FAX #: Reason: diffuse abdomen pain and distention EXAMS: CPT: [id number] CT ABD PELVIS W/CONT 64744 EXAM: - CT ABD PELVIS W/CONT LOCATION: [...] 1 Signed Report (CONTINUED) Name: DORA MCNEILL [facility] : 1970 Age/S: 50 / M [address] Unit #: [id number] Loc: [place] [address] Phys: Evin Castellanos MD Acct: [id number] Dis Date: Status: REG ER PHONE #: [phone] Exam Date: 02/23/20202047 FAX #: Reason: diffuse abdomen pain and distention EXAMS: CPT: [id number] CTABD PELVIS W/CONT 75859 <Continued> CT. No bowel wall thickening or [...] by: Marybel José M.D. CC: Susana Meza FLOAT BUILDER; Carl Luevano MD Technologist:Rudy Zuniga, RT(R)(CT)(MRI) CTDI: DLP: Trnscb Date/Time: 02/23/2020 (2109) RafatR.TH15 Orig Print D/T: S: 02/23/2020 (2112) PAGE 2 Signed Report- XR CHEST 1 [id number] 21:03:00 [facility] 1970 [facility] 50 / M [address] Unit #: [id number] Loc: [place] [address] Phys: Evin Castellanos MD Acct: [id number] Dis Date: Status: REG ER PHONE #: [phone] Exam Date: 02/23/20202055 FAX #: Reason: Code Sepsis EXAMS: CPT: [id number] XR CHEST 1 V 70362 Fluoro Time: DAP (Gy m2): Air Kerma [...] Luevano MD PAGE1 Signed Report Name: DORA MCNEILL [facility] : 1970 Age/S: 50 / M [address] Unit #: [id number] Loc: [place] [address] Phys: Evin Castellanos MD Acct: [id number] Dis Date: Status: REG ER PHONE #: [phone] Exam Date: 02/23/20202055 FAX #: Reason: Code Sepsis EXAMS: CPT: [id number] XR CHEST 1 V 19689 Fluoro Time: DAP (Gy m2): Air Kerma (mGy): <Continued> Technologist: Rudy Zuniga RT(R)(CT)(MRI) Trnscb Date/Time: 02/23/2020 (2102) Alanis Orig Print D/T: S: 02/23/2020 (0102) PAGE 2 Signed ReportBASIC METABOLIC PANEL 2020-02-23 [...] 8.5-10.1 N Completed by Nursing: NOHEPATIC FUNCTION [id number] 20:02:00 Test Item Value Reference Range Interpretation [...] N code = ALKP) Completed by Nursing: [id number] 20:02:00 Test Item Value Reference Range Interpretation Comments LIPASE (test code = LIP) 97 Unit/L 114-286 L Completed by Nursing: [id number]-[id number] 20:02:00 Test Item Value Reference Range Interpretation [...] ori yby method. Completed by Nursing: NOLACTIC [id number] 19:59:00 Test Item Value Reference Range Interpretation Comments LACTIC ACID (test code = LACT) 1.2 mmol/L 0.4-2.0 N CBC W/AUTO [id number] 19:46:00 Test Item Value Reference Range Interpretation [...] CRITERIA = MDIFF) - XR ABDOMEN 2 [id number] 06:22:00 Name: ODRA MCNEILL [facility] : 1970 Age/S: 50 / M [address] Unit #: [id number] Loc: [place] [address] Phys: Leonidas Robertson MD Acct: [id number] Dis Date: Status: ADM IN PHONE #: [phone] Exam Date: 02/19/2020 0440 FAX #: Reason: megacolon EXAMS: CPT: [id number] XR ABDOMEN 2 V 90066 Fluoro Time: DAP (Gy m2): Air Kerma [...] 1 Signed Report Name: DORA MCNEILL [facility] : 1970 Age/S: 50 / M [address] Unit #: [id number] Loc: [place] [address] Phys: Leonidas Robertson MD Acct: [id number] Dis Date: Status: ADM IN PHONE #: [phone] Exam Date: 02/19/2020 0440 FAX #: Reason: megacolon EXAMS: CPT: [id number] XR ABDOMEN 2 V 16879 Fluoro Time: DAP (Gy m2): Air Kerma (mGy): <Continued> Technologist: Carrie Barnett, RT(R)(CT) Trnscb Date/Time: 02/19/2020 (06) t.FLEXR.AL7 Orig Print D/T: S: 02/19/2020 (0625) PAGE 2 Signed ReportBASIC METABOLIC [id number] 05:52:00 Test Item Value Reference Range Interpretation [...] CA) 8.5 MG/DL 8.5-10.1 N CBC W/AUTO [id number] 05:40:00 Test Item Value Reference Range Interpretation [...] NO DIFF/SCN CRITERIA = MDIFF) BASIC METABOLIC [id number] 06:52:00 Test Item Value Reference Range Interpretation [...] CA) 8.3 MG/DL 8.5-10.1 L CBC W/AUTO [id number] 06:39:00 Test Item Value Reference Range Interpretation [...] DIFF/SCN CRITERIA = MDIFF) Coronavirus 2018 nCoV Knueach6761-13-86 05:35:00 Test Item Value Reference Range Interpretation [...] NA (test code = 139 mmol/L 135-145 2699477964) K (test code = 4.3 mmol/L 3.5-5 4421347964) CL (test code = 105 mmol/L 98-108 5435343414) CO2 TOTAL (test code = 30 mmol/L 23-31 3217611522) AGAP (test code = 2-16 1828631245) BUN (test code = 6 mg/dL 7-23 L 1584647321) GLUCOSE (test code = 94 mg/dL 70-110 3803984173) CREATININE (test code = 1.07 mg/dL 0.6-1.25 4710117799) CALCIUM (test code = 9.3 mg/dL 8.6-10.6 3395551862) eGFR Calculation mL/min/1.73m2 (Non-) (test code = 5988778453) eGFR Calculation mL/min/1.73m2 () (test code = 0446040414) GILBERTO (test code = GILBERTO) Association of [...] tests). Lab Interpretation Abnormal (test code = 87252-3) [facility] 16:58:00 Test Item Value Reference Range Interpretation Comments MAGNESIUM (test code = 3456827188) 2.0 mg/dL 1.7-2.4 Lab Interpretation (test code = Normal 08059-9) [facility] AmericaXR [id number] 17:02:411. Interval worsening of air distended loops [...] with cecum measuring up to 15 cm. [facility] AmericaCBC WITH [id number] 07:20:00 Test Item Value Reference Range Interpretation Comments WBC (test code = See_Comment L [Automated 0192-2) message] The sy stem which generated this result transmitted reference range : 4.20 - 10.70 10*3/?L. The reference range was not used to interpret this result as normal/abnormal . RBC (test code = See_Comment [Automated 040-8) message] The sy stem which generated this [...] RDW-SD (test code = 46.5 fL 38.5-51.6 95035-8) RDW-CV (test code = 13.9 % 12.1-15.4 788-0) PLT (test code = See_Comment L [Automated 777-3) message] The sy stem which generated this result transmitted reference range : 150 - 328 10*3/ ?L. The reference r meredith was not used to interpret this result as normal/abnormal . MPV (test code = 10.7 fL 9.8-13 59466-1) NRBC/100 WBC (test See_Comment [Automat ed code = 8023765452) message] The system which generated this result transmitted reference range : 0.0 - 10.0 /100 WBCs. The refer ence range was not u sed to interpret th is result as normal/abnormal . NRBC x10^3 (test code <0.01 See_Comment [Auto mated = 7517753715) message] The s ystem which generated this result transmitted reference range : 10*3/?L. The reference range was not used to interpret this result as normal/abnormal . GRAN MAT (NEUT) % 48.6 % (test code = 770-8) IMM GRAN % (test code 0.20 % = 6799032862) LYMPH % (test code = 39.6 % 736-9) MONO % (test code = 8.4 % 5905-5) EOS % (test code = 2.7 % 713-8) BASO % (test code = 0.5 % 706-2) GRAN MAT x10^3(ANC) 1.96 10*3/uL 1.99-6.95 L (test code = 9767748140) IMM GRAN x10^3 (test <0.03 0-0.06 code = 1697520360) LYMPH x10^3 (test code 1.60 10*3/uL 1.09-3.23 = 731-0) MONO x10^3 (test code 0.34 10*3/uL 0.36-1.02 L = 742-7) EOS x10^3 (test code = 0.11 10*3/uL 0.06-0.53 711-2) BASO x10^3 (test code <0.03 0.01-0.09 = 704-7) Lab Interpretation Abnormal (test code = 81805-7) [facility] METABOLIC PANEL (NA, K, CL, CO2, GLUCOSE, BUN, CREATININE, CA)2020-01-31 06:32:00 Test Item Value Reference Range Interpretation Comments NA (test code = 138 mmol/L 135-145 8449442870) K (test code = 4.2 mmol/L 3.5-5 Slight 2758839402) hemolysis CL (test code = 108 mmol/L 98-108 0442280256) CO2 TOTAL (test code 22 mmol/L 23-31 L = 7353427544) AGAP (test code = 2-16 8087101104) BUN (test code = 7 mg/dL 7-23 Slight 8817999750) hemolysis GLUCOSE (test code = 92 mg/dL 70-110 9314430136) CREATININE (test code 1.02 mg/dL 0.6-1.25 = 9096421789) CALCIUM (test code = 8.9 mg/dL 8.6-10.6 1039909974) eGFR Calculation mL/min/1.73m2 (Non-) (test code = 5883094596) eGFR Calculation mL/min/1.73m2 () (test code = 7096111460) GILBERTO (test code = GILBERTO) Association of [...] tests). Lab Interpretation Abnormal (test code = 84016-5) [facility] WITH [id number] 11:00:00 Test Item Value Reference Range Interpretation [...] RDW-SD (test code = 48.7 fL 38.5-51.6 20816-3) RDW-CV (test code = 14.4 % 12.1-15.4 788-0) PLT (test code = See_Comment L [Automated 777-3) message] The sy stem which generated this result transmitted reference range : 150 - 328 10*3/ ?L. The reference r meredith was not used to interpret this result as normal/abnormal . MPV (test code = 10.7 fL 9.8-13 16082-7) IPF % (test code = 5.1 % 1.2-10.7 Platelet count 1757224025) measured by fluorescence method. NRBC/100 WBC (test See_Comment [Automat ed code = 2174480907) message] The system which generated this result transmitted reference range : 0.0 - 10.0 /100 WBCs. The refer ence range was not u sed to interpret th is result as normal/abnormal . NRBC x10^3 (test code <0.01 See_Comment [Auto mated = 1161204622) message] The s ystem which generated this result transmitted reference range : 10*3/?L. The reference range was not used to interpret this result as normal/abnormal . SEG % (test code = 53 % 33-76 27783-8) BAND % (test code = 1 % 0-1 19778-8) LYMPH % (test code = 39 % 14-54 07864-6) MONO % (test code = 4 % 0-4 32675-8) EOS % (test code = 3 % 0-3 79712-5) ANC (test code = 1.93 10*3/uL 1.99-6.95 L 0415999702) Lab Interpretation Abnormal (test code = 83153-9) [facility] Metabolic Panel (NA, K, CL, CO2, GLUCOSE, BUN, CREATININE, CA)2020-01-29 10:23:00 Test Item Value Reference Range Interpretation Comments NA (test code = 138 mmol/L 135-145 8917319098) K (test code = 4.0 mmol/L 3.5-5 6709275871) CL (test code = 109 mmol/L 98-108 H 5397639258) CO2 TOTAL (test code = 27 mmol/L 23-31 0223990391) AGAP (test code = 2-16 4731125892) BUN (test code = 16 mg/dL 7-23 0230112898) GLUCOSE (test code = 81 mg/dL 70-110 0281699387) CREATININE (test code = 1.14 mg/dL 0.6-1.25 6810104824) CALCIUM (test code = 8.6 mg/dL 8.6-10.6 6795390367) eGFR Calculation mL/min/1.73m2 (Non-) (test code = 4271318736) eGFR Calculation mL/min/1.73m2 () (test code = 9606279314) GILBERTO (test code = GILBERTO) Association of [...] tests). Lab Interpretation Abnormal (test code = 19935-7) [facility] AmericaCORONAVIRUS COVID-19 [id number] 04:27:00 Test Item Value Reference Range Interpretation Comments SARS-CoV-2 Rapid ID NOW Not Detected Not Detected (test code = 59811-8) GILBERTO (test code = GILBERTO) ID NOW COVID-19 Assay is an isothermal nucleic acid amplification test intended for the qualitative detection of nucleic acid from SARS-CoV-2 viral RNA in nasopharyngeal (FLOAT BUILDER) specimens. It is used under Emergency Use [...] indicated. Lab Interpretation Normal (test code = 40619-7) [facility] AmericaLactic Acid Whole Vapna0510-94-55 04:10:00 Test Item Value Reference Range Interpretation Comments LACTIC ACID (test code = 1.74 mmol/L 0.5-2.2 0565758590) [facility] AmericaCOVID-19 (ID NOW RAPID TESTING)2020-01-29 02:17:00 Test Item Value Reference Range Interpretation Comments SARS-CoV-2 Rapid ID NOW Not Detected Not Detected (test code = 50479-4) GILBERTO (test code = GILBERTO) ID NOW COVID-19 Assay is an isothermal nucleic acid amplification test intended for the qualitative detection of nucleic acid from SARS-CoV-2 viral RNA in nasopharyngeal (FLOAT BUILDER) specimens. It is used under Emergency Use [...] indicated. Lab Interpretation Normal (test code = 87222-3) [facility] AmericaUrinalysis2020-06-07 02:14:00 Test Item Value Reference Range Interpretation Comments APPEARANCE (test code = Clear Clear 4927369771) COLOR (test code = Dark Yellow Yellow A 4396326366) PH (test code = 4.8-8.0 7963542920) SP GRAVITY (test code = 1.003-1.030 H 9214768760) GLU U QUAL (test code = Normal Normal 0194103354) BLOOD (test code = 1+ Negative A 1474408477) KETONES (test code = 5 mg/dL Negative A 4063023732) PROTEIN (test code = Negative Negative 2887-8) UROBILIN (test code = Normal Normal 0350911895) BILIRUBIN (test code = Negative Negative 7178287554) NITRITE (test code = Negative Negative 6197412234) LEUK ROGER (test code = Negative Negative 1946547465) RBC/HPF (test code = See_Comment H [Autom ated 8420896107) message] The sy stem which generated this result transmitted reference range : 0 - 3 HPF. The reference range was not used to interpret this result as normal/abnormal . WBC/HPF (test code = See_Comment [Autom ated 4956782496) message] The sy stem which generated this result transmitted reference range : 0 - 5 HPF. The reference range was not used to interpret this result as normal/abnormal . BACTERIA (test code = Moderate Negative A 4536615183) MUCOUS (test code = Slight Negative LPF A 6192120698) AMORPHOUS (test code = Rare Rare HPF 3935480013) SQ EPITH (test code = <1 See_Comment [Auto mated 2030707306) message] The sy stem which generated this result transmitted reference range : <=2 HPF. The reference range was not used to interpret this result as normal/abnormal . CA OXALATE (test code = See_Comment H [Au tomated 0528424195) message] The sy stem which generated this result transmitted reference range : <=1 HPF. The reference range was not used to interpret this result as normal/abnormal . HYAL CAST (test code = See_Comment H [Aut omated 6378985305) message] The sy stem which generated this result transmitted reference range : <=2 LPF. The reference range was not used to interpret this result as normal/abnormal . ASCORBIC ACID (test Negative code = 7376933460) Lab Interpretation Abnormal (test code = 88556-9) [facility] AmericaCT ABDOMEN PELVIS W [id number] 00:25:08Persistent marked and severe dilatation of the [...] essentially stable compared to prior examination. [facility] (NA, K, CL, CO2, GLUCOSE, BUN, CREATININE, CA)2020-01-28 23:38:00 Test Item Value Reference Range Interpretation Comments NA (test code = 143 mmol/L 135-145 5468954126) K (test code = 4.2 mmol/L 3.5-5 8671290095) CL (test code = 111 mmol/L 98-108 H 2185687441) CO2 TOTAL (test code = 28 mmol/L 23-31 0475482089) AGAP (test code = 2-16 7189773040) BUN (test code = 15 mg/dL 7-23 8105385352) GLUCOSE (test code = 68 mg/dL 70-110 L 4093606773) CREATININE (test code = 1.32 mg/dL 0.6-1.25 H 0528809192) CALCIUM (test code = 9.0 mg/dL 8.6-10.6 6967724190) eGFR Calculation mL/min/1.73m2 (Non-) (test code = 7220209553) eGFR Calculation mL/min/1.73m2 () (test code = 0541102694) GILBERTO (test code = GILBERTO) Association of [...] tests). Lab Interpretation Abnormal (test code = 59070-5) [facility] America[facility] Function Panel (ALB, T.PRO, BILI T, BU/BC, ALT, AST, ALK PHOS)2020-01-28 23:38:00 Test Item Value Reference Range Interpretation Comments TOTAL BILI (test code = 0035289767) 0.6 mg/dL 0.1-1.1 BILI UNCON (test code = 2993259821) 0.6 mg/dL 0.1-1.1 BILI CONJ (test code = 9293935729) 0.0 mg/dL 0-0.3 T PROTEIN (test code = 0256903602) 5.7 g/dL 6.3-8.2 L ALBUMIN (test code = 6350051635) 3.8 g/dL 3.5-5 ALK PHOS (test code = 9463004587) 37 U/L 34-122 ALTv (test code = 1742-6) 23 U/L 5-50 AST(SGOT) (test code = 6896144114) 25 U/L 13-40 Lab Interpretation (test code = Abnormal 06177-2) [facility] AmericaLipase [id number] 23:38:00 Test Item Value Reference Range Interpretation Comments LIPASE (test code = 9056461439) 62 U/L 0-220 Lab Interpretation (test code = Normal 15795-1) [facility] AmericaCBC WITH [id number] 23:29:00 Test Item Value Reference Range Interpretation Comments WBC (test code = See_Comment [Automated 2550-2) message] The sy stem which generated this [...] RDW-SD (test code = 47.5 fL 38.5-51.6 59430-4) RDW-CV (test code = 14.3 % 12.1-15.4 788-0) PLT (test code = See_Comment [Automated 777-3) message] The sy stem which generated this result transmitted reference range : 150 - 328 10*3/ ?L. The reference r meredith was not used to interpret this result as normal/abnormal . MPV (test code = 10.6 fL 9.8-13 55321-5) NRBC/100 WBC (test See_Comment [Automat ed code = 8473190513) message] The system which generated this result transmitted reference range : 0.0 - 10.0 /100 WBCs. The refer ence range was not u sed to interpret th is result as normal/abnormal . NRBC x10^3 (test code <0.01 See_Comment [Auto mated = 4008070695) message] The s ystem which generated this result transmitted reference range : 10*3/?L. The reference range was not used to interpret this result as normal/abnormal . GRAN MAT (NEUT) % 50.1 % (test code = 770-8) IMM GRAN % (test code 0.20 % = 1518912454) LYMPH % (test code = 34.7 % 736-9) MONO % (test code = 12.5 % 5905-5) EOS % (test code = 1.8 % 713-8) BASO % (test code = 0.7 % 706-2) GRAN MAT x10^3(ANC) 2.28 10*3/uL 1.99-6.95 (test code = 6813934252) IMM GRAN x10^3 (test <0.03 0-0.06 code = 4453294378) LYMPH x10^3 (test code 1.58 10*3/uL 1.09-3.23 = 731-0) MONO x10^3 (test code 0.57 10*3/uL 0.36-1.02 = 742-7) EOS x10^3 (test code = 0.08 10*3/uL 0.06-0.53 711-2) BASO x10^3 (test code 0.03 10*3/uL 0.01-0.09 = 704-7) Lab Interpretation Abnormal (test code = 45940-5) [facility] METABOLIC PANEL (NA, K, CL, CO2, GLUCOSE, BUN, CREATININE, CA)2020-01-26 18:34:00 Test Item Value Reference Range Interpretation Comments NA (test code = 138 mmol/L 135-145 [id number]) K (test code = 3.7 mmol/L 3.5-5 1839258099) CL (test code = 108 mmol/L 98-108 6594460701) CO2 TOTAL (test code = 25 mmol/L 23-31 1712468648) AGAP (test code = 2-16 2840320771) BUN (test code = 9 mg/dL 7-23 3230847403) GLUCOSE (test code = 107 mg/dL 70-110 7488371084) CREATININE (test code 0.96 mg/dL 0.6-1.25 = 6115822433) CALCIUM (test code = 8.7 mg/dL 8.6-10.6 6616205489) eGFR Calculation mL/min/1.73m2 (Non-) (test code = 0364343205) eGFR Calculation mL/min/1.73m2 () (test code = 5507671245) GILBERTO (test code = GILBERTO) [employer] [...] or urine or abnormalities in imaging tests). [facility] AmericaMagnesium [id number] 08:33:00 Test Item Value Reference Range Interpretation Comments MAGNESIUM (test code = 1.9 mg/dL 1.7-2.4 Sligh t hemolysis 4364804535) Lab Interpretation (test Normal code = 09462-5) [facility] AmericaXR [id number] 06:18:53 Redemonstration of marked gaseous distention of the transverse anddescending colon. RL: 460 AFC: 50580 Ordering physician: HELENE GRIFFIN INDICATION: Abdominal pain COMPARISON: CT the abdomen and pelvis dated 01/24/2020 FINDINGS:Supine AP views of the abdomen and pelvis. There isredemonstration of marked distention of the transverse and descendingcolon. [facility], Radiant Results Inft User - 01/26/2020 1:20 AM CDTOrdering physician: HELENE GRIFFININDICATION: Abdominal painCOMPARISON: CT the abdomen and pelvis dated 01/24/2020FINDINGS: Supine AP views of the abdomen and pelvis. There isredemonstration of marked distention of the transverse and descendingcolon.IMPRESSIONRedemonstration of marked gaseous distention of the transverse anddescending colon.RL: 460AFC: 36044Dywgnrzrstyjbo signed by Angeli Carrillo MD, PhD at 01/26/2020 1:18 [facility]MSur[facility] Phosphorus [id number] 10:11:00 Test Item Value Reference Range Interpretation Comments PHOSPHORUS (test code = 8670685552) 3.9 mg/dL 2.5-5 Lab Interpretation (test code = Normal 60912-1) [facility] AmericaCOVID-19 (ID NOW RAPID TESTING)2020-01-25 05:12:00 Test Item Value Reference Range Interpretation Comments SARS-CoV-2 Rapid ID NOW Not Detected Not Detected (test code = 70146-2) GILBERTO (test code = GILBERTO) ID NOW COVID-19 Assay is an isothermal nucleic acid amplification test intended for the qualitative detection of nucleic acid from SARS-CoV-2 viral RNA in nasopharyngeal (FLOAT BUILDER) specimens. It is used under Emergency Use [...] indicated. Lab Interpretation Normal (test code = 94633-7) [facility] AmericaLactic Acid Whole [id number] 04:34:00 Test Item Value Reference Range Interpretation Comments LACTIC ACID (test code = 0.89 mmol/L 0.5-2.2 5281909457) [facility] AmericaCT ABDOMEN PELVIS W [id number] 02:47:02Impression: Marked distention and dilatation of the [...] bowel as well. Rectal tubedecompression may be considered.[facility] BjnutmOuyhztfmps5420-54-52 01:51:00 Test Item Value Reference Range Interpretation Comments APPEARANCE (test code = Hazy Clear A 9914966450) COLOR (test code = Yellow Yellow 7811712744) PH (test code = 4.8-8.0 4148521218) SP GRAVITY (test code = 1.003-1.030 9839019383) GLU U QUAL (test code = Normal Normal 5313212178) BLOOD (test code = Negative Negative 2061906321) KETONES (test code = Negative Negative 3250366588) PROTEIN (test code = Negative Negative 2887-8) UROBILIN (test code = Normal Normal 9020959716) BILIRUBIN (test code = Negative Negative 5855748947) NITRITE (test code = Negative Negative 7021668288) LEUK ROGER (test code = Negative Negative 9104232051) RBC/HPF (test code = See_Comment H [Autom ated message] 1675380230) The system niiu generated this result transmitted ref erence range: 0 - 3 HP F. The reference range was not used to int erpret this result as normal/abnormal . WBC/HPF (test code = See_Comment [Autom ated message] 5067680442) The system niiu generated this result transmitted ref erence range: 0 - 5 HP F. The reference range was not used to int erpret this result as normal/abnormal . BACTERIA (test code = Negative Negative 2105233164) SQ EPITH (test code = <1 See_Comment [Auto mated message] 2773515639) The system niiu generated this result transmitted ref erence range: <=2 HPF. The reference range was not used to int erpret this result as normal/abnormal . CA OXALATE (test code = See_Comment H [Au tomated message] 2803174400) The system niiu generated this result transmitted ref erence range: <=1 HPF. The reference range was not used to int erpret this result as normal/abnormal . Lab Interpretation (test Abnormal code = 34558-3) [facility] Metabolic Panel (NA, K, CL, CO2, GLUCOSE, BUN, CREATININE, CA)2020-01-25 01:01:00 Test Item Value Reference Range Interpretation Comments NA (test code = 139 mmol/L 135-145 9131039994) K (test code = 4.6 mmol/L 3.5-5 Slight hemoly sis 0329766968) CL (test code = 107 mmol/L 98-108 2297231181) CO2 TOTAL (test 26 mmol/L 23-31 code = 8044376937) AGAP (test code = 2-16 2494290173) BUN (test code = 23 mg/dL 7-23 Slight hemo lysis 8328584310) GLUCOSE (test code 94 mg/dL 70-110 = 2036718203) CREATININE (test 1.13 mg/dL 0.6-1.25 code = 3049608106) CALCIUM (test code 8.9 mg/dL 8.6-10.6 = 3352068890) eGFR Calculation mL/min/1.73m2 (Non-) (test code = 5763557386) eGFR Calculation mL/min/1.73m2 () (test code = 8487694898) GILBERTO (test code = Association of GILBERTO) [...] or urine or abnormalities in imaging tests). [facility] AmericaHepatic Function Panel (ALB, T.PRO, BILI T, BU/BC, ALT, AST, ALK PHOS)2020-01-25 01:01:00 Test Item Value Reference Range Interpretation Comments TOTAL BILI (test code = 4884499229) 0.7 mg/dL 0.1-1.1 BILI UNCON (test code = 9286421086) 0.6 mg/dL 0.1-1.1 BILI CONJ (test code = 8799523411) 0.0 mg/dL 0-0.3 T PROTEIN (test code = 3870789260) 6.2 g/dL 6.3-8.2 L ALBUMIN (test code = 6516506509) 4.1 g/dL 3.5-5 ALK PHOS (test code = 4704393680) 46 U/L 34-122 ALTv (test code = 1742-6) 27 U/L 5-50 AST(SGOT) (test code = 6487586592) 31 U/L 13-40 Lab Interpretation (test code = Abnormal 76058-0) [facility] AmericaLipase [id number] 01:01:00 Test Item Value Reference Range Interpretation Comments LIPASE (test code = 1655732247) 246 U/L 0-220 H Lab Interpretation (test code = Abnormal 23193-2) [facility] AmericaCB WITH [id number] 00:49:00 Test Item Value Reference Range Interpretation Comments WBC (test code = See_Comment [Automated 6690-2) message] The sy stem which generated this result transmitted reference range : 4.20 - 10.70 10*3/?L. The reference range was not used to interpret this result as normal/abnormal . RBC (test code = See_Comment L [Automated 159-8) message] The sy stem which generated this [...] RDW-SD (test code = 46.8 fL 38.5-51.6 44621-9) RDW-CV (test code = 14.2 % 12.1-15.4 788-0) PLT (test code = See_Comment [Automated 777-3) message] The sy stem which generated this result transmitted reference range : 150 - 328 10*3/ ?L. The reference r meredith was not used to interpret this result as normal/abnormal . MPV (test code = 10.7 fL 9.8-13 73578-5) NRBC/100 WBC (test See_Comment [Automat ed code = 3437649673) message] The system which generated this result transmitted reference range : 0.0 - 10.0 /100 WBCs. The refer ence range was not u sed to interpret th is result as normal/abnormal . NRBC x10^3 (test code <0.01 See_Comment [Auto mated = 5762343587) message] The s ystem which generated this result transmitted reference range : 10*3/?L. The reference range was not used to interpret this result as normal/abnormal . GRAN MAT (NEUT) % 56.9 % (test code = 770-8) IMM GRAN % (test code 0.20 % = 3261577967) LYMPH % (test code = 31.2 % 736-9) MONO % (test code = 9.7 % 5905-5) EOS % (test code = 1.6 % 713-8) BASO % (test code = 0.4 % 706-2) GRAN MAT x10^3(ANC) 2.86 10*3/uL 1.99-6.95 (test code = 7980910078) IMM GRAN x10^3 (test <0.03 0-0.06 code = 3251589650) LYMPH x10^3 (test code 1.57 10*3/uL 1.09-3.23 = 731-0) MONO x10^3 (test code 0.49 10*3/uL 0.36-1.02 = 742-7) EOS x10^3 (test code = 0.08 10*3/uL 0.06-0.53 711-2) BASO x10^3 (test code <0.03 0.01-0.09 = 704-7) Lab Interpretation Abnormal (test code = 38309-7) [facility]- XR ABDOMEN 1 [id number] 07:32:00 Name: DORA MCNEILL [place] : 1970 Age/S: 49 / M [address] Unit #: [id number] Loc: [place] [address] Phys: Jay Mayo MD Acct: [id number] Dis Date: Status: ADM IN PHONE #: [phone] Exam Date: 01/10/2020 0658 FAX #: Reason: follow up colonic ileus EXAMS:CPT: [id number] XR ABDOMEN 1 V 73847 Fluoro Time: DAP (Gy m2): Air Kerma [...] unchanged. at 0732 Reported and signed by: Montserrat Santacruz MD CC: Jay Mayo MD; Mark Perea MD PAGE 1 Signed Report Name: DORA MCNEILL [place] : 1970Age/S: 49 / M [facility] [address] Unit #: [id number] Loc: [place] [address] Phys: Jay Mayo MD Acct: [id number] Dis Date: Status: ADM IN PHONE #: [phone] Exam Date: 01/10/2020 0658 FAX#: Reason: follow up colonic ileus EXAMS: CPT: [id number] XR ABDOMEN 1 V 83608 Fluoro Time: DAP (Gy m2): Air Kerma (mGy): <Continued> Technologist: Bakari De Leon RT(R)(CT) Trnscb Date/Time: 01/10/2020 (0732) GarettCB5 Orig Print D/T: S: 01/10/2020 (0736) PAGE 2 Signed ReportCOMPREHENSIVE METABOLIC [id number] 05:56:00 Test Item Value Reference Range Interpretation [...] TOTAL (test code = ALKP) CBC W/AUTO [id number] 05:42:00 Test Item Value Reference Range Interpretation [...] = NO DIFF/SCN CRITERIA MDIFF) BASIC METABOLIC [id number] 06:59:00 Test Item Value Reference Range Interpretation [...] code = CA) 8.5 MG/DL 8.5-10.1 N [id number] 06:59:00 Test Item Value Reference Range Interpretation Comments MAGNESIUM (test code = MAG) 2.2 MG/DL 1.8-2.4 PROTHROMBIN [id number] 06:39:00 Test Item Value Reference Range Interpretation Comments PT PATIENT (test code = PTP) 13.1 SECONDS 9.3-12.9 H INTERNATIONAL NORMAL RATIO 1.16 INR Unit 0.8-1.2 N (test code = INR) CBC W/AUTO [id number] 06:22:00 Test Item Value Reference Range Interpretation [...] DIFF/SCN CRITERIA MDIFF) - XR ABDOMEN 1 [id number] 05:39:00 Name: DORA MCNEILL [place] : 1970 Age/S: 49 / M [address] Unit #: [id number] Loc: [place] [address] 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 Acct: [id number] Dis Date: Status: ADM IN PHONE #: [phone] Exam Date: 01/09/2020522 FAX #: Reason: colonic ileus/obstruction EXAMS: CPT: [id number] XR ABDOMEN 1 V 40354 Fluoro Time: DAP (Gy m2): Air Kerma [...] PAGE 1 Signed Report Name: DORA MCNEILL [place] : 1970 Age/S: 49 / M [address] Unit #: [id number] Loc: [place] [address] 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 Acct: [id number] Dis Date: Status: ADM IN PHONE #: [phone] Exam Date: 01/09/2020522 FAX #: Reason: colonic ileus/obstruction EXAMS: CPT: [id number] XR ABDOMEN 1 V 33593 Fluoro Time: DAP (Gy m2): Air Kerma (mGy): <Continued> Technologist: Carrie Barnett, RT(R)(CT) Trnscb Date/Time: 01/09/2020 (0539) tDARWINR.FC Orig Print D/T: S: 01/09/2020 (0551)PAGE 2 Signed ReportCoronavirus 2018 nCoV [id number] 22:38:00 Test Item Value Reference Range Interpretation Comments Coronavirus 2019 nCoV Bedside (test Negative Negative code = ZISGP12VGSJH) Emergent procedure? YESCoronavirus 2018 nCoV Vpkgiuf9579-86-06 22:38:00 Test Item Value Reference Range Interpretation Comments Coronavirus 2019 nCoV Bedside (test Negative Negative code = HZKJV51RKGBO) Emergent procedure? YESBASIC METABOLIC [id number] 18:42:00 Test Item Value Reference Range Interpretation [...] CA) 8.5 MG/DL 8.5-10.1 N CBC W/AUTO [id number] 10:50:00 Test Item Value Reference Range Interpretation [...] = NO DIFF/SCN CRITERIA MDIFF) COMPREHENSIVE METABOLIC [id number] 10:46:00 Test Item Value Reference Range Interpretation [...] 50-136 N TOTAL (test code = ALKP) [id number] 10:46:00 Test Item Value Reference Range Interpretation Comments MAGNESIUM (test code = MAG) 2.6 MG/DL 1.8-2.4 H COMPREHENSIVE METABOLIC [id number] 10:34:00 Test Item Value Reference Range Interpretation [...] TOTAL (test Unit/L 50-136 code = ALKP) [id number] 10:34:00 Test Item Value Reference Range Interpretation Comments MAGNESIUM (test code = MAG) MG/DL 1.8-2.4 - XR ABDOMEN 1 [id number] 08:28:00 Name: DORA MCNEILL [place] : 1970 Age/S: 49 / M [address] Unit #: [id number] Loc: [place] [address] Phys: Yas Edwards MD Acct: [id number] Dis Date: Status: ADM IN PHONE #: [phone] Exam Date: 01/08/2020509 FAX #: Reason: ileus EXAMS: CPT: [id number] XR ABDOMEN 1V 01702 Fluoro Time: DAP (Gy m2): Air Kerma [...] PAGE 1 Signed Report Name: DORA MCNEILL [place] : 1970 Age/S: 49 / M [address] Unit #: [id number] Loc: [place] [address] Phys: Yas Edwards MD Acct: [id number] Dis Date: Status: ADM IN PHONE #: [phone] Exam Date: 01/08/2020509 FAX #: Reason: ileus EXAMS: CPT: [id number] XR ABDOMEN 1 V 08970 Fluoro Time: DAP (Gy m2): Air Kerma (mGy): <Continued> Technologist: Carrie Barnett, RT(R)(CT); ... Trnscb Date/Time: 01/08/2020 (827) tDARWINR.JTM Orig Print D/T: S: 01/08/2020 (830) PAGE 2 Signed ReportCOMPREHENSIVE METABOLIC [id number] 07:08:00 Test Item Value Reference Range Interpretation [...] 50-136 L TOTAL (test code = ALKP) [id number] 07:08:00 Test Item Value Reference Range Interpretation Comments MAGNESIUM (test code = MAG) 1.3 MG/DL 1.8-2.4 L COMPREHENSIVE METABOLIC [id number] 05:16:00 Test Item Value Reference Range Interpretation [...] 50-136 L TOTAL (test code = ALKP) [id number] 05:16:00 Test Item Value Reference Range Interpretation Comments MAGNESIUM (test code = MAG) 1.3 MG/DL 1.8-2.4 L CBC W/AUTO [id number] 05:02:00 Test Item Value Reference Range Interpretation [...] (test code = NO DIFF/SCN CRITERIA MDIFF) [id number] 16:51:00 Test Item Value Reference Range Interpretation Comments MAGNESIUM (test code = MAG) 2.3 MG/DL 1.8-2.4 N FE W/TOTAL IRON BINDING CAP.2020-01-07 16:51:00 Test Item Value Reference Range Interpretation Comments SERUM IRON (test code = IRON) 38 mcG/DL 65-175 L TOTAL IRON BINDING CAPACITY (test 322 mcG/DL 250-450 N code = TIBC) IRON SATURATION (test code = 12 % calc 12-57 N FESAT) [id number] 16:51:00 Test Item Value Reference Range Interpretation Comments FERRITIN (test code = DAVID) 17.6 NG/ML 5.0-323.0 N CALCIUM [id number] 16:50:00 Test Item Value Reference Range Interpretation Comments CALCIUM IONIZED (test code = NAVEED) 1.12 mmol/L 1.12-1.32 N - XR ABDOMEN 1 [id number] 10:29:00 Name: DORA MCNEILL [place] : 1970 Age/S: 49 / M [address] Unit #: [id number] Loc: [place] [address] Phys: Verona Frost PA-C Acct: [id number] Dis Date: Status: ADM IN PHONE #: [phone] Exam Date: 01/07/2020 0712 FAX #: Reason: reassess SBO EXAMS: CPT: [id number] XRABDOMEN 1 V 06373 Fluoro Time: DAP (Gy m2): Air Kerma [...] PAGE 1 Signed Report Name: DORA MCNEILL [place] : 1970 Age/S: 49 / M [address] Unit #: [id number] Loc: [place] [address] Phys: Verona Frost PA-C Acct: [id number] Dis Date: Status: ADM IN PHONE #: [phone] Exam Date: 01/07/2020711 FAX #: Reason: reassess SBO EXAMS: CPT: [id number] XR ABDOMEN 1 V 74575 Fluoro Time: DAP (Gy m2): Air Kerma (mGy): <Continued> Technologist: Bakari De Leon RT(R)(CT) Trnscb Date/Time: 01/07/2020 (9706) t.SDR.AGV Orig Print D/T: S: 01/07/2020 (4573) PAGE 2 Signed ReportBASIC METABOLIC PANEL 2020-01-07 [...] CA) 5.4 MG/DL 8.5-10.1 LL CBC W/AUTO [id number] 06:49:00 Test Item Value Reference Range Interpretation [...] = NO DIFF/SCN CRITERIA MDIFF) COMPREHENSIVE METABOLIC [id number] 06:10:00 Test Item Value Reference Range Interpretation [...] TOTAL (test code = ALKP) CBC W/AUTO [id number] 05:52:00 Test Item Value Reference Range Interpretation [...] DIFF/SCN CRITERIA MDIFF) - XR ABDOMEN 1 [id number] 01:30:00 Name: DORA MCNEILL [facility] : 1970 Age/S: 49 / M [address] Unit #: [id number] Loc: [place] [address] Phys: Ted Coleman NP Acct: [id number] Dis Date: Status: ADM IN PHONE #: [phone] Exam Date: 01/06/202099 FAX #: Reason: NG Tube Placement Verification EXAMS: CPT: [id number] XR ABDOMEN 1 V 80843 Fluoro Time: DAP (Gy m2): Air Kerma [...] M.D. CC: Mark Perea MD; Ted Coleman FLOAT BUILDER PAGE 1 Signed Report Name: DORA MCNEILL [facility] : 1970 Age/S:49 / M [address] Unit #: [id number] Loc: [place] [address] Phys: Ted Coleman NP Acct: [id number] Dis Date: Status: ADM IN PHONE #: [phone] Exam Date: 01/06/2020 0100 FAX #: Reason: NG Tube Placement Verification EXAMS: CPT: [id number] XR ABDOMEN 1 V 10708 Fluoro Time: DAP (Gy m2): Air Kerma (mGy): <Continued> Technologist: RT Tatum(R) Trnscb Date/Time: 01/06/2020 (129) Garett Orig Print D/T: S: 01/06/2020 (7086) PAGE 2 Signed Report- CT ABD PELVIS W/O [id number] 19:42:00 [place]: St: REG -- Name: OPALDORA [facility] : 1970 Age/S: 49/M [address] [facility] Unit: [id number] Loc: [place], [place] Phys: [place] [address] Acct: [id number] Dis Date: Status: REG ER PHONE #: [phone] Exam Date: 12/13/20191924 FAX #: [phone] Reason: pain EXAMS: CPT CODE: [id number] CT ABD PELVIS W/O CONT 67250 Examination: CT scan abdomen and pelvis without [...] ALMANZAR Trnscrd Dt/Tm: 12/13/2019 (1941) tDARWINR.VR5 Orig Prin t D/T: S: 12/13/2019 (5 PAGE 1 Signed ReportBASIC METABOLIC [id number] 18:49:00 Test Item Value Reference Range Interpretation [...] code = CA) 8.6 mg/dl 8.0-10.5 N [id number] 18:49:00 Test Item Value Reference Range Interpretation Comments LIPASE (test code = LIP) 97 Units/L 65.0-230.0 N CBC W/AUTO [id number] 18:38:00 Test Item Value Reference Range Interpretation [...] K/mm3 0.0-0.2 N - XR CHEST 1 [id number] 18:36:00 [place]: St: PRE -- Name: DORA MCNEILL [facility] : 1970 Age/S: 49/M [address] [place] [address] [facility] Unit #: [id number] Loc: [place], [place] Phys: [place] [address] Acct: [id number] Dis Date: Status: PRE ER PHONE #: [phone] Exam Date: 12/13/20191821 FAX #: [phone] Reason: SOB EXAMS: CPT CODE: [id number] XR CHEST 1 V 77963 Examination: One view chest x-ray Location code: H60 Comparison: None Discussion: Clinical history is remarkable for shortness of breath and weakness. Heart isnormal in size. Lungs are clear of consolidating infiltrates. No effusions identified. There is significant distention of the colon. Impression: 1. Normal one view chest x-ray. 2. Colonic distention. at 1836 Reported and signed by: SHANEL EDWARDS CC: Technologist: AMBER GENTILE Trncard Date/Time/By: 12/13/2019 (1835) : By: GarettVR5 PAGE 1 Signed Report [place]: [facility]: PRE ----- Name: DORA MCNEILL [facility] : 1970 Age/S: 49/M [address] [place] [address] [facility] Unit #: [id number] Loc: [place], [place] Phys: [place] [address] Acct: [id number] Dis Date: Status: PRE ER PHONE #: [phone] Exam Date: 12/13/2019 182 FAX #: [phone] Reason: SOB EXAMS: CPT CODE: [id number] XR CHEST 1 V 17813 (Continued) Orig Print D/T: S: 12/13/2019 (1839) PAGE 2 Signed ReportCBC W/PLT COUNT & AUTO [id number] 08:02:00 Test Item Value Reference Range Interpretation [...] Received comment: User comments: Slide comments:BASIC METABOLIC [id number] 07:34:00 Test Item Value Reference Range Interpretation [...] S NOT APPLICABLE FOR DIALYSIS PATIEN TS. [id number] 07:26:00 Test Item Value Reference Range Interpretation Comments PHOSPHORUS (BEAKER) (test code = 3.1 mg/dL 2.3-4.7 604) [id number] 07:26:00 Test Item Value Reference Range Interpretation Comments MAGNESIUM (BEAKER) (test code = 1.6 mg/dL 1.6-2.6 627) RAD, ABDOMEN/KUB, 1 VIEW [id number] 07:04:00Reason for exam:->ileusFINAL REPORT Abdomen , one [...] MDReport Verified Date/Time: 04/03/2019 07:04:46 Reading Location: [address] Ortho Consult Reading Room BASIC METABOLIC [id number] 06:47:00 Test Item Value Reference Range Interpretation [...] code = 413) URINALYSIS WITH MICROSCOPIC IF [id number] 22:01:00 Test Item Value Reference Range Interpretation [...] 463) SOURCE(BEAKER) (test code = 2795) URINALYSIS [id number] 22:01:00 Test Item Value Reference Range Interpretation Comments RBC UA (BEAKER) (test code = 519) 18 /HPF WBC UA (BEAKER) (test code = 520) 1 /HPF CALCIUM OXALATE CRYSTALS (BEAKER) Occasional (test code = 518) [id number] 05:49:00 Test Item Value Reference Range Interpretation Comments PHOSPHORUS (BEAKER) (test code = 2.5 mg/dL 2.3-4.7 604) [id number] 05:49:00 Test Item Value Reference Range Interpretation Comments MAGNESIUM (BEAKER) (test code = 1.7 mg/dL 1.6-2.6 627) BASIC METABOLIC [id number] 05:49:00 Test Item Value Reference Range Interpretation [...] (BEAKER) (test code = 413) BASIC METABOLIC [id number] 06:19:00 Test Item Value Reference Range Interpretation [...] S NOT APPLICABLE FOR DIALYSIS PATIEN TS. [id number] 06:10:00 Test Item Value Reference Range Interpretation Comments MAGNESIUM (BEAKER) 1.8 mg/dL 1.6-2.6 Specimen slightly (test code = 627) hemolyzed [id number] 06:10:00 Test Item Value Reference Range Interpretation [...] (BEAKER) (test code = 413) BASIC METABOLIC [id number] 04:57:00 Test Item Value Reference Range Interpretation [...] S NOT APPLICABLE FOR DIALYSIS PATIEN TS. [id number] 04:55:00 Test Item Value Reference Range Interpretation Comments PHOSPHORUS (BEAKER) (test code = 2.6 mg/dL 2.3-4.7 604) [id number] 04:55:00 Test Item Value Reference Range Interpretation Comments MAGNESIUM (BEAKER) (test code = 1.8 mg/dL 1.6-2.6 627) CT, [id number] 14:16:00FINAL REPORT TECHNIQUE: CT of the abdomen [...] Pope MDReport Verified Date/Time: 03/29/2019 14:16:01Reading Location: [facility] B1 C013Y CT Body Reading Room , ABDOMEN/KUB, 1 VIEW [id number] 10:23:00Reason for exam:->evaluate ileusFINAL REPORT Technique: Supine [...] Verified Date/Time: 03/29/2019 10:23:29 Reading Location: [facility] Reading Room CBC (HEMOGRAM ONLY)2019-03-29 08:10:00 Test [...] WBC 0-0 (BEAKER) (test code = 413) [id number] 06:20:00 Test Item Value Reference Range Interpretation Comments PHOSPHORUS (BEAKER) (test code = 2.6 mg/dL 2.3-4.7 604) [id number] 06:20:00 Test Item Value Reference Range Interpretation Comments MAGNESIUM (BEAKER) (test code = 2.0 mg/dL 1.6-2.6 627) BASIC METABOLIC [id number] 06:20:00 Test Item Value Reference Range Interpretation [...] TS. RAD, ABDOMEN SERIES W/ UPRIGHT PA [id number] 22:18:00Reason for exam:- >eval ileusFINAL REPORT CLINICAL [...] Date/Time: 03/28/2019 22:18:50 RAD, ABDOMEN/KUB, 1 VIEW [id number] 11:23:00Reason for exam:->abdominal distensionShould this be performed [...] [facility] Radiology Reading Room TISSUE [id number] 09:00:00Surgical Pathology Report Case: [id number] Authorizing Provider: Graciela Garrison MD Collected: 03/25/2019 1133 Ordering Location: [facility] PERIOPERATIVE Received: 03/25/2019 1527 SERVICES [...] FOR MALIGNANCY Signing Pathologist Direct Phone Line: [phone] signed by Priyanka Celaya MD on 03/28/2019 at 9:00 [id number] and postop diagnosis: ileostomy statusA. End ileostomy; [...] nodes are not identified in the mesentery. [employer] sections are submitted. Section code: A, delivery representative section of each end of first mentioned segment of small bowel; A2, delivery representative of first mentioned segment of small bowel mucosa; A3, area of hemorrhagic mesentery of second mentioned segment of mucosa; A4, delivery representative of hemorrhagic mucosa at open end of second portion of small bowel; A5, delivery representative of stapled margin from secondmentioned segment [...] 0.2 cm. No gross lesions are identified. [employer] sections are submitted. Section code: B1, proximal margin en face and tip; B2, delivery representative cross section. CG/pl Performed.[id number] 06:23:00 Test Item Value Reference Range Interpretation Comments PHOSPHORUS (BEAKER) (test code = 2.7 mg/dL 2.3-4.7 604) [id number] 06:23:00 Test Item Value Reference Range Interpretation Comments MAGNESIUM (BEAKER) (test code = 1.9 mg/dL 1.6-2.6 627) BASIC METABOLIC [id number] 06:23:00 Test Item Value Reference Range Interpretation [...] 697) EGFR (BEAKER) (test 96 mL/min/1.73 ESTIMA ADIN GFR IS code = 1092) sq m NOT ACCURATE CREATININE CLEARANCE IN PREDICTING GLOMERULAR FILTRATION RATE . ESTIMATED GFR I S NOT APPLICABLE FOR DIALYSIS PATIEN TS. [id number] 08:20:00 Test Item Value Reference Range Interpretation Comments PHOSPHORUS (BEAKER) (test code = 2.6 mg/dL 2.3-4.7 604) [id number] 08:20:00 Test Item Value Reference Range Interpretation Comments MAGNESIUM (BEAKER) (test code = 1.8 mg/dL 1.6-2.6 627) BASIC METABOLIC [id number] 08:20:00 Test Item Value Reference Range Interpretation [...] S NOT APPLICABLE FOR DIALYSIS PATIEN TS. [id number] 06:06:00 Test Item Value Reference Range Interpretation Comments PHOSPHORUS (BEAKER) (test code = 4.1 mg/dL 2.3-4.7 604) [id number] 06:06:00 Test Item Value Reference Range Interpretation Comments MAGNESIUM (BEAKER) (test code = 1.8 mg/dL 1.6-2.6 627) BASIC METABOLIC [id number] 06:06:00 Test Item Value Reference Range Interpretation [...] S NOT APPLICABLE FOR DIALYSIS PATIEN TS. [id number] 06:03:00 Test Item Value Reference Range Interpretation Comments PHOSPHORUS (BEAKER) (test code = 4.2 mg/dL 2.3-4.7 604) [id number] 06:03:00 Test Item Value Reference Range Interpretation Comments MAGNESIUM (BEAKER) (test code = 2.0 mg/dL 1.6-2.6 627) BASIC METABOLIC [id number] 06:03:00 Test Item Value Reference Range Interpretation [...] WBC 0-0 (BEAKER) (test code = 413) [id number] 05:52:00 Test Item Value Reference Range Interpretation Comments PHOSPHORUS (BEAKER) (test code = 4.2 mg/dL 2.3-4.7 604) [id number] 05:52:00 Test Item Value Reference Range Interpretation Comments MAGNESIUM (BEAKER) (test code = 1.9 mg/dL 1.6-2.6 627) BASIC METABOLIC [id number] 05:52:00 Test Item Value Reference Range Interpretation [...] S NOT APPLICABLE FOR DIALYSIS PATIEN TS. [id number] 06:51:00 Test Item Value Reference Range Interpretation Comments PHOSPHORUS (BEAKER) (test code = 4.3 mg/dL 2.3-4.7 604) [id number] 06:51:00 Test Item Value Reference Range Interpretation Comments MAGNESIUM (BEAKER) (test code = 2.0 mg/dL 1.6-2.6 627) BASIC METABOLIC [id number] 06:51:00 Test Item Value Reference Range Interpretation [...] 0-0 (BEAKER) (test code = 413) TISSUE [id number] 11:50:00Surgical Pathology Report Case: [id number] Authorizing Provider: Mela Larson MD Collected: 03/18/2019 1827 Ordering Location: [facility] PERI[facility] Received: 03/21/2019 0823 SERVICES Pathologist: Jordan Celaya MD Specimen: Small Bowel, NOS A. SMALL BOWEL, ILEOSTOMY PROLAPSE, TAKEDOWN: - ANASTOMOSIS SITE WITH ACTIVE CHRONIC INFLAMMATION AND FOCAL ISCHEMIC CHANGES - MUCOSAL RESECTION MARGINS, NEGATIVE FOR MALIGNANCY - ONE BENIGN LYMPH NODE (0/1) - NEGATIVE FOR DYSPLASIA OR MALIGNANCYSigning Pathologist Direct Phone Line: [phone] signed by Jordan Celaya MDon 03/22/2019 at 11:50 [id number] of ileostomyReceived in a container labeled "small [...] 0.5 to 1.2 cm in greatest dimension. [employer] sections are submitted as follows: A1-A2, mucosal resection margin, en face; A3-A6, delivery representative sections of the possible ostomy stump; A7-A11, serial delivery representative sections from mucosal resection margin to the possible ostomy stump; A12, two lymph nodes. TH/plPerformed.[id number] 06:58:00 Test Item Value Reference Range Interpretation Comments PHOSPHORUS (BEAKER) (test code = 3.8 mg/dL 2.3-4.7 604) [id number] 06:58:00 Test Item Value Reference Range Interpretation Comments MAGNESIUM (BEAKER) (test code = 2.0 mg/dL 1.6-2.6 627) BASIC METABOLIC [id number] 06:58:00 Test Item Value Reference Range Interpretation [...] PATIEN TS. CBC W/PLT COUNT & AUTO [id number] 05:42:00 Test Item Value Reference Range Interpretation [...] PERCENT (BEAKER) (test code = 2801) FL, [id number] 17:42:00Reason for exam:->evaluate for colon stricture as [...] MDReport Verified Date/Time: 03/21/2019 17:42:21 Reading Location: [facility] C013X Ortho Consult Reading Room [id number] 03:58:00 Test Item Value Reference Range Interpretation Comments PHOSPHORUS (BEAKER) (test code = 3.0 mg/dL 2.3-4.7 604) [id number] 03:58:00 Test Item Value Reference Range Interpretation Comments MAGNESIUM (BEAKER) (test code = 2.0 mg/dL 1.6-2.6 627) BASIC METABOLIC [id number] 03:58:00 Test Item Value Reference Range Interpretation [...] PATIEN TS. CBC W/PLT COUNT & AUTO [id number] 03:20:00 Test Item Value Reference Range Interpretation [...] (BEAKER) (test code = 2801) BASIC METABOLIC [id number] 06:26:00 Test Item Value Reference Range Interpretation [...] S NOT APPLICABLE FOR DIALYSIS PATIEN TS. [id number] 06:05:00 Test Item Value Reference Range Interpretation Comments PHOSPHORUS (BEAKER) (test code = 2.2 mg/dL 2.3-4.7 L 604) [id number] 06:05:00 Test Item Value Reference Range Interpretation Comments MAGNESIUM (BEAKER) (test code = 2.0 mg/dL 1.6-2.6 627) CBC W/PLT COUNT & AUTO [id number] 05:25:00 Test Item Value Reference Range Interpretation [...] 0-1 PERCENT (BEAKER) (test code = 2801) [id number] 04:31:00 Test Item Value Reference Range Interpretation Comments PHOSPHORUS (BEAKER) (test code = 3.7 mg/dL 2.3-4.7 604) [id number] 04:31:00 Test Item Value Reference Range Interpretation Comments MAGNESIUM (BEAKER) (test code = 1.9 mg/dL 1.6-2.6 627) BASIC METABOLIC [id number] 04:31:00 Test Item Value Reference Range Interpretation [...] PATIEN TS. CBC W/PLT COUNT & AUTO [id number] 04:15:00 Test Item Value Reference Range Interpretation [...] 0-1 PERCENT (BEAKER) (test code = 2801) [id number] 06:41:00 Test Item Value Reference Range Interpretation Comments PHOSPHORUS (BEAKER) (test code = 3.1 mg/dL 2.3-4.7 604) [id number] 06:41:00 Test Item Value Reference Range Interpretation Comments MAGNESIUM (BEAKER) (test code = 1.9 mg/dL 1.6-2.6 627) BASIC METABOLIC [id number] 06:41:00 Test Item Value Reference Range Interpretation [...] PATIEN TS. CBC W/PLT COUNT & AUTO [id number] 06:36:00 Test Item Value Reference Range Interpretation [...] PERCENT (BEAKER) (test code = 2801) CT, [id number] 17:04:00No PO contrastFINAL REPORT ABDOMINAL AND PELVIS [...] Verified Date/Time: 03/17/2019 17:04:19 Reading Location: [facility] C013Y CT Body Reading Room XR ABDOMEN 2 [id number] 09:03:45XR ABDOMEN 2 VIEWSLOCATION: [id number]: Colstomy ProlapseCOMPARISON: Chest radiograph 04/15/2017, CT of [...] Nonspecific, nonobstructive bowel gas pattern.XR CHEST 1 [id number] 11:32:15EXAM: CHEST ONE VIEWINDICATION: Chest painCOMPARISON: None availableTECHNIQUE: AP view of the chest.FINDINGS: The cardiomediastinal silhouette is normal. The lungs are clearbilaterally. No pneumothoraxor pleural effusion is identified. Theosseous structures are unremarkable.IMPRESSION: No acute cardiopulmonary process.LOCATION: [id number] Type and [id number] 21:21:00 Test Item Value Reference Range Interpretation Comments ABO type (test code = ABO) O Rh Type (test code = RH) Positive Comprehensive Metabolic [id number] 20:36:00 Test Item Value Reference Range Interpretation [...] the National Kidney Foundation,http ://nkd ep.nih.gov Alcohol/Ethanol, [id number] 20:36:00 Test Item Value Reference Range Interpretation Comments Alcohol, Ethyl <0.01 g/dL 0.00-0.01 N Intoxicated 0 .080 g/dL (test code = ETOH) or more Prothrombin [id number] 20:00:00 Test Item Value Reference Range Interpretation Comments PT (test code = PT) 10.10 seconds 9.78-13.35 N INR (test code = INR) 0.88 Ratio 0.6-1.2 N Partial Thromboplastin [id number] 20:00:00 Test Item Value Reference Range Interpretation Comments aPTT (test code = PTT) 31.50 seconds 24.39-37.25 N CBC with [id number] 19:50:00 Test Item Value Reference Range Interpretation [...] code = ALYMPH) 2.2 K/cumm 0.5-4.6 N Dawson Abs (test code = AMONO) 0.4 K/cumm 0.0-1.2 N Eos Abs (test code = AEOS) 0.17 K/cumm 0.00-0.74 N Baso Abs (test code = ABASO) 0.0 K/cumm 0.00-0.21 N 31052& PELVIS W/O [id number] 17:36:28CT ABDOMEN AND PELVIS WITHOUT CONTRAST.CLINICAL HISTORY: [...] different fro m the original. Internal Medicine [facility] 21:22:43-00:00 [facility] Internal Medicine - [facility] Admit Y Admission History & Physical for [facility] System Patient admitted by Fannie Blake MD ([facility] Admitter Y). For any questions until 12AM on 02/19/2022, please page [phone]. After 12AM, please contact [facility] at [phone]. Thank you! Patient name: Dora Mcneill Date of admission: 02/18/2022 1:58 PM LOS: 0 days Room: CRITICAL CARE HW/CC- * Assessment & Plan: Dora Mcneill is [...] home when sym ptoms/vitals/cr/lytres Fannie Blake MD Professor Of Visual Arts Section of General Internal Medicine, [facility] HHS [place] [id number] No future appointments. Chief Complaint: ostomy supplies, [...] Mood and affect appropriate Data: Reviewed in [facility] 2022-02-07 Formatting of this note is different from the or iginal. [facility] 19:39:59-00:00 ADMISSION HISTORY AND PHYSICAL S [facility] HOSPITALIST Y ADMITTER HAO 5 Patient is admitted by HAO Gandhi on the night of 02/07. To reach the covering provider please page HAO Y until Midnight. After Midnight, please page HAO Night or call [phone]. Chief Complaint: Increased ostomy output HPI: Dora [...] tomorrow, telemetry, HOT 5 Jian Schmitt M.D. Professor Of Visual Arts, Internal Medicine [facility]# [id number] February 07, 2022 7:50 PM Procedure Notes Date/Time Note Provider Source 2022-02-19 Formatting of this note might be differe nt from the original. Brittani Mccain RN [facility] 06:40:13-00:00 Vascular Access team consult ed [...] differe nt from the original. Jian Ambriz [facility] 14:48:15-00:00 Pt saying he has not urinate d in 6 days. Bladder scanned pt- 32mL scanned in center of bladder. Jeremy RN 2023-03-20 Formatting of this note might be differe nt from the original. Inez Brock RN [facility] 14:23:50-00:00 [facility] for c/o dizzin ess, lightheaded that started an hour ago. Patient [place] when symptoms began. Additional c/o 4-5 without urine output. History of colostomy rever misael one month ago. 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 VSS. AAO x 4, GCS 15. 2023-03-20 Associated Order(s): EKG-12 Lead ROUTINE ONCE [facility] 14:22:00-00:00 Pre-Procedure Diagnose(s): Dehydration Post-Procedure Diagnose(s): Dehydration Formatting of this note is different from the or iginal. [facility] Emergency Department Note Patient Name: Dora Mcneill Date of : 1970 53 year old male Treatment Room: [facility] Primary Care Physician: PATIENT DOES NOT HAVE [...] 12/04/2022 Surgeon: Bia Pedro MD; Location: [facility] OR LOCATION BOWEL RESECTION N/A 11/23/2016 Surgeon: Marco Christensen MD; Location: [facility] OR Location BOWEL RESECTION Right 01/06/2019 Surgeon: Constantin Savage MD; Location: [facility] OR Location COLECTOMY N/A 04/03/2020 Surgeon: Bia Perdo MD; Location: [facility] OR Location COLONOSCOPY N/A 09/27/2016 Surgeon: Ryan Broderick MD; Location: [facility] OR Location COLONOSCOPY Lower 10/07/2016 Surgeon: Ryan Broderick MD; Location: [facility] OR Location COLONOSCOPY N/A 04/03/2020 Surgeon: Bia Pedro MD; Location: [facility] OR Location COLONOSCOPY N/A 12/04/2022 Surgeon: Bia Pedro MD; Location: [facility] OR LOCATION COLOSTOMY REVISION N/A 11/23/2016 Surgeon: Marco Christensen MD; Location: [facility] OR Location COLOSTOMY REVISION N/A 09/03/2021 Surgeon: Bia Pedro MD; Location: [facility] OR LOCATION EXAMINATION UNDER ANESTHESIA 09/30/2012 Surgeon: Lewis Feliz MD; Location: [facility] OR LOCATION EXPLORATORY LAPAROTOMY 2001 for volvulus repair about 15 years ago EXPLORATORY LAPAROTOMY N/A 10/17/2016 Surgeon: Yessica Leach MD; Location: [facility] OR Location EXPLORATORY LAPAROTOMY N/A 04/06/2020 Surgeon: Juventino Mccabe MD; Location: [facility] OR Location ILEOSTOMY N/A 10/08/2016 Surgeon: Ryan Broderick MD; Location: [facility] OR Location ILEOSTOMY Right 01/06/2019 Surgeon: Constantin Savage MD; Location: [facility] OR Location ILEOSTOMY TAKEDOWN N/A 12/04/2022 Surgeon: Bia Pedro MD; Location: [facility] OR LOCATION LAPAROSCOPIC COLECTOMY N/A 04/03/2020 Surgeon: Bia Pedro MD; Location: [facility] OR Location PROCTOSCOPY 09/30/2012 Surgeon: Lewis Feliz MD; Location: [facility] OR LOCATION RECTAL BIOPSY 09/30/2012 Surgeon: Lewis Feliz MD; Location: [facility] OR LOCATION Review of Systems: Review of [...] Status: He is alert. Mental status is at baseline. Cranial Nerves: No cranial nerve deficit. [...] 0.01 - 0.09 10*3/uL COMP. METABOLIC PANEL (79518) - Abnormal NA 141 135 - 145 [...] Procedures CBC WITH DIFF COMP. METABOLIC PANEL (12865) Lactic Acid Whole Blood Lactic Acid Whole Blood CREATINE KINASE LIPASE ETHANOL Orders Placed This Encounter Medications NaCl 0.9% (NS) bolus infusion 2,000 mL First Provider Eval: ED Events Date/Time Event User Comments 03/20/23 1503 Medical Screening Begins SABI ROBLEDO MD -- 03/20/23 150 First Provider Evaluation SABI CAMACHO -- ED COURSE Diagnosis/Impression as of 03/20/23 1724 Dehydration Procedures: EKG-12 Lead ROUTINE ONCE Date/Time: 03/20/2023 3:40 PM Performed by: Sabi Robledo MD Authorized by: Sabi Robledo MD ECG reviewed by ED Physician in the absence of a instrument and electrical technician: yes Interpretation: Interpretation: non-specific Rate: ECG rate: 65 ECG rate assessment: normal Rhythm: Rhythm: sinus rhythm Ectopy: Ectopy: none QRS: QRS axis: Normal QRS intervals: Normal QRS conduction: normal ST segments: ST segments: Normal T waves: T waves: normal MDM: Medical Decision Making [facility] of [facility] and lightheaded. [...] on file Follow-up: Contact information for follow-up [facility] [address], [facility] [address] [id number] Electronically signed by: Sabi Robledo MD 03/20/23 1724 Electronically signed by Sbai Robledo MD at 0 03/20/2023 5:24 PM CDT 2023-01-27 [facility] 11:14:00-00:00 [facility] ([facility]) EMERGENCY PROVIDER REPORT REPORT#:[id number] REPORT STATUS: Signed DATE:01/27/23 TIME: 1114 PATIENT: HOANG MCNEILL UNIT #: [id number] ROOM/BED: AGE: 52 SEX: M PCP PHYS: No Primary or Family Ph ysician SERVICE AUTHOR: Anne Marie Cameron MD * ALL edits or amendments must be made on the [employer]/computer document * HPI-Abd Pain M 40 and [...] about 5 months ago, but performed at [facility], patient is unsure of surgeons' eddie hale. General Initial Greet Date/Time 01/27/23 0901 Presentation [...] (ZOFRAN ODT) 4 MG PO Q6H PRN ID N NAUSEA/VOMITING #15 TABS Prov: 09/23/21 Calculated [...] Delivery Room air 01/27 0859 Temp 36.8 01/27 0859 Pulse 79 / 0859 Resp 18 01/27 0859 Last Documented: Result Date Time Temp 36.9 01/27 1452 Pulse Ox 100 01/27 1430 B/P 99/61 01/27 1430 B/P Mean 76 01/27 1430 Pulse 58 /06 1430 O2 Delivery [...] # (0.9 - 3.0 k/mm3) 1.50 POC Dawson # (0.2 - 1.1 10 3/uL) 0.6 POC Lymphocytes % (16.8 - 42.5 %) 20.8 POC Neutrophils % (46.4 - 74.7 %) 71.0 Recent Impressions: CAT SCAN - CT ABD PELVIS W/CONT 01/27 1045 Report Impression - Status: SIGNED Entered: 01/27/2023 1116 IMPRESSION: 1. Postoperative changes of colectomy with anast omotic sutures at the sigmoid colon. There is [...] but still consider partial SBO. 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 Obtain blood work, urine, CT scan. Will provide pain co ntrol, antiemetic, IV fluids and reassess )( Re-Evaluation/Progress #1 Text/Dict Note Labs only remarkable for mild hypokalemia, p.o. replacement given. CT with dilation of loops of small bowel, with possible ileus versus obstruction. Discussed results with patient. Will initiate edna ceron back to [facility] for continuity of care, as is that is [facility] patient has had previous abdominal surgeries. Transfer [...] 75 ML .STK-MED ONE 01/27 1036 DC IV 01/27 1037 1036 Electrolytic, Caloric, And [...] 4 MG X1ED STA 01/27 1018 DC PO 01/27 1019 1025 Patient Discharge Departure Vital Signs/Condition Vital Signs First Documented: Result Date Time Pulse Ox 100 01/27 0859 B/P 116/73 01/27 0859 B/P Mean 87 01/27 0859 O2 Delivery Room air 01/27 0859 Temp 36.8 01/27 0859 Pulse 79 / 0859 Resp 18 01/27 0859 Last Documented: Result Date Time Temp 36.9 / 1452 Pulse Ox 100 / 1430 B/P 99/61 06/ 1430 B/P Mean 76 01/27 1430 Pulse 58 / 1430 O2 Delivery Room air 01/27 0859 Resp 18 01/27 0859 All vital signs available at the time of this en try have been reviewed. Clinical Impression Clinical Impression Primary Impression: Small bowel obstruction Secondary Impressions: Hypokalemia, Vomiting Disposition Decision Transfer )( Request Time 1155 )( Request Date 01/27/23 Spoke with: [facility]AL [facility]cho[facility] Transfer Accepted Yes Accepted by: [facility] )( Acceptance Time 1255 )( Acceptance Date 01/27/23 Transfer Reason CONTINUITY OF CARE Patient Status Stable for transfer Patient Informed Yes Consent Obtained yes Consent Signed by: patient Discharge/Care Plan Counseled Regarding Diagnosis, Lab resul ts, Imaging studies, Need for transfer at 1457 RPT #:[id number] END OF REPORT 2022-03-29 [facility] 14:35:00-00:00 [facility] ([facility] EMERGENCY PROVIDER REPORT REPORT#:[id number] REPORT STATUS: Signed DATE:03/29/22 TIME: 1435 PATIENT: HOANG MCNEILL UNIT #: [id number] ROOM/BED: AGE: 52 SEX: M PCP PHYS: No Primary or Family Ph ysician SERVICE AUTHOR: Sabi Urias MD * ALL edits or amendments must be made on the [employer] document * HPI-General Illness General Confirmed Patient [...] current colostomy, that is well-known to this fa cility as being homeless and living with in view of this facility, reports to the freestanding emergency department complaint of gene ralized fatigue and heat exhaustion and reports that he feels dehydrated. Patient denies inju ry, fever, chills, vomiting, diarrhea. Patient reports that he has been walking around a lot outside the [facility] area and feels like he is at [...] (ZOFRAN ODT) 4 MG PO Q6H PRN ID N NAUSEA/VOMITING #15 TABS Prov: 09/23/21 Additional [...] 1427 Temp 36.6 08/06 1427 Pulse 85 08/ 1427 Resp 16 08/ 1427 Last Documented: Result Date Time Pulse Ox 99 08/06 1427 B/P 108/66 08/06 1427 B/P Mean 80 08/06 1427 O2 Delivery Room air 08/ 1427 Temp 36.6 08/06 1427 Pulse 85 08/06 1427 Resp 16 03/29 1427 Review of Vital Signs Reviewed Physical [...] 1,000 ML X1ED STA 03/29 1428 DC / IV 03/29 1527 1449 Patient Discharge Departure Vital Signs/Condition Vital Signs First Documented: Result Date Time Pulse Ox 99 / 1427 B/P 108/66 08/ 1427 B/P Mean 80 08/ 1427 O2 Delivery Room air 08/ 1427 Temp 36.6 08/ 1427 Pulse 85 08/ 1427 Resp 16 03/29 1427 Last Documented: Result Date Time Pulse Ox 99 / 1427 B/P 108/66 / 1427 B/P Mean 80 08/ 1427 O2 Delivery Room air / 1427 Temp 36.6 08/ 1427 Pulse 85 08/06 1427 Resp 16 / 1427 All vital signs available at the [...] symptoms should prompt an immediate return to [facility] or the closest emergency department or a call to 911. Electronically Signed by Sabi Urias MD on 0 03/29/22 at 1753 RPT #:[id number] END OF REPORT 2022-03-13 Formatting of this note might be differe nt from the original. Sammi Carbajal RN [facility] 20:23:38-00:00 Dora Mcneill called [facility] waiting room and did not answer x 3. Patient name paged overhead within Emergency Department without response. Waiting room, ED care areas, and restrooms visualized and patient not found. System Electronically signed by Sammi Carbajal RN a t 03/13/2022 8:23 PM CDT 2022-03-13 Formatting of this note might be differe nt from the original. Physician Operating Manager [facility] 19:35:49-00:00 [employer] MSE System МАРИНА Alarcon March 13, 2022 7:35 PM Electronically signed by Alka Thorpe PA at 0 03/13/2022 7:35 PM CDT 2022-02-20 Formatting of this note might be differe nt from the original. Clemencia Arcos [facility] 11:47:00-00:00 Patient AVS and discharge in structions were given verbally and written, pt demonstrated understanding. Pt left walking with all belongings. No signs of distress noted at the time is discharge. RN Syst em Clemencia Arcos RN [id number] Problem: Hospital Acquired Venous Thromboembolis m (VTE) [...] fro m the original. Bao Goodman RN [facility] 08:11:24-00:00 System 02/20/22 0811 Intervention Coordination of Care Multidisciplinary team Disease Management Meets criteria for Inpatient Medical Necessity Screening Admission review 02/20/22 0810 Hospital Review- Suggested Patient Class- Enter a Bed Request for Patient Suggested Patient Class Inpatient Level of Care: Acute (Inpatient-Floor) Classification: Med Isolation: None Hospital Review Review # [id number] Hospital Review- Team/Provider Assigned Team Assigned Moe Leonard Hospitalist Hospitalist Team 2 Admitting Provider Name Tejas Joy Admitting Provider ID [id number] CNCM suggested converting pt . from observation status to inpatient if pt. Is not discharging today. Pt. is on continuous IVF. CNCM spoke to [facility] 2. 1102 : Central supply form l eft in Hard chart. Primary nurse will fill ostomy supplies. MEDICAL TECHNOLOGIST CHEMISTRY notified. Will complete consult. CNCM will continue to follow and collaborate wit h the interdisciplinary team. Please contact the RN Case Chiara balbuena or Maintenance Mechanic 2Nd Shift for any discharge needs. Thank you, Bao Goodman MSN, MONA, RN, CCRN Clinical Nurse Director Of [employer] [facility] RIYA : [phone] OFFICE : [phone] Electronically signed by Bao Goodman RN at 11:03 AM CDT 2022-02-20 Formatting of this note might be differe nt from the original. Ashley Almonte RN [facility] 01:57:50-00:00 System Problem: Falls / Injury [...] And Objective Responses. Outcome: Met This Shift 2022-02-19 Formatting of this note might be differe nt from the original. Nathaly Cm [facility] 18:04:19-00:00 System Problem: Pain - Acute [...] This Shift Note: Educated pt on the imp ortance pf performing hand hygiene. No sign of infection noted at the ostomy site. Will continue to monitor Electronically signed by Nathaly Cm 02/19/2022 6:04 PM CDT 2022-02-19 [facility] 15:42:00-00:00 Pt arrived in unit via stret jerica. Pt AOX4. Denies pain and discomforts. No distress noted at this time. Will continue to monitor. System Electronically signed by Nathaly Cm 02/19/2022 5:08 PM CDT 2022-02-19 Formatting of this note might be differe nt from the original. Abiola Barnett [facility] 12:01:59-00:00 Pt in bed sleeping supine. R espirations unlabored with equal chest rise and fall. Vitals are stable. Pt has no medical complaints at this time. Meds admin per orders. Bed locked and lowered. Awaitng further orders. System Electronically signed by Abiola Barnett at 0 02/19/2022 12:06 PM CDT 2022-02-19 [facility] 08:08:44-00:00 Assumed care of Dora Mcneill 52 y.o male. Reason for visit: Needs supplies for illiostomy. System Pt AOX3, PT confirms name an d with arm band. When asked do you know where you are? pt states " [facility] [place]". When asked what day it is? pt [...] differe nt from the original. Sabi Jose [facility] 04:55:54-00:00 Awaiting Midline placement for 4am labs at this time. System Electronically signed by Sabi Jose at 01/23 4:56 AM CDT 2022-02-19 [facility] 04:30:00-00:00 Pt is a 52YOM with a PMhx of colostomy, homelessness. Pt presents to the EC with a c/o hypotension, protruding stoma, and [...] Jose at 01/23 4:55 AM CDT 2022-02-19 [facility] 03:00:00-00:[address] retcher, airway patent, breathing equal and unlabored, circulation intact. NAD, VSS. Pt continues to deny any N/V dizziness, MOMIN, CP or SOB. Currently awaiting bed assignment System and midline placement. AM la bs to be drawn from midline when placed. Transferred to A 10 at this time. Handoff report given to Sabi MART. 2022-02-18 [facility] 23:06:00-00:[address] retcher, airway patent, breathing equal and unlabored, circulation intact. NAD, VSS. Currently awaiting midline placement and bed assignment. System 2022-02-18 [facility] 21:13:12-00:00 Page returned from admit pro vider. Per Lou CAPONE, no need for blood cultures or repeat lactic at this time. Pending midline order for any further lab draws. System 2022-02-18 [facility] 20:36:02-00:00 Rounded with admitting provi estevan regarding blood culture order. Recommended midline placement for access and blood sample collection due to multiple failed attempts to obtain cultures. Pending response at this time. System 2022-02-18 [facility] 19:20:00-00:00 Assumed care of pt. Identifi [...] differe nt from the original. Sukhwinder Bradley [facility] 18:50:00-00:00 Unable to obtain cultures or lactic at this time. MD Palacios notified. stated he would attempt US for second IV access and lactic. Blood cultures not needed at this time. System Electronically signed by Sukhwinder Bradley at 022 7:04 PM CDT 2022-02-18 Formatting of this note is different from the or iginal. [facility] 15:50:15-00:00 System 02/18/22 1546 Referral Data [...] Pt open to resources. SW pro vided residential and drop-in [facility] resources [facility], [place], [employer], and [facility] RN ext, [phone] aware of o stomy supply request. - please contact dept for updates. .No further hospice social worker identified, SW remains available to assist as needed. .Carly Soto, [facility] #[id number] [place] [id number] Electronically signed by Carly Soto at 2021 4:01 PM CDT 2022-02-18 Formatting of this note is different from the or iginal. [facility] 15:46:03-00:00 System History Chief Complaint Patient [...] bedside without difficulty. History provided by: Patient recordist used: No Illness Severity: Unable to specify [...] Capillary Refill: Capillary refill takes less t dcukworth 2 seconds. Coloration: Skin is not jaundiced. Findings: No bruising. Neurological: General: No focal deficit present. Mental Status: He is alert and oriented to person, place, and time. Mental status is at baseline. Psychiatric: Mood and Affect: Mood normal. Behavior: Behavior normal. Procedures Procedures ED Course ED Course as of 02/19/22 1522 Tue Feb 18, 2022 142 Pending labs, reassessm ent; D/c home if [...] A "PRELIMINARY" report was made available via IC at the time of dictation by the resident indicated below. If th e report is described as "FINALIZED" it indicates the attending/staff rad iologist below has reviewed the images and agrees with the resident 's interpretation. Dictated By: Jian Dudley MD, 02/18/2022 3:32 PM I have reviewed the study and agree with the alvarado berrioss in this report. Signed By: Gunnar Pitt MD, 02/18/2022 3:41 PM Intervention: - Bolus 1L IVF, PO tylenol Consultation: - None Disposition: - Hospitalize with the [facility] plan of care: IV fluids and further evaluation and management Roz Scales MD Emergency Medicine Resident February 18, 2022 3:59 PM Roz Scales ResidentGA Resident 02/18/22 1601 PROVIDER REASSESSMENT NOTE I [...] kidney injury) Plan: Hospitalize with the [facility] plan of care: IV fluids and further evaluation and management Luz Monk February 18, 2022 7:05 PM Chadd Palacios ResidentMD Resident 02/18/22 1905 Electronically signed by Mitzi Carbajal MD a t 02/19/2022 3:11 PM CDT Associated attestation - Mitzi Carbajal MD - 02/19/2022 3:11 PM CDT Please see my separate attestation note. 3:11 PM February 19, 2022 Mitzi Carbajal M.D. Professor Of Visual Arts [facility] #[id number] [facility] 15:30:00-00:00 Unable to obtain further PIV access at this time x2 nurses aware System Electronically signed by Sukhwinder Bradley at 022 7:13 PM CDT 2022-02-18 Formatting of this note is different from the or iginal. [facility] 15:17:08-00:00 Faculty Addendum System Briefly, Dora [...] the resident's note. -- Mitzi Carbajal MD [facility] Emergency Center #[id number] Mitzi Carbajal MD 02/18/22 1521 Electronically signed by Mitzi Carbajal MD a t 02/18/2022 3:21 PM CDT 2022-02-18 Formatting of this note is different from the or iginal. Carly Soto [facility] 14:56:11-00:00 SW received consult for: System Comments Patient needs ostomy supplies SW notified [facility] Rn ext.[phone] .Carly Soto LCSW #[id number] [place] [id number] Electronically signed by Carly Soto at 2021 2:57 PM CDT 2022-02-18 Formatting of this note might be differe nt from the original. Gwen Recinos [facility] 13:59:48-00:00 Dora cMneill is a 52y. o. male who presents to EC BIB EMS for hypotension, SBPs of 70s on arrival. Pt also c/o worsening protruding stoma. GCS 15. AAOx4. Speech clear and appropriate. NAD. ABC inta Marian RN System ct. Resp even and unlabored. Skin warm and dry with color appropriate to ethnicity. FROMx4. Pt on monitor. EC team at bedside for eval. Will continue to follow. T 2022-02-11 Formatting of this note might be differe nt from the original. Tamera Rodarte [facility] 04:11:24-00:00 System Problem: Healing Environment Goal: [...] Goal: Fluid And Electrolytes Will Remain In [place] nce Description: Patient will maintain fluid and [...] Rodarte at 01/23 4:11 AM CDT 2022-02-10 [facility] 03:26:33-00:00 System Problem: Healing Environment Goal: [...] different fro m the original. Elisa Clayton [facility] 02:12:58-00:00 Suraj RN System 02/10/22 0212 Intervention Disease Management Meets criteria for Inpatient ([id number]) Medical Necessity Screening Admission review CNCM reviewed chart for medical necessity and ho spitalization. Met inpatient criteria per P A referral, please place "admit to inpatient" order. Elisa GEORGEN RN, ACM-RN EC Clinical Nurse Director Of [employer] Services [facility] 2022-02-09 [facility] 04:16:13-00:00 System Problem: Healing Environment Goal: Provide A Physical Env ironment Affirmed By The Patient To Be Safe And Comfortable Outcome: Met This Shift Problem: Falls / Injury Goal: Absence of fall or injury Description: Refer to the Documentation Flowshee t for Interventions. Outcome: Met This Shift Problem: Alteration In Fluid Volume Goal: Fluid And Electrolytes Will Remain In [place] nce Description: Patient will maintain fluid and [...] fro m the original. Sushila Whittington RN [facility] 00:58:33-00:00 Case management note: System Chart reviewed for medical necessity and hospita lization 02/09/22 0057 Intervention Financial Needs [facility] Eligibility (Presumed Indigent) Disease Management Meets criteria for Outpatient (Pending further work ups,continue IV fluids) Medical Necessity Screening Observation review;C oncurrent review ([id number]) CNCM will continue to follow patient care and di scharge plan Thank you, Sushila WANG, RN, CCRN, CCM EC Clinical Nurse [employer] Operator Chief 2022-02-08 Formatting of this note is different fro m the original. [facility] [facility] System Nutrition recs below in [...] Estimated Nutrition Needs (Current wt: 70.7kg): Calories: 2895-4440 kcal/day (30-35 kcal/kg) Protein: 85-106 g/day (1.2-1.5 g/kg) Fluid: ~9498-9031 mL/day (1 mL/kcal) or per MD gideon [...] Pati Gordillo RD, YANA Clinical Dietitian II #[id number] Pager: [phone] Office: [phone] 2022-02-08 [facility] 14:56:09-00:00 System Problem: Healing Environment Goal: [...] Met This Shift Electronically signed by Darrion Huston at 2 2:56 PM CDT 2022-02-08 [facility] 04:14:49-00:00 System Problem: Standards Of Nursing [...] constipation or diarrhea) Outcome: Met This Shift T 2022-02-08 Formatting of this note might be differe nt from the original. Cammy Julio [facility] 00:39:08-00:00 Pt admitted to 09/25 and i s being transported via stretcher with RN. Pt in NAD, ABCs intact. System Electronically signed by Cammy Kim at 2021 12:39 AM CDT 2022-02-08 Formatting of this note might be differe nt from the original. Katy Clinewthon [facility] 00:31:23-00:00 Primary RN Cammy notified of bed assignment. System Electronically signed by Katy Perkins 02/08/2022 12:[address] [facility] 2022-02-07 Formatting of this note is different from the or iginal. [facility] 20:40:00-00:00 Past Medical History: System Diagnosis [...] Kim at 2021 10:18 PM CDT 2022-02-07 [facility] 20:11:16-00:00 Pt not physically in room yet. S ystem Electronically signed by Cammy Kim at 2021 8:11 PM CDT 2022-02-07 [facility] 19:40:41-00:00 Pt moved on tracker, not physically in room D13 at this time. System Electronically signed by Cammy Kim at 2021 7:41 PM CDT 2022-02-07 Formatting of this note might be differe nt from the original. Emergency Medicine [facility] 14:42:46-00:00 TEACHING PHYSICIAN NOTE System I [...] note is different from the or iginal. Valente Watkins [facility] 13:45:38-00:00 First contact with Dora Mcneill, 51y.o., male. Patient identified using two patient identifiers (NAME and ). Patient presents to ER bed CC01 with a complaint of System Chief Complaint Patient presents with Blood Pressure Hypotension 84/49. Other Colostomy bag "fell off" last night. At this time patient AOx4, l jose de jesus supine with HOB elevated. Patient showing no signs of acute distress. Patient presented to CC as a medicine shock due to hypotension [...] Watkins at 2021 1:50 PM CDT 2022-02-07 [facility] 13:32:13-00:00 Pt hypotensive, taken 2 time s while at ambulance desk. 84/49, HR 81. System 2022-01-30 [facility] 17:43:00-00:00 [facility] ([facility]) EMERGENCY PROVIDER REPORT REPORT#:[id number] REPORT STATUS: Signed DATE:01/30/22 TIME: 1742 PATIENT: DORA MCNEILL UNIT #: [id number] ROOM: BED: AGE: 51 SEX: M PCP PHYS: No Primary or Family Ph ysician SERVICE AUTHOR: Dwain Pacheco * ALL edits or amendments must be made on the el [employer]/computer document * HPI-General Illness Free Text HPI Notes Free Text HPI Notes PMH of remote ostomy from at sounds like perforated diverticulitis. Brought to the ED by EMS[facility] for a reported prolaps ed stoma. States it has been like this for at least 2-3 years. Notes he just ignored it but now has a little more discomfort. Still notes he i s having adequate output. No reported fever, n/v/d, back pain. Ostomy was done at [facility]. Patient states he is homeless. General Initial Greet Date/Time 01/30/22 170 Presentation Chief Complaint __ (Ostomy/stoma problem) Hx [...] Pulse 83 01/30 1726 Resp 16 01/30 1726 Last Documented: Result Date Time Pulse Ox 99 01/30 1826 B/P 99/60 01/30 1826 B/P Mean 73 01/30 1826 O2 Delivery Room air 01/30 1826 Temp 37.1 01/30 1826 Pulse 93 01/30 1826 Resp 16 01/30 1826 Review of Vital Signs Reviewed Physical Exam [...] original surgeon or seek care in the [facility] system to obtain surgical f/u for further management. However, also given strict r eturn precautions to the ED. Patient Discharge Departure Vital Signs/Condition Vital Signs First Documented: Result Date Time O2 Delivery Room air 01/30 1706 Pulse Ox 99 01/30 1726 B/P 106/70 01/30 1726 B/P Mean 82 01/30 1726 Temp 37.1 01/30 1726 Pulse 83 01/30 1726 Resp 16 01/30 1726 Last Documented: Result Date Time Pulse Ox 99 01/30 1826 B/P 99/60 01/30 1826 B/P Mean 73 01/30 1826 O2 Delivery Room air 01/30 1826 Temp 37.1 01/30 1826 Pulse 93 01/30 1826 Resp 16 01/30 1826 All vital signs available at the time [...] any worse or severe sympto ms. Address: [address] [place] [address], [address] [place] [address] at 1906 RPT #:[id number] END OF REPORT 2021-09-23 [facility] 21:01:00-00:00 [facility] ([facility]) EMERGENCY PROVIDER REPORT REPORT#:[id number] REPORT STATUS: Signed DATE:09/23/21 TIME: 2100 PATIENT: HOANG MCNEILL UNIT #: [id number] ROOM/BED: AGE: 51 SEX: M PCP PHYS: No Primary or Family Ph ysician SERVICE AUTHOR: Raffaele Levi MD * ALL edits or amendments must be made on the el [employer]/computer document * HPI-Abd Pain M 40 and [...] MG PO BID #10 TABS Prov: 07/27/21 Calculated Suicide Risk (nurs) No risk Additional [...] ASDIR PRN 09/23 1944 AC IV 09/24 184 Sodium Chloride 1,000 ML X1ED STA 09/23 1939 DC 09/23 IV 09/23 Gastrointestinal Drugs Sig/Elena Start time Last Medication Dose Route Stop Time Status Admin Ondansetron HCl 4 MG X1ED PRN PRN 09/23 1944 DC 09/23 IV 2008 Differential Diagnosis Differential Diagnosis Abdom inal aortic aneurysm, Abscess, Acute abdominal pain, Acute coronary syndrome, Angina/SC, Aortic disse ction, Appendicitis, Bladder outlet obstruct, [...] 80 09/23 1939 O2 Delivery Room air 01/31 1940 Temp 36.7 09/23 1939 Pulse 80 09/23 [...] (ZOFRAN ODT) 4 MG PO Q6H PRN ID N NAUSEA/VOMITING #15 TABS Patient Instructions ED [...] symptoms should prompt an immediate return to [facility] or the closest emergency department or a call to 911. at 2106 RPT #:[id number] END OF REPORT 2021-09-13 [facility] 15:01:00-00:00 [facility] ([facility]) EMERGENCY PROVIDER REPORT REPORT#:[id number] REPORT STATUS: Signed DATE:09/13/21 TIME: 1501 PATIENT: HOANG MCNEILL UNIT #: [id number] ROOM/BED: AGE: 51 SEX: M PCP PHYS: No Primary or Family Ph ysician SERVICE DT: AUTHOR: Raffaele Levi MD * ALL edits or amendments must be made on the el [employer]/computer document * HPI-Dizziness/Weakness Free Text HPI Notes Free Text HPI Notes 51-year-old male with history of bowel obstructi on status post colostomy presents requesting IV fluid hydration due to in creased output from his colostomy for 1 day. Denies additional symptoms including bleeding events, pain or vomiting. Notes he was recently admitted at [facility] and was discharged last week after fluid hydration. He reports he was ab le to see his surgical aides teacher during that admis jcarlos and that he requested a colostomy reversal but his request was declined. Duration 1 day frequency con stant context denies trauma modifying no improvement with home medications General Initial Greet Date/Time 09/13/211456 Presentation Chief Complaint fluid hydration Review of [...] 09/13 1459 O2 Delivery Room air 09/13 145 Temp 36.6 09/13 1459 Pulse 89 09/13 1459 Resp 19 09/13 145 Last Documented: Result Date Time Pulse Ox 99 09/13 1459 B/P 136/85 09/13 1459 B/P Mean 102 09/13 1459 O2 Delivery Room air 09/13 145 Temp 36.6 09/13 1459 Pulse 89 09/13 1459 Resp 19 09/13 145 Review of Vital Signs Reviewed Basic Physical [...] ill refer him to a surgeon at [place] for second opinion. ED Course Medication(s) Ordered [...] accident, Dehydration, Depression, Dysrhythmia, Electrolyte disorder, G uillain-Afton syndrome, Heat cramps, Heat exhaustion, Heat stroke, [...] 09/13 1459 O2 Delivery Room air 09/13 145 Temp 36.6 09/13 1459 Pulse 89 09/13 1459 Resp 19 09/13 1458 Last Documented: Result Date Time Pulse Ox 99 09/13 145 B/P 136/85 09/13 1458 B/P Mean 102 09/13 145 O2 Delivery Room air 09/13 1458 Temp 36.6 09/13 145 Pulse 89 09/13 1459 Resp 19 09/13 [...] symptoms should prompt an immediate return to [facility] or the closest emergency department or a call to 911. at 1520 RPT #:[id number] END OF REPORT 2021-07-27 [facility] 12:06:00-00:00 [facility] ([facility]) EMERGENCY PROVIDER REPORT REPORT#:[id number] REPORT STATUS: Signed DATE:07/27/21 TIME: 1206 PATIENT: HOANG MCNEILL UNIT #: [id number] ROOM/BED: AGE: 51 SEX: M PCP PHYS: No Primary or Family Ph ysician SERVICE AUTHOR: Juan Jose Avendaño MD * ALL edits or amendments must be made on the [employer]/computer document * HPI-General Illness General Initial Greet [...] (Auto) (23.0 - 38.0 %) 16.4 L Dawson % (Auto) (1.0 - 10.0 %) 9.5 Eos % (Auto) (1.0 - 5.0 %) 0.5 L Baso % (Auto) (0.0 - 1.0 %) 0.4 Neut # (Auto) (2.4 - 6.3 K/mm3) 5.5 Lymph # (Auto) (1.2 - 4.0 K/mm3) 1.2 Dawson # (Auto) (0.0 - 0.6 K/mm3) 0.7 [...] 1017 O2 Delivery Room air 07/27 1017 All vital signs available at the [...] ... Referrals Rebecca Ricci MD at 1418 RPT #:[id number] END OF REPORT 2021-07-22 [facility] 04:37:00-00:00 [facility] ([facility]) EMERGENCY PROVIDER REPORT REPORT#:[id number] REPORT STATUS: Signed DATE:07/22/21 TIME: 0437 PATIENT: HOANG MCNEILL UNIT #: [id number] ROOM/BED: AGE: 51 SEX: M PCP PHYS: No Primary or Family Ph ysician SERVICE AUTHOR: Gabriella Hewitt MD * ALL edits or amendments must be made on the el [employer]/computer document * HPI-Dizziness/Weakness Free Text HPI Notes Free Text HPI Notes This is a 51-year-old male with past medical his tory significant for homelessness presented to [facility] emergency department for dizziness and dry mouth. Patient reports that since this bowling ball patcher he has been experiencing a lightheadedness and a dry mo uth. He is denying nausea, vomiting, fevers, chills, chest pain, shortness of arabella ath. He has no other concerns or complaints at this time. General Initial Greet Date/Time 07/22/21 0426 Presentation Chief Complaint Lightheaded Risk-Dizziness/Weakness Risk Stratification [...] Lab Results Interpretation Results Laboratory Tests: 07/22 07/22 07/22 0600 0519 0433 Blood Gas Sodium (134 - [...] Free Text MDM Notes This 51-year-old male [facility] emergency department with lightheadedness and dry mouth. A dvvqg-wt-oorp gluco se was obtained which revealed a [...] completed eating the food provided here in [facility] emergency department. Remainder BMP was unremarkable. CBC [...] ONE 07/22 615 DC 07/22 IV 07/22 Patient Discharge Departure Vital Signs/Condition Vital Signs [...] have given you some food here in [facility] emergency department which help correct [...] Gabriella Hewitt MD on at 0650 RPT #:[id number] END OF REPORT 2021-06-27 [facility] 15:44:00-00:00 [facility] ([facility]) EMERGENCY PROVIDER REPORT REPORT#:[id number] REPORT STATUS: Signed DATE:06/27/21 TIME: 1544 PATIENT: DORA MCNEILL UNIT #: [id number] ROOM/BED: AGE: 51 SEX: M PCP PHYS: No Primary or Family Ph ysician SERVICE AUTHOR: Sabi Urias MD * ALL edits or amendments must be made on the [employer]/computer document * HPI-Abd Pain M 40 and [...] and obstructions in 1999 reports to the [facility] emergency [facility] via [facility] complaining of [...] Room air 06/27 1535 Temp 37.0 06/27 1535 Pulse 87 06/27 1535 Resp 16 06/27 1535 Last Documented: Result Date Time Pulse Ox 99 06/27 1733 B/P 130/79 06/27 1733 B/P Mean 96 06/27 1733 O2 Delivery Room air 06/27 1733 Pulse 86 06/27 1733 Resp 16 06/27 1733 Temp 37.0 06/27 1535 Review of Vital Signs Reviewed Focused PE [...] s otherwise.. Impression By: [id number] - Chiara Esqueda CAT SCAN - CT ABD PELVIS W/CONT [...] identified. SL:131 Impression By: [place] - Marco aRman M.D. Re-Evaluation [facility] )( Re-Evaluation/Progress #1 Text/Dict Note no complaints. pt requests coffee Time of Re-Eval 172 )( Re-Eval Status Improved Re-Eval Abdomen Soft, Non-tender ED Course Medication(s) Ordered Medication(s) Ordered: Central Nervous System Agents Sig/Elena Start time Last Medication Dose Route Stop Time Status Admin Morphine Sulfate 4 MG X1ED STA 06/27 1535 DC 1 08/27 IV 06/27 1536 1553 Diagnostic Agents Sig/Elena [...] Room air 06/27 1535 Temp 37.0 06/27 1535 Pulse 87 06/27 1535 Resp 16 06/27 1535 Last Documented: Result Date Time Pulse Ox 99 06/27 1733 B/P 130/79 06/27 1733 B/P Mean 96 06/27 1733 O2 Delivery Room air 06/27 1733 Pulse 86 06/27 1733 Resp 16 06/27 [...] symptoms should prompt an immediate return to [facility] or the closest emergency department or a call to 911. at 1239 RPT #:[id number] END OF REPORT 2021-04-30 [facility] 12:16:00-00:00 [facility] Hospitalist Progress Note REPORT#:[id number] REPORT STATUS: Signed DATE:04/30/21 TIME: 1216 PATIENT: DORA MCNEILL UNIT #: [id number] ROOM/BED: [place] [address] : 70 AGE: 51 SEX: M ATTEND: Balta Leonard DO ADM AUTHOR: Yvon Loredo MD * ALL edits or amendments must be made on the el [employer]/computer document * Subjective Chief Complaint: Follow for abdominal pain, cramps and ALMA in pat ient with history of volvulus and megacolon [...] 68 17 95/60 71.2 98 Room air 9 8 04/29 2021 97.5 70 17 100/66 77.6 [...] PO Acetaminophen/Codeine Phosphate 1 TAB Q6H PRN ID N PO Al Hydrox/Mg Hydrox/Simethicone 30 ML Q4H PRN ID N PO Docusate Sodium 100 MG BID [...] abdominal midline Extremities: moves all, no edema Neuro/[employer] HARVEST CONTRACTOR: alert, oriented X 3, normal speech Skin: dry, intact Psychiatry: normal affect, normal judgment/insig ht Results Findings/Data: Laboratory Tests 04/30 0500 Chemistry Sodium (134 - 147 mEq/L) 143 [...] - 10.5 mg/dL) 8.4 Laboratory Tests 04/30 0500 Hematology WBC (4.5 - 11.0 x10 3/uL) [...] (Auto) (14.0 - 32.0 %) 39.4 H Dawson % (Auto) (4.8 - 9.0 %) 9.8 H Eos % (Auto) (0.3 - 3.7 %) 3.4 Baso % (Auto) (0.0 - 2.0 %) 0.6 Neut # (Auto) (2.0 - 7.6 x10 3/uL) 1.67 L Lymph # (Auto) (1.0 - 3.8 x10 3/uL) 1.41 Dawson # (Auto) (0.1 - 0.8 x10 3/uL) [...] # (Man) (0.0 - 0.1 x10 3/uL) 0. 00 Diagnosis, Assessment Plan Free Text DxA P [...] answered all the qu estions. Quality: Gen Med Crit Care Current Medications Current medication review: I attest that the foregoing medication list in [facility] medical record is true, accurate, and complete to the best of my knowled ge. VTE Prophylaxis VTE prophylaxis initiated: yes Electronically Signed by Yvon Loredo MD on at 1223 RPT #:[id number] END OF REPORT 2021-04-29 [facility] 12:20:00-00:00 [facility] ([facility]) Clinical Note REPORT#:[id number] REPORT STATUS: Signed DATE:04/29/21 TIME: 1220 PATIENT: DORA MCNEILL UNIT #: [id number] ROOM/BED: [place] [address] : 70 AGE: 51 SEX: M ATTEND: Balta Leonard DO ADM AUTHOR: Yvon Loredo MD * ALL edits or amendments must be made on the el [employer]/computer document * Clinical Note Note: Patient seen and examined at bedside this annabelle g, patient was admitted this morning by my colleague Dr. Mckeon, noted findi ngs on work-up, still with increased ostomy output, giv en a dose of Imodium and increased IVF to 100 cc/h, additional plan as outlined in Dr. Hampton's not e. Electronically Signed by Yvon Loredo MD on at 1222 [facility] #:[id number] END OF REPORT 2021-04-29 [facility] 05:43:00-00:00 [facility] ([facility] [facility]) Hospitalist History Physical REPORT#:[id number] REPORT STATUS: Signed DATE:04/29/21 TIME: 0543 PATIENT: DORA MCNEILL UNIT #: [id number] ROOM/BED: [place] [address] : 70 AGE: 51 SEX: M ATTEND: Balta Leonard DO ADM AUTHOR: Montserrat Leonard DO * ALL edits or amendments must be made on the [employer] document * History of Present Illness HPI [...] Result Date Time Pulse Ox 100 04/29 508 B/P 100/64 04/29 508 B/P Mean 76.4 04/29 508 FiO2 100 04/29 508 O2 Delivery Room air 04/29 508 Temp 97.5 04/29 508 Pulse 67 04/29 508 Resp 17 04/29 508 24 hour I O ending at 0700: 04/29 0700 04/28 1900 Intake Total 1000.00 Output Total Balance 1000.00 Intake, IV 1000.00 Patient 70 kg Weight Weight Standing scale Measurement Method Patient Weight and BMI Weight (kg): 70.000 BMI: 20.4 Results Findings/Data: Laboratory Tests: 04/29 04/28 04/28 04/28 0327 2152 1858 1813 Blood Gas Sodium (134 - 147 MEQ/L) [...] Extremities: no clubbing, no cyanosis, no edema Neuro/FIELD CROP HARVEST CONTRACTOR: alert, oriented X 3, CNII-XII intact Skin: [...] with: patient Code status: full code Quality: [facility] [place] Current Medications Current medication review: I attest that the foregoing medication list in t medical record is true, accurate, and complete to the best of my knowled ge. VTE Prophylaxis VTE prophylaxis initiated: yes at 0713 [facility] #:[id number] END OF REPORT 2021-04-28 [facility] 18:11:00-00:00 [facility] ([facility]) EMERGENCY PROVIDER REPORT REPORT#:[id number] REPORT STATUS: Signed DATE:04/28/21 TIME: 1810 PATIENT: DORA MCNEILL UNIT #: [id number] ROOM/BED: [place] [address] AGE: 51 SEX: M PCP PHYS: No Primary or Family Ph ysician SERVICE AUTHOR: Montserrat Benoit MD * ALL edits or amendments must be made on the [employer]/computer document * Montserrat Benoit 04/28/211810: HPI-Abd Pain [...] 80 04/28 2100 Resp 20 04/28 2100 Review of Vital Signs Reviewed Focused PE [...] (FLORANEX) 1 TAB PO TID #15 TABS Maureenaku,Anh E 04/28/212057: HPI-Abd Pain M 40 and Over Presentation Chief Complaint Abdominal pain Interpretation Diagnostics Lab Results Interpretation Results Laboratory Tests 04/28/211812: [Embedded Image Not Available] Laboratory Tests: 04/28 Blood Gas Sodium (134 - 147 MEQ/L) [...] of this patien t was transferred to ar by Dr. Benoit. At the time of [...] 0830 )( Re-Eval Status Improved, On reassessment, lisbeth [...] communicated with the staff or medical p aniyaher taking over this patient's care. Electronically Signed by Anh Gannon DO on 0 04/28/21 at 2103 at 210 RPT #:[id number] END OF REPORT 2021-04-28 [facility] 18:11:00-00:00 [facility] ([facility]) EMERGENCY PROVIDER REPORT REPORT#:[id number] REPORT STATUS: Signed DATE:04/28/21 TIME: 1810 PATIENT: DORA MCNEILL UNIT #: [id number] ROOM/BED: AGE: 51 SEX: M PCP PHYS: No Primary or Family Ph ysician SERVICE AUTHOR: Montserrat Benoit MD * ALL edits or amendments must be made on the [employer]/computer document * Montserrat Benoit 04/28/21 1811: HPI-Abd Pain M 40 and Over General [...] 4 MG X1ED STA 04/28 1812 DC 0 04/28 IV 04/28 Diagnostic Agents Sig/Elena Start time [...] of this patien t was transferred to ar by Dr. Benoit. At the time of [...] Discussed the patient's case with Dr. Aisha arvizu ho has agreed to admit the patient under his service. Patient has been info rmed of his laboratory and radiographic results and plan for admission and is agreeable with this plan. )( Re-Evaluation/Progress #1 Time of Re-Eval 0830 )( Re-Eval Status Improved, On reassessment, lisbeth [...] DO on 0 04/28/21 at 2103 RPT #:[id number] END OF REPORT 2020-02-25 [facility] 11:14:00-00:00 [facility] ([facility]) Hospitalist Discharge Summary REPORT#:[id number] REPORT STATUS: Signed DATE:02/25/20 TIME:1114 PATIENT: DORA MCNEILL UNIT #: [id number] ROOM/BED: [address] : 70 AGE: 50 SEX: M ATTEND: Lucia Perea MD ADM AUTHOR: Mark Perea MD * ALL edits or amendments must be made on the [employer]/computer document * PCP PCP Discharge to: home [...] normal judgment/insig ht at 1652 RPT #: [id number] END OF REPORT 2020-02-25 [facility] 08:21:00-00:00 [facility] Hospitalist Progress Note REPORT#:[id number] REPORT STATUS: Signed DATE:02/25/20 TIME:820 PATIENT: DORA MCNEILL UNIT #: [id number] ROOM/BED: [place] [address] : 70 AGE: 50 SEX: M ATTEND: Lucia Perea MD ADM AUTHOR: Mark Perea MD * ALL edits or amendments must be made on the [employer]/computer document * Subjective Chief Complaint: Abdominal pain [...] PRN PRN IV Sodium Chloride 1,000 ML .[id number] IV Physical Exam General appearance: alert, awake [...] normal judgment/insig ht Results Findings/Data: Laboratory Tests 02/25 740 Chemistry Sodium (134 - 147 mmol/L) 142 [...] % (Auto) (20.5 - 51.1 %) 34.7 Dawson % (Auto) (1.7 - 9.3 %) 8.4 Eos % (Auto) (0.0 - 6.0 %) 2.2 Baso % (Auto) (0.0 - 2.0 %) 0.9 Neut # (Auto) (1.8 - 7.6 K/mm3) 1.7 L Lymph # (Auto) (0.6 - 3.0 K/mm3) 1.1 Dawson # (Auto) (0.2 - 1.5 K/mm3) 0.3 Eos # (Auto) (0.0 - 0.4 K/mm3) 0.1 Baso # (Auto) (0.0 - 0.2 K/mm3) 0.0 Abs Immat Gran (auto) (0.00 - 0.03 x10 3/uL) 0. 01 Nucleated RBC % (0.0 - 1.0 /100WBC%) [...] diet DC home at 1255 RPT #: [id number] END OF REPORT 2020-02-24 [facility] 12:17:00-00:00 [facility] ([facility]) Hospitalist Progress Note REPORT#:[id number] REPORT STATUS: Signed DATE:02/24/20 TIME:1217 PATIENT: DORA MCNEILL UNIT #: [id number] ROOM/BED: [place] [address] : 70 AGE: 50 SEX: M ATTEND: Lucia Perea MD ADM AUTHOR: Mark Perea MD * ALL edits or amendments must be made on the [employer] document * Subjective Chief Complaint: Abdominal pain [...] 57 18 94/61 72 99 Room air 07/03 0407 97.9 57 18 94/61 71.8 99 [...] PRN PRN IV Sodium Chloride 1,000 ML .[id number] IV Iopamidol 100 ML .STK-MED ONE IV [...] judgment/insig ht Results Findings/Data: Laboratory Tests 02/22 Chemistry Sodium (134 - [...] % (Auto) (20.5 - 51.1 %) 36.6 Dawson % (Auto) (1.7 - 9.3 %) 10.0 H Eos % (Auto) (0.0 - 6.0 %) 2.6 Baso % (Auto) (0.0 - 2.0 %) 0.6 Neut # (Auto) (1.8 - 7.6 K/mm3) 2.4 Lymph # (Auto) (0.6 - 3.0 K/mm3) 1.7 Dawson # (Auto) (0.2 - 1.5 K/mm3) 0.5 [...] - 7.0 pH UNITS) 6.0 Ur Specific [place] (1.005 - 1.030 SG) 1.025 Urine Protein [...] evidence of small bowel obstruction. Impression By: [email or web address] - Marybel José M.D. RADIOLOGY - XR [...] monitored IV hydration at 1309 RPT #: [id number] END OF REPORT 2020-02-24 [facility] 10:25:00-00:00 [facility] ([facility]) GE Consultation Note REPORT#:[id number] REPORT STATUS: Signed DATE:02/24/20 TIME:1025 PATIENT: DORA MCNEILL UNIT #: [id number] ROOM/BED: [place] [address] : 70 AGE: 50 SEX: M ATTEND: Lucia Perea MD ADM AUTHOR: Andre Solano * ALL edits or amendments must be made on the [employer]/computer document * History of Present Illness Requesting clinician: Eliazar Reason for consult: abdominal distention Chief complaint: abdominal distention HPI: Patient is a 50 year old mal e with past medical history of colon resection with colostomy s/p reversal who presented to the [facility] with complaints of LLQ. Patient has a [...] 100 MG PO BID 02/17/20 Strength: MG [address] 40 MG PO DAILY 02/17/20 (PROTONIX) 1730 Strength: 40 MG TAB.DR Current Hospital Medications: [...] Time Status Admin Sodium Chloride 1,000 ML .[id number] 02/22 2145 AC 02/22 (0.9% Sodium IV [...] 4 MG X1ED STA 02/22 1915 DC 07/ 02 (ZOFRAN) IV 02/22 Allergies: Coded Allergies: No Known Allergies (02/24/20) Occupation: none Ambulatory status: Independent Review of Systems Free Text ROS Notes Free Text ROS Notes: Pertinent positives and negatives noted in HPI Objective Physical Exam VS/I O: Last Documented: Result Date Time Pulse Ox 96 02/23 075 B/P 96/61 02/23 0756 B/P Mean 72.4 02/24 756 O2 Delivery Room air 02/24 756 Temp 36.6 02/24 756 Pulse 65 02/23 0756 Resp 18 02/23 075 24 hour I [...] PRN PRN IV Sodium Chloride 1,000 ML .[id number] IV Iopamidol 100 ML .STK-MED ONE IV [...] moves all, no cyanosis Musculoskeletal: normal inspection Neuro/FIELD CROP HARVEST CONTRACTOR: alert, oriented X 3 Results Findings/Data: Laboratory [...] % (Auto) (20.5 - 51.1 %) 36.6 Dawson % (Auto) (1.7 - 9.3 %) 10.0 H Eos % (Auto) (0.0 - 6.0 %) 2.6 Baso % (Auto) (0.0 - 2.0 %) 0.6 Neut # (Auto) (1.8 - 7.6 K/mm3) 2.4 Lymph # (Auto) (0.6 - 3.0 K/mm3) 1.7 Dawson # (Auto) (0.2 - 1.5 K/mm3) 0.5 [...] primary We will monitor. Electronically Signed by nAdre Solano on at 1032 RPT #: [id number] END OF REPORT 2020-02-24 [facility] 10:25:00-00:00 [facility] ([facility]) GE Consultation Note REPORT#:[id number] REPORT STATUS: Signed DATE:02/24/20 TIME:1025 PATIENT: DORA MCNEILL UNIT #: [id number] ROOM/BED: [place] [address] : 70 AGE: 50 SEX: M ATTEND: Lucia Perea MD ADM AUTHOR: Andre Solano * ALL edits or amendments must be made on the [employer]computer document * Andre Solano 02/24/20 1025: History [...] Time Status Admin Sodium Chloride 1,000 ML .[id number] 02/22 2145 AC 02/22 (0.9% Sodium IV [...] Room air 02/23 075 Temp 36.6 02/23 0756 Pulse 65 02/23 [...] PRN PRN IV Sodium Chloride 1,000 ML .[id number] IV Iopamidol 100 ML .STK-MED ONE IV [...] moves all, no cyanosis Musculoskeletal: normal inspection Neuro/FIELD CROP HARVEST CONTRACTOR: alert, oriented X 3 Results Findings/Data: Laboratory [...] % (Auto) (20.5 - 51.1 %) 36.6 Dawson % (Auto) (1.7 - 9.3 %) 10.0 H Eos % (Auto) (0.0 - 6.0 %) 2.6 Baso % (Auto) (0.0 - 2.0 %) 0.6 Neut # (Auto) (1.8 - 7.6 K/mm3) 2.4 Lymph # (Auto) (0.6 - 3.0 K/mm3) 1.7 Dawson # (Auto) (0.2 - 1.5 K/mm3) 0.5 [...] Andre Solano on at 1032 RPT #: [id number] END OF REPORT 2020-02-24 [facility] 10:25:00-00:00 [facility] ([facility]) GE Consultation Note REPORT#:[id number] REPORT STATUS: Signed DATE:02/24/20 TIME:1025 PATIENT: DORA MCNEILL UNIT #: [id number] ROOM/BED: [place] [address] : 70 AGE: 50 SEX: M ATTEND: Lucia Perea MD ADM AUTHOR: Andre Solano * ALL edits or amendments must be made on the [employer]computer document * Andre Solano 02/24/20 1025: History of Present Illness Requesting clinician: Eliazar Reason for consult: abdominal distention Chief complaint: abdominal distention HPI: Patient is a 50 year old mal e with past medical history of colon resection with colostomy s/p reversal who presented to the hosp [facility] with complaints of LLQ. Patient [...] X1ED STA 02/22 1915 DC 0 02/22 (morphine SULFATE) IV 02/22 Diagnostic Agents Sig/Elena Start time Last Medication Dose Route Stop Time Status Admin Iopamidol 100 ML .STK-MED ONE 02/22 2105 DC (ISOVUE-300) IV 02/22 Iopamidol 0 .STK-MED ONE 02/22 2103 DC (ISOVUE-300) .ROUTE Electrolytic, Caloric, And Yovanny Sig/Elena Start time Last Medication Dose Route Stop Time Status Admin Sodium Chloride 1,000 ML .[id number] 02/22 2145 A C 02/22 (0.9% Sodium IV 02/25 Chloride) Sodium [...] PRN PRN IV Sodium Chloride 1,000 ML .[id number] IV Iopamidol 100 ML .STK-MED ONE IV [...] moves all, no cyanosis Musculoskeletal: normal inspection Neuro/FIELD CROP HARVEST CONTRACTOR: alert, oriented X 3 Results Findings/Data: Laboratory [...] % (Auto) (20.5 - 51.1 %) 36.6 Dawson % (Auto) (1.7 - 9.3 %) 10.0 H Eos % (Auto) (0.0 - 6.0 %) 2.6 Baso % (Auto) (0.0 - 2.0 %) 0.6 Neut # (Auto) (1.8 - 7.6 K/mm3) 2.4 Lymph # (Auto) (0.6 - 3.0 K/mm3) 1.7 Dawson # (Auto) (0.2 - 1.5 K/mm3) 0.5 [...] CAT SCAN - CT ABD PELVIS W/CONT 07/02 2043 Report Impression - Status: SIGNED Entered: 02/23/20202112 IMPRESSION: 1. Unchanged chronic colonic dilatation when com pared to multiple prior KUBs and CT. No evidence of stricture, mas s or volvulus. No evidence of small bowel obstruction. Impression By: [email or web address] José M.D. RADIOLOGY - XR CHEST 1 [...] Andre Solano on at 1032 RPT #: [id number] END OF REPORT 2020-02-24 [facility] 10:25:00-00:00 [facility] ([facility]) GE Consultation Note REPORT#:[id number] REPORT STATUS: Signed DATE:02/24/20 TIME:1025 PATIENT: DORA MCNEILL UNIT #: [id number] ROOM/BED: [place] [address] : 70 AGE: 50 SEX: M ATTEND: Lucia Perea MD ADM AUTHOR: Andre Solano * ALL edits or amendments must be made on the [employer]/computer document * Andre Solano 02/24/20 1025: History of Present Illness Requesting clinician: Eliazar Reason for consult: abdominal distention Chief complaint: abdominal distention HPI: Patient is a 50 year old mal e with past medical history of colon resection with colostomy s/p reversal who presented to the [facility] with complaints of LLQ. Patient has a [...] Time Status Admin Sodium Chloride 1,000 ML .[id number] 02/22 2145 AC 02/22 (0.9% Sodium IV [...] PRN PRN IV Sodium Chloride 1,000 ML .[id number] IV Iopamidol 100 ML .STK-MED ONE IV [...] moves all, no cyanosis Musculoskeletal: normal inspection Neuro/FIELD CROP HARVEST CONTRACTOR: alert, oriented X 3 Results Findings/Data: Laboratory [...] % (Auto) (20.5 - 51.1 %) 36.6 Dawson % (Auto) (1.7 - 9.3 %) 10.0 H Eos % (Auto) (0.0 - 6.0 %) 2.6 Baso % (Auto) (0.0 - 2.0 %) 0.6 Neut # (Auto) (1.8 - 7.6 K/mm3) 2.4 Lymph # (Auto) (0.6 - 3.0 K/mm3) 1.7 Dawson # (Auto) (0.2 - 1.5 K/mm3) 0.5 [...] MD on 0 at 1211 RPT #: [id number] END OF REPORT 2020-02-23 [facility] 23:47:00-00:00 [facility] ([facility]) Hospitalist History Physical REPORT#:[id number] REPORT STATUS: Signed DATE:02/23/20 TIME:2346 PATIENT: DORA MCNEILL UNIT #: [id number] ROOM/BED: [place] [address] : 70 AGE: 50 SEX: M ATTEND: Lucia Perea MD ADM AUTHOR: Jossy Das NP * ALL edits or amendments must be made on the [employer]/computer document * History of Present Illness Free [...] 24 hour I O ending at 0700: 03 0700 02/22 1900 Intake Total Output Total Balance Patient 68.182 kg Weight Weight Stated/Reported Measurement Method Patient Weight Weight (lb): Weight (oz): Weight (kg): 68.182 Medications: Active Meds + DC'd Last 24 Hrs Acetaminophen 650 MG Q4H PRN PRN PO Morphine Sulfate 2 MG Q3H PRN PRN IV Ondansetron HCl 4 MG Q4H PRN PRN IV Sodium Chloride 1,000 ML .[id number] IV Iopamidol 100 ML .STK-MED ONE IV [...] for GI prophylaxis at 0016 RPT #: [id number] END OF REPORT 2020-02-23 [facility] 23:47:00-00:00 [facility] ([facility]) Hospitalist History Physical REPORT#:[id number] REPORT STATUS: Signed DATE:02/23/20 TIME:2346 PATIENT: DORA MCNEILL UNIT #: [id number] ROOM/BED: [place] [address] : 70 AGE: 50 SEX: M ATTEND: Lucia Perea MD ADM AUTHOR: Jossy Das NP * ALL edits or amendments must be made on the [employer]/computer document * Jossy Das 02/23/202346: History of [...] PRN PRN IV Sodium Chloride 1,000 ML .[id number] IV Iopamidol 100 ML .STK-MED ONE IV [...] No Known Allergies (02/24/20) at 0016 at 1259 RPT #: [id number] END OF REPORT 2020-02-23 [facility] 19:23:00-00:00 [facility] ([facility]) EMERGENCY PROVIDER REPORT REPORT#:[id number] REPORT STATUS: Signed DATE:02/23/20 TIME:1922 PATIENT: DORA MCNEILL UNIT #: [id number] ROOM/BED: [place] [address] : 70 AGE: 50 SEX: M PCP PHYS: No Primar y or Family Physician SERVICE AUTHOR: Susana Meza I FLOAT BUILDER * ALL edits or amendments must be made on the [employer] document * HPI-Abd Pain M 40 and Over General Confirmed Patient Yes Patient Type New patient Initial Greet Date/Time 02/23/20 184 Presentation Chief Complaint Abdominal pain, Constipation, ab [...] % (Auto) (20.5 - 51.1 %) 36.6 Dawson % (Auto) (1.7 - 9.3 %) 10.0 H Eos % (Auto) (0.0 - 6.0 %) 2.6 Baso % (Auto) (0.0 - 2.0 %) 0.6 Neut # (Auto) (1.8 - 7.6 K/mm3) 2.4 Lymph # (Auto) (0.6 - 3.0 K/mm3) 1.7 Dawson # (Auto) (0.2 - 1.5 K/mm3) 0.5 Eos # (Auto) (0.0 - 0.4 K/mm3) 0.1 Baso # (Auto) (0.0 - 0.2 K/mm3) 0.0 Abs Immat Gran (auto) (0.00 - 0.03 x10 3/uL) 0. 01 Add Manual Diff (CRITERIA DIFF/SCN) NO Nucleated RBC % (0.0 - 1.0 /100WBC%) 0.0 Serology SARS-CoV-2 IgG/IgM Ag Rapid (Negative) NEGATIV E Microbiology: Date/Time Procedure - Status Source Growth [...] normal ECG #1 Interpretation Date 02/23/20 Time 3 Interpreted by ED physician (Dr. Castellanos) NL ECG Interpretation Normal rate, No STEMI Rate 72 Re-Evaluation [facility] )( Re-Evaluation/Progress #1 Time of Re-Eval 2121 [...] X1ED STA 02/22 1915 DC IV 02/22 Diagnostic Agents Sig/Elena Start time Last Medication Dose Route Stop Time Status Admin Iopamidol 100 ML .STK-MED ONE 02/22 2105 DC IV 02/22 Iopamidol 0 .STK-MED ONE 02/22 2103 DC .ROUTE Electrolytic, Caloric, And Yovanny Sig/Elena Start time Last Medication Dose Route Stop Time Status Admin Sodium Chloride 1,000 ML .[id number] 02/22 2145 AC 02/23 IV 02/25 2031 1039 Sodium Chloride 50 ML .STK-MED ONE 02/23 2104 D C 02/22 IV 02/22 Sodium Chloride 50 ML .STK-MED ONE 02/22 2103 D C IV Sodium Chloride 1,000 ML X1ED STA 02/22 1915 DC 02/22 IV 02/22 Gastrointestinal Drugs Sig/Elena Start time Last Medication Dose Route Stop Time Status Admin Ondansetron HCl 4 MG Q4H PRN PRN 02/22 2145 AC IV 03/24 2144 Ondansetron HCl 4 MG X1ED STA 02/22 1915 DC IV 02/22 Consultation Consultation Referral/Consult Name Jay Mayo MD Business Process Architect Called Gastroenterology Requested Call Time 2122 Requested [...] communicated with the staff or medical p aniyaher taking over this patient's care. Electronically Signed by Susana Meza I FLOAT BUILDER on 0 02/24/20 at 1311 RPT #: [id number] END OF REPORT 2020-02-23 [facility] 19:23:00-00:00 [facility]) EMERGENCY PROVIDER REPORT REPORT#:[id number] REPORT STATUS: Signed DATE:02/23/20 TIME:1922 PATIENT: DORA MCNEILL UNIT #: [id number] ROOM/BED: [place] [address] : 70 AGE: 50 SEX: M PCP PHYS: No Primar y or Family Physician SERVICE AUTHOR: Susana Meza I FLOAT BUILDER * ALL edits or amendments must be made on the [employer]/computer document * Susana Meza 02/23/201922: HPI-Abd Pain M 40 and Over General [...] % (Auto) (20.5 - 51.1 %) 36.6 Dawson % (Auto) (1.7 - 9.3 %) 10.0 H Eos % (Auto) (0.0 - 6.0 %) 2.6 Baso % (Auto) (0.0 - 2.0 %) 0.6 Neut # (Auto) (1.8 - 7.6 K/mm3) 2.4 Lymph # (Auto) (0.6 - 3.0 K/mm3) 1.7 Dawson # (Auto) (0.2 - 1.5 K/mm3) 0.5 [...] bowel obstruction. Impression By: [email or web address] - Marybel José, M.D. RADIOLOGY - XR CHEST 1 V 02/22 2054 Report Impression - Status: SIGNED Entered: 02/23/20202106 IMPRESSION: 1. No acute cardiopulmonary disease. 2. Chronic colonic air distention unchanged. Impression By: Alanis Quijano MD Lab Imaging Statement Laboratory radiographic [...] X1ED STA 02/22 1915 DC IV 02/22 Diagnostic Agents Sig/Elena Start time Last Medication Dose Route Stop Time Status Admin Iopamidol 100 ML .STK-MED ONE 02/22 2105 DC IV 02/22 Iopamidol 0 .STK-MED ONE 02/22 2103 DC .ROUTE Electrolytic, Caloric, And Yovanny Sig/Elena Start time Last Medication Dose Route Stop Time Status Admin Sodium Chloride 1,000 ML .[id number] 02/22 2145 AC 02/23 IV 02/25 2031 [...] Consultation Consultation Referral/Consult Name Jay Mayo MD Business Process Architect Called Gastroenterology Requested Call Time 2122 Requested Call Date 02/23/20 Patient Discharge Departure Vital Signs/Condition Vital Signs First Documented: Result Date Time Pulse Ox 99 02/22 1915 B/P 128/78 02/22 191 B/P Mean 94 02/22 1915 O2 Delivery [...] Disposition Decision Admit Admit Physician Name Mark Perae MD Admit Physician Hospitalist Request Time 2129 [...] Saw Pt Alone I have reviewed the PA/FLOAT BUILDER's note and plan of car e. I was available for consultation as needed at al l times during the patient's visit in the emergency department. I agree with the clinical impression , plan and disposition. Electronically Signed by Susana Meza NP on 0 02/24/20 at 1311 Electronically Signed by Evin Castellanos MD on at 1620 RPT #: [id number] END OF REPORT 2020-02-23 [id number] [facility] 19:23:00-00:00 [facility] [id number] [place] [id number] PATIENT NAME: DORA MCNEILL ADMIT DATE: 10/13 ACCOUNT NO: [id number] ROOM NO: [facility] AGE: 50 REPORT TYPE: eELECTROCARDIOGRAM SEX: M ADMITTING PHYSICIAN: Mark Perea MD ATTENDING PHYSICIAN: Mark Perea MD Order: [id number] Test Reason : ABD PAIN Test Date/Time [...] with ECG of 13-DEC-2019 18:18, (Un confirmed) ID interval has increased QRS axis shifted left Inferior-posterior infarct is now present Inverted T waves have replac ed nonspecific T wave abnormality in Inferior leads Confirmed by MD Pily, Arielle ([id number]) on 10:56:19 AM Referred By: Self Referred Confirmed by:Arielle stanley MD at 1056 PATIENT NAME: DORA MCNEILL ACCOUNT #: [id number] 2020-02-19 [facility] 12:57:00-00:00 [facility] Hospitalist Discharge Summary REPORT#:[id number] REPORT STATUS: Signed DATE:02/19/20 TIME:1257 PATIENT: DORA MCNEILL UNIT #: [id number] ROOM/BED: [place] [address] : 70 AGE: 50 SEX: M ATTEND: Shreyas Nova MD ADM AUTHOR: Leonidas Robertson MD * ALL edits or amendments must be made on the [employer]/computer document * PCP PCP Discharge to: home [...] Musculoskeletal: normal inspection, straight leg raise neg Neuro/FIELD CROP HARVEST CONTRACTOR: alert, oriented X 3, normal speech, n [...] (4.70 - 6.10 M/mm3) 3.92 L 02/18 506 Hgb (12.3 - 15.9 G/DL) 11.6 L 02/18 0506 Hct (35.8 - 46.7 %) 36.7 02/18 0506 MCV (86.3 - 98.9 Fl) 93.6 02/18 0506 MCH (28.9 - 34.4 pg) 29.6 02/18 0506 MCHC (32.1 - 34.5 G/DL) 31.6 L 02/18 506 RDW (11.5 - 14.5 SD) 13.5 02/18 506 Plt Count (150 - 450 K/mm3) 179 02/18 506 MPV (7.0 - 9.6 fL) 10.50 H 02/18 050 Neut % (Auto) (40 - 76 %) 46.9 02/18 050 Lymph % (Auto) (20.5 - 51.1 %) 39.9 02/18 0506 Dawson % (Auto) (1.7 - 9.3 %) 9.6 H 02/18 050 Eos % (Auto) (0.0 - 6.0 %) 2.5 02/18 506 Baso % (Auto) (0.0 - 2.0 %) 0.8 02/18 506 Neut # (Auto) (1.8 - 7.6 K/mm3) 1.7 L 02/18 Lymph # (Auto) (0.6 - 3.0 K/mm3) 1.4 / 050 Dawson # (Auto) (0.2 - 1.5 K/mm3) 0.3 02/18 506 Eos # (Auto) (0.0 - 0.4 K/mm3) 0.1 02/18 506 Baso # (Auto) (0.0 - 0.2 K/mm3) 0.0 02/18 506 Abs Immat Gran (auto) (0.00 - 0.03 x10 3/uL) 0. 01 06/28 0506 Add Manual Diff (CRITERIA DIFF/SCN) NO 02/18 05 06 Nucleated RBC % (0.0 - 1.0 /100WBC%) 0.0 02/18 0506 Serology Nasal/Oral COVID-19 PCR (NEGATIVE) Negative 0513 Radiology data: xray abdomen Electronically Signed by Leonidas Robertson MD on 0 03/13/20 at 1738 RPT #: [id number] END OF REPORT 2020-02-19 [facility] 10:46:00-00:00 [facility]) General Surgery Progress Note REPORT#:[id number] REPORT STATUS: Signed DATE:02/19/20 TIME:1046 PATIENT: DORA MCNEILL UNIT #: [id number] ROOM/BED: [place] [address] : 70 AGE: 50 SEX: M ATTEND: Shreyas Nova MD ADM AUTHOR: Chucky Armstrong MD * ALL edits or amendments must be made on the [employer]/computer document * Subjective Patient reports: Yes: bowel [...] on 01/23 04/12 at 1048 RPT #: [id number] END OF REPORT 2020-02-18 [facility] 13:20:00-00:00 [facility] ([facility]) Hospitalist Progress Note REPORT#:[id number] REPORT STATUS: Signed DATE:02/18/20 TIME:1320 PATIENT: DORA MCNEILL UNIT #: [id number] ROOM/BED: [place] [address] : 70 AGE: 50 SEX: M ATTEND: Katya Nova MD ADM AUTHOR: Leonidas Robertson MD * ALL edits or amendments must be made on the [employer]/computer document * Subjective Chief Complaint: Abdominal distention [...] PRN IV (DC) Sodium Chloride 1,000 ML .[id number] IV Physical Exam General appearance: alert, awake, [...] Musculoskeletal: normal inspection, straight leg raise neg Neuro/[employer]: alert, oriented X 3, normal speech, n [...] es timate Glucose (70 - 110 MG/DL) 82 Calcium [...] % (Auto) (20.5 - 51.1 %) 27.2 Dawson % (Auto) (1.7 - 9.3 %) 8.4 Eos % (Auto) (0.0 - 6.0 %) 1.8 Baso % (Auto) (0.0 - 2.0 %) 0.8 Neut # (Auto) (1.8 - 7.6 K/mm3) 2.4 Lymph # (Auto) (0.6 - 3.0 K/mm3) 1.0 Dawson # (Auto) (0.2 - 1.5 K/mm3) 0.3 [...] on 0 02/18/20 at 1325 RPT #: [id number] END OF REPORT 2020-02-18 [facility] 12:06:00-00:00 [facility] ([facility]) General Surgery Progress Note REPORT#:[id number] REPORT STATUS: Signed DATE:02/18/20 TIME:1206 PATIENT: DORA MCNEILL UNIT #: [id number] ROOM/BED: [address] : 70 AGE: 50 SEX: M ATTEND: Shreyas Nova MD ADM AUTHOR: Chucky Armstrong MD * ALL edits or amendments must be made on the el [employer]/computer document * Subjective Patient reports: Yes: feeling [...] on 01/23 03/12 at 1208 RPT #: [id number] END OF REPORT 2020-02-17 [facility] 14:31:00-00:00 [facility]) Clinical Note REPORT#:[id number] REPORT STATUS: Signed DATE:02/17/20 TIME:143 PATIENT: DORA MCNEILL UNIT #: [id number] ROOM/BED: [place] [address] : 70 AGE: 50 SEX: M ATTEND: Shreyas Nova MD ADM AUTHOR: Leonidas Robertson MD * ALL edits or amendments must be made on the [employer] document * Clinical Note Note: 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 We will keep t he patient n.p.o. IV fluids symptomatic management. general surgery on board will follow up with the recommendation Electronically Signed by Leonidas Robertson MD on 0 02/17/20 at 1432 RPT #: [id number] END OF REPORT 2020-02-17 [facility] 02:54:00-00:00 [facility]) Hospitalist History Physical REPORT#:[id number] REPORT STATUS: Signed DATE:02/17/20 TIME:0254 PATIENT: DORA MCNEILL UNIT #: [id number] ROOM/BED: [place] [address] : 70 AGE: 50 SEX: M ATTEND: Shreyas Nova MD ADM AUTHOR: Ted Coleman NP * ALL edits or amendments must be made on the [employer]/computer document * History of Present Illness HPI Chief complaint: no bm x 2 days PCP: PCP: No Primary or Family Physician HPI: 50 y/o male that comes in wi th PMHx of bowel resection. Patient was transferred from [facility]. Patient has diag nosis of megacolon [...] PRN PRN IV Sodium Chloride 1,000 ML .[id number] IV Physical Exam General appearance: alert, a [...] Musculoskeletal: normal inspection, straight leg raise neg Neuro/FIELD CROP HARVEST CONTRACTOR: alert, oriented X 3, normal speech, n o motor deficits, no sensory deficits [place] Coma Score: [place] Coma Score: Response Value [place] eyes: eyes open spontaneously 4 [place] speech: oriented 5 [place] motor: obeys commands [...] Current BMI: 20.5 BMI status/follow-up: nml BMI,no professor of counseling needed HTN Screening/Follow-up Last documented vitals: Last Documented: Result Date Time Pulse Ox 98 02/16 0243 B/P 140/83 02/16 0243 B/P Mean 102 02/16 0243 Pulse 59 02/16 0243 Resp 16 02/16 0243 Temp 97.7 02/15 2350 B/P assess/follow-up: pre-existing hx of HTN at 0305 RPT #: [id number] END OF REPORT 2020-02-17 [facility] 02:54:00-00:00 [facility] ([facility]) Hospitalist History Physical REPORT#:[id number] REPORT STATUS: Signed DATE:02/17/20 TIME:253 PATIENT: DORA MCNEILL UNIT #: [id number] ROOM/BED: [place] [address] : 70 AGE: 50 SEX: M ATTEND: Shreyas Nova MD ADM AUTHOR: Ted Coleman NP * ALL edits or amendments must be made on the el [employer]/computer document * Ted Coleman NP 02/17/20253: History of Present Illness HPI Chief complaint: no bm x 2 days PCP: PCP: No Primary or Family Physician HPI: 50 y/o male that comes in wi th PMHx of bowel resection. Patient was transferred from [facility]. Patient has diag nosis of megacolon [...] PO Hydrocodone Bitart/Acetaminophen 1 TAB Q4H PRN PRN PO Ondansetron HCl 4 MG Q4H PRN PRN IV Sodium Chloride 1,000 ML .[id number] IV Physical Exam General appearance: alert, a [...] Musculoskeletal: normal inspection, straight leg raise neg Neuro/FIELD CROP HARVEST CONTRACTOR: alert, oriented X 3, normal speech, n o motor deficits, no sensory deficits [place] Coma Score: [place] Coma Score: Response Value [place] eyes: eyes open spontaneously 4 [place] speech: oriented 5 [place] motor: obeys commands 6 Total 15 Skin: [...] Current BMI: 20.5 BMI status/follow-up: nml BMI,no professor of counseling needed HTN Screening/Follow-up Last documented vitals: Last Documented: Result Date Time Pulse Ox 98 02/16 0243 B/P 140/83 02/16 0243 B/P Mean 102 02/16 0243 Pulse 59 02/16 0243 Resp 16 02/16 024 Temp 97.7 02/15 2350 B/P assess/follow-up: pre-existing hx of HTN at 0305 Electronically Signed by Coco Nova MD on 01/23 02/10 at 0802 RPT #: [id number] END OF REPORT 2020-02-17 [facility] 02:54:00-00:00 [facility] ([facility]) Hospitalist History Physical REPORT#:[id number] REPORT STATUS: Signed DATE:02/17/20 TIME:025 PATIENT: DORA MCNEILL UNIT #: [id number] ROOM/BED: [place] [address] : 70 AGE: 50 SEX: M ATTEND: Shreyas Nova MD ADM AUTHOR: Ted Coleman NP * ALL edits or amendments must be made on the [employer]/computer document * Ted Coleman NP 02/17/20 0254: History of Present Illness HPI Chief complaint: no bm x 2 days PCP: PCP: No Primary or Family Physician HPI: 50 y/o male that comes in wi th PMHx of bowel resection. Patient was transferred from [facility]. Patient has diag nosis of megacolon [...] PRN PRN IV Sodium Chloride 1,000 ML .[id number] IV Physical Exam General appearance: alert, a [...] Musculoskeletal: normal inspection, straight leg raise neg Neuro/FIELD CROP HARVEST CONTRACTOR: alert, oriented X 3, normal speech, n o motor deficits, no sensory deficits [place] Coma Score: [place] Coma Score: Response Value [place] eyes: eyes open spontaneously 4 [place] speech: oriented 5 [place] motor: obeys commands 6 Total 15 Skin: [...] Current BMI: 20.5 BMI status/follow-up: nml BMI,no professor of counseling needed HTN Screening/Follow-up Last documented vitals: Last Documented: Result Date Time Pulse Ox 98 02/16 0243 B/P 140/83 02/16 0243 B/P Mean 102 02/16 0243 Pulse 59 02/16 0243 Resp 16 02/16 0243 Temp 97.7 02/15 2350 B/P assess/follow-up: pre-existing hx of HTN at 0305 Electronically Signed by Coco Nova MD on 01/23 02/10 at 0802 at 1106 RPT #: [id number] END OF REPORT 2020-02-17 [facility] 00:07:00-00:00 [facility] ([facility]) EMERGENCY PROVIDER REPORT REPORT#:[id number] REPORT STATUS: Signed DATE:02/17/20 TIME:0007 PATIENT: DORA MCNEILL UNIT #: [id number] ROOM/BED: [place] [address] : 70 AGE: 50 SEX: M PCP PHYS: No Primar y or Family Physician SERVICE AUTHOR: Sukhwinder Bradshaw MD * ALL edits or amendments must be made on the [employer]/computer document * HPI-Abd Pain M 40 and Over General Confirmed Patient Yes Patient Type New patient Initial Greet Date/Time 02/16/20 2352 Presentation Chief Complaint Abdominal pain, Constipation Sudden in Onset? No Free Text HPI Notes Free Text HPI Notes Patient presents emergency department as wiley malik from [facility]. Patient has diagnosis of megacolon and [...] 02/15 2350 Pulse 63 02/15 2350 Resp 02/15 Last Documented: Result Date Time Pulse Ox [...] Date/Time Procedure - Status Source Growth 02/16 22 MRSA Screen - ORD NASAL Re-Evaluation MDM [...] Time Status Admin Sodium Chloride 1,000 ML .[id number] 02/16 0030 AC 02/16 IV 02/16 2321 0034 Gastrointestinal Drugs Sig/Elena Start time Last [...] )( Admission Accepts Yes )( Accepted Time 002 )( Accepted Date 02/17/20 Call Information will see patient, agrees with eval, agrees with plan Discharge/Care Plan Referrals No Primary or Family Physician (PCP/Family) Electronically Signed by Sukhwinder Bradshaw MD on 0 02/17/20 at 0641 RPT #: [id number] END OF REPORT 2020-01-11 [facility] 14:31:00-00:00 [facility] ([facility]) Hospitalist Discharge Summary REPORT#:[id number] REPORT STATUS: Signed DATE:01/11/20 TIME:1431 PATIENT: DORA MCNEILL UNIT #: [id number] ROOM/BED: [place] [address] : 70 AGE: 49 SEX: M ATTEND: Lucia Perea MD ADM AUTHOR: Coco Nova MD * ALL edits or amendments must be made on the el [employer]/computer document * PCP PCP PCP: PCP: No [...] MD on 12/23 at 1434 RPT #: [id number] END OF REPORT 2020-01-11 [facility] 12:44:00-00:00 [facility] ([facility]) Gastroenterology Progress Note REPORT#:[id number] REPORT STATUS: Signed DATE:01/11/20 TIME:1244 PATIENT: DORA MCNEILL UNIT #: [id number] ROOM/BED: [place] [address] : 70 AGE: 49 SEX: M ATTEND: Lucia Perea MD ADM AUTHOR: Verona Frost PA-C * ALL edits or amendments must be made on the [employer]/computer document * Subjective Chief Complaint: abdominal distention [...] moves all, no cyanosis Musculoskeletal: normal inspection Neuro/FIELD CROP HARVEST CONTRACTOR: alert, oriented X 3 Skin: dry, intact [...] PA-C on 12/23 at 1247 RPT #: [id number] END OF REPORT 2020-01-11 [facility] 12:44:00-00:00 [facility] ([facility]) Gastroenterology Progress Note REPORT#:[id number] REPORT STATUS: Signed DATE:01/11/20 TIME:1244 PATIENT: DORA MCNEILL UNIT #: [id number] ROOM/BED: [place] [address] : 70 AGE: 49 SEX: M ATTEND: Lucia Perea MD ADM AUTHOR: Verona Frost PA-C * ALL edits or amendments must be made on the [employer]computer document * Verona Frost 01/11/20 1244: Subjective [...] moves all, no cyanosis Musculoskeletal: normal inspection Neuro/FIELD CROP HARVEST CONTRACTOR: alert, oriented X 3 Skin: dry, intact [...] ngs, and assessment/plan as documented by the PA, and as amended herein by me Electronically Signed by Verona Frost PA-C on 12/23 at 1247 at 1659 RPT #: [id number] END OF REPORT 2020-01-10 [facility] 17:55:00-00:00 [facility] Hospitalist Progress Note REPORT#:[id number] REPORT STATUS: Signed DATE:01/10/20 TIME:1754 PATIENT: DORA MCNEILL UNIT #: [id number] ROOM/BED: [place] [address] : 70 AGE: 49 SEX: M ATTEND: Lucia Perea MD ADM AUTHOR: Coco Nova MD * ALL edits or amendments must be made on the [employer]/computer document * Subjective Chief Complaint: Abdominal pain [...] range of motion, straight leg raise neg Neuro/FIELD CROP HARVEST CONTRACTOR: alert, oriented X 3, no motor deficit [...] distension start IV reglan, connect ng to WS and place rectal tube I will [...] when cleared by GI: per GI lea kush in am Electronically Signed by Coco Nova MD on 12/22 05/13 at 1758 RPT #: [id number] END OF REPORT 2020-01-10 [facility] 12:32:00-00:00 [facility] ([facility]) Gastroenterology Progress Note REPORT#:[id number] REPORT STATUS: Signed DATE:01/10/20 TIME:1232 PATIENT: DORA MCNEILL UNIT #: [id number] ROOM/BED: [place] [address] : 70 AGE: 49 SEX: M ATTEND: Lucia Perea MD ADM AUTHOR: Verona Frost PA-C * ALL edits or amendments must be made on the [employer]/computer document * Subjective Chief Complaint: abdominal distention HPI: patient feels much better after colonoscopy deco mpression he denies abdominal pain no nausea and vomiting reports he is passing flatus Review of Systems Free Text ROS Notes Free Text ROS Notes: 14 body systems reviewed and negative otherwise stated in HPI Objective General VS/I O: Last Documented: Result Date Time Pulse Ox 98 01/09 111 B/P 115/81 01/09 111 B/P Mean 92.3 01/09 1119 O2 Delivery Room air 01/09 111 Temp 97.9 01/09 111 Pulse 69 01/09 1119 Resp 18 01/09 [...] moves all, no cyanosis Musculoskeletal: normal inspection Neuro/FIELD CROP HARVEST CONTRACTOR: alert, oriented X 3 Skin: dry, intact [...] % (Auto) (20.5 - 51.1 %) 38.3 Dawson % (Auto) (1.7 - 9.3 %) 11.5 H Eos % (Auto) (0.0 - 6.0 %) 3.1 Baso % (Auto) (0.0 - 2.0 %) 1.0 Neut # (Auto) (1.8 - 7.6 K/mm3) 1.77 L Lymph # (Auto) (0.6 - 3.0 K/mm3) 1.5 Dawson # (Auto) (0.2 - 1.5 K/mm3) 0.4 Eos # (Auto) (0.0 - 0.4 K/mm3) 0.1 Baso # (Auto) (0.0 - 0.2 K/mm3) 0.0 Add Manual Diff (CRITERIA DIFF/SCN) NO Radiology Data: Recent Impressions: RADIOLOGY - XR ABDOMEN 1 V 01/09 5279 Report Impression - Status: SIGNED Entered: 01/10/2020 [...] on 12/22 05/13 at 1238 RPT #: [id number] END OF REPORT 2020-01-10 [facility] 12:32:00-00:00 [facility] ([facility] Gastroenterology Progress Note REPORT#:[id number] REPORT STATUS: Signed DATE:01/10/20 TIME:1232 PATIENT: DORA MCNEILL UNIT #: [id number] ROOM/BED: [place] [address] : 70 AGE: 49 SEX: M ATTEND: Lucia Perea MD ADM AUTHOR: Verona Frost PA-C * ALL edits or amendments must be made on the [employer]/computer document * Verona Frost 01/10/20 1232: Subjective [...] moves all, no cyanosis Musculoskeletal: normal inspection Neuro/FIELD CR[employer] HARVEST CONTRACTOR: alert, oriented X 3 Skin: dry, intact [...] % (Auto) (20.5 - 51.1 %) 38.3 Dawson % (Auto) (1.7 - 9.3 %) 11.5 H Eos % (Auto) (0.0 - 6.0 %) 3.1 Baso % (Auto) (0.0 - 2.0 %) 1.0 Neut # (Auto) (1.8 - 7.6 K/mm3) 1.77 L Lymph # (Auto) (0.6 - 3.0 K/mm3) 1.5 Dawson # (Auto) (0.2 - 1.5 K/mm3) 0.4 [...] ngs, and assessment/plan as documented by the PA, and as amended herein by me Acute on chronic colonic dilation Clinically much improved Advance diet KUB in AM Bowel regimen-Miralax BID Anticipate discharge in AM Electronically Signed by Verona Frost PA-C on 12/22 05/13 at 1238 at 1301 RPT #: [id number] END OF REPORT 2020-01-09 [facility] 13:39:00-00:00 [facility] ([facility]) Post Anesthesia Evaluation REPORT#:[id number] REPORT STATUS: Signed DATE:01/09/20 TIME:1339 PATIENT: DORA MCNEILL UNIT #: [id number] ROOM/BED: [place] [address] : 70 AGE: 49 SEX: M ATTEND: Lucia Perea MD ADM AUTHOR: Simi Albert MD * ALL edits or amendments must be made on the [employer]/computer document * General Post-op: post surgery rounds Post Anesthesia Evaluation Anes. changes from pre-op eval ORM Surgeries: Surgery Date and Time: 01/09/2020 1000 Proposed Primary Procedure: COLONOSCOPY Anesthetic: TIVA Date: 01/09/20 Level of consciousness: paty ent awake, able to answer questions, participate in this eval. Vital signs: Last Documented: Result Date Time Pulse Ox 93 01/08 1129 B/P 118/77 01/08 1129 B/P Mean 90.9 01/08 1129 O2 Delivery Room air 01/08 1129 Temp 36.5 01/08 1129 Pulse 50 01/08 1129 Resp 18 01/08 1129 FiO2 21 01/08 0808 Cardiovascular: CV system stable, vital signs st able Respiratory/Airway: respiratory system stable, m aintains without support Pain: adequately controlled Hydration: adequate Temp status: greater than 96.8F, normothermic Presence of N/V: no Anesthesia complications: no Other changes requiring f/u: none Conclusions: no apparent anes. issues Electronically Signed by Simi Albert MD on 12/22 04/12 at 1340 RPT #: [id number] END OF REPORT 2020-01-09 [facility] 10:13:00-00:00 [facility] ([facility]) Hospitalist Progress Note REPORT#:[id number] REPORT STATUS: Signed DATE:01/09/20 TIME:1013 PATIENT: DORA MCNELIL UNIT #: [id number] ROOM/BED: [place] [address] : 70 AGE: 49 SEX: M ATTEND: Lucia Perea MD ADM AUTHOR: Mark Perea MD * ALL edits or amendments must be made on the [employer] document * Subjective Chief Complaint: Abdominal pain [...] range of motion, straight leg raise neg Neuro/FIELD CROP HARVEST CONTRACTOR: alert, oriented X 3, no motor deficit [...] PT Patient/Control Mix (9.3 - 12.9 SECONDS) 13. 1 H Laboratory Tests 01/08 0600 Hematology WBC [...] % (Auto) (20.5 - 51.1 %) 24.4 Dawson % (Auto) (1.7 - 9.3 %) 10.4 H Eos % (Auto) (0.0 - 6.0 %) 2.2 Baso % (Auto) (0.0 - 2.0 %) 0.2 Neut # (Auto) (1.8 - 7.6 K/mm3) 2.85 Lymph # (Auto) (0.6 - 3.0 K/mm3) 1.1 Dawson # (Auto) (0.2 - 1.5 K/mm3) 0.5 [...] negat ector and tolerates p.o. at 1536 RPT #: [id number] END OF REPORT 2020-01-09 [id number] [facility] 09:56:00-00:00 [facility] [id number] [place] [address] PATIENT NAME: DORA MCNEILL ADMIT DATE: ACCOUNT NO: [id number] ROOM NO: LPO8 AGE: 49 REPORT TYPE: ENDOSCOPY REPORT SEX: M ADMITTING PHYSICIAN: Mark Perea MD ATTENDING PHYSICIAN: Mark Perea MD Patient Name: Dora Mcneill Procedure Date: [...] l was performed, and patient medications and allergie s were reviewed. The risks and benefits of the procedu re and the sedation options and risks were discussed w ith the patient. All questions were answered and inform ed consent was obtained. Patient identification an d proposed procedure were verified by the physici an, the nurse, the user experience lead and the robotic weld technician in [facility] procedure room. Mental Status Examination: norm al. Airway Examination: normal oropharyngeal airway and neck mobility. Respiratory Examination: clear to auscultation. CV Examination: normal. Prophylac tic Antibiotics: The patient does not require proph ylactic antibiotics. Prior Anticoagulants: The patient has taken no previous anticoagulant or antiplatelet agent s. After reviewing the risks and benefits, the patient was deemed in satisfactory condition to undergo the [...] of the patient was re-assessed after the proced ure. After I obtained informed consent, the scope wa s passed PATIENT NAME: DORA MCNEILL ACCOUNT #: [id number] under direct vision. Throughout the procedure, the patient's blood pressure, pulse, and oxygen sat urations were monitored continuously. The Colonoscope wa s introduced through the anus and advanced to th e cecum, identified by appendiceal orifice and ileocecal [...] specimens collected. Recommendation: - Return patient to [facility] for ongoing care. - Perform a flat plate abdominal x-ray tomorrow . - Clear liquid diet today. Jay Mayo MD 01/09/2020 10:22:04 AM This report has been signed electronically. Number of Addenda: 0 Note Initiated On: 01/09/2020 9:56 AM Estimated Blood Loss: Estimated blood loss was minimal. [address] [place] [address] Provation {[id number] ProVation FT PDF at 1022 PATIENT NAME: DORA MCNEILL ACCOUNT #: [id number] 2020-01-08 [facility] 12:30:00-00:00 [facility] Hospitalist Progress Note REPORT#:[id number] REPORT STATUS: Signed DATE:01/08/20 TIME:1230 PATIENT: DORA MCNEILL UNIT #: [id number] ROOM/BED: [place] [address] : 70 AGE: 49 SEX: M ATTEND: Lucia Perea MD ADM AUTHOR: Coco Nova MD * ALL edits or amendments must be made on the [employer]/computer document * Subjective Chief Complaint: No abd [...] range of motion, straight leg raise neg Neuro/[employer] HARVEST [employer]OR: alert, oriented X 3, no motor deficit [...] for now Pat reports some improvement 01/07 signed off- see notes per GI Dr [...] on 12/22 03/12 at 1233 RPT #: [id number] END OF REPORT 2020-01-08 [facility] 11:52:00-00:00 [facility] ([facility]) Gastroenterology Progress Note REPORT#:[id number] REPORT STATUS: Signed DATE:01/08/20 TIME:1152 PATIENT: DORA MCNEILL UNIT #: [id number] ROOM/BED: [place] [address] : 70 AGE: 49 SEX: M ATTEND: Lucia Perea MD ADM AUTHOR: Andre Solano * ALL edits or amendments must be made on the el [employer]/computer document * Subjective Chief Complaint: abdominal distention [...] moves all, no cyanosis Musculoskeletal: normal inspection Neuro/[employer] HARVEST [employer]OR: alert, oriented X 3 Skin: dry, intact [...] Ratio (1.2 - 2.2 RATIO) 1.3 01/07 1605 1605 Chemistry Sodium (134 - 147 [...] (Auto) (20.5 - 51.1 %) 26.1 36.8 Dawson % (Auto) (1.7 - 9.3 %) 9.7 H 11.3 H Eos % (Auto) (0.0 - 6.0 %) 2.7 2.6 Baso % (Auto) (0.0 - 2.0 %) 0.4 0.4 Neut # (Auto) (1.8 - 7.6 K/mm3) 3.16 1.13 L Lymph # (Auto) (0.6 - 3.0 K/mm3) 1.4 0.9 Dawson # (Auto) (0.2 - 1.5 K/mm3) 0.5 [...] Andre Solano on at 1209 RPT #: [id number] END OF REPORT 2020-01-08 [facility] 11:52:00-00:00 [facility] ([facility]) Gastroenterology Progress Note REPORT#:[id number] REPORT STATUS: Signed DATE:01/08/20 TIME:1152 PATIENT: DORA MCNEILL UNIT #: [id number] ROOM/BED: [place] [address] : 70 AGE: 49 SEX: M ATTEND: Lucia Perea MD ADM AUTHOR: Andre Solano * ALL edits or amendments must be made on the [employer]/computer document * Subjective Chief Complaint: abdominal distention [...] Result Date Time Pulse Ox 99 01/07 112 B/P 120/80 01/07 112 B/P Mean 93.7 01/07 1126 O2 Delivery Room air 01/07 112 Temp 36.5 01/07 112 Pulse 73 01/07 112 Resp 16 01/07 112 24 hour I O ending at 0700: [...] moves all, no cyanosis Musculoskeletal: normal inspection Neuro/[employer] HARVEST [employer]OR: alert, oriented X 3 Skin: dry, intact Results Findings/Data: Laboratory Tests 01/08/20 1014: [Embedded Image Not Available] 01/08/20 044: [Embedded Image Not Available] Laboratory Tests 01/07 101 Chemistry Sodium (134 - 147 mmol/L) 140 [...] Ratio (1.2 - 2.2 RATIO) 1.3 01/07 1605 1605 Chemistry Sodium (134 - 147 [...] (Auto) (20.5 - 51.1 %) 26.1 36.8 Dawson % (Auto) (1.7 - 9.3 %) 9.7 H 11.3 H Eos % (Auto) (0.0 - 6.0 %) 2.7 2.6 Baso % (Auto) (0.0 - 2.0 %) 0.4 0.4 Neut # (Auto) (1.8 - 7.6 K/mm3) 3.16 1.13 L Lymph # (Auto) (0.6 - 3.0 K/mm3) 1.4 0.9 Dawson # (Auto) (0.2 - 1.5 K/mm3) 0.5 [...] MD on 0 at 0736 RPT #: [id number] END OF REPORT 2020-01-07 [facility] 15:15:00-00:00 [facility] ([facility]) Pharmacy Progress Note REPORT#:[id number] REPORT STATUS: Signed DATE:01/07/20 TIME:1515 PATIENT: DORA MCNEILL UNIT #: [id number] ROOM/BED: [place] [address] : 70 AGE: 49 SEX: M ATTEND: Lucia Perea MD ADM AUTHOR: Keenan Lerma [facility] * ALL edits or amendments must be made on the [employer] document * Pharmacy Note Medication therapy: Famotidine IV + Pantoprazole IV Indication for treatment: ppx Current therapy: Famotidine 40mg IV bid + Pantoprazole 40mg IV da shannon Vital signs: Vital Signs Date Temp Pulse Resp B/P B/P Mean Pulse Ox FiO2 01/04-01/06 36.4-36.8 61-78 15-18 104-133/68-83 80.2-99.8 95-100 Labs: Laboratory Tests: 01/06 01/05 0620 0525 Chemistry BUN (7 - 18 MG/DL) 11 22 H Creatinine (0.8 - 1.3 MG/DL) 0.7 L 1.0 Prior therapy: Famotidine 20mg q12hr Treatment plan: OK to discon tinue Famotidine 20mg; duplicated with Pantoprazole Regimen: Ok to dc Famotidine 20mg IV bid continue Pantopr azole 40mg per Dr. Nova at 1518 RPT #: [id number] END OF REPORT 2020-01-07 [facility] 13:52:00-00:00 [facility] General Surgery Progress Note REPORT#:[id number] REPORT STATUS: Signed DATE:01/07/20 TIME:1352 PATIENT: DORA MCNEILL UNIT #: [id number] ROOM/BED: [place] [address] : 70 AGE: 49 SEX: M ATTEND: Lucia Perea MD ADM AUTHOR: Anthony Davies MD * ALL edits or amendments must be made on the [employer] document * Subjective Chief Complaint: None HPI: [...] Pulse Resp B/P B/P Mean Pulse Ox FiO 2 01/05-01/06 97.5-98.1 63-72 15- 105-128/68-77 81.7-93.7 95-100 24 hour I O [...] distress Abdomen: no distention Extremities: moves all Neuro/[employer] 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 2. Bowel regimen per GI. 3. Advance diet per GI. 4. General surgery to sign off. Quality Current Medications Current medication review: I attest that the foregoing medication list in [facility] medical record is true, accurate, and complete to the best of my knowled ge. Electronically Signed by Anthony Davies MD on 0 01/07/20 at 1403 RPT #: [id number] END OF REPORT 2020-01-07 [facility] 11:29:00-00:00 [facility] ([facility] Hospitalist Progress Note REPORT#:[id number] REPORT STATUS: Signed DATE:01/07/20 TIME:1129 PATIENT: DORA MCNEILL UNIT #: [id number] ROOM/BED: [place] [address] : 70 AGE: 49 SEX: M ATTEND: Lucia Perea MD ADM AUTHOR: Coco Nova MD * ALL edits or amendments must be made on the [employer] document * Subjective Chief Complaint: Abdominal pain and distention better nausea no BM and no gas today Review of Systems Respiratory: Denies: SOB. Cardiovascular: Denies: chest pain. Neuro: Denies: dizziness. Objective General VS/I O: Vital Signs: Date Time Temp Pulse Resp B/P B/P Pulse O2 O2 F low FiO2 Mean Ox Delivery Rate 01/06 0721 36.6 66 16 109/72 84.6 96 Room air 01/06 0356 36.4 64 15 105/70 81.7 95 Room air 01/05 2357 36.7 63 16 110/68 82.0 100 Room air 01/05 2029 36.7 72 15 128/77 93.7 97 Room [...] range of motion, straight leg raise neg Neuro/FIELD CR[employer] HARVEST CONTRACTOR: alert, oriented X 3, no motor deficit [...] on 12/22 02/10 at 1143 RPT #: [id number] END OF REPORT 2020-01-07 [facility] 11:16:00-00:00 [facility] ([facility]) Gastroenterology Progress Note REPORT#:[id number] REPORT STATUS: Signed DATE:01/07/20 TIME:1116 PATIENT: DORA MCNEILL UNIT #: [id number] ROOM/BED: [place] [address] : 70 AGE: 49 SEX: M ATTEND: Lucia Perea MD ADM AUTHOR: Yas Edwards MD * ALL edits or amendments must be made on the Arm[employer]/computer document * Subjective Chief Complaint: abdominal distention HPI: He reports that his abdomina l distention is much improved. NGT remains to [facility]. Repeat KUB reveals colonic distention. No BM. De nies flatus. Review of Systems Free Text ROS Notes Free Text ROS Notes: Pertinent positives and negatives noted in HPI Objective General VS/I O: Last Documented: Result Date Time Pulse Ox 96 01/06 721 B/P 109/72 01/06 07 B/P Mean 84.6 01/06 07 O2 Delivery Room air 01/06 721 Temp 36.6 01/06 07 Pulse 66 01/06 0721 Resp 16 01/06 0721 24 hour I O ending at 0700: [...] moves all, no cyanosis Musculoskeletal: normal inspection Neuro/[employer]: alert, oriented X 3 Skin: dry, intact [...] % (Auto) (20.5 - 51.1 %) 20.8 Dawson % (Auto) (1.7 - 9.3 %) 7.3 Eos % (Auto) (0.0 - 6.0 %) 2.8 Baso % (Auto) (0.0 - 2.0 %) 0.3 Neut # (Auto) (1.8 - 7.6 K/mm3) 2.72 Lymph # (Auto) (0.6 - 3.0 K/mm3) 0.8 Dawson # (Auto) (0.2 - 1.5 K/mm3) 0.3 [...] anemia - Will follow Progress note by BOOKER ThompsonC. Patient evalua dain with Dr. Edwards and plan of care discussed and agreed upon. Electronically Signed by Yas Edwards MD on 0 at 1130 RPT #: [id number] END OF REPORT 2020-01-06 [facility] 16:23:00-00:00 [facility] ([facility]) Pharmacy Progress Note REPORT#:[id number] REPORT STATUS: Signed DATE:01/06/20 TIME:1623 PATIENT: DORA MCNEILL UNIT #: [id number] ROOM/BED: [place] [address] : 70 AGE: 49 SEX: M ATTEND: Lucia Perea MD ADM AUTHOR: Manuel Oconnell [facility] * ALL edits or amendments must be made on the el [employer]/computer document * Pharmacy Note Medication therapy: Levofloxacin Indication for treatment: Intra-abdominal infection Current therapy: Levofloxacin Treatment plan: initiation of therapy Regimen: Switch to ceftriaxone 1g every [address] Maria Esther Estrada group to auto-switch fluoroquinolone orders for ceftriaxone Electronically Signed by Manuel Oconnell gera morgan 01/06/20 at 1624 RPT #: [id number] END OF REPORT 2020-01-06 [facility] 15:40:00-00:00 [facility] ([facility]) GE Consultation Note REPORT#:[id number] REPORT STATUS: Signed DATE:01/06/20 TIME:1540 PATIENT: DORA MCNEILL UNIT #: [id number] ROOM/BED: [place] [address] : 70 AGE: 49 SEX: M ATTEND: Lucia Perea MD ADM AUTHOR: Verona Frost PA-C * ALL edits or amendments must be made on the el [employer]Joinnus/computer document * Verona Frost 01/06/20 1540: History of Present Illness Chief complaint: abdominal pain HPI: Patient is a 49 year old mal e with past medical history of colon resection with colostomy s/p reversal who [facility] with complaints of LLQ. Patient was reportedly seen at outside [facility] and had CT abdomen/pelvis done which revealed [...] of motion Musculoskeletal: full range of motion Neuro/[employer]: alert, oriented X 3 Skin: dry, intact [...] % (Auto) (20.5 - 51.1 %) 32.5 Dawson % (Auto) (1.7 - 9.3 %) 9.0 Eos % (Auto) (0.0 - 6.0 %) 2.1 Baso % (Auto) (0.0 - 2.0 %) 0.3 Neut # (Auto) (1.8 - 7.6 K/mm3) 2.18 Lymph # (Auto) (0.6 - 3.0 K/mm3) 1.3 Dawson # (Auto) (0.2 - 1.5 K/mm3) 0.4 [...] Judd MD on at 1711 RPT #: [id number] END OF REPORT 2020-01-06 [facility] 15:40:00-00:00 [facility] ([facility]) GE Consultation Note REPORT#:[id number] REPORT STATUS: Signed DATE:01/06/20 TIME:154 PATIENT: DORA MCNEILL UNIT #: [id number] ROOM/BED: [place] [address] : 70 AGE: 49 SEX: M ATTEND: [...] s/p reversal who presented to the hosp [facility] with complaints of LLQ. 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 Patient was admitted to our facility for SBO. NGT was inserted to [facility]. General surgery has been consulted. GI was [...] 01/05 1517 O2 Delivery Room air 01/05 151 Temp 97.7 01/05 1517 Pulse 65 01/05 [...] of motion Musculoskeletal: full range of motion Neuro/[employer]: alert, oriented X 3 Skin: dry, intact [...] % (Auto) (20.5 - 51.1 %) 32.5 Dawson % (Auto) (1.7 - 9.3 %) 9.0 Eos % (Auto) (0.0 - 6.0 %) 2.1 Baso % (Auto) (0.0 - 2.0 %) 0.3 Neut # (Auto) (1.8 - 7.6 K/mm3) 2.18 Lymph # (Auto) (0.6 - 3.0 K/mm3) 1.3 Dawson # (Auto) (0.2 - 1.5 K/mm3) 0.4 Eos # (Auto) (0.0 - 0.4 K/mm3) 0.1 Baso # (Auto) (0.0 - 0.2 K/mm3) 0.0 Add Manual Diff (CRITERIA DIFF/SCN) NO Radiology data: Recent Impressions: RADIOLOGY - XR ABDOMEN 1 V 01/05 50 Report Impression - Status: SIGNED Entered: 01/06/2020 013 Impression: Satisfactory nasogastric tube placement. Impression By: [...] Judd MD on at 1711 RPT #: [id number] END OF REPORT 2020-01-06 [facility] 15:40:00-00:00 [facility] ([facility]) GE Consultation Note REPORT#:[id number] REPORT STATUS: Signed DATE:01/06/20 TIME:1540 PATIENT: DORA MCNEILL UNIT #: [id number] ROOM/BED: [place] [address] : 70 AGE: 49 SEX: M ATTEND: Lucia Perea MD ADM AUTHOR: Verona Frost PA-C * ALL edits or amendments must be made on the Arm[employer]/computer document * MargotVerona 01/06/20 1540: History of Present Illness Chief complaint: abdominal pain HPI: Patient is a 49 year old mal e with past medical history of colon resection with colostomy s/p reversal who presented to the [facility] with complaints of LLQ. Patient was reportedly seen at outside [facility] and had CT abdomen/pelvis done which revealed [...] of motion Musculoskeletal: full range of motion Neuro/[employer]: alert, oriented X 3 Skin: dry, intact [...] % (Auto) (20.5 - 51.1 %) 32.5 Dawson % (Auto) (1.7 - 9.3 %) 9.0 Eos % (Auto) (0.0 - 6.0 %) 2.1 Baso % (Auto) (0.0 - 2.0 %) 0.3 Neut # (Auto) (1.8 - 7.6 K/mm3) 2.18 Lymph # (Auto) (0.6 - 3.0 K/mm3) 1.3 Dawson # (Auto) (0.2 - 1.5 K/mm3) 0.4 [...] Judd MD on at 1711 RPT #: [id number] END OF REPORT 2020-01-06 [facility] 15:40:00-00:00 [facility] ([facility] GE Consultation Note REPORT#:[id number] REPORT STATUS: Signed DATE:01/06/20 TIME:1540 PATIENT: DORA MCNEILL UNIT #: [id number] ROOM/BED: [place] [address] : 70 AGE: 49 SEX: M ATTEND: Lucia Perea MD ADM AUTHOR: Verona Frost PA-C * ALL edits or amendments must be made on the Arm[employer]/computer document * Verona Frost 01/06/20 1540: History of Present Illness Chief complaint: abdominal pain HPI: Patient is a 49 year old mal e with past medical history of colon resection with colostomy s/p reversal who presented to the hosp [facility] with complaints of LLQ. Patient was reportedly seen at outside [facility] and had CT abdomen/pelvis done which revealed [...] 01/05 1517 O2 Delivery Room air 01/05 151 Temp 97.7 01/05 151 Pulse 65 01/05 1517 Resp 16 01/057 24 hour I O ending at 0700: [...] of motion Musculoskeletal: full range of motion Neuro/[employer]: alert, oriented X 3 Skin: dry, intact [...] % (Auto) (20.5 - 51.1 %) 32.5 Dawson % (Auto) (1.7 - 9.3 %) 9.0 Eos % (Auto) (0.0 - 6.0 %) 2.1 Baso % (Auto) (0.0 - 2.0 %) 0.3 Neut # (Auto) (1.8 - 7.6 K/mm3) 2.18 Lymph # (Auto) (0.6 - 3.0 K/mm3) 1.3 Dawson # (Auto) (0.2 - 1.5 K/mm3) 0.4 [...] Judd MD on at 1711 RPT #: [id number] END OF REPORT 2020-01-06 [id number] [facility] 11:55:00-00:00 [facility] [id number] [place] [id number] PATIENT NAME: DORA MCNEILL ADMIT DATE: ACCOUNT NO: [id number] ROOM NO: [facility] AGE: 49 REPORT TYPE: CONSULTATION SEX: M [...] PATIENT NAME: DORA MCNEILL ACCOUNT #: [id number] LABORATORY DATA: White count 3.9, hemoglobin 10. [...] no evidence of mechanical obstruction. This is chronometer tester denise as it was noted on the [...] By: Stephanie Conrad MD WT: CON:L.FAVIAN/YA/LUIS Conf#: [id number]#: [id number] Authenticated and Edited by Stephanie ospina MD On 01/12/20 10:06:42 AM at 1009 PATIENT NAME: DORA MCNEILL ACCOUNT #: [id number] 2020-01-06 [facility] 09:10:00-00:00 [facility] ([facility]) Hospitalist Progress Note REPORT#:[id number] REPORT STATUS: Signed DATE:01/06/20 TIME:909 PATIENT: DORA MCNEILL UNIT #: [id number] ROOM/BED: [place] [address] : 70 AGE: 49 SEX: M ATTEND: Lucia Perea MD ADM AUTHOR: Leonidas Robertson MD * ALL edits or amendments must be made on the Arm[employer]/computer document * Subjective Chief Complaint: Abdominal pain and distention Comments: Patient lying on the bed still distended pain is slightly better. Got worse in the past few days. Had some obstruction 3 to 4 y ears ago and had colostomy at [facility]. Then it was reverted back at [facility] 1 year ago. Surgery do not [...] range of motion, straight leg raise neg Neuro/[employer]OR: alert, oriented X 3, no motor deficit s, no sensory deficits Skin: dry Psychiatry: normal affect, n ormal judgment/insight, normal mood, not homicidal, not suicidal, no hallucinations Results Findings/Data: Laboratory Tests 01/05 0525 Chemistry Sodium (134 - 147 mmol/L) 143 [...] % (Auto) (20.5 - 51.1 %) 32.5 Dawson % (Auto) (1.7 - 9.3 %) 9.0 Eos % (Auto) (0.0 - 6.0 %) 2.1 Baso % (Auto) (0.0 - 2.0 %) 0.3 Neut # (Auto) (1.8 - 7.6 K/mm3) 2.18 Lymph # (Auto) (0.6 - 3.0 K/mm3) 1.3 Dawson # (Auto) (0.2 - 1.5 K/mm3) 0.4 Eos # (Auto) (0.0 - 0.4 K/mm3) 0.1 Baso # (Auto) (0.0 - 0.2 K/mm3) 0.0 Add Manual Diff (CRITERIA DIFF/SCN) NO Radiology data: Recent Impressions: RADIOLOGY - XR ABDOMEN 1 V 01/05 50 Report Impression - Status: SIGNED Entered: 01/06/2020 013 Impression: Satisfactory nasogastric tube placement. Impression By: [...] on 0 01/06/20 at 1327 RPT #: [id number] END OF REPORT 2020-01-05 [facility] 22:24:00-00:00 [facility] ([facility]) Hospitalist History Physical REPORT#:[id number] REPORT STATUS: Signed DATE:01/05/20 TIME:2223 PATIENT: DORA MCNEILL UNIT #: [id number] ROOM/BED: [place] [address] : 70 AGE: 49 SEX: M ATTEND: Lucia Perea MD ADM AUTHOR: Ted Coleman FLOAT BUILDER * ALL edits or amendments must be made on the Arm[employer]/computer document * History of Present Illness HPI [...] Text HPI Notes Free Text HPI Notes: [facility] diagnostics NA 145 K 4.1 CO2 [...] range of motion, straight leg raise neg Neuro/[employer]OR: alert, oriented X 3, no motor deficit s, no sensory deficits [place] Coma Score: [place]am Coma Score: Response Value [place] eyes: eyes open spontaneously 4 [place] speech: oriented 5 [place] motor: obeys commands 6 Total 15 Skin: [...] Current BMI: 19.8 BMI status/follow-up: nml BMI,no professor of counseling needed HTN Screening/Follow-up Last documented vitals: Last Documented: Result Date Time Pulse Ox 97 01/05 0019 B/P 113/73 01/05 0019 B/P Mean 86.3 01/05 0019 O2 Delivery Room air 01/05 001 Temp 97.9 01/05 0019 Pulse 62 01/05 0019 Resp 18 01/05 0019 B/P assess/follow-up: pre-existing hx of HTN Blood pressure ranges/guide: Screening for Hypertension and follow up measure #317 Blood pressure parameters Normal B/P SBP </= 119 DBP </= 79 Pre-hypertensive SBP 120-139 DBP 80-89 Hypertensive SBP >/= 140 DBP >/= 90 at 0027 RPT #: [id number] END OF REPORT 2020-01-05 [facility] 22:24:00-00:00 [facility] ([facility]) Hospitalist History Physical REPORT#:[id number] REPORT STATUS: Signed DATE:01/05/20 TIME:2223 PATIENT: DORA MCNEILL UNIT #: [id number] [facility] : 70 AGE: 49 SEX: M ATTEND: Lucia Perea MD ADM AUTHOR: Ted Coleman NP * ALL edits or amendments must be made on the el ectronic/computer document * Ted Coleman NP 05/14/20 2224: History of Present Illness HPI Chief complaint: [...] Text HPI Notes Free Text HPI Notes: [facility] diagnostics NA 145 K 4.1 CO2 [...] range of motion, straight leg raise neg Neuro/[employer]OR: alert, oriented X 3, no motor deficit s, no sensory deficits [place] Coma Score: [place] Coma Score: Response Value [place] eyes: eyes open spontaneously 4 [place] speech: oriented 5 [place] motor: obeys commands 6 Total 15 Skin: [...] Current BMI: 19.8 BMI status/follow-up: nml BMI,no professor of counseling needed HTN Screening/Follow-up Last documented vitals: Last Documented: Result Date Time Pulse Ox 97 01/05 19 B/P 113/73 01/05 19 B/P Mean 86.3 01/05 19 O2 Delivery Room air 01/05 19 Temp 97.9 01/05 001 Pulse 62 01/05 0019 Resp 18 01/05 19 B/P assess/follow-up: pre-existing hx of HTN Blood pressure ranges/guide: Screening for Hypertension and follow up measure #317 Blood pressure parameters Normal B/P SBP </= 119 DBP </= 79 Pre-hypertensive SBP 120-139 DBP 80-89 Hypertensive SBP >/= 140 DBP >/= 90 at 0027 at 1554 RPT #: [id number] END OF REPORT 2019-12-13 [facility] 20:57:00-00:00 [facility] ([facility]) EMERGENCY PROVIDER REPORT REPORT#:[id number] REPORT STATUS: Signed DATE:12/13/19 TIME: 2056 PATIENT: DORA MCNEILL UNIT #: [id number] ROOM/BED: AGE: 49 SEX: M PCP PHYS: No Primary or Family Ph ysician SERVICE AUTHOR: Juan Jose Avendaño MD * ALL edits or amendments must be made on the Arm[employer] document * HPI-Abd Pain M 40 and Over General Initial Greet Date/Time 12/13/191810 Presentation Chief Complaint Abdominal pain Hx Obtained [...] 2217 O2 Delivery Room air 12/12 1752 Review of Vital Signs Reviewed Basic Physical [...] % (Auto) (23.0 - 38.0 %) 30.6 Dawson % (Auto) (1.0 - 10.0 %) 10.4 H Eos % (Auto) (1.0 - 5.0 %) 1.3 Baso % (Auto) (0.0 - 1.0 %) 0.5 Neut # (Auto) (2.4 - 6.3 K/mm3) 3.5 Lymph # (Auto) (1.2 - 4.0 K/mm3) 1.9 Dawson # (Auto) (0.0 - 0.6 K/mm3) 0.6 Eos # (Auto) (0.0 - 0.7 K/MM3) 0.1 Baso # (Auto) (0.0 - 0.2 K/mm3) 0.0 Immature Gran % (0.0 - 0.4 %) 0.2 Immature Gran # (0.00 - 0.07 x10 3/uL) 0.01 Recent Impressions: RADIOLOGY - XR CHEST 1 V 12/12 1821 Report Impression - Status: SIGNED Entered: 12/13/20191838 Impression: 1. Normal one view chest x-ray. 2. Colonic distention. Impression By: [email or web address] - SHANEL EDWARDS CAT SCAN - CT ABD PELVIS W/O CONT 12/13 1919 Report Impression - Status: SIGNED Entered: 12/13/20191944 IMPRESSION: 1. Marked distention of the transverse colon ess entially unchanged in appearance when compared to the prior study date d 02/28/2013. No definite obstructive lesion is identified given the stability of this finding is likely as a chronic finding. 2. Otherwise unremarkable unenhanced CT scan of abdomen and pelvis. Impression By: [email or web address] Philipp EDWARDS Lab Statement Laboratory studies reviewed and considered in th e medical decision-making. Imaging Statement Radiographic studies reviewed and considered in the medical decision-making. ECG #1 Interpretation Date 12/13/19 Time 1817 Interpreted by ED physician WESLY ECG Interpretation Normal rate, Normal sinus rhythm, No acute ischemic changes, No STEMI, Normal QRS, Normal ST waves, Normal T waves, Normal axis, Normal intervals, No change from prior ECGs, Yenifer quate tracing Rate 65 Re-Evaluation MDM )( Re-Evaluation/Progress #1 )( Re-Eval Status Improved Patient Discharge Departure Vital Signs/Condition Vital Signs First Documented: Result Date Time Pulse Ox 98 12/12 1753 B/P 114/78 12/12 175 B/P Mean 90 12/12 1752 O2 Delivery Room air 12/12 1752 Temp 37.0 12/12 1752 Pulse 74 12/12 1753 Resp 20 12/12 175 Last Documented: Result Date Time Pulse Ox 100 12/12 2217 B/P 143/85 12/12 2217 B/P Mean 104 12/12 2217 Temp 36.6 12/12 2217 Pulse 114 12/12 2217 Resp 24 12/12 221 O2 Delivery Room air 12/12 175 All vital signs available at the time [...] MD on 0 12/14/19 at 1939 RPT #:[id number] END OF REPORT
[2023-04-23 19:32] LABS: Absolute Lymphocytes (CBC) 1.1 K/uL (0.7-4.9); Hematocrit 34.4 % (39.6-49.0); Lymphocytes % 14.7 % (15.3-44.8); MCV 85.1 fL (80-100); MPV 7.9 fL (7.6-11.3); Platelets 231 thou/uL (152-406); RBC Red Blood Cell Count 4.05 M/uL (4.33-5.43)
[2023-04-23 19:40] LABS: Potassium 4.4 mEq/L (3.5-5.1)
--- NOTE | 2023-04-23 21:19 | RAD REPORT ---
EXAM DESCRIPTION: CT - Abdomen Pelvis W Contrast - 04/23/2023 8:16 pm CLINICAL HISTORY: ABD PAIN COMPARISON: Abdomen Pelvis W Contrast dated 12/11/2019; Abdomen Pelvis W Contrast dated 04/02/2019 ; Abdomen Pelvis W Contrast dated 10/17/2016; Abdomen Pelvis W Contrast dated 09/27/2016; Abdomen Pelvis Wo Contrast dated 04/20/2023; Abdomen Pelvis Wo Contrast dated 04/15/2022 TECHNIQUE: Thin cut axial CT imaging of the abdomen and pelvis was performed following intravenous a dministration of 100 mL Isovue 300. Multiplanar reformats were generated and reviewed. All CT scans are performed using dose optimization technique as appropriate and may include automated exposure control or mA/KV adjustment according to patient size. FINDINGS: No suspicious findings in the lung bases. The liver, spleen, and pancreas show no suspicious findings. Gallbladder is decompressed limiting jareth luation. Symmetric renal function is seen with no hydronephrosis or suspicious renal mass. 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 Fecalization in the most distal dilat ed bowel loops. The degree of distal small bowel dilation has improved since the prior exam of 2022. Few air-fluid levels remain. Mild bowel wall thickening in the right lower quadrant, with mild mucosal hyperenhancement. No inflammatory stranding, extraluminal gas, or fluid collections. Right lo wer quadrant prior ostomy site, with stable small hernia containing partial bulging of bowel wall. No hernia, mass or bulky lymphadenopathy. The urinary bladder is without significant finding. No suspicious bony findings. IMPRESSION: The degree of distal small bowel dilation has improved since the prior exam. Mild small bowel wall thickening in the right lower quadrant, more apparent than on the prior exam, a nd could relate to relative nondistention or segmental ileitis. No extraluminal gas, inflammatory fat stranding, or abnormal fluid collections.
--- NOTE | 2023-04-23 21:29 | EDPHYS ---
Physician Documentation [facility] Name: Rico Mcneill Age: 53 yrs Sex: Male : 1970 Arrival Date: 04/23/2023 Time: 17:20 Bed 16 Private MD: ED Physician Saad Alberto HPI: 04/23 18:27 This 53 yrs old Male presents to ER via EMS with complaints of Abdominal Pain. ms3 18:27 53-year-old male with past medical history of hypertension, ileostomy presents for ms3 lower abdominal pain. Patient states the pain is an 8/10 and cramping. Patient states he was discharged from the hospital today. Patient Dors is nausea. Patient denies vomiting or diarrhea.. Historical: - Allergies: 17:26 NKDA; db - PMHx: 17:26 Hypertensive disorder; ileostomy; db - PSHx: 17:26 ileostomy reversal ; October 2022; Small bowel resection with ileostomy; db - Immunization history:: Client reports receiving the 2nd dose of the Covid vaccine. - Social history:: Smoking status: Patient reports use of chewing tobacco. ROS: 18:27 Constitutional: Negative for fever, and chills. Neck: Negative for injury, pain, and ms3 swelling, Cardiovascular: Negative for chest pain, and palpitations. Respiratory: Negative for shortness of breath, cough, wheezing, and pleuritic chest pain. 18:27 MS/Extremity: Negative for injury and deformity, Skin: Negative for injury, rash, and discoloration. 18:27 Abdomen/GI: Positive for abdominal pain, nausea, Negative for vomiting, diarrhea. 18:27 All other systems are negative. Exam: 18:27 Constitutional: This is a well developed, well nourished patient who is awake, alert, ms3 and in no acute distress. Head/Face: Normocephalic, atraumatic. Chest/axilla: Normal chest wall appearance and motion. Nontender with no deformity. Cardiovascular: Regular rate and rhythm with a normal S1 and S2. No gallops, murmurs, or rubs. Normal PMI, no JVD. No pulse deficits. Respiratory: Lungs have equal breath sounds bilaterally, clear to auscultation and percussion. No rales, rhonchi or wheezes noted. No increased work of breathing, no retractions or nasal flaring. 18:27 Abdomen/GI: Inspection: abdomen appears normal, Bowel sounds: normal, Palpation: moderate abdominal tenderness, in the right lower quadrant and left lower quadrant. Vital Signs: 17:19 BP 107 / 64; Pulse 67; Resp 16; Temp 98.9(O); Pulse Ox 100% on R/A; Weight 65.77 kg; db Height 6 ft. 4 in. ; Pain 8/10; 17:30 BP 107 / 77; Pulse 66; Resp 16; Pulse Ox 100% on R/A; db 18:00 BP 100 / 61; Pulse 64; Resp 16; Pulse Ox 100% on R/A; db 19:00 BP 117 / 77; Pulse 68; Resp 16; Pulse Ox 100% on R/A; db 19:50 BP 137 / 88; Pulse 89; Resp 20 S; Pulse Ox 99% on R/A; ha1 20:50 BP 111 / 68; Pulse 65; Resp 18 S; Pulse Ox 99% on R/A; ha1 17:19 Body Mass Index 17.65 (65.77 kg, 193.04 cm) db 17:19 Pain Scale: Adult db MDM: 17:38 Patient medically screened. ms3 18:27 Differential diagnosis: bowel obstruction, non-specific abd pain, Acute kidney injury. ms3 21:29 Data reviewed: vital signs, nurses notes, lab test result(s), radiologic studies, and ms3 as a result, I will discharge patient. Management of patient was discussed with the following: Obstetrics Gynecology Md: Dr Burdick- No surgical intervention needed at this time and can be discharged. Historians other than the Patient: EMS: . Care significantly affected by the following chronic conditions: Hypertension, Inflammatory bowel disease. Counseling: I had a detailed discussion with the patient and/or guardian regarding the historical points, exam findings, and any diagnostic results supporting the discharge/admit diagnosis, lab results, radiology results, the need for outpatient follow up, to return to the emergency department if symptoms worsen or persist or if there are any questions or concerns that arise at home. Special discussion: Based on the patient's Hx, exam, and Dx evaluation, there is no indication for emergent surgery or inpatient Tx. It is understood by the patient/guardian that if the Sx's persist or worsen they need to return immediately for re-evaluation. ED course: Discussed labs and imaging with patient. Patient to follow-up with Dr. Burdick in 2 to 3 days. Patient stands and agrees with plan. Questions were answered. Return precautions discussed include worsening symptoms, or any other concerns. On reevaluation patient's symptoms improved, patient is alert and oriented x4, no apparent distress, nontoxic-appearing, speaking full sentences. 04/23 17:39 Order name: CBC with Diff; Complete Time: 19:40 ms3 04/23 17:39 Order name: BMP; Complete Time: 19:40 ms3 04/23 18:10 Order name: CT Abd/Pelvis - IV Contrast Only; Complete Time: 21:22 ms3 04/23 21:31 Order name: PO challenge; Complete Time: 21:40 ms3 Administered Medications: No medications were administered Disposition Summary: 04/23/23 21:28 Discharge Ordered Location: Home ms3 Condition: Stable ms3 Diagnosis - Lower abdominal pain, unspecified ms3 - Essential (primary) hypertension ms3 - Anemia, unspecified ms3 Followup: ms3 - With: - When: 2 - 3 days - Reason: Recheck today's complaints Discharge Instructions: - Discharge Summary Sheet ms3 - Abdominal Pain, Adult ms3 - Anemia ms3 - Hypertension, Adult ms3 Forms: - Medication Reconciliation Form ms3 - Thank You Letter ms3 - Antibiotic Education ms3 - Prescription Opioid Use ms3 - Patient Portal Instructions ms3 - Leadership Thank You Letter ms3 Signatures: Dispatcher [employer] EDMS Saad Alberto DO DO ms3 Ranjana Eng, RN RN db
--- NOTE | 2023-04-23 21:29 | ER ---
Nurse's Notes [facility] Name: Rico Mcneill Age: 53 yrs Sex: Male : 1970 Arrival Date: 04/23/2023 Time: 17:20 Bed 16 Private MD: Diagnosis: Lower abdominal pain, unspecified;Essential (primary) hypertension;Anemia, unspecified Presentation: 04/23 17:19 Chief complaint: EMS states: ABD PAIN WAS RECENTLY DISCHARGED FROM HOSPITAL TODAY. db Coronavirus screen: Vaccine status: Patient reports receiving the 2nd dose of the covid vaccine. Client denies travel out of the [place] in the last 14 days. At this time, the client does not indicate any symptoms associated with coronavirus-19. Ebola Screen: Patient negative for fever greater than or equal to 101.5 degrees Fahrenheit, and additional compatible Ebola Virus Disease symptoms Patient denies exposure to infectious person. Patient denies travel to an Ebola-affected area in the 21 days before illness onset. No symptoms or risks identified at this time. Initial Sepsis Screen: Does the patient meet any 2 criteria? No. Patient's initial sepsis screen is negative. Does the patient have a suspected source of infection? No. Patient's initial sepsis screen is negative. Risk Assessment: Do you want to hurt yourself or someone else? Patient reports no desire to harm self or others. Onset of symptoms was April 23, 2023. 17:19 Method Of Arrival: EMS: [facility] db 17:19 Acuity: OCTAVIO 3 db Triage Assessment: 17:26 General: Appears in no apparent distress. comfortable, Behavior is calm, cooperative. db Pain: Complains of pain in abdomen. Neuro: Level of Consciousness is awake, alert, obeys commands, Oriented to person, place, time, situation. GI: Abdomen is flat, non-distended, Reports lower abdominal pain. Historical: - Allergies: 17:26 NKDA; db - PMHx: 17:26 Hypertensive disorder; ileostomy; db - PSHx: 17:26 ileostomy reversal ; October 2022; Small bowel resection with ileostomy; db - Immunization history:: Client reports receiving the 2nd dose of the Covid vaccine. - Social history:: Smoking status: Patient reports use of chewing tobacco. Screenin:28 [facility] ED Fall Risk Assessment (Adult) History of falling in the last 3 months, db including since admission No falls in past 3 months (0 pts) Confusion or Disorientation No (0 pts) Intoxicated or Sedated No (0 pts) Impaired Gait No (0 pts) Mobility Assist Device Used No (0 pt) Altered Elimination No (0 pt) Score/Fall Risk Level 0 - 2 = Low Risk Oriented to surroundings, Maintained a safe environment. Abuse screen: Denies threats or abuse. Denies injuries from another. Nutritional screening: No deficits noted. Tuberculosis screening: No symptoms or risk factors identified. Assessment: 17:27 Reassessment: SEE TRIAGE FOR INITIAL ASSESSMENT. db 18:30 Reassessment: Patient appears in no apparent distress at this time. Patient and/or db family updated on plan of care and expected duration. Pain level reassessed. Patient is alert, oriented x 3, equal unlabored respirations, skin warm/dry/pink. General: Appears in no apparent distress. comfortable, Behavior is calm, cooperative. Pain: Complains of pain in abdomen. Neuro: Level of Consciousness is awake, alert, obeys commands, Oriented to person, place, time, situation. 19:50 General: Appears comfortable, Behavior is calm, cooperative. Pain: Complains of pain in ha1 abdomen Pain does not radiate. Pain currently is 8 out of 10 on a pain scale. Neuro: Level of Consciousness is awake, alert, obeys commands, Oriented to person, place, time, situation. Cardiovascular: Patient's skin is warm and dry. Respiratory: Airway is patent Respiratory effort is even, unlabored, Respiratory pattern is regular, symmetrical. GI: Abdomen is flat, non-distended, Bowel sounds present X 4 quads. Abd is soft Reports lower abdominal pain. Musculoskeletal: Circulation, motion, and sensation intact. Range of motion: intact in all extremities. 20:50 Reassessment: Patient and/or family updated on plan of care and expected duration. Pain ha1 level reassessed. Patient is alert, oriented x 3, equal unlabored respirations, skin warm/dry/pink. Vital Signs: 17:19 BP 107 / 64; Pulse 67; Resp 16; Temp 98.9(O); Pulse Ox 100% on R/A; Weight 65.77 kg; db Height 6 ft. 4 in. ; Pain 8/10; 17:30 BP 107 / 77; Pulse 66; Resp 16; Pulse Ox 100% on R/A; db 18:00 BP 100 / 61; Pulse 64; Resp 16; Pulse Ox 100% on R/A; db 19:00 BP 117 / 77; Pulse 68; Resp 16; Pulse Ox 100% on R/A; db 19:50 BP 137 / 88; Pulse 89; Resp 20 S; Pulse Ox 99% on R/A; ha1 20:50 BP 111 / 68; Pulse 65; Resp 18 S; Pulse Ox 99% on R/A; ha1 17:19 Body Mass Index 17.65 (65.77 kg, 193.04 cm) db 17:19 Pain Scale: Adult db ED Course: 17:24 Patient arrived in ED. db 17:25 Saad Alberto DO is Attending Physician. ms3 17:26 Triage completed. db 17:26 Arm band placed on Patient placed in an exam room. db 17:27 Maintain EMS IV. Dressing intact. Good blood return noted. Site clean \T\ dry. Gauge \T\ db site: 20 G RIGHT HAND. 18:31 Ranjana Eng, RN is Primary Nurse. db 19:30 Patient has correct armband on for positive identification. Bed in low position. Call db light in reach. Side rails up X 1. Pulse ox on. NIBP on. 20:18 CT Abd/Pelvis - IV Contrast Only In Process Unspecified. EDMS 21:28 Nathaniel Burdick MD is Referral Physician. ms3 21:41 Provided Education on: follow up. ha1 21:41 No provider procedures requiring assistance completed. IV discontinued, intact, ha1 bleeding controlled, No redness/swelling at site. Pressure dressing applied. Administered Medications: No medications were administered Medication: 21:41 VIS not applicable for this client. ha1 Outcome: 21:28 Discharge ordered by . ms3 21:41 Discharged to home ambulatory. ha1 21:41 Condition: stable 21:41 Discharge instructions given to patient, Instructed on discharge instructions, follow up and referral plans. Demonstrated understanding of instructions, follow-up care. 21:41 Patient left the ED. ha1 Signatures: Dispatcher [employer] EDMS Saad Alberto DO DO ms3 Josi Bernardo RN RN ha1 Ranjana Eng, RN RN db
[2023-04-23 23:14] VITALS: O2SAT 99
[2023-04-23 23:15] VITALS: BP 111/68
== END 2023-04-23 21:41 | disposition home or self-care (01) ==
LOC: ER 17:20
DX: R10.31 Right lower quadrant pain (principal); R10.32 Left lower quadrant pain; I10 Essential (primary) hypertension; D64.9 Anemia, unspecified
CPT/HCPCS: 36415; 74177; 80048; 85025; 99284; Q9967

== ENCOUNTER 2023-06-05 15:02 | Observation (INO) | payer SELFPAY ==
[2023-06-05] MEDS ORDERED: ONDANSETRON 4 MG/2 ML VIAL ONE (15:56)
[2023-06-05] MEDS ORDERED: NA CHLORIDE 0.9% 500 ML ONE (15:56)
--- OUTSIDE RECORDS SUMMARY | 2023-06-05 15:56 | XMS REPORT | Continuity of Care Document ---
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 [place] 00 :00 the [facility] morning Branch and 1 tablet at noon and 1 tablet in the evening. Take with meals. Do all this for 10 days. methocarbam 3-0 2023- No [id number] 500mg Take 1 Univers oL 500 mg 4-18 04-18 tablet by ity of tablet 00:00: 00:00 mouth 4 [place] 00 :00 ([facility] daily for 5 days. D5W 0.45% 2022-0 Yes 1000mL at 20 Unive rs NaCl [...] mL Infusion, Branch CONTINUOUS , Starting on [place] 12/07/22 at 1815, Until 12/08/22 at 0620, Routine acetaminoph 2023-0 Yes 1000mg 1,000 mg, Univers en 4-16 Oral, Q8H, ity of (TYLENOL) 19:00: First dose [place] tablet 00 on [place] [facility] 1,000 mg 12/07/22 at [facility] h 1400, Until Discontinu ed, Routine lactated 2023-0 2023- No 500mL at 999 Unive rs ringers IV 4-16 04-16 mL/hr, 500 it y of infusion 17:45: 19:04 mL, [place] 500 mL 00 :00 Intravenou Medical s, ONCE, 1 Branch dose, On [place] 12/07/22 at 1245, Routine lactated 2023-0 2023- No 500mL at 999 Unive rs ringers IV 4-16 04-16 mL/hr, 500 it y of infusion 15:21: 16:01 mL, [place] 500 mL 00 :00 Intravenou Medical s, ONCE, 1 Branch dose, On [place] 12/07/22 at 1030, Routine ibuprofen 3-0 Yes 400mg 400 mg, Univ ers (IBU) 4-16 Oral, TID ity of tablet 400 13:00: MEALS, [place] mg 00 First dose Medical on [place] Branch 12/07/22 at 0800, Until Discontinu ed, Routine methocarbam 2023-0 Yes 500mg 500 mg, Un piyush oL 4-16 Oral, QID, ity of (ROBAXIN) 13:00: First dose [place] tablet 500 00 on [place] Medical mg 12/07/22 at Branch 0800, Until Discontinu ed, Routine D5W 0.45% 2022-0 2023- No 1000mL at 50 Univ ers NaCl 4-16 04-16 mL/hr, ity of (1/2NS) IV 12:30: 23:10 1,000 mL, [place] infusion 00 :22 IV Medical 1,000 mL Infusion, Branch CONTINUOUS , Starting on Thu12/07/22 at 0730, Until Thu12/07/22 at 1810, Routine ketorolac 2022- No 15mg [...] No 15mg 15 mg, Unive rs (TORADOL) 12-0515 Slow IV ity of injection 05:00: 04:59 [...] No 500mg 500 mg, U nivers oL 12-0516 Intravenou ity of (ROBAXIN) 03:00: 12:26 s, [...] Vomiting Branch (N/V), Starting on [facility] 12/04/22 at 2028
Do ses of ondansetro n 16 mg and above need to be administer ed via IV piggyback. For Dose >=24mg ECG monitoring is advisable.
gabapentin 0 Yes 300mg 300 mg, Uni vers (NEURONTIN) 4-14 Oral, TID, it y of capsule 300 01:00: First dose [place] mg 00 on [facility] 12/04/22 at Branch 1999, Until Discontinu ed, Routine gabapentin 0 Yes 300mg 300 mg, Uni vers (NEURONTIN) 4-14 Oral, TID, it y of capsule 300 01:00: First dose [place] mg 00 on [facility] 12/04/22 at Branch 1999, Until Discontinu ed, Routine alvimopan 2022-0 2022- No 12mg 12 mg, Unive rs (ENTEREG) 12-05-16 Oral, BID, ity of capsule 12 01:00: 00:59 4 doses, [place] mg 00 :00 First dose Medical on [facility] 12/04/22 at 1999, Last dose on [facility] 12/06/22 at 0800, Routine
Restricte d use approved by: MAYELA BIA R. - SURGERY/GE NERAL alvimopan 2022- No 12mg 12 mg, Unive rs (ENTEREG) 12-05-15 Oral, BID, ity of capsule 12 01:00: 13:45 4 doses, [place] mg 00 :00 First dose Medical on [facility] 12/04/22 at 1999, Last dose on [facility] 12/06/22 at 0800, Routine
Restricte d use approved by: [facility] R. - SURGERY/GE NERAL D5W 0.45% Yes [...] Discontinu ed, Routine, Pain (scale 4-6) HYDROcodone 0 Yes 1{tbl} 1 tablet, Univers [...] (Faculty): GENERAL SURGERY
General surgeon approving: mayela sotoimopan 2022- No 12mg 12 mg, Unive rs (ENTEREG) 12-04 Oral, ity of capsule 12 13:00: 16:03 ONCE, 1 [place] mg 00 :00 dose, On Medical [place] [facility] 12/04/22 at 0800, Routine
Restricte d use approved by: BIA PEDRO. - SURGERY/GE NERAL magnesium No 4g 4 g, IV Univ [...] Thu12/02/22 at 0850, Routine sulfur 2022- No [id number] 5mL 5 mL, Unive rs hexafluorid 12-01 Intravenou i ty of e microsphr 15:00: 15:00 s, ONCE, 1 [place] (LUMASON) 00 :00 dose, On Medica l injection 5 Thu Branch mL 12/01/22 at 1000, Routine
crew team member approving Restricted medication : ISAÍAS HELM lactated 2022-0 2022- No 500mL at 999 Unive rs ringers IV 10 04-10 mL/hr, 500 it y of infusion 06:00: 07:00 mL, [place] 500 mL 00 :00 Intravenou Medical s, ONCE, 1 Branch dose, On Thu12/01/22 at 0100, Routine lactated 2023-0 202- No 500mL at 999 Unive rs ringers IV 10 04-10 mL/hr, 500 it y of infusion 02:15: 03:00 mL, [place] 500 mL 00 :00 Intravenou Medical s, ONCE, 1 Branch dose, On Thu11/30/22 at 2115, Routine diphenoxyla 2022-2022- No 1{tbl} 1 tablet, Univers te-atropine 11-3013 Oral, Q6H, i ty of (LOMOTIL) 17:00: 15:30 First dose [place] 2.5-0.025 00 :08 (after Medical mg tablet 1 last Branch tablet modificati on) on Thu11/30/22 at 1200, Until Discontinu ed, Routine lactated 2022-0 2022- No 500mL at 999 Unive rs ringers IV 11-30 04-10 mL/hr, 500 it y of infusion 14:00: 01:00 mL, [place] 500 mL 00 :00 Intravenou Medical s, ONCE, 1 Branch dose, On Thu11/30/22 at 0900, Routine magnesium 2022- No 4g 4 g, IV Univ ers sulfate in 11-30-09 Piggyback, it y of water 4 13:45: 18:09 at 25 [place] gram/50 mL 00 :00 mL/hr Medical (8 %) IV Administer Branc h Piggyback 4 over 120 g Minutes, ONCE, 1 dose, On Thu11/30/22 at 0845, Routine NaCl 0.9% 2022-0 2022- No 1000mL at 150 Uni vers (NS) IV 11-30 04-10 mL/hr, IV ity of infusion 13:15: 16:14 Infusion, [place] 1,000 mL 00 :31 CONTINUOUS Medic al , Starting Branch on Thu11/30/22 at 0815, Until Thu12/01/22 at 1114, Routine NaCl 0.9% 2022- No 500mL at 999 Univ ers (NS) bolus 11-30-10 mL/hr, 500 it y of infusion 04:45: [...] diphenoxyla 2022-0 2022- No 1{tbl} 1 tablet, [facility] te-atropine 11-29 Oral, Q8H, i ty of (LOMOTIL) 03:00: 13:19 First dose [place] 2.5-0.025 00 :36 on Fri Medical mg tablet 1 11/28/22 at [facility] tablet 2200, Until Discontinu ed, Routine loperamide 2022-0 2022- No 2mg 2 mg, Unive rs (IMODIUM 11-28 Oral, QID, ity of A-D) 21:00: 18:21 First dose [place] capsule 2 00 :50 (after Medical mg last Branch modificati on) on Thu11/28/22 at 1600, Until Discontinu ed, Routine cholestyram 2022-0 2022- No 1{packe 1 Packet, Univers ine 11-28 t} Oral, TID, ity of (QUESTRAN) 19:00: 15:30 First dose [place] 4 gram 00 :08 on Fri Medical packet 1 11/28/22 at Branch Packet 1400, Until Discontinu ed, Routine vitamin 3-0 Yes 2000ug 2,000 mcg, Un piyush B-12 11-28 Oral, ity of (CYANOCOBAL 14:00: DAILY, [place]) 00 First dose Medical tablet on Fri Branch 2,000 mcg 11/28/22 at 0900, Until Discontinu ed, Routine vitamin 3-0 Yes 2000ug 2,000 mcg, Un piyush B-12 11-28 Oral, ity of (CYANOCOBAL 14:00: DAILY, [place]) 00 First dose Medical tablet on Thu Branch 2,000 mcg 11/28/22 at 0900, Until Discontinu ed, Routine calcium 2022- No 1{tbl} 250 mg (1 Un piyush carbonate-v 11-28 tablet), ity of itamin D3 14:00: 15:30 Oral, [place] (OSCAL-250 00 :08 DAILY, Medical + D) 250 First dose Branc h mg-3.125 on Thu mcg (125 11/28/22 at unit) per 0900, tablet 250 Until mg Discontinu ed, Routine magnesium 2022- No 4g 4 g, IV Univ ers sulfate in 11-28 Piggyback, it y of water 4 11:00: 19:36 at 25 [place] gram/50 mL 00 :00 [...] :08 on [place] [facility] BICARBONATE 11/27/22 at [facility] )) tablet 1400, 650 mg Until Discontinu ed, Routine psyllium 2022- No 1{packe 1 Packet, [facility] 11-27 t} Oral, TID, ity of (METAMUCIL [...] at 1816, Routine, Pain (scale 1-3) insulin No .1U/kg 6.99 Units U nivers regular 11-27 (0.1 ity of human 15:00: 15:55 Units/kg [place] (HUMULIN R) 00 :00 ?69.9 kg), Me dical injection IV Push, [place] 6.99 Units ONCE, 1 dose, On [facility] 11/27/22 at 1000, JOÃO
In dication for insulin: Hyperkalem ia- Please use the Insulin Protocol for Hyperkalem ia order set dextrose 50 2022- No 50mL 50 mL, Uni vers % in water 11-27 Slow IV ity o f (D50W) 15:00: 15:51 Push, [place] injection 00 :00 ONCE, 1 Medical 50 mL dose, On Branch [facility] 11/27/22 at 1000, JOÃO NaCl 0.9% 2022- No 1000mL at 9,999 U nivers (NS) IV 11-27- mL/hr, IV ity of infusion 15:00: 16:40 Infusion, [place] 1,000 mL 00 :00 ONCE, 1 Medical dose, On Branch [place] 11/27/22 at 1000, JOÃO albuterol 2022-2022- No 2.5mg 2.5 mg, Uni vers (PROVENTIL) [...] mEq/L with our without EKG changes magnesium Yes 400mg 400 mg, Univ ers oxide 11-23 Oral, ity of (MAG-OX 14:00: DAILY, [place] 400) tablet 00 First dose Me dical 400 mg on [place] Branch 11/23/22 at 0900, Until Discontinu ed, Routine magnesium 2022- No 4g 4 g, IV Univ ers sulfate in 11-22 Piggyback, it y of water 4 12:15: 13:48 at 25 [place] gram/50 mL 00 :00 mL/hr Medical (8 %) IV Administer Branc h Piggyback 4 over 120 g Minutes, ONCE, 1 dose, On 11/22/22 at 0715, Routine lactated 2022-0 Yes 1000mL at 200 Unive rs ringers IV -01 mL/hr, ity of infusion 11:30: 1,000 mL, [place] 1,000 mL 00 IV Medical Infusion, Branch CONTINUOUS , Starting on 11/22/22 at 0630, Until Discontinu ed, Routine psyllium 2022-0 Yes [id number] 1{packe Take 1 Univers husk 3.4 4-01 t} Packet by ity of gram oral 00:00: mouth [place] powder 00 the Medical packet morning Branch and 1 Packet at noon and 1 Packet in the evening. psyllium 2022-0 Yes [id number] 1{packe Take 1 Univers husk 3.4 4-01 t} Packet by ity of gram oral 00:00: mouth [place] powder 00 the Medical packet morning Branch and 1 Packet at noon and 1 Packet in the evening. psyllium 2022-0 Yes [id number] 1{packe Take 1 Univers husk 3.4 4-01 t} Packet by ity of gram oral 00:00: mouth [place] powder 00 the Medical packet morning Branch and 1 Packet at noon and 1 Packet in the evening. psyllium 2022-0 Yes [id number] 1{packe Take 1 Univers husk 3.4 4-01 t} Packet by ity of gram oral 00:00: mouth [place] powder 00 the Medical packet morning Branch and 1 Packet at noon and 1 Packet in the evening. psyllium 2022-0 2023- No [id number] 1{packe Take 1 Univers husk 3.4 4-01 04-18 t} Packet by ity o f gram oral 00:00: 00:00 mouth in [place] powder 00 :00 the Medical packet morning Branch and 1 Packet at noon and 1 Packet in the evening. lactated 2022-0 202- No 1000mL at 125 Univ ers ringers IV 11-21 04-01 mL/hr, ity of infusion 23:00: 11:22 1,000 mL, [place] 1,000 mL 00 :09 IV Medical Infusion, Branch CONTINUOUS , Starting on Thu11/21/22 at 1800, Until 11/22/22 at 0622, Routine lactated 3-0 2022- No 1000mL at 250 Univ ers ringers IV 11-21-31 mL/hr, ity of infusion 17:45: 22:46 1,000 [...] Thu11/21/22 at 0300, Routine iopamidol 2022- No [id number] 500mL 500 mL, Univers (ISOVUE 11-20 Rectal, [...] ity of (CYANOCOBAL 14:00: DAILY, [place] 00 First dose Medical tablet on [place] [...] heparin 0 Yes 5000U 5,000 Univers (porcine) 3-30 Units, ity of injection 01:00: Subcut[place]o [place] 5,000 Units 00 us, Q12H, Med ical First dose Branch on Thu11/19/22 at 2000, Until Discontinu ed, Routine psyllium 2022-0 2023- No 1{packe 1 Packet, Univers husk 11-20 03-30 t} Oral, BID, ity of (METAMUCIL 01:00: 12:40 First dose [place] (SUGAR 00 :40 on Thu Medical FREE)) 3.4 11/19/22 at [facility] gram oral 1999, powder Until packet 1 [...] 1530, Until Thu11/19/22 at 1623, Routine loperamide 0 Yes 2mg 2 mg, Univer s (IMODIUM 11-19 Oral, TID, ity o f A-D) 19:00: First dose [place] capsule 2 00 on Thu Medical mg 11/19/22 at Branch 1400, Until Discontinu ed, Routine acetaminoph 2022-0 Yes 650mg 650 mg, Un piyush en 11-19 Oral, ity of (TYLENOL) 18:35: Q6HPRN, [place] tablet 650 12 Starting Medic al mg on Thu Branch 11/19/22 at 1335, Until Discontinu ed, Routine, Pain (scale 1-3) ondansetron 0 2022- No 4mg 4 mg, Slow [...] :00 ONCE, 1 Medical dose, On Branch [facility] 11/19/22 at 1100, Routine loperamide 2022-0 Yes 4mg [...] :00 dose, On Medi mariusz 400 mg [facility] 11/06/22 at 1100, Routine magnesium 2022-0 2022- No 2g 2 g, IV Univ ers sulfate in 11-06 Piggyback, it y of water 2 12:00: 15:04 Administer [place] gram/50 mL 00 :00 over 60 Medica l (4 %) Minutes, Branch infusion 2 ONCE, 1 g dose, On [place] 11/06/22 at 0700, Routine lactated 3-0 2022- No 500mL at 999 Unive rs ringers IV 11-06 mL/hr, 500 it y of infusion 01:30: 01:07 mL, [place] 500 mL 00 :25 Intravenou Medical s, ONCE, 1 Branch dose, On [facility] 11/05/22 at 2030, Routine sodium 2023-0 Yes [id number] 650mg Take 1 Univ ers bicarbonate 3-16 tablet by ity of 650 mg 00:00: mouth in [place] tablet 00 the Medical morning Branch and 1 tablet at noon and 1 tablet in the evening. sodium 2023-0 Yes [id number] 650mg Take 1 Univ ers bicarbonate 3-16 tablet by ity of 650 mg 00:00: mouth in [place] tablet 00 the Medical morning Branch and 1 tablet at noon and 1 tablet in the evening. sodium 2023-0 Yes [id number] 650mg Take 1 Univ ers bicarbonate 3-16 tablet by ity of 650 mg 00:00: mouth in [place] tablet 00 the Medical morning Branch and 1 tablet at noon and 1 tablet in the evening. sodium 2023-0 Yes [id number] 650mg Take 1 Univ ers bicarbonate 3-16 tablet by ity of 650 mg 00:00: mouth in [place] tablet 00 the Medical morning Branch and 1 tablet at noon and 1 tablet in the evening. sodium 2023-0 Yes [id number] 650mg Take 1 Univ ers bicarbonate 3-16 tablet by ity of 650 mg 00:00: mouth in [place] tablet 00 the Medical morning Branch and 1 tablet at noon and 1 tablet in the evening. sodium 2023-0 Yes [id number] 650mg Take 1 Univ ers bicarbonate 3-16 tablet by ity of 650 mg 00:00: mouth in [place] tablet 00 the Medical morning Branch and 1 tablet at noon and 1 tablet in the evening. sodium 2023-0 Yes [id number] 650mg Take 1 Univ ers bicarbonate 3-16 tablet by ity of 650 mg 00:00: mouth in [place] tablet 00 the Medical morning Branch and 1 tablet at noon and 1 tablet in the evening. sodium 2023-0 Yes [id number] 650mg Take 1 Univ ers bicarbonate 3-16 tablet by ity of 650 mg 00:00: mouth in [place] tablet 00 the Medical morning Branch and 1 tablet at noon and 1 tablet in the evening. sodium 2023-0 Yes [id number] 650mg Take 1 Univ ers bicarbonate 3-16 tablet by ity of 650 mg 00:00: mouth in [place] tablet 00 the Medical morning Branch and 1 tablet at noon and 1 tablet in the evening. sodium 2023-0 Yes [id number] 650mg Take 1 Univ ers bicarbonate 3-16 tablet by ity of 650 mg 00:00: mouth in [place] tablet 00 the Medical morning Branch and 1 tablet at noon and 1 tablet in the evening. sodium 2023-0 Yes [id number] 650mg Take 1 Univ ers bicarbonate 3-16 tablet by ity of 650 mg 00:00: mouth in [place] tablet 00 the Medical morning Branch and 1 tablet at noon and 1 tablet in the evening. sodium 2023-0 Yes [id number] 650mg Take 1 Univ ers bicarbonate 3-16 tablet by ity of 650 mg 00:00: mouth in [place] tablet 00 the Medical morning Branch and 1 tablet at noon and 1 tablet in the evening. sodium 2023-0 Yes [id number] 650mg Take 1 Univ ers bicarbonate 3-16 tablet by ity of 650 mg 00:00: mouth in [place] tablet 00 the Medical morning Branch and 1 tablet at noon and 1 tablet in the evening. sodium 2023-0 Yes [id number] 650mg Take 1 Univ ers bicarbonate 3-16 tablet by ity of 650 mg 00:00: mouth in [place] tablet 00 the Medical morning Branch and 1 tablet at noon and 1 tablet in the evening. sodium 2023-0 Yes [id number] 650mg Take 1 Univ ers bicarbonate 3-16 tablet by ity of 650 mg 00:00: mouth in [place] tablet 00 the Medical morning Branch and 1 tablet at noon and 1 tablet in the evening. sodium 2023-0 Yes [id number] 650mg Take 1 Univ ers bicarbonate 3-16 tablet by ity of 650 mg 00:00: mouth in [place] tablet 00 the Medical morning Branch and 1 tablet at noon and 1 tablet in the evening. sodium 2023-0 Yes [id number] 650mg Take 1 Univ ers bicarbonate 3-16 tablet by ity of 650 mg 00:00: mouth in [place] tablet 00 the Medical morning Branch and 1 tablet at noon and 1 tablet in the evening. sodium 2023-0 Yes [id number] 650mg Take 1 Univ ers bicarbonate 3-16 tablet by ity of 650 mg 00:00: mouth in [place] tablet 00 the Medical morning Branch and 1 tablet at noon and 1 tablet in the evening. sodium 2023-0 Yes [id number] 650mg Take 1 Univ ers bicarbonate 3-16 tablet by ity of 650 mg 00:00: mouth in [place] tablet 00 the Medical morning Branch and 1 tablet at noon and 1 tablet in the evening. sodium 2023-0 Yes [id number] 650mg Take 1 Univ ers bicarbonate 3-16 tablet by ity of 650 mg 00:00: mouth in [place] tablet 00 the Medical morning Branch and 1 tablet at noon and 1 tablet in the evening. loperamide 3-0 2022- No 2mg 2 mg, Unive rs (IMODIUM 3-15 -16 Oral, TID, ity of A-D) 19:00: 14:31 First dose [place] capsule 2 00 :21 (after Medical mg last Branch modificati on) on Thu11/05/22 at 1400, Until Discontinu ed, Routine COVID-19 Yes 1{each} 0.3 mL (1 U nivers vaccine,mRN 3-15 Each), ity of A PF 14:40: Intramuscu [place] (PFIZER) 30 56 lar, Medical mcg/0.3 mL ONCE-PRIOR [facility] injection TO 0.3 mL DISCHARGE, 1 dose, Starting on Thu11/05/22 at 0940, Until Discontinu ed, JOÃO, Give vaccine prior to discharge< br>Is this the patient's 1st dose or 2nd dose of COVID vaccine? First Dose cyanocobala 2022- No 1000ug 1,000 mcg, Univers min (DODEX) 11-0518 Intramuscu i ty of injection 14:00: 13:59 lar, [place] 1,000 mcg 00 :00 DAILY, 3 Medica l doses, Branch First dose on Thu11/05/22 at 0900, Last dose on Thu11/07/22 at 0900, Routine psyllium Yes 1{packe 1 Packet, U nivers husk -15 t} Oral, TID, ity of (METAMUCIL 13:00: First dose [place] (SUGAR 00 (after Medical FREE)) 3.4 last Branch gram oral modificati powder on) on Thu packet 1 11/05/22 at Packet 0800, Until Discontinu ed, Routine loperamide 2022- No 4mg 4 mg, Unive rs (IMODIUM 11-05 Oral, BID, ity of A-D) 13:00: 14:34 First dose [place] capsule 4 00 :16 (after Medical mg last Branch modificati on) on Thu11/05/22 at 0800, Until Discontinu ed, Routine midodrine 2022- No 10mg 10 mg, Unive rs (PROAMATINE 11-05 Oral, TID, i ty of ) tablet 10 13:00: 14:32 First dose [place] mg 00 :28 (after Medical last Branch modificati on) on Thu11/05/22 at 0800, Until Discontinu ed, Routine NaCl 0.9% 2022- No 1000mL at 200 Uni vers (NS) IV 3-15 03-15 mL/hr, IV ity of infusion 12:30: 18:24 Infusion, [place] 1,000 mL 00 :06 ONCE, 1 Medical dose, On Branch Thu11/05/22 at 0730, Routine NaCl 0.9% 2022-0 2022- No 500mL at 999 Univ ers (NS) bolus 3-15 03-15 mL/hr, 500 it y of infusion 05:45: 06:00 mL, IV [place] 500 mL 00 :00 Piggyback, Medical ONCE, 1 Branch dose, On Thu11/05/22 at 0045, STAT loperamide 2022-0 2022- No 2mg 2 mg, Unive rs (IMODIUM 11-05-15 Oral, BID, ity of A-D) 01:00: 11:55 First dose [place] capsule 2 00 :51 (after Medical mg last Branch modificati on) on Thu11/04/22 at 1999, Until Discontinu ed, Routine psyllium 2022-0 2022- No 1{packe 1 Packet, Univers husk 11-05-15 t} Oral, BID, ity of (METAMUCIL 01:00: 11:55 First dose [place] (SUGAR 00 :51 (after Medical FREE)) 3.4 last Branch gram oral modificati powder on) on Thu 1 11/04/22 at Packet 1999, Until Discontinu ed, Routine calcium 2022-0 Yes [id number] 250mg Take 1 Uni vers carbonate-v 3-15 tablet by ity of itamin D3 00:00: mouth in [place] [facility] 250 00 the Medical mg-3.125 morning. Branch mcg (125 unit) per tablet loperamide 2022-0 Yes [id number] 2mg Take 1 U nivers 2 mg 3-15 capsule by ity of capsule 00:00: mouth in [place] 00 the Medical morning Branch and 1 capsule at noon and 1 capsule in the evening. calcium 2023-0 Yes [id number] 250mg Take 1 Uni vers carbonate-v 3-15 tablet by ity of itamin D3 00:00: mouth in [facility] s 250 00 the Medical mg-3.125 morning. Branch mcg (125 unit) per tablet loperamide 3-0 Yes [id number] 2mg Take 1 U nivers 2 mg 3-15 capsule by ity of capsule 00:00: mouth in [place] [address] the [facility] Branch and 1 capsule at noon and 1 capsule in the evening. calcium 3-0 Yes [id number] 250mg Take 1 Uni vers carbonate-v 3-15 tablet by ity of itamin D3 00:00: mouth in [place] [address] the Medical mg-3.125 morning. Branch mcg (125 unit) per tablet loperamide 2022-0 Yes [id number] 2mg Take 1 U nivers 2 mg 3-15 capsule by ity of capsule 00:00: mouth in [address] and 1 capsule at noon and 1 capsule in the evening. calcium 2022-0 Yes [id number] 250mg Take 1 Uni vers carbonate-v 3-15 tablet by ity of itamin D3 00:00: mouth in [place] [address] the Medical mg-3.125 morning. Branch mcg (125 unit) per tablet loperamide 2022-0 Yes [id number] 2mg Take 1 U nivers 2 mg 3-15 capsule by ity of capsule 00:00: mouth in [address] and 1 capsule at noon and 1 capsule in the evening. calcium 2022-0 Yes [id number] 250mg Take 1 Uni vers carbonate-v 3-15 tablet by ity of itamin D3 00:00: mouth in [place] [address] the Medical mg-3.125 morning. Branch mcg (125 unit) per tablet loperamide 2022-0 Yes [id number] 2mg Take 1 U nivers 2 mg 3-15 capsule by ity of capsule 00:00: mouth in [address] and 1 capsule at noon and 1 capsule in the evening. calcium 2022-0 Yes [id number] 250mg Take 1 Uni vers carbonate-v 3-15 tablet by ity of itamin D3 00:00: mouth in [place] [address] the Medical mg-3.125 morning. Branch mcg (125 unit) per tablet loperamide 2022-0 Yes [id number] 2mg Take 1 U nivers 2 mg 3-15 capsule by ity of capsule 00:00: mouth in [address] and 1 capsule at noon and 1 capsule in the evening. calcium 3-0 Yes [id number] 250mg Take 1 Uni vers carbonate-v 3-15 tablet by ity of itamin D3 00:00: mouth in [place] [address] 00 the Medical mg-3.125 morning. Branch mcg (125 unit) per tablet loperamide 2022-0 Yes [id number] 2mg Take 1 U nivers 2 mg 3-15 capsule by ity of capsule 00:00: mouth in [place] [address] the Medical morning Branch and 1 capsule at noon and 1 capsule in the evening. calcium 2022-0 Yes [id number] 250mg Take 1 Uni vers carbonate-v 3-15 tablet by ity of itamin D3 00:00: mouth in [place] [address] the Medical mg-3.125 morning. Branch mcg (125 unit) per tablet calcium 2022-0 Yes [id number] 250mg Take 1 Uni vers carbonate-v 3-15 tablet by ity of itamin D3 00:00: mouth in [place] [address] the Medical mg-3.125 morning. Branch mcg (125 unit) per tablet calcium 2022-0 Yes [id number] 250mg Take 1 Uni vers carbonate-v 3-15 tablet by ity of itamin D3 00:00: mouth in [place] [address] the Medical mg-3.125 morning. Branch mcg (125 unit) per tablet calcium 2022-0 Yes [id number] 250mg Take 1 Uni vers carbonate-v 3-15 tablet by ity of itamin D3 00:00: mouth in [place] [address] the Medical mg-3.125 morning. Branch mcg (125 unit) per tablet calcium 2022-0 Yes [id number] 250mg Take 1 Uni vers carbonate-v 3-15 tablet by ity of itamin D3 00:00: mouth in [place] [address] the Medical mg-3.125 morning. Branch mcg (125 unit) per tablet calcium 2022-0 Yes [id number] 250mg Take 1 Uni vers carbonate-v 3-15 tablet by ity of itamin D3 00:00: mouth in [place] [address] the Medical mg-3.125 morning. Branch mcg (125 unit) per tablet calcium 2022-0 Yes [id number] 250mg Take 1 Uni vers carbonate-v 3-15 tablet by ity of itamin D3 00:00: mouth in [place] [address] 00 the Medical mg-3.125 morning. Branch mcg (125 unit) per tablet calcium 0 Yes [id number] 250mg Take 1 Uni vers carbonate-v 3-15 tablet by ity of itamin D3 00:00: [facility] the Medical mg-3.125 morning. Branch mcg (125 unit) per tablet calcium 0 Yes [id number] 250mg Take 1 Uni vers carbonate-v 3-15 tablet by ity of itamin D3 00:00: [facility] the Medical mg-3.125 morning. Branch mcg (125 unit) per tablet calcium 0 Yes [id number] 250mg Take 1 Uni vers carbonate-v 3-15 tablet by ity of itamin D3 00:00: mouth in [facility] 00 the Medical mg-3.125 morning. Branch mcg (125 unit) per tablet calcium Yes [id number] 250mg Take 1 Uni vers carbonate-v 3-15 tablet by ity of itamin D3 00:00: mouth in [place] [facility] 250 00 the Medical mg-3.125 morning. Branch mcg (125 unit) per tablet calcium Yes [id number] 250mg Take 1 Uni vers carbonate-v 3-15 tablet by ity of itamin D3 00:00: mouth in [place] [facility] 250 00 the Medical mg-3.125 morning. Branch mcg (125 unit) per tablet calcium Yes [id number] 250mg Take 1 Uni vers carbonate-v 3-15 tablet by ity of itamin D3 00:00: mouth in [place] [facility] 250 00 the Medical mg-3.125 morning. Branch mcg (125 unit) per tablet loperamide 2022- No [id number] 2mg Take 1 [facility] 2 mg 3-15 -18 capsule by ity of capsule 00:00: 00:00 mouth in [place] 00 :00 the Medical morning Branch and 1 capsule at noon and 1 capsule in the evening. midodrine 2022- No [id number] 10mg Take 1 U nivers 10 mg 3-15 03-15 tablet by ity of tablet 00:00: 00:00 mouth in [place] 00 :00 the Medical morning Branch and 1 tablet at noon and 1 tablet in the evening. loperamide 2022- No [id number] 4mg Take 2 [facility] 2 mg 3-15 -15 capsules ity of capsule 00:00: 00:00 by mouth [place] 00 :00 in the Medical morning Branch and 2 capsules in the evening. psyllium 2022- No [id number] 1{packe Take 1 [facility] husk 3.4 15 11-04 t} Packet by ity o f gram oral 00:00: 00:00 mouth in [place] powder 00 :00 the Medical packet morning. [place] loperamide 2022- No [id number] 2mg Take 1 [facility] 2 mg 11-05 capsule by ity of capsule 00:00: 00:00 mouth [place] 00 :00 every Medical morning. [place] cyanocobala 2022- No [id number] 1000ug Take 1 mL Univers min 1,000 11-05 by ity of mcg/mL 00:00: 00:00 [place] injection 00 :00 lar route Medic al in the Branch morning. NaCl 0.9% 2022- No 1000mL at 200 Uni vers (NS) IV 11-04-14 mL/hr, IV ity of infusion 22:30: 22:11 Infusion, [place] 1,000 mL 00 :00 ONCE, 1 Medical dose, On [place] Thu11/04/22 at 1730, Routine sodium Yes 650mg 650 mg, Univers bicarbonate 3-14 Oral, TID, it y of (ANTACID 21:45: First dose [place] (SODIUM 00 on Thu Medical BICARBONATE 11/04/22 at Br anch )) tablet 1645, 650 mg Until Discontinu ed, Routine loperamide Yes 2mg 2 mg, Univer s (IMODIUM 3-14 Oral, ity of A-D) 16:48: Q4HPRN, [place] capsule 2 01 Starting Medica l mg on Thu11/04/22 at 1148, Until Discontinu ed, Routine, Diarrhea NaCl 0.9% 2022- No 1000mL at 200 Uni vers (NS) IV 3-14 03-14 mL/hr, IV ity of infusion 16:45: 19:36 Infusion, [place] 1,000 mL 00 :00 ONCE, 1 Medical dose, On [place] 3/14/23 at 1145, Routine vitamin 3-0 2022- No 1000ug 1,000 mcg, U nivers B-12 11-04 Oral, ity of (CYANOCOBAL 14:00: 16:02 DAILY, [place]UR[place]) 00 :56 First dose Medical tablet on Thu 1,000 mcg 11/04/22 at 0900, Until Discontinu ed, Routine midodrine 2022-2022- No 5mg 5 mg, Univer s (PROAMATINE 11-04 Oral, TID, i ty of ) tablet 5 13:00: 11:20 First dose [place] mg 00 :10 on Thu Medical 11/04/22 at Branch 0800, Until Discontinu ed, Routine magnesium 2022-2022- No 4g 4 g, IV Univ ers sulfate in 11-04 Piggyback, it y of water 4 13:00: 15:17 at 25 [place] gram/50 mL 00 :00 mL/hr Medical (8 %) IV Administer Branc h Piggyback 4 over 120 g Minutes, ONCE, 1 dose, On Thu11/04/22 at 0800, Routine sodium 2022-2022- No IV Univers bicarbonate 11-04 Infusion, it y of 75 mEq in 12:30: 15:59 CONTINUOUS [place] NaCl 0.45% 00 :06 , Starting Med ical (1/2NS) on Thu 1,000 mL IV 11/04/22 at Solution 0730, Until Thu11/04/22 at 1059, 1,000 mL, at 200 mL/hr vitamin 2023-0 Yes [id number] 2000ug Take 2 Un piyush B-12 1,000 3-14 tablets by ity of mcg tablet 00:00: mouth in [place] 00 the Medical morning. [place] vitamin 2023-0 Yes [id number] 2000ug Take 2 Un [place] B-12 1,000 3-14 tablets by ity of mcg tablet 00:00: mouth in [place] 00 the Medical morning. [place] vitamin 2023-0 Yes [id number] 2000ug Take 2 Un [place] B-12 1,000 3-14 tablets by ity of mcg tablet 00:00: mouth in [place] 00 the Medical morning. [place] vitamin 2023-0 Yes [id number] 2000ug Take 2 Un [place] B-12 1,000 3-14 tablets by ity of mcg tablet 00:00: mouth in [place] 00 the Medical morning. Branch vitamin 2023-0 Yes [id number] 1999ug Take 2 Un [place] B-12 1,000 3-14 tablets by ity of mcg tablet 00:00: mouth in [place] 00 the Medical morning. Branch vitamin 2023-0 Yes [id number] 1999ug Take 2 Un [place] B-12 1,000 3-14 tablets by ity of mcg tablet 00:00: mouth in [place] 00 the Medical morning. Branch vitamin 2023-0 Yes [id number] 1999ug Take 2 Un [place] B-12 1,000 3-14 tablets by ity of mcg tablet 00:00: mouth in [place] 00 the Medical morning. Branch vitamin 2023-0 Yes [id number] 1999ug Take 2 Un [place] B-12 1,000 3-14 tablets by ity of mcg tablet 00:00: mouth in [place] 00 the Medical morning. Branch vitamin 2023-0 Yes [id number] 1999ug Take 2 Un [place] B-12 1,000 3-14 tablets by ity of mcg tablet 00:00: mouth in [place] 00 the Medical morning. Branch vitamin 2023-0 Yes [id number] 1999ug Take 2 Un [place] B-12 1,000 3-14 tablets by ity of mcg tablet 00:00: mouth in [place] 00 the Medical morning. Branch vitamin 2023-0 Yes [id number] 1999ug Take 2 Un [place] B-12 1,000 3-14 tablets by ity of mcg tablet 00:00: mouth in [place] 00 the Medical morning. Branch vitamin 2023-0 Yes [id number] 1999ug Take 2 Un [place] B-12 1,000 3-14 tablets by ity of mcg tablet 00:00: mouth in [place] 00 the Medical morning. Branch vitamin 2023-0 Yes [id number] 1999ug Take 2 Un [place] B-12 1,000 3-14 tablets by ity of mcg tablet 00:00: mouth in [place] 00 the Medical morning. Branch vitamin 2023-0 Yes [id number] 1999ug Take 2 Un [place] B-12 1,000 3-14 tablets by ity of mcg tablet 00:00: mouth in [place] 00 the Medical morning. Branch vitamin 2023-0 Yes [id number] 2000ug Take 2 Un [place] B-12 1,000 3-14 tablets by ity of mcg tablet 00:00: mouth in [place] 00 the Medical morning. Branch vitamin 2023-0 Yes [id number] 1999ug Take 2 Un [place] B-12 1,000 3-14 tablets by ity of mcg tablet 00:00: mouth in [place] 00 the Medical morning. Branch vitamin 2023-0 Yes [id number] 1999ug Take 2 Un [place] B-12 1,000 3-14 tablets by ity of mcg tablet 00:00: mouth in [place] 00 the Medical morning. Branch vitamin 2023-0 Yes [id number] 1999ug Take 2 Un [place] B-12 1,000 3-14 tablets by ity of mcg tablet 00:00: mouth in [place] 00 the Medical morning. Branch vitamin 3-0 Yes [id number] 1999ug Take 2 Un [place] B-12 1,000 3-14 tablets by ity of mcg tablet 00:00: mouth in [place] 00 the Medical morning. Branch vitamin 3-0 Yes [id number] 1999ug Take 2 Un [place] B-12 1,000 3-14 tablets by ity of mcg tablet 00:00: mouth in [place] 00 the Medical morning. Branch midodrine 5 2022-0 2022- No [id number] 5mg Take 1 [facility] mg tablet 3-14 03-15 tablet by ity of 00:00: 00:00 mouth in [place] 00 :00 the Medical morning Branch and 1 tablet at noon and 1 tablet in the evening. loperamide 2022-0 2022- No [id number] 2mg Take 1 [facility] 2 mg 3-14 03-15 capsule by ity of capsule 00:00: 00:00 mouth in [place] 00 :00 the Medical morning Branch and 1 capsule in the evening. psyllium 2022-0 2022- No [id number] 1{packe Take 1 [facility] husk 3.4 3-14 [...] :00 ONCE, 1 Medical dose, On Branch [facility] 11/03/22 at 1030, Routine calcium 0 Yes 1{tbl} 250 mg (1 Uni vers carbonate-v 11-03 tablet), ity of itamin D3 14:00: Oral, [place] (OSCAL-250 00 DAILY, Medical + D) 250 First dose Branc h mg-3.125 on Thu mcg (125 11/03/22 at unit) per 0900, tablet 250 Until mg Discontinu ed, Routine KCL Yes 20meq 20 mEq, Univers (KLOR-CON 11-03 Oral, ity of M20) tablet 14:00: DAILY, [place] 20 mEq 00 First dose Medical on [facility] Branch 11/03/22 at 0900, Until Discontinu ed, Routine psyllium 2022- No 1{packe 1 Packet, Univers husk 11-03 t} Oral, ity of (METAMUCIL 14:00: 19:07 DAILY, [place] (SUGAR 00 :06 First dose Medical FREE)) 3.4 on [facility] gram oral 11/03/22 at powder 0900, packet [...] :07 , Starting Med ical (1/2NS) on [place] Branch 1,000 mL IV 11/02/22 at Solution 1830, Until Thu11/03/22 at 0938, 1,000 mL, at 150 mL/hr enoxaparin Yes 30mg 30 mg, Unive rs (LOVENOX) 11-02 Subcutaneo ity of injection 22:00: us, DAILY, [place] 30 mg 00 First dose Medical (after Branch last modificati on) on [place] 11/02/22 at 1700, Until Discontinu ed, Routine lactated 2022- No 1000mL at 999 [facility] ers ringers IV 11-02-12 mL/hr, ity of infusion 19:00: 22:36 1,000 mL, [place] 1,000 mL 00 :15 IV Medical Infusion, Branch CONTINUOUS , Starting on [place] 11/02/22 at 1400, Until [place] 11/02/22 at 1736, Routine ondansetron Yes 4mg 4 mg, Slow Univers (ZOFRAN 11-02 IV Push, ity of (PF)) 17:04: [place], [place] injection 4 54 Starting Medi mariusz mg on [facility] 11/02/22 at 1204, Until Discontinu ed, Routine, Nausea and Vomiting (N/V) acetaminoph Yes 650mg 650 mg, Un piyush en 11-02 Oral, ity of (TYLENOL) 17:04: [place], [place] tablet 650 40 Starting Medic al mg on [facility] 11/02/22 at 1204, Until Discontinu ed, Routine, Pain (scale 1-3) lactated 0 2022- No 1000mL at 999 [facility] ers ringers IV 11-02-12 mL/hr, ity of infusion 14:45: 17:07 1,000 mL, [place] 1,000 mL 00 :00 Intravenou Medic al s, ONCE, 1 Branch dose, On [place] 11/02/22 at 0945, Routine NaCl 0.9% 2022- No 1000mL at 999 Uni vers (NS) bolus 312 03-12 mL/hr, ity of infusion 13:45: 14:35 1,000 mL, [place] 1,000 mL 00 :00 IV Medical Infusion, Branch ONCE, 1 dose, On [place] 11/02/22 at 0845, JOÃO iopamidol 0 2022- No [id number] 80mL 80 mL, Univers (ISOVUE 10-20 Intravenou [...] Medical Infusion, Branch ONCE, 1 dose, On [place] 10/19/22 at 2030, [place] ondansetron 2022- No 4mg 4 mg, Slow Univers (ZOFRAN 10-20 IV Push, ity of (PF)) 01:45: 01:51 ONCE, 1 [place] injection 4 00 :00 dose, On Medi mariusz mg [place] Branch 10/19/22 at 1945, JOÃO morpHINE (4 2022- No 4mg 4 mg, Slow Univers mg/mL) 10-20 IV Push, ity of injection 4 01:45: 01:51 ONCE, 1 [place] mg 00 :00 dose, On Medical [facility] 10/19/22 at 1945, STAT ciprofloxac 2022-0 Yes [id number] 500mg Take 1 Univers in HCl 500 2-26 tablet by ity of mg tablet 00:00: mouth in [place] 00 the Medical morning Branch and 1 tablet in the evening. loperamide 2022-0 Yes [id number] 2mg Take 1 U nivers 2 mg 2-26 capsule by ity of capsule 00:00: mouth 2 00 (two) Medical times Branch daily as needed for Diarrhea. ciprofloxac 2022-0 Yes [id number] 500mg Take 1 Univers in HCl 500 2-26 tablet by ity of mg tablet 00:00: mouth in [place] 00 the Medical morning Branch and 1 tablet in the evening. loperamide 3-0 Yes [id number] 2mg Take 1 U nivers 2 mg 2-26 capsule by ity of capsule 00:00: mouth 2 00 (two) Medical times Branch daily as needed for Diarrhea. ciprofloxac 3-0 Yes [id number] 500mg Take 1 Univers in HCl 500 2-26 tablet by ity of mg tablet 00:00: mouth [place] 00 the Medical morning Branch and 1 tablet in the evening. loperamide 3-0 Yes [id number] 2mg Take 1 U nivers 2 mg 2-26 capsule by ity of capsule 00:00: mouth 2 (two) Medical times Branch daily as needed for Diarrhea. ciprofloxac 3-0 Yes [id number] 500mg Take 1 Univers in HCl 500 2-26 tablet by ity of mg tablet 00:00: mouth in s 00 the Medical morning Branch and 1 tablet in the evening. loperamide 2022-0 Yes [id number] 2mg Take 1 U nivers 2 mg 2-26 capsule by ity of capsule 00:00: mouth (two) Medical times Branch daily as needed for Diarrhea. ciprofloxac 3-0 3- No [id number] 500mg Take 1 Univers in HCl 500 2-26 03-12 tablet by ity of mg tablet 00:00: 00:00 mouth in [place] 00 :00 the Medical morning Branch and 1 tablet in the evening. loperamide 3-0 2023- No [id number] 2mg Take 1 Univers 2 mg 2-26 03-12 capsule by ity of capsule 00:00: 00:00 mouth 2 [place] 00 :00 (two) Medical times Branch daily as needed for Diarrhea. loperamide 3-0 2023- No [id number] 2mg Take 1 Univers 2 mg 2-26 02-26 capsule by ity of capsule 00:00: 00:00 mouth 2 [place] 00 :00 (two) Medical times Branch daily as needed for Diarrhea. ciprofloxac 3-0 3- No [id number] 500mg Take 1 Univers in HCl 500 2-26 02-26 tablet by ity of mg tablet 00:00: 00:00 mouth in [place] 00 :00 the Medical morning Branch and 1 tablet in the evening. Do all this for 7 days. ciprofloxac 2022- No [id number] 500mg Take 1 Univers in HCl 500 10-19 tablet by ity of mg tablet 00:00: 00:00 mouth in [place] 00 :00 the Medical morning Branch and 1 tablet in the evening. loperamide 2022- No [id number] 2mg Take 1 Univers 2 mg 10-19 [...] at 2000, Until Discontinu ed, Routine KCL No 40meq 40 mEq, Univers (KLOR-CON 05-21 Oral, ity of M20) tablet 15:30: 15:13 ONCE, 1 [place] 40 mEq 00 :00 dose, On Medical Wed Branch 05/21/22 at 1030, Routine magnesium 2021- No 1g 1 g, IV Univ ers sulfate in 05-21 Piggyback, it y of D5W 1 15:30: 16:17 ONCE, 1 [place] gram/100 mL 00 :00 dose, On [facility] mariusz RTU IV Thu Branch Piggyback 1 [...] on Thu Medical FREE)) 3.4 05/20/22 at [facility] gram oral 1999, powder Until packet 1 Discontinu Packet ed, Routine loperamide 2021- No 2mg 2 mg, Unive rs (IMODIUM 05-21 Oral, BID, ity of A-D) 01:00: 19:34 First dose [place] capsule 2 00 :32 on Thu Medical mg 05/20/22 at Branch 1999, Until Discontinu ed, Routine ferrous 0 Yes [id number] 325mg Take 1 Un piyush sulfate 325 9-28 tablet by ity of mg (65 mg 00:00: mouth in [facility] 00 the Medical tablet morning Branch and 1 tablet at noon and 1 tablet in the evening. Take with meals. loperamide Yes [id number] 2mg Take 1 U nivers 2 mg 9-28 capsule by ity of capsule 00:00: mouth 2 [place] [address] ([facility]) Medical times [place] daily as needed for Diarrhea (Increase ostomy output). ferrous Yes [id number] 325mg Take 1 Un piyush sulfate 325 9-28 tablet by ity of mg (65 mg 00:00: mouth in [place] iron) 00 the Medical tablet morning Branch and 1 tablet at noon and 1 tablet in the evening. Take with meals. loperamide Yes [id number] 2mg Take 1 U nivers 2 mg 9-28 capsule by ity of capsule 00:00: mouth 2 [place] 00 (two) Medical times [place] daily as needed for Diarrhea (Increase ostomy output). ferrous Yes [id number] 325mg Take 1 Un piyush sulfate 325 9-28 tablet by ity of mg (65 mg 00:00: mouth in [place] iron) 00 the Medical tablet morning Branch and 1 tablet at noon and 1 tablet in the evening. Take with meals. loperamide Yes [id number] 2mg Take 1 U nivers 2 mg 9-28 capsule by ity of capsule 00:00: mouth 2 00 (two) Medical times Branch daily as needed for Diarrhea (Increase ostomy output). ferrous Yes [id number] 325mg Take 1 Un [place] sulfate 325 9-28 tablet by ity of mg (65 mg 00:00: mouth in [place] iron) 00 the Medical tablet morning Branch and 1 tablet at noon and 1 tablet in the evening. Take with meals. loperamide Yes [id number] 2mg Take 1 U nivers 2 mg 9-28 capsule by ity of capsule 00:00: mouth 2 (two) Medical times Branch daily as needed for Diarrhea (Increase ostomy output). ferrous Yes [id number] 325mg Take 1 Un [place] sulfate 325 9-28 tablet by ity of mg (65 mg 00:00: mouth in [place] iron) 00 the Medical tablet morning Branch and 1 tablet at noon and 1 tablet in the evening. Take with meals. loperamide Yes [id number] 2mg Take 1 U nivers 2 mg 9-28 capsule by ity of capsule 00:00: mouth 2 00 (two) Medical times Branch daily as needed for Diarrhea (Increase ostomy output). ferrous Yes [id number] 325mg Take 1 Un [place] sulfate 325 9-28 tablet by ity of mg (65 mg 00:00: mouth in [place] iron) 00 the Medical tablet morning Branch and 1 tablet at noon and 1 tablet in the evening. Take with meals. loperamide Yes [id number] 2mg Take 1 U nivers 2 mg 9-28 capsule by ity of capsule 00:00: mouth 2 [place] 00 (two) Medical times Branch daily as needed for Diarrhea (Increase ostomy output). ferrous 3- No [id number] 325mg Take 1 U nivers sulfate 325 9-28 03-12 tablet by it y of mg (65 mg 00:00: 00:00 mouth in [place] iron) 00 :00 the Medical tablet morning Branch and 1 tablet at noon and 1 tablet in the evening. Take with meals. loperamide 2022- No [id number] 2mg Take 1 Univers 2 mg 05-2112 capsule by ity of capsule 00:00: 00:00 mouth 2 [place] 00 :00 (two) Medical times [place] daily as needed for Diarrhea (Increase ostomy output). sodium 2021- No [id number] 650mg Take 1 Uni vers bicarbonate 05-21 tablet by it y of 650 mg 00:00: 04:59 mouth in [place] tablet 00 :00 the Medical morning Branch and 1 tablet at noon and 1 tablet in the evening. Do all this for 7 days. KCL 20 mEq 2021- No [id number] 20meq Take 1 Univers tablet 05-21 tablet by ity of 00:00: 04:59 mouth in [place] 00 :00 the Medical morning [place] for 7 days. sodium 2021- No [id number] 650mg Take 1 Uni vers bicarbonate 05-21 tablet by it y of 650 mg 00:00: 04:59 mouth in [place] tablet 00 :00 the Medical morning Branch and 1 tablet at noon and 1 tablet in the evening. Do all this for 7 days. KCL 20 mEq 2021- No [id number] 20meq Take 1 Univers tablet 05-21 tablet by ity of 00:00: 04:59 mouth in [place] 00 :00 the [facility] morning [place] for 7 days. KCL 2021- No 40meq 40 mEq, Univers (KLOR-CON 05-20 Oral, ity of M20) tablet 21:00: 21:19 ONCE, 1 [place] 40 mEq 00 :00 dose, On Medical [facility] 05/20/22 at 1600, Routine ferrous Yes 325mg 325 mg, Univer s sulfate 05-20 Oral, TID ity of tablet 325 17:00: MEALS, [place] mg 00 First dose Medical on [facility] 05/20/22 at 1200, Until Discontinu ed, Routine enoxaparin Yes 30mg 30 mg, Unive rs (LOVENOX) 05-20 Subcutaneo ity of injection 14:00: us, DAILY, [place] 30 mg 00 First dose Medical on Thu Branch 05/20/22 at 0900, Until Discontinu ed, [...] 00 :00 dose, On Medical Thu Branch 05/20/22 at 0900, Routine sodium Yes [...] IV Push, ity of (PF)) 07:18: Q6HPRN, [place] injection 4 55 Starting Medi mariusz mg on Thu Branch 05/20/22 at 0218, Until Discontinu ed, Routine, Nausea and Vomiting (N/V) iopamidol 2021- No [id number] 65mL 65 mL, Univers (ISOVUE 05-20 Intravenou ity o f 370-500 mL) 04:15: 04:15 s, ONCE, 1 [place] injection 00 :00 dose, On Medica l 65 mL [facility] Branch 05/19/22 at 2315, Routine NaCl 0.9% 2021- No 1000mL at 999 Uni vers (NS) IV 05-20 mL/hr, ity of infusion 02:30: 07:11 Intravenou [place] 1,000 mL 00 :42 s, Medical CONTINUOUS Branch , Starting on Thu05/19/22 at 2130, Until Thu05/20/22 at 0211, Routine No known No No known [facility] rs medications 05-20 medication it y of 01:04: s [place] [address] Medical Branch dicyclomine 2021- No 20mg 20 mg, [...] -18 medication it y of 00:06: s [address] No known 2021-0 No No known Unive rs medications -18 medication it y of 00:06: s [address] magnesium 2021-0 2021- No 4g 4 [...] 1 last Branch tablet modificati on) on [place] 04/06/22 at 1200, Until Discontinu ed, Routine lactated 2021-0 2021- No 1000mL at 100 Univ ers ringers IV 04-06 08-15 mL/hr, ity of infusion 15:00: 20:30 1,000 mL, [place] 1,000 mL 00 :32 IV Medical Infusion, Branch CONTINUOUS , Starting on [place] 04/06/22 at 1000, Until Thu04/07/22 at 1530, Routine magnesium 2021-0 202- No 6g 6 g, IV Univ ers sulfate 6 g 04-06 Piggyback, i ty of in NaCl 15:00: 18:10 ONCE, 1 [place] 0.9% (NS) 00 :00 dose, On Medica l [facility] 04/06/22 at 1000, Administer over 90 Minutes, 50 mL loperamide 2022-0 Yes 4mg 4 mg, Univer s (IMODIUM 04-06 Oral, BID, ity o f A-D) 14:00: First dose [place] capsule 4 00 on [place] Medical mg 04/06/22 at Branch 0900, Until Discontinu ed, Routine loperamide 2021- No 4mg 4 mg, Unive rs (IMODIUM 04-06 Oral, ity of A-D) 12:30: 14:00 TIDPRN, 8 [place] capsule 4 00 :56 doses, Medical mg Starting Branch on [place] 04/06/22 at 0730, Until [place] 04/06/22 at 0900, Routine, Diarrhea NaCl 0.9% 2021- No 1000mL at 999 Uni vers (NS) bolus 04-06 mL/hr, ity of infusion 12:30: 11:38 1,000 mL, [place] 1,000 mL 00 :51 IV Medical Piggyback, Branch ONCE, 1 dose, On [place] 04/06/22 at 0730, STAT magnesium 2021- No 2g 2 g, IV Univ ers sulfate in 04-06 Piggyback, it y of water 2 11:30: 11:37 Administer [place] gram/50 mL 00 :00 over 60 Medica l (4 %) Minutes, Branch infusion 2 ONCE, 1 g dose, On [place] 04/06/22 at 0630, Routine midodrine 2021- No 10mg 10 mg, Unive rs (PROAMATINE 04-06 Oral, ity of ) tablet 10 05:45: 05:16 ONCE, 1 [place] mg 00 :00 dose, On [facility] 04/06/22 at 0045, Routine NaCl 0.9% 0 2021- No 1000mL at 999 Uni vers (NS) bolus 04-06- mL/hr, ity of infusion 04:30: 03:39 1,000 [...] t} Oral, ity of (METAMUCIL 21:00: DAILY, [place] (SUGAR 00 First dose Medical FREE)) 3.4 [...] ity o f (PF)) 22:45: 21:59 Push, [place] injection 00 :00 ONCE, 1 Medical 50 mcg dose, On Branch Thu04/02/22 at 1745, Routine ondansetron Yes 4mg 4 mg, Slow Univers (ZOFRAN 8-10 IV Push, ity of (PF)) 22:06: Q6HPRN, [place] injection 4 55 Starting Medi mariusz mg on Thu Branch 04/02/22 at 1706, Until Discontinu ed, Routine, Nausea and Vomiting (N/V) acetaminoph 2021-0 Yes 650mg 650 mg, Un piyush en 8-10 Oral, ity of (TYLENOL) 22:06: Q6HPRN, [place] tablet 650 46 Starting Medic al mg [...] 8-10 medication it y of 18:45: s [place] [address] Medical Branch ferrous No Altered 325mg QD Take 1 [...] tablet intestinal 60 days ostomy ferrous 2021- [id number] 325mg QD Take 1 [place] sulfate 325 02-20 tablet by He alth mg (65 mg 00:00: 23:59 mouth iron) 00 :00 daily for tablet 60 days ferrous 2021- No [id number] 325mg QD Take 1 [place] sulfate [...] intestinal ostomy loperamide 2021- No Altered 4mg Q.55395369 Take 2 [place] (IMODIUM) 2 02-20 bowel [id number] capsules Health mg capsule 00:00: 23:59 elimination [...] intestinal ostomy loperamide 2021- No Altered 4mg Q.59229501 Take 2 [place] (IMODIUM) 2 02-20-30 bowel [id number] capsules Health mg capsule 00:00: 23:59 elimination [...] intestinal ostomy loperamide 2021- No Altered 4mg Q.91837584 Take 2 [place] (IMODIUM) 2 02-20-30 bowel [id number] capsules Health mg capsule 00:00: 23:59 elimination [...] intestinal ostomy loperamide 2021- No Altered 4mg Q.[id number] Take 2 [place] (IMODIUM) 2 02-20-30 bowel [id number] capsules Health mg capsule 00:00: 23:59 elimination [...] intestinal ostomy loperamide 2021- No Altered 4mg Q.32290259 Take 2 [place] (IMODIUM) 2 02-20-30 bowel [id number] capsules Health mg capsule 00:00: 23:59 elimination [...] intestinal ostomy loperamide 2021- No Altered 4mg Q.15387348 Take 2 [place] (IMODIUM) 2 02-20-30 bowel [id number] capsules Health mg capsule 00:00: 23:59 elimination [...] intestinal ostomy loperamide 2021- No Altered 4mg Q.54504497 Take 2 [place] (IMODIUM) 2 02-20-30 bowel [id number] capsules Health mg capsule 00:00: 23:59 elimination [...] intestinal ostomy loperamide 2021- No Altered 4mg Q.60350117 Take 2 [place] (IMODIUM) 2 02-20 bowel [id number] capsules Health mg capsule 00:00: 23:59 elimination 3D by mouth 3 00 :00 due to times intestinal daily ostomy (before meals) for 30 days tamsulosin 2021- No Acute .4mg Take 1 Compa ris (FLOMAX) 02-20 kidney capsule by He alth 0.4 mg 00:00: 23:59 injury mouth capsule 00 :00 every evening for 30 days psyllium 2021- No [id number] 1{packe Take 1 [place] (METAMUCIL) 02-20 t} Packet by Misael alth 6 gram PwPk 00:00: 23:59 mouth 00 :00 loperamide 2021- No [id number] 4mg Q.26419714 Take 2 [place] (IMODIUM) 2 02-20 [id number] capsules Health mg capsule 00:00: 23:59 3D by mouth 3 00 :00 times daily (before meals) for 30 days tamsulosin 2021- No [id number] .4mg Take 1 [place] (FLOMAX) 02-20 [id number] capsule by He alth 0.4 mg 00:: 23:59 mouth capsule 00 :00 every evening for 30 days psyllium 2021- No [id number] 1{packe Take 1 [place] (METAMUCIL) 02-20 t} Packet by Misael alth 6 gram PwPk 00:00: 23:59 mouth 00 :00 loperamide 2021- No [id number] 4mg Q.80267533 Take 2 [place] (IMODIUM) 2 02-20 [id number] capsules Health mg capsule 00:00: 23:59 3D by mouth 3 00 :00 times daily (before meals) for 30 days tamsulosin 2021- No [id number] .4mg Take 1 [place] (FLOMAX) 02-20 [id number] capsule by He alth 0.4 mg 00:00: 23:59 mouth capsule 00 :00 every evening for 30 days psyllium 2021- No Altered 1{packe Take 1 Lynne (METAMUCIL) 02-2030 bowel t} Packet by [facility] 6 gram PwPk 00:00: 23:59 elimination mouth 00 :00 due to intestinal ostomy loperamide 2021- No Altered 4mg Q.17386597 Take 2 Lynne (IMODIUM) 2 02-20 bowel [id number] capsules Health mg capsule 00:00: 23:59 elimination [...] intestinal ostomy loperamide 2021- No Altered 4mg Q.75599006 Take 2 Lynne (IMODIUM) 2 02-20 bowel [id number] capsules Health mg capsule 00:00: 23:59 elimination [...] intestinal ostomy loperamide 2021- No Altered 4mg Q.68853702 Take 2 Lynne (IMODIUM) 2 02-20-30 bowel [id number] capsules Health mg capsule 00:00: 23:59 elimination [...] intestinal ostomy loperamide 2021- No Altered 4mg Q.47068054 Take 2 Lynne (IMODIUM) 2 02-20-30 bowel [id number] capsules Health mg capsule 00:00: 23:59 elimination [...] intestinal ostomy loperamide 2021- No Altered 4mg Q.58176644 Take 2 Lynne (IMODIUM) 2 02-20-30 bowel [id number] capsules Health mg capsule 00:00: 23:59 elimination [...] intestinal ostomy loperamide 2021- No Altered 4mg Q.43022511 Take 2 Ylnne (IMODIUM) 2 02-20-30 bowel [id number] capsules Health mg capsule 00:00: 23:59 elimination [...] intestinal ostomy loperamide 2021- No Altered 4mg Q.97622110 Take 2 Lynen (IMODIUM) 2 02-20 bowel [id number] capsules Health mg capsule 00:00: 23:59 elimination [...] intestinal ostomy loperamide 2021- No Altered 4mg Q.39945501 Take 2 Lynne (IMODIUM) 2 02-20-30 bowel [id number] capsules Health mg capsule 00:00: 23:59 elimination [...] intestinal ostomy loperamide 2021- No Altered 4mg Q.74650155 Take 2 Lynne (IMODIUM) 2 02-2030 bowel [id number] capsules Health mg capsule 00:00: 23:59 elimination [...] intestinal ostomy loperamide 2021- No Altered 4mg Q.53560206 Take 2 Lynne (IMODIUM) 2 02-20- bowel [id number] capsules Health mg capsule 00:00: 23:59 elimination [...] intestinal ostomy loperamide 2021- No Altered 4mg Q.63260750 Take 2 Lynne (IMODIUM) 2 02-2030 bowel [id number] capsules Health mg capsule 00:00: 23:59 elimination [...] intestinal ostomy loperamide 2021- No Altered 4mg Q.41901430 Take 2 Lynne (IMODIUM) 2 02-20 bowel [id number] capsules Health mg capsule 00:00: 23:59 elimination [...] intestinal ostomy loperamide 2021- No Altered 4mg Q.64966715 Take 2 Lynne (IMODIUM) 2 02-20-30 bowel [id number] capsules Health mg capsule 00:00: 23:59 elimination [...] intestinal ostomy loperamide 2021- No Altered 4mg Q.97480837 Take 2 Lynne (IMODIUM) 2 02-20 bowel [id number] capsules Health mg capsule 00:00: 23:59 elimination [...] intestinal ostomy loperamide 2021- No Altered 4mg Q.59789046 Take 2 Lynne (IMODIUM) 2 02-20 bowel [id number] capsules Health mg capsule 00:00: 23:59 elimination [...] intestinal ostomy loperamide 2021- No Altered 4mg Q.91703405 Take 2 Lynne (IMODIUM) 2 02-20-30 bowel [id number] capsules Health mg capsule 00:00: 23:59 elimination [...] at 0900, STAT loperamide 2021- No 4mg Q.51453512 4 mg Lynne (IMODIUM) 02-19 [id number] (0.0565 Health capsule 4 07:30: 13:55 3D [...] .4mg 0.4 mg Alex is (FLOMAX) 02-18 (0.44829 Health capsule 0.4 21:00: 13:55 mg/kg), mg [...] at 2025, Until Thu02/20/22 at 1122 acetaminoph 2021- No 650mg 650 mg Momin [...] liquid 00 times daily nutritional 202-0 Yes [id number] 1{packa Take 1 Lynne supplemment 6-21 4102 ge} Package by Misael bertrand (BOOST) 00:00: mouth 3 oral liquid 00 times daily nutritional 202-0 Yes [id number] 1{packa Take 1 Lynne supplemment 6-21 4102 ge} Package by Misael bertrand (BOOST) 00:00: mouth 3 oral liquid 00 times daily nutritional 202-0 Yes [id number] 1{packa Take 1 Lynne supplemment 6-21 4102 [...] oral liquid 00 times daily psyllium 0 2022- No Altered 1{packe Take 1 Lynne (METAMUCIL) 02-11 06-30 bowel t} [facility] by 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 psyllium 2021- No Altered 1{packe Take 1 Lynne (METAMUCIL) 02-11 bowel t} Packet by [facility] 6 gram PwPk 00:00: 00:00 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 psyllium 2021- No Altered 1{packe Take 1 Lynne (METAMUCIL) 02-11 bowel t} Packet by [facility] 6 gram PwPk 00:00: 00:00 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 lactated 2021- No at 125 Lynne Ringers 02-09 06-20 mL/hr, Health infusion 09:30: 09:29 Intravenou 00 :00 s, CONTINUOUS , Starting on 02/09/22 at 0930, Until 02/10/22 at 0929 lactated 2021- No at 125 Lynne Ringers 18 06-19 mL/hr, Health infusion 10:30: 10:29 Intravenou 00 :00 s, CONTINUOUS , Starting on 02/08/22 at 1030, Until 02/09/22 at 1029 ferrous 2021- No 325mg QD 325 mg Lynne sulfate 325 02-08 (4.33 Health mg (65 mg 09:00: 15:22 mg/kg), iron) 00 :37 Oral, tablet 325 DAILY, 30 mg doses, First dose on 02/08/22 at 0900, Last dose on 03/09/22 at 0900, STAT cyanocobala 2021- No 1000ug QD 1,000 mcg Lynne min 02-08 (13.3 Health (vitamin 09:00: 15:22 mcg/kg), B-12) 1,000 00 :37 Oral, mcg tablet DAILY, 30 1,000 mcg doses, First dose on 02/08/22 at 0900, Last dose on 03/09/22 at 0900, STAT ascorbic 2021- No 250mg QD 250 mg Harri s acid 02-08 (3.33 Health (vitamin C) 09:00: 15:22 mg/kg), tablet 250 00 :37 Oral, mg DAILY, 30 doses, First dose on 02/08/22 at 0900, Last dose on 03/09/22 at 0900, STAT tamsulosin 2021- No .4mg 0.4 mg Alex is (FLOMAX) 02-07 (0.05165 Health capsule 0.4 21:00: 15:22 mg/kg), mg 00 :37 Oral, EVERY EVENING, 30 doses, First dose on Thu02/07/22 at 2100, Last dose on Thu03/08/22 at 2100, STAT lactated No at 125 Lynne Ringers 02-0718 mL/hr, Health infusion 18:42: 10:28 Intravenou 00 :44 s, CONTINUOUS , Starting on Thu02/07/22 at 1842, Until Thu02/08/22 at 1028 psyllium 2021- No 1{packe Q.44126112 1 Packet, Lynne (METAMUCIL) 02-07 t} [id number] Oral, 3 Health oral packet 18:00: 15:22 3D TIMES 1 Packet 00 :37 DAILY BEFORE MEALS, 90 doses, First dose on Thu02/07/22 at 1800, Last dose on Thu03/09/22 at 1130, STAT loperamide No 4mg Q.65114632 4 mg Lynne (IMODIUM) 02-07 [id number] (0.0533 Health capsule 4 17:44: 15:22 3D mg/kg), mg 00 :37 Oral, 3 TIMES DAILY BEFORE MEALS, 90 doses, First dose on Thu02/07/22 at 1744, Last dose on Thu03/09/22 at 1130, STAT ondansetron No 4mg 4 mg Alexi s (ZOFRAN) 02-07 (0.0533 Health injection 4 [...] STAT sodium 2021- No 2000mL at 999 Lynne chloride 02-07 06-17 mL/hr, Health 0.9 % 13:57: 14:15 Intravenou infusion 00 :00 s, ONCE, 1 2,000 mL dose, On Thu02/07/22 at 1357 ascorbic 2021- No Altered 250mg QD Take 1 Momin rris acid, 01-21 bowel tablet by [facility] vitamin C, 00:00: 23:59 elimination mouth 250 mg 00 :00 due to daily for tablet intestinal 60 days ostomy magnesium 2021- No Altered 800mg Q.5D Take 2 H arris oxide 01-21 bowel tablets by [facility] (MAG-OX) 00:00: 23:59 elimination mouth 2 400 mg 00 :00 due to times (241.3 mg intestinal daily for magnesium) ostomy 60 days tablet multivitami 2021- No Altered 1{tbl} QD Take 1 Lynne n with 01-21 bowel tablet by [facility] folic acid 00:00: 23:59 elimination mouth (THERA) 400 00 :00 due to daily for mcg tablet intestinal 60 days ostomy ascorbic 2021- No Altered 250mg QD Take 1 Momin rris acid, 01-21 bowel tablet by [facility] vitamin C, 00:00: 23:59 elimination mouth 250 mg 00 :00 due to daily for tablet intestinal 60 days ostomy magnesium 2021- No Altered 800mg Q.5D Take 2 H arris oxide 01-21-30 bowel tablets by [facility] (MAG-OX) 00:00: 23:59 elimination mouth 2 400 mg 00 :00 due to times (241.3 mg intestinal daily for magnesium) ostomy 60 days tablet multivitami 2021- No Altered 1{tbl} QD Take 1 Lynne n with 01-21-30 bowel tablet by [facility] folic acid 00:00: 23:59 elimination mouth (THERA) 400 00 :00 due to daily for mcg tablet intestinal 60 days ostomy ascorbic 2021- No Altered 250mg QD Take 1 Momin rris acid, 01-2130 bowel tablet by [facility] vitamin C, 00:00: 23:59 elimination mouth 250 mg 00 :00 due to daily for tablet intestinal 60 days ostomy magnesium 2021- No Altered 800mg Q.5D Take 2 H arris oxide 01-21-30 bowel tablets by [facility] [...] H arris oxide 01-21-30 bowel tablets by [facility] [...] n with 5-31 07-30 bowel tablet [facility] H arris oxide 01-21-30 bowel tablets by [facility] [...] Momin rris acid, 01-21 bowel tablet by [facility] vitamin C, 00:00: 23:59 elimination mouth 250 mg 00 :00 due to daily for tablet intestinal 60 days ostomy magnesium 2021- No Altered 800mg Q.5D Take 2 H arris oxide 01-21-30 bowel tablets by [facility] (MAG-OX) 00:00: 23:59 elimination mouth 2 400 [...] arris oxide -31 07-30 bowel tablets by [facility] ([facility]) 00:00: 23:59 elimination mouth 2 400 mg 00 :00 due to times (241.3 mg intestinal daily for magnesium) ostomy 60 days tablet multivitami 2021- No Altered 1{tbl} QD Take 1 Lynne n with 5-23 03-30 bowel tablet by [facility] folic acid 00:00: 23:59 elimination mouth (THERA) 400 00 :00 due to daily for mcg tablet intestinal 60 days ostomy ascorbic 2021- No [id number] 250mg QD Take 1 H arris acid, 01-21-30 tablet by [facility] vitamin C, 00:00: 23:59 mouth 250 mg 00 :00 daily for tablet 60 days magnesium 2021- No [id number] 800mg Q.5D Take 2 Lynne oxide -23 03-30 tablets by [facility] ([facility]) 00:00: 23:59 mouth 2 400 mg 00 :00 times (241.3 mg daily for magnesium) 60 days tablet multivitami 2021- No [id number] 1{tbl} QD Take 1 Lynne n with -23 03-30 tablet by [facility] folic acid 00:00: 23:59 mouth (THERA) 400 00 :00 daily for mcg tablet 60 days ascorbic 2021- No [id number] 250mg QD Take 1 H arris acid, 01-21-30 tablet by [facility] vitamin C, 00:00: 23:59 mouth 250 mg 00 :00 daily for tablet 60 days magnesium 2021- No [id number] 800mg Q.5D Take 2 Lynne oxide 5-23 03-30 tablets by [facility] ([facility]) 00:00: 23:59 mouth 2 400 mg 00 :00 times (241.3 mg daily for magnesium) 60 days tablet multivitami 2021- No [id number] 1{tbl} QD Take 1 Lynne n with 5- 07-30 tablet by [facility] folic acid 00:00: 23:59 mouth (THERA) 400 00 :00 daily for mcg tablet 60 days ascorbic 2021- No [id number] 250mg QD Take 1 H arris acid, 5- 07-30 tablet by [facility] vitamin C, 00:00: 23:59 mouth 250 mg 00 :00 daily for tablet 60 days magnesium 2021- No [id number] 800mg Q.5D Take 2 Lynne oxide 5- 07-30 tablets by Health (MAG-OX) 00:00: 23:59 mouth 2 400 mg 00 :00 times (241.3 mg daily for magnesium) 60 days tablet multivitami 2021- No [id number] 1{tbl} QD Take 1 Lynne n with -23 03-30 tablet by Health folic acid 00:00: 23:59 [...] 2021- No Altered 1{tbl} QD Take 1 Ylnne n with 01-2130 bowel tablet by Health [...] n with -23 03-30 bowel tablet by [facility] H arris oxide 01-21-30 bowel tablets by [facility] (MAG-OX) 00:00: 23:59 elimination mouth 2 400 [...] days ostomy loperamide 2021- No Altered 4mg Q.06546550 Take 2 Lynne (IMODIUM) 2 01-21 bowel [id number] capsules Health mg capsule 00:00: 00:00 elimination [...] days ostomy loperamide 2021- No Altered 4mg Q.82048823 Take 2 Lynne (IMODIUM) 2 01-21-30 bowel [id number] capsules Health mg capsule 00:00: 00:00 elimination [...] days ostomy loperamide 2021- No Altered 4mg Q.98292381 Take 2 Lynne (IMODIUM) 2 01-21-30 bowel [id number] capsules Health mg capsule 00:00: 00:00 elimination [...] days ostomy loperamide 2021- No Altered 4mg Q.95416305 Take 2 Lynne (IMODIUM) 2 01-21-30 bowel [id number] capsules Health mg capsule 00:00: 00:00 elimination [...] days ostomy loperamide 2021- No Altered 4mg Q.26412189 Take 2 Lynne (IMODIUM) 2 01-21 bowel [id number] capsules Health mg capsule 00:00: 00:00 elimination [...] days ostomy loperamide 2021- No Altered 4mg Q.39753397 Take 2 Lynne (IMODIUM) 2 01-21 bowel [id number] capsules Health mg capsule 00:00: 00:00 elimination [...] days ostomy loperamide 2021- No Altered 4mg Q.29062972 Take 2 Lynne (IMODIUM) 2 01-21 bowel [id number] capsules Health mg capsule 00:00: 00:00 elimination [...] days ostomy loperamide 2021- No Altered 4mg Q.41278668 Take 2 Lynne (IMODIUM) 2 01-21 bowel [id number] capsules Health mg capsule 00:00: 00:00 elimination 3D by mouth 3 00 :00 due to times intestinal daily ostomy (before meals) for 30 days tamsulosin 2021- No [id number] .4mg Take 1 Lynne (FLOMAX) 01-21 172454 capsule by [facility] 0.4 mg 00:00: 00:00 mouth capsule 00 :00 every evening for 30 days ferrous 2021- No [id number] 325mg QD Take 1 Momin rris sulfate 325 01-21 tablet by [facility] mg (65 mg 00:00: 00:00 mouth iron) 00 :00 daily for tablet 60 days loperamide 2021- No [id number] 4mg Q.24550982 Take 2 Lynne (IMODIUM) 2 01-21 [id number] capsules Health mg capsule 00:00: 00:00 3D [...] days ostomy loperamide 2021- No Altered 4mg Q.59125447 Take 2 Lynne (IMODIUM) 2 01-21 bowel [id number] capsules Health mg capsule 00:00: 00:00 elimination [...] days ostomy loperamide 2021- No Altered 4mg Q.95918191 Take 2 Lynne (IMODIUM) 2 01-21 bowel [id number] capsules Health mg capsule 00:00: 00:00 elimination [...] days ostomy loperamide 2021- No Altered 4mg Q.13106031 Take 2 Lynne (IMODIUM) 2 01-21 bowel [id number] capsules Health mg capsule 00:00: 00:00 elimination [...] 60 days ostomy loperamide No Altered 4mg Q.08415295 Take 2 Lynne (IMODIUM) 2 01-21 bowel [id number] capsules Health mg capsule 00:00: 00:00 elimination [...] days ostomy loperamide 2021- No Altered 4mg Q.96493900 Take 2 Lynne (IMODIUM) 2 01-21 bowel [id number] capsules Health mg capsule 00:00: 00:00 elimination [...] days ostomy loperamide 2021- No Altered 4mg Q.76222113 Take 2 Lynne (IMODIUM) 2 01-21 bowel [id number] capsules Health mg capsule 00:00: 00:00 elimination [...] days ostomy loperamide 2021- No Altered 4mg Q.66126098 Take 2 Lynne (IMODIUM) 2 01-21 bowel [id number] capsules Health mg capsule 00:00: 00:00 elimination [...] days ostomy loperamide 2021- No Altered 4mg Q.97354156 Take 2 Lynne (IMODIUM) 2 01-21 bowel [id number] capsules Health mg capsule 00:00: 00:00 elimination [...] days ostomy loperamide 2021- No Altered 4mg Q.99425889 Take 2 Lynne (IMODIUM) 2 01-21 bowel [id number] capsules Health mg capsule 00:00: 00:00 elimination [...] 60 days ostomy loperamide No Altered 4mg Q.70736237 Take 2 Lynne (IMODIUM) 2 01-21 bowel [id number] capsules Health mg capsule 00:00: 00:00 elimination [...] days ostomy loperamide 2021- No Altered 4mg Q.31233323 Take 2 Lynne (IMODIUM) 2 01-21 bowel [id number] capsules Health mg capsule 00:00: 00:00 elimination [...] days ostomy loperamide 2021- No Altered 4mg Q.99213216 Take 2 Lynne (IMODIUM) 2 01-21 bowel [id number] capsules Health mg capsule 00:00: 00:00 elimination [...] days ostomy loperamide 2021- No Altered 4mg Q.33054207 Take 2 Lynne (IMODIUM) 2 01-21 bowel [id number] capsules Health mg capsule 00:00: 00:00 elimination [...] days ostomy loperamide 2021- No Altered 4mg Q.89494393 Take 2 Lynne (IMODIUM) 2 01-21- bowel [id number] capsules Health mg capsule 00:00: 00:00 elimination [...] days ostomy loperamide 2021- No Altered 4mg Q.49183774 Take 2 Lynne (IMODIUM) 2 --30 bowel [id number] capsules Health mg capsule 00:00: 00:00 elimination [...] days ostomy loperamide 2021- No Altered 4mg Q.28259678 Take 2 Lynne (IMODIUM) 2 --30 bowel [id number] capsules Health mg capsule 00:00: 00:00 elimination 3D by mouth 3 00 :00 due to times intestinal daily ostomy (before meals) for 30 days psyllium 2021- No Altered 1{packe Q.25177703 Take 1 Lynne (METAMUCIL) 01-21- bowel t} [id number] Packet by [facility] 6 gram PwPk 00:00: 00:00 elimination 3D mouth 3 00 :00 due to times intestinal daily ostomy (before meals) for 90 days psyllium 2021- No Altered 1{packe Q.70552396 Take 1 Lynne (METAMUCIL) 01-21- bowel t} [id number] Packet by [facility] 6 gram PwPk 00:00: 00:00 elimination 3D mouth 3 00 :00 due to times intestinal daily ostomy (before meals) for 90 days psyllium 2021- No Altered 1{packe Q.89776731 Take 1 Lynne (METAMUCIL) 01-21 bowel t} [id number] Packet by [facility] 6 gram PwPk 00:00: 00:00 elimination 3D mouth 3 00 :00 due to times intestinal daily ostomy (before meals) for 90 days psyllium 2021- No Altered 1{packe Q.99997404 Take 1 Lynne (METAMUCIL) 01-21 bowel t} [id number] Packet by [facility] 6 gram PwPk 00:00: 00:00 elimination 3D mouth 3 00 :00 due to times intestinal daily ostomy (before meals) for 90 days psyllium 2021- No Altered 1{packe Q.33218461 Take 1 Lynne (METAMUCIL) 01-21 bowel t} [id number] Packet by [facility] 6 gram PwPk 00:00: 00:00 elimination 3D mouth 3 00 :00 due to times intestinal daily ostomy (before meals) for 90 days psyllium 2021- No Altered 1{packe Q.70293164 Take 1 Lynne (METAMUCIL) 01-21 bowel t} [id number] Packet by [facility] 6 gram PwPk 00:00: 00:00 elimination 3D mouth 3 00 :00 due to times intestinal daily ostomy (before meals) for 90 days psyllium 2021- No Altered 1{packe Q.94804530 Take 1 Lynne (METAMUCIL) 01-21 bowel t} [id number] Packet by [facility] 6 gram PwPk 00:00: 00:00 elimination 3D mouth 3 00 :00 due to times intestinal daily ostomy (before meals) for 90 days psyllium 2021- No Altered 1{packe Q.23613306 Take 1 Lynne (METAMUCIL) 01-21 bowel t} [id number] Packet by [facility] 6 gram PwPk 00:00: 00:00 elimination 3D mouth 3 00 :00 due to times intestinal daily ostomy (before meals) for 90 days psyllium 2021- No Altered 1{packe Q.19549007 Take 1 Lynne (METAMUCIL) 01-21 bowel t} [id number] Packet by [facility] 6 gram PwPk 00:00: 00:00 elimination 3D mouth 3 00 :00 due to times intestinal daily ostomy (before meals) for 90 days psyllium 2021- No Altered 1{packe Q.48172863 Take 1 Lynne (METAMUCIL) 01-21 bowel t} [id number] Packet by [facility] 6 gram PwPk 00:00: 00:00 elimination 3D mouth 3 00 :00 due to times intestinal daily ostomy (before meals) for 90 days psyllium 2021- No Altered 1{packe Q.57942095 Take 1 Lynne (METAMUCIL) 01-21 bowel t} [id number] Packet by [facility] 6 gram PwPk 00:00: 00:00 elimination 3D mouth 3 00 :00 due to times intestinal daily ostomy (before meals) for 90 days psyllium 2021- No Altered 1{packe Q.14893801 Take 1 Lynne (METAMUCIL) 01-21 bowel t} [id number] Packet by [facility] 6 gram PwPk 00:00: 00:00 elimination 3D mouth 3 00 :00 due to times intestinal daily ostomy (before meals) for 90 days psyllium 2021- No Altered 1{packe Q.43724158 Take 1 Lynne (METAMUCIL) 01-21 bowel t} [id number] Packet by [facility] 6 gram PwPk 00:00: 00:00 elimination 3D mouth 3 00 :00 due to times intestinal daily ostomy (before meals) for 90 days psyllium 2021- No Altered 1{packe Q.20115995 Take 1 Lynne (METAMUCIL) 01-21 bowel t} [id number] Packet by [facility] 6 gram PwPk 00:00: 00:00 elimination 3D mouth 3 00 :00 due to times intestinal daily ostomy (before meals) for 90 days psyllium 2021- No Altered 1{packe Q.39101205 Take 1 Lynne (METAMUCIL) 01-21 bowel t} [id number] Packet by [facility] 6 gram PwPk 00:00: 00:00 elimination 3D mouth 3 00 :00 due to times intestinal daily ostomy (before meals) for 90 days psyllium 2021- No Altered 1{packe Q.68849442 Take 1 Lynne (METAMUCIL) 01-21 bowel t} [id number] Packet by [facility] 6 gram PwPk 00:00: 00:00 elimination 3D mouth 3 00 :00 due to times intestinal daily ostomy (before meals) for 90 days psyllium 2021- No Altered 1{packe Q.76208411 Take 1 Lynne (METAMUCIL) 01-21 bowel t} [id number] Packet by [facility] 6 gram PwPk 00:00: 00:00 elimination 3D mouth 3 00 :00 due to times intestinal daily ostomy (before meals) for 90 days psyllium 2021- No Altered 1{packe Q.53982421 Take 1 Lynne (METAMUCIL) 01-21 bowel t} [id number] Packet by [facility] 6 gram PwPk 00:00: 00:00 elimination 3D mouth 3 00 :00 due to times intestinal daily ostomy (before meals) for 90 days psyllium 2021- No Altered 1{packe Q.60222003 Take 1 Lynne (METAMUCIL) 01-21 bowel t} [id number] Packet by [facility] 6 gram PwPk 00:00: 00:00 elimination 3D mouth 3 00 :00 due to times intestinal daily ostomy (before meals) for 90 days psyllium 2021- No Altered 1{packe Q.16730476 Take 1 Lynne (METAMUCIL) 01-21 bowel t} [id number] Packet by [facility] 6 gram PwPk 00:00: 00:00 elimination 3D mouth 3 00 :00 due to times intestinal daily ostomy (before meals) for 90 days psyllium 2021- No Altered 1{packe Q.95243756 Take 1 [place]ne (METAMUCIL) 01-21 bowel t} [id number] Packet by [employer] 6 gram PwPk 00:00: 00:00 elimination 3D mouth 3 00 :00 due to times intestinal daily ostomy (before meals) for 90 days psyllium 2021- No Altered 1{packe Q.08747550 Take 1 [place] (METAMUCIL) 01-21 bowel t} [id number] Packet by [employer] 6 gram PwPk 00:00: 00:00 elimination 3D mouth 3 00 :00 due to times intestinal daily ostomy (before meals) for 90 days psyllium 2021- No Altered 1{packe Q.47227734 Take 1 [place] (METAMUCIL) 01-21 bowel t} [id number] Packet by [employer] 6 gram PwPk 00:00: 00:00 elimination 3D mouth 3 00 :00 due to times intestinal daily ostomy (before meals) for 90 days psyllium 2021- No Altered 1{packe Q.25601545 Take 1 [place] (METAMUCIL) 01-21 bowel t} [id number] Packet by [employer] 6 gram PwPk 00:00: 00:00 elimination 3D mouth 3 00 :00 due to times intestinal daily ostomy (before meals) for 90 days tamsulosin 2021- No Benign .4mg QD Take 1 Momin rris (FLOMAX) 01-12 prostatic capsule by [employer] 0.4 mg 00:00: 00:00 hyperplasia mouth capsule 00 :00 , daily. unspecified Start on whether 01/12/2022. lower urinary tract symptoms present tamsulosin 2021- No Benign .4mg QD Take 1 M[place] r[place] (FLOMAX) 01-12 prostatic capsule by [facility] 0.4 mg 00:00: 00:00 hyperplasia mouth capsule 00 :00 , daily. unspecified Start on whether 01/12/2022. lower urinary tract symptoms present tamsulosin 2021- No Benign .4mg QD Take 1 M[place] r[place] (FLOMAX) 01-12 prostatic capsule by [facility] 0.4 mg 00:00: 00:00 hyperplasia mouth capsule [...] .4mg QD Take 1 Momin rris (FLOMAX) 01-1231 prostatic capsule by [facility] [...] 00 daily mcg tablet cyanocobala 2021-0 Yes [id number] 1000ug QD Take 1 [place] min, 5-21 4102 tablet by Health vitamin 00:00: mouth B-12, 1,000 00 daily mcg tablet cyanocobala 2-0 Yes [id number] 1000ug QD Take 1 [place] min, 5-21 4102 tablet by Health vitamin 00:00: mouth B-12, 1,000 00 daily mcg tablet cyanocobala 2021-0 Yes [id number] 1000ug QD Take 1 [place] min, 5-21 [...] 06-21 n due to ge} Package by [employer] (BOOST) 00:00: 00:00 starvation mouth 3 oral [...] (IMODIUM) 2 5-11 01-21 stoma capsule by Health mg capsule 00:00: 00:00 mouth once 00 :00 for 1 dose loperamide 2021- No Disorder of 2mg Take 1 [place] (IMODIUM) 2 5-11 01-21 stoma capsule by Health mg capsule [...] 09/07/21 at 2045, JOÃO iopamidol 2021- No [id number] 100mL 100 mL, Univers (ISOVUE 09-08 Intravenou [...] Indication s: acute pain ondansetron 2021-0 Yes [id number] 4mg Take 1 Univers 4 mg 1-15 [...] Indication s: acute pain ondansetron 2021-0 Yes [id number] 4mg Take 1 Univers 4 mg 1-15 [...] Indication s: acute pain ondansetron 2021-0 Yes [id number] 4mg Take 1 Univers 4 mg 1-15 [...] Indication s: acute pain ondansetron 2021-0 Yes [id number] 4mg Take 1 Univers 4 mg 1-15 [...] Indication s: acute pain ondansetron 2-0 Yes [id number] 4mg Take 1 Univers 4 mg 1-15 [...] Indication s: acute pain ondansetron 2021- No [id number] 4mg Take 1 Univers 4 mg -15 [...] mcg tablet 00:00: mouth [place] 00 daily. [facility] Branch vitamin 2021-0 Yes 1000ug Take 1 Univer s B-12 1,000 1-13 tablet by ity of mcg tablet 00:00: mouth [place] 00 daily. [facility] Branch vitamin 2021-0 Yes 1000ug Take 1 Univer s B-12 1,000 1-13 tablet by ity of mcg tablet 00:00: mouth [place] 00 daily. [facility] Branch vitamin 2021-0 Yes 1000ug Take 1 Univer s B-12 1,000 1-13 tablet by ity of mcg tablet 00:00: mouth [place] 00 daily. [facility] Branch vitamin 2021-0 Yes 1000ug Take 1 Univer s B-12 1,000 1-13 tablet by ity of mcg tablet 00:00: mouth [place] 00 daily. [facility] Branch vitamin 2021-0 Yes 1000ug Take 1 Univer s B-12 1,000 1-13 tablet by ity of mcg tablet 00:00: mouth [place] 00 daily. [facility] vitamin 2021-0 Yes 1000ug Take 1 Univer [...] Branch daily with meals. loperamide 2022-0 Yes [id number] 2mg Take 1 Univers 2 mg 1-12 [...] Branch daily with meals. loperamide 2022-0 Yes [id number] 2mg Take 1 Univers 2 mg 1-12 [...] Branch daily with meals. loperamide 2022-0 Yes [id number] 2mg Take 1 Univers 2 mg 1-12 [...] Branch daily with meals. loperamide 2022-0 Yes [id number] 2mg Take 1 Univers 2 mg 1-12 [...] Branch daily with meals. loperamide 2022-0 Yes [id number] 2mg Take 1 Univers 2 mg 1-12 [...] Branch daily with meals. loperamide 2022-0 Yes [id number] 2mg Take 1 Univers 2 mg 1-12 [...] Branch daily with meals. loperamide 2022-0 Yes [id number] 2mg Take 1 Univers 2 mg 1-12 [...] Branch daily with meals. loperamide 2022-0 Yes [id number] 2mg Take 1 Univers 2 mg 1-12 [...] as needed for Pain (scale 1-3). ibuprofen 2-0 Yes 600mg Take 1 Unive rs 600 mg 1-12 tablet by ity of tablet 00:00: mouth 3 00 (three) Medical times Branch daily with meals. loperamide 2-0 Yes [id number] 2mg Take 1 Univers 2 mg 1-12 capsule by ity of capsule 00:00: mouth 2 00 (two) Medical times Branch daily. psyllium 2022-0 Yes 1{packe Take 1 Univ ers 3.4 gram 1-12 t} Packet by ity of packet 00:00: mouth [place] (two) Medical times Branch daily. acetaminoph 2022-0 2022- No 650mg Take 2 Un piyush en 325 mg 1-12 08-10 tablets by ity of tablet 00:00: 00:00 mouth [place] 00 :00 every 6 Medical (six) Branch hours as needed for Pain (scale 1-3). ibuprofen 2-0 2022- No 600mg Take 1 Univ ers 600 mg 1-12 08-10 tablet by ity of tablet 00:00: 00:00 mouth 3 [place] 00 :00 (three) Medical times Branch daily with meals. loperamide 2022-0 2022- No [id number] 2mg Take 1 Univers 2 mg 1-12 08-10 capsule by ity of capsule 00:00: 00:00 mouth 2 [place] 00 :00 (two) Medical times Branch daily. psyllium 2022-0 2022- No 1{packe Take 1 Uni vers 3.4 gram 1-12 08-10 t} Packet by ity o f packet 00:00: 00:00 mouth 2 [place] 00 :00 (two) Medical times Branch daily. vitamin 2022-0 Yes 1000ug 1,000 mcg, Un piyush B-12 1-11 Oral, ity of (CYANOCOBAL 20:00: DAILY, [place] TURNER) 00 First dose Medical tablet on Tue Branch 1,000 mcg 09/03/21 at 1400, Until Discontinu ed, Routine vitamin Yes 1000ug 1,000 mcg, Un piyush B-12 09-03 Oral, ity of (CYANOCOBAL 20:00: DAILY, [place]NER[place] 00 First dose Medical tablet on [facility] 1,000 mcg 09/03/21 at 1400, Until Discontinu [...] Q6HPRN, [place] mg 55 Starting Medical on [facility] 09/03/21 at 0828, Until Discontinu ed, Routine, Pain (scale 4-6) traMADoL Yes 50mg 50 mg, Univers (ULTRAM) 09-03 Oral, ity of tablet 50 14:28: Q6HPRN, [place] mg 55 Starting Medical on [facility] 09/03/21 at 0828, Until Discontinu [...] at 0826, Routine sulfur 2021-0 2021- No [id number] 5mL 5 mL, Unive rs hexafluorid 09-02 Intravenou i ty of e microsphr 21:30: 21:30 s, ONCE, 1 [place] (LUMASON) 00 :00 dose, On Medica l injection 5 Mon Branch mL 09/02/21 at 1530, Routine
crew team member approving Restricted medication : CAMILA GREGORY [...] 14:00: First dose [place] SINGLES) 00 on [facility] Medical 3.4 gram 08/31/21 at [...] First dose [place] capsule 2 00 on [facility] Medical mg 08/31/21 at Branch 0800, Until Discontinu ed, Routine psyllium 2022-0 Yes 1{packe 1 Packet, U nivers (METAMUCIL 1-08 t} Oral, BID, ity of FIBER 14:00: First dose [place] SINGLES) 00 on [facility] Medical 3.4 gram 08/31/21 at Branch packet 1 0800, Packet Until Discontinu ed, Routine heparin 2-0 Yes 5000U 5,000 Univers (porcine) 1-08 Units, ity of injection 14:00: Subcutaneo [place] 5,000 Units 00 us, Q12H, Med ical First dose Branch on [facility] 08/31/21 at 0800, Until Discontinu ed, Routine NaCl 0.9% 2021-0 2- No at 125 Unive rs (NS) IV 1-08 01-08 mL/hr, IV ity of infusion 07:15: 08:03 Infusion, [place] as 00 :43 CONTINUOUS Medical , Starting Branch on 08/31/21 at 0115, Until 08/31/21 at 0203, Routine acetaminoph 2021-0 Yes 650mg 650 mg, Un piyush en 08 Oral, ity of (TYLENOL) 06:03: Q6HPRN, [place] tablet 650 36 Starting Medic al mg on Sat Branch 08/31/21 at 0003, Until Discontinu ed, Routine, Pain (scale 1-3) acetaminoph 2021-0 Yes 650mg 650 mg, Un piyush en 08 Oral, ity of (TYLENOL) 06:03: Q6HPRN, [place] tablet 650 36 Starting Medic al mg [...] [place] Puff 00 :00 dose, On Medical [facility] 08/29/21 Branch at 1900, JOÃO acetaminoph 2021- No 1000mg 1,000 mg, Univers en 08-30 Oral, ity of (TYLENOL) 00:30: 00:20 ONCE, 1 [place] tablet 00 :00 dose, On Medical 1,000 mg [facility] 08/29/21 Branc h at 1830, Routine lidocaine 2021- No 10mL 10 mL, Unive rs 2% viscous 08-30 Oral, ity of (LIDOCAINE 00:30: 00:20 ONCE, 1 [place] VISCOUS) 2 00 :00 dose, On Medic al % solution [facility] 08/29/21 Bra nch 10 mL at 1830, JOÃO benzonatate 2021- No 100mg 100 mg, U nivers (TESSALON 1-07 01-07 Oral, ity of PERLES) 00:30: 00:22 ONCE, 1 [place] capsule 100 00 :00 dose, On Medi mariusz mg [place] 08/29/21 Branch at 1830, Routine No known No Univers medications -06 ity of 19:35: [place] 26 Medical Branch NaCl 0.9% 2020-08 Yes 10mL 10 mL, Univer s (NS) 2-12 Slow IV ity of injection 19:13: Push, PRN, [place] 10 mL 37 Starting Medical on [place] Branch 08/04/21 at 1313, Until Discontinu ed, Routine, line maintenanc e lidocaine 2020-08 Yes 5mL 5 mL, Univers 1% (PF) 2-12 Subcutaneo ity of (XYLOCAINE) 19:13: us, PRN, [place] injection 5 37 Starting Medi mariusz mL on [place] Branch 08/04/21 at 1313, Until Discontinu ed, Routine, Local anesthesia dextrose 5% 2020-08 Yes IV Univer s and 0.45% 2-12 Infusion, ity o f NaCl with 16:00: CONTINUOUS [place] KCl 40 mEq 00 , Starting Med ical 1,000 mL IV on [place] Branch Solution 08/04/21 at 1000, Until Discontinu ed, 1,000 mL, at 125 mL/hr NaCl 0.9% 2020-08- No 1000mL at 999 Uni vers (NS) bolus 2-12 12-12 mL/hr, ity of infusion 15:53: 17:17 1,000 mL, [place]avi as 1,000 mL 00 :00 IV Medical Piggyback, Branch ONCE, 1 dose, On [place] 08/04/21 at 1000, JOÃO D5W 0.45% 2020-08- No IV Univers NaCl + KCL 2-10 12-12 Infusion, ity of 20 mEq RTU 15:00: 15:56 CONTINUOUS [place] 20 mEq/L 00 :45 , Starting Medic al 1,000 mL IV on Thu Branch Solution 08/02/21 at 0900, Until [place] 08/04/21 at 0956, 1,000 mL, at 100 [...] Until Discontinu ed, Routine iopamidol 2020-08- No [id number] 100mL 100 mL, Univers (ISOVUE 10-01 Intravenou ity o f 370-500 mL) 05:14: 05:14 s, ONCE, 1 [place] injection 00 :00 dose, On Medica l 100 mL [facility] 07/30/21 at 2315, Routine morpHINE 2020-08 No 2mg 2 mg, Slow Un piyush injection 2 09-30 IV Push, ity of mg 17:00: 17:10 ONCE, 1 [place] 00 :00 dose, On Medical [facility] 07/30/21 at 1115, Routine enoxaparin 2020-08 Yes 40mg 40 mg, Unive rs (LOVENOX) 09-30 Subcutaneo ity of injection 15:00: us, DAILY, [place] 40 mg 00 First dose Medical (after Branch last modificati on) on [facility] 07/30/21 at 0900, Until Discontinu ed, Routine pantoprazol 2020-08 No 40mg 40 mg, Uni vers e 09-30 Oral, ity of (PROTONIX) 15:00: 13:40 DAILY, [place] EC tablet 00 :20 First dose Medi mariusz 40 mg on [facility] 07/30/21 at 0900, Until Discontinu ed, Routine loperamide 2020-08 No 4mg 4 mg, Unive rs (IMODIUM 09-30 Oral, TID, ity of A-D) 14:00: 13:19 First dose [place] capsule 4 00 :28 on [facility] Medical mg 07/30/21 at Branch 0800, Until Discontinu ed, Routine psyllium 2020-08- No 1{packe 1 Packet, Univers (METAMUCIL 09-30 t} Oral, TID, it y of FIBER 14:00: 13:19 First dose [place] SINGLES) 00 :28 on [facility] Medical 3.4 gram 07/30/21 at [facility] h packet 1 0800, Packet Until Discontinu ed, Routine lactated 2020-08- No 1000mL at 75 Unive rs ringers IV 2-07 12-10 mL/hr, ity of infusion 07:30: 13:59 [...] (ZOFRAN 2 IV Push, ity of (PF)) 06:10: Administer [...] 2-07 Oral, ity of (TYLENOL) 06:10: Q6HPRN, [place] tablet 650 40 Starting Medic al mg on Thu [place] 07/30/21 at 0010, Until Discontinu ed, Routine, Pain (scale 1-3) morpHINE 2020-08- No 4mg 4 mg, Slow Un piyush injection 4 2-07 12-07 IV Push, ity of mg 03:30: 02:55 ONCE, 1 [place] 00 :00 dose, On Medical Mon [place] 07/29/21 at 2130, STAT psyllium 2020-08 Yes [id number] 1{packe Take 1 Univers 3.4 gram 2-03 t} Packet by ity of packet 00:00: mouth 3 [place] 00 (three) Medical times Branch daily. loperamide 2020-08 Yes [id number] 4mg Take 2 Univers 2 mg 2-03 capsules ity of capsule 00:00: by mouth 3 [place] 00 (three) Medical times Branch daily. pantoprazol 2020-08 Yes [id number] 40mg Take 1 Univers e 40 mg EC 2-03 tablet by ity of tablet 00:00: mouth [place] 00 daily. Medical Branch psyllium 2020-08 Yes [id number] 1{packe Take 1 Univers 3.4 gram 2-03 t} Packet by ity of packet 00:00: mouth 3 [place] 00 (three) Medical times Branch daily. loperamide 2020-08 Yes [id number] 4mg Take 2 Univers 2 mg 2-03 capsules ity of capsule 00:00: by mouth 3 [place] 00 (three) Medical times Branch daily. pantoprazol 2020-08 Yes [id number] 40mg Take 1 Univers e 40 mg EC 2-03 tablet by ity of tablet 00:00: mouth [place] 00 daily. Medical Branch psyllium 2020-08- No [id number] 1{packe Take 1 Univers 3.4 gram 2-03 12-13 t} Packet by ity o f packet 00:00: 00:00 mouth 3 [place] 00 :00 (three) Medical times Branch daily. loperamide 2020-08- No [id number] 4mg Take 2 Univers 2 mg 2-03 12-13 capsules ity of capsule 00:00: 00:00 by mouth 3 [place] as 00 :00 (three) Medical times Branch daily. pantoprazol 2020-08- No [id number] 40mg Take 1 Univers e 40 mg EC 2-03 12-13 tablet by ity of tablet 00:00: 00:00 mouth [place] 00 :00 daily. Medical Branch psyllium 2020-08- No [id number] 1{packe Take 1 Univers 3.4 gram 2-03 12-03 t} Packet by ity o f packet 00:00: 00:00 mouth 3 [place] 00 :00 (three) Medical times Branch daily for 90 days. loperamide 2020-08- No [id number] 4mg Take 2 Univers 2 mg 2-03 12-03 capsules ity of capsule 00:00: 00:00 by mouth 3 [place] as 00 :00 (three) Medical times Branch daily for 90 days. pantoprazol 2020-08- No [id number] 40mg Take 1 Univers e 40 mg EC 207-26 tablet by ity of tablet 00:00: 00:00 mouth [place] 00 :00 daily for Medical 90 days. Branch psyllium 2020-08- No [id number] 1{packe Take 1 Univers 3.4 gram 207-26 t} Packet by ity o f packet 00:00: 00:00 mouth 3 [place] 00 :00 (three) Medical times Branch daily. pantoprazol 2020-08- No [id number] 40mg Take 1 Univers e 40 mg EC 09-26 tablet by ity of tablet 00:00: 00:00 mouth [place] 00 :00 daily. Medical Branch loperamide 2020-08- No [id number] 4mg Take 2 Univers 2 mg 09-26 capsules ity of capsule 00:00: 00:00 by mouth 3 [place] 00 :00 (three) Medical times Branch daily. psyllium 2020-08- No [id number] 1{packe Take 1 Univers 3.4 gram 09-26 t} Packet by ity o f packet 00:00: 00:00 mouth 3 [place] 00 :00 (three) Medical times Branch daily. loperamide 2020-08- No [id number] 4mg Take 2 Univers 2 mg 09-26 capsules ity of capsule 00:00: 00:00 by mouth 3 [place] 00 :00 (three) Medical times Branch daily. pantoprazol 2020-08- No [id number] 40mg Take 1 Univers e 40 mg [...] 1-30 Oral, ity of (TYLENOL) 07:31: Q6HPRN, [place] tablet 650 37 Starting Medic al mg on Thu Branch 07/23/21 at 0131, Until Discontinu ed, Routine, Pain (scale 1-3) NaCl 0.9% 2020-08- No 1000mL at 999 Uni vers (NS) bolus 1-30 11-30 mL/hr, ity of infusion 06:46: 07:00 1,000 mL, [place]avi as 1,000 mL 00 :00 IV Medical Piggyback, [place] ONCE, 1 dose, On Thu07/23/21 at 0100, STAT heparin 2020-08 Yes 5000U 5,000 Univers (porcine) 0-09 Units, ity of injection 22:00: Subcutaneo [place] 5,000 Units 00 us, Q8H, Medi mariusz First dose Branch on [facility] 06/01/21 at 1700, Until Discontinu ed, Routine pantoprazol 2020-08 Yes 40mg 40 mg, Univ ers e 0-09 Oral, BID, ity of (PROTONIX) 14:45: First dose [place] EC tablet 00 on [facility] Medical 40 mg 06/01/21 at Branch 0945, Until Discontinu ed, Routine psyllium 2020-08 Yes 1{packe 1 Packet, U nivers (METAMUCIL 0-09 t} Oral, ity of FIBER 14:45: DAILY, [place] SINGLES) 00 First dose Medic al 3.4 gram on [facility] Branch packet 1 06/01/21 at Packet 0945, Until Discontinu ed, Routine traMADoL 2020-08 Yes 50mg 50 mg, Univers (ULTRAM) 0-09 Oral, ity of tablet 50 14:39: Q6HPRN, [place] mg 34 Starting Medical on [facility] Branch 06/01/21 at 0939, Until Discontinu ed, Routine, Pain (scale 4-6) HYDROcodone 2020-08 Yes 1{tbl} 1 tablet, Univers -acetaminop 0-09 Oral, ity of hen (NORCO 14:39: Q6HPRN, [place] 5) 5-325 mg 16 Starting Medi mariusz tablet 1 on [facility] Branch tablet 06/01/21 at 0939, Until Discontinu ed, Routine, Pain (scale 7-10) ondansetron 2020-08 Yes 4mg 4 mg, Slow Univers (ZOFRAN 0-09 IV Push, ity of (PF)) 14:38: Q6HPRN, [place] injection 4 58 Starting Medi mariusz mg on [facility] Branch 06/01/21 at 0938, Until Discontinu ed, Routine, Nausea and Vomiting (N/V) acetaminoph 2020-08 Yes 650mg 650 mg, Un piyush en 0-09 Oral, ity of (TYLENOL) 14:36: Q6HPRN, [place] tablet 650 07 Starting Medic al mg on [facility] Branch 06/01/21 at 0936, Until Discontinu ed, [...] Javi as 1,000 mL 00 :00 IV [facility] Piggyback, Branch ONCE, 1 dose, On Thu05/31/21 at 2045, STAT iopamidol 2020-08- No [id number] 100mL 100 mL, Univers (ISOVUE 0-09 10-09 [...] On Thu05/31/21 at 1830, STAT psyllium Yes [id number] 1{packe Take 1 Univers 3.4 gram 9-29 t} Packet by ity of packet 00:00: mouth [place] 00 daily. Medical Branch psyllium Yes [id number] 1{packe Take 1 Univers 3.4 gram 9-29 t} Packet by ity of packet 00:00: mouth [place] 00 daily. Medical Branch psyllium Yes [id number] 1{packe Take 1 Univers 3.4 gram 9-29 t} Packet by ity of packet 00:00: mouth [place] 00 daily. Medical Branch psyllium Yes [id number] 1{packe Take 1 Univers 3.4 gram 9-29 t} Packet by ity of packet 00:00: mouth [place] 00 daily. Medical Branch psyllium Yes [id number] 1{packe Take 1 Univers 3.4 gram 9-29 t} Packet by ity of packet 00:00: mouth [place] 00 daily. Medical Branch psyllium 2020- No [id number] 1{packe Take 1 Univers 3.4 gram 9-29 [...] IV Push, ity of (PF)) 00:15: Q6HPRN, [place] injection 4 13 Starting Medi mariusz mg [...] 05-21 Oral, ity of (TYLENOL) 00:15: Q6HPRN, [place] tablet 650 01 Starting Medic al mg [...] t} Oral, ity of FIBER 22:15: DAILY, [place] SINGLES) 00 First dose Medic al 3.4 gram (after Branch packet 1 last Packet modificati on) on Thu05/20/21 at 1715, Until Discontinu ed, Routine lactated 0 2020- No 2000mL at 999 Univ ers ringers IV 05-2027 mL/hr, ity of infusion 22:02: 22:36 2,000 mL, [place] 2,000 mL 00 :00 Intravenou Medic al s, ONCE, 1 [place] dose, On [facility] 05/20/21 at 1715, JOÃO ondansetron 2020- No 4mg 4 mg, Slow Univers (ZOFRAN 05-20 IV Push, ity of (PF)) 21:00: 20:15 ONCE, 1 [place] injection 4 00 :00 dose, On Medi mariusz mg [facility] 05/20/21 at 1600, JOÃO morpHINE No 4mg 4 mg, Slow Un piyush injection 4 05-20 IV Push, ity of mg 21:00: 20:15 ONCE, 1 [place] 00 :00 dose, On Medical [facility] 05/20/21 at 1600, STAT NaCl 0.9% No 500mL at 999 Univ ers (NS) bolus 05-20 mL/hr, 500 it y of infusion 21:00: 21:00 mL, IV [place] 500 mL 00 :00 Piggyback, Medical ONCE, 1 Branch dose, On [facility] 05/20/21 at 1600, STAT pantoprazol Yes 40mg 40 mg, Univ ers e 9-17 Oral, BID, ity of (PROTONIX) 01:00: First dose [place] EC tablet 00 on [facility] Medical 40 mg 05/09/21 at [place] 1999, Until Discontinu ed, Routine pantoprazol Yes 40mg 40 mg, Univ ers e 9-17 Oral, BID, ity of (PROTONIX) 01:00: First dose [place] EC tablet 00 on [facility] Medical 40 mg 05/09/21 at [place] 1999, Until Discontinu ed, Routine pantoprazol 2020- No [id number] 40mg Take 1 Univers e 40 mg EC 9-16 11-16 tablet by ity of tablet 00:00: 05:59 mouth 2 [place] 00 :00 (two) Medical times [place] daily pantoprazol 2020- No [id number] 40mg Take 1 Univers e 40 mg EC 9-16 11-16 tablet by ity of tablet 00:00: 05:59 mouth 2 [place] 00 :00 (two) Medical times [place] daily pantoprazol 2020- No [id number] 40mg Take 1 Univers e 40 mg EC 9-16 11-16 tablet by ity of tablet 00:00: 05:59 mouth 2 [place] 00 :00 (two) Medical times Branch daily pantoprazol 2020- No [id number] 40mg Take 1 Univers e 40 mg EC 9-16 11-16 tablet by ity of tablet 00:00: 05:59 mouth 2 [place] 00 :00 (two) Medical times Branch daily pantoprazol 2020- No [id number] 40mg Take 1 Univers e 40 mg EC 9-16 11-16 tablet by ity of tablet 00:00: 05:59 mouth 2 [place] 00 :00 (two) Medical times Branch daily pantoprazol 2020- No [id number] 40mg Take 1 Univers e 40 mg EC 9-16 11-16 tablet by ity of tablet 00:00: 05:59 mouth 2 [place] 00 :00 (two) Medical times Branch daily pantoprazol 2020- No [id number] 40mg Take 1 Univers e 40 mg [...] No 1000mL at 75 Univ ers infusion 915 09-16 mL/hr, IV ity o f 1,000 mL 15:15: 13:02 Infusion, [place] 00 :56 CONTINUOUS Medical , Starting Branch on Thu05/08/21 at 1015, Until Thu05/09/21 at 0802, Routine D5W-LR IV 2020- No [...] IV Push, ity of (PF)) 04:16: Q6HPRN, [place] injection 4 34 Starting Medi mariusz mg on Branch 05/07/21 at 2316, Until Discontinu ed, Routine, Nausea and Vomiting (N/V) ondansetron 0 Yes 4mg 4 mg, Slow Univers (ZOFRAN 9-15 IV Push, ity of (PF)) 04:16: Q6HPRN, [place] injection 4 34 Starting Medi mariusz mg on [facility] Branch 05/07/21 at 2316, Until [...] Q4HPRN, [place] 32 :32 Starting Medical on [facility] Branch 05/07/21 at 2316, Until Thu05/08/21 at 2315, Routine, Pain (scale 7-10) diazePAM 2020- No 5mg 5 mg, Slow Un piyush (VALIUM) 05-08 IV Push, ity of injection 5 02:45: 02:49 ONCE, 1 [place] mg 00 :00 dose, On [facility] 05/07/21 at 2145, STAT diazePAM 2020- No 5mg 5 mg, Slow Un piyush (VALIUM) 05-08 IV Push, ity of injection 5 02:45: 02:49 ONCE, 1 [place] mg 00 :00 dose, On [facility] 05/07/21 at 2145, STAT iopamidol 2020- No [id number] 100mL 100 mL, Univers (ISOVUE 05-08 Intravenou ity o f 370-500 mL) 02:15: 01:08 s, ONCE, 1 [place] injection 00 :00 dose, On Medica l 100 mL [facility] 05/07/21 at 2115, Routine iopamidol 2020- No [id number] 100mL 100 mL, Univers (ISOVUE 05-08 Intravenou ity o f 370-500 mL) 02:15: 01:08 s, ONCE, 1 [place] injection 00 :00 dose, On Medica l 100 mL [facility] 05/07/21 at 2115, Routine morpHINE 2020- No 4mg 4 mg, Slow Un piyush injection 4 05-08 IV Push, ity of mg 01:45: 00:48 ONCE, 1 [place] 00 :00 dose, On [facility] 05/07/21 at 2045, JOÃO ondansetron 2020- No 4mg 4 mg, Slow Univers (ZOFRAN 05-08 IV Push, ity of (PF)) 01:45: 00:47 ONCE, 1 [place] injection 4 00 :00 dose, On Medi mariusz mg [facility] Branch 05/07/21 at 2045, JOÃO morpHINE 2020- No 4mg 4 mg, Slow Un piyush injection 4 05-08 IV Push, ity of mg 01:45: 00:48 ONCE, 1 [place] 00 :00 dose, On Medical Tue Branch 05/07/21 at 2045, JOÃO ondansetron 2020- No 4mg 4 mg, Slow Univers (ZOFRAN 05-0815 IV Push, ity of (PF)) 01:45: 00:47 ONCE, 1 [place] injection 4 00 :00 dose, On Medi mariusz mg Tue Branch 05/07/21 at 2045, JOÃO flu vaccine 2020- No .5mL 0.5 mL, Un piyush 6 months 08-24 Intramuscu ity of and up (PF) 17:30: 18:09 lar, ONCE, [place] (FLUZONE 00 :00 1 dose, Medical QUAD 08/24/20 Branch at 1130, (PF)) Routine syringe 0.5 mL sulfamethox 2020- No 1{tbl} 1 tablet, [facility] azole-trime 08-24 Oral, BID, i ty of thoprim 02:00: 13:59 7 doses, [place] (BACTRIM 00 :00 First dose Medic al DS) 800-160 on [place] Branch mg per 08/23/20 tablet 1 at 1999, tablet Last dose on 08/26/20 at 1999, JOÃO
Re ason for Anti-Infec tive: Empiric Therapy for Suspected Infection< br>Empiric Therapy Site: Skin / Soft tissue
Duration of therapy: 72 hours sulfamethox 2020- No [id number] 1{tbl} Take 1 [facility] azole-trime 08-24 tablet by it y of thoprim 00:00: 05:59 mouth 2 [place] 800-160 mg 00 :00 (two) Medical per tablet times Branch daily for 7 days. enoxaparin 2019-08 Yes 40mg 40 mg, Unive rs (LOVENOX) 2 Subcutaneo ity of injection 21:30: us, Q24H, [...] 14:00: First dose [place] SINGLES) 00 on [facility] Medical 3.4 gram 08/23/20 Branch packet 3 at 0800, Packet Until Discontinu ed, Routine heparin 2019-08 2020- No 5000U 5,000 Univers (porcine) 2-31 08-23 Units, ity of injection 14:00: 20:18 [...] f tablet 6 mg 03:12: - SEE [place] [address] [facility] Medical NS, 1 Branch dose, Starting 08/22/20 [...] IV Push, ity of (PF)) 03:12: Q6HPRN, [place] injection 4 08 Starting Medi mariusz mg Wed Branch 08/22/20 at 2112, Until Discontinu ed, Routine, Nausea and Vomiting (N/V) acetaminoph 2019-08 Yes 650mg 650 mg, Un piyush en 2-31 Oral, ity of (TYLENOL) 03:11: Q6HPRN, [place] tablet 650 56 Starting Medic al mg [...] of 1,000 mg in 23:30: 00:58 Piggyback, [place] NaCl 0.9% 00 :00 ONCE, 1 Medical [...] 07/09/20 at 1645, JOÃO amoxicillin 2019-08 Yes [id number] 1{tbl} Take 1 Univers -clavulanat 1-16 tablet by ity of e 875-125 00:00: mouth [place] mg per 00 every 12 Medical tablet (twelve) Branch hours. amoxicillin 2019-08- No [id number] 1{tbl} Take 1 Univers -clavulanat 1-16 08-24 [...] dose, 06/05/20 at 0700, JOÃO levoFLOXaci 2019-08 No 750mg 750 mg, U nivers n 0-08 10-08 Oral, Q24H ity of (LEVAQUIN) 04:30: 04:35 ABX, 1 [place] tablet 750 00 :00 dose, Medical mg First dose Branch (after last modificati on) on Thu05/30/20 at 2330, JOÃO
Re ason for Anti-Infec tive: Documented Infection< br>Documen dain Infection Site: Abdominal& lt;br>Dura tion of Therapy: 7 days ibuprofen 2019-08 Yes [id number] 800mg Take 1 U nivers 800 mg 0-08 tablet by ity of tablet 00:00: mouth [place] 00 every 6 Medical (six) Branch hours as needed for Pain (scale 4-6). loperamide 2019-08 Yes [id number] 4mg Take 2 U nivers 2 mg 0-08 capsules ity of capsule 00:00: by mouth 4 [place] 00 (four) Medical times Branch daily. diphenoxyla 2019-08 Yes [id number] 1{tbl} Take 1 Univers te-atropine 0-08 tablet by ity of 2.5-0.025 00:00: mouth [place] mg tablet 00 every 8 Medical (eight) Branch hours. psyllium 2019-08 Yes [id number] 3{packe Take 3 Univers 3.4 gram 0-08 t} Packets by ity o f packet 00:00: mouth 3 [place] 00 (three) Medical times Branch daily. psyllium 2019-08 Yes [id number] 3{packe Take 3 Univers 3.4 gram 0-08 t} Packets by ity o f packet 00:00: mouth 3 [place] 00 (three) Medical times Branch daily. diphenoxyla 2020-1 Yes [id number] 1{tbl} Take 1 Univers te-atropine 0-08 tablet by ity of 2.5-0.025 00:00: mouth [place] mg tablet 00 every 8 Medical (eight) Branch hours. loperamide 2020- Yes [id number] 4mg Take 2 U nivers 2 mg 0-08 capsules ity of capsule 00:00: by mouth 4 [place] 00 (four) Medical times Branch daily. ibuprofen 2020- Yes [id number] 800mg Take 1 U nivers 800 mg 0-08 tablet by ity of tablet 00:00: mouth [place] 00 every 6 Medical (six) Branch hours as needed for Pain (scale 4-6). psyllium 2020-1 Yes [id number] 3{packe Take 3 Univers 3.4 gram 0-08 t} Packets by ity o f packet 00:00: mouth 3 [place] 00 (three) Medical times Branch daily. diphenoxyla 2020- Yes [id number] 1{tbl} Take 1 Univers te-atropine 0-08 tablet by ity of 2.5-0.025 00:00: mouth [place] mg tablet 00 every 8 Medical (eight) Branch hours. loperamide 2020-1 Yes [id number] 4mg Take 2 U nivers 2 mg 0-08 capsules ity of capsule 00:00: by mouth 4 [place] 00 (four) Medical times Branch daily. ibuprofen 2020- Yes [id number] 800mg Take 1 U nivers 800 mg 0-08 tablet by ity of tablet 00:00: mouth [place] 00 every 6 Medical (six) Branch hours as needed for Pain (scale 4-6). psyllium 2020-1 Yes [id number] 3{packe Take 3 Univers 3.4 gram 0-08 t} Packets by ity o f packet 00:00: mouth 3 [place] 00 (three) Medical times Branch daily. diphenoxyla 2020- Yes [id number] 1{tbl} Take 1 Univers te-atropine 0-08 tablet by ity of 2.5-0.025 00:00: mouth [place] mg tablet 00 every 8 Medical (eight) Branch hours. loperamide 2020-1 Yes [id number] 4mg Take 2 U nivers 2 mg 0-08 capsules ity of capsule 00:00: by mouth 4 [place] 00 (four) Medical times Branch daily. ibuprofen 2020-1 Yes [id number] 800mg Take 1 U nivers 800 mg 0-08 tablet by ity of tablet 00:00: mouth [place] 00 every 6 Medical (six) Branch hours as needed for Pain (scale 4-6). psyllium 2020-1 Yes [id number] 3{packe Take 3 Univers 3.4 gram 0-08 t} Packets by ity o f packet 00:00: mouth 3 [place] 00 (three) Medical times Branch daily. diphenoxyla 2020-1 Yes [id number] 1{tbl} Take 1 Univers te-atropine 0-08 tablet by ity of 2.5-0.025 00:00: mouth [place] mg tablet 00 every 8 Medical (eight) Branch hours. loperamide 2020-1 Yes [id number] 4mg Take 2 U nivers 2 mg 0-08 capsules ity of capsule 00:00: by mouth 4 [place] 00 (four) Medical times Branch daily. ibuprofen 2020-1 Yes [id number] 800mg Take 1 U nivers 800 mg 0-08 tablet by ity of tablet 00:00: mouth [place] 00 every 6 Medical (six) Branch hours as needed for Pain (scale 4-6). psyllium 2020-1 Yes [id number] 3{packe Take 3 Univers 3.4 gram 0-08 t} Packets by ity o f packet 00:00: mouth 3 [place] 00 (three) Medical times Branch daily. diphenoxyla 2020-1 Yes [id number] 1{tbl} Take 1 Univers te-atropine 0-08 tablet by ity of 2.5-0.025 00:00: mouth [place] mg tablet 00 every 8 Medical (eight) Branch hours. loperamide 2020-1 Yes [id number] 4mg Take 2 U nivers 2 mg 0-08 capsules ity of capsule 00:00: by mouth 4 [place] 00 (four) Medical times Branch daily. ibuprofen 2020-1 Yes [id number] 800mg Take 1 U nivers 800 mg 0-08 tablet by ity of tablet 00:00: mouth [place] 00 every 6 Medical (six) Branch hours as needed for Pain (scale 4-6). psyllium 2020-1 Yes [id number] 3{packe Take 3 Univers 3.4 gram 0-08 t} Packets by ity o f packet 00:00: mouth 3 [place] 00 (three) Medical times Branch daily. diphenoxyla 2020-1 Yes [id number] 1{tbl} Take 1 Univers te-atropine 0-08 tablet by ity of 2.5-0.025 00:00: mouth [place] mg tablet 00 every 8 Medical (eight) Branch hours. loperamide 2020- Yes [id number] 4mg Take 2 U nivers 2 mg 0-08 capsules ity of capsule 00:00: by mouth 4 [place] 00 (four) Medical times Branch daily. ibuprofen 2020- Yes [id number] 800mg Take 1 U nivers 800 mg 0-08 tablet by ity of tablet 00:00: mouth [place] 00 every 6 Medical (six) Branch hours as needed for Pain (scale 4-6). psyllium 2020- Yes [id number] 3{packe Take 3 [facility] 3.4 gram 0-08 t} Packets by ity o f packet 00:00: mouth 3 [place] 00 (three) Medical times Branch daily. diphenoxyla 2020- Yes [id number] 1{tbl} Take 1 Univers te-atropine 0-08 tablet by ity of 2.5-0.025 00:00: mouth [place] mg tablet 00 every 8 Medical (eight) Branch hours. loperamide 2020- Yes [id number] 4mg Take 2 U nivers 2 mg 0-08 capsules ity of capsule 00:00: by mouth 4 [place] 00 (four) Medical times Branch daily. ibuprofen 2020-1 Yes [id number] 800mg Take 1 U nivers 800 mg 0-08 tablet by ity of tablet 00:00: mouth [place] 00 every 6 Medical (six) Branch hours as needed for Pain (scale 4-6). psyllium 2020-1 Yes [id number] 3{packe Take 3 [facility] 3.4 gram 0-08 t} Packets by ity o f packet 00:00: mouth 3 [place] 00 (three) Medical times Branch daily. diphenoxyla 2020- Yes [id number] 1{tbl} Take 1 Univers te-atropine 0-08 tablet by ity of 2.5-0.025 00:00: mouth [place] mg tablet 00 every 8 Medical (eight) Branch hours. loperamide 2020-1 Yes [id number] 4mg Take 2 U nivers 2 mg 0-08 capsules ity of capsule 00:00: by mouth 4 [place] 00 (four) Medical times Branch daily. ibuprofen 2020-1 Yes [id number] 800mg Take 1 U nivers 800 mg 0-08 tablet by ity of tablet 00:00: mouth [place] 00 every 6 Medical (six) Branch hours as needed for Pain (scale 4-6). psyllium 2020-1 Yes [id number] 3{packe Take 3 Univers 3.4 gram 0-08 t} Packets by ity o f packet 00:00: mouth 3 [place] 00 (three) Medical times Branch daily. diphenoxyla 2020-1 Yes [id number] 1{tbl} Take 1 Univers te-atropine 0-08 tablet by ity of 2.5-0.025 00:00: mouth [place] mg tablet 00 every 8 Medical (eight) Branch hours. loperamide 2020-1 Yes [id number] 4mg Take 2 U nivers 2 mg 0-08 capsules ity of capsule 00:00: by mouth 4 [place] 00 (four) Medical times Branch daily. ibuprofen 2020-1 Yes [id number] 800mg Take 1 U nivers 800 mg 0-08 tablet by ity of tablet 00:00: mouth [place] 00 every 6 Medical (six) Branch hours as needed for Pain (scale 4-6). psyllium 2020-1 Yes [id number] 3{packe Take 3 Univers 3.4 gram 0-08 t} Packets by ity o f packet 00:00: mouth 3 [place] 00 (three) Medical times Branch daily. diphenoxyla 2020-1 Yes [id number] 1{tbl} Take 1 Univers te-atropine 0-08 tablet by ity of 2.5-0.025 00:00: mouth [place] mg tablet 00 every 8 Medical (eight) Branch hours. loperamide 2020-1 Yes [id number] 4mg Take 2 U nivers 2 mg 0-08 capsules ity of capsule 00:00: by mouth 4 [place] 00 (four) Medical times Branch daily. ibuprofen 2020-1 Yes [id number] 800mg Take 1 U nivers 800 mg 0-08 tablet by ity of tablet 00:00: mouth [place] 00 every 6 Medical (six) Branch hours as needed for Pain (scale 4-6). psyllium 2020-1 Yes [id number] 3{packe Take 3 Univers 3.4 gram 0-08 t} Packets by ity o f packet 00:00: mouth 3 [place] 00 (three) Medical times Branch daily. diphenoxyla 2020-1 Yes [id number] 1{tbl} Take 1 Univers te-atropine 0-08 tablet by ity of 2.5-0.025 00:00: mouth [place] mg tablet 00 every 8 Medical (eight) Branch hours. loperamide 2020- Yes [id number] 4mg Take 2 U nivers 2 mg 0-08 capsules ity of capsule 00:00: by mouth 4 [place] 00 (four) Medical times Branch daily. ibuprofen 2020- Yes [id number] 800mg Take 1 U nivers 800 mg 0-08 tablet by ity of tablet 00:00: mouth [place] 00 every 6 Medical (six) Branch hours as needed for Pain (scale 4-6). psyllium 2020-1 Yes [id number] 3{packe Take 3 Univers 3.4 gram 0-08 t} Packets by ity o f packet 00:00: mouth 3 [place] 00 (three) Medical times Branch daily. diphenoxyla 2020-1 Yes [id number] 1{tbl} Take 1 Univers te-atropine 0-08 tablet by ity of 2.5-0.025 00:00: mouth [place] mg tablet 00 every 8 Medical (eight) Branch hours. loperamide 2020-1 Yes [id number] 4mg Take 2 U nivers 2 mg 0-08 capsules ity of capsule 00:00: by mouth 4 [place] 00 (four) Medical times Branch daily. ibuprofen 2020-1 Yes [id number] 800mg Take 1 U nivers 800 mg 0-08 tablet by ity of tablet 00:00: mouth [place] 00 every 6 Medical (six) Branch hours as needed for Pain (scale 4-6). psyllium 2020-1 Yes [id number] 3{packe Take 3 Univers 3.4 gram 0-08 t} Packets by ity o f packet 00:00: mouth 3 [place] 00 (three) Medical times Branch daily. diphenoxyla 2020-1 Yes [id number] 1{tbl} Take 1 Univers te-atropine 0-08 tablet by ity of 2.5-0.025 00:00: mouth [place] mg tablet 00 every 8 Medical (eight) Branch hours. loperamide 2019-08 Yes [id number] 4mg Take 2 U nivers 2 mg 0-08 capsules ity of capsule 00:00: by mouth 4 [place] 00 (four) Medical times Branch daily. ibuprofen 2019-08 Yes [id number] 800mg Take 1 U nivers 800 mg 0-08 tablet by ity of tablet 00:00: mouth [place] 00 every 6 Medical (six) Branch hours as needed for Pain (scale 4-6). acetaminoph 2019-08- No [id number] 650mg Take 2 Univers en 325 mg 0-08 10-09 tablets by ity of tablet 00:00: 04:59 mouth [place] 00 :00 every 6 Medical (six) Branch hours as needed for Pain (scale 1-3). acetaminoph 2019-08- No [id number] 650mg Take 2 Univers en 325 mg 0-08 10-09 tablets by ity of tablet 00:00: 04:59 mouth [place] 00 :00 every 6 Medical (six) Branch hours as needed for Pain (scale 1-3). acetaminoph 2019-08- No [id number] 650mg Take 2 Univers en 325 mg 0-08 10-09 tablets by ity of tablet 00:00: 04:59 mouth [place] 00 :00 every 6 Medical (six) Branch hours as needed for Pain (scale 1-3). acetaminoph 2019-08- No [id number] 650mg Take 2 Univers en 325 mg 0-08 10-09 tablets by ity of tablet 00:00: 04:59 mouth [place] 00 :00 every 6 Medical (six) Branch hours as needed for Pain (scale 1-3). acetaminoph 2019-08- No [id number] 650mg Take 2 Univers en 325 mg 0-08 10-09 tablets by ity of tablet 00:00: 04:59 mouth [place] 00 :00 every 6 Medical (six) Branch hours as needed for Pain (scale 1-3). acetaminoph 2019-08- No [id number] 650mg Take 2 Univers en 325 mg 0-08 10-09 tablets by ity of tablet 00:00: 04:59 mouth [place] 00 :00 every 6 Medical (six) Branch hours as needed for Pain (scale 1-3). acetaminoph 2019-08 No [id number] 650mg Take 2 Univers en 325 mg 0-08 10-09 tablets by ity of tablet 00:00: 04:59 mouth [place] 00 :00 every 6 Medical (six) Branch hours as needed for Pain (scale 1-3). acetaminoph 2019-08 No [id number] 650mg Take 2 Univers en 325 mg 0-08 10-09 tablets by ity of tablet 00:00: 04:59 mouth [place] 00 :00 every 6 Medical (six) Branch hours as needed for Pain (scale 1-3). acetaminoph 2019-08 No [id number] 650mg Take 2 Univers en 325 mg 0-08 10-09 tablets by ity of tablet 00:00: 04:59 mouth [place] 00 :00 every 6 Medical (six) Branch hours as needed for Pain (scale 1-3). acetaminoph 2019-08 No [id number] 650mg Take 2 Univers en 325 mg 0-08 10-09 tablets by ity of tablet 00:00: 04:59 mouth [place] 00 :00 every 6 Medical (six) Branch hours as needed for Pain (scale 1-3). acetaminoph 2019-08 No [id number] 650mg Take 2 Univers en 325 mg 0-08 10-09 tablets by ity of tablet 00:00: 04:59 mouth [place] 00 :00 every 6 Medical (six) Branch hours as needed for Pain (scale 1-3). acetaminoph 2019-08 No [id number] 650mg Take 2 Univers en 325 mg 0-08 10-09 tablets by ity of tablet 00:00: 04:59 mouth [place] 00 :00 every 6 Medical (six) Branch hours as needed for Pain (scale 1-3). acetaminoph 2019-08- No [id number] 650mg Take 2 Univers en 325 mg 0-08 10-09 tablets by ity of tablet 00:00: 04:59 mouth [place] 00 :00 every 6 Medical (six) Branch hours as needed for Pain (scale 1-3). acetaminoph 2019-08 No [id number] 650mg Take 2 Univers en 325 mg 0-08 10-09 tablets by ity of tablet 00:00: 04:59 mouth [place] 00 :00 every 6 Medical (six) Branch hours as needed for Pain (scale 1-3). psyllium 2019-08 No [id number] 3{packe Take 3 Univers 3.4 gram 0-08 09-16 t} Packets by ity of packet 00:00: 00:00 mouth 3 [place] 00 :00 (three) Medical times Branch daily. diphenoxyla 2019-08 No [id number] 1{tbl} Take 1 Univers te-atropine 0-08 09-16 tablet by it y of 2.5-0.025 00:00: 00:00 mouth [place] mg tablet 00 :00 every 8 Medical (eight) Branch hours. loperamide 2019-08 No [id number] 4mg Take 2 Univers 2 mg 0-08 09-16 capsules ity of capsule 00:00: 00:00 by mouth 4 [place] 00 :00 (four) Medical times Branch daily. ibuprofen 2019-08 No [id number] 800mg Take 1 [facility] 800 mg 0-08 09-16 tablet by ity of tablet 00:00: 00:00 mouth [place] 00 :00 every 6 Medical (six) Branch hours as needed for Pain (scale 4-6). acetaminoph 2019-08 No [id number] 650mg Take 2 Univers en 325 mg 0-08 09-16 tablets by ity of tablet 00:00: 00:00 mouth [place] 00 :00 every 6 Medical (six) Branch hours as needed for Pain (scale 1-3). psyllium 2019-08 No [id number] 3{packe Take 3 Univers 3.4 gram 0-08 09-16 t} Packets by ity of packet 00:00: 00:00 mouth 3 [place] 00 :00 (three) Medical times Branch daily. diphenoxyla 2019-08 No [id number] 1{tbl} Take 1 [facility] te-atropine 0-08 09-16 tablet by it y of 2.5-0.025 00:00: 00:00 mouth [place] mg tablet 00 :00 every 8 Medical (eight) Branch hours. loperamide 2019-08 No [id number] 4mg Take 2 [facility] 2 mg 0-08 09-16 capsules ity of capsule 00:00: 00:00 by mouth 4 [place] 00 :00 (four) Medical times Branch daily. ibuprofen 2019-08 No [id number] 800mg Take 1 [facility] 800 mg 0-08 09-16 tablet by ity of tablet 00:00: 00:00 mouth [place] 00 :00 every 6 Medical (six) Branch hours as needed for Pain (scale 4-6). acetaminoph 2019-08 No [id number] 650mg Take 2 [facility] en 325 mg 0-08 09-16 tablets by ity of tablet 00:00: 00:00 mouth [place] 00 :00 every 6 Medical (six) Branch hours as needed for Pain (scale 1-3). acetaminoph 2019-08 No [id number] 650mg Take 2 [facility] en 325 mg 0-08 10-08 tablets by ity of tablet 00:00: 00:00 mouth [place] 00 :00 every 6 Medical (six) Branch hours as needed for Pain (scale 1-3). ibuprofen 2019-08 No [id number] 800mg Take 1 [facility] 800 mg 0-08 10-08 tablet by ity of tablet 00:00: 00:00 mouth [place] 00 :00 every 6 Medical (six) Branch hours as needed for Pain (scale 4-6). loperamide 2019-08 No [id number] 4mg Take 2 [facility] 2 mg 0-08 10-08 capsules ity of capsule 00:00: 00:00 by mouth 4 [place] 00 :00 (four) Medical times Branch daily. diphenoxyla 2019-08- No [id number] 1{tbl} Take 1 [facility] te-atropine 0-08 10-08 tablet by it y of 2.5-0.025 00:00: 00:00 mouth [place] mg tablet 00 :00 every 8 Medical (eight) Branch hours. psyllium 2019-08- No [id number] 3{packe Take 3 Univers 3.4 gram 0-08 [...] e Medical mg tablet 1 05/29/20 at Br [...] Mon Medi mariusz (4 %) 05/28/20 at [place] infusion 2 0830, g Routine loperamide 2019- [...] 2 g, IV Univ ers sulfate in 005-27 Piggyback, it y of water 2 13:00: [...] Medical mg last Branch modificati on) on 05/25/20 at 2000, Until Discontinu ed, Routine lactated 2019-08 2020- No 1000mL at 999 Univ ers ringers IV 0-02 10-03 mL/hr, ity of infusion 20:08: 01:57 1,000 mL, [place] 1,000 mL 00 :00 Intravenou Medic al s, ONCE, 1 Branch dose, Thu05/25/20 at 1515, Routine magnesium 2019-08 2020- No 4g 4 g, IV Univ ers sulfate in 005-24 [place]gyback, it y of water 4 22:15: 22:07 ONCE, 1 [place] gram/50 mL 00 :00 dose, [place] Medi mariusz (8 %) IV 05/24/20 at [facility] h Piggyback 4 1715, g [...] dose, Thu Medica l mL) 05/23/20 at [place] injection 1015, 100 mL Routine docusate 2019- [...] Medic al mg Minutes, Branch Q8HPRN, Starting Tu 05/22/20 at 2215, Until Discontinu ed, Routine, Nausea and Vomiting (N/V) D5W 0.45% 2020-0 Yes IV Univers NaCl 05-23 Infusion, ity of (1/2NS) 1 L 03:15: at 50 [place] + KCL 20 00 mL/hr, [facility] mEq CONTINUOUS Branch , Starting [facility] 05/22/20 at 2230, Until Discontinu ed, Routine ibuprofen 2020-0 Yes 800mg 800 mg, Univ ers (IBU) 05-23 Oral, ity of tablet 800 03:13: Q6HPRN, [place] mg 38 Starting Medical [facility] Branch 05/22/20 at 2213, Until Discontinu ed, Routine, Pain (scale 4-6) acetaminoph 2020-0 Yes 650mg 650 mg, Un piyush en 05-23 Oral, ity of (TYLENOL) 03:13: Q6HPRN, [place] tablet 650 36 Starting Medic al mg [facility] 05/22/20 at 2213, Until Discontinu ed, Routine, Pain (scale 1-3) morpHINE 2020-0 2020- No 4mg 4 mg, Slow Un piyush injection 4 05-22 IV Push, ity of mg 03:30: 03:13 ONCE, 1 [place] 00 :00 dose, [facility] 05/21/20 at Branch 2230, STAT piperacilli 2020-0 [...] 1,000 mL 00 :00 [facility] ONCE, 1 dose, 05/19/20 at 2245, STAT ibuprofen 2020-0 Yes [id number] 800mg Take 1 U nivers 800 mg 9-18 tablet by ity of tablet 00:00: mouth [place] 00 every 6 Medical (six) Branch hours as needed for Pain (scale 4-6). levoFLOXaci 2020-0 Yes [id number] 750mg Take 1 Univers n 750 mg 9-18 tablet by ity of tablet 00:00: mouth [place] 00 every 24 Medical (twenty-fo Branch ur) hours. loperamide 2020-0 Yes [id number] 2mg Take 1 U nivers 2 mg 9-18 capsule by ity of capsule 00:00: mouth [place] 00 daily. Medical Branch ibuprofen 2020-0 Yes [id number] 800mg Take 1 U nivers 800 mg 9-18 tablet by ity of tablet 00:00: mouth [place] 00 every 6 Medical (six) Branch hours as needed for Pain (scale 4-6). levoFLOXaci 2020-0 Yes [id number] 750mg Take 1 Univers n 750 mg 9-18 tablet by ity of tablet 00:00: mouth [place] 00 every 24 Medical (twenty-fo Branch ur) hours. loperamide 2020-0 Yes [id number] 2mg Take 1 U nivers 2 mg 9-18 capsule by ity of capsule 00:00: mouth [place] 00 daily. Medical Branch ibuprofen 2020-0 Yes [id number] 800mg Take 1 U nivers 800 mg 9-18 tablet by ity of tablet 00:00: mouth [place] 00 every 6 Medical (six) Branch hours as needed for Pain (scale 4-6). levoFLOXaci 2020-0 Yes [id number] 750mg Take 1 [facility] n 750 mg 9-18 tablet by ity of tablet 00:00: mouth [place] 00 every 24 Medical (twenty-fo Branch ur) hours. loperamide 2020-0 Yes [id number] 2mg Take 1 U nivers 2 mg 9-18 capsule by ity of capsule 00:00: mouth [place] 00 daily. Medical Branch ibuprofen 2020-0 Yes [id number] 800mg Take 1 U nivers 800 mg 9-18 tablet by ity of tablet 00:00: mouth [place] 00 every 6 Medical (six) Branch hours as needed for Pain (scale 4-6). levoFLOXaci 2020-0 Yes [id number] 750mg Take 1 [facility] n 750 mg 9-18 tablet by ity of tablet 00:00: mouth [place] 00 every 24 Medical (twenty-fo Branch ur) hours. loperamide 2020-0 Yes [id number] 2mg Take 1 U nivers 2 mg 9-18 capsule by ity of capsule 00:00: mouth [place] 00 daily. Medical Branch ibuprofen 2020-0 Yes [id number] 800mg Take 1 U nivers 800 mg 9-18 tablet by ity of tablet 00:00: mouth [place] 00 every 6 Medical (six) Branch hours as needed for Pain (scale 4-6). levoFLOXaci 2020-0 Yes [id number] 750mg Take 1 [facility] n 750 mg 9-18 tablet by ity of tablet 00:00: mouth [place] 00 every 24 Medical (twenty-fo Branch ur) hours. loperamide 2020-0 Yes [id number] 2mg Take 1 U nivers 2 mg 9-18 capsule by ity of capsule 00:00: mouth [place] 00 daily. Medical Branch ibuprofen 2020-0 Yes [id number] 800mg Take 1 U nivers 800 mg 9-18 tablet by ity of tablet 00:00: mouth [place] 00 every 6 Medical (six) Branch hours as needed for Pain (scale 4-6). levoFLOXaci 2020-0 Yes [id number] 750mg Take 1 [facility] n 750 mg 9-18 tablet by ity of tablet 00:00: mouth [place] 00 every 24 Medical (twenty-fo Branch ur) hours. loperamide 2020-0 Yes [id number] 2mg Take 1 U nivers 2 mg 9-18 capsule by ity of capsule 00:00: mouth [place] 00 daily. Medical Branch ibuprofen 2020-0 Yes [id number] 800mg Take 1 U nivers 800 mg 9-18 tablet by ity of tablet 00:00: mouth [place] 00 every 6 Medical (six) Branch hours as needed for Pain (scale 4-6). levoFLOXaci 2020-0 Yes [id number] 750mg Take 1 [facility] n 750 mg 9-18 tablet by ity of tablet 00:00: mouth [place] 00 every 24 Medical (twenty-fo Branch ur) hours. loperamide 2020-0 Yes [id number] 2mg Take 1 U nivers 2 mg 9-18 capsule by ity of capsule 00:00: mouth [place] 00 daily. Medical Branch ibuprofen 2020-0 Yes [id number] 800mg Take 1 U nivers 800 mg 9-18 tablet by ity of tablet 00:00: mouth [place] 00 every 6 Medical (six) Branch hours as needed for Pain (scale 4-6). levoFLOXaci 2020-0 Yes [id number] 750mg Take 1 Univers n 750 mg 9-18 tablet by ity of tablet 00:00: mouth [place] 00 every 24 Medical (twenty-fo Branch ur) hours. loperamide 2020-0 Yes [id number] 2mg Take 1 U nivers 2 mg 9-18 capsule by ity of capsule 00:00: mouth [place] 00 daily. Medical Branch ibuprofen 2020-0 Yes [id number] 800mg Take 1 U nivers 800 mg 9-18 tablet by ity of tablet 00:00: mouth [place] 00 every 6 Medical (six) Branch hours as needed for Pain (scale 4-6). levoFLOXaci 2020-0 Yes [id number] 750mg Take 1 [facility] n 750 mg 9-18 tablet by ity of tablet 00:00: mouth [place] 00 every 24 Medical (twenty-fo Branch ur) hours. loperamide 2020-0 Yes [id number] 2mg Take 1 U nivers 2 mg 9-18 capsule by ity of capsule 00:00: mouth [place] 00 daily. Medical Branch ibuprofen 2020-0 Yes [id number] 800mg Take 1 U nivers 800 mg 9-18 tablet by ity of tablet 00:00: mouth [place] 00 every 6 Medical (six) Branch hours as needed for Pain (scale 4-6). levoFLOXaci 2020-0 Yes [id number] 750mg Take 1 Univers n 750 mg 9-18 tablet by ity of tablet 00:00: mouth [place] 00 every 24 Medical (twenty-fo Branch ur) hours. loperamide 2020-0 Yes [id number] 2mg Take 1 U nivers 2 mg 9-18 capsule by ity of capsule 00:00: mouth [place] 00 daily. Medical Branch ibuprofen 2020-0 Yes [id number] 800mg Take 1 U nivers 800 mg 9-18 tablet by ity of tablet 00:00: mouth [place] 00 every 6 Medical (six) Branch hours as needed for Pain (scale 4-6). levoFLOXaci 2020-0 Yes [id number] 750mg Take 1 [facility] n 750 mg 9-18 tablet by ity of tablet 00:00: mouth [place] 00 every 24 Medical (twenty-fo Branch ur) hours. loperamide 2020-0 Yes [id number] 2mg Take 1 U nivers 2 mg 9-18 capsule by ity of capsule 00:00: mouth [place] 00 daily. Medical Branch ibuprofen 2020-0 Yes [id number] 800mg Take 1 U nivers 800 mg 9-18 tablet by ity of tablet 00:00: mouth [place] 00 every 6 Medical (six) Branch hours as needed for Pain (scale 4-6). levoFLOXaci 2020-0 Yes [id number] 750mg Take 1 [facility] n 750 mg 9-18 tablet by ity of tablet 00:00: mouth [place] 00 every 24 Medical (twenty-fo Branch ur) hours. loperamide 2020-0 Yes [id number] 2mg Take 1 U nivers 2 mg 9-18 capsule by ity of capsule 00:00: mouth [place] 00 daily. Medical Branch ibuprofen 2020-0 Yes [id number] 800mg Take 1 U nivers 800 mg 9-18 tablet by ity of tablet 00:00: mouth [place] 00 every 6 Medical (six) Branch hours as needed for Pain (scale 4-6). levoFLOXaci 2020-0 Yes [id number] 750mg Take 1 [facility] n 750 mg 9-18 tablet by ity of tablet 00:00: mouth [place] 00 every 24 Medical (twenty-fo Branch ur) hours. loperamide 2020-0 Yes [id number] 2mg Take 1 U nivers 2 mg 9-18 capsule by ity of capsule 00:00: mouth [place] 00 daily. Medical Branch acetaminoph 2020- No [id number] 650mg Take 2 Univers en 325 mg 9-18 09-19 tablets by ity of tablet 00:00: 04:59 mouth [place] 00 :00 every 6 Medical (six) Branch hours as needed for Pain (scale 1-3). acetaminoph 2020- No [id number] 650mg Take 2 Univers en 325 mg 9-18 09-19 tablets by ity of tablet 00:00: 04:59 mouth [place] 00 :00 every 6 Medical (six) Branch hours as needed for Pain (scale 1-3). acetaminoph 2020- No [id number] 650mg Take 2 Univers en 325 mg 9-18 09-19 tablets by ity of tablet 00:00: 04:59 mouth [place] 00 :00 every 6 Medical (six) Branch hours as needed for Pain (scale 1-3). acetaminoph 2020- No [id number] 650mg Take 2 Univers en 325 mg 9-18 09-19 tablets by ity of tablet 00:00: 04:59 mouth [place] 00 :00 every 6 Medical (six) Branch hours as needed for Pain (scale 1-3). acetaminoph 2020- No [id number] 650mg Take 2 Univers en 325 mg 9-18 09-19 tablets by ity of tablet 00:00: 04:59 mouth [place] 00 :00 every 6 Medical (six) Branch hours as needed for Pain (scale 1-3). acetaminoph 2020- No [id number] 650mg Take 2 Univers en 325 mg 9-18 09-19 tablets by ity of tablet 00:00: 04:59 mouth [place] 00 :00 every 6 Medical (six) Branch hours as needed for Pain (scale 1-3). acetaminoph 2020- No [id number] 650mg Take 2 Univers en 325 mg 9-18 09-19 tablets by ity of tablet 00:00: 04:59 mouth [place] 00 :00 every 6 Medical (six) Branch hours as needed for Pain (scale 1-3). acetaminoph [id number] 650mg Take 2 Univers en 325 mg 9-18 09-19 tablets by ity of tablet 00:00: 04:59 mouth [place] 00 :00 every 6 Medical (six) Branch hours as needed for Pain (scale 1-3). acetaminoph [id number] 650mg Take 2 Univers en 325 mg 9-18 09-19 tablets by ity of tablet 00:00: 04:59 mouth [place] 00 :00 every 6 Medical (six) Branch hours as needed for Pain (scale 1-3). acetaminoph [id number] 650mg Take 2 Univers en 325 mg 9-18 09-19 tablets by ity of tablet 00:00: 04:59 mouth [place] 00 :00 every 6 Medical (six) Branch hours as needed for Pain (scale 1-3). acetaminoph [id number] 650mg Take 2 Univers en 325 mg 9-18 09-19 tablets by ity of tablet 00:00: 04:59 mouth [place] 00 :00 every 6 Medical (six) Branch hours as needed for Pain (scale 1-3). acetaminoph [id number] 650mg Take 2 Univers en 325 mg 9-18 09-19 tablets by ity of tablet 00:00: 04:59 mouth [place] 00 :00 every 6 Medical (six) Branch hours as needed for Pain (scale 1-3). acetaminoph No [id number] 650mg Take 2 Univers en 325 mg 9-18 09-19 tablets by ity of tablet 00:00: 04:59 mouth [place] 00 :00 every 6 Medical (six) Branch hours as needed for Pain (scale 1-3). acetaminoph [id number] 650mg Take 2 Univers en 325 mg 9-18 10-08 tablets by ity of tablet 00:00: 00:00 mouth [place] 00 :00 every 6 Medical (six) Branch hours as needed for Pain (scale 1-3). ibuprofen [id number] 800mg Take 1 Univers 800 mg 9-18 10-08 tablet by ity of tablet 00:00: 00:00 mouth [place] 00 :00 every 6 Medical (six) Branch hours as needed for Pain (scale 4-6). levoFLOXaci 2019-2019- No [id number] 750mg Take 1 Univers n 750 mg 9-18 10-08 tablet by ity o f tablet 00:00: 00:00 mouth [place] 00 :00 every 24 Medical (twenty-fo Branch ur) hours. loperamide 2019- No [id number] 2mg Take 1 Univers 2 mg -18 10-08 capsule by ity of capsule 00:00: [...] br>Duratio n of Therapy: 14 days metroNIDAZO No 500mg 500 mg, U nivers LE (FLAGYL) 05-09 Oral, Q8H it y of tablet 500 21:30: 13:14 ABX, First [place] mg 00 :28 dose on Medical Wed Branch 05/09/20 at 1630, Until Discontinu ed, Routine
Reason for Anti-Infec tive: Documented Infection< br>Documen dain Infection Site: Abdominal< br>Duratio n of Therapy: 14 days magnesium 2019- No 4g 4 g, IV [...] Branch 2000, Until Discontinu ed, Routine lactated 2019- No 1000mL at 999 [facility] ers ringers IV 05-07 mL/hr, ity of infusion 22:15: 22:21 1,000 mL, [place] 1,000 mL 00 :00 Intravenou Medic al s, ONCE, 1 Branch dose, [facility] 05/07/20 at 1715, Routine lactated 2020-0 2020- No 1000mL at 999 [facility] ers ringers IV 05-07 mL/hr, ity of infusion 13:15: 14:09 1,000 mL, [place] 1,000 mL 00 :00 Intravenou Medic al s, ONCE, 1 Branch dose, [facility] 05/07/20 at 0815, Routine HYDROcodone 2020-0 Yes 1{tbl} 1 tablet, Univers -acetaminop 05-07 Oral, ity of hen (NORCO 13:00: Q6HPRN, [place] 5) 5-325 mg 00 Starting [facility] tablet 1 Mon [place] tablet 05/07/20 at 0800, Until Discontinu ed, Routine, Pain (scale 4-6) magnesium 2019-0 2020- No 2g 2 g, IV Univ ers sulfate in 05-07 Piggyback, it y of water 2 13:00: 15:10 ONCE, 1 [place] gram/50 mL 00 :00 dose, [facility] (4 %) 05/07/20 at [place] infusion 2 0800, g Routine ibuprofen 2019-0 Yes 800mg 800 mg, [facility] ers (IBU) 05-07 Oral, ity of tablet 800 12:45: Q6HPRN, [place] mg 22 Starting [facility] 05/07/20 at 0745, Until Discontinu ed, Routine, Pain (scale 4-6) FENTanyl PF 2019-0 2020- No Slow IV Un piyush (SUBLIMAZE 05-05 Push, PRN, it y of (PF)) 18:53: 20:05 Starting [place] injection 39 :03 [facility] 05/05/20 at [place] 1353, Until Discontinu ed, Routine lidocaine 2019-0 2020- No PRN, Univers 1% (PF) 05-05 Starting ity of (XYLOCAINE) 18:26: 18:26 Sat [place] injection 34 :34 05/05/20 at [facility] 1326, Branch Until Discontinu ed, Routine NaCl 0.9% 2020- No CONTINUOUS U nivers (NS) bolus 05-05 PRN, ity of infusion 18:15: 18:15 Starting [place] 06 :06 Sat Medical 05/05/20 at Branch 1315, Until Discontinu ed, STAT D5W 0.45% 2020- No IV Univers NaCl 05-05 Infusion, [...] First dose Medica l I.V.) RTU on [facility] IV infusion 05/05/20 at 500 mg [...] :33 over 90 Medica l mL Minutes, [place] Piggyback Q24H ABX, 750 mg First dose on 05/05/20 at 0230, Until Discontinu ed, JOÃO
Re ason for Anti-Infec tive: Documented Infection< br>Documen dain Infection Site: Abdominal< br>Duratio n of Therapy: 7 days morpHINE 2019- No 2mg 2 mg, Slow Un piysuh injection 2 05-05 IV Push, ity of mg 06:15: 06:14 Q4HPRN, [place] 31 :31 Starting Medical Sat Branch 05/05/20 at 0115, Until 05/07/20 at 0114, Routine, Pain (scale 7-10) HYDROcodone 2020-0 2020- No 1{tbl} 1 tablet, Univers -acetaminop 05-05 Oral, ity of hen (NORCO 06:15: 12:45 Q4HPRN, [place] 5) 5-325 mg 28 :43 Starting Medi mariusz tablet 1 Sat [place] tablet 05/05/20 at 0115, Until 05/07/20 at [...] of 350 04:00: 03:48 s, ONCE, 1 [place] BULK-150 00 :00 dose, Fri Medica l [...] Indication s: acute pain ibuprofen 2020-0 Yes [id number] 400mg Take 2 Univers 200 mg 9-08 tablets by ity of tablet 00:00: mouth [place] 00 every 6 Medical (six) Branch hours as needed for Pain (scale 1-3). ibuprofen 2020-0 Yes [id number] 400mg Take 2 Univers 200 mg 9-08 tablets by ity of tablet 00:00: mouth [place] 00 every 6 Medical (six) Branch hours as needed for Pain (scale 1-3). ibuprofen 2020-0 Yes [id number] 400mg Take 2 Univers 200 mg 9-08 tablets by ity of tablet 00:00: mouth [place] 00 every 6 Medical (six) Branch hours as needed for Pain (scale 1-3). ibuprofen 2020-0 Yes [id number] 400mg Take 2 Univers 200 mg 9-08 tablets by ity of tablet 00:00: mouth [place] 00 every 6 Medical (six) Branch hours as needed for Pain (scale 1-3). ibuprofen 2020-0 Yes [id number] 400mg Take 2 Univers 200 mg 9-08 tablets by ity of tablet 00:00: mouth [place] 00 every 6 Medical (six) Branch hours as needed for Pain (scale 1-3). ibuprofen 2020-0 Yes [id number] 400mg Take 2 Univers 200 mg 9-08 tablets by ity of tablet 00:00: mouth [place] 00 every 6 Medical (six) Branch hours as needed for Pain (scale 1-3). ibuprofen 2020-0 Yes [id number] 400mg Take 2 Univers 200 mg 9-08 tablets by ity of tablet 00:00: mouth [place] 00 every 6 Medical (six) Branch hours as needed for Pain (scale 1-3). acetaminoph 2019-0 2020- No [id number] 650mg Take 2 Univers en 9-08 09-09 tablets by ity of (TYLENOL) 00:00: 04:59 mouth [place] 325 mg 00 :00 every 6 Medical tablet (six) Branch hours as needed for Pain (scale 4-6). acetaminoph 2020- No [id number] 650mg Take 2 Univers en 05-01 tablets by ity of (TYLENOL) 00:00: 04:59 mouth [place] 325 mg 00 :00 every 6 Medical tablet (six) Branch hours as needed for Pain (scale 4-6). acetaminoph 2020- No [id number] 650mg Take 2 Univers en 05-01 tablets by ity of (TYLENOL) 00:00: 04:59 mouth [place] 325 mg 00 :00 every 6 Medical tablet (six) Branch hours as needed for Pain (scale 4-6). acetaminoph 2020- No [id number] 650mg Take 2 Univers en 05-01 tablets by ity of (TYLENOL) 00:00: 04:59 mouth [place] 325 mg 00 :00 every 6 Medical tablet (six) Branch hours as needed for Pain (scale 4-6). acetaminoph 2020- No [id number] 650mg Take 2 Univers en 05-01 tablets by ity of (TYLENOL) 00:00: 04:59 mouth [place] 325 mg 00 :00 every 6 Medical tablet (six) Branch hours as needed for Pain (scale 4-6). acetaminoph 2020- No [id number] 650mg Take 2 Univers en 05-01 tablets by ity of (TYLENOL) 00:00: 04:59 mouth [place] 325 mg 00 :00 every 6 Medical tablet (six) Branch hours as needed for Pain (scale 4-6). acetaminoph 2020- No [id number] 650mg Take 2 Univers en 05-01 tablets by ity of (TYLENOL) 00:00: 04:59 mouth [place] 325 mg 00 :00 every 6 Medical tablet (six) Branch hours as needed for Pain (scale 4-6). ciprofloxac 2019-2019- No [id number] 750mg Take 1 Univers in HCl 750 05-01 tablet by ity of mg tablet 00:00: 04:59 mouth [place] 00 :00 every 12 Medical (twelve) Branch hours for 14 days. amoxicillin 2020-0 2020- No [id number] 1{tbl} Take 1 Univers -clavulanat 05-01 tablet by it y of e 00:00: 04:59 mouth 2 [place] (AUGMENTIN) 00 :00 (two) Medical 875-125 mg times Branch per tablet daily for 14 days. ciprofloxac 2020-0 2020- No [id number] 750mg Take 1 Univers in HCl 750 05-01 tablet by ity of mg tablet 00:00: 04:59 mouth [place] 00 :00 every 12 Medical (twelve) Branch hours for 14 days. amoxicillin 2020-0 2020- No [id number] 1{tbl} Take 1 Univers -clavulanat 05-01 tablet by it y of e 00:00: 04:59 mouth 2 [place] (AUGMENTIN) 00 :00 (two) Medical 875-125 mg times Branch per tablet daily for 14 days. ciprofloxac 2019- 2020- No [id number] 750mg Take 1 Univers in HCl 750 05-01 tablet by ity of mg tablet 00:00: 04:59 mouth [place] 00 :00 every 12 Medical (twelve) Branch hours for 14 days. amoxicillin 2019-0 2020- No [id number] 1{tbl} Take 1 Univers -clavulanat 05-01 tablet by it y of e 00:00: 04:59 mouth 2 [place] (AUGMENTIN) 00 :00 (two) Medical 875-125 mg times Branch per tablet daily for 14 days. ciprofloxac 2019-0 2019- No [id number] 750mg Take 1 Univers in HCl 750 05-01 tablet by ity of mg tablet 00:00: 04:59 mouth [place] 00 :00 every 12 Medical (twelve) Branch hours for 14 days. amoxicillin 2020-0 2020- No [id number] 1{tbl} Take 1 Univers -clavulanat 05-01 tablet by it y of e 00:00: 04:59 mouth 2 [place] (AUGMENTIN) 00 :00 (two) Medical 875-125 mg times Branch per tablet daily for 14 days. ciprofloxac 2020-0 2020- No [id number] 750mg Take 1 Univers in HCl 750 05-01 tablet by ity of mg tablet 00:00: 04:59 mouth [place] 00 :00 every 12 Medical (twelve) Branch hours for 14 days. amoxicillin 2019- 2020- No [id number] 1{tbl} Take 1 Univers -clavulanat 05-01 tablet by it y of e 00:00: 04:59 mouth 2 [place] (AUGMENTIN) 00 :00 (two) Medical 875-125 mg times Branch per tablet daily for 14 days. ciprofloxac 2019-2019- No [id number] 750mg Take 1 Univers in HCl 750 05-01 tablet by ity of mg tablet 00:00: 04:59 mouth [place] 00 :00 every 12 Medical (twelve) Branch hours for 14 days. amoxicillin 2019-2019- No [id number] 1{tbl} Take 1 Univers -clavulanat 05-01 tablet by it y of e 00:00: 04:59 mouth 2 [place] (AUGMENTIN) 00 :00 (two) Medical 875-125 mg times Branch per tablet daily for 14 days. ciprofloxac 2019-2019- No [id number] 750mg Take 1 Univers in HCl 750 05-01 tablet by ity of mg tablet 00:00: 04:59 mouth [place] 00 :00 every 12 Medical (twelve) Branch hours for 14 days. amoxicillin 2019-2019- No [id number] 1{tbl} Take 1 Univers -clavulanat 05-01 tablet by it y of e 00:00: 04:59 mouth 2 [place] (AUGMENTIN) 00 :00 (two) Medical 875-125 mg times Branch per tablet daily for 14 days. acetaminoph 2020-0 2020- No [id number] 650mg Take 2 Univers en 05-01 tablets by ity of (TYLENOL) 00:00: 00:00 mouth [place] 325 mg 00 :00 every 6 Medical tablet (six) Branch hours as needed for Pain (scale 4-6). ibuprofen 2020-0 2020- No [id number] 400mg Take 2 Univers 200 mg 05-01 tablets by ity of tablet 00:00: 00:00 mouth [place] 00 :00 every 6 Medical (six) Branch hours as needed for Pain (scale 1-3). ciprofloxac 2019-0 2020- No [id number] 750mg Take 1 Univers in HCl 750 05-01 tablet by ity of mg tablet 00:00: 00:00 mouth [place] 00 :00 every 12 Medical (twelve) Branch hours for 14 days. amoxicillin 2020-0 2020- No [id number] 1{tbl} Take 1 Univers -clavulanat 05-01 tablet by it y of e 00:00: 00:00 mouth 2 [place] (AUGMENTIN) 00 :00 (two) Medical 875-125 mg [...] 04-25 Oral, ity of e 01:00: Q12H, [place] (AUGMENTIN) 00 First dose Me dical 875-125 [...] Until Tu04/24/20 at 1144, Routine NaCl 0.9% 2019-0 2019- No 1000mL at 999 Uni vers (NS) bolus 04-2331 mL/hr, ity of infusion 16:30: 16:14 1,000 [...] Br anch MINI-BAG (after last reorder) on [place] 04/22/20 at 0800, 100 mL
Rest ricted use approved by: [employer]< br>Reason for Anti-Infec tive: Documented Infection< br>Documen dain Infection Site: Abdominal< br>Duratio n of Therapy: 7 days ciprofloxac 2019-0 Yes 750mg 750 mg, Un piyush in HCl 04-21 Oral, ity of (CIPRO) 23:00: Q12HA2, [place] tablet 750 00 First dose Med ical mg on [facility] Branch 04/21/20 at 1800, Until Discontinu ed, JOÃO
Re ason for Anti-Infec tive: Documented Infection< br>Documen dain Infection Site: Abdominal< br>Duratio n of Therapy: 7 days aspirin 2019-0 Yes 81mg 81 mg, Univers chewable 04-21 Oral, ity of tablet 81 14:00: DAILY, [place] mg 00 First dose Medical on [facility] 04/21/20 at 0900, Until Discontinu ed, Routine multivitami 2019-0 Yes 1{tbl} 1 tablet, Univers n tablet 1 04-21 Oral, ity of tablet 14:00: DAILY, [place] 00 First dose Medical on [facility] 04/21/20 at 0900, Until Discontinu ed, Routine amoxicillin 2019-0 2020- No 500mg 500 mg, U nivers -pot 04-21 Oral, TID, ity of clavulanate 13:00: 14:44 First dose [place] 500 mg 00 :32 on [facility] Medical (AUGMENTIN 04/21/20 at [facility] 500) 0800, 500-125 mg Until [...] 50mg 50 mg, Univer s (ULTRAM) 04-20 09-09 Oral, ity of tablet 50 15:31: 11:12 [...] at 0900, Until Discontinu ed, Routine acetaminoph 0 Yes 500mg 500 mg, Un piyush en [...] [place] 00 :03 First dose Medical on [facility] 04/17/20 at 0900, Until Discontinu ed, Routine lidocaine 2019- No PRN, Univers 1% (PF) 04-16 Starting ity of (XYLOCAINE) 21:17: 21:17 Mon [place] injection 53 :53 04/16/20 at [facility] 1617, Branch Until [facility] 04/16/20 at 1617, Routine FENTanyl PF 2019- No Slow IV Un piyush (SUBLIMAZE 04-16 Push, PRN, it y of (PF)) 21:16: 21:16 Starting [place] injection 07 :07 [facility] Medical 04/16/20 at Branch 1616, Until [facility] 04/16/20 at 1616, Routine midazolam 2019- No IV Push, Uni vers (VERSED) 04-16 PRN, ity of injection 21:16: 21:16 Starting [place] 07 :07 [facility] Medical 04/16/20 at Branch 1616, Until [facility] 04/16/20 at 1616, Routine piperacilli 2019- [...] n of Therapy: 7 days iohexol 2019-0 2019- No 120mL 120 mL, Unive rs [...] [place] 04/12/20 at 1999, Last dose on [place] 04/15/20 at 1999, 100 mL
Reas on [...] 100 mL last MINI-BAG modificati on) on [facility] 04/12/20 at 1999, Until Discontinu ed, [...] dose, [place] Branch 04/12/20 at 1200, Routine
crew team member approving Restricted medication : BIA [...] in 06 :54 Starting Medica l lactated [facility] Branch ringers 04/11/20 at 1,000 mL 0852, infusion Until 04/14/20 at 0601, 1,000 mL, at 50 mL/hr nicotine 2020-0 Yes 1{patch 1 Patch, Un piyush (NICODERM) 04-11 } Topical, ity o f 7 mg/24 hr 13:15: Administer [place] patch 1 00 over 24 Medical Patch Hours, Branch Q24H, First dose on Thu04/11/20 at 0815, Until Discontinu ed, Routine enoxaparin 2019-2019- No 40mg 40 mg, Univ ers (LOVENOX) 04-11 09 Subcutaneo ity of injection 13:00: 00:44 us, Q24H, [place] 40 mg 00 :31 First dose Medical on Thu Branch 04/11/20 at 0800, Until Discontinu ed, Routine magnesium 2019-0 2020- No 2g 2 g, IV Univ ers sulfate in 04-11 Piggyback, it y of water 2 11:45: 15:06 ONCE, 1 [place] gram/50 mL 00 :00 dose, [facility] Medi mariusz (4 %) 04/11/20 at [...] First dose Medi mariusz (NS) on Thu [place] piggyback 04/10/20 at 0100, Until Discontinu ed, 100 mL
R mitali for Anti-Infec tive: Documented Infection< br>Documen dain Infection Site: Abdominal< br>Duratio n of Therapy: 7 days
Re stricted use approved by: [employer] ibuprofen 2019- No 600mg 600 mg, Uni vers (IBU) 04-10 Oral, Q8H, ity of tablet 600 03:00: 10:59 First dose [place] mg 00 :06 on [facility] 04/09/20 at Branch 2200, Until Discontinu ed, Routine micafungin 2019- No 100mg 100 mg, IV Univers (MYCAMINE) 04-10 Piggyback, it y of 100 mg in 02:45: 15:57 Q24H ABX, [place] NaCl 0.9% 00 :33 First dose Medi mariusz (NS) 100 mL on [facility] MINI-BAG 04/09/20 at 2145, Until Discontinu [...] [place] tablet 500 00 :23 on [facility] Medical mg 04/09/20 at Branch 1800, [...] in 20 :43 Starting Medica l lactated [facility] ringers 04/09/20 at 1,000 mL 1243, [...] on 04/08/20 at 1200, Last dose on Thu04/09/20 at 0600, Routine
Indicatio n: Perioperat ector Patient acetaminoph 2019-0 2020- No 1000mg 1,000 mg, Univers en ADULT 04-07 IV ity of (OFIRMEV) 23:00: 14:28 Infusion, [place] injection 00 :31 Administer Medi mariusz 1,000 mg over 15 Branch Minutes, Q6H, 4 doses, First dose (after last reorder) on [facility] 04/07/20 at 1800, Last dose on 04/08/20 at 1200, Routine
Indicatio n: Perioperat ector Patient D5W-LR IV 2019-0 2020- No 1000mL at 60 Univ ers infusion 04-07 08-16 mL/hr, IV ity o f 1,000 mL 22:45: 15:29 Infusion, [place] 00 :52 CONTINUOUS Medical , Starting Branch [facility] 04/07/20 at 1745, Until [place] 04/08/20 at 1029, Routine Total 2020-0 2020- No at 85 Univers Parenteral 04-07 08-16 mL/hr, ity of Nutrition 22:00: 22:05 2,040 mL, [place] Adult 00 :00 TPNCONTINU Medical OUS, 1 Branch dose, First dose on 04/07/20 at 1700 fluconazole 2019- 2020- No 400mg at 100 Un piyush (DIFLUCAN) 04-07 08-18 mL/hr, IV ity of IV 20:00: 01:35 Piggyback, [place] Piggyback 00 :07 Q24H ABX, Medic al [...] 00 :18 CONTINUOUS Medical , Starting Branch [facility] 04/07/20 at 0345, Until [facility] 04/07/20 at 1741, Routine D5W-LR IV 2020-0 [...] o f succ 02:00: 02:09 Q6H, First [place] (CORTEF) 50 00 :14 dose on Medic al mg in NaCl Thu Branch 0.9% (NS) 04/06/20 at piggyback 2100, Until Discontinu ed, 50 mL sodium Yes 1{bottl 473 mL (1 Uni vers hypochlorit 04-07 e} Bottle), ity of e 0.5% 01:00: Topical, [place] (DAKINS) 00 BID, First Medic al solution [...] of 1,000 mg in 19:30: 01:35 Piggyback, [place] NaCl 0.9% 00 :07 Administer Medi mariusz [...] 2020- No .2ug/kg 0.2-1.5 Univers dine 200 04-06-14 [...] 00 :35 Fri Medical injection 04/06/20 at [facility] 1110, Until 04/06/20 at 1129, Routine, Intra-op sodium 2020-0 2020- No ONCE INTRA Univ ers bicarbonate 04-06 PROCEDURE, i ty of 8.4 % (1 16:10: 16:29 Starting [place] mEq/mL) 00 :35 Fri Medical injection 04/06/20 at [facility] 1110, Until 04/06/20 at 1129, Routine, [...] :35 Fri Medical NaCl 0.9% 04/06/20 at [facility] (NS) 100 mL 0957, infusion Until Discontinu ed, 100 mL, Intra-op piperacilli 2020-0 2020- No CONTINUOUS Univers n-tazobacta 04-06 PRN, ity of m (ZOSYN) 14:57: 16:29 Starting [place] 3.375 g in 00 :35 Fri Medical NaCl 0.9% 04/06/20 at [facility] (NS) 100 mL 0957, infusion Until Discontinu ed, 100 mL, Intra-op EPINEPHrine 2020-0 2020- No ONCE INTRA Univers 1:1,000 (1 04-06 PROCEDURE, it y of mg/mL) 14:54: 16:29 Starting [place] (ADRENALIN) 00 :35 Fri Medical injection 04/06/20 at [facility] 0954, Until Discontinu ed, Routine, Intra-op EPINEPHrine 2020-0 2020- No ONCE INTRA Univers 1:1,000 (1 04-06 PROCEDURE, it y of mg/mL) 14:54: 16:29 Starting [place] (ADRENALIN) 00 :35 Fri Medical injection 04/06/20 at [facility] 0954, Until Discontinu ed, Routine, Intra-op NORepinephr 2020-0 2020- No CONTINUOUS Univers ine 04-06 PRN, ity of (LEVOPHED) 14:39: 16:29 Starting [place] 4 mg in 00 :35 Fri Medical NaCl 0.9% 04/06/20 at [facility] (NS) 250 mL 0939, infusion Intra-op NORepinephr 2020-0 2020- No CONTINUOUS Univers ine 04-06 PRN, ity of (LEVOPHED) 14:39: 16:29 Starting [place] 4 mg in 00 :35 [facility] Medical NaCl 0.9% 04/06/20 at [facility] (NS) 250 mL 0939, infusion Intra-op rocuronium 2020-0 2020- No IV Push, Un piyush (ZEMURON) 04-06 ONCE INTRA ity of injection 14:36: 16:29 PROCEDURE, [place] 00 :35 Starting [facility] Branch 04/06/20 at 0936, Until Thu04/06/20 at 1129, Routine, Intra-op rocuronium 2020-0 2020- No IV Push, Un piyush (ZEMURON) 04-06 ONCE INTRA ity of injection 14:36: 16:29 PROCEDURE, [place] 00 :35 Starting [facility] Branch 04/06/20 at 0936, Until Thu04/06/20 at 1129, Routine, Intra-op phenylephri 2020-0 2020- No Intravenou Univers ne 04-06 s, ONCE ity of (VAZCULEP) 14:22: 16:29 INTRA [place] injection 00 :35 PROCEDURE, [facility] Starting Branch 04/06/20 at 0922, Until Thu04/06/20 [...] Fri Medical mL (1 %) 04/06/20 at [facility] h injection 0915, Until Thu04/06/20 [...] :35 Starting Medica l [facility] 04/06/20 at 0915, Until Thu04/06/20 at 1129, Routine, Intra-op propofol IV 2020-0 2020- No ONCE INTRA Univers infusion 04-06 PROCEDURE, ity of 14:15: 16:29 Starting [place] 00 :35 [facility] Medical 04/06/20 at Branch 0915, Until Thu04/06/20 at 1129, Routine, Intra-op lidocaine 2020-0 2020- No ONCE INTRA U nivers 1% 04-06 PROCEDURE, ity of (XYLOCAINE) 14:15: 16:29 Starting [place] 100 mg/10 00 :35 [facility] Medical mL (1 %) 04/06/20 at [facility] h injection 0915, Until Thu04/06/20 at 1129, Routine, Intra-op FENTanyl PF 2019-0 2020- No ONCE INTRA Univers (SUBLIMAZE 04-06 PROCEDURE, it y of (PF)) 14:15: 16:29 Starting [place] injection 00 :35 [facility] 04/06/20 at Branch 0915, Until Thu04/06/20 at 1129, Routine, Intra-op albumin 2020-0 2020- No CONTINUOUS Uni vers (ALBUMINAR- 04-06 PRN, ity of 5) 5 % 14:10: 16:29 Starting [place] injection 00 :35 [facility] 04/06/20 at Branch 0910, Until Discontinu ed, Intra-op lactated 2020-0 2020- No CONTINUOUS Un piyush ringers IV 04-06 PRN, ity of infusion 14:10: 16:29 Starting [place] 00 :35 [facility] 04/06/20 at Branch 0910, Until Discontinu ed, Routine, Intra-op albumin 2020-0 2020- No CONTINUOUS Uni vers (ALBUMINAR- 04-06 PRN, ity of 5) 5 % 14:10: 16:29 Starting [place] injection 00 :35 [facility] 04/06/20 at Branch 0910, Until [...] Branch dose, Thu04/06/20 at 0730, Routine methocarbam 2019-0 2020- No [...] 2000, Until Discontinu ed, 100 mL acetaminoph 2019-2019- No 1000mg 1,000 mg, Univers en ADULT [...] Medi mariusz (8 %) IV 04/04/20 at [facility] h Piggyback 4 0715, g Routine ketorolac 2019- 2020- No 30mg 30 mg, Unive rs (TORADOL) 04-04 Slow IV ity of injection 05:00: 16:23 Push, Q6H, [place] 30 mg 00 :00 3 doses, Medical First dose Branch (after last modificati on) on Thu04/04/20 at 0000, Last dose on Thu04/04/20 at 1200, Routine
crew team member approving Restricted medication : BIA [...] 26 Starting Medi mariusz mg [facility] Branch 04/03/20 at 1627, Until Discontinu ed, Routine, Nausea and Vomiting (N/V) alvimopan 2019-2019- No 12mg 12 mg, Unive rs (ENTEREG) 04-03 Oral, ity of capsule 12 13:45: 14:02 ONCE, 1 [place] mg 00 :00 dose, [facility] 04/03/20 at Branch 0845, Routine
Restricte d use approved by: HELENE MEDELLIN - SURGERY/GE NERAL heparin 2019- No 5000U 5,000 Univers (porcine) 04-03 Units, ity of injection 12:00: 12:02 Subcutaneo [place] 5,000 Units 00 :00 us, ONCE, Med ical 1 dose, Branch [facility] 04/03/20 at 0700, Routine gabapentin 2019- No 300mg 300 mg, Un piyush (NEURONTIN) 04-03 Oral, ity of 250 mg/5 mL 12:00: 12:02 ONCE, 1 [place] solution 00 :00 dose, [facility] Medica l 300 mg 04/03/20 at Branch 0700, Routine D5W 0.45% 2019- 2020- No IV Univers NaCl 04-0212 Infusion, ity of (1/2NS) 1 L 23:30: 17:59 at 125 [place] + KCL 20 00 :42 mL/hr, Medical mEq CONTINUOUS Branch , Starting 04/02/20 at 1830, Until Thu04/04/20 at 1259, Routine NaCl 0.9% 2019- 2020- No 1000mL at 999 Uni vers (NS) bolus 04-02- mL/hr, ity of infusion 22:45: 21:48 1,000 [...] mL/hr, Medical mEq CONTINUOUS Branch , Starting [place] 04/01/20 at 1915, Until 04/02/20 at 1816, Routine acetaminoph 2019-2019- No 650mg 650 mg, U nivers en 04-01 Oral, ity of (TYLENOL) 23:11: 21:31 Q6HPRN, [place] 650 57 :27 Starting Medic al mg [place] 04/01/20 Branch at 1811, Until 04/03/20 at 1631, Routine, Pain (scale 1-3), Pain (scale 4-6) NaCl 0.9% 2019- No 1000mL at 999 Uni vers (NS) bolus 04-01 mL/hr, ity of infusion 23:10: 00:18 1,000 mL, [place] 1,000 mL 00 :00 IV Medical Piggyback, Branch ONCE, 1 dose, [place] 04/01/20 at 1815, STAT lactulose 2019-0 2020- No 15mL 15 mL, Unive rs (CEPHULAC) 04-01 Oral, ity of solution 15 16:15: 16:01 ONCE, 1 [place] mL 00 :00 dose, [facility] 04/01/20 at Branch 1115, Routine Polyethylen 2019-0 2020- No 17g 17 g, Univ ers e Glycol 03-31 Oral, BID ity o f 3350 15:45: 23:13 MEALS, [place] (MIRALAX) 00 :14 First dose Medi mariusz powder 17 g on Sat Branch 03/31/20 at 1045, Until Discontinu ed, Routine enoxaparin 2019-2019- No 40mg 40 mg, Univ ers (LOVENOX) 03-31 Subcutaneo ity of injection 14:00: 10:50 us, DAILY, [place] 40 mg 00 :07 First dose Medical on Sat Branch 03/31/20 at 0900, Until Discontinu ed, Routine D5W-LR IV 2019- 2020- No 1000mL at 125 Uni vers infusion 03-31 mL/hr, IV ity o f 1,000 mL 03:00: 23:13 Infusion, [place] 00 :14 CONTINUOUS Medical , Starting Branch 03/30/20 at 2200, Until [place] 04/01/20 at 1813, Routine ondansetron 2019-2019- No 4mg [...] Branch injection 1915, 100 mL Routine ondansetron 2019-2019- No 4mg 4 mg, Slow Univers (ZOFRAN 03-30 IV Push, ity of (PF)) 23:15: 22:07 ONCE, 1 [place] injection 4 00 :00 dose, Fri Med ical mg 03/30/20 at Branch 1815, JOÃO FENTanyl PF 2019-2019- No 50ug 50 mcg, Un piyush (SUBLIMAZE [...] Thu03/28/20 at 0800, Routine metoclopram 2020-0 Yes [id number] 5mg Take 1 Univers tammi HCl 8-05 tablet by ity of (REGLAN) 5 00:00: mouth [place] mg tablet 00 every 12 Medica l (twelve) Branch hours as needed for Nausea and Vomiting (N/V) (constipat ion). metoclopram 2020-0 Yes [id number] 5mg Take 1 Univers tammi HCl 8-05 tablet by ity of (REGLAN) 5 00:00: mouth [place] mg tablet 00 every 12 Medica l (twelve) Branch hours as needed for Nausea and Vomiting (N/V) (constipat ion). metoclopram 2020-0 Yes [id number] 5mg Take 1 Univers tammi HCl 8-05 tablet by ity of (REGLAN) 5 00:00: mouth [place] mg tablet 00 every 12 Medica l (twelve) Branch hours as needed for Nausea and Vomiting (N/V) (constipat ion). metoclopram 2020-0 Yes [id number] 5mg Take 1 Univers tammi HCl 8-05 tablet by ity of (REGLAN) 5 00:00: mouth [place] mg tablet 00 every 12 Medica l (twelve) Branch hours as needed for Nausea and Vomiting (N/V) (constipat ion). metoclopram 2020-0 2020- No [id number] 5mg Take 1 Univers tammi HCl 8-05 [...] injection 4 11 Starting Medi mariusz mg [place] 03/25/20 Branch at 2146, Until Discontinu ed, Routine, Nausea and Vomiting (N/V) acetaminoph 2020-0 Yes 650mg 650 mg, Un piyush en 03-26 Oral, ity of (TYLENOL) 02:46: Q6HPRN, [place] tablet 650 05 Starting Medic al mg [place] 03/25/20 Branch at 2146, Until Discontinu ed, Routine, Pain (scale 1-3) iohexol 2020-0 2020- No 100mL 100 mL, Unive rs (OMNIPAQUE 03-2603 Intravenou it y of 350 01:30: 01:30 s, ONCE, 1 [place] BULK-100 00 :00 dose, [place] Medica l mL) 03/25/20 at Branch injection 2030, 100 mL Routine NaCl 0.9% 2020-0 2020- No 1000mL at 999 Uni vers (NS) bolus 03-2603 mL/hr, ity of infusion 00:45: 00:42 1,000 mL, [place] 1,000 mL 00 :00 IV Medical Infusion, Branch ONCE, 1 dose, [place] 03/25/20 at 1945, JOÃO enoxaparin 2020-0 Yes 40mg 40 mg, Unive rs (LOVENOX) 7-11 Subcutaneo ity of injection 14:00: us, DAILY, [place] 40 mg 00 First dose Medical on Sat [place] 03/03/20 at 0900, Until Discontinu ed, Routine lactated 2020-0 Yes 1000mL at 100 Unive rs ringers IV 7-11 mL/hr, ity of infusion 04:15: 1,000 mL, [place] 1,000 mL 00 IV Medical Infusion, Branch CONTINUOUS , Starting Thu03/02/20 at 2315, Until Discontinu ed, Routine ondansetron 2020-0 Yes 4mg 4 mg, Slow Univers (ZOFRAN 7-11 IV Push, ity of (PF)) 04:05: Q6HPRN, [place] injection 4 40 Starting Medi mariusz mg Fri [place] 03/02/20 at 2305, Until Discontinu ed, Routine, Nausea and Vomiting (N/V) acetaminoph 2020-0 Yes 650mg 650 mg, Un piyush en 711 Oral, ity of (TYLENOL) 04:05: Q6HPRN, [place] tablet 650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 [facility] Vaccine [facility] IM 3+ 00:00:00 [facility] Influenza Virus 2016-05-16 Completed [facility] Vaccine [facility] IM 3+ 00:00:00 [facility] Influenza Virus 2016-05-16 Completed [facility] of Vaccine Quad IM 3+ 00:00:00 [facility] Influenza Virus 2016-05-16 Completed [facility] of Vaccine Quad IM 3+ 00:00:00 [facility] Influenza Virus 2016-05-16 Completed [facility] of Vaccine [facility] IM 3+ 00:00:00 [facility] Influenza Virus 2016-05-16 Completed [facility] Vaccine Quad IM 3+ 00:00:00 [facility] Influenza Virus 2016-05-16 Completed [facility] of Vaccine Quad IM 3+ 00:00:00 [facility] Influenza Virus 2016-05-16 Completed [facility] Vaccine [facility] IM 3+ 00:00:00 [facility] Influenza Virus 2016-05-16 Completed [facility] of Vaccine Quad IM 3+ 00:00:00 [facility] Influenza Virus 2016-05-16 Completed [facility] of Vaccine Quad IM 3+ 00:00:00 [facility] Influenza Virus 2016-05-16 Completed [facility] of Vaccine [facility] IM 3+ 00:00:00 [facility] Influenza Virus 2016-05-16 Completed [facility] Vaccine [facility] IM 3+ 00:00:00 [facility] Influenza Virus 2016-05-16 Completed [facility] of Vaccine Quad IM 3+ 00:00:00 [facility] Influenza Virus 2016-05-16 Completed [facility] of Vaccine Quad IM 3+ 00:00:00 [facility] Influenza Virus 2016-05-16 Completed [facility] of Vaccine Quad IM 3+ 00:00:00 [facility] Influenza Virus 2016-05-16 Completed [facility] of Vaccine Quad IM 3+ 00:00:00 [facility] Influenza Virus 2016-05-16 Completed [facility] of Vaccine Quad IM 3+ 00:00:00 [facility] Influenza Virus 2016-05-16 Completed [facility] of Vaccine Quad IM 3+ 00:00:00 [facility] Influenza Virus 2016-05-16 Completed [facility] of Vaccine Quad IM 3+ 00:00:00 [facility] Influenza Virus 2016-05-16 Completed [facility] of Vaccine Quad IM 3+ 00:00:00 [facility] Influenza Virus 2016-05-16 Completed [facility] of Vaccine Quad IM 3+ 00:00:00 [facility] PPD Unknown Completed [facility] Influenza Virus Unknown Completed [facility] y of Vaccine Quad IM 3+ [facility] Influenza Virus Unknown Completed [facility] y of Vaccine Quad .5 mL [facility] IM 6+ MO Branch (FLUZONE/FLULAVAL/F LUARIX) Influenza Virus Unknown Completed [facility]it y of Vaccine Quad IM, [facility] dical Preserv and ABX Branch Free 6 MO-64 YRS (FLUCELVAX) Influenza Virus Unknown Completed [facility]it y of Vaccine Quad IM 3+ [facility] Influenza Virus Unknown Completed [facility]it y of Vaccine Quad .5 mL [facility] IM 6+ MO Branch (FLUZONE/FLULAVAL/F LUARIX) Influenza Virus Unknown Completed [facility]it y of Vaccine Quad IM, [facility] dical Preserv and ABX Branch Free 6 MO-64 YRS (FLUCELVAX) Influenza Virus Unknown Completed [facility]it y of Vaccine Quad IM 3+ [facility] Influenza Virus Unknown Completed [facility]it y of Vaccine Quad .5 mL [facility] IM 6+ MO Branch (FLUZONE/FLULAVAL/F LUARIX) Influenza Virus Unknown Completed [facility] y of Vaccine Quad IM, [facility] dical Preserv and ABX Branch Free 6 MO-64 YRS (FLUCELVAX) Influenza Virus Unknown Completed [facility] y of Vaccine Quad IM 3+ [facility] Influenza Virus Unknown Completed [facility]it y of Vaccine Quad .5 mL [facility] IM 6+ MO Branch (FLUZONE/FLULAVAL/F LUARIX) Influenza Virus Unknown Completed [facility] y of Vaccine Quad IM, [facility] dical Preserv and ABX Branch Free 6 MO-64 YRS (FLUCELVAX) Influenza Virus Unknown Completed [facility]it y of Vaccine Quad IM 3+ [facility] Vital Signs Vital Name Observation Time Observation Value Comments Source Systolic blood 2023-03-20 110 mm[Hg] [facility] of pressure 22:49:37 [facility] Diastolic blood 2023-03-20 64 mm[Hg] University o f pressure 22:49:37 [facility] Heart rate 2023-03-20 75 /min University of 22:49:37 [facility] Body temperature 2023-03-20 36.94 Tasia University of 22:49:37 [facility] Respiratory rate 2023-03-20 17 /min University of 22:49:37 [facility] Oxygen saturation 2023-03-20 99 /min University of in Arterial blood 22:49:37 [facility] by Pulse oximetry Branch Body height 2023-03-20 185.4 cm University of 19:26:00 [facility] Body weight 2023-03-20 65.772 kg University of 19:26:00 [facility] BMI 2023-03-20 19.13 kg/m2 University of 19:26:00 [facility] Systolic blood 2023-01-28 99 mm[Hg] University of pressure 16:47:00 [facility] Diastolic blood 2023-01-28 63 mm[Hg] University o f pressure 16:47:00 [facility] Heart rate 2023-01-28 79 /min University of 16:47:00 [facility] Body temperature 2023-01-28 36.44 Tasia University of 16:47:00 [facility] Respiratory rate 2023-01-28 12 /min University of 16:47:00 [facility] Oxygen saturation 2023-01-28 100 /min University of in Arterial blood 16:47:00 [facility] by Pulse oximetry Branch Body height 2023-01-27 185.4 cm University of 21:40:00 [facility] Body weight 2023-01-27 72.666 kg University of 21:40:00 [facility] BMI 2023-01-27 21.14 kg/m2 University of 21:40:00 [facility] Systolic blood 2023-01-27 120 mm[Hg] [facility] pressure 04:00:00 [facility] Diastolic blood 2023-01-27 84 mm[Hg] University o f pressure 04:00:00 [facility] Heart rate 2023-01-27 84 /min University of 04:00:00 [facility] Respiratory rate 2023-01-27 20 /min University of 04:00:00 [facility] Oxygen saturation 2023-01-27 99 /min University of in Arterial blood 04:00:00 [facility] by Pulse oximetry Branch Body temperature 2023-01-26 36.94 Tasia University of 23::00 [facility] Body height 2023-01-26 185.4 cm University of :: [facility] Body weight 2023-01-26 68.04 kg University of :: [facility] BMI 2023-01-26 19.79 kg/m2 University of :28:00 [facility] Systolic blood 2022-12-15 128 mm[Hg] [facility] pressure 00:23:00 [facility] Diastolic blood 2022-12-15 72 mm[Hg] University o f pressure 00:23:00 [facility] Heart rate 2022-12-15 90 /min University of ::00 [facility] Body temperature 2022-12-15 36.94 Tasia University of :23:00 [facility] Respiratory rate 2022-12-15 18 /min University of ::00 [facility] Oxygen saturation 2022-12-15 100 /min University of in Arterial blood 00:23:00 [facility] by Pulse oximetry Branch Body weight 2022-12-14 68.04 kg University of :43:00 [facility] BMI 2022-12-14 19.79 kg/m2 University of :43:00 [facility] Systolic blood 2022-12-09 90 mm[Hg] [facility] of pressure 16:10:00 [facility] Diastolic blood 2022-12-09 51 mm[Hg] University o f pressure 16:10:00 [facility] Heart rate 2022-12-09 81 /min University of 16:10:00 [facility] Body temperature 2022-12-09 37 Tasia University of 16:10:00 [facility] Respiratory rate 2022-12-09 17 /min University of 16:10:00 [facility] Oxygen saturation 2022-12-09 97 /min University of in Arterial blood 16:10:00 [facility] by Pulse oximetry Branch Body height 2022-11-27 185.4 cm University of 21:01:00 [facility] Body weight 2022-11-27 68.04 kg University of 21:01:00 [facility] BMI 2022-11-27 19.79 kg/m2 University of 21:01:00 [facility] Systolic blood 2022-12-04 90 mm[Hg] [facility] pressure 16:01:00 [facility] Diastolic blood 2022-12-04 57 mm[Hg] University o f pressure 16:01:00 [facility] Heart rate 2022-12-04 72 /min University of 16:01:00 [facility] Respiratory rate 2022-12-04 18 /min University of 16:01:00 [facility] Oxygen saturation 2022-12-04 96 /min [facility] of in Arterial blood 16:01:00 [facility] by Pulse oximetry Branch Body temperature 2022-12-04 36.67 Tasia University of 15:58:00 [facility] Body height 2022-11-27 185.4 cm University of :01:00 [facility] Body weight 2022-11-27 68.04 kg University of ::00 [facility] BMI 2022-11-27 19.79 kg/m2 University of 21:01:00 [facility] Systolic blood 2022-11-22 97 mm[Hg] [facility] pressure 16:45:00 [facility] Diastolic blood 2022-11-22 64 mm[Hg] University o f pressure 16:45:00 [facility] Heart rate 2022-11-22 75 /min University of 16:45:00 [facility] Body temperature 2022-11-22 35.56 Tasia University of 16:45:00 [facility] Respiratory rate 2022-11-22 18 /min University of 16:45:00 [facility] Oxygen saturation 2022-11-22 100 /min University of in Arterial blood 16:45:00 [facility] mariusz by Pulse oximetry Branch Body weight 2022-11-20 70.3 kg University of 19:00:00 [facility] BMI 2022-11-20 20.45 kg/m2 University of 19:00:00 [facility] Body height 2022-11-20 185.4 cm University of 01:59:00 [facility] Systolic blood 2022-11-06 91 mm[Hg] [facility] pressure 16:52:00 [facility] Diastolic blood 2022-11-06 55 mm[Hg] University o f pressure 16:52:00 [facility] Heart rate 2022-11-06 70 /min University of 16:52:00 [facility] Body temperature 2022-11-06 36.78 Tasia University of 16:52:00 [facility] Respiratory rate 2022-11-06 20 /min University of 16:52:00 [facility] Oxygen saturation 2022-11-06 99 /min [facility] of in Arterial blood 16:52:00 [facility] mariusz by Pulse oximetry Branch Body height 2022-11-02 185.4 cm University of 20:04:00 [facility] Body weight 2022-11-02 70.489 kg University of 20:04:00 [facility] BMI 2022-11-02 20.50 kg/m2 University of 20:04:00 [facility] Systolic blood 2022-10-20 102 mm[Hg] [facility] pressure 04:30:00 [facility] Diastolic blood 2022-10-20 73 mm[Hg] University o f pressure 04:30:00 [facility] Heart rate 2022-10-20 83 /min University of 04:30:00 [facility] Respiratory rate 2022-10-20 19 /min University of 04:30:00 [facility] Oxygen saturation 2022-10-20 100 /min [facility] of in Arterial blood 04:30:00 [facility] by Pulse oximetry Branch Body temperature 2022-10-20 36.61 Tasia University of 01:14:00 [facility] Body weight 2022-10-20 68.04 kg University of 01:14:00 [facility] BMI 2022-10-20 19.79 kg/m2 University of 01:14:00 [facility] Systolic blood 2022-05-21 103 mm[Hg] [facility] pressure 17:00:00 [facility] Diastolic blood 2022-05-21 56 mm[Hg] University o f pressure 17:00:00 [facility] Heart rate 2022-05-21 71 /min University of 17:00:00 [facility] Respiratory rate 2022-05-21 11 /min University of 17:00:00 [facility] Oxygen saturation 2022-05-21 100 /min [facility] of in Arterial blood 17:00:00 [facility] mariusz by Pulse oximetry Branch Body temperature 2022-05-21 36.39 Tasia University of 12:10:00 [facility] Body weight 2022-05-21 69.491 kg University of 09:00:00 [facility] BMI 2022-05-21 20.21 kg/m2 University of 09:00:00 [facility] Body height 2022-05-20 185.4 cm University of 06:07:00 [facility] Systolic blood 2022-04-10 115 mm[Hg] [facility] pressure 05:05:13 [facility] Diastolic blood 2022-04-10 93 mm[Hg] University o f pressure 05:05:13 [facility] Heart rate 2022-04-10 87 /min University of 05:05:13 [facility] Respiratory rate 2022-04-10 15 /min University of 05:05:13 [facility] Oxygen saturation 2022-04-10 100 /min [facility] in Arterial blood 05:05:13 [facility] Pulse oxim[facility] Body temperature 2022-04-10 36.61 Tasia [facility] 01:35:00 [facility] Body height 2022-04-10 185.4 cm [facility] 01:35:00 [facility] Body weight 2022-04-10 68.04 kg [facility] 01:35:00 [facility] BMI 2022-04-10 19.79 kg/m2 University 01:35:00 [facility] Systolic blood 2022-04-08 86 mm[Hg] [facility] pressure 13:00:00 [facility] Diastolic blood 2022-04-08 75 mm[Hg] University o f pressure 13:00:00 [facility] Heart rate 2022-04-08 61 /min University of 13:00:00 [facility] Body temperature 2022-04-08 35.67 Tasia University 13:00:00 [facility] Respiratory rate 2022-04-08 17 /min University of 13:00:00 [facility] Oxygen saturation 2022-04-08 95 /min [facility] in Arterial blood 13:00:00 [facility] Pulse oxim[facility] Body weight 2022-04-06 72.984 kg University of 08:20:00 [facility] BMI 2022-04-06 21.23 kg/m2 University of 08:20:00 [facility] Body height 2022-04-02 185.4 cm University 16:37:00 [facility] Systolic blood 2022-03-13 94 mm[Hg] [facility] pressure 15:33:00 Diastolic blood 2022-03-13 62 mm[Hg] [facility] pressure 15:33:00 Heart rate 2022-03-13 109 /min [facility] 15:33:00 Body temperature 2022-03-13 36.67 Tasia [facility] 15:33:00 Respiratory rate 2022-03-13 20 /min [facility] 15:33:00 Body height 2022-03-13 185.4 cm [facility] 15:33:00 Body weight 2022-03-13 66.679 kg [facility] 15:33:00 BMI 2022-03-13 19.39 kg/m2 [facility] 15:33:00 Oxygen saturation 2022-03-13 100 /min [facility] Arterial blood 15:33:00 by Pulse oximetry HEIGHT 2022-03-06 185.4 cm 12:05:00 WEIGHT 2022-03-06 65.772 kg 12:05:00 HEIGHT 2022-03-06 185.4 cm 12:05:00 WEIGHT 2022-03-06 65.772 kg 12:05:00 Systolic blood 2022-02-20 118 mm[Hg] [facility] pressure 08:01:00 Diastolic blood 2022-02-20 82 mm[Hg] [facility] pressure 08:01:00 Heart rate 2022-02-20 67 /min [facility] 08:01:00 Body temperature 2022-02-20 36.44 Tasia [facility] 08:01:00 Respiratory rate 2022-02-20 17 /min [facility] 08:01:00 Oxygen saturation 2022-02-20 99 /min [facility] Arterial blood 08:01:00 by Pulse oximetry Body height 2022-02-19 185.4 cm [facility] 16:00:00 Body weight 2022-02-19 69.945 kg [facility] 16:00:00 BMI 2022-02-19 20.34 kg/m2 [facility] 16:00:00 Systolic blood 2022-02-20 118 mm[Hg] [facility] pressure 08:01:00 Diastolic blood 2022-02-20 82 mm[Hg] [facility] h pressure 08:01:00 Heart rate 2022-02-20 67 /min [facility] 08:01:00 Body temperature 2022-02-20 36.44 Tasia [facility] 08:01:00 Respiratory rate 2022-02-20 17 /min [facility] 08:01:00 Oxygen saturation 2022-02-20 99 /min [facility] Arterial blood 08:01:00 by Pulse oximetry Body height 2022-02-19 185.4 cm [facility] 16:00:00 Body weight 2022-02-19 69.945 kg [facility] 16:00:00 BMI 2022-02-19 20.34 kg/m2 [facility] 16:00:00 Systolic blood 2022-02-11 98 mm[Hg] [facility] pressure 11:30:00 Diastolic blood 2022-02-11 57 mm[Hg] [facility] h pressure 11:30:00 Heart rate 2022-02-11 62 /min [facility] 11:30:00 Body temperature 2022-02-11 37.17 Tasia [facility] 11:30:00 Respiratory rate 2022-02-11 11 /min [facility] 11:30:00 Oxygen saturation 2022-02-11 98 /min [facility] Arterial blood 11:30:00 by Pulse oximetry Body height 2022-02-08 185.4 cm [facility] 01:10:00 Body weight 2022-02-08 70.761 kg [facility] 01:10:00 BMI 2022-02-08 20.58 kg/m2 [facility] 01:10:00 Systolic blood 2022-02-11 98 mm[Hg] [facility] pressure 11:30:00 Diastolic blood 2022-02-11 57 mm[Hg] [facility] h pressure 11:30:00 Heart rate 2022-02-11 62 /min [facility] 11:30:00 Body temperature 2022-02-11 37.17 Tasia [facility] 11:30:00 Respiratory rate 2022-02-11 11 /min [facility] 11:30:00 Oxygen saturation 2022-02-11 98 /min [facility] Arterial blood 11:30:00 by Pulse oximetry Body height 2022-02-08 185.4 cm [facility] 01:10:00 Body weight 2022-02-08 70.761 kg [facility] 01:10:00 BMI 2022-02-08 20.58 kg/m2 [facility] 01:10:00 Systolic blood 2021-09-14 106 mm[Hg] [facility] pressure 03:17:00 [facility] Diastolic blood 2021-09-14 55 mm[Hg] [facility] pressure 03:17:00 [facility] Heart rate 2021-09-14 86 /min University of 03:17:00 [facility] Body temperature 2021-09-14 36.89 Tasia [facility] 03:17:00 [facility] Respiratory rate 2021-09-14 18 /min University of 03:17:00 [facility] Oxygen saturation 2021-09-14 98 /min University of in Arterial blood 03:17:00 [facility] Systolic blood 2021-09-12 90 mm[Hg] [facility] pressure 22:20:00 [facility] Diastolic blood 2021-09-12 66 mm[Hg] [facility] o f pressure 22:20:00 [facility] Heart rate 2021-09-12 97 /min [facility] of 22:20:00 [facility] Body temperature 2021-09-12 36.61 Tasia University of 22:20:00 [facility] Respiratory rate 2021-09-12 16 /min University of :20:00 [facility] Oxygen saturation 2021-09-12 98 /min [facility] of in Arterial blood 22:20:00 [facility] by Pulse oxim[facility] Branch Body weight 2021-09-12 68.04 kg University of 20:25:00 [facility] BMI 2021-09-12 19.79 kg/m2 University of 20:25:00 [facility] Systolic blood 2021-09-12 103 mm[Hg] [facility] pressure 13:29:00 [facility] Diastolic blood 2021-09-12 67 mm[Hg] [facility] pressure 13:29:00 [facility] Heart rate 2021-09-12 91 /min [facility] of 13:29:00 [facility] Body temperature 2021-09-12 36.72 Tasia [facility] of 13:29:00 [facility] Respiratory rate 2021-09-12 33 /min [facility] of 13:29:00 [facility] Oxygen saturation 2021-09-12 98 /min [facility] in Arterial blood 13:29:00 [facility] Body weight 2021-09-12 68.04 kg University of 12:17:00 [facility] BMI 2021-09-12 19.79 kg/m2 University of 12:17:00 [facility] Systolic blood 2021-09-09 100 mm[Hg] [facility] pressure 04:59:00 [facility] Diastolic blood 2021-09-09 60 mm[Hg] [facility] f pressure 04:59:00 [facility] Heart rate 2021-09-09 85 /min University of 04:59:00 [facility] Body temperature 2021-09-09 36.5 Tasia [facility] of 04:59:00 [facility] Respiratory rate 2021-09-09 16 /min [facility] of 04:59:00 [facility] Body height 2021-09-09 185.4 cm [place] of 04:59:00 [facility] Body weight 2021-09-09 68.04 kg University of 04:59:00 [facility] BMI 2021-09-09 19.79 kg/m2 [place] of 04:59:00 [facility] Oxygen saturation 2021-09-09 98 /min [place] [facility] [employer] in Arterial blood 04:59:00 [facility] by Pulse oximetry Branch Systolic blood 2021-09-08 129 mm[Hg] [facility] pressure 05:42:00 [facility] Diastolic blood 2021-09-08 69 mm[Hg] [facility] pressure 05:42:00 [facility] Heart rate 2021-09-08 85 /min [facility] 05:42:00 [facility] Respiratory rate 2021-09-08 17 /min [facility] 05:42:00 [facility] Oxygen saturation 2021-09-08 98 /min [facility] in Arterial blood 05:42:00 [facility] by Pulse o[facility] Body temperature 2021-09-08 37.44 Tasia [place] of 01:22:00 [facility] Body weight 2021-09-08 68 kg University of 01:22:00 [facility] BMI 2021-09-08 19.78 kg/m2 University of 01:22:00 [facility] Systolic blood 2021-09-06 123 mm[Hg] [facility] pressure 21:33:00 [facility] Diastolic blood 2021-09-06 65 mm[Hg] [facility] pressure 21:33:00 [facility] Heart rate 2021-09-06 91 /min University of :33:00 [facility] Body temperature 2021-09-06 36.39 Tasia University of :33:00 [facility] Respiratory rate 2021-09-06 18 /min University of :33:00 [facility] Body weight 2021-09-06 68.04 kg University of 21:33:00 [facility] BMI 2021-09-06 19.79 kg/m2 University of 21:33:00 [facility] Oxygen saturation 2021-09-06 100 /min [facility] in Arterial blood 21:33:00 [place] [facility] Systolic blood 2021-09-05 99 mm[Hg] [facility] pressure 17:16:00 [facility] Diastolic blood 2021-09-05 62 mm[Hg] [facility] pressure 17:16:00 [facility] Heart rate 2021-09-05 78 /min [facility] of 17:16:00 [facility] Body temperature 2021-09-05 36.39 Tasia [facility] of 17:16:00 [facility] Respiratory rate 2021-09-05 17 /min [facility] of 17:16:00 [facility] Oxygen saturation 2021-09-05 95 /min [facility] in Arterial blood 17:16:00 [facility] by Pulse oxim[facility] Body height 2021-08-31 185.4 cm University of 07:29:00 [facility] Body weight 2021-08-31 68.04 kg University of 07:29:00 [facility] BMI 2021-08-31 19.79 kg/m2 University of 07:29:00 [facility] Systolic blood 2021-09-03 111 mm[Hg] [facility] pressure 15:59:00 [facility] Diastolic blood 2021-09-03 65 mm[Hg] [facility] pressure 15:59:00 [facility] Heart rate 2021-09-03 75 /min [facility] of 15:59:00 [facility] Body temperature 2021-09-03 35.72 Tasia [facility] of 15:59:00 [facility] Respiratory rate 2021-09-03 18 /min [facility] of 15:59:00 [facility] Oxygen saturation 2021-09-03 100 /min [facility] in Arterial blood 15:59:00 [place] [facility] Body height 2021-08-31 185.4 cm University of 07:29:00 [facility] Body weight 2021-08-31 68.04 kg University of 07:29:00 [facility] BMI 2021-08-31 19.79 kg/m2 University of 07:29:00 [facility] Systolic blood 2021-08-29 111 mm[Hg] [facility] pressure 23:12:00 [facility] Diastolic blood 2021-08-29 73 mm[Hg] [facility] pressure 23:12:00 [facility] Heart rate 2021-08-29 95 /min [facility] of 23:12:00 [facility] Body temperature 2021-08-29 37 Tasia [facility] of 23:12:00 [facility] Respiratory rate 2021-08-29 18 /min [facility] of 23:12:00 [facility] Body weight 2021-08-29 68.04 kg University of 23:12:00 [facility] BMI 2021-08-29 19.79 kg/m2 University of 23:12:00 [facility] Oxygen saturation 2021-08-29 99 /min [facility] in Arterial blood 23:12:00 [facility] by Pulse o[facility]etry [facility] Systolic blood 2021-08-05 92 mm[Hg] [facility] pressure 10:56:00 [facility] Diastolic blood 2021-08-05 75 mm[Hg] [facility] pressure 10:56:00 [facility] Heart rate 2021-08-05 67 /min [facility] of 10:56:00 [facility] Body temperature 2021-08-05 36.22 Tasia [facility] of 10:56:00 [facility] Oxygen saturation 2021-08-05 93 /min [facility] in Arterial blood 10:56:00 [facility] by Pulse o[facility] Respiratory rate 2021-08-05 16 /min University of 06:24:00 [facility] Body height 2021-07-30 185.4 cm University of 09:49:00 [facility] Body weight 2021-07-30 65.772 kg University of 09:49:00 [facility] BMI 2021-07-30 19.13 kg/m2 University of 09:49:00 [facility] Systolic blood 2021-07-26 107 mm[Hg] [facility] pressure 17:32:00 [facility] Diastolic blood 2021-07-26 69 mm[Hg] [facility] pressure 17:32:00 [facility] Heart rate 2021-07-26 70 /min [facility] of 17:32:00 [facility] Body temperature 2021-07-26 36.39 Tasia [facility] of 17:32:00 [facility] Respiratory rate 2021-07-26 16 /min [facility] of 17:32:00 [facility] Oxygen saturation 2021-07-26 96 /min [facility] in Arterial blood 17:32:00 [facility] by Pulse oximetry Branch Body height 2021-07-23 185.4 cm University of 08:40:00 [facility] Body weight 2021-07-23 84.5 kg University of 08:40:00 [facility] BMI 2021-07-23 24.58 kg/m2 University of 08:40:00 [facility] Systolic blood 2021-06-04 95 mm[Hg] [facility] pressure 16:20:00 [facility] Diastolic blood 2021-06-04 60 mm[Hg] [facility] pressure 16:20:00 [facility] Heart rate 2021-06-04 61 /min [facility] of 16:20:00 [facility] Body temperature 2021-06-04 36.17 Tasia [facility] of 16:20:00 [facility] Respiratory rate 2021-06-04 18 /min [facility] of 16:20:00 [facility] Oxygen saturation 2021-06-04 100 /min [facility] in Arterial blood 16:20:00 [facility] by Pulse o[facility] Body weight 2021-06-01 65.772 kg University of 19:00:00 [facility] BMI 2021-06-01 19.13 kg/m2 University of 19:00:00 [facility] Body height 2021-05-31 185.4 cm University of 22:12:00 [facility] Systolic blood 2021-05-21 101 mm[Hg] [facility] pressure 20:21:00 [facility] Diastolic blood 2021-05-21 68 mm[Hg] [facility] pressure 20:21:00 [facility] Heart rate 2021-05-21 74 /min [facility] of 20:21:00 [facility] Body temperature 2021-05-21 36.56 Tasia [facility] of 20:21:00 [facility] Respiratory rate 2021-05-21 18 /min [facility] of 20:21:00 [facility] Oxygen saturation 2021-05-21 99 /min [facility] in Arterial blood 20:21:00 [facility] by Pulse oximetry Branch Body height 2021-05-21 185.4 cm University of 00:15:00 [facility] Body weight 2021-05-21 65.772 kg University of 00:15:00 [facility] BMI 2021-05-21 19.13 kg/m2 University of 00:15:00 [facility] Systolic blood 2021-05-09 101 mm[Hg] [facility] pressure 16:32:00 [facility] Diastolic blood 2021-05-09 70 mm[Hg] [facility] pressure 16:32:00 [facility] Heart rate 2021-05-09 69 /min [facility] of 16:32:00 [facility] Body temperature 2021-05-09 36.72 Tasia [facility] of 16:32:00 [facility] Respiratory rate 2021-05-09 16 /min [facility] of 16:32:00 [facility] Oxygen saturation 2021-05-09 99 /min [facility] in Arterial blood 16:32:00 [facility] by Pulse oximetry Branch Body height 2021-05-08 185.4 cm University of 05:48:00 [facility] Body weight 2021-05-08 80.196 kg University of 05:48:00 [facility] BMI 2021-05-08 23.33 kg/m2 University of 05:48:00 [facility] Heart rate 2020-09-27 89 /min [facility] of 04:25:00 [facility] Respiratory rate 2020-09-27 20 /min [facility] of 04:25:00 [facility] Oxygen saturation 2020-09-27 99 /min [facility] in Arterial blood 04:25:00 [facility] by Pulse oximetry Branch Systolic blood 2020-09-27 103 mm[Hg] [facility] pressure 04:02:00 [facility] Diastolic blood 2020-09-27 78 mm[Hg] [facility] pressure 04:02:00 [facility] Body temperature 2020-09-27 36.72 Tasia [facility] of 04:00:00 [facility] Body weight 2020-09-26 79.379 kg University of 22:35:00 [facility] BMI 2020-09-26 23.09 kg/m2 University of 22:35:00 [facility] Systolic blood 2020-08-24 105 mm[Hg] [facility] pressure 17:24:00 [facility] Diastolic blood 2020-08-24 64 mm[Hg] [facility] pressure 17:24:00 [facility] Heart rate 2020-08-24 83 /min [facility] of 17:24:00 [facility] Body temperature 2020-08-24 36.56 Tasia [facility] of 17:24:00 [facility] Respiratory rate 2020-08-24 16 /min [facility] of 17:24:00 [facility] Oxygen saturation 2020-08-24 98 /min [facility] in Arterial blood 17:24:00 [facility] by Pulse oximetry [place] Body height 2020-08-23 185.4 cm University of 03:19:00 [facility] Body weight 2020-08-23 79.379 kg University of 03:19:00 [facility] BMI 2020-08-23 23.09 kg/m2 University of 03:19:00 [facility] Systolic blood 2020-07-10 126 mm[Hg] [facility] pressure 01:32:00 [facility] Diastolic blood 2020-07-10 67 mm[Hg] [facility] pressure 01:32:00 [facility] Heart rate 2020-07-10 92 /min University of :32:00 [facility] Body temperature 2020-07-10 37.17 Tasia University of :32:00 [facility] Respiratory rate 2020-07-10 16 /min University of :32:00 [facility] Oxygen saturation 2020-07-10 100 /min [facility] in Arterial blood 01:32:00 [facility] by Pulse oximetry [place] Body height 2020-07-09 154.9 cm University of 22:23:00 [facility] Body weight 2020-07-09 68.04 kg University of 22:23:00 [facility] BMI 2020-07-09 28.34 kg/m2 University of 22:23:00 [facility] Systolic blood 2020-06-05 106 mm[Hg] [facility] pressure 15:00:00 [facility] Diastolic blood 2020-06-05 72 mm[Hg] [facility] pressure 15:00:00 [facility] Heart rate 2020-06-05 84 /min [facility] of 15:00:00 [facility] Respiratory rate 2020-06-05 18 /min [facility] of 15:00:00 [facility] Oxygen saturation 2020-06-05 100 /min [facility] in Arterial blood 15:00:00 [facility] by Pulse oximetry [place] Body temperature 2020-06-05 36.61 Tasia [facility] of 14:54:52 [facility] Body weight 2020-06-05 65.772 kg University of 11:48:00 [facility] BMI 2020-06-05 19.13 kg/m2 University of 11:48:00 [facility] Systolic blood 2020-06-04 130 mm[Hg] [facility] pressure 18:30:00 [facility] Diastolic blood 2020-06-04 84 mm[Hg] [facility] pressure 18:30:00 [facility] Heart rate 2020-06-04 72 /min University of 18:30:00 [facility] Body temperature 2020-06-04 36.72 Tasia University of 18:30:00 [facility] Respiratory rate 2020-06-04 16 /min University of 18:30:00 [facility] Oxygen saturation 2020-06-04 98 /min [facility] in Arterial blood 18:30:00 [facility] by Pulse oximetry Branch Systolic blood 2020-05-31 90 mm[Hg] [facility] pressure 19:59:00 [facility] Diastolic blood 2020-05-31 59 mm[Hg] [facility] pressure 19:59:00 [facility] Heart rate 2020-05-31 88 /min University of 19:59:00 [facility] Body temperature 2020-05-31 36.78 Tasia University of 19:59:00 [facility] Respiratory rate 2020-05-31 16 /min University of 19:59:00 [facility] Oxygen saturation 2020-05-31 98 /min [facility] in Arterial blood 19:59:00 [facility] by Pulse o[facility] Body height 2020-05-30 185.4 cm University of 18:29:00 [facility] Body weight 2020-05-30 69.5 kg weighed in bed University of 18:29:00 [facility] BMI 2020-05-30 20.21 kg/m2 University of 18:29:00 [facility] Systolic blood 2020-05-22 100 mm[Hg] [facility] pressure 04:38:00 [facility] Diastolic blood 2020-05-22 71 mm[Hg] [facility] pressure 04:38:00 [facility] Heart rate 2020-05-22 90 /min University of 04:38:00 [facility] Respiratory rate 2020-05-22 18 /min [facility] of 04:38:00 [facility] Oxygen saturation 2020-05-22 97 /min [facility] in Arterial blood 04:38:00 [facility] by Pulse o[facility] Body temperature 2020-05-22 36.83 Tasia [facility] of 02:02:11 [facility] Body height 2020-05-22 185.4 cm University of 01:59:00 [facility] Body weight 2020-05-22 65.772 kg University of 01:59:00 [facility] BMI 2020-05-22 19.13 kg/m2 University of 01:59:00 [facility] Systolic blood 2020-05-20 95 mm[Hg] [facility] pressure 18:33:34 [facility] Diastolic blood 2020-05-20 62 mm[Hg] [facility] f pressure 18:33:34 [facility] Heart rate 2020-05-20 86 /min University of 18:33:34 [facility] Respiratory rate 2020-05-20 20 /min University of 18:33:34 [facility] Oxygen saturation 2020-05-20 98 /min [facility] in Arterial blood 18:33:34 [facility] by Pulse oximetry [facility] Body temperature 2020-05-20 37 Tasia [facility] 12:02:00 [facility] Body weight 2020-05-20 65.8 kg University of 12:02:00 [facility] BMI 2020-05-20 19.14 kg/m2 University of 12:02:00 [facility] Systolic blood 2020-05-20 101 mm[Hg] [facility] pressure 10:58:00 [facility] Diastolic blood 2020-05-20 56 mm[Hg] [facility] pressure 10:58:00 [facility] Heart rate 2020-05-20 79 /min University of 10:58:00 [facility] Body temperature 2020-05-20 37 Tasia [facility] of 10:58:00 [facility] Respiratory rate 2020-05-20 16 /min University of 10:58:00 [facility] Oxygen saturation 2020-05-20 99 /min [facility] in Arterial blood 10:58:00 [facility] by P[facility] o[facility] Body height 2020-05-20 185.4 cm University of 02:36:00 [facility] Body weight 2020-05-20 65.772 kg University of 02:36:00 [facility] BMI 2020-05-20 19.13 kg/m2 University of 02:36:00 [facility] Systolic blood 2020-05-12 93 mm[Hg] [facility] pressure 17:02:00 [facility] Diastolic blood 2020-05-12 61 mm[Hg] [facility] pressure 17:02:00 [facility] Body temperature 2020-05-12 37.06 Tasia [facility] 17:02:00 [facility] Heart rate 2020-05-12 74 /min University of 09:00:00 [facility] Respiratory rate 2020-05-12 18 /min [facility] of 09:00:00 [facility] Oxygen saturation 2020-05-12 95 /min [facility] in Arterial blood 09:00:00 [facility] by P[facility] o[facility] Body height 2020-05-05 185.4 cm University of 09:05:00 [facility] Body weight 2020-05-05 65.772 kg University of 09:05:00 [facility] BMI 2020-05-05 19.13 kg/m2 University of 09:05:00 [facility] Systolic blood 2020-05-03 107 mm[Hg] [facility] pressure 04:30:00 [facility] Diastolic blood 2020-05-03 62 mm[Hg] [facility] pressure 04:30:00 [facility] Heart rate 2020-05-03 105 /min University of 04:30:00 [facility] Body temperature 2020-05-03 37.22 Tasia [facility] of 04:30:00 [facility] Respiratory rate 2020-05-03 14 /min University of 04:30:00 [facility] Body height 2020-05-03 185.4 cm University of 04:30:00 [facility] Body weight 2020-05-03 65.772 kg University of 04:30:00 [facility] BMI 2020-05-03 19.13 kg/m2 University of 04:30:00 [facility] Systolic blood 2020-05-02 105 mm[Hg] [facility] pressure 12:46:00 [facility] Diastolic blood 2020-05-02 57 mm[Hg] [facility] pressure 12:46:00 [facility] Heart rate 2020-05-02 79 /min University of 12:46:00 [facility] Body temperature 2020-05-02 36.28 Tasia [facility] of 12:46:00 [facility] Respiratory rate 2020-05-02 16 /min University of 12:46:00 [facility] Oxygen saturation 2020-05-02 98 /min [facility] in Arterial blood 12:46:00 [facility] by Pulse o[facility] Body height 2020-04-16 185.4 cm University of 20:11:00 [facility] Body weight 2020-04-16 79.379 kg University of 20:11:00 [facility] BMI 2020-04-16 23.09 kg/m2 University of 20:11:00 [facility] Respiratory rate 2020-04-06 12 /min University of 16:20:00 [facility] Systolic blood 2020-03-28 125 mm[Hg] [facility] pressure 16:00:00 [facility] Diastolic blood 2020-03-28 87 mm[Hg] [facility] pressure 16:00:00 [facility] Heart rate 2020-03-28 74 /min University of 16:00:00 [facility] Body temperature 2020-03-28 36.44 Tasia [facility] 16:00:00 [facility] Respiratory rate 2020-03-28 18 /min University of 16:00:00 [facility] Oxygen saturation 2020-03-28 100 /min [facility] of in Arterial blood 16:00:00 [facility] by Pulse o[facility] Body height 2020-03-26 185.4 cm University of 03:49:00 [facility] Body weight 2020-03-26 74.844 kg University of 03:49:00 [facility] BMI 2020-03-26 21.77 kg/m2 University of 03:49:00 [facility] Systolic blood 2020-03-05 107 mm[Hg] [facility] pressure 16:00:00 [facility] Diastolic blood 2020-03-05 67 mm[Hg] [facility] pressure 16:00:00 [facility] Heart rate 2020-03-05 56 /min [facility] of 16:00:00 [facility] Body temperature 2020-03-05 36.5 Tasia [facility] of 16:00:00 [facility] Respiratory rate 2020-03-05 18 /min [facility] of 16:00:00 [facility] Oxygen saturation 2020-03-05 100 /min [facility] in Arterial blood 16:00:00 [facility] by [facility] o[facility] Body height 2020-03-03 185.4 cm University of 05:49:00 [facility] Body weight 2020-03-03 71.668 kg University of 05:49:00 [facility] BMI 2020-03-03 20.85 kg/m2 University of 05:49:00 [facility] Systolic blood 2020-02-27 100 mm[Hg] [facility] pressure 21:12:00 [facility] Diastolic blood 2020-02-27 74 mm[Hg] [facility] pressure 21:12:00 [facility] Heart rate 2020-02-27 90 /min University of 21:12:00 [facility] Body temperature 2020-02-27 35.78 Tasia [facility] of 21:12:00 [facility] Respiratory rate 2020-02-27 19 /min [facility] of 21:12:00 [facility] Oxygen saturation 2020-02-27 99 /min [facility] in Arterial blood 21:12:00 [facility] Body weight 2020-02-26 71.215 kg University of 23:05:00 [facility] BMI 2020-02-26 20.71 kg/m2 University of 23:05:00 [facility] Systolic blood 2020-02-26 132 mm[Hg] [facility] pressure 07:43:00 [facility] Diastolic blood 2020-02-26 71 mm[Hg] [facility] pressure 07:43:00 [facility] Heart rate 2020-02-26 82 /min University of 07:43:00 [facility] Respiratory rate 2020-02-26 18 /min [facility] of 07:43:00 [facility] Oxygen saturation 2020-02-26 100 /min [facility] in Arterial blood 07:43:00 [facility] by P[facility] o[facility] Body temperature 2020-02-26 36.94 Tasia University of 04:57:00 [facility] Body height 2020-02-26 185.4 cm University of 02:30:00 [facility] Body weight 2020-02-26 68.04 kg University of 02:30:00 [facility] BMI 2020-02-26 19.79 kg/m2 University of 02:30:00 [facility] Systolic blood 2020-02-05 100 mm[Hg] University of pressure 16:00:00 [facility] Diastolic blood 2020-02-05 61 mm[Hg] University o f pressure 16:00:00 [facility] Heart rate 2020-02-05 60 /min University of 16:00:00 [facility] Body temperature 2020-02-05 36.67 Tasia University of 16:00:00 [facility] Respiratory rate 2020-02-05 17 /min University of 16:00:00 [facility] Oxygen saturation 2020-02-05 98 /min University of in Arterial blood 16:00:00 [facility] by Pulse oximetry Branch Body height 2020-01-28 185.4 cm University of 23:13:00 [facility] Body weight 2020-01-28 68.04 kg University of 23:13:00 [facility] BMI 2020-01-28 19.79 kg/m2 University of 23:13:00 [facility] Systolic blood 2020-02-05 100 mm[Hg] [facility] pressure 16:00:00 [facility] Diastolic blood 2020-02-05 61 mm[Hg] [facility] pressure 16:00:00 [facility] Heart rate 2020-02-05 60 /min University of 16:00:00 [facility] Body temperature 2020-02-05 36.67 Tasia University of 16:00:00 [facility] Respiratory rate 2020-02-05 17 /min University of 16:00:00 [facility] Oxygen saturation 2020-02-05 98 /min University of in Arterial blood 16:00:00 [facility] by Pulse oximetry Branch Body height 2020-01-28 185.4 cm University of 23:13:00 [facility] Body weight 2020-01-28 68.04 kg University of 23:13:00 [facility] BMI 2020-01-28 19.79 kg/m2 University of 23:13:00 [facility] Systolic blood 2020-01-27 114 mm[Hg] [facility] pressure 00:32:00 [facility] Diastolic blood 2020-01-27 66 mm[Hg] [facility] pressure 00:32:00 [facility] Heart rate 2020-01-27 73 /min University of 00:32:00 [facility] Body temperature 2020-01-27 36.67 Tasia University of 00:32:00 [facility] Respiratory rate 2020-01-27 18 /min University of 00:32:00 [facility] Oxygen saturation 2020-01-27 97 /min University of in Arterial blood 00:32:00 [facility] by Pulse oximetry Branch Body height 2020-01-24 185.4 cm University of 23:55:00 [facility] Body weight 2020-01-24 68.04 kg University of 23:55:00 [facility] BMI 2020-01-24 19.79 kg/m2 University of 23:55:00 [facility] Systolic blood 2020-01-27 114 mm[Hg] [facility] pressure 00:32:00 [facility] Diastolic blood 2020-01-27 66 mm[Hg] [facility] pressure 00:32:00 [facility] Heart rate 2020-01-27 73 /min University of 00:32:00 [facility] Body temperature 2020-01-27 36.67 Tasia [facility] of 00:32:00 [facility] Respiratory rate 2020-01-27 18 /min [facility] of 00:32:00 [facility] Oxygen saturation 2020-01-27 97 /min [facility] in Arterial blood 00:32:00 [place] [facility] by Pulse oximetry Branch Body height 2020-01-24 185.4 cm University of 23:55:00 [facility] Body weight 2020-01-24 68.04 kg University of :55:00 [facility] BMI 2020-01-24 19.79 kg/m2 University of 23:55:00 [facility] Body temperature 2019-12-13 36.72 Tasia [facility] 02:56:16 [facility] Systolic blood 2019-12-13 114 mm[Hg] [facility] pressure 01:57:00 [facility] Diastolic blood 2019-12-13 77 mm[Hg] [facility] pressure 01:57:00 [facility] Heart rate 2019-12-13 75 /min [place] of :57:00 [facility] Respiratory rate 2019-12-13 20 /min [place] of :57:00 [facility] Body height 2019-12-13 185.4 cm [facility] :57:00 [facility] Body weight 2019-12-13 68.04 kg [place] of :57:00 [facility] BMI 2019-12-13 19.79 kg/m2 University of :57:00 [facility] Oxygen saturation 2019-12-13 97 /min University of in Arterial blood 01:57:00 [facility] mariusz by Pulse oximetry Branch Body temperature 2019-12-13 36.72 Tasia [facility] 02:56:16 [facility] Systolic blood 2019-12-13 114 mm[Hg] [facility] pressure 01:57:00 [facility] Diastolic blood 2019-12-13 77 mm[Hg] [facility] pressure 01:57:00 [facility] Heart rate 2019-12-13 75 /min University of :57:00 [facility] Respiratory rate 2019-12-13 20 /min University of :57:00 [facility] Body height 2019-12-13 185.4 cm University of :57:00 [facility] Body weight 2019-12-13 68.04 kg [place] of :57:00 [facility] BMI 2019-12-13 19.79 kg/m2 University of :57:00 [facility] Oxygen saturation 2019-12-13 97 /min [facility] of in Arterial blood 01:57:00 [facility] mariusz by Pulse oximetry Branch Systolic blood 2022-03-13 94 mm[Hg] [facility] pressure 15:33:00 Diastolic blood 2022-03-13 62 mm[Hg] [facility] h pressure 15:33:00 Heart rate 2022-03-13 109 /min [facility] 15:33:00 Body temperature 2022-03-13 36.67 Tasia [facility] 15:33:00 Respiratory rate 2022-03-13 20 /min [facility] 15:33:00 Body height 2022-03-13 185.4 cm [facility] 15:33:00 Body weight 2022-03-13 66.679 kg [facility] 15:33:00 BMI 2022-03-13 19.39 kg/m2 [facility] 15:33:00 Oxygen saturation 2022-03-13 100 /min [facility] Arterial blood 15:33:00 by Pulse oximetry Systolic blood 2022-03-09 107 mm[Hg] [facility] pressure 11:00:00 [facility] Diastolic blood 2022-03-09 66 mm[Hg] [facility] pressure 11:00:00 [facility] Heart rate 2022-03-09 58 /min [facility] 11:00:00 [facility] Body temperature 2022-03-[address] [facility] 11:00:00 [facility] Respiratory rate 2022-03-09 16 /min [facility] 11:00:00 [facility] Oxygen saturation 2022-03-09 100 /min [facility] Jose es in Arterial blood 11:00:00 [facility] nter by Pulse oximetry Body height 2022-03-[address] [facility] 12:05:00 [facility] Body weight 2022-03-[address] [facility] 12:05:00 [facility] BMI 2022-03-06 19.13 kg/m2 [facility] 12:05:00 [facility] Procedures Procedure Date / Time Performing Clinician Source Performed EKG-12 LEAD 2023-03-20 22:24:[address] [facility] LACTIC ACID WHOLE BLOOD 2023-03-20 20:41:00 Shy [facility] CREATINE KINASE 2023-03-20 20:27:[address] [facility] LIPASE 2023-03-20 20:27:[address] [facility] COMP. METABOLIC PANEL 2023-03-20 20:27:00 Shy [facility] ([id number]) Medical Branch ETHANOL 2023-03-20 20:27:[address] [facility] CBC WITH DIFF 2023-03-20 20:27:[address] [facility] EXTERNAL PROVIDER RECORDS 2023-02-12 05:01:00 Doctor Unassigned, [facility] URINE DRUG (IMMUNOASSAY) - 2023-01-28 11:00:00 [facility] COMPREHENSIVE DR[facility]CREEN [facility] 2023-01-28 10:49:00 [facility] BASIC METABOLIC PANEL (NA, 2023-01-28 10:49:00 Kodi Gonzalez ii [facility] K, CL, CO2, GLUCOSE, BUN, Medica l Branch CREATININE, CA) CBC WITH DIFF 2023-01-28 10:49:00 [facility] PHOSPHORUS 2023-01-27 22:43:00 [facility] HEPATIC FUNCTION PANEL 2023-01-27 22:43:00 [facility] ([id number]) (ALB,T.PRO,BILI [facility] T,BU/BC,ALT,AST,ALK PHOS) BASIC METABOLIC PANEL (NA, 2023-01-27 22:43:00 [facility] K, CL, CO2, GLUCOSE, BUN, [facility] CREATININE, CA) CBC WITH DIFF 2023-01-27 22:43:00 [facility] GLYCOSYLATED HEMOGLOBIN 2023-01-27 22:43:00 [facility] (A1C) [facility] URINALYSIS 2023-01-27 02:30:00 Lamont Hilton [facility] BASIC METABOLIC PANEL (NA, 2022-12-07 15:38:00 Robb Flores [facility] K, CL, CO2, GLUCOSE, BUN, [facility]) XR KUB 2022-12-06 02:15:02 Kodi Gonzalez [facility] ILEOSTOMY TAKEDOWN 2022-12-04 17:34:00 [facility] ANASTOMOSIS BOWEL 2022-12-04 17:34:00 Phatak, [facility] COLONOSCOPY 2022-12-04 17:34:00 Phatak, [facility] ILEOSTOMY TAKEDOWN 2022-12-04 17:34:00 [facility], [facility] ANASTOMOSIS BOWEL 2022-12-04 17:34:00 Phatak, [facility] COLONOSCOPY 2022-12-04 17:34:00 Phatak, [facility] MAGNESIUM 2022-12-04 10:19:00 Gayatri Pyle [facility] BASIC METABOLIC PANEL (NA, 2022-12-04 10:19:00 Gayatri Pyle [facility] K, CL, CO2, GLUCOSE, BUN, Medica l Branch CREATININE, CA) CBC WITH DIFF 2022-12-04 10:19:00 Gayatri Pyle [facility] PROTHROMBIN TIME / INR 2022-12-04 10:19:00 Gayatri Pyle [facility] ACTIVATED PARTIAL THRMPLAS 2022-12-04 10:19:00 Gayatri Pyle [facility] MAGNESIUM 2022-12-04 10:19:00 Gayatri Pyle [facility] BASIC METABOLIC PANEL (NA, 2022-12-04 10:19:00 Gayatri Pyle [facility] K, CL, CO2, GLUCOSE, BUN, Medica l Branch CREATININE, CA) CBC WITH DIFF 2022-12-04 10:19:00 Gayatri Pyle [facility] PROTHROMBIN TIME / INR 2022-12-04 10:19:00 Gayatri Pyle [facility] ACTIVATED PARTIAL THRMPLAS 2022-12-04 10:19:00 Gayatri Pyle [facility] MAGNESIUM 2022-12-03 10:42:00 Gayatri Pyle [facility] BASIC METABOLIC PANEL (NA, 2022-12-03 10:42:00 Gayatri Pyle [facility] K, CL, CO2, GLUCOSE, BUN, Medica l Branch CREATININE, CA) CBC WITH DIFF 2022-12-03 10:42:00 Gayatri Pyle [facility] MAGNESIUM 2022-12-03 10:42:00 Gayatri Pyle [facility] BASIC METABOLIC PANEL (NA, 2022-12-03 10:42:00 Gayatri Pyle [facility] K, CL, CO2, GLUCOSE, BUN, Medica l Branch CREATININE, CA) CBC WITH DIFF 2022-12-03 10:42:00 Gayatri Pyle [facility] HB ABO GROUPING 2022-12-02 21:21:00 Mark [facility] HB ABO GROUPING 2022-12-02 21:21:00 Mark [facility] PHOSPHORUS 2022-12-02 09:47:00 Gayatri Pyle [facility] MAGNESIUM 2022-12-02 09:47:00 [facility] BASIC METABOLIC PANEL (NA, 2022-12-02 09:47:00 Lisa Jules [facility] K, CL, CO2, GLUCOSE, BUN, C. Medica l Branch CREATININE, CA) PHOSPHORUS 2022-12-02 09:47:00 Gayatri [facility] MAGNESIUM 2022-12-02 09:47:00 [facility] BASIC METABOLIC PANEL (NA, 2022-12-02 09:47:00 Lisa Jules [facility] K, CL, CO2, GLUCOSE, BUN, C. Medica l Branch CREATININE, CA) TRANSTHORACIC ECHO (TTE) 2022-12-01 14:48:00 Kristofer Vasquez [facility] W/ CONTRAST Medical [facility] TRANSTHORACIC ECHO (TTE) 2022-12-01 14:48:00 Kristofer Vasquez [facility] COMPLETE W/ CONTRAST Medical [facility] MAGNESIUM 2022-12-01 10:03:00 Gayatri P[facility] BASIC METABOLIC PANEL (NA, 2022-12-01 10:03:00 Gayatri Pyle [facility] K, CL, CO2, GLUCOSE, BUN, Medica l Branch CREATININE, CA) CBC WITH DIFF 2022-12-01 10:03:00 Gayatri Pyle [facility] MAGNESIUM 2022-12-01 10:03:00 Gayatri Pyle [facility] BASIC METABOLIC PANEL (NA, 2022-12-01 10:03:00 Gayatri Pyle [facility] K, CL, CO2, GLUCOSE, BUN, Medica l Branch CREATININE, CA) CBC WITH DIFF 2022-12-01 10:03:00 Gayatri [facility] MAGNESIUM 2022-11-30 09:48:00 [facility] BASIC METABOLIC PANEL (NA, 2022-11-30 09:48:00 Lisa Jules [facility] K, CL, CO2, GLUCOSE, BUN, C. Medica l Branch CREATININE, CA) CBC WITH DIFF 2022-11-30 09:48:00 Dh[facility] MAGNESIUM 2022-11-30 09:48:00 [facility] BASIC METABOLIC PANEL (NA, 2022-11-30 09:48:00 Lisa Jules [facility] K, CL, CO2, GLUCOSE, BUN, C. Medica l Branch CREATININE, CA) CBC WITH DIFF 2022-11-30 09:48:00 Dhara [facility] LACTIC ACID WHOLE BLOOD 2022-11-29 13:40:[address] Dos[address] [facility] LACTIC ACID WHOLE BLOOD 2022-11-29 13:40:00 Dosjarvis [facility] MAGNESIUM 2022-11-29 08:43:00 Gayatri [facility] BASIC METABOLIC PANEL (NA, 2022-11-29 08:43:00 PyleGayatri hatfield [facility] K, CL, CO2, GLUCOSE, BUN, Medica l Branch CREATININE, CA) CBC WITH DIFF 2022-11-29 08:43:00 Gayatri [facility] MAGNESIUM 2022-11-29 08:43:00 PyleGayatri [facility] BASIC METABOLIC PANEL (NA, 2022-11-29 08:43:00 Pyle, Gayatri pope [facility] K, CL, CO2, GLUCOSE, BUN, Medica l Branch CREATININE, CA) CBC WITH DIFF 2022-11-29 08:43:00 Gayatri Pyle [facility] MAGNESIUM 2022-11-28 21:15:00 PyleGayatri [facility] BASIC METABOLIC PANEL (NA, 2022-11-28 21:15:00 PyleGayatri hatfield [facility] K, CL, CO2, GLUCOSE, BUN, Medica l Branch CREATININE, CA) CBC WITH DIFF 2022-11-28 21:15:00 Gayatri P[facility] MAGNESIUM 2022-11-28 21:15:00 PyleGayatri [facility] BASIC METABOLIC PANEL (NA, 2022-11-28 21:15:00 PyleGayatri [place]field heidi [facility] K, CL, CO2, GLUCOSE, BUN, Medica l Branch CREATININE, CA) CBC WITH DIFF 2022-11-28 21:15:00 Gayatri [facility] PREALBUMIN, SERUM 2022-11-28 07:25:00 Grant Cheema [facility] ALBUMIN 2022-11-28 07:25:00 Grant Cheema [facility] MAGNESIUM 2022-11-28 07:25:00 Varsha Meza [facility] Christos Morin [facility] BASIC METABOLIC PANEL (NA, 2022-11-28 07:25:00 Varsha Meza [facility] K, CL, CO2, GLUCOSE, BUN, Christos Morin [facility] CREATININE, CA) PREALBUMIN, SERUM 2022-11-28 07:25:00 Grant Cheema [facility] ALBUMIN 2022-11-28 07:25:00 Grant Cheema [facility] MAGNESIUM 2022-11-28 07:25:00 [facility] BASIC METABOLIC PANEL (NA, 2022-11-28 07:25:00 Varsha Meza [facility] K, CL, CO2, GLUCOSE, BUN, Christos Morin [facility] CREATININE, CA) LACTIC ACID WHOLE BLOOD 2022-11-27 20:46:00 Varsha Meza [facility] LACTIC ACID WHOLE BLOOD 2022-11-27 20:46:00 Varsha Meza [facility] BASIC METABOLIC PANEL (NA, 2022-11-27 18:36:00 [facility], CL, CO2, GLUCOSE, BUN, [facility], [facility]) BASIC METABOLIC PANEL (NA, 2022-11-27 18:36:00 Dwain Junior [facility] K, CL, CO2, GLUCOSE, BUN, [facility] CREATININE, CA) URINALYSIS 2022-11-27 15:58:00 Dwain [facility] CREATININE, URINE RANDOM 2022-11-27 15:58:[address] [facility] UREA NITROGEN, URINE 2022-11-27 15:58:00 Varsha Meza [facility] SODIUM, URINE RANDOM 2022-11-27 15:58:00 Varsha Meza [facility] URINALYSIS 2022-11-27 15:58:00 [facility] RANDOM 2022-11-27 15:58:[address] [facility] UREA NITROGEN, URINE 2022-11-27 15:58:00 Renetta Mezaa [facility] RANDOM [facility] SODIUM, URINE RANDOM 2022-11-27 15:58:00 Abbeau-Renetta Victora [facility] [place] HB ECG ROUTINE & RHYTHM 2022-11-27 14:21:43 Dwain Junior [facility] HB ECG ROUTINE & RHYTHM 2022-11-27 14:21:43 Dwain Junior [facility] LACTIC ACID WHOLE BLOOD 2022-11-27 14:01:00 Dwain Junior [facility] LACTIC ACID WHOLE BLOOD 2022-11-27 14:01:00 Dwain Junior [facility] BLOOD CULTURE SCREEN 2022-11-27 14:00:00 Dwain Junior [facility] PHOSPHORUS 2022-11-27 14:00:00 Dwain Junior [facility] MAGNESIUM 2022-11-27 14:00:00 Dwain Junior [facility] TROPONIN I 2022-11-27 14:00:00 Dwain [facility] COMP. METABOLIC PANEL 2022-11-27 14:00:00 Dwain Junior [facility] ([id number]) [facility] CBC WITH DIFF 2022-11-27 14:00:00 Dwain Junior [facility] BLOOD CULTURE SCREEN 2022-11-27 14:00:00 Dwain Junior [facility] PHOSPHORUS 2022-11-27 14:00:00 Dwain Junior [facility] MAGNESIUM 2022-11-27 14:00:00 Dwain Junior [facility] TROPONIN I 2022-11-27 14:00:00 Dwain Junior [facility] COMP. METABOLIC PANEL 2022-11-27 14:00:00 Dwain Junior [facility] ([id number]) [facility] CBC WITH DIFF 2022-11-27 14:00:00 Dwain [facility] XR CHEST 1 VW 2022-11-27 13:42:00 Marv Dwain [facility] XR CHEST 1 VW 2022-11-27 13:42:00 Marv Dwain [facility] HOSPITAL ADMISSION 2022-11-27 05:01:00 Doctor Unassigned, [facility] HOSPITAL ADMISSION 2022-11-27 05:01:00 Doctor Unassigned, [facility] MAGNESIUM 2022-11-22 09:24:00 [facility] BASIC METABOLIC PANEL (NA, 2022-11-22 09:24:00 [facility] K, CL, CO2, GLUCOSE, BUN, [facility] CREATININE, CA) CBC WITH DIFF 2022-11-22 09:24:00 [facility] 2022-11-21 05:09:00 Tristen [facility] BASIC METABOLIC PANEL (NA, 2022-11-21 05:09:00 Micki Ramon [facility] K, CL, CO2, GLUCOSE, BUN, Medica l Branch CREATININE, CA) CBC WITH DIFF 2022-11-21 05:09:00 [facility] + LACTIC ACID 2022-11-21 05:07:00 Dana Cox Un [facility] LACTIC ACID WHOLE BLOOD 2022-11-20 14:51:00 Wilfred Stringer [facility] LACTIC ACID WHOLE BLOOD 2022-11-20 11:33:00 Wilfred Stringer [facility] ALBUMIN 2022-11-20 09:45:00 [facility]UM 2022-11-20 09:45:00 [facility] CORTISOL AM 2022-11-20 09:45:00 Zahraa Stringernathan [facility] THYROID STIMULATING 2022-11-20 09:45:00 [facility] BASIC METABOLIC PANEL (NA, 2022-11-20 09:45:00 [facility], [facility], CO2, GLUCOSE, BUN, Medica [facility] [place] CREATININE, CA) CBC WITH DIFF 2022-11-20 09:45:00 [facility] FREE T4 2022-11-20 00:40:00 Tristen [facility] BASIC METABOLIC PANEL (NA, 2022-11-20 00:40:00 [facility] K, CL, CO2, GLUCOSE, BUN, Medica l [place] CREATININE, CA) OSMOLALITY URINE 2022-11-19 23:34:00 Tristen [facility] CREATININE, URINE RANDOM 2022-11-19 23:34:00 Wilfred Stringer [facility] SODIUM, URINE RANDOM 2022-11-19 23:34:00 Wilfred Stringer [facility] HB ECG ROUTINE & RHYTHM 2022-11-19 23:15:08 Wilfred Stringer [facility] BASIC METABOLIC PANEL (NA, 2022-11-19 20:05:00 [facility], CL, CO2, GLUCOSE, BUN, [facility] CREATININE, CA) MAGNESIUM 2022-11-19 15:58:00 Constantin Perez [facility] COMP. METABOLIC PANEL 2022-11-19 15:58:00 Constantin Perez [facility] ([id number]) Medical Branch ETHANOL 2022-11-19 15:58:00 Constantin Perez [facility] CBC WITH DIFF 2022-11-19 15:58:00 Constantin Perez [facility] COVID-19 (ID NOW RAPID 2022-11-19 15:25:00 Constantin Perez [facility] TESTING) Medical Branch LAB ONLY COVID 2022-11-19 15:25:00 Constantin Perez [facility] MAGNESIUM 2022-11-06 09:44:00 Shanell José [facility] BASIC METABOLIC PANEL (NA, 2022-11-06 09:44:00 Shanell José [facility] [place] K, CL, CO2, GLUCOSE, BUN, Medica l Branch CREATININE, CA) CBC WITH DIFF 2022-11-06 09:44:00 Shanell José [facility] CORTISOL AM 2022-11-05 13:40:00 Shanell José [facility] BASIC METABOLIC PANEL (NA, 2022-11-05 09:49:00 Shanell José [employer] [place] K, CL, CO2, GLUCOSE, BUN, Medica l Branch CREATININE, CA) CBC WITH DIFF 2022-11-05 09:49:00 Shanell José [facility] BASIC METABOLIC PANEL (NA, 2022-11-05 03:00:00 Shanell José [employer] [place] K, CL, CO2, GLUCOSE, BUN, Medica l Branch CREATININE, CA) SODIUM 2022-11-04 18:26:00 Shanell José [facility] BASIC METABOLIC PANEL (NA, 2022-11-04 18:26:00 Micki Ramon [facility] [place] K, CL, CO2, GLUCOSE, BUN, Medica l Branch CREATININE, CA) OSMOLALITY, SERUM OR 2022-11-04 05:56:00 Shanell José [facility] MAGNESIUM 2022-11-04 05:55:00 Shanell José [facility] BASIC METABOLIC PANEL (NA, 2022-11-04 05:55:00 Shanell José [facility] [place] K, CL, CO2, GLUCOSE, BUN, Medica l Branch CREATININE, CA) CBC WITH DIFF 2022-11-04 05:55:00 Shanell José [facility] POTASSIUM URINE 2022-11-04 05:30:00 Shanell José [facility] SODIUM URINE 2022-11-04 05:30:00 Shanell José [facility] VITAMIN B12, LEVEL 2022-11-03 21:13:00 Shanell José [facility] VITAMIN D, 25-OH 2022-11-03 21:12:00 Shanell José [facility] MAGNESIUM 2022-11-03 10:47:00 Shanell José [facility] BASIC METABOLIC PANEL (NA, 2022-11-03 10:47:00 Shanell José [facility] K, CL, CO2, GLUCOSE, BUN, Medica l Branch CREATININE, CA) CBC WITH DIFF 2022-11-03 10:47:00 Shanell José [facility] OSMOLALITY URINE 2022-11-03 05:34:00 Shanell José [facility] URINALYSIS 2022-11-03 05:34:00 Shanell José [facility] URINE CULTURE 2022-11-03 05:34:00 Shanell José [facility] CREATININE, URINE RANDOM 2022-11-03 05:34:00 Shanell José [facility] UREA NITROGEN, URINE 2022-11-03 05:34:00 Shanell José [facility] SODIUM 2022-11-03 04:19:00 Shanell José [facility] BLOOD CULTURE SCREEN 2022-11-03 04:18:00 Shanell [facility] US RETROPERITONEAL LIMITED 2022-11-02 23:30:00 Shanell José [facility] LACTIC ACID WHOLE BLOOD 2022-11-02 22:56:00 Shanell José [facility] CLOSTRIDIUM DIFFICILE 2022-11-02 21:21:00 Shanell José [facility] FECAL PATHOGENS BY PCR 2022-11-02 21:21:00 JoséShanell boss [facility] BLOOD CULTURE SCREEN 2022-11-02 20:59:00 Shanell [facility] MAGNESIUM 2022-11-02 20:57:00 Shanell José [facility] COMP. METABOLIC PANEL 2022-11-02 20:57:00 Shanell José [facility] ([id number]) [facility] CBC WITHOUT DIFF 2022-11-02 20:57:00 Shanell José [facility] PHOSPHORUS 2022-11-02 18:28:00 Shanell José [facility] FREE T4 2022-11-02 18:28:00 Shanell José [facility] THYROID STIMULATING 2022-11-02 18:28:00 Shanell José [facility] HORMONE [facility] HEPATIC FUNCTION PANEL 2022-11-02 18:28:00 Shanell José [facility] ([id number]) (ALB,T.PRO,BILI [facility] T,BU/BC,ALT,AST,ALK PHOS) LACTIC ACID WHOLE BLOOD 2022-11-02 17:29:00 Danay Gordillo [facility] HB ECG ROUTINE & RHYTHM 2022-11-02 13:58:35 Danay Gordillo [facility] STRIP [facility] LIPASE 2022-11-02 13:16:00 Danay Gordillo [facility] MAGNESIUM 2022-11-02 13:16:00 Danay Gordillo [facility] TROPONIN I 2022-11-02 13:16:00 Danay Gordillo [facility] COMP. METABOLIC PANEL 2022-11-02 13:16:[address] [facility] ([id number]) [facility] CBC WITH DIFF 2022-11-02 13:16:00 Danay Gordillo [facility] GALV ONLY - INFLUENZA A B 2022-11-02 13:16:00 [facility] COVID-19 (ID NOW RAPID 2022-11-02 13:16:00 Danay Gordillo [facility] TESTING) Medical Branch LAB ONLY COVID 2022-11-02 13:16:00 Danay Gordillo [facility] INTERPRETATION [facility] Branch HOSPITAL ADMISSION 2022-11-02 06:01:00 Doctor Unassigned, [facility] [place] [facility] ABDOMEN PELVIS W 2022-10-20 03:22:00 Alvarez Austin [facility] CONTRAST Medical Branch LIPASE 2022-10-20 01:43:00 Alvarez [facility] MAGNESIUM 2022-10-20 01:43:00 Alvarez [facility] COMP. METABOLIC PANEL 2022-10-20 01:43:00 Alvarez Austin [facility] ([id number]) [facility] CBC WITH DIFF 2022-10-20 01:43:00 Alvarez [facility] CONSENT/REFUSAL FOR 2022-10-20 01:10:04 Doctor Unassigned, [facility] DIAGNOSIS AND TREATMENT [facility] PHOSPHORUS 2022-05-21 09:31:00 Adriane [facility] MAGNESIUM 2022-05-21 09:31:00 Adriane [facility] BASIC METABOLIC PANEL (NA, 2022-05-21 09:31:[facility], CL, CO2, GLUCOSE, BUN, Medica l Branch CREATININE, CA) CBC WITH DIFF 2022-05-21 09:31:00 Adriane [facility] INTACT PTH CALCIUM GROUP 2022-05-20 18:29:00 Douglas Arizmendi U [facility] RENAL ARTERY DUPLEX - BY 2022-05-20 17:58:00 Douglas Arizmendi U [facility] VASCULAR LAB [facility] LACTIC ACID WHOLE BLOOD 2022-05-20 10:43:00 Eros Rios [facility] CREATINE KINASE 2022-05-20 08:36:00 Eros Rios [facility] URIC ACID 2022-05-20 08:36:00 Eros Rios [facility] MAGNESIUM 2022-05-20 08:36:00 Patel Rangel [facility] FERRITIN SERUM 2022-05-20 08:36:00 Blanca christophe [facility] CORTISOL AM 2022-05-20 08:36:00 Blanca christophe [facility] OSMOLALITY, SERUM OR 2022-05-20 08:36:00 Blanca christophe [facility] PLASMA [facility] OSMOLALITY URINE 2022-05-20 08:36:00 Blanca [facility] AMMONIA, PLASMA 2022-05-20 08:36:00 Blanca christophe [facility] VITAMIN B12, LEVEL 2022-05-20 08:36:00 Blanca christophe [facility] THYROID STIMULATING 2022-05-20 08:36:00 Blanca christophe [facility] HORMONE [facility] Branch COMP. METABOLIC PANEL 2022-05-20 08:36:00 Eros Rios [facility] ([id number]) [facility] [place] LIPID PANEL ([id number])(TOTAL 2022-05-20 08:36:00 Eros Rios [facility] CHOLESTEROL, [facility] TRIGLYCERIDES, HDL) IRON PANEL 2022-05-20 08:36:00 Eros Rios [facility] ETHANOL 2022-05-20 08:36:00 Blanca christophe [facility] URINE DRUG (IMMUNOASSAY) - 2022-05-20 08:36:00 Eros Rios [facility] COMPREHENSIVE DRUG SCREEN Medica l Branch SEDIMENTATION RATE 2022-05-20 08:36:00 Blanca christophe [facility] CBC WITH DIFF 2022-05-20 08:36:00 Blanca christophe [facility] GLYCOSYLATED HEMOGLOBIN 2022-05-20 08:36:00 Eros Rios [facility] (A1C) [facility] PROTHROMBIN TIME / INR 2022-05-20 08:36:00 Eros Rios [facility] URINALYSIS 2022-05-20 08:36:00 Eros Rios [facility] OCCULT (GUAIAC) BLOOD 2022-05-20 08:36:00 Eros Rios [facility] URINE CULTURE 2022-05-20 08:36:00 Eros Rios [facility] CLOSTRIDIUM DIFFICILE 2022-05-20 08:36:00 Eros Rios [facility] TOXIN [facility] VITAMIN D, 25-OH 2022-05-20 08:36:00 Blanca christophe [facility] UREA NITROGEN, URINE 2022-05-20 08:36:00 Eros Rios [facility] SODIUM, URINE RANDOM 2022-05-20 08:36:00 Blanca christophe [facility] PROTEIN CREAT RATIO URINE 2022-05-20 08:36:00 Eros Rios [facility] AC VBG + LACTIC ACID 2022-05-20 08:36:00 Eros Rios [facility] FECAL PATHOGENS BY PCR 2022-05-20 08:36:00 Eros Rios [facility] CT ABDOMEN PELVIS W 2022-05-20 03:23:04 Joel Baez [facility] CONTRAST [facility] COVID-19 (ID NOW RAPID 2022-05-20 01:44:00 Joel Baez [facility] TESTING) Medical Branch LAB ONLY COVID 2022-05-20 01:44:00 Joel Baez [facility] INTERPRETATION [facility] LACTIC ACID WHOLE BLOOD 2022-05-20 01:42:00 Joel Baez [facility] LIPASE 2022-05-20 01:30:00 Joel Baez [facility] COMP. METABOLIC PANEL 2022-05-20 01:30:00 Joel Baez [facility] ([id number]) [facility] CBC WITH DIFF 2022-05-20 01:30:00 Joel Baez [facility] NOTICE OF PRIVACY 2022-05-19 23:54:00 Doctor Unassigned, [facility] PRACTICES [facility] CONSENT/REFUSAL FOR 2022-05-19 23:53:24 Doctor Unassigned, [facility] DIAGNOSIS AND TREATMENT [facility] COMP. METABOLIC PANEL 2022-04-10 03:54:00 Alvarez Austin [facility] ([id number]) Medical Branch CBC WITH DIFF 2022-04-10 03:49:00 Alvarez [facility] LIPASE 2022-04-10 03:07:00 Alvarez [facility] XR CHEST 2 VW 2022-04-10 02:59:18 Alvarez [facility] COVID-19 (ID NOW RAPID 2022-04-10 02:43:00 Alvarez Austin [facility] TESTING) Medical Branch PHOSPHORUS 2022-04-08 10:26:00 [facility] 2022-04-08 10:26:00 [facility] BASIC METABOLIC PANEL (NA, 2022-04-08 10:26:00 [facility] K, CL, CO2, GLUCOSE, BUN, Medica l Branch CREATININE, CA) CBC WITH DIFF 2022-04-08 10:26:00 [facility] PHOS[facility]US 2022-04-07 09:45:00 [facility]a [facility] MAGNESIUM 2022-04-07 09:45:00 [facility]a [facility] BASIC METABOLIC PANEL (NA, 2022-04-07 09:45:00 Don Medrano [facility] K, CL, CO2, GLUCOSE, BUN, Medica l Branch CREATININE, CA) LACTIC ACID WHOLE BLOOD 2022-04-06 09:05:00 Rolf Lemus [facility] MAGNESIUM 2022-04-06 09:04:00 [facility] BASIC METABOLIC PANEL (NA, 2022-04-06 09:04:00 Rolf Lemus [facility] K, CL, CO2, GLUCOSE, BUN, Medica l Branch CREATININE, CA) CBC WITH DIFF 2022-04-06 09:04:00 Rolf Lemus [facility] BASIC METABOLIC PANEL (NA, 2022-04-05 08:12:00 Agatha Noonan [facility] K, CL, CO2, GLUCOSE, BUN, Medica l Branch CREATININE, CA) ACUTE CARE VENOUS BLOOD 2022-04-05 08:12:00 Amirah [facility] CBC WITH DIFF 2022-04-05 08:12:00 Shaista [facility] BASIC METABOLIC PANEL (NA, 2022-04-04 09:03:00 Rolf Lemus [facility] K, CL, CO2, GLUCOSE, BUN, Medica l Branch CREATININE, CA) RETROPERITONEAL LIMITED 2022-04-03 23:10:49 Octavio Macario [facility] ACUTE CARE VENOUS BLOOD 2022-04-03 18:33:00 Octavio Macario [facility] OSMOLALITY URINE 2022-04-03 17:59:00 Amirah [facility] BASIC METABOLIC PANEL (NA, 2022-04-03 17:59:00 Octavio Macario [facility] K, CL, CO2, GLUCOSE, BUN, Medica l Branch CREATININE, CA) CREATININE, URINE RANDOM 2022-04-03 17:59:00 Octavio Macario [facility] POTASSIUM, URINE RANDOM 2022-04-03 17:59:00 Octavio Macario [facility] SODIUM, URINE RANDOM 2022-04-03 17:59:00 Octavio Macario [facility] MAGNESIUM 2022-04-03 09:29:00 Amirah Octavio [facility] OSMOLALITY, SERUM OR 2022-04-03 09:29:00 Octavio aMcario [facility] BASIC METABOLIC PANEL (NA, 2022-04-03 09:29:00 Juventino Thomas [facility] K, CL, CO2, GLUCOSE, BUN, Medica l Branch CREATININE, CA) CBC WITH DIFF 2022-04-03 09:29:00 [facility] CLO[facility]FFICILE 2022-04-03 03:44:00 Zahraa Thomasshua [facility] TOXIN [facility] LACTIC ACID WHOLE BLOOD 2022-04-03 03:38:00 [facility] LACTIC ACID WHOLE BLOOD 2022-04-03 00:07:00 [facility] URINE CULTURE 2022-04-02 22:39:00 Rekha Sheehan [facility] CT ABDOMEN PELVIS WO 2022-04-02 21:07:00 Rekha Sheehan [facility] CONTRAST [facility] Branch LIPASE 2022-04-02 20:00:00 Aguila [facility] TROPONIN I 2022-04-02 20:00:00 Aguila [facility] HEPATIC FUNCTION PANEL 2022-04-02 20:00:00 Rekha Sheehan [facility] ([id number]) (ALB,T.PRO,BILI Medical Branch T,BU/BC,ALT,AST,ALK PHOS) BASIC METABOLIC PANEL (NA, 2022-04-02 20:00:00 Rekha Sheehan [facility] K, CL, CO2, GLUCOSE, BUN, Medica l Branch CREATININE, CA) URINALYSIS 2022-04-02 20:00:00 Rekha Sheehan [facility] CBC WITH DIFF 2022-04-02 18:20:00 Aguila [facility] COVID-19 (ID NOW RAPID 2022-04-02 18:20:00 Rekha Sheehan [facility] TESTING) Medical Branch LAB ONLY COVID 2022-04-02 18:20:00 Aguila [facility] INTERPRETATION [facility] XR CHEST 2 VW 2022-04-02 17:29:13 Aguila Rekha [facility] HB ECG ROUTINE & RHYTHM 2022-04-02 16:32:43 Rekha Sheehan [facility] CONSENT/REFUSAL FOR 2022-04-02 16:29:46 Doctor Unassigned, [facility] DIAGNOSIS AND TREATMENT [facility] BASIC METABOLIC PANEL 2022-03-07 05:51:00 Shiela [facility] HEPATIC FUNCTION PANEL 2022-03-07 05:51:00 Shiela [facility] CBC W/PLT COUNT & AUTO 2022-03-07 05:51:00 Shiela [facility] CBC W/PLT COUNT & AUTO 2022-03-07 05:51:00 Shiela [facility] US RENAL COMPLETE 2022-03-06 18:23:00 [facility] SARS-COV2/RT-PCR (HS & 2022-03-06 17:36:00 [facility] REF LABS) Center TSH/FREE T4 IF INDICATED 2022-03-06 14:18:00 [facility] T[facility], FREE 2022-03-06 14:18:00 Aryan Tello [facility] ED ECG INTERPRETATION 2022-03-06 13:48:12 Aryan Tello [facility] XR CHEST 1 VIEW PORTABLE / 2022-03-06 13:42:00 Aryan Tello [facility] BEDSIDE [facility] B-TYPE NATRIURETIC FACTOR 2022-03-06 13:23:00 Aryan Tello [facility] (BNP) [facility] CBC W/PLT COUNT & AUTO 2022-03-06 13:23:00 Aryan Tello [facility] DIFFERENTIAL [facility] COMPREHENSIVE METABOLIC 2022-03-06 13:23:00 Aryan Tello [facility] PANEL [facility] HIGH SENSITIVITY TROPONIN 2022-03-06 13:23:00 Aryan Tello [facility] MAGNESIUM 2022-03-06 13:23:00 Aryan Tello [facility] PHOSPHORUS 2022-03-06 13:23:00 Aryan Tello [facility] LACTIC ACID, VENOUS 2022-03-06 13:23:00 Aryan Tello [facility] CREATINE KINASE (CK) 2022-03-06 13:23:00 Aryan Tello [facility] CBC W/PLT COUNT & AUTO 2022-03-06 13:23:00 Aryan Tello [facility] S [facility] DIFFERENTIAL [facility] ECG 12-LEAD 2022-03-06 12:12:56 Unknown, Hl7 Doctor [facility] ECG 12-LEAD 2022-03-06 12:12:56 Unknown, Hl7 Doctor [facility] EKG-SCANNED 2022-03-06 00:00:00 Provider [facility] BASIC METABOLIC PANEL 2022-02-20 05:10:00 Rufino Lazaro [facility] CBC (WITHOUT DIFFERENTIAL) 2022-02-20 05:10:00 Rufino Lazaro [facility] MAGNESIUM 2022-02-20 05:10:00 Rufino Lazaro [facility] h PHOSPHORUS 2022-02-20 05:10:00 Rufino Lazaro [facility] h CBC (WITHOUT DIFFERENTIAL) 2022-02-20 05:10:00 Rufino Lazaro [facility] BASIC METABOLIC PANEL 2022-02-20 05:10:00 Rufino Lazaro [facility] MAGNESIUM 2022-02-20 05:10:00 Rufino Lazaro [facility] h PHOSPHORUS 2022-02-20 05:10:00 Rufino Lazaro [facility] h INFUSION PUMP 2022-02-19 19:03:50 Rufino Lazaro [facility] h INFUSION PUMP 2022-02-19 19:03:50 Rufino Lazaro [facility] h CBC/DIFF 2022-02-19 06:35:00 Fannie Blake PHOSPHORUS 2022-02-19 06:35:00 Fannie Blake COMPREHENSIVE METABOLIC 2022-02-19 06:35:00 F[facility] PANEL CBC 2022-02-19 06:35:00 Fannie Blake COMPREHENSIVE METABOLIC 2022-02-19 06:35:00 [facility]/DIFF 2022-02-19 06:35:00 Fannie Blake alth PHOSPHORUS 2022-02-19 06:35:00 Fannie Blake Misael alth CBC 2022-02-19 06:35:00 Fannie Blake Misael alth URINALYSIS W/REFLEX TO 2022-02-19 00:34:[address] [facility] URINE CULTURE URINALYSIS 2022-02-19 00:34:00 [facility] COLLE[facility] 2022-02-19 00:34:00 Philip Chadd [facility] [employer] KIT URINALYSIS W/REFLEX TO 2022-02-19 00:34:[address] [facility] URINE CULTURE URINALYSIS 2022-02-19 00:34:00 Narendra Palaciosard [facility] URINE CULTURE COLLECTION 2022-02-19 00:34:00 [facility] Chadd [facility] KIT CORONAVIRUS, COVID-19, OLENA 2022-02-18 19:00:00 [facility] SARS-COV-2, FLU A/B, RSV 2022-02-18 19:00:00 [facility], FLU A/B, RSV 2022-02-18 19:00:00 [facility] Chadd [facility] CORONAVIRUS, COVID-19, OLENA 2022-02-18 19:00:00 [facility] XRAY CHEST 1 VIEW 2022-02-18 15:23:00 Roz Scales [facility] XRAY CHEST 1 VIEW 2022-02-18 15:23:00 Roz Scales lt CONSULT CLINICAL CASE 2022-02-18 14:50:50 Roz Scales Health MANAGEMENT (RN/SW) CONSULT CLINICAL CASE 2022-02-18 14:50:50 Roz Scales [facility] MANAGEMENT (RN/SW) BASIC METABOLIC PANEL 2022-02-18 14:16:00 Susana Cooley [facility] CBC/DIFF 2022-02-18 14:16:00 [facility] CREATINE KINASE (CK) 2022-02-18 14:16:00 AlbabSusana [facility] MAGNESIUM 2022-02-18 14:16:00 Albab, Susana [facility] PHOSPHORUS 2022-02-18 14:16:00 Albab, Susana [facility] CBC 2022-02-18 14:16:00 Albab, Susana [facility] CBC/DIFF 2022-02-18 14:16:00 Albab, Susana [facility] BASIC METABOLIC PANEL 2022-02-18 14:16:00 AlbabSusana [facility] MAGNESIUM 2022-02-18 14:16:00 [facility] PHOSPHORUS 2022-02-18 14:16:00 Albab, Susana [facility] CREATINE KINASE (CK) 2022-02-18 14:16:00 AlbabSusana [facility] CBC 2022-02-18 14:16:00 [facility] BASIC METABOLIC PANEL 2022-02-11 03:34:00 [facility] (WITHOUT [facility] 2022-02-11 03:34:00 [place], [facility] MAGNESIUM 2022-02-11 03:34:00 [place], Teresa [facility] PHOSPHORUS 2022-02-11 03:34:00 [place], Teresa [facility] BASIC METABOLIC PANEL 2022-02-11 03:34:00 Daily Islas [facility] MAGNESIUM 2022-02-11 03:34:00 [place], Teresa [facility] PHOSPHORUS 2022-02-11 03:34:00 [place]uch[place]inTeresa [facility] CBC (WITHOUT DIFFERENTIAL) 2022-02-11 03:34:00 [place] BASIC METABOLIC PANEL 2022-02-10 03:39:00 [facility]FF 2022-02-10 03:39:00 [facility]4 2022-02-10 03:39:00 CuchapinTeresa [facility] th THYROID STIMULATING 2022-02-10 03:39:00 [facility] HORMONE (TSH) CBC 2022-02-10 03:39:00 Daily Islas Healt h CBC/DIFF 2022-02-10 03:39:00 Daily Islas [facility]alt [facility] BASIC METABOLIC PANEL 2022-02-10 03:39:00 Daily Islas Health CBC 2022-02-10 03:39:00 Daily Islas [facility]alt [facility] THYROID STIMULATING 2022-02-10 03:39:00 Teresa Alves [facility] HORMONE (TSH) FREE T4 2022-02-10 03:39:00 Long Teresa [facility] BASIC METABOLIC PANEL 2022-02-09 04:38:00 YinDaily [facility] CBC/DIFF 2022-02-09 04:38:00 Daily Islas Healt h CBC 2022-02-09 04:38:00 Daily Islsa [facility]alt [facility] CBC/DIFF 2022-02-09 04:38:00 Daily Islas [facility]alt [facility] BASIC METABOLIC PANEL 2022-02-09 04:38:00 Daily Islas Health CBC 2022-02-09 04:38:00 Daily [facility]las [facility] CORTISOL, TOTAL 2022-02-08 11:37:00 Jian Schmitt [facility] CORTISOL, TOTAL 2022-02-08 11:37:00 Jian Schmitt H ealth GLUCOSE POC 2022-02-08 08:07:00 [facility] 2022-02-08 08:07:00 Daily Islas [facility]alt [facility] CBC (WITHOUT DIFFERENTIAL) 2022-02-08 04:00:00 Jian Schmitt Health MAGNESIUM 2022-02-08 04:00:00 Jian Schmitt H ealth PHOSPHORUS 2022-02-08 04:00:00 Jian Schmitt H ealth PT/INR 2022-02-08 04:00:00 Jian Schmitt H ealth COMPREHENSIVE METABOLIC 2022-02-08 04:00:00 Jian Schmitt [facility] PANEL CBC (WITHOUT DIFFERENTIAL) 2022-02-08 04:00:00 Jian Schmitt [facility] COMPREHENSIVE METABOLIC 2022-02-08 04:00:00 Jian Schmitt [facility] PANEL PHOSPHORUS 2022-02-08 04:00:00 Jian Schmitt ealth MAGNESIUM 2022-02-08 04:00:00 Jian Schmitt [facility] PT/INR 2022-02-08 04:00:00 Jina Schmitt [facility] ELECTROLYTES, URINE 2022-02-07 18:06:00 Jyoti Carrillo [facility] OSMOLALITY, URINE 2022-02-07 18:06:00 Jyoti Carrillo [facility] URINALYSIS W/REFLEX TO 2022-02-07 18:06:00 [facility] URINE CULTURE URINALYSIS 2022-02-07 18:06:00 Areli Arciniega alth URINE CULTURE COLLECTION 2022-02-07 18:06:00 Areli Arciniega [facility] KIT URINALYSIS W/REFLEX TO 2022-02-07 18:06:00 [facility] URINE CULTURE URINALYSIS 2022-02-07 18:06:00 MicahAreli shields alth URINE CULTURE COLLECTION 2022-02-07 18:06:00 [facility] Chiara [facility] KIT ELECTROLYTES, URINE 2022-02-07 18:06:00 Jyoti Carrillo [facility] OSMOLALITY, URINE 2022-02-07 18:06:00 Jyoti Carrillo [facility] CORONAVIRUS, COVID-19, OLENA 2022-02-07 18:05:00 Jyoti Carrillo [facility] SARS-COV-2, FLU A/B, RSV 2022-02-07 18:05:00 Gerardo [facility] SARS-COV-2, FLU A/B, RSV 2022-02-07 18:05:00 Gerardo [facility] CORONAVIRUS, COVID-19, OLENA 2022-02-07 18:05:00 Jyoti Carrillo [facility] NUTRITION CONSULT 2022-02-07 17:43:36 Jian Schmitt Health ASSESSMENT NUTRITION CONSULT 2022-02-07 17:43:36 Jian Schmitt Health ASSESSMENT BASIC METABOLIC PANEL 2022-02-07 17:18:00 CarrilloJyoti [facility] BASIC METABOLIC PANEL 2022-02-07 17:18:00 CarrilloJyoti [facility] LACTIC ACID 2022-02-07 14:04:00 SuzeAreli alth LACTIC ACID 2022-02-07 14:04:00 SuzeAreli alth BASIC METABOLIC PANEL 2022-02-07 14:03:00 Areli Arciniega [facility] Health CBC/DIFF 2022-02-07 14:03:00 SuzeAreli alth LIPASE 2022-02-07 14:03:00 SuzeAreli alth LIVER PROFILE 2022-02-07 14:03:00 MicaheloisaAreli alth MAGNESIUM 2022-02-07 14:03:00 SuzeAreli alth PHOSPHORUS 2022-02-07 14:03:00 SuzeAreli alth TROPONIN I 2022-02-07 14:03:00 MicahemilianaAreli shields [facility] CBC 2022-02-07 14:03:00 Areli Arciniega alth CBC/DIFF 2022-02-07 14:03:00 Areli Arciniega alth BASIC METABOLIC PANEL 2022-02-07 14:03:00 Suze Jazmineger Chiara [facility] Health LIVER PROFILE 2022-02-07 14:03:00 SuzeAreli alth LIPASE 2022-02-07 14:03:00 SuzeAreli alth MAGNESIUM 2022-02-07 14:03:00 SuzeAreli alth PHOSPHORUS 2022-02-07 14:03:00 SuzeAreli alth TROPONIN I 2022-02-07 14:03:00 Areli Arciniega alth CBC 2022-02-07 14:03:00 MicahemilianaAreli shields alth 12 LEAD EKG 2022-01-21 15:46:10 Ori Goldberg [facility] CBC/DIFF 2022-01-21 04:11:00 LindseyNoeh P [facility] MAGNESIUM 2022-01-21 04:11:00 Lindsey, Tien P [facility] PHOSPHORUS 2022-01-21 04:11:00 Lindsey, Tien P [facility] BASIC METABOLIC PANEL 2022-01-21 04:11:00 Ori Goldberg [facility] CBC 2022-01-21 04:11:00 Lindsey, Tien P [facility] CBC/DIFF 2022-01-20 04:37:00 Lindsey, Tien P [facility] MAGNESIUM 2022-01-20 04:37:00 Lindsey, Tien P [facility] PHOSPHORUS 2022-01-20 04:37:00 Lindsey, Tien P [facility] BASIC METABOLIC PANEL 2022-01-20 04:37:00 [facility] CBC 2022-01-20 04:37:00 Lindsey, Tien P [facility] MAGNESIUM 2022-01-19 18:09:00 [facility], Tien P [facility] PHOSPHORUS 2022-01-19 18:09:00 [facility], Tien P [facility] BASIC METABOLIC PANEL 2022-01-19 18:09:00 [facility], Tien P [facility] CORTISOL, TOTAL 2022-01-19 18:09:00 Karin Bassett [facility] URINALYSIS W/REFLEX TO 2022-01-19 17:22:00 LindseyNoeh P [facility] URINE CULTURE URINALYSIS 2022-01-19 17:22:00 [facility] Tien P [facility] URINE CULTURE COLLECTION 2022-01-19 17:22:00 LindseyTien child [facility] KIT COMPUTED TOMOGRAPHY 2022-01-19 13:29:00 LindseyNoeh P [facility] ABDOMEN AND PELVIS WITHOUT CONTRAST CBC/DIFF 2022-01-19 04:44:00 LindseyTien P [facility] CBC 2022-01-19 04:44:00 [facility] Tien P [facility] DIFFERENTIAL, MANUAL (NO 2022-01-19 04:44:00 Lindsey Tien Santana [facility] BASIC METABOLIC PANEL 2022-01-18 17:15:00 T[facility] CBC/DIFF 2022-01-18 04:46:00 Tien Lucas [facility] MAGNESIUM 2022-01-18 04:46:00 Tien Lucas [facility] PHOSPHORUS 2022-01-18 04:46:00 Tien Lucas [facility] BASIC METABOLIC PANEL 2022-01-18 04:46:00 Ori Goldberg [facility] CBC 2022-01-18 04:46:00 Tien Lucas [facility] HIV AG/AB COMBO ROUTINE 2022-01-18 04:46:00 Karin Bassett [facility] SCREENING ENTERIC PATHOGENS NUCLEIC 2022-01-18 03:25:[address] [facility] ACID TEST BASIC METABOLIC PANEL 2022-01-18 00:29:00 Ori Goldberg [facility] BASIC METABOLIC PANEL 2022-01-17 17:07:00 Tien [facility] BASIC METABOLIC PANEL 2022-01-17 13:15:00 Tien Lucas [facility] CALPROTECTIN FECAL 2022-01-17 12:38:00 Tien Lucas [facility] FECAL LEUKOCYTES 2022-01-17 12:38:00 Tien Lucas [facility] T-TRANSGLUTAMINASE IGA 2022-01-17 12:22:00 Tien Lucas [facility] BASIC METABOLIC PANEL 2022-01-17 08:51:00 [facility]eh [facility] BASIC METABOLIC PANEL 2022-01-17 04:47:00 Tien Lucas [facility] CBC/DIFF 2022-01-17 04:47:00 Tien Lucas [facility] MAGNESIUM 2022-01-17 04:47:00 Tien Lucas [facility] PHOSPHORUS 2022-01-17 04:47:00 Tien Lucas [facility] CBC 2022-01-17 04:47:00 Tien Lucas [place] [facility] BASIC METABOLIC PANEL 2022-01-17 00:08:00 Lindsey Tien Santana [facility] 12 LEAD EKG 2022-01-16 21:23:25 Lindsey Tien Lynne [facility] BASIC METABOLIC PANEL 2022-01-16 21:08:00 Lindsey Tien Johnson[facility]ia [facility] XRAY CHEST 2 VIEWS 2022-01-16 19:56:00 Tien Lucas [facility] ealth IP CONSULT TO PHYSICAL 2022-01-16 19:17:17 Tien Lucas is Health THERAPY CONSULT CLINICAL CASE 2022-01-16 19:17:17 Tien Lucasashia [facility] MANAGEMENT (RN/SW) SEQUENTIAL COMPRESSION 2022-01-16 19:17:17 [facility] PUMP SEQUENTIAL COMPRESSION 2022-01-16 19:17:17 Tien [facility] PUMP SODIUM, URINE, RANDOM 2022-01-16 16:00:00 NievesKevin barreto [facility] CREATININE, URINE, RANDOM 2022-01-16 16:00:00 NievesKevin barreto [facility] OSMOLALITY, URINE 2022-01-16 16:00:00 NievesKevin barreto [facility] SARS-COV-2, FLU A/B, RSV 2022-01-16 15:20:00 NievesKevin barreto [facility] CORONAVIRUS, COVID-19, OLENA 2022-01-16 15:20:00 NievesKevin barreto [facility] FOLIC ACID 2022-01-16 14:13:00 Kevin Nieves [facility] CREATININE POC 2022-01-16 13:55:00 Raymon Martin h BMP POC 2022-01-16 13:46:00 Raymon Martin h CBC/DIFF 2022-01-16 12:12:00 Raymon Martin h CBC 2022-01-16 12:12:00 Raymon Martin h BASIC METABOLIC PANEL 2022-01-16 12:11:00 Sadiq Vargas [facility] Health MAGNESIUM 2022-01-16 12:11:00 Sadiq Vargas philipp [facility] VITAMIN B12 2022-01-16 12:11:00 Kevin Nieves ealth OSMOLALITY,SERUM 2022-01-16 12:11:00 Kevin Nieves [facility] INFUSION PUMP 2022-01-11 09:21:05 Helene Anderson [facility] GLUCOSE POC 2022-01-11 07:54:00 Helene Anderson [facility] BASIC METABOLIC PANEL 2022-01-11 04:07:00 Merissa Richards [facility] MAGNESIUM 2022-01-11 04:07:00 [facility] PHOS[facility]US 2022-01-11 04:07:00 Merissa Richards [facility] h CBC/DIFF 2022-01-11 04:06:00 Merissa Richards [facility] h IRON PROFILE 2022-01-11 04:06:00 Merissa Richards [facility] h FOLIC ACID 2022-01-11 04:06:00 Merissa Richards [facility] h CBC 2022-01-11 04:06:00 Merissa Richards [facility] GLUCOSE POC 2022-01-10 18:16:00 Helene Anderson [facility] URINALYSIS 2022-01-10 16:10:00 Merissa Richards [facility] h URINALYSIS 2022-01-10 16:10:00 Merissa Richards [facility] h SARS-COV-2, FLU A/B, RSV 2022-01-10 15:54:00 Merissa Richards [facility] CORONAVIRUS, COVID-19, OLENA 2022-01-10 15:54:00 [facility] BASIC METABOLIC PANEL 2022-01-10 15:54:00 Merissa Richards [facility] VITAMIN B12 2022-01-10 15:54:00 Merissa Richards [facility] h VBG POC 2022-01-10 11:14:[address] [facility] CBC/DIFF 2022-01-10 11:13:00 Antoine Hester [facility] h BASIC METABOLIC PANEL 2022-01-10 11:13:00 Antoine Hester [facility] LACTIC ACID 2022-01-10 11:13:00 Antoine Hester [facility] h CBC 2022-01-10 11:13:00 Antoine Hester [facility] h LIVER PROFILE 2022-01-10 11:13:00 Merissa Richards [facility] CK, TOTAL 2022-01-10 11:13:00 Merissa [facility] FERRITIN 2022-01-10 11:13:00 Merissa Richards [facility] h CREATINE KINASE MB (CKMB) 2022-01-10 11:13:00 Merissa Richards [facility] XRAY CHEST 2 VIEWS 2022-01-08 21:50:14 Tanja Sebastian [facility] CBC/DIFF 2022-01-08 21:27:00 Tanja Sebastian [facility] BASIC METABOLIC PANEL 2022-01-08 21:27:00 Tanja Sebastian [facility] LIVER PROFILE 2022-01-08 21:27:00 Tanja Sebastian [facility] lt CK, TOTAL 2022-01-08 21:27:00 Tanja Sebastian [facility] TROPONIN I 2022-01-08 21:27:00 Tanja Sebastian [facility] lt CBC 2022-01-08 21:27:00 Tanja Sebastian [facility] CREATINE KINASE MB (CKMB) 2022-01-08 21:27:00 Tanja Sebastian [facility] 12 LEAD EKG 2022-01-08 20:59:56 Tanja Sebastian [facility] COMP. METABOLIC PANEL 2021-09-14 03:41:00 Mickey Ramos [facility] ([id number]) [facility] CBC WITH DIFF 2021-09-14 03:41:00 Mickey Ramos [facility] CT HEAD WO CONTRAST 2021-09-12 14:10:00 Alona Carty [facility] TROPONIN I 2021-09-12 13:00:00 Alona Carty [facility] BASIC METABOLIC PANEL (NA, 2021-09-12 13:00:00 Odin [facility] K, CL, CO2, GLUCOSE, BUN, Medica l Branch CREATININE, CA) CBC WITH DIFF 2021-09-12 13:00:00 [facility] N-TERMINAL PRO-BNP 2021-09-12 13:00:00 Alona Cart[facility] LIPASE 2021-09-09 05:30:00 Sebastian Pacheco [facility] COMP. METABOLIC PANEL 2021-09-09 05:30:00 Sebastian Pacheco [facility] ([id number]) [facility] CBC WITH DIFF 2021-09-09 05:30:00 Sebastian Pacheco [facility] URINALYSIS 2021-09-08 04:45:00 Sebastian Pacheco [facility] CT ABDOMEN PELVIS W 2021-09-08 02:25:23 Sebastian Pacheco [facility] CONTRAST [facility] LIPASE 2021-09-08 02:02:00 Sebastian Pacheco [facility] COMP. METABOLIC PANEL 2021-09-08 02:02:00 Sebastian Pacheco [facility] ([id number]) [facility] CBC WITH DIFF 2021-09-08 02:02:00 Sebastian Pacheco [facility] LACTIC ACID WHOLE BLOOD 2021-09-08 02:02:00 Sebastian Pacheco [facility] COVID-19 (ID NOW RAPID 2021-09-08 01:54:00 Sebastian Pacheco [facility] TESTING) Medical Branch BASIC METABOLIC PANEL (NA, 2021-09-04 12:30:00 Demario Godoy [facility] K, CL, CO2, GLUCOSE, BUN, Medica l Branch CREATININE, CA) BASIC METABOLIC PANEL (NA, 2021-09-04 12:30:00 Demario Godoy [facility] K, CL, CO2, GLUCOSE, BUN, Medica l Branch CREATININE, CA) SURGICAL PATHOLOGY EXAM 2021-09-03 14:01:00 Mayela [facility] COLOSTOMY REVISION 2021-09-03 12:58:00 Mayela [facility] COLOSTOMY REVISION 2021-09-03 12:58:00 [facility] [place] BASIC METABOLIC PANEL (NA, 2021-09-03 11:26:00 Siddiqi, Cynthia [facility] K, CL, CO2, GLUCOSE, BUN, Medica l Branch CREATININE, CA) CBC WITHOUT DIFF 2021-09-03 11:26:00 Siddiqi, [facility] BASIC METABOLIC PANEL (NA, 2021-09-03 11:26:00 Siddiqi, Cynthia [facility] K, CL, CO2, GLUCOSE, BUN, Medica [facility] Branch CREATININE, CA) CBC WITHOUT DIFF 2021-09-03 11:26:00 Siddiqi, [facility] TRANSTHORACIC ECHO (TTE) 2021-09-02 21:22:12 Siddiqi, [facility] COMPLETE W/ CONTRAST Medical [facility] TRANSTHORACIC ECHO (TTE) 2021-09-02 21:22:12 Siddiqi, [facility] COMPLETE W/ CONTRAST Medical [facility] COVID-19 (ID NOW RAPID 2021-09-02 19:35:00 Demario Godoy [facility] TESTING) Medical Branch LAB ONLY COVID 2021-09-02 19:35:00 Demario Godoy [facility] INTERPRETATION Medical Branch COVID-19 (ID NOW RAPID 2021-09-02 19:35:00 Demario Godoy [facility] TESTING) Medical Branch LAB ONLY [...] BASIC METABOLIC PANEL (NA, 2021-09-01 21:20:00 Siddiqi, [facility] K, CL, CO2, GLUCOSE, BUN, Medica l Branch CREATININE, CA) BLOOD CULTURE SCREEN 2021-09-01 08:03:00 [facility] BASIC MET[facility]OLIC PANEL (NA, 2021-09-01 08:03:00 Siddiqi, [facility] K, CL, CO2, GLUCOSE, BUN, Medica l Branch CREATININE, CA) CBC WITH DIFF 2021-09-01 08:03:00 Siddiqi, [facility] BLOOD CULTURE SCREEN 2021-09-01 08:03:00 Chasity [facility] BASIC METABOLIC PANEL (NA, 2021-09-01 08:03:00 Siddiqi, [facility] K, CL, CO2, GLUCOSE, BUN, Medica l Branch CREATININE, CA) CBC WITH DIFF 2021-09-01 08:03:00 Siddiqi, [facility] MAGNESIUM 2021-09-01 02:09:00 [facility] PANEL (NA, 2021-09-01 02:09:00 Roberto [facility] K, CL, CO2, GLUCOSE, BUN, Ar[facility] CREATININE, CA) MAGNESIUM 2021-09-01 02:09:00 [facility] BASIC METABOLIC PANEL (NA, 2021-09-01 02:09:00 Roberto [facility] K, CL, CO2, GLUCOSE, BUN, [facility] CREATININE, CA) LACTIC ACID WHOLE BLOOD 2021-08-31 12:40:00 Siddiqi, [facility] LACTIC ACID WHOLE BLOOD 2021-08-31 12:40:00 Siddiqi, [facility] BASIC METABOLIC PANEL (NA, 2021-08-31 11:44:00 Gaspar, [facility] K, CL, CO2, GLUCOSE, BUN, Medica l Branch CREATININE, CA) BASIC METABOLIC PANEL (NA, 2021-08-31 11:44:00 [facility], [facility], CO2, GLUCOSE, BUN, Medica l Branch CREATININE, CA) BASIC METABOLIC PANEL (NA, 2021-08-31 06:29:00 Chasity [facility] K, CL, CO2, GLUCOSE, BUN, Medica l Branch CREATININE, CA) LACTIC ACID WHOLE BLOOD 2021-08-31 06:29:00 Chasity [facility] BASIC METABOLIC PANEL (NA, 2021-08-31 06:29:00 Chasity [facility] K, CL, CO2, GLUCOSE, BUN, Medica l Branch CREATININE, CA) LACTIC ACID WHOLE BLOOD 2021-08-31 06:29:00 Chasity [facility] BLOOD CULTURE SCREEN 2021-08-31 06:28:00 Chasity [facility] BLOOD CULTURE WORKUP 2021-08-31 06:28:00 Chasity [facility] GRAM POSITIVE BLOOD 2021-08-31 06:28:00 Chasity [facility] PATHOGENS DNA [facility] PROBE-AEROBIC BLOOD CULTURE SCREEN 2021-08-31 06:28:00 Chasity [facility] BLOOD CULTURE WORKUP 2021-08-31 06:28:00 Chasity [facility] GRAM POSITIVE BLOOD 2021-08-31 06:28:00 Chasity [facility] PATHOGENS DNA [facility] PROBE-AEROBIC XR CHEST 2 VW 2021-08-31 03:08:00 Riccardo [facility] XR CHEST 2 VW 2021-08-31 03:08:00 Riccardo [facility] OSMOLALITY, SERUM OR 2021-08-31 02:44:00 [facility] TROPONIN I 2021-08-31 02:44:00 Riccardo [facility] THYROID STIMULATING 2021-08-31 02:44:00 Chasity [facility] HORMONE [facility] BASIC METABOLIC PANEL (NA, 2021-08-31 02:44:00 Riccardo [facility] K, CL, CO2, GLUCOSE, BUN, [facility] CREATININE, CA) OSMOLALITY, SERUM OR 2021-08-31 02:44:00 Chasity [facility] PLASMA [facility] TROPONIN I 2021-08-31 02:44:00 Riccardo [facility] THYROID STIMULATING 2021-08-31 02:44:00 Chasity [facility] HORMONE [facility] BASIC METABOLIC PANEL (NA, 2021-08-31 02:44:00 [facility], CL, CO2, GLUCOSE, BUN, [facility] CREATININE, CA) OSMOLALITY URINE 2021-08-31 00:08:00 Chasity [facility] URINALYSIS 2021-08-31 00:08:00 Riccardo [facility] SODIUM, URINE RANDOM 2021-08-31 00:08:00 Chasity [facility] CHLORIDE, URINE RANDOM 2021-08-31 00:08:00 Chasity [facility] OSMOLALITY URINE 2021-08-31 00:08:00 Chasity [facility] URINALYSIS 2021-08-31 00:08:00 Riccardo [facility] SODIUM, URINE RANDOM 2021-08-31 00:08:00 [facility], URINE RANDOM 2021-08-31 00:08:00 [facility] 2021-08-30 23:27:00 Riccardo [facility] COMP. METABOLIC PANEL 2021-08-30 23:27:00 Riccardo [facility] ([id number]) [facility] CBC WITH DIFF 2021-08-30 23:27:00 Riccardo [facility] N-TERMINAL PRO-BNP 2021-08-30 23:27:00 Gayatri Gu [facility] TROPONIN I 2021-08-30 23:27:00 Riccardo [facility] COMP. METABOLIC PANEL 2021-08-30 23:27:00 [id number] CBC WITH DIFF 2021-08-30 23:27:00 Riccardo [facility] N-TERMINAL PRO-BNP 2021-08-30 23:27:00 Gayatri Gu [facility] HB ECG ROUTINE & RHYTHM 2021-08-30 23:04:48 Gayatri Gu [facility] HB ECG ROUTINE & RHYTHM 2021-08-30 23:04:48 Gayatri Gu [facility] XR CHEST 1 VW 2021-08-30 00:31:51 Alvarez [facility] POCT RAPID STREP SCREEN 2021-08-30 00:24:00 Alvarez [facility] FOR GROUP A [facility] GALV ONLY - INFLUENZA A B 2021-08-30 00:15:00 Alvarez [facility] RSV PCR [facility] COVID-19 (MOLECULAR 2021-08-30 00:15:00 Alvarez Austin [facility] TESTING [facility] NUCLEIC ACID AMPLIFICATION) PREALBUMIN, SERUM 2021-08-05 10:46:00 Cesar liu [facility] PHOSPHORUS 2021-08-05 10:46:00 Cesar [facility] ALBUMIN 2021-08-05 10:46:00 Cesar [facility] MAGNESIUM 2021-08-05 10:46:00 Cesar [facility] BASIC METABOLIC PANEL (NA, 2021-08-05 10:46:00 Jessica Guerrero [facility] K, CL, CO2, GLUCOSE, BUN, Medica l Branch CREATININE, CA) CBC WITH DIFF 2021-08-05 10:46:00 Jessica Guerrero [facility] COVID-19 (ID NOW RAPID 2021-08-05 00:29:00 Jessica Guerrero [facility] TESTING Medical Branch PHOSPHORUS 2021-08-04 11:37:00 Hakeem Jo [facility] MAGNESIUM 2021-08-04 11:37:00 [facility] PANEL (NA, 2021-08-04 11:37:00 Hakeem Jo [facility] K, CL, CO2, GLUCOSE, BUN, [facility] CREATININE, CA) CBC WITH DIFF 2021-08-04 11:37:00 Hakeem Jo [facility] PHOSPHORUS 2021-08-03 10:36:00 Hakeem Jo [facility] MAGNESIUM 2021-08-03 10:36:00 [facility] BASIC METABOLIC PANEL (NA, 2021-08-03 10:36:00 Hakeem Jo, [facility] K, CL, CO2, GLUCOSE, BUN, [facility] CREATININE, CA) CBC WITH DIFF 2021-08-03 10:36:00 Hakeem Jo [facility] PHOSPHORUS 2021-08-02 10:53:00 Hakeem Jo [facility] MAGNESIUM 2021-08-02 10:53:00 [facility] BASIC METABOLIC PANEL (NA, 2021-08-02 10:53:00 Hakeem Jo, [facility] K, CL, CO2, GLUCOSE, BUN, [facility] CREATININE, CA) CBC WITH DIFF 2021-08-02 10:53:00 Hakeem Jo [facility] PHOSPHORUS 2021-08-01 10:03:00 Hakeem Jo [facility] MAGNESIUM 2021-08-01 10:03:00 Hakeem Jo [facility] BASIC METABOLIC PANEL (NA, 2021-08-01 10:03:00 Hakeem Jo, U [facility] K, CL, CO2, GLUCOSE, BUN, [facility] [place] CREATININE, CA) CBC WITH DIFF 2021-08-01 10:03:00 Hakeem Jo [facility] PREALBUMIN, SERUM 2021-07-31 10:22:00 [facility] PHOSPHORUS 2021-07-31 10:22:00 [facility] MAGNESIUM 2021-07-31 10:22:00 [facility] BASIC METABOLIC PANEL (NA, 2021-07-31 10:22:00 Hakeem Jo, U [facility] K, CL, CO2, GLUCOSE, BUN, [facility] CREATININE, CA) CBC WITH DIFF 2021-07-31 10:22:00 Hakeem Jo [facility] COVID-19 (ID NOW RAPID 2021-07-30 06:13:00 Jonah Rees [facility] TESTING) Medical Branch LAB ONLY COVID 2021-07-30 06:13:00 Jonah Rees [facility] INTERPRETATION [facility] CT ABDOMEN PELVIS W 2021-07-30 05:19:01 Jonah Rees [facility] CONTRAST [facility] COMP. METABOLIC PANEL 2021-07-30 03:25:00 Jonah Rees [facility] ([id number]) [facility] LACTIC ACID WHOLE BLOOD 2021-07-30 02:53:00 NegritaJonah escoto [facility] [place] LIPASE 2021-07-30 02:52:00 Jonah Rees [facility] CBC WITH DIFF 2021-07-30 02:52:00 Jonah Rees [facility] CONSENT/REFUSAL FOR 2021-07-30 02:09:09 Doctor Unassigned, [facility] DIAGNOSIS AND TREATMENT [facility] PHOSPHORUS 2021-07-26 12:30:00 Antonino Dietrich [facility] Leda, [facility] MAGNESIUM 2021-07-26 12:30:00 Antonino Poli [facility] Leda, [facility] h BASIC METABOLIC PANEL (NA, 2021-07-26 12:30:00 Antonino Karlo de [facility] K, CL, CO2, GLUCOSE, BUN, [facility], [facility] CREATININE, CA) CBC WITH DIFF 2021-07-26 12:30:00 Antonino Dietrich [facility] Leda, [facility] h PHOSPHORUS 2021-07-25 11:32:00 [facility] MAGNESIUM 2021-07-25 11:32:00 [facility] BASIC METABOLIC PANEL (NA, 2021-07-25 11:32:00 Antonino Karlo de [facility] K, CL, CO2, GLUCOSE, BUN, [facility], [facility] CREATININE, CA) CBC WITH DIFF 2021-07-25 11:32:00 Antonino Dietrich [facility] Leda, [facility] h CBC WITH DIFF 2021-07-25 04:13:00 Cesar, [facility] PHOSPHORUS 2021-07-24 12:18:00 Cesar, [facility] MAGNESIUM 2021-07-24 12:18:00 Cesar, [facility] BASIC METABOLIC PANEL (NA, 2021-07-24 12:18:00 Cesar Adil [facility] K, CL, CO2, GLUCOSE, BUN, [facility] CREATININE, CA) COVID-19 (ID NOW RAPID 2021-07-23 15:23:00 Flaco Lemus [facility] TESTING) Medical Branch LAB ONLY COVID 2021-07-23 15:23:00 Flaco Lemus [facility] INTERPRETATION [facility] URINALYSIS 2021-07-23 12:49:00 Hakeem Jo [facility] PHOSPHORUS 2021-07-23 12:42:00 [facility] MAGNESIUM 2021-07-23 12:42:00 Hakeem Jo [facility] BASIC METABOLIC PANEL (NA, 2021-07-23 12:42:00 Beau Benedict [facility] K, CL, CO2, GLUCOSE, BUN, [facility] CREATININE, CA) CBC WITH DIFF 2021-07-23 12:42:00 Hakeem Jo [facility] CT ABDOMEN PELVIS WO 2021-07-23 08:55:17 Flaco Lemus [facility] EXTERNAL PROVIDER RECORDS 2021-06-25 05:01:00 Doctor Unassigned, [facility] BASIC METABOLIC PANEL (NA, 2021-06-03 10:37:00 Shweta Anderson [facility] K, CL, CO2, GLUCOSE, BUN, Medica [facility] Branch CREATININE, CA) BASIC METABOLIC PANEL (NA, 2021-06-02 10:54:00 Shweta Anderson [facility] K, CL, CO2, GLUCOSE, BUN, [facility] CREATININE, CA) CLOSTRIDIUM DIFFICILE 2021-06-01 22:51:00 [facility] FECAL PATHOGENS BY PCR 2021-06-01 22:51:00 AdalbertoWilfrid [facility] BASIC METABOLIC PANEL (NA, 2021-06-01 15:42:00 Shweta Anderson [facility] K, CL, CO2, GLUCOSE, BUN, [facility] CREATININE, CA) LACTIC ACID WHOLE BLOOD 2021-06-01 05:38:00 Clementine Castellon [facility] CT ABDOMEN PELVIS W 2021-05-31 23:25:45 Willie Garrett [facility] LIPASE 2021-05-31 22:44:00 Willie Garrett [facility] TROPONIN I 2021-05-31 22:44:00 Willie Garrett [facility] COMP. METABOLIC PANEL 2021-05-31 22:44:00 Willie Garrett [facility] ([id number]) [facility] CBC WITH DIFF 2021-05-31 22:44:00 Willie Garrett [facility] COVID-19 (ID NOW RAPID 2021-05-31 22:44:00 Willie Garrett [facility] TESTING) Medical Branch LAB ONLY COVID 2021-05-31 22:44:00 Willie Garrett [facility] INTERPRETATION [facility] PHOSPHORUS 2021-05-21 09:03:00 Cesar [facility] MAGNESIUM 2021-05-21 09:03:00 Cesar [facility] BASIC METABOLIC PANEL (NA, 2021-05-21 09:03:00 Agatha Noonan [facility] K, CL, CO2, GLUCOSE, BUN, Medica l Branch CREATININE, CA) CBC WITH DIFF 2021-05-21 09:03:00 Shaista [facility] XR KUB 2021-05-20 20:02:49 Andrzej Aultman [facility] LIPASE 2021-05-20 20:00:00 Andrzej Aultman [facility] COMP. METABOLIC PANEL 2021-05-20 20:00:00 Bernardo Donnelly [facility] ([id number]) Medical Branch CBC WITH DIFF 2021-05-20 20:00:00 Andrzej Aultman [facility] LACTIC ACID WHOLE BLOOD 2021-05-20 20:00:00 Bernardo Donnelly [facility] COVID-19 (ID NOW RAPID 2021-05-20 20:00:00 Bernardo Donnelly [facility] TESTING) Medical Branch BASIC METABOLIC PANEL (NA, 2021-05-08 10:04:00 Rodrick Keane [facility] K, CL, CO2, GLUCOSE, BUN, Medica [facility] Branch CREATININE, CA) CBC WITH DIFF 2021-05-08 10:04:00 Diogo Keane [facility] XR KUB 2021-05-08 09:44:22 Beto D[facility] XR ABDOMEN 1 VW 2021-05-08 05:32:36 Abu Geno [facility] CT ABDOMEN PELVIS W 2021-05-08 01:08:43 Beto [facility] CONTRAST Medical Branch HEPATIC FUNCTION PANEL 2021-05-08 00:49:00 [employer] [place] [facility] ([id number]) (ALB,T.PRO,BILI Medical Branch T,BU/BC,ALT,AST,ALK PHOS) BASIC METABOLIC PANEL (NA, 2021-05-08 00:49:00 Alona Pérez [facility] K, CL, CO2, GLUCOSE, BUN, Medica [facility] CREATININE, CA) CBC WITH DIFF 2021-05-08 00:49:00 Beto D[facility] COVID-19 (ID NOW RAPID 2021-05-08 00:42:00 [facility] TESTING) Medical Branch LAB ONLY COVID 2021-05-08 00:42:00 [employer] [place] NOTICE OF PRIVACY 2020-09-27 01:47:31 Doctor Unassigned, [facility] PRACTICES [facility] CONSENT/REFUSAL FOR 2020-09-27 01:47:01 Doctor Unassigned, [facility] DIAGNOSIS AND TREATMENT [facility] BASIC METABOLIC PANEL (NA, 2020-08-23 10:03:00 Nataly [facility] K, CL, CO2, GLUCOSE, BUN, Medica l Branch CREATININE, CA) CBC WITHOUT DIFF 2020-08-23 10:03:00 Judith Ingram [facility] COVID-19 (ID NOW RAPID 2020-08-23 00:23:00 Funmilayo Pinzon [facility] TESTING) Medical Branch HB ECG ROUTINE & RHYTHM 2020-08-22 22:19:37 Funmilayo Pinzon [facility] STRIP Medical Branch HEPATIC FUNCTION PANEL 2020-08-22 22:08:00 Funmilayo Pinzon [facility] ([id number]) (ALB,T.PRO,BILI Medical Branch T,BU/BC,ALT,AST,ALK PHOS) BASIC METABOLIC PANEL (NA, 2020-08-22 22:08:00 Nallely Pinzon [facility] K, CL, CO2, GLUCOSE, BUN, Medica l Branch CREATININE, CA) CBC WITH DIFF 2020-08-22 22:08:00 Funmilayo Pinzon [facility] CT SOFT TISSUE NECK W 2020-07-10 00:21:10 Juan M Aguillon [facility] URINALYSIS 2020-07-09 23:07:00 Juan M Aguillon [facility] BASIC METABOLIC PANEL (NA, 2020-07-09 22:51:00 Kirk Aguillon [facility] K, CL, CO2, GLUCOSE, BUN, Medica [facility] Branch CREATININE, CA) CBC WITH DIFF 2020-07-09 22:51:00 Juan M Aguillon [facility] RAPID STREP SCREEN FOR 2020-07-09 22:51:00 Juan M Aguillon [facility] GROUP A Medical Branch COVID-19 (ID NOW RAPID 2020-07-09 22:51:00 Juan M Aguillon [facility] TESTING) Medical Branch CT ABDOMEN PELVIS W 2020-06-05 13:02:55 Travis Valdez [facility] URINALYSIS 2020-06-05 13:02:00 More Goetz [facility] EKG-12 LEAD 2020-06-05 11:57:46 More Goetz [facility] LIPASE 2020-06-05 11:57:00 More Goetz [facility] TROPONIN I 2020-06-05 11:57:00 More Goetz [facility] HEPATIC FUNCTION PANEL 2020-06-05 11:57:00 More Goetz [facility] ([id number]) (ALB,T.PRO,BILI Medical Branch T,BU/BC,ALT,AST,ALK PHOS) BASIC METABOLIC PANEL (NA, 2020-06-05 11:57:00 More Goetz [facility] K, CL, CO2, GLUCOSE, BUN, Medica l Branch CREATININE, CA) CBC WITH DIFF 2020-06-05 11:57:00 More Goetz [facility] LACTIC ACID WHOLE BLOOD 2020-06-05 11:57:00 More Goetz [facility] PHOSPHORUS 2020-05-31 07:54:00 Katia [facility] MAGNESIUM 2020-05-31 07:54:00 aKtia [facility] BASIC METABOLIC PANEL (NA, 2020-05-31 07:54:00 Katia Gomez [facility] K, CL, CO2, GLUCOSE, BUN, Medica l Branch CREATININE, CA) CBC WITH DIFF 2020-05-31 07:54:00 Katia [facility] IR CHANGE OF ABSCESS DRAIN 2020-05-30 19:33:43 Ashwin Marshall [facility] PHOSPHORUS 2020-05-30 08:19:00 Lambreton Gonzales, [facility] MAGNESIUM 2020-05-30 08:19:00 Lambreton Gonzales, [facility] BASIC METABOLIC PANEL (NA, 2020-05-30 08:19:00 Lambreton Carlos a, [facility] K, CL, CO2, GLUCOSE, BUN, Rex [facility] CREATININE, CA) PHOSPHORUS 2020-05-29 06:43:00 Lambreton Gonzales, [facility] MAGNESIUM 2020-05-29 06:43:00 Lambreton Gonzales, [facility] BASIC METABOLIC PANEL (NA, 2020-05-29 06:43:00 Lambreton Carlos a, [facility] [place] K, CL, CO2, GLUCOSE, BUN, [facility] CREATININE, CA) PHOSPHORUS 2020-05-28 09:08:00 Lambreton Gonzales, [facility] MAGNESIUM 2020-05-28 09:08:00 Lambreton Gonzales, [facility] BASIC METABOLIC PANEL (NA, 2020-05-28 09:08:00 Lambreton Carlos a, [employer] [place] K, CL, CO2, GLUCOSE, BUN, [facility] CREATININE, CA) PHOSPHORUS 2020-05-27 09:33:00 Lambreton Gonzales, [facility] MAGNESIUM 2020-05-27 09:33:00 Lambreton Gonzales, [facility] BASIC METABOLIC PANEL (NA, 2020-05-27 09:33:00 Lambreton Carlos a, [facility] [place] K, CL, CO2, GLUCOSE, BUN, [facility] CREATININE, CA) PHOSPHORUS 2020-05-26 09:27:00 Lambreton Gonzales, [facility] MAGNESIUM 2020-05-26 09:27:00 Lambreton Gonzales, [facility] BASIC METABOLIC PANEL (NA, 2020-05-26 09:27:00 Lambreton Carlos a, [facility] [place] K, CL, CO2, GLUCOSE, BUN, [facility] CREATININE, CA) PHOSPHORUS 2020-05-25 21:42:00 Lambreton Gonzales, [facility] MAGNESIUM 2020-05-25 21:42:00 Lambreton Gonzales, [facility] BASIC METABOLIC PANEL (NA, 2020-05-25 21:42:00 Lambreton Carlos a, [facility] K, CL, CO2, GLUCOSE, BUN, [facility] CREATININE, CA) CBC WITH DIFF 2020-05-25 21:42:00 Lambreton Gonzales, [facility] XR KUB 2020-05-25 20:39:54 Lambreton Gonzales, [facility] PHOSPHORUS 2020-05-25 08:48:00 Lambreton Gonzales, [facility] MAGNESIUM 2020-05-25 08:48:00 Lambreton Gonzales, [facility] BASIC METABOLIC PANEL (NA, 2020-05-25 08:48:00 Lambreton Carlos a, [facility] [place] K, CL, CO2, GLUCOSE, BUN, [facility] CREATININE, CA) PHOSPHORUS 2020-05-24 20:41:00 Lambreton Gonzales, [facility] MAGNESIUM 2020-05-24 20:41:00 Lambreton Gonzales, [facility] BASIC METABOLIC PANEL (NA, 2020-05-24 20:41:00 Lambreton Carlos a, [facility] [place] K, CL, CO2, GLUCOSE, BUN, [facility] CREATININE, CA) IR CHANGE OF ABSCESS DRAIN 2020-05-24 17:57:11 Vance Stafford [facility] IR ASPIRATION ABSCESS 2020-05-24 17:24:40 Randa [facility] BULLA OR CYST BY NEEDLE [facility] ASPIRATE OR ABSCESS 2020-05-24 17:23:00 Nixon Prince [facility] CULTURE(AEROBIC/ANAEROBIC) Medic al Branch CBC WITH DIFF 2020-05-24 11:08:00 Sumeet [facility] Anahi [facility] CT ABDOMEN PELVIS W 2020-05-23 15:02:24 [facility] CONTRAST [facility] BASIC METABOLIC PANEL (NA, 2020-05-23 09:45:00 [facility] K, CL, CO2, GLUCOSE, BUN, Anahi Medica l [facility] CREATININE, CA) COVID-19 (PCR MOLECULAR 2020-05-23 06:53:00 Mayela [facility] TESTING) Medical Branch URINALYSIS 2020-05-22 21:41:00 Colette Megeri [facility] LIPASE 2020-05-22 21:26:00 [facility]EL 2020-05-22 21:26:00 LopezAlex sweeney [facility] ([id number]) (ALB,T.PRO,BILI [facility] T,BU/BC,ALT,AST,ALK PHOS) BASIC METABOLIC PANEL (NA, 2020-05-22 21:26:00 Alex Lopez [facility] K, CL, CO2, GLUCOSE, BUN, Medica l Branch CREATININE, CA) CBC WITH DIFF 2020-05-22 21:26:00 Colette [facility] PROTHROMBIN TIME / INR 2020-05-22 21:26:00 Alex Lopez [facility] ACTIVATED PARTIAL THRMPLAS 2020-05-22 21:26:00 Alex Lopez [facility] SELENA [facility] XR CHEST 1 VW 2020-05-22 20:55:00 Alex Lopez [facility] HOSPITAL ADMISSION 2020-05-22 05:01:00 Doctor Unassigned, [facility] URINALYSIS 2020-05-20 09:58:00 Jonah Rodriguez [facility] COVID-19 (ID NOW RAPID 2020-05-20 09:48:00 Jonah Rodriguez [facility] TESTING) Medical Branch CT ABDOMEN PELVIS W 2020-05-20 04:07:43 Jonah Rodriguez [facility] CONTRAST Medical Branch LIPASE 2020-05-20 03:09:00 Jonah Rodriguez [facility] MAGNESIUM 2020-05-20 03:09:00 Michael [facility] TROPONIN I 2020-05-20 03:09:00 Michael [facility] COMP. METABOLIC PANEL 2020-05-20 03:09:00 Jonah Rodriguez [facility] ([id number]) Medical Branch CBC WITH DIFF 2020-05-20 03:09:00 Jonah Rodriguez [facility] PHOSPHORUS 2020-05-10 09:13:00 Randa [facility] MAGNESIUM 2020-05-10 09:13:00 [facility]OL[facility] PANEL (NA, 2020-05-10 09:13:00 Randa [facility] K, CL, CO2, GLUCOSE, BUN, Medica l Branch CREATININE, CA) CBC WITH DIFF 2020-05-10 09:13:00 Randa [facility] PHOSPHORUS 2020-05-09 10:28:00 [facility] 2020-05-09 10:28:00 [facility] BASIC METABOLIC PANEL (NA, 2020-05-09 10:28:00 Randa [facility] K, CL, CO2, GLUCOSE, BUN, Medica l Branch CREATININE, CA) CBC WITH DIFF 2020-05-09 10:28:00 Randa [facility] PHOSPHORUS 2020-05-08 11:18:00 [facility] 2020-05-08 11:18:00 Randa [facility] BASIC METABOLIC PANEL (NA, 2020-05-08 11:18:00 [facility] K, CL, CO2, GLUCOSE, BUN, Medica l Branch CREATININE, CA) CBC WITH DIFF 2020-05-08 11:18:00 [facility] PHOSPHORUS 2020-05-07 09:21:00 [facility] MAGNESIUM 2020-05-07 09:21:00 [facility] BASIC METABOLIC PANEL (NA, 2020-05-07 09:21:00 [facility] K, CL, CO2, GLUCOSE, BUN, Medica l Branch CREATININE, CA) CBC WITH DIFF 2020-05-07 09:21:00 [facility] PHOSPHORUS 2020-05-06 09:57:00 [facility] MAGNESIUM 2020-05-06 09:57:00 [facility] BASIC METABOLIC PANEL (NA, 2020-05-06 09:57:00 [facility] K, CL, CO2, GLUCOSE, BUN, [facility], [facility]) CBC WITH DIFF 2020-05-06 09:56:00 [facility] IR DRAINAGE BY CATHETER 2020-05-05 19:55:00 [facility] PERITONEAL OR Medical Branch RETROPERITONEAL BODY FLUID 2020-05-05 19:06:00 Nixon Prince [facility] CULTURE(AEROBIC/ANAEROBIC) [facility] FUNGUS (ROUTINE) CULTURE 2020-05-05 19:06:00 Nixon Prince [facility] BODY FLUID 2020-05-05 19:00:00 Ivan Guthrie [facility] CULTURE(AEROBIC/ANAEROBIC) [facility] FUNGUS (ROUTINE) CULTURE 2020-05-05 19:00:00 Ivan Guthrie [facility] PREPARE PACKED RBC 2020-05-05 15:59:33 Hakeem Jo [facility] HB ABO GROUPING 2020-05-05 10:55:00 Hakeem Jo [facility] PREALBUMIN, SERUM 2020-05-05 08:56:00 [facility] 2020-05-05 08:56:00 Randa [facility] MAGNESIUM 2020-05-05 08:56:00 Randa [facility] BASIC METABOLIC PANEL (NA, 2020-05-05 08:56:00 Randa Julio [facility] K, CL, CO2, GLUCOSE, BUN, Medica l Branch CREATININE, CA) CBC WITH DIFF 2020-05-05 08:56:00 Randa [facility] URINALYSIS 2020-05-05 05:11:00 [facility]ora [facility] CT ABDOMEN PELVIS W 2020-05-05 04:18:56 Lora Hall [facility] versity [facility] LIPASE 2020-05-05 02:35:00 [facility] COMP. METABOLIC PANEL 2020-05-05 02:35:00 Lora Hall [facility] ([id number]) [facility] CBC WITH DIFF 2020-05-05 02:35:00 Lora [facility] COVID-19 (ID NOW RAPID 2020-05-05 02:27:00 Lora Hall [facility] TESTING) Medical Branch HOSPITAL ADMISSION 2020-05-04 05:01:00 Doctor Unassigned, [facility] CBC WITH DIFF 2020-05-01 11:32:00 Randa [facility] PHOSPHORUS 2020-05-01 11:32:00 Randa [facility] MAGNESIUM 2020-05-01 11:32:00 [facility] BASIC METABOLIC PANEL (NA, 2020-05-01 11:32:00 Randa [facility] K, CL, CO2, GLUCOSE, BUN, Medica l Branch CREATININE, CA) CBC WITH DIFF 2020-04-29 11:31:00 Randa [facility] PHOSPHORUS 2020-04-29 11:31:00 Randa [facility] MAGNESIUM 2020-04-29 11:31:00 Randa [facility] BASIC METABOLIC PANEL (NA, 2020-04-29 11:31:00 [facility], CL, CO2, GLUCOSE, BUN, Medica l Branch CREATININE, CA) CBC WITH DIFF 2020-04-28 08:51:00 Becky, [facility] MAGNESIUM 2020-04-28 08:51:00 Becky, [facility] BASIC METABOLIC PANEL (NA, 2020-04-28 08:51:00 Becky, [facility] K, CL, CO2, GLUCOSE, BUN, Cathryn [facility]ica [facility] CREATININE, CA) CBC WITH DIFF 2020-04-27 09:34:00 Becky, [facility] MAGNESIUM 2020-04-27 09:34:00 Becky, [facility] BASIC METABOLIC PANEL (NA, 2020-04-27 09:34:00 Becky, [facility] K, CL, CO2, GLUCOSE, BUN, Cathryn [facility] CREATININE, CA) CBC WITH DIFF 2020-04-26 09:27:00 Becky, [facility] MAGNESIUM 2020-04-26 09:27:00 Becky, [facility] BASIC METABOLIC PANEL (NA, 2020-04-26 09:27:00 Becky, [facility] K, CL, CO2, GLUCOSE, BUN, Cathryn [facility] CREATININE, CA) CBC WITH DIFF 2020-04-25 08:59:00 Becky, [facility] MAGNESIUM 2020-04-25 08:59:00 Becky, [facility] BASIC METABOLIC PANEL (NA, 2020-04-25 08:59:00 Becky, [facility] K, CL, CO2, GLUCOSE, BUN, Cath[facility] CREATININE, CA) CBC WITH DIFF 2020-04-24 09:44:00 Becky, [facility] MAGNESIUM 2020-04-24 09:44:00 Becky, [facility] BASIC METABOLIC PANEL (NA, 2020-04-24 09:44:00 Becky, [facility] K, CL, CO2, GLUCOSE, BUN, Cathryn [facility] CREATININE, CA) CT ABDOMEN PELVIS W 2020-04-23 23:24:02 Grant Cheema, [facility] CONTRAST [facility] CT THORAX W CONTRAST 2020-04-23 23:24:02 Grant Cheema, [facility] COVID-19 (ID NOW RAPID 2020-04-23 15:06:00 Grant Cheema, [facility] TESTING) [facility] PREALBUMIN, SERUM 2020-04-23 13:42:00 Grant Cheema, [facility] sity [facility] POTASSIUM SERUM 2020-04-23 13:42:00 Becky [facility] CBC WITH DIFF 2020-04-23 10:17:00 Becky [facility] MAGNESIUM 2020-04-23 10:17:00 Becky [facility] BASIC METABOLIC PANEL (NA, 2020-04-23 10:17:00 Becky [facility] K, CL, CO2, GLUCOSE, BUN, Cathryn Medica [facility] CREATININE, CA) XR CHEST 1 VW 2020-04-23 10:03:00 Becky [facility] MAGNESIUM 2020-04-22 10:37:00 Becky [facility] BASIC METABOLIC PANEL (NA, 2020-04-22 10:37:00 Becky [facility] K, CL, CO2, GLUCOSE, BUN, Cathryn Medica [facility] CREATININE, CA) CBC WITH DIFF 2020-04-22 10:30:00 Becky [facility] XR CHEST 1 VW 2020-04-22 07:30:00 Becky [facility] CBC WITH DIFF 2020-04-21 13:09:00 Becky, [facility] MAGNESIUM 2020-04-21 13:09:00 Becky, [facility] BASIC METABOLIC PANEL (NA, 2020-04-21 13:09:00 Becky, [facility] K, CL, CO2, GLUCOSE, BUN, [facility] CREATININE, CA) XR CHEST 1 VW 2020-04-21 06:41:[address] [facility]ST 1 VW 2020-04-20 11:03:41 Grant Cheema [facility] CBC WITH DIFF 2020-04-20 09:45:00 Katrina [facility] PREALBUMIN, SERUM 2020-04-20 09:45:00 [facility] 2020-04-20 09:45:[address] [facility] MAGNESIUM 2020-04-20 09:45:00 Katrina [facility] BASIC METABOLIC PANEL (NA, 2020-04-20 09:45:00 [facility]any [facility] K, CL, CO2, GLUCOSE, BUN, Medica l Branch CREATININE, CA) XR CHEST 1 VW 2020-04-19 10:13:45 Becky [facility] CBC WITH DIFF 2020-04-19 10:10:00 Katrina [facility] PHOSPHORUS 2020-04-19 10:10:[address] [facility] MAGNESIUM 2020-04-19 10:10:00 Katrina [facility] BASIC METABOLIC PANEL (NA, 2020-04-19 10:10:00 [facility]osvany Herndon [facility] K, CL, CO2, GLUCOSE, BUN, Medica l Branch CREATININE, CA) XR CHEST 1 2020-04-18 11:01:00 [facility] 2020-04-18 10:19:00 Katrina [facility] PHOSPHORUS 2020-04-18 10:19:[address] [facility] MAGNESIUM 2020-04-18 10:19:00 Katrina [facility] BASIC METABOLIC PANEL (NA, 2020-04-18 10:19:00 Y[facility]vany Herndon [facility] K, CL, CO2, GLUCOSE, BUN, Medica l Branch CREATININE, CA) XR CHEST 1 2020-04-17 18:58:00 Rosaura Pena [facility] CBC WITH DIFF 2020-04-17 09:33:00 Katrina [facility] PHOSPHORUS 2020-04-17 09:33:[address] [facility] MAGNESIUM 2020-04-17 09:33:00 Katrina [facility] BASIC METABOLIC PANEL (NA, 2020-04-17 09:33:00 Yosvany Herndon [facility] K, CL, CO2, GLUCOSE, BUN, Medica l Branch CREATININE, CA) XR CHEST 1 2020-04-17 08:52:00 Grant Cheema [facility] XR CHEST 1 2020-04-16 23:45:00 [facility] 2020-04-16 21:50:00 Rivera [facility] CULTURE(AEROBIC/ANAEROBIC) [facility] FUNGUS (ROUTINE) CULTURE 2020-04-16 21:50:[address] [facility] CYTO PLEURAL FLUID 2020-04-16 21:50:00 Rivera [facility] LDH TOTAL BODY FLUID 2020-04-16 21:50:00 Rivera [facility] AMYLASE BODY FLUID 2020-04-16 21:50:00 Rivera [facility] GLUCOSE BODY FLUID 2020-04-16 21:50:00 [facility]UID 2020-04-16 21:50:00 [facility] T.PROTEIN BODY FLUID 2020-04-16 21:50:00 Rivera [facility] BODY FLUID DIRECT COUNT 2020-04-16 21:50:00 Rivera [facility] IR PLEURAL DRAINAGE WITH 2020-04-16 21:36:25 Rosaura Pena [facility] TUBE WITH IMAGING [facility] PROTHROMBIN TIME / INR 2020-04-16 16:07:00 Rosaura Pena [facility] CBC WITH DIFF 2020-04-16 10:07:00 Katrina [facility] PHOSPHORUS 2020-04-16 10:07:[address] [facility] MAGNESIUM 2020-04-16 10:07:00 Katrina [facility] BASIC METABOLIC PANEL (NA, 2020-04-16 10:07:00 Yosvany Herndon [facility] K, CL, CO2, GLUCOSE, BUN, Medica l Branch CREATININE, CA) CT ABDOMEN PELVIS W 2020-04-16 07:02:21 Grant Cheema [facility] CBC WITH DIFF 2020-04-15 10:02:00 Katrina [facility] PHOSPHORUS 2020-04-15 10:02:[address] [facility] MAGNESIUM 2020-04-15 10:02:00 Katrina [facility] BASIC METABOLIC PANEL (NA, 2020-04-15 10:02:00 [facility], CL, CO2, GLUCOSE, BUN, Medica l Branch CREATININE, CA) CBC WITH DIFF 2020-04-14 10:26:00 Katrina [facility] PHOSPHORUS 2020-04-14 10:26:[address] [facility] MAGNESIUM 2020-04-14 10:26:00 Katrina [facility] BASIC METABOLIC PANEL (NA, 2020-04-14 10:26:00 Yosvany Herndon [facility] K, CL, CO2, GLUCOSE, BUN, Medica l Branch CREATININE, CA) BASIC METABOLIC PANEL (NA, 2020-04-13 23:53:00 Grant Santana i [facility] K, CL, CO2, GLUCOSE, BUN, Danny Medica l Branch CREATININE, CA) CBC WITHOUT DIFF 2020-04-13 23:53:00 Grant Cheema [facility] IR DRAINAGE BY CATHETER 2020-04-13 20:35:08 Grant Cheema [facility] PERITONEAL OR [facility] RETROPERITONEAL BODY FLUID 2020-04-13 20:05:00 Neris Grier [facility] CULTURE(AEROBIC/ANAEROBIC) Medic al Branch LDH TOTAL BODY FLUID 2020-04-13 20:05:00 Grant Cheema, [facility] GLUCOSE BODY FLUID 2020-04-13 20:05:[address] [facility] T.PROTEIN BODY FLUID 2020-04-13 20:05:00 Grant Cheema, [facility] BODY FLUID DIRECT COUNT 2020-04-13 20:05:00 Grant Cheema, [facility] CBC WITH DIFF 2020-04-13 10:44:00 Katrina [facility] PHOSPHORUS 2020-04-13 10:44:[address] [facility] MAGNESIUM 2020-04-13 10:44:00 Katrina [facility] BASIC METABOLIC PANEL (NA, 2020-04-13 10:44:00 Yosvany Herndon [facility] K, CL, CO2, GLUCOSE, BUN, [facility] CREATININE, CA) CT ABDOMEN PELVIS W 2020-04-12 21:23:19 Melissa Kilgore [facility] CONTRAST [facility] URINALYSIS 2020-04-12 20:43:00 Rosaura Pena [facility] URINE CULTURE 2020-04-12 20:43:00 Rosaura Pena [facility] BLOOD CULTURE WORKUP 2020-04-12 18:51:[address] [facility] GRAM NEGATIVE BLOOD 2020-04-12 18:51:[address] [facility] PATHOGENS DNA [facility] PROBE-ANAEROBIC BLOOD CULTURE SCREEN 2020-04-12 18:51:[address] [facility] BLOOD CULTURE SCREEN 2020-04-12 18:50:[address] [facility] CBC WITH DIFF 2020-04-12 08:46:00 Katrina [facility] PHOSPHORUS 2020-04-12 08:46:[address] [facility] MAGNESIUM 2020-04-12 08:46:00 Katrina [facility] BASIC METABOLIC PANEL (NA, 2020-04-12 08:46:00 Yosvany Herndon [facility] K, CL, CO2, GLUCOSE, BUN, Medica l Branch CREATININE, CA) CBC WITH DIFF 2020-04-11 08:54:00 Katrina [facility] PHOSPHORUS 2020-04-11 08:54:[address] [facility] MAGNESIUM 2020-04-11 08:54:00 Katrina [facility] BASIC METABOLIC PANEL (NA, 2020-04-11 08:54:00 Yosvany Herndon [facility] K, CL, CO2, GLUCOSE, BUN, Medica l Branch CREATININE, CA) CBC WITH DIFF 2020-04-10 09:49:00 Katrina [facility] PHOSPHORUS 2020-04-10 09:49:[address] [facility] MAGNESIUM 2020-04-10 09:49:00 [facility] 1 VW 2020-04-09 11:27:00 Grant Cheema [facility] CBC WITH DIFF 2020-04-09 09:07:00 Katrina [facility] PHOSPHORUS 2020-04-09 09:07:[address] [facility] MAGNESIUM 2020-04-09 09:07:00 Katrina [facility] HEPATIC FUNCTION PANEL 2020-04-09 09:07:00 Grant Cheema [facility] ([id number]) (ALB,T.PRO,[facility] T,BU/BC,ALT,AST,ALK PHOS) BASIC METABOLIC PANEL (NA, 2020-04-09 09:07:00 [facility] K, CL, CO2, GLUCOSE, BUN, Medica l Branch CREATININE, CA) AC PANEL 20 + LACTIC ACID 2020-04-08 21:11:00 [facility] [place] POCT GLUCOSE (AUTOMATED) 2020-04-08 12:27:00 Bia Pedro [facility] [place] AC PANEL 21 + LACTIC ACID 2020-04-08 09:34:00 Bigg Lawton [facility] POCT GLUCOSE (AUTOMATED) 2020-04-08 09:33:00 Bia Pedro [facility] [place] CBC WITH DIFF 2020-04-08 09:26:00 Katrina [facility] MAGNESIUM 2020-04-08 09:26:00 Katrina [facility] BASIC METABOLIC PANEL (NA, 2020-04-08 09:26:00 [facility]vany Herndon [facility] K, CL, CO2, GLUCOSE, BUN, Medica l Branch CREATININE, CA) POCT GLUCOSE (AUTOMATED) 2020-04-08 04:24:00 PhadmitrikGriffina [facility] [place] POCT GLUCOSE (AUTOMATED) 2020-04-08 00:36:00 Phadmitrik Bia Uni versity [facility] POCT GLUCOSE (AUTOMATED) 2020-04-07 21:24:00 Bia Pedro Uni versity [facility] POCT GLUCOSE (AUTOMATED) 2020-04-07 16:49:00 Griffin Pedroa [facility] [place] AC PANEL 20 + LACTIC ACID 2020-04-07 14:14:00 Yosvany Herndon [facility] [place] LACTIC ACID WHOLE BLOOD 2020-04-07 13:53:00 [facility] PO[facility] GLUCOSE (AUTOMATED) 2020-04-07 12:50:00 Bia Pedro [facility] [place] AC PANEL 20 + LACTIC ACID 2020-04-07 11:16:00 Yosvany Herndon [facility] [place] MAGNESIUM 2020-04-07 08:48:00 Katrina [facility] BASIC METABOLIC PANEL (NA, 2020-04-07 08:48:00 Yosvany Herndon [facility] K, CL, CO2, GLUCOSE, BUN, Medica l Branch CREATININE, CA) CBC WITH DIFF 2020-04-07 08:48:00 Yosvany Herndon [place] [facility] XR CHEST 1 VW 2020-04-07 08:10:00 Becky [facility] POCT GLUCOSE (AUTOMATED) 2020-04-07 04:36:00 Bia Pedro [facility] AC PANEL 21 + LACTIC ACID 2020-04-07 02:05:00 Bigg [place] [facility] MRSA / MSSA SCREEN BY PCR, 2020-04-07 02:05:00 Grant Santana i [facility] BLOOD CULTURE SCREEN 2020-04-07 02:05:00 Grant Cheema [facility] POCT GLUCOSE (AUTOMATED) 2020-04-07 00:37:00 Bia Pedro [facility] HCV ANTIBODY 2020-04-06 23:44:00 Grant Cheema [facility] POCT GLUCOSE (AUTOMATED) 2020-04-06 23:43:00 Bia Pedro [facility] HIV 1/2 AG-AB WITH REFLEX 2020-04-06 23:30:00 Grant Cheema [facility] POCT GLUCOSE (AUTOMATED) 2020-04-06 22:14:00 Bia Pedro [facility] ECHO ROUTINE W/DOPPLER 2020-04-06 20:25:55 Yosvany Herndon [facility] PROTHROMBIN TIME / INR 2020-04-06 19:00:00 Rosaura Pena [facility] ACTIVATED PARTIAL THRMPLAS 2020-04-06 19:00:00 Becky [facility] MAGNESIUM 2020-04-06 19:00:00 Becky [facility] BASIC METABOLIC PANEL (NA, 2020-04-06 19:00:00 Becky [facility] K, CL, CO2, GLUCOSE, BUN, [facility] CREATININE, CA) COMP. METABOLIC PANEL 2020-04-06 19:00:00 Yosvany Herndon [facility] ([id number]) [facility] CBC WITH DIFF 2020-04-06 19:00:00 [facility] [place] AC PANEL 21 + LACTIC ACID 2020-04-06 18:59:00 Simi Dennis [facility] ABG+COOX+NA+K+GLU+CA2+ 2020-04-06 16:06:00 Bia Pedro [facility] INTUBATION 2020-04-06 16:04:59 Ana [facility] XR CHEST 1 VW 2020-04-06 15:43:00 Katrina [facility] SURGICAL PATHOLOGY EXAM 2020-04-06 15:12:00 Zahraa Mccabeshua [facility] CENTRAL LINE 2020-04-06 14:52:37 Cynthia Herring [facility] ARTERIAL LINE 2020-04-06 14:51:44 Ana [facility] ASPIRATE OR ABSCESS 2020-04-06 14:50:29 Person, [facility] CULTURE(AEROBIC/ANAEROBIC) [employer] CULTURE 2020-04-06 14:50:29 Person, [facility] FUNGUS (ROUTINE) CULTURE 2020-04-06 14:50:29 Person, [facility] ABG+COOX+NA+K+GLU+CA2+ 2020-04-06 14:46:00 Bia Pedro [facility] HB ABO GROUPING 2020-04-06 14:39:00 Dana Sampson [facility] EXPLORATORY LAPAROTOMY 2020-04-06 13:51:[address] [facility] URINE CULTURE 2020-04-06 13:48:00 Grant Cheema [facility] XR KUB 2020-04-06 13:34:22 Grant Cheema [facility] XR CHEST 1 VW 2020-04-06 13:34:22 Grant Cheema [facility] MAGNESIUM 2020-04-06 11:47:00 Becky [facility] BASIC METABOLIC PANEL (NA, 2020-04-06 11:47:00 Becky [facility] K, CL, CO2, GLUCOSE, BUN, [facility] [place] CREATININE, [place]) CBC WITH DIFF 2020-04-06 11:47:00 Becky [facility] XR KUB 2020-04-05 21:34:47 Grant Cheema, [facility] XR KUB 2020-04-05 19:41:00 Grant Cehema, [facility] MAGNESIUM 2020-04-05 09:44:00 Becky [facility] BASIC METABOLIC PANEL (NA, 2020-04-05 09:44:00 Becky [facility] K, CL, CO2, GLUCOSE, BUN, [facility] CREATININE, CA) CBC WITH DIFF 2020-04-05 09:44:00 Becky [facility] MAGNESIUM 2020-04-04 10:09:00 Becky [facility] BASIC METABOLIC PANEL (NA, 2020-04-04 10:09:00 Becky [facility] K, CL, CO2, GLUCOSE, BUN, [facility] CREATININE, CA) CBC WITH DIFF 2020-04-04 10:09:00 Becky [facility] SURGICAL PATHOLOGY EXAM 2020-04-03 20:13:00 Mayela [facility] LAPAROSCOPIC COLECTOMY 2020-04-03 15:35:00 Mayela [facility] COLONOSCOPY 2020-04-03 15:35:00 Mayela [facility] COLECTOMY 2020-04-03 15:35:00 Mayela [facility] MAGNESIUM 2020-04-03 09:20:00 Becky [facility] BASIC METABOLIC PANEL (NA, 2020-04-03 09:20:00 Becyk [facility] K, CL, CO2, GLUCOSE, BUN, [facility] CREATININE, CA) CBC WITH DIFF 2020-04-03 09:20:00 Becky [facility] HB ABO GROUPING 2020-04-02 22:45:00 Hugo [facility] MAGNESIUM 2020-04-02 10:22:00 Becky [facility] BASIC METABOLIC PANEL (NA, 2020-04-02 10:22:00 Becky [facility] K, CL, CO2, GLUCOSE, BUN, [facility] CREATININE, CA) CBC WITH DIFF 2020-04-02 10:22:00 Becky [facility] COVID-19 (ID NOW RAPID 2020-04-01 23:02:[address] [facility] TESTING) [facility] URINALYSIS 2020-03-31 11:25:00 Alex Lopez [facility] CT ABDOMEN PELVIS W 2020-03-31 00:17:06 Alex Lopez [facility] CONTRAST [facility] XR CHEST 1 VW 2020-03-30 22:43:49 Colette [facility] EKG-12 LEAD 2020-03-30 22:14:24 Doctor Unassigned, [facility] PROTHROMBIN TIME / INR 2020-03-30 22:05:[address] [facility] ACTIVATED PARTIAL THRMPLAS 2020-03-30 22:05:00 [facility] N-TERMINAL PRO-BNP 2020-03-30 22:05:00 Alex Lopez [facility] LIPASE 2020-03-30 22:05:00 Colette Megeri [facility] TROPONIN I 2020-03-30 22:05:00 Colette [facility] HEPATIC FUNCTION PANEL 2020-03-30 22:05:00 Alex Lopez [facility] ([id number]) (ALB,T.PRO,BILI Medical Branch T,BU/BC,ALT,AST,ALK PHOS) BASIC METABOLIC PANEL (NA, 2020-03-30 22:05:00 Alex Lopez [facility] K, CL, CO2, GLUCOSE, BUN, Medica l Branch CREATININE, CA) CBC WITH DIFF 2020-03-30 22:05:00 Colette [facility] EKG-12 LEAD 2020-03-30 22:01:44 Colette [facility] HOSPITAL ADMISSION 2020-03-30 05:01:00 Doctor Unassigned, [facility] MAGNESIUM 2020-03-26 09:57:00 Simin [facility] BASIC METABOLIC PANEL (NA, 2020-03-26 09:57:00 Simin, [facility] K, CL, CO2, GLUCOSE, BUN, Medica [facility] CREATININE, CA) CBC WITH DIFF 2020-03-26 09:57:00 Simin [facility] LACTIC ACID WHOLE BLOOD 2020-03-26 04:09:00 Sarah Duval [facility] COVID-19 (ID NOW RAPID 2020-03-26 02:01:00 Bernardo Donnelly [facility] TESTING) [facility] CT ABDOMEN PELVIS W 2020-03-26 01:17:18 Bernardo Donnelly [facility] CONTRAST [facility] PHOSPHORUS 2020-03-26 00:39:00 Simin [facility] MAGNESIUM 2020-03-26 00:39:00 Simin [facility] HEPATIC FUNCTION PANEL 2020-03-26 00:39:00 Bernardo Donnelly [facility] ([id number]) (ALB,T.PRO,BILI Medical [facility] T,BU/BC,ALT,AST,ALK PHOS) BASIC METABOLIC PANEL (NA, 2020-03-26 00:39:00 Bernardo Donnelly [facility] K, CL, CO2, GLUCOSE, BUN, [facility] CREATININE, CA) CBC WITH DIFF 2020-03-26 00:39:00 Andrzej Aultman [facility] EXTRA TUBE LT. BLUE 2020-03-26 00:39:00 Bernardo Donnelly [facility] HOSPITAL ADMISSION 2020-03-25 05:01:00 Doctor Unassigned, [facility] PROTHROMBIN TIME / INR 2020-03-03 04:27:00 Ori Persaud [facility] ACTIVATED PARTIAL THRMPLAS 2020-03-03 04:27:00 Zahraa Persaud se [facility] XR ABDOMEN ACUTE SERIES 2020-03-03 02:15:00 Shy [facility] PHOSPHORUS 2020-03-03 01:22:00 Ori Persaud [facility] MAGNESIUM 2020-03-03 01:22:00 Ori Persaud [facility] HEPATIC FUNCTION PANEL 2020-03-03 01:22:00 Shy [facility] ([id number]) (ALB,T.PRO,BILI [facility] T,BU/BC,ALT,AST,ALK PHOS) BASIC METABOLIC PANEL (NA, 2020-03-03 01:22:00 Shy [facility] K, CL, CO2, GLUCOSE, BUN, Medica l Branch CREATININE, CA) CBC WITH DIFFERENTIAL 2020-03-03 01:22:00 Shy [facility] URINALYSIS 2020-03-03 01:22:[address] [facility] LACTIC ACID WHOLE BLOOD 2020-03-03 01:22:00 Shy [facility] COVID-19 (ID NOW RAPID 2020-03-03 01:22:00 Shy [facility] TESTING) [facility] GALV/CLC ONLY - URINE DRUG 2020-02-27 20:02:00 [facility] (IMMUNOASSAY) - [facility] COMPREHENSIVE DRUG SCREEN FREE T4 2020-02-27 17:48:00 [facility] THYROID STIMULATING 2020-02-27 17:48:[facility] FREE T3 2020-02-27 17:48:00 [facility] CT ABDOMEN PELVIS W 2020-02-26 18:27:28 Alondra Fay [facility] CONTRAST [facility] COVID-19 (ID NOW RAPID 2020-02-26 06:41:00 Shy [facility] TESTING) [facility] XR ABDOMEN ACUTE SERIES 2020-02-26 04:48:30 Robledo, [facility] LIPASE 2020-02-26 03:35:00 Robledo, [facility] HEPATIC FUNCTION PANEL 2020-02-26 03:35:00 Robledo, [facility] ([id number]) (ALB,T.PRO,BILI [facility] T,BU/BC,ALT,AST,ALK PHOS) BASIC METABOLIC PANEL (NA, 2020-02-26 03:35:00 Sabi Robledo [facility] K, CL, CO2, GLUCOSE, BUN, Medica l Branch CREATININE, CA) CBC WITH DIFFERENTIAL 2020-02-26 03:35:00 Robledo, [facility] LACTIC ACID WHOLE BLOOD 2020-02-26 03:35:00 Robledo [facility] EXTRA TUBE LT. BLUE 2020-02-26 03:35:00 Robledo, [facility] MAGNESIUM 2020-02-03 16:38:00 [facility] BASIC METABOLIC PANEL (NA, 2020-02-03 16:38:00 SiminExcela [facility] K, CL, CO2, GLUCOSE, BUN, Medica l Branch CREATININE, CA) XR KUB 2020-01-31 16:59:00 Helene Griffin [facility] BASIC METABOLIC PANEL (NA, 2020-01-31 06:15:00 Kirill Henson [facility] K, CL, CO2, GLUCOSE, BUN, Medica l Branch CREATININE, CA) CBC WITH DIFFERENTIAL 2020-01-31 06:15:00 Kirill Henson [facility] BASIC METABOLIC PANEL (NA, 2020-01-29 10:06:00 Nataly [facility] K, CL, CO2, GLUCOSE, BUN, Medica l Branch CREATININE, CA) CBC WITH DIFFERENTIAL 2020-01-29 10:06:00 Judith Ingram [facility] COVID-19 (PCR MOLECULAR 2020-01-29 03:56:00 Liz [facility] TESTING) Medical Branch LACTIC ACID WHOLE BLOOD 2020-01-29 03:55:00 Bernardo Donnelly [facility] EXTRA TUBE LAV 2020-01-29 03:55:00 Liz [facility] EXTRA TUBE LT. BLUE 2020-01-29 03:55:00 Liz [facility] EXTRA TUBE LT. GREEN 2020-01-29 03:55:00 Liz [facility] URINALYSIS 2020-01-29 01:35:00 Adrien Silvia [facility] COVID-19 (ID NOW RAPID 2020-01-29 01:32:00 Bernardo Donnelly [facility] TESTING) [facility] CT ABDOMEN PELVIS W 2020-01-28 23:53:23 Silvia Jurado I [facility] CONTRAST [facility] LIPASE 2020-01-28 23:19:00 [facility]EL 2020-01-28 23:19:00 [place] [facility] ([id number]) (ALB,T.PRO,BILI [facility] T,BU/BC,ALT,AST,ALK PHOS) BASIC METABOLIC PANEL (NA, 2020-01-28 23:19:00 Sondra Jurado [facility] K, CL, CO2, GLUCOSE, BUN, Medica l Branch CREATININE, CA) CBC WITH DIFFERENTIAL 2020-01-28 23:19:00 [facility] 2020-01-28 05:01:00 Doctor Unassigned, [facility] BASIC METABOLIC PANEL (NA, 2020-01-26 18:06:00 [facility], CL, CO2, GLUCOSE, BUN, Medica l Branch CREATININE, CA) MAGNESIUM 2020-01-26 08:17:00 Liz [facility] XR KUB 2020-01-26 06:00:00 Helene Griffin [facility] PHOSPHORUS 2020-01-25 09:43:00 Liz [facility] COVID-19 (ID NOW RAPID 2020-01-25 04:31:00 Shy [facility] TESTING) [facility] Branch LACTIC ACID WHOLE BLOOD 2020-01-25 04:27:00 Shy [facility] CT ABDOMEN PELVIS W 2020-01-25 02:15:22 Shy [facility] CONTRAST [facility] URINALYSIS 2020-01-25 01:05:[address] [facility] LIPASE 2020-01-25 00:42:00 Robledo, [facility] HEPATIC FUNCTION PANEL 2020-01-25 00:42:00 Robledo, [facility] ([id number]) (ALB,T.PRO,BILI [facility] T,BU/BC,ALT,AST,ALK PHOS) BASIC METABOLIC PANEL (NA, 2020-01-25 00:42:00 Shy [facility] K, CL, CO2, GLUCOSE, BUN, Medica l Branch CREATININE, CA) CBC WITH DIFFERENTIAL 2020-01-25 00:42:00 Robledo, [facility] [id number] 2020-01-09 00:00:00 [id number] [facility] EXTERNAL PROVIDER RECORDS 2019-12-28 05:01:00 Doctor Unassigned, [facility] Plan of Care Planned Activity Planned Date Details Comments Source Future Scheduled 2029-03-23 Screening for malignant [facility] 00:00:00 neoplasm of colon [facility] (procedure) [code = 174692688] Future Scheduled 2029-03-23 Screening for malignant [facility] 00:00:00 neoplasm of colon [facility] (procedure) [code = 124897312] Future Scheduled 2029-03-23 Screening for malignant [facility] 00:00:00 neoplasm of colon [facility] (procedure) [code = 793958656] Future Scheduled 2029-03-23 Screening for malignant [facility] 00:00:00 neoplasm of colon [facility] (procedure) [code = 250260014] Future Scheduled 2029-03-23 Screening for malignant [facility] 00:00:00 neoplasm of colon [facility] (procedure) [code = 173693673] Future Scheduled 2029-03-23 Screening for malignant [facility] 00:00:00 neoplasm of colon [facility] (procedure) [code = 400661667] Future Scheduled 2029-03-23 Screening for malignant [facility] 00:00:00 neoplasm of colon [facility] (procedure) [code = 821482054] Future Scheduled 2029-03-23 Screening for malignant [facility] 00:00:00 neoplasm of colon [facility] (procedure) [code = 713078814] Future Scheduled 2029-03-23 Screening for malignant [facility] 00:00:00 neoplasm of colon [facility] (procedure) [code = 674880058] Future Scheduled 2029-03-23 Screening for malignant [facility] 00:00:00 neoplasm of colon [facility] (procedure) [code = 887609185] Future Scheduled 2029-03-23 Screening for malignant [facility] 00:00:00 neoplasm of colon [facility] (procedure) [code = 517682953] Future Scheduled 2029-03-23 Screening for malignant [facility] 00:00:00 neoplasm of colon [facility] Ce [facility] (procedure) [code = 264092637] Future Scheduled 2029-03-23 Screening for malignant [facility] 00:00:00 neoplasm of colon [facility] (procedure) [code = 739645011] Future Scheduled 2029-03-23 Screening for malignant [facility] 00:00:00 neoplasm of colon [facility] (procedure) [code = 841959650] Future Scheduled 2029-03-23 Screening for malignant [facility] 00:00:00 neoplasm of colon [facility] (procedure) [code = 966420302] Future Scheduled 2029-03-23 Screening for malignant [facility] 00:00:00 neoplasm of colon [facility] Ce [facility] (procedure) [code = 976240121] Future Scheduled 2029-03-23 Screening for malignant [facility] 00:00:00 neoplasm of colon [facility] (procedure) [code = 791001869] Future Scheduled 2029-03-23 Screening for malignant [facility] 00:00:00 neoplasm of colon [facility] Ce [facility] (procedure) [code = 549255360] Future Scheduled 2029-03-23 Screening for malignant [facility] 00:00:00 neoplasm of colon [facility] Ce [facility] (procedure) [code = 428570439] Future Scheduled 2029-03-23 Screening for malignant [facility] 00:00:00 neoplasm of colon [facility] Ce [facility] (procedure) [code = 449962983] Future Scheduled 2029-03-23 Screening for malignant [facility] 00:00:00 neoplasm of colon [facility] Ce [facility] (procedure) [code = 832448408] Future Scheduled 2029-03-23 Screening for malignant [facility] 00:00:00 neoplasm of colon [facility] Ce [facility] (procedure) [code = 493662508] Future Scheduled 2029-03-23 Screening for malignant [facility] 00:00:00 neoplasm of colon [facility] Ce [facility] (procedure) [code = 485469022] Future Scheduled 2029-03-23 Screening for malignant [facility] 00:00:00 neoplasm of colon Medical Ce [facility] (procedure) [code = 302328537] Future Scheduled 2029-03-23 Screening for malignant [facility] 00:00:00 neoplasm of colon [facility] Ce [facility] (procedure) [code = 398842992] Future Scheduled 2029-03-23 Screening for malignant [facility] 00:00:00 neoplasm of colon [facility] Ce [facility] (procedure) [code = 593968253] Future Scheduled 2029-03-23 Screening for malignant [facility] 00:00:00 neoplasm of colon [facility] Ce [facility] (procedure) [code = 014978889] Future Scheduled 2029-03-23 Screening for malignant [facility] 00:00:00 neoplasm of colon [facility] Ce [facility] (procedure) [code = 334439898] Future Scheduled 2029-03-23 Screening for malignant [facility] 00:00:00 neoplasm of colon [facility] Ce [facility] (procedure) [code = 415186305] Future Scheduled 2029-03-23 Screening for malignant [facility] 00:00:00 neoplasm of colon [facility] Ce [facility] (procedure) [code = 243162357] Future Scheduled 2029-03-23 Screening for malignant [facility] 00:00:00 neoplasm of colon [facility] Ce [facility] (procedure) [code = 078353142] Future Scheduled 2029-03-23 Screening for malignant [facility] 00:00:00 neoplasm of colon [facility] Ce [facility] (procedure) [code = 465158982] Future Scheduled 2029-03-23 Screening for malignant [facility] 00:00:00 neoplasm of colon [facility] Ce [facility] (procedure) [code = 001326079] Future Scheduled 2029-03-23 Screening for malignant [facility] 00:00:00 neoplasm of colon [facility] Ce [facility] (procedure) [code = 483715059] Future Scheduled 2029-03-23 Screening for malignant [facility] 00:00:00 neoplasm of colon [facility] (procedure) [code = 002459591] Future Scheduled 2029-03-23 Screening for malignant [facility] 00:00:00 neoplasm of colon [facility] Ce [facility] (procedure) [code = 956832053] Future Scheduled 2029-03-23 Screening for malignant [facility] 00:00:00 neoplasm of colon [facility] (procedure) [code = 397021672] Future Scheduled 2029-03-23 Screening for malignant [facility] 00:00:00 neoplasm of colon [facility] (procedure) [code = 434775737] Future Scheduled 2029-03-23 Screening for malignant [facility] 00:00:00 neoplasm of colon [facility] (procedure) [code = 939312736] Future Scheduled 2029-03-23 Screening for malignant [facility] 00:00:00 neoplasm of colon [facility] Ce [facility] (procedure) [code = 253090595] Future Scheduled 2029-03-23 Screening for malignant [facility] 00:00:00 neoplasm of colon [facility] Ce [facility] (procedure) [code = 041606148] Future Scheduled 2029-03-23 Screening for malignant [facility] 00:00:00 neoplasm of colon Medical Ce [facility] (procedure) [code = 730861545] Future Scheduled 2029-03-23 Screening for malignant [facility] 00:00:00 neoplasm of colon [facility] (procedure) [code = 910412099] Future Scheduled 2029-03-23 Screening for malignant [facility] 00:00:00 neoplasm of colon [facility] Ce [facility] (procedure) [code = 933889288] Future Scheduled 2029-03-23 Screening for malignant [facility] 00:00:00 neoplasm of colon Medical Ce [facility] (procedure) [code = 005561210] Future Scheduled 2029-03-23 Screening for malignant [facility] 00:00:00 neoplasm of colon Medical Ce [facility] (procedure) [code = 063557171] Future Scheduled 2029-03-23 Screening for malignant [facility] 00:00:00 neoplasm of colon Medical Ce [facility] (procedure) [code = 970329941] Future Scheduled 2029-03-23 Screening for malignant [facility] 00:00:00 neoplasm of colon Medical Ce [facility] (procedure) [code = 885453730] Future Scheduled 2029-03-23 Screening for malignant [facility] 00:00:00 neoplasm of colon Medical Ce [facility] (procedure) [code = 924720029] Future Scheduled 2029-03-23 Screening for malignant [facility] 00:00:00 neoplasm of colon Medical Ce [facility]ter (procedure) [code = 044500504] Future Scheduled 2029-03-23 Screening for malignant [facility] 00:00:00 neoplasm of colon Medical Ce [facility] (procedure) [code = 581008442] Future Scheduled 2029-03-23 Screening for malignant [facility] 00:00:00 neoplasm of colon Medical Ce [facility] (procedure) [code = 975116500] Future Scheduled 2029-03-23 Screening for malignant [facility] 00:00:00 neoplasm of colon Medical Ce [facility] (procedure) [code = 674459492] Future Scheduled 2029-03-23 Screening for malignant [facility] 00:00:00 neoplasm of colon Medical Ce [facility]ter (procedure) [code = 501184503] Future Scheduled 2029-03-23 Screening for malignant [facility] 00:00:00 neoplasm of colon Medical Ce [facility] (procedure) [code = 911043208] Future Scheduled 2029-03-23 Screening for malignant [facility] 00:00:00 neoplasm of colon Medical Ce [facility] (procedure) [code = 647280629] Future Scheduled 2029-03-23 Screening for malignant [facility] 00:00:00 neoplasm of colon Medical Ce [facility] (procedure) [code = 715870904] Future Scheduled 2029-03-23 Screening for malignant [facility] 00:00:00 neoplasm of colon Medical Ce [facility] (procedure) [code = 616013751] Future Scheduled 2029-03-23 Screening for malignant [facility] 00:00:00 neoplasm of colon Medical Ce [facility] (procedure) [code = 184226803] Future Scheduled 2029-03-23 Screening for malignant [facility] 00:00:00 neoplasm of colon Medical Ce [facility] (procedure) [code = 752877271] Future Scheduled 2029-03-23 Screening for malignant [facility] 00:00:00 neoplasm of colon Medical Ce [facility] (procedure) [code = 249209566] Future Scheduled 2023-05-24 IMM Influenza Seasonal H [...] Seasonal (>/= 19 yrs)] Future Scheduled 2023-04-24 IMM Influenza [facility] [code = INFLUENZA VACCINE [facility] (#1)] Future Scheduled 2020-02-14 SHINGLES VACCINES [facility] 2[facility] [code = [facility] VACCINES (1 of 2)] Future Scheduled 2020-02-14 SHINGLES VACCINES ([address] [facility] 00:00:00 2) [code = [facility] VACCINES (1 of 2)] Future Scheduled 2020-02-14 Screening for malignant [facility] 00:00:00 neoplasm of colon (procedure) [code = 211012094] Future Scheduled 2020-02-14 Screening for malignant [facility] 00:00:00 neoplasm of colon (procedure) [code = 762413351] Future Scheduled 2020-02-14 Screening for malignant [facility] 00:00:00 neoplasm of colon (procedure) [code = 118616000] Future Scheduled 2020-02-14 Screening for malignant [facility] 00:00:00 neoplasm of colon (procedure) [code = 885393836] Future Scheduled 2020-02-14 Screening for malignant [facility] 00:00:00 neoplasm of colon (procedure) [code = 591062094] Future Scheduled 2020-02-14 Screening for malignant [facility] 00:00:00 neoplasm of colon (procedure) [code = 589242461] Future Scheduled 2020-02-14 Screening for malignant [facility] 00:00:00 neoplasm of colon (procedure) [code = 312671042] Future Scheduled 2020-02-14 Screening for malignant [facility] 00:00:00 neoplasm of colon (procedure) [code = 837326589] Future Scheduled 2020-02-14 Screening for malignant [facility] 00:00:00 neoplasm of colon (procedure) [code = 547734479] Future Scheduled 2020-02-14 Screening for malignant [facility] 00:00:00 neoplasm of colon (procedure) [code = 533827578] Future Scheduled 2020-02-14 Screening for malignant [facility] 00:00:00 neoplasm of colon (procedure) [code = 146302116] Future Scheduled 2020-02-14 Screening for malignant [facility] 00:00:00 neoplasm of colon (procedure) [code = 619522862] Future Scheduled 2020-02-14 Screening for malignant [facility] 00:00:00 neoplasm of colon (procedure) [code = 250488063] Future Scheduled 2020-02-14 Screening for malignant [facility] 00:00:00 neoplasm of colon (procedure) [code = 978956833] Future Scheduled 2020-02-14 Screening for malignant [facility] 00:00:00 neoplasm of colon (procedure) [code = 810009355] Future Scheduled 2020-02-14 Screening for malignant [facility] 00:00:00 neoplasm of colon (procedure) [code = 433358943] Future Scheduled 2020-02-14 Screening for malignant [facility] 00:00:00 neoplasm of colon (procedure) [code = 829470619] Future Scheduled 2020-02-14 Screening for malignant [facility] 00:00:00 neoplasm of colon (procedure) [code = 367627383] Future Scheduled 2020-02-14 Screening for malignant [facility] 00:00:00 neoplasm of colon (procedure) [code = 784035828] Future Scheduled 2020-02-14 Screening for malignant [facility] 00:00:00 neoplasm of colon (procedure) [code = [id number]] Future Scheduled 2020-02-14 Screening for malignant [facility] 00:00:00 neoplasm of colon (procedure) [code = [id number]] Future Scheduled 2020-02-14 Screening for malignant [facility] 00:00:00 neoplasm of colon (procedure) [code = 216620863] Future Scheduled 2020-02-14 Screening for malignant [facility] 00:00:00 neoplasm of colon (procedure) [code = 119639717] Future Scheduled 2020-02-14 Screening for malignant [facility] 00:00:00 neoplasm of colon (procedure) [code = 405478680] Future Scheduled 2020-02-14 Screening for malignant [facility] 00:00:00 neoplasm of colon (procedure) [code = 101378962] Future Scheduled 2020-02-14 Screening for malignant [facility] 00:00:00 neoplasm of colon (procedure) [code = 114662937] Future Scheduled 2020-02-14 Screening for malignant [facility] 00:00:00 neoplasm of colon (procedure) [code = 595539907] Future Scheduled 2020-02-14 Screening for malignant [facility] 00:00:00 neoplasm of colon (procedure) [code = 066753562] Future Scheduled 2020-02-14 SHINGLES VACCINES ([address] [facility] 00:00:00 2) [code = [facility] VACCINES (1 of 2)] Future Scheduled 2005 Lipid panel (procedure) [facility] 00:00:00 [code = 36865725] Medical Ce nter Future Scheduled 2005 Lipid panel (procedure) [facility] 00:00:00 [code = 42826946] Medical Ce nter Future Scheduled 2005 Lipid panel (procedure) [facility] 00:00:00 [code = 08206062] Medical Ce nter Future Scheduled 2005 Lipid panel (procedure) [facility] 00:00:00 [code = 43048500] Medical Ce nter Future Scheduled 2005 Lipid panel (procedure) [facility] 00:00:00 [code = 63607263] Medical Ce nter Future Scheduled 2005 Lipid panel (procedure) [facility] 00:00:00 [code = 11283054] Medical Ce nter Future Scheduled 2005 Lipid panel (procedure) [facility] 00:00:00 [code = 13235419] Medical Ce nter Future Scheduled 2005 Lipid panel (procedure) [facility] 00:00:00 [code = 72593833] Medical Ce nter Future Scheduled 2005 Lipid panel (procedure) [facility] 00:00:00 [code = 36041128] Medical Ce nter Future Scheduled 2005 Lipid panel (procedure) [facility] 00:00:00 [code = 82537413] Medical Ce nter Future Scheduled 2005 Lipid panel (procedure) [facility] 00:00:00 [code = 55869628] Medical Ce nter Future Scheduled 2005 Lipid panel (procedure) [facility] 00:00:00 [code = 42140946] Medical Ce nter Future Scheduled 2005 Lipid panel (procedure) [facility] 00:00:00 [code = 71146499] Medical Ce nter Future Scheduled 2005 Lipid panel (procedure) [facility] 00:00:00 [code = 22300258] Medical Ce nter Future Scheduled 2005 Lipid panel (procedure) [facility] 00:00:00 [code = 13482907] Medical Ce nter Future Scheduled 2005 Lipid panel (procedure) [facility] 00:00:00 [code = 64776556] Medical Ce nter Future Scheduled 2005 Lipid panel (procedure) [facility] 00:00:00 [code = 04983232] Medical Ce nter Future Scheduled 2005 Lipid panel (procedure) [facility] 00:00:00 [code = 83122887] Medical Ce nter Future Scheduled 2005 Lipid panel (procedure) [facility] 00:00:00 [code = 71219256] Medical Ce nter Future Scheduled 2005 Lipid panel (procedure) [facility] 00:00:00 [code = 44751567] Medical Ce nter Future Scheduled 2005 Lipid panel (procedure) [facility] 00:00:00 [code = 27083215] Medical Ce nter Future Scheduled 2005 Lipid panel (procedure) [facility] 00:00:00 [code = 42946065] Medical Ce nter Future Scheduled 2005 Lipid panel (procedure) [facility] 00:00:00 [code = 93425366] Medical Ce nter Future Scheduled 2005 Lipid panel (procedure) [facility] 00:00:00 [code = 73680128] Medical Ce nter Future Scheduled 2005 Lipid panel (procedure) [facility] 00:00:00 [code = 74977657] Medical Ce nter Future Scheduled 2005 Lipid panel (procedure) [facility] 00:00:00 [code = 50762717] Medical Ce nter Future Scheduled 2005 Lipid panel (procedure) [facility] 00:00:00 [code = 19430421] Medical Ce nter Future Scheduled 2005 Lipid panel (procedure) [facility] 00:00:00 [code = 52030068] Medical Ce nter Future Scheduled 2005 Lipid panel (procedure) [facility] 00:00:00 [code = 55996404] Medical Ce nter Future Scheduled 2005 Lipid panel (procedure) [facility] 00:00:00 [code = 05319485] Medical Ce nter Future Scheduled 2005 Lipid panel (procedure) [facility] 00:00:00 [code = 50443991] Medical Ce nter Future Scheduled 1989 DTAP/TDAP/TD [...] [facility] [code = 643628109] Future Scheduled [address] [facility]00 virus screening [facility] (procedure) [code = 595321889] Future Scheduled [address] [facility] 00:[facility]:00 virus screening [facility] (procedure) [code = 695497272] Future Scheduled [address] [facility] 00:00:00 virus screening [facility] (procedure) [code = 759146520] Future Scheduled [address] Test 00:00:00 [code = COVID-19 VACCINE [facility])] Future Scheduled 1970 Screening for malignant [facility] 00:00:00 neoplasm of colon Medical Ce nter (procedure) [code = 679449894] Future Scheduled 1970 Screening for malignant [facility] 00:00:00 neoplasm of colon Medical Ce [facility]ter (procedure) [code = 278144815] Future Scheduled 1970 Sigmoidoscopy [facility]] [facility] Cent[facility] Future Scheduled 1970 CT Colonography (combo) [facility] 00:00:00 [code = CT Colonography [facility] (combo)] Future Scheduled 1970 Screening for malignant [facility] 00:00:00 neoplasm of colon Medical Ce [facility]ter (procedure) [code = 301307891] Future Scheduled 1970 Screening for malignant [facility] 00:00:00 neoplasm of colon Medical Ce [facility]ter (procedure) [code = 664565195] Future Scheduled 1970 Sigmoidoscopy [facility]code [facility] S[facility]oscopy] [facility] Cent[facility] Future Scheduled 1970 CT Colonography (combo) [facility] 00:00:00 [code = CT Colonography [facility] (combo)] Future Scheduled 1970 Screening for malignant [facility] 00:00:00 neoplasm of colon Medical Ce nter (procedure) [code = 977873875] Future Scheduled 1970 Screening for malignant [facility] 00:00:00 neoplasm of colon Medical Ce [facility]ter (procedure) [code = 085465344] Future Scheduled 1970 Sigmoidoscopy [facility] S[facility]oscopy] [facility] Cent[facility] Future Scheduled 1970 CT Colonography (combo) [facility] 00:00:00 [code = CT [facility] ([facility])] Future Scheduled 1970 Screening for malignant [facility] 00:00:00 neoplasm of colon Medical Ce nter (procedure) [code = 762961901] Future Scheduled 1970 Screening for malignant [facility] 00:00:00 neoplasm of colon Medical Ce [facility]ter (procedure) [code = 680588809] Future Scheduled 1970 Sigmoidoscopy [facility]code [facility] S[facility]oscopy] [facility] Cent[facility] Future Scheduled 1970 CT Colonography (combo) [facility] 00:00:00 [code = CT [facility] ([facility])] Future Scheduled 1970 Screening for malignant [facility] 00:00:00 neoplasm of colon Medical Ce [facility]ter (procedure) [code = 571432548] Future Scheduled 1970 Screening for malignant [facility] 00:00:00 neoplasm of colon Medical Ce [facility]ter (procedure) [code = 537517584] Future Scheduled 1970 Sigmoidoscopy [facility]code = [facility] S[facility]oscopy] [facility] Cent[facility] Future Scheduled 1970 CT Colonography (combo) [facility] 00:00:00 [code = CT [facility] ([facility])] Future Scheduled 1970 Screening for malignant [facility] 00:00:00 neoplasm of colon Medical Ce nter (procedure) [code = 786377979] Future Scheduled 1970 Screening for malignant [facility] 00:00:00 neoplasm of colon Medical Ce nter (procedure) [code = 514420286] Future Scheduled 1970 Sigmoidoscopy [code = [facility] S[facility]oscopy] [facility] Cent[facility] Future Scheduled 1970 CT Colonography (combo) [facility] 00:00:00 [code = CT [facility] ([facility])] Future Scheduled 1970 Screening for malignant [facility] 00:00:00 neoplasm of colon Medical Ce nter (procedure) [code = 299738710] Future Scheduled 1970 Screening for malignant [facility] 00:00:00 neoplasm of colon Medical Ce nter (procedure) [code = 846184622] Future Scheduled 1970 Sigmoidoscopy [facility]code [facility] S[facility]oscopy] [facility] Cent[facility] Future Scheduled 1970 CT Colonography (combo) [facility] 00:00:00 [code = CT [facility] ([facility])] Future Scheduled 1970 Screening for malignant [facility] 00:00:00 neoplasm of colon Medical Ce nter (procedure) [code = 402121845] Future Scheduled 1970 Screening for malignant [facility] 00:00:00 neoplasm of colon Medical Ce nter (procedure) [code = 097214352] Future Scheduled 1970 Sigmoidoscopy [facility]code [facility] S[facility]oscopy] [facility] Cent[facility] Future Scheduled 1970 CT Colonography (combo) [facility] 00:00:00 [code = CT [facility]ography [facility] ([facility])] Future Scheduled 1970 Screening for malignant [facility] 00:00:00 neoplasm of colon Medical Ce nter (procedure) [code = 052021173] Future Scheduled 1970 Screening for malignant [facility] 00:00:00 neoplasm of colon Medical Ce nter (procedure) [code = 782993231] Future Scheduled 1970 Sigmoidoscopy [facility]code = [facility] S[facility]oidoscopy] [facility] Cent[facility] Future Scheduled 1970 CT Colonography (combo) [facility] 00:00:00 [code = CT [facility] ([facility])] Future Scheduled 1970 Screening for malignant [facility] 00:00:00 neoplasm of colon Medical Ce nter (procedure) [code = 674225916] Future Scheduled 1970 Screening for malignant [facility] 00:00:00 neoplasm of colon Medical Ce nter (procedure) [code = 234565710] Future Scheduled 1970 Sigmoidoscopy [facility]code = [facility] S[facility]oidoscopy] [facility] Cent[facility] Future Scheduled 1970 CT Colonography (combo) [facility] 00:00:00 [code = CT [facility] ([facility])] Future Scheduled 1970 Screening for malignant [facility] 00:00:00 neoplasm of colon Medical Ce nter (procedure) [code = 065899700] Future Scheduled 1970 Screening for malignant [facility] 00:00:00 neoplasm of colon Medical Ce nter (procedure) [code = 150530994] Future Scheduled 1970 Sigmoidoscopy [facility]code = [facility] S[facility]oidoscopy] [facility] Cent[facility] Future Scheduled 1970 CT Colonography (combo) [facility] 00:00:00 [code = CT [facility]ography [facility] ([facility])] Future Scheduled 1970 Screening for malignant [facility] 00:00:00 neoplasm of colon Medical Ce nter (procedure) [code = 982226713] Future Scheduled 1970 Screening for malignant [facility] 00:00:00 neoplasm of colon Medical Ce nter (procedure) [code = 667820332] Future Scheduled 1970 Sigmoidoscopy [facility]code = [facility] S[facility]oidoscopy] [facility] Cent[facility] Future Scheduled 1970 CT Colonography (combo) [facility] 00:00:00 [code = CT [facility] ([facility])] Future Scheduled 1970 Screening for malignant [facility] 00:00:00 neoplasm of colon Medical Ce nter (procedure) [code = 884748427] Future Scheduled 1970 Screening for malignant [facility] 00:00:00 neoplasm of colon Medical Ce nter (procedure) [code = 353584231] Future Scheduled 1970 Sigmoidoscopy [code = [facility] 00:[facility] S[facility]oidoscopy] [facility] Cent[facility] Future Scheduled 1970 CT Colonography (combo) [facility] 00:00:00 [code = CT [facility]ography [facility] ([facility])] Future Scheduled 1970 Screening for malignant [facility] 00:00:00 neoplasm of colon Medical Ce nter (procedure) [code = 309458547] Future Scheduled 1970 Screening for malignant [facility] 00:00:00 neoplasm of colon Medical Ce nter (procedure) [code = 430425109] Future Scheduled 1970 Sigmoidoscopy [code = [facility] 00:[facility] Sigmoidoscopy] Medical Cent[facility] Future Scheduled 1970 CT Colonography (combo) [facility] 00:00:00 [code = CT [facility]ography [facility] ([facility])] Future Scheduled 1970 Screening for malignant [facility] 00:00:00 neoplasm of colon Medical Ce nter (procedure) [code = 752844558] Future Scheduled 1970 Screening for malignant [facility] 00:00:00 neoplasm of colon Medical Ce nter (procedure) [code = 149706846] Future Scheduled 1970 Sigmoidoscopy [code = [facility] 00:[facility] S[facility]oidoscopy] [facility] Cent[facility] Future Scheduled 1970 CT Colonography (combo) [facility] 00:00:00 [code = CT [facility]ography [facility] ([facility])] Future Scheduled 1970 Screening for malignant [facility] 00:00:00 neoplasm of colon Medical Ce nter (procedure) [code = 384912223] Future Scheduled 1970 Screening for malignant [facility] 00:00:00 neoplasm of colon Medical Ce nter (procedure) [code = 220697657] Future Scheduled 1970 Sigmoidoscopy [code = [facility] 00:[facility] S[facility]oidoscopy] [facility] Cent[facility] Future Scheduled 1970 CT Colonography (combo) [facility] 00:00:00 [code = CT [facility]ography [facility] ([facility])] Future Scheduled 1970 Screening for malignant [facility] 00:00:00 neoplasm of colon Medical Ce nter (procedure) [code = 505351630] Future Scheduled 1970 Screening for malignant [facility] 00:00:00 neoplasm of colon Medical Ce nter (procedure) [code = 724404734] Future Scheduled 1970 Sigmoidoscopy [code = [facility] S[facility]oidoscopy] [facility] Cent[facility] Future Scheduled 1970 CT Colonography (combo) [facility] 00:00:00 [code = CT [facility] ([facility])] Future Scheduled 1970 Screening for malignant [facility] 00:00:00 neoplasm of colon Medical Ce nter (procedure) [code = 616560552] Future Scheduled 1970 Screening for malignant [facility] 00:00:00 neoplasm of colon Medical Ce nter (procedure) [code = 843184798] Future Scheduled 1970 Sigmoidoscopy [code = [facility] S[facility]oidoscopy] Medical Cent[facility] Future Scheduled 1970 CT Colonography (combo) [facility] 00:00:00 [code = CT [facility] (combo)] Future Scheduled 1970 Screening for malignant [facility] 00:00:00 neoplasm of colon Medical Ce nter (procedure) [code = 674881765] Future Scheduled 1970 Screening for malignant [facility] 00:00:00 neoplasm of colon Medical Ce nter (procedure) [code = 774347977] Future Scheduled 1970 Sigmoidoscopy [code = [facility] S[facility]oidoscopy] Medical Cent[facility] Future Scheduled 1970 CT Colonography (combo) [facility] 00:00:00 [code = CT Colonography [facility] (combo)] Future Scheduled 1970 Screening for malignant [facility] 00:00:00 neoplasm of colon Medical Ce nter (procedure) [code = 787662980] Future Scheduled 1970 Screening for malignant [facility] 00:00:00 neoplasm of colon Medical Ce nter (procedure) [code = 047212487] Future Scheduled 1970 Sigmoidoscopy [code = [facility] S[facility]oidoscopy] Medical Cent[facility] Future Scheduled 1970 CT Colonography (combo) [facility] 00:00:00 [code = CT Colonography [facility] (combo)] Future Scheduled 1970 Screening for malignant [facility] 00:00:00 neoplasm of colon Medical Ce nter (procedure) [code = 261715333] Future Scheduled 1970 Screening for malignant [facility] 00:00:00 neoplasm of colon Medical Ce nter (procedure) [code = 154807925] Future Scheduled 1970 Sigmoidoscopy [code = [facility] 00:[facility] S[facility]oidoscopy] Medical Cent[facility] Future Scheduled 1970 CT Colonography (combo) [facility] 00:00:00 [code = CT Colonography [facility] (combo)] Future Scheduled 1970 Screening for malignant [facility] 00:00:00 neoplasm of colon Medical Ce nter (procedure) [code = 691942522] Future Scheduled 1970 Screening for malignant [facility] 00:00:00 neoplasm of colon Medical Ce nter (procedure) [code = 425698705] Future Scheduled 1970 Sigmoidoscopy [code = [facility] S[facility]oscopy] [facility] r Future Scheduled 1970 CT Colonography (combo) [facility] 00:00:00 [code = CT Colonography [facility] (combo)] Future Scheduled 1970 Screening for malignant [facility] 00:00:00 neoplasm of colon Medical Ce nter (procedure) [code = 063300095] Future Scheduled 1970 Screening for malignant [facility] 00:00:00 neoplasm of colon Medical Ce nter (procedure) [code = 444761866] Future Scheduled 1970 Sigmoidoscopy [code = [facility] 00:[facility] S[facility]oidoscopy] [facility] Future Scheduled 1970 CT Colonography (combo) [facility] 00:00:00 [code = CT Colonography [facility] (combo)] Future Scheduled 1970 Screening for malignant [facility] 00:00:00 neoplasm of colon Medical Ce nter (procedure) [code = 245458109] Future Scheduled 1970 Screening for malignant [facility] 00:00:00 neoplasm of colon Medical Ce nter (procedure) [code = 159201786] Future Scheduled 1970 Sigmoidoscopy [code = [facility] 00:[facility] S[facility]oidoscopy] [facility] Future Scheduled 1970 CT Colonography (combo) [facility] 00:00:00 [code = CT [facility] ([facility])] Future Scheduled 1970 Screening for malignant [facility] 00:00:00 neoplasm of colon Medical Ce nter (procedure) [code = 779549776] Future Scheduled 1970 Screening for malignant [facility] 00:00:00 neoplasm of colon Medical Ce nter (procedure) [code = 283519495] Future Scheduled 1970 Sigmoidoscopy [code = [facility] 00:[facility] S[facility]oidoscopy] [facility] Cent[facility] Future Scheduled 1970 CT Colonography (combo) [facility] 00:00:00 [code = CT [facility] (combo)] Future Scheduled 1970 Screening for malignant [facility] 00:00:00 neoplasm of colon Medical Ce nter (procedure) [code = 861988983] Future Scheduled 1970 Screening for malignant [facility] 00:00:00 neoplasm of colon Medical Ce nter (procedure) [code = 861500996] Future Scheduled 1970 Sigmoidoscopy [code = [facility] 00:[facility] S[facility]oidoscopy] Medical Cent[facility] Future Scheduled 1970 CT Colonography (combo) [facility] 00:00:00 [code = CT [facility] (com[facility])] Future Scheduled 1970 Screening for malignant [facility] 00:00:00 neoplasm of colon Medical Ce nter (procedure) [code = 211598072] Future Scheduled 1970 Screening for malignant [facility] 00:00:00 neoplasm of colon Medical Ce nter (procedure) [code = 097503526] Future Scheduled 1970 Sigmoidoscopy [code = [facility] S[facility]oscopy] Medical Cent[facility] Future Scheduled 1970 CT Colonography (combo) [facility] 00:00:00 [code = CT [facility] (com[facility])] Future Scheduled 1970 Screening for malignant [facility] 00:00:00 neoplasm of colon Medical Ce nter (procedure) [code = 915124871] Future Scheduled 1970 Screening for malignant [facility] 00:00:00 neoplasm of colon Medical Ce nter (procedure) [code = 455247037] Future Scheduled 1970 Sigmoidoscopy [code = [facility] 00:[facility] S[facility]oidoscopy] Medical Cent[facility] Future Scheduled 1970 CT Colonography (combo) [facility] 00:00:00 [code = CT [facility] ([facility])] Future Scheduled 1970 Screening for malignant [facility] 00:00:00 neoplasm of colon Medical Ce nter (procedure) [code = 872339142] Future Scheduled 1970 Screening for malignant [facility] 00:00:00 neoplasm of colon Medical Ce nter (procedure) [code = 039715393] Future Scheduled 1970 Sigmoidoscopy [code = [facility] [...] Future Scheduled 1970 Fluoride Varnish [code = [facility] 00:00:00 Fluoride Varnish] Future Scheduled [...] [code = CT Colonography [facility] (combo)] Future Scheduled 1970 Screening for malignant [facility] 00:00:00 neoplasm of colon Medical Ce nter (procedure) [code = 362169312] Future Scheduled 1970 Screening for malignant [facility] 00:00:00 neoplasm of colon Medical Ce nter (procedure) [code = 876960229] Future Scheduled 1970 Sigmoidoscopy [facility] S[facility]oscopy] Medical Cente r Encounters Start End Encounter Admission Attending Care Care Encounter Source Date/Time Date/Time Type Type Clinicians Facility Department ID 2021-06-25 Emergency [facility] [id number] [facility] 05:25:12 [facility] 2021-06-25 Emergency [facility] [id number] [facility] 01:41:18 [facility] 2021-06-24 Emergency [facility] [id number] Univers 22:38:17 [facility] 2021-06-22 Emergency [facility] [id number] Univers 21:40:44 [facility] 2021-06-22 Emergency [facility] [id number] Univers 13:55:03 [facility] 2021-06-22 Emergency [facility] [id number] Univers 05:54:16 [facility] 2021-06-21 Emergency [facility] [id number] Univers 22:33:24 [facility] 2021-06-21 Emergency [facility] [id number] Univers 22:33:24 [facility] 2021-06-21 Emergency [facility] [id number] Univers 22:22:08 [facility] 2021-06-21 Emergency [facility] [id number] Univers 20:04:56 [facility] 2021-06-21 Emergency [facility] [id number] Univers 19:53:56 [facility] 2021-06-21 Emergency [facility] [id number] Univers 19:37:27 [facility] 2021-06-21 Emergency [facility] [id number] Univers 19:36:41 [facility] 2021-06-21 Emergency [facility] [id number] Univers 17:11:26 [facility] 2021-06-21 Emergency [facility] [id number] Univers 16:44:38 [facility] 2021-06-21 Emergency [facility] [id number] Univers 11:19:16 [facility] 2021-06-21 Emergency [facility] [id number] Univers 10:16:06 [facility] 2021-06-21 Emergency [facility] [id number] Univers 06:08:42 [facility] 2021-06-21 Emergency [facility] [id number] Univers 04:43:23 [facility] 2021-06-21 Emergency [facility] [id number] Univers 04:42:49 [facility] 2021-06-20 Emergency X GORE, [facility] PAKO [id number] Univers 18:31:02 OSMAR [facility] 2020-02-23 Inpatient [facility] LENNY [id number] [facility] 18:42:00 [address] [facility] 2020-02-17 Inpatient EM Avtar, [facility] MAS [id number] [facility] 00:22:00 Oladipo 75 [facility] 2020-01-05 Inpatient UR Eliazar, [facility] MEDI.01 [id number] [facility] 20:23:[address] [facility] 2019-12-13 Inpatient HCAMN JULIA [id number] [facility] 17:52:00 47 [facility] 2023-03-20 2023-03-20 Emergency X ROBLEDO, [facility] ERT [id number] Univers 14:28:00 17:50:00 SABI ity [facility] 2023-03-20 2023-03-20 Emergency Robledo, [facility] [id number] Univers 14:28:00 17:50:00 [facility] [id number] it y of [facility] [id number] [facility] [id number] [address] (CLC) 2023-02-12 2023-02-12 Orders Doctor BERNARDO [id number] Univers 00:00:00 00:00:00 Only Unassigned, [place] [id number] ity of [facility] 4.2.7.2.686 Javi as [phone] [facility] 009 Branch 2023-02-02 2023-02-02 Outpatient R BIA [facility] [id number] Univers 11:00:00 11:00:00 ity of [facility] 2023-01-29 2023-01-29 Transition MELANIE Vallejo 1.2.840.114 [id number] Univers 00:00:00 00:00:00 of Care Emili RECINOS 350.1.13.10 ity of [place] [phone] [facility] 403 Branch 2023-01-27 2023-01-28 Inpatient U GABRIELA [facility] PAKO [id number] Univers 16:04:00 16:30:00 BERNARDO at[facility] 2023-01-27 2023-01-28 Hospital ABILIO Ochoa 1.2.840.114 [id number] Univers 16:04:00 16:30:00 Encounter Bernardo [place] 350.1.13.10 ity [facility] 4.2.7.2.686 Javi as [phone] [facility] 092 Branch 2023-01-27 2023-01-27 Emergency EM Onicolas, HCACL AERS [id number] [facility] 08:58:00 14:58:00 Oluwadolapo 72 Cl [facility] 2023-01-26 2023-01-26 Emergency [facility] ERT [id number] Univers 18:31:00 23:50:00 LAMONT [facility] 2023-01-26 2023-01-26 [facility] 1.2.745.560 [id number] [id number] Univers 18:31:00 23:50:00 Sandor HEALTH 350.1.13.10 it y of [place] [phone] [address] ([facility]) 2022-12-22 2022-12-22 Outpatient R BIA [facility] [id number] Univers 11:15:00 11:15:00 ity of [facility] 2022-12-19 2022-12-19 Patient Laura Turcios MELANIE 1.2.840.114 10 [id number] Univers 00:00:00 00:00:00 Outreach RECINOS 350.1.13.10 i ty of [place] [phone] [address] 2022-12-14 2022-12-14 Emergency X LILA, STACEY [facility] ERT [id number] Univers 16:44:00 19:27:00 STACEY SHARP ithiram [facility] 2022-12-14 2022-12-14 Emergency Lila, TRAUMA 1.2.840.114 102 [id number] Univers 16:44:00 19:27:00 [facility] 350.1.13.10 [place] [phone] [address] 2022-12-10 2022-12-10 Patient Laura Turcios MELANIE 1.2.840.114 10 [id number] Univers 00:00:00 00:00:00 Outreach RECIN[place] 350.1.13.10 i ty of [place] [id number] [address] 2022-12-10 2022-12-10 Transition MELANIE Vallejo 1.2.840.114 102 [id number] Univers 00:00:00 00:00:00 of Care Emili RECINOS 350.1.13.10 ity [place] [id number] [address] 2022-11-27 2022-12-09 Inpatient U [facility] [id number] Univers 08:00:00 17:36:00 ity of [facility] 2022-11-27 2022-12-09 [facility] Dwain Junior 1.2.8 40.114 [id number] Univers 08:00:00 17:36:00 Encounter Narcisa Medranoadalberto Dao [place] 350.1.1 3.10 ity of [facility] 4.2.7.2.686 [place] [phone] [facility] 091 Branch 2022-12-04 2022-12-04 Surgery [facility] ABILIO 1.2.840.114 10 [id number] Univers 11:18:00 16:48:00 [place] 350.1.13.10 it y of [facility] 4.2.7.2.686 Javi as [phone] [facility] 103 Branch 2022-11-26 2022-11-26 Patient Doctor BERNARDO 1.2.840.114 [id number] Univers 00:00:00 00:00:00 Secure Msg Unassigned, [place] 350.1.13.[address] [facility] 4.2.7.2.686 [place] [phone] [facility] 019 Branch 2022-11-25 2022-11-25 Transition MELANIE Mei 1.2.840.114 10 [id number] Univers 00:00:00 00:00:00 of Care Sandy TRINIDADY 350.1.13.10 i ty of [place] [phone] [facility] 403 Branch 2022-11-24 2022-11-24 Patient Laura Turcios MELANIE 1.2.840.114 10 [id number] Univers 00:00:00 00:00:00 Outreach RECINOS 350.1.13.10 i ty of [place] [phone] [facility] 403 Branch 2022-11-19 2022-11-22 Inpatient X [facility] [id number] Univers 09:51:00 14:07:00 MONTSERRAT it y of [facility] 2022-11-19 2022-11-22 Hospital Constantin Perez 1.2.840. 114 [id number] Univers 09:51:00 14:07:00 Encounter Montserrat Hernández 350.1.13 .10 ity of HOSPITAL 4.2.7.2.686 [place] [phone] [facility] 095 Branch 2022-11-21 2022-11-21 Transition MELANIE Vallejo 1.2.840.114 101 [id number] Univers 00:00:00 00:00:00 of Care Emili RECINOS 350.1.13.10 [place]y [place] [phone] [facility] 403 Branch 2022-11-14 2022-11-14 Patient Doctor BERNARDO 1.2.840.114 [id number] Univers 00:00:00 00:00:00 Secure Msg Unassigned, [place] 350.1.13.[address] [facility] 4.2.7.2.686 [place] [phone] [facility] 019 [place] 2022-11-14 2022-11-14 Patient Doctor BERNARDO 1.2.840.114 [id number] Univers 00:00:00 00:00:00 Secure Msg Unassigned, [place] 350.1.13.[address] [facility] 4.2.7.2.686 [place] [phone] [facility] 019 [place] 2022-11-07 2022-11-07 Transition MELANIE Valdes 1.2.840.114 101 [id number] Univers 00:00:00 00:00:00 of Care Miryam RECINOS 350.1.13.10 it y [place] [phone] [facility] 403 Branch 2022-11-02 2022-11-06 Inpatient X ALEXIS NVSONAM URI [id number] [id number] Univers 07:47:00 13:27:00 BHARAT ithiram of [facility] 2022-11-02 2022-11-06 Hospital Danay Gordillo 1.2.840. 114 [id number] Univers 07:47:00 13:27:00 Encounter Bharat Medrano 350.1.1 3.10 ity of HOSPITAL 4.2.7.2.686 [place] [phone] [facility] 095 [place] 2022-10-28 2022-10-28 Telephone Angus [facility] 1.2.840.114 10 [id number] Univers 00:00:00 00:00:00 Orpheus [facility] 350.1.13.10 ity of [place].2.[place] - [phone] [facility] 408 Branch 2022-10-28 2022-10-28 [facility] 1.2.840.114 [id number] Univers 00:00:00 00:00:00 (Out) [facility] SPECIALTY 350.1.13.10 ity of Gastroenter CARE 4.2.7.2.686 [facility] AT [phone] Ca dicadalberto PARDO 072 Branch [facility] 2022-10-27 2022-10-27 Outpatient R [facility] [id number] Univers 14:00:00 14:00:00 ORPHEUS ity [facility] 2022-10-22 2022-10-[address] [facility] 1.2.840.114 10 [id number] Univers 00:00:00 00:00:00 [facility] 350.1.13.10 ity of [place].2.[place] - [phone] [facility] 408 Branch 2022-10-22 2022-10-22 Patient Doctor BERNARDO 1.2.840.114 [id number] Univers 00:00:00 00:00:00 Secure Msg Unassigned, [place] 350.1.13.[address] [facility] 4.2.7.2.686 [place] [phone] [facility] 019 Branch 2022-10-19 2022-10-19 Emergency X IBIKUNRENETTA, [facility] ERT [id number] Univers 19:16:00 22:32:00 FOLUSHO ity [facility] 2022-10-19 2022-10-19 Emergency Ibikunle, TRAUMA 1.2.840.114 10 [id number] Univers 19:16:00 22:32:00 Folusho F CENTER 350.1.13.10 it[place] [phone] [facility] 014 Branch 2022-05-22 2022-05-22 Transition ASIA VallejoN 1.2.840.114 [id number] Univers 00:00:00 00:00:00 of Care Emili RECINOS 350.1.13.10 [place] [phone] [facility] 403 Branch 2022-05-19 2022-05-21 Inpatient X [facility] [id number] Univers 19:15:00 15:48:00 PATEL ity of [facility] 2022-05-19 2022-05-21 [facility] Joel Baez [facility] 1.2.840. 114 [id number] Univers 19:15:00 15:48:00 Encounter Eros Rios 350.1.13.10 ity of Patel Rangel [place] 4.2.7.2.686 [facility] [phone] [place] 341610 Branch 2022-05-21 2022-05-21 Patient Saira Goodman MELANIE 1.2.840.114 [id number] Univers 00:00:00 00:00:00 Outreach E RECINOS 350.1.13.10 i ty of [place] [phone] [facility] 403 Branch 2022-04-14 2022-04-14 Transition ASIA ValdesEddie 1.2.840.114 [id number] Univers 00:00:00 00:00:00 of Care Miryam RECINOS 350.1.13.10 it y [place] [phone] [facility] 403 Branch 2022-04-09 2022-04-10 Emergency [facility] ERT [id number] Univers 20:38:00 00:14:00 ALVAREZ ity [facility] 2022-04-09 2022-04-10 Emergency [facility] 1.2.840.114 95 [id number] Univers 20:38:00 00:14:00 Alvarez OROPEZA 350.1.13.10 ity of [place].2.[place] [phone] [place] 341614 [place] 2022-04-09 2022-04-09 Transition MELANIE Valdes 1.2.840.114 [id number] [id number] Univers 00:00:00 00:00:00 of Care Miryam RECINOS 350.1.13.10 it y of [place] 4.2.7.2.686 Ara lopez [phone] [facility] 403 Branch 2022-04-02 2022-04-08 [facility] [id number] Univers 11:42:00 12:30:00 GENO ity o f DIOGO [facility] 2022-04-02 2022-04-08 Hospital Rekha Sheehan [facility] 1.2.840.11 4 [id number] Univers 11:42:00 12:30:00 Encounter Juventino Thomas [facility] 350.1.13.10 ity of [place] Diogo Lora [place] 4.2.7.2.686 [place] [phone] [address] ([facility]) 2022-03-29 2022-03-29 Emergency EM White, HCACL AERS [id number] [facility] 14:26:00 16:45:00 Sabi 28 [facility] 2022-03-29 2022-03-29 Emergency EM White, HCACL HCACL [id number] [facility] 14:26:00 16:45:00 Sabi [id number] [facility] 2022-03-25 2022-03-26 Inpatient E RICHARD BL MED 7503 MHBL 13:38:00 10:16:00 , YESSI 2022-03-15 2022-03-18 Emergency E [facility] 7502 [facility] 13:36:00 18:59:00 JULIO 2022-03-13 2022-03-13 Emergency MOE JAMIE 1.2.840.114 [id number] Maged 15:33:00 20:25:00 GENERAL 350.1.13.43 [facility] .2.7.2.6869 [id number] 1887-07-21 2022-03-13 Outpatient RONALD, [facility] [id number] Maged 00:00:00 00:00:00 [facility] AutoESL 2022-03-06 2022-03-09 Inpatient ER LEONIDAS JOYNER SLEGera Emergency 20 [id number] SLE 12:16:00 12:55:00 2022-03-06 2022-03-09 Hospital ER Aryan Tello [facility] [id number] [facility] 12:16:00 12:55:00 Encounter Norma Montalvo, [place] Leonidas Joyner 2022-03-06 2022-03-06 Orders [facility] [id number] 00:00:00 00:00:00 Only [facility] 2022-03-06 2022-03-06 Travel [facility] [id number] [facility] 00:[facility] 00:00:00 [facility] 2022-02-18 2022-02-20 Emergency Terrikassi Mitzi MOE AYALA 1.2.8 40.114 [id number] Molino 13:58:00 11:55:00 Alona Calvert GENERAL 350.1.13.43 [facility] .2.7.2.6869 Fannie Blake [id number] 1644-06-28 2022-02-18 Emergency [facility] [id number] Molino 15:19:05 15:23:18 [facility] 2022-02-18 2022-02-18 Outpatient 1 TEJAS [facility] [id number] Lynne 13:58:00 13:58:00 [facility] 2022-02-18 2022-02-18 Outpatient DENIZ [facility] [id number] Molino 00:00:00 00:00:00 , OSCAR boss 2022-02-07 2022-02-11 [facility] Marco McintoshB 1.2.840.1 14 [id number] Lynne 13:40:00 13:22:00 Encounter Daily Islas GENERAL 350.1.13.43 [facility] .2.7.2.6869 [id number] 3197-06-17 2022-02-07 Outpatient 1 DAILY ISLAS [facility] [id number] Lynne 13:40:00 13:40:00 [facility] 2022-01-30 2022-01-30 Emergency SEAN Pacheco [facility] [id number] [facility] 17:02:00 18:29:00 Dwain 53 [facility] 2022-01-30 2022-01-30 Emergency SEAN Pacheco [facility] [id number] [facility] 17:02:00 18:29:00 Dwain [id number] [facility] 2022-01-22 2022-01-22 Emergency [facility] [id number] Lynne 17:24:00 20:39:00 [facility] 2022-01-16 2022-01-21 Emergency Raymon Martin [facility] [id number] Lynne 11:04:00 18:08:00 Karin Bassett [facility] Sushil Craig Parth P 2022-01-19 2022-01-19 Outpatient [facility] [id number] Lynne 12:34:08 13:29:31 [facility] 2022-01-16 2022-01-16 Outpatient [facility] [id number] Molino 19:42:28 20:01:28 [facility] 2022-01-16 2022-01-16 Outpatient 1 DANYELLE [facility] [id number] Lynne 11:04:00 11:04:00 KARIN boss 2022-01-10 2022-01-11 Emergency Bert Reed [facility] [id number] Lynne 10:58:00 11:20:00 Helene Anderson [facility] FerchoBrodiephilipp Mims 2022-01-10 2022-01-10 Outpatient 1 JUSTIN [facility] [id number] Lynne 10:58:00 10:58:[address] [facility] 2022-01-08 2022-01-09 Emergency [facility] [id number] Lynne 17:57:00 02:50:00 [facility] 2022-01-08 2022-01-08 Emergency [facility] [id number] Lynne 21:40:34 21:50:19 [facility] 2021-09-23 2021-09-23 Emergency EM LeviRaffaele [facility] AERS [id number] [facility] 19:35:00 21:10:00 74 [facility] 2021-09-13 2021-09-13 Emergency X HARROSMERY, [facility] ERT [id number] Univers 21:20:00 22:36:00 MICKEY atwood [facility] 2021-09-13 2021-09-13 Emergency Harrosmery, [facility] 1.2.291.508 [id number] Univers 21:20:00 22:36:00 Mickey Escoto [facility] 350.1.13.10 it y of [place]2.[place].2.[place] [id number] [address] ([facility]) 2021-09-13 2021-09-13 Emergency EM Raffaele Levi HCACL AERS [id number] [facility] 14:57:00 16:37:00 06 [facility] 2021-09-12 2021-09-12 Emergency X MORRICAL, [facility] ERT [id number] Univers 14:25:00 17:51:00 DWAIN atwood [facility] 2021-09-12 2021-09-12 Emergency Morrical, TRAUMA 1.2.840.114 [id number] Univers 14:25:00 17:51:00 [facility] 350.1.13.10 [place] [id number] [address] 2021-09-12 2021-09-12 Emergency [facility] ERT [id number] Univers 06:20:00 10:10:00 CONSTANTIN rai [facility] 2021-09-12 2021-09-12 Emergency Alona Carty TRAUMA 1.2.840 .114 [id number] Univers 06:20:00 10:10:00 Constantin Concepcion [place] 350.1.13.10 it[place] [id number] [address] 2021-09-08 2021-09-09 Emergency X YINA, [facility] ERT [id number] Univers 23:01:00 01:30:00 SEBASTIAN rai [facility] 2021-09-08 2021-09-09 Emergency Pacheco, TRAUMA 1.2.403.340 [id number] Univers 23:01:00 01:30:00 Sebastian L CENTER 350.1.13.10 it[place] [id number] [facility] 014 Branch 2021-09-07 2021-09-07 Emergency X YINA [facility] ERT [id number] Univers 19:24:00 23:44:00 SEBASTIAN ity of [facility] 2021-09-07 2021-09-07 Emergency Pacheco, TRAUMA 1.2.204.829 [id number] [id number] Univers 19:24:00 23:44:00 Sebastian L [place] 350.1.13.10 ity [place]2.[place] [id number] [facility] 014 Branch 2021-09-06 2021-09-06 Emergency [facility] ERT [id number] Univers 15:35:00 17:52:00 SEBASTIAN ity of [facility] 2021-09-06 2021-09-06 Emergency Pacheco, TRAUMA 1.2.239.959 [id number] Univers 15:35:00 17:52:00 Sebastian [facility] 350.1.13.10 it[place] [id number] [facility] 014 Branch 2021-09-06 2021-09-06 Transition MELANIE Vallejo 1.2.840.114 [id number] Univers 00:00:00 00:00:00 of Care Emili RECINOS 350.1.13.10 it[place] [id number] [facility] 403 Branch 2021-08-30 2021-09-05 Inpatient X BIA PEDRO [facility] PAKO [id number] Univers 16:53:00 16:00:00 ity of [facility] 2021-08-30 2021-09-05 [facility] Gayatri Gu 1 .2.840.114 [id number] Univers 16:53:00 16:00:00 Encounter Sophia Andrea 350.1 .13.10 ity of [facility] 4.2.7.2.686 [facility] [id number] Medical 097 Branch 2021-09-03 2021-09-03 Surgery [facility] ABILIO 1.2.840.114 [id number] Univers 07:15:00 10:04:00 [place] 350.1.13.10 it y of HOSPITAL 4.2.7.2.686 Javi as [phone] [facility] 103 Branch 2021-08-29 2021-08-29 Emergency X IBIKUNLE, [facility] ERT [id number] Univers 17:15:00 20:03:00 FOLUSHO ity of [facility] 2021-08-29 2021-08-29 Emergency Ibikunle, TRAUMA 1.2.840.114 [id number] Univers 17:15:00 20:03:00 [facility] 350.1.13.10 it[place]2.[place] [id number] [facility] 014 Branch 2021-07-29 2021-08-05 Inpatient X [facility] PAKO [id number] Univers 20:15:00 07:43:00 ity of [facility] 2021-07-29 2021-08-05 Hospital Jonah Rees 1.2.840.1 14 [id number] Univers 20:15:00 07:43:00 Encounter Karin Myers 350.1.13.1 0 ity of [facility] 4.2.7.2.686 [place] [phone] [facility] 091 Branch 2021-07-29 2021-07-29 Transition MELANIE Vallejo 1.2.840.114 [id number] Univers 00:00:00 00:00:00 of Care Emili RECINOS 350.1.13.10 [place] [phone] [facility] 403 Branch 2021-07-27 2021-07-27 Emergency EM Kateryna, HCAMN JULIA [id number] [facility] 10:15:00 12:36:00 Juan Jose [address] [place] [address] 2021-07-23 2021-07-26 Inpatient X BIA PEDRO [facility] PAKO [id number] Univers 00:39:00 14:50:00 ity of [facility] 2021-07-23 2021-07-26 Hospital Sabi SchultzNIE 1.2.840 .114 [id number] Univers 00:39:00 14:50:00 Encounter Bia Pedro 350.1.13.10 ity of HOSPITAL 4.2.7.2.686 Javi as [phone] [facility] 093 Branch 2021-07-22 2021-07-22 Emergency EM Marcelina, [facility] AERS [id number] [facility] 04:25:00 08:20:00 Tarrell 74 [facility] 2021-06-27 2021-06-27 Emergency EM Bridgett, [facility] AERS [id number] [facility] 15:31:00 17:37:00 Sabi Pollard [facility] 2021-06-25 2021-06-25 Orders Doctor BERNARDO 1.2.840.114 [id number] Univers 00:00:00 00:00:00 Only Unassigned, [place] 350.1.13.[address] [facility] 4.2.7.2.686 Javi as [phone] [facility] 009 Branch 2021-05-31 2021-06-04 Emergency Willie Garrett [facility] 1.2.840.1 14 [id number] Univers 17:10:00 16:38:00 Clementine [facility] 350.1.13.10 ity of Sabi Gann 4.2.7.2.686 [place] Tamika Lyle Bhatt [phone] [address] ([facility]) 2021-05-20 2021-05-21 Emergency Bernardo Donnelly [facility] 1.2.840.114 [id number] Univers 14:29:00 17:10:00 [facility] 350.1.13.10 ity of [place].2.[place] [phone] [address] ([facility]) 2021-05-10 2021-05-10 Transition Melanie Vallejo 1.2.840.114 [id number] Univers 00:00:00 00:00:00 of Care Emili Recinos 350.1.13.10 ity of [place] 4.2.7.2.686 [place] [id number] [facility] 403 Branch 2021-05-07 2021-05-09 Hospital Alona Pérez [facility] 1.2.840.11 4 [id number] Univers 19:23:00 15:26:00 Encounter Diogo [facility] 350.1.13. 10 ity of Abad Watson [place] 4.2.7.2.686 [place] Bhatt [id number] [facility] 114 Branch ([facility]) 2021-04-28 2021-05-01 Inpatient [facility] [id number] [facility] 21:05:00 14:18:00 Montserrat 03 [facility] 2020-09-26 2020-09-26 Emergency Jose [facility] 1.2.980.404 [id number] Univers 16:56:00 23:00:00 Mariaelena Oropeza 350.1.13.10 i ty of [place] 4.2.7.2.686 [place] [phone] [facility] 084 Branch 2020-08-22 2020-08-24 Emergency Funmilayo iPnzon [facility] 1.2.8 40.114 [id number] Univers 15:31:00 14:20:00 SweeneyBart malik Health 350.1.13.10 ity of Ori Persaud [place] 4.2.7.2.686 [place] [id number] [facility] 114 Branch ([facility]) 2020-07-09 2020-07-09 Emergency Umbertoeki [facility] 1.2.840.114 [id number] Univers 16:23:00 19:43:00 , Juan M Health 350.1.13.10 ity [place] [phone] [facility] 014 Branch ([facility]) 2020-06-15 2020-06-15 Patient Saira Goodman Melanie 1.2.840.114 [id number] Univers 00:00:00 00:00:00 Outreach E Recinos 350.1.13.10 i ty of [place].7.2.[place] [phone] [address] 2020-06-12 2020-06-12 Patient Saira Goodman 1.2.840.114 [id number] Univers 00:00:00 00:00:00 Outreach E Recinos 350.1.13.10 i ty of [place] 4.2.7.2.[place] [id number] [address] 2020-06-08 2020-06-08 Patient Melanie Emanuel 1.2.840.114 [id number] Univers 00:00:00 00:00:00 Outreach Mela Arvizu Recinos 350.1.13.10 ity [phone] [address] 2020-06-07 2020-06-07 Patient Saira Goodman 1.2.840.114 [id number] [facility] 00:00:00 00:00:00 Outreach E Recinos 350.1.13.10 [place] [phone] [address] 2020-06-05 2020-06-05 [facility] 1.2.840.114 [id number] Univers 06:47:00 10:55:00 More Oropeza 350.1.13.10 [place] [phone] [facility] [address] 2020-06-04 2020-06-04 [facility] [id number] Univers 10:36:00 13:38:00 [facility] 350.1.13.10 [place] [phone] [facility] [address] ([facility]) 2020-06-04 2020-06-04 Patient Saira Goodman 1.2.840.114 [id number] Univers 00:00:00 00:00:00 Outreach E Recinos 350.1.13.10 [place] [phone] [address] 2020-06-04 2020-06-04 Patient Asia Emanueleddie 1.2.840.114 [id number] Univers 00:00:00 00:00:00 Outreach Mela Arvizu Recinos 350.1.13.10 [place] [phone] [address] 2020-06-01 2020-06-01 Transition Melanie Vallejo 1.2.840.114 [id number] Univers 00:00:00 00:00:00 of Care Emili Recinos 350.1.13.10 [place] [phone] [address] 2020-05-22 2020-05-31 [facility] Colette Alex Avila 1.2.840.11 [id number] Univers 14:42:00 18:40:00 Encounter LeonardoctaviaBia 350.1.13.10 ity of Hospital 4.2.7.2.686 [place] [phone] [address] 2020-05-31 2020-05-31 Patient Saira Goodman 1.2.840.114 [id number] [facility] 00:00:00 00:00:00 Outreach E Recinos 350.1.13.10 [place] [phone] [address] 2020-05-23 2020-05-23 Patient Saira Goodmaneddie 1.2.840.114 [id number] Univers 00:00:00 00:00:00 Outreach E Recinos 350.1.13.10 [place] [phone] [address] 2020-05-23 2020-05-23 Patient Saira Goodmaneddie 1.2.840.114 78 [id number] Univers 00:00:00 00:00:00 Outreach E Recinos 350.1.13.10 [place] [phone] [address] 2020-05-23 2020-05-23 Patient Asia Emanueleddie 1.2.840.114 [id number] Univers 00:00:00 00:00:00 Outreach Mela Arvizu Recinos 350.1.13.10 [place] [phone] [address] 2020-05-21 2020-05-21 Emergency [facility] 1.2.764.712 [id number] Univers 20:52:00 23:41:00 [facility] 350.1.13.10 [place] [phone] [address] ([facility]) 2020-05-20 2020-05-20 Emergency Unknown, [place] 1.2.840.114 [id number] Univers 07:04:00 15:13:00 Attending CENTER 350.1.13.10 [place] [phone] [address] 2020-05-19 2020-05-20 Emergency [facility] 1.2.840.114 7 [id number] Univers 21:29:00 06:12:00 [facility] 350.1.13.10 [place] [phone] [address] ([facility]) 2020-05-18 2020-05-18 Patient Saira Goodmaneddie 1.2.840.114 78 [id number] Univers 10:18:59 11:28:59 Outreach E Recinos 350.1.13.10 [place] [phone] [address] 2020-05-18 2020-05-18 Patient JenaeAsiaeddie 1.2.840.114 [id number] Univers 00:00:00 00:00:00 Outreach Mela Trinidady 350.1.13.10 [place] [phone] [address] 2020-05-17 2020-05-17 Patient Saira Goodman Melanie 1.2.840.114 78 [id number] Univers 00:00:00 00:00:00 Outreach E Recinos 350.1.13.10 [place] [phone] [facility] [address] 2020-05-17 2020-05-17 Patient Melanie Emanuel 1.2.840.114 [id number] Univers 00:00:00 00:00:00 Outreach Mela Arvizu Recinos 350.1.13.10 [place] [phone] [address] 2020-05-16 2020-05-16 Patient Doctor [facility] 1.2.600.463 [id number] Univers 00:00:00 00:00:00 Secure Msg Unassigned, Y HEALTH 350.1.13.[address] [facility] [place] [phone] [facility] [address] 2020-05-15 2020-05-15 Patient Asia Emanueleddie 1.2.840.114 [id number] Univers 00:00:00 00:00:00 Outreach Mela Recinos 350.1.13.10 [place] [phone] [address] 2020-05-14 2020-05-14 Transition Melanie Vallejo 1.2.840.114 [id number] Univers 00:00:00 00:00:00 of Care Emili Recinos 350.1.13.10 [place] [phone] [address] 2020-05-04 2020-05-12 Hospital [facility] 1.2. 840.114 [id number] Univers 21:09:00 14:03:00 Encounter Carol Ann Jason 350.1.13.10 ity of Hospital 4.2.7.2.686 Javi as [phone] [facility] [address] 2020-05-10 2020-05-10 Patient Saira Goodman 1.2.840.114 [id number] Univers 00:00:00 00:00:00 Outreach Heidi Trinidady 350.1.13.10 [place] [phone] [address] 2020-05-09 2020-05-09 Transition Asia Vallejoeddie 1.2.840.114 [id number] [id number] Univers 00:00:00 00:00:00 of Care Emili Recinos 350.1.13.10 [place] [phone] [address] 2020-05-08 2020-05-08 Patient Saira Goodman 1.2.840.114 78 [id number] Univers 00:00:00 00:00:00 Outreach E Recinos 350.1.13.10 [place] [phone] [address] 2020-05-02 2020-05-03 Emergency Critical access hospital 1.2.082.755 [id number] Univers 23:37:00 01:53:00 [place] 350.1.13.10 ity of [place].2.[place] [phone] [address] 2020-05-03 2020-05-03 Patient Saira Goodman 1.2.840.114 78 [id number] Univers 00:00:00 00:00:00 Outreach E Recinos 350.1.13.10 [place] [phone] [address] 2020-05-03 2020-05-03 Transition Melanie Vallejo 1.2.840.114 [id number] Univers 00:00:00 00:00:00 of Care Emili Recinos 350.1.13.10 [place] [phone] [address] 2020-03-30 2020-05-02 Hospital Alex Lopez 1.2.840.11 4 [id number] Univers 16:55:00 16:45:00 Encounter Diogo Keane 350.1.13. 10 ity of [facility] 4.2.7.2.686 [place] [id number] [address] 2020-04-06 2020-04-06 Anesthesia Dana Sampson 1.2.8 40.114 [id number] Univers 09:10:00 11:29:00 Cynthia Herring 350.1.1 3.10 ity of Hospital 4.2.7.2.686 Javi as [phone] [facility] [address] 2020-03-29 2020-03-29 Transition Melanie Vallejo 1.2.840.114 [id number] Univers 00:00:00 00:00:00 of Care Emili Recinos 350.1.13.10 [place] [phone] [facility] [address] 2020-03-25 2020-03-28 [facility] Bernardo Donnelly [facility] 1.2.840.114 [id number] Univers 19:12:00 18:43:00 Encounter Simin, [facility] 350.1.13.1 0 [place] [phone] [facility] [address] ([facility]) 2020-03-07 2020-03-07 Transition Melanie Vallejo 1.2.840.114 [id number] Univers 00:00:00 00:00:00 of Care Emili Recinos 350.1.13.10 [place] [phone] [facility] [address] 2020-03-02 2020-03-05 [facility] Sabi Robledo [facility] 1.2.840.11 4 [id number] Univers 19:53:34 17:23:00 Encounter Eliu [facility] 350.1.13.10 ity of [place], Radmargarethyam [place] 4.2.7.2.686 [place] [phone] [facility] [address] ([facility]) 2020-02-29 2020-02-29 Transition Melanie Vallejo 1.2.840.114 [id number] Univers 00:00:00 00:00:00 of Care Emili Recinos 350.1.13.10 [place] [phone] [facility] [address] 2020-02-26 2020-02-27 Hospital Juventino Mccabe 1.2.840.11 4 [id number] Univers 04:55:41 19:20:00 Encounter Bia Pedro 350.1.13.10 ity of Hospital 4.2.7.2.686 Javi as [phone] [facility] [address] 2020-02-27 2020-02-27 Patient Saira Goodman Melanie 1.2.840.114 [id number] Univers 00:00:00 00:00:00 Outreach E Recinos 350.1.13.10 [place] [phone] [facility] [address] 2020-02-25 2020-02-26 Emergency [facility] 1.2.889.926 [id number] Univers 21:25:58 03:55:00 [facility] 350.1.13.10 it [place] [phone] [facility] [address] ([facility]) 2020-02-24 2020-02-24 Outpatient Perea, HCACL LABO [id number] [facility] 07:51:00 07:51:00 Mark 96 [facility] 2020-02-18 2020-02-18 Outpatient Avtar, HCACL LABO [id number] [facility] 00:26:00 00:26:00 Oladipo 05 [facility] 2020-02-07 2020-02-07 Transition Melanie Vallejo 1.2.840.114 [id number] 00:00:00 00:00:00 of Care Emili Recinos 350.1.13.10 [place] [phone] [facility] 2020-02-07 2020-02-07 Transition Melanie Vallejo 1.2.840.114 [id number] Univers 00:00:00 00:00:00 of Care Emili Recinos 350.1.13.10 [place] [id number] [facility] [address] 2020-01-28 2020-02-05 Hospital Bernardo Donnelly [facility] 1.2.840.114 [id number] 18:12:56 15:12:00 Encounter [facility] 350.1.13.10 [place], Radheshyam [place] 4.2.7.2.686 [place] [phone] [place] [address] ([facility]) 2020-01-28 2020-02-05 Inpatient X [facility] [id number] Univers 18:12:56 15:12:00 RADHESHYAM ity of [facility] 2020-01-28 2020-02-05 Hospital Bernardo Donnelly [facility] 1.2.840.114 [id number] Univers 18:12:56 15:12:00 Encounter [facility] 350.1.13.10 ity of [place], Radheshyam [place] 4.2.7.2.686 [facility] [place] [facility] [phone] [facility] [address] ([facility]) 2020-01-24 2020-01-26 Emergency Sabi Robledo [facility] 1.2.840.1 14 [id number] Univers 18:46:34 19:35:00 [facility] 350.1.13.10 ity of [place], Radheshyam [place] 4.2.7.2.686 [facility] [place] [facility] [phone] [facility] [address] ([facility]) 2020-01-24 2020-01-26 Outpatient X [facility] [id number] Univers 18:46:34 19:35:00 RADHESHYAM ity of [facility] 2020-01-24 2020-01-26 Emergency RobledoSabi simons [facility] 1.2.840.1 14 [id number] 18:46:34 19:35:00 [facility] 350.1.13.10 [place]in, Radheshyam [place] 4.2.7.2.686 [place] [phone] [facility] 109 ([facility]) 2020-01-05 2020-01-05 Outpatient JOE Perea [facility] [id number] [facility] 23:52:00 23:52:00 [facility] 2019-12-28 2019-12-28 Orders Doctor BERNARDO 1.2.840.114 [id number] Univers 00:00:00 00:00:00 Only Unassigned, [place] 350.1.13.[address] [facility] 4.2.7.2.686 Javi as [phone] [facility] [address] 2019-12-28 2019-12-28 Orders Doctor BERNARDO 1.2.840.114 [id number] 00:00:00 00:00:00 Only Unassigned, [place] 350.1.13.10 [facility] 4.2.7.2.686 [phone] 009 2019-12-12 2019-12-12 Emergency [place], [place] 1.2.370.490 [id number] Univers 21:02:30 23:20:[facility] 350.1.13.10 [place] [phone] [facility] [address] 2019-12-12 2019-12-12 Emergency [place], [place] 1.2.936.209 [id number] 21:02:30 23:20:00 [place]smar [place] 350.1.13.10 4.2.7.2.686 [id number] 014 2017-11-02 2017-11-02 Emergency E [facility] [id number] [address] 08:33:00 08:33:00 [facility] 2017-08-05 2017-08-05 Outpatient [facility] [id number] [place] 00:00:00 00:00:00 Health 2017-07-28 2017-07-28 Outpatient [facility] [id number] [place] 00:00:00 00:00:00 [facility] 2017-06-24 2017-06-24 Outpatient [facility] [id number] [place] 00:00:00 00:00:00 Health 2017-06-22 2017-06-22 Emergency [facility] [id number] [place] 21:37:29 21:37:29 Health 2017-06-22 2017-06-22 Emergency [facility] [id number] [place] 21:06:00 21:06:00 Health 2017-06-22 2017-06-22 Outpatient [facility] [id number] [place] 10:02:31 10:02:31 Health 2017-06-09 2017-06-09 Outpatient [facility] [id number] [place] 00:00:00 00:00:00 Health 2017-06-09 2017-06-09 Outpatient [facility] [id number] [place] 00:00:00 00:00:00 [facility] 2017-05-08 2017-05-08 Emergency [facility] [id number] [place] 01:04:44 01:04:44 Health 2017-05-05 2017-05-05 Emergency E [facility] [id number] [address] 08:11:00 08:11:00 [facility] 2017-04-15 2017-04-15 Emergency E [facility] [id number] [address] 09:53:00 09:53:00 [facility] 2017-04-14 2017-04-14 Outpatient [facility] [id number] [place] 13:31:02 13:31:02 Health Results Test Description Test Time Test Comments Results Result Comments Source Lactic Acid Whole Blood 2023-03-20 20:47:35 Test Item Value Reference Range Interpretation Comme nts LACTIC ACID (test code = 9096271912) 1.00 mmol/L 0.50-2.20 Lab Interpretation (test code = 39976-6) Normal [facility] [place] [facility] Hem[facility] [id number] 04:07:33 Test Item Value Reference Range Interpretation Comments HGB A1C (test code = 5.1 % 4.0-5.7 4548-4) GILBERTO (test code = GILBERTO) Reference RangesNormal: <5.7%Prediabetes: 5.7 - 6.4%Diabetes: > 6.5% Lab Interpretation (test Normal code = 08777-6) [facility] [place] [facility] (NA, K, CL, CO2, GLUCOSE, BUN, CREATININE, CA)2023-01-27 23:24:10 Test Item Value Reference Range Interpretation Comments NA (test code = 135 mmol/L 135-145 9885556925) K (test code = 3.4 mmol/L 3.5-5.0 L 2971923600) CL (test code = 105 mmol/L 98-108 2946700518) CO2 TOTAL (test code = 19 mmol/L 23-31 L 9724177629) AGAP (test code = 11 2-16 0359941563) BUN (test code = 20 mg/dL 7-23 2494634123) GLUCOSE (test code = 84 mg/dL 70-110 0715100537) CREATININE (test code = 1.09 mg/dL 0.60-1.25 0573896810) CALCIUM (test code = 8.5 mg/dL 8.6-10.6 L 9332171459) eGFR (test code = 71.0 mL/min/1.73m2 6060045621) GILBERTO (test code = GILBERTO) Association of [...] tests). Lab Interpretation Abnormal (test code = 53351-5) [facility] [place] [facility] CampusHEPATIC FUNCTION PANEL (05006) (ALB,T.PRO,BILI T,BU/BC,ALT,AST,ALK PHOS)2023-01-27 23:24:10 Test Item Value Reference Range Interpretation Comments TOTAL BILI (test code = 5802710797) 0.7 mg/dL 0.1-1.1 BILI UNCON (test code = 5637451299) 0.5 mg/dL 0.1-1.1 BILI CONJ (test code = 9054149628) 0.0 mg/dL 0.0-0.3 T PROTEIN (test code = 8811893549) 6.0 g/dL 6.3-8.2 L ALBUMIN (test code = 1176666030) 3.5 g/dL 3.5-5.0 ALK PHOS (test code = 3923082835) 64 U/L 34-122 ALTv (test code = 1742-6) 17 U/L 5-50 AST(SGOT) (test code = 8776671248) 37 U/L 13-40 Lab Interpretation (test code = Abnormal 33835-5) [facility] [place] [facility] CampusPhosphorus [id number] 23:24:10 Test Item Value Reference Range Interpretation Comments PHOSPHORUS (test code = 1915998307) 3.4 mg/dL 2.5-5.0 Lab Interpretation (test code = Normal 51210-7) [facility] [place] [facility] WITH [id number] 22:54:46 Test Item Value Reference Range Interpretation Comments WBC (test code = 5.12 See_Comment [Automated 2347-2) message] The sy stem which generated this result transmitted reference range : 4.20 - 10.70 10*3/?L. The reference range was not used to interpret this result as normal/abnormal . RBC (test code = 3.88 See_Comment L [Automated 649-8) message] The sy [...] RDW-SD (test code = 49.4 fL 38.5-51.6 95038-3) RDW-CV (test code = 15.5 % 12.1-15.4 H 788-0) PLT (test code = 226 See_Comment [Automated 377-3) message] The sy stem which generated this result transmitted reference range : 150 - 328 10*3/ ?L. The reference r meredith was not used to interpret this result as normal/abnormal . MPV (test code = 9.8 fL 9.8-13.0 60147-0) NRBC/100 WBC (test 0.0 See_Comment [Automat ed code = 2594469285) message] The system which generated this result transmitted reference range : 0.0 - 10.0 /100 WBCs. The refer ence range was not u sed to interpret th is result as normal/abnormal . NRBC x10^3 (test code See_Comment [Auto mated = 3291684467) message] The s ystem which generated this result transmitted reference range : 10*3/?L. The reference range was not used to interpret this result as normal/abnormal . GRAN MAT (NEUT) % 55.3 % (test code = 770-8) IMM GRAN % (test code 0.60 % = 2030292775) LYMPH % (test code = 31.6 % 736-9) MONO % (test code = 9.8 % 5905-5) EOS % (test code = 2.1 % 713-8) BASO % (test code = 0.6 % 706-2) GRAN MAT x10^3(ANC) 2.83 10*3/uL 1.99-6.95 (test code = 0728183164) IMM GRAN x10^3 (test 0.03 10*3/uL 0.00-0.06 code = 0986968187) LYMPH x10^3 (test code 1.62 10*3/uL 1.09-3.23 = 731-0) MONO x10^3 (test code 0.50 10*3/uL 0.36-1.02 = 742-7) EOS x10^3 (test code = 0.11 10*3/uL 0.06-0.53 711-2) BASO x10^3 (test code 0.03 10*3/uL 0.01-0.09 = 704-7) Lab Interpretation Abnormal (test code = 51905-0) [facility] [place] [facility] ABD PELVIS [id number] 11:13:00 [facility] SHANA LAKEName: HOANG MCNEILL : 1970 Sex: M Name: HOANG MCNEILL FSED : 1970 Age/S: 52 / M [address] [facility] Unit #: [id number] Loc: [place] [address] Phys: Dyana Cameron MD Acct: [id number] Dis Date: Status: REG ER PHONE #: Exam Date: 01/27/2023 1050 FAX #: Reason: LOWER ABD PAIN, OSTOMY REVERSAL 5 MOS AGO EXAMS: CPT CODE: [id number] CT ABD PELVIS W/CONT 90713 B2 TIME OF STUDY: 01/27/2023 9:16 AM REASON FOR EXAM: LOWER ABD PAIN, OSTOMY REVERSAL 5 MOS AGO COMPARISON: February 28, 2013 TECHNIQUE: Helical post contrast enhanced images were obtained through the abdomen and pelvis. Sagittal and coronal reformats were obtained and reviewed. One or more of the following radiation dose reduction techniques was used: automated exposure control, adjustment of mA and/or KV according [...] : 1970 Age/S: 52 / M [address] [facility] Unit #: [id number] Loc: [place]iseo Erazo [address] Phys: Dyana Cameron MD Acct: [id number] Dis Date: Status: REG ER PHONE #: Exam Date: 01/27/2023 1050 FAX #: Reason: LOWER ABD PAIN, OSTOMY REVERSAL 5 MOS AGO EXAMS: CPT CODE: [id number] CT ABD PELVIS W/CONT 77709 (Continued) 3. Circumferential thickening of the bladder. This could be due to partial decompression versus cystitis. Correlate with symptoms and urinalysis. at 1113 Reported and signed by: Tomi Anderson M.D.CC: Dyana Cameron MD Technologist:Renzo Cassidy RT(R)(CT) CTDI: DLP: Trnscb Date/Time: 01/27/2023 (1113) [email or web address] Orig Print D/T: S: 01/27/2023 (1116) PAGE 2 Signed ReportLIVER [id number] 10:31:00 Test Item Value Reference Range Interpretation Comments TOTAL PROTEIN (test code 6.1 GM/DL 5.0-8.0 N Per formed by = PROT) 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 [facility] ed [facility] ALBUMIN (test code = [...] N Testing performed (test code = EDWBC) at:[facility] [address] [place], [place] [address] POC RED BLOOD CELL 3.90 10 6/uL [...] VOLUME (test code = EDMPV) BASIC METABOLIC [id number] 10:10:00 Test Item Value Reference Range Interpretation [...] NA (test code = 137 mmol/L 135-145 3221948529) K (test code = 4.4 mmol/L 3.5-5.0 8799797149) CL (test code = 114 mmol/L 98-108 H 1677712265) CO2 TOTAL (test code = 22 mmol/L 23-31 L 4729440425) AGAP (test code = 1 2-16 L 1610900435) BUN (test code = 12 mg/dL 7-23 1044713745) GLUCOSE (test code = 78 mg/dL 70-110 0220884172) CREATININE (test code = 1.14 mg/dL 0.60-1.25 3485505618) CALCIUM (test code = 7.7 mg/dL 8.6-10.6 L 0250279375) eGFR (test code = 67.5 mL/min/1.73m2 5844489420) GILBERTO (test code = GILBERTO) Association of [...] tests). Lab Interpretation Abnormal (test code = 61830-2) [facility] [place] [facility] CampusMAGNESIUM2023-04-13 11:06:51 Test Item Value Reference Range Interpretation Comments MAGNESIUM (test code = 5009469230) 1.6 mg/dL 1.7-2.4 L Lab Interpretation (test code = Abnormal 29219-7) [facility] [place] [facility] METABOLIC PANEL (NA, K, CL, CO2, GLUCOSE, BUN, CREATININE, CA)2022-12-04 11:06:51 Test Item Value Reference Range Interpretation Comments NA (test code = 137 mmol/L 135-145 7216895477) K (test code = 4.4 mmol/L 3.5-5.0 8665443052) CL (test code = 114 mmol/L 98-108 H 5213960275) CO2 TOTAL (test code = 22 mmol/L 23-31 L 8503367314) AGAP (test code = 1 2-16 L 7231128835) BUN (test code = 12 mg/dL 7-23 5976137882) GLUCOSE (test code = 78 mg/dL 70-110 1393282228) CREATININE (test code = 1.14 mg/dL 0.60-1.25 8789957051) CALCIUM (test code = 7.7 mg/dL 8.6-10.6 L 5689748349) eGFR (test code = 67.5 mL/min/1.73m2 2743667841) GILBERTO (test code = GILBERTO) Association of [...] tests). Lab Interpretation Abnormal (test code = 86924-3) [facility] [place] [facility] CampusMAGNESIUM2023-04-13 11:06:51 Test Item Value Reference Range Interpretation Comments MAGNESIUM (test code = 4451055038) 1.6 mg/dL 1.7-2.4 L Lab Interpretation (test code = Abnormal 28878-0) [facility] [place] [facility] CampusACTIVATED PARTIAL THRMPLAS [id number] 10:41:28 Test Item Value Reference Range Interpretation Comments APTT Patient (test code = 28 See_Comment [ Automated message] 3322-2) The system The [employer] generated this result transmitted ref erence range: 26 - 36 Seconds. The re ference range was not u sed to interpret this result as normal/abnor mal. Lab Interpretation (test Normal code = 07855-7) [facility] [place] [facility]ACTIV[facility] PARTIAL THRMPLAS [id number] 10:41:28 Test Item Value Reference Range Interpretation Comments APTT Patient (test code = 28 See_Comment [ Automated message] 3173-2) The system [employer] generated this result transmitted ref erence range: 26 - 36 Seconds. The re ference range was not u sed to interpret this result as normal/abnor mal. Lab Interpretation (test Normal code = 66844-7) [facility] [place] [facility] CampusProthrombin Time / [id number] 10:41:27 Test Item Value Reference Range Interpretation [...] tions. Lab Interpretation (test Normal code = 66748-5) [facility] [place] [facility] CampusProthrombin Time / [id number] 10:41:27 Test Item Value Reference Range Interpretation Comments PROTIME PATIENT (test 10.6 See_Comment [Auto mated message] code = 5964-2) The system 10-20 [employer] generated this result transmitted ref erence range: 10.1 - 1 2.6 Seconds. The re ference range was not u sed to interpret this result as normal/abnor mal. INR (test code = 6301-6) 1.0 Nor mal INR <1.1; Warfarin Therap eutic range 2.0 to 3. 0 or 2.5 to 3.5, dep ending upon the indica tions. Lab Interpretation (test Normal code = 75923-5) [facility] WITH [id number] 10:35:48 Test Item Value Reference Range Interpretation Comments WBC (test code = 4.40 See_Comment [Automated 7390-2) message] The sy stem [...] RDW-SD (test code = 50.4 fL 38.5-51.6 03830-5) RDW-CV (test code = 15.2 % 12.1-15.4 788-0) PLT (test code = 190 See_Comment [Automated 777-3) message] The sy stem which generated this result transmitted reference range : 150 - 328 10*3/ ?L. The reference r meredith was not used to interpret this result as normal/abnormal . MPV (test code = 9.5 fL 9.8-13.0 L 95060-6) NRBC/100 WBC (test 0.0 See_Comment [Automat ed code = 3444598729) message] The system which generated this result transmitted reference range : 0.0 - 10.0 /100 WBCs. The refer ence range was not u sed to interpret th is result as normal/abnormal . NRBC x10^3 (test code See_Comment [Auto mated = 6856241806) message] The s ystem which generated this result transmitted reference range : 10*3/?L. The reference range was not used to interpret this result as normal/abnormal . GRAN MAT (NEUT) % 52.1 % (test code = 770-8) IMM GRAN % (test code 0.20 % = 8647908153) LYMPH % (test code = 30.0 % 736-9) MONO % (test code = 13.6 % 5905-5) EOS % (test code = 3.4 % 713-8) BASO % (test code = 0.7 % 706-2) GRAN MAT x10^3(ANC) 2.29 10*3/uL 1.99-6.95 (test code = 8173207089) IMM GRAN x10^3 (test 0.00-0.06 code = 9649589607) LYMPH x10^3 (test code 1.32 10*3/uL 1.09-3.23 = 731-0) MONO x10^3 (test code 0.60 10*3/uL 0.36-1.02 = 742-7) EOS x10^3 (test code = 0.15 10*3/uL 0.06-0.53 711-2) BASO x10^3 (test code 0.03 10*3/uL 0.01-0.09 = 704-7) Lab Interpretation Abnormal (test code = 25526-8) [facility] WITH [id number] 10:35:48 Test Item Value Reference Range Interpretation Comments WBC (test code = 4.40 See_Comment [Automated 6690-2) message] The sy stem which generated this result transmitted reference range : 4.20 - 10.70 10*3/?L. The reference range was not used to interpret this result as normal/abnormal . RBC (test code = 2.84 See_Comment L [Automated 759-8) message] The sy [...] RDW-SD (test code = 50.4 fL 38.5-51.6 31793-4) RDW-CV (test code = 15.2 % 12.1-15.4 788-0) PLT (test code = 190 See_Comment [Automated 777-3) message] The sy stem which generated this result transmitted reference range : 150 - 328 10*3/ ?L. The reference r meredith was not used to interpret this result as normal/abnormal . MPV (test code = 9.5 fL 9.8-13.0 L 14526-4) NRBC/100 WBC (test 0.0 See_Comment [Automat ed code = [id number]) message] The system which generated this result transmitted reference range : 0.0 - 10.0 /100 WBCs. The refer ence range was not u sed to interpret th is result as normal/abnormal . NRBC x10^3 (test code See_Comment [Auto mated = 4893066968) message] The s ystem which generated this result transmitted reference range : 10*3/?L. The reference range was not used to interpret this result as normal/abnormal . GRAN MAT (NEUT) % 52.1 % (test code = 770-8) IMM GRAN % (test code 0.20 % = 3741458693) LYMPH % (test code = 30.0 % 736-9) MONO % (test code = 13.6 % 5905-5) EOS % (test code = 3.4 % 713-8) BASO % (test code = 0.7 % 706-2) GRAN MAT x10^3(ANC) 2.29 10*3/uL 1.99-6.95 (test code = 2079249905) IMM GRAN x10^3 (test 0.00-0.06 code = 0923482293) LYMPH x10^3 (test code 1.32 10*3/uL 1.09-3.23 = 731-0) MONO x10^3 (test code 0.60 10*3/uL 0.36-1.02 = 742-7) EOS x10^3 (test code = 0.15 10*3/uL 0.06-0.53 711-2) BASO x10^3 (test code 0.03 10*3/uL 0.01-0.09 = 704-7) Lab Interpretation Abnormal (test code = 84132-5) [facility] 11:40:33 Test Item Value Reference Range Interpretation Comments MAGNESIUM (test code = 7056813879) 1.8 mg/dL 1.7-2.4 Lab Interpretation (test code = Normal 65141-2) [facility] 11:40:33 Test Item Value Reference Range Interpretation Comments MAGNESIUM (test code = 3654114607) 1.8 mg/dL 1.7-2.4 Lab Interpretation (test code = Normal 93003-0) [facility] (NA, K, CL, CO2, GLUCOSE, BUN, CREATININE, CA)2022-12-03 11:40:32 Test Item Value Reference Range Interpretation Comments NA (test code = 134 mmol/L 135-145 L 8786839733) K (test code = 4.1 mmol/L 3.5-5.0 1155898335) CL (test code = 111 mmol/L 98-108 H 2712355609) CO2 TOTAL (test code = 21 mmol/L 23-31 L 2578715459) AGAP (test code = 2 2-16 3697820094) BUN (test code = 13 mg/dL 7-23 1905965415) GLUCOSE (test code = 88 mg/dL 70-110 5166051061) CREATININE (test code = 1.24 mg/dL 0.60-1.25 7381668487) CALCIUM (test code = 7.4 mg/dL 8.6-10.6 L 7312011038) eGFR (test code = 61.2 mL/min/1.73m2 5661776637) GILBERTO (test code = GILBERTO) Association of [...] tests). Lab Interpretation Abnormal (test code = 75021-7) [facility] METABOLIC PANEL (NA, K, CL, CO2, GLUCOSE, BUN, CREATININE, CA)2022-12-03 11:40:32 Test Item Value Reference Range Interpretation Comments NA (test code = 134 mmol/L 135-145 L 5015193422) K (test code = 4.1 mmol/L 3.5-5.0 0778106162) CL (test code = 111 mmol/L 98-108 H 6161285491) CO2 TOTAL (test code = 21 mmol/L 23-31 L 4663069614) AGAP (test code = 2 2-16 0623488948) BUN (test code = 13 mg/dL 7-23 9873215869) GLUCOSE (test code = 88 mg/dL 70-110 1036538775) CREATININE (test code = 1.24 mg/dL 0.60-1.25 6535111512) CALCIUM (test code = 7.4 mg/dL 8.6-10.6 L 5276385210) eGFR (test code = 61.2 mL/min/1.73m2 3979471127) GILBERTO (test code = GILBERTO) Association of [...] tests). Lab Interpretation Abnormal (test code = 10297-2) [facility] WITH [id number] 11:16:11 Test Item Value Reference Range Interpretation Comments WBC (test code = 4.57 See_Comment [Automated 7190-2) message] The sy stem which generated this result transmitted reference range : 4.20 - 10.70 10*3/?L. The reference range was not used to interpret this result as normal/abnormal . RBC (test code = 2.73 See_Comment L [Automated 989-8) message] The sy stem which generated this [...] RDW-SD (test code = 49.3 fL 38.5-51.6 94129-5) RDW-CV (test code = 14.9 % 12.1-15.4 788-0) PLT (test code = 214 See_Comment [Automated 777-3) message] The sy stem which generated this result transmitted reference range : 150 - 328 10*3/ ?L. The reference r meredith was not used to interpret this result as normal/abnormal . MPV (test code = 9.4 fL 9.8-13.0 L 37960-2) NRBC/100 WBC (test 0.0 See_Comment [Automat ed code = 0323834530) message] The system which generated this result transmitted reference range : 0.0 - 10.0 /100 WBCs. The refer ence range was not u sed to interpret th is result as normal/abnormal . NRBC x10^3 (test code See_Comment [Auto mated = 7241605169) message] The s ystem which generated this result transmitted reference range : 10*3/?L. The reference range was not used to interpret this result as normal/abnormal . GRAN MAT (NEUT) % 59.7 % (test code = 770-8) IMM GRAN % (test code 0.20 % = 8221865657) LYMPH % (test code = 25.8 % 736-9) MONO % (test code = 11.2 % 5905-5) EOS % (test code = 2.4 % 713-8) BASO % (test code = 0.7 % 706-2) GRAN MAT x10^3(ANC) 2.73 10*3/uL 1.99-6.95 (test code = 1256329373) IMM GRAN x10^3 (test 0.00-0.06 code = 9265458358) LYMPH x10^3 (test code 1.18 10*3/uL 1.09-3.23 = 731-0) MONO x10^3 (test code 0.51 10*3/uL 0.36-1.02 = 742-7) EOS x10^3 (test code = 0.11 10*3/uL 0.06-0.53 711-2) BASO x10^3 (test code 0.03 10*3/uL 0.01-0.09 = 704-7) Lab Interpretation Abnormal (test code = 26440-8) [facility] WITH [id number] 11:16:11 Test Item Value Reference Range Interpretation [...] RDW-SD (test code = 49.3 fL 38.5-51.6 69150-3) RDW-CV (test code = 14.9 % 12.1-15.4 788-0) PLT (test code = 214 See_Comment [Automated 777-3) message] The sy stem which generated this result transmitted reference range : 150 - 328 10*3/ ?L. The reference r meredtih was not used to interpret this result as normal/abnormal . MPV (test code = 9.4 fL 9.8-13.0 L 76702-0) NRBC/100 WBC (test 0.0 See_Comment [Automat ed code = 7900240468) message] The system which generated this result transmitted reference range : 0.0 - 10.0 /100 WBCs. The refer ence range was not u sed to interpret th is result as normal/abnormal . NRBC x10^3 (test code See_Comment [Auto mated = 0594362753) message] The s ystem which generated this result transmitted reference range : 10*3/?L. The reference range was not used to interpret this result as normal/abnormal . GRAN MAT (NEUT) % 59.7 % (test code = 770-8) IMM GRAN % (test code 0.20 % = 6482705877) LYMPH % (test code = 25.8 % 736-9) MONO % (test code = 11.2 % 5905-5) EOS % (test code = 2.4 % 713-8) BASO % (test code = 0.7 % 706-2) GRAN MAT x10^3(ANC) 2.73 10*3/uL 1.99-6.95 (test code = 4724412562) IMM GRAN x10^3 (test 0.00-0.06 code = 2989571873) LYMPH x10^3 (test code 1.18 10*3/uL 1.09-3.23 = 731-0) MONO x10^3 (test code 0.51 10*3/uL 0.36-1.02 = 742-7) EOS x10^3 (test code = 0.11 10*3/uL 0.06-0.53 711-2) BASO x10^3 (test code 0.03 10*3/uL 0.01-0.09 = 704-7) Lab Interpretation Abnormal (test code = 39653-6) [facility] [id number] 15:01:14 Test Item Value Reference Range Interpretation Comments Blood Culture-Aerobic No organisms No growth Previo us (test code = 69026-7) isolated prelim inary verified result was Culture [...] Culture-Anaerobic isolated preliminar y (test code = 88492-3) verifi ed result was Culture In Progress [...] CDT Lab Interpretation Normal (test code = 75723-2) [facility] CULTURE [id number] 15:01:14 Test Item Value Reference Range Interpretation Comments Blood Culture-Aerobic No organisms No growth Previo us (test code = 15821-4) isolated prelim inary verified result was Culture [...] Culture-Anaerobic isolated preliminar y (test code = 52480-5) verifi ed result was Culture In Progress [...] CDT Lab Interpretation Normal (test code = 49681-8) [facility] CULTURE [id number] 15:01:14 Test Item Value Reference Range Interpretation Comments Blood Culture-Aerobic No organisms No growth Previo us (test code = 24417-3) isolated prelim inary verified result was Culture [...] Culture-Anaerobic isolated preliminar y (test code = 15497-2) verifi ed result was Culture In Progress [...] CDT Lab Interpretation Normal (test code = 60064-7) [facility] [id number] 15:01:14 Test Item Value Reference Range Interpretation Comments Blood Culture-Aerobic No organisms No growth Previo us (test code = 41675-7) isolated prelim inary verified result was Culture [...] Culture-Anaerobic isolated preliminar y (test code = 37253-4) verifi ed result was Culture In Progress [...] CDT Lab Interpretation Normal (test code = 86190-6) [facility]2023-04-11 14:32:40 Test Item Value Reference Range Interpretation Comments PHOSPHORUS (test code = 5338240753) 3.1 mg/dL 2.5-5.0 Lab Interpretation (test code = Normal 37394-5) [facility]2023-04-11 14:32:40 Test Item Value Reference Range Interpretation Comments PHOSPHORUS (test code = 1096512646) 3.1 mg/dL 2.5-5.0 Lab Interpretation (test code = Normal 23311-3) [facility]OL[facility] (NA, K, CL, CO2, GLUCOSE, BUN, CREATININE, CA)2022-12-02 10:14:23 Test Item Value Reference Range Interpretation Comments NA (test code = 133 mmol/L 135-145 L 3676034017) K (test code = 4.2 mmol/L 3.5-5.0 7005050051) CL (test code = 110 mmol/L 98-108 H 3619770461) CO2 TOTAL (test code = 20 mmol/L 23-31 L 6576504795) AGAP (test code = 3 2-16 7416059501) BUN (test code = 11 mg/dL 7-23 6739410914) GLUCOSE (test code = 97 mg/dL 70-110 5203478362) CREATININE (test code = 1.13 mg/dL 0.60-1.25 6129599940) CALCIUM (test code = 7.6 mg/dL 8.6-10.6 L 0076760765) eGFR (test code = 68.1 mL/min/1.73m2 5518633140) GILBERTO (test code = GILBERTO) Association of [...] tests). Lab Interpretation Abnormal (test code = 36917-9) [facility]2023-[facility]-11 10:14:23 Test Item Value Reference Range Interpretation Comments MAGNESIUM (test code = 8756256900) 1.5 mg/dL 1.7-2.4 L Lab Interpretation (test code = Abnormal 17373-4) [facility] (NA, K, CL, CO2, GLUCOSE, BUN, CREATININE, CA)2022-12-02 10:14:23 Test Item Value Reference Range Interpretation Comments NA (test code = 133 mmol/L 135-145 L 3472304076) K (test code = 4.2 mmol/L 3.5-5.0 6673618187) CL (test code = 110 mmol/L 98-108 H 2484972857) CO2 TOTAL (test code = 20 mmol/L 23-31 L 9712237936) AGAP (test code = 3 2-16 6004947631) BUN (test code = 11 mg/dL 7-23 8643841376) GLUCOSE (test code = 97 mg/dL 70-110 2852094660) CREATININE (test code = 1.13 mg/dL 0.60-1.25 2041813794) CALCIUM (test code = 7.6 mg/dL 8.6-10.6 L 1011138231) eGFR (test code = 68.1 mL/min/1.73m2 4015554700) GILBERTO (test code = GILBERTO) Association of [...] tests). Lab Interpretation Abnormal (test code = 60488-6) [facility]2023-[facility]-11 10:14:23 Test Item Value Reference Range Interpretation Comments MAGNESIUM (test code = 7628186731) 1.5 mg/dL 1.7-2.4 L Lab Interpretation (test code = Abnormal 02867-1) [facility] (NA, K, CL, CO2, GLUCOSE, BUN, CREATININE, CA)2022-12-01 10:30:03 Test Item Value Reference Range Interpretation Comments NA (test code = 135 mmol/L 135-145 4789704852) K (test code = 4.3 mmol/L 3.5-5.0 4088635649) CL (test code = 111 mmol/L 98-108 H 2057642927) CO2 TOTAL (test code = 20 mmol/L 23-31 L 7651323789) AGAP (test code = 4 2-16 7467916856) BUN (test code = 13 mg/dL 7-23 9169643847) GLUCOSE (test code = 81 mg/dL 70-110 3757898067) CREATININE (test code = 0.97 mg/dL 0.60-1.25 6391380657) CALCIUM (test code = 7.5 mg/dL 8.6-10.6 L 7274918282) eGFR (test code = 81.3 mL/min/1.73m2 4998874741) GILBERTO (test code = GILBERTO) Association of [...] tests). Lab Interpretation Abnormal (test code = 56784-6) [facility]2023-[facility]-10 10:30:03 Test Item Value Reference Range Interpretation Comments MAGNESIUM (test code = 2727465238) 1.9 mg/dL 1.7-2.4 Lab Interpretation (test code = Normal 11406-0) [facility] (NA, K, CL, CO2, GLUCOSE, BUN, CREATININE, CA)2022-12-01 10:30:03 Test Item Value Reference Range Interpretation Comments NA (test code = 135 mmol/L 135-145 9027878558) K (test code = 4.3 mmol/L 3.5-5.0 2661358148) CL (test code = 111 mmol/L 98-108 H 4420616907) CO2 TOTAL (test code = 20 mmol/L 23-31 L 7752957334) AGAP (test code = 4 2-16 8922324890) BUN (test code = 13 mg/dL 7-23 7804249557) GLUCOSE (test code = 81 mg/dL 70-110 7911425379) CREATININE (test code = 0.97 mg/dL 0.60-1.25 2251041479) CALCIUM (test code = 7.5 mg/dL 8.6-10.6 L 4999514299) eGFR (test code = 81.3 mL/min/1.73m2 5908283607) GILBERTO (test code = GILBERTO) Association of [...] tests). Lab Interpretation Abnormal (test code = 59302-3) [facility]20[facility] 10:30:03 Test Item Value Reference Range Interpretation Comments MAGNESIUM (test code = 4468226853) 1.9 mg/dL 1.7-2.4 Lab Interpretation (test code = Normal 44167-3) [facility] WITH [id number] 10:27:26 Test Item Value Reference Range Interpretation [...] RDW-SD (test code = 47.7 fL 38.5-51.6 14185-2) RDW-CV (test code = 14.5 % 12.1-15.4 788-0) PLT (test code = 274 See_Comment [Automated 777-3) message] The sy stem which generated this result transmitted reference range : 150 - 328 10*3/ ?L. The reference r meredith was not used to interpret this result as normal/abnormal . MPV (test code = 9.0 fL 9.8-13.0 L 42548-6) NRBC/100 WBC (test 0.0 See_Comment [Automat ed code = 8796478544) message] The system which generated this result transmitted reference range : 0.0 - 10.0 /100 WBCs. The refer ence range was not u sed to interpret th is result as normal/abnormal . NRBC x10^3 (test code See_Comment [Auto mated = 7285862626) message] The s ystem which generated this result transmitted reference range : 10*3/?L. The reference range was not used to interpret this result as normal/abnormal . GRAN MAT (NEUT) % 53.2 % (test code = 770-8) IMM GRAN % (test code 0.00 % = 8075542927) LYMPH % (test code = 34.7 % 736-9) MONO % (test code = 9.3 % 5905-5) EOS % (test code = 2.4 % 713-8) BASO % (test code = 0.4 % 706-2) GRAN MAT x10^3(ANC) 2.45 10*3/uL 1.99-6.95 (test code = 1145190511) IMM GRAN x10^3 (test 0.00-0.06 code = 7065849384) LYMPH x10^3 (test code 1.60 10*3/uL 1.09-3.23 = 731-0) MONO x10^3 (test code 0.43 10*3/uL 0.36-1.02 = 742-7) EOS x10^3 (test code = 0.11 10*3/uL 0.06-0.53 711-2) BASO x10^3 (test code 0.01-0.09 = 704-7) Lab Interpretation Abnormal (test code = 77240-8) [facility] WITH [id number] 10:27:26 Test Item Value Reference Range Interpretation Comments WBC (test code = 4.61 See_Comment [Automated 5790-2) message] The sy stem which generated this result transmitted reference range : 4.20 - 10.70 10*3/?L. The reference range was not used to interpret this result as normal/abnormal . RBC (test code = 3.05 See_Comment L [Automated 714-8) message] The sy stem which generated this [...] RDW-SD (test code = 47.7 fL 38.5-51.6 93023-9) RDW-CV (test code = 14.5 % 12.1-15.4 788-0) PLT (test code = 274 See_Comment [Automated 777-3) message] The sy stem which generated this result transmitted reference range : 150 - 328 10*3/ ?L. The reference r meredith was not used to interpret this result as normal/abnormal . MPV (test code = 9.0 fL 9.8-13.0 L 06917-5) NRBC/100 WBC (test 0.0 See_Comment [Automat ed code = 8201754112) message] The system which generated this result transmitted reference range : 0.0 - 10.0 /100 WBCs. The refer ence range was not u sed to interpret th is result as normal/abnormal . NRBC x10^3 (test code See_Comment [Auto mated = 8910951839) message] The s ystem which generated this result transmitted reference range : 10*3/?L. The reference range was not used to interpret this result as normal/abnormal . GRAN MAT (NEUT) % 53.2 % (test code = 770-8) IMM GRAN % (test code 0.00 % = 5415423541) LYMPH % (test code = 34.7 % 736-9) MONO % (test code = 9.3 % 5905-5) EOS % (test code = 2.4 % 713-8) BASO % (test code = 0.4 % 706-2) GRAN MAT x10^3(ANC) 2.45 10*3/uL 1.99-6.95 (test code = 1096571488) IMM GRAN x10^3 (test 0.00-0.06 code = 1377113704) LYMPH x10^3 (test code 1.60 10*3/uL 1.09-3.23 = 731-0) MONO x10^3 (test code 0.43 10*3/uL 0.36-1.02 = 742-7) EOS x10^3 (test code = 0.11 10*3/uL 0.06-0.53 711-2) BASO x10^3 (test code 0.01-0.09 = 704-7) Lab Interpretation Abnormal (test code = 67920-2) [facility] METABOLIC PANEL (NA, K, CL, CO2, GLUCOSE, BUN, CREATININE, CA)2022-11-30 11:04:34 Test Item Value Reference Range Interpretation Comments NA (test code = 132 mmol/L 135-145 L 3296978453) K (test code = 4.7 mmol/L 3.5-5.0 4145956467) CL (test code = 108 mmol/L 98-108 1325343135) CO2 TOTAL (test code = 18 mmol/L 23-31 L 2827098757) AGAP (test code = 6 2-16 6568349469) BUN (test code = 15 mg/dL 7-23 5586318036) GLUCOSE (test code = 75 mg/dL 70-110 5956980972) CREATININE (test code = 1.03 mg/dL 0.60-1.25 1213510727) CALCIUM (test code = 8.2 mg/dL 8.6-10.6 L 3624847405) eGFR (test code = 75.8 mL/min/1.73m2 4961178159) GILBERTO (test code = GILBERTO) Association of [...] tests). Lab Interpretation Abnormal (test code = 73834-6) [facility] 11:04:34 Test Item Value Reference Range Interpretation Comments MAGNESIUM (test code = 7403258380) 1.6 mg/dL 1.7-2.4 L Lab Interpretation (test code = Abnormal 95870-1) [facility] (NA, K, CL, CO2, GLUCOSE, BUN, CREATININE, CA)2022-11-30 11:04:34 Test Item Value Reference Range Interpretation Comments NA (test code = 132 mmol/L 135-145 L 1536618227) K (test code = 4.7 mmol/L 3.5-5.0 6023583848) CL (test code = 108 mmol/L 98-108 5763299031) CO2 TOTAL (test code = 18 mmol/L 23-31 L 9227414298) AGAP (test code = 6 2-16 9634775464) BUN (test code = 15 mg/dL 7-23 9583968601) GLUCOSE (test code = 75 mg/dL 70-110 1789349828) CREATININE (test code = 1.03 mg/dL 0.60-1.25 6444613669) CALCIUM (test code = 8.2 mg/dL 8.6-10.6 L 1440560894) eGFR (test code = 75.8 mL/min/1.73m2 7886984193) GILBERTO (test code = GILBERTO) Association of [...] tests). Lab Interpretation Abnormal (test code = 90187-4) [facility] 11:04:34 Test Item Value Reference Range Interpretation Comments MAGNESIUM (test code = 4305617347) 1.6 mg/dL 1.7-2.4 L Lab Interpretation (test code = Abnormal 21550-2) [facility] WITH [id number] 10:09:29 Test Item Value Reference Range Interpretation Comments WBC (test code = 4.46 See_Comment [Automated 7729-2) message] The sy stem which generated this result transmitted reference range : 4.20 - 10.70 10*3/?L. The reference range was not used to interpret this result as normal/abnormal . RBC (test code = 3.22 See_Comment L [Automated 164-8) message] The sy stem which generated this [...] RDW-SD (test code = 45.1 fL 38.5-51.6 72058-8) RDW-CV (test code = 14.1 % 12.1-15.4 788-0) PLT (test code = 282 See_Comment [Automated 777-3) message] The sy stem which generated this result transmitted reference range : 150 - 328 10*3/ ?L. The reference r meredith was not used to interpret this result as normal/abnormal . MPV (test code = 9.0 fL 9.8-13.0 L 58732-6) NRBC/100 WBC (test 0.0 See_Comment [Automat ed code = 7267173072) message] The system which generated this result transmitted reference range : 0.0 - 10.0 /100 WBCs. The refer ence range was not u sed to interpret th is result as normal/abnormal . NRBC x10^3 (test code See_Comment [Auto mated = 9379834338) message] The s ystem which generated this result transmitted reference range : 10*3/?L. The reference range was not used to interpret this result as normal/abnormal . GRAN MAT (NEUT) % 51.6 % (test code = 770-8) IMM GRAN % (test code 0.20 % = 9526312812) LYMPH % (test code = 34.8 % 736-9) MONO % (test code = 10.8 % 5905-5) EOS % (test code = 2.2 % 713-8) BASO % (test code = 0.4 % 706-2) GRAN MAT x10^3(ANC) 2.30 10*3/uL 1.99-6.95 (test code = 0081930291) IMM GRAN x10^3 (test 0.00-0.06 code = 1121710972) LYMPH x10^3 (test code 1.55 10*3/uL 1.09-3.23 = 731-0) MONO x10^3 (test code 0.48 10*3/uL 0.36-1.02 = 742-7) EOS x10^3 (test code = 0.10 10*3/uL 0.06-0.53 711-2) BASO x10^3 (test code 0.01-0.09 = 704-7) Lab Interpretation Abnormal (test code = 41011-0) [facility] WITH [id number] 10:09:29 Test Item Value Reference Range Interpretation [...] RDW-SD (test code = 45.1 fL 38.5-51.6 88712-9) RDW-CV (test code = 14.1 % 12.1-15.4 788-0) PLT (test code = 282 See_Comment [Automated 777-3) message] The sy stem which generated this result transmitted reference range : 150 - 328 10*3/ ?L. The reference r meredith was not used to interpret this result as normal/abnormal . MPV (test code = 9.0 fL 9.8-13.0 L 91969-2) NRBC/100 WBC (test 0.0 See_Comment [Automat ed code = 3870014803) message] The system which generated this result transmitted reference range : 0.0 - 10.0 /100 WBCs. The refer ence range was not u sed to interpret th is result as normal/abnormal . NRBC x10^3 (test code See_Comment [Auto mated = 2252610659) message] The s ystem which generated this result transmitted reference range : 10*3/?L. The reference range was not used to interpret this result as normal/abnormal . GRAN MAT (NEUT) % 51.6 % (test code = 770-8) IMM GRAN % (test code 0.20 % = 7170515036) LYMPH % (test code = 34.8 % 736-9) MONO % (test code = 10.8 % 5905-5) EOS % (test code = 2.2 % 713-8) BASO % (test code = 0.4 % 706-2) GRAN MAT x10^3(ANC) 2.30 10*3/uL 1.99-6.95 (test code = 7273408494) IMM GRAN x10^3 (test 0.00-0.06 code = 7653436102) LYMPH x10^3 (test code 1.55 10*3/uL 1.09-3.23 = 731-0) MONO x10^3 (test code 0.48 10*3/uL 0.36-1.02 = 742-7) EOS x10^3 (test code = 0.10 10*3/uL 0.06-0.53 711-2) BASO x10^3 (test code 0.01-0.09 = 704-7) Lab Interpretation Abnormal (test code = 60243-5) [facility] Whole [id number] 13:52:51 Test Item Value Reference Range Interpretation Comments LACTIC ACID (test code = 1.53 mmol/L 0.50-2.20 1389520176) Lab Interpretation (test code = Normal 38795-6) [facility] [id number] 13:52:51 Test Item Value Reference Range Interpretation Comments LACTIC ACID (test code = 1.53 mmol/L 0.50-2.20 2989823278) Lab Interpretation (test code = Normal 08451-3) [facility] (NA, K, CL, CO2, GLUCOSE, BUN, CREATININE, CA)2022-11-29 09:16:40 Test Item Value Reference Range Interpretation Comments NA (test code = 130 mmol/L 135-145 L 5418921088) K (test code = 4.6 mmol/L 3.5-5.0 3276955986) CL (test code = 106 mmol/L 98-108 2878316656) CO2 TOTAL (test code = 20 mmol/L 23-31 L 7807288858) AGAP (test code = 4 2-16 4176596479) BUN (test code = 22 mg/dL 7-23 1433169366) GLUCOSE (test code = 79 mg/dL 70-110 6525965357) CREATININE (test code = 1.24 mg/dL 0.60-1.25 7555044125) CALCIUM (test code = 8.1 mg/dL 8.6-10.6 L 5320815838) eGFR (test code = 61.2 mL/min/1.73m2 1502566529) GILBERTO (test code = GILBERTO) Association of [...] tests). Lab Interpretation Abnormal (test code = 68298-8) [facility]:16:40 Test Item Value Reference Range Interpretation Comments MAGNESIUM (test code = 8070043833) 2.0 mg/dL 1.7-2.4 Lab Interpretation (test code = Normal 64282-4) [facility] (NA, K, CL, CO2, GLUCOSE, BUN, CREATININE, CA)2022-11-29 09:16:40 Test Item Value Reference Range Interpretation Comments NA (test code = 130 mmol/L 135-145 L [id number]) K (test code = 4.6 mmol/L 3.5-5.0 3812275235) CL (test code = 106 mmol/L 98-108 4610838915) CO2 TOTAL (test code = 20 mmol/L 23-31 L 9907729804) AGAP (test code = 4 2-16 8550678859) BUN (test code = 22 mg/dL 7-23 7353452916) GLUCOSE (test code = 79 mg/dL 70-110 4977860073) CREATININE (test code = 1.24 mg/dL 0.60-1.25 1457471416) CALCIUM (test code = 8.1 mg/dL 8.6-10.6 L 5180299978) eGFR (test code = 61.2 mL/min/1.73m2 6861482266) GILBERTO (test code = GILBERTO) Association of [...] tests). Lab Interpretation Abnormal (test code = 48419-1) [facility] [place] [facility] 09:16:40 Test Item Value Reference Range Interpretation Comments MAGNESIUM (test code = 7819588195) 2.0 mg/dL 1.7-2.4 Lab Interpretation (test code = Normal 15580-0) [facility] WITH [id number] 08:51:40 Test Item Value Reference Range Interpretation Comments WBC (test code = 4.77 See_Comment [Automated 8286-2) message] The sy stem which generated this result transmitted reference range : 4.20 - 10.70 10*3/?L. The reference range was not used to interpret this result as normal/abnormal . RBC (test code = 3.33 See_Comment L [Automated 874-8) message] The sy stem which generated this [...] RDW-SD (test code = 44.9 fL 38.5-51.6 79459-1) RDW-CV (test code = 14.3 % 12.1-15.4 788-0) PLT (test code = 287 See_Comment [Automated 777-3) message] The sy stem which generated this result transmitted reference range : 150 - 328 10*3/ ?L. The reference r meredith was not used to interpret this result as normal/abnormal . MPV (test code = 8.9 fL 9.8-13.0 L 94807-1) NRBC/100 WBC (test 0.0 See_Comment [Automat ed code = 6442764547) message] The system which generated this result transmitted reference range : 0.0 - 10.0 /100 WBCs. The refer ence range was not u sed to interpret th is result as normal/abnormal . NRBC x10^3 (test code See_Comment [Auto mated = 1686918563) message] The s ystem which generated this result transmitted reference range : 10*3/?L. The reference range was not used to interpret this result as normal/abnormal . GRAN MAT (NEUT) % 52.5 % (test code = 770-8) IMM GRAN % (test code 0.20 % = 4590637869) LYMPH % (test code = 35.2 % 736-9) MONO % (test code = 9.4 % 5905-5) EOS % (test code = 2.3 % 713-8) BASO % (test code = 0.4 % 706-2) GRAN MAT x10^3(ANC) 2.50 10*3/uL 1.99-6.95 (test code = 9988520891) IMM GRAN x10^3 (test 0.00-0.06 code = 1238189765) LYMPH x10^3 (test code 1.68 10*3/uL 1.09-3.23 = 731-0) MONO x10^3 (test code 0.45 10*3/uL 0.36-1.02 = 742-7) EOS x10^3 (test code = 0.11 10*3/uL 0.06-0.53 711-2) BASO x10^3 (test code 0.01-0.09 = 704-7) Lab Interpretation Abnormal (test code = 82465-4) [facility] WITH [id number] 08:51:40 Test Item Value Reference Range Interpretation [...] RDW-SD (test code = 44.9 fL 38.5-51.6 15764-0) RDW-CV (test code = 14.3 % 12.1-15.4 788-0) PLT (test code = 287 See_Comment [Automated 777-3) message] The sy stem which generated this result transmitted reference range : 150 - 328 10*3/ ?L. The reference r meredith was not used to interpret this result as normal/abnormal . MPV (test code = 8.9 fL 9.8-13.0 L 90801-7) NRBC/100 WBC (test 0.0 See_Comment [Automat ed code = 6536252164) message] The system which generated this result transmitted reference range : 0.0 - 10.0 /100 WBCs. The refer ence range was not u sed to interpret th is result as normal/abnormal . NRBC x10^3 (test code See_Comment [Auto mated = 4048607204) message] The s ystem which generated this result transmitted reference range : 10*3/?L. The reference range was not used to interpret this result as normal/abnormal . GRAN MAT (NEUT) % 52.5 % (test code = 770-8) IMM GRAN % (test code 0.20 % = 8621896064) LYMPH % (test code = 35.2 % 736-9) MONO % (test code = 9.4 % 5905-5) EOS % (test code = 2.3 % 713-8) BASO % (test code = 0.4 % 706-2) GRAN MAT x10^3(ANC) 2.50 10*3/uL 1.99-6.95 (test code = 6986293628) IMM GRAN x10^3 (test 0.00-0.06 code = 5252674618) LYMPH x10^3 (test code 1.68 10*3/uL 1.09-3.23 = 731-0) MONO x10^3 (test code 0.45 10*3/uL 0.36-1.02 = 742-7) EOS x10^3 (test code = 0.11 10*3/uL 0.06-0.53 711-2) BASO x10^3 (test code 0.01-0.09 = 704-7) Lab Interpretation Abnormal (test code = 87056-0) [facility]IN20[facility]-07 18:32:29 Test Item Value Reference Range Interpretation Comments PALB (test code = 16602-4) 28.4 mg/dL 18.0-45.0 Lab Interpretation (test code = Normal 38596-8) [facility]2023-04-07 18:32:29 Test Item Value Reference Range Interpretation Comments PALB (test code = 28006-9) 28.4 mg/dL 18.0-45.0 Lab Interpretation (test code = Normal 39907-7) [facility]AL[facility]IN2023-[facility]-07 18:22:51 Test Item Value Reference Range Interpretation Comments ALBUMIN (test code = 1405526071) 3.7 g/dL 3.5-5.0 Lab Interpretation (test code = Normal 69026-3) [facility]2023-[facility]-07 18:22:51 Test Item Value Reference Range Interpretation Comments ALBUMIN (test code = 0778293035) 3.7 g/dL 3.5-5.0 Lab Interpretation (test code = Normal 79848-4) [facility]MAG[facility]UM2023-04-07 08:07:43 Test Item Value Reference Range Interpretation Comments MAGNESIUM (test code = 5797370620) 1.6 mg/dL 1.7-2.4 L Lab Interpretation (test code = Abnormal 08682-8) [facility] METABOLIC PANEL (NA, K, CL, CO2, GLUCOSE, BUN, CREATININE, CA)2022-11-28 08:07:43 Test Item Value Reference Range Interpretation Comments NA (test code = 129 mmol/L 135-145 L 6780342570) K (test code = 4.8 mmol/L 3.5-5.0 1341583182) CL (test code = 101 mmol/L 98-108 5763836126) CO2 TOTAL (test code = 20 mmol/L 23-31 L 3557004843) AGAP (test code = 8 2-16 2975108334) BUN (test code = 37 mg/dL 7-23 H 0243933867) GLUCOSE (test code = 92 mg/dL 70-110 3913837376) CREATININE (test code = 2.09 mg/dL 0.60-1.25 H 9962922647) CALCIUM (test code = 8.3 mg/dL 8.6-10.6 L 8313998502) eGFR (test code = 33.5 mL/min/1.73m2 3574649523) GILBERTO (test code = GILBERTO) Association of [...] Lab Interpretation Abnormal (test code = 54047-4) [facility]MAG[facility]UM2023-[facility]-07 08:07:43 Test Item Value Reference Range Interpretation Comments MAGNESIUM (test code = 3856052173) 1.6 mg/dL 1.7-2.4 L Lab Interpretation (test code = Abnormal 34756-4) [facility] (NA, K, CL, CO2, GLUCOSE, BUN, CREATININE, CA)2022-11-28 08:07:43 Test Item Value Reference Range Interpretation Comments NA (test code = 129 mmol/L 135-145 L 6504089086) K (test code = 4.8 mmol/L 3.5-5.0 8781798479) CL (test code = 101 mmol/L 98-108 6161860149) CO2 TOTAL (test code = 20 mmol/L 23-31 L 5876990547) AGAP (test code = 8 2-16 8446388188) BUN (test code = 37 mg/dL 7-23 H 6962123817) GLUCOSE (test code = 92 mg/dL 70-110 7518857273) CREATININE (test code = 2.09 mg/dL 0.60-1.25 H 1042125218) CALCIUM (test code = 8.3 mg/dL 8.6-10.6 L 3601501779) eGFR (test code = 33.5 mL/min/1.73m2 3241618040) GILBERTO (test code = GILBERTO) Association of [...] tests). Lab Interpretation Abnormal (test code = 20961-1) [facility] CampusL[facility] Acid Whole [id number] 21:10:50 Test Item Value Reference Range Interpretation Comments LACTIC ACID (test code = 1.18 mmol/L 0.50-2.20 7579137114) Lab Interpretation (test code = Normal 55831-7) [facility] CampusL[facility] Acid Whole [id number] 21:10:50 Test Item Value Reference Range Interpretation Comments LACTIC ACID (test code = 1.18 mmol/L 0.50-2.20 8012337527) Lab Interpretation (test code = Normal 38008-1) [facility] (NA, K, CL, CO2, GLUCOSE, BUN, CREATININE, CA)2022-11-27 19:07:08 Test Item Value Reference Range Interpretation Comments NA (test code = 131 mmol/L 135-145 L 9614460497) K (test code = 4.5 mmol/L 3.5-5.0 5105256730) CL (test code = 103 mmol/L 98-108 9907618245) CO2 TOTAL (test code = 18 mmol/L 23-31 L 7952575821) AGAP (test code = 10 2-16 7624871944) BUN (test code = 42 mg/dL 7-23 H 3864875755) GLUCOSE (test code = 120 mg/dL 70-110 H 9367583283) CREATININE (test code = 3.28 mg/dL 0.60-1.25 H 8205225373) CALCIUM (test code = 9.1 mg/dL 8.6-10.6 1753020139) eGFR (test code = 19.9 mL/min/1.73m2 2152811966) GILBERTO (test code = GILBERTO) Association of [...] tests). Lab Interpretation Abnormal (test code = 68002-8) [facility] METABOLIC PANEL (NA, K, CL, CO2, GLUCOSE, BUN, CREATININE, CA)2022-11-27 19:07:08 Test Item Value Reference Range Interpretation Comments NA (test code = 131 mmol/L 135-145 L 4101415712) K (test code = 4.5 mmol/L 3.5-5.0 5311683363) CL (test code = 103 mmol/L 98-108 4610190842) CO2 TOTAL (test code = 18 mmol/L 23-31 L 1274866663) AGAP (test code = 10 2-16 4530119503) BUN (test code = 42 mg/dL 7-23 H 1643079841) GLUCOSE (test code = 120 mg/dL 70-110 H 3745513164) CREATININE (test code = 3.28 mg/dL 0.60-1.25 H 3235551816) CALCIUM (test code = 9.1 mg/dL 8.6-10.6 3439336884) eGFR (test code = 19.9 mL/min/1.73m2 2157156582) GILBERTO (test code = GILBERTO) Association of [...] tests). Lab Interpretation Abnormal (test code = 79139-4) [facility]. METABOLIC PANEL ([id number])2022-11-27 14:49:21 Test Item Value Reference Range Interpretation Comments NA (test code = 131 mmol/L 135-145 L 7459930078) K (test code = 6.2 mmol/L 3.5-5.0 HH 1334684995) CL (test code = 95 mmol/L 98-108 L 9904208065) CO2 TOTAL (test code = 19 mmol/L 23-31 L 6862499908) AGAP (test code = 17 2-16 H 0195627399) BUN (test code = 43 mg/dL 7-23 H 8837386759) GLUCOSE (test code = 74 mg/dL 70-110 2093783104) CREATININE (test code = 4.39 mg/dL 0.60-1.25 H 5510884990) TOTAL BILI (test code = 0.6 mg/dL 0.1-1.2 9263743147) CALCIUM (test code = 10.9 mg/dL 8.6-10.6 H 8890443589) T PROTEIN (test code = 9.1 g/dL 6.3-8.2 H 6190501935) ALBUMIN (test code = 5.7 g/dL 3.5-5.0 H 6047283741) ALK PHOS (test code = 97 U/L 34-122 8261488025) ALTv (test code = 43 U/L 5-50 1742-6) AST(SGOT) (test code = 29 U/L 13-40 2263817743) eGFR (test code = 14.2 mL/min/1.73m2 7815146558) GILBERTO (test code = GILBERTO) Association of [...] tests). Lab Interpretation Abnormal (test code = 44868-0) [facility]COMP. METABOLIC PANEL (01384)2022-11-27 14:49:21 Test Item Value Reference Range Interpretation Comments NA (test code = 131 mmol/L 135-145 L 0378953745) K (test code = 6.2 mmol/L 3.5-5.0 HH 0137137165) CL (test code = 95 mmol/L 98-108 L 7437625675) CO2 TOTAL (test code = 19 mmol/L 23-31 L 6537419822) AGAP (test code = 17 2-16 H 3339243299) BUN (test code = 43 mg/dL 7-23 H 9774267578) GLUCOSE (test code = 74 mg/dL 70-110 8792544398) CREATININE (test code = 4.39 mg/dL 0.60-1.25 H 4861215748) TOTAL BILI (test code = 0.6 mg/dL 0.1-1.2 1131957109) CALCIUM (test code = 10.9 mg/dL 8.6-10.6 H 8617551978) T PROTEIN (test code = 9.1 g/dL 6.3-8.2 H 2959604223) ALBUMIN (test code = 5.7 g/dL 3.5-5.0 H 2412863924) ALK PHOS (test code = 97 U/L 34-122 3405726530) ALTv (test code = 43 U/L 5-50 2-6) AST(SGOT) (test code = 29 U/L 13-40 1252099110) eGFR (test code = 14.2 mL/min/1.73m2 4160649664) GILBERTO (test code = GILBERTO) Association of [...] tests). Lab Interpretation Abnormal (test code = 49773-7) [facility] CampusPITO [id number] 14:33:54 Test Item Value Reference Range Interpretation Comments TROPONIN I (test code = 0.003 ng/mL <=0.034 5822032103) GILBERTO (test code = GILBERTO) Reference (Normal) [...] biotin. Lab Interpretation Normal (test code = 14713-4) [facility] CampusTROPONIN [id number] 14:33:54 Test Item Value Reference Range Interpretation Comments TROPONIN I (test code = 0.003 ng/mL <=0.034 5865954886) GILBERTO (test code = GILBERTO) Reference (Normal) [...] biotin. Lab Interpretation Normal (test code = 70136-2) [facility]2023-[facility] 14:23:47 Test Item Value Reference Range Interpretation Comments MAGNESIUM (test code = 2774013335) 2.2 mg/dL 1.7-2.4 Lab Interpretation (test code = Normal 96394-7) [facility]PHOSPHORUS2023-04-06 14:23:47 Test Item Value Reference Range Interpretation Comments PHOSPHORUS (test code = 8104023732) 8.1 mg/dL 2.5-5.0 H Lab Interpretation (test code = Abnormal 55842-0) [facility]MAG[facility]UM2023-04-06 14:23:47 Test Item Value Reference Range Interpretation Comments MAGNESIUM (test code = 9864121133) 2.2 mg/dL 1.7-2.4 Lab Interpretation (test code = Normal 00789-6) [facility]PHOSPHORUS2023-04-06 14:23:47 Test Item Value Reference Range Interpretation Comments PHOSPHORUS (test code = 8678172152) 8.1 mg/dL 2.5-5.0 H Lab Interpretation (test code = Abnormal 85267-7) [facility] CampusCB WITH [id number] 14:09:46 Test Item Value Reference Range Interpretation [...] RDW-SD (test code = 45.6 fL 38.5-51.6 97009-9) RDW-CV (test code = 14.5 % 12.1-15.4 788-0) PLT (test code = 454 See_Comment H [Automated 777-3) message] The sy stem which generated this result transmitted reference range : 150 - 328 10*3/ ?L. The reference r meredith was not used to interpret this result as normal/abnormal . MPV (test code = 8.9 fL 9.8-13.0 L 64148-1) NRBC/100 WBC (test 0.0 See_Comment [Automat ed code = 4811433884) message] The system which generated this result transmitted reference range : 0.0 - 10.0 /100 WBCs. The refer ence range was not u sed to interpret th is result as normal/abnormal . NRBC x10^3 (test code See_Comment [Auto mated = 6103248427) message] The s ystem which generated this result transmitted reference range : 10*3/?L. The reference range was not used to interpret this result as normal/abnormal . GRAN MAT (NEUT) % 73.5 % (test code = 770-8) IMM GRAN % (test code 1.20 % = 4172249816) LYMPH % (test code = 15.6 % 736-9) MONO % (test code = 8.6 % 5905-5) EOS % (test code = 0.6 % 713-8) BASO % (test code = 0.5 % 706-2) GRAN MAT x10^3(ANC) 7.41 10*3/uL 1.99-6.95 H (test code = 1084572832) IMM GRAN x10^3 (test 0.12 10*3/uL 0.00-0.06 H code = 2954824138) LYMPH x10^3 (test code 1.57 10*3/uL 1.09-3.23 = 731-0) MONO x10^3 (test code 0.87 10*3/uL 0.36-1.02 = 742-7) EOS x10^3 (test code = 0.06 10*3/uL 0.06-0.53 711-2) BASO x10^3 (test code 0.05 10*3/uL 0.01-0.09 = 704-7) Lab Interpretation Abnormal (test code = 89190-9) [facility] WITH [id number] 14:09:46 Test Item Value Reference Range Interpretation Comments WBC (test code = 10.08 See_Comment [Automated 0590-2) message] The sy stem which generated this result transmitted reference range : 4.20 - 10.70 10*3/?L. The reference range was not used to interpret this result as normal/abnormal . RBC (test code = 4.93 See_Comment [Automated 799-8) message] The sy stem which [...] RDW-SD (test code = 45.6 fL 38.5-51.6 38781-3) RDW-CV (test code = 14.5 % 12.1-15.4 788-0) PLT (test code = 454 See_Comment H [Automated 777-3) message] The sy stem which generated this result transmitted reference range : 150 - 328 10*3/ ?L. The reference r meredith was not used to interpret this result as normal/abnormal . MPV (test code = 8.9 fL 9.8-13.0 L 89999-6) NRBC/100 WBC (test 0.0 See_Comment [Automat ed code = 1329186712) message] The system which generated this result transmitted reference range : 0.0 - 10.0 /100 WBCs. The refer ence range was not u sed to interpret th is result as normal/abnormal . NRBC x10^3 (test code See_Comment [Auto mated = 7612436257) message] The s ystem which generated this result transmitted reference range : 10*3/?L. The reference range was not used to interpret this result as normal/abnormal . GRAN MAT (NEUT) % 73.5 % (test code = 770-8) IMM GRAN % (test code 1.20 % = 4680385283) LYMPH % (test code = 15.6 % 736-9) MONO % (test code = 8.6 % 5905-5) EOS % (test code = 0.6 % 713-8) BASO % (test code = 0.5 % 706-2) GRAN MAT x10^3(ANC) 7.41 10*3/uL 1.99-6.95 H (test code = 1148868297) IMM GRAN x10^3 (test 0.12 10*3/uL 0.00-0.06 H code = 2583782660) LYMPH x10^3 (test code 1.57 10*3/uL 1.09-3.23 = 731-0) MONO x10^3 (test code 0.87 10*3/uL 0.36-1.02 = 742-7) EOS x10^3 (test code = 0.06 10*3/uL 0.06-0.53 711-2) BASO x10^3 (test code 0.05 10*3/uL 0.01-0.09 = 704-7) Lab Interpretation Abnormal (test code = 10176-6) [facility] Acid Whole [id number] 14:08:40 Test Item Value Reference Range Interpretation Comments LACTIC ACID (test code = 2.99 mmol/L 0.50-2.20 H QUE S 9743459923) Lab Interpretation (test code = Abnormal 52856-7) [facility] Acid Whole [id number] 14:08:40 Test Item Value Reference Range Interpretation Comments LACTIC ACID (test code = 2.99 mmol/L 0.50-2.20 H QUE S 8020083243) Lab Interpretation (test code = Abnormal 93741-3) [facility] WITH [id number] 10:10:43 Test Item Value Reference Range Interpretation [...] RDW-SD (test code = 44.1 fL 38.5-51.6 93836-1) RDW-CV (test code = 13.9 % 12.1-15.4 788-0) PLT (test code = 274 See_Comment [Automated 777-3) message] The sy stem which generated this result transmitted reference range : 150 - 328 10*3/ ?L. The reference r meredith was not used to interpret this result as normal/abnormal . MPV (test code = 9.0 fL 9.8-13.0 L 27313-8) NRBC/100 WBC (test 0.0 See_Comment [Automat ed code = 7388548438) message] The system which generated this result transmitted reference range : 0.0 - 10.0 /100 WBCs. The refer ence range was not u sed to interpret th is result as normal/abnormal . NRBC x10^3 (test code See_Comment [Auto mated = 5959861737) message] The s ystem which generated this result transmitted reference range : 10*3/?L. The reference range was not used to interpret this result as normal/abnormal . GRAN MAT (NEUT) % 38.7 % (test code = 770-8) IMM GRAN % (test code 0.00 % = 0240397959) LYMPH % (test code = 48.7 % 736-9) MONO % (test code = 10.2 % 5905-5) EOS % (test code = 1.9 % 713-8) BASO % (test code = 0.5 % 706-2) GRAN MAT x10^3(ANC) 1.44 10*3/uL 1.99-6.95 L (test code = 1195710648) IMM GRAN x10^3 (test 0.00-0.06 code = 9907905855) LYMPH x10^3 (test code 1.81 10*3/uL 1.09-3.23 = 731-0) MONO x10^3 (test code 0.38 10*3/uL 0.36-1.02 = 742-7) EOS x10^3 (test code = 0.07 10*3/uL 0.06-0.53 711-2) BASO x10^3 (test code 0.01-0.09 = 704-7) Lab Interpretation Abnormal (test code = 37848-5) [facility] (NA, K, CL, CO2, GLUCOSE, BUN, CREATININE, CA)2022-11-22 10:02:02 Test Item Value Reference Range Interpretation Comments NA (test code = 130 mmol/L 135-145 L 5857481491) K (test code = 4.7 mmol/L 3.5-5.0 8006538040) CL (test code = 103 mmol/L 98-108 2063286102) CO2 TOTAL (test code = 23 mmol/L 23-31 8849808523) AGAP (test code = 4 2-16 9056050909) BUN (test code = 16 mg/dL 7-23 5446056314) GLUCOSE (test code = 81 mg/dL 70-110 1316178481) CREATININE (test code = 1.23 mg/dL 0.60-1.25 5683572433) CALCIUM (test code = 7.7 mg/dL 8.6-10.6 L 1538901112) eGFR (test code = 61.8 mL/min/1.73m2 8001112822) GILBERTO (test code = GILBERTO) Association of [...] tests). Lab Interpretation Abnormal (test code = 65572-3) [facility]2023-[facility] 10:02:02 Test Item Value Reference Range Interpretation Comments MAGNESIUM (test code = 2318315190) 1.6 mg/dL 1.7-2.4 L Lab Interpretation (test code = Abnormal 56815-9) [facility]ES[facility]2023-03-31 05:39:05 Test Item Value Reference Range Interpretation Comments MAGNESIUM (test code = 0283942805) 1.4 mg/dL 1.7-2.4 L Lab Interpretation (test code = Abnormal 78290-1) [facility] (NA, K, CL, CO2, GLUCOSE, BUN, CREATININE, CA)2022-11-21 05:39:04 Test Item Value Reference Range Interpretation Comments NA (test code = 126 mmol/L 135-145 L 5277939344) K (test code = 4.4 mmol/L 3.5-5.0 8296742447) CL (test code = 103 mmol/L 98-108 1827007019) CO2 TOTAL (test code = 18 mmol/L 23-31 L 0828552366) AGAP (test code = 5 2-16 5752882689) BUN (test code = 32 mg/dL 7-23 H 0315640741) GLUCOSE (test code = 80 mg/dL 70-110 7017749350) CREATININE (test code = 1.38 mg/dL 0.60-1.25 H 7797374616) CALCIUM (test code = 7.5 mg/dL 8.6-10.6 L 1099323227) eGFR (test code = 54.1 mL/min/1.73m2 6928741173) GILBERTO (test code = GILBERTO) Association of [...] tests). Lab Interpretation Abnormal (test code = 31863-8) [facility] WITH [id number] 05:19:03 Test Item Value Reference Range Interpretation Comments WBC (test code = 4.91 See_Comment [Automated 3147-2) message] The sy stem which generated this result transmitted reference range : 4.20 - 10.70 10*3/?L. The reference range was not used to interpret this result as normal/abnormal . RBC (test code = 3.32 See_Comment L [Automated 244-3) message] The sy stem which generated this [...] RDW-SD (test code = 43.2 fL 38.5-51.6 36003-2) RDW-CV (test code = 13.6 % 12.1-15.4 788-0) PLT (test code = 272 See_Comment [Automated 777-3) message] The sy stem which generated this result transmitted reference range : 150 - 328 10*3/ ?L. The reference r meredith was not used to interpret this result as normal/abnormal . MPV (test code = 9.0 fL 9.8-13.0 L 43696-6) NRBC/100 WBC (test 0.0 See_Comment [Automat ed code = 4338048123) message] The system which generated this result transmitted reference range : 0.0 - 10.0 /100 WBCs. The refer ence range was not u sed to interpret th is result as normal/abnormal . NRBC x10^3 (test code See_Comment [Auto mated = 7313830910) message] The s ystem which generated this result transmitted reference range : 10*3/?L. The reference range was not used to interpret this result as normal/abnormal . GRAN MAT (NEUT) % 51.1 % (test code = 770-8) IMM GRAN % (test code 0.20 % = 6505321066) LYMPH % (test code = 37.3 % 736-9) MONO % (test code = 10.0 % 5905-5) EOS % (test code = 1.0 % 713-8) BASO % (test code = 0.4 % 706-2) GRAN MAT x10^3(ANC) 2.51 10*3/uL 1.99-6.95 (test code = 9935556557) IMM GRAN x10^3 (test 0.00-0.06 code = 3528192552) LYMPH x10^3 (test code 1.83 10*3/uL 1.09-3.23 = 731-0) MONO x10^3 (test code 0.49 10*3/uL 0.36-1.02 = 742-7) EOS x10^3 (test code = 0.05 10*3/uL 0.06-0.53 L 711-2) BASO x10^3 (test code 0.01-0.09 = 704-7) Lab Interpretation Abnormal (test code = 51708-2) [facility] + LACTIC [id number] 05:15:42 Test Item Value Reference Range Interpretation Comments PH (test code = 7.32 7.32-7.42 0186778757) PCO2 PANKAJ (test code = 32 See_Comment L [Auto mated 3217512641) message] The sy stem which generated this result transmitted reference range : 41 - 51 mmHg. The reference range was not used to interpret this result as normal/abnormal . PO2 PANKAJ (test code = 45 See_Comment H [Autom ated [id number]) message] The sy stem which generated this result transmitted reference range : 25 - 40 mmHg. The reference range was not used to interpret this result as normal/abnormal . HCO3 PANKAJ (test code = 16 See_Comment L [Auto mated [id number]) message] The sy stem which generated this result transmitted reference range : 24 - 28 mEq/L. The reference range was not used to interpret this result as normal/abnormal . AC VBE(BEAKER) (test -8.8 mEq/L code = 5800003110) THB PANKAJ (test code = 11.2 g/dL 13.5-18.0 L [id number]) %O2HB PANKAJ (test code = 80.5 % 52.0-63.0 H [id number]) %COHB PANKAJ (test code = 0.1 % 0.0-1.5 [id number]) %METHB PANKAJ (test code = 0.3 % 0.4-1.5 L [id number]) VOL%O2 PNAKAJ (test code = 12.7 % 6.0-12.0 H 1158073859) NA (test code = 126 mmol/L 135-145 L [id number]) K+ (test code = 4.1 mmol/L 3.5-5.0 8675758726) AC CA IONZ (test code = 4.60 mg/dL 4.50-5.30 5128426780) GLUCOSE (test code = 78 mg/dL 70-110 8852908891) LACTIC ACID (test code 1.07 mmol/L 0.50-2.20 = 2845704717) Lab Interpretation Abnormal (test code = 68321-7) [facility] [id number] 22:34:33 Test Item Value Reference Range Interpretation Comments FREE T4 (test code = 1.10 See_Comment [Autom ated message] [id number]) The system [employer] generated this result transmitted ref erence range: 0.78 - 2 .20 ng/dL:. The ref erence range was not u sed to interpret this result as normal/abnor mal. Lab Interpretation (test Normal code = 55174-5) [facility] STIMULATING [id number] 21:13:59 Test Item Value Reference Range Interpretation Comments TSH (test code = 4.81 See_Comment H Biotin has been [id number]) reported to cau se a negative bias, interpret resul ts relative to lisbeth sinclair's use of biotin. [Automated mess age] The system The Dodo generated this result transmitted ref erence range: 0.45 - 4 .70 mIU/L. The refe rence range was not u sed to interpret this result as normal/abnor mal. Lab Interpretation (test Abnormal code = 99675-0) [facility] [id number] 15:00:25 Test Item Value Reference Range Interpretation Comments LACTIC ACID (test code = 2.76 mmol/L 0.50-2.20 H 7253523763) Lab Interpretation (test code = Abnormal 01320-5) [facility] 13:27:44 Test Item Value Reference Range Interpretation Comments ALBUMIN (test code = 0064512617) 3.4 g/dL 3.5-5.0 L Lab Interpretation (test code = Abnormal 58554-9) [facility] Whole Gasjv5025-39-33 11:43:05 Test Item Value Reference Range Interpretation Comments LACTIC ACID (test code = 2.56 mmol/L 0.50-2.20 H QUE S 2024325957) Lab Interpretation (test code = Abnormal 79295-0) [facility] CampusCORTISOL [id number] 11:22:18 Test Item Value Reference Range Interpretation Comments MARIAM AM (test code = 4.9 ug/dL 4.5-23.0 6995777922) GILBERTO (test code = GILBERTO) Biotin has been reported to cause a positive bias, interpret results relative to patient's use of biotin. Lab Interpretation (test Normal code = 61639-6) [facility] CampusCB WITH [id number] 11:14:33 Test Item Value Reference Range Interpretation Comments WBC (test code = 4.45 See_Comment [Automated 4190-2) message] The sy stem [...] RDW-SD (test code = 42.9 fL 38.5-51.6 35987-8) RDW-CV (test code = 13.9 % 12.1-15.4 788-0) PLT (test code = 310 See_Comment [Automated 927-3) message] The sy stem which generated this result transmitted reference range : 150 - 328 10*3/ ?L. The reference r mreedith was not used to interpret this result as normal/abnormal . MPV (test code = 9.2 fL 9.8-13.0 L 50357-5) NRBC/100 WBC (test 0.0 See_Comment [Automat ed code = 2802718363) message] The system which generated this result transmitted reference range : 0.0 - 10.0 /100 WBCs. The refer ence range was not u sed to interpret th is result as normal/abnormal . NRBC x10^3 (test code See_Comment [Auto mated = 3809482215) message] The s ystem which generated this result transmitted reference range : 10*3/?L. The reference range was not used to interpret this result as normal/abnormal . GRAN MAT (NEUT) % 53.3 % (test code = 770-8) IMM GRAN % (test code 0.20 % = 8884680194) LYMPH % (test code = 36.2 % 736-9) MONO % (test code = 8.8 % 5905-5) EOS % (test code = 1.1 % 713-8) BASO % (test code = 0.4 % 706-2) GRAN MAT x10^3(ANC) 2.37 10*3/uL 1.99-6.95 (test code = 9252641942) IMM GRAN x10^3 (test 0.00-0.06 code = 1717863676) LYMPH x10^3 (test code 1.61 10*3/uL 1.09-3.23 = 731-0) MONO x10^3 (test code 0.39 10*3/uL 0.36-1.02 = 742-7) EOS x10^3 (test code = 0.05 10*3/uL 0.06-0.53 L 711-2) BASO x10^3 (test code 0.01-0.09 = 704-7) Lab Interpretation Abnormal (test code = 85382-1) [facility] METABOLIC PANEL (NA, K, CL, CO2, GLUCOSE, BUN, CREATININE, CA)2022-11-20 10:49:51 Test Item Value Reference Range Interpretation Comments NA (test code = 125 mmol/L 135-145 L 8287866837) K (test code = 4.7 mmol/L 3.5-5.0 Slight 7280483184) hemolysis CL (test code = 104 mmol/L 98-108 7787766558) CO2 TOTAL (test code 13 mmol/L 23-31 L = 2308600162) AGAP (test code = 8 2-16 9958057193) BUN (test code = 60 mg/dL 7-23 H Slight 4692423720) hemolysis GLUCOSE (test code = 88 mg/dL 70-110 7766113594) CREATININE (test code 1.97 mg/dL 0.60-1.25 H = 2499876865) CALCIUM (test code = 7.7 mg/dL 8.6-10.6 L 7023020218) eGFR (test code = 35.9 mL/min/1.73m2 7523209179) GILBERTO (test code = GILBERTO) Association of [...] tests). Lab Interpretation Abnormal (test code = 38338-8) [facility] CampusMAGNESIUM2023-03-30 10:49:51 Test Item Value Reference Range Interpretation Comments MAGNESIUM (test code = 9716957707) 1.7 mg/dL 1.7-2.4 Lab Interpretation (test code = Normal 56803-4) [facility] METABOLIC PANEL (NA, K, CL, CO2, GLUCOSE, BUN, CREATININE, CA)2022-11-20 01:11:20 Test Item Value Reference Range Interpretation Comments NA (test code = 126 mmol/L 135-145 L 1755492592) K (test code = 4.3 mmol/L 3.5-5.0 0043422584) CL (test code = 98 mmol/L 98-108 1375546595) CO2 TOTAL (test code = 19 mmol/L 23-31 L 3484655780) AGAP (test code = 9 2-16 1607269755) BUN (test code = 78 mg/dL 7-23 H 0047678709) GLUCOSE (test code = 101 mg/dL 70-110 4071043760) CREATININE (test code = 2.49 mg/dL 0.60-1.25 H 8809027944) CALCIUM (test code = 7.8 mg/dL 8.6-10.6 L 5181066800) eGFR (test code = 27.4 mL/min/1.73m2 7008867907) GILBERTO (test code = GILBERTO) Association of [...] tests). Lab Interpretation Abnormal (test code = 39580-8) [facility] METABOLIC PANEL (NA, K, CL, CO2, GLUCOSE, BUN, CREATININE, CA)2022-11-19 20:31:33 Test Item Value Reference Range Interpretation Comments NA (test code = 123 mmol/L 135-145 L 1518674034) K (test code = 4.4 mmol/L 3.5-5.0 8255274433) CL (test code = 97 mmol/L 98-108 L 6605773802) CO2 TOTAL (test code = 15 mmol/L 23-31 L 7112305652) AGAP (test code = 11 2-16 7842840759) BUN (test code = 81 mg/dL 7-23 H 4792137289) GLUCOSE (test code = 121 mg/dL 70-110 H 7127653726) CREATININE (test code = 2.61 mg/dL 0.60-1.25 H 3069952571) CALCIUM (test code = 7.7 mg/dL 8.6-10.6 L 8260708353) eGFR (test code = 25.9 mL/min/1.73m2 9604059313) GILBERTO (test code = GILBERTO) Association of [...] tests). Lab Interpretation Abnormal (test code = 63467-4) [facility] CampusETHANOL2023-03-29 17:12:43 ALCOHOL<10mg/dL11/19/2022 12:12 PM CDTUTMB LABORATORY SERVICESToxic Greater than or equal to 80 mg/dL. NOTE: Whole blood values are approximately 10% to 15% lower than serum and plasma.[facility] CampusCOMP. METABOLIC PANEL ([id number])2022-11-19 16:28:25 Test Item Value Reference Range Interpretation Comments NA (test code = 126 mmol/L 135-145 L 7241953937) K (test code = 5.6 mmol/L 3.5-5.0 H 1114585430) CL (test code = 92 mmol/L 98-108 L 0427447746) CO2 TOTAL (test code = 14 mmol/L 23-31 L 7877157991) AGAP (test code = 20 2-16 H 0689153636) BUN (test code = 89 mg/dL 7-23 H 0245968943) GLUCOSE (test code = 98 mg/dL 70-110 4798805962) CREATININE (test code = 3.16 mg/dL 0.60-1.25 H 5482513990) TOTAL BILI (test code = 0.4 mg/dL 0.1-1.3 7721170851) CALCIUM (test code = 9.6 mg/dL 8.6-10.6 1026525925) T PROTEIN (test code = 8.0 g/dL 6.3-8.2 4111915324) ALBUMIN (test code = 5.0 g/dL 3.5-5.0 3200434088) ALK PHOS (test code = 102 U/L 34-122 1645539214) ALTv (test code = 38 U/L 5-50 1742-6) AST(SGOT) (test code = 32 U/L 13-40 7126658666) eGFR (test code = 20.8 mL/min/1.73m2 6875836793) GILBERTO (test code = GILBERTO) Association of [...] tests). Lab Interpretation Abnormal (test code = 99646-8) [facility] CampusMAGNESIUM2023-03-29 16:28:25 Test Item Value Reference Range Interpretation Comments MAGNESIUM (test code = 1394700438) 2.4 mg/dL 1.7-2.4 Lab Interpretation (test code = Normal 96934-1) [facility] CampusCB WITH [id number] 16:12:44 Test Item Value Reference Range Interpretation Comments WBC (test code = 5.96 See_Comment [Automated 6690-2) message] The sy stem which generated this result transmitted reference range : 4.20 - 10.70 10*3/?L. The reference range was not used to interpret this result as normal/abnormal . RBC (test code = 4.73 See_Comment [Automated 789-8) message] The sy stem [...] RDW-SD (test code = 43.5 fL 38.5-51.6 04552-6) RDW-CV (test code = 14.0 % 12.1-15.4 788-0) PLT (test code = 446 See_Comment H [Automated 777-3) message] The sy stem which generated this result transmitted reference range : 150 - 328 10*3/ ?L. The reference r meredith was not used to interpret this result as normal/abnormal . MPV (test code = 9.0 fL 9.8-13.0 L 38069-7) NRBC/100 WBC (test 0.0 See_Comment [Automat ed code = 8478632468) message] The system which generated this result transmitted reference range : 0.0 - 10.0 /100 WBCs. The refer ence range was not u sed to interpret th is result as normal/abnormal . NRBC x10^3 (test code See_Comment [Auto mated = 5628683391) message] The s ystem which generated this result transmitted reference range : 10*3/?L. The reference range was not used to interpret this result as normal/abnormal . GRAN MAT (NEUT) % 73.7 % (test code = 770-8) IMM GRAN % (test code 0.30 % = 7059335894) LYMPH % (test code = 17.3 % 736-9) MONO % (test code = 7.9 % 5905-5) EOS % (test code = 0.5 % 713-8) BASO % (test code = 0.3 % 706-2) GRAN MAT x10^3(ANC) 4.39 10*3/uL 1.99-6.95 (test code = 3897221270) IMM GRAN x10^3 (test 0.00-0.06 code = 4498741285) LYMPH x10^3 (test code 1.03 10*3/uL 1.09-3.23 L = 731-0) MONO x10^3 (test code 0.47 10*3/uL 0.36-1.02 = 742-7) EOS x10^3 (test code = 0.03 10*3/uL 0.06-0.53 L 711-2) BASO x10^3 (test code 0.01-0.09 = 704-7) Lab Interpretation Abnormal (test code = 17904-2) [facility] METABOLIC PANEL (NA, K, CL, CO2, GLUCOSE, BUN, CREATININE, CA)2022-11-04 21:24:07 Test Item Value Reference Range Interpretation Comments NA (test code = 129 mmol/L 135-145 L 1488869302) K (test code = 3.8 mmol/L 3.5-5.0 Slight 6039163025) hemolysis CL (test code = 105 mmol/L 98-108 1468334823) CO2 TOTAL (test code 16 mmol/L 23-31 L = 2295352108) AGAP (test code = 8 2-16 1724199687) BUN (test code = 19 mg/dL 7-23 Slight 0408729020) hemolysis GLUCOSE (test code = 88 mg/dL 70-110 7647557974) CREATININE (test code 1.10 mg/dL 0.60-1.25 = 4192559236) CALCIUM (test code = 7.9 mg/dL 8.6-10.6 L 7582284869) eGFR (test code = 70.3 mL/min/1.73m2 2752307807) GILBERTO (test code = GILBERTO) Association of [...] tests). Lab Interpretation Abnormal (test code = 52046-2) [facility]2023-03-14 18:44:02 Test Item Value Reference Range Interpretation Comments NA (test code = 6153462516) 128 mmol/L 135-145 L Lab Interpretation (test code = Abnormal 93495-3) [facility] [id number] 14:16:32 Test Item Value Reference Range Interpretation Comments T. VOL U (test code = 2400 mL 9024869141) HR COLLECT (test code 24 Hours = 8442277511) NA URINE (test code = mmol/L 6440504941) NA U/24H (test code = Unable to calculate 1804755649) because, SODIUM URINE is less than the s ensitivity of the analyzer . [facility] BQVFE3020-08-68 13:51:27 Test Item Value Reference Range Interpretation Comments T. VOL U (test code = 2400 mL 7389465997) HR COLLECT (test code = 24 Hours 0142299099) K URINE (test code = 3.2 mmol/L 5334285359) K U/24H (test code = 7.7 See_Comment L [Autom ated message] 0362441947) The system The [employer]odo generated this result transmit dain reference range : 25.0 - 125.0 mmol/24H. The reference range was not used to interpret this result as normal/abnormal . Lab Interpretation Abnormal (test code = 73429-4) [facility] Metabolic Panel (NA, K, CL, CO2, GLUCOSE, BUN, CREATININE, CA)2022-11-03 11:23:03 Test Item Value Reference Range Interpretation Comments NA (test code = 127 mmol/L 135-145 L 1737266026) K (test code = 3.4 mmol/L 3.5-5.0 L 4808364265) CL (test code = 102 mmol/L 98-108 3863118350) CO2 TOTAL (test code = 17 mmol/L 23-31 L 9319254211) AGAP (test code = 8 2-16 6213305918) BUN (test code = 38 mg/dL 7-23 H 5540505373) GLUCOSE (test code = 84 mg/dL 70-110 2902647160) CREATININE (test code = 1.44 mg/dL 0.60-1.25 H 1304510332) CALCIUM (test code = 8.0 mg/dL 8.6-10.6 L 1066503215) eGFR (test code = 51.5 mL/min/1.73m2 2626676578) GILBERTO (test code = GILBERTO) Association of [...] tests). Lab Interpretation Abnormal (test code = 32491-6) [facility] CampusMagnesium Paxal8773-08-30 11:20:32 Test Item Value Reference Range Interpretation Comments MAGNESIUM (test code = 2387524639) 1.8 mg/dL 1.7-2.4 Lab Interpretation (test code = Normal 99179-6) [facility] with Optducbzipjz0723-33-07 11:11:14 Test Item Value Reference Range Interpretation Comments WBC (test code = 7.33 See_Comment [Automated 7590-2) message] The sy stem which generated this result transmitted reference range : 4.20 - 10.70 10*3/?L. The reference range was not used to interpret this result as normal/abnormal . RBC (test code = 3.69 See_Comment L [Automated 949-8) message] The sy [...] RDW-SD (test code = 45.9 fL 38.5-51.6 88135-0) RDW-CV (test code = 14.4 % 12.1-15.4 788-0) PLT (test code = 301 See_Comment [Automated 777-3) message] The sy stem which generated this result transmitted reference range : 150 - 328 10*3/ ?L. The reference r meredith was not used to interpret this result as normal/abnormal . MPV (test code = 9.2 fL 9.8-13.0 L 07320-4) NRBC/100 WBC (test 0.0 See_Comment [Automat ed code = 3652325701) message] The system which generated this result transmitted reference range : 0.0 - 10.0 /100 WBCs. The refer ence range was not u sed to interpret th is result as normal/abnormal . NRBC x10^3 (test code See_Comment [Auto mated = 9938132472) message] The s ystem which generated this result transmitted reference range : 10*3/?L. The reference range was not used to interpret this result as normal/abnormal . GRAN MAT (NEUT) % 65.3 % (test code = 770-8) IMM GRAN % (test code 0.30 % = 0535795428) LYMPH % (test code = 23.9 % 736-9) MONO % (test code = 8.9 % 5905-5) EOS % (test code = 1.2 % 713-8) BASO % (test code = 0.4 % 706-2) GRAN MAT x10^3(ANC) 4.79 10*3/uL 1.99-6.95 (test code = 2650807386) IMM GRAN x10^3 (test 0.00-0.06 code = 1099905585) LYMPH x10^3 (test code 1.75 10*3/uL 1.09-3.23 = 731-0) MONO x10^3 (test code 0.65 10*3/uL 0.36-1.02 = 742-7) EOS x10^3 (test code = 0.09 10*3/uL 0.06-0.53 711-2) BASO x10^3 (test code 0.03 10*3/uL 0.01-0.09 = 704-7) Lab Interpretation Abnormal (test code = 57062-0) [facility] CampusSODIUM2023-03-13 04:51:03 Test Item Value Reference Range Interpretation Comments NA (test code = 0792744379) 125 mmol/L 135-145 L Lab Interpretation (test code = Abnormal 19617-7) [facility] CampusLactic Acid Whole [id number] 23:05:03 Test Item Value Reference Range Interpretation Comments LACTIC ACID (test code = 1.46 mmol/L 0.50-2.20 3024615563) Lab Interpretation (test code = Normal 04003-1) [facility]MAGNESIUM2023-03-12 21:19:07 Test Item Value Reference Range Interpretation Comments MAGNESIUM (test code = 5698757551) 2.1 mg/dL 1.7-2.4 Lab Interpretation (test code = Normal 92521-1) [facility] CampusCOMP. METABOLIC PANEL ([id number])2022-11-02 21:19:06 Test Item Value Reference Range Interpretation Comments NA (test code = 123 mmol/L 135-145 L 1849925884) K (test code = 3.9 mmol/L 3.5-5.0 2913568059) CL (test code = 98 mmol/L 98-108 7454646679) CO2 TOTAL (test code = 18 mmol/L 23-31 L 7509582731) AGAP (test code = 7 2-16 6662235266) BUN (test code = 55 mg/dL 7-23 H 6394089896) GLUCOSE (test code = 87 mg/dL 70-110 8230296748) CREATININE (test code = 2.31 mg/dL 0.60-1.25 H 3474798847) TOTAL BILI (test code = 0.4 mg/dL 0.1-1.9 1550685840) CALCIUM (test code = 8.3 mg/dL 8.6-10.6 L 7460494470) T PROTEIN (test code = 6.2 g/dL 6.3-8.2 L 7103746890) ALBUMIN (test code = 3.7 g/dL 3.5-5.0 6786231792) ALK PHOS (test code = 85 U/L 34-122 8424885054) ALTv (test code = 21 U/L 5-50 1742-6) AST(SGOT) (test code = 24 U/L 13-40 3900916976) eGFR (test code = 29.9 mL/min/1.73m2 0356347879) GILBERTO (test code = GILBERTO) Association of [...] tests). Lab Interpretation Abnormal (test code = 65253-3) [facility] CampusTHYROID STIMULATING YUMOUGO7179-89-98 19:17:37 Test Item Value Reference Range Interpretation Comments TSH (test code = 3.84 See_Comment [Automated message] 5642364683) The system The [employer]odo generated this result transmitted ref erence range: 0.45 - 4 .70 mIU/L. The refe rence range was not u sed to interpret this result as normal/abnor mal. Lab Interpretation (test Normal code = 53437-0) [facility] CampusFREE [id number] 19:03:33 Test Item Value Reference Range Interpretation Comments FREE T4 (test code = 1.43 See_Comment [Autom ated message] 1649694191) The system The [employer]odo generated this result transmitted ref erence range: 0.78 - 2 .20 ng/dL:. The ref erence range was not u sed to interpret this result as normal/abnor mal. Lab Interpretation (test Normal code = 48744-8) [facility] CampusHEPATIC FUNCTION PANEL ([id number]) (ALB,T.PRO,BILI T,BU/BC,ALT,AST,ALK PHOS)2022-11-02 18:46:31 Test Item Value Reference Range Interpretation Comments TOTAL BILI (test code = 1465361784) 0.3 mg/dL 0.1-1.1 BILI UNCON (test code = 5472111730) 0.0 mg/dL 0.1-1.1 L BILI CONJ (test code = 4559536072) 0.0 mg/dL 0.0-0.3 T PROTEIN (test code = 4891889904) 6.7 g/dL 6.3-8.2 ALBUMIN (test code = 7599582368) 4.2 g/dL 3.5-5.0 ALK PHOS (test code = 0001312897) 101 U/L 34-122 ALTv (test code = 1742-6) 22 U/L 5-50 AST(SGOT) (test code = 8371262446) 25 U/L 13-40 Lab Interpretation (test code = Abnormal 09966-4) [facility] CampusPhosphorus Whwsp5140-82-56 18:46:31 Test Item Value Reference Range Interpretation Comments PHOSPHORUS (test code = 7521841833) 4.7 mg/dL 2.5-5.0 Lab Interpretation (test code = Normal 43143-4) [facility] CampusLactic Acid Whole Wqzfh5907-16-07 17:37:44 Test Item Value Reference Range Interpretation Comments LACTIC ACID (test code = 2.67 mmol/L 0.50-2.20 H 0402141168) Lab Interpretation (test code = Abnormal 76854-2) [facility] CampusTROPONIN [id number] 13:55:32 Test Item Value Reference Range Interpretation Comments TROPONIN I (test code = <=0.034 5252521244) GILBERTO (test code = GILBERTO) Reference (Normal) [...] biotin. Lab Interpretation Normal (test code = 41391-0) [facility]. METABOLIC PANEL (04479)2022-11-02 13:44:10 Test Item Value Reference Range Interpretation Comments NA (test code = 128 mmol/L 135-145 L 7874083046) K (test code = 5.1 mmol/L 3.5-5.0 H 6275260489) CL (test code = 94 mmol/L 98-108 L 2417596542) CO2 TOTAL (test code = 17 mmol/L 23-31 L 7399038650) AGAP (test code = 17 2-16 H 2455807194) BUN (test code = 61 mg/dL 7-23 H 8524858386) GLUCOSE (test code = 73 mg/dL 70-110 0209522889) CREATININE (test code = 3.83 mg/dL 0.60-1.25 H 0364505003) TOTAL BILI (test code = 0.6 mg/dL 0.1-1.3 1829267086) CALCIUM (test code = 10.3 mg/dL 8.6-10.6 1804068449) T PROTEIN (test code = 8.9 g/dL 6.3-8.2 H 7631781510) ALBUMIN (test code = 5.5 g/dL 3.5-5.0 H 3024135473) ALK PHOS (test code = 105 U/L 34-122 6083453863) ALTv (test code = 28 U/L 5-50 1742-6) AST(SGOT) (test code = 28 U/L 13-40 5791076619) eGFR (test code = 16.7 mL/min/1.73m2 9628205403) GILBERTO (test code = GILBERTO) Association of [...] tests). Lab Interpretation Abnormal (test code = 61332-8) [facility] CampusLIPASE2023-03-12 13:44:10 Test Item Value Reference Range Interpretation Comments LIPASE (test code = 9003853137) 363 U/L 0-220 H Lab Interpretation (test code = Abnormal 26494-9) [facility] CampusMAGNESIUM2023-03-12 13:44:10 Test Item Value Reference Range Interpretation Comments MAGNESIUM (test code = 9000064501) 2.6 mg/dL 1.7-2.4 H Lab Interpretation (test code = Abnormal 39842-4) [facility] WITH [id number] 13:32:52 Test Item Value Reference Range Interpretation Comments WBC (test code = 10.22 See_Comment [Automated 6690-2) message] The sy stem which generated this result transmitted reference range : 4.20 - 10.70 10*3/?L. The reference range was not used to interpret this result as normal/abnormal . RBC (test code = 5.11 See_Comment [Automated 789-8) message] The sy stem [...] RDW-SD (test code = 46.5 fL 38.5-51.6 10741-8) RDW-CV (test code = 14.5 % 12.1-15.4 788-0) PLT (test code = 405 See_Comment H [Automated 777-3) message] The sy stem which generated this result transmitted reference range : 150 - 328 10*3/ ?L. The reference r meredith was not used to interpret this result as normal/abnormal . MPV (test code = 9.0 fL 9.8-13.0 L 79469-6) NRBC/100 WBC (test 0.0 See_Comment [Automat ed code = 3117307859) message] The system which generated this result transmitted reference range : 0.0 - 10.0 /100 WBCs. The refer ence range was not u sed to interpret th is result as normal/abnormal . NRBC x10^3 (test code See_Comment [Auto mated = 8113647255) message] The s ystem which generated this result transmitted reference range : 10*3/?L. The reference range was not used to interpret this result as normal/abnormal . GRAN MAT (NEUT) % 72.2 % (test code = 770-8) IMM GRAN % (test code 0.70 % = 7977173358) LYMPH % (test code = 17.5 % 736-9) MONO % (test code = 8.4 % 5905-5) EOS % (test code = 0.8 % 713-8) BASO % (test code = 0.4 % 706-2) GRAN MAT x10^3(ANC) 7.38 10*3/uL 1.99-6.95 H (test code = 0602645822) IMM GRAN x10^3 (test 0.07 10*3/uL 0.00-0.06 H code = 2621102880) LYMPH x10^3 (test code 1.79 10*3/uL 1.09-3.23 = 731-0) MONO x10^3 (test code 0.86 10*3/uL 0.36-1.02 = 742-7) EOS x10^3 (test code = 0.08 10*3/uL 0.06-0.53 711-2) BASO x10^3 (test code 0.04 10*3/uL 0.01-0.09 = 704-7) Lab Interpretation Abnormal (test code = 61912-0) [facility] CampusLIPASE2023-02-27 02:09:43 Test Item Value Reference Range Interpretation Comments LIPASE (test code = 6239037646) 260 U/L 0-220 H Lab Interpretation (test code = Abnormal 67805-2) [facility] CampusCOMP. METABOLIC PANEL ([id number])2022-10-20 02:09:42 Test Item Value Reference Range Interpretation Comments NA (test code = 130 mmol/L 135-145 L 3222372723) K (test code = 4.6 mmol/L 3.5-5.0 Slight 6106979485) hemolysis CL (test code = 100 mmol/L 98-108 1635262404) CO2 TOTAL (test code 20 mmol/L 23-31 L = 7805711304) AGAP (test code = 10 2-16 3525086536) BUN (test code = 31 mg/dL 7-23 H Slight 2593206173) hemolysis GLUCOSE (test code = 90 mg/dL 70-110 1522957327) CREATININE (test code 1.67 mg/dL 0.60-1.25 H = 7881974283) TOTAL BILI (test code 0.6 mg/dL 0.1-1.1 = 7471654317) CALCIUM (test code = 9.0 mg/dL 8.6-10.6 6413602373) T PROTEIN (test code 7.1 g/dL 6.3-8.2 = 3298627974) ALBUMIN (test code = 4.5 g/dL 3.5-5.0 7410475446) ALK PHOS (test code = 73 U/L 34-122 Slight 2072103052) hemolysis ALTv (test code = 22 U/L 5-50 1742-6) AST(SGOT) (test code 29 U/L 13-40 Slight = 0406070594) hemolysis eGFR (test code = 43.4 mL/min/1.73m2 4108023799) GILBERTO (test code = GILBERTO) Association of [...] tests). Lab Interpretation Abnormal (test code = 79006-8) [facility]09:42 Test Item Value Reference Range Interpretation Comments MAGNESIUM (test code = 5276513893) 1.9 mg/dL 1.7-2.4 Lab Interpretation (test code = Normal 71888-8) [facility] WITH [id number] 02:02:05 Test Item Value Reference Range Interpretation Comments WBC (test code = 9.57 See_Comment [Automated 6690-2) message] The sy stem [...] RDW-SD (test code = 51.4 fL 38.5-51.6 35704-2) RDW-CV (test code = 15.7 % 12.1-15.4 H 788-0) PLT (test code = 330 See_Comment H [Automated 777-3) message] The sy stem which generated this result transmitted reference range : 150 - 328 10*3/ ?L. The reference r meredith was not used to interpret this result as normal/abnormal . MPV (test code = 8.9 fL 9.8-13.0 L 53196-2) NRBC/100 WBC (test 0.0 See_Comment [Automat ed code = [id number]) message] The system which generated this result transmitted reference range : 0.0 - 10.0 /100 WBCs. The refer ence range was not u sed to interpret th is result as normal/abnormal . NRBC x10^3 (test code See_Comment [Auto mated = 1655471034) message] The s ystem which generated this result transmitted reference range : 10*3/?L. The reference range was not used to interpret this result as normal/abnormal . GRAN MAT (NEUT) % 64.1 % (test code = 770-8) IMM GRAN % (test code 0.40 % = 1577323497) LYMPH % (test code = 22.7 % 736-9) MONO % (test code = 11.0 % 5905-5) EOS % (test code = 1.3 % 713-8) BASO % (test code = 0.5 % 706-2) GRAN MAT x10^3(ANC) 6.14 10*3/uL 1.99-6.95 (test code = 0930730251) IMM GRAN x10^3 (test 0.04 10*3/uL 0.00-0.06 code = 0358047305) LYMPH x10^3 (test code 2.17 10*3/uL 1.09-3.23 = 731-0) MONO x10^3 (test code 1.05 10*3/uL 0.36-1.02 H = 742-7) EOS x10^3 (test code = 0.12 10*3/uL 0.06-0.53 711-2) BASO x10^3 (test code 0.05 10*3/uL 0.01-0.09 = 704-7) Lab Interpretation Abnormal (test code = 85165-8) [facility] METABOLIC PANEL (NA, K, CL, CO2, GLUCOSE, BUN, CREATININE, CA)2022-05-21 12:12:49 Test Item Value Reference Range Interpretation Comments NA (test code = 132 mmol/L 135-145 L 7344396465) K (test code = 3.4 mmol/L 3.5-5 L 3562308529) CL (test code = 106 mmol/L 98-108 7936429429) CO2 TOTAL (test code = 22 mmol/L 23-31 L 7550459916) AGAP (test code = 2-16 0275491956) BUN (test code = 22 mg/dL 7-23 3319048082) GLUCOSE (test code = 87 mg/dL 70-110 7056252518) CREATININE (test code = 0.98 mg/dL 0.6-1.25 7052948607) CALCIUM (test code = 7.8 mg/dL 8.6-10.6 L 3987894130) eGFR (test code = mL/min/1.73m2 8581498471) GILBERTO (test code = GILBERTO) Association of [...] tests). Lab Interpretation Abnormal (test code = 37873-2) [facility] 12:12:49 Test Item Value Reference Range Interpretation Comments MAGNESIUM (test code = 7246158708) 1.7 mg/dL 1.7-2.4 Lab Interpretation (test code = Normal 42782-7) [facility]2022-[facility]-28 12:12:29 Test Item Value Reference Range Interpretation Comments PHOSPHORUS (test code = 6615637109) 2.3 mg/dL 2.5-5 L Lab Interpretation (test code = Abnormal 88678-1) [facility] WITH [id number] 11:40:10 Test Item Value Reference Range Interpretation [...] RDW-SD (test code = 46.9 fL 38.5-51.6 46812-7) RDW-CV (test code = 15.4 % 12.1-15.4 788-0) PLT (test code = See_Comment [Automated 777-3) message] The sy stem which generated this result transmitted reference range : 150 - 328 10*3/ ?L. The reference r meredith was not used to interpret this result as normal/abnormal . MPV (test code = 9.3 fL 9.8-13 L 88900-8) NRBC/100 WBC (test See_Comment [Automat ed code = 6894942124) message] The system which generated this result transmitted reference range : 0.0 - 10.0 /100 WBCs. The refer ence range was not u sed to interpret th is result as normal/abnormal . NRBC x10^3 (test code See_Comment [Auto mated = 0319923778) message] The s ystem which generated this result transmitted reference range : 10*3/?L. The reference range was not used to interpret this result as normal/abnormal . GRAN MAT (NEUT) % 69.3 % (test code = 770-8) IMM GRAN % (test code 0.20 % = 4975631901) LYMPH % (test code = 18.2 % 736-9) MONO % (test code = 9.9 % 5905-5) EOS % (test code = 2.0 % 713-8) BASO % (test code = 0.4 % 706-2) GRAN MAT x10^3(ANC) 3.51 10*3/uL 1.99-6.95 (test code = 0876470355) IMM GRAN x10^3 (test 0-0.06 code = 2175394878) LYMPH x10^3 (test code 0.92 10*3/uL 1.09-3.23 L = 731-0) MONO x10^3 (test code 0.50 10*3/uL 0.36-1.02 = 742-7) EOS x10^3 (test code = 0.10 10*3/uL 0.06-0.53 711-2) BASO x10^3 (test code 0.01-0.09 = 704-7) Lab Interpretation Abnormal (test code = 72971-7) [facility]. METABOLIC PANEL ([id number])2022-05-20 01:54:47 Test Item Value Reference Range Interpretation Comments NA (test code = 131 mmol/L 135-145 L 1260177334) K (test code = 4.6 mmol/L 3.5-5 3856621535) CL (test code = 102 mmol/L 98-108 6014367299) CO2 TOTAL (test code = 16 mmol/L 23-31 L 5172309437) AGAP (test code = 2-16 0141159672) BUN (test code = 46 mg/dL 7-23 H 8999424897) GLUCOSE (test code = 98 mg/dL 70-110 6372673870) CREATININE (test code = 1.88 mg/dL 0.6-1.25 H 1015588566) TOTAL BILI (test code = 0.7 mg/dL 0.1-1.1 7869010794) CALCIUM (test code = 9.1 mg/dL 8.6-10.6 6573556446) T PROTEIN (test code = 7.3 g/dL 6.3-8.2 9344690535) ALBUMIN (test code = 4.8 g/dL 3.5-5 8225974804) ALK PHOS (test code = 72 U/L 34-122 2325413358) ALTv (test code = 26 U/L 5-50 1742-6) AST(SGOT) (test code = 27 U/L 13-40 8569053677) eGFR (test code = mL/min/1.73m2 4151916569) GILBERTO (test code = GILBERTO) Association of [...] tests). Lab Interpretation Abnormal (test code = 39628-1) [facility]20[facility] 01:54:47 Test Item Value Reference Range Interpretation Comments LIPASE (test code = 9941494333) 263 U/L 0-220 H Lab Interpretation (test code = Abnormal 72063-7) [facility] WITH [id number] 01:43:49 Test Item Value Reference Range Interpretation [...] RDW-SD (test code = 46.0 fL 38.5-51.6 48180-2) RDW-CV (test code = 15.4 % 12.1-15.4 788-0) PLT (test code = See_Comment H [Automated 777-3) message] The sy stem which generated this result transmitted reference range : 150 - 328 10*3/ ?L. The reference r meredith was not used to interpret this result as normal/abnormal . MPV (test code = 9.7 fL 9.8-13 L 33580-5) NRBC/100 WBC (test See_Comment [Automat ed code = 5616735870) message] The system which generated this result transmitted reference range : 0.0 - 10.0 /100 WBCs. The refer ence range was not u sed to interpret th is result as normal/abnormal . NRBC x10^3 (test code See_Comment [Auto mated = 3851880018) message] The s ystem which generated this result transmitted reference range : 10*3/?L. The reference range was not used to interpret this result as normal/abnormal . GRAN MAT (NEUT) % 64.5 % (test code = 770-8) IMM GRAN % (test code 0.40 % = 9574059735) LYMPH % (test code = 24.7 % 736-9) MONO % (test code = 9.2 % 5905-5) EOS % (test code = 0.7 % 713-8) BASO % (test code = 0.5 % 706-2) GRAN MAT x10^3(ANC) 5.20 10*3/uL 1.99-6.95 (test code = 3316490553) IMM GRAN x10^3 (test 0.03 10*3/uL 0-0.06 code = 8482142752) LYMPH x10^3 (test code 1.99 10*3/uL 1.09-3.23 = 731-0) MONO x10^3 (test code 0.74 10*3/uL 0.36-1.02 = 742-7) EOS x10^3 (test code = 0.06 10*3/uL 0.06-0.53 711-2) BASO x10^3 (test code 0.04 10*3/uL 0.01-0.09 = 704-7) Lab Interpretation Abnormal (test code = 33496-2) [facility] WITH [id number] 05:06:34 Test Item Value Reference Range Interpretation Comments WBC (test code = See_Comment [Automated 8790-2) message] The sy stem which generated this result transmitted reference range : 4.20 - 10.70 10*3/?L. The reference range was not used to interpret this result as normal/abnormal . RBC (test code = See_Comment L [Automated 109-8) message] The sy [...] (test code = 56.7 fL 38.5-51.6 H 06027-8) RDW-CV (test code = 17.4 % 12.1-15.4 H 788-0) PLT (test code = See_Comment [Automated 777-3) message] The sy stem which generated this result transmitted reference range : 150 - 328 10*3/ ?L. The reference r meredith was not used to interpret this result as normal/abnormal . MPV (test code = 9.5 fL 9.8-13 L 94284-1) NRBC/100 WBC (test See_Comment [Automat ed code = 1290989694) message] The system which generated this result transmitted reference range : 0.0 - 10.0 /100 WBCs. The refer ence range was not u sed to interpret th is result as normal/abnormal . NRBC x10^3 (test code See_Comment [Auto mated = 1090661181) message] The s ystem which generated this result transmitted reference range : 10*3/?L. The reference range was not used to interpret this result as normal/abnormal . SEG % (test code = 56 % 33-76 46245-6) LYMPH % (test code = 28 % 14-54 55693-2) MONO % (test code = 12 % 0-4 H 20268-8) EOS % (test code = 4 % 0-3 H 14772-3) ANC (test code = 4.72 10*3/uL 1.99-6.95 753-4) PLT ESTIMATE (test Normal Normal code = 9317-9) Lab Interpretation Abnormal (test code = 59259-9) [facility]. METABOLIC PANEL ([id number])2022-04-10 04:19:15 Test Item Value Reference Range Interpretation Comments NA (test code = 137 mmol/L 135-145 4573051486) K (test code = 4.6 mmol/L 3.5-5 6851958732) CL (test code = 108 mmol/L 98-108 3422597008) CO2 TOTAL (test code = 22 mmol/L 23-31 L 4476408612) AGAP (test code = 2-16 6338013815) BUN (test code = 16 mg/dL 7-23 2977000656) GLUCOSE (test code = 96 mg/dL 70-110 7095818433) CREATININE (test code = 1.35 mg/dL 0.6-1.25 H 1897925418) TOTAL BILI (test code = 0.4 mg/dL 0.1-1.9 4091943688) CALCIUM (test code = 9.1 mg/dL 8.6-10.6 0542148263) T PROTEIN (test code = 5.5 g/dL 6.3-8.2 L 9177673966) ALBUMIN (test code = 3.9 g/dL 3.5-5 8766644021) ALK PHOS (test code = 58 U/L 34-122 1375198838) ALTv (test code = 41 U/L 5-50 1742-6) AST(SGOT) (test code = 42 U/L 13-40 H 4457166810) eGFR (test code = mL/min/1.73m2 2157615748) GILBERTO (test code = GILBERTO) Association of [...] tests). Lab Interpretation Abnormal (test code = 20629-4) [facility] 03:33:31 Test Item Value Reference Range Interpretation Comments LIPASE (test code = 1720902172) 90 U/L 0-220 Lab Interpretation (test code = Normal 85988-5) [facility]2022-[facility]-16 12:00:33 Test Item Value Reference Range Interpretation Comments MAGNESIUM (test code = 5777366820) 1.5 mg/dL 1.7-2.4 L Lab Interpretation (test code = Abnormal 04264-4) [facility]OLIC [facility] (NA, K, CL, CO2, GLUCOSE, BUN, CREATININE, CA)2022-04-08 11:12:32 Test Item Value Reference Range Interpretation Comments NA (test code = 136 mmol/L 135-145 5249859902) K (test code = 4.1 mmol/L 3.5-5 7113547286) CL (test code = 108 mmol/L 98-108 4715836458) CO2 TOTAL (test code = 25 mmol/L 23-31 4110061531) AGAP (test code = 2-16 5615492337) BUN (test code = 10 mg/dL 7-23 5670338463) GLUCOSE (test code = 82 mg/dL 70-110 9866158551) CREATININE (test code = 1.10 mg/dL 0.6-1.25 5468202615) CALCIUM (test code = 8.3 mg/dL 8.6-10.6 L 4370226410) eGFR (test code = mL/min/1.73m2 5454496718) GILBERTO (test code = GILBERTO) Association of [...] tests). Lab Interpretation Abnormal (test code = 71723-5) [facility]2022-[facility]-16 11:12:32 Test Item Value Reference Range Interpretation Comments PHOSPHORUS (test code = 3364556503) 2.5 mg/dL 2.5-5 Lab Interpretation (test code = Normal 00666-5) [facility] WITH [id number] 10:47:27 Test Item Value Reference Range Interpretation Comments WBC (test code = See_Comment [Automated 2466-2) message] The sy stem which generated this result transmitted reference range : 4.20 - 10.70 10*3/?L. The reference range was not used to interpret this result as normal/abnormal . RBC (test code = See_Comment L [Automated 381-3) message] The sy stem which generated this [...] (test code = 54.4 fL 38.5-51.6 H 05143-5) RDW-CV (test code = 16.9 % 12.1-15.4 H 788-0) PLT (test code = See_Comment [Automated 777-3) message] The sy stem which generated this result transmitted reference range : 150 - 328 10*3/ ?L. The reference r meredith was not used to interpret this result as normal/abnormal . MPV (test code = 9.7 fL 9.8-13 L 67217-2) NRBC/100 WBC (test See_Comment [Automat ed code = 8360482614) message] The system which generated this result transmitted reference range : 0.0 - 10.0 /100 WBCs. The refer ence range was not u sed to interpret th is result as normal/abnormal . NRBC x10^3 (test code See_Comment [Auto mated = 3382156969) message] The s ystem which generated this result transmitted reference range : 10*3/?L. The reference range was not used to interpret this result as normal/abnormal . GRAN MAT (NEUT) % 54.7 % (test code = 770-8) IMM GRAN % (test code 0.40 % = 7874003399) LYMPH % (test code = 33.8 % 736-9) MONO % (test code = 8.7 % 5905-5) EOS % (test code = 2.0 % 713-8) BASO % (test code = 0.4 % 706-2) GRAN MAT x10^3(ANC) 2.95 10*3/uL 1.99-6.95 (test code = 5710119908) IMM GRAN x10^3 (test 0-0.06 code = 0843873307) LYMPH x10^3 (test code 1.82 10*3/uL 1.09-3.23 = 731-0) MONO x10^3 (test code 0.47 10*3/uL 0.36-1.02 = 742-7) EOS x10^3 (test code = 0.11 10*3/uL 0.06-0.53 711-2) BASO x10^3 (test code 0.01-0.09 = 704-7) Lab Interpretation Abnormal (test code = 85619-6) [facility] METABOLIC PANEL (NA, K, CL, CO2, GLUCOSE, BUN, CREATININE, CA)2022-04-06 09:47:17 Test Item Value Reference Range Interpretation Comments NA (test code = 134 mmol/L 135-145 L 3128544867) K (test code = 4.2 mmol/L 3.5-5 Slight 6800619477) hemolysis CL (test code = 114 mmol/L 98-108 H 8967200347) CO2 TOTAL (test code 16 mmol/L 23-31 L = 6755363115) AGAP (test code = 2-16 2749902297) BUN (test code = 16 mg/dL 7-23 Slight 9488562005) hemolysis GLUCOSE (test code = 79 mg/dL 70-110 3711579294) CREATININE (test code 1.00 mg/dL 0.6-1.25 = 4512817845) CALCIUM (test code = 7.5 mg/dL 8.6-10.6 L 5428460113) eGFR (test code = mL/min/1.73m2 6904611915) GILBERTO (test code = GILBERTO) Association of [...] tests). Lab Interpretation Abnormal (test code = 02176-6) [facility]2022-[facility]-14 09:47:17 Test Item Value Reference Range Interpretation Comments MAGNESIUM (test code = 8222638792) 1.2 mg/dL 1.7-2.4 L Lab Interpretation (test code = Abnormal 63500-3) [facility] CampusL[facility] Acid Whole [id number] 09:16:49 Test Item Value Reference Range Interpretation Comments LACTIC ACID (test code = 1.35 mmol/L 0.5-2.2 8991782268) Lab Interpretation (test code = Normal 44647-3) [facility] WITH [id number] 09:13:32 Test Item Value Reference Range Interpretation [...] (test code = 52.4 fL 38.5-51.6 H 79720-1) RDW-CV (test code = 16.6 % 12.1-15.4 H 788-0) PLT (test code = See_Comment [Automated 777-3) message] The sy stem which generated this result transmitted reference range : 150 - 328 10*3/ ?L. The reference r meredith was not used to interpret this result as normal/abnormal . MPV (test code = 10.0 fL 9.8-13 24374-1) NRBC/100 WBC (test See_Comment [Automat ed code = 4091837757) message] The system which generated this result transmitted reference range : 0.0 - 10.0 /100 WBCs. The refer ence range was not u sed to interpret th is result as normal/abnormal . NRBC x10^3 (test code See_Comment [Auto mated = 8954012892) message] The s ystem which generated this result transmitted reference range : 10*3/?L. The reference range was not used to interpret this result as normal/abnormal . GRAN MAT (NEUT) % 48.6 % (test code = 770-8) IMM GRAN % (test code 0.20 % = 5853736545) LYMPH % (test code = 39.4 % 736-9) MONO % (test code = 9.3 % 5905-5) EOS % (test code = 1.9 % 713-8) BASO % (test code = 0.6 % 706-2) GRAN MAT x10^3(ANC) 2.36 10*3/uL 1.99-6.95 (test code = 5935732667) IMM GRAN x10^3 (test 0-0.06 code = 6901471623) LYMPH x10^3 (test code 1.91 10*3/uL 1.09-3.23 = 731-0) MONO x10^3 (test code 0.45 10*3/uL 0.36-1.02 = 742-7) EOS x10^3 (test code = 0.09 10*3/uL 0.06-0.53 711-2) BASO x10^3 (test code 0.03 10*3/uL 0.01-0.09 = 704-7) Lab Interpretation Abnormal (test code = 74841-2) [facility]20[facility]-12 07:34:48 Test Item Value Reference Range Interpretation Comments MAGNESIUM (test code = 9873842284) 1.8 mg/dL 1.7-2.4 Lab Interpretation (test code = Normal 91231-6) [facility]AC[facility] VENOUS BLOOD [id number] 18:40:18 Test Item Value Reference Range Interpretation Comments PH (test code = 7.32-7.42 L 6073226072) PCO2 PANKAJ (test code = See_Comment [Auto mated message] 0222654082) The system [employer] generated this result transmitted ref erence range: 41 - 51 mmHg. The reference r meredith was not used to interpret this result as normal/abnor mal. PO2 PANKAJ (test code = See_Comment L [Autom ated message] 0545234782) The system [employer] generated this result transmitted ref erence range: 25 - 40 mmHg. The reference r meredith was not used to interpret this result as normal/abnor mal. HCO3 PANKAJ (test code = See_Comment L [Auto mated message] 9337180072) The system [employer] generated this result transmitted ref erence range: 24 - 28 mEq/L. The reference r meredith was not used to interpret this result as normal/abnor mal. AC VBE(BEAKER) (test mEq/L code = 4657918774) Lab Interpretation (test Abnormal code = 14088-2) [facility] (NA, K, CL, CO2, GLUCOSE, BUN, CREATININE, CA)2022-04-03 18:33:26 Test Item Value Reference Range Interpretation Comments NA (test code = 129 mmol/L 135-145 L 1703885199) K (test code = 3.3 mmol/L 3.5-5 L 0224295087) CL (test code = 100 mmol/L 98-108 0136669759) CO2 TOTAL (test code = 19 mmol/L 23-31 L 3645666521) AGAP (test code = 2-16 3301765337) BUN (test code = 49 mg/dL 7-23 H 3554915551) GLUCOSE (test code = 75 mg/dL 70-110 1674644252) CREATININE (test code = 2.55 mg/dL 0.6-1.25 H 1142585574) CALCIUM (test code = 8.6 mg/dL 8.6-10.6 2450449144) eGFR (test code = mL/min/1.73m2 6477008687) GILBERTO (test code = GILBERTO) Association of [...] tests). Lab Interpretation Abnormal (test code = 46756-9) [facility] [id number] 15:45:31 Test Item Value Reference Range Interpretation Comments OSMOLALITY (test code = See_Comment [Au tomated message] 2692-2) The system whic h generated this result transmitted ref erence range: 278 - 30 5 mOsm/kg. The re ference range was not u sed to interpret this result as normal/abnor mal. Lab Interpretation (test Normal code = 18917-7) [facility] with [id number] 11:27:34 Test Item Value Reference Range Interpretation [...] RDW-SD (test code = 48.7 fL 38.5-51.6 27162-7) RDW-CV (test code = 15.9 % 12.1-15.4 H 788-0) PLT (test code = See_Comment [Automated 777-3) message] The sy stem which generated this result transmitted reference range : 150 - 328 10*3/ ?L. The reference r meredith was not used to interpret this result as normal/abnormal . MPV (test code = 9.4 fL 9.8-13 L 87613-3) NRBC/100 WBC (test See_Comment [Automat ed code = 2215139146) message] The system which generated this result transmitted reference range : 0.0 - 10.0 /100 WBCs. The refer ence range was not u sed to interpret th is result as normal/abnormal . NRBC x10^3 (test code See_Comment [Auto mated = 5781626809) message] The s ystem which generated this result transmitted reference range : 10*3/?L. The reference range was not used to interpret this result as normal/abnormal . GRAN MAT (NEUT) % 56.0 % (test code = 770-8) IMM GRAN % (test code 0.50 % = 2363386949) LYMPH % (test code = 33.2 % 736-9) MONO % (test code = 8.6 % 5905-5) EOS % (test code = 1.1 % 713-8) BASO % (test code = 0.6 % 706-2) GRAN MAT x10^3(ANC) 3.64 10*3/uL 1.99-6.95 (test code = 9539368112) IMM GRAN x10^3 (test 0.03 10*3/uL 0-0.06 code = 5081308936) LYMPH x10^3 (test code 2.16 10*3/uL 1.09-3.23 = 731-0) MONO x10^3 (test code 0.56 10*3/uL 0.36-1.02 = 742-7) EOS x10^3 (test code = 0.07 10*3/uL 0.06-0.53 711-2) BASO x10^3 (test code 0.04 10*3/uL 0.01-0.09 = 704-7) Lab Interpretation Abnormal (test code = 32154-1) [facility] Metabolic Panel (NA, K, CL, CO2, GLUCOSE, BUN, CREATININE, CA)2022-04-03 10:08:59 Test Item Value Reference Range Interpretation Comments NA (test code = 125 mmol/L 135-145 L 8388299540) K (test code = 3.7 mmol/L 3.5-5 6902529800) CL (test code = 96 mmol/L 98-108 L 0836020932) CO2 TOTAL (test code = 15 mmol/L 23-31 L 8793006395) AGAP (test code = 2-16 3928091413) BUN (test code = 50 mg/dL 7-23 H 4750599930) GLUCOSE (test code = 86 mg/dL 70-110 4270402779) CREATININE (test code = 3.86 mg/dL 0.6-1.25 H 7676876496) CALCIUM (test code = 8.6 mg/dL 8.6-10.6 9704891859) eGFR (test code = mL/min/1.73m2 6224406253) GILBERTO (test code = GILBERTO) Association of [...] tests). Lab Interpretation Abnormal (test code = 85860-8) [facility] Whole [id number] 04:09:02 Test Item Value Reference Range Interpretation Comments LACTIC ACID (test code = 1.54 mmol/L 0.5-2.2 8412477324) Lab Interpretation (test code = Normal 14305-4) [facility] Whole [id number] 00:25:08 Test Item Value Reference Range Interpretation Comments LACTIC ACID (test code = 2.50 mmol/L 0.5-2.2 H 7748337898) Lab Interpretation (test code = Abnormal 79081-2) [facility] WITH [id number] 20:19:45 Test Item Value Reference Range Interpretation [...] RDW-SD (test code = 49.8 fL 38.5-51.6 44457-1) RDW-CV (test code = 16.4 % 12.1-15.4 H 788-0) PLT (test code = See_Comment H [Automated 777-3) message] The system which generated this result transmit dain reference range : 150 - 328 10*3/ ?L. The reference range was not u sed to interpret th is result as normal/abnormal . MPV (test code = 10.7 fL 9.8-13 17850-2) NRBC/100 WBC (test See_Comment [Automat ed code = 8870024281) message] The system which generated this result transmit dain reference range : 0.0 - 10.0 /100 WBCs. The reference range was not used to interpret this result as normal/abnormal . NRBC x10^3 (test code See_Comment [Auto mated = 7194806328) message] The system which generated this result transmit dain reference range : 10*3/?L. The reference range was not used to interpret this result as normal/abnormal . GRAN MAT (NEUT) % 73.4 % (test code = 770-8) IMM GRAN % (test code 0.60 % = 8643832134) LYMPH % (test code = 17.2 % 736-9) MONO % (test code = 8.2 % 5905-5) EOS % (test code = 0.2 % 713-8) BASO % (test code = 0.4 % 706-2) GRAN MAT x10^3(ANC) 10.17 10*3/uL 1.99-6.95 H (test code = 5691383501) IMM GRAN x10^3 (test 0.09 10*3/uL 0-0.06 H code = 1726488080) LYMPH x10^3 (test code 2.38 10*3/uL 1.09-3.23 = 731-0) MONO x10^3 (test code 1.13 10*3/uL 0.36-1.02 H = 742-7) EOS x10^3 (test code = 0.03 10*3/uL 0.06-0.53 L 711-2) BASO x10^3 (test code 0.05 10*3/uL 0.01-0.09 = 704-7) Lab Interpretation Abnormal (test code = 49977-3) [facility] W/AUTO [id number] 00:06:00 Test Item Value Reference Range Interpretation [...] = MX#) 0.5 k/mm3 0.1-0.8 N TROPONIN-I [id number] 15:07:00 Test Item Value Reference Range Interpretation Comments TROPONIN-I RAPID 0.00 ng/mL 0.00-0.08 N Performed b y certified (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 BASIC METABOLIC [id number] 14:56:00 Test Item Value Reference Range Interpretation [...] MG/DL 70-110 N - XR CHEST 1 [id number] 00:00:00 [facility] : 1970 Sex: M FAX: Sabi Urias MD [phone] [place]: [place] [address]: REG Name: HOANG MCNEILL FSED : 1970 Age/S: 52/M [address] [facility] Unit #: [id number] Loc: [place] [address] Phys: Sabi Urias MD Acct: [id number] Dis Date: Status: REG ER PHONE #: Exam Date: 03/29/2022 150 FAX #: Reason: Weakness EXAMS: CPT CODE: [id number] XR CHEST 1 V 18565 PROCEDURE INFORMATION: Exam: XR Chest Exam date [...] By: [email or web address] Orig Print D/T: S: 03/29/2022 (1821) PAGE 1 Signed ReportHEPATIC FUNCTION [id number] 06:45:03 Test Item Value Reference Range Interpretation [...] (test code = 13 U/L 6-55 347) Culture Room Worker ID - ERWIN WBASIC METABOLIC [id number] 06:45:02 Test Item Value Reference Range Interpretation [...] S NOT APPLICABLE FOR DIALYSIS PATIEN TS. Culture Room Worker ID - ERWIN WCBC W/PLT COUNT & AUTO [id number] 06:26:54 Test Item Value Reference Range Interpretation [...] (BEAKER) (test code = 2801) U/S, RENAL, [id number] 19:23:00Reason for exam:->acute kidney injury [facility] CENTERName: DORA MCNEILL : 1970 Sex: MFINAL [...] Signed: Amberly Praterort Verified Date/Time: 03/06/2022 19:23:41 -CoV2/RT-PCR (Asymptomatic ONLY)2022-03-06 19:17:07 Test Item Value Reference Interpretation Comments Range SARS-COV2/RT-PCR Negative Negative The SARS-Co V-2 (test code = target nucleic 66847-7) acids are not detected in thi s [...] revoked sooner. Fact Sheet for Healthcare Providers: https://www.[employer]/Documents/Xp ert%20Xpress%20SAR S%20CoV-2/Fact%20S heets/302-3802%20S ARS-COV-2%20HEALTH CARE%20PROVIDERS%2 0FACT%20SHEET.pdf Fact Sheet for Healthcare Patients: https://www.[employer]/Documents/Xp ert%20Xpress%20SAR S%20CoV-2/Fact%20S heets/302-3801%20S ARS-COV-2%20PATIEN T%20FACT%20SHEET.p df Lab Interpretation Normal (test code = 78303-2) [facility] 19:17:07 Test Item Value Reference Interpretation Comments Range SARS-COV2/RT-PCR Negative Negative The SARS-Co V-2 (test code = target nucleic 94593-8) acids are not detected in thi s [...] revoked sooner. Fact Sheet for Healthcare Providers: https://www.[employer]/Documents/Xp ert%20Xpress%20SAR S%20CoV-2/Fact%20S heets/302-3802%20S ARS-COV-2%20HEALTH CARE%20PROVIDERS%2 0FACT%20SHEET.pdf Fact Sheet for Healthcare Patients: https://www.[employer]/Documents/Xp ert%20Xpress%20SAR S%20CoV-2/Fact%20S heets/302-3801%20S ARS-COV-2%20PATIEN T%20FACT%20SHEET.p df Lab Interpretation Normal (test code = 63280-9) [facility]2022-03-06 19:17:07 Test Item Value Reference Interpretation Comments Range SARS-COV2/RT-PCR Negative Negative The SARS-Co V-2 (test code = target nucleic 78578-7) acids are not detected in thi s [...] revoked sooner. Fact Sheet for Healthcare Providers: https://www.[employer]/Documents/Xp ert%20Xpress%20SAR S%20CoV-2/Fact%20S heets/302-3802%20S ARS-COV-2%20HEALTH CARE%20PROVIDERS%2 0FACT%20SHEET.pdf Fact Sheet for Healthcare Patients: https://www.[employer]/Documents/Xp ert%20Xpress%20SAR S%20CoV-2/Fact%20S heets/302-3801%20S ARS-COV-2%20PATIEN T%20FACT%20SHEET.p df Lab Interpretation Normal (test code = 82014-7) [facility]2022-[facility]-06 19:17:07 Test Item Value Reference Interpretation Comments Range SARS-COV2/RT-PCR Negative Negative The SARS-Co V-2 (test code = target nucleic 49320-4) acids are not detected in thi s [...] revoked sooner. Fact Sheet for Healthcare Providers: https://www.[employer]/Documents/Xp ert%20Xpress%20SAR S%20CoV-2/Fact%20S heets/302-3802%20S ARS-COV-2%20HEALTH CARE%20PROVIDERS%2 0FACT%20SHEET.pdf Fact Sheet for Healthcare Patients: https://www.[employer]/Documents/Xp ert%20Xpress%20SAR S%20CoV-2/Fact%20S heets/302-3801%20S ARS-COV-2%20PATIEN T%20FACT%20SHEET.p df Lab Interpretation Normal (test code = 03021-1) [facility]2022-03-06 19:17:07 Test Item Value Reference Interpretation Comments Range SARS-COV2/RT-PCR Negative Negative The SARS-Co V-2 (test code = target nucleic 00987-0) acids are not detected in thi s [...] revoked sooner. Fact Sheet for Healthcare Providers: https://www.[employer]/Documents/Xp ert%20Xpress%20SAR S%20CoV-2/Fact%20S heets/302-3802%20S ARS-COV-2%20HEALTH CARE%20PROVIDERS%2 0FACT%20SHEET.pdf Fact Sheet for Healthcare Patients: https://www.[employer]/Documents/Xp ert%20Xpress%20SAR S%20CoV-2/Fact%20S heets/302-3801%20S ARS-COV-2%20PATIEN T%20FACT%20SHEET.p df Lab Interpretation Normal (test code = 56873-8) [facility]2022-03-06 19:17:07 Test Item Value Reference Interpretation Comments Range SARS-COV2/RT-PCR Negative Negative The SARS-Co V-2 (test code = target nucleic 51318-0) acids are not detected in thi s [...] revoked sooner. Fact Sheet for Healthcare Providers: https://www.[employer]/Documents/Xp ert%20Xpress%20SAR S%20CoV-2/Fact%20S heets/302-3802%20S ARS-COV-2%20HEALTH CARE%20PROVIDERS%2 0FACT%20SHEET.pdf Fact Sheet for Healthcare Patients: https://wwwProxi[employer]ision [employer]/Documents/Xp ert%20Xpress%20SAR S%20CoV-2/Fact%20S heets/302-3801%20S ARS-COV-2%20PATIEN T%20FACT%20SHEET.p df Lab Interpretation Normal (test code = 60721-6) [facility]2022-03-06 19:17:07 Test Item Value Reference Interpretation Comments Range SARS-COV2/RT-PCR Negative Negative The SARS-Co V-2 (test code = target nucleic 86132-9) acids are not detected in thi s [...] revoked sooner. Fact Sheet for Healthcare Providers: https://www.[employer]/Documents/Xp ert%20Xpress%20SAR S%20CoV-2/Fact%20S heets/302-3802%20S ARS-COV-2%20HEALTH CARE%20PROVIDERS%2 0FACT%20SHEET.pdf Fact Sheet for Healthcare Patients: https://wwwProxiVision GmbH/Documents/Xp ert%20Xpress%20SAR S%20CoV-2/Fact%20S heets/302-3801%20S ARS-COV-2%20PATIEN T%20FACT%20SHEET.p df Lab Interpretation Normal (test code = 46718-7) [facility]2022-03-06 19:17:07 Test Item Value Reference Interpretation Comments Range SARS-COV2/RT-PCR Negative Negative The SARS-Co V-2 (test code = target nucleic 82976-1) acids are not detected in thi s [...] revoked sooner. Fact Sheet for Healthcare Providers: https://www.[employer]/Documents/Xp ert%20Xpress%20SAR S%20CoV-2/Fact%20S heets/302-3802%20S ARS-COV-2%20HEALTH CARE%20PROVIDERS%2 0FACT%20SHEET.pdf Fact Sheet for Healthcare Patients: https://www.[employer]/Documents/Xp ert%20Xpress%20SAR S%20CoV-2/Fact%20S heets/302-3801%20S ARS-COV-2%20PATIEN T%20FACT%20SHEET.p df Lab Interpretation Normal (test code = 68268-0) [facility]2022-03-06 19:17:07 Test Item Value Reference Interpretation Comments Range SARS-COV2/RT-PCR Negative Negative The SARS-Co V-2 (test code = target nucleic 88887-5) acids are not detected in thi s [...] revoked sooner. Fact Sheet for Healthcare Providers: https://www.[employer]/Documents/Xp ert%20Xpress%20SAR S%20CoV-2/Fact%20S heets/302-3802%20S ARS-COV-2%20HEALTH CARE%20PROVIDERS%2 0FACT%20SHEET.pdf Fact Sheet for Healthcare Patients: https://www.[employer]/Documents/Xp ert%20Xpress%20SAR S%20CoV-2/Fact%20S heets/302-3801%20S ARS-COV-2%20PATIEN T%20FACT%20SHEET.p df Lab Interpretation Normal (test code = 51604-2) [facility]2022-03-06 19:17:07 Test Item Value Reference Interpretation Comments Range SARS-COV2/RT-PCR Negative Negative The SARS-Co V-2 (test code = target nucleic 54188-2) acids are not detected in thi s [...] revoked sooner. Fact Sheet for Healthcare Providers: https://www.[employer]/Documents/Xp ert%20Xpress%20SAR S%20CoV-2/Fact%20S heets/302-3802%20S ARS-COV-2%20HEALTH CARE%20PROVIDERS%2 0FACT%20SHEET.pdf Fact Sheet for Healthcare Patients: https://www.[employer]/Documents/Xp ert%20Xpress%20SAR S%20CoV-2/Fact%20S heets/302-3801%20S ARS-COV-2%20PATIEN T%20FACT%20SHEET.p df Lab Interpretation Normal (test code = 74018-0) [facility]2022-03-06 19:17:07 Test Item Value Reference Interpretation Comments Range SARS-COV2/RT-PCR Negative Negative The SARS-Co V-2 (test code = target nucleic 87733-3) acids are not detected in thi s [...] SARS-CoV-2 [facility] s suspected of [facility]-19 [...] revoked sooner. Fact Sheet for Healthcare Providers: https://www.[employer]/Documents/Xp ert%20Xpress%20SAR S%20CoV-2/Fact%20S heets/302-3802%20S ARS-COV-2%20HEALTH CARE%20PROVIDERS%2 0FACT%20SHEET.pdf Fact Sheet for Healthcare Patients: https://www.[employer]/Documents/Xp ert%20Xpress%20SAR S%20CoV-2/Fact%20S heets/302-3801%20S ARS-COV-2%20PATIEN T%20FACT%20SHEET.p df Lab Interpretation Normal (test code = 97550-9) [facility]2022-03-06 19:17:07 Test Item Value Reference Interpretation Comments Range SARS-COV2/RT-PCR Negative Negative The SARS-Co V-2 (test code = target nucleic 52215-7) acids are not detected in thi s [...] revoked sooner. Fact Sheet for Healthcare Providers: https://www.[employer]/Documents/Xp ert%20Xpress%20SAR S%20CoV-2/Fact%20S heets/302-3802%20S ARS-COV-2%20HEALTH CARE%20PROVIDERS%2 0FACT%20SHEET.pdf Fact Sheet for Healthcare Patients: https://www.[employer]/Documents/Xp ert%20Xpress%20SAR S%20CoV-2/Fact%20S heets/302-3801%20S ARS-COV-2%20PATIEN T%20FACT%20SHEET.p df Lab Interpretation Normal (test code = 28264-2) [facility]2022-03-06 19:17:07 Test Item Value Reference Interpretation Comments Range SARS-COV2/RT-PCR Negative Negative The SARS-Co V-2 (test code = target nucleic 38475-9) acids are not detected in thi s [...] revoked sooner. Fact Sheet for Healthcare Providers: https://www.[employer]/Documents/Xp ert%20Xpress%20SAR S%20CoV-2/Fact%20S heets/302-3802%20S ARS-COV-2%20HEALTH CARE%20PROVIDERS%2 0FACT%20SHEET.pdf Fact Sheet for Healthcare Patients: https://www.[employer]/Documents/Xp ert%20Xpress%20SAR S%20CoV-2/Fact%20S heets/302-3801%20S ARS-COV-2%20PATIEN T%20FACT%20SHEET.p df Lab Interpretation Normal (test code = 08466-1) [facility]2022-03-06 19:17:07 Test Item Value Reference Interpretation Comments Range SARS-COV2/RT-PCR Negative Negative The SARS-Co V-2 (test code = target nucleic 36138-0) acids are not detected in thi s [...] (test code = This test has been GILBEROT) authorized by FDA under an EUA for [...] revoked sooner. Fact Sheet for Healthcare Providers: https://www.[employer]/Documents/Xp ert%20Xpress%20SAR S%20CoV-2/Fact%20S heets/3023802%20S ARS-COV-2%20HEALTH CARE%20PROVIDERS%2 0FACT%20SHEET.pdf Fact Sheet for Healthcare Patients: https://www.[employer]/Documents/Xp ert%20Xpress%20SAR S%20CoV-2/Fact%20S heets/302-3801%20S ARS-COV-2%20PATIEN T%20FACT%20SHEET.p df Lab Interpretation Normal (test code = 73367-7) [facility]2022-03-06 19:17:07 Test Item Value Reference Interpretation Comments Range SARS-COV2/RT-PCR Negative Negative The SARS-Co V-2 (test code = target nucleic 72631-4) acids are not detected in thi s [...] revoked sooner. Fact Sheet for Healthcare Providers: https://www.[employer]/Documents/Xp ert%20Xpress%20SAR S%20CoV-2/Fact%20S heets/302-3802%20S ARS-COV-2%20HEALTH CARE%20PROVIDERS%2 0FACT%20SHEET.pdf Fact Sheet for Healthcare Patients: https://www.[employer]/Documents/Xp ert%20Xpress%20SAR S%20CoV-2/Fact%20S heets/302-3801%20S ARS-COV-2%20PATIEN T%20FACT%20SHEET.p df Lab Interpretation Normal (test code = 03867-2) [facility]2022-03-06 19:17:07 Test Item Value Reference Interpretation Comments Range SARS-COV2/RT-PCR Negative Negative The SARS-Co V-2 (test code = target nucleic 85712-8) acids are not detected in thi s [...] revoked sooner. Fact Sheet for Healthcare Providers: https://www.[employer]/Documents/Xp ert%20Xpress%20SAR S%20CoV-2/Fact%20S heets/3023802%20S ARS-COV-2%20HEALTH CARE%20PROVIDERS%2 0FACT%20SHEET.pdf Fact Sheet for Healthcare Patients: https://www.[employer]/Documents/Xp ert%20Xpress%20SAR S%20CoV-2/Fact%20S heets/302-3801%20S ARS-COV-2%20PATIEN T%20FACT%20SHEET.p df Lab Interpretation Normal (test code = 08581-7) [facility]2022-03-06 19:17:07 Test Item Value Reference Interpretation Comments Range SARS-COV2/RT-PCR Negative Negative The SARS-Co V-2 (test code = target nucleic 98048-7) acids are not detected in thi s [...] revoked sooner. Fact Sheet for Healthcare Providers: https://www.[employer]/Documents/Xp ert%20Xpress%20SAR S%20CoV-2/Fact%20S heets/302-3802%20S ARS-COV-2%20HEALTH CARE%20PROVIDERS%2 0FACT%20SHEET.pdf Fact Sheet for Healthcare Patients: https://www.[employer]/Documents/Xp ert%20Xpress%20SAR S%20CoV-2/Fact%20S heets/302-3801%20S ARS-COV-2%20PATIEN T%20FACT%20SHEET.p df Lab Interpretation Normal (test code = 73615-3) [facility]2022-03-06 19:17:07 Test Item Value Reference Interpretation Comments Range SARS-COV2/RT-PCR Negative Negative The SARS-Co V-2 (test code = target nucleic 29876-4) acids are not detected in thi s [...] revoked sooner. Fact Sheet for Healthcare Providers: https://www.[employer]/Documents/Xp ert%20Xpress%20SAR S%20CoV-2/Fact%20S heets/302-3802%20S ARS-COV-2%20HEALTH CARE%20PROVIDERS%2 0FACT%20SHEET.pdf Fact Sheet for Healthcare Patients: https://www.[employer]/Documents/Xp ert%20Xpress%20SAR S%20CoV-2/Fact%20S heets/302-3801%20S ARS-COV-2%20PATIEN T%20FACT%20SHEET.p df Lab Interpretation Normal (test code = 31988-8) [facility]2022-03-06 19:17:07 Test Item Value Reference Interpretation Comments Range SARS-COV2/RT-PCR Negative Negative The SARS-Co V-2 (test code = target nucleic 02772-0) acids are not detected in thi s [...] revoked sooner. Fact Sheet for Healthcare Providers: https://www.[employer]/Documents/Xp ert%20Xpress%20SAR S%20CoV-2/Fact%20S heets/302-3802%20S ARS-COV-2%20HEALTH CARE%20PROVIDERS%2 0FACT%20SHEET.pdf Fact Sheet for Healthcare Patients: https://www.[employer]/Documents/Xp ert%20Xpress%20SAR S%20CoV-2/Fact%20S heets/302-3801%20S ARS-COV-2%20PATIEN T%20FACT%20SHEET.p df Lab Interpretation Normal (test code = 45827-7) [facility]2022-03-06 19:17:07 Test Item Value Reference Interpretation Comments Range SARS-COV2/RT-PCR Negative Negative The SARS-Co V-2 (test code = target nucleic 53977-3) acids are not detected in thi s [...] revoked sooner. Fact Sheet for Healthcare Providers: https://www.[employer]/Documents/Xp ert%20Xpress%20SAR S%20CoV-2/Fact%20S heets/302-3802%20S ARS-COV-2%20HEALTH CARE%20PROVIDERS%2 0FACT%20SHEET.pdf Fact Sheet for Healthcare Patients: https://www.[employer]/Documents/Xp ert%20Xpress%20SAR S%20CoV-2/Fact%20S heets/302-3801%20S ARS-COV-2%20PATIEN T%20FACT%20SHEET.p df Lab Interpretation Normal (test code = 84727-1) [facility]2022-03-06 19:17:07 Test Item Value Reference Interpretation Comments Range SARS-COV2/RT-PCR Negative Negative The SARS-Co V-2 (test code = target nucleic 05643-3) acids are not detected in thi s [...] revoked sooner. Fact Sheet for Healthcare Providers: https://www.[employer]/Documents/Xp ert%20Xpress%20SAR S%20CoV-2/Fact%20S heets/302-3802%20S ARS-COV-2%20HEALTH CARE%20PROVIDERS%2 0FACT%20SHEET.pdf Fact Sheet for Healthcare Patients: https://www.[employer]/Documents/Xp ert%20Xpress%20SAR S%20CoV-2/Fact%20S heets/302-3801%20S ARS-COV-2%20PATIEN T%20FACT%20SHEET.p df Lab Interpretation Normal (test code = 80195-1) [facility]2022-03-06 19:17:07 Test Item Value Reference Interpretation Comments Range SARS-COV2/RT-PCR Negative Negative The SARS-Co V-2 (test code = target nucleic 91683-2) acids are not detected in thi s [...] revoked sooner. Fact Sheet for Healthcare Providers: https://www.[employer]/Documents/Xp ert%20Xpress%20SAR S%20CoV-2/Fact%20S heets/302-3802%20S ARS-COV-2%20HEALTH CARE%20PROVIDERS%2 0FACT%20SHEET.pdf Fact Sheet for Healthcare Patients: https://www.[employer]/Documents/Xp ert%20Xpress%20SAR S%20CoV-2/Fact%20S heets/302-3801%20S ARS-COV-2%20PATIEN T%20FACT%20SHEET.p df Lab Interpretation Normal (test code = 63151-0) [facility]2022-03-06 19:17:07 Test Item Value Reference Interpretation Comments Range SARS-COV2/RT-PCR Negative Negative The SARS-Co V-2 (test code = target nucleic 15393-8) acids are not detected in thi s [...] revoked sooner. Fact Sheet for Healthcare Providers: https://www.[employer]/Documents/Xp ert%20Xpress%20SAR S%20CoV-2/Fact%20S heets/302-3802%20S ARS-COV-2%20HEALTH CARE%20PROVIDERS%2 0FACT%20SHEET.pdf Fact Sheet for Healthcare Patients: https://wwwProxi[employer]/Documents/Xp ert%20Xpress%20SAR S%20CoV-2/Fact%20S heets/302-3801%20S ARS-COV-2%20PATIEN T%20FACT%20SHEET.p df Lab Interpretation Normal (test code = 83610-7) [facility]2022-03-06 19:17:07 Test Item Value Reference Interpretation Comments Range SARS-COV2/RT-PCR Negative Negative The SARS-Co V-2 (test code = target nucleic 19744-9) acids are not detected in thi s [...] revoked sooner. Fact Sheet for Healthcare Providers: https://www.[employer]/Documents/Xp ert%20Xpress%20SAR S%20CoV-2/Fact%20S heets/302-3802%20S ARS-COV-2%20HEALTH CARE%20PROVIDERS%2 0FACT%20SHEET.pdf Fact Sheet for Healthcare Patients: https://wwwProxi[employer]/Documents/Xp ert%20Xpress%20SAR S%20CoV-2/Fact%20S heets/302-3801%20S ARS-COV-2%20PATIEN T%20FACT%20SHEET.p df Lab Interpretation Normal (test code = 55186-8) [facility]2022-03-06 19:17:07 Test Item Value Reference Interpretation Comments Range SARS-COV2/RT-PCR Negative Negative The SARS-Co V-2 (test code = target nucleic 12123-7) acids are not detected in thi s [...] revoked sooner. Fact Sheet for Healthcare Providers: https://www.[employer]/Documents/Xp ert%20Xpress%20SAR S%20CoV-2/Fact%20S heets/302-3802%20S ARS-COV-2%20HEALTH CARE%20PROVIDERS%2 0FACT%20SHEET.pdf Fact Sheet for Healthcare Patients: https://www.[employer]/Documents/Xp ert%20Xpress%20SAR S%20CoV-2/Fact%20S heets/302-3801%20S ARS-COV-2%20PATIEN T%20FACT%20SHEET.p df Lab Interpretation Normal (test code = 60852-1) [facility]2022-03-06 19:17:07 Test Item Value Reference Interpretation Comments Range SARS-COV2/RT-PCR Negative Negative The SARS-Co V-2 (test code = target nucleic 33188-4) acids are not detected in thi s [...] revoked sooner. Fact Sheet for Healthcare Providers: https://www.[employer]/Documents/Xp ert%20Xpress%20SAR S%20CoV-2/Fact%20S heets/302-3802%20S ARS-COV-2%20HEALTH CARE%20PROVIDERS%2 0FACT%20SHEET.pdf Fact Sheet for Healthcare Patients: https://www.[employer]/Documents/Xp ert%20Xpress%20SAR S%20CoV-2/Fact%20S heets/302-3801%20S ARS-COV-2%20PATIEN T%20FACT%20SHEET.p df Lab Interpretation Normal (test code = 30478-7) [facility])2022-03-06 19:17:07 Test Item Value Reference Range Interpretation Comments SARS-COV2/RT-PCR Negative Negative The SARS-Co V-2 target (test code = nucleic acids a re not 9945385) detected in thi s specimen. Negative result [...] revoked sooner. Fact Sheet for Healthcare Providers: https://[employer]/Documents/Xpert%20Xpress%20SARS%20CoV-2/Fact%20Sheets/302-3802%61VEMW-USQ-7%20 HEALTHCARE%20PROVIDERS%20FACT%20SHEET.pdf Fact Sheet for Healthcare Patients: https://www.[employer]/Documents/Xpert%20Xp ress%20SARS%20CoV-2/Fact%20Sheets/302-3801%14VPUH-TFY-4%20PATIENT%20FACT%20SHEET .pdfCREATINE KINASE (CK)2022-03-06 16:19:14 Test Item Value Reference Range Interpretation Comments CREATINE KINASE TOTAL (BEAKER) (test 141 U/L 29-200 code = 380) Culture Room Worker ID - BST4, [id number] 15:13:16 Test Item Value Reference Range Interpretation Comments FREE T4 (BEAKER) (test code = 655) 0.95 ng/dL 0.70-1.48 Culture Room Worker ID - BSTSH/FREE T4 IF [id number] 15:13:16 Test Item Value Reference Range Interpretation Comments THYROID STIMULATING HORMONE 2.060 uIU/mL 0.350-4.940 (BEAKER) (test code = 772) Culture Room Worker ID - BSB-TYPE NATRIURETIC FACTOR (BNP)2022-03-06 14:26:30 Test Item Value Reference Range Interpretation Comments B-TYPE NATRIURETIC PEPTIDE (BEAKER) < pg/mL 0-100 (test code = 700) Culture Room Worker ID - JSHIGH SENSITIVITY TROPONIN [id number] 14:14:54 Test Item Value Reference Range Interpretation Comments HIGH SENSITIVITY < pg/ml See_Comment [Automated message] TROPONIN I (test code = The system which 9245356) generated this result transmitted ref erence range: <=35. Th e reference range was not used to interpr et this result as normal/abnormal . Culture Room Worker ID - JSThe GROUND SERVICE EQUIPMENT MECHANIC STAT High Sensitivity Troponin-I results should be used in conjunctionwith other diagnostic information such as ECG, clinical observations and information, and patient symptoms to aid in the diagnosis of LA.RAD, CHEST, 1 VIEW, NON [id number] 14:10:00Reason for exam:- >NEUROLOGIC PROBLEMShould this be performed at the bedside?->Yes [facility] : 1970 Sex: MFINAL REPORT Chest, 1 view, 03/06/2022 2:03 PM. History: Neurologic problem. Comparison: 03/28/2019. Discussion: The cardiomediastinal silhouette and pulmonary vasculature are within normal limits for a portable exam. The lungs are clear without evidence of consolidation or effusion. The soft tissues and osseous structures are intact. IMPRESSION: No acute cardiopulmonary abnormality. Signed: [facility] Verified Date/Time: 03/06/2022 14:10:44 REHENSIVE METABOLIC [id number] 14:08:22 Test Item Value Reference Range Interpretation [...] S NOT APPLICABLE FOR DIALYSIS PATIEN TS. Culture Room Worker ID - [id number] 14:07:49 Test Item Value Reference Range Interpretation Comments MAGNESIUM (BEAKER) (test code = 2.0 mg/dL 1.6-2.6 627) Culture Room Worker ID - [id number] 14:07:49 Test Item Value Reference Range Interpretation Comments PHOSPHORUS (BEAKER) (test code = 5.6 mg/dL 2.3-4.7 H 604) Culture Room Worker ID - JSLACTIC ACID, [id number] 13:51:04 Test Item Value Reference Range Interpretation Comments LACTATE BLOOD VENOUS 1.32 mmol/L 0.50-2.20 Specime n slightly (2) (BEAKER) (test hemolyzed code = 9192) Culture Room Worker ID - JSCBC W/PLT COUNT & AUTO [id number] 13:47:24 Test Item Value Reference Range Interpretation [...] (BEAKER) (test code = 2801) Coronavirus, CoVID-19, [id number] 01:07:20 Test Item Value Reference Range Interpretation Comments COVID-19 (SARS-COV-2) Not Detected Not Detected INTERP RETATION: No (test code = 30816-3) detect able levels of SARS-CoV-2 Coronavirus (COVID-19) [...] SARS-CoV-2 mole cular diagnostic assa y utilizes Junior Systems Engineer Mediated Amplification ( TMA) technology to r apidly detect the SARS -CoV-2 (COVID-19) viru s from respiratory adriana ples. In accordance w ith the FDA's kamran nce document "Polic y for Diagnostic Test s for Coronavirus Disease-2018 du [facility] the [facility] Emergency", thi s test was developed, and its performance characteristics were verified by the [facility] molecular diagn ostics laboratory and is authorized for clinical diagno stic use. This labor atory is certified un est[place]an the Clinical Laboratory Improvement Amendments (CLI A) as qualified to pe rform high complexity clinical labora tory testing. Lab Interpretation Normal (test code = 02687-0) [facility], CoVID-19, [id number] 01:07:20 Test Item Value Reference Range Interpretation Comments COVID-19 (SARS-COV-2) Not Detected Not Detected INTERP RETATION: No (test code = 74582-6) detect able levels of SARS-CoV-2 Coronavirus (COVID-19) [...] SARS-CoV-2 mole cular diagnostic assa y utilizes Junior Systems Engineer Mediated Amplification ( TMA) technology to r apidly detect the SARS -CoV-2 (COVID-19) viru s from respiratory adriana ples. In accordance w ith the FDA's kamran nce document "Polic y for Diagnostic Test s for Coronavirus Disease-2019 du [facility] the [facility]", thi s test was developed, and its performance characteristics were verified by the [facility] molecular diagn ostics laboratory and is authorized for clinical diagno stic use. This labor atory is certified un [place] the Clinical Laboratory Improvement Amendments (CLI A) as qualified to pe rform high complexity clinical labora tory testing. Lab Interpretation Normal (test code = 71433-4) [facility], CoVID-19, [id number] 01:07:20 Test Item Value Reference Range Interpretation Comments COVID-19 (SARS-COV-2) Not Detected Not Detected INTERP RETATION: No (test code = 34478-8) detect able levels of SARS-CoV-2 Coronavirus (COVID-19) [...] SARS-CoV-2 mole cular diagnostic assa y utilizes [employer] Mediated Amplification ( TMA) technology to r apidly detect the SARS -CoV-2 (COVID-19) viru s from respiratory adriana ples. In accordance w ith the FDA's kamran nce document "Polic y for Diagnostic Test s for Coronavirus Disease-2019 du ring the [facility] Emergency", thi s test was developed, and its performance characteristics were verified by the [facility] molecular diagn ostics laboratory and is authorized for clinical diagno stic use. This labor atory is certified un est[place] the Clinical Laboratory Improvement Amendments (CLI A) as qualified to pe rform high complexity clinical labora tory testing. Lab Interpretation Normal (test code = 57492-4) [facility], [facility], [id number] 01:07:20 Test Item Value Reference Range Interpretation Comments COVID-19 (SARS-COV-2) Not Detected Not Detected INTERP RETATION: No (test code = 72595-5) detect able levels of SARS-CoV-2 Coronavirus (COVID-19) [...] SARS-CoV-2 mole cular diagnostic assa y utilizes Junior Systems Engineer Mediated Amplification ( TMA) technology to r apidly detect the SARS -CoV-2 (COVID-19) viru s from respiratory adriana ples. In accordance w ith the FDA's kamran nce document "Polic y for Diagnostic Test s for Coronavirus Disease-2019 du [facility] the [facility]", thi s test was developed, and its performance characteristics were verified by the [facility] molecular diagn ostics laboratory and is authorized for clinical diagno stic use. This labor atory is certified un est[place] the Clinical Laboratory Improvement Amendments (CLI A) as qualified to pe rform high complexity clinical labora tory testing. Lab Interpretation Normal (test code = 01775-3) [facility], CoV[facility]-19, [id number] 01:07:20 Test Item Value Reference Range Interpretation Comments COVID-19 (SARS-COV-2) Not Detected Not Detected INTERP RETATION: No (test code = 13778-2) detect able levels of SARS-CoV-2 Coronavirus (COVID-19) [...] SARS-CoV-2 mole cular diagnostic assa y utilizes Junior Systems Engineer Mediated Amplification ( TMA) technology to r apidly detect the SARS -CoV-2 (COVID-19) viru s from respiratory adriana ples. In accordance w ith the FDA's kamran nce document "Polic y for Diagnostic Test s for Coronavirus Disease-2019 du [facility] the [facility] Emergency", thi s test was developed, and its performance characteristics were verified by the [facility] molecular diagn ostics laboratory and is authorized for clinical diagno stic use. This labor atory is certified un est[place] the Clinical Laboratory Improvement Amendments (CLI A) as qualified to pe rform high complexity clinical labora tory testing. Lab Interpretation Normal (test code = 40464-8) [facility], [facility], [id number] 01:07:20 Test Item Value Reference Range Interpretation Comments COVID-19 (SARS-COV-2) Not Detected Not Detected INTERP RETATION: No (test code = 42317-6) detect able levels of SARS-CoV-2 Coronavirus (COVID-19) [...] SARS-CoV-2 mole cular diagnostic assa y utilizes Junior Systems Engineer Mediated Amplification ( TMA) technology to r apidly detect the SARS -CoV-2 (COVID-19) viru s from respiratory adriana ples. In accordance w ith the FDA's kamran nce document "Polic y for Diagnostic Test s for Coronavirus Disease-2019 du [facility] the [facility]", thi s test was developed, and its performance characteristics were verified by the [facility] molecular diagn ostics laboratory and is authorized for clinical diagno stic use. This labor atory is certified un est[place] the Clinical Laboratory Improvement Amendments (CLI A) as qualified to pe rform high complexity clinical labora tory testing. Lab Interpretation Normal (test code = 98833-3) [facility], CoV[facility]-19, [id number] 01:07:20 Test Item Value Reference Range Interpretation Comments COVID-19 (SARS-COV-2) Not Detected Not Detected INTERP RETATION: No (test code = 81400-6) detect able levels of SARS-CoV-2 Coronavirus (COVID-19) [...] SARS-CoV-2 mole cular diagnostic assa y utilizes Junior Systems Engineer Mediated Amplification ( TMA) technology to r apidly detect the SARS -CoV-2 (COVID-19) viru s from respiratory adriana ples. In accordance w ith the FDA's kamran nce document "Polic y for Diagnostic Test s for Coronavirus Disease-2019 du ring the Public [facility] Emergency", thi s test was developed, and its performance characteristics were verified by the [facility] molecular diagn ostics laboratory and is authorized for clinical diagno stic use. This labor atory is certified un [place] the Clinical Laboratory Improvement Amendments (CLI A) as qualified to pe rform high complexity clinical labora tory testing. Lab Interpretation Normal (test code = 64426-5) [facility], [facility]-19, [id number] 01:07:20 Test Item Value Reference Range Interpretation Comments COVID-19 (SARS-COV-2) Not Detected Not Detected INTERP RETATION: No (test code = 41463-7) detect able levels of SARS-CoV-2 Coronavirus (COVID-19) [...] SARS-CoV-2 mole cular diagnostic assa y utilizes Junior Systems Engineer Mediated Amplification ( TMA) technology to r apidly detect the SARS -CoV-2 (COVID-19) viru s from respiratory adriana ples. In accordance w ith the FDA's kamran nce document "Polic y for Diagnostic Test s for Coronavirus Disease-2019 du [facility]", thi s test was developed, and its performance characteristics were verified by the [facility] molecular diagn ostics laboratory and is authorized for clinical diagno stic use. This labor atory is certified un [place] the Clinical Laboratory Improvement Amendments (CLI A) as qualified to pe rform high complexity clinical labora tory testing. Lab Interpretation Normal (test code = 14090-6) [facility], [facility], [id number] 01:07:20 Test Item Value Reference Range Interpretation Comments COVID-19 (SARS-COV-2) Not Detected Not Detected INTERP RETATION: No (test code = 55898-8) detect able levels of SARS-CoV-2 Coronavirus (COVID-19) [...] SARS-CoV-2 mole cular diagnostic assa y utilizes Junior Systems Engineer Mediated Amplification ( TMA) technology to r apidly detect the SARS -CoV-2 (COVID-19) viru s from respiratory adriana ples. In accordance w ith the FDA's kamran nce document "Polic y for Diagnostic Test s for Coronavirus Disease-2019 du [facility] the [facility]", thi s test was developed, and its performance characteristics were verified by the [facility] molecular diagn ostics laboratory and is authorized for clinical diagno stic use. This labor atory is certified un [place] the Clinical Laboratory Improvement Amendments (CLI A) as qualified to pe rform high complexity clinical labora tory testing. Lab Interpretation Normal (test code = 18917-2) [facility], CoV[facility]-19, [id number] 01:07:20 Test Item Value Reference Range Interpretation Comments COVID-19 (SARS-COV-2) Not Detected Not Detected INTERP RETATION: No (test code = 80949-6) detect able levels of SARS-CoV-2 Coronavirus (COVID-19) [...] SARS-CoV-2 mole cular diagnostic assa y utilizes Junior Systems Engineer Mediated Amplification ( TMA) technology to r apidly detect the SARS -CoV-2 (COVID-19) viru s from respiratory adriana ples. In accordance w ith the FDA's kamran nce document "Polic y for Diagnostic Test s for Coronavirus Disease-2019 du ring the [facility]", thi s test was developed, and its performance characteristics were verified by the [facility] molecular diagn ostics laboratory and is authorized for clinical diagno stic use. This labor atory is certified un [place] the Clinical Laboratory Improvement Amendments (CLI A) as qualified to pe rform high complexity clinical labora tory testing. Lab Interpretation Normal (test code = 74969-7) [facility], CoVID-19, [id number] 01:07:20 Test Item Value Reference Range Interpretation Comments COVID-19 (SARS-COV-2) Not Detected Not Detected INTERP RETATION: No (test code = 80535-4) detect able levels of SARS-CoV-2 Coronavirus (COVID-19) [...] SARS-CoV-2 mole cular diagnostic assa y utilizes Junior Systems Engineer Mediated Amplification ( TMA) technology to r apidly detect the SARS -CoV-2 (COVID-19) viru s from respiratory adriana ples. In accordance w ith the FDA's kamran nce document "Polic y for Diagnostic Test s for Coronavirus Disease-2019 du ring the Public [facility] th Emergency", thi s test was developed, and its performance characteristics were verified by the [facility] molecular diagn ostics laboratory and is authorized for clinical diagno stic use. This labor atory is certified un [place] the Clinical Laboratory Improvement Amendments (CLI A) as qualified to pe rform high complexity clinical labora tory testing. Lab Interpretation Normal (test code = 75721-9) [facility], CoV[facility]-19, [id number] 01:07:20 Test Item Value Reference Range Interpretation Comments COVID-19 (SARS-COV-2) Not Detected Not Detected INTERP RETATION: No (test code = 86032-0) detect able levels of SARS-CoV-2 Coronavirus (COVID-19) [...] SARS-CoV-2 mole cular diagnostic assa y utilizes Junior Systems Engineer Mediated Amplification ( TMA) technology to r apidly detect the SARS -CoV-2 (COVID-19) viru s from respiratory adriana ples. In accordance w ith the FDA's kamran nce document "Polic y for Diagnostic Test s for Coronavirus Disease-2019 du ring the [facility] th Emergency", thi s test was developed, and its performance characteristics were verified by the [facility] molecular diagn ostics laboratory and is authorized for clinical diagno stic use. This labor atory is certified un [place] the Clinical Laboratory Improvement Amendments (CLI A) as qualified to pe rform high complexity clinical labora tory testing. Lab Interpretation Normal (test code = 90336-9) [facility], CoV[facility]-19, [id number] 01:07:20 Test Item Value Reference Range Interpretation Comments COVID-19 (SARS-COV-2) Not Detected Not Detected INTERP RETATION: No (test code = 72017-1) detect able levels of SARS-CoV-2 Coronavirus (COVID-19) [...] SARS-CoV-2 mole cular diagnostic assa y utilizes Junior Systems Engineer Mediated Amplification ( TMA) technology to r apidly detect the SARS -CoV-2 (COVID-19) viru s from respiratory adriana ples. In accordance w ith the FDA's kamran nce document "Polic y for Diagnostic Test s for Coronavirus Disease-2019 du [facility] the [facility] Emergency", thi s test was developed, and its performance characteristics were verified by the [facility] molecular diagn ostics laboratory and is authorized for clinical diagno stic use. This labor atory is certified un [place] the Clinical Laboratory Improvement Amendments (CLI A) as qualified to pe rform high complexity clinical labora tory testing. Lab Interpretation Normal (test code = 72660-3) [facility], CoVID-19, [id number] 01:07:20 Test Item Value Reference Range Interpretation Comments COVID-19 (SARS-COV-2) Not Detected Not Detected INTERP RETATION: No (test code = 56578-8) detect able levels of SARS-CoV-2 Coronavirus (COVID-19) [...] SARS-CoV-2 mole cular diagnostic assa y utilizes Junior Systems Engineer Mediated Amplification ( TMA) technology to r apidly detect the SARS -CoV-2 (COVID-19) viru s from respiratory adriana ples. In accordance w ith the FDA's kamran nce document "Polic y for Diagnostic Test s for Coronavirus Disease-2019 du [facility] the [facility] Emergency", thi s test was developed, and its performance characteristics were verified by the [facility] molecular diagn ostics laboratory and is authorized for clinical diagno stic use. This labor atory is certified un [place] the Clinical Laboratory Improvement Amendments (CLI A) as qualified to pe rform high complexity clinical labora tory testing. Lab Interpretation Normal (test code = 83003-2) [facility], CoV[facility]-19, [id number] 01:07:20 Test Item Value Reference Range Interpretation Comments COVID-19 (SARS-COV-2) Not Detected Not Detected INTERP RETATION: No (test code = 21159-6) detect able levels of SARS-CoV-2 Coronavirus (COVID-19) [...] SARS-CoV-2 mole cular diagnostic assa y utilizes Junior Systems Engineer Mediated Amplification ( TMA) technology to r apidly detect the SARS -CoV-2 (COVID-19) viru s from respiratory adriana ples. In accordance w ith the FDA's kamran nce document "Polic y for Diagnostic Test s for Coronavirus Disease-2019 du [facility] the [facility]", thi s test was developed, and its performance characteristics were verified by the [facility] molecular diagn ostics laboratory and is authorized for clinical diagno stic use. This labor atory is certified un [place] the Clinical Laboratory Improvement Amendments (CLI A) as qualified to pe rform high complexity clinical labora tory testing. Lab Interpretation Normal (test code = 60358-0) [facility], CoVID-19, [id number] 01:07:20 Test Item Value Reference Range Interpretation Comments COVID-19 (SARS-COV-2) Not Detected Not Detected INTERP RETATION: No (test code = 58109-0) detect able levels of SARS-CoV-2 Coronavirus (COVID-19) [...] SARS-CoV-2 mole cular diagnostic assa y utilizes Junior Systems Engineer Mediated Amplification ( TMA) technology to r apidly detect the SARS -CoV-2 (COVID-19) viru s from respiratory adriana ples. In accordance w ith the FDA's kamran nce document "Polic y for Diagnostic Test s for Coronavirus Disease-2019 du [facility] the [facility] th Emergency", thi s test was developed, and its performance characteristics were verified by the [facility] molecular diagn ostics laboratory and is authorized for clinical diagno stic use. This labor atory is certified un [place] the Clinical Laboratory Improvement Amendments (CLI A) as qualified to pe rform high complexity clinical labora tory testing. Lab Interpretation Normal (test code = 08462-3) [facility]aged Ruelasronavirus, CoVID-19, [id number] 01:07:20 Test Item Value Reference Range Interpretation Comments COVID-19 (SARS-COV-2) Not Detected Not Detected INTERP RETATION: No (test code = 67644-6) detect able levels of SARS-CoV-2 Coronavirus (COVID-19) [...] SARS-CoV-2 mole cular diagnostic assa y utilizes Junior Systems Engineer Mediated Amplification ( TMA) technology to r apidly detect the SARS -CoV-2 (COVID-19) viru s from respiratory adriana ples. In accordance w ith the FDA's kamran nce document "Polic y for Diagnostic Test s for Coronavirus Disease-2019 du [facility] the [facility]", thi s test was developed, and its performance characteristics were verified by the [facility] molecular diagn ostics laboratory and is authorized for clinical diagno stic use. This labor atory is certified un est[place] the Clinical Laboratory Improvement Amendments (CLI A) as qualified to pe rform high complexity clinical labora tory testing. Lab Interpretation Normal (test code = 25040-1) [facility]avirus, CoVID-19, [id number] 01:07:20 Test Item Value Reference Range Interpretation Comments COVID-19 (SARS-COV-2) Not Detected Not Detected INTERP RETATION: No (test code = 54966-9) detect able levels of SARS-CoV-2 Coronavirus (COVID-19) [...] SARS-CoV-2 mole cular diagnostic assa y utilizes Junior Systems Engineer Mediated Amplification ( TMA) technology to r apidly detect the SARS -CoV-2 (COVID-19) viru s from respiratory adriana ples. In accordance w ith the FDA's kamran nce document "Polic y for Diagnostic Test s for Coronavirus Disease-2019 du ring the [facility]", thi s test was developed, and its performance characteristics were verified by the [facility] molecular diagn ostics laboratory and is authorized for clinical diagno stic use. This labor atory is certified un [place] the Clinical Laboratory Improvement Amendments (CLI A) as qualified to pe rform high complexity clinical labora tory testing. Lab Interpretation Normal (test code = 38184-4) [facility], CoV[facility]-19, [id number] 01:07:20 Test Item Value Reference Range Interpretation Comments COVID-19 (SARS-COV-2) Not Detected Not Detected INTERP RETATION: No (test code = 00838-1) detect able levels of SARS-CoV-2 Coronavirus (COVID-19) [...] SARS-CoV-2 mole cular diagnostic assa y utilizes Junior Systems Engineer Mediated Amplification ( TMA) technology to r apidly detect the SARS -CoV-2 (COVID-19) viru s from respiratory adriana ples. In accordance w ith the FDA's kamran nce document "Polic y for Diagnostic Test s for Coronavirus Disease-2019 du ring [facility]", thi s test was developed, and its performance characteristics were verified by the [facility] molecular diagn ostics laboratory and is authorized for clinical diagno stic use. This labor atory is certified un est[place] the Clinical Laboratory Improvement Amendments (CLI A) as qualified to pe rform high complexity clinical labora tory testing. Lab Interpretation Normal (test code = 39613-6) [facility], CoVID-19, [id number] 01:07:20 Test Item Value Reference Range Interpretation Comments COVID-19 (SARS-COV-2) Not Detected Not Detected INTERP RETATION: No (test code = 75641-6) detect able levels of SARS-CoV-2 Coronavirus (COVID-19) [...] SARS-CoV-2 mole cular diagnostic assa y utilizes Junior Systems Engineer Mediated Amplification ( TMA) technology to r apidly detect the SARS -CoV-2 (COVID-19) viru s from respiratory adriana ples. In accordance w ith the FDA's kamran nce document "Polic y for Diagnostic Test s for Coronavirus Disease-2019 du ring [facility]", thi s test was developed, and its performance characteristics were verified by the [facility] molecular diagn ostics laboratory and is authorized for clinical diagno stic use. This labor atory is certified un [place] the Clinical Laboratory Improvement Amendments (CLI A) as qualified to pe rform high complexity clinical labora tory testing. Lab Interpretation Normal (test code = 45957-4) [facility]aged Ruel[facility]ronavirus, CoVID-19, [id number] 01:07:20 Test Item Value Reference Range Interpretation Comments COVID-19 (SARS-COV-2) Not Detected Not Detected INTERP RETATION: No (test code = 73436-8) detect able levels of SARS-CoV-2 Coronavirus (COVID-19) [...] SARS-CoV-2 mole cular diagnostic assa y utilizes Junior Systems Engineer Mediated Amplification ( TMA) technology to r apidly detect the SARS -CoV-2 (COVID-19) viru s from respiratory adriana ples. In accordance w ith the FDA's kamran nce document "Polic y for Diagnostic Test s for Coronavirus Disease-2019 du ring the [facility]", thi s test was developed, and its performance characteristics were verified by the [facility] molecular diagn ostics laboratory and is authorized for clinical diagno stic use. This labor atory is certified un [place] the Clinical Laboratory Improvement Amendments (CLI A) as qualified to pe rform high complexity clinical labora tory testing. Lab Interpretation Normal (test code = 12065-3) Maged Aaronavirus, CoVID-19, [id number] 01:07:20 Test Item Value Reference Range Interpretation Comments COVID-19 (SARS-COV-2) Not Detected Not Detected INTERP RETATION: No (test code = 91117-2) detect able levels of SARS-CoV-2 Coronavirus (COVID-19) [...] SARS-CoV-2 mole cular diagnostic assa y utilizes Junior Systems Engineer Mediated Amplification ( TMA) technology to r apidly detect the SARS -CoV-2 (COVID-19) viru s from respiratory adriana ples. In accordance w ith the FDA's kamran nce document "Polic y for Diagnostic Test s for Coronavirus Disease-2018 du [facility] the [facility] Emergency", thi s test was developed, and its performance characteristics were verified by the [facility] molecular diagn ostics laboratory and is authorized for clinical diagno stic use. This labor atory is certified un [place] the Clinical Laboratory Improvement Amendments (CLI A) as qualified to pe rform high complexity clinical labora tory testing. Lab Interpretation Normal (test code = 34518-2) [facility], CoV[facility]-19, [id number] 01:07:20 Test Item Value Reference Range Interpretation Comments COVID-19 (SARS-COV-2) Not Detected Not Detected INTERP RETATION: No (test code = 77386-2) detect able levels of SARS-CoV-2 Coronavirus (COVID-19) [...] SARS-CoV-2 mole cular diagnostic assa y utilizes Junior Systems Engineer Mediated Amplification ( TMA) technology to r apidly detect the SARS -CoV-2 (COVID-19) viru s from respiratory adriana ples. In accordance w ith the FDA's kamran nce document "Polic y for Diagnostic Test s for Coronavirus Disease-2019 du ring the [facility] Emergency", thi s test was developed, and its performance characteristics were verified by the [facility] molecular diagn ostics laboratory and is authorized for clinical diagno stic use. This labor atory is certified un est[place] the Clinical Laboratory Improvement Amendments (CLI A) as qualified to pe rform high complexity clinical labora tory testing. Lab Interpretation Normal (test code = 87786-5) [facility], CoVID-19, [id number] 01:07:20 Test Item Value Reference Range Interpretation Comments COVID-19 (SARS-COV-2) Not Detected Not Detected INTERP RETATION: No (test code = 65156-8) detect able levels of SARS-CoV-2 Coronavirus (COVID-19) [...] SARS-CoV-2 mole cular diagnostic assa y utilizes Junior Systems Engineer Mediated Amplification ( TMA) technology to r apidly detect the SARS -CoV-2 (COVID-19) viru s from respiratory adriana ples. In accordance w ith the FDA's kamran nce document "Polic y for Diagnostic Test s for Coronavirus Disease-2019 du ring the [facility] Emergency", thi s test was developed, and its performance characteristics were verified by the [facility] molecular diagn ostics laboratory and is authorized for clinical diagno stic use. This labor atory is certified un [place] the Clinical Laboratory Improvement Amendments (CLI A) as qualified to pe rform high complexity clinical labora tory testing. Lab Interpretation Normal (test code = 07544-6) [facility], CoV[facility]-19, [id number] 01:07:20 Test Item Value Reference Range Interpretation Comments COVID-19 (SARS-COV-2) Not Detected Not Detected INTERP RETATION: No (test code = 54005-8) detect able levels of SARS-CoV-2 Coronavirus (COVID-19) [...] SARS-CoV-2 mole cular diagnostic assa y utilizes Junior Systems Engineer Mediated Amplification ( TMA) technology to r apidly detect the SARS -CoV-2 (COVID-19) viru s from respiratory adriana ples. In accordance w ith the FDA's kamran nce document "Polic y for Diagnostic Test s for Coronavirus Disease-2019 du ring the [facility] Emergency", thi s test was developed, and its performance characteristics were verified by the [facility] molecular diagn ostics laboratory and is authorized for clinical diagno stic use. This labor atory is certified un est[place] the Clinical Laboratory Improvement Amendments (CLI A) as qualified to pe rform high complexity clinical labora tory testing. Lab Interpretation Normal (test code = 60317-1) [facility]M-5 ORF1ab Resp Ql [id number] 01:07:20 Test Item Value Reference Range Interpretation Comments Hospitalized? (test No code = 34257-1) ICU? (test code = No 05610-7) Symptomatic as No defined by CDC? (test code = 27765-0) Employed in No Healthcare? (test code = 48439-2) Resident in a No congregate care setting (including nursing homes, residential care for people with intellectual and developmental disabilities, psychiatric treatment facilities, group homes, board and care homes, homeless senior care, foster care or other): (test code = 68014-5) SARS-CoV-2 ORF1ab NOT DETECTED Not Detected INTERPRETA TION: No Resp Ql OLENA+probe detectable levels of (test code = SARS-CoV-2 79739-1) Coronavirus (COVID-19) were present in this patient's [...] SARS-CoV-2 mole cular diagnostic assa y utilizes Junior Systems Engineer Mediated Amplification ( TMA) technology to r apidly detect the SARS -CoV-2 (COVID-19) viru s from respiratory adriana ples. In accordance with\\XC2A0\\the FDA's guidance docume nt "Policy for Diagnostic Test s for Coronavirus Disease-2019 du ring the Public [facility] Emergency", amalia s test was developed, and its performance characteristics were verified by the [facility] molecular diagn ostics laboratory and is authorized for clinical diagno stic use. \\XC2A0\\Thi s laboratory is certified under the Clinical Labora tory Improvement Amendments (CLI A) as qualified to pe rform high complexity clinical labora tory testing. [facility]SPOCT GLUCOSE POC docked [id number] 08:09:01 Test Item Value Reference Range Interpretation Comments Glucose POC (test code = 36891208) 85 mg/dL 74-106 Lab Interpretation (test code = Normal 46480-8) [facility] biniyq2514-15-26 08:09:01 Test Item Value Reference Range Interpretation Comments Glucose POC (test code = 64128835) 85 mg/dL 74-106 Lab Interpretation (test code = Normal 81121-5) [facility] pxnpkb6866-39-26 08:09:01 Test Item Value Reference Range Interpretation Comments Glucose POC (test code = 79815752) 85 mg/dL 74-106 Lab Interpretation (test code = Normal 31030-0) [facility] whlcnn4885-29-65 08:09:01 Test Item Value Reference Range Interpretation Comments Glucose POC (test code = 25644224) 85 mg/dL 74-106 Lab Interpretation (test code = Normal 23222-7) [facility] qpkrwf9366-34-35 08:09:01 Test Item Value Reference Range Interpretation Comments Glucose POC (test code = 17131535) 85 mg/dL 74-106 Lab Interpretation (test code = Normal 83098-1) [facility] quevkr4006-95-80 08:09:01 Test Item Value Reference Range Interpretation Comments Glucose POC (test code = 66065435) 85 mg/dL 74-106 Lab Interpretation (test code = Normal 15122-2) [facility] dyvtvh6250-62-95 08:09:01 Test Item Value Reference Range Interpretation Comments Glucose POC (test code = 63367549) 85 mg/dL 74-106 Lab Interpretation (test code = Normal 14202-4) [facility] apgnsf2500-19-25 08:09:01 Test Item Value Reference Range Interpretation Comments Glucose POC (test code = 28148505) 85 mg/dL 74-106 Lab Interpretation (test code = Normal 77379-7) [facility] ywbwam6011-91-56 08:09:01 Test Item Value Reference Range Interpretation Comments Glucose POC (test code = 20892242) 85 mg/dL 74-106 Lab Interpretation (test code = Normal 37912-3) [facility] lvelya4449-77-74 08:09:01 Test Item Value Reference Range Interpretation Comments Glucose POC (test code = 78658499) 85 mg/dL 74-106 Lab Interpretation (test code = Normal 66071-4) [facility] qjwgss7416-52-69 08:09:01 Test Item Value Reference Range Interpretation Comments Glucose POC (test code = 95827895) 85 mg/dL 74-106 Lab Interpretation (test code = Normal 66214-9) [facility] zulbgm8161-22-16 08:09:01 Test Item Value Reference Range Interpretation Comments Glucose POC (test code = 81666238) 85 mg/dL 74-106 Lab Interpretation (test code = Normal 40046-0) [facility] wjntiw0916-76-73 08:09:01 Test Item Value Reference Range Interpretation Comments Glucose POC (test code = 33944469) 85 mg/dL 74-106 Lab Interpretation (test code = Normal 09066-6) [facility] knawzb3257-46-24 08:09:01 Test Item Value Reference Range Interpretation Comments Glucose POC (test code = 30856507) 85 mg/dL 74-106 Lab Interpretation (test code = Normal 48767-6) [facility] ptdefo2231-50-28 08:09:01 Test Item Value Reference Range Interpretation Comments Glucose POC (test code = 52465754) 85 mg/dL 74-106 Lab Interpretation (test code = Normal 71790-7) [facility] mdgaqu1341-35-73 08:09:01 Test Item Value Reference Range Interpretation Comments Glucose POC (test code = 89187817) 85 mg/dL 74-106 Lab Interpretation (test code = Normal 54632-7) [facility] ytluut1737-79-82 08:09:01 Test Item Value Reference Range Interpretation Comments Glucose POC (test code = 49293942) 85 mg/dL 74-106 Lab Interpretation (test code = Normal 29719-7) [facility] boeqsu7112-60-04 08:09:01 Test Item Value Reference Range Interpretation Comments Glucose POC (test code = 31309854) 85 mg/dL 74-106 Lab Interpretation (test code = Normal 51627-2) [facility] cigblp3510-54-70 08:09:01 Test Item Value Reference Range Interpretation Comments Glucose POC (test code = 27356411) 85 mg/dL 74-106 Lab Interpretation (test code = Normal 17989-1) [facility] jajoth9767-23-50 08:09:01 Test Item Value Reference Range Interpretation Comments Glucose POC (test code = 38473122) 85 mg/dL 74-106 Lab Interpretation (test code = Normal 90261-9) [facility] vkpgab4058-25-45 08:09:01 Test Item Value Reference Range Interpretation Comments Glucose POC (test code = 50011720) 85 mg/dL 74-106 Lab Interpretation (test code = Normal 38582-7) [facility] alnqpw5121-97-20 08:09:01 Test Item Value Reference Range Interpretation Comments Glucose POC (test code = 45995185) 85 mg/dL 74-106 Lab Interpretation (test code = Normal 02419-9) [facility] josist7842-48-83 08:09:01 Test Item Value Reference Range Interpretation Comments Glucose POC (test code = 34911811) 85 mg/dL 74-106 Lab Interpretation (test code = Normal 67202-4) [facility] enfioh1243-07-70 08:09:01 Test Item Value Reference Range Interpretation Comments Glucose POC (test code = 22271212) 85 mg/dL 74-106 Lab Interpretation (test code = Normal 39855-8) [facility] htfprr4586-89-76 08:09:01 Test Item Value Reference Range Interpretation Comments Glucose POC (test code = 45383971) 85 mg/dL 74-106 Lab Interpretation (test code = Normal 72736-1) [facility], [facility]19, FZR1058-87-25 23:25:40 Test Item Value Reference Range Interpretation Comments COVID-19 (SARS-COV-2) Not Detected Not Detected INTERP RETATION: No (test code = 57864-2) detect able levels of SARS-CoV-2 Coronavirus (COVID-19) [...] SARS-CoV-2 mole cular diagnostic assa y utilizes Junior Systems Engineer Mediated Amplification ( TMA) technology to r apidly detect the SARS -CoV-2 (COVID-19) viru s from respiratory adriana ples. In accordance w ith the FDA's kamran nce document "Polic y for Diagnostic Test s for Coronavirus Disease-2019 du ring the Public [facility]", thi s test was developed, and its performance characteristics were verified by the [facility] molecular diagn ostics laboratory and is authorized for clinical diagno stic use. This labor atory is certified un estevan the Clinical Laboratory Improvement Amendments (CLI A) as qualified to pe rform high complexity clinical labora tory testing. Lab Interpretation Normal (test code = 95219-8) [facility] ORF1ab Resp Ql OLENA+wxtlb6873-97-42 23:25:40 Test Item Value Reference Range Interpretation Comments Hospitalized? (test No code = 22974-5) ICU? (test code = No 81510-4) Symptomatic as No defined by CDC? (test code = 96122-0) Employed in No Healthcare? (test code = 38501-5) Resident in a No congregate care setting (including nursing homes, residential care for people with intellectual and developmental disabilities, psychiatric treatment facilities, group homes, board and care homes, homeless senior care, foster care or other): (test code = 05573-5) SARS-CoV-2 ORF1ab NOT DETECTED Not Detected INTERPRETA TION: No Resp Ql OLENA+probe detectable levels of (test code = SARS-CoV-2 09301-5) Coronavirus (COVID-19) were present in this patient's [...] SARS-CoV-2 mole cular diagnostic assa y utilizes Junior Systems Engineer Mediated Amplification ( TMA) technology to r apidly detect the SARS -CoV-2 (COVID-19) viru s from respiratory adriana ples. In accordance with\\XC2A0\\the FDA's guidance docume nt "Policy for Diagnostic Test s for Coronavirus Disease-2019 du ring the Public [facility] Emergency", amalia s test was developed, and its performance characteristics were verified by the [facility] molecular diagn ostics laboratory and is authorized for clinical diagno stic use. \\XC2A0\\Thi s laboratory is certified under the Clinical Labora tory Improvement Amendments (CLI A) as qualified to pe rform high complexity clinical labora tory testing. 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: [id number]: 1970 Requested By: SUSHIL Cho Number: [id number] Reading MD: Rene Patterson MeasurementsIntervals Satin Rate: 61 P: 72PR: 152 QRS: 55QRSD: 106 T: 63QT: 398 QTc: 400 Interpretive StatementsSINUS RHYTHMPOSSIBLE RIGHT VENTRICULAR CONDUCTION DELAY [RSR (QR) IN V1/V2]Electronically Signed On 01-22-2022 8:30:45 CDT by Rene AvitiaNHCompaJennifer [place] [address] Lead [id number] 15:46:1012 LEAD EKG FOR [facility] Test Date: 0950-60-50Uax Name: DORA PAEZRY Department: 5ECIPatient ID: [id number] Room: Gender: M Rack Production Worker: [id number]: 1970 Requested By: SUSHIL Cho Number: [id number] Reading MD: Rene Patterson MeasurementsIntervals Satin Rate: 61 P: 72PR: 152 QRS: 55QRSD: 106 T: 63QT: 398 QTc: 400 Interpretive StatementsSINUS RHYTHMPOSSIBLE RIGHT VENTR ICULAR CONDUCTION DELAY [RSR (QR) IN V1/V2]Electronically Signed On 01-22-2022 8:30:45 CDT by Rene Valle Iecmvd87 Lead [id number] 15:46:1012 LEAD EKG FOR [facility] Test Date: 4917-96-42Itb Name: DORA MCNEILL Department: 5ECIPatient ID: [id number] Room: Gender: Rack Production Worker: [id number]: 1970 Requested By: SUSHIL Cho Number: [id number] Reading MD: Rene Patterson MeasurementsIntervals Satin Rate: 61 P: 72PR: 152 QRS: 55QRSD: 106 T: 63QT: 398 QTc: 400 Interpretive StatementsSINUS RHYTHMPOSSIBLE RIGHT VENTRICULAR CONDUCTION DELAY [RSR (QR) IN V1/V2]Electronically Signed On 01-22-2022 8:30:45 CDT by Rene AvitiaDexin InteractiveMaged Fktzvr15 Lead [id number] 15:46:1012 LEAD EKG FOR [facility] Test Date: 4609-42-19Uoj Name: DORA MCNEILL Department: 5ECIPatient ID: [id number] Room: Gender: Rack Production Worker: [id number]: 1970 Requested By: SUSHIL Cho Number: [id number] Reading MD: Rene Patterson MeasurementsIntervals Satin Rate: 61 P: 72PR : 152 QRS: 55QRSD: 106 T: 63QT: 398 QTc: 400 Interpretive StatementsSINUS RHYTHMPOSSIBLE RIGHT VENTRICULAR CONDUCTION DELAY [RSR (QR) IN V1/V2]Electronically Signed On 01-22-2022 8:30:45 CDT by Rene AvitiaDexin InteractiveCompaOlympic [facility]12 Lead [id number] 15:46:1012 LEAD EKG FOR [facility] Test Date: 4804-27-83Igl Name: DORA MCNEILL Department: 5ECIPatient ID: [id number] Room: Gender: M Rack Production Worker: [id number]: 1970 Requested By: SUSHIL Cho Number: [id number] Reading MD: Rene Patterson MeasurementsIntervals Satin Rate: 61 P: 72PR: 152 QRS: 55QRSD: 106 T: 63QT: 398 QTc: 400 Interpretive StatementsSINUS RHYTHMPOSSIBLE RIGHT VENTRICULAR CONDUCTION DELAY [RSR (QR) IN V1/V2]Electronically Signed On 01-22-2022 8:30:45 CDT by Rene Valle Xixqrn53 Lead [id number] 15:46:1012 LEAD EKG FOR [facility] Test Date: 4108-48-09Gjs Name: DORA MCNEILL Department: 5ECIPatient ID: [id number] Room: Gender: M Rack Production Worker: [id number]: 1970 Requested By: SUSHIL Cho Number: [id number] Reading MD: Rene Patterson MeasurementsIntervals Satin Rate: 61 P: 72PR: 152 QRS: 55QRSD: 106 T: 63QT: 398 QTc: 400 Interpretive StatementsSINUS RHYTHMPOSSIBLE RIGHT VENTR ICULAR CONDUCTION DELAY [RSR (QR) IN V1/V2]Electronically Signed On 01-22-2022 8:30:45 CDT by Rene Valle Avjpum53 Lead [id number] 15:46:1012 LEAD EKG FOR [facility] Test Date: 8258-28-30Ypm Name: DORA MCNEILL Department: 5ECIPatient ID: [id number] Room: Gender: M Rack Production Worker: [id number]: 1970 Requested By: SUSHIL Cho Number: [id number] Reading MD: Rene Patterson MeasurementsIntervals Satin Rate: 61 P: 72PR: 152 QRS: 55QRSD: 106 T: 63QT: 398 QTc: 400 Interpretive StatementsSINUS RHYTHMPOSSIBLE RIGHT VENTRICULAR CONDUCTION DELAY [RSR (QR) IN V1/V2]Electronically Signed On 01-22-2022 8:30:45 CDT by Rene AvitiaDexin InteractiveCompaOwler, Inc.12 Lead [id number] 15:46:1012 LEAD EKG FOR [facility] Test Date: 0913-31-39Fyt Name: DORA MCNEILL Department: 5EPatient ID: [id number] Room: Gender: M Rack Production Worker: [id number]: 1970 Requested By: SUSHIL Cho Number: [id number] Reading MD: Rene Patterson MeasurementsIntervals Satin Rate: 61 P: 72PR : 152 QRS: 55QRSD: 106 T: 63QT: 398 QTc: 400 Interpretive StatementsSINUS RHYTHMPOSSIBLE RIGHT VENTRICULAR CONDUCTION DELAY [RSR (QR) IN V1/V2]Electronically Signed On 01-22-2022 8:30:45 CDT by [facility]ene [facility]12 Lead [id number] 15:46:1012 LEAD EKG FOR [facility] Test Date: 7321-26-55Kkl Name: DORA MCNEILL Department: 5EPatient ID: [id number] Room: Gender: M Rack Production Worker: [id number]: 1970 Requested By: SUSHIL Cho Number: [id number] Reading MD: Rene Patterson MeasurementsIntervals Satin Rate: 61 P: 72PR: 152 QRS: 55QRSD: 106 T: 63QT: 398 QTc: 400 Interpretive StatementsSINUS RHYTHMPOSSIBLE RIGHT VENTRICULAR CONDUCTION DELAY [RSR (QR) IN V1/V2]Electronically Signed On 01-22-2022 8:30:45 CDT by Rene Valle Stzuno76 Lead [id number] 15:46:1012 LEAD EKG FOR [facility] Test Date: 6609-50-87Nyd Name: DORA MCNEILL Department: 5ECIPatient ID: [id number] Room: Gender: M Rack Production Worker: [id number]: 1970 Requested By: SUSHIL Cho Number: [id number] Reading MD: Rene Patterson MeasurementsIntervals Satin Rate: 61 P: 72PR: 152 QRS: 55QRSD: 106 T: 63QT: 398 QTc: 400 Interpretive StatementsSINUS RHYTHMPOSSIBLE RIGHT VENTR ICULAR CONDUCTION DELAY [RSR (QR) IN V1/V2]Electronically Signed On 01-22-2022 8:30:45 CDT by Rnee RahmanSMSHarris Hsqkjx03 Lead [id number] 15:46:1012 LEAD EKG FOR [facility] Test Date: 4470-16-68Fkx Name: DORA MCNEILL Department: 5ECIPatient ID: [id number] Room: Gender: M Rack Production Worker: [id number]: 1970 Requested By: SUSHIL Cho Number: [id number] Reading MD: Rene Patterson MeasurementsIntervals Satin Rate: 61 P: 72PR: 152 QRS: 55QRSD: 106 T: 63QT: 398 QTc: 400 Interpretive StatementsSINUS RHYTHMPOSSIBLE RIGHT VENTRICULAR CONDUCTION DELAY [RSR (QR) IN V1/V2]Electronically Signed On 01-22-2022 8:30:45 CDT by Rene [facility]anSNHHaral[facility] Ukzcvt38 Lead [id number] 15:46:1012 LEAD EKG FOR [facility] Test Date: 7748-10-62Sfj Name: DORA MCNEILL Department: 5ECIPatient ID: [id number] Room: Gender: M Rack Production Worker: [id number]: 1970 Requested By: SUSHIL Cho Number: [id number] Reading MD: Rene Patterson MeasurementsIntervals Satin Rate: 61 P: 72P R: 152 QRS: 55QRSD: 106 T: 63QT: 398 QTc: 400 Interpretive StatementsSINUS RHYTHMPOSSIBLE RIGHT VENTRICULAR CONDUCTION DELAY [RSR (QR) IN V1/V2]Electronically Signed On 01-22-2022 8:30:45 CDT by Rene DebbyNHHarris Xaffxz19 Lead [id number] 15:46:1012 LEAD EKG FOR [facility] Test Date: 4514-56-65Sye Name: DORA MCNEILL Department: 5ECIPatient ID: [id number] Room: Gender: M Rack Production Worker: [id number]: 1970 Requested By: SUSHIL Cho Number: [id number] Reading MD: Rene Patterosn MeasurementsIntervals Satin Rate: 61 P: 72PR: 152 QRS: 55QRSD: 106 T: 63QT: 398 QTc: 400 Interpretive StatementsSINUS RHYTHMPOSSIBLE RIGHT VENTRICULAR CONDUCTION DELAY [RSR (QR) IN V1/V2]Electronically Signed On 01-22-2022 8:30:45 CDT by Rene AvitiaDexin InteractiveCompaalbuquerque ind[facility] clinic Ylhqln15 Lead [id number] 15:46:1012 LEAD EKG FOR [facility] Test Date: 0512-88-64Dnn Name: DORA MCNEILL Department: 5ECIPatient ID: [id number] Room: Gender: M Rack Production Worker: [id number]: 1970 Requested By: SUSHIL Cho Number: [id number] Reading MD: Rene Patterson MeasurementsIntervals Satin Rate: 61 P: 72PR: 152 QRS: 55QRSD: 106 T: 63QT: 398 QTc: 400 Interpretive StatementsSINUS RHYTHMPOSSIBLE RIGHT VENT RICULAR CONDUCTION DELAY [RSR (QR) IN V1/V2]Electronically Signed On 01-22-2022 8:30:45 CDT by Rene DebbyDexin InteractiveCompaalbuquerque ind[facility] clinic Lrgsro21 Lead [id number] 15:46:1012 LEAD EKG FOR [facility] Test Date: 4318-55-65Mbb Name: DORA MCNEILL Department: 5ECIPatient ID: [id number] Room: Gender: M Rack Production Worker: [id number]: 1970 Requested By: SUSHIL Cho Number: [id number] Reading MD: Rene Patterson MeasurementsIntervals Satin Rate: 61 P: 72PR: 152 QRS: 55QRSD: 106 T: 63QT: 398 QTc: 400 Interpretive StatementsSINUS RHYTHMPOSSIBLE RIGHT VENTRICULAR CONDUCTION DELAY [RSR (QR) IN V1/V2]Electronically Signed On 01-22-2022 8:30:45 CDT by Rene DebbyDexin InteractiveCompaalbuquerque [facility] clinic Gifvxc84 Lead [id number] 15:46:1012 LEAD EKG FOR [facility] Test Date: 5709-05-97Myi Name: DORA MCNEILL Department: 5ECIPatient ID: [id number] Room: Gender: M Rack Production Worker: [id number]: 1970 Requested By: SUSHIL Cho Number: [id number] Reading MD: Rene Patterson MeasurementsIntervals Satin Rate: 61 P: 72PR: 152 QRS: 55QRSD: 106 T: 63QT: 398 QTc: 400 Interpretive StatementsSINUS RHYTHMPOSSIBLE RIGHT VENTRICULAR CONDUCTION DELAY [RSR (QR) IN V1/V2]Electronically Signed On 01-22-2022 8:30:45 CDT by Renerick AvitiaDexin InteractiveCompaOwler, Inc.12 Lead [id number] 15:46:1012 LEAD EKG FOR [facility] Test Date: 5005-50-77Clk Name: DORA MCNEILL Department: 5ECIPatient ID: [id number] Room: Gender: M Rack Production Worker: [id number]: 1970 Requested By: SUSHIL Cho Number: [id number] Reading MD: Rene Patterson MeasurementsIntervals Satin Rate: 61 P: 72PR: 152 QRS: 55QRSD: 106 T: 63QT: 398 QTc: 400 Interpretive StatementsSINUS RHYTHMPOSSIBLE RIGHT VENTRICULAR CONDUCTION DELAY [RSR (QR) IN V1/V2]Electronically Signed On 01-22-2022 8:30:45 CDT by Renerick AvitiaDexin InteractiveCompaOwler, Inc.12 Lead [id number] 15:46:1012 LEAD EKG FOR [facility] Test Date: 7027-37-61Coa Name: DORA MCNEILL Department: 5ECIPatient ID: [id number] Room: Gender: M Rack Production Worker: [id number]: 1970 Requested By: SUSHIL Cho Number: [id number] Reading MD: Rene Patterson MeasurementsIntervals Satin Rate: 61 P: 72PR: 152 QRS: 55QRSD: 106 T: 63QT: 398 QTc: 400 Interpretive StatementsSINUS RHYTHMPOSSIBLE RIGHT VENTR ICULAR CONDUCTION DELAY [RSR (QR) IN V1/V2]Electronically Signed On 01-22-2022 8:30:45 CDT by Rene SadiDexin InteractiveComparis Hsymuz16 Lead [id number] 15:46:1012 LEAD EKG FOR [facility] Test Date: 9845-53-75Ztb Name: DORA MCNEILL Department: 5ECIPatient ID: [id number] Room: Gender: M Rack Production Worker: [id number]: 1970 Requested By: SUSHIL Cho Number: [id number] Reading MD: Rene Patterson MeasurementsIntervals Satin Rate: 61 P: 72PR:152 QRS: 55QRSD: 106 T: 63QT: 398 QTc: 400 Interpretive StatementsSINUS RHYTHMPOSSIBLE RIGHT VENTRICULAR CONDUCTION DELAY [RSR (QR) IN V1/V2]Electronically Signed On 01-22-2022 8:30:45 CDT by Rene AvitiaDexin InteractiveMaged Lzwfki78 Lead [id number] 15:46:1012 LEAD EKG FOR [facility] Test Date: 6781-20-64Dxy Name: DORA MCNEILL Department: 5EPatient ID: [id number] Room: Gender: M Rack Production Worker: [id number]: 1970 Requested By: SUSHIL Cho Number: [id number] Reading MD: Rene Patterson MeasurementsIntervals Satin Rate: 61 P: 72PR: 152 QRS: 55QRSD: 106 T: 63QT: 398 QTc: 400 Interpretive StatementsSINUS RHYTHMPOSSIBLE RIGHT VENTRICULAR CONDUCTION DELAY [RSR (QR) IN V1/V2]Electronically Signed On 01-22-2022 8:30:45 CDT by Rene Valle Pvkkge33 Lead [id number] 15:46:1012 LEAD EKG FOR [facility] Test Date: 9209-73-19Sia Name: DORA MCNEILL Department: 5ECIPatient ID: [id number] Room: Gender: M Rack Production Worker: [id number]: 1970 Requested By: SUSHIL Cho Number: [id number] Reading MD: Rene Patterson MeasurementsIntervals Satin Rate: 61 P: 72PR:152 QRS: 55QRSD: 106 T: 63QT: 398 QTc: 400 Interpretive StatementsSINUS RHYTHMPOSSIBLE RIGHT VENTRICULAR CONDUCTION DELAY [RSR (QR) IN V1/V2]Electronically Signed On 01-22-2022 8:30:45 CDT by [facility]Hol[facility] Lead [id number] 15:46:1012 LEAD EKG FOR [facility] Test Date: 0168-87-98Bzp Name: DORA MCNEILL Department: 5ECIPatient ID: [id number] Room: Gender: Rack Production Worker: [id number]: 1970 Requested By: SUSHIL Cho Number: [id number] Reading MD: Rene Patterson MeasurementsIntervals Satin Rate: 61 P: 72PR: 152 QRS: 55QRSD: 106 T: 63QT: 398 QTc: 400 Interpretive StatementsSINUS RHYTHMPOSSIBLE RIGHT VENTR ICULAR CONDUCTION DELAY [RSR (QR) IN V1/V2]Electronically Signed On 01-22-2022 8:30:45 CDT by Rene AvitiaDexin InteractiveCompaJennifer Ville [address] Lead [id number] 15:46:1012 LEAD EKG FOR [facility] Test Date: 5960-94-82Paa Name: DORA MCNEILL Department: 5ECIPatient ID: [id number] Room: Gender: Rack Production Worker: [id number]: 1970 Requested By: SUSHIL Cho Number: [id number] Reading MD: Rene Patterson MeasurementsIntervals Satin Rate: 61 P: 72PR: 152 QRS: 55QRSD: 106 T: 63QT: 398 QTc: 400 Interpretive StatementsSINUS RHYTHMPOSSIBLE RIGHT VENTRICULAR CONDUCTION DELAY [RSR (QR) IN V1/V2]Electronically Signed On 01-22-2022 8:30:45 CDT by [facility]rettDebbyBerger HospitalV 1+2 Ab+HIV1 p24 Ag SerPl Ql [id number] 07:02:58 Test Item Value Reference Range Interpretation Comments HIV 1+2 Ab+HIV1 p24 Ag SerPl Ql IA NEGATIVE Negative (test code = 57465-4) [id number] 21:23:2512 LEAD EKG FOR [facility] Test Date: 1143-00-03Mrq Name: DORA MCNEILL Department: 5520Patient ID: [id number] Room: 7E18Pzchkz: 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1970 Requested By: KARIN BASSETT AOrder Number: [id number] Reading MD: Chiara Calles MeasurementsIntervals Satin Rate: 72 P: 90PR: 157 QRS: 87QRSD: 105 T: 90QT: 360 QTc: 384 Interpretive StatementsSINUS RHYTHMPOSSIBLE RIGHT VENTRICULAR CONDUCTION DELAY [RSR (QR) IN V1/V2]EARLY REPOLARIZATION [ST ELEVATION WITH NORMALLY INFLECTEDT- WAVE]Electronically Signed On 01-17-2022 13:02:30 CDT by [facility] Beamz InteractiveB[place] [id number] 21:23:2512 LEAD EKG FOR [facility] Test Date: 8011-51-68Hrv Name: DORA MCNEILL Department: 5520Patient ID: [id number] Room: 4H90Hhqptj: 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1970 Requested By: KARIN BASSETT AOrder Number: [id number] Reading MD: Chiara Calles MeasurementsIntervals Satin Rate: 72 P: 90PR: 157 QRS: 87QRSD: 105 T: 90QT: 360 QTc: 384 Interpretive StatementsSINUS RHYTHMPOSSIBLE RIGHT VENTRICULAR CONDUCTION DELAY [RSR (QR) IN V1/V2]EARLY REPOLARIZATION [ST ELEVATION WITH NORMALLY INFLECTED T-W AVE]Electronically Signed On 01-17-2022 13:02:30 CDT by [facility] Beam[place] InteractiveB[place] [id number] 21:23:2512 LEAD EKG FOR [facility] Test Date: 9620-96-13Ekk Name: DORA MCNEILL Department: 5520Patient ID: [id number] Room: 3N69Bnbnaw: 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1970 Requested By: KARIN BASSETT AOrder Number: [id number] Reading MD: Chiara Calles MeasurementsIntervals Satin Rate: 72 P: 90PR:157 QRS: 87QRSD: 105 T: 90QT: 360 QTc: 384 Interpretive StatementsSINUS RHYTHMPOSSIBLE RIGHT VENTRICULAR CONDUCTION DELAY [RSR (QR) IN V1/V2]EARLY REPOLARIZATION [ST ELEVATION WITH NORMALLY INFLECTED T- WAVE]Electronically Signed On 01-17-2022 13:02:30 CDT by [place] [id number] 21:23:2512 LEAD EKG [facility] Test Date: 0574-25-18Fov Name: DORA MCNEILL Department: 5520Patient ID: [id number] Room: 7O46Zdgamn: 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1970 Requested By: KARIN BASSETT AOrder Number: [id number] Reading MD: Chiara Calles MeasurementsIntervals Satin Rate: 72 P: 90PR: 157 QRS: 87QRSD: 105 T: 90QT: 360 QTc: 384 Interpretive StatementsSINUS RHYTHMPOSSIBLE RIGHT VENTRICULAR CONDUCTION DELAY [RSR (QR) IN V1/V2]EARLY REPOLARIZATION [ST ELEVATION WITH NORMALLY INFLECTED T-W AVE]Electronically Signed On 01-17-2022 13:02:30 CDT by [place] [id number] 21:23:2512 LEAD EKG FOR [facility] Test Date: 9504-21-38Nwo Name: DORA MCNEILL Department: 5520Patient ID: [id number] Room: 2F67Dnfvls: 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1970 Requested By: KARIN BASSETT AOrder Number: [id number] Reading MD: Chiara Calles MeasurementsIntervals Satin Rate: 72 P: 90PR:157 QRS: 87QRSD: 105 T: 90QT: 360 QTc: 384 Interpretive StatementsSINUS RHYTHMPOSSIBLE RIGHT VENTRICULAR CONDUCTION DELAY [RSR (QR) IN V1/V2]EARLY REPOLARIZATION [ST ELEVATION WITH NORMALLY INFLECTED T- WAVE]Electronically Signed On 01-17-2022 13:02:30 CDT by [place] [id number] 21:23:2512 LEAD EKG FOR [facility] Test Date: 2838-63-18Ygm Name: DORA MCNEILL Department: 5520Patient ID: [id number] Room: 2E72Qnsphe: 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1970 Requested By: KARIN BASSETT AOrder Number: [id number] Reading : Chiara Calles MeasurementsIntervals Satin Rate: 72 P: 90PR: 157 QRS: 87QRSD: 105 T: 90QT: 360 QTc: 384 Interpretive StatementsSINUS RHYTHMPOSSIBLE RIGHT VENTRICULAR CONDUCTION DELAY [RSR (QR) IN V1/V2]EARLY REPOLARIZATION [ST ELEVATION WITH NORMALLY INFLECTED T- WAVE]Electronically Signed On 01-17-2022 13:02:30 CDT by [facility] Beamz InteractiveBryan [place] [id number] 21:23:2512 LEAD EKG FOR [facility] Test Date: 5830-44-28Lsu Name: DORA MCNEILL Department: 5520Patient ID: [id number] Room: 3G41Wlpkwy: 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1970 Requested By: KARIN BASSETT AOrder Number: [id number] Reading MD: Chiara Calles MeasurementsIntervals Satin Rate: 72 P: 90PR: 157 QRS: 87QRSD: 105 T: 90QT: 360 QTc: 384 Interpretive StatementsSINUS RHYTHMPOSSIBLE RIGHT VENTRICULAR CONDUCTION DELAY [RSR (QR) IN V1/V2]EARLY REPOLARIZATION [ST ELEVATION WITH NORMALLY INFLECTED T- WAVE]Electronically Signed On 01-17-2022 13:02:30 CD[facility] Beamz InteractivePeacehealthAvraldUJF3749-65-83 21:23:2512 LEAD EKG FOR [facility] Test Date: 2396-48-24Uti Name: DORA MCNEILL Department: 5520Patient ID: [id number] Room: 6M18Gbblew: 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1970 Requested By: JESSICA AOrder Number: [id number] Reading MD: Chiara Calles MeasurementsIntervals Satin Rate: 72 P: 90PR:157 QRS: 87QRSD: 105 T: 90QT: 360 QTc: 384 Interpretive StatementsSINUS RHYTHMPOSSIBLE RIGHT VENTRICULAR CONDUCTION DELAY [RSR (QR) IN V1/V2]EARLY REPOLARIZATION [ST ELEVATION WITH NORMALLY INFLECTED T- WAVE]Electronically Signed On 01-17-2022 13:02:30 CDT by [facility] EcoSMART TechnologiesChristina Ville [id number] 21:23:2512 LEAD EKG FOR [facility] Test Date: 0665-23-78Hdn Name: DORA MCNEILL Department: 5520Patient ID: [id number] Room: 0H66Cjsxjk: 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1970 Requested By: KARIN BASSETT AOrder Number: [id number] Reading MD: Chiara Calles MeasurementsIntervals Satin Rate: 72 P: 90PR:157 QRS: 87QRSD: 105 T: 90QT: 360 QTc: 384 Interpretive StatementsSINUS RHYTHMPOSSIBLE RIGHT VENTRICULAR CONDUCTION DELAY [RSR (QR) IN V1/V2]EARLY REPOLARIZATION [ST ELEVATION WITH NORMALLY INFLECTED T- WAVE]Electronically Signed On 01-17-2022 13:02:30 CDT by [facility] Beamz InteractivePiggott Community HospitalOwler, Inc.BaktbwPBJ4218-90-75 21:23:2512 LEAD EKG FOR [facility] Test Date: 5374-91-01Tet Name: DORA MCNEILL Department: 5520Patient ID: [id number] Room: 1E52Hzqdri: 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1970 Requested By: KARIN BASSETT AOrder Number: [id number] Reading MD: Chiara Calles MeasurementsIntervals Satin Rate: 72 P: 90PR:157 QRS: 87QRSD: 105 T: 90QT: 360 QTc: 384 Interpretive StatementsSINUS RHYTHMPOSSIBLE RIGHT VENTRICULAR CONDUCTION DELAY [RSR (QR) IN V1/V2]EARLY REPOLARIZATION [ST ELEVATION WITH NORMALLY INFLECTED T- WAVE]Electronically Signed On 01-17-2022 13:02:30 CDT by [facility] Beamz InteractiveB[place] [id number] 21:23:2512 LEAD EKG FOR [facility] Test Date: 4577-57-11Ovk Name: DORA MCNEILL Department: 5520Patient ID: [id number] Room: 6Y21Ioytiz: 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1970 Requested By: JESSICA AOrder Number: [id number] Reading MD: Chiara Calles MeasurementsIntervals Satin Rate: 72 P: 90PR: 157 QRS: 87QRSD: 105 T: 90QT: 360 QTc: 384 Interpretive StatementsSINUS RHYTHMPOSSIBLE RIGHT VENTRICULAR CONDUCTION DELAY [RSR (QR) IN V1/V2]EARLY REPOLARIZATION [ST ELEVATION WITH NORMALLY INFLECTEDT- WAVE]Electronically Signed On 01-17-2022 13:02:30 CDT by [facility] CenterUSConnectEKG2022-05-26 21:23:2512 LEAD EKG FOR [facility] Test Date: 7052-49-91Jlt Name: DORA MCNEILL Department: 5520Patient ID: [id number] Room: 3U20Qefqsd: 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1970 Requested By: KARIN BASSETT AOrder Number: [id number] Reading MD: Chiara Calles MeasurementsIntervals Satin Rate: 72 P: 90PR:157 QRS: 87QRSD: 105 T: 90QT: 360 QTc: 384 Interpretive StatementsSINUS RHYTHMPOSSIBLE RIGHT VENTRICULAR CONDUCTION DELAY [RSR (QR) IN V1/V2]EARLY REPOLARIZATION [ST ELEVATION WITH NORMALLY INFLECTED T- WAVE]Electronically Signed On 01-17-2022 13:02:30 CDT by [facility] CenterGreysoxPiggott Community HospitalOwler, Inc.OfxtaaJUL2083-11-55 21:23:2512 LEAD EKG FOR [facility] Test Date: 9166-87-98Qbg Name: DORA MCNEILL Department: 5520Patient ID: [id number] Room: 8U63Lfmlcs: 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1970 Requested By: KARIN BASSETT AOrder Number: [id number] Reading MD: Chiara Calles MeasurementsIntervals Satin Rate: 72 P: 90PR:157 QRS: 87QRSD: 105 T: 90QT: 360 QTc: 384 Interpretive StatementsSINUS RHYTHMPOSSIBLE RIGHT VENTRICULAR CONDUCTION DELAY [RSR (QR) IN V1/V2]EARLY REPOLARIZATION [ST ELEVATION WITH NORMALLY INFLECTED T- WAVE]Electronically Signed On 01-17-2022 13:02:30 CDT by [facility] Beamz InteractivePiggott Community HospitalMinicom Digital Signage ZtegtzYXL9991-24-02 21:23:2512 LEAD EKG FOR [facility] Test Date: 3895-35-92Prs Name: DORA MCNEILL Department: 5520Patient ID: [id number] Room: 5Q55Tzbenw: 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1970 Requested By: JESSICA AOrder Number: [id number] Reading MD: Chiara Calles MeasurementsIntervals Satin Rate: 72 P: 90PR:157 QRS: 87QRSD: 105 T: 90QT: 360 QTc: 384 Interpretive StatementsSINUS RHYTHMPOSSIBLE RIGHT VENTRICULAR CONDUCTION DELAY [RSR (QR) IN V1/V2]EARLY REPOLARIZATION [ST ELEVATION WITH NORMALLY INFLECTED T- WAVE]Electronically Signed On 01-17-2022 13:02:30 CDT by [facility] EcoSMART TechnologiesChristina [place]ille 35770022-05-26 21:23:2512 LEAD EKG FOR [facility] Test Date: 1489-00-78Lgx Name: DORA MCNEILL Department: 5520Patient ID: [id number] Room: 1K21Djabpx: 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1970 Requested By: KARIN BASSETT AOrder Number: [id number] Reading MD: Chiara Calles MeasurementsIntervals Satin Rate: 72 P: 90PR:157 QRS: 87QRSD: 105 T: 90QT: 360 QTc: 384 Interpretive StatementsSINUS RHYTHMPOSSIBLE RIGHT VENTRICULAR CONDUCTION DELAY [RSR (QR) IN V1/V2]EARLY REPOLARIZATION [ST ELEVATION WITH NORMALLY INFLECTED T- WAVE]Electronically Signed On 01-17-2022 13:02:30 CDT by [facility] CenterGreysoxBryan [place]ille [id number] 21:23:2512 LEAD EKG FOR [facility] Test Date: 8990-62-26Eau Name: DORA DOWNS Department: 5520Patient ID: [id number] Room: 7P36Jhfbwc: 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1970 Requested By: KARIN BASSETT AOrder Number: [id number] Reading MD: Chiara Calles MeasurementsIntervals Satin Rate: 72 P: 90PR: 157 QRS: 87QRSD: 105 T: 90QT: 360 QTc: 384 Interpretive StatementsSINUS RHYTHMPOSSIBLE RIGHT VENTRICULAR CONDUCTION DELAY [RSR (QR) IN V1/V2]EARLY REPOLARIZATION [ST ELEVATION WITH NORMALLY INFLECTED T-W AVE]Electronically Signed On 01-17-2022 13:02:30 CDT by [place] 34236022-05-26 21:23:2512 LEAD EKG FOR [facility] Test Date: 3594-87-94Ksl Name: DORA MCNEILL Department: 5520Patient ID: [id number] Room: 2O84Irqpic: 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1970 Requested By: KARIN BASSETT AOrder Number: [id number] Reading MD: Chiara Calles MeasurementsIntervals Satin Rate: 72 P: 90PR: 157 QRS: 87QRSD: 105 T: 90QT: 360 QTc: 384 Interpretive StatementsSINUS RHYTHMPOSSIBLE RIGHT VENTRICULAR CONDUCTION DELAY [RSR (QR) IN V1/V2]EARLY REPOLARIZATION [ST ELEVATION WITH NORMALLY INFLECTED T- WAVE]Electronically Signed On 01-17-2022 13:02:30 CDT by [facility]ianB[facility] BoxB[place] [address]IelbbxRKY6681-06-09 21:23:2512 LEAD EKG FOR [facility] Test Date: 5598-21-32Rez Name: DORA MCNEILL Department: 5520Patient ID: [id number] Room: 0S03Netwue: 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1970 Requested By: KARIN BASSETT AOrder Number: [id number] Reading MD: Chiara Calles MeasurementsIntervals Satin Rate: 72 P: 90PR: 157 QRS: 87QRSD: 105 T: 90QT: 360 QTc: 384 Interpretive StatementsSINUS RHYTHMPOSSIBLE RIGHT VENTRICULAR CONDUCTION DELAY [RSR (QR) IN V1/V2]EARLY REPOLARIZATION [ST ELEVATION WITH NORMALLY INFLECTED T-W AVE]Electronically Signed On 01-17-2022 13:02:30 CDT by [facility]ianB[facility] BoxB[place] [address]OihpwcVLC1980-26-31 21:23:2512 LEAD EKG FOR [facility] Test Date: 8875-02-85Dtf Name: DORA MCNEILL Department: 5520Patient ID: [id number] Room: 6A78Eswedz: 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1970 Requested By: JESSICA AOrder Number: [id number] Reading MD: Chiara Calles MeasurementsIntervals Satin Rate: 72 P: 90PR: 157 QRS: 87QRSD: 105 T: 90QT: 360 QTc: 384 Interpretive StatementsSINUS RHYTHMPOSSIBLE RIGHT VENTRICULAR CONDUCTION DELAY [RSR (QR) IN V1/V2]EARLY REPOLARIZATION [ST ELEVATION WITH NORMALLY INFLECTED T- WAVE]Electronically Signed On 01-17-2022 13:02:30 CDT by [facility] Beamz InteractiveProvidence Centralia HospitalSuwgkoMZO3526-08-10 21:23:2512 LEAD EKG FOR [facility] Test Date: 8077-46-10Pry Name: DORA PAEZRY Department: 5520Patient ID: [id number] Room: 1H49Cscagj: 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1970 Requested By: KARIN BASSETT AOrder Number: [id number] Reading MD: Chiara Calles MeasurementsIntervals Satin Rate: 72 P: 90PR: 157 QRS: 87QRSD: 105 T: 90QT: 360 QTc: 384 Interpretive StatementsSINUS RHYTHMPOSSIBLE RIGHT VENTRICULAR CONDUCTION DELAY [RSR (QR) IN V1/V2]EARLY REPOLARIZATION [ST ELEVATION WITH NORMALLY INFLECTED T- WAVE]Electronically Signed On 01-17-2022 13:02:30 CDT by [facility] Beamz InteractiveProvidence Centralia HospitalSicprxRGK2069-85-73 21:23:2512 LEAD EKG FOR [facility] Test Date: 0005-98-27Nxn Name: DORA MCNEILL Department: 5520Patient ID: [id number] Room: 9F07Vljmpv: 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1970 Requested By: KARIN BASSETT AOrder Number: [id number] Reading MD: Chiara Calles MeasurementsIntervals Satin Rate: 72 P: 90PR:157 QRS: 87QRSD: 105 T: 90QT: 360 QTc: 384 Interpretive StatementsSINUS RHYTHMPOSSIBLE RIGHT VENTRICULAR CONDUCTION DELAY [RSR (QR) IN V1/V2]EARLY REPOLARIZATION [ST ELEVATION WITH NORMALLY INFLECTED T- WAVE]Electronically Signed On 01-17-2022 13:02:30 CDT by [facility] Beamz InteractiveProvidence Centralia HospitalLpbjxrHZE4014-41-15 21:23:2512 LEAD EKG FOR [facility] Test Date: 1309-58-30Wba Name: DORA MCNEILL Department: 5520Patient ID: [id number] Room: 1O32Rmtdlu: 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1970 Requested By: KARIN BASSETT AOrder Number: [id number] Reading MD: Chiara Calles MeasurementsIntervals Satin Rate: 72 P: 90PR:157 QRS: 87QRSD: 105 T: 90QT: 360 QTc: 384 Interpretive StatementsSINUS RHYTHMPOSSIBLE RIGHT VENTRICULAR CONDUCTION DELAY [RSR (QR) IN V1/V2]EARLY REPOLARIZATION [ST ELEVATION WITH NORMALLY INFLECTED T- WAVE]Electronically Signed On 01-17-2022 13:02:30 CDT by [place]yanvilleEKG2022-05-26 21:23:2512 LEAD EKG FOR [facility] Test Date: 4670-51-70Pec Name: DORA MCNEILL Department: 5520Patient ID: [id number] Room: 7A43Cuchga: 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 (test No code = 77783-8) ICU? (test code = No 97869-9) Symptomatic as No defined by CDC? (test code = 09604-6) Employed in No Healthcare? (test code = 78161-3) Resident in a No congregate care setting (including nursing homes, residential care for people with intellectual and developmental disabilities, psychiatric treatment facilities, group homes, board and care homes, homeless senior care, foster care or other): (test code = 68842-9) SARS-CoV-2 ORF1ab NOT DETECTED Not Detected INTERPRETA TION: No Resp Ql OLENA+probe detectable levels of (test code = SARS-CoV-2 70434-8) Coronavirus (COVID-19) were present in this patient's [...] SARS-CoV-2 mole cular diagnostic assa y utilizes Junior Systems Engineer Mediated Amplification ( TMA) technology to r apidly detect the SARS -CoV-2 (COVID-19) viru s from respiratory adriana ples. In accordance with\\XC2A0\\the FDA's guidance docume nt "Policy for Diagnostic Test s for Coronavirus Disease-2019 du [facility] the Public [facility] Emergency", amalia s test was developed, and its performance characteristics were verified by the [facility] molecular diagn ostics laboratory and is authorized for clinical diagno stic use. \\XC2A0\\Thi s laboratory is certified under the Clinical Labora tory Improvement Amendments (CLI A) as qualified to pe rform high complexity clinical labora tory testing. [facility] CREATININE POC docked albshk2102-32-75 13:57:55 Test Item Value Reference Range Interpretation Comments Creatinine POC (test 2.4 mg/dL 0.6-1.3 H Physici an Notified code = 47560906) eGFR (test code = 30 See_Comment L [Automate d message] 64414987) The system whic h generated this result transmit dain reference range : >=90 mL/min/1.7 3 m2. The reference r meredith was not used to interpret this result as normal/abnormal . eGFR If Am (test 35 See_Comment L [A utomated message] code = 36926266) The system which generated this result transmit dain reference range : >=90 mL/min/1.7 3 m2. The reference r meredith was not used to interpret this result as normal/abnormal . Lab Interpretation (test Abnormal code = 32529-3) [facility] CREATININE POC docked kqnbps0860-06-19 13:57:55 Test Item Value Reference Range Interpretation Comments Creatinine POC (test 2.4 mg/dL 0.6-1.3 H Physici an Notified code = 51962013) eGFR (test code = 30 See_Comment L [Automate d message] 67137892) The system The Dodo generated this result transmit dain reference range : >=90 mL/min/1.7 3 m2. The reference r meredith was not used to interpret this result as normal/abnormal . eGFR If Am (test 35 See_Comment L [A utomated message] code = 22854137) The system which generated this result transmit dain reference range : >=90 mL/min/1.7 3 m2. The reference r meredith was not used to interpret this result as normal/abnormal . Lab Interpretation (test Abnormal code = 06738-1) [facility] CREATININE POC docked geaqqr2510-40-09 13:57:55 Test Item Value Reference Range Interpretation Comments Creatinine POC (test 2.4 mg/dL 0.6-1.3 H Physici an Notified code = 88604413) eGFR (test code = 30 See_Comment L [Automate d message] 32048312) The system The Dodo generated this result transmit dain reference range : >=90 mL/min/1.7 3 m2. The reference r meredith was not used to interpret this result as normal/abnormal . eGFR If Am (test 35 See_Comment L [A utomated message] code = 50777218) The system which generated this result transmit dain reference range : >=90 mL/min/1.7 3 m2. The reference r meredith was not used to interpret this result as normal/abnormal . Lab Interpretation (test Abnormal code = 16355-8) [facility] akiwmj2277-36-69 13:57:55 Test Item Value Reference Range Interpretation Comments Creatinine POC (test 2.4 mg/dL 0.6-1.3 H Physici an Notified code = 36763999) eGFR (test code = 30 See_Comment L [Automate d message] 35605658) The system The Dodo generated this result transmit dain reference range : >=90 mL/min/1.7 3 m2. The reference r meredith was not used to interpret this result as normal/abnormal . eGFR If Am (test 35 See_Comment L [A utomated message] code = 44967599) The system which generated this result transmit dain reference range : >=90 mL/min/1.7 3 m2. The reference r meredith was not used to interpret this result as normal/abnormal . Lab Interpretation (test Abnormal code = 67010-4) [facility] CREATININE POC docked vspnyt4079-42-29 13:57:55 Test Item Value Reference Range Interpretation Comments Creatinine POC (test 2.4 mg/dL 0.6-1.3 H Physici an Notified code = 71053915) eGFR (test code = 30 See_Comment L [Automate d message] 78120312) The system The Dodo generated this result transmit dain reference range : >=90 mL/min/1.7 3 m2. The reference r meredith was not used to interpret this result as normal/abnormal . eGFR If Am (test 35 See_Comment L [A utomated message] code = 35916506) The system which generated this result transmit dain reference range : >=90 mL/min/1.7 3 m2. The reference r meredith was not used to interpret this result as normal/abnormal . Lab Interpretation (test Abnormal code = 12964-7) [facility] CREATININE POC docked galwyj2629-93-05 13:57:55 Test Item Value Reference Range Interpretation Comments Creatinine POC (test 2.4 mg/dL 0.6-1.3 H Physici an Notified code = 06694554) eGFR (test code = 30 See_Comment L [Automate d message] 66644425) The system The Dodo generated this result transmit dain reference range : >=90 mL/min/1.7 3 m2. The reference r meredith was not used to interpret this result as normal/abnormal . eGFR If Am (test 35 See_Comment L [A utomated message] code = 10280453) The system which generated this result transmit dain reference range : >=90 mL/min/1.7 3 m2. The reference r meredith was not used to interpret this result as normal/abnormal . Lab Interpretation (test Abnormal code = 24169-4) [facility] uurhvx5439-36-28 13:57:55 Test Item Value Reference Range Interpretation Comments Creatinine POC (test 2.4 mg/dL 0.6-1.3 H Physici an Notified code = 54848748) eGFR If non- Am 30 See_Comment L [Aut omated message] (test code = 13578163) The s ystem which generated this result transmit dain reference range : >=90 mL/min/1.7 3 m2. The reference r meredith was not used to interpret this result as normal/abnormal . eGFR If Am (test 35 See_Comment L [A utomated message] code = 12071138) The system which generated this result transmit dain reference range : >=90 mL/min/1.7 3 m2. The reference r meredith was not used to interpret this result as normal/abnormal . Lab Interpretation (test Abnormal code = 18333-0) [facility] CREATININE POC docked egyocm6336-48-71 13:57:55 Test Item Value Reference Range Interpretation Comments Creatinine POC (test 2.4 mg/dL 0.6-1.3 H Physici an Notified code = 99925706) eGFR If non- Am 30 See_Comment L [Aut omated message] (test code = 00085060) The s ystem which generated this result transmit dain reference range : >=90 mL/min/1.7 3 m2. The reference r meredith was not used to interpret this result as normal/abnormal . eGFR If Am (test 35 See_Comment L [A utomated message] code = 53762135) The system which generated this result transmit dain reference range : >=90 mL/min/1.7 3 m2. The reference r meredith was not used to interpret this result as normal/abnormal . Lab Interpretation (test Abnormal code = 93234-9) [facility] gdmsji2263-23-65 13:57:55 Test Item Value Reference Range Interpretation Comments Creatinine POC (test 2.4 mg/dL 0.6-1.3 H Physici an Notified code = 71807619) eGFR If non- Am 30 See_Comment L [Aut omated message] (test code = 28517509) The s ystem which generated this result transmit dain reference range : >=90 mL/min/1.7 3 m2. The reference r meredith was not used to interpret this result as normal/abnormal . eGFR If Am (test 35 See_Comment L [A utomated message] code = 88132173) The system which generated this result transmit dain reference range : >=90 mL/min/1.7 3 m2. The reference r meredith was not used to interpret this result as normal/abnormal . Lab Interpretation (test Abnormal code = 80951-2) [facility] CREATININE POC docked rvrzsy8404-37-44 13:57:55 Test Item Value Reference Range Interpretation Comments Creatinine POC (test 2.4 mg/dL 0.6-1.3 H Physici an Notified code = 24620476) eGFR If non- Am 30 See_Comment L [Aut omated message] (test code = 38357603) The s ystem which generated this result transmit dain reference range : >=90 mL/min/1.7 3 m2. The reference r meredith was not used to interpret this result as normal/abnormal . eGFR If Am (test 35 See_Comment L [A utomated message] code = 55688312) The system which generated this result transmit dain reference range : >=90 mL/min/1.7 3 m2. The reference r meredith was not used to interpret this result as normal/abnormal . Lab Interpretation (test Abnormal code = 89353-1) [facility] CREATININE POC docked [id number] 13:57:55 Test Item Value Reference Range Interpretation Comments Creatinine POC (test 2.4 mg/dL 0.6-1.3 H Physici an Notified code = 68780504) eGFR If non- Am 30 See_Comment L [Aut omated message] (test code = 45518348) The s ystem which generated this result transmit dain reference range : >=90 mL/min/1.7 3 m2. The reference r meredith was not used to interpret this result as normal/abnormal . eGFR If Am (test 35 See_Comment L [A utomated message] code = 84626651) The system which generated this result transmit dain reference range : >=90 mL/min/1.7 3 m2. The reference r meredith was not used to interpret this result as normal/abnormal . Lab Interpretation (test Abnormal code = 34930-0) [facility] CREATININE POC docked [id number] 13:57:55 Test Item Value Reference Range Interpretation Comments Creatinine POC (test 2.4 mg/dL 0.6-1.3 H Physici an Notified code = 42365190) eGFR If non- Am 30 See_Comment L [Aut omated message] (test code = 04129687) The s ystem which generated this result transmit dain reference range : >=90 mL/min/1.7 3 m2. The reference r meredith was not used to interpret this result as normal/abnormal . eGFR If Am (test 35 See_Comment L [A utomated message] code = 74211633) The system which generated this result transmit dain reference range : >=90 mL/min/1.7 3 m2. The reference r meredith was not used to interpret this result as normal/abnormal . Lab Interpretation (test Abnormal code = 90417-6) [facility] CREATININE POC docked [id number] 13:57:55 Test Item Value Reference Range Interpretation Comments Creatinine POC (test 2.4 mg/dL 0.6-1.3 H Physici an Notified code = 41907703) eGFR If non- Am 30 See_Comment L [Aut omated message] (test code = 70622138) The s ystem which generated this result transmit dain reference range : >=90 mL/min/1.7 3 m2. The reference r meredith was not used to interpret this result as normal/abnormal . eGFR If Am (test 35 See_Comment L [A utomated message] code = 94098946) The system which generated this result transmit dain reference range : >=90 mL/min/1.7 3 m2. The reference r meredith was not used to interpret this result as normal/abnormal . Lab Interpretation (test Abnormal code = 13119-9) [facility] CREATININE POC docked [id number] 13:57:55 Test Item Value Reference Range Interpretation Comments Creatinine POC (test 2.4 mg/dL 0.6-1.3 H Physici an Notified code = 96077708) eGFR If non- Am 30 See_Comment L [Aut omated message] (test code = 69377575) The s ystem which generated this result transmit dain reference range : >=90 mL/min/1.7 3 m2. The reference r meredith was not used to interpret this result as normal/abnormal . eGFR If Am (test 35 See_Comment L [A utomated message] code = 91905434) The system which generated this result transmit dain reference range : >=90 mL/min/1.7 3 m2. The reference r meredith was not used to interpret this result as normal/abnormal . Lab Interpretation (test Abnormal code = 86586-7) [facility] CREATININE POC docked [id number] 13:57:55 Test Item Value Reference Range Interpretation Comments Creatinine POC (test 2.4 mg/dL 0.6-1.3 H Physici an Notified code = 72128433) eGFR If non- Am 30 See_Comment L [Aut omated message] (test code = 96752751) The s ystem which generated this result transmit dain reference range : >=90 mL/min/1.7 3 m2. The reference r meredith was not used to interpret this result as normal/abnormal . eGFR If Am (test 35 See_Comment L [A utomated message] code = 84479815) The system which generated this result transmit dain reference range : >=90 mL/min/1.7 3 m2. The reference r meredith was not used to interpret this result as normal/abnormal . Lab Interpretation (test Abnormal code = 27706-6) [facility] CREATININE POC docked [id number] 13:57:55 Test Item Value Reference Range Interpretation Comments Creatinine POC (test 2.4 mg/dL 0.6-1.3 H Physici an Notified code = 92728042) eGFR If non- Am 30 See_Comment L [Aut omated message] (test code = 39142678) The s ystem which generated this result transmit dain reference range : >=90 mL/min/1.7 3 m2. The reference r meredith was not used to interpret this result as normal/abnormal . eGFR If Am (test 35 See_Comment L [A utomated message] code = 00536555) The system which generated this result transmit dain reference range : >=90 mL/min/1.7 3 m2. The reference r meredith was not used to interpret this result as normal/abnormal . Lab Interpretation (test Abnormal code = 32360-5) [facility] [id number] 13:57:55 Test Item Value Reference Range Interpretation Comments Creatinine POC (test 2.4 mg/dL 0.6-1.3 H Physici an Notified code = 08572334) eGFR If non- Am 30 See_Comment L [Aut omated message] (test code = 29376095) The s ystem which generated this result transmit dain reference range : >=90 mL/min/1.7 3 m2. The reference r meredith was not used to interpret this result as normal/abnormal . eGFR If Am (test 35 See_Comment L [A utomated message] code = 90371743) The system which generated this result transmit dain reference range : >=90 mL/min/1.7 3 m2. The reference r meredith was not used to interpret this result as normal/abnormal . Lab Interpretation (test Abnormal code = 79587-1) [facility] [id number] 13:57:55 Test Item Value Reference Range Interpretation Comments Creatinine POC (test 2.4 mg/dL 0.6-1.3 H Physici an Notified code = 59584363) eGFR If non- Am 30 See_Comment L [Aut omated message] (test code = 16654466) The s ystem which generated this result transmit dain reference range : >=90 mL/min/1.7 3 m2. The reference r meredith was not used to interpret this result as normal/abnormal . eGFR If Am (test 35 See_Comment L [A utomated message] code = 05944915) The system which generated this result transmit dain reference range : >=90 mL/min/1.7 3 m2. The reference r meredith was not used to interpret this result as normal/abnormal . Lab Interpretation (test Abnormal code = 11629-7) [facility] [id number] 13:57:55 Test Item Value Reference Range Interpretation Comments Creatinine POC (test 2.4 mg/dL 0.6-1.3 H Physici an Notified code = 57850638) eGFR If non- Am 30 See_Comment L [Aut omated message] (test code = 14647731) The s ystem which generated this result transmit dain reference range : >=90 mL/min/1.7 3 m2. The reference r meredith was not used to interpret this result as normal/abnormal . eGFR If Am (test 35 See_Comment L [A utomated message] code = 14300223) The system which generated this result transmit dain reference range : >=90 mL/min/1.7 3 m2. The reference r meredith was not used to interpret this result as normal/abnormal . Lab Interpretation (test Abnormal code = 94393-2) [facility] CREATININE POC docked [id number] 13:57:55 Test Item Value Reference Range Interpretation Comments Creatinine POC (test 2.4 mg/dL 0.6-1.3 H Physici an Notified code = 72964973) eGFR If non- Am 30 See_Comment L [Aut omated message] (test code = 15880684) The s ystem which generated this result transmit dain reference range : >=90 mL/min/1.7 3 m2. The reference r meredith was not used to interpret this result as normal/abnormal . eGFR If Am (test 35 See_Comment L [A utomated message] code = 15947987) The system which generated this result transmit dain reference range : >=90 mL/min/1.7 3 m2. The reference r meredith was not used to interpret this result as normal/abnormal . Lab Interpretation (test Abnormal code = 58022-3) [facility] CREATININE POC docked [id number] 13:57:55 Test Item Value Reference Range Interpretation Comments Creatinine POC (test 2.4 mg/dL 0.6-1.3 H Physici an Notified code = 17269165) eGFR If non- Am 30 See_Comment L [Aut omated message] (test code = 11619277) The s ystem which generated this result transmit dain reference range : >=90 mL/min/1.7 3 m2. The reference r meredith was not used to interpret this result as normal/abnormal . eGFR If Am (test 35 See_Comment L [A utomated message] code = 84965732) The system which generated this result transmit dain reference range : >=90 mL/min/1.7 3 m2. The reference r meredith was not used to interpret this result as normal/abnormal . Lab Interpretation (test Abnormal code = 94873-2) [facility] CREATININE POC docked [id number] 13:57:55 Test Item Value Reference Range Interpretation Comments Creatinine POC (test 2.4 mg/dL 0.6-1.3 H Physici an Notified code = 52837073) eGFR (test code = 30 See_Comment L [Automate d message] 23476513) The system The [employer] generated this result transmit dain reference range : >=90 mL/min/1.7 3 m2. The reference r meredith was not used to interpret this result as normal/abnormal . eGFR If Am (test 35 See_Comment L [A utomated message] code = 05469356) The system which generated this result transmit dain reference range : >=90 mL/min/1.7 3 m2. The reference r meredith was not used to interpret this result as normal/abnormal . Lab Interpretation (test Abnormal code = 22129-1) [facility] CREATININE POC docked [id number] 13:57:55 Test Item Value Reference Range Interpretation Comments Creatinine POC (test 2.4 mg/dL 0.6-1.3 H Physici an Notified code = 77976557) eGFR (test code = 30 See_Comment L [Automate d message] 50768117) The system The [employer] generated this result transmit dain reference range : >=90 mL/min/1.7 3 m2. The reference r meredith was not used to interpret this result as normal/abnormal . eGFR If Am (test 35 See_Comment L [A utomated message] code = 32412636) The system which generated this result transmit dain reference range : >=90 mL/min/1.7 3 m2. The reference r meredith was not used to interpret this result as normal/abnormal . Lab Interpretation (test Abnormal code = 34529-7) [facility] BMP POC docked [id number] 13:48:46 Test Item Value Reference Range Interpretation Comments Sodium POC (test code = 126 mmol/L 136-145 L 60299607) Potassium POC (test code 4.4 mmol/L 3.5-5.1 = 45881476) Chloride POC (test code 100 mmol/L 98-107 = 03826221) TCO2 POC (test code = 17 mmol/L 21-32 L Physic aylin Notified 27395697) Urea Nitrogen POC (test 36 mg/dL 7-18 H code = 47784017) Glucose POC (test code = 114 mg/dL 74-106 H 08214305) Hemoglobin POC (test 11.9 g/dL 12-16 L code = 95881399) Hematocrit POC (test 35.0 % 37.0-47.0 L code = 39069204) Lab Interpretation (test Abnormal code = 15727-6) [facility] POC docked [id number] 13:48:46 Test Item Value Reference Range Interpretation Comments Sodium POC (test code = 126 mmol/L 136-145 L 11552432) Potassium POC (test code 4.4 mmol/L 3.5-5.1 = 83353395) Chloride POC (test code 100 mmol/L 98-107 = 27218433) TCO2 POC (test code = 17 mmol/L 21-32 L Physic aylin Notified 51995564) Urea Nitrogen POC (test 36 mg/dL 7-18 H code = 42581579) Glucose POC (test code = 114 mg/dL 74-106 H 27726496) Hemoglobin POC (test 11.9 g/dL 12-16 L code = 39940735) Hematocrit POC (test 35.0 % 37.0-47.0 L code = 35160376) Lab Interpretation (test Abnormal code = 70260-5) [facility] POC docked [id number] 13:48:46 Test Item Value Reference Range Interpretation Comments Sodium POC (test code = 126 mmol/L 136-145 L 30080112) Potassium POC (test code 4.4 mmol/L 3.5-5.1 = 02008294) Chloride POC (test code 100 mmol/L 98-107 = 00349781) TCO2 POC (test code = 17 mmol/L 21-32 L Physic aylin Notified 27136923) Urea Nitrogen POC (test 36 mg/dL 7-18 H code = 92187044) Glucose POC (test code = 114 mg/dL 74-106 H 44406084) Hemoglobin POC (test 11.9 g/dL 12-16 L code = 87019336) Hematocrit POC (test 35.0 % 37.0-47.0 L code = 85687013) Lab Interpretation (test Abnormal code = 62324-8) [facility] POC docked [id number] 13:48:46 Test Item Value Reference Range Interpretation Comments Sodium POC (test code = 126 mmol/L 136-145 L 67685763) Potassium POC (test code 4.4 mmol/L 3.5-5.1 = 13096736) Chloride POC (test code 100 mmol/L 98-107 = 97805080) TCO2 POC (test code = 17 mmol/L 21-32 L Physic aylin Notified 26352201) Urea Nitrogen POC (test 36 mg/dL 7-18 H code = 47859620) Glucose POC (test code = 114 mg/dL 74-106 H 55957009) Hemoglobin POC (test 11.9 g/dL 12-16 L code = 22325538) Hematocrit POC (test 35.0 % 37.0-47.0 L code = 19581681) Lab Interpretation (test Abnormal code = 00657-5) [facility] POC docked [id number] 13:48:46 Test Item Value Reference Range Interpretation Comments Sodium POC (test code = 126 mmol/L 136-145 L 07655633) Potassium POC (test code 4.4 mmol/L 3.5-5.1 = 92138723) Chloride POC (test code 100 mmol/L 98-107 = 53989524) TCO2 POC (test code = 17 mmol/L 21-32 L Physic aylin Notified 27788366) Urea Nitrogen POC (test 36 mg/dL 7-18 H code = 26398462) Glucose POC (test code = 114 mg/dL 74-106 H 24415913) Hemoglobin POC (test 11.9 g/dL 12-16 L code = 47612255) Hematocrit POC (test 35.0 % 37.0-47.0 L code = 01827621) Lab Interpretation (test Abnormal code = 01501-8) [facility] POC docked [id number] 13:48:46 Test Item Value Reference Range Interpretation Comments Sodium POC (test code = 126 mmol/L 136-145 L 29688923) Potassium POC (test code 4.4 mmol/L 3.5-5.1 = 65348626) Chloride POC (test code 100 mmol/L 98-107 = 47283166) TCO2 POC (test code = 17 mmol/L 21-32 L Physic aylin Notified 96377876) Urea Nitrogen POC (test 36 mg/dL 7-18 H code = 95762827) Glucose POC (test code = 114 mg/dL 74-106 H 27170887) Hemoglobin POC (test 11.9 g/dL 12-16 L code = 11427413) Hematocrit POC (test 35.0 % 37.0-47.0 L code = 80023430) Lab Interpretation (test Abnormal code = 31929-9) [facility] POC docked [id number] 13:48:46 Test Item Value Reference Range Interpretation Comments Sodium POC (test code = 126 mmol/L 136-145 L 38052085) Potassium POC (test code 4.4 mmol/L 3.5-5.1 = 49934908) Chloride POC (test code 100 mmol/L 98-107 = 04306777) TCO2 POC (test code = 17 mmol/L 21-32 L Physic aylin Notified 10195298) Urea Nitrogen POC (test 36 mg/dL 7-18 H code = 28663667) Glucose POC (test code = 114 mg/dL 74-106 H 73208767) Hemoglobin POC (test 11.9 g/dL 12-16 L code = 14100123) Hematocrit POC (test 35.0 % 37.0-47.0 L code = 56557707) Lab Interpretation (test Abnormal code = 69315-5) [facility] POC docked [id number] 13:48:46 Test Item Value Reference Range Interpretation Comments Sodium POC (test code = 126 mmol/L 136-145 L 51831916) Potassium POC (test code 4.4 mmol/L 3.5-5.1 = 75924382) Chloride POC (test code 100 mmol/L 98-107 = 01488446) TCO2 POC (test code = 17 mmol/L 21-32 L Physic aylin Notified 99437680) Urea Nitrogen POC (test 36 mg/dL 7-18 H code = 04153351) Glucose POC (test code = 114 mg/dL 74-106 H 41622491) Hemoglobin POC (test 11.9 g/dL 12-16 L code = 10897712) Hematocrit POC (test 35.0 % 37.0-47.0 L code = 01532140) Lab Interpretation (test Abnormal code = 34056-5) [facility] POC docked [id number] 13:48:46 Test Item Value Reference Range Interpretation Comments Sodium POC (test code = 126 mmol/L 136-145 L 86858235) Potassium POC (test code 4.4 mmol/L 3.5-5.1 = 06593182) Chloride POC (test code 100 mmol/L 98-107 = 77847546) TCO2 POC (test code = 17 mmol/L 21-32 L Physic aylin Notified 61288420) Urea Nitrogen POC (test 36 mg/dL 7-18 H code = 93769954) Glucose POC (test code = 114 mg/dL 74-106 H 00595047) Hemoglobin POC (test 11.9 g/dL 12-16 L code = 78017597) Hematocrit POC (test 35.0 % 37.0-47.0 L code = 12053322) Lab Interpretation (test Abnormal code = 93555-0) [facility] POC docked [id number] 13:48:46 Test Item Value Reference Range Interpretation Comments Sodium POC (test code = 126 mmol/L 136-145 L 33836833) Potassium POC (test code 4.4 mmol/L 3.5-5.1 = 67110220) Chloride POC (test code 100 mmol/L 98-107 = 74186968) TCO2 POC (test code = 17 mmol/L 21-32 L Physic aylin Notified 70009462) Urea Nitrogen POC (test 36 mg/dL 7-18 H code = 37839149) Glucose POC (test code = 114 mg/dL 74-106 H 82313431) Hemoglobin POC (test 11.9 g/dL 12-16 L code = 01178820) Hematocrit POC (test 35.0 % 37.0-47.0 L code = 36793401) Lab Interpretation (test Abnormal code = 24364-3) [facility] POC docked [id number] 13:48:46 Test Item Value Reference Range Interpretation Comments Sodium POC (test code = 126 mmol/L 136-145 L 25967745) Potassium POC (test code 4.4 mmol/L 3.5-5.1 = 74105474) Chloride POC (test code 100 mmol/L 98-107 = 18661544) TCO2 POC (test code = 17 mmol/L 21-32 L Physic aylin Notified 16972952) Urea Nitrogen POC (test 36 mg/dL 7-18 H code = 39007515) Glucose POC (test code = 114 mg/dL 74-106 H 47880013) Hemoglobin POC (test 11.9 g/dL 12-16 L code = 00399296) Hematocrit POC (test 35.0 % 37.0-47.0 L code = 63976106) Lab Interpretation (test Abnormal code = 85702-3) [facility] POC docked [id number] 13:48:46 Test Item Value Reference Range Interpretation Comments Sodium POC (test code = 126 mmol/L 136-145 L 40827032) Potassium POC (test code 4.4 mmol/L 3.5-5.1 = 82507538) Chloride POC (test code 100 mmol/L 98-107 = 51036409) TCO2 POC (test code = 17 mmol/L 21-32 L Physic aylin Notified 89946293) Urea Nitrogen POC (test 36 mg/dL 7-18 H code = 03152402) Glucose POC (test code = 114 mg/dL 74-106 H 98701054) Hemoglobin POC (test 11.9 g/dL 12-16 L code = 75269586) Hematocrit POC (test 35.0 % 37.0-47.0 L code = 15538712) Lab Interpretation (test Abnormal code = 28657-8) [facility] POC docked [id number] 13:48:46 Test Item Value Reference Range Interpretation Comments Sodium POC (test code = 126 mmol/L 136-145 L 81316388) Potassium POC (test code 4.4 mmol/L 3.5-5.1 = 08452395) Chloride POC (test code 100 mmol/L 98-107 = 87180677) TCO2 POC (test code = 17 mmol/L 21-32 L Physic aylin Notified 63589127) Urea Nitrogen POC (test 36 mg/dL 7-18 H code = 58854793) Glucose POC (test code = 114 mg/dL 74-106 H 01553480) Hemoglobin POC (test 11.9 g/dL 12-16 L code = 11980125) Hematocrit POC (test 35.0 % 37.0-47.0 L code = 53022270) Lab Interpretation (test Abnormal code = 41336-1) [facility] BMP POC docked [id number] 13:48:46 Test Item Value Reference Range Interpretation Comments Sodium POC (test code = 126 mmol/L 136-145 L 07848735) Potassium POC (test code 4.4 mmol/L 3.5-5.1 = 42053843) Chloride POC (test code 100 mmol/L 98-107 = 55846886) TCO2 POC (test code = 17 mmol/L 21-32 L Physic aylin Notified 62190793) Urea Nitrogen POC (test 36 mg/dL 7-18 H code = 76685114) Glucose POC (test code = 114 mg/dL 74-106 H 43900484) Hemoglobin POC (test 11.9 g/dL 12-16 L code = 85540645) Hematocrit POC (test 35.0 % 37.0-47.0 L code = 34826580) Lab Interpretation (test Abnormal code = 60878-3) [facility] BMP POC docked [id number] 13:48:46 Test Item Value Reference Range Interpretation Comments Sodium POC (test code = 126 mmol/L 136-145 L 42194737) Potassium POC (test code 4.4 mmol/L 3.5-5.1 = 64067200) Chloride POC (test code 100 mmol/L 98-107 = 28198185) TCO2 POC (test code = 17 mmol/L 21-32 L Physic aylin Notified 40243966) Urea Nitrogen POC (test 36 mg/dL 7-18 H code = 04798132) Glucose POC (test code = 114 mg/dL 74-106 H 57861478) Hemoglobin POC (test 11.9 g/dL 12-16 L code = 59044499) Hematocrit POC (test 35.0 % 37.0-47.0 L code = 20737538) Lab Interpretation (test Abnormal code = 78733-6) [facility] POC docked [id number] 13:48:46 Test Item Value Reference Range Interpretation Comments Sodium POC (test code = 126 mmol/L 136-145 L 35751862) Potassium POC (test code 4.4 mmol/L 3.5-5.1 = 43161332) Chloride POC (test code 100 mmol/L 98-107 = 74603767) TCO2 POC (test code = 17 mmol/L 21-32 L Physic aylin Notified 86305835) Urea Nitrogen POC (test 36 mg/dL 7-18 H code = 31141701) Glucose POC (test code = 114 mg/dL 74-106 H 42187630) Hemoglobin POC (test 11.9 g/dL 12-16 L code = 40167727) Hematocrit POC (test 35.0 % 37.0-47.0 L code = 77668668) Lab Interpretation (test Abnormal code = 55267-8) [facility] POC docked [id number] 13:48:46 Test Item Value Reference Range Interpretation Comments Sodium POC (test code = 126 mmol/L 136-145 L 67076150) Potassium POC (test code 4.4 mmol/L 3.5-5.1 = 14739614) Chloride POC (test code 100 mmol/L 98-107 = 18232941) TCO2 POC (test code = 17 mmol/L 21-32 L Physic aylin Notified 09468985) Urea Nitrogen POC (test 36 mg/dL 7-18 H code = 56771444) Glucose POC (test code = 114 mg/dL 74-106 H 59558233) Hemoglobin POC (test 11.9 g/dL 12-16 L code = 69605199) Hematocrit POC (test 35.0 % 37.0-47.0 L code = 08990098) Lab Interpretation (test Abnormal code = 34965-7) [facility] POC docked [id number] 13:48:46 Test Item Value Reference Range Interpretation Comments Sodium POC (test code = 126 mmol/L 136-145 L 58049441) Potassium POC (test code 4.4 mmol/L 3.5-5.1 = 08222921) Chloride POC (test code 100 mmol/L 98-107 = 23421510) TCO2 POC (test code = 17 mmol/L 21-32 L Physic aylin Notified 46508957) Urea Nitrogen POC (test 36 mg/dL 7-18 H code = 86914586) Glucose POC (test code = 114 mg/dL 74-106 H 38496748) Hemoglobin POC (test 11.9 g/dL 12-16 L code = 16182573) Hematocrit POC (test 35.0 % 37.0-47.0 L code = 16829601) Lab Interpretation (test Abnormal code = 99474-3) [facility] POC docked [id number] 13:48:46 Test Item Value Reference Range Interpretation Comments Sodium POC (test code = 126 mmol/L 136-145 L 87152944) Potassium POC (test code 4.4 mmol/L 3.5-5.1 = 87187583) Chloride POC (test code 100 mmol/L 98-107 = 09371768) TCO2 POC (test code = 17 mmol/L 21-32 L Physic aylin Notified 00976890) Urea Nitrogen POC (test 36 mg/dL 7-18 H code = 33253014) Glucose POC (test code = 114 mg/dL 74-106 H 50741342) Hemoglobin POC (test 11.9 g/dL 12-16 L code = 12909837) Hematocrit POC (test 35.0 % 37.0-47.0 L code = 22412569) Lab Interpretation (test Abnormal code = 89378-1) [facility] BMP POC docked [id number] 13:48:46 Test Item Value Reference Range Interpretation Comments Sodium POC (test code = 126 mmol/L 136-145 L 09261422) Potassium POC (test code 4.4 mmol/L 3.5-5.1 = 61345403) Chloride POC (test code 100 mmol/L 98-107 = 10495556) TCO2 POC (test code = 17 mmol/L 21-32 L Physic aylin Notified 54340246) Urea Nitrogen POC (test 36 mg/dL 7-18 H code = 70790487) Glucose POC (test code = 114 mg/dL 74-106 H 03736995) Hemoglobin POC (test 11.9 g/dL 12-16 L code = 64627319) Hematocrit POC (test 35.0 % 37.0-47.0 L code = 67122784) Lab Interpretation (test Abnormal code = 20814-5) [facility] POC docked [id number] 13:48:46 Test Item Value Reference Range Interpretation Comments Sodium POC (test code = 126 mmol/L 136-145 L 16119285) Potassium POC (test code 4.4 mmol/L 3.5-5.1 = 43818615) Chloride POC (test code 100 mmol/L 98-107 = 32264232) TCO2 POC (test code = 17 mmol/L 21-32 L Physic aylin Notified 80956360) Urea Nitrogen POC (test 36 mg/dL 7-18 H code = 47326638) Glucose POC (test code = 114 mg/dL 74-106 H 69895387) Hemoglobin POC (test 11.9 g/dL 12-16 L code = 13317817) Hematocrit POC (test 35.0 % 37.0-47.0 L code = 69221768) Lab Interpretation (test Abnormal code = 96368-2) [facility] POC docked [id number] 13:48:46 Test Item Value Reference Range Interpretation Comments Sodium POC (test code = 126 mmol/L 136-145 L 10744840) Potassium POC (test code 4.4 mmol/L 3.5-5.1 = 95214072) Chloride POC (test code 100 mmol/L 98-107 = 35192163) TCO2 POC (test code = 17 mmol/L 21-32 L Physic aylin Notified 29664785) Urea Nitrogen POC (test 36 mg/dL 7-18 H code = 66855463) Glucose POC (test code = 114 mg/dL 74-106 H 67059277) Hemoglobin POC (test 11.9 g/dL 12-16 L code = 69917247) Hematocrit POC (test 35.0 % 37.0-47.0 L code = 66711148) Lab Interpretation (test Abnormal code = 27077-2) [facility] BMP POC docked [id number] 13:48:46 Test Item Value Reference Range Interpretation Comments Sodium POC (test code = 126 mmol/L 136-145 L 15355811) Potassium POC (test code 4.4 mmol/L 3.5-5.1 = 49159342) Chloride POC (test code 100 mmol/L 98-107 = 80399882) TCO2 POC (test code = 17 mmol/L 21-32 L Physic aylin Notified 90008024) Urea Nitrogen POC (test 36 mg/dL 7-18 H code = 54362146) Glucose POC (test code = 114 mg/dL 74-106 H 67155097) Hemoglobin POC (test 11.9 g/dL 12-16 L code = 58401800) Hematocrit POC (test 35.0 % 37.0-47.0 L code = 91013780) Lab Interpretation (test Abnormal code = 37833-0) [facility] OLENA+[id number] 20:25:16 Test Item Value Reference Range Interpretation Comments Hospitalized? (test No code = 81589-1) ICU? (test code = No 68389-2) Symptomatic as No defined by CDC? (test code = 81367-9) Employed in No Healthcare? (test code = 33037-1) Resident in a No congregate care setting (including nursing homes, residential care for people with intellectual and developmental disabilities, psychiatric treatment facilities, group homes, board and care homes, homeless senior care, foster care or other): (test code = 59698-4) SARS-CoV-2 ORF1ab NOT DETECTED Not Detected INTERPRETA TION: No Resp Ql OLENA+probe detectable levels of (test code = SARS-CoV-2 57836-5) Coronavirus (COVID-19) were present in this patient's [...] SARS-CoV-2 mole cular diagnostic assa y utilizes [employer] Mediated Amplification ( TMA) technology to r apidly detect the SARS -CoV-2 (COVID-19) viru s from respiratory adriana ples. In accordance with\\XC2A0\\the FDA's guidance docume nt "Policy for Diagnostic Test s for Coronavirus Disease-2019 [facility] the [facility]", amalia s test was developed, and its performance characteristics were verified by the [facility] molecular diagn ostics laboratory and is authorized for clinical diagno stic use. \\[id number]\\Thi s laboratory is certified under the Clinical Labora tory Improvement Amendments (CLI A) as qualified to pe rform high complexity clinical labora tory testing. [facility] POC docked [id number] 11:16:15 Test Item Value Reference Range Interpretation Comments pH, Pankaj POC (test code 7.32 7.33-7.43 L = 01268675) pCO2,Pankaj POC (test code 31.0 See_Comment L [Au tomated = 65261065) message] The sy stem which generated this result transmitted reference range : 38 - 50 mmHg. The reference range was not used to interpret this result as normal/abnormal . PO2, Venous POC (BKR) 44 See_Comment L [Auto mated (test code = 04983474) messa ge] The system which generated this result transmitted reference range : 50 - 75 mm Hg. The reference range was not used to interpret this result as normal/abnormal . Ionized Calcium POC 1.24 mmol/L 1.15-1.29 (test code = 36583135) HCO3, Pankaj POC (test 16 mmol/L 22-26 L code = 70220137) TCO2 POC (test code = 17 mmol/L 21-32 L 26815945) Base Deficit, Pankaj POC -9 (test code = 36433591) Sample Type (test code IVEN Physi erik Notified = 05133829) % Sat, Pankaj POC (test 77 % code = 54701487) Lab Interpretation Abnormal (test code = 81886-7) [facility] P[facility] docked [id number] 11:16:15 Test Item Value Reference Range Interpretation Comments pH, Pankaj POC (test code 7.32 7.33-7.43 L = 73572302) pCO2,Pankaj POC (test code 31.0 See_Comment L [Au tomated = 79606107) message] The sy stem which generated this result transmitted reference range : 38 - 50 mmHg. The reference range was not used to interpret this result as normal/abnormal . PO2, Venous POC (BKR) 44 See_Comment L [Auto mated (test code = 75674006) [employer]] The system which generated this result transmitted reference range : 50 - 75 mm Hg. The reference range was not used to interpret this result as normal/abnormal . Ionized Calcium POC 1.24 mmol/L 1.15-1.29 (test code = 37759098) HCO3, Pankaj POC (test 16 mmol/L 22-26 L code = 78216124) TCO2 POC (test code = 17 mmol/L 21-32 L 87906256) Base Deficit, Pankaj POC -9 (test code = 72355264) Sample Type (test code STEPAN Physi erik Notified = 61157890) % Sat, Pankaj POC (test 77 % code = 99458804) Lab Interpretation Abnormal (test code = 92508-5) [facility] POC docked [id number] 11:16:15 Test Item Value Reference Range Interpretation Comments pH, Pankaj POC (test code 7.32 7.33-7.43 L = 59797731) pCO2,Pankaj POC (test code 31.0 See_Comment L [Au tomated = 35520882) message] The sy stem which generated this result transmitted reference range : 38 - 50 mmHg. The reference range was not used to interpret this result as normal/abnormal . PO2, Venous POC (BKR) 44 See_Comment L [Auto mated (test code = 48597910) [employer]] The system which generated this result transmitted reference range : 50 - 75 mm Hg. The reference range was not used to interpret this result as normal/abnormal . Ionized Calcium POC 1.24 mmol/L 1.15-1.29 (test code = 73116861) HCO3, Pankaj POC (test 16 mmol/L 22-26 L code = 54574271) TCO2 POC (test code = 17 mmol/L 21-32 L 02459306) Base Deficit, Pankaj POC -9 (test code = 52399105) Sample Type (test code STEPAN valencia Notified = 24765902) % Sat, Pankaj POC (test 77 % code = 44529057) Lab Interpretation Abnormal (test code = 81109-9) [facility] POC docked [id number] 11:16:15 Test Item Value Reference Range Interpretation Comments pH, Pankaj POC (test code 7.32 7.33-7.43 L = 45147018) pCO2,Pankaj POC (test code 31.0 See_Comment L [Au tomated = 39621094) message] The sy stem which generated this result transmitted reference range : 38 - 50 mmHg. The reference range was not used to interpret this result as normal/abnormal . PO2, Venous POC (BKR) 44 See_Comment L [Auto mated (test code = 14507818) messa ge] The system which generated this result transmitted reference range : 50 - 75 mm Hg. The reference range was not used to interpret this result as normal/abnormal . Ionized Calcium POC 1.24 mmol/L 1.15-1.29 (test code = 62976041) HCO3, Pankaj POC (test 16 mmol/L 22-26 L code = 10122605) TCO2 POC (test code = 17 mmol/L 21-32 L 82026531) Base Deficit, Pankaj POC -9 (test code = 55267825) Sample Type (test code STEPAN valencia Notified = 48468346) % Sat, Pankaj POC (test 77 % code = 72279695) Lab Interpretation Abnormal (test code = 51303-7) [facility] POC docked [id number] 11:16:15 Test Item Value Reference Range Interpretation Comments pH, Pankaj POC (test code 7.32 7.33-7.43 L = 60629843) pCO2,Pankaj POC (test code 31.0 See_Comment L [Au tomated = 45715701) message] The sy stem which generated this result transmitted reference range : 38 - 50 mmHg. The reference range was not used to interpret this result as normal/abnormal . PO2, Venous POC (BKR) 44 See_Comment L [Auto mated (test code = 48585241) messa ge] The system which generated this result transmitted reference range : 50 - 75 mm Hg. The reference range was not used to interpret this result as normal/abnormal . Ionized Calcium POC 1.24 mmol/L 1.15-1.29 (test code = 28025290) HCO3, Pankaj POC (test 16 mmol/L 22-26 L code = 70336326) TCO2 POC (test code = 17 mmol/L 21-32 L 38106267) Base Deficit, Pankaj POC -9 (test code = 41479372) Sample Type (test code IVJESSICA Physi erik Notified = 55636912) % Sat, Pankaj POC (test 77 % code = 97331604) Lab Interpretation Abnormal (test code = 85279-1) [facility] POC docked [id number] 11:16:15 Test Item Value Reference Range Interpretation Comments pH, Pankaj POC (test code 7.32 7.33-7.43 L = 31454292) pCO2,Pankaj POC (test code 31.0 See_Comment L [Au tomated = 66911536) message] The sy stem which generated this result transmitted reference range : 38 - 50 mmHg. The reference range was not used to interpret this result as normal/abnormal . PO2, Venous POC (BKR) 44 See_Comment L [Auto mated (test code = 49741140) [employer]] The system which generated this result transmitted reference range : 50 - 75 mm Hg. The reference range was not used to interpret this result as normal/abnormal . Ionized Calcium POC 1.24 mmol/L 1.15-1.29 (test code = 28652763) HCO3, Pankaj POC (test 16 mmol/L 22-26 L code = 00325042) TCO2 POC (test code = 17 mmol/L 21-32 L 10269959) Base Deficit, Pankaj POC -9 (test code = 66407795) Sample Type (test code IVEN Physi erik Notified = 91763697) % Sat, Pankaj POC (test 77 % code = 76652593) Lab Interpretation Abnormal (test code = 54954-3) [facility] [id number] 11:16:15 Test Item Value Reference Range Interpretation Comments pH, Pankaj POC (test code 7.32 7.33-7.43 L = 44718621) pCO2,Pankaj POC (test code 31.0 See_Comment L [Au tomated = 55484190) message] The sy stem which generated this result transmitted reference range : 38 - 50 mmHg. The reference range was not used to interpret this result as normal/abnormal . PO2, Venous POC (BKR) 44 See_Comment L [Auto mated (test code = 39013958) messa ge] The system which generated this result transmitted reference range : 50 - 75 mm Hg. The reference range was not used to interpret this result as normal/abnormal . Ionized Calcium POC 1.24 mmol/L 1.15-1.29 (test code = 57772333) HCO3, Pankaj POC (test 16 mmol/L 22-26 L code = 63680933) TCO2 POC (test code = 17 mmol/L 21-32 L 76015678) Base Deficit, Pankaj POC -9 (test code = 49227326) Sample Type (test code IVEN Physi erik Notified = 67286661) % Sat, Pankaj POC (test 77 % code = 15610845) Lab Interpretation Abnormal (test code = 88403-3) [facility] POC docked [id number] 11:16:15 Test Item Value Reference Range Interpretation Comments pH, Pankaj POC (test code 7.32 7.33-7.43 L = 90910747) pCO2,Pankaj POC (test code 31.0 See_Comment L [Au tomated = 27209454) message] The sy stem which generated this result transmitted reference range : 38 - 50 mmHg. The reference range was not used to interpret this result as normal/abnormal . PO2, Venous POC (BKR) 44 See_Comment L [Auto mated (test code = 46738648) messa ge] The system which generated this result transmitted reference range : 50 - 75 mm Hg. The reference range was not used to interpret this result as normal/abnormal . Ionized Calcium POC 1.24 mmol/L 1.15-1.29 (test code = 23566837) HCO3, Pankaj POC (test 16 mmol/L 22-26 L code = 41529081) TCO2 POC (test code = 17 mmol/L 21-32 L 83191071) Base Deficit, Pankaj POC -9 (test code = 02458153) Sample Type (test code IVEN Physi erik Notified = 39275540) % Sat, Pankaj POC (test 77 % code = 27874832) Lab Interpretation Abnormal (test code = 79279-3) [facility] POC docked [id number] 11:16:15 Test Item Value Reference Range Interpretation Comments pH, Pankaj POC (test code 7.32 7.33-7.43 L = 61434953) pCO2,Pankaj POC (test code 31.0 See_Comment L [Au tomated = 14500175) message] The sy stem which generated this result transmitted reference range : 38 - 50 mmHg. The reference range was not used to interpret this result as normal/abnormal . PO2, Venous POC (BKR) 44 See_Comment L [Auto mated (test code = 10926270) messa ge] The system which generated this result transmitted reference range : 50 - 75 mm Hg. The reference range was not used to interpret this result as normal/abnormal . Ionized Calcium POC 1.24 mmol/L 1.15-1.29 (test code = 99582657) HCO3, Pankaj POC (test 16 mmol/L 22-26 L code = 92786964) TCO2 POC (test code = 17 mmol/L 21-32 L 34386440) Base Deficit, Pankaj POC -9 (test code = 03752053) Sample Type (test code IVJESSICA Physi erik Notified = 64492827) % Sat, Pankaj POC (test 77 % code = 53492035) Lab Interpretation Abnormal (test code = 73179-8) [facility] POC docked [id number] 11:16:15 Test Item Value Reference Range Interpretation Comments pH, Pankaj POC (test code 7.32 7.33-7.43 L = 18947505) pCO2,Pankaj POC (test code 31.0 See_Comment L [Au tomated = 67291601) message] The sy stem which generated this result transmitted reference range : 38 - 50 mmHg. The reference range was not used to interpret this result as normal/abnormal . PO2, Venous POC (BKR) 44 See_Comment L [Auto mated (test code = 53360837) messa ge] The system which generated this result transmitted reference range : 50 - 75 mm Hg. The reference range was not used to interpret this result as normal/abnormal . Ionized Calcium POC 1.24 mmol/L 1.15-1.29 (test code = 76140069) HCO3, Pankaj POC (test 16 mmol/L 22-26 L code = 54246918) TCO2 POC (test code = 17 mmol/L 21-32 L 81478252) Base Deficit, Pankaj POC -9 (test code = 51016807) Sample Type (test code STEPAN valencia Notified = 75718108) % Sat, Pankaj POC (test 77 % code = 61777070) Lab Interpretation Abnormal (test code = 32616-0) [facility] POC docked [id number] 11:16:15 Test Item Value Reference Range Interpretation Comments pH, Pankaj POC (test code 7.32 7.33-7.43 L = 55646986) pCO2,Pankaj POC (test code 31.0 See_Comment L [Au tomated = 76424310) message] The sy stem which generated this result transmitted reference range : 38 - 50 mmHg. The reference range was not used to interpret this result as normal/abnormal . PO2, Venous POC (BKR) 44 See_Comment L [Auto mated (test code = 28808022) [employer]] The system which generated this result transmitted reference range : 50 - 75 mm Hg. The reference range was not used to interpret this result as normal/abnormal . Ionized Calcium POC 1.24 mmol/L 1.15-1.29 (test code = 56045437) HCO3, Pankaj POC (test 16 mmol/L 22-26 L code = 88894030) TCO2 POC (test code = 17 mmol/L 21-32 L 18756966) Base Deficit, Pankaj POC -9 (test code = 42377111) Sample Type (test code STEPAN valencia Notified = 00327169) % Sat, Pankaj POC (test 77 % code = 11976703) Lab Interpretation Abnormal (test code = 05841-2) [facility] POC docked [id number] 11:16:15 Test Item Value Reference Range Interpretation Comments pH, Pankaj POC (test code 7.32 7.33-7.43 L = 70208773) pCO2,Pankaj POC (test code 31.0 See_Comment L [Au tomated = 92441695) message] The sy stem which generated this result transmitted reference range : 38 - 50 mmHg. The reference range was not used to interpret this result as normal/abnormal . PO2, Venous POC (BKR) 44 See_Comment L [Auto mated (test code = 03879008) [employer]] The system which generated this result transmitted reference range : 50 - 75 mm Hg. The reference range was not used to interpret this result as normal/abnormal . Ionized Calcium POC 1.24 mmol/L 1.15-1.29 (test code = 48954919) HCO3, Pankaj POC (test 16 mmol/L 22-26 L code = 62412362) TCO2 POC (test code = 17 mmol/L 21-32 L 42393568) Base Deficit, Pankaj POC -9 (test code = 58776952) Sample Type (test code IVJESSICA Physi erik Notified = 73999939) % Sat, Pankaj POC (test 77 % code = 59024663) Lab Interpretation Abnormal (test code = 84268-8) [facility] POC docked [id number] 11:16:15 Test Item Value Reference Range Interpretation Comments pH, Pankaj POC (test code 7.32 7.33-7.43 L = 91354315) pCO2,Pankaj POC (test code 31.0 See_Comment L [Au tomated = 93096422) message] The sy stem which generated this result transmitted reference range : 38 - 50 mmHg. The reference range was not used to interpret this result as normal/abnormal . PO2, Venous POC (BKR) 44 See_Comment L [Auto mated (test code = 92436406) [employer]] The system which generated this result transmitted reference range : 50 - 75 mm Hg. The reference range was not used to interpret this result as normal/abnormal . Ionized Calcium POC 1.24 mmol/L 1.15-1.29 (test code = 24578462) HCO3, Pankaj POC (test 16 mmol/L 22-26 L code = 46473672) TCO2 POC (test code = 17 mmol/L 21-32 L 26226342) Base Deficit, Pankaj POC -9 (test code = 15715085) Sample Type (test code IVJESSICA Physi erik Notified = 48278911) % Sat, Pankaj POC (test 77 % code = 49616592) Lab Interpretation Abnormal (test code = 89699-3) [facility] POC docked [id number] 11:16:15 Test Item Value Reference Range Interpretation Comments pH, Pankaj POC (test code 7.32 7.33-7.43 L = 73109971) pCO2,Pankaj POC (test code 31.0 See_Comment L [Au tomated = 74381101) message] The sy stem which generated this result transmitted reference range : 38 - 50 mmHg. The reference range was not used to interpret this result as normal/abnormal . PO2, Venous POC (BKR) 44 See_Comment L [Auto mated (test code = 08934220) messa ge] The system which generated this result transmitted reference range : 50 - 75 mm Hg. The reference range was not used to interpret this result as normal/abnormal . Ionized Calcium POC 1.24 mmol/L 1.15-1.29 (test code = 03594638) HCO3, Pankaj POC (test 16 mmol/L 22-26 L code = 39265812) TCO2 POC (test code = 17 mmol/L 21-32 L 80074084) Base Deficit, Pankaj POC -9 (test code = 64890835) Sample Type (test code IVJESSICA Physi erik Notified = 40189485) % Sat, Pankaj POC (test 77 % code = 98458781) Lab Interpretation Abnormal (test code = 34966-2) [facility] POC docked [id number] 11:16:15 Test Item Value Reference Range Interpretation Comments pH, Pankaj POC (test code 7.32 7.33-7.43 L = 04230535) pCO2,Pankaj POC (test code 31.0 See_Comment L [Au tomated = 56520435) message] The sy stem which generated this result transmitted reference range : 38 - 50 mmHg. The reference range was not used to interpret this result as normal/abnormal . PO2, Venous POC (BKR) 44 See_Comment L [Auto mated (test code = 39249738) [employer]a ge] The system which generated this result transmitted reference range : 50 - 75 mm Hg. The reference range was not used to interpret this result as normal/abnormal . Ionized Calcium POC 1.24 mmol/L 1.15-1.29 (test code = 46461812) HCO3, Pankaj POC (test 16 mmol/L 22-26 L code = 92789186) TCO2 POC (test code = 17 mmol/L 21-32 L 77224234) Base Deficit, Pankaj POC -9 (test code = 40495102) Sample Type (test code STEPAN valencia Notified = 63689336) % Sat, Pankaj POC (test 77 % code = 11313136) Lab Interpretation Abnormal (test code = 45457-5) [facility] POC docked [id number] 11:16:15 Test Item Value Reference Range Interpretation Comments pH, Pankaj POC (test code 7.32 7.33-7.43 L = 61484042) pCO2,Pankaj POC (test code 31.0 See_Comment L [Au tomated = 10431005) message] The sy stem which generated this result transmitted reference range : 38 - 50 mmHg. The reference range was not used to interpret this result as normal/abnormal . PO2, Venous POC (BKR) 44 See_Comment L [Auto mated (test code = 45526952) messa ge] The system which generated this result transmitted reference range : 50 - 75 mm Hg. The reference range was not used to interpret this result as normal/abnormal . Ionized Calcium POC 1.24 mmol/L 1.15-1.29 (test code = 93847771) HCO3, Pankaj POC (test 16 mmol/L 22-26 L code = 31053955) TCO2 POC (test code = 17 mmol/L 21-32 L 20087474) Base Deficit, Pankaj POC -9 (test code = 19806872) Sample Type (test code STEPAN valencia Notified = 50483638) % Sat, Pankaj POC (test 77 % code = 52815770) Lab Interpretation Abnormal (test code = 14528-9) [facility] POC docked [id number] 11:16:15 Test Item Value Reference Range Interpretation Comments pH, Pankaj POC (test code 7.32 7.33-7.43 L = 44393034) pCO2,Pankaj POC (test code 31.0 See_Comment L [Au tomated = 54674640) message] The sy stem which generated this result transmitted reference range : 38 - 50 mmHg. The reference range was not used to interpret this result as normal/abnormal . PO2, Venous POC (BKR) 44 See_Comment L [Auto mated (test code = 09274775) messa ge] The system which generated this result transmitted reference range : 50 - 75 mm Hg. The reference range was not used to interpret this result as normal/abnormal . Ionized Calcium POC 1.24 mmol/L 1.15-1.29 (test code = 02042714) HCO3, Pankaj POC (test 16 mmol/L 22-26 L code = 24812907) TCO2 POC (test code = 17 mmol/L 21-32 L 30905918) Base Deficit, Pankaj POC -9 (test code = 32271584) Sample Type (test code IVJESSICA Physi erik Notified = 79570752) % Sat, Pankaj POC (test 77 % code = 70487315) Lab Interpretation Abnormal (test code = 99777-7) [facility] POC docked [id number] 11:16:15 Test Item Value Reference Range Interpretation Comments pH, Pankaj POC (test code 7.32 7.33-7.43 L = 29256406) pCO2,Pankaj POC (test code 31.0 See_Comment L [Au tomated = 85365482) message] The sy stem which generated this result transmitted reference range : 38 - 50 mmHg. The reference range was not used to interpret this result as normal/abnormal . PO2, Venous POC (BKR) 44 See_Comment L [Auto mated (test code = 17233701) [employer]] The system which generated this result transmitted reference range : 50 - 75 mm Hg. The reference range was not used to interpret this result as normal/abnormal . Ionized Calcium POC 1.24 mmol/L 1.15-1.29 (test code = 71134582) HCO3, Pankaj POC (test 16 mmol/L 22-26 L code = 17675716) TCO2 POC (test code = 17 mmol/L 21-32 L 05203861) Base Deficit, Pankaj POC -9 (test code = 72596254) Sample Type (test code IVJESSICA Physi erik Notified = 31642474) % Sat, Pankaj POC (test 77 % code = 68060273) Lab Interpretation Abnormal (test code = 33433-6) [facility] POC docked [id number] 11:16:15 Test Item Value Reference Range Interpretation Comments pH, Pankaj POC (test code 7.32 7.33-7.43 L = 94031813) pCO2,Pankaj POC (test code 31.0 See_Comment L [Au tomated = 75002245) message] The sy stem which generated this result transmitted reference range : 38 - 50 mmHg. The reference range was not used to interpret this result as normal/abnormal . PO2, Venous POC (BKR) 44 See_Comment L [Auto mated (test code = 00831877) [employer]] The system which generated this result transmitted reference range : 50 - 75 mm Hg. The reference range was not used to interpret this result as normal/abnormal . Ionized Calcium POC 1.24 mmol/L 1.15-1.29 (test code = 22700978) HCO3, Pankaj POC (test 16 mmol/L 22-26 L code = 81792876) TCO2 POC (test code = 17 mmol/L 21-32 L 49360756) Base Deficit, Pankaj POC -9 (test code = 63957291) Sample Type (test code IVEN Physi erik Notified = 30076911) % Sat, Pankaj POC (test 77 % code = 38910627) Lab Interpretation Abnormal (test code = 34579-3) [facility] POC docked [id number] 11:16:15 Test Item Value Reference Range Interpretation Comments pH, Pankaj POC (test code 7.32 7.33-7.43 L = 80598125) pCO2,Pankaj POC (test code 31.0 See_Comment L [Au tomated = 58140093) message] The sy stem which generated this result transmitted reference range : 38 - 50 mmHg. The reference range was not used to interpret this result as normal/abnormal . PO2, Venous POC (BKR) 44 See_Comment L [Auto mated (test code = 12967486) [employer]] The system which generated this result transmitted reference range : 50 - 75 mm Hg. The reference range was not used to interpret this result as normal/abnormal . Ionized Calcium POC 1.24 mmol/L 1.15-1.29 (test code = 22227802) HCO3, Pankaj POC (test 16 mmol/L 22-26 L code = 03970804) TCO2 POC (test code = 17 mmol/L 21-32 L 19155184) Base Deficit, Pankaj POC -9 (test code = 87046423) Sample Type (test code IVEN Physi erik Notified = 38030694) % Sat, Pankaj POC (test 77 % code = 50366380) Lab Interpretation Abnormal (test code = 34362-5) [facility] POC docked [id number] 11:16:15 Test Item Value Reference Range Interpretation Comments pH, Pankaj POC (test code 7.32 7.33-7.43 L = 70171201) pCO2,Pankaj POC (test code 31.0 See_Comment L [Au tomated = 57489591) message] The sy stem which generated this result transmitted reference range : 38 - 50 mmHg. The reference range was not used to interpret this result as normal/abnormal . PO2, Venous POC (BKR) 44 See_Comment L [Auto mated (test code = 04056139) messa ge] The system which generated this result transmitted reference range : 50 - 75 mm Hg. The reference range was not used to interpret this result as normal/abnormal . Ionized Calcium POC 1.24 mmol/L 1.15-1.29 (test code = 25835478) HCO3, Pankaj POC (test 16 mmol/L 22-26 L code = 18396271) TCO2 POC (test code = 17 mmol/L 21-32 L 16932149) Base Deficit, Pankaj POC -9 (test code = 15191279) Sample Type (test code STEPAN Physi erik Notified = 02213061) % Sat, Pankaj POC (test 77 % code = 62354588) Lab Interpretation Abnormal (test code = 91525-6) [facility] POC docked [id number] 11:16:15 Test Item Value Reference Range Interpretation Comments pH, Pankaj POC (test code 7.32 7.33-7.43 L = 30655889) pCO2,Pankaj POC (test code 31.0 See_Comment L [Au tomated = 92071499) message] The sy stem which generated this result transmitted reference range : 38 - 50 mmHg. The reference range was not used to interpret this result as normal/abnormal . PO2, Venous POC (BKR) 44 See_Comment L [Auto mated (test code = 48153075) messa ge] The system which generated this result transmitted reference range : 50 - 75 mm Hg. The reference range was not used to interpret this result as normal/abnormal . Ionized Calcium POC 1.24 mmol/L 1.15-1.29 (test code = 57887973) HCO3, Pankaj POC (test 16 mmol/L 22-26 L code = 20559813) TCO2 POC (test code = 17 mmol/L 21-32 L 50108308) Base Deficit, Pankaj POC -9 (test code = 10051006) Sample Type (test code IVJESSICA Physi erik Notified = 48492925) % Sat, Pankaj POC (test 77 % code = 01590470) Lab Interpretation Abnormal (test code = 08359-5) [facility] POC docked [id number] 11:16:15 Test Item Value Reference Range Interpretation Comments pH, Pankaj POC (test code 7.32 7.33-7.43 L = 41738160) pCO2,Pankaj POC (test code 31.0 See_Comment L [Au tomated = 99328424) message] The sy stem which generated this result transmitted reference range : 38 - 50 mmHg. The reference range was not used to interpret this result as normal/abnormal . PO2, Venous POC (BKR) 44 See_Comment L [Auto mated (test code = 93648031) messa ge] The system which generated this result transmitted reference range : 50 - 75 mm Hg. The reference range was not used to interpret this result as normal/abnormal . 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: [id number]: 1970 Requested By: TNAJA Garza Number: [id number] Reading MD: Chiara Calles MeasurementsIntervals Satin Rate: 75 P: 84PR: 153 QRS: 67QRSD: 104 T: 77QT: 344 QTc: 373 Interpretive StatementsSINUS RHYTHMPOSSIBLE RIGHT VENTRICULAR CONDUCTION DELAY [RSR (QR) IN V1/V2]Electronically Signed On 01-09-2022 8:27:19 CDT by Walrobert VoluniabakariBulu [employer]12 LEAD [id number] 20:59:5612 LEAD EKG FOR [facility] Test Date: 2512-25-08Hrv Name: DORA PAEZRY Department: 5520Patient ID: [id number] Room: Gender: M Rack Production Worker: [id number]: 1970 Requested By: TANJA Garza Number: [id number] Reading MD: Chiara Calles MeasurementsIntervals Satin Rate: 75 P: 84PR: 153 QRS: 67QRSD: 104 T: 77QT: 344 QTc: 373 Interpretive StatementsSINUS RHYTHMPOSSIBLE RIGHT VENTR ICULAR CONDUCTION DELAY [RSR (QR) IN V1/V2]Electronically Signed On 01-09-2022 8:27:19 CDT by Chiara VoluniabakariBulu [facility] LEAD [id number] 20:59:5612 LEAD EKG FOR [facility] Test Date: 3099-26-22Siy Name: DORA DOWNS Department: 5520Patient ID: [id number] Room: Gender: M 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 Production Worker: [id number]: 1970 Requested By: TANJA Garza Number: [id number] Reading MD: Chiara Calles MeasurementsIntervals Satin Rate: 75 P: 84PR: 153 QRS: 67QRSD: 104 T: 77QT: 344 QTc: 373 Interpretive StatementsSINUS RHYTHMPOSSIBLE RIGHT VENTRICULAR CONDUCTION DELAY [RSR (QR) IN V1/V2]Electronically Signed On 01-09-2022 8:27:19 CDT by Walrobert VoluniabakariBulu [facility] LEAD [id number] 20:59:5612 LEAD EKG FOR [facility] Test Date: 9034-64-52Xqb Name: DORA DOWNS Department: 5520Patient ID: [id number] Room: Gender: M Rack Production Worker: [id number]: 1970 Requested By: TANJA Garza Number: [id number] Reading MD: Chiara Calles MeasurementsIntervals Satin Rate: 75 P: 84P R: 153 QRS: 67QRSD: 104 T: 77QT: 344 QTc: 373 Interpretive StatementsSINUS RHYTHMPOSSIBLE RIGHT VENTRICULAR CONDUCTION DELAY [RSR (QR) IN V1/V2]Electronically Signed On 01-09-2022 8:27:19 CDT by BatonrobertLookAcross12 LEAD [id number] 20:59:5612 LEAD EKG FOR [facility] Test Date: 7356-41-25Nbx Name: DORA PAEZRY Department: 5520Patient ID: [id number] Room: Gender: Rack Production Worker: [id number]: 1970 Requested By: TANJA Garza Number: [id number] Reading MD: Chiara Calles MeasurementsIntervals Satin Rate: 75 P: 84PR: 153 QRS: 67QRSD: 104 T: 77QT: 344 QTc: 373 Interpretive StatementsSINUS RHYTHMPOSSIBLE RIGHT VENTRICULAR CONDUCTION DELAY [RSR (QR) IN V1/V2]Electronically Signed On 01-09-2022 8:27:19 CDT by Carena12 LEAD [id number] 20:59:5612 LEAD EKG FOR [facility] Test Date: 8663-62-78Iwn Name: DORA PAEZRY Department: 5520Patient ID: [id number] Room: Gender: Rack Production Worker: [id number]: 1970 Requested By: TANJA Garza Number: [id number] Reading MD: Chiara Calles MeasurementsIntervals Satin Rate: 75 P: 84PR: 153 QRS: 67QRSD: 104 T: 77QT: 344 QTc: 373 Interpretive StatementsSINUS RHYTHMPOSSIBLE RIGHT VENT RICULAR CONDUCTION DELAY [RSR (QR) IN V1/V2]Electronically Signed On 01-09-2022 8:27:19 CDT by Carena12 LEAD [id number] 20:59:5612 LEAD EKG FOR [facility] Test Date: 5018-04-07Nnk Name: DORA DOWNS Department: 5520Patient ID: [id number] Room: Gender: M 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 Production Worker: [id number]: 1970 Requested By: TANJA Garza Number: [id number] Reading MD: Chiara Calles MeasurementsIntervals Satin Rate: 75 P: 84PR: 153 QRS: 67QRSD: 104 T: 77QT: 344 QTc: 373 Interpretive StatementsSINUS RHYTHMPOSSIBLE RIGHT VENTRICULAR CONDUCTION DELAY [RSR (QR) IN V1/V2]Electronically Signed On 01-09-2022 8:27:19 CDT by Chiara VoluniabakariAdMaster12 LEAD [id number] 20:59:5612 LEAD EKG FOR [facility] Test Date: 2491-16-32Yku Name: DORA PAEZRY Department: 5520Patient ID: [id number] Room: Gender: M Rack Production Worker: [id number]: 1970 Requested By: TANJA Garza Number: [id number] Reading MD: Chiara Calles MeasurementsIntervals Satin Rate: 75 P: 84 SD: 153 QRS: 67QRSD: 104 T: 77QT: 344 QTc: 373 Interpretive StatementsSINUS RHYTHMPOSSIBLE RIGHT VENTRICULAR CONDUCTION DELAY [RSR (QR) IN V1/V2]Electronically Signed On 01-09-2022 8:27:19 CDT by ChiaraBeamz InteractivePiggott Community HospitalOwler, Inc[facility]12 LEAD [id number] 20:59:5612 LEAD EKG FOR [facility] Test Date: 8751-51-87Cij Name: DORA MCNEILL Department: 5520Patient ID: [id number] Room: Gender: M Rack Production Worker: [id number]: 1970 Requested By: TANJA Garza Number: [id number] Reading MD: Chiara Calles MeasurementsIntervals Satin Rate: 75 P: 84PR: 153 QRS: 67QRSD: 104 T: 77QT: 344 QTc: 373 Interpretive StatementsSINUS RHYTHMPOSSIBLE RIGHT VENTRICULAR CONDUCTION DELAY [RSR (QR) IN V1/V2]Electronically Signed On 01-09-2022 8:27:19 CDT by Carena12 LEAD [id number] 20:59:5612 LEAD EKG FOR [facility] Test Date: 9622-41-46Hip Name: DORA MCNEILL Department: 5520Patient ID: [id number] Room: Gender: M Rack Production Worker: [id number]: 1970 Requested By: TANJA Garza Number: [id number] Reading MD: Chiara Calles MeasurementsIntervals Satin Rate: 75 P: 84PR: 153 QRS: 67QRSD: 104 T: 77QT: 344 QTc: 373 Interpretive StatementsSINUS RHYTHMPOSSIBLE RIGHT VENT RICULAR CONDUCTION DELAY [RSR (QR) IN V1/V2]Electronically Signed On 01-09-2022 8:27:19 CDT by GiveMeSportPiggott Community HospitalOwler, Inc.12 LEAD [id number] 20:59:5612 LEAD EKG FOR [facility] Test Date: 7146-65-44Adk Name: DORA PAEZRY Department: 5520Patient ID: [id number] Room: Gender: M Rack Production Worker: [id number]: 1970 Requested By: TANJA Garza Number: [id number] Reading MD: Chiara Calles MeasurementsIntervals Satin Rate: 75 P: 84PR: 153 QRS: 67QRSD: 104 T: 77QT: 344 QTc: 373 Interpretive StatementsSINUS RHYTHMPOSSIBLE RIGHT VENTRICULAR CONDUCTION DELAY [RSR (QR) IN V1/V2]Electronically Signed On 01-09-2022 8:27:19 CDT by [facility] CenterWorkSnugPiggott Community HospitalOwler, Inc.12 LEAD [id number] 20:59:5612 LEAD EKG FOR [facility] Test Date: 4535-62-02Xjc Name: DORA MCNEILL Department: 5520Patient ID: [id number] Room: Gender: M Rack Production Worker: [id number]: 1970 Requested By: TANJA Garza Number: [id number] Reading MD: Chiara Calles MeasurementsIntervals Satin Rate: 75 P: 84PR : 153 QRS: 67QRSD: 104 T: 77QT: 344 QTc: 373 Interpretive StatementsSINUS RHYTHMPOSSIBLE RIGHT VENTRICULAR CONDUCTION DELAY [RSR (QR) IN V1/V2]Electronically Signed On 01-09-2022 8:27:19 CDT by [facility] CenterWorkSnugPiggott Community HospitalMinicom Digital Signage Nsiilk36 LEAD [id number] 20:59:5612 LEAD EKG FOR [facility] Test Date: 2238-44-17Aiy Name: DORA MCNEILL Department: 5520Patient ID: [id number] Room: Gender: M Rack Production Worker: [id number]: 1970 Requested By: TANJA Garza Number: [id number] Reading MD: Chiara Calles MeasurementsIntervals Satin Rate: 75 P: 84PR: 153 QRS: 67QRSD: 104 T: 77QT: 344 QTc: 373 Interpretive StatementsSINUS RHYTHMPOSSIBLE RIGHT VENTRICULAR CONDUCTION DELAY [RSR (QR) IN V1/V2]Electronically Signed On 01-09-2022 8:27:19 CDT by [facility] CenterWorkSnugPiggott Community HospitalOwler, Inc.12 LEAD [id number] 20:59:5612 LEAD EKG FOR [facility] Test Date: 8944-72-20Bhp Name: DORA PAEZRY Department: 5520Patient ID: [id number] Room: Gender: M Rack Production Worker: [id number]: 1970 Requested By: TANJA Garza Number: [id number] Reading MD: Chiara Calles MeasurementsIntervals Satin Rate: 75 P: 84PR: 153 QRS: 67QRSD: 104 T: 77QT: 344 QTc: 373 Interpretive StatementsSINUS RHYTHMPOSSIBLE RIGHT VENTR ICULAR CONDUCTION DELAY [RSR (QR) IN V1/V2]Electronically Signed On 01-09-2022 8:27:19 CDT by [facility] Beamz InteractivePiggott Community HospitalMinicom Digital Signage Wobrtg69 LEAD [id number] 20:59:5612 LEAD EKG FOR [facility] Test Date: 7292-92-70Uji Name: DORA PAEZRY Department: 5520Patient ID: [id number] Room: Gender: M Rack Production Worker: [id number]: 1970 Requested By: TANJA Garza Number: [id number] Reading MD: Chiara Calles MeasurementsIntervals Satin Rate: 75 P: 84PR: 153 QRS: 67QRSD: 104 T: 77QT: 344 QTc: 373 Interpretive StatementsSINUS RHYTHMPOSSIBLE RIGHT VENTRICULAR CONDUCTION DELAY [RSR (QR) IN V1/V2]Electronically Signed On 01-09-2022 8:27:19 CDT by Chiara VoluniabakariAdMaster12 LEAD [id number] 20:59:5612 LEAD EKG FOR [facility] Test Date: 9238-87-15Ucv Name: DORA MCNEILL Department: 5520Patient ID: [id number] Room: Gender: M Rack Production Worker: [id number]: 1970 Requested By: TANJA Garza Number: [id number] Reading MD: Chiara Calles MeasurementsIntervals Satin Rate: 75 P: 84PR: 153 QRS: 67QRSD: 104 T: 77QT: 344 QTc: 373 Interpretive StatementsSINUS RHYTHMPOSSIBLE RIGHT VENTRICULAR CONDUCTION DELAY [RSR (QR) IN V1/V2]Electronically Signed On 01-09-2022 8:27:19 CDT by AppiteratebakariAdMaster12 LEAD [id number] 20:59:5612 LEAD EKG FOR [facility] Test Date: 5081-23-37Cmb Name: DORA MCNEILL Department: 5520Patient ID: [id number] Room: Gender: M Rack Production Worker: [id number]: 1970 Requested By: TANJA Garza Number: [id number] Reading MD: Chiara Calles MeasurementsIntervals Satin Rate: 75 P: 84PR: 153 QRS: 67QRSD: 104 T: 77QT: 344 QTc: 373 Interpretive StatementsSINUS RHYTHMPOSSIBLE RIGHT VENTRICULAR CONDUCTION DELAY [RSR (QR) IN V1/V2]Electronically Signed On 01-09-2022 8:27:19 CDT by [place] LEAD [id number] 20:59:5612 LEAD EKG FOR [facility] Test Date: 5974-50-01Koz Name: DORA MCNEILL Department: 5520Patient ID: [id number] Room: Gender: M Rack Production Worker: [id number]: 1970 Requested By: TANJA Garza Number: [id number] Reading MD: Chiara Calles MeasurementsIntervals Satin Rate: 75 P: 84PR: 153 QRS: 67QRSD: 104 T: 77QT: 344 QTc: 373 Interpretive StatementsSINUS RHYTHMPOSSIBLE RIGHT VENTRI CULAR CONDUCTION DELAY [RSR (QR) IN V1/V2]Electronically Signed On 01-09-2022 8:27:19 CDT by Chiara VoluniabakariBulu [facility]pa[facility] Jjygdg80 LEAD [id number] 20:59:5612 LEAD EKG FOR [facility] Test Date: 4953-07-80Hwj Name: DORA PAEZRY Department: 5520Patient ID: [id number] Room: Gender: M Rack Production Worker: [id number]: 1970 Requested By: TANJA Garza Number: [id number] Reading MD: Chiara Calles MeasurementsIntervals Satin Rate: 75 P: 84PR: 153 QRS: 67QRSD: 104 T: 77QT: 344 QTc: 373 Interpretive StatementsSINUS RHYTHMPOSSIBLE RIGHT VENTRICULAR CONDUCTION DELAY [RSR (QR) IN V1/V2]Electronically Signed On 01-09-2022 8:27:19 CDT by Chiara DavisBulu [facility]paal[facility] Lmalze48 LEAD [id number] 20:59:5612 LEAD EKG FOR [facility] Test Date: 3961-62-84Ihi Name: DORA MCNEILL Department: 5520Patient ID: [id number] Room: Gender: M Rack Production Worker: [id number]: 1970 Requested By: TANJA Garza Number: [id number] Reading MD: Chiara Calles MeasurementsIntervals Satin Rate: 75 P: 84PR: 153 QRS: 67QRSD: 104 T: 77QT: 344 QTc: 373 Interpretive StatementsSINUS RHYTHMPOSSIBLE RIGHT VENTRICULAR CONDUCTION DELAY [RSR (QR) IN V1/V2]Electronically Signed On 01-09-2022 8:27:19 CDT by ChiaraBeamz InteractivePiggott Community HospitalOwler, Inc.12 LEAD [id number] 20:59:5612 LEAD EKG FOR [facility] Test Date: 3718-67-88Bqt Name: DORA MCNEILL Department: 5520Patient ID: [id number] Room: Gender: M Rack Production Worker: [id number]: 1970 Requested By: TANJA Garza Number: [id number] Reading MD: Chiara Calles MeasurementsIntervals Satin Rate: 75 P: 84PR: 153 QRS: 67QRSD: 104 T: 77QT: 344 QTc: 373 Interpretive StatementsSINUS RHYTHMPOSSIBLE RIGHT VENTRICULAR CONDUCTION DELAY [RSR (QR) IN V1/V2]Electronically Signed On 01-09-2022 8:27:19 CDT by Batonrobert VoluniabakariBulu [employer]12 LEAD [id number] 20:59:5612 LEAD EKG FOR [facility] Test Date: 3275-33-50Ibz Name: DORA MCNEILL Department: 5520Patient ID: [id number] Room: Gender: M Rack Production Worker: [id number]: 1970 Requested By: TANJA Garza Number: [id number] Reading MD: Chiara Calles MeasurementsIntervals Satin Rate: 75 P: 84PR: 153 QRS: 67QRSD: 104 T: 77QT: 344 QTc: 373 Interpretive StatementsSINUS RHYTHMPOSSIBLE RIGHT VENT RICULAR CONDUCTION DELAY [RSR (QR) IN V1/V2]Electronically Signed On 01-09-2022 8:27:19 CDT by GenevaOwler[employer]12 LEAD [id number] 20:59:5612 LEAD EKG FOR [facility] Test Date: 1028-56-78Mhi Name: DORA MCNEILL Department: 5520Patient ID: [id number] Room: Gender: M Rack Production Worker: [id number]: 1970 Requested By: TANJA Garza Number: [id number] Reading MD: Chiara Calles MeasurementsIntervals Satin Rate: 75 P: 84PR: 153 QRS: 67QRSD: 104 T: 77QT: 344 QTc: 373 Interpretive StatementsSINUS RHYTHMPOSSIBLE RIGHT VENTRICULAR CONDUCTION DELAY [RSR (QR) IN V1/V2]Electronically Signed On 01-09-2022 8:27:19 CDT by [facility] W/AUTO [id number] 23:52:00 Test Item Value Reference Range Interpretation [...] = MX#) 0.8 k/mm3 0.1-0.8 N LIVER [id number] 20:04:00 Test Item Value Reference Range Interpretation Comments TOTAL PROTEIN (test code 6.7 GM/DL 5.0-8.0 N Per formed by = PROT) certified [facility] ALBUMIN (test code = [...] 67 UNITS/L 25-125 N LYNDSEY) BASIC METABOLIC [id number] 19:54:00 Test Item Value Reference Range Interpretation [...] POCGLU) 81 MG/DL - CT ABD PELVIS W/HBHC2345-88-09 00:00:00 [facility] : 1970 Sex: M Name: HOANG MCNEILL FSED : 1970 Age/S: 51 / M [address] [facility] Unit #: [id number] Loc: [place] [address] Phys: Raffaele Levi MD Acct: [id number] Dis Date: Status: PRE ER PHONE #: Exam Date: 09/23/20211999 FAX #: Reason: RUQ PAIN, VOMITING EXAMS: CPT CODE: [id number] CT ABD PELVIS W/CONT 85831 PROCEDURE INFORMATION: Exam: CT Abdomen And Pelvis [...] : 1970 Age/S: 51 / M [address] [facility] Unit #: [id number] Loc: [place] [address] Phys: Raffaele Levi MD Acct: [id number] Dis Date: Status: PRE ER PHONE #: Exam Date: 09/23/20211999 FAX #: Reason: RUQ PAIN, VOMITING EXAMS: CPT CODE: [id number] CT ABD PELVIS W/CONT 13436 <Continued> abdominal small bowel loops may relate [...] (2049) PAGE 2 Signed ReportCOMP. METABOLIC PANEL (40253)2021-09-14 03:57:44 Test Item Value Reference Range Interpretation Comments NA (test code = 132 mmol/L 135-145 L 3495452402) K (test code = 4.1 mmol/L 3.5-5.0 4626651364) CL (test code = 101 mmol/L 98-108 5682617286) CO2 TOTAL (test code = 23 mmol/L 23-31 0431671619) AGAP (test code = 2-16 5170345318) BUN (test code = 23 mg/dL 7-23 3565165234) GLUCOSE (test code = 97 mg/dL 70-110 2103445925) CREATININE (test code = 1.48 mg/dL 0.60-1.25 H 4690334210) TOTAL BILI (test code = 0.3 mg/dL 0.1-1.4 6403001625) CALCIUM (test code = 9.0 mg/dL 8.6-10.6 5561959054) T PROTEIN (test code = 6.2 g/dL 6.3-8.2 L 0592994662) ALBUMIN (test code = 3.7 g/dL 3.5-5.0 9265495831) ALK PHOS (test code = 82 U/L 34-122 5976767811) ALTv (test code = 21 U/L 5-50 1742-6) AST(SGOT) (test code = 20 U/L 13-40 4869446989) eGFR (test code = mL/min/1.73m2 8706237134) GILBERTO (test code = GILBERTO) Association of [...] tests). Lab Interpretation Abnormal (test code = 69668-7) [facility] WITH [id number] 03:52:42 Test Item Value Reference Range Interpretation Comments WBC (test code = See_Comment [Automated 7858-2) message] The sy stem which generated this result transmitted reference range : 4.20 - 10.70 10*3/?L. The reference range was not used to interpret this result as normal/abnormal . RBC (test code = See_Comment L [Automated 976-2) message] The sy stem which generated this [...] RDW-SD (test code = 47.2 fL 38.5-51.6 59746-7) RDW-CV (test code = 14.0 % 12.1-15.4 788-0) PLT (test code = See_Comment H [Automated 777-3) message] The sy stem which generated this result transmitted reference range : 150 - 328 10*3/ ?L. The reference r meredith was not used to interpret this result as normal/abnormal . MPV (test code = 9.2 fL 9.8-13.0 L 54407-8) NRBC/100 WBC (test See_Comment [Automat ed code = 1426232487) message] The system which generated this result transmitted reference range : 0.0 - 10.0 /100 WBCs. The refer ence range was not u sed to interpret th is result as normal/abnormal . NRBC x10^3 (test code <0.01 See_Comment [Auto mated = 8514390904) message] The s ystem which generated this result transmitted reference range : 10*3/?L. The reference range was not used to interpret this result as normal/abnormal . GRAN MAT (NEUT) % 61.3 % (test code = 770-8) IMM GRAN % (test code 0.20 % = 5725338263) LYMPH % (test code = 23.1 % 736-9) MONO % (test code = 13.7 % 5905-5) EOS % (test code = 1.5 % 713-8) BASO % (test code = 0.2 % 706-2) GRAN MAT x10^3(ANC) 2.78 10*3/uL 1.99-6.95 (test code = 2024234619) IMM GRAN x10^3 (test <0.03 0.00-0.06 code = 3740747116) LYMPH x10^3 (test code 1.05 10*3/uL 1.09-3.23 L = 731-0) MONO x10^3 (test code 0.62 10*3/uL 0.36-1.02 = 742-7) EOS x10^3 (test code = 0.07 10*3/uL 0.06-0.53 711-2) BASO x10^3 (test code <0.03 0.01-0.09 = 704-7) Lab Interpretation Abnormal (test code = 72933-6) [facility] [id number] 13:36:34 Test Item Value Reference Interpretation Comments Range TROPONIN I (test 0.001 ng/mL See_Comment [Automated code = 4217189370) message] The system which generated this result [...] biotin. Lab Interpretation Normal (test code = 45060-8) [facility] CampusN-[facility]MINAL [id number] 13:36:34 Test Item Value Reference Range Interpretation Comments NT-proBNP (test code 79 pg/mL See_Comment [Autom ated = 3497362646) message] The system which generated this result transmitted reference range : <=125. The reference range was not used to interpret this result as normal/abnormal . GILBERTO (test code = GILBERTO) Biotin has been reported to cause a negative bias, interpret results relative to patient's use of biotin. Lab Interpretation Normal (test code = 01150-3) [facility] METABOLIC PANEL (NA, K, CL, CO2, GLUCOSE, BUN, CREATININE, CA)2021-09-12 13:24:32 Test Item Value Reference Range Interpretation Comments NA (test code = 134 mmol/L 135-145 L 9136301734) K (test code = 4.3 mmol/L 3.5-5.0 3703356863) CL (test code = 102 mmol/L 98-108 7673781567) CO2 TOTAL (test code = 23 mmol/L 23-31 0979318269) AGAP (test code = 2-16 4523684727) BUN (test code = 22 mg/dL 7-23 8632663145) GLUCOSE (test code = 89 mg/dL 70-110 0783179664) CREATININE (test code = 1.69 mg/dL 0.60-1.25 H 5655440924) CALCIUM (test code = 9.0 mg/dL 8.6-10.6 9295589730) eGFR (test code = mL/min/1.73m2 2127184827) GILBERTO (test code = GILBERTO) Association of [...] tests). Lab Interpretation Abnormal (test code = 68345-0) [facility] WITH [id number] 13:09:28 Test Item Value Reference Range Interpretation [...] RDW-SD (test code = 45.3 fL 38.5-51.6 19502-1) RDW-CV (test code = 13.9 % 12.1-15.4 788-0) PLT (test code = See_Comment H [Automated 777-3) message] The sy stem which generated this result transmitted reference range : 150 - 328 10*3/ ?L. The reference r meredith was not used to interpret this result as normal/abnormal . MPV (test code = 9.0 fL 9.8-13.0 L 37671-5) NRBC/100 WBC (test See_Comment [Automat ed code = 8657860995) message] The system which generated this result transmitted reference range : 0.0 - 10.0 /100 WBCs. The refer ence range was not u sed to interpret th is result as normal/abnormal . NRBC x10^3 (test code <0.01 See_Comment [Auto mated = 2267060681) message] The s ystem which generated this result transmitted reference range : 10*3/?L. The reference range was not used to interpret this result as normal/abnormal . GRAN MAT (NEUT) % 69.7 % (test code = 770-8) IMM GRAN % (test code 0.40 % = 7845971983) LYMPH % (test code = 16.9 % 736-9) MONO % (test code = 11.9 % 5905-5) EOS % (test code = 0.7 % 713-8) BASO % (test code = 0.4 % 706-2) GRAN MAT x10^3(ANC) 3.88 10*3/uL 1.99-6.95 (test code = 8300374647) IMM GRAN x10^3 (test <0.03 0.00-0.06 code = 1454069342) LYMPH x10^3 (test code 0.94 10*3/uL 1.09-3.23 L = 731-0) MONO x10^3 (test code 0.66 10*3/uL 0.36-1.02 = 742-7) EOS x10^3 (test code = 0.04 10*3/uL 0.06-0.53 L 711-2) BASO x10^3 (test code <0.03 0.01-0.09 = 704-7) Lab Interpretation Abnormal (test code = 34782-6) [facility] WITH [id number] 05:55:28 Test Item Value Reference Range Interpretation Comments WBC (test code = See_Comment [Automated 4790-2) message] The sy stem which generated this result transmitted reference range : 4.20 - 10.70 10*3/?L. The reference range was not used to interpret this result as normal/abnormal . RBC (test code = See_Comment L [Automated 199-8) message] The sy stem which generated this [...] RDW-SD (test code = 45.4 fL 38.5-51.6 45525-0) RDW-CV (test code = 13.8 % 12.1-15.4 788-0) PLT (test code = See_Comment [Automated 777-3) message] The sy stem which generated this result transmitted reference range : 150 - 328 10*3/ ?L. The reference r meredith was not used to interpret this result as normal/abnormal . MPV (test code = 9.2 fL 9.8-13.0 L 45620-9) NRBC/100 WBC (test See_Comment [Automat ed code = 5579282191) message] The system which generated this result transmitted reference range : 0.0 - 10.0 /100 WBCs. The refer ence range was not u sed to interpret th is result as normal/abnormal . NRBC x10^3 (test code <0.01 See_Comment [Auto mated = 9753181221) message] The s ystem which generated this result transmitted reference range : 10*3/?L. The reference range was not used to interpret this result as normal/abnormal . GRAN MAT (NEUT) % 60.6 % (test code = 770-8) IMM GRAN % (test code 0.20 % = 2501592558) LYMPH % (test code = 25.5 % 736-9) MONO % (test code = 10.5 % 5905-5) EOS % (test code = 2.8 % 713-8) BASO % (test code = 0.4 % 706-2) GRAN MAT x10^3(ANC) 3.23 10*3/uL 1.99-6.95 (test code = 9797944673) IMM GRAN x10^3 (test <0.03 0.00-0.06 code = 8153846723) LYMPH x10^3 (test code 1.36 10*3/uL 1.09-3.23 = 731-0) MONO x10^3 (test code 0.56 10*3/uL 0.36-1.02 = 742-7) EOS x10^3 (test code = 0.15 10*3/uL 0.06-0.53 711-2) BASO x10^3 (test code <0.03 0.01-0.09 = 704-7) Lab Interpretation Abnormal (test code = 82095-9) [facility]47 Test Item Value Reference Range Interpretation Comments LIPASE (test code = [id number]) 116 U/L 0-220 Lab Interpretation (test code = Normal 98999-2) [facility] (89613)2021-09-09 05:48:46 Test Item Value Reference Range Interpretation Comments NA (test code = 137 mmol/L 135-145 2047160819) K (test code = 4.0 mmol/L 3.5-5.0 7642505385) CL (test code = 108 mmol/L 98-108 7276151313) CO2 TOTAL (test code = 22 mmol/L 23-31 L 6134951251) AGAP (test code = 2-16 0526135297) BUN (test code = 23 mg/dL 7-23 7358712128) GLUCOSE (test code = 89 mg/dL 70-110 0357468918) CREATININE (test code = 1.28 mg/dL 0.60-1.25 H 5102023357) TOTAL BILI (test code = 0.4 mg/dL 0.1-1.6 7547112121) CALCIUM (test code = 8.9 mg/dL 8.6-10.6 3910175864) T PROTEIN (test code = 6.0 g/dL 6.3-8.2 L 8587861165) ALBUMIN (test code = 3.5 g/dL 3.5-5.0 8767573914) ALK PHOS (test code = 67 U/L 34-122 0373049838) ALTv (test code = 18 U/L 5-50 1742-6) AST(SGOT) (test code = 22 U/L 13-40 0026974668) eGFR (test code = mL/min/1.73m2 7010746221) GILBERTO (test code = GILBERTO) Association of [...] tests). Lab Interpretation Abnormal (test code = 75810-9) [facility]. METABOLIC PANEL (74549)2021-09-08 02:29:45 Test Item Value Reference Range Interpretation Comments NA (test code = 138 mmol/L 135-145 6089959947) K (test code = 4.3 mmol/L 3.5-5.0 3276293201) CL (test code = 106 mmol/L 98-108 8931758585) CO2 TOTAL (test code = 27 mmol/L 23-31 6931430114) AGAP (test code = 2-16 6590067872) BUN (test code = 22 mg/dL 7-23 0147754407) GLUCOSE (test code = 90 mg/dL 70-110 9045436960) CREATININE (test code = 1.36 mg/dL 0.60-1.25 H 1643848968) TOTAL BILI (test code = 0.4 mg/dL 0.1-1.2 5080864679) CALCIUM (test code = 9.2 mg/dL 8.6-10.6 0830028082) T PROTEIN (test code = 6.5 g/dL 6.3-8.2 5171686787) ALBUMIN (test code = 3.8 g/dL 3.5-5.0 3009623592) ALK PHOS (test code = 73 U/L 34-122 9196252317) ALTv (test code = 19 U/L 5-50 1742-6) AST(SGOT) (test code = 24 U/L 13-40 8831710531) eGFR (test code = mL/min/1.73m2 8759176667) GILBERTO (test code = GILBERTO) Association of [...] tests). Lab Interpretation Abnormal (test code = 54823-5) [facility] 02:29:45 Test Item Value Reference Range Interpretation Comments LIPASE (test code = 5050901724) 75 U/L 0-220 Lab Interpretation (test code = Normal 73970-9) [facility] WITH [id number] 02:15:21 Test Item Value Reference Range Interpretation [...] RDW-SD (test code = 45.9 fL 38.5-51.6 26356-6) RDW-CV (test code = 13.6 % 12.1-15.4 788-0) PLT (test code = See_Comment [Automated 777-3) message] The sy stem which generated this result transmitted reference range : 150 - 328 10*3/ ?L. The reference r meredith was not used to interpret this result as normal/abnormal . MPV (test code = 9.4 fL 9.8-13.0 L 80667-5) NRBC/100 WBC (test See_Comment [Automat ed code = 7916962506) message] The system which generated this result transmitted reference range : 0.0 - 10.0 /100 WBCs. The refer ence range was not u sed to interpret th is result as normal/abnormal . NRBC x10^3 (test code <0.01 See_Comment [Auto mated = 3774696994) message] The s ystem which generated this result transmitted reference range : 10*3/?L. The reference range was not used to interpret this result as normal/abnormal . GRAN MAT (NEUT) % 66.0 % (test code = 770-8) IMM GRAN % (test code 0.50 % = 0051334917) LYMPH % (test code = 20.0 % 736-9) MONO % (test code = 9.8 % 5905-5) EOS % (test code = 3.5 % 713-8) BASO % (test code = 0.2 % 706-2) GRAN MAT x10^3(ANC) 3.77 10*3/uL 1.99-6.95 (test code = 7652557619) IMM GRAN x10^3 (test 0.03 10*3/uL 0.00-0.06 code = 8804822218) LYMPH x10^3 (test code 1.14 10*3/uL 1.09-3.23 = 731-0) MONO x10^3 (test code 0.56 10*3/uL 0.36-1.02 = 742-7) EOS x10^3 (test code = 0.20 10*3/uL 0.06-0.53 711-2) BASO x10^3 (test code <0.03 0.01-0.09 = 704-7) Lab Interpretation Abnormal (test code = 19238-5) [facility] CampusLactic Acid Whole [id number] 02:10:44 Test Item Value Reference Range Interpretation Comments LACTIC ACID (test code = 1.35 mmol/L 0.50-2.20 7157176245) Lab Interpretation (test code = Normal 12710-8) [facility] PATHOLOG[facility] [id number] 15:31:19 Test Item Value Reference Range Interpretation Comments Case Report (test code Surgical Pathology ? ? = [id number]) ?Case: [id number] ? Authorizing Provider: ?Bia Pedro MD ?Collected: ? 09/03/2021 0801 ?Ordering Location: ? ? [facility] OR ? Received: ?09/03/2021 08 ? Department ? Pathologist: ? Shaneka Douglas MD ? Specimen: ? ?ILEUM, Ileostomy ( staple ?end proximal ) ? Final Diagnosis (test w1hjzTGcNPCvr2qlUUExwS code = 4910151758) FuZzEwMzNcZnRuYmpcdWMx IHtccnRmMVxlcGljOTYwMV irluTnQJUxjLIpQ7Siyjlt FLwmKR1gUR2qlLlkrMBxzL RdPXQxOgWxn6czp126gGQa u1klVCZBeenvpUq8wWkuC1 7nj2V7YknjU67diFSnGHB7 WANeTBIdlTXvCKOfYOA4AM ZskVNzZ3dmLNPsSP6yjyzg SNlnNGccQMUpeXX4BBSzpF YkJ8EeGKAmSXmbJMXjkvq2 DvTpBb1wsPYzxXkySGwdGX JkXHBsYWluXGZzMjBccGFy IEEuIElMRVVNLCBJTEVPU1 FCFQg5JRGjrrNrHYYjTD7f QkVOSUdOIElMRUFMIFRJU1 TICEZZAHFXYTGWP8GWLK2U A26RTUseXAVWM7fQLdVtDB 1QAVMOOspGB6ZUOYAMRBLD RUxTLCBccGFyICAgICAgIC SZL99QKDNQQG0CHWpCPIlc MCtYT0MPM28NHWZhtpytEF JcZnMyMiBTcmkgQmhhcmF0 gQzvZ8G6yTOlVSVULpBKUP UrruwzRWZ3o6aqjSIxVMOo vYHjUlAsNHQqTHAol4euFO VmbGFuZzEwMzNcZnRuYmpc nJAgBQAxKrBfr3tru996nG Rdj3osJHWtAmH7hIBoLXGo wRafmvj2zYapByMyAWGup8 lzcyBcZmNoYXJzZXQwIEFy xJZuB020CBFdLCxad7klp7 TgPQKsyLZpz0C5ZWDNFXav DwVgH681q5fsb0cikdPhgY L2VKQlMZA9ZLgfouGwbyH3 UJkxzSLsEdZ9ATkznvSjTA auetLpdqJuRts4XRPjO943 QMQ2jUtkl4skUHB0BVUkSB BgZrocDe9rpICuC157MSLt NUKUKDEniLv3VYVpnsBujs HksLFYw504X985r8ydOFGv luBxuIiHrlahe3zzZ823LX BhcGVydzEyMjQwXHBhcGVy wKW8UPOxJI9sjoluFOrnHQ vmTSCsciN2GEGpbZJsC8Ef TSZsFE7bsozzYCW6UMsiSG EhCVW3RiEhCUDhh8Srufd2 EiBxod7dpg33KGL3p6ZvgH jpHOA6ZLF2GcYqSv7xeNYx PXAkZV1xCoCjtQNgIKHcqn 28oJksKFpovaMttO5bTcMk FHHjaOIkDUOpWC1aqLXuET CsfM8yvxgzYTEmFhVcpmms IJIshEmpugLkAv1azNlwOH Y7KDuvC4faqC8sTwE5MVoy Y5xdnQ2bEFh8SNvzgXX9SH YjgO8dYK9ctbesx3gyLQla YPvfTVTacqJ8pkI0NIHltY OnC7UdhR1dXBNjGJ7abmph j2abNDL5LYeoPWTaONP0Ql RdILCcb4Iiqcg7BvZfo3El nUKtJOnpO76od481GZAuaw ZaQ5wvlQSribmetJXmgnvp RJrzqzT5AOIwQPSaDGxdTK YxXGZzMjBcbGFuZzEwMzNc aGljaFxmMVxkYmNoXGYxXG srV0njPpAbS9BcUWRgYdJf jDRqAOysrRW1CFJvLAPjz6 8tnVe2SSAlaufao1VqIIYc yRWqiKZasM2kwmUlg9dhDT GaSWYbYEEoY7TqHOC8uESz QUEzhJOxrAV6KK5ejhUrDI 1hZGUgYnkgcmVzaWRlbnRz RKNwBSbhm7muKZ9wABDgiR tnnF1njPA7QQPrj5sspHFf gVEuq0hvt4WaogCiUUocPU GjFQetOWTjHVMsWU0yNLYy qFOqccLsf8S6KwccjPUryj naLhixusK5GFkapcygZOTx DWlfD4itImEaTBJiqQokFc jvm5OaGOPcTEDmLfjruSCo fX0= Clinical Information 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] 5192837457) Gross Description (test o5eylKKyWWNguGQARBVdBw code = 2820626995) avkwHqHTYzoXZzK4Ybyxpa GCczAW8rTS1mzSvcbGXpbM RcTM9QQRJoVqFuGHHylBYm ncZxPhIaRTMbdRRbzBN7NZ RmEK2tnmycILyyNSweVUQv gjZ4GJNthNTcX3KsAVGrBG 9dgmwtMUS2QDqitK2gdkQQ RrqcBg7zfCRljMcjQgCrRt NoYXJzZXQwXGZuaWwgQXJp DSz9eU4NPqilWFY0OZGMOm ogNJCrWW8Jy1vvDZSqyXVe VQQ5LGawjMGuJDYsCUFvHN k7WVPdTKnxpCLsCA0kgFpt VlapuGquv3BtbOFnIDorUG GwYJWhCPxtCNElJL4DFbMv FWgMEUXzZYGsNdQ0CTk7TY CBFkMsGlKaQOg8Tao5IoCj UNp1YNw7KMhXXsVrJTO1Og KbDcH5WMS4GGYaEBvyyVPp IFxcZiBBcmlhbCBcXGZzID PwHPucFwbiPOdmZ90jkXpn gG0hSzLvZJZNUnYWKIJWUR 3kcIIgHF3XGRVpGEokBGOa jQPSVDJ0TY7hFIFYVkozsN VuEZKaeJbnFUeukP6dZX8D GTc8haOzZNZtIkVtK3OmZ8 xpAD2uMSTrfjJpCRTmtRJh ZCBmcmVzaCBhbmQgbGFiZW vqBRF8iFYsPZXuNUTtVOXl AS21Y5JlyrJhVZohMRupwv GtAsDlEUDfxFQ4eWlwmTbz g1Q3j084NBTbhZHpxKJeCK 9aKOHsq1ojfLXvNhAwcmXk Y47dx2miuGFpm3VvTCU1YU 3kdDgbunXmPYmqUL35US4d TVOvEYvpDFUyh3NaZKb8Ch LhB40gwA1ccZYrU5LyRBE5 IDQuMiBjbSBpbiBkaWFtZX Owxgnem1r0lESzFIE3d94e PUtuPuldkGHgEpTbM19aCV acejTbRZygbRbbBHQ4kRfe FTLtuQGeCxL3YW8jRcVtw6 0cq8utqqQuqaQnGTQjxIMd pJJcFQAsv9NbmZlfvbNgYY VbgI4iZKDiNUMioQCypW2b biBpcyBvcGVuIHRvIHJldm AirAU6ZL7ckVlazpTcfr3o t8h0CJDhjrWoGHOuQDZzRQ BvoIXzv4ZbSOKCQLEcRIXj imJlyWj3OCCeVXY6cR5ixu WmqeLbx3NjdZk3xLKwSHso YKGxHTEtje60N5gzTUXeFM BhciANClxwYXIgDQpBMTog lOVniMpjXFfgoDAkC2fcMS KwNIHvAQGcvyMopGr3FXSf yYLgFM0GWZC0AQS7m73iTS WsHBPpNGOkgpGkyCy2PLjc DAWtKPdPWcpfWy35NPmuu7 YvtKxwyfNrndYuEK20BVAw ysIlzGGgYV6EBWPlqlJFQn P1jWyqUTx7RJP5HMqwTCL7 tN1dj8jzu7MlGaEFt2Bpi1 WfugRlv3U0GRMbcDunkR3h MQ7mvlxzCTQgUKS5m6MnMH SNIBtxaHdhaB7uTFFnG33d s6VQx8EaPVSoSZdnv8zdeS lih3JulMBjVPiuJTJqgQMe VVqzmM1pOvMln4wnkWp7XK syhbH2RFNotz2GYszjdW5p CdJuc2jywQg1TOKJDazuvm W3e2saqRozq2CniROiPI3S Cn0= Disclaimer (test code = s4ghoZLmTGDkz9kaOTYdnB 7175111042) FuZzEwMzNcZnRuYmpcdWMx OHlrsdGtVIigc6SiH2KwMw AwMFxhbnNpXGRlZmxhbmcx YJXvPRP7miXlHYQeAIxeBB RjLFraLv5ydFBehEtyVeVo WAMrs6fqmcJQHSuzKuKnL8 57RMSzJQmyz4ohd5AmMANu bPIoe4V6NPIUvpobkTs1tT gsM07kz9U6BejaK2vjMUBm PCYyR9LoRV3oOUMnShn1QX D7HWD3FSKpDGLzJ8LgCC9u JQHviKOgKTl6w0nrzXmmYC AcMFF6h4daCYxqubJxLV2s ve8neYk9p4nzdnYwCSLdSV MxnTELREQyR4VcbMufJj9k bYa4nAkkRofeEIP5Fas0FC 8cqg88vsv2tEqcANRsypjk LjA7AYteNIDesedmFCo0PN eqGAYjiTA1IAPfiDJsE3Nn BEUuBG4okwe0GVF9NVzzQQ CiCmP1KHTtrPQzAIFueSpm PUfec646IBB1HeXrQA0dS8 Dvn8V9nI7hnEDiTZKywCSg PaCoXHJode7hmZXbGKrhe6 DeUUJ2auI0fGCfrYFnNXZl WF61Kyevh9YcUdqrc0RvT1 1qyUV3PGksw5ecIT5vAmO6 ppOpVYejk0bsjE3oCgZ9BY dpGY8aLS2xNDNakB1zysft XHBnYnJkcmhlYWRccGdicm PyLs4huPyvREB7YMhbP2rm yM0iAzV6CUwmE3ntwW1gRA c7SYqjhLD6QLBwyZ0dNF7u ogccf8huGQatAFxzTQEpfa Y0ofR6RBHbvRCsT3VjtZ2z HATtSO2qowsmh2cdTIC6MA rjRJBeOSF9DkPrSCUvj5Ej fzd4JeBlp1WyfWWuVEpvI7 1px561RVBvugGzW1uxbAIm btyndQUqeltlMGhoctQ6WM JcduEdb2DyWMLgIHX3MBby TMylwHAeBJQtuAloz1xjI0 RscGFyXHBsYWluXGYxXGZz MjBcbGFuZzEwMzNcaGljaF nuGQphLiZwOVEqTCmrS2ay NbUrQ7WiXRYaPbChaGStW3 ggVGhpcyByZXBvcnQgbWF5 BAcyT5d4RSHmpdNfjWj4hs KsBsOsRYSiRCY1JTbilLJv IUMdj8KyfdrcsWIwZp8iyA CoDWUijE3aUQYvPBBmAPtp CY6gmWv1JWWKdORfyZQlLl ULOGOsJT52qoMpHAKYebvb s9Y5QBwyMVXqm0OqaXJvH9 fqi4XhWSJal26gJN4nj5H9 d8tcYGM1ES0fz3IrSDOviW CtyPMoYJDoj7Ckyheic0Cc REEfhqHpo3FuBKEemqNljN QhOSVdnpRlmm8tunVeEUVt KLLiL3OayfxbxPxbojJuYE Lsfj2bmoIgJWP0EOQCVYLm OPYww3ZwlJ5jzCDDCYB7yD Jrxf6hepAPlDMwUYXcaa35 UISpCC6hN9buBFKnBXIpcq AhrCCkt2CsDYZuhHB4hNZu HR8KItRFu32yWQTgOOZLww WiPHEgyCrtzWX3rsL3bC5j IChGREEpLlx+IFRoZSBGRE HoYO5ufhPdy2HzyyVpfEmt YZWvbVGyb0AsbLKxv3EzdJ dfg3LlnAStdAQzFV6tSYDd clxwYXIgVVRNQiBMYWJvcm Z0f4XhUIQuTWSfHKE6mBsv teq1RBJopQ4nWGEiL9clop bbFGnxPNUfx5UhdQ1aoZEB pJCvr5PafSRutXBLxMYhFX 8theYoQZiIHEbJJBA3ltOt BFBtg6JvWZbwT3pyE20wkC ikaNw5mXE8IIH5cR1aUpr+ IFxwYXJccGFyIEFwcHJvcH BfCCKemSzdzgUzT0BjdwSx yQ0ywSClooPjJR9yYX3nB3 C0mOUuAEZyttVpz9zqQTqq dmUgYmVlbiByZXZpZXdlZC Fke9OzMKfmXHY9PWpkhiVf bmNsdWRpbmcgSCZFLCBTcG PcnVZjPAT1WMwbxfOjlaTm PD5bgV2djZpseB6aqTJrcH M6dpjoWEJfEOJynFlrYWDj KY8ovTJfEXUppqBMdLgpfH TylH3oF2XeKOPcLTBrnz5d KPMvzF9aHArmb4VwvtgiPZ RiNAOiPEAwugHdcm2jCVHz oTAXHA4ENFohoYVzg1Wmql OsT4vPAPL2CWZkMuWiZlbk XMUvtRJitGWhHSTell06BL CkzA5ycNfnXYKfgC5xfJ3o pYuzcB5hGqOfTyEgLUelPX 3sXSSpN3ycsZZdXUWhCDPb W4sbAdCloQ6kxPrwIMhjQo QdTsUvSYhaFJO0wS== Embedded Images (test code = 5082319624) [facility] - Peripheral [id number] 09:01:06 Test Item Value Reference Range Interpretation Comments Blood Culture-Aerobic No organisms No growth Previo us (test code = 56386-6) isolated prelim inary verified result was Culture In Progress on 08/31/2021 at 060 1 CSTPrevious preliminary verified result was No growth a t 24 hours on 09/01/2021 at 030 1 CSTPrevious preliminary verified result was No growth a t 48 hours on 09/02/2021 at 03 01 CSTPrevious preliminary verified result was No growth a t 72 hours on 09/03/2021 at 03 01 [employer] Blood No organisms No growth Previous Culture-Anaerobic isolated preliminar y (test code = 58811-8) verifi ed result was Culture In Progress on 08/31/2021 at 060 1 CSTPrevious preliminary verified result was No growth a t 24 hours on 09/01/2021 at 030 1 CSTPrevious preliminary verified result was No growth a t 48 hours on 09/02/2021 at 03 01 CSTPrevious preliminary verified result was No growth a t 72 hours on 09/03/2021 at 03 01 [employer] Lab Interpretation Normal (test code = 92034-0) [facility] METABOLIC PANEL (NA, K, CL, CO2, GLUCOSE, BUN, CREATININE, CA)2021-09-04 13:22:54 Test Item Value Reference Range Interpretation Comments NA (test code = 132 mmol/L 135-145 L 2795350413) K (test code = 4.3 mmol/L 3.5-5.0 4827006669) CL (test code = 104 mmol/L 98-108 5717193370) CO2 TOTAL (test code = 23 mmol/L 23-31 9214666132) AGAP (test code = 2-16 7185916639) BUN (test code = 15 mg/dL 7-23 8205293501) GLUCOSE (test code = 96 mg/dL 70-110 2643329003) CREATININE (test code = 1.42 mg/dL 0.60-1.25 H 1760845107) CALCIUM (test code = 8.7 mg/dL 8.6-10.6 6668778980) eGFR (test code = mL/min/1.73m2 0820821321) GILBERTO (test code = GILBERTO) Association of [...] tests). Lab Interpretation Abnormal (test code = 20854-8) [facility] (NA, K, CL, CO2, GLUCOSE, BUN, CREATININE, CA)2021-09-04 13:22:54 Test Item Value Reference Range Interpretation Comments NA (test code = 132 mmol/L 135-145 L 2475466530) K (test code = 4.3 mmol/L 3.5-5.0 0002799773) CL (test code = 104 mmol/L 98-108 9789006325) CO2 TOTAL (test code = 23 mmol/L 23-31 8227734386) AGAP (test code = 2-16 8617021628) BUN (test code = 15 mg/dL 7-23 8304429537) GLUCOSE (test code = 96 mg/dL 70-110 7203526658) CREATININE (test code = 1.42 mg/dL 0.60-1.25 H 3688212237) CALCIUM (test code = 8.7 mg/dL 8.6-10.6 2880702305) eGFR (test code = mL/min/1.73m2 7963519223) GILBERTO (test code = GILBERTO) Association of [...] tests). Lab Interpretation Abnormal (test code = 44685-4) [facility] CULTURE [id number] 17:16:36 Test Item Value Reference Range Interpretation Comments Blood Culture Coagulase negative Addition al Workup (test Staphylococcus work-up perfo rmed code = 600-7) only per reque st. Culture plate(s ) will be saved until this date : 09/08/21 Gram stain Isolated from aerobic (test code = bottle Gram positive 664-3) cocci in clusters [facility] CULTURE [id number] 17:16:36 Test Item Value Reference Range Interpretation Comments Blood Culture Coagulase negative Addition al Workup (test Staphylococcus work-up perfo rmed code = 600-7) only per reque st. Culture plate(s ) will be saved until this date : 09/08/21 Gram stain Isolated from aerobic (test code = bottle Gram positive 664-3) cocci in clusters [facility] Culture - Peripheral Vein # 17:16:26 Test Item Value Reference Range Interpretation Comments Blood Culture-Aerobic Culture positive. No growth AA P revious (test code = 11723-1) See Blood Culture p reliminary Workup for verified result additional was Culture In information. Progress on 08/31/2021 at 060 1 [employer] Blood No organisms No growth Previous Culture-Anaerobic isolated preliminar y (test code = 35057-9) verifi ed result was Culture In Progress on 09/01/2021 at 012 7 [employer] Lab Interpretation Abnormal (test code = 04700-5) [facility] Culture - Peripheral Vein # 17:16:26 Test Item Value Reference Range Interpretation Comments Blood Culture-Aerobic Culture positive. No growth AA P revious (test code = 66830-7) See Blood Culture p reliminary Workup for verified result additional was Culture In information. Progress on 08/31/2021 at 060 1 [employer] Blood No organisms No growth Previous Culture-Anaerobic isolated preliminar y (test code = 95534-9) verifi ed result was Culture In Progress on 09/01/2021 at 012 7 [employer] Lab Interpretation Abnormal (test code = 68473-1) [facility] (NA, K, CL, CO2, GLUCOSE, BUN, CREATININE, CA)2021-09-03 12:16:04 Test Item Value Reference Range Interpretation Comments NA (test code = 130 mmol/L 135-145 L 2147330082) K (test code = 4.1 mmol/L 3.5-5.0 2780189804) CL (test code = 103 mmol/L 98-108 5403447305) CO2 TOTAL (test code = 21 mmol/L 23-31 L 0182250167) AGAP (test code = 2-16 7312868228) BUN (test code = 14 mg/dL 7-23 5673134818) GLUCOSE (test code = 90 mg/dL 70-110 3572743762) CREATININE (test code = 1.28 mg/dL 0.60-1.25 H 1882460804) CALCIUM (test code = 8.8 mg/dL 8.6-10.6 6916742999) eGFR (test code = mL/min/1.73m2 7051616286) GILBERTO (test code = GILBERTO) Association of [...] tests). Lab Interpretation Abnormal (test code = 25536-7) [facility] METABOLIC PANEL (NA, K, CL, CO2, GLUCOSE, BUN, CREATININE, CA)2021-09-03 12:16:04 Test Item Value Reference Range Interpretation Comments NA (test code = 130 mmol/L 135-145 L 9741950012) K (test code = 4.1 mmol/L 3.5-5.0 3688892158) CL (test code = 103 mmol/L 98-108 1198632550) CO2 TOTAL (test code = 21 mmol/L 23-31 L 3345134721) AGAP (test code = 2-16 9103316564) BUN (test code = 14 mg/dL 7-23 3082121677) GLUCOSE (test code = 90 mg/dL 70-110 0599957259) CREATININE (test code = 1.28 mg/dL 0.60-1.25 H 4951677838) CALCIUM (test code = 8.8 mg/dL 8.6-10.6 0875036766) eGFR (test code = mL/min/1.73m2 8122014989) GILBERTO (test code = GILBERTO) Association of [...] tests). Lab Interpretation Abnormal (test code = 47191-5) [facility] WITHOUT [id number] 11:53:39 Test Item Value Reference Range Interpretation Comments WBC (test code = 6690-2) See_Comment [A utomated message] The system [employer] generated this result transmit dain reference range : 4.20 - 10.70 10*3/?L. The reference range was not used to interpret this result as normal/abnormal . RBC (test code = 789-8) See_Comment L [Au tomated message] The system [employer] generated this result transmit dain reference range [...] 777-3) See_Comment [Au tomated message] The system [employer] generated this result transmit dain reference range : 150 - 328 10*3/?L. The reference range was not used to interpret this result as normal/abnormal . MPV (test code = 10.1 fL 9.8-13.0 19259-2) RDW-CV (test code = 13.5 % 12.1-15.4 788-0) RDW-SD (test code = 44.6 fL 38.5-51.6 99329-1) NRBC x10^3 (test code = <0.01 See_Comment [Au tomated message] 4555119058) The system [employer] generated this result transmit dain reference range : 10*3/?L. The reference range was not used to interpret this result as normal/abnormal . NRBC/100 WBC (test code See_Comment [Au tomated message] = 8078935323) The system [facility] generated this result transmit dain reference range : 0.0 - 10.0 /100 WBC s. The reference r meredith was not used to interpret this result as normal/abnormal . IPF % (test code = 1136667350) Lab Interpretation (test Abnormal code = 94324-5) [facility] WITHOUT [id number] 11:53:39 Test Item Value Reference Range Interpretation Comments WBC (test code = 6690-2) See_Comment [A utomated message] The system [employer] generated this result transmit dain reference range : 4.20 - 10.70 10*3/?L. The reference range was not used to interpret this result as normal/abnormal . RBC (test code = 789-8) See_Comment L [Au tomated message] The system [employer] generated this result transmit dain reference range [...] 777-3) See_Comment [Au tomated message] The system [facility] generated this result transmit dain reference range : 150 - 328 10*3/?L. The reference range was not used to interpret this result as normal/abnormal . MPV (test code = 10.1 fL 9.8-13.0 36983-4) RDW-CV (test code = 13.5 % 12.1-15.4 788-0) RDW-SD (test code = 44.6 fL 38.5-51.6 89069-0) NRBC x10^3 (test code = <0.01 See_Comment [Au tomated message] [id number]) The system [facility] generated this result transmit dain reference range : 10*3/?L. The reference range was not used to interpret this result as normal/abnormal . NRBC/100 WBC (test code See_Comment [Au tomated message] = 1043007915) The system [facility] generated this result transmit dain reference range : 0.0 - 10.0 /100 WBC s. The reference r meredith was not used to interpret this result as normal/abnormal . IPF % (test code = 7120522688) Lab Interpretation (test Abnormal code = 97264-0) [facility] METABOLIC PANEL (NA, K, CL, CO2, GLUCOSE, BUN, CREATININE, CA)2021-09-02 12:06:01 Test Item Value Reference Range Interpretation Comments NA (test code = 132 mmol/L 135-145 L 5187289081) K (test code = 4.4 mmol/L 3.5-5.0 7648021990) CL (test code = 106 mmol/L 98-108 6709461785) CO2 TOTAL (test code = 22 mmol/L 23-31 L 6214289096) AGAP (test code = 2-16 1082027062) BUN (test code = 16 mg/dL 7-23 2736681251) GLUCOSE (test code = 83 mg/dL 70-110 3016736870) CREATININE (test code = 1.33 mg/dL 0.60-1.25 H 0730185234) CALCIUM (test code = 8.8 mg/dL 8.6-10.6 2912453596) eGFR (test code = mL/min/1.73m2 1703102382) GILBERTO (test code = GILBERTO) Association of [...] tests). Lab Interpretation Abnormal (test code = 03480-3) [facility] METABOLIC PANEL (NA, K, CL, CO2, GLUCOSE, BUN, CREATININE, CA)2021-09-02 12:06:01 Test Item Value Reference Range Interpretation Comments NA (test code = 132 mmol/L 135-145 L 2039686700) K (test code = 4.4 mmol/L 3.5-5.0 8896362886) CL (test code = 106 mmol/L 98-108 0274341017) CO2 TOTAL (test code = 22 mmol/L 23-31 L 3960640627) AGAP (test code = 2-16 6783139934) BUN (test code = 16 mg/dL 7-23 7654050450) GLUCOSE (test code = 83 mg/dL 70-110 9201239718) CREATININE (test code = 1.33 mg/dL 0.60-1.25 H 0326763188) CALCIUM (test code = 8.8 mg/dL 8.6-10.6 4391892222) eGFR (test code = mL/min/1.73m2 9441439611) GILBERTO (test code = GILBERTO) Association of [...] tests). Lab Interpretation Abnormal (test code = 14819-8) [facility] METABOLIC PANEL (NA, K, CL, CO2, GLUCOSE, BUN, CREATININE, CA)2021-09-01 21:55:22 Test Item Value Reference Range Interpretation Comments NA (test code = 130 mmol/L 135-145 L 3806040676) K (test code = 4.2 mmol/L 3.5-5.0 2137213700) CL (test code = 103 mmol/L 98-108 4376292097) CO2 TOTAL (test code = 20 mmol/L 23-31 L 1625329482) AGAP (test code = 2-16 3527874619) BUN (test code = 20 mg/dL 7-23 9706241302) GLUCOSE (test code = 106 mg/dL 70-110 4907837970) CREATININE (test code = 1.51 mg/dL 0.60-1.25 H 9624911012) CALCIUM (test code = 8.5 mg/dL 8.6-10.6 L 6917367815) eGFR (test code = mL/min/1.73m2 0071847564) GILBERTO (test code = GILBERTO) Association of [...] tests). Lab Interpretation Abnormal (test code = 54211-7) [facility] METABOLIC PANEL (NA, K, CL, CO2, GLUCOSE, BUN, CREATININE, CA)2021-09-01 21:55:22 Test Item Value Reference Range Interpretation Comments NA (test code = 130 mmol/L 135-145 L 2275506598) K (test code = 4.2 mmol/L 3.5-5.0 2403032323) CL (test code = 103 mmol/L 98-108 1655504962) CO2 TOTAL (test code = 20 mmol/L 23-31 L 9519408891) AGAP (test code = 2-16 8107955186) BUN (test code = 20 mg/dL 7-23 8482260521) GLUCOSE (test code = 106 mg/dL 70-110 2250025114) CREATININE (test code = 1.51 mg/dL 0.60-1.25 H 1361761918) CALCIUM (test code = 8.5 mg/dL 8.6-10.6 L 6586633431) eGFR (test code = mL/min/1.73m2 1190076128) GILBERTO (test code = GILBERTO) Association of [...] tests). Lab Interpretation Abnormal (test code = 11559-8) [facility] [id number] 10:31:32 Test Item Value Reference Range Interpretation Comments Coagulase Negative Positive Negative, See A Staphylococcus (test Comment/Narrative code = 06905-5) GILBERTO (test code = GILBERTO) Coagulase negative [...] contact the [facility]im[facility]wardship Program with questions.Pager: ?[phone] Testing included eleven identification and three resistance marker targets. Lab Interpretation Abnormal (test code = 60906-6) [facility] DNA [id number] 10:31:32 Test Item Value Reference Range Interpretation Comments Coagulase Negative Positive Negative, See A Staphylococcus (test Comment/Narrative code = 83205-9) GILBERTO (test code = GILBERTO) Coagulase negative [...] contact the Antimicrobial Stewardship Program with questions.Pager: ?[phone] Testing included eleven identification and three resistance marker targets. Lab Interpretation Abnormal (test code = 13450-6) [facility] (NA, K, CL, CO2, GLUCOSE, BUN, CREATININE, CA)2021-09-01 08:38:47 Test Item Value Reference Range Interpretation Comments NA (test code = 130 mmol/L 135-145 L 4648050298) K (test code = 4.0 mmol/L 3.5-5.0 0806266396) CL (test code = 105 mmol/L 98-108 1997955041) CO2 TOTAL (test code = 20 mmol/L 23-31 L 6179262848) AGAP (test code = 2-16 3534666474) BUN (test code = 21 mg/dL 7-23 5007056869) GLUCOSE (test code = 88 mg/dL 70-110 6189246002) CREATININE (test code = 1.31 mg/dL 0.60-1.25 H 2769038826) CALCIUM (test code = 8.5 mg/dL 8.6-10.6 L 0636281008) eGFR (test code = mL/min/1.73m2 8892333524) GILBERTO (test code = GILBERTO) Association of [...] tests). Lab Interpretation Abnormal (test code = 84044-4) [facility] METABOLIC PANEL (NA, K, CL, CO2, GLUCOSE, BUN, CREATININE, [place])2021-09-01 08:38:47 Test Item Value Reference Range Interpretation Comments NA (test code = 130 mmol/L 135-145 L 5930260753) K (test code = 4.0 mmol/L 3.5-5.0 3722457938) CL (test code = 105 mmol/L 98-108 4949914708) CO2 TOTAL (test code = 20 mmol/L 23-31 L 1778036946) AGAP (test code = 2-16 8143949726) BUN (test code = 21 mg/dL 7-23 6085059201) GLUCOSE (test code = 88 mg/dL 70-110 6399442667) CREATININE (test code = 1.31 mg/dL 0.60-1.25 H 8347863117) CALCIUM (test code = 8.5 mg/dL 8.6-10.6 L 9848553552) eGFR (test code = mL/min/1.73m2 6017823010) GILBERTO (test code = GILBERTO) Association of [...] tests). Lab Interpretation Abnormal (test code = 83080-5) [facility] WITH [id number] 08:13:43 Test Item Value Reference Range Interpretation Comments WBC (test code = See_Comment [Automated 4784-2) message] The sy stem which generated this [...] RDW-SD (test code = 43.0 fL 38.5-51.6 85500-2) RDW-CV (test code = 13.7 % 12.1-15.4 788-0) PLT (test code = See_Comment [Automated 777-3) message] The sy stem which generated this result transmitted reference range : 150 - 328 10*3/ ?L. The reference r meredith was not used to interpret this result as normal/abnormal . MPV (test code = 9.9 fL 9.8-13.0 31423-3) NRBC/100 WBC (test See_Comment [Automat ed code = 1827863567) message] The system which generated this result transmitted reference range : 0.0 - 10.0 /100 WBCs. The refer ence range was not u sed to interpret th is result as normal/abnormal . NRBC x10^3 (test code <0.01 See_Comment [Auto mated = 3486604565) message] The s ystem which generated this result transmitted reference range : 10*3/?L. The reference range was not used to interpret this result as normal/abnormal . GRAN MAT (NEUT) % 48.2 % (test code = 770-8) IMM GRAN % (test code 0.40 % = 4083100740) LYMPH % (test code = 39.5 % 736-9) MONO % (test code = 9.0 % 5905-5) EOS % (test code = 2.3 % 713-8) BASO % (test code = 0.6 % 706-2) GRAN MAT x10^3(ANC) 2.35 10*3/uL 1.99-6.95 (test code = 8063785661) IMM GRAN x10^3 (test <0.03 0.00-0.06 code = 0337190272) LYMPH x10^3 (test code 1.93 10*3/uL 1.09-3.23 = 731-0) MONO x10^3 (test code 0.44 10*3/uL 0.36-1.02 = 742-7) EOS x10^3 (test code = 0.11 10*3/uL 0.06-0.53 711-2) BASO x10^3 (test code 0.03 10*3/uL 0.01-0.09 = 704-7) Lab Interpretation Abnormal (test code = 56887-9) [facility] WITH [id number] 08:13:43 Test Item Value Reference Range Interpretation [...] RDW-SD (test code = 43.0 fL 38.5-51.6 60985-6) RDW-CV (test code = 13.7 % 12.1-15.4 788-0) PLT (test code = See_Comment [Automated 777-3) message] The sy stem which generated this result transmitted reference range : 150 - 328 10*3/ ?L. The reference r meredith was not used to interpret this result as normal/abnormal . MPV (test code = 9.9 fL 9.8-13.0 79429-2) NRBC/100 WBC (test See_Comment [Automat ed code = 0468276430) message] The system which generated this result transmitted reference range : 0.0 - 10.0 /100 WBCs. The refer ence range was not u sed to interpret th is result as normal/abnormal . NRBC x10^3 (test code <0.01 See_Comment [Auto mated = 1116354823) message] The s ystem which generated this result transmitted reference range : 10*3/?L. The reference range was not used to interpret this result as normal/abnormal . GRAN MAT (NEUT) % 48.2 % (test code = 770-8) IMM GRAN % (test code 0.40 % = 3411792544) LYMPH % (test code = 39.5 % 736-9) MONO % (test code = 9.0 % 5905-5) EOS % (test code = 2.3 % 713-8) BASO % (test code = 0.6 % 706-2) GRAN MAT x10^3(ANC) 2.35 10*3/uL 1.99-6.95 (test code = 9781275346) IMM GRAN x10^3 (test <0.03 0.00-0.06 code = 0877602550) LYMPH x10^3 (test code 1.93 10*3/uL 1.09-3.23 = 731-0) MONO x10^3 (test code 0.44 10*3/uL 0.36-1.02 = 742-7) EOS x10^3 (test code = 0.11 10*3/uL 0.06-0.53 711-2) BASO x10^3 (test code 0.03 10*3/uL 0.01-0.09 = 704-7) Lab Interpretation Abnormal (test code = 62848-8) [id number]37[facility] Test Item Value Reference Range Interpretation Comments MAGNESIUM (test code = 1203709452) 1.9 mg/dL 1.7-2.4 Lab Interpretation (test code = Normal 31098-6[id number] 06:37:20 Test Item Value Reference Range Interpretation Comments MAGNESIUM (test code = 4891298192) 1.9 mg/dL 1.7-2.4 Lab Interpretation (test code = Normal 15044-9) [facility] METABOLIC PANEL (NA, K, CL, CO2, GLUCOSE, BUN, CREATININE, [place])2021-09-01 02:46:47 Test Item Value Reference Range Interpretation Comments NA (test code = 132 mmol/L 135-145 L 1323160020) K (test code = 4.0 mmol/L 3.5-5.0 8456942479) CL (test code = 102 mmol/L 98-108 6474221086) CO2 TOTAL (test code = 21 mmol/L 23-31 L 8175326692) AGAP (test code = 2-16 4253413417) BUN (test code = 24 mg/dL 7-23 H 9189293548) GLUCOSE (test code = 95 mg/dL 70-110 3328951207) CREATININE (test code = 1.40 mg/dL 0.60-1.25 H 2580578128) CALCIUM (test code = 8.6 mg/dL 8.6-10.6 0494400072) eGFR (test code = mL/min/1.73m2 6819587525) GILBERTO (test code = GILBERTO) Association of [...] tests). Lab Interpretation Abnormal (test code = 76562-6) [facility] METABOLIC PANEL (NA, K, CL, CO2, GLUCOSE, BUN, CREATININE, [place])2021-09-01 02:46:47 Test Item Value Reference Range Interpretation Comments NA (test code = 132 mmol/L 135-145 L 1911068747) K (test code = 4.0 mmol/L 3.5-5.0 3061828215) CL (test code = 102 mmol/L 98-108 5803238721) CO2 TOTAL (test code = 21 mmol/L 23-31 L 2461098474) AGAP (test code = 2-16 0749357985) BUN (test code = 24 mg/dL 7-23 H 9410348332) GLUCOSE (test code = 95 mg/dL 70-110 7023489648) CREATININE (test code = 1.40 mg/dL 0.60-1.25 H 0556591912) CALCIUM (test code = 8.6 mg/dL 8.6-10.6 9395237390) eGFR (test code = mL/min/1.73m2 8006909305) GILBERTO (test code = GILBERTO) Association of [...] tests). Lab Interpretation Abnormal (test code = 32616-0) [facility] [id number] 12:49:48 Test Item Value Reference Range Interpretation Comments LACTIC ACID (test code = 2.02 mmol/L 0.50-2.20 QUE S 2188805836) Lab Interpretation (test code = Normal 93443-2) [facility] Whole [id number] 12:49:48 Test Item Value Reference Range Interpretation Comments LACTIC ACID (test code = 2.02 mmol/L 0.50-2.20 QUE S 1245384478) Lab Interpretation (test code = Normal 69949-3) [facility] (NA, K, CL, CO2, GLUCOSE, BUN, CREATININE, [place])2021-08-31 12:29:06 Test Item Value Reference Range Interpretation Comments NA (test code = 129 mmol/L 135-145 L 4784911617) K (test code = 3.6 mmol/L 3.5-5.0 5400128869) CL (test code = 101 mmol/L 98-108 7320678870) CO2 TOTAL (test code = 18 mmol/L 23-31 L 6549503286) AGAP (test code = 2-16 9950750872) BUN (test code = 35 mg/dL 7-23 H 0410168656) GLUCOSE (test code = 97 mg/dL 70-110 4852254692) CREATININE (test code = 1.58 mg/dL 0.60-1.25 H 4437305037) CALCIUM (test code = 8.3 mg/dL 8.6-10.6 L 5646170724) eGFR (test code = mL/min/1.73m2 2515972794) GIBLERTO (test code = GILBERTO) Association of [...] tests). Lab Interpretation Abnormal (test code = 14614-4) [facility] METABOLIC PANEL (NA, K, CL, CO2, GLUCOSE, BUN, CREATININE, [place])2021-08-31 12:29:06 Test Item Value Reference Range Interpretation Comments NA (test code = 129 mmol/L 135-145 L 7058124417) K (test code = 3.6 mmol/L 3.5-5.0 3415683856) CL (test code = 101 mmol/L 98-108 4850829328) CO2 TOTAL (test code = 18 mmol/L 23-31 L 8521772110) AGAP (test code = 2-16 2313353074) BUN (test code = 35 mg/dL 7-23 H 4373151412) GLUCOSE (test code = 97 mg/dL 70-110 5777487235) CREATININE (test code = 1.58 mg/dL 0.60-1.25 H 9771512356) CALCIUM (test code = 8.3 mg/dL 8.6-10.6 L 9767353634) eGFR (test code = mL/min/1.73m2 0523490536) GILBERTO (test code = GILBERTO) Association of [...] tests). Lab Interpretation Abnormal (test code = 80018-3) [facility] CampusTHYROID STIMULATING [id number] 07:42:44 Test Item Value Reference Range Interpretation Comments TSH (test code = See_Comment [Automated message] 9025222874) The system The [employer] generated this result transmitted ref erence range: 0.45 - 4 .70 mIU/L. The refe rence range was not u sed to interpret this result as normal/abnor mal. Lab Interpretation (test Normal code = 55362-6) [facility] CampusTHYROID STIMULATING [id number] 07:42:44 Test Item Value Reference Range Interpretation Comments TSH (test code = See_Comment [Automated message] 8760402317) The system [employer] generated this result transmitted ref erence range: 0.45 - 4 .70 mIU/L. The refe rence range was not u sed to interpret this result as normal/abnor mal. Lab Interpretation (test Normal code = 90504-7) [facility] METABOLIC PANEL (NA, K, CL, CO2, GLUCOSE, BUN, CREATININE, [place])2021-08-31 07:40:43 Test Item Value Reference Range Interpretation Comments NA (test code = 129 mmol/L 135-145 L 8617475122) K (test code = 3.8 mmol/L 3.5-5.0 Slight 4214082144) hemolysis CL (test code = 102 mmol/L 98-108 1968105889) CO2 TOTAL (test code 18 mmol/L 23-31 L = 8385705573) AGAP (test code = 2-16 9181002401) BUN (test code = 46 mg/dL 7-23 H Slight 7262960001) hemolysis GLUCOSE (test code = 100 mg/dL 70-110 5161016557) CREATININE (test code 1.72 mg/dL 0.60-1.25 H = 1181851180) CALCIUM (test code = 8.5 mg/dL 8.6-10.6 L 9785175745) eGFR (test code = mL/min/1.73m2 4764043404) GILBERTO (test code = GILBERTO) Association of [...] tests). Lab Interpretation Abnormal (test code = 76552-6) [facility] METABOLIC PANEL (NA, K, CL, CO2, GLUCOSE, BUN, CREATININE, [place])2021-08-31 07:40:43 Test Item Value Reference Range Interpretation Comments NA (test code = 129 mmol/L 135-145 L 3021750841) K (test code = 3.8 mmol/L 3.5-5.0 Slight 7505435310) hemolysis CL (test code = 102 mmol/L 98-108 6563454132) CO2 TOTAL (test code 18 mmol/L 23-31 L = 5469186425) AGAP (test code = 2-16 7778474320) BUN (test code = 46 mg/dL 7-23 H Slight 0327018925) hemolysis GLUCOSE (test code = 100 mg/dL 70-110 2996002235) CREATININE (test code 1.72 mg/dL 0.60-1.25 H = 4615411559) CALCIUM (test code = 8.5 mg/dL 8.6-10.6 L 0583561965) eGFR (test code = mL/min/1.73m2 6117878025) GILBERTO (test code = GILBERTO) Association of [...] tests). Lab Interpretation Abnormal (test code = 40351-6) [facility] CampusLactic Acid Whole [id number] 07:08:01 Test Item Value Reference Range Interpretation Comments LACTIC ACID (test code = 1.96 mmol/L 0.50-2.20 QUE S 4536858792) Lab Interpretation (test code = Normal 11654-4) [facility] CampusLactic Acid Whole [id number] 07:08:01 Test Item Value Reference Range Interpretation Comments LACTIC ACID (test code = 1.96 mmol/L 0.50-2.20 QUE S 4329627242) Lab Interpretation (test code = Normal 84184-9) [facility] CampusOSMOLALITY, SERUM OR [id number] 06:33:43 Test Item Value Reference Range Interpretation Comments OSMOLALITY (test code = See_Comment [Au tomated message] 6484132224) The system The [employer] generated this result transmitted ref erence range: 278 - 30 5 mOsm/kg. The re ference range was not u sed to interpret this result as normal/abnor mal. Lab Interpretation (test Normal code = 70213-0) [facility], SERUM OR [id number] 06:33:43 Test Item Value Reference Range Interpretation Comments OSMOLALITY (test code = See_Comment [Au tomated message] 1784470866) The system The [employer] generated this result transmitted ref erence range: 278 - 30 5 mOsm/kg. The re ference range was not u sed to interpret this result as normal/abnor mal. Lab Interpretation (test Normal code = 59470-0) [facility] [id number] 04:28:44 Test Item Value Reference Interpretation Comments Range TROPONIN I (test 0.003 ng/mL See_Comment [Automated code = 6240258574) message] The system which generated this result [...] biotin. Lab Interpretation Normal (test code = 18765-4) [facility] [id number] 04:28:44 Test Item Value Reference Interpretation Comments Range TROPONIN I (test 0.003 ng/mL See_Comment [Automated code = 2812149494) message] The system which generated this result [...] biotin. Lab Interpretation Normal (test code = 62599-6) [facility] METABOLIC PANEL (NA, K, CL, CO2, GLUCOSE, BUN, CREATININE, [place])2021-08-31 04:07:42 Test Item Value Reference Range Interpretation Comments NA (test code = 125 mmol/L 135-145 L 7467990346) K (test code = 4.1 mmol/L 3.5-5.0 Slight 9258144613) hemolysis CL (test code = 100 mmol/L 98-108 5603341250) CO2 TOTAL (test code 17 mmol/L 23-31 L = 0042634574) AGAP (test code = 2-16 2888442601) BUN (test code = 52 mg/dL 7-23 H Slight 8267821240) hemolysis GLUCOSE (test code = 94 mg/dL 70-110 9866748067) CREATININE (test code 1.77 mg/dL 0.60-1.25 H = 5614411373) CALCIUM (test code = 8.2 mg/dL 8.6-10.6 L 6770899529) eGFR (test code = mL/min/1.73m2 0861833910) GILBERTO (test code = GILBERTO) Association of [...] tests). Lab Interpretation Abnormal (test code = 73716-3) [facility] (NA, K, CL, CO2, GLUCOSE, BUN, CREATININE, [place])2021-08-31 04:07:42 Test Item Value Reference Range Interpretation Comments NA (test code = 125 mmol/L 135-145 L 3203417583) K (test code = 4.1 mmol/L 3.5-5.0 Slight 8725799309) hemolysis CL (test code = 100 mmol/L 98-108 3820699211) CO2 TOTAL (test code 17 mmol/L 23-31 L = 8535137635) AGAP (test code = 2-16 0170031073) BUN (test code = 52 mg/dL 7-23 H Slight 4477261583) hemolysis GLUCOSE (test code = 94 mg/dL 70-110 8859261359) CREATININE (test code 1.77 mg/dL 0.60-1.25 H = 6663320550) CALCIUM (test code = 8.2 mg/dL 8.6-10.6 L 6148599695) eGFR (test code = mL/min/1.73m2 3441999669) GILBERTO (test code = GILBERTO) Association of [...] tests). Lab Interpretation Abnormal (test code = 49463-0) [facility] CampusCLARAEddie [id number] 00:22:59 Test Item Value Reference Interpretation Comments Range TROPONIN I (test 0.003 ng/mL See_Comment [Automated code = 9953598125) message] The system which generated this result [...] biotin. Lab Interpretation Normal (test code = 66749-6) [facility] CampusN-TERMINAL [id number] 00:22:59 Test Item Value Reference Range Interpretation Comments NT-proBNP (test code 55 pg/mL See_Comment [Autom ated = 1876168474) message] The system which generated this result transmitted reference range : <=125. The reference range was not used to interpret this result as normal/abnormal . GILBERTO (test code = GILBERTO) Biotin has been reported to cause a negative bias, interpret results relative to patient's use of biotin. Lab Interpretation Normal (test code = 99191-0) [facility] CampusTROPONIN [id number] 00:22:59 Test Item Value Reference Interpretation Comments Range TROPONIN I (test 0.003 ng/mL See_Comment [Automated code = 6678903494) message] The system which generated this result [...] biotin. Lab Interpretation Normal (test code = 97657-0) [facility] CampusN-TERMINAL [id number] 00:22:59 Test Item Value Reference Range Interpretation Comments NT-proBNP (test code 55 pg/mL See_Comment [Autom ated = 2436424769) message] The system which generated this result transmitted reference range : <=125. The reference range was not used to interpret this result as normal/abnormal . GILBERTO (test code = GILBERTO) Biotin has been reported to cause a negative bias, interpret results relative to patient's use of biotin. Lab Interpretation Normal (test code = 95491-9) [facility]. METABOLIC PANEL (86300)2021-08-31 00:07:17 Test Item Value Reference Range Interpretation Comments NA (test code = 126 mmol/L 135-145 L 4826843360) K (test code = 4.3 mmol/L 3.5-5.0 Slight 8981142451) hemolysis CL (test code = 96 mmol/L 98-108 L 5714020851) CO2 TOTAL (test code 18 mmol/L 23-31 L = 2946598384) AGAP (test code = 2-16 3851014010) BUN (test code = 58 mg/dL 7-23 H Slight 8259966008) hemolysis GLUCOSE (test code = 108 mg/dL 70-110 5790727651) CREATININE (test code 2.11 mg/dL 0.60-1.25 H = 4480845647) TOTAL BILI (test code 0.7 mg/dL 0.1-1.1 = 4079742416) CALCIUM (test code = 9.2 mg/dL 8.6-10.6 3180390865) T PROTEIN (test code 7.6 g/dL 6.3-8.2 = 0898074220) ALBUMIN (test code = 4.9 g/dL 3.5-5.0 9537043515) ALK PHOS (test code = 96 U/L 34-122 Slight 8648781329) hemolysis ALTv (test code = 27 U/L 5-50 1742-6) AST(SGOT) (test code 46 U/L 13-40 H Slight = 7517345789) hemolysis eGFR (test code = mL/min/1.73m2 7474719038) GILBERTO (test code = GILBERTO) Association of [...] tests). Lab Interpretation Abnormal (test code = 51178-4) [facility]. METABOLIC PANEL (16139)2021-08-31 00:07:17 Test Item Value Reference Range Interpretation Comments NA (test code = 126 mmol/L 135-145 L 5787648961) K (test code = 4.3 mmol/L 3.5-5.0 Slight 6650602415) hemolysis CL (test code = 96 mmol/L 98-108 L 8461889966) CO2 TOTAL (test code 18 mmol/L 23-31 L = 5390255461) AGAP (test code = 2-16 2844840833) BUN (test code = 58 mg/dL 7-23 H Slight 1656102416) hemolysis GLUCOSE (test code = 108 mg/dL 70-110 2835844094) CREATININE (test code 2.11 mg/dL 0.60-1.25 H = 0920465336) TOTAL BILI (test code 0.7 mg/dL 0.1-1.1 = 5967799381) CALCIUM (test code = 9.2 mg/dL 8.6-10.6 3585281481) T PROTEIN (test code 7.6 g/dL 6.3-8.2 = 4873983028) ALBUMIN (test code = 4.9 g/dL 3.5-5.0 2629974523) ALK PHOS (test code = 96 U/L 34-122 Slight 6379209767) hemolysis ALTv (test code = 27 U/L 550 1742-6) AST(SGOT) (test code 46 U/L 13-40 H Slight = 9921176564) hemolysis eGFR (test code = mL/min/1.73m2 4761844277) GILBERTO (test code = GILBERTO) Association of [...] tests). Lab Interpretation Abnormal (test code = 09621-1) [facility] WITH [id number] 23:36:10 Test Item Value Reference Range Interpretation Comments WBC (test code = See_Comment [Automated 0052-2) message] The sy stem which generated this result transmitted reference range : 4.20 - 10.70 10*3/?L. The reference range was not used to interpret this result as normal/abnormal . RBC (test code = See_Comment [Automated 702-8) message] The sy stem which generated this [...] RDW-SD (test code = 41.7 fL 38.5-51.6 15952-2) RDW-CV (test code = 13.4 % 12.1-15.4 788-0) PLT (test code = See_Comment [Automated 777-3) message] The sy stem which generated this result transmitted reference range : 150 - 328 10*3/ ?L. The reference r meredith was not used to interpret this result as normal/abnormal . MPV (test code = 10.3 fL 9.8-13.0 74496-9) NRBC/100 WBC (test See_Comment [Automat ed code = 3965067088) message] The system which generated this result transmitted reference range : 0.0 - 10.0 /100 WBCs. The refer ence range was not u sed to interpret th is result as normal/abnormal . NRBC x10^3 (test code <0.01 See_Comment [Auto mated = 2386574350) message] The s ystem which generated this result transmitted reference range : 10*3/?L. The reference range was not used to interpret this result as normal/abnormal . GRAN MAT (NEUT) % 60.6 % (test code = 770-8) IMM GRAN % (test code 0.30 % = 5637180888) LYMPH % (test code = 29.1 % 736-9) MONO % (test code = 8.8 % 5905-5) EOS % (test code = 0.6 % 713-8) BASO % (test code = 0.6 % 706-2) GRAN MAT x10^3(ANC) 4.08 10*3/uL 1.99-6.95 (test code = 5449745085) IMM GRAN x10^3 (test <0.03 0.00-0.06 code = 9364683711) LYMPH x10^3 (test code 1.96 10*3/uL 1.09-3.23 = 731-0) MONO x10^3 (test code 0.59 10*3/uL 0.36-1.02 = 742-7) EOS x10^3 (test code = 0.04 10*3/uL 0.06-0.53 L 711-2) BASO x10^3 (test code 0.04 10*3/uL 0.01-0.09 = 704-7) Lab Interpretation Abnormal (test code = 05946-9) [facility] WITH [id number] 23:36:10 Test Item Value Reference Range Interpretation Comments WBC (test code = See_Comment [Automated 9790-2) message] The sy stem which generated this result transmitted reference range : 4.20 - 10.70 10*3/?L. The reference range was not used to interpret this result as normal/abnormal . RBC (test code = See_Comment [Automated 819-8) message] The sy stem which [...] RDW-SD (test code = 41.7 fL 38.5-51.6 34812-5) RDW-CV (test code = 13.4 % 12.1-15.4 788-0) PLT (test code = See_Comment [Automated 777-3) message] The sy stem which generated this result transmitted reference range : 150 - 328 10*3/ ?L. The reference r meredith was not used to interpret this result as normal/abnormal . MPV (test code = 10.3 fL 9.8-13.0 10191-1) NRBC/100 WBC (test See_Comment [Automat ed code = 5096457428) message] The system which generated this result transmitted reference range : 0.0 - 10.0 /100 WBCs. The refer ence range was not u sed to interpret th is result as normal/abnormal . NRBC x10^3 (test code <0.01 See_Comment [Auto mated = 9014587565) message] The s ystem which generated this result transmitted reference range : 10*3/?L. The reference range was not used to interpret this result as normal/abnormal . GRAN MAT (NEUT) % 60.6 % (test code = 770-8) IMM GRAN % (test code 0.30 % = 4108680508) LYMPH % (test code = 29.1 % 736-9) MONO % (test code = 8.8 % 5905-5) EOS % (test code = 0.6 % 713-8) BASO % (test code = 0.6 % 706-2) GRAN MAT x10^3(ANC) 4.08 10*3/uL 1.99-6.95 (test code = 7866864947) IMM GRAN x10^3 (test <0.03 0.00-0.06 code = 0153742383) LYMPH x10^3 (test code 1.96 10*3/uL 1.09-3.23 = 731-0) MONO x10^3 (test code 0.59 10*3/uL 0.36-1.02 = 742-7) EOS x10^3 (test code = 0.04 10*3/uL 0.06-0.53 L 711-2) BASO x10^3 (test code 0.04 10*3/uL 0.01-0.09 = 704-7) Lab Interpretation Abnormal (test code = 93071-9) [facility] RAPID STREP SCREEN FOR GROUP [id number] 00:24:00 Test Item Value Reference Range Interpretation Comments POCT GP A STREP (test code = Negative Negative - Negative 04060-7) Lab Interpretation (test code = Normal 57847-0) [facility]PRE[facility]IN2021-[facility]-13 11:38:43 Test Item Value Reference Range Interpretation Comments PALB (test code = 61681-0) 25.2 mg/dL 18.0-45.0 Lab Interpretation (test code = Normal 17323-6) [facility]OL[facility] (NA, K, CL, CO2, GLUCOSE, BUN, CREATININE, [place])2021-08-05 11:30:59 Test Item Value Reference Range Interpretation Comments NA (test code = 140 mmol/L 135-145 3872740889) K (test code = 4.2 mmol/L 3.5-5.0 5391781058) CL (test code = 110 mmol/L 98-108 H 7071594871) CO2 TOTAL (test code = 27 mmol/L 23-31 0976420643) AGAP (test code = 2-16 8734047491) BUN (test code = 9 mg/dL 7-23 8240327079) GLUCOSE (test code = 86 mg/dL 70-110 8743910758) CREATININE (test code = 1.51 mg/dL 0.60-1.25 H 9395763575) CALCIUM (test code = 8.5 mg/dL 8.6-10.6 L 1275120087) eGFR (test code = mL/min/1.73m2 9026738256) GILBERTO (test code = GILBERTO) Association of [...] tests). Lab Interpretation Abnormal (test code = 94974-9) [facility]:30:59 Test Item Value Reference Range Interpretation Comments MAGNESIUM (test code = 1876208399) 2.0 mg/dL 1.7-2.4 Lab Interpretation (test code = Normal 98273-8) [facility]2021[facility]-13 11:30:59 Test Item Value Reference Range Interpretation Comments PHOSPHORUS (test code = 9056691016) 5.1 mg/dL 2.5-5.0 H Lab Interpretation (test code = Abnormal 44599-1) [facility] 11:30:59 Test Item Value Reference Range Interpretation Comments ALBUMIN (test code = 1545393770) 3.1 g/dL 3.5-5.0 L Lab Interpretation (test code = Abnormal 47499-1) [facility] WITH HVLA1981-37-70 11:05:58 Test Item Value Reference Range Interpretation Comments WBC (test code = See_Comment L [Automated 7390-2) message] The sy stem which [...] RDW-SD (test code = 47.5 fL 38.5-51.6 55244-4) RDW-CV (test code = 14.0 % 12.1-15.4 788-0) PLT (test code = See_Comment [Automated 777-3) message] The sy stem which generated this result transmitted reference range : 150 - 328 10*3/ ?L. The reference r meredith was not used to interpret this result as normal/abnormal . MPV (test code = 9.5 fL 9.8-13.0 L 14765-9) NRBC/100 WBC (test See_Comment [Automat ed code = 5221513181) message] The system which generated this result transmitted reference range : 0.0 - 10.0 /100 WBCs. The refer ence range was not u sed to interpret th is result as normal/abnormal . NRBC x10^3 (test code <0.01 See_Comment [Auto mated = 2380867300) message] The s ystem which generated this result transmitted reference range : 10*3/?L. The reference range was not used to interpret this result as normal/abnormal . GRAN MAT (NEUT) % 52.5 % (test code = 770-8) IMM GRAN % (test code 0.30 % = 0782564733) LYMPH % (test code = 31.1 % 736-9) MONO % (test code = 11.7 % 5905-5) EOS % (test code = 3.9 % 713-8) BASO % (test code = 0.5 % 706-2) GRAN MAT x10^3(ANC) 2.03 10*3/uL 1.99-6.95 (test code = 2102617483) IMM GRAN x10^3 (test <0.03 0.00-0.06 code = 6957339384) LYMPH x10^3 (test code 1.20 10*3/uL 1.09-3.23 = 731-0) MONO x10^3 (test code 0.45 10*3/uL 0.36-1.02 = 742-7) EOS x10^3 (test code = 0.15 10*3/uL 0.06-0.53 711-2) BASO x10^3 (test code <0.03 0.01-0.09 = 704-7) Lab Interpretation Abnormal (test code = 59065-0) [facility] WITH [id number] 12:30:17 Test Item Value Reference Range Interpretation [...] RDW-SD (test code = 49.2 fL 38.5-51.6 37986-9) RDW-CV (test code = 14.3 % 12.1-15.4 788-0) PLT (test code = See_Comment [Automated 777-3) message] The sy stem which generated this result transmitted reference range : 150 - 328 10*3/ ?L. The reference r meredith was not used to interpret this result as normal/abnormal . MPV (test code = 9.2 fL 9.8-13.0 L 02414-4) NRBC/100 WBC (test See_Comment [Automat ed code = 1979323576) message] The system which generated this result transmitted reference range : 0.0 - 10.0 /100 WBCs. The refer ence range was not u sed to interpret th is result as normal/abnormal . NRBC x10^3 (test code <0.01 See_Comment [Auto mated = 0958965439) message] The s ystem which generated this result transmitted reference range : 10*3/?L. The reference range was not used to interpret this result as normal/abnormal . GRAN MAT (NEUT) % 47.2 % (test code = 770-8) IMM GRAN % (test code 0.30 % = 5582585371) LYMPH % (test code = 36.0 % 736-9) MONO % (test code = 12.6 % 5905-5) EOS % (test code = 3.4 % 713-8) BASO % (test code = 0.5 % 706-2) GRAN MAT x10^3(ANC) 1.80 10*3/uL 1.99-6.95 L (test code = 8057133161) IMM GRAN x10^3 (test <0.03 0.00-0.06 code = 6066511509) LYMPH x10^3 (test code 1.37 10*3/uL 1.09-3.23 = 731-0) MONO x10^3 (test code 0.48 10*3/uL 0.36-1.02 = 742-7) EOS x10^3 (test code = 0.13 10*3/uL 0.06-0.53 711-2) BASO x10^3 (test code <0.03 0.01-0.09 = 704-7) Lab Interpretation Abnormal (test code = 62099-1) [facility] (NA, K, CL, CO2, GLUCOSE, BUN, CREATININE, CA)2021-08-04 12:17:48 Test Item Value Reference Range Interpretation Comments NA (test code = 139 mmol/L 135-145 3346840938) K (test code = 4.3 mmol/L 3.5-5.0 5468802587) CL (test code = 110 mmol/L 98-108 H 4357823982) CO2 TOTAL (test code = 26 mmol/L 23-31 3704665044) AGAP (test code = 2-16 9281344673) BUN (test code = 8 mg/dL 7-23 0152728307) GLUCOSE (test code = 87 mg/dL 70-110 1036307237) CREATININE (test code = 1.50 mg/dL 0.60-1.25 H 3737110758) CALCIUM (test code = 8.4 mg/dL 8.6-10.6 L 1881823464) eGFR (test code = mL/min/1.73m2 8436918998) GILBERTO (test code = GILBERTO) Association of [...] tests). Lab Interpretation Abnormal (test code = 43677-4) [facility]20[facility] 12:17:48 Test Item Value Reference Range Interpretation Comments MAGNESIUM (test code = 0615791727) 1.9 mg/dL 1.7-2.4 Lab Interpretation (test code = Normal 21996-5) [facility]2021-[facility]-12 12:17:48 Test Item Value Reference Range Interpretation Comments PHOSPHORUS (test code = 5282892909) 4.6 mg/dL 2.5-5.0 Lab Interpretation (test code = Normal 77051-9) [facility] WITH [id number] 11:23:38 Test Item Value Reference Range Interpretation [...] RDW-SD (test code = 47.8 fL 38.5-51.6 65565-8) RDW-CV (test code = 14.1 % 12.1-15.4 788-0) PLT (test code = See_Comment [Automated 777-3) message] The sy stem which generated this result transmitted reference range : 150 - 328 10*3/ ?L. The reference r meredith was not used to interpret this result as normal/abnormal . MPV (test code = 9.3 fL 9.8-13.0 L 23588-1) NRBC/100 WBC (test See_Comment [Automat ed code = 9100966295) message] The system which generated this result transmitted reference range : 0.0 - 10.0 /100 WBCs. The refer ence range was not u sed to interpret th is result as normal/abnormal . NRBC x10^3 (test code <0.01 See_Comment [Auto mated = 3951333717) message] The s ystem which generated this result transmitted reference range : 10*3/?L. The reference range was not used to interpret this result as normal/abnormal . GRAN MAT (NEUT) % 49.3 % (test code = 770-8) IMM GRAN % (test code 0.30 % = 0408293684) LYMPH % (test code = 34.6 % 736-9) MONO % (test code = 12.0 % 5905-5) EOS % (test code = 3.3 % 713-8) BASO % (test code = 0.5 % 706-2) GRAN MAT x10^3(ANC) 1.97 10*3/uL 1.99-6.95 L (test code = 3531212259) IMM GRAN x10^3 (test <0.03 0.00-0.06 code = 1736731361) LYMPH x10^3 (test code 1.38 10*3/uL 1.09-3.23 = 731-0) MONO x10^3 (test code 0.48 10*3/uL 0.36-1.02 = 742-7) EOS x10^3 (test code = 0.13 10*3/uL 0.06-0.53 711-2) BASO x10^3 (test code <0.03 0.01-0.09 = 704-7) Lab Interpretation Abnormal (test code = 01253-1) [facility] METABOLIC PANEL (NA, K, CL, CO2, GLUCOSE, BUN, CREATININE, CA)2021-08-03 11:18:55 Test Item Value Reference Range Interpretation Comments NA (test code = 139 mmol/L 135-145 6458217355) K (test code = 4.1 mmol/L 3.5-5.0 6736987968) CL (test code = 110 mmol/L 98-108 H 9663797608) CO2 TOTAL (test code = 27 mmol/L 23-31 4201689780) AGAP (test code = 2-16 3520318005) BUN (test code = 8 mg/dL 7-23 5302016747) GLUCOSE (test code = 93 mg/dL 70-110 4458877198) CREATININE (test code = 1.39 mg/dL 0.60-1.25 H 5163391192) CALCIUM (test code = 8.1 mg/dL 8.6-10.6 L 1971150218) eGFR (test code = mL/min/1.73m2 3233983080) GILBERTO (test code = GILBERTO) Association of [...] tests). Lab Interpretation Abnormal (test code = 80843-4) [facility]2021-[facility]-11 11:18:55 Test Item Value Reference Range Interpretation Comments MAGNESIUM (test code = 0528852948) 2.0 mg/dL 1.7-2.4 Lab Interpretation (test code = Normal 45692-5) [facility]2021-[facility]-11 11:18:55 Test Item Value Reference Range Interpretation Comments PHOSPHORUS (test code = 4536186554) 3.8 mg/dL 2.5-5.0 Lab Interpretation (test code = Normal 59917-7) [facility] METABOLIC PANEL (NA, K, CL, CO2, GLUCOSE, BUN, CREATININE, CA)2021-08-02 14:06:51 Test Item Value Reference Range Interpretation Comments NA (test code = 137 mmol/L 135-145 1896324554) K (test code = 4.4 mmol/L 3.5-5.0 5253571398) CL (test code = 108 mmol/L 98-108 0523956437) CO2 TOTAL (test code = 24 mmol/L 23-31 5316852950) AGAP (test code = 2-16 0140963171) BUN (test code = 10 mg/dL 7-23 7409941492) GLUCOSE (test code = 83 mg/dL 70-110 1057439439) CREATININE (test code = 1.48 mg/dL 0.60-1.25 H 6078974258) CALCIUM (test code = 8.4 mg/dL 8.6-10.6 L 2899987886) eGFR (test code = mL/min/1.73m2 5619930187) GILBERTO (test code = GILBERTO) Association of [...] tests). Lab Interpretation Abnormal (test code = 08553-5) [facility]2021-[facility]-10 14:06:51 Test Item Value Reference Range Interpretation Comments MAGNESIUM (test code = 8416609856) 2.1 mg/dL 1.7-2.4 Lab Interpretation (test code = Normal 09395-4) [facility]2021-[facility]-10 14:06:51 Test Item Value Reference Range Interpretation Comments PHOSPHORUS (test code = 7376641558) 4.6 mg/dL 2.5-5.0 Lab Interpretation (test code = Normal 40118-2) [facility] WITH [id number] 12:30:05 Test Item Value Reference Range Interpretation [...] RDW-SD (test code = 48.6 fL 38.5-51.6 00853-4) RDW-CV (test code = 14.3 % 12.1-15.4 788-0) PLT (test code = See_Comment [Automated 777-3) message] The sy stem which generated this result transmitted reference range : 150 - 328 10*3/ ?L. The reference r meredith was not used to interpret this result as normal/abnormal . MPV (test code = 10.0 fL 9.8-13.0 61012-2) NRBC/100 WBC (test See_Comment [Automat ed code = 7364039312) message] The system which generated this result transmitted reference range : 0.0 - 10.0 /100 WBCs. The refer ence range was not u sed to interpret th is result as normal/abnormal . NRBC x10^3 (test code <0.01 See_Comment [Auto mated = 0415471777) message] The s ystem which generated this result transmitted reference range : 10*3/?L. The reference range was not used to interpret this result as normal/abnormal . GRAN MAT (NEUT) % 51.9 % (test code = 770-8) IMM GRAN % (test code 0.60 % = 4562719113) LYMPH % (test code = 32.7 % 736-9) MONO % (test code = 11.3 % 5905-5) EOS % (test code = 3.2 % 713-8) BASO % (test code = 0.3 % 706-2) GRAN MAT x10^3(ANC) 1.80 10*3/uL 1.99-6.95 L (test code = 4642782141) IMM GRAN x10^3 (test <0.03 0.00-0.06 code = 8017812603) LYMPH x10^3 (test code 1.13 10*3/uL 1.09-3.23 = 731-0) MONO x10^3 (test code 0.39 10*3/uL 0.36-1.02 = 742-7) EOS x10^3 (test code = 0.11 10*3/uL 0.06-0.53 711-2) BASO x10^3 (test code <0.03 0.01-0.09 = 704-7) Lab Interpretation Abnormal (test code = 43474-5) [facility] WITH [id number] 10:44:18 Test Item Value Reference Range Interpretation [...] RDW-SD (test code = 48.0 fL 38.5-51.6 63021-5) RDW-CV (test code = 14.1 % 12.1-15.4 788-0) PLT (test code = See_Comment [Automated 777-3) message] The sy stem which generated this result transmitted reference range : 150 - 328 10*3/ ?L. The reference r meredith was not used to interpret this result as normal/abnormal . MPV (test code = 9.5 fL 9.8-13.0 L 74885-5) NRBC/100 WBC (test See_Comment [Automat ed code = 4628581538) message] The system which generated this result transmitted reference range : 0.0 - 10.0 /100 WBCs. The refer ence range was not u sed to interpret th is result as normal/abnormal . NRBC x10^3 (test code <0.01 See_Comment [Auto mated = 6891479440) message] The s ystem which generated this result transmitted reference range : 10*3/?L. The reference range was not used to interpret this result as normal/abnormal . GRAN MAT (NEUT) % 50.8 % (test code = 770-8) IMM GRAN % (test code 0.30 % = 3108216601) LYMPH % (test code = 34.6 % 736-9) MONO % (test code = 10.3 % 5905-5) EOS % (test code = 3.7 % 713-8) BASO % (test code = 0.3 % 706-2) GRAN MAT x10^3(ANC) 1.78 10*3/uL 1.99-6.95 L (test code = 5404695676) IMM GRAN x10^3 (test <0.03 0.00-0.06 code = 0090017459) LYMPH x10^3 (test code 1.21 10*3/uL 1.09-3.23 = 731-0) MONO x10^3 (test code 0.36 10*3/uL 0.36-1.02 = 742-7) EOS x10^3 (test code = 0.13 10*3/uL 0.06-0.53 711-2) BASO x10^3 (test code <0.03 0.01-0.09 = 704-7) Lab Interpretation Abnormal (test code = 66926-7) [facility] METABOLIC PANEL (NA, K, CL, CO2, GLUCOSE, BUN, CREATININE, CA)2021-08-01 10:25:17 Test Item Value Reference Range Interpretation Comments NA (test code = 138 mmol/L 135-145 8947862309) K (test code = 4.1 mmol/L 3.5-5.0 6490501659) CL (test code = 105 mmol/L 98-108 4470121265) CO2 TOTAL (test code = 28 mmol/L 23-31 3234780804) AGAP (test code = 2-16 1421760418) BUN (test code = 13 mg/dL 7-23 6198950568) GLUCOSE (test code = 86 mg/dL 70-110 2299680707) CREATININE (test code = 1.46 mg/dL 0.60-1.25 H 1089399134) CALCIUM (test code = 8.7 mg/dL 8.6-10.6 8219099709) eGFR (test code = mL/min/1.73m2 1910736278) GILBERTO (test code = GILBERTO) Association of [...] tests). Lab Interpretation Abnormal (test code = 06329-2) [facility] 10:25:17 Test Item Value Reference Range Interpretation Comments MAGNESIUM (test code = 7273307017) 1.6 mg/dL 1.7-2.4 L Lab Interpretation (test code = Abnormal 73125-5) [facility]2021-[facility]-09 10:25:17 Test Item Value Reference Range Interpretation Comments PHOSPHORUS (test code = 7772072616) 4.1 mg/dL 2.5-5.0 Lab Interpretation (test code = Normal 46071-5) [facility]PRE[facility]2021-12-08 16:18:34 Test Item Value Reference Range Interpretation Comments PALB (test code = 34221-0) 24.3 mg/dL 18.0-45.0 Lab Interpretation (test code = Normal 42711-6) [facility] WITH [id number] 11:20:19 Test Item Value Reference Range Interpretation [...] RDW-SD (test code = 49.6 fL 38.5-51.6 32523-4) RDW-CV (test code = 14.6 % 12.1-15.4 788-0) PLT (test code = See_Comment [Automated 777-3) message] The sy stem which generated this result transmitted reference range : 150 - 328 10*3/ ?L. The reference r meredith was not used to interpret this result as normal/abnormal . MPV (test code = 9.6 fL 9.8-13.0 L 76194-6) NRBC/100 WBC (test See_Comment [Automat ed code = 4423169240) message] The system which generated this result transmitted reference range : 0.0 - 10.0 /100 WBCs. The refer ence range was not u sed to interpret th is result as normal/abnormal . NRBC x10^3 (test code <0.01 See_Comment [Auto mated = 1368495613) message] The s ystem which generated this result transmitted reference range : 10*3/?L. The reference range was not used to interpret this result as normal/abnormal . GRAN MAT (NEUT) % 49.1 % (test code = 770-8) IMM GRAN % (test code 0.30 % = 6085299046) LYMPH % (test code = 36.0 % 736-9) MONO % (test code = 10.6 % 5905-5) EOS % (test code = 3.4 % 713-8) BASO % (test code = 0.6 % 706-2) GRAN MAT x10^3(ANC) 1.76 10*3/uL 1.99-6.95 L (test code = 9003717088) IMM GRAN x10^3 (test <0.03 0.00-0.06 code = 6248641622) LYMPH x10^3 (test code 1.29 10*3/uL 1.09-3.23 = 731-0) MONO x10^3 (test code 0.38 10*3/uL 0.36-1.02 = 742-7) EOS x10^3 (test code = 0.12 10*3/uL 0.06-0.53 711-2) BASO x10^3 (test code <0.03 0.01-0.09 = 704-7) Lab Interpretation Abnormal (test code = 89915-1) [facility] METABOLIC PANEL (NA, K, CL, CO2, GLUCOSE, BUN, CREATININE, CA)2021-07-31 11:11:17 Test Item Value Reference Range Interpretation Comments NA (test code = 135 mmol/L 135-145 8074163398) K (test code = 3.8 mmol/L 3.5-5.0 1378976044) CL (test code = 108 mmol/L 98-108 3078111845) CO2 TOTAL (test code = 24 mmol/L 23-31 9813848900) AGAP (test code = 2-16 0044499987) BUN (test code = 13 mg/dL 7-23 1259918318) GLUCOSE (test code = 88 mg/dL 70-110 6358686135) CREATININE (test code = 1.32 mg/dL 0.60-1.25 H 4245277037) CALCIUM (test code = 8.4 mg/dL 8.6-10.6 L 1829862595) eGFR (test code = mL/min/1.73m2 7339263123) GILBERTO (test code = GILBERTO) Association of [...] tests). Lab Interpretation Abnormal (test code = 25299-3) [facility] 11:11:17 Test Item Value Reference Range Interpretation Comments MAGNESIUM (test code = 7319910450) 1.8 mg/dL 1.7-2.4 Lab Interpretation (test code = Normal 89145-9) [facility]2021-12-08 11:11:17 Test Item Value Reference Range Interpretation Comments PHOSPHORUS (test code = 5190580903) 4.0 mg/dL 2.5-5.0 Lab Interpretation (test code = Normal 77571-8) [facility]COMP[facility] METABOLIC PANEL (93089)2021-07-30 03:46:32 Test Item Value Reference Range Interpretation Comments NA (test code = 132 mmol/L 135-145 L 4012929582) K (test code = 4.4 mmol/L 3.5-5.0 6037767842) CL (test code = 102 mmol/L 98-108 2948007050) CO2 TOTAL (test code = 24 mmol/L 23-31 5221069495) AGAP (test code = 2-16 6992400342) BUN (test code = 21 mg/dL 7-23 7144316301) GLUCOSE (test code = 95 mg/dL 70-110 0559588891) CREATININE (test code = 1.76 mg/dL 0.60-1.25 H 1164108688) TOTAL BILI (test code = 0.7 mg/dL 0.1-1.1 6496674741) CALCIUM (test code = 8.8 mg/dL 8.6-10.6 1517696123) T PROTEIN (test code = 6.0 g/dL 6.3-8.2 L 1277882680) ALBUMIN (test code = 3.8 g/dL 3.5-5.0 2832691830) ALK PHOS (test code = 67 U/L 34-122 0605002132) ALTv (test code = 47 U/L 5-50 1742-6) AST(SGOT) (test code = 39 U/L 13-40 5620759879) eGFR (test code = mL/min/1.73m2 4810279729) GILBERTO (test code = GILBERTO) Association of [...] tests). Lab Interpretation Abnormal (test code = 49963-6) [facility]2021-[facility] 03:19:26 Test Item Value Reference Range Interpretation Comments LIPASE (test code = 3728064747) 58 U/L 0-220 Lab Interpretation (test code = Normal 90139-3) [facility] WITH [id number] 03:07:20 Test Item Value Reference Range Interpretation [...] RDW-SD (test code = 47.4 fL 38.5-51.6 09489-4) RDW-CV (test code = 14.2 % 12.1-15.4 788-0) PLT (test code = See_Comment [Automated 777-3) message] The sy stem which generated this result transmitted reference range : 150 - 328 10*3/ ?L. The reference r meredith was not used to interpret this result as normal/abnormal . MPV (test code = 9.9 fL 9.8-13.0 88814-2) NRBC/100 WBC (test See_Comment [Automat ed code = 0659190127) message] The system which generated this result transmitted reference range : 0.0 - 10.0 /100 WBCs. The refer ence range was not u sed to interpret th is result as normal/abnormal . NRBC x10^3 (test code <0.01 See_Comment [Auto mated = 4019162932) message] The s ystem which generated this result transmitted reference range : 10*3/?L. The reference range was not used to interpret this result as normal/abnormal . GRAN MAT (NEUT) % 61.1 % (test code = 770-8) IMM GRAN % (test code 0.20 % = 8661487187) LYMPH % (test code = 24.4 % 736-9) MONO % (test code = 11.8 % 5905-5) EOS % (test code = 2.2 % 713-8) BASO % (test code = 0.3 % 706-2) GRAN MAT x10^3(ANC) 3.98 10*3/uL 1.99-6.95 (test code = 4456585454) IMM GRAN x10^3 (test <0.03 0.00-0.06 code = 6148495574) LYMPH x10^3 (test code 1.59 10*3/uL 1.09-3.23 = 731-0) MONO x10^3 (test code 0.77 10*3/uL 0.36-1.02 = 742-7) EOS x10^3 (test code = 0.14 10*3/uL 0.06-0.53 711-2) BASO x10^3 (test code <0.03 0.01-0.09 = 704-7) Lab Interpretation Abnormal (test code = 99764-1) [facility] CampusLactic Acid Whole [id number] 03:00:47 Test Item Value Reference Range Interpretation Comments LACTIC ACID (test code = 1.45 mmol/L 0.50-2.20 QUE S 5185137400) Lab Interpretation (test code = Normal 08624-9) [facility] CampusCOMPREHENSIVE METABOLIC [id number] 11:51:00 Test Item Value Reference Range Interpretation [...] Units/L 50.0-136.0 N code = ALKP) PROTHROMBIN [id number] 11:41:00 Test Item Value Reference Range Interpretation Comments PROTHROMBIN TIME 10.9 SECONDS 9.9-12.8 N PATIENT (test code = PTP) INTERNATIONAL NORMAL 0.9 0.89-1.14 N THE INR IS TO BE USED RATIO (test code = ONLY FOR MONITORING INR) ORAL ANTICOAGULANTTH ERAPY. THE FOLLOWING A RE SUGGESTED RANGE S FROM THEAMERICAN COL LEGE OF CHEST PHYSICIANS:ROOPA CATION INR [...] D ANTIBODIES 2.5 - 3.5 CBC W/AUTO [id number] 11:36:00 Test Item Value Reference Range Interpretation [...] NA (test code = 137 mmol/L 135-145 9041095276) K (test code = 4.2 mmol/L 3.5-5.0 5883216010) CL (test code = 109 mmol/L 98-108 H 2487841473) CO2 TOTAL (test code = 25 mmol/L 23-31 9179257346) AGAP (test code = 2-16 2633553290) BUN (test code = 11 mg/dL 7-23 9669209288) GLUCOSE (test code = 83 mg/dL 70-110 4331887668) CREATININE (test code = 1.40 mg/dL 0.60-1.25 H 2440406836) CALCIUM (test code = 8.6 mg/dL 8.6-10.6 4280480024) eGFR (test code = mL/min/1.73m2 9663549157) GILBERTO (test code = GILBERTO) Association of [...] tests). Lab Interpretation Abnormal (test code = 62097-0) [facility]2021[facility] 13:15:26 Test Item Value Reference Range Interpretation Comments MAGNESIUM (test code = 7472403955) 1.6 mg/dL 1.7-2.4 L Lab Interpretation (test code = Abnormal 39842-6) [facility]2021-[facility]-03 13:15:26 Test Item Value Reference Range Interpretation Comments PHOSPHORUS (test code = 8571854473) 3.5 mg/dL 2.5-5.0 Lab Interpretation (test code = Normal 84736-3) [facility] WITH [id number] 12:50:41 Test Item Value Reference Range Interpretation [...] RDW-SD (test code = 46.7 fL 38.5-51.6 18961-2) RDW-CV (test code = 14.3 % 12.1-15.4 788-0) PLT (test code = See_Comment [Automated 777-3) message] The sy stem which generated this result transmitted reference range : 150 - 328 10*3/ ?L. The reference r mreedith was not used to interpret this result as normal/abnormal . MPV (test code = 9.6 fL 9.8-13.0 L 70742-2) NRBC/100 WBC (test See_Comment [Automat ed code = 3808686114) message] The system which generated this result transmitted reference range : 0.0 - 10.0 /100 WBCs. The refer ence range was not u sed to interpret th is result as normal/abnormal . NRBC x10^3 (test code <0.01 See_Comment [Auto mated = 1468305750) message] The s ystem which generated this result transmitted reference range : 10*3/?L. The reference range was not used to interpret this result as normal/abnormal . GRAN MAT (NEUT) % 52.7 % (test code = 770-8) IMM GRAN % (test code 0.40 % = 1758946963) LYMPH % (test code = 33.7 % 736-9) MONO % (test code = 10.4 % 5905-5) EOS % (test code = 2.4 % 713-8) BASO % (test code = 0.4 % 706-2) GRAN MAT x10^3(ANC) 2.65 10*3/uL 1.99-6.95 (test code = 7775537425) IMM GRAN x10^3 (test <0.03 0.00-0.06 code = 6721675686) LYMPH x10^3 (test code 1.69 10*3/uL 1.09-3.23 = 731-0) MONO x10^3 (test code 0.52 10*3/uL 0.36-1.02 = 742-7) EOS x10^3 (test code = 0.12 10*3/uL 0.06-0.53 711-2) BASO x10^3 (test code <0.03 0.01-0.09 = 704-7) Lab Interpretation Abnormal (test code = 96084-3) [facility]:59 Test Item Value Reference Range Interpretation Comments MAGNESIUM (test code = 1030616339) 1.6 mg/dL 1.7-2.4 L Lab Interpretation (test code = Abnormal 20197-9) [facility]21[facility] 12:35:59 Test Item Value Reference Range Interpretation Comments PHOSPHORUS (test code = 6643186781) 4.0 mg/dL 2.5-5.0 Lab Interpretation (test code = Normal 69988-6) [facility] (NA, K, CL, CO2, GLUCOSE, BUN, CREATININE, CA)2021-07-25 12:09:12 Test Item Value Reference Range Interpretation Comments NA (test code = 139 mmol/L 135-145 9103223907) K (test code = 4.1 mmol/L 3.5-5.0 5552092995) CL (test code = 111 mmol/L 98-108 H 0468737766) CO2 TOTAL (test code = 25 mmol/L 23-31 6633154974) AGAP (test code = 2-16 6380265620) BUN (test code = 13 mg/dL 7-23 1574297922) GLUCOSE (test code = 86 mg/dL 70-110 4932871815) CREATININE (test code = 1.43 mg/dL 0.60-1.25 H 6846808461) CALCIUM (test code = 8.4 mg/dL 8.6-10.6 L 1284359206) eGFR (test code = mL/min/1.73m2 9054937748) GILBERTO (test code = GILBERTO) Association of [...] tests). Lab Interpretation Abnormal (test code = 74365-0) [facility] WITH [id number] 11:44:33 Test Item Value Reference Range Interpretation [...] RDW-SD (test code = 48.9 fL 38.5-51.6 54081-2) RDW-CV (test code = 14.3 % 12.1-15.4 788-0) PLT (test code = See_Comment [Automated 777-3) message] The sy stem which generated this result transmitted reference range : 150 - 328 10*3/ ?L. The reference r meredith was not used to interpret this result as normal/abnormal . MPV (test code = 9.6 fL 9.8-13.0 L 91703-6) NRBC/100 WBC (test See_Comment [Automat ed code = 0423745885) message] The system which generated this result transmitted reference range : 0.0 - 10.0 /100 WBCs. The refer ence range was not u sed to interpret th is result as normal/abnormal . NRBC x10^3 (test code <0.01 See_Comment [Auto mated = 0806242813) message] The s ystem which generated this result transmitted reference range : 10*3/?L. The reference range was not used to interpret this result as normal/abnormal . GRAN MAT (NEUT) % 50.0 % (test code = 770-8) IMM GRAN % (test code 0.20 % = 5536364208) LYMPH % (test code = 36.7 % 736-9) MONO % (test code = 10.0 % 5905-5) EOS % (test code = 2.6 % 713-8) BASO % (test code = 0.5 % 706-2) GRAN MAT x10^3(ANC) 2.11 10*3/uL 1.99-6.95 (test code = 9912796513) IMM GRAN x10^3 (test <0.03 0.00-0.06 code = 6376218141) LYMPH x10^3 (test code 1.55 10*3/uL 1.09-3.23 = 731-0) MONO x10^3 (test code 0.42 10*3/uL 0.36-1.02 = 742-7) EOS x10^3 (test code = 0.11 10*3/uL 0.06-0.53 711-2) BASO x10^3 (test code <0.03 0.01-0.09 = 704-7) Lab Interpretation Abnormal (test code = 34270-7) [facility] WITH [id number] 04:23:56 Test Item Value Reference Range Interpretation Comments WBC (test code = See_Comment [Automated 6690-2) message] The sy stem which generated this result transmitted reference range : 4.20 - 10.70 10*3/?L. The reference range was not used to interpret this result as normal/abnormal . RBC (test code = See_Comment L [Automated 209-8) message] The sy [...] RDW-SD (test code = 49.0 fL 38.5-51.6 00787-2) RDW-CV (test code = 14.4 % 12.1-15.4 788-0) PLT (test code = See_Comment [Automated 777-3) message] The sy stem which generated this result transmitted reference range : 150 - 328 10*3/ ?L. The reference r meredith was not used to interpret this result as normal/abnormal . MPV (test code = 9.5 fL 9.8-13.0 L 05656-8) NRBC/100 WBC (test See_Comment [Automat ed code = 5986987749) message] The system which generated this result transmitted reference range : 0.0 - 10.0 /100 WBCs. The refer ence range was not u sed to interpret th is result as normal/abnormal . NRBC x10^3 (test code <0.01 See_Comment [Auto mated = 6632017192) message] The s ystem which generated this result transmitted reference range : 10*3/?L. The reference range was not used to interpret this result as normal/abnormal . GRAN MAT (NEUT) % 49.9 % (test code = 770-8) IMM GRAN % (test code 0.20 % = 7819712555) LYMPH % (test code = 35.2 % 736-9) MONO % (test code = 11.7 % 5905-5) EOS % (test code = 2.4 % 713-8) BASO % (test code = 0.6 % 706-2) GRAN MAT x10^3(ANC) 2.31 10*3/uL 1.99-6.95 (test code = 4666531602) IMM GRAN x10^3 (test <0.03 0.00-0.06 code = 6762814839) LYMPH x10^3 (test code 1.63 10*3/uL 1.09-3.23 = 731-0) MONO x10^3 (test code 0.54 10*3/uL 0.36-1.02 = 742-7) EOS x10^3 (test code = 0.11 10*3/uL 0.06-0.53 711-2) BASO x10^3 (test code 0.03 10*3/uL 0.01-0.09 = 704-7) Lab Interpretation Abnormal (test code = 80127-6) [facility] METABOLIC PANEL (NA, K, CL, CO2, GLUCOSE, BUN, CREATININE, CA)2021-07-24 12:55:24 Test Item Value Reference Range Interpretation Comments NA (test code = 135 mmol/L 135-145 6938695867) K (test code = 4.0 mmol/L 3.5-5.0 6229059706) CL (test code = 109 mmol/L 98-108 H 0891258896) CO2 TOTAL (test code = 22 mmol/L 23-31 L 0739504532) AGAP (test code = 2-16 4491473455) BUN (test code = 12 mg/dL 7-23 2846936882) GLUCOSE (test code = 102 mg/dL 70-110 5547019867) CREATININE (test code = 1.27 mg/dL 0.60-1.25 H 6991756217) CALCIUM (test code = 8.6 mg/dL 8.6-10.6 6867369522) eGFR (test code = mL/min/1.73m2 3330006595) GILBERTO (test code = GILBERTO) Association of [...] tests). Lab Interpretation Abnormal (test code = 24226-4) [facility] 12:55:24 Test Item Value Reference Range Interpretation Comments MAGNESIUM (test code = 3123068483) 1.7 mg/dL 1.7-2.4 Lab Interpretation (test code = Normal 04449-0) [facility]2021-[facility] 12:55:24 Test Item Value Reference Range Interpretation Comments PHOSPHORUS (test code = 7580313634) 3.1 mg/dL 2.5-5.0 Lab Interpretation (test code = Normal 19929-3) [facility] (NA, K, CL, CO2, Glucose, BUN, Creatinine, CA)2021-07-23 13:27:55 Test Item Value Reference Range Interpretation Comments NA (test code = 134 mmol/L 135-145 L 2662932484) K (test code = 3.8 mmol/L 3.5-5.0 4696864699) CL (test code = 107 mmol/L 98-108 0215874523) CO2 TOTAL (test code = 21 mmol/L 23-31 L 5570514203) AGAP (test code = 2-16 9951660400) BUN (test code = 18 mg/dL 7-23 9694839237) GLUCOSE (test code = 120 mg/dL 70-110 H 8680569019) CREATININE (test code = 1.46 mg/dL 0.60-1.25 H 5289371141) CALCIUM (test code = 8.7 mg/dL 8.6-10.6 8028788930) eGFR (test code = mL/min/1.73m2 4730601326) GILBERTO (test code = GILBERTO) Association of [...] tests). Lab Interpretation Abnormal (test code = 41364-6) [facility]2021-11-30 13:27:55 Test Item Value Reference Range Interpretation Comments MAGNESIUM (test code = 0966735184) 1.9 mg/dL 1.7-2.4 Lab Interpretation (test code = Normal 38298-0) [facility]2021-[facility]-30 13:27:55 Test Item Value Reference Range Interpretation Comments PHOSPHORUS (test code = 1404865826) 3.5 mg/dL 2.5-5.0 Lab Interpretation (test code = Normal 64985-9) [facility]CB with Wffyaswtulkq0487-03-85 13:06:55 Test Item Value Reference Range Interpretation [...] RDW-SD (test code = 47.8 fL 38.5-51.6 46509-0) RDW-CV (test code = 14.4 % 12.1-15.4 788-0) PLT (test code = See_Comment [Automated 777-3) message] The sy stem which generated this result transmitted reference range : 150 - 328 10*3/ ?L. The reference r meredith was not used to interpret this result as normal/abnormal . MPV (test code = 9.4 fL 9.8-13.0 L 22366-2) NRBC/100 WBC (test See_Comment [Automat ed code = 9458971333) message] The system which generated this result transmitted reference range : 0.0 - 10.0 /100 WBCs. The refer ence range was not u sed to interpret th is result as normal/abnormal . NRBC x10^3 (test code <0.01 See_Comment [Auto mated = 2930008066) message] The s ystem which generated this result transmitted reference range : 10*3/?L. The reference range was not used to interpret this result as normal/abnormal . GRAN MAT (NEUT) % 54.7 % (test code = 770-8) IMM GRAN % (test code 0.40 % = 9259278485) LYMPH % (test code = 33.3 % 736-9) MONO % (test code = 9.4 % 5905-5) EOS % (test code = 1.8 % 713-8) BASO % (test code = 0.4 % 706-2) GRAN MAT x10^3(ANC) 2.78 10*3/uL 1.99-6.95 (test code = 4299883771) IMM GRAN x10^3 (test <0.03 0.00-0.06 code = 0981925561) LYMPH x10^3 (test code 1.69 10*3/uL 1.09-3.23 = 731-0) MONO x10^3 (test code 0.48 10*3/uL 0.36-1.02 = 742-7) EOS x10^3 (test code = 0.09 10*3/uL 0.06-0.53 711-2) BASO x10^3 (test code <0.03 0.01-0.09 = 704-7) Lab Interpretation Abnormal (test code = 69282-9) [facility] W/AUTO [id number] 09:48:00 Test Item Value Reference Range Interpretation [...] = MX#) 0.8 k/mm3 0.1-0.8 N GLUCOSE [id number] 06:12:00 Test Item Value Reference Range Interpretation Comments GLUCOSE BEDSIDE (test 129 MG/DL 70-110 H Perfor med by certified code = 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 Unit #: [id number] Loc: [place] [address] Phys: Sabi Urias MD Acct: [id number] Dis Date: Status: PRE ER PHONE #: Exam Date: 06/27/2021 0779 FAX #: Reason: Abdominal Pain EXAMS: CPT CODE: [id number] XR CHEST 1 V 97887 PROCEDURE INFORMATION: Exam: XR Chest Exam date [...] MD Technologist: RT Alanna(R)(CT) Trnscrd Date/Time/By: 06/27/2021 (0719) : By: [email or web address] Orig Print D/T: S: 06/27/2021 (3045) PAGE 1 Signed Report- CT ABD PELVIS [id number] 00:00:00 [facility] SHANA LAKEName: DORA MCNEILL : 1970 Sex: MName: DORA MCNEILL FSED : 1970 Age/S: 51 / M [address] [facility] Unit #: [id number] Loc: [place] [address] Phys: Sabi Urias MD Acct: [id number] Dis Date: Status: REG ER PHONE #: Exam Date: 06/27/2021 0609 FAX #: Reason: pain in region of colostomy EXAMS: CPT CODE: [id number] CT ABD PELVIS W/CONT 71393 PROCEDURE INFORMATION: Exam: CT Abdomen And Pelvis [...] / M [address] [facility] Unit #: [id number] Loc: [place] [address] Phys: Sabi Urias Acct: [id number] Dis Date: Status: REG ER PHONE #: Exam Date: 06/27/2021 1625 FAX #: Reason: pain in region of colostomy EXAMS: CPT CODE: [id number] CT ABD PELVIS W/CONT 01707 <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 There is no evidence of associated intestinal obstruction. 2. No additional acute CT abnormalities of the abdomen or pelvis are identified. SL:131 at 1650 Reported and signed by: Marco Raman M.D. CC: Sabi Urias MD Technologist:RT Alanna(R)(CT) CTDI: DLP: Trnscb Date/Time: 06/27/2021 (165) [place] Orig Print D/T: S: 06/27/2021 (1649) PAGE 2 Signed ReportBASIC METABOLIC PANEL (NA, K, CL, CO2, GLUCOSE, BUN, CREATININE, CA)2021-06-03 11:32:40 Test Item Value Reference Range Interpretation Comments NA (test code = 133 mmol/L 135-145 L 3188768430) K (test code = 3.7 mmol/L 3.5-5.0 6428400246) CL (test code = 108 mmol/L 98-108 2277987432) CO2 TOTAL (test code = 20 mmol/L 23-31 L 2104139068) AGAP (test code = 2-16 5939899113) BUN (test code = 11 mg/dL 7-23 7818459566) GLUCOSE (test code = 82 mg/dL 70-110 1700243088) CREATININE (test code = 0.96 mg/dL 0.60-1.25 2324696598) CALCIUM (test code = 8.6 mg/dL 8.6-10.6 1013093293) eGFR (test code = mL/min/1.73m2 8466736005) GILBERTO (test code = GILBERTO) Association of [...] tests). Lab Interpretation Abnormal (test code = 55183-9) [facility] METABOLIC PANEL (NA, K, CL, CO2, GLUCOSE, BUN, CREATININE, CA)2021-06-02 11:45:25 Test Item Value Reference Range Interpretation Comments NA (test code = 133 mmol/L 135-145 L 8461325321) K (test code = 3.7 mmol/L 3.5-5.0 6695457772) CL (test code = 111 mmol/L 98-108 H 6657035574) CO2 TOTAL (test code = 17 mmol/L 23-31 L 2126023293) AGAP (test code = 2-16 1727850906) BUN (test code = 15 mg/dL 7-23 2033048303) GLUCOSE (test code = 88 mg/dL 70-110 7430546553) CREATININE (test code = 0.96 mg/dL 0.60-1.25 7912081951) CALCIUM (test code = 8.1 mg/dL 8.6-10.6 L 9192449507) eGFR (test code = mL/min/1.73m2 3763763402) GILBERTO (test code = GILBERTO) Association of [...] tests). Lab Interpretation Abnormal (test code = 74952-3) [facility] METABOLIC PANEL (NA, K, CL, CO2, GLUCOSE, BUN, CREATININE, CA)2021-06-01 17:06:47 Test Item Value Reference Range Interpretation Comments NA (test code = 131 mmol/L 135-145 L 2055947168) K (test code = 3.9 mmol/L 3.5-5.0 Slight 6078617151) hemolysis CL (test code = 108 mmol/L 98-108 3484130452) CO2 TOTAL (test code 15 mmol/L 23-31 L = 7606348871) AGAP (test code = 2-16 5721351285) BUN (test code = 26 mg/dL 7-23 H Slight 4113035787) hemolysis GLUCOSE (test code = 85 mg/dL 70-110 5340989820) CREATININE (test code 1.26 mg/dL 0.60-1.25 H = 0551989519) CALCIUM (test code = 8.1 mg/dL 8.6-10.6 L 0045093134) eGFR (test code = mL/min/1.73m2 4693444982) GILBERTO (test code = GILBERTO) Association of [...] tests). Lab Interpretation Abnormal (test code = 71493-7) [facility] Whole [id number] 05:45:35 Test Item Value Reference Range Interpretation Comments LACTIC ACID (test code = 0.67 mmol/L 0.50-2.20 1695716665) Lab Interpretation (test code = Normal 27552-1) [facility] CampusTR[facility]IN [id number] 23:44:55 Test Item Value Reference Interpretation Comments Range TROPONIN I (test 0.004 ng/mL See_Comment [Automated code = 3309509218) message] The system which generated this result [...] biotin. Lab Interpretation Normal (test code = 95506-3) [facility]2021-10-08 23:33:28 Test Item Value Reference Range Interpretation Comments LIPASE (test code = 8035372598) 386 U/L 0-220 H Lab Interpretation (test code = Abnormal 25423-5) [facility]COMP[facility] METABOLIC PANEL (83000)2021-05-31 23:33:28 Test Item Value Reference Range Interpretation Comments NA (test code = 128 mmol/L 135-145 L 8836352902) K (test code = 4.2 mmol/L 3.5-5.0 9818546431) CL (test code = 102 mmol/L 98-108 6128035659) CO2 TOTAL (test code = 13 mmol/L 23-31 L 1184012643) AGAP (test code = 2-16 9033188927) BUN (test code = 47 mg/dL 7-23 H 0368296050) GLUCOSE (test code = 106 mg/dL 70-110 4451991957) CREATININE (test code = 2.38 mg/dL 0.60-1.25 H 3644727927) TOTAL BILI (test code = 0.6 mg/dL 0.1-1.9 6746382292) CALCIUM (test code = 9.5 mg/dL 8.6-10.6 9998974530) T PROTEIN (test code = 7.3 g/dL 6.3-8.2 1246763312) ALBUMIN (test code = 4.6 g/dL 3.5-5.0 1304691107) ALK PHOS (test code = 110 U/L 34-122 3122997587) ALTv (test code = 29 U/L 5-50 1742-6) AST(SGOT) (test code = 33 U/L 13-40 8222729966) eGFR (test code = mL/min/1.73m2 1449541456) GILBERTO (test code = GILBERTO) Association of [...] tests). Lab Interpretation Abnormal (test code = 14375-6) [facility] WITH [id number] 22:57:06 Test Item Value Reference Range Interpretation Comments WBC (test code = See_Comment [Automated 0078-2) message] The sy stem which generated this result transmitted reference range : 4.20 - 10.70 10*3/?L. The reference range was not used to interpret this result as normal/abnormal . RBC (test code = See_Comment [Automated 868-8) message] The sy stem which generated this [...] RDW-SD (test code = 43.2 fL 38.5-51.6 67133-5) RDW-CV (test code = 13.7 % 12.1-15.4 788-0) PLT (test code = See_Comment [Automated 197-3) message] The sy stem which generated this result transmitted reference range : 150 - 328 10*3/ ?L. The reference r meredith was not used to interpret this result as normal/abnormal . MPV (test code = 10.1 fL 9.8-13.0 41059-8) NRBC/100 WBC (test See_Comment [Automat ed code = 7989443352) message] The system which generated this result transmitted reference range : 0.0 - 10.0 /100 WBCs. The refer ence range was not u sed to interpret th is result as normal/abnormal . NRBC x10^3 (test code <0.01 See_Comment [Auto mated = 5860596380) message] The s ystem which generated this result transmitted reference range : 10*3/?L. The reference range was not used to interpret this result as normal/abnormal . GRAN MAT (NEUT) % 68.1 % (test code = 770-8) IMM GRAN % (test code 0.40 % = 1582403783) LYMPH % (test code = 21.9 % 736-9) MONO % (test code = 8.9 % 5905-5) EOS % (test code = 0.3 % 713-8) BASO % (test code = 0.4 % 706-2) GRAN MAT x10^3(ANC) 5.38 10*3/uL 1.99-6.95 (test code = 0376244423) IMM GRAN x10^3 (test 0.03 10*3/uL 0.00-0.06 code = 5850273589) LYMPH x10^3 (test code 1.73 10*3/uL 1.09-3.23 = 731-0) MONO x10^3 (test code 0.70 10*3/uL 0.36-1.02 = 742-7) EOS x10^3 (test code = <0.03 0.06-0.53 L 711-2) BASO x10^3 (test code 0.03 10*3/uL 0.01-0.09 = 704-7) Lab Interpretation Abnormal (test code = 78824-7) [facility]MAG[facility]2021-09-28 09:49:03 Test Item Value Reference Range Interpretation Comments MAGNESIUM (test code = 4255169751) 2.0 mg/dL 1.7-2.4 Lab Interpretation (test code = Normal 43978-6) [facility]PH[facility]2021-09-28 09:49:03 Test Item Value Reference Range Interpretation Comments PHOSPHORUS (test code = 3003371488) 4.0 mg/dL 2.5-5.0 Lab Interpretation (test code = Normal 00759-6) [facility] Metabolic Panel (NA, K, CL, CO2, GLUCOSE, BUN, CREATININE, CA)2021-05-21 09:49:03 Test Item Value Reference Range Interpretation Comments NA (test code = 132 mmol/L 135-145 L 5624980229) K (test code = 4.3 mmol/L 3.5-5.0 3388323664) CL (test code = 105 mmol/L 98-108 1619533203) CO2 TOTAL (test code = 21 mmol/L 23-31 L 2391947815) AGAP (test code = 2-16 2132387820) BUN (test code = 25 mg/dL 7-23 H 7674817071) GLUCOSE (test code = 98 mg/dL 70-110 3735653475) CREATININE (test code = 1.20 mg/dL 0.60-1.25 0267994225) CALCIUM (test code = 8.4 mg/dL 8.6-10.6 L 4232451657) eGFR (test code = mL/min/1.73m2 9460134840) GILBERTO (test code = GILBERTO) Association of [...] tests). Lab Interpretation Abnormal (test code = 38303-9) [facility] with Syxzkeprxuay6618-42-27 09:22:22 Test Item Value Reference Range Interpretation [...] RDW-SD (test code = 45.6 fL 38.5-51.6 28525-3) RDW-CV (test code = 13.7 % 12.1-15.4 788-0) PLT (test code = See_Comment [Automated 777-3) message] The sy stem which generated this result transmitted reference range : 150 - 328 10*3/ ?L. The reference r meredith was not used to interpret this result as normal/abnormal . MPV (test code = 9.7 fL 9.8-13.0 L 46748-6) NRBC/100 WBC (test See_Comment [Automat ed code = 3494055981) message] The system which generated this result transmitted reference range : 0.0 - 10.0 /100 WBCs. The refer ence range was not u sed to interpret th is result as normal/abnormal . NRBC x10^3 (test code <0.01 See_Comment [Auto mated = 8384747001) message] The s ystem which generated this result transmitted reference range : 10*3/?L. The reference range was not used to interpret this result as normal/abnormal . GRAN MAT (NEUT) % 49.4 % (test code = 770-8) IMM GRAN % (test code 0.60 % = 3859015621) LYMPH % (test code = 35.2 % 736-9) MONO % (test code = 11.9 % 5905-5) EOS % (test code = 2.1 % 713-8) BASO % (test code = 0.8 % 706-2) GRAN MAT x10^3(ANC) 2.33 10*3/uL 1.99-6.95 (test code = 4516163325) IMM GRAN x10^3 (test 0.03 10*3/uL 0.00-0.06 code = 5748076125) LYMPH x10^3 (test code 1.66 10*3/uL 1.09-3.23 = 731-0) MONO x10^3 (test code 0.56 10*3/uL 0.36-1.02 = 742-7) EOS x10^3 (test code = 0.10 10*3/uL 0.06-0.53 711-2) BASO x10^3 (test code 0.04 10*3/uL 0.01-0.09 = 704-7) Lab Interpretation Abnormal (test code = 06002-4) [facility]2021-[facility] 20:21:19 Test Item Value Reference Range Interpretation Comments LIPASE (test code = 6833221397) 307 U/L 0-220 H Lab Interpretation (test code = Abnormal 39326-3) [facility] MET[facility]OLIC PAN[facility] (48805)2021-05-20 20:21:19 Test Item Value Reference Range Interpretation Comments NA (test code = 132 mmol/L 135-145 L 9459688218) K (test code = 4.3 mmol/L 3.5-5.0 1518390396) CL (test code = 100 mmol/L 98-108 0884317887) CO2 TOTAL (test code = 18 mmol/L 23-31 L 1913115157) AGAP (test code = 2-16 4753746992) BUN (test code = 32 mg/dL 7-23 H 5170918797) GLUCOSE (test code = 100 mg/dL 70-110 6187805268) CREATININE (test code = 1.76 mg/dL 0.60-1.25 H 8032060146) TOTAL BILI (test code = 0.7 mg/dL 0.1-1.4 7277878435) CALCIUM (test code = 9.6 mg/dL 8.6-10.6 5306061829) T PROTEIN (test code = 7.5 g/dL 6.3-8.2 6653043725) ALBUMIN (test code = 4.7 g/dL 3.5-5.0 4029506194) ALK PHOS (test code = 104 U/L 34-122 3793840671) ALTv (test code = 23 U/L 5-50 1742-6) AST(SGOT) (test code = 29 U/L 13-40 4042671134) eGFR (test code = mL/min/1.73m2 2614005283) GILBERTO (test code = GILBERTO) Association of [...] tests). Lab Interpretation Abnormal (test code = 72139-7) [facility] WITH [id number] 20:15:39 Test Item Value Reference Range Interpretation Comments WBC (test code = See_Comment [Automated message] 4890-2) The system [employer] generated this result transmitted ref erence range: 4.20 - 1 0.70 10*3/?L. The re ference range was not u sed to interpret this result as normal/abnor mal. RBC (test code = See_Comment [Automated message] 299-8) The system [employer] generated this result transmitted ref erence range: [...] RDW-SD (test code 44.8 fL 38.5-51.6 = 57703-7) RDW-CV (test code 13.7 % 12.1-15.4 = 788-0) PLT (test code = See_Comment [Automated message] 237-3) The system [employer] generated this result transmitted ref erence range: 150 - 32 8 10*3/?L. The re ference range was not u sed to interpret this result as normal/abnor mal. MPV (test code = 9.8 fL 9.8-13.0 72288-6) NRBC/100 WBC (test See_Comment [Automat ed message] code = 4019384630) The syste m which generated this result transmitted ref erence range: 0.0 - 10 .0 /100 WBCs. The refer ence range was not u sed to interpret this result as normal/abnor mal. NRBC x10^3 (test <0.01 See_Comment [Automated message] code = 3417598769) The syste m which generated this result transmitted ref erence range: 10*3/?L. The reference range was not used to interpr et this result as normal/abnormal . GRAN MAT (NEUT) % 55.9 % (test code = 770-8) IMM GRAN % (test 0.40 % code = 5686115256) LYMPH % (test code 32.5 % = 736-9) MONO % (test code 9.4 % = 5905-5) EOS % (test code = 1.2 % 713-8) BASO % (test code 0.6 % = 706-2) GRAN MAT 3.87 10*3/uL 1.99-6.95 x10^3(ANC) (test code = 4199873061) IMM GRAN x10^3 0.03 10*3/uL 0.00-0.06 (test code = 1406118870) LYMPH x10^3 (test 2.25 10*3/uL 1.09-3.23 code = 731-0) MONO x10^3 (test 0.65 10*3/uL 0.36-1.02 code = 742-7) EOS x10^3 (test 0.08 10*3/uL 0.06-0.53 code = 711-2) BASO x10^3 (test 0.04 10*3/uL 0.01-0.09 code = 704-7) [facility] Rjoen1757-70-46 20:07:57 Test Item Value Reference Range Interpretation Comments LACTIC ACID (test code = 1.81 mmol/L 0.50-2.20 6742770231) Lab Interpretation (test code = Normal 65510-3) [facility] Metabolic Panel (NA, K, CL, CO2, GLUCOSE, BUN, CREATININE, CA)2021-05-08 10:32:35 Test Item Value Reference Range Interpretation Comments NA (test code = 135 mmol/L 135-145 9746163491) K (test code = 4.2 mmol/L 3.5-5.0 2667476491) CL (test code = 106 mmol/L 98-108 3609820861) CO2 TOTAL (test code 23 mmol/L 23-31 = 4957699450) AGAP (test code = 2-16 1528213157) BUN (test code = 22 mg/dL 7-23 3083267329) GLUCOSE (test code = 87 mg/dL 70-110 0355754299) CREATININE (test code 1.21 mg/dL 0.60-1.25 = 3663449248) CALCIUM (test code = 8.7 mg/dL 8.6-10.6 8342227193) eGFR (test code = mL/min/1.73m2 9434828425) GILBERTO (test code = GILBERTO) Association of [...] abnormalities in imaging tests). [facility] Metabolic Panel (NA, K, CL, CO2, GLUCOSE, BUN, CREATININE, CA)2021-05-08 10:32:35 Test Item Value Reference Range Interpretation Comments NA (test code = 135 mmol/L 135-145 2924886095) K (test code = 4.2 mmol/L 3.5-5.0 2871900953) CL (test code = 106 mmol/L 98-108 8754755737) CO2 TOTAL (test code 23 mmol/L 23-31 = 4519924732) AGAP (test code = 2-16 4524218246) BUN (test code = 22 mg/dL 7-23 3948674416) GLUCOSE (test code = 87 mg/dL 70-110 7646650326) CREATININE (test code 1.21 mg/dL 0.60-1.25 = 4592388131) CALCIUM (test code = 8.7 mg/dL 8.6-10.6 5377286497) eGFR (test code = mL/min/1.73m2 7741682020) GILBERTO (test code = GILBERTO) Association of [...] urine or abnormalities in imaging tests). [facility] with Vzctccoacqkx3358-40-08 10:12:52 Test Item Value Reference Range Interpretation [...] RDW-SD (test code = 48.4 fL 38.5-51.6 43137-9) RDW-CV (test code = 14.0 % 12.1-15.4 788-0) PLT (test code = See_Comment [Automated 777-3) message] The sy stem which generated this result transmitted reference range : 150 - 328 10*3/ ?L. The reference r meredith was not used to interpret this result as normal/abnormal . MPV (test code = 9.6 fL 9.8-13.0 L 79251-9) NRBC/100 WBC (test See_Comment [Automat ed code = 2881726597) message] The system which generated this result transmitted reference range : 0.0 - 10.0 /100 WBCs. The refer ence range was not u sed to interpret th is result as normal/abnormal . NRBC x10^3 (test code <0.01 See_Comment [Auto mated = 1969832702) message] The s ystem which generated this result transmitted reference range : 10*3/?L. The reference range was not used to interpret this result as normal/abnormal . GRAN MAT (NEUT) % 55.6 % (test code = 770-8) IMM GRAN % (test code 0.20 % = 1661808346) LYMPH % (test code = 31.5 % 736-9) MONO % (test code = 9.9 % 5905-5) EOS % (test code = 2.0 % 713-8) BASO % (test code = 0.8 % 706-2) GRAN MAT x10^3(ANC) 2.76 10*3/uL 1.99-6.95 (test code = 9463578322) IMM GRAN x10^3 (test <0.03 0.00-0.06 code = 3470656276) LYMPH x10^3 (test code 1.56 10*3/uL 1.09-3.23 = 731-0) MONO x10^3 (test code 0.49 10*3/uL 0.36-1.02 = 742-7) EOS x10^3 (test code = 0.10 10*3/uL 0.06-0.53 711-2) BASO x10^3 (test code 0.04 10*3/uL 0.01-0.09 = 704-7) Lab Interpretation Abnormal (test code = 72404-8) [facility] with Yaryzpoxhhew6869-01-11 10:12:52 Test Item Value Reference Range Interpretation [...] RDW-SD (test code = 48.4 fL 38.5-51.6 83995-6) RDW-CV (test code = 14.0 % 12.1-15.4 788-0) PLT (test code = See_Comment [Automated 777-3) message] The sy stem which generated this result transmitted reference range : 150 - 328 10*3/ ?L. The reference r meredith was not used to interpret this result as normal/abnormal . MPV (test code = 9.6 fL 9.8-13.0 L 19309-4) NRBC/100 WBC (test See_Comment [Automat ed code = 6311790597) message] The system which generated this result transmitted reference range : 0.0 - 10.0 /100 WBCs. The refer ence range was not u sed to interpret th is result as normal/abnormal . NRBC x10^3 (test code <0.01 See_Comment [Auto mated = 2385236054) message] The s ystem which generated this result transmitted reference range : 10*3/?L. The reference range was not used to interpret this result as normal/abnormal . GRAN MAT (NEUT) % 55.6 % (test code = 770-8) IMM GRAN % (test code 0.20 % = 0862845713) LYMPH % (test code = 31.5 % 736-9) MONO % (test code = 9.9 % 5905-5) EOS % (test code = 2.0 % 713-8) BASO % (test code = 0.8 % 706-2) GRAN MAT x10^3(ANC) 2.76 10*3/uL 1.99-6.95 (test code = 8815848140) IMM GRAN x10^3 (test <0.03 0.00-0.06 code = 4203626028) LYMPH x10^3 (test code 1.56 10*3/uL 1.09-3.23 = 731-0) MONO x10^3 (test code 0.49 10*3/uL 0.36-1.02 = 742-7) EOS x10^3 (test code = 0.10 10*3/uL 0.06-0.53 711-2) BASO x10^3 (test code 0.04 10*3/uL 0.01-0.09 = 704-7) Lab Interpretation Abnormal (test code = 94522-8) [facility] (NA, K, CL, CO2, GLUCOSE, BUN, CREATININE, CA)2021-05-08 01:11:57 Test Item Value Reference Range Interpretation Comments NA (test code = 134 mmol/L 135-145 L 1033503772) K (test code = 4.7 mmol/L 3.5-5.0 8842968845) CL (test code = 100 mmol/L 98-108 8231726844) CO2 TOTAL (test code = 24 mmol/L 23-31 5280079135) AGAP (test code = 2-16 5081405233) BUN (test code = 27 mg/dL 7-23 H 8994576161) GLUCOSE (test code = 94 mg/dL 70-110 8228978156) CREATININE (test code = 1.31 mg/dL 0.60-1.25 H 8413386769) CALCIUM (test code = 9.5 mg/dL 8.6-10.6 1614086078) eGFR (test code = mL/min/1.73m2 2263388182) GILBERTO (test code = GILBERTO) Association of [...] tests). Lab Interpretation Abnormal (test code = 29613-0) [facility] PAN[facility] (80844) (ALB,T.PRO,BILI T,BU/BC,ALT,AST,ALK PHOS)2021-05-08 01:11:57 Test Item Value Reference Range Interpretation Comments TOTAL BILI (test code = 2385013251) 0.8 mg/dL 0.1-1.1 BILI UNCON (test code = 6634743634) 0.2 mg/dL 0.1-1.1 BILI CONJ (test code = 7483215765) 0.0 mg/dL 0.0-0.3 T PROTEIN (test code = 1120141825) 7.1 g/dL 6.3-8.2 ALBUMIN (test code = 7731542011) 4.4 g/dL 3.5-5.0 ALK PHOS (test code = 5050422557) 88 U/L 34-122 ALTv (test code = 1742-6) 40 U/L 5-50 AST(SGOT) (test code = 8331389077) 38 U/L 13-40 Lab Interpretation (test code = Normal 40413-9) [facility] (NA, K, CL, CO2, GLUCOSE, BUN, CREATININE, CA)2021-05-08 01:11:57 Test Item Value Reference Range Interpretation Comments NA (test code = 134 mmol/L 135-145 L 4655283157) K (test code = 4.7 mmol/L 3.5-5.0 3535429921) CL (test code = 100 mmol/L 98-108 1086503812) CO2 TOTAL (test code = 24 mmol/L 23-31 0869264568) AGAP (test code = 2-16 0221203266) BUN (test code = 27 mg/dL 7-23 H 4409830358) GLUCOSE (test code = 94 mg/dL 70-110 8692788879) CREATININE (test code = 1.31 mg/dL 0.60-1.25 H 5346931974) CALCIUM (test code = 9.5 mg/dL 8.6-10.6 2949148032) eGFR (test code = mL/min/1.73m2 7594155596) GILBERTO (test code = GILBERTO) Association of [...] tests). Lab Interpretation Abnormal (test code = 49346-0) [facility] (60185) (ALB,T.PRO,BILI T,BU/BC,ALT,AST,ALK PHOS)2021-05-08 01:11:57 Test Item Value Reference Range Interpretation Comments TOTAL BILI (test code = 5167301715) 0.8 mg/dL 0.1-1.1 BILI UNCON (test code = 6011699988) 0.2 mg/dL 0.1-1.1 BILI CONJ (test code = 2845354163) 0.0 mg/dL 0.0-0.3 T PROTEIN (test code = 3577976959) 7.1 g/dL 6.3-8.2 ALBUMIN (test code = 6724954730) 4.4 g/dL 3.5-5.0 ALK PHOS (test code = 0337404001) 88 U/L 34-122 ALTv (test code = 1742-6) 40 U/L 5-50 AST(SGOT) (test code = 3229291376) 38 U/L 13-40 Lab Interpretation (test code = Normal 95059-2) [facility] WITH [id number] 00:59:56 Test Item Value Reference Range Interpretation Comments WBC (test code = See_Comment [Automated 5490-2) message] The sy stem [...] RDW-SD (test code = 46.9 fL 38.5-51.6 80817-6) RDW-CV (test code = 13.9 % 12.1-15.4 788-0) PLT (test code = See_Comment [Automated 777-3) message] The sy stem which generated this result transmitted reference range : 150 - 328 10*3/ ?L. The reference r meredith was not used to interpret this result as normal/abnormal . MPV (test code = 10.0 fL 9.8-13.0 58566-1) NRBC/100 WBC (test See_Comment [Automat ed code = 0871989083) message] The system which generated this result transmitted reference range : 0.0 - 10.0 /100 WBCs. The refer ence range was not u sed to interpret th is result as normal/abnormal . NRBC x10^3 (test code <0.01 See_Comment [Auto mated = 4824655739) message] The s ystem which generated this result transmitted reference range : 10*3/?L. The reference range was not used to interpret this result as normal/abnormal . GRAN MAT (NEUT) % 53.9 % (test code = 770-8) IMM GRAN % (test code 0.30 % = 4222914517) LYMPH % (test code = 32.0 % 736-9) MONO % (test code = 11.6 % 5905-5) EOS % (test code = 1.6 % 713-8) BASO % (test code = 0.6 % 706-2) GRAN MAT x10^3(ANC) 3.67 10*3/uL 1.99-6.95 (test code = 0411206935) IMM GRAN x10^3 (test <0.03 0.00-0.06 code = 1399216642) LYMPH x10^3 (test code 2.18 10*3/uL 1.09-3.23 = 731-0) MONO x10^3 (test code 0.79 10*3/uL 0.36-1.02 = 742-7) EOS x10^3 (test code = 0.11 10*3/uL 0.06-0.53 711-2) BASO x10^3 (test code 0.04 10*3/uL 0.01-0.09 = 704-7) Lab Interpretation Abnormal (test code = 53971-6) [facility] WITH [id number] 00:59:56 Test Item Value Reference Range Interpretation [...] RDW-SD (test code = 46.9 fL 38.5-51.6 83239-7) RDW-CV (test code = 13.9 % 12.1-15.4 788-0) PLT (test code = See_Comment [Automated 777-3) message] The sy stem which generated this result transmitted reference range : 150 - 328 10*3/ ?L. The reference r meredith was not used to interpret this result as normal/abnormal . MPV (test code = 10.0 fL 9.8-13.0 25172-0) NRBC/100 WBC (test See_Comment [Automat ed code = 3121933134) message] The system which generated this result transmitted reference range : 0.0 - 10.0 /100 WBCs. The refer ence range was not u sed to interpret th is result as normal/abnormal . NRBC x10^3 (test code <0.01 See_Comment [Auto mated = 1924828241) message] The s ystem which generated this result transmitted reference range : 10*3/?L. The reference range was not used to interpret this result as normal/abnormal . GRAN MAT (NEUT) % 53.9 % (test code = 770-8) IMM GRAN % (test code 0.30 % = 2873844995) LYMPH % (test code = 32.0 % 736-9) MONO % (test code = 11.6 % 5905-5) EOS % (test code = 1.6 % 713-8) BASO % (test code = 0.6 % 706-2) GRAN MAT x10^3(ANC) 3.67 10*3/uL 1.99-6.95 (test code = 9105450227) IMM GRAN x10^3 (test <0.03 0.00-0.06 code = 9502908173) LYMPH x10^3 (test code 2.18 10*3/uL 1.09-3.23 = 731-0) MONO x10^3 (test code 0.79 10*3/uL 0.36-1.02 = 742-7) EOS x10^3 (test code = 0.11 10*3/uL 0.06-0.53 711-2) BASO x10^3 (test code 0.04 10*3/uL 0.01-0.09 = 704-7) Lab Interpretation Abnormal (test code = 52298-0) [facility] W/AUTO [id number] 09:20:00 Test Item Value Reference Range Interpretation [...] (test code NO = MDIFF) CBC W/AUTO [id number] 08:59:00 Test Item Value Reference Range Interpretation [...] REQUIRED (test code = MDIFF) BASIC METABOLIC [id number] 08:21:00 Test Item Value Reference Range Interpretation [...] 8.4 mg/dL 8.0-10.5 N CA) BASIC METABOLIC [id number] 08:34:00 Test Item Value Reference Range Interpretation [...] 8.4 mg/dL 8.0-10.5 N CA) CBC W/AUTO [id number] 07:41:00 Test Item Value Reference Range Interpretation [...] = MDIFF) UA RFLX MICR CULT IF [id number] 10:10:00 Test Item Value Reference Range Interpretation [...] Suprapubic Pain Temperature > 100.4 FSpecimen Description: [facility] MET[facility]OLIC [id number] 04:13:00 Test Item Value Reference Range Interpretation [...] 9.1 mg/dL 8.0-10.5 N CA) Coronavirus 2018 [facility] [id number] 22:03:00 Test Item Value Reference Range Interpretation Comments Coronavirus 2019 Negative Negative Performed b y certified nCoV 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 Negative result s do not preclude MCSS-GvO-1yfvkl tion and should not be u sed as the sole basis forp atient management deci sions. Negative result s should beconsidered in the context of a patient's recent exposures,histo ry, presence of clinical sig ns and symptoms consis tentwith COVID-19. CBC W/AUTO [id number] 21:11:00 Test Item Value Reference Range Interpretation [...] MX#) 0.6 k/mm3 0.1-0.8 N BASIC METABOLIC [id number] 19:00:00 Test Item Value Reference Range Interpretation [...] POCGLU) 92 MG/DL - CT ABD PELVIS W/[id number] 00:00:00 [facility] 1970 Sex: MName: DORA MCNEILL FSED : 1970 Age/S: 51 / M [address] [facility] Unit #: [id number] Loc: [place] [address] Phys: Montserrat Benoit MD Acct: [id number] Dis Date: Status: REG ER PHONE #: Exam Date: 04/28/2021 1914 FAX #: Reason: epigastric and LLQ pain, R-sided colostomy EXAMS: CPT CODE: [id number] CT ABD PELVIS W/CONT 73328 PROCEDURE INFORMATION: Exam: CT Abdomen And Pelvis [...] / M [address] [facility] Unit #: [id number] Loc: [place] [address] Phys: Montserrat Benoit MD Acct: [id number] Dis Date: Status: REG ER PHONE #: Exam Date: 04/28/2021 8634 FAX #: Reason: epigastric and LLQ pain, R-sided colostomy EXAMS: CPT CODE: [id number] CT ABD PELVIS W/CONT 39516 <Continued> Reproductive: Unremarkable as visualized. Bones/joints: Unremarkable. No acute fracture. Soft tissues: Unremarkable. IMPRESSION: 1. 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 2. Mild long segment bowel wall thickening/mucosal prominence compatible with an enteritis. No evidence for obstruction. at 1956 Reported and signed by: Hector Nichols M.D. CC: Montserrat Benoit MD Technologist:Stephanie Beran, RT(R)(CT) CTDI: DLP: Trnscb Date/Time: 04/28/2021 (1955) GarettKWL Orig Print D/T: S: 04/28/2021 (1955) PAGE 2 Signed ReportBasic Metabolic Panel (NA, K, CL, CO2, GLUCOSE, BUN, CREATININE, CA)2020-08-23 10:29:00 Test Item Value Reference Range Interpretation Comments NA (test code = 139 mmol/L 135-145 4855343636) K (test code = 4.0 mmol/L 3.5-5 3252908771) CL (test code = 108 mmol/L 98-108 2800367173) CO2 TOTAL (test code = 22 mmol/L 23-31 L 1893089887) AGAP (test code = 2-16 7137084220) BUN (test code = 25 mg/dL 7-23 H 4775818309) GLUCOSE (test code = 91 mg/dL 70-110 3941005452) CREATININE (test code = 1.14 mg/dL 0.6-1.25 6570092585) CALCIUM (test code = 8.9 mg/dL 8.6-10.6 5675996033) eGFR Calculation mL/min/1.73m2 (Non-) (test code = 3949399773) eGFR Calculation mL/min/1.73m2 () (test code = 1054596731) GILBERTO (test code = GILBERTO) Association of [...] tests). Lab Interpretation Abnormal (test code = 87371-9) [facility] / [id number] 10:13:00 Test Item Value Reference Range Interpretation Comments WBC (test code = 6690-2) See_Comment [A utomated message] The system [employer] generated this result transmit dain reference range : 4.20 - 10.70 10*3/?L. The reference range was not used to interpret this result as normal/abnormal . RBC (test code = 789-8) See_Comment L [Au tomated message] The system [employer] generated this result transmit dain reference range [...] 777-3) See_Comment [Au tomated message] The system [employer] generated this result transmit dain reference range : 150 - 328 10*3/?L. The reference range was not used to interpret this result as normal/abnormal . MPV (test code = 9.0 fL 9.8-13 L 00858-8) RDW-CV (test code = 18.7 % 12.1-15.4 H 788-0) RDW-SD (test code = 59.7 fL 38.5-51.6 H 74868-6) NRBC x10^3 (test code = <0.01 See_Comment [Au tomated message] 0069980730) The system [employer] generated this result transmit dain reference range : 10*3/?L. The reference range was not used to interpret this result as normal/abnormal . NRBC/100 WBC (test code See_Comment [Au tomated message] = 8466120923) The system [employer] generated this result transmit dain reference range : 0.0 - 10.0 /100 WBC s. The reference r meredith was not used to interpret this result as normal/abnormal . IPF % (test code = 1677463403) Lab Interpretation (test Abnormal code = 71215-8) [facility]COVID-[facility] (ID NOW RAPID TESTING)2020-08-23 00:56:00 Test Item Value Reference Range Interpretation Comments SARS-CoV-2 Rapid ID NOW Not Detected Not Detected (test code = 59718-9) GILBERTO (test code = GILBERTO) ID NOW COVID-19 Assay is an isothermal nucleic acid amplification test intended for the qualitative detection of nucleic acid from SARS-CoV-2 viral RNA in nasopharyngeal (INFORMATICS SPEC) specimens. It is used under Emergency Use [...] indicated. Lab Interpretation Normal (test code = 70191-8) [facility] Metabolic Panel (NA, K, CL, CO2, GLUCOSE, BUN, CREATININE, CA)2020-08-22 22:36:00 Test Item Value Reference Range Interpretation Comments NA (test code = 133 mmol/L 135-145 L 8329678942) K (test code = 4.5 mmol/L 3.5-5 3619783833) CL (test code = 104 mmol/L 98-108 0504022530) CO2 TOTAL (test code = 25 mmol/L 23-31 9652386087) AGAP (test code = 2-16 8471875989) BUN (test code = 27 mg/dL 7-23 H 1910762029) GLUCOSE (test code = 94 mg/dL 70-110 8715551114) CREATININE (test code = 1.33 mg/dL 0.6-1.25 H 9944340661) CALCIUM (test code = 9.5 mg/dL 8.6-10.6 3787782438) eGFR Calculation mL/min/1.73m2 (Non-) (test code = 9031864816) eGFR Calculation mL/min/1.73m2 () (test code = 9739125358) GILBERTO (test code = GILBERTO) Association of [...] tests). Lab Interpretation Abnormal (test code = 60254-6) [facility] CampusHep[facility] Function Panel (ALB, T.PRO, BILI T, BU/BC, ALT, AST, ALK PHOS)2020-08-22 22:36:00 Test Item Value Reference Range Interpretation Comments TOTAL BILI (test code = 0055185544) 0.4 mg/dL 0.1-1.1 BILI UNCON (test code = 1790131257) 0.1 mg/dL 0.1-1.1 BILI CONJ (test code = 0187897724) 0.0 mg/dL 0-0.3 T PROTEIN (test code = 0847800744) 6.8 g/dL 6.3-8.2 ALBUMIN (test code = 8140798513) 4.0 g/dL 3.5-5 ALK PHOS (test code = 6286858851) 78 U/L 34-122 ALTv (test code = 1742-6) 35 U/L 5-50 AST(SGOT) (test code = 6744452262) 29 U/L 13-40 Lab Interpretation (test code = Normal 09310-7) [facility] CampusCBC with [id number] 22:15:00 Test Item Value Reference Range Interpretation [...] (test code = 60.6 fL 38.5-51.6 H 34755-3) RDW-CV (test code = 19.0 % 12.1-15.4 H 788-0) PLT (test code = See_Comment [Automated 777-3) message] The sy stem which generated this result transmitted reference range : 150 - 328 10*3/ ?L. The reference r meredith was not used to interpret this result as normal/abnormal . MPV (test code = 9.3 fL 9.8-13 L 18741-0) NRBC/100 WBC (test See_Comment [Automat ed code = 8524596779) message] The system which generated this result transmitted reference range : 0.0 - 10.0 /100 WBCs. The refer ence range was not u sed to interpret th is result as normal/abnormal . NRBC x10^3 (test code <0.01 See_Comment [Auto mated = 3644428386) message] The s ystem which generated this result transmitted reference range : 10*3/?L. The reference range was not used to interpret this result as normal/abnormal . GRAN MAT (NEUT) % 58.6 % (test code = 770-8) IMM GRAN % (test code 0.60 % = 3740132765) LYMPH % (test code = 28.2 % 736-9) MONO % (test code = 9.5 % 5905-5) EOS % (test code = 2.4 % 713-8) BASO % (test code = 0.7 % 706-2) GRAN MAT x10^3(ANC) 3.14 10*3/uL 1.99-6.95 (test code = 0517354868) IMM GRAN x10^3 (test 0.03 10*3/uL 0-0.06 code = 8825985598) LYMPH x10^3 (test code 1.51 10*3/uL 1.09-3.23 = 731-0) MONO x10^3 (test code 0.51 10*3/uL 0.36-1.02 = 742-7) EOS x10^3 (test code = 0.13 10*3/uL 0.06-0.53 711-2) BASO x10^3 (test code 0.04 10*3/uL 0.01-0.09 = 704-7) Lab Interpretation Abnormal (test code = 19760-7) [facility] CampusCT SOFT TISSUE NECK W [id number] 00:47:10Impression: 1. Patent aerodigestive tract.2. No discrete [...] glands are normal. Thyroid gland is unremarkable. Pile Header spaces are normal. Buccal spaces are normal. [...] submandibular glands are normal. Thyroid gland is unremarkable.Pile Header spaces are normal. Buccal spaces are normal. [...] or abscess is identified.RL: [id number] of Report UnNorth [facility] CampusCOVID-19 (ID NOW RAPID TESTING)2020-07-09 23:23:00 Test Item Value Reference Range Interpretation Comments SARS-CoV-2 Rapid ID NOW Not Detected Not Detected (test code = 75344-4) GILBERTO (test code = GILBERTO) ID NOW COVID-19 Assay is an isothermal nucleic acid amplification test intended for the qualitative detection of nucleic acid from SARS-CoV-2 viral RNA in nasopharyngeal (INFORMATICS SPEC) specimens. It is used under Emergency Use [...] indicated. Lab Interpretation Normal (test code = 43413-5) [facility] CampusUrinalysis2020-11-16 23:21:00 Test Item Value Reference Range Interpretation Comments APPEARANCE (test code = Clear Clear 8101709241) COLOR (test code = Yellow Yellow 3495121881) PH (test code = 4.8-8.0 2201784797) SP GRAVITY (test code = 1.003-1.030 6021266062) GLU U QUAL (test code = Normal Normal 3102794611) BLOOD (test code = Negative Negative 0967955874) KETONES (test code = Negative Negative 3891930959) PROTEIN (test code = 30 mg/dL Negative A 2887-8) UROBILIN (test code = Normal Normal 2544196302) BILIRUBIN (test code = Negative Negative 8872745264) NITRITE (test code = Negative Negative 3287828566) LEUK ROGER (test code = Negative Negative 3271368414) RBC/HPF (test code = <1 See_Comment [Autom ated message] 6276864055) The system [employer] generated this result transmitted ref erence range: 0 - 3 HP F. The reference range was not used to int erpret this result as normal/abnormal . WBC/HPF (test code = See_Comment [Autom ated message] 3809644370) The system [employer] generated this result transmitted ref erence range: 0 - 5 HP F. The reference range was not used to int erpret this result as normal/abnormal . BACTERIA (test code = Negative Negative 6552812180) MUCOUS (test code = Moderate Negative LPF A 0922367341) HYAL CAST (test code = See_Comment H [Aut omated message] 1963355440) The system [employer] generated this result transmitted ref erence range: <=2 LPF. The reference range was not used to int erpret this result as normal/abnormal . Lab Interpretation (test Abnormal code = 46988-8) [facility] Met[facility] (NA, K, CL, CO2, GLUCOSE, BUN, CREATININE, CA)2020-07-09 23:20:00 Test Item Value Reference Range Interpretation Comments NA (test code = 135 mmol/L 135-145 6728529704) K (test code = 3.9 mmol/L 3.5-5 0159991309) CL (test code = 107 mmol/L 98-108 4321805658) CO2 TOTAL (test code = 20 mmol/L 23-31 L 9654024718) AGAP (test code = 2-16 4399919569) BUN (test code = 27 mg/dL 7-23 H 1131632050) GLUCOSE (test code = 86 mg/dL 70-110 5210325722) CREATININE (test code = 1.11 mg/dL 0.6-1.25 0005467408) CALCIUM (test code = 9.0 mg/dL 8.6-10.6 4830579444) eGFR Calculation mL/min/1.73m2 (Non-) (test code = 7485510426) eGFR Calculation mL/min/1.73m2 () (test code = 2778210086) GILBERTO (test code = GILBERTO) Association of [...] tests). Lab Interpretation Abnormal (test code = 01100-0) [facility] STREP SCREEN FOR GROUP [id number] 23:11:00 Test Item Value Reference Range Interpretation Comments Streptococcus pyogenes (group A) Negative Negative antigen (test code = 34245-7) Lab Interpretation (test code = Normal 43198-0) [facility] with [id number] 23:02:00 Test Item Value Reference Range Interpretation [...] (test code = 55.5 fL 38.5-51.6 H 21520-7) RDW-CV (test code = 18.9 % 12.1-15.4 H 788-0) PLT (test code = See_Comment [Automated 777-3) message] The sy stem which generated this result transmitted reference range : 150 - 328 10*3/ ?L. The reference r meredith was not used to interpret this result as normal/abnormal . MPV (test code = 8.9 fL 9.8-13 L 60057-3) NRBC/100 WBC (test See_Comment [Automat ed code = 3693219193) message] The system which generated this result transmitted reference range : 0.0 - 10.0 /100 WBCs. The refer ence range was not u sed to interpret th is result as normal/abnormal . NRBC x10^3 (test code <0.01 See_Comment [Auto mated = 0049015722) message] The s ystem which generated this result transmitted reference range : 10*3/?L. The reference range was not used to interpret this result as normal/abnormal . GRAN MAT (NEUT) % 59.4 % (test code = 770-8) IMM GRAN % (test code 0.20 % = 1572003500) LYMPH % (test code = 29.9 % 736-9) MONO % (test code = 9.0 % 5905-5) EOS % (test code = 1.2 % 713-8) BASO % (test code = 0.3 % 706-2) GRAN MAT x10^3(ANC) 3.56 10*3/uL 1.99-6.95 (test code = [id number]) IMM GRAN x10^3 (test <0.03 0-0.06 code = [id number]) LYMPH x10^3 (test code 1.79 10*3/uL 1.09-3.23 = 731-0) MONO x10^3 (test code 0.54 10*3/uL 0.36-1.02 = 742-7) EOS x10^3 (test code = 0.07 10*3/uL 0.06-0.53 711-2) BASO x10^3 (test code <0.03 0.01-0.09 = 704-7) Lab Interpretation Abnormal (test code = 35930-9) [facility]00 Test Item Value Reference Range Interpretation Comments APPEARANCE (test code = Hazy Clear A [id number]) COLOR (test code = Yellow Yellow [id number]) PH (test code = 4.8-8.0 1125294550) SP GRAVITY (test code = 1.003-1.030 H [id number]) GLU U QUAL (test code = Normal Normal 0900675179) BLOOD (test code = Negative Negative 7073419754) KETONES (test code = Negative Negative 4363730042) PROTEIN (test code = Negative Negative 2887-8) UROBILIN (test code = Normal Normal 5375931607) BILIRUBIN (test code = Negative Negative 8617875942) NITRITE (test code = Negative Negative 0635952175) LEUK ROGER (test code = Negative Negative 2658325535) RBC/HPF (test code = See_Comment H [Autom ated message] 6477499373) The system The Dodo generated this result transmitted ref erence range: 0 - 3 HP F. The reference range was not used to int erpret this result as normal/abnormal . WBC/HPF (test code = See_Comment [Autom ated message] 3605991411) The system The Dodo generated this result transmitted ref erence range: 0 - 5 HP F. The reference range was not used to int erpret this result as normal/abnormal . BACTERIA (test code = Negative Negative 8733188725) MUCOUS (test code = Moderate Negative LPF A 2033401672) CA OXALATE (test code = See_Comment [Au tomated message] 6516031347) The system The Dodo generated this result transmitted ref erence range: <=1 HPF. The reference range was not used to int erpret this result as normal/abnormal . SPERM (test code = See_Comment H [Automat ed message] 0065106658) The system The Dodo generated this result transmitted ref erence range: <=1 HPF. The reference range was not used to int erpret this result as normal/abnormal . HYAL CAST (test code = See_Comment H [Aut omated message] 3451202784) The system The Dodo generated this result transmitted ref erence range: <=2 LPF. The reference range was not used to int erpret this result as normal/abnormal . Lab Interpretation (test Abnormal code = 31518-4) [facility] CampusCT ABDOMEN PELVIS W [id number] 13:22:00CT Abdomen and Pelvis with intravenous contrast. [...] infection. Left seminal vesicleshowed no significant enhancement. [facility], Radiant Results Inft User - 06/05/2020 8:23 [...] sign of infection. Left seminal vesicleshowed no significantenhancement.[facility] CampusEnderlivingston regional hospitalmikala [id number] 12:40:00 Test Item Value Reference Range Interpretation Comments TROPONIN I (test <0.012 See_Comment [Automated code = 6586019984) message] The system which generated this result [...] ? Lab Interpretation Normal (test code = 40944-2) [facility] CampusBasi Metabolic Panel (NA, K, CL, CO2, GLUCOSE, BUN, CREATININE, CA)2020-06-05 12:28:00 Test Item Value Reference Range Interpretation Comments NA (test code = 139 mmol/L 135-145 9547544100) K (test code = 4.4 mmol/L 3.5-5 8647739609) CL (test code = 112 mmol/L 98-108 H 8917369505) CO2 TOTAL (test code = 24 mmol/L 23-31 8423012659) AGAP (test code = 2-16 4469395286) BUN (test code = 23 mg/dL 7-23 0709976838) GLUCOSE (test code = 88 mg/dL 70-110 1843028250) CREATININE (test code = 0.96 mg/dL 0.6-1.25 2105749870) CALCIUM (test code = 9.5 mg/dL 8.6-10.6 6756927221) eGFR Calculation mL/min/1.73m2 (Non-) (test code = 7984460046) eGFR Calculation mL/min/1.73m2 () (test code = 6116122184) GILBERTO (test code = GILBERTO) Association of [...] tests). Lab Interpretation Abnormal (test code = 89967-5) [facility] CampusHepatic Function Panel (ALB, T.PRO, BILI T, BU/BC, ALT, AST, ALK PHOS)2020-06-05 12:28:00 Test Item Value Reference Range Interpretation Comments TOTAL BILI (test code = 7199056034) 0.5 mg/dL 0.1-1.1 BILI UNCON (test code = 2501671700) 0.3 mg/dL 0.1-1.1 BILI CONJ (test code = 6291601900) 0.0 mg/dL 0-0.3 T PROTEIN (test code = 5785908589) 6.6 g/dL 6.3-8.2 ALBUMIN (test code = 6669788581) 3.7 g/dL 3.5-5 ALK PHOS (test code = 8197467934) 79 U/L 34-122 ALTv (test code = 1742-6) 23 U/L 5-50 AST(SGOT) (test code = 9964657963) 27 U/L 13-40 Lab Interpretation (test code = Normal 31718-9) [facility] CampusLipase [id number] 12:28:00 Test Item Value Reference Range Interpretation Comments LIPASE (test code = 5920833931) 150 U/L 0-220 Lab Interpretation (test code = Normal 04254-0) [facility] CampusCBC with [id number] 12:11:00 Test Item Value Reference Range Interpretation [...] (test code = 62.2 fL 38.5-51.6 H 86151-3) RDW-CV (test code = 20.0 % 12.1-15.4 H 788-0) PLT (test code = See_Comment [Automated 777-3) message] The sy stem which generated this result transmitted reference range : 150 - 328 10*3/ ?L. The reference r meredith was not used to interpret this result as normal/abnormal . MPV (test code = 10.0 fL 9.8-13 56099-8) NRBC/100 WBC (test See_Comment [Automat ed code = 8715141472) message] The system which generated this result transmitted reference range : 0.0 - 10.0 /100 WBCs. The refer ence range was not u sed to interpret th is result as normal/abnormal . NRBC x10^3 (test code <0.01 See_Comment [Auto mated = 1295861152) message] The s ystem which generated this result transmitted reference range : 10*3/?L. The reference range was not used to interpret this result as normal/abnormal . GRAN MAT (NEUT) % 65.7 % (test code = 770-8) IMM GRAN % (test code 0.30 % = 5102425384) LYMPH % (test code = 21.2 % 736-9) MONO % (test code = 10.0 % 5905-5) EOS % (test code = 2.3 % 713-8) BASO % (test code = 0.5 % 706-2) GRAN MAT x10^3(ANC) 3.99 10*3/uL 1.99-6.95 (test code = 9000134127) IMM GRAN x10^3 (test <0.03 0-0.06 code = 8911439253) LYMPH x10^3 (test code 1.29 10*3/uL 1.09-3.23 = 731-0) MONO x10^3 (test code 0.61 10*3/uL 0.36-1.02 = 742-7) EOS x10^3 (test code = 0.14 10*3/uL 0.06-0.53 711-2) BASO x10^3 (test code 0.03 10*3/uL 0.01-0.09 = 704-7) Lab Interpretation Abnormal (test code = 60444-9) [facility] CampusLactic Acid Whole [id number] 12:04:00 Test Item Value Reference Range Interpretation Comments LACTIC ACID (test code = 1.23 mmol/L 9119076299) [facility] CampusIR ABSCESS DRAIN [id number] 14:57:23 Successful abscessogram demonstrated unchanged position of [...] consentwas obtained. Prior to beginning the procedure, [place] Protocol was usedtoconfirm the patient's identity and planned procedure. Maximum sterilebarriers including cap, mask, momin nd hygiene, sterile gloves, sterile gown,large sterile drape and cutaneous antisepsis were used. Theskin overlying the existing drainage catheter in the right upperquadrant of the abdomen was sterilely prepped, draped and infiltrated with1 percent lidocaine. A sterilisation technician image was documented prior to the injection [...] drainage catheter and with questionablefistulization to bowel. [facility], Radiant Results Inft User - 05/31/2020 9:58 AM CDTEXAMINATION: PERCUTANEOUS PERIHEPATIC ABSCESS DRAINAGE CATHETEREVALUATION/EXCHANGE.HISTORY: 50 years-old; Male; s/p Drain placement in right abdomen fluidcollection. No output for 3 consecutive days. Please eval for possibleremoval.ATTENDEES: Attending radiologist: Dr. Sadiq Gordon; Resident: Dr. Johnny Tilley;[facility] resident: Dr. Leeanna Valenzuela.SEDATION: No moderate sedation was administered for this procedure.RADIATION DOSE: 7.7 mGy.TECHNIQUE: The risks, benefits and alternatives were discussed and informed consentwas obtained. Prior to beginning the procedure, [place] Protocol was usedto confirm the patient's identity and planned procedure. Maximum sterilebarriers including cap, mask, hand hygiene, sterile gloves, sterile gown,large sterile drape and cutaneous antisepsis were used. The skin overlying the existing drainage catheter in the right upperquadrant of the abdomen was sterilely prepped, draped and infiltrated with1 percent lidocaine. A sterilisation technician image was documented prior to the injection [...] [facility]BAS[facility] (NA, K, CL, CO2, GLUCOSE, BUN, CREATININE, CA)2020-05-31 08:13:00 Test Item Value Reference Range Interpretation Comments NA (test code = 135 mmol/L 135-145 6118488531) K (test code = 4.1 mmol/L 3.5-5 7108144153) CL (test code = 99 mmol/L 98-108 3192234872) CO2 TOTAL (test code = 32 mmol/L 23-31 H 4272492259) AGAP (test code = 2-16 3804386659) BUN (test code = 14 mg/dL 7-23 7498057125) GLUCOSE (test code = 89 mg/dL 70-110 5547411361) CREATININE (test code = 0.67 mg/dL 0.6-1.25 1374481462) CALCIUM (test code = 8.2 mg/dL 8.6-10.6 L 8122968502) eGFR Calculation mL/min/1.73m2 (Non-) (test code = 1754089640) eGFR Calculation mL/min/1.73m2 () (test code = 4924378970) GILBERTO (test code = GILBERTO) Association of [...] tests). Lab Interpretation Abnormal (test code = 23068-4) [facility] CampusMAGNESIUM2020-10-08 08:13:00 Test Item Value Reference Range Interpretation Comments MAGNESIUM (test code = 6600062852) 1.8 mg/dL 1.7-2.4 Lab Interpretation (test code = Normal 67587-4) [facility] CampusPHOSPHORUS2020-10-08 08:13:00 Test Item Value Reference Range Interpretation Comments PHOSPHORUS (test code = 5032858640) 5.2 mg/dL 2.5-5 H Lab Interpretation (test code = Abnormal 46959-3) [facility] CampusCB WITH [id number] 08:05:00 Test Item Value Reference Range Interpretation Comments WBC (test code = See_Comment L [Automated 5650-2) message] The sy stem which generated this [...] (test code = 57.9 fL 38.5-51.6 H 25843-9) RDW-CV (test code = 18.7 % 12.1-15.4 H 788-0) PLT (test code = See_Comment [Automated 777-3) message] The sy stem which generated this result transmitted reference range : 150 - 328 10*3/ ?L. The reference r meredith was not used to interpret this result as normal/abnormal . MPV (test code = 10.3 fL 9.8-13 68559-1) NRBC/100 WBC (test See_Comment [Automat ed code = 7213802381) message] The system which generated this result transmitted reference range : 0.0 - 10.0 /100 WBCs. The refer ence range was not u sed to interpret th is result as normal/abnormal . NRBC x10^3 (test code <0.01 See_Comment [Auto mated = 9151531967) message] The s ystem which generated this result transmitted reference range : 10*3/?L. The reference range was not used to interpret this result as normal/abnormal . GRAN MAT (NEUT) % 56.4 % (test code = 770-8) IMM GRAN % (test code 0.50 % = 8905460854) LYMPH % (test code = 26.2 % 736-9) MONO % (test code = 12.2 % 5905-5) EOS % (test code = 4.2 % 713-8) BASO % (test code = 0.5 % 706-2) GRAN MAT x10^3(ANC) 2.31 10*3/uL 1.99-6.95 (test code = 9393815869) IMM GRAN x10^3 (test <0.03 0-0.06 code = 6971300009) LYMPH x10^3 (test code 1.07 10*3/uL 1.09-3.23 L = 731-0) MONO x10^3 (test code 0.50 10*3/uL 0.36-1.02 = 742-7) EOS x10^3 (test code = 0.17 10*3/uL 0.06-0.53 711-2) BASO x10^3 (test code <0.03 0.01-0.09 = 704-7) Lab Interpretation Abnormal (test code = 78617-3) [facility] METABOLIC PANEL (NA, K, CL, CO2, GLUCOSE, BUN, CREATININE, CA)2020-05-30 09:04:00 Test Item Value Reference Range Interpretation Comments NA (test code = 138 mmol/L 135-145 3069882079) K (test code = 4.4 mmol/L 3.5-5 1652030621) CL (test code = 99 mmol/L 98-108 0001861056) CO2 TOTAL (test code = 33 mmol/L 23-31 H 5597936627) AGAP (test code = 2-16 0100918049) BUN (test code = 18 mg/dL 7-23 4295393848) GLUCOSE (test code = 86 mg/dL 70-110 8292944569) CREATININE (test code = 0.61 mg/dL 0.6-1.25 1819588629) CALCIUM (test code = 8.1 mg/dL 8.6-10.6 L 5267070587) eGFR Calculation mL/min/1.73m2 (Non-) (test code = 0297154299) eGFR Calculation mL/min/1.73m2 () (test code = 4953423753) GILBERTO (test code = GILBERTO) Association of [...] tests). Lab Interpretation Abnormal (test code = 55801-9) [facility]MAGN[facility]IUM2020-10-07 09:04:00 Test Item Value Reference Range Interpretation Comments MAGNESIUM (test code = 4973779591) 2.0 mg/dL 1.7-2.4 Lab Interpretation (test code = Normal 51151-2) [facility] CampusPHOSPHORUS2020-10-07 09:04:00 Test Item Value Reference Range Interpretation Comments PHOSPHORUS (test code = 9929614831) 4.6 mg/dL 2.5-5 Lab Interpretation (test code = Normal 33285-1) [facility] CampusBASIC METABOLIC PANEL (NA, K, CL, CO2, GLUCOSE, BUN, CREATININE, CA)2020-05-29 07:31:00 Test Item Value Reference Range Interpretation Comments NA (test code = 135 mmol/L 135-145 7008868476) K (test code = 4.0 mmol/L 3.5-5 9195192334) CL (test code = 100 mmol/L 98-108 1336285224) CO2 TOTAL (test code = 32 mmol/L 23-31 H 6844889860) AGAP (test code = 2-16 9472798818) BUN (test code = 19 mg/dL 7-23 2896134151) GLUCOSE (test code = 86 mg/dL 70-110 7714408023) CREATININE (test code = 0.68 mg/dL 0.6-1.25 2957220136) CALCIUM (test code = 8.0 mg/dL 8.6-10.6 L 2433908909) eGFR Calculation mL/min/1.73m2 (Non-) (test code = 1954287538) eGFR Calculation mL/min/1.73m2 () (test code = 8878495367) GILBERTO (test code = GILBERTO) Association of [...] tests). Lab Interpretation Abnormal (test code = 21246-3) [facility] Test Item Value Reference Range Interpretation Comments MAGNESIUM (test code = 0730103942) 1.6 mg/dL 1.7-2.4 L Lab Interpretation (test code = Abnormal 19808-1) [facility]PHOSPHORUS2020-10-06 07:31:00 Test Item Value Reference Range Interpretation Comments PHOSPHORUS (test code = 4127193859) 3.5 mg/dL 2.5-5 Lab Interpretation (test code = Normal 80423-5) [facility] CampusASPIRATE OR ABSCESS CULTURE(AEROBIC/ANAEROBIC) 2020-05-28 12:35:00 Test Item Value Reference Range Interpretation Comments Aspirate or Abscess No aerobic/anaerobic Culture (test code = organisms isolated 18901-3) Gram stain (test code Occasional (Rare) = 664-3) Mononuclear cells [facility] CampusBASI METABOLIC PANEL (NA, K, CL, CO2, GLUCOSE, BUN, CREATININE, CA)2020-05-28 09:36:00 Test Item Value Reference Range Interpretation Comments NA (test code = 136 mmol/L 135-145 4016475231) K (test code = 4.3 mmol/L 3.5-5 7133225089) CL (test code = 102 mmol/L 98-108 4757592723) CO2 TOTAL (test code = 31 mmol/L 23-31 7400622159) AGAP (test code = 2-16 5341628059) BUN (test code = 25 mg/dL 7-23 H 9662283401) GLUCOSE (test code = 87 mg/dL 70-110 8958146773) CREATININE (test code = 0.65 mg/dL 0.6-1.25 9208026753) CALCIUM (test code = 8.2 mg/dL 8.6-10.6 L 3994293923) eGFR Calculation mL/min/1.73m2 (Non-) (test code = 2187063379) eGFR Calculation mL/min/1.73m2 () (test code = 3233681783) GILBERTO (test code = GILBERTO) Association of [...] tests). Lab Interpretation Abnormal (test code = 30707-3) [facility]MAG[facility]IUM2020-10-05 09:36:00 Test Item Value Reference Range Interpretation Comments MAGNESIUM (test code = 5490101578) 1.6 mg/dL 1.7-2.4 L Lab Interpretation (test code = Abnormal 01151-8) [facility]PHOSPHORUS2020-10-05 09:36:00 Test Item Value Reference Range Interpretation Comments PHOSPHORUS (test code = 6779278658) 2.6 mg/dL 2.5-5 Lab Interpretation (test code = Normal 57405-6) [facility]BAS[facility] METABOLIC PANEL (NA, K, CL, CO2, GLUCOSE, BUN, CREATININE, CA)2020-05-27 10:13:00 Test Item Value Reference Range Interpretation Comments NA (test code = 135 mmol/L 135-145 2817518279) K (test code = 3.9 mmol/L 3.5-5 7028435983) CL (test code = 103 mmol/L 98-108 4197463704) CO2 TOTAL (test code = 28 mmol/L 23-31 4230580757) AGAP (test code = 2-16 9947436341) BUN (test code = 20 mg/dL 7-23 0521808516) GLUCOSE (test code = 95 mg/dL 70-110 2846378084) CREATININE (test code = 0.67 mg/dL 0.6-1.25 4003705393) CALCIUM (test code = 8.2 mg/dL 8.6-10.6 L 2327962481) eGFR Calculation mL/min/1.73m2 (Non-) (test code = 9896526343) eGFR Calculation mL/min/1.73m2 () (test code = 6926352802) GILBERTO (test code = GILBERTO) Association of [...] tests). Lab Interpretation Abnormal (test code = 03177-8) [facility]MAG[facility]UM2020-10-04 10:13:00 Test Item Value Reference Range Interpretation Comments MAGNESIUM (test code = 2995282620) 1.5 mg/dL 1.7-2.4 L Lab Interpretation (test code = Abnormal 96571-4) [facility]PH[facility]2020-10-04 10:13:00 Test Item Value Reference Range Interpretation Comments PHOSPHORUS (test code = 6199122890) 3.4 mg/dL 2.5-5 Lab Interpretation (test code = Normal 66200-0) [facility] CampusIR CHANGE OF ABSCESS [id number] 17:06:27 Successful removal of the left upper quadrant drainage catheter. Replacement of the right upper quadrant catheter into the most superiorsegment of the collection with a new 10 Palauan pigtail catheter.PLAN: This tube should be flushed with 10 of saline twice a day. ?We willcontinue to monitor the output of the catheter while the patient isin-house. If the patient is discharged prior to catheter removal, follow-upwith VIR is recommended in 7-10 ?days. This can be arranged by [id number]. Preliminary Report Dictated by Resident: Johnny Tilley [...] actually performing theprocedure. Please see [facility] for sedation time. RADIATION DOSE: 33.0 mGy. TECHNIQUE: The risks, benefits and alternativeswere discussed and informed consentwas obtained. Prior to beginning the procedure, York Protocol was usedto confirm the patient's identity [...] of the pigtailcatheters within the respective collections. [facility], Radiant Results Inft User - 05/26/2020 12:07 [...] actually performing theprocedure. Please see [facility] for sedation time.RADIATION DOSE: 33.0 mGy.TECHNIQUE: The risks, benefits andalternatives were discussed and informed consentwas obtained. Prior to beginning the procedure, York Protocol was usedto confirm the patient's identity [...] of the collection with a new 10 Palauan pigtail catheter.PLAN: This tube should be flushed with 10 of saline twice a day. We willcontinue to monitor the output of the catheter while the patient isin-house. If the patient is discharged prior to catheter removal, follow-upwith VIR is recommended in 7-10 days. This can be arranged by [id number].Preliminary Report Dictated by Resident: Johnny Benitez, as teaching physician, was present during the entire procedure and/orduring the botello components.Nixon Damon MD., have reviewed this study and agree with theabove report.[facility] CampusIR ASPIRATION ABSCESS BULLA OR CYST BY [id number] 17:06:16 Successful ultrasound-guided aspiration of intrahepatic small [...] consentwas obtained. Prior to beginning the procedure, York Protocol was usedto confirm the patient's identity and planned procedure. Maximum sterilebarriers including cap, mask, hand hygiene, sterile gloves, sterile gown,large sterile drape and cutaneous antisepsis were used. The skin overlying the right mid abdomen was sterilely prepped, draped andinfiltrated with 1percent lidocaine. The targeted infrahepatic small collection was then accessed with [id number] micropuncture needle using imaging guidance which includedultrasound. [...] consentwas obtained. Prior to beginning the procedure, York Protocol was usedto confirm the patient's identity and planned procedure. Maximum sterilebarriers including cap, mask, hand hygiene, sterile gloves, sterile gown,large sterile drape and cutaneous antisepsis were used. The skin overlying the right mid abdomen was sterilely prepped, draped andinfiltrated with 1 percent lidocaine. The targeted infrahepatic small collection was then accessed with [id number] micropuncture needle using imaging guidance which includ [...] sent for culture.Preliminary Report Dictated by Resident: Turner MoshksarI, as teaching physician, was present during the entire procedure and/orduring the botello components.I, Nixon Prince MD., have reviewed this study and agree with theabove report.[facility] METABOLIC PANEL (NA, K, CL, CO2, GLUCOSE, BUN, CREATININE, CA) 2020-05-26 10:13:00 Test Item Value Reference Range Interpretation Comments NA (test code = 135 mmol/L 135-145 6460855525) K (test code = 4.4 mmol/L 3.5-5 8666553557) CL (test code = 107 mmol/L 98-108 3910876133) CO2 TOTAL (test code = 23 mmol/L 23-31 6859334258) AGAP (test code = 2-16 1112353380) BUN (test code = 18 mg/dL 7-23 0728762208) GLUCOSE (test code = 101 mg/dL 70-110 2106542793) CREATININE (test code = 0.61 mg/dL 0.6-1.25 4318314651) CALCIUM (test code = 8.1 mg/dL 8.6-10.6 L 8743991723) eGFR Calculation mL/min/1.73m2 (Non-) (test code = 5952810621) eGFR Calculation mL/min/1.73m2 () (test code = 2676348751) GILBERTO (test code = GILBERTO) Association of [...] tests). Lab Interpretation Abnormal (test code = 52703-9) [facility]MAG[facility]2020-10-03 10:13:00 Test Item Value Reference Range Interpretation Comments MAGNESIUM (test code = 1354402653) 1.7 mg/dL 1.7-2.4 Lab Interpretation (test code = Normal 99857-6) [facility]PH[facility]2020-10-03 10:13:00 Test Item Value Reference Range Interpretation Comments PHOSPHORUS (test code = 8908022845) 3.4 mg/dL 2.5-5 Lab Interpretation (test code = Normal 79211-4) [facility] CampusXR [id number] 23:20:33 Positioning dictated draining the right upper [...] and agree with theabove report.[facility] METABOLIC PANEL (NA, K, CL, CO2, GLUCOSE, BUN, CREATININE, CA)2020-05-25 22:49:00 Test Item Value Reference Range Interpretation Comments NA (test code = 136 mmol/L 135-145 8845351740) K (test code = 4.5 mmol/L 3.5-5 9419751866) CL (test code = 105 mmol/L 98-108 0781132115) CO2 TOTAL (test code = 22 mmol/L 23-31 L 3635944876) AGAP (test code = 2-16 8867853110) BUN (test code = 24 mg/dL 7-23 H 8013009434) GLUCOSE (test code = 101 mg/dL 70-110 9261656127) CREATININE (test code = 0.74 mg/dL 0.6-1.25 5798852180) CALCIUM (test code = 8.6 mg/dL 8.6-10.6 2287704540) eGFR Calculation mL/min/1.73m2 (Non-) (test code = 2437083670) eGFR Calculation mL/min/1.73m2 () (test code = 7085955035) GILBERTO (test code = GILBERTO) Association of [...] tests). Lab Interpretation Abnormal (test code = 79260-1) [facility]MAG[facility]2020-10-02 22:11:00 Test Item Value Reference Range Interpretation Comments MAGNESIUM (test code = 9174079289) 2.0 mg/dL 1.7-2.4 Lab Interpretation (test code = Normal 14776-6) [facility]PHOS[facility]US2020-10-02 22:11:00 Test Item Value Reference Range Interpretation Comments PHOSPHORUS (test code = 1713173024) 3.1 mg/dL 2.5-5 Lab Interpretation (test code = Normal 55339-1) [facility] CampusCB WITH [id number] 21:51:00 Test Item Value Reference Range Interpretation Comments WBC (test code = See_Comment [Automated 6171-2) message] The sy stem which generated this result transmitted reference range : 4.20 - 10.70 10*3/?L. The reference range was not used to interpret this result as normal/abnormal . RBC (test code = See_Comment [Automated 365-8) message] The sy stem which generated this [...] (test code = 53.1 fL 38.5-51.6 H 14428-8) RDW-CV (test code = 17.9 % 12.1-15.4 H 788-0) PLT (test code = See_Comment [Automated 777-3) message] The sy stem which generated this result transmitted reference range : 150 - 328 10*3/ ?L. The reference r meredith was not used to interpret this result as normal/abnormal . MPV (test code = 9.1 fL 9.8-13 L 10524-1) NRBC/100 WBC (test See_Comment [Automat ed code = 3761055573) message] The system which generated this result transmitted reference range : 0.0 - 10.0 /100 WBCs. The refer ence range was not u sed to interpret th is result as normal/abnormal . NRBC x10^3 (test code <0.01 See_Comment [Auto mated = 7305734830) message] The s ystem which generated this result transmitted reference range : 10*3/?L. The reference range was not used to interpret this result as normal/abnormal . GRAN MAT (NEUT) % 73.4 % (test code = 770-8) IMM GRAN % (test code 0.50 % = 7764516274) LYMPH % (test code = 17.9 % 736-9) MONO % (test code = 5.2 % 5905-5) EOS % (test code = 2.5 % 713-8) BASO % (test code = 0.5 % 706-2) GRAN MAT x10^3(ANC) 4.05 10*3/uL 1.99-6.95 (test code = 0544282885) IMM GRAN x10^3 (test 0.03 10*3/uL 0-0.06 code = 1927713808) LYMPH x10^3 (test code 0.99 10*3/uL 1.09-3.23 L = 731-0) MONO x10^3 (test code 0.29 10*3/uL 0.36-1.02 L = 742-7) EOS x10^3 (test code = 0.14 10*3/uL 0.06-0.53 711-2) BASO x10^3 (test code 0.03 10*3/uL 0.01-0.09 = 704-7) Lab Interpretation Abnormal (test code = 84239-6) [facility] METABOLIC PANEL (NA, K, CL, CO2, GLUCOSE, BUN, CREATININE, CA)2020-05-25 09:24:00 Test Item Value Reference Range Interpretation Comments NA (test code = 135 mmol/L 135-145 4075888760) K (test code = 5.3 mmol/L 3.5-5 H Slight 1071495671) hemolysis CL (test code = 104 mmol/L 98-108 1545274120) CO2 TOTAL (test code 24 mmol/L 23-31 = 2947455070) AGAP (test code = 2-16 9287907431) BUN (test code = 22 mg/dL 7-23 Slight 8075210050) hemolysis GLUCOSE (test code = 96 mg/dL 70-110 6824093222) CREATININE (test code 0.73 mg/dL 0.6-1.25 = 2715605169) CALCIUM (test code = 8.2 mg/dL 8.6-10.6 L 9994759448) eGFR Calculation mL/min/1.73m2 (Non-) (test code = 6920297845) eGFR Calculation mL/min/1.73m2 () (test code = 7840054568) GILBERTO (test code = GILBERTO) Association of [...] tests). Lab Interpretation Abnormal (test code = 03598-4) [facility]2020-10-02 09:24:00 Test Item Value Reference Range Interpretation Comments MAGNESIUM (test code = 3351315711) 2.3 mg/dL 1.7-2.4 Lab Interpretation (test code = Normal 37964-8) [facility]PHOS[facility]2020-10-02 09:24:00 Test Item Value Reference Range Interpretation Comments PHOSPHORUS (test code = 5106939574) 3.4 mg/dL 2.5-5 Lab Interpretation (test code = Normal 60299-2) [facility]BAS[facility] MET[facility]OLIC PANEL (NA, K, CL, CO2, GLUCOSE, BUN, CREATININE, CA)2020-05-24 21:00:00 Test Item Value Reference Range Interpretation Comments NA (test code = 135 mmol/L 135-145 8374766272) K (test code = 4.3 mmol/L 3.5-5 6880861936) CL (test code = 102 mmol/L 98-108 4207932450) CO2 TOTAL (test code = 25 mmol/L 23-31 1507609448) AGAP (test code = 2-16 5660490908) BUN (test code = 20 mg/dL 7-23 3454726514) GLUCOSE (test code = 102 mg/dL 70-110 9328969672) CREATININE (test code 0.97 mg/dL 0.6-1.25 = 2200133342) CALCIUM (test code = 9.0 mg/dL 8.6-10.6 8115867217) eGFR Calculation mL/min/1.73m2 (Non-) (test code = 4020963967) eGFR Calculation mL/min/1.73m2 () (test code = 7683049954) GILBERTO (test code = GILBERTO) Association of [...] Range Interpretation Comments MAGNESIUM (test code = 7370211968) 1.5 mg/dL 1.7-2.4 L Lab Interpretation (test code = Abnormal 57090-9) [facility]PH[facility]2020-10-01 20:58:00 Test Item Value Reference Range Interpretation Comments PHOSPHORUS (test code = 8095548361) 3.3 mg/dL 2.5-5 Lab Interpretation (test code = Normal 45060-1) [facility] CampusCBC with Xztcmwsuuxgg0360-66-06 11:31:00 Test Item Value Reference Range Interpretation [...] (test code = 51.9 fL 38.5-51.6 H 14915-0) RDW-CV (test code = 17.6 % 12.1-15.4 H 788-0) PLT (test code = See_Comment H [Automated 777-3) message] The sy stem which generated this result transmitted reference range : 150 - 328 10*3/ ?L. The reference r meredith was not used to interpret this result as normal/abnormal . MPV (test code = 9.0 fL 9.8-13 L 02903-9) NRBC/100 WBC (test See_Comment [Automat ed code = 5965276295) message] The system which generated this result transmitted reference range : 0.0 - 10.0 /100 WBCs. The refer ence range was not u sed to interpret th is result as normal/abnormal . NRBC x10^3 (test code <0.01 See_Comment [Auto mated = 0941900553) message] The s ystem which generated this result transmitted reference range : 10*3/?L. The reference range was not used to interpret this result as normal/abnormal . GRAN MAT (NEUT) % 66.0 % (test code = 770-8) IMM GRAN % (test code 0.20 % = 3806599359) LYMPH % (test code = 20.3 % 736-9) MONO % (test code = 10.4 % 5905-5) EOS % (test code = 2.6 % 713-8) BASO % (test code = 0.5 % 706-2) GRAN MAT x10^3(ANC) 4.33 10*3/uL 1.99-6.95 (test code = 6140457807) IMM GRAN x10^3 (test <0.03 0-0.06 code = 0788134725) LYMPH x10^3 (test code 1.33 10*3/uL 1.09-3.23 = 731-0) MONO x10^3 (test code 0.68 10*3/uL 0.36-1.02 = 742-7) EOS x10^3 (test code = 0.17 10*3/uL 0.06-0.53 711-2) BASO x10^3 (test code 0.03 10*3/uL 0.01-0.09 = 704-7) Lab Interpretation Abnormal (test code = 70247-8) [facility] CampusCT ABDOMEN PELVIS W [id number] 17:39:05 Since 05/19/2020 slight increase in size [...] perihepatic are unchanged with drains insitu as above.[facility] (NA, K, CL, CO2, Glucose, BUN, Creatinine, CA)2020-05-23 10:25:00 Test Item Value Reference Range Interpretation Comments NA (test code = 135 mmol/L 135-145 7621160291) K (test code = 3.7 mmol/L 3.5-5 8215224087) CL (test code = 105 mmol/L 98-108 7912547832) CO2 TOTAL (test code = 24 mmol/L 23-31 8228388680) AGAP (test code = 2-16 1701199807) BUN (test code = 19 mg/dL 7-23 1714072771) GLUCOSE (test code = 117 mg/dL 70-110 H 9914291863) CREATININE (test code = 0.74 mg/dL 0.6-1.25 5578983010) CALCIUM (test code = 7.3 mg/dL 8.6-10.6 L 5792262275) eGFR Calculation mL/min/1.73m2 (Non-) (test code = 0249656197) eGFR Calculation mL/min/1.73m2 () (test code = 1938242541) GILBERTO (test code = GILBERTO) Association of [...] tests). Lab Interpretation Abnormal (test code = 22295-0) [facility] [id number] 07:40:00 Test Item Value Reference Range Interpretation Comments SARS-CoV-2 Rapid ID NOW Not Detected Not Detected (test code = 03439-6) GILBERTO (test code = GILBERTO) ID NOW COVID-19 Assay is an isothermal nucleic acid amplification test intended for the qualitative detection of nucleic acid from SARS-CoV-2 viral RNA in nasopharyngeal (INFORMATICS SPEC) specimens. It is used under Emergency Use [...] indicated. Lab Interpretation Normal (test code = 69951-3) [facility] CampusUrinalysis2020-09-29 22:41:00 Test Item Value Reference Range Interpretation Comments APPEARANCE (test code = Hazy Clear A 7074199787) COLOR (test code = Yellow Yellow 8493167937) PH (test code = 4.8-8.0 3592884280) SP GRAVITY (test code = 1.003-1.030 1306142630) GLU U QUAL (test code = Normal Normal 3959322899) BLOOD (test code = Negative Negative 0052339842) KETONES (test code = Negative Negative 3799714026) PROTEIN (test code = 30 mg/dL Negative A 2887-8) UROBILIN (test code = Normal Normal 6208675039) BILIRUBIN (test code = Negative Negative 5269517314) NITRITE (test code = Negative Negative 3548884140) LEUK ROGER (test code = Negative Negative 9371355974) RBC/HPF (test code = See_Comment H [Autom ated message] 0321847328) The system The Dodo generated this result transmitted ref erence range: 0 - 3 HP F. The reference range was not used to int erpret this result as normal/abnormal . WBC/HPF (test code = See_Comment H [Autom ated message] 0075569610) The system The Dodo generated this result transmitted ref erence range: 0 - 5 HP F. The reference range was not used to int erpret this result as normal/abnormal . BACTERIA (test code = Negative Negative 3654790099) MUCOUS (test code = Moderate Negative LPF A 2480386179) SQ EPITH (test code = See_Comment [Auto mated message] 7558527748) The system The Dodo generated this result transmitted ref erence range: <=2 HPF. The reference range was not used to int erpret this result as normal/abnormal . CA OXALATE (test code = See_Comment H [Au tomated message] 7549516805) The system The Dodo generated this result transmitted ref erence range: <=1 HPF. The reference range was not used to int erpret this result as normal/abnormal . HYAL CAST (test code = See_Comment H [Aut omated message] 9292453425) The system The Dodo generated this result transmitted ref erence range: <=2 LPF. The reference range was not used to int erpret this result as normal/abnormal . Lab Interpretation (test Abnormal code = 19583-5) [facility] Metabolic Panel (NA, K, CL, CO2, GLUCOSE, BUN, CREATININE, CA)2020-05-22 21:46:00 Test Item Value Reference Range Interpretation Comments NA (test code = 134 mmol/L 135-145 L 8428674687) K (test code = 5.0 mmol/L 3.5-5 1236821516) CL (test code = 103 mmol/L 98-108 2995219469) CO2 TOTAL (test code = 25 mmol/L 23-31 0797617741) AGAP (test code = 2-16 5331194343) BUN (test code = 24 mg/dL 7-23 H 4385487279) GLUCOSE (test code = 102 mg/dL 70-110 1866688313) CREATININE (test code = 0.87 mg/dL 0.6-1.25 6143703419) CALCIUM (test code = 9.2 mg/dL 8.6-10.6 5640559258) eGFR Calculation mL/min/1.73m2 (Non-) (test code = 1600453485) eGFR Calculation mL/min/1.73m2 () (test code = 5087515706) GILBERTO (test code = GILBERTO) Association of [...] tests). Lab Interpretation Abnormal (test code = 39476-7) [facility] CampusHepatic Function Panel (ALB, T.PRO, BILI T, BU/BC, ALT, AST, ALK PHOS)2020-05-22 21:46:00 Test Item Value Reference Range Interpretation Comments TOTAL BILI (test code = 9138111906) 0.4 mg/dL 0.1-1.1 BILI UNCON (test code = 7661458388) 0.2 mg/dL 0.1-1.1 BILI CONJ (test code = 4433260616) 0.0 mg/dL 0-0.3 T PROTEIN (test code = 8170010145) 6.5 g/dL 6.3-8.2 ALBUMIN (test code = 1578892274) 3.6 g/dL 3.5-5 ALK PHOS (test code = 0931274048) 96 U/L 34-122 ALTv (test code = 1742-6) 22 U/L 5-50 AST(SGOT) (test code = 4074418554) 28 U/L 13-40 Lab Interpretation (test code = Normal 11424-6) [facility] CampusLipase [id number] 21:46:00 Test Item Value Reference Range Interpretation Comments LIPASE (test code = 5710141022) 95 U/L 0-220 Lab Interpretation (test code = Normal 57168-2) [facility] CampusaPTT2020-09-29 21:46:00 Test Item Value Reference Range Interpretation Comments APTT Patient (test code = See_Comment [ Automated message] 3173-2) The system whic h generated this result transmitted ref erence range: 26 - 36 Seconds. The re ference range was not u sed to interpret this result as normal/abnor mal. Lab Interpretation (test Normal code = 03510-4) [facility] CampusProthrombin Time (PT) / [id number] 21:46:00 Test Item Value Reference Range Interpretation [...] tions. Lab Interpretation (test Abnormal code = 39405-1) [facility] CampusCBC with Pthcfbrpphqc7734-00-99 21:41:00 Test Item Value Reference Range Interpretation Comments WBC (test code = See_Comment [Automated 4390-2) message] The sy stem which [...] (test code = 53.0 fL 38.5-51.6 H 48752-1) RDW-CV (test code = 17.6 % 12.1-15.4 H 788-0) PLT (test code = See_Comment H [Automated 777-3) message] The sy stem which generated this result transmitted reference range : 150 - 328 10*3/ ?L. The reference r meredith was not used to interpret this result as normal/abnormal . MPV (test code = 9.1 fL 9.8-13 L 42846-7) NRBC/100 WBC (test See_Comment [Automat ed code = 9132103889) message] The system which generated this result transmitted reference range : 0.0 - 10.0 /100 WBCs. The refer ence range was not u sed to interpret th is result as normal/abnormal . NRBC x10^3 (test code <0.01 See_Comment [Auto mated = 2491034106) message] The s ystem which generated this result transmitted reference range : 10*3/?L. The reference range was not used to interpret this result as normal/abnormal . GRAN MAT (NEUT) % 77.4 % (test code = 770-8) IMM GRAN % (test code 0.50 % = 2009120670) LYMPH % (test code = 15.8 % 736-9) MONO % (test code = 4.9 % 5905-5) EOS % (test code = 0.8 % 713-8) BASO % (test code = 0.6 % 706-2) GRAN MAT x10^3(ANC) 5.04 10*3/uL 1.99-6.95 (test code = 4586822099) IMM GRAN x10^3 (test 0.03 10*3/uL 0-0.06 code = 3430358281) LYMPH x10^3 (test code 1.03 10*3/uL 1.09-3.23 L = 731-0) MONO x10^3 (test code 0.32 10*3/uL 0.36-1.02 L = 742-7) EOS x10^3 (test code = 0.05 10*3/uL 0.06-0.53 L 711-2) BASO x10^3 (test code 0.04 10*3/uL 0.01-0.09 = 704-7) Lab Interpretation Abnormal (test code = 75917-4) [facility] 1 [id number] 21:19:32CHEST ONE VIEW HISTORY: ?Weakness TECHNIQUE: ?AP [...] Not Detected Not Detected (test code = 95051-2) GILBERTO (test code = GILBERTO) ID NOW COVID-19 Assay is an isothermal nucleic acid amplification test intended for the qualitative detection of nucleic acid from SARS-CoV-2 viral RNA in nasopharyngeal (INFORMATICS SPEC) specimens. It is used under Emergency Use [...] indicated. Lab Interpretation Normal (test code = 02053-6) [facility] CampusURINALYSIS2020-09-27 10:07:00 Test Item Value Reference Range Interpretation Comments APPEARANCE (test code = Clear Clear 5621539226) COLOR (test code = Yellow Yellow 4025729630) PH (test code = 4.8-8.0 7156684677) SP GRAVITY (test code = 1.003-1.030 H 1456110827) GLU U QUAL (test code = Normal Normal 6541065983) BLOOD (test code = Negative Negative 1946334286) KETONES (test code = Negative Negative 8563145278) PROTEIN (test code = Negative Negative 2887-8) UROBILIN (test code = Normal Normal 6715157552) BILIRUBIN (test code = Negative Negative 2449664177) NITRITE (test code = Negative Negative 6014272138) LEUK ROGER (test code = Negative Negative 6798210129) RBC/HPF (test code = See_Comment [Autom ated message] 8863399388) The system The Dodo generated this result transmitted ref erence range: 0 - 3 HP F. The reference range was not used to int erpret this result as normal/abnormal . WBC/HPF (test code = See_Comment [Autom ated message] 1265061469) The system The Dodo generated this result transmitted ref erence range: 0 - 5 HP F. The reference range was not used to int erpret this result as normal/abnormal . BACTERIA (test code = Negative Negative 6168219560) MUCOUS (test code = Slight Negative LPF A 7585950268) SQ EPITH (test code = See_Comment [Auto mated message] 4481609711) The system The Dodo generated this result transmitted ref erence range: <=2 HPF. The reference range was not used to int erpret this result as normal/abnormal . HYAL CAST (test code = See_Comment H [Aut omated message] 6248790624) The system The Dodo generated this result transmitted ref erence range: <=2 LPF. The reference range was not used to int erpret this result as normal/abnormal . Lab Interpretation (test Abnormal code = 96201-1) [facility] CampusCT ABDOMEN PELVIS W [id number] 04:28:40Impression: 1. Multiple rim-enhancing fluid and gas [...] effusions, possiblyloculated on the left. RL: 2824AFC: 59552 End of Report Exam: CT Abdomen and [...] pleural effusions, possiblyloculated on the left.RL: 2824AFC: 55703Gez of Report [facility]TIM[facility] [id number] 03:44:00 Test Item Value Reference Range Interpretation Comments TROPONIN I (test 0.001 ng/mL See_Comment [Automated code = 4737792819) message] The system which generated this result [...] ? Lab Interpretation Normal (test code = 95333-1) [facility] CampusCOMP. METABOLIC PANEL (14535)2020-05-20 03:33:00 Test Item Value Reference Range Interpretation Comments NA (test code = 138 mmol/L 135-145 3806050189) K (test code = 5.3 mmol/L 3.5-5 H 2808804082) CL (test code = 100 mmol/L 98-108 4001768368) CO2 TOTAL (test code = 28 mmol/L 23-31 1293026384) AGAP (test code = 2-16 7716262545) BUN (test code = 27 mg/dL 7-23 H 4639481406) GLUCOSE (test code = 90 mg/dL 70-110 8096647259) CREATININE (test code = 1.25 mg/dL 0.6-1.25 1813796681) TOTAL BILI (test code = 0.2 mg/dL 0.1-1.6 2644554916) CALCIUM (test code = 9.9 mg/dL 8.6-10.6 0349765721) T PROTEIN (test code = 6.8 g/dL 6.3-8.2 1641648455) ALBUMIN (test code = 3.7 g/dL 3.5-5 7520844650) ALK PHOS (test code = 122 U/L 34-122 7633859991) ALTv (test code = 26 U/L 5-50 1742-6) AST(SGOT) (test code = 24 U/L 13-40 4525000144) eGFR Calculation mL/min/1.73m2 (Non-) (test code = 8919889289) eGFR Calculation mL/min/1.73m2 () (test code = 5285650825) GILBERTO (test code = GILBERTO) Association of [...] tests). Lab Interpretation Abnormal (test code = 19543-5) [facility] CampusLIPASE2020-09-27 03:33:00 Test Item Value Reference Range Interpretation Comments LIPASE (test code = 9244619976) 223 U/L 0-220 H Lab Interpretation (test code = Abnormal 73065-3) [facility] CampusMAGNESIUM2020-09-27 03:33:00 Test Item Value Reference Range Interpretation Comments MAGNESIUM (test code = 4902188740) 1.7 mg/dL 1.7-2.4 Lab Interpretation (test code = Normal 52428-6) [facility] WITH [id number] 03:17:00 Test Item Value Reference Range Interpretation [...] RDW-SD (test code = 49.9 fL 38.5-51.6 41782-1) RDW-CV (test code = 17.2 % 12.1-15.4 H 788-0) PLT (test code = See_Comment H [Automated 777-3) message] The sy stem which generated this result transmitted reference range : 150 - 328 10*3/ ?L. The reference r meredith was not used to interpret this result as normal/abnormal . MPV (test code = 9.3 fL 9.8-13 L 55056-6) NRBC/100 WBC (test See_Comment [Automat ed code = 9465565123) message] The system which generated this result transmitted reference range : 0.0 - 10.0 /100 WBCs. The refer ence range was not u sed to interpret th is result as normal/abnormal . NRBC x10^3 (test code <0.01 See_Comment [Auto mated = 3362099300) message] The s ystem which generated this result transmitted reference range : 10*3/?L. The reference range was not used to interpret this result as normal/abnormal . GRAN MAT (NEUT) % 78.5 % (test code = 770-8) IMM GRAN % (test code 0.50 % = 0861688765) LYMPH % (test code = 11.6 % 736-9) MONO % (test code = 8.4 % 5905-5) EOS % (test code = 0.6 % 713-8) BASO % (test code = 0.4 % 706-2) GRAN MAT x10^3(ANC) 6.16 10*3/uL 1.99-6.95 (test code = 8886685003) IMM GRAN x10^3 (test 0.04 10*3/uL 0-0.06 code = 5946573041) LYMPH x10^3 (test code 0.91 10*3/uL 1.09-3.23 L = 731-0) MONO x10^3 (test code 0.66 10*3/uL 0.36-1.02 = 742-7) EOS x10^3 (test code = 0.05 10*3/uL 0.06-0.53 L 711-2) BASO x10^3 (test code 0.03 10*3/uL 0.01-0.09 = 704-7) Lab Interpretation Abnormal (test code = 71963-8) [facility] (test code = 132 mmol/L 135-145 L 4192640495) K (test code = 4.0 mmol/L 3.5-5 0980919022) CL (test code = 97 mmol/L 98-108 L 4595576143) CO2 TOTAL (test code = 28 mmol/L 23-31 1970121037) AGAP (test code = 2-16 2800852233) BUN (test code = 12 mg/dL 7-23 1343078292) GLUCOSE (test code = 128 mg/dL 70-110 H 3342570436) CREATININE (test code = 0.63 mg/dL 0.6-1.25 6792091632) CALCIUM (test code = 8.7 mg/dL 8.6-10.6 2393313534) eGFR Calculation mL/min/1.73m2 (Non-) (test code = 6122594351) eGFR Calculation mL/min/1.73m2 () (test code = 9956423301) GILBERTO (test code = GILBERTO) Association of [...] tests). Lab Interpretation Abnormal (test code = 77225-5) [facility] CampusMagnesium [id number] 10:27:00 Test Item Value Reference Range Interpretation Comments MAGNESIUM (test code = 6927950592) 1.7 mg/dL 1.7-2.4 Lab Interpretation (test code = Normal 71684-4) [facility] CampusPhosphorus [id number] 10:27:00 Test Item Value Reference Range Interpretation Comments PHOSPHORUS (test code = 3157589660) 3.4 mg/dL 2.5-5 Lab Interpretation (test code = Normal 76589-4) [facility] CampusCBC with Vyoqurpbzxoc5164-97-31 10:03:00 Test Item Value Reference Range Interpretation [...] RDW-SD (test code = 47.3 fL 38.5-51.6 81547-1) RDW-CV (test code = 15.7 % 12.1-15.4 H 788-0) PLT (test code = See_Comment H [Automated 777-3) message] The sy stem which generated this result transmitted reference range : 150 - 328 10*3/ ?L. The reference r meredith was not used to interpret this result as normal/abnormal . MPV (test code = 8.9 fL 9.8-13 L 16733-3) NRBC/100 WBC (test See_Comment [Automat ed code = 5818866504) message] The system which generated this result transmitted reference range : 0.0 - 10.0 /100 WBCs. The refer ence range was not u sed to interpret th is result as normal/abnormal . NRBC x10^3 (test code <0.01 See_Comment [Auto mated = 7738302912) message] The s ystem which generated this result transmitted reference range : 10*3/?L. The reference range was not used to interpret this result as normal/abnormal . GRAN MAT (NEUT) % 80.0 % (test code = 770-8) IMM GRAN % (test code 0.50 % = 4449609587) LYMPH % (test code = 11.8 % 736-9) MONO % (test code = 6.6 % 5905-5) EOS % (test code = 0.8 % 713-8) BASO % (test code = 0.3 % 706-2) GRAN MAT x10^3(ANC) 6.98 10*3/uL 1.99-6.95 H (test code = 7138963239) IMM GRAN x10^3 (test 0.04 10*3/uL 0-0.06 code = 8258636569) LYMPH x10^3 (test code 1.03 10*3/uL 1.09-3.23 L = 731-0) MONO x10^3 (test code 0.58 10*3/uL 0.36-1.02 = 742-7) EOS x10^3 (test code = 0.07 10*3/uL 0.06-0.53 711-2) BASO x10^3 (test code 0.03 10*3/uL 0.01-0.09 = 704-7) Lab Interpretation Abnormal (test code = 17927-6) [facility] Metabolic Panel (NA, K, CL, CO2, GLUCOSE, BUN, CREATININE, CA)2020-05-09 11:07:00 Test Item Value Reference Range Interpretation Comments NA (test code = 133 mmol/L 135-145 L 5838614041) K (test code = 4.4 mmol/L 3.5-5 2539622815) CL (test code = 100 mmol/L 98-108 3209042308) CO2 TOTAL (test code = 25 mmol/L 23-31 2824695121) AGAP (test code = 2-16 7406736400) BUN (test code = 14 mg/dL 7-23 8267557275) GLUCOSE (test code = 93 mg/dL 70-110 4324679101) CREATININE (test code = 0.66 mg/dL 0.6-1.25 5422666313) CALCIUM (test code = 8.3 mg/dL 8.6-10.6 L 9671287279) eGFR Calculation mL/min/1.73m2 (Non-) (test code = 2482100736) eGFR Calculation mL/min/1.73m2 () (test code = 8337468282) GILBERTO (test code = GILBERTO) Association of [...] tests). Lab Interpretation Abnormal (test code = 87586-2) [facility] CampusMagnesium Fjtwp6085-38-02 11:07:00 Test Item Value Reference Range Interpretation Comments MAGNESIUM (test code = 6532137910) 1.8 mg/dL 1.7-2.4 Lab Interpretation (test code = Normal 25141-0) [facility] CampusPhosphorus [id number] 11:07:00 Test Item Value Reference Range Interpretation Comments PHOSPHORUS (test code = 8930495484) 3.2 mg/dL 2.5-5 Lab Interpretation (test code = Normal 73646-5) [facility] CampusCBC with Fhdpybqfmtjh0978-56-11 10:42:00 Test Item Value Reference Range Interpretation [...] RDW-SD (test code = 45.9 fL 38.5-51.6 05582-6) RDW-CV (test code = 15.4 % 12.1-15.4 788-0) PLT (test code = See_Comment H [Automated 777-3) message] The sy stem which generated this result transmitted reference range : 150 - 328 10*3/ ?L. The reference r meredith was not used to interpret this result as normal/abnormal . MPV (test code = 8.9 fL 9.8-13 L 65775-5) NRBC/100 WBC (test See_Comment [Automat ed code = 6157102708) message] The system which generated this result transmitted reference range : 0.0 - 10.0 /100 WBCs. The refer ence range was not u sed to interpret th is result as normal/abnormal . NRBC x10^3 (test code <0.01 See_Comment [Auto mated = 4205776302) message] The s ystem which generated this result transmitted reference range : 10*3/?L. The reference range was not used to interpret this result as normal/abnormal . GRAN MAT (NEUT) % 77.7 % (test code = 770-8) IMM GRAN % (test code 0.50 % = 6496489818) LYMPH % (test code = 11.8 % 736-9) MONO % (test code = 8.4 % 5905-5) EOS % (test code = 1.4 % 713-8) BASO % (test code = 0.2 % 706-2) GRAN MAT x10^3(ANC) 6.48 10*3/uL 1.99-6.95 (test code = [id number]) IMM GRAN x10^3 (test 0.04 10*3/uL 0-0.06 code = [id number]) LYMPH x10^3 (test code 0.98 10*3/uL 1.09-3.23 L = 731-0) MONO x10^3 (test code 0.70 10*3/uL 0.36-1.02 = 742-7) EOS x10^3 (test code = 0.12 10*3/uL 0.06-0.53 711-2) BASO x10^3 (test code <0.03 0.01-0.09 = 704-7) Lab Interpretation Abnormal (test code = 00221-0) [facility] Metabolic Panel (NA, K, CL, CO2, GLUCOSE, BUN, CREATININE, CA)2020-05-08 12:18:00 Test Item Value Reference Range Interpretation Comments NA (test code = 136 mmol/L 135-145 [id number]) K (test code = 4.1 mmol/L 3.5-5 5179866504) CL (test code = 102 mmol/L 98-108 0029073487) CO2 TOTAL (test code = 26 mmol/L 23-31 0881330110) AGAP (test code = 2-16 8719156317) BUN (test code = 18 mg/dL 7-23 8068857792) GLUCOSE (test code = 99 mg/dL 70-110 9103848489) CREATININE (test code = 0.63 mg/dL 0.6-1.25 4147575529) CALCIUM (test code = 8.4 mg/dL 8.6-10.6 L 1173085864) eGFR Calculation mL/min/1.73m2 (Non-) (test code = 9425778658) eGFR Calculation mL/min/1.73m2 () (test code = 2538888443) GILBERTO (test code = GILBERTO) Association of [...] tests). Lab Interpretation Abnormal (test code = 05746-2) [facility] Ohxsv9065-61-68 12:18:00 Test Item Value Reference Range Interpretation Comments MAGNESIUM (test code = 7271430114) 1.8 mg/dL 1.7-2.4 Lab Interpretation (test code = Normal 42808-7) [facility]osph[facility] Tesuy4005-44-64 12:18:00 Test Item Value Reference Range Interpretation Comments PHOSPHORUS (test code = 8412465994) 3.2 mg/dL 2.5-5 Lab Interpretation (test code = Normal 10502-0) [facility] CampusCBC with Wtlmdsfksojy1067-99-94 11:50:00 Test Item Value Reference Range Interpretation [...] RDW-SD (test code = 46.9 fL 38.5-51.6 81380-5) RDW-CV (test code = 15.2 % 12.1-15.4 788-0) PLT (test code = See_Comment H [Automated 777-3) message] The sy stem which generated this result transmitted reference range : 150 - 328 10*3/ ?L. The reference r meredith was not used to interpret this result as normal/abnormal . MPV (test code = 9.0 fL 9.8-13 L 68020-7) NRBC/100 WBC (test See_Comment [Automat ed code = 2602507310) message] The system which generated this result transmitted reference range : 0.0 - 10.0 /100 WBCs. The refer ence range was not u sed to interpret th is result as normal/abnormal . NRBC x10^3 (test code <0.01 See_Comment [Auto mated = 7191902508) message] The s ystem which generated this result transmitted reference range : 10*3/?L. The reference range was not used to interpret this result as normal/abnormal . GRAN MAT (NEUT) % 76.3 % (test code = 770-8) IMM GRAN % (test code 0.70 % = 8525906226) LYMPH % (test code = 13.3 % 736-9) MONO % (test code = 8.4 % 5905-5) EOS % (test code = 1.1 % 713-8) BASO % (test code = 0.2 % 706-2) GRAN MAT x10^3(ANC) 6.93 10*3/uL 1.99-6.95 (test code = 6328787877) IMM GRAN x10^3 (test 0.06 10*3/uL 0-0.06 code = 2475149277) LYMPH x10^3 (test code 1.21 10*3/uL 1.09-3.23 = 731-0) MONO x10^3 (test code 0.76 10*3/uL 0.36-1.02 = 742-7) EOS x10^3 (test code = 0.10 10*3/uL 0.06-0.53 711-2) BASO x10^3 (test code <0.03 0.01-0.09 = 704-7) Lab Interpretation Abnormal (test code = 20413-4) [facility] CampusIR DRAINAGE BY CATHETER PERITONEAL OR [id number] 13:09:04 Technically successful drainage catheter placement in [...] from those actually performing theprocedure. Please see [facility] for total sedation time. TECHNIQUE: The [...] of the tract was performed. A 14 Palau[place] locking pigtail michael inagecatheter was placed in the collection and samples were sent for laboratoryanalysis. The left upper quadrant collection was identified under ultrasound and CTguidance. A 17-gauge coaxial needle wasadvanced into the collection. AnAmplatz wire was advanced into the collection over the needle and serialdilatation of the tract was performed. A 12 Palau[place] locking pigtail drainagecatheter was placed within the collection and samples were sent forlaboratory analysis. The right lower quadrant collectionwas identified under ultrasound and CTguidance. A 17-gauge coaxial needle was advanced into the colle ction.Serial dilatation was performed over the Amplatz wire. A 14 Palauan lockingpigtail drainage catheter was placed within the [...] was obtained. Prior to beginning the procedure, [place] Protocolwas performed to confirm the patient's identity [...] of the tract was performed. A 14 Palauan lockingpigtail drainagecatheter was placed in the collection and samples were sent for laboratoryanalysis.The left upper quadrant collection was identified under ultrasound and CTguidance. A 17-gauge coaxial needle was advanced into the collection. AnAmplatz wire was advanced into the collection over the needle and serialdilatation of the tract was performed. A 12 Palau[place] locking pigtail drainagecatheter wasplaced within the collection and samples were sent forlaboratory analysis.The right lower quadrant collection was identified under ultrasound and CTguidance. A 17-gauge coaxial needle was advanced intothe collection.Serial dilatation was performed over the Amplatz wire. A 14 Palauan lockingpigtail drainage catheter was placed within the [...] lower quadrant collections.Preliminary ReportDictated by Resident: Sukhjinder Nixon Gamble MD., have reviewed this study and agree withtheabove report.I, as teaching physician, was present during the entire procedure and/orduring the botello components.[facility] Metabolic Panel (NA, K, CL, CO2, GLUCOSE, BUN, CREATININE, CA) 2020-05-07 11:49:00 Test Item Value Reference Range Interpretation Comments NA (test code = 132 mmol/L 135-145 L 7146807715) K (test code = 4.0 mmol/L 3.5-5 8732194445) CL (test code = 101 mmol/L 98-108 5210858987) CO2 TOTAL (test code = 23 mmol/L 23-31 8982898907) AGAP (test code = 2-16 6517757161) BUN (test code = 21 mg/dL 7-23 6172679830) GLUCOSE (test code = 98 mg/dL 70-110 9899661113) CREATININE (test code = 0.65 mg/dL 0.6-1.25 7944967161) CALCIUM (test code = 8.4 mg/dL 8.6-10.6 L 1241806184) eGFR Calculation mL/min/1.73m2 (Non-) (test code = 0634364793) eGFR Calculation mL/min/1.73m2 () (test code = 2630533055) GILBERTO (test code = GILBERTO) Association of [...] tests). Lab Interpretation Abnormal (test code = 42482-1) [facility] CampusMagnesium Wpsaz8940-35-27 11:49:00 Test Item Value Reference Range Interpretation Comments MAGNESIUM (test code = 0496829268) 1.5 mg/dL 1.7-2.4 L Lab Interpretation (test code = Abnormal 30474-3) [facility] CampusPhosphorus Nratv0730-95-97 11:49:00 Test Item Value Reference Range Interpretation Comments PHOSPHORUS (test code = 9002380880) 2.7 mg/dL 2.5-5 Lab Interpretation (test code = Normal 79386-4) [facility] CampusCB with Dfrynhtjjhwq7360-95-29 11:31:00 Test Item Value Reference Range Interpretation [...] RDW-SD (test code = 47.2 fL 38.5-51.6 42764-3) RDW-CV (test code = 15.3 % 12.1-15.4 788-0) PLT (test code = See_Comment H [Automated 777-3) message] The sy stem which generated this result transmitted reference range : 150 - 328 10*3/ ?L. The reference r meredith was not used to interpret this result as normal/abnormal . MPV (test code = 9.4 fL 9.8-13 L 58175-3) NRBC/100 WBC (test See_Comment [Automat ed code = 0386998241) message] The system which generated this result transmitted reference range : 0.0 - 10.0 /100 WBCs. The refer ence range was not u sed to interpret th is result as normal/abnormal . NRBC x10^3 (test code <0.01 See_Comment [Auto mated = 0731439975) message] The s ystem which generated this result transmitted reference range : 10*3/?L. The reference range was not used to interpret this result as normal/abnormal . GRAN MAT (NEUT) % 81.1 % (test code = 770-8) IMM GRAN % (test code 0.80 % = 8084749573) LYMPH % (test code = 9.5 % 736-9) MONO % (test code = 7.8 % 5905-5) EOS % (test code = 0.6 % 713-8) BASO % (test code = 0.2 % 706-2) GRAN MAT x10^3(ANC) 8.26 10*3/uL 1.99-6.95 H (test code = 8330349785) IMM GRAN x10^3 (test 0.08 10*3/uL 0-0.06 H code = 9948710692) LYMPH x10^3 (test code 0.97 10*3/uL 1.09-3.23 L = 731-0) MONO x10^3 (test code 0.79 10*3/uL 0.36-1.02 = 742-7) EOS x10^3 (test code = 0.06 10*3/uL 0.06-0.53 711-2) BASO x10^3 (test code <0.03 0.01-0.09 = 704-7) Lab Interpretation Abnormal (test code = 90386-2) [facility] (NA, K, CL, CO2, GLUCOSE, BUN, CREATININE, CA)2020-05-06 15:02:00 Test Item Value Reference Range Interpretation Comments NA (test code = 134 mmol/L 135-145 L 9519613318) K (test code = 4.3 mmol/L 3.5-5 6548828187) CL (test code = 105 mmol/L 98-108 5696877114) CO2 TOTAL (test code = 23 mmol/L 23-31 8470944799) AGAP (test code = 2-16 3723899843) BUN (test code = 18 mg/dL 7-23 0261479692) GLUCOSE (test code = 96 mg/dL 70-110 2607984004) CREATININE (test code = 0.67 mg/dL 0.6-1.25 5650600676) CALCIUM (test code = 8.5 mg/dL 8.6-10.6 L 8558790887) eGFR Calculation mL/min/1.73m2 (Non-) (test code = 8944197131) eGFR Calculation mL/min/1.73m2 () (test code = 4639692000) GILBERTO (test code = GILBERTO) Association of [...] tests). Lab Interpretation Abnormal (test code = 25128-5) [facility] CampusMagnesium Dtfsa8980-36-71 15:02:00 Test Item Value Reference Range Interpretation Comments MAGNESIUM (test code = 4465547780) 1.8 mg/dL 1.7-2.4 Lab Interpretation (test code = Normal 42012-7) [facility] CampusPhosphorus Kzhdh6830-11-01 15:02:00 Test Item Value Reference Range Interpretation Comments PHOSPHORUS (test code = 2610455906) 3.2 mg/dL 2.5-5 Lab Interpretation (test code = Normal 93968-1) [facility] CampusCBC with Tzqbyqjaeikt0477-91-28 10:41:00 Test Item Value Reference Range Interpretation [...] RDW-SD (test code = 47.0 fL 38.5-51.6 51826-1) RDW-CV (test code = 15.2 % 12.1-15.4 788-0) PLT (test code = See_Comment H [Automated 777-3) message] The sy stem which generated this result transmitted reference range : 150 - 328 10*3/ ?L. The reference r meredith was not used to interpret this result as normal/abnormal . MPV (test code = 9.1 fL 9.8-13 L 05529-8) NRBC/100 WBC (test See_Comment [Automat ed code = 3382867996) message] The system which generated this result transmitted reference range : 0.0 - 10.0 /100 WBCs. The refer ence range was not u sed to interpret th is result as normal/abnormal . NRBC x10^3 (test code <0.01 See_Comment [Auto mated = 9337427085) message] The s ystem which generated this result transmitted reference range : 10*3/?L. The reference range was not used to interpret this result as normal/abnormal . GRAN MAT (NEUT) % 77.3 % (test code = 770-8) IMM GRAN % (test code 0.60 % = 4730937698) LYMPH % (test code = 11.6 % 736-9) MONO % (test code = 9.5 % 5905-5) EOS % (test code = 0.8 % 713-8) BASO % (test code = 0.2 % 706-2) GRAN MAT x10^3(ANC) 6.69 10*3/uL 1.99-6.95 (test code = 2033062888) IMM GRAN x10^3 (test 0.05 10*3/uL 0-0.06 code = 9539860762) LYMPH x10^3 (test code 1.00 10*3/uL 1.09-3.23 L = 731-0) MONO x10^3 (test code 0.82 10*3/uL 0.36-1.02 = 742-7) EOS x10^3 (test code = 0.07 10*3/uL 0.06-0.53 711-2) BASO x10^3 (test code <0.03 0.01-0.09 = 704-7) Lab Interpretation Abnormal (test code = 22182-1) [facility] CampusPrepare Packed RBC (in units), 1 Units 2020-05-05 15:59:33 Test Item Value Reference Range Interpretation Comments Cross Match Result Compatible (test code = 4409) ISBT Blood Type Code (test code = 950808) Unit Blood Type (test O Pos code = 4410) Unit Number (test [id number] code = 4411) Blood Expiration Date & Time (test code = 854520) Status Information Issued (test code = 4412) Product Red Blood Cells Identification (test code = 4413) Product Code (test [id number] Performed at [facility] code = 4414) Laboratory Services - [facility] Blood Ndbx530 [facility] s [address]Stmr Free: [phone] A No. [id number] [facility] CampusType and Screen - ONCE Krxxnqp8921-58-99 11:34:29 Test Item Value Reference Range Interpretation Comments ABO & RH (test code O POSITIVE Performe d at [facility] = 20) [facility] Blood [facility]3 [address] [facility] s [address]Hxsy Free: [phone] A No. [id number] IAT (test code = Negative Performed a t [facility] 1185) [facility] Blood [facility]3 [address] [facility] s [address]Wbff Free: [phone] A No. [id number] [facility] CampusPREALBUMIN2020-09-12 10:19:00 Test Item Value Reference Range Interpretation Comments PALB (test code = 07315-6) 8.0 mg/dL 18-45 L Lab Interpretation (test code = Abnormal 32791-5) [facility] CampusBasic Metabolic Panel (NA, K, CL, CO2, GLUCOSE, BUN, CREATININE, CA)2020-05-05 10:12:00 Test Item Value Reference Range Interpretation Comments NA (test code = 135 mmol/L 135-145 0406439911) K (test code = 4.1 mmol/L 3.5-5 2667364537) CL (test code = 106 mmol/L 98-108 9145871217) CO2 TOTAL (test code = 22 mmol/L 23-31 L 8069125269) AGAP (test code = 2-16 7103111248) BUN (test code = 25 mg/dL 7-23 H 5673136617) GLUCOSE (test code = 91 mg/dL 70-110 2279183529) CREATININE (test code = 0.68 mg/dL 0.6-1.25 8649770983) CALCIUM (test code = 7.4 mg/dL 8.6-10.6 L 3688670231) eGFR Calculation mL/min/1.73m2 (Non-) (test code = 4206845948) eGFR Calculation mL/min/1.73m2 () (test code = 4036595086) GILBERTO (test code = GILBERTO) Association of [...] tests). Lab Interpretation Abnormal (test code = 00779-8) [facility] Yajmd0362-40-21 10:12:00 Test Item Value Reference Range Interpretation Comments MAGNESIUM (test code = 1064491485) 1.8 mg/dL 1.7-2.4 Lab Interpretation (test code = Normal 31748-6) [facility] CampusPhosphorus Ifvhm6295-72-21 10:12:00 Test Item Value Reference Range Interpretation Comments PHOSPHORUS (test code = 8113366862) 3.1 mg/dL 2.5-5 Lab Interpretation (test code = Normal 64182-6) [facility] CampusCBC with Guzigvlyeyjn3551-92-49 09:18:00 Test Item Value Reference Range Interpretation [...] RDW-SD (test code = 48.4 fL 38.5-51.6 95233-7) RDW-CV (test code = 15.7 % 12.1-15.4 H 788-0) PLT (test code = See_Comment H [Automated 777-3) message] The sy stem which generated this result transmitted reference range : 150 - 328 10*3/ ?L. The reference r meredith was not used to interpret this result as normal/abnormal . MPV (test code = 9.1 fL 9.8-13 L 12019-3) NRBC/100 WBC (test See_Comment [Automat ed code = 5079061869) message] The system which generated this result transmitted reference range : 0.0 - 10.0 /100 WBCs. The refer ence range was not u sed to interpret th is result as normal/abnormal . NRBC x10^3 (test code <0.01 See_Comment [Auto mated = 5978446797) message] The s ystem which generated this result transmitted reference range : 10*3/?L. The reference range was not used to interpret this result as normal/abnormal . GRAN MAT (NEUT) % 79.0 % (test code = 770-8) IMM GRAN % (test code 0.70 % = 4791241719) LYMPH % (test code = 10.6 % 736-9) MONO % (test code = 8.9 % 5905-5) EOS % (test code = 0.5 % 713-8) BASO % (test code = 0.3 % 706-2) GRAN MAT x10^3(ANC) 7.81 10*3/uL 1.99-6.95 H (test code = 1079440761) IMM GRAN x10^3 (test 0.07 10*3/uL 0-0.06 H code = 7837452157) LYMPH x10^3 (test code 1.05 10*3/uL 1.09-3.23 L = 731-0) MONO x10^3 (test code 0.88 10*3/uL 0.36-1.02 = 742-7) EOS x10^3 (test code = 0.05 10*3/uL 0.06-0.53 L 711-2) BASO x10^3 (test code 0.03 10*3/uL 0.01-0.09 = 704-7) Lab Interpretation Abnormal (test code = 92985-8) [facility] CampusURINALYSIS2020-09-12 06:03:00 Test Item Value Reference Range Interpretation Comments APPEARANCE (test code = Hazy Clear A 5343566348) COLOR (test code = Yellow Yellow 6234362644) PH (test code = 4.8-8.0 3617399423) SP GRAVITY (test code = 1.003-1.030 H 8185460121) GLU U QUAL (test code = Normal Normal 6979674560) BLOOD (test code = Negative Negative 3349799336) KETONES (test code = Negative Negative 3703158616) PROTEIN (test code = Negative Negative 2887-8) UROBILIN (test code = Normal Normal 8613108099) BILIRUBIN (test code = Negative Negative 7740067561) NITRITE (test code = Negative Negative 7931126398) LEUK ROGER (test code = Negative Negative 5545892163) RBC/HPF (test code = See_Comment H [Autom ated message] 4969665600) The system The [employer] generated this result transmitted ref erence range: 0 - 3 HP F. The reference range was not used to int erpret this result as normal/abnormal . WBC/HPF (test code = See_Comment [Autom ated message] 3219163384) The system [employer] generated this result transmitted ref erence range: 0 - 5 HP F. The reference range was not used to int erpret this result as normal/abnormal . BACTERIA (test code = Few Negative A 5527271197) MUCOUS (test code = Slight Negative LPF A 7300291256) CA OXALATE (test code = See_Comment H [Au tomated message] 4087475793) The system The [employer] generated this result transmitted ref erence range: <=1 HPF. The reference range was not used to int erpret this result as normal/abnormal . Lab Interpretation (test Abnormal code = 05337-5) [facility] CampusCT ABDOMEN PELVIS W [id number] 04:56:59 1. ?Interval removal of left subdiaphragmatic, [...] Not Detected Not Detected (test code = 04790-8) GILBERTO (test code = GILBERTO) ID NOW COVID-19 Assay is an isothermal nucleic acid amplification test intended for the qualitative detection of nucleic acid from SARS-CoV-2 viral RNA in nasopharyngeal (INFORMATICS SPEC) specimens. It is used under Emergency Use [...] indicated. Lab Interpretation Normal (test code = 66074-0) [facility]. METABOLIC PANEL (51629)2020-05-05 03:02:00 Test Item Value Reference Range Interpretation Comments NA (test code = 134 mmol/L 135-145 L 6567843847) K (test code = 4.7 mmol/L 3.5-5 5642063980) CL (test code = 99 mmol/L 98-108 0426693486) CO2 TOTAL (test code = 24 mmol/L 23-31 7207401503) AGAP (test code = 2-16 7904477564) BUN (test code = 37 mg/dL 7-23 H 4012113176) GLUCOSE (test code = 105 mg/dL 70-110 4511486296) CREATININE (test code = 0.94 mg/dL 0.6-1.25 8867056022) TOTAL BILI (test code = 0.5 mg/dL 0.1-1.3 7457881112) CALCIUM (test code = 8.8 mg/dL 8.6-10.6 4482913906) T PROTEIN (test code = 6.2 g/dL 6.3-8.2 L 1392931353) ALBUMIN (test code = 3.0 g/dL 3.5-5 L 2188660136) ALK PHOS (test code = 150 U/L 34-122 H 0657958872) ALTv (test code = 28 U/L 5-50 1742-6) AST(SGOT) (test code = 23 U/L 13-40 0636318640) eGFR Calculation mL/min/1.73m2 (Non-) (test code = 6997828799) eGFR Calculation mL/min/1.73m2 () (test code = 1969455917) GILBERTO (test code = GILBERTO) Association of [...] tests). Lab Interpretation Abnormal (test code = 80839-0) [facility] CampusLIPASE2020-09-12 03:02:00 Test Item Value Reference Range Interpretation Comments LIPASE (test code = 5562199156) 323 U/L 0-220 H Lab Interpretation (test code = Abnormal 56820-9) [facility] CampusCB WITH [id number] 02:43:00 Test Item Value Reference Range Interpretation [...] RDW-SD (test code = 45.7 fL 38.5-51.6 06262-1) RDW-CV (test code = 15.4 % 12.1-15.4 788-0) PLT (test code = See_Comment H [Automated 777-3) message] The system which generated this result transmit dain reference range : 150 - 328 10*3/ ?L. The reference range was not u sed to interpret th is result as normal/abnormal . MPV (test code = 8.9 fL 9.8-13 L 08855-2) NRBC/100 WBC (test See_Comment [Automat ed code = 2599940246) message] The system which generated this result transmit dain reference range : 0.0 - 10.0 /100 WBCs. The reference range was not used to interpret this result as normal/abnormal . NRBC x10^3 (test code <0.01 See_Comment [Auto mated = 9446875906) message] The system which generated this result transmit dain reference range : 10*3/?L. The reference range was not used to interpret this result as normal/abnormal . GRAN MAT (NEUT) % 82.6 % (test code = 770-8) IMM GRAN % (test code 0.60 % = 9994894884) LYMPH % (test code = 8.1 % 736-9) MONO % (test code = 8.1 % 5905-5) EOS % (test code = 0.4 % 713-8) BASO % (test code = 0.2 % 706-2) GRAN MAT x10^3(ANC) 11.18 10*3/uL 1.99-6.95 H (test code = 7806044534) IMM GRAN x10^3 (test 0.08 10*3/uL 0-0.06 H code = 2982430520) LYMPH x10^3 (test code 1.10 10*3/uL 1.09-3.23 = 731-0) MONO x10^3 (test code 1.09 10*3/uL 0.36-1.02 H = 742-7) EOS x10^3 (test code = 0.05 10*3/uL 0.06-0.53 L 711-2) BASO x10^3 (test code 0.03 10*3/uL 0.01-0.09 = 704-7) Lab Interpretation Abnormal (test code = 99691-6) [facility] METABOLIC PANEL (NA, K, CL, CO2, GLUCOSE, BUN, CREATININE, CA)2020-05-01 12:25:00 Test Item Value Reference Range Interpretation Comments NA (test code = 131 mmol/L 135-145 L 4550139133) K (test code = 4.7 mmol/L 3.5-5 4763720599) CL (test code = 97 mmol/L 98-108 L 9233479715) CO2 TOTAL (test code = 25 mmol/L 23-31 6480582027) AGAP (test code = 2-16 9365885426) BUN (test code = 30 mg/dL 7-23 H 2865820609) GLUCOSE (test code = 111 mg/dL 70-110 H 5616249375) CREATININE (test code = 0.69 mg/dL 0.6-1.25 3837131386) CALCIUM (test code = 9.3 mg/dL 8.6-10.6 0113855290) eGFR Calculation mL/min/1.73m2 (Non-) (test code = 0173279695) eGFR Calculation mL/min/1.73m2 () (test code = 9673420600) GILBERTO (test code = GILBERTO) Association of [...] tests). Lab Interpretation Abnormal (test code = 60580-5) [facility] CampusMAGNESIUM2020-09-08 12:07:00 Test Item Value Reference Range Interpretation Comments MAGNESIUM (test code = 9827148930) 2.3 mg/dL 1.7-2.4 Lab Interpretation (test code = Normal 05232-8) [facility] CampusPHOSPHORUS2020-09-08 12:07:00 Test Item Value Reference Range Interpretation Comments PHOSPHORUS (test code = 2525818320) 4.6 mg/dL 2.5-5 Lab Interpretation (test code = Normal 56484-3) [facility] CampusCBC WITH [id number] 11:44:00 Test Item Value Reference Range Interpretation [...] RDW-SD (test code = 44.9 fL 38.5-51.6 92023-8) RDW-CV (test code = 14.8 % 12.1-15.4 788-0) PLT (test code = See_Comment H [Automated 777-3) message] The system which generated this result transmit dain reference range : 150 - 328 10*3/ ?L. The reference range was not u sed to interpret th is result as normal/abnormal . MPV (test code = 9.1 fL 9.8-13 L 09253-0) NRBC/100 WBC (test See_Comment [Automat ed code = 4689126649) message] The system which generated this result transmit dain reference range : 0.0 - 10.0 /100 WBCs. The reference range was not used to interpret this result as normal/abnormal . NRBC x10^3 (test code <0.01 See_Comment [Auto mated = 8244030084) message] The system which generated this result transmit dain reference range : 10*3/?L. The reference range was not used to interpret this result as normal/abnormal . GRAN MAT (NEUT) % 81.4 % (test code = 770-8) IMM GRAN % (test code 0.70 % = 5031041619) LYMPH % (test code = 8.7 % 736-9) MONO % (test code = 8.5 % 5905-5) EOS % (test code = 0.3 % 713-8) BASO % (test code = 0.4 % 706-2) GRAN MAT x10^3(ANC) 12.01 10*3/uL 1.99-6.95 H (test code = 4343822530) IMM GRAN x10^3 (test 0.10 10*3/uL 0-0.06 H code = 9649094155) LYMPH x10^3 (test code 1.28 10*3/uL 1.09-3.23 = 731-0) MONO x10^3 (test code 1.25 10*3/uL 0.36-1.02 H = 742-7) EOS x10^3 (test code = 0.04 10*3/uL 0.06-0.53 L 711-2) BASO x10^3 (test code 0.06 10*3/uL 0.01-0.09 = 704-7) Lab Interpretation Abnormal (test code = 05527-3) [facility] METABOLIC PANEL (NA, K, CL, CO2, GLUCOSE, BUN, CREATININE, CA)2020-04-29 12:08:00 Test Item Value Reference Range Interpretation Comments NA (test code = 130 mmol/L 135-145 L 5902036245) K (test code = 5.0 mmol/L 3.5-5 8802606027) CL (test code = 94 mmol/L 98-108 L 2294819953) CO2 TOTAL (test code = 27 mmol/L 23-31 4855226910) AGAP (test code = 2-16 0242712599) BUN (test code = 35 mg/dL 7-23 H 2775106180) GLUCOSE (test code = 116 mg/dL 70-110 H [id number]) CREATININE (test code = 0.76 mg/dL 0.6-1.25 6902014735) CALCIUM (test code = 9.0 mg/dL 8.6-10.6 7842711390) eGFR Calculation mL/min/1.73m2 (Non-) (test code = 0238235190) eGFR Calculation mL/min/1.73m2 () (test code = 7463080819) GILBERTO (test code = GILBERTO) Association of [...] tests). Lab Interpretation Abnormal (test code = 81450-3) [facility]UM2020[facility] 12:01:00 Test Item Value Reference Range Interpretation Comments MAGNESIUM (test code = 3300377155) 2.3 mg/dL 1.7-2.4 Lab Interpretation (test code = Normal 21800-5) [facility]PHOSPHORUS2020-09-06 12:01:00 Test Item Value Reference Range Interpretation Comments PHOSPHORUS (test code = 7022602458) 4.5 mg/dL 2.5-5 Lab Interpretation (test code = Normal 64570-6) [facility] CampusCBC WITH [id number] 11:52:00 Test Item Value Reference Range Interpretation [...] RDW-SD (test code = 44.4 fL 38.5-51.6 23012-5) RDW-CV (test code = 14.7 % 12.1-15.4 788-0) PLT (test code = See_Comment H [Automated 777-3) message] The system which generated this result transmit dain reference range : 150 - 328 10*3/ ?L. The reference range was not u sed to interpret th is result as normal/abnormal . MPV (test code = 9.1 fL 9.8-13 L 40864-7) NRBC/100 WBC (test See_Comment [Automat ed code = 8972436365) message] The system which generated this result transmit dain reference range : 0.0 - 10.0 /100 WBCs. The reference range was not used to interpret this result as normal/abnormal . NRBC x10^3 (test code <0.01 See_Comment [Auto mated = 4625857727) message] The system which generated this result transmit dain reference range : 10*3/?L. The reference range was not used to interpret this result as normal/abnormal . GRAN MAT (NEUT) % 82.5 % (test code = 770-8) IMM GRAN % (test code 1.30 % = 4610912436) LYMPH % (test code = 7.1 % 736-9) MONO % (test code = 8.5 % 5905-5) EOS % (test code = 0.3 % 713-8) BASO % (test code = 0.3 % 706-2) GRAN MAT x10^3(ANC) 14.27 10*3/uL 1.99-6.95 H (test code = 8725410413) IMM GRAN x10^3 (test 0.23 10*3/uL 0-0.06 H code = 0106557785) LYMPH x10^3 (test code 1.23 10*3/uL 1.09-3.23 = 731-0) MONO x10^3 (test code 1.47 10*3/uL 0.36-1.02 H = 742-7) EOS x10^3 (test code = 0.05 10*3/uL 0.06-0.53 L 711-2) BASO x10^3 (test code 0.06 10*3/uL 0.01-0.09 = 704-7) Lab Interpretation Abnormal (test code = 86164-7) [facility] METABOLIC PANEL (NA, K, CL, CO2, GLUCOSE, BUN, CREATININE, CA)2020-04-28 10:15:00 Test Item Value Reference Range Interpretation Comments NA (test code = 130 mmol/L 135-145 L 8267715613) K (test code = 5.3 mmol/L 3.5-5 H 7693551846) CL (test code = 91 mmol/L 98-108 L 5735730717) CO2 TOTAL (test code = 29 mmol/L 23-31 7694476013) AGAP (test code = 2-16 0944975159) BUN (test code = 32 mg/dL 7-23 H 6295262471) GLUCOSE (test code = 101 mg/dL 70-110 1308823978) CREATININE (test code = 0.74 mg/dL 0.6-1.25 2649313401) CALCIUM (test code = 9.5 mg/dL 8.6-10.6 7371183896) eGFR Calculation mL/min/1.73m2 (Non-) (test code = 9716036447) eGFR Calculation mL/min/1.73m2 () (test code = 7058756134) GILBERTO (test code = GILBERTO) Association of [...] tests). Lab Interpretation Abnormal (test code = 61144-2) [facility] 10:12:00 Test Item Value Reference Range Interpretation Comments MAGNESIUM (test code = 6589705586) 2.3 mg/dL 1.7-2.4 Lab Interpretation (test code = Normal 28290-8) [facility] WITH [id number] 09:55:00 Test Item Value Reference Range Interpretation [...] RDW-SD (test code = 45.1 fL 38.5-51.6 29421-2) RDW-CV (test code = 14.7 % 12.1-15.4 788-0) PLT (test code = See_Comment H [Automated 777-3) message] The system which generated this result transmit dain reference range : 150 - 328 10*3/ ?L. The reference range was not u sed to interpret th is result as normal/abnormal . MPV (test code = 9.5 fL 9.8-13 L 09424-3) NRBC/100 WBC (test See_Comment [Automat ed code = 1126554358) message] The system which generated this result transmit dain reference range : 0.0 - 10.0 /100 WBCs. The reference range was not used to interpret this result as normal/abnormal . NRBC x10^3 (test code <0.01 See_Comment [Auto mated = 9084651886) message] The system which generated this result transmit dain reference range : 10*3/?L. The reference range was not used to interpret this result as normal/abnormal . GRAN MAT (NEUT) % 81.1 % (test code = 770-8) IMM GRAN % (test code 1.40 % = 3668812313) LYMPH % (test code = 8.6 % 736-9) MONO % (test code = 7.9 % 5905-5) EOS % (test code = 0.5 % 713-8) BASO % (test code = 0.5 % 706-2) GRAN MAT x10^3(ANC) 14.68 10*3/uL 1.99-6.95 H (test code = 2530179265) IMM GRAN x10^3 (test 0.25 10*3/uL 0-0.06 H code = 6200266082) LYMPH x10^3 (test code 1.55 10*3/uL 1.09-3.23 = 731-0) MONO x10^3 (test code 1.43 10*3/uL 0.36-1.02 H = 742-7) EOS x10^3 (test code = 0.09 10*3/uL 0.06-0.53 711-2) BASO x10^3 (test code 0.09 10*3/uL 0.01-0.09 = 704-7) Lab Interpretation Abnormal (test code = 77213-2) [facility] METABOLIC PANEL (NA, K, CL, CO2, GLUCOSE, BUN, CREATININE, CA)2020-04-27 10:20:00 Test Item Value Reference Range Interpretation Comments NA (test code = 130 mmol/L 135-145 L 0722884340) K (test code = 4.5 mmol/L 3.5-5 6181336373) CL (test code = 93 mmol/L 98-108 L 7568586108) CO2 TOTAL (test code = 28 mmol/L 23-31 2466425304) AGAP (test code = 2-16 5099834297) BUN (test code = 31 mg/dL 7-23 H 3190383513) GLUCOSE (test code = 102 mg/dL 70-110 1013545295) CREATININE (test code = 0.81 mg/dL 0.6-1.25 5242189009) CALCIUM (test code = 9.0 mg/dL 8.6-10.6 4681572761) eGFR Calculation mL/min/1.73m2 (Non-) (test code = 6683816176) eGFR Calculation mL/min/1.73m2 () (test code = 0169820204) GILBERTO (test code = GILBERTO) Association of [...] tests). Lab Interpretation Abnormal (test code = 52750-8) [facility]2020-09-04 10:20:00 Test Item Value Reference Range Interpretation Comments MAGNESIUM (test code = 4799488472) 2.2 mg/dL 1.7-2.4 Lab Interpretation (test code = Normal 33055-6) [facility] WITH [id number] 09:49:00 Test Item Value Reference Range Interpretation Comments WBC (test code = See_Comment H [Automated 4490-2) message] The system which generated this result [...] RDW-SD (test code = 45.2 fL 38.5-51.6 61532-4) RDW-CV (test code = 14.5 % 12.1-15.4 788-0) PLT (test code = See_Comment H [Automated 777-3) message] The system which generated this result transmit dain reference range : 150 - 328 10*3/ ?L. The reference range was not u sed to interpret th is result as normal/abnormal . MPV (test code = 9.0 fL 9.8-13 L 40346-7) NRBC/100 WBC (test See_Comment [Automat ed code = 6790888160) message] The system which generated this result transmit dain reference range : 0.0 - 10.0 /100 WBCs. The reference range was not used to interpret this result as normal/abnormal . NRBC x10^3 (test code <0.01 See_Comment [Auto mated = 0930218016) message] The system which generated this result transmit dain reference range : 10*3/?L. The reference range was not used to interpret this result as normal/abnormal . GRAN MAT (NEUT) % 80.9 % (test code = 770-8) IMM GRAN % (test code 1.30 % = 3740368403) LYMPH % (test code = 8.9 % 736-9) MONO % (test code = 7.7 % 5905-5) EOS % (test code = 0.6 % 713-8) BASO % (test code = 0.6 % 706-2) GRAN MAT x10^3(ANC) 13.18 10*3/uL 1.99-6.95 H (test code = 9741073483) IMM GRAN x10^3 (test 0.21 10*3/uL 0-0.06 H code = 3583344629) LYMPH x10^3 (test code 1.45 10*3/uL 1.09-3.23 = 731-0) MONO x10^3 (test code 1.26 10*3/uL 0.36-1.02 H = 742-7) EOS x10^3 (test code = 0.09 10*3/uL 0.06-0.53 711-2) BASO x10^3 (test code 0.10 10*3/uL 0.01-0.09 H = 704-7) Lab Interpretation Abnormal (test code = 03109-9) [facility] METABOLIC PANEL (NA, K, CL, CO2, GLUCOSE, BUN, CREATININE, CA)2020-04-26 11:29:00 Test Item Value Reference Range Interpretation Comments NA (test code = 133 mmol/L 135-145 L 0469875893) K (test code = 4.7 mmol/L 3.5-5 4733723393) CL (test code = 98 mmol/L 98-108 6882049666) CO2 TOTAL (test code = 25 mmol/L 23-31 3192524319) AGAP (test code = 2-16 7193446049) BUN (test code = 26 mg/dL 7-23 H 2561134105) GLUCOSE (test code = 97 mg/dL 70-110 0941458611) CREATININE (test code = 0.73 mg/dL 0.6-1.25 5745029130) CALCIUM (test code = 8.7 mg/dL 8.6-10.6 7631435807) eGFR Calculation mL/min/1.73m2 (Non-) (test code = 1255137632) eGFR Calculation mL/min/1.73m2 () (test code = 3039652774) GILBERTO (test code = GILBERTO) Association of [...] tests). Lab Interpretation Abnormal (test code = 02821-0) [facility]2020-[facility] 11:29:00 Test Item Value Reference Range Interpretation Comments MAGNESIUM (test code = 1464139192) 2.1 mg/dL 1.7-2.4 Lab Interpretation (test code = Normal 30003-9) [facility] WITH [id number] 10:27:00 Test Item Value Reference Range Interpretation [...] RDW-SD (test code = 45.4 fL 38.5-51.6 91656-3) RDW-CV (test code = 14.5 % 12.1-15.4 788-0) PLT (test code = See_Comment H [Automated 777-3) message] The system which generated this result transmit dain reference range : 150 - 328 10*3/ ?L. The reference range was not u sed to interpret th is result as normal/abnormal . MPV (test code = 9.3 fL 9.8-13 L 54927-6) NRBC/100 WBC (test See_Comment [Automat ed code = 7098763254) message] The system which generated this result transmit dain reference range : 0.0 - 10.0 /100 WBCs. The reference range was not used to interpret this result as normal/abnormal . NRBC x10^3 (test code <0.01 See_Comment [Auto mated = 8580152351) message] The system which generated this result transmit dain reference range : 10*3/?L. The reference range was not used to interpret this result as normal/abnormal . GRAN MAT (NEUT) % 79.6 % (test code = 770-8) IMM GRAN % (test code 1.30 % = 7715654170) LYMPH % (test code = 8.6 % 736-9) MONO % (test code = 9.3 % 5905-5) EOS % (test code = 0.8 % 713-8) BASO % (test code = 0.4 % 706-2) GRAN MAT x10^3(ANC) 12.46 10*3/uL 1.99-6.95 H (test code = 8041115644) IMM GRAN x10^3 (test 0.21 10*3/uL 0-0.06 H code = 0286050808) LYMPH x10^3 (test code 1.34 10*3/uL 1.09-3.23 = 731-0) MONO x10^3 (test code 1.45 10*3/uL 0.36-1.02 H = 742-7) EOS x10^3 (test code = 0.13 10*3/uL 0.06-0.53 711-2) BASO x10^3 (test code 0.07 10*3/uL 0.01-0.09 = 704-7) Lab Interpretation Abnormal (test code = 37128-0) [facility] METABOLIC PANEL (NA, K, CL, CO2, GLUCOSE, BUN, CREATININE, CA)2020-04-25 10:03:00 Test Item Value Reference Range Interpretation Comments NA (test code = 133 mmol/L 135-145 L 9994705321) K (test code = 4.6 mmol/L 3.5-5 4943582292) CL (test code = 96 mmol/L 98-108 L 5246398303) CO2 TOTAL (test code = 27 mmol/L 23-31 9474863348) AGAP (test code = 2-16 8834898825) BUN (test code = 21 mg/dL 7-23 8322361969) GLUCOSE (test code = 108 mg/dL 70-110 7446584164) CREATININE (test code = 0.76 mg/dL 0.6-1.25 8153947830) CALCIUM (test code = 9.5 mg/dL 8.6-10.6 0619006280) eGFR Calculation mL/min/1.73m2 (Non-) (test code = 9394380570) eGFR Calculation mL/min/1.73m2 () (test code = 6684874834) GILBERTO (test code = GILBERTO) Association of [...] tests). Lab Interpretation Abnormal (test code = 63375-9) [facility]2020-[facility] 10:03:00 Test Item Value Reference Range Interpretation Comments MAGNESIUM (test code = 2588263157) 2.4 mg/dL 1.7-2.4 Lab Interpretation (test code = Normal 34346-3) [facility] WITH [id number] 09:48:00 Test Item Value Reference Range Interpretation Comments WBC (test code = See_Comment H [Automated 0390-2) message] The system which generated this result [...] RDW-SD (test code = 45.7 fL 38.5-51.6 58043-2) RDW-CV (test code = 14.3 % 12.1-15.4 788-0) PLT (test code = See_Comment HH [Automated 777-3) message] The system which generated this result transmit dain reference range : 150 - 328 10*3/ ?L. The reference range was not u sed to interpret th is result as normal/abnormal . MPV (test code = 9.1 fL 9.8-13 L 14183-8) NRBC/100 WBC (test See_Comment [Automat ed code = 7341062043) message] The system which generated this result transmit dain reference range : 0.0 - 10.0 /100 WBCs. The reference range was not used to interpret this result as normal/abnormal . NRBC x10^3 (test code <0.01 See_Comment [Auto mated = 6585992029) message] The system which generated this result transmit dain reference range : 10*3/?L. The reference range was not used to interpret this result as normal/abnormal . GRAN MAT (NEUT) % 78.9 % (test code = 770-8) IMM GRAN % (test code 1.70 % = 0445387319) LYMPH % (test code = 8.7 % 736-9) MONO % (test code = 9.1 % 5905-5) EOS % (test code = 0.9 % 713-8) BASO % (test code = 0.7 % 706-2) GRAN MAT x10^3(ANC) 11.96 10*3/uL 1.99-6.95 H (test code = 7263673534) IMM GRAN x10^3 (test 0.26 10*3/uL 0-0.06 H code = 4420960106) LYMPH x10^3 (test code 1.32 10*3/uL 1.09-3.23 = 731-0) MONO x10^3 (test code 1.38 10*3/uL 0.36-1.02 H = 742-7) EOS x10^3 (test code = 0.13 10*3/uL 0.06-0.53 711-2) BASO x10^3 (test code 0.11 10*3/uL 0.01-0.09 H = 704-7) Lab Interpretation Abnormal (test code = 72113-3) [facility] WITH [id number] 10:40:00 Test Item Value Reference Range Interpretation [...] RDW-SD (test code = 46.3 fL 38.5-51.6 62564-1) RDW-CV (test code = 14.5 % 12.1-15.4 788-0) PLT (test code = See_Comment HH [Automated 777-3) message] The sy stem which generated this result transmitted reference range : 150 - 328 10*3/ ?L. The reference r meredith was not used to interpret this result as normal/abnormal . MPV (test code = 9.1 fL 9.8-13 L 41039-7) NRBC/100 WBC (test See_Comment [Automat ed code = 7994697410) message] The system which generated this result transmitted reference range : 0.0 - 10.0 /100 WBCs. The refer ence range was not u sed to interpret th is result as normal/abnormal . NRBC x10^3 (test code <0.01 See_Comment [Auto mated = 6882545275) message] The s ystem which generated this result transmitted reference range : 10*3/?L. The reference range was not used to interpret this result as normal/abnormal . GRAN MAT (NEUT) % 74.7 % (test code = 770-8) IMM GRAN % (test code 2.00 % = 6472672237) LYMPH % (test code = 10.0 % 736-9) MONO % (test code = 11.4 % 5905-5) EOS % (test code = 1.3 % 713-8) BASO % (test code = 0.6 % 706-2) GRAN MAT x10^3(ANC) 9.44 10*3/uL 1.99-6.95 H (test code = 1281460919) IMM GRAN x10^3 (test 0.25 10*3/uL 0-0.06 H code = 2901074047) LYMPH x10^3 (test code 1.26 10*3/uL 1.09-3.23 = 731-0) MONO x10^3 (test code 1.44 10*3/uL 0.36-1.02 H = 742-7) EOS x10^3 (test code = 0.16 10*3/uL 0.06-0.53 711-2) BASO x10^3 (test code 0.07 10*3/uL 0.01-0.09 = 704-7) Lab Interpretation Abnormal (test code = 05957-2) [facility] METABOLIC PANEL (NA, K, CL, CO2, GLUCOSE, BUN, CREATININE, CA)2020-04-24 10:39:00 Test Item Value Reference Range Interpretation Comments NA (test code = 133 mmol/L 135-145 L 4524352550) K (test code = 4.3 mmol/L 3.5-5 9846559377) CL (test code = 99 mmol/L 98-108 0286288372) CO2 TOTAL (test code = 29 mmol/L 23-31 5621105289) AGAP (test code = 2-16 1139230709) BUN (test code = 20 mg/dL 7-23 0482352220) GLUCOSE (test code = 109 mg/dL 70-110 8078987256) CREATININE (test code = 0.78 mg/dL 0.6-1.25 7992232537) CALCIUM (test code = 8.4 mg/dL 8.6-10.6 L 7926055808) eGFR Calculation mL/min/1.73m2 (Non-) (test code = 1952632244) eGFR Calculation mL/min/1.73m2 () (test code = 9236465494) GILBERTO (test code = GILBERTO) Association of [...] tests). Lab Interpretation Abnormal (test code = 08075-6) [facility] Test Item Value Reference Range Interpretation Comments MAGNESIUM (test code = 8636952947) 2.2 mg/dL 1.7-2.4 Lab Interpretation (test code = Normal 75772-1) [facility]OMEN PELVIS W [id number] 09:30:06 1. ?Overall, no significant change in [...] [facility] THORAX W [id number] 03:46:28 Acute pulmonary emboli in the anterior [...] andmorphology. No significant pericardial thickening or effusion. Qewyxuyj-es-cryfk cardiomediastinal shift. Scattered subcentimeter mediastinal and bilateral [...] andmorphology. No significant pericardial thickening or effusion. Fxoibmas-pz-hofvb cardiomediastinal shift.Scattered subcentimeter mediastinal and bilateral hilar [...] Not Detected Not Detected (test code = 26352-6) GILBERTO (test code = GILBERTO) ID NOW COVID-19 Assay is an isothermal nucleic acid amplification test intended for the qualitative detection of nucleic acid from SARS-CoV-2 viral RNA in nasopharyngeal (INFORMATICS SPEC) specimens. It is used under Emergency Use [...] indicated. Lab Interpretation Normal (test code = 57812-0) [facility]PRE[facility]IN2020-08-31 17:40:00 Test Item Value Reference Range Interpretation Comments PALB (test code = 52268-6) 11.8 mg/dL 18-45 L Lab Interpretation (test code = Abnormal 32261-4) [facility]XR CHEST 1 [id number] 15:00:55 Stable appearance of left pleural effusion [...] [facility] CampusPOTASSIUM [id number] 14:14:00 Test Item Value Reference Range Interpretation Comments K (test code = 4750614893) 4.8 mmol/L 3.5-5 Lab Interpretation (test code = Normal 26027-1) [facility] WITH [id number] 11:30:00 Test Item Value Reference Range Interpretation [...] RDW-SD (test code = 45.0 fL 38.5-51.6 78972-6) RDW-CV (test code = 14.5 % 12.1-15.4 788-0) PLT (test code = See_Comment HH [Automated 777-3) message] The sy stem which generated this result transmitted reference range : 150 - 328 10*3/ ?L. The reference r meredith was not used to interpret this result as normal/abnormal . MPV (test code = 9.4 fL 9.8-13 L 85191-0) IPF % (test code = 1.6 % 1.2-10.7 Platelet count 7482300999) measured by fluorescence method. NRBC/100 WBC (test See_Comment [Automat ed code = 0046359923) message] The system which generated this result transmitted reference range : 0.0 - 10.0 /100 WBCs. The refer ence range was not u sed to interpret th is result as normal/abnormal . NRBC x10^3 (test code <0.01 See_Comment [Auto mated = 5740182214) message] The s ystem which generated this result transmitted reference range : 10*3/?L. The reference range was not used to interpret this result as normal/abnormal . GRAN MAT (NEUT) % 73.4 % (test code = 770-8) IMM GRAN % (test code 1.80 % = 3329427711) LYMPH % (test code = 12.6 % 736-9) MONO % (test code = 10.8 % 5905-5) EOS % (test code = 1.0 % 713-8) BASO % (test code = 0.4 % 706-2) GRAN MAT x10^3(ANC) 9.57 10*3/uL 1.99-6.95 H (test code = 6952029504) IMM GRAN x10^3 (test 0.24 10*3/uL 0-0.06 H code = 7019999268) LYMPH x10^3 (test code 1.64 10*3/uL 1.09-3.23 = 731-0) MONO x10^3 (test code 1.41 10*3/uL 0.36-1.02 H = 742-7) EOS x10^3 (test code = 0.13 10*3/uL 0.06-0.53 711-2) BASO x10^3 (test code 0.05 10*3/uL 0.01-0.09 = 704-7) Lab Interpretation Abnormal (test code = 00275-7) [facility] METABOLIC PANEL (NA, K, CL, CO2, GLUCOSE, BUN, CREATININE, CA)2020-04-23 10:52:00 Test Item Value Reference Range Interpretation Comments NA (test code = 132 mmol/L 135-145 L 8526547372) K (test code = 5.7 mmol/L 3.5-5 H 2399385258) CL (test code = 97 mmol/L 98-108 L 1891644662) CO2 TOTAL (test code = 26 mmol/L 23-31 3588809502) AGAP (test code = 2-16 2364620699) BUN (test code = 34 mg/dL 7-23 H 9882891405) GLUCOSE (test code = 101 mg/dL 70-110 6559867302) CREATININE (test code = 0.85 mg/dL 0.6-1.25 4716347302) CALCIUM (test code = 9.0 mg/dL 8.6-10.6 2316649006) eGFR Calculation mL/min/1.73m2 (Non-) (test code = 1719399674) eGFR Calculation mL/min/1.73m2 () (test code = 7782621195) GILBERTO (test code = GILBERTO) Association of [...] tests). Lab Interpretation Abnormal (test code = 62432-8) [facility]2020-08-31 10:52:00 Test Item Value Reference Range Interpretation Comments MAGNESIUM (test code = 3683373797) 2.3 mg/dL 1.7-2.4 Lab Interpretation (test code = Normal 25143-0) [facility] 1 [id number] 13:26:55 FINDINGS/IMPRESSION: 1. ?A left pigtail chest [...] pleural effusion COMPARISON: Chest x-ray on 04/21/2020 Ut, Radiant Results Inft User - 04/22/2020 8:28 [...] reviewed this study and agree with theaberic report. [facility] (NA, K, CL, CO2, GLUCOSE, BUN, CREATININE, CA)2020-04-22 11:49:00 Test Item Value Reference Range Interpretation Comments NA (test code = 132 mmol/L 135-145 L 1349082980) K (test code = 4.7 mmol/L 3.5-5 6641522391) CL (test code = 97 mmol/L 98-108 L 5152936991) CO2 TOTAL (test code = 30 mmol/L 23-31 4834776311) AGAP (test code = 2-16 1326515674) BUN (test code = 28 mg/dL 7-23 H 5088078024) GLUCOSE (test code = 117 mg/dL 70-110 H 3563530209) CREATININE (test code = 0.88 mg/dL 0.6-1.25 8305454787) CALCIUM (test code = 8.8 mg/dL 8.6-10.6 5548385115) eGFR Calculation mL/min/1.73m2 (Non-) (test code = 2567982082) eGFR Calculation mL/min/1.73m2 () (test code = 7114585797) GILBERTO (test code = GILBERTO) Association of [...] tests). Lab Interpretation Abnormal (test code = 31619-2) [facility]2020-08-30 11:49:00 Test Item Value Reference Range Interpretation Comments MAGNESIUM (test code = 4703716228) 2.4 mg/dL 1.7-2.4 Lab Interpretation (test code = Normal 71317-2) [facility] WITH [id number] 11:23:00 Test Item Value Reference Range Interpretation [...] RDW-SD (test code = 44.9 fL 38.5-51.6 33606-1) RDW-CV (test code = 14.4 % 12.1-15.4 788-0) PLT (test code = See_Comment HH [Automated 777-3) message] The sy stem which generated this result transmitted reference range : 150 - 328 10*3/ ?L. The reference r meredith was not used to interpret this result as normal/abnormal . MPV (test code = 9.5 fL 9.8-13 L 36875-7) NRBC/100 WBC (test See_Comment [Automat ed code = 6794941309) message] The system which generated this result transmitted reference range : 0.0 - 10.0 /100 WBCs. The refer ence range was not u sed to interpret th is result as normal/abnormal . NRBC x10^3 (test code <0.01 See_Comment [Auto mated = 5890624336) message] The s ystem which generated this result transmitted reference range : 10*3/?L. The reference range was not used to interpret this result as normal/abnormal . GRAN MAT (NEUT) % 80.3 % (test code = 770-8) IMM GRAN % (test code 1.50 % = 7085534619) LYMPH % (test code = 7.2 % 736-9) MONO % (test code = 9.7 % 5905-5) EOS % (test code = 0.7 % 713-8) BASO % (test code = 0.6 % 706-2) GRAN MAT x10^3(ANC) 9.99 10*3/uL 1.99-6.95 H (test code = [id number]) IMM GRAN x10^3 (test 0.19 10*3/uL 0-0.06 H code = [id number]) LYMPH x10^3 (test code 0.90 10*3/uL 1.09-3.23 L = 731-0) MONO x10^3 (test code 1.21 10*3/uL 0.36-1.02 H = 742-7) EOS x10^3 (test code = 0.09 10*3/uL 0.06-0.53 711-2) BASO x10^3 (test code 0.07 10*3/uL 0.01-0.09 = 704-7) Lab Interpretation Abnormal (test code = 94779-8) [facility] WITH [id number] 14:15:00 Test Item Value Reference Range Interpretation [...] RDW-SD (test code = 44.4 fL 38.5-51.6 58660-4) RDW-CV (test code = 14.2 % 12.1-15.4 788-0) PLT (test code = See_Comment HH [Automated 777-3) message] The sy stem which generated this result transmitted reference range : 150 - 328 10*3/ ?L. The reference r meredith was not used to interpret this result as normal/abnormal . MPV (test code = 9.0 fL 9.8-13 L 65096-1) NRBC/100 WBC (test See_Comment [Automat ed code = [id number]) message] The system which generated this result transmitted reference range : 0.0 - 10.0 /100 WBCs. The refer ence range was not u sed to interpret th is result as normal/abnormal . NRBC x10^3 (test code <0.01 See_Comment [Auto mated = [id number]) message] The s ystem which generated this result transmitted reference range : 10*3/?L. The reference range was not used to interpret this result as normal/abnormal . GRAN MAT (NEUT) % 76.4 % (test code = 770-8) IMM GRAN % (test code 1.30 % = [id number]) LYMPH % (test code = 10.9 % 736-9) MONO % (test code = 9.6 % 5905-5) EOS % (test code = 1.1 % 713-8) BASO % (test code = 0.7 % 706-2) GRAN MAT x10^3(ANC) 9.41 10*3/uL 1.99-6.95 H (test code = 8575579044) IMM GRAN x10^3 (test 0.16 10*3/uL 0-0.06 H code = 9824039804) LYMPH x10^3 (test code 1.34 10*3/uL 1.09-3.23 = 731-0) MONO x10^3 (test code 1.18 10*3/uL 0.36-1.02 H = 742-7) EOS x10^3 (test code = 0.13 10*3/uL 0.06-0.53 711-2) BASO x10^3 (test code 0.08 10*3/uL 0.01-0.09 = 704-7) Lab Interpretation Abnormal (test code = 46138-5) [facility] METABOLIC PANEL (NA, K, CL, CO2, GLUCOSE, BUN, CREATININE, CA)2020-04-21 13:47:00 Test Item Value Reference Range Interpretation Comments NA (test code = 130 mmol/L 135-145 L 7744732029) K (test code = 4.8 mmol/L 3.5-5 1704981632) CL (test code = 95 mmol/L 98-108 L 9638545087) CO2 TOTAL (test code = 29 mmol/L 23-31 1868492364) AGAP (test code = 2-16 6114554187) BUN (test code = 25 mg/dL 7-23 H 9044049020) GLUCOSE (test code = 98 mg/dL 70-110 3232459249) CREATININE (test code = 0.78 mg/dL 0.6-1.25 8373315889) CALCIUM (test code = 8.2 mg/dL 8.6-10.6 L 5048776887) eGFR Calculation mL/min/1.73m2 (Non-) (test code = 9332846579) eGFR Calculation mL/min/1.73m2 () (test code = 8881125152) GILBERTO (test code = GILBERTO) Association of [...] tests). Lab Interpretation Abnormal (test code = 37859-1) [facility]2020-08[facility]29 13:47:00 Test Item Value Reference Range Interpretation Comments MAGNESIUM (test code = 9600176856) 2.1 mg/dL 1.7-2.4 Lab Interpretation (test code = Normal 66345-0) [facility]PREAL[facility]UMIN2020-08-28 21:30:00 Test Item Value Reference Range Interpretation Comments PALB (test code = 24676-8) 9.3 mg/dL 18-45 L Lab Interpretation (test code = Abnormal 47568-4) [facility] CampusBody Fluid [id number] 14:32:00 Test Item Value Reference Range Interpretation Comments BODY FLUID CULT No organisms isolated (test code = 611-4) Gram stain (test Occasional (Rare) code = 664-3) Polymorphonuclear leukocytes [facility] CampusXR CHEST 1 [id number] 13:09:21EXAM: XR CHEST 1 VW HISTORY: ct [...] heart and great vessels are normal. ? [facility], Radiant Results Inft User - 04/20/2020 8:10 [...] The heart and great vessels are normal. [facility] METABOLIC PANEL (NA, K, CL, CO2, GLUCOSE, BUN, CREATININE, CA)2020-04-20 11:00:00 Test Item Value Reference Range Interpretation Comments NA (test code = 132 mmol/L 135-145 L 9619571487) K (test code = 5.2 mmol/L 3.5-5 H 5908032654) CL (test code = 100 mmol/L 98-108 8976653576) CO2 TOTAL (test code = 24 mmol/L 23-31 9762895945) AGAP (test code = 2-16 0153362886) BUN (test code = 19 mg/dL 7-23 4994492484) GLUCOSE (test code = 121 mg/dL 70-110 H 5327075010) CREATININE (test code = 0.77 mg/dL 0.6-1.25 3329647781) CALCIUM (test code = 8.2 mg/dL 8.6-10.6 L 2614305972) eGFR Calculation mL/min/1.73m2 (Non-) (test code = 8736895681) eGFR Calculation mL/min/1.73m2 () (test code = 5684038868) GILBERTO (test code = GILBERTO) Association of [...] tests). Lab Interpretation Abnormal (test code = 24982-6) [facility]2020-08-28 11:00:00 Test Item Value Reference Range Interpretation Comments MAGNESIUM (test code = 6344433799) 2.1 mg/dL 1.7-2.4 Lab Interpretation (test code = Normal 06501-7) [facility]PHOSPHORUS2020-08-28 11:00:00 Test Item Value Reference Range Interpretation Comments PHOSPHORUS (test code = 3302249528) 3.9 mg/dL 2.5-5 Lab Interpretation (test code = Normal 89607-7) [facility] CampusCBC WITH [id number] 10:23:00 Test Item Value Reference Range Interpretation Comments WBC (test code = See_Comment H [Automated 5090-2) message] The system which generated this result transmit dain reference range : 4.20 - 10.70 10*3/?L. The reference range was not used to interpret this result as normal/abnormal . RBC (test code = See_Comment L [Automated 449-8) message] The system which generated this result [...] RDW-SD (test code = 45.2 fL 38.5-51.6 06852-9) RDW-CV (test code = 14.2 % 12.1-15.4 788-0) PLT (test code = See_Comment HH [Automated 777-3) message] The system which generated this result transmit dain reference range : 150 - 328 10*3/ ?L. The reference range was not u sed to interpret th is result as normal/abnormal . MPV (test code = 9.3 fL 9.8-13 L 56043-5) NRBC/100 WBC (test See_Comment [Automat ed code = 1147930494) message] The system which generated this result transmit dain reference range : 0.0 - 10.0 /100 WBCs. The reference range was not used to interpret this result as normal/abnormal . NRBC x10^3 (test code <0.01 See_Comment [Auto mated = 1481219558) message] The system which generated this result transmit dain reference range : 10*3/?L. The reference range was not used to interpret this result as normal/abnormal . GRAN MAT (NEUT) % 79.8 % (test code = 770-8) IMM GRAN % (test code 1.50 % = 9570710328) LYMPH % (test code = 9.8 % 736-9) MONO % (test code = 7.5 % 5905-5) EOS % (test code = 0.6 % 713-8) BASO % (test code = 0.8 % 706-2) GRAN MAT x10^3(ANC) 10.64 10*3/uL 1.99-6.95 H (test code = 7960436091) IMM GRAN x10^3 (test 0.20 10*3/uL 0-0.06 H code = 3424203948) LYMPH x10^3 (test code 1.31 10*3/uL 1.09-3.23 = 731-0) MONO x10^3 (test code 1.00 10*3/uL 0.36-1.02 = 742-7) EOS x10^3 (test code = 0.08 10*3/uL 0.06-0.53 711-2) BASO x10^3 (test code 0.10 10*3/uL 0.01-0.09 H = 704-7) Lab Interpretation Abnormal (test code = 60881-4) [facility] 1 [id number] 12:25:53 No residual pleural effusion noted. Preliminary [...] acute bony abnormality. [facility], Radiant Results Inft 04/19/2020 7:27 AM CDTPROCEDURE: XR CHEST 1 VWCLINICAL INDICATION: left pleural effusion COMPARISON: Chest x-ray dated 04/18/2020.FINDINGS:The left lower chestand upper quadrant chest tubes are unchanged.Interval improvement in the previously noted left midlung opacity.Persistent opacity of the left bone. Otherwise, the lungs are clear. Nopleural effusion orpneumothorax is seen. The heart is unchanged.No acute bony abnormality.IMPRESSIONNo residual pleural effusion noted.Preliminary Report Dictated by Resident: Lincoln Gee MD., have reviewed this study and agree with theabove report.[facility] CampusBAS[facility] METABOLIC PANEL (NA, K, CL, CO2, GLUCOSE, BUN, CREATININE, CA)2020-04-19 11:09:00 Test Item Value Reference Range Interpretation Comments NA (test code = 133 mmol/L 135-145 L 4921515712) K (test code = 4.2 mmol/L 3.5-5 1275117168) CL (test code = 101 mmol/L 98-108 6438965581) CO2 TOTAL (test code = 26 mmol/L 23-31 7807878395) AGAP (test code = 2-16 2583059763) BUN (test code = 15 mg/dL 7-23 2289257983) GLUCOSE (test code = 113 mg/dL 70-110 H 4376339183) CREATININE (test code = 0.73 mg/dL 0.6-1.25 5554529651) CALCIUM (test code = 8.1 mg/dL 8.6-10.6 L 0790172595) eGFR Calculation mL/min/1.73m2 (Non-) (test code = 5314696565) eGFR Calculation mL/min/1.73m2 () (test code = 5791246456) GILBERTO (test code = GILBERTO) Association of [...] tests). Lab Interpretation Abnormal (test code = 95341-4) [facility]MAG[facility]2020-08-27 11:09:00 Test Item Value Reference Range Interpretation Comments MAGNESIUM (test code = 0255148392) 2.1 mg/dL 1.7-2.4 Lab Interpretation (test code = Normal 04628-3) [facility]PH[facility]2020-08-27 11:09:00 Test Item Value Reference Range Interpretation Comments PHOSPHORUS (test code = 1235344495) 3.9 mg/dL 2.5-5 Lab Interpretation (test code = Normal 23336-5) [facility] CampusCBC WITH [id number] 10:59:00 Test Item Value Reference Range Interpretation [...] RDW-SD (test code = 46.0 fL 38.5-51.6 88371-3) RDW-CV (test code = 14.2 % 12.1-15.4 788-0) PLT (test code = See_Comment HH [Automated 777-3) message] The sy stem which generated this result transmitted reference range : 150 - 328 10*3/ ?L. The reference r meredith was not used to interpret this result as normal/abnormal . MPV (test code = 9.3 fL 9.8-13 L 68332-0) NRBC/100 WBC (test See_Comment [Automat ed code = 2495413555) message] The system which generated this result transmitted reference range : 0.0 - 10.0 /100 WBCs. The refer ence range was not u sed to interpret th is result as normal/abnormal . NRBC x10^3 (test code <0.01 See_Comment [Auto mated = 5222987705) message] The s ystem which generated this result transmitted reference range : 10*3/?L. The reference range was not used to interpret this result as normal/abnormal . GRAN MAT (NEUT) % 79.2 % (test code = 770-8) IMM GRAN % (test code 1.00 % = 8135209117) LYMPH % (test code = 11.4 % 736-9) MONO % (test code = 6.7 % 5905-5) EOS % (test code = 1.0 % 713-8) BASO % (test code = 0.7 % 706-2) GRAN MAT x10^3(ANC) 9.49 10*3/uL 1.99-6.95 H (test code = 3111404585) IMM GRAN x10^3 (test 0.12 10*3/uL 0-0.06 H code = 3353249591) LYMPH x10^3 (test code 1.36 10*3/uL 1.09-3.23 = 731-0) MONO x10^3 (test code 0.80 10*3/uL 0.36-1.02 = 742-7) EOS x10^3 (test code = 0.12 10*3/uL 0.06-0.53 711-2) BASO x10^3 (test code 0.08 10*3/uL 0.01-0.09 = 704-7) Lab Interpretation Abnormal (test code = 38291-5) [facility] CampusBLOOD CULTURE [id number] 22:29:00 Test Item Value Reference Range Interpretation Comments Blood Culture-Aerobic No organisms No growth Previo us (test code = 74413-0) isolated prelim inary verified result was Culture In Progress on 04/13/2020 at 06 06 CDT Blood Culture positive. No growth AA Previous Culture-Anaerobic See Blood Culture preli minary (test code = 05549-5) Workup for verifi ed result additional was Culture In information. Progress on 04/12/2020 at 18 01 CDT Lab Interpretation Abnormal (test code = 93625-4) [facility] CampusIR PLEURAL DRAINAGE WITH TUBE WITH IMAGING 2020-04-18 15:38:00Successful image guided 10 Palau[place] pigtail chest tube insertioninto the left pleural [...] was obtained. Prior to beginning the procedure, [place] Protocolwas performed to confirm the patient's identity [...] pleural space. The tractwas dilated to 10 Palauan, and a 10 Palauan pigtail chest tube was insertedand coiled within [...] demonstrated a large amount of pleural fluid. [facility], Radiant Results Inft User - 04/18/2020 10:39 [...] was obtained. Prior to beginning the procedure, [place] Protocolwas performed to confirm the patient's identity [...] pleural space. The tractwas dilated to 10 Pal[place], and a 10 Palauan pigtail chest tube was insertedand coiled within [...] of pleural fluid. IMPRESSIONSuccessful image guided 10 Palauan pigtail chest tube insertioninto the left pleural space. PLAN: Post procedure chest radiograph will be obtained.[facility]XR CHEST 1 [id number] 13:37:38 Hazy left midlung opacity, may represent [...] on the left. No acute bony abnormality. [facility], Radiant Results Inft User - 04/18/2020 8:40 [...] abovereport.[facility] (NA, K, CL, CO2, GLUCOSE, BUN, CREATININE, CA)2020-04-18 11:18:00 Test Item Value Reference Range Interpretation Comments NA (test code = 134 mmol/L 135-145 L 8658780831) K (test code = 4.4 mmol/L 3.5-5 3570872570) CL (test code = 102 mmol/L 98-108 5459231702) CO2 TOTAL (test code = 26 mmol/L 23-31 9291428081) AGAP (test code = 2-16 2293430895) BUN (test code = 12 mg/dL 7-23 9219729716) GLUCOSE (test code = 106 mg/dL 70-110 2029657011) CREATININE (test code = 0.74 mg/dL 0.6-1.25 4504670563) CALCIUM (test code = 7.5 mg/dL 8.6-10.6 L 2668540764) eGFR Calculation mL/min/1.73m2 (Non-) (test code = 1560190759) eGFR Calculation mL/min/1.73m2 () (test code = 0228387935) GILBERTO (test code = GILBERTO) Association of [...] tests). Lab Interpretation Abnormal (test code = 47333-3) [facility]2020-08-26 11:18:00 Test Item Value Reference Range Interpretation Comments MAGNESIUM (test code = 5031235456) 2.0 mg/dL 1.7-2.4 Lab Interpretation (test code = Normal 86186-1) [facility]PHOS[facility]ORUS2020-08-26 11:18:00 Test Item Value Reference Range Interpretation Comments PHOSPHORUS (test code = 7779797432) 3.4 mg/dL 2.5-5 Lab Interpretation (test code = Normal 12722-8) [facility] WITH [id number] 10:46:00 Test Item Value Reference Range Interpretation Comments WBC (test code = See_Comment H [Automated 5290-2) message] The system which generated this result transmit dain reference range : 4.20 - 10.70 10*3/?L. The reference range was not used to interpret this result as normal/abnormal . RBC (test code = See_Comment L [Automated 649-8) message] The system which generated this result [...] RDW-SD (test code = 46.5 fL 38.5-51.6 98512-5) RDW-CV (test code = 14.5 % 12.1-15.4 788-0) PLT (test code = See_Comment HH [Automated 777-3) message] The system which generated this result transmit dain reference range : 150 - 328 10*3/ ?L. The reference range was not u sed to interpret th is result as normal/abnormal . MPV (test code = 9.6 fL 9.8-13 L 98329-7) NRBC/100 WBC (test See_Comment [Automat ed code = 9456208868) message] The system which generated this result transmit dain reference range : 0.0 - 10.0 /100 WBCs. The reference range was not used to interpret this result as normal/abnormal . NRBC x10^3 (test code <0.01 See_Comment [Auto mated = 0408276612) message] The system which generated this result transmit dain reference range : 10*3/?L. The reference range was not used to interpret this result as normal/abnormal . GRAN MAT (NEUT) % 82.1 % (test code = 770-8) IMM GRAN % (test code 0.90 % = 6806297133) LYMPH % (test code = 9.2 % 736-9) MONO % (test code = 6.6 % 5905-5) EOS % (test code = 0.7 % 713-8) BASO % (test code = 0.5 % 706-2) GRAN MAT x10^3(ANC) 10.02 10*3/uL 1.99-6.95 H (test code = 4143632443) IMM GRAN x10^3 (test 0.11 10*3/uL 0-0.06 H code = 2072346178) LYMPH x10^3 (test code 1.12 10*3/uL 1.09-3.23 = 731-0) MONO x10^3 (test code 0.80 10*3/uL 0.36-1.02 = 742-7) EOS x10^3 (test code = 0.08 10*3/uL 0.06-0.53 711-2) BASO x10^3 (test code 0.06 10*3/uL 0.01-0.09 = 704-7) Lab Interpretation Abnormal (test code = 74333-4) [facility] CampusBLOOD CULTURE [id number] 20:01:00 Test Item Value Reference Range Interpretation Comments Blood Culture-Aerobic No organisms No growth Previo us (test code = 92116-4) isolated prelim inary verified result was Culture [...] Culture-Anaerobic isolated preliminar y (test code = 98507-9) verifi ed result was Culture In Progress [...] CDT Lab Interpretation Normal (test code = 83518-5) [facility] 1 [id number] 19:38:57 FINDINGS/IMPRESSION: There are 2 left-sided chest [...] Chapa.[facility] CampusCyt Pleural [id number] 17:29:00 Test Item Value Reference Range Interpretation Comments Case Report (test code Non-Gynecologic = 4293083939) Cytology ?Case: [id number] ?Authorizing Provider: ?Vance Stafford MD ?Collected: ? 04/16/2020 1650 ?Ordering Location: ? ? Surgery ([facility]C) ? Received: ?04/16/2020 1809 ?Pathologist: ? Nawgiri, Alice S, MD ? Specimen: ? ?PLEURAL, LEFT, EFFUSION ? Final Diagnosis (test i4pmtGLaTBNcg8wtINBkuS code = 3360436985) FuZzEwMzNcZnRuYmpcdWMx EIjgtmYlGAqzq7NfE7OxIj AwMFxhbnNpXGRlZmxhbmcx XKYlZLP3oiEgDXQgISqgZA GmBEyuTr9eiSQakXkyMuRs YVOgv9bciiPAxpjmoGb2t8 cuDCBnAfN0kLOzFYcqR0go jpTtdWBtFUDnONv2yO43OO DjeH9muICuFFxurbOrIuC4 JHkvNLEqRrD0PXGyuCJpKD CrG5neTZMkDNvcEYUaTAml vEPzJJP5uOfsv9E7qAFozW WitTgqTcRqIkVyXJMQy5Pj DPn8xMwqN0JwUHKmJcP7yO QgUGFyYWdyYXBoIEZvbnQ7 sP74JNiekmG3vIYoa2Qsh2 5iy628pM1jgQGmJHV8HENr OODhjHCkEJDsPVE0NWLscX DmZ7pkGTnaCQ9zoiwdHEE5 MFxtYXJndDcyMFxtYXJnYj KolBBpKKAgnDgtZKzyx213 UKG8BfOhNB8gP8Xwx2F5pJ 9maXRcZGVmdGFiNzIwXGZv xq2bnJOoPMghj9JwLZX9uk L9nJMjiDNrOJEySW87Ebzq q1IxWqqqSEC4GJMvsjPfv0 Xfj4sjXhJtefHyU9xaU1Ow ZHJoZWFkXHBnYnJkcmZvb3 Unr4LbfNHgmFb4o1ahQBJt WJAxeHdmb1ssVMR7BOFwM8 C8sDGcg6htGZpbMGRctFQ3 zqVkATHzaGPmG8MhlI4aDF rwNP5hjxg4t5okWdFiDH9p oftnj3gzXXirRBUvMLA4Hf ZeXVXdx5BljsqnLvDck5Cl mZVeCVuwC36gw145KMRser VxZ6ztqDYjdxyuxJWdcsug AVzdgiM7QAHydsNtoJpenZ 2dRcPsClRdDIepFC0fONAe Z3vemQBzJYLbILYbH8rkUo VhiM2ryWqmEBkoKqNbUvUu MFxiIEEuICBQTEVVUkEsIE zDSsC2TMSEP5VOO7DWCDQT SVMgRkxVSURccGFyICAgIC VbBI1pNC1DLNVDXIQEZB7C UATCJjCGJ69TTiEVBDmDRK 4VDYVWB3OMQZwXV5gnUJOy ICAgICAgLSBORUdBVElWRS PYK5XqBKNZHMoNLZ4UQFOR TExTXHBsYWluXGYxXGZzMj BcbGFuZzEwMzNcaGljaFxm OZclZiTwHPQiEUjfE6lgXl LpIjOnTDCdCHKZGWUIP98R QB7TSKxwJPD3n4oxjCPrNM KejOJgAlMaNFNhTYLbg9kp ZGVmbGFuZzEwMzNcZnRuYm enhDUiEKWyLgPsd3ddp606 lNEii5ozPGVaExD8aVArPN UvlMbgyie6aGpwWxSuVPXd i9phkzBaHeXtRIFrBDWlOR DdoMOqC999OKUjJCmsq0na c5LcOFCmjZFny8F8LTIZRU byBeWvH794u6iai4uspeUb pKL3KRCmOEV9YPdrvaHkcn T0ZWuzzAMrSwA0BZaseiIv ZKjtlwMsqeDtEjf3UCPuP8 17YBZ0iPyjl9gvDAH6VQXw PDWmVbfzUd2amYViY290AE SsVSVPLWJnjJu5LIUndpUd huGfxAHRe828Y138o1nbVM AsziRupJkAcalpj3tkN589 XHBhcGVydzEyMjQwXHBhcG MfzQE5CLOrBE1nzdvrFQze AMnkCQAurhM7WVMnwUReA7 EpUIWaIS2rmnzpJAA9FDac KQJePKO5NaHwOQIss2Pope i3CxHlfe8umg55CSA7m3At vYlmGBT9RIC2HsLhXj3ikW HcKQEdPD2lLqTjbSWvDZZu yh45kBrgBTyfaiXvhI0pPn VbGOCffWVoKOEiDX0seAOe FFLkuO6uwyfwBCMsRoWujt udVDGeiOwyosHbRb3ywYnj PGZ5YAdeB6xssX1wChY6MU yzZ6csjN5xFFz8FJjmcQP6 KXWyjC3kDS2zkbbuh2ncQQ tfVXhbZSGayzA4hiM4UZRz xXRlE5NkoV5fROIhNK8wlt gxe4imFSY9LXwaENFeBAJ9 MwUxTDKnd2Tkavi2LvPms3 BbqLAfMXvtB45te130GYGc gqHeN8bsvOCiklwdtFGdqt hlSQpjbxS8UZDeESMhJByb XGYxXGZzMjBcbGFuZzEwMz NcaGljaFxmMVxkYmNoXGYx RPwjX3wdGzQyO5IyXYFrCa BuaGAjOPeqbRK9QQUmIKMa z12cwNr2YFGlwynjo6SuSM GxsWQnfGVeaS8prbLzy4dq LFTdLIXgNVQkI8JfPJK3rJ LpUYZwnJQiuTW8XG9rvmBj TU7eSIWrDtnfeqYvqFQxfl JuRJJwSNfpl9sqYP1lAVIq yMebmZ2ihLN8JZRdp7cqrO JfxANzy3voh4RriyRpRUnj HZFrYZpeUIUgYKJgSC3sVB QveIIisgIfe3N3ThtksFKr wyacZoypqfG7DCdtnbmjXL JgQXyxI5dmGxBqYLJrfYrm Mpvua4ZzEMNrUWTbEszhoN FyfX0= Final Diagnosis Comment w9rdbGYkRHYguKMhQvVcWX (test code = NkMBLnh9grDUPswGZnWpZg 5843389009) MzNcZnRuYmpcdWMxXGRlZm Ijz6jwq691cOWph2fjZWRs VyV9fEAiDTWxmJUoD158z4 clc3jtoqJluBS9TPPoKUQ0 CQwnstYhasU7SAcdeNSwWv I8JBwkazPhYOwsmuVweoNz Fzx8KRZbW277BVG5aGyhd9 irRRA5PIMjRHBdLqHdPs6e hROhT629FELhCXGQXYBzzH u4EDOxziXbapRgiYUAd190 Z126j2kzJSNekjKiaAfNzq lxv2tgR048POTccTTihaFa NpQiBBEqmOVxdHI0RARhPN 3ymdwmEPT6UBlrFUGcvkRm WCEqkLSyR2L3TbTtcDXjN9 ApPRmoAUEhwpv5XhWfQl8c bCIikNG4NHllz0yuw3mujV JaXsj2NBYlYsHqAnbmPIri v7Mkr5rkMAOdew1mBBV5fC YnpJiwn6E3vHHlHKOtkTUa kpTuDLShClX2WFqrXR2zpf 15GTBsODX1go5liEKplRbw cqAzrRYtXJimH8YuPGDqa5 29SVRtY0PdBHGhs6Y3bmXx ThFsKTCwqWL5grC5DWZkRV y2nRBehjV7okFkkZXwN8py cS9pKKldDA0gineqn3pvWN L3CTrmJVLjsEL8roaxDEbt SERiHvL2zrUneKFbHGTpfB uaJXceb506GQZ3YbEfKYLu h4NdL2EklMmdT60thVigG8 4dZBRosBwjnS4fzXeexZ3c ZjBcZnMyNFxxbFxwbGFpbl xmMFxmczIwXGxhbmcxMDMz PYgnI1deBaDnJUPjhXjaEZ dpi3EwXWGsEOIwKrMfQ16l NBTdu5nmg6AysNc0DWNgnX 4xvIMdeQR5jT6bZBgvzQtw wHXkLZ7shT4myxTouKOjJH Y4dv9spKgcdzkzXvS4EBw0 rKUdm5Z9sIYiZCCvMJFmnH KhjK4gHQYfm72mqKV9UP14 HCrjsNjoIE4crCIdTI7rOp 3bgJPgqVoySP72QWPdsEql MKugAG70rYMbMHNnILnyAM J9 Clinical Information Clinical Hx: ?Total (test code = colectomy complicated [id number]) . Requested per consulting surgery team. Gross Description (test i2hjaIDeERBsdVCxRySlDF code = 6640197420) QoGBHmu7mdYQAinPEoHtOs MzNcZnRuYmpcdWMxXGRlZm Akn2ecq401aRGix3zkNEUj GhS6fJSoPVSywLOwW546c6 rrl7bvcjFwsNL7SMGxUXW5 SNqikfNuuoK5LZjbkRZmBb E8VNjwyyHsZZvejuIbwtCm Xle0MSLrK350SGT2wQqnj0 cpPRG8HBEjNSUqOrMtPr5x zBDnD262WPPrJKODCFYdiR t1NCBiapZngqEjrIMYv279 G859m3pnQFOupsYtbNeDmb ogm9cgX206FSFrnRMuakXr VwYpSPZhfRFteNP0EEGvCF 9kcjcwJJZ5GIwyQRWkysXv XOXnoCCwK2Y4VaWlkWCdK5 MwGEehEYCuuyw7SdQrZs8s tPSgjLP7TMbjh8rde4draQ IdBne2PODsAbUgQysqDEsi q3Nyr4krSNRnny5pILS2sD SqgUsgd6E6aORsNLLtfJUr qzRmXCNjIaQ7MHzgMY1foh 08FCDbBCU6lx2byVYquXtx btKpgIDzPPlsH9AkWIOho9 18IHUaP7OdEFYvt0N4shZx ApLoGZOkuFC5mcT1UBSkBE e5xLUfqcE6uaIqaFOpF7bm vE4wFCvmXI7krrtml5utAS Y8HNrcHDObtYZ1lgycSIrj DTBmYoM5dkAnaEMrTALmiA dwATrtm730RSZ1AvXtOEEr l8RvT0WjxKrnI84esZfaS7 2tDHFpyOyboV7riQkkgW4g ZjBcZnMyNFxxbFxwbGFpbl xmMFxmczIwXGxhbmcxMDMz COkpW5diVaAgEPJlrVgxFR ess1OfRTVvIIOuMkHcQJAs FNKSBNYTMmChSPuTFbC9MI INO1MQE8AMOLNDKAUpAsoN JXZvcZDhRQSxG1LllvRbMI PdJGYfKLvzGFBoQEDxG6Fd t3SndRZnbW81OGNbvOdnYI xwYXIgUHJlcGFyZWQgMiBz qSzxTJLhSDPiRUVsHP0jM0 2pOO51GBQ0jG3btGkrGQSi lxOcTVQMj83ana21b7v0WW Y8zZ1fcFalCWHqOPBqkfC9 cG2eZXmuTPU5 Embedded Images (test code = 8759592112) [facility] [id number] 13:05:21EXAM: XR CHEST 1 VW HISTORY: post [...] noted yesterday. ? [facility], Radiant Results Inft - 04/17/2020 8:06 AM CDTEXAM: XR CHEST [...] the chest is little different than noted yesterday.[facility]CBC WITH [id number] 11:18:00 Test Item Value Reference Range Interpretation Comments WBC (test code = See_Comment H [Automated 1590-2) message] The system which generated this result transmit dain reference range : 4.20 - 10.70 10*3/?L. The reference range was not used to interpret this result as normal/abnormal . RBC (test code = See_Comment L [Automated 329-8) message] The system which generated this result [...] RDW-SD (test code = 47.8 fL 38.5-51.6 80985-3) RDW-CV (test code = 14.7 % 12.1-15.4 788-0) PLT (test code = See_Comment HH [Automated 777-3) message] The system which generated this result transmit dain reference range : 150 - 328 10*3/ ?L. The reference range was not u sed to interpret th is result as normal/abnormal . MPV (test code = 9.9 fL 9.8-13 83236-5) NRBC/100 WBC (test See_Comment [Automat ed code = 6803782096) message] The system which generated this result transmit dain reference range : 0.0 - 10.0 /100 WBCs. The reference range was not used to interpret this result as normal/abnormal . NRBC x10^3 (test code <0.01 See_Comment [Auto mated = 8471232273) message] The system which generated this result transmit dain reference range : 10*3/?L. The reference range was not used to interpret this result as normal/abnormal . GRAN MAT (NEUT) % 81.7 % (test code = 770-8) IMM GRAN % (test code 1.10 % = 7558509788) LYMPH % (test code = 9.1 % 736-9) MONO % (test code = 7.3 % 5905-5) EOS % (test code = 0.5 % 713-8) BASO % (test code = 0.3 % 706-2) GRAN MAT x10^3(ANC) 10.91 10*3/uL 1.99-6.95 H (test code = 4625671739) IMM GRAN x10^3 (test 0.15 10*3/uL 0-0.06 H code = 4047548166) LYMPH x10^3 (test code 1.21 10*3/uL 1.09-3.23 = 731-0) MONO x10^3 (test code 0.97 10*3/uL 0.36-1.02 = 742-7) EOS x10^3 (test code = 0.07 10*3/uL 0.06-0.53 711-2) BASO x10^3 (test code 0.04 10*3/uL 0.01-0.09 = 704-7) Lab Interpretation Abnormal (test code = 63201-7) [facility] METABOLIC PANEL (NA, K, CL, CO2, GLUCOSE, BUN, CREATININE, CA)2020-04-17 10:49:00 Test Item Value Reference Range Interpretation Comments NA (test code = 134 mmol/L 135-145 L 5054793926) K (test code = 4.2 mmol/L 3.5-5 3927646822) CL (test code = 103 mmol/L 98-108 1142650700) CO2 TOTAL (test code = 26 mmol/L 23-31 3288100370) AGAP (test code = 2-16 4509244647) BUN (test code = 12 mg/dL 7-23 3259468625) GLUCOSE (test code = 107 mg/dL 70-110 4408187552) CREATININE (test code = 0.74 mg/dL 0.6-1.25 2830129020) CALCIUM (test code = 7.8 mg/dL 8.6-10.6 L 6224825013) eGFR Calculation mL/min/1.73m2 (Non-) (test code = 0248142933) eGFR Calculation mL/min/1.73m2 () (test code = 4204982422) GILBERTO (test code = GILBERTO) Association of [...] tests). Lab Interpretation Abnormal (test code = 53102-6) [facility]2020-08-25 10:49:00 Test Item Value Reference Range Interpretation Comments MAGNESIUM (test code = 0066061680) 2.3 mg/dL 1.7-2.4 Lab Interpretation (test code = Normal 28619-8) [facility]PHOS[facility]2020-08-25 10:49:00 Test Item Value Reference Range Interpretation Comments PHOSPHORUS (test code = 7193986057) 3.8 mg/dL 2.5-5 Lab Interpretation (test code = Normal 59696-8) [facility] CampusLD TOTAL BODY [id number] 00:37:00 Test Item Value Reference Range Interpretation Comments LDH BF (test code = 3707 U/L 2728527105) UNSPUN BODY FLUID Light Yellow COLOR (test code = 3785091512) UNSPUN BODY FLUID Clear CLARITY (test code = 4503304366) SPUN BODY FLUID Light Yellow COLOR (test code = 5997123730) SPUN BODY FLUID Clear CLARITY (test code = 6794277421) Sediment (test code The sediment volume is 0.1 = 0590495602) mLs of the total fluid volume of 3mLs and its color is white. GILBERTO (test code = Test developed and GILBERTO) characteristics determined by [facility] Laboratory Services. [facility] CampusXR CHEST 1 [id number] 00:22:53 1. ?Left lower lung zone 2 [...] compared to 817 with a possible small pneumothorax.[facility] [place], [place] FLUID DIRECT [id number] 00:10:00 Test Item Value Reference Range Interpretation Comments BF COLOR Light Yellow (test code = 9496327251) BF WBC Count See_Comment [Automated (test code = message] The [employer] stem 6722827851) which generated this result transmitted reference range : /?L. The refere nce range was not u sed to interpret th is result as normal/abnormal . BF RBC Count <3000 See_Comment [Automated (test code = message] The [employer] stem 4174965948) which generated this result transmitted reference range : /?L. The refere nce range was not u sed to interpret th is result as normal/abnormal . GILBERTO (test The reference range code = GILBERTO) and other method performance specifications have not been established for this body fluid. ?The test results must be integrated into the clinical context for interpretation. [facility] [place], [place] FLUID MANUAL [id number] 00:10:00 Test Item Value Reference Range Interpretation Comments BF SEGS (test code = 7076494169) 78 % MACROPHAGE (test code = 8531320148) 22 % #CELS CNTD (test code = 1632266098) [facility] CampusAmylase Body [id number] 00:03:00 Test Item Value Reference Range Interpretation Comments AMYLASE BF (test 313 U/L code = 2163643701) UNSPUN BODY FLUID Yellow COLOR (test code = 8771462804) UNSPUN BODY FLUID Clear CLARITY (test code = 9326258859) SPUN BODY FLUID Yellow COLOR (test code = 2611651690) SPUN BODY FLUID Clear CLARITY (test code = 5225257836) Sediment (test code The sediment volume is = 7226282352) <0.1 mLs of the total fluid volume of 1mL and its color is red. GILBERTO (test code = Test developed and GILBERTO) characteristics determined by [facility] Laboratory Services. [facility] CampusGlucose Body [id number] 00:03:00 Test Item Value Reference Range Interpretation Comments GLUCOSE BF (test 57 mg/dL code = 7800554405) UNSPUN BODY FLUID Yellow COLOR (test code = 0439258177) UNSPUN BODY FLUID Clear CLARITY (test code = 5274183545) SPUN BODY FLUID Yellow COLOR (test code = 7473596504) SPUN BODY FLUID Clear CLARITY (test code = 9984387212) Sediment (test code The sediment volume is = 5611644040) <0.1 mLs of the total fluid volume of 1mL and its color is red. GILBERTO (test code = Test developed and GILBERTO) characteristics determined by [facility] Laboratory Services. [facility] CampusTotal Protein Body [id number] 00:03:00 Test Item Value Reference Range Interpretation Comments T.PROT BF (test 3000.0 mg/dL code = 3324556108) UNSPUN BODY FLUID Yellow COLOR (test code = 8211321701) UNSPUN BODY FLUID Clear CLARITY (test code = 5818169034) SPUN BODY FLUID Yellow COLOR (test code = 0132108623) SPUN BODY FLUID Clear CLARITY (test code = 8831780970) Sediment (test code The sediment volume is = 3534165893) <0.1 mLs of the total fluid volume of 1mL and its color is red. GILBERTO (test code = Test developed and GILBERTO) characteristics determined by [facility] Laboratory Services. [facility] CampusPH, Body [id number] 23:56:00 Test Item Value Reference Range Interpretation Comments PH BF (test code = 7363507820) UNSPUN BODY FLUID COLOR Light Yellow (test code = 8016747006) UNSPUN BODY FLUID Clear CLARITY (test code = 4202886468) SPUN BODY FLUID COLOR Light Yellow (test code = 2682084807) SPUN BODY FLUID CLARITY Clear (test code = 5195896860) Sediment (test code = The sediment volume is 5088452018) 0.1 mLs of the total fluid volume of 5.5mLs and its color is white/red. [facility] CampusIR DRAINAGE BY CATHETER PERITONEAL OR [id number] 21:10:26 Successful placement of a 12 Palauan drain in the left upper quadrantcollection. Successful placement of a 14 Palauan drain in the midline air fluidcollection. Successful placement of a 10 Palauan drain in the right lower quadrant fluidcollection. [...] performingthe procedure. Please refer to [facility] regarding sedation time. RADIATION DOSE: 1957 mGy - cm. TECHNIQUE: The risks, benefits and alternatives were discussed and informed consentwas obtained. Prior to beginning the procedure, York Protocol was usedto confirm the patient's identity and planned procedure. Maximum sterilebarriers including cap, mask, hand hygiene, sterile gloves, sterile gown,large sterile drape and cutaneous antisepsis were used. The anteriorabdominal wall was sterilely prepped, and draped. The skinoverlying the left upper, right upper, andright lower quadrants wasinfiltrated with lidocaine 2%. The targeted collection in the left upper quadrant was then accessed with f64-sgvmm quadrant needle using CT guidance. A 0.035 Amplatz wire wasadvanced through the coaxial needle. The tract was serially dilated to 12French. A pigtail 12 Palauan catheter was placed in the left upper quadrantcollection. Approximately, 210 cc of purulent fluid was removed. The air-fluid collection in the mid abdomen was accessed through the rightupper quadrant. An 18 Palauan pigtail catheter was placed in this collectionunder CT guidance in a similar fashion to thedrain and left upperquadrant. Approximately, 1250 cc of purulent material were removed. The fluid collection in the right lower quadrant was also accessed in asimilar fashion. A 10 Palauan pigtail catheter was placed in this collectionunder [...] aspirated at the time of the procedure. [facility], Radiant Results Inft User - 04/16/2020 4:11 PM CDTEXAMINATION: PERCUTANEOUS ASPIRATIONHISTORY: 50-year-old male with postoperative abdominal fluid collections SEDATION: Moderate sedation was administered under the supervision of atrained nurse specialist who was independent from those actually performingthe procedure. Please refer to [facility] regarding sedation time.RADIATION DOSE: 1957 mGy - cm.TECHNIQUE: The risks, benefits and alternatives were d iscussed and informed consentwas obtained. Prior to beginning the procedure, York Protocol was usedto confirm the patient's identity [...] serially dilated to 12French. A pigtail 12 Palauan catheter was placed in the left upper quadrantcollection. Approximately, 210 cc of purulent fluid was removed.The air-fluid collection in the mid abdomen was accessed through the rightupper quadrant. An 18 Palauan pigtail catheter was placed in this collectionunder CT guidance in a similar fa shion to the drain and left upperquadrant. Approximately, 1250 cc of purulent material were removed.The fluid collection in the right lower quadrant was also accessed in asimilar fashion. A 10 Palauan pigtail catheter was placed in this collectionunder [...] left upper quadrantcollection.Successful placement of a 14 Palauan drain in the midline air fluidcollection.Successful placement of a 10 Palauan drain in the right lower quadrant fluidcollection.Preliminary [...] [facility] CampusPROTHROMBIN TIME / [id number] 16:38:00 Test Item Value Reference Range Interpretation Comments PROTIME PATIENT (test See_Comment H [Auto mated message] code = 5964-2) The system [employer] generated this result transmitted ref erence range: 10.1 - 1 2.6 Seconds. The reference range was not used to int erpret this result as normal/abnormal . INR (test code = 6301-6) Nor mal INR <1.1; Warfarin Therap eutic range 2.0 to 3. 0 or 2.5 to 3.5, dep ending upon the indica tions. Lab Interpretation (test Abnormal code = 67143-2) [facility] CampusCT ABDOMEN PELVIS W [id number] 13:40:08Impression: 1. ?Interval placement of 4 percutaneous [...] degenerative changes and no suspicious focal lesions. [facility], Radiant Results Inft User - 04/16/2020 8:41 [...] ostomy.[facility] CampusBASI METABOLIC PANEL (NA, K, CL, CO2, GLUCOSE, BUN, CREATININE, CA)2020-04-16 10:51:00 Test Item Value Reference Range Interpretation Comments NA (test code = 132 mmol/L 135-145 L 5198017512) K (test code = 4.1 mmol/L 3.5-5 4270039001) CL (test code = 103 mmol/L 98-108 4507643785) CO2 TOTAL (test code = 24 mmol/L 23-31 9381373736) AGAP (test code = 2-16 6557596424) BUN (test code = 13 mg/dL 7-23 9193408195) GLUCOSE (test code = 132 mg/dL 70-110 H 8481789767) CREATININE (test code = 0.77 mg/dL 0.6-1.25 0487049934) CALCIUM (test code = 7.4 mg/dL 8.6-10.6 L 1162681168) eGFR Calculation mL/min/1.73m2 (Non-) (test code = 6704675190) eGFR Calculation mL/min/1.73m2 () (test code = 8138440060) GILBERTO (test code = GILBERTO) Association of [...] tests). Lab Interpretation Abnormal (test code = 92015-6) [facility] CampusMAGNESIUM2020-08-24 10:51:00 Test Item Value Reference Range Interpretation Comments MAGNESIUM (test code = 9088323498) 2.2 mg/dL 1.7-2.4 Lab Interpretation (test code = Normal 16418-5) [facility] CampusPHOSPHORUS2020-08-24 10:51:00 Test Item Value Reference Range Interpretation Comments PHOSPHORUS (test code = 5467752230) 3.1 mg/dL 2.5-5 Lab Interpretation (test code = Normal 94501-6) [facility] CampusCB WITH [id number] 10:37:00 Test Item Value Reference Range Interpretation Comments WBC (test code = See_Comment H [Automated 8490-2) message] The system which generated this result [...] RDW-SD (test code = 47.4 fL 38.5-51.6 00044-4) RDW-CV (test code = 14.7 % 12.1-15.4 788-0) PLT (test code = See_Comment H [Automated 777-3) message] The system which generated this result transmit dain reference range : 150 - 328 10*3/ ?L. The reference range was not u sed to interpret th is result as normal/abnormal . MPV (test code = 10.1 fL 9.8-13 23244-6) NRBC/100 WBC (test See_Comment [Automat ed code = 2573978745) message] The system which generated this result transmit dain reference range : 0.0 - 10.0 /100 WBCs. The reference range was not used to interpret this result as normal/abnormal . NRBC x10^3 (test code <0.01 See_Comment [Auto mated = 7111067652) message] The system which generated this result transmit dain reference range : 10*3/?L. The reference range was not used to interpret this result as normal/abnormal . GRAN MAT (NEUT) % 83.0 % (test code = 770-8) IMM GRAN % (test code 1.50 % = 8149463623) LYMPH % (test code = 7.6 % 736-9) MONO % (test code = 7.3 % 5905-5) EOS % (test code = 0.3 % 713-8) BASO % (test code = 0.3 % 706-2) GRAN MAT x10^3(ANC) 11.53 10*3/uL 1.99-6.95 H (test code = 6323555408) IMM GRAN x10^3 (test 0.21 10*3/uL 0-0.06 H code = 8049598096) LYMPH x10^3 (test code 1.05 10*3/uL 1.09-3.23 L = 731-0) MONO x10^3 (test code 1.01 10*3/uL 0.36-1.02 = 742-7) EOS x10^3 (test code = 0.04 10*3/uL 0.06-0.53 L 711-2) BASO x10^3 (test code 0.04 10*3/uL 0.01-0.09 = 704-7) Lab Interpretation Abnormal (test code = 76971-3) [facility] METABOLIC PANEL (NA, K, CL, CO2, GLUCOSE, BUN, CREATININE, CA)2020-04-15 11:01:00 Test Item Value Reference Range Interpretation Comments NA (test code = 132 mmol/L 135-145 L 7157785445) K (test code = 4.7 mmol/L 3.5-5 8050459138) CL (test code = 103 mmol/L 98-108 4600293656) CO2 TOTAL (test code = 22 mmol/L 23-31 L 5791817243) AGAP (test code = 2-16 1135057136) BUN (test code = 14 mg/dL 7-23 7467909364) GLUCOSE (test code = 114 mg/dL 70-110 H 4837563629) CREATININE (test code = 0.74 mg/dL 0.6-1.25 1007695832) CALCIUM (test code = 7.9 mg/dL 8.6-10.6 L 7232784769) eGFR Calculation mL/min/1.73m2 (Non-) (test code = 7541872377) eGFR Calculation mL/min/1.73m2 () (test code = 5460663585) GILBERTO (test code = GILBERTO) Association of [...] tests). Lab Interpretation Abnormal (test code = 41937-8) [facility] CampusMAGNESIUM2020-08-23 11:01:00 Test Item Value Reference Range Interpretation Comments MAGNESIUM (test code = 6537724432) 2.1 mg/dL 1.7-2.4 Lab Interpretation (test code = Normal 46140-9) [facility] CampusPHOSPHORUS2020-08-23 11:01:00 Test Item Value Reference Range Interpretation Comments PHOSPHORUS (test code = 9261345392) 3.4 mg/dL 2.5-5 Lab Interpretation (test code = Normal 27707-3) [facility] CampusCB WITH [id number] 10:46:00 Test Item Value Reference Range Interpretation [...] RDW-SD (test code = 47.7 fL 38.5-51.6 06153-7) RDW-CV (test code = 15.0 % 12.1-15.4 788-0) PLT (test code = See_Comment H [Automated 777-3) message] The system which generated this result transmit dain reference range : 150 - 328 10*3/ ?L. The reference range was not u sed to interpret th is result as normal/abnormal . MPV (test code = 10.4 fL 9.8-13 96303-1) NRBC/100 WBC (test See_Comment [Automat ed code = 5489417519) message] The system which generated this result transmit dain reference range : 0.0 - 10.0 /100 WBCs. The reference range was not used to interpret this result as normal/abnormal . NRBC x10^3 (test code <0.01 See_Comment [Auto mated = 5997402729) message] The system which generated this result transmit dain reference range : 10*3/?L. The reference range was not used to interpret this result as normal/abnormal . GRAN MAT (NEUT) % 85.0 % (test code = 770-8) IMM GRAN % (test code 1.10 % = 3041916213) LYMPH % (test code = 7.2 % 736-9) MONO % (test code = 6.4 % 5905-5) EOS % (test code = 0.1 % 713-8) BASO % (test code = 0.2 % 706-2) GRAN MAT x10^3(ANC) 14.87 10*3/uL 1.99-6.95 H (test code = 4680144393) IMM GRAN x10^3 (test 0.20 10*3/uL 0-0.06 H code = 8114055890) LYMPH x10^3 (test code 1.25 10*3/uL 1.09-3.23 = 731-0) MONO x10^3 (test code 1.11 10*3/uL 0.36-1.02 H = 742-7) EOS x10^3 (test code = <0.03 0.06-0.53 L 711-2) BASO x10^3 (test code 0.03 10*3/uL 0.01-0.09 = 704-7) Lab Interpretation Abnormal (test code = 55897-4) [facility] METABOLIC PANEL (NA, K, CL, CO2, GLUCOSE, BUN, CREATININE, CA)2020-04-14 12:15:00 Test Item Value Reference Range Interpretation Comments NA (test code = 134 mmol/L 135-145 L 9061487959) K (test code = 4.9 mmol/L 3.5-5 7763195023) CL (test code = 105 mmol/L 98-108 7364170979) CO2 TOTAL (test code = 23 mmol/L 23-31 0989738063) AGAP (test code = 2-16 7024302809) BUN (test code = 16 mg/dL 7-23 1049478235) GLUCOSE (test code = 102 mg/dL 70-110 4321908874) CREATININE (test code = 0.82 mg/dL 0.6-1.25 5674669721) CALCIUM (test code = 7.9 mg/dL 8.6-10.6 L 6347034032) eGFR Calculation mL/min/1.73m2 (Non-) (test code = 8858724158) eGFR Calculation mL/min/1.73m2 () (test code = 7603311824) GILBERTO (test code = GILBERTO) Association of [...] tests). Lab Interpretation Abnormal (test code = 34986-5) [facility]MAG[facility]2020-08-22 12:15:00 Test Item Value Reference Range Interpretation Comments MAGNESIUM (test code = 7909947445) 2.1 mg/dL 1.7-2.4 Lab Interpretation (test code = Normal 13037-8) [facility]PHOSPHORUS2020-08-22 12:15:00 Test Item Value Reference Range Interpretation Comments PHOSPHORUS (test code = 0127920674) 4.2 mg/dL 2.5-5 Lab Interpretation (test code = Normal 49647-1) [facility]CB WITH [id number] 11:49:00 Test Item Value Reference Range Interpretation [...] RDW-SD (test code = 48.1 fL 38.5-51.6 89578-3) RDW-CV (test code = 15.1 % 12.1-15.4 788-0) PLT (test code = See_Comment H [Automated 777-3) message] The system which generated this result transmit dain reference range : 150 - 328 10*3/ ?L. The reference range was not u sed to interpret th is result as normal/abnormal . MPV (test code = 10.7 fL 9.8-13 44688-6) NRBC/100 WBC (test See_Comment [Automat ed code = 7260255950) message] The system which generated this result transmit dain reference range : 0.0 - 10.0 /100 WBCs. The reference range was not used to interpret this result as normal/abnormal . NRBC x10^3 (test code <0.01 See_Comment [Auto mated = 1131922379) message] The system which generated this result transmit dain reference range : 10*3/?L. The reference range was not used to interpret this result as normal/abnormal . GRAN MAT (NEUT) % 84.4 % (test code = 770-8) IMM GRAN % (test code 1.10 % = 2487813732) LYMPH % (test code = 7.4 % 736-9) MONO % (test code = 6.8 % 5905-5) EOS % (test code = 0.1 % 713-8) BASO % (test code = 0.2 % 706-2) GRAN MAT x10^3(ANC) 13.45 10*3/uL 1.99-6.95 H (test code = 3264497379) IMM GRAN x10^3 (test 0.18 10*3/uL 0-0.06 H code = 7192319199) LYMPH x10^3 (test code 1.18 10*3/uL 1.09-3.23 = 731-0) MONO x10^3 (test code 1.09 10*3/uL 0.36-1.02 H = 742-7) EOS x10^3 (test code = <0.03 0.06-0.53 L 711-2) BASO x10^3 (test code 0.03 10*3/uL 0.01-0.09 = 704-7) Lab Interpretation Abnormal (test code = 94103-6) [facility] TOTAL BODY [id number] 01:27:00 Test Item Value Reference Range Interpretation Comments LDH BF (test code = >6450 U/L 8040766419) UNSPUN BODY FLUID Yellow COLOR (test code = 4845888750) UNSPUN BODY FLUID Turbid CLARITY (test code = 8536987858) SPUN BODY FLUID Yellow COLOR (test code = 8201079807) SPUN BODY FLUID Clear CLARITY (test code = 0091309192) Sediment (test code The sediment volume is 0.1 = 3102725497) mLs of the total fluid volume of 5mLs and its color is Red/White. GILBERTO (test code = Test developed and GILBERTO) characteristics determined by [facility] Laboratory Services. [facility] (NA, K, CL, CO2, GLUCOSE, BUN, CREATININE, CA)2020-04-14 00:15:00 Test Item Value Reference Range Interpretation Comments NA (test code = 132 mmol/L 135-145 L 4267527530) K (test code = 5.3 mmol/L 3.5-5 H 7436175793) CL (test code = 105 mmol/L 98-108 5332108715) CO2 TOTAL (test code = 20 mmol/L 23-31 L 9979424172) AGAP (test code = 2-16 8593898330) BUN (test code = 14 mg/dL 7-23 9390467263) GLUCOSE (test code = 280 mg/dL 70-110 H 0432693039) CREATININE (test code = 0.75 mg/dL 0.6-1.25 9816607290) CALCIUM (test code = 7.4 mg/dL 8.6-10.6 L 4499575735) eGFR Calculation mL/min/1.73m2 (Non-) (test code = 7605200820) eGFR Calculation mL/min/1.73m2 () (test code = 0827397721) GILBERTO (test code = GILBERTO) Association of [...] tests). Lab Interpretation Abnormal (test code = 37233-2) [facility] WITHOUT [id number] 00:01:00 Test Item Value Reference Range Interpretation Comments WBC (test code = 6690-2) See_Comment H [A utomated message] The system [employer] generated this result transmit dain reference range : 4.20 - 10.70 10*3/?L. The reference range was not used to interpret this result as normal/abnormal . RBC (test code = 789-8) See_Comment L [Au tomated message] The system [employer] generated this result transmit dain reference range [...] See_Comment H [Au tomated message] The system [employer] generated this result transmit dain reference range : 150 - 328 10*3/?L. The reference range was not used to interpret this result as normal/abnormal . MPV (test code = 10.2 fL 9.8-13 68371-9) RDW-CV (test code = 15.3 % 12.1-15.4 788-0) RDW-SD (test code = 49.1 fL 38.5-51.6 31142-4) NRBC x10^3 (test code = <0.01 See_Comment [Au tomated message] 0273937014) The system [employer] generated this result transmit dain reference range : 10*3/?L. The reference range was not used to interpret this result as normal/abnormal . NRBC/100 WBC (test code See_Comment [Au tomated message] = 6098995026) The system [facility] generated this result transmit dain reference range : 0.0 - 10.0 /100 WBC s. The reference r meredith was not used to interpret this result as normal/abnormal . IPF % (test code = 2142420635) Lab Interpretation (test Abnormal code = 24851-4) [facility] CampusB[facility] FLUID DIRECT [id number] 23:40:00 Test Item Value Reference Range Interpretation Comments BF COLOR Yellow (test code = 9303761558) BF WBC Count See_Comment [Automated (test code = message] The sy stem 0828257617) which generated this result transmitted reference range : /?L. The refere nce range was not u sed to interpret th is result as normal/abnormal . BF RBC Count <3000 See_Comment [Automated (test code = message] The sy stem 3435672884) which generated this result transmitted reference range [...] [facility] MANUAL [id number] 23:40:00 Test Item Value Reference Range Interpretation Comments BF SEGS (test code 99 % = 6548765117) BF LYMPHS (test 1 % code = 6961107609) #CELS CNTD (test code = 9747648952) GILBERTO (test code = Possible intracellular GILBERTO) bacteria. [facility] CampusGLUCOSE BODY [id number] 23:17:00 Test Item Value Reference Range Interpretation Comments GLUCOSE BF (test <20 mg/dL code = 2560258596) UNSPUN BODY FLUID Yellow COLOR (test code = 9880251733) UNSPUN BODY FLUID Turbid CLARITY (test code = 2248559163) SPUN BODY FLUID Yellow COLOR (test code = 0811162272) SPUN BODY FLUID Clear CLARITY (test code = 0008925548) Sediment (test code The sediment volume is 0.1 = 6560556325) mLs of the total fluid volume of 5mLs and its color is Red/White. GILBERTO (test code = Test developed and GILBERTO) characteristics determined by [facility] Laboratory Services. [facility] CampusT.PROTEIN BODY [id number] 22:52:00 Test Item Value Reference Range Interpretation Comments T.PROT BF (test 3000.0 mg/dL code = 9818187006) UNSPUN BODY FLUID Yellow COLOR (test code = 5865699008) UNSPUN BODY FLUID Turbid CLARITY (test code = 1339435181) SPUN BODY FLUID Yellow COLOR (test code = 1953006490) SPUN BODY FLUID Clear CLARITY (test code = 0163098902) Sediment (test code The sediment volume is 0.1 = 0324243336) mLs of the total fluid volume of 5mLs and its color is Red/White. GILBERTO (test code = Test developed and GILBERTO) characteristics determined by [facility] Services. [facility] CampusURINE [id number] 19:44:00 Test Item Value Reference Range Interpretation Comments URINE CULTURE (test No aerobic growth (< code = 630-4) 1000 CFU/mL) [facility] CampusGRAM NEGATIVE BLOOD PATHOGENS DNA VCTNT-[id number] 13:23:00 Test Item Value Reference Range Interpretation Comments Enterobacter species Positive Negative A (test code = 05860-7) GILBERTO (test code = GILBERTO) See blood culture result for additional information. ?Testing included eight identification and six resistance marker targets. Lab Interpretation Abnormal (test code = 20030-2) [facility] WITH [id number] 12:43:00 Test Item Value Reference Range Interpretation Comments WBC (test code = See_Comment H [Automated 4490-2) message] The system which generated this result [...] RDW-SD (test code = 49.8 fL 38.5-51.6 75788-0) RDW-CV (test code = 15.3 % 12.1-15.4 788-0) PLT (test code = See_Comment H [Automated 777-3) message] The system which generated this result transmit dain reference range : 150 - 328 10*3/ ?L. The reference range was not u sed to interpret th is result as normal/abnormal . MPV (test code = 10.7 fL 9.8-13 89824-0) NRBC/100 WBC (test See_Comment [Automat ed code = 1756131140) message] The system which generated this result transmit dain reference range : 0.0 - 10.0 /100 WBCs. The reference range was not used to interpret this result as normal/abnormal . NRBC x10^3 (test code <0.01 See_Comment [Auto mated = [id number]) message] The system which generated this result transmit dain reference range : 10*3/?L. The reference range was not used to interpret this result as normal/abnormal . GRAN MAT (NEUT) % 81.3 % (test code = 770-8) IMM GRAN % (test code 1.40 % = 8062279422) LYMPH % (test code = 8.0 % 736-9) MONO % (test code = 8.9 % 5905-5) EOS % (test code = 0.2 % 713-8) BASO % (test code = 0.2 % 706-2) GRAN MAT x10^3(ANC) 10.74 10*3/uL 1.99-6.95 H (test code = 6796596452) IMM GRAN x10^3 (test 0.18 10*3/uL 0-0.06 H code = 4283728564) LYMPH x10^3 (test code 1.06 10*3/uL 1.09-3.23 L = 731-0) MONO x10^3 (test code 1.17 10*3/uL 0.36-1.02 H = 742-7) EOS x10^3 (test code = <0.03 0.06-0.53 L 711-2) BASO x10^3 (test code <0.03 0.01-0.09 = 704-7) Lab Interpretation Abnormal (test code = 16202-5) [facility] METABOLIC PANEL (NA, K, CL, CO2, GLUCOSE, BUN, CREATININE, CA)2020-04-13 11:57:00 Test Item Value Reference Range Interpretation Comments NA (test code = 134 mmol/L 135-145 L 6635285386) K (test code = 4.6 mmol/L 3.5-5 8255305655) CL (test code = 106 mmol/L 98-108 5335738960) CO2 TOTAL (test code = 23 mmol/L 23-31 6270618498) AGAP (test code = 2-16 1823363483) BUN (test code = 14 mg/dL 7-23 6778860512) GLUCOSE (test code = 106 mg/dL 70-110 1948469176) CREATININE (test code = 0.84 mg/dL 0.6-1.25 5994516326) CALCIUM (test code = 7.7 mg/dL 8.6-10.6 L 1856669701) eGFR Calculation mL/min/1.73m2 (Non-) (test code = 4225683890) eGFR Calculation mL/min/1.73m2 () (test code = 0987365552) GILBERTO (test code = GILBERTO) Association of [...] tests). Lab Interpretation Abnormal (test code = 40846-4) [facility] 11:57:00 Test Item Value Reference Range Interpretation Comments MAGNESIUM (test code = 1489449555) 2.1 mg/dL 1.7-2.4 Lab Interpretation (test code = Normal 79671-7) [facility]2020-08[facility]21 11:57:00 Test Item Value Reference Range Interpretation Comments PHOSPHORUS (test code = 1944519532) 3.4 mg/dL 2.5-5 Lab Interpretation (test code = Normal 55038-0) [facility] PELVIS W [id number] 00:22:08 1. ?Multiple intraperitoneal collections as detailed [...] Comments APPEARANCE (test code = Clear Clear 4206816535) COLOR (test code = Yellow Yellow 7182854749) PH (test code = 4.8-8.0 8590974569) SP GRAVITY (test code = 1.003-1.030 4283878634) GLU U QUAL (test code = Normal Normal 5196936105) BLOOD (test code = Negative Negative 4636748528) KETONES (test code = Negative Negative 1068172116) PROTEIN (test code = 30 mg/dL Negative A 2887-8) UROBILIN (test code = Normal Normal 1726173758) BILIRUBIN (test code = Negative Negative 0701846878) NITRITE (test code = Negative Negative 0956379794) LEUK ROGER (test code = Negative Negative 0394243824) RBC/HPF (test code = See_Comment [Autom ated message] 9078827679) The system [employer] generated this result transmitted ref erence range: 0 - 3 HP F. The reference range was not used to int erpret this result as normal/abnormal . WBC/HPF (test code = <1 See_Comment [Autom ated message] 3234189946) The system [employer] generated this result transmitted ref erence range: 0 - 5 HP F. The reference range was not used to int erpret this result as normal/abnormal . BACTERIA (test code = Negative Negative 5825505006) MUCOUS (test code = Slight Negative LPF A 7100574178) SQ EPITH (test code = See_Comment [Auto mated message] 5250418379) The system [employer] generated this result transmitted ref erence range: <=2 HPF. The reference range was not used to int erpret this result as normal/abnormal . Lab Interpretation (test Abnormal code = 21444-9) [facility] WITH [id number] 12:08:00 Test Item Value Reference Range Interpretation [...] RDW-SD (test code = 48.9 fL 38.5-51.6 01244-7) RDW-CV (test code = 15.4 % 12.1-15.4 788-0) PLT (test code = See_Comment [Automated 777-3) message] The sy stem which generated this result transmitted reference range : 150 - 328 10*3/ ?L. The reference r meredith was not used to interpret this result as normal/abnormal . MPV (test code = 11.2 fL 9.8-13 87534-5) NRBC/100 WBC (test See_Comment [Automat ed code = 3069697427) message] The system which generated this result transmitted reference range : 0.0 - 10.0 /100 WBCs. The refer ence range was not u sed to interpret th is result as normal/abnormal . NRBC x10^3 (test code <0.01 See_Comment [Auto mated = 2284587722) message] The s ystem which generated this result transmitted reference range : 10*3/?L. The reference range was not used to interpret this result as normal/abnormal . GRAN MAT (NEUT) % 79.9 % (test code = 770-8) IMM GRAN % (test code 1.30 % = 2129708051) LYMPH % (test code = 7.4 % 736-9) MONO % (test code = 11.0 % 5905-5) EOS % (test code = 0.2 % 713-8) BASO % (test code = 0.2 % 706-2) GRAN MAT x10^3(ANC) 9.56 10*3/uL 1.99-6.95 H (test code = 1532508131) IMM GRAN x10^3 (test 0.15 10*3/uL 0-0.06 H code = 4544151388) LYMPH x10^3 (test code 0.89 10*3/uL 1.09-3.23 L = 731-0) MONO x10^3 (test code 1.32 10*3/uL 0.36-1.02 H = 742-7) EOS x10^3 (test code = <0.03 0.06-0.53 L 711-2) BASO x10^3 (test code <0.03 0.01-0.09 = 704-7) Lab Interpretation Abnormal (test code = 69313-4) [facility] METABOLIC PANEL (NA, K, CL, CO2, GLUCOSE, BUN, CREATININE, CA)2020-04-12 10:43:00 Test Item Value Reference Range Interpretation Comments NA (test code = 133 mmol/L 135-145 L 2407196375) K (test code = 4.3 mmol/L 3.5-5 3905129817) CL (test code = 104 mmol/L 98-108 8818659632) CO2 TOTAL (test code = 22 mmol/L 23-31 L 8339596465) AGAP (test code = 2-16 8010120114) BUN (test code = 20 mg/dL 7-23 1793788326) GLUCOSE (test code = 108 mg/dL 70-110 7268164894) CREATININE (test code = 0.77 mg/dL 0.6-1.25 3737518679) CALCIUM (test code = 8.1 mg/dL 8.6-10.6 L 8795789063) eGFR Calculation mL/min/1.73m2 (Non-) (test code = 8584279098) eGFR Calculation mL/min/1.73m2 () (test code = 4112357413) GILBERTO (test code = GILBERTO) Association of [...] tests). Lab Interpretation Abnormal (test code = 41912-9) [facility]2020-08-20 10:43:00 Test Item Value Reference Range Interpretation Comments MAGNESIUM (test code = 0160488867) 2.0 mg/dL 1.7-2.4 Lab Interpretation (test code = Normal 14136-5) [facility]20 10:43:00 Test Item Value Reference Range Interpretation Comments PHOSPHORUS (test code = 8660187525) 4.3 mg/dL 2.5-5 Lab Interpretation (test code = Normal 41747-2) [facility]BLO[facility] CULTURE [id number] 04:01:00 Test Item Value Reference Range Interpretation Comments Blood Culture-Aerobic No organisms No growth Previo us (test code = 65507-2) isolated prelim inary verified result was Culture [...] Culture-Anaerobic isolated preliminar y (test code = 75762-5) verifi ed result was Culture In Progress [...] CDT Lab Interpretation Normal (test code = 84628-6) [facility] CULTURE [id number] 04:01:00 Test Item Value Reference Range Interpretation Comments Blood Culture-Aerobic No organisms No growth Previo us (test code = 10391-1) isolated prelim inary verified result was Culture [...] Culture-Anaerobic isolated preliminar y (test code = 01646-8) verifi ed result was Culture In Progress [...] CDT Lab Interpretation Normal (test code = 67315-7) [facility] METABOLIC PANEL (NA, K, CL, CO2, GLUCOSE, BUN, CREATININE, CA)2020-04-11 10:13:00 Test Item Value Reference Range Interpretation Comments NA (test code = 138 mmol/L 135-145 4937314843) K (test code = 3.9 mmol/L 3.5-5 8669331294) CL (test code = 106 mmol/L 98-108 5986348288) CO2 TOTAL (test code = 27 mmol/L 23-31 3187668909) AGAP (test code = 2-16 1724328216) BUN (test code = 24 mg/dL 7-23 H 8087950522) GLUCOSE (test code = 97 mg/dL 70-110 1351878826) CREATININE (test code = 0.63 mg/dL 0.6-1.25 2631366823) CALCIUM (test code = 8.1 mg/dL 8.6-10.6 L 0138315629) eGFR Calculation mL/min/1.73m2 (Non-) (test code = 1096977956) eGFR Calculation mL/min/1.73m2 () (test code = 7418283100) GILBERTO (test code = GILBERTO) Association of [...] tests). Lab Interpretation Abnormal (test code = 32362-4) [facility]2020-08-19 10:13:00 Test Item Value Reference Range Interpretation Comments MAGNESIUM (test code = 6560214472) 1.8 mg/dL 1.7-2.4 Lab Interpretation (test code = Normal 69166-8) [facility]2020-08-19 10:13:00 Test Item Value Reference Range Interpretation Comments PHOSPHORUS (test code = 6758542293) 3.6 mg/dL 2.5-5 Lab Interpretation (test code = Normal 14587-3) [facility] WITH [id number] 10:06:00 Test Item Value Reference Range Interpretation [...] RDW-SD (test code = 48.9 fL 38.5-51.6 89160-8) RDW-CV (test code = 15.3 % 12.1-15.4 788-0) PLT (test code = See_Comment [Automated 777-3) message] The sy stem which generated this result transmitted reference range : 150 - 328 10*3/ ?L. The reference r meredith was not used to interpret this result as normal/abnormal . MPV (test code = 11.7 fL 9.8-13 22034-9) NRBC/100 WBC (test See_Comment [Automat ed code = 9539534420) message] The system which generated this result transmitted reference range : 0.0 - 10.0 /100 WBCs. The refer ence range was not u sed to interpret th is result as normal/abnormal . NRBC x10^3 (test code <0.01 See_Comment [Auto mated = 4182220144) message] The s ystem which generated this result transmitted reference range : 10*3/?L. The reference range was not used to interpret this result as normal/abnormal . GRAN MAT (NEUT) % 75.6 % (test code = 770-8) IMM GRAN % (test code 1.10 % = 5962007115) LYMPH % (test code = 10.5 % 736-9) MONO % (test code = 11.0 % 5905-5) EOS % (test code = 1.5 % 713-8) BASO % (test code = 0.3 % 706-2) GRAN MAT x10^3(ANC) 5.56 10*3/uL 1.99-6.95 (test code = 8146855982) IMM GRAN x10^3 (test 0.08 10*3/uL 0-0.06 H code = 8644100023) LYMPH x10^3 (test code 0.77 10*3/uL 1.09-3.23 L = 731-0) MONO x10^3 (test code 0.81 10*3/uL 0.36-1.02 = 742-7) EOS x10^3 (test code = 0.11 10*3/uL 0.06-0.53 711-2) BASO x10^3 (test code <0.03 0.01-0.09 = 704-7) TOXIC CHANGES (test Present A code = 803-7) Lab Interpretation Abnormal (test code = 68036-0) [facility] [id number] 22:00:00 Test Item Value Reference Range Interpretation Comments Case Report (test code Surgical Pathology ? ? = [id number]) ?Case: [id number] ? Authorizing Provider: ?Juventino Mccabe MD ? Collected: ? 04/06/2020 1012 ?Ordering Location: ? ? [facility] ? Received: ?04/06/2020 1146 ? Department ? Pathologist: ? Shaneka Douglas MD ? Specimen: ? ?SOFT TISSUE, OTHER, ileo rectal anastamosis ? Final Diagnosis (test a9jqyOErKOUsv6exVRNhmF code = 7956119998) FuZzEwMzNcZnRuYmpcdWMx GXnuocLyALfqv2EhV1ZjKo AwMFxhbnNpXGRlZmxhbmcx JLMyMTU8bdAhTUCgGGdmWZ EsXXdoRe1whHPhxRefXfBq ADPcb7gopzRQkxgrlBi9o4 ulIBIpXoR4eRWmQUoiO0bx blWutEFgFJNdEUd3iL60OK NwmV1itZBfJUlrcxZaMiZ9 RPzzWHPqQxF8LEMdvHOuEC HnJ8cfWVKeXZsqBYTaYGwg nMCfGNP1cKreq5K1aCTbyU JwnQawXfKlRqMkCLRUn9Jm SXi3tJymQ2DbTKDaMsC0lF QgUGFyYWdyYXBoIEZvbnQ7 oY57LRggtmJ3yUByz9Urx7 2bq628zD5lvLXhCUB0TXYi NZGxqKGyJMKaEWP2NAOmlA SgT0swUIqpMC8iynxxERQ1 MFxtYXJndDcyMFxtYXJnYj PamRHnKBCtdIzaXKemw162 JOT0BgZyVY8zW3Jbz4S8pM 9maXRcZGVmdGFiNzIwXGZv wp9dkGOmSQqiv2MdSTH0oh X5oPRwgHYcDVHtRB21Qooy j3CjRmgmBWJ1UOXmsjEjo3 Lqq9nwUoMdrcHqS2zaS7Mr ZHJoZWFkXHBnYnJkcmZvb3 Qci7OylMMthNt8q5vlBFJi DBQedVyvw7bsGFI5AGOxQ9 F8gKJbo8fnNDckSCNkiJE5 mzDnKVSrvZWoM9DbmT8sZO hoEJ2pgom6i0ndLpHtRF7p brbib0kfFZveDMVsAJN4Kx InFUBrw8VjwqxdGrHhc2Eu uOPpIMppB20gb771FKVhgj FxD0dbqKPeczrigSGxeybj AHvyrpX3PUKtWCSrQOqjZM YxXGZzMjBcbGFuZzEwMzNc aGljaFxmMVxkYmNoXGYxXG dsF5mrSjGsQaCfWKveFCHp EL6jS34BW57yJXcRLC1dVc KVVGRJRBGFARIUD56IS1gU IUZOPKKaJHLRN26ZFfQMXF AZNDIDI2SAG328BIZocoBv JBIqYC2vPkXHBTHOXYGISH JVECTFWMNFZIXWQRJoV9gP GTVHTiPPI50WJmAHGZeGQs fTCR6EVGgTHkfmRGxVCJPS MVeFFbvaD5FWC8WSEFtPED FORFxwYXIgICAgICAgICBQ OJRLAS5FPCYVF9gkGTCwBS JvDKYrVGXXA6FHDZaPNcTI GGMXVF2ZHLTNRRTRERTFRV VccGFyXHBhclxwbGFpblxm MVxmczIyXGxhbmcxMDMzXG gwU5zjBxEgYVQkvAfkBZqs l8EwHUDuXZDjDktrhhNzFF LaG9zgxCejRCowVGH9LF8t AK9RN5vTLZP5DnM2LhMzWl DaGVL1ClAcPS4siVlbvA7v UgLwXgPaQBstSI0fZYKeN5 txdMWrULIhWAIkV5bcGbKo iG3yvZwsHHlwqyGfGNTxpR CoYVKabg36MBP5HfPjx3Q8 QEHaEfGsGRPkPW4grKflZQ GjJP7zXZIkT6askG8wluz3 FjEcOVGqWsM2HUDpayH3Tb k4OIEaXNzas9eek0FtH8Qg gBJayLy5x1xaBBHyFwN6yR IbBOzpB9qmiuLibBJyYDNp SKu3tRenQoBcRMKqv2gkqi BcZmNoYXJzZXQwIENhbGli ame4hD32SFGttT1apNXmNA yidlHoWfQ1PVapFLTdPvH5 GKAbjXBkAYMyU2yiXRJoEN nlMRWfXAzryWVhADF0bVao d1F4hJIzvMPmfDjmHiWuZh UpUKTGq1QxJTo2kQjgG0Qk KURyHrT3kGTiEBQxPStyRW AzKAZaieG1zA65SBjhigC9 xJJix6Ltx48bk240eE5jmR GgWNX6VCNlHPSukJVdDUAf DUQ0UFXhqAPaL0ryPMMxKX 2oiharBXiaAEazFZMzqVA8 JYZsrIUoT9AnRTIbGYlsAQ Wggyf8FjNgBq6vcFMczOvw WNyoe0zcx1ijhTBoEkt8VU ApZbTdFrqqJUuhq9Puu4un IYFofp3rNYG9zCDlsZivq4 V6zZArJENinCCsrxXuKDJz AgK3WWtcYS6jfm95EDEoVY G6at5kfLFizUvvzkQkoUGk HEwpJ0HhXDAea275AUNcQ2 DvNAOqn9K2mnXmZgDjPOUf xMH5ryD4IBIxOZb7wKAzoj O3viZyvXLlO5yvhB5mXJUk JZ3ralsxd4gvANwpOIsyCJ RnqVJ1eyG2OOVhyLFaH1Kk eZ7oKDYbFDsuSPLpaat0Jp JoZn7wyRIyeUdqHYqjUrif YWdlXHBnbmNvbnRccGduZG VjXHBsYWluXHBsYWluXGYw ASRtXzLmuHnycLdceM0uOe DwBnCbHGiaVU7dPTYhP8pp aUDnTWWcNTWwI3isKiOcvN 9jaFxmMVxjZjJcZnMyMFxw YXIgSSBoYXZlIHBlcnNvbm QkpTyeiuD0rZO1HLOtZTxb DISwHKIooJNqtq8lmRloLX LbNA9vBVHvcvJcMPgxqZsp TTpeYLA4KXOmaMTqsNTeuI FkZSBieSByZXNpZGVudHMs TBCysUwxk1Aon9ApiAS4wH 8vs1zgd3SzKWUezDA5ZJ33 isG5eP1tGPQnNA9tZTCuXR 3mqIEghSLnHZKdu80tjEgl cyByZXBvcnQuXHBsYWluXG YyXGZzMjhcbGFuZzEwMzNc aGljaFxmMlxkYmNoXGYyXG avG0ciMbLsHaKcJMcaOBJ3 fQ== Clinical Information Abdominal distention (test code = [R14.0] 4717880726) Gross Description (test p2gsvIKcBAUrpJHeEcEvJX code = 4339824287) UgVMCbe3quZDCpkNEhQpLv MzNcZnRuYmpcdWMxXGRlZm Yka1lir795sZJwy0gqEAAl OlU0pHEsMSEtnSRnE236YH YdLMyvx5hhq8EmLFTtvJTa r4O3INBEnzfzmPa9rIssI0 2bp5W6QmgpR3poUXTiHNtm ONEhQAjhsEXuBXX0MZObCL Q8ZRdjgiQdnxE4BRrvvGBh HlQ3ZUl1b7eopKzoCLZvGL L4z9enNPjcruThUL3xbo3a mHm3e9phaoJgKITkWZNmhH EODQNuO8JlbAykPp7ciJr3 kEolIqqfQYU4Pbj2BJ1nci 75szd7zVknCJDzhxcdOuS9 LNexMXNwwlbqHBl2OTapIE RhmVYmFZAwwNEoX6KbIQbo OY7krnn2LlMnHB2tuuhlXI qrSQTtODT2YdWxYHReo9Pl xojsWcKqwd7hdz62EQN6a6 NixDniJBK1BQM2HoKtVl4h wTEjQGDaNB8uVbJmeVKuUU Yfmb65nHdeBEgwwxYmjV0b YqBdJHTzoYUnJSOrCT4osR UkNKYpyI1kuqnnWHUpLuIi zvpgJLHbzMcdniFoYe5lsJ mcMEN7CTzrH7dvzR5bPdF4 SNhhB1lwgS5pMBf4TLrxsB L7OTMzaR7fJA8trmwpk7zo RHE5NJqmTLBotcL9tbEsZF ArsRLqF0LrkL94FhPbtZJz H9SneH3dSZdvHTXtiuz2Ls KkKm9yoSQgvVZ6TVbeZfln YWdlXHBnbmNvbnRccGduZG VjXHBsYWluXHBsYWluXGYw BZWaJhPqeJhgmBybbU2fCu BcZnMyMFxwbGFpblxmMFxm czIwIFNwZWNpbWVuIEEgcm FeQQw5IJVaQpGym6ivpVZt LGfiTQW2kDAgIDDuDPDnJV QhPO94Y8GmbjFxEUblZFza tnDuElPnXTMxw06phQP3zB LwwWUbUWreAUPxGZJjN9Cv kKJezkKwzP4zp3SuuqTuEL 9lJHJnpyRnb5ImZL3uQHAl p0EvrFFbpEWhFZYao4SptT lbaaXuJjNdtS9qQVBqccKt v9rnhXFgUV16QABxVEkaAN aarxp9pUKvhdNdgvVoO9ta JpYuxq5mYEYyDGynsHGrqw dpLUwmkoNmBEW6RtLgOPmz HZNlaPwrwO3gIeGdUpHpZH L8DbJwK24jQUnxvPR1AWHk IXOfbvZcc5VbgmPjz1w1oW CyoCPyAJEoE5DnmWPfckLb fI9sy5Zjls2oESQSoYSbk0 Vzu2YooGKbKLWsb1OkjXip cyOyAO4rPKgoSG1dRCRiCI ttxQKang09XOIlXASvbTyi RYNcAJF3q75dg9lcYQOvxP ZvUT0oNUS6bTWliuYzoYY4 bAKpJcWuHPtrfFN3WPQnIT nuHGTOcQZkdHHqDv5hSAHx b46aaCYtdM4mJGZoQSLaRh IcJ23yYbVpmHS2lFLffLao KXluuZOsM7tqDLGcBKGdKe RnDyFwuIC3aBDykiIriSFy PZ5eppkqou1pTLcoQKC1of akP8EpNA6gdnqyinFbIYZl HL8jXL4qDWGgjpRvpPohOT LuTZQxaHPgKNfxZQieF6mc QJKohvC8GOSxhB9qQXFmaH EpFg3eDJBxh89vl8v1FEI1 yERfrW9qfCusRIJeVXH3h3 6nz3urDHG7RGPfAKTdzF7b UrWmBzEmPDltKTDtQE2oRW CoBNSphQEss0WbbTCfiU5w NVNpypAryfUiUGIiiRU2p2 VuKKYkaKFjf3JmOTC9gEPw RZYexrCeEYNwUDKlVA7wgH JvHJIbcBLqr2EjjHK0uIDb STXfD8Cek85kNKTuGFOneW CwkKM3EVDrURMsGTCwcEks zC9vHvXdEmOiMIz2IOOiLF VzOxt6ZYMwKDjfCUYxXIWd MjAgQTQuXHBhclxwYXIgU2 XweOrlvbJab5FmDwwaYWXn WCU1VVCMLEL3JThpn6UoR5 zoWNhtePSdW4olIWKpCKOt RBWqdrCbfBz9NWaqIMQuPM X2AHWGuODunORocHIvmCWd pIWhPVEsgZ8wKGJqiXIiu9 FwoGG1bXGnEMWegfPYGmch XOLjniJyijY0mR6sHZKxmC PoqCPpBNJ0KhOrXO9omxHm aWFjKNWnOMY8pU9mJZ0aHS EvLJvpACIro8TuCJHsYOCv IDGjcoTeqSr1YYdrNOGdjV SsYVYgiiIywOyahW5rBnNm ZnMyMFxwbGFpblxmMVxmcz FsTDRcxAudTFHkmBIyZF2N DEgRKCVrd7frI9yinUTBu3 Upv2EqmxOnLSEfBJotHAZp XGZzMjBccGFyXHFsXHBsYW enSSBhZHRaFeLskRgelO6i ZjBcZnMyMFxwYXJccGFyfQ == Embedded Images (test code = 3778490543) [facility] WITH [id number] 11:29:00 Test Item Value Reference Range Interpretation Comments WBC (test code = See_Comment [Automated 8290-2) message] The sy stem which generated this [...] RDW-SD (test code = 48.8 fL 38.5-51.6 58942-6) RDW-CV (test code = 15.2 % 12.1-15.4 788-0) PLT (test code = See_Comment L [Automated 777-3) message] The sy stem which generated this result transmitted reference range : 150 - 328 10*3/ ?L. The reference r meredith was not used to interpret this result as normal/abnormal . MPV (test code = 11.6 fL 9.8-13 19587-5) NRBC/100 WBC (test See_Comment [Automat ed code = 8989552510) message] The system which generated this result transmitted reference range : 0.0 - 10.0 /100 WBCs. The refer ence range was not u sed to interpret th is result as normal/abnormal . NRBC x10^3 (test code <0.01 See_Comment [Auto mated = 0875594001) message] The s ystem which generated this result transmitted reference range : 10*3/?L. The reference range was not used to interpret this result as normal/abnormal . GRAN MAT (NEUT) % 79.1 % (test code = 770-8) IMM GRAN % (test code 0.50 % = 6771114015) LYMPH % (test code = 11.0 % 736-9) MONO % (test code = 7.8 % 5905-5) EOS % (test code = 1.4 % 713-8) BASO % (test code = 0.2 % 706-2) GRAN MAT x10^3(ANC) 4.67 10*3/uL 1.99-6.95 (test code = 2565765771) IMM GRAN x10^3 (test 0.03 10*3/uL 0-0.06 code = 0939459051) LYMPH x10^3 (test code 0.65 10*3/uL 1.09-3.23 L = 731-0) MONO x10^3 (test code 0.46 10*3/uL 0.36-1.02 = 742-7) EOS x10^3 (test code = 0.08 10*3/uL 0.06-0.53 711-2) BASO x10^3 (test code <0.03 0.01-0.09 = 704-7) Lab Interpretation Abnormal (test code = 55888-8) [facility]00 Test Item Value Reference Range Interpretation Comments MAGNESIUM (test code = 9236409976) 1.7 mg/dL 1.7-2.4 Lab Interpretation (test code = Normal 98076-0) [facility]2020-[facility] 11:19:00 Test Item Value Reference Range Interpretation Comments PHOSPHORUS (test code = 3556847272) 3.0 mg/dL 2.5-5 Lab Interpretation (test code = Normal 31202-9) [facility] CHEST 1 [id number] 13:59:01 Interval extubation and removal of enteric [...] [facility] PAN[facility] (97267) (ALB,T.PRO,BILI T,BU/BC,ALT,AST,ALK PHOS) 2020-04-09 11:52:00 Test Item Value Reference Range Interpretation Comments TOTAL BILI (test code = 6137955519) 1.2 mg/dL 0.1-1.1 H BILI UNCON (test code = 3216035832) 0.8 mg/dL 0.1-1.1 BILI CONJ (test code = 0407570074) 0.0 mg/dL 0-0.3 T PROTEIN (test code = 4005340798) 4.2 g/dL 6.3-8.2 L ALBUMIN (test code = 3010906619) 2.2 g/dL 3.5-5 L ALK PHOS (test code = 5897927144) 36 U/L 34-122 ALTv (test code = 1742-6) 13 U/L 5-50 AST(SGOT) (test code = 7976236485) 23 U/L 13-40 Lab Interpretation (test code = Abnormal 59227-3) [facility] WITH [id number] 10:01:00 Test Item Value Reference Range Interpretation [...] RDW-SD (test code = 47.6 fL 38.5-51.6 72662-0) RDW-CV (test code = 14.8 % 12.1-15.4 788-0) PLT (test code = See_Comment L [Automated 777-3) message] The sy stem which generated this result transmitted reference range : 150 - 328 10*3/ ?L. The reference r meredith was not used to interpret this result as normal/abnormal . MPV (test code = 11.6 fL 9.8-13 62151-8) NRBC/100 WBC (test See_Comment [Automat ed code = 6577194815) message] The system which generated this result transmitted reference range : 0.0 - 10.0 /100 WBCs. The refer ence range was not u sed to interpret th is result as normal/abnormal . NRBC x10^3 (test code <0.01 See_Comment [Auto mated = 8014744556) message] The s ystem which generated this result transmitted reference range : 10*3/?L. The reference range was not used to interpret this result as normal/abnormal . GRAN MAT (NEUT) % 87.5 % (test code = 770-8) IMM GRAN % (test code 0.90 % = 6227418092) LYMPH % (test code = 7.5 % 736-9) MONO % (test code = 3.4 % 5905-5) EOS % (test code = 0.5 % 713-8) BASO % (test code = 0.2 % 706-2) GRAN MAT x10^3(ANC) 5.12 10*3/uL 1.99-6.95 (test code = 6192381226) IMM GRAN x10^3 (test 0.05 10*3/uL 0-0.06 code = 3705125277) LYMPH x10^3 (test code 0.44 10*3/uL 1.09-3.23 L = 731-0) MONO x10^3 (test code 0.20 10*3/uL 0.36-1.02 L = 742-7) EOS x10^3 (test code = 0.03 10*3/uL 0.06-0.53 L 711-2) BASO x10^3 (test code <0.03 0.01-0.09 = 704-7) DOHLE BODIES (test Present A code = 7792-5) TOXIC CHANGES (test Present A code = 803-7) Lab Interpretation Abnormal (test code = 80676-6) [facility] (NA, K, CL, CO2, GLUCOSE, BUN, CREATININE, CA)2020-04-09 09:37:00 Test Item Value Reference Range Interpretation Comments NA (test code = 135 mmol/L 135-145 6798143245) K (test code = 3.6 mmol/L 3.5-5 9478661262) CL (test code = 105 mmol/L 98-108 0804093393) CO2 TOTAL (test code = 31 mmol/L 23-31 8071138120) AGAP (test code = <1 2-16 L 9585364586) BUN (test code = 28 mg/dL 7-23 H 2412032278) GLUCOSE (test code = 95 mg/dL 70-110 8874686706) CREATININE (test code = 0.78 mg/dL 0.6-1.25 7955495663) CALCIUM (test code = 8.1 mg/dL 8.6-10.6 L 1350687855) eGFR Calculation mL/min/1.73m2 (Non-) (test code = 2688102394) eGFR Calculation mL/min/1.73m2 () (test code = 9894273755) GILBERTO (test code = GILBERTO) Association of [...] tests). Lab Interpretation Abnormal (test code = 85495-4) [facility]2020-08-17 09:36:00 Test Item Value Reference Range Interpretation Comments MAGNESIUM (test code = 9285966760) 1.8 mg/dL 1.7-2.4 Lab Interpretation (test code = Normal 63377-2) [facility]2020-08-17 09:36:00 Test Item Value Reference Range Interpretation Comments PHOSPHORUS (test code = 3106404915) 1.8 mg/dL 2.5-5 L Lab Interpretation (test code = Abnormal 46131-0) [facility]AC [facility] 20 + LACTIC [id number] 21:18:00 Test Item Value Reference Range Interpretation Comments PH (test code = 2) 7.35-7.45 PCO2 (test code = See_Comment [Automate d 8813896573) message] The sy stem which generated this result transmitted reference range : 35 - 45 mmHg. The reference range was not used to interpret this result as normal/abnormal . PO2 (test code = See_Comment L [Automated 7246487610) message] The sy stem which generated this result transmitted reference range : 80 - 100 mmHg. The reference range was not used to interpret this result as normal/abnormal . HCO3 (test code = See_Comment [Automate d 8464268977) message] The sy stem which generated this result transmitted reference range : 22 - 26 mEq/L. The reference range was not used to interpret this result as normal/abnormal . BE (test code = See_Comment [Automated 2973374259) message] The sy stem which generated this result transmitted reference range : -3.0 - 3.0 mEq/ L. The reference r meredith was not used to interpret this result as normal/abnormal . THB (test code = 9.2 g/dL 13.5-18 L 2489014617) %O2HB (test code = 94.3 % 94-99 4409993785) %COHB ART (test code = 0.7 % 0-1.5 0408597651) %METHB ART (test code = 0.3 % 0.4-1.5 L 8371201218) VOL%O2 ART (test code = 12.3 % 15-23 L 4537125554) NA (test code = 135 mmol/L 135-145 9313996613) K+ (test code = 3.7 mmol/L 3.5-5 5541035221) AC CA IONZ (test code = 4.90 mg/dL 4.5-5.3 4174233869) GLUCOSE (test code = 94 mg/dL 70-110 6440700528) LACTIC ACID (test code 1.35 mmol/L = 9925383453) Lab Interpretation Abnormal (test code = 71550-5) [facility] GLUCOSE (AUTOMATED)2020-04-08 16:33:00 Test Item Value Reference Range Interpretation Comments POCT GLU (test code = 8910016478) 109 mg/dL 70-110 Lab Interpretation (test code = Normal 38911-8) [facility] GLUCOSE (AUTOMATED)2020-04-08 16:33:00 Test Item Value Reference Range Interpretation Comments POCT GLU (test code = 9934708503) 120 mg/dL 70-110 H Lab Interpretation (test code = Abnormal 73461-7) [facility] GLUCOSE (AUTOMATED)2020-04-08 16:33:00 Test Item Value Reference Range Interpretation Comments POCT GLU (test code = 2548938382) 93 mg/dL 70-110 Lab Interpretation (test code = Normal 57830-5) [facility] GLUCOSE (AUTOMATED)2020-04-08 12:46:00 Test Item Value Reference Range Interpretation Comments POCT GLU (test code = 3544677725) 109 mg/dL 70-110 Lab Interpretation (test code = Normal 50254-0) [facility] WITH [id number] 10:21:00 Test Item Value Reference Range Interpretation [...] RDW-SD (test code = 48.4 fL 38.5-51.6 08174-0) RDW-CV (test code = 15.0 % 12.1-15.4 788-0) PLT (test code = See_Comment L [Automated 777-3) message] The system which generated this result transmitted reference range : 150 - 328 10*3/?L. The reference range was not used to interpret this result as normal/abnormal . MPV (test code = 11.4 fL 9.8-13 55486-5) NRBC/100 WBC (test See_Comment [Automat ed code = 4409409074) message] The system which generated this result transmitted reference range : 0.0 - 10.0 /100 WBCs. The reference range was not used to interpret this result as normal/abnormal . NRBC x10^3 (test code <0.01 See_Comment [Auto mated = 3614576102) message] The system which generated this result transmitted reference range : 10*3/?L. The reference range was not used to interpret this result as normal/abnormal . GRAN MAT (NEUT) % 84.9 % (test code = 770-8) IMM GRAN % (test code 0.80 % = 5192138751) LYMPH % (test code = 7.9 % 736-9) MONO % (test code = 5.3 % 5905-5) EOS % (test code = 0.3 % 713-8) BASO % (test code = 0.8 % 706-2) GRAN MAT x10^3(ANC) 3.34 10*3/uL 1.99-6.95 (test code = 3897615055) IMM GRAN x10^3 (test 0.03 10*3/uL 0-0.06 code = 4077676398) LYMPH x10^3 (test 0.31 10*3/uL 1.09-3.23 L [...] BANDS (test code = MARKED INCREASED A 4241104399) DOHLE BODIES (test Present A code = 7792-5) TOXIC CHANGES (test Present A code = 803-7) Lab Interpretation Abnormal (test code = 94197-8) [facility] METABOLIC PANEL (NA, K, CL, CO2, GLUCOSE, BUN, CREATININE, CA)2020-04-08 10:02:00 Test Item Value Reference Range Interpretation Comments NA (test code = 138 mmol/L 135-145 4653079327) K (test code = 4.1 mmol/L 3.5-5 1481975048) CL (test code = 109 mmol/L 98-108 H 4801142441) CO2 TOTAL (test code = 25 mmol/L 23-31 3930367737) AGAP (test code = 2-16 0739068245) BUN (test code = 26 mg/dL 7-23 H 1073235747) GLUCOSE (test code = 103 mg/dL 70-110 0791325091) CREATININE (test code = 0.90 mg/dL 0.6-1.25 2441285667) CALCIUM (test code = 8.4 mg/dL 8.6-10.6 L 0918410430) eGFR Calculation mL/min/1.73m2 (Non-) (test code = 4674503894) eGFR Calculation mL/min/1.73m2 () (test code = 0257728345) GILBERTO (test code = GILBERTO) Association of [...] tests). Lab Interpretation Abnormal (test code = 35990-3) [facility] 10:02:00 Test Item Value Reference Range Interpretation Comments MAGNESIUM (test code = 9796696951) 2.6 mg/dL 1.7-2.4 H Lab Interpretation (test code = Abnormal 15959-1) [facility] + LACTIC [id number] 09:43:00 Test Item Value Reference Range Interpretation Comments PH (test code = 7.32-7.42 7343965298) PCO2 PANKAJ (test code = See_Comment [Auto mated 9201111094) message] The sy stem which generated this result transmitted reference range : 41 - 51 mmHg. The reference range was not used to interpret this result as normal/abnormal . PO2 PANKAJ (test code = See_Comment [Autom ated 4456111305) message] The sy stem which generated this result transmitted reference range : 25 - 40 mmHg. The reference range was not used to interpret this result as normal/abnormal . HCO3 PANKAJ (test code = See_Comment [Auto mated 2203966725) message] The sy stem which generated this result transmitted reference range : 24 - 28 mEq/L. The reference range was not used to interpret this result as normal/abnormal . AC VBE(BEAKER) (test mEq/L code = 7224411382) THB PANKAJ (test code = 11.4 g/dL 13.5-18 L 6930732915) %O2HB PANKAJ (test code = 64.9 % 52-63 H 6064718122) %COHB PANKAJ (test code = 1.0 % 0-1.5 1859536937) %METHB PANKAJ (test code = 0.3 % 0.4-1.5 L 9108735115) VOL%O2 PANKAJ (test code = 10.4 % 6-12 8008651238) NA (test code = 138 mmol/L 135-145 0065327496) K+ (test code = 4.1 mmol/L 3.5-5 6460461673) AC CA IONZ (test code = 4.90 mg/dL 4.5-5.3 2649926353) GLUCOSE (test code = 98 mg/dL 70-110 6025660121) LACTIC ACID (test code 1.90 mmol/L = 5111746512) Lab Interpretation Abnormal (test code = 28225-2) [facility]2020-04-08 04:25:00 Test Item Value Reference Range Interpretation Comments POCT GLU (test code = 6426481420) 106 mg/dL 70-110 Lab Interpretation (test code = Normal 19063-2) [facility] 1 [id number] 22:55:21Impression: Stable findings with no new changes.Exam: [...] [facility] / MSSA Screen by Estefanía [id number] 19:28:00 Test Item Value Reference Range Interpretation Comments MSSA Screen by Estefanía VIEIRA (test code Negative Negative = 30880-9) MRSA/MSSA Positive? (test code = No No 1758854000) Lab Interpretation (test code = Normal 32820-5) [facility])2020-04-07 17:01:00 Test Item Value Reference Range Interpretation Comments POCT GLU (test code = 2048626303) 95 mg/dL 70-110 Lab Interpretation (test code = Normal 56983-5) [facility] 20 + LACTIC [id number] 14:15:00 Test Item Value Reference Range Interpretation Comments PH (test code = 2) 7.35-7.45 L PCO2 (test code = See_Comment [Automate d 5782616977) message] The sy stem which generated this result transmitted reference range : 35 - 45 mmHg. The reference range was not used to interpret this result as normal/abnormal . PO2 (test code = See_Comment H [Automated 6327277913) message] The sy stem which generated this result transmitted reference range : 80 - 100 mmHg. The reference range was not used to interpret this result as normal/abnormal . HCO3 (test code = See_Comment L [Automate d 8946032994) message] The sy stem which generated this result transmitted reference range : 22 - 26 mEq/L. The reference range was not used to interpret this result as normal/abnormal . BE (test code = See_Comment L [Automated 4820115207) message] The sy stem which generated this result transmitted reference range : -3.0 - 3.0 mEq/ L. The reference r meredith was not used to interpret this result as normal/abnormal . THB (test code = 9.6 g/dL 13.5-18 L 6891138855) %O2HB (test code = 98.6 % 94-99 1781921236) %COHB ART (test code = 0.3 % 0-1.5 3424099191) %METHB ART (test code = 0.0 % 0.4-1.5 L 2079118944) VOL%O2 ART (test code = NA 2965902914) NA (test code = 131 mmol/L 135-145 L 8933738056) K+ (test code = 4.3 mmol/L 3.5-5 7138824905) AC CA IONZ (test code = 4.60 mg/dL 4.5-5.3 3412922260) GLUCOSE (test code = 147 mg/dL 70-110 H 9005353666) LACTIC ACID (test code 3.12 mmol/L 0.5-2.2 H = 1871301702) Lab Interpretation Abnormal (test code = 05395-9) [facility] CampusLaaric Acid Whole [id number] 14:00:00 Test Item Value Reference Range Interpretation Comments LACTIC ACID (test code = 3.12 mmol/L 4200919213) [facility])2020-04-07 12:53:00 Test Item Value Reference Range Interpretation Comments POCT GLU (test code = 0542952522) 140 mg/dL 70-110 H Lab Interpretation (test code = Abnormal 17040-8) [facility] + LACTIC [id number] 12:01:00 Test Item Value Reference Range Interpretation Comments PH (test code = 2) 7.35-7.45 L PCO2 (test code = See_Comment L [Automate d 2067471530) message] The sy stem which generated this result transmitted reference range : 35 - 45 mmHg. The reference range was not used to interpret this result as normal/abnormal . PO2 (test code = See_Comment H [Automated 2149947638) message] The sy stem which generated this result transmitted reference range : 80 - 100 mmHg. The reference range was not used to interpret this result as normal/abnormal . HCO3 (test code = See_Comment L [Automate d 0172280078) message] The sy stem which generated this result transmitted reference range : 22 - 26 mEq/L. The reference range was not used to interpret this result as normal/abnormal . BE (test code = See_Comment L [Automated 8082528020) message] The sy stem which generated this result transmitted reference range : -3.0 - 3.0 mEq/ L. The reference r meredith was not used to interpret this result as normal/abnormal . THB (test code = 10.8 g/dL 13.5-18 L 0552565239) %O2HB (test code = 98.8 % 94-99 2658524722) %COHB ART (test code = 0.3 % 0-1.5 3297828549) %METHB ART (test code = 0.0 % 0.4-1.5 L 3911970874) VOL%O2 ART (test code = 15.4 % 15-23 3152646147) NA (test code = 126 mmol/L 135-145 L 8521800658) K+ (test code = 4.3 mmol/L 3.5-5 8014879699) AC CA IONZ (test code = 4.70 mg/dL 4.5-5.3 3870492209) GLUCOSE (test code = 144 mg/dL 70-110 H 7542697670) LACTIC ACID (test code 2.79 mmol/L = 4113819966) Lab Interpretation Abnormal (test code = 86234-2) [facility] CampusURINE [id number] 11:44:00 Test Item Value Reference Range Interpretation Comments URINE CULTURE (test No aerobic growth (< code = 630-4) 1000 CFU/mL) [facility] WITH [id number] 09:53:00 Test Item Value Reference Range Interpretation [...] RDW-SD (test code = 48.8 fL 38.5-51.6 98161-9) RDW-CV (test code = 15.0 % 12.1-15.4 788-0) PLT (test code = See_Comment L [Automated 777-3) message] The sy stem which generated this result transmitted reference range : 150 - 328 10*3/ ?L. The reference r meredith was not used to interpret this result as normal/abnormal . MPV (test code = 11.8 fL 9.8-13 14400-2) IPF % (test code = 6.5 % 1.2-10.7 Platelet count 2309283281) measured by fluorescence method. NRBC/100 WBC (test See_Comment [Automat ed code = 9771556746) message] The system which generated this result transmitted reference range : 0.0 - 10.0 /100 WBCs. The refer ence range was not u sed to interpret th is result as normal/abnormal . NRBC x10^3 (test code <0.01 See_Comment [Auto mated = 9007503363) message] The s ystem which generated this result transmitted reference range : 10*3/?L. The reference range was not used to interpret this result as normal/abnormal . SEG % (test code = 20 % 33-76 L 06073-2) BAND % (test code = 45 % 0-1 H 40421-6) META % (test code = 9 % See_Comment H [Automa dain 42474-0) message] The sy stem which generated this result transmitted reference range : <=0. The refere nce range was not u sed to interpret th is result as normal/abnormal . MYELO % (test code = 1 % See_Comment H [Autom ated 50020-4) message] The sy stem which generated this result transmitted reference range : <=0. The refere nce range was not u sed to interpret th is result as normal/abnormal . LYMPH % (test code = 20 % 14-54 52124-0) MONO % (test code = 5 % 0-4 H 58182-4) ANC (test code = 1.40 10*3/uL 1.99-6.95 L 6287624778) GOLDEN CELLS (test code 2+ See_Comment A [...] 803-7) Lab Interpretation Abnormal (test code = 24455-3) [facility] METABOLIC PANEL (NA, K, CL, CO2, GLUCOSE, BUN, CREATININE, CA)2020-04-07 09:21:00 Test Item Value Reference Range Interpretation Comments NA (test code = 137 mmol/L 135-145 5312079063) K (test code = 4.6 mmol/L 3.5-5 9954742027) CL (test code = 110 mmol/L 98-108 H 6102063121) CO2 TOTAL (test code = 17 mmol/L 23-31 L 3015154243) AGAP (test code = 2-16 7606862599) BUN (test code = 24 mg/dL 7-23 H 1969690499) GLUCOSE (test code = 132 mg/dL 70-110 H 1346156315) CREATININE (test code = 1.23 mg/dL 0.6-1.25 8482082669) CALCIUM (test code = 8.0 mg/dL 8.6-10.6 L 6611174741) eGFR Calculation mL/min/1.73m2 (Non-) (test code = 9481303272) eGFR Calculation mL/min/1.73m2 () (test code = 6606156149) GILBERTO (test code = GILBERTO) Association of [...] tests). Lab Interpretation Abnormal (test code = 40770-3) [facility]2020-08-15 09:19:00 Test Item Value Reference Range Interpretation Comments MAGNESIUM (test code = 3265138088) 2.9 mg/dL 1.7-2.4 H Lab Interpretation (test code = Abnormal 66569-6) [facility] ([facility])2020-04-07 04:37:00 Test Item Value Reference Range Interpretation Comments POCT GLU (test code = 2389724562) 111 mg/dL 70-110 H Lab Interpretation (test code = Abnormal 04315-5) [facility] CampusHCV [id number] 02:35:00 Test Item Value Reference Range Interpretation Comments HCV Ab (test code = 06495-8) Negative HCV Semi-Quantitative (test code = 66689-6) [facility] + LACTIC [id number] 02:15:00 Test Item Value Reference Range Interpretation Comments PH (test code = 7.32-7.42 L 1937841240) PCO2 PANKAJ (test code = See_Comment L [Auto mated 2483029030) message] The sy stem which generated this result transmitted reference range : 41 - 51 mmHg. The reference range was not used to interpret this result as normal/abnormal . PO2 PANKAJ (test code = See_Comment HH [Autom ated 7421816880) message] The sy stem which generated this result transmitted reference range : 25 - 40 mmHg. The reference range was not used to interpret this result as normal/abnormal . HCO3 PANKAJ (test code = See_Comment L [Auto mated 8294373893) message] The sy stem which generated this result transmitted reference range : 24 - 28 mEq/L. The reference range was not used to interpret this result as normal/abnormal . AC VBE(BEAKER) (test mEq/L code = 9018857406) THB PANKAJ (test code = 11.2 g/dL 13.5-18 L 9144787025) %O2HB PANKAJ (test code = 98.7 % 52-63 H 3410991148) %COHB PANKAJ (test code = 0.3 % 0-1.5 2842614813) %METHB PANKAJ (test code = 0.1 % 0.4-1.5 L 2534207334) VOL%O2 PANKAJ (test code = 15.9 % 6-12 H 0244928545) NA (test code = 136 mmol/L 135-145 0097590380) K+ (test code = 4.2 mmol/L 3.5-5 3477266240) AC CA IONZ (test code = 4.60 mg/dL 4.5-5.3 3665957293) GLUCOSE (test code = 108 mg/dL 70-110 8357248742) LACTIC ACID (test code 2.37 mmol/L = 0448013595) Lab Interpretation Abnormal (test code = 64615-2) [facility] CampusABG+COOX+NA+K+GLU+CA2+2020-04-07 01:54:00 Test Item Value Reference Range Interpretation Comments PH (test code = 2) 7.35-7.45 LL PCO2 (test code = See_Comment [Automate d message] 4641894296) The system [employer] generated this result transmit dain reference range : 35 - 45 mmHg. The reference range was not used to interpret this result as normal/abnormal . PO2 (test code = See_Comment H [Automated message] 1765468445) The system [employer] generated this result transmit dain reference range : 80 - 100 mmHg. The reference range was not used to interpret this result as normal/abnormal . HCO3 (test code = See_Comment L [Automate d message] 4801060725) The system [employer] generated this result transmit dain reference range : 22 - 26 mEq/L. The reference range was not used to interpret this result as normal/abnormal . BE (test code = See_Comment L [Automated message] 8956327684) The system [employer] generated this result transmit dain reference range : -3.0 - 3.0 mEq/ L. The reference r meredith was not used to interpret this result as normal/abnormal . THB (test code = 10.6 g/dL 13.5-18 L 8959965800) %O2HB (test code = 99.0 % 94-99 0152303599) %COHB ART (test code = 0.3 % 0-1.5 2065569774) %METHB ART (test code = 0.3 % 0.4-1.5 L 6611800589) VOL%O2 ART (test code = 15.3 % 15-23 9490717698) NA (test code = 136 mmol/L 135-145 1223725506) K+ (test code = 3.1 mmol/L 3.5-5 L 4216567733) AC CA IONZ (test code = 4.30 mg/dL 4.5-5.3 L 1063868626) GLUCOSE (test code = 113 mg/dL 70-110 H 6334767686) Lab Interpretation Abnormal (test code = 34210-0) [facility]ABG+COOX+NA+K+GLU+CA2+2020-04-07 01:53:00 Test Item Value Reference Range Interpretation Comments PH (test code = 2) 7.35-7.45 PCO2 (test code = See_Comment L [Automate d message] 9567750410) The system [employer] generated this result transmit dain reference range : 35 - 45 mmHg. The reference range was not used to interpret this result as normal/abnormal . PO2 (test code = See_Comment H [Automated message] 0600056353) The system [employer] generated this result transmit dain reference range : 80 - 100 mmHg. The reference range was not used to interpret this result as normal/abnormal . HCO3 (test code = See_Comment L [Automate d message] 0089086335) The system [employer] generated this result transmit dain reference range : 22 - 26 mEq/L. The reference range was not used to interpret this result as normal/abnormal . BE (test code = See_Comment L [Automated message] 3017930639) The system [employer] generated this result transmit dain reference range : -3.0 - 3.0 mEq/ L. The reference r meredith was not used to interpret this result as normal/abnormal . THB (test code = 13.1 g/dL 13.5-18 L 8042828933) %O2HB (test code = 98.9 % 94-99 1702471422) %COHB ART (test code = 0.1 % 0-1.5 8857567828) %METHB ART (test code = 0.6 % 0.4-1.5 0701227406) VOL%O2 ART (test code = 19.3 % 15-23 2011018632) NA (test code = 132 mmol/L 135-145 L 0329693534) K+ (test code = 4.2 mmol/L 3.5-5 9404999939) AC CA IONZ (test code = 4.60 mg/dL 4.5-5.3 8329469770) GLUCOSE (test code = 99 mg/dL 70-110 5867313924) Lab Interpretation Abnormal (test code = 73566-7) [facility]HIV [facility]/2 AG-AB WITH [id number] 01:29:00 Test Item Value Reference Range Interpretation Comments HIV Negative Negative Semi-quantitative (test code = 52305-4) GILBERTO (test code = Non-reactive for HIV-1 GILBERTO) antigen and HIV-1/HIV-2 antibodies. ?No laboratory evidence of HIV infection. ?Repeat in 2-4 weeks if acute HIV infection is suspected. [facility] GLUCOSE (AUTOMATED)2020-04-07 00:40:00 Test Item Value Reference Range Interpretation Comments POCT GLU (test code = 5204598177) 100 mg/dL 70-110 Lab Interpretation (test code = Normal 78692-2) [facility] GLUCOSE (AUTOMATED)2020-04-07 00:06:00 Test Item Value Reference Range Interpretation Comments POCT GLU (test code = 7176708432) 116 mg/dL 70-110 H Lab Interpretation (test code = Abnormal 12487-3) [facility] GLUCOSE (AUTOMATED)2020-04-06 22:48:00 Test Item Value Reference Range Interpretation Comments POCT GLU (test code = 1547868977) 94 mg/dL 70-110 Lab Interpretation (test code = Normal 39494-5) [facility]XR CHEST 1 [id number] 21:06:45 1. Interval placement of right internal [...] reviewed this study and agree with the abovereport.[facility] WITH [id number] 20:15:00 Test Item Value Reference Range Interpretation Comments WBC (test code = See_Comment LL [Automated 0690-2) message] The sy stem which [...] RDW-SD (test code = 49.2 fL 38.5-51.6 26781-9) RDW-CV (test code = 14.7 % 12.1-15.4 788-0) PLT (test code = See_Comment L [Automated 777-3) message] The sy stem which generated this result transmitted reference range : 150 - 328 10*3/ ?L. The reference r meredith was not used to interpret this result as normal/abnormal . MPV (test code = 12.1 fL 9.8-13 86162-9) NRBC/100 WBC (test See_Comment [Automat ed code = 9877089738) message] The system which generated this result transmitted reference range : 0.0 - 10.0 /100 WBCs. The refer ence range was not u sed to interpret th is result as normal/abnormal . NRBC x10^3 (test code <0.01 See_Comment [Auto mated = 8784686217) message] The s ystem which generated this result transmitted reference range : 10*3/?L. The reference range was not used to interpret this result as normal/abnormal . SEG % (test code = 38 % 33-76 19799-5) BAND % (test code = 28 % 0-1 H 89972-5) META % (test code = 4 % See_Comment H [Automa dain 82101-1) message] The sy stem which generated this result transmitted reference range : <=0. The refere nce range was not u sed to interpret th is result as normal/abnormal . MYELO % (test code = 6 % See_Comment H [Autom ated 01562-4) message] The sy stem which generated this result transmitted reference range : <=0. The refere nce range was not u sed to interpret th is result as normal/abnormal . LYMPH % (test code = 16 % 14-54 94760-4) MONO % (test code = 8 % 0-4 H 57168-6) ANC (test code = 0.40 10*3/uL 1.99-6.95 L 5052672897) GOLDEN CELLS (test code 3+ See_Comment A [Auto mated = 7790-9) message] The sy stem which generated this result transmitted reference range : (none). The reference range was not used to interpret this result as normal/abnormal . DOHLE BODIES (test Present A code = 7792-5) Lab Interpretation Abnormal (test code = 07684-7) [facility] CampusaPTT2020-08-14 19:55:00 Test Item Value Reference Range Interpretation Comments APTT Patient (test code See_Comment H [Au tomated message] = 3173-2) The system [employer] generated this result transmitted ref erence range: 26 - 36 Seconds. The reference range was not used to int erpret this result as normal/abnormal . Lab Interpretation (test Abnormal code = 07422-1) [facility] CampusPROTHROMBIN TIME / [id number] 19:55:00 Test Item Value Reference Range Interpretation [...] tions. Lab Interpretation (test Abnormal code = 68809-8) [facility] CampusCOMP. METABOLIC PANEL (90253)2020-04-06 19:50:00 Test Item Value Reference Range Interpretation Comments NA (test code = 137 mmol/L 135-145 1135034988) K (test code = 3.6 mmol/L 3.5-5 8672885922) CL (test code = 109 mmol/L 98-108 H 7252881803) CO2 TOTAL (test code = 18 mmol/L 23-31 L 8646423423) AGAP (test code = 2-16 0915984134) BUN (test code = 27 mg/dL 7-23 H 8834746687) GLUCOSE (test code = 91 mg/dL 70-110 6611746870) CREATININE (test code = 1.38 mg/dL 0.6-1.25 H 7516894228) TOTAL BILI (test code = 1.0 mg/dL 0.1-1.7 8252650931) CALCIUM (test code = 8.0 mg/dL 8.6-10.6 L 3497010904) T PROTEIN (test code = 4.3 g/dL 6.3-8.2 L 7846261908) ALBUMIN (test code = 2.7 g/dL 3.5-5 L 1871573167) ALK PHOS (test code = <20 34-122 L 6909136279) ALTv (test code = 9 U/L 5-50 1742-6) AST(SGOT) (test code = 21 U/L 13-40 8632321449) eGFR Calculation mL/min/1.73m2 (Non-) (test code = 7739957067) eGFR Calculation mL/min/1.73m2 () (test code = 5987556386) GILBERTO (test code = GILBERTO) Association of [...] tests). Lab Interpretation Abnormal (test code = 28742-9) [facility] METABOLIC PANEL (NA, K, CL, CO2, GLUCOSE, BUN, CREATININE, CA)2020-04-06 19:50:00 Test Item Value Reference Range Interpretation Comments NA (test code = 137 mmol/L 135-145 6725692323) K (test code = 3.6 mmol/L 3.5-5 8984692414) CL (test code = 109 mmol/L 98-108 H 8846290747) CO2 TOTAL (test code = 18 mmol/L 23-31 L 6854125118) AGAP (test code = 2-16 5870865425) BUN (test code = 27 mg/dL 7-23 H 1909046598) GLUCOSE (test code = 91 mg/dL 70-110 8574081326) CREATININE (test code = 1.38 mg/dL 0.6-1.25 H 5852166361) CALCIUM (test code = 8.0 mg/dL 8.6-10.6 L 2982041966) eGFR Calculation mL/min/1.73m2 (Non-) (test code = 9881345409) eGFR Calculation mL/min/1.73m2 () (test code = 1398021644) GILBERTO (test code = GILBERTO) Association of [...] tests). Lab Interpretation Abnormal (test code = 00896-4) [facility] CampusMAGNESIUM2020-08-14 19:44:00 Test Item Value Reference Range Interpretation Comments MAGNESIUM (test code = 0973727566) 1.7 mg/dL 1.7-2.4 Lab Interpretation (test code = Normal 79006-6) [facility] [facility] + LACTIC [id number] 19:25:00 Test Item Value Reference Range Interpretation Comments PH (test code = 7.32-7.42 L [id number]) PCO2 PANKAJ (test code = See_Comment L [Auto mated [id number]) message] The sy stem which generated this result transmitted reference range : 41 - 51 mmHg. The reference range was not used to interpret this result as normal/abnormal . PO2 PANKAJ (test code = See_Comment H [Autom ated [id number]) message] The sy stem which generated this result transmitted reference range : 25 - 40 mmHg. The reference range was not used to interpret this result as normal/abnormal . HCO3 PANKAJ (test code = See_Comment L [Auto mated [id number]) message] The sy stem which generated this result transmitted reference range : 24 - 28 mEq/L. The reference range was not used to interpret this result as normal/abnormal . AC VBE(BEAKER) (test mEq/L code = 3978786220) THB PANKAJ (test code = 10.1 g/dL 13.5-18 L 1809108767) %O2HB PANKAJ (test code = 84.0 % 52-63 H 9353533352) %COHB PANKAJ (test code = 0.6 % 0-1.5 3841565260) %METHB PANKAJ (test code = 0.3 % 0.4-1.5 L 3554887749) VOL%O2 PANKAJ (test code = 12.0 % 6-12 7473580354) NA (test code = 135 mmol/L 135-145 7677943885) K+ (test code = 3.5 mmol/L 3.5-5 1349695052) AC CA IONZ (test code = 4.50 mg/dL 4.5-5.3 1392017958) GLUCOSE (test code = 87 mg/dL 70-110 9617221802) LACTIC ACID (test code 3.34 mmol/L = 3838457351) Lab Interpretation Abnormal (test code = 94949-4) [facility] + LACTIC [id number] 19:19:00 Test Item Value Reference Range Interpretation Comments PH (test code = 2) 7.35-7.45 L PCO2 (test code = See_Comment L [Automate d [id number]) message] The sy stem which generated this result transmitted reference range : 35 - 45 mmHg. The reference range was not used to interpret this result as normal/abnormal . PO2 (test code = See_Comment H [Automated 1751931535) message] The sy stem which generated this result transmitted reference range : 80 - 100 mmHg. The reference range was not used to interpret this result as normal/abnormal . HCO3 (test code = See_Comment L [Automate d 8112199418) message] The sy stem which generated this result transmitted reference range : 22 - 26 mEq/L. The reference range was not used to interpret this result as normal/abnormal . BE (test code = See_Comment L [Automated 6357291827) message] The sy stem which generated this result transmitted reference range : -3.0 - 3.0 mEq/ L. The reference r meredith was not used to interpret this result as normal/abnormal . THB (test code = 10.4 g/dL 13.5-18 L 2372487608) %O2HB (test code = 98.3 % 94-99 0908185514) %COHB ART (test code = 0.3 % 0-1.5 4521787626) %METHB ART (test code = 0.3 % 0.4-1.5 L 3751559538) VOL%O2 ART (test code = 14.8 % 15-23 L 6571589866) NA (test code = 135 mmol/L 135-145 3894825795) K+ (test code = 3.5 mmol/L 3.5-5 8233324226) AC CA IONZ (test code = 4.50 mg/dL 4.5-5.3 3199212410) GLUCOSE (test code = 96 mg/dL 70-110 7519210916) LACTIC ACID (test code 2.95 mmol/L = 3401236644) Lab Interpretation Abnormal (test code = 82906-3) [facility] [id number] 16:51:00 Test Item Value Reference Range Interpretation Comments Case Report (test code Surgical Pathology ? ? = 1380371790) ?Case: [id number] ? Authorizing Provider: ?Bia Pedro MD ?Collected: ? 04/03/2020 1513 ?Ordering Location: ? ? [facility] OR ? Received: ?04/03/2020 1657 ? Department ? Pathologist: ? Nimisha Galloway MD PHD ?Specimens: ? A) - COLON, total abdominal colectomy ? B) - COLON, donuts x2 ? Final Diagnosis (test l7xvgQAiHECyo0uzFCUpvT code = 8259987499) FuZzEwMzNcZnRuYmpcdWMx ESnapoCvSFjex5BeZ2CqGd AwMFxhbnNpXGRlZmxhbmcx DANuLGQ8nmDxAYOyWAhuEH DuVFcvIa9gdOWobEauYiLj NBMpe9opgwAWhaaqnOa3h4 gaNMHhGtV6zRZeJAcbV1hw pjOpuHDeMKRkHEd5sB86WF XrkN0hfSNuSQothePoWXae vaDizgPzRae6LWGhP9atSK OdPMWrM1RkJR1dHOXvQsp1 RHC7AQC2hMbqh7A4hXLwdF VnfWzdNvWwEsSqVZHWm8Fd FNe9qVvrS9BrRLQwWdP9kF QgUGFyYWdyYXBoIEZvbnQ7 hRhoM9ToHDRcZqX1lKWbJS RnPGbmULCmFr6efFm8sYhh DsfaZPW2Lhq9HZ1qjw07hf o3bMxyVFHsoshrRbN1YShm JBIyupemINj9DPikEHAojQ TuSASbuWEqC9TyPFblCR4n mrd5DgMcDQ8tcsmoBAqrMV AsJLS9XmVqMUGfk7Nkswob VfFtnh5ref46INH8y2OfoP ssZKA5CFW9NxItSu9sqNAe GMVzUJ8aCzWqrNXoAVQqrm 54wGanCOgxciVoqA8eMnRi SDZjmMUpDZCmKD5xjTEsVF JqeP1yzkuiHOXtJaSsxpqp PLSfsIqlixYaGd9xcYsnMV H7SAmgH3xojU1uYjA8YQjr R3krmR0zBBn6NBsllHH1PI RplK8aEN7nlxtpf6bkCRJ6 DCdtEHUnmcE8zhLgMNGvpO RyL0XdgD18YwUqmGXoS6Ig uG9eAXonGVTzwjr0ZsRlEj 8ycKNzuWL8ULgaCjdsPNhp XHBnbmNvbnRccGduZGVjXH BsYWluXHBsYWluXGYwXGZz PqUpjJkzyUgbgJ9mWlWhPv MyMFxwbGFpblxmMVxmczIw RWMdjdUYFySFT5yRJgbsEX 7UMPxhWmSSFQAEXZ5WIlbo JCAfBGMsGK5ePwRPE3SUJU DrT30EO8UYCJrDByZEUWEH LFJNZi4FP63CYUILDN6DYr EVEGuPUIPVN31MIIKAUVOH AfHOWVTLCFMMX0uZXSahYO ZbOWNiKXVaZ1FASFUBH5PY E65bEXVdzhChIZPkYBATZK gDDCXULHWDSOOJJ4ZPJG4Y OB2UNOsYJQKeR1rUYGEVYQ AtP94ZZ31UBaUUQyDWWHcD TVIDKGOKWO4YQPwMCxKLFX vENnqAPZMEZ0MZOCSmvGPw IOYpNBEpRC0BA6JKDKYCVV 9OXHBhciAgICAgLSBOTyBF EjzJZG1WFPZGHxDMWLWSJ9 VMQP7IC7USK8dTRTqaJWVo WLDbNV8vFB6XZXEHCiZJIG BTRVNTSUxFIFNFUlJBVEVE VFCVCC0VTHLsuVLnAFJqQR AtIFJFQUNUSVZFIExZTVBI SJ8ECCDHLDAayvQnYCPhKQ EKVKRSZQJhNlIGKHOBFA6P RG8IVioXNnUqgRPzYGWzob xwbGFpblxmMVxmczIyXGxh plmoUBIuRQtiH7voSuVyDK PovZzdYFevq3SaMOJySCSq OPazurKqEXOfx6dvJMJgVc V7cBWaYXBRTbIATdUjQK0u JC9wGPEqTTWtFSgsChYXTW xwbGFpblxmMVxmczIwXHBh rnxpWCQ5b0stiOWfFCXdkL WvQuDdBHIyZQRnw4qbTLAi bGFuZzEwMzNcZnRuYmpcdW EqPNKhKsQev1vog368hALw w4arKEWnLxD3xDAlVQAneD tokqr9pYuiPgRdQMPbd9tc cyBcZmNoYXJzZXQwIEFyaW QmF736KMZgVKbma2ifw6Xw HTIzdBKor4I2IDAHEShyOt BrJ669k6jpm4zoepVzzLF1 ZGGeYYJ4GRuxpdWfspB5KD worXNcSeE4IGtwoiVqGDkj ccFnywNiIbq8UUYeR198TE Y9uLjuk3hbZGT0COAxPDKe UjjjJc5kyPQhX579YQIoAI BKJGRurPd8IMDyioIdskSb mENAj392C401n7hyTWHvpr DlqTbGwnkzc4bnZ661HNBs cGVydzEyMjQwXHBhcGVyaD N3FGPlWV3cpktmLCykJZzs VHTkfiC6EHNwiIApT5OrOI CdLK2emmxpGQI3GJtzMFDb PAI8HdYyEUZwi8Rtqtf2Ja Jbhz6opn64GEJ7i5GdvTpp PUI5CQR1GrHoPh9eoHDqVW CoTR4pIpCfkALwIUIyni08 lLumYXfgacGpbE3cQyOdHY PxrGPwHBWnYQ7bkICxYIKz sJ2xgktpXLWoAoQsopjuJT ZvyHsydtOuMm9mdIlqWKR2 YJwkR6dvaD4fXqT8DQtsL2 oudT4ePWi9WAgjdLK6SHMl vB9oCB6ftlqno8dtSIxdBP wuKXGiyvO9zfB2FJXxmSCe V7XpmT9lICFtTY6kklnqy7 usRSG7AZdiFCNxEHV4IbXd ZTIrn0Sbkrg6JcAgf9EyxF ImMNqaO81zy675GMThorQk N2gltOFhjwbpsELodqjdRU tmoeS6ONTcIOKtIJsgMXPy XGZzMjBcbGFuZzEwMzNcaG ljaFxmMVxkYmNoXGYxXGxv X7vsJdCzB7EfHGUjNsKytI RjFOorrKR5BXOlIVZku68w cOm6PSXucwgef7WyKNEevC XlxBOkmD5jfiQpl8hrTOXs MLLmXPKwY4DyHYV6tFPdAM TfkPMpmFU3ZS1comWdHL7j ZGUgYnkgcmVzaWRlbnRzLC QpXZhlz0gkBH0yRKQwlGft iR9xhJF0LCGcf4wqwPYouH Uyu0vsb6MlbcVvZAlvNWMp IWweOPUoINZiMA0yXIBpnL AtokKrk0K3VdjxyOYmvpsd ZmziyiV6IYqugombPZWhET baW4keCyQzHEOkwPnfBpuz x3YnDGUxCNNlVtniwREfvV 0= Clinical Information Large bowel (test code = obstruction [K56.609] 3867896593) Gross Description (test e4fudIXxORSmcJMqSuAuSP code = 3063795497) PeOVEgq0vrRFNvoOHlSoZl MzNcZnRuYmpcdWMxXGRlZm Hnz1dub508pPRij7lqRMUg BaB7uQDtOQWyeXEzN765GX JuHSccz1bsm8GvCQJnjHZt b5O0JJZEuoxifLk4qBqeW1 8gh4Y8ZefeT0duXWAeRVtt GLJuUSzssGOiYQP5HKOzUA P8THwhbzUfsaY2EYmjvCRb VbS9ZJb0y1iwjLplULMvAU P8e2huACtuuwGiNG8pwx7q bUw7o5ltwnVzBBSnVXWuiH OKUQDuR4RwgDneVv3oxXx7 lInnNcsoTLH7Jxh4CZ5lmh 28kgj9lSgsKCKfssgoKgE3 FMfmSIMzpjwuDNr0TUiwWV UrgZVsTSKjwFIoB3NfSUbm OK0cszq1SxBzJT4wkuwzPX eqGWRyQPV0MiClRFLyc1Ne yjohXkUclp0iba71HQG1r6 SifYzbPOW7LCD7UoDuMe5h vFCaNCSoQR0eBnNkkXSuGZ Ozfl23sJdjFEasygBwiI9a OoJsEWJjzDJjNFQvTJ7kcQ AqXAHlsI2ealtcYOHkWuEn embgSMXvtIashiSfBl6wtY jmGPI9EFncM7nieH1dDyG8 XOlxL3dhaC0eCGa5IBtnwC Q0DQDckF9qEJ8fkbbrp4tf EQB4YEwrGUVkkzA3prQhLD WmzWPrN5JzuW99WjAayZPc G1CwzV9kJXbaEYZyekz3Ki HzEo5jjQJfxQW7IXnpOewo YWdlXHBnbmNvbnRccGduZG VjXHBsYWluXHBsYWluXGYw OPNoZuCxoKdzuJbqoJ3aNa BcZnMyMFxwbGFpblxmMVxm czIwIFNwZWNpbWVuIEEgaX UqhoGeDOh1BEQdPvOra2bv mRWuUXpiXBUdx0a1eGB2hZ NufQO2wYXidEpgPQ9uwEYi STJRHR74bBSwdnOoM50gx1 3iMYRwzFXsKTBeTO3naB8z xURkx0zcR4BvwAekJJXhgt KvT93ba3lsbTUza0NwQHF7 i4VdvZFrj6jbS0EpyAbre4 MlU0dhGS7rEZhrQvFdY05d lO7vaNTkD2YyOYyzJC8qKJ MiTtCgN38kvG7mVGmkkCM2 ZVDkHMzxwNfoPBX7WPBxWQ ThxKTfhVxoOPeymDtyvV0d ODXoQOXfjZDjfoIqTX6ahZ geuJE0ExZcM53zSCksiMB1 EGNoUIQ5wBBpDK1tOPckj0 NzbHkgaWRlbnRpZmlhYmxl NHJhqSFwSTf5JhUUvBJhd0 Rrl7UzDOziYCKlqz5dJZDr MP4xZHLwr740aXS4rUReJS VlwST8QGQbevMqy3Fmfy2h VGhlIHNwZWNpbWVuIGlzIG 7lCC1gEKIypW5qMkFejBLd YE77dP4re0QrsWFwbNKrNt 9yZGVyLiBUaGVyZSBpcyBh TGOipoQ3jENlndNkoYjxsM Q8SWnmVVkwAJagWZLpO9Ii JKKdp21mMNUlbrY7cT52ln WzrSRnUPS4LBNpNGPtbHUb PlMqS47aHuOymOX5dTCjHD nqyNGnCA7wxzxhgkZxjeYu LKOmY33sVyDmvUN4yHLtiO BfcQceEOqkyLYqR4gvNlKV fd26uX0xfYP6kbP2fZOieK RzxljnkEAbmASlTU13kU5k SFGgr5AoE5xsWHsqa4Ibcd H3dAVmPr64FWjxpNMaQYha dGVuZGVkIGZvciBhIGxlbm x5zVBnSxHnKV8yAWGyBtVF iBJjbX9ruFtbUCJyn3Sthy UyBFDtLWqyn78fwGvkTO98 S26rDFZoypAon3IphYx1EG WbDOO2SB5uGVhzG5CkrzCp YXIsIHdpdGggYXJlYXMgb2 YeL89jUudqb3AeziWfWWJn LHZkJW5uPWTgghVeP8hfDg Keqe8ePRVbQH5yNh61QDZh HW7bTYexEQffjYiii1QjcH gmGJHop0GvwmQaPOEgJMgc p47npBZllAldB5lhvfCyVV DkYEDruFRsQAR4QVtaJM0z jX2pYRQtq06rDZ3gWTOjNo UjaPqlOOIrQDPbJH4wuR9x tuyarHAuf5CgEG4aNEIkFW Edp6npxdZqzoQ7IC2mmBgn tuXzbzOkqVksMOIyn8DnmN KtYNGzdU1iGLVvPUOhybHg yy1xz6p1BXHnCHXqRB5dDH NtlRxtTPbdNI9iGZCceZGs mT5juUqhsuM8yJMvTKFzvd BhbiBhZGRpdGlvbmFsIHdl qGvvkUNkbCEuYUR1ijqqS8 KaDNMnFWNuFKHls1KwoWA0 usP5lDAvjDkix1KfO4WsZW q5qsH9qU6sZIShMOHrPIra XSXkpX4ye4unnWWboVyie9 YtY6PxLWQvvNIjKJlmeOcv CP7tTBV1QFShERAdm7RkxG MlzGJhOyPpzcHrx8QwtsHn PBWxMIUgjZWgvfLzNJ8eiE hfBpckEO89CXJhQOviGGMq YR6hbOAxPIV7vDJiOREht7 ZlvAZcLWPbUWDai4JdsLte IGxpbmUgYXQgdGhlIGJsaW 9nONApXEzuk2Wmun79tbZn UDSmwYCdyJEpT1ihGENnYP ely2TvWRNpv8B3IX6sQDof IHJlbWFpbmluZyBtdWNvc2 Iek2KcjJeiYWnnNJFoIJwj ZHEpPiA9z4QleFFmvVObiL BhbmQgdGhlIHZpYWJpbGl0 rJDoBfG1lOHbdnOzFHA7wW 7uPB4dkdzvxgKoDV0co6Gm TcJnC0Mmh8UibVSzRYAzha 1pbmVkLiBUaGUgcGVyaWNv hD9eiTZuBHVvmA4bQTK5rO CdzWZseUUvmFWmqVS6CICx Jo0vAYCsaY3ky3bvgTQxyM jukKyxya4jQYIxLMOqswqr yyqvLkWefWGpYuHeTX38HW PdBUlfYAftYWB2IMH5PQMs nMPkc9fewmnvUZKswJEve3 NkoLC8sTEhWMUrK7Rgq27x MGOvOGAdcEStdUI3HZPorZ 4gQTEtQTEwLlxwYXJccGFy XRHoU7Izx15sZ78eAImepD PvWXHuHoZCgp95lN1cyAOb ZLGaZ4Pcv26yzPMpL6olPB BlbiBmYWNlLCByZXByZXNl svNgkPi5DDjdQRCzUDC8MT Cvc4RcyVPsNAJvZ4Ibd05c aCKoG2yuMXOyeeNbXIPtGA SpOHVsBPKwaxRwpTe3FAge WIFmPVP5ZGhiGT9xUBUoaX UneZ1czCrvirT3wQYhABF7 qqlgT6XiJVUgCGZzHFRlwP Zux1HtkNG2vBTiXJOzlxLY GVddEuKnarUxJO95ZMDyjx Pnv0NgsZozbyJxv1GahBNo u5UeUINiBYA7KPauUJDda5 hpbWFsIHRvIHRoZSBkaXN0 WR7hOODtKBIyMFrlSKVmNB ImNGJ5IKRubRImd7BgfXG4 wMJlRISaY8Cpl15kIE6sKQ 78H12qCUTzysDjm3XarQZg ec6nGSVmZJSkaRM6UR5gMN EsOBQdVVkyVWDwIWo5DSWf CGFew5KmBBH5tfxtY1QhFN NjYXIgZGlzdGFsIHRvIGRp e1VtacUfMSSvldYxTNBsSF BzAFOqmyUznMs3WGooCPVz WBl6GKOaxSAlx9AuuQS0zV SoCHFiT9Bxb63sPO6eFM18 H40kKQQmyvPbo2HfyJDxaT O9IJhspG8woYrmLTZfg5Dw bmRlZCBhcmVhXHBhciBBOT feAT4jg5jiaTBffTgcm5Xi N8CrJZKobASqQGKcFBOvUM PhtxCzlWz6YBteVZDuLZHh NmIJyt8bhgAhENP0aP4cSO 9mIGludGVzdGluZSBhdHRh K4bzFKI6yaBwm6EksQNlCT EhkOSsU4KgULmyzdAbkqOu YGUbeXWbx4ObqFL0pPHwNM CntmHPXEX4ZMCeqM3il4np vKHqrIzgxTevua2lKVInJI vka3mzGUjbTXOacVVwMDYs lcXiaSemmL3qLzDkIjTrXV xwbGFpblxmMVxmczIwIFNw ZWNpbWVuIEIgaXMgcmVjZW l5AKOxSqEob5vmlJXlDSlu MTX3cFOtHEVpFFFnKIFwUR 31Q9VaqvZzPWkyWWynsuFw YsMnUZUfu9ycqphvXR5ylD BoJLxkELqsDcqaNB2tNTVg vtMab4QlRR7kELWtRQ0ew0 BezF6ydA7rXACeidH9ijGe XK96AHrdTC61IZlqCJ80MX NtIGFuZCAyLjUgeCAxLjkg aQVpBkjjM39mYbIFm5CsAK PhnqR1uwVizkYmOpfrWKM6 SEUdVPBlAWVcsCKtiD3hwu CtsjTevZZrpIR7SBLyFN37 mFSgpWwoBF6tCgJuTLMsde XQVA4BYwweiEXdY0CdJEQx xcL2TCcvPTZdEURkBGThAT BzbWFsbGVyIGRvdWdobnV0 IGluIEIzLiBccGFyXHBhci TMWBR5VBBwbpOkeVvwYPUI FUWeMEDyR5H5KSGsxYjvLR FnFNY1lqIgFTAcF5DwAFIJ MJPFE2OpUHAiXKybDKGdWX ZzMTZcbGFuZzEwMzNcaGlj aFxmMVxkYmNoXGYxXGxvY2 zxNfTmU5MgPYRjKZKiU24w rPaczF8uSyChPwAxEWdrLQ SlhUoabZmtaH0oPcRxLaIn MFxwbGFpblxmMVxmczIwXH Bhcn0= Embedded Images (test code = 6689075867) [facility]ubation2020-08-14 16:04:Ana Ahn MD ? ? 04/06/2020 11:06 AMIntubationUrgency: emergent Difficult airway General Information and Staff Patient location during procedure: ORAnesthesiologist: Cynthia Herring MDResident/MANAGER INVESTIGATIONS: Dana Sampson DOPerformed: anesthesiologist and resident/MANAGER INVESTIGATIONS Indications and Patient ConditionIndications for airway management: [...] [facility]Intubation2020-08-14 16:04:59Ana Syed MD ? ? 04/08/2020 ?5:11 AMIntubationUrgency: emergent Difficult airway General Information and Staff Patient location during procedure: ORAnesthesiologist: Cynthia Herring MDResident/MANAGER INVESTIGATIONS: Dana Sampson DOPerformed: anesthesiologist and resident/MANAGER INVESTIGATIONS Indications and Patient ConditionIndications for airway management: [...] glidescope to advance tube into airway. Additional CbhhvorkE9a on VL by CA1, multiple attempts by CA1 with ETT with stylet and bougie, unable to pass ETT through glottis. BVM between attempts. Glidescope stylet with ETT used by faculty under VL, attempt x 1 by faculty, g1v, atraumatic.[facility] CampusXR [id number] 15:42:20 Large volume pneumoperitoneum. Continued gaseous distention and dilatation of the stomach and smallbowelfollowing total colectomy with ileoanal anastomosis may representpostoperative ileus. Findings regarding pneumoperitoneum were already communicated to [facility]. Preliminary Report Dictated by Resident: Bart [...] small bowel and issimilar to prior radiographs. [place] project over the midline in the lowerabdomen. [facility], Radiant Results Inft User - 04/06/2020 10:43 [...] pneumoperitoneum were already communicated to [facility].Preliminary Report Dictated by Resident: Bart Klein reviewed this study and agree.I, Weston Wu MD., have reviewed this study andagree with theabove report. [facility] CampusType and Screen - ONCE [id number] 15:18:48 Test Item Value Reference Range Interpretation Comments ABO & RH (test code O POSITIVE Performe d at [facility] = 20) [facility] [address] [place] [address]Csyc Free: [phone] A No. [id number] IAT (test code = Negative Performed a t [facility] 1185) [facility] [address] [place], [place] [address]philipp lopez [address]Rgkg Free: [phone] A No. [id number] [facility] CampusXR CHEST 1 [id number] 15:09:51 1. ?Interval development of a large [...] the midline and inferiorly beyondthe diaphragm and [id number]-mj-kyry. Left diaphragm is elevated with interval development of large amount offree air noted under the diaphragms, better seen on concomitant abdominalx-ray. Lungs are clear without focal consolidation, pleural effusion orpneumothorax. The cardiomediastinal silhouette is stable. ?No acute osseousabnormalities. 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 Left diaphragm is elevated with interval development [...] [facility] CampusCentral [id number] 14:52:37Ana Syed MD ? ? 04/06/2020 ?9:53 [...] procedure well with no complications ? [facility] [id number] 14:52:37Ana Syed MD ? ? 04/06/2020 ?9:53 [...] tolerated procedure well with no complications ? [facility] [id number] 14:51:44Ana Syed MD ? ? 04/06/2020 ?9:52 [...] complications and all wires accounted for _ [facility] [id number] 14:51:44Ana Syed MD ? ? 04/06/2020 ?9:52 [...] complications and all wires accounted for _ [facility] WITH [id number] 13:22:00 Test Item Value Reference Range Interpretation [...] RDW-SD (test code = 47.8 fL 38.5-51.6 25415-2) RDW-CV (test code = 14.6 % 12.1-15.4 788-0) PLT (test code = See_Comment [Automated 777-3) message] The system which generated this result transmitted reference range : 150 - 328 10*3/?L. The reference range was not used to interpret this result as normal/abnormal . MPV (test code = 12.1 fL 9.8-13 53141-9) NRBC/100 WBC (test See_Comment [Automat ed code = 0774213388) message] The system which generated this result transmitted reference range : 0.0 - 10.0 /100 WBCs. The reference range was not used to interpret this result as normal/abnormal . NRBC x10^3 (test code <0.01 See_Comment [Auto mated = 4030133649) message] The system which generated this result transmitted reference range : 10*3/?L. The reference range was not used to interpret this result as normal/abnormal . GRAN MAT (NEUT) % 71.6 % (test code = 770-8) IMM GRAN % (test code 0.90 % = 1467503204) LYMPH % (test code = 18.3 % 736-9) MONO % (test code = 9.2 % 5905-5) EOS % (test code = 0.0 % 713-8) BASO % (test code = 0.0 % 706-2) GRAN MAT x10^3(ANC) 0.78 10*3/uL 1.99-6.95 L (test code = 5531881053) IMM GRAN x10^3 (test <0.03 0-0.06 code = 3004878602) LYMPH x10^3 (test 0.20 10*3/uL 1.09-3.23 L code = 731-0) MONO x10^3 (test code 0.10 10*3/uL 0.36-1.02 L = 742-7) EOS x10^3 (test code <0.03 0.06-0.53 L = 711-2) BASO x10^3 (test code <0.03 0.01-0.09 = 704-7) GOLDEN CELLS (test code 2+ See_Comment A [Auto mated = 1010-7) message] The system which generated this result transmitted reference range : (none). The reference range was not used to interpret this result as normal/abnormal . BANDS (test code = MARKED INCREASED A 6991618168) Lab Interpretation Abnormal (test code = 92173-8) [facility] METABOLIC PANEL (NA, K, CL, CO2, GLUCOSE, BUN, CREATININE, CA)2020-04-06 12:38:00 Test Item Value Reference Range Interpretation Comments NA (test code = 134 mmol/L 135-145 L 7265581977) K (test code = 4.5 mmol/L 3.5-5 3629947050) CL (test code = 105 mmol/L 98-108 1043949885) CO2 TOTAL (test code = 18 mmol/L 23-31 L 7111408636) AGAP (test code = 2-16 3350423174) BUN (test code = 30 mg/dL 7-23 H 2873967817) GLUCOSE (test code = 117 mg/dL 70-110 H 3233857039) CREATININE (test code = 1.95 mg/dL 0.6-1.25 H 3399200522) CALCIUM (test code = 8.6 mg/dL 8.6-10.6 9931631708) eGFR Calculation mL/min/1.73m2 (Non-) (test code = 2243246000) eGFR Calculation mL/min/1.73m2 () (test code = 9334878959) GILBERTO (test code = GILBERTO) Association of [...] tests). Lab Interpretation Abnormal (test code = 07222-2) [facility] 12:[facility]:00 Test Item Value Reference Range Interpretation Comments MAGNESIUM (test code = 5341157592) 2.3 mg/dL 1.7-2.4 Lab Interpretation (test code = Normal 40072-5) [facility] [id number] 23:28:32 Prominent gaseous distention of small bowel [...] pelvis. Note: Left hemidiaphragm isnot fully within [id number]-kt-dvmq. FINDINGS: Status post colectomy. Massive gaseous distention of the stomach and to lesser degree of smallbowel. Paucity of gas within the anorectal region and lower pelvis.Multiple surgical clips project over the right lower quadrant. Staplesproject over the midline. No pneumoperitoneum within limits of single AP technique. [facility], Radiant Results Inft User - 04/05/2020 6:29 PM CDTEXAM: XR KUBHISTORY: 50-year-old male status post total abdominal colectomy withileorectal anastomosis on 04/03/2020. History of colonic dysmotility.COMPARISON: CT abdomen 03/30/2020, CT abdomen 03/25/2020, acute abdominalseries 03/02/2020TECHNIQUE: AP views of the abdomen and pelvis.Note: Left hemidiaphragm isnot fully within yzayc-xh-uqsy.FINDINGS:Status post colectomy.Massive gaseous distention of the stomach [...] [facility] [id number] 23:22:45 Esophogastric tube tip projects over the stomach fundus. Redemonstration of extensive small bowel dilatation in the recentpostoperative setting status post total colectomy with ileoanalanastomosis. Findings may represent severe ileus. Correlate clinically. Preliminary Report Dictated by Resident: Louis Donnelly MD., have reviewed this study and agree with theabove report.EXAM: XRKUB HISTORY: post ngt placement COMPARISON: [facility] 04/05/2020 Technique: Single AP view of the upper abdomen. Note: Bilateralhemidiaphragms and upper abdomen are not within vqura-gj-vimy. FINDINGS: The tipof the esophogastric tube projects [...] CDTEXAM: XR KUBHISTORY: post ngt placement COMPARISON: [facility] 04/05/2020Technique: Single AP view of the upper abdomen. Note: Bilateralhemidiaphragms and upper abdomen are not within plshy-tn-rgxn.FINDINGS:The tip of the esophogastric tube projects over [...] and agree with theabove report.[facility] METABOLIC PANEL (NA, K, CL, CO2, GLUCOSE, BUN, CREATININE, CA)2020-04-05 11:08:00 Test Item Value Reference Range Interpretation Comments NA (test code = 137 mmol/L 135-145 9013292856) K (test code = 4.4 mmol/L 3.5-5 3805512738) CL (test code = 104 mmol/L 98-108 4728355861) CO2 TOTAL (test code = 24 mmol/L 23-31 8671090156) AGAP (test code = 2-16 7448007855) BUN (test code = 10 mg/dL 7-23 1018857277) GLUCOSE (test code = 104 mg/dL 70-110 1266458172) CREATININE (test code 1.18 mg/dL 0.6-1.25 = 5829304156) CALCIUM (test code = 8.7 mg/dL 8.6-10.6 0475177977) eGFR Calculation mL/min/1.73m2 (Non-) (test code = 0319887532) eGFR Calculation mL/min/1.73m2 () (test code = 0909811065) GILBERTO (test code = GILBERTO) Association of [...] Range Interpretation Comments MAGNESIUM (test code = 7396484872) 2.3 mg/dL 1.7-2.4 Lab Interpretation (test code = Normal 67140-5) [facility] WITH [id number] 10:32:00 Test Item Value Reference Range Interpretation [...] RDW-SD (test code = 47.8 fL 38.5-51.6 50278-2) RDW-CV (test code = 14.6 % 12.1-15.4 788-0) PLT (test code = See_Comment [Automated 777-3) message] The sy stem which generated this result transmitted reference range : 150 - 328 10*3/ ?L. The reference r meredith was not used to interpret this result as normal/abnormal . MPV (test code = 11.6 fL 9.8-13 10823-0) NRBC/100 WBC (test See_Comment [Automat ed code = 7767355964) message] The system which generated this result transmitted reference range : 0.0 - 10.0 /100 WBCs. The refer ence range was not u sed to interpret th is result as normal/abnormal . NRBC x10^3 (test code <0.01 See_Comment [Auto mated = 8180108666) message] The s ystem which generated this result transmitted reference range : 10*3/?L. The reference range was not used to interpret this result as normal/abnormal . GRAN MAT (NEUT) % 82.4 % (test code = 770-8) IMM GRAN % (test code 0.30 % = 5276447551) LYMPH % (test code = 12.4 % 736-9) MONO % (test code = 4.5 % 5905-5) EOS % (test code = 0.2 % 713-8) BASO % (test code = 0.2 % 706-2) GRAN MAT x10^3(ANC) 5.12 10*3/uL 1.99-6.95 (test code = 2796706419) IMM GRAN x10^3 (test <0.03 0-0.06 code = 7016358213) LYMPH x10^3 (test code 0.77 10*3/uL 1.09-3.23 L = 731-0) MONO x10^3 (test code 0.28 10*3/uL 0.36-1.02 L = 742-7) EOS x10^3 (test code = <0.03 0.06-0.53 L 711-2) BASO x10^3 (test code <0.03 0.01-0.09 = 704-7) Lab Interpretation Abnormal (test code = 41097-3) [facility] METABOLIC PANEL (NA, K, CL, CO2, GLUCOSE, BUN, CREATININE, CA)2020-04-04 11:02:00 Test Item Value Reference Range Interpretation Comments NA (test code = 135 mmol/L 135-145 8789344793) K (test code = 4.4 mmol/L 3.5-5 Slight 8253584155) hemolysis CL (test code = 103 mmol/L 98-108 8634305025) CO2 TOTAL (test code 26 mmol/L 23-31 = 0837760885) AGAP (test code = 2-16 7821880884) BUN (test code = 7 mg/dL 7-23 Slight 4790441168) hemolysis GLUCOSE (test code = 119 mg/dL 70-110 H 4895845187) CREATININE (test code 0.95 mg/dL 0.6-1.25 = 9046527022) CALCIUM (test code = 8.3 mg/dL 8.6-10.6 L 9645106525) eGFR Calculation mL/min/1.73m2 (Non-) (test code = 6186471457) eGFR Calculation mL/min/1.73m2 () (test code = 5084621433) GILBERTO (test code = GILBERTO) Association of [...] tests). Lab Interpretation Abnormal (test code = 75174-8) [facility]2020-08-12 11:02:00 Test Item Value Reference Range Interpretation Comments MAGNESIUM (test code = 3823034955) 1.7 mg/dL 1.7-2.4 Lab Interpretation (test code = Normal 36482-5) [facility] WITH [id number] 10:31:00 Test Item Value Reference Range Interpretation [...] RDW-SD (test code = 46.5 fL 38.5-51.6 41283-6) RDW-CV (test code = 14.3 % 12.1-15.4 788-0) PLT (test code = See_Comment L [Automated 777-3) message] The sy stem which generated this result transmitted reference range : 150 - 328 10*3/ ?L. The reference r meredith was not used to interpret this result as normal/abnormal . MPV (test code = 11.2 fL 9.8-13 02562-2) NRBC/100 WBC (test See_Comment [Automat ed code = 1428801852) message] The system which generated this result transmitted reference range : 0.0 - 10.0 /100 WBCs. The refer ence range was not u sed to interpret th is result as normal/abnormal . NRBC x10^3 (test code <0.01 See_Comment [Auto mated = 1495818234) message] The s ystem which generated this result transmitted reference range : 10*3/?L. The reference range was not used to interpret this result as normal/abnormal . GRAN MAT (NEUT) % 76.7 % (test code = 770-8) IMM GRAN % (test code 0.30 % = 5725170926) LYMPH % (test code = 16.4 % 736-9) MONO % (test code = 6.2 % 5905-5) EOS % (test code = 0.2 % 713-8) BASO % (test code = 0.2 % 706-2) GRAN MAT x10^3(ANC) 5.12 10*3/uL 1.99-6.95 (test code = 3488717805) IMM GRAN x10^3 (test <0.03 0-0.06 code = 0020996290) LYMPH x10^3 (test code 1.09 10*3/uL 1.09-3.23 = 731-0) MONO x10^3 (test code 0.41 10*3/uL 0.36-1.02 = 742-7) EOS x10^3 (test code = <0.03 0.06-0.53 L 711-2) BASO x10^3 (test code <0.03 0.01-0.09 = 704-7) Lab Interpretation Abnormal (test code = 49236-8) [facility] WITH [id number] 11:04:00 Test Item Value Reference Range Interpretation [...] RDW-SD (test code = 45.6 fL 38.5-51.6 28877-5) RDW-CV (test code = 14.0 % 12.1-15.4 788-0) PLT (test code = See_Comment L [Automated 777-3) message] The sy stem which generated this result transmitted reference range : 150 - 328 10*3/ ?L. The reference r meredith was not used to interpret this result as normal/abnormal . MPV (test code = 11.2 fL 9.8-13 19858-0) NRBC/100 WBC (test See_Comment [Automat ed code = 0861677022) message] The system which generated this result transmitted reference range : 0.0 - 10.0 /100 WBCs. The refer ence range was not u sed to interpret th is result as normal/abnormal . NRBC x10^3 (test code <0.01 See_Comment [Auto mated = 3591484099) message] The s ystem which generated this result transmitted reference range : 10*3/?L. The reference range was not used to interpret this result as normal/abnormal . GRAN MAT (NEUT) % 52.7 % (test code = 770-8) IMM GRAN % (test code 0.30 % = 7756111096) LYMPH % (test code = 34.6 % 736-9) MONO % (test code = 9.6 % 5905-5) EOS % (test code = 2.2 % 713-8) BASO % (test code = 0.6 % 706-2) GRAN MAT x10^3(ANC) 1.88 10*3/uL 1.99-6.95 L (test code = 0341488394) IMM GRAN x10^3 (test <0.03 0-0.06 code = 0556235797) LYMPH x10^3 (test code 1.23 10*3/uL 1.09-3.23 = 731-0) MONO x10^3 (test code 0.34 10*3/uL 0.36-1.02 L = 742-7) EOS x10^3 (test code = 0.08 10*3/uL 0.06-0.53 711-2) BASO x10^3 (test code <0.03 0.01-0.09 = 704-7) REACT LYMPHS (test Rare code = 4615170607) Lab Interpretation Abnormal (test code = 58415-1) [facility] METABOLIC PANEL (NA, K, CL, CO2, GLUCOSE, BUN, CREATININE, CA)2020-04-03 10:54:00 Test Item Value Reference Range Interpretation Comments NA (test code = 140 mmol/L 135-145 6880996001) K (test code = 3.9 mmol/L 3.5-5 0832283978) CL (test code = 107 mmol/L 98-108 8802515122) CO2 TOTAL (test code = 28 mmol/L 23-31 7902093202) AGAP (test code = 2-16 4821172601) BUN (test code = 4 mg/dL 7-23 L 1062323463) GLUCOSE (test code = 88 mg/dL 70-110 9332338924) CREATININE (test code = 0.96 mg/dL 0.6-1.25 9590443229) CALCIUM (test code = 8.6 mg/dL 8.6-10.6 7225179729) eGFR Calculation mL/min/1.73m2 (Non-) (test code = 6212223858) eGFR Calculation mL/min/1.73m2 () (test code = 2560943411) GILBERTO (test code = GILBERTO) Association of [...] tests). Lab Interpretation Abnormal (test code = 91318-5) [facility]MAG[facility]UM2020-08-11 10:54:00 Test Item Value Reference Range Interpretation Comments MAGNESIUM (test code = 1846271266) 2.0 mg/dL 1.7-2.4 Lab Interpretation (test code = Normal 55881-7) [facility] CampusType and Screen - ONCE [id number] 23:40:25 Test Item Value Reference Range Interpretation Comments ABO & RH (test code O POSITIVE Performe d at [facility] = 20) [facility] s [id number] Free: [phone] A No. [id number] IAT (test code = Negative Performed a t [facility] 1185) [facility] s [address]Ihar Free: [phone] A No. [id number] [facility] CampusCBC WITH [id number] 11:21:00 Test Item Value Reference Range Interpretation [...] RDW-SD (test code = 45.8 fL 38.5-51.6 64659-1) RDW-CV (test code = 14.2 % 12.1-15.4 788-0) PLT (test code = See_Comment L [Automated 777-3) message] The sy stem which generated this result transmitted reference range : 150 - 328 10*3/ ?L. The reference r meredith was not used to interpret this result as normal/abnormal . MPV (test code = 10.6 fL 9.8-13 94287-8) NRBC/100 WBC (test See_Comment [Automat ed code = 3168971315) message] The system which generated this result transmitted reference range : 0.0 - 10.0 /100 WBCs. The refer ence range was not u sed to interpret th is result as normal/abnormal . NRBC x10^3 (test code <0.01 See_Comment [Auto mated = 9798439055) message] The s ystem which generated this result transmitted reference range : 10*3/?L. The reference range was not used to interpret this result as normal/abnormal . GRAN MAT (NEUT) % 46.4 % (test code = 770-8) IMM GRAN % (test code 0.30 % = 9868933402) LYMPH % (test code = 38.8 % 736-9) MONO % (test code = 10.5 % 5905-5) EOS % (test code = 3.3 % 713-8) BASO % (test code = 0.7 % 706-2) GRAN MAT x10^3(ANC) 1.41 10*3/uL 1.99-6.95 L (test code = 7126357441) IMM GRAN x10^3 (test <0.03 0-0.06 code = 8761494563) LYMPH x10^3 (test code 1.18 10*3/uL 1.09-3.23 = 731-0) MONO x10^3 (test code 0.32 10*3/uL 0.36-1.02 L = 742-7) EOS x10^3 (test code = 0.10 10*3/uL 0.06-0.53 711-2) BASO x10^3 (test code <0.03 0.01-0.09 = 704-7) HYPERSEG NEUTS (test Present See_Comment A [Autom ated code = 765-8) message] The s [employer] which generated this result transmitted reference range : (none). The reference range was not used to interpret this result as normal/abnormal . Lab Interpretation Abnormal (test code = 18829-4) [facility] (NA, K, CL, CO2, GLUCOSE, BUN, CREATININE, CA)2020-04-02 11:05:00 Test Item Value Reference Range Interpretation Comments NA (test code = 139 mmol/L 135-145 8723447118) K (test code = 4.0 mmol/L 3.5-5 6431196941) CL (test code = 108 mmol/L 98-108 9150763970) CO2 TOTAL (test code = 25 mmol/L 23-31 6504556635) AGAP (test code = 2-16 4553961617) BUN (test code = 6 mg/dL 7-23 L 7042198966) GLUCOSE (test code = 99 mg/dL 70-110 5210801575) CREATININE (test code = 0.92 mg/dL 0.6-1.25 8686814054) CALCIUM (test code = 8.3 mg/dL 8.6-10.6 L 1083253518) eGFR Calculation mL/min/1.73m2 (Non-) (test code = 1202779269) eGFR Calculation mL/min/1.73m2 () (test code = 5063173404) GILBERTO (test code = GILBERTO) Association of [...] tests). Lab Interpretation Abnormal (test code = 80367-4) [facility] CampusMAGN[facility]IUM2020-08-10 11:05:00 Test Item Value Reference Range Interpretation Comments MAGNESIUM (test code = 7323413724) 2.0 mg/dL 1.7-2.4 Lab Interpretation (test code = Normal 40952-0) [facility] CampusCOVID-19 (ID NOW RAPID TESTING)2020-04-02 00:43:00 Test Item Value Reference Range Interpretation Comments SARS-CoV-2 Rapid ID NOW Not Detected Not Detected (test code = 86118-9) GILBERTO (test code = GILBERTO) ID NOW COVID-19 Assay is an isothermal nucleic acid amplification test intended for the qualitative detection of nucleic acid from SARS-CoV-2 viral RNA in nasopharyngeal (INFORMATICS SPEC) specimens. It is used under Emergency Use [...] indicated. Lab Interpretation Normal (test code = 81590-2) [facility] CampusUrinalysis2020-08-08 11:39:00 Test Item Value Reference Range Interpretation Comments APPEARANCE (test code = Hazy Clear A 3514263862) COLOR (test code = Yellow Yellow 7549351257) PH (test code = 4.8-8.0 7603359626) SP GRAVITY (test code = 1.003-1.030 H 4899110586) GLU U QUAL (test code = Normal Normal 5175783174) BLOOD (test code = Negative Negative 1803224398) KETONES (test code = 5 mg/dL Negative A 0886272677) PROTEIN (test code = Negative Negative 2887-8) UROBILIN (test code = 2.0 mg/dL Normal A 2043383432) BILIRUBIN (test code = Negative Negative 1189759462) NITRITE (test code = Negative Negative 8579788166) LEUK ROGER (test code = Negative Negative 9622066353) RBC/HPF (test code = See_Comment [Autom ated message] 9181286177) The system [employer] generated this result transmit dain reference range : 0 - 3 HPF. The refe rence range was not u sed to interpret th is result as normal/abnormal . WBC/HPF (test code = See_Comment [Autom ated message] 5699553691) The system [employer] generated this result transmit dain reference range : 0 - 5 HPF. The refe rence range was not u sed to interpret th is result as normal/abnormal . BACTERIA (test code = Negative Negative 3462214483) CA OXALATE (test code = See_Comment H [Au tomated message] 1413181880) The system The [employer] generated this result transmit dain reference range : <=1 HPF. The refere nce range was not u sed to interpret th is result as normal/abnormal . Lab Interpretation (test Abnormal code = 70795-8) [facility] CampusCT ABDOMEN PELVIS W [id number] 00:38:37 1. ?Massive air distention of the [...] focal loculated drainable fluidcollection.RL: 460END OF REPORT UnNorth [facility] CampusBabluegrass [facility] hospital Metabolic Panel (NA, K, CL, CO2, GLUCOSE, BUN, CREATININE, CA)2020-03-30 23:45:00 Test Item Value Reference Range Interpretation Comments NA (test code = 140 mmol/L 135-145 4517945589) K (test code = 4.3 mmol/L 3.5-5 1577693516) CL (test code = 101 mmol/L 98-108 0958030211) CO2 TOTAL (test code = 28 mmol/L 23-31 6154213037) AGAP (test code = 2-16 7911105775) BUN (test code = 24 mg/dL 7-23 H 7322034100) GLUCOSE (test code = 90 mg/dL 70-110 7480877469) CREATININE (test code = 1.29 mg/dL 0.6-1.25 H 2439475478) CALCIUM (test code = 9.4 mg/dL 8.6-10.6 1694223658) eGFR Calculation mL/min/1.73m2 (Non-) (test code = 8284186760) eGFR Calculation mL/min/1.73m2 () (test code = 6233573215) GILBERTO (test code = GILBERTO) Association of [...] tests). Lab Interpretation Abnormal (test code = 57438-7) [facility] 1 [id number] 23:00:46 No evidence for an acute cardiopulmonary [...] on the March 02, 2020 exam.RL: 3708 [facility] [id number] 22:39:00 Test Item Value Reference Range Interpretation Comments TROPONIN I (test 0.008 ng/mL See_Comment [Automated code = 2923425250) message] The system which generated this result [...] ? Lab Interpretation Normal (test code = 06073-5) [facility] CampusN-TERMINAL PAY-[id number] 22:39:00 Test Item Value Reference Range Interpretation Comments NT-proBNP (test code 42 pg/mL See_Comment [Autom ated = 8841376372) message] The system which generated this result transmitted reference range : <=125. The reference range was not used to interpret this result as normal/abnormal . GILBERTO (test code = GILBERTO) Biotin has been reported to cause a negative bias, interpret results relative to patient's use of biotin. Lab Interpretation Normal (test code = 80559-7) [facility] CampusHepatic Function Panel (ALB, T.PRO, BILI T, BU/BC, ALT, AST, ALK PHOS)2020-03-30 22:27:00 Test Item Value Reference Range Interpretation Comments TOTAL BILI (test code = 6736451525) 0.5 mg/dL 0.1-1.1 BILI UNCON (test code = 5583921601) 0.3 mg/dL 0.1-1.1 BILI CONJ (test code = 2847761016) 0.0 mg/dL 0-0.3 T PROTEIN (test code = 8569188329) 6.7 g/dL 6.3-8.2 ALBUMIN (test code = 4870779222) 4.5 g/dL 3.5-5 ALK PHOS (test code = 4429227165) 57 U/L 34-122 ALTv (test code = 1742-6) 31 U/L 5-50 AST(SGOT) (test code = 4086740897) 38 U/L 13-40 Lab Interpretation (test code = Normal 77039-0) [facility] CampusLipase [id number] 22:27:00 Test Item Value Reference Range Interpretation Comments LIPASE (test code = 1441190306) 62 U/L 0-220 Lab Interpretation (test code = Normal 72896-4) [facility] CampusaPTT2020-08-07 22:25:00 Test Item Value Reference Range Interpretation Comments APTT Patient (test code = See_Comment [ Automated message] 3173-2) The system [employer] h generated this result transmitted ref erence range: 26 - 36 Seconds. The re ference range was not u sed to interpret this result as normal/abnor mal. Lab Interpretation (test Normal code = 90644-9) [facility] CampusProthrombin Time (PT) / [id number] 22:25:00 Test Item Value Reference Range Interpretation [...] tions. Lab Interpretation (test Normal code = 55186-2) [facility] CampusCBC with [id number] 22:17:00 Test Item Value Reference Range Interpretation Comments WBC (test code = See_Comment [Automated 2490-2) message] The sy stem which generated this [...] RDW-SD (test code = 46.9 fL 38.5-51.6 36418-5) RDW-CV (test code = 14.3 % 12.1-15.4 788-0) PLT (test code = See_Comment [Automated 777-3) message] The sy stem which generated this result transmitted reference range : 150 - 328 10*3/ ?L. The reference r meredith was not used to interpret this result as normal/abnormal . MPV (test code = 10.7 fL 9.8-13 44732-3) NRBC/100 WBC (test See_Comment [Automat ed code = 2664024973) message] The system which generated this result transmitted reference range : 0.0 - 10.0 /100 WBCs. The refer ence range was not u sed to interpret th is result as normal/abnormal . NRBC x10^3 (test code <0.01 See_Comment [Auto mated = 1167177510) message] The s ystem which generated this result transmitted reference range : 10*3/?L. The reference range was not used to interpret this result as normal/abnormal . GRAN MAT (NEUT) % 51.7 % (test code = 770-8) IMM GRAN % (test code 0.40 % = 6475294658) LYMPH % (test code = 32.8 % 736-9) MONO % (test code = 12.4 % 5905-5) EOS % (test code = 2.1 % 713-8) BASO % (test code = 0.6 % 706-2) GRAN MAT x10^3(ANC) 2.76 10*3/uL 1.99-6.95 (test code = 0719725404) IMM GRAN x10^3 (test <0.03 0-0.06 code = 2804297812) LYMPH x10^3 (test code 1.75 10*3/uL 1.09-3.23 = 731-0) MONO x10^3 (test code 0.66 10*3/uL 0.36-1.02 = 742-7) EOS x10^3 (test code = 0.11 10*3/uL 0.06-0.53 711-2) BASO x10^3 (test code 0.03 10*3/uL 0.01-0.09 = 704-7) Lab Interpretation Abnormal (test code = 16507-3) [facility] with [id number] 10:26:00 Test Item Value Reference Range Interpretation [...] RDW-SD (test code = 46.3 fL 38.5-51.6 82600-6) RDW-CV (test code = 14.2 % 12.1-15.4 788-0) PLT (test code = See_Comment L [Automated 777-3) message] The sy stem which generated this result transmitted reference range : 150 - 328 10*3/ ?L. The reference r meredith was not used to interpret this result as normal/abnormal . MPV (test code = 10.6 fL 9.8-13 90238-0) NRBC/100 WBC (test See_Comment [Automat ed code = 2470164613) message] The system which generated this result transmitted reference range : 0.0 - 10.0 /100 WBCs. The refer ence range was not u sed to interpret th is result as normal/abnormal . NRBC x10^3 (test code <0.01 See_Comment [Auto mated = 7793707690) message] The s ystem which generated this result transmitted reference range : 10*3/?L. The reference range was not used to interpret this result as normal/abnormal . GRAN MAT (NEUT) % 51.3 % (test code = 770-8) IMM GRAN % (test code 0.30 % = 4496284862) LYMPH % (test code = 32.2 % 736-9) MONO % (test code = 12.7 % 5905-5) EOS % (test code = 3.0 % 713-8) BASO % (test code = 0.5 % 706-2) GRAN MAT x10^3(ANC) 1.89 10*3/uL 1.99-6.95 L (test code = 0289685159) IMM GRAN x10^3 (test <0.03 0-0.06 code = 4273377943) LYMPH x10^3 (test code 1.19 10*3/uL 1.09-3.23 = 731-0) MONO x10^3 (test code 0.47 10*3/uL 0.36-1.02 = 742-7) EOS x10^3 (test code = 0.11 10*3/uL 0.06-0.53 711-2) BASO x10^3 (test code <0.03 0.01-0.09 = 704-7) Lab Interpretation Abnormal (test code = 69997-2) [facility] CampusMagnesium [id number] 10:17:00 Test Item Value Reference Range Interpretation Comments MAGNESIUM (test code = 9040032575) 2.0 mg/dL 1.7-2.4 Lab Interpretation (test code = Normal 23892-5) [facility] CampusBabluegrass [facility] hospital Metabolic Panel (NA, K, CL, CO2, GLUCOSE, BUN, CREATININE, CA)2020-03-26 10:17:00 Test Item Value Reference Range Interpretation Comments NA (test code = 136 mmol/L 135-145 0609235074) K (test code = 4.6 mmol/L 3.5-5 Slight 2024916385) hemolysis CL (test code = 109 mmol/L 98-108 H 3611632291) CO2 TOTAL (test code 26 mmol/L 23-31 = 5117429991) AGAP (test code = 2-16 L 2336457976) BUN (test code = 22 mg/dL 7-23 Slight 3217140265) hemolysis GLUCOSE (test code = 82 mg/dL 70-110 7350216592) CREATININE (test code 0.88 mg/dL 0.6-1.25 = 8334380457) CALCIUM (test code = 8.1 mg/dL 8.6-10.6 L 6691472019) eGFR Calculation mL/min/1.73m2 (Non-) (test code = 8052850832) eGFR Calculation mL/min/1.73m2 () (test code = 6128598559) GILBERTO (test code = GILBERTO) Association of [...] tests). Lab Interpretation Abnormal (test code = 82371-4) [facility] CampusLactic Acid Whole [id number] 04:22:00 Test Item Value Reference Range Interpretation Comments LACTIC ACID (test code = 1.52 mmol/L 4392427732) [facility] CampusPhosphorus [id number] 03:37:00 Test Item Value Reference Range Interpretation Comments PHOSPHORUS (test code = 7367688152) 4.6 mg/dL 2.5-5 Lab Interpretation (test code = Normal 53907-8) [facility] CampusMAGNESIUM2020-08-03 03:37:00 Test Item Value Reference Range Interpretation Comments MAGNESIUM (test code = 6171059605) 2.3 mg/dL 1.7-2.4 Lab Interpretation (test code = Normal 31688-0) [facility] CampusCOVID-19 (ID NOW RAPID TESTING)2020-03-26 02:24:00 Test Item Value Reference Range Interpretation Comments SARS-CoV-2 Rapid ID NOW Not Detected Not Detected (test code = 76196-5) GILBERTO (test code = GILBERTO) ID NOW COVID-19 Assay is an isothermal nucleic acid amplification test intended for the qualitative detection of nucleic acid from SARS-CoV-2 viral RNA in nasopharyngeal (INFORMATICS SPEC) specimens. It is used under Emergency Use [...] indicated. Lab Interpretation Normal (test code = 91503-1) [facility] CampusCT ABDOMEN PELVIS W [id number] 01:33:06 Redemonstration of severe dilatation of the [...] bowel inflammation or wall thickening.. [facility] (NA, K, CL, CO2, GLUCOSE, BUN, CREATININE, CA)2020-03-26 00:57:00 Test Item Value Reference Range Interpretation Comments NA (test code = 139 mmol/L 135-145 0805634979) K (test code = 4.4 mmol/L 3.5-5 6473749017) CL (test code = 105 mmol/L 98-108 4028008315) CO2 TOTAL (test code = 29 mmol/L 23-31 8623272372) AGAP (test code = 2-16 2519414395) BUN (test code = 28 mg/dL 7-23 H 8686043755) GLUCOSE (test code = 84 mg/dL 70-110 9377910707) CREATININE (test code = 1.19 mg/dL 0.6-1.25 3802100792) CALCIUM (test code = 8.9 mg/dL 8.6-10.6 6676941558) eGFR Calculation mL/min/1.73m2 (Non-) (test code = 8031918329) eGFR Calculation mL/min/1.73m2 () (test code = 1242191858) GILBERTO (test code = GILBERTO) Association of [...] tests). Lab Interpretation Abnormal (test code = 19796-4) [facility] CampusHepatic Function Panel (ALB, T.PRO, BILI T, BU/BC, ALT, AST, ALK PHOS)2020-03-26 00:57:00 Test Item Value Reference Range Interpretation Comments TOTAL BILI (test code = 5753405139) 0.2 mg/dL 0.1-1.1 BILI UNCON (test code = 9239129802) 0.0 mg/dL 0.1-1.1 L BILI CONJ (test code = 4989126270) 0.0 mg/dL 0-0.3 T PROTEIN (test code = 2300020567) 6.2 g/dL 6.3-8.2 L ALBUMIN (test code = 9337058062) 4.1 g/dL 3.5-5 ALK PHOS (test code = 3595836762) 56 U/L 34-122 ALTv (test code = 1742-6) 24 U/L 5-50 AST(SGOT) (test code = 5876113748) 28 U/L 13-40 Lab Interpretation (test code = Abnormal 10830-2) [facility] with Qdwyqbkmetap3010-36-52 00:47:00 Test Item Value Reference Range Interpretation [...] RDW-SD (test code = 45.9 fL 38.5-51.6 24382-4) RDW-CV (test code = 14.0 % 12.1-15.4 788-0) PLT (test code = See_Comment [Automated 777-3) message] The sy stem which generated this result transmitted reference range : 150 - 328 10*3/ ?L. The reference r meredith was not used to interpret this result as normal/abnormal . MPV (test code = 10.9 fL 9.8-13 68069-2) NRBC/100 WBC (test See_Comment [Automat ed code = 4181983467) message] The system which generated this result transmitted reference range : 0.0 - 10.0 /100 WBCs. The refer ence range was not u sed to interpret th is result as normal/abnormal . NRBC x10^3 (test code <0.01 See_Comment [Auto mated = 2846079849) message] The s ystem which generated this result transmitted reference range : 10*3/?L. The reference range was not used to interpret this result as normal/abnormal . GRAN MAT (NEUT) % 49.8 % (test code = 770-8) IMM GRAN % (test code 0.20 % = 1785604768) LYMPH % (test code = 32.0 % 736-9) MONO % (test code = 14.3 % 5905-5) EOS % (test code = 3.0 % 713-8) BASO % (test code = 0.7 % 706-2) GRAN MAT x10^3(ANC) 2.29 10*3/uL 1.99-6.95 (test code = 9759373537) IMM GRAN x10^3 (test <0.03 0-0.06 code = 3517249751) LYMPH x10^3 (test code 1.47 10*3/uL 1.09-3.23 = 731-0) MONO x10^3 (test code 0.66 10*3/uL 0.36-1.02 = 742-7) EOS x10^3 (test code = 0.14 10*3/uL 0.06-0.53 711-2) BASO x10^3 (test code 0.03 10*3/uL 0.01-0.09 = 704-7) Lab Interpretation Abnormal (test code = 48495-7) [facility] CampusMagnesium [id number] 05:23:00 Test Item Value Reference Range Interpretation Comments MAGNESIUM (test code = 9023828410) 2.1 mg/dL 1.7-2.4 Lab Interpretation (test code = Normal 16132-1) [facility] CampusCOVID-19 (ID NOW RAPID TESTING)2020-03-03 04:45:00 Test Item Value Reference Range Interpretation Comments SARS-CoV-2 Rapid ID NOW Not Detected Not Detected (test code = 04253-3) GILBERTO (test code = GILBERTO) ID NOW COVID-19 Assay is an isothermal nucleic acid amplification test intended for the qualitative detection of nucleic acid from SARS-CoV-2 viral RNA in nasopharyngeal (INFORMATICS SPEC) specimens. It is used under Emergency Use [...] indicated. Lab Interpretation Normal (test code = 35101-3) [facility] CampusProthrombin Time / [id number] 04:40:00 Test Item Value Reference Range Interpretation Comments PROTIME PATIENT (test See_Comment [Auto mated message] code = 5964-2) The system 10-20 Media generated this result transmitted ref erence range: 10.1 - 1 2.6 Seconds. The re ference range was not u sed to interpret this result as normal/abnor mal. INR (test code = 6301-6) Nor mal INR <1.1; Warfarin Therap eutic range 2.0 to 3. 0 or 2.5 to 3.5, dep ending upon the indica tions. Lab Interpretation (test Normal code = 31083-3) [facility] CampusaPTT2020-07-11 04:40:00 Test Item Value Reference Range Interpretation Comments APTT Patient (test code = See_Comment [ Automated message] 3173-2) The system Telisma h generated this result transmitted ref erence range: 26 - 36 Seconds. The re ference range was not u sed to interpret this result as normal/abnor mal. Lab Interpretation (test Normal code = 26019-5) [facility] CampusPhosphorus [id number] 04:31:00 Test Item Value Reference Range Interpretation Comments PHOSPHORUS (test code = 8476030872) 4.0 mg/dL 2.5-5 Lab Interpretation (test code = Normal 69133-3) [facility] CampusXR ABDOMEN ACUTE [id number] 02:54:09 Impression: No radiographic evidence for acute cardiopulmonary disease. No radiographic evidence forpneumoperitoneum. Marked gaseous distention of predominantly large bowel loops in the abdomenand pelvis, similar to prior CT of 02/26/2020. On that CT, there was atransition in the distal descending colon, without mass lesion or definitesigmoid volvulus appreciated. RL: 460 AFC: 41978 Indication: Diffuse abdominal pain, obstructionComparison: CT the [...] lesion or definitesigmoid volvulus appreciated. RL: 460AFC: 63851Dldxjkcegzlrug signed by Angeli Carrillo MD, PhD at 03/02/2020 9:54 PM [facility] CampusUrinalysis2020-07-11 01:50:00 Test Item Value Reference Range Interpretation Comments APPEARANCE (test code = Hazy Clear A 1785521915) COLOR (test code = Tahira Yellow A 7239995255) PH (test code = 4.8-8.0 2585411645) SP GRAVITY (test code = 1.003-1.030 1321171768) GLU U QUAL (test code = Normal Normal 5810868434) BLOOD (test code = Negative Negative 5993935231) KETONES (test code = 5 mg/dL Negative A 0337550955) PROTEIN (test code = Negative Negative 2887-8) UROBILIN (test code = 2.0 mg/dL Normal A 4242339166) BILIRUBIN (test code = Negative Negative 2517208986) NITRITE (test code = Negative Negative 1889665236) LEUK ROGER (test code = Negative Negative 3365556880) RBC/HPF (test code = See_Comment [Autom ated message] 6072815314) The system The Dodo generated this result transmit dain reference range : 0 - 3 HPF. The refe rence range was not u sed to interpret th is result as normal/abnormal . WBC/HPF (test code = See_Comment [Autom ated message] 0188389955) The system The Dodo generated this result transmit dain reference range : 0 - 5 HPF. The refe rence range was not u sed to interpret th is result as normal/abnormal . BACTERIA (test code = Negative Negative 0355401830) MUCOUS (test code = Slight Negative LPF A 1964113824) SQ EPITH (test code = <1 See_Comment [Auto mated message] 5434764445) The system The Dodo generated this result transmit dain reference range : <=2 HPF. The refere nce range was not u sed to interpret th is result as normal/abnormal . CA OXALATE (test code = See_Comment H [Au tomated message] 9939746482) The system The Dodo generated this result transmit dain reference range : <=1 HPF. The refere nce range was not u sed to interpret th is result as normal/abnormal . SPERM (test code = See_Comment [Automat ed message] 4404007996) The system The Dodo generated this result transmit dain reference range : <=1 HPF. The refere nce range was not u sed to interpret th is result as normal/abnormal . Lab Interpretation (test Abnormal code = 35934-9) [facility] Metabolic Panel (NA, K, CL, CO2, GLUCOSE, BUN, CREATININE, CA)2020-03-03 01:44:00 Test Item Value Reference Range Interpretation Comments NA (test code = 140 mmol/L 135-145 3563529215) K (test code = 4.1 mmol/L 3.5-5 3244201581) CL (test code = 106 mmol/L 98-108 6784517185) CO2 TOTAL (test code = 25 mmol/L 23-31 6342420929) AGAP (test code = 2-16 9308680070) BUN (test code = 17 mg/dL 7-23 6710612976) GLUCOSE (test code = 91 mg/dL 70-110 9092421837) CREATININE (test code 1.13 mg/dL 0.6-1.25 = 9261343560) CALCIUM (test code = 9.0 mg/dL 8.6-10.6 4391906236) eGFR Calculation mL/min/1.73m2 (Non-) (test code = 1596444537) eGFR Calculation mL/min/1.73m2 () (test code = 8223943856) GILBERTO (test code = GILBERTO) Association of [...] Interpretation Comments TOTAL BILI (test code = 6417994858) 0.4 mg/dL 0.1-1.1 BILI UNCON (test code = 9774139459) 0.4 mg/dL 0.1-1.1 BILI CONJ (test code = 9869371923) 0.0 mg/dL 0-0.3 T PROTEIN (test code = 8389941981) 6.3 g/dL 6.3-8.2 ALBUMIN (test code = 8391313702) 4.2 g/dL 3.5-5 ALK PHOS (test code = 4290821833) 43 U/L 34-122 ALTv (test code = 1742-6) 20 U/L 5-50 AST(SGOT) (test code = 1493055472) 26 U/L 13-40 Lab Interpretation (test code = Normal 97259-4) [facility] CampusCBC WITH [id number] 01:37:00 Test Item Value Reference Range Interpretation [...] RDW-SD (test code = 45.0 fL 38.5-51.6 80930-2) RDW-CV (test code = 13.7 % 12.1-15.4 788-0) PLT (test code = See_Comment [Automated 777-3) message] The sy stem which generated this result transmitted reference range : 150 - 328 10*3/ ?L. The reference r meredith was not used to interpret this result as normal/abnormal . MPV (test code = 11.3 fL 9.8-13 19111-4) NRBC/100 WBC (test See_Comment [Automat ed code = 9330490610) message] The system which generated this result transmitted reference range : 0.0 - 10.0 /100 WBCs. The refer ence range was not u sed to interpret th is result as normal/abnormal . NRBC x10^3 (test code <0.01 See_Comment [Auto mated = 1463662498) message] The s ystem which generated this result transmitted reference range : 10*3/?L. The reference range was not used to interpret this result as normal/abnormal . GRAN MAT (NEUT) % 53.2 % (test code = 770-8) IMM GRAN % (test code 0.20 % = 8064939838) LYMPH % (test code = 34.5 % 736-9) MONO % (test code = 9.7 % 5905-5) EOS % (test code = 1.8 % 713-8) BASO % (test code = 0.6 % 706-2) GRAN MAT x10^3(ANC) 2.69 10*3/uL 1.99-6.95 (test code = 0825720276) IMM GRAN x10^3 (test <0.03 0-0.06 code = 8240650468) LYMPH x10^3 (test code 1.74 10*3/uL 1.09-3.23 = 731-0) MONO x10^3 (test code 0.49 10*3/uL 0.36-1.02 = 742-7) EOS x10^3 (test code = 0.09 10*3/uL 0.06-0.53 711-2) BASO x10^3 (test code 0.03 10*3/uL 0.01-0.09 = 704-7) Lab Interpretation Abnormal (test code = 19627-6) [facility] CampusLactic Acid Whole [id number] 01:28:00 Test Item Value Reference Range Interpretation Comments LACTIC ACID (test code = 1.62 mmol/L 4690298935) [facility] CampusDRUG PANEL 2 [id number] 22:13:00 Test Item Value Reference Range Interpretation Comments AMPHET (test code = Negative Negative 2122324107) LOS U (test code = Negative Negative 2148033372) BENZO U (test code = Negative Negative 9749149795) Cocaine Metabolite (test Negative Negative code = 0355493885) METHADONE (test code = Negative Negative 5828210962) OPIATES (test code = Negative Negative 9989002775) PCP (test code = Negative Negative 5141595594) THC (test code = Negative Negative 1096173044) GILBERTO (test code = GILBERTO) Urine Drug [...] testing). Lab Interpretation (test Normal code = 08670-2) [facility] CampusTHYROID STIMULATING [id number] 19:02:00 Test Item Value Reference Range Interpretation Comments TSH (test code = See_Comment [Automated message] 8198954299) The system The Dodo generated this result transmitted ref erence range: 0.45 - 4 .70 mIU/L. The refe rence range was not u sed to interpret this result as normal/abnor mal. Lab Interpretation (test Normal code = 80919-8) [facility] [id number] 18:49:00 Test Item Value Reference Range Interpretation Comments FREE T3 (test code = 7780297760) 2.56 pg/mL 2.77-5.27 L Lab Interpretation (test code = Abnormal 38591-8) [facility] [id number] 18:49:00 Test Item Value Reference Range Interpretation Comments FREE T4 (test code = See_Comment [Autom ated message] 7905537501) The system The Dodo generated this result transmitted ref erence range: 0.78 - 2 .20 ng/dL:. The ref erence range was not u sed to interpret this result as normal/abnor mal. Lab Interpretation (test Normal code = 71406-6) [facility] ABDOMEN PELVIS W [id number] 20:56:47 Persistent marked severe dilatation of the [...] No focal hepatic lesions. Normal contour. Hepatomegaly, ypvxqasgu50.7 cm, in the craniocaudal dimension. Diffuse hypoattenuation [...] No focal hepatic lesions. Normal contour. Hepatomegaly, gzzgumtch19.7 cm, in the craniocaudal dimension. Diffuse hypoattenuation [...] Not Detected Not Detected (test code = 57810-8) GILBERTO (test code = GILBERTO) ID NOW COVID-19 Assay is an isothermal nucleic acid amplification test intended for the qualitative detection of nucleic acid from SARS-CoV-2 viral RNA in nasopharyngeal (INFORMATICS SPEC) specimens. It is used under Emergency Use [...] indicated. Lab Interpretation Normal (test code = 55536-8) [facility] CampusXR ABDOMEN ACUTE [id number] 05:00:33 Impression: No radiographic evidence for acute cardiopulmonary disease. Marked gaseous distention ofthe colon, with a relative paucity of gas inthe distal sigmoid colon and rectum. This may reflect pseudoobstruction,but mechanical distal colonic obstruction cannot be excluded. RL: 460 AFC: 93525 Ordering physician: SABI Taborcation: Abdominal distention Comparison: [...] distal colonic obstruction cannot be excluded.RL: 460AF: [id number] signed by Angeli Carrillo MD, PhD at 02/26/2020 12:00 AM[facility] CampusBabl[facility] Met[facility] (NA, K, CL, CO2, GLUCOSE, BUN, CREATININE, CA)2020-02-26 04:03:00 Test Item Value Reference Range Interpretation Comments NA (test code = 142 mmol/L 135-145 4366639144) K (test code = 4.1 mmol/L 3.5-5 9864951803) CL (test code = 107 mmol/L 98-108 9820477276) CO2 TOTAL (test code = 29 mmol/L 23-31 9953171729) AGAP (test code = 2-16 3143489187) BUN (test code = 13 mg/dL 7-23 1200160769) GLUCOSE (test code = 82 mg/dL 70-110 3208786990) CREATININE (test code 1.14 mg/dL 0.6-1.25 = 4890045299) CALCIUM (test code = 9.5 mg/dL 8.6-10.6 0261431983) eGFR Calculation mL/min/1.73m2 (Non-) (test code = 7475344994) eGFR Calculation mL/min/1.73m2 () (test code = 8201592204) GILBERTO (test code = GILBERTO) Association of [...] Interpretation Comments TOTAL BILI (test code = 3715414544) 0.5 mg/dL 0.1-1.1 BILI UNCON (test code = 6954126286) 0.5 mg/dL 0.1-1.1 BILI CONJ (test code = 1813493666) 0.0 mg/dL 0-0.3 T PROTEIN (test code = 3359432875) 6.2 g/dL 6.3-8.2 L ALBUMIN (test code = 4583344755) 4.2 g/dL 3.5-5 ALK PHOS (test code = 7541787170) 40 U/L 34-122 ALTv (test code = 1742-6) 20 U/L 5-50 AST(SGOT) (test code = 1596259195) 26 U/L 13-40 Lab Interpretation (test code = Abnormal 31535-2) [facility] CampusLipase [id number] 04:03:00 Test Item Value Reference Range Interpretation Comments LIPASE (test code = 0710372961) 57 U/L 0-220 Lab Interpretation (test code = Normal 65045-6) [facility] CampusLactic Acid Whole [id number] 03:52:00 Test Item Value Reference Range Interpretation Comments LACTIC ACID (test code = 1.66 mmol/L 0.5-2.2 7683553021) [facility] CampusCB WITH [id number] 03:47:00 Test Item Value Reference Range Interpretation [...] RDW-SD (test code = 45.1 fL 38.5-51.6 46381-2) RDW-CV (test code = 13.7 % 12.1-15.4 788-0) PLT (test code = See_Comment [Automated 777-3) message] The sy stem which generated this result transmitted reference range : 150 - 328 10*3/ ?L. The reference r meredith was not used to interpret this result as normal/abnormal . MPV (test code = 10.7 fL 9.8-13 32385-7) NRBC/100 WBC (test See_Comment [Automat ed code = 6280992717) message] The system which generated this result transmitted reference range : 0.0 - 10.0 /100 WBCs. The refer ence range was not u sed to interpret th is result as normal/abnormal . NRBC x10^3 (test code <0.01 See_Comment [Auto mated = 4308258330) message] The s ystem which generated this result transmitted reference range : 10*3/?L. The reference range was not used to interpret this result as normal/abnormal . GRAN MAT (NEUT) % 63.1 % (test code = 770-8) IMM GRAN % (test code 0.40 % = 4992308263) LYMPH % (test code = 25.1 % 736-9) MONO % (test code = 9.9 % 5905-5) EOS % (test code = 1.1 % 713-8) BASO % (test code = 0.4 % 706-2) GRAN MAT x10^3(ANC) 3.52 10*3/uL 1.99-6.95 (test code = 9600982442) IMM GRAN x10^3 (test <0.03 0-0.06 code = 0970844837) LYMPH x10^3 (test code 1.40 10*3/uL 1.09-3.23 = 731-0) MONO x10^3 (test code 0.55 10*3/uL 0.36-1.02 = 742-7) EOS x10^3 (test code = 0.06 10*3/uL 0.06-0.53 711-2) BASO x10^3 (test code <0.03 0.01-0.09 = 704-7) Lab Interpretation Abnormal (test code = 54912-7) [facility]- X[facility] ABDOMEN 1 [id number] 12:53:00 Name: DORA MCNEILL [place] : 1970 Age/S: 50 / M [address] Unit #: [id number] Loc: [place] [address] 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 Acct: [id number] Dis Date: Status: ADM IN PHONE #: [phone] Exam Date: 02/25/2020 1036 FAX #: Reason: abdominal distention EXAMS: CPT: [id number] XR ABDOMEN 1 V 99248 Fluoro Time: DAP (Gy m2): Air Kerma [...] the left lower quadrant (not previously seen) [id number] Reported and signed by: Sol Paige MD CC: Andre Solano; Mark Perea MD PAGE 1 Signed Report Name: DORA MCNEILL [place] : 1970 Age/S: 50 / M [address] Unit #: [id number] Loc: [place] [address] 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 Acct: [id number] Dis Date:Status: ADM IN PHONE #: [phone] Exam Date: 02/25/2020 1036 FAX #: Reason: abdominal distentionEXAMS: CPT: [id number] XR ABDOMEN 1 V 02847 Fluoro Time: DAP (Gy m2): Air Kerma (mGy): <Continued> Technologist: Nichole Dill RT(R) Trnscb Date/Time: 02/25/2020 (8944) GarettEFM1 Orig Print D/T: S: 02/25/2020 (4641) PAGE 2 Signed Report COMPREHENSIVE METABOLIC [id number] 08:20:00 Test Item Value Reference Range Interpretation [...] 50-136 L TOTAL (test code = ALKP) [id number] 08:20:00 Test Item Value Reference Range Interpretation Comments MAGNESIUM (test code = MAG) 2.2 MG/DL 1.8-2.4 N THYROID STIMULATING [id number] 08:20:00 Test Item Value Reference Range Interpretation Comments THYROID STIMULATING HORMONE 5.430 mcIU/ML 0.340-4.820 H (test code = TSH) CBC W/AUTO [id number] 07:55:00 Test Item Value Reference Range Interpretation [...] N NRBC#) UA RFLX MICR CULT IF [id number] 12:29:00 Test Item Value Reference Range Interpretation [...] culture: Suprapubic PainUA RFLX MICR CULT IF [id number] 12:29:00 Test Item Value Reference Range Interpretation [...] for culture: Suprapubic PainCOVID 19 Asymptomatic IH [id number] 22:09:00 Test Item Value Reference Range Interpretation [...] tent with COVID-19. - CT ABD PELVIS W/[id number] 21:10:00 Name: DORA MCNEILL [facility] : 1970 Age/S: 50 / M [address] [facility] Unit #: [id number] Loc: [place] [address] Phys: Evin Castellanos MD Acct: [id number] Dis Date: Status: REG ER PHONE #: [phone] Exam Date: 02/23/2020 204 FAX #: Reason: diffuse abdomen pain and distention EXAMS: CPT: [id number] CT ABD PELVIS W/CONT 71413 EXAM: - CT ABD PELVIS W/CONT LOCATION: [...] Signed Report (CONTINUED) Name: DORA MCNEILL [facility] : 1970 Age/S: 50 / M [address] Unit #: [id number] Loc: [place] [address] Phys: Evin Castellanos MD Acct: [id number] Dis Date: Status: REG ER PHONE #: [phone] Exam Date: 02/23/20202047 FAX #: Reason: diffuse abdomen pain and distention EXAMS: CPT: [id number] CT ABD PELVIS W/CONT 67496 <Continued> CT. No bowel wall thickening or [...] PAGE 2 Signed Report- XR CHEST 1 [id number] 21:03:00 Name: DORA MCNEILL [facility] : 1970 Age/S: 50 / M [address] Unit #: [id number] Loc: [place] [address] Phys: Evin Castellanos MD Acct: [id number] Dis Date: Status: REG ER PHONE #: [phone] Exam Date: 02/23/20202055 FAX #: Reason: Code Sepsis EXAMS: CPT: [id number] XRCHEST 1 V 83878 Fluoro Time: DAP (Gy m2): Air Kerma [...] disease. 2. Chronic colonic air distention unchanged. [id number] Reported and signed by: Monica Quijano MD CC: Susana Meza NP; Carl Luevano MD PAGE 1 Signed Report Name: DORA MCNEILL [facility] : 1970 Age/S: 50 / M [address] Unit #: [id number] Loc: [place] [address] Phys: Evin Castellanos MD Acct: [id number] Dis Date:Status: REG ER PHONE #: [phone] Exam Date: 02/23/20202055 FAX #: Reason: Code Sepsis EXAMS: CPT: [id number] XR CHEST 1 V 34243 Fluoro Time: DAP (Gy m2): Air Kerma (mGy): <Continued> Technologist: Rudy Zuniga, RT(R)(CT)(MRI) Trnscb Date/Time: 02/23/2020 (2102) [id number] Orig Print D/T: S: 02/23/2020 (2106) PAGE 2 Signed ReportBASIC METABOLIC [id number] 20:02:00 Test Item Value Reference Range Interpretation [...] 8.5-10.1 N Completed by Nursing: NOHEPATIC FUNCTION [id number] 20:02:00 Test Item Value Reference Range Interpretation [...] N code = ALKP) Completed by Nursing: [id number] 20:02:00 Test Item Value Reference Range Interpretation Comments LIPASE (test code = LIP) 97 Unit/L 114-286 L Completed by Nursing: [id number]-V9907-16-02 20:02:00 Test Item Value Reference Range Interpretation [...] brittani yby method. Completed by Nursing: NOLACTIC [id number] 19:59:00 Test Item Value Reference Range Interpretation Comments LACTIC ACID (test code = LACT) 1.2 mmol/L 0.4-2.0 N CBC W/AUTO [id number] 19:46:00 Test Item Value Reference Range Interpretation [...] CRITERIA = MDIFF) - XR ABDOMEN 2 [id number] 06:22:00 Name: DORA MCNEILL [facility] : 1970 Age/S: 50 / M [address] [facility] Unit #: [id number] Loc: [place] [address] Phys: Leonidas Robertson MD Acct: [id number] Dis Date: Status: ADM INPHONE #: [phone] Exam Date: 02/19/2020 0440 FAX #: Reason: megacolon EXAMS: CPT: [id number] XR ABDOMEN 2 V 50222 Fluoro Time: DAP (Gy m2): Air Kerma [...] 1 Signed Report Name: DORA MCNEILL [facility] : 1970 Age/S: 50 / M [address] [address] Unit #: [id number] Loc: [place] [address] Phys: Leonidas Robertson MD Acct: [id number] Dis Date: Status: ADM IN PHONE #: [phone] Exam Date: 02/19/2020 044 FAX #: Reason: megacolon EXAMS: CPT: [id number] XR ABDOMEN 2 V 66492 Fluoro Time: DAP (Gy m2): Air Kerma (mGy): <Continued> Technologist: Carrie Barnett, RT(R)(CT) Trnscb Date/Time: 02/19/2020 (06) [email or web address] Orig Print D/T : S: 02/19/2020 (0625) PAGE 2 Signed ReportBASIC METABOLIC [id number] 05:52:00 Test Item Value Reference Range Interpretation [...] CA) 8.5 MG/DL 8.5-10.1 N CBC W/AUTO [id number] 05:40:00 Test Item Value Reference Range Interpretation [...] NO DIFF/SCN CRITERIA = MDIFF) BASIC METABOLIC [id number] 06:52:00 Test Item Value Reference Range Interpretation [...] CA) 8.3 MG/DL 8.5-10.1 L CBC W/AUTO [id number] 06:39:00 Test Item Value Reference Range Interpretation [...] DIFF/SCN CRITERIA = MDIFF) Coronavirus 2019 nCoV [id number] 05:35:00 Test Item Value Reference Range Interpretation Comments Coronavirus 2019 nCoV Negative NEGATIVE Per de nufacturer, Bedside (test code = negativ e [...] NA (test code = 139 mmol/L 135-145 2236675282) K (test code = 4.3 mmol/L 3.5-5 1555696921) CL (test code = 105 mmol/L 98-108 8342344794) CO2 TOTAL (test code = 30 mmol/L 23-31 6171420470) AGAP (test code = 2-16 2953256864) BUN (test code = 6 mg/dL 7-23 L 2252735276) GLUCOSE (test code = 94 mg/dL 70-110 6184873137) CREATININE (test code = 1.07 mg/dL 0.6-1.25 7753785474) CALCIUM (test code = 9.3 mg/dL 8.6-10.6 7339271436) eGFR Calculation mL/min/1.73m2 (Non-) (test code = 8032199859) eGFR Calculation mL/min/1.73m2 () (test code = 8625938926) GILBERTO (test code = GILBERTO) Association of [...] tests). Lab Interpretation Abnormal (test code = 55184-9) [facility] CampusMAGNESIUM2020-06-12 16:58:00 Test Item Value Reference Range Interpretation Comments MAGNESIUM (test code = 1269916054) 2.0 mg/dL 1.7-2.4 Lab Interpretation (test code = Normal 52787-9) [facility] CampusXR [id number] 17:02:411. Interval worsening of air distended loops [...] with cecum measuring up to 15 cm. [facility] CampusCBC WITH [id number] 07:20:00 Test Item Value Reference Range Interpretation [...] RDW-SD (test code = 46.5 fL 38.5-51.6 40884-9) RDW-CV (test code = 13.9 % 12.1-15.4 788-0) PLT (test code = See_Comment L [Automated 777-3) message] The sy stem which generated this result transmitted reference range : 150 - 328 10*3/ ?L. The reference r meredith was not used to interpret this result as normal/abnormal . MPV (test code = 10.7 fL 9.8-13 19893-4) NRBC/100 WBC (test See_Comment [Automat ed code = 9980424264) message] The system which generated this result transmitted reference range : 0.0 - 10.0 /100 WBCs. The refer ence range was not u sed to interpret th is result as normal/abnormal . NRBC x10^3 (test code <0.01 See_Comment [Auto mated = 8041286442) message] The s ystem which generated this result transmitted reference range : 10*3/?L. The reference range was not used to interpret this result as normal/abnormal . GRAN MAT (NEUT) % 48.6 % (test code = 770-8) IMM GRAN % (test code 0.20 % = 6752819546) LYMPH % (test code = 39.6 % 736-9) MONO % (test code = 8.4 % 5905-5) EOS % (test code = 2.7 % 713-8) BASO % (test code = 0.5 % 706-2) GRAN MAT x10^3(ANC) 1.96 10*3/uL 1.99-6.95 L (test code = 0687880730) IMM GRAN x10^3 (test <0.03 0-0.06 code = 9029292002) LYMPH x10^3 (test code 1.60 10*3/uL 1.09-3.23 = 731-0) MONO x10^3 (test code 0.34 10*3/uL 0.36-1.02 L = 742-7) EOS x10^3 (test code = 0.11 10*3/uL 0.06-0.53 711-2) BASO x10^3 (test code <0.03 0.01-0.09 = 704-7) Lab Interpretation Abnormal (test code = 33377-6) [facility] METABOLIC PANEL (NA, K, CL, CO2, GLUCOSE, BUN, CREATININE, CA)2020-01-31 06:32:00 Test Item Value Reference Range Interpretation Comments NA (test code = 138 mmol/L 135-145 6916830609) K (test code = 4.2 mmol/L 3.5-5 Slight 9112523015) hemolysis CL (test code = 108 mmol/L 98-108 3345115930) CO2 TOTAL (test code 22 mmol/L 23-31 L = 6078670227) AGAP (test code = 2-16 9976123274) BUN (test code = 7 mg/dL 7-23 Slight 6650665527) hemolysis GLUCOSE (test code = 92 mg/dL 70-110 7062865021) CREATININE (test code 1.02 mg/dL 0.6-1.25 = 3252856265) CALCIUM (test code = 8.9 mg/dL 8.6-10.6 8760548020) eGFR Calculation mL/min/1.73m2 (Non-) (test code = 1043156568) eGFR Calculation mL/min/1.73m2 () (test code = 6167611006) GILBERTO (test code = GILBERTO) Association of [...] tests). Lab Interpretation Abnormal (test code = 84311-6) [facility] WITH [id number] 11:00:00 Test Item Value Reference Range Interpretation [...] RDW-SD (test code = 48.7 fL 38.5-51.6 04016-5) RDW-CV (test code = 14.4 % 12.1-15.4 788-0) PLT (test code = See_Comment L [Automated 777-3) message] The sy stem which generated this result transmitted reference range : 150 - 328 10*3/ ?L. The reference r meredith was not used to interpret this result as normal/abnormal . MPV (test code = 10.7 fL 9.8-13 16879-1) IPF % (test code = 5.1 % 1.2-10.7 Platelet count 6050974159) measured by fluorescence method. NRBC/100 WBC (test See_Comment [Automat ed code = 8499178753) message] The system which generated this result transmitted reference range : 0.0 - 10.0 /100 WBCs. The refer ence range was not u sed to interpret th is result as normal/abnormal . NRBC x10^3 (test code <0.01 See_Comment [Auto mated = 2972867863) message] The s ystem which generated this result transmitted reference range : 10*3/?L. The reference range was not used to interpret this result as normal/abnormal . SEG % (test code = 53 % 33-76 64772-6) BAND % (test code = 1 % 0-1 34643-0) LYMPH % (test code = 39 % 14-54 99963-5) MONO % (test code = 4 % 0-4 34469-0) EOS % (test code = 3 % 0-3 24905-2) ANC (test code = 1.93 10*3/uL 1.99-6.95 L 0532543780) Lab Interpretation Abnormal (test code = 33288-7) [facility] Metabolic Panel (NA, K, CL, CO2, GLUCOSE, BUN, CREATININE, CA)2020-01-29 10:23:00 Test Item Value Reference Range Interpretation Comments NA (test code = 138 mmol/L 135-145 0063592502) K (test code = 4.0 mmol/L 3.5-5 5337694568) CL (test code = 109 mmol/L 98-108 H 6676941821) CO2 TOTAL (test code = 27 mmol/L 23-31 9898210410) AGAP (test code = 2-16 1052101493) BUN (test code = 16 mg/dL 7-23 3834146533) GLUCOSE (test code = 81 mg/dL 70-110 1934682469) CREATININE (test code = 1.14 mg/dL 0.6-1.25 2961246950) CALCIUM (test code = 8.6 mg/dL 8.6-10.6 7421854171) eGFR Calculation mL/min/1.73m2 (Non-) (test code = 0935761089) eGFR Calculation mL/min/1.73m2 () (test code = 7518525990) GILBERTO (test code = GILBERTO) Association of [...] tests). Lab Interpretation Abnormal (test code = 23446-2) [facility]ON[facility] COVID-19 [id number] 04:27:00 Test Item Value Reference Range Interpretation Comments SARS-CoV-2 Rapid ID NOW Not Detected Not Detected (test code = 09899-5) GILBERTO (test code = GILBERTO) ID NOW COVID-19 Assay is an isothermal nucleic acid amplification test intended for the qualitative detection of nucleic acid from SARS-CoV-2 viral RNA in nasopharyngeal (INFORMATICS SPEC) specimens. It is used under Emergency Use [...] indicated. Lab Interpretation Normal (test code = 67058-6) [facility] CampusLactic Acid Whole [id number] 04:10:00 Test Item Value Reference Range Interpretation Comments LACTIC ACID (test code = 1.74 mmol/L 0.5-2.2 7547595747) [facility]COVID-19 (ID NOW RAPID TESTING)2020-01-29 02:17:00 Test Item Value Reference Range Interpretation Comments SARS-CoV-2 Rapid ID NOW Not Detected Not Detected (test code = 72451-1) GILBERTO (test code = GILBERTO) ID NOW COVID-19 Assay is an isothermal nucleic acid amplification test intended for the qualitative detection of nucleic acid from SARS-CoV-2 viral RNA in nasopharyngeal (INFORMATICS SPEC) specimens. It is used under Emergency Use [...] indicated. Lab Interpretation Normal (test code = 05960-0) [facility] CampusUrinalysis2020-06-07 02:14:00 Test Item Value Reference Range Interpretation Comments APPEARANCE (test code = Clear Clear 0693490816) COLOR (test code = Dark Yellow Yellow A 6644715710) PH (test code = 4.8-8.0 7692041098) SP GRAVITY (test code = 1.003-1.030 H 7441155192) GLU U QUAL (test code = Normal Normal 0462514171) BLOOD (test code = 1+ Negative A 3804489595) KETONES (test code = 5 mg/dL Negative A 2571972492) PROTEIN (test code = Negative Negative 2887-8) UROBILIN (test code = Normal Normal 3693831028) BILIRUBIN (test code = Negative Negative 7626554887) NITRITE (test code = Negative Negative 9879699917) LEUK ROGER (test code = Negative Negative 0946299523) RBC/HPF (test code = See_Comment H [Autom ated 9636041099) message] The sy stem which generated this result transmitted reference range : 0 - 3 HPF. The reference range was not used to interpret this result as normal/abnormal . WBC/HPF (test code = See_Comment [Autom ated 9365795021) message] The sy stem which generated this result transmitted reference range : 0 - 5 HPF. The reference range was not used to interpret this result as normal/abnormal . BACTERIA (test code = Moderate Negative A 7376443519) MUCOUS (test code = Slight Negative LPF A 2545255825) AMORPHOUS (test code = Rare Rare HPF 5575940834) SQ EPITH (test code = <1 See_Comment [Auto mated 8750824193) message] The sy stem which generated this result transmitted reference range : <=2 HPF. The reference range was not used to interpret this result as normal/abnormal . CA OXALATE (test code = See_Comment H [Au tomated 4679812602) message] The sy stem which generated this result transmitted reference range : <=1 HPF. The reference range was not used to interpret this result as normal/abnormal . HYAL CAST (test code = See_Comment H [Aut omated 1429182747) message] The sy stem which generated this result transmitted reference range : <=2 LPF. The reference range was not used to interpret this result as normal/abnormal . ASCORBIC ACID (test Negative code = 1573143501) Lab Interpretation Abnormal (test code = 93703-3) [facility] CampusCT ABDOMEN PELVIS W [id number] 00:25:08Persistent marked and severe dilatation of the [...] is essentially stable compared to prior examination. [facility] Metabolic Panel (NA, K, CL, CO2, GLUCOSE, BUN, CREATININE, CA)2020-01-28 23:38:00 Test Item Value Reference Range Interpretation Comments NA (test code = 143 mmol/L 135-145 9632302594) K (test code = 4.2 mmol/L 3.5-5 0232315246) CL (test code = 111 mmol/L 98-108 H 5844463219) CO2 TOTAL (test code = 28 mmol/L 23-31 4033071078) AGAP (test code = 2-16 2066350185) BUN (test code = 15 mg/dL 7-23 5427166281) GLUCOSE (test code = 68 mg/dL 70-110 L 5627384052) CREATININE (test code = 1.32 mg/dL 0.6-1.25 H 5658589280) CALCIUM (test code = 9.0 mg/dL 8.6-10.6 7493734400) eGFR Calculation mL/min/1.73m2 (Non-) (test code = 0216671476) eGFR Calculation mL/min/1.73m2 () (test code = 7679411762) GILBERTO (test code = GILBERTO) Association of [...] tests). Lab Interpretation Abnormal (test code = 68492-4) [facility] CampusHepatic Function Panel (ALB, T.PRO, BILI T, BU/BC, ALT, AST, ALK PHOS)2020-01-28 23:38:00 Test Item Value Reference Range Interpretation Comments TOTAL BILI (test code = 7810708114) 0.6 mg/dL 0.1-1.1 BILI UNCON (test code = 0301906794) 0.6 mg/dL 0.1-1.1 BILI CONJ (test code = 0809482887) 0.0 mg/dL 0-0.3 T PROTEIN (test code = 9899106320) 5.7 g/dL 6.3-8.2 L ALBUMIN (test code = 2897776806) 3.8 g/dL 3.5-5 ALK PHOS (test code = 4019059651) 37 U/L 34-122 ALTv (test code = 1742-6) 23 U/L 5-50 AST(SGOT) (test code = 2960182911) 25 U/L 13-40 Lab Interpretation (test code = Abnormal 15823-5) [facility] CampusLipase [id number] 23:38:00 Test Item Value Reference Range Interpretation Comments LIPASE (test code = 4787972927) 62 U/L 0-220 Lab Interpretation (test code = Normal 67747-1) [facility] CampusCBC WITH [id number] 23:29:00 Test Item Value Reference Range Interpretation [...] RDW-SD (test code = 47.5 fL 38.5-51.6 55217-1) RDW-CV (test code = 14.3 % 12.1-15.4 788-0) PLT (test code = See_Comment [Automated 777-3) message] The sy stem which generated this result transmitted reference range : 150 - 328 10*3/ ?L. The reference r meredith was not used to interpret this result as normal/abnormal . MPV (test code = 10.6 fL 9.8-13 43604-1) NRBC/100 WBC (test See_Comment [Automat ed code = 1980674105) message] The system which generated this result transmitted reference range : 0.0 - 10.0 /100 WBCs. The refer ence range was not u sed to interpret th is result as normal/abnormal . NRBC x10^3 (test code <0.01 See_Comment [Auto mated = 3941472550) message] The s ystem which generated this result transmitted reference range : 10*3/?L. The reference range was not used to interpret this result as normal/abnormal . GRAN MAT (NEUT) % 50.1 % (test code = 770-8) IMM GRAN % (test code 0.20 % = 3978025324) LYMPH % (test code = 34.7 % 736-9) MONO % (test code = 12.5 % 5905-5) EOS % (test code = 1.8 % 713-8) BASO % (test code = 0.7 % 706-2) GRAN MAT x10^3(ANC) 2.28 10*3/uL 1.99-6.95 (test code = 7963238804) IMM GRAN x10^3 (test <0.03 0-0.06 code = 5823745805) LYMPH x10^3 (test code 1.58 10*3/uL 1.09-3.23 = 731-0) MONO x10^3 (test code 0.57 10*3/uL 0.36-1.02 = 742-7) EOS x10^3 (test code = 0.08 10*3/uL 0.06-0.53 711-2) BASO x10^3 (test code 0.03 10*3/uL 0.01-0.09 = 704-7) Lab Interpretation Abnormal (test code = 60876-5) [facility] (NA, K, CL, CO2, GLUCOSE, BUN, CREATININE, CA)2020-01-26 18:34:00 Test Item Value Reference Range Interpretation Comments NA (test code = 138 mmol/L 135-145 9713786090) K (test code = 3.7 mmol/L 3.5-5 3900615638) CL (test code = 108 mmol/L 98-108 7967123872) CO2 TOTAL (test code = 25 mmol/L 23-31 3264445701) AGAP (test code = 2-16 2070377020) BUN (test code = 9 mg/dL 7-23 3097217900) GLUCOSE (test code = 107 mg/dL 70-110 9810550047) CREATININE (test code 0.96 mg/dL 0.6-1.25 = 9305380312) CALCIUM (test code = 8.7 mg/dL 8.6-10.6 6542475021) eGFR Calculation mL/min/1.73m2 (Non-) (test code = 1079824721) eGFR Calculation mL/min/1.73m2 () (test code = 8252521564) GILBERTO (test code = GILBERTO) Association of [...] [facility] CampusMagnesium [id number] 08:33:00 Test Item Value Reference Range Interpretation Comments MAGNESIUM (test code = 1.9 mg/dL 1.7-2.4 [facility] t hemolysis 6940511106) Lab Interpretation (test Normal code = 87806-2) [facility] CampusXR [id number] 06:18:53 Redemonstration of marked gaseous distention of the transverse anddescending colon. RL: 460 AF: 95326 Ordering physician: HELENE GRIFFIN INDICATION: Abdominal pain [...] distention of the transverse anddescending colon.RL: 460AFC: [id number] signed by Angeli Carrillo MD, PhD at 01/26/2020 1:18 AMUnNorth [facility] Campus Phosphorus Qvemi8312-05-68 10:11:00 Test Item Value Reference Range Interpretation Comments PHOSPHORUS (test code = 8896152751) 3.9 mg/dL 2.5-5 Lab Interpretation (test code = Normal 44322-1) [facility] CampusCOVID-19 (ID NOW RAPID TESTING)2020-01-25 05:12:00 Test Item Value Reference Range Interpretation Comments SARS-CoV-2 Rapid ID NOW Not Detected Not Detected (test code = 87043-2) GILBERTO (test code = GILBERTO) ID NOW COVID-19 Assay is an isothermal nucleic acid amplification test intended for the qualitative detection of nucleic acid from SARS-CoV-2 viral RNA in nasopharyngeal (INFORMATICS SPEC) specimens. It is used under Emergency Use [...] indicated. Lab Interpretation Normal (test code = 81437-1) [facility] CampusLactic Acid Whole [id number] 04:34:00 Test Item Value Reference Range Interpretation Comments LACTIC ACID (test code = 0.89 mmol/L 0.5-2.2 0236541411) [facility] CampusCT ABDOMEN PELVIS W [id number] 02:47:02Impression: Marked distention and dilatation of the [...] bowel as well. Rectal tubedecompression may be considered.[facility] CampusUrinalysis2020-06-03 01:51:00 Test Item Value Reference Range Interpretation Comments APPEARANCE (test code = Hazy Clear A 0608322456) COLOR (test code = Yellow Yellow 1523906533) PH (test code = 4.8-8.0 3927436788) SP GRAVITY (test code = 1.003-1.030 3808020635) GLU U QUAL (test code = Normal Normal 0430086982) BLOOD (test code = Negative Negative 8216014094) KETONES (test code = Negative Negative 6118738654) PROTEIN (test code = Negative Negative 2887-8) UROBILIN (test code = Normal Normal 6084210448) BILIRUBIN (test code = Negative Negative 3668744681) NITRITE (test code = Negative Negative 1018828686) LEUK ROGER (test code = Negative Negative 6053193691) RBC/HPF (test code = See_Comment H [Autom ated message] 7947725873) The system The Dodo generated this result transmitted ref erence range: 0 - 3 HP F. The reference range was not used to int erpret this result as normal/abnormal . WBC/HPF (test code = See_Comment [Autom ated message] 7508657423) The system [employer] generated this result transmitted ref erence range: 0 - 5 HP F. The reference range was not used to int erpret this result as normal/abnormal . BACTERIA (test code = Negative Negative 0926841359) SQ EPITH (test code = <1 See_Comment [Auto mated message] 0782741987) The system The [employer]odo generated this result transmitted ref erence range: <=2 HPF. The reference range was not used to int erpret this result as normal/abnormal . CA OXALATE (test code = See_Comment H [Au tomated message] 1350107235) The system The [employer] generated this result transmitted ref erence range: <=1 HPF. The reference range was not used to int erpret this result as normal/abnormal . Lab Interpretation (test Abnormal code = 64058-0) [facility] Metabolic Panel (NA, K, CL, CO2, GLUCOSE, BUN, CREATININE, CA)2020-01-25 01:01:00 Test Item Value Reference Range Interpretation Comments NA (test code = 139 mmol/L 135-145 3439729578) K (test code = 4.6 mmol/L 3.5-5 Slight hemoly sis 9124160764) CL (test code = 107 mmol/L 98-108 8438654413) CO2 TOTAL (test 26 mmol/L 23-31 code = 5239934954) AGAP (test code = 2-16 8908313579) BUN (test code = 23 mg/dL 7-23 Slight hemo lysis 4617644544) GLUCOSE (test code 94 mg/dL 70-110 = 4664624657) CREATININE (test 1.13 mg/dL 0.6-1.25 code = 7981756087) CALCIUM (test code 8.9 mg/dL 8.6-10.6 = 4403924881) eGFR Calculation mL/min/1.73m2 (Non-) (test code = 5252187586) eGFR Calculation mL/min/1.73m2 () (test code = 0624928251) GILBERTO (test code = Association of GILBERTO) [...] Interpretation Comments TOTAL BILI (test code = 8644672607) 0.7 mg/dL 0.1-1.1 BILI UNCON (test code = 8030648189) 0.6 mg/dL 0.1-1.1 BILI CONJ (test code = 5628792826) 0.0 mg/dL 0-0.3 T PROTEIN (test code = 3617460015) 6.2 g/dL 6.3-8.2 L ALBUMIN (test code = 4570364014) 4.1 g/dL 3.5-5 ALK PHOS (test code = 4553309810) 46 U/L 34-122 ALTv (test code = 1742-6) 27 U/L 5-50 AST(SGOT) (test code = 4616577162) 31 U/L 13-40 Lab Interpretation (test code = Abnormal 58743-3) [facility] CampusLipase Xlako7624-96-53 01:01:00 Test Item Value Reference Range Interpretation Comments LIPASE (test code = 3965131291) 246 U/L 0-220 H Lab Interpretation (test code = Abnormal 16812-1) [facility] CampusCBC WITH [id number] 00:49:00 Test Item Value Reference Range Interpretation [...] RDW-SD (test code = 46.8 fL 38.5-51.6 45620-4) RDW-CV (test code = 14.2 % 12.1-15.4 788-0) PLT (test code = See_Comment [Automated 777-3) message] The sy stem which generated this result transmitted reference range : 150 - 328 10*3/ ?L. The reference r meredith was not used to interpret this result as normal/abnormal . MPV (test code = 10.7 fL 9.8-13 35918-4) NRBC/100 WBC (test See_Comment [Automat ed code = 5502321661) message] The system which generated this result transmitted reference range : 0.0 - 10.0 /100 WBCs. The refer ence range was not u sed to interpret th is result as normal/abnormal . NRBC x10^3 (test code <0.01 See_Comment [Auto mated = 5393628595) message] The s ystem which generated this result transmitted reference range : 10*3/?L. The reference range was not used to interpret this result as normal/abnormal . GRAN MAT (NEUT) % 56.9 % (test code = 770-8) IMM GRAN % (test code 0.20 % = 2834182620) LYMPH % (test code = 31.2 % 736-9) MONO % (test code = 9.7 % 5905-5) EOS % (test code = 1.6 % 713-8) BASO % (test code = 0.4 % 706-2) GRAN MAT x10^3(ANC) 2.86 10*3/uL 1.99-6.95 (test code = 1147250720) IMM GRAN x10^3 (test <0.03 0-0.06 code = 9054820016) LYMPH x10^3 (test code 1.57 10*3/uL 1.09-3.23 = 731-0) MONO x10^3 (test code 0.49 10*3/uL 0.36-1.02 = 742-7) EOS x10^3 (test code = 0.08 10*3/uL 0.06-0.53 711-2) BASO x10^3 (test code <0.03 0.01-0.09 = 704-7) Lab Interpretation Abnormal (test code = 63073-4) [facility]- XR ABDOMEN 1 [id number] 07:32:00 Name: DORA MCNEILL [place] : 1970 Age/S: 49 / M [address] [address] Unit #: [id number] Loc: [place] [address] Phys: Jay Mayo MD Acct: [id number] Dis Date: Status: ADM IN PHONE #: [phone] Exam Date: 01/10/2020 0658 FAX #: Reason: follow up colonic ileus EXAMS:CPT: [id number] XR ABDOMEN 1 V 05761 Fluoro Time: DAP (Gy m2): Air Kerma [...] MD PAGE 1 Signed Report Name: DORA MCNEILLGera [place]ing[place] : 1970 Age/S: 49 / M [address] [address] Unit #: [id number] Loc: [place] [address] Phys: Jay Mayo MD Acct: [id number] Dis Date: Status: ADM IN PHONE #: [phone] Exam Date: 01/10/2020 0658 FAX #: Reason: follow up colonic ileus EXAMS: CPT: [id number] XR ABDOMEN 1 V 01899 Fluoro Time: DAP (Gym2): Air Kerma (mGy): <Continued> Technologist: Bakari De Leon RT(R)(CT) Trnscb Date/Time: 01/10/2020 (0732) [id number] Orig Print D/T: S: 01/10/2020 (0736) PAGE 2 Signed ReportCOMPREHENSIVE METABOLIC [id number] 05:56:00 Test Item Value Reference Range Interpretation [...] TOTAL (test code = ALKP) CBC W/AUTO [id number] 05:42:00 Test Item Value Reference Range Interpretation [...] = NO DIFF/SCN CRITERIA MDIFF) BASIC METABOLIC [id number] 06:59:00 Test Item Value Reference Range Interpretation [...] code = CA) 8.5 MG/DL 8.5-10.1 N [id number] 06:59:00 Test Item Value Reference Range Interpretation Comments MAGNESIUM (test code = MAG) 2.2 MG/DL 1.8-2.4 PROTHROMBIN [id number] 06:39:00 Test Item Value Reference Range Interpretation Comments PT PATIENT (test code = PTP) 13.1 SECONDS 9.3-12.9 H INTERNATIONAL NORMAL RATIO 1.16 INR Unit 0.8-1.2 N (test code = INR) CBC W/AUTO [id number] 06:22:00 Test Item Value Reference Range Interpretation [...] DIFF/SCN CRITERIA MDIFF) - XR ABDOMEN 1 [id number] 05:39:00 Name: DORA MCNEILL [facility] : 1970 Age/S: 49 / M [address] [address] Unit #: [id number] Loc: [place] [address] Phys: KimmellAndre gandhi [employer] ATT[employer] Acct: [id number] Dis Date: Status: ADM IN PHONE #: [phone] Exam Date: 01/09/2020522 FAX #: Reason: colonic ileus/obstruction EXAMS: CPT: [id number] XR ABDOMEN 1 V 42877 Fluoro Time: DAP (Gy m2): Air Kerma [...] PAGE 1 Signed Report Name: DORA MCNEILL [place] : 1970 Age/S: 49 / M [address] [address] Unit #: [id number] Loc: [place] [address] 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 Acct: [id number] Dis Date: Status: ADM IN PHONE #: [phone] Exam Date: 01/09/2020522 FAX #: Reason: colonic ileus/obstruction EXAMS: CPT: [id number] XR ABDOMEN 1 V 89940 Fluoro Time: DAP (Gy m2): Air Kerma (mGy): <Continued> Technologist: Carrie Barnett, RT(R)(CT) Trnscb Date/Time: 01/09/2020 (538) t.FLEXR.FC Orig Print D/T: S: 01/09/2020 (0542) PAGE 2 Signed ReportCoronavirus 2018 nCoV [id number] 22:38:00 Test Item Value Reference Range Interpretation Comments Coronavirus 2019 nCoV Bedside (test Negative Negative code = [id number]) Emergent procedure? YESCoronavirus 2018 nCoV Jygpklj7942-71-45 22:38:00 Test Item Value Reference Range Interpretation Comments Coronavirus 2019 nCoV Bedside (test Negative Negative code = [id number]) Emergent procedure? YESBASIC METABOLIC [id number] 18:42:00 Test Item Value Reference Range Interpretation [...] CA) 8.5 MG/DL 8.5-10.1 N CBC W/AUTO [id number] 10:50:00 Test Item Value Reference Range Interpretation [...] = NO DIFF/SCN CRITERIA MDIFF) COMPREHENSIVE METABOLIC [id number] 10:46:00 Test Item Value Reference Range Interpretation [...] 50-136 N TOTAL (test code = ALKP) [id number] 10:46:00 Test Item Value Reference Range Interpretation Comments MAGNESIUM (test code = MAG) 2.6 MG/DL 1.8-2.4 H COMPREHENSIVE METABOLIC [id number] 10:34:00 Test Item Value Reference Range Interpretation [...] TOTAL (test Unit/L 50-136 code = ALKP) [id number] 10:34:00 Test Item Value Reference Range Interpretation Comments MAGNESIUM (test code = MAG) MG/DL 1.8-2.4 - XR ABDOMEN 1 [id number] 08:28:00 Name: DORA MCNEILL [facility] : 1970 Age/S: 49 / M [address] [address] Unit #: [id number] Loc: [place] [address] Phys: Yas Edwards MD Acct: [id number] Dis Date: Status: ADM IN PHONE#: [phone] Exam Date: 01/08/2020 0510 FAX #: Reason: ileus EXAMS: CPT: [id number] XR ABDOMEN 1 V 01188 Fluoro Time: DAP (Gy m2): Air Kerma [...] PAGE 1 Signed Report Name: DORA MCNEILL [place] : 1970 Age/S: 49 / M [address] [address] Unit #: [id number] Loc: [place] [address] Phys: Yas Edwards MD Acct: [id number] Dis Date: Status: ADM IN PHONE #: [phone] Exam Date: 01/08/2020 05 FAX #:Reason: ileus EXAMS: CPT: [id number] XR ABDOMEN 1 V 38809 Fluoro Time: DAP (Gy m2): Air Kerma (mGy): & lt;Continued> Technologist: Carrie Barnett, RT(R)(CT); ... Trnscb Date/Time: 01/08/2020 (827)t.SDR.JTM Orig Print D/T: S: 01/08/2020 (0831) PAGE 2 Signed ReportCOMPREHENSIVE METABOLIC [id number] 07:08:00 Test Item Value Reference Range Interpretation [...] 50-136 L TOTAL (test code = ALKP) [id number] 07:08:00 Test Item Value Reference Range Interpretation Comments MAGNESIUM (test code = MAG) 1.3 MG/DL 1.8-2.4 L COMPREHENSIVE METABOLIC [id number] 05:16:00 Test Item Value Reference Range Interpretation [...] 50-136 L TOTAL (test code = ALKP) [id number] 05:16:00 Test Item Value Reference Range Interpretation Comments MAGNESIUM (test code = MAG) 1.3 MG/DL 1.8-2.4 L CBC W/AUTO [id number] 05:02:00 Test Item Value Reference Range Interpretation [...] (test code = NO DIFF/SCN CRITERIA MDIFF) [id number] 16:51:00 Test Item Value Reference Range Interpretation Comments MAGNESIUM (test code = MAG) 2.3 MG/DL 1.8-2.4 N FE W/TOTAL IRON BINDING CAP.2020-01-07 16:51:00 Test Item Value Reference Range Interpretation Comments SERUM IRON (test code = IRON) 38 mcG/DL 65-175 L TOTAL IRON BINDING CAPACITY (test 322 mcG/DL 250-450 N code = TIBC) IRON SATURATION (test code = 12 % calc 12-57 N FESAT) [id number] 16:51:00 Test Item Value Reference Range Interpretation Comments FERRITIN (test code = DAVID) 17.6 NG/ML 5.0-323.0 N CALCIUM [id number] 16:50:00 Test Item Value Reference Range Interpretation Comments CALCIUM IONIZED (test code = NAVEED) 1.12 mmol/L 1.12-1.32 N - XR ABDOMEN 1 [id number] 10:29:00 Name: DORA MCNEILL [facility] : 1970 Age/S: 49 / M [address] [address] Unit #: [id number] Loc: [place] [address] Phys: Verona Frost PA-C Acct: [id number] Dis Date: Status: ADM IN PHONE #: [phone] Exam Date: 01/07/2020 0712 FAX #: Reason: reassess SBO EXAMS: CPT: [id number] XR ABDOMEN 1 V 38505 Fluoro Time: DAP (Gy m2): Air Kerma [...] PAGE 1 Signed Report Name: [facility] : 1970 Age/S: 49 / M [address] [address] Unit #: [id number] Loc: [place] [address] Phys: Verona Frost PA-C Acct: [id number] Dis Date: Status: ADM IN PHONE #: [phone] Exam Date: 01/07/2020 0712 FAX #: Reason: reassess SBO EXAMS: CPT: [id number] XR ABDOMEN 1 V 87576 Fluoro Time: DAP (Gy m2): Air Kerma (mGy): <Continued> Technologist: Bakari De Leon RT(R)(CT) Trnscb Date/Time: 01/07/2020 (8179) t.SDR.AGV Orig Print D/T: S: 01/07/2020 (3215) PAGE 2 Signed ReportBASIC METABOLIC PANEL 2020-01-07 [...] CA) 5.4 MG/DL 8.5-10.1 LL CBC W/AUTO [id number] 06:49:00 Test Item Value Reference Range Interpretation [...] = NO DIFF/SCN CRITERIA MDIFF) COMPREHENSIVE METABOLIC [id number] 06:10:00 Test Item Value Reference Range Interpretation [...] TOTAL (test code = ALKP) CBC W/AUTO [id number] 05:52:00 Test Item Value Reference Range Interpretation [...] DIFF/SCN CRITERIA MDIFF) - XR ABDOMEN 1 [id number] 01:30:00 Name: DORA MCNEILL [facility] : 1970 Age/S: 49 / M [id number] [address] Unit #: [id number] Loc: [place] [address] Phys: Ted Coleman INFORMATICS SPEC Acct: [id number] Dis Date: Status: ADM IN PHONE #: [phone] Exam Date: 01/06/2020 0100 FAX #: Reason: NG Tube Placement Verification EXAMS: CPT: [id number] XR ABDOMEN 1 V 15046 Fluoro Time: DAP (Gy m2): Air Kerma [...] M.D. CC: Mark Perea MD; Ted Coleman INFORMATICS SPEC PAGE 1 Signed Report Name: DORA MCNEILL [facility] : 1970 Age/S: 49 / M [id number] [address] Unit #: [id number] Loc: [place] [address] Phys: Ted Coleman NP Acct: [id number] Dis Date: Status: ADM IN PHONE #: [phone] Exam Date: 01/06/202099 FAX #: Reason:NG Tube Placement Verification EXAMS: CPT: [id number] XR ABDOMEN 1 V 37895 Fluoro Time: DAP (Gy m2):Air Kerma (mGy): <Continued> Technologist: RT Tatum(R) [facility] [place]/Time: 01/06/2020 (129) [place]. Orig Print D/T: S: 01/06/2020 (132) PAGE 2 Signed Report- CT ABD PELVIS W/O [id number] 19:42:00 [place]: St: REG -- Name: DORA MCNEILL [facility] : 1970 Age/S: 49/M [address] [facility] Unit:[id number] Loc: [place], [place]: [place] [id number] Acct: [id number] Dis Date: Status: REG ER PHONE #: [phone] Exam Date: 12/13/20191924 FAX #: [phone] Reason: pain EXAMS: CPT CODE: [id number] CT ABD PELVIS W/O CONT 16579 Examination: CT scan abdomen and pelvis without [...] [email or web address] Orig Prin t D/T: S: 12/13/2019 (5 PAGE 1 Signed ReportBASIC METABOLIC [id number] 18:49:00 Test Item Value Reference Range Interpretation [...] code = CA) 8.6 mg/dl 8.0-10.5 N [id number] 18:49:00 Test Item Value Reference Range Interpretation Comments LIPASE (test code = LIP) 97 Units/L 65.0-230.0 N CBC W/AUTO [id number] 18:38:00 Test Item Value Reference Range Interpretation [...] K/mm3 0.0-0.2 N - XR CHEST 1 [id number] 18:36:00 [place]: St: PRE -- Name: OPALDORA ADAMIC [facility] : 1970 Age/S: 49/M [address] [facility] Unit #: [id number] Loc: [place], [place]: [place] [id number] Acct: [id number] Dis Date: Status: PRE ER PHONE #: [phone] Exam Date: 12/13/20191821 FAX #: [phone] Reason: SOB EXAMS: CPT CODE: [id number] XR CHEST 1 V 23346 Examination: One view chest x-ray Location code: [...] : By: GarettVR5 PAGE 1 Signed Report [place]: St: PRE ----- Name: DORA MCNEILL [facility] : 1970 Age/S: 49/M [address] Unit #: [id number] Loc: [place], [place]: [place] [address] Acct: [id number] Dis Date: Status: PRE ER PHONE #: [phone] Exam Date: 12/13/20191821 FAX #: [phone] Reason: SOB EXAMS: CPT CODE: [id number] XR CHEST 1 V 69237 (Continued) Orig Print D/T: S: 12/13/2019 (1839) [...] Received comment: User comments: Slide comments:BASIC METABOLIC [id number] 07:34:00 Test Item Value Reference Range Interpretation [...] S NOT APPLICABLE FOR DIALYSIS PATIEN TS. [id number] 07:26:00 Test Item Value Reference Range Interpretation Comments PHOSPHORUS (BEAKER) (test code = 3.1 mg/dL 2.3-4.7 604) [id number] 07:26:00 Test Item Value Reference Range Interpretation Comments MAGNESIUM (BEAKER) (test code = 1.6 mg/dL 1.6-2.6 627) RAD, ABDOMEN/KUB, 1 VIEW [id number] 07:04:00Reason for exam:->ileusFINAL REPORT Abdomen , one [...] MDReport Verified Date/Time: 04/03/2019 07:04:46 Reading Location: [facility] C013X Ortho Consult Reading Room BASIC METABOLIC [id number] 06:47:00 Test Item Value Reference Range Interpretation [...] code = 413) URINALYSIS WITH MICROSCOPIC IF [id number] 22:01:00 Test Item Value Reference Range Interpretation [...] 463) SOURCE(BEAKER) (test code = 2795) URINALYSIS [id number] 22:01:00 Test Item Value Reference Range Interpretation Comments RBC UA (BEAKER) (test code = 519) 18 /HPF WBC UA (BEAKER) (test code = 520) 1 /HPF CALCIUM OXALATE CRYSTALS (BEAKER) Occasional (test code = 518) [id number] 05:49:00 Test Item Value Reference Range Interpretation Comments PHOSPHORUS (BEAKER) (test code = 2.5 mg/dL 2.3-4.7 604) [id number] 05:49:00 Test Item Value Reference Range Interpretation Comments MAGNESIUM (BEAKER) (test code = 1.7 mg/dL 1.6-2.6 627) BASIC METABOLIC [id number] 05:49:00 Test Item Value Reference Range Interpretation [...] (BEAKER) (test code = 413) BASIC METABOLIC [id number] 06:19:00 Test Item Value Reference Range Interpretation [...] S NOT APPLICABLE FOR DIALYSIS PATIEN TS. [id number] 06:10:00 Test Item Value Reference Range Interpretation Comments MAGNESIUM (BEAKER) 1.8 mg/dL 1.6-2.6 Specimen slightly (test code = 627) hemolyzed [id number] 06:10:00 Test Item Value Reference Range Interpretation [...] (BEAKER) (test code = 413) BASIC METABOLIC [id number] 04:57:00 Test Item Value Reference Range Interpretation [...] S NOT APPLICABLE FOR DIALYSIS PATIEN TS. [id number] 04:55:00 Test Item Value Reference Range Interpretation Comments PHOSPHORUS (BEAKER) (test code = 2.6 mg/dL 2.3-4.7 604) [id number] 04:55:00 Test Item Value Reference Range Interpretation Comments MAGNESIUM (BEAKER) (test code = 1.8 mg/dL 1.6-2.6 627) CT, [id number] 14:16:00FINAL REPORT TECHNIQUE: CT of the abdomen [...] Pope MDReport Verified Date/Time: 03/29/2019 14:16:01Reading Location: [facility] C013Y CT Body Reading Room , ABDOMEN/KUB, 1 VIEW [id number] 10:23:00Reason for exam:->evaluate ileusFINAL REPORT Technique: Supine [...] MDReport Verified Date/Time: 03/29/2019 10:23:29 Reading Location: [facility] Reading Room CBC (HEMOGRAM [...] WBC 0-0 (BEAKER) (test code = 413) [id number] 06:20:00 Test Item Value Reference Range Interpretation Comments PHOSPHORUS (BEAKER) (test code = 2.6 mg/dL 2.3-4.7 604) [id number] 06:20:00 Test Item Value Reference Range Interpretation Comments MAGNESIUM (BEAKER) (test code = 2.0 mg/dL 1.6-2.6 627) BASIC METABOLIC [id number] 06:20:00 Test Item Value Reference Range Interpretation [...] TS. RAD, ABDOMEN SERIES W/ UPRIGHT PA [id number] 22:18:00Reason for exam:- >eval ileusFINAL REPORT CLINICAL [...] Date/Time: 03/28/2019 22:18:50 RAD, ABDOMEN/KUB, 1 VIEW [id number] 11:23:00Reason for exam:->abdominal distensionShould this be performed [...] Ontiverosort Verified Date/Time: 03/28/2019 11:23:34 Reading Location: [facility] Radiology Reading Room TISSUE [id number] 09:00:00Surgical Pathology Report Case: [id number] Authorizing Provider: Graciela Garrison MD Collected: 03/25/2019 [...] NEGATIVEFOR MALIGNANCY Signing Pathologist Direct Phone Line: [phone] signed by Jordan Celaya MD on 03/28/2019 at 9:00 [id number] and postop diagnosis: ileostomy statusA. End ileostomy; [...] nodes are not identified in the mesentery. Oral And Maxillofacial Surgery sections are submitted. Section code: A, area representative section of each end of first mentioned segment of small bowel; A2, area representative of first mentioned segment of small bowel mucosa; A3, area of hemorrhagic mesentery of second mentioned segment of mucosa; A4, area representative of hemorrhagic mucosa at open end of second portion of small bowel; A5, area representative of stapled margin from second mentioned [...] 0.2 cm. No gross lesions are identified. Oral And Maxillofacial Surgery sections are submitted. Section code: B1, proximal margin en face and tip; B2, area representative cross section. CG/pl Performed.[id number] 06:23:00 Test Item Value Reference Range Interpretation Comments PHOSPHORUS (BEAKER) (test code = 2.7 mg/dL 2.3-4.7 604) [id number] 06:23:00 Test Item Value Reference Range Interpretation Comments MAGNESIUM (BEAKER) (test code = 1.9 mg/dL 1.6-2.6 627) BASIC METABOLIC [id number] 06:23:00 Test Item Value Reference Range Interpretation [...] S NOT APPLICABLE FOR DIALYSIS PATIEN TS. [id number] 08:20:00 Test Item Value Reference Range Interpretation Comments PHOSPHORUS (BEAKER) (test code = 2.6 mg/dL 2.3-4.7 604) [id number] 08:20:00 Test Item Value Reference Range Interpretation Comments MAGNESIUM (BEAKER) (test code = 1.8 mg/dL 1.6-2.6 627) BASIC METABOLIC [id number] 08:20:00 Test Item Value Reference Range Interpretation [...] S NOT APPLICABLE FOR DIALYSIS PATIEN TS. [id number] 06:06:00 Test Item Value Reference Range Interpretation Comments PHOSPHORUS (BEAKER) (test code = 4.1 mg/dL 2.3-4.7 604) [id number] 06:06:00 Test Item Value Reference Range Interpretation Comments MAGNESIUM (BEAKER) (test code = 1.8 mg/dL 1.6-2.6 627) BASIC METABOLIC [id number] 06:06:00 Test Item Value Reference Range Interpretation [...] S NOT APPLICABLE FOR DIALYSIS PATIEN TS. [id number] 06:03:00 Test Item Value Reference Range Interpretation Comments PHOSPHORUS (BEAKER) (test code = 4.2 mg/dL 2.3-4.7 604) [id number] 06:03:00 Test Item Value Reference Range Interpretation Comments MAGNESIUM (BEAKER) (test code = 2.0 mg/dL 1.6-2.6 627) BASIC METABOLIC [id number] 06:03:00 Test Item Value Reference Range Interpretation [...] WBC 0-0 (BEAKER) (test code = 413) [id number] 05:52:00 Test Item Value Reference Range Interpretation Comments PHOSPHORUS (BEAKER) (test code = 4.2 mg/dL 2.3-4.7 604) [id number] 05:52:00 Test Item Value Reference Range Interpretation Comments MAGNESIUM (BEAKER) (test code = 1.9 mg/dL 1.6-2.6 627) BASIC METABOLIC [id number] 05:52:00 Test Item Value Reference Range Interpretation [...] S NOT APPLICABLE FOR DIALYSIS PATIEN TS. [id number] 06:51:00 Test Item Value Reference Range Interpretation Comments PHOSPHORUS (BEAKER) (test code = 4.3 mg/dL 2.3-4.7 604) [id number] 06:51:00 Test Item Value Reference Range Interpretation Comments MAGNESIUM (BEAKER) (test code = 2.0 mg/dL 1.6-2.6 627) BASIC METABOLIC [id number] 06:51:00 Test Item Value Reference Range Interpretation [...] 0-0 (BEAKER) (test code = 413) TISSUE [id number] 11:50:00Surgical Pathology Report Case: [id number] Authorizing Provider: Mela Larson MD Collected: 03/18/2019 [...] OR MALIGNANCY Signing Pathologist Direct Phone Line: [phone] signed by Jordan Celaya MD on 03/22/2019 at 11:50 [id number] of ileostomyReceived in a container labeled "small [...] 0.5 to 1.2 cm in greatest dimension. Oral And Maxillofacial Surgery sections are submitted as follows: A1-A2, mucosal resection margin, en face; A3-A6, area representative sections of the possible ostomy stump; A7-A11, serial area representative sections from mucosal resection margin to the possible ostomy stump; A12, two lymph nodes. TH/plPerformed.[id number] 06:58:00 Test Item Value Reference Range Interpretation Comments PHOSPHORUS (BEAKER) (test code = 3.8 mg/dL 2.3-4.7 604) [id number] 06:58:00 Test Item Value Reference Range Interpretation Comments MAGNESIUM (BEAKER) (test code = 2.0 mg/dL 1.6-2.6 627) BASIC METABOLIC [id number] 06:58:00 Test Item Value Reference Range Interpretation [...] PATIEN TS. CBC W/PLT COUNT & AUTO [id number] 05:42:00 Test Item Value Reference Range Interpretation [...] PERCENT (BEAKER) (test code = 2801) FL, [id number] 17:42:00Reason for exam:->evaluate for colon stricture as [...] MDReport Verified Date/Time: 03/21/2019 17:42:21 Reading Location: [place] [address] [facility] Consult Reading Room [id number] 03:58:00 Test Item Value Reference Range Interpretation Comments PHOSPHORUS (BEAKER) (test code = 3.0 mg/dL 2.3-4.7 604) [id number] 03:58:00 Test Item Value Reference Range Interpretation Comments MAGNESIUM (BEAKER) (test code = 2.0 mg/dL 1.6-2.6 627) BASIC METABOLIC [id number] 03:58:00 Test Item Value Reference Range Interpretation [...] PATIEN TS. CBC W/PLT COUNT & AUTO [id number] 03:20:00 Test Item Value Reference Range Interpretation [...] (BEAKER) (test code = 2801) BASIC METABOLIC [id number] 06:26:00 Test Item Value Reference Range Interpretation [...] S NOT APPLICABLE FOR DIALYSIS PATIEN TS. [id number] 06:05:00 Test Item Value Reference Range Interpretation Comments PHOSPHORUS (BEAKER) (test code = 2.2 mg/dL 2.3-4.7 L 604) [id number] 06:05:00 Test Item Value Reference Range Interpretation Comments MAGNESIUM (BEAKER) (test code = 2.0 mg/dL 1.6-2.6 627) CBC W/PLT COUNT & AUTO [id number] 05:25:00 Test Item Value Reference Range Interpretation [...] 0-1 PERCENT (BEAKER) (test code = 2801) [id number] 04:31:00 Test Item Value Reference Range Interpretation Comments PHOSPHORUS (BEAKER) (test code = 3.7 mg/dL 2.3-4.7 604) [id number] 04:31:00 Test Item Value Reference Range Interpretation Comments MAGNESIUM (BEAKER) (test code = 1.9 mg/dL 1.6-2.6 627) BASIC METABOLIC [id number] 04:31:00 Test Item Value Reference Range Interpretation [...] PATIEN TS. CBC W/PLT COUNT & AUTO [id number] 04:15:00 Test Item Value Reference Range Interpretation [...] 0-1 PERCENT (BEAKER) (test code = 2801) [id number] 06:41:00 Test Item Value Reference Range Interpretation Comments PHOSPHORUS (BEAKER) (test code = 3.1 mg/dL 2.3-4.7 604) [id number] 06:41:00 Test Item Value Reference Range Interpretation Comments MAGNESIUM (BEAKER) (test code = 1.9 mg/dL 1.6-2.6 627) BASIC METABOLIC [id number] 06:41:00 Test Item Value Reference Range Interpretation [...] PATIEN TS. CBC W/PLT COUNT & AUTO [id number] 06:36:00 Test Item Value Reference Range Interpretation [...] PERCENT (BEAKER) (test code = 2801) CT, [id number] 17:04:00No PO contrastFINAL REPORT ABDOMINAL AND PELVIS [...] MDReport Verified Date/Time: 03/17/2019 17:04:19 Reading Location: [facility] C013Y CT Body Reading Room XR ABDOMEN 2 [id number] 09:03:45XR ABDOMEN 2 VIEWSLOCATION: [id number]: Colstomy ProlapseCOMPARISON: Chest radiograph 04/15/2017, CT of [...] Nonspecific, nonobstructive bowel gas pattern.XR CHEST 1 [id number] 11:32:15EXAM: CHEST ONE VIEWINDICATION: Chest painCOMPARISON: None availableTECHNIQUE: AP view of the chest.FINDINGS: The cardiomediastinal silhouette is normal. The lungs are clearbilaterally. No pneumothoraxor pleural effusion is identified. Theosseous structures are unremarkable.IMPRESSION: No acute cardiopulmonary process.LOCATION: M15Potyi Type and [id number] 21:21:00 Test Item Value Reference Range Interpretation Comments ABO type (test code = ABO) O Rh Type (test code = RH) Positive Comprehensive Metabolic [id number] 20:36:00 Test Item Value Reference Range Interpretation [...] the National Kidney Foundation,http ://nkd ep.nih.gov Alcohol/Ethanol, [id number] 20:36:00 Test Item Value Reference Range Interpretation Comments Alcohol, Ethyl <0.01 g/dL 0.00-0.01 N Intoxicated 0 .080 g/dL (test code = ETOH) or more Prothrombin [id number] 20:00:00 Test Item Value Reference Range Interpretation Comments PT (test code = PT) 10.10 seconds 9.78-13.35 N INR (test code = INR) 0.88 Ratio 0.6-1.2 N Partial Thromboplastin [id number] 20:00:00 Test Item Value Reference Range Interpretation Comments aPTT (test code = PTT) 31.50 seconds 24.39-37.25 N CBC with [id number] 19:50:00 Test Item Value Reference Range Interpretation [...] code = ALYMPH) 2.2 K/cumm 0.5-4.6 N [place] Abs (test code = AMONO) 0.4 K/cumm 0.0-1.2 N Eos Abs (test code = AEOS) 0.17 K/cumm 0.00-0.74 N Baso Abs (test code = ABASO) 0.0 K/cumm 0.00-0.21 N 39103& PELVIS W/O [id number] 17:36:28CT ABDOMEN AND PELVIS WITHOUT CONTRAST.CLINICAL HISTORY: [...] Physical Notes Date/Time Note Provider Source 2022-02-18 21:22:43 7578-77-83B98:22:43Formatting of Internal Me [facility] this note is different from the System original.Moe Ayala Internal Medicine - [facility] Admit Y Admission History & Physical for BNH8Mvffmtn admitted by Fannie Blake MD ([facility] Admitter Y). For any questions until 12AM on 02/19/2022, please page [phone]. After 12AM, please contact [facility] at [phone]. Thank you!Patient name: Dora McneillMRN: [id number] of admission: 02/18/2022 1:58 PMLOS: 0 daysRoom: BT CRITICAL CARE HW/CC- *Assessment & Plan:Dora Mcneill is an 52 y.o. year-old male with a past medical history significant for ostomy who presents with lightheadedness and hypotension in the setting of high ostomy output. # High ostomy output# ALMA# Hypotension# Hypovolemic hyponatremia- Per last d/c summary has had extensive work-up: presumed 2/2 structural process given onset after 2000 surgery versus adaptation failure versus autoimmune/inflammatory bowel etiology; less likely infectious given chronic timing, negative enteric panel, and negative fecal leukocytes. Normal transglutaminase IgA - Restart regimen that has worked for him previously: loperamide and psyllium- Monitor stool output and replace to keep net even until ostomy output normalizes- Can consider GI or surgery consultation if not improvement with above - Baseline creatinine 1.1. admission 2.6; likely pre-renal or pre-renal progressed to ATN in the setting of volume depletion- s/p IVF bolus in EC with improvement in vitals/symptoms, will start LR @ 150cc/hour x24 hours; f/u ostomy output and replace with IVF to keep net even- Avoid nephrotoxic medications, renally dose medications # Pre-syncope- patient reports seeing black spots on changing position, states this was present even on discahrge last admission- Suspect this is most likely due to orthostatic hypotension in the setting of volume depletion, but can check orthostatic vital signs after he is fluid replete# Normocytic anemia# VITA# B12 def- PO supplementation- hgb acceptable # Homelessness- social work consult placed for assistance with homeless resources, homeless j[place]- not having access to medication refills is the primary reason for his readmission, will try to discharge with as many pills as possible; discuss with social work other options (potentially healthcare for the homeless) FULL CODEDVT PPX: enoxaDIET: regularDispo: Hospitalize as observation, home when symptoms/vitals/cr/sabinetrePrecious Hernandez Professor Section of General Internal Medicine, [facility] [place] [id number] future appointments. Chief Complaint: ostomy supplies, dizzinessHistory of Present Illness: Dora Mcneill is an 52y.o. 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 Patient given ostomy supplies and prolapse was reduced at bedside. Patient then go up to go to bathroom and became dizzy and found to have hypotension to 70/50s with tachy to 110s, so he was evaluated further.States still having lots of output from ostomy and still homeless spending most of the time outdoors in the sun. Trying to take in as much po/water.Review of Systems: Review of Systems Constitutional: Negative for activity change. HENT: Negative for ear pain. Eyes: Negative for pain. Respiratory: Negative for choking. Gastrointestinal: Negative for rectal pain. Endocrine: Negative for polyphagia. Genitourinary: Negative for dysuria. Musculoskeletal: Negative for back pain. Allergic/Immunologic: Negative for food allergies. Neurological: Negative for speech difficulty. Psychiatric/Behavioral: Negative for decreased concentration. Past Medical History:Past Medical History: Diagnosis Date Alcohol abuse sober since 04/06/2017 Homelessness 04/10/2017 Thyroid disease 2012 Past Surgical History:Past Surgical History: Procedure Laterality Date HX COLOSTOMY Lateral Right Since 11/2016 Medications (home):No current facility-administered medications on file prior to [...] daily 30 tablet 3 Allergies: No Known AllergiesFamily History: No family history on file.Social History:Social History Tobacco Use Smoking status: Never Smoke r Smokeless tobacco: Current User Substance Use Topics Alcohol use: Yes Drug use: No Physical examVitals: 02/18/22 1505 02/18/22 1530 02/18/22 1600 02/18/22 1900 BP: 96/65 93/69 106/67 116/76 Pulse: 71 78 72 71 Resp: Temp: 98.6 F (37 C) SpO2: 98% 99% 99% Wt Readings from Last 3 Encounters: 02/08/22 156 lb (70.8 kg) 01/16/22 152 lb 1.6 oz (69 kg) 01/10/22 163 lb 11.2 oz (74.3 kg) There is no height or weight on file to calculate BMI.General: Thin but generally well-appearing, tanHEENT: Normocephalic, atraumatic, MMM, Neck supple. No JVD.CVS: Normal rate. Regular rhythm. Normal S1/S2, no murmurs, rubs or gallops.Pulmonary: CTAB, no wheezes, rales or rhonchi. Abdomen: Hyperactive bowel sounds, soft, non-tender, non-distended; ostomy in placeExtremities: No edema bilaterally. No clubbing. No cyanosis. Warm and well perfused. Neurologic: No focal neuro deficits. Following commands. Skin: No rashesPsych: Mood and affect appropriateData: Reviewed in EPIC 43066-1Lbbytfn and physical rhzzII3790-77-18R08:30:24History and physical noteTXT1.2.840.453735.1.13.43.2.7 .2.578120|[id number] for patient careInternal MedicineSierra Vista Regional [facility] Centern[facility]le Powe[id number] [id number]:30:241.2.840.114 350.1.72.3.15|1.2.840.177255.1.13 .43.2.7.2.727879_[id number] 2022-02-07 19:39:59 3630-01-72F29:39:59Formatting of [facility] this note is different from the System original.ADMISSION HISTORY AND PHYSICAL HOSPITALIST Hiram ADMITTERHOT 5 Patient is admitted by HAO Gandhi on the night of 02/07. To reach the covering provider please page HAO Gandhi until Midnight. After Midnight, please page HAO Night or call [phone]. Chief Complaint: Increased ostomy outputHPI: Dora Mcneill is an 51y.o. 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 Patient was recently admitted in December with a similar presentation (ALMA, dehydrdation, hyponatremia to 124). He was treated with loperamide and psyllium with marked improvement in his ostomy output. Per chart, high output has been worked up extensively in the past and is felt to be 2/2 structural process versus adaptation failure (less likely due to infectious or inflammatory). He reports that he was doing well after discharge with his output decreased by about 50% (1-2 bags per day) until he ran out of his prescribed loperamide. He was unable to obtain more due to lack of funding. For the last several weeks he has has 4-5 bags daily of ostomy output. He has been trying to drink water but has not been able to keep up. He reports feeling lightheaded including seeing black spots or darkening of his vision when changing position. No other issues, generally feeling well. No fevers, chills, headaches, nausea, vomiting, chest pain, cough. EC Course: Patient hypotensive on arrival. Found to have ALMA and hyponatremia. He received 2L NSS with improvement in blood pressures. Review of systems: 10 point review of systems conducted and is negative except as noted in HPI. PMHx:Past Medical History: Diagnosis D ate Alcohol abuse sober since 04/06/2017 Homelessness 04/10/2017 Thyroid disease 2012 PSHx:Past Surgical History: Procedure Laterality Date HX COLOSTOMY Lateral Right Since 11/2016 Fam Hx:No family history on file.SOCIAL HISTORY: Social History Tobacco Use Smoking status: Never Smoke r Smokeless tobacco: Current User Substance Use Topics Alcohol use: Yes Drug use: No Allergies: No Known AllergiesImmunization Hx:Immunization History Administered Date(s) Administered PPD 04/14/2017 Medications: Complete list of medications reviewed and reconciled. No current facility-administered medications on file prior [...] daily 30 tablet 3 Physical exam: Visit VitalsBP 92/59 Pulse 82 Temp 97.9 F (36.6 C) Resp 18 Wt 165 lb 5.5 oz (75 kg) SpO2 97% BMI 21.81 kg/m2 Smoking Status Never Smoker BSA 1.97 m2 General: Thin but generally well-appearingHEENT: Normocephalic, atraumatic, MMM, Neck supple. No JVD.CVS: Normal rate. Regular rhythm. Normal S1/S2, no murmurs, rubs or gallops.Pulmonary: CTAB, no wheezes, rales or rhonchi. Abdomen: Hyperactive bowel sounds, soft, non-tender, non-distended; ostomy in placeExtremities: No edema bilaterally. No clubbing. No cyanosis. Warm and well perfused. Neurologic: No focal neuro deficits. Following commands. Skin: No rashesPsych: Mood and affect appropriateImaging and labs: Reviewed CBC6.5 11.5 (L) 344 35.9 (L) QRO400 (L) 103 30.4 (H) 116 (H) 3.9 21 1.9 (H) Ca: 8.3 (L) M.9 Ph: 5.4 (H) LFT6.7 4.4 15(AST) 12(ALT) 0.5 -- Admission Na 128--> 132 after fluid resuscitationCreatinine 2.3 --> 1.9 (baseline 1.1)Active Problems Active Problems: Hypotension Hyponatremia ALMA (acute kidney injury)ASSESSMENT AND PLAN: Dora Mcneill is an 51y.o. year-old male with a past medical history significant for ostomy who presents with lightheadedness and hypotension in the setting of high ostomy output. # High ostomy output- Per last d/c summary has had extensive work-up: presumed 2/2 structural process given onset after 2000 surgery versus adaptation failure versus autoimmune/inflammatory bowel etiology; less likely infectious given chronic timing, negative enteric panel, and negative fecal leukocytes. Normal transglutaminase IgA - Restart regimen that has worked for him previously: loperamide and psyllium- Monitor stool output and replace to keep net even until ostomy output normalizes- check am cortisol given recurrent hypotension to eval for adrenal insufficiency- Can consider GI or surgery consultation if not improvement with above # ALMA# Hypotension# Hypovolemic hyponatremia- Baseline creatinine 1.1. admission 2.4; likely pre-renal or pre-renal progressed to ATN in the setting of volume depletion- s/p 2L NSS in EC, will start LR @ 125cc/hour x24 hours; f/u ostomy output and replace with IVF to keep net even- Avoid nephrotoxic medications, renally dose medications# Pre-syncope- patient reports seeing black spots on changing position, states this was present even on discahrge last admission- Suspect this is most likely due to orthostatic hypotension in the setting of volume depletion, but can check orthostatic vital signs after he is fluid replete# Homelessness- social work consult placed for assistance with homeless resources, homeless jareth- not having access to medication refills is the primary reason for his readmission, will try to discharge with as many pills as possible; discuss with social work other options (potentially healthcare for the homeless)FULL CODEDVT PPX: low risk, ambulationDIET: regularDispo: Hospitalize as observation, IMU given hypotension, can downgrade if Bps improved tomorrow, telemetry, HOT 5Catherine Abdi Schmitt.Gate Agent, [facility]# [id number] 2021 7:50 PM [id number] and physical [id number]:03:07History and physical [id number] .[id number] for patient [id number]:071.2.840.114 350.1.72.3.15|[id number] .[id number] Procedure Notes Date/Time Note Provider Source 2022-02-19 06:40:13 [id number]:40:13Format Brittani Mccain RN [facility] of this note might System be different from the original.Vascular Access team consulted for difficult venous access. Patient assessed for midline. 18g 10cm midline catheter inserted in right upper arm using ultrasound guidance. Brisk blood return; flushes easily and w/o pain using 10ml 0.9NS Pt tolerated well. No c/o pain or discomfort. [id number] [id number]:40:25 Procedure [id number] [id number] for patient [id number] Evertsz [facility] [place], [place] [id number]: 40:[id number]. 3.15|[id number]. [id number] 5
[2023-06-05 16:21] LABS: Specific Gravity > 1.030 (1.005-1.030); Urine Bacteria None Seen /HPF (<20); Urine Bilirubin NEGATIVE (Negative); Urine Blood Negative (Negative); Urine Clarity Clear (Clear); Urine Color Yellow (Yellow); Urine Glucose NEGATIVE (Negative); Urine Mucus 2+ /HPF (None Seen); Urine Protein 1+ (Negative); Urine RBC <5 /HPF (None Seen); Urine Urobilinogen 1+ (Normal); Urine pH 6.5 (5.0-7.0)
[2023-06-05 16:31] LABS: Absolute Lymphocytes (CBC) 1.6 K/uL (0.7-4.9); Hematocrit 33.2 % (39.6-49.0); Lymphocytes % 30.7 % (15.3-44.8); MCV 87.6 fL (80-100); Platelets 253 thou/uL (152-406); RBC Red Blood Cell Count 3.79 M/uL (4.33-5.43)
[2023-06-05 16:33] LABS: Albumin 3.5 g/dL (3.4-5.0); Bilirubin Total 0.5 mg/dL (0.2-1.0); Potassium 4.1 mEq/L (3.5-5.1); Protein, Total 6.6 g/dL (6.4-8.2)
--- NOTE | 2023-06-05 17:16 | RAD REPORT ---
EXAM DESCRIPTION: CT - Abdomen Pelvis Wo Contrast - 06/05/2023 4:51 pm CLINICAL HISTORY: Abdominal pain COMPARISON: March 2023,2021 and 2019 TECHNIQUE: Computed axial tomography of the abdomen and pelvis was obtained. IV and oral contrast we re not requested. All CT scans are performed using dose optimization technique as appropriate and may include automated exposure control or mA/KV adjustment according to patient size. FINDINGS: The evaluation of solid organs, vessels and bowel is limited secondary to the lack of con trast administration. 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 Spleen, pancreas, adrenals and kidneys grossly normal Postsurgical changes involve the large and small bowel. Dilated bowel extends from the pelvis to the right upper quadrant measuring up to centimeters. On sev eral prior exams this has been present. On other exams caliber was less. There is mild dilatation of rectum. No free air. No abscess. IMPRESSION: Dilated bowel from the pelvis extending to the right upper quadrant of the abdomen. This may represent sigmoid colon. Another consideration is that this represents small bowel and a large p ortion of the colon has been resected. The dilatation has more of the appearance of an ileus than obs truction. If the patient's symptoms persist then follow up plain films of abdomen would be recommend ed
--- NOTE | 2023-06-05 17:46 | ER ---
Nurse's Notes [facility] Name: Rico Mcneill Age: 53 yrs Sex: Male : 1970 Arrival Date: 06/05/2023 Time: 15:02 Bed 8 Private MD: Diagnosis: Abdominal pain, Generalized;Ileus, unspecified Presentation: 06/05 15:20 Chief complaint: Patient states: Abdominal pain "feel bloated" since Thursday, getting nj1 worse. 15:20 Method Of Arrival: EMS: [facility] 15:20 Coronavirus screen: Vaccine status: Patient reports receiving the 2nd dose of the covid nj1 vaccine. Ebola Screen: Patient denies travel to an Ebola-affected area in the 21 days before illness onset. Initial Sepsis Screen: Does the patient meet any 2 criteria? No. Patient's initial sepsis screen is negative. Does the patient have a suspected source of infection? No. Patient's initial sepsis screen is negative. Risk Assessment: Do you want to hurt yourself or someone else? Patient reports no desire to harm self or others. Onset of symptoms was June 03, 2023. 15:20 Acuity: OCTAVIO 3 nj1 Historical: - Allergies: 15:28 NKDA; nj1 - PMHx: 15:28 Hypertensive disorder; ileostomy; nj1 - PSHx: 15:28 ileostomy reversal ; October 2022; Small bowel resection with ileostomy; nj1 - Immunization history:: Client reports receiving the 2nd dose of the Covid vaccine. - Social history:: Smoking status: Patient reports use of chewing tobacco. Screenin:59 [facility] ED Fall Risk Assessment (Adult) History of falling in the last 3 months, ld1 including since admission No falls in past 3 months (0 pts). Abuse screen: Denies threats or abuse. Denies injuries from another. Nutritional screening: On. Nutritional screening: No deficits noted. Tuberculosis screening: No symptoms or risk factors identified. Assessment: 15:59 General: Appears in no apparent distress. comfortable, Behavior is calm, cooperative, ld1 appropriate for age. Pain: Complains of pain in abdomen Pain does not radiate. Pain currently is 8 out of 10 on a pain scale. Quality of pain is described as throbbing. Neuro: Level of Consciousness is awake, alert, obeys commands, Oriented to person, place, time, situation. Cardiovascular: Capillary refill < 3 seconds Patient's skin is warm and dry. Respiratory: Airway is patent Respiratory effort is even, unlabored. GI: Abdomen is round non-distended, Colostomy site is clean and dry. Bowel sounds present X 4 quads. Abd is soft Abdomen is tender to palpation Reports lower abdominal pain, upper abdominal pain, nausea. : No signs and/or symptoms were reported regarding the genitourinary system. EENT: No signs and/or symptoms were reported regarding the EENT system. Derm: No signs and/or symptoms reported regarding the dermatologic system. Musculoskeletal: No signs and/or symptoms reported regarding the musculoskeletal system. Vital Signs: 15:20 BP 111 / 78; Pulse 86; Resp 18; Temp 98.4(O); Pulse Ox 100% on R/A; Weight 65.77 kg; nj1 Height 6 ft. 1 in. ; Pain 9/10; 15:59 BP 118 / 83; Pulse 74; Resp 18; Pulse Ox 100% ; Pain 8/10; ld1 17:00 BP 132 / 84; Pulse 69; Resp 18; Pulse Ox 100% on R/A; ph 20:01 BP 108 / 76; Pulse 69; Resp 16; Temp 98; Pulse Ox 100% on R/A; rv 15:20 Body Mass Index 19.13 (65.77 kg, 185.42 cm) nj1 15:20 Pain Scale: Adult nj1 15:59 Pain Scale: Adult ld1 Rustam Coma Score: 20:01 Eye Response: spontaneous(4). Motor Response: obeys commands(6). Verbal Response: rv oriented(5). Total: 15. ED Course: 15:13 Patient arrived in ED. mg5 15:28 Demario Soriano MD is Attending Physician. kdr 15:28 Triage completed. nj1 15:29 Arm band placed on right wrist. nj1 15:59 Patient has correct armband on for positive identification. Placed in gown. Bed in low ld1 position. Call light in reach. Side rails up X2. media monitor on. Pulse ox on. NIBP on. Door closed. Noise minimized. Warm blanket given. 15:59 No provider procedures requiring assistance completed. Inserted saline lock: 22 gauge ld1 in left wrist, using aseptic technique. Blood collected. 16:52 Abdomen In Process Unspecified. EDMS 17:44 Varun Liao MD is Hospitalizing Provider. kdr 19:53 Mendoza Hilario, BRITTNY is Primary Nurse. rv 20:02 Patient admitted, IV remains in place. rv 20:03 Provided Education on: NPO. rv Administered Medications: 15:59 Drug: Ondansetron IVP 4 mg IVP once; over 2 minutes Route: IVP; Site: left wrist; ld1 20:03 Follow up: Response: No adverse reaction rv 15:59 Drug: NS 0.9% IV 500 ml IV at bolus once Route: IV; Rate: bolus; Site: left wrist; ld1 20:03 Follow up: IV Status: Completed infusion; IV Intake: 500ml rv 18:08 Drug: metroNIDAZOLE IVPB 500 mg 100 ml IVPB at 200 ml/hr once over 30 mins Volume: 100 ld1 ml; Route: IVPB; Rate: 200 ml/hr; Infused Over: 30 mins; Site: left forearm; 19:12 Follow up: Response: No adverse reaction; IV Status: Completed infusion; IV Intake: cm10 100ml 19:12 Drug: Ciprofloxacin IVPB 400 mg 200 ml IVPB once over 60 mins Volume: 200 ml; Route: cm10 IVPB; Infused Over: 60 mins; Site: left antecubital; 20:02 Follow up: IV Status: Completed infusion; IV Intake: 100ml rv Medication: 15:59 VIS not applicable for this client. ld1 Intake: 19:12 IV: 100ml; Total: 100ml. cm10 20:02 IV: 100ml; Total: 200ml. rv 20:03 IV: 500ml; Total: 700ml. rv Outcome: 17:45 Decision to Hospitalize by Provider. kdr 20:02 Admitted to Tele accompanied by nurse, via wheelchair, room 425, with chart, Report rv called to [facility] 20:02 Condition: good 20:02 Instructed on the need for admit, 20:28 Patient left the ED. rv Signatures: Dispatcher [employer] EDMS Demario Soriano MD MD kdr Hall, Patricia, RN RN Mendoza Hilario, RN RN rv Rosaura Alberto RN RN ld1 Judith Harrell RN RN nj1 Alisa Diaz RN RN cm10 Hyacinth Montes mg5
--- NOTE | 2023-06-05 17:46 | EDPHYS ---
Physician Documentation [facility] Name: Rico Mcneill Age: 53 yrs Sex: Male : 1970 Arrival Date: 06/05/2023 Time: 15:02 Bed 8 Private MD: ED Physician Demario Soriano HPI: 06/05 20:26 This 53 yrs old Male presents to ER via EMS with complaints of Abdominal Pain. kdr 20:26 Patient presents to the ED feeling like he is bloated and distended in his abdomen. kdr This started on Thursday. Patient describes his pain as a 9 out of 10. Patient does not appear to be acutely ill or in significant pain but nonetheless states that he cannot get comfortable. He has not had any vomiting. Has had some nausea. Patient denies fever. Patient has been seen here multiple times for abdominal pain. Patient had an ileostomy that was taken down at [facility] in October of this year. The patient was seen and admitted at the end of March for similar situation. Patient had an ileus at that time which resolved over several days and then the patient was discharged without complication. Since then the patient has not been seen in this facility. Patient is nontoxic appearing and stable on initial presentation. Onset: The symptoms/episode began/occurred gradually, 3 day(s) ago. Severity of symptoms: At their worst the symptoms were mild in the emergency department the symptoms are unchanged. The patient has experienced similar episodes in the past, multiple times. The patient has not recently seen a physician. Historical: - Allergies: 15:28 NKDA; nj1 - PMHx: 15:28 Hypertensive disorder; ileostomy; nj1 - PSHx: 15:28 ileostomy reversal ; October 2022; Small bowel resection with ileostomy; nj1 - Immunization history:: Client reports receiving the 2nd dose of the Covid vaccine. - Social history:: Smoking status: Patient reports use of chewing tobacco. ROS: 20:26 Constitutional: Negative for fever, chills, and weight loss, Eyes: Negative for injury, kdr pain, redness, and discharge, ENT: Negative for injury, pain, and discharge, Neck: Negative for injury, pain, and swelling, Cardiovascular: Negative for chest pain, palpitations, and edema, Respiratory: Negative for shortness of breath, cough, wheezing, and pleuritic chest pain, Back: Negative for injury and pain, : Negative for injury, bleeding, discharge, and swelling, MS/Extremity: Negative for injury and deformity, Skin: Negative for injury, rash, and discoloration, Neuro: Negative for headache, weakness, numbness, tingling, and seizure activity. Psych: Negative for depression, anxiety, suicide ideation, homicidal ideation, and hallucinations, Allergy/Immunology: Negative for hives, rash, and allergies, Endocrine: Negative for neck swelling, polydipsia, polyuria, polyphagia, and marked weight changes, Hematologic/Lymphatic: Negative for swollen nodes, abnormal bleeding, and unusual bruising, 20:26 Abdomen/GI: Positive for abdominal pain, nausea, abdominal distension, Negative for vomiting, diarrhea, constipation, abdominal cramps, anorexia, dysphagia, hematemesis, Exam: 20:26 Constitutional: This is a well developed, well nourished patient who is awake, alert, kdr and in no acute distress. Head/Face: Normocephalic, atraumatic. Eyes: Pupils equal round and reactive to light, extra-ocular motions intact. Lids and lashes normal. Conjunctiva and sclera are non-icteric and not injected. Cornea within normal limits. Periorbital areas with no swelling, redness, or edema. Neck: Trachea midline, no thyromegaly or masses palpated, and no cervical lymphadenopathy. Supple, full range of motion without nuchal rigidity, or vertebral point tenderness. No Meningismus. Chest/axilla: Normal chest wall appearance and motion. Nontender with no deformity. No lesions are appreciated. Cardiovascular: Regular rate and rhythm with a normal S1 and S2. No gallops, murmurs, or rubs. Normal PMI, no JVD. No pulse deficits. Respiratory: Lungs have equal breath sounds bilaterally, clear to auscultation and percussion. No rales, rhonchi or wheezes noted. No increased work of breathing, no retractions or nasal flaring. Back: No spinal tenderness. No costovertebral tenderness. Full range of motion. Skin: Warm, dry with normal turgor. Normal color with no rashes, no lesions, and no evidence of cellulitis. MS/ Extremity: Pulses equal, no cyanosis. Neurovascular intact. Full, normal range of motion. Neuro: Awake and alert, GCS 15, oriented to person, place, time, and situation. Cranial nerves II-XII grossly intact. Motor strength 5/5 in all extremities. Sensory grossly intact. Cerebellar exam normal. Normal gait. Psych: Awake, alert, with orientation to person, place and time. Behavior, mood, and affect are within normal limits. 20:26 Abdomen/GI: Inspection: abdomen appears normal, Bowel sounds: active, all quadrants, hyperactive, in all quadrants, Palpation: soft, mild abdominal tenderness, in all quadrants, Vital Signs: 15:20 BP 111 / 78; Pulse 86; Resp 18; Temp 98.4(O); Pulse Ox 100% on R/A; Weight 65.77 kg; nj1 Height 6 ft. 1 in. ; Pain 9/10; 15:59 BP 118 / 83; Pulse 74; Resp 18; Pulse Ox 100% ; Pain 8/10; ld1 17:00 BP 132 / 84; Pulse 69; Resp 18; Pulse Ox 100% on R/A; ph 20:01 BP 108 / 76; Pulse 69; Resp 16; Temp 98; Pulse Ox 100% on R/A; rv 15:20 Body Mass Index 19.13 (65.77 kg, 185.42 cm) nj1 15:20 Pain Scale: Adult nj1 15:59 Pain Scale: Adult ld1 Rustam Coma Score: 20:01 Eye Response: spontaneous(4). Motor Response: obeys commands(6). Verbal Response: rv oriented(5). Total: 15. MDM: 17:42 Data reviewed: vital signs, nurses notes. ED course: Patient remained stable in the ED kdr though he was still complaining of abdominal pain (9 out of 10) but not in any acute distress and drinking coffee.. 17:43 ED course: I consulted Dr. Benoit, he indicated he would see the patient in consult. He kdr asked that the patient be given empiric antibiotics (Cipro and Flagyl) and that as long as he was not vomiting he could forego an NG tube. Patient was admitted to the floor in stable condition.. 17:45 Patient medically screened. [facility] 06/05 15:36 Order name: CBC with Diff; Complete Time: 17:21 kdr 06/05 15:36 Order name: CMP; Complete Time: 17:21 kdr 06/05 15:36 Order name: Lipase; Complete Time: 17:21 kdr 06/05 15:36 Order name: Urinalysis w/ reflexes; Complete Time: 17:21 kdr 06/05 16:46 Order name: Abdomen ; Complete Time: 17:21 EDAZ 06/05 15:36 Order name: IV Saline Lock; Complete Time: 15:59 kdr 06/05 15:36 Order name: Labs collected and sent; Complete Time: 15:59 kdr Administered Medications: 15:59 Drug: Ondansetron IVP 4 mg IVP once; over 2 minutes Route: IVP; Site: left wrist; ld1 20:03 Follow up: Response: No adverse reaction rv 15:59 Drug: NS 0.9% IV 500 ml IV at bolus once Route: IV; Rate: bolus; Site: left wrist; ld1 20:03 Follow up: IV Status: Completed infusion; IV Intake: 500ml rv 18:08 Drug: metroNIDAZOLE IVPB 500 mg 100 ml IVPB at 200 ml/hr once over 30 mins Volume: 100 ld1 ml; Route: IVPB; Rate: 200 ml/hr; Infused Over: 30 mins; Site: left forearm; 19:12 Follow up: Response: No adverse reaction; IV Status: Completed infusion; IV Intake: cm10 100ml 19:12 Drug: Ciprofloxacin IVPB 400 mg 200 ml IVPB once over 60 mins Volume: 200 ml; Route: cm10 IVPB; Infused Over: 60 mins; Site: left antecubital; 20:02 Follow up: IV Status: Completed infusion; IV Intake: 100ml rv Disposition Summary: 06/05/23 17:45 Hospitalization Ordered Notes: Hospitalization Status: Observation kdr Provider: Varun Liao Location: Telemetry/MedSurg (observation) kdr Condition: Fair kdr Problem: an acute exacerbation kdr Symptoms: have improved kdr Bed/Room Type: Standard kdr Room Assignment: 425(06/05/23 19:34) cg Diagnosis - Abdominal pain, Generalized kdr - Ileus, unspecified kdr Forms: - Medication Reconciliation Form kdr - SBAR form kdr - Leadership Thank You Letter kdr Signatures: Dispatcher [employer] Demario Davis MD MD kdr Annia Blas RN RN cg Rosaura Alberto RN RN ld1 Judith Harrell RN RN jerry1 Alisa Diaz RN RN cm10 Sulaiman, Mendoza RN rv Corrections: (The following items were deleted from the chart) 16:46 15:37 Abdomen Pelvis W Con+CT.RAD.BRZ ordered. EDMS EDMS 19:34 17:45 kdr cg
[2023-06-05] MEDS ORDERED: CIPROFLOXACIN 400mg IV 400 MG/200 ML BAG IV ONE (18:03)
[2023-06-05] MEDS ORDERED: METRONIDAZOLE 500mg IVPB 500 MG/100 ML BAG IV ONE (18:03)
--- NOTE | 2023-06-05 18:31 | P.HP ---
Certification for Inpatient Patient admitted to: Observation With expected LOS: <2 Midnights Patient will require the following post-hospital care: None Practitioner: I am a practitioner with admitting privileges, knowledge of patient current condition, hospital course, and medical plan of care. Services: Services provided to patient in accordance with Admission requirements found in Title 42 Section 412.3 of the Code of Federal Regulations Patient History Date of Service: 06/05/23 Reason for admission: Ileus History of Present Illness: 53-year-old male with history of BPD, hypothyroidism, previous ileostomy with reversal presents emergency department with chief complaint of abdominal swelling, pain. He reports his symptoms began a few days ago has frequent problems with ileus/bowel obstruction after his abdominal surgery which was in 2000. She was evaluated in the emergency department her labs are significant for creatinine 1.61 CT abdomen pelvis was performed without IV contrast which showed dilated bowel from the pelvis extending to the right upper quadrant of the abdomen. This may represent sigmoid colon. Another consideration is that this represent small bowel and a large portion of colon has been resected. The dilation has more the appearance of an ileus than obstruction. The patient's symptoms persist and follow-up plain films abdomen would be recommended. ED discussed case with general surgery who will consult, patient to be admitted for ileus, abdominal pain. Allergies No Known Drug Allergies Allergy (Verified 09/04/22 02:36) Unknown Home Medications: NK [No Home Meds] 10/02/22 - Past Medical/Surgical History Diabetic: No -: Hypothyroidism -: Bipolar Disorder -: HTN -: bowel obstruction -: Colectomy -: Ileostomy with reversal Psychosocial/ Personal History: Patient is homeless. - Family History Father -: Cancer Mother -: Heart disease - Social History Smoking Status: Never smoker Alcohol use: No CD- Drugs: No Caffeine use: Yes Place of Residence: Home Review of Systems 10-point ROS is otherwise unremarkable Gastrointestinal: Nausea, Abdominal Pain, Distention Physical Examination - Physical Exam General: Alert, In no apparent distress, Oriented x3 HEENT: Atraumatic, PERRLA, Mucous membr. moist/pink, EOMI, Sclerae nonicteric Neck: Supple, 2+ carotid pulse no bruit, No LAD, Without JVD or thyroid abnormality Respiratory: Clear to auscultation bilaterally, Normal air movement Cardiovascular: Regular rate/rhythm, Normal S1 S2 Gastrointestinal: Normal bowel sounds, Distended (Mild) Musculoskeletal: No tenderness Integumentary: No rashes Neurological: Normal speech, Normal strength at 5/5 x4 extr, Normal tone, Normal affect - Studies Laboratory Data (last 24 hrs) 06/05/23 06/05/23 16:03 16:03 WBC 5.20 Hgb 11.0 L Hct 33.2 L Plt Count 253 Sodium 143 Potassium 4.1 BUN 17 Creatinine 1.61 H Glucose 87 Total Bilirubin 0.5 AST 32 ALT 29 Alkaline Phosphatase 75 Lipase 38 Assessment and Plan - Plan Assessment: Ileus-history of abdominal surgery/ileostomy with reversal Hypothyroidism BPD Plan: Ileus-history of abdominal surgery/ileostomy with reversal N.p.o., IVF, empiric antibiotics, as needed pain medication. Surgical consult, plan films in the morning. Hypothyroidism BPD Continue home medications when appropriate. DVT PPX: Lovenox Code status: Full Discharge Plan: Home Plan to discharge in: 24 Hours - Advance Directives Does patient have a Living Will: No Does patient have a Durable POA for Healthcare: No - Code Status/Comfort Care Code Status Assessed: Yes (Full code) Critical Care: No Time Spent Managing Pts Care (In Minutes): 55
[2023-06-05 20:40] VITALS: O2SAT 100
[2023-06-05 20:44] VITALS: BMI 19.1
[2023-06-05] MEDS ORDERED: MORPHINE 2 MG/ML SYR IV PRN (20:52)
[2023-06-05] MEDS ORDERED: ONDANSETRON 4 MG/2 ML VIAL IV PRN (20:52)
[2023-06-05] MEDS: NA CHLORIDE 0.9% 1,000 ML IV SCH (21:14)
[2023-06-06] MEDS: METRONIDAZOLE 500mg IVPB 500 MG/100 ML BAG IV SCH ×2 (01:06→09:33)
[2023-06-06] MEDS ORDERED: CIPROFLOXACIN 400mg IV 400 MG/200 ML BAG IV SCH (06:00)
[2023-06-06 06:36] LABS: Absolute Lymphocytes (CBC) 1.5 K/uL (0.7-4.9); Hematocrit 31.8 % (39.6-49.0); Lymphocytes % 38.2 % (15.3-44.8); MCV 87.7 fL (80-100); Platelets 181 thou/uL (152-406); RBC Red Blood Cell Count 3.62 M/uL (4.33-5.43)
[2023-06-06 06:51] LABS: Potassium 3.8 mEq/L (3.5-5.1)
--- NOTE | 2023-06-06 08:23 | RAD REPORT ---
EXAM DESCRIPTION: RAD - Abdomen 1 View (KUB) - 06/06/2023 6:38 am CLINICAL HISTORY: Abdomen pain FINDINGS: Mild decrease in the caliber of dilated bowel right upper quadrant. Mild increase in the caliber dilated bowel right lower quadrant/central lower abdomen/upper pelvis. D ilated loop measures 9.7 centimeters Remainder of bowel gas pattern is diminished
[2023-06-06] MEDS ORDERED: ENOXAPARIN 40 MG/0.4 ML SQ SCH (09:00)
[2023-06-06] MEDS: NA CHLORIDE 0.9% 1,000 ML IV SCH (09:33)
--- NOTE | 2023-06-06 10:16 | P.PN ---
Subjective Date of Service: 06/06/23 Chief Complaint: Ileus Physical Examination - Vital Signs Temperature: 97.0 F Blood Pressure: 106/71 Pulse: 57 Respirations: 14 Pulse Ox (%): 100 - Studies Laboratory Data (last 24 hrs) 06/05/23 06/05/23 16:03 16:03 WBC 5.20 Hgb 11.0 L Hct 33.2 L Plt Count 253 Sodium 143 Potassium 4.1 BUN 17 Creatinine 1.61 H Glucose 87 Total Bilirubin 0.5 AST 32 ALT 29 Alkaline Phosphatase 75 Lipase 38 Assessment And Plan - Current Problems (Diagnosis) (1) Bowel obstruction Current Visit: Yes Status: Acute Plan: Dilated bowel from the pelvis extending to the right upper quadrant of the abdomen. This may represent sigmoid colon. Another consideration is that this represents small bowel and a large portion of the colon has been resected. The dilatation has more of the appearance of an ileus than obstruction. If the patient's symptoms persist then follow up plain films of abdomen would be recommended
--- NOTE | 2023-06-06 12:16 | CON ---
Date of Consultation: 06/06/2023 Reason For Consultation: Abdominal pain. History Of Present Illness: Patient is a 53-year-old gentleman with multiple medical problems who re cently had a bowel resection followed by an ileostomy and reversal back in October of this year at [facility] . Patient is homeless and has no way of following up with his doctors in [place] at this time. He reports that a few days ago he started having abdominal pain. The patient has no nausea or vomiting . Patient currently is passing gas. No sore throat, runny nose, cough, headaches, or dizziness. No chest pain. Review of Systems: Otherwise, unremarkable. Please note, the details of the surgery done at [facility] are not available to u s at this time. Past Medical History: Hypothyroidism, bipolar disorder, hypertension. Past Surgical History: Bowel obstruction, ileostomy with reversal. Allergies: NO ALLERGIES. Social History: Patient does not smoke and denies drinking alcohol. Family History: Heart disease and unknown type of cancer in the father. Objective: Vital Signs: Stable. He is afebrile. General: He is awake, alert, oriented x3. Head and Neck: No neck masses. No JVD. Throat clear. Neck is supple. Chest: Clear. Heart: S1, S2. Abdomen: Soft, nondistended, nontender. Positive bowel sounds. Extremities: Neurovascularly intact. Neuro: Nonfocal. Diagnostic Data: KUB x-ray done today shows mild decrease in the caliber of dilated bowel in the rig ht upper quadrant. Mild increase in the caliber of dilated bowel in the right lower quadrant, centra l lower abdomen, upper pelvis. Remainder of the bowel gas pattern is diminished. CT of the abdomen and pelvis reviewed as well, which shows dilated bowel from the pelvis extending to the right upper q uadrant of the abdomen. This may represent sigmoid colon. Another consideration at present is small bowel and large portion of the colon has been resected. The dilatation has more the appearance of a n ileus rather than an obstruction. If the patient's symptoms persisted, follow up plain film would be recommended. Laboratory Data: White count is 4000, there is normal left shift. H and H are 10.5 and 31.8. Chemi stry reviewed, essentially unremarkable. Creatinine is slightly elevated 1.33. Assessment: 53-year-old gentleman with likely ileus. Etiology is unclear as the patient has had uvaldo ears to be a complicated surgery at [facility]. Recommendation: Currently, patient is clinically doing well. We can follow him and then start him o n clear liquids and if tolerated can be advanced and discharged in the next day or 2. There is no nh ed for any surgical intervention at this time. I would recommend, however, getting the records from [facility] if possible and also advised the patient should he be discharged on this admission and require m edical followup, highly recommended that he follow up with the surgeons that did the procedure on him as they would have a better understanding of the etiology of his symptomology that makes him go to t he ER rather often. Case discussed with Dr. Liao. PEGGY/CAROLE Voice ID: [id number] Report ID: [id number]
[2023-06-06] MEDS ORDERED: INFLUENZA VACCINE (for 6+ mo) 0.5 ML DOSE IMVAC ONE (15:00)
[2023-06-06 15:40] VITALS: BP 113/74; TEMP 97.4
--- NOTE | 2023-06-07 10:57 | P.DS ---
Admission Date: 06/05/23 Discharge Date: 06/07/23 Disposition: ROUTINE DISCHARGE Discharge Condition: GOOD Reason for Admission: Ileus - Problems (1) Bowel obstruction Status: Acute Brief History of Present Illness: Patient is 53 years of age admitted with abdominal distention Hospital Course: He was admitted to the hospital CT scan findings as below Dilated bowel from the pelvis extending to the right upper quadrant of the abdomen. This may represent sigmoid colon. Another consideration is that this represents small bowel and a large portion of the colon has been resected. The dilatation has more of the appearance of an ileus than obstruction. If the patient's symptoms persist then follow up plain films of abdomen would be recommended Patient has had bowel surgery before at [facility] he stated that he started complaining of sudden onset abdominal distention was admitted abdominal distention resolved he was seen by Dr. Benoit at the time of discharge patient ambulated tolerated diet well was advised to follow-up with his general surgeon at [facility] patient has had a colostomy before that was reversed the time of discharge he was alert oriented x3 no abdominal distention soft no rebound tenderness positive bowel sounds labs all reviewed mildly anemic otherwise unremarkable Vital Signs/Physical Exam: Temp Pulse Resp BP Pulse Ox 97.4 F 56 12 113/74 100 06/06/23 15:39 06/06/23 15:39 06/06/23 15:39 06/06/23 15:39 06/06/23 15:39 Laboratory Data at Discharge: WBC 4.00 thou/uL (4.3-10.9) L 06/06/23 06:03 Hgb 10.5 g/dL (13.6-17.9) L 06/06/23 06:03 Hct 31.8 % (39.6-49.0) L 06/06/23 06:03 Plt Count 181 thou/uL (152-406) D 06/06/23 06:03 Sodium 143 mEq/L (136-145) 06/06/23 06:03 Potassium 3.8 mEq/L (3.5-5.1) 06/06/23 06:03 BUN 18 mg/dL (7-18) 06/06/23 06:03 Creatinine 1.33 mg/dL (0.70-1.30) H 06/06/23 06:03 Glucose 98 mg/dL (74-106) 06/06/23 06:03 Total Bilirubin 0.5 mg/dL (0.2-1.0) 06/05/23 16:03 AST 32 U/L (15-37) 06/05/23 16:03 ALT 29 U/L (16-61) 06/05/23 16:03 Alkaline Phosphatase 75 U/L (45-117) 06/05/23 16:03 Lipase 38 U/L (13-75) 06/05/23 16:03 Home Medications: NK [No Home Meds] 10/02/22 Physician Discharge Instructions: F/U General surgery at [facility] Diet: Regular Followup: NONE,NONE [Primary Care Provider] - 1-2 Weeks (make appointmnet with primarcy care DR in 1-2 weeks )
== END 2023-06-06 15:52 | disposition home or self-care (01) ==
LOC: ER 15:02 → ERHOLD 18:23 → 4TH 20:09
PROVIDERS: ADMIT Internal Medicine Sleep Medicine; ATTEND Internal Medicine Sleep Medicine
DX: K56.7 Ileus, unspecified (principal); K56.609 Unspecified intestinal obstruction, unspecified as to partial versus complete obstruction; E03.9 Hypothyroidism, unspecified; R10.9 Unspecified abdominal pain; R11.0 Nausea; Z93.2 Ileostomy status; I10 Essential (primary) hypertension; F31.9 Bipolar disorder, unspecified; Z23 Encounter for immunization
CPT/HCPCS: 36415; 74018; 74176; 80048; 80053; 81001; 83690; 85025; 99285; G0378; J0744; J1650; J2270; J2405; J7030; J7040

== ENCOUNTER 2023-06-10 19:28 | Emergency (ER) | payer SELFPAY ==
--- OUTSIDE RECORDS SUMMARY | 2023-06-10 20:10 | XMS REPORT | Continuity of Care Document ---
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 Univers en 4-16 Oral, Q8H, ity of (TYLENOL) 19:00: First dose [place] tablet 00 on [facility] 1,000 mg 12/07/22 at [facility] h 1400, Until Discontinu ed, Routine lactated 2022-0 2023- No 500mL at 999 Unive rs ringers IV -16 04-16 mL/hr, 500 it y of infusion 17:45: 19:04 mL, [place] 500 mL 00 :00 Intravenou Medical s, ONCE, 1 Branch dose, On 12/07/22 at 1245, Routine lactated 2022-0 202- No 500mL at 999 Unive rs ringers IV -16 04-16 mL/hr, 500 it y of infusion 15:21: 16:01 mL, [place] 500 mL 00 :00 Intravenou Medical s, ONCE, 1 Branch dose, On [place] 12/07/22 at 1030, Routine ibuprofen 2022-0 Yes 400mg 400 mg, Univ ers (IBU) 4-16 Oral, TID ity of tablet 400 13:00: MEALS, [place] mg 00 First dose Medical on [place] Branch 12/07/22 at 0800, Until Discontinu ed, Routine methocarbam 0 Yes 500mg 500 mg, Un piyush oL 4-16 Oral, QID, ity of (ROBAXIN) 13:00: First dose [place] tablet 500 00 on [place] Medical mg 12/07/22 at Branch 0800, Until Discontinu ed, Routine D5W 0.45% 0 2022- No 1000mL at 50 Univ ers NaCl 16 04-16 mL/hr, ity of (1/2NS) IV 12:30: 23:10 1,000 mL, [place] infusion 00 :22 IV Medical 1,000 mL Infusion, Branch CONTINUOUS , Starting on [place] 12/07/22 at 0730, Until [place] 12/07/22 at 1810, Routine ketorolac 2022-0 2022- No 15mg 15 mg, Unive rs (TORADOL) 4-15 04-15 Slow IV ity of injection 05:00: 22:03 Push, Q6H, [place] 15 mg 00 :00 4 doses, Medical First dose Branch (after last reorder) on Thu12/06/22 at 0000, Last dose on Thu12/06/22 at 1800, Routine acetaminoph 2022-2022- No 1000mg 1,000 mg, Univers en ADULT 12-06-15 IV ity of (OFIRMEV) 03:00: 19:31 Infusion, [...] Discontinu ed, Routine, line maintenanc e lidocaine 2022-0 Yes 5mL 5 mL, Univers 1% (PF) 4-14 Subcutaneo ity of (XYLOCAINE) 12:03: us, PRN, [place] injection 5 43 Starting Medi mariusz mL on Thu Branch 12/05/22 at 0703, Until Discontinu ed, Routine, Local anesthesia NaCl 0.9% 2022-0 Yes 10mL 10 mL, Univer s (NS) 4-14 Slow IV ity of injection 12:03: Push, PRN, [place] 10 mL 43 Starting Medical on Thu Branch 12/05/22 at 0703, Until Discontinu ed, Routine, line maintenanc e lidocaine 2022-0 Yes 5mL 5 mL, Univers 1% (PF) 4-14 Subcutaneo ity of (XYLOCAINE) 12:03: us, PRN, [place] injection 5 43 Starting Medi mariusz mL on Thu Branch 12/05/22 at 0703, Until Discontinu ed, Routine, Local anesthesia ketorolac 2022-0 2022- No 15mg 15 mg, Unive rs (TORADOL) 12-05-15 Slow IV ity of injection 05:00: 04:59 [...] 1000mg 1,000 mg, Univers en ADULT 12-05 04-15 IV ity of (OFIRMEV) 03:00: 02:59 Infusion, [place] injection 00 :00 at 400 Medical 1,000 mg mL/hr Branch Administer over 15 Minutes, Q8H, 3 doses, First dose on Thu12/04/22 at 2200, Last dose on Thu12/05/22 at 1400, Routine
Indicatio n: Perioperat ector Patient ondansetron 2022-0 Yes 4mg 4 mg, Slow Univers (ZOFRAN 4-14 IV Push, ity of (PF)) 01:29: Q6HPRN, [place] injection 4 25 Nausea and Me dical mg Vomiting Branch (N/V), Starting on Thu12/04/22 at 2028
Do ses of ondansetro n 16 mg and above need to be administer ed via IV piggyback. For Dose >=24mg ECG monitoring is advisable.
ondansetron 3-0 Yes 4mg 4 mg, Slow Univers (ZOFRAN 4-14 IV Push, ity of (PF)) 01:29: Q6HPRN, [place] injection 4 25 Nausea and Me dical mg Vomiting Branch (N/V), Starting on [facility] 12/04/22 at 2028
Do ses of ondansetro n 16 mg and above need to be administer ed via IV piggyback. For Dose >=24mg ECG monitoring is advisable.
gabapentin 0 Yes 300mg 300 mg, Uni vers (NEURONTIN) 4-14 Oral, TID, it y of capsule 300 01:00: First dose [place] mg 00 on [facility] 12/04/22 at Branch 1999, Until Discontinu ed, Routine gabapentin 0 Yes 300mg 300 mg, Uni vers (NEURONTIN) 4-14 Oral, TID, it y of capsule 300 01:00: First dose [place] mg 00 on [facility] 12/04/22 at Branch 1999, Until Discontinu ed, Routine alvimopan 0 2022- No 12mg 12 mg, Unive rs (ENTEREG) 12-05-16 Oral, BID, ity of capsule 12 01:00: 00:59 4 doses, [place] mg 00 :00 First dose Medical on [facility] 12/04/22 at 1999, Last dose on [facility] 12/06/22 at 0800, Routine
Restricte d use approved by: [facility] R. - SURGERY/GE NERAL alvimopan 2022- No 12mg 12 mg, Unive rs (ENTEREG) 12-05-15 Oral, BID, ity of capsule 12 01:00: 13:45 4 doses, [place] mg 00 :00 First dose Medical on [facility] 12/04/22 at 1999, Last dose on [facility] 12/06/22 at 0800, Routine
Restricte d use approved by: [facility] R. - SURGERY/GE NERAL D5W 0.45% 0 Yes 1000mL at 125 Univ ers NaCl 4-14 mL/hr, ity of (1/2NS) IV 00:30: 1,000 mL, [place] infusion 00 IV Medical 1,000 mL Infusion, Branch CONTINUOUS , Starting on [facility] 12/04/22 at 1930, Until Discontinu ed, Routine D5W 0.45% 2022-0 2022- No 1000mL at 125 Uni vers NaCl 12-05-16 mL/hr, ity of (1/2NS) IV 00:30: 12:26 [...] Discontinu ed, Routine, Pain (scale 4-6) HYDROmorpho 2022-2022- No .5mg 0.5 mg, Un piyush ne 12-04 04-15 Slow IV ity of (DILAUDID) 23:16: 23:15 Push, [place] injection 03 :03 Q4HPRN, Medical 0.5 mg Starting Branch on [place] 12/04/22 at 1816, Until 12/06/22 at 1815, Routine, Pain (scale 7-10)
U se approved by (Faculty): GENERAL SURGERY
General surgeon approving: mayela HYDROmorpho 0 2022- No .5mg 0.5 mg, Un piyush ne 12-04 04-15 Slow IV ity of (DILAUDID) 23:16: 23:15 Push, [place] injection 03 :03 Q4HPRN, Medical 0.5 mg Starting Branch on [place] 12/04/22 at 1816, Until 12/06/22 at 1815, Routine, Pain (scale 7-10)
U se approved by (Faculty): GENERAL SURGERY
General surgeon approving: mayela alvimopan 2022-2022- No 12mg 12 mg, Unive rs (ENTEREG) 12-04 Oral, ity of capsule 12 13:00: 16:03 ONCE, 1 [place] mg 00 :00 dose, On Medical [place] Branch 12/04/22 at 0800, Routine
Restricte d use approved by: [facility] R. - SURGERY/GE NERAL magnesium 2022- No 4g [...] On [place] 12/04/22 at 0045, Routine iron 2022- No 500mg 500 mg, IV Unive rs sucrose 12-02 Infusion, ity of (VENOFER) 18:45: 23:41 ONCE, [place] 500 mg in 00 :00 Administer Medi mariusz NaCl 0.9% over 4 Branch (NS) 250 mL Hours, On infusion e 12/02/22 at 1345, For 1 dose cyanocobala [...] Starting Branch on Thu12/02/22 at 0900, Until [facility] 12/04/22 at 1816, Routine magnesium 2022- No 4g 4 g, IV Univ ers sulfate in 12-02 Piggyback, it y of water 4 12:30: 16:39 at 25 [place] gram/50 mL 00 :00 mL/hr Medical (8 %) IV Administer Branc h Piggyback 4 over 120 g Minutes, ONCE, 1 dose, On Thu12/02/22 at 0730, Routine lactated 0 2022- No 500mL at 999 Unive rs [...] 1115, Until Thu12/02/22 at 0850, Routine sulfur 2022-2022- No [id number] 5mL 5 mL, Unive rs hexafluorid 12-01 Intravenou i ty of e microsphr 15:00: 15:00 s, ONCE, 1 [place] (LUMASON) 00 :00 dose, On Medica l injection 5 Thu Branch mL 12/01/22 at 1000, Routine
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 : ISAÍAS HELM lactated 2022- No 500mL at 999 Unive rs ringers IV 12-01 mL/hr, 500 it y of infusion 06:00: 07:00 mL, [place] 500 mL 00 :00 Intravenou Medical s, ONCE, 1 Branch dose, On Thu12/01/22 at 0100, Routine lactated 2023-0 2023- No 500mL at 999 Unive rs ringers IV 12-01 04-10 mL/hr, 500 it y of infusion 02:15: 03:00 mL, [place] 500 mL 00 :00 Intravenou Medical s, ONCE, 1 Branch dose, On 11/30/22 at 2115, Routine diphenoxyla 2022-0 3- No 1{tbl} 1 tablet, Univers te-atropine 11-30 Oral, Q6H, i ty of (LOMOTIL) 17:00: 15:30 First dose [place] 2.5-0.025 00 :08 (after Medical mg tablet 1 last Branch tablet modificati on) on 11/30/22 at 1200, Until Discontinu ed, Routine lactated 2022-0 2022- No 500mL at 999 Unive rs ringers IV 11-30 04-10 mL/hr, 500 it y of infusion 14:00: 01:00 mL, [place] 500 mL 00 :00 Intravenou Medical s, ONCE, 1 Branch dose, On [place] 11/30/22 at 0900, Routine magnesium 2022- No 4g 4 g, IV Univ ers sulfate in 11-30-09 Piggyback, it y of water 4 13:45: 18:09 at 25 [place] gram/50 mL 00 :00 mL/hr Medical (8 %) IV Administer Branc h Piggyback 4 over 120 g Minutes, ONCE, 1 dose, On 11/30/22 at 0845, Routine NaCl 0.9% 2022-0 3- No 1000mL at 150 Uni vers (NS) IV 11-30 04-10 mL/hr, IV ity of infusion 13:15: 16:14 Infusion, [place] 1,000 mL 00 :31 CONTINUOUS Medic al , Starting Branch on 11/30/22 at 0815, Until 12/01/22 at 1114, Routine NaCl 0.9% 3-0 3- No 500mL at 999 Univ ers (NS) bolus 11-30 04-10 mL/hr, 500 it y of infusion 04:45: 01:00 mL, IV [place] 500 mL 00 :00 Piggyback, Medical ONCE, 1 Branch dose, On 11/29/22 at 2345, JOÃO NaCl 0.9% 2023-0 2023- No 1000mL at 75 Univ ers (NS) IV 11-29 mL/hr, IV ity of infusion 16:00: 13:02 Infusion, [place] 1,000 mL 00 :33 CONTINUOUS Medic al , Starting Branch on 11/29/22 at 1100, Until 11/30/22 at 0802, Routine diphenoxyla 3-0 2023- No 1{tbl} 1 tablet, [facility] te-atropine 11-29 Oral, Q8H, i ty of (LOMOTIL) 03:00: 13:19 First dose [place] 2.5-0.025 00 :36 on Thu Medical mg tablet 1 11/28/22 at [facility] tablet 2200, Until Discontinu ed, Routine loperamide 2022-0 2022- No 2mg 2 mg, Unive rs (IMODIUM 11-28 Oral, QID, ity of A-D) 21:00: 18:21 First dose [place] capsule 2 00 :50 (after Medical mg last Branch modificati on) on Thu11/28/22 at 1600, Until Discontinu ed, Routine cholestyram 2022-0 2022- No 1{packe 1 Packet, [facility] ine 11-28 t} Oral, TID, ity of [...] at 0900, Until Discontinu ed, Routine calcium 3-0 2023- No 1{tbl} 250 mg (1 Un piyush carbonate-v 11-28 tablet), ity of itamin D3 14:00: 15:30 Oral, [place] (OSCAL-250 00 :08 DAILY, Medical + D) 250 First dose Branc h mg-3.125 on Thu mcg (125 11/28/22 at unit) per 0900, tablet 250 Until mg Discontinu ed, Routine magnesium 2022- No 4g 4 g, IV Univ ers sulfate in 11-28 Piggyback, it y of water 4 11:00: 19:[address] [place] [address] gram/50 mL 00 :00 mL/hr Medical (8 [...] Routine sodium 2022- No 650mg 650 mg, Univ s bicarbonate 11-27 Oral, TID, i ty of (ANTACID 19:00: 15:30 First dose [place] (SODIUM 00 :08 on [place] Medical BICARBONATE 11/27/22 at [facility] )) tablet 1400, 650 mg Until Discontinu ed, Routine psyllium 2022-0 2022- No 1{packe 1 Packet, Univers husk 11-27 t} Oral, TID, ity of (METAMUCIL 19:00: 13:19 First dose [place] (SUGAR 00 :59 on [place] Medical FREE)) 3.4 11/27/22 at Bran ch gram oral 1400, powder Until packet 1 Discontinu Packet ed, Routine loperamide No 2mg 2 mg, Unive rs [...] Branch 6.99 Units ONCE, 1 dose, On [place] 11/27/22 at 1000, JOÃO
In dication for insulin: Hyperkalem ia- Please use the Insulin Protocol for Hyperkalem ia order set dextrose 50 2022- No 50mL 50 mL, Uni vers % in water 11-27 Slow IV ity o f (D50W) 15:00: 15:51 Push, [place] injection 00 :00 ONCE, 1 Medical 50 mL dose, On Branch [facility] 11/27/22 at 1000, JOÃO NaCl 0.9% 2022- No 1000mL at 9,999 U nivers (NS) IV 11-27 mL/hr, IV ity of infusion 15:00: 16:40 Infusion, [place] 1,000 mL 00 :00 ONCE, 1 Medical dose, On Branch [facility] 11/27/22 at 1000, JOÃO albuterol 2022- No 2.5mg 2.5 mg, Uni vers (PROVENTIL) 11-27- Inhalation i ty of 2.5 mg /3 15:00: 15:53 , ONCE, 1 [place] mL (0.083 00 :00 dose, On Medica l %) [place] 11/27/22 Branch nebulizer at 1000, solution STAT 2.5 mg calcium 2023-0 2023- No 2g 2 g, IV Univer s [...] mEq/L with our without EKG changes magnesium 2023-0 Yes 400mg 400 mg, Univ ers oxide 11-23 Oral, ity of (MAG-OX 14:00: DAILY, [place] 400) tablet 00 First dose Me dical 400 mg on [place] [facility] 11/23/22 at 0900, Until Discontinu ed, Routine magnesium 2023-0 2023- No 4g 4 g, IV Univ ers sulfate in 11-22 Piggyback, it y of water 4 12:15: 13:48 at 25 [place] gram/50 mL 00 :00 mL/hr Medical (8 %) IV Administer Branc h Piggyback 4 over 120 g Minutes, ONCE, 1 dose, On 11/22/22 at 0715, Routine lactated 2023-0 Yes 1000mL at 200 Unive rs ringers IV 4-01 mL/hr, ity of infusion 11:30: 1,000 mL, [place] 1,000 mL 00 IV Medical Infusion, Branch CONTINUOUS , Starting on 11/22/22 at 0630, Until Discontinu ed, Routine psyllium 2023-0 Yes [id number] 1{packe Take 1 Univers husk 3.4 11-22 t} Packet by ity of gram oral 00:00: mouth [place] powder 00 the Medical packet morning Branch and 1 Packet at noon and 1 Packet in the evening. psyllium 2023-0 Yes [id number] 1{packe Take 1 Univers husk 3.4 4-01 t} Packet by ity of gram oral 00:00: mouth [place] powder 00 the Medical packet morning Branch and 1 Packet at noon and 1 Packet in the evening. psyllium 3-0 Yes [id number] 1{packe Take 1 Univers husk 3.4 4-01 t} Packet by ity of gram oral 00:00: mouth [place] powder 00 the Medical packet morning Branch and 1 Packet at noon and 1 Packet in the evening. psyllium 2022-0 Yes [id number] 1{packe Take 1 Univers husk 3.4 4-01 t} Packet by ity of gram oral 00:00: mouth [place] powder 00 the Medical packet morning Branch and 1 Packet at noon and 1 Packet in the evening. psyllium 2022-0 2023- No [id number] 1{packe Take 1 Univers husk 3.4 4-01 [...] 1245, Until Thu11/21/22 at 1746, Routine magnesium 3-0 2022- No 2g 2 g, IV Univ ers sulfate in 11-21 Piggyback, it y of water 2 08:00: 10:07 Administer [place] gram/50 mL 00 :00 over 60 Medica l (4 %) Minutes, Branch infusion 2 ONCE, 1 g dose, On 3/31/23 at 0300, Routine iopamidol 2023-0 2023- No [id number] 500mL 500 mL, Univers (ISOVUE 11-20 Rectal, [...] at 2000, Until Discontinu ed, Routine psyllium 0 2022- No 1{packe 1 Packet, Univers husk 11-20 t} Oral, BID, ity of (METAMUCIL 01:00: 12:40 First dose [place] (SUGAR 00 :40 on Thu Medical FREE)) 3.4 11/19/22 at [facility] gram oral 2000, powder Until packet 1 Discontinu Packet ed, Routine NaCl 0.9% 2022- No 1000mL at 75 Univ ers (NS) IV 11-19-30 mL/hr, IV ity of infusion 22:30: 12:44 [...] 650 12 Starting Medic al mg on Thu11/19/22 at 1335, Until Discontinu ed, Routine, Pain (scale 1-3) ondansetron 2022- No 4mg 4 mg, Slow Univers (ZOFRAN 11-19 IV Push, ity of (PF)) 16:15: 16:05 ONCE, 1 [place] injection 4 00 :00 dose, On Medi mariusz mg Thu11/19/22 at 1115, JOÃO ketorolac 2022- No 30mg 30 mg, Unive rs [...] :00 dose, On Medi mariusz 400 mg [facility] Branch 11/06/22 at 1100, Routine magnesium 2022-0 [...] Thu11/05/22 at 2030, Routine sodium 2023-0 Yes [id number] 650mg Take 1 Univ ers bicarbonate 3-16 tablet by ity of 650 mg 00:00: mouth in [place] tablet the and 1 tablet at noon and 1 tablet in the evening. sodium 2023-0 Yes [id number] 650mg Take 1 Univ ers bicarbonate 3-16 tablet by ity of 650 mg 00:00: mouth in [place] tablet the and 1 tablet at noon and 1 tablet in the evening. sodium 2023-0 Yes [id number] 650mg Take 1 Univ ers bicarbonate 3-16 tablet by ity of 650 mg 00:00: mouth in [place] tablet the and 1 tablet at noon and 1 tablet in the evening. sodium 2023-0 Yes [id number] 650mg Take 1 Univ ers bicarbonate 3-16 tablet by ity of 650 mg 00:00: mouth in [place] tablet 00 the Medical morning Branch and 1 tablet at noon and 1 tablet in the evening. sodium 2023-0 Yes [id number] 650mg Take 1 Univ ers bicarbonate 3-16 tablet by ity of 650 mg 00:00: mouth in [place] tablet 00 the Medical morning Branch and 1 tablet at noon and 1 tablet in the evening. sodium 2023-0 Yes [id number] 650mg Take 1 Univ ers bicarbonate 3-16 tablet by ity of 650 mg 00:00: mouth in [place] tablet 00 the Medical morning Branch and 1 tablet at noon and 1 tablet in the evening. sodium 2023-0 Yes [id number] 650mg Take 1 Univ ers bicarbonate 3-16 tablet by ity of 650 mg 00:00: mouth in [place] tablet 00 the Medical morning Branch and 1 tablet at noon and 1 tablet in the evening. sodium 2023-0 Yes [id number] 650mg Take 1 Univ ers bicarbonate 3-16 tablet by ity of 650 mg 00:00: mouth in [place] tablet 00 the Medical morning Branch and 1 tablet at noon and 1 tablet in the evening. sodium 2023-0 Yes [id number] 650mg Take 1 Univ ers bicarbonate 3-16 tablet by ity of 650 mg 00:00: mouth in [place] tablet 00 the Medical morning Branch and 1 tablet at noon and 1 tablet in the evening. sodium 2023-0 Yes [id number] 650mg Take 1 Univ ers bicarbonate 3-16 tablet by ity of 650 mg 00:00: mouth in [place] tablet 00 the Medical morning Branch and 1 tablet at noon and 1 tablet in the evening. sodium 2023-0 Yes [id number] 650mg Take 1 Univ ers bicarbonate 3-16 tablet by ity of 650 mg 00:00: mouth in [place] tablet 00 the Medical morning Branch and 1 tablet at noon and 1 tablet in the evening. sodium 2023-0 Yes [id number] 650mg Take 1 Univ ers bicarbonate 3-16 tablet by ity of 650 mg 00:00: mouth in [place] tablet 00 the Medical morning Branch and 1 tablet at noon and 1 tablet in the evening. sodium 2023-0 Yes [id number] 650mg Take 1 Univ ers bicarbonate 3-16 tablet by ity of 650 mg 00:00: mouth in [place] tablet 00 the Medical morning Branch and 1 tablet at noon and 1 tablet in the evening. sodium 2023-0 Yes [id number] 650mg Take 1 Univ ers bicarbonate 3-16 tablet by ity of 650 mg 00:00: mouth in [place] tablet 00 the Medical morning Branch and 1 tablet at noon and 1 tablet in the evening. sodium 2023-0 Yes [id number] 650mg Take 1 Univ ers bicarbonate 3-16 tablet by ity of 650 mg 00:00: mouth in [place] tablet 00 the Medical morning Branch and 1 tablet at noon and 1 tablet in the evening. sodium 2023-0 Yes [id number] 650mg Take 1 Univ ers bicarbonate 3-16 tablet by ity of 650 mg 00:00: mouth in [place] tablet 00 the Medical morning Branch and 1 tablet at noon and 1 tablet in the evening. sodium 2023-0 Yes [id number] 650mg Take 1 Univ ers bicarbonate 3-16 tablet by ity of 650 mg 00:00: mouth in [place] tablet 00 the Medical morning Branch and 1 tablet at noon and 1 tablet in the evening. sodium 2023-0 Yes [id number] 650mg Take 1 Univ ers bicarbonate 3-16 tablet by ity of 650 mg 00:00: mouth in [place] tablet 00 the Medical morning Branch and 1 tablet at noon and 1 tablet in the evening. sodium 2023-0 Yes [id number] 650mg Take 1 Univ ers bicarbonate 3-16 tablet by ity of 650 mg 00:00: mouth in [place] tablet 00 the Medical morning Branch and 1 tablet at noon and 1 tablet in the evening. sodium 2023-0 Yes [id number] 650mg Take 1 Univ ers bicarbonate 3-16 tablet by ity of 650 mg 00:00: mouth in [place] tablet 00 the Medical morning Branch and 1 tablet at noon and 1 tablet in the evening. loperamide 2022- No 2mg 2 mg, Unive rs (IMODIUM 15 03-16 Oral, TID, ity of A-D) 19:00: 14:31 First dose [place] capsule 2 00 :21 (after Medical mg last Branch modificati on) on Thu11/05/22 at 1400, Until Discontinu ed, Routine COVID-19 2022-0 Yes 1{each} 0.3 mL (1 U nivers vaccine,mRN 3-15 Each), ity of A PF 14:40: Intramuscu [place] (PFIZER) 30 56 lar, Medical mcg/0.3 mL ONCE-PRIOR [facility] injection TO 0.3 mL DISCHARGE, 1 dose, [...] 1000mL at 200 Uni vers (NS) IV 11-05-15 mL/hr, IV ity of infusion 12:30: 18:24 Infusion, [place] 1,000 mL 00 :06 ONCE, 1 Medical dose, On Branch Thu11/05/22 at 0730, Routine NaCl 0.9% 2022- No 500mL at 999 Univ ers (NS) bolus 11-05-15 mL/hr, 500 it y of infusion 05:45: 06:00 mL, IV [place] 500 mL 00 :00 Piggyback, Medical ONCE, 1 Branch dose, On Thu11/05/22 at 0045, STAT loperamide 2022-0 2022- No 2mg 2 mg, Unive rs (IMODIUM 11-0515 Oral, BID, ity of A-D) 01:00: 11:55 First dose [place] capsule 2 00 :51 (after Medical mg last Branch modificati on) on Thu11/04/22 at 1999, Until Discontinu ed, Routine psyllium 2022-0 2022- No 1{packe 1 Packet, Univers husk 11-0515 t} Oral, BID, ity of (METAMUCIL 01:00: 11:55 First dose [place] (SUGAR 00 :51 (after Medical FREE)) 3.4 last Branch gram oral modificati powder on) on Thu 1 11/04/22 at Packet 1999, Until Discontinu ed, Routine calcium 2022-0 Yes [id number] 250mg Take 1 Uni vers carbonate-v 3-15 tablet by ity of itamin D3 00:00: mouth in [place] [address] 00 the Medical mg-3.125 morning. Branch mcg (125 unit) per tablet loperamide 2022-0 Yes [id number] 2mg Take 1 U nivers 2 mg 3-15 capsule by ity of capsule 00:00: mouth in [place] [address] the Medical morning Branch and 1 capsule at noon and 1 capsule in the evening. calcium 3-0 Yes [id number] 250mg Take 1 Uni vers carbonate-v 3-15 tablet by ity of itamin D3 00:00: mouth in [place] [address] 00 the Medical mg-3.125 morning. Branch mcg (125 unit) per tablet loperamide 3-0 Yes [id number] 2mg Take 1 U nivers 2 mg 3-15 capsule by ity of capsule 00:00: mouth in [place] 00 the Medical morning Branch and 1 capsule at noon and 1 capsule in the evening. calcium 2023-0 Yes [id number] 250mg Take 1 Uni vers carbonate-v 3-15 tablet by ity of itamin D3 00:00: mouth in [facility] 250 00 the Medical mg-3.125 morning. Branch mcg (125 unit) per tablet loperamide 3-0 Yes [id number] 2mg Take 1 U nivers 2 mg 3-15 capsule by ity of capsule 00:00: mouth in [place] [address] the Medical morning Branch and 1 capsule at noon and 1 capsule in the evening. calcium 3-0 Yes [id number] 250mg Take 1 Uni vers carbonate-v 3-15 tablet by ity of itamin D3 00:00: mouth in [place] [address] 00 the Medical mg-3.125 morning. Branch mcg (125 unit) per tablet loperamide 2022-0 Yes [id number] 2mg Take 1 U nivers 2 mg 3-15 capsule by ity of capsule 00:00: mouth in [place] [address] the Medical morning Branch and 1 capsule at noon and 1 capsule in the evening. calcium 2022-0 Yes [id number] 250mg Take 1 Uni vers carbonate-v 3-15 tablet by ity of itamin D3 00:00: mouth in [place] [address] the Medical mg-3.125 morning. Branch mcg (125 unit) per tablet loperamide 2022-0 Yes [id number] 2mg Take 1 U nivers 2 mg 3-15 capsule by ity of capsule 00:00: mouth in [place] [address] the [facility] morning Branch and 1 capsule at noon and 1 capsule in the evening. calcium 2022-0 Yes [id number] 250mg Take 1 Uni vers carbonate-v 3-15 tablet by ity of itamin D3 00:00: mouth in [place] [address] the Medical mg-3.125 morning. Branch mcg (125 unit) per tablet loperamide 2022-0 Yes [id number] 2mg Take 1 U nivers 2 mg 3-15 capsule by ity of capsule 00:00: mouth in [place] [address] the Medical morning Branch and 1 capsule at noon and 1 capsule in the evening. calcium 3-0 Yes [id number] 250mg Take 1 Uni vers carbonate-v 3-15 tablet by ity of itamin D3 00:00: mouth in [place] [address] the Medical mg-3.125 morning. Branch mcg (125 unit) per tablet loperamide 3-0 Yes [id number] 2mg Take 1 U nivers 2 mg 3-15 capsule by ity of capsule 00:00: mouth in [place] [address] the Medical morning Branch and 1 capsule at noon and 1 capsule in the evening. calcium 2023-0 Yes [id number] 250mg Take 1 Uni vers carbonate-v 3-15 tablet by ity of itamin D3 00:00: [place] in [place] 250 00 the Medical mg-3.125 morning. Branch mcg (125 unit) per tablet calcium 2023-0 Yes [id number] 250mg Take 1 Uni vers carbonate-v 3-15 tablet by ity of itamin D3 00:00: [place] 250 00 the Medical mg-3.125 morning. Branch mcg (125 unit) per tablet calcium 2023-0 Yes [id number] 250mg Take 1 Uni vers carbonate-v 3-15 tablet by ity of itamin D3 00:00: mouth [place] 250 00 the Medical mg-3.125 morning. Branch mcg (125 unit) per tablet calcium 2023-0 Yes [id number] 250mg Take 1 Uni vers carbonate-v 3-15 tablet by ity of itamin D3 00:00: mouth in [place] 250 00 the Medical mg-3.125 morning. Branch mcg (125 unit) per tablet calcium 2023-0 Yes [id number] 250mg Take 1 Uni vers carbonate-v 3-15 tablet by ity of itamin D3 00:00: mouth [place] 00 the Medical mg-3.125 morning. Branch mcg (125 unit) per tablet calcium 2023-0 Yes [id number] 250mg Take 1 Uni vers carbonate-v 3-15 tablet by ity of itamin D3 00:00: [place] 00 the Medical mg-3.125 morning. Branch mcg (125 unit) per tablet calcium 2023-0 Yes [id number] 250mg Take 1 Uni vers carbonate-v 3-15 tablet by ity of itamin D3 00:00: mouth [place] 00 the Medical mg-3.125 morning. Branch mcg (125 unit) per tablet calcium 2023-0 Yes [id number] 250mg Take 1 Uni vers carbonate-v 3-15 tablet by ity of itamin D3 00:00: mouth [place] 00 the Medical mg-3.125 morning. Branch mcg (125 unit) per tablet calcium 2023-0 Yes [id number] 250mg Take 1 Uni vers carbonate-v 3-15 tablet by ity of itamin D3 00:00: mouth in [place] [address] 00 the Medical mg-3.125 morning. Branch mcg (125 unit) per tablet calcium 2022-0 Yes [id number] 250mg Take 1 Uni vers carbonate-v 3-15 tablet by ity of itamin D3 00:00: mouth in [facility] 250 00 the Medical mg-3.125 morning. Branch mcg (125 unit) per tablet calcium 2022-0 Yes [id number] 250mg Take 1 Uni vers carbonate-v 3-15 tablet by ity of itamin D3 00:00: mouth in [place] [address] 00 the Medical mg-3.125 morning. Branch mcg (125 unit) per tablet calcium 2022-0 Yes [id number] 250mg Take 1 Uni vers carbonate-v 3-15 tablet by ity of itamin D3 00:00: mouth in [place] [address] 00 the Medical mg-3.125 morning. Branch mcg (125 unit) per tablet calcium 2022- Yes [id number] 250mg Take 1 Uni vers carbonate-v 3-15 tablet by ity of itamin D3 00:00: mouth in [place] [address] the Medical mg-3.125 morning. Branch mcg (125 unit) per tablet loperamide 2022- No [id number] 2mg Take 1 Univers 2 mg 3-15 -18 capsule by ity of capsule 00:00: 00:00 mouth in [place] 00 :00 the [facility] Branch and 1 capsule at noon and 1 capsule in the evening. midodrine 2022- No [id number] 10mg Take 1 U nivers 10 mg 3-15 03-15 tablet by ity of tablet 00:00: 00:00 mouth in [place] 00 :00 the [facility] morning Branch and 1 tablet at noon and 1 tablet in the evening. loperamide 2022- No [id number] 4mg Take 2 Univers 2 mg 3-15 03-15 capsules ity of capsule 00:00: 00:00 by mouth [place] 00 :00 in the Medical morning Branch and 2 capsules in the evening. psyllium 2022- No [id number] 1{packe Take 1 Univers husk 3.4 3-15 03-14 t} Packet by ity o f gram oral 00:00: 00:00 mouth in [facility] as powder 00 :00 the Medical packet morning. [place] loperamide 2022- No [id number] 2mg Take 1 Univers 2 mg 11-05 capsule by ity of capsule 00:00: 00:00 mouth [place] 00 :00 every Medical morning. [place] cyanocobala 2022- No [id number] 1000ug Take 1 mL Univers min 1,000 11-05 by ity of mcg/mL 00:00: 00:00 [place] injection 00 :00 lar route Medic al in the Branch morning. NaCl 0.9% 2022- No 1000mL at 200 Uni vers (NS) IV 11-04-14 mL/hr, IV ity of infusion 22:30: 22:11 Infusion, [place] 1,000 mL 00 :00 ONCE, 1 Medical dose, On [place] Thu11/04/22 at 1730, Routine sodium 0 Yes 650mg 650 mg, Univers bicarbonate 14 Oral, TID, it y of (ANTACID 21:45: First dose [place] (SODIUM 00 thu Medical BICARBONATE 11/04/22 at Br anch )) tablet 1645, 650 mg Until Discontinu ed, Routine loperamide Yes 2mg 2 mg, Univer s (IMODIUM 14 Oral, ity of A-D) 16:48: Q4HPRN, [place] capsule 2 01 Starting Medica l mg on Thu [place] 11/04/22 at 1148, Until Discontinu ed, Routine, Diarrhea NaCl 0.9% 2022- No 1000mL at 200 Uni vers (NS) IV 11-04-14 mL/hr, IV ity of infusion 16:45: 19:36 Infusion, [place] 1,000 mL 00 :00 ONCE, 1 Medical dose, On [place] Thu11/04/22 at 1145, Routine vitamin 2022-2022- No 1000ug 1,000 mcg, U nivers B-12 11-04-14 Oral, ity of (CYANOCOBAL 14:00: 16:02 DAILY, [...] , Starting Med ical (1/2NS) on Thu Branch 1,000 mL IV 11/04/22 at Solution 0730, Until Thu11/04/22 at 1059, 1,000 mL, at 200 mL/hr vitamin 3-0 Yes [id number] 2000ug Take 2 Un piyush B-12 1,000 3-14 tablets by ity of mcg tablet 00:00: mouth in [place] 00 the Medical morning. [place] vitamin 3-0 Yes [id number] 2000ug Take 2 Un piyush B-12 1,000 3-14 tablets by ity of mcg tablet 00:00: mouth in [place] 00 the Medical morning. [place] vitamin 2023-0 Yes [id number] 2000ug Take 2 Un piyush B-12 1,000 3-14 tablets by ity of mcg tablet 00:00: mouth in [place] 00 the Medical morning. [place] vitamin 2023-0 Yes [id number] 2000ug Take 2 Un piyush B-12 1,000 3-14 tablets by ity of mcg tablet 00:00: mouth in [place] 00 the Medical morning. [place] vitamin 2023-0 Yes [id number] 2000ug Take 2 Un piyush B-12 1,000 3-14 tablets by ity of mcg tablet 00:00: mouth in [place] 00 the Medical morning. [place] vitamin 2023-0 Yes [id number] 2000ug Take 2 Un piyush B-12 1,000 3-14 tablets by ity of mcg tablet 00:00: mouth in [place] 00 the Medical morning. Branch vitamin 2023-0 Yes [id number] 1999ug Take 2 Un pi[place]ush B-12 1,000 3-14 tablets by ity of mcg tablet 00:00: mouth in [place] 00 the Medical morning. Branch vitamin 2023-0 Yes [id number] 1999ug Take 2 Un piyush B-12 1,000 3-14 tablets by ity of mcg tablet 00:00: mouth in [place] 00 the Medical morning. Branch vitamin 2023-0 Yes [id number] 1999ug Take 2 Un [place] B-12 1,000 3-14 tablets by ity of mcg tablet 00:00: mouth in [place] 00 the Medical morning. Branch vitamin 2023-0 Yes [id number] 1999ug Take 2 Un [place] B-12 1,000 3-14 tablets by ity of mcg tablet 00:00: mouth in [place] 00 the Medical morning. Branch vitamin 2023-0 Yes [id number] 1999ug Take 2 Un [place] B-12 1,000 3-14 tablets by ity of mcg tablet 00:00: mouth in [place] 00 the Medical morning. Branch vitamin 2023-0 Yes [id number] 1999ug Take 2 Un [place] B-12 1,000 3-14 tablets by ity of mcg tablet 00:00: mouth in [place] 00 the Medical morning. Branch vitamin 2023-0 Yes [id number] 1999ug Take 2 Un [place] B-12 1,000 3-14 tablets by ity of mcg tablet 00:00: mouth in [place] 00 the Medical morning. Branch vitamin 2023-0 Yes [id number] 1999ug Take 2 Un [place] B-12 1,000 3-14 tablets by ity of mcg tablet 00:00: mouth in [place] 00 the Medical morning. Branch vitamin 2023-0 Yes [id number] 1999ug Take 2 Un [place] B-12 1,000 3-14 tablets by ity of mcg tablet 00:00: mouth in [place] 00 the Medical morning. Branch vitamin 2023-0 Yes [id number] 1999ug Take 2 Un [place] B-12 1,000 3-14 tablets by ity of mcg tablet 00:00: mouth in [place] 00 the Medical morning. Branch vitamin 2023-0 Yes [id number] 2000ug Take 2 Un [place] B-12 1,000 3-14 tablets by ity of mcg tablet 00:00: mouth in [place] 00 the Medical morning. Branch vitamin 2022-0 Yes [id number] 2000ug Take 2 Un [place]ush B-12 1,000 3-14 tablets by ity of mcg tablet 00:00: mouth in [place] 00 the Medical morning. Branch vitamin 2022-0 Yes [id number] 2000ug Take 2 Un [place] B-12 1,000 3-14 tablets by ity of mcg tablet 00:00: mouth in [place] 00 the Medical morning. Branch vitamin 3-0 Yes [id number] 2000ug Take 2 Un piyush B-12 1,000 3-14 tablets by ity of mcg tablet 00:00: mouth in [place] 00 the Medical morning. [place] midodrine 5 2022- No [id number] 5mg Take 1 Univers mg tablet 3-14 03-15 tablet by ity of 00:00: 00:00 mouth in [place] 00 :00 the Medical morning Branch and 1 tablet at noon and 1 tablet in the evening. loperamide 2022- No [id number] 2mg Take 1 Univers 2 mg 3-14 03-15 capsule by ity of capsule 00:00: 00:00 mouth in [place] 00 :00 the Medical morning Branch and 1 capsule in the evening. psyllium 2022- No [id number] 1{packe Take 1 [facility] 3.4 3-14 03-15 t} Packet by ity o f gram oral 00:00: 00:00 mouth in [place] powder 00 :00 the Medical packet morning Branch and 1 Packet in the evening. NaCl 0.9% 2022- No 1000mL at 200 Uni vers (NS) IV 3-13 03-14 mL/hr, IV ity of infusion 22:45: 04:00 Infusion, [place] 1,000 mL 00 :00 ONCE, 1 Medical dose, On Branch 11/03/22 at 1745, Routine NaCl 0.9% 2022-0 2022- No 1000mL at 150 Uni vers (NS) IV 3-13 03-14 mL/hr, IV ity of infusion 15:30: 19:36 Infusion, [place] 1,000 mL 00 :00 ONCE, 1 Medical dose, On Branch Thu11/03/22 at 1030, Routine calcium 2022-0 Yes 1{tbl} 250 mg (1 Uni vers carbonate-v 11-03 tablet), ity of itamin D3 14:00: Oral, [place] (OSCAL-250 00 DAILY, Medical + D) 250 First dose Branc h mg-3.125 on Thu mcg (125 11/03/22 at unit) per 0900, tablet 250 Until mg Discontinu ed, Routine KCL Yes 20meq 20 mEq, Univers (KLOR-CON 11-03 Oral, ity of M20) tablet 14:00: DAILY, [place] 20 mEq 00 First dose Medical on Thu Branch 11/03/22 at 0900, Until Discontinu ed, Routine psyllium 2022- No 1{packe 1 Packet, Univers husk 11-03 t} Oral, ity of (METAMUCIL 14:00: 19:07 DAILY, [place] (SUGAR 00 :06 First dose Medical FREE)) 3.4 on Thu [place] gram oral 11/03/22 at powder 0900, packet 1 Until Packet Discontinu ed, Routine loperamide 2022- No 2mg 2 mg, Unive rs (IMODIUM 11-03 Oral, ity of A-D) 12:52: 16:49 Q4HPRN, [place] capsule 2 54 :00 Starting Medica l mg on Thu11/03/22 at 0752, Until Thu11/04/22 at 1149, Routine, Diarrhea NaCl 0.9% 2022- No 500mL at 999 Univ ers (NS) bolus 11-03 mL/hr, 500 it y of infusion 06:30: 06:00 mL, IV [place] 500 mL 00 :00 Piggyback, Medical ONCE, 1 Branch dose, On Thu11/03/22 at 0130, STAT sodium 2022-2022- No IV Univers bicarbonate 11-02 Infusion, it y of 75 mEq in 23:30: 14:38 CONTINUOUS [place] NaCl 0.45% 00 :07 , Starting Med ical (1/2NS) on [place] Branch 1,000 mL IV 11/02/22 at Solution 1830, Until Thu11/03/22 at 0938, 1,000 mL, at 150 mL/hr enoxaparin Yes 30mg 30 mg, Unive rs (LOVENOX) 11-02 Subcutaneo ity of injection 22:00: us, DAILY, [place] 30 mg 00 First dose Medical (after Branch last modificati on) on [place] 11/02/22 at 1700, Until Discontinu ed, Routine lactated 2022- No 1000mL at 999 [facility] ers ringers IV 11-02-12 mL/hr, ity of infusion 19:00: 22:36 1,000 mL, [place] 1,000 mL 00 :15 IV Medical Infusion, Branch CONTINUOUS , Starting on [place] 11/02/22 at 1400, Until [place] 11/02/22 at 1736, Routine ondansetron Yes 4mg 4 mg, Slow Univers (ZOFRAN 11-02 IV Push, ity of (PF)) 17:04: Q6HPRN, [place] injection 4 54 Starting Medi mariusz mg on [facility] 11/02/22 at 1204, Until Discontinu ed, Routine, Nausea and Vomiting (N/V) acetaminoph Yes 650mg 650 mg, Un piyush en 12 Oral, ity of (TYLENOL) 17:04: Q6HPRN, [place] tablet 650 40 Starting Medic al mg on [facility] 11/02/22 at 1204, Until Discontinu ed, Routine, Pain (scale 1-3) lactated 2022- No 1000mL at 999 [facility] ers ringers IV 11-02-12 mL/hr, ity of infusion 14:45: 17:07 1,000 mL, [place] 1,000 mL 00 :00 Intravenou Medic al s, ONCE, 1 Branch dose, On [place] 11/02/22 at 0945, Routine NaCl 0.9% 2022- No 1000mL at 999 Uni vers (NS) bolus 11-02-12 mL/hr, ity of infusion 13:45: 14:35 1,000 mL, [place] 1,000 mL 00 :00 IV Medical Infusion, Branch ONCE, 1 dose, On [place] 11/02/22 at 0845, JOÃO iopamidol 2022- No [id number] 80mL 80 mL, Univers (ISOVUE 10-20 Intravenou [...] Medical Infusion, Branch ONCE, 1 dose, On 10/19/22 at 2030, [place] ondansetron 2022- No 4mg 4 mg, Slow Univers (ZOFRAN 10-20 IV Push, ity of (PF)) 01:45: 01:51 ONCE, 1 [place] injection 4 00 :00 dose, On Medi mariusz mg [place] Branch 10/19/22 at 1945, JOÃO morpHINE (4 2022- No 4mg 4 mg, Slow Univers mg/mL) 10-20 IV Push, ity of injection 4 01:45: 01:51 ONCE, 1 [place] mg 00 :00 dose, On Medical [place] Branch 10/19/22 at 1945, STAT ciprofloxac 2022-0 Yes [id number] 500mg Take 1 Univers in HCl 500 2-26 tablet by ity of mg tablet 00:00: mouth in the Medical morning Branch and 1 tablet in the evening. loperamide 2022-0 Yes [id number] 2mg Take 1 U nivers 2 mg 2-26 capsule by ity of capsule 00:00: mouth ([facility]) Medical times [place] daily as needed for Diarrhea. ciprofloxac 3-0 Yes [id number] 500mg Take 1 Univers in HCl 500 2-26 tablet by ity of mg tablet 00:00: mouth in the Medical morning Branch and 1 tablet in the evening. loperamide 3-0 Yes [id number] 2mg Take 1 U nivers 2 mg 2-26 capsule by ity of capsule 00:00: mouth 2 [place] (two) Medical times [place] daily as needed for Diarrhea. ciprofloxac 2023-0 Yes [id number] 500mg Take 1 Univers in HCl 500 2-26 tablet by ity of mg tablet 00:00: [place] 00 the Medical morning Branch and 1 tablet in the evening. loperamide 2023-0 Yes [id number] 2mg Take 1 U nivers 2 mg 2-26 capsule by ity of capsule 00:00: mouth 2 [place] 00 (two) Medical times Branch daily as needed for Diarrhea. ciprofloxac 3-0 Yes [id number] 500mg Take 1 Univers in HCl 500 2-26 tablet by ity of mg tablet 00:00: mouth in [place] 00 the Medical morning Branch and 1 tablet in the evening. loperamide 3-0 Yes [id number] 2mg Take 1 U nivers 2 mg 2-26 capsule by ity of capsule 00:00: mouth 2 00 (two) Medical times Branch daily as needed for Diarrhea. ciprofloxac 2022-0 3- No [id number] 500mg Take 1 Univers in HCl 500 2-26 03-12 tablet by ity of mg tablet 00:00: 00:00 mouth in [place] 00 :00 the Medical morning Branch and 1 tablet in the evening. loperamide 3-0 3- No [id number] 2mg Take 1 Univers 2 mg 2-26 03-12 capsule by ity of capsule 00:00: 00:00 mouth 2 [place] 00 :00 (two) Medical times Branch daily as needed for Diarrhea. loperamide 3-0 3- No [id number] 2mg Take 1 Univers 2 mg 2-26 02-26 capsule by ity of capsule 00:00: 00:00 mouth 2 [place] 00 :00 (two) Medical times Branch daily as needed for Diarrhea. ciprofloxac 3-0 3- No [id number] 500mg Take 1 Univers in HCl 500 2-26 02-26 tablet by ity of mg tablet 00:00: 00:00 mouth in [place] 00 :00 the Medical morning Branch and 1 tablet in the evening. Do all this for 7 days. ciprofloxac 3-0 3- No [id number] 500mg Take 1 Univers in HCl 500 2-26 02-26 tablet by ity of mg tablet 00:00: 00:00 mouth in [place] 00 :00 the Medical morning Branch and 1 tablet in the evening. loperamide 2022- No [id number] 2mg Take 1 Univers 2 mg 10-19 [...] [place] 40 mEq 00 :00 dose, On Thu Branch 05/21/22 at 1030, Routine magnesium 2021- [...] [place] 40 mEq 00 :00 dose, On Thu Branch 05/21/22 at 0945, Routine psyllium Yes 1{packe 1 Packet, U nivers husk 05-21 t} Oral, BID, ity of (METAMUCIL 01:00: First dose [place] (SUGAR 00 on Thu Medical FREE)) 3.4 05/20/22 at [facility] gram oral 1999, powder Until packet 1 Discontinu Packet ed, Routine loperamide 2021- No 2mg 2 mg, Unive rs (IMODIUM 05-21 Oral, BID, ity of A-D) 01:00: 19:34 First dose [place] capsule 2 00 :32 on Tue Medical mg 05/20/22 at Branch 1999, Until Discontinu ed, Routine ferrous Yes [id number] 325mg Take 1 Un piyush sulfate 325 9-28 tablet by ity of mg (65 mg 00:00: mouth in [place] iron) 00 the Medical tablet morning Branch and 1 tablet at noon and 1 tablet in the evening. Take with meals. loperamide Yes [id number] 2mg Take 1 U nivers 2 mg 9-28 capsule by ity of capsule 00:00: mouth 2 [place] (two) Medical times [place] daily as needed for Diarrhea (Increase ostomy output). ferrous Yes [id number] 325mg Take 1 Un piyush sulfate 325 9-28 tablet by ity of mg (65 mg 00:00: mouth in [place] iron) 00 the Medical tablet morning Branch and 1 tablet at noon and 1 tablet in the evening. Take with meals. loperamide Yes [id number] 2mg Take 1 U nivers 2 mg 9-28 capsule by ity of capsule 00:00: mouth 2 [place] 00 (two) Medical times [place] daily as needed for Diarrhea (Increase ostomy output). ferrous 0 Yes [id number] 325mg Take 1 Un pi[place]ush sulfate 325 9-28 tablet by ity of mg (65 mg 00:00: mouth in [place] iron) 00 the Medical tablet morning Branch and 1 tablet at noon and 1 tablet in the evening. Take with meals. loperamide Yes [id number] 2mg Take 1 U nivers 2 mg 9-28 capsule by ity of capsule 00:00: mouth 2 [place] 00 (two) Medical times Branch daily as needed for Diarrhea (Increase ostomy output). ferrous Yes [id number] 325mg Take 1 Un pi[place]ush sulfate 325 9-28 tablet by ity of mg (65 mg 00:00: [facility] the Medical tablet morning Branch and 1 tablet at noon and 1 tablet in the evening. Take with meals. loperamide Yes [id number] 2mg Take 1 U nivers 2 mg 9-28 capsule by ity of capsule 00:00: mouth 2 [place] (two) Medical times [place] daily as needed for Diarrhea (Increase ostomy output). ferrous Yes [id number] 325mg Take 1 Un piyush sulfate 325 9-28 tablet by ity of mg (65 mg 00:00: mouth in [facility] s iron) 00 the Medical tablet morning Branch and 1 tablet at noon and 1 tablet in the evening. Take with meals. loperamide Yes [id number] 2mg Take 1 U nivers 2 mg 9-28 capsule by ity of capsule 00:00: mouth 2 [place] [address] (two) Medical times [place] daily as needed for Diarrhea (Increase ostomy output). ferrous Yes [id number] 325mg Take 1 Un piyush sulfate 325 9-28 tablet by ity of mg (65 mg 00:00: mouth in [facility] 00 the Medical tablet morning Branch and 1 tablet at noon and 1 tablet in the evening. Take with meals. loperamide Yes [id number] 2mg Take 1 U nivers 2 mg 9-28 capsule by ity of capsule 00:00: mouth 2 [place] [address] (two) Medical times [place] daily as needed for Diarrhea (Increase ostomy output). ferrous 2022- No [id number] 325mg Take 1 U nivers sulfate 325 9-28 03-12 tablet by it y of mg (65 mg 00:00: 00:00 mouth in [place] iron) 00 :00 the Medical tablet morning Branch and 1 tablet at noon and 1 tablet in the evening. Take with meals. loperamide 0 2023- No [id number] 2mg Take 1 Univers 2 mg 9-28 03-12 capsule by ity of capsule 00:00: 00:00 mouth 2 [place] 00 :00 (two) Medical times Branch daily as needed for Diarrhea (Increase ostomy output). sodium 2021-0 2021- No [id number] 650mg Take 1 Uni vers bicarbonate 05-21 tablet by it y of 650 mg 00:00: 04:59 mouth in [place] tablet 00 :00 the Medical morning Branch and 1 tablet at noon and 1 tablet in the evening. Do all this for 7 days. KCL 20 mEq 2021-0 202- No [id number] 20meq Take 1 Univers tablet 05-21 tablet by ity of 00:00: 04:59 mouth in [place] 00 :00 the [facility] morning [place] for 7 days. sodium 2021-0 202- No [id number] 650mg Take 1 Uni vers bicarbonate 05-21 tablet by it y of 650 mg 00:00: 04:59 mouth in [place] tablet 00 :00 the Medical morning Branch and 1 tablet at noon and 1 tablet in the evening. Do all this for 7 days. KCL 20 mEq 2021-0 2021- No [id number] 20meq Take 1 Univers tablet 05-21 tablet by ity of 00:00: 04:59 mouth in [place] 00 :00 the [facility] for 7 days. KCL 2021-0 2021- No 40meq 40 mEq, Univers (KLOR-CON 05-20 Oral, ity of M20) tablet 21:00: 21:19 ONCE, 1 [place] 40 mEq 00 :00 dose, On [facility] 05/20/22 at 1600, Routine ferrous 2021-0 Yes 325mg 325 mg, Univer s sulfate 05-20 Oral, TID ity of tablet 325 17:00: MEALS, [place] mg 00 First dose Medical on [facility] 05/20/22 at 1200, Until Discontinu ed, Routine enoxaparin 0 Yes 30mg 30 mg, Unive rs (LOVENOX) 05-20 Subcutaneo ity of injection 14:00: us, DAILY, [place] 30 mg 00 First dose Medical on [facility] 05/20/22 at 0900, Until Discontinu ed, Routine [...] Thu05/20/22 at 0900, For 1 dose KCL 2021- [...] Nausea and Vomiting (N/V) iopamidol 2021- No [id number] 65mL 65 mL, Univers (ISOVUE 05-20 Intravenou ity o f 370-500 mL) 04:15: 04:15 s, ONCE, 1 [place] injection 00 :00 dose, On Medica l 65 mL Thu Branch 05/19/22 at 2315, Routine NaCl 0.9% 2021- No 1000mL at 999 Uni vers (NS) IV 05-20 mL/hr, ity of infusion 02:30: 07:11 Intravenou [place] 1,000 mL 00 :42 s, Medical CONTINUOUS Branch , Starting on Thu05/19/22 at 2130, Until Thu05/20/22 at 0211, Routine No known No No known Unive rs medications 05-20 medication it y of 01:04: s [address] dicyclomine 2021- No 20mg 20 mg, [...] medication it y of 00:06: s [address] No known 0 No No known Unive rs medications 04-10 medication it y of 00:06: s [address] magnesium 2021-0 2021- No 4g 4 [...] 1 last Branch tablet modificati on) on [place] 04/06/22 at 1200, Until Discontinu ed, Routine lactated 2021-2021- No 1000mL at 100 Univ ers ringers IV 04-06 08-15 mL/hr, ity of infusion 15:00: 20:30 1,000 mL, [place] 1,000 mL 00 :32 IV Medical Infusion, Branch CONTINUOUS , Starting on [place] 04/06/22 at 1000, Until Thu04/07/22 at 1530, Routine magnesium 2021-0 2021- No 6g 6 g, IV Univ ers sulfate 6 g 04-06 Piggyback, i ty of in NaCl 15:00: 18:10 ONCE, 1 [place] 0.9% (NS) 00 :00 dose, On Medica l [facility] 04/06/22 at 1000, Administer over 90 Minutes, 50 mL loperamide 2021-0 Yes 4mg 4 mg, Univer s (IMODIUM - Oral, BID, ity o f A-D) 14:00: First dose [place] capsule 4 00 on [place] Medical mg 04/06/22 at Branch 0900, Until Discontinu ed, Routine loperamide 2021-0 2- No 4mg 4 mg, Unive rs (IMODIUM 04-06 Oral, ity of A-D) 12:30: 14:00 TIDPRN, 8 [place] capsule 4 00 :56 doses, Medical mg Starting Branch on [place] 04/06/22 at 0730, Until [place] 04/06/22 at 0900, Routine, Diarrhea NaCl 0.9% 2021- No 1000mL at 999 Uni vers (NS) bolus 04-06 mL/hr, ity of infusion 12:30: 11:38 1,000 mL, [place] 1,000 mL 00 :51 IV Medical Piggyback, Branch ONCE, 1 dose, On [place] 04/06/22 at 0730, STAT magnesium 2021- No 2g 2 g, IV Univ ers sulfate in 04-06 Piggyback, it y of water 2 11:30: 11:37 Administer [place] gram/50 mL 00 :00 over 60 Medica l (4 %) Minutes, Branch infusion 2 ONCE, 1 g dose, On [place] 04/06/22 at 0630, Routine midodrine 2021- No 10mg 10 mg, Unive rs (PROAMATINE 04-06 Oral, ity of ) tablet 10 05:45: 05:16 ONCE, 1 [place] mg 00 :00 dose, On [facility] 04/06/22 at 0045, Routine NaCl 0.9% 2021- No 1000mL at 999 Uni vers (NS) bolus 04-06 mL/hr, ity of infusion 04:30: 03:39 1,000 mL, [place] 1,000 mL 00 :00 [facility], 1 dose, On 04/05/22 at 2330, STAT NaCl 0.9% 0 2021- No 1000mL at 999 Uni vers (NS) bolus 04-06-14 mL/hr, ity of infusion 03:30: 02:32 1,000 mL, [place] 1,000 mL 00 :34 IV Medical Piggyback, Branch ONCE, 1 dose, On 04/05/22 at 2230, STAT loperamide 2021-0 2021- [...] heparin 2021-2021- No 5000U 5,000 Univers (porcine) 8-11 08-14 Units, ity of injection 01:00: 13:56 [...] ity o f (PF)) 22:45: 21:59 Push, [place] injection 00 :00 ONCE, 1 Medical 50 mcg dose, On Branch Thu04/02/22 at 1745, Routine ondansetron Yes 4mg 4 mg, Slow Univers (ZOFRAN 8 IV Push, ity of (PF)) 22:06: Q6HPRN, [place] injection 4 55 Starting Medi mariusz mg on Thu Branch 04/02/22 at 1706, Until Discontinu ed, Routine, Nausea and Vomiting (N/V) acetaminoph Yes 650mg 650 mg, Un piyush en 810 Oral, ity of (TYLENOL) 22:06[facility] [place] tablet 650 46 Starting Medic al mg [...] 8-10 medication it y of 18:45: s [place] 13 Medical Branch ferrous 2021- No Altered 325mg QD Take 1 Compa ris sulfate 325 30 08-29 bowel tablet by H [facility]alth mg [...] QD Take 1 Compa ris sulfate 325 630 - bowel tablet by H ealth mg [...] intestinal 60 days ostomy ferrous 2021- No [id number] 325mg QD Take 1 [place] r[place] sulfate 325 6- tablet by He alth mg (65 mg 00:00: 23:59 mouth iron) 00 :00 daily for tablet 60 days ferrous 2021- No [id number] 325mg QD Take 1 [place]omin r[place] sulfate 325 02-20 tablet by He alth mg (65 mg 00:00: 23:59 mouth iron) 00 :00 daily for tablet 60 days ferrous No Altered 325mg QD Take 1 Compa ris sulfate 325 604-21 bowel tablet by H ealth mg (65 mg 00:00: 23:59 elimination mouth iron) 00 :00 due to daily for tablet intestinal 60 days ostomy ferrous No Altered 325mg QD Take 1 Compa ris sulfate 325 604-21 bowel tablet by H ealth mg (65 mg 00:00: 23:59 elimination mouth iron) 00 :00 due to daily for tablet intestinal 60 days ostomy ferrous No Altered 325mg QD Take 1 Compa ris sulfate 325 604-21 bowel tablet by H ealth mg (65 mg 00:00: 23:59 elimination mouth iron) 00 :00 due to daily for tablet intestinal 60 days ostomy ferrous No Altered 325mg QD Take 1 Compa ris sulfate 325 604-21 bowel tablet by [facility] (65 mg 00:00: 23:59 elimination mouth iron) 00 :00 due to daily for tablet intestinal 60 days ostomy ferrous No Altered 325mg QD Take 1 Compa ris sulfate 325 6-04-21 bowel tablet by [facility] (65 [...] intestinal ostomy loperamide 2021- No Altered 4mg Q.95201945 Take 2 Lynne (IMODIUM) 2 02-20 bowel [id number] capsules Health mg capsule 00:00: 23:59 elimination [...] intestinal ostomy loperamide 2021- No Altered 4mg Q.75466363 Take 2 Lynne (IMODIUM) 2 02-20 bowel [id number] capsules Health mg capsule 00:00: 23:59 elimination [...] intestinal ostomy loperamide 2021- No Altered 4mg Q.43262804 Take 2 Lynne (IMODIUM) 2 02-20 bowel [id number] capsules Health mg capsule 00:00: 23:59 elimination [...] intestinal ostomy loperamide 2021- No Altered 4mg Q.71430520 Take 2 Lynne (IMODIUM) 2 02-20 bowel [id number] capsules Health mg capsule 00:00: 23:59 elimination [...] (METAMUCIL) 02-20 bowel t} [facility] 6 gram PwPk 00:00: 23:59 elimination mouth 00 :00 due to intestinal ostomy loperamide 2021- No Altered 4mg Q.84284252 Take 2 Lynne (IMODIUM) 2 02-20 bowel [id number] capsules Health mg capsule 00:00: 23:59 elimination [...] intestinal ostomy loperamide 2021- No Altered 4mg Q.23549092 Take 2 Lynne (IMODIUM) 2 02-20 bowel [id number] capsules Health mg capsule 00:00: 23:59 elimination [...] intestinal ostomy loperamide 2021- No Altered 4mg Q.23695535 Take 2 Lynne (IMODIUM) 2 02-20 bowel [id number] capsules Health mg capsule 00:00: 23:59 elimination [...] intestinal ostomy loperamide 2021- No Altered 4mg Q.60229427 Take 2 Lynne (IMODIUM) 2 02-20 bowel [id number] capsules Health mg capsule 00:00: 23:59 elimination 3D by mouth 3 00 :00 due to times intestinal daily ostomy (before meals) for 30 days tamsulosin 2021- No Acute .4mg Take 1 Compa ris (FLOMAX) 02-20 kidney capsule by [facility] 0.4 mg 00:00: 23:59 injury mouth capsule 00 :00 every evening for 30 days psyllium 2021- No [id number] 1{packe Take 1 Lynne (METAMUCIL) 02-20 t} Packet by [facility] 6 gram PwPk 00:00: 23:59 mouth 00 :00 loperamide 2021- No [id number] 4mg Q.53789033 Take 2 Lynne (IMODIUM) 2 02-20 [id number] capsules Health mg capsule 00:00: 23:59 3D by mouth 3 00 :00 times daily (before meals) for 30 days tamsulosin 2021- No [id number] .4mg Take 1 Lynne (FLOMAX) 02-20 [id number] capsule by [facility] 0.4 mg 00:00: 23:59 mouth capsule 00 :00 every evening for 30 days psyllium 2021- No [id number] 1{packe Take 1 Lynne (METAMUCIL) 02-20 t} Packet by [facility] 6 gram PwPk 00:00: 23:59 mouth 00 :00 loperamide 2021- No [id number] 4mg Q.40869082 Take 2 Lynne (IMODIUM) 2 02-20 [id number] capsules Health mg capsule 00:00: 23:59 3D by mouth 3 00 :00 times daily (before meals) for 30 days tamsulosin 2021- No [id number] .4mg Take 1 Lynne (FLOMAX) 02-20 [id number] capsule by [facility] 0.4 mg 00:00: 23:59 mouth capsule 00 :00 every evening for 30 days psyllium 202- No Altered 1{packe Take 1 Lynne (METAMUCIL) 02-20 bowel t} Packet by [facility] 6 gram PwPk 00:00: 23:59 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 loperamide 2021- No Altered 4mg Q.18623021 Take 2 Lynne (IMODIUM) 2 02-20 bowel [id number] capsules Health mg capsule 00:00: 23:59 elimination [...] intestinal ostomy loperamide 2021- No Altered 4mg Q.56505888 Take 2 Lynne (IMODIUM) 2 02-20 bowel [id number] capsules Health mg capsule 00:00: 23:59 elimination [...] (METAMUCIL) 02-20 bowel t} [facility] 6 gram PwPk 00:00: 23:59 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 loperamide 2021- No Altered 4mg Q.24981873 Take 2 Lynne (IMODIUM) 2 02-20 bowel [id number] capsules Health mg capsule 00:00: 23:59 elimination [...] intestinal ostomy loperamide 2021- No Altered 4mg Q.48817011 Take 2 Lynne (IMODIUM) 2 02-20 bowel [id number] capsules Health mg capsule 00:00: 23:59 elimination [...] intestinal ostomy loperamide 2021- No Altered 4mg Q.54288165 Take 2 Lynne (IMODIUM) 2 02-20 bowel [id number] capsules Health mg capsule 00:00: 23:59 elimination [...] intestinal ostomy loperamide 2021- No Altered 4mg Q.95724157 Take 2 Lynne (IMODIUM) 2 02-20 bowel [id number] capsules Health mg capsule 00:00: 23:59 elimination [...] intestinal ostomy loperamide 2021- No Altered 4mg Q.85455339 Take 2 Lynne (IMODIUM) 2 02-20 bowel [id number] capsules Health mg capsule 00:00: 23:59 elimination [...] intestinal ostomy loperamide 2021- No Altered 4mg Q.56941158 Take 2 Lynne (IMODIUM) 2 02-20 bowel [id number] capsules Health mg capsule 00:00: 23:59 elimination [...] intestinal ostomy loperamide 2021- No Altered 4mg Q.35525758 Take 2 Lynne (IMODIUM) 2 02-20-30 bowel [id number] capsules Health mg capsule 00:00: 23:59 elimination [...] intestinal ostomy loperamide 2021- No Altered 4mg Q.96772914 Take 2 Lynne (IMODIUM) 2 02-20-30 bowel [id number] capsules Health mg capsule 00:00: 23:59 elimination [...] intestinal ostomy loperamide 2021- No Altered 4mg Q.73098520 Take 2 Lynne (IMODIUM) 2 02-20-30 bowel [id number] capsules Health mg capsule 00:00: 23:59 elimination [...] intestinal ostomy loperamide 2021- No Altered 4mg Q.44224381 Take 2 Lynne (IMODIUM) 2 02-20-30 bowel [id number] capsules Health mg capsule 00:00: 23:59 elimination [...] intestinal ostomy loperamide 2021- No Altered 4mg Q.77573019 Take 2 Lynne (IMODIUM) 2 02-20-30 bowel [id number] capsules Health mg capsule 00:00: 23:59 elimination 3D by mouth 3 00 :00 due to times intestinal daily ostomy (before meals) for 30 days tamsulosin 2021- No Acute .4mg Take 1 Comap ris (FLOMAX) 02-2030 kidney capsule by [facility] 0.4 mg 00:00: 23:59 injury mouth capsule 00 :00 every evening for 30 days psyllium 2021- No Altered 1{packe Take 1 Lynne (METAMUCIL) 02-20 07-30 bowel t} Packet by [facility] 6 gram PwPk 00:00: 23:59 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 loperamide 2021- No Altered 4mg Q.37361133 Take 2 Lynne (IMODIUM) 2 02-20-30 bowel [id number] capsules Health mg capsule 00:00: 23:59 elimination [...] intestinal ostomy loperamide 2021- No Altered 4mg Q.56389618 Take 2 Lynne (IMODIUM) 2 02-2030 bowel [id number] capsules Health mg capsule 00:00: 23:59 elimination [...] intestinal ostomy loperamide 2021- No Altered 4mg Q.75675335 Take 2 Lynne (IMODIUM) 2 02-20-30 bowel [id number] capsules Health mg capsule 00:00: 23:59 elimination 3D by mouth 3 00 :00 due to times intestinal daily ostomy (before meals) for 30 days tamsulosin 2021- No Acute .4mg Take 1 Compa ris (FLOMAX) 02-20-30 kidney capsule by [facility] 0.4 mg 00:00: 23:59 injury mouth capsule 00 :00 every evening for 30 days enoxaparin No 40mg 40 mg Harri s (LOVENOX) [...] dose on Thu03/20/22 at 0900, STAT ascorbic No 250mg QD 250 mg Harri s acid 02-19 (3.53 Health (vitamin C) 09:00: 13:55 mg/kg), tablet 250 00 :54 Oral, mg DAILY, 30 doses, First dose on Thu02/19/22 at 0900, Last dose on Thu03/20/22 at 0900, STAT loperamide 2021- No 4mg Q.36922268 4 mg Lynne (IMODIUM) 02-19 [id number] (0.0565 Health capsule 4 07:30: 13:55 3D [...] .4mg 0.4 mg Alex is (FLOMAX) 02-18 (0.04142 Health capsule 0.4 21:00: 13:55 mg/kg), mg [...] s, CONTINUOUS , Starting on Thu02/18/22 at 2024, Until Thu02/20/22 at 1122 acetaminoph 2021- No 650mg 650 mg Momin rris en 02-18 (9.18 Health (TYLENOL) 20:23: 13:55 mg/kg), tablet 650 55 :54 Oral, mg EVERY 6 HOURS PRN, Starting on Thu02/18/22 at 2022, Until Thu02/20/22 at 1355, Mild pain (1-3), Headache, STAT lactated 0 2021- No Intravenou Momin rris Ringers 02-18 s, STAT Health 1,000 mL 19:07: 21:00 infusion - 00 :00 bolus lactated 2021-0 2021- No Intravenou Momin rris Ringers 02-18 06-28 s, STAT Health 1,000 mL 14:11: 19:00 infusion - 00 :00 bolus nutritional 2021-0 Yes Malnutritio 1{packa Take 1 [...] liquid 00 times daily nutritional 2021-0 Yes [id number] 1{packa Take 1 Lynne supplemment 6-21 4102 ge} Package by [facility] (BOOST) 00:00: mouth 3 oral liquid 00 times daily nutritional 2021-0 Yes [id number] 1{packa Take 1 Lynne supplemment 6-21 4102 ge} Package by [facility] (BOOST) 00:00: mouth 3 oral liquid 00 times daily nutritional 2021-0 Yes [id number] 1{packa Take 1 Lynne supplemment 6-21 4102 [...] 6- n due to ge} Package by [facility] (BOOST) 00:00: starvation mouth 3 oral liquid 00 times daily psyllium 2021- No Altered 1{packe Take 1 Lynne (METAMUCIL) 02-11 06-30 bowel t} Packet by [facility] 6 gram PwPk 00:00: 00:00 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 psyllium 2021- No Altered 1{packe Take 1 Lynne (METAMUCIL) 02-11 06-30 bowel t} Packet by [facility] 6 [...] due to intestinal ostomy psyllium 2021- No [id number] 1{packe Take 1 Lynne (METAMUCIL) 02-1130 t} Packet by [facility] 6 gram PwPk 00:00: 00:00 mouth 00 :00 psyllium 2021- No Altered 1{packe Take 1 Lynne (METAMUCIL) 02-1130 bowel t} Packet by [facility] 6 gram Pwk 00:00: 00:00 elimination mouth 00 :00 due to intestinal ostomy psyllium 2021- No Altered 1{packe Take 1 Lynne (METAMUCIL) 02-1130 bowel t} Packet by [facility] 6 gram PwPk 00:00: 00:00 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 psyllium 2021- No Altered 1{packe Take 1 Lynne (METAMUCIL) 02-1130 bowel t} Packet by [facility] 6 gram PwPk 00:00: 00:00 elimination mouth 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 psyllium 2021- No Altered 1{packe Take 1 Lynne (METAMUCIL) 02-1130 bowel t} Packet by [facility] 6 gram PwPk 00:00: 00:00 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 psyllium 2021- No Altered 1{packe Take 1 Lynne (METAMUCIL) 02-1130 bowel t} Packet by [facility] 6 gram PwPk 00:00: 00:00 elimination mouth 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 psyllium 2021- No Altered 1{packe Take 1 Lynne (METAMUCIL) 02-1130 bowel t} Packet by [facility] 6 gram PwPk 00:00: 00:00 elimination mouth 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 psyllium 2021-0 2021- No Altered 1{packe Take 1 Lynne (METAMUCIL) 02-11-30 bowel t} Packet by [facility] 6 gram PwPk 00:00: 00:00 elimination [...] 00 :00 due to intestinal ostomy psyllium 20222021- No Altered 1{packe Take 1 Lynne (METAMUCIL) 02-11 bowel t} Packet by [facility] 6 gram PwPk 00:00: 00:00 elimination mouth 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4 mg Alex is (FLOMAX) 02-07 (0.04905 Health capsule 0.4 21:00: 15:22 mg/kg), mg 00 :37 Oral, EVERY EVENING, 30 doses, First dose on Thu02/07/22 at 2100, Last dose on Thu03/08/22 at 2100, STAT lactated 2021- No at 125 Lynne Ringers 02-0718 mL/hr, Health infusion 18:42: 10:28 Intravenou 00 :44 s, CONTINUOUS , Starting on Thu02/07/22 at 1842, Until Thu02/08/22 at 1028 psyllium 2021- No 1{packe Q.54501447 1 Packet, [facility] (METAMUCIL) 02-07 t} [id number] Oral, 3 Health oral packet 18:00: 15:22 3D TIMES 1 Packet 00 :37 DAILY BEFORE MEALS, 90 doses, First dose on Thu02/07/22 at 1800, Last dose on Thu03/09/22 at 1130, STAT loperamide 2021- No 4mg Q.50975429 4 mg Lynne (IMODIUM) 02-07 [id number] (0.0533 Health capsule 4 17:44: 15:22 3D mg/kg), mg 00 :37 Oral, 3 TIMES DAILY BEFORE MEALS, 90 doses, First dose on Thu02/07/22 at 1744, Last dose on Thu03/09/22 at 1130, STAT ondansetron No 4mg 4 mg Harri s (ZOFRAN) [...] rris acid, 5- 07-30 bowel tablet by [facility] vitamin C, 00:00: 23:59 elimination [...] rris acid, -23 03-30 bowel tablet by [facility] vitamin C, 00:00: 23:59 elimination [...] intestinal 60 days ostomy ascorbic 2021- No [id number] 250mg QD Take 1 H arris acid, 5- 07-30 tablet by [facility] vitamin C, 00:00: 23:59 mouth 250 mg 00 :00 daily for tablet 60 days magnesium 2021- No [id number] 800mg Q.5D Take 2 Lynne oxide 5-31 07-30 tablets by [facility] ([facility]) 00:00: 23:59 mouth 2 400 mg 00 :00 times (241.3 mg daily for magnesium) 60 days tablet multivitami 2021- No [id number] 1{tbl} QD Take 1 Lynne n with 5- 07-30 tablet by [facility] folic acid 00:00: 23:59 mouth (THERA) 400 00 :00 daily for mcg tablet 60 days ascorbic 2021- No [id number] 250mg QD Take 1 H arris acid, 5- 07-30 tablet by [facility] vitamin C, 00:00: 23:59 mouth 250 mg 00 :00 daily for tablet 60 days magnesium 2021- No [id number] 800mg Q.5D Take 2 Lnyne oxide 5- 07-30 tablets by [facility] ([facility]) 00:00: 23:59 mouth 2 400 mg 00 :00 times (241.3 mg daily for magnesium) 60 days tablet multivitami 2021- No [id number] 1{tbl} QD Take 1 Lynne n with 5- 07-30 tablet by [facility] folic acid 00:00: 23:59 mouth (THERA) 400 00 :00 daily for mcg tablet 60 days ascorbic 2021- No [id number] 250mg QD Take 1 H arris acid, 5- 07-30 tablet by [facility] vitamin C, 00:00: 23:59 mouth 250 mg 00 :00 daily for tablet 60 days magnesium 2021- No [id number] 800mg Q.5D Take 2 Lynne oxide 5-31 07-30 tablets by Health (MAG-OX) 00:00: 23:59 mouth 2 400 mg 00 :00 times (241.3 mg daily for magnesium) 60 days tablet multivitami 2021- No [id number] 1{tbl} QD Take 1 Lynne n with 01-21-30 tablet by Health folic acid 00:00: 23:59 mouth (THERA) 400 00 :00 daily for mcg tablet 60 days ascorbic 2021- No Altered 250mg QD Take 1 Momin rris acid, 01-21-30 bowel tablet by [facility] vitamin C, 00:00: 23:59 elimination mouth 250 mg 00 :00 due to daily for tablet intestinal 60 days ostomy magnesium 2021- No Altered 800mg Q.5D Take 2 H arris oxide 01-21-30 bowel tablets by [facility] ([facility]) 00:00: 23:59 elimination mouth 2 400 mg [...] arris oxide 5-23 03-30 bowel tablets by [facility] (MAG-OX) 00:00: 23:59 elimination mouth 2 400 mg 00 :00 due to times (241.3 mg intestinal daily for magnesium) ostomy 60 days tablet multivitami 2021- No Altered 1{tbl} QD Take 1 Lynne n with 01-21-30 bowel tablet by [facility] folic acid 00:00: 23:59 elimination mouth (THERA) 400 00 :00 due to daily for mcg tablet intestinal 60 days ostomy ascorbic 2021- No Altered 250mg QD Take 1 Momin rris acid, 01-21-30 bowel tablet by [facility] vitamin C, 00:00: 23:59 elimination mouth 250 mg 00 :00 due to daily for tablet intestinal 60 days ostomy magnesium 2021- No Altered 800mg Q.5D Take 2 H arris oxide 01-21-30 bowel tablets by [facility] (MAG-OX) 00:00: 23:59 elimination mouth 2 400 mg 00 :00 due to times (241.3 mg intestinal daily for magnesium) ostomy 60 days tablet multivitami 2021- No Altered 1{tbl} QD Take 1 Lynne n with 01-21-30 bowel tablet by [facility] folic acid 00:00: 23:59 elimination mouth (THERA) 400 00 :00 due to daily for mcg tablet intestinal 60 days ostomy ascorbic 2021- No Altered 250mg QD Take 1 Momin rris acid, 01-21-30 bowel tablet by [facility] vitamin C, 00:00: 23:59 elimination mouth 250 mg 00 :00 due to daily for tablet intestinal 60 days ostomy magnesium 2021- No Altered 800mg Q.5D Take 2 H arris oxide 5-23 03-30 bowel tablets by [facility] (MAG-OX) 00:00: 23:59 elimination mouth 2 400 mg 00 :00 due to times (241.3 mg intestinal daily for magnesium) ostomy 60 days tablet multivitami 2021- No Altered 1{tbl} QD Take 1 Lynne n with 5-23 03-30 bowel tablet by [facility] folic acid 00:00: 23:59 elimination mouth (THERA) 400 00 :00 due to daily for mcg tablet intestinal 60 days ostomy ascorbic 2021- No Altered 250mg QD Take 1 Momin rris acid, 01-21-30 bowel tablet by [facility] vitamin C, 00:00: 23:59 elimination mouth 250 mg 00 :00 due to daily for tablet intestinal 60 days ostomy magnesium 2021- No Altered 800mg Q.5D Take 2 H arris oxide 01-21-30 bowel tablets by [facility] (MAG-OX) 00:00: 23:59 elimination mouth 2 400 mg 00 :00 due to times (241.3 mg intestinal daily for magnesium) ostomy 60 days tablet multivitami 2021- No Altered 1{tbl} QD Take 1 Lynne n with 01-21 bowel tablet by [facility] folic acid 00:00: 23:59 elimination mouth (THERA) 400 00 :00 due to daily for mcg tablet intestinal 60 days ostomy ascorbic 2021- No Altered 250mg QD Take 1 Momin rris acid, 01-21 bowel tablet by [facility] vitamin C, 00:00: 23:59 elimination mouth 250 mg 00 :00 due to daily for tablet intestinal 60 days ostomy magnesium 2021- No Altered 800mg Q.5D Take 2 H arris oxide 01-2130 bowel tablets by [facility] (MAG-OX) 00:00: 23:59 elimination mouth 2 400 mg 00 :00 due to times (241.3 mg intestinal daily for magnesium) ostomy 60 days tablet multivitami 2021- No Altered 1{tbl} QD Take 1 Lynne n with 01-2130 bowel tablet by [facility] folic acid 00:00: 23:59 elimination mouth (THERA) 400 00 :00 due to daily for mcg tablet intestinal 60 days ostomy ascorbic 2021- No Altered 250mg QD Take 1 Momin rris acid, 01-21-30 bowel tablet by [facility] vitamin C, 00:00: 23:59 elimination mouth 250 mg 00 :00 due to daily for tablet intestinal 60 days ostomy magnesium 2021- No Altered 800mg Q.5D Take 2 H arris oxide -23 03-30 bowel tablets by [facility] (MAG-OX) 00:00: 23:59 elimination mouth 2 400 mg 00 :00 due to times (241.3 mg intestinal daily for magnesium) ostomy 60 days tablet multivitami 2021- No Altered 1{tbl} QD Take 1 Lynne n with 01-21-30 bowel tablet by [facility] folic acid 00:00: 23:59 elimination mouth (THERA) 400 00 :00 due to daily for mcg tablet intestinal 60 days ostomy ascorbic 2021- No Altered 250mg QD Take 1 Momin rris acid, 01-21 bowel tablet by [facility] vitamin C, 00:00: 23:59 elimination mouth 250 mg 00 :00 due to daily for tablet intestinal 60 days ostomy magnesium 2021- No Altered 800mg Q.5D Take 2 H arris oxide 01-21 bowel tablets by [facility] ([facility]) 00:00: 23:59 elimination mouth 2 400 mg 00 :00 due to times (241.3 mg intestinal daily for magnesium) ostomy 60 days tablet multivitami 2021- No Altered 1{tbl} QD Take 1 Lynne n with 01-21 bowel tablet by [facility] folic acid 00:00: 23:59 elimination mouth (THERA) 400 00 :00 due to daily for mcg tablet intestinal 60 days ostomy ascorbic 2021- No Altered 250mg QD Take 1 Momin rris acid, 01-21 bowel tablet by [facility] vitamin C, 00:00: 23:59 elimination mouth 250 mg 00 :00 due to daily for tablet intestinal 60 days ostomy magnesium 2021- No Altered 800mg Q.5D Take 2 H arris oxide 01-2130 bowel tablets by [facility] (MAG-OX) 00:00: 23:59 elimination mouth 2 400 mg 00 :00 due to times (241.3 mg intestinal daily for magnesium) ostomy 60 days tablet multivitami 2021- No Altered 1{tbl} QD Take 1 Lynne n with 01-21-30 bowel tablet by [facility] folic acid 00:00: 23:59 elimination mouth (THERA) 400 00 :00 due to daily for mcg tablet intestinal 60 days ostomy ascorbic 2021- No Altered 250mg QD Take 1 Momin rris acid, 5-31 07-30 bowel tablet by [facility] vitamin C, 00:00: 23:59 elimination mouth 250 mg 00 :00 due to daily for tablet intestinal 60 days ostomy magnesium 2021- No Altered 800mg Q.5D Take 2 H arris oxide 01-21-30 bowel tablets by [facility] (MAG-OX) 00:00: 23:59 elimination mouth 2 400 mg 00 :00 due to times (241.3 mg intestinal daily for magnesium) ostomy 60 days tablet multivitami 2021- No Altered 1{tbl} QD Take 1 Lynne n with 01-21-30 bowel tablet by [facility] folic acid 00:00: 23:59 elimination mouth (THERA) 400 00 :00 due to daily for mcg tablet intestinal 60 days ostomy ascorbic 2021- No Altered 250mg QD Take 1 Momin rris acid, 01-21 bowel tablet by [facility] vitamin C, 00:00: 23:59 elimination mouth 250 mg 00 :00 due to daily for tablet intestinal 60 days ostomy magnesium 2021- No Altered 800mg Q.5D Take 2 H arris oxide 01-21-30 bowel tablets by [facility] (MAG-OX) 00:00: 23:59 elimination mouth 2 400 mg 00 :00 due to times (241.3 mg intestinal daily for magnesium) ostomy 60 days tablet multivitami 2021- No Altered 1{tbl} QD Take 1 Lynne n with 01-2130 bowel tablet by [facility] folic acid 00:00: 23:59 elimination mouth (THERA) 400 00 :00 due to daily for mcg tablet intestinal 60 days ostomy ascorbic 2021- No Altered 250mg QD Take 1 Momin rris acid, 01-2130 bowel tablet by [facility] vitamin C, 00:00: 23:59 elimination mouth 250 mg 00 :00 due to daily for tablet intestinal 60 days ostomy magnesium 2021- No Altered 800mg Q.5D Take 2 H arris oxide -23 03-30 bowel tablets by [facility] (MAG-OX) 00:00: 23:59 elimination mouth [...] Momin rris acid, 01-21-30 bowel tablet by [facility] vitamin C, 00:00: 23:59 elimination mouth 250 mg 00 :00 due to daily for tablet intestinal 60 days ostomy magnesium 2021- No Altered 800mg Q.5D Take 2 H arris oxide 01-21-30 bowel tablets by [facility] (MAG-OX) 00:00: 23:59 elimination mouth 2 400 mg 00 :00 due to times (241.3 mg intestinal daily for magnesium) ostomy 60 days tablet multivitami 2021- No Altered 1{tbl} QD Take 1 Lynne n with 01-2130 bowel tablet by [facility] folic acid 00:00: 23:59 elimination mouth (THERA) 400 00 :00 due to daily for mcg tablet intestinal 60 days ostomy ascorbic 2021- No Altered 250mg QD Take 1 Momin rris acid, 01-2130 bowel tablet by [facility] vitamin C, 00:00: 23:59 elimination mouth 250 mg 00 :00 due to daily for tablet intestinal 60 days ostomy magnesium 2021- No Altered 800mg Q.5D Take 2 H arris oxide 01-21-30 bowel tablets by [facility] (MAG-OX) 00:00: 23:59 elimination mouth 2 400 [...] Momin rris acid, 01-21-30 bowel tablet by [facility] vitamin C, 00:00: 23:59 elimination mouth 250 mg 00 :00 due to daily for tablet intestinal 60 days ostomy magnesium 2021- No Altered 800mg Q.5D Take 2 H arris oxide 01-21 bowel tablets by [facility] (MAG-OX) 00:00: 23:59 elimination mouth 2 400 mg 00 :00 due to times (241.3 mg intestinal daily for magnesium) ostomy 60 days tablet multivitami 2021- No Altered 1{tbl} QD Take 1 Lynne n with 01-21 bowel tablet by [facility] folic acid 00:00: 23:59 elimination [...] 60 days ostomy loperamide No Altered 4mg Q.45977289 Take 2 Lynne (IMODIUM) 2 01-21 bowel [id number] capsules Health mg capsule 00:00: 00:00 elimination [...] days ostomy loperamide 2021- No Altered 4mg Q.06410276 Take 2 Lynne (IMODIUM) 2 01-21 bowel [id number] capsules Health mg capsule 00:00: 00:00 elimination [...] days ostomy loperamide 2021- No Altered 4mg Q.31337722 Take 2 Lynne (IMODIUM) 2 01-21-30 bowel [id number] capsules Health mg capsule 00:00: 00:00 elimination [...] days ostomy loperamide 2021- No Altered 4mg Q.68485636 Take 2 Lynne (IMODIUM) 2 --30 bowel [id number] capsules Health mg capsule 00:00: 00:00 elimination [...] days ostomy loperamide 2021- No Altered 4mg Q.10833109 Take 2 Lynne (IMODIUM) 2 --30 bowel [id number] capsules Health mg capsule 00:00: 00:00 elimination [...] days ostomy loperamide 2021- No Altered 4mg Q.60280729 Take 2 Lynne (IMODIUM) 2 --30 bowel [id number] capsules Health mg capsule 00:00: 00:00 elimination [...] days ostomy loperamide 2021- No Altered 4mg Q.51339839 Take 2 Lynne (IMODIUM) 2 01-21-30 bowel [id number] capsules Health mg capsule 00:00: 00:00 elimination [...] 60 days ostomy loperamide No Altered 4mg Q.58454033 Take 2 Lynne (IMODIUM) 2 01-21-30 bowel [id number] capsules [facility] mg capsule 00:00: 00:00 elimination 3D by mouth 3 00 :00 due to times intestinal daily ostomy (before meals) for 30 days tamsulosin 2021- No [id number] .4mg Take 1 Lynne (FLOMAX) 01-21 [id number] capsule by [facility] 0.4 mg 00:00: 00:00 mouth capsule 00 :00 every evening for 30 days ferrous 2021- No [id number] 325mg QD Take 1 Momin rris sulfate 325 01-21 tablet by [facility] mg (65 mg 00:00: 00:00 mouth iron) 00 :00 daily for tablet 60 days loperamide 2021- No [id number] 4mg Q.41648524 Take 2 Lynne (IMODIUM) 2 01-21 [id number] capsules Health mg capsule 00:00: 00:00 3D [...] days ostomy loperamide 2021- No Altered 4mg Q.[id number] Take 2 Lynne (IMODIUM) 2 01-21 bowel [id number] capsules Health mg capsule 00:00: 00:00 elimination [...] 60 days ostomy loperamide No Altered 4mg Q.07254093 Take 2 Lynne (IMODIUM) 2 01-21-30 bowel [id number] capsules Health mg capsule 00:00: 00:00 elimination [...] days ostomy loperamide 2021- No Altered 4mg Q.69493303 Take 2 Lynne (IMODIUM) 2 - 06-30 bowel [id number] capsules Health mg capsule 00:00: 00:00 elimination [...] days ostomy loperamide 2021- No Altered 4mg Q.77084218 Take 2 [facility] (IMODIUM) 2 01-21-30 bowel [id number] capsules Health mg capsule 00:00: 00:00 elimination [...] days ostomy loperamide 2021- No Altered 4mg Q.17700776 Take 2 Lynne (IMODIUM) 2 01-21-30 bowel [id number] capsules Health mg capsule 00:00: 00:00 elimination [...] days ostomy loperamide 2021- No Altered 4mg Q.53915756 Take 2 Lyn[facility] (IMODIUM) 2 01-21-30 bowel [id number] capsules Health mg capsule 00:00: 00:00 elimination [...] days ostomy loperamide 2021- No Altered 4mg Q.15653549 Take 2 [facility] (IMODIUM) 2 - 06-30 bowel [id number] capsules Health mg capsule 00:00: 00:00 elimination [...] days ostomy loperamide 2021- No Altered 4mg Q.52351109 Take 2 [place] (IMODIUM) 2 01-21-30 bowel [id number] capsules Health mg capsule 00:00: 00:00 elimination [...] days ostomy loperamide 2021- No Altered 4mg Q.18074167 Take 2 [facility] (IMODIUM) 2 - 06-30 bowel [id number] capsules Health mg capsule 00:00: 00:00 elimination [...] days ostomy loperamide 2021- No Altered 4mg Q.45276343 Take 2 [place] (IMODIUM) 2 --30 bowel [id number] capsules Health mg capsule 00:00: 00:00 elimination [...] days ostomy loperamide 2021- No Altered 4mg Q.45148166 Take 2 [place] (IMODIUM) 2 --30 bowel [id number] capsules Health mg capsule 00:00: 00:00 elimination [...] days ostomy loperamide 2021- No Altered 4mg Q.44367705 Take 2 [place] (IMODIUM) 2 01-21-30 bowel [id number] capsules Health mg capsule 00:00: 00:00 elimination [...] days ostomy loperamide 2021- No Altered 4mg Q.48308941 Take 2 [place] (IMODIUM) 2 01-21- bowel [id number] capsules Health mg capsule 00:00: 00:00 elimination [...] days ostomy loperamide 2021- No Altered 4mg Q.31981852 Take 2 [place] (IMODIUM) 2 01-21-30 bowel [id number] capsules Health mg capsule 00:00: 00:00 elimination [...] days ostomy loperamide 2021- No Altered 4mg Q.68764900 Take 2 [place] (IMODIUM) 2 01-21 bowel [id number] capsules Health mg capsule 00:00: 00:00 elimination [...] days ostomy loperamide 2021- No Altered 4mg Q.86189288 Take 2 [place] (IMODIUM) 2 01-21 bowel [id number] capsules Health mg capsule 00:00: 00:00 elimination 3D by mouth 3 00 :00 due to times intestinal daily ostomy (before meals) for 30 days psyllium 2021- No Altered 1{packe Q.89595880 Take 1 [place] (METAMUCIL) 01-21 bowel t} [id number] Packet by Health 6 gram PwPk 00:00: 00:00 elimination 3D mouth 3 00 :00 due to times intestinal daily ostomy (before meals) for 90 days psyllium 2021- No Altered 1{packe Q.56469563 Take 1 [place] (METAMUCIL) 01-21 bowel t} [id number] Packet by [facility] 6 gram PwPk 00:00: 00:00 elimination 3D mouth 3 00 :00 due to times intestinal daily ostomy (before meals) for 90 days psyllium 2022-0 2022- No Altered 1{packe Q.93952862 Take 1 [place] (METAMUCIL) 01-21 bowel t} [id number] Packet by [facility] 6 gram PwPk 00:00: 00:00 elimination 3D mouth 3 00 :00 due to times intestinal daily ostomy (before meals) for 90 days psyllium 2021- No Altered 1{packe Q.64273379 Take 1 [place] (METAMUCIL) 01-21 bowel t} [id number] Packet by [facility] 6 gram PwPk 00:00: 00:00 elimination 3D mouth 3 00 :00 due to times intestinal daily ostomy (before meals) for 90 days psyllium 2021- No Altered 1{packe Q.84115668 Take 1 [place] (METAMUCIL) 01-21 bowel t} [id number] Packet by [facility] 6 gram PwPk 00:00: 00:00 elimination 3D mouth 3 00 :00 due to times intestinal daily ostomy (before meals) for 90 days psyllium 2021- No Altered 1{packe Q.87454177 Take 1 [place] (METAMUCIL) 01-21 bowel t} [id number] Packet by [facility] 6 gram PwPk 00:00: 00:00 elimination 3D mouth 3 00 :00 due to times intestinal daily ostomy (before meals) for 90 days psyllium 2021- No Altered 1{packe Q.43667374 Take 1 [place] (METAMUCIL) 01-21 bowel t} [id number] Packet by [facility] 6 gram PwPk 00:00: 00:00 elimination 3D mouth 3 00 :00 due to times intestinal daily ostomy (before meals) for 90 days psyllium 2021- No Altered 1{packe Q.34300219 Take 1 [place] (METAMUCIL) 01-21 bowel t} [id number] Packet by [facility] 6 gram PwPk 00:00: 00:00 elimination 3D mouth 3 00 :00 due to times intestinal daily ostomy (before meals) for 90 days psyllium 2021- No Altered 1{packe Q.47923954 Take 1 [place] (METAMUCIL) 01-21 bowel t} [id number] Packet by [facility] 6 gram PwPk 00:00: 00:00 elimination 3D mouth 3 00 :00 due to times intestinal daily ostomy (before meals) for 90 days psyllium 2021- No Altered 1{packe Q.91727512 Take 1 [place] (METAMUCIL) 01-21 bowel t} [id number] Packet by [facility] 6 gram PwPk 00:00: 00:00 elimination 3D mouth 3 00 :00 due to times intestinal daily ostomy (before meals) for 90 days psyllium 2021- No Altered 1{packe Q.80061195 Take 1 [place] (METAMUCIL) 01-21 bowel t} [id number] Packet by [facility] 6 gram PwPk 00:00: 00:00 elimination 3D mouth 3 00 :00 due to times intestinal daily ostomy (before meals) for 90 days psyllium 2021- No Altered 1{packe Q.85911648 Take 1 [place] (METAMUCIL) 01-21 bowel t} [id number] Packet by [facility] 6 gram PwPk 00:00: 00:00 elimination 3D mouth 3 00 :00 due to times intestinal daily ostomy (before meals) for 90 days psyllium 2021- No Altered 1{packe Q.15638680 Take 1 [place] (METAMUCIL) 01-21 bowel t} [id number] Packet by [facility] 6 gram PwPk 00:00: 00:00 elimination 3D mouth 3 00 :00 due to times intestinal daily ostomy (before meals) for 90 days psyllium 2021- No Altered 1{packe Q.86649986 Take 1 [place] (METAMUCIL) 01-21 bowel t} [id number] Packet by [facility] 6 gram PwPk 00:00: 00:00 elimination 3D mouth 3 00 :00 due to times intestinal daily ostomy (before meals) for 90 days psyllium 2021- No Altered 1{packe Q.74850717 Take 1 [place] (METAMUCIL) 01-21 bowel t} [id number] Packet by [facility] 6 gram PwPk 00:00: 00:00 elimination 3D mouth 3 00 :00 due to times intestinal daily ostomy (before meals) for 90 days psyllium 2021- No Altered 1{packe Q.22436209 Take 1 [place] (METAMUCIL) 01-21 bowel t} [id number] Packet by [facility] 6 gram PwPk 00:00: 00:00 elimination 3D mouth 3 00 :00 due to times intestinal daily ostomy (before meals) for 90 days psyllium 2021- No Altered 1{packe Q.44372401 Take 1 [place] (METAMUCIL) 01-21 bowel t} [id number] Packet by [facility] 6 gram PwPk 00:00: 00:00 elimination 3D mouth 3 00 :00 due to times intestinal daily ostomy (before meals) for 90 days psyllium 2021- No Altered 1{packe Q.06354741 Take 1 [place] (METAMUCIL) 01-21 bowel t} [id number] Packet by [facility] 6 gram PwPk 00:00: 00:00 elimination 3D mouth 3 00 :00 due to times intestinal daily ostomy (before meals) for 90 days psyllium 2021- No Altered 1{packe Q.79777132 Take 1 [place] (METAMUCIL) 01-21 bowel t} [id number] Packet by [facility] 6 gram PwPk 00:00: 00:00 elimination 3D mouth 3 00 :00 due to times intestinal daily ostomy (before meals) for 90 days psyllium 2021- No Altered 1{packe Q.35543736 Take 1 [place] (METAMUCIL) 01-21 bowel t} [id number] Packet by [facility] 6 gram PwPk 00:00: 00:00 elimination 3D mouth 3 00 :00 due to times intestinal daily ostomy (before meals) for 90 days psyllium 2021- No Altered 1{packe Q.20503858 Take 1 [place] (METAMUCIL) 01-21 bowel t} [id number] Packet by [facility] 6 gram PwPk 00:00: 00:00 elimination 3D mouth 3 00 :00 due to times intestinal daily ostomy (before meals) for 90 days psyllium 2021- No Altered 1{packe Q.42989264 Take 1 [place] (METAMUCIL) 01-21 bowel t} [id number] Packet by [facility] 6 gram PwPk 00:00: 00:00 elimination 3D mouth 3 00 :00 due to times intestinal daily ostomy (before meals) for 90 days psyllium 2021- No Altered 1{packe Q.28754914 Take 1 [place] (METAMUCIL) 01-21 bowel t} [id number] Packet by [facility] 6 gram PwPk 00:00: 00:00 elimination 3D mouth 3 00 :00 due to times intestinal daily ostomy (before meals) for 90 days psyllium 2021- No Altered 1{packe Q.72876447 Take 1 [place] (METAMUCIL) 01-21 bowel t} [id number] Packet by [facility] 6 gram PwPk 00:00: 00:00 elimination 3D mouth 3 00 :00 due to times intestinal daily ostomy (before meals) for 90 days tamsulosin 2021- No Benign .4mg QD Take 1 Momin rris (FLOMAX) 01-12 prostatic capsule by [facility] 0.4 mg 00:00: 00:00 hyperplasia mouth capsule 00 :00 , daily. unspecified Start on whether 01/12/2022. lower urinary tract symptoms present tamsulosin 2021- No Benign .4mg QD Take 1 Momin rris (FLOMAX) 01-12 prostatic capsule by [facility] 0.4 mg 00:00: 00:00 hyperplasia mouth capsule 00 :00 , daily. unspecified Start on whether 01/12/2022. lower urinary tract symptoms present tamsulosin 2021- No Benign .4mg QD Take 1 Momin rris (FLOMAX) 01-12 prostatic capsule by [facility] 0.4 mg 00:00: 00:00 hyperplasia mouth capsule 00 :00 , daily. unspecified Start on whether 01/12/2022. lower urinary tract symptoms present tamsulosin 2021- No Benign .4mg QD Take 1 Momin rris (FLOMAX) 01-12 prostatic capsule by [facility] 0.4 mg 00:00: 00:00 hyperplasia mouth capsule 00 :00 , daily. unspecified Start on whether 01/12/2022. lower urinary tract symptoms present tamsulosin 2021-2021- No Benign .4mg QD Take 1 Momin rris (FLOMAX) 01-12 prostatic capsule by [facility] 0.4 mg 00:00: 00:00 hyperplasia mouth capsule 00 :00 , daily. unspecified Start on whether 01/12/2022. lower urinary tract symptoms present tamsulosin 2021-2021- No Benign .4mg QD Take 1 Momin rris (FLOMAX) 01-12 prostatic capsule by [facility] 0.4 mg 00:00: 00:00 hyperplasia mouth capsule 00 :00 , daily. unspecified Start on whether 01/12/2022. lower urinary tract symptoms present tamsulosin 2021-2021- No Benign .4mg QD Take 1 Momin rris (FLOMAX) 01-12 prostatic capsule by [facility] 0.4 mg 00:00: 00:00 hyperplasia mouth capsule 00 :00 , daily. unspecified Start on whether 01/12/2022. lower urinary tract symptoms present tamsulosin 2021-2021- No Benign .4mg QD Take 1 Momin rris (FLOMAX) 01-12 prostatic capsule by [facility] 0.4 mg 00:00: 00:00 hyperplasia mouth capsule 00 :00 , daily. unspecified Start on whether 01/12/2022. lower urinary tract symptoms present tamsulosin 2021-2021- No Benign .4mg QD Take 1 Momin rris (FLOMAX) 01-12 prostatic capsule by [facility] 0.4 mg 00:00: 00:00 hyperplasia mouth capsule 00 :00 , daily. unspecified Start on whether 01/12/2022. lower urinary tract symptoms present tamsulosin 2021-2021- No Benign .4mg QD Take 1 Momin rris (FLOMAX) 01-12 prostatic capsule by [facility] 0.4 mg 00:00: 00:00 hyperplasia [...] Momin rris (FLOMAX) 01-12 prostatic capsule by [facility] 0.4 mg 00:00: 00:00 hyperplasia mouth capsule 00 :00 , daily. unspecified Start on whether 01/12/2022. lower urinary tract symptoms present tamsulosin 2021-2021- No Benign .4mg QD Take 1 Momin rris (FLOMAX) 01-12 prostatic capsule by [facility] 0.4 mg 00:00: 00:00 hyperplasia mouth capsule 00 :00 , daily. unspecified Start on whether 01/12/2022. lower urinary tract symptoms present tamsulosin 2021-2021- No Benign .4mg QD Take 1 Momin rris (FLOMAX) 01-12 prostatic capsule by [facility] 0.4 mg 00:00: 00:00 hyperplasia mouth capsule 00 :00 , daily. unspecified Start on whether 01/12/2022. lower urinary tract symptoms present tamsulosin 2021-2021- No Benign .4mg QD Take 1 Momin rris (FLOMAX) 01-12 prostatic capsule by [facility] 0.4 mg 00:00: 00:00 hyperplasia mouth capsule 00 :00 , daily. unspecified Start on whether 01/12/2022. lower urinary tract symptoms present tamsulosin 2021-2021- No Benign .4mg QD Take 1 Momin rris (FLOMAX) 01-12 prostatic capsule by [facility] 0.4 mg 00:00: 00:00 hyperplasia mouth capsule 00 :00 , daily. unspecified Start on whether 01/12/2022. lower urinary tract symptoms present tamsulosin 2021-2021- No Benign .4mg QD Take 1 Momin rris (FLOMAX) 01-12 prostatic capsule by [facility] 0.4 mg 00:00: 00:00 hyperplasia mouth capsule 00 :00 , daily. unspecified Start on whether 01/12/2022. lower urinary tract symptoms present tamsulosin 2021-2021- No Benign .4mg QD Take 1 Momin rris (FLOMAX) 01-12 prostatic capsule by [facility] 0.4 mg 00:00: 00:00 hyperplasia mouth capsule 00 :00 , daily. unspecified Start on whether 01/12/2022. lower urinary tract symptoms present tamsulosin 2021-0 2021- No Benign .4mg QD Take 1 Momin rris (FLOMAX) 01-12 prostatic capsule by [facility] 0.4 mg 00:00: 00:00 hyperplasia mouth capsule 00 :00 , daily. unspecified Start on whether 01/12/2022. lower urinary tract symptoms present tamsulosin 2021-2021- No Benign .4mg QD Take 1 Momin rris (FLOMAX) 01-12 prostatic capsule by [facility] 0.4 mg 00:00: 00:00 hyperplasia mouth capsule 00 :00 , daily. unspecified Start on whether 01/12/2022. lower urinary tract symptoms present tamsulosin 2021-2021- No Benign .4mg QD Take 1 Momin rris (FLOMAX) 01-12 prostatic capsule by [facility] 0.4 mg 00:00: 00:00 hyperplasia mouth capsule 00 :00 , daily. unspecified Start on whether 01/12/2022. lower urinary tract symptoms present tamsulosin 2021-2021- No Benign .4mg QD Take 1 Momin rris (FLOMAX) 01-12 prostatic capsule by [facility] 0.4 mg 00:00: 00:00 hyperplasia [...] 00 daily mcg tablet cyanocobala 2021-0 Yes [id number] 1000ug QD Take 1 Lynne min, 5-21 4102 tablet by Health vitamin 00:00: mouth B-12, 1,000 00 daily mcg tablet cyanocobala 2-0 Yes [id number] 1000ug QD Take 1 Lynne min, 5-21 4102 tablet by Health vitamin 00:00: mouth B-12, 1,000 00 daily mcg tablet cyanocobala 2-0 Yes [id number] 1000ug QD Take 1 Lynne min, 5-21 [...] 06-21 n due to ge} Package by [facility] (BOOST) 00:00: 00:00 starvation mouth 3 oral [...] nutritional 2021- No Malnutritio 1{packa Take 1 Lnyne supplemment 5-21 06-21 n due to ge} [...] 09/07/21 at 2045, JOÃO iopamidol 2021- No [id number] 100mL 100 mL, Univers (ISOVUE 09-08 Intravenou [...] Indication s: acute pain ondansetron 2021-0 Yes [id number] 4mg Take 1 [facility] 4 mg 1-15 [...] Indication s: acute pain ondansetron 2021-0 Yes [id number] 4mg Take 1 [facility] 4 mg 1-15 [...] Indication s: acute pain ondansetron 2021-0 Yes [id number] 4mg Take 1 [facility] 4 mg 1-15 [...] Indication s: acute pain ondansetron 2021-0 Yes [id number] 4mg Take 1 [facility] 4 mg 1-15 [...] Indication s: acute pain ondansetron 2021-0 Yes [id number] 4mg Take 1 [facility] 4 mg 1-15 [...] Indication s: acute pain ondansetron 2021- No [id number] 4mg Take 1 [facility] 4 mg 1-15 [...] mcg tablet 00:00: mouth [place] 00 daily. [facility] Branch vitamin 2021-0 Yes 1000ug Take [...] Branch daily with meals. loperamide 2022-0 Yes [id number] 2mg Take 1 Univers 2 mg 1-12 [...] Branch daily with meals. loperamide 2022-0 Yes [id number] 2mg Take 1 Univers 2 mg 1-12 [...] Branch daily with meals. loperamide 2022-0 Yes [id number] 2mg Take 1 Univers 2 mg 1-12 [...] Branch daily with meals. loperamide 2022-0 Yes [id number] 2mg Take 1 Univers 2 mg 1-12 [...] Branch daily with meals. loperamide 2022-0 Yes [id number] 2mg Take 1 Univers 2 mg 1-12 [...] Branch daily with meals. loperamide 2022-0 Yes [id number] 2mg Take 1 Univers 2 mg 1-12 [...] Branch daily with meals. loperamide 2022-0 Yes [id number] 2mg Take 1 Univers 2 mg 1-12 [...] Branch daily with meals. loperamide 2022-0 Yes [id number] 2mg Take 1 Univers 2 mg 1-12 capsule by ity of capsule 00:00: mouth (two) Medical times Branch daily. psyllium 2022-0 Yes 1{packe Take 1 Univ ers 3.4 gram 1-12 t} Packet by ity of packet 00:00: mouth 2 [place] (two) Medical times Branch daily. acetaminoph 2022-0 Yes 650mg Take 2 Uni vers en 325 mg 1-12 tablets by ity of tablet 00:00: mouth [place] 00 every 6 Medical (six) Branch hours as needed for Pain (scale 1-3). ibuprofen 2022-0 Yes 600mg Take 1 Unive rs 600 mg 1-12 tablet by ity of tablet 00:00: mouth 3 [place] 00 (three) Medical times Branch daily with meals. loperamide 2022-0 Yes [id number] 2mg Take 1 Univers 2 mg 1-12 capsule by ity of capsule 00:00: mouth 2 [place] 00 (two) Medical times Branch daily. psyllium 2022-0 Yes 1{packe Take 1 Univ ers 3.4 gram 1-12 t} Packet by ity of packet 00:00: mouth [place] (two) Medical times Branch daily. acetaminoph 2022-0 [...] ity of tablet 00:00: 00:00 mouth 3 [place] 00 :00 (three) Medical times Branch daily with meals. loperamide 2022-0 2022- No [id number] 2mg Take 1 Univers 2 mg 1-12 08-10 capsule by ity of capsule 00:00: 00:00 mouth 2 [place] 00 :00 (two) Medical times Branch daily. psyllium 2022-0 2022- No 1{packe Take 1 Uni vers 3.4 gram 1-12 08-10 t} Packet by ity o f packet 00:00: 00:00 mouth 2 [place] 00 :00 (two) Medical times Branch daily. vitamin 2022-0 Yes 1000ug 1,000 mcg, Un piyush B-12 1-11 Oral, ity of (CYANOCOBAL 20:00: DAILY, [place] 00 First dose Medical tablet on [facility] 1,000 mcg 09/03/21 at 1400, Until Discontinu ed, Routine vitamin Yes 1000ug 1,000 mcg, Un piyush B-12 09-03 Oral, ity of (CYANOCOBAL 20:00: DAILY, [place] 00 First dose Medical tablet on [facility] 1,000 mcg 09/03/21 at 1400, Until Discontinu [...] Q6HPRN, [place] mg 55 Starting Medical on [facility] 09/03/21 at 0828, Until Discontinu ed, Routine, Pain (scale 4-6) traMADoL Yes 50mg 50 mg, Univers (ULTRAM) 09-03 Oral, ity of tablet 50 14:28: Q6HPRN, [place] mg 55 Starting Medical on [facility] 09/03/21 at 0828, Until Discontinu ed, Routine, Pain (scale 4-6) lidocaine-e 2021- No PRN, Unive rs pinephrine 09-03 Starting ity of (XYLOCAINE 14:15: 15:38 on Thu s WITH 00 :29 09/03/21 at Medical EPINEPHRINE 0815, Branch ) 1 Until Thu %-1:100,000 09/03/21 at injection 0938, Routine, Intra-op D5W 0.45% 2022-0 2022- No IV Univers NaCl 09-03 Infusion, ity of (1/2NS) 1 L 09:45: 14:26 at 110 Javi as + KCL 20 00 :39 mL/hr, Medical mEq CONTINUOUS Branch , Starting on Thu09/03/21 at 0345, Until Thu09/03/21 at 0826, Routine sulfur 2021-0 2021- No [id number] 5mL 5 mL, Unive rs hexafluorid 09-02 Intravenou i ty of e microsphr 21:30: 21:30 s, ONCE, 1 [place] (LUMASON) 00 :00 dose, On Medica l injection 5 Mon Branch mL 09/02/21 at 1530, Routine
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 : CAMILA GREGORY NaCl 0.9% 0 2021- No 500mL at [...] 1-08 Oral, ity of (PROTONIX) 15:00: DAILY, [place] EC tablet 00 First dose Medi mariusz [...] 14:00: First dose [place] SINGLES) 00 on [facility] Medical 3.4 gram 08/31/21 at Branch [...] 14:00: First dose [place] SINGLES) 00 on [facility] Medical 3.4 gram 08/31/21 at Branch [...] 08 Oral, ity of (TYLENOL) 06:03: Q6HPRN, [place] tablet 650 36 Starting Medic al mg on Sat Branch 08/31/21 at 0003, Until Discontinu ed, Routine, Pain (scale 1-3) acetaminoph 2021-0 Yes 650mg 650 mg, Un piyush en 08 Oral, ity of (TYLENOL) 06:03: Q6HPRN, [place] tablet 650 36 Starting Medic al mg [...] 00 :00 dose, On Medical 1,000 mg [facility] 08/29/21 Branc h at 1830, Routine lidocaine 2021-2021- No 10mL 10 mL, Unive rs 2% viscous 08-30 Oral, ity of (LIDOCAINE 00:30: 00:20 ONCE, 1 [place] as VISCOUS) 2 00 :00 dose, On Medic al % solution [facility] 08/29/21 Bra nch 10 mL at 1830, JOÃO benzonatate 2021- No 100mg 100 mg, U nivers (TESSALON 1-07 01-07 Oral, ity of PERLES) 00:30: 00:22 ONCE, 1 [place] capsule 100 00 :00 dose, On Medi mariusz mg [place] 08/29/21 Branch at 1830, Routine No known No Univers medications 1-06 ity of 19:35: [place] 26 [facility] Branch NaCl 0.9% 2020-08 Yes 10mL 10 mL, Univer s (NS) 2-12 Slow IV ity of injection 19:13: Push, PRN, [place] 10 mL 37 Starting Medical on [place] Branch 08/04/21 at 1313, Until Discontinu ed, Routine, line maintenanc e lidocaine 2020-08 Yes 5mL 5 mL, Univers 1% (PF) 2-12 Subcutaneo ity of (XYLOCAINE) 19:13: us, PRN, [place] injection 5 37 Starting Medi mariusz mL on [place] Branch 08/04/21 at 1313, Until Discontinu ed, Routine, Local anesthesia dextrose 5% 2020-08 Yes IV Univer s and 0.45% 2-12 Infusion, ity o f NaCl with 16:00: CONTINUOUS [place] KCl 40 mEq 00 , Starting Med ical 1,000 mL IV on [place] Branch Solution 08/04/21 at 1000, Until Discontinu ed, 1,000 mL, at 125 mL/hr NaCl 0.9% 2020-08- No 1000mL at 999 Uni vers (NS) bolus 2-12 12-12 mL/hr, ity of infusion 15:53: 17:17 1,000 mL, Javi as 1,000 mL 00 :00 IV Medical Piggyback, [place] ONCE, 1 dose, On [place] 08/04/21 at 1000, JOÃO D5W 0.45% 2020-08- No IV Univers NaCl + KCL 2-10 12-12 Infusion, ity of 20 mEq RTU 15:00: 15:56 CONTINUOUS [place] 20 mEq/L 00 :45 , Starting Medic al 1,000 mL IV on [facility] Branch Solution 08/02/21 at 0900, Until [place] 08/04/21 at 0956, 1,000 mL, at 100 [...] Until Discontinu ed, Routine iopamidol 2020-08- No [id number] 100mL 100 mL, Univers (ISOVUE 10-01 Intravenou ity o f 370-500 mL) 05:14: 05:14 s, ONCE, 1 [place] injection 00 :00 dose, On Medica l 100 mL [facility] 07/30/21 at 2315, Routine morpHINE 2020-08- No 2mg 2 mg, Slow Un piyush injection 2 09-30 IV Push, ity of mg 17:00: 17:10 ONCE, 1 [place] 00 :00 dose, On Medical [facility] 07/30/21 at 1115, Routine enoxaparin 2020-08 Yes 40mg 40 mg, Unive rs (LOVENOX) 09-30 Subcutaneo ity of injection 15:00: us, DAILY, [place] 40 mg 00 First dose Medical (after Branch last modificati on) on [facility] 07/30/21 at 0900, Until Discontinu ed, Routine pantoprazol 2020-08 No 40mg 40 mg, Uni vers e 09-30 Oral, ity of (PROTONIX) 15:00: 13:40 DAILY, [place] EC tablet 00 :20 First dose Medi mariusz 40 mg on [facility] 07/30/21 at 0900, Until Discontinu ed, Routine loperamide 2020-08 No 4mg 4 mg, Unive rs (IMODIUM 09-30 Oral, TID, ity of A-D) 14:00: 13:19 First dose [place] capsule 4 00 :28 on [facility] Medical mg 07/30/21 at Branch 0800, Until Discontinu ed, Routine psyllium 2020-08- No 1{packe 1 Packet, Univers (METAMUCIL 09-30 t} Oral, TID, it y of FIBER 14:00: 13:19 First dose [place] SINGLES) 00 :28 on [facility] Medical 3.4 gram 07/30/21 at Branc h packet 1 0800, Packet Until Discontinu [...] 2-07 Oral, ity of (TYLENOL) 06:10: Q6HPRN, [place] tablet 650 40 Starting Medic al mg on Thu [place] 07/30/21 at 0010, Until Discontinu ed, Routine, Pain (scale 1-3) morpHINE 2020-08- No 4mg 4 mg, Slow Un piyush injection 4 2-07 12-07 IV Push, ity of mg 03:30: 02:55 ONCE, 1 [place] 00 :00 dose, On Medical Mon Branch 07/29/21 at 2130, STAT psyllium 2020-08 Yes [id number] 1{packe Take 1 [facility] 3.4 gram 2-03 t} Packet by ity of packet 00:00: mouth 3 [place] 00 (three) Medical times Branch daily. loperamide 2020-08 Yes [id number] 4mg Take 2 [facility] 2 mg 2-03 capsules ity of capsule 00:00: by mouth 3 [place] 00 (three) Medical times Branch daily. pantoprazol 2020-08 Yes [id number] 40mg Take 1 Univers e 40 mg EC 2-03 tablet by ity of tablet 00:00: mouth [place] 00 daily. Medical Branch psyllium 2020-08 Yes [id number] 1{packe Take 1 [facility] 3.4 gram 2-03 t} Packet by ity of packet 00:00: mouth 3 [place] 00 (three) Medical times Branch daily. loperamide 2020-08 Yes [id number] 4mg Take 2 [facility] 2 mg 2-03 capsules ity of capsule 00:00: by mouth 3 [place] 00 (three) Medical times Branch daily. pantoprazol 2020-08 Yes [id number] 40mg Take 1 Univers e 40 mg EC 2-03 tablet by ity of tablet 00:00: mouth [place] 00 daily. Medical Branch psyllium 2020-08- No [id number] 1{packe Take 1 [facility] 3.4 gram 2-03 12-13 t} Packet by ity o f packet 00:00: 00:00 mouth 3 [place] 00 :00 (three) Medical times Branch daily. loperamide 2020-08- No [id number] 4mg Take 2 [facility] 2 mg 2-03 12-13 capsules ity of capsule 00:00: 00:00 by mouth 3 [place] 00 :00 (three) Medical times Branch daily. pantoprazol 2020-08- No [id number] 40mg Take 1 Univers e 40 mg EC 2-03 12-13 tablet by ity of tablet 00:00: 00:00 mouth [place] 00 :00 daily. Medical Branch psyllium 2020-08- No [id number] 1{packe Take 1 [facility] 3.4 gram 2-03 12-03 t} Packet by ity o f packet 00:00: 00:00 mouth 3 [place] 00 :00 (three) Medical times Branch daily for 90 days. loperamide 2020-08- No [id number] 4mg Take 2 [facility] 2 mg 2-03 12-03 capsules ity of capsule 00:00: 00:00 by mouth 3 [place] 00 :00 (three) Medical times Branch daily for 90 days. pantoprazol 2020-08- No [id number] 40mg Take 1 [facility] e 40 mg EC 207-26 tablet by ity of tablet 00:00: 00:00 mouth [place] 00 :00 daily for Medical 90 days. Branch psyllium 2020-08- No [id number] 1{packe Take 1 [facility] 3.4 gram 2-07-26 t} Packet by ity o f packet 00:00: 00:00 mouth 3 [place] 00 :00 (three) Medical times Branch daily. pantoprazol 2020-08- No [id number] 40mg Take 1 [facility] e 40 mg EC 09-26 tablet by ity of tablet 00:00: 00:00 mouth [place] 00 :00 daily. Medical Branch loperamide 2020-08- No [id number] 4mg Take 2 [facility] 2 mg 207-26 capsules ity of capsule 00:00: 00:00 by mouth 3 [place] 00 :00 (three) Medical times Branch daily. psyllium 2020-08- No [id number] 1{packe Take 1 [facility] 3.4 gram 207-26 t} Packet by ity o f packet 00:00: 00:00 mouth 3 [place] 00 :00 (three) Medical times Branch daily. loperamide 2020-08- No [id number] 4mg Take 2 [facility] 2 mg 207-26 capsules ity of capsule 00:00: 00:00 by mouth 3 [place] 00 :00 (three) Medical times Branch daily. pantoprazol 2020-08- No [id number] 40mg Take 1 [facility] e 40 mg [...] 2020-08 No 1{tbl} 1 tablet, Univers te-atropine 09-2503 [...] 1-30 Oral, ity of (TYLENOL) 07:31: Q6HPRN, [place] tablet 650 37 Starting Medic al mg on [facility] Branch 07/23/21 at 0131, Until Discontinu ed, Routine, Pain (scale 1-3) NaCl 0.9% 2020-08- 1000mL at 999 Uni vers (NS) bolus -30 11-30 mL/hr, ity of infusion 06:46: 07:00 1,000 mL, [place] 1,000 mL 00 :00 IV Medical Piggyback, [place] ONCE, 1 dose, On Thu07/23/21 at 0100, STAT heparin 2020-08 Yes 5000U 5,000 Univers (porcine) 0-09 Units, ity of injection 22:00: [place] 5,000 Units 00 us, Q8H, Medi mariusz First dose Branch on [facility] 06/01/21 at 1700, Until Discontinu ed, Routine pantoprazol 2020-08 Yes 40mg 40 mg, Univ ers e 0-09 Oral, BID, ity of (PROTONIX) 14:45: First dose [place] EC tablet 00 on [facility] Medical 40 mg 06/01/21 at Branch 0945, Until Discontinu ed, Routine psyllium 2020-08 Yes 1{packe 1 Packet, U nivers (METAMUCIL 0-09 t} Oral, ity of FIBER 14:45: DAILY, [place] SINGLES) 00 First dose Medic al 3.4 gram on [facility] Branch packet 1 06/01/21 at Packet 0945, Until Discontinu ed, Routine traMADoL 2020-08 Yes 50mg 50 mg, Univers (ULTRAM) 0-09 Oral, ity of tablet 50 14:39: Q6HPRN, [place] mg 34 Starting Medical on [facility] Branch 06/01/21 at 0939, Until Discontinu ed, Routine, Pain (scale 4-6) HYDROcodone 2020-08 Yes 1{tbl} 1 tablet, Univers -acetaminop 0-09 Oral, ity of hen (NORCO 14:39: Q6HPRN, [place] 5) 5-325 mg 16 Starting [facility] mariusz tablet 1 on [facility] Branch tablet 06/01/21 at 0939, Until Discontinu ed, Routine, Pain (scale 7-10) ondansetron 2020-08 Yes 4mg 4 mg, Slow Univers (ZOFRAN 0-09 IV Push, ity of (PF)) 14:38: Q6HPRN, [place] injection 4 58 Starting Medi mariusz mg on [facility] Branch 06/01/21 at 0938, Until Discontinu ed, Routine, Nausea and Vomiting (N/V) acetaminoph 2020-08 Yes 650mg 650 mg, Un piyush en 0-09 Oral, ity of (TYLENOL) 14:36: Q6HPRN, [place] tablet 650 07 Starting Medic al mg on [facility] Branch 06/01/21 at 0936, Until Discontinu [...] Thu05/31/21 at 2045, STAT iopamidol 2020-08- No [id number] 100mL 100 mL, Univers (ISOVUE 0-09 10-09 [...] On Thu05/31/21 at 1830, STAT psyllium Yes [id number] 1{packe Take 1 [facility] 3.4 gram 9-29 t} Packet by ity of packet 00:00: mouth [place] 00 daily. Medical Branch psyllium Yes [id number] 1{packe Take 1 [facility] 3.4 gram 9-29 t} Packet by ity of packet 00:00: mouth [place] 00 daily. Medical Branch psyllium Yes [id number] 1{packe Take 1 [facility] 3.4 gram 9-29 t} Packet by ity of packet 00:00: mouth [place] 00 daily. Medical Branch psyllium Yes [id number] 1{packe Take 1 [facility] 3.4 gram 9-29 t} Packet by ity of packet 00:00: mouth [place] 00 daily. Medical Branch psyllium Yes [id number] 1{packe Take 1 [facility] 3.4 gram 9-29 t} Packet by ity of packet 00:00: mouth [place] 00 daily. Medical Branch psyllium 2020- No [id number] 1{packe Take 1 [facility] 3.4 gram 9-29 12-13 t} Packet by ity o f packet 00:00: 00:00 mouth [place] 00 :00 daily. Medical Branch enoxaparin Yes 40mg 40 mg, Unive rs (LOVENOX) 05-21 Subcutaneo ity of injection 14:00: us, DAILY, [place] 40 mg 00 First dose Medical on Thu Branch 05/21/21 at 0900, Until Discontinu ed, Routine ondansetron 2021-0 Yes 4mg 4 mg, Slow Univers (ZOFRAN 05-21 IV Push, ity of (PF)) 00:15: Q6HPRN, [place] injection 4 13 Starting Medi mariusz mg [...] 05-21 Oral, ity of (TYLENOL) 00:15: Q6HPRN, [place] tablet 650 01 Starting Medic al mg [...] t} Oral, ity of FIBER 22:15: DAILY, [place] SINGLE) 00 First dose Medic al 3.4 gram (after Branch packet 1 last Packet modificati on) on Thu05/20/21 at 1715, Until Discontinu ed, Routine lactated 0 2020- No 2000mL at 999 Univ ers ringers IV 05-2027 mL/hr, ity of infusion 22:02: 22:36 2,000 mL, [place] 2,000 mL 00 :00 Intravenou Medic al s, ONCE, 1 Branch dose, On [facility] 05/20/21 at 1715, JOÃO ondansetron 2020- No 4mg 4 mg, Slow Univers (ZOFRAN 05-20 IV Push, ity of (PF)) 21:00: 20:15 ONCE, 1 [place] injection 4 00 :00 dose, On Medi mariusz mg [facility] 05/20/21 at 1600, JOÃO morpHINE 2020- No 4mg 4 mg, Slow Un piyush injection 4 05-20 IV Push, ity of mg 21:00: 20:15 ONCE, 1 [place] 00 :00 dose, On Medical [facility] 05/20/21 at 1600, STAT NaCl 0.9% No 500mL at 999 Univ ers (NS) bolus 05-20 mL/hr, 500 it y of infusion 21:00: 21:00 mL, IV [place] 500 mL 00 :00 Piggyback, Medical ONCE, 1 Branch dose, On [facility] 05/20/21 at 1600, STAT pantoprazol Yes 40mg 40 mg, Univ ers e 9-17 Oral, BID, ity of (PROTONIX) 01:00: First dose [place] EC tablet 00 on [facility] Medical 40 mg 05/09/21 at [place] 1999, Until Discontinu ed, Routine pantoprazol Yes 40mg 40 mg, Univ ers e 9-17 Oral, BID, ity of (PROTONIX) 01:00: First dose [place] EC tablet 00 on [facility] Medical 40 mg 05/09/21 at [place] 1999, Until Discontinu ed, Routine pantoprazol 2020- No [id number] 40mg Take 1 Univers e 40 mg EC 9-16 11-16 tablet by ity of tablet 00:00: 05:59 mouth 2 [place] 00 :00 (two) Medical [facility] daily pantoprazol 2020- No [id number] 40mg Take 1 Univers e 40 mg EC 9-16 11-16 tablet by ity of tablet 00:00: 05:59 mouth 2 [place] 00 :00 (two) [facility] daily pantoprazol 2020- No [id number] 40mg Take 1 Univers e 40 mg EC 9-16 11-16 tablet by ity of tablet 00:00: 05:59 mouth 2 [place] 00 :00 (two) Medical times Branch daily pantoprazol 2020- No [id number] 40mg Take 1 Univers e 40 mg EC 9-16 11-16 tablet by ity of tablet 00:00: 05:59 mouth 2 [place] 00 :00 (two) Medical times Branch daily pantoprazol 2020- No [id number] 40mg Take 1 [facility] e 40 mg EC 9-16 11-16 tablet by ity of tablet 00:00: 05:59 mouth 2 [place] 00 :00 (two) Medical times Branch daily pantoprazol 2020- No [id number] 40mg Take 1 Univers e 40 mg EC 9-16 11-16 tablet by ity of tablet 00:00: 05:59 mouth 2 [place] 00 :00 (two) Medical times Branch daily pantoprazol 2020- No [id number] 40mg Take 1 Univers e 40 mg [...] No 1000mL at 70 Univ ers infusion 9-15 09-15 mL/hr, IV ity o [...] IV Push, ity of (PF)) 04:16: Q6HPRN, [place] injection 4 34 Starting Medi mariusz mg on [facility] Branch 05/07/21 at 2316, Until Discontinu ed, Routine, Nausea and Vomiting (N/V) ondansetron 2020-0 Yes 4mg 4 mg, Slow Univers (ZOFRAN 9-15 IV Push, ity of (PF)) 04:16: Q6HPRN, [place] injection 4 34 Starting Medi mariusz mg on [facility] Branch 05/07/21 at 2316, Until Discontinu ed, Routine, Nausea and Vomiting (N/V) morpHINE 2020-0 2020- No 4mg 4 mg, Slow Un piyush injection 4 05-08 IV Push, ity of mg 04:16: 04:15 [facility], [place] 32 :32 Starting Medical on Thu [place] 05/07/21 at 2316, Until Thu05/08/21 at 2315, Routine, Pain (scale 7-10) morpHINE 2020-0 2020- No 4mg 4 mg, Slow Un piyush injection 4 05-08 IV Push, ity of mg 04:16: 04:15 Q4RN, [place] 32 :32 Starting Medical on [facility] 05/07/21 at 2316, Until 05/08/21 at 2315, Routine, Pain (scale 7-10) diazePAM 2020-0 2020- No 5mg 5 mg, Slow Un piyush (VALIUM) 05-08 IV Push, ity of injection 5 02:45: 02:49 ONCE, 1 [place] mg 00 :00 dose, On [facility] 05/07/21 at 2145, STAT diazePAM 2020-2020- No 5mg 5 mg, Slow Un piyush (VALIUM) 05-08 IV Push, ity of injection 5 02:45: 02:49 ONCE, 1 [place] mg 00 :00 dose, On [facility] 05/07/21 at 2145, STAT iopamidol 2020-2020- No [id number] 100mL 100 mL, Univers (ISOVUE 05-08 Intravenou ity o f 370-500 mL) 02:15: 01:08 s, ONCE, 1 [place] injection 00 :00 dose, On Medica l 100 mL [facility] 05/07/21 at 2115, Routine iopamidol 2020-2020- No [id number] 100mL 100 mL, Univers (ISOVUE 05-08 Intravenou ity o f 370-500 mL) 02:15: 01:08 s, ONCE, 1 [place] injection 00 :00 dose, On Medica l 100 mL [facility] 05/07/21 at 2115, Routine morpHINE 2020-2020- No 4mg 4 mg, Slow Un piyush injection 4 05-08 IV Push, ity of mg 01:45: 00:48 ONCE, 1 [place] 00 :00 dose, On [facility] 05/07/21 at 204, JOÃO ondansetron 2020-2020- No 4mg 4 mg, Slow Univers (ZOFRAN 05-08 IV Push, ity of (PF)) 01:45: 00:47 ONCE, 1 [place] injection 4 00 :00 dose, On Medi mariusz mg [facility] 05/07/21 at 204, JOÃO morpHINE 2020-0 2020- No 4mg 4 mg, Slow Un piyush injection 4 05-08 IV Push, ity of mg 01:45: 00:48 ONCE, 1 [place] 00 :00 dose, On Medical Tue Branch 05/07/21 at 204, JOÃO ondansetron 2020- No 4mg 4 mg, Slow Univers (ZOFRAN 05-08 IV Push, ity of (PF)) 01:45: 00:47 ONCE, 1 [place] injection 4 00 :00 dose, On Medi mariusz mg Tue Branch 05/07/21 at 2044, JOÃO flu vaccine 2020- No .5mL 0.5 mL, Un piyush 6 months 08-24 Intramuscu ity of and up (PF) 17:30: 18:09 lar, ONCE, [place] (FLUZONE 00 :00 1 dose, Medical QUAD 08/24/20 Branch at 1130, (PF)) Routine syringe 0.5 mL sulfamethox 2020- No 1{tbl} 1 tablet, [facility] azole-trime 08-24 Oral, BID, i ty of thoprim 02:00: 13:59 7 doses, [place] (BACTRIM 00 :00 First dose Medic al DS) 800-160 on [place] Branch mg per 08/23/20 tablet 1 at 1999, tablet Last dose on 08/26/20 at 1999, JOÃO
Re ason for Anti-Infec tive: Empiric Therapy for Suspected Infection< br>Empiric Therapy Site: Skin / Soft tissue
Duration of therapy: 72 hours sulfamethox 2020- No [id number] 1{tbl} Take 1 [facility] azole-trime 08-24 tablet by it y [...] 14:00: First dose [place] SINGLES) 00 on [facility] Medical 3.4 gram 08/23/20 Branch packet [...] f tablet 6 mg 03:12: - SEE [place] [facility] NS, 1 Branch dose, [...] IV Push, ity of (PF)) 03:12: Q6HPRN, [place] injection 4 08 Starting Medi mariusz mg Wed Branch 08/22/20 at 2112, Until Discontinu ed, Routine, Nausea and Vomiting (N/V) acetaminoph 2019-08 Yes 650mg 650 mg, Un piyush en 2-31 Oral, ity of (TYLENOL) 03:11: Q6HPRN, [place] tablet 650 56 Starting Medic al mg [...] of 350 00:30: 00:14 s, ONCE, 1 [place] BULK-100 00 :00 dose, Mon Medica l mL) 07/09/20 Branch injection at 1830, 100 mL Routine cefTRIAXone 2019-08 No 1000mg 1,000 mg, Univers (ROCEPHIN) 09-08 IV ity of 1,000 mg in 23:30: 00:58 Piggyback, [place] NaCl 0.9% 00 :00 ONCE, 1 Medical [...] 07/09/20 at 1645, JOÃO amoxicillin 2019-08 Yes [id number] 1{tbl} Take 1 Univers -clavulanat 1-16 tablet by ity of e 875-125 00:00: mouth [place] mg per 00 every 12 Medical tablet (twelve) Branch hours. amoxicillin 2019-08- No [id number] 1{tbl} Take 1 Univers -clavulanat 1-16 08-24 [...] of Therapy: 7 days ibuprofen 2019-08 Yes [id number] 800mg Take 1 U nivers 800 mg 0-08 tablet by ity of tablet 00:00: mouth [place] 00 every 6 Medical (six) Branch hours as needed for Pain (scale 4-6). loperamide 2019-08 Yes [id number] 4mg Take 2 U nivers 2 mg 0-08 capsules ity of capsule 00:00: by mouth 4 [place] 00 (four) Medical times Branch daily. diphenoxyla 2019-08 Yes [id number] 1{tbl} Take 1 Univers te-atropine 0-08 tablet by ity of 2.5-0.025 00:00: mouth [place] mg tablet 00 every 8 Medical (eight) Branch hours. psyllium 2019-08 Yes [id number] 3{packe Take 3 Univers 3.4 gram 0-08 t} Packets by ity o f packet 00:00: mouth 3 [place] 00 (three) Medical times Branch daily. psyllium 2020-1 Yes [id number] 3{packe Take 3 Univers 3.4 gram 0-08 t} Packets by ity o f packet 00:00: mouth 3 [place] 00 (three) Medical times Branch daily. diphenoxyla 2020-1 Yes [id number] 1{tbl} Take 1 Univers te-atropine 0-08 tablet by ity of 2.5-0.025 00:00: mouth [place] mg tablet 00 every 8 Medical (eight) Branch hours. loperamide 2020- Yes [id number] 4mg Take 2 U nivers 2 mg 0-08 capsules ity of capsule 00:00: by mouth 4 [place] 00 (four) Medical times Branch daily. ibuprofen 2020- Yes [id number] 800mg Take 1 U nivers 800 mg 0-08 tablet by ity of tablet 00:00: mouth [place] 00 every 6 Medical (six) Branch hours as needed for Pain (scale 4-6). psyllium 2020- Yes [id number] 3{packe Take 3 Univers 3.4 gram 0-08 t} Packets by ity o f packet 00:00: mouth 3 [place] 00 (three) Medical times Branch daily. diphenoxyla 2020- Yes [id number] 1{tbl} Take 1 Univers te-atropine 0-08 tablet by ity of 2.5-0.025 00:00: mouth [place] mg tablet 00 every 8 Medical (eight) Branch hours. loperamide 2020- Yes [id number] 4mg Take 2 U nivers 2 mg 0-08 capsules ity of capsule 00:00: by mouth 4 [place] 00 (four) Medical times Branch daily. ibuprofen 2020- Yes [id number] 800mg Take 1 U nivers 800 mg 0-08 tablet by ity of tablet 00:00: mouth [place] 00 every 6 Medical (six) Branch hours as needed for Pain (scale 4-6). psyllium 2020-1 Yes [id number] 3{packe Take 3 Univers 3.4 gram 0-08 t} Packets by ity o f packet 00:00: mouth 3 [place] 00 (three) Medical times Branch daily. diphenoxyla 2020-1 Yes [id number] 1{tbl} Take 1 Univers te-atropine 0-08 tablet by ity of 2.5-0.025 00:00: mouth [place] mg tablet 00 every 8 Medical (eight) Branch hours. loperamide 2020-1 Yes [id number] 4mg Take 2 U nivers 2 mg 0-08 capsules ity of capsule 00:00: by mouth 4 [place] 00 (four) Medical times Branch daily. ibuprofen 2020-1 Yes [id number] 800mg Take 1 U nivers 800 mg 0-08 tablet by ity of tablet 00:00: mouth [place] 00 every 6 Medical (six) Branch hours as needed for Pain (scale 4-6). psyllium 2020-1 Yes [id number] 3{packe Take 3 Univers 3.4 gram 0-08 t} Packets by ity o f packet 00:00: mouth 3 [place] 00 (three) Medical times Branch daily. diphenoxyla 2020-1 Yes [id number] 1{tbl} Take 1 Univers te-atropine 0-08 tablet by ity of 2.5-0.025 00:00: mouth [place] mg tablet 00 every 8 Medical (eight) Branch hours. loperamide 2020-1 Yes [id number] 4mg Take 2 U nivers 2 mg 0-08 capsules ity of capsule 00:00: by mouth 4 [place] 00 (four) Medical times Branch daily. ibuprofen 2020-1 Yes [id number] 800mg Take 1 U nivers 800 mg 0-08 tablet by ity of tablet 00:00: mouth [place] 00 every 6 Medical (six) Branch hours as needed for Pain (scale 4-6). psyllium 2020-1 Yes [id number] 3{packe Take 3 Univers 3.4 gram 0-08 t} Packets by ity o f packet 00:00: mouth 3 [place] 00 (three) Medical times Branch daily. diphenoxyla 2020-1 Yes [id number] 1{tbl} Take 1 Univers te-atropine 0-08 tablet by ity of 2.5-0.025 00:00: mouth [place] mg tablet 00 every 8 Medical (eight) Branch hours. loperamide 2020-1 Yes [id number] 4mg Take 2 U nivers 2 mg 0-08 capsules ity of capsule 00:00: by mouth 4 [place] 00 (four) Medical times Branch daily. ibuprofen 2020-1 Yes [id number] 800mg Take 1 U nivers 800 mg 0-08 tablet by ity of tablet 00:00: mouth [place] 00 every 6 Medical (six) Branch hours as needed for Pain (scale 4-6). psyllium 2020-1 Yes [id number] 3{packe Take 3 Univers 3.4 gram 0-08 t} Packets by ity o f packet 00:00: mouth 3 [place] 00 (three) Medical times Branch daily. diphenoxyla 2020-1 Yes [id number] 1{tbl} Take 1 Univers te-atropine 0-08 tablet by ity of 2.5-0.025 00:00: mouth [place] mg tablet 00 every 8 Medical (eight) Branch hours. loperamide 2020- Yes [id number] 4mg Take 2 U nivers 2 mg 0-08 capsules ity of capsule 00:00: by mouth 4 [place] 00 (four) Medical times Branch daily. ibuprofen 2020- Yes [id number] 800mg Take 1 U nivers 800 mg 0-08 tablet by ity of tablet 00:00: mouth [place] 00 every 6 Medical (six) Branch hours as needed for Pain (scale 4-6). psyllium 2020-1 Yes [id number] 3{packe Take 3 Univers 3.4 gram 0-08 t} Packets by ity o f packet 00:00: mouth 3 [place] 00 (three) Medical times Branch daily. diphenoxyla 2020- Yes [id number] 1{tbl} Take 1 Univers te-atropine 0-08 tablet by ity of 2.5-0.025 00:00: mouth [place] mg tablet 00 every 8 Medical (eight) Branch hours. loperamide 2020-1 Yes [id number] 4mg Take 2 U nivers 2 mg 0-08 capsules ity of capsule 00:00: by mouth 4 [place] 00 (four) Medical times Branch daily. ibuprofen 2020- Yes [id number] 800mg Take 1 U nivers 800 mg 0-08 tablet by ity of tablet 00:00: mouth [place] 00 every 6 Medical (six) Branch hours as needed for Pain (scale 4-6). psyllium 2020-1 Yes [id number] 3{packe Take 3 Univers 3.4 gram 0-08 t} Packets by ity o f packet 00:00: mouth 3 [place] 00 (three) Medical times Branch daily. diphenoxyla 2020-1 Yes [id number] 1{tbl} Take 1 Univers te-atropine 0-08 tablet by ity of 2.5-0.025 00:00: mouth [place] mg tablet 00 every 8 Medical (eight) Branch hours. loperamide 2020-1 Yes [id number] 4mg Take 2 U nivers 2 mg 0-08 capsules ity of capsule 00:00: by mouth 4 [place] 00 (four) Medical times Branch daily. ibuprofen 2020- Yes [id number] 800mg Take 1 U nivers 800 mg 0-08 tablet by ity of tablet 00:00: mouth [place] 00 every 6 Medical (six) Branch hours as needed for Pain (scale 4-6). psyllium 2020-1 Yes [id number] 3{packe Take 3 Univers 3.4 gram 0-08 t} Packets by ity o f packet 00:00: mouth 3 [place] 00 (three) Medical times Branch daily. diphenoxyla 2020-1 Yes [id number] 1{tbl} Take 1 Univers te-atropine 0-08 tablet by ity of 2.5-0.025 00:00: mouth [place] mg tablet 00 every 8 Medical (eight) Branch hours. loperamide 2020- Yes [id number] 4mg Take 2 U nivers 2 mg 0-08 capsules ity of capsule 00:00: by mouth 4 [place] 00 (four) Medical times Branch daily. ibuprofen 2019-1 Yes [id number] 800mg Take 1 U nivers 800 mg 0-08 tablet by ity of tablet 00:00: mouth [place] 00 every 6 Medical (six) Branch hours as needed for Pain (scale 4-6). psyllium 2020-1 Yes [id number] 3{packe Take 3 Univers 3.4 gram 0-08 t} Packets by ity o f packet 00:00: mouth 3 [place] 00 (three) Medical times Branch daily. diphenoxyla 2020-1 Yes [id number] 1{tbl} Take 1 Univers te-atropine 0-08 tablet by ity of 2.5-0.025 00:00: mouth [place] mg tablet 00 every 8 Medical (eight) Branch hours. loperamide 2020-1 Yes [id number] 4mg Take 2 U nivers 2 mg 0-08 capsules ity of capsule 00:00: by mouth 4 [place] 00 (four) Medical times Branch daily. ibuprofen 2020- Yes [id number] 800mg Take 1 U nivers 800 mg 0-08 tablet by ity of tablet 00:00: mouth [place] 00 every 6 Medical (six) Branch hours as needed for Pain (scale 4-6). psyllium 2020-1 Yes [id number] 3{packe Take 3 Univers 3.4 gram 0-08 t} Packets by ity o f packet 00:00: mouth 3 [place] 00 (three) Medical times Branch daily. diphenoxyla 2020-1 Yes [id number] 1{tbl} Take 1 Univers te-atropine 0-08 tablet by ity of 2.5-0.025 00:00: mouth [place] mg tablet 00 every 8 Medical (eight) Branch hours. loperamide 2020-1 Yes [id number] 4mg Take 2 U nivers 2 mg 0-08 capsules ity of capsule 00:00: by mouth 4 [place] 00 (four) Medical times Branch daily. ibuprofen 2020-1 Yes [id number] 800mg Take 1 U nivers 800 mg 0-08 tablet by ity of tablet 00:00: mouth [place] 00 every 6 Medical (six) Branch hours as needed for Pain (scale 4-6). psyllium 2020-1 Yes [id number] 3{packe Take 3 Univers 3.4 gram 0-08 t} Packets by ity o f packet 00:00: mouth 3 [place] 00 (three) Medical times Branch daily. diphenoxyla 2020-1 Yes [id number] 1{tbl} Take 1 Univers te-atropine 0-08 tablet by ity of 2.5-0.025 00:00: mouth [place] mg tablet 00 every 8 Medical (eight) Branch hours. loperamide 2020-1 Yes [id number] 4mg Take 2 U nivers 2 mg 0-08 capsules ity of capsule 00:00: by mouth 4 [place] 00 (four) Medical times Branch daily. ibuprofen 2020-1 Yes [id number] 800mg Take 1 U nivers 800 mg 0-08 tablet by ity of tablet 00:00: mouth [place] 00 every 6 Medical (six) Branch hours as needed for Pain (scale 4-6). psyllium 2020-1 Yes [id number] 3{packe Take 3 Univers 3.4 gram 0-08 t} Packets by ity o f packet 00:00: mouth 3 [place] 00 (three) Medical times Branch daily. diphenoxyla 2020-1 Yes [id number] 1{tbl} Take 1 Univers te-atropine 0-08 tablet by ity of 2.5-0.025 00:00: mouth [place] mg tablet 00 every 8 Medical (eight) Branch hours. loperamide 2019-08 Yes [id number] 4mg Take 2 U nivers 2 mg 0-08 capsules ity of capsule 00:00: by mouth 4 [place] 00 (four) Medical times Branch daily. ibuprofen 2019-08 Yes [id number] 800mg Take 1 U nivers 800 mg 0-08 tablet by ity of tablet 00:00: mouth [place] 00 every 6 Medical (six) Branch hours as needed for Pain (scale 4-6). acetaminoph 2019-08- No [id number] 650mg Take 2 Univers en 325 mg 0-08 10-09 tablets by ity of tablet 00:00: 04:59 mouth [place] 00 :00 every 6 Medical (six) Branch hours as needed for Pain (scale 1-3). acetaminoph 2019-08 No [id number] 650mg Take 2 Univers en 325 mg 0-08 10-09 tablets by ity of tablet 00:00: 04:59 mouth [place] 00 :00 every 6 Medical (six) Branch hours as needed for Pain (scale 1-3). acetaminoph 2019-08- No [id number] 650mg Take 2 Univers en 325 mg 0-08 10-09 tablets by ity of tablet 00:00: 04:59 mouth [place] 00 :00 every 6 Medical (six) Branch hours as needed for Pain (scale 1-3). acetaminoph 2019-08- No [id number] 650mg Take 2 Univers en 325 mg 0-08 10-09 tablets by ity of tablet 00:00: 04:59 mouth [place] 00 :00 every 6 Medical (six) Branch hours as needed for Pain (scale 1-3). acetaminoph 2019-08- No [id number] 650mg Take 2 Univers en 325 mg 0-08 10-09 tablets by ity of tablet 00:00: 04:59 mouth [place] 00 :00 every 6 Medical (six) Branch hours as needed for Pain (scale 1-3). acetaminoph 2019-08- No [id number] 650mg Take 2 Univers en 325 mg 0-08 10-09 tablets by ity of tablet 00:00: 04:59 mouth [place] 00 :00 every 6 Medical (six) Branch hours as needed for Pain (scale 1-3). acetaminoph 2019-08 No [id number] 650mg Take 2 Univers en 325 mg 0-08 10-09 tablets by ity of tablet 00:00: 04:59 mouth [place] 00 :00 every 6 Medical (six) Branch hours as needed for Pain (scale 1-3). acetaminoph 2019-08 No [id number] 650mg Take 2 Univers en 325 mg 0-08 10-09 tablets by ity of tablet 00:00: 04:59 mouth [place] 00 :00 every 6 Medical (six) Branch hours as needed for Pain (scale 1-3). acetaminoph 2019-08 No [id number] 650mg Take 2 Univers en 325 mg 0-08 10-09 tablets by ity of tablet 00:00: 04:59 mouth [place] 00 :00 every 6 Medical (six) Branch hours as needed for Pain (scale 1-3). acetaminoph 2019-08 No [id number] 650mg Take 2 Univers en 325 mg 0-08 10-09 tablets by ity of tablet 00:00: 04:59 mouth [place] 00 :00 every 6 Medical (six) Branch hours as needed for Pain (scale 1-3). acetaminoph 2019-08 No [id number] 650mg Take 2 Univers en 325 mg 0-08 10-09 tablets by ity of tablet 00:00: 04:59 mouth [place] 00 :00 every 6 Medical (six) Branch hours as needed for Pain (scale 1-3). acetaminoph 2019-08 No [id number] 650mg Take 2 Univers en 325 mg 0-08 10-09 tablets by ity of tablet 00:00: 04:59 mouth [place] 00 :00 every 6 Medical (six) Branch hours as needed for Pain (scale 1-3). acetaminoph 2019-08 No [id number] 650mg Take 2 Univers en 325 mg 0-08 10-09 tablets by ity of tablet 00:00: 04:59 mouth [place] 00 :00 every 6 Medical (six) Branch hours as needed for Pain (scale 1-3). acetaminoph 2019-08 No [id number] 650mg Take 2 Univers en 325 mg 0-08 10-09 tablets by ity of tablet 00:00: 04:59 mouth [place] 00 :00 every 6 Medical (six) Branch hours as needed for Pain (scale 1-3). psyllium 2019-08 No [id number] 3{packe Take 3 [facility] 3.4 gram 0-08 09-16 t} Packets by ity of packet 00:00: 00:00 mouth 3 [place] 00 :00 (three) Medical times Branch daily. diphenoxyla 2019-08 No [id number] 1{tbl} Take 1 Univers te-atropine 0-08 09-16 tablet by it y of 2.5-0.025 00:00: 00:00 mouth [place] mg tablet 00 :00 every 8 Medical (eight) Branch hours. loperamide 2019-08 No [id number] 4mg Take 2 Univers 2 mg 0-08 09-16 capsules ity of capsule 00:00: 00:00 by mouth 4 [place] as 00 :00 (four) Medical times Branch daily. ibuprofen 2019-08 No [id number] 800mg Take 1 [facility] 800 mg 0-08 09-16 tablet by ity of tablet 00:00: 00:00 mouth [place] 00 :00 every 6 Medical (six) Branch hours as needed for Pain (scale 4-6). acetaminoph 2019-08 No [id number] 650mg Take 2 Univers en 325 mg 0-08 09-16 tablets by ity of tablet 00:00: 00:00 mouth [place] 00 :00 every 6 Medical (six) Branch hours as needed for Pain (scale 1-3). psyllium 2019-08 No [id number] 3{packe Take 3 [facility] 3.4 gram 0-08 09-16 t} Packets by ity of packet 00:00: 00:00 mouth 3 [place] 00 :00 (three) Medical times Branch daily. diphenoxyla 2019-08 No [id number] 1{tbl} Take 1 Univers te-atropine 0-08 09-16 tablet by it y of 2.5-0.025 00:00: 00:00 mouth [place] mg tablet 00 :00 every 8 Medical (eight) Branch hours. loperamide 2019-08 No [id number] 4mg Take 2 Univers 2 mg 0-08 09-16 capsules ity of capsule 00:00: 00:00 by mouth 4 [place] 00 :00 (four) Medical times Branch daily. ibuprofen 2019-08 [id number] 800mg Take 1 [facility] 800 mg 0-08 09-16 tablet by ity of tablet 00:00: 00:00 mouth [place] 00 :00 every 6 Medical (six) Branch hours as needed for Pain (scale 4-6). acetaminoph 2019-08 [id number] 650mg Take 2 Univers en 325 mg 0-08 09-16 tablets by ity of tablet 00:00: 00:00 mouth [place] 00 :00 every 6 Medical (six) Branch hours as needed for Pain (scale 1-3). acetaminoph 2019-08 No [id number] 650mg Take 2 Univers en 325 mg 0-08 10-08 tablets by ity of tablet 00:00: 00:00 mouth [place] 00 :00 every 6 Medical (six) Branch hours as needed for Pain (scale 1-3). ibuprofen 2019-08 [id number] 800mg Take 1 [facility] 800 mg 0-08 10-08 tablet by ity of tablet 00:00: 00:00 mouth [place] 00 :00 every 6 Medical (six) Branch hours as needed for Pain (scale 4-6). loperamide 2019-08 No [id number] 4mg Take 2 [facility] 2 mg 0-08 10-08 capsules ity of capsule 00:00: 00:00 by mouth 4 [place] 00 :00 (four) Medical times Branch daily. diphenoxyla 2019-08- No [id number] 1{tbl} Take 1 Univers te-atropine 0-08 10-08 tablet by it y of 2.5-0.025 00:00: 00:00 mouth [place] mg tablet 00 :00 every 8 Medical (eight) Branch hours. psyllium 2019-08- No [id number] 3{packe Take 3 Univers 3.4 gram 0-08 [...] Medi mariusz (8 %) IV 05/29/20 at [facility] Piggyback 4 0730, g Routine magnesium 2019-08 2020- No 2g 2 g, IV Univ ers sulfate in 0-05 10-05 Piggyback, it y of water 2 13:30: 13:20 ONCE, 1 [place] gram/50 mL 00 :00 dose, Mon Medi mariusz (4 %) 05/28/20 at [place] infusion 2 0830, g Routine loperamide 2019-08 [...] [facility] 3.4 gram 05/27/20 at [facility] packet 1 1999, Packet Until Discontinu [...] mariusz (8 %) IV 05/24/20 at [facility] h Piggyback 4 1715, g Routine iohexoL 2019- 2020- No 50mL 50 mL, Univers (OMNIPAQUE 0-05-24 Injection, it y of 300-50 mL)) 17:45: 17:37 ONCE, 1 [place] 00 :[place] dose, [place] Medic al 50 mL 101/20 at Branch 1245, Routine FENTanyl PF 2019-08- [...] 16:01: 16:01 Starting [place] injection 03 :03 [facility] Medical 05/24/20 at Branch 1101, Until [...] dose, Thu Medica l mL) 05/23/20 at [place] injection 1015, 100 mL Routine docusate 2019- [...] Medic al mg Minutes, Branch Q8HPRN, Starting [facility] 05/22/20 at 2215, Until Discontinu ed, Routine, Nausea and Vomiting (N/V) D5W 0.45% 2020-0 Yes IV Univers NaCl 05-23 Infusion, ity of (1/2NS) 1 L 03:15: at 50 [place] + KCL 20 00 mL/hr, Medical mEq CONTINUOUS Branch , Starting [facility] 05/22/20 at 2230, Until Discontinu ed, Routine ibuprofen 2020-0 Yes 800mg 800 mg, Univ ers (IBU) 05-23 Oral, ity of tablet 800 03:13: Q6HPRN, [place] mg 38 [place] Medical e Branch 05/22/20 at 2213, Until Discontinu ed, Routine, Pain (scale 4-6) acetaminoph 2020-0 Yes 650mg 650 mg, Un piyush en 05-23 Oral, ity of (TYLENOL) 03:13: Q6HPRN, [place] tablet 650 36 Starting Medic al mg [facility] 05/22/20 at 2213, Until Discontinu ed, Routine, Pain (scale 1-3) morpHINE 2020-0 2020- No 4mg 4 mg, Slow Un piyush injection 4 05-22 IV Push, ity of mg 03:30: 03:13 ONCE, 1 [place] 00 :00 dose, [facility] 05/21/20 at Branch 2230, STAT piperacilli 2020-0 2020- No 3.375g 3.375 g, Univers n-tazobacta 05-20 IV ity of m (ZOSYN) 10:15: 22:14 [place]back, [place] 3.375 g in 00 :00 ONCE, 1 Medica l NaCl 0.9% dose, [facility] h (NS) 100 mL 05/20/20 at MINI-BAG 0515, 100 mL
Reas on for Anti-Infec tive: Documented Infection< br>Documen dain Infection Site: Abdominal< br>Duratio n of Therapy: 7 days iohexol 2019-2019- No 100mL 100 mL, Unive [...] Javi as 1,000 mL 00 :00 [facility], [facility] dose, 05/19/20 at 2245, STAT ibuprofen 2019-0 Yes [id number] 800mg Take 1 U nivers 800 mg 9-18 tablet by ity of tablet 00:00: mouth [place] 00 every 6 Medical (six) Branch hours as needed for Pain (scale 4-6). levoFLOXaci 2020-0 Yes [id number] 750mg Take 1 Univers n 750 mg 9-18 tablet by ity of tablet 00:00: mouth [place] 00 every 24 Medical (twenty-fo Branch ur) hours. loperamide 2020-0 Yes [id number] 2mg Take 1 U nivers 2 mg 9-18 capsule by ity of capsule 00:00: mouth [place] 00 daily. Medical Branch ibuprofen 2020-0 Yes [id number] 800mg Take 1 U nivers 800 mg 9-18 tablet by ity of tablet 00:00: mouth [place] 00 every 6 Medical (six) Branch hours as needed for Pain (scale 4-6). levoFLOXaci 2020-0 Yes [id number] 750mg Take 1 Univers n 750 mg 9-18 tablet by ity of tablet 00:00: mouth [place] 00 every 24 Medical (twenty-fo Branch ur) hours. loperamide 2020-0 Yes [id number] 2mg Take 1 U nivers 2 mg 9-18 capsule by ity of capsule 00:00: mouth [place] 00 daily. Medical Branch ibuprofen 2020-0 Yes [id number] 800mg Take 1 U nivers 800 mg 9-18 tablet by ity of tablet 00:00: mouth [place] 00 every 6 Medical (six) Branch hours as needed for Pain (scale 4-6). levoFLOXaci 2020-0 Yes [id number] 750mg Take 1 Univers n 750 mg 9-18 tablet by ity of tablet 00:00: mouth [place] 00 every 24 Medical (twenty-fo Branch ur) hours. loperamide 2020-0 Yes [id number] 2mg Take 1 U nivers 2 mg 9-18 capsule by ity of capsule 00:00: mouth [place] 00 daily. Medical Branch ibuprofen 2020-0 Yes [id number] 800mg Take 1 U nivers 800 mg 9-18 tablet by ity of tablet 00:00: mouth [place] 00 every 6 Medical (six) Branch hours as needed for Pain (scale 4-6). levoFLOXaci 2020-0 Yes [id number] 750mg Take 1 Univers n 750 mg 9-18 tablet by ity of tablet 00:00: mouth [place] 00 every 24 Medical (twenty-fo Branch ur) hours. loperamide 2020-0 Yes [id number] 2mg Take 1 U nivers 2 mg 9-18 capsule by ity of capsule 00:00: mouth [place] 00 daily. Medical Branch ibuprofen 2020-0 Yes [id number] 800mg Take 1 U nivers 800 mg 9-18 tablet by ity of tablet 00:00: mouth [place] 00 every 6 Medical (six) Branch hours as needed for Pain (scale 4-6). levoFLOXaci 2020-0 Yes [id number] 750mg Take 1 Univers n 750 mg 9-18 tablet by ity of tablet 00:00: mouth [place] 00 every 24 Medical (twenty-fo Branch ur) hours. loperamide 2020-0 Yes [id number] 2mg Take 1 U nivers 2 mg 9-18 capsule by ity of capsule 00:00: mouth [place] 00 daily. Medical Branch ibuprofen 2020-0 Yes [id number] 800mg Take 1 U nivers 800 mg 9-18 tablet by ity of tablet 00:00: mouth [place] 00 every 6 Medical (six) Branch hours as needed for Pain (scale 4-6). levoFLOXaci 2020-0 Yes [id number] 750mg Take 1 Univers n 750 mg 9-18 tablet by ity of tablet 00:00: mouth [place] 00 every 24 Medical (twenty-fo Branch ur) hours. loperamide 2020-0 Yes [id number] 2mg Take 1 U nivers 2 mg 9-18 capsule by ity of capsule 00:00: mouth [place] 00 daily. Medical Branch ibuprofen 2020-0 Yes [id number] 800mg Take 1 U nivers 800 mg 9-18 tablet by ity of tablet 00:00: mouth [place] 00 every 6 Medical (six) Branch hours as needed for Pain (scale 4-6). levoFLOXaci 2020-0 Yes [id number] 750mg Take 1 Univers n 750 mg 9-18 tablet by ity of tablet 00:00: mouth [place] 00 every 24 Medical (twenty-fo Branch ur) hours. loperamide 2020-0 Yes [id number] 2mg Take 1 U nivers 2 mg 9-18 capsule by ity of capsule 00:00: mouth [place] 00 daily. Medical Branch ibuprofen 2020-0 Yes [id number] 800mg Take 1 U nivers 800 mg 9-18 tablet by ity of tablet 00:00: mouth [place] 00 every 6 Medical (six) Branch hours as needed for Pain (scale 4-6). levoFLOXaci 2020-0 Yes [id number] 750mg Take 1 Univers n 750 mg 9-18 tablet by ity of tablet 00:00: mouth [place] 00 every 24 Medical (twenty-fo Branch ur) hours. loperamide 2020-0 Yes [id number] 2mg Take 1 U nivers 2 mg 9-18 capsule by ity of capsule 00:00: mouth [place] 00 daily. Medical Branch ibuprofen 2020-0 Yes [id number] 800mg Take 1 U nivers 800 mg 9-18 tablet by ity of tablet 00:00: mouth [place] 00 every 6 Medical (six) Branch hours as needed for Pain (scale 4-6). levoFLOXaci 2020-0 Yes [id number] 750mg Take 1 Univers n 750 mg 9-18 tablet by ity of tablet 00:00: mouth [place] 00 every 24 Medical (twenty-fo Branch ur) hours. loperamide 2020-0 Yes [id number] 2mg Take 1 U nivers 2 mg 9-18 capsule by ity of capsule 00:00: mouth [place] 00 daily. Medical Branch ibuprofen 2020-0 Yes [id number] 800mg Take 1 U nivers 800 mg 9-18 tablet by ity of tablet 00:00: mouth [place] 00 every 6 Medical (six) Branch hours as needed for Pain (scale 4-6). levoFLOXaci 2020-0 Yes [id number] 750mg Take 1 Univers n 750 mg 9-18 tablet by ity of tablet 00:00: mouth [place] 00 every 24 Medical (twenty-fo Branch ur) hours. loperamide 2020-0 Yes [id number] 2mg Take 1 U nivers 2 mg 9-18 capsule by ity of capsule 00:00: mouth [place] 00 daily. Medical Branch ibuprofen 2020-0 Yes [id number] 800mg Take 1 U nivers 800 mg 9-18 tablet by ity of tablet 00:00: mouth [place] 00 every 6 Medical (six) Branch hours as needed for Pain (scale 4-6). levoFLOXaci 2020-0 Yes [id number] 750mg Take 1 Univers n 750 mg 9-18 tablet by ity of tablet 00:00: mouth [place] 00 every 24 Medical (twenty-fo Branch ur) hours. loperamide 2020-0 Yes [id number] 2mg Take 1 U nivers 2 mg 9-18 capsule by ity of capsule 00:00: mouth [place] 00 daily. Medical Branch ibuprofen 2020-0 Yes [id number] 800mg Take 1 U nivers 800 mg 9-18 tablet by ity of tablet 00:00: mouth [place] 00 every 6 Medical (six) Branch hours as needed for Pain (scale 4-6). levoFLOXaci 2020-0 Yes [id number] 750mg Take 1 Univers n 750 mg 9-18 tablet by ity of tablet 00:00: mouth [place] 00 every 24 Medical (twenty-fo Branch ur) hours. loperamide 2020-0 Yes [id number] 2mg Take 1 U nivers 2 mg 9-18 capsule by ity of capsule 00:00: mouth [place] 00 daily. Medical Branch ibuprofen 2020-0 Yes [id number] 800mg Take 1 U nivers 800 mg 9-18 tablet by ity of tablet 00:00: mouth [place] 00 every 6 Medical (six) Branch hours as needed for Pain (scale 4-6). levoFLOXaci 2020-0 Yes [id number] 750mg Take 1 Univers n 750 mg 9-18 tablet by ity of tablet 00:00: mouth [place] 00 every 24 Medical (twenty-fo Branch ur) hours. loperamide 2020-0 Yes [id number] 2mg Take 1 U nivers 2 mg 9-18 capsule by ity of capsule 00:00: mouth [place] 00 daily. Medical Branch acetaminoph 2020- No [id number] 650mg Take 2 Univers en 325 mg 9-18 09-19 tablets by ity of tablet 00:00: 04:59 mouth [place] 00 :00 every 6 Medical (six) Branch hours as needed for Pain (scale 1-3). acetaminoph 2020- No [id number] 650mg Take 2 Univers en 325 mg 9-18 09-19 tablets by ity of tablet 00:00: 04:59 mouth [place] 00 :00 every 6 Medical (six) Branch hours as needed for Pain (scale 1-3). acetaminoph No [id number] 650mg Take 2 Univers en 325 mg 9-18 09-19 tablets by ity of tablet 00:00: 04:59 mouth [place] 00 :00 every 6 Medical (six) Branch hours as needed for Pain (scale 1-3). acetaminoph No [id number] 650mg Take 2 Univers en 325 mg 9-18 09-19 tablets by ity of tablet 00:00: 04:59 mouth [place] 00 :00 every 6 Medical (six) Branch hours as needed for Pain (scale 1-3). acetaminoph 2020- No [id number] 650mg Take 2 Univers en 325 mg 9-18 09-19 tablets by ity of tablet 00:00: 04:59 mouth [place] 00 :00 every 6 Medical (six) Branch hours as needed for Pain (scale 1-3). acetaminoph No [id number] 650mg Take 2 Univers en 325 mg 9-18 09-19 tablets by ity of tablet 00:00: 04:59 mouth [place] 00 :00 every 6 Medical (six) Branch hours as needed for Pain (scale 1-3). acetaminoph No [id number] 650mg Take 2 Univers en 325 mg 9-18 09-19 tablets by ity of tablet 00:00: 04:59 mouth [place] 00 :00 every 6 Medical (six) Branch hours as needed for Pain (scale 1-3). acetaminoph [id number] 650mg Take 2 Univers en 325 mg 9-18 09-19 tablets by ity of tablet 00:00: 04:59 mouth [place] 00 :00 every 6 Medical (six) Branch hours as needed for Pain (scale 1-3). acetaminoph [id number] 650mg Take 2 Univers en 325 mg 9-18 09-19 tablets by ity of tablet 00:00: 04:59 mouth [place] 00 :00 every 6 Medical (six) Branch hours as needed for Pain (scale 1-3). acetaminoph [id number] 650mg Take 2 Univers en 325 mg 9-18 09-19 tablets by ity of tablet 00:00: 04:59 mouth [place] 00 :00 every 6 Medical (six) Branch hours as needed for Pain (scale 1-3). acetaminoph [id number] 650mg Take 2 Univers en 325 mg 9-18 09-19 tablets by ity of tablet 00:00: 04:59 mouth [place] 00 :00 every 6 Medical (six) Branch hours as needed for Pain (scale 1-3). acetaminoph [id number] 650mg Take 2 Univers en 325 mg 9-18 09-19 tablets by ity of tablet 00:00: 04:59 mouth [place] 00 :00 every 6 Medical (six) Branch hours as needed for Pain (scale 1-3). acetaminoph [id number] 650mg Take 2 Univers en 325 mg 9-18 09-19 tablets by ity of tablet 00:00: 04:59 mouth [place] 00 :00 every 6 Medical (six) Branch hours as needed for Pain (scale 1-3). acetaminoph [id number] 650mg Take 2 Univers en 325 mg 9-18 10-08 tablets by ity of tablet 00:00: 00:00 mouth [place] 00 :00 every 6 Medical (six) Branch hours as needed for Pain (scale 1-3). ibuprofen [id number] 800mg Take 1 Univers 800 mg 9-18 10-08 tablet by ity of tablet 00:00: 00:00 mouth [place] 00 :00 every 6 Medical (six) Branch hours as needed for Pain (scale 4-6). levoFLOXaci 2019- No [id number] 750mg Take 1 Univers n 750 mg 9-18 10-08 tablet by ity o f tablet 00:00: 00:00 mouth [place] 00 :00 every 24 Medical (twenty-fo Branch ur) hours. loperamide 2019- No [id number] 2mg Take 1 Univers 2 mg 9-18 [...] [place] gram/50 mL 00 :00 dose, Tue Garo mariusz (8 %) IV 05/08/20 at Branc [...] Medic al s, ONCE, 1 Branch dose, [facility] 05/07/20 at 1715, Routine lactated 2020-0 2020- No 1000mL at 999 Univ ers ringers IV 05-07 mL/hr, ity of infusion 13:15: 14:09 1,000 mL, [place] as 1,000 mL 00 :00 Intravenou Medic al s, ONCE, 1 Branch dose, [facility] 05/07/20 at 0815, Routine HYDROcodone 2020-0 Yes 1{tbl} 1 tablet, Univers -acetaminop 05-07 Oral, ity of hen (NORCO 13:00: Q6HPRN, [place] 5) 5-325 mg 00 Starting [facility] tablet 1 Mon [place] tablet 05/07/20 at 0800, Until Discontinu ed, Routine, Pain (scale 4-6) magnesium 2020-0 2020- No 2g 2 g, IV Univ ers sulfate in 05-07 Piggyback, it y of water 2 13:00: 15:10 ONCE, 1 [place] gram/50 mL 00 :00 dose, [facility] (4 %) 05/07/20 at [place] infusion 2 0800, g Routine ibuprofen 2020-0 Yes 800mg 800 mg, Univ ers (IBU) 05-07 Oral, ity of tablet 800 12:45: Q6HPRN, [place] mg 22 Starting [facility] 05/07/20 at 0745, Until Discontinu ed, Routine, Pain (scale 4-6) FENTanyl PF 2020-0 2020- No Slow IV Un piyush (SUBLIMAZE 05-05 Push, PRN, it y of (PF)) 18:53: 20:05 Starting [place] injection 39 :03 [facility] Medical 05/05/20 at [place] 1353, Until Discontinu ed, Routine lidocaine 2020-0 2020- No PRN, Univers 1% (PF) 05-05 Starting ity of (XYLOCAINE) 18:26: 18:26 Sat [place] injection 34 :34 05/05/20 at Medi mariusz 1326, Branch Until Discontinu ed, Routine NaCl 0.9% 2019- 2020- No CONTINUOUS U nivers (NS) bolus 05-05 PRN, ity of infusion 18:15: 18:15 [place] 06 :06 [facility] Medical 05/05/20 at Branch 1315, Until Discontinu [...] Medica l I.V.) RTU on [facility] IV infusion 05/05/20 at 500 mg 0230, [...] :33 over 90 Medica l mL Minutes, [place] Piggyback Q24H ABX, 750 mg First dose [...]
Fa culty member approving Restricted medication : JEOL BAEZ traMADoL 2020-0 Yes [id number] 50mg Take [...] Indication s: acute pain ibuprofen 2020-0 Yes [id number] 400mg Take 2 Univers 200 mg 9-08 tablets by ity of tablet 00:00: mouth [place] 00 every 6 Medical (six) Branch hours as needed for Pain (scale 1-3). ibuprofen 2020-0 Yes [id number] 400mg Take 2 Univers 200 mg 9-08 tablets by ity of tablet 00:00: mouth [place] 00 every 6 Medical (six) Branch hours as needed for Pain (scale 1-3). ibuprofen 2020-0 Yes [id number] 400mg Take 2 Univers 200 mg 9-08 tablets by ity of tablet 00:00: mouth [place] 00 every 6 Medical (six) Branch hours as needed for Pain (scale 1-3). ibuprofen 2020-0 Yes [id number] 400mg Take 2 Univers 200 mg 9-08 tablets by ity of tablet 00:00: mouth [place] 00 every 6 Medical (six) Branch hours as needed for Pain (scale 1-3). ibuprofen 2020-0 Yes [id number] 400mg Take 2 Univers 200 mg 9-08 tablets by ity of tablet 00:00: mouth [place] 00 every 6 Medical (six) Branch hours as needed for Pain (scale 1-3). ibuprofen 2020-0 Yes [id number] 400mg Take 2 Univers 200 mg 9-08 tablets by ity of tablet 00:00: mouth [place] 00 every 6 Medical (six) Branch hours as needed for Pain (scale 1-3). ibuprofen 2020-0 Yes [id number] 400mg Take 2 Univers 200 mg 9-08 tablets by ity of tablet 00:00: mouth [place] 00 every 6 Medical (six) Branch hours as needed for Pain (scale 1-3). acetaminoph 2020-0 2020- No [id number] 650mg Take 2 Univers en 9-08 09-09 tablets by ity of (TYLENOL) 00:00: 04:59 mouth [place] 325 mg 00 :00 every 6 Medical tablet (six) Branch hours as needed for Pain (scale 4-6). acetaminoph 2020- No [id number] 650mg Take 2 Univers en 05-01 tablets by ity of (TYLENOL) 00:00: 04:59 mouth [place] 325 mg 00 :00 every 6 Medical tablet (six) Branch hours as needed for Pain (scale 4-6). acetaminoph No [id number] 650mg Take 2 Univers en 05-01 tablets by ity of (TYLENOL) 00:00: 04:59 mouth [place] 325 mg 00 :00 every 6 Medical tablet (six) Branch hours as needed for Pain (scale 4-6). acetaminoph 2020- No [id number] 650mg Take 2 Univers en 05-01 tablets by ity of (TYLENOL) 00:00: 04:59 mouth [place] 325 mg 00 :00 every 6 Medical tablet (six) Branch hours as needed for Pain (scale 4-6). acetaminoph 2020- No [id number] 650mg Take 2 Univers en 05-01 tablets by ity of (TYLENOL) 00:00: 04:59 mouth [place] 325 mg 00 :00 every 6 Medical tablet (six) Branch hours as needed for Pain (scale 4-6). acetaminoph 2020- No [id number] 650mg Take 2 Univers en 05-01 tablets by ity of (TYLENOL) 00:00: 04:59 mouth [place] 325 mg 00 :00 every 6 Medical tablet (six) Branch hours as needed for Pain (scale 4-6). acetaminoph 2020- No [id number] 650mg Take 2 Univers en 05-01 tablets by ity of (TYLENOL) 00:00: 04:59 mouth [place] 325 mg 00 :00 every 6 Medical tablet (six) Branch hours as needed for Pain (scale 4-6). ciprofloxac 2019-2019- No [id number] 750mg Take 1 Univers in HCl 750 05-01 tablet by ity of mg tablet 00:00: 04:59 mouth [place] 00 :00 every 12 Medical (twelve) Branch hours for 14 days. amoxicillin 2019- 2020- No [id number] 1{tbl} Take 1 Univers -clavulanat 05-01 tablet by it y of e 00:00: 04:59 mouth 2 [place] (AUGMENTIN) 00 :00 (two) Medical 875-125 mg times Branch per tablet daily for 14 days. ciprofloxac 2019-2019- No [id number] 750mg Take 1 Univers in HCl 750 05-01 tablet by ity of mg tablet 00:00: 04:59 mouth [place] 00 :00 every 12 Medical (twelve) Branch hours for 14 days. amoxicillin 2019-2019- No [id number] 1{tbl} Take 1 Univers -clavulanat 05-01 tablet by it y of e 00:00: 04:59 mouth 2 [place] (AUGMENTIN) 00 :00 (two) Medical 875-125 mg times Branch per tablet daily for 14 days. ciprofloxac 2019-2019- No [id number] 750mg Take 1 Univers in HCl 750 05-01 tablet by ity of mg tablet 00:00: 04:59 mouth [place] 00 :00 every 12 Medical (twelve) Branch hours for 14 days. amoxicillin 2019-2019- No [id number] 1{tbl} Take 1 Univers -clavulanat 05-01 tablet by it y of e 00:00: 04:59 mouth 2 [place] (AUGMENTIN) 00 :00 (two) Medical 875-125 mg times Branch per tablet daily for 14 days. ciprofloxac 2019-0 2019- No [id number] 750mg Take 1 Univers in HCl 750 05-01 tablet by ity of mg tablet 00:00: 04:59 mouth [place] 00 :00 every 12 Medical (twelve) Branch hours for 14 days. amoxicillin 2020-0 2020- No [id number] 1{tbl} Take 1 Univers -clavulanat 05-01 tablet by it y of e 00:00: 04:59 mouth 2 [place] (AUGMENTIN) 00 :00 (two) Medical 875-125 mg times Branch per tablet daily for 14 days. ciprofloxac 2019-2019- No [id number] 750mg Take 1 Univers in HCl 750 05-01 tablet by ity of mg tablet 00:00: 04:59 mouth [place] 00 :00 every 12 Medical (twelve) Branch hours for 14 days. amoxicillin 2019-2019- No [id number] 1{tbl} Take 1 Univers -clavulanat 05-01 tablet by it y of e 00:00: 04:59 mouth 2 [place] (AUGMENTIN) 00 :00 (two) Medical 875-125 mg times Branch per tablet daily for 14 days. ciprofloxac 2019-2019- No [id number] 750mg Take 1 Univers in HCl 750 05-01 tablet by ity of mg tablet 00:00: 04:59 mouth [place] 00 :00 every 12 Medical (twelve) Branch hours for 14 days. amoxicillin 2019-2019- No [id number] 1{tbl} Take 1 Univers -clavulanat 05-01 tablet by it y of e 00:00: 04:59 mouth 2 [place] (AUGMENTIN) 00 :00 (two) Medical 875-125 mg times Branch per tablet daily for 14 days. ciprofloxac 2019-2019- No [id number] 750mg Take 1 Univers in HCl 750 05-01 tablet by ity of mg tablet 00:00: 04:59 mouth [place] 00 :00 every 12 Medical (twelve) Branch hours for 14 days. amoxicillin 2019-2019- No [id number] 1{tbl} Take 1 Univers -clavulanat 05-01 tablet by it y of e 00:00: 04:59 mouth 2 [place] (AUGMENTIN) 00 :00 (two) Medical 875-125 mg times Branch per tablet daily for 14 days. acetaminoph 2019- 2020- No [id number] 650mg Take 2 Univers en 05-01 tablets by ity of (TYLENOL) 00:00: 00:00 mouth [place] 325 mg 00 :00 every 6 Medical tablet (six) Branch hours as needed for Pain (scale 4-6). ibuprofen 2019- 2020- No [id number] 400mg Take 2 Univers 200 mg 05-01 tablets by ity of tablet 00:00: 00:00 mouth [place] 00 :00 every 6 Medical (six) Branch hours as needed for Pain (scale 1-3). ciprofloxac 2019-0 2020- No [id number] 750mg Take 1 Univers in HCl 750 05-01 tablet by ity of mg tablet 00:00: 00:00 mouth [place] 00 :00 every 12 Medical (twelve) Branch hours for 14 days. amoxicillin 2020-0 2020- No [id number] 1{tbl} Take 1 Univers -clavulanat 05-01 tablet [...] Br anch MINI-BAG (after last reorder) on [place] 04/22/20 at 0800, 100 mL
Rest ricted use approved by: [employer]< br>Reason for Anti-Infec tive: Documented Infection< br>Documen dain Infection Site: Abdominal< br>Duratio n of Therapy: 7 days ciprofloxac 2019-0 Yes 750mg 750 mg, Un piyush in HCl 04-21 Oral, ity of (CIPRO) 23:00: Q12HA2, [place] tablet 750 00 First dose Med ical mg on [facility] 04/21/20 at 1800, Until Discontinu ed, JOÃO
Re ason for Anti-Infec tive: Documented Infection< br>Documen dain Infection Site: Abdominal< br>Duratio n of Therapy: 7 days aspirin 2020-0 Yes 81mg 81 mg, Univers chewable 04-21 Oral, ity of tablet 81 14:00: DAILY, [place] mg 00 First dose Medical on [facility] 04/21/20 at 0900, Until Discontinu ed, Routine multivitami 2020-0 Yes 1{tbl} 1 tablet, Univers n tablet 1 04-21 Oral, ity of tablet 14:00: DAILY, [place] 00 First dose Medical on [facility] 04/21/20 at 0900, Until Discontinu ed, Routine amoxicillin 2019-0 2020- No 500mg 500 mg, U nivers -pot 04-21 Oral, TID, ity of clavulanate 13:00: 14:44 First dose [place] 500 mg 00 :32 on [facility] Medical (AUGMENTIN 04/21/20 at [facility] 500) 0800, 500-125 mg Until tablet 500 [...] n of Therapy: 7 days traMADoL 2019- 2020- No 50mg 50 mg, Univer s [...] [place] 00 :03 First dose Medical on [facility] Branch 04/17/20 at 0900, Until Discontinu ed, Routine lidocaine 2019- No PRN, Univers 1% (PF) 04-16 Starting ity of (XYLOCAINE) 21:17: 21:17 [facility] [place] injection 53 :53 04/16/20 at [facility] 1617, Branch Until [facility] 04/16/20 at 1617, Routine FENTanyl PF 2019- No Slow IV Un piyush (SUBLIMAZE 04-16 Push, PRN, it y of (PF)) 21:16: 21:16 Starting [place] injection 07 :07 [facility] Medical 04/16/20 at Branch 1616, Until [facility] 04/16/20 at 1616, Routine midazolam 2019- No IV Push, Uni vers (VERSED) 04-16 PRN, ity of injection 21:16: 21:16 Starting [place] 07 :07 [facility] Medical 04/16/20 at Branch 1616, Until Thu04/16/20 [...] br>Duratio n of Therapy: 7 days iohexol 0 2019- No 120mL 120 mL, Unive rs [...] Until 04/13/20 at 1455, Routine midazolam 2019- 2020- No [...]
Rest ricted use approved by: ANTIMICROB IAL STEWARDSNM P COMMITTEE< br>Reason for Anti-Infec tive: Documented [...] mg 00 :00 NOW, 1 Medical dose, [facility] Branch 04/12/20 at 1200, Routine
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 : BIA [...] in 06 :54 Starting Medica l lactated [facility] Branch ringers 04/11/20 at 1,000 mL [...] 1 [place] gram/50 mL 00 :00 dose, [facility] Medi mariusz (4 %) 04/11/20 at Branch infusion 2 0645, g Routine Total 2019- No at 40 Univers Parenteral 04-10 mL/hr, ity of Nutrition 22:00: 11:51 2,040 mL, [place] 00 :29 TPNCONTINU Medical OUS, 1 [place] dose, First dose (after last modificati on) on [facility] 04/10/20 at 1700 magnesium 2019- No 4g 4 g, IV Univ ers sulfate in 04-10 Piggyback, it y of water 4 13:30: 13:41 ONCE, 1 [place] gram/50 mL 00 :00 dose, [facility] Medi mariusz (8 %) IV 04/10/20 at Branc h Piggyback 4 0830, g Routine DAPTOmycin 2019- No 500mg 500 mg, IV Univers (CUBICIN) 04-10 Piggyback, ity of 500 mg in 06:00: 15:57 Q24H ABX, [place] NaCl 0.9% 00 :33 First dose Medi mariusz (NS) on [facility] piggyback 04/10/20 at 0100, Until Discontinu ed, 100 mL
R mitali for Anti-Infec tive: Documented Infection< br>Documen dain Infection Site: Abdominal< br>Duratio n of Therapy: 7 days
Re stricted use approved by: ANTIMICROB IAL STEWARDSHI P COMMITTEE ibuprofen 2019- No 600mg 600 mg, Uni vers (IBU) 04-10 Oral, Q8H, ity of tablet 600 03:00: 10:59 First dose [place] mg 00 :06 on [facility] 04/09/20 at Branch 2200, Until Discontinu ed, Routine micafungin 2019- No 100mg 100 mg, IV Univers (MYCAMINE) 04-10 Piggyback, it y of 100 mg in 02:45: 15:57 Q24H ABX, [place] NaCl 0.9% 00 :33 First dose Medi mariusz (NS) 100 mL on [facility] MINI-BAG 04/09/20 at 2145, [...] [place] tablet 500 00 :23 on [facility] Medical mg 04/09/20 at Branch 1800, Until Discontinu ed, Routine Total 2019- No at 85 Univers Parenteral 04-09 mL/hr, ity of Nutrition 22:00: 22:18 2,040 mL, [place] 00 :00 TPNCONTINU Medical OUS, 1 Branch dose, First dose (after last reorder) on Thu04/09/20 at 1700 KCL 2019- 2020- No IV Univers (POTASSIUM 04-09 Infusion, ity of CHLORIDE) 17:43: 13:52 TITRATE, [place] 20 mEq in 20 :43 Starting Medica l lactated [facility] ringers 04/09/20 at 1,000 mL 1243, [...] 00 :18 Mon Medical solution 04/09/20 at [facility] h 0800, Until Discontinu ed, [...] First dose (after last modificati on) on [place] 04/08/20 at 1700 acetaminoph 2019-0 2020- No [...] doses, First dose (after last reorder) on [facility] 04/07/20 at 1800, Last dose on [place] 04/08/20 at 1200, Routine
Indicatio n: Perioperat ector Patient D5W-LR IV 2019- 2020- No 1000mL at 60 Univ ers infusion 04-07 08-16 mL/hr, IV ity o f 1,000 mL 22:45: 15:29 Infusion, [place] 00 :52 CONTINUOUS Medical , Starting Branch [facility] 04/07/20 at 1745, Until [place] 04/08/20 at 1029, Routine Total 2019- 2020- No at 85 Univers Parenteral 04-07 08-16 mL/hr, ity of Nutrition 22:00: 22:05 2,040 mL, [place] 00 :00 TPNCONTINU Medical OUS, 1 Branch dose, First dose on [facility] 04/07/20 at 1700 fluconazole 2019- 2020- No 400mg at 100 Un piyush (DIFLUCAN) 04-07 08-18 mL/hr, IV ity of IV 20:00: 01:35 Piggyback, [place] Piggyback 00 :07 Q24H ABX, Medic al 400 mg First dose Branch on [facility] 04/07/20 at 1500, Until Discontinu ed, JOÃO multivitami 2019- 2020- No 15mL 15 mL, Uni vers n (CENTRUM) 04-07 08-28 Enteral, ity of solution 15 14:00: 15:31 DAILY, [place] mL 00 :33 First dose Medical (after Branch last modificati on) on [facility] 04/07/20 at 0900, Until Discontinu ed, Routine [...] 00 :18 CONTINUOUS Medical , Starting Branch [facility] 04/07/20 at 0345, Until [facility] 04/07/20 at 1741, Routine D5W-LR IV 2019-0 [...] Bottle), ity of e 0.5% 01:00: Topical, [place] (DAKINS) 00 BID, First Medic al solution [...] 1800, Last dose on 8/15/20 at 1200, Routine
Indicatio n: Perioperat ector [...] o f succ 21:15: 22:41 ONCE, 1 [place] (CORTEF) 00 :00 dose, Fri Medica l 100 mg in 04/06/20 at Bran ch NaCl 0.9% 1615, 50 (NS) mL piggyback vasopressin 2019- 2020- No .03U/mi 0.03 Un piyush (PITRESSIN 04-06 n Units/min ity of SYNTHETIC) 21:00: 11:04 (4.5 [place] 40 Units in 00 :07 mL/hr), IV [...] of 1,000 mg in 19:30: 01:35 Piggyback, [place] NaCl 0.9% 00 :07 Administer Medi mariusz [...] 00 :35 Fri Medical injection 04/06/20 at [facility] 1110, Until 04/06/20 at 1129, Routine, Intra-op sodium 2020-0 2020- No ONCE INTRA Univ ers bicarbonate 04-06 PROCEDURE, i ty of 8.4 % (1 16:10: 16:29 [place] mEq/mL) 00 :35 Fri Medical injection 04/06/20 at [facility] ch 1110, Until 04/06/20 at 1129, Routine, [...] 00 :35 Fri Medical infusion 04/06/20 at [facility] 1029, Until Thu04/06/20 at 1129, Routine, Intra-op EPINEPHrine 2020-0 2020- No CONTINUOUS Univers 1 mg in 04-06 PRN, ity of NaCl 0.9% 15:29: 16:29 Starting [place] (NS) 00 :35 Fri Medical infusion 04/06/20 at [facility] 1029, Until Thu04/06/20 at 1129, Routine, Intra-op piperacilli 2020-0 2020- No CONTINUOUS Univers n-tazobacta 04-06 PRN, ity of m (ZOSYN) 14:57: 16:29 Starting [place] 3.375 g in 00 :35 Fri Medical NaCl 0.9% 04/06/20 at [facility] (NS) 100 mL 0957, infusion Until Discontinu ed, 100 mL, Intra-op piperacilli 2020-0 2020- No CONTINUOUS Univers n-tazobacta 04-06 PRN, ity of m (ZOSYN) 14:57: 16:29 Starting [place] 3.375 g in 00 :35 Fri Medical NaCl 0.9% 04/06/20 at [facility] (NS) 100 mL 0957, infusion Until Discontinu ed, 100 mL, Intra-op EPINEPHrine 2020-0 2020- No ONCE INTRA Univers 1:1,000 (1 04-06 PROCEDURE, it y of mg/mL) 14:54: 16:29 Starting [place] (ADRENALIN) 00 :35 Fri Medical injection 04/06/20 at [facility] 0954, Until Discontinu ed, Routine, Intra-op EPINEPHrine 2020-0 2020- No ONCE INTRA Univers 1:1,000 (1 04-06 PROCEDURE, it y of mg/mL) 14:54: 16:29 Starting [place] (ADRENALIN) 00 :35 Fri Medical injection 04/06/20 at [facility] 0954, Until Discontinu ed, Routine, Intra-op NORepinephr 2020-0 2020- No CONTINUOUS Univers ine 04-06 PRN, ity of (LEVOPHED) 14:39: 16:29 [place] 4 mg in 00 :35 [facility] Medical NaCl 0.9% 04/06/20 at [facility] (NS) 250 mL 0939, infusion Intra-op NORepinephr 2020-0 2020- No CONTINUOUS Univers ine 04-06 PRN, ity of (LEVOPHED) 14:39: 16:29 [place] 4 mg in 00 :35 [facility] Medical NaCl 0.9% 04/06/20 at [facility] (NS) 250 mL 0939, infusion Intra-op rocuronium 2020-0 2020- No IV Push, Un piyush (ZEMURON) 04-06 ONCE INTRA ity of injection 14:36: 16:29 PROCEDURE, [place] 00 :35 Starting [facility] Branch 04/06/20 at 0936, Until Thu04/06/20 at 1129, Routine, Intra-op rocuronium 2020-0 2020- No IV Push, Un piyush (ZEMURON) 04-06 ONCE INTRA ity of injection 14:36: 16:29 PROCEDURE, [place] 00 :35 Starting [facility] Branch 04/06/20 at 0936, Until Thu04/06/20 [...] Medical mL (1 %) 04/06/20 at [facility] h injection 0915, Until Thu04/06/20 [...] [place] injection 00 :35 Starting Medica l [facility] Branch 04/06/20 at 0915, Until Thu04/06/20 at 1129, Routine, Intra-op propofol IV 2020-0 2020- No ONCE INTRA Univers infusion 04-06 PROCEDURE, ity of 14:15: 16:29 Starting [place] 00 :35 [facility] Medical 04/06/20 at Branch 0915, Until Thu04/06/20 at 1129, Routine, Intra-op lidocaine 2020-0 2020- No ONCE INTRA U nivers 1% 04-06 PROCEDURE, ity of (XYLOCAINE) 14:15: 16:29 [place] 100 mg/10 00 :35 [facility] Medical mL (1 %) 04/06/20 at [facility] h injection 0915, Until Thu04/06/20 at 1129, Routine, Intra-op FENTanyl PF 2020-0 2020- No ONCE INTRA Univers (SUBLIMAZE 04-06 PROCEDURE, it y of (PF)) 14:15: 16:29 Starting [place] injection 00 :35 [facility] 04/06/20 at Branch 0915, Until Thu04/06/20 at 1129, Routine, Intra-op albumin 2020-0 2020- No CONTINUOUS Uni vers (ALBUMINAR- 04-06 PRN, ity of 5) 5 % 14:10: 16:29 Starting [place] injection 00 :35 [facility] 04/06/20 at Branch 0910, Until Discontinu ed, Intra-op lactated 2020-0 2020- No CONTINUOUS Un piyush ringers IV 04-06 PRN, ity of infusion 14:10: 16:29 Starting [place] 00 :35 [facility] 04/06/20 at Branch 0910, Until Discontinu ed, Routine, Intra-op albumin 2020-0 2020- No CONTINUOUS Uni vers (ALBUMINAR- 04-06 PRN, ity of 5) 5 % 14:10: 16:29 Starting [place] injection 00 :35 [facility] 04/06/20 at Branch 0910, Until Discontinu ed, [...] at 2200, Until Discontinu ed, Routine pantoprazol 2020- No 40mg 40 mg, IV Univers e 04-06 Piggyback, ity of (PROTONIX) 01:00: 11:53 Q12H, [place] 40 mg in 00 :30 First dose Medic al NaCl 0.9% on [place] Branch (NS) 100 mL 04/05/20 at MINI-BAG 2000, Until Discontinu ed, 100 mL acetaminoph 2020- No 1000mg 1,000 mg, Univers [...] mariusz (8 %) IV 04/04/20 at [facility] h Piggyback 4 0715, g Routine ketorolac 2020-0 2020- No 30mg 30 mg, Unive rs (TORADOL) 04-04 Slow IV ity of injection 05:00: 16:23 Push, Q6H, [place] 30 mg 00 :00 3 doses, Medical First dose Branch (after last modificati on) on Thu04/04/20 at 0000, Last dose on Thu04/04/20 at 1200, Routine
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
[...] mL/hr, Medical mEq CONTINUOUS Branch , Starting [place] 04/01/20 at 1915, Until 04/02/20 at 1816, Routine acetaminoph 2019-2019- No 650mg 650 mg, U nivers en 04-01 Oral, ity of (TYLENOL) 23:11: 21:31 Q6HPRN, [place] tablet 650 57 :27 Starting Medic al mg [place] 04/01/20 Branch at 1811, Until 04/03/20 at 1631, Routine, Pain (scale 1-3), Pain (scale 4-6) NaCl 0.9% 2019-0 2020- No 1000mL at 999 Uni vers (NS) bolus 04-01 mL/hr, ity of infusion 23:10: 00:18 1,000 mL, [place] 1,000 mL 00 :00 IV Medical Piggyback, Branch ONCE, 1 dose, [place] 04/01/20 at 1815, STAT lactulose 2019-0 2020- [...] 0900, Until Discontinu ed, Routine D5W-LR IV 2019-2019- No 1000mL at 125 [...] at Branch 181, JOÃO FENTanyl PF 2019- No 50ug 50 [...] Thu03/28/20 at 0800, Routine metoclopram 2020-0 Yes [id number] 5mg Take 1 Univers tammi HCl 8-05 tablet by ity of (REGLAN) 5 00:00: mouth [place] mg tablet 00 every 12 Medica l (twelve) Branch hours as needed for Nausea and Vomiting (N/V) (constipat ion). metoclopram 2020-0 Yes [id number] 5mg Take 1 Univers tammi HCl 8-05 tablet by ity of (REGLAN) 5 00:00: mouth [place] mg tablet 00 every 12 Medica l (twelve) Branch hours as needed for Nausea and Vomiting (N/V) (constipat ion). metoclopram 2020-0 Yes [id number] 5mg Take 1 Univers tammi HCl 8-05 tablet by ity of (REGLAN) 5 00:00: mouth [place] mg tablet 00 every 12 Medica l (twelve) Branch hours as needed for Nausea and Vomiting (N/V) (constipat ion). metoclopram 2020-0 Yes [id number] 5mg Take 1 Univers tammi HCl 8-05 tablet by ity of (REGLAN) 5 00:00: mouth [place] mg tablet 00 every 12 Medica l (twelve) Branch hours as needed for Nausea and Vomiting (N/V) (constipat ion). metoclopram 2020-0 2020- No [id number] 5mg Take 1 Univers tammi HCl 8-05 [...] 03-26 Oral, ity of (TYLENOL) 02:46: Q6HPRN, [place] tablet 650 05 Starting Medic al mg [place] 03/25/20 Branch at 2146, Until Discontinu ed, Routine, Pain (scale 1-3) iohexol 2020-0 2020- No 100mL 100 mL, Unive rs (OMNIPAQUE 03-26 Intravenou it y of 350 01:30: 01:30 s, ONCE, 1 [place] BULK-100 00 :00 dose, [place] Medica l mL) 03/25/20 at Branch injection 2030, 100 mL Routine NaCl 0.9% 2020-0 2020- No 1000mL at 999 Uni vers (NS) bolus 03-2603 mL/hr, ity of infusion 00:45: 00:42 1,000 mL, [place] 1,000 mL 00 :00 IV Medical Infusion, Branch ONCE, 1 dose, [place] 03/25/20 at 1945, JOÃO enoxaparin 2020-0 Yes [...] Yes 4mg 4 mg, Slow Univers (ZOFRAN 7 IV Push, ity of (PF)) 04:05: Q6HPRN, [place] injection 4 40 Starting Medi mariusz mg Fri Branch 03/02/20 at 2305, Until Discontinu ed, Routine, Nausea and Vomiting (N/V) acetaminoph 2020-0 Yes 650mg 650 mg, Un piyush en 11 Oral, ity of (TYLENOL) 04:05: Q6HPRN, [place] tablet 650 30 Starting Medic al mg Fri Branch 03/02/20 at 2305, Until Discontinu ed, Routine, Pain (scale 1-3) Polyethylen 2020-0 Yes [id number] 17g Take 1 Univers e Glycol 7-07 Packet by ity of 3350 17 00:00: mouth [place] gram powder 00 daily. Medica l Branch Polyethylen 2020-0 Yes [id number] 17g Take 1 Univers e Glycol 7-07 Packet by ity of 3350 17 00:00: mouth [place] gram powder 00 daily. Medica l Branch Polyethylen 2020-0 Yes [id number] 17g Take 1 Univers e Glycol 7-07 Packet by ity of 3350 17 00:00: mouth [place] gram powder 00 daily. Medica l Branch Polyethylen 2020-0 Yes [id number] 17g Take 1 Univers e Glycol 7-07 Packet by ity of 3350 17 00:00: mouth [place] gram powder 00 daily. Medica l Branch Polyethylen 2020-0 2020- No [id number] 17g Take 1 Univers e Glycol 7-07 08-05 Packet by ity o f 3350 17 00:00: 00:00 mouth [place] gram powder 00 :00 daily. Medica l Branch Polyethylen 2020-0 Yes 17g 17 g, Unive rs e Glycol 7-06 Oral, ity of 3350 18:15: DAILY, [place] (MIRALAX) 00 First dose Medi mariusz powder 17 g on Thu [place] 02/27/20 at 1315, Until Discontinu ed, Routine enoxaparin 2020-0 Yes 40mg 40 mg, Unive rs (LOVENOX) 7-06 Subcutaneo ity of injection 14:00: us, DAILY, [place] 40 mg 00 First dose Medical on [facility] 02/27/20 at 0900, Until Discontinu ed, Routine polyethylen 2020-0 Yes [id number] 17g Take 17 g Univers e glycol 17 7-06 by mouth ity of gram/dose 00:00: daily. [place] powder 00 [facility] polyethylen 2020-0 Yes [id number] 17g Take 17 g Univers e glycol 17 7-06 by mouth ity of gram/dose 00:00: daily. [place] powder 00 [facility] polyethylen 2020-0 Yes [id number] 17g Take 17 g Univers e glycol 17 7-06 by mouth ity of gram/dose 00:00: daily. [place] powder 00 [facility] polyethylen 2020-0 Yes [id number] 17g Take 17 g Univers e glycol 17 7-06 by mouth ity of gram/dose 00:00: daily. [place] powder 00 [facility] polyethylen 2020-0 Yes [id number] 17g Take 17 g Univers e glycol 17 7-06 by mouth ity of gram/dose 00:00: daily. powder [facility] polyethylen 2020-0 Yes [id number] 17g Take 17 g Univers e glycol 17 7-06 by mouth ity of gram/dose 00:00: daily. [place] powder [facility] polyethylen 2020-0 Yes [id number] 17g Take 17 g Univers e glycol 17 7-06 by mouth ity of gram/dose 00:00: daily. [place] powder [facility] polyethylen 2020-0 Yes [id number] 17g Take 17 g Univers e glycol 17 7-06 by mouth ity of gram/dose 00:00: daily. [place] powder [facility] polyethylen 2019-0 2020- No [id number] 17g Take 17 g Univers e glycol 17 7- 09-08 by mouth ity of gram/dose 00:00: 00:00 daily. [place] powder 00 :00 [facility] iohexol 2019- No 120mL 120 mL, Unive rs (OMNIPAQUE 02-25 Intravenou it y of 350 18:30: 18:30 s, ONCE, 1 [place] BULK-100 00 :00 dose, [place] Medica l mL) 02/26/20 at [place] injection 1330, 120 mL Routine lactated 2019- No 1000mL at 125 Univ ers ringers IV 02-25 07-06 mL/hr, ity of infusion 16:00: 17:57 1,000 mL, [place] 1,000 mL 00 :14 IV Medical Infusion, [place] CONTINUOUS , Starting 02/26/20 at 1100, Until 02/27/20 at 1257, Routine acetaminoph Yes 650mg 650 mg, Un piyush en 705 Oral, ity of (TYLENOL) 15:01: Q6HPRN, [place] tablet 650 46 Starting Medic al mg 02/26/20 [place] at 1001, Until Discontinu ed, Routine, Pain (scale 1-3), Pain (scale 4-6) pantoprazol 2019-0 2020- No [id number] 40mg Take 1 Univers e 40 mg EC 6-15 -14 tablet by ity of tablet 00:00: 04:59 mouth [place] 00 :00 daily for Medical 90 days. [place] pantoprazol 2019-0 2019- No [id number] 40mg Take 1 Univers e 40 mg EC 6-15 09-14 tablet by ity of tablet 00:00: 04:59 mouth [place] 00 :00 daily for Medical 90 days. Branch pantoprazol 2019-0 2019- No [id number] 40mg Take 1 Univers e 40 mg EC 6-15 09-14 tablet by ity of tablet 00:00: 04:59 mouth [place] 00 :00 daily for Medical 90 days. Branch pantoprazol 2019-0 2019- No [id number] 40mg Take 1 Univers e 40 mg EC 6-15 -14 tablet by ity of tablet 00:00: 04:59 mouth [place] 00 :00 daily for Medical 90 days. Branch pantoprazol 2019-0 2019- No [id number] 40mg Take 1 Univers e 40 mg EC 6-15 09-14 tablet by ity of tablet 00:00: 04:59 mouth [place] 00 :00 daily for Medical 90 days. Branch pantoprazol 2019-0 2019- No [id number] 40mg Take 1 Univers e 40 mg EC 6-15 -14 tablet by ity of tablet 00:00: 04:59 mouth [place] 00 :00 daily for Medical 90 days. Branch pantoprazol 2019-0 2019- No [id number] 40mg Take 1 Univers e 40 mg EC 6-15 -14 tablet by ity of tablet 00:00: 04:59 mouth [place] 00 :00 daily for Medical 90 days. Branch pantoprazol 2019-0 2019- No [id number] 40mg Take 1 Univers e 40 mg EC 6-15 09-14 tablet by ity of tablet 00:00: 04:59 mouth [place] 00 :00 daily for Medical 90 days. Branch pantoprazol 2019-0 2019- No [id number] 40mg Take 1 Univers e 40 mg EC 6-15 09-14 tablet by ity of tablet 00:00: 04:59 mouth [place] 00 :00 daily for Medical 90 days. Branch pantoprazol 2020-2019- No [id number] 40mg Take 1 Univers e 40 mg EC 6-15 09-14 tablet by ity of tablet 00:00: 04:59 mouth [place] 00 :00 daily for Medical 90 days. Branch pantoprazol 2019-0 2019- No [id number] 40mg Take 1 Univers e 40 mg EC 6-15 09-14 tablet by ity of tablet 00:00: 04:59 mouth [place] 00 :00 daily for Medical 90 days. Branch pantoprazol 2020-0 2020- No [id number] 40mg Take 1 Univers e 40 mg EC 6-15 09-14 tablet by ity of tablet 00:00: 04:59 mouth [place] 00 :00 daily for Medical 90 days. Branch pantoprazol 2020-0 2020- No [id number] 40mg Take 1 Univers e 40 mg EC 6-15 09-08 tablet by ity of tablet 00:00: 00:00 mouth [place] 00 :00 daily for Medical 90 days. Branch docusate 2020-0 2020- No [id number] 100mg Take 1 Univers 100 mg 6-14 09-13 capsule by ity of capsule 00:00: 04:59 mouth 2 [place] 00 :00 (two) Medical times Branch daily for 90 days. docusate 2020-0 2020- No [id number] 100mg Take 1 Univers 100 mg 6-14 09-13 capsule by ity of capsule 00:00: 04:59 mouth 2 [place] 00 :00 (two) Medical times Branch daily for 90 days. docusate 2020-0 2020- No [id number] 100mg Take 1 Univers 100 mg 6-14 09-13 capsule by ity of capsule 00:00: 04:59 mouth 2 [place] 00 :00 (two) Medical times Branch daily for 90 days. docusate 2020-0 2020- No [id number] 100mg Take 1 Univers 100 mg 6-14 09-13 capsule by ity of capsule 00:00: 04:59 mouth 2 [place] 00 :00 (two) Medical times Branch daily for 90 days. docusate 2020-0 2020- No [id number] 100mg Take 1 Univers 100 mg 6-14 09-13 capsule by ity of capsule 00:00: 04:59 mouth 2 [place] 00 :00 (two) Medical times Branch daily for 90 days. docusate 2020-0 2020- No [id number] 100mg Take 1 Univers 100 mg 6-14 09-13 capsule by ity of capsule 00:00: 04:59 mouth 2 [place] 00 :00 (two) Medical times Branch daily for 90 days. docusate 2020-0 2020- No [id number] 100mg Take 1 Univers 100 mg 6-14 09-13 capsule by ity of capsule 00:00: 04:59 mouth 2 [place] 00 :00 (two) Medical times Branch daily for 90 days. docusate 2020-0 2020- No [id number] 100mg Take 1 Univers 100 mg -07 05- capsule by ity of capsule 00:00: 04:59 mouth 2 [place] 00 :00 (two) Medical times Branch daily for 90 days. docusate 2020-0 2020- No [id number] 100mg Take 1 Univers 100 mg -07 05- capsule by ity of capsule 00:00: 04:59 mouth 2 [place] 00 :00 (two) Medical times Branch daily for 90 days. docusate 2020-0 2020- No [id number] 100mg Take 1 Univers 100 mg -07 05- capsule by ity of capsule 00:00: 04:59 mouth 2 [place] 00 :00 (two) Medical times Branch daily for 90 days. docusate 2020-0 2020- No [id number] 100mg Take 1 Univers 100 mg -07 05- capsule by ity of capsule 00:00: 04:59 mouth 2 [place] 00 :00 (two) Medical times Branch daily for 90 days. docusate 2020-0 2020- No [id number] 100mg Take 1 Univers 100 mg 02-04 capsule by ity of capsule 00:00: 04:59 mouth 2 [place] 00 :00 (two) Medical times Branch daily for 90 days. docusate 2020-0 2020- No [id number] 100mg Take 1 Univers 100 mg 02-04 capsule by ity of capsule 00:00: 00:00 mouth 2 [place] 00 :00 (two) Medical times Branch daily [...] 00 First dose Medical on [facility] 01/29/20 at 0900, Until Discontinu ed, Routine levothyroxi 2020-0 Yes 50ug 50 mcg, Uni vers ne 01-28 Oral, ity of (SYNTHROID) 11:00: QAM-0600, [place] tablet 50 00 First dose Medi mariusz mcg on [facility] 01/29/20 at 0600, Until Discontinu ed, Routine simethicone 2020-0 Yes 80mg 80 mg, Univ ers (GAS RELIEF 01-28 Oral, ity of (SIMETHICON 04:45: PC+HS, [place] E)) 00 First dose Medical chewable on [facility] tablet 80 01/28/20 at mg 2345, Until Discontinu ed, Routine D5W IV 2020-0 2020- No 1000mL at 50 Univers infusion 01-28 06-14 mL/hr, IV ity o f 1,000 mL 03:45: 18:41 Infusion, [place] 00 :31 CONTINUOUS Medical , Starting Branch [facility] 01/28/20 at 2245, Until [place] 02/05/20 at 1341, Routine bisacodyL 2020-0 2020- No 10mg 10 mg, Unive rs (DULCOLAX) 01-28-07 Rectal, ity o f suppository 03:00: 02:52 ONCE, 1 [place] 10 mg 00 :00 dose, [facility] 01/28/20 at Branch 2200, Routine ondansetron [...] [place] mg 25 :25 Starting Medical [facility] 01/28/20 Branch at 2031, Until [facility] 01/30/20 at 2030, Routine, Pain (scale 4-6) acetaminoph 2020-0 Yes 650mg 650 mg, Un piyush en 6-07 Oral, ity of (TYLENOL) 01:32: Q6HPRN, [place] tablet 650 14 Starting Medic al mg [...] dose, Sat Medica l mL) 01/28/20 at [place] injection 1900, 100 mL Routine ondansetron 2020-0 [...] of 350 02:15: 02:11 s, ONCE, 1 [place] BULK-100 00 :00 dose, Tue Medica l mL) 01/24/20 at [place] injection 2114, 100 mL Routine morpHINE 2019- No 4mg 4 mg, Slow Un piyush injection 4 01-24 IV Push, ity of mg 01:45: 00:43 ONCE, 1 [place] 00 :00 dose, Tue Medical 01/24/20 at Branch 2044, Routine ondansetron 2019- No 4mg 4 mg, Slow Univers (ZOFRAN 01-24 IV Push, ity of (PF)) 00:45: 00:58 Administer [place] injection 4 00 :00 over 15 Medic al mg Minutes, Branch ONCE, 1 dose, [facility] 01/24/20 at 1945, STAT NaCl 0.9% 2019- No 1000mL at 999 Uni vers (NS) bolus 01-2403 mL/hr, ity of infusion 00:45: 01:15 1,000 mL, [place] 1,000 mL 00 :00 IV Medical Infusion, Branch ONCE, 1 dose, [facility] 01/24/20 at 1945, JOÃO mineral oil 2019- 2020- No [id number] 30mL Take 30 mL Univers oral liquid 12-11 05-05 by mouth ity of 00:00: 04:59 daily for [place] 00 :00 14 days. Medical Branch tamsulosin [...] n (DAILY 04-14- abuse, in tablet by [employer]) 00:00: 00:00 remission mouth tablet 00 :00 daily. thiamine, 2021- No Alcohol 100mg QD Take 1 H arris B-1, 100 mg 04-14- abuse, in tablet by Health tablet 00:00: 00:00 remission mouth 00 :00 daily. multivitami 2021- No Alcohol 1{tbl} QD Take 1 Lynne n (DAILY 04-14- abuse, in tablet by [employer]) 00:00: 00:00 remission mouth tablet 00 :00 daily. thiamine, 2021- No Alcohol 100mg QD Take 1 H arris B-1, 100 mg 04-14- abuse, in tablet by Health tablet 00:00: 00:00 remission mouth 00 :00 daily. multivitami 2021- No Alcohol 1{tbl} QD Take 1 Lynne n (DAILY 04-14- abuse, in tablet by [employer]) 00:00: 00:00 remission mouth tablet 00 :00 daily. thiamine, 2021- No Alcohol 100mg QD Take 1 H arris B-1, 100 mg 04-14-21 abuse, in tablet by Health tablet 00:00: 00:00 remission mouth 00 :00 daily. multivitami 2021- No Alcohol 1{tbl} QD Take 1 Lynne n (DAILY 04-14- abuse, in tablet by [employer]) 00:00: 00:00 remission mouth tablet 00 :00 [...] n (DAILY 04-14 abuse, in tablet by [employer]) 00:00: 00:00 remission mouth tablet 00 :00 daily. 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 multivitami 2021- No Alcohol 1{tbl} QD Take 1 Lynne n (DAILY 04-14- abuse, in tablet by [employer]) 00:00: 00:00 remission mouth tablet 00 :00 daily. thiamine, 2021- No Alcohol 100mg QD Take 1 H arris B-1, 100 mg 04-14- abuse, in tablet by Health tablet 00:00: 00:00 remission mouth 00 :00 daily. multivitami 2021- No Alcohol 1{tbl} QD Take 1 Lynne n (DAILY 04-14-21 abuse, in tablet by [employer]) 00:00: 00:00 remission mouth tablet 00 :00 daily. thiamine, 2021- No Alcohol 100mg QD Take 1 H arris B-1, 100 mg 04-14 05-21 abuse, in tablet by Health tablet 00:00: 00:00 remission mouth 00 :00 daily. multivitami 2021- No Alcohol 1{tbl} QD Take 1 Lynne n (DAILY 04-14 05-21 abuse, in tablet by [employer]) 00:00: 00:00 remission mouth tablet 00 :00 daily. thiamine, 2021- No Alcohol 100mg QD Take 1 H arris B-1, 100 mg 04-14-21 abuse, in tablet by Health tablet 00:00: 00:00 remission mouth 00 :00 daily. multivitami 2021- No Alcohol 1{tbl} QD Take 1 Lynne n (DAILY 04-14- abuse, in tablet by [employer]) 00:00: 00:00 remission mouth tablet 00 :00 daily. thiamine, 2021- No Alcohol 100mg QD Take 1 H arris B-1, 100 mg 04-14-21 abuse, in tablet by Health tablet 00:00: 00:00 remission mouth 00 :00 daily. multivitami 2021- No Alcohol 1{tbl} QD Take 1 Lynne n (DAILY 04-14- abuse, in tablet by [employer]) 00:00: 00:00 remission mouth tablet 00 :00 daily. thiamine, 2021- No Alcohol 100mg QD Take 1 H arris B-1, 100 mg 04-14-21 abuse, in tablet by Health tablet 00:00: 00:00 remission mouth 00 :00 daily. multivitami 2021- No Alcohol 1{tbl} QD Take 1 Lynne n (DAILY 04-14- abuse, in tablet by [employer]) 00:00: 00:00 remission mouth tablet 00 :00 daily. thiamine, 2021- No Alcohol 100mg QD Take 1 H arris B-1, 100 mg 04-14- abuse, in tablet by Health tablet 00:00: 00:00 remission mouth 00 :00 daily. multivitami 2021- No Alcohol 1{tbl} QD Take 1 Lynne n (DAILY 04-14-21 abuse, in tablet by [employer]) 00:00: 00:00 remission mouth tablet 00 :00 [...] (DAILY 04-14 05-21 abuse, in tablet by [employer]) 00:00: 00:00 remission mouth tablet 00 :00 daily. thiamine, 2021- No Alcohol 100mg QD Take 1 H arris B-1, 100 mg 04-14 05-21 abuse, in tablet by Health tablet 00:00: 00:00 remission mouth 00 :00 daily. multivitami 2021- No Alcohol 1{tbl} QD Take 1 Lynne n (DAILY 04-14-21 abuse, in tablet by [employer]) 00:00: 00:00 remission mouth tablet 00 :00 daily. thiamine, 2021- No Alcohol 100mg QD Take 1 H arris B-1, 100 mg 04-14-21 abuse, in tablet by Health tablet 00:00: 00:00 remission mouth 00 :00 daily. multivitami 2021- No Alcohol 1{tbl} QD Take 1 Lynne n (DAILY 04-14-21 abuse, in tablet by [employer]) 00:00: 00:00 remission mouth tablet 00 :00 daily. thiamine, 2021- No Alcohol 100mg QD Take 1 H arris B-1, 100 mg 04-14 05-21 abuse, in tablet by Health tablet 00:00: 00:00 remission mouth 00 :00 daily. multivitami 2021- No Alcohol 1{tbl} QD Take 1 Lynne n (DAILY 8 05-21 abuse, in tablet by [employer]) 00:00: 00:00 remission mouth tablet 00 :00 [...] n (DAILY 04-14 abuse, in tablet by [employer]) 00:00: 00:00 remission mouth tablet 00 :00 daily. 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 multivitami 2021- No Alcohol 1{tbl} QD Take 1 Lynne n (DAILY 04-14 abuse, in tablet by [employer]) 00:00: 00:00 remission mouth tablet 00 :00 daily. 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 multivitami 2021- No Alcohol 1{tbl} QD Take 1 Lynne n (DAILY 04-14 abuse, in tablet by [employer]) 00:00: 00:00 remission mouth tablet 00 :00 daily. 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 multivitami 2021- No Alcohol 1{tbl} QD Take 1 Lynne n (DAILY 04-14 abuse, in tablet by [employer]) 00:00: 00:00 remission mouth tablet 00 :00 daily. levothyroxi Yes 50ug Take 1 Univ ers ne 50 mcg 2-07 tablet by ithiram o f tablet 00:00: mouth [place] 00 [...] [facility], 00:00:00 [place] [facility] Preserv and ABX Branch Free 2-64 YRS Influenza Virus 2021-06-04 Completed [facility], 00:00:00 [place] [facility] Preserv and ABX Branch Free 6 MO-64 YRS Influenza Virus 2021-06-04 Completed [facility], 00:00:00 [place] [facility] Preserv and ABX Branch Free 6 MO-64 YRS Influenza Virus 2021-06-04 Completed [facility], 00:00:00 [place] [facility] Preserv and ABX Branch Free 6 MO-64 YRS Influenza Virus 2021-06-04 Completed [facility], 00:00:00 [place] [facility] Preserv and ABX Branch Free 6 MO-64 YRS Influenza Virus 2021-06-04 Completed [facility], 00:00:00 [place] [facility] Preserv and ABX Branch Free 6 MO-64 YRS Influenza Virus 2021-06-04 Completed [facility], 00:00:00 [place] [facility] Preserv and ABX Branch Free 6 MO-64 YRS Influenza Virus 2021-06-04 Completed [facility], 00:00:00 [place] [facility] Preserv and ABX Branch Free 6 MO-64 YRS Influenza Virus 2021-06-04 Completed [facility], 00:00:00 [place] [facility] Preserv and ABX Branch Free [...] [facility], 00:00:00 [place] [facility] Preserv and ABX Branch Free [...] y of Vaccine [facility] .5 mL 00:00:00 [place] [facility] 6+ MO Branch Influenza Virus [...] y of Vaccine Quad .5 mL 00:00:00 [place] [facility] IM 6+ MO Branch PPD 2017-04-14 [...] y of Vaccine Quad IM 3+ 00:00:00 [facility] Influenza Virus 2016-05-16 Completed [facility] IM 3+ 00:00:00 [facility] Influenza Virus 2016-05-16 Completed [facility] IM 3+ 00:00:00 [facility] Influenza Virus 2016-05-16 Completed [facility] IM 3+ 00:00:00 [facility] Influenza Virus 2016-05-16 Completed [facility] 3+ 00:00:00 [facility] Influenza Virus 2016-05-16 Completed [facility] 3+ 00:00:00 [facility] Influenza Virus 2016-05-16 Completed [facility] IM 3+ 00:00:00 [facility] Influenza Virus 2016-05-16 Completed [facility] IM 3+ 00:00:00 [facility] Influenza Virus 2016-05-16 Completed [facility] IM 3+ 00:00:00 [facility] Influenza Virus 2016-05-16 Completed [facility] IM 3+ 00:00:00 [facility] Influenza Virus 2016-05-16 Completed [facility] IM 3+ 00:00:00 [facility] Influenza Virus 2016-05-16 Completed [facility] IM 3+ 00:00:00 [facility] Influenza Virus 2016-05-16 Completed [facility] IM 3+ 00:00:00 [facility] Influenza Virus 2016-05-16 Completed [facility] IM 3+ 00:00:00 [facility] Influenza Virus 2016-05-16 Completed [facility] IM 3+ 00:00:00 [facility] Influenza Virus 2016-05-16 Completed [facility] IM 3+ 00:00:00 [facility] Influenza Virus 2016-05-16 Completed [facility] IM 3+ 00:00:00 [facility] Influenza Virus 2016-05-16 Completed [facility] IM 3+ 00:00:00 [facility] Influenza Virus 2016-05-16 Completed [facility] IM 3+ 00:00:00 [facility] Influenza Virus 2016-05-16 Completed [facility] IM 3+ 00:00:00 [facility] Influenza Virus 2016-05-16 Completed [facility] IM 3+ 00:00:00 [facility] Influenza Virus 2016-05-16 Completed [facility] IM 3+ 00:00:00 [facility] Influenza Virus 2016-05-16 Completed [facility] IM 3+ 00:00:00 [facility] Influenza Virus 2016-05-16 Completed [facility] IM 3+ 00:00:00 [facility] Influenza Virus 2016-05-16 Completed [facility] IM 3+ 00:00:00 [facility] Influenza Virus 2016-05-16 Completed [facility] IM 3+ 00:00:00 [facility] Influenza Virus 2016-05-16 Completed [facility] IM 3+ 00:00:00 [facility] Influenza Virus 2016-05-16 Completed [facility] IM 3+ 00:00:00 [facility] Influenza Virus 2016-05-16 Completed [facility] IM 3+ 00:00:00 [facility] Influenza Virus 2016-05-16 Completed [facility] IM 3+ 00:00:00 [facility] Influenza Virus 2016-05-16 Completed [facility] IM 3+ 00:00:00 [facility] Influenza Virus 2016-05-16 Completed [facility] IM 3+ 00:00:00 [facility] Influenza Virus 2016-05-16 Completed [facility] IM 3+ 00:00:00 [facility] Influenza Virus 2016-05-16 Completed [facility] IM 3+ 00:00:00 [facility] Influenza Virus 2016-05-16 Completed [facility] IM 3+ 00:00:00 [facility] Influenza Virus 2016-05-16 Completed [facility] IM 3+ 00:00:00 [facility] Influenza Virus 2016-05-16 Completed [facility] IM 3+ 00:00:00 [facility] Influenza Virus 2016-05-16 Completed [facility] IM 3+ 00:00:00 [facility] Influenza Virus 2016-05-16 Completed [facility] IM 3+ 00:00:00 [facility] Influenza Virus 2016-05-16 Completed [facility] IM 3+ 00:00:00 [facility] Influenza Virus 2016-05-16 Completed [facility] IM 3+ 00:00:00 [facility] Influenza Virus 2016-05-16 Completed [facility] IM 3+ 00:00:00 [facility] Influenza Virus 2016-05-16 Completed [facility] IM 3+ 00:00:00 [facility] Influenza Virus 2016-05-16 Completed [facility] IM 3+ 00:00:00 [facility] Influenza Virus 2016-05-16 Completed [facility] IM 3+ 00:00:00 [facility] Influenza Virus 2016-05-16 Completed [facility] IM 3+ 00:00:00 [facility] Influenza Virus 2016-05-16 Completed [facility] IM 3+ 00:00:00 [facility] Influenza Virus 2016-05-16 Completed [facility] IM 3+ 00:00:00 [facility] Influenza Virus 2016-05-16 Completed [facility] IM 3+ 00:00:00 [facility] Influenza Virus 2016-05-16 Completed [facility] IM 3+ 00:00:00 [facility] Influenza Virus 2016-05-16 Completed [facility] IM 3+ 00:00:00 [facility] Influenza Virus 2016-05-16 Completed [facility] IM 3+ 00:00:00 [facility] Influenza Virus 2016-05-16 Completed [facility] IM 3+ 00:00:00 [facility] Influenza Virus 2016-05-16 Completed [facility] IM 3+ 00:00:00 [facility] Influenza Virus 2016-05-16 Completed [facility] IM 3+ 00:00:00 [facility] Influenza Virus 2016-05-16 Completed [facility] IM 3+ 00:00:00 [facility] Influenza Virus 2016-05-16 Completed [facility] IM 3+ 00:00:00 [facility] Influenza Virus 2016-05-16 Completed [facility] IM 3+ 00:00:00 [facility] Influenza Virus 2016-05-16 Completed [facility] IM 3+ 00:00:00 [facility] Influenza Virus 2016-05-16 Completed [facility] IM 3+ 00:00:00 [facility] Influenza Virus 2016-05-16 Completed [facility] IM 3+ 00:00:00 [facility] Influenza Virus 2016-05-16 Completed [facility] IM 3+ 00:00:00 [facility] Influenza Virus 2016-05-16 Completed [facility] IM 3+ 00:00:00 [facility] Influenza Virus 2016-05-16 Completed [facility] IM 3+ 00:00:00 [facility] Influenza Virus 2016-05-16 Completed [facility] IM 3+ 00:00:00 [facility] Influenza Virus 2016-05-16 Completed [facility] Vaccine [facility] IM 3+ 00:00:00 [facility] Influenza Virus 2016-05-16 Completed [facility] Vaccine Quad IM 3+ 00:00:00 [facility] Influenza Virus 2016-05-16 Completed [facility] IM 3+ 00:00:00 [facility] Influenza Virus 2016-05-16 Completed [facility] IM 3+ 00:00:00 [facility] Influenza Virus 2016-05-16 Completed [facility] IM 3+ 00:00:00 [facility] Influenza Virus 2016-05-16 Completed [facility] Vaccine [facility] IM 3+ 00:00:00 [facility] Influenza Virus 2016-05-16 Completed [facility] IM 3+ 00:00:00 [facility] Influenza Virus 2016-05-16 Completed [facility] Vaccine Quad IM 3+ 00:00:00 [facility] Influenza Virus 2016-05-16 Completed [facility] Vaccine Quad IM 3+ 00:00:00 [facility] Influenza Virus 2016-05-16 Completed [facility] of Vaccine Quad IM 3+ 00:00:00 [facility] Influenza Virus 2016-05-16 Completed [facility] Vaccine Quad IM 3+ 00:00:00 [facility] Influenza Virus 2016-05-16 Completed [facility] of Vaccine Quad IM 3+ 00:00:00 [facility] Influenza Virus 2016-05-16 Completed [facility] Vaccine Quad IM 3+ 00:00:00 [facility] Influenza Virus 2016-05-16 Completed [facility] Vaccine [facility] IM 3+ 00:00:00 [facility] Influenza Virus 2016-05-16 Completed [facility] Vaccine [facility] IM 3+ 00:00:00 [facility] Influenza Virus 2016-05-16 Completed [facility] Vaccine [facility] IM 3+ 00:00:00 [facility] Influenza Virus 2016-05-16 Completed [facility] of Vaccine Quad IM 3+ 00:00:00 [facility] Influenza Virus 2016-05-16 Completed [facility] Vaccine Quad IM 3+ 00:00:00 [facility] Influenza Virus 2016-05-16 Completed [facility] Vaccine Quad IM 3+ 00:00:00 [facility] Influenza Virus 2016-05-16 Completed [facility] Vaccine Quad IM 3+ 00:00:00 [facility] Influenza Virus 2016-05-16 Completed [facility] Vaccine Quad IM 3+ 00:00:00 [facility] Influenza Virus 2016-05-16 Completed [facility] Vaccine Quad IM 3+ 00:00:00 [facility] Influenza Virus 2016-05-16 Completed [facility] Vaccine Quad IM 3+ 00:00:00 [facility] Influenza Virus 2016-05-16 Completed [facility] Vaccine Quad IM 3+ 00:00:00 [facility] Influenza Virus 2016-05-16 Completed [facility] Vacc[facility] IM 3+ 00:00:00 [place] [facility] Influenza Virus 2016-05-16 Completed [facility] of Vaccine Quad IM 3+ 00:00:[address] [facility] Branch Influenza Virus 2016-05-16 Completed [facility] of Vaccine Quad IM 3+ 00:00:00 [facility] Influenza Virus 2016-05-16 Completed [facility] Vaccine Quad IM 3+ 00:00:00 [facility] Influenza Virus 2016-05-16 Completed [facility] of Vaccine Quad IM 3+ 00:00:[address] [facility] Branch Influenza Virus 2016-05-16 Completed [facility] Vaccine Quad IM 3+ 00:00:00 [facility] Influenza Virus 2016-05-16 Completed [facility] IM 3+ 00:00:00 [facility] Influenza Virus 2016-05-16 Completed [facility] IM 3+ 00:00:00 [facility] PPD Unknown Completed [facility] PPD Unknown Completed [facility] Influenza Virus Unknown Completed [facility] Vacc[facility] IM 3+ [facility] Influenza Virus Unknown Completed [facility] Vacc[facility] .5 mL [place] [facility] IM 6+ MO Branch (FLUZONE/FLULAVAL/F LUARIX) Influenza Virus Unknown Completed [facility] Vaccine Quad IM, [facility] [place] [facility] dical Preserv and ABX Branch Free 6 MO-64 YRS (FLUCELVAX) Influenza Virus Unknown Completed [facility] Vaccine [facility] IM 3+ [facility] Influenza Virus Unknown Completed [facility] Vaccine [facility] .5 mL [place] [facility] IM 6+ MO Branch (FLUZONE/FLULAVAL/F LUARIX) Influenza Virus Unknown Completed [facility] Vaccine [facility] IM, [facility] [place] [facility] dical Preserv and ABX Branch Free 6 MO-64 YRS (FLUCELVAX) Influenza Virus Unknown Completed [facility] Vaccine Quad IM 3+ [facility] Influenza Virus Unknown Completed [facility] Vacc[facility] .5 mL [place] [facility] IM 6+ MO Branch (FLUZONE/FLULAVAL/F LUARIX) Influenza Virus Unknown Completed [facility] Vaccine [facility] IM, [facility] [place] [facility] dical Preserv and ABX Branch Free 6 MO-64 YRS (FLUCELVAX) Influenza Virus Unknown Completed [facility] Vaccine [facility] IM 3+ [facility] Influenza Virus Unknown Completed [facility] Vaccine [facility] .5 mL [place] [facility] IM 6+ MO Branch (FLUZONE/FLULAVAL/F LUARIX) Influenza Virus Unknown Completed [facility] IM, [place] [facility] dical Preserv and ABX Branch Free 6 MO-64 YRS (FLUCELVAX) Influenza Virus Unknown Completed [facility] IM 3+ [place] [facility] YRS [facility] Vital Signs Vital Name Observation Time Observation Value Comments Source Systolic blood 2023-03-20 110 mm[Hg] University of pressure 22:49:37 [facility] Diastolic blood 2023-03-20 64 mm[Hg] University o f pressure 22:49:37 [facility] Heart rate 2023-03-20 75 /min University of 22:49:37 [facility] Body temperature 2023-03-20 36.94 Tasia University of 22:49:37 [facility] Respiratory rate 2023-03-20 17 /min University of 22:49:37 [facility] Oxygen saturation 2023-03-20 99 /min University of in Arterial blood 22:49:37 [facility] by Pulse oximetry Branch Body height 2023-03-20 185.4 cm University of 19:26:00 [facility] Body weight 2023-03-20 65.772 kg University of 19:26:00 [facility] BMI 2023-03-20 19.13 kg/m2 University of 19:26:00 [facility] Systolic blood 2023-01-28 99 mm[Hg] University of pressure 16:47:00 [facility] Diastolic blood 2023-01-28 63 mm[Hg] University o f pressure 16:47:00 [facility] Heart rate 2023-01-28 79 /min University of 16:47:00 [facility] Body temperature 2023-01-28 36.44 Tasia University of 16:47:00 [facility] Respiratory rate 2023-01-28 12 /min University of 16:47:00 [facility] Oxygen saturation 2023-01-28 100 /min University of in Arterial blood 16:47:00 [place] [facility] by Pulse oximetry Branch Body height 2023-01-27 185.4 cm University of 21:40:00 [facility] Body weight 2023-01-27 72.666 kg University of 21:40:00 [facility] BMI 2023-01-27 21.14 kg/m2 University of 21:40:00 [facility] Systolic blood 2023-01-27 120 mm[Hg] University of pressure 04:00:00 [facility] Diastolic blood 2023-01-27 84 mm[Hg] University o f pressure 04:00:00 [facility] Heart rate 2023-01-27 84 /min University of 04:00:00 [facility] Respiratory rate 2023-01-27 20 /min University of 04:00:00 [facility] Oxygen saturation 2023-01-27 99 /min University of in Arterial blood 04:00:00 [facility] by Pulse oximetry Branch Body temperature 2023-01-26 36.94 Tasia University of 23:28: [facility] Body height 2023-01-26 185.4 cm University of :28: [facility] Body weight 2023-01-26 68.04 kg University of :: [facility] BMI 2023-01-26 19.79 kg/m2 University of :28: [facility] Systolic blood 2022-12-15 128 mm[Hg] University of pressure 00:23:00 [facility] Diastolic blood 2022-12-15 72 mm[Hg] University o f pressure 00:23: [facility] Heart rate 2022-12-15 90 /min University of :23:00 [facility] Body temperature 2022-12-15 36.94 Tasia University of :23:00 [facility] Respiratory rate 2022-12-15 18 /min University of 00:23:00 [facility] Oxygen saturation 2022-12-15 100 /min University of in Arterial blood 00:23:00 [facility] by Pulse oximetry [place] Body weight 2022-12-14 68.04 kg University of :43:00 [facility] BMI 2022-12-14 19.79 kg/m2 University of 21:43:00 [facility] Systolic blood 2022-12-09 90 mm[Hg] University of pressure 16:10:00 [facility] Diastolic blood 2022-12-09 51 mm[Hg] University o f pressure 16:10:00 [facility] Heart rate 2022-12-09 81 /min University of 16:10:00 [facility] Body temperature 2022-12-09 37 Tasia University of 16:10: [facility] Respiratory rate 2022-12-09 17 /min University of 16:10:00 [facility] Oxygen saturation 2022-12-09 97 /min University of in Arterial blood 16:10:00 [facility] mariusz by Pulse oximetry Branch Body height 2022-11-27 185.4 cm University of 21:01:00 [facility] Body weight 2022-11-27 68.04 kg University of 21:01:00 [facility] BMI 2022-11-27 19.79 kg/m2 University of 21:01:00 [facility] Systolic blood 2022-12-04 90 mm[Hg] University of pressure 16:01:00 [facility] [place] Branch Diastolic blood 2022-12-04 57 mm[Hg] University o f pressure 16:01:00 [facility] Heart rate 2022-12-04 72 /min University of 16:01:00 [facility] Respiratory rate 2022-12-04 18 /min University of 16:01:00 [facility] Oxygen saturation 2022-12-04 96 /min University of in Arterial blood 16:01:00 [facility] mariusz by Pulse oximetry Branch Body temperature 2022-12-04 36.67 Tasia University of 15:58:00 [facility] Body height 2022-11-27 185.4 cm University of 21:01:00 [facility] Body weight 2022-11-27 68.04 kg University of 21:01:00 [facility] BMI 2022-11-27 19.79 kg/m2 University of 21:01:00 [facility] Systolic blood 2022-11-22 97 mm[Hg] University of pressure 16:45:00 [facility] Diastolic blood 2022-11-22 64 mm[Hg] University o f pressure 16:45:00 [facility] Heart rate 2022-11-22 75 /min University of 16:45:00 [facility] Body temperature 2022-11-22 35.56 Tasia [facility] 16:45:00 [facility] Respiratory rate 2022-11-22 18 /min [facility] 16:45:00 [facility] Oxygen saturation 2022-11-22 100 /min [facility] in Arterial blood 16:45:00 [facility] Pulse oxim[facility] Body weight 2022-11-20 70.3 kg [facility] 19:00:00 [facility] BMI 2022-11-20 20.45 kg/m2 [facility] 19:00:00 [facility] Body height 2022-11-20 185.4 cm [facility] 01:59:00 [facility] Systolic blood 2022-11-06 91 mm[Hg] [facility] pressure 16:52:00 [facility] Diastolic blood 2022-11-06 55 mm[Hg] [facility] o f pressure 16:52:00 [facility] Heart rate 2022-11-06 70 /min [facility] 16:52:00 [facility] Body temperature 2022-11-06 36.78 T[facility] 16:52:00 [facility] Respiratory rate 2022-11-06 20 /min [facility] 16:52:00 [facility] Oxygen saturation 2022-11-06 99 /min [facility] in Arterial blood 16:52:00 [facility] by Pulse oximetry Branch Body height 2022-11-02 185.4 cm [facility] 20:04:00 [facility] Body weight 2022-11-02 70.489 kg [facility] of 20:04:00 [facility] BMI 2022-11-02 20.50 kg/m2 [facility] 20:04:00 [facility] Systolic blood 2022-10-20 102 mm[Hg] [facility] pressure 04:30:00 [facility] Diastolic blood 2022-10-20 73 mm[Hg] [facility] f pressure 04:30:00 [facility] Heart rate 2022-10-20 83 /min [facility] 04:30:00 [facility] Respiratory rate 2022-10-20 19 /min [facility] 04:30:00 [facility] Oxygen saturation 2022-10-20 100 /min [facility] in Arterial blood 04:30:00 [facility] by Pulse oximetry Branch Body temperature 2022-10-20 36.61 [facility] 01:14:00 [facility] Body weight 2022-10-20 68.04 kg [facility] 01:14:00 [facility] BMI 2022-10-20 19.79 kg/m2 [facility] 01:14:00 [facility] Systolic blood 2022-05-21 103 mm[Hg] [facility] pressure 17:00:00 [facility] Diastolic blood 2022-05-21 56 mm[Hg] [facility] o f pressure 17:00:00 [facility] Heart rate 2022-05-21 71 /min [facility] 17:00:00 [facility] Respiratory rate 2022-05-21 11 /min [facility] 17:00:00 [facility] Oxygen saturation 2022-05-21 100 /min [facility] in Arterial blood 17:00:00 [facility] mariusz by Pulse oximetry Branch Body temperature 2022-05-21 36.39 Tasia [facility] 12:10:00 [facility] [place] Body weight 2022-05-21 69.491 kg University of 09:00:00 [facility] BMI 2022-05-21 20.21 kg/m2 [facility] of 09:00:00 [facility] Body height 2022-05-20 185.4 cm [facility] 06:07:00 [facility] Systolic blood 2022-04-10 115 mm[Hg] [facility] pressure 05:05:13 [facility] Diastolic blood 2022-04-10 93 mm[Hg] University o f pressure 05:05:13 [facility] Heart rate 2022-04-10 87 /min [facility] of 05:05:13 [facility] Respiratory rate 2022-04-10 15 /min [facility] 05:05:13 [facility] Oxygen saturation 2022-04-10 100 /min [place] [facility] in Arterial blood 05:05:13 [facility] mariusz by Pulse oximetry Branch Body temperature 2022-04-10 36.61 [facility] 01:35:00 [facility] Body height 2022-04-10 185.4 cm [facility] 01:35:00 [facility] Body weight 2022-04-10 68.04 kg [facility] 01:35:00 [facility] BMI 2022-04-10 19.79 kg/m2 [facility] 01:35:00 [facility] Systolic blood 2022-04-08 86 mm[Hg] [facility] pressure 13:00:00 [facility] Diastolic blood 2022-04-08 75 mm[Hg] University o f pressure 13:00:00 [facility] Heart rate 2022-04-08 61 /min [facility] 13:00:00 [facility] Body temperature 2022-04-08 35.67 [facility] 13:00:00 [facility] Respiratory rate 2022-04-08 17 /min [facility] 13:00:00 [facility] Oxygen saturation 2022-04-08 95 /min [facility] in Arterial blood 13:00:00 [facility] mariusz by Pulse oximetry Branch Body weight 2022-04-06 72.984 kg [facility] 08:20:00 [facility] BMI 2022-04-06 21.23 kg/m2 [facility] of 08:20:00 [facility] Body height 2022-04-02 185.4 cm University 16:37:00 [facility] Systolic blood 2022-03-13 94 mm[Hg] [facility] pressure 15:33:00 Diastolic blood 2022-03-13 62 mm[Hg] [facility] h pressure 15:33:00 Heart rate 2022-03-13 109 /min [facility] 15:33:00 Body temperature 2022-03-13 36.67 Tasia [facility] 15:33:00 Respiratory rate 2022-03-13 20 /min [facility] 15:33:00 Body height 2022-03-13 185.4 cm [facility] 15:33:00 Body weight 2022-03-13 66.679 kg [facility] 15:33:00 BMI 2022-03-13 19.39 kg/m2 [facility] 15:33:00 Oxygen saturation 2022-03-13 100 /min [facility] in Arterial blood 15:33:00 by Pulse oximetry HEIGHT 2022-03-06 185.4 cm 12:05:00 WEIGHT 2022-03-06 65.772 kg 12:05:00 HEIGHT 2022-03-06 185.4 cm 12:05:00 WEIGHT 2022-03-06 65.772 kg 12:05:00 Systolic blood 2022-02-20 118 mm[Hg] [facility] pressure 08:01:00 Diastolic blood 2022-02-20 82 mm[Hg] [facility] h pressure 08:01:00 Heart rate 2022-02-20 67 /min [facility] 08:01:00 Body temperature 2022-02-20 36.44 Tasia [facility] 08:01:00 Respiratory rate 2022-02-20 17 /min [facility] 08:01:00 Oxygen saturation 2022-02-20 99 /min [facility] in Arterial blood 08:01:00 by Pulse oximetry Body height 2022-02-19 185.4 cm [facility] 16:00:00 Body weight 2022-02-19 69.945 kg [facility] 16:00:00 BMI 2022-02-19 20.34 kg/m2 [facility] 16:00:00 Systolic blood 2022-02-20 118 mm[Hg] [facility] pressure 08:01:00 Diastolic blood 2022-02-20 82 mm[Hg] [facility] h pressure 08:01:00 Heart rate 2022-02-20 67 /min [facility] 08:01:00 Body temperature 2022-02-20 36.44 Tasia [facility] 08:01:00 Respiratory rate 2022-02-20 17 /min [facility] 08:01:00 Oxygen saturation 2022-02-20 99 /min [facility] in Arterial blood 08:01:00 by Pulse oximetry Body height 2022-02-19 185.4 cm [facility] 16:00:00 Body weight 2022-02-19 69.945 kg [facility] 16:00:00 BMI 2022-02-19 20.34 kg/m2 [facility] 16:00:00 Systolic blood 2022-02-11 98 mm[Hg] [facility] pressure 11:30:00 Diastolic blood 2022-02-11 57 mm[Hg] [facility] h pressure 11:30:00 Heart rate 2022-02-11 62 /min [facility] 11:30:00 Body temperature 2022-02-11 37.17 Tasia [facility] 11:30:00 Respiratory rate 2022-02-11 11 /min [facility] 11:30:00 Oxygen saturation 2022-02-11 98 /min [facility] in Arterial blood 11:30:00 by Pulse oximetry Body height 2022-02-08 185.4 cm [facility] 01:10:00 Body weight 2022-02-08 70.761 kg [facility] 01:10:00 BMI 2022-02-08 20.58 kg/m2 [facility] 01:10:00 Systolic blood 2022-02-11 98 mm[Hg] [facility] pressure 11:30:00 Diastolic blood 2022-02-11 57 mm[Hg] [facility] h pressure 11:30:00 Heart rate 2022-02-11 62 /min [facility] 11:30:00 Body temperature 2022-02-11 37.17 Tasia [facility] 11:30:00 Respiratory rate 2022-02-11 11 /min [facility] 11:30:00 Oxygen saturation 2022-02-11 98 /min [place] [facility] in Arterial blood 11:30:00 by Pulse oximetry Body height 2022-02-08 185.4 cm [facility] 01:10:00 Body weight 2022-02-08 70.761 kg [facility] 01:10:00 BMI 2022-02-08 20.58 kg/m2 [facility] 01:10:00 Systolic blood 2021-09-14 106 mm[Hg] [facility] pressure 03:17:00 [facility] Diastolic blood 2021-09-14 55 mm[Hg] [facility] o f pressure 03:17:00 [facility] Heart rate 2021-09-14 86 /min [facility] 03:17:00 [facility] Body temperature 2021-09-14 36.89 T[facility] 03:17:00 [facility] Respiratory rate 2021-09-14 18 /min [facility] 03:17:00 [facility] Oxygen saturation 2021-09-14 98 /min [facility] in Arterial blood 03:17:00 [facility] P[facility] o[facility] Systolic blood 2021-09-12 90 mm[Hg] [facility] pressure 22:20:00 [facility] Diastolic blood 2021-09-12 66 mm[Hg] [facility] o f pressure 22:20:00 [facility] Heart rate 2021-09-12 97 /min [facility] 22:20:00 [facility] Body temperature 2021-09-12 36.61 [facility] 22:20:00 [facility] Respiratory rate 2021-09-12 16 /min [facility] 22:20:00 [facility] Oxygen saturation 2021-09-12 98 /min [facility] in Arterial blood 22:20:00 [facility] by Pulse oximetry Branch Body weight 2021-09-12 68.04 kg [facility] 20:25:00 [facility] BMI 2021-09-12 19.79 kg/m2 [facility] 20:25:00 [facility] Systolic blood 2021-09-12 103 mm[Hg] [facility] pressure 13:29:00 [facility] Diastolic blood 2021-09-12 67 mm[Hg] [facility] o f pressure 13:29:00 [facility] Heart rate 2021-09-12 91 /min [facility] 13:29:00 [facility] Body temperature 2021-09-12 36.72 T[facility] 13:29:00 [facility] Respiratory rate 2021-09-12 33 /min [facility] 13:29:00 [facility] Oxygen saturation 2021-09-12 98 /min [facility] in Arterial blood 13:29:00 [facility] Pulse oxim[facility] Body weight 2021-09-12 68.04 kg [facility] 12:17:00 [facility] BMI 2021-09-12 19.79 kg/m2 [facility] 12:17:00 [facility] Systolic blood 2021-09-09 100 mm[Hg] [facility] pressure 04:59:00 [facility] Diastolic blood 2021-09-09 60 mm[Hg] [facility] o f pressure 04:59:00 [facility] Heart rate 2021-09-09 85 /min [facility] 04:59:00 [facility] Body temperature 2021-09-09 36.5 Tasia [facility] 04:59:00 [facility] Respiratory rate 2021-09-09 16 /min [facility] 04:59:00 [facility] Body height 2021-09-09 185.4 cm [facility] 04:59:00 [facility] Body weight 2021-09-09 68.04 kg [facility] 04:59:00 [facility] BMI 2021-09-09 19.79 kg/m2 [facility] 04:59:00 [facility] Oxygen saturation 2021-09-09 98 /min [facility] in Arterial blood 04:59:00 [facility] by Pulse oximetry [place] Systolic blood 2021-09-08 129 mm[Hg] [facility] pressure 05:42:00 [facility] Diastolic blood 2021-09-08 69 mm[Hg] [facility] pressure 05:42:00 [facility] Heart rate 2021-09-08 85 /min [facility] 05:42:00 [facility] Respiratory rate 2021-09-08 17 /min [facility] 05:42:00 [facility] Oxygen saturation 2021-09-08 98 /min [facility] in Arterial blood 05:42:00 [facility] by Pulse oximetry [place] Body temperature 2021-09-08 37.44 [facility] 01:22:00 [facility] Body weight 2021-09-08 68 kg [facility] 01:22:00 [facility] BMI 2021-09-08 19.78 kg/m2 [facility] 01:22:00 [facility] Systolic blood 2021-09-06 123 mm[Hg] [facility] pressure 21:33:00 [facility] Diastolic blood 2021-09-06 65 mm[Hg] [facility] f pressure 21:33:00 [facility] Heart rate 2021-09-06 91 /min [facility] 21:33:00 [facility] Body temperature 2021-09-06 36.39 Tasia [facility] 21:33:00 [facility] Respiratory rate 2021-09-06 18 /min [facility] 21:33:00 [facility] Body weight 2021-09-06 68.04 kg [facility] 21:33:00 [facility] BMI 2021-09-06 19.79 kg/m2 [facility] 21:33:00 [facility] Oxygen saturation 2021-09-06 100 /min [facility] in Arterial blood 21:33:00 [facility] Pulse o[facility] Systolic blood 2021-09-05 99 mm[Hg] [facility] pressure 17:16:00 [facility] Diastolic blood 2021-09-05 62 mm[Hg] [facility] f pressure 17:16:00 [facility] Heart rate 2021-09-05 78 /min [facility] 17:16:00 [facility] Body temperature 2021-09-05 36.39 Tasia [facility] 17:16:00 [facility] Respiratory rate 2021-09-05 17 /min [facility] 17:16:00 [facility] Oxygen saturation 2021-09-05 95 /min [facility] in Arterial blood 17:16:00 [facility] Pulse o[facility] Body height 2021-08-31 185.4 cm [facility] 07:29:00 [facility] Body weight 2021-08-31 68.04 kg [facility] 07:29:00 [facility] BMI 2021-08-31 19.79 kg/m2 [facility] 07:29:00 [facility] Systolic blood 2021-09-03 111 mm[Hg] [facility] pressure 15:59:00 [facility] Diastolic blood 2021-09-03 65 mm[Hg] [facility] o f pressure 15:59:00 [facility] Heart rate 2021-09-03 75 /min [facility] 15:59:00 [facility] Body temperature 2021-09-03 35.72 T[facility] 15:59:00 [facility] Respiratory rate 2021-09-03 18 /min [facility] 15:59:00 [facility] Oxygen saturation 2021-09-03 100 /min [facility] in Arterial blood 15:59:00 [facility] Pulse oxim[facility] Body height 2021-08-31 185.4 cm [facility] 07:29:00 [facility] Body weight 2021-08-31 68.04 kg [facility] 07:29:00 [facility] BMI 2021-08-31 19.79 kg/m2 [facility] 07:29:00 [facility] Systolic blood 2021-08-29 111 mm[Hg] [facility] pressure 23:12:00 [facility] Diastolic blood 2021-08-29 73 mm[Hg] [facility] pressure 23:12:00 [facility] Heart rate 2021-08-29 95 /min [facility] 23:12:00 [facility] Body temperature 2021-08-29 37 Tasia [facility] 23:12:00 [facility] Respiratory rate 2021-08-29 18 /min [facility] 23:12:00 [facility] Body weight 2021-08-29 68.04 kg [facility] 23:12:00 [facility] BMI 2021-08-29 19.79 kg/m2 [facility] 23:12:00 [facility] Oxygen saturation 2021-08-29 99 /min [facility] in Arterial blood 23:12:00 [facility] by Pulse oximetry Branch Systolic blood 2021-08-05 92 mm[Hg] [facility] pressure 10:56:00 [facility] Diastolic blood 2021-08-05 75 mm[Hg] [facility] o f pressure 10:56:00 [facility] Heart rate 2021-08-05 67 /min [facility] 10:56:00 [facility] Body temperature 2021-08-05 36.22 Tasia [facility] 10:56:00 [facility] Oxygen saturation 2021-08-05 93 /min [facility] in Arterial blood 10:56:00 [facility] by Pulse oximetry [facility] Respiratory rate 2021-08-05 16 /min [facility] 06:24:00 [facility] Body height 2021-07-30 185.4 cm [facility] 09:49:00 [facility] Body weight 2021-07-30 65.772 kg [facility] 09:49:00 [facility] BMI 2021-07-30 19.13 kg/m2 [facility] 09:49:00 [facility] Systolic blood 2021-07-26 107 mm[Hg] [facility] pressure 17:32:00 [facility] Diastolic blood 2021-07-26 69 mm[Hg] [facility] f pressure 17:32:00 [facility] Heart rate 2021-07-26 70 /min [facility] 17:32:00 [facility] Body temperature 2021-07-26 36.39 Tasia [facility] 17:32:00 [facility] Respiratory rate 2021-07-26 16 /min [facility] 17:32:00 [facility] Oxygen saturation 2021-07-26 96 /min [facility] in Arterial blood 17:32:00 [facility] mariusz by Pulse oximetry Branch Body height 2021-07-23 185.4 cm [facility] 08:40:00 [facility] Body weight 2021-07-23 84.5 kg [facility] 08:40:00 [facility] BMI 2021-07-23 24.58 kg/m2 [facility] 08:40:00 [facility] Systolic blood 2021-06-04 95 mm[Hg] [facility] pressure 16:20:00 [facility] Diastolic blood 2021-06-04 60 mm[Hg] [facility] pressure 16:20:00 [facility] Heart rate 2021-06-04 61 /min [facility] 16:20:00 [facility] Body temperature 2021-06-04 36.17 Tasia [facility] 16:20:00 [facility] Respiratory rate 2021-06-04 18 /min [facility] 16:20:00 [facility] Oxygen saturation 2021-06-04 100 /min [facility] in Arterial blood 16:20:00 [facility] mariusz by Pulse oximetry Branch Body weight 2021-06-01 65.772 kg [facility] of 19:00:00 [facility] BMI 2021-06-01 19.13 kg/m2 [facility] of 19:00:00 [facility] Body height 2021-05-31 185.4 cm [facility] 22:12:00 [facility] Systolic blood 2021-05-21 101 mm[Hg] [facility] pressure 20:21:00 [facility] Diastolic blood 2021-05-21 68 mm[Hg] [facility] f pressure 20:21:00 [facility] Heart rate 2021-05-21 74 /min [facility] 20:21:00 [facility] Body temperature 2021-05-21 36.56 T[facility] 20:21:00 [facility] Respiratory rate 2021-05-21 18 /min [facility] 20:21:00 [facility] Oxygen saturation 2021-05-21 99 /min [facility] in Arterial blood 20:21:00 [facility] Pulse oxim[facility] Body height 2021-05-21 185.4 cm [facility] 00:15:00 [facility] Body weight 2021-05-21 65.772 kg [facility] of 00:15:00 [facility] BMI 2021-05-21 19.13 kg/m2 [facility] 00:15:00 [facility] Systolic blood 2021-05-09 101 mm[Hg] [facility] pressure 16:32:00 [facility] Diastolic blood 2021-05-09 70 mm[Hg] [facility] o f pressure 16:32:00 [facility] Heart rate 2021-05-09 69 /min [facility] 16:32:00 [facility] Body temperature 2021-05-09 36.72 T[facility] 16:32:00 [facility] Respiratory rate 2021-05-09 16 /min [facility] 16:32:00 [facility] Oxygen saturation 2021-05-09 99 /min [facility] in Arterial blood 16:32:00 [facility] by Pulse oximetry [place] Body height 2021-05-08 185.4 cm [place] of 05:48:00 [facility] Body weight 2021-05-08 80.196 kg University of 05:48:00 [facility] BMI 2021-05-08 23.33 kg/m2 University of 05:48:00 [facility] Heart rate 2020-09-27 89 /min [facility] of 04:25:00 [facility] Respiratory rate 2020-09-27 20 /min University 04:25:00 [facility] Oxygen saturation 2020-09-27 99 /min [facility] in Arterial blood 04:25:00 [facility] by Pulse oximetry [place] Systolic blood 2020-09-27 103 mm[Hg] [facility] pressure 04:02:00 [facility] Diastolic blood 2020-09-27 78 mm[Hg] [facility] o f pressure 04:02:00 [facility] Body temperature 2020-09-27 36.72 T[facility] 04:00:00 [facility] Body weight 2020-09-26 79.379 kg University of 22:35:00 [facility] BMI 2020-09-26 23.09 kg/m2 [facility] of 22:35:00 [facility] Systolic blood 2020-08-24 105 mm[Hg] [facility] of pressure 17:24:00 [facility] Diastolic blood 2020-08-24 64 mm[Hg] [facility] o f pressure 17:24:00 [facility] Heart rate 2020-08-24 83 /min [facility] of 17:24:00 [facility] Body temperature 2020-08-24 36.56 Tasia [facility] 17:24:00 [facility] Respiratory rate 2020-08-24 16 /min [facility] of 17:24:00 [facility] Oxygen saturation 2020-08-24 98 /min [facility] in Arterial blood 17:24:00 [facility] mariusz by Pulse oximetry Branch Body height 2020-08-23 185.4 cm [facility] of 03:19:00 [facility] Body weight 2020-08-23 79.379 kg University of 03:19:00 [facility] BMI 2020-08-23 23.09 kg/m2 [facility] of 03:19:00 [facility] Systolic blood 2020-07-10 126 mm[Hg] [facility] of pressure 01:32:00 [facility] Diastolic blood 2020-07-10 67 mm[Hg] [facility] o f pressure 01:32:00 [facility] Heart rate 2020-07-10 92 /min [facility] :32:00 [facility] Body temperature 2020-07-10 37.17 Tasia [place] [facility] :32:00 [facility] Respiratory rate 2020-07-10 16 /min University :32:00 [facility] Oxygen saturation 2020-07-10 100 /min [facility] in Arterial blood 01:32:00 [facility] by Pulse oximetry [facility] Body height 2020-07-09 154.9 cm University of 22:23:00 [facility] Body weight 2020-07-09 68.04 kg [facility] of 22:23:00 [facility] BMI 2020-07-09 28.34 kg/m2 [facility] of 22:23:00 [facility] Systolic blood 2020-06-05 106 mm[Hg] [facility] pressure 15:00:00 [facility] Diastolic blood 2020-06-05 72 mm[Hg] [facility] o f pressure 15:00:00 [facility] Heart rate 2020-06-05 84 /min [facility] of 15:00:00 [facility] Respiratory rate 2020-06-05 18 /min [facility] 15:00:00 [facility] Oxygen saturation 2020-06-05 100 /min [facility] in Arterial blood 15:00:00 [facility] mariusz by Pulse oximetry [facility] Body temperature 2020-06-05 36.61 Tasia [facility] 14:54:52 [facility] Body weight 2020-06-05 65.772 kg University of 11:48:00 [facility] BMI 2020-06-05 19.13 kg/m2 [facility] of 11:48:00 [facility] Systolic blood 2020-06-04 130 mm[Hg] [facility] of pressure 18:30:00 [facility] Diastolic blood 2020-06-04 84 mm[Hg] [facility] o f pressure 18:30:00 [facility] Heart rate 2020-06-04 72 /min [facility] of 18:30:00 [facility] Body temperature 2020-06-04 36.72 Tasia [facility] 18:30:00 [facility] Respiratory rate 2020-06-04 16 /min [facility] of 18:30:00 [facility] Oxygen saturation 2020-06-04 98 /min [facility] in Arterial blood 18:30:00 [facility] by Pulse oximetry [place] Systolic blood 2020-05-31 90 mm[Hg] [facility] of pressure 19:59:00 [facility] Diastolic blood 2020-05-31 59 mm[Hg] University o f pressure 19:59:00 [facility] Heart rate 2020-05-31 88 /min [facility] of 19:59:00 [facility] Body temperature 2020-05-31 36.78 Tasia [facility] 19:59:00 [facility] Respiratory rate 2020-05-31 16 /min [facility] of 19:59:00 [facility] Oxygen saturation 2020-05-31 98 /min [facility] in Arterial blood 19:59:00 [facility] by Pulse oximetry Branch Body height 2020-05-30 185.4 cm University of 18:29:00 [facility] Body weight 2020-05-30 69.5 kg weighed in bed University of 18:29:00 [facility] BMI 2020-05-30 20.21 kg/m2 University of 18:29:00 [facility] Systolic blood 2020-05-22 100 mm[Hg] [facility] pressure 04:38:00 [facility] Diastolic blood 2020-05-22 71 mm[Hg] University o f pressure 04:38:00 [facility] Heart rate 2020-05-22 90 /min [facility] of 04:38:00 [facility] Respiratory rate 2020-05-22 18 /min [place] [facility] 04:38:00 [facility] Oxygen saturation 2020-05-22 97 /min [facility] in Arterial blood 04:38:00 [facility] by Pulse oximetry Branch Body temperature 2020-05-22 36.83 Tasia [facility] 02:02:11 [facility] Body height 2020-05-22 185.4 cm [facility] of 01:59:00 [facility] Body weight 2020-05-22 65.772 kg [facility] of 01:59:00 [facility] BMI 2020-05-22 19.13 kg/m2 [facility] of 01:59:00 [facility] Systolic blood 2020-05-20 95 mm[Hg] [facility] of pressure 18:33:34 [facility] Diastolic blood 2020-05-20 62 mm[Hg] University o f pressure 18:33:34 [facility] Heart rate 2020-05-20 86 /min [facility] of 18:33:34 [facility] Respiratory rate 2020-05-20 20 /min [facility] of 18:33:34 [facility] Oxygen saturation 2020-05-20 98 /min University of in Arterial blood 18:33:34 [facility] by Pulse oximetry Branch Body temperature 2020-05-20 37 Tasia University of 12:02:00 [facility] Body weight 2020-05-20 65.8 kg University of 12:02:00 [facility] BMI 2020-05-20 19.14 kg/m2 University of 12:02:00 [facility] Systolic blood 2020-05-20 101 mm[Hg] University of pressure 10:58:00 [facility] Diastolic blood 2020-05-20 56 mm[Hg] University o f pressure 10:58:00 [facility] Heart rate 2020-05-20 79 /min University of 10:58:00 [facility] Body temperature 2020-05-20 37 Tasia University of 10:58:00 [facility] Respiratory rate 2020-05-20 16 /min University of 10:58:00 [facility] Oxygen saturation 2020-05-20 99 /min University of in Arterial blood 10:58:00 [facility] by Pulse oximetry Branch Body height 2020-05-20 185.4 cm University of 02:36:00 [facility] Body weight 2020-05-20 65.772 kg University of 02:36:00 [facility] BMI 2020-05-20 19.13 kg/m2 University of 02:36:00 [facility] Systolic blood 2020-05-12 93 mm[Hg] University of pressure 17:02:00 [facility] Diastolic blood 2020-05-12 61 mm[Hg] University o f pressure 17:02:00 [facility] Body temperature 2020-05-12 37.06 Tasia University of 17:02:00 [facility] Heart rate 2020-05-12 74 /min University of 09:00:00 [facility] Respiratory rate 2020-05-12 18 /min University of 09:00:00 [facility] Oxygen saturation 2020-05-12 95 /min [facility] in Arterial blood 09:00:00 [place] [facility] Pulse oximetry [facility] Body height 2020-05-05 185.4 cm University of 09:05:00 [facility] Body weight 2020-05-05 65.772 kg University of 09:05:00 [facility] BMI 2020-05-05 19.13 kg/m2 University of 09:05:00 [facility] Systolic blood 2020-05-03 107 mm[Hg] University of pressure 04:30:00 [facility] Diastolic blood 2020-05-03 62 mm[Hg] University o f pressure 04:30:00 [facility] Heart rate 2020-05-03 105 /min University of 04:30:00 [facility] Body temperature 2020-05-03 37.22 Tasia University of 04:30:00 [facility] Respiratory rate 2020-05-03 14 /min University of 04:30:00 [facility] Body height 2020-05-03 185.4 cm University of 04:30:00 [facility] Body weight 2020-05-03 65.772 kg University of 04:30:00 [facility] BMI 2020-05-03 19.13 kg/m2 University of 04:30:00 [facility] Systolic blood 2020-05-02 105 mm[Hg] University of pressure 12:46:00 [facility] Diastolic blood 2020-05-02 57 mm[Hg] University o f pressure 12:46:00 [facility] Heart rate 2020-05-02 79 /min University of 12:46:00 [facility] Body temperature 2020-05-02 36.28 Tasia University of 12:46:00 [facility] Respiratory rate 2020-05-02 16 /min University of 12:46:00 [facility] Oxygen saturation 2020-05-02 98 /min [facility] in Arterial blood 12:46:00 [place] [facility] by Pulse oximetry Branch Body height 2020-04-16 185.4 cm University of 20:11:00 [facility] Body weight 2020-04-16 79.379 kg University of 20:11:00 [facility] BMI 2020-04-16 23.09 kg/m2 University of 20:11:00 [facility] Respiratory rate 2020-04-06 12 /min University of 16:20:00 [facility] Systolic blood 2020-03-28 125 mm[Hg] University of pressure 16:00:00 [facility] Diastolic blood 2020-03-28 87 mm[Hg] University o f pressure 16:00:00 [facility] Heart rate 2020-03-28 74 /min University of 16:00:00 [facility] Body temperature 2020-03-28 36.44 Tasia University of 16:00:00 [facility] Respiratory rate 2020-03-28 18 /min University of 16:00:00 [facility] Oxygen saturation 2020-03-28 100 /min [facility] of in Arterial blood 16:00:00 [facility] by Pulse oximetry Branch Body height 2020-03-26 185.4 cm University of 03:49:00 [facility] Body weight 2020-03-26 74.844 kg University of 03:49:00 [facility] BMI 2020-03-26 21.77 kg/m2 University of 03:49:00 [facility] Systolic blood 2020-03-05 107 mm[Hg] University of pressure 16:00:00 [facility] Diastolic blood 2020-03-05 67 mm[Hg] University o f pressure 16:00:00 [facility] Heart rate 2020-03-05 56 /min University of 16:00:00 [facility] Body temperature 2020-03-05 36.5 Tasia University of 16:00:00 [facility] Respiratory rate 2020-03-05 18 /min University of 16:00:00 [facility] Oxygen saturation 2020-03-05 100 /min [facility] of in Arterial blood 16:00:00 [facility] mariusz by Pulse oximetry Branch Body height 2020-03-03 185.4 cm University of 05:49:00 [facility] Body weight 2020-03-03 71.668 kg University of 05:49:00 [facility] BMI 2020-03-03 20.85 kg/m2 University of 05:49:00 [facility] Systolic blood 2020-02-27 100 mm[Hg] University of pressure 21:12:00 [facility] Diastolic blood 2020-02-27 74 mm[Hg] University o f pressure 21:12:00 [facility] Heart rate 2020-02-27 90 /min University of 21:12:00 [facility] Body temperature 2020-02-27 35.78 Tasia University of 21:12:00 [facility] Respiratory rate 2020-02-27 19 /min University of 21:12:00 [facility] Oxygen saturation 2020-02-27 99 /min [facility] of in Arterial blood 21:12:00 [facility] mariusz by Pulse oximetry Branch Body weight 2020-02-26 71.215 kg University of 23:05:00 [facility] BMI 2020-02-26 20.71 kg/m2 University of 23:05:00 [facility] Systolic blood 2020-02-26 132 mm[Hg] University of pressure 07:43:00 [facility] Diastolic blood 2020-02-26 71 mm[Hg] University o f pressure 07:43:00 [facility] Heart rate 2020-02-26 82 /min University of 07:43:00 [facility] Respiratory rate 2020-02-26 18 /min University of 07:43:00 [facility] Oxygen saturation 2020-02-26 100 /min [facility] of in Arterial blood 07:43:00 [facility] by Pulse oximetry Branch Body temperature 2020-02-26 36.94 Tasia University of 04:57:00 [facility] Body height 2020-02-26 185.4 cm University of 02:30:00 [facility] Body weight 2020-02-26 68.04 kg University of 02:30:00 [facility] BMI 2020-02-26 19.79 kg/m2 University of 02:30:00 [facility] Systolic blood 2020-02-05 100 mm[Hg] University of pressure 16:00:00 [facility] Diastolic blood 2020-02-05 61 mm[Hg] University o f pressure 16:00:00 [facility] Heart rate 2020-02-05 60 /min University of 16:00:00 [facility] Body temperature 2020-02-05 36.67 Tasia University of 16:00:00 [facility] Respiratory rate 2020-02-05 17 /min University of 16:00:00 [facility] Oxygen saturation 2020-02-05 98 /min [facility] of in Arterial blood 16:00:00 [facility] mariusz by Pulse oximetry Branch Body height 2020-01-28 185.4 cm University of 23:13:00 [facility] Body weight 2020-01-28 68.04 kg University of 23:13:00 [facility] BMI 2020-01-28 19.79 kg/m2 University of 23:13:00 [facility] Systolic blood 2020-02-05 100 mm[Hg] University of pressure 16:00:00 [facility] Diastolic blood 2020-02-05 61 mm[Hg] University o f pressure 16:00:00 [facility] Heart rate 2020-02-05 60 /min University of 16:00:00 [facility] Body temperature 2020-02-05 36.67 Tasia University of 16:00:00 [facility] Respiratory rate 2020-02-05 17 /min University of 16:00:00 [facility] Oxygen saturation 2020-02-05 98 /min [facility] in Arterial blood 16:00:00 [place] [facility] Pulse oximetry [facility] Body height 2020-01-28 185.4 cm University of 23:13:00 [facility] Body weight 2020-01-28 68.04 kg University of 23:13:00 [facility] BMI 2020-01-28 19.79 kg/m2 University of 23:13:00 [facility] Systolic blood 2020-01-27 114 mm[Hg] University of pressure 00:32:00 [facility] Diastolic blood 2020-01-27 66 mm[Hg] University o f pressure 00:32:00 [facility] Heart rate 2020-01-27 73 /min University of 00:32:00 [facility] Body temperature 2020-01-27 36.67 Tasia University of 00:32:00 [facility] Respiratory rate 2020-01-27 18 /min University of 00:32:00 [facility] Oxygen saturation 2020-01-27 97 /min [facility] in Arterial blood 00:32:00 [place] [facility] by Pulse oximetry Branch Body height 2020-01-24 185.4 cm University of 23:55:00 [facility] Body weight 2020-01-24 68.04 kg University of 23:55:00 [facility] BMI 2020-01-24 19.79 kg/m2 University of 23:55:00 [facility] Systolic blood 2020-01-27 114 mm[Hg] University of pressure 00:32:00 [facility] Diastolic blood 2020-01-27 66 mm[Hg] University o f pressure 00:32:00 [facility] Heart rate 2020-01-27 73 /min University of 00:32:00 [facility] Body temperature 2020-01-27 36.67 Tasia University of 00:32:00 [facility] Respiratory rate 2020-01-27 18 /min University of 00:32:00 [facility] Oxygen saturation 2020-01-27 97 /min [facility] in Arterial blood 00:32:00 [facility] by Pulse oximetry Branch Body height 2020-01-24 185.4 cm University of :55:00 [facility] Body weight 2020-01-24 68.04 kg University of :55:00 [facility] BMI 2020-01-24 19.79 kg/m2 University of 23:55:00 [facility] Body temperature 2019-12-13 36.72 Tasia [place] [facility] 02:56:16 [facility] Systolic blood 2019-12-13 114 mm[Hg] University of pressure :57:00 [facility] Diastolic blood 2019-12-13 77 mm[Hg] University o f pressure :57:00 [facility] Heart rate 2019-12-13 75 /min [place] [facility] :57:00 [facility] Respiratory rate 2019-12-13 20 /min University of :57:00 [facility] Body height 2019-12-13 185.4 cm [place] [facility] :57:00 [facility] Body weight 2019-12-13 68.04 kg [place] [facility] :57:00 [facility] BMI 2019-12-13 19.79 kg/m2 University of :57:00 [facility] Oxygen saturation 2019-12-13 97 /min [place] in Arterial blood 01:57:00 [facility] by Pulse oximetry Branch Body temperature 2019-12-13 36.72 Tasia [place] [facility] 02:56:16 [facility] Systolic blood 2019-12-13 114 mm[Hg] University of pressure :57:00 [facility] Diastolic blood 2019-12-13 77 mm[Hg] University o f pressure 01:57:00 [facility] Heart rate 2019-12-13 75 /min University of :57:00 [facility] Respiratory rate 2019-12-13 20 /min University of :57:00 [facility] Body height 2019-12-13 185.4 cm University of :57:00 [facility] Body weight 2019-12-13 68.04 kg University of :57:00 [facility] BMI 2019-12-13 19.79 kg/m2 University 01:57:00 [facility] Oxygen saturation 2019-12-13 97 /min University in Arterial blood 01:57:00 [facility] by Pulse oximetry Branch Systolic blood 2022-03-13 94 mm[Hg] [facility] pressure 15:33:00 Diastolic blood 2022-03-13 62 mm[Hg] [facility] h pressure 15:33:00 Heart rate 2022-03-13 109 /min [facility] 15:33:00 Body temperature 2022-03-[address] [facility] th 15:33:00 Respiratory rate 2022-03-13 20 /min [facility] 15:33:00 Body height 2022-03-13 185.4 cm [facility] 15:33:00 Body weight 2022-03-13 66.679 kg [facility] 15:33:00 BMI 2022-03-13 19.39 kg/m2 [facility] 15:33:00 Oxygen saturation 2022-03-13 100 /[facility] Ar[facility] 15:33:00 by Pulse oximetry Systolic blood 2022-03-09 107 mm[Hg] [facility] pressure 11:00:00 [facility] Diastolic blood 2022-03-09 66 mm[Hg] [facility] pressure 11:00:00 [facility] Heart rate 2022-03-09 58 /min [facility] 11:00:00 [facility] Body temperature 2022-03-[address] [facility] 11:00:00 [facility] Respiratory rate 2022-03-09 16 /min [facility] 11:00:00 [facility] Oxygen saturation 2022-03-09 100 /min [facility] in Arterial blood 11:00:00 [facility] nter by Pulse oximetry Body height 2022-03-[address] [facility] 12:05:00 [facility] Body weight 2022-03-[address] [facility] 12:05:00 [facility] BMI 2022-03-06 19.13 kg/m2 [facility] 12:05:00 [facility] Procedures Procedure Date / Time Performing Clinician Source Performed EKG-12 LEAD 2023-03-20 22:24:24 Sabi Robledo o f [facility] LACTIC ACID WHOLE BLOOD 2023-03-20 20:41:00 Robledo, [facility] CREATINE KINASE 2023-03-20 20:27:00 Shy [facility] LIPASE 2023-03-20 20:27:00 Shy [facility] COMP. METABOLIC PANEL 2023-03-20 20:27:00 Shy [facility] ([id number]) Medical Branch ETHANOL 2023-03-20 20:27:00 Shy [facility] CBC WITH DIFF 2023-03-20 20:27:00 Shy [facility] EXTERNAL PROVIDER RECORDS 2023-02-12 05:01:00 Doctor Unassigned, [facility] [place] [facility] URINE DRUG (IMMUNOASSAY) - 2023-01-28 11:00:00 [facility] COMPREHENSIVE DRUG SCREEN Sadiq Medica l Branch MAGNESIUM 2023-01-28 10:49:00 [facility] BASIC METABOLIC PANEL (NA, 2023-01-28 10:49:00 Kodi Gonzalez ii [facility] K, CL, CO2, GLUCOSE, BUN, Medica l Branch CREATININE, CA) CBC WITH DIFF 2023-01-28 10:49:00 [facility] PHOSPHORUS 2023-01-27 22:43:00 [facility] HEPATIC FUNCTION PANEL 2023-01-27 22:43:00 [facility] ([id number]) (ALB,T.PRO,BILI [facility] T,BU/BC,ALT,AST,ALK PHOS) BASIC METABOLIC PANEL (NA, 2023-01-27 22:43:00 [facility] K, CL, CO2, GLUCOSE, BUN, [facility] CREATININE, CA) CBC WITH DIFF 2023-01-27 22:43:00 [facility] GLYCOSYLATED HEMOGLOBIN 2023-01-27 22:43:00 [facility] (A1C) [facility] URINALYSIS 2023-01-27 02:30:00 Lamont Hilton [facility] BASIC METABOLIC PANEL (NA, 2022-12-07 15:38:00 Robb Flores [facility] K, CL, CO2, GLUCOSE, BUN, Medica l Branch CREATININE, CA) XR KUB 2022-12-06 02:15:02 Kodi Gonzalez [facility] ILEOSTOMY TAKEDOWN 2022-12-04 17:34:00 Phatak, [facility] ANASTOMOSIS BOWEL 2022-12-04 17:34:00 Phatak, [facility] COLONOSCOPY 2022-12-04 17:34:00 P[facility]ak, [facility] ILEOSTOMY TAKEDOWN 2022-12-04 17:34:00 Phatak, [facility] ANASTOMOSIS BOWEL 2022-12-04 17:34:00 Phatak, [facility] COLONOSCOPY 2022-12-04 17:34:00 Phatak, [facility] o f [facility] MAGNESIUM 2022-12-04 10:19:00 Gayatri Pyle [facility] BASIC METABOLIC PANEL (NA, 2022-12-04 10:19:00 Gayatri Pyle [facility] K, CL, CO2, GLUCOSE, BUN, Medica l Branch CREATININE, CA) CBC WITH DIFF 2022-12-04 10:19:00 Gayatri Pyle [facility] PROTHROMBIN TIME / INR 2022-12-04 10:19:00 Gayatri Pyle [facility] ACTIVATED PARTIAL THRMPLAS 2022-12-04 10:19:00 Gayatri Pyle [facility] MAGNESIUM 2022-12-04 10:19:00 Gayatri Pyle [facility] BASIC METABOLIC PANEL (NA, 2022-12-04 10:19:00 Gayatri Pyle [facility] K, CL, CO2, GLUCOSE, BUN, Medica l Branch CREATININE, CA) CBC WITH DIFF 2022-12-04 10:19:00 Gayatri Pyle [facility] PROTHROMBIN TIME / INR 2022-12-04 10:19:00 Gayatri Pyle [facility] ACTIVATED PARTIAL THRMPLAS 2022-12-04 10:19:00 Gayatri Pyle [facility] MAGNESIUM 2022-12-03 10:42:00 Gayatri Pyle [facility] BASIC METABOLIC PANEL (NA, 2022-12-03 10:42:00 Lashanda, Gayatri pope [facility] K, CL, CO2, GLUCOSE, BUN, Medica l Branch CREATININE, CA) CBC WITH DIFF 2022-12-03 10:42:00 Gayatri Pyle [facility] MAGNESIUM 2022-12-03 10:42:00 Gayatri Pyle [facility] BASIC METABOLIC PANEL (NA, 2022-12-03 10:42:00 Lashanda, Gayatri pope [facility] K, CL, CO2, GLUCOSE, BUN, Medica l Branch CREATININE, CA) CBC WITH DIFF 2022-12-03 10:42:00 Gayatri Pyle [facility] HB ABO GROUPING 2022-12-02 21:21:00 Mark [facility] HB ABO GROUPING 2022-12-02 21:21:00 Mark [facility] PHOSPHORUS 2022-12-02 09:47:00 Gayatri Pyle [facility] MAGNESIUM 2022-12-02 09:47:00 Dhara [facility] BASIC METABOLIC PANEL (NA, 2022-12-02 09:47:00 Lisa Jules [facility] K, CL, CO2, GLUCOSE, BUN, C. Medica l Branch CREATININE, CA) PHOSPHORUS 2022-12-02 09:47:00 Gayatri Pyle [facility] MAGNESIUM 2022-12-02 09:47:00 Dhara [facility] BASIC METABOLIC PANEL (NA, 2022-12-02 09:47:00 Lisa Jules [facility] K, CL, CO2, GLUCOSE, BUN, C. Medica l Branch CREATININE, CA) TRANSTHORACIC ECHO (TTE) 2022-12-01 14:48:00 DosKristofer conley [facility] COMPLETE W/ CONTRAST [facility] TRANSTHORACIC ECHO (TTE) 2022-12-01 14:48:00 DosKristofer conley [facility] W/ CONTRAST [facility] MAGNESIUM 2022-12-01 10:03:00 Gayatri Pyle [facility] BASIC METABOLIC PANEL (NA, 2022-12-01 10:03:00 Lashanda, Gayatri pope [facility] K, CL, CO2, GLUCOSE, BUN, Medica l Branch CREATININE, CA) CBC WITH DIFF 2022-12-01 10:03:00 Gayatri Pyle [facility] MAGNESIUM 2022-12-01 10:03:00 Gayatri Pyle [facility] BASIC METABOLIC PANEL (NA, 2022-12-01 10:03:00 Lashanda, Gayatri pope [facility] K, CL, CO2, GLUCOSE, BUN, Medica l Branch CREATININE, CA) CBC WITH DIFF 2022-12-01 10:03:00 Gayatri Pyle [facility] MAGNESIUM 2022-11-30 09:48:00 Dhara [facility] BASIC METABOLIC PANEL (NA, 2022-11-30 09:48:00 Lisa Jules [facility] K, CL, CO2, GLUCOSE, BUN, C. Medica l Branch CREATININE, CA) CBC WITH DIFF 2022-11-30 09:48:00 Dhara [facility] MAGNESIUM 2022-11-30 09:48:00 Dhara [facility] BASIC METABOLIC PANEL (NA, 2022-11-30 09:48:00 Lisa Jules [facility] K, CL, CO2, GLUCOSE, BUN, C. Medica l Branch CREATININE, CA) CBC WITH DIFF 2022-11-30 09:48:00 Dhara [facility] LACTIC ACID WHOLE BLOOD 2022-11-29 13:40:[address] [facility] LACTIC ACID WHOLE BLOOD 2022-11-29 13:40:[address] [facility] MAGNESIUM 2022-11-29 08:43:00 PyleGayatri hatfield [facility] BASIC METABOLIC PANEL (NA, 2022-11-29 08:43:00 Pyle, Gayatri pope [facility] K, CL, CO2, GLUCOSE, BUN, Medica l Branch CREATININE, CA) CBC WITH DIFF 2022-11-29 08:43:00 PyleGayatri [facility] MAGNESIUM 2022-11-29 08:43:00 PyleGayatri [facility] BASIC METABOLIC PANEL (NA, 2022-11-29 08:43:00 Pyle, Gayatri Kowalski blessing [facility] K, CL, CO2, GLUCOSE, BUN, Medica l Branch CREATININE, CA) CBC WITH DIFF 2022-11-29 08:43:00 Gayatri Pyle [facility] MAGNESIUM 2022-11-28 21:15:00 PyleGayatri hatfield [facility] BASIC METABOLIC PANEL (NA, 2022-11-28 21:15:00 Pyle, Gayatri Kowalski blessing [facility] K, CL, CO2, GLUCOSE, BUN, Medica l Branch CREATININE, CA) CBC WITH DIFF 2022-11-28 21:15:00 Gayatri Pyle [facility] MAGNESIUM 2022-11-28 21:15:00 Gayatri Pyle [facility] BASIC METABOLIC PANEL (NA, 2022-11-28 21:15:00 PyleGayatri hatfield blessing [facility] K, CL, CO2, GLUCOSE, BUN, Medica l Branch CREATININE, CA) CBC WITH DIFF 2022-11-28 21:15:00 Gayatri Pyle [facility] PREALBUMIN, SERUM 2022-11-28 07:25:00 Grant Cheema formerly [facility] ALBUMIN 2022-11-28 07:25:00 Grant Cheema [facility] MAGNESIUM 2022-11-28 07:25:00 [facility] BASIC METABOLIC PANEL (NA, 2022-11-28 07:25:00 Varsha Meza [facility] K, CL, CO2, GLUCOSE, BUN, Christos Morin [facility] CREATININE, CA) PREALBUMIN, SERUM 2022-11-28 07:25:00 Grant Cheema [facility] ALBUMIN 2022-11-28 07:25:00 Grant Cheema [facility] MAGNESIUM 2022-11-28 07:25:00 Varsha Meza [facility] BASIC METABOLIC PANEL (NA, 2022-11-28 07:25:00 Varsha Meza [facility] K, CL, CO2, GLUCOSE, BUN, [facility] CREATININE, CA) LACTIC ACID WHOLE BLOOD 2022-11-27 20:46:00 Varsha Meza [facility] LACTIC ACID WHOLE BLOOD 2022-11-27 20:46:00 Varsha Meza [facility] BASIC METABOLIC PANEL (NA, 2022-11-27 18:36:00 Dwain Junior [facility] K, CL, CO2, GLUCOSE, [facility], [facility]) BASIC METABOLIC PANEL (NA, 2022-11-27 18:36:00 Dwain Junior [facility] K, CL, CO2, GLUCOSE, BUN, Medica l Branch CREATININE, CA) URINALYSIS 2022-11-27 15:58:00 Dwain Junior [facility] CREATININE, URINE RANDOM 2022-11-27 15:58:00 Varsha Meza [facility] [place] UREA NITROGEN, URINE 2022-11-27 15:58:00 Varsha Meza [facility] RANDOM [facility] SODIUM, URINE RANDOM 2022-11-27 15:58:00 Varsha Meza [facility] URINALYSIS 2022-11-27 15:58:00 Dwain Junior [facility] CREATININE, URINE RANDOM 2022-11-27 15:58:00 Varsha Meza [facility] [place] UREA NITROGEN, URINE 2022-11-27 15:58:00 [facility] SODIUM, URINE RANDOM 2022-11-27 15:58:00 Varsha Meza [facility] HB ECG ROUTINE & RHYTHM 2022-11-27 14:21:43 Dwain Junior [facility] HB ECG ROUTINE & RHYTHM 2022-11-27 14:21:43 Dwain Junior [facility] LACTIC ACID WHOLE BLOOD 2022-11-27 14:01:00 Dwain Junior [facility] LACTIC ACID WHOLE BLOOD 2022-11-27 14:01:00 Dwain Junior [facility] BLOOD CULTURE SCREEN 2022-11-27 14:00:00 Dwain Junior [facility] PHOSPHORUS 2022-11-27 14:00:00 Dwain Junior [facility] MAGNESIUM 2022-11-27 14:00:00 Dwain Junior [facility] TROPONIN I 2022-11-27 14:00:00 Dwain Junior [facility] COMP. METABOLIC PANEL 2022-11-27 14:00:00 Dwain Junior [facility] ([id number]) [facility] CBC WITH DIFF 2022-11-27 14:00:00 Dwain Junior [facility] BLOOD CULTURE SCREEN 2022-11-27 14:00:00 Dwain Junior [facility] PHOSPHORUS 2022-11-27 14:00:00 [facility] MAGNESIUM 2022-11-27 14:00:00 Dwain Junior [facility] TROPONIN I 2022-11-27 14:00:00 Dwain Junior [facility] COMP. METABOLIC PANEL 2022-11-27 14:00:00 Dwain Juniro [facility] ([id number]) [facility] CBC WITH DIFF 2022-11-27 14:00:00 Dwain Junior [facility] XR CHEST 1 VW 2022-11-27 13:42:00 Dwain Junior [facility] XR CHEST 1 VW 2022-11-27 13:42:00 Dwain Junior [facility] HOSPITAL ADMISSION 2022-11-27 05:01:00 Doctor Unassigned, [facility] HOSPITAL ADMISSION 2022-11-27 05:01:00 Doctor Unassigned, [facility] MAGNESIUM 2022-11-22 09:24:00 Myke [facility] BASIC METABOLIC PANEL (NA, 2022-11-22 09:24:00 Myke [facility] K, CL, CO2, GLUCOSE, BUN, Medica l Branch CREATININE, CA) CBC WITH DIFF 2022-11-22 09:24:00 Wilfred Stringer [facility] MAGNESIUM 2022-11-21 05:09:00 Micki Ramon [facility] BASIC METABOLIC PANEL (NA, 2022-11-21 05:09:00 Micki Ramon [facility] K, CL, CO2, GLUCOSE, BUN, Medica l Branch CREATININE, CA) CBC WITH DIFF 2022-11-21 05:09:00 [facility] + LACTIC ACID 2022-11-21 05:07:00 Dana Cox Un [facility] LACTIC ACID WHOLE BLOOD 2022-11-20 14:51:00 Wilfred Stringer [facility] LACTIC ACID WHOLE BLOOD 2022-11-20 11:33:00 Wilfred Stringer [facility] ALBUMIN 2022-11-20 09:45:00 Tristen [facility] MAGNESIUM 2022-11-20 09:45:00 Wilfred Stringer [facility] CORTISOL AM 2022-11-20 09:45:00 Zahraa Stringernathan [facility] THYROID STIMULATING 2022-11-20 09:45:00 [facility] BASIC METABOLIC PANEL (NA, 2022-11-20 09:45:00 Myke [facility] K, CL, CO2, GLUCOSE, BUN, Medica [facility] CREATININE, CA) CBC WITH DIFF 2022-11-20 09:45:00 Zahraa Stringernathan [facility] FREE T4 2022-11-20 00:40:00 Tristen [facility] BASIC METABOLIC PANEL (NA, 2022-11-20 00:40:00 [facility], CL, CO2, GLUCOSE, BUN, [facility] CREATININE, CA) OSMOLALITY URINE 2022-11-19 23:34:00 Tristen [facility] CREATININE, URINE RANDOM 2022-11-19 23:34:00 Wilfred Stringer [facility] SODIUM, URINE RANDOM 2022-11-19 23:34:00 Wilfred Stringer [facility] HB ECG ROUTINE & RHYTHM 2022-11-19 23:15:08 Wilfred Stringer [facility] BASIC METABOLIC PANEL (NA, 2022-11-19 20:05:00 [facility], CL, CO2, GLUCOSE, BUN, [facility] CREATININE, CA) MAGNESIUM 2022-11-19 15:58:00 Constantin Perez [facility] COMP. METABOLIC PANEL 2022-11-19 15:58:00 [id number] Medical Branch ETHANOL 2022-11-19 15:58:00 Constantin Perez [facility] CBC WITH DIFF 2022-11-19 15:58:00 Constantin Perez [facility] COVID-19 (ID NOW RAPID 2022-11-19 15:25:00 Constantin [facility] TEST[facility] Medical Branch LAB ONLY COVID 2022-11-19 15:25:00 Constantin Perez [facility] INTERPRETATION [facility] MAGNESIUM 2022-11-06 09:44:00 Shanell José [facility] BASIC METABOLIC PANEL (NA, 2022-11-06 09:44:00 Shanell José [facility] [place] K, CL, CO2, GLUCOSE, BUN, Medica l Branch CREATININE, CA) CBC WITH DIFF 2022-11-06 09:44:00 Shanell José [facility] CORTISOL AM 2022-11-05 13:40:00 Shanell José [facility] BASIC METABOLIC PANEL (NA, 2022-11-05 09:49:00 Shanell José [facility] [place] K, CL, CO2, GLUCOSE, BUN, Medica l Branch CREATININE, CA) CBC WITH DIFF 2022-11-05 09:49:00 Shanell José [facility] BASIC METABOLIC PANEL (NA, 2022-11-05 03:00:00 Shanell José [facility] [place] K, CL, CO2, GLUCOSE, BUN, Medica l Branch CREATININE, CA) SODIUM 2022-11-04 18:26:00 Shanell José [facility] BASIC METABOLIC PANEL (NA, 2022-11-04 18:26:00 Micki Ramon [facility] [place] K, CL, CO2, GLUCOSE, BUN, Medica l Branch CREATININE, CA) OSMOLALITY, SERUM OR 2022-11-04 05:56:00 Shanell José [facility] MAGNESIUM 2022-11-04 05:55:00 Shanell José [facility] BASIC METABOLIC PANEL (NA, 2022-11-04 05:55:00 Shanell José [facility] [place] K, CL, CO2, GLUCOSE, BUN, Medica l Branch CREATININE, CA) CBC WITH DIFF 2022-11-04 05:55:00 Shanell José [facility] POTASSIUM URINE 2022-11-04 05:30:00 Shanell José [facility] SODIUM URINE 2022-11-04 05:30:00 Shanell José [facility] VITAMIN B12, LEVEL 2022-11-03 21:13:00 Shanell José [facility] VITAMIN D, 25-OH 2022-11-03 21:12:00 Shanell José [facility] MAGNESIUM 2022-11-03 10:47:00 Shanell José [facility] BASIC METABOLIC PANEL (NA, 2022-11-03 10:47:00 Shanell José [facility] K, CL, CO2, GLUCOSE, BUN, [facility] CREATININE, CA) CBC WITH DIFF 2022-11-03 10:47:00 Shanell José [facility] OSMOLALITY URINE 2022-11-03 05:34:00 Shanell José [facility] URINALYSIS 2022-11-03 05:34:00 Shanell José [facility] URINE CULTURE 2022-11-03 05:34:00 Shanell José [facility] CREATININE, URINE RANDOM 2022-11-03 05:34:00 Shanell José [facility] UREA NITROGEN, URINE 2022-11-03 05:34:00 Shanell José [facility] RANDOM [facility] SODIUM 2022-11-03 04:19:00 Shanell José [facility] BLOOD CULTURE SCREEN 2022-11-03 04:18:00 Shanell José [facility] US RETROPERITONEAL LIMITED 2022-11-02 23:30:00 Shanell [facility] LACTIC ACID WHOLE BLOOD 2022-11-02 22:56:00 Shanell José [facility] CLOSTRIDIUM DIFFICILE 2022-11-02 21:21:[address] [facility] TOXIN [facility] FECAL PATHOGENS BY PCR 2022-11-02 21:21:00 Shanell José [facility] BLOOD CULTURE SCREEN 2022-11-02 20:59:00 Shanell José [facility] MAGNESIUM 2022-11-02 20:57:00 Shanell José [facility] COMP. METABOLIC PANEL 2022-11-02 20:57:[address] [facility] ([id number]) [facility] CBC WITHOUT DIFF 2022-11-02 20:57:00 Shanell José [facility] PHOSPHORUS 2022-11-02 18:28:00 Shanell José [facility] FREE T4 2022-11-02 18:28:00 Shanell José [facility] THYROID STIMULATING 2022-11-02 18:28:00 Shanell José [facility] HORMONE [facility] HEPATIC FUNCTION PANEL 2022-11-02 18:28:00 [facility]ell [facility] ([id number] (ALB,T.PRO,BILI [facility] T,BU/BC,ALT,AST,ALK PHOS) LACTIC ACID WHOLE BLOOD 2022-11-02 17:29:00 Danay Gordillo [facility] HB ECG ROUTINE & RHYTHM 2022-11-02 13:58:35 Danay Gordillo [facility] LIPASE 2022-11-02 13:16:00 Danay Gordillo [facility] MAGNESIUM 2022-11-02 13:16:00 Danay Gordillo [facility] TROPONIN I 2022-11-02 13:16:00 Danay Gordillo [facility] COMP. METABOLIC PANEL 2022-11-02 13:16:00 [facility] ([id number]) [facility] CBC WITH DIFF 2022-11-02 13:16:00 Danay Gordillo [facility] GALV ONLY - INFLUENZA A B 2022-11-02 13:16:00 Danay Gordillo [facility] RSV PCR [facility] COVID-19 (ID NOW RAPID 2022-11-02 13:16:00 Danay [facility] TEST[facility] Medical [place] LAB ONLY COVID 2022-11-02 13:16:00 Danay Gordillo [facility] INTERPRETATION [facility] HOSPITAL ADMISSION 2022-11-02 06:01:00 Doctor Unassigned, [facility] [place] [facility] CT ABDOMEN PELVIS W 2022-10-20 03:22:00 Alvarez [facility] CONTRAST [facility] LIPASE 2022-10-20 01:43:00 Alvarez Austin [facility] MAGNESIUM 2022-10-20 01:43:00 Alvarez Austin [facility] COMP. METABOLIC PANEL 2022-10-20 01:43:00 Alvarez Austin [facility] ([id number]) [facility] CBC WITH DIFF 2022-10-20 01:43:00 Alvarez Austin [facility] CONSENT/REFUSAL FOR 2022-10-20 01:10:04 Doctor Unassigned, [facility] DIAGNOSIS AND TREATMENT [place] [facility] PHOSPHORUS 2022-05-21 09:31:00 Adriane [facility] MAGNESIUM 2022-05-21 09:31:00 Adriane [facility] BASIC METABOLIC PANEL (NA, 2022-05-21 09:31:00 Adriane [facility] K, CL, CO2, GLUCOSE, BUN, Medica l Branch CREATININE, CA) CBC WITH DIFF 2022-05-21 09:31:00 Adriane [facility] INTACT PTH CALCIUM GROUP 2022-05-20 18:29:00 [facility] RENAL ARTERY DUPLEX - BY 2022-05-20 17:58:00 Douglas Arizmendi [facility] VASCULAR LAB Medical Branch LACTIC ACID WHOLE BLOOD 2022-05-20 10:43:[address] [facility] CREATINE KINASE 2022-05-20 08:36:00 Bl[facility] URIC ACID 2022-05-20 08:36:00 Blanca [facility] MAGNESIUM 2022-05-20 08:36:00 Patel Rangel [facility] FERRITIN SERUM 2022-05-20 08:36:00 Blanca christophe [facility] CORTISOL AM 2022-05-20 08:36:00 Blanca [facility] OSMOLALITY, SERUM OR 2022-05-20 08:36:00 Blanca christophe [facility] PLASMA [facility] OSMOLALITY URINE 2022-05-20 08:36:00 Blanca [facility] AMMONIA, PLASMA 2022-05-20 08:36:00 Blanca [facility] VITAMIN B12, LEVEL 2022-05-20 08:36:00 Eros Rios [facility] THYROID STIMULATING 2022-05-20 08:36:00 Eros Rios [facility] HORMONE [facility] COMP. METABOLIC PANEL 2022-05-20 08:36:[address] [facility] ([id number]) Medical [place] LIPID PANEL ([id number])(TOTAL 2022-05-20 08:36:00 Eros Rios [facility] CHOLESTEROL, Medical [place] TRIGLYCERIDES, HDL) IRON PANEL 2022-05-20 08:36:00 Eros Rios [facility] ETHANOL 2022-05-20 08:36:00 Blanca christophe [facility] URINE DRUG (IMMUNOASSAY) - 2022-05-20 08:36:00 Eros Rios [facility] COMPREHENSIVE DRUG SCREEN Medica l Branch SEDIMENTATION RATE 2022-05-20 08:36:00 Blanca christophe [facility] CBC WITH DIFF 2022-05-20 08:36:00 Blanca [facility] GLYCOSYLATED HEMOGLOBIN 2022-05-20 08:36:00 [facility] (A1C) [facility] PROTHROMBIN TIME / INR 2022-05-20 08:36:00 Eros Rios [facility] URINALYSIS 2022-05-20 08:36:00 Eros Rios [facility] OCCULT (GUAIAC) BLOOD 2022-05-20 08:36:00 Eros Rios [facility] URINE CULTURE 2022-05-20 08:36:00 Eros Rios [facility] CLOSTRIDIUM DIFFICILE 2022-05-20 08:36:00 Eros Rios [facility] VITAMIN D, 25-OH 2022-05-20 08:36:00 Blanca [facility] UREA NITROGEN, URINE 2022-05-20 08:36:00 Eros Rios [facility] SODIUM, URINE RANDOM 2022-05-20 08:36:00 Blanca christophe [facility] PROTEIN CREAT RATIO URINE 2022-05-20 08:36:00 Eros Rios [facility] AC VBG + LACTIC ACID 2022-05-20 08:36:00 Eros Rios [facility] FECAL PATHOGENS BY PCR 2022-05-20 08:36:00 Eros Rios [facility] CT ABDOMEN PELVIS W 2022-05-20 03:23:04 Joel Baez [facility] CONTRAST [facility] COVID-19 (ID NOW RAPID 2022-05-20 01:44:00 [facility] TEST[facility] Medical Branch LAB ONLY COVID 2022-05-20 01:44:00 Joel Baez [facility] INTERPRETATION [facility] LACTIC ACID WHOLE BLOOD 2022-05-20 01:42:00 Joel Baez [facility] LIPASE 2022-05-20 01:30:00 Joel Baez [facility] COMP. METABOLIC PANEL 2022-05-20 01:30:00 Joel Baez [facility] ([id number]) Medical Branch CBC WITH DIFF 2022-05-20 01:30:00 Joel Baez [facility] NOTICE OF PRIVACY 2022-05-19 23:54:00 Doctor Unassigned, [facility] PRACTICES [place] [facility] [place] CONSENT/REFUSAL FOR 2022-05-19 23:53:24 Doctor Unassigned, [facility] DIAGNOSIS AND TREATMENT [place] [facility] COMP. METABOLIC PANEL 2022-04-10 03:54:00 Alvarez Austin [facility] ([id number]) [facility] CBC WITH DIFF 2022-04-10 03:49:00 Alvarez Austin [facility] LIPASE 2022-04-10 03:07:00 Alvarez Austin [facility] XR CHEST 2 VW 2022-04-10 02:59:18 Alvarez Austin [facility] COVID-19 (ID NOW RAPID 2022-04-10 02:43:00 Alvarez Austin [facility] TESTING) Medical Branch PHOSPHORUS 2022-04-08 10:26:[address] [facility] MAGNESIUM 2022-04-08 10:26:[address] [facility] BASIC METABOLIC PANEL (NA, 2022-04-08 10:26:00 [facility], CL, CO2, GLUCOSE, BUN, Medica l Branch CREATININE, CA) CBC WITH DIFF 2022-04-08 10:26:[address] [facility] PHOSPHORUS 2022-04-07 09:45:00 Marcela [facility] MAGNESIUM 2022-04-07 09:45:00 Marcela [facility] BASIC METABOLIC PANEL (NA, 2022-04-07 09:45:00 Don Medrano [facility] K, CL, CO2, GLUCOSE, BUN, Medica l Branch CREATININE, CA) LACTIC ACID WHOLE BLOOD 2022-04-06 09:05:[address] [facility] MAGNESIUM 2022-04-06 09:04:00 Kurt [facility] BASIC METABOLIC PANEL (NA, 2022-04-06 09:04:00 Rolf Hicks [facility] K, CL, CO2, GLUCOSE, BUN, Medica l Branch CREATININE, CA) CBC WITH DIFF 2022-04-06 09:04:00 Kurt [facility] BASIC METABOLIC PANEL (NA, 2022-04-05 08:12:00 NoonanAgatha glover [facility] K, CL, CO2, GLUCOSE, BUN, Medica l Branch CREATININE, CA) ACUTE CARE VENOUS BLOOD 2022-04-05 08:12:00 Octavio Macario [facility] CBC WITH DIFF 2022-04-05 08:12:00 Shaista [facility] BASIC METABOLIC PANEL (NA, 2022-04-04 09:03:00 HicksRolf cottrell [facility] K, CL, CO2, GLUCOSE, BUN, Medica l Branch CREATININE, CA) US RETROPERITONEAL LIMITED 2022-04-03 23:10:49 Octavio [facility] ACUTE CARE VENOUS BLOOD 2022-04-03 18:33:00 Octavio Macario [facility] OSMOLALITY URINE 2022-04-03 17:59:00 Amirah Octavio [facility] BASIC METABOLIC PANEL (NA, 2022-04-03 17:59:00 Octavio Macario [facility] K, CL, CO2, GLUCOSE, BUN, Medica l Branch CREATININE, CA) CREATININE, URINE RANDOM 2022-04-03 17:59:00 Octavio Macario [facility] POTASSIUM, URINE RANDOM 2022-04-03 17:59:[address] [facility] SODIUM, URINE RANDOM 2022-04-03 17:59:00 Octavio Macario [facility] MAGNESIUM 2022-04-03 09:29:00 Octavio Macario [facility] OSMOLALITY, SERUM OR 2022-04-03 09:29:00 Octavio Macario [facility] PLASMA [facility] BASIC METABOLIC PANEL (NA, 2022-04-03 09:29:00 Juventino Thomas [facility] K, CL, CO2, GLUCOSE, BUN, Medica l Branch CREATININE, CA) CBC WITH DIFF 2022-04-03 09:29:00 [facility] 2022-04-03 03:44:00 William [facility] TOXIN [facility] LACTIC ACID WHOLE BLOOD 2022-04-03 03:38:00 William [facility] LACTIC ACID WHOLE BLOOD 2022-04-03 00:07:00 William [facility] URINE CULTURE 2022-04-02 22:39:[address] [facility] CT ABDOMEN PELVIS WO 2022-04-02 21:07:00 Rekha Sheehan [facility] CONTRAST [facility] LIPASE 2022-04-02 20:00:00 Aguila [facility] TROPONIN I 2022-04-02 20:00:00 Aguila [facility] HEPATIC FUNCTION PANEL 2022-04-02 20:00:00 Rekha Sheehan [facility] ([id number]) (ALB,T.PRO,BILI Medical Branch T,BU/BC,ALT,AST,ALK PHOS) BASIC METABOLIC PANEL (NA, 2022-04-02 20:00:00 Rekha Sheehan [facility] K, CL, CO2, GLUCOSE, BUN, Medica l Branch CREATININE, CA) URINALYSIS 2022-04-02 20:00:00 Aguila [facility] CBC WITH DIFF 2022-04-02 18:20:00 Aguila [facility] COVID-19 (ID NOW RAPID 2022-04-02 18:20:00 Rekha Sheehan [facility] TESTING) Medical Branch LAB ONLY COVID 2022-04-02 18:20:00 Aguila [facility] INTERPRETATION [facility] XR CHEST 2 VW 2022-04-02 17:29:13 Aguila [facility] HB ECG ROUTINE & RHYTHM 2022-04-02 16:32:43 Rekha Sheehan [facility] CONSENT/REFUSAL FOR 2022-04-02 16:29:46 Doctor Unassigned, [facility] DIAGNOSIS AND TREATMENT [place] Medical Branch BASIC METABOLIC PANEL 2022-03-07 05:51:00 Res[facility] HEPATIC FUNCTION PANEL 2022-03-07 05:51:00 [facility] CBC W/PLT COUNT & AUTO 2022-03-07 05:51:00 [facility] CBC W/PLT COUNT & AUTO 2022-03-07 05:51:00 [facility] DIFFERENTIAL [place] US RENAL COMPLETE 2022-03-06 18:23:00 [facility] SARS-COV2/RT-PCR ([facility] & 2022-03-06 17:36:00 [facility] REF LABS) Center TSH/FREE T4 IF INDICATED 2022-03-06 14:18:00 Aryan Tello [facility] T4, FREE 2022-03-06 14:18:00 Aryan Tello [facility] ED ECG INTERPRETATION 2022-03-06 13:48:12 Aryan Tello [facility] XR CHEST 1 VIEW PORTABLE / 2022-03-06 13:42:00 Aryan Tello [facility] BEDSIDE [facility] B-TYPE NATRIURETIC FACTOR 2022-03-06 13:23:00 Aryan Tello [facility] (BNP) [facility] CBC W/PLT COUNT & AUTO 2022-03-06 13:23:00 Aryan Tello [facility] DIFFERENTIAL [facility] COMPREHENSIVE METABOLIC 2022-03-06 13:23:[address] [facility] PANEL [facility] HIGH SENSITIVITY TROPONIN 2022-03-06 13:23:[address] [facility] MAGNESIUM 2022-03-06 13:23:00 [facility]US 2022-03-06 13:23:00 [facility] LACTIC ACID, VENOUS 2022-03-06 13:23:00 [facility] CREATINE KINASE (CK) 2022-03-06 13:23:00 Elisha [facility] CBC W/PLT COUNT & AUTO 2022-03-06 13:23:00 Jonna [facility] ECG 12-LEAD 2022-03-06 12:12:56 Unknown, Hl7 [facility] ECG 12-LEAD 2022-03-06 12:12:56 Unknown, Hl7 [facility] EKG-SCANNED 2022-03-06 00:00:00 Provider, [facility] BASIC METABOLIC PANEL 2022-02-20 05:10:00 Rufino Lazaro [facility] CBC (WITHOUT DIFFERENTIAL) 2022-02-20 05:10:00 Rufino Lazaro [facility] MAGNESIUM 2022-02-20 05:10:00 Rufino Lazaro [facility] PHOSPHORUS 2022-02-20 05:10:00 Rufino Lazaro [facility] CBC (WITHOUT DIFFERENTIAL) 2022-02-20 05:10:00 Rufino Lazaro [facility] BASIC METABOLIC PANEL 2022-02-20 05:10:00 Rufino Lazaro [facility] MAGNESIUM 2022-02-20 05:10:00 Rufino Lazaro [facility] PHOSPHORUS 2022-02-20 05:10:00 Rufino Lazaro [facility] INFUSION PUMP 2022-02-19 19:03:50 Rufino Lazaro [facility] INFUSION PUMP 2022-02-19 19:03:50 Rufino Lazaro [facility] CBC/DIFF 2022-02-19 06:35:00 Fannie Blake [facility] PHOSPHORUS 2022-02-19 06:35:00 Fannie Blake alth COMPREHENSIVE METABOLIC 2022-02-19 06:35:00 [facility] PANEL CBC 2022-02-19 06:35:00 Fannie Blake alth COMPREHENSIVE METABOLIC 2022-02-19 06:35:00 [facility] PANEL CBC/DIFF 2022-02-19 06:35:00 Fannie Blake alth PHOSPHORUS 2022-02-19 06:35:00 Fannie Blake alth CBC 2022-02-19 06:35:00 Fannie Blake alth URINALYSIS W/REFLEX TO 2022-02-19 00:34:00 Fannie Blake [facility] [employer] URINE CULTURE URINALYSIS 2022-02-19 00:34:00 [facility] 2022-02-19 00:34:00 Philip [employer] URINALYSIS W/REFLEX TO 2022-02-19 00:34:00 Fannie Blake [facility] [employer] URINE CULTURE URINALYSIS 2022-02-19 00:34:00 Chadd Palacios [facility] URINE CULTURE COLLECTION 2022-02-19 00:34:00 Philip [employer] KIT CORONAVIRUS, COVID-19, OLENA 2022-02-18 19:00:00 Philip, [employer] SARS-COV-2, FLU A/B, RSV 2022-02-18 19:00:00 Philip [employer] SARS-COV-2, FLU A/B, RSV 2022-02-18 19:00:00 [employer] CORONAVIRUS, COVID-19, OLENA 2022-02-18 19:00:00 [employer] XRAY CHEST 1 VIEW 2022-02-18 15:23:00 Roz Scales [facility] XRAY CHEST 1 VIEW 2022-02-18 15:23:00 Roz Scales [facility] CONSULT CLINICAL CASE 2022-02-18 14:50:50 Roz Scales [facility] MANAGEMENT (RN/SW) CONSULT CLINICAL CASE 2022-02-18 14:50:50 Sherry Scaleswandy [facility] MANAGEMENT (RN/SW) BASIC METABOLIC PANEL 2022-02-18 14:16:00 Albab, Sus[facility] CBC/DIFF 2022-02-18 14:16:00 Albab, [facility] CREATINE KINASE (CK) 2022-02-18 14:16:00 Albab, [facility] MAGNESIUM [...] h CREATINE KINASE (CK) 2022-02-18 14:16:00 Albab, [facility] CBC 2022-02-18 14:16:00 Albab, [facility] BASIC METABOLIC PANEL 2022-02-11 03:34:00 [facility] (WITHOUT DIFFERENTIAL) 2022-02-11 03:34:00 [place] [facility] MAGNESIUM 2022-02-11 03:34:00 Jamilahhafrederic, [facility] PHOSPHORUS 2022-02-11 03:34:00 [place], [facility] BASIC METABOLIC PANEL 2022-02-11 03:34:00 [facility]UM 2022-02-11 03:34:00 [place], [facility] PHOSPHORUS 2022-02-11 03:34:00 [place], [facility] CBC (WITHOUT DIFFERENTIAL) 2022-02-11 03:34:00 [place], [facility] BASIC METABOLIC PANEL 2022-02-10 03:39:00 Antonieta [facility] CBC/DIFF 2022-02-10 03:39:00 Daily Islas [facility] FREE T4 2022-02-10 03:39:00 [place], [facility] THYROID STIMULATING 2022-02-10 03:39:00 CucpinTeresa [facility] HORMONE (TSH) CBC 2022-02-10 03:39:00 Daily [facility] CBC/DIFF 2022-02-10 03:39:00 Daily [facility] BASIC METABOLIC PANEL 2022-02-10 03:39:00 Daily [facility] CBC 2022-02-10 03:39:00 Daily [facility] THYROID STIMULATING 2022-02-10 03:39:00 CucpinTeresa [facility] HORMONE (TSH) FREE T4 2022-02-10 03:39:00 JamilahhapinTeresa [facility]al th BASIC METABOLIC PANEL 2022-02-09 04:38:00 Daily [facility]las [facility] CBC/DIFF 2022-02-09 04:38:00 Daily [facility] CBC 2022-02-09 04:38:00 [facility]Daily [facility] CBC/DIFF 2022-02-09 04:38:00 Daily [facility] BASIC METABOLIC PANEL 2022-02-09 04:38:00 Daily [facility] CBC 2022-02-09 04:38:00 Daily [facility] CORTISOL, TOTAL 2022-02-08 11:37:00 Jian [facility]mitt [facility] CORTISOL, TOTAL 2022-02-08 11:37:00 [facility] GLUCOSE POC 2022-02-08 08:07:00 YinDaily [facility] GLUCOSE POC 2022-02-08 08:07:00 [facility] CBC (WITHOUT DIFFERENTIAL) 2022-02-08 04:00:00 Jian [facility] MAGNESIUM 2022-02-08 04:00:00 Jian [facility] PHOSPHORUS 2022-02-08 04:00:00 Jian Schmitt [facility] ealth PT/INR 2022-02-08 04:00:00 Jian Schmitt [facility] COMPREHENSIVE METABOLIC 2022-02-08 04:00:00 Jian Schmitt [facility] PANEL CBC (WITHOUT DIFFERENTIAL) 2022-02-08 04:00:00 Jian Schmitt [facility] METABOLIC 2022-02-08 04:00:00 Jian Schmitt [facility] PANEL PHOSPHORUS 2022-02-08 04:00:00 Jian Schmitt [facility] MAGNESIUM 2022-02-08 04:00:00 Jian Schmitt [facility] PT/INR 2022-02-08 04:00:00 Jian Schmitt [facility] ELECTROLYTES, URINE 2022-02-07 18:06:00 Gerardo Jyoti [facility] OSMOLALITY, URINE 2022-02-07 18:06:[address] [facility] URINALYSIS W/REFLEX TO 2022-02-07 18:06:00 MicahAreli shields [facility] URINE CULTURE URINALYSIS 2022-02-07 18:06:00 MicahAreli shields [facility] URINE CULTURE COLLECTION 2022-02-07 18:06:00 [facility]IN[facility] W/REFLEX TO 2022-02-07 18:06:00 MicahAreli shields [facility] URINE CULTURE URINALYSIS 2022-02-07 18:06:00 Areli Arciniega [facility] alth URINE CULTURE COLLECTION 2022-02-07 18:06:00 [facility] ELECTROLYTES, URINE 2022-02-07 18:06:00 Gerardo [facility] OSMOLALITY, URINE 2022-02-07 18:06:[address] [facility] CORONAVIRUS, COVID-19, OLENA 2022-02-07 18:05:00 Gerardo Jyoti [facility] SARS-COV-2, FLU A/B, RSV 2022-02-07 18:05:00 Jyoti Carrillo [facility] SARS-COV-2, FLU A/B, RSV 2022-02-07 18:05:00 Jyoti Carrillo [facility] CORONAVIRUS, COVID-19, OLENA 2022-02-07 18:05:00 Jyoti Carrillo Health NUTRITION CONSULT 2022-02-07 17:43:36 Jian Schmitt [facility] ASSESSMENT NUTRITION CONSULT 2022-02-07 17:43:36 Jian Schmitt [facility] ASSESSMENT BASIC METABOLIC PANEL 2022-02-07 17:18:00 Jyoti Carrillo is Health BASIC METABOLIC PANEL 2022-02-07 17:18:00 Jyoti Carrillo is Health LACTIC ACID 2022-02-07 14:04:00 Areli Arciniega alth LACTIC ACID 2022-02-07 14:04:00 Areli Arciniega alth BASIC METABOLIC PANEL 2022-02-07 14:03:00 Areli Arciniega [facility] Health CBC/DIFF 2022-02-07 14:03:00 Areli Arciniega alth LIPASE 2022-02-07 14:03:00 MicahemilianaAreli shields alth LIVER PROFILE 2022-02-07 14:03:00 Areli Arciniega alth MAGNESIUM 2022-02-07 14:03:00 Areli Arciniega alth PHOSPHORUS 2022-02-07 14:03:00 Areli Arciniega alth TROPONIN I 2022-02-07 14:03:00 Areli Arciniega alth CBC 2022-02-07 14:03:00 MicahemilianaAreli shields alth CBC/DIFF 2022-02-07 14:03:00 Areli Arciniega alth BASIC METABOLIC PANEL 2022-02-07 14:03:00 MicahemilianaAreli shields [facility] Health LIVER PROFILE 2022-02-07 14:03:00 Areli Arciniega alth LIPASE 2022-02-07 14:03:00 Areli Arciniega alth MAGNESIUM 2022-02-07 14:03:00 Areli Arciniega alth PHOSPHORUS 2022-02-07 14:03:00 Areli Arciniega Lynne Misael alth TROPONIN I 2022-02-07 14:03:00 Areli Arciniega Lynne Misael alth CBC 2022-02-07 14:03:00 Areli Arciniega Lynne Misael alth 12 LEAD EKG 2022-01-21 15:46:10 Ori Goldberg [facility] h CBC/DIFF 2022-01-21 04:11:00 LindseyTien P Lynne [facility]al MAGNESIUM 2022-01-21 04:11:00 LindseyNoeh P [facility] PHOSPHORUS 2022-01-21 04:11:00 Lindsey Tien P [facility] BASIC METABOLIC PANEL 2022-01-21 04:11:00 Ori Goldberg [facility] CBC 2022-01-21 04:11:00 LindseyTien [facility] CBC/DIFF 2022-01-20 04:37:00 LindseyTien P [facility] MAGNESIUM 2022-01-20 04:37:00 Lindsey Tien P [facility] PHOSPHORUS 2022-01-20 04:37:00 Lindsey, Tien P [facility] BASIC METABOLIC PANEL 2022-01-20 04:37:00 LindseyTien P [facility] s Health CBC 2022-01-20 04:37:00 LindseyTien P [facility] MAGNESIUM 2022-01-19 18:09:00 LindseyTien P [facility] PHOSPHORUS 2022-01-19 18:09:00 Lindsey Tien P [facility] BASIC METABOLIC PANEL 2022-01-19 18:09:00 Lindsey, [facility] CORTISOL, TOTAL 2022-01-19 18:09:00 Karin Bassett [facility] URINALYSIS W/REFLEX TO 2022-01-19 17:22:[address] [facility] URINE CULTURE URINALYSIS 2022-01-19 17:22:00 LindseyTien herrera P [facility] URINE CULTURE COLLECTION 2022-01-19 17:22:00 Tien Lucas [facility] KIT COMPUTED TOMOGRAPHY 2022-01-19 13:29:00 Tien Lucas [facility] ABDOMEN AND PELVIS WITHOUT CONTRAST CBC/DIFF 2022-01-19 04:44:00 Tien Lucas [facility] CBC 2022-01-19 04:44:00 Tien Lucas [facility] DIFFERENTIAL, MANUAL (NO 2022-01-19 04:44:00 Tien Lucas [facility] M[facility]PHOLOGY[facility] BASIC METABOLIC PANEL 2022-01-18 17:15:00 Tien Lucas [facility] CBC/DIFF 2022-01-18 04:46:00 Tien Lucas [facility] MAGNESIUM 2022-01-18 04:46:00 Tien Lucas [facility] PHOSPHORUS 2022-01-18 04:46:00 Tien Lucas [facility] BASIC METABOLIC PANEL 2022-01-18 04:46:00 Ori Goldberg [facility] CBC 2022-01-18 04:46:00 LindseyTien herrera [facility] HIV AG/AB COMBO ROUTINE 2022-01-18 04:46:00 Karin Bassett [facility] SCREENING ENTERIC PATHOGENS NUCLEIC 2022-01-18 03:25:00 Karin Bassett [facility] ACID TEST BASIC METABOLIC PANEL 2022-01-18 00:29:00 Ori Goldberg [facility] BASIC METABOLIC PANEL 2022-01-17 17:07:00 Tien Lucas P [facility] BASIC METABOLIC PANEL 2022-01-17 13:15:00 [facility] CALPROTECTIN FECAL 2022-01-17 12:38:00 Tien Lucas [facility] ealth FECAL LEUKOCYTES 2022-01-17 12:38:00 Tien Lucas [facility] T-TRANSGLUTAMINASE IGA 2022-01-17 12:22:00 Tien Lucas P [facility] BASIC METABOLIC PANEL 2022-01-17 08:51:00 Tien Lucas P [facility] BASIC METABOLIC PANEL 2022-01-17 04:47:00 [facility] CBC/DIFF 2022-01-17 04:47:00 Lindsey Tien Esther [facility] MAGNESIUM 2022-01-17 04:47:00 Tien Lucas Heal th PHOSPHORUS 2022-01-17 04:47:00 LindseyTien [facility] CBC 2022-01-17 04:47:00 Lindsey Tiengera Lynne [facility] BASIC METABOLIC PANEL 2022-01-17 00:08:00 LindseyTien Esther [facility] 12 LEAD EKG 2022-01-16 21:23:25 LindseyTien [facility] BASIC METABOLIC PANEL 2022-01-16 21:08:00 LindseyTien Harri [facility] XRAY CHEST 2 VIEWS 2022-01-16 19:56:00 LindseyTien [facility] ealth IP CONSULT TO PHYSICAL 2022-01-16 19:17:17 LindseyTien Esther [facility] THERAPY CONSULT CLINICAL CASE 2022-01-16 19:17:17 LindseyTien [facility] MANAGEMENT (RN/SW) SEQUENTIAL COMPRESSION 2022-01-16 19:17:17 LindseyTien [facility] PUMP SEQUENTIAL COMPRESSION 2022-01-16 19:17:17 LindseyTien [facility] PUMP SODIUM, URINE, RANDOM 2022-01-16 16:00:00 Kevin Nieves [facility] CREATININE, URINE, RANDOM 2022-01-16 16:00:00 Kevin Nieves [facility] OSMOLALITY, URINE 2022-01-16 16:00:00 Kevin Nieves [facility] SARS-COV-2, FLU A/B, RSV 2022-01-16 15:20:00 NievesKevin barreto [facility] CORONAVIRUS, COVID-19, OLENA 2022-01-16 15:20:00 Kevin Nieves [facility] FOLIC ACID 2022-01-16 14:13:00 Kevin Nieves [facility] ealt CREATININE POC 2022-01-16 13:55:00 Raymon Martin h BMP POC 2022-01-16 13:46:00 Raymon Martin CBC/DIFF 2022-01-16 12:12:00 Raymon Martin Feliberto [facility] CBC 2022-01-16 12:12:00 Veronica Raymon [facility] BASIC METABOLIC PANEL 2022-01-16 12:11:00 SamSadiq Eddie [facility] MAGNESIUM 2022-01-16 12:11:00 Sdaiq Vargas Hea lth VITAMIN B12 2022-01-16 12:11:00 Kevin Nieves ealth OSMOLALITY,SERUM 2022-01-16 12:11:00 Kevin Nieves [facility] INFUSION PUMP 2022-01-11 09:21:05 Helene Anderson [facility] GLUCOSE POC 2022-01-11 07:54:00 Helene Anderson [facility] BASIC METABOLIC PANEL 2022-01-11 04:07:00 Merissa Richards [facility] MAGNESIUM 2022-01-11 04:07:00 Merissa Richards [facility] h PHOSPHORUS 2022-01-11 04:07:00 [facility] CBC/DIFF 2022-01-11 04:06:[address] [facility]ON [facility] 2022-01-11 04:06:[address] [facility] F[facility]ID 2022-01-11 04:06:00 Merissa Richards [facility] CBC 2022-01-11 04:06:00 Merissa Richards [facility] h GLUCOSE POC 2022-01-10 18:16:00 Helene Anderson [facility] URINALYSIS 2022-01-10 16:10:[address] [facility] 2022-01-10 16:10:[address] [facility] SARS-[facility]OV-2, FLU A/B, RSV 2022-01-10 15:54:00 Merissa Richards [facility] CORONAVIRUS, COVID-19, OLENA 2022-01-10 15:54:00 Antoine Hester [facility] BASIC METABOLIC PANEL 2022-01-10 15:54:00 Merissa Richards [facility] VITAMIN B12 2022-01-10 15:54:00 Merissa [facility] VBG POC 2022-01-10 11:14:00 Unknown, Provider [facility] CBC/DIFF 2022-01-10 11:13:00 Antoine Hester [facility] BASIC METABOLIC PANEL 2022-01-10 11:13:00 Antoine Hester [facility] LACTIC ACID 2022-01-10 11:13:00 [facility] 2022-01-10 11:13:00 Antoine Hester [facility] h LIVER PROFILE 2022-01-10 11:13:00 Merissa Richards [facility] CK, TOTAL 2022-01-10 11:13:[address] [facility] FERRITIN 2022-01-10 11:13:00 Merissa Richards [facility] CREATINE KINASE MB (CKMB) 2022-01-10 11:13:00 Merissa Richards [facility] XRAY CHEST 2 VIEWS 2022-01-08 21:50:14 Tanja Sebastian [facility] CBC/DIFF 2022-01-08 21:27:00 Tanja Sebastian [facility] BASIC METABOLIC PANEL 2022-01-08 21:27:00 Tanja Sebastian [facility] LIVER PROFILE 2022-01-08 21:27:00 Tanja Sebastian [facility] CK, TOTAL 2022-01-08 21:27:00 Tajna Sebastian [facility] TROPONIN I 2022-01-08 21:27:00 Tanja Sebastian [facility] lt CBC 2022-01-08 21:27:00 Tanja Sebastian [facility] CREATINE KINASE MB (CKMB) 2022-01-08 21:27:00 Tanja Sebastian [facility] 12 LEAD EKG 2022-01-08 20:59:56 Tanja Sebastian [facility] COMP. METABOLIC PANEL 2021-09-14 03:41:[address] [facility] ([id number]) Medical Branch CBC WITH DIFF 2021-09-14 03:41:00 Mickey Ramos [facility] CT HEAD WO CONTRAST 2021-09-12 14:10:00 Dalmedo, [facility] TROPONIN I 2021-09-12 13:00:00 Odin [facility] BASIC METABOLIC PANEL (NA, 2021-09-12 13:00:00 Odin [facility] K, CL, CO2, GLUCOSE, BUN, Medica l Branch CREATININE, CA) CBC WITH DIFF 2021-09-12 13:00:00 Odin [facility] N-TERMINAL PRO-BNP 2021-09-12 13:00:00 [facility] LIPASE 2021-09-09 05:30:00 Sebastian Pacheco [facility] COMP. METABOLIC PANEL 2021-09-09 05:30:00 Sebastian Pacheco [facility] ([id number]) [facility] CBC WITH DIFF 2021-09-09 05:30:00 Sebastian Pacheco [facility] URINALYSIS 2021-09-08 04:45:00 Sebastian Pacheco [facility] CT ABDOMEN PELVIS W 2021-09-08 02:25:23 Sebastian Pacheco [facility] CONTRAST [facility] Branch LIPASE 2021-09-08 02:02:00 Sebastian Pacheco [facility] COMP. METABOLIC PANEL 2021-09-08 02:02:00 Sebastian Pacheco [facility] ([id number]) [facility] CBC WITH DIFF 2021-09-08 02:02:00 Sebastian Pacheco [facility] LACTIC ACID WHOLE BLOOD 2021-09-08 02:02:00 Sebastian Pacheco [facility] COVID-19 (ID NOW RAPID 2021-09-08 01:54:00 Sebastian [facility] TEST[facility]) Medical Branch BASIC METABOLIC PANEL (NA, 2021-09-04 12:30:00 Demario Godoy [facility] K, CL, CO2, GLUCOSE, BUN, Medica l Branch CREATININE, CA) BASIC METABOLIC PANEL (NA, 2021-09-04 12:30:00 Demario Godoy [facility] K, CL, CO2, GLUCOSE, BUN, Medica l Branch CREATININE, CA) SURGICAL PATHOLOGY EXAM 2021-09-03 14:01:00 Phacathy, [facility] COLOSTOMY REVISION 2021-09-03 12:58:00 Phatak, [facility] COLOSTOMY REVISION 2021-09-03 12:58:00 Phatak, [facility] BASIC METABOLIC PANEL (NA, 2021-09-03 11:26:00 Siddiqi, Cynthia [facility] K, CL, CO2, GLUCOSE, BUN, Medica l Branch CREATININE, CA) CBC WITHOUT DIFF 2021-09-03 11:26:00 Siddiqi, [facility] BASIC METABOLIC PANEL (NA, 2021-09-03 11:26:00 Siddiqi, [facility], CL, CO2, GLUCOSE, BUN, Medica l Branch CREATININE, CA) CBC WITHOUT DIFF 2021-09-03 11:26:00 Siddiqi, [facility] TRANSTHORACIC ECHO (TTE) 2021-09-02 21:22:12 Siddiqi, Cynthia [facility]/ CONTRAST Medical [facility] TRANSTHORACIC ECHO (TTE) 2021-09-02 21:22:12 Siddiqi, Cynthia [facility] COMPLETE W/ CONTRAST Medical [facility] COVID-19 (ID NOW RAPID 2021-09-02 19:35:00 Demario Godoy [facility] TESTING) Medical Branch LAB ONLY COVID 2021-09-02 19:35:00 Demario Godoy [facility] INTERPRETATION Medical Branch COVID-19 (ID NOW RAPID 2021-09-02 19:35:00 Demario Godoy [facility] TESTING) Medical Branch LAB ONLY COVID 2021-09-02 19:35:00 Demario Godoy [facility] INTERPRETATION Medical Branch BASIC METABOLIC PANEL (NA, 2021-09-02 10:40:00 Siddiqi, [facility]thia [facility], CL, CO2, GLUCOSE, BUN, Medica l Branch CREATININE, CA) BASIC METABOLIC PANEL (NA, 2021-09-02 10:40:00 Siddiqi, Cynthia [facility] [place] K, CL, CO2, GLUCOSE, BUN, Medica l Branch CREATININE, CA) BASIC METABOLIC PANEL (NA, 2021-09-01 21:20:00 Siddiqi, [facility] K, CL, CO2, GLUCOSE, BUN, Medica l Branch CREATININE, CA) BASIC METABOLIC PANEL (NA, 2021-09-01 21:20:00 Siddiqi, [facility] K, CL, CO2, GLUCOSE, BUN, Medica l Branch CREATININE, CA) BLOOD CULTURE SCREEN 2021-09-01 08:03:00 [facility] (NA, 2021-09-01 08:03:00 Siddiqi, [facility] K, CL, CO2, GLUCOSE, BUN, Medica l Branch CREATININE, CA) CBC WITH DIFF 2021-09-01 08:03:00 [facility] [place] [facility]LO[facility] S[facility]EN 2021-09-01 08:03:00 [facility] BASIC MET[facility]OLIC PANEL (NA, 2021-09-01 08:03:00 Siddiqi, [facility] K, CL, CO2, GLUCOSE, BUN, Medica l Branch CREATININE, CA) CBC WITH DIFF 2021-09-01 08:03:00 Siddiqi, [facility] MAGNESIUM 2021-09-01 02:09:00 [facility]OLIC PANEL (NA, 2021-09-01 02:09:00 Roberto [facility] K, CL, CO2, GLUCOSE, BUN, Arpita Medica l Branch CREATININE, CA) MAGNESIUM 2021-09-01 02:09:00 [facility] BASIC METABOLIC PANEL (NA, 2021-09-01 02:09:00 Roberto [facility] K, CL, CO2, GLUCOSE, BUN, Ar[facility]ica [facility] CREATININE, CA) LACTIC ACID WHOLE BLOOD 2021-08-31 12:40:00 Siddiqi, [facility] LACTIC ACID WHOLE BLOOD 2021-08-31 12:40:00 Siddiqi, [facility] BASIC METABOLIC PANEL (NA, 2021-08-31 11:44:00 Gaspar, [facility] K, CL, CO2, GLUCOSE, BUN, Medica l Branch CREATININE, CA) BASIC METABOLIC PANEL (NA, 2021-08-31 11:44:00 Gaspar, [facility] K, CL, CO2, GLUCOSE, BUN, Medica l Branch CREATININE, CA) BASIC METABOLIC PANEL (NA, 2021-08-31 06:29:00 Gaspar, [facility] K, CL, CO2, GLUCOSE, BUN, Medica l Branch CREATININE, CA) LACTIC ACID WHOLE BLOOD 2021-08-31 06:29:00 [facility] BASIC METABOLIC PANEL (NA, 2021-08-31 06:29:00 Gaspar, [facility] K, CL, CO2, GLUCOSE, BUN, Medica l Branch CREATININE, CA) LACTIC ACID WHOLE BLOOD 2021-08-31 06:29:00 Chasity [facility] BLOOD CULTURE SCREEN 2021-08-31 06:28:00 [facility] 2021-08-31 06:28:00 Chasity [facility] GRAM POSITIVE BLOOD 2021-08-31 06:28:00 [facility] PROBE-AEROBIC BLOOD CULTURE SCREEN 2021-08-31 06:28:00 Chasity [facility] BLOOD CULTURE WORKUP 2021-08-31 06:28:00 Chasity [facility] GRAM POSITIVE BLOOD 2021-08-31 06:28:00 [facility] PROBE-AEROBIC XR CHEST 2 VW 2021-08-31 03:08:00 Riccardo [facility] XR CHEST 2 VW 2021-08-31 03:08:00 Riccardo [facility] OSMOLALITY, SERUM OR 2021-08-31 02:44[facility] 2021-08-31 02:44:00 Riccardo [facility] THYROID STIMULATING 2021-08-31 02:44:00 Chasity [facility] BASIC METABOLIC PANEL (NA, 2021-08-31 02:44:00 Riccardo [facility] K, CL, CO2, GLUCOSE, BUN, [facility] CREATININE, CA) OSMOLALITY, SERUM OR 2021-08-31 02:44:00 Chasity [facility] TROPONIN I 2021-08-31 02:44:00 Riccardo [facility] THYROID STIMULATING 2021-08-31 02:44:00 Chasity [facility] BASIC METABOLIC PANEL (NA, 2021-08-31 02:44:00 Riccardo [facility] K, CL, CO2, GLUCOSE, BUN, [facility] CREATININE, CA) OSMOLALITY URINE 2021-08-31 00:08:00 Chasity [facility] URINALYSIS 2021-08-31 00:08:00 Riccardo [facility] SODIUM, URINE RANDOM 2021-08-31 00:08:00 Chasity [facility] CHLORIDE, URINE RANDOM 2021-08-31 00:08:[address] [facility] OSMOLALITY URINE 2021-08-31 00:08:00 Chasity [facility] URINALYSIS 2021-08-31 00:08:00 Riccardo [facility] SODIUM, URINE RANDOM 2021-08-31 00:08:00 Chasity [facility] CHLORIDE, URINE RANDOM 2021-08-31 00:08:[address] [facility] TROPONIN I 2021-08-30 23:27:00 Riccardo [facility] COMP. METABOLIC PANEL 2021-08-30 23:27:00 [id number] CBC WITH DIFF 2021-08-30 23:27:00 Gayatri Gu [facility] N-TERMINAL PRO-BNP 2021-08-30 23:27:00 Gayatri Gu [facility] TROPONIN I 2021-08-30 23:27:00 Riccardo [facility] COMP. METABOLIC PANEL 2021-08-30 23:27:00 Riccardo [facility] ([id number]) [facility] CBC WITH DIFF 2021-08-30 23:27:00 Riccardo [facility] N-TERMINAL PRO-BNP 2021-08-30 23:27:00 Gayatri Gu [facility] HB ECG ROUTINE & RHYTHM 2021-08-30 23:04:48 [facility] & RHYTHM 2021-08-30 23:04:48 Gayatri Gu Un [facility] XR CHEST 1 VW 2021-08-30 00:31:51 Alvarez [facility] POCT RAPID STREP SCREEN 2021-08-30 00:24:00 Alvarez Austin [facility] FOR GROUP A [facility] GALV ONLY - INFLUENZA A B 2021-08-30 00:15:00 Alvarez Austin [facility] RSV PCR Medical Branch COVID-19 (MOLECULAR 2021-08-30 00:15:00 Alvarez [facility] TESTING [facility] NUCLEIC ACID AMPLIFICATION) PREALBUMIN, SERUM 2021-08-05 10:46:00 [facility] PHOSPHORUS 2021-08-05 10:46:00 [facility] ALBUMIN 2021-08-05 10:46:00 [facility] MAGNESIUM 2021-08-05 10:46:00 Jessica Guerrero [facility] BASIC METABOLIC PANEL (NA, 2021-08-05 10:46:00 Jessica Guerrero [facility] K, CL, CO2, GLUCOSE, BUN, Medica l Branch CREATININE, CA) CBC WITH DIFF 2021-08-05 10:46:00 Csear liu [facility] COVID-19 (ID NOW RAPID 2021-08-05 00:29:00 Jessica Guerrero [facility] TESTING Medical Branch PHOSPHORUS 2021-08-04 11:37:00 Hakeem Jo [facility] MAGNESIUM 2021-08-04 11:37:00 [facility] BAS[facility] MET[facility]OLIC PANEL (NA, 2021-08-04 11:37:00 Hakeem Jo U [facility] K, CL, CO2, GLUCOSE, BUN, [facility] CREATININE, CA) CBC WITH DIFF 2021-08-04 11:37:00 Hakeem Jo [facility] PHOSPHORUS 2021-08-03 10:36:00 Hakeem Jo [facility] MAGNESIUM 2021-08-03 10:36:00 [facility] BASIC METABOLIC PANEL (NA, 2021-08-03 10:36:00 Hakeem Jo U [facility] K, CL, CO2, GLUCOSE, BUN, [facility] CREATININE, CA) CBC WITH DIFF 2021-08-03 10:36:00 Hakeem Jo [facility] PHOSPHORUS 2021-08-02 10:53:00 Hakeem Jo [facility] MAGNESIUM 2021-08-02 10:53:00 Hakeem Jo [facility] BASIC METABOLIC PANEL (NA, 2021-08-02 10:53:00 Hakeem Jo [facility] K, CL, CO2, GLUCOSE, BUN, [facility] CREATININE, CA) CBC WITH DIFF 2021-08-02 10:53:00 Hakeem Jo [facility] PHOSPHORUS 2021-08-01 10:03:00 Hakeem Jo [facility] MAGNESIUM 2021-08-01 10:03:00 [facility] BASIC METABOLIC PANEL (NA, 2021-08-01 10:03:00 [facility]akeem [facility], CL, CO2, GLUCOSE, BUN, [facility] Medica l Branch CREATININE, CA) CBC WITH DIFF 2021-08-01 10:03:00 [facility] PREALBUMIN, SERUM 2021-07-31 10:22:00 Antonino jin [facility] [place], [facility] PHOSPHORUS 2021-07-31 10:22:00 Hakeem Jo [facility] MAGNESIUM 2021-07-31 10:22:00 [facility] BASIC METABOLIC PANEL (NA, 2021-07-31 10:22:00 Hakeem Jo, [facility], CL, CO2, GLUCOSE, BUN, [facility] Medica l Branch CREATININE, CA) CBC WITH DIFF 2021-07-31 10:22:00 [facility] COVID-19 (ID NOW RAPID 2021-07-30 06:13:00 Jonah Rees [facility] TESTING) Medical Branch LAB ONLY COVID 2021-07-30 06:13:00 Jonah Rees [facility] INTERPRETATION [facility] CT ABDOMEN PELVIS W 2021-07-30 05:19:01 Jonah Rees [facility] CONTRAST [facility] Branch COMP. METABOLIC PANEL 2021-07-30 03:25:[address] [facility] ([id number]) Medical Branch LACTIC ACID WHOLE BLOOD 2021-07-30 02:53:00 Jon[facility] Re[facility] [place] LIPASE 2021-07-30 02:52:00 Jonah Rees [facility] CBC WITH DIFF 2021-07-30 02:52:00 Jonah Rees [facility] CONSENT/REFUSAL FOR 2021-07-30 02:09:09 Doctor Unassigned, [facility] DIAGNOSIS AND TREATMENT [place] [facility] PHOSPHORUS 2021-07-26 12:30:00 Antonino Dietrich [facility]eda, [facility] MAGNESIUM 2021-07-26 12:30:00 Antonino Dietrich [facility] Leda, [facility] h BASIC METABOLIC PANEL (NA, 2021-07-26 12:30:00 Antonino Karlo de [employer] [place] K, CL, CO2, GLUCOSE, BUN, Leda, Louis Med ical Branch CREATININE, CA) CBC WITH DIFF 2021-07-26 12:30:00 Antonino Dietrich [facility] Leda, [facility] h PHOSPHORUS 2021-07-25 11:32:00 [facility] MAGNESIUM 2021-07-25 11:32:00 [facility] BASIC METABOLIC PANEL (NA, 2021-07-25 11:32:00 Antonino Karlo de [employer] [place] K, CL, CO2, GLUCOSE, BUN, Leda, Louis [facility] ical Branch CREATININE, CA) CBC WITH DIFF 2021-07-25 11:32:00 Antonino Dietrich [facility] Leda, Louis Medical [facility] h CBC WITH DIFF 2021-07-25 04:13:00 Cesar liu [facility] PHOSPHORUS 2021-07-24 12:18:00 [facility] MAGNESIUM 2021-07-24 12:18:00 [facility] BASIC METABOLIC PANEL (NA, 2021-07-24 12:18:00 Jessica Guerrero [employer] [place] K, CL, CO2, GLUCOSE, BUN, Medica l Branch CREATININE, CA) COVID-19 (ID NOW RAPID 2021-07-23 15:23:00 Flaco Hicks [facility] TESTING) Medical Branch LAB ONLY COVID 2021-07-23 15:23:00 Flaco Hicks [facility] URINALYSIS 2021-07-23 12:49:00 Hakeem Jo [facility] PHOSPHORUS 2021-07-23 12:42:00 Hakeem Jo [facility] MAGNESIUM 2021-07-23 12:42:00 [facility] BASIC METABOLIC PANEL (NA, 2021-07-23 12:42:00 Hakeem Jo [facility] K, CL, CO2, GLUCOSE, BUN, Skyler [facility] [place] CREATININE, CA) CBC WITH DIFF 2021-07-23 12:42:[address] [facility] [address] [facility]OMEN PELVIS WO 2021-07-23 08:55:17 Flaco Hicks [facility] EXTERNAL PROVIDER RECORDS 2021-06-25 05:01:00 Doctor Unassigned, [facility] [place] [facility] BASIC METABOLIC PANEL (NA, 2021-06-03 10:37:00 Shweta Anderson [facility] K, CL, CO2, GLUCOSE, BUN, Medica l Branch CREATININE, CA) BASIC METABOLIC PANEL (NA, 2021-06-02 10:54:00 Shweta Anderson [facility] K, CL, CO2, GLUCOSE, BUN, Medica l Branch CREATININE, CA) CLOSTRIDIUM DIFFICILE 2021-06-01 22:51:00 [facility] TO[facility]IN [facility] FECAL PATHOGENS BY PCR 2021-06-01 22:51:00 [facility]Mir[facility] BASIC METABOLIC PANEL (NA, 2021-06-01 15:42:00 Shweta Anderson [facility] K, CL, CO2, GLUCOSE, BUN, Medica l Branch CREATININE, CA) LACTIC ACID WHOLE BLOOD 2021-06-01 05:38:[address] [facility] CT ABDOMEN PELVIS W 2021-05-31 23:25:45 Willie Garrett [facility] Branch LIPASE 2021-05-31 22:44:00 Willie Garrett [facility] TROPONIN I 2021-05-31 22:44:00 Willie Garrett [facility] COMP. METABOLIC PANEL 2021-05-31 22:44:[address] [facility] ([id number]) Medical Branch CBC WITH DIFF 2021-05-31 22:44:00 Willie Garrett [facility] COVID-19 (ID NOW RAPID 2021-05-31 22:44:00 Willie Garrett [facility] TEST[facility]) Medical Branch LAB ONLY COVID 2021-05-31 22:44:00 Willie Garrett [facility] INTERPRETATION [facility] Branch PHOSPHORUS 2021-05-21 09:03:00 [facility] MAGNESIUM 2021-05-21 09:03:00 [facility] BASIC METABOLIC PANEL (NA, 2021-05-21 09:03:00 Agatha Noonan [facility] K, CL, CO2, GLUCOSE, BUN, Medica l Branch CREATININE, CA) CBC WITH DIFF 2021-05-21 09:03:00 Agatha Noonan [facility] XR KUB 2021-05-20 20:02:49 [facility] LIPASE 2021-05-20 20:00:00 [facility] COMP. METABOLIC PANEL 2021-05-20 20:00:[address] [facility] ([id number]) [facility] Branch CBC WITH DIFF 2021-05-20 20:00:00 [facility] LACTIC ACID WHOLE BLOOD 2021-05-20 20:00:[address] [facility] COVID-19 (ID NOW RAPID 2021-05-20 20:00:00 Bernardo Donnelly [facility] TESTING) Medical Branch BASIC METABOLIC PANEL (NA, 2021-05-08 10:04:00 Abu Rodrick [facility] K, CL, CO2, GLUCOSE, BUN, Medica l Branch CREATININE, CA) CBC WITH DIFF 2021-05-08 10:04:00 Diogo [facility] XR KUB 2021-05-08 09:44:22 Beto [facility] XR ABDOMEN 1 VW 2021-05-08 05:32:36 Abu Geno, Diogo [facility] CT ABDOMEN PELVIS W 2021-05-08 01:08:43 Beto [facility] CONTRAST Medical Branch HEPATIC FUNCTION PANEL 2021-05-08 00:49:00 Beto [facility] ([id number]) (ALB,T.PRO,BILI Medical Branch T,BU/BC,ALT,AST,ALK PHOS) BASIC METABOLIC PANEL (NA, 2021-05-08 00:49:00 Alona Pérez [facility] K, CL, CO2, GLUCOSE, BUN, Medica l Branch CREATININE, CA) CBC WITH DIFF 2021-05-08 00:49:00 Beto [facility] COVID-19 (ID NOW RAPID 2021-05-08 00:42:00 Beto [facility] TESTING) Medical Branch LAB ONLY COVID 2021-05-08 00:42:00 Beto [facility] INTERPRETATION [facility] Branch NOTICE OF PRIVACY 2020-09-27 01:47:31 Doctor Unassigned, [facility] PRACTICES [place] Medical Branch CONSENT/REFUSAL FOR 2020-09-27 01:47:01 Doctor Unassigned, [facility] DIAGNOSIS AND TREATMENT [place] [facility] [place] BASIC METABOLIC PANEL (NA, 2020-08-23 10:03:00 Nataly [facility] K, CL, CO2, GLUCOSE, BUN, Medica l Branch CREATININE, CA) CBC WITHOUT DIFF 2020-08-23 10:03:00 [facility] (ID NOW RAPID 2020-08-23 00:23:00 Funmilayo Pinzon Un [facility] TESTING) Medical Branch HB ECG ROUTINE & RHYTHM 2020-08-22 22:19:37 Funmilayo Pinzon [facility] STRIP Medical Branch HEPATIC FUNCTION PANEL 2020-08-22 22:08:00 Funmilayo Pinzon [facility] ([id number]) (ALB,T.PRO,BILI Medical Branch T,BU/BC,ALT,AST,ALK PHOS) BASIC METABOLIC PANEL (NA, 2020-08-22 22:08:00 Nallely Pinzon [facility] K, CL, CO2, GLUCOSE, BUN, Medica l Branch CREATININE, CA) CBC WITH DIFF 2020-08-22 22:08:00 Funmilayo Pinzon [facility] CT SOFT TISSUE NECK W 2020-07-10 00:21:10 Juan M Aguillon [facility] CONTRAST [facility] URINALYSIS 2020-07-09 23:07:00 Juan M Aguillon [facility] BASIC METABOLIC PANEL (NA, 2020-07-09 22:51:00 Kirk Aguillon [facility] K, CL, CO2, GLUCOSE, BUN, Medica l Branch CREATININE, CA) CBC WITH DIFF 2020-07-09 22:51:00 Juan M Aguillon [facility] RAPID STREP SCREEN FOR 2020-07-09 22:51:00 Juan M Aguillon [facility] GROUP A Medical Branch COVID-19 (ID NOW RAPID 2020-07-09 22:51:00 Juan M Aguillon [facility] TESTING) Medical [place] CT ABDOMEN PELVIS W 2020-06-05 13:02:55 Travis Valdez [facility] CONTRAST [facility] URINALYSIS 2020-06-05 13:02:00 More [facility]etz [facility] EKG-12 LEAD 2020-06-05 11:57:46 More [facility] LIPASE 2020-06-05 11:57:00 More [facility] TROPONIN I 2020-06-05 11:57:00 More Goetz [facility] HEPATIC FUNCTION PANEL 2020-06-05 11:57:00 More Goetz [facility] ([id number]) (ALB,T.PRO,BILI Medical Branch T,BU/BC,ALT,AST,ALK PHOS) BASIC METABOLIC PANEL (NA, 2020-06-05 11:57:00 More Goetz [facility] K, CL, CO2, GLUCOSE, BUN, Medica l Branch CREATININE, CA) CBC WITH DIFF 2020-06-05 11:57:00 More Goetz [facility] LACTIC ACID WHOLE BLOOD 2020-06-05 11:57:00 [facility]US 2020-05-31 07:54:00 Patricia Katia Sandra [facility] MAGNESIUM 2020-05-31 07:54:00 DongurKatia Sandra [facility] BASIC METABOLIC PANEL (NA, 2020-05-31 07:54:00 Katia Gomez [facility] K, CL, CO2, GLUCOSE, BUN, Medica l Branch CREATININE, CA) CBC WITH DIFF 2020-05-31 07:54:00 Patricia Katia Sandra [facility] IR CHANGE OF ABSCESS DRAIN 2020-05-30 19:33:43 Ashwin [facility] PHOSPHORUS 2020-05-30 08:19:00 Lambreton Gonzales, [facility] CA) CBC WITH DIFF 2020-05-25 21:42:00 [facility] 2020-05-25 20:39:54 Lambreton Gonzales, [facility] PHOSPHORUS 2020-05-25 08:48:00 Lambreton Gonzales, [facility] MAGNESIUM 2020-05-25 08:48:00 Lambreton Gonzales, [facility] BASIC METABOLIC PANEL (NA, 2020-05-25 08:48:00 Lambreton Carlos a[facility] [employer] [place] K, CL, CO2, GLUCOSE, BUN, Rex Medica l Branch CREATININE, CA) PHOSPHORUS 2020-05-24 20:41:00 Lambreton Gonzales, [facility] MAGNESIUM 2020-05-24 20:41:00 Socorro Gonzales [facility] BASIC METABOLIC PANEL (NA, 2020-05-24 20:41:00 [facility], CL, CO2, GLUCOSE, BUN, Rex [facility] [place] CREATININE, CA) IR CHANGE OF ABSCESS DRAIN 2020-05-24 17:57:11 Vance Stafford [facility] IR ASPIRATION ABSCESS 2020-05-24 17:24:40 [facility] CYST BY NEEDLE [facility] ASPIRATE OR ABSCESS 2020-05-24 17:23:00 Nixon Prince [facility] CULTURE(AEROBIC/ANAEROBIC) Medic al Branch CBC WITH DIFF 2020-05-24 11:08:00 Sumeet [facility] PELVIS W 2020-05-23 15:02:24 Randa [facility] CONTRAST [facility] BASIC METABOLIC PANEL (NA, 2020-05-23 09:45:00 Sumeet [facility] K, CL, CO2, GLUCOSE, BUN, Anahi Medica l Branch CREATININE, CA) COVID-19 (PCR MOLECULAR 2020-05-23 06:53:00 Mayela [facility] TESTING) Medical Branch URINALYSIS 2020-05-22 21:41:00 Lopez, [facility] LIPASE 2020-05-22 21:26:00 Lopez, [facility] HEPATIC FUNCTION PANEL 2020-05-22 21:26:00 Lopez, Coye [facility] ([id number]) (ALB,T.PRO,BILI Medical [place] T,BU/BC,ALT,AST,ALK PHOS) BASIC METABOLIC PANEL (NA, 2020-05-22 21:26:00 Alex Lopez [facility] K, CL, CO2, GLUCOSE, BUN, Medica l Branch CREATININE, CA) CBC WITH DIFF 2020-05-22 21:26:00 Lopze, [facility] PROTHROMBIN TIME / INR 2020-05-22 21:26:00 Alex Lopez Unive [facility] ACTIVATED PARTIAL THRMPLAS 2020-05-22 21:26:00 Alex Lopez [facility] SELENA [facility] XR CHEST 1 VW 2020-05-22 20:55:00 Alex Lopez [facility] HOSPITAL ADMISSION 2020-05-22 05:01:00 Doctor Unassigned, [facility] [place] Medical Branch URINALYSIS 2020-05-20 09:58:00 Jonah Rodriguez [facility] COVID-19 (ID NOW RAPID 2020-05-20 09:48:00 Jonah Rodriguez [facility] TESTING) [facility] CT ABDOMEN PELVIS W 2020-05-20 04:07:43 Jonah Rodriguez [facility] CONTRAST [facility] Branch LIPASE 2020-05-20 03:09:00 [facility] MAGNESIUM 2020-05-20 03:09:00 Michael [facility] TROPONIN I 2020-05-20 03:09:00 Michael [facility] COMP. METABOLIC PANEL 2020-05-20 03:09:00 Jonah Rodriguez [facility] ([id number]) [facility] CBC WITH DIFF 2020-05-20 03:09:00 Michael [facility] PHOSPHORUS 2020-05-10 09:13:00 [facility] 2020-05-10 09:13:00 [facility] BASIC METABOLIC PANEL (NA, 2020-05-10 09:13:00 Randa [facility] K, CL, CO2, GLUCOSE, BUN, Medica l Branch CREATININE, CA) CBC WITH DIFF 2020-05-10 09:13:00 Randa [facility] PHOSPHORUS 2020-05-09 10:28:00 [facility] MAGNESIUM 2020-05-09 10:28:00 [facility] BASIC METABOLIC PANEL (NA, 2020-05-09 10:28:00 Randa [facility] K, CL, CO2, GLUCOSE, BUN, Medica l Branch CREATININE, CA) CBC WITH DIFF 2020-05-09 10:28:00 [facility] PHOS[facility]US 2020-05-08 11:18:00 [facility] 2020-05-08 11:18:00 [facility] BASIC METABOLIC PANEL (NA, 2020-05-08 11:18:00 [facility] K, CL, CO2, GLUCOSE, BUN, Medica l Branch CREATININE, CA) CBC WITH DIFF 2020-05-08 11:18:00 [facility] PHOSPHORUS 2020-05-07 09:21:00 [facility] MAGNESIUM 2020-05-07 09:21:00 [facility] BASIC METABOLIC PANEL (NA, 2020-05-07 09:21:00 [facility] K, CL, CO2, GLUCOSE, BUN, Medica l Branch CREATININE, CA) CBC WITH DIFF 2020-05-07 09:21:00 [facility] PHOS[facility]US 2020-05-06 09:57:00 [facility] MAGNESIUM 2020-05-06 09:57:00 [facility] BASIC METABOLIC PANEL (NA, 2020-05-06 09:57:00 [facility] K, CL, CO2, GLUCOSE, BUN, Medica l Branch CREATININE, CA) CBC WITH DIFF 2020-05-06 09:56:00 [facility] IR DRAINAGE BY CATHETER 2020-05-05 19:55:00 [facility] Medical Branch RETROPERITONEAL BODY FLUID 2020-05-05 19:06:00 Nixon Prince [facility] CULTURE(AEROBIC/ANAEROBIC) Medic [facility] FUNGUS (ROUTINE) CULTURE 2020-05-05 19:06:00 Nixon Prince [facility] BODY FLUID 2020-05-05 19:00:00 Ivan Guthrie [facility] CULTURE(AEROBIC/ANAEROBIC) Medic [facility] FUNGUS (ROUTINE) CULTURE 2020-05-05 19:00:00 Ivan Guthrie [facility] PREPARE PACKED RBC 2020-05-05 15:59:33 Hakeem Jo [facility] HB ABO GROUPING 2020-05-05 10:55:00 [facility] PREALBUMIN, SERUM 2020-05-05 08:56:00 Randa [facility] PHOSPHORUS 2020-05-05 08:56:00 Randa [facility] MAGNESIUM 2020-05-05 08:56:00 [facility] BASIC METABOLIC PANEL (NA, 2020-05-05 08:56:00 Randa [facility] K, CL, CO2, GLUCOSE, BUN, Medica l Branch CREATININE, CA) CBC WITH DIFF 2020-05-05 08:56:00 [facility] URINALYSIS 2020-05-05 05:11:00 Lora Hall [facility] CT ABDOMEN PELVIS W 2020-05-05 04:18:56 Lora Hall [facility] LIPASE 2020-05-05 02:35:00 Lora Hall [facility] COMP. METABOLIC PANEL 2020-05-05 02:35:00 Lora Hall [facility] ([id number]) [facility] CBC WITH DIFF 2020-05-05 02:35:00 Lora Hall [facility] COVID-19 (ID NOW RAPID 2020-05-05 02:27:00 Lora Hall [facility] TESTING) Medical Branch HOSPITAL ADMISSION 2020-05-04 05:01:00 Doctor Unassigned, [facility] [place] Medical Branch CBC WITH DIFF 2020-05-01 11:32:00 Randa [facility] PHOSPHORUS 2020-05-01 11:32:00 Randa [facility] MAGNESIUM 2020-05-01 11:32:00 [facility] BASIC METABOLIC PANEL (NA, 2020-05-01 11:32:00 Randa [facility] K, CL, CO2, GLUCOSE, BUN, Medica l Branch CREATININE, CA) CBC WITH DIFF 2020-04-29 11:31:00 [facility] PHOS[facility]US 2020-04-29 11:31:00 [facility] MAGNESIUM 2020-04-29 11:31:00 [facility] BASIC METABOLIC PANEL (NA, 2020-04-29 11:31:00 Randa [facility] K, CL, CO2, GLUCOSE, BUN, Medica l Branch CREATININE, CA) CBC WITH DIFF 2020-04-28 08:51:00 Becky [facility] MAGNESIUM 2020-04-28 08:51:00 Becky [facility] BASIC METABOLIC PANEL (NA, 2020-04-28 08:51:00 Becky [facility] K, CL, CO2, GLUCOSE, BUN, Cathryn Medica l Branch CREATININE, CA) CBC WITH DIFF 2020-04-27 09:34:00 Becky [facility] MAGNESIUM 2020-04-27 09:34:00 Becky [facility] BASIC METABOLIC PANEL (NA, 2020-04-27 09:34:00 Becky, [facility] K, CL, CO2, GLUCOSE, BUN, Cathryn Medica l Branch CREATININE, CA) CBC WITH DIFF 2020-04-26 09:27:00 Becky [facility] MAGNESIUM 2020-04-26 09:27:00 Becky [facility] BASIC METABOLIC PANEL (NA, 2020-04-26 09:27:00 Becky [facility] K, CL, CO2, GLUCOSE, BUN, Cathryn Medica l Branch CREATININE, CA) CBC WITH DIFF 2020-04-25 08:59:00 Becky [facility] MAGNESIUM 2020-04-25 08:59:00 Becky [facility] BASIC METABOLIC PANEL (NA, 2020-04-25 08:59:00 Becky, [facility] K, CL, CO2, GLUCOSE, BUN, Cathryn Medica l Branch CREATININE, CA) CBC WITH DIFF 2020-04-24 09:44:00 [facility] 2020-04-24 09:44:00 Becky [facility] BASIC METABOLIC PANEL (NA, 2020-04-24 09:44:00 Becky [facility] K, CL, CO2, GLUCOSE, BUN, Cathryn Medica l Branch CREATININE, CA) CT ABDOMEN PELVIS W 2020-04-23 23:24:02 [facility] CT THORAX W CONTRAST 2020-04-23 23:24:02 Grant Cheema, [facility] COVID-19 (ID NOW RAPID 2020-04-23 15:06:00 Grant Cheema, [facility] TESTING) [facility] PREALBUMIN, SERUM 2020-04-23 13:42:00 Grant [facility]ema, [facility] POTASSIUM SERUM 2020-04-23 13:42:00 Becky [facility] CBC WITH DIFF 2020-04-23 10:17:00 Becky [facility] MAGNESIUM 2020-04-23 10:17:00 Becky [facility] BASIC METABOLIC PANEL (NA, 2020-04-23 10:17:00 Becky [facility] K, CL, CO2, GLUCOSE, BUN, Cathryn Medica l Branch CREATININE, CA) XR CHEST 1 VW 2020-04-23 10:03:00 Becky [facility] MAGNESIUM 2020-04-22 10:37:00 Becky [facility] BASIC METABOLIC PANEL (NA, 2020-04-22 10:37:00 Becky [facility] K, CL, CO2, GLUCOSE, BUN, Cathryn Medica l Branch CREATININE, CA) CBC WITH DIFF 2020-04-22 10:30:00 Becky [facility] XR CHEST 1 VW 2020-04-22 07:30:00 Becky [facility] CBC WITH DIFF 2020-04-21 13:09:00 Becky [facility] MAGNESIUM 2020-04-21 13:09:00 Becky [facility] BASIC METABOLIC PANEL (NA, 2020-04-21 13:09:00 Becky [facility] K, CL, CO2, GLUCOSE, BUN, [facility] CREATININE, CA) XR CHEST 1 VW 2020-04-21 06:41:00 Grant Cheema, [facility] XR CHEST 1 VW 2020-04-20 11:03:41 Grant Cheema, [facility] CBC WITH DIFF 2020-04-20 09:45:00 Katrina [facility] PREALBUMIN, SERUM 2020-04-20 09:45:00 [facility] 2020-04-20 09:45:00 Carola [facility] MAGNESIUM 2020-04-20 09:45:00 Katrina [facility] BASIC METABOLIC PANEL (NA, 2020-04-20 09:45:00 Yosvany Herndon [facility] K, CL, CO2, GLUCOSE, BUN, Medica l Branch CREATININE, CA) XR CHEST 1 2020-04-19 10:13:45 Becky [facility] CBC WITH DIFF 2020-04-19 10:10:00 Katrina [facility] PHOSPHORUS 2020-04-19 10:10:00 Carola [facility] MAGNESIUM 2020-04-19 10:10:00 Katrina [facility] BASIC METABOLIC PANEL (NA, 2020-04-19 10:10:00 Yosvany Herndon [facility] K, CL, CO2, GLUCOSE, BUN, Medica l Branch CREATININE, CA) XR CHEST 1 2020-04-18 11:01:00 Becky [facility] CBC WITH DIFF 2020-04-18 10:19:00 Katrina [facility] PHOSPHORUS 2020-04-18 10:19:00 Carola, [facility] MAGNESIUM 2020-04-18 10:19:00 Katrina [facility] BASIC METABOLIC PANEL (NA, 2020-04-18 10:19:00 Katrina [facility] K, CL, CO2, GLUCOSE, BUN, Medica l Branch CREATININE, CA) XR CHEST 1 VW 2020-04-17 18:58:00 Becky [facility] CBC WITH DIFF 2020-04-17 09:33:00 Katrina [facility] PHOSPHORUS 2020-04-17 09:33:00 Carola [facility] MAGNESIUM 2020-04-17 09:33:00 Katrina [facility] BASIC METABOLIC PANEL (NA, 2020-04-17 09:33:00 Katrina [facility] K, CL, CO2, GLUCOSE, BUN, Medica l Branch CREATININE, CA) XR CHEST 1 2020-04-17 08:52:00 Grant Cheema [facility] XR CHEST 1 2020-04-16 23:45:00 [facility] 2020-04-16 21:50:00 [facility] CULTURE(AEROBIC/ANAEROBIC) [facility] FUNGUS (ROUTINE) CULTURE 2020-04-16 21:50:00 Jamie Staffordalan [facility] CYTO PLEURAL FLUID 2020-04-16 21:50:00 Rivera [facility] LDH TOTAL BODY FLUID 2020-04-16 21:50:00 Rivera Vance [facility] AMYLASE BODY FLUID 2020-04-16 21:50:00 Rivera [facility] GLUCOSE BODY FLUID 2020-04-16 21:50:00 Rivera [facility] PH, BODY FLUID 2020-04-16 21:50:00 Rivera [facility] T.PROTEIN BODY FLUID 2020-04-16 21:50:00 Rivera [facility] BODY FLUID DIRECT COUNT 2020-04-16 21:50:[address] [facility] IR PLEURAL DRAINAGE WITH 2020-04-16 21:36:25 Rosaura Pena [facility] TUBE WITH IMAGING [facility] PROTHROMBIN TIME / INR 2020-04-16 16:07:00 Rosaura Pena [facility] CBC WITH DIFF 2020-04-16 10:07:00 Katrina [facility] PHOSPHORUS 2020-04-16 10:07:00 Carola [facility] MAGNESIUM 2020-04-16 10:07:00 Katrina [facility] BASIC METABOLIC PANEL (NA, 2020-04-16 10:07:00 [facility], CL, CO2, GLUCOSE, BUN, Medica l Branch CREATININE, CA) CT ABDOMEN PELVIS W 2020-04-16 07:02:21 Grant [facility] CONTRAST [facility] CBC WITH DIFF 2020-04-15 10:02:00 Katrina [facility] PHOSPHORUS 2020-04-15 10:02:00 Carola [facility] MAGNESIUM 2020-04-15 10:02:00 Katrina [facility] BASIC METABOLIC PANEL (NA, 2020-04-15 10:02:00 Yosvany Herndon [facility] K, CL, CO2, GLUCOSE, BUN, Medica l Branch CREATININE, CA) CBC WITH DIFF 2020-04-14 10:26:00 Katrina [facility] PHOSPHORUS 2020-04-14 10:26:00 Carola [facility] MAGNESIUM 2020-04-14 10:26:00 Katrina [facility] BASIC METABOLIC PANEL (NA, 2020-04-14 10:26:00 Katrina [facility] K, CL, CO2, GLUCOSE, BUN, Medica l Branch CREATININE, CA) BASIC METABOLIC PANEL (NA, 2020-04-13 23:53:00 Grant Santana i [facility] K, CL, CO2, GLUCOSE, BUN, Danny Medica l Branch CREATININE, CA) CBC WITHOUT DIFF 2020-04-13 23:53:00 Grant Cheema, [facility] IR DRAINAGE BY CATHETER 2020-04-13 20:35:08 Grant Cheema, [facility] PERITONEAL OR [facility] RETROPERITONEAL BODY FLUID 2020-04-13 20:05:00 Neris Grier [facility] CULTURE(AEROBIC/ANAEROBIC) Medic al Branch LDH TOTAL BODY FLUID 2020-04-13 20:05:00 Grant Cheema, [facility] GLUCOSE BODY FLUID 2020-04-13 20:05:00 Grant Cheema [facility] T.PROTEIN BODY FLUID 2020-04-13 20:05:00 Grant Cheema, [facility] BODY FLUID DIRECT COUNT 2020-04-13 20:05:00 Grant Cheema, [facility] CBC WITH DIFF 2020-04-13 10:44:00 Katrina [facility] [facility] PHOSPHORUS 2020-04-13 10:44:00 Carola [facility] MAGNESIUM 2020-04-13 10:44:00 Katrina [facility] BASIC METABOLIC PANEL (NA, 2020-04-13 10:44:00 Yosvany Herndon [facility] K, CL, CO2, GLUCOSE, BUN, Medica l Branch CREATININE, CA) CT ABDOMEN PELVIS W 2020-04-12 21:23:19 [facility] CONTRAST [facility] URINALYSIS 2020-04-12 20:43:00 Rosaura Pena [facility] URINE CULTURE 2020-04-12 20:43:00 Rosaura Pena [facility] BLOOD CULTURE WORKUP 2020-04-12 18:51:00 [facility] GRAM NEGATIVE BLOOD 2020-04-12 18:51:[address] [facility] PATHOGENS DNA [facility] PROBE-ANAEROBIC BLOOD CULTURE SCREEN 2020-04-12 18:51:00 Rosaura Pena [facility] BLOOD CULTURE SCREEN 2020-04-12 18:50:00 Rosaura Pena [facility] CBC WITH DIFF 2020-04-12 08:46:00 Katrina [facility] PHOSPHORUS 2020-04-12 08:46:00 Carola [facility] MAGNESIUM 2020-04-12 08:46:00 Katrina [facility] BASIC METABOLIC PANEL (NA, 2020-04-12 08:46:00 [facility], CO2, GLUCOSE, BUN, Medica l Branch CREATININE, CA) CBC WITH DIFF 2020-04-11 08:54:00 Katrina [facility] PHOSPHORUS 2020-04-11 08:54:00 Carola [facility] MAGNESIUM 2020-04-11 08:54:00 Katrina [facility] BASIC METABOLIC PANEL (NA, 2020-04-11 08:54:00 Katrina [facility] K, CL, CO2, GLUCOSE, BUN, Medica l Branch CREATININE, CA) CBC WITH DIFF 2020-04-10 09:49:00 Katrina [facility] PHOSPHORUS 2020-04-10 09:49:00 Carola [facility] MAGNESIUM 2020-04-10 09:49:00 Katrina [facility] XR CHEST 1 VW 2020-04-09 11:27:00 Grant Cheema [facility] CBC WITH DIFF 2020-04-09 09:07:00 Katrina [facility] PHOSPHORUS 2020-04-09 09:07:00 Carola [facility] MAGNESIUM 2020-04-09 09:07:00 Katrina [facility] HEPATIC FUNCTION PANEL 2020-04-09 09:07:00 Grant Cheema [facility] ([id number]) (ALB,T.PRO,[facility] T,BU/BC,ALT,AST,ALK PHOS) BASIC METABOLIC PANEL (NA, 2020-04-09 09:07:00 Yosvany Herndon [facility] K, CL, CO2, GLUCOSE, BUN, Medica l Branch CREATININE, CA) AC PANEL 20 + LACTIC ACID 2020-04-08 21:11:00 [facility]AUTOMATED) 2020-04-08 12:27:00 Bia Pedro Uni [facility] AC PANEL 21 + LACTIC ACID 2020-04-08 09:34:00 Bigg [place] [facility]UCOSE (AUTOMATED) 2020-04-08 09:33:00 Bia Pedro [facility] CBC WITH DIFF 2020-04-08 09:26:00 Katrina [facility] MAGNESIUM 2020-04-08 09:26:00 [facility] BASIC METABOLIC PANEL (NA, 2020-04-08 09:26:00 Yosvany Herndon [facility] K, CL, CO2, GLUCOSE, BUN, Medica l Branch CREATININE, CA) POCT GLUCOSE (AUTOMATED) 2020-04-08 04:24:00 Bia Pedro [facility] POCT GLUCOSE (AUTOMATED) 2020-04-08 00:36:00 Mayela Bia [facility]UCOSE (AUTOMATED) 2020-04-07 21:24:00 Bia Pedro [facility] POCT GLUCOSE (AUTOMATED) 2020-04-07 16:49:00 iBa Pedro Uni [facility] AC PANEL 20 + LACTIC ACID 2020-04-07 14:14:00 Yosvany Herndon [facility] LACTIC ACID WHOLE BLOOD 2020-04-07 13:53:00 [facility]) 2020-04-07 12:50:00 Bia Pedro [facility] AC PANEL 20 + LACTIC ACID 2020-04-07 11:16:00 Yosvany Herndon [facility] 2020-04-07 08:48:00 Kat[facility] BASIC METABOLIC PANEL (NA, 2020-04-07 08:48:00 Yosvany Herndon [facility] K, CL, CO2, GLUCOSE, BUN, Medica l Branch CREATININE, CA) CBC WITH DIFF 2020-04-07 08:48:00 Katrina [facility] XR CHEST 1 VW 2020-04-07 08:10:00 [facility]) 2020-04-07 04:36:00 Bia Pedro [facility] AC PANEL 21 + LACTIC ACID 2020-04-07 02:05:00 Bigg Lawton [facility] MRSA / MSSA SCREEN BY PCR, 2020-04-07 02:05:00 Grant Santana i [facility] BLOOD CULTURE SCREEN 2020-04-07 02:05:00 Grant Cheema [facility] POCT GLUCOSE (AUTOMATED) 2020-04-07 00:37:00 Bia Pedro [facility] HCV ANTIBODY 2020-04-06 23:44:00 Grant Cheema [facility] POCT GLUCOSE (AUTOMATED) 2020-04-06 23:43:00 Bia Pedro [facility] HIV 1/2 AG-AB WITH REFLEX 2020-04-06 23:30:00 Grant Cheema [facility] POCT GLUCOSE (AUTOMATED) 2020-04-06 22:14:00 Bia Pedro [facility] ECHO ROUTINE W/DOPPLER 2020-04-06 20:25:55 Yosvany Herndon [facility] PROTHROMBIN TIME / INR 2020-04-06 19:00:00 Rosaura Pena [facility] ACTIVATED PARTIAL THRMPLAS 2020-04-06 19:00:00 [facility] 2020-04-06 19:00:00 Becky [facility] BASIC METABOLIC PANEL (NA, 2020-04-06 19:00:00 Becky [facility] K, CL, CO2, GLUCOSE, BUN, [facility] CREATININE, CA) COMP. METABOLIC PANEL 2020-04-06 19:00:[address] [facility] ([id number]) Medical [place] CBC WITH DIFF 2020-04-06 19:00:00 Katrina [facility] AC PANEL 21 + LACTIC ACID 2020-04-06 18:59:00 Simi [facility] ABG+COOX+NA+K+GLU+CA2+ 2020-04-06 16:06:00 Bia Pedro [facility] INTUBATION 2020-04-06 16:04:59 Ana Syed [facility] XR CHEST 1 VW 2020-04-06 15:43:00 Katrina [facility] SURGICAL PATHOLOGY EXAM 2020-04-06 15:12:00 Person, Juventino [facility] CENTRAL LINE 2020-04-06 14:52:37 Cynthia Herring [facility] E [facility] ARTERIAL LINE 2020-04-06 14:51:44 Ana Syed [facility] ASPIRATE OR ABSCESS 2020-04-06 14:50:29 Person, Juventino [facility] CULTURE(AEROBIC/ANAEROBIC) [facility] [employer] CULTURE 2020-04-06 14:50:29 Person, [facility] FUNGUS (ROUTINE) CULTURE 2020-04-06 14:50:29 Person, Juventino [facility] ABG+COOX+NA+K+GLU+CA2+ 2020-04-06 14:46:00 [facility]ia [facility] HB ABO GROUPING 2020-04-06 14:39:00 Dana Sampson [facility] EXPLORATORY LAPAROTOMY 2020-04-06 13:51:00 PersonZahraaJuventino [facility] URINE CULTURE 2020-04-06 13:48:00 Grant Cheema [facility] XR KUB 2020-04-06 13:34:22 Grant Cheema, [facility] XR CHEST 1 VW 2020-04-06 13:34:22 Grant Cheema [facility] MAGNESIUM 2020-04-06 11:47:00 Becky [facility] BASIC METABOLIC PANEL (NA, 2020-04-06 11:47:00 Becky [facility] K, CL, CO2, GLUCOSE, BUN, Cathryn [facility] CREATININE, CA) CBC WITH DIFF 2020-04-06 11:47:00 Becky [facility] XR KUB 2020-04-05 21:34:47 Grant Cheema [facility] XR KUB 2020-04-05 19:41:00 Grant Cheema [facility] MAGNESIUM 2020-04-05 09:44:00 Becky [facility] BASIC METABOLIC PANEL (NA, 2020-04-05 09:44:00 Becky [facility] K, CL, CO2, GLUCOSE, BUN, Cathryn [facility] CREATININE, CA) CBC WITH DIFF 2020-04-05 09:44:00 Becky [facility] MAGNESIUM 2020-04-04 10:09:00 Becky [facility] BASIC METABOLIC PANEL (NA, 2020-04-04 10:09:00 Becky [facility] K, CL, CO2, GLUCOSE, BUN, Cathryn [facility] CREATININE, CA) CBC WITH DIFF 2020-04-04 10:09:00 Becky [facility] SURGICAL PATHOLOGY EXAM 2020-04-03 20:13:00 Mayela [facility] LAPAROSCOPIC COLECTOMY 2020-04-03 15:35:00 Mayela [facility] COLONOSCOPY 2020-04-03 15:35:00 Mayela [facility] COLECTOMY 2020-04-03 15:35:00 Bia Pedro [facility] MAGNESIUM 2020-04-03 09:20:00 Becky [facility] BASIC METABOLIC PANEL (NA, 2020-04-03 09:20:00 Becky [facility] K, CL, CO2, GLUCOSE, BUN, [facility] CREATININE, CA) CBC WITH DIFF 2020-04-03 09:20:00 Becky [facility] HB ABO GROUPING 2020-04-02 22:45:00 Hugo Alfaro [facility] MAGNESIUM 2020-04-02 10:22:00 Becky [facility] BASIC METABOLIC PANEL (NA, 2020-04-02 10:22:00 Becky [facility] K, CL, CO2, GLUCOSE, BUN, [facility] CREATININE, CA) CBC WITH DIFF 2020-04-02 10:22:00 Becky [facility] COVID-19 (ID NOW RAPID 2020-04-01 23:02:00 Becky [facility] TESTING) [facility] URINALYSIS 2020-03-31 11:25:00 Alex Lopez [facility] CT ABDOMEN PELVIS W 2020-03-31 00:17:06 Alex Lopez [facility] CONTRAST [facility] XR CHEST 1 VW 2020-03-30 22:43:49 Alex Lopez [facility] EKG-12 LEAD 2020-03-30 22:14:24 Doctor Unassigned, [facility] [place] [facility] PROTHROMBIN TIME / INR 2020-03-30 22:05:00 Alex [facility] ACTIVATED PARTIAL THRMPLAS 2020-03-30 22:05:00 [facility] N-[facility]MINAL PRO-BNP 2020-03-30 22:05:00 Alex Lopez [facility] LIPASE 2020-03-30 22:05:00 Alex Lopez [facility] TROPONIN I 2020-03-30 22:05:00 Colette [facility] HEPATIC FUNCTION PANEL 2020-03-30 22:05:00 Alex Lopez [facility] ([id number]) (ALB,T.PRO,BILI Medical Branch T,BU/BC,ALT,AST,ALK PHOS) BASIC METABOLIC PANEL (NA, 2020-03-30 22:05:00 Alex Lopez [facility] K, CL, CO2, GLUCOSE, BUN, Medica l Branch CREATININE, CA) CBC WITH DIFF 2020-03-30 22:05:00 Colette [facility] EKG-12 LEAD 2020-03-30 22:01:44 Colette [facility] HOSPITAL ADMISSION 2020-03-30 05:01:00 Doctor Unassigned, [facility] [place] [facility] MAGNESIUM 2020-03-26 09:57:00 Simin [facility] BASIC METABOLIC PANEL (NA, 2020-03-26 09:57:00 Simin [facility] K, CL, CO2, GLUCOSE, BUN, Medica [facility] CREATININE, CA) CBC WITH DIFF 2020-03-26 09:57:00 Simin [facility] LACTIC ACID WHOLE BLOOD 2020-03-26 04:09:00 Sarah Duval [facility] COVID-19 (ID NOW RAPID 2020-03-26 02:01:00 Bernardo Donnelly [facility] TESTING) Medical Branch CT ABDOMEN PELVIS W 2020-03-26 01:17:18 Bernardo Donnelly [facility] CONTRAST Medical Branch PHOSPHORUS 2020-03-26 00:39:00 Simin [facility] MAGNESIUM 2020-03-26 00:39:00 Simin [facility] HEPATIC FUNCTION PANEL 2020-03-26 00:39:00 Bernardo Donnelly [facility] ([id number]) (ALB,T.PRO,BILI Medical Branch T,BU/BC,ALT,AST,ALK PHOS) BASIC METABOLIC PANEL (NA, 2020-03-26 00:39:00 Bernardo Donnelly [facility] K, CL, CO2, GLUCOSE, BUN, Medica l Branch CREATININE, CA) CBC WITH DIFF 2020-03-26 00:39:00 [facility]j [facility] EXTRA TUBE LT. BLUE 2020-03-26 00:39:00 Bernardo Donnelly [facility] HOSPITAL ADMISSION 2020-03-25 05:01:00 Doctor Unassigned, [facility] [place] [facility] PROTHROMBIN TIME / INR 2020-03-03 04:27:00 Ori Persaud [facility] ACTIVATED PARTIAL THRMPLAS 2020-03-03 04:27:00 Zahraa Persaud se [facility] XR ABDOMEN ACUTE SERIES 2020-03-03 02:15:00 Shy [facility] PHOSPHORUS 2020-03-03 01:22:00 Ori Persaud [facility] MAGNESIUM 2020-03-03 01:22:00 Burt Avendaño [facility] HEPATIC FUNCTION PANEL 2020-03-03 01:22:00 Shy [facility] ([id number]) (ALB,T.PRO,[facility] T,BU/BC,ALT,AST,ALK PHOS) BASIC METABOLIC PANEL (NA, 2020-03-03 01:22:00 Sabi Robledo [facility] K, CL, CO2, GLUCOSE, BUN, Medica l Branch CREATININE, CA) CBC WITH DIFFERENTIAL 2020-03-03 01:22:00 Sabi Robledo [facility] URINALYSIS 2020-03-03 01:22:00 Shy [facility] LACTIC ACID WHOLE BLOOD 2020-03-03 01:22:00 Shy [facility] COVID-19 (ID NOW RAPID 2020-03-03 01:22:00 Shy [facility] TESTING) [facility] GALV/CLC ONLY - URINE DRUG 2020-02-27 20:02:00 Shana [facility] (IMMUNOASSAY) - [facility] COMPREHENSIVE DRUG SCREEN FREE T4 2020-02-27 17:48:00 [facility] 2020-02-27 17:48:00 Shana [facility] HORMONE [facility] FREE T3 2020-02-27 17:48:00 [facility] CT ABDOMEN PELVIS W 2020-02-26 18:27:28 Alondra Fay [facility] CONTRAST [facility] COVID-19 (ID NOW RAPID 2020-02-26 06:41:00 Shy [facility] TESTING) Medical Branch XR ABDOMEN ACUTE SERIES 2020-02-26 04:48:30 Shy [facility] LIPASE 2020-02-26 03:35:00 Robledo, [facility] HEPATIC FUNCTION PANEL 2020-02-26 03:35:00 Shy [facility] ([id number]) (ALB,T.PRO,[facility] T,BU/BC,ALT,AST,ALK PHOS) BASIC METABOLIC PANEL (NA, 2020-02-26 03:35:00 Sabi Robledo [facility] K, CL, CO2, GLUCOSE, BUN, Medica l Branch CREATININE, CA) CBC WITH DIFFERENTIAL 2020-02-26 03:35:00 Shy [facility] LACTIC ACID WHOLE BLOOD 2020-02-26 03:35:00 Shy [facility] EXTRA TUBE LT. BLUE 2020-02-26 03:35:00 Shy [facility] MAGNESIUM 2020-02-03 16:38:00 [facility] BASIC METABOLIC PANEL (NA, 2020-02-03 16:38:00 [facility], CL, CO2, GLUCOSE, BUN, Medica l Branch CREATININE, CA) XR KUB 2020-01-31 16:59:00 Helene Griffin [facility] BASIC METABOLIC PANEL (NA, 2020-01-31 06:15:00 Kirill Henson [facility] K, CL, CO2, GLUCOSE, BUN, Medica l Branch CREATININE, CA) CBC WITH DIFFERENTIAL 2020-01-31 06:15:00 Kirill Henson [facility] BASIC METABOLIC PANEL (NA, 2020-01-29 10:06:00 [facility], CL, CO2, GLUCOSE, BUN, Medica l Branch CREATININE, CA) CBC WITH DIFFERENTIAL 2020-01-29 10:06:[address] [facility] COVID-19 (PCR MOLECULAR 2020-01-29 03:56:00 Liz [facility] TESTING) [facility] LACTIC ACID WHOLE BLOOD 2020-01-29 03:55:[address] [facility] EXTRA TUBE LAV 2020-01-29 03:55:00 Liz [facility] EXTRA TUBE LT. BLUE 2020-01-29 03:55:00 Liz [facility] ty [facility] EXTRA TUBE LT. GREEN 2020-01-29 03:55:00 Liz [facility] URINALYSIS 2020-01-29 01:35:00 Silvia Jurado I [facility] COVID-19 (ID NOW RAPID 2020-01-29 01:32:00 Bernardo Donnelly [facility] TESTING) [facility] CT ABDOMEN PELVIS W 2020-01-28 23:53:23 Silvia Jurado I [facility] CONTRAST [facility] LIPASE 2020-01-28 23:19:00 Silvia Jurado I [facility] HEPATIC FUNCTION PANEL 2020-01-28 23:19:00 ColtonSilvia [facility] ([id number]) (ALB,T.PRO,[facility] T,BU/BC,ALT,AST,ALK PHOS) BASIC METABOLIC PANEL (NA, 2020-01-28 23:19:00 Sondra Jurado I [facility] K, CL, CO2, GLUCOSE, BUN, Medica l Branch CREATININE, CA) CBC WITH DIFFERENTIAL 2020-01-28 23:19:00 Silvia Jurado I [facility] HOSPITAL ADMISSION 2020-01-28 05:01:00 Doctor Unassigned, [facility] [place] [facility] BASIC METABOLIC PANEL (NA, 2020-01-26 18:06:00 [facility], CL, CO2, GLUCOSE, BUN, Medica l Branch CREATININE, CA) MAGNESIUM 2020-01-26 08:17:00 Ahmed, [facility] XR KUB 2020-01-26 06:00:00 Helene Griffin [facility] Medical Branch PHOSPHORUS 2020-01-25 09:43:00 Liz [facility] COVID-19 (ID NOW RAPID 2020-01-25 04:31:00 Shy [facility] TESTING) [facility] LACTIC ACID WHOLE BLOOD 2020-01-25 04:27:00 Shy [facility] CT ABDOMEN PELVIS W 2020-01-25 02:15:22 Shy [facility] CONTRAST [facility] URINALYSIS 2020-01-25 01:05:00 Robledo, [facility] LIPASE 2020-01-25 00:42:00 Robledo, [facility] HEPATIC FUNCTION PANEL 2020-01-25 00:42:00 Robledo, [facility] ([id number]) (ALB,T.PRO,BILI [facility] T,BU/BC,ALT,AST,ALK PHOS) BASIC METABOLIC PANEL (NA, 2020-01-25 00:42:00 Sabi Robledo [facility] K, CL, CO2, GLUCOSE, BUN, Medica l Branch CREATININE, CA) CBC WITH DIFFERENTIAL 2020-01-25 00:42:00 Shy [facility] [id number] 2020-01-09 00:00:00 [facility].[address] [place] [address] EXTERNAL PROVIDER RECORDS 2019-12-28 05:01:00 Doctor Unassigned, [facility] [place] [facility] Plan of Care Planned Activity Planned Date Details Comments Source Future Scheduled 2029-03-23 Screening for malignant [facility] Test 00:00:00 neoplasm of colon Medical Ce nter (procedure) [code = 494488282] Future Scheduled 2029-03-23 Screening for malignant [facility] Test 00:00:00 neoplasm of colon Medical Ce [facility]ter (procedure) [code = 705841349] Future Scheduled 2029-03-23 Screening for malignant [facility] Test 00:00:00 neoplasm of colon Medical Ce nter (procedure) [code = 738941533] Future Scheduled 2029-03-23 Screening for malignant [facility] Test 00:00:00 neoplasm of colon Medical Ce nter (procedure) [code = 449724838] Future Scheduled 2029-03-23 Screening for malignant [facility] Test 00:00:00 neoplasm of colon Medical Ce nter (procedure) [code = 785101863] Future Scheduled 2029-03-23 Screening for malignant [facility] Test 00:00:00 neoplasm of colon Medical Ce nter (procedure) [code = 943968490] Future Scheduled 2029-03-23 Screening for malignant [facility] Test 00:00:00 neoplasm of colon Medical Ce nter (procedure) [code = 506968637] Future Scheduled 2029-03-23 Screening for malignant [facility] Test 00:00:00 neoplasm of colon Medical Ce nter (procedure) [code = 730205088] Future Scheduled 2029-03-23 Screening for malignant [facility] Test 00:00:00 neoplasm of colon Medical Ce nter (procedure) [code = 337441677] Future Scheduled 2029-03-23 Screening for malignant [facility] Test 00:00:00 neoplasm of colon Medical Ce nter (procedure) [code = 018784230] Future Scheduled 2029-03-23 Screening for malignant [facility] Test 00:00:00 neoplasm of colon Medical Ce nter (procedure) [code = 514014444] Future Scheduled 2029-03-23 Screening for malignant [facility] Test 00:00:00 neoplasm of colon Medical Ce nter (procedure) [code = 444704856] Future Scheduled 2029-03-23 Screening for malignant [facility] Test 00:00:00 neoplasm of colon Medical Ce nter (procedure) [code = 557079210] Future Scheduled 2029-03-23 Screening for malignant [facility] Test 00:00:00 neoplasm of colon Medical Ce nter (procedure) [code = 350683382] Future Scheduled 2029-03-23 Screening for malignant [facility] Test 00:00:00 neoplasm of colon Medical Ce nter (procedure) [code = 134137461] Future Scheduled 2029-03-23 Screening for malignant [facility] Test 00:00:00 neoplasm of colon Medical Ce nter (procedure) [code = 024048803] Future Scheduled 2029-03-23 Screening for malignant [facility] Test 00:00:00 neoplasm of colon Medical Ce nter (procedure) [code = 037056065] Future Scheduled 2029-03-23 Screening for malignant [facility] Test 00:00:00 neoplasm of colon Medical Ce nter (procedure) [code = 144280952] Future Scheduled 2029-03-23 Screening for malignant [facility] Test 00:00:00 neoplasm of colon Medical Ce nter (procedure) [code = 441623247] Future Scheduled 2029-03-23 Screening for malignant [facility] Test 00:00:00 neoplasm of colon Medical Ce nter (procedure) [code = 021310806] Future Scheduled 2029-03-23 Screening for malignant [facility] Test 00:00:00 neoplasm of colon Medical Ce nter (procedure) [code = 783516535] Future Scheduled 2029-03-23 Screening for malignant [facility] Test 00:00:00 neoplasm of colon Medical Ce nter (procedure) [code = 318823962] Future Scheduled 2029-03-23 Screening for malignant [facility] Test 00:00:00 neoplasm of colon Medical Ce nter (procedure) [code = 500066057] Future Scheduled 2029-03-23 Screening for malignant [facility] Test 00:00:00 neoplasm of colon Medical Ce nter (procedure) [code = 063560054] Future Scheduled 2029-03-23 Screening for malignant [facility] Test 00:00:00 neoplasm of colon Medical Ce nter (procedure) [code = 304822344] Future Scheduled 2029-03-23 Screening for malignant [facility] Test 00:00:00 neoplasm of colon Medical Ce nter (procedure) [code = 645136416] Future Scheduled 2029-03-23 Screening for malignant [facility] Test 00:00:00 neoplasm of colon Medical Ce nter (procedure) [code = 034880509] Future Scheduled 2029-03-23 Screening for malignant [facility] Test 00:00:00 neoplasm of colon Medical Ce nter (procedure) [code = 485168842] Future Scheduled 2029-03-23 Screening for malignant [facility] Test 00:00:00 neoplasm of colon Medical Ce nter (procedure) [code = 835996358] Future Scheduled 2029-03-23 Screening for malignant [facility] Test 00:00:00 neoplasm of colon Medical Ce nter (procedure) [code = 326129744] Future Scheduled 2029-03-23 Screening for malignant [facility] Test 00:00:00 neoplasm of colon Medical Ce nter (procedure) [code = 543859079] Future Scheduled 2029-03-23 Screening for malignant [facility] Test 00:00:00 neoplasm of colon Medical Ce nter (procedure) [code = 694520991] Future Scheduled 2029-03-23 Screening for malignant [facility] Test 00:00:00 neoplasm of colon Medical Ce nter (procedure) [code = 861304122] Future Scheduled 2029-03-23 Screening for malignant [facility] Test 00:00:00 neoplasm of colon Medical Ce nter (procedure) [code = 857264027] Future Scheduled 2029-03-23 Screening for malignant [facility] Test 00:00:00 neoplasm of colon Medical Ce nter (procedure) [code = 830060219] Future Scheduled 2029-03-23 Screening for malignant [facility] Test 00:00:00 neoplasm of colon Medical Ce nter (procedure) [code = 172901539] Future Scheduled 2029-03-23 Screening for malignant [facility] Test 00:00:00 neoplasm of colon Medical Ce nter (procedure) [code = 914573657] Future Scheduled 2029-03-23 Screening for malignant [facility] Test 00:00:00 neoplasm of colon Medical Ce nter (procedure) [code = 379687309] Future Scheduled 2029-03-23 Screening for malignant [facility] Test 00:00:00 neoplasm of colon Medical Ce nter (procedure) [code = 657793641] Future Scheduled 2029-03-23 Screening for malignant [facility] 00:00:00 neoplasm of colon [facility] (procedure) [code = [id number]] Future Scheduled 2029-03-23 Screening for malignant [facility] 00:00:00 neoplasm of colon [facility] (procedure) [code = [id number]] Future Scheduled 2029-03-23 Screening for malignant [facility] 00:00:00 neoplasm of colon [facility] (procedure) [code = 545228034] Future Scheduled 2029-03-23 Screening for malignant [facility] 00:00:00 neoplasm of colon [facility] (procedure) [code = 012756120] Future Scheduled 2029-03-23 Screening for malignant [facility] 00:00:00 neoplasm of colon [facility] (procedure) [code = 415931900] Future Scheduled 2029-03-23 Screening for malignant [facility] 00:00:00 neoplasm of colon [facility] (procedure) [code = 147267240] Future Scheduled 2029-03-23 Screening for malignant [facility] 00:00:00 neoplasm of colon [facility] (procedure) [code = 818403255] Future Scheduled 2029-03-23 Screening for malignant [facility] 00:00:00 neoplasm of colon [facility] (procedure) [code = 328701434] Future Scheduled 2029-03-23 Screening for malignant [facility] 00:00:00 neoplasm of colon [facility] (procedure) [code = 732130382] Future Scheduled 2029-03-23 Screening for malignant [facility] 00:00:00 neoplasm of colon [facility] (procedure) [code = 587399606] Future Scheduled 2029-03-23 Screening for malignant [facility] 00:00:00 neoplasm of colon [facility] (procedure) [code = 794370796] Future Scheduled 2029-03-23 Screening for malignant [facility] 00:00:00 neoplasm of colon [facility] Ce [facility] (procedure) [code = 793436535] Future Scheduled 2029-03-23 Screening for malignant [facility] 00:00:00 neoplasm of colon [facility] (procedure) [code = 415742490] Future Scheduled 2029-03-23 Screening for malignant [facility] 00:00:00 neoplasm of colon [facility] (procedure) [code = 371475206] Future Scheduled 2029-03-23 Screening for malignant [facility] 00:00:00 neoplasm of colon [facility] (procedure) [code = 789575684] Future Scheduled 2029-03-23 Screening for malignant [facility] 00:00:00 neoplasm of colon [facility] (procedure) [code = 637173173] Future Scheduled 2029-03-23 Screening for malignant [facility] 00:00:00 neoplasm of colon [facility] (procedure) [code = 174325019] Future Scheduled 2029-03-23 Screening for malignant [facility] 00:00:00 neoplasm of colon [facility] (procedure) [code = 879519771] Future Scheduled 2029-03-23 Screening for malignant [facility] 00:00:00 neoplasm of colon [facility] (procedure) [code = 920545428] Future Scheduled 2029-03-23 Screening for malignant [facility] 00:00:00 neoplasm of colon [facility] (procedure) [code = 362326901] Future Scheduled 2029-03-23 Screening for malignant [facility] 00:00:00 neoplasm of colon [facility] (procedure) [code = 573716529] Future Scheduled 2029-03-23 Screening for malignant [facility] 00:00:00 neoplasm of colon [facility] (procedure) [code = 072182895] Future Scheduled 2029-03-23 Screening for malignant [facility] 00:00:00 neoplasm of colon [facility] (procedure) [code = 908481691] Future Scheduled 2029-03-23 Screening for malignant [facility] 00:00:00 neoplasm of colon [facility] (procedure) [code = 064043661] Future Scheduled 2023-05-24 IMM Influenza Seasonal H [...] Test 00:00:00 [code = IN[facility]UENZA VACCINE [facility] Future Scheduled 2020-02-14 SHINGLES VACCINES [...] 00:00:00 neoplasm of colon (procedure) [code = 488584506] Future Scheduled 2020-02-14 Screening for malignant [facility] 00:00:00 neoplasm of colon (procedure) [code = 274559092] Future Scheduled 2020-02-14 Screening for malignant [facility] 00:00:00 neoplasm of colon (procedure) [code = 843665684] Future Scheduled 2020-02-14 Screening for malignant [facility] 00:00:00 neoplasm of colon (procedure) [code = 311071330] Future Scheduled 2020-02-14 Screening for malignant [facility] 00:00:00 neoplasm of colon (procedure) [code = 149075538] Future Scheduled 2020-02-14 Screening for malignant [facility] 00:00:00 neoplasm of colon (procedure) [code = 277792736] Future Scheduled 2020-02-14 Screening for malignant [facility] 00:00:00 neoplasm of colon (procedure) [code = 796652552] Future Scheduled 2020-02-14 Screening for malignant [facility] 00:00:00 neoplasm of colon (procedure) [code = 624656819] Future Scheduled 2020-02-14 Screening for malignant [facility] 00:00:00 neoplasm of colon (procedure) [code = 333274291] Future Scheduled 2020-02-14 Screening for malignant [facility] 00:00:00 neoplasm of colon (procedure) [code = 415967960] Future 2020-02-14 Screening for malignant [facility] 00:00:00 neoplasm of colon (procedure) [code = 316381045] Future Scheduled 2020-02-14 Screening for malignant [facility] 00:00:00 neoplasm of colon (procedure) [code = 863136135] Future 2020-02-14 Screening for malignant [facility] 00:00:00 neoplasm of colon (procedure) [code = 435290509] Future Scheduled 2020-02-14 Screening for malignant [facility] 00:00:00 neoplasm of colon (procedure) [code = 447877397] Future Scheduled 2020-02-14 Screening for malignant [facility] 00:00:00 neoplasm of colon (procedure) [code = 482984785] Future Scheduled 2020-02-14 Screening for malignant [facility] 00:00:00 neoplasm of colon (procedure) [code = 423937104] Future Scheduled 2020-02-14 Screening for malignant [facility] 00:00:00 neoplasm of colon (procedure) [code = 416563910] Future Scheduled 2020-02-14 Screening for malignant [facility] 00:00:00 neoplasm of colon (procedure) [code = 662660466] Future Scheduled 2020-02-14 Screening for malignant [facility] 00:00:00 neoplasm of colon (procedure) [code = 415509005] Future Scheduled 2020-02-14 Screening for malignant [facility] 00:00:00 neoplasm of colon (procedure) [code = 595976669] Future Scheduled 2020-02-14 Screening for malignant [facility] 00:00:00 neoplasm of colon (procedure) [code = 155410968] Future Scheduled 2020-02-14 Screening for malignant [facility] 00:00:00 neoplasm of colon (procedure) [code = 699346298] Future Scheduled 2020-02-14 Screening for malignant [facility] 00:00:00 neoplasm of colon (procedure) [code = 969792502] Future Scheduled 2020-02-14 Screening for malignant [facility] 00:00:00 neoplasm of colon (procedure) [code = 862386259] Future Scheduled 2020-02-14 Screening for malignant [facility] 00:00:00 neoplasm of colon (procedure) [code = 343360029] Future Scheduled 2020-02-14 Screening for malignant [facility] 00:00:00 neoplasm of colon (procedure) [code = 826552124] Future Scheduled 2020-02-14 Screening for malignant [facility] 00:00:00 neoplasm of colon (procedure) [code = 327160868] Future Scheduled 2020-02-14 Screening for malignant [facility] 00:00:00 neoplasm of colon (procedure) [code = 060068580] Future Scheduled 2020-02-14 Screening for malignant [facility] 00:00:00 neoplasm of colon (procedure) [code = 626968875] Future Scheduled 2020-02-14 [facility] VACC[facility]ES ([address] [facility] 00[facility]00:00 2) [code = [facility] VACCINES (1 of 2)] Future Scheduled 2005 Lipid panel (procedure) [facility] 00:00:00 [code = 22657131] Medical [facility]ter Future Scheduled 2005 Lipid panel (procedure) [facility] 00:00:00 [code = 02440711] Medical Ce [facility]ter Future Scheduled 2005 Lipid panel (procedure) [facility] 00:00:00 [code = 22433307] Medical Ce [facility]ter Future Scheduled 2005 Lipid panel (procedure) [facility] 00:00:00 [code = 10350325] Medical Ce [facility]ter Future Scheduled 2005 Lipid panel (procedure) [facility] 00:00:00 [code = 91077232] Medical Ce [facility]ter Future Scheduled 2005 Lipid panel (procedure) [facility] 00:00:00 [code = 16410351] Medical Ce [facility]ter Future Scheduled 2005 Lipid panel (procedure) [facility] 00:00:00 [code = 51612302] Medical Ce [facility]ter Future Scheduled 2005 Lipid panel (procedure) [facility] 00:00:00 [code = 72392146] Medical Ce [facility]ter Future Scheduled 2005 Lipid panel (procedure) [facility] 00:00:00 [code = 85256828] Medical Ce [facility]ter Future Scheduled 2005 Lipid panel (procedure) [facility] 00:00:00 [code = 46035108] Medical Ce [facility]ter Future Scheduled 2005 Lipid panel (procedure) [facility] 00:00:00 [code = 64043049] Medical Ce [facility]ter Future Scheduled 2005 Lipid panel (procedure) [facility] 00:00:00 [code = 19440147] Medical Ce [facility]ter Future Scheduled 2005 Lipid panel (procedure) [facility] 00:00:00 [code = 80914361] Medical Ce [facility]ter Future Scheduled 2005 Lipid panel (procedure) [facility] 00:00:00 [code = 94511970] Medical Ce [facility]ter Future Scheduled 2005 Lipid panel (procedure) [facility] 00:00:00 [code = 40991221] Medical Ce nter Future Scheduled 2005 Lipid panel (procedure) [facility] 00:00:00 [code = 83207121] Medical Ce [facility]ter Future Scheduled 2005 Lipid panel (procedure) [facility] 00:00:00 [code = 80717640] Medical Ce [facility]ter Future Scheduled 2005 Lipid panel (procedure) [facility] 00:00:00 [code = 54370702] Medical Ce [facility]ter Future Scheduled 2005 Lipid panel (procedure) [facility] 00:00:00 [code = 83933173] Medical Ce [facility]ter Future Scheduled 2005 Lipid panel (procedure) [facility] 00:00:00 [code = 32612342] Medical Ce [facility]ter Future Scheduled 2005 Lipid panel (procedure) [facility] 00:00:00 [code = 57665036] Medical Ce [facility]ter Future Scheduled 2005 Lipid panel (procedure) [facility] 00:00:00 [code = 94249568] Medical Ce nter Future Scheduled 2005 Lipid panel (procedure) [facility] 00:00:00 [code = 16777540] Medical Ce nter Future Scheduled 2005 Lipid panel (procedure) [facility] 00:00:00 [code = 93926596] Medical Ce nter Future Scheduled 2005 Lipid panel (procedure) [facility] 00:00:00 [code = 42854326] Medical Ce nter Future Scheduled 2005 Lipid panel (procedure) [facility] 00:00:00 [code = 14772443] Medical Ce [facility]ter Future Scheduled 2005 Lipid panel (procedure) [facility] 00:00:00 [code = 03089921] Medical Ce nter Future Scheduled 2005 Lipid panel (procedure) [facility] 00:00:00 [code = 36707770] Medical Ce nter Future Scheduled 2005 Lipid panel (procedure) [facility] 00:00:00 [code = 45018248] Medical Ce [facility]ter Future Scheduled 2005 Lipid panel (procedure) [facility] 00:00:00 [code = 19055226] Medical Ce [facility]ter Future Scheduled 2005 Lipid panel (procedure) [facility] 00:00:00 [code = 58970145] Medical Ce [facility]ter Future Scheduled 2005 Lipid panel (procedure) [facility] 00:00:00 [code = 79214714] Medical Ce nter Future Scheduled 1989 DTAP/TDAP/TD [...] [facility] [code = 069750816] Future Scheduled [address] [facility] 00[facility]00 virus screening [facility]procedure) [code = 152602330] Future Scheduled [address] [facility] 00:00:00 virus screening [facility]procedure) [code = 912476478] Future Scheduled [address] [facility] 00:00:00 virus screening [facility]procedure) [code = 662340854] Future Scheduled [address] [facility] 00:00:00 virus screening [facility] (procedure) [code = 277669414] Future Scheduled [address] [address] [facility] Test 00:00:00 [code = [facility]INE [facility] Future Scheduled 1970 Screening for malignant [facility] 00:00:00 neoplasm of colon [facility] (procedure) [code = 171955859] Future Scheduled 1970 Screening for malignant [facility] 00:00:00 neoplasm of colon [facility] (procedure) [code = 838146905] Future Scheduled 1970 Sigmoidoscopy [facility]code = [facility]] [facility] Future Scheduled 1970 CT Colonography (combo) [facility] 00:00:00 [code = CT [facility])] Future Scheduled 1970 Screening for malignant [facility] 00:00:00 neoplasm of colon [facility] (procedure) [code = 522414303] Future Scheduled 1970 Screening for malignant [facility] 00:00:00 neoplasm of colon [facility] (procedure) [code = 774867482] Future Scheduled 1970 S[facility]oidoscopy [facility] = [facility]] [facility] Future Scheduled 1970 CT Colonography (combo) [facility] 00:00:00 [code = CT [facility] ([facility])] Future Scheduled 1970 Screening for malignant [facility] 00:00:00 neoplasm of colon [facility] (procedure) [code = 263150187] Future Scheduled 1970 Screening for malignant [facility] 00:00:00 neoplasm of colon [facility] (procedure) [code = 061590903] Future Scheduled 1970 Sigmoidoscopy [facility]code = [facility]] [facility] Future Scheduled 1970 CT Colonography (combo) [facility] 00:00:00 [code = CT [facility] ([facility])] Future Scheduled 1970 Screening for malignant [facility] 00:00:00 neoplasm of colon [facility] (procedure) [code = 474631369] Future Scheduled 1970 Screening for malignant [facility] 00:00:00 neoplasm of colon [facility] (procedure) [code = 617818237] Future Scheduled 1970 Sigmoidoscopy [facility]code = [facility] S[facility]] [facility] Future Scheduled 1970 CT Colonography (combo) [facility] 00:00:00 [code = CT [facility] ([facility])] Future Scheduled 1970 Screening for malignant [facility] 00:00:00 neoplasm of colon [facility] (procedure) [code = 212578267] Future Scheduled 1970 Screening for malignant [facility] 00:00:00 neoplasm of colon [facility] (procedure) [code = 286318818] Future Scheduled 1970 Sigmoidoscopy [facility]code = [facility] S[facility]] [facility] Future Scheduled 1970 CT Colonography (combo) [facility] 00:00:00 [code = CT [facility] ([facility])] Future Scheduled 1970 Screening for malignant [facility] 00:00:00 neoplasm of colon [facility] (procedure) [code = 510784937] Future Scheduled 1970 Screening for malignant [facility] 00:00:00 neoplasm of colon [facility] (procedure) [code = 919348057] Future Scheduled 1970 Sigmoidoscopy [facility]code = [facility] S[facility]] [facility] Future Scheduled 1970 CT Colonography (combo) [facility] 00:00:00 [code = CT [facility] ([facility])] Future Scheduled 1970 Screening for malignant [facility] 00:00:00 neoplasm of colon [facility] Ce [facility] (procedure) [code = 323536988] Future Scheduled 1970 Screening for malignant [facility] 00:00:00 neoplasm of colon [facility] (procedure) [code = 245663220] Future Scheduled 1970 Sigmoidoscopy [facility]code [facility] S[facility]oscopy] [facility] Future Scheduled 1970 CT Colonography (combo) [facility] 00:00:00 [code = CT [facility] ([facility])] Future Scheduled 1970 Screening for malignant [facility] 00:00:00 neoplasm of colon [facility] (procedure) [code = 254626472] Future Scheduled 1970 Screening for malignant [facility] 00:00:00 neoplasm of colon [facility] Ce [facility] (procedure) [code = 619367145] Future Scheduled 1970 S[facility]oidoscopy [facility]] [facility] Future Scheduled 1970 CT Colonography (combo) [facility] 00:00:00 [code = CT [facility] ([facility])] Future Scheduled 1970 Screening for malignant [facility] 00:00:00 neoplasm of colon Medical Ce [facility] (procedure) [code = 369942344] Future Scheduled 1970 Screening for malignant [facility] 00:00:00 neoplasm of colon [facility] Ce [facility] (procedure) [code = 016645179] Future Scheduled 1970 Sigmoidoscopy [facility]code [facility] S[facility]oscopy] [facility] Future Scheduled 1970 CT Colonography (combo) [facility] 00:00:00 [code = CT [facility] ([facility])] Future Scheduled 1970 Screening for malignant [facility] 00:00:00 neoplasm of colon Medical Ce [facility] (procedure) [code = 873203863] Future Scheduled 1970 Screening for malignant [facility] 00:00:00 neoplasm of colon [facility] Ce [facility] (procedure) [code = 822426197] Future Scheduled 1970 Sigmoidoscopy [facility]code = [facility] S[facility]oscopy] [facility] Future Scheduled 1970 CT Colonography (combo) [facility] 00:00:00 [code = CT [facility] ([facility])] Future Scheduled 1970 Screening for malignant [facility] 00:00:00 neoplasm of colon [facility] (procedure) [code = 487991054] Future Scheduled 1970 Screening for malignant [facility] 00:00:00 neoplasm of colon [facility] Ce [facility] (procedure) [code = 134350304] Future Scheduled 1970 S[facility]oidoscopy [facility]code [facility]oscopy] [facility] Future Scheduled 1970 CT Colonography (combo) [facility] 00:00:00 [code = CT [facility] ([facility])] Future Scheduled 1970 Screening for malignant [facility] 00:00:00 neoplasm of colon Medical Ce [facility] (procedure) [code = 417851489] Future Scheduled 1970 Screening for malignant [facility] 00:00:00 neoplasm of colon [facility] (procedure) [code = 831891153] Future Scheduled 1970 Sigmoidoscopy [facility]code = [facility] S[facility]oscopy] [facility] Future Scheduled 1970 CT Colonography (combo) [facility] 00:00:00 [code = CT [facility] ([facility])] Future Scheduled 1970 Screening for malignant [facility] 00:00:00 neoplasm of colon Medical Ce [facility] (procedure) [code = 529643286] Future Scheduled 1970 Screening for malignant [facility] 00:00:00 neoplasm of colon Medical Ce [facility] (procedure) [code = 292301613] Future Scheduled 1970 Sigmoidoscopy [facility]code = [facility]] [facility] Future Scheduled 1970 CT Colonography (combo) [facility] 00:00:00 [code = CT [facility] ([facility])] Future Scheduled 1970 Screening for malignant [facility] 00:00:00 neoplasm of colon Medical Ce [facility] (procedure) [code = 896459860] Future Scheduled 1970 Screening for malignant [facility] 00:00:00 neoplasm of colon Medical Ce [facility] (procedure) [code = 678558068] Future Scheduled 1970 Sigmoidoscopy [facility]code = [facility] S[facility]oscopy] [facility] Future Scheduled 1970 CT Colonography (combo) [facility] 00:00:00 [code = CT [facility] ([facility])] Future Scheduled 1970 Screening for malignant [facility] 00:00:00 neoplasm of colon Medical Ce [facility] (procedure) [code = 332324589] Future Scheduled 1970 Screening for malignant [facility] 00:00:00 neoplasm of colon Medical Ce [facility] (procedure) [code = 432003567] Future Scheduled 1970 Sigmoidoscopy [facility]code = [facility] S[facility]oidoscopy] [facility] Future Scheduled 1970 CT Colonography (combo) [facility] 00:00:00 [code = CT [facility] ([facility])] Future Scheduled 1970 Screening for malignant [facility] 00:00:00 neoplasm of colon Medical Ce [facility] (procedure) [code = 206641674] Future Scheduled 1970 Screening for malignant [facility] 00:00:00 neoplasm of colon Medical Ce [facility] (procedure) [code = 036221741] Future Scheduled 1970 Sigmoidoscopy [facility]code = [facility] S[facility]oidoscopy] [facility] S[facility] Future Scheduled 1970 CT Colonography (combo) [facility] 00:00:00 [code = CT [facility] ([facility])] Future Scheduled 1970 Screening for malignant [facility] 00:00:00 neoplasm of colon Medical Ce [facility] (procedure) [code = 562821636] Future Scheduled 1970 Screening for malignant [facility] 00:00:00 neoplasm of colon Medical Ce [facility] (procedure) [code = 158475963] Future Scheduled 1970 Sigmoidoscopy [facility]code = [facility] S[facility]oscopy] [facility] Future Scheduled 1970 CT Colonography (combo) [facility] 00:00:00 [code = CT [facility] ([facility])] Future Scheduled 1970 Screening for malignant [facility] 00:00:00 neoplasm of colon Medical Ce [facility] (procedure) [code = 635605886] Future Scheduled 1970 Screening for malignant [facility] 00:00:00 neoplasm of colon Medical Ce [facility] (procedure) [code = 003815175] Future Scheduled 1970 Sigmoidoscopy [facility]code = [facility] S[facility]oscopy] [facility] Future Scheduled 1970 CT Colonography (combo) [facility] 00:00:00 [code = CT [facility] ([facility])] Future Scheduled 1970 Screening for malignant [facility] 00:00:00 neoplasm of colon Medical Ce [facility] (procedure) [code = 744220505] Future Scheduled 1970 Screening for malignant [facility] 00:00:00 neoplasm of colon Medical Ce [facility] (procedure) [code = 790811697] Future Scheduled 1970 Sigmoidoscopy [facility]code = [facility] S[facility]oscopy] [facility] Future Scheduled 1970 CT Colonography (combo) [facility] 00:00:00 [code = CT [facility] ([facility])] Future Scheduled 1970 Screening for malignant [facility] 00:00:00 neoplasm of colon Medical Ce [facility] (procedure) [code = 051599866] Future Scheduled 1970 Screening for malignant [facility] 00:00:00 neoplasm of colon Medical Ce [facility]ter (procedure) [code = 050409039] Future Scheduled 1970 Sigmoidoscopy [facility]code = [facility] S[facility]oscopy] [facility] Future Scheduled 1970 CT Colonography (combo) [facility] 00:00:00 [code = CT [facility] ([facility])] Future Scheduled 1970 Screening for malignant [facility] 00:00:00 neoplasm of colon Medical Ce [facility] (procedure) [code = 776294287] Future Scheduled 1970 Screening for malignant [facility] 00:00:00 neoplasm of colon Medical Ce [facility] (procedure) [code = 092746075] Future Scheduled 1970 Sigmoidoscopy [facility]code = [facility] S[facility]oscopy] [facility] Future Scheduled 1970 CT Colonography (combo) [facility] 00:00:00 [code = CT [facility] ([facility])] Future Scheduled 1970 Screening for malignant [facility] 00:00:00 neoplasm of colon Medical Ce [facility] (procedure) [code = 843194610] Future Scheduled 1970 Screening for malignant [facility] 00:00:00 neoplasm of colon Medical Ce [facility] (procedure) [code = 319648167] Future Scheduled 1970 Sigmoidoscopy [code = [facility] S[facility]oscopy] [facility] Future Scheduled 1970 CT Colonography (combo) [facility] 00:00:00 [code = CT [facility] ([facility])] Future Scheduled 1970 Screening for malignant [facility] 00:00:00 neoplasm of colon Medical Ce [facility] (procedure) [code = 068745139] Future Scheduled 1970 Screening for malignant [facility] 00:00:00 neoplasm of colon [facility] Ce [facility] (procedure) [code = 150777756] Future Scheduled 1970 Sigmoidoscopy [code = [facility] S[facility]oidoscopy] [facility] Future Scheduled 1970 CT Colonography (combo) [facility] 00:00:00 [code = [facility] ([facility])] Future Scheduled 1970 Screening for malignant [facility] 00:00:00 neoplasm of colon Medical Ce [facility] (procedure) [code = 990425501] Future Scheduled 1970 Screening for malignant [facility] 00:00:00 neoplasm of colon Medical Ce [facility] (procedure) [code = 014169365] Future Scheduled 1970 Sigmoidoscopy [facility]code [facility] S[facility]oscopy] [facility] Future Scheduled 1970 CT Colonography (combo) [facility] 00:00:00 [code = CT [facility] ([facility])] Future Scheduled 1970 Screening for malignant [facility] 00:00:00 neoplasm of colon Medical Ce [facility] (procedure) [code = 814384304] Future Scheduled 1970 Screening for malignant [facility] 00:00:00 neoplasm of colon Medical Ce [facility] (procedure) [code = 144693367] Future Scheduled 1970 S[facility]oidoscopy [facility]code [facility]] Medical Cente r Future Scheduled 1970 CT Colonography (combo) [facility] [code = CT Colonography [facility] (combo)] Future Scheduled 1970 Screening for malignant [facility] 00:00:00 neoplasm of colon Medical Ce nter (procedure) [code = 348982828] Future Scheduled 1970 Screening for malignant [facility] 00:00:00 neoplasm of colon Medical Ce nter (procedure) [code = 179066639] Future Scheduled 1970 Sigmoidoscopy [facility]code [facility] S[facility]oscopy] Medical Cente r Future Scheduled 1970 CT Colonography (combo) [facility] 00:00:00 [code = CT Colonography [facility] (combo)] Future Scheduled 1970 Screening for malignant [facility] 00:00:00 neoplasm of colon Medical Ce nter (procedure) [code = 461324273] Future Scheduled 1970 Screening for malignant [facility] 00:00:00 neoplasm of colon Medical Ce nter (procedure) [code = 571997598] Future Scheduled 1970 Sigmoidoscopy [facility]code [facility] S[facility]oidoscopy] Medical Angele r Future Scheduled 1970 CT Colonography (combo) [facility] 00:00:00 [code = CT Colonography [facility] (combo)] Future Scheduled 1970 Screening for malignant [facility] 00:00:00 neoplasm of colon Medical Ce nter (procedure) [code = 206328223] Future Scheduled 1970 Screening for malignant [facility] 00:00:00 neoplasm of colon Medical Ce nter (procedure) [code = 647869073] Future Scheduled 1970 Sigmoidoscopy [facility]code = [facility] Sigmoidoscopy] Medical Angele r Future Scheduled 1970 CT Colonography (combo) [facility] 00:00:00 [code = CT Colonography [facility] (combo)] Future Scheduled 1970 Screening for malignant [facility] 00:00:00 neoplasm of colon Medical Ce nter (procedure) [code = 776254418] Future Scheduled 1970 Screening for malignant [facility] 00:00:00 neoplasm of colon Medical Ce nter (procedure) [code = 221961349] Future Scheduled 1970 Sigmoidoscopy [facility]code [facility] Sigmoidoscopy] Medical Angele r Future Scheduled 1970 CT Colonography (combo) [facility] 00:00:00 [code = CT Colonography [facility] (combo)] Future Scheduled 1970 Screening for malignant [facility] 00:00:00 neoplasm of colon Medical Ce nter (procedure) [code = 908016170] Future Scheduled 1970 Screening for malignant [facility] 00:00:00 neoplasm of colon Medical Ce nter (procedure) [code = 146029571] Future Scheduled 1970 Sigmoidoscopy [facility]code = [facility] [code = CT Colonography [facility] (combo)] Future Scheduled 1970 Screening for malignant [facility] 00:00:00 neoplasm of colon Medical Ce nter (procedure) [code = 029364421] Future Scheduled 1970 Screening for malignant [facility] 00:00:00 neoplasm of colon Medical Ce nter (procedure) [code = 859456159] Future Scheduled 1970 Sigmoidoscopy [facility]code [facility] S[facility]oscopy] Medical Cente r Encounters Start End Encounter Admission Attending Care Care Encounter Source Date/Time Date/Time Type Type Clinicians Facility Department ID 2021-06-[address] [facility] [id number] Univers 05:25:12 ity [facility] 2021-06-[address] [facility] [id number] Univers 01:41:18 ity [facility] 2021-06-[address] [facility] [id number] Univers 22:38:17 ity of [facility] 2021-06-[address] [facility] [id number] Univers 21:40:44 ity of [facility] 2021-06-[address] [facility] [id number] Univers 13:55:03 ity of [facility] 2021-06-[address] [facility] [id number] Univers 05:54:16 ity of [facility] 2021-06-[address] [facility] [id number] Univers 22:33:24 ity of [facility] 2021-06-[address] [facility] [id number] Univers 22:33:24 ity of [facility] 2021-06-[address] [facility] [id number] Univers 22:22:08 ity of [facility] 2021-06-[address] [facility] [id number] Univers 20:04:56 ity of [facility] 2021-06-[address] [facility] [id number] Univers 19:53:56 ity of [facility] 2021-06-[address] [facility] [id number] Univers 19:37:27 ity of [facility] 2021-06-[address] [facility] [id number] Univers 19:36:41 ity of [facility] 2021-06-[address] [facility] [id number] Univers 17:11:26 ity of [facility] 2021-06-[address] [facility] [id number] Univers 16:44:38 ity of [facility] 2021-06-[address] [facility] [id number] Univers 11:19:16 ity of [facility] 2021-06-[address] [facility] [id number] Univers 10:16:06 ity of [facility] 2021-06-[address] [facility] [id number] Univers 06:08:42 ity of [facility] 2021-06-[address] [facility] [id number] Univers 04:43:23 ity of [facility] 2021-06-[address] [facility] [id number] Univers 04:42:49 ity of [facility] 2021-06-20 Emergency Rajan SCHAFFER [facility] PAKO [id number] Univers 18:31:02 OSMAR [facility] 2020-02-23 Inpatient HCAPM LENNY [id number] [facility] 18:42:00 89 [facility] 2020-02-17 Inpatient SEAN Nova, HCAPM BRET [id number] [facility] 00:22:00 Oladipo 75 [facility] 2020-01-05 Inpatient MORIS Perea, HCAPM MEDI.01 [id number] [facility] 20:23:00 Mark 40 [facility] 2019-12-13 Inpatient HCAMN JULIA [id number] [facility] 17:52:00 47 [facility] 2023-03-20 2023-03-20 Emergency X [facility], [facility] ERT [id number] Univers 14:28:00 17:50:00 SABI [facility] 2023-03-20 2023-03-20 Emergency [facility] 1.2.259.261 [id number] Univers 14:28:00 17:50:00 [facility] 350.1.13.10 it [place] [phone] [facility] 014 Branch (CLC) 2023-02-12 2023-02-12 Orders Doctor BERNARDO 1.2.840.114 [id number] Univers 00:00:00 00:00:00 Only Unassigned, [place] 350.1.13.10 ity of [place] [facility] 4.2.7.2.686 Javi as [id number] [facility] 009 Branch 2023-02-02 2023-02-[address] [facility] [id number] Univers 11:00:00 11:00:00 ity of [facility] 2023-01-29 2023-01-29 Transition MELANIE Vallejo 1.2.840.114 [id number] Univers 00:00:00 00:00:00 of Care Emili RECINOS 350.1.13.10 [place] [id number] [facility] 403 Branch 2023-01-27 2023-01-28 Inpatient Beau OCHOA [facility] PAKO [id number] Univers 16:04:00 16:30:00 BERNARDO atwood [facility] 2023-01-27 2023-01-28 Hospital MARGARITA Ochoa 1.2.840.114 [id number] Univers 16:04:00 16:30:00 Encounter Bernardo PORTER 350.1.13.10 ity of [facility] 4.2.7.2.686 Javi as [id number] [facility] 092 Branch 2023-01-27 2023-01-27 Emergency EM Ogeribadejo, HCACL AERS [id number] [facility] 08:58:00 14:58:00 Oluwadolapo 72 [facility] 2023-01-26 2023-01-26 Emergency X LIDA [facility] ERT [id number] Univers 18:31:00 23:50:00 LAMONT atwood [facility] 2023-01-26 2023-01-26 [facility] 1.2.607.789 [id number] Univers 18:31:00 23:50:00 [facility] 350.1.13.10 [place] [phone] [address] ([facility]) 2022-12-22 2022-12-[address] [facility] [id number] Univers 11:15:00 11:15:00 ity [facility] 2022-12-19 2022-12-19 Patient Laura Turcios 1.2.840.114 [id number] Univers 00:00:00 00:00:00 Outreach GRISEL 350.1.13.10 i ty of [place] [id number] [facility] 403 Branch 2022-12-14 2022-12-14 Emergency X STACEY SHARP [facility] ERT [id number] Univers 16:44:00 19:27:00 STACEY SHARP [facility] 2022-12-14 2022-12-14 Emergency Salvador, TRAU[place] 1.2.840.114 [id number] Univers 16:44:00 19:27:00 [facility] 350.1.13.10 it [place] [id number] [facility] 014 Branch 2022-12-10 2022-12-10 Patient Laura Turcios MELANIE 1.2.840.114 10 [id number] Univers 00:00:00 00:00:00 Outreach GRISEL 350.1.13.10 i ty [place] [id number] [facility] 403 Branch 2022-12-10 2022-12-10 Transition MELANIE Vallejo 1.2.840.114 [id number] Univers 00:00:00 00:00:00 of Care Emili RECINOS 350.1.13.10 ity of [place]2.7.2.[place] [id number] [facility] 403 Branch 2022-11-27 2022-12-09 Inpatient U [facility] PAKO [id number] Univers 08:00:00 17:36:00 ity of [facility] 2022-11-27 2022-12-09 Hospital Dwain Junior 1.2.8 40.114 [id number] Univers 08:00:00 17:36:00 Encounter Bharat Medrano 350.1.1 3.10 ity of [facility] 4.2.7.2.686 [place] [id number] [facility] 091 Branch 2022-12-04 2022-12-04 Surgery [facility] MARGARITA 1.2.840.114 10 [id number] Univers 11:18:00 16:48:00 [place] 350.1.13.10 it y of HOSPITAL 4.2.7.2.686 Javi as [id number] [facility] 103 Branch 2022-11-26 2022-11-26 Patient Doctor BERNARDO 1.2.840.114 [id number] Univers 00:00:00 00:00:00 Secure Msg Unassigned, [place] 350.1.13.10 ity of [place] [facility] 4.2.7.2.686 Javi as [id number] [facility] 019 Branch 2022-11-25 2022-11-25 Transition MELANIE Mei 1.2.840.114 10 [id number] Univers 00:00:00 00:00:00 of Care Sandy Lopez RECINOS 350.1.13.10 i [place] [id number] [facility] 403 Branch 2022-11-24 2022-11-24 Patient Laura Turcios MELANIE 1.2.840.114 10 [id number] Univers 00:00:00 00:00:00 Outreach RECINOS 350.1.13.10 i ty [place] [id number] [facility] 403 Branch 2022-11-19 2022-11-22 Inpatient X HERNÁNDEZ [facility] [id number] Univers 09:51:00 14:07:00 MONTSERRAT it y of [facility] 2022-11-19 2022-11-22 Hospital Constantin Perez 1.2.840. 114 [id number] Univers 09:51:00 14:07:00 Encounter Montserrat Hernández 350.1.13 .10 ity of HOSPITAL 4.2.7.2.686 Javi as [id number] [facility] 095 Branch 2022-11-21 2022-11-21 Transition MELANIE Vallejo 1.2.840.114 101 [id number] Univers 00:00:00 00:00:00 of Care Emili RECINOS 350.1.13.10 [place] [id number] [facility] 403 Branch 2022-11-14 2022-11-14 Patient Doctor BERNARDO 1.2.840.114 [id number] Univers 00:00:00 00:00:00 Secure Msg Unassigned, [place] 350.1.13.10 ity of [place] HOSPITAL 4.2.7.2.686 Javi as [id number] [facility] 019 Branch 2022-11-14 2022-11-14 Patient Doctor BERNARDO 1.2.840.114 [id number] Univers 00:00:00 00:00:00 Secure Msg Unassigned, [place] 350.1.13.10 ity of [place] HOSPITAL 4.2.7.2.686 Javi as [id number] [facility] 019 Branch 2022-11-07 2022-11-07 Transition MELANIE Valdes 1.2.840.114 101 [id number] Univers 00:00:00 00:00:00 of Care Miryam RECINOS 350.1.13.10 [place] [id number] [facility] 403 Branch 2022-11-02 2022-11-06 Inpatient X ALEXIS [facility] [id number] Univers 07:47:00 13:27:00 BHARAT ity of [facility] 2022-11-02 2022-11-06 Hospital Danay Gordillo 1.2.840. 114 [id number] Univers 07:47:00 13:27:00 Encounter Bharat Medrano 350.1.1 3.10 ity of HOSPITAL 4.2.7.2.686 Javi as [id number] [facility] 095 Branch 2022-10-28 2022-10-28 Telephone [facility] 1.2.840.114 10 [id number] Univers 00:00:00 00:00:00 [facility] 350.1.13.10 it[place] of [place] - [phone] Med ical [facility] 408 Branch 2022-10-28 2022-10-28 Medical Center Clinic 1.2.840.114 [id number] Univers 00:00:00 00:00:00 (Out) [facility] SPECIALTY 350.1.13.10 ity of Gastroenter CARE 4.2.7.2.686 [facility] AT [phone] Fl abundioadalberto PARDO 072 [facility] 2022-10-27 2022-10-27 Outpatient R [facility] [id number] Univers 14:00:00 14:00:00 ORPHEUS ity of [facility] 2022-10-22 2022-10-22 Telephone [facility] 1.2.840.114 10 [id number] Univers 00:00:00 00:00:00 Orpheus [facility] 350.1.13.10 ity of [place] - [id number] Med ical [facility] 408 Branch 2022-10-22 2022-10-22 Patient Doctor BERNARDO 1.2.840.114 [id number] Univers 00:00:00 00:00:00 Secure Msg Unassigned, [place] 350.1.13.10 ity of [place] [facility] 4.2.7.2.686 Javi as [id number] [facility] 019 Branch 2022-10-19 2022-10-19 Emergency X GEOVANNA, [facility] ERT [id number] Univers 19:16:00 22:32:00 FOLUSHO ity of [facility] 2022-10-19 2022-10-19 Emergency Ibikunle, TRAUMA 1.2.840.114 10 [id number] Univers 19:16:00 22:32:00 [facility] 350.1.13.10 it[place] [id number] [facility] 014 Branch 2022-05-22 2022-05-22 Transition MELANIE Vallejo 1.2.840.114 [id number] Univers 00:00:00 00:00:00 of Care Emili RECINOS 350.1.13.10 [place] [id number] [facility] 403 Branch 2022-05-19 2022-05-21 Inpatient X CLAIRE [facility] [id number] Univers 19:15:00 15:48:00 PATEL ity of [facility] 2022-05-19 2022-05-21 Hospital Charleemelissasindi Parkerchloe [facility] 1.2.840. 114 [id number] Univers 19:15:00 15:48:00 Encounter Eros Rios 350.1.13.10 ity of Patel Rangel 4.2.7.2.686 [facility] [id number] [facility] 080 Branch 2022-05-21 2022-05-21 Patient Saira Goodman 1.2.840.114 [id number] Univers 00:00:00 00:00:00 Outreach E RECINOS 350.1.13.10 i ty of [place] [id number] [facility] 403 Branch 2022-04-14 2022-04-14 Transition ASIA ValdesEddie 1.2.840.114 [id number] Univers 00:00:00 00:00:00 of Care Miryam TRINIDADY 350.1.13.10 it y [place] [id number] [facility] 403 [place] 2022-04-09 2022-04-10 Emergency X [facility] ERT [id number] Univers 20:38:00 00:14:00 FOLUSHO ity of [facility] 2022-04-09 2022-04-10 Emergency [facility] 1.2.840.114 [id number] Univers 20:38:00 00:14:00 Alvarez OROPEZA 350.1.13.10 ity of [place] 4.2.7.2.[address] [facility] [id number] [facility] 084 Branch 2022-04-09 2022-04-09 Transition ASIA ValdesEddie 1.2.840.114 [id number] Univers 00:00:00 00:00:00 of Care Miryam TRINIDADY 350.1.13.10 [place] [id number] [address] 2022-04-02 2022-04-08 [facility] [id number] Univers 11:42:00 12:30:00 rai LORA [facility] 2022-04-02 2022-04-08 Hospital Rekha Sheehan [facility] 1.2.840.11 [id number] Univers 11:42:00 12:30:00 Encounter Juventino Thomas [facility] 350.1.13.10 ity of [place] Lora 4.2.7.2.686 [place] [phone] [address] ([facility]) 2022-03-29 2022-03-29 Emergency EM Bridgett, HCACL AERS [id number] [facility] 14:26:00 16:45:00 Sabi Adams [facility] 2022-03-29 2022-03-29 Emergency EM Bridgett HCACL HCACL [id number] [facility] 14:26:00 16:45:00 Sabi [id number] [facility] 2022-03-13 2022-03-13 Emergency MOE JAMIE 1.2.840.114 [id number] Lynne 15:33:00 20:25:00 GENERAL 350.1.13.43 [facility] .2.7.2.6869 [id number] 3337-07-21 2022-03-13 [facility] [id number] Lynne 00:00:00 00:00:00 [facility] 2022-03-06 2022-03-09 Inpatient ER ANYALEONIDAS MERAZ [facility] Emergency 20 [id number] SLE 12:16:00 12:55:00 2022-03-06 2022-03-09 Hospital [facility] [id number] 12:16:[facility] 12:55:[address] [facility] Shiela, Pao Ramos [facility], Leonidas Bain Colin 2022-03-06 2022-03-06 Orders [facility] [id number] 00:00:00 00:00:00 Only [facility] 2022-03-06 2022-03-06 Travel [facility] [id number] [facility] 00:[facility] 00:00:00 [facility] 2022-02-18 2022-02-20 Emergency Mitzi CarbajalB 1.2.8 40.114 [id number] Lynne 13:58:00 11:55:00 Alona Clavert GENERAL 350.1.13.43 [facility] .2.7.2.6869 Fannie Blake [id number] 9327-06-28 2022-02-18 Emergency [facility] [id number] [place] 15:19:05 15:23:18 MITZI [facility] 2022-02-18 2022-02-[address] [facility] [id number] [place] 13:58:00 13:58:00 [facility] 2022-02-18 2022-02-[address] [facility] [id number] [place] 00:00:00 00:00:00 , OSCAR Daniels 2022-02-07 2022-02-11 [facility] 1.2.840.1 14 [id number] [place] 13:40:00 13:22:00 Encounter Daily Islas [facility] 350.1.13.43 [facility] [place] .2.7.2.6869 [id number] 0854-06-17 2022-02-[address] [facility] [id number] [place] 13:40:00 13:40:00 [facility] 2022-01-30 2022-01-30 Emergency [facility] [id number] [facility] 17:02:00 18:29:00 Dwain 53 [facility] 2022-01-30 2022-01-30 Emergency [facility] [id number] [facility] 17:02:00 18:29:00 Dwain [id number] [facility] 2022-01-22 2022-01-22 Emergency [facility] [id number] 7 [place] 17:24:00 20:39:00 [facility] 2022-01-16 2022-01-21 Emergency Raymon Martin [facility] [id number] 11915 [place] 11:04:00 18:08:00 Karin Bassett [facility] Sushil Loera Parth P 2022-01-19 2022-01-[address] [facility] [id number] [place] 12:34:08 13:29:31 Health 2022-01-16 2022-01-[address] [facility] [id number] [place] 19:42:28 20:01:28 Health 2022-01-16 2022-01-[address] [facility] [id number] [place] 11:04:00 11:04:00 KARIN boss 2022-01-10 2022-01-11 Emergency Bert Reed [facility] [id number] [place] 10:58:00 11:20:00 Justin Helene [facility] Merissa Richards 2022-01-10 2022-01-10 Outpatient 1 JUSTIN, [facility] [id number] [place] 10:58:00 10:58:00 HELENE [facility] 2022-01-08 2022-01-09 Emergency [facility] [id number] 9 [place] 17:57:00 02:50:00 [facility] 2022-01-08 2022-01-[address] [facility] [id number] [place] 21:40:34 21:50:19 [facility] 2021-09-23 2021-09-23 Emergency EM Raffaele Levi [facility] [id number] [facility] 19:35:00 21:10:[address] [place] [address] 2021-09-13 2021-09-13 Emergency X HARKEY, [facility] ERT [id number] Univers 21:20:00 22:36:00 MICKEY ity [facility] 2021-09-13 2021-09-13 Emergency [place] 1.2.439.984 [id number] Univers 21:20:00 22:36:00 Mickey A [facility] 350.1.13.10 it y of [place] 4.2.7.2.686 [facility] [id number] [address] ([facility]) 2021-09-13 2021-09-13 Emergency EM Raffaele Levi [facility] AERS [id number] [facility] 14:57:00 16:37:00 06 [facility] 2021-09-12 2021-09-12 Emergency X MORRICAL, [facility] ERT [id number] Univers 14:25:00 17:51:00 DWAIN ity [facility] 2021-09-12 2021-09-12 Emergency Morrical, TRAU[place] 1.2.840.114 [id number] Univers 14:25:00 17:51:00 [facility] 350.1.13.10 it[place].686 [place] [id number] [address] 2021-09-12 2021-09-12 Emergency [facility] [id number] Univers 06:20:00 10:10:00 CONSTANTIN ity of [facility] 2021-09-12 2021-09-12 Emergency Alona Carty [place] 1.2.840 .114 [id number] Univers 06:20:00 10:10:00 Constantin Concepcion [place] 350.1.13.10 [place] [id number] [address] 2021-09-08 2021-09-09 Emergency Rajan [facility] ERT [id number] Univers 23:01:00 01:30:00 SEBASTIAN ity of [facility] 2021-09-08 2021-09-09 Emergency Tara, TRAU[place] 1.2.516.134 [id number] Univers 23:01:00 01:30:00 Sebastian Lopez [place] 350.1.13.10 [place] [id number] [address] 2021-09-07 2021-09-07 Emergency [facility] ERT [id number] Univers 19:24:00 23:44:00 SEBASTIAN ity of [facility] 2021-09-07 2021-09-07 Emergency Tara, [place] 1.2.609.448 [id number] Univers 19:24:00 23:44:00 Sebastian [facility] 350.1.13.10 [place] [id number] [address] 2021-09-06 2021-09-06 Emergency [facility] ERT [id number] Univers 15:35:00 17:52:00 SEBASTIAN ity of [facility] 2021-09-06 2021-09-06 Emergency Pacheco, TRAU[place] 1.2.264.355 [id number] Univers 15:35:00 17:52:00 Sebastian L CENTER 350.1.13.10 [place] [id number] [address] 2021-09-06 2021-09-06 MELANIE Bernstein 1.2.840.114 [id number] Univers 00:00:00 00:00:00 of Care Emili RECINOS 350.1.13.10 [place] [id number] [facility] 403 [address] 2021-08-30 2021-09-05 Inpatient X [facility] PAKO [id number] Univers 16:53:00 16:00:00 ity of [facility] 2021-08-30 2021-09-05 [facility] Gayatri Gu 1 .2.840.114 [id number] Univers 16:53:00 16:00:00 Encounter Sophia AndreaY 350.1 .13.10 ity of [facility] 4.2.7.2.686 [facility] [id number] Medical [address] 2021-09-03 2021-09-03 Surgery [facility] MARGARITA 1.2.840.114 [id number] Univers 07:15:00 10:04:00 [place] 350.1.13.10 it y of [facility] 4.2.7.2.686 Javi as [phone] [facility] [address] 2021-08-29 2021-08-29 Emergency X IBKHARILE, [facility] ERT [id number] Univers 17:15:00 20:03:00 FOLUSHO ity of [facility] 2021-08-29 2021-08-29 Emergency Ibikunle, TRAUMA 1.2.840.114 [id number] Univers 17:15:00 20:03:00 [facility] 350.1.13.10 [place] [id number] [facility] 014 Branch 2021-07-29 2021-08-05 Inpatient X [facility] PAKO [id number] Univers 20:15:00 07:43:00 ity of [facility] 2021-07-29 2021-08-05 [facility] Jonah Rees 1.2.840.1 [id number] Univers 20:15:00 07:43:00 Encounter Karin Myers 350.1.13.1 0 ity of [facility] 4.2.7.2.686 [place] [phone] [facility] [address] 2021-07-29 2021-07-29 Transition MELANIE Valle[place] 1.2.840.114 [id number] Univers 00:00:00 00:00:00 of Care Emili RECINOS 350.1.13.10 [place] [id number] [facility] [address] 2021-07-27 2021-07-27 Emergency EM Kateryna, [facility] JULIA [id number] [facility] 10:15:00 12:36:[address] [place] [address] 2021-07-23 2021-07-26 Inpatient X [facility] [id number] Univers 00:39:00 14:50:00 ity of [facility] 2021-07-23 2021-07-26 [facility] SchultzSabi 1.2.840 .114 [id number] [facility] 00:39:00 14:50:00 Encounter [facility] [place] 350.1.13.10 ity of [facility] 4.2.7.2.686 Javi as [phone] [facility] 0[address] Branch 2021-07-22 2021-07-22 Emergency EM Marcelina, [facility] [id number] [facility] 04:25:00 08:20:00 Gabriella 74 [facility] 2021-06-27 2021-06-27 Emergency EM Bridgett, [facility] [id number] [facility] 15:31:00 17:37:00 Sabi Pollard [facility] 2021-06-25 2021-06-25 Orders Doctor LOVELL 1.2.840.114 [id number] [facility] 00:00:00 00:00:00 Only Unassigned, [place] 350.1.13.10 ity of [facility] 4.2.7.2.686 Javi as [phone] [facility] 009 Branch 2021-05-31 2021-06-04 Emergency Willie Garrett [facility] 1.2.840.1 14 [id number] Univers 17:10:00 16:38:00 Clementine Castell[facility] 350.1.13.10 ity of Sabi Gann [place] 4.2.7.2.686 [place] LyleTamika Bhatt [phone] [facility] 116 [address] ([facility]) 2021-05-20 2021-05-21 Emergency Bernardo Donnelly [facility] 1.2.840.114 [id number] Univers 14:29:00 17:10:00 [facility] 350.1.13.10 [place] [phone] [facility] 116 [address] ([facility]) 2021-05-10 2021-05-10 Transition Melanie Vallejo 1.2.840.114 [id number] Univers 00:00:00 00:00:00 of Care Emili Recinos 350.1.13.10 ity of [place] [phone] [facility] 403 [address] 2021-05-07 2021-05-09 Hospital Beto Alona [facility] 1.2.840.11 [id number] Univers 19:23:00 15:26:00 Encounter Diogo [facility] 350.1.13. 10 ity of Abad Watson [place] 4.2.7.2.686 [place] [phone] [facility] 114 [address] ([facility]) 2021-04-28 2021-05-01 Inpatient [id number] [facility] 21:05:00 14:18:00 Montserrat 03 Cl [facility] 2020-09-26 2020-09-26 Emergency Jose [facility] 1.2.369.008 [id number] Univers 16:56:00 23:00:00 Mariaelena Oropeza 350.1.13.10 i ty of [place] [phone] [facility] 084 Branch 2020-08-22 2020-08-24 Emergency Funmilayo Pinzon [facility] 1.2.8 40.114 [id number] Univers 15:31:00 14:20:00 SweeneyBart malik 350.1.13.10 ity of Ori Persaud 4.2.7.2.686 [place] [phone] [facility] [address] ([facility]) 2020-07-09 2020-07-09 Emergency Eduardoendereki [facility] 1.2.840.114 [id number] Univers 16:23:00 19:43:00 , Juan M Chua 350.1.13.10 ity of [place] [phone] [facility] 014 Branch ([facility]) 2020-06-15 2020-06-15 Patient Saira Goodman 1.2.840.114 [id number] Univers 00:00:00 00:00:00 Outreach E Recinos 350.1.13.10 i ty of [place] [phone] [address] 2020-06-12 2020-06-12 Patient Saira Goodman 1.2.840.114 [id number] Univers 00:00:00 00:00:00 Outreach E Recinos 350.1.13.10 i ty of [place] [id number] [address] 2020-06-08 2020-06-08 Patient Melanie Emanuel 1.2.840.114 [id number] Univers 00:00:00 00:00:00 Outreach Mela Arvizu Recinos 350.1.13.10 ity of [place] [phone] [address] 2020-06-07 2020-06-07 Patient Saira Goodman 1.2.840.114 78 [id number] Univers 00:00:00 00:00:00 Outreach E Recinos 350.1.13.10 i ty [place] [id number] [address] 2020-06-05 2020-06-05 Emergency [facility] 1.2.840.114 78 [id number] Univers 06:47:00 10:55:00 More Oropeza 350.1.13.10 ity of [place] 4.2.7.2.686 [place] [phone] [facility] 084 [address] 2020-06-04 2020-06-04 Emergency Andrzej [facility] 1.2.472.563 [id number] Univers 10:36:00 13:38:00 [facility] 350.1.13.10 it y of [place] 4.2.7.2.[place] [phone] [facility] 014 Branch ([facility]) 2020-06-04 2020-06-04 Patient Saira Goodman 1.2.840.114 [id number] Univers 00:00:00 00:00:00 Outreach E Recinos 350.1.13.10 i ty of [place] 4.2.7.2.[place] [phone] [facility] [address] [place] 2020-06-04 2020-06-04 Patient Asia Emanueleddie 1.2.840.114 [id number] Univers 00:00:00 00:00:00 Outreach Mela Recinos 350.1.13.10 ity of [place] 4.2.7.2.[place] [phone] [facility] [address] [place] 2020-06-01 2020-06-01 Transition Melanie Vallejo 1.2.840.114 [id number] Univers 00:00:00 00:00:00 of Care Emili Trinidady 350.1.13.10 ity of [place] 4.2.7.2.[place] [phone] [facility] [address] [place] 2020-05-22 2020-05-31 Hospital Alex Lopez 1.2.840.11 4 [id number] Univers 14:42:00 18:40:00 Encounter Bia Pdero 350.1.13.10 ity of [facility] 4.2.7.2.686 Javi as [phone] [facility] 0[address] 2020-05-31 2020-05-31 Patient Saira Goodman 1.2.840.114 [id number] Univers 00:00:00 00:00:00 Outreach E Recinos 350.1.13.10 i ty [place] [id number] [address] 2020-05-23 2020-05-23 Patient Saira Goodman 1.2.840.114 78 [id number] Univers 00:00:00 00:00:00 Outreach E Recinos 350.1.13.10 i ty [place] [phone] [address] 2020-05-23 2020-05-23 Patient Saira Goodman 1.2.840.114 78 [id number] Univers 00:00:00 00:00:00 Outreach E Recinos 350.1.13.10 i ty [place] [phone] [address] 2020-05-23 2020-05-23 Patient Melanie Emanuel 1.2.840.114 [id number] Univers 00:00:00 00:00:00 Outreach Mela Nolberto Recinos 350.1.13.10 ity of [place].2.[place] [phone] [address] 2020-05-21 2020-05-[address] [facility] 1.2.491.013 [id number] Univers 20:52:00 23:41:00 [facility] 350.1.13.10 it y of [place].2.[place].2.[place] [phone] [address] ([facility]) 2020-05-20 2020-05-20 Emergency Unknown, [place] 1.2.840.114 [id number] Univers 07:04:00 15:13:00 Attending CENTER 350.1.13.10 it[place] of [place] [phone] [address] 2020-05-19 2020-05-20 Emergency [facility] 1.2.840.114 7 [id number] Univers 21:29:00 06:12:00 [facility] 350.1.13.10 it y of [place].2.[place].2.[place] [phone] [address] ([facility]) 2020-05-18 2020-05-18 Patient Saira Goodman 1.2.840.114 78 [id number] Univers 10:18:59 11:28:59 Outreach E Recinos 350.1.13.10 i ty [place].2.[place] [phone] [address] 2020-05-18 2020-05-18 Patient Melanie Emanuel 1.2.840.114 [id number] Univers 00:00:00 00:00:00 Outreach Mela Arvizu Recinos 350.1.13.10 ity of [place] 4.[place].7.2.[place] [phone] [address] 2020-05-17 2020-05-17 Patient Saira Goodmaneddie 1.2.840.114 78 [id number] Univers 00:00:00 00:00:00 Outreach E Recinos 350.1.13.10 i ty [place].2.[place] [phone] [address] 2020-05-17 2020-05-17 Patient JenaeAsiaeddie 1.2.840.114 [id number] Univers 00:00:00 00:00:00 Outreach Mela Arvizu Recinos 350.1.13.10 ity of [place] [phone] [address] 2020-05-16 2020-05-16 Patient Doctor UN[facility]ERSIT 1.2.628.823 [id number] Univers 00:00:00 00:00:00 Secure Msg Unassigned, Y HEALTH 350.1.13.10 ity of [place] [facility] 4.2.7.2.[place] [phone] [facility] [address] [place] 2020-05-15 2020-05-15 Patient Asia Emanueleddie 1.2.840.114 [id number] Univers 00:00:00 00:00:00 Outreach Mela Arvizu Recinos 350.1.13.10 ity of [place].2.[place] [id number] [address] 2020-05-14 2020-05-14 Transition Melanie Vallejo 1.2.840.114 [id number] Univers 00:00:00 00:00:00 of Care Emili Recinos 350.1.13.10 ity of [place].2.[place] [id number] [address] 2020-05-04 2020-05-12 Hospital Lora Hall 1.2. 840.114 [id number] Univers 21:09:00 14:03:00 Encounter Carol Ann Jason 350.1.13.10 ity of Hospital 4.2.7.2.686 [place] [phone] [place] [address] [place] 2020-05-10 2020-05-10 Patient Saira Goodman 1.2.840.114 78 [id number] Univers 00:00:00 00:00:00 Outreach E Recinos 350.1.13.10 i ty [place] [id number] [address] 2020-05-09 2020-05-09 Transition Melanie Vallejo 1.2.840.114 [id number] [id number] Univers 00:00:00 00:00:00 of Care Emili Recinos 350.1.13.10 ity of [place] [id number] [address] 2020-05-08 2020-05-08 Patient Saira Goodmaneddie 1.2.840.114 78 [id number] Univers 00:00:00 00:00:00 Outreach E Recinos 350.1.13.10 i ty [place]2.[place] [phone] [address] 2020-05-02 2020-05-03 Emergency [facility] 1.2.211.474 [id number] Univers 23:37:00 01:53:00 Joel Oropeza 350.1.13.10 ity of [place] 4.2.7.2.[place] [phone] [address] 2020-05-03 2020-05-03 Patient Saira Goodmaneddie 1.2.840.114 78 [id number] Univers 00:00:00 00:00:00 Outreach E Recinos 350.1.13.10 i ty [place]2.[place] [id number] [address] 2020-05-03 2020-05-03 Transition Melanie Vallejo 1.2.840.114 [id number] Univers 00:00:00 00:00:00 of Care Emili Recinos 350.1.13.10 ity of [place].7.2.[place] [phone] [facility] [address] 2020-03-30 2020-05-02 Hospital Alex Lopeznie 1.2.840.11 4 [id number] Univers 16:55:00 16:45:00 Encounter Diogo Keaney 350.1.13. 10 ity of [facility] 4.2.7.2.686 [place] [phone] [facility] 091 [address] 2020-04-06 2020-04-06 Anesthesia Aurea Sampsoned Margarita 1.2.8 40.114 [id number] Univers 09:10:00 11:29:00 Cynthia Herring 350.1.1 3.10 ity of Hospital 4.2.7.2.686 [place]avi [place] [phone] [facility] 103 [address] 2020-03-29 2020-03-29 Transition Melanie Vallejo 1.2.840.114 [id number] Univers 00:00:00 00:00:00 of Care Emili Recinos 350.1.13.10 ity of [place].2.[place] [phone] [facility] [address] [place] 2020-03-25 2020-03-28 Hospital Bernardo Donnelly [facility] 1.2.840.114 [id number] Univers 19:12:00 18:43:00 Encounter [facility] 350.1.13.1 0 ity of [place].2.[place] [phone] [facility] 113 [address] ([facility]) 2020-03-07 2020-03-07 Transition Melanie Vallejo 1.2.840.114 [id number] Univers 00:00:00 00:00:00 of Care Emili Recinos 350.1.13.10 ity of [place] 4.2.7.2.[place] [id number] [place] [address] [place] 2020-03-02 2020-03-05 Hospital RobledoSabi simons [facility] 1.2.840.11 4 [id number] Univers 19:53:34 17:23:00 Encounter Eliu Goetz Kandi 350.1.13.10 ity of [place] Du[place] 4.2.7.2.686 [place] [phone] [facility] [address] ([facility]) 2020-02-29 2020-02-29 Transition Melanie Vallejo 1.2.840.114 [id number] Univers 00:00:00 00:00:00 of Care Emili Recinos 350.1.13.10 ity of [place].2.[place] [id number] [facility] [address] 2020-02-26 2020-02-27 Hospital Juventino Mccabe 1.2.840.11 4 [id number] Univers 04:55:41 19:20:00 Encounter Bia Pedro 350.1.13.10 ity of Hospital 4.2.7.2.686 [place]avi [place] [phone] [facility] 090 [address] 2020-02-27 2020-02-27 Patient Saira Goodman Melanie 1.2.840.114 [id number] Univers 00:00:00 00:00:00 Outreach E Recinos 350.1.13.10 i ty of [place].2.[place] [id number] [facility] [address] 2020-02-25 2020-02-26 Emergency [facility] 1.2.882.337 [id number] Univers 21:25:58 03:55:00 [facility] 350.1.13.10 it y of [place].2.[place] [phone] [facility] 014 Branch ([facility]) 2020-02-24 2020-02-24 Outpatient JOE PereaO [id number] [facility] 07:51:00 07:51:00 Mark 96 [facility] 2020-02-18 2020-02-18 Outpatient JOE Nova LABO [id number] [facility] 00:26:00 00:26:00 Oladipo 05 [facility] 2020-02-07 2020-02-07 Transition Melanie Vallejo 1.2.840.114 [id number] Univers 00:00:00 00:00:00 of Care Emili Recinos 350.1.13.10 ity of [place].7.2.[place] [phone] [facility] [address] 2020-02-07 2020-02-07 Transition Melanie Vallejo 1.2.840.114 [id number] 00:00:00 00:00:00 of Care Emili Recinos 350.1.13.10 [place] 4.2.7.2.686 [id number] 403 2020-01-28 2020-02-05 Inpatient X SIMIN [facility] [id number] Univers 18:12:56 15:12:00 RADHESHYAM ity [facility] 2020-01-28 2020-02-05 [facility] Bernardo Donnelly [facility] 1.2.840.114 [id number] Univers 18:12:56 15:12:00 Encounter AhLuis Carlos [facility] 350.1.13.10 ity of [place], Radheshyam [place] 4.2.7.2.686 [facility] [phone] [facility] [address] ([facility]) 2020-01-28 2020-02-05 [facility] Bernardo Donnelly [facility] 1.2.840.114 [id number] 18:12:56 15:12:00 Encounter AhLuis Carlos kingsleyiaz Health 350.1.13.10 Simin, Radheshyam [place] 4.2.7.2.686 [place] [id number] [place] [address] ([facility]) 2020-01-24 2020-01-26 Emergency RobledoSabi simons [facility] 1.2.840.1 14 [id number] Univers 18:46:34 19:35:00 Ahmed, [facility] 350.1.13.10 ity of [place], Radheshyam [place] 4.2.7.2.686 [facility] [id number] [facility] [address] ([facility]) 2020-01-24 2020-01-26 Outpatient X SIMIN [facility] [id number] Univers 18:46:34 19:35:00 RADHESHYAM ity of [facility] 2020-01-24 2020-01-26 Emergency Sabi Robledo [facility] 1.2.840.1 14 [id number] 18:46:34 19:35:00 [facility] 350.1.13.10 [place] 4.2.7.2.686 [place] [phone] Hospital 109 ([facility]) 2020-01-05 2020-01-05 Outpatient JOE Perea [facility] [id number] [facility] 23:52:00 23:52:00 [facility] 2019-[facility]-28 2019-12-28 Orders Doctor BERNARDO 1.2.840.114 [id number] 00:00:00 00:00:00 Only Unassigned, [place] 350.1.13.10 [place] [facility] 4.2.7.2.686 [id number] 009 2019-12-28 2019-12-28 Orders Doctor BERNARDO 1.2.840.114 [id number] [facility] 00:00:00 00:00:00 Only Unassigned, [place] 350.1.13.10 ity of [place] [facility] 4.2.7.2.686 Javi as [phone] [facility] [address] 2019-12-12 2019-12-12 Emergency [place], [place] 1.2.465.999 [id number] 21:02:30 23:20:00 [facility] 350.1.13.10 4.2.7.2.686 [id number] 014 2019-12-12 2019-12-12 Emergency [place], [place] 1.2.509.882 [id number] [facility] 21:02:30 23:20:00 [facility] 350.1.13.10 i ty of [place] [id number] [facility] 014 [address] 2017-11-02 2017-11-02 Emergency E [facility] MED [id number] [address] 08:33:00 08:33:00 [facility] 2017-08-05 2017-08-[address] [facility] [id number] 36 [place] 00:00:00 00:00:00 [facility] 2017-07-28 2017-07-[address] [facility] [id number] 94 [place] 00:00:00 00:00:00 [facility] 2017-06-24 2017-06-[address] [facility] [id number] 36 [place] 00:00:00 00:00:00 Health 2017-06-22 2017-06-[address] [facility] [id number] [place] 21:37:29 21:37:29 Health 2017-06-22 2017-06-22 Emergency [facility] [id number] [place] 21:06:00 21:06:00 Health 2017-06-22 2017-06-[address] [facility] [id number] 95 [place] 10:02:31 10:02:31 Health 2017-06-09 2017-06-[address] [facility] [id number] 02 [place] 00:00:00 00:00:00 Health 2017-06-09 2017-06-[address] [facility] [id number] 18 [place] 00:00:00 00:00:00 [facility] 2017-05-08 2017-05-08 Emergency [facility] [id number] 1 [place] 01:04:44 01:04:44 [facility] 2017-05-05 2017-05-05 Emergency E [facility] MED [id number] [address] 08:11:00 08:11:00 [facility] 2017-04-15 2017-04-15 Emergency E [facility] MED [id number] [address] 09:53:00 09:53:00 [facility] 2017-04-14 2017-04-[address] [facility] [id number] 61 [place] 13:31:02 13:31:02 Health Results Test Description Test Time Test Comments Results Result Comments Source Lactic Acid Whole Blood 2023-03-20 20:47:35 Test Item Value Reference Range Interpretation Comme nts LACTIC ACID (test code = 3516977754) 1.00 mmol/L 0.50-2.20 Lab Interpretation (test code = 95374-3) Normal [facility] [id number] 04:07:33 Test Item Value Reference Range Interpretation Comments HGB A1C (test code = 5.1 % 4.0-5.7 4548-4) GILBERTO (test code = GILBERTO) Reference RangesNormal: <5.7%Prediabetes: 5.7 - 6.4%Diabetes: > 6.5% Lab Interpretation (test Normal code = 73627-1) [facility] (NA, K, CL, CO2, GLUCOSE, BUN, CREATININE, CA)2023-01-27 23:24:10 Test Item Value Reference Range Interpretation Comments NA (test code = 135 mmol/L 135-145 6057060891) K (test code = 3.4 mmol/L 3.5-5.0 L 4487857498) CL (test code = 105 mmol/L 98-108 1543683976) CO2 TOTAL (test code = 19 mmol/L 23-31 L 6295063053) AGAP (test code = 11 2-16 2112930702) BUN (test code = 20 mg/dL 7-23 1718458496) GLUCOSE (test code = 84 mg/dL 70-110 6068790362) CREATININE (test code = 1.09 mg/dL 0.60-1.25 9388515995) CALCIUM (test code = 8.5 mg/dL 8.6-10.6 L 8135600603) eGFR (test code = 71.0 mL/min/1.73m2 0611271286) GILBERTO (test code = GILBERTO) Association of [...] tests). Lab Interpretation Abnormal (test code = 90585-9) [facility] PAN[facility] (68161) (ALB,T.PRO,BILI T,BU/BC,ALT,AST,ALK PHOS)2023-01-27 23:24:10 Test Item Value Reference Range Interpretation Comments TOTAL BILI (test code = 1792589057) 0.7 mg/dL 0.1-1.1 BILI UNCON (test code = 1609076197) 0.5 mg/dL 0.1-1.1 BILI CONJ (test code = 5174870588) 0.0 mg/dL 0.0-0.3 T PROTEIN (test code = 5726139700) 6.0 g/dL 6.3-8.2 L ALBUMIN (test code = 6347969782) 3.5 g/dL 3.5-5.0 ALK PHOS (test code = 5441757246) 64 U/L 34-122 ALTv (test code = 1742-6) 17 U/L 5-50 AST(SGOT) (test code = 1240990639) 37 U/L 13-40 Lab Interpretation (test code = Abnormal 59376-8) [facility] CenterPhosphorus [id number] 23:24:10 Test Item Value Reference Range Interpretation Comments PHOSPHORUS (test code = 8531599002) 3.4 mg/dL 2.5-5.0 Lab Interpretation (test code = Normal 98765-5) [facility] CenterCBC WITH [id number] 22:54:46 Test Item Value Reference Range Interpretation Comments WBC (test code = 5.12 See_Comment [Automated 6236-2) message] The sy stem which generated this result transmitted reference range : 4.20 - 10.70 10*3/?L. The reference range was not used to interpret this result as normal/abnormal . RBC (test code = 3.88 See_Comment L [Automated 166-8) message] The sy stem which generated this [...] RDW-SD (test code = 49.4 fL 38.5-51.6 90192-4) RDW-CV (test code = 15.5 % 12.1-15.4 H 788-0) PLT (test code = 226 See_Comment [Automated 777-3) message] The sy stem which generated this result transmitted reference range : 150 - 328 10*3/ ?L. The reference r meredith was not used to interpret this result as normal/abnormal . MPV (test code = 9.8 fL 9.8-13.0 11165-5) NRBC/100 WBC (test 0.0 See_Comment [Automat ed code = 2215833952) message] The system which generated this result transmitted reference range : 0.0 - 10.0 /100 WBCs. The refer ence range was not u sed to interpret th is result as normal/abnormal . NRBC x10^3 (test code See_Comment [Auto mated = 9654521019) message] The s ystem which generated this result transmitted reference range : 10*3/?L. The reference range was not used to interpret this result as normal/abnormal . GRAN MAT (NEUT) % 55.3 % (test code = 770-8) IMM GRAN % (test code 0.60 % = 1283271711) LYMPH % (test code = 31.6 % 736-9) MONO % (test code = 9.8 % 5905-5) EOS % (test code = 2.1 % 713-8) BASO % (test code = 0.6 % 706-2) GRAN MAT x10^3(ANC) 2.83 10*3/uL 1.99-6.95 (test code = 7683743076) IMM GRAN x10^3 (test 0.03 10*3/uL 0.00-0.06 code = 6477110430) LYMPH x10^3 (test code 1.62 10*3/uL 1.09-3.23 = 731-0) MONO x10^3 (test code 0.50 10*3/uL 0.36-1.02 = 742-7) EOS x10^3 (test code = 0.11 10*3/uL 0.06-0.53 711-2) BASO x10^3 (test code 0.03 10*3/uL 0.01-0.09 = 704-7) Lab Interpretation Abnormal (test code = 55808-5) [facility]- [facility] ABD PELVIS [id number] 11:13:00 [facility] HO[facility] : 1970 Sex: M Name: HOANG MCNEILL FSED : 1970 Age/S: 52 / M [address] [facility] Unit #: [id number] Loc: [place] [address] Phys: Dyana Cameron MD Acct: [id number] Dis Date: Status: REG ER PHONE #:Exam Date: 01/27/2023 1050 FAX #: Reason: LOWER ABD PAIN, OSTOMY REVERSAL 5 MOS AGO EXAMS: CPT CODE:[id number] CT ABD PELVIS W/CONT 91936 B2 TIME OF STUDY: 01/27/2023 9:16 AM [...] : 1970 Age/S: 52 / M [address] [facility] Unit #: [id number] Loc: [place] [address] Phys: Dyana Cameron MD Acct: [id number] Dis Date: Status: REG ER PHONE #: Exam Date: 01/27/2023 1050 FAX #: Reason: LOWER ABD PAIN, OSTOMY REVERSAL 5 MOS AGO EXAMS: CPT CODE: [id number] CT ABD PELVIS W/CONT 70288 (Continued) 3. Circumferential thickening of the bladder. This could be due to partial decompression versus cystitis. Correlate with symptoms and urinalysis. at 1113 Reported and signed by: Tomi Anderson M.D.CC: Dyana Cameron MD Technologist:Renzo Cassidy, RT(R)(CT) CTDI: DLP: Trnscb Date/Time: 01/27/2023 (1113) [email or web address] Orig Print D/T: S: 01/27/2023 (2124) PAGE 2 Signed ReportLIVER [id number] 10:31:00 Test Item Value Reference Range Interpretation Comments TOTAL PROTEIN (test code 6.1 GM/DL 5.0-8.0 N Per formed by = PROT) 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 [facility] ALBUMIN (test code = 3.6 [...] N Testing performed (test code = EDWBC) at:[facility] [id number] [place], [place] [address] POC RED BLOOD CELL 3.90 10 6/uL [...] VOLUME (test code = EDMPV) BASIC METABOLIC [id number] 10:10:00 Test Item Value Reference Range Interpretation [...] NA (test code = 137 mmol/L 135-145 3410493762) K (test code = 4.4 mmol/L 3.5-5.0 7266979260) CL (test code = 114 mmol/L 98-108 H 2960299608) CO2 TOTAL (test code = 22 mmol/L 23-31 L 2108632732) AGAP (test code = 1 2-16 L 4260280272) BUN (test code = 12 mg/dL 7-23 7436351164) GLUCOSE (test code = 78 mg/dL 70-110 9133628260) CREATININE (test code = 1.14 mg/dL 0.60-1.25 2892538743) CALCIUM (test code = 7.7 mg/dL 8.6-10.6 L 1326903305) eGFR (test code = 67.5 mL/min/1.73m2 5170836225) GILBERTO (test code = GILBERTO) Association of [...] tests). Lab Interpretation Abnormal (test code = 44876-3) [facility]51 Test Item Value Reference Range Interpretation Comments MAGNESIUM (test code = 5843666502) 1.6 mg/dL 1.7-2.4 L Lab Interpretation (test code = Abnormal 40018-2) [facility] (NA, K, CL, CO2, GLUCOSE, BUN, CREATININE, CA)2022-12-04 11:06:51 Test Item Value Reference Range Interpretation Comments NA (test code = 137 mmol/L 135-145 8489593281) K (test code = 4.4 mmol/L 3.5-5.0 1516574709) CL (test code = 114 mmol/L 98-108 H 3894856613) CO2 TOTAL (test code = 22 mmol/L 23-31 L 6083698912) AGAP (test code = 1 2-16 L 6508079873) BUN (test code = 12 mg/dL 7-23 6787863466) GLUCOSE (test code = 78 mg/dL 70-110 7277775628) CREATININE (test code = 1.14 mg/dL 0.60-1.25 4928709245) CALCIUM (test code = 7.7 mg/dL 8.6-10.6 L 1872032365) eGFR (test code = 67.5 mL/min/1.73m2 6695830900) GILBERTO (test code = GILBERTO) Association of [...] tests). Lab Interpretation Abnormal (test code = 51562-9) [facility] 11:06:51 Test Item Value Reference Range Interpretation Comments MAGNESIUM (test code = 0353023529) 1.6 mg/dL 1.7-2.4 L Lab Interpretation (test code = Abnormal 91267-9) [facility] [id number] 10:41:28 Test Item Value Reference Range Interpretation Comments APTT Patient (test code = 28 See_Comment [ Automated message] 3173-2) The system [employer] generated this result transmitted ref erence range: 26 - 36 Seconds. The re ference range was not u sed to interpret this result as normal/abnor mal. Lab Interpretation (test Normal code = 37051-2) [facility] PARTIAL THRMPLAS [id number] 10:41:28 Test Item Value Reference Range Interpretation Comments APTT Patient (test code = 28 See_Comment [ Automated message] 3173-2) The system [employer] generated this result transmitted ref erence range: 26 - 36 Seconds. The re ference range was not u sed to interpret this result as normal/abnor mal. Lab Interpretation (test Normal code = 47352-2) [facility] Center[facility] / [id number] 10:41:27 Test Item Value Reference Range Interpretation Comments PROTIME PATIENT (test 10.6 See_Comment [Auto mated message] code = 5964-2) The system [employer] generated this result transmitted ref erence range: 10.1 - 1 2.6 Seconds. The re ference range was not u sed to interpret this result as normal/abnor mal. INR (test code = 6301-6) 1.0 Nor mal INR <1.1; Warfarin Therap eutic range 2.0 to 3. 0 or 2.5 to 3.5, dep ending upon the indica tions. Lab Interpretation (test Normal code = 66829-3) [facility] / [id number] 10:41:27 Test Item Value Reference Range Interpretation Comments PROTIME PATIENT (test 10.6 See_Comment [Auto mated message] code = 5964-2) The system [employer] generated this result transmitted ref erence range: 10.1 - 1 2.6 Seconds. The re ference range was not u sed to interpret this result as normal/abnor mal. INR (test code = 6301-6) 1.0 Nor mal INR <1.1; Warfarin Therap eutic range 2.0 to 3. 0 or 2.5 to 3.5, dep ending upon the indica tions. Lab Interpretation (test Normal code = 96739-1) [facility] WITH [id number] 10:35:48 Test Item Value Reference Range Interpretation Comments WBC (test code = 4.40 See_Comment [Automated 9990-2) message] The sy stem [...] RDW-SD (test code = 50.4 fL 38.5-51.6 48989-4) RDW-CV (test code = 15.2 % 12.1-15.4 788-0) PLT (test code = 190 See_Comment [Automated 777-3) message] The sy stem which generated this result transmitted reference range : 150 - 328 10*3/ ?L. The reference r meredith was not used to interpret this result as normal/abnormal . MPV (test code = 9.5 fL 9.8-13.0 L 15707-2) NRBC/100 WBC (test 0.0 See_Comment [Automat ed code = 9388878330) message] The system which generated this result transmitted reference range : 0.0 - 10.0 /100 WBCs. The refer ence range was not u sed to interpret th is result as normal/abnormal . NRBC x10^3 (test code See_Comment [Auto mated = 0929171433) message] The s ystem which generated this result transmitted reference range : 10*3/?L. The reference range was not used to interpret this result as normal/abnormal . GRAN MAT (NEUT) % 52.1 % (test code = 770-8) IMM GRAN % (test code 0.20 % = 9941677261) LYMPH % (test code = 30.0 % 736-9) MONO % (test code = 13.6 % 5905-5) EOS % (test code = 3.4 % 713-8) BASO % (test code = 0.7 % 706-2) GRAN MAT x10^3(ANC) 2.29 10*3/uL 1.99-6.95 (test code = 6114614861) IMM GRAN x10^3 (test 0.00-0.06 code = 7006933703) LYMPH x10^3 (test code 1.32 10*3/uL 1.09-3.23 = 731-0) MONO x10^3 (test code 0.60 10*3/uL 0.36-1.02 = 742-7) EOS x10^3 (test code = 0.15 10*3/uL 0.06-0.53 711-2) BASO x10^3 (test code 0.03 10*3/uL 0.01-0.09 = 704-7) Lab Interpretation Abnormal (test code = 08013-5) [facility] WITH [id number] 10:35:48 Test Item Value Reference Range Interpretation Comments WBC (test code = 4.40 See_Comment [Automated 3190-2) message] The sy stem which generated this result transmitted reference range : 4.20 - 10.70 10*3/?L. The reference range was not used to interpret this result as normal/abnormal . RBC (test code = 2.84 See_Comment L [Automated 369-8) message] The sy [...] RDW-SD (test code = 50.4 fL 38.5-51.6 42197-4) RDW-CV (test code = 15.2 % 12.1-15.4 788-0) PLT (test code = 190 See_Comment [Automated 777-3) message] The sy stem which generated this result transmitted reference range : 150 - 328 10*3/ ?L. The reference r meredith was not used to interpret this result as normal/abnormal . MPV (test code = 9.5 fL 9.8-13.0 L 55308-7) NRBC/100 WBC (test 0.0 See_Comment [Automat ed code = 8155195893) message] The system which generated this result transmitted reference range : 0.0 - 10.0 /100 WBCs. The refer ence range was not u sed to interpret th is result as normal/abnormal . NRBC x10^3 (test code See_Comment [Auto mated = 5646315831) message] The s ystem which generated this result transmitted reference range : 10*3/?L. The reference range was not used to interpret this result as normal/abnormal . GRAN MAT (NEUT) % 52.1 % (test code = 770-8) IMM GRAN % (test code 0.20 % = 2367525767) LYMPH % (test code = 30.0 % 736-9) MONO % (test code = 13.6 % 5905-5) EOS % (test code = 3.4 % 713-8) BASO % (test code = 0.7 % 706-2) GRAN MAT x10^3(ANC) 2.29 10*3/uL 1.99-6.95 (test code = 2446929176) IMM GRAN x10^3 (test 0.00-0.06 code = 3876293943) LYMPH x10^3 (test code 1.32 10*3/uL 1.09-3.23 = 731-0) MONO x10^3 (test code 0.60 10*3/uL 0.36-1.02 = 742-7) EOS x10^3 (test code = 0.15 10*3/uL 0.06-0.53 711-2) BASO x10^3 (test code 0.03 10*3/uL 0.01-0.09 = 704-7) Lab Interpretation Abnormal (test code = 65583-1) [facility] Test Item Value Reference Range Interpretation Comments MAGNESIUM (test code = 7531301135) 1.8 mg/dL 1.7-2.4 Lab Interpretation (test code = Normal 83801-2) [facility] 11[facility]40:33 Test Item Value Reference Range Interpretation Comments MAGNESIUM (test code = 8630381465) 1.8 mg/dL 1.7-2.4 Lab Interpretation (test code = Normal 80076-4) [facility] (NA, K, CL, CO2, GLUCOSE, BUN, CREATININE, CA)2022-12-03 11:40:32 Test Item Value Reference Range Interpretation Comments NA (test code = 134 mmol/L 135-145 L 1880847559) K (test code = 4.1 mmol/L 3.5-5.0 3158510432) CL (test code = 111 mmol/L 98-108 H 2721054986) CO2 TOTAL (test code = 21 mmol/L 23-31 L 0507221371) AGAP (test code = 2 2-16 8818185304) BUN (test code = 13 mg/dL 7-23 8795536977) GLUCOSE (test code = 88 mg/dL 70-110 5149658913) CREATININE (test code = 1.24 mg/dL 0.60-1.25 5231097414) CALCIUM (test code = 7.4 mg/dL 8.6-10.6 L 0278547372) eGFR (test code = 61.2 mL/min/1.73m2 0474901756) GILBERTO (test code = GILBERTO) Association of [...] tests). Lab Interpretation Abnormal (test code = 92622-5) [facility] METABOLIC PANEL (NA, K, CL, CO2, GLUCOSE, BUN, CREATININE, CA)2022-12-03 11:40:32 Test Item Value Reference Range Interpretation Comments NA (test code = 134 mmol/L 135-145 L 3837092794) K (test code = 4.1 mmol/L 3.5-5.0 8753673204) CL (test code = 111 mmol/L 98-108 H 7467602012) CO2 TOTAL (test code = 21 mmol/L 23-31 L 6310155376) AGAP (test code = 2 2-16 0431120846) BUN (test code = 13 mg/dL 7-23 6445904118) GLUCOSE (test code = 88 mg/dL 70-110 9890324745) CREATININE (test code = 1.24 mg/dL 0.60-1.25 2879374624) CALCIUM (test code = 7.4 mg/dL 8.6-10.6 L 0846646019) eGFR (test code = 61.2 mL/min/1.73m2 6207600754) GILBERTO (test code = GILBERTO) Association of [...] tests). Lab Interpretation Abnormal (test code = 76250-6) [facility] WITH [id number] 11:16:11 Test Item Value Reference Range Interpretation Comments WBC (test code = 4.57 See_Comment [Automated 1990-2) message] The sy stem [...] RDW-SD (test code = 49.3 fL 38.5-51.6 26619-0) RDW-CV (test code = 14.9 % 12.1-15.4 788-0) PLT (test code = 214 See_Comment [Automated 777-3) message] The sy stem which generated this result transmitted reference range : 150 - 328 10*3/ ?L. The reference r meredith was not used to interpret this result as normal/abnormal . MPV (test code = 9.4 fL 9.8-13.0 L 50103-5) NRBC/100 WBC (test 0.0 See_Comment [Automat ed code = 5140791029) message] The system which generated this result transmitted reference range : 0.0 - 10.0 /100 WBCs. The refer ence range was not u sed to interpret th is result as normal/abnormal . NRBC x10^3 (test code See_Comment [Auto mated = 4051825893) message] The s ystem which generated this result transmitted reference range : 10*3/?L. The reference range was not used to interpret this result as normal/abnormal . GRAN MAT (NEUT) % 59.7 % (test code = 770-8) IMM GRAN % (test code 0.20 % = 6512522821) LYMPH % (test code = 25.8 % 736-9) MONO % (test code = 11.2 % 5905-5) EOS % (test code = 2.4 % 713-8) BASO % (test code = 0.7 % 706-2) GRAN MAT x10^3(ANC) 2.73 10*3/uL 1.99-6.95 (test code = 6276341292) IMM GRAN x10^3 (test 0.00-0.06 code = 3537839983) LYMPH x10^3 (test code 1.18 10*3/uL 1.09-3.23 = 731-0) MONO x10^3 (test code 0.51 10*3/uL 0.36-1.02 = 742-7) EOS x10^3 (test code = 0.11 10*3/uL 0.06-0.53 711-2) BASO x10^3 (test code 0.03 10*3/uL 0.01-0.09 = 704-7) Lab Interpretation Abnormal (test code = 89209-2) [facility] WITH [id number] 11:16:11 Test Item Value Reference Range Interpretation Comments WBC (test code = 4.57 See_Comment [Automated 6690-2) message] The sy stem which generated this result transmitted reference range : 4.20 - 10.70 10*3/?L. The reference range was not used to interpret this result as normal/abnormal . RBC (test code = 2.73 See_Comment L [Automated 069-8) message] The sy [...] RDW-SD (test code = 49.3 fL 38.5-51.6 83386-9) RDW-CV (test code = 14.9 % 12.1-15.4 788-0) PLT (test code = 214 See_Comment [Automated 777-3) message] The sy stem which generated this result transmitted reference range : 150 - 328 10*3/ ?L. The reference r meredith was not used to interpret this result as normal/abnormal . MPV (test code = 9.4 fL 9.8-13.0 L 80861-9) NRBC/100 WBC (test 0.0 See_Comment [Automat ed code = 4342675040) message] The system which generated this result transmitted reference range : 0.0 - 10.0 /100 WBCs. The refer ence range was not u sed to interpret th is result as normal/abnormal . NRBC x10^3 (test code See_Comment [Auto mated = 3534688358) message] The s ystem which generated this result transmitted reference range : 10*3/?L. The reference range was not used to interpret this result as normal/abnormal . GRAN MAT (NEUT) % 59.7 % (test code = 770-8) IMM GRAN % (test code 0.20 % = 1181618051) LYMPH % (test code = 25.8 % 736-9) MONO % (test code = 11.2 % 5905-5) EOS % (test code = 2.4 % 713-8) BASO % (test code = 0.7 % 706-2) GRAN MAT x10^3(ANC) 2.73 10*3/uL 1.99-6.95 (test code = 5530093741) IMM GRAN x10^3 (test 0.00-0.06 code = 6508495083) LYMPH x10^3 (test code 1.18 10*3/uL 1.09-3.23 = 731-0) MONO x10^3 (test code 0.51 10*3/uL 0.36-1.02 = 742-7) EOS x10^3 (test code = 0.11 10*3/uL 0.06-0.53 711-2) BASO x10^3 (test code 0.03 10*3/uL 0.01-0.09 = 704-7) Lab Interpretation Abnormal (test code = 90769-4) [facility] [id number] 15:01:14 Test Item Value Reference Range Interpretation Comments Blood Culture-Aerobic No organisms No growth Previo us (test code = 27965-3) isolated prelim inary verified result was Culture [...] Culture-Anaerobic isolated preliminar y (test code = 99661-7) verifi ed result was Culture In Progress [...] CDT Lab Interpretation Normal (test code = 58330-7) [facility] [id number] 15:01:14 Test Item Value Reference Range Interpretation Comments Blood Culture-Aerobic No organisms No growth Previo us (test code = 17212-1) isolated prelim inary verified result was Culture [...] Culture-Anaerobic isolated preliminar y (test code = 64515-9) verifi ed result was Culture In Progress [...] CDT Lab Interpretation Normal (test code = 28911-5) [facility] CULTURE [id number] 15:01:14 Test Item Value Reference Range Interpretation Comments Blood Culture-Aerobic No organisms No growth Previo us (test code = 45309-5) isolated prelim inary verified result was Culture [...] Culture-Anaerobic isolated preliminar y (test code = 64659-0) verifi ed result was Culture In Progress [...] CDT Lab Interpretation Normal (test code = 54184-0) [facility] CULTURE [id number] 15:01:14 Test Item Value Reference Range Interpretation Comments Blood Culture-Aerobic No organisms No growth Previo us (test code = 13831-9) isolated prelim inary verified result was Culture [...] Culture-Anaerobic isolated preliminar y (test code = 91067-2) verifi ed result was Culture In Progress [...] CDT Lab Interpretation Normal (test code = 25433-1) [facility] 14:32:40 Test Item Value Reference Range Interpretation Comments PHOSPHORUS (test code = 3190145692) 3.1 mg/dL 2.5-5.0 Lab Interpretation (test code = Normal 47878-3) [facility] 14:32:40 Test Item Value Reference Range Interpretation Comments PHOSPHORUS (test code = 4777030188) 3.1 mg/dL 2.5-5.0 Lab Interpretation (test code = Normal 09871-5) [facility] METABOLIC PANEL (NA, K, CL, CO2, GLUCOSE, BUN, CREATININE, CA)2022-12-02 10:14:23 Test Item Value Reference Range Interpretation Comments NA (test code = 133 mmol/L 135-145 L 8132768810) K (test code = 4.2 mmol/L 3.5-5.0 7018604407) CL (test code = 110 mmol/L 98-108 H 3210066179) CO2 TOTAL (test code = 20 mmol/L 23-31 L 2296312130) AGAP (test code = 3 2-16 3787694977) BUN (test code = 11 mg/dL 7-23 7966216432) GLUCOSE (test code = 97 mg/dL 70-110 0164805167) CREATININE (test code = 1.13 mg/dL 0.60-1.25 0290643115) CALCIUM (test code = 7.6 mg/dL 8.6-10.6 L 7554749201) eGFR (test code = 68.1 mL/min/1.73m2 5774413738) GILBERTO (test code = GILBERTO) Association of [...] tests). Lab Interpretation Abnormal (test code = 49181-0) [facility] 10:14:23 Test Item Value Reference Range Interpretation Comments MAGNESIUM (test code = 9528876023) 1.5 mg/dL 1.7-2.4 L Lab Interpretation (test code = Abnormal 31302-1) [facility] (NA, K, CL, CO2, GLUCOSE, BUN, CREATININE, CA)2022-12-02 10:14:23 Test Item Value Reference Range Interpretation Comments NA (test code = 133 mmol/L 135-145 L 3318726279) K (test code = 4.2 mmol/L 3.5-5.0 8607562065) CL (test code = 110 mmol/L 98-108 H 9696836753) CO2 TOTAL (test code = 20 mmol/L 23-31 L 4531698494) AGAP (test code = 3 2-16 0024057596) BUN (test code = 11 mg/dL 7-23 6476995742) GLUCOSE (test code = 97 mg/dL 70-110 0900148979) CREATININE (test code = 1.13 mg/dL 0.60-1.25 3028483178) CALCIUM (test code = 7.6 mg/dL 8.6-10.6 L 1415875121) eGFR (test code = 68.1 mL/min/1.73m2 6695213441) GILBERTO (test code = GILBERTO) Association of [...] tests). Lab Interpretation Abnormal (test code = 40674-4) [facility] 10:14:23 Test Item Value Reference Range Interpretation Comments MAGNESIUM (test code = 2034115753) 1.5 mg/dL 1.7-2.4 L Lab Interpretation (test code = Abnormal 93521-9) [facility] (NA, K, CL, CO2, GLUCOSE, BUN, CREATININE, CA)2022-12-01 10:30:03 Test Item Value Reference Range Interpretation Comments NA (test code = 135 mmol/L 135-145 9792915879) K (test code = 4.3 mmol/L 3.5-5.0 8504901122) CL (test code = 111 mmol/L 98-108 H 0167915335) CO2 TOTAL (test code = 20 mmol/L 23-31 L 5446405708) AGAP (test code = 4 2-16 4370035778) BUN (test code = 13 mg/dL 7-23 0050604406) GLUCOSE (test code = 81 mg/dL 70-110 9808657657) CREATININE (test code = 0.97 mg/dL 0.60-1.25 5850565496) CALCIUM (test code = 7.5 mg/dL 8.6-10.6 L 7990590071) eGFR (test code = 81.3 mL/min/1.73m2 5988957863) GILBERTO (test code = GILBERTO) Association of [...] tests). Lab Interpretation Abnormal (test code = 59286-8) [facility] Test Item Value Reference Range Interpretation Comments MAGNESIUM (test code = 4254954390) 1.9 mg/dL 1.7-2.4 Lab Interpretation (test code = Normal 06505-9) [facility] METABOLIC PANEL (NA, K, CL, CO2, GLUCOSE, BUN, CREATININE, CA)2022-12-01 10:30:03 Test Item Value Reference Range Interpretation Comments NA (test code = 135 mmol/L 135-145 0765310361) K (test code = 4.3 mmol/L 3.5-5.0 8130668040) CL (test code = 111 mmol/L 98-108 H 5019562878) CO2 TOTAL (test code = 20 mmol/L 23-31 L 7566202042) AGAP (test code = 4 2-16 8937141257) BUN (test code = 13 mg/dL 7-23 8004313583) GLUCOSE (test code = 81 mg/dL 70-110 4303265268) CREATININE (test code = 0.97 mg/dL 0.60-1.25 6101421962) CALCIUM (test code = 7.5 mg/dL 8.6-10.6 L 3338539170) eGFR (test code = 81.3 mL/min/1.73m2 5152059783) GILBERTO (test code = GILBERTO) Association of [...] tests). Lab Interpretation Abnormal (test code = 89727-4) [facility] 10:30:03 Test Item Value Reference Range Interpretation Comments MAGNESIUM (test code = 8903674318) 1.9 mg/dL 1.7-2.4 Lab Interpretation (test code = Normal 07825-2) [facility] WITH [id number] 10:27:26 Test Item Value Reference Range Interpretation Comments WBC (test code = 4.61 See_Comment [Automated 6690-2) message] The sy stem which generated this result transmitted reference range : 4.20 - 10.70 10*3/?L. The reference range was not used to interpret this result as normal/abnormal . RBC (test code = 3.05 See_Comment L [Automated 829-8) message] The sy [...] RDW-SD (test code = 47.7 fL 38.5-51.6 18909-4) RDW-CV (test code = 14.5 % 12.1-15.4 788-0) PLT (test code = 274 See_Comment [Automated 147-3) message] The sy stem which generated this result transmitted reference range : 150 - 328 10*3/ ?L. The reference r meredith was not used to interpret this result as normal/abnormal . MPV (test code = 9.0 fL 9.8-13.0 L 63427-8) NRBC/100 WBC (test 0.0 See_Comment [Automat ed code = 5667910835) message] The system which generated this result transmitted reference range : 0.0 - 10.0 /100 WBCs. The refer ence range was not u sed to interpret th is result as normal/abnormal . NRBC x10^3 (test code See_Comment [Auto mated = 1154553287) message] The s ystem which generated this result transmitted reference range : 10*3/?L. The reference range was not used to interpret this result as normal/abnormal . GRAN MAT (NEUT) % 53.2 % (test code = 770-8) IMM GRAN % (test code 0.00 % = 9185418585) LYMPH % (test code = 34.7 % 736-9) MONO % (test code = 9.3 % 5905-5) EOS % (test code = 2.4 % 713-8) BASO % (test code = 0.4 % 706-2) GRAN MAT x10^3(ANC) 2.45 10*3/uL 1.99-6.95 (test code = 5589070388) IMM GRAN x10^3 (test 0.00-0.06 code = 0173852272) LYMPH x10^3 (test code 1.60 10*3/uL 1.09-3.23 = 731-0) MONO x10^3 (test code 0.43 10*3/uL 0.36-1.02 = 742-7) EOS x10^3 (test code = 0.11 10*3/uL 0.06-0.53 711-2) BASO x10^3 (test code 0.01-0.09 = 704-7) Lab Interpretation Abnormal (test code = 35334-1) [facility] WITH [id number] 10:27:26 Test Item Value Reference Range Interpretation [...] RDW-SD (test code = 47.7 fL 38.5-51.6 14592-0) RDW-CV (test code = 14.5 % 12.1-15.4 788-0) PLT (test code = 274 See_Comment [Automated 777-3) message] The sy stem which generated this result transmitted reference range : 150 - 328 10*3/ ?L. The reference r meredith was not used to interpret this result as normal/abnormal . MPV (test code = 9.0 fL 9.8-13.0 L 94046-6) NRBC/100 WBC (test 0.0 See_Comment [Automat ed code = 2868925557) message] The system which generated this result transmitted reference range : 0.0 - 10.0 /100 WBCs. The refer ence range was not u sed to interpret th is result as normal/abnormal . NRBC x10^3 (test code See_Comment [Auto mated = 7972529743) message] The s ystem which generated this result transmitted reference range : 10*3/?L. The reference range was not used to interpret this result as normal/abnormal . GRAN MAT (NEUT) % 53.2 % (test code = 770-8) IMM GRAN % (test code 0.00 % = 0936049575) LYMPH % (test code = 34.7 % 736-9) MONO % (test code = 9.3 % 5905-5) EOS % (test code = 2.4 % 713-8) BASO % (test code = 0.4 % 706-2) GRAN MAT x10^3(ANC) 2.45 10*3/uL 1.99-6.95 (test code = 9197500959) IMM GRAN x10^3 (test 0.00-0.06 code = 4720627471) LYMPH x10^3 (test code 1.60 10*3/uL 1.09-3.23 = 731-0) MONO x10^3 (test code 0.43 10*3/uL 0.36-1.02 = 742-7) EOS x10^3 (test code = 0.11 10*3/uL 0.06-0.53 711-2) BASO x10^3 (test code 0.01-0.09 = 704-7) Lab Interpretation Abnormal (test code = 21329-3) [facility] METABOLIC PANEL (NA, K, CL, CO2, GLUCOSE, BUN, CREATININE, CA)2022-11-30 11:04:34 Test Item Value Reference Range Interpretation Comments NA (test code = 132 mmol/L 135-145 L 8658986161) K (test code = 4.7 mmol/L 3.5-5.0 9815543400) CL (test code = 108 mmol/L 98-108 2900839527) CO2 TOTAL (test code = 18 mmol/L 23-31 L 3622405927) AGAP (test code = 6 2-16 7419296385) BUN (test code = 15 mg/dL 7-23 9455938002) GLUCOSE (test code = 75 mg/dL 70-110 0950309787) CREATININE (test code = 1.03 mg/dL 0.60-1.25 7710903321) CALCIUM (test code = 8.2 mg/dL 8.6-10.6 L 2618534969) eGFR (test code = 75.8 mL/min/1.73m2 0075537158) GILBERTO (test code = GILBERTO) Association of [...] tests). Lab Interpretation Abnormal (test code = 21181-6) [facility] 11:04:34 Test Item Value Reference Range Interpretation Comments MAGNESIUM (test code = 1096911588) 1.6 mg/dL 1.7-2.4 L Lab Interpretation (test code = Abnormal 54334-8) [facility] (NA, K, CL, CO2, GLUCOSE, BUN, CREATININE, CA)2022-11-30 11:04:34 Test Item Value Reference Range Interpretation Comments NA (test code = 132 mmol/L 135-145 L 6233263915) K (test code = 4.7 mmol/L 3.5-5.0 6050129593) CL (test code = 108 mmol/L 98-108 7362620559) CO2 TOTAL (test code = 18 mmol/L 23-31 L 4682600108) AGAP (test code = 6 2-16 3793526665) BUN (test code = 15 mg/dL 7-23 5783527328) GLUCOSE (test code = 75 mg/dL 70-110 3177384486) CREATININE (test code = 1.03 mg/dL 0.60-1.25 0911545930) CALCIUM (test code = 8.2 mg/dL 8.6-10.6 L 0006520471) eGFR (test code = 75.8 mL/min/1.73m2 3779988976) GILBERTO (test code = GILBERTO) Association of [...] tests). Lab Interpretation Abnormal (test code = 58761-3) [facility] 11:04:34 Test Item Value Reference Range Interpretation Comments MAGNESIUM (test code = 6023388399) 1.6 mg/dL 1.7-2.4 L Lab Interpretation (test code = Abnormal 30388-4) [facility] WITH [id number] 10:09:29 Test Item Value Reference Range Interpretation [...] RDW-SD (test code = 45.1 fL 38.5-51.6 22707-2) RDW-CV (test code = 14.1 % 12.1-15.4 788-0) PLT (test code = 282 See_Comment [Automated 777-3) message] The sy stem which generated this result transmitted reference range : 150 - 328 10*3/ ?L. The reference r meredith was not used to interpret this result as normal/abnormal . MPV (test code = 9.0 fL 9.8-13.0 L 91102-4) NRBC/100 WBC (test 0.0 See_Comment [Automat ed code = [id number]) message] The system which generated this result transmitted reference range : 0.0 - 10.0 /100 WBCs. The refer ence range was not u sed to interpret th is result as normal/abnormal . NRBC x10^3 (test code See_Comment [Auto mated = [id number]) message] The s ystem which generated this result transmitted reference range : 10*3/?L. The reference range was not used to interpret this result as normal/abnormal . GRAN MAT (NEUT) % 51.6 % (test code = 770-8) IMM GRAN % (test code 0.20 % = [id number]) LYMPH % (test code = 34.8 % 736-9) MONO % (test code = 10.8 % 5905-5) EOS % (test code = 2.2 % 713-8) BASO % (test code = 0.4 % 706-2) GRAN MAT x10^3(ANC) 2.30 10*3/uL 1.99-6.95 (test code = 0659875956) IMM GRAN x10^3 (test 0.00-0.06 code = 1146188408) LYMPH x10^3 (test code 1.55 10*3/uL 1.09-3.23 = 731-0) MONO x10^3 (test code 0.48 10*3/uL 0.36-1.02 = 742-7) EOS x10^3 (test code = 0.10 10*3/uL 0.06-0.53 711-2) BASO x10^3 (test code 0.01-0.09 = 704-7) Lab Interpretation Abnormal (test code = 82070-4) [facility] WITH [id number] 10:09:29 Test Item Value Reference Range Interpretation Comments WBC (test code = 4.46 See_Comment [Automated 6690-2) message] The sy stem which generated this result transmitted reference range : 4.20 - 10.70 10*3/?L. The reference range was not used to interpret this result as normal/abnormal . RBC (test code = 3.22 See_Comment L [Automated 619-8) message] The sy [...] RDW-SD (test code = 45.1 fL 38.5-51.6 13325-1) RDW-CV (test code = 14.1 % 12.1-15.4 788-0) PLT (test code = 282 See_Comment [Automated 777-3) message] The sy stem which generated this result transmitted reference range : 150 - 328 10*3/ ?L. The reference r meredith was not used to interpret this result as normal/abnormal . MPV (test code = 9.0 fL 9.8-13.0 L 95437-0) NRBC/100 WBC (test 0.0 See_Comment [Automat ed code = 9835636586) message] The system which generated this result transmitted reference range : 0.0 - 10.0 /100 WBCs. The refer ence range was not u sed to interpret th is result as normal/abnormal . NRBC x10^3 (test code See_Comment [Auto mated = 5442212510) message] The s ystem which generated this result transmitted reference range : 10*3/?L. The reference range was not used to interpret this result as normal/abnormal . GRAN MAT (NEUT) % 51.6 % (test code = 770-8) IMM GRAN % (test code 0.20 % = 3295173674) LYMPH % (test code = 34.8 % 736-9) MONO % (test code = 10.8 % 5905-5) EOS % (test code = 2.2 % 713-8) BASO % (test code = 0.4 % 706-2) GRAN MAT x10^3(ANC) 2.30 10*3/uL 1.99-6.95 (test code = 8178591625) IMM GRAN x10^3 (test 0.00-0.06 code = 2163279496) LYMPH x10^3 (test code 1.55 10*3/uL 1.09-3.23 = 731-0) MONO x10^3 (test code 0.48 10*3/uL 0.36-1.02 = 742-7) EOS x10^3 (test code = 0.10 10*3/uL 0.06-0.53 711-2) BASO x10^3 (test code 0.01-0.09 = 704-7) Lab Interpretation Abnormal (test code = 45990-7) [facility] [id number] 13:52:51 Test Item Value Reference Range Interpretation Comments LACTIC ACID (test code = 1.53 mmol/L 0.50-2.20 4781161250) Lab Interpretation (test code = Normal 81420-6) [facility] [id number] 13:52:51 Test Item Value Reference Range Interpretation Comments LACTIC ACID (test code = 1.53 mmol/L 0.50-2.20 8735557734) Lab Interpretation (test code = Normal 23046-0) [facility] METABOLIC PANEL (NA, K, CL, CO2, GLUCOSE, BUN, CREATININE, CA)2022-11-29 09:16:40 Test Item Value Reference Range Interpretation Comments NA (test code = 130 mmol/L 135-145 L 1457711789) K (test code = 4.6 mmol/L 3.5-5.0 7699022898) CL (test code = 106 mmol/L 98-108 9786076595) CO2 TOTAL (test code = 20 mmol/L 23-31 L 1205906886) AGAP (test code = 4 2-16 7228096273) BUN (test code = 22 mg/dL 7-23 8253031915) GLUCOSE (test code = 79 mg/dL 70-110 6840544447) CREATININE (test code = 1.24 mg/dL 0.60-1.25 1841783546) CALCIUM (test code = 8.1 mg/dL 8.6-10.6 L 0887047092) eGFR (test code = 61.2 mL/min/1.73m2 2517428022) GILBERTO (test code = IGLBERTO) Association of Glomerular Filtration Rate (GFR) and [...] tests). Lab Interpretation Abnormal (test code = 80140-7) [facility] 09:16:40 Test Item Value Reference Range Interpretation Comments MAGNESIUM (test code = 8479715108) 2.0 mg/dL 1.7-2.4 Lab Interpretation (test code = Normal 21072-4) [facility] (NA, K, CL, CO2, GLUCOSE, BUN, CREATININE, CA)2022-11-29 09:16:40 Test Item Value Reference Range Interpretation Comments NA (test code = 130 mmol/L 135-145 L 2399800756) K (test code = 4.6 mmol/L 3.5-5.0 9674515152) CL (test code = 106 mmol/L 98-108 6694836037) CO2 TOTAL (test code = 20 mmol/L 23-31 L 0884091125) AGAP (test code = 4 2-16 7785839496) BUN (test code = 22 mg/dL 7-23 8189168896) GLUCOSE (test code = 79 mg/dL 70-110 2332441643) CREATININE (test code = 1.24 mg/dL 0.60-1.25 4724833646) CALCIUM (test code = 8.1 mg/dL 8.6-10.6 L 3612248321) eGFR (test code = 61.2 mL/min/1.73m2 0784558943) GILBERTO (test code = GILBERTO) Association of [...] tests). Lab Interpretation Abnormal (test code = 79166-0) [facility] 09:16:40 Test Item Value Reference Range Interpretation Comments MAGNESIUM (test code = 5937061596) 2.0 mg/dL 1.7-2.4 Lab Interpretation (test code = Normal 77940-1) [facility] WITH [id number] 08:51:40 Test Item Value Reference Range Interpretation Comments WBC (test code = 4.77 See_Comment [Automated 5890-2) message] The sy stem [...] RDW-SD (test code = 44.9 fL 38.5-51.6 79651-7) RDW-CV (test code = 14.3 % 12.1-15.4 788-0) PLT (test code = 287 See_Comment [Automated 777-3) message] The sy stem which generated this result transmitted reference range : 150 - 328 10*3/ ?L. The reference r meredith was not used to interpret this result as normal/abnormal . MPV (test code = 8.9 fL 9.8-13.0 L 62906-0) NRBC/100 WBC (test 0.0 See_Comment [Automat ed code = 8174088259) message] The system which generated this result transmitted reference range : 0.0 - 10.0 /100 WBCs. The refer ence range was not u sed to interpret th is result as normal/abnormal . NRBC x10^3 (test code See_Comment [Auto mated = 4545804422) message] The s ystem which generated this result transmitted reference range : 10*3/?L. The reference range was not used to interpret this result as normal/abnormal . GRAN MAT (NEUT) % 52.5 % (test code = 770-8) IMM GRAN % (test code 0.20 % = 2632253265) LYMPH % (test code = 35.2 % 736-9) MONO % (test code = 9.4 % 5905-5) EOS % (test code = 2.3 % 713-8) BASO % (test code = 0.4 % 706-2) GRAN MAT x10^3(ANC) 2.50 10*3/uL 1.99-6.95 (test code = 0936098290) IMM GRAN x10^3 (test 0.00-0.06 code = 9984331342) LYMPH x10^3 (test code 1.68 10*3/uL 1.09-3.23 = 731-0) MONO x10^3 (test code 0.45 10*3/uL 0.36-1.02 = 742-7) EOS x10^3 (test code = 0.11 10*3/uL 0.06-0.53 711-2) BASO x10^3 (test code 0.01-0.09 = 704-7) Lab Interpretation Abnormal (test code = 93251-1) [facility] WITH [id number] 08:51:40 Test Item Value Reference Range Interpretation [...] RDW-SD (test code = 44.9 fL 38.5-51.6 14133-9) RDW-CV (test code = 14.3 % 12.1-15.4 788-0) PLT (test code = 287 See_Comment [Automated 777-3) message] The sy stem which generated this result transmitted reference range : 150 - 328 10*3/ ?L. The reference r meredith was not used to interpret this result as normal/abnormal . MPV (test code = 8.9 fL 9.8-13.0 L 69772-3) NRBC/100 WBC (test 0.0 See_Comment [Automat ed code = 4278714661) message] The system which generated this result transmitted reference range : 0.0 - 10.0 /100 WBCs. The refer ence range was not u sed to interpret th is result as normal/abnormal . NRBC x10^3 (test code See_Comment [Auto mated = 4314758412) message] The s ystem which generated this result transmitted reference range : 10*3/?L. The reference range was not used to interpret this result as normal/abnormal . GRAN MAT (NEUT) % 52.5 % (test code = 770-8) IMM GRAN % (test code 0.20 % = 9361425695) LYMPH % (test code = 35.2 % 736-9) MONO % (test code = 9.4 % 5905-5) EOS % (test code = 2.3 % 713-8) BASO % (test code = 0.4 % 706-2) GRAN MAT x10^3(ANC) 2.50 10*3/uL 1.99-6.95 (test code = 5630433564) IMM GRAN x10^3 (test 0.00-0.06 code = 9307947656) LYMPH x10^3 (test code 1.68 10*3/uL 1.09-3.23 = 731-0) MONO x10^3 (test code 0.45 10*3/uL 0.36-1.02 = 742-7) EOS x10^3 (test code = 0.11 10*3/uL 0.06-0.53 711-2) BASO x10^3 (test code 0.01-0.09 = 704-7) Lab Interpretation Abnormal (test code = 17568-8) [facility] 18:32:29 Test Item Value Reference Range Interpretation Comments PALB (test code = 88938-2) 28.4 mg/dL 18.0-45.0 Lab Interpretation (test code = Normal 67862-9) [facility] 18:32:29 Test Item Value Reference Range Interpretation Comments PALB (test code = 33918-4) 28.4 mg/dL 18.0-45.0 Lab Interpretation (test code = Normal 96101-1) [facility] 18:22:51 Test Item Value Reference Range Interpretation Comments ALBUMIN (test code = 6190157991) 3.7 g/dL 3.5-5.0 Lab Interpretation (test code = Normal 82510-4) [facility] 18:22:51 Test Item Value Reference Range Interpretation Comments ALBUMIN (test code = 1108070665) 3.7 g/dL 3.5-5.0 Lab Interpretation (test code = Normal 64268-7) [facility] 08:07:43 Test Item Value Reference Range Interpretation Comments MAGNESIUM (test code = 1029345634) 1.6 mg/dL 1.7-2.4 L Lab Interpretation (test code = Abnormal 37424-0) [facility] (NA, K, CL, CO2, GLUCOSE, BUN, CREATININE, CA)2022-11-28 08:07:43 Test Item Value Reference Range Interpretation Comments NA (test code = 129 mmol/L 135-145 L 3060373399) K (test code = 4.8 mmol/L 3.5-5.0 9773375158) CL (test code = 101 mmol/L 98-108 7077159137) CO2 TOTAL (test code = 20 mmol/L 23-31 L 7161076803) AGAP (test code = 8 2-16 2589657583) BUN (test code = 37 mg/dL 7-23 H 6424946030) GLUCOSE (test code = 92 mg/dL 70-110 7191290701) CREATININE (test code = 2.09 mg/dL 0.60-1.25 H 5715567548) CALCIUM (test code = 8.3 mg/dL 8.6-10.6 L 9255452171) eGFR (test code = 33.5 mL/min/1.73m2 6910396384) GILBERTO (test code = GILBERTO) Association of [...] tests). Lab Interpretation Abnormal (test code = 99471-1) [facility] 08:07:43 Test Item Value Reference Range Interpretation Comments MAGNESIUM (test code = 0799597195) 1.6 mg/dL 1.7-2.4 L Lab Interpretation (test code = Abnormal 52423-9) [facility] (NA, K, CL, CO2, GLUCOSE, BUN, CREATININE, CA)2022-11-28 08:07:43 Test Item Value Reference Range Interpretation Comments NA (test code = 129 mmol/L 135-145 L 3653658564) K (test code = 4.8 mmol/L 3.5-5.0 0060335986) CL (test code = 101 mmol/L 98-108 1239325213) CO2 TOTAL (test code = 20 mmol/L 23-31 L 6208336224) AGAP (test code = 8 2-16 9078621655) BUN (test code = 37 mg/dL 7-23 H 5260537348) GLUCOSE (test code = 92 mg/dL 70-110 6746129456) CREATININE (test code = 2.09 mg/dL 0.60-1.25 H 9987255231) CALCIUM (test code = 8.3 mg/dL 8.6-10.6 L 3530887590) eGFR (test code = 33.5 mL/min/1.73m2 7816010992) GILBERTO (test code = GILBERTO) Association of [...] tests). Lab Interpretation Abnormal (test code = 64101-3) [facility] [id number] 21:10:50 Test Item Value Reference Range Interpretation Comments LACTIC ACID (test code = 1.18 mmol/L 0.50-2.20 4648292380) Lab Interpretation (test code = Normal 13620-3) [facility] [id number] 21:10:50 Test Item Value Reference Range Interpretation Comments LACTIC ACID (test code = 1.18 mmol/L 0.50-2.20 8478627704) Lab Interpretation (test code = Normal 07860-1) [facility] METABOLIC PANEL (NA, K, CL, CO2, GLUCOSE, BUN, CREATININE, CA)2022-11-27 19:07:08 Test Item Value Reference Range Interpretation Comments NA (test code = 131 mmol/L 135-145 L 0739719216) K (test code = 4.5 mmol/L 3.5-5.0 3441759652) CL (test code = 103 mmol/L 98-108 1019836940) CO2 TOTAL (test code = 18 mmol/L 23-31 L 4669138847) AGAP (test code = 10 2-16 8768587300) BUN (test code = 42 mg/dL 7-23 H 0427631113) GLUCOSE (test code = 120 mg/dL 70-110 H 8120664836) CREATININE (test code = 3.28 mg/dL 0.60-1.25 H 3823319406) CALCIUM (test code = 9.1 mg/dL 8.6-10.6 0784505793) eGFR (test code = 19.9 mL/min/1.73m2 3944402859) GILBERTO (test code = GILBERTO) Association of [...] tests). Lab Interpretation Abnormal (test code = 30535-3) [facility] METABOLIC PANEL (NA, K, CL, CO2, GLUCOSE, BUN, CREATININE, CA)2022-11-27 19:07:08 Test Item Value Reference Range Interpretation Comments NA (test code = 131 mmol/L 135-145 L 2527157164) K (test code = 4.5 mmol/L 3.5-5.0 1192202352) CL (test code = 103 mmol/L 98-108 3672444102) CO2 TOTAL (test code = 18 mmol/L 23-31 L 6142109069) AGAP (test code = 10 2-16 8837278159) BUN (test code = 42 mg/dL 7-23 H 9324876384) GLUCOSE (test code = 120 mg/dL 70-110 H 1235270823) CREATININE (test code = 3.28 mg/dL 0.60-1.25 H 5388691943) CALCIUM (test code = 9.1 mg/dL 8.6-10.6 8895960413) eGFR (test code = 19.9 mL/min/1.73m2 6252952032) GILBERTO (test code = GILBERTO) Association of [...] tests). Lab Interpretation Abnormal (test code = 17960-9) [facility]. METABOLIC PANEL (71538)2022-11-27 14:49:21 Test Item Value Reference Range Interpretation Comments NA (test code = 131 mmol/L 135-145 L 7231004790) K (test code = 6.2 mmol/L 3.5-5.0 HH 0095226534) CL (test code = 95 mmol/L 98-108 L 7804005479) CO2 TOTAL (test code = 19 mmol/L 23-31 L 6032092411) AGAP (test code = 17 2-16 H 3926824378) BUN (test code = 43 mg/dL 7-23 H 7885057290) GLUCOSE (test code = 74 mg/dL 70-110 2451533911) CREATININE (test code = 4.39 mg/dL 0.60-1.25 H 2951579464) TOTAL BILI (test code = 0.6 mg/dL 0.1-1.0 0337961101) CALCIUM (test code = 10.9 mg/dL 8.6-10.6 H 2122872880) T PROTEIN (test code = 9.1 g/dL 6.3-8.2 H 2087159509) ALBUMIN (test code = 5.7 g/dL 3.5-5.0 H 6129240785) ALK PHOS (test code = 97 U/L 34-122 2226255917) ALTv (test code = 43 U/L 5-50 2-6) AST(SGOT) (test code = 29 U/L 13-40 7169725241) eGFR (test code = 14.2 mL/min/1.73m2 9095331458) GILBERTO (test code = GILBERTO) Association of [...] tests). Lab Interpretation Abnormal (test code = 74108-1) [facility]. METABOLIC PANEL (25577)2022-11-27 14:49:21 Test Item Value Reference Range Interpretation Comments NA (test code = 131 mmol/L 135-145 L 4134607293) K (test code = 6.2 mmol/L 3.5-5.0 HH 4874674207) CL (test code = 95 mmol/L 98-108 L 9290211825) CO2 TOTAL (test code = 19 mmol/L 23-31 L 1231078005) AGAP (test code = 17 2-16 H 7654872271) BUN (test code = 43 mg/dL 7-23 H 2739688886) GLUCOSE (test code = 74 mg/dL 70-110 3025197686) CREATININE (test code = 4.39 mg/dL 0.60-1.25 H 8869448861) TOTAL BILI (test code = 0.6 mg/dL 0.1-1.7 1610738500) CALCIUM (test code = 10.9 mg/dL 8.6-10.6 H 7646299737) T PROTEIN (test code = 9.1 g/dL 6.3-8.2 H 0807472582) ALBUMIN (test code = 5.7 g/dL 3.5-5.0 H 9317515469) ALK PHOS (test code = 97 U/L 34-122 4184834766) ALTv (test code = 43 U/L 5-50 1742-6) AST(SGOT) (test code = 29 U/L 13-40 2211839559) eGFR (test code = 14.2 mL/min/1.73m2 4504325576) GILBERTO (test code = GILBERTO) Association of [...] tests). Lab Interpretation Abnormal (test code = 04752-5) [facility] [id number] 14:33:54 Test Item Value Reference Range Interpretation Comments TROPONIN I (test code = 0.003 ng/mL <=0.034 4042121291) GILBERTO (test code = GILBERTO) Reference (Normal) [...] biotin. Lab Interpretation Normal (test code = 18175-2) [facility] [id number] 14:33:54 Test Item Value Reference Range Interpretation Comments TROPONIN I (test code = 0.003 ng/mL <=0.034 3864346822) GILBERTO (test code = GILBERTO) Reference (Normal) [...] biotin. Lab Interpretation Normal (test code = 09807-5) [facility] 14:23:47 Test Item Value Reference Range Interpretation Comments MAGNESIUM (test code = 2195194264) 2.2 mg/dL 1.7-2.4 Lab Interpretation (test code = Normal 07291-1) [facility] 14:23:47 Test Item Value Reference Range Interpretation Comments PHOSPHORUS (test code = 9938746421) 8.1 mg/dL 2.5-5.0 H Lab Interpretation (test code = Abnormal 79076-9) [facility] 14:23[facility]47 Test Item Value Reference Range Interpretation Comments MAGNESIUM (test code = 4964975315) 2.2 mg/dL 1.7-2.4 Lab Interpretation (test code = Normal 16481-5) [facility] 14:23:47 Test Item Value Reference Range Interpretation Comments PHOSPHORUS (test code = 0235832610) 8.1 mg/dL 2.5-5.0 H Lab Interpretation (test code = Abnormal 51162-9) [facility] WITH [id number] 14:09:46 Test Item Value Reference Range Interpretation Comments WBC (test code = 10.08 See_Comment [Automated 3290-2) message] The sy stem which generated this result transmitted reference range : 4.20 - 10.70 10*3/?L. The reference range was not used to interpret this result as normal/abnormal . RBC (test code = 4.93 See_Comment [Automated 254-8) message] The sy stem which generated this [...] RDW-SD (test code = 45.6 fL 38.5-51.6 90370-4) RDW-CV (test code = 14.5 % 12.1-15.4 788-0) PLT (test code = 454 See_Comment H [Automated 777-3) message] The sy stem which generated this result transmitted reference range : 150 - 328 10*3/ ?L. The reference r meredith was not used to interpret this result as normal/abnormal . MPV (test code = 8.9 fL 9.8-13.0 L 52419-8) NRBC/100 WBC (test 0.0 See_Comment [Automat ed code = 8260243258) message] The system which generated this result transmitted reference range : 0.0 - 10.0 /100 WBCs. The refer ence range was not u sed to interpret th is result as normal/abnormal . NRBC x10^3 (test code See_Comment [Auto mated = 8569831586) message] The s ystem which generated this result transmitted reference range : 10*3/?L. The reference range was not used to interpret this result as normal/abnormal . GRAN MAT (NEUT) % 73.5 % (test code = 770-8) IMM GRAN % (test code 1.20 % = 8264052480) LYMPH % (test code = 15.6 % 736-9) MONO % (test code = 8.6 % 5905-5) EOS % (test code = 0.6 % 713-8) BASO % (test code = 0.5 % 706-2) GRAN MAT x10^3(ANC) 7.41 10*3/uL 1.99-6.95 H (test code = 8842589483) IMM GRAN x10^3 (test 0.12 10*3/uL 0.00-0.06 H code = 5836214923) LYMPH x10^3 (test code 1.57 10*3/uL 1.09-3.23 = 731-0) MONO x10^3 (test code 0.87 10*3/uL 0.36-1.02 = 742-7) EOS x10^3 (test code = 0.06 10*3/uL 0.06-0.53 711-2) BASO x10^3 (test code 0.05 10*3/uL 0.01-0.09 = 704-7) Lab Interpretation Abnormal (test code = 97270-9) [facility] WITH [id number] 14:09:46 Test Item Value Reference Range Interpretation [...] RDW-SD (test code = 45.6 fL 38.5-51.6 44556-3) RDW-CV (test code = 14.5 % 12.1-15.4 788-0) PLT (test code = 454 See_Comment H [Automated 777-3) message] The sy stem which generated this result transmitted reference range : 150 - 328 10*3/ ?L. The reference r meredith was not used to interpret this result as normal/abnormal . MPV (test code = 8.9 fL 9.8-13.0 L 37314-6) NRBC/100 WBC (test 0.0 See_Comment [Automat ed code = 1434701918) message] The system which generated this result transmitted reference range : 0.0 - 10.0 /100 WBCs. The refer ence range was not u sed to interpret th is result as normal/abnormal . NRBC x10^3 (test code See_Comment [Auto mated = 3121794560) message] The s ystem which generated this result transmitted reference range : 10*3/?L. The reference range was not used to interpret this result as normal/abnormal . GRAN MAT (NEUT) % 73.5 % (test code = 770-8) IMM GRAN % (test code 1.20 % = 8964367355) LYMPH % (test code = 15.6 % 736-9) MONO % (test code = 8.6 % 5905-5) EOS % (test code = 0.6 % 713-8) BASO % (test code = 0.5 % 706-2) GRAN MAT x10^3(ANC) 7.41 10*3/uL 1.99-6.95 H (test code = 9978312666) IMM GRAN x10^3 (test 0.12 10*3/uL 0.00-0.06 H code = 9743673543) LYMPH x10^3 (test code 1.57 10*3/uL 1.09-3.23 = 731-0) MONO x10^3 (test code 0.87 10*3/uL 0.36-1.02 = 742-7) EOS x10^3 (test code = 0.06 10*3/uL 0.06-0.53 711-2) BASO x10^3 (test code 0.05 10*3/uL 0.01-0.09 = 704-7) Lab Interpretation Abnormal (test code = 90901-5) [facility] Ucdnw5937-14-44 14:08:40 Test Item Value Reference Range Interpretation Comments LACTIC ACID (test code = 2.99 mmol/L 0.50-2.20 H QUE S 7165986753) Lab Interpretation (test code = Abnormal 51324-7) [facility] Rtixb2354-83-40 14:08:40 Test Item Value Reference Range Interpretation Comments LACTIC ACID (test code = 2.99 mmol/L 0.50-2.20 H QUE S 5336946151) Lab Interpretation (test code = Abnormal 66777-6) [facility] WITH [id number] 10:10:43 Test Item Value Reference Range Interpretation [...] RDW-SD (test code = 44.1 fL 38.5-51.6 25999-4) RDW-CV (test code = 13.9 % 12.1-15.4 788-0) PLT (test code = 274 See_Comment [Automated 777-3) message] The sy stem which generated this result transmitted reference range : 150 - 328 10*3/ ?L. The reference r meredith was not used to interpret this result as normal/abnormal . MPV (test code = 9.0 fL 9.8-13.0 L 73412-7) NRBC/100 WBC (test 0.0 See_Comment [Automat ed code = 0755627227) message] The system which generated this result transmitted reference range : 0.0 - 10.0 /100 WBCs. The refer ence range was not u sed to interpret th is result as normal/abnormal . NRBC x10^3 (test code See_Comment [Auto mated = 3787437608) message] The s ystem which generated this result transmitted reference range : 10*3/?L. The reference range was not used to interpret this result as normal/abnormal . GRAN MAT (NEUT) % 38.7 % (test code = 770-8) IMM GRAN % (test code 0.00 % = 0841547577) LYMPH % (test code = 48.7 % 736-9) MONO % (test code = 10.2 % 5905-5) EOS % (test code = 1.9 % 713-8) BASO % (test code = 0.5 % 706-2) GRAN MAT x10^3(ANC) 1.44 10*3/uL 1.99-6.95 L (test code = 5598696026) IMM GRAN x10^3 (test 0.00-0.06 code = 7514751615) LYMPH x10^3 (test code 1.81 10*3/uL 1.09-3.23 = 731-0) MONO x10^3 (test code 0.38 10*3/uL 0.36-1.02 = 742-7) EOS x10^3 (test code = 0.07 10*3/uL 0.06-0.53 711-2) BASO x10^3 (test code 0.01-0.09 = 704-7) Lab Interpretation Abnormal (test code = 35841-2) [facility] METABOLIC PANEL (NA, K, CL, CO2, GLUCOSE, BUN, CREATININE, CA)2022-11-22 10:02:02 Test Item Value Reference Range Interpretation Comments NA (test code = 130 mmol/L 135-145 L 6563501850) K (test code = 4.7 mmol/L 3.5-5.0 1063414516) CL (test code = 103 mmol/L 98-108 5389693746) CO2 TOTAL (test code = 23 mmol/L 23-31 0275855115) AGAP (test code = 4 2-16 5467709199) BUN (test code = 16 mg/dL 7-23 0917670009) GLUCOSE (test code = 81 mg/dL 70-110 3304792603) CREATININE (test code = 1.23 mg/dL 0.60-1.25 4491050703) CALCIUM (test code = 7.7 mg/dL 8.6-10.6 L 3568397403) eGFR (test code = 61.8 mL/min/1.73m2 3676763685) GILBERTO (test code = GILBERTO) Association of [...] tests). Lab Interpretation Abnormal (test code = 17806-4) [facility]2023-04-01 10:02:02 Test Item Value Reference Range Interpretation Comments MAGNESIUM (test code = 3413807796) 1.6 mg/dL 1.7-2.4 L Lab Interpretation (test code = Abnormal 86309-3) [facility]2023-03-31 05:39:05 Test Item Value Reference Range Interpretation Comments MAGNESIUM (test code = 6396344080) 1.4 mg/dL 1.7-2.4 L Lab Interpretation (test code = Abnormal 74792-2) [facility], K, CL, CO2, GLUCOSE, BUN, CREATININE, CA)2022-11-21 05:39:04 Test Item Value Reference Range Interpretation Comments NA (test code = 126 mmol/L 135-145 L 6775375673) K (test code = 4.4 mmol/L 3.5-5.0 9513687973) CL (test code = 103 mmol/L 98-108 8572790656) CO2 TOTAL (test code = 18 mmol/L 23-31 L 7902274099) AGAP (test code = 5 2-16 6324095956) BUN (test code = 32 mg/dL 7-23 H 9309658157) GLUCOSE (test code = 80 mg/dL 70-110 5871387770) CREATININE (test code = 1.38 mg/dL 0.60-1.25 H 3802390785) CALCIUM (test code = 7.5 mg/dL 8.6-10.6 L 0393203742) eGFR (test code = 54.1 mL/min/1.73m2 2394783686) GILBERTO (test code = GILBERTO) Association of [...] tests). Lab Interpretation Abnormal (test code = 14374-5) [facility] WITH [id number] 05:19:03 Test Item Value Reference Range Interpretation [...] RDW-SD (test code = 43.2 fL 38.5-51.6 22116-0) RDW-CV (test code = 13.6 % 12.1-15.4 788-0) PLT (test code = 272 See_Comment [Automated 777-3) message] The sy stem which generated this result transmitted reference range : 150 - 328 10*3/ ?L. The reference r meredith was not used to interpret this result as normal/abnormal . MPV (test code = 9.0 fL 9.8-13.0 L 24587-2) NRBC/100 WBC (test 0.0 See_Comment [Automat ed code = 2420173860) message] The system which generated this result transmitted reference range : 0.0 - 10.0 /100 WBCs. The refer ence range was not u sed to interpret th is result as normal/abnormal . NRBC x10^3 (test code See_Comment [Auto mated = 9623719974) message] The s ystem which generated this result transmitted reference range : 10*3/?L. The reference range was not used to interpret this result as normal/abnormal . GRAN MAT (NEUT) % 51.1 % (test code = 770-8) IMM GRAN % (test code 0.20 % = 9244082659) LYMPH % (test code = 37.3 % 736-9) MONO % (test code = 10.0 % 5905-5) EOS % (test code = 1.0 % 713-8) BASO % (test code = 0.4 % 706-2) GRAN MAT x10^3(ANC) 2.51 10*3/uL 1.99-6.95 (test code = 7439623484) IMM GRAN x10^3 (test 0.00-0.06 code = 0997027172) LYMPH x10^3 (test code 1.83 10*3/uL 1.09-3.23 = 731-0) MONO x10^3 (test code 0.49 10*3/uL 0.36-1.02 = 742-7) EOS x10^3 (test code = 0.05 10*3/uL 0.06-0.53 L 711-2) BASO x10^3 (test code 0.01-0.09 = 704-7) Lab Interpretation Abnormal (test code = 15363-3) [facility] [id number] 05:15:42 Test Item Value Reference Range Interpretation Comments PH (test code = 7.32 7.32-7.42 3924658876) PCO2 PANKAJ (test code = 32 See_Comment L [Auto mated 4492128357) message] The sy stem which generated this result transmitted reference range : 41 - 51 mmHg. The reference range was not used to interpret this result as normal/abnormal . PO2 PANKAJ (test code = 45 See_Comment H [Autom ated 8613941575) message] The sy stem which generated this result transmitted reference range : 25 - 40 mmHg. The reference range was not used to interpret this result as normal/abnormal . HCO3 PANKAJ (test code = 16 See_Comment L [Auto mated 6230851667) message] The sy stem which generated this result transmitted reference range : 24 - 28 mEq/L. The reference range was not used to interpret this result as normal/abnormal . AC VBE(BEAKER) (test -8.8 mEq/L code = 9752056115) THB PANKAJ (test code = 11.2 g/dL 13.5-18.0 L 1187670272) %O2HB PANKAJ (test code = 80.5 % 52.0-63.0 H 7376232751) %COHB PANKAJ (test code = 0.1 % 0.0-1.5 9064019453) %METHB PANKAJ (test code = 0.3 % 0.4-1.5 L 9880462793) VOL%O2 PANKAJ (test code = 12.7 % 6.0-12.0 H 0440190763) NA (test code = 126 mmol/L 135-145 L 5283141287) K+ (test code = 4.1 mmol/L 3.5-5.0 7228888443) AC CA IONZ (test code = 4.60 mg/dL 4.50-5.30 3643349590) GLUCOSE (test code = 78 mg/dL 70-110 8416316883) LACTIC ACID (test code 1.07 mmol/L 0.50-2.20 = 9813212547) Lab Interpretation Abnormal (test code = 97814-0) [id number] 22:34:33 Test Item Value Reference Range Interpretation Comments FREE T4 (test code = 1.10 See_Comment [Autom ated message] 8416086925) The system [employer] generated this result transmitted ref erence range: 0.78 - 2 .20 ng/dL:. The ref erence range was not u sed to interpret this result as normal/abnor mal. Lab Interpretation (test Normal code = 13225-8) [facility] CenterTHY[facility]ID STIMULATING [id number] 21:13:59 Test Item Value Reference Range Interpretation Comments TSH (test code = 4.81 See_Comment H Biotin has been 2924499855) reported to cau se a negative bias, interpret resul ts relative to pat ient's use of biotin. [Automated mess age] The system [employer] generated this result transmitted ref erence range: 0.45 - 4 .70 mIU/L. The refe rence range was not u sed to interpret this result as normal/abnor mal. Lab Interpretation (test Abnormal code = 97609-8) [facility] CenterL[facility] Whole [id number] 15:00:25 Test Item Value Reference Range Interpretation Comments LACTIC ACID (test code = 2.76 mmol/L 0.50-2.20 H 0641181290) Lab Interpretation (test code = Abnormal 86628-7) [facility] 13:27:44 Test Item Value Reference Range Interpretation Comments ALBUMIN (test code = 9615866114) 3.4 g/dL 3.5-5.0 L Lab Interpretation (test code = Abnormal 51631-3) [facility] CenterL[facility] Whole [id number] 11:43:05 Test Item Value Reference Range Interpretation Comments LACTIC ACID (test code = 2.56 mmol/L 0.50-2.20 H QUE S 1487223024) Lab Interpretation (test code = Abnormal 76272-1) [facility] CenterCORTISOL [id number] 11:22:18 Test Item Value Reference Range Interpretation Comments MARIAM AM (test code = 4.9 ug/dL 4.5-23.0 1457981490) GILBERTO (test code = GILBERTO) Biotin has been reported to cause a positive bias, interpret results relative to patient's use of biotin. Lab Interpretation (test Normal code = 02728-7) [facility] WITH [id number] 11:14:33 Test Item Value Reference Range Interpretation Comments WBC (test code = 4.45 See_Comment [Automated 5790-2) message] The sy stem which generated this result transmitted reference range : 4.20 - 10.70 10*3/?L. The reference range was not used to interpret this result as normal/abnormal . RBC (test code = 3.53 See_Comment L [Automated 599-8) message] The sy [...] RDW-SD (test code = 42.9 fL 38.5-51.6 67017-8) RDW-CV (test code = 13.9 % 12.1-15.4 788-0) PLT (test code = 310 See_Comment [Automated 777-3) message] The sy stem which generated this result transmitted reference range : 150 - 328 10*3/ ?L. The reference r meredith was not used to interpret this result as normal/abnormal . MPV (test code = 9.2 fL 9.8-13.0 L 79045-6) NRBC/100 WBC (test 0.0 See_Comment [Automat ed code = 6943711186) message] The system which generated this result transmitted reference range : 0.0 - 10.0 /100 WBCs. The refer ence range was not u sed to interpret th is result as normal/abnormal . NRBC x10^3 (test code See_Comment [Auto mated = 4699651538) message] The s ystem which generated this result transmitted reference range : 10*3/?L. The reference range was not used to interpret this result as normal/abnormal . GRAN MAT (NEUT) % 53.3 % (test code = 770-8) IMM GRAN % (test code 0.20 % = 7204011466) LYMPH % (test code = 36.2 % 736-9) MONO % (test code = 8.8 % 5905-5) EOS % (test code = 1.1 % 713-8) BASO % (test code = 0.4 % 706-2) GRAN MAT x10^3(ANC) 2.37 10*3/uL 1.99-6.95 (test code = 2455881002) IMM GRAN x10^3 (test 0.00-0.06 code = 8623330429) LYMPH x10^3 (test code 1.61 10*3/uL 1.09-3.23 = 731-0) MONO x10^3 (test code 0.39 10*3/uL 0.36-1.02 = 742-7) EOS x10^3 (test code = 0.05 10*3/uL 0.06-0.53 L 711-2) BASO x10^3 (test code 0.01-0.09 = 704-7) Lab Interpretation Abnormal (test code = 69942-2) [facility] METABOLIC PANEL (NA, K, CL, CO2, GLUCOSE, BUN, CREATININE, CA)2022-11-20 10:49:51 Test Item Value Reference Range Interpretation Comments NA (test code = 125 mmol/L 135-145 L 5665022852) K (test code = 4.7 mmol/L 3.5-5.0 Slight 6182403338) hemolysis CL (test code = 104 mmol/L 98-108 4538483445) CO2 TOTAL (test code 13 mmol/L 23-31 L = 0191524641) AGAP (test code = 8 2-16 5862432441) BUN (test code = 60 mg/dL 7-23 H Slight 1396038133) hemolysis GLUCOSE (test code = 88 mg/dL 70-110 3794097077) CREATININE (test code 1.97 mg/dL 0.60-1.25 H = 3662770958) CALCIUM (test code = 7.7 mg/dL 8.6-10.6 L 8015543105) eGFR (test code = 35.9 mL/min/1.73m2 1004261362) GILBERTO (test code = GILBERTO) Association of [...] tests). Lab Interpretation Abnormal (test code = 03398-0) [facility] CenterMAGNESIUM2023-[facility]-30 10:49:51 Test Item Value Reference Range Interpretation Comments MAGNESIUM (test code = 5893405384) 1.7 mg/dL 1.7-2.4 Lab Interpretation (test code = Normal 97198-6) [facility] (NA, K, CL, CO2, GLUCOSE, BUN, CREATININE, CA)2022-11-20 01:11:20 Test Item Value Reference Range Interpretation Comments NA (test code = 126 mmol/L 135-145 L 7044665214) K (test code = 4.3 mmol/L 3.5-5.0 9824580956) CL (test code = 98 mmol/L 98-108 8200719578) CO2 TOTAL (test code = 19 mmol/L 23-31 L 7414344814) AGAP (test code = 9 2-16 1764870953) BUN (test code = 78 mg/dL 7-23 H 7912593838) GLUCOSE (test code = 101 mg/dL 70-110 0146469674) CREATININE (test code = 2.49 mg/dL 0.60-1.25 H 9192735540) CALCIUM (test code = 7.8 mg/dL 8.6-10.6 L 6400846963) eGFR (test code = 27.4 mL/min/1.73m2 7571587190) GILBERTO (test code = GILBERTO) Association of [...] tests). Lab Interpretation Abnormal (test code = 77207-3) [facility] METABOLIC PANEL (NA, K, CL, CO2, GLUCOSE, BUN, CREATININE, CA)2022-11-19 20:31:33 Test Item Value Reference Range Interpretation Comments NA (test code = 123 mmol/L 135-145 L 8730636385) K (test code = 4.4 mmol/L 3.5-5.0 1621775051) CL (test code = 97 mmol/L 98-108 L 5516254403) CO2 TOTAL (test code = 15 mmol/L 23-31 L 8322983029) AGAP (test code = 11 2-16 0384730067) BUN (test code = 81 mg/dL 7-23 H 0201394317) GLUCOSE (test code = 121 mg/dL 70-110 H 2739047843) CREATININE (test code = 2.61 mg/dL 0.60-1.25 H 3617177447) CALCIUM (test code = 7.7 mg/dL 8.6-10.6 L 7321998032) eGFR (test code = 25.9 mL/min/1.73m2 5740456940) GILBERTO (test code = GILBERTO) Association of [...] tests). Lab Interpretation Abnormal (test code = 15013-5) [facility] CenterETHANOL2023-03-29 17:12:43 ALCOHOL<10mg/dL11/19/2022 12:12 PM [facility] SERVICESToxic Greater than or equal to 80 mg/dL. NOTE: Whole blood values are approximately 10% to 15% lower than serum and plasma.[facility] CenterCOMP. METABOLIC PANEL (22663)2022-11-19 16:28:25 Test Item Value Reference Range Interpretation Comments NA (test code = 126 mmol/L 135-145 L 0930971131) K (test code = 5.6 mmol/L 3.5-5.0 H 4646810882) CL (test code = 92 mmol/L 98-108 L 7295989416) CO2 TOTAL (test code = 14 mmol/L 23-31 L 5373907859) AGAP (test code = 20 2-16 H 7680606390) BUN (test code = 89 mg/dL 7-23 H 6669168447) GLUCOSE (test code = 98 mg/dL 70-110 5310957915) CREATININE (test code = 3.16 mg/dL 0.60-1.25 H 0023268475) TOTAL BILI (test code = 0.4 mg/dL 0.1-1.0 3006328535) CALCIUM (test code = 9.6 mg/dL 8.6-10.6 6351506344) T PROTEIN (test code = 8.0 g/dL 6.3-8.2 3694830654) ALBUMIN (test code = 5.0 g/dL 3.5-5.0 3106542601) ALK PHOS (test code = 102 U/L 34-122 2408500863) ALTv (test code = 38 U/L 5-50 1742-6) AST(SGOT) (test code = 32 U/L 13-40 0048639100) eGFR (test code = 20.8 mL/min/1.73m2 9084224821) GILBERTO (test code = GILBERTO) Association of [...] tests). Lab Interpretation Abnormal (test code = 71006-4) [facility] CenterMAGN[facility]IUM2023-[facility]-29 16:28:25 Test Item Value Reference Range Interpretation Comments MAGNESIUM (test code = 5338773946) 2.4 mg/dL 1.7-2.4 Lab Interpretation (test code = Normal 97873-6) [facility] WITH [id number] 16:12:44 Test Item Value Reference Range Interpretation Comments WBC (test code = 5.96 See_Comment [Automated 4990-2) message] The sy stem which generated this result transmitted reference range : 4.20 - 10.70 10*3/?L. The reference range was not used to interpret this result as normal/abnormal . RBC (test code = 4.73 See_Comment [Automated 939-8) message] The sy stem which [...] RDW-SD (test code = 43.5 fL 38.5-51.6 51492-1) RDW-CV (test code = 14.0 % 12.1-15.4 788-0) PLT (test code = 446 See_Comment H [Automated 297-3) message] The sy stem which generated this result transmitted reference range : 150 - 328 10*3/ ?L. The reference r meredith was not used to interpret this result as normal/abnormal . MPV (test code = 9.0 fL 9.8-13.0 L 89862-1) NRBC/100 WBC (test 0.0 See_Comment [Automat ed code = 3369163266) message] The system which generated this result transmitted reference range : 0.0 - 10.0 /100 WBCs. The refer ence range was not u sed to interpret th is result as normal/abnormal . NRBC x10^3 (test code See_Comment [Auto mated = 5233336266) message] The s ystem which generated this result transmitted reference range : 10*3/?L. The reference range was not used to interpret this result as normal/abnormal . GRAN MAT (NEUT) % 73.7 % (test code = 770-8) IMM GRAN % (test code 0.30 % = 1105480752) LYMPH % (test code = 17.3 % 736-9) MONO % (test code = 7.9 % 5905-5) EOS % (test code = 0.5 % 713-8) BASO % (test code = 0.3 % 706-2) GRAN MAT x10^3(ANC) 4.39 10*3/uL 1.99-6.95 (test code = 4986156340) IMM GRAN x10^3 (test 0.00-0.06 code = 9667563714) LYMPH x10^3 (test code 1.03 10*3/uL 1.09-3.23 L = 731-0) MONO x10^3 (test code 0.47 10*3/uL 0.36-1.02 = 742-7) EOS x10^3 (test code = 0.03 10*3/uL 0.06-0.53 L 711-2) BASO x10^3 (test code 0.01-0.09 = 704-7) Lab Interpretation Abnormal (test code = 54217-1) [facility] METABOLIC PANEL (NA, K, CL, CO2, GLUCOSE, BUN, CREATININE, CA)2022-11-04 21:24:07 Test Item Value Reference Range Interpretation Comments NA (test code = 129 mmol/L 135-145 L 2416862642) K (test code = 3.8 mmol/L 3.5-5.0 Slight 9050894821) hemolysis CL (test code = 105 mmol/L 98-108 5311206967) CO2 TOTAL (test code 16 mmol/L 23-31 L = 7591069089) AGAP (test code = 8 2-16 5787498398) BUN (test code = 19 mg/dL 7-23 Slight 6325014920) hemolysis GLUCOSE (test code = 88 mg/dL 70-110 0574129455) CREATININE (test code 1.10 mg/dL 0.60-1.25 = 4934594679) CALCIUM (test code = 7.9 mg/dL 8.6-10.6 L 6965040947) eGFR (test code = 70.3 mL/min/1.73m2 7908957480) GILBERTO (test code = GILBERTO) Association of [...] tests). Lab Interpretation Abnormal (test code = 87935-0) [id number] 18:44:02 Test Item Value Reference Range Interpretation Comments NA (test code = 4592177578) 128 mmol/L 135-145 L Lab Interpretation (test code = Abnormal 38439-5) [facility] [id number] 14:16:32 Test Item Value Reference Range Interpretation Comments T. VOL U (test code = 2400 mL 6505588772) HR COLLECT (test code 24 Hours = 4675374151) NA URINE (test code = mmol/L 7698295700) NA U/24H (test code = Unable to calculate 6454069271) because, SODIUM URINE is less than the s ensitivity of the analyzer . [facility] [id number] 13:51:27 Test Item Value Reference Range Interpretation Comments T. VOL U (test code = 2400 mL 8378321475) HR COLLECT (test code = 24 Hours 6835674225) K URINE (test code = 3.2 mmol/L 1758230978) K U/24H (test code = 7.7 See_Comment L [Autom ated message] 8713425862) The system [employer] generated this result transmit dain reference range : 25.0 - 125.0 mmol/24H. The reference range was not used to interpret this result as normal/abnormal . Lab Interpretation Abnormal (test code = 99522-3) [facility] Metabolic Panel (NA, K, CL, CO2, GLUCOSE, BUN, CREATININE, CA)2022-11-03 11:23:03 Test Item Value Reference Range Interpretation Comments NA (test code = 127 mmol/L 135-145 L 5152626079) K (test code = 3.4 mmol/L 3.5-5.0 L 6173680362) CL (test code = 102 mmol/L 98-108 5609317951) CO2 TOTAL (test code = 17 mmol/L 23-31 L 0534820226) AGAP (test code = 8 2-16 8472406867) BUN (test code = 38 mg/dL 7-23 H 4277157123) GLUCOSE (test code = 84 mg/dL 70-110 7953094803) CREATININE (test code = 1.44 mg/dL 0.60-1.25 H 5457104660) CALCIUM (test code = 8.0 mg/dL 8.6-10.6 L 3217395734) eGFR (test code = 51.5 mL/min/1.73m2 3413492188) GILBERTO (test code = GILBERTO) Association of [...] tests). Lab Interpretation Abnormal (test code = 94762-6) [facility] CenterMagnesium [id number] 11:20:32 Test Item Value Reference Range Interpretation Comments MAGNESIUM (test code = 3295157496) 1.8 mg/dL 1.7-2.4 Lab Interpretation (test code = Normal 85676-2) [facility] with Hrooqiydlkhl2061-84-95 11:11:14 Test Item Value Reference Range Interpretation Comments WBC (test code = 7.33 See_Comment [Automated 0109-2) message] The sy stem which generated this [...] RDW-SD (test code = 45.9 fL 38.5-51.6 37266-0) RDW-CV (test code = 14.4 % 12.1-15.4 788-0) PLT (test code = 301 See_Comment [Automated 777-3) message] The sy stem which generated this result transmitted reference range : 150 - 328 10*3/ ?L. The reference r meredith was not used to interpret this result as normal/abnormal . MPV (test code = 9.2 fL 9.8-13.0 L 69286-0) NRBC/100 WBC (test 0.0 See_Comment [Automat ed code = 9824645102) message] The system which generated this result transmitted reference range : 0.0 - 10.0 /100 WBCs. The refer ence range was not u sed to interpret th is result as normal/abnormal . NRBC x10^3 (test code See_Comment [Auto mated = 7404130792) message] The s ystem which generated this result transmitted reference range : 10*3/?L. The reference range was not used to interpret this result as normal/abnormal . GRAN MAT (NEUT) % 65.3 % (test code = 770-8) IMM GRAN % (test code 0.30 % = 7318987014) LYMPH % (test code = 23.9 % 736-9) MONO % (test code = 8.9 % 5905-5) EOS % (test code = 1.2 % 713-8) BASO % (test code = 0.4 % 706-2) GRAN MAT x10^3(ANC) 4.79 10*3/uL 1.99-6.95 (test code = 5038239993) IMM GRAN x10^3 (test 0.00-0.06 code = 0154461127) LYMPH x10^3 (test code 1.75 10*3/uL 1.09-3.23 = 731-0) MONO x10^3 (test code 0.65 10*3/uL 0.36-1.02 = 742-7) EOS x10^3 (test code = 0.09 10*3/uL 0.06-0.53 711-2) BASO x10^3 (test code 0.03 10*3/uL 0.01-0.09 = 704-7) Lab Interpretation Abnormal (test code = 48073-8) [facility] Center[facility]UM[facility] 04:51:03 Test Item Value Reference Range Interpretation Comments NA (test code = 6079229956) 125 mmol/L 135-145 L Lab Interpretation (test code = Abnormal 41972-7) [facility] CenterLactic Acid Whole Eqvpy6826-31-01 23:05:03 Test Item Value Reference Range Interpretation Comments LACTIC ACID (test code = 1.46 mmol/L 0.50-2.20 8119237183) Lab Interpretation (test code = Normal 37912-0) [facility]UM2023-[facility]-12 21:19:07 Test Item Value Reference Range Interpretation Comments MAGNESIUM (test code = 6913821902) 2.1 mg/dL 1.7-2.4 Lab Interpretation (test code = Normal 84378-4) [facility] CenterCOMP[facility]OL[facility] (22420)2022-11-02 21:19:06 Test Item Value Reference Range Interpretation Comments NA (test code = 123 mmol/L 135-145 L 4030794796) K (test code = 3.9 mmol/L 3.5-5.0 1539340828) CL (test code = 98 mmol/L 98-108 3035031061) CO2 TOTAL (test code = 18 mmol/L 23-31 L 0508825062) AGAP (test code = 7 2-16 7855902552) BUN (test code = 55 mg/dL 7-23 H 1525142094) GLUCOSE (test code = 87 mg/dL 70-110 1146795708) CREATININE (test code = 2.31 mg/dL 0.60-1.25 H 5362750257) TOTAL BILI (test code = 0.4 mg/dL 0.1-1.5 6781582046) CALCIUM (test code = 8.3 mg/dL 8.6-10.6 L 1467844835) T PROTEIN (test code = 6.2 g/dL 6.3-8.2 L 3091277077) ALBUMIN (test code = 3.7 g/dL 3.5-5.0 0560988442) ALK PHOS (test code = 85 U/L 34-122 5762734911) ALTv (test code = 21 U/L 5-50 1742-6) AST(SGOT) (test code = 24 U/L 13-40 3156525800) eGFR (test code = 29.9 mL/min/1.73m2 0228436387) GILBERTO (test code = GILBERTO) Association of [...] tests). Lab Interpretation Abnormal (test code = 09500-3) [facility] CenterTHYROID STIMULATING [id number] 19:17:37 Test Item Value Reference Range Interpretation Comments TSH (test code = 3.84 See_Comment [Automated message] 1962257505) The system [employer] generated this result transmitted ref erence range: 0.45 - 4 .70 mIU/L. The refe rence range was not u sed to interpret this result as normal/abnor mal. Lab Interpretation (test Normal code = 16891-9) [facility] CenterFREE [id number] 19:03:33 Test Item Value Reference Range Interpretation Comments FREE T4 (test code = 1.43 See_Comment [Autom ated message] 3217045332) The system [employer] generated this result transmitted ref erence range: 0.78 - 2 .20 ng/dL:. The ref erence range was not u sed to interpret this result as normal/abnor mal. Lab Interpretation (test Normal code = 75414-6) [facility] CenterHEPATIC FUNCTION PANEL ([id number]) (ALB,T.PRO,BILI T,BU/BC,ALT,AST,ALK PHOS)2022-11-02 18:46:31 Test Item Value Reference Range Interpretation Comments TOTAL BILI (test code = 2192234224) 0.3 mg/dL 0.1-1.1 BILI UNCON (test code = 5771780125) 0.0 mg/dL 0.1-1.1 L BILI CONJ (test code = 7745763761) 0.0 mg/dL 0.0-0.3 T PROTEIN (test code = 3960793351) 6.7 g/dL 6.3-8.2 ALBUMIN (test code = 6240247422) 4.2 g/dL 3.5-5.0 ALK PHOS (test code = 7297781730) 101 U/L 34-122 ALTv (test code = 1742-6) 22 U/L 5-50 AST(SGOT) (test code = 1737654079) 25 U/L 13-40 Lab Interpretation (test code = Abnormal 85944-3) [facility] CenterPhosphorus [id number] 18:46:31 Test Item Value Reference Range Interpretation Comments PHOSPHORUS (test code = 3269565977) 4.7 mg/dL 2.5-5.0 Lab Interpretation (test code = Normal 30424-4) [facility] CenterLactic Acid Whole [id number] 17:37:44 Test Item Value Reference Range Interpretation Comments LACTIC ACID (test code = 2.67 mmol/L 0.50-2.20 H 0789176030) Lab Interpretation (test code = Abnormal 44979-9) [facility] CenterTROPONIN [id number] 13:55:32 Test Item Value Reference Range Interpretation Comments TROPONIN I (test code = <=0.034 9496337477) GILBERTO (test code = GILBERTO) Reference (Normal) [...] biotin. Lab Interpretation Normal (test code = 08925-9) [facility] CenterCOMP[facility] METABOLIC PANEL ([id number])2022-11-02 13:44:10 Test Item Value Reference Range Interpretation Comments NA (test code = 128 mmol/L 135-145 L 2769235715) K (test code = 5.1 mmol/L 3.5-5.0 H 8639794870) CL (test code = 94 mmol/L 98-108 L 4056585493) CO2 TOTAL (test code = 17 mmol/L 23-31 L 1936070476) AGAP (test code = 17 2-16 H 7600567480) BUN (test code = 61 mg/dL 7-23 H 1013323592) GLUCOSE (test code = 73 mg/dL 70-110 4848883724) CREATININE (test code = 3.83 mg/dL 0.60-1.25 H 4781059834) TOTAL BILI (test code = 0.6 mg/dL 0.1-1.6 8994353500) CALCIUM (test code = 10.3 mg/dL 8.6-10.6 8382184633) T PROTEIN (test code = 8.9 g/dL 6.3-8.2 H 4635481744) ALBUMIN (test code = 5.5 g/dL 3.5-5.0 H 8027252910) ALK PHOS (test code = 105 U/L 34-122 6083937096) ALTv (test code = 28 U/L 5-50 2-6) AST(SGOT) (test code = 28 U/L 13-40 0843023749) eGFR (test code = 16.7 mL/min/1.73m2 4814253319) GILBERTO (test code = GILBERTO) Association of [...] tests). Lab Interpretation Abnormal (test code = 48547-6) [facility] CenterLIPASE2023-[facility] 13:44:10 Test Item Value Reference Range Interpretation Comments LIPASE (test code = 2550181407) 363 U/L 0-220 H Lab Interpretation (test code = Abnormal 57317-2) [facility] CenterMAGNESIUM2023-03[facility]10 Test Item Value Reference Range Interpretation Comments MAGNESIUM (test code = 4657992270) 2.6 mg/dL 1.7-2.4 H Lab Interpretation (test code = Abnormal 90030-7) [facility] [id number] 13:32:52 Test Item Value Reference Range Interpretation Comments WBC (test code = 10.22 See_Comment [Automated 0990-2) message] The sy stem which generated this result transmitted reference range : 4.20 - 10.70 10*3/?L. The reference range was not used to interpret this result as normal/abnormal . RBC (test code = 5.11 See_Comment [Automated 729-8) message] The sy stem which [...] RDW-SD (test code = 46.5 fL 38.5-51.6 11303-6) RDW-CV (test code = 14.5 % 12.1-15.4 788-0) PLT (test code = 405 See_Comment H [Automated 617-3) message] The sy stem which generated this result transmitted reference range : 150 - 328 10*3/ ?L. The reference r meredith was not used to interpret this result as normal/abnormal . MPV (test code = 9.0 fL 9.8-13.0 L 08716-5) NRBC/100 WBC (test 0.0 See_Comment [Automat ed code = [id number]) message] The system which generated this result transmitted reference range : 0.0 - 10.0 /100 WBCs. The refer ence range was not u sed to interpret th is result as normal/abnormal . NRBC x10^3 (test code See_Comment [Auto mated = [id number]) message] The s ystem which generated this result transmitted reference range : 10*3/?L. The reference range was not used to interpret this result as normal/abnormal . GRAN MAT (NEUT) % 72.2 % (test code = 770-8) IMM GRAN % (test code 0.70 % = 3147721369) LYMPH % (test code = 17.5 % 736-9) MONO % (test code = 8.4 % 5905-5) EOS % (test code = 0.8 % 713-8) BASO % (test code = 0.4 % 706-2) GRAN MAT x10^3(ANC) 7.38 10*3/uL 1.99-6.95 H (test code = 3049135176) IMM GRAN x10^3 (test 0.07 10*3/uL 0.00-0.06 H code = 5029977629) LYMPH x10^3 (test code 1.79 10*3/uL 1.09-3.23 = 731-0) MONO x10^3 (test code 0.86 10*3/uL 0.36-1.02 = 742-7) EOS x10^3 (test code = 0.08 10*3/uL 0.06-0.53 711-2) BASO x10^3 (test code 0.04 10*3/uL 0.01-0.09 = 704-7) Lab Interpretation Abnormal (test code = 84731-1) [facility] Test Item Value Reference Range Interpretation Comments LIPASE (test code = 0468102658) 260 U/L 0-220 H Lab Interpretation (test code = Abnormal 35815-1) [facility]OLIC [facility] ([id number])2022-10-20 02:09:42 Test Item Value Reference Range Interpretation Comments NA (test code = 130 mmol/L 135-145 L 6377460185) K (test code = 4.6 mmol/L 3.5-5.0 Slight 8903602683) hemolysis CL (test code = 100 mmol/L 98-108 2699726322) CO2 TOTAL (test code 20 mmol/L 23-31 L = 5590297490) AGAP (test code = 10 2-16 9751680210) BUN (test code = 31 mg/dL 7-23 H Slight 5267928132) hemolysis GLUCOSE (test code = 90 mg/dL 70-110 1174873645) CREATININE (test code 1.67 mg/dL 0.60-1.25 H = 7358291385) TOTAL BILI (test code 0.6 mg/dL 0.1-1.1 = 9349517203) CALCIUM (test code = 9.0 mg/dL 8.6-10.6 2294757311) T PROTEIN (test code 7.1 g/dL 6.3-8.2 = 5608062989) ALBUMIN (test code = 4.5 g/dL 3.5-5.0 4014599322) ALK PHOS (test code = 73 U/L 34-122 Slight 1272891970) hemolysis ALTv (test code = 22 U/L 5-50 1742-6) AST(SGOT) (test code 29 U/L 13-40 Slight = 7758264654) hemolysis eGFR (test code = 43.4 mL/min/1.73m2 6726145807) GILBERTO (test code = GILBERTO) Association of [...] tests). Lab Interpretation Abnormal (test code = 25179-9) [facility]42 Test Item Value Reference Range Interpretation Comments MAGNESIUM (test code = 9102825164) 1.9 mg/dL 1.7-2.4 Lab Interpretation (test code = Normal 89446-9) [facility] WITH [id number] 02:02:05 Test Item Value Reference Range Interpretation Comments WBC (test code = 9.57 See_Comment [Automated 3590-2) message] The sy stem which generated this result transmitted reference range : 4.20 - 10.70 10*3/?L. The reference range was not used to interpret this result as normal/abnormal . RBC (test code = 4.09 See_Comment L [Automated 699-8) message] The sy [...] RDW-SD (test code = 51.4 fL 38.5-51.6 26396-9) RDW-CV (test code = 15.7 % 12.1-15.4 H 788-0) PLT (test code = 330 See_Comment H [Automated 777-3) message] The sy stem which generated this result transmitted reference range : 150 - 328 10*3/ ?L. The reference r meredith was not used to interpret this result as normal/abnormal . MPV (test code = 8.9 fL 9.8-13.0 L 51095-0) NRBC/100 WBC (test 0.0 See_Comment [Automat ed code = 1894308175) message] The system which generated this result transmitted reference range : 0.0 - 10.0 /100 WBCs. The refer ence range was not u sed to interpret th is result as normal/abnormal . NRBC x10^3 (test code See_Comment [Auto mated = 8134155148) message] The s ystem which generated this result transmitted reference range : 10*3/?L. The reference range was not used to interpret this result as normal/abnormal . GRAN MAT (NEUT) % 64.1 % (test code = 770-8) IMM GRAN % (test code 0.40 % = 2818125956) LYMPH % (test code = 22.7 % 736-9) MONO % (test code = 11.0 % 5905-5) EOS % (test code = 1.3 % 713-8) BASO % (test code = 0.5 % 706-2) GRAN MAT x10^3(ANC) 6.14 10*3/uL 1.99-6.95 (test code = 4986883452) IMM GRAN x10^3 (test 0.04 10*3/uL 0.00-0.06 code = 1374754893) LYMPH x10^3 (test code 2.17 10*3/uL 1.09-3.23 = 731-0) MONO x10^3 (test code 1.05 10*3/uL 0.36-1.02 H = 742-7) EOS x10^3 (test code = 0.12 10*3/uL 0.06-0.53 711-2) BASO x10^3 (test code 0.05 10*3/uL 0.01-0.09 = 704-7) Lab Interpretation Abnormal (test code = 58318-3) [facility] METABOLIC PANEL (NA, K, CL, CO2, GLUCOSE, BUN, CREATININE, CA)2022-05-21 12:12:49 Test Item Value Reference Range Interpretation Comments NA (test code = 132 mmol/L 135-145 L 0427394553) K (test code = 3.4 mmol/L 3.5-5 L 0873104617) CL (test code = 106 mmol/L 98-108 3809481308) CO2 TOTAL (test code = 22 mmol/L 23-31 L 7652642897) AGAP (test code = 2-16 8888947138) BUN (test code = 22 mg/dL 7-23 9111897765) GLUCOSE (test code = 87 mg/dL 70-110 1323777125) CREATININE (test code = 0.98 mg/dL 0.6-1.25 2823591317) CALCIUM (test code = 7.8 mg/dL 8.6-10.6 L 1477627217) eGFR (test code = mL/min/1.73m2 2066453186) GILBERTO (test code = GILBERTO) Association of [...] tests). Lab Interpretation Abnormal (test code = 60944-2) [facility] 12:12:49 Test Item Value Reference Range Interpretation Comments MAGNESIUM (test code = 6418755369) 1.7 mg/dL 1.7-2.4 Lab Interpretation (test code = Normal 14042-6) [facility] 12:12:29 Test Item Value Reference Range Interpretation Comments PHOSPHORUS (test code = 5241584904) 2.3 mg/dL 2.5-5 L Lab Interpretation (test code = Abnormal 99684-7) [facility] WITH [id number] 11:40:10 Test Item Value Reference Range Interpretation [...] RDW-SD (test code = 46.9 fL 38.5-51.6 58699-0) RDW-CV (test code = 15.4 % 12.1-15.4 788-0) PLT (test code = See_Comment [Automated 777-3) message] The sy stem which generated this result transmitted reference range : 150 - 328 10*3/ ?L. The reference r meredith was not used to interpret this result as normal/abnormal . MPV (test code = 9.3 fL 9.8-13 L 32820-7) NRBC/100 WBC (test See_Comment [Automat ed code = 1932365283) message] The system which generated this result transmitted reference range : 0.0 - 10.0 /100 WBCs. The refer ence range was not u sed to interpret th is result as normal/abnormal . NRBC x10^3 (test code See_Comment [Auto mated = 9332141819) message] The s ystem which generated this result transmitted reference range : 10*3/?L. The reference range was not used to interpret this result as normal/abnormal . GRAN MAT (NEUT) % 69.3 % (test code = 770-8) IMM GRAN % (test code 0.20 % = 3678796346) LYMPH % (test code = 18.2 % 736-9) MONO % (test code = 9.9 % 5905-5) EOS % (test code = 2.0 % 713-8) BASO % (test code = 0.4 % 706-2) GRAN MAT x10^3(ANC) 3.51 10*3/uL 1.99-6.95 (test code = 8871090086) IMM GRAN x10^3 (test 0-0.06 code = 9579741049) LYMPH x10^3 (test code 0.92 10*3/uL 1.09-3.23 L = 731-0) MONO x10^3 (test code 0.50 10*3/uL 0.36-1.02 = 742-7) EOS x10^3 (test code = 0.10 10*3/uL 0.06-0.53 711-2) BASO x10^3 (test code 0.01-0.09 = 704-7) Lab Interpretation Abnormal (test code = 28757-4) [facility]. METABOLIC PANEL ([id number])2022-05-20 01:54:47 Test Item Value Reference Range Interpretation Comments NA (test code = 131 mmol/L 135-145 L 0145390852) K (test code = 4.6 mmol/L 3.5-5 4470448145) CL (test code = 102 mmol/L 98-108 6034584341) CO2 TOTAL (test code = 16 mmol/L 23-31 L 8680525959) AGAP (test code = 2-16 7670894256) BUN (test code = 46 mg/dL 7-23 H 9536347103) GLUCOSE (test code = 98 mg/dL 70-110 8132110999) CREATININE (test code = 1.88 mg/dL 0.6-1.25 H 2977226073) TOTAL BILI (test code = 0.7 mg/dL 0.1-1.9 8418537595) CALCIUM (test code = 9.1 mg/dL 8.6-10.6 9903647433) T PROTEIN (test code = 7.3 g/dL 6.3-8.2 4181688498) ALBUMIN (test code = 4.8 g/dL 3.5-5 2512846598) ALK PHOS (test code = 72 U/L 34-122 5260459841) ALTv (test code = 26 U/L 5-50 1742-6) AST(SGOT) (test code = 27 U/L 13-40 0305937199) eGFR (test code = mL/min/1.73m2 0478107824) GILBERTO (test code = GILBERTO) Association of [...] tests). Lab Interpretation Abnormal (test code = 59634-0) [facility]54[facility]47 Test Item Value Reference Range Interpretation Comments LIPASE (test code = 4492270080) 263 U/L 0-220 H Lab Interpretation (test code = Abnormal 62561-9) [facility] WITH [id number] 01:43:49 Test Item Value Reference Range Interpretation [...] RDW-SD (test code = 46.0 fL 38.5-51.6 47010-3) RDW-CV (test code = 15.4 % 12.1-15.4 788-0) PLT (test code = See_Comment H [Automated 777-3) message] The sy stem which generated this result transmitted reference range : 150 - 328 10*3/ ?L. The reference r meredith was not used to interpret this result as normal/abnormal . MPV (test code = 9.7 fL 9.8-13 L 80018-2) NRBC/100 WBC (test See_Comment [Automat ed code = 4054811609) message] The system which generated this result transmitted reference range : 0.0 - 10.0 /100 WBCs. The refer ence range was not u sed to interpret th is result as normal/abnormal . NRBC x10^3 (test code See_Comment [Auto mated = 4136121957) message] The s ystem which generated this result transmitted reference range : 10*3/?L. The reference range was not used to interpret this result as normal/abnormal . GRAN MAT (NEUT) % 64.5 % (test code = 770-8) IMM GRAN % (test code 0.40 % = 0740258243) LYMPH % (test code = 24.7 % 736-9) MONO % (test code = 9.2 % 5905-5) EOS % (test code = 0.7 % 713-8) BASO % (test code = 0.5 % 706-2) GRAN MAT x10^3(ANC) 5.20 10*3/uL 1.99-6.95 (test code = 3512117663) IMM GRAN x10^3 (test 0.03 10*3/uL 0-0.06 code = 0459300823) LYMPH x10^3 (test code 1.99 10*3/uL 1.09-3.23 = 731-0) MONO x10^3 (test code 0.74 10*3/uL 0.36-1.02 = 742-7) EOS x10^3 (test code = 0.06 10*3/uL 0.06-0.53 711-2) BASO x10^3 (test code 0.04 10*3/uL 0.01-0.09 = 704-7) Lab Interpretation Abnormal (test code = 83956-9) [facility] WITH [id number] 05:06:34 Test Item Value Reference Range Interpretation [...] (test code = 56.7 fL 38.5-51.6 H 97488-7) RDW-CV (test code = 17.4 % 12.1-15.4 H 788-0) PLT (test code = See_Comment [Automated 777-3) message] The sy stem which generated this result transmitted reference range : 150 - 328 10*3/ ?L. The reference r meredith was not used to interpret this result as normal/abnormal . MPV (test code = 9.5 fL 9.8-13 L 98877-9) NRBC/100 WBC (test See_Comment [Automat ed code = 8122842226) message] The system which generated this result transmitted reference range : 0.0 - 10.0 /100 WBCs. The refer ence range was not u sed to interpret th is result as normal/abnormal . NRBC x10^3 (test code See_Comment [Auto mated = 7801928123) message] The s ystem which generated this result transmitted reference range : 10*3/?L. The reference range was not used to interpret this result as normal/abnormal . SEG % (test code = 56 % 33-76 71426-3) LYMPH % (test code = 28 % 14-54 92526-6) MONO % (test code = 12 % 0-4 H 00424-4) EOS % (test code = 4 % 0-3 H 49244-9) ANC (test code = 4.72 10*3/uL 1.99-6.95 753-4) PLT ESTIMATE (test Normal Normal code = 9317-9) Lab Interpretation Abnormal (test code = 44711-4) [facility]. METABOLIC PANEL ([id number])2022-04-10 04:19:15 Test Item Value Reference Range Interpretation Comments NA (test code = 137 mmol/L 135-145 3757905534) K (test code = 4.6 mmol/L 3.5-5 8480508856) CL (test code = 108 mmol/L 98-108 3215795872) CO2 TOTAL (test code = 22 mmol/L 23-31 L 7244516208) AGAP (test code = 2-16 8970636537) BUN (test code = 16 mg/dL 7-23 5933914583) GLUCOSE (test code = 96 mg/dL 70-110 7310180558) CREATININE (test code = 1.35 mg/dL 0.6-1.25 H 6530956137) TOTAL BILI (test code = 0.4 mg/dL 0.1-1.5 1431709085) CALCIUM (test code = 9.1 mg/dL 8.6-10.6 1640888756) T PROTEIN (test code = 5.5 g/dL 6.3-8.2 L 0495095742) ALBUMIN (test code = 3.9 g/dL 3.5-5 4377372978) ALK PHOS (test code = 58 U/L 34-122 0641231926) ALTv (test code = 41 U/L 5-50 1742-6) AST(SGOT) (test code = 42 U/L 13-40 H 6273742638) eGFR (test code = mL/min/1.73m2 0944723163) GILBERTO (test code = GILBERTO) Association of [...] tests). Lab Interpretation Abnormal (test code = 73211-8) [facility]:31 Test Item Value Reference Range Interpretation Comments LIPASE (test code = 1036408692) 90 U/L 0-220 Lab Interpretation (test code = Normal 07413-2) [facility] 12:00:33 Test Item Value Reference Range Interpretation Comments MAGNESIUM (test code = 1736871512) 1.5 mg/dL 1.7-2.4 L Lab Interpretation (test code = Abnormal 40583-5) [facility] (NA, K, CL, CO2, GLUCOSE, BUN, CREATININE, CA)2022-04-08 11:12:32 Test Item Value Reference Range Interpretation Comments NA (test code = 136 mmol/L 135-145 9238077487) K (test code = 4.1 mmol/L 3.5-5 5490153325) CL (test code = 108 mmol/L 98-108 8402163650) CO2 TOTAL (test code = 25 mmol/L 23-31 8961045430) AGAP (test code = 2-16 3294239671) BUN (test code = 10 mg/dL 7-23 6777725545) GLUCOSE (test code = 82 mg/dL 70-110 9290758964) CREATININE (test code = 1.10 mg/dL 0.6-1.25 4260524320) CALCIUM (test code = 8.3 mg/dL 8.6-10.6 L 7880605847) eGFR (test code = mL/min/1.73m2 0455413653) GILBERTO (test code = GILBERTO) Association of [...] tests). Lab Interpretation Abnormal (test code = 84102-4) [facility] 11:12:32 Test Item Value Reference Range Interpretation Comments PHOSPHORUS (test code = 4297654788) 2.5 mg/dL 2.5-5 Lab Interpretation (test code = Normal 22744-2) [facility] WITH [id number] 10:47:27 Test Item Value Reference Range Interpretation [...] (test code = 54.4 fL 38.5-51.6 H 95118-9) RDW-CV (test code = 16.9 % 12.1-15.4 H 788-0) PLT (test code = See_Comment [Automated 777-3) message] The sy stem which generated this result transmitted reference range : 150 - 328 10*3/ ?L. The reference r meredith was not used to interpret this result as normal/abnormal . MPV (test code = 9.7 fL 9.8-13 L 11715-3) NRBC/100 WBC (test See_Comment [Automat ed code = 2409411520) message] The system which generated this result transmitted reference range : 0.0 - 10.0 /100 WBCs. The refer ence range was not u sed to interpret th is result as normal/abnormal . NRBC x10^3 (test code See_Comment [Auto mated = 6226075272) message] The s ystem which generated this result transmitted reference range : 10*3/?L. The reference range was not used to interpret this result as normal/abnormal . GRAN MAT (NEUT) % 54.7 % (test code = 770-8) IMM GRAN % (test code 0.40 % = 3277703435) LYMPH % (test code = 33.8 % 736-9) MONO % (test code = 8.7 % 5905-5) EOS % (test code = 2.0 % 713-8) BASO % (test code = 0.4 % 706-2) GRAN MAT x10^3(ANC) 2.95 10*3/uL 1.99-6.95 (test code = 4613711761) IMM GRAN x10^3 (test 0-0.06 code = 6451091213) LYMPH x10^3 (test code 1.82 10*3/uL 1.09-3.23 = 731-0) MONO x10^3 (test code 0.47 10*3/uL 0.36-1.02 = 742-7) EOS x10^3 (test code = 0.11 10*3/uL 0.06-0.53 711-2) BASO x10^3 (test code 0.01-0.09 = 704-7) Lab Interpretation Abnormal (test code = 77841-5) [facility] METABOLIC PANEL (NA, K, CL, CO2, GLUCOSE, BUN, CREATININE, CA)2022-04-06 09:47:17 Test Item Value Reference Range Interpretation Comments NA (test code = 134 mmol/L 135-145 L 1169126490) K (test code = 4.2 mmol/L 3.5-5 Slight 9785658493) hemolysis CL (test code = 114 mmol/L 98-108 H 6722898934) CO2 TOTAL (test code 16 mmol/L 23-31 L = 9807809971) AGAP (test code = 2-16 0493461518) BUN (test code = 16 mg/dL 7-23 Slight 8714687890) hemolysis GLUCOSE (test code = 79 mg/dL 70-110 8199562207) CREATININE (test code 1.00 mg/dL 0.6-1.25 = 7829721221) CALCIUM (test code = 7.5 mg/dL 8.6-10.6 L 6427931307) eGFR (test code = mL/min/1.73m2 8615169709) GILBERTO (test code = GILBERTO) Association of [...] tests). Lab Interpretation Abnormal (test code = 97134-0) [facility] 09:47:17 Test Item Value Reference Range Interpretation Comments MAGNESIUM (test code = 3588688799) 1.2 mg/dL 1.7-2.4 L Lab Interpretation (test code = Abnormal 57329-5) [facility] CenterL[facility] Acid Whole [id number] 09:16:49 Test Item Value Reference Range Interpretation Comments LACTIC ACID (test code = 1.35 mmol/L 0.5-2.2 0218938967) Lab Interpretation (test code = Normal 90033-5) [facility] [id number] 09:13:32 Test Item Value Reference Range Interpretation [...] (test code = 52.4 fL 38.5-51.6 H 77929-9) RDW-CV (test code = 16.6 % 12.1-15.4 H 788-0) PLT (test code = See_Comment [Automated 777-3) message] The sy stem which generated this result transmitted reference range : 150 - 328 10*3/ ?L. The reference r meredith was not used to interpret this result as normal/abnormal . MPV (test code = 10.0 fL 9.8-13 51154-9) NRBC/100 WBC (test See_Comment [Automat ed code = 2159722915) message] The system which generated this result transmitted reference range : 0.0 - 10.0 /100 WBCs. The refer ence range was not u sed to interpret th is result as normal/abnormal . NRBC x10^3 (test code See_Comment [Auto mated = 9261111945) message] The s ystem which generated this result transmitted reference range : 10*3/?L. The reference range was not used to interpret this result as normal/abnormal . GRAN MAT (NEUT) % 48.6 % (test code = 770-8) IMM GRAN % (test code 0.20 % = 6587466511) LYMPH % (test code = 39.4 % 736-9) MONO % (test code = 9.3 % 5905-5) EOS % (test code = 1.9 % 713-8) BASO % (test code = 0.6 % 706-2) GRAN MAT x10^3(ANC) 2.36 10*3/uL 1.99-6.95 (test code = 4516653065) IMM GRAN x10^3 (test 0-0.06 code = 2890365459) LYMPH x10^3 (test code 1.91 10*3/uL 1.09-3.23 = 731-0) MONO x10^3 (test code 0.45 10*3/uL 0.36-1.02 = 742-7) EOS x10^3 (test code = 0.09 10*3/uL 0.06-0.53 711-2) BASO x10^3 (test code 0.03 10*3/uL 0.01-0.09 = 704-7) Lab Interpretation Abnormal (test code = 29137-8) [facility] 07:34:48 Test Item Value Reference Range Interpretation Comments MAGNESIUM (test code = 3928137118) 1.8 mg/dL 1.7-2.4 Lab Interpretation (test code = Normal 58420-4) [facility] [id number] 18:40:18 Test Item Value Reference Range Interpretation Comments PH (test code = 7.32-7.42 L 3916725901) PCO2 PANKAJ (test code = See_Comment [Auto mated message] 3846696588) The system [employer] generated this result transmitted ref erence range: 41 - 51 mmHg. The reference r meredith was not used to interpret this result as normal/abnor mal. PO2 PANKAJ (test code = See_Comment L [Autom ated message] 9418128493) The system [employer] generated this result transmitted ref erence range: 25 - 40 mmHg. The reference r meredith was not used to interpret this result as normal/abnor mal. HCO3 PANKAJ (test code = See_Comment L [Auto mated message] 0609697402) The system [employer] generated this result transmitted ref erence range: 24 - 28 mEq/L. The reference r meredith was not used to interpret this result as normal/abnor mal. AC VBE(BEAKER) (test mEq/L code = 6720927230) Lab Interpretation (test Abnormal code = 71508-4) [facility] METABOLIC PANEL (NA, K, CL, CO2, GLUCOSE, BUN, CREATININE, CA)2022-04-03 18:33:26 Test Item Value Reference Range Interpretation Comments NA (test code = 129 mmol/L 135-145 L 0568038832) K (test code = 3.3 mmol/L 3.5-5 L 9381563891) CL (test code = 100 mmol/L 98-108 8382913652) CO2 TOTAL (test code = 19 mmol/L 23-31 L 1039499397) AGAP (test code = 2-16 6275638879) BUN (test code = 49 mg/dL 7-23 H 1486028212) GLUCOSE (test code = 75 mg/dL 70-110 2558714567) CREATININE (test code = 2.55 mg/dL 0.6-1.25 H 5971606316) CALCIUM (test code = 8.6 mg/dL 8.6-10.6 4835487573) eGFR (test code = mL/min/1.73m2 4693977363) GILBERTO (test code = GILBERTO) Association of [...] tests). Lab Interpretation Abnormal (test code = 63901-6) [facility] CenterOSMOLALITY, SERUM OR [id number] 15:45:31 Test Item Value Reference Range Interpretation Comments OSMOLALITY (test code = See_Comment [Au tomated message] 0882-2) The system [employer] generated this result transmitted ref erence range: 278 - 30 5 mOsm/kg. The re ference range was not u sed to interpret this result as normal/abnor mal. Lab Interpretation (test Normal code = 32141-8) [facility] with [id number] 11:27:34 Test Item Value Reference Range Interpretation [...] RDW-SD (test code = 48.7 fL 38.5-51.6 13293-9) RDW-CV (test code = 15.9 % 12.1-15.4 H 788-0) PLT (test code = See_Comment [Automated 777-3) message] The sy stem which generated this result transmitted reference range : 150 - 328 10*3/ ?L. The reference r meredith was not used to interpret this result as normal/abnormal . MPV (test code = 9.4 fL 9.8-13 L 12356-9) NRBC/100 WBC (test See_Comment [Automat ed code = 8064306131) message] The system which generated this result transmitted reference range : 0.0 - 10.0 /100 WBCs. The refer ence range was not u sed to interpret th is result as normal/abnormal . NRBC x10^3 (test code See_Comment [Auto mated = 4817982812) message] The s ystem which generated this result transmitted reference range : 10*3/?L. The reference range was not used to interpret this result as normal/abnormal . GRAN MAT (NEUT) % 56.0 % (test code = 770-8) IMM GRAN % (test code 0.50 % = 3837484607) LYMPH % (test code = 33.2 % 736-9) MONO % (test code = 8.6 % 5905-5) EOS % (test code = 1.1 % 713-8) BASO % (test code = 0.6 % 706-2) GRAN MAT x10^3(ANC) 3.64 10*3/uL 1.99-6.95 (test code = 4525823572) IMM GRAN x10^3 (test 0.03 10*3/uL 0-0.06 code = 0693367983) LYMPH x10^3 (test code 2.16 10*3/uL 1.09-3.23 = 731-0) MONO x10^3 (test code 0.56 10*3/uL 0.36-1.02 = 742-7) EOS x10^3 (test code = 0.07 10*3/uL 0.06-0.53 711-2) BASO x10^3 (test code 0.04 10*3/uL 0.01-0.09 = 704-7) Lab Interpretation Abnormal (test code = 23420-9) [facility] Metabolic Panel (NA, K, CL, CO2, GLUCOSE, BUN, CREATININE, CA)2022-04-03 10:08:59 Test Item Value Reference Range Interpretation Comments NA (test code = 125 mmol/L 135-145 L 8283224151) K (test code = 3.7 mmol/L 3.5-5 6747971469) CL (test code = 96 mmol/L 98-108 L 7421922715) CO2 TOTAL (test code = 15 mmol/L 23-31 L 2427308450) AGAP (test code = 2-16 1774196146) BUN (test code = 50 mg/dL 7-23 H 8815344003) GLUCOSE (test code = 86 mg/dL 70-110 3623614976) CREATININE (test code = 3.86 mg/dL 0.6-1.25 H 4280038560) CALCIUM (test code = 8.6 mg/dL 8.6-10.6 2593991754) eGFR (test code = mL/min/1.73m2 3839889520) GILBERTO (test code = GILBERTO) Association of [...] tests). Lab Interpretation Abnormal (test code = 63149-0) [facility] [id number] 04:09:02 Test Item Value Reference Range Interpretation Comments LACTIC ACID (test code = 1.54 mmol/L 0.5-2.2 1847208540) Lab Interpretation (test code = Normal 59368-0) [facility] [id number] 00:25:08 Test Item Value Reference Range Interpretation Comments LACTIC ACID (test code = 2.50 mmol/L 0.5-2.2 H 4457870621) Lab Interpretation (test code = Abnormal 88236-2) [facility] WITH [id number] 20:19:45 Test Item Value Reference Range Interpretation [...] RDW-SD (test code = 49.8 fL 38.5-51.6 47625-8) RDW-CV (test code = 16.4 % 12.1-15.4 H 788-0) PLT (test code = See_Comment H [Automated 777-3) message] The system which generated this result transmit dain reference range : 150 - 328 10*3/ ?L. The reference range was not u sed to interpret th is result as normal/abnormal . MPV (test code = 10.7 fL 9.8-13 61500-5) NRBC/100 WBC (test See_Comment [Automat ed code = 7856781415) message] The system which generated this result transmit dain reference range : 0.0 - 10.0 /100 WBCs. The reference range was not used to interpret this result as normal/abnormal . NRBC x10^3 (test code See_Comment [Auto mated = [id number]) message] The system which generated this result transmit dain reference range : 10*3/?L. The reference range was not used to interpret this result as normal/abnormal . GRAN MAT (NEUT) % 73.4 % (test code = 770-8) IMM GRAN % (test code 0.60 % = 8293966342) LYMPH % (test code = 17.2 % 736-9) MONO % (test code = 8.2 % 5905-5) EOS % (test code = 0.2 % 713-8) BASO % (test code = 0.4 % 706-2) GRAN MAT x10^3(ANC) 10.17 10*3/uL 1.99-6.95 H (test code = 6641147282) IMM GRAN x10^3 (test 0.09 10*3/uL 0-0.06 H code = 9160679403) LYMPH x10^3 (test code 2.38 10*3/uL 1.09-3.23 = 731-0) MONO x10^3 (test code 1.13 10*3/uL 0.36-1.02 H = 742-7) EOS x10^3 (test code = 0.03 10*3/uL 0.06-0.53 L 711-2) BASO x10^3 (test code 0.05 10*3/uL 0.01-0.09 = 704-7) Lab Interpretation Abnormal (test code = 24103-5) [facility] W/AUTO [id number] 00:06:00 Test Item Value Reference Range Interpretation [...] = MX#) 0.5 k/mm3 0.1-0.8 N TROPONIN-I [id number] 15:07:00 Test Item Value Reference Range Interpretation Comments TROPONIN-I RAPID 0.00 ng/mL 0.00-0.08 N Performed b y certified (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 BASIC METABOLIC [id number] 14:56:00 Test Item Value Reference Range Interpretation [...] MG/DL 70-110 N - XR CHEST 1 [id number] 00:00:00 [facility] 1970 Sex: M FAX: Sabi Urias MD [phone] [place]: [address] St: REG Name: HOANG MCNEILL FSED : 1970 Age/S: 52/M [address] [facility] Unit #: [id number] Loc: [place] [address] Phys: Sabi Urias MD Acct: [id number] Dis Date: Status: REG ER PHONE #: Exam Date: 03/29/2022 1501 FAX #: Reason: Weakness EXAMS: CPT CODE: [id number] XR CHEST 1 V 34383 PROCEDURE INFORMATION: Exam: XR Chest Exam date [...] 03/29/2022 (1531) PAGE 1 Signed ReportHEPATIC FUNCTION [id number] 06:45:03 Test Item Value Reference Range Interpretation [...] (test code = 13 U/L 6-55 347) Financial Underwriter ID - ERWIN WBASIC METABOLIC [id number] 06:45:02 Test Item Value Reference Range Interpretation [...] S NOT APPLICABLE FOR DIALYSIS PATIEN TS. Financial Underwriter ID - ERWIN WCBC W/PLT COUNT & AUTO [id number] 06:26:54 Test Item Value Reference Range Interpretation [...] (BEAKER) (test code = 2801) U/S, RENAL, [id number] 19:23:00Reason for exam:->[facility] 1970 Sex: MFINAL [...] SARS-Co V-2 (test code = target nucleic 89078-4) acids are not detected in thi s [...] revoked sooner. Fact Sheet for Healthcare Providers: https://www.[employer]/Documents/Xp ert%20Xpress%20SAR S%20CoV-2/Fact%20S heets/302-3802%20S ARS-COV-2%20HEALTH CARE%20PROVIDERS%2 0FACT%20SHEET.pdf Fact Sheet for Healthcare Patients: https://www.[employer]/Documents/Xp ert%20Xpress%20SAR S%20CoV-2/Fact%20S heets/3023801%20S ARS-COV-2%20PATIEN T%20FACT%20SHEET.p df Lab Interpretation Normal (test code = 83057-6) [facility] 19:17:07 Test Item Value Reference Interpretation Comments Range SARS-COV2/RT-PCR Negative Negative The SARS-Co V-2 (test code = target nucleic 31616-4) acids are not detected in thi s [...] revoked sooner. Fact Sheet for Healthcare Providers: https://www.[employer]/Documents/Xp ert%20Xpress%20SAR S%20CoV-2/Fact%20S heets/3023802%20S ARS-COV-2%20HEALTH CARE%20PROVIDERS%2 0FACT%20SHEET.pdf Fact Sheet for Healthcare Patients: https://www.[employer]/Documents/Xp ert%20Xpress%20SAR S%20CoV-2/Fact%20S heets/302-3801%20S ARS-COV-2%20PATIEN T%20FACT%20SHEET.p df Lab Interpretation Normal (test code = 48573-3) [facility]2022-03-06 19:17:07 Test Item Value Reference Interpretation Comments Range SARS-COV2/RT-PCR Negative Negative The SARS-Co V-2 (test code = target nucleic 53206-0) acids are not detected in thi s [...] revoked sooner. Fact Sheet for Healthcare Providers: https://www.[employer]/Documents/Xp ert%20Xpress%20SAR S%20CoV-2/Fact%20S heets/302-3802%20S ARS-COV-2%20HEALTH CARE%20PROVIDERS%2 0FACT%20SHEET.pdf Fact Sheet for Healthcare Patients: https://www.[employer]/Documents/Xp ert%20Xpress%20SAR S%20CoV-2/Fact%20S heets/302-3801%20S ARS-COV-2%20PATIEN T%20FACT%20SHEET.p df Lab Interpretation Normal (test code = 52812-8) [facility]2022-03-06 19:17:07 Test Item Value Reference Interpretation Comments Range SARS-COV2/RT-PCR Negative Negative The SARS-Co V-2 (test code = target nucleic 89521-2) acids are not detected in thi s [...] revoked sooner. Fact Sheet for Healthcare Providers: https://www.[employer]/Documents/Xp ert%20Xpress%20SAR S%20CoV-2/Fact%20S heets/302-3802%20S ARS-COV-2%20HEALTH CARE%20PROVIDERS%2 0FACT%20SHEET.pdf Fact Sheet for Healthcare Patients: https://www.[employer]/Documents/Xp ert%20Xpress%20SAR S%20CoV-2/Fact%20S heets/302-3801%20S ARS-COV-2%20PATIEN T%20FACT%20SHEET.p df Lab Interpretation Normal (test code = 44782-6) [facility]2022-03-06 19:17:07 Test Item Value Reference Interpretation Comments Range SARS-COV2/RT-PCR Negative Negative The SARS-Co V-2 (test code = target nucleic 73635-3) acids are not detected in thi s [...] revoked sooner. Fact Sheet for Healthcare Providers: https://www.[employer]/Documents/Xp ert%20Xpress%20SAR S%20CoV-2/Fact%20S heets/302-4332%20S ARS-COV-2%20HEALTH CARE%20PROVIDERS%2 0FACT%20SHEET.pdf Fact Sheet for Healthcare Patients: https://www.[employer]/Documents/Xp ert%20Xpress%20SAR S%20CoV-2/Fact%20S heets/302-3241%20S ARS-COV-2%20PATIEN T%20FACT%20SHEET.p df Lab Interpretation Normal (test code = 61602-4) [facility]2022-03-06 19:17:07 Test Item Value Reference Interpretation Comments Range SARS-COV2/RT-PCR Negative Negative The SARS-Co V-2 (test code = target nucleic 94936-5) acids are not detected in thi s [...] revoked sooner. Fact Sheet for Healthcare Providers: https://www.[employer]/Documents/Xp ert%20Xpress%20SAR S%20CoV-2/Fact%20S heets/302-3802%20S ARS-COV-2%20HEALTH CARE%20PROVIDERS%2 0FACT%20SHEET.pdf Fact Sheet for Healthcare Patients: https://www.[employer]/Documents/Xp ert%20Xpress%20SAR S%20CoV-2/Fact%20S heets/302-3801%20S ARS-COV-2%20PATIEN T%20FACT%20SHEET.p df Lab Interpretation Normal (test code = 89554-7) [facility]2022-03-06 19:17:07 Test Item Value Reference Interpretation Comments Range SARS-COV2/RT-PCR Negative Negative The SARS-Co V-2 (test code = target nucleic 51081-1) acids are not detected in thi s [...] revoked sooner. Fact Sheet for Healthcare Providers: https://www.[employer]/Documents/Xp ert%20Xpress%20SAR S%20CoV-2/Fact%20S heets/302-3802%20S ARS-COV-2%20HEALTH CARE%20PROVIDERS%2 0FACT%20SHEET.pdf Fact Sheet for Healthcare Patients: https://www.[employer]/Documents/Xp ert%20Xpress%20SAR S%20CoV-2/Fact%20S heets/302-3801%20S ARS-COV-2%20PATIEN T%20FACT%20SHEET.p df Lab Interpretation Normal (test code = 20474-2) [facility]2022-03-06 19:17:07 Test Item Value Reference Interpretation Comments Range SARS-COV2/RT-PCR Negative Negative The SARS-Co V-2 (test code = target nucleic 43009-6) acids are not detected in thi s [...] revoked sooner. Fact Sheet for Healthcare Providers: https://www.[employer]/Documents/Xp ert%20Xpress%20SAR S%20CoV-2/Fact%20S heets/302-3802%20S ARS-COV-2%20HEALTH CARE%20PROVIDERS%2 0FACT%20SHEET.pdf Fact Sheet for Healthcare Patients: https://www.[employer]/Documents/Xp ert%20Xpress%20SAR S%20CoV-2/Fact%20S heets/302-3801%20S ARS-COV-2%20PATIEN T%20FACT%20SHEET.p df Lab Interpretation Normal (test code = 39214-8) [facility]2022-03-06 19:17:07 Test Item Value Reference Interpretation Comments Range SARS-COV2/RT-PCR Negative Negative The SARS-Co V-2 (test code = target nucleic 01950-9) acids are not detected in thi s [...] revoked sooner. Fact Sheet for Healthcare Providers: https://www.[employer]/Documents/Xp ert%20Xpress%20SAR S%20CoV-2/Fact%20S heets/302-3802%20S ARS-COV-2%20HEALTH CARE%20PROVIDERS%2 0FACT%20SHEET.pdf Fact Sheet for Healthcare Patients: https://www.[employer]/Documents/Xp ert%20Xpress%20SAR S%20CoV-2/Fact%20S heets/302-3801%20S ARS-COV-2%20PATIEN T%20FACT%20SHEET.p df Lab Interpretation Normal (test code = 61690-9) [facility]2022-03-06 19:17:07 Test Item Value Reference Interpretation Comments Range SARS-COV2/RT-PCR Negative Negative The SARS-Co V-2 (test code = target nucleic 41305-9) acids are not detected in thi s [...] om SARS-CoV-2 in a nasopharyngeal swab specimen [facility] from individual s suspected of COVID-19 [...] revoked sooner. Fact Sheet for Healthcare Providers: https://www.[employer]/Documents/Xp ert%20Xpress%20SAR S%20CoV-2/Fact%20S heets/302-3802%20S ARS-COV-2%20HEALTH CARE%20PROVIDERS%2 0FACT%20SHEET.pdf Fact Sheet for Healthcare Patients: https://www.[employer]/Documents/Xp ert%20Xpress%20SAR S%20CoV-2/Fact%20S heets/302-3801%20S ARS-COV-2%20PATIEN T%20FACT%20SHEET.p df Lab Interpretation Normal (test code = 82860-4) [facility]2022-03-06 19:17:07 Test Item Value Reference Interpretation Comments Range SARS-COV2/RT-PCR Negative Negative The SARS-Co V-2 (test code = target nucleic 75091-5) acids are not detected in thi s [...] revoked sooner. Fact Sheet for Healthcare Providers: https://www.[employer]/Documents/Xp ert%20Xpress%20SAR S%20CoV-2/Fact%20S heets/302-3802%20S ARS-COV-2%20HEALTH CARE%20PROVIDERS%2 0FACT%20SHEET.pdf Fact Sheet for Healthcare Patients: https://www.[employer]/Documents/Xp ert%20Xpress%20SAR S%20CoV-2/Fact%20S heets/302-3801%20S ARS-COV-2%20PATIEN T%20FACT%20SHEET.p df Lab Interpretation Normal (test code = 69158-7) [facility]2022-03-06 19:17:07 Test Item Value Reference Interpretation Comments Range SARS-COV2/RT-PCR Negative Negative The SARS-Co V-2 (test code = target nucleic 04695-2) acids are not detected in thi s [...] revoked sooner. Fact Sheet for Healthcare Providers: https://www.[employer]/Documents/Xp ert%20Xpress%20SAR S%20CoV-2/Fact%20S heets/302-3802%20S ARS-COV-2%20HEALTH CARE%20PROVIDERS%2 0FACT%20SHEET.pdf Fact Sheet for Healthcare Patients: https://www.[employer]/Documents/Xp ert%20Xpress%20SAR S%20CoV-2/Fact%20S heets/302-3801%20S ARS-COV-2%20PATIEN T%20FACT%20SHEET.p df Lab Interpretation Normal (test code = 18782-8) [facility]2022-03-06 19:17:07 Test Item Value Reference Interpretation Comments Range SARS-COV2/RT-PCR Negative Negative The SARS-Co V-2 (test code = target nucleic 33615-9) acids are not detected in thi s [...] revoked sooner. Fact Sheet for Healthcare Providers: https://www.[employer]/Documents/Xp ert%20Xpress%20SAR S%20CoV-2/Fact%20S heets/302-3802%20S ARS-COV-2%20HEALTH CARE%20PROVIDERS%2 0FACT%20SHEET.pdf Fact Sheet for Healthcare Patients: https://wwwSoftTech Engineers/Documents/Xp ert%20Xpress%20SAR S%20CoV-2/Fact%20S heets/302-3801%20S ARS-COV-2%20PATIEN T%20FACT%20SHEET.p df Lab Interpretation Normal (test code = 23987-6) [facility]2022-03-06 19:17:07 Test Item Value Reference Interpretation Comments Range SARS-COV2/RT-PCR Negative Negative The SARS-Co V-2 (test code = target nucleic 99619-3) acids are not detected in thi s [...] revoked sooner. Fact Sheet for Healthcare Providers: https://www.[employer]/Documents/Xp ert%20Xpress%20SAR S%20CoV-2/Fact%20S heets/302-3802%20S ARS-COV-2%20HEALTH CARE%20PROVIDERS%2 0FACT%20SHEET.pdf Fact Sheet for Healthcare Patients: https://www.[employer]/Documents/Xp ert%20Xpress%20SAR S%20CoV-2/Fact%20S heets/302-3801%20S ARS-COV-2%20PATIEN T%20FACT%20SHEET.p df Lab Interpretation Normal (test code = 06580-2) [facility]2022-03-06 19:17:07 Test Item Value Reference Interpretation Comments Range SARS-COV2/RT-PCR Negative Negative The SARS-Co V-2 (test code = target nucleic 53540-0) acids are not detected in thi s [...] revoked sooner. Fact Sheet for Healthcare Providers: https://www.[employer]/Documents/Xp ert%20Xpress%20SAR S%20CoV-2/Fact%20S heets/302-3802%20S ARS-COV-2%20HEALTH CARE%20PROVIDERS%2 0FACT%20SHEET.pdf Fact Sheet for Healthcare Patients: https://www.[employer]/Documents/Xp ert%20Xpress%20SAR S%20CoV-2/Fact%20S heets/302-3801%20S ARS-COV-2%20PATIEN T%20FACT%20SHEET.p df Lab Interpretation Normal (test code = 10877-5) [facility]2022-03-06 19:17:07 Test Item Value Reference Interpretation Comments Range SARS-COV2/RT-PCR Negative Negative The SARS-Co V-2 (test code = target nucleic 38498-2) acids are not detected in thi s [...] revoked sooner. Fact Sheet for Healthcare Providers: https://www.[employer]/Documents/Xp ert%20Xpress%20SAR S%20CoV-2/Fact%20S heets/302-3802%20S ARS-COV-2%20HEALTH CARE%20PROVIDERS%2 0FACT%20SHEET.pdf Fact Sheet for Healthcare Patients: https://www.[employer]/Documents/Xp ert%20Xpress%20SAR S%20CoV-2/Fact%20S heets/302-3801%20S ARS-COV-2%20PATIEN T%20FACT%20SHEET.p df Lab Interpretation Normal (test code = 10580-7) [facility]2022-03-06 19:17:07 Test Item Value Reference Interpretation Comments Range SARS-COV2/RT-PCR Negative Negative The SARS-Co V-2 (test code = target nucleic 30599-4) acids are not detected in thi s [...] revoked sooner. Fact Sheet for Healthcare Providers: https://www.[employer]/Documents/Xp ert%20Xpress%20SAR S%20CoV-2/Fact%20S heets/302-3802%20S ARS-COV-2%20HEALTH CARE%20PROVIDERS%2 0FACT%20SHEET.pdf Fact Sheet for Healthcare Patients: https://www.[employer]/Documents/Xp ert%20Xpress%20SAR S%20CoV-2/Fact%20S heets/302-3801%20S ARS-COV-2%20PATIEN T%20FACT%20SHEET.p df Lab Interpretation Normal (test code = 16908-0) [facility]2022-03-06 19:17:07 Test Item Value Reference Interpretation Comments Range SARS-COV2/RT-PCR Negative Negative The SARS-Co V-2 (test code = target nucleic 42740-4) acids are not detected in thi s [...] revoked sooner. Fact Sheet for Healthcare Providers: https://www.[employer]/Documents/Xp ert%20Xpress%20SAR S%20CoV-2/Fact%20S heets/302-3802%20S ARS-COV-2%20HEALTH CARE%20PROVIDERS%2 0FACT%20SHEET.pdf Fact Sheet for Healthcare Patients: https://www.[employer]/Documents/Xp ert%20Xpress%20SAR S%20CoV-2/Fact%20S heets/302-3801%20S ARS-COV-2%20PATIEN T%20FACT%20SHEET.p df Lab Interpretation Normal (test code = 41541-0) [facility] 19:17:07 Test Item Value Reference Interpretation Comments Range SARS-COV2/RT-PCR Negative Negative The SARS-Co V-2 (test code = target nucleic 86944-6) acids are not detected in thi s [...] revoked sooner. Fact Sheet for Healthcare Providers: https://www.[employer]/Documents/Xp ert%20Xpress%20SAR S%20CoV-2/Fact%20S heets/302-3802%20S ARS-COV-2%20HEALTH CARE%20PROVIDERS%2 0FACT%20SHEET.pdf Fact Sheet for Healthcare Patients: https://www.[employer]/Documents/Xp ert%20Xpress%20SAR S%20CoV-2/Fact%20S heets/302-3801%20S ARS-COV-2%20PATIEN T%20FACT%20SHEET.p df Lab Interpretation Normal (test code = 48386-4) [facility]2022-03-06 19:17:07 Test Item Value Reference Interpretation Comments Range SARS-COV2/RT-PCR Negative Negative The SARS-Co V-2 (test code = target nucleic 87907-9) acids are not detected in thi s [...] revoked sooner. Fact Sheet for Healthcare Providers: https://www.[employer]/Documents/Xp ert%20Xpress%20SAR S%20CoV-2/Fact%20S heets/3023802%20S ARS-COV-2%20HEALTH CARE%20PROVIDERS%2 0FACT%20SHEET.pdf Fact Sheet for Healthcare Patients: https://www.[employer]/Documents/Xp ert%20Xpress%20SAR S%20CoV-2/Fact%20S heets/302-3801%20S ARS-COV-2%20PATIEN T%20FACT%20SHEET.p df Lab Interpretation Normal (test code = 19183-0) [facility]2022-03-06 19:17:07 Test Item Value Reference Interpretation Comments Range SARS-COV2/RT-PCR Negative Negative The SARS-Co V-2 (test code = target nucleic 81770-8) acids are not detected in thi s [...] revoked sooner. Fact Sheet for Healthcare Providers: https://www.[employer]/Documents/Xp ert%20Xpress%20SAR S%20CoV-2/Fact%20S heets/302-3802%20S ARS-COV-2%20HEALTH CARE%20PROVIDERS%2 0FACT%20SHEET.pdf Fact Sheet for Healthcare Patients: https://www.[employer]/Documents/Xp ert%20Xpress%20SAR S%20CoV-2/Fact%20S heets/302-3801%20S ARS-COV-2%20PATIEN T%20FACT%20SHEET.p df Lab Interpretation Normal (test code = 60983-5) [facility]2022-03-06 19:17:07 Test Item Value Reference Interpretation Comments Range SARS-COV2/RT-PCR Negative Negative The SARS-Co V-2 (test code = target nucleic 60530-7) acids are not detected in thi s [...] revoked sooner. Fact Sheet for Healthcare Providers: https://www.[employer]/Documents/Xp ert%20Xpress%20SAR S%20CoV-2/Fact%20S heets/302-3802%20S ARS-COV-2%20HEALTH CARE%20PROVIDERS%2 0FACT%20SHEET.pdf Fact Sheet for Healthcare Patients: https://www.[employer]/Documents/Xp ert%20Xpress%20SAR S%20CoV-2/Fact%20S heets/302-3801%20S ARS-COV-2%20PATIEN T%20FACT%20SHEET.p df Lab Interpretation Normal (test code = 18128-7) [facility]2022-03-06 19:17:07 Test Item Value Reference Interpretation Comments Range SARS-COV2/RT-PCR Negative Negative The SARS-Co V-2 (test code = target nucleic 75928-8) acids are not detected in thi s [...] revoked sooner. Fact Sheet for Healthcare Providers: https://www.[employer]/Documents/Xp ert%20Xpress%20SAR S%20CoV-2/Fact%20S heets/302-0552%20S ARS-COV-2%20HEALTH CARE%20PROVIDERS%2 0FACT%20SHEET.pdf Fact Sheet for Healthcare Patients: https://www.[employer]/Documents/Xp ert%20Xpress%20SAR S%20CoV-2/Fact%20S heets/302-9081%20S ARS-COV-2%20PATIEN T%20FACT%20SHEET.p df Lab Interpretation Normal (test code = 67456-3) [facility]2022-03-06 19:17:07 Test Item Value Reference Interpretation Comments Range SARS-COV2/RT-PCR Negative Negative The SARS-Co V-2 (test code = target nucleic 20077-7) acids are not detected in thi s [...] revoked sooner. Fact Sheet for Healthcare Providers: https://www.[employer]/Documents/Xp ert%20Xpress%20SAR S%20CoV-2/Fact%20S heets/302-3802%20S ARS-COV-2%20HEALTH CARE%20PROVIDERS%2 0FACT%20SHEET.pdf Fact Sheet for Healthcare Patients: https://www.[employer]/Documents/Xp ert%20Xpress%20SAR S%20CoV-2/Fact%20S heets/302-3801%20S ARS-COV-2%20PATIEN T%20FACT%20SHEET.p df Lab Interpretation Normal (test code = 08581-0) [facility]2022-03-06 19:17:07 Test Item Value Reference Interpretation Comments Range SARS-COV2/RT-PCR Negative Negative The SARS-Co V-2 (test code = target nucleic 86590-9) acids are not detected in thi s [...] revoked sooner. Fact Sheet for Healthcare Providers: https://www.[employer]/Documents/Xp ert%20Xpress%20SAR S%20CoV-2/Fact%20S heets/302-3802%20S ARS-COV-2%20HEALTH CARE%20PROVIDERS%2 0FACT%20SHEET.pdf Fact Sheet for Healthcare Patients: https://www.[employer]/Documents/Xp ert%20Xpress%20SAR S%20CoV-2/Fact%20S heets/302-3801%20S ARS-COV-2%20PATIEN T%20FACT%20SHEET.p df Lab Interpretation Normal (test code = 69236-6) [facility]2022-03-06 19:17:07 Test Item Value Reference Interpretation Comments Range SARS-COV2/RT-PCR Negative Negative The SARS-Co V-2 (test code = target nucleic 24182-6) acids are not detected in thi s [...] revoked sooner. Fact Sheet for Healthcare Providers: https://www.[employer]/Documents/Xp ert%20Xpress%20SAR S%20CoV-2/Fact%20S heets/302-3802%20S ARS-COV-2%20HEALTH CARE%20PROVIDERS%2 0FACT%20SHEET.pdf Fact Sheet for Healthcare Patients: https://www.[employer]/Documents/Xp ert%20Xpress%20SAR S%20CoV-2/Fact%20S heets/302-3801%20S ARS-COV-2%20PATIEN T%20FACT%20SHEET.p df Lab Interpretation Normal (test code = 04888-8) [facility])2022-03-06 19:17:07 Test Item Value Reference Range Interpretation Comments SARS-COV2/RT-PCR Negative Negative The SARS-Co V-2 target (test code = nucleic acids a re not 8378250) detected in thi s specimen. Negative result [...] revoked sooner. Fact Sheet for Healthcare Providers: https://www.[employer]/Documents/Xpert%20Xpress%20SARS%20CoV-2/Fact%20Sheets/302-3802%13NSNN-FOZ-6%20 HEALTHCARE%20PROVIDERS%20FACT%20SHEET.pdf Fact Sheet for Healthcare Patients: https://www.[employer]/Documents/Xpert%20Xp ress%20SARS%20CoV-2/Fact%20Sheets/302-3801%07APDG-IYH-4%20PATIENT%20FACT%20SHEET .pdfCREATINE KINASE (CK)2022-03-06 16:19:14 Test Item Value Reference Range Interpretation Comments CREATINE KINASE TOTAL (BEAKER) (test 141 U/L 29-200 code = 380) Financial Underwriter ID - BST4, [id number] 15:13:16 Test Item Value Reference Range Interpretation Comments FREE T4 (BEAKER) (test code = 655) 0.95 ng/dL 0.70-1.48 Financial Underwriter ID - BSTSH/FREE T4 IF [id number] 15:13:16 Test Item Value Reference Range Interpretation Comments THYROID STIMULATING HORMONE 2.060 uIU/mL 0.350-4.940 (BEAKER) (test code = 772) Financial Underwriter ID - BSB-TYPE NATRIURETIC FACTOR (BNP)2022-03-06 14:26:30 Test Item Value Reference Range Interpretation Comments B-TYPE NATRIURETIC PEPTIDE (GILMAR) < pg/mL 0-100 (test code = 700) Financial Underwriter ID - JSHIGH SENSITIVITY TROPONIN [id number] 14:14:54 Test Item Value Reference Range Interpretation Comments HIGH SENSITIVITY < pg/ml See_Comment [Automated message] TROPONIN I (test code = The system which 1886190) generated this result transmitted ref erence range: <=35. Th e reference range was not used to interpr et this result as normal/abnormal . Financial Underwriter ID - JSThe TRACK MAINTAINER STAT High Sensitivity Troponin-I results should be used in conjunctionwith other diagnostic information such as ECG, clinical observations and information, and patient symptoms to aid in the diagnosis of CO.RAD, CHEST, 1 VIEW, NON [id number] 14:10:00Reason for exam:- >NEUROLOGIC PROBLEMShould this be performed at the bedside?->Yes [facility] 1970 Sex: MFINAL REPORT Chest, 1 view, 03/06/2022 2:03 PM. History: Neurologic problem. Comparison: 03/28/2019. Discussion: The cardiomediastinal silhouette and pulmonary vasculature are within normal limits for a portable exam. The lungs are clear without evidence of consolidation or effusion. The soft tissues and osseous structures are intact. IMPRESSION: No acute cardiopulmonary abnormality. Signed: [facility] Verified Date/Time: 03/06/2022 14:10:44 REHENSIVE METABOLIC [id number] 14:08:22 Test Item Value Reference Range Interpretation [...] S NOT APPLICABLE FOR DIALYSIS PATIEN TS. Financial Underwriter ID - [id number] 14:07:49 Test Item Value Reference Range Interpretation Comments MAGNESIUM (BEAKER) (test code = 2.0 mg/dL 1.6-2.6 627) Financial Underwriter ID - [id number] 14:07:49 Test Item Value Reference Range Interpretation Comments PHOSPHORUS (BEAKER) (test code = 5.6 mg/dL 2.3-4.7 H 604) Financial Underwriter ID - JSLACTIC ACID, [id number] 13:51:04 Test Item Value Reference Range Interpretation Comments LACTATE BLOOD VENOUS 1.32 mmol/L 0.50-2.20 Specime n slightly (2) (BEAKER) (test hemolyzed code = 2873) Financial Underwriter ID - JSCBC W/PLT COUNT & AUTO [id number] 13:47:24 Test Item Value Reference Range Interpretation [...] (BEAKER) (test code = 2801) Coronavirus, CoVID-19, [id number] 01:07:20 Test Item Value Reference Range Interpretation Comments COVID-19 (SARS-COV-2) Not Detected Not Detected INTERP RETATION: No (test code = 55083-9) detect able levels of SARS-CoV-2 Coronavirus (COVID-19) [...] SARS-CoV-2 mole cular diagnostic assa y utilizes Accessibility Lift Technician Mediated Amplification ( TMA) technology to r apidly detect the SARS -CoV-2 (COVID-19) viru s from respiratory adriana ples. In accordance w ith the FDA's kamran nce document "Polic y for Diagnostic Test s for Coronavirus Disease-2019 du [facility]", thi s test was developed, and its performance characteristics were verified by the [facility] molecular diagn ostics laboratory and is authorized for clinical diagno stic use. This labor atory is certified un [place] the Clinical Laboratory Improvement Amendments (CLI A) as qualified to pe rform high complexity clinical labora tory testing. Lab Interpretation Normal (test code = 55705-2) [facility] [id number] 01:07:20 Test Item Value Reference Range Interpretation Comments COVID-19 (SARS-COV-2) Not Detected Not Detected INTERP RETATION: No (test code = 80984-7) detect able levels of SARS-CoV-2 Coronavirus (COVID-19) [...] SARS-CoV-2 mole cular diagnostic assa y utilizes Accessibility Lift Technician Mediated Amplification ( TMA) technology to r apidly detect the SARS -CoV-2 (COVID-19) viru s from respiratory adriana ples. In accordance w ith the FDA's kamran nce document "Polic y for Diagnostic Test s for Coronavirus Disease-2019 [facility]", thi s test was developed, and its performance characteristics were verified by the [facility] molecular diagn ostics laboratory and is authorized for clinical diagno stic use. This labor atory is certified un [place] the Clinical Laboratory Improvement Amendments (CLI A) as qualified to pe rform high complexity clinical labora tory testing. Lab Interpretation Normal (test code = 30151-4) [facility], [id number] 01:07:20 Test Item Value Reference Range Interpretation Comments COVID-19 (SARS-COV-2) Not Detected Not Detected INTERP RETATION: No (test code = 44682-6) detect able levels of SARS-CoV-2 Coronavirus (COVID-19) [...] SARS-CoV-2 mole cular diagnostic assa y utilizes Accessibility Lift Technician Mediated Amplification ( TMA) technology to r apidly detect the SARS -CoV-2 (COVID-19) viru s from respiratory adriana ples. In accordance w ith the FDA's kamran nce document "Polic y for Diagnostic Test s for Coronavirus Disease-2019 [facility]", thi s test was developed, and its performance characteristics were verified by the [facility] molecular diagn ostics laboratory and is authorized for clinical diagno stic use. This labor atory is certified [place] the Clinical Laboratory Improvement Amendments (CLI A) as qualified to pe rform high complexity clinical labora tory testing. Lab Interpretation Normal (test code = 12469-7) [facility], [id number] 01:07:20 Test Item Value Reference Range Interpretation Comments COVID-19 (SARS-COV-2) Not Detected Not Detected INTERP RETATION: No (test code = 92826-9) detect able levels of SARS-CoV-2 Coronavirus (COVID-19) [...] SARS-CoV-2 mole cular diagnostic assa y utilizes Accessibility Lift Technician Mediated Amplification ( TMA) technology to r apidly detect the SARS -CoV-2 (COVID-19) viru s from respiratory adriana ples. In accordance w ith the FDA's kamran nce document "Polic y for Diagnostic Test s for Coronavirus Disease-2019 [facility]", thi s test was developed, and its performance characteristics were verified by the [facility] molecular diagn ostics laboratory and is authorized for clinical diagno stic use. This labor atory is certified un [place] the Clinical Laboratory Improvement Amendments (CLI A) as qualified to pe rform high complexity clinical labora tory testing. Lab Interpretation Normal (test code = 98133-3) [facility], [id number] 01:07:20 Test Item Value Reference Range Interpretation Comments COVID-19 (SARS-COV-2) Not Detected Not Detected INTERP RETATION: No (test code = 39792-8) detect able levels of SARS-CoV-2 Coronavirus (COVID-19) [...] SARS-CoV-2 mole cular diagnostic assa y utilizes Accessibility Lift Technician Mediated Amplification ( TMA) technology to r apidly detect the SARS -CoV-2 (COVID-19) viru s from respiratory adriana ples. In accordance w ith the FDA's kamran nce document "Polic y for Diagnostic Test s for Coronavirus Disease-2019 [facility]", thi s test was developed, and its performance characteristics were verified by the [facility] molecular diagn ostics laboratory and is authorized for clinical diagno stic use. This labor atory is certified [place] the Clinical Laboratory Improvement Amendments (CLI A) as qualified to pe rform high complexity clinical labora tory testing. Lab Interpretation Normal (test code = 46648-2) [facility], CoVID-19, [id number] 01:07:20 Test Item Value Reference Range Interpretation Comments COVID-19 (SARS-COV-2) Not Detected Not Detected INTERP RETATION: No (test code = 59407-7) detect able levels of SARS-CoV-2 Coronavirus (COVID-19) [...] SARS-CoV-2 mole cular diagnostic assa y utilizes Accessibility Lift Technician Mediated Amplification ( TMA) technology to r apidly detect the SARS -CoV-2 (COVID-19) viru s from respiratory adriana ples. In accordance w ith the FDA's kamran nce document "Polic y for Diagnostic Test s for Coronavirus Disease-2019 [facility]", thi s test was developed, and its performance characteristics were verified by the [facility] molecular diagn ostics laboratory and is authorized for clinical diagno stic use. This labor atory is certified [place] the Clinical Laboratory Improvement Amendments (CLI A) as qualified to pe rform high complexity clinical labora tory testing. Lab Interpretation Normal (test code = 97201-9) [facility], CoVID-19, [id number] 01:07:20 Test Item Value Reference Range Interpretation Comments COVID-19 (SARS-COV-2) Not Detected Not Detected INTERP RETATION: No (test code = 12797-5) detect able levels of SARS-CoV-2 Coronavirus (COVID-19) [...] SARS-CoV-2 mole cular diagnostic assa y utilizes Accessibility Lift Technician Mediated Amplification ( TMA) technology to r apidly detect the SARS -CoV-2 (COVID-19) viru s from respiratory adriana ples. In accordance w ith the FDA's kamran nce document "Polic y for Diagnostic Test s for Coronavirus Disease-2018 [facility]", thi s test was developed, and its performance characteristics were verified by the [facility] molecular diagn ostics laboratory and is authorized for clinical diagno stic use. This labor atory is certified [place] the Clinical Laboratory Improvement Amendments (CLI A) as qualified to pe rform high complexity clinical labora tory testing. Lab Interpretation Normal (test code = 96530-1) [facility], [id number] 01:07:20 Test Item Value Reference Range Interpretation Comments COVID-19 (SARS-COV-2) Not Detected Not Detected INTERP RETATION: No (test code = 96729-3) detect able levels of SARS-CoV-2 Coronavirus (COVID-19) [...] SARS-CoV-2 mole cular diagnostic assa y utilizes Accessibility Lift Technician Mediated Amplification ( TMA) technology to r apidly detect the SARS -CoV-2 (COVID-19) viru s from respiratory adriana ples. In accordance w ith the FDA's kamran nce document "Polic y for Diagnostic Test s for Coronavirus Disease-2019 [facility]", thi s test was developed, and its performance characteristics were verified by the [facility] molecular diagn ostics laboratory and is authorized for clinical diagno stic use. This labor atory is certified [place] the Clinical Laboratory Improvement Amendments (CLI A) as qualified to pe rform high complexity clinical labora tory testing. Lab Interpretation Normal (test code = 91474-3) [facility], [id number] 01:07:20 Test Item Value Reference Range Interpretation Comments COVID-19 (SARS-COV-2) Not Detected Not Detected INTERP RETATION: No (test code = 92380-8) detect able levels of SARS-CoV-2 Coronavirus (COVID-19) [...] SARS-CoV-2 mole cular diagnostic assa y utilizes Accessibility Lift Technician Mediated Amplification ( TMA) technology to r apidly detect the SARS -CoV-2 (COVID-19) viru s from respiratory adriana ples. In accordance w ith the FDA's kamran nce document "Polic y for Diagnostic Test s for Coronavirus Disease-2019 [facility]", thi s test was developed, and its performance characteristics were verified by the [facility] molecular diagn ostics laboratory and is authorized for clinical diagno stic use. This labor atory is certified [place] the Clinical Laboratory Improvement Amendments (CLI A) as qualified to pe rform high complexity clinical labora tory testing. Lab Interpretation Normal (test code = 38977-9) [facility]ronavirus, CoVID-19, [id number] 01:07:20 Test Item Value Reference Range Interpretation Comments COVID-19 (SARS-COV-2) Not Detected Not Detected INTERP RETATION: No (test code = 70978-4) detect able levels of SARS-CoV-2 Coronavirus (COVID-19) [...] SARS-CoV-2 mole cular diagnostic assa y utilizes Accessibility Lift Technician Mediated Amplification ( TMA) technology to r apidly detect the SARS -CoV-2 (COVID-19) viru s from respiratory adriana ples. In accordance w ith the FDA's kamran nce document "Polic y for Diagnostic Test s for Coronavirus Disease-2019 du [facility] the [facility]", thi s test was developed, and its performance characteristics were verified by the [facility] molecular diagn ostics laboratory and is authorized for clinical diagno stic use. This labor atory is certified [place] the Clinical Laboratory Improvement Amendments (CLI A) as qualified to pe rform high complexity clinical labora tory testing. Lab Interpretation Normal (test code = 45879-5) [facility]ronavirus, CoVID-19, [id number] 01:07:20 Test Item Value Reference Range Interpretation Comments COVID-19 (SARS-COV-2) Not Detected Not Detected INTERP RETATION: No (test code = 27522-6) detect able levels of SARS-CoV-2 Coronavirus (COVID-19) [...] SARS-CoV-2 mole cular diagnostic assa y utilizes Accessibility Lift Technician Mediated Amplification ( TMA) technology to r apidly detect the SARS -CoV-2 (COVID-19) viru s from respiratory adriana ples. In accordance w ith the FDA's kamran nce document "Polic y for Diagnostic Test s for Coronavirus Disease-2019 [facility]", thi s test was developed, and its performance characteristics were verified by the [facility] molecular diagn ostics laboratory and is authorized for clinical diagno stic use. This labor atory is certified un [place] the Clinical Laboratory Improvement Amendments (CLI A) as qualified to pe rform high complexity clinical labora tory testing. Lab Interpretation Normal (test code = 00658-0) [facility], [id number] 01:07:20 Test Item Value Reference Range Interpretation Comments COVID-19 (SARS-COV-2) Not Detected Not Detected INTERP RETATION: No (test code = 80250-1) detect able levels of SARS-CoV-2 Coronavirus (COVID-19) [...] SARS-CoV-2 mole cular diagnostic assa y utilizes Accessibility Lift Technician Mediated Amplification ( TMA) technology to r apidly detect the SARS -CoV-2 (COVID-19) viru s from respiratory adriana ples. In accordance w ith the FDA's kamran nce document "Polic y for Diagnostic Test s for Coronavirus Disease-2019 du [facility] the [facility] th Emergency", thi s test was developed, and its performance characteristics were verified by the [facility] molecular diagn ostics laboratory and is authorized for clinical diagno stic use. This labor atory is certified un [place] the Clinical Laboratory Improvement Amendments (CLI A) as qualified to pe rform high complexity clinical labora tory testing. Lab Interpretation Normal (test code = 39507-3) [facility], [id number] 01:07:20 Test Item Value Reference Range Interpretation Comments COVID-19 (SARS-COV-2) Not Detected Not Detected INTERP RETATION: No (test code = 66432-7) detect able levels of SARS-CoV-2 Coronavirus (COVID-19) [...] SARS-CoV-2 mole cular diagnostic assa y utilizes Accessibility Lift Technician Mediated Amplification ( TMA) technology to r apidly detect the SARS -CoV-2 (COVID-19) viru s from respiratory adriana ples. In accordance w ith the FDA's kamran nce document "Polic y for Diagnostic Test s for Coronavirus Disease-2019 du [place] the [facility] th Emergency", thi s test was developed, and its performance characteristics were verified by the [facility] molecular diagn ostics laboratory and is authorized for clinical diagno stic use. This labor atory is certified un [place] the Clinical Laboratory Improvement Amendments (CLI A) as qualified to pe rform high complexity clinical labora tory testing. Lab Interpretation Normal (test code = 56394-3) [facility]ronavirus, CoVID-19, [id number] 01:07:20 Test Item Value Reference Range Interpretation Comments COVID-19 (SARS-COV-2) Not Detected Not Detected INTERP RETATION: No (test code = 97895-8) detect able levels of SARS-CoV-2 Coronavirus (COVID-19) [...] SARS-CoV-2 mole cular diagnostic assa y utilizes Accessibility Lift Technician Mediated Amplification ( TMA) technology to r apidly detect the SARS -CoV-2 (COVID-19) viru s from respiratory adriana ples. In accordance w ith the FDA's kamran nce document "Polic y for Diagnostic Test s for Coronavirus Disease-2019 [facility]", thi s test was developed, and its performance characteristics were verified by the [facility] molecular diagn ostics laboratory and is authorized for clinical diagno stic use. This labor atory is certified un [place] the Clinical Laboratory Improvement Amendments (CLI A) as qualified to pe rform high complexity clinical labora tory testing. Lab Interpretation Normal (test code = 61726-4) [facility]ronavirus, CoVID-19, [id number] 01:07:20 Test Item Value Reference Range Interpretation Comments COVID-19 (SARS-COV-2) Not Detected Not Detected INTERP RETATION: No (test code = 54024-7) detect able levels of SARS-CoV-2 Coronavirus (COVID-19) [...] SARS-CoV-2 mole cular diagnostic assa y utilizes Accessibility Lift Technician Mediated Amplification ( TMA) technology to r apidly detect the SARS -CoV-2 (COVID-19) viru s from respiratory adriana ples. In accordance w ith the FDA's kamran nce document "Polic y for Diagnostic Test s for Coronavirus Disease-2019 [facility]", thi s test was developed, and its performance characteristics were verified by the [facility] molecular diagn ostics laboratory and is authorized for clinical diagno stic use. This labor atory is certified un [place] the Clinical Laboratory Improvement Amendments (CLI A) as qualified to pe rform high complexity clinical labora tory testing. Lab Interpretation Normal (test code = 52992-7) [facility], [id number] 01:07:20 Test Item Value Reference Range Interpretation Comments COVID-19 (SARS-COV-2) Not Detected Not Detected INTERP RETATION: No (test code = 88159-6) detect able levels of SARS-CoV-2 Coronavirus (COVID-19) [...] SARS-CoV-2 mole cular diagnostic assa y utilizes Accessibility Lift Technician Mediated Amplification ( TMA) technology to r apidly detect the SARS -CoV-2 (COVID-19) viru s from respiratory adriana ples. In accordance w ith the FDA's kamran nce document "Polic y for Diagnostic Test s for Coronavirus Disease-2019 [facility]", thi s test was developed, and its performance characteristics were verified by the [facility] molecular diagn ostics laboratory and is authorized for clinical diagno stic use. This labor atory is certified un [place] the Clinical Laboratory Improvement Amendments (CLI A) as qualified to pe rform high complexity clinical labora tory testing. Lab Interpretation Normal (test code = 13859-5) [facility], [id number] 01:07:20 Test Item Value Reference Range Interpretation Comments COVID-19 (SARS-COV-2) Not Detected Not Detected INTERP RETATION: No (test code = 97704-4) detect able levels of SARS-CoV-2 Coronavirus (COVID-19) [...] SARS-CoV-2 mole cular diagnostic assa y utilizes Accessibility Lift Technician Mediated Amplification ( TMA) technology to r apidly detect the SARS -CoV-2 (COVID-19) viru s from respiratory adriana ples. In accordance w ith the FDA's kamran nce document "Polic y for Diagnostic Test s for Coronavirus Disease-2019 [facility]", thi s test was developed, and its performance characteristics were verified by the [facility] molecular diagn ostics laboratory and is authorized for clinical diagno stic use. This labor atory is certified un [place] the Clinical Laboratory Improvement Amendments (CLI A) as qualified to pe rform high complexity clinical labora tory testing. Lab Interpretation Normal (test code = 64692-0) [place] [facility], CoVID-19, [id number] 01:07:20 Test Item Value Reference Range Interpretation Comments COVID-19 (SARS-COV-2) Not Detected Not Detected INTERP RETATION: No (test code = 30029-3) detect able levels of SARS-CoV-2 Coronavirus (COVID-19) [...] SARS-CoV-2 mole cular diagnostic assa y utilizes Accessibility Lift Technician Mediated Amplification ( TMA) technology to r apidly detect the SARS -CoV-2 (COVID-19) viru s from respiratory adriana ples. In accordance w ith the FDA's kamran nce document "Polic y for Diagnostic Test s for Coronavirus Disease-2019 du [place] the [facility] Emergency", thi s test was developed, and its performance characteristics were verified by the [facility] molecular diagn ostics laboratory and is authorized for clinical diagno stic use. This labor atory is certified un [place] the Clinical Laboratory Improvement Amendments (CLI A) as qualified to pe rform high complexity clinical labora tory testing. Lab Interpretation Normal (test code = 45795-7) [facility], [id number] 01:07:20 Test Item Value Reference Range Interpretation Comments COVID-19 (SARS-COV-2) Not Detected Not Detected INTERP RETATION: No (test code = 92495-8) detect able levels of SARS-CoV-2 Coronavirus (COVID-19) [...] SARS-CoV-2 mole cular diagnostic assa y utilizes Accessibility Lift Technician Mediated Amplification ( TMA) technology to r apidly detect the SARS -CoV-2 (COVID-19) viru s from respiratory adriana ples. In accordance w ith the FDA's kamran nce document "Polic y for Diagnostic Test s for Coronavirus Disease-2019 [facility] Emergency", thi s test was developed, and its performance characteristics were verified by the [facility] molecular diagn ostics laboratory and is authorized for clinical diagno stic use. This labor atory is certified un [place] the Clinical Laboratory Improvement Amendments (CLI A) as qualified to pe rform high complexity clinical labora tory testing. Lab Interpretation Normal (test code = 45445-9) [facility], [id number] 01:07:20 Test Item Value Reference Range Interpretation Comments COVID-19 (SARS-COV-2) Not Detected Not Detected INTERP RETATION: No (test code = 81334-1) detect able levels of SARS-CoV-2 Coronavirus (COVID-19) [...] SARS-CoV-2 mole cular diagnostic assa y utilizes Accessibility Lift Technician Mediated Amplification ( TMA) technology to r apidly detect the SARS -CoV-2 (COVID-19) viru s from respiratory adriana ples. In accordance w ith the FDA's kamran nce document "Polic y for Diagnostic Test s for Coronavirus Disease-2019 [facility]", thi s test was developed, and its performance characteristics were verified by the [facility] molecular diagn ostics laboratory and is authorized for clinical diagno stic use. This labor atory is certified [place] the Clinical Laboratory Improvement Amendments (CLI A) as qualified to pe rform high complexity clinical labora tory testing. Lab Interpretation Normal (test code = 77542-4) [facility], [id number] 01:07:20 Test Item Value Reference Range Interpretation Comments COVID-19 (SARS-COV-2) Not Detected Not Detected INTERP RETATION: No (test code = 34300-1) detect able levels of SARS-CoV-2 Coronavirus (COVID-19) [...] SARS-CoV-2 mole cular diagnostic assa y utilizes Accessibility Lift Technician Mediated Amplification ( TMA) technology to r apidly detect the SARS -CoV-2 (COVID-19) viru s from respiratory adriana ples. In accordance w ith the FDA's kamran nce document "Polic y for Diagnostic Test s for Coronavirus Disease-2019 [facility]", thi s test was developed, and its performance characteristics were verified by the [facility] molecular diagn ostics laboratory and is authorized for clinical diagno stic use. This labor atory is certified un [place] the Clinical Laboratory Improvement Amendments (CLI A) as qualified to pe rform high complexity clinical labora tory testing. Lab Interpretation Normal (test code = 52642-1) [place] [facility], [facility], [id number] 01:07:20 Test Item Value Reference Range Interpretation Comments COVID-19 (SARS-COV-2) Not Detected Not Detected INTERP RETATION: No (test code = 92433-6) detect able levels of SARS-CoV-2 Coronavirus (COVID-19) [...] SARS-CoV-2 mole cular diagnostic assa y utilizes Accessibility Lift Technician Mediated Amplification ( TMA) technology to r apidly detect the SARS -CoV-2 (COVID-19) viru s from respiratory adriana ples. In accordance w ith the FDA's kamran nce document "Polic y for Diagnostic Test s for Coronavirus Disease-2019 [facility]", thi s test was developed, and its performance characteristics were verified by the [facility] molecular diagn ostics laboratory and is authorized for clinical diagno stic use. This labor atory is certified un [place] the Clinical Laboratory Improvement Amendments (CLI A) as qualified to pe rform high complexity clinical labora tory testing. Lab Interpretation Normal (test code = 21285-9) [facility], [id number] 01:07:20 Test Item Value Reference Range Interpretation Comments COVID-19 (SARS-COV-2) Not Detected Not Detected INTERP RETATION: No (test code = 66580-7) detect able levels of SARS-CoV-2 Coronavirus (COVID-19) [...] SARS-CoV-2 mole cular diagnostic assa y utilizes Accessibility Lift Technician Mediated Amplification ( TMA) technology to r apidly detect the SARS -CoV-2 (COVID-19) viru s from respiratory adriana ples. In accordance w ith the FDA's kamran nce document "Polic y for Diagnostic Test s for Coronavirus Disease-2019 [facility] [place] [facility]", thi s test was developed, and its performance characteristics were verified by the [facility] molecular diagn ostics laboratory and is authorized for clinical diagno stic use. This labor atory is certified un [place] the Clinical Laboratory Improvement Amendments (CLI A) as qualified to pe rform high complexity clinical labora tory testing. Lab Interpretation Normal (test code = 21722-8) [facility], [facility], [id number] 01:07:20 Test Item Value Reference Range Interpretation Comments COVID-19 (SARS-COV-2) Not Detected Not Detected INTERP RETATION: No (test code = 76243-4) detect able levels of SARS-CoV-2 Coronavirus (COVID-19) [...] SARS-CoV-2 mole cular diagnostic assa y utilizes Accessibility Lift Technician Mediated Amplification ( TMA) technology to r apidly detect the SARS -CoV-2 (COVID-19) viru s from respiratory adriana ples. In accordance w ith the FDA's kamran nce document "Polic y for Diagnostic Test s for Coronavirus Disease-2019 [facility] [place] [facility]", thi s test was developed, and its performance characteristics were verified by the [facility] molecular diagn ostics laboratory and is authorized for clinical diagno stic use. This labor atory is certified un [place] the Clinical Laboratory Improvement Amendments (CLI A) as qualified to pe rform high complexity clinical labora tory testing. Lab Interpretation Normal (test code = 30489-2) [facility], CoVID-19, [id number] 01:07:20 Test Item Value Reference Range Interpretation Comments COVID-19 (SARS-COV-2) Not Detected Not Detected INTERP RETATION: No (test code = 29542-8) detect able levels of SARS-CoV-2 Coronavirus (COVID-19) [...] SARS-CoV-2 mole cular diagnostic assa y utilizes Accessibility Lift Technician Mediated Amplification ( TMA) technology to r apidly detect the SARS -CoV-2 (COVID-19) viru s from respiratory adriana ples. In accordance w ith the FDA's kamran nce document "Polic y for Diagnostic Test s for Coronavirus Disease-2019 [facility] [place] [facility]", thi s test was developed, and its performance characteristics were verified by the [facility] molecular diagn ostics laboratory and is authorized for clinical diagno stic use. This labor atory is certified un [place] the Clinical Laboratory Improvement Amendments (CLI A) as qualified to pe rform high complexity clinical labora tory testing. Lab Interpretation Normal (test code = 48318-0) [facility] ORF1ab Resp Ql OLENA+[id number] 01:07:20 Test Item Value Reference Range Interpretation Comments Hospitalized? (test No code = 03961-7) ICU? (test code = No 86217-0) Symptomatic as No defined by CDC? (test code = 06993-4) Employed in No Healthcare? (test code = 20375-2) Resident in a No congregate care setting (including nursing homes, residential care for people with intellectual and developmental disabilities, psychiatric treatment facilities, group homes, board and care homes, homeless care home, foster care or other): (test code = 24715-2) SARS-CoV-2 ORF1ab NOT DETECTED Not Detected INTERPRETA TION: No Resp Ql OLENA+probe detectable levels of (test code = SARS-CoV-2 81312-0) Coronavirus (COVID-19) were present in this patient's [...] SARS-CoV-2 mole cular diagnostic assa y utilizes Accessibility Lift Technician Mediated Amplification ( TMA) technology to r apidly detect the SARS -CoV-2 (COVID-19) viru s from respiratory adriana ples. In accordance with\\XC2A0\\the FDA's guidance docume nt "Policy for Diagnostic Test s for Coronavirus Disease-2019 [facility] [place] [facility]", amalia s test was developed, and its performance characteristics were verified by the [facility] molecular diagn ostics laboratory and is authorized for clinical diagno stic use. \\XC2A0\\Amalia s laboratory is certified under the Clinical Labora tory Improvement Amendments (CLI A) as qualified to pe rform high complexity clinical labora tory testing. [facility] [id number] 08:09:01 Test Item Value Reference Range Interpretation Comments Glucose POC (test code = 69639521) 85 mg/dL 74-106 Lab Interpretation (test code = Normal 89578-3) [facility] [id number] 08:09:01 Test Item Value Reference Range Interpretation Comments Glucose POC (test code = 37039628) 85 mg/dL 74-106 Lab Interpretation (test code = Normal 52136-6) [facility] zbkjhh2905-20-14 08:09:01 Test Item Value Reference Range Interpretation Comments Glucose POC (test code = 37608884) 85 mg/dL 74-106 Lab Interpretation (test code = Normal 58365-2) [facility] [id number] 08:09:01 Test Item Value Reference Range Interpretation Comments Glucose POC (test code = 86748648) 85 mg/dL 74-106 Lab Interpretation (test code = Normal 60375-0) [facility] kikryv9895-18-90 08:09:01 Test Item Value Reference Range Interpretation Comments Glucose POC (test code = 01014323) 85 mg/dL 74-106 Lab Interpretation (test code = Normal 31084-1) [facility] [id number] 08:09:01 Test Item Value Reference Range Interpretation Comments Glucose POC (test code = 19987958) 85 mg/dL 74-106 Lab Interpretation (test code = Normal 00465-5) [facility] bgafce2020-90-30 08:09:01 Test Item Value Reference Range Interpretation Comments Glucose POC (test code = 84111084) 85 mg/dL 74-106 Lab Interpretation (test code = Normal 79022-7) [facility] ysrrph5577-86-26 08:09:01 Test Item Value Reference Range Interpretation Comments Glucose POC (test code = 36765860) 85 mg/dL 74-106 Lab Interpretation (test code = Normal 41519-9) [facility] swcixr0736-99-57 08:09:01 Test Item Value Reference Range Interpretation Comments Glucose POC (test code = 86050440) 85 mg/dL 74-106 Lab Interpretation (test code = Normal 87163-6) [facility] styxeg8109-96-71 08:09:01 Test Item Value Reference Range Interpretation Comments Glucose POC (test code = 29952525) 85 mg/dL 74-106 Lab Interpretation (test code = Normal 65971-7) [facility] ktyyty5184-22-23 08:09:01 Test Item Value Reference Range Interpretation Comments Glucose POC (test code = 77209462) 85 mg/dL 74-106 Lab Interpretation (test code = Normal 10138-0) [facility] mlzsph1680-01-06 08:09:01 Test Item Value Reference Range Interpretation Comments Glucose POC (test code = 19877770) 85 mg/dL 74-106 Lab Interpretation (test code = Normal 79645-0) [facility] gqqnkx5493-73-26 08:09:01 Test Item Value Reference Range Interpretation Comments Glucose POC (test code = 30207779) 85 mg/dL 74-106 Lab Interpretation (test code = Normal 50550-4) [facility] [id number] 08:09:01 Test Item Value Reference Range Interpretation Comments Glucose POC (test code = 43265879) 85 mg/dL 74-106 Lab Interpretation (test code = Normal 74704-3) [facility] boiejr9593-85-39 08:09:01 Test Item Value Reference Range Interpretation Comments Glucose POC (test code = 66052514) 85 mg/dL 74-106 Lab Interpretation (test code = Normal 70184-5) [facility] omcxrg4736-89-10 08:09:01 Test Item Value Reference Range Interpretation Comments Glucose POC (test code = 18245253) 85 mg/dL 74-106 Lab Interpretation (test code = Normal 84725-9) [facility] reocpk9114-10-91 08:09:01 Test Item Value Reference Range Interpretation Comments Glucose POC (test code = 02400309) 85 mg/dL 74-106 Lab Interpretation (test code = Normal 41546-3) [facility] timghy3427-20-62 08:09:01 Test Item Value Reference Range Interpretation Comments Glucose POC (test code = 56705749) 85 mg/dL 74-106 Lab Interpretation (test code = Normal 24289-0) [facility] [id number] 08:09:01 Test Item Value Reference Range Interpretation Comments Glucose POC (test code = 13752488) 85 mg/dL 74-106 Lab Interpretation (test code = Normal 09292-2) [facility] ojxhml8138-71-52 08:09:01 Test Item Value Reference Range Interpretation Comments Glucose POC (test code = 24515630) 85 mg/dL 74-106 Lab Interpretation (test code = Normal 56772-8) [facility] [id number] 08:09:01 Test Item Value Reference Range Interpretation Comments Glucose POC (test code = 69561119) 85 mg/dL 74-106 Lab Interpretation (test code = Normal 72092-6) [facility] igfpfk8013-09-51 08:09:01 Test Item Value Reference Range Interpretation Comments Glucose POC (test code = 28335412) 85 mg/dL 74-106 Lab Interpretation (test code = Normal 84938-4) [facility] deazjz9225-14-39 08:09:01 Test Item Value Reference Range Interpretation Comments Glucose POC (test code = 69756623) 85 mg/dL 74-106 Lab Interpretation (test code = Normal 36993-7) [facility] ukwwqy3037-80-43 08:09:01 Test Item Value Reference Range Interpretation Comments Glucose POC (test code = 22211597) 85 mg/dL 74-106 Lab Interpretation (test code = Normal 31039-6) [facility] ilchvh6356-04-65 08:09:01 Test Item Value Reference Range Interpretation Comments Glucose POC (test code = 85833792) 85 mg/dL 74-106 Lab Interpretation (test code = Normal 92544-1) [facility], CoV[facility]-19, [id number] 23:25:40 Test Item Value Reference Range Interpretation Comments COVID-19 (SARS-COV-2) Not Detected Not Detected INTERP RETATION: No (test code = 78254-7) detect able levels of SARS-CoV-2 Coronavirus (COVID-19) [...] SARS-CoV-2 mole cular diagnostic assa y utilizes Accessibility Lift Technician Mediated Amplification ( TMA) technology to r apidly detect the SARS -CoV-2 (COVID-19) viru s from respiratory adriana ples. In accordance w ith the FDA's kamran nce document "Polic y for Diagnostic Test s for Coronavirus Disease-2019 [place] the [facility]", thi s test was developed, and its performance characteristics were verified by the [facility] molecular diagn ostics laboratory and is authorized for clinical diagno stic use. This labor atory is certified un [place] the Clinical Laboratory Improvement Amendments (CLI A) as qualified to pe rform high complexity clinical labora tory testing. Lab Interpretation Normal (test code = 17479-2) [facility] HospitalVngwofFRVP-FtO-2 ORF1ab Resp Ql OLENA+[id number] 23:25:40 Test Item Value Reference Range Interpretation Comments Hospitalized? (test No code = 46417-1) ICU? (test code = No 59221-4) Symptomatic as No defined by CDC? (test code = 86728-3) Employed in No Healthcare? (test code = 54834-6) Resident in a No congregate care setting (including nursing homes, residential care for people with intellectual and developmental disabilities, psychiatric treatment facilities, group homes, board and care homes, homeless care home, foster care or other): (test code = 04204-3) SARS-CoV-2 ORF1ab NOT DETECTED Not Detected INTERPRETA TION: No Resp Ql OLENA+probe detectable levels of (test code = SARS-CoV-2 05775-7) Coronavirus (COVID-19) were present in this patient's [...] SARS-CoV-2 mole cular diagnostic assa y utilizes Accessibility Lift Technician Mediated Amplification ( TMA) technology to r apidly detect the SARS -CoV-2 (COVID-19) viru s from respiratory adriana ples. In accordance with\\XC2A0\\the FDA's guidance docume nt "Policy for Diagnostic Test s for Coronavirus Disease-2019 du [place] the [facility]", amalia s test was developed, and its performance characteristics were verified by the [facility] molecular diagn ostics laboratory and is authorized for clinical diagno stic use. \\XC2A0\\Thi s laboratory is certified under the Clinical Labora tory Improvement Amendments (CLI A) as qualified to pe rform high complexity clinical labora tory testing. 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: [id number]: 1970 Requested By: SUSHIL LOERA [place] Number: [id number] Reading MD: Rene Patterson MeasurementsIntervals [place] Rate: 61 P: 72PR: 152 QRS: 55QRSD: 106 T: 63QT: 398 QTc: 400 Interpretive StatementsSINUS RHYTHMPOSSIBLE RIGHT VENTRICULAR CONDUCTION DELAY [RSR (QR) IN V1/V2]Electronically Signed On 01-22-2022 8:30:45 CDT by Rene Valle Whaysb92 Lead [id number] 15:46:1012 LEAD EKG FOR [facility] Test Date: 0990-27-08Odv Name: DORA MCNEILL Department: 5ECIPatient ID: [id number] Room: Gender: 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 Attendant: [id number]: 1970 Requested By: SUSHIL Cho Number: [id number] Reading MD: Rene Patterson MeasurementsIntervals [place] Rate: 61 P: 72PR: 152 QRS: 55QRSD: 106 T: 63QT: 398 QTc: 400 Interpretive StatementsSINUS RHYTHMPOSSIBLE RIGHT VENTRICULAR CONDUCTION DELAY [RSR (QR) IN V1/V2]Electronically Signed On 01-22-2022 8:30:45 CDT by Rene AvitiaCalAmpCompaartes[facility] hospital Mojoov63 Lead [id number] 15:46:1012 LEAD EKG FOR [facility] Test Date: 1347-55-11Qvi Name: DORA MCNEILL Department: 5ECIPatient ID: [id number] Room: Gender: 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 Attendant: [id number]: 1970 Requested By: SUSHIL Cho Number: [id number] Reading MD: Rene Patterson MeasurementsIntervals [place] Rate: 61 P: 72PR: 152 QRS: 55QRSD: 106 T: 63QT: 398 QTc: 400 Interpretive StatementsSINUS RHYTHMPOSSIBLE RIGHT VENTRI CULAR CONDUCTION DELAY [RSR (QR) IN V1/V2]Electronically Signed On 01-22-2022 8:30:45 CDT by Rene DebbyCalAmpCompaPurkinje12 Lead [id number] 15:46:1012 LEAD EKG FOR [facility] Test Date: 2139-73-78Gfx Name: DORA MCNEILL Department: 5ECIPatient ID: [id number] Room: Gender: M 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 Attendant: [id number]: 1970 Requested By: SUSHIL Cho Number: [id number] Reading MD: Rene Patterson MeasurementsIntervals [place] Rate: 61 P: 72PR: 152 QRS: 55QRSD: 106 T: 63QT: 398 QTc: 400 Interpretive StatementsSINUS RHYTHMPOSSIBLE RIGHT VENTRICULAR CONDUCTION DELAY [RSR (QR) IN V1/V2]Electronically Signed On 01-22-2022 8:30:45 CDT by Rene AvitiaCalAmpCompaPurkinje12 Lead [id number] 15:46:1012 LEAD EKG FOR [facility] Test Date: 2775-36-47Ngn Name: DORA MCNEILL Department: 5ECIPatient ID: [id number] Room: Gender: M 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 Attendant: [id number]: 1970 Requested By: SUSHIL Cho Number: [id number] Reading MD: Rene Patterson MeasurementsIntervals [place] Rate: 61 P: 72P R: 152 QRS: 55QRSD: 106 T: 63QT: 398 QTc: 400 Interpretive StatementsSINUS RHYTHMPOSSIBLE RIGHT VENTRICULAR CONDUCTION DELAY [RSR (QR) IN V1/V2]Electronically Signed On 01-22-2022 8:30:45 CDT by Rnee HerPurkinje12 Lead [id number] 15:46:1012 LEAD EKG FOR [facility] Test Date: 3094-77-17Isd Name: DORA MCNEILL Department: 5ECIPatient ID: [id number] Room: Gender: M 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 Attendant: [id number]: 1970 Requested By: SUSHIL Cho Number: [id number] Reading MD: Rene Patterson MeasurementsIntervals [place] Rate: 61 P: 72PR: 152 QRS: 55QRSD: 106 T: 63QT: 398 QTc: 400 Interpretive StatementsSINUS RHYTHMPOSSIBLE RIGHT VENTRICULAR CONDUCTION DELAY [RSR (QR) IN V1/V2]Electronically Signed On 01-22-2022 8:30:45 CDT by Rene AvitiaCalAmpCompaPurkinje12 Lead [id number] 15:46:1012 LEAD EKG FOR [facility] Test Date: 9829-35-09Qvn Name: DORA MCNEILL Department: 5EPatient ID: [id number] Room: Gender: M 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 Attendant: [id number]: 1970 Requested By: SUSHIL Cho Number: [id number] Reading MD: Rene Patterson MeasurementsIntervals [place] Rate: 61 P: 72PR: 152 QRS: 55QRSD: 106 T: 63QT: 398 QTc: 400 Interpretive StatementsSINUS RHYTHMPOSSIBLE RIGHT VENTR ICULAR CONDUCTION DELAY [RSR (QR) IN V1/V2]Electronically Signed On 01-22-2022 8:30:45 CDT by Rene [place] [address] Lead [id number] 15:46:1012 LEAD EKG FOR [facility] Test Date: 4024-06-44Lyd Name: DORA MCNEILL Department: 5EPatient ID: [id number] Room: Gender: M 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 Attendant: [id number]: 1970 Requested By: SUSHIL Cho Number: [id number] Reading MD: Rene Patterson MeasurementsIntervals [place] Rate: 61 P: 72PR: 152 QRS: 55QRSD: 106 T: 63QT: 398 QTc: 400 Interpretive StatementsSINUS RHYTHMPOSSIBLE RIGHT VENTRICULAR CONDUCTION DELAY [RSR (QR) IN V1/V2]Electronically Signed On 01-22-2022 8:30:45 CDT by Rene Valle Yqkpdc48 Lead [id number] 15:46:1012 LEAD EKG FOR [facility] Test Date: 8211-49-15Vro Name: DORA MCNEILL Department: 5ECIPatient ID: [id number] Room: Gender: M 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 Attendant: [id number]: 1970 Requested By: SUSHIL Cho Number: [id number] Reading MD: Rene Patterson MeasurementsIntervals [place] Rate: 61 P: 72PR: 152 QRS: 55QRSD: 106 T: 63QT: 398 QTc: 400 Interpretive StatementsSINUS RHYTHMPOSSIBLE RIGHT VENTRICULAR CONDUCTION DELAY [RSR (QR) IN V1/V2]Electronically Signed On 01-22-2022 8:30:45 CDT by Rene RahmanSMSHarris Zpajgl47 Lead [id number] 15:46:1012 LEAD EKG FOR [facility] Test Date: 0844-61-91Zkm Name: DORA MCNEILL Department: 5ECIPatient ID: [id number] Room: Gender: M 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 Attendant: [id number]: 1970 Requested By: SUSHIL Cho Number: [id number] Reading MD: Rene Patterson MeasurementsIntervals [place] Rate: 61 P: 72PR: 152 QRS: 55QRSD: 106 T: 63QT: 398 QTc: 400 Interpretive StatementsSINUS RHYTHMPOSSIBLE RIGHT VENTRICULAR CONDUCTION DELAY [RSR (QR) IN V1/V2]Electronically Signed On 01-22-2022 8:30:45 CDT by Rene RaanSCleveland Clinic12 Lead [id number] 15:46:1012 LEAD EKG FOR [facility] Test Date: 7000-97-41Zhx Name: DORA MCNEILL Department: 5ECIPatient ID: [id number] Room: Gender: M 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 Attendant: [id number]: 1970 Requested By: SUSHIL Cho Number: [id number] Reading MD: Rene Patterson MeasurementsIntervals [place] Rate: 61 P: 72PR: 152 QRS: 55QRSD: 106 T: 63QT: 398 QTc: 400 Interpretive StatementsSINUS RHYTHMPOSSIBLE RIGHT VENTRI CULAR CONDUCTION DELAY [RSR (QR) IN V1/V2]Electronically Signed On 01-22-2022 8:30:45 CDT by Rene [facility] CenterDebbyFLHarris Wirexx76 Lead [id number] 15:46:1012 LEAD EKG FOR [facility] Test Date: 0036-48-31Smu Name: DORA MCNEILL Department: 5ECIPatient ID: [id number] Room: Gender: M 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 Attendant: [id number]: 1970 Requested By: SUSHIL Cho Number: [id number] Reading MD: Rene Ptaterson MeasurementsIntervals [place] Rate: 61 P: 72PR: 152 QRS: 55QRSD: 106 T: 63QT: 398 QTc: 400 Interpretive StatementsSINUS RHYTHMPOSSIBLE RIGHT VENTRICULAR CONDUCTION DELAY [RSR (QR) IN V1/V2]Electronically Signed On 01-22-2022 8:30:45 CDT by Rene AvitiaCalAmpCompaartesia general hospital Gjgzko32 Lead [id number] 15:46:1012 LEAD EKG FOR [facility] Test Date: 2223-13-39Jsd Name: DORA MCNEILL Department: 5ECIPatient ID: [id number] Room: Gender: M 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 Attendant: [id number]: 1970 Requested By: SUSHIL Cho Number: [id number] Reading MD: Rene Patterson MeasurementsIntervals [place] Rate: 61 P: 72PR: 152 QRS: 55QRSD: 106 T: 63QT: 398 QTc: 400 Interpretive StatementsSINUS RHYTHMPOSSIBLE RIGHT VENTRICULAR CONDUCTION DELAY [RSR (QR) IN V1/V2]Electronically Signed On 01-22-2022 8:30:45 CDT by Rene ProfoundDebbyCalAmpCompaPurkinje12 Lead [id number] 15:46:1012 LEAD EKG FOR [facility] Test Date: 7816-12-92Yxc Name: DORA MCNEILL Department: 5EPatient ID: [id number] Room: Gender: M 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 Attendant: [id number]: 1970 Requested By: SUSHIL Cho Number: [id number] Reading MD: Rene Patterson MeasurementsIntervals [place] Rate: 61 P: 72PR: 152 QRS: 55QRSD: 106 T: 63QT: 398 QTc: 400 Interpretive StatementsSINUS RHYTHMPOSSIBLE RIGHT VENTRICULAR CONDUCTION DELAY [RSR (QR) IN V1/V2]Electronically Signed On 01-22-2022 8:30:45 CDT by Rene DebbyCalAmpCompaartesia general hospital Syaiyv58 Lead [id number] 15:46:1012 LEAD EKG FOR [facility] Test Date: 9491-90-60Lma Name: DORA MCNEILL Department: 5ECIPatient ID: [id number] Room: Gender: M 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 Attendant: [id number]: 1970 Requested By: SUSHIL Cho Number: [id number] Reading MD: Rene Patterson MeasurementsIntervals [place] Rate: 61 P: 72PR: 152 QRS: 55QRSD: 106 T: 63QT: 398 QTc: 400 Interpretive StatementsSINUS RHYTHMPOSSIBLE RIGHT VENTRIC ULAR CONDUCTION DELAY [RSR (QR) IN V1/V2]Electronically Signed On 01-22-2022 8:30:45 CDT by Rene SadiCalAmpComparis Yyffsu47 Lead [id number] 15:46:1012 LEAD EKG FOR [facility] Test Date: 8740-49-99Uqe Name: DORA PAEZRY Department: 5ECIPatient ID: [id number] Room: Gender: M 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 Attendant: [id number]: 1970 Requested By: SUSHIL Cho Number: [id number] Reading MD: Rene Patterson MeasurementsIntervals [place] Rate: 61 P: 72PR: 152 QRS: 55QRSD: 106 T: 63QT: 398 QTc: 400 Interpretive StatementsSINUS RHYTHMPOSSIBLE RIGHT VENTRICULAR CONDUCTION DELAY [RSR (QR) IN V1/V2]Electronically Signed On 01-22-2022 8:30:45 CDT by Renerick AvitiaCalAmpCompaartesia general hospital Aofhln48 Lead [id number] 15:46:1012 LEAD EKG FOR [facility] Test Date: 9633-98-85Alo Name: DORA OPAL Department: 5ECIPatient ID: [id number] Room: Gender: M 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 Attendant: [id number]: 1970 Requested By: SUSHIL Cho Number: [id number] Reading MD: Rene Patterson MeasurementsIntervals [place] Rate: 61 P: 72PR: 152 QRS: 55QRSD: 106 T: 63QT: 398 QTc: 400 Interpretive StatementsSINUS RHYTHMPOSSIBLE RIGHT VENTRICULAR CONDUCTION DELAY [RSR (QR) IN V1/V2]Electronically Signed On 01-22-2022 8:30:45 CDT by [facility] HospitalDebbyFLCompaartesia general hospital Bmeplq49 Lead [id number] 15:46:1012 LEAD EKG FOR [facility] Test Date: 0309-08-03Kxw Name: DORA MCNEILL Department: 5ECIPatient ID: [id number] Room: Gender: M 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 Attendant: [id number]: 1970 Requested By: SUSHIL Cho Number: [id number] Reading MD: Rene Patterson MeasurementsIntervals [place] Rate: 61 P: 72PR: 152 QRS: 55QRSD: 106 T: 63QT: 398 QTc: 400 Interpretive StatementsSINUS RHYTHMPOSSIBLE RIGHT VENTRICULAR CONDUCTION DELAY [RSR (QR) IN V1/V2]Electronically Signed On 01-22-2022 8:30:45 CDT by Rene AvitiaCalAmpMaged Vscocw50 Lead [id number] 15:46:1012 LEAD EKG FOR [facility] Test Date: 9453-66-24Sro Name: DORA MCNEILL Department: 5ECIPatient ID: [id number] Room: Gender: M 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 Attendant: [id number]: 1970 Requested By: SUSHIL Cho Number: [id number] Reading MD: Rene Patterson MeasurementsIntervals [place] Rate: 61 P: 72PR: 152 QRS: 55QRSD: 106 T: 63QT: 398 QTc: 400 Interpretive StatementsSINUS RHYTHMPOSSIBLE RIGHT VENTR ICULAR CONDUCTION DELAY [RSR (QR) IN V1/V2]Electronically Signed On 01-22-2022 8:30:45 CDT by Rene Valle Yggbaq38 Lead [id number] 15:46:1012 LEAD EKG FOR [facility] Test Date: 6663-45-31Uya Name: DORA MCNEILL Department: 5ECIPatient ID: [id number] Room: Gender: M 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 Attendant: [id number]: 1970 Requested By: SUSHIL Cho Number: [id number] Reading MD: Rene Patterson MeasurementsIntervals [place] Rate: 61 P: 72PR: 152 QRS: 55QRSD: 106 T: 63QT: 398 QTc: 400 Interpretive StatementsSINUS RHYTHMPOSSIBLE RIGHT VENTRICULAR CONDUCTION DELAY [RSR (QR) IN V1/V2]Electronically Signed On 01-22-2022 8:30:45 CDT by Rene scPharmaceuticalsCity LabsFLHarris Xpvqrg24 Lead [id number] 15:46:1012 LEAD EKG FOR [facility] Test Date: 1476-84-85Dyw Name: DORA MCNEILL Department: 5ECIPatient ID: [id number] Room: Gender: M 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 Attendant: [id number]: 1970 Requested By: SUSHIL Cho Number: [id number] Reading MD: Rene Patterson MeasurementsIntervals [place] Rate: 61 P: 72PR: 152 QRS: 55QRSD: 106 T: 63QT: 398 QTc: 400 Interpretive StatementsSINUS RHYTHMPOSSIBLE RIGHT VENTRICULAR CONDUCTION DELAY [RSR (QR) IN V1/V2]Electronically Signed On 01-22-2022 8:30:45 CDT by Rene [facility] Medical CenterDebbyCalAmpCanoga Park Cktlnn20 Lead [id number] 15:46:1012 LEAD EKG FOR [facility] Test Date: 2609-84-65Naq Name: DORA MCNEILL Department: 5ECIPatient ID: [id number] Room: Gender: M 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 Attendant: [id number]: 1970 Requested By: SUSHIL Cho Number: [id number] Reading MD: Rene Patterson MeasurementsIntervals [place] Rate: 61 P: 72PR: 152 QRS: 55QRSD: 106 T: 63QT: 398 QTc: 400 Interpretive StatementsSINUS RHYTHMPOSSIBLE RIGHT VENTRICULAR CONDUCTION DELAY [RSR (QR) IN V1/V2]Electronically Signed On 01-22-2022 8:30:45 CDT by [facility] HospitalCity LabsC[facility] Clinic12 Lead [id number] 15:46:1012 LEAD EKG FOR [facility] Test Date: 2797-37-57Tla Name: DORA MCNEILL Department: 5ECIPatient ID: [id number] Room: Gender: M 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 Attendant: [id number]: 1970 Requested By: SUSHIL Cho Number: [id number] Reading MD: Rene Patterson MeasurementsIntervals [place] Rate: 61 P: 72PR: 152 QRS: 55QRSD: 106 T: 63QT: 398 QTc: 400 Interpretive StatementsSINUS RHYTHMPOSSIBLE RIGHT VENTRI CULAR CONDUCTION DELAY [RSR (QR) IN V1/V2]Electronically Signed On 01-22-2022 8:30:45 CDT by Rene [facility] 1+2 Ab+HIV1 p24 Ag SerPl Ql [place] 2022-01-18 07:02:58 Test Item Value Reference Range Interpretation Comments HIV 1+2 Ab+HIV1 p24 Ag SerPl Ql [place] NEGATIVE Negative (test code = 56270-0) [id number] 21:23:2512 LEAD EKG FOR [facility] Test Date: 7995-11-38Cwo Name: DORA MCNEILL Department: 5520Patient ID: [id number] Room: 2I88Mvdnro: 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1970 Requested By: KARIN BASSETT AOrder Number: [id number] Reading MD: Chiara Calles MeasurementsIntervals [place] Rate: 72 P: 90PR:157 QRS: 87QRSD: 105 T: 90QT: 360 QTc: 384 Interpretive StatementsSINUS RHYTHMPOSSIBLE RIGHT VENTRICULAR CONDUCTION DELAY [RSR (QR) IN V1/V2]EARLY REPOLARIZATION [ST ELEVATION WITH NORMALLY INFLECTED T- WAVE]Electronically Signed On 01-17-2022 13:02:30 CDT by [place] 83952022-05-26 21:23:2512 LEAD EKG FOR [facility] Test Date: 1703-78-19Tda Name: DORA MCNEILL Department: 5520Patient ID: [id number] Room: 9K64Gcgdpi: 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1970 Requested By: JESSICA AOrder Number: [id number] Reading MD: Chiara Calles MeasurementsIntervals [place] Rate: 72 P: 90PR:157 QRS: 87QRSD: 105 T: 90QT: 360 QTc: 384 Interpretive StatementsSINUS RHYTHMPOSSIBLE RIGHT VENTRICULAR CONDUCTION DELAY [RSR (QR) IN V1/V2]EARLY REPOLARIZATION [ST ELEVATION WITH NORMALLY INFLECTED T- WAVE]Electronically Signed On 01-17-2022 13:02:30 CDT by [place] 83952022-05-26 21:23:2512 LEAD EKG FOR [facility] Test Date: 5506-40-92Ypb Name: DORA MCNEILL Department: 5520Patient ID: [id number] Room: 0V79Jtvvtx: 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1970 Requested By: KARIN BASSETT AOrder Number: [id number] Reading MD: Chiara Calles MeasurementsIntervals [place] Rate: 72 P: 90PR:157 QRS: 87QRSD: 105 T: 90QT: 360 QTc: 384 Interpretive StatementsSINUS RHYTHMPOSSIBLE RIGHT VENTRICULAR CONDUCTION DELAY [RSR (QR) IN V1/V2]EARLY REPOLARIZATION [ST ELEVATION WITH NORMALLY INFLECTED T- WAVE]Electronically Signed On 01-17-2022 13:02:30 CDT by [place] 83952022-05-26 21:23:2512 LEAD EKG FOR [facility] Test Date: 1477-77-51Clg Name: DORA MCNEILL Department: 5520Patient ID: [id number] Room: 6X63Tvzwoo: 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1970 Requested By: KARIN BASSETT AOrder Number: [id number] Reading MD: Chiara Calles MeasurementsIntervals [place] Rate: 72 P: 90PR: 157 QRS: 87QRSD: 105 T: 90QT: 360 QTc: 384 Interpretive StatementsSINUS RHYTHMPOSSIBLE RIGHT VENTRICULAR CONDUCTION DELAY [RSR (QR) IN V1/V2]EARLY REPOLARIZATION [ST ELEVATION WITH NORMALLY INFLECTED T-W AVE]Electronically Signed On 01-17-2022 13:02:30 CDT by [facility] HospitalRevverCharles Ville [address]LaxjovIOK1490-63-49 21:23:2512 LEAD EKG FOR [facility] Test Date: 5320-17-01Mug Name: DORA MCNEILL Department: 5520Patient ID: [id number] Room: 5P21Egzppl: 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1970 Requested By: KARIN BASSETT AOrder Number: [id number] Reading MD: Chiara Calles MeasurementsIntervals [place] Rate: 72 P: 90PR: 157 QRS: 87QRSD: 105 T: 90QT: 360 QTc: 384 Interpretive StatementsSINUS RHYTHMPOSSIBLE RIGHT VENTRICULAR CONDUCTION DELAY [RSR (QR) IN V1/V2]EARLY REPOLARIZATION [ST ELEVATION WITH NORMALLY INFLECTED T- WAVE]Electronically Signed On 01-17-2022 13:02:30 CDT by [facility] ExchangeryCharles V[place] [address]LypogwWDF5850-92-88 21:23:2512 LEAD EKG FOR [facility] Test Date: 3580-72-60Ieq Name: DORA MCNEILL Department: 5520Patient ID: [id number] Room: 4P02Lzqaid: 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1970 Requested By: KARIN BASSETT AOrder Number: [id number] Reading MD: Chiara Calles MeasurementsIntervals [place] Rate: 72 P: 90PR: 157 QRS: 87QRSD: 105 T: 90QT: 360 QTc: 384 Interpretive StatementsSINUS RHYTHMPOSSIBLE RIGHT VENTRICULAR CONDUCTION DELAY [RSR (QR) IN V1/V2]EARLY REPOLARIZATION [ST ELEVATION WITH NORMALLY INFLECTED T-W AVE]Electronically Signed On 01-17-2022 13:02:30 CDT by [facility] HealthBack&[facility] HospitalGaguagZWD7794-25-75 21:23:2512 LEAD EKG FOR [facility] Test Date: 8015-98-67Dfd Name: DORA MCNEILL Department: 5520Patient ID: [id number] Room: 1K37Qumntw: 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1970 Requested By: JESSICA AOrder Number: [id number] Reading MD: Chiara Calles MeasurementsIntervals [place] Rate: 72 P: 90PR: 157 QRS: 87QRSD: 105 T: 90QT: 360 QTc: 384 Interpretive StatementsSINUS RHYTHMPOSSIBLE RIGHT VENTRICULAR CONDUCTION DELAY [RSR (QR) IN V1/V2]EARLY REPOLARIZATION [ST ELEVATION WITH NORMALLY INFLECTED T- WAVE]Electronically Signed On 01-17-2022 13:02:30 CDT by [facility] InventbuyBrad [place]ille 76783022-05-26 21:23:2512 LEAD EKG FOR [facility] Test Date: 5087-11-88Kpw Name: DORA MCNEILL Department: 5520Patient ID: [id number] Room: 5F52Qqxsga: 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1970 Requested By: KARIN BASSETT AOrder Number: [id number] Reading MD: Chiara Calles MeasurementsIntervals [place] Rate: 72 P: 90PR: 157 QRS: 87QRSD: 105 T: 90QT: 360 QTc: 384 Interpretive StatementsSINUS RHYTHMPOSSIBLE RIGHT VENTRICULAR CONDUCTION DELAY [RSR (QR) IN V1/V2]EARLY REPOLARIZATION [ST ELEVATION WITH NORMALLY INFLECTED T- WAVE]Electronically Signed On 01-17-2022 13:02:30 CDT by [facility] Healthrobert ExchangeryCharles [place] [address]MyzixtVYL8327-85-18 21:23:2512 LEAD EKG FOR [facility] Test Date: 7313-84-64Ske Name: DORA MCNEILL Department: 5520Patient ID: [id number] Room: 9F62Skmhtl: 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1970 Requested By: KARIN BASSETT AOrder Number: [id number] Reading MD: Chiara Calles MeasurementsIntervals [place] Rate: 72 P: 90PR:157 QRS: 87QRSD: 105 T: 90QT: 360 QTc: 384 Interpretive StatementsSINUS RHYTHMPOSSIBLE RIGHT VENTRICULAR CONDUCTION DELAY [RSR (QR) IN V1/V2]EARLY REPOLARIZATION [ST ELEVATION WITH NORMALLY INFLECTED T- WAVE]Electronically Signed On 01-17-2022 13:02:30 CDT by [facility] Healthrobert HappyshopbakariRevverCompaPaul [place] [address]JitkrqURH7152-85-65 21:23:2512 LEAD EKG FOR [facility] Test Date: 0048-42-35Klg Name: DORA MCNEILL Department: 5520Patient ID: [id number] Room: 9I55Ubnwxl: 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1970 Requested By: KARIN BASSETT AOrder Number: [id number] Reading MD: Chiara Calles MeasurementsIntervals [place] Rate: 72 P: 90PR:157 QRS: 87QRSD: 105 T: 90QT: 360 QTc: 384 Interpretive StatementsSINUS RHYTHMPOSSIBLE RIGHT VENTRICULAR CONDUCTION DELAY [RSR (QR) IN V1/V2]EARLY REPOLARIZATION [ST ELEVATION WITH NORMALLY INFLECTED T- WAVE]Electronically Signed On 01-17-2022 13:02:30 CDT by [facility] Healthrobert [place] 536272-05-26 21:23:2512 LEAD EKG FOR [facility] Test Date: 4870-52-42Mlv Name: DORA MCNEILL Department: 5520Patient ID: [id number] Room: 2M85Rtodvk: 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1970 Requested By: KARIN BASSETT AOrder Number: [id number] Reading MD: Chiara Calles MeasurementsIntervals [place] Rate: 72 P: 90PR: 157 QRS: 87QRSD: 105 T: 90QT: 360 QTc: 384 Interpretive StatementsSINUS RHYTHMPOSSIBLE RIGHT VENTRICULAR CONDUCTION DELAY [RSR (QR) IN V1/V2]EARLY REPOLARIZATION [ST ELEVATION WITH NORMALLY INFLECTED T- WAVE]Electronically Signed On 01-17-2022 13:02:30 CDT by [place] 83952022-05-26 21:23:2512 LEAD EKG FOR [facility] Test Date: 5401-95-00Mig Name: DORA MCNEILL Department: 5520Patient ID: [id number] Room: 2P76Gqwypn: 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1970 Requested By: KARIN BASSETT AOrder Number: [id number] Reading MD: Chiara Calles MeasurementsIntervals [place] Rate: 72 P: 90PR:157 QRS: 87QRSD: 105 T: 90QT: 360 QTc: 384 Interpretive StatementsSINUS RHYTHMPOSSIBLE RIGHT VENTRICULAR CONDUCTION DELAY [RSR (QR) IN V1/V2]EARLY REPOLARIZATION [ST ELEVATION WITH NORMALLY INFLECTED T- WAVE]Electronically Signed On 01-17-2022 13:02:30 CDT by [place] 858642-05-26 21:23:2512 LEAD EKG FOR [facility] Test Date: 7801-52-71Cyx Name: DORA MCNEILL Department: 5520Patient ID: [id number] Room: 0D13Abccrv: 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1970 Requested By: KARIN BASSETT AOrder Number: [id number] Reading MD: Chiara Calles MeasurementsIntervals [place] Rate: 72 P: 90PR:157 QRS: 87QRSD: 105 T: 90QT: 360 QTc: 384 Interpretive StatementsSINUS RHYTHMPOSSIBLE RIGHT VENTRICULAR CONDUCTION DELAY [RSR (QR) IN V1/V2]EARLY REPOLARIZATION [ST ELEVATION WITH NORMALLY INFLECTEDT- WAVE]Electronically Signed On 01-17-2022 13:02:30 CDT by [facility] ExchangeryCharles [place] [address]OtoykpYZH1348-44-11 21:23:2512 LEAD EKG FOR [facility] Test Date: 1495-83-65Kbm Name: DORA SAINT INIGOES Department: 5520Patient ID: [id number] Room: 0I85Akjjnb: 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1970 Requested By: KARIN BASSETT AOrder Number: [id number] Reading MD: Chiara Calles MeasurementsIntervals [place] Rate: 72 P: 90PR: 157 QRS: 87QRSD: 105 T: 90QT: 360 QTc: 384 Interpretive StatementsSINUS RHYTHMPOSSIBLE RIGHT VENTRICULAR CONDUCTION DELAY [RSR (QR) IN V1/V2]EARLY REPOLARIZATION [ST ELEVATION WITH NORMALLY INFLECTED T- WAVE]Electronically Signed On 01-17-2022 13:02:30 CDT by [facility] ArkansasPurkinjeLkoxhfPFA5044-73-54 21:23:2512 LEAD EKG FOR [facility] Test Date: 3078-35-07Uiv Name: DORA SAINT INIGOES Department: 5520Patient ID: [id number] Room: 1F49Fomsxt: 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1970 Requested By: JESSICA AOrder Number: [id number] Reading MD: Chiara Calles MeasurementsIntervals [place] Rate: 72 P: 90PR:157 QRS: 87QRSD: 105 T: 90QT: 360 QTc: 384 Interpretive StatementsSINUS RHYTHMPOSSIBLE RIGHT VENTRICULAR CONDUCTION DELAY [RSR (QR) IN V1/V2]EARLY REPOLARIZATION [ST ELEVATION WITH NORMALLY INFLECTED T- WAVE]Electronically Signed On 01-17-2022 13:02:30 CDT by [facility] ExchangeryCanoga [place] XnnnvkWHT6501-52-82 21:23:2512 LEAD EKG FOR [facility] Test Date: 1151-65-45Qnh Name: DORA MCNEILL Department: 5520Patient ID: [id number] Room: 6B96Zxegys: 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1970 Requested By: KARIN BASSETT AOrder Number: [id number] Reading MD: Chiara Calles MeasurementsIntervals [place] Rate: 72 P: 90PR: 157 QRS: 87QRSD: 105 T: 90QT: 360 QTc: 384 Interpretive StatementsSINUS RHYTHMPOSSIBLE RIGHT VENTRICULAR CONDUCTION DELAY [RSR (QR) IN V1/V2]EARLY REPOLARIZATION [ST ELEVATION WITH NORMALLY INFLECTEDT- WAVE]Electronically Signed On 01-17-2022 13:02:30 CDT by [facility] ArkansasTeaman & Company PyeqssIAT7331-29-46 21:23:2512 LEAD EKG FOR [facility] Test Date: 3655-90-81Jcx Name: DORA MCNEILL Department: 5520Patient ID: [id number] Room: 5Y74Dlitlh: 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1970 Requested By: KARIN BASSETT AOrder Number: [id number] Reading MD: Chiara Calles MeasurementsIntervals [place] Rate: 72 P: 90PR: 157 QRS: 87QRSD: 105 T: 90QT: 360 QTc: 384 Interpretive StatementsSINUS RHYTHMPOSSIBLE RIGHT VENTRICULAR CONDUCTION DELAY [RSR (QR) IN V1/V2]EARLY REPOLARIZATION [ST ELEVATION WITH NORMALLY INFLECTED T- WAVE]Electronically Signed On 01-17-2022 13:02:30 CDT by [facility] CommunicationsMer[facility] ArkansasTeaman & Company NajehnRRV3518-33-51 21:23:2512 LEAD EKG FOR [facility] Test Date: 4866-74-51Kju Name: DORA PAEZRY Department: 5520Patient ID: [id number] Room: 6T78Wxvmcf: 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1970 Requested By: KARIN BASSETT AOrder Number: [id number] Reading MD: Chiara Calles MeasurementsIntervals [place] Rate: 72 P: 90PR:157 QRS: 87QRSD: 105 T: 90QT: 360 QTc: 384 Interpretive StatementsSINUS RHYTHMPOSSIBLE RIGHT VENTRICULAR CONDUCTION DELAY [RSR (QR) IN V1/V2]EARLY REPOLARIZATION [ST ELEVATION WITH NORMALLY INFLECTED T- WAVE]Electronically Signed On 01-17-2022 13:02:30 CDT by [facility] HospitalCentral Security GroupBrad Ville 76783022-05-26 21:23:2512 LEAD EKG FOR [facility] Test Date: 9890-12-23Nji Name: DORA MCNEILL Department: 5520Patient ID: [id number] Room: 9V31Bmvxmo: 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1970 Requested By: KARIN BASSETT AOrder Number: [id number] Reading MD: Chiara Calles MeasurementsIntervals [place] Rate: 72 P: 90PR: 157 QRS: 87QRSD: 105 T: 90QT: 360 QTc: 384 Interpretive StatementsSINUS RHYTHMPOSSIBLE RIGHT VENTRICULAR CONDUCTION DELAY [RSR (QR) IN V1/V2]EARLY REPOLARIZATION [ST ELEVATION WITH NORMALLY INFLECTED T- WAVE]Electronically Signed On 01-17-2022 13:02:30 CDT by [facility] ExchangeryCharles [place] [address]QieuvzCIE9403-65-52 21:23:2512 LEAD EKG FOR [facility] Test Date: 6199-10-69Ecn Name: DORA MCNEILL Department: 5520Patient ID: [id number] Room: 7V99Taviqe: 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1970 Requested By: KARIN BASSETT AOrder Number: [id number] Reading MD: Chiara Calles MeasurementsIntervals [place] Rate: 72 P: 90PR:157 QRS: 87QRSD: 105 T: 90QT: 360 QTc: 384 Interpretive StatementsSINUS RHYTHMPOSSIBLE RIGHT VENTRICULAR CONDUCTION DELAY [RSR (QR) IN V1/V2]EARLY REPOLARIZATION [ST ELEVATION WITH NORMALLY INFLECTED T- WAVE]Electronically Signed On 01-17-2022 13:02:30 CDT by [facility] InventbuyBrad [place] 76783022-05-26 21:23:2512 LEAD EKG FOR [facility] Test Date: 5773-77-44Avp Name: DORA PAEZRY Department: 5520Patient ID: [id number] Room: 4I42Qhasqm: 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1970 Requested By: KARIN BASSETT AOrder Number: [id number] Reading MD: Chiara Calles MeasurementsIntervals [place] Rate: 72 P: 90PR: 157 QRS: 87QRSD: 105 T: 90QT: 360 QTc: 384 Interpretive StatementsSINUS RHYTHMPOSSIBLE RIGHT VENTRICULAR CONDUCTION DELAY [RSR (QR) IN V1/V2]EARLY REPOLARIZATION [ST ELEVATION WITH NORMALLY INFLECTED T- WAVE]Electronically Signed On 01-17-2022 13:02:30 CDT by Humble BundlePaul [place] [address]LrqbclRRB3984-40-92 21:23:2512 LEAD EKG FOR [facility] Test Date: 7862-85-88Tdg Name: DORA MCNEILL Department: 5520Patient ID: [id number] Room: 3G01Jambmd: 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1970 Requested By: KARIN BASSETT AOrder Number: [id number] Reading MD: Chiara Calles MeasurementsIntervals [place] Rate: 72 P: 90PR: 157 QRS: 87QRSD: 105 T: 90QT: 360 QTc: 384 Interpretive StatementsSINUS RHYTHMPOSSIBLE RIGHT VENTRICULAR CONDUCTION DELAY [RSR (QR) IN V1/V2]EARLY REPOLARIZATION [ST ELEVATION WITH NORMALLY INFLECTED T- WAVE]Electronically Signed On 01-17-2022 13:02:30 CDT by Whis[facility] CommunicationsCharles [place] [address]LzhqrmOMS6444-92-88 21:23:2512 LEAD EKG FOR [facility] Test Date: 0380-54-06Okv Name: DORA MCNEILL Department: 5520Patient ID: [id number] Room: 2K83Jlyaln: 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 (test No code = 94219-2) ICU? (test code = No 80429-5) Symptomatic as No defined by CDC? (test code = 11567-1) Employed in No Healthcare? (test code = 74659-4) Resident in a No congregate care setting (including nursing homes, residential care for people with intellectual and developmental disabilities, psychiatric treatment facilities, group homes, board and care homes, homeless care home, foster care or other): (test code = 69592-6) SARS-CoV-2 ORF1ab NOT DETECTED Not Detected INTERPRETA TION: No Resp Ql OLENA+probe detectable levels of (test code = SARS-CoV-2 33663-4) Coronavirus (COVID-19) were present in this patient's [...] SARS-CoV-2 mole cular diagnostic assa y utilizes Accessibility Lift Technician Mediated Amplification ( TMA) technology to r apidly detect the SARS -CoV-2 (COVID-19) viru s from respiratory adriana ples. In accordance with\\XC2A0\\the FDA's guidance docume nt "Policy for Diagnostic Test s for Coronavirus Disease-2019 [facility] the Public Heal Emergency", amalia s test was developed, and its performance characteristics were verified by the [facility] molecular diagn ostics laboratory and is authorized for clinical diagno stic use. \\XC2A0\\Amalia s laboratory is certified under the Clinical Labora tory Improvement Amendments (CLI A) as qualified to [facility] high complexity clinical labora tory testing. [facility] CREATININE POC docked [id number] 13:57:55 Test Item Value Reference Range Interpretation Comments Creatinine POC (test 2.4 mg/dL 0.6-1.3 H Physici an Notified code = 55979161) eGFR (test code = 30 See_Comment L [Automate d message] 44814374) The system [employer] generated this result transmit dain reference range : >=90 mL/min/1.7 3 m2. The reference r meredith was not used to interpret this result as normal/abnormal . eGFR If Am (test 35 See_Comment L [A utomated message] code = 83250845) The system which generated this result transmit dain reference range : >=90 mL/min/1.7 3 m2. The reference r meredith was not used to interpret this result as normal/abnormal . Lab Interpretation (test Abnormal code = 03674-5) [facility] CREATININE POC docked [id number] 13:57:55 Test Item Value Reference Range Interpretation Comments Creatinine POC (test 2.4 mg/dL 0.6-1.3 H Physici an Notified code = 68061610) eGFR (test code = 30 See_Comment L [Automate d message] 12112902) The system [employer] generated this result transmit dain reference range : >=90 mL/min/1.7 3 m2. The reference r meredith was not used to interpret this result as normal/abnormal . eGFR If Am (test 35 See_Comment L [A utomated message] code = 77701099) The system which generated this result transmit dain reference range : >=90 mL/min/1.7 3 m2. The reference r meredith was not used to interpret this result as normal/abnormal . Lab Interpretation (test Abnormal code = 44078-6) [facility] CREATININE POC docked [id number] 13:57:55 Test Item Value Reference Range Interpretation Comments Creatinine POC (test 2.4 mg/dL 0.6-1.3 H Physici an Notified code = 41494983) eGFR (test code = 30 See_Comment L [Automate d message] 59846748) The system [employer] generated this result transmit dain reference range : >=90 mL/min/1.7 3 m2. The reference r meredith was not used to interpret this result as normal/abnormal . eGFR If Am (test 35 See_Comment L [A utomated message] code = 11165149) The system which generated this result transmit dain reference range : >=90 mL/min/1.7 3 m2. The reference r meredith was not used to interpret this result as normal/abnormal . Lab Interpretation (test Abnormal code = 70178-5) [facility] CREATININE POC docked [id number] 13:57:55 Test Item Value Reference Range Interpretation Comments Creatinine POC (test 2.4 mg/dL 0.6-1.3 H Physici an Notified code = 05858583) eGFR (test code = 30 See_Comment L [Automate d message] 73276980) The system [employer] generated this result transmit dain reference range : >=90 mL/min/1.7 3 m2. The reference r meredith was not used to interpret this result as normal/abnormal . eGFR If Am (test 35 See_Comment L [A utomated message] code = 51698236) The system which generated this result transmit dain reference range : >=90 mL/min/1.7 3 m2. The reference r meredith was not used to interpret this result as normal/abnormal . Lab Interpretation (test Abnormal code = 63731-0) [facility] CREATININE POC docked [id number] 13:57:55 Test Item Value Reference Range Interpretation Comments Creatinine POC (test 2.4 mg/dL 0.6-1.3 H Physici an Notified code = 20964175) eGFR (test code = 30 See_Comment L [Automate d message] 58093648) The system [employer] generated this result transmit dain reference range : >=90 mL/min/1.7 3 m2. The reference r meerdith was not used to interpret this result as normal/abnormal . eGFR If Am (test 35 See_Comment L [A utomated message] code = 27507986) The system which generated this result transmit dain reference range : >=90 mL/min/1.7 3 m2. The reference r meredith was not used to interpret this result as normal/abnormal . Lab Interpretation (test Abnormal code = 62269-5) [facility] CREATININE POC docked [id number] 13:57:55 Test Item Value Reference Range Interpretation Comments Creatinine POC (test 2.4 mg/dL 0.6-1.3 H Physici an Notified code = 68551995) eGFR (test code = 30 See_Comment L [Automate d message] 45710648) The system [employer] h generated this result transmit dain reference range : >=90 mL/min/1.7 3 m2. The reference r meredith was not used to interpret this result as normal/abnormal . eGFR If Am (test 35 See_Comment L [A utomated message] code = 35990837) The system which generated this result transmit dain reference range : >=90 mL/min/1.7 3 m2. The reference r meredith was not used to interpret this result as normal/abnormal . Lab Interpretation (test Abnormal code = 52155-6) [facility] CREATININE POC docked [id number] 13:57:55 Test Item Value Reference Range Interpretation Comments Creatinine POC (test 2.4 mg/dL 0.6-1.3 H Physici an Notified code = 53508144) eGFR If non- Am 30 See_Comment L [Aut omated message] (test code = 55064217) The s ystem which generated this result transmit dain reference range : >=90 mL/min/1.7 3 m2. The reference r meredith was not used to interpret this result as normal/abnormal . eGFR If Am (test 35 See_Comment L [A utomated message] code = 72974003) The system which generated this result transmit dain reference range : >=90 mL/min/1.7 3 m2. The reference r meredith was not used to interpret this result as normal/abnormal . Lab Interpretation (test Abnormal code = 58601-6) [facility] CREATININE POC docked [id number] 13:57:55 Test Item Value Reference Range Interpretation Comments Creatinine POC (test 2.4 mg/dL 0.6-1.3 H Physici an Notified code = 49415025) eGFR If non- Am 30 See_Comment L [Aut omated message] (test code = 92662177) The s ystem which generated this result transmit dain reference range : >=90 mL/min/1.7 3 m2. The reference r meredith was not used to interpret this result as normal/abnormal . eGFR If Am (test 35 See_Comment L [A utomated message] code = 22332950) The system which generated this result transmit dain reference range : >=90 mL/min/1.7 3 m2. The reference r meredith was not used to interpret this result as normal/abnormal . Lab Interpretation (test Abnormal code = 78089-4) [facility] CREATININE POC docked [id number] 13:57:55 Test Item Value Reference Range Interpretation Comments Creatinine POC (test 2.4 mg/dL 0.6-1.3 H Physici an Notified code = 83486384) eGFR If non- Am 30 See_Comment L [Aut omated message] (test code = 79936890) The s ystem which generated this result transmit dain reference range : >=90 mL/min/1.7 3 m2. The reference r meredith was not used to interpret this result as normal/abnormal . eGFR If Am (test 35 See_Comment L [A utomated message] code = 22336709) The system which generated this result transmit dain reference range : >=90 mL/min/1.7 3 m2. The reference r meredith was not used to interpret this result as normal/abnormal . Lab Interpretation (test Abnormal code = 49543-9) [facility] CREATININE POC docked [id number] 13:57:55 Test Item Value Reference Range Interpretation Comments Creatinine POC (test 2.4 mg/dL 0.6-1.3 H Physici an Notified code = 70637651) eGFR If non- Am 30 See_Comment L [Aut omated message] (test code = 99324225) The s ystem which generated this result transmit dain reference range : >=90 mL/min/1.7 3 m2. The reference r meredith was not used to interpret this result as normal/abnormal . eGFR If Am (test 35 See_Comment L [A utomated message] code = 74752753) The system which generated this result transmit dain reference range : >=90 mL/min/1.7 3 m2. The reference r meredith was not used to interpret this result as normal/abnormal . Lab Interpretation (test Abnormal code = 73369-5) [facility] CREATININE POC docked [id number] 13:57:55 Test Item Value Reference Range Interpretation Comments Creatinine POC (test 2.4 mg/dL 0.6-1.3 H Physici an Notified code = 45754976) eGFR If non- Am 30 See_Comment L [Aut omated message] (test code = 42866470) The s ystem which generated this result transmit dain reference range : >=90 mL/min/1.7 3 m2. The reference r meredith was not used to interpret this result as normal/abnormal . eGFR If Am (test 35 See_Comment L [A utomated message] code = 35480584) The system which generated this result transmit dain reference range : >=90 mL/min/1.7 3 m2. The reference r meredith was not used to interpret this result as normal/abnormal . Lab Interpretation (test Abnormal code = 63252-9) [facility] CREATININE POC docked [id number] 13:57:55 Test Item Value Reference Range Interpretation Comments Creatinine POC (test 2.4 mg/dL 0.6-1.3 H Physici an Notified code = 26169579) eGFR If non- Am 30 See_Comment L [Aut omated message] (test code = 92151882) The s ystem which generated this result transmit dain reference range : >=90 mL/min/1.7 3 m2. The reference r meredith was not used to interpret this result as normal/abnormal . eGFR If Am (test 35 See_Comment L [A utomated message] code = 57425747) The system which generated this result transmit dain reference range : >=90 mL/min/1.7 3 m2. The reference r meredith was not used to interpret this result as normal/abnormal . Lab Interpretation (test Abnormal code = 38578-4) [facility] CREATININE POC docked [id number] 13:57:55 Test Item Value Reference Range Interpretation Comments Creatinine POC (test 2.4 mg/dL 0.6-1.3 H Physici an Notified code = 80202772) eGFR If non- Am 30 See_Comment L [Aut omated message] (test code = 44690207) The s ystem which generated this result transmit dain reference range : >=90 mL/min/1.7 3 m2. The reference r meredith was not used to interpret this result as normal/abnormal . eGFR If Am (test 35 See_Comment L [A utomated message] code = 23821041) The system which generated this result transmit dain reference range : >=90 mL/min/1.7 3 m2. The reference r meredith was not used to interpret this result as normal/abnormal . Lab Interpretation (test Abnormal code = 62113-7) [facility] CREATININE POC docked [id number] 13:57:55 Test Item Value Reference Range Interpretation Comments Creatinine POC (test 2.4 mg/dL 0.6-1.3 H Physici an Notified code = 97402885) eGFR If non- Am 30 See_Comment L [Aut omated message] (test code = 23262218) The s ystem which generated this result transmit dain reference range : >=90 mL/min/1.7 3 m2. The reference r meredith was not used to interpret this result as normal/abnormal . eGFR If Am (test 35 See_Comment L [A utomated message] code = 71451236) The system which generated this result transmit dain reference range : >=90 mL/min/1.7 3 m2. The reference r meredith was not used to interpret this result as normal/abnormal . Lab Interpretation (test Abnormal code = 13846-2) [facility] CREATININE POC docked [id number] 13:57:55 Test Item Value Reference Range Interpretation Comments Creatinine POC (test 2.4 mg/dL 0.6-1.3 H Physici an Notified code = 45171704) eGFR If non- Am 30 See_Comment L [Aut omated message] (test code = 77440698) The s ystem which generated this result transmit dain reference range : >=90 mL/min/1.7 3 m2. The reference r meredith was not used to interpret this result as normal/abnormal . eGFR If Am (test 35 See_Comment L [A utomated message] code = 72168536) The system which generated this result transmit dain reference range : >=90 mL/min/1.7 3 m2. The reference r meredith was not used to interpret this result as normal/abnormal . Lab Interpretation (test Abnormal code = 48182-2) [facility] [id number] 13:57:55 Test Item Value Reference Range Interpretation Comments Creatinine POC (test 2.4 mg/dL 0.6-1.3 H Physici an Notified code = 94444104) eGFR If non- Am 30 See_Comment L [Aut omated message] (test code = 25786355) The s ystem which generated this result transmit dain reference range : >=90 mL/min/1.7 3 m2. The reference r meredith was not used to interpret this result as normal/abnormal . eGFR If Am (test 35 See_Comment L [A utomated message] code = 27038384) The system which generated this result transmit dain reference range : >=90 mL/min/1.7 3 m2. The reference r meredith was not used to interpret this result as normal/abnormal . Lab Interpretation (test Abnormal code = 70585-1) [facility] CREATININE POC docked [id number] 13:57:55 Test Item Value Reference Range Interpretation Comments Creatinine POC (test 2.4 mg/dL 0.6-1.3 H Physici an Notified code = 49681468) eGFR If non- Am 30 See_Comment L [Aut omated message] (test code = 20818180) The s ystem which generated this result transmit dain reference range : >=90 mL/min/1.7 3 m2. The reference r meredith was not used to interpret this result as normal/abnormal . eGFR If Am (test 35 See_Comment L [A utomated message] code = 92741376) The system which generated this result transmit dain reference range : >=90 mL/min/1.7 3 m2. The reference r meredith was not used to interpret this result as normal/abnormal . Lab Interpretation (test Abnormal code = 46287-3) [facility] [id number] 13:57:55 Test Item Value Reference Range Interpretation Comments Creatinine POC (test 2.4 mg/dL 0.6-1.3 H Physici an Notified code = 38499868) eGFR If non- Am 30 See_Comment L [Aut omated message] (test code = 79744619) The s ystem which generated this result transmit dain reference range : >=90 mL/min/1.7 3 m2. The reference r meredith was not used to interpret this result as normal/abnormal . eGFR If Am (test 35 See_Comment L [A utomated message] code = 70987156) The system which generated this result transmit dain reference range : >=90 mL/min/1.7 3 m2. The reference r meredith was not used to interpret this result as normal/abnormal . Lab Interpretation (test Abnormal code = 58366-0) [facility] CREATININE POC docked [id number] 13:57:55 Test Item Value Reference Range Interpretation Comments Creatinine POC (test 2.4 mg/dL 0.6-1.3 H Physici an Notified code = 39423511) eGFR If non- Am 30 See_Comment L [Aut omated message] (test code = 50950816) The s ystem which generated this result transmit dain reference range : >=90 mL/min/1.7 3 m2. The reference r meredith was not used to interpret this result as normal/abnormal . eGFR If Am (test 35 See_Comment L [A utomated message] code = 11498049) The system which generated this result transmit dain reference range : >=90 mL/min/1.7 3 m2. The reference r meredith was not used to interpret this result as normal/abnormal . Lab Interpretation (test Abnormal code = 07036-7) [facility] CREATININE POC docked [id number] 13:57:55 Test Item Value Reference Range Interpretation Comments Creatinine POC (test 2.4 mg/dL 0.6-1.3 H Physici an Notified code = 28918060) eGFR If non- Am 30 See_Comment L [Aut omated message] (test code = 96539178) The s ystem which generated this result transmit dain reference range : >=90 mL/min/1.7 3 m2. The reference r meredith was not used to interpret this result as normal/abnormal . eGFR If Am (test 35 See_Comment L [A utomated message] code = 37820558) The system which generated this result transmit dain reference range : >=90 mL/min/1.7 3 m2. The reference r meredith was not used to interpret this result as normal/abnormal . Lab Interpretation (test Abnormal code = 21343-8) [facility] CREATININE POC docked [id number] 13:57:55 Test Item Value Reference Range Interpretation Comments Creatinine POC (test 2.4 mg/dL 0.6-1.3 H Physici an Notified code = 73963430) eGFR If non- Am 30 See_Comment L [Aut omated message] (test code = 38612543) The s ystem which generated this result transmit dain reference range : >=90 mL/min/1.7 3 m2. The reference r meredith was not used to interpret this result as normal/abnormal . eGFR If Am (test 35 See_Comment L [A utomated message] code = 10908963) The system which generated this result transmit dain reference range : >=90 mL/min/1.7 3 m2. The reference r meredith was not used to interpret this result as normal/abnormal . Lab Interpretation (test Abnormal code = 51319-5) [facility] CREATININE POC docked [id number] 13:57:55 Test Item Value Reference Range Interpretation Comments Creatinine POC (test 2.4 mg/dL 0.6-1.3 H Physici an Notified code = 56100014) eGFR (test code = 30 See_Comment L [Automate d message] 77619400) The system whic h generated this result transmit dain reference range : >=90 mL/min/1.7 3 m2. The reference r meredith was not used to interpret this result as normal/abnormal . eGFR If Am (test 35 See_Comment L [A utomated message] code = 04252880) The system which generated this result transmit dain reference range : >=90 mL/min/1.7 3 m2. The reference r meredith was not used to interpret this result as normal/abnormal . Lab Interpretation (test Abnormal code = 93431-3) [facility] CREATININE POC docked [id number] 13:57:55 Test Item Value Reference Range Interpretation Comments Creatinine POC (test 2.4 mg/dL 0.6-1.3 H Physici an Notified code = 41231118) eGFR (test code = 30 See_Comment L [Automate d message] 98324265) The system whic h generated this result transmit dain reference range : >=90 mL/min/1.7 3 m2. The reference r meredith was not used to interpret this result as normal/abnormal . eGFR If Am (test 35 See_Comment L [A utomated message] code = 64092296) The system which generated this result transmit dain reference range : >=90 mL/min/1.7 3 m2. The reference r meredith was not used to interpret this result as normal/abnormal . Lab Interpretation (test Abnormal code = 58518-4) [facility] POC docked [id number] 13:48:46 Test Item Value Reference Range Interpretation Comments Sodium POC (test code = 126 mmol/L 136-145 L 79795238) Potassium POC (test code 4.4 mmol/L 3.5-5.1 = 34261633) Chloride POC (test code 100 mmol/L 98-107 = 40985015) TCO2 POC (test code = 17 mmol/L 21-32 L Physic aylin Notified 02403741) Urea Nitrogen POC (test 36 mg/dL 7-18 H code = 74948448) Glucose POC (test code = 114 mg/dL 74-106 H 37060283) Hemoglobin POC (test 11.9 g/dL 12-16 L code = 70606643) Hematocrit POC (test 35.0 % 37.0-47.0 L code = 30816937) Lab Interpretation (test Abnormal code = 52661-5) [facility] POC docked [id number] 13:48:46 Test Item Value Reference Range Interpretation Comments Sodium POC (test code = 126 mmol/L 136-145 L 26478212) Potassium POC (test code 4.4 mmol/L 3.5-5.1 = 54015838) Chloride POC (test code 100 mmol/L 98-107 = 93626662) TCO2 POC (test code = 17 mmol/L 21-32 L Physic aylin Notified 17766383) Urea Nitrogen POC (test 36 mg/dL 7-18 H code = 14518541) Glucose POC (test code = 114 mg/dL 74-106 H 56848755) Hemoglobin POC (test 11.9 g/dL 12-16 L code = 56223162) Hematocrit POC (test 35.0 % 37.0-47.0 L code = 48979269) Lab Interpretation (test Abnormal code = 55183-1) [facility] POC docked [id number] 13:48:46 Test Item Value Reference Range Interpretation Comments Sodium POC (test code = 126 mmol/L 136-145 L 29016148) Potassium POC (test code 4.4 mmol/L 3.5-5.1 = 59965141) Chloride POC (test code 100 mmol/L 98-107 = 04383609) TCO2 POC (test code = 17 mmol/L 21-32 L Physic aylin Notified 59879331) Urea Nitrogen POC (test 36 mg/dL 7-18 H code = 63856437) Glucose POC (test code = 114 mg/dL 74-106 H 08538374) Hemoglobin POC (test 11.9 g/dL 12-16 L code = 59892778) Hematocrit POC (test 35.0 % 37.0-47.0 L code = 34917969) Lab Interpretation (test Abnormal code = 19514-3) [facility] POC docked [id number] 13:48:46 Test Item Value Reference Range Interpretation Comments Sodium POC (test code = 126 mmol/L 136-145 L 05324593) Potassium POC (test code 4.4 mmol/L 3.5-5.1 = 57364179) Chloride POC (test code 100 mmol/L 98-107 = 40416874) TCO2 POC (test code = 17 mmol/L 21-32 L Physic aylin Notified 57929257) Urea Nitrogen POC (test 36 mg/dL 7-18 H code = 55307534) Glucose POC (test code = 114 mg/dL 74-106 H 75476354) Hemoglobin POC (test 11.9 g/dL 12-16 L code = 70493626) Hematocrit POC (test 35.0 % 37.0-47.0 L code = 88432263) Lab Interpretation (test Abnormal code = 57361-3) [facility] POC docked [id number] 13:48:46 Test Item Value Reference Range Interpretation Comments Sodium POC (test code = 126 mmol/L 136-145 L 71103862) Potassium POC (test code 4.4 mmol/L 3.5-5.1 = 92015653) Chloride POC (test code 100 mmol/L 98-107 = 15745935) TCO2 POC (test code = 17 mmol/L 21-32 L Physic aylin Notified 63220389) Urea Nitrogen POC (test 36 mg/dL 7-18 H code = 56313945) Glucose POC (test code = 114 mg/dL 74-106 H 17240754) Hemoglobin POC (test 11.9 g/dL 12-16 L code = 91342956) Hematocrit POC (test 35.0 % 37.0-47.0 L code = 30974760) Lab Interpretation (test Abnormal code = 18433-4) [facility] POC docked [id number] 13:48:46 Test Item Value Reference Range Interpretation Comments Sodium POC (test code = 126 mmol/L 136-145 L 26253576) Potassium POC (test code 4.4 mmol/L 3.5-5.1 = 55507942) Chloride POC (test code 100 mmol/L 98-107 = 71380221) TCO2 POC (test code = 17 mmol/L 21-32 L Physic aylin Notified 92941217) Urea Nitrogen POC (test 36 mg/dL 7-18 H code = 09713336) Glucose POC (test code = 114 mg/dL 74-106 H 34256951) Hemoglobin POC (test 11.9 g/dL 12-16 L code = 73520031) Hematocrit POC (test 35.0 % 37.0-47.0 L code = 06342602) Lab Interpretation (test Abnormal code = 66976-4) [facility] POC docked [id number] 13:48:46 Test Item Value Reference Range Interpretation Comments Sodium POC (test code = 126 mmol/L 136-145 L 24652506) Potassium POC (test code 4.4 mmol/L 3.5-5.1 = 01167526) Chloride POC (test code 100 mmol/L 98-107 = 97382860) TCO2 POC (test code = 17 mmol/L 21-32 L Physic aylin Notified 78116672) Urea Nitrogen POC (test 36 mg/dL 7-18 H code = 99545586) Glucose POC (test code = 114 mg/dL 74-106 H 04449811) Hemoglobin POC (test 11.9 g/dL 12-16 L code = 59339833) Hematocrit POC (test 35.0 % 37.0-47.0 L code = 15785859) Lab Interpretation (test Abnormal code = 88008-3) [facility] POC docked [id number] 13:48:46 Test Item Value Reference Range Interpretation Comments Sodium POC (test code = 126 mmol/L 136-145 L 39653171) Potassium POC (test code 4.4 mmol/L 3.5-5.1 = 78707118) Chloride POC (test code 100 mmol/L 98-107 = 86941940) TCO2 POC (test code = 17 mmol/L 21-32 L Physic aylin Notified 04258795) Urea Nitrogen POC (test 36 mg/dL 7-18 H code = 84542490) Glucose POC (test code = 114 mg/dL 74-106 H 82076068) Hemoglobin POC (test 11.9 g/dL 12-16 L code = 94678203) Hematocrit POC (test 35.0 % 37.0-47.0 L code = 48018680) Lab Interpretation (test Abnormal code = 21166-0) [facility] POC docked [id number] 13:48:46 Test Item Value Reference Range Interpretation Comments Sodium POC (test code = 126 mmol/L 136-145 L 51407694) Potassium POC (test code 4.4 mmol/L 3.5-5.1 = 84983843) Chloride POC (test code 100 mmol/L 98-107 = 66234805) TCO2 POC (test code = 17 mmol/L 21-32 L Physic aylin Notified 53482689) Urea Nitrogen POC (test 36 mg/dL 7-18 H code = 51912237) Glucose POC (test code = 114 mg/dL 74-106 H 34447343) Hemoglobin POC (test 11.9 g/dL 12-16 L code = 69859079) Hematocrit POC (test 35.0 % 37.0-47.0 L code = 54447620) Lab Interpretation (test Abnormal code = 34886-4) [facility] POC docked [id number] 13:48:46 Test Item Value Reference Range Interpretation Comments Sodium POC (test code = 126 mmol/L 136-145 L 79816199) Potassium POC (test code 4.4 mmol/L 3.5-5.1 = 83799346) Chloride POC (test code 100 mmol/L 98-107 = 17469519) TCO2 POC (test code = 17 mmol/L 21-32 L Physic aylin Notified 46274443) Urea Nitrogen POC (test 36 mg/dL 7-18 H code = 30367794) Glucose POC (test code = 114 mg/dL 74-106 H 29642672) Hemoglobin POC (test 11.9 g/dL 12-16 L code = 12216669) Hematocrit POC (test 35.0 % 37.0-47.0 L code = 77107795) Lab Interpretation (test Abnormal code = 40912-1) [facility] POC docked [id number] 13:48:46 Test Item Value Reference Range Interpretation Comments Sodium POC (test code = 126 mmol/L 136-145 L 00535612) Potassium POC (test code 4.4 mmol/L 3.5-5.1 = 64852120) Chloride POC (test code 100 mmol/L 98-107 = 83853999) TCO2 POC (test code = 17 mmol/L 21-32 L Physic aylin Notified 52246892) Urea Nitrogen POC (test 36 mg/dL 7-18 H code = 66836321) Glucose POC (test code = 114 mg/dL 74-106 H 28174082) Hemoglobin POC (test 11.9 g/dL 12-16 L code = 63899239) Hematocrit POC (test 35.0 % 37.0-47.0 L code = 53220038) Lab Interpretation (test Abnormal code = 04997-0) [facility] POC docked [id number] 13:48:46 Test Item Value Reference Range Interpretation Comments Sodium POC (test code = 126 mmol/L 136-145 L 63321365) Potassium POC (test code 4.4 mmol/L 3.5-5.1 = 84977603) Chloride POC (test code 100 mmol/L 98-107 = 26578071) TCO2 POC (test code = 17 mmol/L 21-32 L Physic aylin Notified 86610353) Urea Nitrogen POC (test 36 mg/dL 7-18 H code = 02505094) Glucose POC (test code = 114 mg/dL 74-106 H 40112999) Hemoglobin POC (test 11.9 g/dL 12-16 L code = 80707098) Hematocrit POC (test 35.0 % 37.0-47.0 L code = 99110049) Lab Interpretation (test Abnormal code = 63232-2) [facility] POC docked [id number] 13:48:46 Test Item Value Reference Range Interpretation Comments Sodium POC (test code = 126 mmol/L 136-145 L 16355044) Potassium POC (test code 4.4 mmol/L 3.5-5.1 = 82404287) Chloride POC (test code 100 mmol/L 98-107 = 42651081) TCO2 POC (test code = 17 mmol/L 21-32 L Physic aylin Notified 65765584) Urea Nitrogen POC (test 36 mg/dL 7-18 H code = 80569850) Glucose POC (test code = 114 mg/dL 74-106 H 03976119) Hemoglobin POC (test 11.9 g/dL 12-16 L code = 70926569) Hematocrit POC (test 35.0 % 37.0-47.0 L code = 71562316) Lab Interpretation (test Abnormal code = 21463-1) [facility] POC docked [id number] 13:48:46 Test Item Value Reference Range Interpretation Comments Sodium POC (test code = 126 mmol/L 136-145 L 49374057) Potassium POC (test code 4.4 mmol/L 3.5-5.1 = 78532193) Chloride POC (test code 100 mmol/L 98-107 = 28301368) TCO2 POC (test code = 17 mmol/L 21-32 L Physic aylin Notified 09683010) Urea Nitrogen POC (test 36 mg/dL 7-18 H code = 26958687) Glucose POC (test code = 114 mg/dL 74-106 H 80366707) Hemoglobin POC (test 11.9 g/dL 12-16 L code = 91068683) Hematocrit POC (test 35.0 % 37.0-47.0 L code = 59393467) Lab Interpretation (test Abnormal code = 17481-0) [facility] POC docked [id number] 13:48:46 Test Item Value Reference Range Interpretation Comments Sodium POC (test code = 126 mmol/L 136-145 L 04890841) Potassium POC (test code 4.4 mmol/L 3.5-5.1 = 42488882) Chloride POC (test code 100 mmol/L 98-107 = 59760544) TCO2 POC (test code = 17 mmol/L 21-32 L Physic aylin Notified 29163587) Urea Nitrogen POC (test 36 mg/dL 7-18 H code = 94605582) Glucose POC (test code = 114 mg/dL 74-106 H 34980537) Hemoglobin POC (test 11.9 g/dL 12-16 L code = 98351368) Hematocrit POC (test 35.0 % 37.0-47.0 L code = 63386545) Lab Interpretation (test Abnormal code = 85912-2) [facility] POC docked [id number] 13:48:46 Test Item Value Reference Range Interpretation Comments Sodium POC (test code = 126 mmol/L 136-145 L 68270215) Potassium POC (test code 4.4 mmol/L 3.5-5.1 = 11813581) Chloride POC (test code 100 mmol/L 98-107 = 75252878) TCO2 POC (test code = 17 mmol/L 21-32 L Physic aylin Notified 64023957) Urea Nitrogen POC (test 36 mg/dL 7-18 H code = 80766073) Glucose POC (test code = 114 mg/dL 74-106 H 77049448) Hemoglobin POC (test 11.9 g/dL 12-16 L code = 51859996) Hematocrit POC (test 35.0 % 37.0-47.0 L code = 59578228) Lab Interpretation (test Abnormal code = 22523-0) [facility] POC docked [id number] 13:48:46 Test Item Value Reference Range Interpretation Comments Sodium POC (test code = 126 mmol/L 136-145 L 39012310) Potassium POC (test code 4.4 mmol/L 3.5-5.1 = 59394436) Chloride POC (test code 100 mmol/L 98-107 = 48009076) TCO2 POC (test code = 17 mmol/L 21-32 L Physic aylin Notified 27873706) Urea Nitrogen POC (test 36 mg/dL 7-18 H code = 13409926) Glucose POC (test code = 114 mg/dL 74-106 H 41848342) Hemoglobin POC (test 11.9 g/dL 12-16 L code = 61501742) Hematocrit POC (test 35.0 % 37.0-47.0 L code = 14160546) Lab Interpretation (test Abnormal code = 13724-1) [facility] POC docked [id number] 13:48:46 Test Item Value Reference Range Interpretation Comments Sodium POC (test code = 126 mmol/L 136-145 L 32785051) Potassium POC (test code 4.4 mmol/L 3.5-5.1 = 02528068) Chloride POC (test code 100 mmol/L 98-107 = 53388398) TCO2 POC (test code = 17 mmol/L 21-32 L Physic aylin Notified 15473540) Urea Nitrogen POC (test 36 mg/dL 7-18 H code = 44149077) Glucose POC (test code = 114 mg/dL 74-106 H 30584717) Hemoglobin POC (test 11.9 g/dL 12-16 L code = 01059349) Hematocrit POC (test 35.0 % 37.0-47.0 L code = 74061317) Lab Interpretation (test Abnormal code = 26863-7) [facility] POC docked [id number] 13:48:46 Test Item Value Reference Range Interpretation Comments Sodium POC (test code = 126 mmol/L 136-145 L 67307444) Potassium POC (test code 4.4 mmol/L 3.5-5.1 = 44775104) Chloride POC (test code 100 mmol/L 98-107 = 66300740) TCO2 POC (test code = 17 mmol/L 21-32 L Physic aylin Notified 34917634) Urea Nitrogen POC (test 36 mg/dL 7-18 H code = 78178579) Glucose POC (test code = 114 mg/dL 74-106 H 24865142) Hemoglobin POC (test 11.9 g/dL 12-16 L code = 71497025) Hematocrit POC (test 35.0 % 37.0-47.0 L code = 68403913) Lab Interpretation (test Abnormal code = 08663-2) [facility] POC docked [id number] 13:48:46 Test Item Value Reference Range Interpretation Comments Sodium POC (test code = 126 mmol/L 136-145 L 34606185) Potassium POC (test code 4.4 mmol/L 3.5-5.1 = 86680050) Chloride POC (test code 100 mmol/L 98-107 = 34743311) TCO2 POC (test code = 17 mmol/L 21-32 L Physic aylin Notified 51242982) Urea Nitrogen POC (test 36 mg/dL 7-18 H code = 89758658) Glucose POC (test code = 114 mg/dL 74-106 H 15840093) Hemoglobin POC (test 11.9 g/dL 12-16 L code = 93404034) Hematocrit POC (test 35.0 % 37.0-47.0 L code = 21118297) Lab Interpretation (test Abnormal code = 03986-9) [facility] POC docked [id number] 13:48:46 Test Item Value Reference Range Interpretation Comments Sodium POC (test code = 126 mmol/L 136-145 L 95306080) Potassium POC (test code 4.4 mmol/L 3.5-5.1 = 89651142) Chloride POC (test code 100 mmol/L 98-107 = 33585164) TCO2 POC (test code = 17 mmol/L 21-32 L Physic aylin Notified 07342524) Urea Nitrogen POC (test 36 mg/dL 7-18 H code = 61846520) Glucose POC (test code = 114 mg/dL 74-106 H 35390698) Hemoglobin POC (test 11.9 g/dL 12-16 L code = 69057373) Hematocrit POC (test 35.0 % 37.0-47.0 L code = 37466680) Lab Interpretation (test Abnormal code = 06180-1) [facility] POC docked [id number] 13:48:46 Test Item Value Reference Range Interpretation Comments Sodium POC (test code = 126 mmol/L 136-145 L 55086715) Potassium POC (test code 4.4 mmol/L 3.5-5.1 = 40303992) Chloride POC (test code 100 mmol/L 98-107 = 55968521) TCO2 POC (test code = 17 mmol/L 21-32 L Physic aylin Notified 91064845) Urea Nitrogen POC (test 36 mg/dL 7-18 H code = 15752905) Glucose POC (test code = 114 mg/dL 74-106 H 62574850) Hemoglobin POC (test 11.9 g/dL 12-16 L code = 10211417) Hematocrit POC (test 35.0 % 37.0-47.0 L code = 83326912) Lab Interpretation (test Abnormal code = 54225-6) [facility] POC docked [id number] 13:48:46 Test Item Value Reference Range Interpretation Comments Sodium POC (test code = 126 mmol/L 136-145 L 96743671) Potassium POC (test code 4.4 mmol/L 3.5-5.1 = 28808825) Chloride POC (test code 100 mmol/L 98-107 = 85301228) TCO2 POC (test code = 17 mmol/L 21-32 L Physic aylin Notified 00114497) Urea Nitrogen POC (test 36 mg/dL 7-18 H code = 42507834) Glucose POC (test code = 114 mg/dL 74-106 H 97222927) Hemoglobin POC (test 11.9 g/dL 12-16 L code = 54780924) Hematocrit POC (test 35.0 % 37.0-47.0 L code = 53873270) Lab Interpretation (test Abnormal code = 49579-7) [facility]-CoV-2 ORF1ab Resp Ql OLENA+[id number] 20:25:16 Test Item Value Reference Range Interpretation Comments Hospitalized? (test No code = 42195-6) ICU? (test code = No 80807-7) Symptomatic as No defined by CDC? (test code = 08053-2) Employed in No Healthcare? (test code = 21850-4) Resident in a No congregate care setting (including nursing homes, residential care for people with intellectual and developmental disabilities, psychiatric treatment facilities, group homes, board and care homes, homeless care home, foster care or other): (test code = 22931-4) SARS-CoV-2 ORF1ab NOT DETECTED Not Detected INTERPRETA TION: No Resp Ql OLENA+probe detectable levels of (test code = SARS-CoV-2 67235-6) Coronavirus (COVID-19) were present in this patient's [...] SARS-CoV-2 mole cular diagnostic assa y utilizes Accessibility Lift Technician Mediated Amplification ( TMA) technology to r apidly detect the SARS -CoV-2 (COVID-19) viru s from respiratory adriana ples. In accordance with\\XC2A0\\the FDA's guidance docume nt "Policy for Diagnostic Test s for Coronavirus Disease-2019 [facility] the [facility]", amalia s test was developed, and its performance characteristics were verified by the [facility] molecular diagn ostics laboratory and is authorized for clinical diagno stic use. \\XC2A0\\Amalia s laboratory is certified under the Clinical Labora tory Improvement Amendments (CLI A) as qualified to pe rform high complexity clinical labora tory testing. [facility] POC docked [id number] 11:16:15 Test Item Value Reference Range Interpretation Comments pH, Pankaj POC (test code 7.32 7.33-7.43 L = 97416406) pCO2,Pankaj POC (test code 31.0 See_Comment L [Au tomated = 03557036) message] The sy stem which generated this result transmitted reference range : 38 - 50 mmHg. The reference range was not used to interpret this result as normal/abnormal . PO2, Venous POC (BKR) 44 See_Comment L [Auto mated (test code = 03522091) VB Rags] The system which generated this result transmitted reference range : 50 - 75 mm Hg. The reference range was not used to interpret this result as normal/abnormal . Ionized Calcium POC 1.24 mmol/L 1.15-1.29 (test code = 65777575) HCO3, Pankaj POC (test 16 mmol/L 22-26 L code = 59307842) TCO2 POC (test code = 17 mmol/L 21-32 L 84825152) Base Deficit, Pankaj POC -9 (test code = 70122488) Sample Type (test code IVFLORENCE Physi erik Notified = 37286339) % Sat, Pankaj POC (test 77 % code = 64381204) Lab Interpretation Abnormal (test code = 63347-5) [facility] POC docked [id number] 11:16:15 Test Item Value Reference Range Interpretation Comments pH, Pankaj POC (test code 7.32 7.33-7.43 L = 22132320) pCO2,Panakj POC (test code 31.0 See_Comment L [Au tomated = 74104549) message] The sy stem which generated this result transmitted reference range : 38 - 50 mmHg. The reference range was not used to interpret this result as normal/abnormal . PO2, Venous POC (BKR) 44 See_Comment L [Auto mated (test code = 55516356) VB Rags] The system which generated this result transmitted reference range : 50 - 75 mm Hg. The reference range was not used to interpret this result as normal/abnormal . Ionized Calcium POC 1.24 mmol/L 1.15-1.29 (test code = 00660019) HCO3, Pankaj POC (test 16 mmol/L 22-26 L code = 89379149) TCO2 POC (test code = 17 mmol/L 21-32 L 22370153) Base Deficit, Pankaj POC -9 (test code = 58798651) Sample Type (test code IVFLORENCE Physi erik Notified = 65588025) % Sat, Pankaj POC (test 77 % code = 45159798) Lab Interpretation Abnormal (test code = 29924-4) [facility] POC docked [id number] 11:16:15 Test Item Value Reference Range Interpretation Comments pH, Pankaj POC (test code 7.32 7.33-7.43 L = 90497422) pCO2,Pankaj POC (test code 31.0 See_Comment L [Au tomated = 86830848) message] The sy stem which generated this result transmitted reference range : 38 - 50 mmHg. The reference range was not used to interpret this result as normal/abnormal . PO2, Venous POC (BKR) 44 See_Comment L [Auto mated (test code = 58773821) messa ge] The system which generated this result transmitted reference range : 50 - 75 mm Hg. The reference range was not used to interpret this result as normal/abnormal . Ionized Calcium POC 1.24 mmol/L 1.15-1.29 (test code = 47654189) HCO3, Pankaj POC (test 16 mmol/L 22-26 L code = 84959391) TCO2 POC (test code = 17 mmol/L 21-32 L 98283471) Base Deficit, Pankaj POC -9 (test code = 97130138) Sample Type (test code IVFLORENCE Physi erik Notified = 54966926) % Sat, Pankaj POC (test 77 % code = 22017711) Lab Interpretation Abnormal (test code = 23222-9) [facility] POC docked [id number] 11:16:15 Test Item Value Reference Range Interpretation Comments pH, Pankaj POC (test code 7.32 7.33-7.43 L = 04697859) pCO2,Pankaj POC (test code 31.0 See_Comment L [Au tomated = 36905213) message] The sy stem which generated this result transmitted reference range : 38 - 50 mmHg. The reference range was not used to interpret this result as normal/abnormal . PO2, Venous POC (BKR) 44 See_Comment L [Auto mated (test code = 26290642) messa ge] The system which generated this result transmitted reference range : 50 - 75 mm Hg. The reference range was not used to interpret this result as normal/abnormal . Ionized Calcium POC 1.24 mmol/L 1.15-1.29 (test code = 74030771) HCO3, Pankaj POC (test 16 mmol/L 22-26 L code = 19209508) TCO2 POC (test code = 17 mmol/L 21-32 L 41601035) Base Deficit, Pankaj POC -9 (test code = 69475229) Sample Type (test code STEPAN valencia Notified = 20117435) % Sat, Pankaj POC (test 77 % code = 82564545) Lab Interpretation Abnormal (test code = 57930-6) [facility] POC docked [id number] 11:16:15 Test Item Value Reference Range Interpretation Comments pH, Pankaj POC (test code 7.32 7.33-7.43 L = 49322340) pCO2,Pankaj POC (test code 31.0 See_Comment L [Au tomated = 45000761) message] The sy stem which generated this result transmitted reference range : 38 - 50 mmHg. The reference range was not used to interpret this result as normal/abnormal . PO2, Venous POC (BKR) 44 See_Comment L [Auto mated (test code = 61173954) messa ge] The system which generated this result transmitted reference range : 50 - 75 mm Hg. The reference range was not used to interpret this result as normal/abnormal . Ionized Calcium POC 1.24 mmol/L 1.15-1.29 (test code = 26184011) HCO3, Pankaj POC (test 16 mmol/L 22-26 L code = 27327982) TCO2 POC (test code = 17 mmol/L 21-32 L 84591263) Base Deficit, Pankaj POC -9 (test code = 53390476) Sample Type (test code STEPAN valencia Notified = 28581902) % Sat, Pankaj POC (test 77 % code = 91385193) Lab Interpretation Abnormal (test code = 62624-3) [facility] POC docked [id number] 11:16:15 Test Item Value Reference Range Interpretation Comments pH, Pankaj POC (test code 7.32 7.33-7.43 L = 31773890) pCO2,Pankaj POC (test code 31.0 See_Comment L [Au tomated = 42048380) message] The sy stem which generated this result transmitted reference range : 38 - 50 mmHg. The reference range was not used to interpret this result as normal/abnormal . PO2, Venous POC (BKR) 44 See_Comment L [Auto mated (test code = 62913189) messa ge] The system which generated this result transmitted reference range : 50 - 75 mm Hg. The reference range was not used to interpret this result as normal/abnormal . Ionized Calcium POC 1.24 mmol/L 1.15-1.29 (test code = 62808547) HCO3, Pankaj POC (test 16 mmol/L 22-26 L code = 66726409) TCO2 POC (test code = 17 mmol/L 21-32 L 30452255) Base Deficit, Pankaj POC -9 (test code = 14140643) Sample Type (test code IVFLORENCE Physi erik Notified = 20210851) % Sat, Pankaj POC (test 77 % code = 01814909) Lab Interpretation Abnormal (test code = 97076-0) [facility] POC docked [id number] 11:16:15 Test Item Value Reference Range Interpretation Comments pH, Pankaj POC (test code 7.32 7.33-7.43 L = 30260239) pCO2,Pankaj POC (test code 31.0 See_Comment L [Au tomated = 63403556) message] The sy stem which generated this result transmitted reference range : 38 - 50 mmHg. The reference range was not used to interpret this result as normal/abnormal . PO2, Venous POC (BKR) 44 See_Comment L [Auto mated (test code = 94309507) Chatwala ge] The system which generated this result transmitted reference range : 50 - 75 mm Hg. The reference range was not used to interpret this result as normal/abnormal . Ionized Calcium POC 1.24 mmol/L 1.15-1.29 (test code = 58340052) HCO3, Pankaj POC (test 16 mmol/L 22-26 L code = 90653359) TCO2 POC (test code = 17 mmol/L 21-32 L 84484192) Base Deficit, Pankaj POC -9 (test code = 07746609) Sample Type (test code IVFLORENCE Physi erik Notified = 66702928) % Sat, Pankaj POC (test 77 % code = 67287554) Lab Interpretation Abnormal (test code = 70361-6) [facility] POC docked [id number] 11:16:15 Test Item Value Reference Range Interpretation Comments pH, Pankaj POC (test code 7.32 7.33-7.43 L = 66918659) pCO2,Pankaj POC (test code 31.0 See_Comment L [Au tomated = 80868024) message] The sy stem which generated this result transmitted reference range : 38 - 50 mmHg. The reference range was not used to interpret this result as normal/abnormal . PO2, Venous POC (BKR) 44 See_Comment L [Auto mated (test code = 61314391) [employer] ge] The system which generated this result transmitted reference range : 50 - 75 mm Hg. The reference range was not used to interpret this result as normal/abnormal . Ionized Calcium POC 1.24 mmol/L 1.15-1.29 (test code = 54655166) HCO3, Pankaj POC (test 16 mmol/L 22-26 L code = 86346436) TCO2 POC (test code = 17 mmol/L 21-32 L 12339299) Base Deficit, Pankaj POC -9 (test code = 59888517) Sample Type (test code IVEN Physi erik Notified = 43021025) % Sat, Pankaj POC (test 77 % code = 32283208) Lab Interpretation Abnormal (test code = 40014-4) [facility] POC docked [id number] 11:16:15 Test Item Value Reference Range Interpretation Comments pH, Pankaj POC (test code 7.32 7.33-7.43 L = 81949126) pCO2,Pankaj POC (test code 31.0 See_Comment L [Au tomated = 29319977) message] The sy stem which generated this result transmitted reference range : 38 - 50 mmHg. The reference range was not used to interpret this result as normal/abnormal . PO2, Venous POC (BKR) 44 See_Comment L [Auto mated (test code = 49442920) [employer]] The system which generated this result transmitted reference range : 50 - 75 mm Hg. The reference range was not used to interpret this result as normal/abnormal . Ionized Calcium POC 1.24 mmol/L 1.15-1.29 (test code = 26961750) HCO3, Pankaj POC (test 16 mmol/L 22-26 L code = 03753814) TCO2 POC (test code = 17 mmol/L 21-32 L 74938943) Base Deficit, Pankaj POC -9 (test code = 97979397) Sample Type (test code IVEN Physi erik Notified = 88517044) % Sat, Pankaj POC (test 77 % code = 50640955) Lab Interpretation Abnormal (test code = 36152-1) [facility] POC docked [id number] 11:16:15 Test Item Value Reference Range Interpretation Comments pH, Pankaj POC (test code 7.32 7.33-7.43 L = 36306519) pCO2,Pankaj POC (test code 31.0 See_Comment L [Au tomated = 47624685) message] The sy stem which generated this result transmitted reference range : 38 - 50 mmHg. The reference range was not used to interpret this result as normal/abnormal . PO2, Venous POC (BKR) 44 See_Comment L [Auto mated (test code = 36585990) messa ge] The system which generated this result transmitted reference range : 50 - 75 mm Hg. The reference range was not used to interpret this result as normal/abnormal . Ionized Calcium POC 1.24 mmol/L 1.15-1.29 (test code = 08925041) HCO3, Pankaj POC (test 16 mmol/L 22-26 L code = 85732849) TCO2 POC (test code = 17 mmol/L 21-32 L 88098794) Base Deficit, Pankaj POC -9 (test code = 26189313) Sample Type (test code STEPAN Physi erik Notified = 50023713) % Sat, Pankaj POC (test 77 % code = 80979222) Lab Interpretation Abnormal (test code = 66126-5) [facility] POC docked [id number] 11:16:15 Test Item Value Reference Range Interpretation Comments pH, Pankaj POC (test code 7.32 7.33-7.43 L = 46721906) pCO2,Pankaj POC (test code 31.0 See_Comment L [Au tomated = 65926285) message] The sy stem which generated this result transmitted reference range : 38 - 50 mmHg. The reference range was not used to interpret this result as normal/abnormal . PO2, Venous POC (BKR) 44 See_Comment L [Auto mated (test code = 99131898) messa ge] The system which generated this result transmitted reference range : 50 - 75 mm Hg. The reference range was not used to interpret this result as normal/abnormal . Ionized Calcium POC 1.24 mmol/L 1.15-1.29 (test code = 46354776) HCO3, Pankaj POC (test 16 mmol/L 22-26 L code = 03978517) TCO2 POC (test code = 17 mmol/L 21-32 L 24555478) Base Deficit, Pankaj POC -9 (test code = 38589820) Sample Type (test code STEPAN valencia Notified = 72044484) % Sat, Pankaj POC (test 77 % code = 48791451) Lab Interpretation Abnormal (test code = 57827-9) [facility] POC docked [id number] 11:16:15 Test Item Value Reference Range Interpretation Comments pH, Pankaj POC (test code 7.32 7.33-7.43 L = 21254212) pCO2,Pankaj POC (test code 31.0 See_Comment L [Au tomated = 49186502) message] The sy stem which generated this result transmitted reference range : 38 - 50 mmHg. The reference range was not used to interpret this result as normal/abnormal . PO2, Venous POC (BKR) 44 See_Comment L [Auto mated (test code = 27442420) messa ge] The system which generated this result transmitted reference range : 50 - 75 mm Hg. The reference range was not used to interpret this result as normal/abnormal . Ionized Calcium POC 1.24 mmol/L 1.15-1.29 (test code = 21275499) HCO3, Pankaj POC (test 16 mmol/L 22-26 L code = 81325262) TCO2 POC (test code = 17 mmol/L 21-32 L 98712073) Base Deficit, Pankaj POC -9 (test code = 31843541) Sample Type (test code STEPAN valencia Notified = 42027935) % Sat, Pankaj POC (test 77 % code = 08225715) Lab Interpretation Abnormal (test code = 86115-1) [facility] POC docked [id number] 11:16:15 Test Item Value Reference Range Interpretation Comments pH, Pankaj POC (test code 7.32 7.33-7.43 L = 96997205) pCO2,Pankaj POC (test code 31.0 See_Comment L [Au tomated = 77889709) message] The sy stem which generated this result transmitted reference range : 38 - 50 mmHg. The reference range was not used to interpret this result as normal/abnormal . PO2, Venous POC (BKR) 44 See_Comment L [Auto mated (test code = 22148556) messa ge] The system which generated this result transmitted reference range : 50 - 75 mm Hg. The reference range was not used to interpret this result as normal/abnormal . Ionized Calcium POC 1.24 mmol/L 1.15-1.29 (test code = 43727671) HCO3, Pankaj POC (test 16 mmol/L 22-26 L code = 98987835) TCO2 POC (test code = 17 mmol/L 21-32 L 48061201) Base Deficit, Pankaj POC -9 (test code = 43036277) Sample Type (test code IVEN Physi erik Notified = 71844237) % Sat, Pankaj POC (test 77 % code = 92127223) Lab Interpretation Abnormal (test code = 80142-9) [facility] POC docked [id number] 11:16:15 Test Item Value Reference Range Interpretation Comments pH, Pankaj POC (test code 7.32 7.33-7.43 L = 72661199) pCO2,Pankaj POC (test code 31.0 See_Comment L [Au tomated = 48359730) message] The sy stem which generated this result transmitted reference range : 38 - 50 mmHg. The reference range was not used to interpret this result as normal/abnormal . PO2, Venous POC (BKR) 44 See_Comment L [Auto mated (test code = 92822710) [employer] ge] The system which generated this result transmitted reference range : 50 - 75 mm Hg. The reference range was not used to interpret this result as normal/abnormal . Ionized Calcium POC 1.24 mmol/L 1.15-1.29 (test code = 54913971) HCO3, Pankaj POC (test 16 mmol/L 22-26 L code = 24068600) TCO2 POC (test code = 17 mmol/L 21-32 L 80020271) Base Deficit, Pankaj POC -9 (test code = 76674271) Sample Type (test code IVEN Physi erik Notified = 93185214) % Sat, Pankaj POC (test 77 % code = 59062880) Lab Interpretation Abnormal (test code = 70281-6) [facility] POC docked [id number] 11:16:15 Test Item Value Reference Range Interpretation Comments pH, Pankaj POC (test code 7.32 7.33-7.43 L = 39624196) pCO2,Pankaj POC (test code 31.0 See_Comment L [Au tomated = 90580689) message] The sy stem which generated this result transmitted reference range : 38 - 50 mmHg. The reference range was not used to interpret this result as normal/abnormal . PO2, Venous POC (BKR) 44 See_Comment L [Auto mated (test code = 18025714) [employer] ge] The system which generated this result transmitted reference range : 50 - 75 mm Hg. The reference range was not used to interpret this result as normal/abnormal . Ionized Calcium POC 1.24 mmol/L 1.15-1.29 (test code = 01066775) HCO3, Pankaj POC (test 16 mmol/L 22-26 L code = 86646773) TCO2 POC (test code = 17 mmol/L 21-32 L 73643121) Base Deficit, Pankaj POC -9 (test code = 81703635) Sample Type (test code IVEN Physi erik Notified = 17394733) % Sat, Pankaj POC (test 77 % code = 57511406) Lab Interpretation Abnormal (test code = 27009-2) [facility] POC docked [id number] 11:16:15 Test Item Value Reference Range Interpretation Comments pH, Pankaj POC (test code 7.32 7.33-7.43 L = 39459720) pCO2,Pankaj POC (test code 31.0 See_Comment L [Au tomated = 98076091) message] The sy stem which generated this result transmitted reference range : 38 - 50 mmHg. The reference range was not used to interpret this result as normal/abnormal . PO2, Venous POC (BKR) 44 See_Comment L [Auto mated (test code = 08429810) [employer]] The system which generated this result transmitted reference range : 50 - 75 mm Hg. The reference range was not used to interpret this result as normal/abnormal . Ionized Calcium POC 1.24 mmol/L 1.15-1.29 (test code = 99047623) HCO3, Pankaj POC (test 16 mmol/L 22-26 L code = 02226805) TCO2 POC (test code = 17 mmol/L 21-32 L 23780909) Base Deficit, Pankaj POC -9 (test code = 96977525) Sample Type (test code IVEN Physi erik Notified = 99658607) % Sat, Pankaj POC (test 77 % code = 98386798) Lab Interpretation Abnormal (test code = 14649-1) [facility] POC docked [id number] 11:16:15 Test Item Value Reference Range Interpretation Comments pH, Pankaj POC (test code 7.32 7.33-7.43 L = 22401375) pCO2,Pankaj POC (test code 31.0 See_Comment L [Au tomated = 83032436) message] The sy stem which generated this result transmitted reference range : 38 - 50 mmHg. The reference range was not used to interpret this result as normal/abnormal . PO2, Venous POC (BKR) 44 See_Comment L [Auto mated (test code = 95995421) messa ge] The system which generated this result transmitted reference range : 50 - 75 mm Hg. The reference range was not used to interpret this result as normal/abnormal . Ionized Calcium POC 1.24 mmol/L 1.15-1.29 (test code = 55761314) HCO3, Pankaj POC (test 16 mmol/L 22-26 L code = 34245779) TCO2 POC (test code = 17 mmol/L 21-32 L 77307895) Base Deficit, Pankaj POC -9 (test code = 94091592) Sample Type (test code IVFLORENCE Physi erik Notified = 31391271) % Sat, Pankaj POC (test 77 % code = 38192649) Lab Interpretation Abnormal (test code = 27906-7) [facility] POC docked [id number] 11:16:15 Test Item Value Reference Range Interpretation Comments pH, Pankaj POC (test code 7.32 7.33-7.43 L = 96632964) pCO2,Pankaj POC (test code 31.0 See_Comment L [Au tomated = 05076994) message] The sy stem which generated this result transmitted reference range : 38 - 50 mmHg. The reference range was not used to interpret this result as normal/abnormal . PO2, Venous POC (BKR) 44 See_Comment L [Auto mated (test code = 16139696) messa ge] The system which generated this result transmitted reference range : 50 - 75 mm Hg. The reference range was not used to interpret this result as normal/abnormal . Ionized Calcium POC 1.24 mmol/L 1.15-1.29 (test code = 41044940) HCO3, Pankaj POC (test 16 mmol/L 22-26 L code = 75848384) TCO2 POC (test code = 17 mmol/L 21-32 L 30487367) Base Deficit, Pankaj POC -9 (test code = 19615170) Sample Type (test code STEPAN valencia Notified = 28402122) % Sat, Pankaj POC (test 77 % code = 28555617) Lab Interpretation Abnormal (test code = 19238-3) [facility] POC docked [id number] 11:16:15 Test Item Value Reference Range Interpretation Comments pH, Pankaj POC (test code 7.32 7.33-7.43 L = 43369091) pCO2,Pankaj POC (test code 31.0 See_Comment L [Au tomated = 99636828) message] The sy stem which generated this result transmitted reference range : 38 - 50 mmHg. The reference range was not used to interpret this result as normal/abnormal . PO2, Venous POC (BKR) 44 See_Comment L [Auto mated (test code = 17804932) VB Rags] The system which generated this result transmitted reference range : 50 - 75 mm Hg. The reference range was not used to interpret this result as normal/abnormal . Ionized Calcium POC 1.24 mmol/L 1.15-1.29 (test code = 15152760) HCO3, Pankaj POC (test 16 mmol/L 22-26 L code = 57479407) TCO2 POC (test code = 17 mmol/L 21-32 L 70920554) Base Deficit, Pankaj POC -9 (test code = 44025218) Sample Type (test code STEPAN valencia Notified = 86481893) % Sat, Pankaj POC (test 77 % code = 71535576) Lab Interpretation Abnormal (test code = 88681-4) [facility] VBG POC docked [id number] 11:16:15 Test Item Value Reference Range Interpretation Comments pH, Pankaj POC (test code 7.32 7.33-7.43 L = 28949105) pCO2,Pankaj POC (test code 31.0 See_Comment L [Au tomated = 86652384) message] The sy stem which generated this result transmitted reference range : 38 - 50 mmHg. The reference range was not used to interpret this result as normal/abnormal . PO2, Venous POC (BKR) 44 See_Comment L [Auto mated (test code = 81199046) VB Rags] The system which generated this result transmitted reference range : 50 - 75 mm Hg. The reference range was not used to interpret this result as normal/abnormal . Ionized Calcium POC 1.24 mmol/L 1.15-1.29 (test code = 44586772) HCO3, Pankaj POC (test 16 mmol/L 22-26 L code = 69635749) TCO2 POC (test code = 17 mmol/L 21-32 L 65249111) Base Deficit, Pankaj POC -9 (test code = 97891646) Sample Type (test code IVFLORENCE Physi erik Notified = 45613743) % Sat, Pankaj POC (test 77 % code = 24034279) Lab Interpretation Abnormal (test code = 91333-2) [facility] VBG POC docked [id number] 11:16:15 Test Item Value Reference Range Interpretation Comments pH, Pankaj POC (test code 7.32 7.33-7.43 L = 01279035) pCO2,Pankaj POC (test code 31.0 See_Comment L [Au tomated = 97902719) message] The sy stem which generated this result transmitted reference range : 38 - 50 mmHg. The reference range was not used to interpret this result as normal/abnormal . PO2, Venous POC (BKR) 44 See_Comment L [Auto mated (test code = 57956875) VB Rags] The system which generated this result transmitted reference range : 50 - 75 mm Hg. The reference range was not used to interpret this result as normal/abnormal . Ionized Calcium POC 1.24 mmol/L 1.15-1.29 (test code = 74451003) HCO3, Pankaj POC (test 16 mmol/L 22-26 L code = 13348690) TCO2 POC (test code = 17 mmol/L 21-32 L 97092437) Base Deficit, Pankaj POC -9 (test code = 61953196) Sample Type (test code IVFLORENCE Physi erik Notified = 98586279) % Sat, Pankaj POC (test 77 % code = 45491333) Lab Interpretation Abnormal (test code = 88107-3) [facility] VBG POC docked [id number] 11:16:15 Test Item Value Reference Range Interpretation Comments pH, Pankaj POC (test code 7.32 7.33-7.43 L = 59683691) pCO2,Pankaj POC (test code 31.0 See_Comment L [Au tomated = 12180425) message] The sy stem which generated this result transmitted reference range : 38 - 50 mmHg. The reference range was not used to interpret this result as normal/abnormal . PO2, Venous POC (BKR) 44 See_Comment L [Auto mated (test code = 25302708) [employer] ge] The system which generated this result transmitted reference range : 50 - 75 mm Hg. The reference range was not used to interpret this result as normal/abnormal . Ionized Calcium POC 1.24 mmol/L 1.15-1.29 (test code = 30873478) HCO3, Pankaj POC (test 16 mmol/L 22-26 L code = 74464681) TCO2 POC (test code = 17 mmol/L 21-32 L 85202777) Base Deficit, Pankaj POC -9 (test code = 96595005) Sample Type (test code IVEN Physi erik Notified = 41313632) % Sat, Pankaj POC (test 77 % code = 41238588) Lab Interpretation Abnormal (test code = 67443-9) [facility] VBG POC docked [id number] 11:16:15 Test Item Value Reference Range Interpretation Comments pH, Pankaj POC (test code 7.32 7.33-7.43 L = 32392026) pCO2,Pankaj POC (test code 31.0 See_Comment L [Au tomated = 08130809) message] The sy stem which generated this result transmitted reference range : 38 - 50 mmHg. The reference range was not used to interpret this result as normal/abnormal . PO2, Venous POC (BKR) 44 See_Comment L [Auto mated (test code = 09265471) [employer] ge] The system which generated this result transmitted reference range : 50 - 75 mm Hg. The reference range was not used to interpret this result as normal/abnormal . Ionized Calcium POC 1.24 mmol/L 1.15-1.29 (test code = 38713058) HCO3, Pankaj POC (test 16 mmol/L 22-26 L code = 37543582) TCO2 POC (test code = 17 mmol/L 21-32 L 43445935) Base Deficit, Pankaj POC -9 (test code = 66890162) Sample Type (test code IVEN Physi erik Notified = 54260105) % Sat, Pankaj POC (test 77 % code = 71782885) Lab Interpretation Abnormal (test code = 20445-0) [place] [address] LEAD [id number] 20:59:5612 LEAD EKG FOR [facility] Test Date: 7689-49-51Nlb Name: DORA SAINT INIGOES Department: 5520Patient ID: [id number] Room: Gender: M 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 Attendant: [id number]: 1970 Requested By: TANJA Garza Number: [id number] Reading MD: Chiara Calles MeasurementsIntervals [place] Rate: 75 P: 84PR: 153 QRS: 67QRSD: 104 T: 77QT: 344 QTc: 373 Interpretive StatementsSINUS RHYTHMPOSSIBLE RIGHT VENTRICULAR CONDUCTION DELAY [RSR (QR) IN V1/V2]Electronically Signed On 01-09-2022 8:27:19 CDT by [place]ara [place] [address] LEAD [id number] 20:59:5612 LEAD EKG FOR [facility] Test Date: 1570-69-58Pyf Name: DORA SAINT INIGOES Department: 5520Patient ID: [id number] Room: Gender: M 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 Attendant: [id number]: 1970 Requested By: TANJA Garza Number: [id number] Reading MD: Chiara Calles MeasurementsIntervals [place] Rate: 75 P: 84PR: 153 QRS: 67QRSD: 104 T: 77QT: 344 QTc: 373 Interpretive StatementsSINUS RHYTHMPOSSIBLE RIGHT VENT RICULAR CONDUCTION DELAY [RSR (QR) IN V1/V2]Electronically Signed On 01-09-2022 8:27:19 CDT by [facility] HealthDanielaAnne [place] [address] LEAD [id number] 20:59:5612 LEAD EKG FOR [facility] Test Date: 7034-07-10Hww Name: DORA SAINT INIGOES Department: 5520Patient ID: [id number] Room: Gender: M 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 Attendant: [id number]: 1970 Requested By: TANJA Garza Number: [id number] Reading MD: Chiara Calles MeasurementsIntervals [place] Rate: 75 P: 84PR: 153 QRS: 67QRSD: 104 T: 77QT: 344 QTc: 373 Interpretive StatementsSINUS RHYTHMPOSSIBLE RIGHT VENTRICULAR CONDUCTION DELAY [RSR (QR) IN V1/V2]Electronically Signed On 01-09-2022 8:27:19 CDT by Chiara Redding Xgzphs53 LEAD [id number] 20:59:5612 LEAD EKG FOR [facility] Test Date: 7821-46-12Lcy Name: DORA MCNEILL Department: 5520Patient ID: [id number] Room: Gender: 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 Attendant: [id number]: 1970 Requested By: TANJA Garza Number: [id number] Reading MD: Chiara Calles MeasurementsIntervals [place] Rate: 75 P: 84P R: 153 QRS: 67QRSD: 104 T: 77QT: 344 QTc: 373 Interpretive StatementsSINUS RHYTHMPOSSIBLE RIGHT VENTRICULAR CONDUCTION DELAY [RSR (QR) IN V1/V2]Electronically Signed On 01-09-2022 8:27:19 CDT by SeeRevverCompaPurkinje12 LEAD [id number] 20:59:5612 LEAD EKG FOR [facility] Test Date: 6910-55-08Bgu Name: DORA MCNEILL Department: 5520Patient ID: [id number] Room: Gender: 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 Attendant: [id number]: 1970 Requested By: TANJA Garza Number: [id number] Reading MD: Chiara Calles MeasurementsIntervals [place] Rate: 75 P: 84PR: 153 QRS: 67QRSD: 104 T: 77QT: 344 QTc: 373 Interpretive StatementsSINUS RHYTHMPOSSIBLE RIGHT VENTRICULAR CONDUCTION DELAY [RSR (QR) IN V1/V2]Electronically Signed On 01-09-2022 8:27:19 CDT by SeeSimpleGeo12 LEAD [id number] 20:59:5612 LEAD EKG FOR [facility] Test Date: 5372-88-14Lcl Name: DORA MCNEILL Department: 5520Patient ID: [id number] Room: Gender: M 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 Attendant: [id number]: 1970 Requested By: TANJA Garza Number: [id number] Reading MD: Chiara Calles MeasurementsIntervals [place] Rate: 75 P: 84PR: 153 QRS: 67QRSD: 104 T: 77QT: 344 QTc: 373 Interpretive StatementsSINUS RHYTHMPOSSIBLE RIGHT VENTR ICULAR CONDUCTION DELAY [RSR (QR) IN V1/V2]Electronically Signed On 01-09-2022 8:27:19 CDT by Chiara EsquedaPurkinje12 LEAD [id number] 20:59:5612 LEAD EKG FOR [facility] Test Date: 7879-06-94Lru Name: DORA PAEZRY Department: 5520Patient ID: [id number] Room: Gender: M 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 Attendant: [id number]: 1970 Requested By: TANJA Garza Number: [id number] Reading MD: Chiara Calles MeasurementsIntervals [place] Rate: 75 P: 84PR: 153 QRS: 67QRSD: 104 T: 77QT: 344 QTc: 373 Interpretive StatementsSINUS RHYTHMPOSSIBLE RIGHT VENTRICULAR CONDUCTION DELAY [RSR (QR) IN V1/V2]Electronically Signed On 01-09-2022 8:27:19 CDT by Chiara EsquedaPurkinje12 LEAD [id number] 20:59:5612 LEAD EKG FOR [facility] Test Date: 6048-89-22Cdz Name: DORA MCNEILL Department: 5520Patient ID: [id number] Room: Gender: M 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 Attendant: [id number]: 1970 Requested By: TANJA Garza Number: [id number] Reading MD: Chiara Calles MeasurementsIntervals [place] Rate: 75 P: 84PR: 153 QRS: 67QRSD: 104 T: 77QT: 344 QTc: 373 Interpretive StatementsSINUS RHYTHMPOSSIBLE RIGHT VENTRICULAR CONDUCTION DELAY [RSR (QR) IN V1/V2]Electronically Signed On 01-09-2022 8:27:19 CDT by Chiara HappyshopbakariRevverCompaPurkinje12 LEAD [id number] 20:59:5612 LEAD EKG FOR [facility] Test Date: 8054-85-70Rsh Name: DORA SAINT INIGOES Department: 5520Patient ID: [id number] Room: Gender: M 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 Attendant: [id number]: 1970 Requested By: TANJA Garza Number: [id number] Reading MD: Chiara Calles MeasurementsIntervals [place] Rate: 75 P: 84PR: 153 QRS: 67QRSD: 104 T: 77QT: 344 QTc: 373 Interpretive StatementsSINUS RHYTHMPOSSIBLE RIGHT VENTRICULAR CONDUCTION DELAY [RSR (QR) IN V1/V2]Electronically Signed On 01-09-2022 8:27:19 CDT by Chiara Redding Bcywdl18 LEAD [id number] 20:59:5612 LEAD EKG FOR [facility] Test Date: 0410-10-69Etj Name: DORA SAINT INIGOES Department: 5520Patient ID: [id number] Room: Gender: M 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 Attendant: [id number]: 1970 Requested By: TANJA Garza Number: [id number] Reading MD: Chiara Calles MeasurementsIntervals [place] Rate: 75 P: 84PR: 153 QRS: 67QRSD: 104 T: 77QT: 344 QTc: 373 Interpretive StatementsSINUS RHYTHMPOSSIBLE RIGHT VENTR ICULAR CONDUCTION DELAY [RSR (QR) IN V1/V2]Electronically Signed On 01-09-2022 8:27:19 CDT by Chiara Redding Zwlkbf00 LEAD [id number] 20:59:5612 LEAD EKG FOR [facility] Test Date: 6458-12-90Khb Name: DORA SAINT INIGOES Department: 5520Patient ID: [id number] Room: Gender: M 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 Attendant: [id number]: 1970 Requested By: TANJA Garza Number: [id number] Reading MD: Chiara Calles MeasurementsIntervals [place] Rate: 75 P: 84PR: 153 QRS: 67QRSD: 104 T: 77QT: 344 QTc: 373 Interpretive StatementsSINUS RHYTHMPOSSIBLE RIGHT VENTRICULAR CONDUCTION DELAY [RSR (QR) IN V1/V2]Electronically Signed On 01-09-2022 8:27:19 CDT by [facility] HospitalExchangeryMer[facility] Hospital Northwest ArkansasTeaman & Company Sscpgs15 LEAD [id number] 20:59:5612 LEAD EKG FOR [facility] Test Date: 1388-68-10Anf Name: DORA MCNEILL Department: 5520Patient ID: [id number] Room: Gender: M 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 Attendant: [id number]: 1970 Requested By: TANJA Garza Number: [id number] Reading MD: Chiara Calles MeasurementsIntervals [place] Rate: 75 P: 84P R: 153 QRS: 67QRSD: 104 T: 77QT: 344 QTc: 373 Interpretive StatementsSINUS RHYTHMPOSSIBLE RIGHT VENTRICULAR CONDUCTION DELAY [RSR (QR) IN V1/V2]Electronically Signed On 01-09-2022 8:27:19 CDT by [facility] HealthBoost Your CampaignMercy Hospital Northwest ArkansasPurkinje12 LEAD [id number] 20:59:5612 LEAD EKG FOR [facility] Test Date: 9540-85-27Trq Name: DORA PAEZRY Department: 5520Patient ID: [id number] Room: Gender: M 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 Attendant: [id number]: 1970 Requested By: TANJA Garza Number: [id number] Reading MD: Chiara Calles MeasurementsIntervals [place] Rate: 75 P: 84PR: 153 QRS: 67QRSD: 104 T: 77QT: 344 QTc: 373 Interpretive StatementsSINUS RHYTHMPOSSIBLE RIGHT VENTRICULAR CONDUCTION DELAY [RSR (QR) IN V1/V2]Electronically Signed On 01-09-2022 8:27:19 CDT by [facility] HospitalExchangeryMer[facility] ArkansasTeaman & Company Fljsbs65 LEAD [id number] 20:59:5612 LEAD EKG FOR [facility] Test Date: 8141-89-38Omq Name: DORA PAEZRY Department: 5520Patient ID: [id number] Room: Gender: M 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 Attendant: [id number]: 1970 Requested By: TANJA Garza Number: [id number] Reading MD: Chiara Calles MeasurementsIntervals [place] Rate: 75 P: 84PR: 153 QRS: 67QRSD: 104 T: 77QT: 344 QTc: 373 Interpretive StatementsSINUS RHYTHMPOSSIBLE RIGHT VENTR ICULAR CONDUCTION DELAY [RSR (QR) IN V1/V2]Electronically Signed On 01-09-2022 8:27:19 CDT by EfrenFeverbkaariSimpleGeo12 LEAD [id number] 20:59:5612 LEAD EKG FOR [facility] Test Date: 3021-39-36Dje Name: DORA MCNEILL Department: 5520Patient ID: [id number] Room: Gender: M 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 Attendant: [id number]: 1970 Requested By: TANJA Garza Number: [id number] Reading MD: Chiara Calles MeasurementsIntervals [place] Rate: 75 P: 84PR: 153 QRS: 67QRSD: 104 T: 77QT: 344 QTc: 373 Interpretive StatementsSINUS RHYTHMPOSSIBLE RIGHT VENTRICULAR CONDUCTION DELAY [RSR (QR) IN V1/V2]Electronically Signed On 01-09-2022 8:27:19 CDT by HALO2CLOUD12 LEAD [id number] 20:59:5612 LEAD EKG FOR [facility] Test Date: 7251-17-55Wvj Name: DORA MCNEILL Department: 5520Patient ID: [id number] Room: Gender: M 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 Attendant: [id number]: 1970 Requested By: TANJA Garza Number: [id number] Reading MD: Chiara Calles MeasurementsIntervals [place] Rate: 75 P: 84 CO: 153 QRS: 67QRSD: 104 T: 77QT: 344 QTc: 373 Interpretive StatementsSINUS RHYTHMPOSSIBLE RIGHT VENTRICULAR CONDUCTION DELAY [RSR (QR) IN V1/V2]Electronically Signed On 01-09-2022 8:27:19 CDT by HALO2CLOUD12 LEAD [id number] 20:59:5612 LEAD EKG FOR [facility] Test Date: 6418-25-64Ued Name: DORA MCNEILL Department: 5520Patient ID: [id number] Room: Gender: M 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 Attendant: [id number]: 1970 Requested By: TANJA Garza Number: [id number] Reading MD: Chiara Calles MeasurementsIntervals [place] Rate: 75 P: 84PR: 153 QRS: 67QRSD: 104 T: 77QT: 344 QTc: 373 Interpretive StatementsSINUS RHYTHMPOSSIBLE RIGHT VENTRICULAR CONDUCTION DELAY [RSR (QR) IN V1/V2]Electronically Signed On 01-09-2022 8:27:19 CDT by HALO2CLOUD12 LEAD [id number] 20:59:5612 LEAD EKG FOR [facility] Test Date: 6141-51-90Pyp Name: DORA MCNEILL Department: 5520Patient ID: [id number] Room: Gender: M 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 Attendant: [id number]: 1970 Requested By: TANJA Garza Number: [id number] Reading MD: Chiara Calles MeasurementsIntervals [place] Rate: 75 P: 84PR: 153 QRS: 67QRSD: 104 T: 77QT: 344 QTc: 373 Interpretive StatementsSINUS RHYTHMPOSSIBLE RIGHT VENT RICULAR CONDUCTION DELAY [RSR (QR) IN V1/V2]Electronically Signed On 01-09-2022 8:27:19 CDT by HALO2CLOUD12 LEAD [id number] 20:59:5612 LEAD EKG FOR [facility] Test Date: 0966-92-35Vbg Name: DORA MCNEILL Department: 5520Patient ID: [id number] Room: Gender: M 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 Attendant: [id number]: 1970 Requested By: TANJA Garza Number: [id number] Reading MD: Chiara Calles MeasurementsIntervals [place] Rate: 75 P: 84PR: 153 QRS: 67QRSD: 104 T: 77QT: 344 QTc: 373 Interpretive StatementsSINUS RHYTHMPOSSIBLE RIGHT VENTRICULAR CONDUCTION DELAY [RSR (QR) IN V1/V2]Electronically Signed On 01-09-2022 8:27:19 CDT by sezmiMercy Hospital Northwest ArkansasPurkinje12 LEAD [id number] 20:59:5612 LEAD EKG FOR [facility] Test Date: 4363-58-65Apx Name: DORA MCNEILL Department: 5520Patient ID: [id number] Room: Gender: M 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 Attendant: [id number]: 1970 Requested By: TANJA Garza Number: [id number] Reading MD: Chiara Calles MeasurementsIntervals [place] Rate: 75 P: 84P R: 153 QRS: 67QRSD: 104 T: 77QT: 344 QTc: 373 Interpretive StatementsSINUS RHYTHMPOSSIBLE RIGHT VENTRICULAR CONDUCTION DELAY [RSR (QR) IN V1/V2]Electronically Signed On 01-09-2022 8:27:19 CDT by HALO2CLOUD12 LEAD [id number] 20:59:5612 LEAD EKG FOR [facility] Test Date: 8647-82-01Pim Name: DORA PAEZRY Department: 5520Patient ID: [id number] Room: Gender: M 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 Attendant: [id number]: 1970 Requested By: TANJA Garza Number: [id number] Reading MD: Chiara Calles MeasurementsIntervals [place] Rate: 75 P: 84PR: 153 QRS: 67QRSD: 104 T: 77QT: 344 QTc: 373 Interpretive StatementsSINUS RHYTHMPOSSIBLE RIGHT VENTRICULAR CONDUCTION DELAY [RSR (QR) IN V1/V2]Electronically Signed On 01-09-2022 8:27:19 CDT by BlueknowbakariRevverMercy Hospital Northwest ArkansasPurkinje12 LEAD [id number] 20:59:5612 LEAD EKG FOR [facility] Test Date: 9622-06-31Hqx Name: DORA MCNEILL Department: 5520Patient ID: [id number] Room: Gender: M 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 Attendant: [id number]: 1970 Requested By: TANJA Garza Number: [id number] Reading MD: Chiara Calles MeasurementsIntervals [place] Rate: 75 P: 84PR: 153 QRS: 67QRSD: 104 T: 77QT: 344 QTc: 373 Interpretive StatementsSINUS RHYTHMPOSSIBLE RIGHT VENTRI CULAR CONDUCTION DELAY [RSR (QR) IN V1/V2]Electronically Signed On 01-09-2022 8:27:19 CDT by [facility] Healthrobert HappyshopbakariRevverTodd V[place] [address] LEAD [id number] 20:59:5612 LEAD EKG FOR [facility] Test Date: 1714-92-80Brd Name: DORA MCNEILL Department: 5520Patient ID: [id number] Room: Gender: M 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 Attendant: [id number]: 1970 Requested By: TANJA Garza Number: [id number] Reading MD: Chiara Calles MeasurementsIntervals [place] Rate: 75 P: 84PR: 153 QRS: 67QRSD: 104 T: 77QT: 344 QTc: 373 Interpretive StatementsSINUS RHYTHMPOSSIBLE RIGHT VENTRICULAR CONDUCTION DELAY [RSR (QR) IN V1/V2]Electronically Signed On 01-09-2022 8:27:19 CDT by Chiara DavisRevverSt. Anthony Hospital W/AUTO [id number] 23:52:00 Test Item Value Reference Range Interpretation [...] = MX#) 0.8 k/mm3 0.1-0.8 N LIVER [id number] 20:04:00 Test Item Value Reference Range Interpretation [...] 67 UNITS/L 25-125 N TAWNY) BASIC METABOLIC [id number] 19:54:00 Test Item Value Reference Range Interpretation [...] POCGLU) 81 MG/DL - CT ABD PELVIS W/[id number] 00:00:00 [facility] 1970 Sex: M Name:HOANG MCNEILL FSED : 1970 Age/S: 51 / M [address] [facility] Unit #: [id number] Loc: [place] [address] Phys: Raffaele Levi MD Acct: [id number] Dis Date: Status: PRE ER PHONE #: Exam Date: 09/23/20211999 FAX #: Reason: RUQ PAIN, VOMITING EXAMS: CPT CODE: [id number] CT ABD PELVIS W/CONT 96631 PROCEDURE INFORMATION: Exam: CT Abdomen And Pelvis [...] : 1970 Age/S: 51 / M [address] [facility] Unit #: [id number] Loc: [place] [address] Phys: Raffaele Levi MD Acct: [id number] Dis Date: Status: PRE ER PHONE #: Exam Date: 09/23/20211999 FAX #: Reason: RUQ PAIN, VOMITING EXAMS: CPT CODE:[id number] CT ABD PELVIS W/CONT 43927 <Continued> abdominal small bowel loops may relate [...] (2049) PAGE 2 Signed ReportCOMP. METABOLIC PANEL (88364)2021-09-14 03:57:44 Test Item Value Reference Range Interpretation Comments NA (test code = 132 mmol/L 135-145 L 3090369566) K (test code = 4.1 mmol/L 3.5-5.0 1747787396) CL (test code = 101 mmol/L 98-108 0536644054) CO2 TOTAL (test code = 23 mmol/L 23-31 7520452382) AGAP (test code = 2-16 8176349779) BUN (test code = 23 mg/dL 7-23 9849147524) GLUCOSE (test code = 97 mg/dL 70-110 6254742986) CREATININE (test code = 1.48 mg/dL 0.60-1.25 H 2741868583) TOTAL BILI (test code = 0.3 mg/dL 0.1-1.8 6536007231) CALCIUM (test code = 9.0 mg/dL 8.6-10.6 1269769389) T PROTEIN (test code = 6.2 g/dL 6.3-8.2 L 3510063211) ALBUMIN (test code = 3.7 g/dL 3.5-5.0 8959235376) ALK PHOS (test code = 82 U/L 34-122 8087467924) ALTv (test code = 21 U/L 5-50 1742-6) AST(SGOT) (test code = 20 U/L 13-40 9869258085) eGFR (test code = mL/min/1.73m2 3482324403) GILBERTO (test code = GILBERTO) Association of [...] tests). Lab Interpretation Abnormal (test code = 83899-7) [facility] WITH [id number] 03:52:42 Test Item Value Reference Range Interpretation [...] RDW-SD (test code = 47.2 fL 38.5-51.6 87762-8) RDW-CV (test code = 14.0 % 12.1-15.4 788-0) PLT (test code = See_Comment H [Automated 777-3) message] The sy stem which generated this result transmitted reference range : 150 - 328 10*3/ ?L. The reference r meredith was not used to interpret this result as normal/abnormal . MPV (test code = 9.2 fL 9.8-13.0 L 22943-8) NRBC/100 WBC (test See_Comment [Automat ed code = 7380310173) message] The system which generated this result transmitted reference range : 0.0 - 10.0 /100 WBCs. The refer ence range was not u sed to interpret th is result as normal/abnormal . NRBC x10^3 (test code <0.01 See_Comment [Auto mated = 9453846195) message] The s ystem which generated this result transmitted reference range : 10*3/?L. The reference range was not used to interpret this result as normal/abnormal . GRAN MAT (NEUT) % 61.3 % (test code = 770-8) IMM GRAN % (test code 0.20 % = 5057653237) LYMPH % (test code = 23.1 % 736-9) MONO % (test code = 13.7 % 5905-5) EOS % (test code = 1.5 % 713-8) BASO % (test code = 0.2 % 706-2) GRAN MAT x10^3(ANC) 2.78 10*3/uL 1.99-6.95 (test code = 2494310132) IMM GRAN x10^3 (test <0.03 0.00-0.06 code = 9113847538) LYMPH x10^3 (test code 1.05 10*3/uL 1.09-3.23 L = 731-0) MONO x10^3 (test code 0.62 10*3/uL 0.36-1.02 = 742-7) EOS x10^3 (test code = 0.07 10*3/uL 0.06-0.53 711-2) BASO x10^3 (test code <0.03 0.01-0.09 = 704-7) Lab Interpretation Abnormal (test code = 09058-4) [facility] [id number] 13:36:34 Test Item Value Reference Interpretation Comments Range TROPONIN I (test 0.001 ng/mL See_Comment [Automated code = 5182404577) message] The system which generated this result [...] biotin. Lab Interpretation Normal (test code = 38534-7) [id number] 13:36:34 Test Item Value Reference Range Interpretation Comments NT-proBNP (test code 79 pg/mL See_Comment [Autom ated = 7663361356) message] The system which generated this result transmitted reference range : <=125. The reference range was not used to interpret this result as normal/abnormal . GILBERTO (test code = GILBERTO) Biotin has been reported to cause a negative bias, interpret results relative to patient's use of biotin. Lab Interpretation Normal (test code = 53800-5) [facility] Center[facility] (NA, K, CL, CO2, GLUCOSE, BUN, CREATININE, CA)2021-09-12 13:24:32 Test Item Value Reference Range Interpretation Comments NA (test code = 134 mmol/L 135-145 L 3639358531) K (test code = 4.3 mmol/L 3.5-5.0 6827832427) CL (test code = 102 mmol/L 98-108 7130608510) CO2 TOTAL (test code = 23 mmol/L 23-31 2791891432) AGAP (test code = 2-16 3472761113) BUN (test code = 22 mg/dL 7-23 2824513504) GLUCOSE (test code = 89 mg/dL 70-110 6905407618) CREATININE (test code = 1.69 mg/dL 0.60-1.25 H [id number]) CALCIUM (test code = 9.0 mg/dL 8.6-10.6 3673463542) eGFR (test code = mL/min/1.73m2 7880455206) GILBERTO (test code = GILBERTO) Association of [...] tests). Lab Interpretation Abnormal (test code = 12621-6) [facility] WITH [id number] 13:09:28 Test Item Value Reference Range Interpretation [...] RDW-SD (test code = 45.3 fL 38.5-51.6 95596-6) RDW-CV (test code = 13.9 % 12.1-15.4 788-0) PLT (test code = See_Comment H [Automated 777-3) message] The sy stem which generated this result transmitted reference range : 150 - 328 10*3/ ?L. The reference r meredith was not used to interpret this result as normal/abnormal . MPV (test code = 9.0 fL 9.8-13.0 L 37396-1) NRBC/100 WBC (test See_Comment [Automat ed code = 8598326873) message] The system which generated this result transmitted reference range : 0.0 - 10.0 /100 WBCs. The refer ence range was not u sed to interpret th is result as normal/abnormal . NRBC x10^3 (test code <0.01 See_Comment [Auto mated = 5955386161) message] The s ystem which generated this result transmitted reference range : 10*3/?L. The reference range was not used to interpret this result as normal/abnormal . GRAN MAT (NEUT) % 69.7 % (test code = 770-8) IMM GRAN % (test code 0.40 % = 0837023551) LYMPH % (test code = 16.9 % 736-9) MONO % (test code = 11.9 % 5905-5) EOS % (test code = 0.7 % 713-8) BASO % (test code = 0.4 % 706-2) GRAN MAT x10^3(ANC) 3.88 10*3/uL 1.99-6.95 (test code = 3081858150) IMM GRAN x10^3 (test <0.03 0.00-0.06 code = 0671952652) LYMPH x10^3 (test code 0.94 10*3/uL 1.09-3.23 L = 731-0) MONO x10^3 (test code 0.66 10*3/uL 0.36-1.02 = 742-7) EOS x10^3 (test code = 0.04 10*3/uL 0.06-0.53 L 711-2) BASO x10^3 (test code <0.03 0.01-0.09 = 704-7) Lab Interpretation Abnormal (test code = 78697-9) [facility] WITH [id number] 05:55:28 Test Item Value Reference Range Interpretation [...] RDW-SD (test code = 45.4 fL 38.5-51.6 75871-0) RDW-CV (test code = 13.8 % 12.1-15.4 788-0) PLT (test code = See_Comment [Automated 777-3) message] The sy stem which generated this result transmitted reference range : 150 - 328 10*3/ ?L. The reference r meredith was not used to interpret this result as normal/abnormal . MPV (test code = 9.2 fL 9.8-13.0 L 48879-9) NRBC/100 WBC (test See_Comment [Automat ed code = 0606575409) message] The system which generated this result transmitted reference range : 0.0 - 10.0 /100 WBCs. The refer ence range was not u sed to interpret th is result as normal/abnormal . NRBC x10^3 (test code <0.01 See_Comment [Auto mated = 5236754013) message] The s ystem which generated this result transmitted reference range : 10*3/?L. The reference range was not used to interpret this result as normal/abnormal . GRAN MAT (NEUT) % 60.6 % (test code = 770-8) IMM GRAN % (test code 0.20 % = 5985293628) LYMPH % (test code = 25.5 % 736-9) MONO % (test code = 10.5 % 5905-5) EOS % (test code = 2.8 % 713-8) BASO % (test code = 0.4 % 706-2) GRAN MAT x10^3(ANC) 3.23 10*3/uL 1.99-6.95 (test code = 9165032168) IMM GRAN x10^3 (test <0.03 0.00-0.06 code = 6710624585) LYMPH x10^3 (test code 1.36 10*3/uL 1.09-3.23 = 731-0) MONO x10^3 (test code 0.56 10*3/uL 0.36-1.02 = 742-7) EOS x10^3 (test code = 0.15 10*3/uL 0.06-0.53 711-2) BASO x10^3 (test code <0.03 0.01-0.09 = 704-7) Lab Interpretation Abnormal (test code = 31676-5) [facility] Test Item Value Reference Range Interpretation Comments LIPASE (test code = 9297330459) 116 U/L 0-220 Lab Interpretation (test code = Normal 65261-1) [facility] (84869)2021-09-09 05:48:46 Test Item Value Reference Range Interpretation Comments NA (test code = 137 mmol/L 135-145 1867349623) K (test code = 4.0 mmol/L 3.5-5.0 9201701384) CL (test code = 108 mmol/L 98-108 1735842673) CO2 TOTAL (test code = 22 mmol/L 23-31 L 9133793919) AGAP (test code = 2-16 6309081779) BUN (test code = 23 mg/dL 7-23 8835742189) GLUCOSE (test code = 89 mg/dL 70-110 8980279724) CREATININE (test code = 1.28 mg/dL 0.60-1.25 H 7151460435) TOTAL BILI (test code = 0.4 mg/dL 0.1-1.1 3880808767) CALCIUM (test code = 8.9 mg/dL 8.6-10.6 4951367503) T PROTEIN (test code = 6.0 g/dL 6.3-8.2 L 5727488950) ALBUMIN (test code = 3.5 g/dL 3.5-5.0 1635272944) ALK PHOS (test code = 67 U/L 34-122 7151035578) ALTv (test code = 18 U/L 5-50 1742-6) AST(SGOT) (test code = 22 U/L 13-40 9787975256) eGFR (test code = mL/min/1.73m2 4526937059) GILBERTO (test code = GILBERTO) Association of [...] tests). Lab Interpretation Abnormal (test code = 61907-3) [facility]. METABOLIC PANEL (82907)2021-09-08 02:29:45 Test Item Value Reference Range Interpretation Comments NA (test code = 138 mmol/L 135-145 6029479917) K (test code = 4.3 mmol/L 3.5-5.0 4971265193) CL (test code = 106 mmol/L 98-108 4720628007) CO2 TOTAL (test code = 27 mmol/L 23-31 4461921722) AGAP (test code = 2-16 4783244374) BUN (test code = 22 mg/dL 7-23 3325407851) GLUCOSE (test code = 90 mg/dL 70-110 5766679717) CREATININE (test code = 1.36 mg/dL 0.60-1.25 H 3381739568) TOTAL BILI (test code = 0.4 mg/dL 0.1-1.7 8738907338) CALCIUM (test code = 9.2 mg/dL 8.6-10.6 5725424289) T PROTEIN (test code = 6.5 g/dL 6.3-8.2 8763819891) ALBUMIN (test code = 3.8 g/dL 3.5-5.0 5251794619) ALK PHOS (test code = 73 U/L 34-122 4470715723) ALTv (test code = 19 U/L 5-50 1742-6) AST(SGOT) (test code = 24 U/L 13-40 0606602813) eGFR (test code = mL/min/1.73m2 4522709855) GILBERTO (test code = GILBERTO) Association of [...] tests). Lab Interpretation Abnormal (test code = 17059-7) [facility] 02:29[facility]45 Test Item Value Reference Range Interpretation Comments LIPASE (test code = 9691542295) 75 U/L 0-220 Lab Interpretation (test code = Normal 63553-5) [facility] WITH [id number] 02:15:21 Test Item Value Reference Range Interpretation [...] RDW-SD (test code = 45.9 fL 38.5-51.6 75655-1) RDW-CV (test code = 13.6 % 12.1-15.4 788-0) PLT (test code = See_Comment [Automated 777-3) message] The sy stem which generated this result transmitted reference range : 150 - 328 10*3/ ?L. The reference r meredith was not used to interpret this result as normal/abnormal . MPV (test code = 9.4 fL 9.8-13.0 L 10185-2) NRBC/100 WBC (test See_Comment [Automat ed code = 2769596211) message] The system which generated this result transmitted reference range : 0.0 - 10.0 /100 WBCs. The refer ence range was not u sed to interpret th is result as normal/abnormal . NRBC x10^3 (test code <0.01 See_Comment [Auto mated = 2442701605) message] The s ystem which generated this result transmitted reference range : 10*3/?L. The reference range was not used to interpret this result as normal/abnormal . GRAN MAT (NEUT) % 66.0 % (test code = 770-8) IMM GRAN % (test code 0.50 % = 0131690997) LYMPH % (test code = 20.0 % 736-9) MONO % (test code = 9.8 % 5905-5) EOS % (test code = 3.5 % 713-8) BASO % (test code = 0.2 % 706-2) GRAN MAT x10^3(ANC) 3.77 10*3/uL 1.99-6.95 (test code = 1557340793) IMM GRAN x10^3 (test 0.03 10*3/uL 0.00-0.06 code = 8779087843) LYMPH x10^3 (test code 1.14 10*3/uL 1.09-3.23 = 731-0) MONO x10^3 (test code 0.56 10*3/uL 0.36-1.02 = 742-7) EOS x10^3 (test code = 0.20 10*3/uL 0.06-0.53 711-2) BASO x10^3 (test code <0.03 0.01-0.09 = 704-7) Lab Interpretation Abnormal (test code = 02036-0) [facility] Center[facility] Pizfn2546-28-26 02:10:44 Test Item Value Reference Range Interpretation Comments LACTIC ACID (test code = 1.35 mmol/L 0.50-2.20 6338586647) Lab Interpretation (test code = Normal 15952-1) [facility] [id number] 15:31:19 Test Item Value Reference Range Interpretation Comments Case Report (test code Surgical Pathology ? ? = [id number]) ?Case: [id number] ? Authorizing Provider: ?Bia Pedro MD ?Collected: ? 09/03/2021 08 ?Ordering Location: ? ? [facility] OR ? Received: ?09/03/2021 08 ? Department ? Pathologist: ? Shaneka Douglas MD ? Specimen: ? ?ILEUM, Ileostomy ( staple ?end proximal ) ? Final Diagnosis (test d8qdkVKyHQCqa6ckKCBaeP code = 8573992805) FuZzEwMzNcZnRuYmpcdWMx IHtccnRmMVxlcGljOTYwMV pgvrReKRUtyGCgY1Ahawpi JKjhQF8fSU3ebAkvzZLueJ GuTNCpOyDfh4xvh711gGEw t9wdZMKQuiuelJz0nWzlS9 4kz9Y5AlvwL25zaUHtSNE8 ZYXoXFKgeJOrPQPsIYM0FA WfpBApY9cbZNRaFX7gegau HRcqBDyxTHVelOK2OGCqjA OdM5IzDHUlYPnaFWBqkmt7 OpFcBx4gjKUfrAauAOotVA JkXHBsYWluXGZzMjBccGFy IEEuIElMRVVNLCBJTEVPU1 WZFKi3IPErnsYmRONvCB3o QkVOSUdOIElMRUFMIFRJU1 VFKEYDNHVGZRSTD5TNFP4X S31SPBwpIYPTH3zPIaChHC 1NOBELZoyTV7KULEKRZFHX RUxTLCBccGFyICAgICAgIC PEC47VRTZZWG3RDWiBHChr JXsCT2AIN70DGIBvbntvXA JcZnMyMiBTcmkgQmhhcmF0 xJuzI2N9uEDvFBAFRdBHVB QikruoWFJ5x4wkaIVmIJNb yTYzMzKmGCQcDZHvx8fqPZ VmbGFuZzEwMzNcZnRuYmpc iJQtLRZfXaXvx0tny445yA Sjx9ifXFUzCeB0pJPbDEIt sFedzhi9tEpsPwPeGQVpb1 lzcyBcZmNoYXJzZXQwIEFy nLYaA274VAZqSQwvn3ffa8 BwOWGbmCCqk9W4UZNHEJnp EzMsO769s9vov0wjhpBloI C9ZQFzLVJ1SKskaxIdzxZ0 CYruuGScXwM8KJgibfBxSC rcklWlldQoYid6NSWuG547 TOX0nVbbv3grMUZ8ZQFsRF NvZmaqMr9ldUVpV076OMIk IJMPIGIgnDg5QNZizbRnch UwkTCMb849B773z7ewZMKo jcAcvJdAosrqt4dqX895MD BhcGVydzEyMjQwXHBhcGVy aGA0YGSpJB8cqmefRIebUH eqEMSnsgR5EZEieQIaZ7Bm NXOwLO5ywnthQDX1DZvwRI EqUNQ5ShOmXZIic2Unjpi9 OeYyzi1yhp50HDN0k0GxcT egAFV2MOX8MrBnIs1dgTUz TCSlEI0iFwPaeVZrOUMxku 83zNunRKiqeiNivL9fOzOl LWVieSPgMEGlOA1uuIXmHD OziW7mndckDKIfKeRvilux ZXHzqKdozyPbPc8vnRvqWY P7ZDxxR6qmvH0gHzK6OWrh W5xsyY7cRBx5QBfklTI4GR BskW4fOE8evlnhj2tlCImg ZKdiJYXukaW5alF5AFIgqR XzR5AnqS0rAEJmPU2oesyb q7miKRC8MZyfORBiYPP7Gc SsCVJfe2Smqyb2XyGoq1Ii vCFnCSrzT72yq518LJCxno WtH4claCHxmqbqhUUmbymw LYwuroD4HWPrEKZxJZcjUL YxXGZzMjBcbGFuZzEwMzNc aGljaFxmMVxkYmNoXGYxXG bxE4rrFaQhM0CoASVrNsQr gLJmOFxvxTZ6WPHoFWDac6 0coZa1WBDzpybrq9CqFPBb nDDujMJlnM6serKvi0duWY JgQXIiDXVwS5WlIUH4hVHn WICnmLRzcDB1EV9ttyCkAQ 1hZGUgYnkgcmVzaWRlbnRz IYAfVYsxo5xtWM2aBFKwjF cqjZ7kiRW0BRRac3oqwAQz hCAjd1vqz3QqjzBnASqkUD AgIQazJFZpFMGfOU3wSPHt vSPdzfRaq7F3KrmrnJIgeb czQkqhxzP6ATlrzrgvQIQh QIskJ6pnApBcFDCvdEjbUg qzf5PeJUUzWSWyMtqlmGMn fX0= Clinical Information 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] 5263787459) Gross Description (test j6okrMOcOYTsnANCQUTnHh code = 6555691368) iloeEfSLOikBHnJ9Yksekd VNydNV3sEM2fuDgfgLKxbY UmYI0TJGUzJiDkPKVyvVIa cuIbNnUjLONpwVWrcHF4OC AtXM5tfdsfRYuvMJlhWLUc rzE5NNIgeWQbP5EkFJEvFQ 6gxtfsGHM2DUtrhX2erkDE LpemVs5qpCOpsNynPjBkBn NoYXJzZXQwXGZuaWwgQXJp OWq8wS7XDdoiWTK9PXFJWa qmRDIlJA9Sp5vfEWBedZHm JRP8UDbqjPBqECQgDPEkAZ q4DVNyRJbceTRnVI9onDpt QflzmOvbd2QkwSLeVKfxSR GgDKAyTEoeKLQiLN6AQxMq BMxKUACwALObMjO0LFh5NU HJRoQqGfUtMOq2Oib0LaCd SJc9BOf1FBnELbNwVGG8Qy XePfX9TMH8PALjCYeymFKd IFxcZiBBcmlhbCBcXGZzID VuLFkiFufyWFfjN37ulFzr vI8sXpQpAGJDLgJWOSYVPE 3bcPHcWA3UEEIpBSaxIPEp dHFBBLA0NL4fWSCSWnqexW OfHLDykSbbDKseuV3uTN7A JZg2tfKoHTCcFcBzQ1MgZ6 rsSL5tYEFwwsJfKWRjmWGz ZCBmcmVzaCBhbmQgbGFiZW tdPEH2sZHfHNAuPPQrTKFw SY88R5BkscIfKWykKFqpzi MfIdFhULGunEA5qUusuOnt k8I2c879IDEbrIOhuSIcQP 4aGZSvu1auwNNbKnObxzGt S36rv3pciDDzb3ToKQY6VJ 2drPsqdjSlONlpGC88QR4r HFHiVHkxPDCjb4DqHAb4Rb DzL27znR6zlQLzY8MeLHM3 IDQuMiBjbSBpbiBkaWFtZX Bngoocl3u8cBPqVWP3v97n KNzgMccgeDYjHoEfL64wIQ ubiaRdJGgefHfmTCK9wXsm WXAplDOwSyX1YT3dReZsn0 7ge4ftxgLlhoGtOCKioIFs yERqLBJcv0PyvZdcnyCeHX TguX3tJXMrBZSvvBCxwI3t biBpcyBvcGVuIHRvIHJldm NxtIF2MK4gtPnonhCnvl3l u0f7BHBoegScHDFgSTFxWI WlbBRiz9MnXKZEKZJwWNFk knDktUx3UPObZGH0sT9hlg QfuhBcn5RqiBc7bRXeMHjn VUTpTZGmjx03O5jqSVLvRA BhciANClxwYXIgDQpBMTog sEKowTjrXLvoqBAhE1fnJF RrJDMuDIKllkTqnJb1DWVm dGGhJN8TTAM9CJM0z25gKD NoOZMuRWAxzhApoLl7XIwu EKThSLyLTqgwLw87KIxnd4 JnbPofirQudmJcNJ53HNUn leReiPRcZF1SHDBjblQURu L8oNztZGn4MKV9ANjoVTT7 dY5un9zrj0WeEoPYo6Fdo2 QwqmXlm3U4QUVwlYdakQ4i NO5bjdauUWNcMSC8v9OeAI JGOEcdwLmjnU1yBVFoV06n o2SVu0EaVHGiSHtyk0kccY iys1DqzLPzGVexXNStzDAs VYtqcW6mLyQku4ckcWc5CH dsgzJ5PSZteh5RElhsiC6z PfLdg6olfTb5PFEDHbbjws Y6z6lnrXdyo0KruSGlJU3M Cn0= Disclaimer (test code = n5apvGJcGGJkt1baQLIaiG 2735721662) FuZzEwMzNcZnRuYmpcdWMx WFvdxrViREzsz4EwR8YjSr AwMFxhbnNpXGRlZmxhbmcx JFRcHGL5ioVuFXKoOJbdYK TnYJvsWk8aaXZkqDocGhZv IXPkp6izgiQJNXraBiLvF6 86NIOwBNczs9ebb2GzFZLy mYEwt0K1LLWQkvynlPk6oQ czW84im6F6SrpwH0nxLIHd NMDyD8IuZQ3tGABlOii1OF J9TLE2AKCvEILjO2CqQI0u ATEvzROtFKi5o9oakXirBJ ApQEV1o4chQEbjtqUmOR9f su1qjVb9w0wvxdNaIMIjWJ JgtRFDODSqD7RlaBxsUl8x hNw3fFbtHvrzFAG3Jwv2YC 0avr17aef1nAvkKPHdlhpj VhS1AFdaVRGqkctdEIk2DN piFUZtxQF2WIBwkRWtS7Oz FTLdCC1zdqg3CEJ5LSzfOJ WtSrM4DAOakCUnYFHlgMya QHytp264XZL2KhWgUE5cB5 Mxr5N2vO7poLZiBKYvvIVv TnAdPDJjni1jdVOyCZgkc3 HdVYE7bmG7vTDaqCYsXPCn WD87Exudr3LaGbfpt7UwR3 7suLL8FLtgk4ksXK4oAwN3 ghKnEQthr8jvdG0iNuT6CM svUP8tWF6dJUZpzA7vfdxp XHBnYnJkcmhlYWRccGdicm EiYb3jhWbyJSF3TSbeD4wh nB1dFgP4NKetQ8lsaJ4tYV z4YJvqsCN5QYNkbK2hJF4o ydqto0ddNLqlDUaaCEKmyz C6gdE9RWSthMFuD8ZjwA5z GCNuRQ6uebwme1wyWDU9CB vxPNBlXZZ6HhOnOEQrw8Jh cgt7NxNra9ZiuNZlBNflV0 8mw396CYNhozAmH0awtKTy codmfXWokcvfHMzivyV0YV HtyvTit3YfWAShFDS7SUwk CNnmwNQuPZJyvFadr1goX2 RscGFyXHBsYWluXGYxXGZz MjBcbGFuZzEwMzNcaGljaF qvNWknZrCiVWScSCgwH0mh UsUjX4AeIJYqSjThxFEvP8 ggVGhpcyByZXBvcnQgbWF5 BKhdJ0r2UWToptGveRe1ul VqSjLfZBXhHXM5WMbunTOg QFCum0UghurogGNrCq8oiR TyYAPasM9tXAPwNWNrNVsb XW5duFo7WHJBbUTjsRRyGa XKKTUaXR15qfUnSJISwytz n1W9LXdfUVEct2ObsREvV2 lfa1EmKTBtv17cMG3co1W9 j4wsECB4EK0dl4YcSXWzzW CtpEKoZTUdb7Emzrxtb2Xf KXFjbfFqb1ZbBFWkvnSweL IjADXqlxFvev2mejHmQTOr USCcT1UuzrwcbMkqduYqMB Gkgk5fyfClZLH8SKXVAYIz GTAfj0BvrC5lyUGTINQ6jF Ynah1gltVFcPZmYQKqvy74 XDYyVQ6jY6qyRIFkPFQbmc MxmWIgr8NmNWErqPA6sUTa AD9KRyNSy84jAXJjLTMTwe KoUNDugFpstGF0ziX8xD9c IChGREEpLlx+IFRoZSBGRE CnAC3vvmAod4MkfcKslLek UFZstOKhf8TfePKlo7IwfX byt6JnzQSiqRHhBN0oFZJq clxwYXIgVVRNQiBMYWJvcm M9j5EhSSZxPICxYGZ8eKes yaa1AEKbpT9cICYgM5ftgw gpBRftPJCjc1XtqQ4fiXQS tHPvn7VbyTPgyUMXfTAsPJ 4vkwXeGWqVWCdBVEX4ipAi ZRLgf1XdOWeiZ2mvB47ubU yzsYe5wGF2VFC9fZ5aBzs+ IFxwYXJccGFyIEFwcHJvcH FaXWZsaCjajfMeB3YfogFz mQ2cnOTduiBbWD2pQY5gP2 K9vTCeQHOmtrCcd3knWNps dmUgYmVlbiByZXZpZXdlZC Uuc2SlNQmdQHZ9CQpupfUk bmNsdWRpbmcgSCZFLCBTcG QpxPWhYGC2HSaocpPqlkSz VC0tpR3mmZfcvN2mgTCopM M0fpnfYZUnLJAkpCqtCNZz VU2jtZMiCOLbrrTAzJeekV VzuS3kV2XpVDUaZWXlhm2i ZYHehD8qARyat1KzxmkaHJ TuCYWgPGTwlsOuua1wCULz gAVKRO7CBJtswXRxv7Nszz CvL1vHWDF2EGAmMjApNbvx GAHraZUoxFNwAZAlut25DP NnwI4toDgzQMTqiW6ilF0b eHhgrR2sRsXeNkHgBQujIO 9mPCTqI4exgOJfWQGlPAIp I3qpYfZspX2vfKekWAjrXg UvYqAtGCowVJI1bC== Embedded Images (test code = 3857113010) [facility] [id number] 09:01:06 Test Item Value Reference Range Interpretation Comments Blood Culture-Aerobic No organisms No growth Previo us (test code = 52539-7) isolated prelim inary verified result was Culture In Progress on 08/31/2021 at 060 1 CSTPrevious preliminary verified result was No growth a t 24 hours on 09/01/2021 at 030 1 CSTPrevious preliminary verified result was No growth a t 48 hours on 09/02/2021 at 03 01 CSTPrevious preliminary verified result was No growth a t 72 hours on 09/03/2021 at 03 01 SHEET [facility]UR[facility] Blood No organisms No growth Previous Culture-Anaerobic isolated preliminar y (test code = 48165-6) verifi ed result was Culture In Progress on 08/31/2021 at 060 1 CSTPrevious preliminary verified result was No growth a t 24 hours on 09/01/2021 at 030 1 CSTPrevious preliminary verified result was No growth a t 48 hours on 09/02/2021 at 03 01 CSTPrevious preliminary verified result was No growth a t 72 hours on 09/03/2021 at 03 01 SHEET [facility] Lab Interpretation Normal (test code = 45841-5) [facility] (NA, K, CL, CO2, GLUCOSE, BUN, CREATININE, CA)2021-09-04 13:22:54 Test Item Value Reference Range Interpretation Comments NA (test code = 132 mmol/L 135-145 L 6599266498) K (test code = 4.3 mmol/L 3.5-5.0 4525183881) CL (test code = 104 mmol/L 98-108 3643839809) CO2 TOTAL (test code = 23 mmol/L 23-31 9130239020) AGAP (test code = 2-16 3586385442) BUN (test code = 15 mg/dL 7-23 6600013258) GLUCOSE (test code = 96 mg/dL 70-110 6530557415) CREATININE (test code = 1.42 mg/dL 0.60-1.25 H 3198486078) CALCIUM (test code = 8.7 mg/dL 8.6-10.6 2080055389) eGFR (test code = mL/min/1.73m2 2383614976) GILBERTO (test code = GILBERTO) Association of [...] tests). Lab Interpretation Abnormal (test code = 71494-7) [facility] METABOLIC PANEL (NA, K, CL, CO2, GLUCOSE, BUN, CREATININE, CA)2021-09-04 13:22:54 Test Item Value Reference Range Interpretation Comments NA (test code = 132 mmol/L 135-145 L 8229895831) K (test code = 4.3 mmol/L 3.5-5.0 7759294622) CL (test code = 104 mmol/L 98-108 4623602651) CO2 TOTAL (test code = 23 mmol/L 23-31 9588041343) AGAP (test code = 2-16 6200250462) BUN (test code = 15 mg/dL 7-23 3391595357) GLUCOSE (test code = 96 mg/dL 70-110 0030043810) CREATININE (test code = 1.42 mg/dL 0.60-1.25 H 6688162327) CALCIUM (test code = 8.7 mg/dL 8.6-10.6 3811476858) eGFR (test code = mL/min/1.73m2 5780392585) GILBERTO (test code = GILBERTO) Association of [...] tests). Lab Interpretation Abnormal (test code = 00734-6) [facility] CULTURE [id number] 17:16:36 Test Item Value Reference Range Interpretation Comments Blood Culture Coagulase negative Addition al Workup (test Staphylococcus work-up perfo rmed code = 600-7) only per reque st. Culture plate(s ) will be saved until this date : 09/08/21 Gram stain Isolated from aerobic (test code = bottle Gram positive 664-3) cocci in clusters [facility] CULTURE [id number] 17:16:36 Test Item Value Reference Range Interpretation Comments Blood Culture Coagulase negative Addition al Workup (test Staphylococcus work-up perfo rmed code = 600-7) only per reque st. Culture plate(s ) will be saved until this date : 09/08/21 Gram stain Isolated from aerobic (test code = bottle Gram positive 664-3) cocci in clusters [facility] Culture - Peripheral Vein # 17:16:26 Test Item Value Reference Range Interpretation Comments Blood Culture-Aerobic Culture positive. No growth AA P revious (test code = 57135-2) See Blood Culture p reliminary Workup for verified result additional was Culture In information. Progress on 08/31/2021 at 060 1 SHEET TURNER Blood No organisms No growth Previous Culture-Anaerobic isolated preliminar y (test code = 44182-9) verifi ed result was Culture In Progress on 09/01/2021 at 012 7 SHEET TURNER Lab Interpretation Abnormal (test code = 45239-7) [facility] Culture - Peripheral Vein # 17:16:26 Test Item Value Reference Range Interpretation Comments Blood Culture-Aerobic Culture positive. No growth AA P revious (test code = 42485-5) See Blood Culture p reliminary Workup for verified result additional was Culture In information. Progress on 08/31/2021 at 060 1 SHEET TURNER Blood No organisms No growth Previous Culture-Anaerobic isolated preliminar y (test code = 98332-3) verifi ed result was Culture In Progress on 09/01/2021 at 012 7 SHEET [facility]URNER Lab Interpretation Abnormal (test code = 59614-0) [facility] METABOLIC PANEL (NA, K, CL, CO2, GLUCOSE, BUN, CREATININE, CA)2021-09-03 12:16:04 Test Item Value Reference Range Interpretation Comments NA (test code = 130 mmol/L 135-145 L 3267954011) K (test code = 4.1 mmol/L 3.5-5.0 8801687504) CL (test code = 103 mmol/L 98-108 8641189815) CO2 TOTAL (test code = 21 mmol/L 23-31 L 1281175591) AGAP (test code = 2-16 9808001088) BUN (test code = 14 mg/dL 7-23 4562188545) GLUCOSE (test code = 90 mg/dL 70-110 6613927576) CREATININE (test code = 1.28 mg/dL 0.60-1.25 H 3001687102) CALCIUM (test code = 8.8 mg/dL 8.6-10.6 9355746159) eGFR (test code = mL/min/1.73m2 8571028119) GILBERTO (test code = GILBERTO) Association of [...] tests). Lab Interpretation Abnormal (test code = 56820-2) [facility] METABOLIC PANEL (NA, K, CL, CO2, GLUCOSE, BUN, CREATININE, CA)2021-09-03 12:16:04 Test Item Value Reference Range Interpretation Comments NA (test code = 130 mmol/L 135-145 L 4275732005) K (test code = 4.1 mmol/L 3.5-5.0 8113694011) CL (test code = 103 mmol/L 98-108 0003085521) CO2 TOTAL (test code = 21 mmol/L 23-31 L 2552593840) AGAP (test code = 2-16 1940929493) BUN (test code = 14 mg/dL 7-23 6173282201) GLUCOSE (test code = 90 mg/dL 70-110 8461849197) CREATININE (test code = 1.28 mg/dL 0.60-1.25 H 5729097428) CALCIUM (test code = 8.8 mg/dL 8.6-10.6 7031737205) eGFR (test code = mL/min/1.73m2 4744032998) GILBERTO (test code = GILBERTO) Association of [...] tests). Lab Interpretation Abnormal (test code = 51274-2) [facility] WITHOUT [id number] 11:53:39 Test Item Value Reference Range Interpretation Comments WBC (test code = 6690-2) See_Comment [A utomated message] The system [employer] generated this result transmit dain reference range : 4.20 - 10.70 10*3/?L. The reference range was not used to interpret this result as normal/abnormal . RBC (test code = 789-8) See_Comment L [Au tomated message] The system [employer] generated this result transmit dain reference [...] 777-3) See_Comment [Au tomated message] The system [employer] generated this result transmit dain reference range : 150 - 328 10*3/?L. The reference range was not used to interpret this result as normal/abnormal . MPV (test code = 10.1 fL 9.8-13.0 69728-1) RDW-CV (test code = 13.5 % 12.1-15.4 788-0) RDW-SD (test code = 44.6 fL 38.5-51.6 34864-6) NRBC x10^3 (test code = <0.01 See_Comment [Au tomated message] 7816713986) The system [employer] generated this result transmit dain reference range : 10*3/?L. The reference range was not used to interpret this result as normal/abnormal . NRBC/100 WBC (test code See_Comment [Au tomated message] = 1473911171) The system [facility] generated this result transmit dain reference range : 0.0 - 10.0 /100 WBC s. The reference r meredith was not used to interpret this result as normal/abnormal . IPF % (test code = 7556847122) Lab Interpretation (test Abnormal code = 46388-9) [facility] WITHOUT [id number] 11:53:39 Test Item Value Reference Range Interpretation Comments WBC (test code = 6690-2) See_Comment [A utomated message] The system [employer] generated this result transmit dain reference range : 4.20 - 10.70 10*3/?L. The reference range was not used to interpret this result as normal/abnormal . RBC (test code = 789-8) See_Comment L [Au tomated message] The system [employer] generated this result transmit dain reference [...] 777-3) See_Comment [Au tomated message] The system [employer] generated this result transmit dain reference range : 150 - 328 10*3/?L. The reference range was not used to interpret this result as normal/abnormal . MPV (test code = 10.1 fL 9.8-13.0 36158-1) RDW-CV (test code = 13.5 % 12.1-15.4 788-0) RDW-SD (test code = 44.6 fL 38.5-51.6 63660-2) NRBC x10^3 (test code = <0.01 See_Comment [Au tomated message] 9709683234) The system [employer] generated this result transmit dain reference range : 10*3/?L. The reference range was not used to interpret this result as normal/abnormal . NRBC/100 WBC (test code See_Comment [Au tomated message] = 3142868215) The system [employer] generated this result transmit dain reference range : 0.0 - 10.0 /100 WBC s. The reference r meredith was not used to interpret this result as normal/abnormal . IPF % (test code = 3104187752) Lab Interpretation (test Abnormal code = 37474-9) [facility] METABOLIC PANEL (NA, K, CL, CO2, GLUCOSE, BUN, CREATININE, CA)2021-09-02 12:06:01 Test Item Value Reference Range Interpretation Comments NA (test code = 132 mmol/L 135-145 L 7047411688) K (test code = 4.4 mmol/L 3.5-5.0 9779190450) CL (test code = 106 mmol/L 98-108 5382437195) CO2 TOTAL (test code = 22 mmol/L 23-31 L 9042996336) AGAP (test code = 2-16 9596148791) BUN (test code = 16 mg/dL 7-23 6248026614) GLUCOSE (test code = 83 mg/dL 70-110 2531589892) CREATININE (test code = 1.33 mg/dL 0.60-1.25 H 3151665511) CALCIUM (test code = 8.8 mg/dL 8.6-10.6 7371021458) eGFR (test code = mL/min/1.73m2 0438052914) GILBERTO (test code = GILBERTO) Association of [...] tests). Lab Interpretation Abnormal (test code = 50381-0) [facility] METABOLIC PANEL (NA, K, CL, CO2, GLUCOSE, BUN, CREATININE, CA)2021-09-02 12:06:01 Test Item Value Reference Range Interpretation Comments NA (test code = 132 mmol/L 135-145 L 5205915128) K (test code = 4.4 mmol/L 3.5-5.0 1907357012) CL (test code = 106 mmol/L 98-108 2286567697) CO2 TOTAL (test code = 22 mmol/L 23-31 L 2464583476) AGAP (test code = 2-16 4689418886) BUN (test code = 16 mg/dL 7-23 7327117751) GLUCOSE (test code = 83 mg/dL 70-110 7315544024) CREATININE (test code = 1.33 mg/dL 0.60-1.25 H 5255570756) CALCIUM (test code = 8.8 mg/dL 8.6-10.6 6024301393) eGFR (test code = mL/min/1.73m2 1234776559) GILBERTO (test code = GILBERTO) Association of [...] tests). Lab Interpretation Abnormal (test code = 44893-8) [facility] METABOLIC PANEL (NA, K, CL, CO2, GLUCOSE, BUN, CREATININE, CA)2021-09-01 21:55:22 Test Item Value Reference Range Interpretation Comments NA (test code = 130 mmol/L 135-145 L 6395858457) K (test code = 4.2 mmol/L 3.5-5.0 2139742529) CL (test code = 103 mmol/L 98-108 7101912288) CO2 TOTAL (test code = 20 mmol/L 23-31 L 5034904203) AGAP (test code = 2-16 0542557295) BUN (test code = 20 mg/dL 7-23 8986211747) GLUCOSE (test code = 106 mg/dL 70-110 2728227717) CREATININE (test code = 1.51 mg/dL 0.60-1.25 H 9718880721) CALCIUM (test code = 8.5 mg/dL 8.6-10.6 L 8420177570) eGFR (test code = mL/min/1.73m2 7554924154) GILBERTO (test code = GILBERTO) Association of [...] tests). Lab Interpretation Abnormal (test code = 77396-9) [facility] METABOLIC PANEL (NA, K, CL, CO2, GLUCOSE, BUN, CREATININE, CA)2021-09-01 21:55:22 Test Item Value Reference Range Interpretation Comments NA (test code = 130 mmol/L 135-145 L 3757732188) K (test code = 4.2 mmol/L 3.5-5.0 1963388239) CL (test code = 103 mmol/L 98-108 7698655979) CO2 TOTAL (test code = 20 mmol/L 23-31 L 4821531698) AGAP (test code = 2-16 0543211601) BUN (test code = 20 mg/dL 7-23 2226518385) GLUCOSE (test code = 106 mg/dL 70-110 1748239572) CREATININE (test code = 1.51 mg/dL 0.60-1.25 H 7110993042) CALCIUM (test code = 8.5 mg/dL 8.6-10.6 L 3509622946) eGFR (test code = mL/min/1.73m2 2030522730) GILBERTO (test code = GILBERTO) Association of [...] tests). Lab Interpretation Abnormal (test code = 54450-2) [facility] [id number] 10:31:32 Test Item Value Reference Range Interpretation Comments Coagulase Negative Positive Negative, See A Staphylococcus (test Comment/Narrative code = 59898-8) GILBERTO (test code = GILBERTO) Coagulase negative [...] contact the Antimicrobial Stewardship Program with questions.Pager: ?[phone] Testing included eleven identification and three resistance marker targets. Lab Interpretation Abnormal (test code = 39562-0) [facility] DNA [id number] 10:31:32 Test Item Value Reference Range Interpretation Comments Coagulase Negative Positive Negative, See A Staphylococcus (test Comment/Narrative code = 59756-9) GILBERTO (test code = GILBERTO) Coagulase negative [...] contact the Antimicrobial Stewardship Program with questions.Pager: ?[phone] Testing included eleven identification and three resistance marker targets. Lab Interpretation Abnormal (test code = 53543-0) [facility] METABOLIC PANEL (NA, K, CL, CO2, GLUCOSE, BUN, CREATININE, CA)2021-09-01 08:38:47 Test Item Value Reference Range Interpretation Comments NA (test code = 130 mmol/L 135-145 L 4648160035) K (test code = 4.0 mmol/L 3.5-5.0 6188322785) CL (test code = 105 mmol/L 98-108 1775146667) CO2 TOTAL (test code = 20 mmol/L 23-31 L 2246341560) AGAP (test code = 2-16 9590122649) BUN (test code = 21 mg/dL 7-23 7576878762) GLUCOSE (test code = 88 mg/dL 70-110 5205922977) CREATININE (test code = 1.31 mg/dL 0.60-1.25 H 3257680659) CALCIUM (test code = 8.5 mg/dL 8.6-10.6 L 7078857348) eGFR (test code = mL/min/1.73m2 9539886113) GILBERTO (test code = GILBERTO) Association of [...] tests). Lab Interpretation Abnormal (test code = 19816-6) [facility] METABOLIC PANEL (NA, K, CL, CO2, GLUCOSE, BUN, CREATININE, CA)2021-09-01 08:38:47 Test Item Value Reference Range Interpretation Comments NA (test code = 130 mmol/L 135-145 L 2877251922) K (test code = 4.0 mmol/L 3.5-5.0 3749119787) CL (test code = 105 mmol/L 98-108 9811309460) CO2 TOTAL (test code = 20 mmol/L 23-31 L 4311766973) AGAP (test code = 2-16 2859206908) BUN (test code = 21 mg/dL 7-23 9349675635) GLUCOSE (test code = 88 mg/dL 70-110 4702688951) CREATININE (test code = 1.31 mg/dL 0.60-1.25 H 8348321677) CALCIUM (test code = 8.5 mg/dL 8.6-10.6 L 2976926933) eGFR (test code = mL/min/1.73m2 4254707118) GILBERTO (test code = GILBERTO) Association of [...] tests). Lab Interpretation Abnormal (test code = 18582-6) [facility] WITH [id number] 08:13:43 Test Item Value Reference Range Interpretation [...] RDW-SD (test code = 43.0 fL 38.5-51.6 08784-9) RDW-CV (test code = 13.7 % 12.1-15.4 788-0) PLT (test code = See_Comment [Automated 777-3) message] The sy stem which generated this result transmitted reference range : 150 - 328 10*3/ ?L. The reference r meredith was not used to interpret this result as normal/abnormal . MPV (test code = 9.9 fL 9.8-13.0 92762-5) NRBC/100 WBC (test See_Comment [Automat ed code = 8030308727) message] The system which generated this result transmitted reference range : 0.0 - 10.0 /100 WBCs. The refer ence range was not u sed to interpret th is result as normal/abnormal . NRBC x10^3 (test code <0.01 See_Comment [Auto mated = 0948192249) message] The s ystem which generated this result transmitted reference range : 10*3/?L. The reference range was not used to interpret this result as normal/abnormal . GRAN MAT (NEUT) % 48.2 % (test code = 770-8) IMM GRAN % (test code 0.40 % = 4449669286) LYMPH % (test code = 39.5 % 736-9) MONO % (test code = 9.0 % 5905-5) EOS % (test code = 2.3 % 713-8) BASO % (test code = 0.6 % 706-2) GRAN MAT x10^3(ANC) 2.35 10*3/uL 1.99-6.95 (test code = 0619093783) IMM GRAN x10^3 (test <0.03 0.00-0.06 code = 1809862090) LYMPH x10^3 (test code 1.93 10*3/uL 1.09-3.23 = 731-0) MONO x10^3 (test code 0.44 10*3/uL 0.36-1.02 = 742-7) EOS x10^3 (test code = 0.11 10*3/uL 0.06-0.53 711-2) BASO x10^3 (test code 0.03 10*3/uL 0.01-0.09 = 704-7) Lab Interpretation Abnormal (test code = 28750-5) [facility] WITH [id number] 08:13:43 Test Item Value Reference Range Interpretation [...] RDW-SD (test code = 43.0 fL 38.5-51.6 57844-6) RDW-CV (test code = 13.7 % 12.1-15.4 788-0) PLT (test code = See_Comment [Automated 777-3) message] The sy stem which generated this result transmitted reference range : 150 - 328 10*3/ ?L. The reference r meredith was not used to interpret this result as normal/abnormal . MPV (test code = 9.9 fL 9.8-13.0 63251-0) NRBC/100 WBC (test See_Comment [Automat ed code = 7210925506) message] The system which generated this result transmitted reference range : 0.0 - 10.0 /100 WBCs. The refer ence range was not u sed to interpret th is result as normal/abnormal . NRBC x10^3 (test code <0.01 See_Comment [Auto mated = 8172225972) message] The s ystem which generated this result transmitted reference range : 10*3/?L. The reference range was not used to interpret this result as normal/abnormal . GRAN MAT (NEUT) % 48.2 % (test code = 770-8) IMM GRAN % (test code 0.40 % = 0115129615) LYMPH % (test code = 39.5 % 736-9) MONO % (test code = 9.0 % 5905-5) EOS % (test code = 2.3 % 713-8) BASO % (test code = 0.6 % 706-2) GRAN MAT x10^3(ANC) 2.35 10*3/uL 1.99-6.95 (test code = 1396369994) IMM GRAN x10^3 (test <0.03 0.00-0.06 code = 6562393248) LYMPH x10^3 (test code 1.93 10*3/uL 1.09-3.23 = 731-0) MONO x10^3 (test code 0.44 10*3/uL 0.36-1.02 = 742-7) EOS x10^3 (test code = 0.11 10*3/uL 0.06-0.53 711-2) BASO x10^3 (test code 0.03 10*3/uL 0.01-0.09 = 704-7) Lab Interpretation Abnormal (test code = 87941-2) [id number] 06:37:20 Test Item Value Reference Range Interpretation Comments MAGNESIUM (test code = 2221107570) 1.9 mg/dL 1.7-2.4 Lab Interpretation (test code = Normal 34192-7) [facility] [id number] 06:37:20 Test Item Value Reference Range Interpretation Comments MAGNESIUM (test code = 5284040952) 1.9 mg/dL 1.7-2.4 Lab Interpretation (test code = Normal 20721-4) [facility] (NA, K, CL, CO2, GLUCOSE, BUN, CREATININE, CA)2021-09-01 02:46:47 Test Item Value Reference Range Interpretation Comments NA (test code = 132 mmol/L 135-145 L 4032988167) K (test code = 4.0 mmol/L 3.5-5.0 7121880074) CL (test code = 102 mmol/L 98-108 3996970399) CO2 TOTAL (test code = 21 mmol/L 23-31 L 9161389923) AGAP (test code = 2-16 1539262319) BUN (test code = 24 mg/dL 7-23 H 1383376373) GLUCOSE (test code = 95 mg/dL 70-110 0284944518) CREATININE (test code = 1.40 mg/dL 0.60-1.25 H 7634838387) CALCIUM (test code = 8.6 mg/dL 8.6-10.6 1003539601) eGFR (test code = mL/min/1.73m2 0363285949) GILBERTO (test code = GILBERTO) Association of [...] tests). Lab Interpretation Abnormal (test code = 13598-3) [facility] METABOLIC PANEL (NA, K, CL, CO2, GLUCOSE, BUN, CREATININE, CA)2021-09-01 02:46:47 Test Item Value Reference Range Interpretation Comments NA (test code = 132 mmol/L 135-145 L 0987335456) K (test code = 4.0 mmol/L 3.5-5.0 2138061251) CL (test code = 102 mmol/L 98-108 1658941770) CO2 TOTAL (test code = 21 mmol/L 23-31 L 8054750535) AGAP (test code = 2-16 0834890927) BUN (test code = 24 mg/dL 7-23 H 2299207599) GLUCOSE (test code = 95 mg/dL 70-110 0101447412) CREATININE (test code = 1.40 mg/dL 0.60-1.25 H 2322484044) CALCIUM (test code = 8.6 mg/dL 8.6-10.6 4319798529) eGFR (test code = mL/min/1.73m2 1358667796) GILBERTO (test code = GILBERTO) Association of [...] tests). Lab Interpretation Abnormal (test code = 29362-6) [facility] [id number] 12:49:48 Test Item Value Reference Range Interpretation Comments LACTIC ACID (test code = 2.02 mmol/L 0.50-2.20 QUE S 0165040967) Lab Interpretation (test code = Normal 76644-4) [facility] [id number] 12:49:48 Test Item Value Reference Range Interpretation Comments LACTIC ACID (test code = 2.02 mmol/L 0.50-2.20 QUE S 9526780122) Lab Interpretation (test code = Normal 99467-1) [facility] (NA, K, CL, CO2, GLUCOSE, BUN, CREATININE, CA)2021-08-31 12:29:06 Test Item Value Reference Range Interpretation Comments NA (test code = 129 mmol/L 135-145 L 9959421398) K (test code = 3.6 mmol/L 3.5-5.0 2302182156) CL (test code = 101 mmol/L 98-108 9411944965) CO2 TOTAL (test code = 18 mmol/L 23-31 L 2494140615) AGAP (test code = 2-16 0239996097) BUN (test code = 35 mg/dL 7-23 H 9627795422) GLUCOSE (test code = 97 mg/dL 70-110 3803024169) CREATININE (test code = 1.58 mg/dL 0.60-1.25 H 6152785422) CALCIUM (test code = 8.3 mg/dL 8.6-10.6 L 2026081892) eGFR (test code = mL/min/1.73m2 5614293190) GILBERTO (test code = GILBERTO) Association of [...] tests). Lab Interpretation Abnormal (test code = 37886-0) [facility] METABOLIC PANEL (NA, K, CL, CO2, GLUCOSE, BUN, CREATININE, CA)2021-08-31 12:29:06 Test Item Value Reference Range Interpretation Comments NA (test code = 129 mmol/L 135-145 L 1715227576) K (test code = 3.6 mmol/L 3.5-5.0 8150934033) CL (test code = 101 mmol/L 98-108 1571071437) CO2 TOTAL (test code = 18 mmol/L 23-31 L 3725134969) AGAP (test code = 2-16 5057426519) BUN (test code = 35 mg/dL 7-23 H 3331048580) GLUCOSE (test code = 97 mg/dL 70-110 9979689991) CREATININE (test code = 1.58 mg/dL 0.60-1.25 H 2186644664) CALCIUM (test code = 8.3 mg/dL 8.6-10.6 L 3341550038) eGFR (test code = mL/min/1.73m2 3763390257) GILBERTO (test code = GILBERTO) Association of [...] tests). Lab Interpretation Abnormal (test code = 51277-2) [facility] [id number] 07:42:44 Test Item Value Reference Range Interpretation Comments TSH (test code = See_Comment [Automated message] 5546343151) The system [employer] generated this result transmitted ref erence range: 0.45 - 4 .70 mIU/L. The refe rence range was not u sed to interpret this result as normal/abnor mal. Lab Interpretation (test Normal code = 89913-1) [facility] Center[facility] [id number] 07:42:44 Test Item Value Reference Range Interpretation Comments TSH (test code = See_Comment [Automated message] 2611691274) The system [employer] generated this result transmitted ref erence range: 0.45 - 4 .70 mIU/L. The refe rence range was not u sed to interpret this result as normal/abnor mal. Lab Interpretation (test Normal code = 22707-5) [facility] (NA, K, CL, CO2, GLUCOSE, BUN, CREATININE, CA)2021-08-31 07:40:43 Test Item Value Reference Range Interpretation Comments NA (test code = 129 mmol/L 135-145 L 7790882482) K (test code = 3.8 mmol/L 3.5-5.0 Slight 9565312353) hemolysis CL (test code = 102 mmol/L 98-108 6911384036) CO2 TOTAL (test code 18 mmol/L 23-31 L = 5307836177) AGAP (test code = 2-16 4422932476) BUN (test code = 46 mg/dL 7-23 H Slight 5496711474) hemolysis GLUCOSE (test code = 100 mg/dL 70-110 2953963058) CREATININE (test code 1.72 mg/dL 0.60-1.25 H = 4736804542) CALCIUM (test code = 8.5 mg/dL 8.6-10.6 L 0685657934) eGFR (test code = mL/min/1.73m2 6826827574) GILBERTO (test code = GILBERTO) Association of [...] tests). Lab Interpretation Abnormal (test code = 43500-3) [facility] METABOLIC PANEL (NA, K, CL, CO2, GLUCOSE, BUN, CREATININE, CA)2021-08-31 07:40:43 Test Item Value Reference Range Interpretation Comments NA (test code = 129 mmol/L 135-145 L 5369116457) K (test code = 3.8 mmol/L 3.5-5.0 Slight 7238187718) hemolysis CL (test code = 102 mmol/L 98-108 7294270242) CO2 TOTAL (test code 18 mmol/L 23-31 L = 9800955479) AGAP (test code = 2-16 6823353181) BUN (test code = 46 mg/dL 7-23 H Slight 6824548146) hemolysis GLUCOSE (test code = 100 mg/dL 70-110 7935558638) CREATININE (test code 1.72 mg/dL 0.60-1.25 H = 5517789622) CALCIUM (test code = 8.5 mg/dL 8.6-10.6 L 4433623697) eGFR (test code = mL/min/1.73m2 2080605449) GILBERTO (test code = GILBERTO) Association of [...] tests). Lab Interpretation Abnormal (test code = 71675-5) [facility] Acid Whole [id number] 07:08:01 Test Item Value Reference Range Interpretation Comments LACTIC ACID (test code = 1.96 mmol/L 0.50-2.20 QUE S 1713598906) Lab Interpretation (test code = Normal 41839-3) [facility] Acid Whole [id number] 07:08:01 Test Item Value Reference Range Interpretation Comments LACTIC ACID (test code = 1.96 mmol/L 0.50-2.20 QUE S 5231067144) Lab Interpretation (test code = Normal 81551-5) [facility] [id number] 06:33:43 Test Item Value Reference Range Interpretation Comments OSMOLALITY (test code = See_Comment [Au tomated message] 9258556041) The system [employer] generated this result transmitted ref erence range: 278 - 30 5 mOsm/kg. The re ference range was not u sed to interpret this result as normal/abnor mal. Lab Interpretation (test Normal code = 23268-2) [facility], SERUM OR [id number] 06:33:43 Test Item Value Reference Range Interpretation Comments OSMOLALITY (test code = See_Comment [Au tomated message] 3183360388) The system [employer] generated this result transmitted ref erence range: 278 - 30 5 mOsm/kg. The re ference range was not u sed to interpret this result as normal/abnor mal. Lab Interpretation (test Normal code = 67385-2) [facility] [id number] 04:28:44 Test Item Value Reference Interpretation Comments Range TROPONIN I (test 0.003 ng/mL See_Comment [Automated code = 2264644559) message] The system which generated this result [...] biotin. Lab Interpretation Normal (test code = 91852-3) [facility]TR[facility] [id number] 04:28:44 Test Item Value Reference Interpretation Comments Range TROPONIN I (test 0.003 ng/mL See_Comment [Automated code = 6451935153) message] The system which generated this result [...] biotin. Lab Interpretation Normal (test code = 05942-2) [facility] (NA, K, CL, CO2, GLUCOSE, BUN, CREATININE, CA)2021-08-31 04:07:42 Test Item Value Reference Range Interpretation Comments NA (test code = 125 mmol/L 135-145 L 1305784242) K (test code = 4.1 mmol/L 3.5-5.0 Slight 2609843188) hemolysis CL (test code = 100 mmol/L 98-108 0537454687) CO2 TOTAL (test code 17 mmol/L 23-31 L = 3862142315) AGAP (test code = 2-16 0730541168) BUN (test code = 52 mg/dL 7-23 H Slight 1198822150) hemolysis GLUCOSE (test code = 94 mg/dL 70-110 8163346177) CREATININE (test code 1.77 mg/dL 0.60-1.25 H = 4863990983) CALCIUM (test code = 8.2 mg/dL 8.6-10.6 L 7799921071) eGFR (test code = mL/min/1.73m2 2973990009) GILBERTO (test code = GILBERTO) Association of [...] tests). Lab Interpretation Abnormal (test code = 70754-6) [facility] METABOLIC PANEL (NA, K, CL, CO2, GLUCOSE, BUN, CREATININE, CA)2021-08-31 04:07:42 Test Item Value Reference Range Interpretation Comments NA (test code = 125 mmol/L 135-145 L 4014883514) K (test code = 4.1 mmol/L 3.5-5.0 Slight 5200417572) hemolysis CL (test code = 100 mmol/L 98-108 0294835800) CO2 TOTAL (test code 17 mmol/L 23-31 L = 6382193966) AGAP (test code = 2-16 5497456503) BUN (test code = 52 mg/dL 7-23 H Slight 6035942198) hemolysis GLUCOSE (test code = 94 mg/dL 70-110 3638226283) CREATININE (test code 1.77 mg/dL 0.60-1.25 H = 2786064378) CALCIUM (test code = 8.2 mg/dL 8.6-10.6 L 6431708214) eGFR (test code = mL/min/1.73m2 9094578534) GILBERTO (test code = GILBERTO) Association of [...] tests). Lab Interpretation Abnormal (test code = 40006-5) [facility] [id number] 00:22:59 Test Item Value Reference Interpretation Comments Range TROPONIN I (test 0.003 ng/mL See_Comment [Automated code = 7438047420) message] The system which generated this result [...] biotin. Lab Interpretation Normal (test code = 96611-3) [facility] [id number] 00:22:59 Test Item Value Reference Range Interpretation Comments NT-proBNP (test code 55 pg/mL See_Comment [Autom ated = 3754970306) message] The system which generated this result transmitted reference range : <=125. The reference range was not used to interpret this result as normal/abnormal . GILBERTO (test code = GILBERTO) Biotin has been reported to cause a negative bias, interpret results relative to patient's use of biotin. Lab Interpretation Normal (test code = 14351-1) [facility] CenterTROP[facility] [id number] 00:22:59 Test Item Value Reference Interpretation Comments Range TROPONIN I (test 0.003 ng/mL See_Comment [Automated code = 3166389782) message] The system which generated this result [...] biotin. Lab Interpretation Normal (test code = 10591-3) [facility] [id number] 00:22:59 Test Item Value Reference Range Interpretation Comments NT-proBNP (test code 55 pg/mL See_Comment [Autom ated = 1264833123) message] The system which generated this result transmitted reference range : <=125. The reference range was not used to interpret this result as normal/abnormal . GILBERTO (test code = GILBERTO) Biotin has been reported to cause a negative bias, interpret results relative to patient's use of biotin. Lab Interpretation Normal (test code = 93284-4) [facility] ([id number])2021-[facility]-31 00:07:17 Test Item Value Reference Range Interpretation Comments NA (test code = 126 mmol/L 135-145 L 4284634276) K (test code = 4.3 mmol/L 3.5-5.0 Slight 7071937917) hemolysis CL (test code = 96 mmol/L 98-108 L 2792179145) CO2 TOTAL (test code 18 mmol/L 23-31 L = 0959233777) AGAP (test code = 2-16 5989555848) BUN (test code = 58 mg/dL 7-23 H Slight 5823057193) hemolysis GLUCOSE (test code = 108 mg/dL 70-110 9068462451) CREATININE (test code 2.11 mg/dL 0.60-1.25 H = 0926169398) TOTAL BILI (test code 0.7 mg/dL 0.1-1.1 = 8756159835) CALCIUM (test code = 9.2 mg/dL 8.6-10.6 0653422928) T PROTEIN (test code 7.6 g/dL 6.3-8.2 = 5353506224) ALBUMIN (test code = 4.9 g/dL 3.5-5.0 7392192365) ALK PHOS (test code = 96 U/L 34-122 Slight 7630371454) hemolysis ALTv (test code = 27 U/L 5-50 1742-6) AST(SGOT) (test code 46 U/L 13-40 H Slight = 4428465675) hemolysis eGFR (test code = mL/min/1.73m2 1570177942) GILBERTO (test code = GILBERTO) Association of [...] tests). Lab Interpretation Abnormal (test code = 68007-1) [facility]. METABOLIC PANEL ([id number])2021-08-31 00:07:17 Test Item Value Reference Range Interpretation Comments NA (test code = 126 mmol/L 135-145 L 2083510798) K (test code = 4.3 mmol/L 3.5-5.0 Slight 5958331079) hemolysis CL (test code = 96 mmol/L 98-108 L 5713218579) CO2 TOTAL (test code 18 mmol/L 23-31 L = 4586191702) AGAP (test code = 2-16 1331180286) BUN (test code = 58 mg/dL 7-23 H Slight 0173825340) hemolysis GLUCOSE (test code = 108 mg/dL 70-110 3300651171) CREATININE (test code 2.11 mg/dL 0.60-1.25 H = 5176846511) TOTAL BILI (test code 0.7 mg/dL 0.1-1.1 = 3599907577) CALCIUM (test code = 9.2 mg/dL 8.6-10.6 0982773643) T PROTEIN (test code 7.6 g/dL 6.3-8.2 = 6299544352) ALBUMIN (test code = 4.9 g/dL 3.5-5.0 5995040820) ALK PHOS (test code = 96 U/L 34-122 Slight 1201655333) hemolysis ALTv (test code = 27 U/L 5-50 1742-6) AST(SGOT) (test code 46 U/L 13-40 H Slight = 6922728267) hemolysis eGFR (test code = mL/min/1.73m2 7697501336) GILBERTO (test code = GILBERTO) Association of [...] tests). Lab Interpretation Abnormal (test code = 16755-5) [facility] WITH [id number] 23:36:10 Test Item Value Reference Range Interpretation [...] RDW-SD (test code = 41.7 fL 38.5-51.6 33303-1) RDW-CV (test code = 13.4 % 12.1-15.4 788-0) PLT (test code = See_Comment [Automated 777-3) message] The sy stem which generated this result transmitted reference range : 150 - 328 10*3/ ?L. The reference r meredith was not used to interpret this result as normal/abnormal . MPV (test code = 10.3 fL 9.8-13.0 27577-7) NRBC/100 WBC (test See_Comment [Automat ed code = 4737722867) message] The system which generated this result transmitted reference range : 0.0 - 10.0 /100 WBCs. The refer ence range was not u sed to interpret th is result as normal/abnormal . NRBC x10^3 (test code <0.01 See_Comment [Auto mated = 0099640817) message] The s ystem which generated this result transmitted reference range : 10*3/?L. The reference range was not used to interpret this result as normal/abnormal . GRAN MAT (NEUT) % 60.6 % (test code = 770-8) IMM GRAN % (test code 0.30 % = 8187005989) LYMPH % (test code = 29.1 % 736-9) MONO % (test code = 8.8 % 5905-5) EOS % (test code = 0.6 % 713-8) BASO % (test code = 0.6 % 706-2) GRAN MAT x10^3(ANC) 4.08 10*3/uL 1.99-6.95 (test code = 1570885894) IMM GRAN x10^3 (test <0.03 0.00-0.06 code = 4259376588) LYMPH x10^3 (test code 1.96 10*3/uL 1.09-3.23 = 731-0) MONO x10^3 (test code 0.59 10*3/uL 0.36-1.02 = 742-7) EOS x10^3 (test code = 0.04 10*3/uL 0.06-0.53 L 711-2) BASO x10^3 (test code 0.04 10*3/uL 0.01-0.09 = 704-7) Lab Interpretation Abnormal (test code = 56146-4) [facility] WITH [id number] 23:36:10 Test Item Value Reference Range Interpretation Comments WBC (test code = See_Comment [Automated 5058-2) message] The sy stem which generated this result transmitted reference range : 4.20 - 10.70 10*3/?L. The reference range was not used to interpret this result as normal/abnormal . RBC (test code = See_Comment [Automated 451-8) message] The sy stem which generated this [...] RDW-SD (test code = 41.7 fL 38.5-51.6 67093-8) RDW-CV (test code = 13.4 % 12.1-15.4 788-0) PLT (test code = See_Comment [Automated 777-3) message] The sy stem which generated this result transmitted reference range : 150 - 328 10*3/ ?L. The reference r meredith was not used to interpret this result as normal/abnormal . MPV (test code = 10.3 fL 9.8-13.0 82632-6) NRBC/100 WBC (test See_Comment [Automat ed code = [id number]) message] The system which generated this result transmitted reference range : 0.0 - 10.0 /100 WBCs. The refer ence range was not u sed to interpret th is result as normal/abnormal . NRBC x10^3 (test code <0.01 See_Comment [Auto mated = [id number]) message] The s ystem which generated this result transmitted reference range : 10*3/?L. The reference range was not used to interpret this result as normal/abnormal . GRAN MAT (NEUT) % 60.6 % (test code = 770-8) IMM GRAN % (test code 0.30 % = 1380854593) LYMPH % (test code = 29.1 % 736-9) MONO % (test code = 8.8 % 5905-5) EOS % (test code = 0.6 % 713-8) BASO % (test code = 0.6 % 706-2) GRAN MAT x10^3(ANC) 4.08 10*3/uL 1.99-6.95 (test code = 8087059927) IMM GRAN x10^3 (test <0.03 0.00-0.06 code = 3987864790) LYMPH x10^3 (test code 1.96 10*3/uL 1.09-3.23 = 731-0) MONO x10^3 (test code 0.59 10*3/uL 0.36-1.02 = 742-7) EOS x10^3 (test code = 0.04 10*3/uL 0.06-0.53 L 711-2) BASO x10^3 (test code 0.04 10*3/uL 0.01-0.09 = 704-7) Lab Interpretation Abnormal (test code = 80343-6) [facility] [id number] 00:24:00 Test Item Value Reference Range Interpretation Comments POCT GP A STREP (test code = Negative Negative - Negative 95719-0) Lab Interpretation (test code = Normal 81177-2) [facility] 11:38:43 Test Item Value Reference Range Interpretation Comments PALB (test code = 79878-6) 25.2 mg/dL 18.0-45.0 Lab Interpretation (test code = Normal 24177-0) [facility] (NA, K, CL, CO2, GLUCOSE, BUN, CREATININE, CA)2021-08-05 11:30:59 Test Item Value Reference Range Interpretation Comments NA (test code = 140 mmol/L 135-145 7248173564) K (test code = 4.2 mmol/L 3.5-5.0 4228118582) CL (test code = 110 mmol/L 98-108 H 5739033562) CO2 TOTAL (test code = 27 mmol/L 23-31 5193070307) AGAP (test code = 2-16 0982555994) BUN (test code = 9 mg/dL 7-23 4345767809) GLUCOSE (test code = 86 mg/dL 70-110 8422278719) CREATININE (test code = 1.51 mg/dL 0.60-1.25 H 7207469185) CALCIUM (test code = 8.5 mg/dL 8.6-10.6 L 1442607974) eGFR (test code = mL/min/1.73m2 7132159612) GILBERTO (test code = GILBERTO) Association of [...] tests). Lab Interpretation Abnormal (test code = 95198-8) [facility] 11:30:59 Test Item Value Reference Range Interpretation Comments MAGNESIUM (test code = 0551589642) 2.0 mg/dL 1.7-2.4 Lab Interpretation (test code = Normal 18639-6) [facility] 11:30:59 Test Item Value Reference Range Interpretation Comments PHOSPHORUS (test code = 6485256757) 5.1 mg/dL 2.5-5.0 H Lab Interpretation (test code = Abnormal 60294-3) [facility] 11:30:59 Test Item Value Reference Range Interpretation Comments ALBUMIN (test code = 7128674583) 3.1 g/dL 3.5-5.0 L Lab Interpretation (test code = Abnormal 17957-3) [facility] [id number] 11:05:58 Test Item Value Reference Range Interpretation [...] RDW-SD (test code = 47.5 fL 38.5-51.6 47733-1) RDW-CV (test code = 14.0 % 12.1-15.4 788-0) PLT (test code = See_Comment [Automated 777-3) message] The sy stem which generated this result transmitted reference range : 150 - 328 10*3/ ?L. The reference r meredith was not used to interpret this result as normal/abnormal . MPV (test code = 9.5 fL 9.8-13.0 L 45715-7) NRBC/100 WBC (test See_Comment [Automat ed code = 6353456818) message] The system which generated this result transmitted reference range : 0.0 - 10.0 /100 WBCs. The refer ence range was not u sed to interpret th is result as normal/abnormal . NRBC x10^3 (test code <0.01 See_Comment [Auto mated = 5242690506) message] The s ystem which generated this result transmitted reference range : 10*3/?L. The reference range was not used to interpret this result as normal/abnormal . GRAN MAT (NEUT) % 52.5 % (test code = 770-8) IMM GRAN % (test code 0.30 % = 6344176588) LYMPH % (test code = 31.1 % 736-9) MONO % (test code = 11.7 % 5905-5) EOS % (test code = 3.9 % 713-8) BASO % (test code = 0.5 % 706-2) GRAN MAT x10^3(ANC) 2.03 10*3/uL 1.99-6.95 (test code = 3477368974) IMM GRAN x10^3 (test <0.03 0.00-0.06 code = 9355725557) LYMPH x10^3 (test code 1.20 10*3/uL 1.09-3.23 = 731-0) MONO x10^3 (test code 0.45 10*3/uL 0.36-1.02 = 742-7) EOS x10^3 (test code = 0.15 10*3/uL 0.06-0.53 711-2) BASO x10^3 (test code <0.03 0.01-0.09 = 704-7) Lab Interpretation Abnormal (test code = 45049-1) [facility] WITH [id number] 12:30:17 Test Item Value Reference Range Interpretation [...] RDW-SD (test code = 49.2 fL 38.5-51.6 66007-8) RDW-CV (test code = 14.3 % 12.1-15.4 788-0) PLT (test code = See_Comment [Automated 777-3) message] The sy stem which generated this result transmitted reference range : 150 - 328 10*3/ ?L. The reference r meredith was not used to interpret this result as normal/abnormal . MPV (test code = 9.2 fL 9.8-13.0 L 14217-3) NRBC/100 WBC (test See_Comment [Automat ed code = 0248397048) message] The system which generated this result transmitted reference range : 0.0 - 10.0 /100 WBCs. The refer ence range was not u sed to interpret th is result as normal/abnormal . NRBC x10^3 (test code <0.01 See_Comment [Auto mated = 3747198419) message] The s ystem which generated this result transmitted reference range : 10*3/?L. The reference range was not used to interpret this result as normal/abnormal . GRAN MAT (NEUT) % 47.2 % (test code = 770-8) IMM GRAN % (test code 0.30 % = 3625759750) LYMPH % (test code = 36.0 % 736-9) MONO % (test code = 12.6 % 5905-5) EOS % (test code = 3.4 % 713-8) BASO % (test code = 0.5 % 706-2) GRAN MAT x10^3(ANC) 1.80 10*3/uL 1.99-6.95 L (test code = 5473355712) IMM GRAN x10^3 (test <0.03 0.00-0.06 code = 8674689275) LYMPH x10^3 (test code 1.37 10*3/uL 1.09-3.23 = 731-0) MONO x10^3 (test code 0.48 10*3/uL 0.36-1.02 = 742-7) EOS x10^3 (test code = 0.13 10*3/uL 0.06-0.53 711-2) BASO x10^3 (test code <0.03 0.01-0.09 = 704-7) Lab Interpretation Abnormal (test code = 57459-7) [facility] METABOLIC PANEL (NA, K, CL, CO2, GLUCOSE, BUN, CREATININE, CA)2021-08-04 12:17:48 Test Item Value Reference Range Interpretation Comments NA (test code = 139 mmol/L 135-145 8286379517) K (test code = 4.3 mmol/L 3.5-5.0 7948337532) CL (test code = 110 mmol/L 98-108 H 5300888164) CO2 TOTAL (test code = 26 mmol/L 23-31 1855676294) AGAP (test code = 2-16 6997866774) BUN (test code = 8 mg/dL 7-23 3161042696) GLUCOSE (test code = 87 mg/dL 70-110 9695879960) CREATININE (test code = 1.50 mg/dL 0.60-1.25 H 6038610990) CALCIUM (test code = 8.4 mg/dL 8.6-10.6 L 0109931531) eGFR (test code = mL/min/1.73m2 0503123758) GILBERTO (test code = GILBERTO) Association of [...] tests). Lab Interpretation Abnormal (test code = 63950-0) [facility] 12:17:48 Test Item Value Reference Range Interpretation Comments MAGNESIUM (test code = 3270422040) 1.9 mg/dL 1.7-2.4 Lab Interpretation (test code = Normal 91752-0) [facility] 12:17:48 Test Item Value Reference Range Interpretation Comments PHOSPHORUS (test code = 2038581655) 4.6 mg/dL 2.5-5.0 Lab Interpretation (test code = Normal 96808-7) [facility] WITH [id number] 11:23:38 Test Item Value Reference Range Interpretation [...] RDW-SD (test code = 47.8 fL 38.5-51.6 64360-8) RDW-CV (test code = 14.1 % 12.1-15.4 788-0) PLT (test code = See_Comment [Automated 777-3) message] The sy stem which generated this result transmitted reference range : 150 - 328 10*3/ ?L. The reference r meredith was not used to interpret this result as normal/abnormal . MPV (test code = 9.3 fL 9.8-13.0 L 66317-3) NRBC/100 WBC (test See_Comment [Automat ed code = 6786369339) message] The system which generated this result transmitted reference range : 0.0 - 10.0 /100 WBCs. The refer ence range was not u sed to interpret th is result as normal/abnormal . NRBC x10^3 (test code <0.01 See_Comment [Auto mated = 8708557706) message] The s ystem which generated this result transmitted reference range : 10*3/?L. The reference range was not used to interpret this result as normal/abnormal . GRAN MAT (NEUT) % 49.3 % (test code = 770-8) IMM GRAN % (test code 0.30 % = 6671821503) LYMPH % (test code = 34.6 % 736-9) MONO % (test code = 12.0 % 5905-5) EOS % (test code = 3.3 % 713-8) BASO % (test code = 0.5 % 706-2) GRAN MAT x10^3(ANC) 1.97 10*3/uL 1.99-6.95 L (test code = 0818973522) IMM GRAN x10^3 (test <0.03 0.00-0.06 code = 3231290838) LYMPH x10^3 (test code 1.38 10*3/uL 1.09-3.23 = 731-0) MONO x10^3 (test code 0.48 10*3/uL 0.36-1.02 = 742-7) EOS x10^3 (test code = 0.13 10*3/uL 0.06-0.53 711-2) BASO x10^3 (test code <0.03 0.01-0.09 = 704-7) Lab Interpretation Abnormal (test code = 89972-6) [facility] (NA, K, CL, CO2, GLUCOSE, BUN, CREATININE, CA)2021-08-03 11:18:55 Test Item Value Reference Range Interpretation Comments NA (test code = 139 mmol/L 135-145 9273427143) K (test code = 4.1 mmol/L 3.5-5.0 0972774389) CL (test code = 110 mmol/L 98-108 H 3827811506) CO2 TOTAL (test code = 27 mmol/L 23-31 4409210628) AGAP (test code = 2-16 0905567595) BUN (test code = 8 mg/dL 7-23 1120157856) GLUCOSE (test code = 93 mg/dL 70-110 0541882745) CREATININE (test code = 1.39 mg/dL 0.60-1.25 H 8413902165) CALCIUM (test code = 8.1 mg/dL 8.6-10.6 L 6313463616) eGFR (test code = mL/min/1.73m2 6112239056) GILBERTO (test code = GILBERTO) Association of [...] tests). Lab Interpretation Abnormal (test code = 41071-5) [facility] 11:18:55 Test Item Value Reference Range Interpretation Comments MAGNESIUM (test code = 3704200588) 2.0 mg/dL 1.7-2.4 Lab Interpretation (test code = Normal 83338-3) [facility] 11:18:55 Test Item Value Reference Range Interpretation Comments PHOSPHORUS (test code = 6275692502) 3.8 mg/dL 2.5-5.0 Lab Interpretation (test code = Normal 01619-7) [facility] (NA, K, CL, CO2, GLUCOSE, BUN, CREATININE, CA)2021-08-02 14:06:51 Test Item Value Reference Range Interpretation Comments NA (test code = 137 mmol/L 135-145 8927554928) K (test code = 4.4 mmol/L 3.5-5.0 7380413338) CL (test code = 108 mmol/L 98-108 1053826220) CO2 TOTAL (test code = 24 mmol/L 23-31 1324188376) AGAP (test code = 2-16 9169178037) BUN (test code = 10 mg/dL 7-23 8372612433) GLUCOSE (test code = 83 mg/dL 70-110 7839192585) CREATININE (test code = 1.48 mg/dL 0.60-1.25 H 6540619590) CALCIUM (test code = 8.4 mg/dL 8.6-10.6 L 0527122235) eGFR (test code = mL/min/1.73m2 4359601160) GILBERTO (test code = GILBERTO) Association of [...] tests). Lab Interpretation Abnormal (test code = 65020-3) [facility] 14:06:51 Test Item Value Reference Range Interpretation Comments MAGNESIUM (test code = 6488045920) 2.1 mg/dL 1.7-2.4 Lab Interpretation (test code = Normal 51673-3) [facility] 14:06:51 Test Item Value Reference Range Interpretation Comments PHOSPHORUS (test code = 1273959977) 4.6 mg/dL 2.5-5.0 Lab Interpretation (test code = Normal 64108-4) [facility] [id number] 12:30:05 Test Item Value Reference Range Interpretation [...] RDW-SD (test code = 48.6 fL 38.5-51.6 05360-0) RDW-CV (test code = 14.3 % 12.1-15.4 788-0) PLT (test code = See_Comment [Automated 777-3) message] The sy stem which generated this result transmitted reference range : 150 - 328 10*3/ ?L. The reference r meredith was not used to interpret this result as normal/abnormal . MPV (test code = 10.0 fL 9.8-13.0 96898-3) NRBC/100 WBC (test See_Comment [Automat ed code = 4063770641) message] The system which generated this result transmitted reference range : 0.0 - 10.0 /100 WBCs. The refer ence range was not u sed to interpret th is result as normal/abnormal . NRBC x10^3 (test code <0.01 See_Comment [Auto mated = 1654235541) message] The s ystem which generated this result transmitted reference range : 10*3/?L. The reference range was not used to interpret this result as normal/abnormal . GRAN MAT (NEUT) % 51.9 % (test code = 770-8) IMM GRAN % (test code 0.60 % = 9824273536) LYMPH % (test code = 32.7 % 736-9) MONO % (test code = 11.3 % 5905-5) EOS % (test code = 3.2 % 713-8) BASO % (test code = 0.3 % 706-2) GRAN MAT x10^3(ANC) 1.80 10*3/uL 1.99-6.95 L (test code = 0276165337) IMM GRAN x10^3 (test <0.03 0.00-0.06 code = 5273446010) LYMPH x10^3 (test code 1.13 10*3/uL 1.09-3.23 = 731-0) MONO x10^3 (test code 0.39 10*3/uL 0.36-1.02 = 742-7) EOS x10^3 (test code = 0.11 10*3/uL 0.06-0.53 711-2) BASO x10^3 (test code <0.03 0.01-0.09 = 704-7) Lab Interpretation Abnormal (test code = 19743-3) [facility] WITH [id number] 10:44:18 Test Item Value Reference Range Interpretation [...] RDW-SD (test code = 48.0 fL 38.5-51.6 22515-0) RDW-CV (test code = 14.1 % 12.1-15.4 788-0) PLT (test code = See_Comment [Automated 777-3) message] The sy stem which generated this result transmitted reference range : 150 - 328 10*3/ ?L. The reference r meredith was not used to interpret this result as normal/abnormal . MPV (test code = 9.5 fL 9.8-13.0 L 69938-3) NRBC/100 WBC (test See_Comment [Automat ed code = 4132665330) message] The system which generated this result transmitted reference range : 0.0 - 10.0 /100 WBCs. The refer ence range was not u sed to interpret th is result as normal/abnormal . NRBC x10^3 (test code <0.01 See_Comment [Auto mated = 1476309769) message] The s ystem which generated this result transmitted reference range : 10*3/?L. The reference range was not used to interpret this result as normal/abnormal . GRAN MAT (NEUT) % 50.8 % (test code = 770-8) IMM GRAN % (test code 0.30 % = 8128971151) LYMPH % (test code = 34.6 % 736-9) MONO % (test code = 10.3 % 5905-5) EOS % (test code = 3.7 % 713-8) BASO % (test code = 0.3 % 706-2) GRAN MAT x10^3(ANC) 1.78 10*3/uL 1.99-6.95 L (test code = 7077262814) IMM GRAN x10^3 (test <0.03 0.00-0.06 code = 4348768582) LYMPH x10^3 (test code 1.21 10*3/uL 1.09-3.23 = 731-0) MONO x10^3 (test code 0.36 10*3/uL 0.36-1.02 = 742-7) EOS x10^3 (test code = 0.13 10*3/uL 0.06-0.53 711-2) BASO x10^3 (test code <0.03 0.01-0.09 = 704-7) Lab Interpretation Abnormal (test code = 91167-4) [facility] METABOLIC PANEL (NA, K, CL, CO2, GLUCOSE, BUN, CREATININE, CA)2021-08-01 10:25:17 Test Item Value Reference Range Interpretation Comments NA (test code = 138 mmol/L 135-145 5887816605) K (test code = 4.1 mmol/L 3.5-5.0 5018876589) CL (test code = 105 mmol/L 98-108 2022709876) CO2 TOTAL (test code = 28 mmol/L 23-31 9130666240) AGAP (test code = 2-16 8374191674) BUN (test code = 13 mg/dL 7-23 7046762575) GLUCOSE (test code = 86 mg/dL 70-110 8523857174) CREATININE (test code = 1.46 mg/dL 0.60-1.25 H 7742311537) CALCIUM (test code = 8.7 mg/dL 8.6-10.6 7038685484) eGFR (test code = mL/min/1.73m2 1646863599) GILBERTO (test code = GILBERTO) Association of [...] tests). Lab Interpretation Abnormal (test code = 67419-7) [facility] 10:25:17 Test Item Value Reference Range Interpretation Comments MAGNESIUM (test code = 9804272631) 1.6 mg/dL 1.7-2.4 L Lab Interpretation (test code = Abnormal 81037-9) [facility] 10:25:17 Test Item Value Reference Range Interpretation Comments PHOSPHORUS (test code = 2875869465) 4.1 mg/dL 2.5-5.0 Lab Interpretation (test code = Normal 75388-8) [facility] 16:18:34 Test Item Value Reference Range Interpretation Comments PALB (test code = 97862-9) 24.3 mg/dL 18.0-45.0 Lab Interpretation (test code = Normal 79137-3) [facility] [id number] 11:20:19 Test Item Value Reference Range Interpretation [...] RDW-SD (test code = 49.6 fL 38.5-51.6 93975-6) RDW-CV (test code = 14.6 % 12.1-15.4 788-0) PLT (test code = See_Comment [Automated 777-3) message] The sy stem which generated this result transmitted reference range : 150 - 328 10*3/ ?L. The reference r meredith was not used to interpret this result as normal/abnormal . MPV (test code = 9.6 fL 9.8-13.0 L 71679-2) NRBC/100 WBC (test See_Comment [Automat ed code = 9776017535) message] The system which generated this result transmitted reference range : 0.0 - 10.0 /100 WBCs. The refer ence range was not u sed to interpret th is result as normal/abnormal . NRBC x10^3 (test code <0.01 See_Comment [Auto mated = 7681782201) message] The s ystem which generated this result transmitted reference range : 10*3/?L. The reference range was not used to interpret this result as normal/abnormal . GRAN MAT (NEUT) % 49.1 % (test code = 770-8) IMM GRAN % (test code 0.30 % = 8880063386) LYMPH % (test code = 36.0 % 736-9) MONO % (test code = 10.6 % 5905-5) EOS % (test code = 3.4 % 713-8) BASO % (test code = 0.6 % 706-2) GRAN MAT x10^3(ANC) 1.76 10*3/uL 1.99-6.95 L (test code = 3649279355) IMM GRAN x10^3 (test <0.03 0.00-0.06 code = 2441700934) LYMPH x10^3 (test code 1.29 10*3/uL 1.09-3.23 = 731-0) MONO x10^3 (test code 0.38 10*3/uL 0.36-1.02 = 742-7) EOS x10^3 (test code = 0.12 10*3/uL 0.06-0.53 711-2) BASO x10^3 (test code <0.03 0.01-0.09 = 704-7) Lab Interpretation Abnormal (test code = 57545-8) [facility] METABOLIC PANEL (NA, K, CL, CO2, GLUCOSE, BUN, CREATININE, CA)2021-07-31 11:11:17 Test Item Value Reference Range Interpretation Comments NA (test code = 135 mmol/L 135-145 3382800025) K (test code = 3.8 mmol/L 3.5-5.0 1893299669) CL (test code = 108 mmol/L 98-108 9651611981) CO2 TOTAL (test code = 24 mmol/L 23-31 9585281622) AGAP (test code = 2-16 9537493111) BUN (test code = 13 mg/dL 7-23 5197944323) GLUCOSE (test code = 88 mg/dL 70-110 0701370112) CREATININE (test code = 1.32 mg/dL 0.60-1.25 H 5477475877) CALCIUM (test code = 8.4 mg/dL 8.6-10.6 L 4383428225) eGFR (test code = mL/min/1.73m2 2265126446) GILBERTO (test code = GILBERTO) Association of [...] tests). Lab Interpretation Abnormal (test code = 01440-0) [facility] 11:11:17 Test Item Value Reference Range Interpretation Comments MAGNESIUM (test code = 3527412866) 1.8 mg/dL 1.7-2.4 Lab Interpretation (test code = Normal 15041-8) [facility] 11:11:17 Test Item Value Reference Range Interpretation Comments PHOSPHORUS (test code = 8807152133) 4.0 mg/dL 2.5-5.0 Lab Interpretation (test code = Normal 72239-7) [facility] (84854)2021-07-30 03:46:32 Test Item Value Reference Range Interpretation Comments NA (test code = 132 mmol/L 135-145 L 3520531621) K (test code = 4.4 mmol/L 3.5-5.0 9077278477) CL (test code = 102 mmol/L 98-108 4728027329) CO2 TOTAL (test code = 24 mmol/L 23-31 2834384708) AGAP (test code = 2-16 0599655890) BUN (test code = 21 mg/dL 7-23 7188860816) GLUCOSE (test code = 95 mg/dL 70-110 9815263107) CREATININE (test code = 1.76 mg/dL 0.60-1.25 H 1591524821) TOTAL BILI (test code = 0.7 mg/dL 0.1-1.4 4508701771) CALCIUM (test code = 8.8 mg/dL 8.6-10.6 0494513019) T PROTEIN (test code = 6.0 g/dL 6.3-8.2 L 9123205035) ALBUMIN (test code = 3.8 g/dL 3.5-5.0 7551923171) ALK PHOS (test code = 67 U/L 34-122 4109351441) ALTv (test code = 47 U/L 5-50 1742-6) AST(SGOT) (test code = 39 U/L 13-40 8391934797) eGFR (test code = mL/min/1.73m2 8590932200) GILBERTO (test code = GILBERTO) Association of [...] tests). Lab Interpretation Abnormal (test code = 08675-3) [facility] 03:19:26 Test Item Value Reference Range Interpretation Comments LIPASE (test code = 9700245071) 58 U/L 0-220 Lab Interpretation (test code = Normal 89403-4) [facility] [id number] 03:07:20 Test Item Value Reference Range Interpretation [...] RDW-SD (test code = 47.4 fL 38.5-51.6 56257-9) RDW-CV (test code = 14.2 % 12.1-15.4 788-0) PLT (test code = See_Comment [Automated 777-3) message] The sy stem which generated this result transmitted reference range : 150 - 328 10*3/ ?L. The reference r meredith was not used to interpret this result as normal/abnormal . MPV (test code = 9.9 fL 9.8-13.0 01297-9) NRBC/100 WBC (test See_Comment [Automat ed code = 2343453573) message] The system which generated this result transmitted reference range : 0.0 - 10.0 /100 WBCs. The refer ence range was not u sed to interpret th is result as normal/abnormal . NRBC x10^3 (test code <0.01 See_Comment [Auto mated = 9264216512) message] The s ystem which generated this result transmitted reference range : 10*3/?L. The reference range was not used to interpret this result as normal/abnormal . GRAN MAT (NEUT) % 61.1 % (test code = 770-8) IMM GRAN % (test code 0.20 % = 8015622670) LYMPH % (test code = 24.4 % 736-9) MONO % (test code = 11.8 % 5905-5) EOS % (test code = 2.2 % 713-8) BASO % (test code = 0.3 % 706-2) GRAN MAT x10^3(ANC) 3.98 10*3/uL 1.99-6.95 (test code = 9122331814) IMM GRAN x10^3 (test <0.03 0.00-0.06 code = 6905695977) LYMPH x10^3 (test code 1.59 10*3/uL 1.09-3.23 = 731-0) MONO x10^3 (test code 0.77 10*3/uL 0.36-1.02 = 742-7) EOS x10^3 (test code = 0.14 10*3/uL 0.06-0.53 711-2) BASO x10^3 (test code <0.03 0.01-0.09 = 704-7) Lab Interpretation Abnormal (test code = 89055-5) [facility] CenterL[facility] Whole [id number] 03:00:47 Test Item Value Reference Range Interpretation Comments LACTIC ACID (test code = 1.45 mmol/L 0.50-2.20 QUE S 2984025499) Lab Interpretation (test code = Normal 86565-4) [facility] [id number] 11:51:00 Test Item Value Reference Range Interpretation [...] Units/L 50.0-136.0 N code = ALKP) PROTHROMBIN [id number] 11:41:00 Test Item Value Reference Range Interpretation Comments PROTHROMBIN TIME 10.9 SECONDS 9.9-12.8 N PATIENT (test code = PTP) INTERNATIONAL NORMAL 0.9 0.89-1.14 N THE INR IS TO BE USED RATIO (test code = ONLY FOR MONITORING INR) ORAL ANTICOAGULANTTH ERAPY. THE FOLLOWING A RE SUGGESTED RANGE S FROM [facility] LEGE OF CHEST PHYSICIANS:ROOPA CATION INR [...] D ANTIBODIES 2.5 - 3.5 CBC W/AUTO [id number] 11:36:00 Test Item Value Reference Range Interpretation [...] NA (test code = 137 mmol/L 135-145 9297278899) K (test code = 4.2 mmol/L 3.5-5.0 5259599583) CL (test code = 109 mmol/L 98-108 H 4400871268) CO2 TOTAL (test code = 25 mmol/L 23-31 3461808683) AGAP (test code = 2-16 0289046111) BUN (test code = 11 mg/dL 7-23 7381322347) GLUCOSE (test code = 83 mg/dL 70-110 9057189511) CREATININE (test code = 1.40 mg/dL 0.60-1.25 H 6391984028) CALCIUM (test code = 8.6 mg/dL 8.6-10.6 5779575862) eGFR (test code = mL/min/1.73m2 4234373994) GILBERTO (test code = GILBERTO) Association of [...] tests). Lab Interpretation Abnormal (test code = 37115-1) [facility] Test Item Value Reference Range Interpretation Comments MAGNESIUM (test code = 4051595506) 1.6 mg/dL 1.7-2.4 L Lab Interpretation (test code = Abnormal 80528-3) [facility] 13:15:26 Test Item Value Reference Range Interpretation Comments PHOSPHORUS (test code = 3077619448) 3.5 mg/dL 2.5-5.0 Lab Interpretation (test code = Normal 45980-1) [facility] [id number] 12:50:41 Test Item Value Reference Range Interpretation [...] RDW-SD (test code = 46.7 fL 38.5-51.6 14111-0) RDW-CV (test code = 14.3 % 12.1-15.4 788-0) PLT (test code = See_Comment [Automated 777-3) message] The sy stem which generated this result transmitted reference range : 150 - 328 10*3/ ?L. The reference r meredith was not used to interpret this result as normal/abnormal . MPV (test code = 9.6 fL 9.8-13.0 L 59817-9) NRBC/100 WBC (test See_Comment [Automat ed code = 0433696456) message] The system which generated this result transmitted reference range : 0.0 - 10.0 /100 WBCs. The refer ence range was not u sed to interpret th is result as normal/abnormal . NRBC x10^3 (test code <0.01 See_Comment [Auto mated = [id number]) message] The s ystem which generated this result transmitted reference range : 10*3/?L. The reference range was not used to interpret this result as normal/abnormal . GRAN MAT (NEUT) % 52.7 % (test code = 770-8) IMM GRAN % (test code 0.40 % = 9307754904) LYMPH % (test code = 33.7 % 736-9) MONO % (test code = 10.4 % 5905-5) EOS % (test code = 2.4 % 713-8) BASO % (test code = 0.4 % 706-2) GRAN MAT x10^3(ANC) 2.65 10*3/uL 1.99-6.95 (test code = 4246404270) IMM GRAN x10^3 (test <0.03 0.00-0.06 code = 4448455898) LYMPH x10^3 (test code 1.69 10*3/uL 1.09-3.23 = 731-0) MONO x10^3 (test code 0.52 10*3/uL 0.36-1.02 = 742-7) EOS x10^3 (test code = 0.12 10*3/uL 0.06-0.53 711-2) BASO x10^3 (test code <0.03 0.01-0.09 = 704-7) Lab Interpretation Abnormal (test code = 22342-1) [facility]59 Test Item Value Reference Range Interpretation Comments MAGNESIUM (test code = 1060109748) 1.6 mg/dL 1.7-2.4 L Lab Interpretation (test code = Abnormal 20375-2) [facility]59 Test Item Value Reference Range Interpretation Comments PHOSPHORUS (test code = 1193668472) 4.0 mg/dL 2.5-5.0 Lab Interpretation (test code = Normal 04813-3) [facility] (NA, K, CL, CO2, GLUCOSE, BUN, CREATININE, CA)2021-07-25 12:09:12 Test Item Value Reference Range Interpretation Comments NA (test code = 139 mmol/L 135-145 4656696558) K (test code = 4.1 mmol/L 3.5-5.0 5485615835) CL (test code = 111 mmol/L 98-108 H 3960393349) CO2 TOTAL (test code = 25 mmol/L 23-31 0075926143) AGAP (test code = 2-16 0169594975) BUN (test code = 13 mg/dL 7-23 1537288172) GLUCOSE (test code = 86 mg/dL 70-110 0206434676) CREATININE (test code = 1.43 mg/dL 0.60-1.25 H 4739150819) CALCIUM (test code = 8.4 mg/dL 8.6-10.6 L 2938835804) eGFR (test code = mL/min/1.73m2 5491563935) GILBERTO (test code = GILBERTO) Association of [...] tests). Lab Interpretation Abnormal (test code = 52818-6) [facility] WITH [id number] 11:44:33 Test Item Value Reference Range Interpretation [...] RDW-SD (test code = 48.9 fL 38.5-51.6 30148-5) RDW-CV (test code = 14.3 % 12.1-15.4 788-0) PLT (test code = See_Comment [Automated 777-3) message] The sy stem which generated this result transmitted reference range : 150 - 328 10*3/ ?L. The reference r meredith was not used to interpret this result as normal/abnormal . MPV (test code = 9.6 fL 9.8-13.0 L 72570-6) NRBC/100 WBC (test See_Comment [Automat ed code = 4972680337) message] The system which generated this result transmitted reference range : 0.0 - 10.0 /100 WBCs. The refer ence range was not u sed to interpret th is result as normal/abnormal . NRBC x10^3 (test code <0.01 See_Comment [Auto mated = 9444463129) message] The s ystem which generated this result transmitted reference range : 10*3/?L. The reference range was not used to interpret this result as normal/abnormal . GRAN MAT (NEUT) % 50.0 % (test code = 770-8) IMM GRAN % (test code 0.20 % = 3174721963) LYMPH % (test code = 36.7 % 736-9) MONO % (test code = 10.0 % 5905-5) EOS % (test code = 2.6 % 713-8) BASO % (test code = 0.5 % 706-2) GRAN MAT x10^3(ANC) 2.11 10*3/uL 1.99-6.95 (test code = 7853468647) IMM GRAN x10^3 (test <0.03 0.00-0.06 code = 4875290394) LYMPH x10^3 (test code 1.55 10*3/uL 1.09-3.23 = 731-0) MONO x10^3 (test code 0.42 10*3/uL 0.36-1.02 = 742-7) EOS x10^3 (test code = 0.11 10*3/uL 0.06-0.53 711-2) BASO x10^3 (test code <0.03 0.01-0.09 = 704-7) Lab Interpretation Abnormal (test code = 92068-2) [facility] WITH [id number] 04:23:56 Test Item Value Reference Range Interpretation [...] RDW-SD (test code = 49.0 fL 38.5-51.6 37196-2) RDW-CV (test code = 14.4 % 12.1-15.4 788-0) PLT (test code = See_Comment [Automated 777-3) message] The sy stem which generated this result transmitted reference range : 150 - 328 10*3/ ?L. The reference r meredith was not used to interpret this result as normal/abnormal . MPV (test code = 9.5 fL 9.8-13.0 L 02426-0) NRBC/100 WBC (test See_Comment [Automat ed code = 1953675646) message] The system which generated this result transmitted reference range : 0.0 - 10.0 /100 WBCs. The refer ence range was not u sed to interpret th is result as normal/abnormal . NRBC x10^3 (test code <0.01 See_Comment [Auto mated = 2088266328) message] The s ystem which generated this result transmitted reference range : 10*3/?L. The reference range was not used to interpret this result as normal/abnormal . GRAN MAT (NEUT) % 49.9 % (test code = 770-8) IMM GRAN % (test code 0.20 % = 1494301932) LYMPH % (test code = 35.2 % 736-9) MONO % (test code = 11.7 % 5905-5) EOS % (test code = 2.4 % 713-8) BASO % (test code = 0.6 % 706-2) GRAN MAT x10^3(ANC) 2.31 10*3/uL 1.99-6.95 (test code = 0988522738) IMM GRAN x10^3 (test <0.03 0.00-0.06 code = 8854120266) LYMPH x10^3 (test code 1.63 10*3/uL 1.09-3.23 = 731-0) MONO x10^3 (test code 0.54 10*3/uL 0.36-1.02 = 742-7) EOS x10^3 (test code = 0.11 10*3/uL 0.06-0.53 711-2) BASO x10^3 (test code 0.03 10*3/uL 0.01-0.09 = 704-7) Lab Interpretation Abnormal (test code = 45740-8) [facility] METABOLIC PANEL (NA, K, CL, CO2, GLUCOSE, BUN, CREATININE, CA)2021-07-24 12:55:24 Test Item Value Reference Range Interpretation Comments NA (test code = 135 mmol/L 135-145 8233085418) K (test code = 4.0 mmol/L 3.5-5.0 1738070367) CL (test code = 109 mmol/L 98-108 H 7361385380) CO2 TOTAL (test code = 22 mmol/L 23-31 L 8755949236) AGAP (test code = 2-16 5575397183) BUN (test code = 12 mg/dL 7-23 8614921866) GLUCOSE (test code = 102 mg/dL 70-110 8100606140) CREATININE (test code = 1.27 mg/dL 0.60-1.25 H 8119114555) CALCIUM (test code = 8.6 mg/dL 8.6-10.6 1515366263) eGFR (test code = mL/min/1.73m2 7575454667) GILBERTO (test code = GILBERTO) Association of [...] tests). Lab Interpretation Abnormal (test code = 45409-5) [facility] 12:55:24 Test Item Value Reference Range Interpretation Comments MAGNESIUM (test code = 4641526244) 1.7 mg/dL 1.7-2.4 Lab Interpretation (test code = Normal 07811-9) [facility] 12:55:24 Test Item Value Reference Range Interpretation Comments PHOSPHORUS (test code = 5202065392) 3.1 mg/dL 2.5-5.0 Lab Interpretation (test code = Normal 43104-0) [facility] (NA, K, CL, CO2, Glucose, BUN, Creatinine, CA)2021-07-23 13:27:55 Test Item Value Reference Range Interpretation Comments NA (test code = 134 mmol/L 135-145 L 6218446014) K (test code = 3.8 mmol/L 3.5-5.0 0265403059) CL (test code = 107 mmol/L 98-108 9251129237) CO2 TOTAL (test code = 21 mmol/L 23-31 L 9313650105) AGAP (test code = 2-16 4862324422) BUN (test code = 18 mg/dL 7-23 6218978039) GLUCOSE (test code = 120 mg/dL 70-110 H 4971649650) CREATININE (test code = 1.46 mg/dL 0.60-1.25 H 0072499564) CALCIUM (test code = 8.7 mg/dL 8.6-10.6 2497680024) eGFR (test code = mL/min/1.73m2 2254829726) GILBERTO (test code = GILBERTO) Association of [...] tests). Lab Interpretation Abnormal (test code = 62362-2) [facility] 13:27:55 Test Item Value Reference Range Interpretation Comments MAGNESIUM (test code = 0543471364) 1.9 mg/dL 1.7-2.4 Lab Interpretation (test code = Normal 33263-9) [facility] 13:27:55 Test Item Value Reference Range Interpretation Comments PHOSPHORUS (test code = 5259138410) 3.5 mg/dL 2.5-5.0 Lab Interpretation (test code = Normal 06303-3) [facility] with Flrezevajukk1065-92-01 13:06:55 Test Item Value Reference Range Interpretation [...] RDW-SD (test code = 47.8 fL 38.5-51.6 46093-2) RDW-CV (test code = 14.4 % 12.1-15.4 788-0) PLT (test code = See_Comment [Automated 777-3) message] The sy stem which generated this result transmitted reference range : 150 - 328 10*3/ ?L. The reference r meredith was not used to interpret this result as normal/abnormal . MPV (test code = 9.4 fL 9.8-13.0 L 88020-3) NRBC/100 WBC (test See_Comment [Automat ed code = 7699287846) message] The system which generated this result transmitted reference range : 0.0 - 10.0 /100 WBCs. The refer ence range was not u sed to interpret th is result as normal/abnormal . NRBC x10^3 (test code <0.01 See_Comment [Auto mated = 3532108785) message] The s ystem which generated this result transmitted reference range : 10*3/?L. The reference range was not used to interpret this result as normal/abnormal . GRAN MAT (NEUT) % 54.7 % (test code = 770-8) IMM GRAN % (test code 0.40 % = 4295050887) LYMPH % (test code = 33.3 % 736-9) MONO % (test code = 9.4 % 5905-5) EOS % (test code = 1.8 % 713-8) BASO % (test code = 0.4 % 706-2) GRAN MAT x10^3(ANC) 2.78 10*3/uL 1.99-6.95 (test code = 1984550473) IMM GRAN x10^3 (test <0.03 0.00-0.06 code = 0993005259) LYMPH x10^3 (test code 1.69 10*3/uL 1.09-3.23 = 731-0) MONO x10^3 (test code 0.48 10*3/uL 0.36-1.02 = 742-7) EOS x10^3 (test code = 0.09 10*3/uL 0.06-0.53 711-2) BASO x10^3 (test code <0.03 0.01-0.09 = 704-7) Lab Interpretation Abnormal (test code = 10502-6) [facility] W/AUTO [id number] 09:48:00 Test Item Value Reference Range Interpretation [...] = MX#) 0.8 k/mm3 0.1-0.8 N GLUCOSE [id number] 06:12:00 Test Item Value Reference Range Interpretation Comments GLUCOSE BEDSIDE (test 129 MG/DL 70-110 H [facility] med by certified code = GLUBED) 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[facility] 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 METABOLIC [id number] 05:21:00 Test Item Value Reference Range Interpretation [...] (test code = POCGLU) 92 MG/DL GLUCOSE [id number] 05:19:00 Test Item Value Reference Range Interpretation Comments GLUCOSE BEDSIDE (test 51 MG/DL 70-110 L [facility] med by certified code = GLUBED) 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[facility] CBC W/AUTO [id number] 14:00:00 Test Item Value Reference Range Interpretation [...] MX#) 0.2 k/mm3 0.1-0.8 N CBC W/AUTO [id number] 00:07:00 Test Item Value Reference Range Interpretation [...] = LY#) 2.4 K/uL 1.0-3.8 N LIVER [id number] 16:14:00 Test Item Value Reference Range Interpretation [...] 65 UNITS/L 25-125 N TAWNY) BASIC METABOLIC [id number] 16:07:00 Test Item Value Reference Range Interpretation [...] POCGLU) 96 MG/DL - XR CHEST 1 [id number] 00:00:00 [facility] : 1970 Sex: MFAX: Sabi Urias MD [phone] [place]: [address] St: PRE Name: DORA MCNEILL HOANG Castro FSED : 1970 Age/S: 51/M [address] [facility] Unit #: [id number] Loc: [place] [address] Phys: Sabi Urias MD Acct: [id number] Dis Date: Status: PRE ER PHONE #: Exam Date: 06/27/2021 1547 FAX #: Reason: Abdominal Pain EXAMS: CPT CODE: [id number] XR CHEST 1 V 43714 PROCEDURE INFORMATION: Exam: XR Chest Exam date [...] By: [email or web address] Orig Print D/T: S: 06/27/2021 (1555) PAGE 1 Signed Report- CT ABD PELVIS W/[id number] 00:00:00 [facility] : 1970 Sex: MName: DORA MCNEILL FSED : 1970 Age/S: 51 / M [address] [facility] Unit #: [id number] Loc: [place] [address] Phys: Sabi Urias MD Acct: [id number] Dis Date: Status: REG ER PHONE #: Exam Date: 06/27/2021 1622 FAX #: Reason: pain in region of colostomy EXAMS: CPT CODE: [id number] CT ABD PELVIS W/CONT 46231 PROCEDURE INFORMATION: Exam: CT Abdomen And Pelvis [...] Signed Report (CONTINUED) Name: DORA MCNEILL FSED :1970 Age/S: 51 / M [address] [facility] Unit #: [id number] Loc: [place] [address] Phys: Sabi Urias MD Acct: [id number] Dis Date: Status: REG ER PHONE #: Exam Date: 06/27/2021 5830 FAX #: Reason: pain in region of colostomy EXAMS: CPT CODE: [id number] CT ABD PELVIS W/CONT 14363 <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 There is no evidence of associated intestinal obstruction. 2. No additional acute CT abnormalities of the abdomen or pelvis are identified. SL:131 at 1650 Reported and signed by: Mraco Hsu M.D. CC: Sabi Urias MD Technologist:Yecenia Carbajal RT(R)(CT) CTDI: DLP: Trnscb Date/Time: 06/27/2021 (165) GarettDMM Orig Print D/T: S: 06/27/2021 (257) PAGE 2 Signed ReportBASIC METABOLIC PANEL (NA, K, CL, CO2, GLUCOSE, BUN, CREATININE, CA)2021-06-03 11:32:40 Test Item Value Reference Range Interpretation Comments NA (test code = 133 mmol/L 135-145 L 2796418006) K (test code = 3.7 mmol/L 3.5-5.0 9181391204) CL (test code = 108 mmol/L 98-108 6022211274) CO2 TOTAL (test code = 20 mmol/L 23-31 L 7427887353) AGAP (test code = 2-16 9410131066) BUN (test code = 11 mg/dL 7-23 0037719022) GLUCOSE (test code = 82 mg/dL 70-110 0161989571) CREATININE (test code = 0.96 mg/dL 0.60-1.25 1917691393) CALCIUM (test code = 8.6 mg/dL 8.6-10.6 6894187611) eGFR (test code = mL/min/1.73m2 8354669990) GILBERTO (test code = GILBERTO) Association of [...] tests). Lab Interpretation Abnormal (test code = 53500-0) [facility] METABOLIC PANEL (NA, K, CL, CO2, GLUCOSE, BUN, CREATININE, CA)2021-06-02 11:45:25 Test Item Value Reference Range Interpretation Comments NA (test code = 133 mmol/L 135-145 L 6300014801) K (test code = 3.7 mmol/L 3.5-5.0 5250468728) CL (test code = 111 mmol/L 98-108 H 2338598836) CO2 TOTAL (test code = 17 mmol/L 23-31 L 2648659661) AGAP (test code = 2-16 1761740713) BUN (test code = 15 mg/dL 7-23 3116325073) GLUCOSE (test code = 88 mg/dL 70-110 9534083417) CREATININE (test code = 0.96 mg/dL 0.60-1.25 8365407667) CALCIUM (test code = 8.1 mg/dL 8.6-10.6 L 1498931888) eGFR (test code = mL/min/1.73m2 5818249169) GILBERTO (test code = GILBERTO) Association of [...] tests). Lab Interpretation Abnormal (test code = 20284-6) [facility] METABOLIC PANEL (NA, K, CL, CO2, GLUCOSE, BUN, CREATININE, CA)2021-06-01 17:06:47 Test Item Value Reference Range Interpretation Comments NA (test code = 131 mmol/L 135-145 L 2683559283) K (test code = 3.9 mmol/L 3.5-5.0 Slight 3302847508) hemolysis CL (test code = 108 mmol/L 98-108 9017674903) CO2 TOTAL (test code 15 mmol/L 23-31 L = 3990623097) AGAP (test code = 2-16 0835019640) BUN (test code = 26 mg/dL 7-23 H Slight 9954183476) hemolysis GLUCOSE (test code = 85 mg/dL 70-110 3123238891) CREATININE (test code 1.26 mg/dL 0.60-1.25 H = 9476896207) CALCIUM (test code = 8.1 mg/dL 8.6-10.6 L 9543320687) eGFR (test code = mL/min/1.73m2 9976649124) GILBERTO (test code = GILBERTO) Association of [...] tests). Lab Interpretation Abnormal (test code = 18435-6) [facility] Whole [id number] 05:45:35 Test Item Value Reference Range Interpretation Comments LACTIC ACID (test code = 0.67 mmol/L 0.50-2.20 9986118414) Lab Interpretation (test code = Normal 22299-5) [facility] [id number] 23:44:55 Test Item Value Reference Interpretation Comments Range TROPONIN I (test 0.004 ng/mL See_Comment [Automated code = 0948046705) message] The system which generated this result [...] biotin. Lab Interpretation Normal (test code = 97858-6) [facility] 23:33:28 Test Item Value Reference Range Interpretation Comments LIPASE (test code = 2427376673) 386 U/L 0-220 H Lab Interpretation (test code = Abnormal 06787-4) [facility] (39682)2021-05-31 23:33:28 Test Item Value Reference Range Interpretation Comments NA (test code = 128 mmol/L 135-145 L 4416430176) K (test code = 4.2 mmol/L 3.5-5.0 4082965007) CL (test code = 102 mmol/L 98-108 0147291479) CO2 TOTAL (test code = 13 mmol/L 23-31 L 0547265965) AGAP (test code = 2-16 0180411319) BUN (test code = 47 mg/dL 7-23 H 1381817062) GLUCOSE (test code = 106 mg/dL 70-110 2209101159) CREATININE (test code = 2.38 mg/dL 0.60-1.25 H 2204348113) TOTAL BILI (test code = 0.6 mg/dL 0.1-1.3 8016170987) CALCIUM (test code = 9.5 mg/dL 8.6-10.6 5217440647) T PROTEIN (test code = 7.3 g/dL 6.3-8.2 7238576875) ALBUMIN (test code = 4.6 g/dL 3.5-5.0 8593234424) ALK PHOS (test code = 110 U/L 34-122 2896911528) ALTv (test code = 29 U/L 5-50 1742-6) AST(SGOT) (test code = 33 U/L 13-40 0718719766) eGFR (test code = mL/min/1.73m2 9376609622) GILBERTO (test code = GILBERTO) Association of [...] tests). Lab Interpretation Abnormal (test code = 51890-7) [facility] WITH [id number] 22:57:06 Test Item Value Reference Range Interpretation Comments WBC (test code = See_Comment [Automated 9631-2) message] The sy stem which generated this result transmitted reference range : 4.20 - 10.70 10*3/?L. The reference range was not used to interpret this result as normal/abnormal . RBC (test code = See_Comment [Automated 311-2) message] The sy stem which generated this [...] RDW-SD (test code = 43.2 fL 38.5-51.6 12619-6) RDW-CV (test code = 13.7 % 12.1-15.4 788-0) PLT (test code = See_Comment [Automated 777-3) message] The sy stem which generated this result transmitted reference range : 150 - 328 10*3/ ?L. The reference r meredith was not used to interpret this result as normal/abnormal . MPV (test code = 10.1 fL 9.8-13.0 61009-9) NRBC/100 WBC (test See_Comment [Automat ed code = 7891047996) message] The system which generated this result transmitted reference range : 0.0 - 10.0 /100 WBCs. The refer ence range was not u sed to interpret th is result as normal/abnormal . NRBC x10^3 (test code <0.01 See_Comment [Auto mated = 3707767820) message] The s ystem which generated this result transmitted reference range : 10*3/?L. The reference range was not used to interpret this result as normal/abnormal . GRAN MAT (NEUT) % 68.1 % (test code = 770-8) IMM GRAN % (test code 0.40 % = 1474833709) LYMPH % (test code = 21.9 % 736-9) MONO % (test code = 8.9 % 5905-5) EOS % (test code = 0.3 % 713-8) BASO % (test code = 0.4 % 706-2) GRAN MAT x10^3(ANC) 5.38 10*3/uL 1.99-6.95 (test code = 7800772952) IMM GRAN x10^3 (test 0.03 10*3/uL 0.00-0.06 code = 4091571703) LYMPH x10^3 (test code 1.73 10*3/uL 1.09-3.23 = 731-0) MONO x10^3 (test code 0.70 10*3/uL 0.36-1.02 = 742-7) EOS x10^3 (test code = <0.03 0.06-0.53 L 711-2) BASO x10^3 (test code 0.03 10*3/uL 0.01-0.09 = 704-7) Lab Interpretation Abnormal (test code = 94864-4) [facility]2021-[facility] 09:49:03 Test Item Value Reference Range Interpretation Comments MAGNESIUM (test code = 8841133424) 2.0 mg/dL 1.7-2.4 Lab Interpretation (test code = Normal 10292-3) [facility]2021-09-28 09:49:03 Test Item Value Reference Range Interpretation Comments PHOSPHORUS (test code = 1435706096) 4.0 mg/dL 2.5-5.0 Lab Interpretation (test code = Normal 34871-3) [facility] (NA, K, CL, CO2, GLUCOSE, BUN, CREATININE, CA)2021-05-21 09:49:03 Test Item Value Reference Range Interpretation Comments NA (test code = 132 mmol/L 135-145 L 2970712234) K (test code = 4.3 mmol/L 3.5-5.0 6209799794) CL (test code = 105 mmol/L 98-108 3859350142) CO2 TOTAL (test code = 21 mmol/L 23-31 L 0121838607) AGAP (test code = 2-16 0599894129) BUN (test code = 25 mg/dL 7-23 H 6113515873) GLUCOSE (test code = 98 mg/dL 70-110 5760487541) CREATININE (test code = 1.20 mg/dL 0.60-1.25 2204767556) CALCIUM (test code = 8.4 mg/dL 8.6-10.6 L 5180860356) eGFR (test code = mL/min/1.73m2 9398168409) GILBERTO (test code = GILBERTO) Association of [...] tests). Lab Interpretation Abnormal (test code = 52650-7) [facility] with Aekhccukuuvt6916-22-69 09:22:22 Test Item Value Reference Range Interpretation Comments WBC (test code = See_Comment [Automated 0379-2) message] The sy stem which generated this [...] RDW-SD (test code = 45.6 fL 38.5-51.6 40504-8) RDW-CV (test code = 13.7 % 12.1-15.4 788-0) PLT (test code = See_Comment [Automated 777-3) message] The sy stem which generated this result transmitted reference range : 150 - 328 10*3/ ?L. The reference r meredith was not used to interpret this result as normal/abnormal . MPV (test code = 9.7 fL 9.8-13.0 L 41813-1) NRBC/100 WBC (test See_Comment [Automat ed code = 8584668645) message] The system which generated this result transmitted reference range : 0.0 - 10.0 /100 WBCs. The refer ence range was not u sed to interpret th is result as normal/abnormal . NRBC x10^3 (test code <0.01 See_Comment [Auto mated = 2084417925) message] The s ystem which generated this result transmitted reference range : 10*3/?L. The reference range was not used to interpret this result as normal/abnormal . GRAN MAT (NEUT) % 49.4 % (test code = 770-8) IMM GRAN % (test code 0.60 % = 5308784028) LYMPH % (test code = 35.2 % 736-9) MONO % (test code = 11.9 % 5905-5) EOS % (test code = 2.1 % 713-8) BASO % (test code = 0.8 % 706-2) GRAN MAT x10^3(ANC) 2.33 10*3/uL 1.99-6.95 (test code = 1081368132) IMM GRAN x10^3 (test 0.03 10*3/uL 0.00-0.06 code = 4986267844) LYMPH x10^3 (test code 1.66 10*3/uL 1.09-3.23 = 731-0) MONO x10^3 (test code 0.56 10*3/uL 0.36-1.02 = 742-7) EOS x10^3 (test code = 0.10 10*3/uL 0.06-0.53 711-2) BASO x10^3 (test code 0.04 10*3/uL 0.01-0.09 = 704-7) Lab Interpretation Abnormal (test code = 23018-7) [facility] 20:21:19 Test Item Value Reference Range Interpretation Comments LIPASE (test code = 0295640781) 307 U/L 0-220 H Lab Interpretation (test code = Abnormal 26002-0) [facility] CenterCOMP[facility]OLIC PANEL (20363)2021-05-20 20:21:19 Test Item Value Reference Range Interpretation Comments NA (test code = 132 mmol/L 135-145 L 4959996354) K (test code = 4.3 mmol/L 3.5-5.0 9551535355) CL (test code = 100 mmol/L 98-108 8839774447) CO2 TOTAL (test code = 18 mmol/L 23-31 L 1465811420) AGAP (test code = 2-16 1960094827) BUN (test code = 32 mg/dL 7-23 H 4586940007) GLUCOSE (test code = 100 mg/dL 70-110 5565884880) CREATININE (test code = 1.76 mg/dL 0.60-1.25 H 4721365037) TOTAL BILI (test code = 0.7 mg/dL 0.1-1.9 9797671058) CALCIUM (test code = 9.6 mg/dL 8.6-10.6 3545501007) T PROTEIN (test code = 7.5 g/dL 6.3-8.2 0034129989) ALBUMIN (test code = 4.7 g/dL 3.5-5.0 3282651261) ALK PHOS (test code = 104 U/L 34-122 3535216139) ALTv (test code = 23 U/L 5-50 1742-6) AST(SGOT) (test code = 29 U/L 13-40 0823634837) eGFR (test code = mL/min/1.73m2 8220468537) GILBERTO (test code = GILBERTO) Association of [...] tests). Lab Interpretation Abnormal (test code = 93238-2) [facility] WITH [id number] 20:15:39 Test Item Value Reference Range Interpretation Comments WBC (test code = See_Comment [Automated message] 6690-2) The system [employer] generated this result transmitted ref erence range: 4.20 - 1 0.70 10*3/?L. The re ference range was not u sed to interpret this result as normal/abnor mal. RBC (test code = See_Comment [Automated message] 789-8) The system [employer] generated this result transmitted ref erence range: 4.26 - 5 .52 10*6/?L. The re ference range was not u sed to interpret this result as normal/abnor mal. HGB (test code = 13.7 g/dL 12.2-16.4 228-7) HCT (test code = 39.8 % 38.4-49.3 4544-3) MCV (test code = 89.4 fL 81.7-95.6 787-2) MCH (test code = 30.8 pg 26.1-32.7 785-6) MCHC (test code = 34.4 g/dL 31.2-35.0 786-4) RDW-SD (test code 44.8 fL 38.5-51.6 = 38065-6) RDW-CV (test code 13.7 % 12.1-15.4 = 788-0) PLT (test code = See_Comment [Automated message] 777-3) The system [employer] generated this result transmitted ref erence range: 150 - 32 8 10*3/?L. The re ference range was not u sed to interpret this result as normal/abnor mal. MPV (test code = 9.8 fL 9.8-13.0 01404-9) NRBC/100 WBC (test See_Comment [Automat ed message] code = [id number]) The syste m which generated this result transmitted ref erence range: 0.0 - 10 .0 /100 WBCs. The refer ence range was not u sed to interpret this result as normal/abnor mal. NRBC x10^3 (test <0.01 See_Comment [Automated message] code = [id number]) The syste m which generated this result transmitted ref erence range: 10*3/?L. The reference range was not used to interpr et this result as normal/abnormal . GRAN MAT (NEUT) % 55.9 % (test code = 770-8) IMM GRAN % (test 0.40 % code = 5736291978) LYMPH % (test code 32.5 % = 736-9) MONO % (test code 9.4 % = 5905-5) EOS % (test code = 1.2 % 713-8) BASO % (test code 0.6 % = 706-2) GRAN MAT 3.87 10*3/uL 1.99-6.95 x10^3(ANC) (test code = 6593682302) IMM GRAN x10^3 0.03 10*3/uL 0.00-0.06 (test code = 6670021189) LYMPH x10^3 (test 2.25 10*3/uL 1.09-3.23 code = 731-0) MONO x10^3 (test 0.65 10*3/uL 0.36-1.02 code = 742-7) EOS x10^3 (test 0.08 10*3/uL 0.06-0.53 code = 711-2) BASO x10^3 (test 0.04 10*3/uL 0.01-0.09 code = 704-7) [facility] [id number] 20:07:57 Test Item Value Reference Range Interpretation Comments LACTIC ACID (test code = 1.81 mmol/L 0.50-2.20 0478635983) Lab Interpretation (test code = Normal 38992-7) [facility] Metabolic Panel (NA, K, CL, CO2, GLUCOSE, BUN, CREATININE, CA)2021-05-08 10:32:35 Test Item Value Reference Range Interpretation Comments NA (test code = 135 mmol/L 135-145 4109676769) K (test code = 4.2 mmol/L 3.5-5.0 0822627118) CL (test code = 106 mmol/L 98-108 3110413709) CO2 TOTAL (test code 23 mmol/L 23-31 = 5229441937) AGAP (test code = 2-16 8781021177) BUN (test code = 22 mg/dL 7-23 1427867544) GLUCOSE (test code = 87 mg/dL 70-110 6322873367) CREATININE (test code 1.21 mg/dL 0.60-1.25 = 6326160711) CALCIUM (test code = 8.7 mg/dL 8.6-10.6 4697553689) eGFR (test code = mL/min/1.73m2 3739660014) GILBERTO (test code = GILBERTO) Association of [...] or urine or abnormalities in imaging tests). [facility] Metabolic Panel (NA, K, CL, CO2, GLUCOSE, BUN, CREATININE, CA)2021-05-08 10:32:35 Test Item Value Reference Range Interpretation Comments NA (test code = 135 mmol/L 135-145 2379907042) K (test code = 4.2 mmol/L 3.5-5.0 2922600072) CL (test code = 106 mmol/L 98-108 6519246644) CO2 TOTAL (test code 23 mmol/L 23-31 = 6221399643) AGAP (test code = 2-16 0773815843) BUN (test code = 22 mg/dL 7-23 7515705880) GLUCOSE (test code = 87 mg/dL 70-110 5934352082) CREATININE (test code 1.21 mg/dL 0.60-1.25 = 2811677972) CALCIUM (test code = 8.7 mg/dL 8.6-10.6 0978763871) eGFR (test code = mL/min/1.73m2 8523870817) GILBERTO (test code = GILBERTO) Association of [...] or urine or abnormalities in imaging tests). [facility] with Ntmdfiqcqyyr8892-30-45 10:12:52 Test Item Value Reference Range Interpretation [...] RDW-SD (test code = 48.4 fL 38.5-51.6 23785-5) RDW-CV (test code = 14.0 % 12.1-15.4 788-0) PLT (test code = See_Comment [Automated 777-3) message] The sy stem which generated this result transmitted reference range : 150 - 328 10*3/ ?L. The reference r meredith was not used to interpret this result as normal/abnormal . MPV (test code = 9.6 fL 9.8-13.0 L 21126-4) NRBC/100 WBC (test See_Comment [Automat ed code = 6467237811) message] The system which generated this result transmitted reference range : 0.0 - 10.0 /100 WBCs. The refer ence range was not u sed to interpret th is result as normal/abnormal . NRBC x10^3 (test code <0.01 See_Comment [Auto mated = 4469186532) message] The s ystem which generated this result transmitted reference range : 10*3/?L. The reference range was not used to interpret this result as normal/abnormal . GRAN MAT (NEUT) % 55.6 % (test code = 770-8) IMM GRAN % (test code 0.20 % = 4633944190) LYMPH % (test code = 31.5 % 736-9) MONO % (test code = 9.9 % 5905-5) EOS % (test code = 2.0 % 713-8) BASO % (test code = 0.8 % 706-2) GRAN MAT x10^3(ANC) 2.76 10*3/uL 1.99-6.95 (test code = 8108428026) IMM GRAN x10^3 (test <0.03 0.00-0.06 code = 2749199393) LYMPH x10^3 (test code 1.56 10*3/uL 1.09-3.23 = 731-0) MONO x10^3 (test code 0.49 10*3/uL 0.36-1.02 = 742-7) EOS x10^3 (test code = 0.10 10*3/uL 0.06-0.53 711-2) BASO x10^3 (test code 0.04 10*3/uL 0.01-0.09 = 704-7) Lab Interpretation Abnormal (test code = 55107-3) [facility] with Flfjfegypulo4000-24-49 10:12:52 Test Item Value Reference Range Interpretation [...] RDW-SD (test code = 48.4 fL 38.5-51.6 05820-0) RDW-CV (test code = 14.0 % 12.1-15.4 788-0) PLT (test code = See_Comment [Automated 777-3) message] The sy stem which generated this result transmitted reference range : 150 - 328 10*3/ ?L. The reference r meredith was not used to interpret this result as normal/abnormal . MPV (test code = 9.6 fL 9.8-13.0 L 77667-7) NRBC/100 WBC (test See_Comment [Automat ed code = 5619235023) message] The system which generated this result transmitted reference range : 0.0 - 10.0 /100 WBCs. The refer ence range was not u sed to interpret th is result as normal/abnormal . NRBC x10^3 (test code <0.01 See_Comment [Auto mated = 7437903207) message] The s ystem which generated this result transmitted reference range : 10*3/?L. The reference range was not used to interpret this result as normal/abnormal . GRAN MAT (NEUT) % 55.6 % (test code = 770-8) IMM GRAN % (test code 0.20 % = 4845414183) LYMPH % (test code = 31.5 % 736-9) MONO % (test code = 9.9 % 5905-5) EOS % (test code = 2.0 % 713-8) BASO % (test code = 0.8 % 706-2) GRAN MAT x10^3(ANC) 2.76 10*3/uL 1.99-6.95 (test code = 8312842376) IMM GRAN x10^3 (test <0.03 0.00-0.06 code = 7191359606) LYMPH x10^3 (test code 1.56 10*3/uL 1.09-3.23 = 731-0) MONO x10^3 (test code 0.49 10*3/uL 0.36-1.02 = 742-7) EOS x10^3 (test code = 0.10 10*3/uL 0.06-0.53 711-2) BASO x10^3 (test code 0.04 10*3/uL 0.01-0.09 = 704-7) Lab Interpretation Abnormal (test code = 52983-7) [facility] METABOLIC PANEL (NA, K, CL, CO2, GLUCOSE, BUN, CREATININE, CA)2021-05-08 01:11:57 Test Item Value Reference Range Interpretation Comments NA (test code = 134 mmol/L 135-145 L 9825300859) K (test code = 4.7 mmol/L 3.5-5.0 8837512001) CL (test code = 100 mmol/L 98-108 7827173429) CO2 TOTAL (test code = 24 mmol/L 23-31 9369451254) AGAP (test code = 2-16 3159750761) BUN (test code = 27 mg/dL 7-23 H 1865161919) GLUCOSE (test code = 94 mg/dL 70-110 9559516246) CREATININE (test code = 1.31 mg/dL 0.60-1.25 H 7718433401) CALCIUM (test code = 9.5 mg/dL 8.6-10.6 9502771523) eGFR (test code = mL/min/1.73m2 5841788752) GILBERTO (test code = GILBERTO) Association of [...] tests). Lab Interpretation Abnormal (test code = 81265-2) [facility] (ALB,T.PRO,BILI T,BU/BC,ALT,AST,ALK PHOS)2021-05-08 01:11:57 Test Item Value Reference Range Interpretation Comments TOTAL BILI (test code = 0888846018) 0.8 mg/dL 0.1-1.1 BILI UNCON (test code = 6551213526) 0.2 mg/dL 0.1-1.1 BILI CONJ (test code = 8344458498) 0.0 mg/dL 0.0-0.3 T PROTEIN (test code = 7371774175) 7.1 g/dL 6.3-8.2 ALBUMIN (test code = 3433923851) 4.4 g/dL 3.5-5.0 ALK PHOS (test code = 7023069979) 88 U/L 34-122 ALTv (test code = 1742-6) 40 U/L 5-50 AST(SGOT) (test code = 0879652411) 38 U/L 13-40 Lab Interpretation (test code = Normal 85227-9) [facility] METABOLIC PANEL (NA, K, CL, CO2, GLUCOSE, BUN, CREATININE, CA)2021-05-08 01:11:57 Test Item Value Reference Range Interpretation Comments NA (test code = 134 mmol/L 135-145 L 5573299894) K (test code = 4.7 mmol/L 3.5-5.0 8381029080) CL (test code = 100 mmol/L 98-108 7995680263) CO2 TOTAL (test code = 24 mmol/L 23-31 0177575576) AGAP (test code = 2-16 3980816060) BUN (test code = 27 mg/dL 7-23 H 0357940101) GLUCOSE (test code = 94 mg/dL 70-110 1550537077) CREATININE (test code = 1.31 mg/dL 0.60-1.25 H 0469102262) CALCIUM (test code = 9.5 mg/dL 8.6-10.6 9573556229) eGFR (test code = mL/min/1.73m2 5338708515) GILBERTO (test code = GILBERTO) Association of [...] tests). Lab Interpretation Abnormal (test code = 02555-5) [facility] (45594[facility] (ALB,T.PRO,BILI T,BU/BC,ALT,AST,ALK PHOS)2021-05-08 01:11:57 Test Item Value Reference Range Interpretation Comments TOTAL BILI (test code = 3851451377) 0.8 mg/dL 0.1-1.1 BILI UNCON (test code = 2469587415) 0.2 mg/dL 0.1-1.1 BILI CONJ (test code = 9771529330) 0.0 mg/dL 0.0-0.3 T PROTEIN (test code = 7822192349) 7.1 g/dL 6.3-8.2 ALBUMIN (test code = 2381536074) 4.4 g/dL 3.5-5.0 ALK PHOS (test code = 5060273239) 88 U/L 34-122 ALTv (test code = 1742-6) 40 U/L 5-50 AST(SGOT) (test code = 8433646850) 38 U/L 13-40 Lab Interpretation (test code = Normal 01841-4) [facility] WITH [id number] 00:59:56 Test Item Value Reference Range Interpretation Comments WBC (test code = See_Comment [Automated 7690-2) message] The sy stem which generated this [...] RDW-SD (test code = 46.9 fL 38.5-51.6 87654-6) RDW-CV (test code = 13.9 % 12.1-15.4 788-0) PLT (test code = See_Comment [Automated 777-3) message] The sy stem which generated this result transmitted reference range : 150 - 328 10*3/ ?L. The reference r meredith was not used to interpret this result as normal/abnormal . MPV (test code = 10.0 fL 9.8-13.0 26519-3) NRBC/100 WBC (test See_Comment [Automat ed code = 0095159746) message] The system which generated this result transmitted reference range : 0.0 - 10.0 /100 WBCs. The refer ence range was not u sed to interpret th is result as normal/abnormal . NRBC x10^3 (test code <0.01 See_Comment [Auto mated = 4705015639) message] The s ystem which generated this result transmitted reference range : 10*3/?L. The reference range was not used to interpret this result as normal/abnormal . GRAN MAT (NEUT) % 53.9 % (test code = 770-8) IMM GRAN % (test code 0.30 % = 3116179381) LYMPH % (test code = 32.0 % 736-9) MONO % (test code = 11.6 % 5905-5) EOS % (test code = 1.6 % 713-8) BASO % (test code = 0.6 % 706-2) GRAN MAT x10^3(ANC) 3.67 10*3/uL 1.99-6.95 (test code = 8557562157) IMM GRAN x10^3 (test <0.03 0.00-0.06 code = 8655889553) LYMPH x10^3 (test code 2.18 10*3/uL 1.09-3.23 = 731-0) MONO x10^3 (test code 0.79 10*3/uL 0.36-1.02 = 742-7) EOS x10^3 (test code = 0.11 10*3/uL 0.06-0.53 711-2) BASO x10^3 (test code 0.04 10*3/uL 0.01-0.09 = 704-7) Lab Interpretation Abnormal (test code = 20984-2) [facility] WITH [id number] 00:59:56 Test Item Value Reference Range Interpretation [...] RDW-SD (test code = 46.9 fL 38.5-51.6 49950-8) RDW-CV (test code = 13.9 % 12.1-15.4 788-0) PLT (test code = See_Comment [Automated 777-3) message] The sy stem which generated this result transmitted reference range : 150 - 328 10*3/ ?L. The reference r meredith was not used to interpret this result as normal/abnormal . MPV (test code = 10.0 fL 9.8-13.0 55853-2) NRBC/100 WBC (test See_Comment [Automat ed code = 9346555918) message] The system which generated this result transmitted reference range : 0.0 - 10.0 /100 WBCs. The refer ence range was not u sed to interpret th is result as normal/abnormal . NRBC x10^3 (test code <0.01 See_Comment [Auto mated = 9340821660) message] The s ystem which generated this result transmitted reference range : 10*3/?L. The reference range was not used to interpret this result as normal/abnormal . GRAN MAT (NEUT) % 53.9 % (test code = 770-8) IMM GRAN % (test code 0.30 % = 3617360472) LYMPH % (test code = 32.0 % 736-9) MONO % (test code = 11.6 % 5905-5) EOS % (test code = 1.6 % 713-8) BASO % (test code = 0.6 % 706-2) GRAN MAT x10^3(ANC) 3.67 10*3/uL 1.99-6.95 (test code = 3050458820) IMM GRAN x10^3 (test <0.03 0.00-0.06 code = 9606057166) LYMPH x10^3 (test code 2.18 10*3/uL 1.09-3.23 = 731-0) MONO x10^3 (test code 0.79 10*3/uL 0.36-1.02 = 742-7) EOS x10^3 (test code = 0.11 10*3/uL 0.06-0.53 711-2) BASO x10^3 (test code 0.04 10*3/uL 0.01-0.09 = 704-7) Lab Interpretation Abnormal (test code = 15749-5) [facility] W/AUTO [id number] 09:20:00 Test Item Value Reference Range Interpretation [...] (test code NO = MDIFF) CBC W/AUTO [id number] 08:59:00 Test Item Value Reference Range Interpretation [...] REQUIRED (test code = MDIFF) BASIC METABOLIC [id number] 08:21:00 Test Item Value Reference Range Interpretation [...] 8.4 mg/dL 8.0-10.5 N CA) BASIC METABOLIC [id number] 08:34:00 Test Item Value Reference Range Interpretation [...] 8.4 mg/dL 8.0-10.5 N CA) CBC W/AUTO [id number] 07:41:00 Test Item Value Reference Range Interpretation [...] = MDIFF) UA RFLX MICR CULT IF [id number] 10:10:00 Test Item Value Reference Range Interpretation [...] Suprapubic Pain Temperature > 100.4 FSpec[facility] Description[facility] [id number] 04:13:00 Test Item Value Reference Range Interpretation [...] mg/dL 8.0-10.5 N CA) Coronavirus 2019 nCoV Krrzoss1104-19-28 22:03:00 Test Item Value Reference Range Interpretation Comments Coronavirus 2019 Negative Negative Performed b y certified nCoV 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 Negative result s do not preclude TUMG-JiZ-3conlf tion and should not be u sed as the sole basis forp atient management deci sions. Negative result s should beconsidered in the context of a patient's recent exposures,histo ry, presence of clinical sig ns and symptoms consis tentwith COVID-19. CBC W/AUTO [id number] 21:11:00 Test Item Value Reference Range Interpretation [...] MX#) 0.6 k/mm3 0.1-0.8 N BASIC METABOLIC [id number] 19:00:00 Test Item Value Reference Range Interpretation [...] POCGLU) 92 MG/DL - CT ABD PELVIS W/CRGM1970 00:00:00 [facility] : 1970 Sex: MName: DORA MCNEILL FSED : 1970 Age/S: 51 / M [address] [facility] Unit #: [id number] Loc: [place] [address] Phys: Montserrat Benoit MD Acct: [id number] Dis Date: Status: REG KARLIE #: Exam Date: 04/28/20214 FAX #: Reason: epigastric and LLQ pain, R-sided colostomy EXAMS:CPT CODE: [id number] CT ABD PELVIS W/CONT 90170 PROCEDURE INFORMATION: Exam: CT Abdomen And Pelvis [...] Name: OPALDORA Erazo FSED : 1970 Age/S: 51/ M [address] [facility] Unit #: [id number] Loc: [place] [address] Phys: Montserrat Benoit MD Acct: [id number] Dis Date: Status: REG ER PHONE #: Exam Date: 04/28/2021 1914 FAX #: Reason: epigastricand LLQ pain, R-sided colostomy EXAMS: CPT CODE: [id number] CT ABD PELVIS W/CONT 45459 <Continued> Reproductive: Unremarkable as visualized. Bones/joints: Unremarkable. No acute fracture. Soft tissues: Unremarkable. IMPRESSION: 1. 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 2. Mild long segment bowel wall thickening/mucosal prominence compatible with an enteritis. No evidence for obstruction. at 1955 Reported and signed by: Hector Nichols M.D. CC: Montserrat Benoit MD Technologist:Stephanie Albrecht RT(R)(CT) CTDI: DLP: Trnscb Date/Time: 04/28/2021 (1955) [facility] Orig Print D/T: S: 04/28/2021 (1955) PAGE 2 Signed ReportBasic Metabolic Panel (NA, K, CL, CO2, GLUCOSE, BUN, CREATININE, CA)2020-08-23 10:29:00 Test Item Value Reference Range Interpretation Comments NA (test code = 139 mmol/L 135-145 4263824587) K (test code = 4.0 mmol/L 3.5-5 1277043615) CL (test code = 108 mmol/L 98-108 0339489265) CO2 TOTAL (test code = 22 mmol/L 23-31 L 8417130817) AGAP (test code = 2-16 2883821053) BUN (test code = 25 mg/dL 7-23 H 7969044969) GLUCOSE (test code = 91 mg/dL 70-110 1150404907) CREATININE (test code = 1.14 mg/dL 0.6-1.25 0668764044) CALCIUM (test code = 8.9 mg/dL 8.6-10.6 3089345862) eGFR Calculation mL/min/1.73m2 (Non-) (test code = 8881130033) eGFR Calculation mL/min/1.73m2 () (test code = 3680874766) GILBERTO (test code = GILBERTO) Association of [...] tests). Lab Interpretation Abnormal (test code = 36277-3) [facility] / [id number] 10:13:00 Test Item Value Reference Range Interpretation Comments WBC (test code = 6690-2) See_Comment [A utomated message] The system [employer] generated this result transmit dain reference range : 4.20 - 10.70 10*3/?L. The reference range was not used to interpret this result as normal/abnormal . RBC (test code = 789-8) See_Comment L [Au tomated message] The system [employer] generated this result transmit dain reference [...] 777-3) See_Comment [Au tomated message] The system [facility] generated this result transmit dain reference range : 150 - 328 10*3/?L. The reference range was not used to interpret this result as normal/abnormal . MPV (test code = 9.0 fL 9.8-13 L 70107-3) RDW-CV (test code = 18.7 % 12.1-15.4 H 788-0) RDW-SD (test code = 59.7 fL 38.5-51.6 H 68236-6) NRBC x10^3 (test code = <0.01 See_Comment [Au tomated message] 4575712694) The system [facility] generated this result transmit dain reference range : 10*3/?L. The reference range was not used to interpret this result as normal/abnormal . NRBC/100 WBC (test code See_Comment [Au tomated message] = 0000335376) The system [facility] generated this result transmit dain reference range : 0.0 - 10.0 /100 WBC s. The reference r meredith was not used to interpret this result as normal/abnormal . IPF % (test code = 9028384729) Lab Interpretation (test Abnormal code = 38267-1) [facility]OVID[facility] (ID NOW RAPID TESTING)2020-08-23 00:56:00 Test Item Value Reference Range Interpretation Comments SARS-CoV-2 Rapid ID NOW Not Detected Not Detected (test code = 45225-4) GILBERTO (test code = GILBERTO) ID NOW COVID-19 Assay is an isothermal nucleic acid amplification test intended for the qualitative detection of nucleic acid from SARS-CoV-2 viral RNA in nasopharyngeal ([employer]ERGLASS MODEL [employer]) specimens. It is used under Emergency Use [...] indicated. Lab Interpretation Normal (test code = 46570-7) [facility] Metabolic Panel (NA, K, CL, CO2, GLUCOSE, BUN, CREATININE, CA)2020-08-22 22:36:00 Test Item Value Reference Range Interpretation Comments NA (test code = 133 mmol/L 135-145 L 2474853913) K (test code = 4.5 mmol/L 3.5-5 3864187029) CL (test code = 104 mmol/L 98-108 1489174121) CO2 TOTAL (test code = 25 mmol/L 23-31 1755314968) AGAP (test code = 2-16 7007019837) BUN (test code = 27 mg/dL 7-23 H 0933439367) GLUCOSE (test code = 94 mg/dL 70-110 9290268890) CREATININE (test code = 1.33 mg/dL 0.6-1.25 H 1441132051) CALCIUM (test code = 9.5 mg/dL 8.6-10.6 0382511656) eGFR Calculation mL/min/1.73m2 (Non-) (test code = 1323597968) eGFR Calculation mL/min/1.73m2 () (test code = 4842370686) GILBERTO (test code = GILBERTO) Association of [...] tests). Lab Interpretation Abnormal (test code = 29650-5) [facility] (ALB, T.PRO, BILI T, BU/BC, ALT, AST, ALK PHOS)2020-08-22 22:36:00 Test Item Value Reference Range Interpretation Comments TOTAL BILI (test code = 9256547806) 0.4 mg/dL 0.1-1.1 BILI UNCON (test code = 1244315098) 0.1 mg/dL 0.1-1.1 BILI CONJ (test code = 5667827307) 0.0 mg/dL 0-0.3 T PROTEIN (test code = 0643634450) 6.8 g/dL 6.3-8.2 ALBUMIN (test code = 6198433170) 4.0 g/dL 3.5-5 ALK PHOS (test code = 6606383012) 78 U/L 34-122 ALTv (test code = 1742-6) 35 U/L 5-50 AST(SGOT) (test code = 6078911485) 29 U/L 13-40 Lab Interpretation (test code = Normal 11221-0) [facility] Center[facility] with [id number] 22:15:00 Test Item Value Reference Range Interpretation [...] (test code = 60.6 fL 38.5-51.6 H 47558-8) RDW-CV (test code = 19.0 % 12.1-15.4 H 788-0) PLT (test code = See_Comment [Automated 777-3) message] The sy stem which generated this result transmitted reference range : 150 - 328 10*3/ ?L. The reference r meredith was not used to interpret this result as normal/abnormal . MPV (test code = 9.3 fL 9.8-13 L 33338-5) NRBC/100 WBC (test See_Comment [Automat ed code = 1619292978) message] The system which generated this result transmitted reference range : 0.0 - 10.0 /100 WBCs. The refer ence range was not u sed to interpret th is result as normal/abnormal . NRBC x10^3 (test code <0.01 See_Comment [Auto mated = 6825836492) message] The s ystem which generated this result transmitted reference range : 10*3/?L. The reference range was not used to interpret this result as normal/abnormal . GRAN MAT (NEUT) % 58.6 % (test code = 770-8) IMM GRAN % (test code 0.60 % = 8872239621) LYMPH % (test code = 28.2 % 736-9) MONO % (test code = 9.5 % 5905-5) EOS % (test code = 2.4 % 713-8) BASO % (test code = 0.7 % 706-2) GRAN MAT x10^3(ANC) 3.14 10*3/uL 1.99-6.95 (test code = 2756182721) IMM GRAN x10^3 (test 0.03 10*3/uL 0-0.06 code = 9806031015) LYMPH x10^3 (test code 1.51 10*3/uL 1.09-3.23 = 731-0) MONO x10^3 (test code 0.51 10*3/uL 0.36-1.02 = 742-7) EOS x10^3 (test code = 0.13 10*3/uL 0.06-0.53 711-2) BASO x10^3 (test code 0.04 10*3/uL 0.01-0.09 = 704-7) Lab Interpretation Abnormal (test code = 74497-0) [facility] CenterCT SOFT TISSUE NECK W [id number] 00:47:10Impression: 1. Patent aerodigestive tract.2. No discrete [...] glands are normal. Thyroid gland is unremarkable. Applications Architect spaces are normal. Buccal spaces are normal. [...] submandibular glands are normal. Thyroid gland is unremarkable.Applications Architect spaces are normal. Buccal spaces are normal. [...] or abscess is identified.RL: [id number] of Report [facility]COVID[facility] (ID NOW RAPID TESTING)2020-07-09 23:23:00 Test Item Value Reference Range Interpretation Comments SARS-CoV-2 Rapid ID NOW Not Detected Not Detected (test code = 70120-3) GILBERTO (test code = GILBERTO) ID NOW COVID-19 Assay is an isothermal nucleic acid amplification test intended for the qualitative detection of nucleic acid from SARS-CoV-2 viral RNA in nasopharyngeal ([employer] MODEL [employer]) specimens. It is used under Emergency Use [...] indicated. Lab Interpretation Normal (test code = 79682-0) [facility] CenterUrinalysis2020-11-16 23:21:00 Test Item Value Reference Range Interpretation Comments APPEARANCE (test code = Clear Clear 9274394482) COLOR (test code = Yellow Yellow 3530850941) PH (test code = 4.8-8.0 6870440786) SP GRAVITY (test code = 1.003-1.030 1558153219) GLU U QUAL (test code = Normal Normal 5957062164) BLOOD (test code = Negative Negative 4695454274) KETONES (test code = Negative Negative 5500813826) PROTEIN (test code = 30 mg/dL Negative A 2887-8) UROBILIN (test code = Normal Normal 4417376373) BILIRUBIN (test code = Negative Negative 2019462464) NITRITE (test code = Negative Negative 9938438549) LEUK ROGER (test code = Negative Negative 5890883355) RBC/HPF (test code = <1 See_Comment [Autom ated message] 8840380151) The system [employer] generated this result transmitted ref erence range: 0 - 3 HP F. The reference range was not used to int erpret this result as normal/abnormal . WBC/HPF (test code = See_Comment [Autom ated message] 5331658087) The system [employer] generated this result transmitted ref erence range: 0 - 5 HP F. The reference range was not used to int erpret this result as normal/abnormal . BACTERIA (test code = Negative Negative 7410428381) MUCOUS (test code = Moderate Negative LPF A 1097692109) HYAL CAST (test code = See_Comment H [Aut omated message] 5324291672) The system [employer] generated this result transmitted ref erence range: <=2 LPF. The reference range was not used to int erpret this result as normal/abnormal . Lab Interpretation (test Abnormal code = 03435-5) [facility] (NA, K, CL, CO2, GLUCOSE, BUN, CREATININE, CA)2020-07-09 23:20:00 Test Item Value Reference Range Interpretation Comments NA (test code = 135 mmol/L 135-145 [id number]) K (test code = 3.9 mmol/L 3.5-5 7581640250) CL (test code = 107 mmol/L 98-108 4806504321) CO2 TOTAL (test code = 20 mmol/L 23-31 L 4006309007) AGAP (test code = 2-16 0753371672) BUN (test code = 27 mg/dL 7-23 H 2649457742) GLUCOSE (test code = 86 mg/dL 70-110 6649717223) CREATININE (test code = 1.11 mg/dL 0.6-1.25 3112111822) CALCIUM (test code = 9.0 mg/dL 8.6-10.6 2814861870) eGFR Calculation mL/min/1.73m2 (Non-) (test code = 8495053292) eGFR Calculation mL/min/1.73m2 () (test code = 6114735718) GILBERTO (test code = GILBERTO) Association of [...] tests). Lab Interpretation Abnormal (test code = 76056-0) [facility] [id number] 23:11:00 Test Item Value Reference Range Interpretation Comments Streptococcus pyogenes (group A) Negative Negative antigen (test code = 25839-1) Lab Interpretation (test code = Normal 30939-9) [facility] with Nklsbilxsrlk3690-27-42 23:02:00 Test Item Value Reference Range Interpretation [...] (test code = 55.5 fL 38.5-51.6 H 11040-7) RDW-CV (test code = 18.9 % 12.1-15.4 H 788-0) PLT (test code = See_Comment [Automated 777-3) message] The sy stem which generated this result transmitted reference range : 150 - 328 10*3/ ?L. The reference r meredith was not used to interpret this result as normal/abnormal . MPV (test code = 8.9 fL 9.8-13 L 81600-2) NRBC/100 WBC (test See_Comment [Automat ed code = 5489713089) message] The system which generated this result transmitted reference range : 0.0 - 10.0 /100 WBCs. The refer ence range was not u sed to interpret th is result as normal/abnormal . NRBC x10^3 (test code <0.01 See_Comment [Auto mated = 8835053055) message] The s ystem which generated this result transmitted reference range : 10*3/?L. The reference range was not used to interpret this result as normal/abnormal . GRAN MAT (NEUT) % 59.4 % (test code = 770-8) IMM GRAN % (test code 0.20 % = 2050007098) LYMPH % (test code = 29.9 % 736-9) MONO % (test code = 9.0 % 5905-5) EOS % (test code = 1.2 % 713-8) BASO % (test code = 0.3 % 706-2) GRAN MAT x10^3(ANC) 3.56 10*3/uL 1.99-6.95 (test code = 9479458866) IMM GRAN x10^3 (test <0.03 0-0.06 code = 2990012247) LYMPH x10^3 (test code 1.79 10*3/uL 1.09-3.23 = 731-0) MONO x10^3 (test code 0.54 10*3/uL 0.36-1.02 = 742-7) EOS x10^3 (test code = 0.07 10*3/uL 0.06-0.53 711-2) BASO x10^3 (test code <0.03 0.01-0.09 = 704-7) Lab Interpretation Abnormal (test code = 15347-9) [facility]00 Test Item Value Reference Range Interpretation Comments APPEARANCE (test code = Hazy Clear A 3556025167) COLOR (test code = Yellow Yellow 9690838028) PH (test code = 4.8-8.0 1289564019) SP GRAVITY (test code = 1.003-1.030 H 6348392516) GLU U QUAL (test code = Normal Normal 0265841229) BLOOD (test code = Negative Negative 6557939856) KETONES (test code = Negative Negative 0971347822) PROTEIN (test code = Negative Negative 2887-8) UROBILIN (test code = Normal Normal 5027012096) BILIRUBIN (test code = Negative Negative 0823506417) NITRITE (test code = Negative Negative 5117421498) LEUK ROGER (test code = Negative Negative 7941985413) RBC/HPF (test code = See_Comment H [Autom ated message] 3629927552) The system [employer] generated this result transmitted ref erence range: 0 - 3 HP F. The reference range was not used to int erpret this result as normal/abnormal . WBC/HPF (test code = See_Comment [Autom ated message] 4106957347) The system [employer] generated this result transmitted ref erence range: 0 - 5 HP F. The reference range was not used to int erpret this result as normal/abnormal . BACTERIA (test code = Negative Negative 0672163764) MUCOUS (test code = Moderate Negative LPF A 3034854633) CA OXALATE (test code = See_Comment [Au tomated message] 5766535982) The system [employer] generated this result transmitted ref erence range: <=1 HPF. The reference range was not used to int erpret this result as normal/abnormal . SPERM (test code = See_Comment H [Automat ed message] 7940080991) The system [employer] generated this result transmitted ref erence range: <=1 HPF. The reference range was not used to int erpret this result as normal/abnormal . HYAL CAST (test code = See_Comment H [Aut omated message] 0719308205) The system [employer] generated this result transmitted ref erence range: <=2 LPF. The reference range was not used to int erpret this result as normal/abnormal . Lab Interpretation (test Abnormal code = 85156-7) [facility] CenterCT [facility] PEL[facility] W [id number] 13:22:00CT Abdomen and Pelvis with intravenous contrast. [...] sign of infection. Left seminal vesicleshowed no significantenhancement.[facility] [id number] 12:40:00 Test Item Value Reference Range Interpretation Comments TROPONIN I (test <0.012 See_Comment [Automated code = 6053714618) message] The system which generated this result [...] ? Lab Interpretation Normal (test code = 69973-9) [facility] CenterBasi Metabolic Panel (NA, K, CL, CO2, GLUCOSE, BUN, CREATININE, CA)2020-06-05 12:28:00 Test Item Value Reference Range Interpretation Comments NA (test code = 139 mmol/L 135-145 5086035783) K (test code = 4.4 mmol/L 3.5-5 5302368228) CL (test code = 112 mmol/L 98-108 H 4039148825) CO2 TOTAL (test code = 24 mmol/L 23-31 8796815796) AGAP (test code = 2-16 5635945642) BUN (test code = 23 mg/dL 7-23 1218600492) GLUCOSE (test code = 88 mg/dL 70-110 8733650260) CREATININE (test code = 0.96 mg/dL 0.6-1.25 4237674529) CALCIUM (test code = 9.5 mg/dL 8.6-10.6 7492531688) eGFR Calculation mL/min/1.73m2 (Non-) (test code = 5178160989) eGFR Calculation mL/min/1.73m2 () (test code = 0277506553) GILBERTO (test code = GILBERTO) Association of [...] tests). Lab Interpretation Abnormal (test code = 16485-8) [facility] CenterHepatic Function Panel (ALB, T.PRO, BILI T, BU/BC, ALT, AST, ALK PHOS)2020-06-05 12:28:00 Test Item Value Reference Range Interpretation Comments TOTAL BILI (test code = 3645130193) 0.5 mg/dL 0.1-1.1 BILI UNCON (test code = 4869406627) 0.3 mg/dL 0.1-1.1 BILI CONJ (test code = 3282916216) 0.0 mg/dL 0-0.3 T PROTEIN (test code = 9665691910) 6.6 g/dL 6.3-8.2 ALBUMIN (test code = 6514291503) 3.7 g/dL 3.5-5 ALK PHOS (test code = 0918395261) 79 U/L 34-122 ALTv (test code = 1742-6) 23 U/L 5-50 AST(SGOT) (test code = 7205427730) 27 U/L 13-40 Lab Interpretation (test code = Normal 51467-1) [facility] CenterLipase [id number] 12:28:00 Test Item Value Reference Range Interpretation Comments LIPASE (test code = 1783524743) 150 U/L 0-220 Lab Interpretation (test code = Normal 46430-9) [facility] CenterCBC with [id number] 12:11:00 Test Item Value Reference Range Interpretation [...] (test code = 62.2 fL 38.5-51.6 H 44619-1) RDW-CV (test code = 20.0 % 12.1-15.4 H 788-0) PLT (test code = See_Comment [Automated 777-3) message] The sy stem which generated this result transmitted reference range : 150 - 328 10*3/ ?L. The reference r meredith was not used to interpret this result as normal/abnormal . MPV (test code = 10.0 fL 9.8-13 33791-0) NRBC/100 WBC (test See_Comment [Automat ed code = 8469547197) message] The system which generated this result transmitted reference range : 0.0 - 10.0 /100 WBCs. The refer ence range was not u sed to interpret th is result as normal/abnormal . NRBC x10^3 (test code <0.01 See_Comment [Auto mated = 3855460267) message] The s ystem which generated this result transmitted reference range : 10*3/?L. The reference range was not used to interpret this result as normal/abnormal . GRAN MAT (NEUT) % 65.7 % (test code = 770-8) IMM GRAN % (test code 0.30 % = 6305600490) LYMPH % (test code = 21.2 % 736-9) MONO % (test code = 10.0 % 5905-5) EOS % (test code = 2.3 % 713-8) BASO % (test code = 0.5 % 706-2) GRAN MAT x10^3(ANC) 3.99 10*3/uL 1.99-6.95 (test code = 3224287338) IMM GRAN x10^3 (test <0.03 0-0.06 code = 8990425131) LYMPH x10^3 (test code 1.29 10*3/uL 1.09-3.23 = 731-0) MONO x10^3 (test code 0.61 10*3/uL 0.36-1.02 = 742-7) EOS x10^3 (test code = 0.14 10*3/uL 0.06-0.53 711-2) BASO x10^3 (test code 0.03 10*3/uL 0.01-0.09 = 704-7) Lab Interpretation Abnormal (test code = 98224-4) [facility] CenterLactic Acid Whole [id number] 12:04:00 Test Item Value Reference Range Interpretation Comments LACTIC ACID (test code = 1.23 mmol/L 8691380418) [facility] CenterIR ABSCESS DRAIN [id number] 14:57:23 Successful abscessogram demonstrated unchanged position of [...] consentwas obtained. Prior to beginning the procedure, Candor Protocol was usedtoconfirm the patient's identity and planned procedure. Maximum sterilebarriers including cap, mask, momin nd hygiene, sterile gloves, sterile gown,large sterile drape and cutaneous antisepsis were used. Theskin overlying the existing drainage catheter in the right upperquadrant of the abdomen was sterilely prepped, draped and infiltrated with1 percent lidocaine. A diesel mechanic image was documented prior to the injection [...] drainage catheter and with questionablefistulization to bowel. [facility], Radiant Results Inft User [...] consentwas obtained. Prior to beginning the procedure, Candor Protocol was usedto confirm the patient's identity and planned procedure. Maximum sterilebarriers including cap, mask, hand hygiene, sterile gloves, sterile gown,large sterile drape and cutaneous antisepsis were used. The skin overlying the existing drainage catheter in the right upperquadrant of the abdomen was sterilely prepped, draped and infiltrated with1 percent lidocaine. A diesel mechanic image was documented prior to the injection [...] this study and agree with theabove report. [facility] (NA, K, CL, CO2, GLUCOSE, BUN, CREATININE, CA)2020-05-31 08:13:00 Test Item Value Reference Range Interpretation Comments NA (test code = 135 mmol/L 135-145 2742715670) K (test code = 4.1 mmol/L 3.5-5 5073160925) CL (test code = 99 mmol/L 98-108 2896137264) CO2 TOTAL (test code = 32 mmol/L 23-31 H 8248905303) AGAP (test code = 2-16 2918424264) BUN (test code = 14 mg/dL 7-23 9143043915) GLUCOSE (test code = 89 mg/dL 70-110 6508305340) CREATININE (test code = 0.67 mg/dL 0.6-1.25 5837205905) CALCIUM (test code = 8.2 mg/dL 8.6-10.6 L 3597736413) eGFR Calculation mL/min/1.73m2 (Non-) (test code = 9731554117) eGFR Calculation mL/min/1.73m2 () (test code = 5833935911) GILBERTO (test code = GILBERTO) Association of [...] tests). Lab Interpretation Abnormal (test code = 82679-4) [facility] Test Item Value Reference Range Interpretation Comments MAGNESIUM (test code = 7750136181) 1.8 mg/dL 1.7-2.4 Lab Interpretation (test code = Normal 06907-0) [facility] CenterPHOSPHORUS2020-10-08 08:13:00 Test Item Value Reference Range Interpretation Comments PHOSPHORUS (test code = 1030414496) 5.2 mg/dL 2.5-5 H Lab Interpretation (test code = Abnormal 90507-1) [facility] WITH [id number] 08:05:00 Test Item Value Reference Range Interpretation [...] (test code = 57.9 fL 38.5-51.6 H 63029-6) RDW-CV (test code = 18.7 % 12.1-15.4 H 788-0) PLT (test code = See_Comment [Automated 777-3) message] The sy stem which generated this result transmitted reference range : 150 - 328 10*3/ ?L. The reference r meredith was not used to interpret this result as normal/abnormal . MPV (test code = 10.3 fL 9.8-13 62495-3) NRBC/100 WBC (test See_Comment [Automat ed code = 6605644533) message] The system which generated this result transmitted reference range : 0.0 - 10.0 /100 WBCs. The refer ence range was not u sed to interpret th is result as normal/abnormal . NRBC x10^3 (test code <0.01 See_Comment [Auto mated = 1060069659) message] The s ystem which generated this result transmitted reference range : 10*3/?L. The reference range was not used to interpret this result as normal/abnormal . GRAN MAT (NEUT) % 56.4 % (test code = 770-8) IMM GRAN % (test code 0.50 % = 3512698145) LYMPH % (test code = 26.2 % 736-9) MONO % (test code = 12.2 % 5905-5) EOS % (test code = 4.2 % 713-8) BASO % (test code = 0.5 % 706-2) GRAN MAT x10^3(ANC) 2.31 10*3/uL 1.99-6.95 (test code = 2869352022) IMM GRAN x10^3 (test <0.03 0-0.06 code = 8735531412) LYMPH x10^3 (test code 1.07 10*3/uL 1.09-3.23 L = 731-0) MONO x10^3 (test code 0.50 10*3/uL 0.36-1.02 = 742-7) EOS x10^3 (test code = 0.17 10*3/uL 0.06-0.53 711-2) BASO x10^3 (test code <0.03 0.01-0.09 = 704-7) Lab Interpretation Abnormal (test code = 10810-1) [facility] METABOLIC PANEL (NA, K, CL, CO2, GLUCOSE, BUN, CREATININE, CA)2020-05-30 09:04:00 Test Item Value Reference Range Interpretation Comments NA (test code = 138 mmol/L 135-145 3186051410) K (test code = 4.4 mmol/L 3.5-5 0469277451) CL (test code = 99 mmol/L 98-108 2187866915) CO2 TOTAL (test code = 33 mmol/L 23-31 H 8853473154) AGAP (test code = 2-16 0442259110) BUN (test code = 18 mg/dL 7-23 5334023353) GLUCOSE (test code = 86 mg/dL 70-110 2828897833) CREATININE (test code = 0.61 mg/dL 0.6-1.25 9965171442) CALCIUM (test code = 8.1 mg/dL 8.6-10.6 L 3757396152) eGFR Calculation mL/min/1.73m2 (Non-) (test code = 9729653784) eGFR Calculation mL/min/1.73m2 () (test code = 6892455370) GILBERTO (test code = GILBERTO) Association of [...] tests). Lab Interpretation Abnormal (test code = 33293-8) [facility] CenterMAGNESIUM2020-10-07 09:04:00 Test Item Value Reference Range Interpretation Comments MAGNESIUM (test code = 0389291194) 2.0 mg/dL 1.7-2.4 Lab Interpretation (test code = Normal 30062-3) [facility] CenterPHOSPHORUS2020-10-07 09:04:00 Test Item Value Reference Range Interpretation Comments PHOSPHORUS (test code = 5168979824) 4.6 mg/dL 2.5-5 Lab Interpretation (test code = Normal 12210-4) [facility] CenterBASI METABOLIC PANEL (NA, K, CL, CO2, GLUCOSE, BUN, CREATININE, CA)2020-05-29 07:31:00 Test Item Value Reference Range Interpretation Comments NA (test code = 135 mmol/L 135-145 8973414013) K (test code = 4.0 mmol/L 3.5-5 2729916976) CL (test code = 100 mmol/L 98-108 0050349844) CO2 TOTAL (test code = 32 mmol/L 23-31 H 9466175490) AGAP (test code = 2-16 8857864351) BUN (test code = 19 mg/dL 7-23 4315193792) GLUCOSE (test code = 86 mg/dL 70-110 0600586476) CREATININE (test code = 0.68 mg/dL 0.6-1.25 9373725018) CALCIUM (test code = 8.0 mg/dL 8.6-10.6 L 3140940275) eGFR Calculation mL/min/1.73m2 (Non-) (test code = 3293668166) eGFR Calculation mL/min/1.73m2 () (test code = 2947143417) GILBERTO (test code = GILBERTO) Association of [...] tests). Lab Interpretation Abnormal (test code = 55991-8) [facility] CenterMAGN[facility]IUM2020-10-06 07:31:00 Test Item Value Reference Range Interpretation Comments MAGNESIUM (test code = 5358911018) 1.6 mg/dL 1.7-2.4 L Lab Interpretation (test code = Abnormal 01153-9) [facility]PHOS[facility]2020-10-06 07:31:00 Test Item Value Reference Range Interpretation Comments PHOSPHORUS (test code = 6459670150) 3.5 mg/dL 2.5-5 Lab Interpretation (test code = Normal 12117-4) [facility] CenterASPIRATE OR ABSCESS CULTURE(AEROBIC/ANAEROBIC) 2020-05-28 12:35:00 Test Item Value Reference Range Interpretation Comments Aspirate or Abscess No aerobic/anaerobic Culture (test code = organisms isolated 29656-4) Gram stain (test code Occasional (Rare) = 664-3) Mononuclear cells [facility] CenterBASIC METABOLIC PANEL (NA, K, CL, CO2, GLUCOSE, BUN, CREATININE, CA)2020-05-28 09:36:00 Test Item Value Reference Range Interpretation Comments NA (test code = 136 mmol/L 135-145 0522335043) K (test code = 4.3 mmol/L 3.5-5 8077033278) CL (test code = 102 mmol/L 98-108 9976274037) CO2 TOTAL (test code = 31 mmol/L 23-31 1495524913) AGAP (test code = 2-16 2309720478) BUN (test code = 25 mg/dL 7-23 H 1859342277) GLUCOSE (test code = 87 mg/dL 70-110 2993080552) CREATININE (test code = 0.65 mg/dL 0.6-1.25 9971483028) CALCIUM (test code = 8.2 mg/dL 8.6-10.6 L 8922162279) eGFR Calculation mL/min/1.73m2 (Non-) (test code = 9888530446) eGFR Calculation mL/min/1.73m2 () (test code = 6897169019) GILBERTO (test code = GILBERTO) Association of [...] tests). Lab Interpretation Abnormal (test code = 44352-2) [facility]MAGN[facility]UM2020-10-05 09:36:00 Test Item Value Reference Range Interpretation Comments MAGNESIUM (test code = 7400334191) 1.6 mg/dL 1.7-2.4 L Lab Interpretation (test code = Abnormal 27037-6) [facility] CenterPHOSPH[facility]2020-10-05 09:36:00 Test Item Value Reference Range Interpretation Comments PHOSPHORUS (test code = 7520587053) 2.6 mg/dL 2.5-5 Lab Interpretation (test code = Normal 78400-5) [facility] (NA, K, CL, CO2, GLUCOSE, BUN, CREATININE, CA)2020-05-27 10:13:00 Test Item Value Reference Range Interpretation Comments NA (test code = 135 mmol/L 135-145 6935371336) K (test code = 3.9 mmol/L 3.5-5 8977673896) CL (test code = 103 mmol/L 98-108 9130424798) CO2 TOTAL (test code = 28 mmol/L 23-31 9179001659) AGAP (test code = 2-16 7155050561) BUN (test code = 20 mg/dL 7-23 1281142772) GLUCOSE (test code = 95 mg/dL 70-110 1950903629) CREATININE (test code = 0.67 mg/dL 0.6-1.25 5931788951) CALCIUM (test code = 8.2 mg/dL 8.6-10.6 L 0455434848) eGFR Calculation mL/min/1.73m2 (Non-) (test code = 8832307214) eGFR Calculation mL/min/1.73m2 () (test code = 0355085963) GILBERTO (test code = GILBERTO) Association of [...] tests). Lab Interpretation Abnormal (test code = 53583-7) [facility] CenterMAG[facility]2020-10-04 10:13:00 Test Item Value Reference Range Interpretation Comments MAGNESIUM (test code = 7021940125) 1.5 mg/dL 1.7-2.4 L Lab Interpretation (test code = Abnormal 32543-0) [facility]PH[facility]2020-10-04 10:13:00 Test Item Value Reference Range Interpretation Comments PHOSPHORUS (test code = 3584933923) 3.4 mg/dL 2.5-5 Lab Interpretation (test code = Normal 03858-3) [facility] CenterIR CHANGE OF ABSCESS [id number] 17:06:27 Successful removal of the left upper quadrant drainage catheter. Replacement of the right upper quadrant catheter into the most superiorsegment of the collection with a new 10 Czech pigtail catheter.PLAN: This tube should be flushed with 10 of saline twice a day. ?We willcontinue to monitor the output of the catheter while the patient isin-house. If the patient is discharged prior to catheter removal, follow-upwith VIR is recommended in 7-10 ?days. This can be arranged by [id number]. Preliminary Report Dictated by Resident: Johnny Tilley [...] from those actually performing theprocedure. Please see [facility] for sedation time. RADIATION DOSE: 33.0 mGy. TECHNIQUE: The risks, benefits and alternativeswere discussed and informed consentwas obtained. Prior to beginning the procedure, Candor Protocol was usedto confirm the patient's identity [...] of the pigtailcatheters within the respective collections. [facility], Radiant Results Inft User [...] from those actually performing theprocedure. Please see [facility] for sedation time.RADIATION DOSE: 33.0 mGy.TECHNIQUE: The risks, benefits andalternatives were discussed and informed consentwas obtained. Prior to beginning the procedure, Candor Protocol was usedto confirm the patient's identity [...] of the collection with a new 10 Czech pigtail catheter.PLAN: This tube should be flushed with 10 of saline twice a day. We willcontinue to monitor the output of the catheter while the patient isin-house. If the patient is discharged prior to catheter removal, follow-upwith VIR is recommended in 7-10 days. This can be arranged by [id number].Preliminary Report Dictated by Resident: Johnny Benitez, as teaching physician, was present during the entire procedure and/orduring the botello components.INixon MD., have reviewed this study and agree with theabove report.[facility] CenterIR ASPIRATION ABSCESS BULLA OR CYST BY [id number] 17:06:16 Successful ultrasound-guided aspiration of intrahepatic small [...] consentwas obtained. Prior to beginning the procedure, Candor Protocol was usedto confirm the patient's identity and planned procedure. Maximum sterilebarriers including cap, mask, hand hygiene, sterile gloves, sterile gown,large sterile drape and cutaneous antisepsis were used. The skin overlying the right mid abdomen was sterilely prepped, draped andinfiltrated with 1percent lidocaine. The targeted infrahepatic small collection was then accessed with [id number] micropuncture needle using imaging guidance which includedultrasound. The fluid collection was carefully aspirated. A steriledressing was applied. A sample of the fluid was sent for culture ESTIMATED BLOOD LOSS: Minimal. DISCHARGED TO: Recovery and then to inpatient unit. CONDITION: Stable. FINDINGS: Ultrasound imaging of the infrahepatic area demonstrated a very smallanechoic fluid collection. 1 mL yellowviscous-appearing fluid wasaspirated. [facility], Radiant Results Inft User - 05/26/2020 12:07 PM CDTEXAMINATION: IMAGE GUIDED PERCUTANEOUS INFRAHEPATIC FLUID COLLECTIONASPIRATIONHISTORY: 50 years-old; Male;peritoneal abscess.ATTENDEES: Attending radiologist: Nixon Perez; Resident: Dr. Johnny Tilley;Contributing VIR Fellow: Dr. Vance Stafford.SEDATION: No moderate sedation was utilized for this procedure.TECHNIQUE: The risks, benefits and alternatives were discussed and informed consentwas obtained. Prior to beginning the procedure, Candor Protocol was usedto confirm the patient's identity and planned procedure. Maximum sterilebarriers including cap, mask, hand hygiene, sterile gloves, sterile gown,large sterile drape and cutaneous antisepsis were used. The skin overlying the right mid abdomen was sterilely prepped, draped andinfiltrated with 1 percent lidocaine. The targeted infrahepatic small collection was then accessed with [id number] micropuncture needle using imaging guidance which includ [...] reviewed this study and agree with theabove report.[facility]OLIC PANEL (NA, K, CL, CO2, GLUCOSE, BUN, CREATININE, CA) 2020-05-26 10:13:00 Test Item Value Reference Range Interpretation Comments NA (test code = 135 mmol/L 135-145 5009580663) K (test code = 4.4 mmol/L 3.5-5 5124428218) CL (test code = 107 mmol/L 98-108 3735875276) CO2 TOTAL (test code = 23 mmol/L 23-31 6817547677) AGAP (test code = 2-16 2737170491) BUN (test code = 18 mg/dL 7-23 0034894572) GLUCOSE (test code = 101 mg/dL 70-110 6394181289) CREATININE (test code = 0.61 mg/dL 0.6-1.25 1517609048) CALCIUM (test code = 8.1 mg/dL 8.6-10.6 L 9663503849) eGFR Calculation mL/min/1.73m2 (Non-) (test code = 0240507982) eGFR Calculation mL/min/1.73m2 () (test code = 0710752943) GILBERTO (test code = GILBERTO) Association of [...] tests). Lab Interpretation Abnormal (test code = 88631-0) [facility]MAG[facility]2020-10-03 10:13:00 Test Item Value Reference Range Interpretation Comments MAGNESIUM (test code = 0966175894) 1.7 mg/dL 1.7-2.4 Lab Interpretation (test code = Normal 39257-1) [facility] CenterPHOS[facility]2020-10-03 10:13:00 Test Item Value Reference Range Interpretation Comments PHOSPHORUS (test code = 4186816357) 3.4 mg/dL 2.5-5 Lab Interpretation (test code = Normal 66277-2) [facility] CenterXR [id number] 23:20:33 Positioning dictated draining the right upper [...] reviewed this study and agree with theabove report.[facility] (NA, K, CL, CO2, GLUCOSE, BUN, CREATININE, CA)2020-05-25 22:49:00 Test Item Value Reference Range Interpretation Comments NA (test code = 136 mmol/L 135-145 7256471229) K (test code = 4.5 mmol/L 3.5-5 7207158676) CL (test code = 105 mmol/L 98-108 2200281529) CO2 TOTAL (test code = 22 mmol/L 23-31 L 1539324146) AGAP (test code = 2-16 7993811004) BUN (test code = 24 mg/dL 7-23 H 7862530067) GLUCOSE (test code = 101 mg/dL 70-110 5794262030) CREATININE (test code = 0.74 mg/dL 0.6-1.25 6911903136) CALCIUM (test code = 8.6 mg/dL 8.6-10.6 3300386801) eGFR Calculation mL/min/1.73m2 (Non-) (test code = 1849077457) eGFR Calculation mL/min/1.73m2 () (test code = 2845329818) GILBERTO (test code = GILBERTO) Association of [...] tests). Lab Interpretation Abnormal (test code = 86273-3) [facility]MAG[facility]2020-10-02 22:11:00 Test Item Value Reference Range Interpretation Comments MAGNESIUM (test code = 1013806083) 2.0 mg/dL 1.7-2.4 Lab Interpretation (test code = Normal 10413-9) [facility] CenterPHOS[facility]2020-10-02 22:11:00 Test Item Value Reference Range Interpretation Comments PHOSPHORUS (test code = 9784631135) 3.1 mg/dL 2.5-5 Lab Interpretation (test code = Normal 74360-9) [facility] CenterCB WITH [id number] 21:51:00 Test Item Value Reference Range Interpretation [...] (test code = 53.1 fL 38.5-51.6 H 68754-2) RDW-CV (test code = 17.9 % 12.1-15.4 H 788-0) PLT (test code = See_Comment [Automated 777-3) message] The sy stem which generated this result transmitted reference range : 150 - 328 10*3/ ?L. The reference r meredith was not used to interpret this result as normal/abnormal . MPV (test code = 9.1 fL 9.8-13 L 49935-6) NRBC/100 WBC (test See_Comment [Automat ed code = 8400798346) message] The system which generated this result transmitted reference range : 0.0 - 10.0 /100 WBCs. The refer ence range was not u sed to interpret th is result as normal/abnormal . NRBC x10^3 (test code <0.01 See_Comment [Auto mated = 0048318152) message] The s ystem which generated this result transmitted reference range : 10*3/?L. The reference range was not used to interpret this result as normal/abnormal . GRAN MAT (NEUT) % 73.4 % (test code = 770-8) IMM GRAN % (test code 0.50 % = 6467821272) LYMPH % (test code = 17.9 % 736-9) MONO % (test code = 5.2 % 5905-5) EOS % (test code = 2.5 % 713-8) BASO % (test code = 0.5 % 706-2) GRAN MAT x10^3(ANC) 4.05 10*3/uL 1.99-6.95 (test code = 5052560776) IMM GRAN x10^3 (test 0.03 10*3/uL 0-0.06 code = 6291471100) LYMPH x10^3 (test code 0.99 10*3/uL 1.09-3.23 L = 731-0) MONO x10^3 (test code 0.29 10*3/uL 0.36-1.02 L = 742-7) EOS x10^3 (test code = 0.14 10*3/uL 0.06-0.53 711-2) BASO x10^3 (test code 0.03 10*3/uL 0.01-0.09 = 704-7) Lab Interpretation Abnormal (test code = 12762-7) [facility] (NA, K, CL, CO2, GLUCOSE, BUN, CREATININE, CA)2020-05-25 09:24:00 Test Item Value Reference Range Interpretation Comments NA (test code = 135 mmol/L 135-145 3957288760) K (test code = 5.3 mmol/L 3.5-5 H Slight 8400392957) hemolysis CL (test code = 104 mmol/L 98-108 7365127057) CO2 TOTAL (test code 24 mmol/L 23-31 = 4924607451) AGAP (test code = 2-16 9049315100) BUN (test code = 22 mg/dL 7-23 Slight 2186660516) hemolysis GLUCOSE (test code = 96 mg/dL 70-110 0235708240) CREATININE (test code 0.73 mg/dL 0.6-1.25 = 9058619070) CALCIUM (test code = 8.2 mg/dL 8.6-10.6 L 6432147803) eGFR Calculation mL/min/1.73m2 (Non-) (test code = 8354152829) eGFR Calculation mL/min/1.73m2 () (test code = 2602607275) GILBERTO (test code = GILBERTO) Association of [...] tests). Lab Interpretation Abnormal (test code = 17507-4) [facility] 09:24:00 Test Item Value Reference Range Interpretation Comments MAGNESIUM (test code = 6738992839) 2.3 mg/dL 1.7-2.4 Lab Interpretation (test code = Normal 56601-7) [facility]2020-10-02 09:24:00 Test Item Value Reference Range Interpretation Comments PHOSPHORUS (test code = 2553583000) 3.4 mg/dL 2.5-5 Lab Interpretation (test code = Normal 64248-0) [facility] (NA, K, CL, CO2, GLUCOSE, BUN, CREATININE, CA)2020-05-24 21:00:00 Test Item Value Reference Range Interpretation Comments NA (test code = 135 mmol/L 135-145 0796874086) K (test code = 4.3 mmol/L 3.5-5 0187588595) CL (test code = 102 mmol/L 98-108 7664274044) CO2 TOTAL (test code = 25 mmol/L 23-31 2783759310) AGAP (test code = 2-16 0007137727) BUN (test code = 20 mg/dL 7-23 5415626599) GLUCOSE (test code = 102 mg/dL 70-110 0593330160) CREATININE (test code 0.97 mg/dL 0.6-1.25 = 4515613893) CALCIUM (test code = 9.0 mg/dL 8.6-10.6 8067840895) eGFR Calculation mL/min/1.73m2 (Non-) (test code = 2759783858) eGFR Calculation mL/min/1.73m2 () (test code = 9368070952) GILBERTO (test code = GILBERTO) Association of [...] or urine or abnormalities in imaging tests). [facility]2020-[facility]-01 21:00:00 Test Item Value Reference Range Interpretation Comments MAGNESIUM (test code = 7010949992) 1.5 mg/dL 1.7-2.4 L Lab Interpretation (test code = Abnormal 24008-3) [facility]2020-10-01 20:58:00 Test Item Value Reference Range Interpretation Comments PHOSPHORUS (test code = 1918643171) 3.3 mg/dL 2.5-5 Lab Interpretation (test code = Normal 97619-7) [facility] CenterCB with Epshmfbbopou2413-12-49 11:31:00 Test Item Value Reference Range Interpretation [...] (test code = 51.9 fL 38.5-51.6 H 03670-0) RDW-CV (test code = 17.6 % 12.1-15.4 H 788-0) PLT (test code = See_Comment H [Automated 777-3) message] The sy stem which generated this result transmitted reference range : 150 - 328 10*3/ ?L. The reference r meredith was not used to interpret this result as normal/abnormal . MPV (test code = 9.0 fL 9.8-13 L 71977-0) NRBC/100 WBC (test See_Comment [Automat ed code = 8314708576) message] The system which generated this result transmitted reference range : 0.0 - 10.0 /100 WBCs. The refer ence range was not u sed to interpret th is result as normal/abnormal . NRBC x10^3 (test code <0.01 See_Comment [Auto mated = 2733110341) message] The s ystem which generated this result transmitted reference range : 10*3/?L. The reference range was not used to interpret this result as normal/abnormal . GRAN MAT (NEUT) % 66.0 % (test code = 770-8) IMM GRAN % (test code 0.20 % = 2453707134) LYMPH % (test code = 20.3 % 736-9) MONO % (test code = 10.4 % 5905-5) EOS % (test code = 2.6 % 713-8) BASO % (test code = 0.5 % 706-2) GRAN MAT x10^3(ANC) 4.33 10*3/uL 1.99-6.95 (test code = 3631200388) IMM GRAN x10^3 (test <0.03 0-0.06 code = 6799717529) LYMPH x10^3 (test code 1.33 10*3/uL 1.09-3.23 = 731-0) MONO x10^3 (test code 0.68 10*3/uL 0.36-1.02 = 742-7) EOS x10^3 (test code = 0.17 10*3/uL 0.06-0.53 711-2) BASO x10^3 (test code 0.03 10*3/uL 0.01-0.09 = 704-7) Lab Interpretation Abnormal (test code = 71484-8) [facility] CenterCT [facility] PEL[facility] W [id number] 17:39:05 Since 05/19/2020 slight increase in size [...] perihepatic are unchanged with drains insitu as above.[facility] (NA, K, CL, CO2, Glucose, BUN, Creatinine, CA)2020-05-23 10:25:00 Test Item Value Reference Range Interpretation Comments NA (test code = 135 mmol/L 135-145 8264445446) K (test code = 3.7 mmol/L 3.5-5 8984264386) CL (test code = 105 mmol/L 98-108 8418245171) CO2 TOTAL (test code = 24 mmol/L 23-31 9381287877) AGAP (test code = 2-16 0143323430) BUN (test code = 19 mg/dL 7-23 3701332830) GLUCOSE (test code = 117 mg/dL 70-110 H 9736268128) CREATININE (test code = 0.74 mg/dL 0.6-1.25 9879735795) CALCIUM (test code = 7.3 mg/dL 8.6-10.6 L 6880193922) eGFR Calculation mL/min/1.73m2 (Non-) (test code = 7400629177) eGFR Calculation mL/min/1.73m2 () (test code = 7148643478) GILBERTO (test code = GILBERTO) Association of [...] tests). Lab Interpretation Abnormal (test code = 42166-5) [facility] CenterCORON[facility]IRUS COVID-19 [id number] 07:40:00 Test Item Value Reference Range Interpretation Comments SARS-CoV-2 Rapid ID NOW Not Detected Not Detected (test code = 94430-1) GILBERTO (test code = GILBERTO) ID NOW COVID-19 Assay is an isothermal nucleic acid amplification test intended for the qualitative detection of nucleic acid from SARS-CoV-2 viral RNA in nasopharyngeal ([employer]) specimens. It is used under Emergency Use [...] indicated. Lab Interpretation Normal (test code = 87416-8) [facility] CenterUrinalysis2020-09-29 22:41:00 Test Item Value Reference Range Interpretation Comments APPEARANCE (test code = Hazy Clear A 7610706258) COLOR (test code = Yellow Yellow 4922433168) PH (test code = 4.8-8.0 1510759727) SP GRAVITY (test code = 1.003-1.030 3341627618) GLU U QUAL (test code = Normal Normal 1186299585) BLOOD (test code = Negative Negative 7212837100) KETONES (test code = Negative Negative 2459312746) PROTEIN (test code = 30 mg/dL Negative A 2887-8) UROBILIN (test code = Normal Normal 7467019943) BILIRUBIN (test code = Negative Negative 8665264814) NITRITE (test code = Negative Negative 0147798024) LEUK ROGER (test code = Negative Negative 9781891901) RBC/HPF (test code = See_Comment H [Autom ated message] 7912603097) The system [employer] generated this result transmitted ref erence range: 0 - 3 HP F. The reference range was not used to int erpret this result as normal/abnormal . WBC/HPF (test code = See_Comment H [Autom ated message] 5425039199) The system [employer] generated this result transmitted ref erence range: 0 - 5 HP F. The reference range was not used to int erpret this result as normal/abnormal . BACTERIA (test code = Negative Negative 3933712863) MUCOUS (test code = Moderate Negative LPF A 3624590863) SQ EPITH (test code = See_Comment [Auto mated message] 0815281102) The system [employer] generated this result transmitted ref erence range: <=2 HPF. The reference range was not used to int erpret this result as normal/abnormal . CA OXALATE (test code = See_Comment H [Au tomated message] 6974337853) The system [employer] generated this result transmitted ref erence range: <=1 HPF. The reference range was not used to int erpret this result as normal/abnormal . HYAL CAST (test code = See_Comment H [Aut omated message] 8992430852) The system [employer] generated this result transmitted ref erence range: <=2 LPF. The reference range was not used to int erpret this result as normal/abnormal . Lab Interpretation (test Abnormal code = 93193-7) [facility] (NA, K, CL, CO2, GLUCOSE, BUN, CREATININE, CA)2020-05-22 21:46:00 Test Item Value Reference Range Interpretation Comments NA (test code = 134 mmol/L 135-145 L 5821518721) K (test code = 5.0 mmol/L 3.5-5 3320760668) CL (test code = 103 mmol/L 98-108 2195137546) CO2 TOTAL (test code = 25 mmol/L 23-31 7724134092) AGAP (test code = 2-16 9320585273) BUN (test code = 24 mg/dL 7-23 H 7717865612) GLUCOSE (test code = 102 mg/dL 70-110 5983040096) CREATININE (test code = 0.87 mg/dL 0.6-1.25 3099344683) CALCIUM (test code = 9.2 mg/dL 8.6-10.6 6715575752) eGFR Calculation mL/min/1.73m2 (Non-) (test code = 4392050134) eGFR Calculation mL/min/1.73m2 () (test code = 3884984678) GILBERTO (test code = GILBERTO) Association of [...] tests). Lab Interpretation Abnormal (test code = 00855-3) [facility] CenterHepatic Function Panel (ALB, T.PRO, BILI T, BU/BC, ALT, AST, ALK PHOS)2020-05-22 21:46:00 Test Item Value Reference Range Interpretation Comments TOTAL BILI (test code = 6596520832) 0.4 mg/dL 0.1-1.1 BILI UNCON (test code = 8412552583) 0.2 mg/dL 0.1-1.1 BILI CONJ (test code = 9076919075) 0.0 mg/dL 0-0.3 T PROTEIN (test code = 0805092348) 6.5 g/dL 6.3-8.2 ALBUMIN (test code = 0643760629) 3.6 g/dL 3.5-5 ALK PHOS (test code = 8634973482) 96 U/L 34-122 ALTv (test code = 1742-6) 22 U/L 5-50 AST(SGOT) (test code = 6320364458) 28 U/L 13-40 Lab Interpretation (test code = Normal 87208-5) [facility] CenterLipase Jevxw8075-06-30 21:46:00 Test Item Value Reference Range Interpretation Comments LIPASE (test code = 1132872594) 95 U/L 0-220 Lab Interpretation (test code = Normal 68615-3) [facility] CenteraPTT2020-09-29 21:46:00 Test Item Value Reference Range Interpretation Comments APTT Patient (test code = See_Comment [ Automated message] 3173-2) The system [employer] generated this result transmitted ref erence range: 26 - 36 Seconds. The re ference range was not u sed to interpret this result as normal/abnor mal. Lab Interpretation (test Normal code = 94288-4) [facility] CenterProthrombin Time (PT) / [id number] 21:46:00 Test Item Value Reference Range Interpretation Comments PROTIME PATIENT (test See_Comment H [Auto mated message] code = 5964-2) The system [employer] generated this result transmitted ref erence range: 10.1 - 1 2.6 Seconds. The reference range was not used to int erpret this result as normal/abnormal . INR (test code = 6301-6) Nor mal INR <1.1; Warfarin Therap eutic range 2.0 to 3. 0 or 2.5 to 3.5, dep ending upon the indica tions. Lab Interpretation (test Abnormal code = 84871-6) [facility] with Hygabuiftihl9221-50-47 21:41:00 Test Item Value Reference Range Interpretation [...] (test code = 53.0 fL 38.5-51.6 H 07641-5) RDW-CV (test code = 17.6 % 12.1-15.4 H 788-0) PLT (test code = See_Comment H [Automated 777-3) message] The sy stem which generated this result transmitted reference range : 150 - 328 10*3/ ?L. The reference r meredith was not used to interpret this result as normal/abnormal . MPV (test code = 9.1 fL 9.8-13 L 74977-9) NRBC/100 WBC (test See_Comment [Automat ed code = 0928235337) message] The system which generated this result transmitted reference range : 0.0 - 10.0 /100 WBCs. The refer ence range was not u sed to interpret th is result as normal/abnormal . NRBC x10^3 (test code <0.01 See_Comment [Auto mated = 7290758820) message] The s ystem which generated this result transmitted reference range : 10*3/?L. The reference range was not used to interpret this result as normal/abnormal . GRAN MAT (NEUT) % 77.4 % (test code = 770-8) IMM GRAN % (test code 0.50 % = 6582945893) LYMPH % (test code = 15.8 % 736-9) MONO % (test code = 4.9 % 5905-5) EOS % (test code = 0.8 % 713-8) BASO % (test code = 0.6 % 706-2) GRAN MAT x10^3(ANC) 5.04 10*3/uL 1.99-6.95 (test code = 6465880020) IMM GRAN x10^3 (test 0.03 10*3/uL 0-0.06 code = 7691565927) LYMPH x10^3 (test code 1.03 10*3/uL 1.09-3.23 L = 731-0) MONO x10^3 (test code 0.32 10*3/uL 0.36-1.02 L = 742-7) EOS x10^3 (test code = 0.05 10*3/uL 0.06-0.53 L 711-2) BASO x10^3 (test code 0.04 10*3/uL 0.01-0.09 = 704-7) Lab Interpretation Abnormal (test code = 28407-5) [facility] 1 [id number] 21:19:32CHEST ONE VIEW HISTORY: ?Weakness TECHNIQUE: ?AP [...] the left costophrenic angle suggests a leftpleural effusion.[facility] CenterCOVID[facility] (ID NOW RAPID TESTING) 2020-05-20 10:09:00 Test Item Value Reference Range Interpretation Comments SARS-CoV-2 Rapid ID NOW Not Detected Not Detected (test code = 53510-1) GILBERTO (test code = GILBERTO) ID NOW COVID-19 Assay is an isothermal nucleic acid amplification test intended for the qualitative detection of nucleic acid from SARS-CoV-2 viral RNA in nasopharyngeal ([employer]) specimens. It is used under Emergency Use [...] indicated. Lab Interpretation Normal (test code = 93912-6) [facility] CenterURINALYSIS2020-09-27 10:07:00 Test Item Value Reference Range Interpretation Comments APPEARANCE (test code = Clear Clear 1994464454) COLOR (test code = Yellow Yellow 4826407683) PH (test code = 4.8-8.0 0936275925) SP GRAVITY (test code = 1.003-1.030 H 2488440243) GLU U QUAL (test code = Normal Normal 5983961447) BLOOD (test code = Negative Negative 5971467233) KETONES (test code = Negative Negative 9769801040) PROTEIN (test code = Negative Negative 2887-8) UROBILIN (test code = Normal Normal 8255210431) BILIRUBIN (test code = Negative Negative 1901520406) NITRITE (test code = Negative Negative 1393106124) LEUK ROGER (test code = Negative Negative 2313320886) RBC/HPF (test code = See_Comment [Autom ated message] 2584433798) The system [employer] generated this result transmitted ref erence range: 0 - 3 HP F. The reference range was not used to int erpret this result as normal/abnormal . WBC/HPF (test code = See_Comment [Autom ated message] 1057163538) The system [employer] generated this result transmitted ref erence range: 0 - 5 HP F. The reference range was not used to int erpret this result as normal/abnormal . BACTERIA (test code = Negative Negative 6498941512) MUCOUS (test code = Slight Negative LPF A 9591601870) SQ EPITH (test code = See_Comment [Auto mated message] 4435324631) The system [employer] generated this result transmitted ref erence range: <=2 HPF. The reference range was not used to int erpret this result as normal/abnormal . HYAL CAST (test code = See_Comment H [Aut omated message] 4188318031) The system [employer] generated this result transmitted ref erence range: <=2 LPF. The reference range was not used to int erpret this result as normal/abnormal . Lab Interpretation (test Abnormal code = 04015-2) [facility] CenterCT ABDOMEN PELVIS W [id number] 04:28:40Impression: 1. Multiple rim-enhancing fluid and gas [...] effusions, possiblyloculated on the left. RL: 2824AFC: 14592 End of Report Exam: CT Abdomen and [...] pleural effusions, possiblyloculated on the left.RL: 2824AFC: 76306Tml of Report [facility] [id number] 03:44:00 Test Item Value Reference Range Interpretation Comments TROPONIN I (test 0.001 ng/mL See_Comment [Automated code = 2921083485) message] The system which generated this result [...] ? Lab Interpretation Normal (test code = 57052-1) [facility]. METABOLIC PANEL (59078)2020-05-20 03:33:00 Test Item Value Reference Range Interpretation Comments NA (test code = 138 mmol/L 135-145 8446398003) K (test code = 5.3 mmol/L 3.5-5 H 9767523153) CL (test code = 100 mmol/L 98-108 1333705707) CO2 TOTAL (test code = 28 mmol/L 23-31 8441228275) AGAP (test code = 2-16 8713639347) BUN (test code = 27 mg/dL 7-23 H 2808221970) GLUCOSE (test code = 90 mg/dL 70-110 6914546535) CREATININE (test code = 1.25 mg/dL 0.6-1.25 7668468445) TOTAL BILI (test code = 0.2 mg/dL 0.1-1.8 8485877184) CALCIUM (test code = 9.9 mg/dL 8.6-10.6 8115418991) T PROTEIN (test code = 6.8 g/dL 6.3-8.2 9998449123) ALBUMIN (test code = 3.7 g/dL 3.5-5 9352702342) ALK PHOS (test code = 122 U/L 34-122 3105179876) ALTv (test code = 26 U/L 5-50 1742-6) AST(SGOT) (test code = 24 U/L 13-40 1891066436) eGFR Calculation mL/min/1.73m2 (Non-) (test code = 5657951951) eGFR Calculation mL/min/1.73m2 () (test code = 8605906736) GILBERTO (test code = GILBERTO) Association of [...] tests). Lab Interpretation Abnormal (test code = 78202-9) [facility] CenterLIPASE2020-09-27 03:33:00 Test Item Value Reference Range Interpretation Comments LIPASE (test code = 0577658605) 223 U/L 0-220 H Lab Interpretation (test code = Abnormal 59813-9) [facility] CenterMAGNESIUM2020-09-27 03:33:00 Test Item Value Reference Range Interpretation Comments MAGNESIUM (test code = 5728608834) 1.7 mg/dL 1.7-2.4 Lab Interpretation (test code = Normal 74228-3) [facility] WITH [id number] 03:17:00 Test Item Value Reference Range Interpretation Comments WBC (test code = See_Comment [Automated 2090-2) message] The sy stem which generated this result transmitted reference range : 4.20 - 10.70 10*3/?L. The reference range was not used to interpret this result as normal/abnormal . RBC (test code = See_Comment L [Automated 034-8) message] The sy stem which generated this [...] RDW-SD (test code = 49.9 fL 38.5-51.6 11142-3) RDW-CV (test code = 17.2 % 12.1-15.4 H 788-0) PLT (test code = See_Comment H [Automated 777-3) message] The sy stem which generated this result transmitted reference range : 150 - 328 10*3/ ?L. The reference r meredith was not used to interpret this result as normal/abnormal . MPV (test code = 9.3 fL 9.8-13 L 63281-4) NRBC/100 WBC (test See_Comment [Automat ed code = 1523690956) message] The system which generated this result transmitted reference range : 0.0 - 10.0 /100 WBCs. The refer ence range was not u sed to interpret th is result as normal/abnormal . NRBC x10^3 (test code <0.01 See_Comment [Auto mated = 7793094505) message] The s ystem which generated this result transmitted reference range : 10*3/?L. The reference range was not used to interpret this result as normal/abnormal . GRAN MAT (NEUT) % 78.5 % (test code = 770-8) IMM GRAN % (test code 0.50 % = 9219074355) LYMPH % (test code = 11.6 % 736-9) MONO % (test code = 8.4 % 5905-5) EOS % (test code = 0.6 % 713-8) BASO % (test code = 0.4 % 706-2) GRAN MAT x10^3(ANC) 6.16 10*3/uL 1.99-6.95 (test code = 7690465481) IMM GRAN x10^3 (test 0.04 10*3/uL 0-0.06 code = 5087726971) LYMPH x10^3 (test code 0.91 10*3/uL 1.09-3.23 L = 731-0) MONO x10^3 (test code 0.66 10*3/uL 0.36-1.02 = 742-7) EOS x10^3 (test code = 0.05 10*3/uL 0.06-0.53 L 711-2) BASO x10^3 (test code 0.03 10*3/uL 0.01-0.09 = 704-7) Lab Interpretation Abnormal (test code = 42314-4) [facility] CenterB[facility] FLUID CULTURE(AEROBIC/ANAEROBIC) 2020-05-10 15:19:00 Test Item Value Reference Range Interpretation Comments BODY FLUID CULT 2+ Clostridioides (test code = (Clostridium) difficile 611-4) Gram stain (test Few PMNs or Mononuclear code = 664-3) cells observed [facility] CenterBasi Metabolic Panel (NA, K, CL, CO2, GLUCOSE, BUN, CREATININE, CA)2020-05-10 10:27:00 Test Item Value Reference Range Interpretation Comments NA (test code = 132 mmol/L 135-145 L 5496249319) K (test code = 4.0 mmol/L 3.5-5 8374628015) CL (test code = 97 mmol/L 98-108 L 3987352973) CO2 TOTAL (test code = 28 mmol/L 23-31 1258942224) AGAP (test code = 2-16 7384718041) BUN (test code = 12 mg/dL 7-23 6463029891) GLUCOSE (test code = 128 mg/dL 70-110 H 7648616840) CREATININE (test code = 0.63 mg/dL 0.6-1.25 3970120852) CALCIUM (test code = 8.7 mg/dL 8.6-10.6 0015199571) eGFR Calculation mL/min/1.73m2 (Non-) (test code = 7413737418) eGFR Calculation mL/min/1.73m2 () (test code = 9031334453) GILBERTO (test code = GILBERTO) Association of [...] tests). Lab Interpretation Abnormal (test code = 71632-9) [facility] CenterMagnesium [id number] 10:27:00 Test Item Value Reference Range Interpretation Comments MAGNESIUM (test code = 9209008642) 1.7 mg/dL 1.7-2.4 Lab Interpretation (test code = Normal 28618-1) [facility] CenterPhosphorus [id number] 10:27:00 Test Item Value Reference Range Interpretation Comments PHOSPHORUS (test code = 8804233809) 3.4 mg/dL 2.5-5 Lab Interpretation (test code = Normal 86145-6) [facility] CenterCBC with Xorcexhifcqk0742-52-38 10:03:00 Test Item Value Reference Range Interpretation [...] RDW-SD (test code = 47.3 fL 38.5-51.6 14811-7) RDW-CV (test code = 15.7 % 12.1-15.4 H 788-0) PLT (test code = See_Comment H [Automated 777-3) message] The sy stem which generated this result transmitted reference range : 150 - 328 10*3/ ?L. The reference r meredith was not used to interpret this result as normal/abnormal . MPV (test code = 8.9 fL 9.8-13 L 14558-6) NRBC/100 WBC (test See_Comment [Automat ed code = 5332155259) message] The system which generated this result transmitted reference range : 0.0 - 10.0 /100 WBCs. The refer ence range was not u sed to interpret th is result as normal/abnormal . NRBC x10^3 (test code <0.01 See_Comment [Auto mated = 4355984118) message] The s ystem which generated this result transmitted reference range : 10*3/?L. The reference range was not used to interpret this result as normal/abnormal . GRAN MAT (NEUT) % 80.0 % (test code = 770-8) IMM GRAN % (test code 0.50 % = 8385999552) LYMPH % (test code = 11.8 % 736-9) MONO % (test code = 6.6 % 5905-5) EOS % (test code = 0.8 % 713-8) BASO % (test code = 0.3 % 706-2) GRAN MAT x10^3(ANC) 6.98 10*3/uL 1.99-6.95 H (test code = 2644900027) IMM GRAN x10^3 (test 0.04 10*3/uL 0-0.06 code = 3627503438) LYMPH x10^3 (test code 1.03 10*3/uL 1.09-3.23 L = 731-0) MONO x10^3 (test code 0.58 10*3/uL 0.36-1.02 = 742-7) EOS x10^3 (test code = 0.07 10*3/uL 0.06-0.53 711-2) BASO x10^3 (test code 0.03 10*3/uL 0.01-0.09 = 704-7) Lab Interpretation Abnormal (test code = 28343-9) [facility] Metabolic Panel (NA, K, CL, CO2, GLUCOSE, BUN, CREATININE, CA)2020-05-09 11:07:00 Test Item Value Reference Range Interpretation Comments NA (test code = 133 mmol/L 135-145 L 2956670716) K (test code = 4.4 mmol/L 3.5-5 3116201810) CL (test code = 100 mmol/L 98-108 7575484509) CO2 TOTAL (test code = 25 mmol/L 23-31 6405767520) AGAP (test code = 2-16 1638097030) BUN (test code = 14 mg/dL 7-23 2274226554) GLUCOSE (test code = 93 mg/dL 70-110 2164023099) CREATININE (test code = 0.66 mg/dL 0.6-1.25 3059407643) CALCIUM (test code = 8.3 mg/dL 8.6-10.6 L 6733393582) eGFR Calculation mL/min/1.73m2 (Non-) (test code = 6463633427) eGFR Calculation mL/min/1.73m2 () (test code = 1694146739) GILBERTO (test code = GILBERTO) Association of [...] tests). Lab Interpretation Abnormal (test code = 57612-9) [facility] [facility] Izyuc3668-74-82 11:07:00 Test Item Value Reference Range Interpretation Comments MAGNESIUM (test code = 5698296349) 1.8 mg/dL 1.7-2.4 Lab Interpretation (test code = Normal 25009-7) [facility] Pioce9739-86-34 11:07:00 Test Item Value Reference Range Interpretation Comments PHOSPHORUS (test code = 9233494953) 3.2 mg/dL 2.5-5 Lab Interpretation (test code = Normal 51937-8) [facility] CenterCBC with Llgjsrownukr1557-18-95 10:42:00 Test Item Value Reference Range Interpretation [...] RDW-SD (test code = 45.9 fL 38.5-51.6 92814-4) RDW-CV (test code = 15.4 % 12.1-15.4 788-0) PLT (test code = See_Comment H [Automated 777-3) message] The sy stem which generated this result transmitted reference range : 150 - 328 10*3/ ?L. The reference r meredith was not used to interpret this result as normal/abnormal . MPV (test code = 8.9 fL 9.8-13 L 13876-6) NRBC/100 WBC (test See_Comment [Automat ed code = 4567014291) message] The system which generated this result transmitted reference range : 0.0 - 10.0 /100 WBCs. The refer ence range was not u sed to interpret th is result as normal/abnormal . NRBC x10^3 (test code <0.01 See_Comment [Auto mated = 8443665440) message] The s ystem which generated this result transmitted reference range : 10*3/?L. The reference range was not used to interpret this result as normal/abnormal . GRAN MAT (NEUT) % 77.7 % (test code = 770-8) IMM GRAN % (test code 0.50 % = 7526120035) LYMPH % (test code = 11.8 % 736-9) MONO % (test code = 8.4 % 5905-5) EOS % (test code = 1.4 % 713-8) BASO % (test code = 0.2 % 706-2) GRAN MAT x10^3(ANC) 6.48 10*3/uL 1.99-6.95 (test code = 6795038267) IMM GRAN x10^3 (test 0.04 10*3/uL 0-0.06 code = 4084592667) LYMPH x10^3 (test code 0.98 10*3/uL 1.09-3.23 L = 731-0) MONO x10^3 (test code 0.70 10*3/uL 0.36-1.02 = 742-7) EOS x10^3 (test code = 0.12 10*3/uL 0.06-0.53 711-2) BASO x10^3 (test code <0.03 0.01-0.09 = 704-7) Lab Interpretation Abnormal (test code = 02892-2) [facility] Metabolic Panel (NA, K, CL, CO2, GLUCOSE, BUN, CREATININE, CA)2020-05-08 12:18:00 Test Item Value Reference Range Interpretation Comments NA (test code = 136 mmol/L 135-145 4386961538) K (test code = 4.1 mmol/L 3.5-5 3900478683) CL (test code = 102 mmol/L 98-108 7673913498) CO2 TOTAL (test code = 26 mmol/L 23-31 9604441758) AGAP (test code = 2-16 0009916841) BUN (test code = 18 mg/dL 7-23 8309259743) GLUCOSE (test code = 99 mg/dL 70-110 3395062467) CREATININE (test code = 0.63 mg/dL 0.6-1.25 4303871858) CALCIUM (test code = 8.4 mg/dL 8.6-10.6 L 3428120979) eGFR Calculation mL/min/1.73m2 (Non-) (test code = 1239236322) eGFR Calculation mL/min/1.73m2 () (test code = 2405345101) GILBERTO (test code = GILBERTO) Association of [...] tests). Lab Interpretation Abnormal (test code = 93256-6) [facility] CenterMagnesium Wwhgs9483-18-66 12:18:00 Test Item Value Reference Range Interpretation Comments MAGNESIUM (test code = 2229034160) 1.8 mg/dL 1.7-2.4 Lab Interpretation (test code = Normal 69655-0) [facility] CenterPhosphorus Imroc1596-61-70 12:18:00 Test Item Value Reference Range Interpretation Comments PHOSPHORUS (test code = 5355661521) 3.2 mg/dL 2.5-5 Lab Interpretation (test code = Normal 39856-8) [facility] Center[facility] with Jyjkmcaiaflc3644-21-82 11:50:00 Test Item Value Reference Range Interpretation Comments WBC (test code = See_Comment [Automated 8190-2) message] The sy stem which generated this result transmitted reference range : 4.20 - 10.70 10*3/?L. The reference range was not used to interpret this result as normal/abnormal . RBC (test code = See_Comment L [Automated 839-8) message] The sy stem which [...] RDW-SD (test code = 46.9 fL 38.5-51.6 40535-5) RDW-CV (test code = 15.2 % 12.1-15.4 788-0) PLT (test code = See_Comment H [Automated 777-3) message] The sy stem which generated this result transmitted reference range : 150 - 328 10*3/ ?L. The reference r meredith was not used to interpret this result as normal/abnormal . MPV (test code = 9.0 fL 9.8-13 L 28241-0) NRBC/100 WBC (test See_Comment [Automat ed code = 7072112576) message] The system which generated this result transmitted reference range : 0.0 - 10.0 /100 WBCs. The refer ence range was not u sed to interpret th is result as normal/abnormal . NRBC x10^3 (test code <0.01 See_Comment [Auto mated = 4034362026) message] The s ystem which generated this result transmitted reference range : 10*3/?L. The reference range was not used to interpret this result as normal/abnormal . GRAN MAT (NEUT) % 76.3 % (test code = 770-8) IMM GRAN % (test code 0.70 % = 9611360522) LYMPH % (test code = 13.3 % 736-9) MONO % (test code = 8.4 % 5905-5) EOS % (test code = 1.1 % 713-8) BASO % (test code = 0.2 % 706-2) GRAN MAT x10^3(ANC) 6.93 10*3/uL 1.99-6.95 (test code = 1554989884) IMM GRAN x10^3 (test 0.06 10*3/uL 0-0.06 code = 9146993464) LYMPH x10^3 (test code 1.21 10*3/uL 1.09-3.23 = 731-0) MONO x10^3 (test code 0.76 10*3/uL 0.36-1.02 = 742-7) EOS x10^3 (test code = 0.10 10*3/uL 0.06-0.53 711-2) BASO x10^3 (test code <0.03 0.01-0.09 = 704-7) Lab Interpretation Abnormal (test code = 25127-8) [facility] CenterIR DRAINAGE BY CATHETER PERITONEAL OR YBNXCURTJNVCCJL9454-52-96 13:09:04 Technically successful drainage catheter placement in [...] of the tract was performed. A 14 Czech locking pigtail michael inagecatheter was placed in the collection and samples were sent for laboratoryanalysis. The left upper quadrant collection was identified under ultrasound and CTguidance. A 17-gauge coaxial needle wasadvanced into the collection. AnAmplatz wire was advanced into the collection over the needle and serialdilatation of the tract was performed. A 12 Czech locking pigtail drainagecatheter was placed within the collection and samples were sent forlaboratory analysis. The right lower quadrant collectionwas identified under ultrasound and CTguidance. A 17-gauge coaxial needle was advanced into the colle ction.Serial dilatation was performed over the Amplatz wire. A 14 Czech lockingpigtail drainage catheter was placed within the collection. Proper positioning was confirmed with postprocedural CT imaging of theabdomen and pelvis. The catheters were sutured to the skin. ESTIMATED BLOOD LOSS: <3cc. CONDITION: Stable. FINDINGS: Initial CT images demonstrate multiple abscesses in the left upper, rightupper, and right lower quadrants. [facility], Radiant Results Inft User [...] from those actually performing theprocedure. Please see [facility] for total sedation time. TECHNIQUE: The risks, benefits and alternatives were discussed and informedconsent was obtained. Prior to beginning the procedure, Candor Protocolwas performed to confirm the patient's identity [...] of the tract was performed. A 14 Czech lockingpigtail drainagecatheter was placed in the collection and samples were sent for laboratoryanalysis.The left upper quadrant collection was identified under ultrasound and CTguidance. A 17-gauge coaxial needle was advanced into the collection. AnAmplatz wire was advanced into the collection over the needle and serialdilatation of the tract was performed. A 12 Czech locking pigtail drainagecatheter wasplaced within the collection and samples were sent forlaboratory analysis.The right lower quadrant collection was identified under ultrasound and CTguidance. A 17-gauge coaxial needle was advanced intothe collection.Serial dilatation was performed over the Amplatz wire. A 14 Czech lockingpigtail drainage catheter was placed within the [...] during the entire procedure and/orduring the botello components.[facility] CenterBa[facility] (NA, K, CL, CO2, GLUCOSE, BUN, CREATININE, CA) 2020-05-07 11:49:00 Test Item Value Reference Range Interpretation Comments NA (test code = 132 mmol/L 135-145 L 0175751079) K (test code = 4.0 mmol/L 3.5-5 4592201752) CL (test code = 101 mmol/L 98-108 2660436231) CO2 TOTAL (test code = 23 mmol/L 23-31 1804583927) AGAP (test code = 2-16 4492275181) BUN (test code = 21 mg/dL 7-23 0489523428) GLUCOSE (test code = 98 mg/dL 70-110 9638573768) CREATININE (test code = 0.65 mg/dL 0.6-1.25 8318705318) CALCIUM (test code = 8.4 mg/dL 8.6-10.6 L 8036272718) eGFR Calculation mL/min/1.73m2 (Non-) (test code = 3565844099) eGFR Calculation mL/min/1.73m2 () (test code = 3450681869) GILBERTO (test code = GILBERTO) Association of [...] tests). Lab Interpretation Abnormal (test code = 33084-2) [facility] CenterMagnesium Szeno1070-96-04 11:49:00 Test Item Value Reference Range Interpretation Comments MAGNESIUM (test code = 7980218712) 1.5 mg/dL 1.7-2.4 L Lab Interpretation (test code = Abnormal 67989-9) [facility] CenterPhosphorus Dunwl8575-33-90 11:49:00 Test Item Value Reference Range Interpretation Comments PHOSPHORUS (test code = 2079204077) 2.7 mg/dL 2.5-5 Lab Interpretation (test code = Normal 25023-4) [facility] CenterCB with Wmekfpnkutta5388-14-93 11:31:00 Test Item Value Reference Range Interpretation [...] RDW-SD (test code = 47.2 fL 38.5-51.6 66924-0) RDW-CV (test code = 15.3 % 12.1-15.4 788-0) PLT (test code = See_Comment H [Automated 777-3) message] The sy stem which generated this result transmitted reference range : 150 - 328 10*3/ ?L. The reference r meredith was not used to interpret this result as normal/abnormal . MPV (test code = 9.4 fL 9.8-13 L 48608-3) NRBC/100 WBC (test See_Comment [Automat ed code = 4000930903) message] The system which generated this result transmitted reference range : 0.0 - 10.0 /100 WBCs. The refer ence range was not u sed to interpret th is result as normal/abnormal . NRBC x10^3 (test code <0.01 See_Comment [Auto mated = 6847040894) message] The s ystem which generated this result transmitted reference range : 10*3/?L. The reference range was not used to interpret this result as normal/abnormal . GRAN MAT (NEUT) % 81.1 % (test code = 770-8) IMM GRAN % (test code 0.80 % = 0027731260) LYMPH % (test code = 9.5 % 736-9) MONO % (test code = 7.8 % 5905-5) EOS % (test code = 0.6 % 713-8) BASO % (test code = 0.2 % 706-2) GRAN MAT x10^3(ANC) 8.26 10*3/uL 1.99-6.95 H (test code = 6175072106) IMM GRAN x10^3 (test 0.08 10*3/uL 0-0.06 H code = 1108027605) LYMPH x10^3 (test code 0.97 10*3/uL 1.09-3.23 L = 731-0) MONO x10^3 (test code 0.79 10*3/uL 0.36-1.02 = 742-7) EOS x10^3 (test code = 0.06 10*3/uL 0.06-0.53 711-2) BASO x10^3 (test code <0.03 0.01-0.09 = 704-7) Lab Interpretation Abnormal (test code = 96830-9) [facility] Metabolic Panel (NA, K, CL, CO2, GLUCOSE, BUN, CREATININE, CA)2020-05-06 15:02:00 Test Item Value Reference Range Interpretation Comments NA (test code = 134 mmol/L 135-145 L 4709739559) K (test code = 4.3 mmol/L 3.5-5 4824935550) CL (test code = 105 mmol/L 98-108 9316614605) CO2 TOTAL (test code = 23 mmol/L 23-31 9315986181) AGAP (test code = 2-16 4869163143) BUN (test code = 18 mg/dL 7-23 3105171381) GLUCOSE (test code = 96 mg/dL 70-110 0385736454) CREATININE (test code = 0.67 mg/dL 0.6-1.25 8730221043) CALCIUM (test code = 8.5 mg/dL 8.6-10.6 L 6986596779) eGFR Calculation mL/min/1.73m2 (Non-) (test code = 2363500567) eGFR Calculation mL/min/1.73m2 () (test code = 2117272466) GILBERTO (test code = GILBERTO) Association of [...] tests). Lab Interpretation Abnormal (test code = 54955-8) [facility] CenterMagnesium Tjgib3203-75-27 15:02:00 Test Item Value Reference Range Interpretation Comments MAGNESIUM (test code = 6078852592) 1.8 mg/dL 1.7-2.4 Lab Interpretation (test code = Normal 59734-3) [facility] CenterPhosphorus Ssfax7079-06-79 15:02:00 Test Item Value Reference Range Interpretation Comments PHOSPHORUS (test code = 5930717509) 3.2 mg/dL 2.5-5 Lab Interpretation (test code = Normal 97773-5) [facility] with Oydhfwzogvcr2190-79-80 10:41:00 Test Item Value Reference Range Interpretation [...] RDW-SD (test code = 47.0 fL 38.5-51.6 85775-0) RDW-CV (test code = 15.2 % 12.1-15.4 788-0) PLT (test code = See_Comment H [Automated 777-3) message] The sy stem which generated this result transmitted reference range : 150 - 328 10*3/ ?L. The reference r meredith was not used to interpret this result as normal/abnormal . MPV (test code = 9.1 fL 9.8-13 L 66102-0) NRBC/100 WBC (test See_Comment [Automat ed code = 1826281830) message] The system which generated this result transmitted reference range : 0.0 - 10.0 /100 WBCs. The refer ence range was not u sed to interpret th is result as normal/abnormal . NRBC x10^3 (test code <0.01 See_Comment [Auto mated = 8834770189) message] The s ystem which generated this result transmitted reference range : 10*3/?L. The reference range was not used to interpret this result as normal/abnormal . GRAN MAT (NEUT) % 77.3 % (test code = 770-8) IMM GRAN % (test code 0.60 % = 9465196609) LYMPH % (test code = 11.6 % 736-9) MONO % (test code = 9.5 % 5905-5) EOS % (test code = 0.8 % 713-8) BASO % (test code = 0.2 % 706-2) GRAN MAT x10^3(ANC) 6.69 10*3/uL 1.99-6.95 (test code = 7472179058) IMM GRAN x10^3 (test 0.05 10*3/uL 0-0.06 code = 8230468412) LYMPH x10^3 (test code 1.00 10*3/uL 1.09-3.23 L = 731-0) MONO x10^3 (test code 0.82 10*3/uL 0.36-1.02 = 742-7) EOS x10^3 (test code = 0.07 10*3/uL 0.06-0.53 711-2) BASO x10^3 (test code <0.03 0.01-0.09 = 704-7) Lab Interpretation Abnormal (test code = 90733-7) [facility] CenterPrepare Packed RBC (in units), 1 Units 2020-05-05 15:59:33 Test Item Value Reference Range Interpretation Comments Cross Match Result Compatible (test code = 4409) ISBT Blood Type Code (test code = 643826) Unit Blood Type (test O Pos code = 4410) Unit Number (test [id number] code = 4411) Blood Expiration Date & Time (test code = 442124) Status Information Issued (test code = 4412) Product Red Blood Cells Identification (test code = 4413) Product Code (test [id number] Performed at [facility] code = 4414) Laboratory Services - [facility] Blood [address] [place] [address] s [address]Pmqc Free: [phone] A No. [id number] [facility] CenterType and Screen - ONCE Ichwygy4121-62-59 11:34:29 Test Item Value Reference Range Interpretation Comments ABO & RH (test code O POSITIVE Performe d at [facility] = 20) Laboratory Serv [facility] Blood [facility] [place] [address] s [address]Igjh Free: [phone] A No. [id number] IAT (test code = Negative Performed a t [facility] 1185) Laboratory Serv [facility] Blood Bank3 [address] [facility] [address]Stup Free: [phone] A No. [id number] [facility] CenterPREALBUMIN2020-09-12 10:19:00 Test Item Value Reference Range Interpretation Comments PALB (test code = 33926-6) 8.0 mg/dL 18-45 L Lab Interpretation (test code = Abnormal 98454-2) [facility] CenterBasi Metabolic Panel (NA, K, CL, CO2, GLUCOSE, BUN, CREATININE, CA)2020-05-05 10:12:00 Test Item Value Reference Range Interpretation Comments NA (test code = 135 mmol/L 135-145 5351153813) K (test code = 4.1 mmol/L 3.5-5 5052533205) CL (test code = 106 mmol/L 98-108 5311225006) CO2 TOTAL (test code = 22 mmol/L 23-31 L 2379554244) AGAP (test code = 2-16 5901029530) BUN (test code = 25 mg/dL 7-23 H 9986333346) GLUCOSE (test code = 91 mg/dL 70-110 4503845877) CREATININE (test code = 0.68 mg/dL 0.6-1.25 3049972970) CALCIUM (test code = 7.4 mg/dL 8.6-10.6 L 7732402697) eGFR Calculation mL/min/1.73m2 (Non-) (test code = 6119940758) eGFR Calculation mL/min/1.73m2 () (test code = 9758458102) GILBERTO (test code = GILBERTO) Association of [...] tests). Lab Interpretation Abnormal (test code = 39112-7) [facility] CenterMagnesium Gxmam0977-21-23 10:12:00 Test Item Value Reference Range Interpretation Comments MAGNESIUM (test code = 0855200653) 1.8 mg/dL 1.7-2.4 Lab Interpretation (test code = Normal 05389-1) [facility] CenterPhosphorus Ykkvg4308-24-47 10:12:00 Test Item Value Reference Range Interpretation Comments PHOSPHORUS (test code = 1488938773) 3.1 mg/dL 2.5-5 Lab Interpretation (test code = Normal 09244-8) [facility] CenterCB with Eduvhmnyetvj7871-12-22 09:18:00 Test Item Value Reference Range Interpretation [...] RDW-SD (test code = 48.4 fL 38.5-51.6 80295-2) RDW-CV (test code = 15.7 % 12.1-15.4 H 788-0) PLT (test code = See_Comment H [Automated 777-3) message] The sy stem which generated this result transmitted reference range : 150 - 328 10*3/ ?L. The reference r meredith was not used to interpret this result as normal/abnormal . MPV (test code = 9.1 fL 9.8-13 L 86941-0) NRBC/100 WBC (test See_Comment [Automat ed code = 2495165428) message] The system which generated this result transmitted reference range : 0.0 - 10.0 /100 WBCs. The refer ence range was not u sed to interpret th is result as normal/abnormal . NRBC x10^3 (test code <0.01 See_Comment [Auto mated = 8948339269) message] The s ystem which generated this result transmitted reference range : 10*3/?L. The reference range was not used to interpret this result as normal/abnormal . GRAN MAT (NEUT) % 79.0 % (test code = 770-8) IMM GRAN % (test code 0.70 % = 4313018862) LYMPH % (test code = 10.6 % 736-9) MONO % (test code = 8.9 % 5905-5) EOS % (test code = 0.5 % 713-8) BASO % (test code = 0.3 % 706-2) GRAN MAT x10^3(ANC) 7.81 10*3/uL 1.99-6.95 H (test code = 4872675064) IMM GRAN x10^3 (test 0.07 10*3/uL 0-0.06 H code = 5901469067) LYMPH x10^3 (test code 1.05 10*3/uL 1.09-3.23 L = 731-0) MONO x10^3 (test code 0.88 10*3/uL 0.36-1.02 = 742-7) EOS x10^3 (test code = 0.05 10*3/uL 0.06-0.53 L 711-2) BASO x10^3 (test code 0.03 10*3/uL 0.01-0.09 = 704-7) Lab Interpretation Abnormal (test code = 61705-3) [facility] CenterURINALYSIS2020-09-12 06:03:00 Test Item Value Reference Range Interpretation Comments APPEARANCE (test code = Hazy Clear A 0787403512) COLOR (test code = Yellow Yellow 6866129691) PH (test code = 4.8-8.0 3352778354) SP GRAVITY (test code = 1.003-1.030 H 9607908617) GLU U QUAL (test code = Normal Normal 4496898615) BLOOD (test code = Negative Negative 6177245381) KETONES (test code = Negative Negative 5885785754) PROTEIN (test code = Negative Negative 2887-8) UROBILIN (test code = Normal Normal 4810463504) BILIRUBIN (test code = Negative Negative 4408462595) NITRITE (test code = Negative Negative 6198577306) LEUK ROGER (test code = Negative Negative 6983011009) RBC/HPF (test code = See_Comment H [Autom ated message] 6160661507) The system [employer] generated this result transmitted ref erence range: 0 - 3 HP F. The reference range was not used to int erpret this result as normal/abnormal . WBC/HPF (test code = See_Comment [Autom ated message] 5636040972) The system [employer] generated this result transmitted ref erence range: 0 - 5 HP F. The reference range was not used to int erpret this result as normal/abnormal . BACTERIA (test code = Few Negative A 9079299820) MUCOUS (test code = Slight Negative LPF A 8036617427) CA OXALATE (test code = See_Comment H [Au tomated message] 2800954421) The system [employer] generated this result transmitted ref erence range: <=1 HPF. The reference range was not used to int erpret this result as normal/abnormal . Lab Interpretation (test Abnormal code = 45224-7) [facility] CenterCT ABDOMEN PELVIS W NPPPXVLK1402-53-11 04:56:59 1. ?Interval removal of left subdiaphragmatic, [...] reviewed this study and agree with the abovereport.[facility] CenterCOVID-19 (ID NOW RAPID TESTING)2020-05-05 03:40:00 Test Item Value Reference Range Interpretation Comments SARS-CoV-2 Rapid ID NOW Not Detected Not Detected (test code = 54484-8) GILBERTO (test code = GILBERTO) ID NOW COVID-19 Assay is an isothermal nucleic acid amplification test intended for the qualitative detection of nucleic acid from SARS-CoV-2 viral RNA in nasopharyngeal ([employer]DEL [employer]) specimens. It is used under Emergency Use [...] indicated. Lab Interpretation Normal (test code = 71585-8) [facility]. METABOLIC PANEL (71129)2020-05-05 03:02:00 Test Item Value Reference Range Interpretation Comments NA (test code = 134 mmol/L 135-145 L 0370447546) K (test code = 4.7 mmol/L 3.5-5 2136609348) CL (test code = 99 mmol/L 98-108 7091977331) CO2 TOTAL (test code = 24 mmol/L 23-31 8959942893) AGAP (test code = 2-16 0721258266) BUN (test code = 37 mg/dL 7-23 H 3364002776) GLUCOSE (test code = 105 mg/dL 70-110 6888387262) CREATININE (test code = 0.94 mg/dL 0.6-1.25 4769559330) TOTAL BILI (test code = 0.5 mg/dL 0.1-1.3 7829848257) CALCIUM (test code = 8.8 mg/dL 8.6-10.6 5648707868) T PROTEIN (test code = 6.2 g/dL 6.3-8.2 L 2980372250) ALBUMIN (test code = 3.0 g/dL 3.5-5 L 1893484981) ALK PHOS (test code = 150 U/L 34-122 H 8548543206) ALTv (test code = 28 U/L 5-50 1742-6) AST(SGOT) (test code = 23 U/L 13-40 4479454076) eGFR Calculation mL/min/1.73m2 (Non-) (test code = 0855990526) eGFR Calculation mL/min/1.73m2 () (test code = 5556318710) GILBERTO (test code = GILBERTO) Association of [...] tests). Lab Interpretation Abnormal (test code = 80699-1) [facility] CenterLIPASE2020-09-12 03:02:00 Test Item Value Reference Range Interpretation Comments LIPASE (test code = 1434252919) 323 U/L 0-220 H Lab Interpretation (test code = Abnormal 00689-8) [facility] WITH WZPZ2665-46-86 02:43:00 Test Item Value Reference Range Interpretation [...] RDW-SD (test code = 45.7 fL 38.5-51.6 64762-8) RDW-CV (test code = 15.4 % 12.1-15.4 788-0) PLT (test code = See_Comment H [Automated 777-3) message] The system which generated this result transmit dain reference range : 150 - 328 10*3/ ?L. The reference range was not u sed to interpret th is result as normal/abnormal . MPV (test code = 8.9 fL 9.8-13 L 67503-3) NRBC/100 WBC (test See_Comment [Automat ed code = 2129457199) message] The system which generated this result transmit dain reference range : 0.0 - 10.0 /100 WBCs. The reference range was not used to interpret this result as normal/abnormal . NRBC x10^3 (test code <0.01 See_Comment [Auto mated = 8004210476) message] The system which generated this result transmit dain reference range : 10*3/?L. The reference range was not used to interpret this result as normal/abnormal . GRAN MAT (NEUT) % 82.6 % (test code = 770-8) IMM GRAN % (test code 0.60 % = 7805863793) LYMPH % (test code = 8.1 % 736-9) MONO % (test code = 8.1 % 5905-5) EOS % (test code = 0.4 % 713-8) BASO % (test code = 0.2 % 706-2) GRAN MAT x10^3(ANC) 11.18 10*3/uL 1.99-6.95 H (test code = 6790304509) IMM GRAN x10^3 (test 0.08 10*3/uL 0-0.06 H code = 0142934128) LYMPH x10^3 (test code 1.10 10*3/uL 1.09-3.23 = 731-0) MONO x10^3 (test code 1.09 10*3/uL 0.36-1.02 H = 742-7) EOS x10^3 (test code = 0.05 10*3/uL 0.06-0.53 L 711-2) BASO x10^3 (test code 0.03 10*3/uL 0.01-0.09 = 704-7) Lab Interpretation Abnormal (test code = 34321-4) [facility] METABOLIC PANEL (NA, K, CL, CO2, GLUCOSE, BUN, CREATININE, CA)2020-05-01 12:25:00 Test Item Value Reference Range Interpretation Comments NA (test code = 131 mmol/L 135-145 L 4269708063) K (test code = 4.7 mmol/L 3.5-5 5568776001) CL (test code = 97 mmol/L 98-108 L 3097224481) CO2 TOTAL (test code = 25 mmol/L 23-31 8489085162) AGAP (test code = 2-16 5172092542) BUN (test code = 30 mg/dL 7-23 H 4370995911) GLUCOSE (test code = 111 mg/dL 70-110 H 6873089609) CREATININE (test code = 0.69 mg/dL 0.6-1.25 4951139222) CALCIUM (test code = 9.3 mg/dL 8.6-10.6 3634076777) eGFR Calculation mL/min/1.73m2 (Non-) (test code = 5049581234) eGFR Calculation mL/min/1.73m2 () (test code = 4010878659) GILBERTO (test code = GILBERTO) Association of [...] tests). Lab Interpretation Abnormal (test code = 47835-5) [facility] CenterMAGNESIUM2020-09-08 12:07:00 Test Item Value Reference Range Interpretation Comments MAGNESIUM (test code = 6218988624) 2.3 mg/dL 1.7-2.4 Lab Interpretation (test code = Normal 90447-2) [facility] Test Item Value Reference Range Interpretation Comments PHOSPHORUS (test code = 5515506988) 4.6 mg/dL 2.5-5 Lab Interpretation (test code = Normal 34520-1) [facility] [id number] 11:44:00 Test Item Value Reference Range Interpretation [...] RDW-SD (test code = 44.9 fL 38.5-51.6 89908-6) RDW-CV (test code = 14.8 % 12.1-15.4 788-0) PLT (test code = See_Comment H [Automated 777-3) message] The system which generated this result transmit dain reference range : 150 - 328 10*3/ ?L. The reference range was not u sed to interpret th is result as normal/abnormal . MPV (test code = 9.1 fL 9.8-13 L 85919-9) NRBC/100 WBC (test See_Comment [Automat ed code = 9675862516) message] The system which generated this result transmit dain reference range : 0.0 - 10.0 /100 WBCs. The reference range was not used to interpret this result as normal/abnormal . NRBC x10^3 (test code <0.01 See_Comment [Auto mated = 3364379005) message] The system which generated this result transmit dain reference range : 10*3/?L. The reference range was not used to interpret this result as normal/abnormal . GRAN MAT (NEUT) % 81.4 % (test code = 770-8) IMM GRAN % (test code 0.70 % = 9575457974) LYMPH % (test code = 8.7 % 736-9) MONO % (test code = 8.5 % 5905-5) EOS % (test code = 0.3 % 713-8) BASO % (test code = 0.4 % 706-2) GRAN MAT x10^3(ANC) 12.01 10*3/uL 1.99-6.95 H (test code = 8243239791) IMM GRAN x10^3 (test 0.10 10*3/uL 0-0.06 H code = 2966267128) LYMPH x10^3 (test code 1.28 10*3/uL 1.09-3.23 = 731-0) MONO x10^3 (test code 1.25 10*3/uL 0.36-1.02 H = 742-7) EOS x10^3 (test code = 0.04 10*3/uL 0.06-0.53 L 711-2) BASO x10^3 (test code 0.06 10*3/uL 0.01-0.09 = 704-7) Lab Interpretation Abnormal (test code = 70479-4) [facility] METABOLIC PANEL (NA, K, CL, CO2, GLUCOSE, BUN, CREATININE, CA)2020-04-29 12:08:00 Test Item Value Reference Range Interpretation Comments NA (test code = 130 mmol/L 135-145 L 5598114369) K (test code = 5.0 mmol/L 3.5-5 7483183997) CL (test code = 94 mmol/L 98-108 L 6966288245) CO2 TOTAL (test code = 27 mmol/L 23-31 8684259428) AGAP (test code = 2-16 2557861320) BUN (test code = 35 mg/dL 7-23 H 0776691530) GLUCOSE (test code = 116 mg/dL 70-110 H 6572237011) CREATININE (test code = 0.76 mg/dL 0.6-1.25 4585072869) CALCIUM (test code = 9.0 mg/dL 8.6-10.6 3323025782) eGFR Calculation mL/min/1.73m2 (Non-) (test code = 5259390565) eGFR Calculation mL/min/1.73m2 () (test code = 0837505954) GILBERTO (test code = GILBERTO) Association of [...] tests). Lab Interpretation Abnormal (test code = 60521-3) [facility] 12:01:00 Test Item Value Reference Range Interpretation Comments MAGNESIUM (test code = 3596257717) 2.3 mg/dL 1.7-2.4 Lab Interpretation (test code = Normal 68776-1) [facility] 12:01:00 Test Item Value Reference Range Interpretation Comments PHOSPHORUS (test code = 1123852801) 4.5 mg/dL 2.5-5 Lab Interpretation (test code = Normal 97001-1) [facility] [id number] 11:52:00 Test Item Value Reference Range Interpretation [...] RDW-SD (test code = 44.4 fL 38.5-51.6 50595-9) RDW-CV (test code = 14.7 % 12.1-15.4 788-0) PLT (test code = See_Comment H [Automated 777-3) message] The system which generated this result transmit dain reference range : 150 - 328 10*3/ ?L. The reference range was not u sed to interpret th is result as normal/abnormal . MPV (test code = 9.1 fL 9.8-13 L 87728-6) NRBC/100 WBC (test See_Comment [Automat ed code = 1610671026) message] The system which generated this result transmit dain reference range : 0.0 - 10.0 /100 WBCs. The reference range was not used to interpret this result as normal/abnormal . NRBC x10^3 (test code <0.01 See_Comment [Auto mated = 2520855574) message] The system which generated this result transmit dain reference range : 10*3/?L. The reference range was not used to interpret this result as normal/abnormal . GRAN MAT (NEUT) % 82.5 % (test code = 770-8) IMM GRAN % (test code 1.30 % = 6905705254) LYMPH % (test code = 7.1 % 736-9) MONO % (test code = 8.5 % 5905-5) EOS % (test code = 0.3 % 713-8) BASO % (test code = 0.3 % 706-2) GRAN MAT x10^3(ANC) 14.27 10*3/uL 1.99-6.95 H (test code = 4388511268) IMM GRAN x10^3 (test 0.23 10*3/uL 0-0.06 H code = 3535366383) LYMPH x10^3 (test code 1.23 10*3/uL 1.09-3.23 = 731-0) MONO x10^3 (test code 1.47 10*3/uL 0.36-1.02 H = 742-7) EOS x10^3 (test code = 0.05 10*3/uL 0.06-0.53 L 711-2) BASO x10^3 (test code 0.06 10*3/uL 0.01-0.09 = 704-7) Lab Interpretation Abnormal (test code = 15178-4) [facility] METABOLIC PANEL (NA, K, CL, CO2, GLUCOSE, BUN, CREATININE, CA)2020-04-28 10:15:00 Test Item Value Reference Range Interpretation Comments NA (test code = 130 mmol/L 135-145 L 0712589666) K (test code = 5.3 mmol/L 3.5-5 H 7649054854) CL (test code = 91 mmol/L 98-108 L 0213567841) CO2 TOTAL (test code = 29 mmol/L 23-31 4832988734) AGAP (test code = 2-16 1774889999) BUN (test code = 32 mg/dL 7-23 H 9345775038) GLUCOSE (test code = 101 mg/dL 70-110 3697292173) CREATININE (test code = 0.74 mg/dL 0.6-1.25 8007110703) CALCIUM (test code = 9.5 mg/dL 8.6-10.6 4748413606) eGFR Calculation mL/min/1.73m2 (Non-) (test code = 5996548420) eGFR Calculation mL/min/1.73m2 () (test code = 9636953065) GILBERTO (test code = GILBERTO) Association of [...] tests). Lab Interpretation Abnormal (test code = 89498-6) [facility] 10:12:00 Test Item Value Reference Range Interpretation Comments MAGNESIUM (test code = 7117682524) 2.3 mg/dL 1.7-2.4 Lab Interpretation (test code = Normal 62411-2) [facility] WITH [id number] 09:55:00 Test Item Value Reference Range Interpretation [...] RDW-SD (test code = 45.1 fL 38.5-51.6 85264-9) RDW-CV (test code = 14.7 % 12.1-15.4 788-0) PLT (test code = See_Comment H [Automated 777-3) message] The system which generated this result transmit dain reference range : 150 - 328 10*3/ ?L. The reference range was not u sed to interpret th is result as normal/abnormal . MPV (test code = 9.5 fL 9.8-13 L 35783-3) NRBC/100 WBC (test See_Comment [Automat ed code = 8750287448) message] The system which generated this result transmit dain reference range : 0.0 - 10.0 /100 WBCs. The reference range was not used to interpret this result as normal/abnormal . NRBC x10^3 (test code <0.01 See_Comment [Auto mated = 8137865937) message] The system which generated this result transmit dain reference range : 10*3/?L. The reference range was not used to interpret this result as normal/abnormal . GRAN MAT (NEUT) % 81.1 % (test code = 770-8) IMM GRAN % (test code 1.40 % = 9214413057) LYMPH % (test code = 8.6 % 736-9) MONO % (test code = 7.9 % 5905-5) EOS % (test code = 0.5 % 713-8) BASO % (test code = 0.5 % 706-2) GRAN MAT x10^3(ANC) 14.68 10*3/uL 1.99-6.95 H (test code = 2575779286) IMM GRAN x10^3 (test 0.25 10*3/uL 0-0.06 H code = 5581024067) LYMPH x10^3 (test code 1.55 10*3/uL 1.09-3.23 = 731-0) MONO x10^3 (test code 1.43 10*3/uL 0.36-1.02 H = 742-7) EOS x10^3 (test code = 0.09 10*3/uL 0.06-0.53 711-2) BASO x10^3 (test code 0.09 10*3/uL 0.01-0.09 = 704-7) Lab Interpretation Abnormal (test code = 15338-3) [facility] METABOLIC PANEL (NA, K, CL, CO2, GLUCOSE, BUN, CREATININE, CA)2020-04-27 10:20:00 Test Item Value Reference Range Interpretation Comments NA (test code = 130 mmol/L 135-145 L 8458525803) K (test code = 4.5 mmol/L 3.5-5 2528699263) CL (test code = 93 mmol/L 98-108 L 5248223208) CO2 TOTAL (test code = 28 mmol/L 23-31 6207587593) AGAP (test code = 2-16 2293212490) BUN (test code = 31 mg/dL 7-23 H 7093182833) GLUCOSE (test code = 102 mg/dL 70-110 3580973486) CREATININE (test code = 0.81 mg/dL 0.6-1.25 5598143359) CALCIUM (test code = 9.0 mg/dL 8.6-10.6 6535683986) eGFR Calculation mL/min/1.73m2 (Non-) (test code = 8507094546) eGFR Calculation mL/min/1.73m2 () (test code = 4350504687) GILBERTO (test code = GILBERTO) Association of [...] tests). Lab Interpretation Abnormal (test code = 09430-7) [facility] 10:20:00 Test Item Value Reference Range Interpretation Comments MAGNESIUM (test code = 6691549713) 2.2 mg/dL 1.7-2.4 Lab Interpretation (test code = Normal 98102-5) [facility] WITH [id number] 09:49:00 Test Item Value Reference Range Interpretation [...] RDW-SD (test code = 45.2 fL 38.5-51.6 36835-8) RDW-CV (test code = 14.5 % 12.1-15.4 788-0) PLT (test code = See_Comment H [Automated 777-3) message] The system which generated this result transmit dain reference range : 150 - 328 10*3/ ?L. The reference range was not u sed to interpret th is result as normal/abnormal . MPV (test code = 9.0 fL 9.8-13 L 30936-2) NRBC/100 WBC (test See_Comment [Automat ed code = 2800578573) message] The system which generated this result transmit dain reference range : 0.0 - 10.0 /100 WBCs. The reference range was not used to interpret this result as normal/abnormal . NRBC x10^3 (test code <0.01 See_Comment [Auto mated = 9225751138) message] The system which generated this result transmit dain reference range : 10*3/?L. The reference range was not used to interpret this result as normal/abnormal . GRAN MAT (NEUT) % 80.9 % (test code = 770-8) IMM GRAN % (test code 1.30 % = 3510287696) LYMPH % (test code = 8.9 % 736-9) MONO % (test code = 7.7 % 5905-5) EOS % (test code = 0.6 % 713-8) BASO % (test code = 0.6 % 706-2) GRAN MAT x10^3(ANC) 13.18 10*3/uL 1.99-6.95 H (test code = 4345782111) IMM GRAN x10^3 (test 0.21 10*3/uL 0-0.06 H code = 9815259584) LYMPH x10^3 (test code 1.45 10*3/uL 1.09-3.23 = 731-0) MONO x10^3 (test code 1.26 10*3/uL 0.36-1.02 H = 742-7) EOS x10^3 (test code = 0.09 10*3/uL 0.06-0.53 711-2) BASO x10^3 (test code 0.10 10*3/uL 0.01-0.09 H = 704-7) Lab Interpretation Abnormal (test code = 81216-4) [facility] (NA, K, CL, CO2, GLUCOSE, BUN, CREATININE, CA)2020-04-26 11:29:00 Test Item Value Reference Range Interpretation Comments NA (test code = 133 mmol/L 135-145 L 2910514254) K (test code = 4.7 mmol/L 3.5-5 2976006498) CL (test code = 98 mmol/L 98-108 8933164006) CO2 TOTAL (test code = 25 mmol/L 23-31 2729632576) AGAP (test code = 2-16 9169583666) BUN (test code = 26 mg/dL 7-23 H 9551836463) GLUCOSE (test code = 97 mg/dL 70-110 3237045815) CREATININE (test code = 0.73 mg/dL 0.6-1.25 9467428135) CALCIUM (test code = 8.7 mg/dL 8.6-10.6 3106859305) eGFR Calculation mL/min/1.73m2 (Non-) (test code = 4067882996) eGFR Calculation mL/min/1.73m2 () (test code = 9657996292) GILBERTO (test code = GILBERTO) Association of [...] tests). Lab Interpretation Abnormal (test code = 56549-7) [facility] Test Item Value Reference Range Interpretation Comments MAGNESIUM (test code = 3138967063) 2.1 mg/dL 1.7-2.4 Lab Interpretation (test code = Normal 57940-3) [facility] WITH [id number] 10:27:00 Test Item Value Reference Range Interpretation [...] RDW-SD (test code = 45.4 fL 38.5-51.6 74861-5) RDW-CV (test code = 14.5 % 12.1-15.4 788-0) PLT (test code = See_Comment H [Automated 777-3) message] The system which generated this result transmit dain reference range : 150 - 328 10*3/ ?L. The reference range was not u sed to interpret th is result as normal/abnormal . MPV (test code = 9.3 fL 9.8-13 L 26306-7) NRBC/100 WBC (test See_Comment [Automat ed code = 0197431832) message] The system which generated this result transmit dain reference range : 0.0 - 10.0 /100 WBCs. The reference range was not used to interpret this result as normal/abnormal . NRBC x10^3 (test code <0.01 See_Comment [Auto mated = 0275949179) message] The system which generated this result transmit dain reference range : 10*3/?L. The reference range was not used to interpret this result as normal/abnormal . GRAN MAT (NEUT) % 79.6 % (test code = 770-8) IMM GRAN % (test code 1.30 % = 7699191670) LYMPH % (test code = 8.6 % 736-9) MONO % (test code = 9.3 % 5905-5) EOS % (test code = 0.8 % 713-8) BASO % (test code = 0.4 % 706-2) GRAN MAT x10^3(ANC) 12.46 10*3/uL 1.99-6.95 H (test code = 5222100845) IMM GRAN x10^3 (test 0.21 10*3/uL 0-0.06 H code = 3061210499) LYMPH x10^3 (test code 1.34 10*3/uL 1.09-3.23 = 731-0) MONO x10^3 (test code 1.45 10*3/uL 0.36-1.02 H = 742-7) EOS x10^3 (test code = 0.13 10*3/uL 0.06-0.53 711-2) BASO x10^3 (test code 0.07 10*3/uL 0.01-0.09 = 704-7) Lab Interpretation Abnormal (test code = 77007-9) [facility] METABOLIC PANEL (NA, K, CL, CO2, GLUCOSE, BUN, CREATININE, CA)2020-04-25 10:03:00 Test Item Value Reference Range Interpretation Comments NA (test code = 133 mmol/L 135-145 L 0057439489) K (test code = 4.6 mmol/L 3.5-5 9170049679) CL (test code = 96 mmol/L 98-108 L 6039773213) CO2 TOTAL (test code = 27 mmol/L 23-31 7905428195) AGAP (test code = 2-16 2728360500) BUN (test code = 21 mg/dL 7-23 8292017380) GLUCOSE (test code = 108 mg/dL 70-110 7372855766) CREATININE (test code = 0.76 mg/dL 0.6-1.25 9732809418) CALCIUM (test code = 9.5 mg/dL 8.6-10.6 9508506617) eGFR Calculation mL/min/1.73m2 (Non-) (test code = 9073284223) eGFR Calculation mL/min/1.73m2 () (test code = 4939693496) GILBERTO (test code = GILBERTO) Association of [...] tests). Lab Interpretation Abnormal (test code = 50284-7) [facility] 10:03:00 Test Item Value Reference Range Interpretation Comments MAGNESIUM (test code = 6325206253) 2.4 mg/dL 1.7-2.4 Lab Interpretation (test code = Normal 13950-1) [facility] WITH [id number] 09:48:00 Test Item Value Reference Range Interpretation [...] RDW-SD (test code = 45.7 fL 38.5-51.6 46128-6) RDW-CV (test code = 14.3 % 12.1-15.4 788-0) PLT (test code = See_Comment HH [Automated 777-3) message] The system which generated this result transmit dain reference range : 150 - 328 10*3/ ?L. The reference range was not u sed to interpret th is result as normal/abnormal . MPV (test code = 9.1 fL 9.8-13 L 28208-2) NRBC/100 WBC (test See_Comment [Automat ed code = 0354059117) message] The system which generated this result transmit dain reference range : 0.0 - 10.0 /100 WBCs. The reference range was not used to interpret this result as normal/abnormal . NRBC x10^3 (test code <0.01 See_Comment [Auto mated = 5950308508) message] The system which generated this result transmit dain reference range : 10*3/?L. The reference range was not used to interpret this result as normal/abnormal . GRAN MAT (NEUT) % 78.9 % (test code = 770-8) IMM GRAN % (test code 1.70 % = 0951886821) LYMPH % (test code = 8.7 % 736-9) MONO % (test code = 9.1 % 5905-5) EOS % (test code = 0.9 % 713-8) BASO % (test code = 0.7 % 706-2) GRAN MAT x10^3(ANC) 11.96 10*3/uL 1.99-6.95 H (test code = 2887606960) IMM GRAN x10^3 (test 0.26 10*3/uL 0-0.06 H code = 6172939106) LYMPH x10^3 (test code 1.32 10*3/uL 1.09-3.23 = 731-0) MONO x10^3 (test code 1.38 10*3/uL 0.36-1.02 H = 742-7) EOS x10^3 (test code = 0.13 10*3/uL 0.06-0.53 711-2) BASO x10^3 (test code 0.11 10*3/uL 0.01-0.09 H = 704-7) Lab Interpretation Abnormal (test code = 51205-1) [facility] WITH [id number] 10:40:00 Test Item Value Reference Range Interpretation [...] RDW-SD (test code = 46.3 fL 38.5-51.6 47423-6) RDW-CV (test code = 14.5 % 12.1-15.4 788-0) PLT (test code = See_Comment HH [Automated 777-3) message] The sy stem which generated this result transmitted reference range : 150 - 328 10*3/ ?L. The reference r meredith was not used to interpret this result as normal/abnormal . MPV (test code = 9.1 fL 9.8-13 L 93810-3) NRBC/100 WBC (test See_Comment [Automat ed code = 5071488862) message] The system which generated this result transmitted reference range : 0.0 - 10.0 /100 WBCs. The refer ence range was not u sed to interpret th is result as normal/abnormal . NRBC x10^3 (test code <0.01 See_Comment [Auto mated = 3814260649) message] The s ystem which generated this result transmitted reference range : 10*3/?L. The reference range was not used to interpret this result as normal/abnormal . GRAN MAT (NEUT) % 74.7 % (test code = 770-8) IMM GRAN % (test code 2.00 % = 8946903403) LYMPH % (test code = 10.0 % 736-9) MONO % (test code = 11.4 % 5905-5) EOS % (test code = 1.3 % 713-8) BASO % (test code = 0.6 % 706-2) GRAN MAT x10^3(ANC) 9.44 10*3/uL 1.99-6.95 H (test code = 5536986372) IMM GRAN x10^3 (test 0.25 10*3/uL 0-0.06 H code = 9912854502) LYMPH x10^3 (test code 1.26 10*3/uL 1.09-3.23 = 731-0) MONO x10^3 (test code 1.44 10*3/uL 0.36-1.02 H = 742-7) EOS x10^3 (test code = 0.16 10*3/uL 0.06-0.53 711-2) BASO x10^3 (test code 0.07 10*3/uL 0.01-0.09 = 704-7) Lab Interpretation Abnormal (test code = 76498-8) [facility] METABOLIC PANEL (NA, K, CL, CO2, GLUCOSE, BUN, CREATININE, CA)2020-04-24 10:39:00 Test Item Value Reference Range Interpretation Comments NA (test code = 133 mmol/L 135-145 L 6160780021) K (test code = 4.3 mmol/L 3.5-5 0238685019) CL (test code = 99 mmol/L 98-108 6960114241) CO2 TOTAL (test code = 29 mmol/L 23-31 6300323378) AGAP (test code = 2-16 2757341468) BUN (test code = 20 mg/dL 7-23 7162313311) GLUCOSE (test code = 109 mg/dL 70-110 5078161910) CREATININE (test code = 0.78 mg/dL 0.6-1.25 7052397411) CALCIUM (test code = 8.4 mg/dL 8.6-10.6 L 0877625385) eGFR Calculation mL/min/1.73m2 (Non-) (test code = 1019233751) eGFR Calculation mL/min/1.73m2 () (test code = 7997010365) GILBERTO (test code = GILBERTO) Association of [...] tests). Lab Interpretation Abnormal (test code = 06267-8) [facility] 10:39:00 Test Item Value Reference Range Interpretation Comments MAGNESIUM (test code = 6417758973) 2.2 mg/dL 1.7-2.4 Lab Interpretation (test code = Normal 49932-6) [facility] [id number] 09:30:06 1. ?Overall, no significant change in [...] reviewed this study and agree with theabove report.[facility] TH[facility]AX W [id number] 03:46:28 Acute pulmonary emboli in the anterior [...] andmorphology. No significant pericardial thickening or effusion. Sbyhpuli-ed-feawv cardiomediastinal shift. Scattered subcentimeter mediastinal and bilateral [...] andmorphology. No significant pericardial thickening or effusion. Adhwyuur-mg-dabno cardiomediastinal shift.Scattered subcentimeter mediastinal and bilateral hilar [...] reviewed this study and agree with theabove report.[facility] ([facility] NOW RAPID TESTING)2020-04-23 17:45:00 Test Item Value Reference Range Interpretation Comments SARS-CoV-2 Rapid ID NOW Not Detected Not Detected (test code = 42474-4) GILBERTO (test code = GILBERTO) ID NOW COVID-19 Assay is an isothermal nucleic acid amplification test intended for the qualitative detection of nucleic acid from SARS-CoV-2 viral RNA in nasopharyngeal ([employer]) specimens. It is used under Emergency Use [...] indicated. Lab Interpretation Normal (test code = 46815-0) [facility] 17:40:00 Test Item Value Reference Range Interpretation Comments PALB (test code = 80290-9) 11.8 mg/dL 18-45 L Lab Interpretation (test code = Abnormal 67588-2) [facility] 1 [id number] 15:00:55 Stable appearance of left pleural effusion [...] reviewed this study and agree with theabove report.[facility] CenterPOT[facility]SIUM [id number] 14:14:00 Test Item Value Reference Range Interpretation Comments K (test code = 1598571002) 4.8 mmol/L 3.5-5 Lab Interpretation (test code = Normal 50661-8) [facility] [id number] 11:30:00 Test Item Value Reference Range Interpretation Comments WBC (test code = See_Comment H [Automated 3890-2) message] The sy stem which [...] RDW-SD (test code = 45.0 fL 38.5-51.6 92244-8) RDW-CV (test code = 14.5 % 12.1-15.4 788-0) PLT (test code = See_Comment HH [Automated 777-3) message] The sy stem which generated this result transmitted reference range : 150 - 328 10*3/ ?L. The reference r meredith was not used to interpret this result as normal/abnormal . MPV (test code = 9.4 fL 9.8-13 L 42721-3) IPF % (test code = 1.6 % 1.2-10.7 Platelet count 4255054709) measured by fluorescence method. NRBC/100 WBC (test See_Comment [Automat ed code = 0362159930) message] The system which generated this result transmitted reference range : 0.0 - 10.0 /100 WBCs. The refer ence range was not u sed to interpret th is result as normal/abnormal . NRBC x10^3 (test code <0.01 See_Comment [Auto mated = 9526713050) message] The s ystem which generated this result transmitted reference range : 10*3/?L. The reference range was not used to interpret this result as normal/abnormal . GRAN MAT (NEUT) % 73.4 % (test code = 770-8) IMM GRAN % (test code 1.80 % = 4277023639) LYMPH % (test code = 12.6 % 736-9) MONO % (test code = 10.8 % 5905-5) EOS % (test code = 1.0 % 713-8) BASO % (test code = 0.4 % 706-2) GRAN MAT x10^3(ANC) 9.57 10*3/uL 1.99-6.95 H (test code = 0508918043) IMM GRAN x10^3 (test 0.24 10*3/uL 0-0.06 H code = 6647786201) LYMPH x10^3 (test code 1.64 10*3/uL 1.09-3.23 = 731-0) MONO x10^3 (test code 1.41 10*3/uL 0.36-1.02 H = 742-7) EOS x10^3 (test code = 0.13 10*3/uL 0.06-0.53 711-2) BASO x10^3 (test code 0.05 10*3/uL 0.01-0.09 = 704-7) Lab Interpretation Abnormal (test code = 36755-7) [facility] METABOLIC PANEL (NA, K, CL, CO2, GLUCOSE, BUN, CREATININE, CA)2020-04-23 10:52:00 Test Item Value Reference Range Interpretation Comments NA (test code = 132 mmol/L 135-145 L 0968065227) K (test code = 5.7 mmol/L 3.5-5 H 9251384564) CL (test code = 97 mmol/L 98-108 L 4323984878) CO2 TOTAL (test code = 26 mmol/L 23-31 8408892796) AGAP (test code = 2-16 0055542668) BUN (test code = 34 mg/dL 7-23 H 7543444052) GLUCOSE (test code = 101 mg/dL 70-110 7325962237) CREATININE (test code = 0.85 mg/dL 0.6-1.25 4242979910) CALCIUM (test code = 9.0 mg/dL 8.6-10.6 0274634847) eGFR Calculation mL/min/1.73m2 (Non-) (test code = 8870273248) eGFR Calculation mL/min/1.73m2 () (test code = 7509165659) GILBERTO (test code = GILBERTO) Association of [...] tests). Lab Interpretation Abnormal (test code = 13208-2) [facility] Test Item Value Reference Range Interpretation Comments MAGNESIUM (test code = 6378961473) 2.3 mg/dL 1.7-2.4 Lab Interpretation (test code = Normal 07065-1) [facility] [id number] 13:26:55 FINDINGS/IMPRESSION: 1. ?A left pigtail chest [...] pleural effusion COMPARISON: Chest x-ray on 04/21/2020 [facility], Radiant Results Inft User [...] reviewed this study and agree with theabove report.[facility] 2020-04-22 13:24:27FINDINGS/IMPRESSION: [...] in bed COMPARISON: Chest x-ray on 04/20/2020 [facility], Radiant Results Inft User [...] this study and agree with theabove report. [facility] (NA, K, CL, CO2, GLUCOSE, BUN, CREATININE, CA)2020-04-22 11:49:00 Test Item Value Reference Range Interpretation Comments NA (test code = 132 mmol/L 135-145 L 5889347685) K (test code = 4.7 mmol/L 3.5-5 1396253901) CL (test code = 97 mmol/L 98-108 L 8025041263) CO2 TOTAL (test code = 30 mmol/L 23-31 1118781957) AGAP (test code = 2-16 0089542513) BUN (test code = 28 mg/dL 7-23 H 9118196727) GLUCOSE (test code = 117 mg/dL 70-110 H 3554955019) CREATININE (test code = 0.88 mg/dL 0.6-1.25 4376613591) CALCIUM (test code = 8.8 mg/dL 8.6-10.6 2265820815) eGFR Calculation mL/min/1.73m2 (Non-) (test code = 1372116464) eGFR Calculation mL/min/1.73m2 () (test code = 8762957528) GILBERTO (test code = GILBERTO) Association of [...] tests). Lab Interpretation Abnormal (test code = 46309-7) [facility] 11:49:00 Test Item Value Reference Range Interpretation Comments MAGNESIUM (test code = 6921014539) 2.4 mg/dL 1.7-2.4 Lab Interpretation (test code = Normal 81125-4) [facility] WITH [id number] 11:23:00 Test Item Value Reference Range Interpretation [...] RDW-SD (test code = 44.9 fL 38.5-51.6 28500-5) RDW-CV (test code = 14.4 % 12.1-15.4 788-0) PLT (test code = See_Comment HH [Automated 777-3) message] The sy stem which generated this result transmitted reference range : 150 - 328 10*3/ ?L. The reference r meredith was not used to interpret this result as normal/abnormal . MPV (test code = 9.5 fL 9.8-13 L 28077-1) NRBC/100 WBC (test See_Comment [Automat ed code = 6058452678) message] The system which generated this result transmitted reference range : 0.0 - 10.0 /100 WBCs. The refer ence range was not u sed to interpret th is result as normal/abnormal . NRBC x10^3 (test code <0.01 See_Comment [Auto mated = 8235283539) message] The s ystem which generated this result transmitted reference range : 10*3/?L. The reference range was not used to interpret this result as normal/abnormal . GRAN MAT (NEUT) % 80.3 % (test code = 770-8) IMM GRAN % (test code 1.50 % = 5550438459) LYMPH % (test code = 7.2 % 736-9) MONO % (test code = 9.7 % 5905-5) EOS % (test code = 0.7 % 713-8) BASO % (test code = 0.6 % 706-2) GRAN MAT x10^3(ANC) 9.99 10*3/uL 1.99-6.95 H (test code = 3331703013) IMM GRAN x10^3 (test 0.19 10*3/uL 0-0.06 H code = 8601306918) LYMPH x10^3 (test code 0.90 10*3/uL 1.09-3.23 L = 731-0) MONO x10^3 (test code 1.21 10*3/uL 0.36-1.02 H = 742-7) EOS x10^3 (test code = 0.09 10*3/uL 0.06-0.53 711-2) BASO x10^3 (test code 0.07 10*3/uL 0.01-0.09 = 704-7) Lab Interpretation Abnormal (test code = 62606-8) [facility] WITH [id number] 14:15:00 Test Item Value Reference Range Interpretation [...] RDW-SD (test code = 44.4 fL 38.5-51.6 39180-9) RDW-CV (test code = 14.2 % 12.1-15.4 788-0) PLT (test code = See_Comment HH [Automated 777-3) message] The sy stem which generated this result transmitted reference range : 150 - 328 10*3/ ?L. The reference r meredith was not used to interpret this result as normal/abnormal . MPV (test code = 9.0 fL 9.8-13 L 48907-5) NRBC/100 WBC (test See_Comment [Automat ed code = 8389969908) message] The system which generated this result transmitted reference range : 0.0 - 10.0 /100 WBCs. The refer ence range was not u sed to interpret th is result as normal/abnormal . NRBC x10^3 (test code <0.01 See_Comment [Auto mated = 0305127805) message] The s ystem which generated this result transmitted reference range : 10*3/?L. The reference range was not used to interpret this result as normal/abnormal . GRAN MAT (NEUT) % 76.4 % (test code = 770-8) IMM GRAN % (test code 1.30 % = 6182955625) LYMPH % (test code = 10.9 % 736-9) MONO % (test code = 9.6 % 5905-5) EOS % (test code = 1.1 % 713-8) BASO % (test code = 0.7 % 706-2) GRAN MAT x10^3(ANC) 9.41 10*3/uL 1.99-6.95 H (test code = 2748582212) IMM GRAN x10^3 (test 0.16 10*3/uL 0-0.06 H code = 2849520839) LYMPH x10^3 (test code 1.34 10*3/uL 1.09-3.23 = 731-0) MONO x10^3 (test code 1.18 10*3/uL 0.36-1.02 H = 742-7) EOS x10^3 (test code = 0.13 10*3/uL 0.06-0.53 711-2) BASO x10^3 (test code 0.08 10*3/uL 0.01-0.09 = 704-7) Lab Interpretation Abnormal (test code = 52220-8) [facility] METABOLIC PANEL (NA, K, CL, CO2, GLUCOSE, BUN, CREATININE, CA)2020-04-21 13:47:00 Test Item Value Reference Range Interpretation Comments NA (test code = 130 mmol/L 135-145 L 5377471031) K (test code = 4.8 mmol/L 3.5-5 6768055473) CL (test code = 95 mmol/L 98-108 L 7352785094) CO2 TOTAL (test code = 29 mmol/L 23-31 6746060808) AGAP (test code = 2-16 4971571869) BUN (test code = 25 mg/dL 7-23 H 6253853850) GLUCOSE (test code = 98 mg/dL 70-110 5217539934) CREATININE (test code = 0.78 mg/dL 0.6-1.25 5304222918) CALCIUM (test code = 8.2 mg/dL 8.6-10.6 L 2030776565) eGFR Calculation mL/min/1.73m2 (Non-) (test code = 7958147911) eGFR Calculation mL/min/1.73m2 () (test code = 5889731889) GILBERTO (test code = GILBERTO) Association of [...] tests). Lab Interpretation Abnormal (test code = 33185-4) [facility] Test Item Value Reference Range Interpretation Comments MAGNESIUM (test code = 0754377117) 2.1 mg/dL 1.7-2.4 Lab Interpretation (test code = Normal 18357-3) [facility] 21:30:00 Test Item Value Reference Range Interpretation Comments PALB (test code = 77089-4) 9.3 mg/dL 18-45 L Lab Interpretation (test code = Abnormal 92216-6) [facility] [id number] 14:32:00 Test Item Value Reference Range Interpretation Comments BODY FLUID CULT No organisms isolated (test code = 611-4) Gram stain (test Occasional (Rare) code = 664-3) Polymorphonuclear leukocytes [facility] [id number] 13:09:21EXAM: XR CHEST 1 VW HISTORY: ct [...] The heart and great vessels are normal. [facility] (NA, K, CL, CO2, GLUCOSE, BUN, CREATININE, CA)2020-04-20 11:00:00 Test Item Value Reference Range Interpretation Comments NA (test code = 132 mmol/L 135-145 L 0465183384) K (test code = 5.2 mmol/L 3.5-5 H 6440008090) CL (test code = 100 mmol/L 98-108 2278702106) CO2 TOTAL (test code = 24 mmol/L 23-31 6229236980) AGAP (test code = 2-16 5225302006) BUN (test code = 19 mg/dL 7-23 6053187336) GLUCOSE (test code = 121 mg/dL 70-110 H 0008567175) CREATININE (test code = 0.77 mg/dL 0.6-1.25 0619568901) CALCIUM (test code = 8.2 mg/dL 8.6-10.6 L 5484564525) eGFR Calculation mL/min/1.73m2 (Non-) (test code = 3186195541) eGFR Calculation mL/min/1.73m2 () (test code = 9284362220) GILBERTO (test code = GILBERTO) Association of [...] tests). Lab Interpretation Abnormal (test code = 46425-7) [facility]28 11:00:00 Test Item Value Reference Range Interpretation Comments MAGNESIUM (test code = 6024871272) 2.1 mg/dL 1.7-2.4 Lab Interpretation (test code = Normal 59161-5) [facility] 11:00:00 Test Item Value Reference Range Interpretation Comments PHOSPHORUS (test code = 8808300583) 3.9 mg/dL 2.5-5 Lab Interpretation (test code = Normal 98626-8) [facility] [id number] 10:23:00 Test Item Value Reference Range Interpretation [...] RDW-SD (test code = 45.2 fL 38.5-51.6 13113-3) RDW-CV (test code = 14.2 % 12.1-15.4 788-0) PLT (test code = See_Comment HH [Automated 777-3) message] The system which generated this result transmit dain reference range : 150 - 328 10*3/ ?L. The reference range was not u sed to interpret th is result as normal/abnormal . MPV (test code = 9.3 fL 9.8-13 L 79203-7) NRBC/100 WBC (test See_Comment [Automat ed code = 6450763604) message] The system which generated this result transmit dain reference range : 0.0 - 10.0 /100 WBCs. The reference range was not used to interpret this result as normal/abnormal . NRBC x10^3 (test code <0.01 See_Comment [Auto mated = 7529495854) message] The system which generated this result transmit dain reference range : 10*3/?L. The reference range was not used to interpret this result as normal/abnormal . GRAN MAT (NEUT) % 79.8 % (test code = 770-8) IMM GRAN % (test code 1.50 % = 1743845220) LYMPH % (test code = 9.8 % 736-9) MONO % (test code = 7.5 % 5905-5) EOS % (test code = 0.6 % 713-8) BASO % (test code = 0.8 % 706-2) GRAN MAT x10^3(ANC) 10.64 10*3/uL 1.99-6.95 H (test code = 8140931536) IMM GRAN x10^3 (test 0.20 10*3/uL 0-0.06 H code = 1824382824) LYMPH x10^3 (test code 1.31 10*3/uL 1.09-3.23 = 731-0) MONO x10^3 (test code 1.00 10*3/uL 0.36-1.02 = 742-7) EOS x10^3 (test code = 0.08 10*3/uL 0.06-0.53 711-2) BASO x10^3 (test code 0.10 10*3/uL 0.01-0.09 H = 704-7) Lab Interpretation Abnormal (test code = 01675-1) [facility] [id number] 12:25:53 No residual pleural effusion noted. Preliminary [...] reviewed this study and agree with theabove report.[facility] (NA, K, CL, CO2, GLUCOSE, BUN, CREATININE, CA)2020-04-19 11:09:00 Test Item Value Reference Range Interpretation Comments NA (test code = 133 mmol/L 135-145 L 2421189510) K (test code = 4.2 mmol/L 3.5-5 9074669719) CL (test code = 101 mmol/L 98-108 5865824201) CO2 TOTAL (test code = 26 mmol/L 23-31 6641823287) AGAP (test code = 2-16 2172279363) BUN (test code = 15 mg/dL 7-23 5596389404) GLUCOSE (test code = 113 mg/dL 70-110 H 5295722463) CREATININE (test code = 0.73 mg/dL 0.6-1.25 5816138656) CALCIUM (test code = 8.1 mg/dL 8.6-10.6 L 3904249647) eGFR Calculation mL/min/1.73m2 (Non-) (test code = 5611429951) eGFR Calculation mL/min/1.73m2 () (test code = 8858314172) GILBERTO (test code = GILBERTO) Association of [...] tests). Lab Interpretation Abnormal (test code = 66427-0) [facility] 11:09:00 Test Item Value Reference Range Interpretation Comments MAGNESIUM (test code = 2615171711) 2.1 mg/dL 1.7-2.4 Lab Interpretation (test code = Normal 29260-9) [facility] 11:09:00 Test Item Value Reference Range Interpretation Comments PHOSPHORUS (test code = 5412040610) 3.9 mg/dL 2.5-5 Lab Interpretation (test code = Normal 14902-0) [facility] [id number] 10:59:00 Test Item Value Reference Range Interpretation [...] RDW-SD (test code = 46.0 fL 38.5-51.6 06215-8) RDW-CV (test code = 14.2 % 12.1-15.4 788-0) PLT (test code = See_Comment HH [Automated 777-3) message] The sy stem which generated this result transmitted reference range : 150 - 328 10*3/ ?L. The reference r meredith was not used to interpret this result as normal/abnormal . MPV (test code = 9.3 fL 9.8-13 L 61319-5) NRBC/100 WBC (test See_Comment [Automat ed code = 1101311101) message] The system which generated this result transmitted reference range : 0.0 - 10.0 /100 WBCs. The refer ence range was not u sed to interpret th is result as normal/abnormal . NRBC x10^3 (test code <0.01 See_Comment [Auto mated = 8233766530) message] The s ystem which generated this result transmitted reference range : 10*3/?L. The reference range was not used to interpret this result as normal/abnormal . GRAN MAT (NEUT) % 79.2 % (test code = 770-8) IMM GRAN % (test code 1.00 % = 0080497725) LYMPH % (test code = 11.4 % 736-9) MONO % (test code = 6.7 % 5905-5) EOS % (test code = 1.0 % 713-8) BASO % (test code = 0.7 % 706-2) GRAN MAT x10^3(ANC) 9.49 10*3/uL 1.99-6.95 H (test code = 1857050539) IMM GRAN x10^3 (test 0.12 10*3/uL 0-0.06 H code = 0437226142) LYMPH x10^3 (test code 1.36 10*3/uL 1.09-3.23 = 731-0) MONO x10^3 (test code 0.80 10*3/uL 0.36-1.02 = 742-7) EOS x10^3 (test code = 0.12 10*3/uL 0.06-0.53 711-2) BASO x10^3 (test code 0.08 10*3/uL 0.01-0.09 = 704-7) Lab Interpretation Abnormal (test code = 34518-9) [facility] [id number] 22:29:00 Test Item Value Reference Range Interpretation Comments Blood Culture-Aerobic No organisms No growth Previo us (test code = 95601-8) isolated prelim inary verified result was Culture In Progress on 04/13/2020 at 06 06 CDT Blood Culture positive. No growth AA Previous Culture-Anaerobic See Blood Culture preli minary (test code = 74908-9) Workup for verifi ed result additional was Culture In information. Progress on 04/12/2020 at 18 01 CDT Lab Interpretation Abnormal (test code = 65065-9) [facility]UBE WITH IMAGING 2020-04-18 15:38:00Successful image guided 10 Czech pigtail chest tube insertioninto the left pleural [...] was obtained. Prior to beginning the procedure, Candor Protocolwas performed to confirm the patient's identity [...] pleural space. The tractwas dilated to 10 Czech, and a 10 Czech pigtail chest tube was insertedand coiled within [...] was obtained. Prior to beginning the procedure, Candor Protocolwas performed to confirm the patient's identity [...] pleural space. The tractwas dilated to 10 Czech, and a 10 Czech pigtail chest tube was insertedand coiled within [...] of pleural fluid. IMPRESSIONSuccessful image guided 10 Czech pigtail chest tube insertioninto the left pleural space. PLAN: Post procedure chest radiograph will be obtained.[facility] [id number] 13:37:38 Hazy left midlung opacity, may represent [...] reviewed this study and agree with the abovereport.[facility] (NA, K, CL, CO2, GLUCOSE, BUN, CREATININE, CA)2020-04-18 11:18:00 Test Item Value Reference Range Interpretation Comments NA (test code = 134 mmol/L 135-145 L 0792643179) K (test code = 4.4 mmol/L 3.5-5 3603745719) CL (test code = 102 mmol/L 98-108 9850710651) CO2 TOTAL (test code = 26 mmol/L 23-31 7181829845) AGAP (test code = 2-16 9918140175) BUN (test code = 12 mg/dL 7-23 3975106392) GLUCOSE (test code = 106 mg/dL 70-110 7179868300) CREATININE (test code = 0.74 mg/dL 0.6-1.25 8289536365) CALCIUM (test code = 7.5 mg/dL 8.6-10.6 L 8133528032) eGFR Calculation mL/min/1.73m2 (Non-) (test code = 0467850023) eGFR Calculation mL/min/1.73m2 () (test code = 5821113936) GILBERTO (test code = GILBERTO) Association of [...] tests). Lab Interpretation Abnormal (test code = 99109-6) [facility]2020-[facility] 11:18:00 Test Item Value Reference Range Interpretation Comments MAGNESIUM (test code = 1875540702) 2.0 mg/dL 1.7-2.4 Lab Interpretation (test code = Normal 75199-2) [facility]2020-[facility]26 11:18:00 Test Item Value Reference Range Interpretation Comments PHOSPHORUS (test code = 5896204464) 3.4 mg/dL 2.5-5 Lab Interpretation (test code = Normal 97013-0) [facility] WITH [id number] 10:46:00 Test Item Value Reference Range Interpretation [...] RDW-SD (test code = 46.5 fL 38.5-51.6 64392-5) RDW-CV (test code = 14.5 % 12.1-15.4 788-0) PLT (test code = See_Comment HH [Automated 777-3) message] The system which generated this result transmit dain reference range : 150 - 328 10*3/ ?L. The reference range was not u sed to interpret th is result as normal/abnormal . MPV (test code = 9.6 fL 9.8-13 L 15526-5) NRBC/100 WBC (test See_Comment [Automat ed code = 6802759243) message] The system which generated this result transmit dain reference range : 0.0 - 10.0 /100 WBCs. The reference range was not used to interpret this result as normal/abnormal . NRBC x10^3 (test code <0.01 See_Comment [Auto mated = 4013874982) message] The system which generated this result transmit dain reference range : 10*3/?L. The reference range was not used to interpret this result as normal/abnormal . GRAN MAT (NEUT) % 82.1 % (test code = 770-8) IMM GRAN % (test code 0.90 % = 7500844350) LYMPH % (test code = 9.2 % 736-9) MONO % (test code = 6.6 % 5905-5) EOS % (test code = 0.7 % 713-8) BASO % (test code = 0.5 % 706-2) GRAN MAT x10^3(ANC) 10.02 10*3/uL 1.99-6.95 H (test code = 7177870587) IMM GRAN x10^3 (test 0.11 10*3/uL 0-0.06 H code = 7135029434) LYMPH x10^3 (test code 1.12 10*3/uL 1.09-3.23 = 731-0) MONO x10^3 (test code 0.80 10*3/uL 0.36-1.02 = 742-7) EOS x10^3 (test code = 0.08 10*3/uL 0.06-0.53 711-2) BASO x10^3 (test code 0.06 10*3/uL 0.01-0.09 = 704-7) Lab Interpretation Abnormal (test code = 68531-9) [facility] [id number] 20:01:00 Test Item Value Reference Range Interpretation Comments Blood Culture-Aerobic No organisms No growth Previo us (test code = 38863-2) isolated prelim inary verified result was Culture [...] Culture-Anaerobic isolated preliminar y (test code = 67247-4) verifi ed result was Culture In Progress [...] CDT Lab Interpretation Normal (test code = 83117-7) [facility] [id number] 19:38:57 FINDINGS/IMPRESSION: There are 2 left-sided chest [...] 2:35 PM on 04/17/[address] Mathieu Chapa.[facility] CenterCyto Pleural [id number] 17:29:00 Test Item Value Reference Range Interpretation Comments Case Report (test code Non-Gynecologic = 3258614352) Cytology ?Case: [id number] ?Authorizing Provider: ?Vance Stafford MD ?Collected: ? 04/16/2020 1650 ?Ordering Location: ? ? Surgery ([facility]) ? Received: ?04/16/2020 1809 ?Pathologist: ? Alice Aj MD ? Specimen: ? ?PLEURAL, LEFT, EFFUSION ? Final Diagnosis (test u7otsMRpFWDpz5wgSPVllS code = 7337423785) FuZzEwMzNcZnRuYmpcdWMx TVvsmnXlFQfdd9WmA6HjEa AwMFxhbnNpXGRlZmxhbmcx HWZgJAG5nnKiJYXgIZflHK WbAMjzPc3eyHBldNbwXaTa UMOrf9khazNNvkrddNw2r3 rcYWYlZqY3nWPdWZqiY6uc miJtiJLgJLJxVMn5zR87UB BjfV3ffCFaYEyxnjKvWaG8 YKwwRPLjYiN3TXDnnNGlLK UmB9tqBLYdFUtrOJFzTYbv oBCqPLY8dHoeo2I0pYKdnJ UvbTakQeBgBxJvZZNVl0Nd UYu1mQitT4PhKYKzUnW7wJ QgUGFyYWdyYXBoIEZvbnQ7 zT90OKczpqS6pFYvc5Lgr2 7ts451bL1tcJImGWF9FVRm UTAofOObBWCrAWJ8JQPwaG NwY4rkYCgxXZ6sywetNZB7 MFxtYXJndDcyMFxtYXJnYj ZxbNIaITGhjRblJBrzx489 ODM3ClFlVD0mZ1Oim4X0jQ 9maXRcZGVmdGFiNzIwXGZv hz7xdSErYQrpm8BrRCE8xe X5oSHtqPLsAOAeHG65Rkqt u3RqXfteIIS4EJOkqdEcc2 Fys5sbBsHtimJyV9owQ2Tf ZHJoZWFkXHBnYnJkcmZvb3 Syw8LjzWGqqJu7g6sgRDXb BCYfsQmcw0cyRDT3GIGpH9 J5wZWtc9ajVSorRYQsdNI9 shVoFLZdnTBmU6ZeqU5gQS wrHR5kckp8d6fdQaWwYG9v kmvfq9lfGFgyLGWdWAN3Ds BzRDRxb7QdnsqgPzSgu3Sh kCJlVJqaW35kx814SZGeih AcD8drfREagirejDUxqkmy MTxbioM8HLNpxqBzgNswsK 7oZxPlPfPhDOojQA9nMTOq T5knsHEeQIWfRURuV7xoVh SynU4wuLntTBujWuMoMlTx MFxiIEEuICBQTEVVUkEsIE zOScE7WPNRY4SYK1XDQCQF SVMgRkxVSURccGFyICAgIC GaAV6xBH1RBDOQVJMUPZ1N WHOWPvEMP27NZtWSQWeBLY 6FWNQEH2EQTLfXU4vrGZJx ICAgICAgLSBORUdBVElWRS EMX8PyHLHHOPyGBO6VLEUM TExTXHBsYWluXGYxXGZzMj BcbGFuZzEwMzNcaGljaFxm LMzxWaBkYZNcYMehI1zwOs ZbElAgOYLoYXBLOIXEU80H GB7NQRufETM9e8lvoOVyLT ZdgWVlKhNoFKCdJBVtt0jy ZGVmbGFuZzEwMzNcZnRuYm ctdARhAOWfDcJgq1cge046 vJNas2fuDLKwGoR0lCZsRU GzhXtdzsr5rDxcTzHrYFTf a1rzhiNsIvWlBGXrFHKeLP JhiVGmD168TPAnOPabx3bz n9UnSQSspCFir3H4QGHJUC jnWtLrR556f7pox7gebkKz tMT3NFFmGJT4SVhhmfRhji E7RNfllOMwWiE3MValdsBk GShvwjTnmkMwHyl6OMGmC9 95TGS0rQeyx7arNPO0XRVn GYPyQntxKh9qfCSxW097QQ UsYLEPOMLhvAo0PZGputPg inGzaLZWs530M050z1dsAP SfzvSofVnWahclr5tuH462 XHBhcGVydzEyMjQwXHBhcG XriWB0QFGmFX7keuxyNFoz WVsxKRKczzQ5JJLlaJEkV6 VtLHJeJJ9qvefqPNZ4PXbz MJQtQNZ1BdMeCTYwo0Xgdt f5JbVrgn0gwd55IBU5q5Bs fYpnZEO5KJA9QqKrNa3jgG WnDZZfUA0bXlQmcMFlMGMj vf86sVnvOMuydrVseR5mYg FbIJDeuXCgLCHfOH3aqBTe HJOkzT0jctnoRXUrJjEjms hfFVDhyWlgveOfYr1vdWes YQK4CHbkP3oxdL5kYbW9QZ pyH9cdvK8gJDo0ZFqyrWD9 PAPbvS9aKJ1bqukzx2zoAX lmRMfcXUZqebB3zxB4QKZa dCGzN5YmsL6sEUDxTY6gjj jte0qbDEA2EFikWRTrKQW3 PdFlQWFjx4Xugcs3EyCur9 CfaCPkGDpgA30gd060RDGo isYfM6rgfGGbmcnclSOuzq dwWKyorqG8WNEgQULjAVab XGYxXGZzMjBcbGFuZzEwMz NcaGljaFxmMVxkYmNoXGYx BGdnX8dnXdDlV2DiUNTuUf GrxPWjFQqldWD3YXLxDNVd d26rvOg6SUEqhooea4RiBX NpfWEhtLEghT9nahUwf8vm ZOOrCUQlVSFtY5EkEKV1wC HtMUZspGAjgRW8VE5hfoOz NU1vODHpSdpuuhSwlWFqgq HoIWKpYOtaa0ztNW9bDHNd nXwcoR1cdSY6TWQnd8xghZ ZawYRue1rql9ZrbwBzQBgl LFXlNRnxDSRtYKSoIB2gGZ RlaOLiiyZac7E1TkwoiYHy hzkqTfylqhJ0WDmqulkqLU YuDHltH0grUkNwVCCmcSjr Emwvy8OjYMFvPKQzVwsmoU FyfX0= Final Diagnosis Comment e9ydeQViENAxnRPwBmKjZP (test code = TzMUXhz4anQUJkcJQoZdLb 3884534749) MzNcZnRuYmpcdWMxXGRlZm Hjy5kkx775pMKjq3wuURJb MmW7iETkAGEpuPAiI044s2 nqz7fepiEmtES4SVPkBQL0 YEjfunFzljL2VYtvzBCpLb R0NAhrcdIoMTqguiCxeaPa Obl0OLVqO473VVR3uAkfh7 hlTTK2PTPiQYEzUjWwBi6h qKAbH480JIXpOJPBOMLttU v4KFJqklJrdbHosTPNd087 G953m7igBFJreeIlbXgNyb mgq6oaY754ZVUwvUPwujKe RzLxBHDikKRquDK5AUGsMO 3cqduwLKR2ABgzKDWruvEy DYEizQWhV6U6EpHxgARtN3 UrPRebWMEcbxo7SzBfSh9b bBVovMJ6RCuvb0nph6whmR OfNvj2YKLwDiLcBugfTVsg a5Zou2nxCQTxmc4tNBF1oS FvhCzjn9Z0qGNtEIVmrYHu nzLhUONyPhU8QHhsKM5lmp 16RCMuYMP6eo8xnSHgqJcj lfWbaKKfDGouM1FaUYBoe7 56QAMfW8HxQJJsm7B9xmAk SsDnOKBwhRF9gxR8ESTpAZ z8iGCbspP1zdVpyXCdD4bp uU2iKHrvAR3mjmsii9hzYX P3QPkbLGDfmUA1ngfhCKbo HSPqUuS5kaHasHMhKQTnjJ ntCEqku760NUD8JaVeKHUq g4LyR2ZirKywR55bbHhnK4 1nSPOojLebvL1uqJhafU0l ZjBcZnMyNFxxbFxwbGFpbl xmMFxmczIwXGxhbmcxMDMz CHqlZ7kuStRfQGGxuWeuFB lxi7MlVCFzMWLjMfElR25u ONKfe2alz2SlnXf4DRFyjS 8zqRHriGV7dM5qFVploEuh oZXuVW3rxA6mqfBneUZsGP J4mb1mzGnegvhrQeK7MXi0 fMGrl1S8yCNzTPWaSZVaqT MzlN7uITDxi53agTD5NI03 GOaabLirWL3qaJAeKU1lGd 8ubZRjnRzvGT06TIIaxPru FMafUU76nBWbCNPmOVsoVR J9 Clinical Information Clinical Hx: ?Total (test code = colectomy complicated [id number]) . Requested per consulting surgery team. Gross Description (test q1zhoPTxSCMuqJLvXhWmGJ code = 9612134002) PeDICgp4ovBLZrlRPwGsLp MzNcZnRuYmpcdWMxXGRlZm Qbd7gzj827iLJxt2mmSKAe OpL0vMZkMOAqiXMjM778o5 bsx0ynogBvsXF2IXXkQQX6 KJgszqNwhaA8TOlrvLYgBx S7XFvtopSyWSxpwoPrfxZb Lek6EQAkY958MIV4lEhkq5 ehZSX8SZBuBMOkCrLdFk9b rFBhU553BLIyNCMSFOBowZ m2RNGmooLtswOltSDQk796 K807z8zsUAYhgqJetCnLpo ycv7wyO420NWLlsMVibvLb CmLrTMQcxAMyvHF2MZJxSI 5wyamxHAS7TDrwBTLybqVb XCEbhMNnX0U1YgLarBKdR6 ItUMzeDLFydtq1ZwQyZu9m rILipYB7RXnra0idm7hhlN EiAuh4NFBeWpFkSyqbUCsc q1Imr1ztLQIzgr0mNNA7aO KdgIiqj4P3gYCjYEEkuYOq fnYxCSEmQkN2QTolWG7ltk 08VRWfPQM1cv5zpPPqjVjg keOqhAZqCFodZ3SrPGCvv7 53OPMgR4VgPBZam2B8egCj OnHdYAUjsVV9gfN6JLAiNH z8xQKqtwH8vvNsjRQjY4ud cO6vPDsyVG0ztlosg1ouMN Q6XVzsHYAwxCF0pbvhUYax MGMrYfV1utCpjLMdATGtqF mqJSodf429OPD8SkRxXEKy c6NqT1IkmRauQ57kaRfvJ1 6xIHIeqMmtfJ2euMnugB7q ZjBcZnMyNFxxbFxwbGFpbl xmMFxmczIwXGxhbmcxMDMz OZdmI3tsSrQgOOMqfKohRB nbk9MaMVRnKSOwGwVoOYHp GPUIRQAOIfBqNDnDJyV4DO XQA3VWQ6AIROQJIMMdWmdE IMZxnUHlTVBjS0JqvgXzCP LsBOYuAJxjDQUhHXWaV0Vz h4JtlQCrxJ96LRPydRglQF xwYXIgUHJlcGFyZWQgMiBz tUhpDTDfISNuWQHuQY6wW2 9fQH79PSF1iC0vsCceXJNf dxXtMSZTz83ehe76n9p5OP R1fB3qrVlaQJIvHGYjxzO8 pQ0vMFbpQXR7 Embedded Images (test code = [id number]) [facility] [id number] 13:05:21EXAM: XR CHEST 1 VW HISTORY: post [...] the chest is little different than noted yesterday.[facility] WITH [id number] 11:18:00 Test Item Value Reference Range Interpretation [...] RDW-SD (test code = 47.8 fL 38.5-51.6 08693-4) RDW-CV (test code = 14.7 % 12.1-15.4 788-0) PLT (test code = See_Comment HH [Automated 777-3) message] The system which generated this result transmit dain reference range : 150 - 328 10*3/ ?L. The reference range was not u sed to interpret th is result as normal/abnormal . MPV (test code = 9.9 fL 9.8-13 08224-4) NRBC/100 WBC (test See_Comment [Automat ed code = 6589979339) message] The system which generated this result transmit dain reference range : 0.0 - 10.0 /100 WBCs. The reference range was not used to interpret this result as normal/abnormal . NRBC x10^3 (test code <0.01 See_Comment [Auto mated = [id number]) message] The system which generated this result transmit dain reference range : 10*3/?L. The reference range was not used to interpret this result as normal/abnormal . GRAN MAT (NEUT) % 81.7 % (test code = 770-8) IMM GRAN % (test code 1.10 % = 7865415831) LYMPH % (test code = 9.1 % 736-9) MONO % (test code = 7.3 % 5905-5) EOS % (test code = 0.5 % 713-8) BASO % (test code = 0.3 % 706-2) GRAN MAT x10^3(ANC) 10.91 10*3/uL 1.99-6.95 H (test code = 5284485821) IMM GRAN x10^3 (test 0.15 10*3/uL 0-0.06 H code = 0876423233) LYMPH x10^3 (test code 1.21 10*3/uL 1.09-3.23 = 731-0) MONO x10^3 (test code 0.97 10*3/uL 0.36-1.02 = 742-7) EOS x10^3 (test code = 0.07 10*3/uL 0.06-0.53 711-2) BASO x10^3 (test code 0.04 10*3/uL 0.01-0.09 = 704-7) Lab Interpretation Abnormal (test code = 56570-6) [facility] METABOLIC PANEL (NA, K, CL, CO2, GLUCOSE, BUN, CREATININE, CA)2020-04-17 10:49:00 Test Item Value Reference Range Interpretation Comments NA (test code = 134 mmol/L 135-145 L 9888577669) K (test code = 4.2 mmol/L 3.5-5 3554795279) CL (test code = 103 mmol/L 98-108 8605848760) CO2 TOTAL (test code = 26 mmol/L 23-31 2287419559) AGAP (test code = 2-16 7780578839) BUN (test code = 12 mg/dL 7-23 5847493775) GLUCOSE (test code = 107 mg/dL 70-110 1231659336) CREATININE (test code = 0.74 mg/dL 0.6-1.25 4931534781) CALCIUM (test code = 7.8 mg/dL 8.6-10.6 L 4553189076) eGFR Calculation mL/min/1.73m2 (Non-) (test code = 7534487051) eGFR Calculation mL/min/1.73m2 () (test code = 9800856370) GILBERTO (test code = GILBERTO) Association of [...] tests). Lab Interpretation Abnormal (test code = 46303-3) [facility] Test Item Value Reference Range Interpretation Comments MAGNESIUM (test code = 1522483796) 2.3 mg/dL 1.7-2.4 Lab Interpretation (test code = Normal 95726-8) [facility] 10[facility]00 Test Item Value Reference Range Interpretation Comments PHOSPHORUS (test code = 3976210769) 3.8 mg/dL 2.5-5 Lab Interpretation (test code = Normal 57203-4) [facility] TOTAL BODY [id number] 00:37:00 Test Item Value Reference Range Interpretation Comments LDH BF (test code = 3707 U/L 9882084195) UNSPUN BODY FLUID Light Yellow COLOR (test code = 9219033186) UNSPUN BODY FLUID Clear CLARITY (test code = 7133501678) SPUN BODY FLUID Light Yellow COLOR (test code = 7871855213) SPUN BODY FLUID Clear CLARITY (test code = 6832032047) Sediment (test code The sediment volume is 0.1 = 6485531545) mLs of the total fluid volume of 3mLs and its color is white. GILBERTO (test code = Test developed and GILBERTO) characteristics determined by [facility] Laboratory Services. [facility] CenterXR CHEST 1 [id number] 00:22:53 1. ?Left lower lung zone 2 [...] fortechnique. Bones: No acute osseous abnormalityis seen. [facility], Radiant Results Inft User [...] compared to 817 with a possible small pneumothorax.[facility] CenterBODY FLUID DIRECT [id number] 00:10:00 Test Item Value Reference Range Interpretation Comments BF COLOR Light Yellow (test code = 7176885582) BF WBC Count See_Comment [Automated (test code = message] The sy stem 7066521254) which generated this result transmitted reference range : /?L. The refere nce range was not u sed to interpret th is result as normal/abnormal . BF RBC Count <3000 See_Comment [Automated (test code = message] The sy stem 3531450555) which generated this result transmitted reference range : /?L. The refere nce range was not u sed to interpret th is result as normal/abnormal . GILBERTO (test The reference range code = GILBERTO) and other method performance specifications have not been established for this body fluid. ?The test results must be integrated into the clinical context for interpretation. [facility] CenterB[facility] FLUID MANUAL [id number] 00:10:00 Test Item Value Reference Range Interpretation Comments BF SEGS (test code = 2008163328) 78 % MACROPHAGE (test code = 7404159271) 22 % #CELS CNTD (test code = 7606567894) [facility] CenterAmylase Body [id number] 00:03:00 Test Item Value Reference Range Interpretation Comments AMYLASE BF (test 313 U/L code = 9288718529) UNSPUN BODY FLUID Yellow COLOR (test code = 3873230547) UNSPUN BODY FLUID Clear CLARITY (test code = 7266370818) SPUN BODY FLUID Yellow COLOR (test code = 7752942166) SPUN BODY FLUID Clear CLARITY (test code = 3856227594) Sediment (test code The sediment volume is = 5489871061) <0.1 mLs of the total fluid volume of 1mL and its color is red. GILBERTO (test code = Test developed and GILBERTO) characteristics determined by [facility] Laboratory Services. [facility] CenterGlucose Body [id number] 00:03:00 Test Item Value Reference Range Interpretation Comments GLUCOSE BF (test 57 mg/dL code = 0377413262) UNSPUN BODY FLUID Yellow COLOR (test code = 5098116089) UNSPUN BODY FLUID Clear CLARITY (test code = 7706155957) SPUN BODY FLUID Yellow COLOR (test code = 3201880329) SPUN BODY FLUID Clear CLARITY (test code = 8118443403) Sediment (test code The sediment volume is = 9646186081) <0.1 mLs of the total fluid volume of 1mL and its color is red. GILBERTO (test code = Test developed and GILBERTO) characteristics determined by [facility] Laboratory Services. [facility] CenterTotal Protein Body [id number] 00:03:00 Test Item Value Reference Range Interpretation Comments T.PROT BF (test 3000.0 mg/dL code = 3669976001) UNSPUN BODY FLUID Yellow COLOR (test code = 3747572082) UNSPUN BODY FLUID Clear CLARITY (test code = 9862038067) SPUN BODY FLUID Yellow COLOR (test code = 9081674753) SPUN BODY FLUID Clear CLARITY (test code = 6919195430) Sediment (test code The sediment volume is = 1407285957) <0.1 mLs of the total fluid volume of 1mL and its color is red. GILBERTO (test code = Test developed and GILBERTO) characteristics determined by [facility] Laboratory Services. [facility] CenterPH, Body [id number] 23:56:00 Test Item Value Reference Range Interpretation Comments PH BF (test code = 1415541589) UNSPUN BODY FLUID COLOR Light Yellow (test code = 7809681380) UNSPUN BODY FLUID Clear CLARITY (test code = 8202860246) SPUN BODY FLUID COLOR Light Yellow (test code = 8145251902) SPUN BODY FLUID CLARITY Clear (test code = 8393699574) Sediment (test code = The sediment volume is 6140430417) 0.1 mLs of the total fluid volume of 5.5mLs and its color is white/red. [facility] CenterIR DRAINAGE BY CATHETER PERITONEAL OR [id number] 21:10:26 Successful placement of a 12 Czech drain in the left upper quadrantcollection. Successful placement of a 14 Czech drain in the midline air fluidcollection. Successful placement of a 10 Czech drain in the right lower quadrant fluidcollection. [...] those actually performingthe procedure. Please refer to [facility] regarding sedation time. RADIATION DOSE: 1957 mGy - cm. TECHNIQUE: The risks, benefits and alternatives were discussed and informed consentwas obtained. Prior to beginning the procedure, Candor Protocol was usedto confirm the patient's identity and planned procedure. Maximum sterilebarriers including cap, mask, hand hygiene, sterile gloves, sterile gown,large sterile drape and cutaneous antisepsis were used. The anteriorabdominal wall was sterilely prepped, and draped. The skinoverlying the left upper, right upper, andright lower quadrants wasinfiltrated with lidocaine 2%. The targeted collection in the left upper quadrant was then accessed with q17-slpeg quadrant needle using CT guidance. A 0.035 Amplatz wire wasadvanced through the coaxial needle. The tract was serially dilated to 12French. A pigtail 12 Czech catheter was placed in the left upper quadrantcollection. Approximately, 210 cc of purulent fluid was removed. The air-fluid collection in the mid abdomen was accessed through the rightupper quadrant. An 18 Czech pigtail catheter was placed in this collectionunder CT guidance in a similar fashion to thedrain and left upperquadrant. Approximately, 1250 cc of purulent material were removed. The fluid collection in the right lower quadrant was also accessed in asimilar fashion. A 10 Czech pigtail catheter was placed in this collectionunder [...] aspirated at the time of the procedure. [facility], Radiant Results Inft User - 04/16/2020 4:11 PM CDTEXAMINATION: PERCUTANEOUS ASPIRATIONHISTORY: 50-year-old male with postoperative abdominal fluid collections SEDATION: Moderate sedation was administered under the supervision of atrained nurse specialist who was independent from those actually performingthe procedure. Please refer to [facility] regarding sedation time.RADIATION DOSE: 1957 mGy - cm.TECHNIQUE: The risks, benefits and alternatives were d iscussed and informed consentwas obtained. Prior to beginning the procedure, Candor Protocol was usedto confirm the patient's identity [...] serially dilated to 12French. A pigtail 12 Czech catheter was placed in the left upper quadrantcollection. Approximately, 210 cc of purulent fluid was removed.The air-fluid collection in the mid abdomen was accessed through the rightupper quadrant. An 18 Czech pigtail catheter was placed in this collectionunder CT guidance in a similar fa shion to the drain and left upperquadrant. Approximately, 1250 cc of purulent material were removed.The fluid collection in the right lower quadrant was also accessed in asimilar fashion. A 10 Czech pigtail catheter was placed in this collectionunder [...] left upper quadrantcollection.Successful placement of a 14 Czech drain in the midline air fluidcollection.Successful placement of a 10 Czech drain in the right lower quadrant fluidcollection.Preliminary Report Dictated by Resident: Hayden Murphy the attending radiologist I was present in the room for the entirety ofthe procedure.I, Neris Grier MD., have reviewed this study and agree with the abovereport.[facility] CenterBODY FLUID CULTURE(AEROBIC/ANAEROBIC)2020-04-16 19:45:00 Test Item Value Reference Range Interpretation Comments BODY FLUID CULT 2+ Bacteroides fragillis (test code = 611-4) Gram stain (test Occasional (Rare) code = 664-3) Mononuclear cells [facility] CenterPROTHROMBIN TIME / [id number] 16:38:00 Test Item Value Reference Range Interpretation Comments PROTIME PATIENT (test See_Comment H [Auto mated message] code = 5964-2) The system [employer] generated this result transmitted ref erence range: 10.1 - 1 2.6 Seconds. The reference range was not used to int erpret this result as normal/abnormal . INR (test code = 6301-6) Nor mal INR <1.1; Warfarin Therap eutic range 2.0 to 3. 0 or 2.5 to 3.5, dep ending upon the indica tions. Lab Interpretation (test Abnormal code = 85068-8) [facility] CenterCT ABDOMEN PELVIS W [id number] 13:40:08Impression: 1. ?Interval placement of 4 percutaneous [...] and oral contrast seen up to the ostomy.[facility] CenterBASI METABOLIC PANEL (NA, K, CL, CO2, GLUCOSE, BUN, CREATININE, CA)2020-04-16 10:51:00 Test Item Value Reference Range Interpretation Comments NA (test code = 132 mmol/L 135-145 L 1758579194) K (test code = 4.1 mmol/L 3.5-5 2717324720) CL (test code = 103 mmol/L 98-108 7636189713) CO2 TOTAL (test code = 24 mmol/L 23-31 1042020271) AGAP (test code = 2-16 0352825703) BUN (test code = 13 mg/dL 7-23 1357521419) GLUCOSE (test code = 132 mg/dL 70-110 H 5515944385) CREATININE (test code = 0.77 mg/dL 0.6-1.25 0303702451) CALCIUM (test code = 7.4 mg/dL 8.6-10.6 L 7092293343) eGFR Calculation mL/min/1.73m2 (Non-) (test code = 3140509509) eGFR Calculation mL/min/1.73m2 () (test code = 2418139800) GILBERTO (test code = GILBERTO) Association of [...] tests). Lab Interpretation Abnormal (test code = 68773-6) [facility] CenterMAGNESIUM2020-08-24 10:51:00 Test Item Value Reference Range Interpretation Comments MAGNESIUM (test code = 7880754125) 2.2 mg/dL 1.7-2.4 Lab Interpretation (test code = Normal 77110-7) [facility] CenterPHOSPHORUS2020-08-24 10:51:00 Test Item Value Reference Range Interpretation Comments PHOSPHORUS (test code = 0192605317) 3.1 mg/dL 2.5-5 Lab Interpretation (test code = Normal 50882-0) [facility] CenterCBC WITH [id number] 10:37:00 Test Item Value Reference Range Interpretation [...] RDW-SD (test code = 47.4 fL 38.5-51.6 16993-9) RDW-CV (test code = 14.7 % 12.1-15.4 788-0) PLT (test code = See_Comment H [Automated 777-3) message] The system which generated this result transmit dain reference range : 150 - 328 10*3/ ?L. The reference range was not u sed to interpret th is result as normal/abnormal . MPV (test code = 10.1 fL 9.8-13 04470-6) NRBC/100 WBC (test See_Comment [Automat ed code = 3395288219) message] The system which generated this result transmit dain reference range : 0.0 - 10.0 /100 WBCs. The reference range was not used to interpret this result as normal/abnormal . NRBC x10^3 (test code <0.01 See_Comment [Auto mated = 9111625398) message] The system which generated this result transmit dain reference range : 10*3/?L. The reference range was not used to interpret this result as normal/abnormal . GRAN MAT (NEUT) % 83.0 % (test code = 770-8) IMM GRAN % (test code 1.50 % = 8684449367) LYMPH % (test code = 7.6 % 736-9) MONO % (test code = 7.3 % 5905-5) EOS % (test code = 0.3 % 713-8) BASO % (test code = 0.3 % 706-2) GRAN MAT x10^3(ANC) 11.53 10*3/uL 1.99-6.95 H (test code = 5192106578) IMM GRAN x10^3 (test 0.21 10*3/uL 0-0.06 H code = 0935324522) LYMPH x10^3 (test code 1.05 10*3/uL 1.09-3.23 L = 731-0) MONO x10^3 (test code 1.01 10*3/uL 0.36-1.02 = 742-7) EOS x10^3 (test code = 0.04 10*3/uL 0.06-0.53 L 711-2) BASO x10^3 (test code 0.04 10*3/uL 0.01-0.09 = 704-7) Lab Interpretation Abnormal (test code = 54247-7) [facility] METABOLIC PANEL (NA, K, CL, CO2, GLUCOSE, BUN, CREATININE, CA)2020-04-15 11:01:00 Test Item Value Reference Range Interpretation Comments NA (test code = 132 mmol/L 135-145 L 4472136826) K (test code = 4.7 mmol/L 3.5-5 7563329183) CL (test code = 103 mmol/L 98-108 0472225197) CO2 TOTAL (test code = 22 mmol/L 23-31 L 3060913649) AGAP (test code = 2-16 8870813469) BUN (test code = 14 mg/dL 7-23 2623605675) GLUCOSE (test code = 114 mg/dL 70-110 H 0225052398) CREATININE (test code = 0.74 mg/dL 0.6-1.25 7172697422) CALCIUM (test code = 7.9 mg/dL 8.6-10.6 L 3446245015) eGFR Calculation mL/min/1.73m2 (Non-) (test code = 4146129062) eGFR Calculation mL/min/1.73m2 () (test code = 3640263887) GILBERTO (test code = GILBERTO) Association of [...] tests). Lab Interpretation Abnormal (test code = 57824-0) [facility] Test Item Value Reference Range Interpretation Comments MAGNESIUM (test code = 0300047715) 2.1 mg/dL 1.7-2.4 Lab Interpretation (test code = Normal 63524-0) [facility]PH[facility]2020-[facility]-23 11:01:00 Test Item Value Reference Range Interpretation Comments PHOSPHORUS (test code = 9498225058) 3.4 mg/dL 2.5-5 Lab Interpretation (test code = Normal 76016-5) [facility] CenterCB WITH [id number] 10:46:00 Test Item Value Reference Range Interpretation [...] RDW-SD (test code = 47.7 fL 38.5-51.6 13340-6) RDW-CV (test code = 15.0 % 12.1-15.4 788-0) PLT (test code = See_Comment H [Automated 777-3) message] The system which generated this result transmit dain reference range : 150 - 328 10*3/ ?L. The reference range was not u sed to interpret th is result as normal/abnormal . MPV (test code = 10.4 fL 9.8-13 65509-8) NRBC/100 WBC (test See_Comment [Automat ed code = 2033713156) message] The system which generated this result transmit dain reference range : 0.0 - 10.0 /100 WBCs. The reference range was not used to interpret this result as normal/abnormal . NRBC x10^3 (test code <0.01 See_Comment [Auto mated = 5446705400) message] The system which generated this result transmit dain reference range : 10*3/?L. The reference range was not used to interpret this result as normal/abnormal . GRAN MAT (NEUT) % 85.0 % (test code = 770-8) IMM GRAN % (test code 1.10 % = 6628010797) LYMPH % (test code = 7.2 % 736-9) MONO % (test code = 6.4 % 5905-5) EOS % (test code = 0.1 % 713-8) BASO % (test code = 0.2 % 706-2) GRAN MAT x10^3(ANC) 14.87 10*3/uL 1.99-6.95 H (test code = 3563181690) IMM GRAN x10^3 (test 0.20 10*3/uL 0-0.06 H code = 5163045570) LYMPH x10^3 (test code 1.25 10*3/uL 1.09-3.23 = 731-0) MONO x10^3 (test code 1.11 10*3/uL 0.36-1.02 H = 742-7) EOS x10^3 (test code = <0.03 0.06-0.53 L 711-2) BASO x10^3 (test code 0.03 10*3/uL 0.01-0.09 = 704-7) Lab Interpretation Abnormal (test code = 13407-1) [facility] METABOLIC PANEL (NA, K, CL, CO2, GLUCOSE, BUN, CREATININE, CA)2020-04-14 12:15:00 Test Item Value Reference Range Interpretation Comments NA (test code = 134 mmol/L 135-145 L 6261727207) K (test code = 4.9 mmol/L 3.5-5 6375900686) CL (test code = 105 mmol/L 98-108 8072334865) CO2 TOTAL (test code = 23 mmol/L 23-31 5160979161) AGAP (test code = 2-16 8490482468) BUN (test code = 16 mg/dL 7-23 5717125632) GLUCOSE (test code = 102 mg/dL 70-110 8324652189) CREATININE (test code = 0.82 mg/dL 0.6-1.25 1568930312) CALCIUM (test code = 7.9 mg/dL 8.6-10.6 L 8488479871) eGFR Calculation mL/min/1.73m2 (Non-) (test code = 1556492240) eGFR Calculation mL/min/1.73m2 () (test code = 7193524089) GILBERTO (test code = GILBERTO) Association of [...] tests). Lab Interpretation Abnormal (test code = 07746-1) [facility] 12:15[facility]00 Test Item Value Reference Range Interpretation Comments MAGNESIUM (test code = 2378518532) 2.1 mg/dL 1.7-2.4 Lab Interpretation (test code = Normal 64828-8) [facility]2020-[facility] 12:15:00 Test Item Value Reference Range Interpretation Comments PHOSPHORUS (test code = 3977783777) 4.2 mg/dL 2.5-5 Lab Interpretation (test code = Normal 27437-4) [facility] CenterCBC WITH [id number] 11:49:00 Test Item Value Reference Range Interpretation [...] RDW-SD (test code = 48.1 fL 38.5-51.6 33648-3) RDW-CV (test code = 15.1 % 12.1-15.4 788-0) PLT (test code = See_Comment H [Automated 777-3) message] The system which generated this result transmit dain reference range : 150 - 328 10*3/ ?L. The reference range was not u sed to interpret th is result as normal/abnormal . MPV (test code = 10.7 fL 9.8-13 62585-9) NRBC/100 WBC (test See_Comment [Automat ed code = 1542274733) message] The system which generated this result transmit dain reference range : 0.0 - 10.0 /100 WBCs. The reference range was not used to interpret this result as normal/abnormal . NRBC x10^3 (test code <0.01 See_Comment [Auto mated = 0846334619) message] The system which generated this result transmit dain reference range : 10*3/?L. The reference range was not used to interpret this result as normal/abnormal . GRAN MAT (NEUT) % 84.4 % (test code = 770-8) IMM GRAN % (test code 1.10 % = 8231897927) LYMPH % (test code = 7.4 % 736-9) MONO % (test code = 6.8 % 5905-5) EOS % (test code = 0.1 % 713-8) BASO % (test code = 0.2 % 706-2) GRAN MAT x10^3(ANC) 13.45 10*3/uL 1.99-6.95 H (test code = 2033372481) IMM GRAN x10^3 (test 0.18 10*3/uL 0-0.06 H code = 6064522159) LYMPH x10^3 (test code 1.18 10*3/uL 1.09-3.23 = 731-0) MONO x10^3 (test code 1.09 10*3/uL 0.36-1.02 H = 742-7) EOS x10^3 (test code = <0.03 0.06-0.53 L 711-2) BASO x10^3 (test code 0.03 10*3/uL 0.01-0.09 = 704-7) Lab Interpretation Abnormal (test code = 45870-3) [facility] TOTAL BODY [id number] 01:27:00 Test Item Value Reference Range Interpretation Comments LDH BF (test code = >6450 U/L 6143684286) UNSPUN BODY FLUID Yellow COLOR (test code = 3014638240) UNSPUN BODY FLUID Turbid CLARITY (test code = 4521425169) SPUN BODY FLUID Yellow COLOR (test code = 1740889751) SPUN BODY FLUID Clear CLARITY (test code = 3127920793) Sediment (test code The sediment volume is 0.1 = 4480688359) mLs of the total fluid volume of 5mLs and its color is Red/White. GILBERTO (test code = Test developed and GILBERTO) characteristics determined by [facility] Laboratory Services. [facility] (NA, K, CL, CO2, GLUCOSE, BUN, CREATININE, CA)2020-04-14 00:15:00 Test Item Value Reference Range Interpretation Comments NA (test code = 132 mmol/L 135-145 L 9850815275) K (test code = 5.3 mmol/L 3.5-5 H 8953295830) CL (test code = 105 mmol/L 98-108 2909874525) CO2 TOTAL (test code = 20 mmol/L 23-31 L 6949601454) AGAP (test code = 2-16 2489570925) BUN (test code = 14 mg/dL 7-23 1252047845) GLUCOSE (test code = 280 mg/dL 70-110 H 5352625292) CREATININE (test code = 0.75 mg/dL 0.6-1.25 4086462246) CALCIUM (test code = 7.4 mg/dL 8.6-10.6 L 1544646481) eGFR Calculation mL/min/1.73m2 (Non-) (test code = 6336519579) eGFR Calculation mL/min/1.73m2 () (test code = 1730694811) GILBERTO (test code = GILBERTO) Association of [...] tests). Lab Interpretation Abnormal (test code = 93780-6) [facility] WITHOUT [id number] 00:01:00 Test Item Value Reference Range Interpretation Comments WBC (test code = 6690-2) See_Comment H [A utomated message] The system [employer] generated this result transmit dain reference range : 4.20 - 10.70 10*3/?L. The reference range was not used to interpret this result as normal/abnormal . RBC (test code = 789-8) See_Comment L [Au tomated message] The system [employer] generated this result transmit dain reference [...] See_Comment H [Au tomated message] The system [employer] generated this result transmit dain reference range : 150 - 328 10*3/?L. The reference range was not used to interpret this result as normal/abnormal . MPV (test code = 10.2 fL 9.8-13 92722-5) RDW-CV (test code = 15.3 % 12.1-15.4 788-0) RDW-SD (test code = 49.1 fL 38.5-51.6 23397-6) NRBC x10^3 (test code = <0.01 See_Comment [Au tomated message] 4655611167) The system [employer] generated this result transmit dain reference range : 10*3/?L. The reference range was not used to interpret this result as normal/abnormal . NRBC/100 WBC (test code See_Comment [Au tomated message] = 0014230563) The system [employer] generated this result transmit dain reference range : 0.0 - 10.0 /100 WBC s. The reference r meredith was not used to interpret this result as normal/abnormal . IPF % (test code = 0422172595) Lab Interpretation (test Abnormal code = 89207-9) [facility] CenterBODY FLUID DIRECT [id number] 23:40:00 Test Item Value Reference Range Interpretation Comments BF COLOR Yellow (test code = 5221773784) BF WBC Count See_Comment [Automated (test code = message] The sy stem 0563559950) which generated this result transmitted reference range : /?L. The refere nce range was not u sed to interpret th is result as normal/abnormal . BF RBC Count <3000 See_Comment [Automated (test code = message] The sy stem 2264871996) which generated this result transmitted reference range : /?L. The refere nce range was not u sed to interpret th is result as normal/abnormal . GILBERTO (test The reference range code = GILBERTO) and other method performance specifications have not been established for this body fluid. ?The test results must be integrated into the clinical context for interpretation. [facility] CenterB[facility] FLUID MANUAL [id number] 23:40:00 Test Item Value Reference Range Interpretation Comments BF SEGS (test code 99 % = 0990603171) BF LYMPHS (test 1 % code = 6520329719) #CELS CNTD (test code = 8956006759) GILBERTO (test code = Possible intracellular GILBERTO) bacteria. [facility] CenterGLUCOSE BODY [id number] 23:17:00 Test Item Value Reference Range Interpretation Comments GLUCOSE BF (test <20 mg/dL code = 1702865956) UNSPUN BODY FLUID Yellow COLOR (test code = 1545269363) UNSPUN BODY FLUID Turbid CLARITY (test code = 1252097208) SPUN BODY FLUID Yellow COLOR (test code = 9525014635) SPUN BODY FLUID Clear CLARITY (test code = 5595144714) Sediment (test code The sediment volume is 0.1 = 9336336519) mLs of the total fluid volume of 5mLs and its color is Red/White. GILBERTO (test code = Test developed and GILBERTO) characteristics determined by [facility] Laboratory Services. [facility] CenterT.PROTEIN BODY [id number] 22:52:00 Test Item Value Reference Range Interpretation Comments T.PROT BF (test 3000.0 mg/dL code = 9881680668) UNSPUN BODY FLUID Yellow COLOR (test code = 4926903857) UNSPUN BODY FLUID Turbid CLARITY (test code = 0030254409) SPUN BODY FLUID Yellow COLOR (test code = 1983174058) SPUN BODY FLUID Clear CLARITY (test code = 7906928110) Sediment (test code The sediment volume is 0.1 = 9601833560) mLs of the total fluid volume of 5mLs and its color is Red/White. GILBERTO (test code = Test developed and GILBERTO) characteristics determined by [facility] Laboratory Services. [facility] CenterURINE [id number] 19:44:00 Test Item Value Reference Range Interpretation Comments URINE CULTURE (test No aerobic growth (< code = 630-4) 1000 CFU/mL) [facility] CenterGRAM NEGATIVE BLOOD PATHOGENS DNA [id number] 13:23:00 Test Item Value Reference Range Interpretation Comments Enterobacter species Positive Negative A (test code = 16113-5) GILBERTO (test code = GILBERTO) See blood culture result for additional information. ?Testing included eight identification and six resistance marker targets. Lab Interpretation Abnormal (test code = 28022-1) [facility] CenterCBC WITH [id number] 12:43:00 Test Item Value Reference Range Interpretation [...] RDW-SD (test code = 49.8 fL 38.5-51.6 26801-0) RDW-CV (test code = 15.3 % 12.1-15.4 788-0) PLT (test code = See_Comment H [Automated 777-3) message] The system which generated this result transmit dain reference range : 150 - 328 10*3/ ?L. The reference range was not u sed to interpret th is result as normal/abnormal . MPV (test code = 10.7 fL 9.8-13 39018-4) NRBC/100 WBC (test See_Comment [Automat ed code = 0208544676) message] The system which generated this result transmit dain reference range : 0.0 - 10.0 /100 WBCs. The reference range was not used to interpret this result as normal/abnormal . NRBC x10^3 (test code <0.01 See_Comment [Auto mated = 9909610438) message] The system which generated this result transmit dain reference range : 10*3/?L. The reference range was not used to interpret this result as normal/abnormal . GRAN MAT (NEUT) % 81.3 % (test code = 770-8) IMM GRAN % (test code 1.40 % = 7040406053) LYMPH % (test code = 8.0 % 736-9) MONO % (test code = 8.9 % 5905-5) EOS % (test code = 0.2 % 713-8) BASO % (test code = 0.2 % 706-2) GRAN MAT x10^3(ANC) 10.74 10*3/uL 1.99-6.95 H (test code = 8065858221) IMM GRAN x10^3 (test 0.18 10*3/uL 0-0.06 H code = 7341554012) LYMPH x10^3 (test code 1.06 10*3/uL 1.09-3.23 L = 731-0) MONO x10^3 (test code 1.17 10*3/uL 0.36-1.02 H = 742-7) EOS x10^3 (test code = <0.03 0.06-0.53 L 711-2) BASO x10^3 (test code <0.03 0.01-0.09 = 704-7) Lab Interpretation Abnormal (test code = 12918-1) [facility] METABOLIC PANEL (NA, K, CL, CO2, GLUCOSE, BUN, CREATININE, CA)2020-04-13 11:57:00 Test Item Value Reference Range Interpretation Comments NA (test code = 134 mmol/L 135-145 L 9406924409) K (test code = 4.6 mmol/L 3.5-5 3088922471) CL (test code = 106 mmol/L 98-108 1848407056) CO2 TOTAL (test code = 23 mmol/L 23-31 7085861533) AGAP (test code = 2-16 7750490062) BUN (test code = 14 mg/dL 7-23 9124228512) GLUCOSE (test code = 106 mg/dL 70-110 7028366449) CREATININE (test code = 0.84 mg/dL 0.6-1.25 6125423714) CALCIUM (test code = 7.7 mg/dL 8.6-10.6 L 1716742701) eGFR Calculation mL/min/1.73m2 (Non-) (test code = 9933178738) eGFR Calculation mL/min/1.73m2 () (test code = 8901951289) GILBERTO (test code = GILBERTO) Association of [...] tests). Lab Interpretation Abnormal (test code = 14187-5) [facility] Test Item Value Reference Range Interpretation Comments MAGNESIUM (test code = 0009380726) 2.1 mg/dL 1.7-2.4 Lab Interpretation (test code = Normal 17912-8) [facility] 11[facility]57:00 Test Item Value Reference Range Interpretation Comments PHOSPHORUS (test code = 8247817637) 3.4 mg/dL 2.5-5 Lab Interpretation (test code = Normal 96844-5) [facility] [id number] 00:22:08 1. ?Multiple intraperitoneal collections as detailed [...] this study and agree with the abovereport. [facility] 23:20[facility]00 Test Item Value Reference Range Interpretation Comments APPEARANCE (test code = Clear Clear 7981443001) COLOR (test code = Yellow Yellow 6030584085) PH (test code = 4.8-8.0 9394602467) SP GRAVITY (test code = 1.003-1.030 1291271147) GLU U QUAL (test code = Normal Normal 8035496599) BLOOD (test code = Negative Negative 7277059973) KETONES (test code = Negative Negative 7817978922) PROTEIN (test code = 30 mg/dL Negative A 2887-8) UROBILIN (test code = Normal Normal 6074399834) BILIRUBIN (test code = Negative Negative 9111612223) NITRITE (test code = Negative Negative 7013699843) LEUK ROGER (test code = Negative Negative 2071742146) RBC/HPF (test code = See_Comment [Autom ated message] 2317159313) The system [employer] generated this result transmitted ref erence range: 0 - 3 HP F. The reference range was not used to int erpret this result as normal/abnormal . WBC/HPF (test code = <1 See_Comment [Autom ated message] 4005242929) The system [employer] generated this result transmitted ref erence range: 0 - 5 HP F. The reference range was not used to int erpret this result as normal/abnormal . BACTERIA (test code = Negative Negative 5400154377) MUCOUS (test code = Slight Negative LPF A 4354198517) SQ EPITH (test code = See_Comment [Auto mated message] 6784719843) The system [employer] generated this result transmitted ref erence range: <=2 HPF. The reference range was not used to int erpret this result as normal/abnormal . Lab Interpretation (test Abnormal code = 87739-7) [facility] WITH [id number] 12:08:00 Test Item Value Reference Range Interpretation [...] RDW-SD (test code = 48.9 fL 38.5-51.6 03488-9) RDW-CV (test code = 15.4 % 12.1-15.4 788-0) PLT (test code = See_Comment [Automated 777-3) message] The sy stem which generated this result transmitted reference range : 150 - 328 10*3/ ?L. The reference r meredith was not used to interpret this result as normal/abnormal . MPV (test code = 11.2 fL 9.8-13 27871-2) NRBC/100 WBC (test See_Comment [Automat ed code = 9426665928) message] The system which generated this result transmitted reference range : 0.0 - 10.0 /100 WBCs. The refer ence range was not u sed to interpret th is result as normal/abnormal . NRBC x10^3 (test code <0.01 See_Comment [Auto mated = 0678537410) message] The s ystem which generated this result transmitted reference range : 10*3/?L. The reference range was not used to interpret this result as normal/abnormal . GRAN MAT (NEUT) % 79.9 % (test code = 770-8) IMM GRAN % (test code 1.30 % = 3891784239) LYMPH % (test code = 7.4 % 736-9) MONO % (test code = 11.0 % 5905-5) EOS % (test code = 0.2 % 713-8) BASO % (test code = 0.2 % 706-2) GRAN MAT x10^3(ANC) 9.56 10*3/uL 1.99-6.95 H (test code = 1920862277) IMM GRAN x10^3 (test 0.15 10*3/uL 0-0.06 H code = 6993859049) LYMPH x10^3 (test code 0.89 10*3/uL 1.09-3.23 L = 731-0) MONO x10^3 (test code 1.32 10*3/uL 0.36-1.02 H = 742-7) EOS x10^3 (test code = <0.03 0.06-0.53 L 711-2) BASO x10^3 (test code <0.03 0.01-0.09 = 704-7) Lab Interpretation Abnormal (test code = 64946-1) [facility] METABOLIC PANEL (NA, K, CL, CO2, GLUCOSE, BUN, CREATININE, CA)2020-04-12 10:43:00 Test Item Value Reference Range Interpretation Comments NA (test code = 133 mmol/L 135-145 L 0391346748) K (test code = 4.3 mmol/L 3.5-5 8946716642) CL (test code = 104 mmol/L 98-108 5909610128) CO2 TOTAL (test code = 22 mmol/L 23-31 L 9083184343) AGAP (test code = 2-16 0057507171) BUN (test code = 20 mg/dL 7-23 3002734520) GLUCOSE (test code = 108 mg/dL 70-110 9313645087) CREATININE (test code = 0.77 mg/dL 0.6-1.25 4996769534) CALCIUM (test code = 8.1 mg/dL 8.6-10.6 L 0360593772) eGFR Calculation mL/min/1.73m2 (Non-) (test code = 4661645781) eGFR Calculation mL/min/1.73m2 () (test code = 9661544646) GILBERTO (test code = GILBERTO) Association of [...] tests). Lab Interpretation Abnormal (test code = 58951-4) [facility] 10:43:00 Test Item Value Reference Range Interpretation Comments MAGNESIUM (test code = 0478399300) 2.0 mg/dL 1.7-2.4 Lab Interpretation (test code = Normal 28768-0) [facility] 10[facility]43:00 Test Item Value Reference Range Interpretation Comments PHOSPHORUS (test code = 9354702009) 4.3 mg/dL 2.5-5 Lab Interpretation (test code = Normal 64636-2) [facility] CULTURE [id number] 04:01:00 Test Item Value Reference Range Interpretation Comments Blood Culture-Aerobic No organisms No growth Previo us (test code = 26755-2) isolated prelim inary verified result was Culture [...] Culture-Anaerobic isolated preliminar y (test code = 98305-6) verifi ed result was Culture In Progress [...] CDT Lab Interpretation Normal (test code = 24137-8) [facility] CULTURE [id number] 04:01:00 Test Item Value Reference Range Interpretation Comments Blood Culture-Aerobic No organisms No growth Previo us (test code = 44371-2) isolated prelim inary verified result was Culture [...] Culture-Anaerobic isolated preliminar y (test code = 06540-0) verifi ed result was Culture In Progress [...] CDT Lab Interpretation Normal (test code = 39174-4) [facility] METABOLIC PANEL (NA, K, CL, CO2, GLUCOSE, BUN, CREATININE, CA)2020-04-11 10:13:00 Test Item Value Reference Range Interpretation Comments NA (test code = 138 mmol/L 135-145 6851742591) K (test code = 3.9 mmol/L 3.5-5 2440128210) CL (test code = 106 mmol/L 98-108 2176497708) CO2 TOTAL (test code = 27 mmol/L 23-31 1717990670) AGAP (test code = 2-16 3026798383) BUN (test code = 24 mg/dL 7-23 H 3553381109) GLUCOSE (test code = 97 mg/dL 70-110 0555591767) CREATININE (test code = 0.63 mg/dL 0.6-1.25 4239602575) CALCIUM (test code = 8.1 mg/dL 8.6-10.6 L 6365169520) eGFR Calculation mL/min/1.73m2 (Non-) (test code = 7813408987) eGFR Calculation mL/min/1.73m2 () (test code = 7638187409) GILBERTO (test code = GILBERTO) Association of [...] tests). Lab Interpretation Abnormal (test code = 59119-8) [facility] 10:13:00 Test Item Value Reference Range Interpretation Comments MAGNESIUM (test code = 5529783359) 1.8 mg/dL 1.7-2.4 Lab Interpretation (test code = Normal 94808-0) [facility] 10:13:00 Test Item Value Reference Range Interpretation Comments PHOSPHORUS (test code = 9810211650) 3.6 mg/dL 2.5-5 Lab Interpretation (test code = Normal 22792-9) [facility] [id number] 10:06:00 Test Item Value Reference Range Interpretation Comments WBC (test code = See_Comment [Automated 7838-2) message] The sy stem which generated this [...] RDW-SD (test code = 48.9 fL 38.5-51.6 13566-8) RDW-CV (test code = 15.3 % 12.1-15.4 788-0) PLT (test code = See_Comment [Automated 777-3) message] The sy stem which generated this result transmitted reference range : 150 - 328 10*3/ ?L. The reference r meredith was not used to interpret this result as normal/abnormal . MPV (test code = 11.7 fL 9.8-13 45189-7) NRBC/100 WBC (test See_Comment [Automat ed code = 9352589717) message] The system which generated this result transmitted reference range : 0.0 - 10.0 /100 WBCs. The refer ence range was not u sed to interpret th is result as normal/abnormal . NRBC x10^3 (test code <0.01 See_Comment [Auto mated = 6247734341) message] The s ystem which generated this result transmitted reference range : 10*3/?L. The reference range was not used to interpret this result as normal/abnormal . GRAN MAT (NEUT) % 75.6 % (test code = 770-8) IMM GRAN % (test code 1.10 % = 4787493625) LYMPH % (test code = 10.5 % 736-9) MONO % (test code = 11.0 % 5905-5) EOS % (test code = 1.5 % 713-8) BASO % (test code = 0.3 % 706-2) GRAN MAT x10^3(ANC) 5.56 10*3/uL 1.99-6.95 (test code = 7773739205) IMM GRAN x10^3 (test 0.08 10*3/uL 0-0.06 H code = 9319762298) LYMPH x10^3 (test code 0.77 10*3/uL 1.09-3.23 L = 731-0) MONO x10^3 (test code 0.81 10*3/uL 0.36-1.02 = 742-7) EOS x10^3 (test code = 0.11 10*3/uL 0.06-0.53 711-2) BASO x10^3 (test code <0.03 0.01-0.09 = 704-7) TOXIC CHANGES (test Present A code = 803-7) Lab Interpretation Abnormal (test code = 75703-1) [facility] [id number] 22:00:00 Test Item Value Reference Range Interpretation Comments Case Report (test code Surgical Pathology ? ? = 0572636070) ?Case: [id number] ? Authorizing Provider: ?Juventino Mccabe MD ? Collected: ? 04/06/2020 1012 ?Ordering Location: ? ? [facility] OR ? Received: ?04/06/2020 1146 ? Department ? Pathologist: ? Shaneka Douglas MD ? Specimen: ? ?SOFT TISSUE, OTHER, ileo rectal anastamosis ? Final Diagnosis (test z3myrVQrJXSru3ejVALkzJ code = 7033516406) FuZzEwMzNcZnRuYmpcdWMx DLupucKaGPozd1DlY5HmLv AwMFxhbnNpXGRlZmxhbmcx HGBkHOR6rpTbWQXdGOngLP PdFMmxPw8pjTLvpXtcTbHb OAFfw4nxkaVEnsbtpLe5d6 zzJLKbRxD4gRRsSFajF8nd aoNxzYJjBIMfDSd0mZ28BG ZtcC8zrDBsNShmavRrVpB8 UMwoMUIuXjV5GSNraKVuYS CpI6dvFWUzYUkwJOCwHVqt kQSaXSI0oSmmq5T6xCNvzH CyhYeeMwCsRmNvZWCFd5Mu BVm0wJpdU6DbXDNrDoC0iI QgUGFyYWdyYXBoIEZvbnQ7 oM56RKvosrK3gVHnn0Ais2 8he252wO0fiQJdGCO0IVNq HUVbuZKoDMSiYJK7QANruB AyN7iiOMrpOJ2iotilXPC3 MFxtYXJndDcyMFxtYXJnYj PzkETjQXFimOkbHBcoz789 JFW7LjGqAQ5wU9Ksi8G2oP 9maXRcZGVmdGFiNzIwXGZv qx5kvLQhUQvnk7TxKWT2pb V2mWCjbPHtUGOyHL00Vdlg l3LqFgseJBT3TRGzgsMaw8 Ctq6okWuPawyGcF9cfL1Vp ZHJoZWFkXHBnYnJkcmZvb3 Rox4KheAMkbXb2d1vzCPRb KYSpzZuqj5ubUDZ3HUQwO4 O6zWVyb9bmTFmqHRAzsIN3 wiWbLDQpaWQhD9CpfF7gJI ysVG5upeo6c6egJpTzPE5u aamuh0ksCNljGJWyLJH4Rp LbFTQat3IkddtxCmIgh4Gj yWOsWRyaS60sa485LTJimp BgL9hhiRMmnehyhIXtpaqt GWykhuL8AXUyFZRrPGkdFG YxXGZzMjBcbGFuZzEwMzNc aGljaFxmMVxkYmNoXGYxXG jyS1kiBeBbTeNuLXorOQJc UK2sP24KE93fSOhFOY8xVr FLAMDRYYILOVLXV84XY2eT XUDDBJOiBDVTD53FOsXHRW HWMQKIQ0CPY416ELNnnkVo KGAyXZ9dBcJFTPCIIJBZUX RNZROIQWHBZCTTKLMnA8gU OZHKAuPUH93RBdOIARrOBl zPTW5MFMuXNcffJNrJVDTR ZMsIXivzN6VJA9JTOPpWNJ FORFxwYXIgICAgICAgICBQ OIAWFX4MIBCVX5jyIMDmRE FhHQEoQHKZU3VUUTaPTpNE OBCAAZ5TEKFUPFLEBTSDOL VccGFyXHBhclxwbGFpblxm MVxmczIyXGxhbmcxMDMzXG nlF2fsFdCaBLSitIiwLPfu e6KwHBVpRFHkJgowlwQnHV DrA9mhpPirFErgENY6SL4p UV8BQ6rXHZI5IgS2YgBhUt McTAW9DzAqSU1xqIyaqG0a IaFuOsSyZGuyHQ1gFRCoN3 tskZAaIKXoLRTgT6dfGbVj pQ9azUpaMIxejhTjRFXqxG DcAPQcfr05RHR7HeSll3V2 MINqYpPnBQZwHM2xpSmkEW VfBK9pYHLwX2exkK8vmhf6 CcPtIKPwDsO7LSRkpdG3Kl z0ISZiIYwdn5xyx9SiE6Ye nGGggXn7h4agIVByGmM3wN ZqZEejD7ofeeDsqNPzQLXd NKp6aMltCkPlYQRhn0ofgh BcZmNoYXJzZXQwIENhbGli uvt3mI48SXRbqI5xlSWwFJ hofpCxZmX8OFqgJTJiRpX2 DTOoaJQjJVHeB2leCWMaMV ktGXLvASbzhNUnHAW5tDlx l6T7mPOsrFYtpXhyAgWiCp UuPOUUa6UwCGo4aLdhA0Bg CAWuQhD1mTMoDUAtNFdtMC InOMDvosQ1yR26RQfdxiR6 vKGlg5Ygu70yd784kY8tzW RuHTF2XXOfOZLykDPaNWLi SGT7GZOtyRIsT5tlNVArBQ 8njqnbPNmrPCjvWLTdaCL7 FRCwdMKgN4JtTIQnJGvxFP Oykjh8VzTlGi8viFXdxBac RPhtc4tpd0szqEHhBdr6ZB NtUkFdYeuvORafv0Wyo7az YOXpxe0oJTT2gOMjpUlgm2 Q9mNTuFMOsuSIewoYeUTZb ZcX2THenVH5xfe95YAMzME F6bd7qpBEfjTjjdnFxiOKq FKybJ5KoQFSty336BJFfN9 GuGMKrk7O8awEtQlLmSGNi fSB7hpI7FLStUTf6eJHznf A6xeJvwQTaT2pibA3sJJUw JQ2azbrjn6iqRXryUJsfOF HjlRK2fyO3LTNgwHGjM3Nn hU6qMUSrEMuqPOTmvgg2Ql XxQr1egVJdwCceVSriWvqi YWdlXHBnbmNvbnRccGduZG VjXHBsYWluXHBsYWluXGYw CNYiLjRgoCbrsUognG3mCy OkPhRtJTiqLJ3aRMVvH9jo aEHlCDFjRATwA6qtUpBetX 9jaFxmMVxjZjJcZnMyMFxw YXIgSSBoYXZlIHBlcnNvbm IorEgaqeQ0cDO2EMMyKQna OICsPTJbyUCvyy2vuNbmUF CdFN2eXEMuceEuLVpzaTsw CPsuJDO7BPCwsSDreHZxyU FkZSBieSByZXNpZGVudHMs GQMwcGsvw9Dzc4AfqFE7wR 6kc2ruk3CeQXHrtOF9JI92 xqF6vH2fJUNtIN9zZJVqFB 5fuSGzrMEcVQLtr47iwYfx cyByZXBvcnQuXHBsYWluXG YyXGZzMjhcbGFuZzEwMzNc aGljaFxmMlxkYmNoXGYyXG nxO4noOqSjWcVxWFtuBFJ2 fQ== Clinical Information Abdominal distention (test code = [R14.0] 5612404139) Gross Description (test v1cgqKIlLSKryWYuVnPfUG code = 8720989685) VsDZUfq1fxAFYqgLNhEiYr MzNcZnRuYmpcdWMxXGRlZm Ocy8hpp983jKBoq9upPBBi CyV0lTIeWWGmcXNfQ646RV PeYKkbl4qdr8PiWISbbWBz w8U9NKLKsmofoJx3vCwzK7 3pl3B2EorjE7raORHnRAbg VDXxBQdbdQCiRPH7XJJqIA Q4YLiwlyWyriK0MYqswQYg ZyL1JYb7d4jcuUsoOWFpBZ P3c9sbTGpekhOiAC5fxw6v mSo1h3kummGaLCHaPSEelT JEFTJfF8ExzMbjEt6hsNo9 rCouEvunVGF9Gst5RY4gzj 71cdv7eIfxULVhglfkDsS8 HWahCREopqwuCTq4PRecJA GwxUFmXJAdeRSuC1AiQKoj AC7ihls5WvJuDA2nphuuYY ntNDYxKPN5KiRiAYWuz7Hl wqkrJxXrth5gfp74ECU5w0 UemTmgQGS4FMG5ZhFdCr3u mQBfNVTaHH2cYrLzkDFzNC Eonh23yRyiIVkjinEtwD9d QrOrITOmqJGoIEGiCT4icD AcCQBlcL1eamqiYVMhSkQp ivgnIKNfqQjczlEyOd8reH fvNSG4ZWncL3zuaN0fInB9 RAfeQ3dlyD9mVAs5TMwmcI G4SLVahK9wNW8kxyrba8mw ZWG3YXsoCXHcccJ8cqWxBR SjpDRaD1CooN25TuBjiKJy D1PwkN0lLCdmAURtgiq0Hy WoCa5ykZUocHR8MXxtYkbs YWdlXHBnbmNvbnRccGduZG VjXHBsYWluXHBsYWluXGYw MVHlEgAuoGrxpIibtU4yPq BcZnMyMFxwbGFpblxmMFxm czIwIFNwZWNpbWVuIEEgcm TjVZa0CKWwFhKex5ilfGOa HDmaZDX0wREcDNVuTCJkPA RmDA04G2NygdLuJFifIVqk pvOfIzOdDYLhb59bjHV9qC EuaXOvSMkqHAKnWVRyP8Dy jKSrboDehD9ac5ErgnSoGI 5zMBLyznTry6QxZI2iVKYo c3ErfCNhgTZeVCRsp7XwxX atteTwVtMlmH0dHDXwmwOo i6qseHFtDC91WMBuILvbCF xmchh6tWYhumYsnzEtQ7kv RuSefk5cUYNxVBounQSehz ohYTggmrMhTBB6GzZuLWzz ZKHhlZqjsZ7bJnVsUwEcUA W4GbSeM45gSSgbyPN7NVLs QVIdfuTpv6MbuxWqs0b0kL ZdtSKkHTLbY3PdbNGlvcWh nH4nm7Qkmc8rTFEEqSWyw6 Bzi8WfyKYhGHBib7AcjBtd qvTvUX0tOAkvZT7rBIYrYU rqxMRifr37RJPxNTGxiNpz RWNmGOU9k61ws4gxONCkbQ NtWP2cHRF4aSFvvcKfdRN7 ePHcKvPzIKhotEF5RLAbTR zmVMDCgIGgpDMfVl4wUNWv u22fdTKkfS0fWXMiUDAlFd JqN17hYwIpuQZ8tDSrfPgx OMirwTNrO8ziOGJlWKMkBr YkKxLhsSH3kUApegYhpQUq IN4ckrqhcy9vWYinSOM2wp exA2LbTU9zllvfhvJjTRIm SR7fWV1qXCMfwtPdrWmkBV VeABGduVWiYAtnMUzxI4iw KCOzphP1FCJonU2vRYEsjI RkTn8dKMJtu87de1k3NBZ0 vTLdeU4ucCakKOJmFSR2h2 2me9kwAFM0APTlHRRhnX1k FtDaOhHhHVtiJRTtHP3pEL IfUONosRSjj0OpvVEjwJ5g BZDtckXwejWdFSGuzGN4e0 SjXOAhePIcs7ChXXH7pKUf EFRdudOaUEQdEIQdAU7wkH CgVAPeoLUkr9VgcFK9fYKb IUMcP1Jlj37fQXYjDDBwoD PoaXT3KZMyYNUbMJYrkTdp tM2nKdBnTySxNZl2JVDrVL AsAre4JGWfOPwoIWHyISEy MjAgQTQuXHBhclxwYXIgU2 TehOqbloYib0KlMmwsOMJw FNJ3NJDKXQB9EWsjg0YiU0 muIWellTXtO9qgZRIiYSGy IGFfhmNgsPa4WUvvNPBwIQ M8NQMJhBRkaNDtoYKgaRUy wRMtGFUkbF8fEPYpsYUxx8 XrvRW0tCFgREFmiwQJWhaa RAEgjpNqfyZ9fN8dAWValM SvzDUkTEQ6ZdRxWT8sziNe hVSdXNLhKSD0hV4kSO0oCO QjASvwJROgw4WhCLOvFTOe TCJgoeNhbTu3QVwkGQCmrA EeLNYgqhPwnNbvyM6xCyYb ZnMyMFxwbGFpblxmMVxmcz VmQPIvlAciMBRgkDQsCO7D BBwPYQZim1aaW8ptnBZEh7 Jxv0ScetLwLFJtFQuyMWFx XGZzMjBccGFyXHFsXHBsYW osTZLxWIWfRxQxxKpguG9y ZjBcZnMyMFxwYXJccGFyfQ == Embedded Images (test code = 1702298865) [facility] WITH [id number] 11:29:00 Test Item Value Reference Range Interpretation [...] RDW-SD (test code = 48.8 fL 38.5-51.6 98229-9) RDW-CV (test code = 15.2 % 12.1-15.4 788-0) PLT (test code = See_Comment L [Automated 777-3) message] The sy stem which generated this result transmitted reference range : 150 - 328 10*3/ ?L. The reference r meredith was not used to interpret this result as normal/abnormal . MPV (test code = 11.6 fL 9.8-13 71890-6) NRBC/100 WBC (test See_Comment [Automat ed code = 3757839555) message] The system which generated this result transmitted reference range : 0.0 - 10.0 /100 WBCs. The refer ence range was not u sed to interpret th is result as normal/abnormal . NRBC x10^3 (test code <0.01 See_Comment [Auto mated = 2483470925) message] The s ystem which generated this result transmitted reference range : 10*3/?L. The reference range was not used to interpret this result as normal/abnormal . GRAN MAT (NEUT) % 79.1 % (test code = 770-8) IMM GRAN % (test code 0.50 % = 0661238230) LYMPH % (test code = 11.0 % 736-9) MONO % (test code = 7.8 % 5905-5) EOS % (test code = 1.4 % 713-8) BASO % (test code = 0.2 % 706-2) GRAN MAT x10^3(ANC) 4.67 10*3/uL 1.99-6.95 (test code = 0705917784) IMM GRAN x10^3 (test 0.03 10*3/uL 0-0.06 code = 0137615726) LYMPH x10^3 (test code 0.65 10*3/uL 1.09-3.23 L = 731-0) MONO x10^3 (test code 0.46 10*3/uL 0.36-1.02 = 742-7) EOS x10^3 (test code = 0.08 10*3/uL 0.06-0.53 711-2) BASO x10^3 (test code <0.03 0.01-0.09 = 704-7) Lab Interpretation Abnormal (test code = 38455-3) [facility] Test Item Value Reference Range Interpretation Comments MAGNESIUM (test code = 0169041203) 1.7 mg/dL 1.7-2.4 Lab Interpretation (test code = Normal 57105-1) [facility] Test Item Value Reference Range Interpretation Comments PHOSPHORUS (test code = 4381451369) 3.0 mg/dL 2.5-5 Lab Interpretation (test code = Normal 29657-3) [facility] [id number] 13:59:01 Interval extubation and removal of enteric [...] reviewed this study and agree with theabove report.[facility] (ALB,T.PRO,BILI T,BU/BC,ALT,AST,ALK PHOS) 2020-04-09 11:52:00 Test Item Value Reference Range Interpretation Comments TOTAL BILI (test code = 9039843463) 1.2 mg/dL 0.1-1.1 H BILI UNCON (test code = 0000932640) 0.8 mg/dL 0.1-1.1 BILI CONJ (test code = 9261380633) 0.0 mg/dL 0-0.3 T PROTEIN (test code = 9606354072) 4.2 g/dL 6.3-8.2 L ALBUMIN (test code = 4955747937) 2.2 g/dL 3.5-5 L ALK PHOS (test code = 6198287432) 36 U/L 34-122 ALTv (test code = 1742-6) 13 U/L 5-50 AST(SGOT) (test code = 7542027667) 23 U/L 13-40 Lab Interpretation (test code = Abnormal 42318-9) [facility] WITH [id number] 10:01:00 Test Item Value Reference Range Interpretation [...] RDW-SD (test code = 47.6 fL 38.5-51.6 56864-1) RDW-CV (test code = 14.8 % 12.1-15.4 788-0) PLT (test code = See_Comment L [Automated 777-3) message] The sy stem which generated this result transmitted reference range : 150 - 328 10*3/ ?L. The reference r meredith was not used to interpret this result as normal/abnormal . MPV (test code = 11.6 fL 9.8-13 14625-1) NRBC/100 WBC (test See_Comment [Automat ed code = 1244087963) message] The system which generated this result transmitted reference range : 0.0 - 10.0 /100 WBCs. The refer ence range was not u sed to interpret th is result as normal/abnormal . NRBC x10^3 (test code <0.01 See_Comment [Auto mated = 6550401505) message] The s ystem which generated this result transmitted reference range : 10*3/?L. The reference range was not used to interpret this result as normal/abnormal . GRAN MAT (NEUT) % 87.5 % (test code = 770-8) IMM GRAN % (test code 0.90 % = 7845132947) LYMPH % (test code = 7.5 % 736-9) MONO % (test code = 3.4 % 5905-5) EOS % (test code = 0.5 % 713-8) BASO % (test code = 0.2 % 706-2) GRAN MAT x10^3(ANC) 5.12 10*3/uL 1.99-6.95 (test code = 4742302104) IMM GRAN x10^3 (test 0.05 10*3/uL 0-0.06 code = 7696792256) LYMPH x10^3 (test code 0.44 10*3/uL 1.09-3.23 L = 731-0) MONO x10^3 (test code 0.20 10*3/uL 0.36-1.02 L = 742-7) EOS x10^3 (test code = 0.03 10*3/uL 0.06-0.53 L 711-2) BASO x10^3 (test code <0.03 0.01-0.09 = 704-7) DOHLE BODIES (test Present A code = 7792-5) TOXIC CHANGES (test Present A code = 803-7) Lab Interpretation Abnormal (test code = 66979-5) [facility] METABOLIC PANEL (NA, K, CL, CO2, GLUCOSE, BUN, CREATININE, CA)2020-04-09 09:37:00 Test Item Value Reference Range Interpretation Comments NA (test code = 135 mmol/L 135-145 8812675288) K (test code = 3.6 mmol/L 3.5-5 6714448486) CL (test code = 105 mmol/L 98-108 4585159069) CO2 TOTAL (test code = 31 mmol/L 23-31 5660088274) AGAP (test code = <1 2-16 L 8225916500) BUN (test code = 28 mg/dL 7-23 H 8858619788) GLUCOSE (test code = 95 mg/dL 70-110 2444849894) CREATININE (test code = 0.78 mg/dL 0.6-1.25 6118888052) CALCIUM (test code = 8.1 mg/dL 8.6-10.6 L 6746727915) eGFR Calculation mL/min/1.73m2 (Non-) (test code = 0536797623) eGFR Calculation mL/min/1.73m2 () (test code = 2434355098) GILBERTO (test code = GILBERTO) Association of [...] tests). Lab Interpretation Abnormal (test code = 13142-9) [facility] 09:[facility]00 Test Item Value Reference Range Interpretation Comments MAGNESIUM (test code = 3746496262) 1.8 mg/dL 1.7-2.4 Lab Interpretation (test code = Normal 97148-1) [facility] 09:36:00 Test Item Value Reference Range Interpretation Comments PHOSPHORUS (test code = 6819607190) 1.8 mg/dL 2.5-5 L Lab Interpretation (test code = Abnormal 47342-5) [facility] + LACTIC [id number] 21:18:00 Test Item Value Reference Range Interpretation Comments PH (test code = 2) 7.35-7.45 PCO2 (test code = See_Comment [Automate d 9176276904) message] The sy stem which generated this result transmitted reference range : 35 - 45 mmHg. The reference range was not used to interpret this result as normal/abnormal . PO2 (test code = See_Comment L [Automated 5461656959) message] The sy stem which generated this result transmitted reference range : 80 - 100 mmHg. The reference range was not used to interpret this result as normal/abnormal . HCO3 (test code = See_Comment [Automate d 5315951247) message] The sy stem which generated this result transmitted reference range : 22 - 26 mEq/L. The reference range was not used to interpret this result as normal/abnormal . BE (test code = See_Comment [Automated 9945825391) message] The sy stem which generated this result transmitted reference range : -3.0 - 3.0 mEq/ L. The reference r meredith was not used to interpret this result as normal/abnormal . THB (test code = 9.2 g/dL 13.5-18 L 7573148816) %O2HB (test code = 94.3 % 94-99 7994733137) %COHB ART (test code = 0.7 % 0-1.5 3152531474) %METHB ART (test code = 0.3 % 0.4-1.5 L 4686410634) VOL%O2 ART (test code = 12.3 % 15-23 L 4038399778) NA (test code = 135 mmol/L 135-145 2859762597) K+ (test code = 3.7 mmol/L 3.5-5 9311069658) AC CA IONZ (test code = 4.90 mg/dL 4.5-5.3 1445413568) GLUCOSE (test code = 94 mg/dL 70-110 5763568892) LACTIC ACID (test code 1.35 mmol/L = 9659162204) Lab Interpretation Abnormal (test code = 31687-6) [facility] GLUCOSE (AUTOMATED)2020-04-08 16:33:00 Test Item Value Reference Range Interpretation Comments POCT GLU (test code = 6679797967) 109 mg/dL 70-110 Lab Interpretation (test code = Normal 68882-5) [facility] GLUCOSE (AUTOMATED)2020-04-08 16:33:00 Test Item Value Reference Range Interpretation Comments POCT GLU (test code = 9633840503) 120 mg/dL 70-110 H Lab Interpretation (test code = Abnormal 90842-4) [facility] GLUCOSE (AUTOMATED)2020-04-08 16:33:00 Test Item Value Reference Range Interpretation Comments POCT GLU (test code = 3386080457) 93 mg/dL 70-110 Lab Interpretation (test code = Normal 16201-7) [facility] 12:46:00 Test Item Value Reference Range Interpretation Comments POCT GLU (test code = 5405199006) 109 mg/dL 70-110 Lab Interpretation (test code = Normal 81826-0) [facility] WITH [id number] 10:21:00 Test Item Value Reference Range Interpretation [...] RDW-SD (test code = 48.4 fL 38.5-51.6 75953-8) RDW-CV (test code = 15.0 % 12.1-15.4 788-0) PLT (test code = See_Comment L [Automated 777-3) message] The system which generated this result transmitted reference range : 150 - 328 10*3/?L. The reference range was not used to interpret this result as normal/abnormal . MPV (test code = 11.4 fL 9.8-13 04679-3) NRBC/100 WBC (test See_Comment [Automat ed code = 4732474761) message] The system which generated this result transmitted reference range : 0.0 - 10.0 /100 WBCs. The reference range was not used to interpret this result as normal/abnormal . NRBC x10^3 (test code <0.01 See_Comment [Auto mated = 6207288295) message] The system which generated this result transmitted reference range : 10*3/?L. The reference range was not used to interpret this result as normal/abnormal . GRAN MAT (NEUT) % 84.9 % (test code = 770-8) IMM GRAN % (test code 0.80 % = 5940429998) LYMPH % (test code = 7.9 % 736-9) MONO % (test code = 5.3 % 5905-5) EOS % (test code = 0.3 % 713-8) BASO % (test code = 0.8 % 706-2) GRAN MAT x10^3(ANC) 3.34 10*3/uL 1.99-6.95 (test code = 5140117043) IMM GRAN x10^3 (test 0.03 10*3/uL 0-0.06 code = 7824948064) LYMPH x10^3 (test 0.31 10*3/uL 1.09-3.23 L code = 731-0) MONO x10^3 (test code 0.21 10*3/uL 0.36-1.02 L = 742-7) EOS x10^3 (test code <0.03 0.06-0.53 L = 711-2) BASO x10^3 (test code 0.03 10*3/uL 0.01-0.09 = 704-7) GOLDEN CELLS (test code 2+ See_Comment A [Auto mated = 6990-9) message] The system which generated this result transmitted reference range : (none). The reference range was not used to interpret this result as normal/abnormal . BANDS (test code = MARKED INCREASED A 4665510895) DOHLE BODIES (test Present A code = 7792-5) TOXIC CHANGES (test Present A code = 803-7) Lab Interpretation Abnormal (test code = 74772-5) [facility] METABOLIC PANEL (NA, K, CL, CO2, GLUCOSE, BUN, CREATININE, CA)2020-04-08 10:02:00 Test Item Value Reference Range Interpretation Comments NA (test code = 138 mmol/L 135-145 8145980663) K (test code = 4.1 mmol/L 3.5-5 6895390881) CL (test code = 109 mmol/L 98-108 H 3244648639) CO2 TOTAL (test code = 25 mmol/L 23-31 1979148362) AGAP (test code = 2-16 8109673515) BUN (test code = 26 mg/dL 7-23 H 4681150171) GLUCOSE (test code = 103 mg/dL 70-110 7281998069) CREATININE (test code = 0.90 mg/dL 0.6-1.25 3240866570) CALCIUM (test code = 8.4 mg/dL 8.6-10.6 L 5746845168) eGFR Calculation mL/min/1.73m2 (Non-) (test code = 3454344612) eGFR Calculation mL/min/1.73m2 () (test code = 3875179964) GILBERTO (test code = GILBERTO) Association of [...] tests). Lab Interpretation Abnormal (test code = 74854-3) [facility] 10:02:00 Test Item Value Reference Range Interpretation Comments MAGNESIUM (test code = 0827273666) 2.6 mg/dL 1.7-2.4 H Lab Interpretation (test code = Abnormal 96475-4) [facility] + LACTIC [id number] 09:43:00 Test Item Value Reference Range Interpretation Comments PH (test code = 7.32-7.42 4896766428) PCO2 PANKAJ (test code = See_Comment [Auto mated 5627807249) message] The sy stem which generated this result transmitted reference range : 41 - 51 mmHg. The reference range was not used to interpret this result as normal/abnormal . PO2 PANKAJ (test code = See_Comment [Autom ated 9660458515) message] The sy stem which generated this result transmitted reference range : 25 - 40 mmHg. The reference range was not used to interpret this result as normal/abnormal . HCO3 PANKAJ (test code = See_Comment [Auto mated 7446696072) message] The sy stem which generated this result transmitted reference range : 24 - 28 mEq/L. The reference range was not used to interpret this result as normal/abnormal . AC VBE(BEAKER) (test mEq/L code = 4572090549) THB PANKAJ (test code = 11.4 g/dL 13.5-18 L 6555674507) %O2HB PANKAJ (test code = 64.9 % 52-63 H 4502170132) %COHB PANKAJ (test code = 1.0 % 0-1.5 1378374664) %METHB PANKAJ (test code = 0.3 % 0.4-1.5 L 7373367446) VOL%O2 PANKAJ (test code = 10.4 % 6-12 5526266736) NA (test code = 138 mmol/L 135-145 9055997630) K+ (test code = 4.1 mmol/L 3.5-5 2873429444) AC CA IONZ (test code = 4.90 mg/dL 4.5-5.3 5073479912) GLUCOSE (test code = 98 mg/dL 70-110 4298240769) LACTIC ACID (test code 1.90 mmol/L = 4787326590) Lab Interpretation Abnormal (test code = 86891-3) [facility] GLUCOSE (AUTOMATED)2020-04-08 04:25:00 Test Item Value Reference Range Interpretation Comments POCT GLU (test code = 7119074272) 106 mg/dL 70-110 Lab Interpretation (test code = Normal 82681-7) [facility] [id number] 22:55:21Impression: Stable findings with no new changes.Exam: [...] lefthemidiaphragm. Bones and upper abdomen are unchanged. Tnmb, Radiant Results Inft User - 04/07/2020 5:56 [...] unchanged.IMPRESSIONIm pression: Stable findings with no new changes.[facility] MRSA / MSSA Screen by Estefanía [id number] 19:28:00 Test Item Value Reference Range Interpretation Comments MSSA Screen by Estefanía VIEIRA (test code Negative Negative = 37590-7) MRSA/MSSA Positive? (test code = No No 2137956044) Lab Interpretation (test code = Normal 17867-2) [facility] GLUCOSE (AUTOMATED)2020-04-07 17:01:00 Test Item Value Reference Range Interpretation Comments POCT GLU (test code = 6974939715) 95 mg/dL 70-110 Lab Interpretation (test code = Normal 35233-5) [facility] + LACTIC [id number] 14:15:00 Test Item Value Reference Range Interpretation Comments PH (test code = 2) 7.35-7.45 L PCO2 (test code = See_Comment [Automate d 6271145215) message] The sy stem which generated this result transmitted reference range : 35 - 45 mmHg. The reference range was not used to interpret this result as normal/abnormal . PO2 (test code = See_Comment H [Automated 5470005073) message] The sy stem which generated this result transmitted reference range : 80 - 100 mmHg. The reference range was not used to interpret this result as normal/abnormal . HCO3 (test code = See_Comment L [Automate d 7519977983) message] The sy stem which generated this result transmitted reference range : 22 - 26 mEq/L. The reference range was not used to interpret this result as normal/abnormal . BE (test code = See_Comment L [Automated 4296283721) message] The sy stem which generated this result transmitted reference range : -3.0 - 3.0 mEq/ L. The reference r meredith was not used to interpret this result as normal/abnormal . THB (test code = 9.6 g/dL 13.5-18 L 8861124584) %O2HB (test code = 98.6 % 94-99 6632551667) %COHB ART (test code = 0.3 % 0-1.5 3362561308) %METHB ART (test code = 0.0 % 0.4-1.5 L 4907397484) VOL%O2 ART (test code = NA 3378553155) NA (test code = 131 mmol/L 135-145 L 7444073094) K+ (test code = 4.3 mmol/L 3.5-5 0071587843) AC CA IONZ (test code = 4.60 mg/dL 4.5-5.3 2461379392) GLUCOSE (test code = 147 mg/dL 70-110 H 4229152620) LACTIC ACID (test code 3.12 mmol/L 0.5-2.2 H = 0869301340) Lab Interpretation Abnormal (test code = 63002-4) [facility] Whole [id number] 14:00:00 Test Item Value Reference Range Interpretation Comments LACTIC ACID (test code = 3.12 mmol/L 0979298570) [facility]2020-[facility]-07 12:53:00 Test Item Value Reference Range Interpretation Comments POCT GLU (test code = 3777606967) 140 mg/dL 70-110 H Lab Interpretation (test code = Abnormal 94755-8) [facility] + LACTIC [id number] 12:01:00 Test Item Value Reference Range Interpretation Comments PH (test code = 2) 7.35-7.45 L PCO2 (test code = See_Comment L [Automate d 0472958723) message] The sy stem which generated this result transmitted reference range : 35 - 45 mmHg. The reference range was not used to interpret this result as normal/abnormal . PO2 (test code = See_Comment H [Automated 6376898316) message] The sy stem which generated this result transmitted reference range : 80 - 100 mmHg. The reference range was not used to interpret this result as normal/abnormal . HCO3 (test code = See_Comment L [Automate d 8100109743) message] The sy stem which generated this result transmitted reference range : 22 - 26 mEq/L. The reference range was not used to interpret this result as normal/abnormal . BE (test code = See_Comment L [Automated 0234798214) message] The sy stem which generated this result transmitted reference range : -3.0 - 3.0 mEq/ L. The reference r meredith was not used to interpret this result as normal/abnormal . THB (test code = 10.8 g/dL 13.5-18 L 3961950205) %O2HB (test code = 98.8 % 94-99 2446738370) %COHB ART (test code = 0.3 % 0-1.5 1144256226) %METHB ART (test code = 0.0 % 0.4-1.5 L 0597007385) VOL%O2 ART (test code = 15.4 % 15-23 6003434138) NA (test code = 126 mmol/L 135-145 L 1071149037) K+ (test code = 4.3 mmol/L 3.5-5 1474749715) AC CA IONZ (test code = 4.70 mg/dL 4.5-5.3 5733633677) GLUCOSE (test code = 144 mg/dL 70-110 H 8301428243) LACTIC ACID (test code 2.79 mmol/L = 2142570922) Lab Interpretation Abnormal (test code = 89768-3) [facility]INE [id number] 11:44:00 Test Item Value Reference Range Interpretation Comments URINE CULTURE (test No aerobic growth (< code = 630-4) 1000 CFU/mL) [facility] WITH [id number] 09:53:00 Test Item Value Reference Range Interpretation [...] RDW-SD (test code = 48.8 fL 38.5-51.6 25885-3) RDW-CV (test code = 15.0 % 12.1-15.4 788-0) PLT (test code = See_Comment L [Automated 777-3) message] The sy stem which generated this result transmitted reference range : 150 - 328 10*3/ ?L. The reference r meredith was not used to interpret this result as normal/abnormal . MPV (test code = 11.8 fL 9.8-13 19090-7) IPF % (test code = 6.5 % 1.2-10.7 Platelet count 3466279715) measured by fluorescence method. NRBC/100 WBC (test See_Comment [Automat ed code = 9062629737) message] The system which generated this result transmitted reference range : 0.0 - 10.0 /100 WBCs. The refer ence range was not u sed to interpret th is result as normal/abnormal . NRBC x10^3 (test code <0.01 See_Comment [Auto mated = 6730046432) message] The s ystem which generated this result transmitted reference range : 10*3/?L. The reference range was not used to interpret this result as normal/abnormal . SEG % (test code = 20 % 33-76 L 02769-8) BAND % (test code = 45 % 0-1 H 36277-0) META % (test code = 9 % See_Comment H [Automa dain 97216-9) message] The sy stem which generated this result transmitted reference range : <=0. The refere nce range was not u sed to interpret th is result as normal/abnormal . MYELO % (test code = 1 % See_Comment H [Autom ated 08589-1) message] The sy stem which generated this result transmitted reference range : <=0. The refere nce range was not u sed to interpret th is result as normal/abnormal . LYMPH % (test code = 20 % 14-54 45109-5) MONO % (test code = 5 % 0-4 H 47375-2) ANC (test code = 1.40 10*3/uL 1.99-6.95 L 2168655341) GOLDEN CELLS (test code 2+ See_Comment A [...] 803-7) Lab Interpretation Abnormal (test code = 13236-2) [facility] METABOLIC PANEL (NA, K, CL, CO2, GLUCOSE, BUN, CREATININE, CA)2020-04-07 09:21:00 Test Item Value Reference Range Interpretation Comments NA (test code = 137 mmol/L 135-145 5195004422) K (test code = 4.6 mmol/L 3.5-5 3832877745) CL (test code = 110 mmol/L 98-108 H 9032374675) CO2 TOTAL (test code = 17 mmol/L 23-31 L 7469780820) AGAP (test code = 2-16 2034704916) BUN (test code = 24 mg/dL 7-23 H 4542524733) GLUCOSE (test code = 132 mg/dL 70-110 H 9287746354) CREATININE (test code = 1.23 mg/dL 0.6-1.25 4157802372) CALCIUM (test code = 8.0 mg/dL 8.6-10.6 L 3804757895) eGFR Calculation mL/min/1.73m2 (Non-) (test code = 4376067318) eGFR Calculation mL/min/1.73m2 () (test code = 0916754956) GILBERTO (test code = GILBERTO) Association of [...] tests). Lab Interpretation Abnormal (test code = 09612-9) [facility] 09:19:00 Test Item Value Reference Range Interpretation Comments MAGNESIUM (test code = 5532906818) 2.9 mg/dL 1.7-2.4 H Lab Interpretation (test code = Abnormal 70152-4) [facility]2020-04-07 04:37:00 Test Item Value Reference Range Interpretation Comments POCT GLU (test code = 3565880760) 111 mg/dL 70-110 H Lab Interpretation (test code = Abnormal 99892-5) [facility] CenterHCV [id number] 02:35:00 Test Item Value Reference Range Interpretation Comments HCV Ab (test code = 41544-1) Negative HCV Semi-Quantitative (test code = 15053-2) [facility] + LACTIC [id number] 02:15:00 Test Item Value Reference Range Interpretation Comments PH (test code = 7.32-7.42 L 4310390766) PCO2 PANKAJ (test code = See_Comment L [Auto mated 2114874009) message] The sy stem which generated this result transmitted reference range : 41 - 51 mmHg. The reference range was not used to interpret this result as normal/abnormal . PO2 PANKAJ (test code = See_Comment HH [Autom ated 7868329192) message] The sy stem which generated this result transmitted reference range : 25 - 40 mmHg. The reference range was not used to interpret this result as normal/abnormal . HCO3 PANKAJ (test code = See_Comment L [Auto mated 0895126965) message] The sy stem which generated this result transmitted reference range : 24 - 28 mEq/L. The reference range was not used to interpret this result as normal/abnormal . AC VBE(BEAKER) (test mEq/L code = 4631593351) THB PANKAJ (test code = 11.2 g/dL 13.5-18 L 2452904640) %O2HB PANKAJ (test code = 98.7 % 52-63 H 0887065697) %COHB PANKAJ (test code = 0.3 % 0-1.5 4086903577) %METHB PANKAJ (test code = 0.1 % 0.4-1.5 L 6658993542) VOL%O2 PANKAJ (test code = 15.9 % 6-12 H 7674254667) NA (test code = 136 mmol/L 135-145 2463985764) K+ (test code = 4.2 mmol/L 3.5-5 8123842935) AC CA IONZ (test code = 4.60 mg/dL 4.5-5.3 3574766567) GLUCOSE (test code = 108 mg/dL 70-110 4004915074) LACTIC ACID (test code 2.37 mmol/L = 2568009487) Lab Interpretation Abnormal (test code = 15541-3) [facility]+NA+K+GLU+CA2+2020-04-07 01:54:00 Test Item Value Reference Range Interpretation Comments PH (test code = 2) 7.35-7.45 LL PCO2 (test code = See_Comment [Automate d message] 2689668007) The system [employer] generated this result transmit dain reference range : 35 - 45 mmHg. The reference range was not used to interpret this result as normal/abnormal . PO2 (test code = See_Comment H [Automated message] 8871154786) The system [employer] generated this result transmit dain reference range : 80 - 100 mmHg. The reference range was not used to interpret this result as normal/abnormal . HCO3 (test code = See_Comment L [Automate d message] 4437659691) The system [employer] generated this result transmit dain reference range : 22 - 26 mEq/L. The reference range was not used to interpret this result as normal/abnormal . BE (test code = See_Comment L [Automated message] 0050548651) The system [employer] generated this result transmit dain reference range : -3.0 - 3.0 mEq/ L. The reference r meredith was not used to interpret this result as normal/abnormal . THB (test code = 10.6 g/dL 13.5-18 L 6336381441) %O2HB (test code = 99.0 % 94-99 5023342120) %COHB ART (test code = 0.3 % 0-1.5 3175050871) %METHB ART (test code = 0.3 % 0.4-1.5 L 8107588867) VOL%O2 ART (test code = 15.3 % 15-23 6442322741) NA (test code = 136 mmol/L 135-145 5985232581) K+ (test code = 3.1 mmol/L 3.5-5 L 6359599645) AC CA IONZ (test code = 4.30 mg/dL 4.5-5.3 L 3010090671) GLUCOSE (test code = 113 mg/dL 70-110 H 3266358708) Lab Interpretation Abnormal (test code = 20448-7) [facility]X+NA+K+GLU+CA2+2020-04-07 01:53:00 Test Item Value Reference Range Interpretation Comments PH (test code = 2) 7.35-7.45 PCO2 (test code = See_Comment L [Automate d message] 9648013667) The system [employer] generated this result transmit dain reference range : 35 - 45 mmHg. The reference range was not used to interpret this result as normal/abnormal . PO2 (test code = See_Comment H [Automated message] 7108077047) The system [employer] generated this result transmit dain reference range : 80 - 100 mmHg. The reference range was not used to interpret this result as normal/abnormal . HCO3 (test code = See_Comment L [Automate d message] 1447518949) The system [employer] generated this result transmit dain reference range : 22 - 26 mEq/L. The reference range was not used to interpret this result as normal/abnormal . BE (test code = See_Comment L [Automated message] 2934858509) The system [employer] generated this result transmit dain reference range : -3.0 - 3.0 mEq/ L. The reference r meredith was not used to interpret this result as normal/abnormal . THB (test code = 13.1 g/dL 13.5-18 L 1647356126) %O2HB (test code = 98.9 % 94-99 8664795496) %COHB ART (test code = 0.1 % 0-1.5 4535545928) %METHB ART (test code = 0.6 % 0.4-1.5 1261630037) VOL%O2 ART (test code = 19.3 % 15-23 0003752470) NA (test code = 132 mmol/L 135-145 L 8390321176) K+ (test code = 4.2 mmol/L 3.5-5 8509729479) AC CA IONZ (test code = 4.60 mg/dL 4.5-5.3 8830519511) GLUCOSE (test code = 99 mg/dL 70-110 6840219261) Lab Interpretation Abnormal (test code = 73607-4) [facility] WITH [id number] 01:29:00 Test Item Value Reference Range Interpretation Comments HIV Negative Negative Semi-quantitative (test code = 24603-5) GILBERTO (test code = Non-reactive for HIV-1 GILBERTO) antigen and HIV-1/HIV-2 antibodies. ?No laboratory evidence of HIV infection. ?Repeat in 2-4 weeks if acute HIV infection is suspected. [facility] GLUCOSE (AUTOMATED)2020-04-07 00:40:00 Test Item Value Reference Range Interpretation Comments POCT GLU (test code = 4120712052) 100 mg/dL 70-110 Lab Interpretation (test code = Normal 89688-9) [facility] GLUCOSE (AUTOMATED)2020-04-07 00:06:00 Test Item Value Reference Range Interpretation Comments POCT GLU (test code = 8158833596) 116 mg/dL 70-110 H Lab Interpretation (test code = Abnormal 32058-7) [facility] GLUCOSE (AUTOMATED)2020-04-06 22:48:00 Test Item Value Reference Range Interpretation Comments POCT GLU (test code = 3134993768) 94 mg/dL 70-110 Lab Interpretation (test code = Normal 48105-1) [facility] [id number] 21:06:45 1. Interval placement of right internal [...] reviewed this study and agree with the abovereport.[facility] WITH [id number] 20:15:00 Test Item Value Reference Range Interpretation [...] RDW-SD (test code = 49.2 fL 38.5-51.6 81105-7) RDW-CV (test code = 14.7 % 12.1-15.4 788-0) PLT (test code = See_Comment L [Automated 777-3) message] The sy stem which generated this result transmitted reference range : 150 - 328 10*3/ ?L. The reference r meredith was not used to interpret this result as normal/abnormal . MPV (test code = 12.1 fL 9.8-13 88669-9) NRBC/100 WBC (test See_Comment [Automat ed code = 0980276485) message] The system which generated this result transmitted reference range : 0.0 - 10.0 /100 WBCs. The refer ence range was not u sed to interpret th is result as normal/abnormal . NRBC x10^3 (test code <0.01 See_Comment [Auto mated = 9558570474) message] The s ystem which generated this result transmitted reference range : 10*3/?L. The reference range was not used to interpret this result as normal/abnormal . SEG % (test code = 38 % 33-76 53473-7) BAND % (test code = 28 % 0-1 H 32040-7) META % (test code = 4 % See_Comment H [Automa dain 71197-1) message] The sy stem which generated this result transmitted reference range : <=0. The refere nce range was not u sed to interpret th is result as normal/abnormal . MYELO % (test code = 6 % See_Comment H [Autom ated 56116-6) message] The sy stem which generated this result transmitted reference range : <=0. The refere nce range was not u sed to interpret th is result as normal/abnormal . LYMPH % (test code = 16 % 14-54 98670-9) MONO % (test code = 8 % 0-4 H 57550-4) ANC (test code = 0.40 10*3/uL 1.99-6.95 L 8759761555) GOLDEN CELLS (test code 3+ See_Comment A [Auto mated = 5190-9) message] The sy stem which generated this result transmitted reference range : (none). The reference range was not used to interpret this result as normal/abnormal . DOHLE BODIES (test Present A code = 7792-5) Lab Interpretation Abnormal (test code = 52272-5) [facility] 19:55:00 Test Item Value Reference Range Interpretation Comments APTT Patient (test code See_Comment H [Au tomated message] = 3173-2) The system [employer] generated this result transmitted ref erence range: 26 - 36 Seconds. The reference range was not used to int erpret this result as normal/abnormal . Lab Interpretation (test Abnormal code = 92525-5) [facility] CenterPROTHROMBIN TIME / [id number] 19:55:00 Test Item Value Reference Range Interpretation Comments PROTIME PATIENT (test See_Comment H [Auto mated message] code = 5964-2) The system [employer] generated this result transmitted ref erence range: 10.1 - 1 2.6 Seconds. The reference range was not used to int erpret this result as normal/abnormal . INR (test code = 6301-6) Nor mal INR <1.1; Warfarin Therap eutic range 2.0 to 3. 0 or 2.5 to 3.5, dep ending upon the indica tions. Lab Interpretation (test Abnormal code = 79749-6) [facility] CenterCOMP. METABOLIC PANEL (96310)2020-04-06 19:50:00 Test Item Value Reference Range Interpretation Comments NA (test code = 137 mmol/L 135-145 8363323748) K (test code = 3.6 mmol/L 3.5-5 9760875284) CL (test code = 109 mmol/L 98-108 H 9055937488) CO2 TOTAL (test code = 18 mmol/L 23-31 L 0123736235) AGAP (test code = 2-16 4606987186) BUN (test code = 27 mg/dL 7-23 H 2463174692) GLUCOSE (test code = 91 mg/dL 70-110 3743351115) CREATININE (test code = 1.38 mg/dL 0.6-1.25 H 6529664201) TOTAL BILI (test code = 1.0 mg/dL 0.1-1.5 1351604559) CALCIUM (test code = 8.0 mg/dL 8.6-10.6 L 0907899242) T PROTEIN (test code = 4.3 g/dL 6.3-8.2 L 1572205738) ALBUMIN (test code = 2.7 g/dL 3.5-5 L 3791937712) ALK PHOS (test code = <20 34-122 L 4238837810) ALTv (test code = 9 U/L 5-50 1742-6) AST(SGOT) (test code = 21 U/L 13-40 3134019517) eGFR Calculation mL/min/1.73m2 (Non-) (test code = 2650986892) eGFR Calculation mL/min/1.73m2 () (test code = 6436693521) GILBERTO (test code = GILBERTO) Association of [...] tests). Lab Interpretation Abnormal (test code = 29098-8) [facility] (NA, K, CL, CO2, GLUCOSE, BUN, CREATININE, [place])2020-04-06 19:50:00 Test Item Value Reference Range Interpretation Comments NA (test code = 137 mmol/L 135-145 0863115084) K (test code = 3.6 mmol/L 3.5-5 8768548392) CL (test code = 109 mmol/L 98-108 H 7176849597) CO2 TOTAL (test code = 18 mmol/L 23-31 L 4748872358) AGAP (test code = 2-16 6809987327) BUN (test code = 27 mg/dL 7-23 H 5611186353) GLUCOSE (test code = 91 mg/dL 70-110 0997351750) CREATININE (test code = 1.38 mg/dL 0.6-1.25 H 4054648691) CALCIUM (test code = 8.0 mg/dL 8.6-10.6 L 1775363156) eGFR Calculation mL/min/1.73m2 (Non-) (test code = 2959505512) eGFR Calculation mL/min/1.73m2 () (test code = 9034262575) GILBERTO (test code = GILBERTO) Association of [...] tests). Lab Interpretation Abnormal (test code = 99811-6) [facility]44[facility]00 Test Item Value Reference Range Interpretation Comments MAGNESIUM (test code = 2602544948) 1.7 mg/dL 1.7-2.4 Lab Interpretation (test code = Normal 63629-5) [facility] + LACTIC [id number] 19:25:00 Test Item Value Reference Range Interpretation Comments PH (test code = 7.32-7.42 L 6821557876) PCO2 PANKAJ (test code = See_Comment L [Auto mated 0179884177) message] The sy stem which generated this result transmitted reference range : 41 - 51 mmHg. The reference range was not used to interpret this result as normal/abnormal . PO2 PANKAJ (test code = See_Comment H [Autom ated 7865423878) message] The sy stem which generated this result transmitted reference range : 25 - 40 mmHg. The reference range was not used to interpret this result as normal/abnormal . HCO3 PANKAJ (test code = See_Comment L [Auto mated 1742877098) message] The sy stem which generated this result transmitted reference range : 24 - 28 mEq/L. The reference range was not used to interpret this result as normal/abnormal . AC VBE(BEAKER) (test mEq/L code = 9427053349) THB PANKAJ (test code = 10.1 g/dL 13.5-18 L 7078770814) %O2HB PANKAJ (test code = 84.0 % 52-63 H 3178974995) %COHB PANKAJ (test code = 0.6 % 0-1.5 6244037278) %METHB PANKAJ (test code = 0.3 % 0.4-1.5 L 5899877011) VOL%O2 PANKAJ (test code = 12.0 % 6-12 3283588018) NA (test code = 135 mmol/L 135-145 8303640285) K+ (test code = 3.5 mmol/L 3.5-5 7617765540) AC CA IONZ (test code = 4.50 mg/dL 4.5-5.3 9086448163) GLUCOSE (test code = 87 mg/dL 70-110 2334484582) LACTIC ACID (test code 3.34 mmol/L = 3504632324) Lab Interpretation Abnormal (test code = 24851-5) [facility] L[facility]IC [id number] 19:19:00 Test Item Value Reference Range Interpretation Comments PH (test code = 2) 7.35-7.45 L PCO2 (test code = See_Comment L [Automate d 3228064872) message] The sy stem which generated this result transmitted reference range : 35 - 45 mmHg. The reference range was not used to interpret this result as normal/abnormal . PO2 (test code = See_Comment H [Automated 4726051697) message] The sy stem which generated this result transmitted reference range : 80 - 100 mmHg. The reference range was not used to interpret this result as normal/abnormal . HCO3 (test code = See_Comment L [Automate d 9770726465) message] The sy stem which generated this result transmitted reference range : 22 - 26 mEq/L. The reference range was not used to interpret this result as normal/abnormal . BE (test code = See_Comment L [Automated 5193529190) message] The sy stem which generated this result transmitted reference range : -3.0 - 3.0 mEq/ L. The reference r meredith was not used to interpret this result as normal/abnormal . THB (test code = 10.4 g/dL 13.5-18 L 9596785564) %O2HB (test code = 98.3 % 94-99 5614504783) %COHB ART (test code = 0.3 % 0-1.5 0966673002) %METHB ART (test code = 0.3 % 0.4-1.5 L 5297681053) VOL%O2 ART (test code = 14.8 % 15-23 L 0560353028) NA (test code = 135 mmol/L 135-145 2091249310) K+ (test code = 3.5 mmol/L 3.5-5 3328947321) AC CA IONZ (test code = 4.50 mg/dL 4.5-5.3 5653332123) GLUCOSE (test code = 96 mg/dL 70-110 3854654703) LACTIC ACID (test code 2.95 mmol/L = 8070144369) Lab Interpretation Abnormal (test code = 31085-3) [facility] [id number] 16:51:00 Test Item Value Reference Range Interpretation Comments Case Report (test code Surgical Pathology ? ? = 2432067553) ?Case: [id number] ? Authorizing Provider: ?Bia Pedro MD ?Collected: ? 04/03/2020 1513 ?Ordering Location: ? ? [facility] OR ? Received: ?04/03/2020 1657 ? Department ? Pathologist: ? Nimisha Galloway MD PHD ?Specimens: ? A) - COLON, total abdominal colectomy ? B) - COLON, donuts x2 ? Final Diagnosis (test i3gclBDyHRAqn3tfGJRmyA code = 9204806710) FuZzEwMzNcZnRuYmpcdWMx CFecitEgCRkfn9GkM9ZsTx AwMFxhbnNpXGRlZmxhbmcx AZJcAWW6yxObSBQpYCfzYT WyCHcnLe5psKHzaKhiDnYa JWCsl0uokoQHidbenMc3r6 clQQZsSfO6cNMiLEagW8dk xaIraRVbUAVkNHc6gW60CY KclT0mhOJmKNilouNvPLdv paXlmqFyJlv4WQZgV2yqRD NlEPYkN8MoIO3kSSMwOrn3 TRA7CYB1pDzwk3G4aWAccX AvrSnhKdXvHkDbGDQVa8Ms ORj6lLaqE6AmTPTsUnW7jN QgUGFyYWdyYXBoIEZvbnQ7 rPakU6OzZFHcBkJ0fNJoZA BiTJtpWKKcWw9hgEt2sAla AzdgYPS9Qtb0QH7pxb58fz b9bZlcGYOcvbdpFnW5QQem TXZnnaqhLJy4MLtzAEImcX XqWSMouHBiO2SwIDrvMU1w ryq5AzAfEB7ellzdKNfoNJ VxKUN1RwCiOYMty9Gooqnz YbKgnr9cnt82KCK4w4HbcU dtOIJ8MOG5YhAeUq4rmAGm YVXjAN2hUpIfsMNlMWCloz 54oRbyCSvchrYunO3zCyIj FDHwzGQmQQHkGJ4kpQJfYH VraU1cmzodUMRkJfLtumng FDWogJytifFcDt0chYmgMV O3ZJtxC2atqO2pTfK6XZgs V8jvjK9iZVr9TYoorKD3JS LsmI9pOD7wtbsje6zwSMC9 SKwrHERjfvA3zmMjJWCvnX UwU2IwoH90WpSasQUpM3Rw kI4dDRcnVCDdnmo7IvElLs 8ubUPzuCD4EIbpVtgdNYdk XHBnbmNvbnRccGduZGVjXH BsYWluXHBsYWluXGYwXGZz IcLsiIfhsEebsC0uBoChCz MyMFxwbGFpblxmMVxmczIw VWJmulXFGfIGO7eEFbrlLP 4ROXspTrJERIXLOA7TLjul UHOmDAOdMK9tFqCEB9DZEW YqU81BW4FJQWtPKcFHVXQQ DZPEWe0KT91WAZRZAK8PIj ATSSkGIEWPQ14JMQKSSQRJ TjESVVVDKKVNV7pNIEgxCN DvLKLhZMUjE1PRVYTLK8GO B87kZCNzegGvLVDlBUENXJ lIXMWBWXIQZMZZP0HQFB7I UK7PLKqPMCSnD0xIZIQZPH ZkB26QN71SPmPTYqPCCRyV GNWVVXAXSD0UFBpUZbQNSP lUXnlEDQELJ9XFBGWswWTc HGUiAIRlVS4KN0HSJIDGHM 9OXHBhciAgICAgLSBOTyBF JrjZAL5DYLLCYtKPXTTGI4 TOCA8IC3GPW5iYEQqjPROr ESLhRS1bRC5JOBWDUoNVJF BTRVNTSUxFIFNFUlJBVEVE QZBHFA7IVNHfzCCnWONxKJ AtIFJFQUNUSVZFIExZTVBI WF5QHJWFYHPqhvKpRISiJK JJCAGEQZCwDjPYCWWMSV3P BM4UAgoPYoPocJCrVTRelp xwbGFpblxmMVxmczIyXGxh xnawFFXlQMlzU3cjIlEcJU BmpWykTRzll0DnKRNcLFNn RXxsumQiQQLrd0hjWBUmPd E3nXJnFJSDIlZDSvVuDI1w OM9uPFCmHOIrHFvwRaEHNF xwbGFpblxmMVxmczIwXHBh dcwjXJQ9v8qtvNVyKEAfrT EkVkPsEXZgMQUhk2reSPFp bGFuZzEwMzNcZnRuYmpcdW PsKVYoXjCve9urr232nQJx y1ddFVRjAqZ7oZPjKKStnY makpi6dTjlJaCkFUHsm4jw cyBcZmNoYXJzZXQwIEFyaW MrQ538XCScSMhhm1yck4Af TXLonTUsk6P2EVGXZHszDl VwA426n5aku0ooouHckQL5 MOTvCOA0PExphuSzhuY0YS yhxQEcYbL0BVuftoYgKHaf wiAsfdYeMnc5ONJwC165MN M2jUphy7hvSNB3RSIaQUPk UwvgTz2ulHCxQ744FFIgCV ALHIIfkFf6XQUkpvIhdgOu tNGYr362Z890x6ncFGKcpo LvkLdTmzlbo5rrX608EHSo cGVydzEyMjQwXHBhcGVyaD I7JMCgGH2lyzgdMWqvICgp KBEpwoE1HLYyoGUfW0XfXS PiDH5nvgmiZJR8CLfeWGHm RSP5VsQyDXSjs8Kynde4Od Kyve8crp43XXN2d8NsnKef QSO6HPJ1DmMyJt6ogTDgAA FfRA7pFbHnrZXzRTRrlm74 xGbeARnowuVfzQ7oHeNcKS OuzOKaKWOaTP3mcIJoWNKg nM3rdsvpBZMbEyEctlugJL KoyUxtnwIoEh5pqAxyCKN6 CHtbW6bjlN1tNqE2HEjbL2 wmaQ9jMQv7SBycyVV3TJOs vE7tLG1dvbecg5hqMYjkJI dvRNRrhlG2qqY9UXTmtCYg J3PrzM4eKFMuAK2yohgzd6 gqSRZ4ZYluQRJvIZO6IvFp MCShg1Dsgum3HqQxk8XcmY QbMPoiZ48ui735ZPVbonFk Z1ypcIVpzuttyBBosyhpDU tgtuU6GJNgVDRbBVoiDGGs XGZzMjBcbGFuZzEwMzNcaG ljaFxmMVxkYmNoXGYxXGxv A1qwTtKyX6EfHHJwUbWrqL XcLAxauYN2HEBaAWLly33q eFm1WHKfrfdjl0ViXNDsdJ UasBOyoE0djdOmn8ifEZBq JMOxRBNiZ8JmZVF5aESsSM LzeNPfxZX2WX8sekPwQB8b ZGUgYnkgcmVzaWRlbnRzLC JmJLacf6fsLI8vEDLckXbm lS3gjCS0SEVde4kvaULbtW Dak6ixt7CupwKxNPwpKWTu VJpiNWQnERTuIF7eIQYggP LuszGqd6C6VfbgmKWhsvoi PukwxkO8INbosshcKKMxAZ tsM2rlVbJtQBRyiWtwVgvs j0GqZVNcWJWmZmnczKXipI 0= Clinical Information Large bowel (test code = obstruction [K56.609] 0700682115) Gross Description (test m1rnfTXnOHUgwDMtOsLvGA code = 2300471271) HcWGQsv9jqMDBczMUqYnVs MzNcZnRuYmpcdWMxXGRlZm Hwu7xfd662qOXep1kaNXQd GvG4jHSbAAIphNKuK883YM XzQEhuv2tjs6QgXEXnyBAc a3U1XRHGsftryXm6vFxxR4 1sv2S7KhwfI9bnDULvOEgk BULnAAwghBTdJEJ2RYGsYB A1QPfdjaQfcmR8NEkkdRGz NuS7HPl7v8cspIvbADFuXA T0f9xrIRwkfcRbIY0aug6h eHk1u6ckokEoTTHtQNRwlD WEFHZpT4IcrLomYj1wvFl2 hGihVigbWKH8Cmk7VQ4ali 50loy6hRsfUNBzztquYmS2 YHrrLOKgjczgQMf3YEfvIY DsvGIoTNEeqJXnE8KeMQhc OF2uagr3BsCnTY5pddhuVZ dwUNPzOMM8XuTdWZIpg6Rl zeaiYlCxci2ldm90TWG4z6 EydJyhXTI9IOX9CnZtWz6y xJLoXMPbPN0zXcGuuATrVO Lvpe00qQenPAxakiWwiM3o QgDtDAJmzZSaGWIaMV6moS SwGGHedY0zxmsoIBNlVmRe ngenWFPeeUwkdpUdPe8ilZ bzXTX8VGooG8etoA6fNjY8 VTbcD6nclF4ePQn1DLpmdX F3SVDdmC0iEJ9kqjzyz5nt XLQ0HXppSQGnjmH7ruUlCE YinZFsE9WtgS47RgXhaBYn Q4FyeA6bGQhqFNMfzrc9Nd TjHt3puULnvHP1KXdeNgsm YWdlXHBnbmNvbnRccGduZG VjXHBsYWluXHBsYWluXGYw UHIjGrYmiOtbgKbhfM5wWd BcZnMyMFxwbGFpblxmMVxm czIwIFNwZWNpbWVuIEEgaX RkcoFiNYg1HRBkYtFuv5so xNDmUDivCDJej8k2fBO3oB StjCC7bIWajSkiVH6sgMNn SDOMNP24gGUlxqPpR71wq5 3vFAUclDQyEBYrEL9nkN7f iSXap2arV8GljXzpCKKhmw VaK28af6mqjNMfa3QzNEE7 g0GicKLbs3koZ0XsiOrqn8 QcQ4pvUT6mDXdtTnHjY50t aN9uvNFnL4AhCCadLA7pAV ZrRaTyP17gaN7mBZzpbVS3 WVDyLKuleHmxODQ8UZTlKT OcjSByeKtyAQpraTwjvK1x CJWuWJNfhSPofhKyWZ9qmI nypTQ4InGoK48rPEmroLK9 CRQxTDT0wLKiJF2rBUeoh4 NzbHkgaWRlbnRpZmlhYmxl WRNzsZYsACq4AlUCqDUhk1 Ahc9HaTThxXJZpew8qNHQa QD2yZOQfj783gGK6lLLlOG SaeCW6LPRcyaPzr9Omru9i VGhlIHNwZWNpbWVuIGlzIG 7jDV6uUHUsbF4hGkSseRFu UB69jT4sh8HsqGWryXLcAr 9yZGVyLiBUaGVyZSBpcyBh PRApplS5qATckiTqpRlutC M0WYxwBOsnLXypYFKlM0Kh LLBgb50cSBRoadU7tV66du AthAZdBCE8CIDqTHZcuXTd XrQkY99iJwGubZU1eKHiRL jdiMSaYG4ozyauhnNstkZq FGGxW65wQnRzcBJ0sCOdwI CjoLqdTRjdiGEzX3taEgYA ai51gH7xwCU6haM3iCGwzM VnfeevfPIooUYtRI66tN5u UUHsp0ZaR2jvSKwra6Hpnc Q0vGIaJq50WVibsZLsOCpa dGVuZGVkIGZvciBhIGxlbm x9pTTwHhHwIK7mPKKvEoPX pWBdkV8abNoaCLTds5Fcvo ZgUSMrBDzff63vmGvrRP01 X28tCUUdqtCyq0GejEj9CY UjETK3BV8yUTxrR3VhwvCo YXIsIHdpdGggYXJlYXMgb2 NoO18pNvnnc6NqdjBaJOYp LFKoDZ9sALOnpvKsP1qsVw Wzpr4aFPLxFA2qGs68HABx RO8dNJduCIycmRytm0JelA mgPCOlo3YutzIbMEGmRCcb v13fsHEraJrkK6yslzZdGW TeOHHdvSDrCOG4YDfeHG5j mG3zWGOul73rIZ8aEVCqZc IsqRzwROEpNCGgKS0ygK9f vttomYOng1KgBY7lXRAaNM Fgz9kwdeYasfI2XH0aoIwk uwVmgoHifGzpMADkx6UwqP XmLXYmoE6zROKuYHXxmwAx mk1gi1x7KNKfRMJuFV5gFW XsoOrgNMfoMT9kNTKtwLNz mK9mtBqnjyS9aPKoQMGksz BhbiBhZGRpdGlvbmFsIHdl oMdshLYxkEAgFKQ4nmxuX6 HlVTXtPDYyJLMjm4VevZF3 jkX4pKOfpNoes6VuG1FlIF b5okT7fX6tJILwVRIcTZtp TBFruL0uk7xbvVJvkEkyx0 RlC8LwTMOwrVKzJOevkDky ZT8aHOK3XDItYMGwa1OnsS QybYKoFmQughTxh3FfwbRy YGIxVQDvuEUngfOvJF9tcL mkAegiIY85JVMuLGksNKEv ZB5kuZQwDYJ5sCDeORZba8 HkwKTlJVQgOWEod2ZoxMro IGxpbmUgYXQgdGhlIGJsaW 3uTBMbKPicp4Fqhl58ssXp ISSmzAInaEQgF5djJBIlRQ qjc4AsPDPzb3P5OS4sGPzy IHJlbWFpbmluZyBtdWNvc2 Saa2MpsBcbUQbdQYYzKTqu INHkFcK2e9AzsDTcyUBweV BhbmQgdGhlIHZpYWJpbGl0 qUBpAtZ5yHIzsjMyXFC1hZ 2kAG4cwlowoqKySB1jx1La NpEzG1Boc3VzdCIwLFTvxc 1pbmVkLiBUaGUgcGVyaWNv bN5plYBuUMIpyF1lCKA0pE MriKHrhAHxrYDxaVZ8UDOa Tp7pQPRojR2zi6vzdZBfdM gapNnwji7qLPRyOCUqfzps pshsIiZfsTUlXvQmEZ52XU XxSRuaSTlhZHJ6DHF1YWOn gYFjg5mqspggBKSpaUXaq6 SwqGY6aLFySMElD3Wlu05m RTQqYCOhsZRtpHC9UOQxeX 4gQTEtQTEwLlxwYXJccGFy LDGqZ8Mbm41zV79rRIjlqF LgINTfVjVXoo22xR4soPCd YOYcP3Gqj61diDOvB2egEV BlbiBmYWNlLCByZXByZXNl vsZtoNd2FJkmJWGvSXZ1DQ Npv8HtoJLdZNCkD7Hhv80h cNTgK2axZYAhgeMrELUuSH EbGAMnLAXftfIkkPj8GKtc FTDwIWW4AIyeTP4iCNPeqY RwuD8ocSevjlD5hYIfRGI1 lmrcK0MgDBTsETEuJFLrnW Tyr4HcsKR4oTMxLJWssdPZ OCdoOrPyzuMkSD19XOQzia Efd6QvlOrepjZfn6IklNOw e3EqCVSrJPK6YZjtAVTux9 hpbWFsIHRvIHRoZSBkaXN0 YR4mJOJaTKMjNQngIJMjFL BkRWA2IXVofLHfb2LhdHI6 cJInFVEeU0Cwg87oLR4fGO 65G21sNBWzsdUql3QkqKYa qa9lSURvHIJhnXT7FW7lZZ GdXKHzIOfgOPMlAWn5DJJk SFFkx5IbEQA4rhpaD2BbXB NjYXIgZGlzdGFsIHRvIGRp i4GbizBuTOCzxlBsQJTvEY XiRHPkfeYhjCr0AVmbWLLd JOw8HQTmbEXac5PexCT6jW ZcVVKbG4Lrg60yTN1gJJ89 T72mEQBgwkWly8HnkHOeiI K5THpfiR9ueZmpVDItl5Re bmRlZCBhcmVhXHBhciBBOT iaZI2es1nkhNXxwAggh9Fo M1AhCXQdsIAmVZOvMKBaCM BzljFzhTv1MFbcRZIjFSJj WtTQru2vxrEnCSJ3dT0lWU 9mIGludGVzdGluZSBhdHRh U2rrARW6rhSns3GilPCiAV BzdARmU5CdHAkmimYohvWf PZFgtVQfw8AnrNC4bURdDW HhvaJOYUQ1IUElhI8di3vq iBQqfWojlUinab3yEAPyOF csc3ijYDrqCIKzyWRjOFKu wrEewPkpdC4fLnNjVmUrEX xwbGFpblxmMVxmczIwIFNw ZWNpbWVuIEIgaXMgcmVjZW k3PNLkJfRzn9pzxMGyPUob RHR5wAEqRCQaITFjJJSnDQ 79C2HcqeQrVCpyUPelqtJc BeErITEvf2wrnfdvZT0pwG FzGUoeAEanTcoeHT2fBXGt fpWcb2UcFQ9yPPOxCW5hq3 NvtA9ahT8zZOXcwyJ8irVc UG81HPjkCX59OUrsMR01NS NtIGFuZCAyLjUgeCAxLjkg uDSkRxqjR13yLnZMi6YmZI LlafY5kpJzwrOdTooxBIO6 TYMgSOBuCXJdtETyvD0frv ZkdyKaoPKpkLT9IZQtCO37 bZNzmMorPF9vVqMsUIZpwi YGNL1UYptcyYRhL5NnTDUp shD7KJjqSWBiQVWwKNSgYP BzbWFsbGVyIGRvdWdobnV0 IGluIEIzLiBccGFyXHBhci DZBUM3ZQIfhlXhoRtnPGGQ SUWuLISuB4D7JPMzzKttPA DgMAS3rgGjBRGqI9QcOAEC CAACQ9JzLNHzSVzuUNYaWT ZzMTZcbGFuZzEwMzNcaGlj aFxmMVxkYmNoXGYxXGxvY2 zjKnMrW0SmZGJeYJLfT80z zPjujG1oNiBeEgJjWXnzCU HngHowuZzpbT7wBaSxCcGb MFxwbGFpblxmMVxmczIwXH Bhcn0= Embedded Images (test code = 7399639865) [facility] 16:04:Aan Ahn MD ? ? 04/06/2020 11:06 AMIntubationUrgency: emergent Difficult airway General Information and Staff Patient location during procedure: ORAnesthesiologist: Cynthia Herring MDResident/LIBERAL ARTS TEACHER: Dana Sampson DOPerformed: anesthesiologist and resident/[employer] TEACHER Indications and Patient ConditionIndications for airway management: [...] from glidescope to advance tube into airway. [facility]2020-[facility] 16:04:Ana Ahn MD ? ? 04/08/2020 ?5:11 AMIntubationUrgency: emergent Difficult airway General Information and Staff Patient location during procedure: ORAnesthesiologist: Cynthia Herring, MDResident/LIBERAL ARTS TEACHER: Dana Sampson DOPerformed: anesthesiologist and resident/[employer] TEACHER Indications and Patient ConditionIndications for airway management: [...] glidescope to advance tube into airway. Additional [id number] on VL by CA1, multiple attempts by CA1 with ETT with stylet and bougie, unable to pass ETT through glottis. BVM between attempts. Glidescope stylet with ETT used by faculty under VL, attempt x 1 by faculty, g1v, atraumatic.[facility] CenterXR [id number] 15:42:20 Large volume pneumoperitoneum. Continued gaseous distention and dilatation of the stomach and smallbowelfollowing total colectomy with ileoanal anastomosis may representpostoperative ileus. Findings regarding pneumoperitoneum were already communicated to [facility]. Preliminary Report Dictated by Resident: Bart [...] small bowel and issimilar to prior radiographs. [place] project over the midline in the lowerabdomen. [facility], Radiant Results Inft User [...] ileus.Findings regarding pneumoperitoneum were already communicated to [facility].Preliminary Report Dictated by Resident: Bart Klein reviewed this study and agree.Weston Damon MD., have reviewed this study andagree with theabove report. [facility] CenterType and Screen - ONCE [id number] 15:18:48 Test Item Value Reference Range Interpretation Comments ABO & RH (test code O POSITIVE Performe d at [facility] = 20) Laboratory Serv [facility] [address] [facility] s [address]Oym[place] Free: [phone] A No. [id number] IAT (test code = Negative Performed a t [facility] 1185) Laboratory [facility] Blood [facility] s [address]Nfns Free: [phone] A No. [id number] [facility] CenterXR CHEST 1 [id number] 15:09:51 1. 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 FINDINGS: Lines/tubes: Enteric tube c ourses over the midline and inferiorly beyondthe diaphragm and llrow-bu-pjyg. Left diaphragm is elevated with interval development [...] the midline and inferiorly beyondthe diaphragm and cyrsw-nf-mvyv. Left diaphragm is elevated with interval development [...] have reviewed this study and agree with theabovereport.[facility] [id number] 14:52:37Ana Syed MD ? ? 04/06/2020 ?9:53 [...] tolerated procedure well with no complications ? [facility] [id number] 14:52:37Ana Syed MD ? ? 04/06/2020 ?9:53 [...] no complications [id number] 14:51:Ana Blair MD ? ? 04/06/2020 ?9:52 [...] no complications and all wires accounted [facility] [id number] 14:51:Ana Blair MD ? ? 04/06/2020 ?9:52 [...] complications and all wires accounted for _ [facility] WITH [id number] 13:22:00 Test Item Value Reference Range Interpretation Comments WBC (test code = See_Comment LL [Automated 4507-2) message] The system which generated this result [...] RDW-SD (test code = 47.8 fL 38.5-51.6 00613-4) RDW-CV (test code = 14.6 % 12.1-15.4 788-0) PLT (test code = See_Comment [Automated 777-3) message] The system which generated this result transmitted reference range : 150 - 328 10*3/?L. The reference range was not used to interpret this result as normal/abnormal . MPV (test code = 12.1 fL 9.8-13 92469-4) NRBC/100 WBC (test See_Comment [Automat ed code = 5515792247) message] The system which generated this result transmitted reference range : 0.0 - 10.0 /100 WBCs. The reference range was not used to interpret this result as normal/abnormal . NRBC x10^3 (test code <0.01 See_Comment [Auto mated = 1683560282) message] The system which generated this result transmitted reference range : 10*3/?L. The reference range was not used to interpret this result as normal/abnormal . GRAN MAT (NEUT) % 71.6 % (test code = 770-8) IMM GRAN % (test code 0.90 % = 8741786969) LYMPH % (test code = 18.3 % 736-9) MONO % (test code = 9.2 % 5905-5) EOS % (test code = 0.0 % 713-8) BASO % (test code = 0.0 % 706-2) GRAN MAT x10^3(ANC) 0.78 10*3/uL 1.99-6.95 L (test code = 9548652612) IMM GRAN x10^3 (test <0.03 0-0.06 code = 0519252769) LYMPH x10^3 (test 0.20 10*3/uL 1.09-3.23 L code = 731-0) MONO x10^3 (test code 0.10 10*3/uL 0.36-1.02 L = 742-7) EOS x10^3 (test code <0.03 0.06-0.53 L = 711-2) BASO x10^3 (test code <0.03 0.01-0.09 = 704-7) GOLDEN CELLS (test code 2+ See_Comment A [Auto mated = 5190-9) message] The system which generated this result transmitted reference range : (none). The reference range was not used to interpret this result as normal/abnormal . BANDS (test code = MARKED INCREASED A 5038275663) Lab Interpretation Abnormal (test code = 43214-4) [facility] METABOLIC PANEL (NA, K, CL, CO2, GLUCOSE, BUN, CREATININE, CA)2020-04-06 12:38:00 Test Item Value Reference Range Interpretation Comments NA (test code = 134 mmol/L 135-145 L 1675767780) K (test code = 4.5 mmol/L 3.5-5 8378259780) CL (test code = 105 mmol/L 98-108 3158528040) CO2 TOTAL (test code = 18 mmol/L 23-31 L 1471567256) AGAP (test code = 2-16 0260706150) BUN (test code = 30 mg/dL 7-23 H 4475923315) GLUCOSE (test code = 117 mg/dL 70-110 H 9113660237) CREATININE (test code = 1.95 mg/dL 0.6-1.25 H 0211528063) CALCIUM (test code = 8.6 mg/dL 8.6-10.6 2409227877) eGFR Calculation mL/min/1.73m2 (Non-) (test code = 1315905773) eGFR Calculation mL/min/1.73m2 () (test code = 1240965647) GILBERTO (test code = GILBERTO) Association of [...] tests). Lab Interpretation Abnormal (test code = 21426-5) [facility] Test Item Value Reference Range Interpretation Comments MAGNESIUM (test code = 9514756820) 2.3 mg/dL 1.7-2.4 Lab Interpretation (test code = Normal 01987-8) [id number] 23:28:32 Prominent gaseous distention of small bowel [...] pelvis. Note: Left hemidiaphragm isnot fully within zhehd-qf-fggw. FINDINGS: Status post colectomy. Massive gaseous distention [...] and pelvis.Note: Left hemidiaphragm isnot fully within atbls-pr-ttys.FINDINGS:Status post colectomy.Massive gaseous distention of the stomach [...] this study and agree with theabove report. [facility] [id number] 23:22:45 Esophogastric tube tip projects over the [...] Bilateralhemidiaphragms and upper abdomen are not within dlrti-gm-wnsu. FINDINGS: The tipof the esophogastric tube projects [...] Bilateralhemidiaphragms and upper abdomen are not within jgjci-df-nwgz.FINDINGS:The tip of the esophogastric tube projects over [...] reviewed this study and agree with theabove report.[facility] (NA, K, CL, CO2, GLUCOSE, BUN, CREATININE, CA)2020-04-05 11:08:00 Test Item Value Reference Range Interpretation Comments NA (test code = 137 mmol/L 135-145 1666640042) K (test code = 4.4 mmol/L 3.5-5 6334494964) CL (test code = 104 mmol/L 98-108 6774984715) CO2 TOTAL (test code = 24 mmol/L 23-31 6748415510) AGAP (test code = 2-16 4638046848) BUN (test code = 10 mg/dL 7-23 1997272500) GLUCOSE (test code = 104 mg/dL 70-110 9734328539) CREATININE (test code 1.18 mg/dL 0.6-1.25 = 3722141531) CALCIUM (test code = 8.7 mg/dL 8.6-10.6 8483556353) eGFR Calculation mL/min/1.73m2 (Non-) (test code = 5821551862) eGFR Calculation mL/min/1.73m2 () (test code = 5027224707) GILBERTO (test code = GILBERTO) Association of [...] or urine or abnormalities in imaging tests). [facility] 11:08:00 Test Item Value Reference Range Interpretation Comments MAGNESIUM (test code = 7941428234) 2.3 mg/dL 1.7-2.4 Lab Interpretation (test code = Normal 78078-7) [facility] WITH [id number] 10:32:00 Test Item Value Reference Range Interpretation [...] RDW-SD (test code = 47.8 fL 38.5-51.6 32440-7) RDW-CV (test code = 14.6 % 12.1-15.4 788-0) PLT (test code = See_Comment [Automated 777-3) message] The sy stem which generated this result transmitted reference range : 150 - 328 10*3/ ?L. The reference r meredith was not used to interpret this result as normal/abnormal . MPV (test code = 11.6 fL 9.8-13 66478-8) NRBC/100 WBC (test See_Comment [Automat ed code = 1359898922) message] The system which generated this result transmitted reference range : 0.0 - 10.0 /100 WBCs. The refer ence range was not u sed to interpret th is result as normal/abnormal . NRBC x10^3 (test code <0.01 See_Comment [Auto mated = 7017914214) message] The s ystem which generated this result transmitted reference range : 10*3/?L. The reference range was not used to interpret this result as normal/abnormal . GRAN MAT (NEUT) % 82.4 % (test code = 770-8) IMM GRAN % (test code 0.30 % = 8310257304) LYMPH % (test code = 12.4 % 736-9) MONO % (test code = 4.5 % 5905-5) EOS % (test code = 0.2 % 713-8) BASO % (test code = 0.2 % 706-2) GRAN MAT x10^3(ANC) 5.12 10*3/uL 1.99-6.95 (test code = 5021761619) IMM GRAN x10^3 (test <0.03 0-0.06 code = 3906802334) LYMPH x10^3 (test code 0.77 10*3/uL 1.09-3.23 L = 731-0) MONO x10^3 (test code 0.28 10*3/uL 0.36-1.02 L = 742-7) EOS x10^3 (test code = <0.03 0.06-0.53 L 711-2) BASO x10^3 (test code <0.03 0.01-0.09 = 704-7) Lab Interpretation Abnormal (test code = 17547-9) [facility] METABOLIC PANEL (NA, K, CL, CO2, GLUCOSE, BUN, CREATININE, CA)2020-04-04 11:02:00 Test Item Value Reference Range Interpretation Comments NA (test code = 135 mmol/L 135-145 6448543554) K (test code = 4.4 mmol/L 3.5-5 Slight 9164168257) hemolysis CL (test code = 103 mmol/L 98-108 6368895292) CO2 TOTAL (test code 26 mmol/L 23-31 = 0139394270) AGAP (test code = 2-16 7817338523) BUN (test code = 7 mg/dL 7-23 Slight 8437370500) hemolysis GLUCOSE (test code = 119 mg/dL 70-110 H 9313147537) CREATININE (test code 0.95 mg/dL 0.6-1.25 = 5613083812) CALCIUM (test code = 8.3 mg/dL 8.6-10.6 L 3290417329) eGFR Calculation mL/min/1.73m2 (Non-) (test code = 0416933225) eGFR Calculation mL/min/1.73m2 () (test code = 6485434649) GILBERTO (test code = GILBERTO) Association of [...] tests). Lab Interpretation Abnormal (test code = 71620-7) [facility] 11:02:00 Test Item Value Reference Range Interpretation Comments MAGNESIUM (test code = 8293708074) 1.7 mg/dL 1.7-2.4 Lab Interpretation (test code = Normal 56094-3) [facility] [facility] WITH [id number] 10:31:00 Test Item Value Reference Range Interpretation [...] RDW-SD (test code = 46.5 fL 38.5-51.6 37556-9) RDW-CV (test code = 14.3 % 12.1-15.4 788-0) PLT (test code = See_Comment L [Automated 777-3) message] The sy stem which generated this result transmitted reference range : 150 - 328 10*3/ ?L. The reference r meredith was not used to interpret this result as normal/abnormal . MPV (test code = 11.2 fL 9.8-13 94588-7) NRBC/100 WBC (test See_Comment [Automat ed code = 9469121088) message] The system which generated this result transmitted reference range : 0.0 - 10.0 /100 WBCs. The refer ence range was not u sed to interpret th is result as normal/abnormal . NRBC x10^3 (test code <0.01 See_Comment [Auto mated = 1872478834) message] The s ystem which generated this result transmitted reference range : 10*3/?L. The reference range was not used to interpret this result as normal/abnormal . GRAN MAT (NEUT) % 76.7 % (test code = 770-8) IMM GRAN % (test code 0.30 % = 9826500332) LYMPH % (test code = 16.4 % 736-9) MONO % (test code = 6.2 % 5905-5) EOS % (test code = 0.2 % 713-8) BASO % (test code = 0.2 % 706-2) GRAN MAT x10^3(ANC) 5.12 10*3/uL 1.99-6.95 (test code = 1020456880) IMM GRAN x10^3 (test <0.03 0-0.06 code = 6872388620) LYMPH x10^3 (test code 1.09 10*3/uL 1.09-3.23 = 731-0) MONO x10^3 (test code 0.41 10*3/uL 0.36-1.02 = 742-7) EOS x10^3 (test code = <0.03 0.06-0.53 L 711-2) BASO x10^3 (test code <0.03 0.01-0.09 = 704-7) Lab Interpretation Abnormal (test code = 47511-4) [facility] WITH [id number] 11:04:00 Test Item Value Reference Range Interpretation [...] RDW-SD (test code = 45.6 fL 38.5-51.6 11283-9) RDW-CV (test code = 14.0 % 12.1-15.4 788-0) PLT (test code = See_Comment L [Automated 777-3) message] The sy stem which generated this result transmitted reference range : 150 - 328 10*3/ ?L. The reference r meredith was not used to interpret this result as normal/abnormal . MPV (test code = 11.2 fL 9.8-13 53461-0) NRBC/100 WBC (test See_Comment [Automat ed code = 6413169999) message] The system which generated this result transmitted reference range : 0.0 - 10.0 /100 WBCs. The refer ence range was not u sed to interpret th is result as normal/abnormal . NRBC x10^3 (test code <0.01 See_Comment [Auto mated = 4600582952) message] The s [employer] which generated this result transmitted reference range : 10*3/?L. The reference range was not used to interpret this result as normal/abnormal . GRAN MAT (NEUT) % 52.7 % (test code = 770-8) IMM GRAN % (test code 0.30 % = 8084178278) LYMPH % (test code = 34.6 % 736-9) MONO % (test code = 9.6 % 5905-5) EOS % (test code = 2.2 % 713-8) BASO % (test code = 0.6 % 706-2) GRAN MAT x10^3(ANC) 1.88 10*3/uL 1.99-6.95 L (test code = 8737823988) IMM GRAN x10^3 (test <0.03 0-0.06 code = 2116142348) LYMPH x10^3 (test code 1.23 10*3/uL 1.09-3.23 = 731-0) MONO x10^3 (test code 0.34 10*3/uL 0.36-1.02 L = 742-7) EOS x10^3 (test code = 0.08 10*3/uL 0.06-0.53 711-2) BASO x10^3 (test code <0.03 0.01-0.09 = 704-7) REACT LYMPHS (test Rare code = 3105464483) Lab Interpretation Abnormal (test code = 09843-6) [facility] METABOLIC PANEL (NA, K, CL, CO2, GLUCOSE, BUN, CREATININE, CA)2020-04-03 10:54:00 Test Item Value Reference Range Interpretation Comments NA (test code = 140 mmol/L 135-145 1153937516) K (test code = 3.9 mmol/L 3.5-5 2622328465) CL (test code = 107 mmol/L 98-108 1969282137) CO2 TOTAL (test code = 28 mmol/L 23-31 3922451677) AGAP (test code = 2-16 7586758812) BUN (test code = 4 mg/dL 7-23 L 9533208095) GLUCOSE (test code = 88 mg/dL 70-110 7503970352) CREATININE (test code = 0.96 mg/dL 0.6-1.25 3965649043) CALCIUM (test code = 8.6 mg/dL 8.6-10.6 0022145879) eGFR Calculation mL/min/1.73m2 (Non-) (test code = 1199658892) eGFR Calculation mL/min/1.73m2 () (test code = 4263222050) GILBERTO (test code = GILBERTO) Association of [...] tests). Lab Interpretation Abnormal (test code = 47176-8) [facility] 10:54:00 Test Item Value Reference Range Interpretation Comments MAGNESIUM (test code = 6996191794) 2.0 mg/dL 1.7-2.4 Lab Interpretation (test code = Normal 29051-9) [facility] CenterType and Screen - ONCE [id number] 23:40:25 Test Item Value Reference Range Interpretation Comments ABO & RH (test code O POSITIVE Performe d at [facility] = 20) Laboratory Serv [facility] Blood [facility]3 [address] [facility] s [address]Cnpv Free: [phone] A No. [id number] IAT (test code = Negative Performed a t [facility] 1185) Laboratory Serv [facility] Blood [facility]3 [address] [facility] s [address]Xadn Free: [phone] A No. [id number] [facility] CenterCBC WITH [id number] 11:21:00 Test Item Value Reference Range Interpretation [...] RDW-SD (test code = 45.8 fL 38.5-51.6 49661-5) RDW-CV (test code = 14.2 % 12.1-15.4 788-0) PLT (test code = See_Comment L [Automated 777-3) message] The sy stem which generated this result transmitted reference range : 150 - 328 10*3/ ?L. The reference r meredith was not used to interpret this result as normal/abnormal . MPV (test code = 10.6 fL 9.8-13 88706-2) NRBC/100 WBC (test See_Comment [Automat ed code = 4522354756) message] The system which generated this result transmitted reference range : 0.0 - 10.0 /100 WBCs. The refer ence range was not u sed to interpret th is result as normal/abnormal . NRBC x10^3 (test code <0.01 See_Comment [Auto mated = 7053150705) message] The s ystem which generated this result transmitted reference range : 10*3/?L. The reference range was not used to interpret this result as normal/abnormal . GRAN MAT (NEUT) % 46.4 % (test code = 770-8) IMM GRAN % (test code 0.30 % = 6950630297) LYMPH % (test code = 38.8 % 736-9) MONO % (test code = 10.5 % 5905-5) EOS % (test code = 3.3 % 713-8) BASO % (test code = 0.7 % 706-2) GRAN MAT x10^3(ANC) 1.41 10*3/uL 1.99-6.95 L (test code = 1504893210) IMM GRAN x10^3 (test <0.03 0-0.06 code = 9346840703) LYMPH x10^3 (test code 1.18 10*3/uL 1.09-3.23 [...] . Lab Interpretation Abnormal (test code = 64500-9) [facility] METABOLIC PANEL (NA, K, CL, CO2, GLUCOSE, BUN, CREATININE, CA)2020-04-02 11:05:00 Test Item Value Reference Range Interpretation Comments NA (test code = 139 mmol/L 135-145 0670953800) K (test code = 4.0 mmol/L 3.5-5 9093696078) CL (test code = 108 mmol/L 98-108 2774050456) CO2 TOTAL (test code = 25 mmol/L 23-31 0316792418) AGAP (test code = 2-16 6891594881) BUN (test code = 6 mg/dL 7-23 L 0627150694) GLUCOSE (test code = 99 mg/dL 70-110 3762695189) CREATININE (test code = 0.92 mg/dL 0.6-1.25 7727555226) CALCIUM (test code = 8.3 mg/dL 8.6-10.6 L 6444129633) eGFR Calculation mL/min/1.73m2 (Non-) (test code = 4437237658) eGFR Calculation mL/min/1.73m2 () (test code = 5319365772) GILBERTO (test code = GILBERTO) Association of [...] tests). Lab Interpretation Abnormal (test code = 60761-1) [facility]2020-[facility]-10 11:05:00 Test Item Value Reference Range Interpretation Comments MAGNESIUM (test code = 7293103883) 2.0 mg/dL 1.7-2.4 Lab Interpretation (test code = Normal 80600-9) [facility] CenterCOVID[facility] (ID NOW RAPID TESTING)2020-04-02 00:43:00 Test Item Value Reference Range Interpretation Comments SARS-CoV-2 Rapid ID NOW Not Detected Not Detected (test code = 50455-7) GILBERTO (test code = GILBERTO) ID NOW COVID-19 Assay is an isothermal nucleic acid amplification test intended for the qualitative detection of nucleic acid from SARS-CoV-2 viral RNA in nasopharyngeal ([employer] MODEL [employer]) specimens. It is used under Emergency Use [...] indicated. Lab Interpretation Normal (test code = 31280-3) [facility] CenterUrinalysis2020-08-08 11:39:00 Test Item Value Reference Range Interpretation Comments APPEARANCE (test code = Hazy Clear A 8005508319) COLOR (test code = Yellow Yellow 4550804807) PH (test code = 4.8-8.0 3210384991) SP GRAVITY (test code = 1.003-1.030 H 3790367865) GLU U QUAL (test code = Normal Normal 2361406272) BLOOD (test code = Negative Negative 0837454585) KETONES (test code = 5 mg/dL Negative A 2825726149) PROTEIN (test code = Negative Negative 2887-8) UROBILIN (test code = 2.0 mg/dL Normal A 8543523864) BILIRUBIN (test code = Negative Negative 9017231477) NITRITE (test code = Negative Negative 9209377996) LEUK ROGER (test code = Negative Negative 2866023684) RBC/HPF (test code = See_Comment [Autom ated message] 2353061280) The system [employer] generated this result transmit dain reference range : 0 - 3 HPF. The refe rence range was not u sed to interpret th is result as normal/abnormal . WBC/HPF (test code = See_Comment [Autom ated message] 9141604876) The system [employer] generated this result transmit dain reference range : 0 - 5 HPF. The refe rence range was not u sed to interpret th is result as normal/abnormal . BACTERIA (test code = Negative Negative 0313947049) CA OXALATE (test code = See_Comment H [Au tomated message] 3887504335) The system [employer] generated this result transmit dain reference range : <=1 HPF. The refere nce range was not u sed to interpret th is result as normal/abnormal . Lab Interpretation (test Abnormal code = 96594-2) [facility] CenterCT ABDOMEN PELVIS W [id number] 00:38:37 1. ?Massive air distention of the [...] focal loculated drainable fluidcollection.RL: 460END [facility]PORT [facility] (NA, K, CL, CO2, GLUCOSE, BUN, CREATININE, CA)2020-03-30 23:45:00 Test Item Value Reference Range Interpretation Comments NA (test code = 140 mmol/L 135-145 6663563751) K (test code = 4.3 mmol/L 3.5-5 7034118463) CL (test code = 101 mmol/L 98-108 4568532287) CO2 TOTAL (test code = 28 mmol/L 23-31 0544909098) AGAP (test code = 2-16 0527098916) BUN (test code = 24 mg/dL 7-23 H 3282908483) GLUCOSE (test code = 90 mg/dL 70-110 9486635540) CREATININE (test code = 1.29 mg/dL 0.6-1.25 H 5247457662) CALCIUM (test code = 9.4 mg/dL 8.6-10.6 8912883440) eGFR Calculation mL/min/1.73m2 (Non-) (test code = 8590179759) eGFR Calculation mL/min/1.73m2 () (test code = 7402206928) GILBERTO (test code = GILBERTO) Association of [...] tests). Lab Interpretation Abnormal (test code = 21504-8) [facility] 1 [id number] 23:00:46 No evidence for an acute cardiopulmonary [...] on the March 02, 2020 exam.RL: 3708 [facility] CenterTroponin [id number] 22:39:00 Test Item Value Reference Range Interpretation Comments TROPONIN I (test 0.008 ng/mL See_Comment [Automated code = 5790929716) message] The system which generated this result [...] ? Lab Interpretation Normal (test code = 26429-0) [facility] CenterN-TERMINAL [id number] 22:39:00 Test Item Value Reference Range Interpretation Comments NT-proBNP (test code 42 pg/mL See_Comment [Autom ated = 8705914413) message] The system which generated this result transmitted reference range : <=125. The reference range was not used to interpret this result as normal/abnormal . GILBERTO (test code = GILBERTO) Biotin has been reported to cause a negative bias, interpret results relative to patient's use of biotin. Lab Interpretation Normal (test code = 52417-3) [facility] CenterHepatic Function Panel (ALB, T.PRO, BILI T, BU/BC, ALT, AST, ALK PHOS)2020-03-30 22:27:00 Test Item Value Reference Range Interpretation Comments TOTAL BILI (test code = 1749217737) 0.5 mg/dL 0.1-1.1 BILI UNCON (test code = 5929081842) 0.3 mg/dL 0.1-1.1 BILI CONJ (test code = 2911282805) 0.0 mg/dL 0-0.3 T PROTEIN (test code = 9695162006) 6.7 g/dL 6.3-8.2 ALBUMIN (test code = 3441175937) 4.5 g/dL 3.5-5 ALK PHOS (test code = 6520104107) 57 U/L 34-122 ALTv (test code = 1742-6) 31 U/L 5-50 AST(SGOT) (test code = 9971050480) 38 U/L 13-40 Lab Interpretation (test code = Normal 98695-7) [facility] CenterLipase [id number] 22:27:00 Test Item Value Reference Range Interpretation Comments LIPASE (test code = 5982420312) 62 U/L 0-220 Lab Interpretation (test code = Normal 97866-1) [facility] CenteraPTT2020-08-07 22:25:00 Test Item Value Reference Range Interpretation Comments APTT Patient (test code = See_Comment [ Automated message] 3173-2) The system [employer] generated this result transmitted ref erence range: 26 - 36 Seconds. The re ference range was not u sed to interpret this result as normal/abnor mal. Lab Interpretation (test Normal code = 26438-6) [facility] CenterProthrombin Time (PT) / [id number] 22:25:00 Test Item Value Reference Range Interpretation Comments PROTIME PATIENT (test See_Comment [Auto mated message] code = 5964-2) The system [employer] generated this result transmitted ref erence range: 10.1 - 1 2.6 Seconds. The re ference range was not u sed to interpret this result as normal/abnor mal. INR (test code = 6301-6) Nor mal INR <1.1; Warfarin Therap eutic range 2.0 to 3. 0 or 2.5 to 3.5, dep ending upon the indica tions. Lab Interpretation (test Normal code = 97019-6) [facility] with [id number] 22:17:00 Test Item Value Reference Range Interpretation [...] RDW-SD (test code = 46.9 fL 38.5-51.6 04501-6) RDW-CV (test code = 14.3 % 12.1-15.4 788-0) PLT (test code = See_Comment [Automated 777-3) message] The sy stem which generated this result transmitted reference range : 150 - 328 10*3/ ?L. The reference r meredith was not used to interpret this result as normal/abnormal . MPV (test code = 10.7 fL 9.8-13 45949-9) NRBC/100 WBC (test See_Comment [Automat ed code = 5565977652) message] The system which generated this result transmitted reference range : 0.0 - 10.0 /100 WBCs. The refer ence range was not u sed to interpret th is result as normal/abnormal . NRBC x10^3 (test code <0.01 See_Comment [Auto mated = 0359960896) message] The s ystem which generated this result transmitted reference range : 10*3/?L. The reference range was not used to interpret this result as normal/abnormal . GRAN MAT (NEUT) % 51.7 % (test code = 770-8) IMM GRAN % (test code 0.40 % = 9980336202) LYMPH % (test code = 32.8 % 736-9) MONO % (test code = 12.4 % 5905-5) EOS % (test code = 2.1 % 713-8) BASO % (test code = 0.6 % 706-2) GRAN MAT x10^3(ANC) 2.76 10*3/uL 1.99-6.95 (test code = 4028998961) IMM GRAN x10^3 (test <0.03 0-0.06 code = 1392368194) LYMPH x10^3 (test code 1.75 10*3/uL 1.09-3.23 = 731-0) MONO x10^3 (test code 0.66 10*3/uL 0.36-1.02 = 742-7) EOS x10^3 (test code = 0.11 10*3/uL 0.06-0.53 711-2) BASO x10^3 (test code 0.03 10*3/uL 0.01-0.09 = 704-7) Lab Interpretation Abnormal (test code = 40313-3) [facility] with Tyrihsfupldq6909-91-94 10:26:00 Test Item Value Reference Range Interpretation [...] RDW-SD (test code = 46.3 fL 38.5-51.6 83425-7) RDW-CV (test code = 14.2 % 12.1-15.4 788-0) PLT (test code = See_Comment L [Automated 777-3) message] The sy stem which generated this result transmitted reference range : 150 - 328 10*3/ ?L. The reference r meredith was not used to interpret this result as normal/abnormal . MPV (test code = 10.6 fL 9.8-13 88777-7) NRBC/100 WBC (test See_Comment [Automat ed code = 1085296397) message] The system which generated this result transmitted reference range : 0.0 - 10.0 /100 WBCs. The refer ence range was not u sed to interpret th is result as normal/abnormal . NRBC x10^3 (test code <0.01 See_Comment [Auto mated = 6587942796) message] The s ystem which generated this result transmitted reference range : 10*3/?L. The reference range was not used to interpret this result as normal/abnormal . GRAN MAT (NEUT) % 51.3 % (test code = 770-8) IMM GRAN % (test code 0.30 % = 5544239949) LYMPH % (test code = 32.2 % 736-9) MONO % (test code = 12.7 % 5905-5) EOS % (test code = 3.0 % 713-8) BASO % (test code = 0.5 % 706-2) GRAN MAT x10^3(ANC) 1.89 10*3/uL 1.99-6.95 L (test code = 2507843449) IMM GRAN x10^3 (test <0.03 0-0.06 code = 4707541975) LYMPH x10^3 (test code 1.19 10*3/uL 1.09-3.23 = 731-0) MONO x10^3 (test code 0.47 10*3/uL 0.36-1.02 = 742-7) EOS x10^3 (test code = 0.11 10*3/uL 0.06-0.53 711-2) BASO x10^3 (test code <0.03 0.01-0.09 = 704-7) Lab Interpretation Abnormal (test code = 37238-4) [facility] CenterMagnesium [id number] 10:17:00 Test Item Value Reference Range Interpretation Comments MAGNESIUM (test code = 0882095607) 2.0 mg/dL 1.7-2.4 Lab Interpretation (test code = Normal 02865-6) [facility] Metabolic Panel (NA, K, CL, CO2, GLUCOSE, BUN, CREATININE, CA)2020-03-26 10:17:00 Test Item Value Reference Range Interpretation Comments NA (test code = 136 mmol/L 135-145 2953183291) K (test code = 4.6 mmol/L 3.5-5 Slight 4339217396) hemolysis CL (test code = 109 mmol/L 98-108 H 4154331821) CO2 TOTAL (test code 26 mmol/L 23-31 = 7171376537) AGAP (test code = 2-16 L 3145538721) BUN (test code = 22 mg/dL 7-23 Slight 7157288448) hemolysis GLUCOSE (test code = 82 mg/dL 70-110 2372773815) CREATININE (test code 0.88 mg/dL 0.6-1.25 = 2145429795) CALCIUM (test code = 8.1 mg/dL 8.6-10.6 L 7446554645) eGFR Calculation mL/min/1.73m2 (Non-) (test code = 9121136522) eGFR Calculation mL/min/1.73m2 () (test code = 5345621061) GILBERTO (test code = GILBERTO) Association of [...] tests). Lab Interpretation Abnormal (test code = 60262-1) [facility] CenterLactic Acid Whole [id number] 04:22:00 Test Item Value Reference Range Interpretation Comments LACTIC ACID (test code = 1.52 mmol/L 0058398082) [facility] CenterPhosphorus [id number] 03:37:00 Test Item Value Reference Range Interpretation Comments PHOSPHORUS (test code = 5122875769) 4.6 mg/dL 2.5-5 Lab Interpretation (test code = Normal 04997-2) [facility] CenterMAGNESIUM2020-08-03 03:37:00 Test Item Value Reference Range Interpretation Comments MAGNESIUM (test code = 3327388176) 2.3 mg/dL 1.7-2.4 Lab Interpretation (test code = Normal 36057-0) [facility] CenterCOVID[facility] (ID NOW RAPID TESTING)2020-03-26 02:24:00 Test Item Value Reference Range Interpretation Comments SARS-CoV-2 Rapid ID NOW Not Detected Not Detected (test code = 93173-9) GILBERTO (test code = GILBERTO) ID NOW COVID-19 Assay is an isothermal nucleic acid amplification test intended for the qualitative detection of nucleic acid from SARS-CoV-2 viral RNA in nasopharyngeal ([employer]) specimens. It is used under Emergency Use [...] indicated. Lab Interpretation Normal (test code = 47542-2) [facility] CenterCT ABDOMEN PELVIS W [id number] 01:33:06 Redemonstration of severe dilatation of the [...] No focal bowel inflammation or wall thickening.. [facility]Ba[facility] (NA, K, CL, CO2, GLUCOSE, BUN, CREATININE, CA)2020-03-26 00:57:00 Test Item Value Reference Range Interpretation Comments NA (test code = 139 mmol/L 135-145 1199779330) K (test code = 4.4 mmol/L 3.5-5 2560475653) CL (test code = 105 mmol/L 98-108 1018191009) CO2 TOTAL (test code = 29 mmol/L 23-31 5002088007) AGAP (test code = 2-16 1461919350) BUN (test code = 28 mg/dL 7-23 H 4475523196) GLUCOSE (test code = 84 mg/dL 70-110 9295359780) CREATININE (test code = 1.19 mg/dL 0.6-1.25 8241715306) CALCIUM (test code = 8.9 mg/dL 8.6-10.6 4485349769) eGFR Calculation mL/min/1.73m2 (Non-) (test code = 6582977209) eGFR Calculation mL/min/1.73m2 () (test code = 1247094999) GILBERTO (test code = GILBEROT) Association of [...] tests). Lab Interpretation Abnormal (test code = 66811-2) [facility] CenterHepatic Function Panel (ALB, T.PRO, BILI T, BU/BC, ALT, AST, ALK PHOS)2020-03-26 00:57:00 Test Item Value Reference Range Interpretation Comments TOTAL BILI (test code = 4355373808) 0.2 mg/dL 0.1-1.1 BILI UNCON (test code = 6420131151) 0.0 mg/dL 0.1-1.1 L BILI CONJ (test code = 4131074746) 0.0 mg/dL 0-0.3 T PROTEIN (test code = 2694464766) 6.2 g/dL 6.3-8.2 L ALBUMIN (test code = 7078818012) 4.1 g/dL 3.5-5 ALK PHOS (test code = 2583630435) 56 U/L 34-122 ALTv (test code = 1742-6) 24 U/L 5-50 AST(SGOT) (test code = 6048803859) 28 U/L 13-40 Lab Interpretation (test code = Abnormal 57707-3) [facility] CenterCBC with Wolrsockthgr8365-05-10 00:47:00 Test Item Value Reference Range Interpretation [...] RDW-SD (test code = 45.9 fL 38.5-51.6 34510-7) RDW-CV (test code = 14.0 % 12.1-15.4 788-0) PLT (test code = See_Comment [Automated 777-3) message] The sy stem which generated this result transmitted reference range : 150 - 328 10*3/ ?L. The reference r meredith was not used to interpret this result as normal/abnormal . MPV (test code = 10.9 fL 9.8-13 12734-9) NRBC/100 WBC (test See_Comment [Automat ed code = 1849293372) message] The system which generated this result transmitted reference range : 0.0 - 10.0 /100 WBCs. The refer ence range was not u sed to interpret th is result as normal/abnormal . NRBC x10^3 (test code <0.01 See_Comment [Auto mated = 6241439282) message] The s ystem which generated this result transmitted reference range : 10*3/?L. The reference range was not used to interpret this result as normal/abnormal . GRAN MAT (NEUT) % 49.8 % (test code = 770-8) IMM GRAN % (test code 0.20 % = 4353678605) LYMPH % (test code = 32.0 % 736-9) MONO % (test code = 14.3 % 5905-5) EOS % (test code = 3.0 % 713-8) BASO % (test code = 0.7 % 706-2) GRAN MAT x10^3(ANC) 2.29 10*3/uL 1.99-6.95 (test code = 3804416941) IMM GRAN x10^3 (test <0.03 0-0.06 code = 9272073717) LYMPH x10^3 (test code 1.47 10*3/uL 1.09-3.23 = 731-0) MONO x10^3 (test code 0.66 10*3/uL 0.36-1.02 = 742-7) EOS x10^3 (test code = 0.14 10*3/uL 0.06-0.53 711-2) BASO x10^3 (test code 0.03 10*3/uL 0.01-0.09 = 704-7) Lab Interpretation Abnormal (test code = 99950-2) [facility] CenterMagnesium [id number] 05:23:00 Test Item Value Reference Range Interpretation Comments MAGNESIUM (test code = 2089048718) 2.1 mg/dL 1.7-2.4 Lab Interpretation (test code = Normal 58513-2) [facility] CenterCOVID[facility] (ID NOW RAPID TESTING)2020-03-03 04:45:00 Test Item Value Reference Range Interpretation Comments SARS-CoV-2 Rapid ID NOW Not Detected Not Detected (test code = 20161-9) GILBERTO (test code = GILBERTO) ID NOW COVID-19 Assay is an isothermal nucleic acid amplification test intended for the qualitative detection of nucleic acid from SARS-CoV-2 viral RNA in nasopharyngeal ([employer]) specimens. It is used under Emergency Use [...] indicated. Lab Interpretation Normal (test code = 60535-1) [facility] CenterProthrombin Time / [id number] 04:40:00 Test Item Value Reference Range Interpretation Comments PROTIME PATIENT (test See_Comment [Auto mated message] code = 5964-2) The system [employer] generated this result transmitted ref erence range: 10.1 - 1 2.6 Seconds. The re ference range was not u sed to interpret this result as normal/abnor mal. INR (test code = 6301-6) Nor mal INR <1.1; Warfarin Therap eutic range 2.0 to 3. 0 or 2.5 to 3.5, dep ending upon the indica tions. Lab Interpretation (test Normal code = 17526-2) [facility] CenteraPTT2020-07-11 04:40:00 Test Item Value Reference Range Interpretation Comments APTT Patient (test code = See_Comment [ Automated message] 3173-2) The system [employer] generated this result transmitted ref erence range: 26 - 36 Seconds. The re ference range was not u sed to interpret this result as normal/abnor mal. Lab Interpretation (test Normal code = 78444-7) [facility] [id number] 04:31:00 Test Item Value Reference Range Interpretation Comments PHOSPHORUS (test code = 7949901889) 4.0 mg/dL 2.5-5 Lab Interpretation (test code = Normal 16684-8) [facility] [id number] 02:54:09 Impression: No radiographic evidence for acute cardiopulmonary disease. No radiographic evidence forpneumoperitoneum. Marked gaseous distention of predominantly large bowel loops in the abdomenand pelvis, similar to prior CT of 02/26/2020. On that CT, there was atransition in the distal descending colon, without mass lesion or definitesigmoid volvulus appreciated. RL: 460 AFC: 93572 Indication: Diffuse abdominal pain, obstructionComparison: CT the [...] lesion or definitesigmoid volvulus appreciated. RL: 460AF: 52582Ukjvbtqmbaasmo signed by Angeli Carrillo MD, PhD at 03/02/2020 9:54 PM [facility] 01:50:00 Test Item Value Reference Range Interpretation Comments APPEARANCE (test code = Hazy Clear A 7783224765) COLOR (test code = Tahira Yellow A 2022758065) PH (test code = 4.8-8.0 0331759258) SP GRAVITY (test code = 1.003-1.030 8177058718) GLU U QUAL (test code = Normal Normal 9076217814) BLOOD (test code = Negative Negative 8978540644) KETONES (test code = 5 mg/dL Negative A 5255434803) PROTEIN (test code = Negative Negative 2887-8) UROBILIN (test code = 2.0 mg/dL Normal A 2788970804) BILIRUBIN (test code = Negative Negative 5681391870) NITRITE (test code = Negative Negative 1153638552) LEUK ROGER (test code = Negative Negative 2895922885) RBC/HPF (test code = See_Comment [Autom ated message] 7913624075) The system [employer] generated this result transmit dain reference range : 0 - 3 HPF. The refe rence range was not u sed to interpret th is result as normal/abnormal . WBC/HPF (test code = See_Comment [Autom ated message] 9270654564) The system [employer] generated this result transmit dain reference range : 0 - 5 HPF. The refe rence range was not u sed to interpret th is result as normal/abnormal . BACTERIA (test code = Negative Negative 0390819209) MUCOUS (test code = Slight Negative LPF A 8474370528) SQ EPITH (test code = <1 See_Comment [Auto mated message] 8809994336) The system [employer] generated this result transmit dain reference range : <=2 HPF. The refere nce range was not u sed to interpret th is result as normal/abnormal . CA OXALATE (test code = See_Comment H [Au tomated message] 9160559529) The system [employer] generated this result transmit dain reference range : <=1 HPF. The refere nce range was not u sed to interpret th is result as normal/abnormal . SPERM (test code = See_Comment [Automat ed message] 6780238451) The system [employer] generated this result transmit dain reference range : <=1 HPF. The refere nce range was not u sed to interpret th is result as normal/abnormal . Lab Interpretation (test Abnormal code = 81008-3) [facility] Metabolic Panel (NA, K, CL, CO2, GLUCOSE, BUN, CREATININE, CA)2020-03-03 01:44:00 Test Item Value Reference Range Interpretation Comments NA (test code = 140 mmol/L 135-145 0578000284) K (test code = 4.1 mmol/L 3.5-5 3566556115) CL (test code = 106 mmol/L 98-108 0988563365) CO2 TOTAL (test code = 25 mmol/L 23-31 3502958891) AGAP (test code = 2-16 0508302073) BUN (test code = 17 mg/dL 7-23 0877164882) GLUCOSE (test code = 91 mg/dL 70-110 7350314000) CREATININE (test code 1.13 mg/dL 0.6-1.25 = 7597596856) CALCIUM (test code = 9.0 mg/dL 8.6-10.6 0383436559) eGFR Calculation mL/min/1.73m2 (Non-) (test code = 2256345698) eGFR Calculation mL/min/1.73m2 () (test code = 2130958464) GILBERTO (test code = GILBERTO) Association of [...] or urine or abnormalities in imaging tests). [facility] (ALB, T.PRO, BILI T, BU/BC, ALT, AST, ALK PHOS)2020-03-03 01:44:00 Test Item Value Reference Range Interpretation Comments TOTAL BILI (test code = 5434773742) 0.4 mg/dL 0.1-1.1 BILI UNCON (test code = 5436599239) 0.4 mg/dL 0.1-1.1 BILI CONJ (test code = 6620350604) 0.0 mg/dL 0-0.3 T PROTEIN (test code = 0517329243) 6.3 g/dL 6.3-8.2 ALBUMIN (test code = 5868273339) 4.2 g/dL 3.5-5 ALK PHOS (test code = 8900261721) 43 U/L 34-122 ALTv (test code = 1742-6) 20 U/L 5-50 AST(SGOT) (test code = 0722501396) 26 U/L 13-40 Lab Interpretation (test code = Normal 94731-3) [facility] CenterCB WITH [id number] 01:37:00 Test Item Value Reference Range Interpretation [...] RDW-SD (test code = 45.0 fL 38.5-51.6 00073-0) RDW-CV (test code = 13.7 % 12.1-15.4 788-0) PLT (test code = See_Comment [Automated 777-3) message] The sy stem which generated this result transmitted reference range : 150 - 328 10*3/ ?L. The reference r meredith was not used to interpret this result as normal/abnormal . MPV (test code = 11.3 fL 9.8-13 44143-3) NRBC/100 WBC (test See_Comment [Automat ed code = 9247789702) message] The system which generated this result transmitted reference range : 0.0 - 10.0 /100 WBCs. The refer ence range was not u sed to interpret th is result as normal/abnormal . NRBC x10^3 (test code <0.01 See_Comment [Auto mated = 5660959089) message] The s ystem which generated this result transmitted reference range : 10*3/?L. The reference range was not used to interpret this result as normal/abnormal . GRAN MAT (NEUT) % 53.2 % (test code = 770-8) IMM GRAN % (test code 0.20 % = 2521113504) LYMPH % (test code = 34.5 % 736-9) MONO % (test code = 9.7 % 5905-5) EOS % (test code = 1.8 % 713-8) BASO % (test code = 0.6 % 706-2) GRAN MAT x10^3(ANC) 2.69 10*3/uL 1.99-6.95 (test code = 9064010485) IMM GRAN x10^3 (test <0.03 0-0.06 code = 7415914537) LYMPH x10^3 (test code 1.74 10*3/uL 1.09-3.23 = 731-0) MONO x10^3 (test code 0.49 10*3/uL 0.36-1.02 = 742-7) EOS x10^3 (test code = 0.09 10*3/uL 0.06-0.53 711-2) BASO x10^3 (test code 0.03 10*3/uL 0.01-0.09 = 704-7) Lab Interpretation Abnormal (test code = 01855-2) [facility] CenterL[facility] Whole [id number] 01:28:00 Test Item Value Reference Range Interpretation Comments LACTIC ACID (test code = 1.62 mmol/L 3759712981) [facility] CenterDRUG PANEL 2 [id number] 22:13:00 Test Item Value Reference Range Interpretation Comments AMPHET (test code = Negative Negative 1422244543) LOS U (test code = Negative Negative 9576272800) BENZO U (test code = Negative Negative 7209382761) Cocaine Metabolite (test Negative Negative code = 2374588380) METHADONE (test code = Negative Negative 6342891912) OPIATES (test code = Negative Negative 9562640597) PCP (test code = Negative Negative 4704311487) THC (test code = Negative Negative 8079691765) GILBERTO (test code = GILBERTO) Urine Drug [...] testing). Lab Interpretation (test Normal code = 95595-6) [facility] CenterTHYROID STIMULATING [id number] 19:02:00 Test Item Value Reference Range Interpretation Comments TSH (test code = See_Comment [Automated message] 1652384937) The system [employer] generated this result transmitted ref erence range: 0.45 - 4 .70 mIU/L. The refe rence range was not u sed to interpret this result as normal/abnor mal. Lab Interpretation (test Normal code = 25229-9) [facility] [id number] 18:49:00 Test Item Value Reference Range Interpretation Comments FREE T3 (test code = 8739051697) 2.56 pg/mL 2.77-5.27 L Lab Interpretation (test code = Abnormal 26076-8) [facility] [id number] 18:49:00 Test Item Value Reference Range Interpretation Comments FREE T4 (test code = See_Comment [Autom ated message] 5545148425) The system [employer] generated this result transmitted ref erence range: 0.78 - 2 .20 ng/dL:. The ref erence range was not u sed to interpret this result as normal/abnor mal. Lab Interpretation (test Normal code = 10780-0) [facility] CenterCT [facility]BD[facility]EN PELVIS W [id number] 20:56:47 Persistent marked severe dilatation of the [...] No focal hepatic lesions. Normal contour. Hepatomegaly, qgbevxgcb38.7 cm, in the craniocaudal dimension. Diffuse hypoattenuation [...] No focal hepatic lesions. Normal contour. Hepatomegaly, tpngpqaww68.7 cm, in the craniocaudal dimension. Diffuse hypoattenuation [...] this study and agree withthe above report. [facility] CenterCOVID[facility] (ID NOW RAPID TESTING)2020-02-26 07:03:00 Test Item Value Reference Range Interpretation Comments SARS-CoV-2 Rapid ID NOW Not Detected Not Detected (test code = 33277-5) GILBERTO (test code = GILBERTO) ID NOW COVID-19 Assay is an isothermal nucleic acid amplification test intended for the qualitative detection of nucleic acid from SARS-CoV-2 viral RNA in nasopharyngeal ([employer]DEL [employer]) specimens. It is used under Emergency Use [...] indicated. Lab Interpretation Normal (test code = 43701-5) [facility] CenterXR ABDOMEN ACUTE [id number] 05:00:33 Impression: No radiographic evidence for acute cardiopulmonary disease. Marked gaseous distention ofthe colon, with a relative paucity of gas inthe distal sigmoid colon and rectum. This may reflect pseudoobstruction,but mechanical distal colonic obstruction cannot be excluded. RL: 460 AFC: 44728 Ordering physician: SABI Briggsdication: Abdominal distention Comparison: [...] in the distal sigmoid colon and rectum. [facility], Radiant Results Inft User [...] distal colonic obstruction cannot be excluded.RL: 460AFC: 67575Tksiznletexodb signed by Angeli Carrillo MD, PhD at 02/26/2020 12:00 [facility] Metabolic Panel (NA, K, CL, CO2, GLUCOSE, BUN, CREATININE, CA)2020-02-26 04:03:00 Test Item Value Reference Range Interpretation Comments NA (test code = 142 mmol/L 135-145 3239852086) K (test code = 4.1 mmol/L 3.5-5 3032945829) CL (test code = 107 mmol/L 98-108 9545105924) CO2 TOTAL (test code = 29 mmol/L 23-31 7299808251) AGAP (test code = 2-16 2444643804) BUN (test code = 13 mg/dL 7-23 4578171486) GLUCOSE (test code = 82 mg/dL 70-110 9542338363) CREATININE (test code 1.14 mg/dL 0.6-1.25 = 1782314237) CALCIUM (test code = 9.5 mg/dL 8.6-10.6 3688135453) eGFR Calculation mL/min/1.73m2 (Non-) (test code = 2285818299) eGFR Calculation mL/min/1.73m2 () (test code = 7498345899) GILBERTO (test code = GILBERTO) Association of [...] or urine or abnormalities in imaging tests). [facility] (ALB, T.PRO, BILI T, BU/BC, ALT, AST, ALK PHOS)2020-02-26 04:03:00 Test Item Value Reference Range Interpretation Comments TOTAL BILI (test code = 8627157582) 0.5 mg/dL 0.1-1.1 BILI UNCON (test code = 9572672156) 0.5 mg/dL 0.1-1.1 BILI CONJ (test code = 7838853413) 0.0 mg/dL 0-0.3 T PROTEIN (test code = 9283985240) 6.2 g/dL 6.3-8.2 L ALBUMIN (test code = 0825286104) 4.2 g/dL 3.5-5 ALK PHOS (test code = 7040724666) 40 U/L 34-122 ALTv (test code = 1742-6) 20 U/L 5-50 AST(SGOT) (test code = 3762882450) 26 U/L 13-40 Lab Interpretation (test code = Abnormal 35516-6) [facility] CenterLipase [id number] 04:03:00 Test Item Value Reference Range Interpretation Comments LIPASE (test code = 3104899433) 57 U/L 0-220 Lab Interpretation (test code = Normal 23842-6) [facility] CenterLactic Acid Whole [id number] 03:52:00 Test Item Value Reference Range Interpretation Comments LACTIC ACID (test code = 1.66 mmol/L 0.5-2.2 9476583223) [facility] CenterCBC WITH [id number] 03:47:00 Test Item Value Reference Range Interpretation [...] RDW-SD (test code = 45.1 fL 38.5-51.6 31713-4) RDW-CV (test code = 13.7 % 12.1-15.4 788-0) PLT (test code = See_Comment [Automated 777-3) message] The sy stem which generated this result transmitted reference range : 150 - 328 10*3/ ?L. The reference r meredith was not used to interpret this result as normal/abnormal . MPV (test code = 10.7 fL 9.8-13 53820-0) NRBC/100 WBC (test See_Comment [Automat ed code = 6343481233) message] The system which generated this result transmitted reference range : 0.0 - 10.0 /100 WBCs. The refer ence range was not u sed to interpret th is result as normal/abnormal . NRBC x10^3 (test code <0.01 See_Comment [Auto mated = 0174214093) message] The s ystem which generated this result transmitted reference range : 10*3/?L. The reference range was not used to interpret this result as normal/abnormal . GRAN MAT (NEUT) % 63.1 % (test code = 770-8) IMM GRAN % (test code 0.40 % = 1821420090) LYMPH % (test code = 25.1 % 736-9) MONO % (test code = 9.9 % 5905-5) EOS % (test code = 1.1 % 713-8) BASO % (test code = 0.4 % 706-2) GRAN MAT x10^3(ANC) 3.52 10*3/uL 1.99-6.95 (test code = 8164446189) IMM GRAN x10^3 (test <0.03 0-0.06 code = 6761988642) LYMPH x10^3 (test code 1.40 10*3/uL 1.09-3.23 = 731-0) MONO x10^3 (test code 0.55 10*3/uL 0.36-1.02 = 742-7) EOS x10^3 (test code = 0.06 10*3/uL 0.06-0.53 711-2) BASO x10^3 (test code <0.03 0.01-0.09 = 704-7) Lab Interpretation Abnormal (test code = 06913-2) [facility]- [facility]BD[facility]EN 1 [id number] 12:53:00 Name: DORA MCNEILL [facility] : 1970 Age/S: 50 / M [address] Unit #: [id number] Loc: [place] [address] 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 Acct: [id number] Dis Date: Status: ADM IN PHONE #: [phone] Exam Date: 02/25/2020 1036 FAX #: Reason: abdominal distention EXAMS: CPT: [id number] XR ABDOMEN 1 V 21165 Fluoro Time: DAP (Gy m2): Air Kerma [...] PAGE 1 Signed Report [facility] [place] [facility] 1970 Age/S: 50 / M [address] Unit #: [id number] Loc: [place] [address] 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 Acct: [id number] Dis Date: Status: ADM IN PHONE #: [phone] Exam Date: 02/25/2020 1036 FAX #: Reason: abdominal distention EXAMS: CPT: [id number] XR ABDOMEN 1 V 83114 Fluoro Time: DAP (Gy m2): Air Kerma (mGy): <Continued&gt ; Technologist: Nichole Dill RT(R) Trnscb Date/Time: 02/25/2020 (568) tDARWINR.EFM1 Orig Print D/T: S: 02/25/2020 (2148) PAGE 2 Signed Report COMPREHENSIVE METABOLIC [id number] 08:20:00 Test Item Value Reference Range Interpretation [...] 50-136 L TOTAL (test code = ALKP) [id number] 08:20:00 Test Item Value Reference Range Interpretation Comments MAGNESIUM (test code = MAG) 2.2 MG/DL 1.8-2.4 N THYROID STIMULATING [id number] 08:20:00 Test Item Value Reference Range Interpretation Comments THYROID STIMULATING HORMONE 5.430 mcIU/ML 0.340-4.820 H (test code = TSH) CBC W/AUTO [id number] 07:55:00 Test Item Value Reference Range Interpretation [...] N NRBC#) UA RFLX MICR CULT IF [id number] 12:29:00 Test Item Value Reference Range Interpretation [...] culture: Suprapubic PainUA RFLX MICR CULT IF [id number] 12:29:00 Test Item Value Reference Range Interpretation [...] for culture: Suprapubic PainCOVID 19 Asymptomatic IH [id number] 22:09:00 Test Item Value Reference Range Interpretation [...] tent with COVID-19. - CT ABD PELVIS W/OTDL8024-91-20 21:10:00 Name: OPALDORA ADAMIC [facility] : 1970 Age/S: 50 / M [address] Unit #: [id number] Loc: [place] [address] Phys: Evin Castellanos MD Acct: [id number] Dis Date: Status: REG ER PHONE #: [phone] Exam Date: 02/23/20202047 FAX #: Reason: diffuse abdomen pain and distention EXAMS: CPT: [id number] CT ABD PELVIS W/CONT 46991 EXAM: - CT ABD PELVIS W/CONT LOCATION: [...] 1 Signed Report (CONTINUED) Name: DORA MCNEILL [facility] : 1970 Age/S: 50 / M [address] Unit #: [id number] Loc: [place] [address] Phys: Evin Castellanos MD Acct: [id number] Dis Date: Status: REG ER PHONE #: [phone] Exam Date: 02/23/20202047 FAX #: Reason: diffuse abdomen pain and distention EXAMS: CPT: [id number] CTABD PELVIS W/CONT 51437 <Continued> CT. No bowel wall thickening or [...] by: Marybel José M.D. CC: Susana Meza [employer]DEL [employer]; Carl Luevano MD Technologist:Rudy Zuniga, RT(R)(CT)(MRI) CTDI: DLP: Trnscb Date/Time: 02/23/2020 (2109) t.SDR.TH15 Orig Print D/T: S: 02/23/2020 (2112) PAGE 2 Signed Report- XR CHEST 1 [id number] 21:03:00 Name: DORA MCNEILL [facility] : 1970 Age/S: 50 / M [address] Unit #: [id number] Loc: [place] [address] Phys: Evin Castellanos MD Acct: [id number] Dis Date: Status: REG ER PHONE #: [phone] Exam Date: 02/23/20202055 FAX #: Reason: Code Sepsis EXAMS: CPT: [id number] XR CHEST 1 V 66740 Fluoro Time: DAP (Gy m2): Air Kerma [...] by: Monica Quijano MD CC: Susana Meza [employer] MODEL [employer]; Carl Luevano MD PAGE 1 Signed Report Name: DORA MCNEILL [facility] : 1970 Age/S: 50 / M [address] Unit #: [id number] Loc: [place] [address] Phys: Evin Castellanos MD Acct: [id number] Dis Date: Status: REG ER PHONE #: [phone] Exam Date: 02/23/20202055 FAX #: Reason: Code Sepsis EXAMS: CPT:[id number] XR CHEST 1 V 18704 Fluoro Time: DAP (Gy m2): Air Kerma [...] 8.5-10.1 N Completed by Nursing: NOHEPATIC FUNCTION [id number] 20:02:00 Test Item Value Reference Range Interpretation [...] N code = ALKP) Completed by Nursing: [id number] 20:02:00 Test Item Value Reference Range Interpretation Comments LIPASE (test code = LIP) 97 Unit/L 114-286 L Completed by Nursing: [id number]-Y4796-73-02 20:02:00 Test Item Value Reference Range Interpretation [...] brittani yby method. Completed by Nursing: NOLACTIC [id number] 19:59:00 Test Item Value Reference Range Interpretation Comments LACTIC ACID (test code = LACT) 1.2 mmol/L 0.4-2.0 N CBC W/AUTO [id number] 19:46:00 Test Item Value Reference Range Interpretation [...] CRITERIA = MDIFF) - XR ABDOMEN 2 [id number] 06:22:00 [facility] [place] [facility] 1970 Age/S: 50 / M [address] Unit #: [id number] Loc: [place] [address] Phys: Leonidas Robertson MD Acct: [id number] Dis Date: Status: ADM IN PHONE #: [phone] Exam Date: 02/19/2020 0440 FAX #: Reason: megacolon EXAMS: CPT: [id number] XR ABDOMEN 2 V 57804 Fluoro Time: DAP (Gy m2): Air Kerma [...] PAGE 1 Signed Report Name: DORA MCNEILL [place] : 1970 Age/S: 50 / M [address] Unit #: [id number] Loc: [place] [address] Phys: Leonidas Robertson MD Acct: [id number] Dis Date: Status: ADM IN PHONE #: [phone] Exam Date: 02/19/2020 0440 FAX #: Reason: megacolon EXAMS: CPT: [id number] XR ABDOMEN 2 V 66830 Fluoro Time: DAP (Gy m2): Air Kerma (mGy): <Continued> Technologist: Carrie Barnett, RT(R)(CT) Trnscb Date/Time: 02/19/2020 (0622) GarettAL7 Orig Print D/T:S: 02/19/2020 (6838) PAGE 2 Signed ReportBASIC METABOLIC [id number] 05:52:00 Test Item Value Reference Range Interpretation [...] CA) 8.5 MG/DL 8.5-10.1 N CBC W/AUTO [id number] 05:40:00 Test Item Value Reference Range Interpretation [...] NO DIFF/SCN CRITERIA = MDIFF) BASIC METABOLIC [id number] 06:52:00 Test Item Value Reference Range Interpretation [...] CA) 8.3 MG/DL 8.5-10.1 L CBC W/AUTO [id number] 06:39:00 Test Item Value Reference Range Interpretation [...] DIFF/SCN CRITERIA = MDIFF) Coronavirus 2019 nCoV Raewytl3072-95-13 05:35:00 Test Item Value Reference Range Interpretation [...] NA (test code = 139 mmol/L 135-145 1903003670) K (test code = 4.3 mmol/L 3.5-5 1124440986) CL (test code = 105 mmol/L 98-108 1421458177) CO2 TOTAL (test code = 30 mmol/L 23-31 1748583544) AGAP (test code = 2-16 3301523660) BUN (test code = 6 mg/dL 7-23 L 9127048217) GLUCOSE (test code = 94 mg/dL 70-110 1631287123) CREATININE (test code = 1.07 mg/dL 0.6-1.25 5538110400) CALCIUM (test code = 9.3 mg/dL 8.6-10.6 2277870918) eGFR Calculation mL/min/1.73m2 (Non-) (test code = 7107758347) eGFR Calculation mL/min/1.73m2 () (test code = 7692606518) GILBERTO (test code = GILBERTO) Association of [...] tests). Lab Interpretation Abnormal (test code = 49163-2) [facility] CenterMAGNESIUM2020-06-12 16:58:00 Test Item Value Reference Range Interpretation Comments MAGNESIUM (test code = 1181508847) 2.0 mg/dL 1.7-2.4 Lab Interpretation (test code = Normal 73971-2) [facility] CenterXR [id number] 17:02:411. Interval worsening of air distended loops [...] with cecum measuring up to 15 cm. [facility] WITH [id number] 07:20:00 Test Item Value Reference Range Interpretation Comments WBC (test code = See_Comment L [Automated 4290-2) message] The sy stem which [...] RDW-SD (test code = 46.5 fL 38.5-51.6 62761-7) RDW-CV (test code = 13.9 % 12.1-15.4 788-0) PLT (test code = See_Comment L [Automated 777-3) message] The sy stem which generated this result transmitted reference range : 150 - 328 10*3/ ?L. The reference r meredith was not used to interpret this result as normal/abnormal . MPV (test code = 10.7 fL 9.8-13 25950-8) NRBC/100 WBC (test See_Comment [Automat ed code = 7123314647) message] The system which generated this result transmitted reference range : 0.0 - 10.0 /100 WBCs. The refer ence range was not u sed to interpret th is result as normal/abnormal . NRBC x10^3 (test code <0.01 See_Comment [Auto mated = 4261713279) message] The s ystem which generated this result transmitted reference range : 10*3/?L. The reference range was not used to interpret this result as normal/abnormal . GRAN MAT (NEUT) % 48.6 % (test code = 770-8) IMM GRAN % (test code 0.20 % = 0418942518) LYMPH % (test code = 39.6 % 736-9) MONO % (test code = 8.4 % 5905-5) EOS % (test code = 2.7 % 713-8) BASO % (test code = 0.5 % 706-2) GRAN MAT x10^3(ANC) 1.96 10*3/uL 1.99-6.95 L (test code = 8664915177) IMM GRAN x10^3 (test <0.03 0-0.06 code = 9226321199) LYMPH x10^3 (test code 1.60 10*3/uL 1.09-3.23 = 731-0) MONO x10^3 (test code 0.34 10*3/uL 0.36-1.02 L = 742-7) EOS x10^3 (test code = 0.11 10*3/uL 0.06-0.53 711-2) BASO x10^3 (test code <0.03 0.01-0.09 = 704-7) Lab Interpretation Abnormal (test code = 22760-6) [facility] METABOLIC PANEL (NA, K, CL, CO2, GLUCOSE, BUN, CREATININE, CA)2020-01-31 06:32:00 Test Item Value Reference Range Interpretation Comments NA (test code = 138 mmol/L 135-145 4066051628) K (test code = 4.2 mmol/L 3.5-5 Slight 4652309708) hemolysis CL (test code = 108 mmol/L 98-108 7287533964) CO2 TOTAL (test code 22 mmol/L 23-31 L = 3538349504) AGAP (test code = 2-16 0174095157) BUN (test code = 7 mg/dL 7-23 Slight 6080015170) hemolysis GLUCOSE (test code = 92 mg/dL 70-110 8739225983) CREATININE (test code 1.02 mg/dL 0.6-1.25 = 3407991543) CALCIUM (test code = 8.9 mg/dL 8.6-10.6 6129412128) eGFR Calculation mL/min/1.73m2 (Non-) (test code = 5111633896) eGFR Calculation mL/min/1.73m2 () (test code = 7959501741) GILBERTO (test code = GILBERTO) Association of [...] tests). Lab Interpretation Abnormal (test code = 40561-0) [facility] WITH [id number] 11:00:00 Test Item Value Reference Range Interpretation [...] RDW-SD (test code = 48.7 fL 38.5-51.6 06132-3) RDW-CV (test code = 14.4 % 12.1-15.4 788-0) PLT (test code = See_Comment L [Automated 777-3) message] The sy stem which generated this result transmitted reference range : 150 - 328 10*3/ ?L. The reference r meredith was not used to interpret this result as normal/abnormal . MPV (test code = 10.7 fL 9.8-13 11203-7) IPF % (test code = 5.1 % 1.2-10.7 Platelet count 5138894519) measured by fluorescence method. NRBC/100 WBC (test See_Comment [Automat ed code = 4967443396) message] The system which generated this result transmitted reference range : 0.0 - 10.0 /100 WBCs. The refer ence range was not u sed to interpret th is result as normal/abnormal . NRBC x10^3 (test code <0.01 See_Comment [Auto mated = 7605513072) message] The s ystem which generated this result transmitted reference range : 10*3/?L. The reference range was not used to interpret this result as normal/abnormal . SEG % (test code = 53 % 33-76 94436-2) BAND % (test code = 1 % 0-1 84865-6) LYMPH % (test code = 39 % 14-54 63659-7) MONO % (test code = 4 % 0-4 17740-5) EOS % (test code = 3 % 0-3 04399-8) ANC (test code = 1.93 10*3/uL 1.99-6.95 L [id number]) Lab Interpretation Abnormal (test code = 32881-4) [facility] Metabolic Panel (NA, K, CL, CO2, GLUCOSE, BUN, CREATININE, CA)2020-01-29 10:23:00 Test Item Value Reference Range Interpretation Comments NA (test code = 138 mmol/L 135-145 [id number]) K (test code = 4.0 mmol/L 3.5-5 4318149161) CL (test code = 109 mmol/L 98-108 H [id number]) CO2 TOTAL (test code = 27 mmol/L 23-31 [id number]) AGAP (test code = 2-16 [id number]) BUN (test code = 16 mg/dL 7-23 9892249445) GLUCOSE (test code = 81 mg/dL 70-110 8416283606) CREATININE (test code = 1.14 mg/dL 0.6-1.25 5412776500) CALCIUM (test code = 8.6 mg/dL 8.6-10.6 9722028239) eGFR Calculation mL/min/1.73m2 (Non-) (test code = 6010829350) eGFR Calculation mL/min/1.73m2 () (test code = 7711282836) GILBERTO (test code = GILBERTO) Association of [...] tests). Lab Interpretation Abnormal (test code = 13651-3) [facility] COVID[facility]19 [id number] 04:27:00 Test Item Value Reference Range Interpretation Comments SARS-CoV-2 Rapid ID NOW Not Detected Not Detected (test code = 59178-3) GILBERTO (test code = GILBERTO) ID NOW COVID-19 Assay is an isothermal nucleic acid amplification test intended for the qualitative detection of nucleic acid from SARS-CoV-2 viral RNA in nasopharyngeal ([employer]) specimens. It is used under Emergency Use [...] indicated. Lab Interpretation Normal (test code = 14344-1) [facility] CenterLactic Acid Whole [id number] 04:10:00 Test Item Value Reference Range Interpretation Comments LACTIC ACID (test code = 1.74 mmol/L 0.5-2.2 4428962822) [facility]COVID[facility] (ID NOW RAPID TESTING)2020-01-29 02:17:00 Test Item Value Reference Range Interpretation Comments SARS-CoV-2 Rapid ID NOW Not Detected Not Detected (test code = 05881-9) GILBERTO (test code = GILBERTO) ID NOW COVID-19 Assay is an isothermal nucleic acid amplification test intended for the qualitative detection of nucleic acid from SARS-CoV-2 viral RNA in nasopharyngeal ([employer]) specimens. It is used under Emergency Use [...] indicated. Lab Interpretation Normal (test code = 58986-5) [facility] CenterUrinalysis2020-06-07 02:14:00 Test Item Value Reference Range Interpretation Comments APPEARANCE (test code = Clear Clear 4173474186) COLOR (test code = Dark Yellow Yellow A 3952437488) PH (test code = 4.8-8.0 3850848565) SP GRAVITY (test code = 1.003-1.030 H 5261153149) GLU U QUAL (test code = Normal Normal 2101874821) BLOOD (test code = 1+ Negative A 8053829302) KETONES (test code = 5 mg/dL Negative A 1824554507) PROTEIN (test code = Negative Negative 2887-8) UROBILIN (test code = Normal Normal 3662089108) BILIRUBIN (test code = Negative Negative 1960963369) NITRITE (test code = Negative Negative 5215765198) LEUK ROGER (test code = Negative Negative 8133514755) RBC/HPF (test code = See_Comment H [Autom ated 9448737116) message] The sy stem which generated this result transmitted reference range : 0 - 3 HPF. The reference range was not used to interpret this result as normal/abnormal . WBC/HPF (test code = See_Comment [Autom ated 4172019240) message] The sy stem which generated this result transmitted reference range : 0 - 5 HPF. The reference range was not used to interpret this result as normal/abnormal . BACTERIA (test code = Moderate Negative A 8836014380) MUCOUS (test code = Slight Negative LPF A 7418288939) AMORPHOUS (test code = Rare Rare HPF 7134491524) SQ EPITH (test code = <1 See_Comment [Auto mated 4611982149) message] The sy stem which generated this result transmitted reference range : <=2 HPF. The reference range was not used to interpret this result as normal/abnormal . CA OXALATE (test code = See_Comment H [Au tomated 8045744444) message] The sy stem which generated this result transmitted reference range : <=1 HPF. The reference range was not used to interpret this result as normal/abnormal . HYAL CAST (test code = See_Comment H [Aut omated 7289546487) message] The sy stem which generated this result transmitted reference range : <=2 LPF. The reference range was not used to interpret this result as normal/abnormal . ASCORBIC ACID (test Negative code = 8387168422) Lab Interpretation Abnormal (test code = 77444-4) [facility] CenterCT ABDOMEN PELVIS W [id number] 00:25:08Persistent marked and severe dilatation of the [...] is essentially stable compared to prior examination. [facility] Metabolic Panel (NA, K, CL, CO2, GLUCOSE, BUN, CREATININE, CA)2020-01-28 23:38:00 Test Item Value Reference Range Interpretation Comments NA (test code = 143 mmol/L 135-145 1792716531) K (test code = 4.2 mmol/L 3.5-5 3704628633) CL (test code = 111 mmol/L 98-108 H 3963446712) CO2 TOTAL (test code = 28 mmol/L 23-31 2289034313) AGAP (test code = 2-16 6808821921) BUN (test code = 15 mg/dL 7-23 8164864564) GLUCOSE (test code = 68 mg/dL 70-110 L 1466665109) CREATININE (test code = 1.32 mg/dL 0.6-1.25 H 9147290513) CALCIUM (test code = 9.0 mg/dL 8.6-10.6 2052335346) eGFR Calculation mL/min/1.73m2 (Non-) (test code = 6532202279) eGFR Calculation mL/min/1.73m2 () (test code = 8149154284) GILBERTO (test code = GILBERTO) Association of [...] tests). Lab Interpretation Abnormal (test code = 21784-2) [facility] CenterHepatic Function Panel (ALB, T.PRO, BILI T, BU/BC, ALT, AST, ALK PHOS)2020-01-28 23:38:00 Test Item Value Reference Range Interpretation Comments TOTAL BILI (test code = 2848965133) 0.6 mg/dL 0.1-1.1 BILI UNCON (test code = 9339433759) 0.6 mg/dL 0.1-1.1 BILI CONJ (test code = 4659594320) 0.0 mg/dL 0-0.3 T PROTEIN (test code = 9668469619) 5.7 g/dL 6.3-8.2 L ALBUMIN (test code = 5651841033) 3.8 g/dL 3.5-5 ALK PHOS (test code = 7406380756) 37 U/L 34-122 ALTv (test code = 1742-6) 23 U/L 5-50 AST(SGOT) (test code = 3542184725) 25 U/L 13-40 Lab Interpretation (test code = Abnormal 96897-0) [facility] CenterLipase [id number] 23:38:00 Test Item Value Reference Range Interpretation Comments LIPASE (test code = 7204788903) 62 U/L 0-220 Lab Interpretation (test code = Normal 51969-2) [facility] CenterCBC WITH [id number] 23:29:00 Test Item Value Reference Range Interpretation [...] RDW-SD (test code = 47.5 fL 38.5-51.6 41004-0) RDW-CV (test code = 14.3 % 12.1-15.4 788-0) PLT (test code = See_Comment [Automated 777-3) message] The sy stem which generated this result transmitted reference range : 150 - 328 10*3/ ?L. The reference r meredith was not used to interpret this result as normal/abnormal . MPV (test code = 10.6 fL 9.8-13 60974-8) NRBC/100 WBC (test See_Comment [Automat ed code = 9313289792) message] The system which generated this result transmitted reference range : 0.0 - 10.0 /100 WBCs. The refer ence range was not u sed to interpret th is result as normal/abnormal . NRBC x10^3 (test code <0.01 See_Comment [Auto mated = 3494720205) message] The s ystem which generated this result transmitted reference range : 10*3/?L. The reference range was not used to interpret this result as normal/abnormal . GRAN MAT (NEUT) % 50.1 % (test code = 770-8) IMM GRAN % (test code 0.20 % = 5825283894) LYMPH % (test code = 34.7 % 736-9) MONO % (test code = 12.5 % 5905-5) EOS % (test code = 1.8 % 713-8) BASO % (test code = 0.7 % 706-2) GRAN MAT x10^3(ANC) 2.28 10*3/uL 1.99-6.95 (test code = 4441770836) IMM GRAN x10^3 (test <0.03 0-0.06 code = 9540389589) LYMPH x10^3 (test code 1.58 10*3/uL 1.09-3.23 = 731-0) MONO x10^3 (test code 0.57 10*3/uL 0.36-1.02 = 742-7) EOS x10^3 (test code = 0.08 10*3/uL 0.06-0.53 711-2) BASO x10^3 (test code 0.03 10*3/uL 0.01-0.09 = 704-7) Lab Interpretation Abnormal (test code = 20585-5) [facility] METABOLIC PANEL (NA, K, CL, CO2, GLUCOSE, BUN, CREATININE, CA)2020-01-26 18:34:00 Test Item Value Reference Range Interpretation Comments NA (test code = 138 mmol/L 135-145 7514096605) K (test code = 3.7 mmol/L 3.5-5 1092442039) CL (test code = 108 mmol/L 98-108 5874431461) CO2 TOTAL (test code = 25 mmol/L 23-31 9807977518) AGAP (test code = 2-16 4278904156) BUN (test code = 9 mg/dL 7-23 1966101453) GLUCOSE (test code = 107 mg/dL 70-110 2203509944) CREATININE (test code 0.96 mg/dL 0.6-1.25 = 3507634861) CALCIUM (test code = 8.7 mg/dL 8.6-10.6 5390416363) eGFR Calculation mL/min/1.73m2 (Non-) (test code = 2256991227) eGFR Calculation mL/min/1.73m2 () (test code = 3959124968) GILBERTO (test code = GILBERTO) Association of [...] or urine or abnormalities in imaging tests). [facility] Ijgar5293-75-91 08:33:00 Test Item Value Reference Range Interpretation Comments MAGNESIUM (test code = 1.9 mg/dL 1.7-2.4 Sligh t hemolysis 5311640404) Lab Interpretation (test Normal code = 56508-0) [facility] CenterXR [id number] 06:18:53 Redemonstration of marked gaseous distention of the transverse anddescending colon. RL: 460 AFC: 49800 Ordering physician: HELENE GRIFFIN INDICATION: Abdominal pain [...] distention of the transverse anddescending colon.RL: 460AFC: 31535Cagmwjmaxwuiyn signed by Angeli Carrillo MD, PhD at 01/26/2020 1:18 AMUnMichael [facility]. [facility] Phosphorus Cwzmm6343-09-99 10:11:00 Test Item Value Reference Range Interpretation Comments PHOSPHORUS (test code = 3356180343) 3.9 mg/dL 2.5-5 Lab Interpretation (test code = Normal 74546-0) [facility] CenterCOVID[facility] (ID NOW RAPID TESTING)2020-01-25 05:12:00 Test Item Value Reference Range Interpretation Comments SARS-CoV-2 Rapid ID NOW Not Detected Not Detected (test code = 20910-3) GILBERTO (test code = GILBERTO) ID NOW COVID-19 Assay is an isothermal nucleic acid amplification test intended for the qualitative detection of nucleic acid from SARS-CoV-2 viral RNA in nasopharyngeal ([employer]) specimens. It is used under Emergency Use [...] indicated. Lab Interpretation Normal (test code = 56234-7) [facility] CenterLactic Acid Whole Vnbme4020-86-16 04:34:00 Test Item Value Reference Range Interpretation Comments LACTIC ACID (test code = 0.89 mmol/L 0.5-2.2 6180883963) [facility] CenterCT ABDOMEN PELVIS W [id number] 02:47:02Impression: Marked distention and dilatation of the [...] bowel as well. Rectal tubedecompression may be considered.[facility] CenterUrinalysis2020-06-03 01:51:00 Test Item Value Reference Range Interpretation Comments APPEARANCE (test code = Hazy Clear A 5156754042) COLOR (test code = Yellow Yellow 3107235988) PH (test code = 4.8-8.0 6940059114) SP GRAVITY (test code = 1.003-1.030 7442982744) GLU U QUAL (test code = Normal Normal 7266241637) BLOOD (test code = Negative Negative 1906475042) KETONES (test code = Negative Negative 8168637006) PROTEIN (test code = Negative Negative 2887-8) UROBILIN (test code = Normal Normal 9527378291) BILIRUBIN (test code = Negative Negative 3876113885) NITRITE (test code = Negative Negative 9613821945) LEUK ROGER (test code = Negative Negative 3747046721) RBC/HPF (test code = See_Comment H [Autom ated message] 8065014876) The system [employer] generated this result transmitted ref erence range: 0 - 3 HP F. The reference range was not used to int erpret this result as normal/abnormal . WBC/HPF (test code = See_Comment [Autom ated message] 9028973978) The system [employer] generated this result transmitted ref erence range: 0 - 5 HP F. The reference range was not used to int erpret this result as normal/abnormal . BACTERIA (test code = Negative Negative 9555711275) SQ EPITH (test code = <1 See_Comment [Auto mated message] 0280929374) The system [employer] generated this result transmitted ref erence range: <=2 HPF. The reference range was not used to int erpret this result as normal/abnormal . CA OXALATE (test code = See_Comment H [Au tomated message] 1943139029) The system [employer] generated this result transmitted ref erence range: <=1 HPF. The reference range was not used to int erpret this result as normal/abnormal . Lab Interpretation (test Abnormal code = 10353-2) [facility] Metabolic Panel (NA, K, CL, CO2, GLUCOSE, BUN, CREATININE, CA)2020-01-25 01:01:00 Test Item Value Reference Range Interpretation Comments NA (test code = 139 mmol/L 135-145 0533453894) K (test code = 4.6 mmol/L 3.5-5 Slight hemoly sis 5974604962) CL (test code = 107 mmol/L 98-108 0697647868) CO2 TOTAL (test 26 mmol/L 23-31 code = 3608008168) AGAP (test code = 2-16 8570701288) BUN (test code = 23 mg/dL 7-23 Slight hemo lysis 1807248552) GLUCOSE (test code 94 mg/dL 70-110 = 0513890605) CREATININE (test 1.13 mg/dL 0.6-1.25 code = 6214144881) CALCIUM (test code 8.9 mg/dL 8.6-10.6 = 0673167937) eGFR Calculation mL/min/1.73m2 (Non-) (test code = 3442359496) eGFR Calculation mL/min/1.73m2 () (test code = 3475439011) GILBERTO (test code = Association of GILBERTO) [...] or urine or abnormalities in imaging tests). [facility] CenterHep[facility] (ALB, T.PRO, BILI T, BU/BC, ALT, AST, ALK PHOS)2020-01-25 01:01:00 Test Item Value Reference Range Interpretation Comments TOTAL BILI (test code = 7790327121) 0.7 mg/dL 0.1-1.1 BILI UNCON (test code = 9723929142) 0.6 mg/dL 0.1-1.1 BILI CONJ (test code = 3104404461) 0.0 mg/dL 0-0.3 T PROTEIN (test code = 3465513315) 6.2 g/dL 6.3-8.2 L ALBUMIN (test code = 1666663876) 4.1 g/dL 3.5-5 ALK PHOS (test code = 6052901336) 46 U/L 34-122 ALTv (test code = 1742-6) 27 U/L 5-50 AST(SGOT) (test code = 4156786192) 31 U/L 13-40 Lab Interpretation (test code = Abnormal 44774-9) [facility] CenterLipase [id number] 01:01:00 Test Item Value Reference Range Interpretation Comments LIPASE (test code = 2540816125) 246 U/L 0-220 H Lab Interpretation (test code = Abnormal 34562-1) [facility] CenterCB WITH [id number] 00:49:00 Test Item Value Reference Range Interpretation [...] RDW-SD (test code = 46.8 fL 38.5-51.6 09589-4) RDW-CV (test code = 14.2 % 12.1-15.4 788-0) PLT (test code = See_Comment [Automated 777-3) message] The sy stem which generated this result transmitted reference range : 150 - 328 10*3/ ?L. The reference r meredith was not used to interpret this result as normal/abnormal . MPV (test code = 10.7 fL 9.8-13 38643-7) NRBC/100 WBC (test See_Comment [Automat ed code = 5602393548) message] The system which generated this result transmitted reference range : 0.0 - 10.0 /100 WBCs. The refer ence range was not u sed to interpret th is result as normal/abnormal . NRBC x10^3 (test code <0.01 See_Comment [Auto mated = 9583115323) message] The s ystem which generated this result transmitted reference range : 10*3/?L. The reference range was not used to interpret this result as normal/abnormal . GRAN MAT (NEUT) % 56.9 % (test code = 770-8) IMM GRAN % (test code 0.20 % = 2919002946) LYMPH % (test code = 31.2 % 736-9) MONO % (test code = 9.7 % 5905-5) EOS % (test code = 1.6 % 713-8) BASO % (test code = 0.4 % 706-2) GRAN MAT x10^3(ANC) 2.86 10*3/uL 1.99-6.95 (test code = 1854476423) IMM GRAN x10^3 (test <0.03 0-0.06 code = 6190817613) LYMPH x10^3 (test code 1.57 10*3/uL 1.09-3.23 = 731-0) MONO x10^3 (test code 0.49 10*3/uL 0.36-1.02 = 742-7) EOS x10^3 (test code = 0.08 10*3/uL 0.06-0.53 711-2) BASO x10^3 (test code <0.03 0.01-0.09 = 704-7) Lab Interpretation Abnormal (test code = 41099-3) [facility]- [facility]BD[facility]EN 1 [id number] 07:32:00 Name: DORA MCNEILL [facility] : 1970 Age/S: 49 / M [address] Unit #: [id number] Loc: [place] [address] Phys: Jay Mayo MD Acct: [id number] Dis Date: Status: ADMIN PHONE #: [phone] Exam Date: 01/10/2020 0658 FAX #: Reason: follow up colonic ileus EXAMS: CPT: [id number] XR ABDOMEN 1 V 51866 Fluoro Time: DAP (Gy m2): Air Kerma [...] PAGE 1 Signed Report Name: DORA MCNEILL [facility] : 1970 Age/S: 49 / M [address] Unit #: [id number] Loc: [place] [address] Phys: Jay Mayo MD Acct: [id number] Dis Date: Status: ADM IN PHONE #: [phone] Exam Date: 01/10/2020 0658 FAX #: Reason: follow up colonic ileus EXAMS: CPT: [id number] XR ABDOMEN 1 V 35894 Fluoro Time: DAP (Gy m2): Air Kerma (mGy): <Continued> Technologist: Bakari De Leon RT(R)(CT) Trnscb Date/Time: 01/10/2020 (731) GarettCB5 Orig Print D/T: S: 01/10/2020 (0736) PAGE 2 Signed ReportCOMPREHENSIVE METABOLIC [id number] 05:56:00 Test Item Value Reference Range Interpretation [...] TOTAL (test code = ALKP) CBC W/AUTO [id number] 05:42:00 Test Item Value Reference Range Interpretation [...] = NO DIFF/SCN CRITERIA MDIFF) BASIC METABOLIC [id number] 06:59:00 Test Item Value Reference Range Interpretation [...] code = CA) 8.5 MG/DL 8.5-10.1 N [id number] 06:59:00 Test Item Value Reference Range Interpretation Comments MAGNESIUM (test code = MAG) 2.2 MG/DL 1.8-2.4 PROTHROMBIN [id number] 06:39:00 Test Item Value Reference Range Interpretation Comments PT PATIENT (test code = PTP) 13.1 SECONDS 9.3-12.9 H INTERNATIONAL NORMAL RATIO 1.16 INR Unit 0.8-1.2 N (test code = INR) CBC W/AUTO [id number] 06:22:00 Test Item Value Reference Range Interpretation [...] DIFF/SCN CRITERIA MDIFF) - XR ABDOMEN 1 [id number] 05:39:00 Name: DORA MCNEILL [facility] : 1970 Age/S: 49 / M [address] Unit #: [id number] Loc: [place] [address] 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P Acct: [id number] Dis Date: Status: ADM IN PHONE #: [phone] Exam Date: 01/09/2020522 FAX #: Reason: colonic ileus/obstruction EXAMS: CPT: [id number] XR ABDOMEN 1 V 23995 Fluoro Time: DAP (Gy m2): Air Kerma [...] PAGE 1 Signed Report Name: DORA MCNEILL [facility] : 1970 Age/S: 49 / M [address] Unit #: [id number] Loc: [place] [address] Phys: EpworthAndre [facility] Acct: [id number] Dis Date: Status: ADM IN PHONE #: [phone] Date: 01/09/2020522 FAX #: Reason: colonic ileus/obstruction EXAMS: CPT: [id number] XR ABDOMEN 1 V 21040 Fluoro Time: DAP (Gy m2): Air Kerma (mGy): <Continued> Technologist: Carrie Barnett, RT(R)(CT) Trnscb Date/Time: 01/09/2020 (0539) tKARTIK Orig Print D/T: S: 01/09/2020 (0542) PAGE 2 Signed ReportCoronavirus 2018 nCoV Uxhzglu0796-28-46 22:38:00 Test Item Value Reference Range Interpretation Comments Coronavirus 2019 nCoV Bedside (test Negative Negative code = [id number]) Emergent procedure? YESCoronavirus 2018 nCoV Erxmtlb0945-43-99 22:38:00 Test Item Value Reference Range Interpretation Comments Coronavirus 2019 nCoV Bedside (test Negative Negative code = [id number]) Emergent procedure? YESBASIC METABOLIC [id number] 18:42:00 Test Item Value Reference Range Interpretation [...] CA) 8.5 MG/DL 8.5-10.1 N CBC W/AUTO [id number] 10:50:00 Test Item Value Reference Range Interpretation [...] = NO DIFF/SCN CRITERIA MDIFF) COMPREHENSIVE METABOLIC [id number] 10:46:00 Test Item Value Reference Range Interpretation [...] 50-136 N TOTAL (test code = ALKP) [id number] 10:46:00 Test Item Value Reference Range Interpretation Comments MAGNESIUM (test code = MAG) 2.6 MG/DL 1.8-2.4 H COMPREHENSIVE METABOLIC [id number] 10:34:00 Test Item Value Reference Range Interpretation [...] TOTAL (test Unit/L 50-136 code = ALKP) [id number] 10:34:00 Test Item Value Reference Range Interpretation Comments MAGNESIUM (test code = MAG) MG/DL 1.8-2.4 - XR ABDOMEN 1 [id number] 08:28:00 Name: DORA MCNEILL [facility] : 1970 Age/S: 49 / M [address] Unit #: [id number] Loc: [place] [address] Phys: Yas Edwards MD Acct: [id number] Dis Date: Status: ADM IN PHONE #: [phone] Exam Date: 01/08/2020509 FAX #: Reason: ileus EXAMS: CPT: [id number] XR ABDOMEN 1 V 91293 Fluoro Time: DAP (Gy m2): Air Kerma [...] PAGE 1 Signed Report Name: DORA MCNEILL [facility] : 1970 Age/S: 49 / M [address] [facility] Unit #: [id number] Loc: [place] [address] Phys: Yas Edwards MD Acct: [id number] Dis Date: Status: ADM IN PHONE #: [phone] Exam Date: 01/08/2020509 FAX #: Reason: ileus EXAMS: CPT: [id number] XR ABDOMEN 1 V 43997 Fluoro Time: DAP (Gy m2): Air Kerma (mGy): <C ontinued> Technologist: Carrie Barnett, RT(R)(CT); ... Trnscb Date/Time: 01/08/2020 (827) tJAQUELINE Orig Print D/T: S: 01/08/2020 (830) PAGE 2 Signed ReportCOMPREHENSIVE METABOLIC [id number] 07:08:00 Test Item Value Reference Range Interpretation [...] 50-136 L TOTAL (test code = ALKP) [id number] 07:08:00 Test Item Value Reference Range Interpretation Comments MAGNESIUM (test code = MAG) 1.3 MG/DL 1.8-2.4 L COMPREHENSIVE METABOLIC [id number] 05:16:00 Test Item Value Reference Range Interpretation [...] 50-136 L TOTAL (test code = ALKP) [id number] 05:16:00 Test Item Value Reference Range Interpretation Comments MAGNESIUM (test code = MAG) 1.3 MG/DL 1.8-2.4 L CBC W/AUTO [id number] 05:02:00 Test Item Value Reference Range Interpretation [...] (test code = NO DIFF/SCN CRITERIA MDIFF) [id number] 16:51:00 Test Item Value Reference Range Interpretation Comments MAGNESIUM (test code = MAG) 2.3 MG/DL 1.8-2.4 N FE W/TOTAL IRON BINDING CAP.2020-01-07 16:51:00 Test Item Value Reference Range Interpretation Comments SERUM IRON (test code = IRON) 38 mcG/DL 65-175 L TOTAL IRON BINDING CAPACITY (test 322 mcG/DL 250-450 N code = TIBC) IRON SATURATION (test code = 12 % calc 12-57 N FESAT) [id number] 16:51:00 Test Item Value Reference Range Interpretation Comments FERRITIN (test code = DAVID) 17.6 NG/ML 5.0-323.0 N CALCIUM [id number] 16:50:00 Test Item Value Reference Range Interpretation Comments CALCIUM IONIZED (test code = NAVEED) 1.12 mmol/L 1.12-1.32 N - XR ABDOMEN 1 [id number] 10:29:00 Name: DORA MCNEILL [facility] : 1970 Age/S: 49 / M [address] Unit #: [id number] Loc: [place] [address] Phys: Verona Frost PA-C Acct: [id number] Dis Date: Status: ADM IN ONE #: [phone] Exam Date: 01/07/2020711 FAX #: Reason: reassess SBO EXAMS: CPT: [id number] XRABDOMEN 1 V 20510 Fluoro Time: DAP (Gy m2): Air Kerma [...] PAGE 1 Signed Report Name: DORA MCNEILL [facility] : 1970 Age/S: 49 / M [address] Unit #: [id number] Loc: [place] [address] Phys: Verona Frost PA-C Acct: [id number] Dis Date: Status: ADM IN PHONE #: [phone] Exam Date: 01/07/202012 FAX #: Reason: reassess SBO EXAMS: CPT: [id number] XR ABDOMEN 1 V 84278 Fluoro Time: DAP (Gy m2): Air Kerma (mGy): <Continued> Technologist: Bakari De Leon RT(R)(CT) Trnscb Date/Time: 2019 (1021) t.PRAVIN Orig Print D/T: S: 01/07/2020 (3521) PAGE 2 Signed Report BASIC METABOLIC [id number] 07:01:00 Test Item Value Reference Range Interpretation [...] CA) 5.4 MG/DL 8.5-10.1 LL CBC W/AUTO [id number] 06:49:00 Test Item Value Reference Range Interpretation [...] = NO DIFF/SCN CRITERIA MDIFF) COMPREHENSIVE METABOLIC [id number] 06:10:00 Test Item Value Reference Range Interpretation [...] TOTAL (test code = ALKP) CBC W/AUTO [id number] 05:52:00 Test Item Value Reference Range Interpretation [...] DIFF/SCN CRITERIA MDIFF) - XR ABDOMEN 1 [id number] 01:30:00 Name: DORA MCNEILL [facility] : 1970 Age/S: 49 / M [address] Unit #: [id number] Loc: [place] [address] Phys: Ted Coleman [employer] Acct: [id number] Dis Date: Status: ADM IN PHONE #: [phone] Exam Date: 01/06/202099 FAX #: Reason: NG Tube Placement Verification EXAMS: CPT: [id number] XR ABDOMEN 1 V 97181 Fluoro Time: DAP (Gy m2): Air Kerma [...] M.D. CC: Mark Perea MD; Ted Coleman [employer] PAGE 1 Signed Report Name: DORA MCNEILL [facility] : 1970 Age[facility]S: 49 / M [address] [facility] Unit #: [id number] Loc: [place] [address] Phys: Ted Coleman [employer] Acct : [id number] Dis Date: Status: ADM IN PHONE #: [phone] Exam Date: 01/06/202099 FAX #: Reason: NG Tube Placement Verification EXAMS: CPT: [id number] XR ABDOMEN 1 V 01511 Fluoro Time: DAP (Gy m2): Air Kerma (mGy): <Continued> Technologist: RT Tatum(R) Trnscb Date/Time: 01/06/2020 (013) Herrera Orig Print D/T: S: 01/06/2020 (013) PAGE 2 Signed Report- CT ABD PELVIS W/O [id number] 19:42:00 [place]: St: REG -- Name: DORA MCNEILL [facility] : 1970 Age/S: 49/M [address] [facility] Unit:[id number] Loc: [place], [place] Phys: [place] [id number] Acct: [id number] Dis Date: Status: REG ER PHONE #: [phone] Exam Date: 12/13/20191924 FAX #: [phone] Reason: pain EXAMS: CPT CODE: [id number] CT ABD PELVIS W/O CONT 42381 Examination: CT scan abdomen and pelvis without [...] code = CA) 8.6 mg/dl 8.0-10.5 N [id number] 18:49:00 Test Item Value Reference Range Interpretation Comments LIPASE (test code = LIP) 97 Units/L 65.0-230.0 N CBC W/AUTO [id number] 18:38:00 Test Item Value Reference Range Interpretation [...] K/mm3 0.0-0.2 N - XR CHEST 1 [id number] 18:36:00 [place]: St: PRE -- Name: MCNEILLDORA HOANG [facility] : 1970 Age/S: 49/M [address] [facility] Unit#: [id number] Loc: [place], [place] Phys: [place] [address] Acct: [id number] Dis Date: Status: PRE ER PHONE #: [phone] Exam Date: 12/13/20191821 FAX #: [phone] Reason: SOB EXAMS: CPT CODE: [id number] XR CHEST 1 V 89665 Examination: One view chest x-ray Location code: H60 Comparison: None Discussion: Clinical history is remarkable for shortness of breath and weakness. Heart is normal in size. Lungs are clear of consolidating infiltrates. No effusions identified. There is significant distention of the colon. Impression: 1. Normal one view chest x-ray. 2. Colonic distention. at 183 Reported and signed by: SHANEL EDWARDS CC: Technologist: AMBER GENTILE Trnscrd Date/Time/By: 12/13/2019 (1835) : By: [email or web address] PAGE 1 Signed Report [place]: St: PRE ------- Name: DORA MCNEILL [facility] : 1970 Age/S: 49/M [address] [facility] Unit #: [id number] Loc: [place], [place]: [place] [address] Acct: [id number] Dis Date: Status: PRE ER PHONE #: [phone] Exam Date: 12/13/20191821 FAX #: [phone] Reason: SOB EXAMS: CPT CODE: [id number] XR CHEST 1 V 84761 (Continued) Orig Print D/T: S: 12/13/2019 (183)PAGE 2 Signed ReportCB W/PLT COUNT & AUTO [id number] 08:02:00 Test Item Value Reference Range Interpretation [...] Received comment: User comments: Slide comments:BASIC METABOLIC [id number] 07:34:00 Test Item Value Reference Range Interpretation [...] S NOT APPLICABLE FOR DIALYSIS PATIEN TS. [id number] 07:26:00 Test Item Value Reference Range Interpretation Comments PHOSPHORUS (BEAKER) (test code = 3.1 mg/dL 2.3-4.7 604) [id number] 07:26:00 Test Item Value Reference Range Interpretation Comments MAGNESIUM (BEAKER) (test code = 1.6 mg/dL 1.6-2.6 627) RAD, ABDOMEN/KUB, 1 VIEW [id number] 07:04:00Reason for exam:->ileusFINAL REPORT Abdomen , one [...] Verified Date/Time: 04/03/2019 07:04:46 Reading Location: [facility] C013X Ortho Consult Reading Room BASIC METABOLIC [id number] 06:47:00 Test Item Value Reference Range Interpretation [...] code = 413) URINALYSIS WITH MICROSCOPIC IF [id number] 22:01:00 Test Item Value Reference Range Interpretation [...] code = 463) SOURCE(BEAKER) (test code = 2805) URINALYSIS [id number] 22:01:00 Test Item Value Reference Range Interpretation Comments RBC UA (BEAKER) (test code = 519) 18 /HPF WBC UA (BEAKER) (test code = 520) 1 /HPF CALCIUM OXALATE CRYSTALS (BEAKER) Occasional (test code = 518) [id number] 05:49:00 Test Item Value Reference Range Interpretation Comments PHOSPHORUS (BEAKER) (test code = 2.5 mg/dL 2.3-4.7 604) [id number] 05:49:00 Test Item Value Reference Range Interpretation Comments MAGNESIUM (BEAKER) (test code = 1.7 mg/dL 1.6-2.6 627) BASIC METABOLIC [id number] 05:49:00 Test Item Value Reference Range Interpretation [...] (BEAKER) (test code = 413) BASIC METABOLIC [id number] 06:19:00 Test Item Value Reference Range Interpretation [...] S NOT APPLICABLE FOR DIALYSIS PATIEN TS. [id number] 06:10:00 Test Item Value Reference Range Interpretation Comments MAGNESIUM (BEAKER) 1.8 mg/dL 1.6-2.6 Specimen slightly (test code = 627) hemolyzed [id number] 06:10:00 Test Item Value Reference Range Interpretation [...] (BEAKER) (test code = 413) BASIC METABOLIC [id number] 04:57:00 Test Item Value Reference Range Interpretation [...] S NOT APPLICABLE FOR DIALYSIS PATIEN TS. [id number] 04:55:00 Test Item Value Reference Range Interpretation Comments PHOSPHORUS (BEAKER) (test code = 2.6 mg/dL 2.3-4.7 604) [id number] 04:55:00 Test Item Value Reference Range Interpretation Comments MAGNESIUM (BEAKER) (test code = 1.8 mg/dL 1.6-2.6 627) CT, [id number] 14:16:00FINAL REPORT TECHNIQUE: CT of the abdomen [...] Pope MDReport Verified Date/Time: 03/29/2019 14:16:01Reading Location: [address] Body Reading Room , ABDOMEN/KUB, 1 VIEW [id number] 10:23:00Reason for exam:->evaluate ileusFINAL REPORT Technique: Supine [...] Verified Date/Time: 03/29/2019 10:23:29 Reading Location: [facility] Reading Room CBC (HEMOGRAM ONLY)2019-03-29 [...] WBC 0-0 (BEAKER) (test code = 413) [id number] 06:20:00 Test Item Value Reference Range Interpretation Comments PHOSPHORUS (BEAKER) (test code = 2.6 mg/dL 2.3-4.7 604) [id number] 06:20:00 Test Item Value Reference Range Interpretation Comments MAGNESIUM (BEAKER) (test code = 2.0 mg/dL 1.6-2.6 627) BASIC METABOLIC [id number] 06:20:00 Test Item Value Reference Range Interpretation [...] TS. RAD, ABDOMEN SERIES W/ UPRIGHT PA [id number] 22:18:00Reason for exam:- >eval ileusFINAL REPORT CLINICAL [...] Date/Time: 03/28/2019 22:18:50 RAD, ABDOMEN/KUB, 1 VIEW [id number] 11:23:00Reason for exam:->abdominal distensionShould this be performed [...] 03/28/2019 11:23:34 Reading Location: [facility] Radiology Reading Room TISSUE [id number] 09:00:00Surgical Pathology Report Case: [id number] Authorizing Provider: Graciela Garrison MD Collected: 03/25/2019 1133 Ordering Location: [facility] PERIOPERATIVE Received: 03/25/2019 1527 SERVICES [...] NEGATIVEFOR MALIGNANCY Signing Pathologist Direct Phone Line: [phone] signed by Jordan Celaya MD on 03/28/2019 at 9:00 [id number] and postop diagnosis: ileostomy statusA. End ileostomy; [...] nodes are not identified in the mesentery. Watch Parts Inspector sections are submitted. Section code: A, canvas products sales representative section of each end of first mentioned segment of small bowel; A2, canvas products sales representative of first mentioned segment of small bowel mucosa; A3, area of hemorrhagic mesentery of second mentioned segment of mucosa; A4, canvas products sales representative of hemorrhagic mucosa at open end of second portion of small bowel; A5, canvas products sales representative of stapled margin from second [...] 0.2 cm. No gross lesions are identified. Watch Parts Inspector sections are submitted. Section code: B1, proximal margin en face and tip; B2, canvas products sales representative cross section. CG/pl Performed.[id number] 06:23:00 Test Item Value Reference Range Interpretation Comments PHOSPHORUS (BEAKER) (test code = 2.7 mg/dL 2.3-4.7 604) [id number] 06:23:00 Test Item Value Reference Range Interpretation Comments MAGNESIUM (BEAKER) (test code = 1.9 mg/dL 1.6-2.6 627) BASIC METABOLIC [id number] 06:23:00 Test Item Value Reference Range Interpretation [...] S NOT APPLICABLE FOR DIALYSIS PATIEN TS. [id number] 08:20:00 Test Item Value Reference Range Interpretation Comments PHOSPHORUS (BEAKER) (test code = 2.6 mg/dL 2.3-4.7 604) [id number] 08:20:00 Test Item Value Reference Range Interpretation Comments MAGNESIUM (BEAKER) (test code = 1.8 mg/dL 1.6-2.6 627) BASIC METABOLIC [id number] 08:20:00 Test Item Value Reference Range Interpretation [...] S NOT APPLICABLE FOR DIALYSIS PATIEN TS. [id number] 06:06:00 Test Item Value Reference Range Interpretation Comments PHOSPHORUS (BEAKER) (test code = 4.1 mg/dL 2.3-4.7 604) [id number] 06:06:00 Test Item Value Reference Range Interpretation Comments MAGNESIUM (BEAKER) (test code = 1.8 mg/dL 1.6-2.6 627) BASIC METABOLIC [id number] 06:06:00 Test Item Value Reference Range Interpretation [...] S NOT APPLICABLE FOR DIALYSIS PATIEN TS. [id number] 06:03:00 Test Item Value Reference Range Interpretation Comments PHOSPHORUS (BEAKER) (test code = 4.2 mg/dL 2.3-4.7 604) [id number] 06:03:00 Test Item Value Reference Range Interpretation Comments MAGNESIUM (BEAKER) (test code = 2.0 mg/dL 1.6-2.6 627) BASIC METABOLIC [id number] 06:03:00 Test Item Value Reference Range Interpretation [...] WBC 0-0 (BEAKER) (test code = 413) [id number] 05:52:00 Test Item Value Reference Range Interpretation Comments PHOSPHORUS (BEAKER) (test code = 4.2 mg/dL 2.3-4.7 604) [id number] 05:52:00 Test Item Value Reference Range Interpretation Comments MAGNESIUM (BEAKER) (test code = 1.9 mg/dL 1.6-2.6 627) BASIC METABOLIC [id number] 05:52:00 Test Item Value Reference Range Interpretation [...] S NOT APPLICABLE FOR DIALYSIS PATIEN TS. [id number] 06:51:00 Test Item Value Reference Range Interpretation Comments PHOSPHORUS (BEAKER) (test code = 4.3 mg/dL 2.3-4.7 604) [id number] 06:51:00 Test Item Value Reference Range Interpretation Comments MAGNESIUM (BEAKER) (test code = 2.0 mg/dL 1.6-2.6 627) BASIC METABOLIC [id number] 06:51:00 Test Item Value Reference Range Interpretation [...] 0-0 (BEAKER) (test code = 413) TISSUE [id number] 11:50:00Surgical Pathology Report Case: [id number] Authorizing Provider: Mela Larson MD Collected: 03/18/2019 1827 Ordering Location: [facility] PERIOPERATIVE Received: 03/21/2019 0823 SERVICES Pathologist: Jordan Celaya MD Specimen: Small Bowel, NOS A. SMALL BOWEL, ILEOSTOMY PROLAPSE, TAKEDOWN: - ANASTOMOSIS SITE WITH ACTIVE CHRONIC INFLAMMATION AND FOCAL ISCHEMIC CHANGES - MUCOSAL RESECTION MARGINS, NEGATIVE FOR MALIGNANCY - ONE BENIGN LYMPH NODE (0/1) - NEGATIVE FOR DYSPLASIA OR MALIGNANCY Signing Pathologist Direct Phone Line: [phone] signed by Jordan Celaya MD on 03/22/2019 at 11:50 [id number] of ileostomyReceived in a container labeled "small [...] 0.5 to 1.2 cm in greatest dimension. 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 TH/plPerformed.[id number] 06:58:00 Test Item Value Reference Range Interpretation Comments PHOSPHORUS (BEAKER) (test code = 3.8 mg/dL 2.3-4.7 604) [id number] 06:58:00 Test Item Value Reference Range Interpretation Comments MAGNESIUM (BEAKER) (test code = 2.0 mg/dL 1.6-2.6 627) BASIC METABOLIC [id number] 06:58:00 Test Item Value Reference Range Interpretation [...] PATIEN TS. CBC W/PLT COUNT & AUTO [id number] 05:42:00 Test Item Value Reference Range Interpretation [...] PERCENT (BEAKER) (test code = 2801) FL, [id number] 17:42:00Reason for exam:->evaluate for colon stricture as [...] Lopez Verified Date/Time: 03/21/2019 17:42:21 Reading Location: [address] Consult Reading Room [id number] 03:58:00 Test Item Value Reference Range Interpretation Comments PHOSPHORUS (BEAKER) (test code = 3.0 mg/dL 2.3-4.7 604) [id number] 03:58:00 Test Item Value Reference Range Interpretation Comments MAGNESIUM (BEAKER) (test code = 2.0 mg/dL 1.6-2.6 627) BASIC METABOLIC [id number] 03:58:00 Test Item Value Reference Range Interpretation [...] PATIEN TS. CBC W/PLT COUNT & AUTO [id number] 03:20:00 Test Item Value Reference Range Interpretation [...] (BEAKER) (test code = 2801) BASIC METABOLIC [id number] 06:26:00 Test Item Value Reference Range Interpretation [...] S NOT APPLICABLE FOR DIALYSIS PATIEN TS. [id number] 06:05:00 Test Item Value Reference Range Interpretation Comments PHOSPHORUS (BEAKER) (test code = 2.2 mg/dL 2.3-4.7 L 604) [id number] 06:05:00 Test Item Value Reference Range Interpretation Comments MAGNESIUM (BEAKER) (test code = 2.0 mg/dL 1.6-2.6 627) CBC W/PLT COUNT & AUTO [id number] 05:25:00 Test Item Value Reference Range Interpretation [...] 0-1 PERCENT (BEAKER) (test code = 2801) [id number] 04:31:00 Test Item Value Reference Range Interpretation Comments PHOSPHORUS (BEAKER) (test code = 3.7 mg/dL 2.3-4.7 604) [id number] 04:31:00 Test Item Value Reference Range Interpretation Comments MAGNESIUM (BEAKER) (test code = 1.9 mg/dL 1.6-2.6 627) BASIC METABOLIC [id number] 04:31:00 Test Item Value Reference Range Interpretation [...] PATIEN TS. CBC W/PLT COUNT & AUTO [id number] 04:15:00 Test Item Value Reference Range Interpretation [...] 0-1 PERCENT (BEAKER) (test code = 2801) [id number] 06:41:00 Test Item Value Reference Range Interpretation Comments PHOSPHORUS (BEAKER) (test code = 3.1 mg/dL 2.3-4.7 604) [id number] 06:41:00 Test Item Value Reference Range Interpretation Comments MAGNESIUM (BEAKER) (test code = 1.9 mg/dL 1.6-2.6 627) BASIC METABOLIC [id number] 06:41:00 Test Item Value Reference Range Interpretation [...] PATIEN TS. CBC W/PLT COUNT & AUTO [id number] 06:36:00 Test Item Value Reference Range Interpretation [...] PERCENT (BEAKER) (test code = 2801) CT, [id number] 17:04:00No PO contrastFINAL REPORT ABDOMINAL AND PELVIS [...] Verified Date/Time: 03/17/2019 17:04:19 Reading Location: [facility] Body Reading Room XR ABDOMEN 2 [id number] 09:03:45XR ABDOMEN 2 VIEWSLOCATION: O31CLPZLYN: Colstomy ProlapseCOMPARISON: Chest radiograph 04/15/2017, CT of [...] Nonspecific, nonobstructive bowel gas pattern.XR CHEST 1 [id number] 11:32:15EXAM: CHEST ONE VIEWINDICATION: Chest painCOMPARISON: None availableTECHNIQUE: AP view of the chest.FINDINGS: The cardiomediastinal silhouette is normal. The lungs are clearbilaterally. No pneumothoraxor pleural effusion is identified. Theosseous structures are unremarkable.IMPRESSION: No acute cardiopulmonary process.LOCATION: G61Wndxn Type and [id number] 21:21:00 Test Item Value Reference Range Interpretation Comments ABO type (test code = ABO) O Rh Type (test code = RH) Positive Comprehensive Metabolic [id number] 20:36:00 Test Item Value Reference Range Interpretation [...] ars ofage have not been validated by blessing MDRD study and rashi westfall be interpretedwith caution.eGFR Re sult Interpretation: eGFR > or = 60 is in t he Normal RangeeGF R < 60 may mean kidney diseaseeGFR < 1 5 may mean kidney failureRange s recommended by the National Kidney Foundation,http ://nkd ep.nih.gov Alcohol/Ethanol, [id number] 20:36:00 Test Item Value Reference Range Interpretation Comments Alcohol, Ethyl <0.01 g/dL 0.00-0.01 N Intoxicated 0 .080 g/dL (test code = ETOH) or more Prothrombin [id number] 20:00:00 Test Item Value Reference Range Interpretation Comments PT (test code = PT) 10.10 seconds 9.78-13.35 N INR (test code = INR) 0.88 Ratio 0.6-1.2 N Partial Thromboplastin [id number] 20:00:00 Test Item Value Reference Range Interpretation Comments aPTT (test code = PTT) 31.50 seconds 24.39-37.25 N CBC with [id number] 19:50:00 Test Item Value Reference Range Interpretation [...] code = ALYMPH) 2.2 K/cumm 0.5-4.6 N [place] Abs (test code = AMONO) 0.4 K/cumm 0.0-1.2 N Eos Abs (test code = AEOS) 0.17 K/cumm 0.00-0.74 N Baso Abs (test code = ABASO) 0.0 K/cumm 0.00-0.21 N 95664& PELVIS W/O [id number] 17:36:28CT ABDOMEN AND PELVIS WITHOUT CONTRAST.CLINICAL HISTORY: [...] Notes Date/Time Note Provider Source 2022-02-18 21:22:43 4445-71-49A12:22:43Formatting of Internal Me [facility] this note is different from the System original.Moe Leonard Internal Medicine - HOT Admit Y Admission History & Physical for SWC3Adeegfp admitted by Fannie Blake MD (HOT Admitter Y). For any questions until 12AM on 02/19/2022, please page [phone]. After 12AM, please contact [facility] at [phone]. Thank you!Patient name: Dora McneillMRN: [id number] of admission: 02/18/2022 1:58 PMLOS: 0 daysRoom: CRITICAL CARE HW/CC- *Assessment & Plan:Dora Mcneill [...] enoxaDIET: regularDispo: Hospitalize as observation, home when symptoms/vitals/cr/lytres Fannie Blake MDAbryan Professor Section of General Internal Medicine, [facility] [place] [id number] future appointments. Chief Complaint: ostomy supplies, dizzinessHistory [...] Mood and affect appropriateData: Reviewed in EPIC 61966-5Eronfjn and physical rsurVZ2656-70-38A52:30:24History and physical noteTXT1.2.840.158340.1.13.43.2.7 .2.662070|[id number] for patient careInternal MedicineAbrazo Scottsdale Campusnal MedicineCleveland Clinic[address] [facility] HospitalQursXimqhpnTrzsjvrTCIF7016744432A YLW9970-94-36V32:30:241.2.840.114 350.1.72.3.15|1.2.840.049532.1.13 .43.2.7.2.727879_[id number] 2022-02-07 19:39:59 5828-68-60E19:39:59Formatting of [facility] this note is different from the System original.ADMISSION HISTORY AND PHYSICAL HOSPITALIST Hiram ADMITTERHOT 5 Patient is admitted by HAO Mcclendon on the night of 02/07. To reach the covering provider please page HAO Mcclendon until Midnight. After Midnight, please page HAO An or call [phone]. Chief Complaint: Increased ostomy outputHPI: Dora Mcneill [...] Reviewed CBC6.5 11.5 (L) 344 35.9 (L) DDA608 (L) 103 30.4 (H) 116 (H) 3.9 [...] Bps improved tomorrow, telemetry, HOT 5Catherine Abdi Schmitt.Negotiator, Internal MedicineAlvarado Hospital Medical [facility]# [id number] 2021 7:50 PM 93831-8Ssnxtmu and physical cewmZN3744-20-22O29:03:07History and physical noteTXT1.2.840.572838.1.13.43.2.7 .2.877277|[id number] for patient careCleveland Clinic2525 [facility] HospitalDhybAevvhlmCwhkkkfPKEI1938533861S QOW3072-87-67B33:03:071.2.840.114 350.1.72.3.15|1.2.840.531423.1.13 .43.2.7.2.727879_[id number] Procedure Notes Date/Time Note Provider Source 2022-02-19 06:40:13 4128-44-94Z45:40:13Format Brittani Mccain RN [facility] of this note might System be different from the original.Vascular Access team consulted for difficult venous access. Patient assessed for midline. 18g 10cm midline catheter inserted in right upper arm using ultrasound guidance. Brisk blood return; flushes easily and w/o pain using 10ml 0.9NS Pt tolerated well. No c/o pain or discomfort. 23901-7Onxmiaisc ogazVR5002-91-93K30:40:25 Procedure noteTXT1.2.840.192897.1.1 3.43.2.7.2.160486|[id number] 975AVAvailable for patient ienu26215350Vvhemuiri Evertsz RNCleveland Clinic[address] [place], [place] [address]TXTX770 0988694TZLP7556-00-00I81: 40:251.2.840.034845.1.72. 3.15|1.2.840.962803.1.13. 43.2.7.2.727879_[id number] 5
[2023-06-10 20:17] LABS: Absolute Lymphocytes (CBC) 1.7 K/uL (0.7-4.9); Hematocrit 35.9 % (39.6-49.0); Lymphocytes % 35.4 % (15.3-44.8); MCV 86.5 fL (80-100); MPV 8.1 fL (7.6-11.3); Platelets 259 thou/uL (152-406); RBC Red Blood Cell Count 4.15 M/uL (4.33-5.43)
[2023-06-10 20:27] LABS: Specific Gravity > 1.030 (1.005-1.030); Urine Bacteria None Seen /HPF (<20); Urine Bilirubin NEGATIVE (Negative); Urine Blood Negative (Negative); Urine Clarity Clear (Clear); Urine Color Yellow (Yellow); Urine Glucose NEGATIVE (Negative); Urine Mucus Slight /HPF (None Seen); Urine Protein 1+ (Negative); Urine RBC None Seen /HPF (None Seen); Urine Urobilinogen Normal (Normal)
[2023-06-10 20:54] LABS: Albumin 3.6 g/dL (3.4-5.0); Bilirubin Total 0.5 mg/dL (0.2-1.0); Protein, Total 7.2 g/dL (6.4-8.2)
[2023-06-10 20:55] LABS: Potassium 4.2 mEq/L (3.5-5.1)
--- NOTE | 2023-06-10 22:00 | RAD REPORT ---
EXAM DESCRIPTION: CT - Abdomen Pelvis W Contrast - 06/10/2023 9:16 pm CLINICAL HISTORY: ABD PAIN COMPARISON: Abdomen Pelvis W Contrast dated 04/23/2023; Abdomen Pelvis W Contrast dated 12/11/2019 ; Abdomen Pelvis W Contrast dated 04/02/2019; Abdomen Pelvis W Contrast dated 10/17/2016; Abdomen Pelvis Wo Contrast dated 06/05/2023 TECHNIQUE: Thin cut axial CT imaging of the abdomen and pelvis was performed following intravenous a dministration of 100 mL Isovue 300. Multiplanar reformats were generated and reviewed. All CT scans are performed using dose optimization technique as appropriate and may include automated exposure control or mA/KV adjustment according to patient size. FINDINGS: No suspicious findings in the lung bases. Elevated left hemidiaphragm again seen. The adrenal glands, spleen, and pancreas show no suspicious findings. Gallbladder and at least a segm ent of the left liver lobe appear to have been surgically removed. Remainder of the liver showed no f ocal parenchymal abnormality. Symmetric renal function is seen with no hydronephrosis or suspicious renal mass. Sequelae of near total colectomy again seen, with ileocolic anastomosis in the lower abdomen. Dilated distal ileal segments, with a mildly progressive degree of dilation since the prior CT, with air-flu id levels. No free air, free fluid or inflammatory stranding. No hernia, mass or bulky lymphadenopath y. The urinary bladder is without significant finding. No suspicious bony findings. IMPRESSION: Mildly progressive dilation of the distal ileal segments, with air-fluid levels. Finding s may relate to ileus or enteritis. Other stable findings as above.
--- NOTE | 2023-06-10 22:14 | ER ---
Nurse's Notes [facility] Name: Rico Mcneill Age: 53 yrs Sex: Male : 1970 Arrival Date: 06/10/2023 Time: 19:28 Bed 8 Private MD: Diagnosis: Noninfective gastroenteritis and colitis, unspecified Presentation: 06/10 19:29 Chief complaint: Patient states: new onset abdominal pain, tenderness and swelling 0200 lg3 this morning and worsening. HX of SBO with colostomy and colostomy reversal. pain /. states was here recently for same issue. Coronavirus screen: Client denies travel out of the [place] in the last 14 days. At this time, the client does not indicate any symptoms associated with coronavirus-19. Ebola Screen: No symptoms or risks identified at this time. Initial Sepsis Screen: Does the patient meet any 2 criteria? Yes Does the patient have a suspected source of infection? No. Patient's initial sepsis screen is negative. Risk Assessment: Do you want to hurt yourself or someone else? Patient reports no desire to harm self or others. Onset of symptoms was June 10, 2023. 19:29 Method Of Arrival: EMS: [facility] lg3 19:29 Acuity: OCTAVIO 3 lg3 Triage Assessment: 19:31 General: Appears in no apparent distress. comfortable, Behavior is calm, cooperative. lg3 Pain: Complains of pain in abdomen Pain does not radiate. Pain currently is 9 out of 10 on a pain scale. Is continuous. EENT: No deficits noted. No signs and/or symptoms were reported regarding the EENT system. Neuro: No deficits noted. Mcdaniel Agitation-Sedation Scale (RASS): 0 - Alert and Calm Level of Consciousness is awake, alert, obeys commands, Oriented to person, place, time, situation. Cardiovascular: No deficits noted. Denies chest pain, shortness of breath, Capillary refill < 3 seconds Clubbing of nail beds is absent JVD is absent Patient's skin is warm and dry. Respiratory: No deficits noted. Airway is patent Respiratory effort is even, unlabored, Respiratory pattern is regular, symmetrical. GI: Abdomen is round distended, Reports lower abdominal pain, upper abdominal pain. : No deficits noted. No signs and/or symptoms were reported regarding the genitourinary system. Derm: No deficits noted. No signs and/or symptoms reported regarding the dermatologic system. Skin is intact, is healthy with good turgor, Skin is dry, Skin is normal, Skin temperature is warm. Musculoskeletal: No deficits noted. No signs and/or symptoms reported regarding the musculoskeletal system. Circulation, motion, and sensation intact. Range of motion: intact in all extremities. Historical: - Allergies: 19:31 NKDA; lg3 - Home Meds: 19:31 None [Active]; lg3 - PMHx: 19:31 Hypertensive disorder; ileostomy; lg3 - PSHx: 19:31 ileostomy reversal ; October 2022; Small bowel resection with ileostomy; lg3 - Immunization history:: Adult Immunizations unknown, Client reports having NOT received the Covid vaccine. Last tetanus immunization: unknown, Flu vaccine is not up to date. - Social history:: Smoking status: Patient reports use of chewing tobacco. Patient/guardian denies using alcohol, street drugs. Screenin:33 [facility] ED Fall Risk Assessment (Adult) History of falling in the last 3 months, lg3 including since admission No falls in past 3 months (0 pts). Abuse screen: Denies threats or abuse. Denies injuries from another. Nutritional screening: No deficits noted. Tuberculosis screening: No symptoms or risk factors identified. Assessment: 19:33 General: see triage assessment. lg3 20:13 Reassessment: Patient appears in no apparent distress at this time. No changes from lg3 previously documented assessment. Patient and/or family updated on plan of care and expected duration. Pain level reassessed. Patient is alert, oriented x 3, equal unlabored respirations, skin warm/dry/pink. 21:38 Reassessment: Patient appears in no apparent distress at this time. No changes from lg3 previously documented assessment. Patient and/or family updated on plan of care and expected duration. Pain level reassessed. Patient is alert, oriented x 3, equal unlabored respirations, skin warm/dry/pink. 22:18 Reassessment: Patient appears in no apparent distress at this time. No changes from lg3 previously documented assessment. Patient and/or family updated on plan of care and expected duration. Pain level reassessed. Patient is alert, oriented x 3, equal unlabored respirations, skin warm/dry/pink. Vital Signs: 19:29 BP 119 / 78; Pulse 91; Resp 17 S; Temp 98.1(O); Pulse Ox 100% on R/A; Weight 65.77 kg lg3 (R); Height 6 ft. 1 in. (R); Pain 9/10; 20:13 BP 114 / 72; Pulse 84; Resp 17 S; Pulse Ox 100% on R/A; lg3 21:39 BP 116 / 72; Pulse 80; Resp 16 S; Pulse Ox 100% on R/A; lg3 22:19 BP 113 / 77; Pulse 81; Resp 16 S; Pulse Ox 99% on R/A; lg3 19:29 Body Mass Index 19.13 (65.77 kg, 185.42 cm) lg3 19:29 Pain Scale: Adult lg3 ED Course: 19:29 Patient arrived in ED. lg3 19:29 Ashlyn Ray, RN is Primary Nurse. lg3 19:31 Triage completed. lg3 19:31 Arm band placed on right wrist. lg3 19:32 Nimisha Hicks MD is Attending Physician. sp3 19:33 Patient has correct armband on for positive identification. Placed in gown. Bed in low lg3 position. Call light in reach. Side rails up X 1. Client placed on continuous cardiac and pulse oximetry monitoring. NIBP monitoring applied. Door closed. Noise minimized. Warm blanket given. 19:33 Patient maintains SpO2 saturation greater than 95% on room air. lg3 20:02 CBC with Diff Sent. lg3 20:02 CMP Sent. lg3 20:02 Lipase Sent. lg3 20:02 Urinalysis w/ reflexes Sent. lg3 20:02 Inserted saline lock: 22 gauge in right forearm, using aseptic technique. Blood lg3 collected. 20:24 Attending Physician role handed off by Nimisha Hicks MD ec2 20:24 Parminder Rodriguez MD is Attending Physician. ec2 21:17 CT Abd/Pelvis - IV Contrast Only In Process Unspecified. EDMS 22:19 No provider procedures requiring assistance completed. IV discontinued, intact, lg3 bleeding controlled, No redness/swelling at site. Pressure dressing applied. Administered Medications: No medications were administered Medication: 22:20 VIS not applicable for this client. lg3 Outcome: 22:13 Discharge ordered by . ec2 22:19 Discharged to Unknown pt denies having place of residence lg3 22:19 Condition: stable 22:19 Discharge instructions given to patient, Instructed on discharge instructions, follow up and referral plans. medication usage, Demonstrated understanding of instructions, follow-up care, medications, Prescriptions given X 1, 22:20 Patient left the ED. lg3 Signatures: Dispatcher [employer] Ashlyn Torres RN RN lg3 Nimisha Hicks MD MD sp3 Parminder Rodriguez MD MD ec2 Corrections: (The following items were deleted from the chart) 19:34 19:31 GI: Abdomen is round Reports lower abdominal pain, upper abdominal pain, lg3 lg3
--- NOTE | 2023-06-10 22:14 | EDPHYS ---
Physician Documentation [facility] Name: Rico Mcneill Age: 53 yrs Sex: Male : 1970 Arrival Date: 06/10/2023 Time: 19:28 Bed 8 Private MD: ED Physician Parminder Rodriguez HPI: 06/10 20:07 This 53 yrs old Male presents to ER via EMS with complaints of abdominal sp3 pain/distension. 20:07 53-year-old male with history of hypertension, prior small bowel resection with sp3 diverting ileostomy which was reversed in October of this year now presents to the ED with diffuse abdominal pain and abdominal distention for the last 48 hours. He denies any nausea, vomiting, diarrhea, back pain, shortness of breath, chest pain, fever, URI symptoms, trauma, or any other signs or symptoms on ROS at this time. Patient states that it has happened insidiously with no change in his diet or any other inciting event. Patient denies travel history or any known sick contacts.. Historical: - Allergies: 19:31 NKDA; lg3 - Home Meds: 19:31 None [Active]; lg3 - PMHx: 19:31 Hypertensive disorder; ileostomy; lg3 - PSHx: 19:31 ileostomy reversal ; October 2022; Small bowel resection with ileostomy; lg3 - Immunization history:: Adult Immunizations unknown, Client reports having NOT received the Covid vaccine. Last tetanus immunization: unknown, Flu vaccine is not up to date. - Social history:: Smoking status: Patient reports use of chewing tobacco. Patient/guardian denies using alcohol, street drugs. ROS: 20:10 Constitutional: Negative for fever, chills, and weight loss, Eyes: Negative for injury, sp3 pain, redness, and discharge, ENT: Negative for injury, pain, and discharge, Neck: Negative for injury, pain, and swelling, Cardiovascular: Negative for chest pain, palpitations, and edema, Respiratory: Negative for shortness of breath, cough, wheezing, and pleuritic chest pain, Back: Negative for injury and pain, MS/Extremity: Negative for injury and deformity, Skin: Negative for injury, rash, and discoloration, Neuro: Negative for headache, weakness, numbness, tingling, and seizure, Psych: Negative for depression, anxiety, suicide ideation, homicidal ideation, and hallucinations, Allergy/Immunology: Negative for hives, rash, and allergies, Endocrine: Negative for neck swelling, polydipsia, polyuria, polyphagia, and marked weight changes, Hematologic/Lymphatic: Negative for swollen nodes, abnormal bleeding, and unusual bruising, 20:10 All other systems are negative, Exam: 20:10 Constitutional: This is a well developed, well nourished patient who is awake, alert, sp3 and in no acute distress. Head/Face: Normocephalic, atraumatic. Eyes: Pupils equal round and reactive to light, extra-ocular motions intact. Lids and lashes normal. Conjunctiva and sclera are non-icteric and not injected. Cornea within normal limits. Periorbital areas with no swelling, redness, or edema. Neck: Trachea midline, no thyromegaly or masses palpated, and no cervical lymphadenopathy. Supple, full range of motion without nuchal rigidity, or vertebral point tenderness. No Meningismus. Chest/axilla: Normal chest wall appearance and motion. Nontender with no deformity. No lesions are appreciated. Cardiovascular: Regular rate and rhythm with a normal S1 and S2. No gallops, murmurs, or rubs. Normal PMI, no JVD. No pulse deficits. Respiratory: Lungs have equal breath sounds bilaterally, clear to auscultation and percussion. No rales, rhonchi or wheezes noted. No increased work of breathing, no retractions or nasal flaring. Back: No spinal tenderness. No costovertebral tenderness. Full range of motion. Skin: Warm, dry with normal turgor. Normal color with no rashes, no lesions, and no evidence of cellulitis. MS/ Extremity: Pulses equal, no cyanosis. Neurovascular intact. Full, normal range of motion. Neuro: Awake and alert, GCS 15, oriented to person, place, time, and situation. Cranial nerves II-XII grossly intact. Motor strength 5/5 in all extremities. Sensory grossly intact. Cerebellar exam normal. Normal gait. Psych: Awake, alert, with orientation to person, place and time. Behavior, mood, and affect are within normal limits. 20:10 Abdomen/GI: Mildly distended abdomen with mild diffuse pain to palpation. No peritoneal signs, rebound or guarding noted. Nonsurgical abdomen. Multiple surgical scars noted., Vital Signs: 19:29 BP 119 / 78; Pulse 91; Resp 17 S; Temp 98.1(O); Pulse Ox 100% on R/A; Weight 65.77 kg lg3 (R); Height 6 ft. 1 in. (R); Pain 9/10; 20:13 BP 114 / 72; Pulse 84; Resp 17 S; Pulse Ox 100% on R/A; lg3 21:39 BP 116 / 72; Pulse 80; Resp 16 S; Pulse Ox 100% on R/A; lg3 22:19 BP 113 / 77; Pulse 81; Resp 16 S; Pulse Ox 99% on R/A; lg3 19:29 Body Mass Index 19.13 (65.77 kg, 185.42 cm) lg3 19:29 Pain Scale: Adult lg3 MDM: 19:34 Patient medically screened. sp3 20:10 Data reviewed: vital signs, EMS record, old medical records, lab test result(s), sp3 radiologic studies. ED course: 53-year-old male with hypertension and extensive surgical history of the bowel. Prior diverting ileostomy secondary to small bowel resection has been reversed. Differential diagnosis includes ileus, small bowel obstruction, external compression, adhesions, functional abdominal pain, constipation, among others. I am not highly suspicious for vascular pathology including ischemia, AAA, dissection, or other urological pathology including kidney stone, UTI/pyelonephritis, or any other significant illness/pathology at this time including sepsis. Work-up will include laboratory values and CT scan of the abdomen and pelvis. If work-up is negative, consider discharge if patient is improving otherwise consider observation and surgical consultation if indicated. Patient will be signed out to night physician for final disposition.. 20:32 ED course: Patient signed out to me by previous physician, improved patient arrives ec2 today due to concern for abdominal pain. Plan is to follow-up lab work and CT imaging and reassess the patient. Anticipate if reassuring work-up patient can be discharged home. . 21:01 ED course: Patient's lab work is remarkable for a metabolic profile with appropriate ec2 electrolytes, slightly diminished GFR, lipase is elevated at 167. Urine is noninfectious appearing. CBC without leukocytosis or anemia noted. Plan is to follow-up CT scan of the abdomen and pelvis. . 22:08 ED course: CT abdomen pelvis shows possible ileus versus enteritis. . ec2 22:12 ED course: On reassessment patient is well-appearing in no acute distress, patient has ec2 been tolerating p.o. without any issue, will discharge home with prescription for Zofran, instructed him on [id number] Tylenol and ibuprofen use as well. Return precautions given. Presentation consistent with gastroenteritis.. 06/10 19:34 Order name: CBC with Diff; Complete Time: 20:24 sp3 06/10 19:34 Order name: CMP; Complete Time: 21:01 sp3 06/10 19:34 Order name: Lipase; Complete Time: 21:01 sp3 06/10 19:34 Order name: Urinalysis w/ reflexes; Complete Time: 21:01 sp3 06/10 19:34 Order name: CT Abd/Pelvis - IV Contrast Only; Complete Time: 22:07 sp3 06/10 19:34 Order name: IV Saline Lock; Complete Time: 20:02 sp3 06/10 19:34 Order name: Labs collected and sent; Complete Time: 20:02 sp3 Administered Medications: No medications were administered Disposition Summary: 06/10/23 22:13 Discharge Ordered Notes: Location: Home ec2 Condition: Stable ec2 Diagnosis - Noninfective gastroenteritis and colitis, unspecified ec2 Discharge Instructions: - Discharge Summary Sheet ec2 - Viral Gastroenteritis, Adult, [id number] ec2 Forms: - Medication Reconciliation Form ec2 - Thank You Letter ec2 - Antibiotic Education ec2 - Prescription Opioid Use ec2 - Patient Portal Instructions ec2 - Leadership Thank You Letter ec2 Prescriptions: - Zofran 4 mg Oral Tablet - take 1 tablet ORAL route every 12 hours As needed; 20 tablet; Refills: 0, ec2 Product Selection Permitted Signatures: Dispatcher [employer] Ashlyn Torres RN RN lg3 Nimisha Hicks MD MD sp3 Parminder Rodriguez MD MD ec2
[2023-06-11 00:40] VITALS: TEMP 98.1
[2023-06-11 00:57] VITALS: BP 113/77; O2SAT 99
== END 2023-06-10 22:20 | disposition home or self-care (01) ==
LOC: ER 19:28
DX: K52.9 Noninfective gastroenteritis and colitis, unspecified (principal)
CPT/HCPCS: 36415; 74177; 80053; 81001; 83690; 85025; Q9967

== ENCOUNTER 2023-08-28 13:27 | Inpatient (IN) | payer SELFPAY ==
[2023-08-28 14:04] LABS: Absolute Lymphocytes (CBC) 1.4 K/uL (0.7-4.9); Hematocrit 37.6 % (39.6-49.0); Lymphocytes % 28.1 % (15.3-44.8); MCV 85.2 fL (80-100); Platelets 264 thou/uL (152-406); RBC Red Blood Cell Count 4.41 M/uL (4.33-5.43)
[2023-08-28 14:09] LABS: Specific Gravity 1.024 (1.005-1.030); Urine Bacteria None Seen /HPF (<20); Urine Bilirubin NEGATIVE (Negative); Urine Blood Negative (Negative); Urine Clarity Turbid (Clear); Urine Color Yellow (Yellow); Urine Glucose NEGATIVE (Negative); Urine Mucus Slight /HPF (None Seen); Urine Protein 1+ (Negative); Urine RBC None Seen /HPF (None Seen); Urine Urobilinogen Normal (Normal)
[2023-08-28 14:21] LABS: Albumin 3.9 g/dL (3.4-5.0); Bilirubin Total 0.5 mg/dL (0.2-1.0); Potassium 3.8 mEq/L (3.5-5.1); Protein, Total 7.2 g/dL (6.4-8.2)
--- NOTE | 2023-08-28 14:23 | RAD REPORT ---
EXAM DESCRIPTION: CT - Stone Protocol - 08/28/2023 1:41 pm CLINICAL HISTORY: Abdominal pain. COMPARISON: May 2023 TECHNIQUE: Computed axial tomography of the abdomen pelvis was obtained without oral or IV contrast. Lack of IV and oral contrast limits evaluation of solid organs, appendix, bowel, and vessels. Bradshaw l reformatted images were obtained and reviewed. All CT scans are performed using dose optimization technique as appropriate and may include automated exposure control or mA/KV adjustment according to patient size. FINDINGS: Tiny right renal calculus. No hydronephrosis. Left renal calculus is not seen. No ureteral /bladder calculus. No hydronephrosis The liver, spleen, pancreas and adrenals appear grossly normal Moderate gastric dilatation. It appears that the patient has had most of the colon resected. There is residual rectum and portion of sigmoid colon. Portions of the small bowel are dilated up to 7 centim eters. No free air. No ascites. The wall of several loops of jejunum appears thickened IMPRESSION: Negative for a genitourinary calculus Moderate dilatation of small. Additionally the wall of several loops of jejunum appear thickened. The se findings may be secondary to an ileus or enteritis. Followup abdominal plain film series would be helpful to assess the small bowel caliber Moderate gastric dilatation
--- NOTE | 2023-08-28 15:21 | ER ---
Nurse's Notes [facility] Name: Rico Mcneill Age: 53 yrs Sex: Male : 1970 Arrival Date: 08/28/2023 Time: 13:27 Bed 8 Private MD: Diagnosis: Ileus, unspecified;Abdominal pain, Generalized Presentation: 08/28 14:14 Chief complaint: Patient states: ABDOMINAL PAIN STARTED YESTERDAY. DENIES VOMITING. db COMPLAINS OF NAUSEA. Coronavirus screen: Client denies travel out of the [place] in the last 14 days. At this time, the client does not indicate any symptoms associated with coronavirus-19. Ebola Screen: Patient negative for fever greater than or equal to 101.5 degrees Fahrenheit, and additional compatible Ebola Virus Disease symptoms Patient denies exposure to infectious person. Patient denies travel to an Ebola-affected area in the 21 days before illness onset. No symptoms or risks identified at this time. Initial Sepsis Screen: Does the patient meet any 2 criteria? No. Patient's initial sepsis screen is negative. Does the patient have a suspected source of infection? No. Patient's initial sepsis screen is negative. Risk Assessment: Do you want to hurt yourself or someone else? Patient reports no desire to harm self or others. Onset of symptoms was August 27, 2023. 14:14 Method Of Arrival: Ambulatory db 14:14 Acuity: OCTAVIO 3 db Triage Assessment: 14:16 General: Appears in no apparent distress. comfortable, Behavior is calm, cooperative. db Pain: Complains of pain in abdomen. Neuro: Level of Consciousness is awake, alert, obeys commands, Oriented to person, place, time, situation. GI: Abdomen is flat, non-distended, Reports lower abdominal pain. Historical: - Allergies: 14:16 NKDA; db - PMHx: 14:16 Hypertensive disorder; ileostomy; db - PSHx: 14:16 Small bowel resection with ileostomy; ileostomy reversal ; October 2022; db - Immunization history:: Adult Immunizations unknown. - Social history:: Smoking status: Patient denies any tobacco usage or history of. Smoking status: Patient reports use of chewing tobacco. Screenin:[address] [facility] ED Fall Risk Assessment (Adult) History of falling in the last 3 months, db including since admission No falls in past 3 months (0 pts) Confusion or Disorientation No (0 pts) Intoxicated or Sedated No (0 pts) Impaired Gait No (0 pts) Mobility Assist Device Used No (0 pt) Altered Elimination No (0 pt) Score/Fall Risk Level 0 - 2 = Low Risk Oriented to surroundings, Maintained a safe environment. Abuse screen: Denies threats or abuse. Denies injuries from another. Nutritional screening: No deficits noted. Tuberculosis screening: No symptoms or risk factors identified. Assessment: 16:02 Reassessment: Patient appears in no apparent distress at this time. Patient and/or db family updated on plan of care and expected duration. Pain level reassessed. Patient is alert, oriented x 3, equal unlabored respirations, skin warm/dry/pink. PT IS SITTING SPEAKING WITH HOSPITALIST. General: Appears in no apparent distress. comfortable, Behavior is calm, cooperative. Pain: Complains of pain in abdomen and left lower quadrant. Neuro: Level of Consciousness is awake, alert, obeys commands, Oriented to person, place, time, situation. Respiratory: Airway is patent Respiratory effort is even, unlabored, Respiratory pattern is regular, symmetrical. 20:30 GI: Bowel sounds Abdomen is tender to palpation. tl4 Vital Signs: 14:14 BP 115 / 87; Pulse 74; Resp 18; Temp 98.5; Pulse Ox 99% ; Weight 68.04 kg; Height 6 ft. db 1 in. ; 16:35 BP 124 / 73; Pulse 65; Resp 16; Pulse Ox 100% on R/A; db 17:29 BP 136 / 78; Pulse 72; Resp 16; Pulse Ox 99% ; ko1 14:14 Body Mass Index 19.79 (68.04 kg, 185.42 cm) db ED Course: 13:29 Patient arrived in ED. kb 13:29 [facility] Morrell [facility]C [facility]. kb 13:29 Parminder Rodriguez MD is Attending Physician. kb 13:43 CT Stone Protocol In Process Unspecified. EDMS 14:02 Inserted saline lock: 20 gauge in left wrist, using aseptic technique. Blood collected. zm 14:02 CBC with Diff Sent. zm 14:02 CMP Sent. zm 14:02 Lipase Sent. zm 14:02 Urinalysis w/ reflexes Sent. zm 14:15 Triage completed. db 14:16 Arm band placed on Patient placed in waiting room. db 15:20 Mónica Willoughby MD is Hospitalizing Provider. kb 16:02 Ranjana Eng, RN is Primary Nurse. db 16:03 Patient has correct armband on for positive identification. Warm blanket given. db 20:29 No provider procedures requiring assistance completed. Patient admitted, IV remains in tl4 place. 20:29 Provided Education on: ED process. tl4 Administered Medications: 16:02 Drug: NS 0.9% IV 1000 ml IV at 1000 ml once Route: IV; Rate: 1000 ml; Site: left db forearm; 20:36 Follow up: Response: No adverse reaction; IV Status: Completed infusion; IV Intake: tl4 1000ml Medication: 20:29 VIS not applicable for this client. tl4 Intake: 20:36 IV: 1000ml; Total: 1000ml. tl4 Outcome: 15:21 Decision to Hospitalize by Provider. kb 20:30 Admitted to Med/surg accompanied by tech, via wheelchair, room MS210, Report called to tlMagdalene Gates RN 20:30 Condition: stable 20:30 Instructed on the need for admit, 20:43 Patient left the ED. tl4 Signatures: Dispatcher [employer] EDMS Lauren Morrell, PECAN HULLER-C PECAN HULLER-Ckb Amy Diaz Kathy RN RN koRanjana Garcia, RN RN Rocky Velasco tl4 Corrections: (The following items were deleted from the chart) 14:16 14:14 Onset of symptoms was August 28, 2023 db db 14:17 14:16 Arm band placed on Patient placed in an exam room, db db 20:34 20:30 Admitted to Med/surg accompanied by tech, via wheelchair, room MS210, tl4 tl4
--- NOTE | 2023-08-28 15:21 | EDPHYS ---
Physician Documentation [facility] Name: Rico Mcneill Age: 53 yrs Sex: Male : 1970 Arrival Date: 08/28/2023 Time: 13:27 Bed 8 Private MD: ED Physician Parminder Rodriguez HPI: 08/28 15:49 This 53 yrs old Male presents to ER via Ambulatory with complaints of Abdominal Pain. kb 15:51 Patient is a 53-year-old male who presents for suprapubic and left lower quadrant kb abdominal pain, left flank pain, difficulty urinating and dark urine that started yesterday. Denies fever, nausea, vomiting, diarrhea.. Historical: - Allergies: 14:16 NKDA; db - PMHx: 14:16 Hypertensive disorder; ileostomy; db - PSHx: 14:16 Small bowel resection with ileostomy; ileostomy reversal ; October 2022; db - Immunization history:: Adult Immunizations unknown. - Social history:: Smoking status: Patient denies any tobacco usage or history of. Smoking status: Patient reports use of chewing tobacco. ROS: 15:49 Constitutional: Negative for fever, chills, and weight loss, kb 15:49 Abdomen/GI: Positive for abdominal pain, Negative for nausea, vomiting, and diarrhea, 15:49 Back: Positive for flank pain, on the left, 15:49 : Positive for difficulty urinating, 15:49 All other systems are negative, Exam: 15:49 Constitutional: This is a well developed, well nourished patient who is awake, alert, kb and in no acute distress. Head/Face: Normocephalic, atraumatic. ENT: Moist Mucous membranes Cardiovascular: Regular rate Respiratory: Respirations even and unlabored. No increased work of breathing. Talking in full sentences Skin: Warm, dry with normal turgor. Normal color. MS/ Extremity: Pulses equal, no cyanosis. Neurovascular intact. Full, normal range of motion. Neuro: Awake and alert, GCS 15, oriented to person, place, time, and situation. Moves all extremities. Normal gait. 15:49 Abdomen/GI: Inspection: abdomen appears normal, Bowel sounds: normal, Palpation: soft, in all quadrants, moderate abdominal tenderness, in the suprapubic area and left lower quadrant, Vital Signs: 14:14 BP 115 / 87; Pulse 74; Resp 18; Temp 98.5; Pulse Ox 99% ; Weight 68.04 kg; Height 6 ft. db 1 in. ; 16:35 BP 124 / 73; Pulse 65; Resp 16; Pulse Ox 100% on R/A; db 17:29 BP 136 / 78; Pulse 72; Resp 16; Pulse Ox 99% ; ko1 14:14 Body Mass Index 19.79 (68.04 kg, 185.42 cm) db MDM: 13:29 Patient medically screened. kb 15:50 Differential diagnosis: bowel obstruction, non-specific abd pain, Ureterolithiasis, kb urinary tract infection. Data reviewed: vital signs, nurses notes. Consideration of Admission/Observation Patient was admitted/placed on observation. Escalation of care including admission/observation considered. Management of patient was discussed with the following: Hospitalist: Hospitalist team, pt accepted for admission under Dr Willoughby. Historians other than the Patient: EMS: [facility]. Counseling: I had a detailed discussion with the patient and/or guardian regarding the historical points, exam findings, and any diagnostic results supporting the discharge/admit diagnosis, lab results, radiology results, the need for further work-up and treatment in the hospital. 08/28 13:30 Order name: CBC with Diff; Complete Time: 14:12 kb 08/28 13:30 Order name: CMP; Complete Time: 14:35 kb 08/28 13:30 Order name: Lipase; Complete Time: 14:35 kb 08/28 13:30 Order name: Urinalysis w/ reflexes; Complete Time: 14:12 kb 08/28 16:14 Order name: Basic Metabolic Panel EDMS 08/28 16:14 Order name: Basic Metabolic Panel EDMS 08/28 16:14 Order name: Basic Metabolic Panel EDMS 08/28 16:14 Order name: Basic Metabolic Panel EDMS 08/28 16:14 Order name: CBC with Automated Diff EDMS 08/28 16:14 Order name: CBC with Automated Diff EDMS 08/28 16:14 Order name: CBC with Automated Diff EDMS 08/28 16:14 Order name: CBC with Automated Diff EDMS 08/28 16:14 Order name: Lipase EDMS 08/28 16:14 Order name: Lipase EDMS 08/28 16:14 Order name: Lipid Profile EDMS 08/28 16:14 Order name: Lipid Profile EDMS 08/28 16:14 Order name: Magnesium EDMS 08/28 16:14 Order name: Magnesium EDMS 08/28 16:14 Order name: Magnesium EDMS 08/28 16:14 Order name: Magnesium EDMS 08/28 16:42 Order name: T4 Free; Complete Time: 17:38 EDMS 08/28 16:42 Order name: Thyroid Stimulating Hormone; Complete Time: 17:38 EDMS 08/28 16:42 Order name: Urinalysis w/ reflexes EDMS 08/28 16:42 Order name: Phosphorus EDMS 08/28 16:42 Order name: Phosphorus EDMS 08/28 16:42 Order name: Phosphorus EDMS 08/28 16:42 Order name: Phosphorus EDMS 08/28 13:30 Order name: CT Stone Protocol; Complete Time: 14:35 kb 08/28 16:14 Order name: CONS Physician Consult EDMS 08/28 13:30 Order name: IV Saline Lock; Complete Time: 14:02 kb 08/28 13:30 Order name: Labs collected and sent; Complete Time: 14:02 kb Administered Medications: 16:02 Drug: NS 0.9% IV 1000 ml IV at 1000 ml once Route: IV; Rate: 1000 ml; Site: left db forearm; 20:36 Follow up: Response: No adverse reaction; IV Status: Completed infusion; IV Intake: tl4 1000ml Disposition Summary: 08/28/23 15:21 Hospitalization Ordered Notes: Hospitalization Status: Observation kb Provider: Mónica Willoughby kb Condition: Stable kb Problem: new kb Symptoms: are unchanged kb Bed/Room Type: Standard Location: Telemetry/MedSur (Inpatient)(08/28/23 19:29) sp Room Assignment: [facility](08/28/23 19:29) sp Diagnosis - Ileus, unspecified kb - Abdominal pain, Generalized kb Forms: - Medication Reconciliation Form kb - SBAR form kb - Leadership Thank You Letter kb Addendum: 08/30/2023 08:58 I was immediately available for consultation during this patient's visit. I did not e c2 personally see the patient or discuss the patient with the KAILYN. . Signatures: Dispatcher [employer] [facility] Lauren Morrell FNP-C FNP-Analia Aguilar Kelly, RN RN kb3 Ranjana Eng RN RN db Parminder Rodriguez MD MD ec2 Rocky Juan tl4 Corrections: (The following items were deleted from the chart) 08/28 15:50 15:49 Abdomen/GI: Inspection: abdomen appears normal, Bowel sounds: normal, Palpation: kb soft, in all quadrants, moderate abdominal tenderness, in the suprapubic area, kb 17:39 15:21 Telemetry/MedSurg (observation) kb kb3 17:39 15:21 kb kb3 19:29 17:39 [facility] [[email or web address]] ER HOLD kb3 sp 19:29 17:39 ERHOLD- kb3 sp
[2023-08-28] MEDS ORDERED: NA CHLORIDE 0.9% 1,000 ML ONE (15:56)
[2023-08-28] MEDS ORDERED: ONDANSETRON 4 MG/2 ML VIAL IV PRN (16:06)
[2023-08-28] MEDS ORDERED: HYDROCODONE/APAP 5/325 MG TAB PO PRN (16:06)
[2023-08-28] MEDS ORDERED: ACETAMINOPHEN 500 MG TAB PO PRN (16:06)
[2023-08-28] MEDS ORDERED: SODIUM CHLORIDE 0.9% 10ML INJ IV PRN (16:11)
[2023-08-28] MEDS ORDERED: MAGNESIUM HYDROXIDE 8% 30 ML PO PRN (16:11)
--- NOTE | 2023-08-28 16:20 | P.HP ---
Certification for Inpatient With expected LOS: <2 Midnights Patient will require the following post-hospital care: None Practitioner: I am a practitioner with admitting privileges, knowledge of patient current condition, hospital course, and medical plan of care. Services: Services provided to patient in accordance with Admission requirements found in Title 42 Section 412.3 of the Code of Federal Regulations <Salvador Chávez - Last Filed: 08/28/23 16:24> Patient History Date of Service: 08/28/23 Reason for admission: Ileus, abdominal pain History of Present Illness: Mr. Mcneill a 53-year-old male patient with a history of ileostomy reversal in 2000presents to the emergency room with complaints of left lower abdominal pain. Patient report he has been having abdominal pain for few months, but the pain got severe 9 out of 10 last night. Associated symptoms include weakness on the left side, nausea and weakness. No aggravating and relieving factors. patient denies constipation, fever, chills, Chest Pain, shortness of breath. ED course Vital signs blood pressure 115/87, pulse 74, respiration 18, temperature 98.5, pulse 99%, Initial laboratory findings CBC is reassuring, basic metabolic panel shows mildly elevation of creatinine 1.43. CT abdomen shows Moderate ilatation of small. Additionally the wall of several loops of jejunum appear hickened. These findings may be secondary to an ileus or enteritis. Admitting the patient with a diagnosis of abdominal pain, ileus. - Past Medical/Surgical History Diabetic: No -: Hypothyroidism -: Bipolar Disorder -: HTN -: bowel obstruction -: Colectomy -: Ileostomy with reversal Psychosocial/ Personal History: Patient is homeless. - Family History Father -: Cancer Mother -: Heart disease - Social History Alcohol use: No CD- Drugs: No Caffeine use: Yes <Salvador Chávez - Last Filed: 08/28/23 16:24> Date of Service: 08/28/23 <Mónica Willoughby - Last Filed: 08/28/23 16:55> Allergies No Known Drug Allergies Allergy (Verified 09/04/22 02:36) Unknown Home Medications: NK [No Home Meds] 10/02/22 Review of Systems 10-point ROS is otherwise unremarkable <Salvador Chávez - Last Filed: 08/28/23 16:24> Physical Examination - Physical Exam General: Alert, Oriented x3 HEENT: Atraumatic, Normocephalic Neck: Supple, 2+ carotid pulse no bruit Respiratory: Clear to auscultation bilaterally, Normal air movement Cardiovascular: No edema, Normal pulses, Regular rate/rhythm Capillary refill: <2 Seconds Gastrointestinal: Normal bowel sounds (left lower abdominal pain, nause), Tenderness Musculoskeletal: No clubbing, No swelling, No contractures Integumentary: No rashes, No breakdown Neurological: Normal speech, Normal tone, Normal affect - Studies Laboratory Data (last 24 hrs) 08/28/23 08/28/23 13:57 13:57 WBC 5.00 Hgb 12.3 L Hct 37.6 L Plt Count 264 Sodium 142 Potassium 3.8 BUN 15 Creatinine 1.43 H Glucose 73 L Total Bilirubin 0.5 AST 19 ALT 21 Alkaline Phosphatase 73 Lipase 48 <Salvador Chávez - Last Filed: 08/28/23 16:24> - Studies Laboratory Data (last 24 hrs) 08/28/23 08/28/23 13:57 13:57 WBC 5.00 Hgb 12.3 L Hct 37.6 L Plt Count 264 Sodium 142 Potassium 3.8 BUN 15 Creatinine 1.43 H Glucose 73 L Total Bilirubin 0.5 AST 19 ALT 21 Alkaline Phosphatase 73 Lipase 48 <Mónica Willoughby - Last Filed: 08/28/23 16:55> Assessment and Plan - Problems (Diagnosis) (1) Ileus Current Visit: Yes Status: Acute (2) Abdominal pain, left lower quadrant Current Visit: Yes Status: Acute (3) Enteritis Onset Date: 02/04/18 Current Visit: No Status: Acute (4) History of ileostomy Current Visit: No Status: Chronic - Plan Ileus Abdominal pain left lower quadrant Enteritis History of ileostomy Patient was admitted with left lower abdominal pain last 1 day, pain is severe 10 out of 10, with mild nausea but no vomiting denies constipation or diarrhea. CT abdomen 08/28/23 shows Moderate ilatation of small. Additionally the wall of several loops of jejunum appear hickened. These findings may be secondary to an ileus or enteritis. Started IV fluid, n.p.o., IV antibiotics Consulted to surgeon Dr. Burdick-informed Monitor and replete electrolytes Vital signs blood pressure 115/87, pulse 74, respiration 18, temperature 98.5, pulse 99% CODE STATUS Full code Diet N.p.o. DVT prophylaxis Lovenox Discharge Plan: Home Plan to discharge in: 48 Hours - Advance Directives Does patient have a Living Will: No Does patient have a Durable POA for Healthcare: No - Code Status/Comfort Care Code Status Assessed: Yes (Full code) Code Status: Full Code Physician Review: Patient Assessed, Agree with Above Assessment and Plan Critical Care: No Time Spent Managing Pts Care (In Minutes): 55 (Minutes) <Salvador Chávez - Last Filed: 08/28/23 16:24> - Plan Pt seen and examined. I agree withe note by the DANCE PROFESSOR. Pt is a 53-yo male with past medical history of ileostomy reversal in 2000 who presents with complaints of left lower abdominal pain that started over the past 24 hours. The abd pain is located on the left sided, non-radiating, and sharp in nature with severity of 6/10. Pt had BM yesterday. He is passing gas. On admission, lab studies show creatinine of 1.43. CT abdomen shows Moderate ilatation of small. Additionally the wall of several loops of jejunum appear thickened. These findings suggest ileus or enteritis. At bedside, pt is in NAD. He has positive bowel sound. A/P: Ileus: Per CT abd. Will keep pt NPO, give IVF and follow up KUB. Hx of abd surgery. S/p removal of ileostomy back. Code: full <Mónica Willoughby - Last Filed: 08/28/23 16:55>
[2023-08-28 17:36] LABS: Thyroid Stimulating Hormone 8.59 uIU/mL (0.358-3.740)
[2023-08-28] MEDS: ENOXAPARIN 40 MG/0.4 ML SQ SCH (21:30)
[2023-08-28] MEDS: D5 0.45 NS 1,000 ML IV SCH (21:30)
[2023-08-28] MEDS: Ciprofloxacin 200mg IV 200 MG/100 ML IV.SOLN. IV SCH (21:33)
[2023-08-28] MEDS: METRONIDAZOLE 500mg IVPB 500 MG/100 ML BAG IV SCH (21:33)
[2023-08-28] MEDS: MORPHINE 2 MG/ML SYR IV PRN (21:34)
[2023-08-28 21:46] VITALS: BMI 19.1
[2023-08-29] MEDS: METRONIDAZOLE 500mg IVPB 500 MG/100 ML BAG IV SCH ×3 (01:00→16:51)
[2023-08-29] MEDS: D5 0.45 NS 1,000 ML IV SCH ×3 (03:00→16:52)
[2023-08-29 03:42] LABS: Absolute Lymphocytes (CBC) 1.5 K/uL (0.7-4.9); Hematocrit 32.3 % (39.6-49.0); Lymphocytes % 37.7 % (15.3-44.8); MCV 85.1 fL (80-100); MPV 8.1 fL (7.6-11.3); Platelets 188 thou/uL (152-406); RBC Red Blood Cell Count 3.79 M/uL (4.33-5.43)
[2023-08-29 03:59] LABS: Phosphorus 4.3 mg/dL (2.5-4.9); Potassium 3.4 mEq/L (3.5-5.1)
[2023-08-29] MEDS: KCL 20 MEQ/100 mL IVPB 20 MEQ/100 ML BAG IV SCH ×2 (07:17→10:18)
[2023-08-29] MEDS ORDERED: POTASSIUM CL SA 10 MEQ TAB PO ONE (07:57)
--- NOTE | 2023-08-29 08:52 | RAD REPORT ---
EXAM DESCRIPTION: RAD - Abdomen 1 View (KUB) - 08/29/2023 8:36 am CLINICAL HISTORY: Ileus Pain COMPARISON: Abdomen 1 View (KUB) dated 06/06/2023; Abdomen 1 View (KUB) dated 02/27/2019; Stone Protoc ol dated 08/28/2023 FINDINGS: There is significant distention of bowel loops in the central abdomen. This includes the r ectosigmoid colon as well as several significantly dilated bowel loops in the mid and upper abdomen w hich may be a colon or small bowel. Wall thickening is also present with with significant thickening of folds mucosal folds noted. No free air seen. IMPRESSION: Findings likely a indicate bowel obstruction in the central and upper abdomen. This may be related to adhesion or internal herniation. Cannot exclude underlying bowel ischemia on this radio graph, although no pneumatosis is present.
[2023-08-29] MEDS ORDERED: PANTOPRAZOLE 40 MG INJ IVP SCH (09:00)
[2023-08-29] MEDS ORDERED: INFLUENZA VACCINE (for 6+ mo) 0.5 ML DOSE IMVAC ONE (10:00)
[2023-08-29] MEDS: ENOXAPARIN 40 MG/0.4 ML SQ SCH (10:19)
[2023-08-29] MEDS: Ciprofloxacin 200mg IV 200 MG/100 ML IV.SOLN. IV SCH ×2 (10:19→21:19)
[2023-08-29 12:01] VITALS: O2SAT 95
[2023-08-29 19:53] LABS: Specific Gravity < 1.005 (1.005-1.030); Urine Bacteria None Seen /HPF (<20); Urine Bilirubin NEGATIVE (Negative); Urine Blood Negative (Negative); Urine Clarity Clear (Clear); Urine Color Colorless (Yellow); Urine Glucose NEGATIVE (Negative); Urine Mucus Slight /HPF (None Seen); Urine Protein NEGATIVE (Negative); Urine RBC None Seen /HPF (None Seen); Urine Urobilinogen Normal (Normal)
[2023-08-29] MEDS: MORPHINE 2 MG/ML SYR IV PRN (21:24)
[2023-08-30] MEDS: METRONIDAZOLE 500mg IVPB 500 MG/100 ML BAG IV SCH (01:52)
[2023-08-30 03:23] LABS: Absolute Lymphocytes (CBC) 1.3 K/uL (0.7-4.9); Hematocrit 31.9 % (39.6-49.0); MCV 85.1 fL (80-100); MPV 8.4 fL (7.6-11.3); Platelets 167 thou/uL (152-406); RBC Red Blood Cell Count 3.75 M/uL (4.33-5.43)
[2023-08-30 03:41] LABS: Magnesium 1.8 mg/dL (1.6-2.4); Phosphorus 3.2 mg/dL (2.5-4.9); Potassium 3.7 mEq/L (3.5-5.1)
[2023-08-30 05:44] VITALS: BP 117/59; TEMP 97.9
[2023-08-30] MEDS: D5 0.45 NS 1,000 ML IV SCH (07:05)
[2023-08-30] MEDS ORDERED: MORPHINE 4 MG/ML SYR IV PRN (08:17)
--- NOTE | 2023-08-30 08:17 | P.PN ---
Subjective Date of Service: 08/30/23 Chief Complaint: Ileus, abdominal pain - Physical Exam General: Alert, Oriented x3 HEENT: Atraumatic, Normocephalic Neck: Supple, 2+ carotid pulse no bruit Respiratory: Clear to auscultation bilaterally, Normal air movement Cardiovascular: No edema, Normal pulses, Regular rate/rhythm Capillary refill: <2 Seconds Gastrointestinal: Normal bowel sounds (left lower abdominal pain, nause), Tenderness Musculoskeletal: No clubbing, No swelling, No contractures Integumentary: No rashes, No breakdown Neurological: Normal speech, Normal tone, Normal affect Review of Systems per HPI Physical Examination - Vital Signs Temperature: 97.9 F Blood Pressure: 117/59 Pulse: 78 Respirations: 18 Pulse Ox (%): 97 Assessment And Plan - Plan Assessment plan Ileus Abdominal pain left lower quadrant Enteritis History of ileostomy GI consult, surgery consult Patient was admitted with left lower abdominal pain last 1 day, pain is severe 10 out of 10, with mild nausea but no vomiting denies constipation or diarrhea. CT abdomen 08/28/23 shows Moderate ilatation of small. Additionally the wall of several loops of jejunum appear hickened. These findings may be secondary to an ileus or enteritis. Started IV fluid, n.p.o., IV antibiotics Cipro, Flagyl, as needed analgesics Consulted to surgeon Dr. Burdick-informed NG tube to low intermittent suction Vital signs blood pressure 115/87, pulse 74, respiration 18, temperature 98.5, pulse 99% repeat KUB ordered 07/30 Hypokalemia Trend electrolytes replace as needed Microcytic anemia hemoglobin 12.3, 10.8, 10.6 Trend H&H Hypothyroidism TSH 8.590 CODE STATUS Full code Diet N.p.o. DVT prophylaxis Lovenox Discharge Plan: Home, homeless Plan to discharge in: 48 Hours Discharge Plan: Other (Homeless) Physician Review: Patient Assessed, Agree with Above Assessment and Plan
--- NOTE | 2023-08-30 11:00 | RAD REPORT ---
EXAM DESCRIPTION: RAD - Abdomen 1 View (KUB) - 08/30/2023 8:05 am CLINICAL HISTORY: reevaluation after eating COMPARISON: Abdomen 1 View (KUB) dated 08/29/2023; Abdomen 1 View (KUB) dated 06/06/2023; Abdomen 1 Vi ew (KUB) dated 02/27/2019 TECHNIQUE: Single AP view of the abdomen. FINDINGS: Progressive distention of small bowel throughout the abdomen. Bowel caliber measures up to 5.6 cm. No appreciable pneumatosis. No suspicious calcifications. No significant bony abnormality. IMPRESSION: Progressive distention of small bowel throughout the abdomen.
--- NOTE | 2023-08-30 11:34 | P.DS ---
Admission Date: 08/28/23 Discharge Date: 08/30/23 Disposition: AMA-LEFT AGAINST MEDICAL ADVIC Discharge Condition: FAIR Reason for Admission: Ileus, abdominal pain Brief History of Present Illness: Mr. Mcneill a 53-year-old male patient with a history of ileostomy reversal in 2000presents to the emergency room with complaints of left lower abdominal pain. Patient report he has been having abdominal pain for few months, but the pain got severe 9 out of 10 last night. Associated symptoms include weakness on the left side, nausea and weakness. No aggravating and relieving factors. patient denies constipation, fever, chills, Chest Pain, shortness of breath. ED course Vital signs blood pressure 115/87, pulse 74, respiration 18, temperature 98.5, pulse 99%, Initial laboratory findings CBC is reassuring, basic metabolic panel shows mildly elevation of creatinine 1.43. CT abdomen shows Moderate ilatation of small. Additionally the wall of several loops of jejunum appear hickened. These findings may be secondary to an ileus or enteritis. Admitting the patient with a diagnosis of abdominal pain, ileus. Hospital Course: Pt presented with left sided abdominal pain. Imaging study was concerning for ileus. We admitted pt and kkept him NPO. We gave IVF and consulted Gen surgeon. Meanwhile pt had daily bowel movements and bowel sounds. Gen surgeon recommended CLD before advancing his diet. Repeat KUB showed Progressive distention of small bowel throughout the abdomen. Pt later left AMA on 08/30/23. Vital Signs/Physical Exam: Temp Pulse Resp BP Pulse Ox 97.9 F 78 18 117/59 L 97 08/30/23 08:18 08/30/23 08:18 08/30/23 08:18 08/30/23 08:18 08/30/23 08:18 Laboratory Data at Discharge: WBC 3.30 thou/uL (4.3-10.9) L 08/30/23 03:04 Hgb 10.6 g/dL (13.6-17.9) L 08/30/23 03:04 Hct 31.9 % (39.6-49.0) L 08/30/23 03:04 Plt Count 167 thou/uL (152-406) 08/30/23 03:04 Sodium 141 mEq/L (136-145) 08/30/23 03:04 Potassium 3.7 mEq/L (3.5-5.1) 08/30/23 03:04 BUN 7 mg/dL (7-18) 08/30/23 03:04 Creatinine 1.23 mg/dL (0.70-1.30) 08/30/23 03:04 Glucose 91 mg/dL (74-106) 08/30/23 03:04 Phosphorus 3.2 mg/dL (2.5-4.9) 08/30/23 03:04 Magnesium 1.8 mg/dL (1.6-2.4) 08/30/23 03:04 Total Bilirubin 0.5 mg/dL (0.2-1.0) 08/28/23 13:57 AST 19 U/L (15-37) 08/28/23 13:57 ALT 21 U/L (16-61) 08/28/23 13:57 Alkaline Phosphatase 73 U/L (45-117) 08/28/23 13:57 Triglycerides 112 mg/dL (<150) 08/29/23 03:15 Cholesterol 137 mg/dL (<200) 08/29/23 03:15 HDL Cholesterol 54 mg/dL (40-60) 08/29/23 03:15 Cholesterol/HDL Ratio 2.54 08/29/23 03:15 Lipase 61 U/L (13-75) 08/29/23 03:15 Home Medications: NK [No Home Meds] 10/02/22 Physician Discharge Instructions: Mr. Velázquez a pleasant 53-year-old male patient with a past medical history significant for ileostomy reversal who was admitted to the [facility] on 520 for abdominal pain. Patient was treated with IV antibiotics and IV fluid and analgesics as needed On 09/08/2019, patient was seen on morning rounds and deemed medically stable for discharge. . 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 Patient was provided prescriptions for Flagyl and Cipro. The patient and family members were given the opportunity to ask questions and reported no further questions. Furthermore, all questions were answered to the best of my ability. A copy of this discharge summary will be sent to the above providers to facilitate continuity of care. . 1. Please call and schedule a follow-up appointment with your PCP in 3-5 days 2. Please call and schedule a follow-up appointment with [employer]orer [employer] in 1 month - Please follow-up with your PCP for medication refills/adjustments -Please call if any questions regarding hospital stay -Please call nursing station at [phone] if any nursing or medication questions -Return to the emergency room if symptoms worsen. Diet: Regular Activity: Ad tomeka Followup: NONE,NONE [Primary Care Provider] -
--- NOTE | 2023-08-30 12:08 | P.PN ---
Subjective Date of Service: 08/30/23 Chief Complaint: Ileus, abdominal pain I have been informed that the patient has left AGAINST MEDICAL ADVICE prior to my arrival. Physical Examination - Vital Signs Temperature: 97.9 F Blood Pressure: 117/59 Pulse: 78 Respirations: 18 Pulse Ox (%): 97 Assessment And Plan - Current Problems (Diagnosis) (1) Bowel obstruction Status: Acute - Plan Patient is a 53-year-old man who presented with signs and symptoms of enteritis versus bowel obstruction. -KUB showed worsening clinical picture and as such I would have recommended ongoing treatment. -Patient left AGAINST MEDICAL ADVICE prior to my arrival and I was informed after the patient had physically left and as such was unable to discuss the case and ongoing care plan with the patient today. Physician Review: Patient Assessed, Agree with Above Assessment and Plan
--- NOTE | 2023-08-30 13:27 | CON ---
Date of Consultation: 08/29/2023 Brief History Of Present Illness: The patient is a 53-year-old male with past medical history of exp loratory laparotomy for bowel obstruction at [facility] with ileostomy creation in 2000, ultimately having ileostomy reversal, who presented to the hospital with complaints of abdominal pain predominantly ass ociated with nausea, weakness, vomiting, decreased p.o. intake, decreased bowel function, who was adm itted with the possible diagnosis of ileus/bowel obstruction. During my examination, the patient req uires frequent redirection. He explains that he is currently homeless and has had multiple psychiatr ic issues before, including bipolar disorder and he does not have any ongoing medical care or medical treatment. He cannot recall his diet, but states that he feels essentially pain free at this point after having a large bowel movement hours prior to my arrival and he states he is currently pain free . Past Medical History: Hypothyroidism, bipolar disorder, hypertension, bowel obstruction. Past Surgical History: Small bowel resection, ileostomy creation, and ileostomy takedown with primar y anastomosis. Social History: The patient is homeless. He admits to tobacco usage. Denies recreational drug use. Denies alcohol usage. His father has cancer history. His mother had heart disease. Medications: He takes no medications. Allergies: HE HAS NO KNOWN DRUG ALLERGIES. Physical Examination: At time of my examination: General: He is awake, alert, oriented. Psychiatric: He is appropriate and conversive. HEENT: He is normocephalic. Sclerae anicteric. Mucous membranes are moist. Oropharynx clear. Neck: Supple without JVD. Chest: Normal expansion and excursion. Cardiovascular: Regular rate and rhythm. Pulmonary: Clear to auscultation bilaterally. Abdomen: Soft, nontender with mild distention. No rebound. No guarding. No focal peritonitis. We ll-healed surgical midline scars evident with obvious ostomy reversal site. There is laxity of abdom inal wall consistent with possible herniation, but no tenderness. No obstructive process as this all feels relatively reducible based on my exam, but his abdominal wall is quite thin during the exam. Laboratory Data: He had a laboratory exam, which revealed a white blood cell count of 3.9, hemoglobi n 10.8, hematocrit 32.3, platelet count was 188. His chemistry showed a sodium 141, potassium 3.4, c hloride 113, carbon dioxide is 25, BUN 15, creatinine 1.2, glucose is 99, phosphorus is 4.3, magnesiu m 2.0. He had imaging performed, which included an abdomen CT on 08/28 officially read as negative f or genitourinary calculus. Moderate distention of small bowel. Additionally, wall of several loops of jejunum appear thickened. These findings may be secondary to ileus or enteritis. Moderate gastri c distention is evident. He had a KUB x-ray prior to my arrival on 08/29, which was also officially read as findings likely indicate bowel obstruction in the central and upper abdomen. This may be rel ated to adhesions and internal herniation cannot exclude underlying bowel ischemia on this radiograph , although no pneumatosis was present. Assessment And Plan: This is a 53-year-old male who presents with signs and symptoms of enteritis/po ssible bowel obstruction. 1.IV fluid hydration. 2.Ice chips okay from a surgical standpoint as the patient has a surprisingly benign abdominal exam and has not had any nausea, vomiting, and has had a large bowel movement. After his KUB x-ray by his report, was significant symptomatic improvement by his admission symptomatic resolution with no ongo ing pain. No nausea, no vomiting and is now hungry and desiring food and as such, I recommended a cl ear liquid diet and serial abdominal exams. Continue medical management. Repeat KUB in the morning. If his KUB shows improvement, we will consider advancement of his diet based on his clinical exam a nd imaging report. I have explained the risks, benefits, and alternatives of the above stated plan. The patient agreed to proceed as ind icated. ARPITA/CAROLE Voice ID: [id number] Report ID: [id number]
== END 2023-08-30 09:50 | disposition left against medical advice (07) | DRG 389 ==
LOC: ER 13:27 → ERHOLD 16:04 → 2ND 19:50
PROVIDERS: ADMIT Hospitalist; ATTEND Hospitalist
DX: K56.699 Other intestinal obstruction unspecified as to partial versus complete obstruction (principal); Z59.00 Homelessness unspecified; I10 Essential (primary) hypertension; E03.9 Hypothyroidism, unspecified; K52.9 Noninfective gastroenteritis and colitis, unspecified; F17.220 Nicotine dependence, chewing tobacco, uncomplicated; Z93.2 Ileostomy status; Z53.29 Procedure and treatment not carried out because of patient's decision for other reasons
CPT/HCPCS: 36415; 74018; 74176; 76377; 80048; 80053; 80061; 81001; 83690; 83735; 84100; 84439; 84443; 85025; 96360; 96361; 99285; C9113; J0744; J1650; J2270; J2405; J3480; J7030; J7799

== ENCOUNTER → 2023-10-31 | Emergency (ER) | payer SELFPAY ==
[~2023-10-31] MED LIST: KETOROLAC 30 MG/ML INJ ONE; NA CHLORIDE 0.9% 1,000 ML ONE
[2023-10-31 21:04] LABS: SARS-CoV-2 Antigen Rapid Res Negative (Negative)
[2023-10-31 23:09] LABS: Absolute Eosinophils 0.1 K/uL (0-0.5); Absolute Lymphocytes (CBC) 1.5 K/uL (0.7-4.9); Basophils % 0.6 % (0-1.3); Eosinophils % 1.5 % (0-4.4); Hematocrit 32.8 % (39.6-49.0); Lymphocytes % 26.8 % (15.3-44.8); MCV 85.9 fL (80-100); Platelets 192 thou/uL (152-406); RBC Red Blood Cell Count 3.81 M/uL (4.33-5.43)
[2023-10-31 23:33] LABS: Albumin 3.5 g/dL (3.4-5.0); Albumin/Globulin Ratio 1.4 (1.1-1.8); Anion Gap 8.7 mEq/L (5.0-15.0); Bilirubin Total 0.9 mg/dL (0.2-1.0); Globulin 2.5 g/dL (2.3-3.5); Potassium 3.7 mEq/L (3.5-5.1)
--- NOTE | 2023-10-31 23:38 | ER ---
Nurse's Notes [facility] Name: Rico Mcneill Age: 53 yrs Sex: Male : 1970 Arrival Date: 10/31/2023 Time: 20:14 Bed 17 Private MD: Diagnosis: Dehydration Presentation: 10/30 20:19 Chief complaint: Patient states: I just ache all over. EMS states: He is complaining of vc1 generalized body aches, his friends say he just didn't look right so we brought him in. Coronavirus screen: Vaccine status: Patient reports receiving the 2nd dose of the covid vaccine. Client denies travel out of the [place] in the last 14 days. At this time, the client does not indicate any symptoms associated with coronavirus-19. Ebola Screen: Patient negative for fever greater than or equal to 101.5 degrees Fahrenheit, and additional compatible Ebola Virus Disease symptoms Patient denies exposure to infectious person. Patient denies travel to an Ebola-affected area in the 21 days before illness onset. No symptoms or risks identified at this time. Initial Sepsis Screen: Does the patient meet any 2 criteria? No. Patient's initial sepsis screen is negative. Does the patient have a suspected source of infection? No. Patient's initial sepsis screen is negative. Risk Assessment: Do you want to hurt yourself or someone else? Patient reports no desire to harm self or others. Onset of symptoms was October 31, 2023. 20:19 Method Of Arrival: EMS: [facility] vc1 20:19 Acuity: OCTAVIO 4 vc1 Triage Assessment: 20:23 General: Appears in no apparent distress. Behavior is calm, cooperative, appropriate vc1 for age. Pain: Complains of pain in generalized body aches "All over" Pain currently is 6 out of 10 on a pain scale. Quality of pain is described as aching, Pain began suddenly, This morning Is continuous, Also complains of no other associated symptoms. EENT: No deficits noted. No signs and/or symptoms were reported regarding the EENT system. Neuro: Level of Consciousness is awake, alert, obeys commands, Oriented to person, place, time, situation, Appropriate for age. Cardiovascular: No deficits noted. Heart tones S1 S2. Respiratory: Airway is patent Respiratory effort is even, unlabored, Respiratory pattern is regular, symmetrical, Breath sounds are clear bilaterally. GI: No deficits noted. No signs and/or symptoms were reported involving the gastrointestinal system. : No deficits noted. No signs and/or symptoms were reported regarding the genitourinary system. Derm: Skin is red. Musculoskeletal: Reports pain in entire body. Historical: - Allergies: 20:21 NKDA; vc1 - PMHx: 20:21 Hypertensive disorder; ileostomy; vc1 - PSHx: 20:21 ileostomy reversal ; October 2022; Small bowel resection with ileostomy; vc1 - Immunization history:: Client reports receiving the 2nd dose of the Covid vaccine, Flu vaccine is not up to date. - Social history:: Smoking status: Patient reports use of chewing tobacco. Patient denies any tobacco usage or history of. Screenin:22 [facility] ED Fall Risk Assessment (Adult) History of falling in the last 3 months, vc1 including since admission No falls in past 3 months (0 pts) Confusion or Disorientation No (0 pts) Intoxicated or Sedated No (0 pts) Impaired Gait No (0 pts) Mobility Assist Device Used No (0 pt) Altered Elimination No (0 pt) Score/Fall Risk Level 0 - 2 = Low Risk Oriented to surroundings, Maintained a safe environment, Educated pt \\T\\ family on fall prevention, incl call for assistance when getting out of bed. Abuse screen: Denies threats or abuse. Nutritional screening: No deficits noted. Tuberculosis screening: No symptoms or risk factors identified. Assessment: 20:30 General: Appears in no apparent distress. comfortable, Behavior is calm, cooperative. jw7 20:30 Pain: Complains of pain in Pain all over Pain does not radiate. Pain currently is 6 out jw7 of 10 on a pain scale. Quality of pain is described as aching, Pain began suddenly, Is continuous. Neuro: Level of Consciousness is awake, alert, obeys commands, Oriented to person, place, time, situation. Cardiovascular: Heart tones S1 S2 present Capillary refill < 3 seconds Clubbing of nail beds is absent JVD is absent Patient's skin is warm and dry. Respiratory: Airway is patent Trachea midline Respiratory effort is even, unlabored, Respiratory pattern is regular, symmetrical, Breath sounds are clear bilaterally. GI: Abdomen is flat, non-distended, Bowel sounds present X 4 quads. Abd is soft and non tender X 4 quads. : No deficits noted. No signs and/or symptoms were reported regarding the genitourinary system. EENT: No deficits noted. No signs and/or symptoms were reported regarding the EENT system. Derm: Skin is intact, is healthy with good turgor, Skin is dry, Skin is normal, Skin temperature is warm. Musculoskeletal: Circulation, motion, and sensation intact. Range of motion: intact in all extremities. 21:30 Reassessment: Patient appears in no apparent distress at this time. No changes from [facility] previously documented assessment. Patient and/or family updated on plan of care and expected duration. Pain level reassessed. Patient is alert, oriented x 3, equal unlabored respirations, skin warm/dry/pink. 22:30 Reassessment: Patient appears in no apparent distress at this time. Patient and/or jw7 family updated on plan of care and expected duration. Pain level reassessed. Patient is alert, oriented x 3, equal unlabored respirations, skin warm/dry/pink. Patient states symptoms have improved. 23:21 Reassessment: Patient appears in no apparent distress at this time. No changes from [facility] previously documented assessment. Patient and/or family updated on plan of care and expected duration. Pain level reassessed. Patient is alert, oriented x 3, equal unlabored respirations, skin warm/dry/pink. 23:38 General: Discharge pending completion of IV Fluids. 7 10/31 00:30 Reassessment: Patient appears in no apparent distress at this time. No changes from [facility] previously documented assessment. Patient and/or family updated on plan of care and expected duration. Pain level reassessed. Patient is alert, oriented x 3, equal unlabored respirations, skin warm/dry/pink. 01:30 Reassessment: Patient appears in no apparent distress at this time. Patient and/or jw7 family updated on plan of care and expected duration. Pain level reassessed. Patient is alert, oriented x 3, equal unlabored respirations, skin warm/dry/pink. Patient states feeling better. Patient states symptoms have improved. Vital Signs: 10/30 20:19 BP 132 / 75; Pulse 95; Resp 16; Temp 98.1; Pulse Ox 99% ; Weight 65.77 kg; Height 6 ft. vc1 1 in. ; Pain 6/10; 21:15 BP 112 / 74; Pulse 71; Resp 16 S; Pulse Ox 100% on R/A; jw7 22:00 BP 114 / 71; Pulse 69; Resp 16 S; Pulse Ox 100% on R/A; jw7 23:00 BP 111 / 71; Pulse 64; Resp 17 S; Pulse Ox 100% on R/A; jw7 10/31 00:00 BP 115 / 69; Pulse 91; Resp 16 S; Pulse Ox 100% on R/A; jw7 01:20 BP 95 / 66; Pulse 75; Resp 15 S; Pulse Ox 100% on R/A; jw7 10/30 20:19 Body Mass Index 19.13 (65.77 kg, 185.42 cm) vc1 10/30 20:19 Pain Scale: Adult vc1 ED Course: 10/30 20:17 Patient arrived in ED. sb4 20:17 Denice Higginbotham PA-C is PHCP. sb4 20:17 Saad Alberto DO is Attending Physician. sb4 20:21 Triage completed. vc1 20:22 Arm band placed on right wrist. vc1 20:23 Patient has correct armband on for positive identification. Bed in low position. Pulse vc1 ox on. NIBP on. 20:30 Provided Education on: Use of call light. jw7 20:33 Mihaela Roger, RN is Primary Nurse. jw7 20:42 Flu Sent. jr12 20:42 SARS RAPID Sent. jr12 21:00 Inserted saline lock: 22 gauge in left forearm, using aseptic technique. jw7 23:00 CK Sent. jw7 23:00 UAM Sent. jw7 23:00 CBC with Diff Sent. jw7 23:00 CMP Sent. jw7 23:19 PO fluids given. sandwich given. jw7 10/31 01:45 No provider procedures requiring assistance completed. IV discontinued, intact, jw7 bleeding controlled, No redness/swelling at site. Pressure dressing applied. Administered Medications: 10/30 21:00 Drug: NS 0.9% IV 1000 ml IV at 1 bolus Per protocol; 1000 mL bolus Route: IV; Rate: 1 jw7 bolus; Site: left forearm; 23:08 Follow up: Response: No adverse reaction; IV Status: Completed infusion; IV Intake: jw7 1000ml 21:00 Drug: TORadol - Ketorolac IVP 15 mg IVP once Route: IVP; Site: left forearm; jw7 22:55 Follow up: Response: No adverse reaction; Marked relief of symptoms; Pain is decreased jw7 23:18 Drug: NS 0.9% IV 1000 ml IV at 1 bolus Per protocol; 1000 mL bolus Route: IV; Rate: 1 jw7 bolus; Site: left forearm; 10/31 01:46 Follow up: Response: No adverse reaction; IV Status: Completed infusion; IV Intake: jw7 1000ml Medication: 10/30 20:29 VIS not applicable for this client. vc1 Intake: 23:08 IV: 1000ml; Total: 1000ml. jw7 10/31 01:46 IV: 1000ml; Total: 2000ml. jw7 Outcome: 10/30 23:38 Discharge ordered by MD. verdugo 10/31 01:45 Discharged to home ambulatory, jw7 Condition: stable Discharge instructions given to patient, Instructed on discharge instructions, follow up and referral plans. Demonstrated understanding of instructions, follow-up care, 01:46 Patient left the ED. jw7 Signatures: Alejandra Mack RN RN vc1 Mihaela Roger RN RN jw7 Denice Higginbotham, PA-C PA-C sb4 Kathleen Stubbs jr12
--- NOTE | 2023-10-31 23:38 | EDPHYS ---
Physician Documentation [facility] Name: Rico Mcneill Age: 53 yrs Sex: Male : 1970 Arrival Date: 10/31/2023 Time: 20:14 Bed 17 Private MD: ED Physician Saad Alberto HPI: 10/30 20:24 This 53 yrs old Male presents to ER via EMS with complaints of generalized pain. sb4 20:37 patient states that he started experiencing generalized body pain that started this sb4 afternoon. he also states that bystanders told him he looked pale, ill, eyes sunk in, "zombie" like. he denies any URI symptoms, fevers, GI symptoms. of note, he is homeless. Historical: - Allergies: 20:21 NKDA; vc1 - PMHx: 20:21 Hypertensive disorder; ileostomy; vc1 - PSHx: 20:21 ileostomy reversal ; October 2022; Small bowel resection with ileostomy; vc1 - Immunization history:: Client reports receiving the 2nd dose of the Covid vaccine, Flu vaccine is not up to date. - Social history:: Smoking status: Patient reports use of chewing tobacco. Patient denies any tobacco usage or history of. ROS: 20:37 Abdomen/GI: Negative for abdominal pain, nausea, vomiting, diarrhea, and constipation, sb4 20:37 Constitutional: Positive for body aches, 20:37 All other systems are negative, Exam: 20:37 Head/Face: Normocephalic, atraumatic. Eyes: Extra-ocular motions intact. Periorbital sb4 areas with no swelling, redness, or edema. ENT: Mucous membranes moist. Cardiovascular: Regular rate and rhythm with a normal S1 and S2. Respiratory: Lungs have equal breath sounds bilaterally, clear to auscultation and percussion. No rales, rhonchi or wheezes noted. No increased work of breathing, no retractions or nasal flaring. Abdomen/GI: Soft, non-tender, no distension. MS/ Extremity: Pulses equal, no cyanosis. Neurovascular intact. Full, normal range of motion. Neuro: Awake and alert, GCS 15, oriented to person, place, time, and situation. Motor strength 5/5 in all extremities. Sensory grossly intact. 20:37 Constitutional: The patient appears in no acute distress, alert, awake, 20:37 Skin: Appearance: Color: face sunburnt, Vital Signs: 20:19 BP 132 / 75; Pulse 95; Resp 16; Temp 98.1; Pulse Ox 99% ; Weight 65.77 kg; Height 6 ft. vc1 1 in. ; Pain 6/10; 21:15 BP 112 / 74; Pulse 71; Resp 16 S; Pulse Ox 100% on R/A; jw7 22:00 BP 114 / 71; Pulse 69; Resp 16 S; Pulse Ox 100% on R/A; jw7 23:00 BP 111 / 71; Pulse 64; Resp 17 S; Pulse Ox 100% on R/A; jw7 10/31 00:00 BP 115 / 69; Pulse 91; Resp 16 S; Pulse Ox 100% on R/A; jw7 01:20 BP 95 / 66; Pulse 75; Resp 15 S; Pulse Ox 100% on R/A; jw7 10/30 20:19 Body Mass Index 19.13 (65.77 kg, 185.42 cm) vc1 10/30 20:19 Pain Scale: Adult vc1 MDM: 10/30 20:17 Patient medically screened. sb4 20:37 Differential Diagnosis flu, dehydration, rhabdo. sb4 23:36 Data reviewed: vital signs, nurses notes, lab test result(s), radiologic studies, and sb4 as a result, I will discharge patient. Consideration of Admission/Observation Escalation of care including admission/observation considered. Care significantly affected by the following chronic conditions: Hypertension. Care significantly affected by the following Social Determinants of Health: Poor access to healthcare and/or lack of insurance, Inadequate housing. Counseling: I had a detailed discussion with the patient and/or guardian regarding the historical points, exam findings, and any diagnostic results supporting the discharge/admit diagnosis, lab results, to return to the emergency department if symptoms worsen or persist or if there are any questions or concerns that arise at home. ED course: CK mildly elevated, likely secondary to dehydration, causing myalgias. received 2L of fluid, vitals stable, safe for discharge home. 10/30 20:23 Order name: CBC with Diff; Complete Time: 23:21 sb4 10/30 20:23 Order name: CMP; Complete Time: 23:35 sb4 10/30 20:23 Order name: SARS RAPID sb4 10/30 20:23 Order name: Flu sb4 10/30 20:23 Order name: CK; Complete Time: 23:35 sb4 10/30 20:23 Order name: UAM sb4 10/30 21:04 Order name: Influenza Screen (A ; Complete Time: 21:22 EDMS 10/30 21:04 Order name: SARS-COV-2 Antigen Rapid; Complete Time: 21:22 EDMS 10/30 20:23 Order name: IV Saline Lock; Complete Time: 21:15 sb4 10/30 20:23 Order name: Labs collected and sent; Complete Time: 23:00 sb4 Administered Medications: 21:00 Drug: NS 0.9% IV 1000 ml IV at 1 bolus Per protocol; 1000 mL bolus Route: IV; Rate: 1 jw7 bolus; Site: left forearm; 23:08 Follow up: Response: No adverse reaction; IV Status: Completed infusion; IV Intake: jw7 1000ml 21:00 Drug: TORadol - Ketorolac IVP 15 mg IVP once Route: IVP; Site: left forearm; jw7 22:55 Follow up: Response: No adverse reaction; Marked relief of symptoms; Pain is decreased jw7 23:18 Drug: NS 0.9% IV 1000 ml IV at 1 bolus Per protocol; 1000 mL bolus Route: IV; Rate: 1 jw7 bolus; Site: left forearm; 10/31 01:46 Follow up: Response: No adverse reaction; IV Status: Completed infusion; IV Intake: jw7 1000ml Disposition: 10/30 21:18 I was immediately available on-site in the Emergency Department for consultation in the ms3 care of the patient. Disposition Summary: 10/31/23 23:38 Discharge Ordered Notes: Location: Home sb4 Problem: new sb4 Symptoms: have improved sb4 Condition: Stable sb4 Diagnosis - Dehydration sb4 Followup: sb4 - With: Emergency Department - When: As needed - Reason: Trouble breathing, Worsening of condition Discharge Instructions: - Discharge Summary Sheet sb4 - Dehydration, Adult sb4 Forms: - Thank You Letter sb4 - Patient Portal Instructions sb4 - Leadership Thank You Letter sb4 Signatures: Dispatcher [employer] EDSaad Gutierrez DO DO ms3 Alejandra Mack RN RN vc1 Mihaela Roger RN RN jw7 Brown, Denice, PA-C PA-C sb4
[2023-11-01 03:22] VITALS: BP 95/66; TEMP 98.1; O2SAT 100
== END ==
LOC: ER 20:14
DX: E86.0 Dehydration (principal)
CPT/HCPCS: 36415; 80053; 82550; 85025; 87804; 87811; 96361; 96374; 99284; J7030

== ENCOUNTER 2024-02-09 18:27 | Emergency (ER) | payer SELFPAY ==
[2024-02-09 19:51] LABS: Absolute Eosinophils 0.3 K/uL (0-0.5); Absolute Lymphocytes (CBC) 0.9 K/uL (0.7-4.9); Absolute Monocytes 0.6 K/uL (0.1-1.3); Absolute Neutrophil 2.9 K/uL (1.8-8.0); Basophils % 0.8 % (0-1.3); Eosinophils % 6.3 % (0-4.4); Hematocrit 36.3 % (39.6-49.0); Hemoglobin 12.1 g/dL (13.6-17.9); MCH 29.7 pg (27.0-35.0); MCHC 33.4 g/dL (32.0-36.0); MCV 88.9 fL (80-100); MPV 7.7 fL (7.6-11.3); Monocytes % 13.2 % (3.3-12.3); Neutrophils % 60.7 % (41.7-73.7); Nucleated Red Blood Cells % 0.1 % (0-0); Platelets 226 thou/uL (152-406); RBC Red Blood Cell Count 4.08 M/uL (4.33-5.43); Red Cell Distribution Width 14.5 % (12.1-15.2)
[2024-02-09] MEDS ORDERED: NA CHLORIDE 0.9% 1,000 ML ONE ×2 (19:51→22:01)
[2024-02-09 20:06] LABS: Albumin 3.7 g/dL (3.4-5.0); Albumin/Globulin Ratio 1.1 (1.1-1.8); Anion Gap 8.6 mEq/L (5.0-15.0); Bilirubin Total 0.4 mg/dL (0.2-1.0); Globulin 3.5 g/dL (2.3-3.5); Potassium 3.6 mEq/L (3.5-5.1); Protein, Total 7.2 g/dL (6.4-8.2)
--- NOTE | 2024-02-09 20:41 | RAD REPORT ---
EXAM DESCRIPTION: CT - Abdomen Pelvis Wo Contrast - 02/09/2024 8:31 pm CLINICAL HISTORY: Abdominal pain. ABD PAIN COMPARISON: [facility] Protocol dated 08/28/2023; Abdomen 1 View (KUB) dated 08/29/2023; Abdomen Pelvis W C ontrast dated 06/10/2023; Abdomen Pelvis Wo Contrast dated 06/05/2023 TECHNIQUE: CT imaging of the abdomen and pelvis was performed without contrast. Solid organ, bowel a nd vascular assessment is limited due to lack of IV and oral contrast. All CT scans are performed using dose optimization technique as appropriate and may include automated exposure control or mA/KV adjustment according to patient size. FINDINGS: The lower lung childress are clear. The liver, spleen, pancreas, adrenal glands and kidneys are within normal limits for a limited non-co ntrast examination. There is significant colon distention present with postsurgical changes in the region sigmoid colon. No free air or abscess. The appendix is not identified as a discrete structure, however, no secondary findings of appendicitis are identified. The osseous structures are within normal limits. IMPRESSION: Diffusely prominent and distended appearance to the colon is seen. Postsurgical changes are present in the sigmoid region. This may indicate ileus. Elsewhere, no acute finding is seen. A limited non-contrast examination was performed as detailed.
--- NOTE | 2024-02-09 20:53 | ER ---
Nurse's Notes [facility] Name: Rico Mcneill Age: 53 yrs Sex: Male : 1970 Arrival Date: 02/09/2024 Time: 18:27 Bed 22 Private MD: Diagnosis: Ileus, unspecified Presentation: 02/08 18:54 Chief complaint: Patient states: Dysuria, abdominal pain, yellow urine since Thursday. ll1 Coronavirus screen: Client denies travel out of the [place] in the last 14 days. At this time, the client does not indicate any symptoms associated with coronavirus-19. Ebola Screen: Patient denies travel to an Ebola-affected area in the 21 days before illness onset. Initial Sepsis Screen: Does the patient meet any 2 criteria? No. Patient's initial sepsis screen is negative. Does the patient have a suspected source of infection? No. Patient's initial sepsis screen is negative. Risk Assessment: Do you want to hurt yourself or someone else? Patient reports no desire to harm self or others. Onset of symptoms was February 05, 2024. 18:54 Method Of Arrival: Ambulatory 1 18:54 Acuity: OCTAVIO 3 ll1 Triage Assessment: 18:53 General: Appears uncomfortable, Behavior is calm, cooperative, appropriate for age. iw Pain: Complains of pain in abdomen Quality of pain is described as aching. GI: Reports lower abdominal pain, upper abdominal pain. : Reports burning with urination, pain with urination. Historical: - Allergies: 18:55 NKDA; ll1 - PMHx: 18:55 Hypertensive disorder; ileostomy; ll1 - PSHx: 18:55 ileostomy reversal ; October 2022; Small bowel resection with ileostomy; ll1 - Immunization history:: Adult Immunizations up to date. - Infectious Disease History:: Denies. - Social history:: Smoking status: Patient reports use of chewing tobacco. Patient denies any tobacco usage or history of. Screenin:11 [facility] ED Fall Risk Assessment (Adult) History of falling in the last 3 months, ha1 including since admission No falls in past 3 months (0 pts) Confusion or Disorientation No (0 pts) Intoxicated or Sedated No (0 pts) Impaired Gait No (0 pts) Mobility Assist Device Used No (0 pt) Altered Elimination No (0 pt) Score/Fall Risk Level 0 - 2 = Low Risk Oriented to surroundings, Maintained a safe environment, Educated pt \T\ family on fall prevention, incl call for assistance when getting out of bed, Hourly rounding (assess needs \T\ fall precautionary measures) done. Abuse screen: Denies threats or abuse. Denies injuries from another. Nutritional screening: No deficits noted. Tuberculosis screening: No symptoms or risk factors identified. Assessment: 19:40 General: Appears uncomfortable, Behavior is calm, cooperative. Pain: Complains of pain ha1 in pelvis Pain does not radiate. Pain currently is 8 out of 10 on a pain scale. Quality of pain is described as aching, Pain began 2-3 days ago. Neuro: Level of Consciousness is awake, alert, obeys commands, Oriented to person, place, time, situation. Cardiovascular: Capillary refill < 3 seconds Patient's skin is warm and dry. Respiratory: Airway is patent Respiratory effort is even, unlabored, Respiratory pattern is regular, symmetrical. GI: Abdomen is round distended, Bowel sounds present X 4 quads. Abdomen is tender to palpation in right lower quadrant and left lower quadrant Reports distention of lower abdomen. : Reports burning with urination, urinary frequency, since Thursday. Derm: Skin is pink, warm \T\ dry. Musculoskeletal: Circulation, motion, and sensation intact. Range of motion: intact in all extremities. 20:40 Reassessment: Patient and/or family updated on plan of care and expected duration. Pain ha1 level reassessed. Patient is alert, oriented x 3, equal unlabored respirations, skin warm/dry/pink. 21:40 Reassessment: Patient and/or family updated on plan of care and expected duration. Pain ha1 level reassessed. Patient is alert, oriented x 3, equal unlabored respirations, skin warm/dry/pink. 22:40 Reassessment: Patient and/or family updated on plan of care and expected duration. Pain ha1 level reassessed. Patient is alert, oriented x 3, equal unlabored respirations, skin warm/dry/pink. 23:40 Reassessment: Patient and/or family updated on plan of care and expected duration. Pain ha1 level reassessed. Patient is alert, oriented x 3, equal unlabored respirations, skin warm/dry/pink. 02/09 00:20 Reassessment: report given to BRITTNY Avendano. ha1 Vital Signs: 02/08 18:54 BP 108 / 73; Pulse 77; Resp 18; Temp 97.8; Pulse Ox 100% ; Weight 65.77 kg; Height 6 ll1 ft. 1 in. ; Pain 9/10; 19:45 BP 109 / 70; Pulse 72; Resp 18; Pulse Ox 100% on R/A; ha1 20:40 BP 114 / 68; Pulse 71; Resp 16 S; Pulse Ox 98% on R/A; ha1 21:45 BP 111 / 80; Pulse 77; Resp 16 S; Pulse Ox 100% on R/A; ha1 22:40 BP 113 / 77; Pulse 68; Resp 17 S; Pulse Ox 100% on R/A; ha1 23:50 BP 112 / 78; Pulse 67; Resp 16; Temp 97.9(T); Pulse Ox 100% on R/A; ha1 18:54 Body Mass Index 19.13 (65.77 kg, 185.42 cm) ll1 18:54 Pain Scale: Adult ll1 ED Course: 18:31 Patient arrived in ED. mr 18:53 [facility] Morrell[facility] kb 18:53 Parminder Rodriguez MD is Attending Physician. kb 18:55 Triage completed. ll1 18:55 Arm band placed on. ll1 19:42 CBC with Diff Sent. ha1 19:42 CMP Sent. ha1 19:42 Lipase Sent. ha1 19:46 Initial lab(s) drawn, by or, sent to lab. Inserted saline lock: 22 gauge in left vk forearm, using aseptic technique. Blood collected. 20:30 Patient has correct armband on for positive identification. Placed in gown. Bed in low ha1 position. Call light in reach. Side rails up X 1. 20:33 Abdomen In Process Unspecified. EDMS 20:56 [facility] TC called for patient transfer, spoke with Will. ty 21:32 [facility] called back for [id number] with General Surgery. ty 21:36 Admin and approval. ty 02/09 00:26 No provider procedures requiring assistance completed. Patient transferred, IV remains ha1 in place. 00:27 Provided Education on: need for transfer . ha1 Administered Medications: 02/08 19:40 Drug: NS 0.9% IV 1000 ml IV at 1 bolus Per protocol; 1000 mL bolus Route: IV; Rate: 1 ha1 bolus; Site: left forearm; 23:00 Follow up: Response: No adverse reaction; IV Status: Completed infusion; IV Intake: ha1 1000ml 22:20 Drug: NS 0.9% IV 1000 ml IV at 125 ml/hr continuous Route: IV; Rate: 125 ml/hr; Site: ha1 left forearm; 02/09 00:20 Follow up: Response: No adverse reaction; IV Status: Infusion continued; IV Intake: ha1 350ml Medication: 00:27 VIS not applicable for this client. ha1 Intake: 02/08 23:00 IV: 1000ml; Total: 1000ml. ha1 02/09 00:20 IV: 350ml; Total: 1350ml. ha1 Outcome: 02/08 20:52 ER care complete, transfer ordered by MD. squires 02/09 00:26 Transferred by ground EMS to [facility], Transfer form ha1 completed. X-rays sent w/ patient. Condition: stable Discharge instructions given to patient, Instructed on the need for transfer, Demonstrated understanding of instructions, 00:28 Patient left the ED. ha1 Signatures: Dispatcher [employer] EDMS Lauren Morrell, HEALTH UNDERWRITER-C HEALTH UNDERWRITER-Ckb Saira Crowe, Reg Reg mr Ashlie Goetz, Beth Estrada RN, RN RN 1 Josi Bernardo RN RN 1 Sharmin Recio Tylor ty Corrections: (The following items were deleted from the chart) 02/08 21:05 19:45 BP 114 / 68; Pulse 72bpm; Resp 18bpm; Pulse Ox 100% RA; ha1 ha1
--- NOTE | 2024-02-09 20:53 | EDPHYS ---
Physician Documentation [facility] Name: Rico Mcneill Age: 53 yrs Sex: Male : 1970 Arrival Date: 02/09/2024 Time: 18:27 Bed 22 Private MD: ED Physician Parminder Rodriguez HPI: 02/08 18:53 This 53 yrs old Male presents to ER via Unassigned with complaints of Urinary Problem. kb 18:53 Pt is a 53 year old male who presents for dark urine, burning with urination, and abd kb distention that started 5 days ago. Denies fever. . Historical: - Allergies: 18:55 NKDA; ll1 - PMHx: 18:55 Hypertensive disorder; ileostomy; ll1 - PSHx: 18:55 ileostomy reversal ; October 2022; Small bowel resection with ileostomy; ll1 - Immunization history:: Adult Immunizations up to date. - Infectious Disease History:: Denies. - Social history:: Smoking status: Patient reports use of chewing tobacco. Patient denies any tobacco usage or history of. ROS: 18:53 Constitutional: As per HPI kb Exam: 18:53 Constitutional: This is a well developed, well nourished patient who is awake, alert, kb and in no acute distress. Head/Face: Normocephalic, atraumatic. ENT: Moist Mucous membranes Cardiovascular: Regular rate Respiratory: Respirations even and unlabored. No increased work of breathing. Talking in full sentences Skin: Warm, dry with normal turgor. Normal color. MS/ Extremity: Pulses equal, no cyanosis. Neurovascular intact. Full, normal range of motion. Neuro: Awake and alert, GCS 15, oriented to person, place, time, and situation. Moves all extremities. Normal gait. 18:53 Abdomen/GI: Inspection: distension, that is mild, Palpation: soft, in all quadrants, mild abdominal tenderness, in all quadrants, Vital Signs: 18:54 BP 108 / 73; Pulse 77; Resp 18; Temp 97.8; Pulse Ox 100% ; Weight 65.77 kg; Height 6 ll1 ft. 1 in. ; Pain 9/10; 19:45 BP 109 / 70; Pulse 72; Resp 18; Pulse Ox 100% on R/A; ha1 20:40 BP 114 / 68; Pulse 71; Resp 16 S; Pulse Ox 98% on R/A; ha1 21:45 BP 111 / 80; Pulse 77; Resp 16 S; Pulse Ox 100% on R/A; ha1 22:40 BP 113 / 77; Pulse 68; Resp 17 S; Pulse Ox 100% on R/A; ha1 23:50 BP 112 / 78; Pulse 67; Resp 16; Temp 97.9(T); Pulse Ox 100% on R/A; ha1 18:54 Body Mass Index 19.13 (65.77 kg, 185.42 cm) ll1 18:54 Pain Scale: Adult ll1 MDM: 18:53 Patient medically screened. kb 20:56 Differential diagnosis: bowel obstruction, ileus, dehydration. Data reviewed: vital kb signs, nurses notes. 20:57 Consideration of Admission/Observation Escalation of care including kb admission/observation considered. pt will be transferred due to capacity. Pt has been to [facility] in the past, last surgery was there. Requests transfer to [facility] instead of [employer]. Counseling: I had a detailed discussion with the patient and/or guardian regarding the historical points, exam findings, and any diagnostic results supporting the discharge/admit diagnosis, lab results, radiology results, the need to transfer to another facility, This facility is at capacity. Will transfer to [facility] for continuity of care. . 21:35 Management of patient was discussed with the following: Dr Agosto accepts pt for kb transfer to [facility]. 02/08 18:55 Order name: CBC with Diff; Complete Time: 20:04 kb 18 18:55 Order name: CMP; Complete Time: 20:07 kb 02/08 18:55 Order name: Lipase; Complete Time: 20:07 kb 18 20:10 Order name: Abdomen ; Complete Time: 20:42 EDMS 18 18:55 Order name: IV Saline Lock; Complete Time: 19:42 kb 18 18:55 Order name: Labs collected and sent; Complete Time: 19:42 kb Administered Medications: 19:40 Drug: NS 0.9% IV 1000 ml IV at 1 bolus Per protocol; 1000 mL bolus Route: IV; Rate: 1 ha1 bolus; Site: left forearm; 23:00 Follow up: Response: No adverse reaction; IV Status: Completed infusion; IV Intake: ha1 1000ml 22:20 Drug: NS 0.9% IV 1000 ml IV at 125 ml/hr continuous Route: IV; Rate: 125 ml/hr; Site: ha left forearm; 02/09 00:20 Follow up: Response: No adverse reaction; IV Status: Infusion continued; IV Intake: ha1 350ml Disposition Summary: 02/09/24 20:52 Transfer Ordered Notes: Transfer Location: [facility] kb Reason: Higher level of care kb Condition: Stable kb Problem: new kb Symptoms: are unchanged kb Accepting Physician: (02/10/24 00:28) ha1 Diagnosis - Ileus, unspecified kb Forms: - Medication Reconciliation Form kb - SBAR form kb Signatures: Dispatcher [employer] [facility] Lauren Morrell, JEREMY-C ELECTROPLATING LABORER-Beth Claros, RN RN 1 Josi Bernardo, BRITTNY RN ha1 Corrections: (The following items were deleted from the chart) 02/08 20:10 18:55 Abdomen Pelvis W Con+CT.RAD.BRZ ordered. [facility] 02/09 00:28 02/08 20:52 Dr squires ha1
[2024-02-10 01:07] VITALS: BP 112/78; TEMP 97.9; O2SAT 100
== END 2024-02-10 00:28 | disposition short-term general hospital (02) ==
LOC: ER 18:27
DX: K56.7 Ileus, unspecified (principal)
CPT/HCPCS: 36415; 74176; 80053; 83690; 85025; 96360; 96361; 99285; J7030

== ENCOUNTER 2024-04-02 10:20 | Emergency (ER) | payer SELFPAY ==
[2024-04-02 11:13] LABS: Absolute Basophils 0.1 K/uL (0-0.5); Absolute Eosinophils 0.2 K/uL (0-0.5); Absolute Lymphocytes (CBC) 1.5 K/uL (0.7-4.9); Absolute Monocytes 0.5 K/uL (0.1-1.3); Absolute Neutrophil 2.8 K/uL (1.8-8.0); Basophils % 1.1 % (0-1.3); Eosinophils % 3.6 % (0-4.4); Hematocrit 33.6 % (39.6-49.0); Hemoglobin 10.8 g/dL (13.6-17.9); Lymphocytes % 29.5 % (15.3-44.8); MCH 28.1 pg (27.0-35.0); MCHC 32.2 g/dL (32.0-36.0); MCV 87.2 fL (80-100); MPV 7.9 fL (7.6-11.3); Monocytes % 10.4 % (3.3-12.3); Neutrophils % 55.4 % (41.7-73.7); Platelets 247 thou/uL (152-406); RBC Red Blood Cell Count 3.85 M/uL (4.33-5.43)
[2024-04-02 11:17] LABS: Specific Gravity 1.022 (1.005-1.030); Sqamous Epithelial <5 /HPF (None Seen); Urine Bacteria <20 /HPF (<20); Urine Bilirubin NEGATIVE (Negative); Urine Blood Negative (Negative); Urine Clarity Clear (Clear); Urine Color Yellow (Yellow); Urine Culture Reflex Order NOT NEEDED; Urine Glucose NEGATIVE (Negative); Urine Ketones NEGATIVE (Negative); Urine Microscopic Reflex YN ORDER UMIC; Urine Mucus Slight /HPF (None Seen); Urine Nitrite NEGATIVE (Negative); Urine Protein TRACE (Negative); Urine RBC <5 /HPF (None Seen); Urine Urobilinogen Normal (Normal); Urine WBC <5 /HPF (<5); Urine WBC Clump Rare /HPF (None Seen); Urine pH 5.5 (5.0-7.0)
[2024-04-02 11:38] LABS: Barbiturates NEGATIVE (NEGATIVE); Benzodiazepines NEGATIVE (NEGATIVE); Cocaine NEGATIVE (NEGATIVE); METHAMPHETAM NEGATIVE (NEGATIVE); Methadone NEGATIVE (NEGATIVE); Opiates NEGATIVE (NEGATIVE); Phencyclidine NEGATIVE (NEGATIVE); THC Cannibis NEGATIVE (NEGATIVE)
[2024-04-02 11:38] LABS: Albumin 3.9 g/dL (3.4-5.0); Albumin/Globulin Ratio 1.3 (1.1-1.8); Anion Gap 7.6 mEq/L (5.0-15.0); Bilirubin Total 0.8 mg/dL (0.2-1.0); Potassium 3.6 mEq/L (3.5-5.1); Protein, Total 6.9 g/dL (6.4-8.2)
[2024-04-02] MEDS ORDERED: NA CHLORIDE 0.9% 500 ML ONE (12:18)
--- NOTE | 2024-04-02 12:44 | EDPHYS ---
Physician Documentation [facility] Name: Rico Mcneill Age: 54 yrs Sex: Male : 1970 Arrival Date: 04/02/2024 Time: 10:20 Bed 12 Private MD: Rashaun Cerna HPI: 04/02 12:40 This 54 yrs old Male presents to ER via Ambulatory with complaints of Knee diego Pain, Knee Swelling. 12:40 The patient presents with swelling. The complaints affect the left knee. Context: The diego problem was sustained at an unknown site. Modifying factors: The symptoms are alleviated by nothing. the symptoms are aggravated by nothing. Treatment prior to arrival includes: no previous treatment. The patient has not experienced similar symptoms in the past. Historical: - Allergies: : NKDA; hb - PMHx: : ileostomy; Hypertensive disorder; hb - PSHx: :58 Small bowel resection with ileostomy; ileostomy reversal ; October 2022; hb - Immunization history:: Adult Immunizations up to date. - Infectious Disease History:: Denies. - Social history:: Smoking status: Patient denies any tobacco usage or history of. - Family history:: not pertinent. ROS: 12:40 Constitutional: Negative for fever, chills, and weight loss, Eyes: Negative for injury, diego pain, redness, and discharge, ENT: Negative for injury, pain, and discharge, Neck: Negative for injury, pain, and swelling, Cardiovascular: Negative for chest pain, palpitations, and edema, Respiratory: Negative for shortness of breath, cough, wheezing, and pleuritic chest pain, Abdomen/GI: Negative for abdominal pain, nausea, vomiting, diarrhea, and constipation, Back: Negative for injury and pain, : Negative for injury, bleeding, discharge, and swelling, Skin: Negative for injury, rash, and discoloration, Neuro: Negative for headache, weakness, numbness, tingling, and seizure, Psych: Negative for depression, anxiety, suicide ideation, homicidal ideation, and hallucinations, Allergy/Immunology: Negative for hives, rash, and allergies, Endocrine: Negative for neck swelling, polydipsia, polyuria, polyphagia, and marked weight changes, Hematologic/Lymphatic: Negative for swollen nodes, abnormal bleeding, and unusual bruising, 12:40 MS/extremity: Positive for of the left knee, Exam: 12:40 Constitutional: This is a well developed, well nourished patient who is awake, alert, diego and in no acute distress. Head/Face: Normocephalic, atraumatic. Eyes: Pupils equal round and reactive to light, extra-ocular motions intact. Lids and lashes normal. Conjunctiva and sclera are non-icteric and not injected. Cornea within normal limits. Periorbital areas with no swelling, redness, or edema. ENT: Nares patent. No nasal discharge, no septal abnormalities noted. Tympanic membranes are normal and external auditory canals are clear. Oropharynx with no redness, swelling, or masses, exudates, or evidence of obstruction, uvula midline. Mucous membranes moist. Neck: Trachea midline, no thyromegaly or masses palpated, and no cervical lymphadenopathy. Supple, full range of motion without nuchal rigidity, or vertebral point tenderness. No Meningismus. Chest/axilla: Normal chest wall appearance and motion. Nontender with no deformity. No lesions are appreciated. Cardiovascular: Regular rate and rhythm with a normal S1 and S2. No gallops, murmurs, or rubs. Normal PMI, no JVD. No pulse deficits. Respiratory: Lungs have equal breath sounds bilaterally, clear to auscultation and percussion. No rales, rhonchi or wheezes noted. No increased work of breathing, no retractions or nasal flaring. Abdomen/GI: Soft, non-tender, with normal bowel sounds. No distension or tympany. No guarding or rebound. No evidence of tenderness throughout. Back: No spinal tenderness. No costovertebral tenderness. Full range of motion. Male : Normal genitalia with no discharge or lesions. Skin: Warm, dry with normal turgor. Normal color with no rashes, no lesions, and no evidence of cellulitis. Neuro: Awake and alert, GCS 15, oriented to person, place, time, and situation. Cranial nerves II-XII grossly intact. Motor strength 5/5 in all extremities. Sensory grossly intact. Cerebellar exam normal. Normal gait. Psych: Awake, alert, with orientation to person, place and time. Behavior, mood, and affect are within normal limits. 12:40 Musculoskeletal/extremity: Extremities: all appear grossly normal, with no appreciated pain with palpation, ROM: no acute changes, intact in all extremities, Circulation is intact in all extremities. Sensation intact. Compartment Syndrome exam of affected extremity: is normal. Joints: All joints appear normal with full range of motion. Weight bearing: able to fully bear weight, Tendon exam: specific tendon testing normal through active and passive range of motion DVT Exam: no pain, no tenderness, negative Homans' sign noted on exam, no appreciated bluish discoloration, no erythema, no increased warmth, swelling, Vital Signs: 10:57 BP 110 / 63; Pulse 68; Resp 16; Temp 97.9; Pulse Ox 100% on R/A; Weight 65.77 kg; hb Height 5 ft. 1 in. ; Pain 6/10; 10:57 Body Mass Index 27.40 (65.77 kg, 154.94 cm) hb 10:57 Pain Scale: Adult hb MDM: 10:56 Patient medically screened. [facility] 04/02 10:33 Order name: CBC with Diff; Complete Time: 12:40 [facility] 04/02 10:33 Order name: Comprehensive Metabolic Panel [facility] 04/02 10:33 Order name: Urinalysis w/ reflexes; Complete Time: 12:40 [facility] 04/02 10:33 Order name: UDS; Complete Time: 12:40 [facility] Administered Medications: 12:22 Drug: NS 0.9% IV 500 ml IV at bolus once Route: IV; Rate: bolus; Site: left forearm; hb 13:40 Follow up: Response: No adverse reaction; IV Status: Completed infusion; IV Intake: hb 500ml Disposition Summary: 04/02/24 12:44 Discharge Ordered Notes: Location: Home diego Problem: new diego Symptoms: have improved diego Condition: Stable diego Diagnosis - Other bursitis of knee, left knee - mild diego Followup: diego - With: Private Physician - When: 2 - 3 days - Reason: Recheck today's complaints, Continuance of care, Re-evaluation by your physician Followup: diego - With: Bernabe Marie MD - When: 2 - 3 days - Reason: Recheck today's complaints, Re-evaluation by your physician Discharge Instructions: - Discharge Summary Sheet diego - Bursitis diego - Repetitive Strain Injuries diego - Bursitis, [id number] diego Forms: - Medication Reconciliation Form diego - Antibiotic Education diego - Prescription Opioid Use diego - Patient Portal Instructions diego - Leadership Thank You Letter diego Signatures: Dispatcher [employer] Rashaun Delarosa MD MD cha Baxter, Heather, RN RN hb
--- NOTE | 2024-04-02 12:44 | ER ---
Nurse's Notes [facility] Name: Rico Mcneill Age: 54 yrs Sex: Male : 1970 Arrival Date: 04/02/2024 Time: 10:20 Bed 12 Private MD: Diagnosis: Other bursitis of knee, left knee-mild Presentation: 04/02 10:57 Chief complaint: Left knee pain and swelling x 2 days. Denies injury. Coronavirus hb screen: At this time, the client does not indicate any symptoms associated with coronavirus-19. Ebola Screen: No symptoms or risks identified at this time. Initial Sepsis Screen: Does the patient meet any 2 criteria? No. Patient's initial sepsis screen is negative. Does the patient have a suspected source of infection? No. Patient's initial sepsis screen is negative. Risk Assessment: Do you want to hurt yourself or someone else? Patient reports no desire to harm self or others. Onset of symptoms was April 01, 2024. 10:57 Method Of Arrival: Ambulatory hb 10:57 Acuity: OCTAVIO 3 hb Historical: - Allergies: 10:58 NKDA; hb - PMHx: 10:58 ileostomy; Hypertensive disorder; hb - PSHx: 10:58 Small bowel resection with ileostomy; ileostomy reversal ; October 2022; hb - Immunization history:: Adult Immunizations up to date. - Infectious Disease History:: Denies. - Social history:: Smoking status: Patient denies any tobacco usage or history of. - Family history:: not pertinent. Screenin:00 [facility] ED Fall Risk Assessment (Adult) History of falling in the last 3 months, hb including since admission No falls in past 3 months (0 pts) Confusion or Disorientation No (0 pts) Intoxicated or Sedated No (0 pts) Impaired Gait No (0 pts) Mobility Assist Device Used No (0 pt) Altered Elimination No (0 pt) Score/Fall Risk Level 0 - 2 = Low Risk Oriented to surroundings, Maintained a safe environment, Educated pt \T\ family on fall prevention, incl call for assistance when getting out of bed. Abuse screen: Denies threats or abuse. Denies injuries from another. Nutritional screening: No deficits noted. Tuberculosis screening: No symptoms or risk factors identified. Assessment: 13:00 General: Appears in no apparent distress. Behavior is calm, cooperative. Pain: Pain hb currently is 3 out of 10 on a pain scale. Neuro: Level of Consciousness is awake, alert, obeys commands, Oriented to person, place, time, situation. Cardiovascular: Patient's skin is warm and dry. Respiratory: Respiratory effort is even, unlabored, Respiratory pattern is regular, symmetrical. GI: No signs and/or symptoms were reported involving the gastrointestinal system. : No signs and/or symptoms were reported regarding the genitourinary system. EENT: No signs and/or symptoms were reported regarding the EENT system. Derm: Skin is pink, warm \T\ dry. Musculoskeletal: Reports left knee pain. 14:14 Reassessment: Patient appears in no apparent distress at this time. Patient and/or hb family updated on plan of care and expected duration. Pain level reassessed. Patient is alert, oriented x 3, equal unlabored respirations, skin warm/dry/pink. Vital Signs: 10:57 BP 110 / 63; Pulse 68; Resp 16; Temp 97.9; Pulse Ox 100% on R/A; Weight 65.77 kg; hb Height 5 ft. 1 in. ; Pain 6/10; 10:57 Body Mass Index 27.40 (65.77 kg, 154.94 cm) hb 10:57 Pain Scale: Adult hb ED Course: 10:22 Patient arrived in ED. mr 10:32 Rashaun Jiménez MD is Attending Physician. diego 10:58 Triage completed. hb 10:58 Arm band placed on. hb 11:01 UDS Sent. bc6 11:01 Urinalysis w/ reflexes Sent. bc6 11:01 Comprehensive Metabolic Panel Sent. bc6 11:01 CBC with Diff Sent. bc6 11:01 Initial lab(s) drawn, by mt, sent to lab. Inserted saline lock: 20 gauge in left wrist, bc6 using aseptic technique. Blood collected. Flushed with 10 mL NS. 12:17 Tatyana Knight RN is Primary Nurse. hb 12:43 Bernabe Marie MD is Referral Physician. diego 13:00 Patient has correct armband on for positive identification. Provided Education on: use hb of call light . 14:15 No provider procedures requiring assistance completed. IV discontinued, intact, hb bleeding controlled, No redness/swelling at site. Pressure dressing applied. Administered Medications: 12:22 Drug: NS 0.9% IV 500 ml IV at bolus once Route: IV; Rate: bolus; Site: left forearm; hb 13:40 Follow up: Response: No adverse reaction; IV Status: Completed infusion; IV Intake: hb 500ml Medication: 14:14 VIS not applicable for this client. hb Intake: 13:40 IV: 500ml; Total: 500ml. hb Outcome: 12:44 Discharge ordered by . diego 14:15 Discharged to home ambulatory, hb 14:15 Condition: stable 14:15 Discharge instructions given to patient, Instructed on discharge instructions, follow up and referral plans. medication usage, Demonstrated understanding of instructions, follow-up care, medications, 14:16 Patient left the ED. hb Signatures: Rashaun Jiménez MD MD cha Rivera, Mary, Tatyana Rich, RN RN Jessy Stevens bc6
[2024-04-02 14:29] VITALS: BP 110/63; TEMP 97.9; O2SAT 100
== END 2024-04-02 14:16 | disposition home or self-care (01) ==
LOC: ER 10:20
DX: M71.562 Other bursitis, not elsewhere classified, left knee (principal)
CPT/HCPCS: 36415; 80053; 80307; 81001; 85025; 96360; 99284; J7040

== ENCOUNTER 2024-08-30 22:17 | Emergency (ER) | payer SELFPAY ==
--- NOTE | 2024-08-30 23:03 | EDPHYS ---
Physician Documentation [facility] Name: Rico Mcneill Age: 54 yrs Sex: Male : 1970 Arrival Date: 08/30/2024 Time: 22:17 Bed 19 Private MD: ED Physician Tee Grimes HPI: 08/30 22:22 This 54 yrs old Male presents to ER via Unassigned with complaints of Bloody Stools. sp4 23:04 Patient presents with report of episode of bloody stools for the past 1 month., Patient sp4 has history of ileostomy with reversal in 2000 and history of ileus. Patient has history of recurrent abdominal pains. Last admission 08/28/2023 for ileus and abdominal pain.. Historical: - Allergies: 22:32 NKDA; jb4 - PMHx: 22:32 Hypertensive disorder; ileostomy; jb4 - PSHx: 22:32 ileostomy reversal ; October 2022; Small bowel resection with ileostomy; jb4 - Immunization history:: Adult Immunizations not up to date. - Infectious Disease History:: Denies. - Social history:: Smoking status: Patient reports use of chewing tobacco. - Family history:: not pertinent. ROS: 23:04 Constitutional: Negative for fever, chills, and weight loss, positive for rectal sp4 bleeding 23:04 All other systems are negative, Exam: 22:58 Constitutional: This is a well developed, well nourished patient who is awake, alert, sp4 and in no acute distress. Head/Face: Normocephalic, atraumatic. Eyes: Pupils equal round and reactive to light, extra-ocular motions intact. Lids and lashes normal. Conjunctiva and sclera are not injected. Cornea within normal limits. Periorbital areas with no swelling, redness, or edema. ENT: Nares patent. No nasal discharge, no septal abnormalities noted. Tympanic membranes are normal and external auditory canals are clear. Oropharynx with no redness, swelling, or masses, exudates, or evidence of obstruction, uvula midline. Mucous membranes moist. Neck: Trachea midline, no thyromegaly or masses palpated, and no cervical lymphadenopathy. Supple, full range of motion without nuchal rigidity, or vertebral point tenderness. Chest/axilla: Normal chest wall appearance and motion. Nontender with no deformity. No lesions are appreciated. Cardiovascular: Regular rate and rhythm with a normal S1 and S2. No gallops, murmurs, or rubs. Normal PMI, no JVD. No pulse deficits. Respiratory: Lungs have equal breath sounds bilaterally, clear to auscultation and percussion. No rales, rhonchi or wheezes noted. No increased work of breathing, no retractions or nasal flaring. Abdomen/GI: Soft, with normal bowel sounds. No distension or tympany. No guarding or rebound. No evidence of tenderness throughout. Back: No spinal tenderness. No costovertebral tenderness. Skin: Warm, dry with normal turgor. Normal color with no rashes, no lesions, and no evidence of cellulitis. MS/ Extremity: Pulses equal, no cyanosis. Neurovascular intact. Full, normal range of motion. Neuro: Awake and alert, GCS 15, oriented to person, place, time, and situation. Cranial nerves II-XII grossly intact. Motor strength 5/5 in all extremities. Sensory grossly intact. Psych: Awake, alert, with orientation to person, place and time. Behavior, mood, and affect are within normal limits 22:58 Abdomen/GI: Digital rectal exam reveals no bleeding, no melena, no mass, no hemorrhoid, no fissure, no fistula, normal anal tone overall normal exam. , Vital Signs: 22:39 BP 127 / 90 LA (/lg); Pulse 82; Temp 97; Pulse Ox 98% on R/A; sa1 Rustam Coma Score: 22:58 Eye Response: spontaneous(4). Motor Response: obeys commands(6). Verbal Response: sp4 oriented(5). Total: 15. MDM: 22:29 Medical Screening Exam initiated sp4 23:04 Differential diagnosis: gastritis, diverticulitis, hemorrhoids, varices. Data reviewed: sp4 vital signs, nurses notes, old medical records. ED course: Patient has normal exam today with no sign of rectal bleeding. Patient advised nonemergent follow-up with continuous towel roller we will refer to Dr. Orellana. . Administered Medications: No medications were administered Disposition Summary: 08/30/24 23:03 Discharge Ordered Notes: We recommend non emergent follow up with Liability Claims Manager Location: Home sp4 Problem: new sp4 Symptoms: have improved sp4 Condition: Stable sp4 Diagnosis - Episode of rectal bleeding, Normal Physical exam sp4 Followup: sp4 - With: Rogers Andrea MD - When: 7 - 10 days - Reason: Recheck today's complaints Discharge Instructions: - Discharge Summary Sheet sp4 - Rectal Bleeding, [id number] sp4 Forms: - Patient Portal Instructions sp4 Signatures: Nathaniel Kumar RN RN jb4 Tee Grimes MD MD sp4
--- NOTE | 2024-08-30 23:03 | ER ---
Nurse's Notes [facility] Name: Rico Mcneill Age: 54 yrs Sex: Male : 1970 Arrival Date: 08/30/2024 Time: 22:17 Bed 19 Private MD: Diagnosis: Episode of rectal bleeding, Normal Physical exam Presentation: 08/30 22:31 Chief complaint: Patient states: I am having diarrhea that is dark, almost black and it jb4 smells like blood. Coronavirus screen: At this time, the client does not indicate any symptoms associated with coronavirus-19. Ebola Screen: No symptoms or risks identified at this time. Initial Sepsis Screen: Does the patient meet any 2 criteria? No. Patient's initial sepsis screen is negative. Does the patient have a suspected source of infection? No. Patient's initial sepsis screen is negative. Risk Assessment: Do you want to hurt yourself or someone else? Patient reports no desire to harm self or others. Onset of symptoms was August 30, 2024. Transition of care: patient was not received from another setting of care. 22:31 Method Of Arrival: Ambulatory jb4 22:31 Acuity: OCTAVIO 3 jb4 Triage Assessment: 22:32 General: Appears in no apparent distress. comfortable, Behavior is calm, cooperative, jb4 appropriate for age. Pain: Denies pain. Cardiovascular: Patient's skin is warm and dry. Respiratory: Airway is patent Respiratory effort is even, unlabored, Respiratory pattern is regular, symmetrical. GI: Abdomen is flat, non-distended, Reports diarrhea, bloody stool. Historical: - Allergies: 22:32 NKDA; jb4 - PMHx: 22:32 Hypertensive disorder; ileostomy; jb4 - PSHx: 22:32 ileostomy reversal ; October 2022; Small bowel resection with ileostomy; jb4 - Immunization history:: Adult Immunizations not up to date. - Infectious Disease History:: Denies. - Social history:: Smoking status: Patient reports use of chewing tobacco. - Family history:: not pertinent. Screenin:30 [facility] ED Fall Risk Assessment (Adult) History of falling in the last 3 months, rg5 including since admission No falls in past 3 months (0 pts) Confusion or Disorientation No (0 pts) Intoxicated or Sedated No (0 pts) Impaired Gait No (0 pts) Mobility Assist Device Used No (0 pt) Altered Elimination No (0 pt) Score/Fall Risk Level 0 - 2 = Low Risk Oriented to surroundings, Maintained a safe environment, Hourly rounding (assess needs \T\ fall precautionary measures) done. Abuse screen: Denies threats or abuse. Nutritional screening: No deficits noted. Tuberculosis screening: No symptoms or risk factors identified. Assessment: 22:30 General: Appears in no apparent distress. Behavior is calm, cooperative. Pain: Denies rg5 pain. Neuro: Level of Consciousness is awake, alert, Oriented to person, place, time. Cardiovascular: Denies chest pain. Respiratory: Airway is patent Trachea midline Respiratory effort is even, unlabored. GI: No signs and/or symptoms were reported involving the gastrointestinal system. GI: Abd is soft and non tender Reports bloody stool. : No signs and/or symptoms were reported regarding the genitourinary system. Derm: Skin is intact, Skin is dry, Skin is normal. Musculoskeletal: Circulation, motion, and sensation intact. Range of motion: intact in all extremities. Vital Signs: 22:39 BP 127 / 90 LA (/lg); Pulse 82; Temp 97; Pulse Ox 98% on R/A; sa1 [place] Coma Score: 22:58 Eye Response: spontaneous(4). Motor Response: obeys commands(6). Verbal Response: sp4 oriented(5). Total: 15. ED Course: 22:19 Patient arrived in ED. ra3 22:21 Tee Grimes MD is Attending Physician. sp4 22:29 Tanmay Ken, RN is Primary Nurse. rg5 22:30 Patient has correct armband on for positive identification. Provided Education on: post rg5 er care. Door closed. Noise minimized. Warm blanket given. Verbal reassurance given. 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 Patient did not have IV access during this rg5 emergency room visit. 22:31 Triage completed. jb4 22:32 Arm band placed on right wrist. jb4 23:02 Rogers Andrea MD is Referral Physician. sp4 Administered Medications: No medications were administered Medication: 22:30 VIS not applicable for this client. rg5 Outcome: 23:03 Discharge ordered by . sp4 23:12 Discharged to home ambulatory, rg5 23:12 Condition: stable rg5 23:12 Discharge instructions given to patient, Instructed on discharge instructions, follow up and referral plans. Demonstrated understanding of instructions, follow-up care, 23:12 Patient left the ED. rg5 Signatures: Nathaniel Kumar, RN RN jb4 Tee Grimes MD MD sp4 Angy Em ra3 Tanmay Ken RN RN rg5 Sultan андрей Landry
[2024-08-30 23:32] VITALS: BP 127/90; TEMP 97; O2SAT 98
== END 2024-08-30 23:12 | disposition home or self-care (01) ==
LOC: ER 22:17
DX: K62.5 Hemorrhage of anus and rectum (principal)
CPT/HCPCS: 99282